=== PATIENT | female | born 1970 | race Caucasian/White ===

== ENCOUNTER 2017-12-24 19:26 | Observation (INO) | payer OTHER ==
--- NOTE | 2017-12-24 20:17 | EDPHYS ---
Physician Documentation [facility] Name: Heather Coon Age: 47 yrs Sex: Female : 1970 Arrival Date: 12/24/2017 Time: 19:32 Bed 30 Private MD: Aki Hoffmann E ED Physician Derrick Santillan HPI: 12/24 20:12 This 47 yrs old Female presents to ER via Ambulatory with complaints of fabrice Abdominal Pain, Vomiting. 20:12 The patient presents to the emergency department with nausea, vomiting, abdominal pain, fabrice of the left upper quadrant and left lower quadrant. Onset: The symptoms/episode began/occurred 5 day(s) ago. Possible causes: unknown. The symptoms are aggravated by movement, pressure, food , The symptoms are alleviated by remaining still. Associated signs and symptoms: The patient has no apparent associated signs or symptoms. Severity of symptoms: At their worst the symptoms were moderate. The patient has not experienced similar symptoms in the past. 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 - Social history:: Smoking status: Patient uses tobacco products, smokes one pack cigarettes per day. - Ebola Screening: : Patient negative for fever greater than or equal to 101.5 degrees Fahrenheit, and additional compatible Ebola Virus Disease symptoms Patient denies exposure to infectious person Patient denies travel to an Ebola-affected area in the 21 days before illness onset No symptoms or risks identified at this time. - Family history:: not pertinent. ROS: 20:12 Constitutional: Negative for fever, chills, and weight loss, Eyes: Negative for injury, fabrice pain, redness, and discharge, ENT: Negative for injury, pain, and discharge, Neck: Negative for injury, pain, and swelling, Cardiovascular: Negative for chest pain, palpitations, and edema, Respiratory: Negative for shortness of breath, cough, wheezing, and pleuritic chest pain, Back: Negative for injury and pain, : Negative for injury, bleeding, discharge, and swelling, MS/Extremity: Negative for injury and deformity, Skin: Negative for injury, rash, and discoloration, Neuro: Negative for headache, weakness, numbness, tingling, and seizure, Psych: Negative for depression, anxiety, suicide ideation, homicidal ideation, and hallucinations, Allergy/Immunology: Negative for hives, rash, and allergies, Endocrine: Negative for neck swelling, polydipsia, polyuria, polyphagia, and marked weight changes, Hematologic/Lymphatic: Negative for swollen nodes, abnormal bleeding, and unusual bruising. 20:12 Abdomen/GI: Positive for abdominal pain, nausea, vomiting, of the left upper quadrant and left lower quadrant. Exam: 20:12 Constitutional: This is a well developed, well nourished patient who is awake, alert, fabrice and in no acute distress. Head/Face: Normocephalic, atraumatic. Eyes: Pupils equal round and reactive to light, extra-ocular motions intact. Lids and lashes normal. Conjunctiva and sclera are non-icteric and not injected. Cornea within normal limits. Periorbital areas with no swelling, redness, or edema. ENT: Nares patent. No nasal discharge, no septal abnormalities noted. Tympanic membranes are normal and external auditory canals are clear. Oropharynx with no redness, swelling, or masses, exudates, or evidence of obstruction, uvula midline. Mucous membranes moist. Neck: Trachea midline, no thyromegaly or masses palpated, and no cervical lymphadenopathy. Supple, full range of motion without nuchal rigidity, or vertebral point tenderness. No Meningismus. Chest/axilla: Normal chest wall appearance and motion. Nontender with no deformity. No lesions are appreciated. Back: No spinal tenderness. No costovertebral tenderness. Full range of motion. Female : Normal external genitalia. Skin: Warm, dry with normal turgor. Normal color with no rashes, no lesions, and no evidence of cellulitis. MS/ Extremity: Pulses equal, no cyanosis. Neurovascular intact. Full, normal range of motion. Neuro: Awake and alert, GCS 15, oriented to person, place, time, and situation. Cranial nerves II-XII grossly intact. Motor strength 5/5 in all extremities. Sensory grossly intact. Cerebellar exam normal. Normal gait. Psych: Awake, alert, with orientation to person, place and time. Behavior, mood, and affect are within normal limits. 20:12 Cardiovascular: Rate: tachycardic, Rhythm: regular, Pulses: Pulses are 4+ in bilateral radial, brachial, femoral, popliteal, posterior tibial and and dorsalis pedis arteries.. Heart sounds: normal, Edema: is not appreciated, JVD: is not appreciated. 20:19 Respiratory: the patient does not display signs of respiratory distress, Respirations: fabrice normal, Breath sounds: rhonchi, wheezing: inspiratory expiratory Vital Signs: 19:39 BP 131 / 100; Pulse 117; Resp 22; Temp 97.8; Pulse Ox 98% on R/A; Weight 81.65 kg; aj Height 5 ft. 3 in. (160.02 cm); 21:00 BP 142 / 84; Pulse 80; Resp 20; Pulse Ox 98% on R/A; Pain 6/10; ed1 23:54 BP 153 / 93; Pulse 82; Resp 20; Temp 98.9(O); Pulse Ox 97% on R/A; Pain 6/10; ed1 19:39 Body Mass Index 31.89 (81.65 kg, 160.02 cm) aj MDM: 19:47 Patient medically screened. [facility] 20:12 Data reviewed: vital signs, nurses notes, lab test result(s), EKG, radiologic studies, [facility] CT scan, plain films. 12/24 20:10 Order name: Basic Metabolic Panel; Complete Time: :36 [facility] 12/24 20:10 Order name: BNP; Complete Time: 21:36 [facility] 12/24 20:10 Order name: CBC with Diff; Complete Time: 21:36 [facility] 12/24 20:10 Order name: Ckmb; Complete Time: 21:36 [facility] 12/24 20:10 Order name: CPK; Complete Time: :36 [facility] 12/24 20:10 Order name: LFT's; Complete Time: 21:36 [facility] 12/24 20:10 Order name: Magnesium; Complete Time: :36 [facility] 12/24 20:10 Order name: PT-INR; Complete Time: :36 [facility] 12/24 20:10 Order name: Ptt, Activated; Complete Time: 21:36 [facility] 12/24 20:10 Order name: Troponin (emerg Dept Use Only); Complete Time: 21:36 [facility] 12/24 20:10 Order name: Lipase; Complete Time: 21:36 [facility] 12/24 20:10 Order name: Urine Culture [facility] 12/24 23:06 Order name: Urine Dipstick--Ancillary (enter results) ms 12/24 23:08 Order name: Urine --Ancillary (enter results) ms 12/24 20:10 Order name: Urine Test (obtain specimen); Complete Time: 23:05 [facility] 12/24 20:10 Order name: XRAY Chest (1 view) [facility] 12/24 20:10 Order name: EKG; Complete Time: 20:11 [facility] 12/24 20:10 Order name: Cardiac monitoring; Complete Time: 21:01 [facility] 12/24 20:10 Order name: CT Abd/Pelvis - W/Contrast [facility] 12/24 22:02 Order name: RAD; Complete Time: 23:19 EDMS 12/24 23:10 Order name: Urine Dipstick-Ancillary; Complete Time: 23:19 EDAR 12/25 00:19 Order name: Urine --Ancillary EDAR 12/24 20:10 Order name: EKG - Nurse/Tech; Complete Time: 22:21 [facility] 12/24 20:10 Order name: IV Saline Lock; Complete Time: 21:01 [facility] 12/24 20:10 Order name: Labs collected and sent; Complete Time: 21:01 [facility] 12/24 20:10 Order name: O2 Per Protocol; Complete Time: 21:01 [facility] 12/24 20:10 Order name: O2 Sat Monitoring; Complete Time: 21:01 [facility] 12/24 20:10 Order name: Urine Dipstick-Ancillary (obtain specimen); Complete Time: 23:05 [facility] Administered Medications: 20:36 Drug: morphine 4 mg Route: IVP; Site: left antecubital; fc 21:41 Follow up: Response: No adverse reaction; Pain is decreased ed1 20:36 Drug: Zofran 4 mg Route: IVP; Site: left antecubital; fc 21:41 Follow up: Response: No adverse reaction; Nausea is decreased ed1 20:36 Drug: Pepcid 20 mg Route: IVP; Site: left antecubital; fc 21:41 Follow up: Response: No adverse reaction ed1 20:57 Drug: NS 0.9% 1000 ml Route: IV; Rate: 1 bolus; Site: left antecubital; ed1 23:55 Follow up: IV Status: Completed infusion; IV Intake: 1000ml ed1 20:57 Drug: Flagyl 500 mg Volume: 100 ml; Route: IVPB; Rate: 200 ml/hr; Infused Over: 30 ed1 mins; Site: left antecubital; 21:42 Follow up: Response: No adverse reaction; IV Status: Completed infusion; IV Intake: ed1 100ml 21:42 Drug: Cipro 400 mg Volume: 200 ml; Route: IVPB; Infused Over: 60 mins; Site: left ed1 antecubital; 23:05 Follow up: Response: No adverse reaction; IV Status: Completed infusion ed1 21:42 Drug: Zofran 4 mg Route: IVP; Site: left antecubital; ed1 23:05 Follow up: Response: No adverse reaction; Nausea is decreased ed1 23:11 Drug: Albuterol - atroVENT (3:1) (2.5 mg - 0.5 mg) 3 ml Route: Nebulizer; ed1 23:54 Follow up: Response: No adverse reaction ed1 Disposition: 12/24/17 20:16 Hospitalization ordered by Darrick Fry for Inpatient Admission. Preliminary diagnosis are Abdominal tenderness, Diverticulitis of small intestine without perforation or abscess without bleeding. - Bed requested for Telemetry/MedSurg (Inpatient). - Status is Inpatient Admission. ed1 - Condition is Stable. - Problem is new. - Symptoms have improved. UTI on Admission? No Signatures: Dispatcher [employer] EDMS Aicha Vera RN RN mw Myers, Amanda, RN RN aj Anderson, Corey, MD MD cha Chretien, Felicia RN Nereyda Cabral, PAPER SORTER PAPER SORTER ed1 Corrections: (The following items were deleted from the chart) 20:21 20:16 Hospitalization Ordered by Darrick Fry MD for Inpatient Admission. Preliminary jeison diagnosis is Abdominal tenderness; Diverticulitis of small intestine without perforation or abscess without bleeding. Bed requested for Telemetry/MedSurg (Inpatient). Status is Inpatient Admission. Condition is Stable. Problem is new. Symptoms have improved. UTI on Admission? No. fabrice 12/25 00:45 12/24 20:21 12/24/2017 20:16 Hospitalization Ordered by Darrick Fry MD for Inpatient ed1 Admission. Preliminary diagnosis is Abdominal tenderness; Diverticulitis of small intestine without perforation or abscess without bleeding. Bed requested for Telemetry/MedSurg (Inpatient). Status is Inpatient Admission. Condition is Stable. Problem is new. Symptoms have improved. UTI on Admission? No. mw
--- NOTE | 2017-12-24 20:17 | ER ---
Nurse's Notes [facility] Name: Heather Coon Age: 47 yrs Sex: Female : 1970 Arrival Date: 12/24/2017 Time: 19:32 Bed 30 Private MD: Aki Hoffmann E Diagnosis: Abdominal tenderness;Diverticulitis of small intestine without perforation or abscess without bleeding Presentation: 12/24 19:37 Presenting complaint: Patient states: LLQ pain with vomiting for 5 days. Transition of aj care: patient was not received from another setting of care. Onset of symptoms was December 19, 2017. Risk Assessment: Do you want to hurt yourself or someone else? Patient reports no desire to harm self or others. Care prior to arrival: None. 19:37 Method Of Arrival: Ambulatory aj 19:37 Acuity: ANDER 3 aj 23:53 Initial Sepsis Screen: Does the patient meet any 2 criteria? No. Patient's initial ed1 sepsis screen is negative. Does the patient have a suspected source of infection? No. Patient's initial sepsis screen is negative. Triage Assessment: 19:39 General: Appears in no apparent distress. uncomfortable, Behavior is calm, cooperative, aj appropriate for age. Pain: Complains of pain in left lower quadrant. Neuro: Level of Consciousness is awake, alert, obeys commands, Oriented to person, place, time, situation, Appropriate for age. Respiratory: Airway is patent Respiratory effort is even, unlabored, Respiratory pattern is regular, symmetrical. GI: Reports lower abdominal pain, nausea, vomiting. Derm: Skin is intact, is healthy with good turgor, Skin is pink, warm \T\ dry. normal. 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 - Social history:: Smoking status: Patient uses tobacco products, smokes one pack cigarettes per day. - Ebola Screening: : Patient negative for fever greater than or equal to 101.5 degrees Fahrenheit, and additional compatible Ebola Virus Disease symptoms Patient denies exposure to infectious person Patient denies travel to an Ebola-affected area in the 21 days before illness onset No symptoms or risks identified at this time. - Family history:: not pertinent. Screenin:55 Abuse screen: Denies threats or abuse. Denies injuries from another. Nutritional ed1 screening: No deficits noted. Tuberculosis screening: No symptoms or risk factors identified. Fall Risk None identified. Assessment: 19:55 General: Appears uncomfortable, Behavior is calm, cooperative. Pain: Complains of pain ed1 in abdomen and left lower quadrant Pain does not radiate. Pain currently is 10 out of 10 on a pain scale. Quality of pain is described as sharp, shooting, stabbing, Pain began 5 days ago. Neuro: Level of Consciousness is awake, alert, obeys commands, Oriented to person, place, time, situation. Cardiovascular: Denies chest pain, Heart tones S1 S2 present. Respiratory: Airway is patent Respiratory effort is even, unlabored, Respiratory pattern is regular, symmetrical, Breath sounds are clear bilaterally. GI: Abdomen is obese, Bowel sounds present X 4 quads. Abd is soft and non tender X 4 quads. Reports nausea, vomiting, Patient currently denies diarrhea. : No signs and/or symptoms were reported regarding the genitourinary system. EENT: No signs and/or symptoms were reported regarding the EENT system. Derm: Skin is pink, warm \T\ dry. Musculoskeletal: Circulation, motion, and sensation intact. 21:00 Reassessment: Patient appears in no apparent distress at this time. Patient and/or ed1 family updated on plan of care and expected duration. Pain level reassessed. Patient is alert, oriented x 3, equal unlabored respirations, skin warm/dry/pink. Patient states feeling better. Patient states symptoms have improved. 21:43 Reassessment: Pt vomiting. New orders received. ed1 23:54 Reassessment: Patient appears in no apparent distress at this time. Patient and/or ed1 family updated on plan of care and expected duration. Pain level reassessed. Patient is alert, oriented x 3, equal unlabored respirations, skin warm/dry/pink. Patient states symptoms have not improved. Vital Signs: 19:39 BP 131 / 100; Pulse 117; Resp 22; Temp 97.8; Pulse Ox 98% on R/A; Weight 81.65 kg; aj Height 5 ft. 3 in. (160.02 cm); 21:00 BP 142 / 84; Pulse 80; Resp 20; Pulse Ox 98% on R/A; Pain 6/10; ed1 23:54 BP 153 / 93; Pulse 82; Resp 20; Temp 98.9(O); Pulse Ox 97% on R/A; Pain 6/10; ed1 19:39 Body Mass Index 31.89 (81.65 kg, 160.02 cm) aj ED Course: 19:32 Patient arrived in ED. es 19:33 Aki Hoffmann MD is Private Physician. es 19:38 Triage completed. aj 19:39 Arm band placed on left wrist. Patient placed in an exam room. aj 19:40 Nereyda Nelson LVN is Primary Nurse. ed1 19:47 Derrick Santillan MD is Attending Physician. fabrice 19:53 Initial lab(s) drawn, by me, held in ED. Inserted saline lock: 22 gauge in right ed1 antecubital area, using aseptic technique. Blood collected. 19:55 Patient has correct armband on for positive identification. Bed in low position. Call ed1 light in reach. 20:14 Oral contrast given. kw1 20:15 Darrick Fry MD is Hospitalizing Provider. fabrice 20:25 X-ray completed. Portable x-ray completed in exam room. Patient tolerated procedure mh1 well. 22:[address] 2 23:04 CT completed. Patient tolerated procedure well. Patient moved back from CT. ma 23:53 No provider procedures requiring assistance completed. Patient admitted, IV remains in ed1 place. intact. Administered Medications: 20:36 Drug: morphine 4 mg Route: IVP; Site: left antecubital; fc 21:41 Follow up: Response: No adverse reaction; Pain is decreased ed1 20:36 Drug: Zofran 4 mg Route: IVP; Site: left antecubital; fc 21:41 Follow up: Response: No adverse reaction; Nausea is decreased ed1 20:36 Drug: Pepcid 20 mg Route: IVP; Site: left antecubital; fc 21:41 Follow up: Response: No adverse reaction ed1 20:57 Drug: NS 0.9% 1000 ml Route: IV; Rate: 1 bolus; Site: left antecubital; ed1 23:55 Follow up: IV Status: Completed infusion; IV Intake: 1000ml ed1 20:57 Drug: Flagyl 500 mg Volume: 100 ml; Route: IVPB; Rate: 200 ml/hr; Infused Over: 30 ed1 mins; Site: left antecubital; 21:42 Follow up: Response: No adverse reaction; IV Status: Completed infusion; IV Intake: ed1 100ml 21:42 Drug: Cipro 400 mg Volume: 200 ml; Route: IVPB; Infused Over: 60 mins; Site: left ed1 antecubital; 23:05 Follow up: Response: No adverse reaction; IV Status: Completed infusion ed1 21:42 Drug: Zofran 4 mg Route: IVP; Site: left antecubital; ed1 23:05 Follow up: Response: No adverse reaction; Nausea is decreased ed1 23:11 Drug: Albuterol - atroVENT (3:1) (2.5 mg - 0.5 mg) 3 ml Route: Nebulizer; ed1 23:54 Follow up: Response: No adverse reaction ed1 Intake: 21:42 IV: 100ml; Total: 100ml. ed1 23:55 IV: 1000ml; Total: 1100ml. ed1 Outcome: 20:16 Decision to Hospitalize by Provider. [facility] 12/25 00:45 Admitted to Tele accompanied by tech, via wheelchair, room 412, with chart, Report ed1 called to BETH Smallwood Condition: stable Discharge instructions given to patient, Instructed on the need for admit, Demonstrated understanding of instructions. 00:45 Patient left the ED. ed1 Signatures: Freida Leonard RN Derrick Damon MD MD cha Salyer, Edna es Harvey, Martha 1 Purnima Alston RN RN fc Riggs, Erika, LVN LVN ed1 Titus Ramirez Victoria 2 Lisette Arrieta kw1
[2017-12-24] MEDS ORDERED: NA CHLORIDE 0.9% 0 ML ONE (20:23)
[2017-12-24] MEDS ORDERED: MORPHINE 4 MG/ML SYR ONE (20:23)
[2017-12-24] MEDS ORDERED: ONDANSETRON 4 MG/2 ML VIAL ONE ×2 (20:23→21:39)
[2017-12-24] MEDS ORDERED: CIPROFLOXACIN 400mg IV 400 MG/200 ML BAG IV ONE (20:23)
[2017-12-24] MEDS ORDERED: METRONIDAZOLE 500mg IVPB 500 MG/100 ML BAG IV ONE (20:23)
[2017-12-24] MEDS ORDERED: FAMOTIDINE 20 MG/2 ML VIAL IV ONE (20:23)
[2017-12-24 20:46] LABS: Absolute Lymphocytes (CBC) 2.8 K/uL (0.7-4.9); Absolute Monocytes 0.9 K/uL (0.1-1.3); Absolute Neutrophil 7.1 K/uL (1.8-8.0); Basophils % 0.9 % (0-1.3); Hematocrit 36.6 % (36.0-45.0); Lymphocytes % 25.4 % (15.3-44.8); MCV 81.2 fL (80-100); Monocytes % 8.2 % (3.3-12.3)
[2017-12-24 20:50] LABS: Protime INR 0.95
[2017-12-24 20:56] LABS: Bicarbonate 25 mEq/L (21-31); Glucose Level 99 mg/dL (65-120); Lipase 37 U/L (22-51); Potassium 3.7 mEq/L (3.6-5.0); Sodium Level 138 mEq/L (135-145)
[2017-12-24 21:02] LABS: ALT/SGPT 17 IU/L (10-60); AST/SGOT 20 IU/L (10-42); Albumin 3.9 g/dL (3.2-5.5); Alkaline Phosphatase 68 IU/L (42-121); BUN Blood Urea Nitrogen 20 mg/dL (6-20); Bilirubin Direct < 0.1 mg/dL (0-0.2); Bilirubin Total 0.2 mg/dL (0.3-1.2); Creatine Phosphokinase 322 IU/L (22-269); Magnesium 1.9 mg/dL (1.8-2.5); Protein, Total 7.1 g/dL (6.0-8.3)
[2017-12-24] MEDS ORDERED: ACETAMINOPHEN 500 MG TAB PO PRN (21:27)
[2017-12-24] MEDS ORDERED: ALBUTEROL 2.5 MG/3 ML NEB SOL ONE (21:37)
[2017-12-24] MEDS ORDERED: IPRATROPIUM BROM 0.5MG/2.5ML ONE (21:37)
[2017-12-24] MEDS ORDERED: Levofloxacin500mg IV 500 MG/100 ML BAG IV SCH (22:00)
--- NOTE | 2017-12-24 22:02 | RAD REPORT ---
EXAM DESCRIPTION: Leno Single View12/24/2017 8:28 pm CLINICAL HISTORY: Abdominal pain COMPARISON: December 2016 FINDINGS: The lungs appear clear of acute infiltrate. The heart is normal size IMPRESSION: No acute abnormalities displayed
[2017-12-24 23:09] LABS: Urine Blood 1+ (NEG); Urine Glucose NEGATIVE (NEG); Urine Protein NEGATIVE (NEG); Urine Specific Gravity 1.025 (1.005-1.030)
[2017-12-25 00:19] LABS: Urine Specific Gravity 1.025 (1.005-1.030)
[2017-12-25 01:18] VITALS: BMI 37.0
[2017-12-25] MEDS: ONDANSETRON 4 MG/2 ML VIAL IV PRN ×2 (01:41→07:37)
[2017-12-25] MEDS: NA CHLORIDE 0.9% 1,000 ML IV SCH ×2 (01:42→08:00)
[2017-12-25] MEDS: MORPHINE 4 MG/ML SYR IV PRN ×2 (02:14→07:34)
[2017-12-25 04:46] LABS: Absolute Lymphocytes (CBC) 3.5 K/uL (0.7-4.9); Absolute Monocytes 0.7 K/uL (0.1-1.3); Absolute Neutrophil 4.9 K/uL (1.8-8.0); Basophils % 0.9 % (0-1.3); Eosinophils % 1.6 % (0-4.4); Hematocrit 33.8 % (36.0-45.0); Lymphocytes % 37.3 % (15.3-44.8); MCH 26.7 pg (27.0-35.0); MCV 81.8 fL (80-100); MPV 6.8 fL (7.6-11.3); RBC Red Blood Cell Count 4.14 M/uL (3.86-4.86)
[2017-12-25 05:14] LABS: Albumin 3.3 g/dL (3.2-5.5); Bilirubin Total 0.3 mg/dL (0.3-1.2); Protein, Total 5.9 g/dL (6.0-8.3)
[2017-12-25] MEDS: METRONIDAZOLE 500mg IVPB 500 MG/100 ML BAG IV SCH ×2 (05:16)
[2017-12-25 05:24] LABS: Potassium 3.8 mEq/L (3.6-5.0)
--- NOTE | 2017-12-25 06:02 | P.HP ---
Certification for Inpatient Patient admitted to: Inpatient With expected LOS: >2 Midnights Patient will require the following post-hospital care: None Practitioner: I am a practitioner with admitting privileges, knowledge of patient current condition, hospital course, and medical plan of care. Services: Services provided to patient in accordance with Admission requirements found in Title 42 Section 412.3 of the Code of Federal Regulations Patient History Date of Service: 12/24/17 Reason for admission: Abdominal pain/diverticulitis History of Present Illness: Patient is a 47-year-old female came into the hospital with abdominal discomfort. Pain was diffuse abdomen. Pain has been on for the last 24 hr. Patient's pain had slowly worsened. Patient had a prior diagnosis of diverticulitis about a couple of years ago. She was supposed to follow-up for a colonoscopy. However, this was not done. Patient has had a recurrent flare- up of her diverticulitis. Patient has had fever shakes and chills along with abdominal pain and nausea and vomiting. Patient has also had diarrhea for the last couple of days. Patient will be admitted to the hospital for IV antibiotic therapy. Patient will be NPO and if nausea and vomiting have improved then will start her on a clear liquid diet in the morning. Patient will also need to follow-up for outpatient colonoscopy. Allergies fluoxetine HCl [From Prozac] Allergy (Mild, Verified 12/25/17 01:35) Hives/Rash Green tea Allergy (Unknown, Uncoded 12/25/17 01:36) Hives/Rash Home Medications: NK [No Home Meds] 01/01/15 - Past Medical/Surgical History Has patient received pneumonia vaccine in the past: Yes Diabetic: No -: COPD -: HTN -: migraines -: depression -: anxiety -: OCD -: Insomnia -: Pancreatitis -: 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 -: cholecystectomy -: 5 hand surgeries -: tonsilectomy - Family History Father History Unknown: Yes Mother Medical History: Heart disease, Hypertension, GI disease, Diabetes, Liver disease, Kidney disease - Social History Smoking Status: Current every day smoker Alcohol use: Yes CD- Drugs: Yes Caffeine use: Yes Place of Residence: Home Review of Systems 10-point ROS is otherwise unremarkable Physical Examination - Vital Signs Temperature: 97.7 F Blood Pressure: 133/86 Pulse: 90 Respirations: 20 Pulse Ox (%): 98 - Physical Exam General: Alert, In no apparent distress, Oriented x3 HEENT: Atraumatic, PERRLA, Mucous membr. moist/pink, EOMI, Sclerae nonicteric Neck: Supple, 2+ carotid pulse no bruit, No LAD, Without JVD or thyroid abnormality Respiratory: Clear to auscultation bilaterally, Normal air movement Cardiovascular: Regular rate/rhythm, Normal S1 S2, No murmurs Gastrointestinal: Normal bowel sounds, Soft and benign, Non-distended, No rebound, No guarding, Tenderness Musculoskeletal: No clubbing, No swelling, No tenderness Integumentary: No rashes Neurological: Normal gait, Normal speech, Normal strength at 5/5 x4 extr, Normal tone, Sensation intact, Cranial nerves 3-12 intact, Normal affect Lymphatics: No axilla or inguinal lymphadenopathy - Studies Laboratory Data (last 24 hrs) 12/24/17 19:53: PT 11.2, INR 0.95, APTT 29.2 12/24/17 19:53: WBC 11.1 H, Hgb 12.1, Hct 36.6, Plt Count 495 H 12/24/17 19:53: B-Natriuretic Peptide 14 12/24/17 19:53: Sodium 138, Potassium 3.7, BUN 20, Creatinine 1.00, Glucose 99, Magnesium 1.9, Total Bilirubin 0.2 L, AST 20, ALT 17, Alkaline Phosphatase 68, Lipase 37 Assessment & Plan - Problems (Diagnosis) (1) Diverticulitis Current Visit: Yes Status: Acute (2) Diarrhea in adult patient Current Visit: Yes Status: Acute (3) Intractable nausea and vomiting Onset Date: 01/01/15 Current Visit: No Status: Acute - Plan Pain: 1. Continue with IV hydration 2. Continue with IV antibiotics 3. Continue with pain control 4. NPO 5. GI consultation; outpatient colonoscopy in 6-12 weeks 6. Serial H&H, and we will monitor CBC, BMP, LFTs and lipase along with electrolytes. 7. GI and DVT prophylaxis Discharge Plan: Home Plan to discharge in: 24 Hours - Advance Directives Does patient have a Living Will: No Does patient have a Durable POA for Healthcare: No - Code Status/Comfort Care Code Status Assessed: Yes Code Status: Full Code Critical Care: No Time Spent Managing PTS Care (In Minutes): 50
[2017-12-25] MEDS ORDERED: KCL 20 MEQ/100 mL IVPB 20 MEQ/100 ML BAG IV SCH (07:00)
--- NOTE | 2017-12-25 07:20 | EKG ---
Test Date: 2017-12-24 Test Time: 22:05:53 Travel Assistant: VICENTA MEASUREMENT RESULTS: Intervals: Rate: 72 [place]: 162 QRSD: 90 QT: 344 QTc: 376 [place]: P: 260 [place]: 162 QRS: 105 T: 23 INTERPRETIVE STATEMENTS: Unusual P axis, possible ectopic atrial rhythm with undetermined rhythm irregularity Rightward axis Pulmonary disease pattern Nonspecific T wave abnormality Abnormal ECG Compared to ECG 07/07/2017 21:30:42 T-wave abnormality now present Sinus rhythm no longer present Electronically Signed On 12-25-17 07:19:35 CDT by Migel Warren
[2017-12-25] MEDS ORDERED: Morphine 2 MG/2 ML SYR IV PRN (07:37)
[2017-12-25 08:07] VITALS: BP 190/87; TEMP 98.1
--- NOTE | 2017-12-25 08:29 | RAD REPORT ---
EXAM DESCRIPTION: CTAbdomen Pelvis W Contrast - 12/25/2017 5:06 am CLINICAL HISTORY: Abdominal pain. COMPARISON: 12/28/2014, 11/13/2014 TECHNIQUE: Biphasic CT imaging of the abdomen and pelvis was performed with 100 ml non-ionic IV cont rast. All CT scans are performed using dose optimization technique as appropriate and may include automated exposure control or mA/KV adjustment according to patient size. FINDINGS: The lung bases are clear. The liver, spleen, pancreas, right adrenal gland and kidneys are within normal limits. 2.7 cm left ad renal mass is noted, likely an adenoma and appearing unchanged. No bowel obstruction, free air, free fluid or abscess. Mild sigmoid diverticulosis. The appendix is n ormal. No evidence of significant lymphadenopathy. No suspicious bony findings. IMPRESSION: No acute intra-abdominal or pelvic finding. 2.7 cm left adrenal adenoma, stable.
[2017-12-25] MEDS ORDERED: ENOXAPARIN 40 MG/0.4 ML SQ SCH (09:00)
[2017-12-25 13:18] VITALS: O2SAT 100
--- NOTE | 2017-12-25 16:59 | P.DS ---
Admission Date: 12/24/17 Discharge Date: 12/25/17 Disposition: ROUTINE DISCHARGE Discharge Condition: FAIR Reason for Admission: Abdominal pain/diverticulitis - Problems (1) Diverticulitis Onset Date: 12/25/17 Status: Acute Brief History of Present Illness: Patient is a 47-year-old female came into the hospital with abdominal discomfort. Pain was diffuse abdomen. Pain has been on for the last 24 hr. Patient's pain had slowly worsened. Patient had a prior diagnosis of diverticulitis about a couple of years ago. She was supposed to follow-up for a colonoscopy. However, this was not done. Patient has had a recurrent flare- up of her diverticulitis. Patient has had fever shakes and chills along with abdominal pain and nausea and vomiting. Patient has also had diarrhea for the last couple of days. Patient will be admitted to the hospital for IV antibiotic therapy. Patient will be NPO and if nausea and vomiting have improved then will start her on a clear liquid diet in the morning. Patient will also need to follow-up for outpatient colonoscopy. Hospital Course: She was admitted for acute diverticulitis and was treated with IV abx with improvemnt. WBC is normal. She wants to go home. She is stable and ready to be discharged on oral abx. She has no complications. F/U with GI Dr Vazquez. Vital Signs/Physical Exam: Temp Pulse Resp BP Pulse Ox 98.1 F 84 20 190/87 H 100 12/25/17 08:00 12/25/17 08:00 12/25/17 08:00 12/25/17 08:00 12/25/17 08:00 General: Alert, In no apparent distress HEENT: Atraumatic, PERRLA, EOMI Neck: Supple, JVD not distended Respiratory: Clear to auscultation bilaterally, Normal air movement Cardiovascular: Regular rate/rhythm, Normal S1 S2 Gastrointestinal: Normal bowel sounds, Tenderness Musculoskeletal: No tenderness Integumentary: No rashes Neurological: Normal speech, Normal tone, Normal affect Lymphatics: No axilla or inguinal lymphadenopathy Laboratory Data at Discharge: WBC 9.3 K/uL (4.3-10.9) D 12/25/17 04:13 Hgb 11.1 g/dL (12.0-15.0) L 12/25/17 04:13 Hct 33.8 % (36.0-45.0) L 12/25/17 04:13 Plt Count 467 K/uL (152-406) H 12/25/17 04:13 PT 11.2 SECONDS (9.5-12.5) 12/24/17 19:53 INR 0.95 12/24/17 19:53 APTT 29.2 SECONDS (24.3-36.9) 12/24/17 19:53 Sodium 137 mEq/L (135-145) 12/25/17 04:13 Potassium 3.8 mEq/L (3.6-5.0) 12/25/17 04:13 BUN 16 mg/dL (6-20) 12/25/17 04:13 Creatinine 0.84 mg/dL (0.44-1.00) 12/25/17 04:13 Glucose 99 mg/dL (65-120) 12/25/17 04:13 Magnesium 1.9 mg/dL (1.8-2.5) 12/24/17 19:53 Total Bilirubin 0.3 mg/dL (0.3-1.2) 12/25/17 04:13 AST 16 IU/L (10-42) 12/25/17 04:13 ALT 14 IU/L (10-60) 12/25/17 04:13 Alkaline Phosphatase 60 IU/L (42-121) 12/25/17 04:13 B-Natriuretic Peptide 14 pg/ml (<=100) 12/24/17 19:53 Lipase 37 U/L (22-51) 12/24/17 19:53 Home Medications: Levofloxacin [Levaquin] 500 mg PO DAILY #14 tablet 12/25/17 metroNIDAZOLE [Flagyl] 500 mg PO Q8H #21 tablet 12/25/17 New Medications: Levofloxacin [Levaquin] 500 mg PO DAILY #14 tablet metroNIDAZOLE [Flagyl] 500 mg PO Q8H #21 tablet Diet: Regular Activity: Ad geovanna Followup: Aki Hoffmann MD [ACTIVE - CAN ADMIT] - 1-2 Weeks (call the office to make an appointmen tin 1-2 weeks.) Diana Vazquez MD [ACTIVE - CAN ADMIT] - 2-3 Days (follow up on Thursday, call today to make an appointment) Time spent managing pt's care (in minutes): 35
== END 2017-12-25 09:44 | disposition home or self-care (01) ==
LOC: ER 19:26 → INTOOBSV 20:17 → ERHOLD 20:17 → 4TH 12-25 00:07
PROVIDERS: ADMIT Hospitalist; ATTEND Hospitalist
DX: K57.92 Diverticulitis of intestine, part unspecified, without perforation or abscess without bleeding (principal); J44.9 Chronic obstructive pulmonary disease, unspecified; I10 Essential (primary) hypertension
CPT/HCPCS: 36415; 71045; 74177; 80048; 80053; 80076; 81003; 81025; 82550; 82553; 83690; 83735; 83880; 84484; 85025; 85610; 85730; 87086; 87088; 93005; 94640; 96361; 96365; 96367; 96375; 99285; G0378; J0744; J1650; J2405; J7030; Q9967

== ENCOUNTER 2018-01-08 00:07 | Emergency (ER) | payer OTHER, SELFPAY ==
[2018-01-08] MEDS ORDERED: KETOROLAC 30 MG/ML INJ ONE (01:00)
--- NOTE | 2018-01-08 02:48 | ER ---
Nurse's Notes [facility] Name: Heather Coon Age: 47 yrs Sex: Female : 1970 Arrival Date: 01/08/2018 Time: 00:10 Bed 8 Private MD: Aki Hoffmann E Diagnosis: Sprain of ligaments of cervical spine;Contusion of lower back and pelvis;Chronic pain syndrome Presentation: 01/08 00:22 Presenting complaint: Patient states: c/o back pain from a fall last states bb she has "seizures associated with anxiety" does not take seizure medication, pain has gotten progressively worse. 00:23 Transition of care: patient was not received from another setting of care. Onset of bb symptoms was December 31, 2017. Risk Assessment: Do you want to hurt yourself or someone else? Patient reports no desire to harm self or others. Initial Sepsis Screen: Does the patient meet any 2 criteria? No. Patient's initial sepsis screen is negative. Does the patient have a suspected source of infection? No. Patient's initial sepsis screen is negative. Care prior to arrival: None. 00:23 Method Of Arrival: Ambulatory bb 00:23 Acuity: ANDER 4 bb ACTIVITY COORDINATOR: 00:25 LMP 01/04/2018 bb Historical: - Allergies: 00:25 Fluoxetine; bb 00:25 Green Tea; bb 00:25 Prozac; bb - Home Meds: 00:25 lisinopril-hydrochlorothiazide 20-12.5 mg oral tab 1 tab once daily [Active]; Zofran bb Oral [Active]; - PMHx: 00:25 Anxiety; Bipolar disorder; Chronic pain; Depression; Diverticulitis; Herniated Back bb Disc; Hypertension; Myocardial infarction; pt reports hx of seizures; Spastic Muscles; - PSHx: 00:25 Cholecystectomy; neck fusion; Carpal Tunnel Repair; right foot; bb - Immunization history:: Adult Immunizations up to date. - Social history:: Smoking status: Patient uses tobacco products, smokes one pack cigarettes per day. - Ebola Screening: : No symptoms or risks identified at this time. Screenin:26 Abuse screen: Denies threats or abuse. Denies injuries from another. Nutritional mg2 screening: No deficits noted. Tuberculosis screening: No symptoms or risk factors identified. Fall Risk Fall in past 12 months (25 points). Gait- Weak (10 pts.). Assessment: 00:24 General: Appears uncomfortable, Behavior is cooperative, anxious. Pain: Complains of mg2 pain in back Pain does not radiate. Pain currently is 10 out of 10 on a pain scale. Quality of pain is described as aching, sharp, shooting, Pain began this morning Is Aggravated by increased activity, repositioning, weight bearing. Neuro: Level of Consciousness is awake, alert, obeys commands, Oriented to person, place, time, situation. Cardiovascular: Capillary refill < 3 seconds Patient's skin is warm and dry. Respiratory: Airway is patent Respiratory effort is even, unlabored, Respiratory pattern is regular, symmetrical. GI: No signs and/or symptoms were reported involving the gastrointestinal system. : No signs and/or symptoms were reported regarding the genitourinary system. EENT: No signs and/or symptoms were reported regarding the EENT system. Derm: Skin is intact, Skin is pink, warm \\T\\ dry. normal. Musculoskeletal: Circulation, motion, and sensation intact. Reports pain in lower back since this morning after a fall. Pain is 10 out of 10 on a pain scale. Injury Description: Bruise sustained to lower back is purple. 02:55 Reassessment: Patient is insisting for demerol injection. She dont need the injection mg2 as per Dr. singh. She left ED as normal discharge. Vital Signs: 00:25 BP 141 / 108; Pulse 146; Resp 22 S; Temp 99.3(O); Pulse Ox 100% on R/A; Weight 94.8 kg bb (R); Height 5 ft. 3 in. (160.02 cm) (R); Pain 10/10; 00:48 BP 149 / 109; Pulse 127; Resp 20; Pulse Ox 99% ; Pain 10/10; mg2 02:07 Pulse 102; Resp 18; Pulse Ox 100% ; mg2 02:30 BP 135 / 78; Pulse 99; Resp 18; Pulse Ox 100% on R/A; Pain 6/10; mg2 00:25 Body Mass Index 37.02 (94.80 kg, 160.02 cm) bb ED Course: 00:10 Patient arrived in ED. es 00:11 Aki Hoffmann MD is Private Physician. es 00:13 Allan Singh MD is Attending Physician. gs 00:23 Triage completed. bb 00:24 Yfn Castillo, RN is Primary Nurse. mg2 00:25 Arm band placed on Patient placed in an exam room, on a stretcher, on pulse oximetry. bb 00:27 Patient has correct armband on for positive identification. Placed in gown. Bed in low mg2 position. Call light in reach. Side rails up X2. Pulse ox on. NIBP on. Door closed. Warm blanket given. Head of bed Elevated. 01:26 CT completed. Patient tolerated procedure well. Patient moved to CT via stretcher. Patient moved to radiology. 01:27 CT C Spine In Process Unspecified. EDMS 01:31 X-ray completed. Patient tolerated procedure well. kw 01:31 Patient moved back from radiology. kw 01:32 Lumbar Spine (3 Views) XRAY In Process Unspecified. EDMS 02:59 No provider procedures requiring assistance completed. Patient did not have IV access mg2 during this emergency room visit. Administered Medications: 01:01 Drug: TORadol 30 mg Route: IM; Site: left gluteus; mg2 03:00 Follow up: Response: No adverse reaction; Pain is decreased mg2 Outcome: 02:47 Discharge ordered by . gs 02:58 Discharged to home ambulatory. mg2 02:58 Condition: improved 03:00 Discharge instructions given to patient, by Dr Singh. mg2 03:01 Patient left the ED. mg2 Signatures: Dispatcher [employer] Di Mancia Ervin eh Ballard, Brenda, BETH RN Katy Metz Gregory, MD MD Yfn Castillo, RN RN mg2
--- NOTE | 2018-01-08 02:48 | EDPHYS ---
Physician Documentation [facility] Name: Heather Coon Age: 47 yrs Sex: Female : 1970 Arrival Date: 01/08/2018 Time: 00:10 Bed 8 Private MD: Aki Hoffmann E ED Physician Allan Griffin HPI: 01/08 02:37 This 47 yrs old Female presents to ER via Ambulatory with complaints of Back gs Pain, Neck and Upper Back Pain, Chest Pain. 02:38 The patient presents with pain that is acute, that is chronic. The symptoms are located gs in the low back, neck. Onset: The symptoms/episode began/occurred 1 week(s) ago. The pain does not radiate. Associated signs and symptoms: Pertinent negatives: incontinence, tingling, urinary retention. Modifying factors: the patient symptoms are aggravated by movement. Severity of symptoms: At their worst the symptoms were moderate, in the emergency department the symptoms are unchanged. The patient has experienced similar episodes in the past, several times. says had sz and fell complaining of pain ever since. RN CASE MANAGER HOSPICE: 00:25 LMP 01/04/2018 bb Historical: - Allergies: 00:25 Fluoxetine; bb 00:25 Green Tea; bb 00:25 Prozac; bb - Home Meds: 00:25 lisinopril-hydrochlorothiazide 20-12.5 mg oral tab 1 tab once daily [Active]; Zofran bb Oral [Active]; - PMHx: 00:25 Anxiety; Bipolar disorder; Chronic pain; Depression; Diverticulitis; Herniated Back bb Disc; Hypertension; Myocardial infarction; pt reports hx of seizures; Spastic Muscles; - PSHx: 00:25 Cholecystectomy; neck fusion; Carpal Tunnel Repair; right foot; bb - Immunization history:: Adult Immunizations up to date. - Social history:: Smoking status: Patient uses tobacco products, smokes one pack cigarettes per day. - Ebola Screening: : No symptoms or risks identified at this time. ROS: 02:38 All other systems are negative. gs Exam: 02:38 Head/Face: Normocephalic, atraumatic. Eyes: Pupils equal round and reactive to light, gs extra-ocular motions intact. Lids and lashes normal. Conjunctiva and sclera are non-icteric and not injected. Cornea within normal limits. Periorbital areas with no swelling, redness, or edema. ENT: Nares patent. No nasal discharge, no septal abnormalities noted. Tympanic membranes are normal and external auditory canals are clear. Oropharynx with no redness, swelling, or masses, exudates, or evidence of obstruction, uvula midline. Mucous membranes moist. Chest/axilla: Normal chest wall appearance and motion. Nontender with no deformity. No lesions are appreciated. Cardiovascular: Regular rate and rhythm with a normal S1 and S2. No gallops, murmurs, or rubs. Normal PMI, no JVD. No pulse deficits. Respiratory: Lungs have equal breath sounds bilaterally, clear to auscultation and percussion. No rales, rhonchi or wheezes noted. No increased work of breathing, no retractions or nasal flaring. Abdomen/GI: Soft, non-tender, with normal bowel sounds. No distension or tympany. No guarding or rebound. No evidence of tenderness throughout. Skin: Warm, dry with normal turgor. Normal color with no rashes, no lesions, and no evidence of cellulitis. MS/ Extremity: Pulses equal, no cyanosis. Neurovascular intact. Full, normal range of motion. Neuro: Awake and alert, GCS 15, oriented to person, place, time, and situation. Cranial nerves II-XII grossly intact. Motor strength 5/5 in all extremities. Sensory grossly intact. Cerebellar exam normal. Normal gait. 02:38 Constitutional: The patient appears alert, awake. 02:38 Neck: C-spine: vertebral tenderness, that is mild, appreciated at C4 and C5. 02:38 Back: vertebral tenderness, is appreciated at L2 and L3. 02:38 Back: some bruising on back. Vital Signs: 00:25 BP 141 / 108; Pulse 146; Resp 22 S; Temp 99.3(O); Pulse Ox 100% on R/A; Weight 94.8 kg bb (R); Height 5 ft. 3 in. (160.02 cm) (R); Pain 10/10; 00:48 BP 149 / 109; Pulse 127; Resp 20; Pulse Ox 99% ; Pain 10/10; mg2 02:07 Pulse 102; Resp 18; Pulse Ox 100% ; mg2 02:30 BP 135 / 78; Pulse 99; Resp 18; Pulse Ox 100% on R/A; Pain 6/10; mg2 00:25 Body Mass Index 37.02 (94.80 kg, 160.02 cm) bb MDM: 00:46 Patient medically screened. 02:38 Differential diagnosis: chronic back pain, Fracture sprain. Data reviewed: vital signs, nurses notes. Response to treatment: the patient's symptoms have mildly improved after treatment, and as a result, I will discharge patient. 01/08 00:56 Order name: CT C Spine; Complete Time: 10:54 01/08 00:56 Order name: Lumbar Spine (3 Views) XRAY Administered Medications: 01:01 Drug: TORadol 30 mg Route: IM; Site: left gluteus; mg2 03:00 Follow up: Response: No adverse reaction; Pain is decreased mg2 Disposition: 01/08/18 02:47 Discharged to Home. Impression: Sprain of ligaments of cervical spine, Contusion of lower back and pelvis, Chronic pain syndrome. - Condition is Stable. - Discharge Instructions: Chronic Pain, Cervical Sprain. - Medication Reconciliation Form, Thank You Letter, Antibiotic Education, Prescription Opioid Use form. - Follow up: Private Physician; When: 2 - 3 days; Reason: Re-evaluation by your physician. Signatures: Dispatcher [employer] Lisa Gaona RN RN Jones Parham MD MD rn Starr, Gregory, MD MD Yfn Castillo RN RN mg2 Corrections: (The following items were deleted from the chart) 03:01 02:47 01/08/2018 02:47 Discharged to Home. Impression: Sprain of ligaments of cervical mg2 spine; Contusion of lower back and pelvis; Chronic pain syndrome. Condition is Stable. Forms are Medication Reconciliation Form, Thank You Letter, Antibiotic Education, Prescription Opioid Use. Follow up: Private Physician; When: 2 - 3 days; Reason: Re-evaluation by your physician.
[2018-01-08 03:36] VITALS: TEMP 99.3
[2018-01-08 03:38] VITALS: O2SAT 100
[2018-01-08 03:39] VITALS: BP 135/78
--- NOTE | 2018-01-08 09:53 | RAD REPORT ---
EXAM DESCRIPTION: CT - C Spine Wo Con - 01/08/2018 4:27 am CLINICAL HISTORY: Neck injury status post fall. Surgery date 6+ months cervical spine fusion COMPARISON: 2015 TECHNIQUE: Computed axial tomography of the cervical spine were obtained with sagittal and coronal r econstruction images generated and reviewed. A preliminary report was generated by virtual radiologic and reviewed prior to this dictation All CT scans are performed using dose optimization technique as appropriate and may include automated exposure control or mA/KV adjustment according to patient size. FINDINGS: Anterior fusion involves C4 through C7 by plate, screws and bone plugs. The alignment of the cervical spine is satisfactory. No fracture or dislocation is seen. Significant central/foraminal spinal stenosis is not noted. IMPRESSION: A cervical fracture is not seen. Anterior fusion of C4 through C7 If the patient continues have symptoms to suggest spinal cord/spinal canal pathology then MRI would b e recommended.
--- NOTE | 2018-01-08 12:12 | RAD REPORT ---
EXAM DESCRIPTION: RAD - Lumbar Spine 3 Views - 01/08/2018 1:35 am CLINICAL HISTORY: Back pain. COMPARISON: December 24, 2017. FINDINGS: The alignment of the lumbar spine is satisfactory. No fracture is seen. Disc space narrowing involves L4-L5 with subchondral sclerosis. It is without obvious change from the prior examination. IMPRESSION: 1. No fracture is seen. 2. Disc space narrowing with subchondral sclerosis involving L4-L5. This may be secondary to degenera tive changes. A discitis can also have this appearance and should be correlated clinically and with a ppropriate lab values. 3. The examination was discussed with Octaviano Betancourt in the emergency room at 10:05 a.m. on January 08 8.
== END 2018-01-08 03:01 | disposition home or self-care (01) ==
LOC: ER 00:07
DX: S13.4XXA Sprain of ligaments of cervical spine, initial encounter (principal); S30.0XXA Contusion of lower back and pelvis, initial encounter; G89.4 Chronic pain syndrome; I10 Essential (primary) hypertension; I25.2 Old myocardial infarction; F32.9 Major depressive disorder, single episode, unspecified; F17.210 Nicotine dependence, cigarettes, uncomplicated; F41.9 Anxiety disorder, unspecified; Z88.5 Allergy status to narcotic agent; Z88.8 Allergy status to other drugs, medicaments and biological substances; Z91.018 Allergy to other foods
CPT/HCPCS: 72100; 72125; 96372; 99284

== ENCOUNTER 2019-03-23 08:58 | Emergency (ER) | payer OTHER ==
--- OUTSIDE RECORDS SUMMARY | 2019-03-23 09:03 | XMS REPORT ---
:1970 [facility] Address [address] [place] [address] Dr. Banda [address] [place] [id number] Care Team Providers Name Role Phone Unavailable Unavailable Unavailable Problems This patient has no known problems. Allergies, Adverse Reactions, Alerts This patient has no known allergies or adverse reactions. Medications This patient has no known medications.
--- OUTSIDE RECORDS SUMMARY | 2019-03-23 09:03 | XMS REPORT | Summary of Care ---
:1970 Author Organization [address] [address] Care Team Providers Name Role Phone Jose Perez MD Primary Care Provider Reason for Visit Reason Comments Refill Request Encounter Details Date Type Department Care Team Description 03/09/2019 Refill [facility] Yehuda Arcos MD Refill Request Neurology-[address] [place] [id number] [address] [address] [place] [address] [phone] Allergies Active Allergy Reactions Severity Noted Date Comments Diclofenac Hypertension 11/21/2015 Green Tea Other - See comments Medium 08/10/2015 Seizures Fluoxetine Hcl Hives 03/19/2015 documented as of this encounter (statuses as of 03/09/2019) Medications Medication Sig Dispensed Refills Start Date End Date Status MULTIVITAMIN ORAL Take 1 Tab by 0 Active mouth daily. omega-3 fatty Take 1 g by mouth 0 Active acids-vitamin E (FISH daily. OIL) 1,000 mg capsule loratadine (CLARITIN Take by mouth 0 Active LIQUI-GEL) 10 mg daily. capsule carvedilol (COREG) Take 1 Tab by 60 Tab 3 09/20/2015 Active 6.25 mg tablet mouth 2 (two) times daily with meals. amLODIPine (NORVASC) Take 1 Tab by 90 Tab 1 09/20/2015 Active 10 mg tablet mouth daily. lisinopril Take 1 Tab by 90 Tab 1 09/20/2015 Active (PRINIVIL,ZESTRIL) 40 mouth daily. mg tablet proMETHazine Take 1 tablet by 20 tablet 0 11/21/2015 Active (PHENERGAN) 25 mg mouth every 6 tablet (six) hours as needed for Nausea and Vomiting (N/V). LISINOPRIL-HYDROCHLORO Take by mouth. 0 Active THIAZIDE ORAL lisinopril-hydrochloro Take 1 tablet by 0 Active thiazide 20-12.5 mg mouth daily. per tablet ondansetron (ZOFRAN) 4 Take 4 mg by 0 Active mg tablet mouth every 8 (eight) hours as needed. pantoprazole Take 40 mg by 0 Active (PROTONIX) 40 mg EC mouth daily. tablet ZONISAMIDE 100 mg TAKE 1 CAPSULE BY 60 capsule 1 11/15/2018 Active capsule MOUTH TWICE A DAY documented as of this encounter (statuses as of 03/09/2019) Active Problems Problem Noted Date Bilateral acute otitis media, recurrence not specified, unspecified otitis 05/2016 media type Lumbar spinal stenosis 09/28/2015 Right-sided low back pain with sciatica, sciatica laterality unspecified 09/27 Generalized anxiety disorder 09/28/2015 Agoraphobia 09/28/2015 Bipolar disorder, in partial remission, most recent episode manic 09/28/2015 Obsessive compulsive disorder 09/28/2015 Breast mass, left 09/18/2015 Anxiety 09/18/2015 Lower back pain 09/18/2015 High blood pressure 09/18/2015 COPD (chronic obstructive pulmonary disease) 09/18/2015 Obesity 09/18/2015 documented as of this encounter (statuses as of 03/09/2019) Resolved Problems Problem Noted Date Resolved Date Breast pain 09/18/2015 09/18/2015 documented as of this encounter (statuses as of 03/09/2019) Social History Tobacco Use Types Packs/Day Years Used Date Current Every Day Smoker Cigarettes, Cigars 1 30 Smokeless Tobacco: Never Used Alcohol Use Drinks/Week oz/Week Comments No 0 Standard drinks or equivalent 0.0 Sex Assigned at Date Recorded Not on file Job Start Date Occupation Industry Not on file Not on file Not on file Travel History Travel Start Travel End No recent travel history available. documented as of this encounter Last Filed Vital Signs Not on filedocumented in this encounter Plan of Treatment Health Maintenance Due Date Last Done Comments PNEUMOCOCCAL 0-64 YEARS COMBINED SERIES (1 of 1 - 01/14/1978 PPSV23) DTaP,Tdap,and Td Vaccines (1 - Tdap) 01/14/1991 PAP SMEAR 01/14/1993 MAMMOGRAM 09/16/2016 09/17/2015 INFLUENZA VACCINE (#1) 2019 documented as of this encounter Implants Implanted Type Area Mechanical Estimator Device Shelf Model / Identifier Expiration Serial / Lot Date [id number] Snap Screw SCREW Right: [facility] [id number] / Implanted: Qty: 1 on 08/14/2015 by Luis Jones Jr., DPM at [facility] [employer] [id number] / [id number] documented as of this encounter Results Not on filedocumented in this encounter Insurance Payer Benefit Plan / Group Subscriber ID Effective Dates Phone Address Type AETNA AETNA HMO [id number] 2017-Present HMO documented as of this encounter
[2019-03-23] MEDS ORDERED: ONDANSETRON 4 MG/2 ML VIAL ONE (10:16)
[2019-03-23] MEDS ORDERED: MORPHINE 4 MG/ML SYR ONE (10:16)
[2019-03-23 10:23] LABS: Absolute Lymphocytes (CBC) 1.6 K/uL (0.7-4.9); Basophils % 1.2 % (0-1.3); Hematocrit 40.5 % (36.0-45.0); Lymphocytes % 19.8 % (15.3-44.8); MPV 6.5 fL (7.6-11.3); RBC Red Blood Cell Count 5.03 M/uL (3.86-4.86)
[2019-03-23 10:35] LABS: Potassium 3.1 mmol/L (3.5-5.1)
--- NOTE | 2019-03-23 10:35 | RAD REPORT ---
EXAM DESCRIPTION: CT - CTHCSPWOC - 03/23/2019 10:25 am CLINICAL HISTORY: Trauma, head and neck injury. PAIN COMPARISON: C Spine Wo Con dated 01/08/2018; CT HEAD CSPINE MPR WO CONTRAST dated 10/02/2012 TECHNIQUE: Axial 5 mm thick images of the head were obtained. Axial 2 mm thick images of the cervical spine were obtained with sagittal and coronal reconstruction images generated and reviewed. All CT scans are performed using dose optimization technique as appropriate and may include automated exposure control or mA/KV adjustment according to patient size. FINDINGS: CT HEAD WITHOUT CONTRAST: No acute hemorrhage, hydrocephalus or extra-axial collection is identified.No areas of brain edema or midline shift. Small by mucus is seen in the left maxillary antrum. The paranasal sinuses and mastoids are otherwise clear.The calvarium is intact. CT CERVICAL SPINE WITHOUT CONTRAST: No fracture or subluxation.Changes of ACDF spanning C4-7. No hardware complication seen.No prevertebr al soft tissues swelling is identified. IMPRESSION: No acute intracranial or cervical spine findings.
--- NOTE | 2019-03-23 10:51 | RAD REPORT ---
EXAM DESCRIPTION: RAD - Lumbar Spine 3 Views - 03/23/2019 10:40 am CLINICAL HISTORY: BACK PAIN Radiculopathy COMPARISON: <Comparisons> FINDINGS: Vertebral body heights appear maintained. No compression fracture noted. Moderately severe degenerative spondylosis is present at L4-5 with vacuum disc degeneration and small endplate osteoph yte. No spondylolysis or spondylolisthesis. Cholecystectomy clips. Aortic atherosclerosis. IMPRESSION: Moderately severe spondylosis L4-5.
--- NOTE | 2019-03-23 11:16 | ER ---
Nurse's Notes [facility] Name: Heather Coon Age: 49 yrs Sex: Female : 1970 Arrival Date: 03/23/2019 Time: 09:01 Bed 6 Private MD: Diagnosis: Epilepsy and recurrent seizures;Contusion of unspecified part of neck;Contusion of lower back and pelvis Presentation: 03/23 09:15 Presenting complaint: Patient states: Patient reports she had a mild seizure last night ss and another one this morning causing her to have severe neck pain. Patient has a history of neck issues/ surgeries. She believes since she has been under a lot of stress, her seizure medication has not been working. Patient has also been out of her hypertensive medication x 10 days. Transition of care: patient was not received from another setting of care. Onset of symptoms was March 23, 2019. Risk Assessment: Do you want to hurt yourself or someone else? Patient reports no desire to harm self or others. Initial Sepsis Screen: Does the patient meet any 2 criteria? No. Patient's initial sepsis screen is negative. Does the patient have a suspected source of infection? No. Patient's initial sepsis screen is negative. Care prior to arrival: None. 09:15 Method Of Arrival: Ambulatory ss 09:15 Acuity: ANDER 3 ss Historical: - Allergies: 09:17 Fluoxetine; ss 09:17 Prozac; ss - Home Meds: 09:17 unknown anticonvulsant [Active]; ss - PMHx: 09:17 Anxiety; Bipolar disorder; Chronic pain; Depression; Diverticulitis; Herniated Back ss Disc; Hypertension; Myocardial infarction; pt reports hx of seizures; Spastic Muscles; - PSHx: 09:17 Cholecystectomy; neck fusion; Carpal Tunnel Repair; right foot; ss - Immunization history:: Adult Immunizations up to date. - Social history:: Smoking status: Patient uses tobacco products, smokes one pack cigarettes per day. - Ebola Screening: : Patient denies exposure to infectious person Patient denies travel to an Ebola-affected area in the 21 days before illness onset. Screenin:10 Abuse screen: Denies threats or abuse. Denies injuries from another. Nutritional sv screening: No deficits noted. Tuberculosis screening: No symptoms or risk factors identified. Fall Risk None identified. Assessment: 09:20 General: Appears in no apparent distress. uncomfortable, well groomed, well developed, sv Behavior is calm, cooperative, appropriate for age. Pain: Complains of pain in back of neck Pain currently is 7 out of 10 on a pain scale. Pain began this morning after rolling out of bed Is continuous. Neuro: Level of Consciousness is awake, alert, obeys commands, Oriented to person, place, time, situation, Moves all extremities. Full function Gait is steady, Speech is normal. Neuro: Seizure activity reported prior to arrival. Respiratory: Airway is patent Respiratory effort is even, unlabored, Respiratory pattern is regular, symmetrical. Derm: Skin is pink, warm \T\ dry. Musculoskeletal: Range of motion: intact in all extremities. 10:16 Reassessment: Patient appears in no apparent distress at this time. No changes from sv previously documented assessment. Patient and/or family updated on plan of care and expected duration. Pain level reassessed. Patient is alert, oriented x 3, equal unlabored respirations, skin warm/dry/pink. 11:32 Reassessment: Patient appears in no apparent distress at this time. Patient and/or sv family updated on plan of care and expected duration. Pain level reassessed. Patient is alert, oriented x 3, equal unlabored respirations, skin warm/dry/pink. Patient states feeling better. Vital Signs: 09:17 BP 153 / 119; Pulse 91; Resp 18; Temp 98.9(O); Pulse Ox 100% on R/A; Height 5 ft. 3 in. ss (160.02 cm); Pain 7/10; 09:56 BP 139 / 95; Pulse 73; Resp 18; Pulse Ox 99% ; sv 11:32 BP 130 / 88; Pulse 77; Resp 16; Pulse Ox 99% ; sv Nicole Coma Score: 09:20 Eye Response: spontaneous(4). Verbal Response: oriented(5). Motor Response: obeys sv commands(6). Total: 15. ED Course: 09:01 Patient arrived in ED. mr 09:12 Kendall Guerrero NP is PHCP. pm1 09:12 Jones Parham MD is Attending Physician. pm1 09:16 Triage completed. ss 09:17 Arm band placed on right wrist. ss 09:20 Heather Ellsworth RN is Primary Nurse. sv 09:20 Seizure precautions initiated. sv 10:10 Patient has correct armband on for positive identification. Bed in low position. Call sv light in reach. Side rails up X 1. Pulse ox on. NIBP on. Door closed. Head of bed elevated. 10:15 Initial lab(s) drawn, by me, sent to lab. Inserted saline lock: 20 gauge in left sv forearm, using aseptic technique. Blood collected. Flushed left forearm with 5 ml normal saline. 10:32 CT Head C Spine In Process Unspecified. EDMS 10:49 Lumbar Spine 3 Views In Process Unspecified. EDMS 11:33 No provider procedures requiring assistance completed. IV discontinued, intact, sv bleeding controlled, No redness/swelling at site. Pressure dressing applied. Administered Medications: 10:16 Drug: Zofran 4 mg Route: IVP; Site: left forearm; sv 11:00 Follow up: Response: No adverse reaction sv 10:18 Drug: morphine 4 mg {Note: RASS 0.} Route: IVP; Site: left forearm; sv 11:00 Follow up: Response: No adverse reaction; Marked relief of symptoms; RASS: Alert and sv Calm (0) 11:31 Drug: Potassium Chloride 40 mEq Route: PO; sv 11:31 Follow up: Response: Medication administered at discharge. sv 11:31 Drug: TORadol 30 mg Route: IVP; Site: right forearm; sv 11:31 Follow up: Response: Medication administered at discharge. sv Outcome: 11:14 Discharge ordered by MD. pm1 11:33 Discharged to home ambulatory, with family. sv 11:33 Condition: stable 11:33 Discharge instructions given to patient, Instructed on discharge instructions, follow up and referral plans. no drinking with medication, no driving heavy equipment, medication usage, Demonstrated understanding of instructions, follow-up care, medications, Prescriptions given X 1. 11:33 Patient left the ED. sv Signatures: Dispatcher [employer] Heather Luque RN RN sv Rivera, Mary mr Smirch, Shelby, RN RN ss Kendall Guerrero, RUBY COLLAR TURNER pm1 Corrections: (The following items were deleted from the chart) 10:19 10:18 morphine 4 mg IVP in left forearm sv sv
--- NOTE | 2019-03-23 11:17 | EDPHYS ---
Physician Documentation [facility] Name: Heather Coon Age: 49 yrs Sex: Female : 1970 Arrival Date: 03/23/2019 Time: 09:01 Bed 6 Private MD: ED Physician Jones Parham HPI: 03/23 11:05 This 49 yrs old Female presents to ER via Ambulatory with complaints of pm1 Probable Seizure, Neck Problem. 11:05 The patient presents with a history of multiple seizures, a total of 2, One last night pm1 and one this AM. 11:05 Character of seizure(s): Loss of consciousness: it is not known if the patient pm1 experienced loss of consciousness, Motor activity: generalized, Incontinence: none, Apnea: the patient did not experience apnea, Circulation: the patient did not experience evidence of pulse disturbance. Context: the seizure(s) was witnessed, by family, last night and she was caught before she fell, this AM seizure she rolled of the bed and woke up with neck pain and low back pain. Seizure Hx: Seizure medications: Zonegran. Associated injury: Neck: pain, Back: pain. Current symptoms: Currently, the patient is not experiencing any symptoms. The patient has experienced similar episodes in the past, multiple times. Historical: - Allergies: 09:17 Fluoxetine; ss 09:17 Prozac; ss - Home Meds: :17 unknown anticonvulsant [Active]; ss - PMHx: 09:17 Anxiety; Bipolar disorder; Chronic pain; Depression; Diverticulitis; Herniated Back ss Disc; Hypertension; Myocardial infarction; pt reports hx of seizures; Spastic Muscles; - PSHx: 09:17 Cholecystectomy; neck fusion; Carpal Tunnel Repair; right foot; ss - Immunization history:: Adult Immunizations up to date. - Social history:: Smoking status: Patient uses tobacco products, smokes one pack cigarettes per day. - Ebola Screening: : Patient denies exposure to infectious person Patient denies travel to an Ebola-affected area in the 21 days before illness onset. ROS: 11:05 Constitutional: Negative for fever, chills, and weight loss, Eyes: Negative for injury, pm1 pain, redness, and discharge, ENT: Negative for injury, pain, and discharge. 11:05 Cardiovascular: Negative for chest pain, palpitations, and edema, Respiratory: Negative for shortness of breath, cough, wheezing, and pleuritic chest pain, Abdomen/GI: Negative for abdominal pain, nausea, vomiting, diarrhea, and constipation. 11:05 : Negative for injury, bleeding, discharge, and swelling, MS/Extremity: Negative for injury and deformity, Skin: Negative for injury, rash, and discoloration. 11:05 Neck: Positive for pain with movement, pain at rest, Negative for swollen nodes. 11:05 Back: Positive for of the low back area, pain. 11:05 Neuro: Positive for headache, seizure activity, Negative for numbness, tingling. Exam: 11:05 Constitutional: This is a well developed, well nourished patient who is awake, alert, pm1 and in no acute distress. Head/Face: Normocephalic, atraumatic. Eyes: Pupils equal round and reactive to light, extra-ocular motions intact. Lids and lashes normal. Conjunctiva and sclera are non-icteric and not injected. Cornea within normal limits. Periorbital areas with no swelling, redness, or edema. ENT: Nares patent. No nasal discharge, no septal abnormalities noted. Tympanic membranes are normal and external auditory canals are clear. Oropharynx with no redness, swelling, or masses, exudates, or evidence of obstruction, uvula midline. Mucous membranes moist. Chest/axilla: Normal chest wall appearance and motion. Nontender with no deformity. No lesions are appreciated. Cardiovascular: Regular rate and rhythm with a normal S1 and S2. No gallops, murmurs, or rubs. Normal PMI, no JVD. No pulse deficits. Respiratory: Lungs have equal breath sounds bilaterally, clear to auscultation and percussion. No rales, rhonchi or wheezes noted. No increased work of breathing, no retractions or nasal flaring. 11:05 Abdomen/GI: Soft, non-tender, with normal bowel sounds. No distension or tympany. No guarding or rebound. No evidence of tenderness throughout. Back: No spinal tenderness. No costovertebral tenderness. Full range of motion. Skin: Warm, dry with normal turgor. Normal color with no rashes, no lesions, and no evidence of cellulitis. MS/ Extremity: Pulses equal, no cyanosis. Neurovascular intact. Full, normal range of motion. 11:05 Neck: External neck: tenderness, that is mild, of the left trapezius and right trapezius, C-spine: vertebral tenderness, is not appreciated. 11:05 Neuro: Orientation: is normal, Cranial nerves: CN II- XII are normal as tested, Motor: is normal, moves all fours, Sensation: is normal, no obvious gross deficits. Vital Signs: 09:17 BP 153 / 119; Pulse 91; Resp 18; Temp 98.9(O); Pulse Ox 100% on R/A; Height 5 ft. 3 in. ss (160.02 cm); Pain 7/10; 09:56 BP 139 / 95; Pulse 73; Resp 18; Pulse Ox 99% ; sv 11:32 BP 130 / 88; Pulse 77; Resp 16; Pulse Ox 99% ; sv Nicole Coma Score: 09:20 Eye Response: spontaneous(4). Verbal Response: oriented(5). Motor Response: obeys sv commands(6). Total: 15. MDM: 09:17 Patient medically screened. pm1 11:04 Data reviewed: vital signs. Data interpreted: Pulse oximetry: on room air is 99 %. pm1 Interpretation: normal. 11:12 Counseling: I had a detailed discussion with the patient and/or guardian regarding: the pm1 historical points, exam findings, and any diagnostic results supporting the discharge/admit diagnosis, lab results, radiology results, the need for outpatient follow up, to return to the emergency department if symptoms worsen or persist or if there are any questions or concerns that arise at home. 03/23 10:04 Order name: CBC with Diff; Complete Time: 10:29 pm1 03/23 10:04 Order name: BMP; Complete Time: 10:41 pm1 03/23 10:04 Order name: CT Head C Spine pm1 03/23 10:39 Order name: Lumbar Spine 3 Views EDMS 03/23 10:04 Order name: IV Saline Lock; Complete Time: 10:14 pm1 Administered Medications: 10:16 Drug: Zofran 4 mg Route: IVP; Site: left forearm; sv 11:00 Follow up: Response: No adverse reaction sv 10:18 Drug: morphine 4 mg {Note: RASS 0.} Route: IVP; Site: left forearm; sv 11:00 Follow up: Response: No adverse reaction; Marked relief of symptoms; RASS: Alert and sv Calm (0) 11:31 Drug: Potassium Chloride 40 mEq Route: PO; sv 11:31 Follow up: Response: Medication administered at discharge. sv 11:31 Drug: TORadol 30 mg Route: IVP; Site: right forearm; sv 11:31 Follow up: Response: Medication administered at discharge. sv Disposition: 11:48 Co-signature as Attending Physician, Jones Parham MD. rn Disposition: 03/23/19 11:14 Discharged to Home. Impression: Epilepsy and recurrent seizures, Contusion of unspecified part of neck, Contusion of lower back and pelvis. - Condition is Stable. - Discharge Instructions: Contusion, Seizure, Adult, [id number]. - Prescriptions for Tylenol- Codeine #3 300-30 mg Oral Tablet - take 2 tablets by ORAL route every 6 hours As needed; 20 tablet. - Medication Reconciliation Form, Thank You Letter, Antibiotic Education, Prescription Opioid Use form. - Follow up: Emergency Department; When: As needed; Reason: Worsening of condition. Follow up: Private Physician; When: 2 - 3 days; Reason: Recheck today's complaints, Continuance of care, Re-evaluation by your physician. - Problem is new. - Symptoms have improved. Signatures: Dispatcher [employer] EDIN Heather Ellsworth RN Jones Salazar MD MD rn Smirch, Shelby, RN RN ss Marinas, Patrick, RUBY STRIPPING SHOVEL OPERATOR pm1 Corrections: (The following items were deleted from the chart) 10:49 10:31 Lumbar Spine 3 Views+RAD.RAD.BRZ ordered. [facility] EDIN 11:33 11:14 03/23/2019 11:14 Discharged to Home. Impression: Epilepsy and recurrent seizures; sv Contusion of unspecified part of neck; Contusion of lower back and pelvis. Condition is Stable. Forms are Medication Reconciliation Form, Thank You Letter, Antibiotic Education, Prescription Opioid Use. Follow up: Emergency Department; When: As needed; Reason: Worsening of condition. Follow up: Private Physician; When: 2 - 3 days; Reason: Recheck today's complaints, Continuance of care, Re-evaluation by your physician. Problem is new. Symptoms have improved. pm1
[2019-03-23] MEDS ORDERED: POTASSIUM CL SA 10 MEQ TAB PO ONE (11:18)
[2019-03-23] MEDS ORDERED: KETOROLAC 30 MG/ML INJ ONE (11:20)
[2019-03-23 11:54] VITALS: TEMP 98.9
[2019-03-23 11:55] VITALS: O2SAT 99
[2019-03-23 11:57] VITALS: BP 130/88
== END 2019-03-23 11:33 | disposition home or self-care (01) ==
LOC: ER 08:58
DX: S10.93XA Contusion of unspecified part of neck, initial encounter (principal); S30.0XXA Contusion of lower back and pelvis, initial encounter; G40.802 Other epilepsy, not intractable, without status epilepticus; W06.XXXA Fall from bed, initial encounter; Y93.9 Activity, unspecified; Y92.9 Unspecified place or not applicable; Z88.5 Allergy status to narcotic agent; I10 Essential (primary) hypertension; I25.2 Old myocardial infarction; F17.210 Nicotine dependence, cigarettes, uncomplicated
CPT/HCPCS: 85025; 80048; 36415; 70450; 72125; 72100; 96375; 96374; 99284; J2405

== ENCOUNTER 2019-06-12 12:07 | Emergency (ER) | payer OTHER, SELFPAY ==
--- OUTSIDE RECORDS SUMMARY | 2019-06-12 12:09 | XMS REPORT ---
:1970 [facility] Address [address] [place] [address] Dr. Banda [address] [place] [id number] Care Team Providers Name Role Phone Unavailable Unavailable Unavailable Problems This patient has no known problems. Allergies, Adverse Reactions, Alerts This patient has no known allergies or adverse reactions. Medications This patient has no known medications.
[2019-06-12] MEDS ORDERED: ONDANSETRON 4 MG/2 ML VIAL ONE ×2 (13:39→15:27)
[2019-06-12] MEDS ORDERED: MORPHINE 4 MG/ML SYR ONE ×2 (13:39→15:27)
[2019-06-12] MEDS ORDERED: NA CHLORIDE 0.9% 1,000 ML ONE (13:40)
[2019-06-12 14:14] LABS: Absolute Lymphocytes (CBC) 2.8 K/uL (0.7-4.9); Hematocrit 38.4 % (36.0-45.0); Lymphocytes % 30.7 % (15.3-44.8); MPV 6.6 fL (7.6-11.3); RBC Red Blood Cell Count 4.72 M/uL (3.86-4.86)
[2019-06-12 14:20] LABS: Urine Blood TRACE (NEG); Urine Glucose NEGATIVE (NEG); Urine Protein NEGATIVE (NEG); Urine Specific Gravity 1.015 (1.005-1.030)
[2019-06-12 14:30] LABS: ALT/SGPT 11 U/L (12-78); AST/SGOT 12 U/L (15-37); Albumin 3.7 g/dL (3.4-5.0); Alkaline Phosphatase 68 U/L (45-117); BUN Blood Urea Nitrogen 8 mg/dL (7-18); Bicarbonate 24 mmol/L (21-32); Bilirubin Direct < 0.1 mg/dL (0-0.2); Bilirubin Total 0.3 mg/dL (0.2-1.0); Glucose Level 85 mg/dL (74-106); Lipase 229 U/L (73-393); Potassium 3.8 mmol/L (3.5-5.1); Protein, Total 7.3 g/dL (6.4-8.2); Sodium Level 141 mmol/L (136-145); Troponin (Emerg Dept Use Only) < 0.02 ng/mL (0.0-0.045)
--- NOTE | 2019-06-12 15:27 | RAD REPORT ---
EXAM DESCRIPTION: CT - Abdomen Pelvis W Contrast - 06/12/2019 3:02 pm CLINICAL HISTORY: abdominal pain COMPARISON: CT study December 2017 TECHNIQUE: Biphasic, helical CT imaging of the abdomen and pelvis was performed following 100 ml non -ionic IV contrast. No oral contrast given. Due to technical difficulties with the scanner, patient h ad to be reimaged after approximately 30 mL of contrast administered. All CT scans are performed using dose optimization technique as appropriate and may include automated exposure control or mA/KV adjustment according to patient size. FINDINGS: No suspicious findings in the lung bases. The liver, spleen, and pancreas show no suspicious findings. Cholecystectomy clips are present. No bi liary tree dilatation. Symmetric renal function is seen with no hydronephrosis or suspicious renal mass. No pyelonephritis o r acute parenchymal process. No urinary bladder abnormality. Uterus and ovaries show no suspicious fi ndings. There is an involuting 2.7 centimeter left ovarian cyst. No cyst rupture or hemorrhage seen. Right adrenal gland is normal. Low-density left adrenal mass a 2.7 cm similar to 2018 study. No dilated bowel loops or bowel wall thickening. Minimal diverticulosis present on the left. Appendix is normal. No free air, free fluid or inflammatory stranding. No hernia, mass or bulky lymphadenopa thy. No suspicious bony findings. IMPRESSION: Contrast enhanced CT abdomen and pelvis showing no significant or suspicious finding. No significant change prior imaging. Nonacute findings detailed in the body of the report.
--- NOTE | 2019-06-12 15:42 | EDPHYS ---
Physician Documentation [facility] Name: Heather Coon Age: 49 yrs Sex: Female : 1970 Arrival Date: 06/12/2019 Time: 12:10 Bed 19 Private MD: ED Physician Matt Urias HPI: 06/12 13:34 This 49 yrs old Female presents to ER via Ambulatory with complaints of Chest jm Pain, Abdominal Pain. 13:34 The patient presents with abdominal pain. Onset: The symptoms/episode began/occurred jmm gradually, 1 week(s) ago. The symptoms do not radiate. 13:38 Associated signs and symptoms: Pertinent positives: constipation, Pertinent negatives: jmm fever. The symptoms are described as achy. The patient has experienced similar episodes in the past. This is a 49 year old female with a history of anxiety bipolar, diverticulitis that presents to the ED with complaints of abdominal pain beginning this past week with constipation. Denies vomiting, denies diarrhea. Similar to previous episodes of diverticulitis. . Historical: - Allergies: 12:13 Fluoxetine; sv 12:13 Green Tea; sv 12:13 Prozac; sv - PMHx: 12:13 Anxiety; Bipolar disorder; Chronic pain; Depression; Diverticulitis; Herniated Back sv Disc; Hypertension; Myocardial infarction; pt reports hx of seizures; Spastic Muscles; - PSHx: 12:13 Cholecystectomy; Carpal Tunnel Repair; neck fusion; right foot; sv - Immunization history:: Adult Immunizations up to date. - Social history:: Smoking status: unknown. - Ebola Screening: : Patient negative for fever greater than or equal to 101.5 degrees Fahrenheit, and additional compatible Ebola Virus Disease symptoms Patient denies exposure to infectious person Patient denies travel to an Ebola-affected area in the 21 days before illness onset No symptoms or risks identified at this time. ROS: 13:38 Constitutional: Negative for fever, chills, and weight loss. jmm 13:38 Respiratory: Negative for shortness of breath, cough, wheezing, and pleuritic chest pain. 13:38 Cardiovascular: Positive for chest pain. 13:38 Abdomen/GI: Positive for abdominal pain. 13:38 All other systems are negative. Exam: 13:38 Head/Face: atraumatic. Eyes: EOMI, no conjunctival erythema appreciated ENT: Moist jmm Mucus Membranes Neck: Trachea midline, Supple Chest/axilla: Normal chest wall appearance and motion. Cardiovascular: Regular rate and rhythm. No edema appreciated Respiratory: Normal respirations, no respiratory distress appreciated 13:38 Back: Normal ROM Skin: General appearance color normal MS/ Extremity: Moves all extremities, no obvious deformities appreciated, no edema noted to the lower extremities Neuro: Awake and alert, normal gait Psych: Behavior is normal, Mood is normal, Patient is cooperative and pleasant 13:38 Constitutional: The patient appears alert, awake, anxious. 13:38 Abdomen/GI: Inspection: abdomen appears normal, Bowel sounds: normal, Palpation: soft, moderate abdominal tenderness, in all quadrants. Vital Signs: 12:13 BP 146 / 98; Pulse 82; Resp 20; Temp 98.4; Pulse Ox 100% ; Weight 68.04 kg; Height 5 sv ft. 2 in. (157.48 cm); Pain 8/10; 14:14 BP 137 / 69; Pulse 79; Resp 18; Temp 98.9(O); Pulse Ox 100% on R/A; mh5 15:21 BP 161 / 96; Pulse 94; Resp 18; Pulse Ox 99% on R/A; Pain 7/10; em 16:24 BP 135 / 81; Pulse 84; Resp 18; Pulse Ox 99% on R/A; Pain 5/10; em 12:13 Body Mass Index 27.44 (68.04 kg, 157.48 cm) sv MDM: 13:29 Patient medically screened. [facility] 15:39 Data reviewed: vital signs, nurses notes. Counseling: I had a detailed discussion with [facility] the patient and/or guardian regarding: the historical points, exam findings, and any diagnostic results supporting the discharge/admit diagnosis, lab results, radiology results, the need for outpatient follow up, to return to the emergency department if symptoms worsen or persist or if there are any questions or concerns that arise at home. ED course: Patient is alert and non toxic in appearance in the ED. Patient advised to follow up with GI for reevaluation. Patient otherwise given strict return precautions. Patient understood and agrees with the plan of care. . 06/12 13:32 Order name: Basic Metabolic Panel; Complete Time: 14:34 [facility] 06/12 13:32 Order name: CBC with Diff; Complete Time: 14:34 [facility] 06/12 13:32 Order name: Creatinine for Radiology; Complete Time: 14:34 [facility] 06/12 13:32 Order name: Hepatic Function; Complete Time: 14:34 [facility] 06/12 13:32 Order name: Lipase; Complete Time: 14:34 [facility] 06/12 13:32 Order name: Troponin (emerg Dept Use Only); Complete Time: 14:34 [facility] 06/12 13:33 Order name: CT Abd/Pelvis - IV Contrast Only; Complete Time: 15:32 [facility] 06/12 13:33 Order name: Lactate; Complete Time: 14:34 [facility] 06/12 13:33 Order name: Procalcitonin; Complete Time: 14:40 [facility] 06/12 14:07 Order name: Urine Dipstick--Ancillary (enter results); Complete Time: 14:34 ms 06/12 14:07 Order name: Urine --Ancillary (enter results); Complete Time: 14:34 ms 06/12 12:21 Order name: EKG; Complete Time: 12:21 sv 06/12 12:21 Order name: EKG - Nurse/Tech; Complete Time: 12:21 sv 06/12 13:32 Order name: IV Saline Lock; Complete Time: 14:00 [facility] 06/12 13:32 Order name: Labs collected and sent; Complete Time: 14:00 [facility] Administered Medications: 13:54 Drug: NS 0.9% 1000 ml Route: IV; Rate: 1 bolus; Site: right antecubital; iw 15:30 Follow up: IV Status: Completed infusion; IV Intake: 1000ml em 13:54 Drug: morphine 4 mg Route: IVP; Site: right antecubital; iw 14:00 Follow up: Response: No adverse reaction; Pain is decreased em 13:54 Drug: Zofran 4 mg Route: IVP; Site: right antecubital; iw 14:26 Follow up: Response: No adverse reaction; Nausea is decreased em 15:36 Drug: Zofran 4 mg Route: IVP; Site: right antecubital; em 16:23 Follow up: Response: No adverse reaction; Nausea is decreased em 15:38 Drug: morphine 4 mg Route: IVP; Site: right antecubital; em 16:23 Follow up: Response: No adverse reaction; Pain is decreased em Disposition: 06/13 07:57 Co-signature as Attending Physician, Matt Urias MD I agree with the assessment and kdr plan of care. Disposition: 06/12/19 15:40 Discharged to Home. Impression: Abdominal and pelvic pain. - Condition is Stable. - Discharge Instructions: Abdominal Pain, Adult. - Prescriptions for Tylenol- Codeine #3 300-30 mg Oral Tablet - take 1 tablet by ORAL route every 6 hours As needed; 12 tablet. - Medication Reconciliation Form, Thank You Letter, Antibiotic Education, Prescription Opioid Use form. - Follow up: Private Physician; When: 2 - 3 days; Reason: Recheck today's complaints, Continuance of care, Re-evaluation by your physician. Follow up: Diana Vazquez MD; When: 2 - 3 days; Reason: Recheck today's complaints, Continuance of care, Re-evaluation by your physician. Signatures: Dispatcher [employer] Heather Luque, RN RN Matt Vila MD MD kdr Mickail, Joel, PA PA [facility] Ej Matias, CRYSTALLOGRAPHY TEACHER CRYSTALLOGRAPHY TEACHER em Lorena Vargas, RN RN iw Corrections: (The following items were deleted from the chart) 06/12 16:33 15:40 06/12/2019 15:40 Discharged to Home. Impression: Abdominal and pelvic pain. em Condition is Stable. Forms are Medication Reconciliation Form, Thank You Letter, Antibiotic Education, Prescription Opioid Use. Follow up: Private Physician; When: 2 - 3 days; Reason: Recheck today's complaints, Continuance of care, Re-evaluation by your physician. Follow up: Diana Vazquez; When: 2 - 3 days; Reason: Recheck today's complaints, Continuance of care, Re-evaluation by your physician. willis
--- NOTE | 2019-06-12 15:42 | ER ---
Nurse's Notes [facility] Name: Heather Coon Age: 49 yrs Sex: Female : 1970 Arrival Date: 06/12/2019 Time: 12:10 Bed 19 Private MD: Diagnosis: Abdominal and pelvic pain Presentation: 06/12 12:12 Presenting complaint: Patient states: "Ever since I had my last seizure about 2 weeks sv ago I just haven't been the same." c/o chest pain/abd pain/chills, nausea. Transition of care: patient was not received from another setting of care. Onset of symptoms was May 29, 2019. Care prior to arrival: None. 12:12 Method Of Arrival: Ambulatory sv 12:12 Acuity: ANDER 3 sv 13:20 Risk Assessment: Do you want to hurt yourself or someone else? Patient reports no em desire to harm self or others. Initial Sepsis Screen: Does the patient meet any 2 criteria? No. Patient's initial sepsis screen is negative. Does the patient have a suspected source of infection? No. Patient's initial sepsis screen is negative. Historical: - Allergies: 12:13 Fluoxetine; sv 12:13 Green Tea; sv 12:13 Prozac; sv - PMHx: 12:13 Anxiety; Bipolar disorder; Chronic pain; Depression; Diverticulitis; Herniated Back sv Disc; Hypertension; Myocardial infarction; pt reports hx of seizures; Spastic Muscles; - PSHx: 12:13 Cholecystectomy; Carpal Tunnel Repair; neck fusion; right foot; sv - Immunization history:: Adult Immunizations up to date. - Social history:: Smoking status: unknown. - Ebola Screening: : Patient negative for fever greater than or equal to 101.5 degrees Fahrenheit, and additional compatible Ebola Virus Disease symptoms Patient denies exposure to infectious person Patient denies travel to an Ebola-affected area in the 21 days before illness onset No symptoms or risks identified at this time. Screenin:20 Abuse screen: Denies threats or abuse. Nutritional screening: No deficits noted. em Tuberculosis screening: No symptoms or risk factors identified. Fall Risk None identified. Assessment: 13:20 General: Appears in no apparent distress. uncomfortable, Behavior is calm, cooperative, em Denies fever. Pain: Complains of pain in chest, right upper quadrant and left lower quadrant Pain does not radiate. Pain currently is 7 out of 10 on a pain scale. Pain began 2-3 days ago. Neuro: Level of Consciousness is awake, alert, obeys commands, Oriented to person, place, time, situation, Appropriate for age. Cardiovascular: Capillary refill < 3 seconds Patient's skin is warm and dry. Rhythm is regular Chest pain with the pain. Respiratory: Airway is patent Respiratory effort is even, unlabored, Respiratory pattern is regular, symmetrical. GI: Abdomen is flat, Reports nausea, vomiting. Derm: Skin is intact, is healthy with good turgor, Skin is pink, warm \\T\\ dry. Musculoskeletal: Capillary refill < 3 seconds, Range of motion: intact in all extremities. 14:00 Reassessment: Patient appears in no apparent distress at this time. Patient and/or em family updated on plan of care and expected duration. Pain level reassessed. Patient is alert, oriented x 3, equal unlabored respirations, skin warm/dry/pink. rates pain 4/10 Patient states feeling better. 15:19 Reassessment: Patient appears in no apparent distress at this time. Patient and/or em family updated on plan of care and expected duration. Pain level reassessed. Patient is alert, oriented x 3, equal unlabored respirations, skin warm/dry/pink. reports pain is coming back, also reports nausea is back. 16:23 Reassessment: Patient appears in no apparent distress at this time. Patient and/or em family updated on plan of care and expected duration. Pain level reassessed. Patient is alert, oriented x 3, equal unlabored respirations, skin warm/dry/pink. Patient states feeling better. Vital Signs: 12:13 BP 146 / 98; Pulse 82; Resp 20; Temp 98.4; Pulse Ox 100% ; Weight 68.04 kg; Height 5 sv ft. 2 in. (157.48 cm); Pain 8/10; 14:14 BP 137 / 69; Pulse 79; Resp 18; Temp 98.9(O); Pulse Ox 100% on R/A; mh5 15:21 BP 161 / 96; Pulse 94; Resp 18; Pulse Ox 99% on R/A; Pain 7/10; em 16:24 BP 135 / 81; Pulse 84; Resp 18; Pulse Ox 99% on R/A; Pain 5/10; em 12:13 Body Mass Index 27.44 (68.04 kg, 157.48 cm) sv ED Course: 12:10 Patient arrived in ED. mr 12:13 Triage completed. sv 12:14 Arm band placed on. sv 13:16 Ej Matias LVN is Primary Nurse. em 13:20 Octaviano Keith PA is PHCP. [facility] 13:20 Matt Urias MD is Attending Physician. jmm 13:20 Patient has correct armband on for positive identification. Placed in gown. Bed in low em position. Call light in reach. Side rails up X2. community organization director on. Pulse ox on. NIBP on. 13:20 Patient maintains SpO2 saturation greater than 95% on room air. em 13:50 Initial lab(s) drawn, by me, sent to lab. Inserted saline lock: 20 gauge in right em antecubital area, using aseptic technique. Blood collected. 14:11 Urine --Ancillary (enter results) Sent. [facility] 14:11 Urine Dipstick--Ancillary (enter results) Sent. [facility] 15:02 CT Abd/Pelvis - IV Contrast Only In Process Unspecified. EDMS 15:40 Diana Vazquez MD is Referral Physician. [facility] 16:22 No provider procedures requiring assistance completed. IV discontinued, intact, em bleeding controlled, No redness/swelling at site. Pressure dressing applied. Administered Medications: 13:54 Drug: NS 0.9% 1000 ml Route: IV; Rate: 1 bolus; Site: right antecubital; iw 15:30 Follow up: IV Status: Completed infusion; IV Intake: 1000ml em 13:54 Drug: morphine 4 mg Route: IVP; Site: right antecubital; iw 14:00 Follow up: Response: No adverse reaction; Pain is decreased em 13:54 Drug: Zofran 4 mg Route: IVP; Site: right antecubital; iw 14:26 Follow up: Response: No adverse reaction; Nausea is decreased em 15:36 Drug: Zofran 4 mg Route: IVP; Site: right antecubital; em 16:23 Follow up: Response: No adverse reaction; Nausea is decreased em 15:38 Drug: morphine 4 mg Route: IVP; Site: right antecubital; em 16:23 Follow up: Response: No adverse reaction; Pain is decreased em Intake: 15:30 IV: 1000ml; Total: 1000ml. em Outcome: 15:40 Discharge ordered by . willis 16:22 Discharged to home ambulatory, with family. em 16:22 Condition: good 16:22 Discharge instructions given to patient, family, Instructed on discharge instructions, follow up and referral plans. medication usage, Demonstrated understanding of instructions, follow-up care, medications, Prescriptions given X 1. 16:33 Patient left the ED. em Signatures: Dispatcher [employer] Heather Luque, RN RN Octaviano Jenkins PA PA jmm Rivera, Mary mr Florencio, Ej, ANIMAL TRAINER ANIMAL TRAINER Lorena Edwards, BETH [place] [id number]
[2019-06-12 17:22] VITALS: TEMP 98.9
[2019-06-12 17:23] VITALS: O2SAT 99
[2019-06-12 17:24] VITALS: BP 135/81
--- NOTE | 2019-06-13 09:36 | EKG ---
Test Date: 2019-06-12 Test Time: 12:20:08 Analog Ic Design Engineer: MICHAEL MEASUREMENT RESULTS: Intervals: Rate: 85 [place]: 140 QRSD: 82 QT: 366 QTc: 435 Tun[place]: P: 58 [place]: 140 QRS: 169 T: 43 INTERPRETIVE STATEMENTS: Normal sinus rhythm Right axis deviation Low voltage QRS Cannot rule out Anterior infarct, age undetermined Abnormal ECG Compared to ECG 12/24/2017 22:05:53 Low QRS voltage now present Myocardial infarct finding now present T-wave abnormality no longer present Electronically Signed On 06-13-19 09:35:39 POLITICAL SCIENCE FACULTY MEMBER by Rj Yates
== END 2019-06-12 16:33 | disposition home or self-care (01) ==
LOC: ER 12:07
DX: R10.2 Pelvic and perineal pain (principal); I10 Essential (primary) hypertension; Z88.8 Allergy status to other drugs, medicaments and biological substances; Z91.018 Allergy to other foods
CPT/HCPCS: 36415; 74177; 80048; 80076; 81003; 81025; 83605; 83690; 84145; 84484; 85025; 93005; 96361; 96374; 96375; 99285; J2405; J7030; Q9967

== ENCOUNTER 2019-10-12 11:16 | Emergency (ER) | payer SELFPAY, OTHER ==
--- OUTSIDE RECORDS SUMMARY | 2019-10-12 11:19 | XMS REPORT ---
:1970 [facility] Address [address] [place] [address] [place] [id number] Care Team Providers Name Role Phone Unavailable Unavailable Unavailable Problems This patient has no known problems. Allergies, Adverse Reactions, Alerts This patient has no known allergies or adverse reactions. Medications This patient has no known medications.
[2019-10-12] MEDS ORDERED: METHYLPREDNISOLONE 125 MG INJ ONE (12:07)
[2019-10-12] MEDS ORDERED: NA CHLORIDE 0.9% 500 ML ONE (12:07)
[2019-10-12] MEDS ORDERED: MAGNESIUM SULFATE 1 gm IVPB 1 GM/100 ML BAG IV ONE (12:08)
--- NOTE | 2019-10-12 12:08 | RAD REPORT ---
EXAM DESCRIPTION: Leno Single View10/12/2019 11:56 am CLINICAL HISTORY: Shortness of breath COMPARISON: 2017 FINDINGS: The lungs appear clear of acute infiltrate. The heart is normal size IMPRESSION: No acute abnormalities displayed
[2019-10-12 12:10] LABS: Absolute Lymphocytes (CBC) 2.6 K/uL (0.7-4.9); Basophils % 1.5 % (0-1.3); Hematocrit 40.1 % (36.0-45.0); Lymphocytes % 38.5 % (15.3-44.8); MPV 6.6 fL (7.6-11.3); RBC Red Blood Cell Count 4.99 M/uL (3.86-4.86)
[2019-10-12] MEDS ORDERED: ALBUTEROL INHALER 60 PUFF/8 GM IH ONE (12:15)
[2019-10-12 12:31] LABS: BUN Blood Urea Nitrogen 8 mg/dL (7-18); Bicarbonate 24 mmol/L (21-32); Glucose Level 97 mg/dL (74-106); NT PRO-BNP 371 pg/mL (<125); Potassium 3.8 mmol/L (3.5-5.1); Sodium Level 139 mmol/L (136-145); Troponin (Emerg Dept Use Only) < 0.02 ng/mL (0.0-0.045)
[2019-10-12] MEDS ORDERED: ONDANSETRON 4 MG/2 ML VIAL ONE (12:38)
--- NOTE | 2019-10-12 13:24 | EDPHYS ---
Physician Documentation [facility] Name: Heather Coon Age: 49 yrs Sex: Female : 1970 Arrival Date: 10/12/2019 Time: 11:18 Bed 7 Private MD: ED Physician Jones Parham HPI: 10/11 11:36 This 49 yrs old Female presents to ER via Unassigned with complaints of rn Breathing Difficulty, Headache, Chest Pain > 30 y/o. 11:36 The patient has shortness of breath at rest, with light activity. rn 11:37 Onset: The symptoms/episode began/occurred 2 day(s) ago. Duration: The symptoms are rn intermittent. The patient's shortness of breath is aggravated by exertion, light activity, talking. Associated signs and symptoms: Pertinent positives: chest pain, non-productive cough, Pertinent negatives: fever, hemoptysis, loss of consciousness, vomiting. Severity of symptoms: At their worst the symptoms were moderate in the emergency department the symptoms are unchanged. The patient has experienced similar episodes in the past. Reports COPD, has had cough and sob worsening over last couple of days, no fever, reports doesn't normally have to come in for respiratory problems. No known sick contacts. . 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 ca1 Historical: - Allergies: 12:48 Fluoxetine; ca1 12:48 Green Tea; ca1 12:48 Prozac; ca1 - Home Meds: 12:48 clindamycin HCl 300 mg Oral cap 1 cap every 6 hours [Active]; ibuprofen 600 mg Oral tab ca1 1 tab 4 times per day [Active]; unknown anticonvulsant [Active]; - PMHx: 12:48 Anxiety; Bipolar disorder; Chronic pain; Depression; Diverticulitis; Herniated Back ca1 Disc; Hypertension; Myocardial infarction; pt reports hx of seizures; Spastic Muscles; - PSHx: 12:48 Cholecystectomy; Carpal Tunnel Repair; neck fusion; right foot; ca1 - Immunization history:: Adult Immunizations up to date, Flu vaccine is not up to date. - Social history:: Smoking status: Patient reports the use of cigarette tobacco products, smokes one pack cigarettes per day. - Family history:: not pertinent. - Hospitalizations: : No recent hospitalization is reported. ROS: 11:37 Constitutional: Negative for fever, chills, and weight loss, Eyes: Negative for injury, rn pain, redness, and discharge, Neck: Negative for injury, pain, and swelling, Cardiovascular: + chest pain, neg for edema Respiratory: + sob and cough Abdomen/GI: Negative for abdominal pain, nausea, vomiting, diarrhea, and constipation, MS/Extremity: Negative for injury and deformity, Skin: Negative for injury, rash, and discoloration, Neuro: Negative for headache, weakness, numbness, tingling, and seizure. Exam: 11:37 Constitutional: This is a well developed, well nourished patient who is awake, alert, rn + moderate respiratory distress Head/Face: Normocephalic, atraumatic. ENT: dry MM, no stridor Cardiovascular: Regular rate and rhythm. No pulse deficits. Respiratory: Poor inspiratory air flow, + faint wheezing bilateral upper lungs, + moderate tachypnea Skin: Warm, dry MS/ Extremity: Pulses equal, no cyanosis. Neurovascular intact. Full, normal range of motion. Equal circumference. Neuro: Awake and alert, GCS 15 Vital Signs: 11:30 BP 155 / 107; Pulse 98; Resp 20 S; Temp 99(O); Pulse Ox 99% on R/A; Weight 70.31 kg ca1 (R); Height 5 ft. 3 in. (160.02 cm) (R); 12:35 BP 160 / 84; Pulse 84; Resp 24; Temp 98.4(O); Pulse Ox 99% on R/A; mh5 13:20 BP 146 / 83; Pulse 85; Resp 20; Temp 97.6(O); Pulse Ox 97% on R/A; mh5 11:30 Body Mass Index 27.46 (70.31 kg, 160.02 cm) ca1 MDM: 11:26 Patient medically screened. rn 13:12 Differential diagnosis: Chronic Obstructive Pulmonary Disease pneumonia, Pneumothorax rn reactive airway disease, Sepsis Flu, COVID-19. Data reviewed: vital signs, nurses notes, lab test result(s), EKG, radiologic studies, plain films, and as a result, I will discharge patient. Test interpretation: by ED physician or midlevel provider: plain radiologic studies, CXR neg for acute infiltrate. Counseling: I had a detailed discussion with the patient and/or guardian regarding: the historical points, exam findings, and any diagnostic results supporting the discharge/admit diagnosis, lab results, radiology results, the need for outpatient follow up, to return to the emergency department if symptoms worsen or persist or if there are any questions or concerns that arise at home. Response to treatment: the patient's symptoms have markedly improved after treatment, and as a result, I will discharge patient. Special discussion: I discussed with the patient/guardian in detail that at this point there is no indication for admission to the hospital. It is understood, however, that if the symptoms persist or worsen the patient needs to return immediately for re-evaluation. ED course: Pt improved markedly, will dc home as COPD exacerbation and Flu B. Submitted request to health department for COVID-19 testing and recommend self-quarantine. . 10/11 11:35 Order name: Blood Culture Adult (2) 10/11 11:35 Order name: BMP; Complete Time: 12:32 rn 10/11 11:35 Order name: CBC with Diff rn 10/11 11:35 Order name: NT PRO-BNP; Complete Time: 12:32 rn 10/11 11:35 Order name: Troponin (emerg Dept Use Only); Complete Time: 12:32 rn 10/11 11:35 Order name: Flu; Complete Time: 13:06 rn 10/11 11:35 Order name: XRAY CXR (1 view); Complete Time: 12:35 rn 10/11 11:36 Order name: Procalcitonin; Complete Time: 13:06 rn 10/11 11:36 Order name: Lactate; Complete Time: 12:32 rn 10/11 13:53 Order name: Misc. Lab Test iw 10/11 11:35 Order name: EKG; Complete Time: 11:37 rn 10/11 11:35 Order name: Cardiac monitoring; Complete Time: 12:24 rn 10/11 11:35 Order name: EKG - Nurse/Tech; Complete Time: 12:25 rn 10/11 11:35 Order name: IV Saline Lock; Complete Time: 12:25 rn 10/11 11:35 Order name: Labs collected and sent; Complete Time: 12:25 rn 10/11 11:35 Order name: O2 Per Protocol; Complete Time: 13:32 rn 10/11 11:35 Order name: O2 Sat Monitoring; Complete Time: 13:33 rn Administered Medications: 11:52 Drug: SOLU-Medrol 125 mg Route: IVP; Site: right antecubital; ca1 13:33 Follow up: Response: No adverse reaction; Marked relief of symptoms ca1 11:55 Drug: NS 0.9% 500 ml Route: IV; Rate: bolus; Site: right antecubital; ca1 12:00 Follow up: IV Status: Completed infusion ca1 12:00 Drug: Magnesium Sulfate 1 grams Route: IVPB; Infused Over: 1 hrs; Site: right ca1 antecubital; 13:00 Follow up: Response: No adverse reaction; Marked relief of symptoms; IV Status: ca1 Completed infusion 12:20 Drug: Albuterol HFA Inhaler 2 puffs Route: Inhalation; ca1 12:35 Drug: Zofran (Ondansetron) 4 mg Route: IVP; Site: right antecubital; ca1 13:32 Follow up: Response: No adverse reaction; Nausea is decreased ca1 Disposition: 10/12/19 13:22 Discharged to Home. Impression: Chronic obstructive pulmonary disease with (acute) exacerbation, Influenza due to other identified influenza virus. - Condition is Stable. - Discharge Instructions: Influenza, Adult, How to Use an Inhaler, Chronic Obstructive Pulmonary Disease Exacerbation. - Prescriptions for Zofran ODT 4 mg Oral tablet,disintegrating - place 1 tablet by TRANSLINGUAL route every 8 hours As needed; 15 tablet. Prednisone 20 mg Oral Tablet - take 3 tablet by ORAL route once daily for 5 days; 15 tablet. Tamiflu 75 mg Oral Capsule - take 1 capsule by ORAL route every 12 hours for 5 days; 10 capsule. - Medication Reconciliation Form, Thank You Letter, Antibiotic Education, Prescription Opioid Use form. - Follow up: Private Physician; When: As needed; Reason: Recheck today's complaints, Re-evaluation by your physician. - Problem is an acute exacerbation. - Symptoms have improved. Signatures: Dispatcher [employer] EDMS Jones Parham MD MD rn Leal, Jahala, RN RN [id number] Cheryl Gonzalez RN RN ca1 Corrections: (The following items were deleted from the chart) 14:25 13:22 10/12/2019 13:22 Discharged to Home. Impression: Chronic obstructive pulmonary jl7 disease with (acute) exacerbation; Influenza due to other identified influenza virus. Condition is Stable. Forms are Medication Reconciliation Form, Thank You Letter, Antibiotic Education, Prescription Opioid Use. Follow up: Private Physician; When: As needed; Reason: Recheck today's complaints, Re-evaluation by your physician. Problem is an acute exacerbation. Symptoms have improved. rn
--- NOTE | 2019-10-12 13:24 | ER ---
Nurse's Notes [facility] Name: Heather Coon Age: 49 yrs Sex: Female : 1970 Arrival Date: 10/12/2019 Time: 11:18 Bed 7 Private MD: Diagnosis: Chronic obstructive pulmonary disease with (acute) exacerbation;Influenza due to other identified influenza virus Presentation: 10/11 11:30 Chief complaint: Chief complaint: Patient states: cough and SOB since yesterday. ca1 Reports chills and sweats. 11:30 Coronavirus screen: Patient reports a subjective fever or greater than 100.4F, or ca1 cough, or shortness of breath, or difficulty breathing. Surgical mask placed on patient. Patient moved to private room, placed in contact and droplet isolation with eye protection until further assessment. Patient denies travel on a cruise ship or to a country the [facility] currently lists as an affected area. Patient denies contact with known and/or suspected case of COVID-19. Infection Prevention Nurse has been notified of patient in isolation for probable COVID-19. Ebola Screen: Patient negative for fever greater than or equal to 101.5 degrees Fahrenheit, and additional compatible Ebola Virus Disease symptoms Patient denies exposure to infectious person. Patient denies travel to an Ebola-affected area in the 21 days before illness onset. No symptoms or risks identified at this time. Initial Sepsis Screen: Does the patient meet any 2 criteria? No. Patient's initial sepsis screen is negative. Does the patient have a suspected source of infection? No. Patient's initial sepsis screen is negative. Risk Assessment: Do you want to hurt yourself or someone else? Patient reports no desire to harm self or others. Onset of symptoms was October 11, 2019. 11:30 Method Of Arrival: Wheelchair ca1 11:30 Acuity: ANDER 3 ca1 Triage Assessment: 11:30 General: Appears in no apparent distress. uncomfortable, Behavior is calm. Pain: ca1 Complains of pain in back. Respiratory: Reports shortness of breath Onset: The symptoms/episode began/occurred KNOCKER OUT: 12:48 LMP 10/11/2019 ca1 Historical: - Allergies: 12:48 Fluoxetine; ca1 12:48 Green Tea; ca1 12:48 Prozac; ca1 - Home Meds: 12:48 clindamycin HCl 300 mg Oral cap 1 cap every 6 hours [Active]; ibuprofen 600 mg Oral tab ca1 1 tab 4 times per day [Active]; unknown anticonvulsant [Active]; - PMHx: 12:48 Anxiety; Bipolar disorder; Chronic pain; Depression; Diverticulitis; Herniated Back ca1 Disc; Hypertension; Myocardial infarction; pt reports hx of seizures; Spastic Muscles; - PSHx: 12:48 Cholecystectomy; Carpal Tunnel Repair; neck fusion; right foot; ca1 - Immunization history:: Adult Immunizations up to date, Flu vaccine is not up to date. - Social history:: Smoking status: Patient reports the use of cigarette tobacco products, smokes one pack cigarettes per day. - Family history:: not pertinent. - Hospitalizations: : No recent hospitalization is reported. Screenin:40 Abuse screen: Denies threats or abuse. Denies injuries from another. Nutritional ca1 screening: No deficits noted. Tuberculosis screening: No symptoms or risk factors identified. Fall Risk Secondary diagnosis (15 points) seizures, IV access (20 points). Total Costello Fall Scale indicates Low Risk Score (25-44 pts). Fall prevention measures have been instituted. Side Rails Up X 2 As available Patient and Family Educated on Fall Prevention Program and strategies. Assessment: 11:40 General: Appears in no apparent distress. uncomfortable, Behavior is calm, cooperative, ca1 appropriate for age. Pain: Complains of pain in back. Neuro: Level of Consciousness is awake, alert, obeys commands, Oriented to person, place, time, situation, Appropriate for age. Cardiovascular: Heart tones S1 S2 present Capillary refill < 3 seconds Patient's skin is warm and dry. Rhythm is sinus rhythm. Respiratory: Reports shortness of breath cough that is Airway is patent Respiratory effort is even, unlabored, Respiratory pattern is regular, symmetrical, Breath sounds with wheezes bilaterally. GI: Abdomen is round non-distended, Bowel sounds present X 4 quads. Abd is soft and non tender X 4 quads. GI: Reports nausea. : No signs and/or symptoms were reported regarding the genitourinary system. EENT: No signs and/or symptoms were reported regarding the EENT system. Derm: Skin is intact, is healthy with good turgor, Skin is pink, warm \T\ dry. Musculoskeletal: Circulation, motion, and sensation intact. Capillary refill < 3 seconds. 12:50 Reassessment: Patient appears in no apparent distress at this time. Patient and/or ca1 family updated on plan of care and expected duration. Pain level reassessed. Patient is alert, oriented x 3, equal unlabored respirations, skin warm/dry/pink. Patient states feeling better. 13:50 Reassessment: Patient appears in no apparent distress at this time. Patient is alert, ca1 oriented x 3, equal unlabored respirations, skin warm/dry/pink. 14:00 Reassessment: Received PUI # [id number], from Sabrina at [facility], called Freida in lab iw with number. Vital Signs: 11:30 BP 155 / 107; Pulse 98; Resp 20 S; Temp 99(O); Pulse Ox 99% on R/A; Weight 70.31 kg ca1 (R); Height 5 ft. 3 in. (160.02 cm) (R); 12:35 BP 160 / 84; Pulse 84; Resp 24; Temp 98.4(O); Pulse Ox 99% on R/A; mh5 13:20 BP 146 / 83; Pulse 85; Resp 20; Temp 97.6(O); Pulse Ox 97% on R/A; mh5 11:30 Body Mass Index 27.46 (70.31 kg, 160.02 cm) ca1 ED Course: 11:18 Patient arrived in ED. fj1 11:26 Jones Parham MD is Attending Physician. rn 11:30 Arm band placed on right wrist. ca1 11:50 Inserted saline lock: 20 gauge in right antecubital area, using aseptic technique. ca1 Blood collected. 11:50 No provider procedures requiring assistance completed. Initial lab(s) drawn, by me, ca1 sent to lab. First set of blood cultures drawn by me. 12:05 Second set of blood cultures drawn by me. ca1 12:06 XRAY CXR (1 view) In Process Unspecified. EDMS 12:25 Troponin (emerg Dept Use Only) Sent. ca1 12:25 NT PRO-BNP Sent. ca1 12:25 Procalcitonin Sent. ca1 12:25 Lactate Sent. ca1 12:25 Flu Sent. ca1 12:35 Patient has correct armband on for positive identification. Placed in gown. Bed in low mh5 position. Call light in reach. Warm blanket given. property assessment monitor on. Pulse ox on. NIBP on. 12:43 Acob, , RN is Primary Nurse. ca1 12:47 Triage completed. ca1 14:23 IV discontinued, intact, bleeding controlled, No redness/swelling at site. Pressure jl7 dressing applied. 14:25 COVID-19 swab sent to lab. jl7 Administered Medications: 11:52 Drug: SOLU-Medrol 125 mg Route: IVP; Site: right antecubital; ca1 13:33 Follow up: Response: No adverse reaction; Marked relief of symptoms ca1 11:55 Drug: NS 0.9% 500 ml Route: IV; Rate: bolus; Site: right antecubital; ca1 12:00 Follow up: IV Status: Completed infusion ca1 12:00 Drug: Magnesium Sulfate 1 grams Route: IVPB; Infused Over: 1 hrs; Site: right ca1 antecubital; 13:00 Follow up: Response: No adverse reaction; Marked relief of symptoms; IV Status: ca1 Completed infusion 12:20 Drug: Albuterol HFA Inhaler 2 puffs Route: Inhalation; ca1 12:35 Drug: Zofran (Ondansetron) 4 mg Route: IVP; Site: right antecubital; ca1 13:32 Follow up: Response: No adverse reaction; Nausea is decreased ca1 Outcome: 13:22 Discharge ordered by . rn 14:23 Discharged to home ambulatory. jlMilo 14:23 Condition: stable 14:23 Discharge instructions given to patient, Instructed on discharge instructions, follow up and referral plans. medication usage, Demonstrated understanding of instructions, follow-up care, medications, Prescriptions given X 3. 14:25 Patient left the ED. jl7 Addendum: 10/13/2019 18:39 Addendum: Addendum: Other notified patient of negative COVID-19 swab results. Advised d m5 pt to continue to monitor symptoms and to return if symptoms worsened. Advised pt she could be removed from isolation once she was symptom free for 24 hours. Signatures: Dispatcher [employer] EDME Karla Anderson RN RN dm5 Williams, Irene, RN RN iw Nieto, Roman, MD MD rn Martinez, Maria mh5 Leal, Jahala, RN RN jl7 Acob, Cheryl, RN RN ca1 Bo Soni fj1 Corrections: (The following items were deleted from the chart) 10/11 12:47 12:45 Chief complaint: ca1 ca1 12:53 12:48 Arm band placed on right wrist. ca1 ca1 13:22 13:20 BP 146 / 83; Pulse 85bpm; Resp 20bpm; Pulse Ox 97% RA; [place] [id number] 10/12 18:37 18:35 Addendum: dm5 dm5 18:41 18:35 Addendum: dm5 dm5
[2019-10-12 14:44] VITALS: BP 146/83; TEMP 97.6; O2SAT 97
--- NOTE | 2019-10-13 10:05 | EKG ---
Test Date: 2019-10-12 Test Time: 12:13:08 Monument Setter: RACHELLE MEASUREMENT RESULTS: Intervals: Rate: 79 MS: 124 QRSD: 84 QT: 396 QTc: 454 [place]tertail: P: 21 MS: 124 QRS: 108 T: 56 INTERPRETIVE STATEMENTS: Normal sinus rhythm Rightward axis Low voltage QRS Borderline ECG Compared to ECG 06/12/2019 12:20:08 Myocardial infarct finding no longer present Electronically Signed On 10-13-19 10:02:59 CDT by Migel Warren
== END 2019-10-12 14:25 | disposition home or self-care (01) ==
LOC: ER 11:16
DX: J44.1 Chronic obstructive pulmonary disease with (acute) exacerbation (principal); J10.1 Influenza due to other identified influenza virus with other respiratory manifestations; Z03.818 Encounter for observation for suspected exposure to other biological agents ruled out; F17.210 Nicotine dependence, cigarettes, uncomplicated; I10 Essential (primary) hypertension; F31.9 Bipolar disorder, unspecified; I25.2 Old myocardial infarction; Z88.5 Allergy status to narcotic agent; Z91.018 Allergy to other foods
CPT/HCPCS: 36415; 71045; 80048; 83605; 83880; 84145; 84484; 85025; 87040; 87804; 93005; 96365; 96375; 99285; J2405; J2930; J3475; J7040; U0001

== ENCOUNTER 2019-12-09 16:04 | Inpatient (IN) | payer OTHER ==
--- OUTSIDE RECORDS SUMMARY | 2019-12-09 16:06 | XMS REPORT ---
:1970 Author Organization [facility] t Address [address] [place] [address] Care Team Providers Name Role Phone Dima Arcos MD Attending Clinician Problems This patient has no known problems. Allergies, Adverse Reactions, Alerts This patient has no known allergies or adverse reactions. Medications This patient has no known medications. Procedures This patient has no known procedures. Encounters Start End Encounter Admission Attending Care Care Encounter Source Date/Time Date/Time Type Type Clinicians Facility Department ID 2019-03-09 2019-03-09 LEIGH Zimmerman [id number] 00:00:00 00:00:00 Yehuda Harrell [id number] Shonna [id number] Niko [id number] nal 092 Building Results This patient has no known results.
[2019-12-09 16:46] LABS: Absolute Lymphocytes (CBC) 2.7 K/uL (0.7-4.9); Lymphocytes % 20.5 % (15.3-44.8); MPV 6.6 fL (7.6-11.3); RBC Red Blood Cell Count 4.62 M/uL (3.86-4.86)
[2019-12-09] MEDS ORDERED: NA CHLORIDE 0.9% 1,000 ML ONE (16:55)
[2019-12-09] MEDS ORDERED: ONDANSETRON 4 MG/2 ML VIAL ONE (16:55)
[2019-12-09] MEDS ORDERED: MORPHINE 4 MG/ML SYR ONE ×2 (16:55→18:23)
[2019-12-09 17:02] LABS: ALT/SGPT 12 U/L (12-78); AST/SGOT 7 U/L (15-37); Albumin 3.4 g/dL (3.4-5.0); Alkaline Phosphatase 71 U/L (45-117); BUN Blood Urea Nitrogen 7 mg/dL (7-18); Bicarbonate 26 mmol/L (21-32); Bilirubin Direct < 0.1 mg/dL (0-0.2); Bilirubin Total 0.2 mg/dL (0.2-1.0); Glucose Level 89 mg/dL (74-106); Lipase 439 U/L (73-393); Potassium 3.8 mmol/L (3.5-5.1); Protein, Total 7.1 g/dL (6.4-8.2); Sodium Level 139 mmol/L (136-145)
--- NOTE | 2019-12-09 17:49 | RAD REPORT ---
EXAM DESCRIPTION: CT - Abdomen Pelvis W Contrast - 12/09/2019 5:27 pm CLINICAL HISTORY: ABD PAIN COMPARISON: Abdomen Pelvis W Contrast dated 06/12/2019; Abdomen Pelvis W Contrast dated 12/24/2017 TECHNIQUE: Biphasic, helical CT imaging of the abdomen and pelvis was performed following 100 ml non -ionic IV contrast. No oral contrast administered. All CT scans are performed using dose optimization technique as appropriate and may include automated exposure control or mA/KV adjustment according to patient size. FINDINGS: No suspicious findings in the lung bases. The liver, spleen, and pancreas show no suspicious findings. Gallbladder is absent. No abnormal bilia ry tree dilatation. Symmetric renal function is seen with no hydronephrosis or suspicious renal mass. No pyelonephritis o r acute parenchymal process. No bladder abnormalities. No right adrenal abnormality. A 3.3 centimeter left adrenal mass is not clearly different going back to at least 2017. Urinary bladder is only part ially filled. Uterus and left ovary show no suspicious findings. Right ovary contains a 2 centimeter cyst. Ovaries and adnexa are not grossly changed from prior imaging. No gastric dilatation or wall thickening. Several prominent but nondilated small bowel loops are pres ent. Moderate stool volume in the colon. Sigmoid colon is tortuous and redundant. Moderate diverticul osis is present. There is wall thickening in the midportion of the sigmoid colon with mild stranding or edema in the adjacent fat. Mass and diverticulosis are both possible. Given the history, mild dive rticulitis is favored. No free air or pneumatosis. No free fluid. No other area of inflammatory stranding. No hernia, mas s or bulky lymphadenopathy. Patient has advanced degenerative change at the L4-5 disc level with prominent disc herniation and ce ntral spinal stenosis. Findings are not substantially different from prior imaging in May 2019. IMPRESSION: Mild sigmoid diverticulitis changes are present. Sigmoid mass is unlikely but not entire ly excluded. Several mildly prominent small bowel loops are present. A concurrent small bowel enteritis is not exc luded. No abscess, free air or surgically emergent finding. Additional nonacute findings detailed in the carolynn dy of the report.
[2019-12-09 17:59] LABS: Urine Blood 1+ (NEG); Urine Glucose NEGATIVE (NEG); Urine Protein NEGATIVE (NEG); Urine Specific Gravity 1.015 (1.005-1.030)
--- NOTE | 2019-12-09 18:06 | ER ---
Nurse's Notes [facility] Name: Heather Coon Age: 49 yrs Sex: Female : 1970 Arrival Date: 12/09/2019 Time: 16:07 Bed 15 Private MD: Diagnosis: Diverticulitis of large intestine without perforation or abscess without bleeding Presentation: 12/08 16:08 Chief complaint: Patient states: " I have a history of diverticulitis, I end up waiting vc until the pain gets bad and then I come in and end up getting admitted." EMS states: "Patient states she has diverticulitis and she has been nauseous and vomiting all day.". Coronavirus screen: Proceed with normal triage. Patient denies a cough. Patient denies shortness of breath or difficulty breathing. Patient denies measured and/or subjective temperature greater than 100.4F prior to today's visit. Patient denies travel on a cruise ship or to a country the [facility] currently lists as an affected area. Patient denies contact with known and/or suspected case of COVID-19. Ebola Screen: No symptoms or risks identified at this time. Initial Sepsis Screen:. Onset of symptoms was December 09, 2019. 16:08 Method Of Arrival: EMS: [facility] vc 16:08 Acuity: ANDER 3 vc 16:31 Initial Sepsis Screen: Does the patient meet any 2 criteria? No. Patient's initial vc sepsis screen is negative. Does the patient have a suspected source of infection? No. Patient's initial sepsis screen is negative. Risk Assessment: Do you want to hurt yourself or someone else? Patient reports no desire to harm self or others. Triage Assessment: 16:29 General: Appears in no apparent distress. uncomfortable, ill, Behavior is calm, vc cooperative, appropriate for age. Pain: Complains of pain in right lower quadrant and left lower quadrant Pain currently is 10 out of 10 on a pain scale. Quality of pain is described as sharp, shooting, stabbing, Pain began gradually, Is continuous. 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: 16:21 LMP 12/03/2019 vc Historical: - Allergies: 16:16 Prozac; vc 16:16 Fluoxetine; vc 16:16 Green Tea; vc - Home Meds: 16:16 lisinopril-hydrochlorothiazide 20-12.5 mg Oral tab 1 tab once daily [Active]; vc metoprolol tartrate Oral [Active]; penicillin V potassium Oral [Active]; - PMHx: 16:20 Anxiety; Bipolar disorder; Depression; Chronic pain; Diverticulitis; Herniated Back vc Disc; Hypertension; Myocardial infarction; pt reports hx of seizures; Spastic Muscles; - PSHx: 16:20 Cholecystectomy; Carpal Tunnel Repair; neck fusion; vc - Immunization history:: Adult Immunizations up to date, Pneumococcal vaccine is up to date, Flu vaccine is not up to date. - Social history:: Smoking status: Patient reports the use of cigarette tobacco products, smokes one pack cigarettes per day. Screenin:28 Abuse screen: Denies threats or abuse. Nutritional screening: No deficits noted. vc Tuberculosis screening: No symptoms or risk factors identified. Fall Risk None identified. Assessment: 16:32 General: Appears in no apparent distress. uncomfortable, ill, Behavior is calm, vc cooperative, appropriate for age. Pain: Complains of pain in right lower quadrant and left lower quadrant. Cardiovascular: Capillary refill < 3 seconds Patient's skin is warm and dry. Respiratory: Airway is patent Respiratory effort is even, unlabored, Respiratory pattern is regular, symmetrical. GI: No signs and/or symptoms were reported involving the gastrointestinal system. GI: Patient dry heaving in room, no expelling of vomit noted. Reports nausea, vomiting, since waking up today. : No signs and/or symptoms were reported regarding the genitourinary system. EENT: No signs and/or symptoms were reported regarding the EENT system. Derm: Skin temperature is warm. Musculoskeletal: Circulation, motion, and sensation intact. Range of motion: intact in all extremities. 17:30 Reassessment: Patient appears in no apparent distress at this time. Patient and/or vc family updated on plan of care and expected duration. Pain level reassessed. Patient is alert, oriented x 3, equal unlabored respirations, skin warm/dry/pink. 18:30 Reassessment: Patient appears in no apparent distress at this time. Patient and/or vc family updated on plan of care and expected duration. Pain level reassessed. Patient is alert, oriented x 3, equal unlabored respirations, skin warm/dry/pink. 19:30 Reassessment: Patient appears in no apparent distress at this time. Patient and/or vc family updated on plan of care and expected duration. Pain level reassessed. Patient is alert, oriented x 3, equal unlabored respirations, skin warm/dry/pink. Patient states symptoms have improved. Vital Signs: 16:21 BP 134 / 91; Pulse 109; Resp 18; Temp 99.2(TE); Pulse Ox 99% on R/A; Weight 63.5 kg; vc Height 5 ft. 3 in. (160.02 cm); Pain 10/10; 17:30 BP 138 / 79; Pulse 92; Resp 18; Pulse Ox 98% on R/A; vc 19:30 BP 141 / 96; Pulse 86; Resp 18; Temp 99.1; Pulse Ox 98% on R/A; vc 16:21 Body Mass Index 24.80 (63.50 kg, 160.02 cm) vc ED Course: 16:07 Patient arrived in ED. vc 16:11 Triage completed. vc 16:15 [facility] jr8 16:15 Fazal Frey MD is Attending Physician. jr8 16:23 by ny, held in ED. Inserted saline lock: 20 gauge in right wrist, using aseptic jp3 technique. Blood collected. Patient maintains SpO2 saturation greater than 95% on room air. 16:26 Patient has correct armband on for positive identification. Bed in low position. Call jp3 light in reach. Side rails up X 1. Side rails up X2. Warm blanket given. Oral care given. Verbal reassurance given. Pulse ox on. NIBP on. 16:28 Deepali Curry, RN is Primary Nurse. vc 16:32 Initial lab(s) drawn, sent to lab. jp3 16:32 Arm band placed on. vc 17:27 CT Abd/Pelvis - IV Contrast Only In Process Unspecified. EDMS 18:05 Deandre Moore MD is Hospitalizing Provider. jr8 20:15 No provider procedures requiring assistance completed. Patient admitted, IV remains in vc place. Administered Medications: 16:56 Drug: morphine 4 mg Route: IVP; Site: right wrist; vc 19:51 Follow up: Response: No adverse reaction vc 16:57 Drug: NS 0.9% 1000 ml Route: IV; Rate: 1000 ml; Site: right wrist; vc 19:47 Follow up: IV Status: Completed infusion; IV Intake: 1000ml vc 16:57 Drug: Zofran (Ondansetron) 4 mg Route: IVP; Site: right wrist; vc 19:52 Follow up: Response: No adverse reaction vc 18:39 Drug: morphine 4 mg Route: IVP; Site: right wrist; vc 19:42 Follow up: Response: No adverse reaction vc 19:05 Drug: Cipro 400 mg Volume: 200 ml; Route: IVPB; Infused Over: 60 mins; Site: right vc wrist; 19:50 Follow up: IV Status: Infusion continued upon admission vc 19:05 Drug: Flagyl 500 mg Volume: 100 ml; Route: IVPB; Rate: 200 ml/hr; Infused Over: 30 vc mins; Site: right wrist; 19:47 Follow up: IV Status: Completed infusion; IV Intake: 100ml vc Intake: 19:47 IV: 100ml; Total: 100ml. vc 19:47 IV: 1000ml; Total: 1100ml. vc Outcome: 18:06 Decision to Hospitalize by Provider. deepti 20:15 Admitted to Med/surg accompanied by tech, via wheelchair, room 206, Report called to vc Jeffrey RN 20:15 Condition: good 20:15 Instructed on the need for admit, medication usage. vc 20:19 Patient left the ED. Signatures: Dispatcher [employer] EDMS Alberto Marie PA PA jr8 Lui Villar jp3 Deepali Curry RN RN vc
--- NOTE | 2019-12-09 18:07 | EDPHYS ---
Physician Documentation [facility] Name: Heather Coon Age: 49 yrs Sex: Female : 1970 Arrival Date: 12/09/2019 Time: 16:07 Bed 15 Private MD: ED Physician Fazal Frey HPI: 12/08 16:28 This 49 yrs old Female presents to ER via EMS with complaints of abdominal jr8 pain and vomiting. 16:28 The patient presents with abdominal pain in the lower abdomen. Onset: The jr8 symptoms/episode began/occurred acutely, today. The symptoms do not radiate. Associated signs and symptoms: Pertinent positives: nausea and vomiting, constipation. The symptoms are described as stabbing. Modifying factors: The symptoms are alleviated by nothing, the symptoms are aggravated by movement. Severity of pain: At its worst the pain was moderate in the emergency department the pain is unchanged. It is unknown whether or not the patient has had similar symptoms in the past. The patient has not recently seen a physician. 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/LANGUAGE THERAPIST: 16:21 LMP 12/03/2019 vc Historical: - Allergies: 16:16 Prozac; vc 16:16 Fluoxetine; vc 16:16 Green Tea; vc - Home Meds: 16:16 lisinopril-hydrochlorothiazide 20-12.5 mg Oral tab 1 tab once daily [Active]; vc metoprolol tartrate Oral [Active]; penicillin V potassium Oral [Active]; - PMHx: 16:20 Anxiety; Bipolar disorder; Depression; Chronic pain; Diverticulitis; Herniated Back vc Disc; Hypertension; Myocardial infarction; pt reports hx of seizures; Spastic Muscles; - PSHx: 16:20 Cholecystectomy; Carpal Tunnel Repair; neck fusion; vc - Immunization history:: Adult Immunizations up to date, Pneumococcal vaccine is up to date, Flu vaccine is not up to date. - Social history:: Smoking status: Patient reports the use of cigarette tobacco products, smokes one pack cigarettes per day. ROS: 16:28 Eyes: Negative for injury, pain, redness, and discharge, ENT: Negative for injury, jr8 pain, and discharge, Neck: Negative for injury, pain, and swelling, Cardiovascular: Negative for chest pain, palpitations, and edema, Respiratory: Negative for shortness of breath, cough, wheezing, and pleuritic chest pain, Back: Negative for injury and pain, MS/Extremity: Negative for injury and deformity, Skin: Negative for injury, rash, and discoloration, Neuro: Negative for headache, weakness, numbness, tingling, and seizure. 16:28 Abdomen/GI: Positive for abdominal pain, nausea and vomiting, Negative for diarrhea, abdominal distension, anorexia, dysphagia, hematemesis, black/tarry stool, rectal pain, rectal bleeding, bowel incontinence, flatulence. Exam: 16:28 Eyes: Pupils equal round and reactive to light, extra-ocular motions intact. Lids and jr8 lashes normal. Conjunctiva and sclera are non-icteric and not injected. Cornea within normal limits. Periorbital areas with no swelling, redness, or edema. ENT: Nares patent. No nasal discharge, no septal abnormalities noted. Tympanic membranes are normal and external auditory canals are clear. Oropharynx with no redness, swelling, or masses, exudates, or evidence of obstruction, uvula midline. Mucous membranes moist. Neck: Trachea midline, no thyromegaly or masses palpated, and no cervical lymphadenopathy. Supple, full range of motion without nuchal rigidity, or vertebral point tenderness. No Meningismus. Cardiovascular: Regular rate and rhythm with a normal S1 and S2. No gallops, murmurs, or rubs. Normal PMI, no JVD. No pulse deficits. Respiratory: Lungs have equal breath sounds bilaterally, clear to auscultation and percussion. No rales, rhonchi or wheezes noted. No increased work of breathing, no retractions or nasal flaring. Back: No spinal tenderness. No costovertebral tenderness. Full range of motion. Skin: Warm, dry with normal turgor. Normal color with no rashes, no lesions, and no evidence of cellulitis. MS/ Extremity: Pulses equal, no cyanosis. Neurovascular intact. Full, normal range of motion. Neuro: Awake and alert, GCS 15, oriented to person, place, time, and situation. Cranial nerves II-XII grossly intact. Motor strength 5/5 in all extremities. Sensory grossly intact. Cerebellar exam normal. Normal gait. 16:28 Abdomen/GI: Inspection: obese Bowel sounds: active, all quadrants, Palpation: soft, in all quadrants, mild abdominal tenderness, in the right lower quadrant, moderate abdominal tenderness, in the left lower quadrant, mass, is not appreciated, rebound tenderness, is not appreciated, voluntary guarding, is not appreciated, involuntary guarding, is not appreciated, no appreciated organomegaly, Indicators: McBurney's point is not tender, Zapata's sign is negative, Rovsing's sign is negative, Liver: tenderness, is not appreciated. Vital Signs: 16:21 BP 134 / 91; Pulse 109; Resp 18; Temp 99.2(TE); Pulse Ox 99% on R/A; Weight 63.5 kg; vc Height 5 ft. 3 in. (160.02 cm); Pain 10/10; 17:30 BP 138 / 79; Pulse 92; Resp 18; Pulse Ox 98% on R/A; vc 19:30 BP 141 / 96; Pulse 86; Resp 18; Temp 99.1; Pulse Ox 98% on R/A; vc 16:21 Body Mass Index 24.80 (63.50 kg, 160.02 cm) vc MDM: 16:24 Patient medically screened. jr8 18:04 Data reviewed: vital signs, nurses notes, lab test result(s), radiologic studies, CT jr8 scan, and as a result, I will admit patient. Data interpreted: Pulse oximetry: on room air is 99 %. Interpretation: normal. Counseling: I had a detailed discussion with the patient and/or guardian regarding: the historical points, exam findings, and any diagnostic results supporting the discharge/admit diagnosis, lab results, radiology results, the need for further work-up and treatment in the hospital. ED course: Patient still in moderate pain. Still tachycardic with low grade fever and WBC elevation. Will admit for diverticulitis with intractable pain . 12/08 16:28 Order name: Basic Metabolic Panel; Complete Time: 17:17 jr8 12/08 16:28 Order name: CBC with Diff; Complete Time: 16:58 12/08 16:28 Order name: Hepatic Function; Complete Time: 17:17 8 12/08 16:28 Order name: Lipase; Complete Time: 17:17 8 12/08 17:26 Order name: Urine --Ancillary (enter results); Complete Time: 18:01 tt3 12/08 17:26 Order name: Urine Dipstick--Ancillary (enter results); Complete Time: 18:01 tt3 12/08 16:59 Order name: CT Abd/Pelvis - IV Contrast Only; Complete Time: 18:01 jr8 12/08 18:16 Order name: Basic Metabolic Panel EDMS 12/08 18:16 Order name: Basic Metabolic Panel EDMS 12/08 18:16 Order name: CBC with Automated Diff EDMS 12/08 18:16 Order name: CBC with Automated Diff EDMS 12/08 16:28 Order name: IV Saline Lock; Complete Time: 16:32 8 12/08 16:28 Order name: Labs collected and sent; Complete Time: 16:32 8 12/08 18:16 Order name: CONS Pharmacy Consult EDMS 12/08 18:16 Order name: CONS Physician Consult EDMS 12/08 18:16 Order name: NPO EDMS Administered Medications: 16:56 Drug: morphine 4 mg Route: IVP; Site: right wrist; vc 19:51 Follow up: Response: No adverse reaction vc 16:57 Drug: NS 0.9% 1000 ml Route: IV; Rate: 1000 ml; Site: right wrist; vc 19:47 Follow up: IV Status: Completed infusion; IV Intake: 1000ml vc 16:57 Drug: Zofran (Ondansetron) 4 mg Route: IVP; Site: right wrist; vc 19:52 Follow up: Response: No adverse reaction vc 18:39 Drug: morphine 4 mg Route: IVP; Site: right wrist; vc 19:42 Follow up: Response: No adverse reaction vc 19:05 Drug: Cipro 400 mg Volume: 200 ml; Route: IVPB; Infused Over: 60 mins; Site: right vc wrist; 19:50 Follow up: IV Status: Infusion continued upon admission vc 19:05 Drug: Flagyl 500 mg Volume: 100 ml; Route: IVPB; Rate: 200 ml/hr; Infused Over: 30 vc mins; Site: right wrist; 19:47 Follow up: IV Status: Completed infusion; IV Intake: 100ml vc Disposition: 12/09 19:41 Co-signature as Attending Physician, Fazal Frey MD. [email or web address] Disposition: 12/09/19 18:06 Hospitalization ordered by Deandre Moore for Inpatient Admission. Preliminary diagnosis is Diverticulitis of large intestine without perforation or abscess without bleeding. - Bed requested for Telemetry/MedSurg (Inpatient). - Status is Inpatient Admission. vc - Condition is Stable. - Problem is new. - Symptoms are unchanged. Signatures: Dispatcher [employer] EDMS Aicha Vera RN RN Alberto Davis PA PA jr8 Deepali Curry RN RN vc Fazal Frey MD MD [email or web address] Corrections: (The following items were deleted from the chart) 12/08 19: 18:06 Hospitalization Ordered by Deandre Moore MD for Inpatient Admission. jeison Preliminary diagnosis is Diverticulitis of large intestine without perforation or abscess without bleeding. Bed requested for Telemetry/MedSurg (Inpatient). Status is Inpatient Admission. Condition is Stable. Problem is new. Symptoms are unchanged. jr8 20:19 19:31 12/09/2019 18:06 Hospitalization Ordered by Deandre Moore MD for Inpatient vc Admission. Preliminary diagnosis is Diverticulitis of large intestine without perforation or abscess without bleeding. Bed requested for Telemetry/MedSurg (Inpatient). Status is Inpatient Admission. Condition is Stable. Problem is new. Symptoms are unchanged. jeison
[2019-12-09] MEDS ORDERED: MORPHINE 2 MG/ML SYR IV PRN (18:10)
--- NOTE | 2019-12-09 18:20 | P.HP ---
Certification for Inpatient Patient admitted to: Inpatient With expected LOS: >2 Midnights Practitioner: I am a practitioner with admitting privileges, knowledge of patient current condition, hospital course, and medical plan of care. Services: Services provided to patient in accordance with Admission requirements found in Title 42 Section 412.3 of the Code of Federal Regulations Patient History Date of Service: 12/09/19 Reason for admission: diverticulitis History of Present Illness: Pt is 49 yrs of age AW abdominal pain N&V patient has some intermittent pain for the past couple of days became worse at 2:30 a.m. in the morning became really intense patient was writhing in pain when he came to see her despite getting a dose of morphine very upset and weeping Allergies fluoxetine HCl [From Prozac] Allergy (Mild, Verified 12/25/17 01:35) Hives/Rash Green tea Allergy (Unknown, Uncoded 12/25/17 01:36) Hives/Rash Home Medications: Levofloxacin [Levaquin] 500 mg PO DAILY #14 tablet 12/25/17 metroNIDAZOLE [Flagyl] 500 mg PO Q8H #21 tablet 12/25/17 - Past Medical/Surgical History Diabetic: No -: COPD -: HTN -: migraines -: depression -: anxiety -: OCD -: Insomnia -: Pancreatitis -: CAD -: Diverticulitis -: Herniated back disc -: Seizures HX of -: 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 -: cholecystectomy -: 5 hand surgeries -: tonsilectomy - Family History Mother -: Heart disease, Hypertension, GI disease, Diabetes, Liver disease, Kidney disease - Social History Alcohol use: Yes CD- Drugs: Yes Caffeine use: Yes Review of Systems 10-point ROS is otherwise unremarkable Physical Examination - Vital Signs Temperature: 99.2 F Blood Pressure: 134/91 Pulse: 109 Respirations: 18 Pulse Ox (%): 99 (RA) - Physical Exam General: Alert, Moderate distress Neck: Supple, Other Cardiovascular: No edema, Regular rate/rhythm, Normal S1 S2 Gastrointestinal: Normal bowel sounds, Tenderness (Tenderness and rebound guarding on the left lower quadrant) Musculoskeletal: No clubbing, No erythema, No tenderness - Studies Laboratory Data (last 24 hrs) 12/09/19 16:24: WBC 13.1 H, Hgb 11.9 L, Hct 37.0, Plt Count 444 H 12/09/19 16:24: Sodium 139, Potassium 3.8, BUN 7, Creatinine 0.72, Glucose 89, Total Bilirubin 0.2, AST 7 L, ALT 12, Alkaline Phosphatase 71, Lipase 439 H Assessment and Plan - Problems (Diagnosis) (1) Diverticula of colon Current Visit: Yes Status: Acute Plan: Age 46 AW sigmoid diverticultis. WBC mild elevated. Albs rev. Tx with Levaquin and Flagyl. NPO, IVF, general surgery consult patient is significant amount of pain admit for pain relief IV fluid Discharge Plan: Home Plan to discharge in: 48 Hours - Advance Directives Does patient have a Living Will: No Does patient have a Durable POA for Healthcare: No
[2019-12-09] MEDS ORDERED: CIPROFLOXACIN 400mg IV 400 MG/200 ML BAG IV ONE (18:23)
[2019-12-09] MEDS ORDERED: Levofloxacin500mg IV 500 MG/100 ML BAG IV SCH (18:30)
[2019-12-09] MEDS: METRONIDAZOLE 500mg IVPB 500 MG/100 ML BAG IV SCH (18:30)
[2019-12-09] MEDS: D5 0.45 NS 1,000 ML IV SCH (20:38)
[2019-12-09] MEDS: ENOXAPARIN 40 MG/0.4 ML SQ SCH (20:40)
[2019-12-09] MEDS: ONDANSETRON 4 MG/2 ML VIAL IV PRN (22:32)
[2019-12-09] MEDS: MORPHINE 4 MG/ML SYR IV PRN (22:32)
[2019-12-10] MEDS ORDERED: Levofloxacin500mg IV 500 MG/100 ML BAG IV SCH
[2019-12-10] MEDS ORDERED: METRONIDAZOLE 500 MG IV SCH
[2019-12-10] MEDS: METRONIDAZOLE 500mg IVPB 500 MG/100 ML BAG IV SCH ×4 (00:11→17:32)
[2019-12-10 00:58] VITALS: BMI 24.7
[2019-12-10] MEDS: MORPHINE 4 MG/ML SYR IV PRN ×4 (02:17→14:03)
[2019-12-10] MEDS: D5 0.45 NS 1,000 ML IV SCH (05:21)
[2019-12-10] MEDS: ONDANSETRON 4 MG/2 ML VIAL IV PRN ×2 (05:59→14:03)
[2019-12-10 06:24] LABS: Absolute Lymphocytes (CBC) 2.8 K/uL (0.7-4.9); Basophils % 0.7 % (0-1.3); Hematocrit 33.6 % (36.0-45.0); Lymphocytes % 31.9 % (15.3-44.8); MPV 6.6 fL (7.6-11.3); RBC Red Blood Cell Count 4.15 M/uL (3.86-4.86)
[2019-12-10 06:33] LABS: Potassium 3.7 mmol/L (3.5-5.1)
[2019-12-10] MEDS ORDERED: ALBUTEROL INHALER 60 PUFF/8 GM IH PRN (07:49)
[2019-12-10] MEDS ORDERED: HYDRALAZINE HCL 20 MG/ML VIAL IV PRN (07:50)
[2019-12-10] MEDS ORDERED: FAMOTIDINE 20 MG/2 ML VIAL IV SCH (09:00)
[2019-12-10] MEDS ORDERED: NICOTINE 21 MG/PAT TD SCH (09:00)
[2019-12-10] MEDS ORDERED: DULERA 100/5 (MOMETASONE/FORMOTEROL) INHALER IH SCH (09:00)
--- NOTE | 2019-12-10 09:13 | CON ---
Date of Consultation: 12/10/2019 Brief History Of Present Illness: Patient is a 49-year-old female who presents to the [facility] with a 5-year history of intermittent episodes of diverticulitis in the sigmoid colon. She stat es that she knows that certain foods she eats certain time of day or certain meal types will cause an exacerbation of her symptoms. She has never had a colonoscopy as she did not have insurance for man y years and states she only recently acquired insurance, but has had diverticulitis episodes multiple times over the past 5 years. She states that on this particular episode, her symptoms began yesterd ay and progressively got significantly worse focally in the left lower quadrant predominantly similar to episodes before in the past with higher intensity. It was associated with some nausea. No speci fic vomiting. She has chronic intermittent diarrhea, constipation. She has had no sick contacts. S he has had night sweats and cold chills by her description. She had no other aggravating or alleviat ing factors. No sick contacts. No recent travel. No COVID exposures by her report. She feels sign ificantly better after being brought to the hospital and given pain medication, but her symptoms have not completely resolved at this point. Past Medical History: Significant for COPD, hypertension, migraine, epilepsy, depression, anxiety, O CD, insomnia, pancreatitis, coronary artery disease, diverticulitis, herniated back disks. Past Surgical History: Includes a cholecystectomy, 3 disk cervical fusion. She has also had 5 hand surgeries by her report and tonsillectomy. Allergies: TO PROZAC AND GREEN TEA. Home Medications: Include Levaquin, Flagyl recently. Family History: Mother had heart disease, hypertension, diabetes, liver disease, kidney disease. Social History: She drinks alcohol. She continues to smoke cigarettes. She denies recreational myrna g use other than marijuana, which she uses frequently. Review of Systems: 10-point review of systems other than HPI, denies. Physical Examination: Vital Signs: At the time of my examination, her BMI was 24.8. Her temperature was 96.6, her blood p ressure 134/81, pulse 76, respiratory rate 18. General: She is awake, alert, and oriented. Psych: She is in no apparent distress. Psychiatric: She is appropriate conversive. HEENT: She is normocephalic. Her sclerae are anicteric. Mucous membranes are moist. Oropharynx cl ear. She has poor dentition and her oropharynx. Neck: Supple. No JVD. Chest: Normal expansion and excursion. Cardiovascular: Regular rate and rhythm. Pulmonary: Clear to auscultation bilaterally. Abdomen: Soft with left lower quadrant tenderness to palpation. No focal peritonitis. No rebound. Mild voluntary guarding. Extremities: No clubbing, cyanosis, or edema. Skin: Warm and dry. Laboratory Data: Reveals a white blood cell count of 8.8, hemoglobin 11.0, hematocrit 33.6, platelet count is 398. Her neutrophils are normal at 58. Her sodium 141, potassium 3.7, chloride is 109, ca rbon dioxide 25, BUN 4, creatinine 0.7, glucose is 89, calcium 7.6. Her AST on admission was 7, ALT 12, alkaline phosphatase 71, lipase is 439, now 89 today. Urine test was negative. UA was essentially negative. She had imaging performed which included a CT of the abdomen and pelvis, offi cially read as mild sigmoid diverticulitis, changes are present. Sigmoid mass is unlikely but not en tirely excluded. Several mildly prominent small bowel loops are present. Her small bowel enteritis is not excluded. No abscess or free air. Additional nonacute findings in the body of the report wer e noted, being the gallbladder was absent, 2.3+ cm left adrenal mass not clearly different from 2018. The right ovary contains a 2 cm cyst. She has advanced degenerative changes at L4-5 with prominent disk herniation, central spinal stenosis, not substantially different from prior imaging, May 21. Assessment And Plan: This is a 49-year-old female, who comes in with signs and symptoms of recurrent left diverticulitis. 1.IV fluid hydration. 2.N.p.o. 3.Antibiotic coverage. 4.Serial abdominal exams. 5.I have explained that the patient will require a colonoscopy likely as an outpatient after this ep isode is completely resolved to rule out a possible malignancy versus diverticulitis as she has had t his chronic condition for some time and has had multiple episodes of attacks. She requires further e valuation and discussion of possible surgical planning based on the colonoscopy findings. She agrees to proceed as indicated. Thank you for this interesting consult. SUNDEEP/JOSELYN Voice ID: [id number] Report ID: [id number]
[2019-12-10 09:15] VITALS: O2SAT 97
[2019-12-10] MEDS: ENOXAPARIN 40 MG/0.4 ML SQ SCH (10:07)
--- NOTE | 2019-12-10 13:44 | P.PN ---
Subjective Date of Service: 12/10/19 Primary Care Provider: None Chief Complaint: diverticulitis Subjective: Other (Patient feels slightly better. Still with some abdominal pain) Physical Examination - Vital Signs Temperature: 97.0 F Blood Pressure: 144/72 Pulse: 59 Respirations: 18 Pulse Ox (%): 100 - Physical Exam General: Alert, In no apparent distress, Oriented x3, Cooperative HEENT: Atraumatic Neck: Supple Respiratory: Clear to auscultation bilaterally, Normal air movement Cardiovascular: Normal pulses, Regular rate/rhythm Gastrointestinal: Hypoactive, Tenderness (Mild pain to the lower quadrant) Integumentary: No tenderness/swelling, No erythema, No warmth, No cyanosis Neurological: Normal speech, Normal strength at 5/5 x4 extr, Normal tone, Normal affect - Studies Laboratory Data (last 24 hrs) 12/09/19 16:24: WBC 13.1 H, Hgb 11.9 L, Hct 37.0, Plt Count 444 H 12/09/19 16:24: Sodium 139, Potassium 3.8, BUN 7, Creatinine 0.72, Glucose 89, Total Bilirubin 0.2, AST 7 L, ALT 12, Alkaline Phosphatase 71, Lipase 439 H Medications List Reviewed: Yes Assessment & Plan Discharge Plan: Home Plan to discharge in: 72 Hours Physician Review Additional Text: Impression: Lower abdominal pain, nausea and vomiting secondary to sigmoid diverticulitis COPD Seizure disorder GERD Tobacco abuse Plan: Lower abdominal pain, nausea and vomiting secondary to sigmoid diverticulitis: Continue IV fluids. Will provide medication for nausea and pain. Patient did not tolerate clear liquid diet this morning. Continue to remain NPO. Consider clear liquids tomorrow if pain significantly improved. Surgery consulted. Will discuss further with them. Provide incentive spirometer. Encourage ambulation. Anticipate improvement over the next 72 hr. Patient will require colonoscopy in 4-6 weeks. COPD: Will provide medication. Provide incentive spirometer. Seizure disorder: Continue home medication GERD: Will provide medication Tobacco abuse: Cessation addressed in detail. Will provide nicotine patch. Time Spent Managing Pts Care (In Minutes): 55
[2019-12-10] MEDS ORDERED: MORPHINE 2 MG/ML SYR IV ONE (17:00)
[2019-12-10] MEDS ORDERED: MORPHINE 2 MG/ML SYR ONE (17:03)
[2019-12-10 19:51] VITALS: BP 183/96; TEMP 97.6
[2019-12-10] MEDS ORDERED: ZONISAMIDE PO SCH (21:00)
--- NOTE | 2019-12-11 08:01 | P.DS ---
Discharge Date: 12/10/19 Primary Care Provider: None Disposition: AMA-LEFT AGAINST MEDICAL ADVIC Reason for Admission: diverticulitis Brief History of Present Illness: Patient was admitted with abdominal pain. Treated for diverticulitis. Patient was improving. Hospital Course: Patient did not want stay in the hospital and decided to leave against medical advice because of some family issues. So patient decided to leave against medical advice. Vital Signs/Physical Exam: Temp Pulse Resp BP Pulse Ox 97.6 F 65 16 183/96 H 100 12/10/19 19:50 12/10/19 19:50 12/10/19 19:50 12/10/19 19:50 12/10/19 19:50 Laboratory Data at Discharge: WBC 8.8 K/uL (4.3-10.9) D 12/10/19 05:47 Hgb 11.0 g/dL (12.0-15.0) L 12/10/19 05:47 Hct 33.6 % (36.0-45.0) L 12/10/19 05:47 Plt Count 398 K/uL (152-406) 12/10/19 05:47 Sodium 141 mmol/L (136-145) 12/10/19 05:47 Potassium 3.7 mmol/L (3.5-5.1) 12/10/19 05:47 BUN 4 mg/dL (7-18) L 12/10/19 05:47 Creatinine 0.70 mg/dL (0.55-1.3) 12/10/19 05:47 Glucose 89 mg/dL (74-106) 12/10/19 05:47 Total Bilirubin 0.2 mg/dL (0.2-1.0) 12/09/19 16:24 AST 7 U/L (15-37) L 12/09/19 16:24 ALT 12 U/L (12-78) 12/09/19 16:24 Alkaline Phosphatase 71 U/L (45-117) 12/09/19 16:24 Lipase 89 U/L (73-393) 12/10/19 05:47 Home Medications: Codeine/APAP [Tylenol #3*] 1 tab PO Q6H PRN 12/10/19 Ondansetron [Ondansetron Odt] 4 mg PO Q8H PRN 12/10/19 Penicillin Vk [Veetids (Pen-Vee K)*] 500 mg PO QID 12/10/19 Zonisamide 100 tab PO BID 12/10/19 Patient Discharge Instructions: Patient left against medical advice Time spent managing pt's care (in minutes): 5
== END 2019-12-10 20:11 | disposition left against medical advice (07) | DRG 392 ==
LOC: ER 16:04 → SUPCPDRO 16:04 → ERHOLD 18:10 → 2ND 20:06
PROVIDERS: ADMIT Internal Medicine Sleep Medicine; ATTEND Family Medicine
DX: K57.32 Diverticulitis of large intestine without perforation or abscess without bleeding (principal); J44.9 Chronic obstructive pulmonary disease, unspecified; I10 Essential (primary) hypertension; I25.10 Atherosclerotic heart disease of native coronary artery without angina pectoris; I25.2 Old myocardial infarction; Z90.49 Acquired absence of other specified parts of digestive tract; Z88.8 Allergy status to other drugs, medicaments and biological substances; Z79.899 Other long term (current) drug therapy; Z91.09 Other allergy status, other than to drugs and biological substances
CPT/HCPCS: 36415; 74177; 80048; 80076; 81003; 81025; 83690; 85025; 94760; 96361; 96365; 96368; 96375; 99285; J0744; J1650; J2270; J2405; J7030; J7606; J7799; Q9967

== ENCOUNTER 2020-01-21 20:40 | Inpatient (IN) | payer OTHER ==
--- OUTSIDE RECORDS SUMMARY | 2020-01-21 20:42 | XMS REPORT | Continuity of Care Document ---
:1970 Author Organization [facility] t Address [address] [place] [address] Care Team Providers Name Role Phone Dima [...] Department ID 2019-03-09 2019-03-09 LEIGH Zimmerman [id number] 00:00:00 00:00:00 Yehuda Harrell [id number] Shonna [id number] Niko [phone] nal [id number] Building Results This patient has no known results.
[2020-01-21] MEDS ORDERED: MORPHINE 4 MG/ML SYR ONE (21:18)
[2020-01-21] MEDS ORDERED: ONDANSETRON 4 MG/2 ML VIAL ONE (21:18)
[2020-01-21] MEDS ORDERED: NA CHLORIDE 0.9% 1,000 ML ONE (21:18)
[2020-01-21 21:29] LABS: Absolute Lymphocytes (CBC) 3.4 K/uL (0.7-4.9); Lymphocytes % 36.8 % (15.3-44.8); MPV 6.3 fL (7.6-11.3); RBC Red Blood Cell Count 4.59 M/uL (3.86-4.86)
[2020-01-21 21:47] LABS: Albumin 3.7 g/dL (3.4-5.0); Bilirubin Direct 0.1 mg/dL (0-0.2); Bilirubin Total 0.4 mg/dL (0.2-1.0); Potassium 3.1 mmol/L (3.5-5.1); Protein, Total 7.3 g/dL (6.4-8.2)
[2020-01-22] MEDS ORDERED: MORPHINE 4 MG/ML SYR ONE (00:04)
[2020-01-22] MEDS ORDERED: ONDANSETRON 4 MG/2 ML VIAL ONE (00:04)
--- NOTE | 2020-01-22 00:13 | EDPHYS ---
Physician Documentation [facility] Name: Heather Coon Age: 50 yrs Sex: Female : 1970 Arrival Date: 01/21/2020 Time: 20:41 Bed 15 Private MD: ED Physician Jones Parham HPI: 01/20 20:55 This 50 yrs old Female presents to ER via EMS with complaints of Abdominal rn Pain. 20:55 The patient presents with abdominal pain in the left lower quadrant. Onset: The rn symptoms/episode began/occurred yesterday. The symptoms do not radiate. Associated signs and symptoms: Pertinent positives: nausea and vomiting, blood in stools, fever. Modifying factors: The symptoms are alleviated by nothing, the symptoms are aggravated by touching the area. Severity of pain: At its worst the pain was moderate in the emergency department the pain is unchanged. The patient has not experienced similar symptoms in the past. The patient has experienced similar episodes in the past. The patient has not recently seen a physician. Reports abd pain, LLQ, began yesterday, assoc with nausea/vomiting/diarrhea/blood in stool. Reports similar to previous diverticulitis. Reports admitted this past month for diverticulitis, was feeling better, abx only while in hospital. No trauma. . 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 - Social history:: Smoking status: Patient reports the use of cigarette tobacco products. - Family history:: not pertinent. - Hospitalizations: : No recent hospitalization is reported. ROS: 20:55 Constitutional: Negative for fever, chills, and weight loss, Eyes: Negative for injury, rn pain, redness, and discharge, Cardiovascular: Negative for chest pain, palpitations, and edema, Respiratory: Negative for shortness of breath, cough, wheezing, and pleuritic chest pain, Abdomen/GI: Negative for constipation, MS/Extremity: Negative for injury and deformity, Skin: Negative for injury, rash, and discoloration, Neuro: Negative for headache, numbness, tingling, and seizure. Exam: 20:55 Constitutional: This is a well developed, well nourished patient who is awake, alert, rn and in no acute distress. Head/Face: Normocephalic, atraumatic. ENT: dry MM Cardiovascular: Tachycardic, regular Respiratory: No increased work of breathing, no retractions or nasal flaring. Abdomen/GI: Soft, + mild LLQ tenderness with guarding, no rebound, + mild RLQ tenderness. Skin: Warm, dry MS/ Extremity: Pulses equal, no cyanosis. Neurovascular intact. Full, normal range of motion. Equal circumference. Neuro: Awake and alert, GCS 15, oriented to person, place, time, and situation. Cranial nerves II-XII grossly intact. Motor strength 5/5 in all extremities. Sensory grossly intact. Vital Signs: 20:46 BP 165 / 81; Pulse 107; Resp 18; Temp 99.2(O); Pulse Ox 98% on R/A; Weight 68.49 kg lp1 (R); Height 5 ft. 2 in. (157.48 cm); Pain 10/10; 21:30 BP 150 / 89; Pulse 99; Resp 18; Pulse Ox 98% ; ah 22:30 BP 129 / 76; Pulse 90; Resp 18; Pulse Ox 98% on R/A; lp1 23:35 BP 126 / 83; Pulse 84; Resp 18; Pulse Ox 96% on R/A; lp1 01/21 01:13 BP 118 / 68; Pulse 64; Resp 16; Pulse Ox 97% on R/A; lp1 03:00 BP 145 / 90; Pulse 78; Resp 16; Temp 98.3(O); Pulse Ox 98% on R/A; Pain 8/10; lp1 01/20 20:46 Body Mass Index 27.62 (68.49 kg, 157.48 cm) lp1 MDM: 01/20 20:49 Patient medically screened. rn 01/21 00:10 Differential diagnosis: diverticulitis, gastritis, non-specific abd pain, pancreatitis, rn colitis, enteritis, viral syndrome. Data reviewed: vital signs, nurses notes, lab test result(s), radiologic studies, CT scan, and as a result, I will admit patient. Counseling: I had a detailed discussion with the patient and/or guardian regarding: the historical points, exam findings, and any diagnostic results supporting the discharge/admit diagnosis, lab results, radiology results, the need for further work-up and treatment in the hospital. Response to treatment: the patient's symptoms have mildly improved after treatment, and as a result, I will admit patient. Admission orders: after a detailed discussion of the patient's condition and case, the admit orders are written by me. ED course: Pt still with vomiting, unable to tolerate PO, CT shows enteritis vs early SBO, clinical picture more consistent with enteritis given vomiting/diarrhea/blood in stool/low grade fever. Will admit for antiemetics/pain control/fluids. Does not need surgical consult at this point. . 01/20 20:50 Order name: Basic Metabolic Panel; Complete Time: 21:51 01/20 20:50 Order name: CBC with Diff; Complete Time: 21:51 01/20 20:50 Order name: Hepatic Function; Complete Time: 21:51 01/20 20:50 Order name: Lipase; Complete Time: 21:51 01/20 20:50 Order name: CT Abd/Pelvis - PO and IV Contrast 01/20 20:50 Order name: IV Saline Lock; Complete Time: 21:27 01/20 20:50 Order name: Labs collected and sent; Complete Time: 21:27 01/21 01:23 Order name: CONS Pharmacy Consult EDMS 01/21 01:23 Order name: Full Liquid EDMS Administered Medications: 01/20 21:20 Drug: Zofran (Ondansetron) 4 mg Route: IVP; Site: right wrist; ah 22:30 Follow up: Response: No adverse reaction lp1 21:20 Drug: NS 0.9% 1000 ml Route: IV; Rate: 1000 ml; Site: right wrist; ah 22:30 Follow up: IV Status: Completed infusion; IV Intake: 1000ml lp1 21:22 Drug: morphine 4 mg Route: IVP; Site: right wrist; 22:30 Follow up: Response: Pain is decreased lp1 01/21 00:00 Drug: Zofran (Ondansetron) 4 mg Route: IVP; Site: right wrist; lp1 01:11 Follow up: Response: Nausea is decreased lp1 00:01 Drug: morphine 4 mg Route: IVP; Site: right wrist; lp1 01:12 Follow up: Response: Pain is decreased lp1 Disposition: 01/22/20 00:13 Hospitalization ordered by Darrick Fry for Observation. Preliminary diagnosis are Enteritis, unspecified, Intractable vomiting, Diarrhea, unspecified, Dehydration. - Bed requested for Telemetry/MedSurg (observation). - Status is Observation. lp1 - Condition is Stable. - Problem is new. - Symptoms have improved. Signatures: Dispatcher [employer] EDMS Aicha Vera RN RN Jones Parham MD MD rn Pena, Laura, RN RN [facility] Shayy Yates RN RN Corrections: (The following items were deleted from the chart) 00:15 00:13 Hospitalization Ordered by Darrick Fry MD for Observation. Preliminary mw diagnosis is Enteritis, unspecified; Intractable vomiting; Diarrhea, unspecified; Dehydration. Bed requested for Telemetry/MedSurg (observation). Status is Observation. Condition is Stable. Problem is new. Symptoms have improved. rn 00:23 00:15 01/22/2020 00:13 Hospitalization Ordered by Darrick Fry MD for Observation. mw Preliminary diagnosis is Enteritis, unspecified; Intractable vomiting; Diarrhea, unspecified; Dehydration. Bed requested for [facility] ER HOLD. Status is Observation. Condition is Stable. Problem is new. Symptoms have improved. mw 03:44 00:23 01/22/2020 00:13 Hospitalization Ordered by Darrick Fry MD for Observation. lp1 Preliminary diagnosis is Enteritis, unspecified; Intractable vomiting; Diarrhea, unspecified; Dehydration. Bed requested for Telemetry/MedSurg (observation). Status is Observation. Condition is Stable. Problem is new. Symptoms have improved. mw
--- NOTE | 2020-01-22 00:13 | ER ---
Nurse's Notes [facility] Name: Heather Coon Age: 50 yrs Sex: Female : 1970 Arrival Date: 01/21/2020 Time: 20:41 Bed 15 Private MD: Diagnosis: Enteritis, unspecified;Intractable vomiting;Diarrhea, unspecified;Dehydration Presentation: 01/20 20:46 Chief complaint: EMS states: Called for abdominal pain x 2 days; Patient states blood lp1 in stool, red in color, dark black stool yesterday, states similar symptoms with hx of diverticulitis. Coronavirus screen: Proceed with normal triage. Ebola Screen: No symptoms or risks identified at this time. Initial Sepsis Screen: Does the patient meet any 2 criteria? No. Patient's initial sepsis screen is negative. Does the patient have a suspected source of infection? No. Patient's initial sepsis screen is negative. Risk Assessment: Do you want to hurt yourself or someone else? Patient reports no desire to harm self or others. Onset of symptoms was January 19, 2020. 20:46 Method Of Arrival: EMS: [facility] lp1 20:46 Acuity: ANDER 3 lp1 20:52 Care prior to arrival: Glucose check: 91. lp1 [employer] HISTORY: 20:51 LMP 01/21/2020 lp1 Historical: - Allergies: 20:51 Prozac; lp1 20:51 Fluoxetine; lp1 20:51 Green Tea; lp1 - Home Meds: 20:51 lisinopril-hydrochlorothiazide 20-12.5 mg Oral tab 1 tab once daily [Active]; lp1 zonisamide oral oral [Active]; - PMHx: 20:51 Anxiety; Bipolar disorder; Chronic pain; Depression; Diverticulitis; Herniated Back lp1 Disc; Hypertension; Myocardial infarction; pt reports hx of seizures; Spastic Muscles; - PSHx: 20:51 Cholecystectomy; Neck fusion; lp1 - Immunization history:: Adult Immunizations up to date. - Social history:: Smoking status: Patient reports the use of cigarette tobacco products. - Family history:: not pertinent. - Hospitalizations: : No recent hospitalization is reported. Screenin:51 Abuse screen: Denies threats or abuse. Denies injuries from another. Nutritional lp1 screening: No deficits noted. Tuberculosis screening: No symptoms or risk factors identified. Fall Risk None identified. Assessment: 21:05 General: Appears uncomfortable, Behavior is calm, cooperative, appropriate for age. Pain: Complains of pain in left lower quadrant. Neuro: Level of Consciousness is awake, alert, obeys commands, Oriented to person, place, time, situation, Appropriate for age. Cardiovascular: Capillary refill < 3 seconds Patient's skin is warm and dry. Respiratory: Airway is patent Respiratory effort is even, unlabored, Respiratory pattern is regular, symmetrical. GI: Bowel sounds present X 4 quads. Abdomen is tender to palpation in left lower quadrant Reports bloody stool. EENT: Derm: Skin is intact, is healthy with good turgor. 21:39 Reassessment: Notified radiology that pt finished oragl contrast. 21:48 Reassessment: Pt states that she has epilepsy and sometimes pain causes them. Seizure ah pads applied to bilateral bed rails. 22:39 Reassessment: Patient appears in no apparent distress at this time. Patient aware of lp1 waiting to be taken for CT; Ambulated to bathroom independently at this time. 23:35 Reassessment: Patient returned from CT at this time; no further needs. lp1 23:55 Reassessment: Patient states return of nausea and pain; Verbal order from Dr. Parham to lp1 repeat Morphine 4 mg IV, Zofran 4 mg IV. 01/21 01:12 Reassessment: Patient resting, eyes closed, respirations even, unlabored. lp1 01:38 Reassessment: Nurse unable to take report, will call back. lp1 02:38 Reassessment: Attempted to call report; nurse unavailable. lp1 Vital Signs: 01/20 20:46 BP 165 / 81; Pulse 107; Resp 18; Temp 99.2(O); Pulse Ox 98% on R/A; Weight 68.49 kg lp1 (R); Height 5 ft. 2 in. (157.48 cm); Pain 10/10; 21:30 BP 150 / 89; Pulse 99; Resp 18; Pulse Ox 98% ; ah 22:30 BP 129 / 76; Pulse 90; Resp 18; Pulse Ox 98% on R/A; lp1 23:35 BP 126 / 83; Pulse 84; Resp 18; Pulse Ox 96% on R/A; lp1 07/05 01:13 BP 118 / 68; Pulse 64; Resp 16; Pulse Ox 97% on R/A; lp1 03:00 BP 145 / 90; Pulse 78; Resp 16; Temp 98.3(O); Pulse Ox 98% on R/A; Pain 8/10; lp1 01/20 20:46 Body Mass Index 27.62 (68.49 kg, 157.48 cm) lp1 ED Course: 01/20 20:41 Patient arrived in ED. cf2 20:48 Triage completed. lp1 20:48 Arm band placed on. lp1 20:49 Darrick Coughlin MD is Attending Physician. ma2 20:49 Jones Parham MD is Attending Physician. rn 20:59 Shayy Yates RN is Primary Nurse. 21:20 Initial lab(s) drawn, by ma, sent to lab. Inserted saline lock: 20 gauge in right ah wrist, using aseptic technique. 21:40 Patient has correct armband on for positive identification. Bed in low position. Call light in reach. Side rails up X 1. Pulse ox on. NIBP on. 22:08 Report received from BETH Lucas. lp1 22:40 No provider procedures requiring assistance completed. lp1 23:33 CT Abd/Pelvis - PO and IV Contrast In Process Unspecified. EDMS 01/21 00:12 Darrick Fry MD is Hospitalizing Provider. rn 01:12 Patient admitted, IV remains in place. lp1 Administered Medications: 01/20 21:20 Drug: Zofran (Ondansetron) 4 mg Route: IVP; Site: right wrist; 22:30 Follow up: Response: No adverse reaction lp1 21:20 Drug: NS 0.9% 1000 ml Route: IV; Rate: 1000 ml; Site: right wrist; 22:30 Follow up: IV Status: Completed infusion; IV Intake: 1000ml lp1 21:22 Drug: morphine 4 mg Route: IVP; Site: right wrist; 22:30 Follow up: Response: Pain is decreased lp1 01/21 00:00 Drug: Zofran (Ondansetron) 4 mg Route: IVP; Site: right wrist; lp1 01:11 Follow up: Response: Nausea is decreased lp1 00:01 Drug: morphine 4 mg Route: IVP; Site: right wrist; lp1 01:12 Follow up: Response: Pain is decreased lp1 Intake: 01/20 22:30 IV: 1000ml; Total: 1000ml. lp1 Outcome: 01/21 00:13 Decision to Hospitalize by Provider. rn 01:12 Condition: stable lp1 01:12 Instructed on the need for admit. 03:32 Admitted to Med/surg accompanied by tech, via wheelchair, room 204, with chart, Report lp1 called to BETH Small 03:44 Patient left the ED. lp1 Signatures: Dispatcher [employer] EDMS Jones Parham MD MD rn Pena, Laura, RN RN lp1 Darrick Coughlin MD MD nc2 Jerry Bernstein 2 Shayy Yates, RN RN
[2020-01-22] MEDS ORDERED: ACETAMINOPHEN 500 MG TAB PO PRN (01:20)
[2020-01-22] MEDS ORDERED: MORPHINE 2 MG/ML SYR ONE (03:15)
[2020-01-22] MEDS: NA CHLORIDE 0.9% 1,000 ML IV SCH ×3 (03:15→22:00)
[2020-01-22] MEDS: MORPHINE 2 MG/ML SYR IV PRN ×5 (03:15→20:33)
[2020-01-22] MEDS ORDERED: NA CHLORIDE 0.9% 1,000 ML ONE (03:18)
[2020-01-22 04:17] VITALS: BMI 27.3
[2020-01-22] MEDS: ONDANSETRON 4 MG/2 ML VIAL IV PRN ×4 (04:23→20:39)
[2020-01-22 04:25] VITALS: O2SAT 98
[2020-01-22 06:02] LABS: Absolute Lymphocytes (CBC) 3.2 K/uL (0.7-4.9); Basophils % 0.9 % (0-1.3); Hematocrit 34.7 % (36.0-45.0); Lymphocytes % 47.6 % (15.3-44.8); MPV 6.6 fL (7.6-11.3)
[2020-01-22 06:22] LABS: Potassium 3.8 mmol/L (3.5-5.1)
[2020-01-22] MEDS ORDERED: ALBUTEROL INHALER 60 PUFF/8 GM IH PRN (07:09)
[2020-01-22 07:58] LABS: Blood Morphology Comment NOT SEEN (NOT SEEN); Platelet Estimate ADEQ; Platelets, Giant FEW
--- NOTE | 2020-01-22 08:43 | P.HP ---
Certification for Inpatient Patient admitted to: Observation With expected LOS: <2 Midnights Patient will require the following post-hospital care: None Practitioner: I am a practitioner with admitting privileges, knowledge of patient current condition, hospital course, and medical plan of care. Services: Services provided to patient in accordance with Admission requirements found in Title 42 Section 412.3 of the Code of Federal Regulations Patient History Date of Service: 01/22/20 Reason for admission: ABDOMINAL PAIN; NAUSEA AND VOMITING History of Present Illness: Patient is a 50-year-old female who came to the hospital with abdominal pain. Patient has some diarrhea a couple of days ago and then she started having nausea and vomiting. She came into the ER because her pain got severe. She has a history of diverticulitis. She was concerned that she had as her eyes of the diverticulitis. She came to the emergency room her workup revealed enteritis of the small intestines. She will be admitted to the hospital for IV fluids and we will do stool studies. Patient will be admitted for observation. If she is able to start tolerating diet then we should be able to discharge her home later today. Allergies fluoxetine HCl [From Prozac] Allergy (Mild, Verified 01/22/20 03:53) severeheadache Green tea Allergy (Unknown, Uncoded 12/10/19 01:03) seizures Home Medications: Zonisamide 100 tab PO DAILY 12/10/19 Albuterol Inhaler [Ventolin Inhaler*] 2 puff IH BID PRN 01/22/20 Lisinopril/Hctz 40 1 tab PO BEDTIME 01/22/20 - Past Medical/Surgical History Has patient received pneumonia vaccine in the past: No Diabetic: No -: COPD -: HTN -: migraines -: depression -: anxiety -: OCD -: Insomnia -: Pancreatitis -: CAD -: Diverticulitis -: Herniated back disc -: hidtory od seizures -: 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 -: cholecystectomy -: 5 hand surgeries -: tonsilectomy - Family History Mother Medical History: Heart disease, Hypertension, GI disease, Diabetes, Liver d isease, Kidney disease - Social History Smoking Status: Current every day smoker Alcohol use: Yes CD- Drugs: No Caffeine use: Yes Place of Residence: Home Review of Systems 10-point ROS is otherwise unremarkable Physical Examination - Vital Signs Temperature: 96.8 F Blood Pressure: 154/85 Pulse: 59 Respirations: 16 Pulse Ox (%): 98 - Physical Exam General: Alert, In no apparent distress, Oriented x3 HEENT: Atraumatic, PERRLA, Mucous membr. moist/pink, EOMI, Sclerae nonicteric Neck: Supple, 2+ carotid pulse no bruit, No LAD, Without JVD or thyroid abnormality Respiratory: Clear to auscultation bilaterally, Normal air movement Cardiovascular: Regular rate/rhythm, Normal S1 S2 Gastrointestinal: Hypoactive, Soft and benign, Non-distended, Tenderness (Umbilical area tenderness minimal) Musculoskeletal: No clubbing, No swelling, No tenderness Integumentary: No rashes Neurological: Normal gait, Normal speech, Normal strength at 5/5 x4 extr, Normal tone, Sensation intact, Cranial nerves 3-12 intact, Normal affect Lymphatics: No axilla or inguinal lymphadenopathy - Studies Laboratory Data (last 24 hrs) 01/21/20 21:18: WBC 9.2, Hgb 12.2, Hct 36.0, Plt Count 454 H 01/21/20 21:18: Sodium 138, Potassium 3.1 L, BUN 8, Creatinine 0.87, Glucose 85, Total Bilirubin 0.4, AST 13 L, ALT 13, Alkaline Phosphatase 71, Lipase 363 Assessment & Plan - Problems (Diagnosis) (1) Viral gastroenteritis Current Visit: Yes Status: Acute (2) Hypertension Current Visit: Yes Status: Acute - Plan 1. Continue with IV hydration 2. Continue with IV antibiotics 3. Continue with pain control 4. Clear liquid diet and advance as tolerated 5. Outpatient GI consultation; outpatient colonoscopy in 6-12 weeks 6. GI and DVT prophylaxis Possibly discharge her later today if she is able to tolerate diet. Discharge Plan: Home Plan to discharge in: 24 Hours - Advance Directives Does patient have a Living Will: No Does patient have a Durable POA for Healthcare: No - Code Status/Comfort Care Code Status Assessed: Yes Code Status: Full Code Critical Care: No Time Spent Managing PTS Care (In Minutes): 45
[2020-01-22] MEDS: HYDROCORTISONE SUC 100 MG INJ IV SCH ×2 (08:59→12:52)
[2020-01-22] MEDS: ZONISAMIDE PO SCH (09:00)
[2020-01-22] MEDS: HCTZ PO SCH (09:00)
[2020-01-22] MEDS: LISINOPRIL PO SCH (09:00)
[2020-01-22 09:38] LABS: Urine Appearance CLOUDY; Urine Bilirubin NEGATIVE (NEG); Urine Blood 3+ (NEG); Urine Color YELLOW; Urine Glucose NEGATIVE (NEG); Urine Microscopic Reflex ORDER UMIC; Urine Protein NEGATIVE (NEG); Urine Specific Gravity >=1.030 (1.005-1.030)
[2020-01-22 09:45] LABS: Urine Bacteria <20 /HPF (<20); Urine Culture Reflex Order NOT NEEDED; Urine RBC 20-50 /HPF (NONE SEEN)
[2020-01-22] MEDS ORDERED: PANTOPRAZOLE 40 MG INJ IVP ONE (18:42)
[2020-01-22] MEDS ORDERED: SODIUM CHLORIDE 0.9% 10ML INJ IV PRN ×2 (18:42→23:44)
[2020-01-22] MEDS ORDERED: LISINOPRIL PO SCH (21:00)
[2020-01-22] MEDS ORDERED: HCTZ PO SCH (21:00)
[2020-01-23] MEDS: MORPHINE 2 MG/ML SYR IV PRN ×3 (00:02→09:44)
[2020-01-23] MEDS: NA CHLORIDE 0.9% 1,000 ML IV SCH ×2 (00:03→05:26)
[2020-01-23] MEDS ORDERED: TEMAZEPAM 15 MG CAP PO SCH (00:45)
[2020-01-23] MEDS: ONDANSETRON 4 MG/2 ML VIAL IV PRN ×2 (05:25→09:43)
[2020-01-23] MEDS ORDERED: PANTOPRAZOLE 40 MG INJ IVP SCH (06:00)
[2020-01-23 07:21] LABS: Barbiturates NEGATIVE (NEGATIVE); Benzodiazepines NEGATIVE (NEGATIVE); Cocaine POSITIVE (NEGATIVE); METHAMPHETAM NEGATIVE (NEGATIVE); Methadone NEGATIVE (NEGATIVE); Opiates POSITIVE (NEGATIVE); Phencyclidine NEGATIVE (NEGATIVE); THC Cannibis NEGATIVE (NEGATIVE)
[2020-01-23] MEDS ORDERED: clonazePAM 0.5 MG TAB PO PRN (07:51)
--- NOTE | 2020-01-23 08:47 | RAD REPORT ---
EXAM DESCRIPTION: RAD - Abdomen W Erect - 01/23/2020 6:25 am CLINICAL HISTORY: abd pain; ? partial obstruction; Pain COMPARISON: ABDOMEN W ERECT dated 12/28/2014 FINDINGS: Mildly prominent colon is seen filled with air and contrast material. A bowel obstruction pattern is not seen. No free air suspected. Cholecystectomy clips. No significant bony findings. IMPRESSION: No bowel obstruction pattern identified.
[2020-01-23] MEDS: HCTZ PO SCH (09:00)
[2020-01-23] MEDS: ZONISAMIDE PO SCH (09:00)
[2020-01-23] MEDS: LISINOPRIL PO SCH (09:00)
[2020-01-23 09:04] VITALS: BP 165/90; TEMP 97.4
--- NOTE | 2020-01-23 09:49 | RAD REPORT ---
EXAM DESCRIPTION: US - Renal Ultrasound-Complete - 01/23/2020 9:15 am CLINICAL HISTORY: Abd pain; nephrolithiasis COMPARISON: ABDOMINAL EXAM LIMITED dated 11/23/2012; Abdomen W Erect dated 01/23/2020; Abdomen Pelvis W Contrast dated 01/21/2020; Abdomen Pelvis W Contrast dated 12/09/2019 FINDINGS: Both kidneys are normal in size, shape and echotexture. The right kidney measures 10.7 x 5.5 x 4.2 cm. No hydronephrosis, focal mass or perinephric fluid. The left kidney measures 9.1 x 4.6 x 4.6 cm. No hydronephrosis, focal mass or perinephric fluid. The urinary bladder is incompletely distended without gross abnormality seen. IMPRESSION: Unremarkable renal sonogram.
[2020-01-23 11:15] LABS: C.diff Antigen/Toxin Ag neg : Tox neg (NEG : NEG)
--- NOTE | 2020-01-23 11:20 | RAD REPORT ---
EXAM DESCRIPTION: CT - Abdomen Pelvis W Contrast - 01/22/2020 7:21 am CLINICAL HISTORY: 50 years Female hx of diverticulitis;Abd pain COMPARISON: December 09, 2019. TECHNIQUE: Images were obtained in axial, sagittal, and coronal planes. Intravenous and oral contras t was administered. This exam was performed according to our departmental dose-optimization program which includes use of Automated Exposure Control, adjustment of the mA and/or kV according to patient size and/or use o f iterative reconstruction technique. FINDINGS: No abnormality involving the liver, spleen, pancreas, or right adrenal gland. 3.2 cm low-a ttenuation lesion left adrenal gland likely myolipoma unchanged when correlated with the prior study. Contrast identified within the stomach and duodenum. Moderate distention duodenal sweep. Mildly diste nded fluid-filled small bowel loops jejunum. Contrast identified within the colon. No definite bowel obstruction or perforation. Appendix within normal limits. No abnormality abdominal aorta or portal vein. No adenopathy or abnormal fluid collections seen. No obstructing renal calcifications bilaterally. No hydronephrosis bilaterally. Incompletely distende d bladder. No acute osseous abnormality. No abnormality lower lungs bilaterally. IMPRESSION: Mild to moderately distended duodenum and jejunum possibly enteritis however clinical co rrelation and follow-up would be suggested to entirely exclude developing partial small bowel obstruc tion. No CT evidence for diverticulitis. 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 Electronically signed by: Jordyn Grimes MD 01/21/2020 11:44 PM CDT Due to temporary technical issues with the PACS/Fluency reporting system, reports are being signed by the in house radiologist without review as a courtesy to ensure prompt reporting. The interpreting r adiologist is fully responsible for the content of the report.
--- NOTE | 2020-01-23 16:26 | P.DS ---
Admission Date: 01/22/20 Discharge Date: 01/23/20 Primary Care Provider: Unknown Disposition: AMA-LEFT AGAINST MEDICAL ADVIC Discharge Condition: GOOD Reason for Admission: ABDOMINAL PAIN; NAUSEA AND VOMITING Hospital Course: Patient admitted for abdominal pain secondary to viral gastroenteritis. Dr. Fry was planning to discharge her if she improved with diet. Patient decided to leave against medical advice before diet could be advanced. Vital Signs/Physical Exam: Temp Pulse Resp BP Pulse Ox 97.4 F 61 18 165/90 H 99 01/23/20 08:00 01/23/20 08:00 01/23/20 09:44 01/23/20 08:00 01/23/20 09:44 General: Other (Patient not seen as the patient left against medical advice.) Laboratory Data at Discharge: WBC 6.7 K/uL (4.3-10.9) D 01/22/20 05:24 Hgb 11.5 g/dL (12.0-15.0) L 01/22/20 05:24 Hct 34.7 % (36.0-45.0) L 01/22/20 05:24 Plt Count 437 K/uL (152-406) H 01/22/20 05:24 Sodium 142 mmol/L (136-145) 01/22/20 05:24 Potassium 3.8 mmol/L (3.5-5.1) 01/22/20 05:24 BUN 6 mg/dL (7-18) L 01/22/20 05:24 Creatinine 0.80 mg/dL (0.55-1.3) 01/22/20 05:24 Glucose 79 mg/dL (74-106) 01/22/20 05:24 Total Bilirubin 0.4 mg/dL (0.2-1.0) 01/21/20 21:18 AST 13 U/L (15-37) L 01/21/20 21:18 ALT 13 U/L (12-78) 01/21/20 21:18 Alkaline Phosphatase 71 U/L (45-117) 01/21/20 21:18 Lipase 363 U/L (73-393) 01/21/20 21:18 Home Medications: Zonisamide 100 tab PO DAILY 12/10/19 Albuterol Inhaler [Ventolin Inhaler*] 2 puff IH BID PRN 01/22/20 Lisinopril/Hctz 1 tab PO BEDTIME 01/22/20 Patient Discharge Instructions: OK TO DC IV AND DC HOME. FOLLOW-UP WITH PRIMARY CARE PROVIDER IN 1-2 WEEKS. FOLLOW-UP WITH GASTROENTEROLOGY IN 2-4 WEEKS. RETURN TO THE ER IF SYMPTOMS WORSEN. CALL or TEXT DR. FRY AT [phone] IF ANY QUESTIONS REGARDING HOSPITAL STAY. PLEASE CALL THE FLOOR AT [phone] IF ANY MEDICATION OR NURSING QUESTIONS. Diet: Regular Activity: Fall precautions
== END 2020-01-23 11:10 | disposition left against medical advice (07) | DRG 392 ==
LOC: ER 20:40 → ERHOLD 01-22 01:28 → 2ND 01-22 03:34 → OBSVTOIN 01-22 15:48
PROVIDERS: ADMIT Family Medicine; ATTEND Hospitalist
DX: A08.4 Viral intestinal infection, unspecified (principal); J44.9 Chronic obstructive pulmonary disease, unspecified; I10 Essential (primary) hypertension; G43.909 Migraine, unspecified, not intractable, without status migrainosus; F41.8 Other specified anxiety disorders; F42.9 Obsessive-compulsive disorder, unspecified; G47.00 Insomnia, unspecified; I25.10 Atherosclerotic heart disease of native coronary artery without angina pectoris; F17.200 Nicotine dependence, unspecified, uncomplicated; Z53.29 Procedure and treatment not carried out because of patient's decision for other reasons; Z20.828 Contact with and (suspected) exposure to other viral communicable diseases
CPT/HCPCS: 36415; 74019; 74177; 76770; 80048; 80076; 80307; 81003; 81015; 83690; 85025; 87324; 87449; 96361; 96374; 96375; 99285; C9113; G0378; J1720; J2270; J2405; J7030; Q9967; U0002

== ENCOUNTER 2020-02-14 10:34 | Observation (INO) | payer OTHER ==
[2020-02-14] MEDS ORDERED: Ringers Lactate 1,000 ML IV ONE (11:21)
[2020-02-14] MEDS ORDERED: LIDOCAINE 1% MPF 5 ML VIAL ONE (11:35)
[2020-02-14] MEDS ORDERED: propofoL 200 MG/20 ML VIAL IV ONE (11:35)
[2020-02-14] MEDS ORDERED: dexAMETHasone 4 MG/ML VIAL ONE (11:54)
[2020-02-14] MEDS ORDERED: ONDANSETRON 4 MG/2 ML VIAL ONE (11:54)
--- NOTE | 2020-02-14 12:21 | ENDO RPT ---
[address], [address] COLONOSCOPY PROCEDURE REPORT EXAM DATE: 02/14/2020 PATIENT NAME: Heather Coon MR #: [id number] BIRTHDATE: 1970 ATTENDING: Ronnell Luz DR STATUS: outpatient ICE CREAM MIXER: Kristin Thacker RN and Jose Otero [facility] INDICATIONS: The patient is a 50 yr old Female here for a colonoscopy due to colon cancer screening PROCEDURE PERFORMED: Colonoscopy with biopsy - cold polypectomy MEDICATIONS: Per Anesthesia. ESTIMATED BLOOD LOSS: None CONSENT: The patient understands the risks and benefits of the procedure and understands that these risks include, but are not limited to: sedation, allergic reaction, infection, perforation and/or bleeding. Alternative means of evaluation and treatment include, among others: physical exam, x-rays, and/or surgical intervention. The patient elects to proceed with this endoscopic procedure. DESCRIPTION OF PROCEDURE: During intra-op preparation period all mechanical medical equipment was checked for proper function. Hand hygiene and appropriate measures for infection prevention was taken. Procedure, possible complications, alternatives including, but not limited to possibility of bleeding, perforation, tear, infection, sepsis, need for surgery, need for blood transfusion, were explained to the patient. After the risks, benefits and alternatives of the procedure were thoroughly explained, Informed consent was verified, confirmed and timeout was successfully executed by the treatment team. The patient was placed in the left lateral position. A digital rectal exam was performed and revealed internal hemorrhoids. After appropriate level of anesthesia, the scope was passed. The EC-[id number] ([id number]) endoscope was introduced through the anus and advanced to the cecum, which was identified by both the appendix and ileocecal valve. The quality of the prep was inadequate. The instrument was then slowly withdrawn as the colon was fully examined. Scope withdrawal time was 10 minutes. COLON FINDINGS: A small smooth sessile polyp with a friable surface was found at the cecum. A polypectomy was performed using snare cautery. The resection was complete, the polyp tissue was completely retrieved and sent to histology. There was moderate diverticulosis noted in the sigmoid colon with associated inflammatory changes and petechiae. No bleeding was noted from the diverticulosis. Small internal hemorrhoids were found. Retroflexed views revealed no abnormalities. The scope was then completely withdrawn from the patient and the procedure terminated. ADVERSE EVENTS: There were no complications. IMPRESSIONS: 1. Small sessile polyp was found at the cecum; polypectomy was performed using snare cautery 2. There was moderate diverticulosis noted in the sigmoid colon 3. Small internal hemorrhoids RECOMMENDATIONS: 1. avoid NSAIDS for 2 weeks 2. follow-up: office 2 week(s) 3. Monitor for any evidence of rectal bleeding. 4. hemorrhoidal hygiene RECALL: Return in 3 week(s) for Colonoscopy. Inadequate prep - heavy stool burden Ronnell Luz DR eSigned: Ronnell Luz DR 02/14/2020 12:20 PM cc: CPT CODES: ICD9 CODES: PATIENT NAME: Heather Coon MR#: [id number]
--- NOTE | 2020-02-14 12:21 | ENDO RPT ---
[address], [address] COLONOSCOPY PROCEDURE REPORT EXAM DATE: 02/14/2020 PATIENT NAME: Heather Coon MR #: [id number] BIRTHDATE: 1970 ATTENDING: Ronnell Luz DR STATUS: outpatient CONCRETER: Kristin Thacker RN and Jose Otero [facility] INDICATIONS: The patient is a 50 yr old Female here for a colonoscopy due to colon cancer screening PROCEDURE PERFORMED: Colonoscopy with biopsy - cold polypectomy MEDICATIONS: Per Anesthesia. ESTIMATED BLOOD LOSS: None CONSENT: The patient understands the risks and benefits of the procedure and understands that these risks include, but are not limited to: sedation, allergic reaction, infection, perforation and/or bleeding. Alternative means of evaluation and treatment include, among others: physical exam, x-rays, and/or surgical intervention. The patient elects to proceed with this endoscopic procedure. DESCRIPTION OF PROCEDURE: During intra-op preparation period all mechanical medical equipment was checked for proper function. Hand hygiene and appropriate measures for infection prevention was taken. Procedure, possible complications, alternatives including, but not limited to possibility of bleeding, perforation, tear, infection, sepsis, need for surgery, need for blood transfusion, were explained to the patient. After the risks, benefits and alternatives of the procedure were thoroughly explained, Informed consent was verified, confirmed and timeout was successfully executed by the treatment team. The patient was placed in the left lateral position. A digital rectal exam was performed and revealed internal hemorrhoids. After appropriate level of anesthesia, the scope was passed. The EC-3890Li ([id number]) endoscope was introduced through the anus and advanced to the cecum, which was identified by both the appendix and ileocecal valve. The quality of the prep was inadequate. The instrument was then slowly withdrawn as the colon was fully examined. Scope withdrawal time was 10 minutes. COLON FINDINGS: A small smooth sessile polyp with a friable surface was found at the cecum. A polypectomy was performed using snare cautery. The resection was complete, the polyp tissue was completely retrieved and sent to histology. There was moderate diverticulosis noted in the sigmoid colon with associated inflammatory changes and petechiae. No bleeding was noted from the diverticulosis. Small internal hemorrhoids were found. Retroflexed views revealed no abnormalities. The scope was then completely withdrawn from the patient and the procedure terminated. ADVERSE EVENTS: There were no complications. IMPRESSIONS: 1. Small sessile polyp was found at the cecum; polypectomy was performed using snare cautery 2. There was moderate diverticulosis noted in the sigmoid colon 3. Small internal hemorrhoids RECOMMENDATIONS: 1. avoid NSAIDS for 2 weeks 2. follow-up: office 2 week(s) 3. Monitor for any evidence of rectal bleeding. 4. hemorrhoidal hygiene RECALL: Return in 3 week(s) for Colonoscopy. Inadequate prep - heavy stool burden Ronnell Luz DR eSigned: Ronnell Luz DR 02/14/2020 12:20 PM cc: CPT CODES: ICD9 CODES: PATIENT NAME: Heather Coon MR#: [id number]
[2020-02-14] MEDS ORDERED: MIDAZOLAM HCL 2 MG/2 ML INJ ONE (12:32)
[2020-02-14] MEDS ORDERED: levETIRAcetam 1,000 MG in NA CHLORIDE 0.9% 100 ML IV ONE (12:44)
[2020-02-14] MEDS: FENTANYL CITR 100 MCG/2 ML ONE ×2 (12:54→13:05)
[2020-02-14] MEDS ORDERED: ACETAMINOPHEN 500 MG TAB PO PRN (13:39)
--- NOTE | 2020-02-14 13:49 | P.HP ---
Certification for Inpatient Patient admitted to: Observation With expected LOS: <2 Midnights Patient will require the following post-hospital care: None Practitioner: I am a practitioner with admitting privileges, knowledge of patient current condition, hospital course, and medical plan of care. Services: Services provided to patient in accordance with Admission requirements found in Title 42 Section 412.3 of the Code of Federal Regulations <Joaquín Brandt - Last Filed: 02/14/20 14:13> Patient History Date of Service: 02/14/20 Reason for admission: Seizure History of Present Illness: 50-year-old female with a past medical history of seizures, COPD and hypertension and noncompliance with seizure/htn medications who was scheduled for a colonoscopy today as an outpatient with Dr. Luz. Patient was undergoing colonoscopy and had a seizure event. Patient was postictal in the postsurgical care unit. Hospitalist consulted for admission. Surgery requesting to start patient on Keppra and monitor Overnite. Home medications list reviewed: No - Past Medical/Surgical History Diabetic: No -: COPD -: HTN -: migraines -: depression -: anxiety -: OCD -: Insomnia -: Pancreatitis -: CAD -: Diverticulitis -: Herniated back disc -: hidtory od seizures -: 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 -: cholecystectomy -: 5 hand surgeries -: tonsilectomy Psychosocial/ Personal History: Lives at home - Family History Family History: Reviewed- Non-Contributory - Family History Mother -: Heart disease, Hypertension, GI disease, Diabetes, Liver disease, Kidney disease - Social History Smoking Status: Current every day smoker Counseled patient to stop smoking for: more than 10 minutes Smoking therapy provided: No (Does not want it) Patient receptive to therapy: No (no) Alcohol use: Yes CD- Drugs: No Caffeine use: Yes Place of Residence: Home <Joaquín Brandt - Last Filed: 02/14/20 14:13> Date of Service: 02/15/20 <Segundo Toledo - Last Filed: 02/15/20 16:40> Allergies fluoxetine HCl [From Prozac] Allergy (Severe, Verified 02/09/20 09:20) Anaphylaxis Green tea Allergy (Unknown, Uncoded 02/09/20 09:20) seizures Home Medications: Zonisamide 100 tab PO DAILY 12/10/19 Albuterol Inhaler [Ventolin Inhaler*] 2 puff IH BID PRN 01/22/20 Lisinopril/Hctz 1 tab PO BEDTIME 01/22/20 Albuterol Neb [Proventil 0.083% Neb Soln] 2.5 mg IH PRN PRN 02/09/20 levETIRAcetam [Keppra Tab] 500 mg PO BID 30 Days #60 tab 02/15/20 Review of Systems General: As per HPI Eyes: Unremarkable ENT: Unremarkable Respiratory: Unremarkable Cardiovascular: Unremarkable Gastrointestinal: Abdominal Pain Genitourinary: Unremarkable Musculoskeletal: Unremarkable Neurological: Seizures <Joaquín Brandt - Last Filed: 02/14/20 14:13> Physical Examination - Vital Signs Temperature: 97.2 F Blood Pressure: 158/84 Pulse: 73 Respirations: 18 Pulse Ox (%): 97 - Physical Exam General: Alert, In no apparent distress, Oriented x3 HEENT: Atraumatic, Normocephalic, PERRLA Neck: Supple, Other (Trachea midline) Respiratory: Clear to auscultation bilaterally, Normal air movement Cardiovascular: No edema, Normal pulses, Regular rate/rhythm, Normal S1 S2 Capillary refill: <2 Seconds Gastrointestinal: Normal bowel sounds, Soft and benign Musculoskeletal: No clubbing, No swelling, No contractures Integumentary: No rashes, No breakdown, No significant lesion, No tenderness/swe lling Neurological: Normal gait, Normal speech, Normal strength at 5/5 x4 extr, Normal tone - Studies Microbiology Data (last 24 hrs): 02/09/20 09:55 Nasopharnyx Coronavirus COVID-19 PCR - Final <Joaquín Brandt - Last Filed: 02/14/20 14:13> - Studies Laboratory Data (last 24 hrs) 02/15/20 05:11: APTT 29.5 02/15/20 05:11: WBC 8.9, Hgb 11.2 L, Hct 33.8 L, Plt Count 442 H 02/15/20 05:11: Sodium 141, Potassium 4.4, BUN 9, Creatinine 0.89, Glucose 84, Magnesium 2.4 <Segundo Toledo - Last Filed: 02/15/20 16:40> Assessment and Plan - Plan Impression: History of seizures with most recent seizure prior to admission during colonoscopy: Essential hypertension: Nicotine dependence: Plan: History of seizures with most recent seizure prior to admission during colonoscopy: Patient was giving a loading dose of 1 g of Keppra IV. Will continue IV Keppra at 500 mg b.i.d. pressure recommendations. Patient has not refilled her seizure medication and has a history of noncompliance. Will counseling center director. Will continue telemetry. Neurology consulted - Dr. Ireland. Will await further recommendations. Essential hypertension: Will resume all medication of lisinopril hydrochlorothiazide 20 mg/40 mg daily. Monitor blood pressure. Nicotine dependence: Patient states she smokes 1 pack of cigarettes per day. She does not want a nicotine patch and does not want therapy or counseling. Patient states she is not planning on quitting smoking. Discharge Plan: Home Plan to discharge in: 48 Hours - Advance Directives Does patient have a Living Will: No Does patient have a Durable POA for Healthcare: No - Code Status/Comfort Care Code Status Assessed: Yes Time Spent Managing Pts Care (In Minutes): 55 <Joaquín Brandt - Last Filed: 02/14/20 14:13> Physician Review Additional Text: Patient was seen and examined and findings were discussed on 02/14/2020 Agree with the assessment and plan as documented by the NOHELIA <Segundo Toledo - Last Filed: 02/15/20 16:40>
[2020-02-14] MEDS: NA CHLORIDE 0.9% 1,000 ML IV SCH ×2 (14:07→22:27)
[2020-02-14 14:24] VITALS: O2SAT 98; BMI 27.3
[2020-02-14] MEDS ORDERED: HYDROCODONE/APAP 5/325 MG TAB PO PRN (15:46)
[2020-02-14] MEDS: ONDANSETRON 4 MG/2 ML VIAL IV PRN ×2 (16:29→22:31)
[2020-02-14] MEDS: MORPHINE 2 MG/ML SYR IV PRN ×2 (17:25→22:30)
[2020-02-14] MEDS: levETIRAcetam 500 MG in NA CHLORIDE 0.9% 100 ML IV SCH (21:00)
[2020-02-15] MEDS: ONDANSETRON 4 MG/2 ML VIAL IV PRN (05:25)
[2020-02-15] MEDS: MORPHINE 2 MG/ML SYR IV PRN (05:25)
[2020-02-15 05:54] LABS: Basophils % 0.5 % (0-1.3); Hematocrit 33.8 % (36.0-45.0); Lymphocytes % 33.5 % (15.3-44.8); MPV 6.6 fL (7.6-11.3); RBC Red Blood Cell Count 4.18 M/uL (3.86-4.86)
[2020-02-15 06:13] LABS: Magnesium 2.4 mg/dL (1.8-2.4); Potassium 4.4 mmol/L (3.5-5.1); Thyroid Stimulating Hormone 0.513 uIU/mL (0.360-3.740)
[2020-02-15 07:28] LABS: Urine Appearance CLOUDY; Urine Bilirubin NEGATIVE (NEG); Urine Blood NEGATIVE (NEG); Urine Color YELLOW; Urine Glucose NEGATIVE (NEG); Urine Protein NEGATIVE (NEG); Urine pH 6.5 (5.0-7.0)
[2020-02-15 07:35] LABS: Barbiturates NEGATIVE (NEGATIVE); Benzodiazepines POSITIVE (NEGATIVE); Cocaine NEGATIVE (NEGATIVE); METHAMPHETAM NEGATIVE (NEGATIVE); Methadone NEGATIVE (NEGATIVE); Opiates POSITIVE (NEGATIVE); Phencyclidine NEGATIVE (NEGATIVE); THC Cannibis NEGATIVE (NEGATIVE)
[2020-02-15 07:36] LABS: Urine Microscopic Reflex ORDER UMIC
[2020-02-15 08:09] LABS: Urine Bacteria 20-50 /HPF (<20); Urine RBC <5 /HPF (NONE SEEN)
[2020-02-15 08:10] LABS: Urine Culture Reflex Order NOT NEEDED
[2020-02-15] MEDS: levETIRAcetam 500 MG in NA CHLORIDE 0.9% 100 ML IV SCH (09:00)
[2020-02-15] MEDS ORDERED: ENOXAPARIN 40 MG/0.4 ML SQ SCH (09:00)
--- NOTE | 2020-02-15 10:48 | P.PN ---
Subjective Date of Service: 02/15/20 Chief Complaint: Seizure Subjective: Improving (Patient feels well, no seizure since admission, eating well, no pain or other complaints) Physical Examination - Vital Signs Temperature: 97.4 F Blood Pressure: 122/69 Pulse: 53 Respirations: 18 Pulse Ox (%): 96 - Physical Exam General: Alert, In no apparent distress, Cooperative HEENT: Mucous membr. moist/pink Respiratory: Clear to auscultation bilaterally, Normal air movement Cardiovascular: Regular rate/rhythm Gastrointestinal: Soft and benign, Non-distended, No tenderness, No masses, No rebound, No guarding Neurological: Normal gait, Normal speech, Normal affect - Studies Laboratory Data (last 24 hrs) 02/15/20 05:11: APTT 29.5 02/15/20 05:11: WBC 8.9, Hgb 11.2 L, Hct 33.8 L, Plt Count 442 H 02/15/20 05:11: Sodium 141, Potassium 4.4, BUN 9, Creatinine 0.89, Glucose 84, Magnesium 2.4 Microbiology Data (last 24 hrs): 02/09/20 09:55 Nasopharnyx Coronavirus COVID-19 PCR - Final Assessment And Plan - Current Problems (Diagnosis) (1) Seizure Current Visit: Yes Status: Acute Plan: 50 year old woman who presented for colonoscopy, inadequate prep, had seizure after completion of case in endoscopy, recovered fully - tanesha Grijalva, Dr. Toledo and consulted, I personally discussed case with consultants - Patient feels well, states she was non-compliant with her seizure medication which likely contributed to her seizure post procedure - ok to MO home from surgical standpoint, Dr. Ireland states patient may follow up as outpatient as she has known seizure disorder for further workup
--- NOTE | 2020-02-15 12:44 | P.DS ---
Admission Date: 02/14/20 Discharge Date: 02/15/20 Reason for Admission: Seizure Consultations: Natty- surgery Brief History of Present Illness: 50-year-old female with a past medical history of seizures, COPD and hypertension and noncompliance with seizure/htn medications who was scheduled for a colonoscopy today as an outpatient with Dr. Luz. Patient was undergoing colonoscopy and had a seizure event. Patient was postictal in the postsurgical care unit. Hospitalist consulted for admission. Surgery requesting to start patient on Keppra and monitor Overnite. Hospital Course: Patient was admitted for a seizure after a colonoscopy. Patient was undergone colonoscopy with Dr. Luz when she had a seizure. Patient has a history of seizures and noncompliance with medications. Patient was observed Overnite. She had no seizures after admission. Patient had an initial dosing of 1000 mg IV while in the PACU. Patient was kept on telemetry with no abnormal rhythms noted Overnite. She was restarted on her Keppra 500 mg b.i.d. and has done well on medication. Patient is stable. She can be discharged home to follow up with surgery and her PCP. Patient also instructed to follow up with Dr. Ireland - neurology for continued dosing modification of Keppra if needed and any further workup. <Joaquín Brandt - Last Filed: 02/15/20 12:39> Admission Date: 02/14/20 Discharge Date: 02/15/20 <Segundo Toledo - Last Filed: 02/15/20 16:38> Disposition: ROUTINE DISCHARGE Vital Signs/Physical Exam: Temp Pulse Resp BP Pulse Ox 97.4 F 53 18 122/69 96 02/15/20 10:48 02/15/20 10:48 02/15/20 10:48 02/15/20 10:48 02/15/20 10:48 General: Alert, In no apparent distress, Oriented x3 HEENT: Atraumatic, Normocephalic, PERRLA Neck: Supple, Other (Trachea midline) Respiratory: Clear to auscultation bilaterally, Normal air movement Cardiovascular: No edema, Normal pulses, Regular rate/rhythm, Normal S1 S2 Capillary refill: <2 Seconds Gastrointestinal: Normal bowel sounds, Soft and benign, Non-distended Musculoskeletal: No clubbing, No swelling, No contractures Integumentary: No rashes, No breakdown, No significant lesion Neurological: Normal gait, Normal speech, Normal strength at 5/5 x4 extr, Normal tone Laboratory Data at Discharge: WBC 8.9 K/uL (4.3-10.9) 02/15/20 05:11 Hgb 11.2 g/dL (12.0-15.0) L 02/15/20 05:11 Hct 33.8 % (36.0-45.0) L 02/15/20 05:11 Plt Count 442 K/uL (152-406) H 02/15/20 05:11 APTT 29.5 SECONDS (21.7-34.4) 02/15/20 05:11 Sodium 141 mmol/L (136-145) 02/15/20 05:11 Potassium 4.4 mmol/L (3.5-5.1) 02/15/20 05:11 BUN 9 mg/dL (7-18) 02/15/20 05:11 Creatinine 0.89 mg/dL (0.55-1.3) 02/15/20 05:11 Glucose 84 mg/dL (74-106) 02/15/20 05:11 Magnesium 2.4 mg/dL (1.8-2.4) 02/15/20 05:11 <Joaquín Brandt - Last Filed: 02/15/20 12:39> Vital Signs/Physical Exam: Temp Pulse Resp BP Pulse Ox 97.3 F 83 18 163/86 H 98 02/15/20 12:00 02/15/20 12:00 02/15/20 12:00 02/15/20 12:00 02/15/20 12:00 Laboratory Data at Discharge: WBC 8.9 K/uL (4.3-10.9) 02/15/20 05:11 Hgb 11.2 g/dL (12.0-15.0) L 02/15/20 05:11 Hct 33.8 % (36.0-45.0) L 02/15/20 05:11 Plt Count 442 K/uL (152-406) H 02/15/20 05:11 APTT 29.5 SECONDS (21.7-34.4) 02/15/20 05:11 Sodium 141 mmol/L (136-145) 02/15/20 05:11 Potassium 4.4 mmol/L (3.5-5.1) 02/15/20 05:11 BUN 9 mg/dL (7-18) 02/15/20 05:11 Creatinine 0.89 mg/dL (0.55-1.3) 02/15/20 05:11 Glucose 84 mg/dL (74-106) 02/15/20 05:11 Magnesium 2.4 mg/dL (1.8-2.4) 02/15/20 05:11 <Segundo Toledo - Last Filed: 02/15/20 16:38> Patient Discharge Instructions: Patient to follow up with Dr. Ireland- neurology. Counseled patient on compliance with medication in particular her Keppra. Diet: Regular Activity: Ad geovanna Time spent managing pt's care (in minutes): 55 <Joaquín Brandt - Last Filed: 02/15/20 12:39> Physician Review: Patient Assessed, Agree with Above Assessment and Plan (Patient was seen and examined and findings were discussed Agree with the assessment and plan as documented by the NOHELIA) <Segundo Toledo - Last Filed: 02/15/20 16:38> Home Medications: Zonisamide 100 tab PO DAILY 12/10/19 Albuterol Inhaler [Ventolin Inhaler*] 2 puff IH BID PRN 01/22/20 Lisinopril/Hctz 1 tab PO BEDTIME 01/22/20 Albuterol Neb [Proventil 0.083% Neb Soln] 2.5 mg IH PRN PRN 02/09/20 levETIRAcetam [Keppra Tab] 500 mg PO BID 30 Days #60 tab 02/15/20 New Medications: levETIRAcetam [Keppra Tab] 500 mg PO BID 30 Days #60 tab Followup: Javier Ireland MD [ASSOCIATE-ACTIVE - CAN ADMIT] -
[2020-02-15] MEDS ORDERED: ALBUTEROL INHALER 60 PUFF/8 GM IH PRN (12:47)
[2020-02-15] MEDS ORDERED: ALBUTEROL 2.5 MG/3 ML NEB SOL IH PRN (12:47)
[2020-02-15 15:22] VITALS: BP 163/86; TEMP 97.3
[2020-02-15] MEDS ORDERED: HCTZ PO SCH (21:00)
[2020-02-15] MEDS ORDERED: levETIRAcetam 500 MG TAB PO SCH (21:00)
[2020-02-15] MEDS ORDERED: LISINOPRIL PO SCH (21:00)
[2020-02-16] MEDS ORDERED: ZONISAMIDE PO SCH (09:00)
--- NOTE | 2020-02-17 20:50 | CON ---
Reason For Consultation: Consultation called because of seizures. History Of Present Illness: Ms. Coon is a 50-year-old patient with history of seizures, COPD, hype rtension, and history of poor medication compliance, who had a colonoscopy done outpatient by Dr. Cate robles, and as she was coming out of anesthesia, she had a seizure. She was postictal following the se izure and Dr. Lzu requested consultation. The patient was actually then loaded with a gram of Ke ppra and then placed on IV and then placed on 500 mg twice daily. No additional seizure occurred. Past Medical History: As indicated. In addition, migraine, depression, anxiety, insomnia, pancreati tis, , coronary artery disease. Surgical History: Herniated disk with 3 fuse in the neck, cholecystectomy, multiple hand surgeries, tonsillectomy. Social History: Lives at home with family. Family History: Mother with heart disease, hypertension, diabetes, liver disease, kidney disease. P jude note that the patient is a daily smoker and does use alcohol and caffeinated beverage regularly . Allergies: FLUOXETINE AND GREEN TEA. Medications: At home, zonisamide 100 mg daily, albuterol inhaler 2 puffs twice daily, lisinopril and hydrochlorothiazide at bedtime, albuterol 0.083T nebulizer solution as needed, and now Ke ppra 500 mg twice daily. Review of Systems: Aside from the patient's seizures, there are no recent fevers, chills, nausea, vomiting, myalgias, ar thralgias, rash, headache, weight change, psychiatric complaints. No gastrointestinal or genitourina ry complaints. Physical Examination: Vital Signs: Blood pressure 122/69, pulse 53, respiratory rate 18, temperature 97.4, oxygen saturati on 96% on room air. Weight 154 pounds, height 5 feet 3 inches. General: Ms. Coon is resting comfortably in bed. She is in no acute distress. HEENT: She is normocephalic, atraumatic. Sclerae are anicteric. Oropharynx pink and moist. Neck: Supple. Chest: Clear. Heart: Regular. Extremities: Show no edema, cyanosis, or clubbing. Neurological: She is alert and oriented to situation, place, and person. Follows all commands appro priately. She has no focal cranial nerve deficits, motor, sensory, coordination, or gait deficits. Laboratory Studies: Complete blood count with differential essentially unremarkable. Hemoglobin sli ghtly low at 11.2. White blood cell count is normal. Coagulation panel is normal. Chemistries esse ntially normal with chloride slightly elevated at 110, calcium low at 8.2. Urinalysis shows 20-50 ep ithelial cells, 20-50 bacteria. She had positive benzodiazepine and opiate screen on the and is she is COVID-19 negative. Assessment: Ms. Coon is a 50-year-old patient with history of seizures and poor compliance with an tiepileptic medications. She has multiple comorbid conditions as listed. She had a seizure by bret jain out of colonoscopy. Plan: 1.Keppra 500 mg twice daily. In addition, she may continue the zonisamide 100 mg daily. 2.Importance of compliance with medication was stressed to the patient. 3.She may follow up with Dr. Ireland in clinic 1 month after discharge. DENNIS/JOSELYN Voice ID: [id number] Report ID: [id number]
== END 2020-02-15 13:14 | disposition home or self-care (01) ==
LOC: OR 10:34 → 2ND 13:04
PROVIDERS: ADMIT Surgery; ATTEND Surgery
PROC: 0DBH8ZX Excision of Cecum, Via Natural or Artificial Opening Endoscopic, Diagnostic (ICD-10-PCS; principal; 2020-02-14 13:00)
DX: Z12.11 Encounter for screening for malignant neoplasm of colon (principal); K63.5 Polyp of colon; K57.30 Diverticulosis of large intestine without perforation or abscess without bleeding; K64.8 Other hemorrhoids; G40.909 Epilepsy, unspecified, not intractable, without status epilepticus; Z91.14 Patient's other noncompliance with medication regimen; Z11.59 Encounter for screening for other viral diseases; J44.9 Chronic obstructive pulmonary disease, unspecified; I10 Essential (primary) hypertension; I25.10 Atherosclerotic heart disease of native coronary artery without angina pectoris; F32.9 Major depressive disorder, single episode, unspecified; F41.9 Anxiety disorder, unspecified; G47.00 Insomnia, unspecified; F17.210 Nicotine dependence, cigarettes, uncomplicated; Z79.899 Other long term (current) drug therapy
CPT/HCPCS: 85025; 80048; 36415; 83735; 80307 ×8; 88305; 85730; 84443; 84439; 45385; U0002; J2704; J3010; J2270 ×3; J1953 ×3; J7120; J7030 ×2; J2405 ×4; G0379; G0378 ×3; 81003; 81015; J2250

== ENCOUNTER 2020-05-15 20:59 | Observation (INO) | payer OTHER ==
[2020-05-15] MEDS ORDERED: ONDANSETRON 4 MG/2 ML VIAL ONE ×2 (21:32→23:18)
[2020-05-15] MEDS ORDERED: MORPHINE 4 MG/ML SYR ONE (21:32)
[2020-05-15 21:40] LABS: Absolute Lymphocytes (CBC) 2.3 K/uL (0.7-4.9); Basophils % 1.2 % (0-1.3); Hematocrit 36.8 % (36.0-45.0); MPV 6.4 fL (7.6-11.3); RBC Red Blood Cell Count 4.57 M/uL (3.86-4.86)
[2020-05-15 21:43] LABS: Protime INR 0.98
[2020-05-15 22:04] LABS: ALT/SGPT 13 U/L (12-78); AST/SGOT 10 U/L (15-37); Albumin 3.5 g/dL (3.4-5.0); Alkaline Phosphatase 66 U/L (45-117); BUN Blood Urea Nitrogen 9 mg/dL (7-18); Bicarbonate 27 mmol/L (21-32); Bilirubin Direct < 0.1 mg/dL (0-0.2); Bilirubin Total 0.3 mg/dL (0.2-1.0); Glucose Level 93 mg/dL (74-106); Lipase 119 U/L (73-393); Magnesium 2.2 mg/dL (1.8-2.4); NT PRO-BNP 347 pg/mL (<125); Potassium 3.3 mmol/L (3.5-5.1); Protein, Total 6.9 g/dL (6.4-8.2); Sodium Level 141 mmol/L (136-145); Troponin (Emerg Dept Use Only) < 0.02 ng/mL (0.0-0.045)
[2020-05-15] MEDS ORDERED: NITROGLYCERIN 0.4 MG/TAB SL ONE (22:22)
--- NOTE | 2020-05-16 00:06 | EDPHYS ---
Physician Documentation [facility] Name: Heather Coon Age: 50 yrs Sex: Female : 1970 Arrival Date: 05/15/2020 Time: 21:00 Bed 28 Private MD: ED Physician Kavon Jordan HPI: 05/15 21:39 This 50 yrs old Female presents to ER via EMS with complaints of Chest Pain. pm1 21:39 The patient or guardian reports chest pain that is located primarily in the mid-sternal pm1 area. 21:39 Onset: today. The pain radiates to the left arm. Associated signs and symptoms: pm1 Pertinent negatives: abdominal pain, headache, nausea, palpitations, shortness of breath, vomiting. The chest pain is described as a heaviness, a pressure. Duration: The patient or guardian reports a single episode, that is still ongoing, but improving. Modifying factors: The symptoms are alleviated by NTG, X1. the symptoms are aggravated by activity. Severity of pain: in the emergency department the pain has improved is a 7 / 10. EMS care prior to arrival includes: nitroglycerin, x 1. Patient reports LLQ pain for the past three days. History of diverticulitis. No vomiting or diarrhea. Today prior to arrival she reports chest pressure with radiation to left arm. 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 - Social history:: Smoking status: Patient reports the use of cigarette tobacco products, smokes one-half pack cigarettes per day, Patient uses alcohol, but reports only rare drinking. street drugs, marijuana. ROS: 21:39 Constitutional: Negative for fever, chills, and weight loss, Neck: Negative for injury, pm1 pain, and swelling. 21:39 Respiratory: Negative for shortness of breath, cough, wheezing, and pleuritic chest pain. 21:39 Back: Negative for injury and pain, : Negative for injury, bleeding, discharge, and swelling, MS/Extremity: Negative for injury and deformity, Skin: Negative for injury, rash, and discoloration, Neuro: Negative for headache, weakness, numbness, tingling, and seizure. 21:39 Cardiovascular: Positive for chest pain, Negative for edema, palpitations. 21:39 Abdomen/GI: Positive for abdominal pain, nausea, Negative for vomiting, diarrhea, constipation. Exam: 21:39 Constitutional: This is a well developed, well nourished patient who is awake, alert, pm1 and in no acute distress. Head/Face: Normocephalic, atraumatic. Chest/axilla: Normal chest wall appearance and motion. Nontender with no deformity. No lesions are appreciated. Cardiovascular: Regular rate and rhythm with a normal S1 and S2. No gallops, murmurs, or rubs. Normal PMI, no JVD. No pulse deficits. Respiratory: Lungs have equal breath sounds bilaterally, clear to auscultation and percussion. No rales, rhonchi or wheezes noted. No increased work of breathing, no retractions or nasal flaring. 21:39 Back: No spinal tenderness. No costovertebral tenderness. Full range of motion. Skin: Warm, dry with normal turgor. Normal color with no rashes, no lesions, and no evidence of cellulitis. MS/ Extremity: Pulses equal, no cyanosis. Neurovascular intact. Full, normal range of motion. 21:39 Abdomen/GI: Inspection: obese Palpation: soft, in all quadrants, mild abdominal tenderness, in the left lower quadrant. 21:39 Neuro: Exam negative for acute changes, Orientation: is normal, Mentation: is normal, Motor: is normal, moves all fours. Vital Signs: 21:11 BP 134 / 91; Pulse 98; Resp 18 S; Temp 99.1(O); Pulse Ox 98% on R/A; Pain 7/10; bb 22:11 BP 121 / 81; Pulse 95; Resp 17 S; Pulse Ox 97% on R/A; Pain 4/10; jd3 23:09 BP 121 / 94; Pulse 72; Resp 17 S; Pulse Ox 98% on R/A; jd3 MDM: 21:14 Patient medically screened. pm1 23:10 Counseling: I had a detailed discussion with the patient and/or guardian regarding: the pm1 historical points, exam findings, and any diagnostic results supporting the discharge/admit diagnosis, lab results, the need for further work-up and treatment in the hospital. 23:45 Physician consultation: Jose FRANCIS regarding admission, patient's condition, in pm1 the emergency department to see patient at 23:45. 23:57 Data reviewed: vital signs. Data interpreted: Pulse oximetry: on room air is 98 %. pm1 Interpretation: normal. 05/15 21:13 Order name: Basic Metabolic Panel; Complete Time: 22:13 [facility] 05/15 21:13 Order name: CBC with Diff; Complete Time: 21:53 [facility] 05/15 21:13 Order name: LFT's; Complete Time: 22:13 [facility] 05/15 21:13 Order name: Magnesium; Complete Time: 22:13 [facility] 05/15 21:13 Order name: NT PRO-BNP; Complete Time: 22:13 [facility] 05/15 21:13 Order name: PT-INR; Complete Time: 21:53 [facility] 05/15 21:13 Order name: Troponin (emerg Dept Use Only); Complete Time: 22:13 [facility] 05/15 21:38 Order name: Lipase; Complete Time: 22:13 [facility] 05/16 01:39 Order name: COVID-19 rr5 05/16 01:52 Order name: CORONAVIRUS [facility] 05/16 03:06 Order name: SARS-COV-2 RT PCR; Complete Time: 19:28 [facility] 05/16 04:51 Order name: CBC with Automated Diff; Complete Time: 19:28 [facility] 05/16 05:15 Order name: Basic Metabolic Panel; Complete Time: 19:28 [facility] 05/15 21:13 Order name: XRAY Chest (1 view); Complete Time: 19:28 [facility] 05/15 21:13 Order name: EKG; Complete Time: 21:13 [facility] 05/15 21:13 Order name: Cardiac monitoring; Complete Time: 21:24 [facility] 05/15 21:25 Order name: CT Chest, Abdomen, Pelvis - W/Contrast; Complete Time: 19:28 pm1 05/16 05:15 Order name: Lipid Profile; Complete Time: 19:28 [facility]IN 05/16 05:15 Order name: T4 Free; Complete Time: : EDMS 05/16 05:15 Order name: Magnesium; Complete Time: : EDMS 05/16 05:15 Order name: Thyroid Stimulating Hormone; Complete Time: : EDMS 05/16 05:16 Order name: Troponin I; Complete Time: : EDMS 05/16 06:51 Order name: Urinalysis; Complete Time: : EDMS 05/16 07:15 Order name: Diet Heart Healthy; Complete Time: 07:15 ph 05/15 21:13 Order name: EKG - Nurse/Tech; Complete Time: 21:25 ar5 05/15 21:13 Order name: IV Saline Lock; Complete Time: 21:24 ar5 05/15 21:13 Order name: Labs collected and sent; Complete Time: 21:24 ar5 05/15 21:13 Order name: O2 Per Protocol; Complete Time: 21:24 ar5 05/15 21:13 Order name: O2 Sat Monitoring; Complete Time: :24 ar5 Administered Medications: 21:24 Drug: Zofran (Ondansetron) 4 mg Route: IVP; Site: left antecubital; jd3 21:24 Drug: morphine 4 mg Route: IVP; Site: left antecubital; jd3 22:10 Drug: Nitroglycerin 0.4 mg Route: Sublingual; jd3 23:08 Drug: Zofran (Ondansetron) 4 mg Route: IVP; Site: left antecubital; jd3 05/16 00:04 Drug: Bentyl 20 mg Route: IM; Site: right deltoid; jd3 Disposition: 01:25 Co-signature as Attending Physician, Kavon Jordan MD. pkl Disposition: 05/16/20 00:05 Hospitalization ordered by Pedro Elizabeth for Observation. Preliminary diagnosis are Chest pain, unspecified, Unspecified abdominal pain. - Bed requested for [facility] ER HOLD. - Status is Observation. ss - Condition is Stable. - Problem is new. - Symptoms have improved. Signatures: Dispatcher [employer] EDIN Kavon Jordan MD MD pkLisa Campos RN RN bb Smirch, Shelby, RN RN ss Susan Ordonez RN RN tl1 Kendall Guerrero, INSULATION BLANKET MAKER INSULATION BLANKET MAKER pm1 Gilles Myrick, RN RN jd3 Alessandra Marin ar5 Corrections: (The following items were deleted from the chart) 05/15 21:38 21:25 LIPASE+C.LAB.BRZ ordered. EDIN EDMS 05/16 00:32 00:05 Hospitalization Ordered by Pedro Elizabeth DO for Observation. Preliminary tl1 diagnosis is Chest pain, unspecified; Unspecified abdominal pain. Bed requested for Telemetry/MedSurg (observation). Status is Observation. Condition is Stable. Problem is new. Symptoms have improved. pm1 06:59 00:32 05/16/2020 00:05 Hospitalization Ordered by Gloster Germaines DO for Observation. tl1 Preliminary diagnosis is Chest pain, unspecified; Unspecified abdominal pain. Bed requested for [facility] ER HOLD. Status is Observation. Condition is Stable. Problem is new. Symptoms have improved. tl1 07:54 06:59 05/16/2020 00:05 Hospitalization Ordered by Pedro Glenn KRAFT for Observation. ss Preliminary diagnosis is Chest pain, unspecified; Unspecified abdominal pain. Bed requested for Telemetry/MedSurg (observation). Status is Observation. Condition is Stable. Problem is new. Symptoms have improved. tl1 07:54 07:54 05/16/2020 00:05 Hospitalization Ordered by Pedro Germaines for Observation. ss Preliminary diagnosis is Chest pain, unspecified; Unspecified abdominal pain. Bed requested for Telemetry/MedSurg (observation). Status is Observation. Condition is Stable. Problem is new. Symptoms have improved. ss 09:00 07:54 05/16/2020 00:05 Hospitalization Ordered by Pedro Glenn KRAFT for Observation. ss Preliminary diagnosis is Chest pain, unspecified; Unspecified abdominal pain. Bed requested for [facility] ER HOLD. Status is Observation. Condition is Stable. Problem is new. Symptoms have improved. ss
--- NOTE | 2020-05-16 00:06 | ER ---
Nurse's Notes [facility] Name: Heather Coon Age: 50 yrs Sex: Female : 1970 Arrival Date: 05/15/2020 Time: 21:00 Bed 28 Private MD: Diagnosis: Chest pain, unspecified;Unspecified abdominal pain Presentation: 05/15 21:11 Chief complaint: EMS states: They were toned out for pt with sudden onset of chest pain bb radiating to her left arm initial pain was 04/28 EMS started an IV and gave Nitro 0.4 mg SL. Coronavirus screen: At this time, the client does not indicate any symptoms associated with coronavirus-19. Ebola Screen: No symptoms or risks identified at this time. Initial Sepsis Screen: Does the patient meet any 2 criteria? No. Patient's initial sepsis screen is negative. Does the patient have a suspected source of infection? No. Patient's initial sepsis screen is negative. Risk Assessment: Do you want to hurt yourself or someone else? Patient reports no desire to harm self or others. Onset of symptoms was May 15, 2020. 21:11 Method Of Arrival: EMS: [facility] bb 21:11 Acuity: ANDER 3 bb 21:21 Care prior to arrival: Medication(s) given: Nitroglycerin, 0.4 mg SL IV initiated. 20 bb GA, in the left antecubital area. 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 - Social history:: Smoking status: Patient reports the use of cigarette tobacco products, smokes one-half pack cigarettes per day, Patient uses alcohol, but reports only rare drinking. street drugs, marijuana. Screenin:21 Abuse screen: Denies threats or abuse. Nutritional screening: No deficits noted. bb Tuberculosis screening: No symptoms or risk factors identified. Fall Risk None identified. Assessment: 21:21 General: Appears in no apparent distress. Behavior is calm, cooperative. Pain: bb Complains of pain in chest Pain radiates to left arm Pain currently is 7 out of 10 on a pain scale. Pain began suddenly. Neuro: Level of Consciousness is awake, alert, obeys commands, Oriented to person, place, time, situation. Cardiovascular: Heart tones present Capillary refill < 3 seconds Patient's skin is warm and dry. Pulses are all present. Edema is absent. Rhythm is sinus rhythm. Respiratory: Airway is patent Respiratory effort is even, unlabored, Respiratory pattern is regular. GI: No deficits noted. No signs and/or symptoms were reported involving the gastrointestinal system. Derm: Skin is pink, warm \T\ dry. Musculoskeletal: Circulation, motion, and sensation intact. 22:11 Reassessment: Patient appears in no apparent distress at this time. Patient and/or jd3 family updated on plan of care and expected duration. Pain level reassessed. Patient is alert, oriented x 3, equal unlabored respirations, skin warm/dry/pink. Patient states feeling better. 23:08 Reassessment: Patient appears in no apparent distress at this time. Patient and/or jd3 family updated on plan of care and expected duration. Pain level reassessed. Patient is alert, oriented x 3, equal unlabored respirations, skin warm/dry/pink. pt reporting nausea, provider notified. Vital Signs: 21:11 BP 134 / 91; Pulse 98; Resp 18 S; Temp 99.1(O); Pulse Ox 98% on R/A; Pain 7/10; bb 22:11 BP 121 / 81; Pulse 95; Resp 17 S; Pulse Ox 97% on R/A; Pain 4/10; jd3 23:09 BP 121 / 94; Pulse 72; Resp 17 S; Pulse Ox 98% on R/A; jd3 ED Course: 21:00 Patient arrived in ED. am2 21:14 Kendall Guerrero NP is PHCP. pm1 21:14 Kavon Jordan MD is Attending Physician. pm1 21:14 Triage completed. bb 21:17 Arm band placed on Patient placed in an exam room, on a stretcher, on youth nutritional monitor, bb on pulse oximetry. EKG completed in triage. Results shown to MD. 21:21 Patient has correct armband on for positive identification. Placed in gown. Bed in low bb position. Call light in reach. Side rails up X2. monitor worker on. Pulse ox on. NIBP on. Warm blanket given. 21:21 Maintain EMS IV. Dressing intact. Site clean \T\ dry. Patient maintains SpO2 saturation bb greater than 95% on room air. 21:23 Gilles Myrick, BETH is Primary Nurse. jd3 22:03 XRAY Chest (1 view) In Process Unspecified. EDMS 22:35 CT Chest, Abdomen, Pelvis - W/Contrast In Process Unspecified. EDMS 05/16 00:01 Pedro Elizabeth DO is Hospitalizing Provider. pm1 00:06 Report given to Lisa CAMPOS. jd3 Administered Medications: 05/15 21:24 Drug: Zofran (Ondansetron) 4 mg Route: IVP; Site: left antecubital; jd3 21:24 Drug: morphine 4 mg Route: IVP; Site: left antecubital; jd3 22:10 Drug: Nitroglycerin 0.4 mg Route: Sublingual; jd3 23:08 Drug: Zofran (Ondansetron) 4 mg Route: IVP; Site: left antecubital; jd3 05/16 00:04 Drug: Bentyl 20 mg Route: IM; Site: right deltoid; jd3 Outcome: 00:05 Decision to Hospitalize by Provider. pm1 09:00 Patient left the ED. ss Signatures: Dispatcher [employer] EDPR Lisa Kauffman RN RN Rocío Canas RN RN Kendall Guerrero, RUBY INTELLIGENCE OPERATIONS SPECIALIST pm1 Freida Dicekrson am2 Gilles Myrick, BETH RN jd3 Corrections: (The following items were deleted from the chart) 05/15 22:11 22:11 BP 121 / 81; Pulse 95bpm; Resp 17bpm; Spontaneous; Pulse Ox 97% RA; jd3 jd3
--- NOTE | 2020-05-16 00:10 | P.HP ---
Certification for Inpatient Patient admitted to: Observation With expected LOS: <2 Midnights Patient will require the following post-hospital care: None Practitioner: I am a practitioner with admitting privileges, knowledge of patient current condition, hospital course, and medical plan of care. Services: Services provided to patient in accordance with Admission requirements found in Title 42 Section 412.3 of the Code of Federal Regulations <Jose Izquierdo - Last Filed: 05/16/20 00:04> Patient admitted to: Observation With expected LOS: <2 Midnights <AdryancollinNhanPedro - Last Filed: 05/16/20 12:52> Patient History Date of Service: 05/16/20 Primary Care Provider: None Neurology-Dr. Ireland, General surgery-Dr. Luz Reason for admission: Chest Pain History of Present Illness: 42-year-old female with history of seizures, myocardial infarction, COPD, diverticulitis presents emergency department for left lower quadrant abdominal pain as well as chest pain. Patient reports that she has had left lower quadrant abdominal pain over the course of the last 3 or 4 days increasing in severity without nausea, vomiting, diarrhea. Patient also reports that approximately 1999 last night she began having chest pain while at rest, pain was described as substernal radiating to left arm and pressure-like as if somebody was Sitting on her chest. Patient reports that the pain was relieved by nitroglycerin administered by EMS. Patient reports that she had myocardial infarction in 2006 that was medically managed and she never had a heart catheterization at that time. Patient also had cardiac workup in 2013 with stress test and echocardiogram which were unremarkable. Patient has not since had cardiac workup. Patient's workup in the emergency department was relatively unremarkable, mildly hypokalemic with potassium 3.3 troponin negative, EKG without acute findings, chest x-ray without acute findings. Patient also had CT scan of the abdomen and pelvis with contrast which was unremarkable. - Past Medical/Surgical History Diabetic: No -: COPD -: Hypertension -: migraines -: Depression with anxiety -: Pancreatitis -: Coronary artery disease-prior myocardial infarction -: Diverticulitis -: Seizure disorder -: 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 -: cholecystectomy -: 5 hand surgeries -: tonsilectomy Psychosocial/ Personal History: Lives at home - Family History Mother -: Heart disease, Hypertension, GI disease, Diabetes, Liver disease, Kidney disease - Social History Smoking Status: Current every day smoker Counseled patient to stop smoking for: less than 10 minutes Smoking therapy provided: Yes Alcohol use: Yes CD- Drugs: No Caffeine use: Yes <TimboJose - Last Filed: 05/16/20 00:04> Date of Service: 05/16/20 Home medications list reviewed: Yes - Social History Place of Residence: Home <Pedro Elizabeth - Last Filed: 05/16/20 12:52> Allergies fluoxetine HCl [From Prozac] Allergy (Severe, Verified 02/09/20 09:20) Anaphylaxis Green tea Allergy (Unknown, Uncoded 02/09/20 09:20) seizures Home Medications: Zonisamide 100 tab PO DAILY 12/10/19 Albuterol Inhaler [Ventolin Inhaler*] 2 puff IH BID PRN 01/22/20 Lisinopril/Hctz 1 tab PO BEDTIME 01/22/20 Albuterol Neb [Proventil 0.083% Neb Soln] 2.5 mg IH PRN PRN 02/09/20 levETIRAcetam [Keppra*] 500 mg PO BID 30 Days #60 tab MDD 1500 02/15/20 Pantoprazole [Protonix Tab] 40 mg PO DAILY #30 tab 05/16/20 Review of Systems 10-point ROS is otherwise unremarkable Cardiovascular: Chest Pain Gastrointestinal: Abdominal Pain <Jose Izquierdo - Last Filed: 05/16/20 00:04> Physical Examination - Physical Exam General: Alert, In no apparent distress, Oriented x3 HEENT: Atraumatic, Normocephalic, PERRLA Neck: Supple Respiratory: Clear to auscultation bilaterally, Normal air movement Cardiovascular: No edema, Regular rate/rhythm, Normal S1 S2 Capillary refill: <2 Seconds Gastrointestinal: Normal bowel sounds, Tenderness (Mild abdominal tenderness to the left lower quadrant) Musculoskeletal: No contractures, No erythema, No tenderness Integumentary: No significant lesion, No tenderness/swelling, No erythema Neurological: Normal speech, Normal strength at 5/5 x4 extr, Normal tone, Sensation intact - Studies Laboratory Data (last 24 hrs) 05/15/20 21:25: Lipase Cancelled 05/15/20 21:20: PT 11.6, INR 0.98 05/15/20 21:20: WBC 7.8, Hgb 12.5, Hct 36.8, Plt Count 417 H 05/15/20 21:20: Sodium 141, Potassium 3.3 L, BUN 9, Creatinine 0.90, Glucose 93, Magnesium 2.2, Total Bilirubin 0.3, AST 10 L, ALT 13, Alkaline Phosphatase 66, Lipase 119 <Jose Izquierdo - Last Filed: 05/16/20 00:04> - Studies Laboratory Data (last 24 hrs) 05/15/20 21:25: Lipase Cancelled 05/15/20 21:20: PT 11.6, INR 0.98 05/15/20 21:20: WBC 7.8, Hgb 12.5, Hct 36.8, Plt Count 417 H 05/15/20 21:20: Sodium 141, Potassium 3.3 L, BUN 9, Creatinine 0.90, Glucose 93, Magnesium 2.2, Total Bilirubin 0.3, AST 10 L, ALT 13, Alkaline Phosphatase 66, Lipase 119 <Pedro Elizabeth - Last Filed: 05/16/20 12:52> Assessment and Plan - Plan Assessment Chest pain rule out ACS Hypertension Seizure disorder COPD Plan Chest pain rule out ACS: NPO after midnight, cardiology consult, trend troponins, monitor on telemetry. Aspirin daily, beta-jennifer therapy, p.r.n. nitroglycerin and morphine. DVT prophylaxis Lovenox 40 mg subcutaneous once daily. Hypertension: Patient not currently taking any medications for blood pressure although she was diagnosed with hypertension, will continue to monitor blood pressure throughout this hospitalization. Will initiate beta-jennifer therapy with hold parameters. Seizure disorder: Continue Keppra 1000 mg daily and 500 mg nightly COPD: P.r.n. albuterol inhaler. Discharge Plan: Home Plan to discharge in: 24 Hours - Advance Directives Does patient have a Living Will: No Does patient have a Durable POA for Healthcare: No - Code Status/Comfort Care Code Status Assessed: Yes (Full code) Critical Care: No Time Spent Managing Pts Care (In Minutes): 55 <Jose Izquierdo - Last Filed: 05/16/20 00:04> - Plan Case discussed in detail with nurse practitioner. Agree with evaluation in plan of care. Patient to be discharged today. Case discussed with Cardiology. Please see discharge summary for details. <Pedro Elizabeth - Last Filed: 05/16/20 12:52>
[2020-05-16] MEDS ORDERED: DICYCLOMINE HCL 20 MG/2 ML AMP IM ONE (00:14)
[2020-05-16] MEDS ORDERED: ACETAMINOPHEN 500 MG TAB PO PRN (01:26)
[2020-05-16] MEDS ORDERED: MORPHINE 2 MG/ML SYR IV PRN (01:26)
[2020-05-16] MEDS ORDERED: NITROGLYCERIN 0.4 MG/TAB SL PRN (01:26)
[2020-05-16] MEDS ORDERED: ALBUTEROL 2.5 MG/3 ML NEB SOL NEB PRN (01:26)
[2020-05-16] MEDS ORDERED: IPRATROPIUM BROM 0.5MG/2.5ML NEB PRN (01:26)
[2020-05-16] MEDS ORDERED: ONDANSETRON 4 MG/2 ML VIAL IV PRN (01:26)
[2020-05-16] MEDS ORDERED: MORPHINE 2 MG/ML SYR ONE (01:41)
[2020-05-16 02:11] VITALS: BMI 28.3
[2020-05-16 04:40] LABS: Absolute Lymphocytes (CBC) 2.3 K/uL (0.7-4.9); Basophils % 1.4 % (0-1.3); Hematocrit 37.8 % (36.0-45.0); Lymphocytes % 36.6 % (15.3-44.8); MPV 6.7 fL (7.6-11.3); RBC Red Blood Cell Count 4.65 M/uL (3.86-4.86)
[2020-05-16 05:14] LABS: Magnesium 2.3 mg/dL (1.8-2.4); Potassium 3.7 mmol/L (3.5-5.1); Thyroid Stimulating Hormone 2.61 uIU/mL (0.360-3.740)
[2020-05-16] MEDS ORDERED: METOPROLOL TAR 25 MG TAB ONE (05:49)
[2020-05-16] MEDS ORDERED: METOPROLOL TAR 25 MG TAB PO SCH (06:00)
[2020-05-16] MEDS ORDERED: POTASSIUM 25 MEQ EFFERV TAB PO ONE (06:29)
[2020-05-16] MEDS ORDERED: ONDANSETRON 4 MG/2 ML VIAL ONE (06:36)
[2020-05-16] MEDS ORDERED: POTASSIUM 25 MEQ EFFERV TAB ONE (06:43)
[2020-05-16] MEDS ORDERED: NA CHLORIDE 0.9% 250 ML ONE (06:46)
[2020-05-16 06:47] LABS: Urine Appearance CLEAR; Urine Bilirubin NEGATIVE (NEG); Urine Blood NEGATIVE (NEG); Urine Color YELLOW; Urine Glucose NEGATIVE (NEG); Urine Protein NEGATIVE (NEG); Urine Specific Gravity >=1.030 (1.005-1.030); Urine Urobilinogen 0.2 mg/dL (0.2-1.0); Urine pH 6.5 (5.0-7.0)
[2020-05-16] MEDS ORDERED: KCL 20 MEQ/100 mL IVPB 20 MEQ/100 ML BAG IV ONE (06:47)
[2020-05-16 06:50] LABS: Urine Microscopic Reflex NO UMIC
[2020-05-16] MEDS ORDERED: KCL 20 MEQ/100 mL IVPB 20 MEQ/100 ML BAG IV SCH (07:00)
--- NOTE | 2020-05-16 07:20 | EKG ---
Test Date: 2020-05-15 Test Time: 21:06:56 Kitchen Bath Designer: CHARO MEASUREMENT RESULTS: Intervals: Rate: 74 CT: 132 QRSD: 92 QT: 398 QTc: 441 [place]: P: 13 CT: 132 QRS: 104 T: 36 INTERPRETIVE STATEMENTS: Normal sinus rhythm Rightward axis Borderline ECG Compared to ECG 10/12/2019 12:13:08 No significant changes Electronically Signed On 05-16-20 07:19:34 CDT by Migel Warren
--- NOTE | 2020-05-16 08:50 | P.DS ---
Admission Date: 05/16/20 Discharge Date: 05/16/20 Primary Care Provider: PCP-None; Neurology-Dr. Ireland, General surgery-Dr. Luz Disposition: ROUTINE DISCHARGE Discharge Condition: GOOD Reason for Admission: Chest Pain Consultations: Cardiology-Dr. Warren Procedures: CT scan: No acute abnormalities. stable 3.2 left adrenal mass likely adenoma. suspect GERD. 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 Patient presented with chest pain and abdominal pain. Patient had CT scan showing no acute changes. Patient also with increase anxiety. Patient admitted for further evaluation and observation. Hospital Course: Patient presented with chest pain and abdominal pain. Patient was admitted for further evaluation and observation. CT scan showed no acute finding. Cardiac enzymes unremarkable. Cardiology was consulted to further evaluate. Patient reports history of CAD. Cardiology recommends no further cardiac intervention at this time. Recommend follow up with cardiology within 1 week to follow up her care. Cardiology will make arrangements for cardiac stress test to be done as an outpatient. Patient with history of seizure disorder, COPD, and anxiety. At discharge patient will continue with her current medications including her anti seizure medication. Recommend follow up with neurology as directed. Patient with mild elevated triglyceride level. Recommend fish oil 1000 mg 1 pill twice daily. Recommend to recheck fasting lipid panel in 4-6 weeks to monitor progress. Further adjustment in medication can be done by her PCP. Patient may have underlying GERD. At discharge will provide Protonix 40 mg daily. If symptoms persist patient would benefit with GI evaluation as an outpatient. Education on GERD will be provided. Patient may require EGD in the future to further evaluate. CT scan also revealed a 3.2 cm left adrenal mass this is likely an adenoma. This appears benign. Patient with hypertension. Blood pressure remained stable. At discharge she may continue with her current medication. Recommend to maintain blood pressure less than 130/80. Further adjustment may be required. This can be done with the help of her PCP. Vital Signs/Physical Exam: Temp Pulse Resp BP Pulse Ox 97.5 F 71 19 121/78 99 05/16/20 04:00 05/16/20 06:00 05/16/20 06:00 05/16/20 06:00 05/16/20 06:00 General: Alert, In no apparent distress, Oriented x3, Cooperative HEENT: Atraumatic Neck: Supple Respiratory: Clear to auscultation bilaterally, Normal air movement Cardiovascular: Normal pulses, Regular rate/rhythm Gastrointestinal: Normal bowel sounds, Soft and benign, Non-distended, No tenderness, No masses, No rebound, No guarding Integumentary: No tenderness/swelling, No erythema, No warmth, No cyanosis Neurological: Normal speech, Normal strength at 5/5 x4 extr, Normal tone, Abnormal affect (Mild anxiety) Laboratory Data at Discharge: WBC 6.3 K/uL (4.3-10.9) D 05/16/20 04:23 Hgb 12.5 g/dL (12.0-15.0) 05/16/20 04:23 Hct 37.8 % (36.0-45.0) 05/16/20 04:23 Plt Count 394 K/uL (152-406) 05/16/20 04:23 PT 11.6 SECONDS (9.5-12.5) 05/15/20 21:20 INR 0.98 05/15/20 21:20 Sodium 141 mmol/L (136-145) 05/16/20 04:23 Potassium 3.7 mmol/L (3.5-5.1) 05/16/20 04:23 BUN 8 mg/dL (7-18) 05/16/20 04:23 Creatinine 0.78 mg/dL (0.55-1.3) 05/16/20 04:23 Glucose 87 mg/dL (74-106) 05/16/20 04:23 Magnesium 2.3 mg/dL (1.8-2.4) 05/16/20 04:23 Total Bilirubin 0.3 mg/dL (0.2-1.0) 05/15/20 21:20 AST 10 U/L (15-37) L 05/15/20 21:20 ALT 13 U/L (12-78) 05/15/20 21:20 Alkaline Phosphatase 66 U/L (45-117) 05/15/20 21:20 Troponin I < 0.02 ng/mL (0.0-0.045) 05/16/20 04:23 Triglycerides 164 mg/dL (<150) H 05/16/20 04:23 Cholesterol 177 mg/dL (<200) 05/16/20 04:23 HDL Cholesterol 39 mg/dL (40-60) L 05/16/20 04:23 Cholesterol/HDL Ratio 4.54 05/16/20 04:23 Lipase Cancelled 05/15/20 21:25 Home Medications: RX: Zonisamide 100 tab PO DAILY 12/10/19 Lisinopril/Hctz 1 tab PO BEDTIME 01/22/20 RX: Albuterol Inhaler [Ventolin Inhaler*] 2 puff IH BID PRN 01/22/20 RX: Albuterol Neb [Proventil 0.083% Neb Soln] 2.5 mg IH PRN PRN 02/09/20 RX: levETIRAcetam [Keppra*] 500 mg PO BID 30 Days #60 tab MDD 1500 02/15/20 Pantoprazole [Protonix Tab] 40 mg PO DAILY #30 tab 05/16/20 New Medications: Pantoprazole [Protonix Tab] 40 mg PO DAILY #30 tab Patient Discharge Instructions: 1. Recommend follow up with PCP in 1 week to follow up this hospitalization. 2. Patient presented with chest pain and abdominal pain. Patient was admitted for further evaluation and observation. CT scan showed no acute finding. Cardiac enzymes unremarkable. Cardiology was consulted to further evaluate. Patient reports history of CAD. Cardiology recommends no further cardiac intervention at this time. Recommend follow up with cardiology within 1 week to follow up her care. Cardiology will make arrangements for cardiac stress test to be done as an outpatient. 3. Patient with history of seizure disorder, COPD, and anxiety. At discharge patient will continue with her current medications including her anti seizure medication. Recommend follow up with neurology as directed. 4. Patient with mild elevated triglyceride level. Recommend fish oil 1000 mg 1 pill twice daily. Recommend to recheck fasting lipid panel in 4-6 weeks to monitor progress. Further adjustment in medication can be done by her PCP. 5. Patient may have underlying GERD. At discharge will provide Protonix 40 mg daily. If symptoms persist patient would benefit with GI evaluation as an outpatient. Education on GERD will be provided. Patient may require EGD in the future to further evaluate. 6. CT scan also revealed a 3.2 cm left adrenal mass this is likely an adenoma. This appears benign. 7. Patient with hypertension. Blood pressure remained stable. At discharge she may continue with her current medication. Recommend to maintain blood pressure less than 130/80. Further adjustment may be required. This can be done with the help of her PCP. Diet: AHA Activity: Ad geovanna Followup: NONE,NONE [Primary Care Provider] - Time spent managing pt's care (in minutes): 55
--- NOTE | 2020-05-16 08:51 | RAD REPORT ---
EXAM DESCRIPTION: RAD - Chest Single View - 05/15/2020 10:04 pm CLINICAL HISTORY: CHEST PAIN Chest pain. COMPARISON: Chest Single View dated 10/12/2019; Chest Single View dated 12/24/2017; Chest Single View d ated 07/07/2017; Chest Single View dated 03/23/2016 FINDINGS: Portable technique limits examination quality. The lungs are grossly clear. The heart is normal in size. No displaced fractures. IMPRESSION: No acute intrathoracic process suspected.
[2020-05-16] MEDS ORDERED: ASPIRIN EC 81 MG TAB PO SCH (09:00)
[2020-05-16] MEDS ORDERED: levETIRAcetam 500 MG TAB PO SCH (09:00)
[2020-05-16] MEDS ORDERED: ENOXAPARIN 40 MG/0.4 ML SQ SCH (09:00)
[2020-05-16 09:35] VITALS: O2SAT 98
[2020-05-16 10:03] VITALS: BP 128/80; TEMP 97.4
--- NOTE | 2020-05-16 10:26 | RAD REPORT ---
EXAM DESCRIPTION: Chest Abdomen Pelvis W Cont CLINICAL HISTORY: 50 years Female LLQ abdominal pain;Chest pain COMPARISON: CT abdomen and pelvis study from 01/21/2020 TECHNIQUE: Contiguous axial images obtained through the chest, abdomen and pelvis following IV contr ast. Reformatted images obtained. This exam was performed according to our department optimization program which includes automated exp osure control, adjustment of the mA and/or kv according to patient size and/or use of iterative recon struction technique. FINDINGS: The mediastinum appears unremarkable. Mild coronary artery calcifications. No evidence for thoracic aortic dissection. There are mild atherosclerotic changes in the thoracic ao rta. No consolidating infiltrates or pleural effusions. No pneumothorax. There is a calcified granulom a in the left upper lung. The liver appears unremarkable. The spleen and pancreas appear unremarkable. There is a 3.2 cm left adrenal mass which is stable compared to the prior study. The mass may represe nt an adenoma. The kidneys appear unremarkable. No hydronephrosis. Changes from previous cholecystectomy. Atherosclerotic calcifications. No aneurysmal dilatation of the aorta. The stomach is slightly distended with food and fluid. No bowel obstruction. The appendix appears u nremarkable. Scattered colonic diverticula. No free pelvic fluid. There are postsurgical changes partially visualized in the lower cervical spine. There are degenerati ve changes in the spine most pronounced at L4-5. IMPRESSION: No acute abnormality is identified. There is a stable left adrenal mass which may represent an adenoma. There are scattered colonic diverticula without diverticulitis. The stomach is slightly distended with food and fluid. Electronically signed by: Michele Mckeon MD 05/15/2020 11:13 PM CDT Due to temporary technical issues with the PACS/Fluency reporting system, reports are being signed by the in house radiologist without review as a courtesy to ensure prompt reporting. The interpreting r adiologist is fully responsible for the content of the report.
[2020-05-16] MEDS ORDERED: ATORVASTATIN 40 MG TAB PO SCH (21:00)
--- NOTE | 2020-05-17 07:02 | CON ---
Date of Consultation: 05/16/2020 Reason For Consultation: Chest pain. History Of Present Illness: Ms. Coon is a 50-year-old woman with history of bipolar disorder, anxi ety, depression, hypertension. Apparently had a history of catheterization about 15 years ago after a slight heart attack, but according to her a catheterization was not done. She came in with sharp c hest pain in the midepigastric region radiating to the left arm, stabbing, not related to food, time of the day, body position, or exertion. Denied any PND, orthopnea, pedal edema, palpitations, or syn cope. She herself feels like she had panic attacks. She denied PND, orthopnea, pedal edema, palpita tions, or syncope. Allergies: SHE IS ALLERGIC TO FLUOXETINE. Review of Systems: Negative. Social History: Negative. Family History: Negative. Medications: At home include lisinopril with hydrochlorothiazide. She also takes Keppra. She takes some inhalers. Physical Examination: Vital Signs: Stable. She was afebrile. HEENT: Negative. Neck: Supple with no bruit. Chest: Clear to auscultation and percussion. Cardiac Exam: Revealed a regular rhythm and rate. No murmurs, gallops, or rubs. Abdomen: Benign. Extremities: Revealed no clubbing, cyanosis, or edema. Diagnostic Data: All normal. Impression And Plan: Patient with atypical chest pain, history of hypertension, coronary artery dise ase about 15 years ago. No followup after that. The patient has ruled out for a myocardial infarcti on with normal electrocardiogram, troponin, and x-ray. She is asymptomatic now. I think she needs t o go home on all home medications and I will make arrangements for her to have an outpatient echocard iogram and an MPI. The case was discussed with Dr. Elizabeth. LANG/JOSELYN Voice ID: [id number] Report ID: [id number]
== END 2020-05-16 09:05 | disposition home or self-care (01) ==
LOC: ER 20:59 → ERHOLD 05-16 00:10
PROVIDERS: ADMIT Family Medicine; ATTEND Family Medicine
DX: R07.9 Chest pain, unspecified (principal); F31.9 Bipolar disorder, unspecified; I10 Essential (primary) hypertension; Z20.828 Contact with and (suspected) exposure to other viral communicable diseases; I25.10 Atherosclerotic heart disease of native coronary artery without angina pectoris; E78.1 Pure hyperglyceridemia; G40.909 Epilepsy, unspecified, not intractable, without status epilepticus; J44.9 Chronic obstructive pulmonary disease, unspecified; K21.9 Gastro-esophageal reflux disease without esophagitis; E27.8 Other specified disorders of adrenal gland; R10.9 Unspecified abdominal pain; F41.8 Other specified anxiety disorders; I25.2 Old myocardial infarction; F17.210 Nicotine dependence, cigarettes, uncomplicated; G89.29 Other chronic pain
CPT/HCPCS: 93005; 85025 ×2; 80048 ×2; 36415; 83735 ×2; 85610; 80061; 80076; 84443; 81003; 84484 ×2; 84439; 83690; 83880; 71260; 74177; 71045; 96375; 96372; 96374; 99285; U0003; Q9967; J0500; J3480; J2270; J7050; J2405 ×3; G0378 ×2

== ENCOUNTER 2020-06-07 13:31 | Observation (INO) | payer OTHER ==
--- OUTSIDE RECORDS SUMMARY | 2020-06-07 14:05 | XMS REPORT | Continuity of Care Document ---
:1970 Author Organization [facility] t Address [address] [place] [address] Care Team Providers Name Role Phone Dima [...] Department ID 2019-03-09 2019-03-09 LEIGH Zimmerman [id number] 00:00:00 00:00:00 Yehuda Harrell [id number] [place] [id number] [facility] [phone] [address] Building Results This patient has no known results.
[2020-06-07] MEDS ORDERED: MORPHINE 4 MG/ML SYR ONE ×2 (14:08→15:37)
[2020-06-07] MEDS ORDERED: NA CHLORIDE 0.9% 1,000 ML ONE (14:08)
[2020-06-07] MEDS ORDERED: ONDANSETRON 4 MG/2 ML VIAL ONE ×3 (14:08→18:32)
[2020-06-07 14:13] LABS: Absolute Lymphocytes (CBC) 2.4 K/uL (0.7-4.9); Hematocrit 37.8 % (36.0-45.0); Lymphocytes % 33.7 % (15.3-44.8); MPV 6.8 fL (7.6-11.3); RBC Red Blood Cell Count 4.63 M/uL (3.86-4.86)
[2020-06-07 14:14] LABS: Potassium 3.3 mmol/L (3.5-5.1)
--- NOTE | 2020-06-07 14:51 | RAD REPORT ---
EXAM DESCRIPTION: CTAbdomen Pelvis W Contrast - 06/07/2020 2:07 pm CLINICAL HISTORY: Abdominal pain. ABD PAIN COMPARISON: Abdomen Pelvis W Contrast dated 01/21/2020; Abdomen Pelvis W Contrast dated 12/09/2019; Abdomen Pelvis W Contrast dated 06/12/2019; Abdomen Pelvis W Contrast dated 12/24/2017 TECHNIQUE: Biphasic CT imaging of the abdomen and pelvis was performed with 100 ml non-ionic IV cont rast. All CT scans are performed using dose optimization technique as appropriate and may include automated exposure control or mA/KV adjustment according to patient size. FINDINGS: The lung bases are clear.Cholecystectomy clips. The liver, spleen, pancreas, right adrenal gland and kidneys are within normal limits. 3 cm left adre nal mass is again, unchanged. No bowel obstruction, free air, free fluid or abscess. Moderate stool is present retained throughout the colon. Sigmoid diverticulosis coli is present without diverticulitis. There is colonic wall thick ening seen throughout the majority of the colon. The appendix is normal. No evidence of significant lymphadenopathy. No suspicious bony findings. IMPRESSION: A mild nonspecific colitis pattern is noted. Moderate retained stool particularly in the rectosigmoid colon sigmoid diverticulosis coli. No findin gs typical of acute diverticulitis seen.
--- NOTE | 2020-06-07 15:29 | EDPHYS ---
Physician Documentation [facility] Name: Heather Coon Age: 50 yrs Sex: Female : 1970 Arrival Date: 06/07/2020 Time: 13:38 Bed 15 Private MD: ED Physician Derrick Santillan HPI: 06/07 15:26 This 50 yrs old Female presents to ER via EMS with complaints of abd pain, kb n/v. 15:26 The patient presents with abdominal pain. Onset: The symptoms/episode began/occurred kb last night. The symptoms do not radiate. Associated signs and symptoms: Pertinent positives: nausea, vomiting, and diarrhea, Pertinent negatives: fever. The symptoms are described as constant. Modifying factors: The symptoms are alleviated by nothing, the symptoms are aggravated by nothing. Severity of pain: At its worst the pain was moderate in the emergency department the pain is unchanged. The patient has experienced similar episodes in the past, several times. The patient has not recently seen a physician. 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 - Social history:: Smoking status: Patient reports the use of cigarette tobacco products, smokes one-half pack cigarettes per day. ROS: 15:24 Constitutional: Negative for fever, chills, and weight loss, Cardiovascular: Negative kb for chest pain, palpitations, and edema, Respiratory: Negative for shortness of breath, cough, wheezing, and pleuritic chest pain, Back: Negative for injury and pain, MS/Extremity: Negative for injury and deformity, Skin: Negative for injury, rash, and discoloration, Neuro: Negative for headache, weakness, numbness, tingling, and seizure. 15:24 Abdomen/GI: Positive for abdominal pain, nausea and vomiting, Negative for Exam: 15:24 Constitutional: This is a well developed, well nourished patient who is awake, alert, kb and in no acute distress. Head/Face: Normocephalic, atraumatic. Chest/axilla: Normal chest wall appearance and motion. Nontender with no deformity. No lesions are appreciated. Cardiovascular: Regular rate and rhythm with a normal S1 and S2. No gallops, murmurs, or rubs. Normal PMI, no JVD. No pulse deficits. Respiratory: Lungs have equal breath sounds bilaterally, clear to auscultation and percussion. No rales, rhonchi or wheezes noted. No increased work of breathing, no retractions or nasal flaring. Skin: Warm, dry with normal turgor. Normal color with no rashes, no lesions, and no evidence of cellulitis. MS/ Extremity: Pulses equal, no cyanosis. Neurovascular intact. Full, normal range of motion. Neuro: Awake and alert, GCS 15, oriented to person, place, time, and situation. Cranial nerves II-XII grossly intact. Motor strength 5/5 in all extremities. Sensory grossly intact. Cerebellar exam normal. Normal gait. 15:24 Abdomen/GI: Inspection: abdomen appears normal, Bowel sounds: normal, in all quadrants, Palpation: soft, in all quadrants, moderate abdominal tenderness, in the left lower quadrant. Vital Signs: 13:39 BP 148 / 90; Pulse 99; Resp 18; Temp 98.5(TE); Pulse Ox 97% on R/A; Weight 68.49 kg ca1 (R); Height 5 ft. 1 in. (154.94 cm); Pain 10/10; 14:42 BP 134 / 70; Pulse 87; Resp 16 S; Pulse Ox 100% on R/A; ca1 15:50 BP 146 / 96; Pulse 92; Resp 16 S; Pulse Ox 100% on R/A; ca1 16:50 BP 145 / 85; Pulse 95; Resp 16 S; Pulse Ox 100% on R/A; ca1 17:45 BP 116 / 78; Pulse 86; Resp 16 S; Pulse Ox 98% on R/A; ca1 18:43 BP 140 / 77; Pulse 68; Resp 18 S; Pulse Ox 98% on R/A; ca1 19:45 BP 116 / 80; Pulse 75; Resp 16 S; Pulse Ox 99% on R/A; ca1 20:45 BP 119 / 75; Pulse 84; Resp 16 S; Pulse Ox 100% on R/A; ca1 13:39 Body Mass Index 28.53 (68.49 kg, 154.94 cm) ca1 MDM: 13:39 Patient medically screened. kb 15:25 Data reviewed: vital signs, nurses notes. Data interpreted: Pulse oximetry: on room air kb is 100 %. Interpretation: normal. Counseling: I had a detailed discussion with the patient and/or guardian regarding: the historical points, exam findings, and any diagnostic results supporting the discharge/admit diagnosis, lab results, radiology results, the need for further work-up and treatment in the hospital. Physician consultation: Darrick Fry MD was contacted at 15:25, in the emergency department to see patient at 15:25. 15:26 ED course: Pt unable to tolerate PO and still complaining of pain. Will admit for kb intractable n/v/abd pain. 06/07 13:42 Order name: Basic Metabolic Panel; Complete Time: 14:21 kb 06/07 13:42 Order name: CBC with Diff; Complete Time: 14:33 kb 06/07 14:29 Order name: CREATININE WHOLE BLOOD; Complete Time: 14:31 [facility] 06/07 15:58 Order name: CBC with Automated Diff [facility] 06/07 15:58 Order name: CBC with Automated Diff [facility] 06/07 15:58 Order name: Comprehensive Metabolic Panel [facility] 06/07 13:42 Order name: CT Abd/Pelvis - IV Contrast Only; Complete Time: 14:59 kb 06/07 15:58 Order name: Comprehensive Metabolic Panel [facility] 06/07 16:35 Order name: Urine Dipstick--Ancillary (enter results) em1 06/07 17:18 Order name: Urine Dipstick-Ancillary; Complete Time: 17:18 [facility] 06/07 13:42 Order name: IV Saline Lock; Complete Time: 13:49 kb 06/07 13:42 Order name: Labs collected and sent; Complete Time: 13:49 kb 06/07 15:08 Order name: Urine Dipstick-Ancillary (obtain specimen); Complete Time: 16:26 kb 06/07 15:58 Order name: CONS Pharmacy Consult [facility] 06/07 15:58 Order name: CONS Physician Consult [facility] 06/07 15:58 Order name: Full Liquid [facility] Administered Medications: 13:55 Drug: NS 0.9% 1000 ml Route: IV; Rate: 1000 ml; Site: right forearm; ca1 15:00 Follow up: Response: No adverse reaction; IV Status: Completed infusion; IV Intake: ca1 1000ml 13:56 Drug: Zofran (Ondansetron) 4 mg Route: IVP; Site: right forearm; ca1 15:00 Follow up: Response: No adverse reaction; Nausea is decreased ca1 13:58 Drug: morphine 4 mg {Note: rass 0.} Route: IVP; Site: right forearm; ca1 15:00 Follow up: Response: No adverse reaction; Pain is decreased; RASS: Alert and Calm (0) ca1 14:51 Drug: Zofran (Ondansetron) 4 mg Route: IVP; Site: right forearm; ca1 17:00 Follow up: Response: No adverse reaction; Nausea is decreased ca1 15:28 Drug: morphine 4 mg {Note: rass 0.} Route: IVP; Site: right forearm; ca1 17:00 Follow up: Response: No adverse reaction; Pain is decreased; RASS: Alert and Calm (0) ca1 Disposition: 06/08 06:03 Co-signature as Attending Physician, Derrick Santillan MD I agree with the assessment and fabrice plan of care. Disposition: 06/07/20 15:28 Hospitalization ordered by Darrick Fry for Observation. Preliminary diagnosis are Lower abdominal pain, unspecified - intractable; colitis, Nausea and vomiting - intractable. - Bed requested for Telemetry/MedSurg (observation). - Status is Observation. ca1 - Condition is Stable. - Problem is new. - Symptoms are unchanged. Signatures: Dispatcher [employer] Chel Puga, DANIELA-Adi SUAREZ-Sarina Neville, RN RN Derrick Jolly MD MD cha Acob, Cheryl RN RN ca1 Corrections: (The following items were deleted from the chart) 06/07 18:41 15:28 Hospitalization Ordered by Darrick Fry MD for Observation. Preliminary dw diagnosis is Lower abdominal pain, unspecified - intractable; colitis; Nausea and vomiting - intractable. Bed requested for Telemetry/MedSurg (observation). Status is Observation. Condition is Stable. Problem is new. Symptoms are unchanged. kb 21:05 18:41 06/07/2020 15:28 Hospitalization Ordered by Darrick Fry MD for Observation. ca1 Preliminary diagnosis is Lower abdominal pain, unspecified - intractable; colitis; Nausea and vomiting - intractable. Bed requested for Telemetry/MedSurg (observation). Status is Observation. Condition is Stable. Problem is new. Symptoms are unchanged. dw
--- NOTE | 2020-06-07 15:29 | ER ---
Nurse's Notes [facility] Name: Heather Coon Age: 50 yrs Sex: Female : 1970 Arrival Date: 06/07/2020 Time: 13:38 Bed 15 Private MD: Diagnosis: Lower abdominal pain, unspecified-intractable; colitis;Nausea and vomiting-intractable Presentation: 06/07 13:39 Chief complaint: EMS states: pt has a history of diverticulitis and has had severe ca1 nausea, vomiting with left and right upper quadrant pain. Coronavirus screen: Client denies travel out of the [place] in the last 14 days. Ebola Screen: No symptoms or risks identified at this time. Initial Sepsis Screen: Does the patient meet any 2 criteria? No. Patient's initial sepsis screen is negative. Does the patient have a suspected source of infection? No. Patient's initial sepsis screen is negative. Risk Assessment: Do you want to hurt yourself or someone else? Patient reports no desire to harm self or others. Onset of symptoms was June 07, 2020. Care prior to arrival: Medication(s) given: zofran 4 mg. 13:39 Method Of Arrival: EMS: [facility] ca1 13:39 Acuity: ANDER 3 ca1 CAN TESTER: 17:16 LMP 06/03/2020 ca1 Historical: - Allergies: 13:51 Fluoxetine; ca1 13:51 Green Tea; ca1 13:51 Prozac; ca1 - Home Meds: 13:51 Keppra Oral [Active]; ca1 - PMHx: 13:51 Anxiety; Bipolar disorder; Chronic pain; Depression; Diverticulitis; Herniated Back ca1 Disc; Hypertension; intestinal mass; Myocardial infarction; pt reports hx of seizures; Spastic Muscles; - PSHx: 13:51 intestinal mass; ca1 - Immunization history:: Adult Immunizations. - Social history:: Smoking status: Patient reports the use of cigarette tobacco products, smokes one-half pack cigarettes per day. Screenin:51 Abuse screen: Denies threats or abuse. Denies injuries from another. Nutritional ca1 screening: No deficits noted. Tuberculosis screening: No symptoms or risk factors identified. Fall Risk IV access (20 points). Assessment: 13:49 General: Appears in no apparent distress. uncomfortable, Behavior is calm, cooperative, ca1 appropriate for age. Pain: Complains of pain in right upper quadrant and left lower quadrant Pain currently is 8 out of 10 on a pain scale. Pain began 1 day ago. Neuro: Level of Consciousness is awake, alert, obeys commands, Oriented to person, place, time, situation. Cardiovascular: Heart tones S1 S2 present Capillary refill < 3 seconds Patient's skin is warm and dry. Respiratory: Airway is patent Respiratory effort is even, unlabored, Respiratory pattern is regular, symmetrical, Breath sounds are clear bilaterally. GI: Abdomen is round non-distended, Bowel sounds present X 4 quads. Abd is soft X 4 quads Abdomen is tender to palpation in right upper quadrant and left lower quadrant Reports nausea, vomiting, last BM was 3 days ago. : No signs and/or symptoms were reported regarding the genitourinary system. EENT: No signs and/or symptoms were reported regarding the EENT system. Derm: Skin is intact, is healthy with good turgor, Skin is pink, warm \T\ dry. Musculoskeletal: Circulation, motion, and sensation intact. Capillary refill < 3 seconds. 14:50 Reassessment: Patient appears in no apparent distress at this time. Patient and/or ca1 family updated on plan of care and expected duration. Pain level reassessed. Patient is alert, oriented x 3, equal unlabored respirations, skin warm/dry/pink. 16:50 Reassessment: Patient appears in no apparent distress at this time. Patient and/or ca1 family updated on plan of care and expected duration. Pain level reassessed. Patient is alert, oriented x 3, equal unlabored respirations, skin warm/dry/pink. 17:50 Reassessment: Patient appears in no apparent distress at this time. Patient and/or ca1 family updated on plan of care and expected duration. Pain level reassessed. Patient is alert, oriented x 3, equal unlabored respirations, skin warm/dry/pink. 18:42 Reassessment: Patient appears in no apparent distress at this time. Patient and/or ca1 family updated on plan of care and expected duration. Pain level reassessed. Patient is alert, oriented x 3, equal unlabored respirations, skin warm/dry/pink. 19:45 Reassessment: Patient appears in no apparent distress at this time. Patient and/or ca1 family updated on plan of care and expected duration. Pain level reassessed. Patient is alert, oriented x 3, equal unlabored respirations, skin warm/dry/pink. 20:45 Reassessment: Patient appears in no apparent distress at this time. Patient and/or ca1 family updated on plan of care and expected duration. Pain level reassessed. Patient is alert, oriented x 3, equal unlabored respirations, skin warm/dry/pink. Vital Signs: 13:39 BP 148 / 90; Pulse 99; Resp 18; Temp 98.5(TE); Pulse Ox 97% on R/A; Weight 68.49 kg ca1 (R); Height 5 ft. 1 in. (154.94 cm); Pain 10/10; 14:42 BP 134 / 70; Pulse 87; Resp 16 S; Pulse Ox 100% on R/A; ca1 15:50 BP 146 / 96; Pulse 92; Resp 16 S; Pulse Ox 100% on R/A; ca1 16:50 BP 145 / 85; Pulse 95; Resp 16 S; Pulse Ox 100% on R/A; ca1 17:45 BP 116 / 78; Pulse 86; Resp 16 S; Pulse Ox 98% on R/A; ca1 18:43 BP 140 / 77; Pulse 68; Resp 18 S; Pulse Ox 98% on R/A; ca1 19:45 BP 116 / 80; Pulse 75; Resp 16 S; Pulse Ox 99% on R/A; ca1 20:45 BP 119 / 75; Pulse 84; Resp 16 S; Pulse Ox 100% on R/A; ca1 13:39 Body Mass Index 28.53 (68.49 kg, 154.94 cm) ca1 ED Course: 13:38 Patient arrived in ED. ca1 13:39 Chel Esteb[facility]C [facility]. kb 13:39 Derrick Santillan MD is Attending Physician. kb 13:40 Cheryl Gonzalez RN is Primary Nurse. ca1 13:41 Triage completed. ca1 13:47 Radiology exam delayed due to test not completed at this time. vm2 13:51 Patient has correct armband on for positive identification. Placed in gown. Bed in low ca1 position. Call light in reach. Side rails up X2. Pulse ox on. NIBP on. Warm blanket given. 13:52 Arm band placed on. ca1 13:52 Maintain EMS IV. Dressing intact. Good blood return noted. Site clean \T\ dry. Gauge \T\ ca 1 site: 20 G RFA. 14:08 CT Abd/Pelvis - IV Contrast Only In Process Unspecified. EDMS 15:27 Darrick Fry MD is Hospitalizing Provider. kb 18:44 No provider procedures requiring assistance completed. Patient admitted, IV remains in ca1 place. Administered Medications: 13:55 Drug: NS 0.9% 1000 ml Route: IV; Rate: 1000 ml; Site: right forearm; ca1 15:00 Follow up: Response: No adverse reaction; IV Status: Completed infusion; IV Intake: ca1 1000ml 13:56 Drug: Zofran (Ondansetron) 4 mg Route: IVP; Site: right forearm; ca1 15:00 Follow up: Response: No adverse reaction; Nausea is decreased ca1 13:58 Drug: morphine 4 mg {Note: rass 0.} Route: IVP; Site: right forearm; ca1 15:00 Follow up: Response: No adverse reaction; Pain is decreased; RASS: Alert and Calm (0) ca1 14:51 Drug: Zofran (Ondansetron) 4 mg Route: IVP; Site: right forearm; ca1 17:00 Follow up: Response: No adverse reaction; Nausea is decreased ca1 15:28 Drug: morphine 4 mg {Note: rass 0.} Route: IVP; Site: right forearm; ca1 17:00 Follow up: Response: No adverse reaction; Pain is decreased; RASS: Alert and Calm (0) ca1 Intake: 15:00 IV: 1000ml; Total: 1000ml. ca1 Outcome: 15:28 Decision to Hospitalize by Provider. kb 20:22 Admitted to Med/surg accompanied by tech, via wheelchair, on monitor, Report called to ca1 BETH Lorenzo 20:22 Condition: stable 20:22 Instructed on the need for admit. 21:05 Patient left the ED. ca1 Signatures: Dispatcher [employer] EDMS Chel Esteban FNP-C FNP-Ckb McGuire, [facility] Cheryl Gonzalez RN RN ca1
[2020-06-07] MEDS ORDERED: ACETAMINOPHEN 500 MG TAB PO PRN (15:54)
[2020-06-07] MEDS ORDERED: Levofloxacin500mg IV 500 MG/100 ML BAG IV SCH (16:00)
[2020-06-07 17:18] LABS: Urine Blood TRACE (NEG); Urine Glucose NEGATIVE (NEG); Urine Protein NEGATIVE (NEG); Urine Specific Gravity 1.015 (1.005-1.030); Urine pH 7.5 (5.0-7.0)
[2020-06-07] MEDS: MORPHINE 2 MG/ML SYR IV PRN ×2 (18:30→22:16)
[2020-06-07] MEDS ORDERED: MORPHINE 2 MG/ML SYR ONE (18:32)
[2020-06-07] MEDS ORDERED: Levofloxacin500mg IV 500 MG/100 ML BAG IV ONE (18:32)
[2020-06-07] MEDS: ONDANSETRON 4 MG/2 ML VIAL IV PRN ×2 (18:33→22:16)
[2020-06-07] MEDS: levETIRAcetam 500 MG TAB PO SCH (21:00)
[2020-06-07 21:46] VITALS: BMI 27.6
[2020-06-07] MEDS: NA CHLORIDE 0.9% 1,000 ML IV SCH (21:52)
[2020-06-07] MEDS: METRONIDAZOLE 500mg IVPB 500 MG/100 ML BAG IV SCH ×2 (21:52→21:54)
[2020-06-07] MEDS: HYDROCORTISONE SUC 100 MG INJ IV SCH (21:54)
[2020-06-07] MEDS: PANTOPRAZOLE 40MG TABLET PO SCH (21:54)
[2020-06-07] MEDS ORDERED: POTASSIUM 25 MEQ EFFERV TAB PO ONE (22:47)
[2020-06-08] MEDS: HYDROCORTISONE SUC 100 MG INJ IV SCH ×2 (01:00→09:20)
[2020-06-08 02:23] VITALS: O2SAT 100
[2020-06-08] MEDS: MORPHINE 2 MG/ML SYR IV PRN ×3 (03:47→11:37)
[2020-06-08] MEDS: ONDANSETRON 4 MG/2 ML VIAL IV PRN ×3 (03:48→11:37)
[2020-06-08 04:53] LABS: Absolute Lymphocytes (CBC) 1.3 K/uL (0.7-4.9); Basophils % 0.9 % (0-1.3); Hematocrit 35.5 % (36.0-45.0); Lymphocytes % 22.5 % (15.3-44.8); MPV 6.7 fL (7.6-11.3); RBC Red Blood Cell Count 4.31 M/uL (3.86-4.86)
[2020-06-08 05:14] LABS: Albumin 3.1 g/dL (3.4-5.0); Bilirubin Total 0.3 mg/dL (0.2-1.0); Potassium 3.8 mmol/L (3.5-5.1); Protein, Total 6.5 g/dL (6.4-8.2)
[2020-06-08] MEDS ORDERED: KCL 20 MEQ/100 mL IVPB 20 MEQ/100 ML BAG IV SCH (06:00)
[2020-06-08] MEDS ORDERED: MAGNESIUM CITRATE 300 ML BOT PO SCH (09:00)
--- NOTE | 2020-06-08 09:00 | P.HP ---
Certification for Inpatient Patient admitted to: Observation With expected LOS: <2 Midnights Patient will require the following post-hospital care: None Practitioner: I am a practitioner with admitting privileges, knowledge of patient current condition, hospital course, and medical plan of care. Services: Services provided to patient in accordance with Admission requirements found in Title 42 Section 412.3 of the Code of Federal Regulations Patient History Date of Service: 06/07/20 Reason for admission: MILD COLITIS WITH ABDOMINAL PAIN History of Present Illness: PATIENT IS A 50-YEAR-OLD FEMALE CAME TO THE HOSPITAL WITH ABDOMINAL DISCOMFORT. PATIENT WAS FOUND HAVE MILD COLITIS ALONG WITH ABDOMINAL PAIN IN THE LEFT LOWER QUADRANT. HER SYMPTOMS HAVE BEEN ON AND OFF SINCE SHE WAS DIAGNOSED WITH DIVERTICULITIS. SHE ALSO STATES THAT THE ONLY THING THAT RELIEVES HER PAIN IS IV PAIN MEDICATION. SHE DOES NOT HAVE A FEVER. SHE DOES NOT HAVE A WHITE BLOOD CELL COUNT. HER CT SCAN JUST SHOWED MILD COLITIS WHICH MAY BE RELATED TO THE FACT THAT SHE REMAINS CONSTIPATED QUITE FREQUENTLY. DID ENCOURAGE HER TO TAKE LESS PAIN MEDICATION THIS CAN INCREASE HER CONSTIPATION. ALSO ENCOURAGED STOOL SOFTENERS AND IV FLUIDS. AT THIS TIME SHE WILL BE ADMITTED FOR OBSERVATION. ANTICIPATE DISCHARGE HOME TOMORROW. Allergies fluoxetine HCl [From Prozac] Allergy (Severe, Verified 06/08/20 05:35) Anaphylaxis Green tea Allergy (Unknown, Uncoded 06/08/20 05:35) seizures Home Medications: Albuterol Inhaler [Ventolin Inhaler*] 2 puff IH BID PRN 01/22/20 Albuterol Neb [Proventil 0.083% Neb Soln] 2.5 mg IH PRN PRN 02/09/20 Levetiracetam [Keppra] 1,000 mg PO BEDTIME 06/08/20 Ondansetron [Zofran (Odt)*] 4 mg PO QID PRN 06/08/20 levETIRAcetam [Levetiracetam] 500 mg PO DAILY 06/08/20 - Past Medical/Surgical History Diabetic: No -: COPD -: Hypertension -: migraines -: Depression with anxiety -: Pancreatitis -: Coronary artery disease-prior myocardial infarction -: Diverticulitis -: Seizure disorder -: CAD -: Diverticulitis -: Herniated back disc -: hidtory od seizures -: 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 -: cholecystectomy -: 5 hand surgeries -: tonsilectomy Psychosocial/ Personal History: Lives at home - Family History Mother Medical History: Heart disease, Hypertension, GI disease, Diabetes, Liver disease, Kidney disease - Social History Smoking Status: Current every day smoker Alcohol use: Yes CD- Drugs: Yes Caffeine use: Yes Place of Residence: Home Review of Systems 10-point ROS is otherwise unremarkable Physical Examination - Vital Signs Temperature: 97.7 F Blood Pressure: 136/79 Pulse: 63 Respirations: 18 Pulse Ox (%): 98 - Physical Exam General: Alert, In no apparent distress, Oriented x3 HEENT: Atraumatic, PERRLA, Mucous membr. moist/pink, EOMI, Sclerae nonicteric Neck: Supple, 2+ carotid pulse no bruit, No LAD, Without JVD or thyroid abnormality Respiratory: Clear to auscultation bilaterally, Normal air movement Cardiovascular: Regular rate/rhythm, Normal S1 S2, No murmurs Gastrointestinal: Normal bowel sounds, Soft and benign, Non-distended, Tendern ess Musculoskeletal: No clubbing, No swelling, No tenderness Integumentary: No rashes Neurological: Normal gait, Normal speech, Normal strength at 5/5 x4 extr, Normal tone, Sensation intact, Cranial nerves 3-12 intact, Normal affect Lymphatics: No axilla or inguinal lymphadenopathy - Studies Laboratory Data (last 24 hrs) 06/07/20 13:48: WBC 7.1, Hgb 12.3, Hct 37.8, Plt Count 478 H 06/07/20 13:48: Sodium 144, Potassium 3.3 L, BUN 10, Creatinine 0.98, Glucose 114 H Assessment & Plan - Problems (Diagnosis) (1) Colitis Current Visit: Yes Status: Acute (2) Constipation Current Visit: Yes Status: Acute (3) Abdominal pain Onset Date: 12/28/14 Current Visit: No Status: Acute (4) Diverticula of colon Current Visit: No Status: Acute (5) Diverticulosis Onset Date: 12/28/14 Current Visit: No Status: Acute (6) Hypertension Current Visit: No Status: Acute (7) Seizure Current Visit: No Status: Acute - Plan PLAN: 1. IV FLUIDS AND IV ANTIBIOTICS 2. STOOL SOFTENER AND LAXATIVE NEEDED 3. GI CONSULTATION AN OUTPATIENT 4. PAIN CONTROL 5. OUTPATIENT COLONOSCOPY 6. REPEAT ABDOMINAL FILM IF PAIN WORSENS TO RULE OUT PERFORATION 7. GI AND DVT PROPHYLAXIS Discharge Plan: Home Plan to discharge in: 24 Hours - Advance Directives Does patient have a Living Will: No Does patient have a Durable POA for Healthcare: No - Code Status/Comfort Care Code Status Assessed: Yes Code Status: Full Code Critical Care: No Time Spent Managing PTS Care (In Minutes): 35
[2020-06-08] MEDS: NA CHLORIDE 0.9% 1,000 ML IV SCH (09:06)
[2020-06-08] MEDS: PANTOPRAZOLE 40MG TABLET PO SCH (09:07)
[2020-06-08] MEDS: METRONIDAZOLE 500mg IVPB 500 MG/100 ML BAG IV SCH (09:15)
[2020-06-08] MEDS: levETIRAcetam 500 MG TAB PO SCH (09:18)
[2020-06-08] MEDS ORDERED: INFLUENZA VACCINE (for 3y+) 0.5 ML DOSE IMVAC ONE (10:00)
[2020-06-08 12:06] VITALS: BP 142/100; TEMP 97.9
--- NOTE | 2020-06-12 04:44 | P.DS ---
Discharge Date: 06/08/20 Disposition: ROUTINE DISCHARGE Discharge Condition: GOOD Reason for Admission: MILD COLITIS WITH ABDOMINAL PAIN Consultations: Gastroenterology - Problems (1) Colitis Status: Acute (2) Constipation Status: Acute (3) Abdominal pain Onset Date: 12/28/14 Status: Acute (4) Diverticula of colon Status: Acute (5) Diverticulosis Onset Date: 12/28/14 Status: Acute (6) Hypertension Status: Acute (7) Seizure Status: Acute Brief History of Present Illness: PATIENT IS A 50-YEAR-OLD FEMALE CAME TO THE HOSPITAL WITH ABDOMINAL DISCOMFORT. PATIENT WAS FOUND HAVE MILD COLITIS ALONG WITH ABDOMINAL PAIN IN THE LEFT LOWER QUADRANT. HER SYMPTOMS HAVE BEEN ON AND OFF SINCE SHE WAS DIAGNOSED WITH DIVERTICULITIS. SHE ALSO STATES THAT THE ONLY THING THAT RELIEVES HER PAIN IS IV PAIN MEDICATION. SHE DOES NOT HAVE A FEVER. SHE DOES NOT HAVE A WHITE BLOOD CELL COUNT. HER CT SCAN JUST SHOWED MILD COLITIS WHICH MAY BE RELATED TO THE FACT THAT SHE REMAINS CONSTIPATED QUITE FREQUENTLY. DID ENCOURAGE HER TO TAKE LESS PAIN MEDICATION THIS CAN INCREASE HER CONSTIPATION. ALSO ENCOURAGED STOOL SOFTENERS AND IV FLUIDS. AT THIS TIME SHE WILL BE ADMITTED FOR OBSERVATION. ANTICIPATE DISCHARGE HOME TOMORROW. Hospital Course: Patient has done well during hospital stay. Patient's symptoms have resolved. She will follow with GI for colonoscopy as an outpatient. At this time patient is stable for discharge home and will continue the antibiotic therapy at discharge. Return to the Emergency room if symptoms worsen. Vital Signs/Physical Exam: Temp Pulse Resp BP Pulse Ox 97.9 F 76 18 142/100 H 97 06/08/20 12:00 06/08/20 12:00 06/08/20 12:07 06/08/20 12:00 06/08/20 12:07 General: Alert, In no apparent distress, Oriented x3 Laboratory Data at Discharge: WBC 6.0 K/uL (4.3-10.9) D 06/08/20 04:04 Hgb 11.9 g/dL (12.0-15.0) L 06/08/20 04:04 Hct 35.5 % (36.0-45.0) L 06/08/20 04:04 Plt Count 406 K/uL (152-406) 06/08/20 04:04 Sodium 141 mmol/L (136-145) 06/08/20 04:04 Potassium 3.8 mmol/L (3.5-5.1) 06/08/20 04:04 BUN 6 mg/dL (7-18) L 06/08/20 04:04 Creatinine 0.76 mg/dL (0.55-1.3) 06/08/20 04:04 Glucose 113 mg/dL (74-106) H 06/08/20 04:04 Total Bilirubin 0.3 mg/dL (0.2-1.0) 06/08/20 04:04 AST 9 U/L (15-37) L 06/08/20 04:04 ALT 14 U/L (12-78) 06/08/20 04:04 Alkaline Phosphatase 64 U/L (45-117) 06/08/20 04:04 Home Medications: Albuterol Inhaler [Ventolin Inhaler*] 2 puff IH BID PRN 01/22/20 Albuterol Neb [Proventil 0.083% Neb Soln] 2.5 mg IH PRN PRN 02/09/20 Codeine/APAP [Tylenol W/Codeine #3 tab] 1 tab PO Q6HP PRN #20 tab 06/08/20 Docusate Sodium [Colace Clear] 50 mg PO BID #60 capsule 06/08/20 Levetiracetam [Keppra] 1,000 mg PO BEDTIME 06/08/20 Levofloxacin [Levaquin] 250 mg PO DAILY #5 tablet 06/08/20 Methylprednisolone [Medrol dosepack] 4 mg PO DIRECTED #1 miriam 06/08/20 Ondansetron [Zofran (Odt)*] 4 mg PO QID PRN 06/08/20 levETIRAcetam [Levetiracetam] 500 mg PO DAILY 06/08/20 metroNIDAZOLE [Flagyl] 500 mg PO Q8H #15 tablet 06/08/20 New Medications: Docusate Sodium [Colace Clear] 50 mg PO BID #60 capsule metroNIDAZOLE [Flagyl] 500 mg PO Q8H #15 tablet Levofloxacin [Levaquin] 250 mg PO DAILY #5 tablet Methylprednisolone [Medrol dosepack] 4 mg PO DIRECTED #1 miriam Codeine/APAP [Tylenol W/Codeine #3 tab] 1 tab PO Q6HP PRN #20 tab PRN Reason: Pain Patient Discharge Instructions: OK TO DC IV AND DC HOME. FOLLOW-UP WITH PRIMARY CARE PROVIDER IN 1-2 WEEKS. FOLLOW-UP WITH GASTROENTEROLOGY IN 1-2 WEEKS. RETURN TO THE ER IF SYMPTOMS WORSEN. CALL DR. ALTAMIRANO AT [phone] IF ANY QUESTIONS REGARDING HOSPITAL STAY. PLEASE CALL THE FLOOR AT [phone] IF ANY MEDICATION OR NURSING QUESTIONS. Diet: INCREASE FREE WATER IN DIET Activity: Fall precautions Followup: NONE,NONE [Primary Care Provider] - Darrick Stout MD [OUTSIDE PHYSICIAN] - Time spent managing pt's care (in minutes): 30
== END 2020-06-08 15:29 | disposition home or self-care (01) ==
LOC: ER 13:31 → ERHOLD 15:55 → 2ND 20:27
PROVIDERS: ADMIT Hospitalist; ATTEND Hospitalist
DX: K52.9 Noninfective gastroenteritis and colitis, unspecified (principal); K59.00 Constipation, unspecified; K57.30 Diverticulosis of large intestine without perforation or abscess without bleeding; I10 Essential (primary) hypertension; Z20.828 Contact with and (suspected) exposure to other viral communicable diseases; J44.9 Chronic obstructive pulmonary disease, unspecified; F41.8 Other specified anxiety disorders; I25.10 Atherosclerotic heart disease of native coronary artery without angina pectoris; I25.2 Old myocardial infarction; G40.909 Epilepsy, unspecified, not intractable, without status epilepticus; F17.210 Nicotine dependence, cigarettes, uncomplicated
CPT/HCPCS: 96361; 85025 ×2; 80048; 36415 ×2; 82565; 81003; 80053; 74177; 96375; 96374; 99285; U0002; Q9967; J3480; J2270 ×5; J7030 ×3; J1720 ×2; J2405 ×7; G0378 ×3

== ENCOUNTER 2020-06-22 19:54 | Emergency (ER) | payer OTHER ==
--- OUTSIDE RECORDS SUMMARY | 2020-06-22 19:57 | XMS REPORT | Continuity of Care Document ---
:1970 Author Organization [facility] t Address [address] [place] [address] Care Team Providers Name Role Phone Dima [...] Department ID 2019-03-09 2019-03-09 LEIGH Zimmerman [id number] 00:00:00 00:00:00 Yehuda Harrell [id number] [place] [id number] [phone] [address] 092 Building Results This patient has no known results.
[2020-06-22] MEDS ORDERED: HYDROCODONE/CHLORPHEN 5 ML/OSYR ONE (22:44)
[2020-06-22] MEDS ORDERED: ONDANSETRON 4 MG/2 ML VIAL ONE (22:44)
[2020-06-22] MEDS ORDERED: METHYLPREDNISOLONE 125 MG INJ ONE (22:44)
[2020-06-22] MEDS ORDERED: ALBUTEROL 2.5 MG/3 ML NEB SOL ONE (22:45)
[2020-06-22] MEDS ORDERED: IPRATROPIUM BROM 0.5MG/2.5ML ONE (22:45)
[2020-06-22 22:54] LABS: Absolute Lymphocytes (CBC) 3.3 K/uL (0.7-4.9); Basophils % 1.9 % (0-1.3); Hematocrit 35.1 % (36.0-45.0); Lymphocytes % 33.1 % (15.3-44.8); MPV 6.7 fL (7.6-11.3); RBC Red Blood Cell Count 4.28 M/uL (3.86-4.86)
[2020-06-22 23:03] LABS: Potassium 3.3 mmol/L (3.5-5.1)
[2020-06-22] MEDS ORDERED: KETOROLAC 30 MG/ML INJ ONE (23:22)
[2020-06-22] MEDS ORDERED: AZITHROMYCIN 250 MG TAB ONE (23:25)
--- NOTE | 2020-06-22 23:42 | EDPHYS ---
Physician Documentation [facility] Name: Heather Coon Age: 50 yrs Sex: Female : 1970 Arrival Date: 06/22/2020 Time: 20:01 Bed 5 Private MD: ED Physician Kavon Jordan HPI: 06/22 23:25 This 50 yrs old Female presents to ER via EMS with complaints of Breathing kb Difficulty. 23:25 The patient has shortness of breath at rest. Onset: The symptoms/episode began/occurred kb 2 day(s) ago. Duration: The symptoms are continuous. The patient's shortness of breath is aggravated by coughing, is alleviated by inhaler. Associated signs and symptoms: Pertinent positives: non-productive cough, Pertinent negatives: chest pain, productive cough, diaphoresis, dizziness, fever, hemoptysis, loss of consciousness, nausea, numbness in extremities, visual changes, vomiting. Severity of symptoms: At their worst the symptoms were moderate in the emergency department the symptoms are unchanged. The patient has not experienced similar symptoms in the past. The patient has not recently seen a physician. Pt reports shortness of breath and cough that started 2 days ago. Pt reports she used the last puff of her inhaler earlier today. Pt smokes cigarettes daily. 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 - Social history:: Smoking status: Patient reports the use of cigarette tobacco products, smokes one pack cigarettes per day. ROS: 23:23 Constitutional: Negative for fever, chills, and weight loss, Cardiovascular: Negative kb for chest pain, palpitations, and edema, Abdomen/GI: Negative for abdominal pain, nausea, vomiting, diarrhea, and constipation, Back: Negative for injury and pain, MS/Extremity: Negative for injury and deformity, Skin: Negative for injury, rash, and discoloration, Neuro: Negative for headache, weakness, numbness, tingling, and seizure. 23:23 Respiratory: Positive for cough, shortness of breath, Negative for dyspnea on exertion, hemoptysis, orthopnea, pleurisy, sputum production, wheezing. Exam: 23:23 Constitutional: This is a well developed, well nourished patient who is awake, alert, kb and in no acute distress. Head/Face: Normocephalic, atraumatic. Chest/axilla: Normal chest wall appearance and motion. Nontender with no deformity. No lesions are appreciated. Cardiovascular: Regular rate and rhythm with a normal S1 and S2. No gallops, murmurs, or rubs. Normal PMI, no JVD. No pulse deficits. Abdomen/GI: Soft, non-tender, with normal bowel sounds. No distension or tympany. No guarding or rebound. No evidence of tenderness throughout. Skin: Warm, dry with normal turgor. Normal color with no rashes, no lesions, and no evidence of cellulitis. MS/ Extremity: Pulses equal, no cyanosis. Neurovascular intact. Full, normal range of motion. Neuro: Awake and alert, GCS 15, oriented to person, place, time, and situation. Cranial nerves II-XII grossly intact. Motor strength 5/5 in all extremities. Sensory grossly intact. Cerebellar exam normal. Normal gait. 23:23 Respiratory: the patient does not display signs of respiratory distress, Respirations: normal, Breath sounds: wheezing: expiratory that is mild, that is moderate, is scattered. Vital Signs: 20:28 BP 106 / 77; Pulse 103; Resp 20; Temp 98.8(O); Pulse Ox 98% on R/A; Weight 68.04 kg lp1 (R); Height 5 ft. 3 in. (160.02 cm); Pain 9/10; 22:00 BP 154 / 90; Pulse 101; Resp 23; Pulse Ox 100% on R/A; rv 23:00 BP 134 / 76; Pulse 103; Resp 21; Pulse Ox 100% on R/A; rv 23:30 BP 136 / 81; Pulse 98; Resp 18; Temp 98.5; Pulse Ox 99% on R/A; rv 20:28 Body Mass Index 26.57 (68.04 kg, 160.02 cm) lp1 20:28 Patient noted to be crying during vitals lp1 MDM: 21:56 Patient medically screened. kb 23:23 Data reviewed: vital signs, nurses notes. Data interpreted: Pulse oximetry: on room air kb is 98 %. Interpretation: normal. Counseling: I had a detailed discussion with the patient and/or guardian regarding: the historical points, exam findings, and any diagnostic results supporting the discharge/admit diagnosis, lab results, radiology results, the need for outpatient follow up, a family practitioner, to return to the emergency department if symptoms worsen or persist or if there are any questions or concerns that arise at home. 06/22 21:02 Order name: Flu; Complete Time: 22:32 kb 06/22 22:21 Order name: Basic Metabolic Panel; Complete Time: 23:08 kb 06/22 21:02 Order name: Chest Single View XRAY kb 06/22 22:21 Order name: CBC with Diff; Complete Time: 23:22 kb 06/22 22:21 Order name: IV Saline Lock; Complete Time: 22:37 kb 06/22 22:21 Order name: Labs collected and sent; Complete Time: 22:37 kb Administered Medications: 22:39 Drug: DuoNeb (3:1) (2.5 mg - 0.5 mg) 3 ml Route: Nebulizer; rv 23:42 Follow up: Response: No adverse reaction; Marked relief of symptoms rv 22:39 Drug: Tussionex Pennkinetic ER 5 ml Route: PO; rv 23:42 Follow up: Response: No adverse reaction rv 22:39 Drug: SOLU-Medrol 125 mg Route: IVP; Site: right forearm; rv 23:42 Follow up: Response: No adverse reaction rv 22:40 Drug: Zofran (Ondansetron) 4 mg Route: IVP; Site: right forearm; rv 23:42 Follow up: Response: No adverse reaction rv 23:15 Drug: TORadol - Ketorolac 15 mg Route: IVP; Site: right forearm; rv 23:42 Follow up: Response: No adverse reaction; Pain is decreased rv 23:15 Drug: Zithromax 500 mg Route: PO; rv 23:42 Follow up: Response: No adverse reaction rv 23:42 Drug: Potassium Chloride 20 mEq Route: PO; rv 23:43 Follow up: Response: Medication administered at discharge. rv Disposition: 06/23 06:31 Co-signature as Attending Physician, Kavon Jordan MD. pkl Disposition: 06/22/20 23:41 Discharged to Home. Impression: Acute bronchitis. - Condition is Stable. - Discharge Instructions: Acute Bronchitis, [id number]. - Prescriptions for Prednisone 20 mg Oral Tablet - take 1 tablet by ORAL route once daily for 5 days; 5 tablet. Albuterol Sulfate 90 mcg/actuation - inhale 1-2 puff by INHALATION route every 4-6 hours; 1 Inhaler. Zithromax 500 mg Oral Tablet - take 1 tablet by ORAL route once daily for 5 days; 5 tablet. - Medication Reconciliation Form, Thank You Letter, Antibiotic Education, Prescription Opioid Use form. - Follow up: Emergency Department; When: As needed; Reason: Worsening of condition. Follow up: Private Physician; When: 2 - 3 days; Reason: Recheck today's complaints, Continuance of care, Re-evaluation by your physician. Signatures: Dispatcher [employer] EDUT Chel Esteban, RADIO SCRIPT WRITER-C RADIO SCRIPT WRITER-Kavon Wong MD MD pkl Nadine Baldwin, RN RN lp1 Deejay Watt, RN RN rv Corrections: (The following items were deleted from the chart) 06/22 23:45 23:41 06/22/2020 23:41 Discharged to Home. Impression: Acute bronchitis. Condition is rv Stable. Forms are Medication Reconciliation Form, Thank You Letter, Antibiotic Education, Prescription Opioid Use. Follow up: Emergency Department; When: As needed; Reason: Worsening of condition. Follow up: Private Physician; When: 2 - 3 days; Reason: Recheck today's complaints, Continuance of care, Re-evaluation by your physician. kb
--- NOTE | 2020-06-22 23:42 | ER ---
Nurse's Notes [facility] Name: Heather Coon Age: 50 yrs Sex: Female : 1970 Arrival Date: 06/22/2020 Time: 20:01 Bed 5 Private MD: Diagnosis: Acute bronchitis Presentation: 06/22 19:50 Chief complaint: EMS states: Called for patient with shortness of breath that began lp1 yesterday with productive cough and reported fever; patient did Albuterol neb prior to EMS arrival; Last tested negative for COVID 2 weeks ago. 19:50 Coronavirus screen: Ebola Screen: No symptoms or risks identified at this time. Risk lp1 Assessment: Do you want to hurt yourself or someone else? Patient reports no desire to harm self or others. Onset of symptoms was June 21, 2020. 19:50 Method Of Arrival: EMS: [facility] lp1 20:24 Coronavirus screen: congestion, cough unrelated to allergies, difficulty breathing, lp1 fatigue, fever, headache, muscle pain, runny nose, shortness of breath, sore throat, loss of taste or smell. 20:24 Acuity: ANDER 3 lp1 20:28 Initial Sepsis Screen: Does the patient meet any 2 criteria? HR > 90 bpm. Does the lp1 patient have a suspected source of infection? No. Patient's initial sepsis screen is negative. Triage Assessment: 22:42 General: Appears uncomfortable, ill, Behavior is cooperative. Respiratory: Reports rv shortness of breath at rest Onset: The symptoms/episode began/occurred gradually, the patient has moderate shortness of breath. 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 - Social history:: Smoking status: Patient reports the use of cigarette tobacco products, smokes one pack cigarettes per day. Screenin:28 Abuse screen: Denies threats or abuse. Denies injuries from another. Nutritional lp1 screening: No deficits noted. Tuberculosis screening: No symptoms or risk factors identified. 22:42 Fall Risk None identified. rv Assessment: 22:41 General: Appears uncomfortable, Behavior is cooperative. Pain: Denies pain. Neuro: rv Level of Consciousness is awake, alert, obeys commands, Oriented to person, place, time, situation. Cardiovascular: Patient's skin is warm and dry. Rhythm is regular. Respiratory: Airway is patent Respiratory effort is labored, Respiratory pattern is tachypnea Breath sounds are coarse bilaterally. Derm: Skin is intact. Vital Signs: 20:28 BP 106 / 77; Pulse 103; Resp 20; Temp 98.8(O); Pulse Ox 98% on R/A; Weight 68.04 kg lp1 (R); Height 5 ft. 3 in. (160.02 cm); Pain 9/10; 22:00 BP 154 / 90; Pulse 101; Resp 23; Pulse Ox 100% on R/A; rv 23:00 BP 134 / 76; Pulse 103; Resp 21; Pulse Ox 100% on R/A; rv 23:30 BP 136 / 81; Pulse 98; Resp 18; Temp 98.5; Pulse Ox 99% on R/A; rv 20:28 Body Mass Index 26.57 (68.04 kg, 160.02 cm) lp1 20:28 Patient noted to be crying during vitals lp1 ED Course: 20:01 Patient arrived in ED. cl3 20:26 Triage completed. lp1 20:26 Arm band placed on. lp1 21:02 Chel Esteban FNP-C is PHCP. kb 21:02 Kavon Jordan MD is Attending Physician. kb 21:56 Flu and/or RSV swab sent to lab. lp1 22:07 Deejay Watt, BETH is Primary Nurse. rv 22:19 Chest Single View XRAY In Process Unspecified. EDMS 22:41 Initial lab(s) drawn, by me, sent to lab. Inserted saline lock: 20 gauge in right rv forearm, using aseptic technique. Blood collected. 22:42 Patient has correct armband on for positive identification. Placed in gown. Bed in low rv position. Call light in reach. Side rails up X 1. food writer on. Pulse ox on. NIBP on. 23:45 No provider procedures requiring assistance completed. IV discontinued, intact, rv bleeding controlled, No redness/swelling at site. Pressure dressing applied. Administered Medications: 22:39 Drug: DuoNeb (3:1) (2.5 mg - 0.5 mg) 3 ml Route: Nebulizer; rv 23:42 Follow up: Response: No adverse reaction; Marked relief of symptoms rv 22:39 Drug: Tussionex Pennkinetic ER 5 ml Route: PO; rv 23:42 Follow up: Response: No adverse reaction rv 22:39 Drug: SOLU-Medrol 125 mg Route: IVP; Site: right forearm; rv 23:42 Follow up: Response: No adverse reaction rv 22:40 Drug: Zofran (Ondansetron) 4 mg Route: IVP; Site: right forearm; rv 23:42 Follow up: Response: No adverse reaction rv 23:15 Drug: TORadol - Ketorolac 15 mg Route: IVP; Site: right forearm; rv 23:42 Follow up: Response: No adverse reaction; Pain is decreased rv 23:15 Drug: Zithromax 500 mg Route: PO; rv 23:42 Follow up: Response: No adverse reaction rv 23:42 Drug: Potassium Chloride 20 mEq Route: PO; rv 23:43 Follow up: Response: Medication administered at discharge. rv Outcome: 23:41 Discharge ordered by . kb 23:45 Discharged to home ambulatory. rv 23:45 Condition: good 23:45 Discharge instructions given to patient, Instructed on discharge instructions, follow up and referral plans. medication usage, Demonstrated understanding of instructions, follow-up care, medications, Prescriptions given X 3. 23:45 Patient left the ED. rv Signatures: Dispatcher [employer] EDMS Chel Esteban, TITO SUAREZ-Nadine Encinas, RN RN lp1 Deejay Watt, RN RN rv Anjali Currie cl3
[2020-06-22] MEDS ORDERED: POTASSIUM CL SA 10 MEQ TAB PO ONE (23:55)
--- NOTE | 2020-06-23 08:57 | RAD REPORT ---
EXAM DESCRIPTION: Leno Single View06/22/2020 10:18 pm CLINICAL HISTORY: Cough COMPARISON: April 2020 FINDINGS: The lungs appear clear of acute infiltrate. The heart is normal size IMPRESSION: No acute abnormalities displayed
== END 2020-06-22 23:45 | disposition home or self-care (01) ==
LOC: ER 19:54
DX: J20.9 Acute bronchitis, unspecified (principal); F17.210 Nicotine dependence, cigarettes, uncomplicated; Z88.8 Allergy status to other drugs, medicaments and biological substances; Z91.018 Allergy to other foods
CPT/HCPCS: 85025; 80048; 36415; 87804 ×2; 71045; J2930; J2405; 96374; 96375; 99285

== ENCOUNTER 2020-07-09 09:51 | Emergency (ER) | payer OTHER ==
[2020-07-09] MEDS ORDERED: NA CHLORIDE 0.9% 1,000 ML ONE (10:55)
[2020-07-09] MEDS ORDERED: MEPERIDINE HCL 25 MG/ML SYR ONE (10:55)
[2020-07-09] MEDS ORDERED: PROMETHAZINE INJ 25 MG/ML AMP ONE (10:55)
--- OUTSIDE RECORDS SUMMARY | 2020-07-09 10:58 | XMS REPORT | Continuity of Care Document ---
:1970 Author Organization [facility] t Address [address] [place] [address] Care Team Providers Name Role Phone Dima [...] Department ID 2019-03-09 2019-03-09 LEIGH Zimmerman [id number] 00:00:00 00:00:00 Yehuda Harrell [id number] [place] [id number] [facility] [phone] nal 092 Building Results This patient has no known results.
[2020-07-09 11:10] LABS: Absolute Lymphocytes (CBC) 2.4 K/uL (0.7-4.9); Basophils % 1.2 % (0-1.3); Hematocrit 38.7 % (36.0-45.0); Lymphocytes % 36.9 % (15.3-44.8); MPV 6.6 fL (7.6-11.3); RBC Red Blood Cell Count 4.69 M/uL (3.86-4.86)
[2020-07-09 11:22] LABS: Bilirubin Direct 0.1 mg/dL (0-0.2); Bilirubin Total 0.3 mg/dL (0.2-1.0); Potassium 3.6 mmol/L (3.5-5.1); Protein, Total 7.7 g/dL (6.4-8.2)
--- NOTE | 2020-07-09 11:35 | RAD REPORT ---
EXAM DESCRIPTION: CT - Abdomen Pelvis W Contrast - 07/09/2020 11:15 am CLINICAL HISTORY: Abdominal pain COMPARISON: May 2020 TECHNIQUE: Computed axial tomography of the abdomen pelvis was obtained. 100 cc Isovue-300 was admin istered intravenously. Oral contrast was not requested which limits evaluation of bowel. All CT scans are performed using dose optimization technique as appropriate and may include automated exposure control or mA/KV adjustment according to patient size. FINDINGS: The liver, spleen, pancreas, right adrenal and kidneys appear unremarkable. Prominence lef t adrenal gland without significant change from 2016 probably an adenoma There is no evidence of diverticulitis. Fluid throughout nondilated small bowel L4 and L5 vertebral bodies are sclerotic with disc space narrowing and subchondral regularity without significant change presumably degenerative in nature. IMPRESSION: Fluid throughout nondilated small bowel may indicate an enteritis
--- NOTE | 2020-07-09 12:19 | EDPHYS ---
Physician Documentation [facility] Name: Heather Coon Age: 50 yrs Sex: Female : 1970 Arrival Date: 07/09/2020 Time: 09:56 Bed 20 Private MD: ED Physician Jones Parham HPI: 07/09 12:12 This 50 yrs old Female presents to ER via Ambulatory with complaints of rn Nausea/Vomiting. 12:12 The patient presents to the emergency department with nausea, vomiting, abdominal pain. rn Onset: The symptoms/episode began/occurred today. Possible causes: bowel prep. The symptoms are aggravated by nothing. The symptoms are alleviated by nothing. Severity of symptoms: At their worst the symptoms were moderate in the emergency department the symptoms are unchanged. The patient has not experienced similar symptoms in the past. The patient has been recently seen by a physician:. Reports nausea/vomiting, abd pain and abd distension, is on day 3 of bowel prep for colonoscopy, no fever, called Dr. Luz, told to come here. . 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 - Social history:: Smoking status: Patient reports the use of cigarette tobacco products, smokes one pack cigarettes per day. - Family history:: not pertinent. - Hospitalizations: : No recent hospitalization is reported. ROS: 12:12 Constitutional: Negative for fever, chills, and weight loss, Eyes: Negative for injury, rn pain, redness, and discharge, Neck: Negative for injury, pain, and swelling, Cardiovascular: Negative for chest pain, palpitations, and edema, Respiratory: Negative for shortness of breath, cough, wheezing, and pleuritic chest pain, Abdomen/GI: + abd pain and vomiting/diarrhea : Negative for injury, bleeding, discharge, and swelling, MS/Extremity: Negative for injury and deformity, Skin: Negative for injury, rash, and discoloration, Neuro: Negative for headache, weakness, numbness, tingling, and seizure. Exam: 12:12 Constitutional: This is a well developed, well nourished patient who is awake, alert, rn seems uncomfortable Head/Face: Normocephalic, atraumatic. Eyes: Pupils equal round and reactive to light, extra-ocular motions intact. Lids and lashes normal. Conjunctiva and sclera are non-icteric and not injected. Cornea within normal limits. Periorbital areas with no swelling, redness, or edema. Cardiovascular: Regular rate and rhythm. No pulse deficits. Respiratory: No increased work of breathing, no retractions or nasal flaring. Abdomen/GI: soft, no focal tenderness, no masses Skin: Warm, dry MS/ Extremity: Pulses equal, no cyanosis. Neuro: Awake and alert, GCS 15 Vital Signs: 10:21 BP 158 / 95; Pulse 102; Resp 18 S; Temp 97.6(TE); Pulse Ox 100% on R/A; Weight 66.68 kg ca1 (R); Height 5 ft. 3 in. (160.02 cm); Pain 10/10; 11:41 BP 134 / 79; Pulse 82; Resp 16; Temp 98; Pulse Ox 97% ; bp 12:51 BP 126 / 77; Pulse 78; Resp 16; Temp 98; Pulse Ox 98% ; bp 10:21 Body Mass Index 26.04 (66.68 kg, 160.02 cm) ca1 MDM: 10:29 Patient medically screened. rn 12:12 Differential diagnosis: viral gastroenteritis, gastroenteritis, pain from bowel prep. rn Data reviewed: vital signs, nurses notes, lab test result(s), radiologic studies, CT scan, and as a result, I will discharge patient. Counseling: I had a detailed discussion with the patient and/or guardian regarding: the historical points, exam findings, and any diagnostic results supporting the discharge/admit diagnosis, lab results, radiology results, the need for outpatient follow up, to return to the emergency department if symptoms worsen or persist or if there are any questions or concerns that arise at home. Response to treatment: the patient's symptoms have mildly improved after treatment, and as a result, I will discharge patient. Special discussion: Based on the patient's Hx, exam, and Dx evaluation, there is no indication for emergent surgery or inpatient Tx. It is understood by the patient/guardian that if the Sx's persist or worsen they need to return immediately for re-evaluation. I discussed with the patient/guardian in detail that at this point there is no indication for admission to the hospital. It is understood, however, that if the symptoms persist or worsen the patient needs to return immediately for re-evaluation. ED course: NO acute findings, fluid-filled intestine, consistent with bowel prep, no obstruction or acute infection, will dc home with instructions to f/u with Dr. Luz as planned. 07/09 10:36 Order name: Basic Metabolic Panel; Complete Time: 11:41 rn 07/09 10:36 Order name: CBC with Diff; Complete Time: 11:41 rn 07/09 10:36 Order name: Hepatic Function; Complete Time: 11:41 rn 07/09 10:36 Order name: Lipase; Complete Time: 11:41 rn 07/09 10:36 Order name: CT Abd/Pelvis - IV Contrast Only; Complete Time: 11:41 rn 07/09 10:36 Order name: IV Saline Lock; Complete Time: 10:55 rn 07/09 10:36 Order name: Labs collected and sent; Complete Time: 10:55 rn Administered Medications: 10:50 Drug: NS 0.9% 1000 ml Route: IV; Rate: 1000 ml; Site: right forearm; bp 12:53 Follow up: IV Status: Completed infusion; IV Intake: 1000ml bp 10:50 Drug: Phenergan 12.5 mg Route: IVP; Site: right forearm; bp 11:43 Follow up: Response: Pain is decreased bp 10:50 Drug: Demerol 25 mg Route: IVP; Site: right forearm; bp 11:44 Follow up: Response: Pain is decreased bp Disposition: 07/09/20 12:18 Discharged to Home. Impression: Vomiting, unspecified, Dehydration. - Condition is Stable. - Discharge Instructions: Dehydration, Adult, Nausea and Vomiting, Adult, Colonoscopy. - Prescriptions for Zofran ODT 4 mg Oral tablet,disintegrating - place 1 tablet by TRANSLINGUAL route every 8 hours As needed; 20 tablet. - Medication Reconciliation Form, Thank You Letter, Antibiotic Education, Prescription Opioid Use form. - Follow up: Private Physician; When: As needed; Reason: Recheck today's complaints, Re-evaluation by your physician. - Problem is new. - Symptoms have improved. Signatures: Dispatcher [employer] Jones Larose MD MD rn Peltier, Brian RN RN bp Gonzalez, Cheryl RN RN [facility] Corrections: (The following items were deleted from the chart) 12:53 12:18 07/09/2020 12:18 Discharged to Home. Impression: Vomiting, unspecified; bp Dehydration. Condition is Stable. Forms are Medication Reconciliation Form, Thank You Letter, Antibiotic Education, Prescription Opioid Use. Follow up: Private Physician; When: As needed; Reason: Recheck today's complaints, Re-evaluation by your physician. Problem is new. Symptoms have improved. rn
--- NOTE | 2020-07-09 12:19 | ER ---
Nurse's Notes [facility] Name: Heather Coon Age: 50 yrs Sex: Female : 1970 Arrival Date: 07/09/2020 Time: 09:56 Bed 20 Private MD: Diagnosis: Vomiting, unspecified;Dehydration Presentation: 07/09 10:21 Chief complaint: Patient states: Prepping for Colonoscopy tomorrow 07/10/2020. I was ca1 doing the clean out since Thursday. Started feeling abdominal pain and vomiting yesterday, BM is more gassy and very very little. Called Dr. Luz this morning and was told to come to the ER. Coronavirus screen: Client denies travel out of the [place] in the last 14 days. nausea, vomiting. Client presents with at least one sign or symptom that may indicate coronavirus-19. Standard/surgical mask placed on the client. Provider contacted for isolation considerations. Ebola Screen: Patient negative for fever greater than or equal to 101.5 degrees Fahrenheit, and additional compatible Ebola Virus Disease symptoms Patient denies exposure to infectious person. Patient denies travel to an Ebola-affected area in the 21 days before illness onset. No symptoms or risks identified at this time. Initial Sepsis Screen: Does the patient meet any 2 criteria? No. Patient's initial sepsis screen is negative. Does the patient have a suspected source of infection? No. Patient's initial sepsis screen is negative. Risk Assessment: Do you want to hurt yourself or someone else? Patient reports no desire to harm self or others. Onset of symptoms was July 08, 2020. 10:21 Method Of Arrival: Ambulatory ca1 10:21 Acuity: ANDER 3 ca1 Triage Assessment: 10:30 General: Appears in no apparent distress. uncomfortable, Behavior is cooperative, bp appropriate for age, anxious. Pain: Denies pain. EENT: No deficits noted. Neuro: No deficits noted. Cardiovascular: No deficits noted. Respiratory: No deficits noted. GI: Reports nausea, vomiting. : No signs and/or symptoms were reported regarding the genitourinary system. Derm: No deficits noted. Musculoskeletal: No deficits noted. 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 - Social history:: Smoking status: Patient reports the use of cigarette tobacco products, smokes one pack cigarettes per day. - Family history:: not pertinent. - Hospitalizations: : No recent hospitalization is reported. Screenin:30 Abuse screen: Denies threats or abuse. Denies injuries from another. Nutritional bp screening: No deficits noted. Tuberculosis screening: No symptoms or risk factors identified. Fall Risk None identified. Assessment: 10:30 General: SEE TRIAGE NOTE. GI: Abdomen is non-distended. bp 11:44 Reassessment: PT RETURNED FROM CT. ALL CURRENT ORDERS COMPLETED. bp 12:51 Reassessment: PT D/C HOME AMBULATORY, ATTEMPTING TO DECLINE DISCHARGE. PT AGITATED bp STATING "I KNOW MY BODY, I NEED TO BE ADMITTED". PT DX WITH DEHYDRATION. Vital Signs: 10:21 BP 158 / 95; Pulse 102; Resp 18 S; Temp 97.6(TE); Pulse Ox 100% on R/A; Weight 66.68 kg ca1 (R); Height 5 ft. 3 in. (160.02 cm); Pain 10/10; 11:41 BP 134 / 79; Pulse 82; Resp 16; Temp 98; Pulse Ox 97% ; bp 12:51 BP 126 / 77; Pulse 78; Resp 16; Temp 98; Pulse Ox 98% ; bp 10:21 Body Mass Index 26.04 (66.68 kg, 160.02 cm) ca1 ED Course: 09:56 Patient arrived in ED. as 10:25 Triage completed. ca1 10:27 Arm band placed on left wrist. ca1 10:29 Jones Parham MD is Attending Physician. rn 10:30 Patient has correct armband on for positive identification. Bed in low position. Call bp light in reach. Side rails up X2. 10:33 Torrey Whittington, RN is Primary Nurse. bp 10:50 Inserted saline lock: 20 gauge in right forearm, using aseptic technique. Blood bp collected. 11:15 CT Abd/Pelvis - IV Contrast Only In Process Unspecified. EDMS 12:50 No provider procedures requiring assistance completed. IV discontinued, intact, bp bleeding controlled, No redness/swelling at site. Pressure dressing applied. Administered Medications: 10:50 Drug: NS 0.9% 1000 ml Route: IV; Rate: 1000 ml; Site: right forearm; bp 12:53 Follow up: IV Status: Completed infusion; IV Intake: 1000ml bp 10:50 Drug: Phenergan 12.5 mg Route: IVP; Site: right forearm; bp 11:43 Follow up: Response: Pain is decreased bp 10:50 Drug: Demerol 25 mg Route: IVP; Site: right forearm; bp 11:44 Follow up: Response: Pain is decreased bp Intake: 12:53 IV: 1000ml; Total: 1000ml. bp Outcome: 12:18 Discharge ordered by . rn 12:50 Discharged to home ambulatory. bp 12:50 Condition: stable 12:50 Discharge instructions given to patient, Instructed on discharge instructions, follow up and referral plans. medication usage, Demonstrated understanding of instructions, follow-up care, medications, Prescriptions given X 1. 12:53 Patient left the ED. bp Signatures: Dispatcher [employer] EDMS Marilin Orellana Roman, MD MD rn Peltier, Brian RN RN bp Cheryl Gonzalez RN RN ca1 Corrections: (The following items were deleted from the chart) 10:28 10:21 Pulse 102bpm; Resp 18bpm; Spontaneous; Pulse Ox 100% RA; Temp 97.6F Temporal; ca1 66.68 kg Reported; Height 5 ft. 3 in.; BMI: 26.0; Pain 04/28; ca1
[2020-07-10 21:31] VITALS: TEMP 98
[2020-07-10 21:33] VITALS: BP 126/77; O2SAT 98
== END 2020-07-09 12:53 | disposition home or self-care (01) ==
LOC: ER 09:51
DX: E86.0 Dehydration (principal); I10 Essential (primary) hypertension; I25.2 Old myocardial infarction; F17.210 Nicotine dependence, cigarettes, uncomplicated; Z88.5 Allergy status to narcotic agent; Z91.018 Allergy to other foods
CPT/HCPCS: 96361; 85025; 80048; 36415; 82565; 80076; 83690; 74177; 96375; 96374; 99284; Q9967; J2550; J2175; J7030

== ENCOUNTER 2020-07-10 11:23 | Day surgery (SDC) | payer OTHER ==
--- OUTSIDE RECORDS SUMMARY | 2020-07-10 11:30 | XMS REPORT | Continuity of Care Document ---
:1970 Author Organization [facility] t Address [address] [place] [address] Care Team Providers Name Role Phone Dima [...] Department ID 2019-03-09 2019-03-09 LEIGH Zimmerman [id number] 00:00:00 00:00:00 Yehuda Harrell [id number] [employer] [id number] [facility] [phone] nal 092 Building Results This patient has no known results.
[2020-07-10] MEDS ORDERED: Ringers Lactate 1,000 ML IV ONE (11:56)
[2020-07-10] MEDS ORDERED: MIDAZOLAM HCL 2 MG/2 ML INJ ONE ×3 (12:56→13:36)
[2020-07-10] MEDS ORDERED: FENTANYL CITR 100 MCG/2 ML ONE (12:56)
[2020-07-10] MEDS ORDERED: KETAMINE HCL 500 MG/5 ML VIAL ONE (12:57)
[2020-07-10] MEDS ORDERED: ONDANSETRON 4 MG/2 ML VIAL ONE (13:13)
--- NOTE | 2020-07-10 13:29 | ENDO RPT ---
[address], [address] COLONOSCOPY PROCEDURE REPORT EXAM DATE: 07/10/2020 PATIENT NAME: Heather Coon MR #: [id number] BIRTHDATE: 1970 ATTENDING: Ronnell Luz DR STATUS: outpatient SHAMPOOER: Jose Bolanos and Dana CAMACHO INDICATIONS: The patient is a 50 yr old Female here for a colonoscopy due to colon cancer screening PROCEDURE PERFORMED: Screening Colonoscopy MEDICATIONS: Per Anesthesia. ESTIMATED BLOOD LOSS: None CONSENT: The patient understands the risks and benefits of the procedure and understands that these risks include, but are not limited to: sedation, allergic reaction, infection, perforation and/or bleeding. Alternative means of evaluation and treatment include, among others: physical exam, x-rays, and/or surgical intervention. The patient elects to proceed with this endoscopic procedure. DESCRIPTION OF PROCEDURE: During intra-op preparation period all mechanical medical equipment was checked for proper function. Hand hygiene and appropriate measures for infection prevention was taken. Procedure, possible complications, alternatives including, but not limited to possibility of bleeding, perforation, tear, infection, sepsis, need for surgery, need for blood transfusion, were explained to the patient. After the risks, benefits and alternatives of the procedure were thoroughly explained, Informed consent was verified, confirmed and timeout was successfully executed by the treatment team. The patient was placed in the left lateral position. A digital rectal exam was performed and revealed internal hemorrhoids. After appropriate level of anesthesia, the scope was passed. The EC-[id number] ([id number]) endoscope was introduced through the anus and advanced to the cecum, which was identified by both the appendix and ileocecal valve. The quality of the prep was inadequate. The instrument was then slowly withdrawn as the colon was fully examined. Scope withdrawal time was 15 minutes. COLON FINDINGS: Small internal hemorrhoids were found. Moderate diverticulosis was noted in the sigmoid colon. No bleeding was noted from the diverticulosis. Retroflexed views revealed no abnormalities. The scope was then completely withdrawn from the patient and the procedure terminated. ADVERSE EVENTS: There were no complications. IMPRESSIONS: 1. Small internal hemorrhoids 2. Moderate diverticulosis was noted in the sigmoid colon RECOMMENDATIONS: 1. Baruim Enema and Fecal FIT Test 2. avoid NSAIDS for 2 weeks 3. follow-up: office 2 week(s) 4. Monitor for any evidence of rectal bleeding. 5. yearly hemoquant 6. increase dietary water 7. hemorrhoidal hygiene 8. low fiber / diverticular diet RECALL: Will need barium enema and fecal FIT test Ronnell Luz DR eSigned: Ronnell Luz DR 07/10/2020 1:29 PM cc: CPT CODES: ICD9 CODES: PATIENT NAME: Heather Coon MR#: [id number]
[2020-07-10 14:04] VITALS: TEMP 97.2
[2020-07-10 14:09] VITALS: BP 118/80; O2SAT 95
== END 2020-07-10 14:17 | disposition home or self-care (01) ==
LOC: OR 11:23
PROVIDERS: ATTEND Surgery
PROC: 0DJD8ZZ Inspection of Lower Intestinal Tract, Via Natural or Artificial Opening Endoscopic (ICD-10-PCS; principal; 2020-07-10 12:30)
DX: K57.30 Diverticulosis of large intestine without perforation or abscess without bleeding (principal); Z12.11 Encounter for screening for malignant neoplasm of colon; K64.9 Unspecified hemorrhoids; Z72.0 Tobacco use; J44.9 Chronic obstructive pulmonary disease, unspecified; I10 Essential (primary) hypertension; Z20.828 Contact with and (suspected) exposure to other viral communicable diseases; K21.9 Gastro-esophageal reflux disease without esophagitis; M19.90 Unspecified osteoarthritis, unspecified site
CPT/HCPCS: 45378; U0002; J2250 ×3; J3010; J7120; J2405

== ENCOUNTER 2020-07-28 13:46 | Emergency (ER) | payer OTHER ==
--- OUTSIDE RECORDS SUMMARY | 2020-07-28 13:48 | XMS REPORT | Continuity of Care Document ---
:1970 Author Organization [facility] t Address [address] [place] [address] Care Team Providers Name Role Phone Dima [...] Department ID 2019-03-09 2019-03-09 LEIGH Zimmerman [id number] 00:00:00 00:00:00 Yehuda Harrell [id number] [place] [id number] [facility] [phone] [facility] 092 Building Results This patient has no known results.
[2020-07-28 14:19] LABS: Absolute Lymphocytes (CBC) 2.3 K/uL (0.7-4.9); Basophils % 0.9 % (0-1.3); Hematocrit 42.6 % (36.0-45.0); MPV 6.5 fL (7.6-11.3); RBC Red Blood Cell Count 5.15 M/uL (3.86-4.86)
[2020-07-28 14:32] LABS: ALT/SGPT 15 U/L (12-78); AST/SGOT 24 U/L (15-37); Albumin 4.4 g/dL (3.4-5.0); Alkaline Phosphatase 76 U/L (45-117); BUN Blood Urea Nitrogen 11 mg/dL (7-18); Bicarbonate 22 mmol/L (21-32); Bilirubin Direct < 0.1 mg/dL (0-0.2); Bilirubin Total 0.6 mg/dL (0.2-1.0); Glucose Level 125 mg/dL (74-106); Potassium 3.5 mmol/L (3.5-5.1); Protein, Total 8.4 g/dL (6.4-8.2); Sodium Level 139 mmol/L (136-145)
[2020-07-28] MEDS ORDERED: LORazepam 2 MG/ML VIAL ONE (15:30)
[2020-07-28] MEDS ORDERED: NA CHLORIDE 0.9% 1,000 ML ONE (15:31)
[2020-07-28] MEDS ORDERED: ZIPRASIDONE MESYLA 20 MG/VIAL IM ONE (15:57)
[2020-07-28] MEDS ORDERED: WATER FOR INJ,STERILE 10 ML ONE (15:58)
[2020-07-28] MEDS ORDERED: HALOPERIDOL LACT 5 MG/ML INJ ONE (16:04)
--- NOTE | 2020-07-28 16:40 | RAD REPORT ---
EXAM DESCRIPTION: CT - Head Brain Wo Cont - 07/28/2020 4:17 pm CLINICAL HISTORY: ams COMPARISON: Head Brain Wo Cont dated 01/26/2017 TECHNIQUE: Axial 5 mm thick images of the head were obtained without IV contrast. All CT scans are performed using dose optimization technique as appropriate and may include automated exposure control or mA/KV adjustment according to patient size. FINDINGS: No intracranial hemorrhage, mass, edema or shift of mid-line structures. No acute infarcti on changes seen. No abnormal extra-axial fluid collections. Ventricles are normal. Mastoid air cells are clear. No significant paranasal sinus finding. No acute bony findings. IMPRESSION: Negative non-contrast CT head examination for acute or significant finding.
[2020-07-28 18:30] LABS: Barbiturates NEGATIVE (NEGATIVE); Benzodiazepines NEGATIVE (NEGATIVE); Cocaine POSITIVE (NEGATIVE); METHAMPHETAM NEGATIVE (NEGATIVE); Methadone NEGATIVE (NEGATIVE); Opiates NEGATIVE (NEGATIVE); Phencyclidine NEGATIVE (NEGATIVE); THC Cannibis NEGATIVE (NEGATIVE)
--- NOTE | 2020-07-28 18:36 | ER ---
Nurse's Notes [facility] Name: Heather oCon Age: 50 yrs Sex: Female : 1970 Arrival Date: 07/28/2020 Time: 13:47 Bed 3 Private MD: Diagnosis: Cocaine abuse with intoxication Presentation: 07/28 13:47 Chief complaint: EMS states: ACTING INTOXICATED AFTER STARTING LEVITERACETAM. bp Coronavirus screen: At this time, the client does not indicate any symptoms associated with coronavirus-19. Ebola Screen: No symptoms or risks identified at this time. Initial Sepsis Screen: Does the patient meet any 2 criteria? Altered Mental Status. HR > 90 bpm. Yes Does the patient have a suspected source of infection? No. Patient's initial sepsis screen is negative. Risk Assessment: Do you want to hurt yourself or someone else? Patient reports no desire to harm self or others. Onset of symptoms is unknown. 13:47 Method Of Arrival: EMS: [facility] bp 13:47 Acuity: ANDER 2 bp Triage Assessment: 13:52 General: Appears distressed, comfortable, Behavior is cooperative, agitated, anxious. bp Pain: Denies pain. EENT: No deficits noted. Neuro: Level of Consciousness is awake, alert, confused, Oriented to person. Cardiovascular: No deficits noted. Respiratory: No deficits noted. GI: No signs and/or symptoms were reported involving the gastrointestinal system. : No signs and/or symptoms were reported regarding the genitourinary system. Derm: No deficits noted. Musculoskeletal: No deficits noted. Historical: - Allergies: 13:52 Green Tea; bp 13:52 Prozac; bp - Home Meds: 13:52 Keppra Oral [Active]; bp - PMHx: 13:52 Anxiety; Bipolar disorder; Chronic pain; Depression; Diverticulitis; Herniated Back bp Disc; Hypertension; intestinal mass; Myocardial infarction; pt reports hx of seizures; Spastic Muscles; - Immunization history:: Adult Immunizations unknown. - Social history:: Smoking status: Patient reports the use of cigarette tobacco products, unknown amount. Screenin:54 Abuse screen: Denies threats or abuse. Denies injuries from another. Nutritional bp screening: No deficits noted. Tuberculosis screening: No symptoms or risk factors identified. Fall Risk Fall in past 12 months (25 points). Secondary diagnosis (15 points) seizures, IV access (20 points). Ambulatory Aid- None/Bed Rest/Nurse Assist (0 pts). Gait- Normal/Bed Rest/Wheelchair (0 pts) Mental Status- Oriented to own ability (0 pts). Total Costello Fall Scale indicates High Risk Score (45 or more points). Fall prevention measures have been instituted. Side Rails Up X 2 Placed Close to Nursing Station Frequent Obs/Assessments Occuring As available patient and family educated on Fall Prevention Program and Strategies. Assessment: 13:54 General: SEE TRIAGE NOTE. bp 15:06 Reassessment: PT REFUSING TO REMAIN IN BED AND REMOVING MONITORING EQUIPMENT. bp AMBULATING WITH STEADY GAIT AND REQUIRING FREQUENT REDIRECTION TO REMAIN IN ROOM. 15:26 Reassessment: PT ATTEMPTING TO [facility], AMBULATORY WITH STEADY GAIT. VERBALLY REDIRECTED bp TO BED BY RN. 15:55 Reassessment: PT D/C OWN PIV, ATTEMPTING TO [facility]. REDIRECTED TO BED BY STAFF, NEW PIV bp PLACED. 17:23 Reassessment: PT D/C OWN PIV AND ATTEMPTING TO [facility]. REQUIRING PHYSICAL REDIRECTION BY STAFF AND PROVIDER TO REMAIN IN ER. 18:44 Reassessment: Notified pt's , Beny, that pt is ready for discharge. Beny reports jl7 he will be here in about 20 minutes and would like to speak to the provider. ERP notified and will talk to him when he gets here. 19:00 Reassessment: PT ATTEMPTING TO ENTER OTHER PT ROOMS, WHEN PREVENTED PT FORCED WAY INTO AMBULANCE FOYER AND ACTIVATED FIRE PULL STATION. WHEN ATTEMPTING TO RETURN PT TO ROOM PT BECAME COMBATIVE, REQUIRING PHYSICAL INTERVENTION TO RETURN PT TO BED. TYLER BREWSTER CALLED AND [facility] PAGED. 19:22 Reassessment: PT RELEASED TO [facility]. bp Vital Signs: 13:47 BP 152 / 88; Pulse 108; Resp 20; Temp 98; Pulse Ox 99% ; bp 15:54 BP 128 / 98; Pulse 125; Resp 17; Pulse Ox 100% ; bp 15:54 BP 128 / 98; Pulse 125; Resp 17; Pulse Ox 100% ; bp NIH Stroke Scale Scores: 13:52 NIHSS Score: 1 bp ED Course: 13:47 Patient arrived in ED. bp 13:48 Octaviano Keith PA is PHCP. jm 13:48 Jones Parham MD is Attending Physician. jmm 13:51 Triage completed. bp 13:54 Arm band placed on. bp 13:54 Patient has correct armband on for positive identification. Bed in low position. Call bp light in reach. Side rails up X2. 13:59 Torrey Whittington, RN is Primary Nurse. bp 13:59 Inserted saline lock: 20 gauge in right forearm, using aseptic technique. Blood bp collected. 14:02 Initial lab(s) drawn, by me, sent to lab. em1 14:25 EKG done, by ED staff, reviewed by Octaviano HURST. em1 16:17 CT Head Brain wo Cont In Process Unspecified. EDMS 19:22 No provider procedures requiring assistance completed. Patient did not have IV access bp during this emergency room visit. Administered Medications: 15:19 Drug: Ativan 1 mg Route: IVP; Site: right forearm; bp 15:54 Follow up: Response: No adverse reaction bp 15:20 Drug: NS 0.9% 1000 ml Route: IV; Rate: 1 bolus; Site: right forearm; bp 19:23 Follow up: IV Status: Completed infusion; IV Intake: 1000ml bp 15:45 Drug: Geodon 10 mg Route: IM; Site: right vastus lateralis; bp 15:54 Follow up: BP 128 / 98; Pulse 125 bpm; Resp 17 bpm; Pulse Ox 100% bp 15:53 Drug: HALdol 5 mg Route: IVP; Site: left forearm; bp 15:54 Follow up: Response: No adverse reaction bp Intake: 19:23 IV: 1000ml; Total: 1000ml. bp Outcome: 18:35 Discharge ordered by . m 19:22 Discharged to Law Enforcement bp 19:22 Condition: stable 19:22 Discharge instructions given to patient, police, Instructed on discharge instructions, follow up and referral plans. Demonstrated understanding of instructions, follow-up care. 19:24 Patient left the ED. bp NIH Stroke Scale - NIH Stroke Score Date: 07/28/2020 Time: 13:52 Total Score = 1 1a. Level of Consciousness (LOC) - 0(Alert) 1b. Level of Consciousness (LOC) (Year \T\ Age) - 1(One) 1c. LOC Commands (Open \T\ Closes Eyes/Utility Spray Operator) - 0(Both) 2. Best Gaze (Lateral Gaze Paresis) - 0(Normal) 3. Visual Field Loss - 0(No visual loss) 4. Facial Palsy - 0(Normal) 5a. Left Arm: Motor (10-second hold) - 0(No drift) 5b. Right Arm: Motor (10-second hold) - 0(No drift) 6a. Left Leg: Motor (5-second hold - always test supine) - 0(No drift) 6b. Right Leg: Motor (5-second hold - always test supine) - 0(No drift) 7. Limb Ataxia (finger/nose \T\ heel/rm - test with eyes open) - 0(Absent) 8. Sensory Loss (pinprick arms/legs/face) - 0(Normal) 9. Best Language: Aphasia (description/naming/reading) - 0(No aphasia) 10. Dysarthria (speech clarity - read or repeat words) - 0(Normal) 11. Extinction and Inattention (visual/tactile/auditory/spatial/personal) - 0(No abnormality) Initials: bp Signatures: Dispatcher [employer] EDOctaviano Newman PA PA jmm Martinez, Eric em1 Clint Patton, RN RN jl7 Torrey Whittington, RN RN bp
--- NOTE | 2020-07-28 18:36 | EDPHYS ---
Physician Documentation [facility] Name: Heather Coon Age: 50 yrs Sex: Female : 1970 Arrival Date: 07/28/2020 Time: 13:47 Bed 3 Private MD: ED Physician Jones Parham HPI: 07/28 13:59 This 50 yrs old Female presents to ER via EMS with complaints of Altered jmm Mental Status. 13:59 The patient presents with confusion. Onset: The symptoms/episode began/occurred today. jmm Possible causes: new medication. Associated signs and symptoms: Pertinent negatives: abdominal pain, chest pain, dizziness. This is a 50 year old female with a history of bipolar, chronic pain, depression, diverticulitis, that presents to the ED with complaints on confsion. Recently began taking keppra. . Historical: - Allergies: 13:52 Green Tea; bp 13:52 Prozac; bp - Home Meds: 13:52 Keppra Oral [Active]; bp - PMHx: 13:52 Anxiety; Bipolar disorder; Chronic pain; Depression; Diverticulitis; Herniated Back bp Disc; Hypertension; intestinal mass; Myocardial infarction; pt reports hx of seizures; Spastic Muscles; - Immunization history:: Adult Immunizations unknown. - Social history:: Smoking status: Patient reports the use of cigarette tobacco products, unknown amount. ROS: 13:59 Constitutional: Negative for fever, chills, and weight loss, Cardiovascular: Negative jmm for chest pain, palpitations, and edema, Respiratory: Negative for shortness of breath, cough, wheezing, and pleuritic chest pain. 13:59 Neuro: Positive for altered mental status. 13:59 All other systems are negative. Exam: 13:59 Constitutional: This is a well developed, well nourished patient who is awake, alert, jmm and in no acute distress. Head/Face: atraumatic. Eyes: EOMI, no conjunctival erythema appreciated ENT: Moist Mucus Membranes Neck: Trachea midline, Supple Chest/axilla: Normal chest wall appearance and motion. Cardiovascular: Regular rate and rhythm. No edema appreciated Respiratory: Normal respirations, no respiratory distress appreciated Abdomen/GI: Non distended, soft Back: Normal ROM Skin: General appearance color normal MS/ Extremity: Moves all extremities, no obvious deformities appreciated, no edema noted to the lower extremities Neuro: Awake and alert, normal gait Psych: Behavior is normal, Mood is normal, Patient is cooperative and pleasant 14:16 ECG was reviewed by the Attending Physician. [facility] Vital Signs: 13:47 BP 152 / 88; Pulse 108; Resp 20; Temp 98; Pulse Ox 99% ; bp 15:54 BP 128 / 98; Pulse 125; Resp 17; Pulse Ox 100% ; bp 15:54 BP 128 / 98; Pulse 125; Resp 17; Pulse Ox 100% ; bp NIH Stroke Scale Scores: 13:52 NIHSS Score: 1 bp MDM: 13:53 Patient medically screened. [facility] 18:34 Data reviewed: vital signs, nurses notes. Counseling: I had a detailed discussion with [facility] the patient and/or guardian regarding: the historical points, exam findings, and any diagnostic results supporting the discharge/admit diagnosis, lab results, radiology results, the need for outpatient follow up, to return to the emergency department if symptoms worsen or persist or if there are any questions or concerns that arise at home. ED course: Patient is a x o x 3 on discharge. UDS positive for cocaine. Advised to d/c drug use. Patient understood and agrees with the plan of care. . 07/28 13:53 Order name: Acetaminophen; Complete Time: 14:42 [facility] 07/28 13:53 Order name: Basic Metabolic Panel; Complete Time: 14:42 [facility] 07/28 13:53 Order name: CBC with Diff; Complete Time: 14:25 [facility] 07/28 13:53 Order name: ETOH Level; Complete Time: 14:42 [facility] 07/28 13:53 Order name: Hepatic Function; Complete Time: 14:42 [facility] 07/28 13:53 Order name: PT-INR; Complete Time: 14:46 [facility] 07/28 13:53 Order name: Ptt, Activated; Complete Time: 14:46 [facility] 07/28 13:53 Order name: Salicylate; Complete Time: 14:46 [facility] 07/28 13:53 Order name: Urine Drug Screen; Complete Time: 18:32 [facility] 07/28 15:31 Order name: CT Head Brain wo Cont; Complete Time: 16:40 [facility] 07/28 15:39 Order name: AMMONIA; Complete Time: 16:21 [facility] 07/28 15:40 Order name: Depakote; Complete Time: 16:21 [facility] 07/28 15:40 Order name: Depakote 1 07/28 17:38 Order name: Urine Dipstick--Ancillary (enter results) 1 07/28 13:53 Order name: EKG; Complete Time: 13:54 [facility] 07/28 13:53 Order name: EKG - Nurse/Tech; Complete Time: 14:25 [facility] 07/28 13:53 Order name: IV Saline Lock; Complete Time: 14:02 [facility] 07/28 13:53 Order name: Labs collected and sent; Complete Time: 14:02 [facility] 07/28 13:53 Order name: Urine Dipstick-Ancillary (obtain specimen); Complete Time: 17:37 jm EC:16 Rate is 110 beats/min. Rhythm is regular. QRS Nemo is Normal. AK interval is normal. jmm QRS interval is normal. QT interval is normal. No Q waves. T waves are Inverted in leads aVL, aVR. No ST changes noted. Reviewed by me. Administered Medications: 15:19 Drug: Ativan 1 mg Route: IVP; Site: right forearm; bp 15:54 Follow up: Response: No adverse reaction bp 15:20 Drug: NS 0.9% 1000 ml Route: IV; Rate: 1 bolus; Site: right forearm; bp 19:23 Follow up: IV Status: Completed infusion; IV Intake: 1000ml bp 15:45 Drug: Geodon 10 mg Route: IM; Site: right vastus lateralis; bp 15:54 Follow up: BP 128 / 98; Pulse 125 bpm; Resp 17 bpm; Pulse Ox 100% bp 15:53 Drug: HALdol 5 mg Route: IVP; Site: left forearm; bp 15:54 Follow up: Response: No adverse reaction bp Disposition: 07/29 07:09 Co-signature as Attending Physician, Jones Parham MD. rn Disposition: 07/28/20 18:35 Discharged to Home. Impression: Cocaine abuse with intoxication. - Condition is Stable. - Discharge Instructions: Stimulant Use Disorder-Cocaine. - Medication Reconciliation Form, Thank You Letter, Antibiotic Education, Prescription Opioid Use form. - Follow up: Private Physician; When: 2 - 3 days; Reason: Recheck today's complaints, Continuance of care, Re-evaluation by your physician. NIH Stroke Scale - NIH Stroke Score Date: 07/28/2020 Time: 13:52 Total Score = 1 1a. Level of Consciousness (LOC) - 0(Alert) 1b. Level of Consciousness (LOC) (Year \T\ Age) - 1(One) 1c. LOC Commands (Open \T\ Closes Eyes/Flexographic Printing Press Operator) - 0(Both) 2. Best Gaze (Lateral Gaze Paresis) - 0(Normal) 3. Visual Field Loss - 0(No visual loss) 4. Facial Palsy - 0(Normal) 5a. Left Arm: Motor (10-second hold) - 0(No drift) 5b. Right Arm: Motor (10-second hold) - 0(No drift) 6a. Left Leg: Motor (5-second hold - always test supine) - 0(No drift) 6b. Right Leg: Motor (5-second hold - always test supine) - 0(No drift) 7. Limb Ataxia (finger/nose \T\ heel/rm - test with eyes open) - 0(Absent) 8. Sensory Loss (pinprick arms/legs/face) - 0(Normal) 9. Best Language: Aphasia (description/naming/reading) - 0(No aphasia) 10. Dysarthria (speech clarity - read or repeat words) - 0(Normal) 11. Extinction and Inattention (visual/tactile/auditory/spatial/personal) - 0(No abnormality) Initials: bp Signatures: Dispatcher [employer] EDOctaviano Newman PA PA jmm Nieto, Roman, MD MD rn Peltier, Brian, RN RN bp Corrections: (The following items were deleted from the chart) 07/28 19:24 18:35 07/28/2020 18:35 Discharged to Home. Impression: Cocaine abuse with bp intoxication. Condition is Stable. Forms are Medication Reconciliation Form, Thank You Letter, Antibiotic Education, Prescription Opioid Use. Follow up: Private Physician; When: 2 - 3 days; Reason: Recheck today's complaints, Continuance of care, Re-evaluation by your physician. willis
[2020-07-28 19:35] VITALS: TEMP 98
[2020-07-28 19:36] VITALS: BP 128/98; O2SAT 100
[2020-07-28 20:07] LABS: Urine Blood 2+ (NEG); Urine Glucose NEGATIVE (NEG); Urine Protein 2+ (NEG); Urine Specific Gravity 1.025 (1.005-1.030)
--- NOTE | 2020-07-29 07:25 | EKG ---
Test Date: 2020-07-28 Test Time: 14:11:27 Braiding Machine Tender: PAMELA MEASUREMENT RESULTS: Intervals: Rate: 110 NV: 130 QRSD: 76 QT: 342 QTc: 462 [place]: P: 82 NV: 130 QRS: 108 T: 73 INTERPRETIVE STATEMENTS: Sinus tachycardia Right atrial enlargement Lateral infarct, age undetermined Abnormal ECG Compared to ECG 05/15/2020 21:06:56 Atrial abnormality now present Myocardial infarct finding now present Sinus rhythm no longer present Right-axis deviation no longer present Electronically Signed On 07-29-20 07:24:04 STREETCAR REPAIRER by Migel Warren
== END 2020-07-28 19:24 | disposition home or self-care (01) ==
LOC: ER 13:46
DX: F14.129 Cocaine abuse with intoxication, unspecified (principal); F17.210 Nicotine dependence, cigarettes, uncomplicated; F31.9 Bipolar disorder, unspecified; F41.9 Anxiety disorder, unspecified; G89.29 Other chronic pain; I10 Essential (primary) hypertension; I25.2 Old myocardial infarction
CPT/HCPCS: 93005; 85025; 80048; 36415; 80320; 82140; 80329 ×2; 85610; 80076; 80164; 80307 ×8; 85730; 81003; 70450; 96372; 99284; J1630; J3486; J7030

== ENCOUNTER 2020-08-06 09:10 | Emergency (ER) | payer OTHER ==
--- OUTSIDE RECORDS SUMMARY | 2020-08-06 09:26 | XMS REPORT | Continuity of Care Document ---
:1970 Author Organization [facility] t Address [address] [place] [address] Care Team Providers Name Role Phone Dima [...] Department ID 2019-03-09 2019-03-09 LEIGH Zimmerman [id number] 00:00:00 00:00:00 Yehuda Harrell [id number] [place] [id number] [facility] [phone] [facility] [address] Building Results This patient has no known results.
[2020-08-06 10:13] LABS: Basophils % 1.5 % (0-1.3); Hematocrit 35.7 % (36.0-45.0); MPV 6.5 fL (7.6-11.3); RBC Red Blood Cell Count 4.32 M/uL (3.86-4.86)
[2020-08-06 10:17] LABS: Protime INR 0.96
[2020-08-06] MEDS ORDERED: DIAZEPAM 10 MG/2 ML INJ SYRINGE ONE (10:20)
[2020-08-06 10:32] LABS: ALT/SGPT 14 U/L (12-78); AST/SGOT 11 U/L (15-37); Albumin 3.5 g/dL (3.4-5.0); Alkaline Phosphatase 64 U/L (45-117); BUN Blood Urea Nitrogen 9 mg/dL (7-18); Bicarbonate 26 mmol/L (21-32); Bilirubin Direct 0.1 mg/dL (0-0.2); Bilirubin Total 0.3 mg/dL (0.2-1.0); Glucose Level 95 mg/dL (74-106); Magnesium 2.2 mg/dL (1.8-2.4); NT PRO-BNP 359 pg/mL (<125); Potassium 4.1 mmol/L (3.5-5.1); Sodium Level 139 mmol/L (136-145); Troponin (Emerg Dept Use Only) < 0.02 ng/mL (0.0-0.045)
[2020-08-06] MEDS ORDERED: PROMETHAZINE INJ 25 MG/ML AMP ONE (10:32)
--- NOTE | 2020-08-06 11:23 | RAD REPORT ---
EXAM DESCRIPTION: RAD - Chest Single View - 08/06/2020 11:03 am CLINICAL HISTORY: CHEST PAIN COMPARISON: June 22, 2001 TECHNIQUE: AP portable chest image was obtained 08/06/2020 11:03 am . FINDINGS: No mass or consolidations seen. Interstitial pattern is not substantially different from c omparison. Heart and vasculature are normal. No measurable pleural effusion and no pneumothorax. No a cute bony abnormality seen. No acute aortic findings suspected. IMPRESSION: No acute cardiopulmonary process. No significant change from comparison study.
--- NOTE | 2020-08-06 11:41 | RAD REPORT ---
EXAM DESCRIPTION: CT - Head Brain Wo Cont - 08/06/2020 11:23 am CLINICAL HISTORY: DIZZINESS COMPARISON: Head angio dated 08/06/2020; Head Brain Wo Cont dated 07/28/2020; Chest Single View dated TECHNIQUE: Axial 5 mm thick images of the head were obtained without IV contrast. All CT scans are performed using dose optimization technique as appropriate and may include automated exposure control or mA/KV adjustment according to patient size. FINDINGS: No intracranial hemorrhage, mass, edema or shift of mid-line structures. No acute infarcti on changes seen. No abnormal extra-axial fluid collections. Ventricles are normal. Mastoid air cells are clear. Mucosal thickening has worsened in the left maxillary sinus since the [facility] study. No air-fluid level seen. No acute bony findings. IMPRESSION: No acute intracranial finding. Worsening of the left maxillary sinus mucosal thickening since July 28. MR imaging could be performed if there are ongoing concerns for CT occult CVA.
--- NOTE | 2020-08-06 11:42 | RAD REPORT ---
EXAM DESCRIPTION: CT - Head angio - 08/06/2020 11:23 am CLINICAL HISTORY: DIZZINESS, stroke-like symptoms TECHNIQUE: During dynamic enhancement using nonionic IV contrast, axial 1 millimeter thick images of the head were obtained. Sagittal and axial reconstruction images were generated using MIP technique and reviewed. All CT scans are performed using dose optimization technique as appropriate and may include automated exposure control or mA/KV adjustment according to patient size. COMPARISON: CT head same date FINDINGS: No aneurysm or vascular malformation identified. Major venous sinuses are patent. No stenosis, named branch occlusion, vasculitis or other significant vascular finding identifiable. IMPRESSION: Negative CT angio head examination.
--- NOTE | 2020-08-06 11:43 | RAD REPORT ---
EXAM DESCRIPTION: CT - Neck Angio - 08/06/2020 11:23 am CLINICAL HISTORY: dizziness, stroke-like symptoms TECHNIQUE: During dynamic enhancement using nonionic IV contrast, axial 2 mm thick images of the nec k were obtained. Sagittal and axial reconstruction images were generated using MIP technique and revi ewed. All CT scans are performed using dose optimization technique as appropriate and may include automated exposure control or mA/KV adjustment according to patient size. COMPARISON: CT head same date, CT angio head same date FINDINGS: No aneurysm or vascular malformation identified. No carotid or vertebral dissection. No aortic arch or great vessel origin abnormality seen. Vertebral artery origins unremarkable as well . No stenosis, vasculitis or other significant carotid artery finding. No focal abnormality of either vertebral artery. Basilar artery is normal. IMPRESSION: Negative CT angio neck examination.
[2020-08-06 12:35] LABS: Barbiturates NEGATIVE (NEGATIVE); Benzodiazepines POSITIVE (NEGATIVE); Cocaine NEGATIVE (NEGATIVE); METHAMPHETAM NEGATIVE (NEGATIVE); Methadone NEGATIVE (NEGATIVE); Opiates NEGATIVE (NEGATIVE); Phencyclidine NEGATIVE (NEGATIVE); THC Cannibis NEGATIVE (NEGATIVE)
[2020-08-06] MEDS ORDERED: CODEINE 30MG/APAP 300MG TAB ONE (12:43)
[2020-08-06 13:18] LABS: Urine Blood TRACE (NEG); Urine Glucose NEGATIVE (NEG); Urine Protein NEGATIVE (NEG); Urine Specific Gravity 1.015 (1.005-1.030)
--- NOTE | 2020-08-06 13:26 | ER ---
Nurse's Notes [facility] Name: Heather Coon Age: 50 yrs Sex: Female : 1970 Arrival Date: 08/06/2020 Time: 09:11 Bed 13 Private MD: Diagnosis: Chest pain, unspecified;Dizziness and giddiness Presentation: 08/06 09:18 Chief complaint: Patient states: chest pain since last night, constant, diff breathing iw on exertion, +cough, no fever, has hx of seizures and feels like she night have a seizure. Coronavirus screen: Client presents with at least one sign or symptom that may indicate coronavirus-19. Standard/surgical mask placed on the client. Provider contacted for isolation considerations. Ebola Screen: Patient negative for fever greater than or equal to 101.5 degrees Fahrenheit, and additional compatible Ebola Virus Disease symptoms Patient denies exposure to infectious person. Patient denies travel to an Ebola-affected area in the 21 days before illness onset. No symptoms or risks identified at this time. Initial Sepsis Screen: Does the patient meet any 2 criteria? No. Patient's initial sepsis screen is negative. Does the patient have a suspected source of infection? No. Patient's initial sepsis screen is negative. Risk Assessment: Do you want to hurt yourself or someone else? Patient reports no desire to harm self or others. Onset of symptoms was August 05, 2020. 09:18 Method Of Arrival: Wheelchair iw 09:18 Acuity: ANDER 3 iw SWITCH INSPECTOR: 13:44 LMP N/A - Irregular menses jd3 Historical: - Allergies: 09:21 Green Tea; iw 09:21 Prozac; iw - Home Meds: 09:21 Keppra 500 mg oral tab daily [Active]; Keppra 500 mg Oral tab 1 tab 2 times per day iw [Active]; - PMHx: 09:21 Anxiety; Bipolar disorder; Chronic pain; Depression; Diverticulitis; Herniated Back iw Disc; Hypertension; intestinal mass; Myocardial infarction; pt reports hx of seizures; Spastic Muscles; - Immunization history:: Adult Immunizations up to date. - Social history:: Smoking status: Patient reports the use of cigarette tobacco products, smokes one pack cigarettes per day. Screenin:25 Abuse screen: Denies threats or abuse. Nutritional screening: No deficits noted. jd3 Tuberculosis screening: No symptoms or risk factors identified. Fall Risk Ambulatory Aid- None/Bed Rest/Nurse Assist (0 pts). Gait- Normal/Bed Rest/Wheelchair (0 pts) Mental Status- Oriented to own ability (0 pts). Total Costello Fall Scale indicates No Risk (0-24 pts). Assessment: 10:23 General: Appears in no apparent distress. uncomfortable, Behavior is calm, cooperative, jd3 appropriate for age. Pain: Complains of pain in chest and abdomen Pain does not radiate. Pain began suddenly. Neuro: Level of Consciousness is awake, alert, obeys commands, Oriented to person, place, time, situation. Cardiovascular: Capillary refill < 3 seconds Patient's skin is warm and dry. Rhythm is irregular. Respiratory: Airway is patent Respiratory effort is even, unlabored, Respiratory pattern is regular, symmetrical, Denies cough, shortness of breath. GI: Abdomen is round non-distended, Abd is soft and non tender X 4 quads. Reports lower abdominal pain, upper abdominal pain, nausea, vomiting, dark colored stools. : No signs and/or symptoms were reported regarding the genitourinary system. EENT: No signs and/or symptoms were reported regarding the EENT system. Derm: Skin is intact, Skin is dry, Skin is normal, Skin temperature is warm. Musculoskeletal: Circulation, motion, and sensation intact. Range of motion: intact in all extremities. 11:31 Reassessment: Patient appears in no apparent distress at this time. Patient and/or jd3 family updated on plan of care and expected duration. Pain level reassessed. Patient is alert, oriented x 3, equal unlabored respirations, skin warm/dry/pink. Patient states feeling better. 12:30 Reassessment: Patient appears in no apparent distress at this time. Patient and/or jd3 family updated on plan of care and expected duration. Pain level reassessed. Patient is alert, oriented x 3, equal unlabored respirations, skin warm/dry/pink. pt reporting returning pain, requested Tylenol #3, provider notified, medicated as ordered. 13:41 Reassessment: Patient appears in no apparent distress at this time. Patient and/or jd3 family updated on plan of care and expected duration. Pain level reassessed. Patient is alert, oriented x 3, equal unlabored respirations, skin warm/dry/pink. Patient states feeling better. Vital Signs: 09:18 BP 114 / 78; Pulse 78; Resp 18; Pulse Ox 100% on R/A; Weight 63.5 kg; Height 5 ft. 3 iw in. (160.02 cm); Pain 10/10; 11:32 BP 128 / 86; Pulse 65; Resp 17 S; Pulse Ox 100% on R/A; jd3 12:31 BP 126 / 82; Pulse 66; Resp 16 S; Pulse Ox 100% on R/A; jd3 13:41 BP 129 / 79; Pulse 63; Resp 17 S; Pulse Ox 100% on R/A; jd3 09:18 Body Mass Index 24.80 (63.50 kg, 160.02 cm) iw ED Course: 09:11 Patient arrived in ED. as 09:20 Triage completed. iw 09:25 Octaviano Keith PA is PHCP. jmm 09:25 Derrick Santillan MD is Attending Physician. jmm 09:44 Gilles Myrick RN is Primary Nurse. jd3 09:44 Arm band placed on. jd3 10:25 Patient has correct armband on for positive identification. Placed in gown. Bed in low jd3 position. Call light in reach. Side rails up X2. supervisor channel process on. Pulse ox on. NIBP on. 10:25 Inserted saline lock: 20 gauge in right forearm, using aseptic technique. Blood jd3 collected. Patient maintains SpO2 saturation greater than 95% on room air. 11:04 XRAY Chest (1 view) In Process Unspecified. EDMS 11:23 CT Head Brain wo Cont In Process Unspecified. EDMS 11:23 CT Head Angio In Process Unspecified. EDMS 11:23 CT Neck Angio In Process Unspecified. EDMS 13:44 No provider procedures requiring assistance completed. IV discontinued, intact, jd3 bleeding controlled, No redness/swelling at site. Pressure dressing applied. Administered Medications: 10:20 Drug: Valium 5 mg Route: IVP; Site: right forearm; jd3 11:20 Follow up: Response: No adverse reaction; RASS: Alert and Calm (0) jd3 10:20 Drug: Promethazine 12.5 mg Route: IVP; Site: right forearm; jd3 11:20 Follow up: Response: No adverse reaction jd3 12:33 Drug: Tylenol #3 (300 mg-30 mg) 1 tablet Route: PO; jd3 13:30 Follow up: Response: No adverse reaction; RASS: Alert and Calm (0) jd3 Outcome: 13:25 Discharge ordered by . willis 13:44 Discharged to home ambulatory, with friend. jd3 13:44 Condition: stable 13:44 Discharge instructions given to patient, Instructed on discharge instructions, follow up and referral plans. Demonstrated understanding of instructions, follow-up care. 13:45 Patient left the ED. jd3 Signatures: Dispatcher [employer] EDMS Octaviano Keith PA PA jmm Martinez, Amelia as Williams, Irene, RN RN iw Davies, Jonathon, RN RN jd3 Corrections: (The following items were deleted from the chart) 11:32 11:31 Reassessment: Patient appears in no apparent distress at this time. Patient jd3 and/or family updated on plan of care and expected duration. Pain level reassessed. Patient is alert, oriented x 3, equal unlabored respirations, skin warm/dry/pink. jd3
--- NOTE | 2020-08-06 13:26 | EDPHYS ---
Physician Documentation [facility] Name: Heather Coon Age: 50 yrs Sex: Female : 1970 Arrival Date: 08/06/2020 Time: 09:11 Bed 13 Private MD: JACKELINE Physician Derrick Santillan HPI: 08/06 09:50 This 50 yrs old Female presents to ER via Wheelchair with complaints of Chest jmm Pain. 09:50 The patient or guardian reports chest pain that is located primarily in the substernal jmm area. Onset: gradually, 2 day(s) ago. The pain does not radiate. Associated signs and symptoms: Pertinent positives: vomiting. This is a 50 year old female with a history of bipolar, anxiety, depression that presents to the ED with complaints of chest pain beginning 2 days ago, which has been constant. Patient also complains of ongoing dizziness for the past 7 months after switching seizure medication. . DRY TRANSFER MAN: 13:44 LMP N/A - Irregular menses jd3 Historical: - Allergies: 09:21 Green Tea; iw 09:21 Prozac; iw - Home Meds: 09:21 Keppra 500 mg oral tab daily [Active]; Keppra 500 mg Oral tab 1 tab 2 times per day iw [Active]; - PMHx: 09:21 Anxiety; Bipolar disorder; Chronic pain; Depression; Diverticulitis; Herniated Back iw Disc; Hypertension; intestinal mass; Myocardial infarction; pt reports hx of seizures; Spastic Muscles; - Immunization history:: Adult Immunizations up to date. - Social history:: Smoking status: Patient reports the use of cigarette tobacco products, smokes one pack cigarettes per day. ROS: 09:50 Constitutional: Negative for fever, chills, and weight loss. jmm 09:50 Respiratory: Negative for shortness of breath, cough, wheezing, and pleuritic chest pain. 09:50 Cardiovascular: Positive for chest pain. 09:50 Neuro: Positive for dizziness. 09:50 All other systems are negative. Exam: 09:50 Head/Face: atraumatic. Eyes: EOMI, no conjunctival erythema appreciated ENT: Moist jmm Mucus Membranes Neck: Trachea midline, Supple Chest/axilla: Normal chest wall appearance and motion. Cardiovascular: Regular rate and rhythm. No edema appreciated Respiratory: Normal respirations, no respiratory distress appreciated Abdomen/GI: Non distended, soft Back: Normal ROM 09:50 Constitutional: The patient appears alert, awake, anxious. 09:50 Cardiovascular: Rate: normal, Rhythm: regular. 09:50 Respiratory: the patient does not display signs of respiratory distress, Respirations: normal, Breath sounds: are clear throughout. 09:50 Skin: Appearance: Color: normal in color. 09:50 Neuro: Orientation: is normal, Mentation: is normal, Memory: is normal. 09:50 Psych: Behavior/mood is anxious. Vital Signs: 09:18 BP 114 / 78; Pulse 78; Resp 18; Pulse Ox 100% on R/A; Weight 63.5 kg; Height 5 ft. 3 iw in. (160.02 cm); Pain 10/10; 11:32 BP 128 / 86; Pulse 65; Resp 17 S; Pulse Ox 100% on R/A; jd3 12:31 BP 126 / 82; Pulse 66; Resp 16 S; Pulse Ox 100% on R/A; jd3 13:41 BP 129 / 79; Pulse 63; Resp 17 S; Pulse Ox 100% on R/A; jd3 09:18 Body Mass Index 24.80 (63.50 kg, 160.02 cm) iw MDM: 09:32 Patient medically screened. fabrice 13:24 Data reviewed: vital signs, nurses notes. Counseling: I had a detailed discussion with willis the patient and/or guardian regarding: the historical points, exam findings, and any diagnostic results supporting the discharge/admit diagnosis, lab results, radiology results, the need for outpatient follow up, to return to the emergency department if symptoms worsen or persist or if there are any questions or concerns that arise at home. ED course: Chest pain relieved in the ED. CT and CTA negative. I do not suspect an acute circulatory process. Patient states she feels much better. Will follow up with Dr. Lambert for reevaluation. Patient is otherwise given strict return precautions. Patient understood and agrees with the plan of care. . 08/06 09:49 Order name: Basic Metabolic Panel; Complete Time: 10:34 [facility] 08/06 09:49 Order name: CBC with Diff; Complete Time: 10:17 [facility] 08/06 09:49 Order name: LFT's; Complete Time: 10:34 [facility] 08/06 09:49 Order name: Magnesium; Complete Time: 10:34 [facility] 08/06 09:49 Order name: NT PRO-BNP; Complete Time: 10:34 [facility] 08/06 09:49 Order name: PT-INR; Complete Time: 10:24 [facility] 08/06 09:49 Order name: Troponin (emerg Dept Use Only); Complete Time: 10:34 [facility] 08/06 09:49 Order name: XRAY Chest (1 view); Complete Time: 11:26 [facility] 08/06 09:49 Order name: Urine Drug Screen; Complete Time: 12:56 [facility] 08/06 09:49 Order name: D-Dimer; Complete Time: 10:24 [facility] 08/06 10:56 Order name: CT Head Brain wo Cont; Complete Time: 11:43 [facility] 08/06 10:56 Order name: CT Head Angio; Complete Time: 11:56 [facility] 08/06 10:56 Order name: CT Neck Angio; Complete Time: 11:56 [facility] 08/06 12:14 Order name: Urine Dipstick--Ancillary (enter results); Complete Time: 13:18 08/06 09:49 Order name: EKG; Complete Time: 09:50 [facility] 08/06 09:49 Order name: Cardiac monitoring; Complete Time: 10:21 [facility] 08/06 09:49 Order name: EKG - Nurse/Tech; Complete Time: 10:20 [facility] 08/06 09:49 Order name: IV Saline Lock; Complete Time: 10:02 [facility] 08/06 09:49 Order name: Labs collected and sent; Complete Time: 10:02 [facility] 08/06 09:49 Order name: O2 Per Protocol; Complete Time: 09:50 [facility] 08/06 09:49 Order name: O2 Sat Monitoring; Complete Time: 09:50 jm Administered Medications: 10:20 Drug: Valium 5 mg Route: IVP; Site: right forearm; jd3 11:20 Follow up: Response: No adverse reaction; RASS: Alert and Calm (0) jd3 10:20 Drug: Promethazine 12.5 mg Route: IVP; Site: right forearm; jd3 11:20 Follow up: Response: No adverse reaction jd3 12:33 Drug: Tylenol #3 (300 mg-30 mg) 1 tablet Route: PO; jd3 13:30 Follow up: Response: No adverse reaction; RASS: Alert and Calm (0) jd3 Disposition: 18:58 Co-signature as Attending Physician, Derrick Santillan MD I agree with the assessment and [facility] plan of care. Disposition: 08/06/20 13:25 Discharged to Home. Impression: Chest pain, unspecified, Dizziness and giddiness. - Condition is Stable. - Discharge Instructions: Nonspecific Chest Pain, Dizziness. - Medication Reconciliation Form, Thank You Letter, Antibiotic Education, Prescription Opioid Use form. - Follow up: Private Physician; When: 2 - 3 days; Reason: Recheck today's complaints, Continuance of care, Re-evaluation by your physician. Signatures: Dispatcher [employer] EDDerrick Norton MD MD cha Mickail, Joel, PA PA jmm Williams, Irene, Gilles Josue RN, RN RN jd3 Corrections: (The following items were deleted from the chart) 13:45 13:25 08/06/2020 13:25 Discharged to Home. Impression: Chest pain, unspecified; jd3 Dizziness and giddiness. Condition is Stable. Forms are Medication Reconciliation Form, Thank You Letter, Antibiotic Education, Prescription Opioid Use. Follow up: Private Physician; When: 2 - 3 days; Reason: Recheck today's complaints, Continuance of care, Re-evaluation by your physician. willis
[2020-08-06 13:57] VITALS: O2SAT 100
[2020-08-06 14:02] VITALS: BP 129/79
== END 2020-08-06 13:45 | disposition home or self-care (01) ==
LOC: ER 09:10
DX: R42 Dizziness and giddiness (principal); I10 Essential (primary) hypertension; G40.909 Epilepsy, unspecified, not intractable, without status epilepticus; F31.9 Bipolar disorder, unspecified; I25.2 Old myocardial infarction; Z88.5 Allergy status to narcotic agent; Z91.018 Allergy to other foods
CPT/HCPCS: 93005; 85025; 80048; 36415; 83735; 85610; 85379; 80076; 80307 ×8; 81003; 84484; 83880; 70450; 70496; 70498; 71045; Q9967; J2550; J3360; 96374; 96375; 99285

== ENCOUNTER 2020-08-30 01:31 | Emergency (ER) | payer OTHER ==
--- OUTSIDE RECORDS SUMMARY | 2020-08-30 01:39 | XMS REPORT | Continuity of Care Document ---
:1970 Author Organization [facility] t Address [address] [place] [address] Care Team Providers Name Role Phone Dima [...] Department ID 2019-03-09 2019-03-09 LEIGH Zimmerman [id number] 00:00:00 00:00:00 Yehuda Harrell [id number] [place] [id number] [facility] [phone] [facility] [address] Results This patient has no known results.
[2020-08-30] MEDS ORDERED: LORAZEPAM 1 MG TABLET ONE (01:54)
--- NOTE | 2020-08-30 02:03 | EDPHYS ---
Physician Documentation [facility] Name: Heather Coon Age: 50 yrs Sex: Female : 1970 Arrival Date: 08/30/2020 Time: 01:36 Bed 30 Private MD: ED Physician Darrick Coughlin HPI: 08/30 01:44 This 50 yrs old Female presents to ER via Ambulatory with complaints of ma2 anxiety. 01:44 she is a of a patient in ed who , she has hx of seizure and has severe ma2 anxiety.. Onset: The symptoms/episode began/occurred suddenly, 1 hour(s) ago. Severity of symptoms: At their worst the symptoms were moderate in the emergency department the symptoms are unchanged. The patient has not experienced similar symptoms in the past. Historical: - Allergies: 01:39 Green Tea; em 01:39 Prozac; em - Home Meds: 01:39 Keppra Oral [Active]; em - PMHx: 01:39 Anxiety; Bipolar disorder; Chronic pain; Depression; Diverticulitis; Herniated Back em Disc; Hypertension; intestinal mass; Myocardial infarction; pt reports hx of seizures; Spastic Muscles; - Immunization history:: Adult Immunizations unknown. - Social history:: Smoking status: unknown Patient uses Patient/guardian denies using alcohol, street drugs, The patient lives with family. - Family history:: not pertinent. ROS: 01:44 Constitutional: Negative for fever, chills, and weight loss. ma2 01:44 All other systems are negative. Exam: 01:44 Constitutional: This is a well developed, well nourished patient who is awake, alert, ma2 and in no acute distress. Head/Face: Normocephalic, atraumatic. Eyes: Pupils equal round and reactive to light, extra-ocular motions intact. Lids and lashes normal. Conjunctiva and sclera are non-icteric and not injected. Cornea within normal limits. Periorbital areas with no swelling, redness, or edema. ENT: Nares patent. No nasal discharge, no septal abnormalities noted. Tympanic membranes are normal and external auditory canals are clear. Oropharynx with no redness, swelling, or masses, exudates, or evidence of obstruction, uvula midline. Mucous membranes moist. Neck: Trachea midline, no thyromegaly or masses palpated, and no cervical lymphadenopathy. Supple, full range of motion without nuchal rigidity, or vertebral point tenderness. No Meningismus. Chest/axilla: Normal chest wall appearance and motion. Nontender with no deformity. No lesions are appreciated. Cardiovascular: Regular rate and rhythm with a normal S1 and S2. No gallops, murmurs, or rubs. Normal PMI, no JVD. No pulse deficits. Respiratory: Lungs have equal breath sounds bilaterally, clear to auscultation and percussion. No rales, rhonchi or wheezes noted. No increased work of breathing, no retractions or nasal flaring. Abdomen/GI: Soft, non-tender, with normal bowel sounds. No distension or tympany. No guarding or rebound. No evidence of tenderness throughout. Back: No spinal tenderness. No costovertebral tenderness. Full range of motion. Skin: Warm, dry with normal turgor. Normal color with no rashes, no lesions, and no evidence of cellulitis. MS/ Extremity: Pulses equal, no cyanosis. Neurovascular intact. Full, normal range of motion. Neuro: Awake and alert, GCS 15, oriented to person, place, time, and situation. Cranial nerves II-XII grossly intact. Motor strength 5/5 in all extremities. Sensory grossly intact. Cerebellar exam normal. Normal gait. 01:44 Psych: Behavior/mood is anxious, Affect is Patient has no thoughts/intents to harm self or others. Judgement / Insight is normal. Vital Signs: 01:36 Pulse 157; Resp 20; Temp 98.6; Pulse Ox 99% on R/A; em 01:40 BP 95 / 49; em MDM: 01:44 Patient medically screened. [facility] 01:44 Differential Diagnosis anxiety. [facility] 02:01 Data reviewed: vital signs, nurses notes. Counseling: I had a detailed discussion with [facility] the patient and/or guardian regarding: the historical points, exam findings, and any diagnostic results supporting the discharge/admit diagnosis, the presence of at least one elevated blood pressure reading (>120/80) during this emergency department visit, the need for outpatient follow up. Response to treatment: the patient's symptoms have markedly improved after treatment. Administered Medications: 01:47 Drug: Ativan 2 mg Route: PO; em 02:03 Follow up: Response: Marked relief of symptoms em Disposition: 08/30/20 02:02 Discharged to Home. Impression: Anxiety disorder, unspecified. - Condition is Stable. - Discharge Instructions: Generalized Anxiety Disorder. - Medication Reconciliation Form, Thank You Letter, Antibiotic Education, Prescription Opioid Use form. - Follow up: Private Physician; When: Tomorrow; Reason: If symptoms return, Continuance of care. Signatures: Ej Matias RN RN em Alzahri, Mohammad, MD MD ma2 Corrections: (The following items were deleted from the chart) 02:15 02:02 08/30/2020 02:02 Discharged to Home. Impression: Anxiety disorder, unspecified. em Condition is Stable. Forms are Medication Reconciliation Form, Thank You Letter, Antibiotic Education, Prescription Opioid Use. Follow up: Private Physician; When: Tomorrow; Reason: If symptoms return, Continuance of care. ma2
--- NOTE | 2020-08-30 02:03 | ER ---
Nurse's Notes [facility] Name: Heather Coon Age: 50 yrs Sex: Female : 1970 Arrival Date: 08/30/2020 Time: 01:36 Bed 30 Private MD: Diagnosis: Anxiety disorder, unspecified Presentation: 08/30 01:36 Chief complaint: Patient states: found out early this morning, em thinks she is going to have an anxiety attack, crying uncontrollably in pt room. Coronavirus screen: Client denies travel out of the [place] in the last 14 days. Ebola Screen: Patient negative for fever greater than or equal to 101.5 degrees Fahrenheit, and additional compatible Ebola Virus Disease symptoms Patient denies exposure to infectious person. Patient denies travel to an Ebola-affected area in the 21 days before illness onset. No symptoms or risks identified at this time. Initial Sepsis Screen: Does the patient meet any 2 criteria? HR > 90 bpm. No. Patient's initial sepsis screen is negative. Does the patient have a suspected source of infection? No. Patient's initial sepsis screen is negative. Risk Assessment: Do you want to hurt yourself or someone else? Patient reports no desire to harm self or others. Onset of symptoms was August 30, 2020. 01:36 Method Of Arrival: Ambulatory em 01:36 Acuity: ANDER 3 em Historical: - Allergies: 01:39 Green Tea; em 01:39 Prozac; em - Home Meds: 01:39 Keppra Oral [Active]; em - PMHx: 01:39 Anxiety; Bipolar disorder; Chronic pain; Depression; Diverticulitis; Herniated Back em Disc; Hypertension; intestinal mass; Myocardial infarction; pt reports hx of seizures; Spastic Muscles; - Immunization history:: Adult Immunizations unknown. - Social history:: Smoking status: unknown Patient uses Patient/guardian denies using alcohol, street drugs, The patient lives with family. - Family history:: not pertinent. Screenin:36 Abuse screen: Denies threats or abuse. Nutritional screening: No deficits noted. em Tuberculosis screening: No symptoms or risk factors identified. Fall Risk None identified. Assessment: 01:36 General: Appears uncomfortable, slender, Behavior is crying. Pain:. Neuro: Level of em Consciousness is awake, alert, obeys commands, Oriented to person, place, time, situation. Cardiovascular: Capillary refill < 3 seconds Patient's skin is warm and dry. Respiratory: Airway is patent Respiratory effort is even, unlabored, Respiratory pattern is regular, symmetrical. Derm: Skin is intact, is thin, Skin is pink, warm \T\ dry. Musculoskeletal: Capillary refill < 3 seconds, Range of motion: intact in all extremities. 01:38 Reassessment: received VO for 2 mg ativan PO x 1. em Vital Signs: 01:36 Pulse 157; Resp 20; Temp 98.6; Pulse Ox 99% on R/A; em 01:40 BP 95 / 49; em ED Course: 01:36 Patient arrived in ED. em 01:36 Patient has correct armband on for positive identification. Bed in low position. Call em light in reach. Adult w/ patient. 01:38 Triage completed. em 01:39 Ej Matias RN is Primary Nurse. em 01:39 Arm band placed on. em 01:44 Darrick Coughlin MD is Attending Physician. ma2 02:02 No provider procedures requiring assistance completed. Patient did not have IV access em during this emergency room visit. Administered Medications: 01:47 Drug: Ativan 2 mg Route: PO; em 02:03 Follow up: Response: Marked relief of symptoms em Outcome: 02:02 Discharge ordered by . ma2 02:04 Discharged to home with friend. em 02:04 Condition: stable 02:04 Discharge instructions given to patient, friend, Instructed on discharge instructions, follow up and referral plans. Demonstrated understanding of instructions, follow-up care. 02:15 Patient left the ED. em Signatures: Ej Matias, BETH RN em Darrick Coughlin MD MD ma2
[2020-08-30 02:19] VITALS: TEMP 98.6; O2SAT 99
[2020-08-30 02:20] VITALS: BP 95/49
== END 2020-08-30 02:15 | disposition home or self-care (01) ==
LOC: ER 01:31
DX: F41.9 Anxiety disorder, unspecified (principal); Z88.8 Allergy status to other drugs, medicaments and biological substances; Z91.018 Allergy to other foods
CPT/HCPCS: 99283

== ENCOUNTER 2020-09-13 12:27 | Emergency (ER) | payer OTHER ==
--- OUTSIDE RECORDS SUMMARY | 2020-09-13 12:29 | XMS REPORT | Continuity of Care Document ---
:1970 Author Organization [facility] t Address [address] [place] [address] Care Team Providers Name Role Phone Dima [...] Department ID 2019-03-09 2019-03-09 LEIGH Zimmerman [id number] 00:00:00 00:00:00 Yehuda Harrell [id number] [place] [id number] [facility] [phone] [facility] 092 Building Results This patient has no known results.
[2020-09-13 13:12] LABS: Absolute Lymphocytes (CBC) 1.6 K/uL (0.7-4.9); Basophils % 0.8 % (0-1.3); Lymphocytes % 27.2 % (15.3-44.8); MPV 6.5 fL (7.6-11.3); RBC Red Blood Cell Count 4.77 M/uL (3.86-4.86)
[2020-09-13 13:23] LABS: Protime INR 1.05
[2020-09-13 13:30] LABS: ALT/SGPT 15 U/L (12-78); AST/SGOT 12 U/L (15-37); Albumin 3.7 g/dL (3.4-5.0); Alkaline Phosphatase 71 U/L (45-117); BUN Blood Urea Nitrogen 9 mg/dL (7-18); Bicarbonate 25 mmol/L (21-32); Bilirubin Direct 0.1 mg/dL (0-0.2); Bilirubin Total 0.7 mg/dL (0.2-1.0); Glucose Level 104 mg/dL (74-106); Potassium 4.2 mmol/L (3.5-5.1); Protein, Total 7.7 g/dL (6.4-8.2); Sodium Level 141 mmol/L (136-145)
[2020-09-13] MEDS ORDERED: LORAZEPAM 1 MG TABLET ONE (13:45)
[2020-09-13] MEDS ORDERED: ONDANSETRON 4 MG/2 ML VIAL ONE (13:45)
[2020-09-13 13:50] LABS: Barbiturates NEGATIVE (NEGATIVE); Benzodiazepines NEGATIVE (NEGATIVE); Cocaine POSITIVE (NEGATIVE); METHAMPHETAM NEGATIVE (NEGATIVE); Methadone NEGATIVE (NEGATIVE); Opiates NEGATIVE (NEGATIVE); Phencyclidine NEGATIVE (NEGATIVE); THC Cannibis POSITIVE (NEGATIVE)
--- NOTE | 2020-09-13 14:36 | EDPHYS ---
Physician Documentation [facility] Name: Heather Coon Age: 50 yrs Sex: Female : 1970 Arrival Date: 09/13/2020 Time: 12:28 Bed 8 Private MD: ED Physician Matt Urias HPI: 09/14 11:09 This 50 yrs old Female presents to ER via EMS with complaints of Anxiety. kdr 11:09 Since the recent of her , the patient has had recurrent bouts of kdr unmanageable anxiety and emotional breakdown. Onset: The symptoms/episode began/occurred acutely, suddenly, just prior to arrival. Severity of symptoms: At their worst the symptoms were mild in the emergency department the symptoms are unchanged. The patient has experienced similar episodes in the past. The patient has not recently seen a physician. Historical: - Allergies: 09/13 12:32 Green Tea; sv 12:32 Prozac; sv - PMHx: 12:32 Anxiety; Bipolar disorder; Chronic pain; Depression; Diverticulitis; Herniated Back sv Disc; Hypertension; intestinal mass; Myocardial infarction; pt reports hx of seizures; Spastic Muscles; - PSHx: 12:35 Cholecystectomy; Neck; Hand; Mass removed from colon; sv - Immunization history:: Adult Immunizations up to date. - Social history:: Smoking status: . ROS: 09/14 11:09 Constitutional: Negative for fever, chills, and weight loss, Eyes: Negative for injury, kdr pain, redness, and discharge, ENT: Negative for injury, pain, and discharge, Neck: Negative for injury, pain, and swelling, Cardiovascular: Negative for chest pain, palpitations, and edema, Respiratory: Negative for shortness of breath, cough, wheezing, and pleuritic chest pain, Abdomen/GI: Negative for abdominal pain, nausea, vomiting, diarrhea, and constipation, Back: Negative for injury and pain, : Negative for injury, bleeding, discharge, and swelling, MS/Extremity: Negative for injury and deformity, Skin: Negative for injury, rash, and discoloration, Neuro: Negative for headache, weakness, numbness, tingling, and seizure activity. Allergy/Immunology: Negative for hives, rash, and allergies, Endocrine: Negative for neck swelling, polydipsia, polyuria, polyphagia, and marked weight changes, Hematologic/Lymphatic: Negative for swollen nodes, abnormal bleeding, and unusual bruising. Psych: Positive for anxiety. Exam: 11:09 Constitutional: This is a well developed, well nourished patient who is awake, alert, kdr and in moderate distress. Head/Face: Normocephalic, atraumatic. Eyes: Pupils equal round and reactive to light, extra-ocular motions intact. Lids and lashes normal. Conjunctiva and sclera are non-icteric and not injected. Cornea within normal limits. Periorbital areas with no swelling, redness, or edema. Neck: Trachea midline, no thyromegaly or masses palpated, and no cervical lymphadenopathy. Supple, full range of motion without nuchal rigidity, or vertebral point tenderness. No Meningismus. Chest/axilla: Normal chest wall appearance and motion. Nontender with no deformity. No lesions are appreciated. Cardiovascular: Regular rate and rhythm with a normal S1 and S2. No gallops, murmurs, or rubs. Normal PMI, no JVD. No pulse deficits. Respiratory: Lungs have equal breath sounds bilaterally, clear to auscultation and percussion. No rales, rhonchi or wheezes noted. No increased work of breathing, no retractions or nasal flaring. Abdomen/GI: Soft, non-tender, with normal bowel sounds. No distension or tympany. No guarding or rebound. No evidence of tenderness throughout. Back: No spinal tenderness. No costovertebral tenderness. Full range of motion. Skin: Warm, dry with normal turgor. Normal color with no rashes, no lesions, and no evidence of cellulitis. MS/ Extremity: Pulses equal, no cyanosis. Neurovascular intact. Full, normal range of motion. Neuro: Awake and alert, GCS 15, oriented to person, place, time, and situation. Cranial nerves II-XII grossly intact. Motor strength 5/5 in all extremities. Sensory grossly intact. Cerebellar exam normal. Normal gait. 11:09 Psych: Behavior/mood is cooperative, anxious, Affect is animated, Oriented to person, place, time, Patient has no thoughts/intents to harm self or others. Judgement / Insight is normal. Memory is normal. Delusions/hallucinations are not present. Vital Signs: 09/13 12:32 BP 155 / 87; Pulse 61; Resp 18; Temp 98.1; Pulse Ox 99% ; Pain 0/10; sv 13:22 BP 161 / 97; Pulse 71; Resp 18; Pulse Ox 100% ; sv 14:27 BP 148 / 99; Pulse 78; Resp 18; Pulse Ox 99% ; sv MDM: 14:35 Patient medically screened. [facility] 09/14 11:14 Data reviewed: vital signs, nurses notes, lab test result(s), radiologic studies. kdr Counseling: I had a detailed discussion with the patient and/or guardian regarding: the historical points, exam findings, and any diagnostic results supporting the discharge/admit diagnosis, lab results, the need for outpatient follow up. 09/13 12:42 Order name: Basic Metabolic Panel [facility] 09/13 12:42 Order name: CBC with Diff [facility] 09/13 12:42 Order name: ETOH Level [facility] 09/13 12:42 Order name: Hepatic Function [facility] 09/13 12:42 Order name: PT-INR [facility] 09/13 12:42 Order name: Ptt, Activated [facility] 09/13 12:42 Order name: Salicylate [facility] 09/13 12:42 Order name: Urine Drug Screen [facility] 09/13 12:42 Order name: EKG; Complete Time: 12:43 [facility] 09/13 12:43 Order name: Acetaminophen Level EDMS 09/13 13:43 Order name: Urine Dipstick--Ancillary (enter results) em1 09/13 12:42 Order name: EKG - Nurse/Tech; Complete Time: 13:28 [facility] 09/13 12:42 Order name: IV Saline Lock; Complete Time: 13:22 [facility] 09/13 12:42 Order name: Labs collected and sent; Complete Time: 13:22 [facility] 09/13 12:42 Order name: Urine Dipstick-Ancillary (obtain specimen); Complete Time: 13:27 [facility] Administered Medications: 09/13 13:32 Drug: Zofran (Ondansetron) 4 mg Route: IVP; Site: right forearm; sv 13:48 Follow up: Response: No adverse reaction; Marked relief of symptoms; Nausea is decreasedsv 13:48 Drug: Ativan 2 mg Route: PO; sv 14:30 Follow up: Response: No adverse reaction sv Disposition: 09/13/20 14:35 Discharged to Home. Impression: Anxiety disorder, unspecified. - Condition is Stable. - Discharge Instructions: Panic Attacks, [id number], Generalized Anxiety Disorder. - Prescriptions for Ativan 1 mg Oral Tablet - take 1 tablet by ORAL route every 8 hours As needed; 6 tablet. - Medication Reconciliation Form, Thank You Letter form. - Follow up: Private Physician; When: 2 - 3 days; Reason: If symptoms return, Further diagnostic work-up, Recheck today's complaints, Continuance of care, Re-evaluation by your physician. - Problem is an ongoing problem. - Symptoms have improved. Signatures: Dispatcher [employer] [facility] Heather Ellsworth RN RN sv Matt Urias MD MD kdr Corrections: (The following items were deleted from the chart) 13:27 12:43 ACETAMINOPHEN+C.LAB.BRZ ordered. [facility] 15:11 14:35 09/13/2020 14:35 Discharged to Home. Impression: Anxiety disorder, unspecified. sv Condition is Stable. Forms are Medication Reconciliation Form, Thank You Letter, Antibiotic Education, Prescription Opioid Use. Follow up: Private Physician; When: 2 - 3 days; Reason: If symptoms return, Further diagnostic work-up, Recheck today's complaints, Continuance of care, Re-evaluation by your physician. Problem is an ongoing problem. Symptoms have improved. kdr
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
[2020-09-13 15:23] LABS: Urine Blood 2+ (NEG); Urine Glucose NEGATIVE (NEG); Urine Protein 2+ (NEG); Urine Specific Gravity >1.030 (1.005-1.030)
[2020-09-13 16:06] VITALS: TEMP 98.1
[2020-09-13 16:09] VITALS: BP 148/99; O2SAT 99
--- NOTE | 2020-09-14 14:12 | EKG ---
Test Date: 2020-09-13 Test Time: 13:08:43 Hammerer Helper: TODD MEASUREMENT RESULTS: Intervals: Rate: 66 NM: 154 QRSD: 76 QT: 406 QTc: 425 [place]: P: NM: 154 QRS: 106 T: 50 INTERPRETIVE STATEMENTS: Normal sinus rhythm with sinus arrhythmia Rightward axis Borderline ECG Compared to ECG 08/06/2020 10:13:55 Right-axis deviation now present Left posterior fascicular block no longer present Myocardial infarct finding no longer present Electronically Signed On 09-14-20 14:09:14 REEL FED PRINTER by Migel Warren
== END 2020-09-13 15:11 | disposition home or self-care (01) ==
LOC: ER 12:27
DX: F41.9 Anxiety disorder, unspecified (principal); I10 Essential (primary) hypertension; Z88.5 Allergy status to narcotic agent; Z91.018 Allergy to other foods
CPT/HCPCS: 93005; 85025; 80048; 36415; 80320; 80329 ×2; 85610; 80076; 80307 ×8; 85730; 81003; 96374; 99284; J2405

== ENCOUNTER 2020-09-14 11:49 | Emergency (ER) | payer OTHER ==
--- OUTSIDE RECORDS SUMMARY | 2020-09-14 11:51 | XMS REPORT | Continuity of Care Document ---
:1970 Author Organization [facility] t Address [address] [place] [address] Care Team Providers Name Role Phone Dima [...] Department ID 2019-03-09 2019-03-09 LEIGH Zimmerman [id number] 00:00:00 00:00:00 Yehuda Harrell [id number] [place] [id number] [facility] [phone] [facility] 092 Building Results This patient has no known results.
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
[2020-09-14] MEDS ORDERED: CIPROFLOXACIN HCL 500 MG TAB ONE (12:50)
[2020-09-14] MEDS ORDERED: metroNIDAZOLE 500 MG TABLET ONE (12:50)
[2020-09-14] MEDS ORDERED: LORAZEPAM 1 MG TABLET ONE (12:51)
[2020-09-14 14:26] VITALS: O2SAT 100
[2020-09-14 14:27] VITALS: BP 114/60
== END 2020-09-14 13:48 | disposition home or self-care (01) ==
LOC: ER 11:49
DX: K57.90 Diverticulosis of intestine, part unspecified, without perforation or abscess without bleeding (principal); I10 Essential (primary) hypertension; F17.210 Nicotine dependence, cigarettes, uncomplicated; V59.9XXA Occupant (driver) (passenger) of pick-up truck or van injured in unspecified traffic accident, initial encounter; Z88.5 Allergy status to narcotic agent; Z91.018 Allergy to other foods
CPT/HCPCS: 99283

== ENCOUNTER 2020-10-10 08:46 | Emergency (ER) | payer OTHER ==
--- OUTSIDE RECORDS SUMMARY | 2020-10-10 08:49 | XMS REPORT | Continuity of Care Document ---
:1970 Author Organization [facility] t Address [address] [place] [address] Care Team Providers Name Role Phone Dima [...] Department ID 2019-03-09 2019-03-09 LEIGH Zimmerman [id number] 00:00:00 00:00:00 Yehuda Harrell [id number] [place] [id number] [facility] [phone] [facility] 092 Building Results This patient has no known results.
[2020-10-10 09:46] LABS: Absolute Lymphocytes (CBC) 1.3 K/uL (0.7-4.9); Basophils % 0.9 % (0-1.3); Hematocrit 42.7 % (36.0-45.0); MPV 6.2 fL (7.6-11.3); RBC Red Blood Cell Count 5.19 M/uL (3.86-4.86)
[2020-10-10] MEDS ORDERED: NA CHLORIDE 0.9% 1,000 ML ONE (09:57)
[2020-10-10 10:02] LABS: Albumin 4.3 g/dL (3.4-5.0); Bilirubin Direct 0.1 mg/dL (0-0.2); Bilirubin Total 0.6 mg/dL (0.2-1.0); Potassium 3.8 mmol/L (3.5-5.1)
--- NOTE | 2020-10-10 10:14 | ER ---
Nurse's Notes [facility] Name: Heather Coon Age: 50 yrs Sex: Female : 1970 Arrival Date: 10/10/2020 Time: 08:48 Bed 15 Private MD: Diagnosis: Vomiting Presentation: 10/10 08:48 Chief complaint: EMS states: EMS CALLED BY S/O FOR "SYNTHETIC" USE AND AMS AT HOME. bp FREQUENT H/O SAME. Coronavirus screen: At this time, the client does not indicate any symptoms associated with coronavirus-19. Ebola Screen: No symptoms or risks identified at this time. Initial Sepsis Screen: Does the patient meet any 2 criteria? HR > 90 bpm. No. Patient's initial sepsis screen is negative. Does the patient have a suspected source of infection? No. Patient's initial sepsis screen is negative. Risk Assessment: Do you want to hurt yourself or someone else? Patient reports no desire to harm self or others. Onset of symptoms is unknown. 08:48 Method Of Arrival: EMS: [facility] bp 08:48 Acuity: ANDER 3 bp Triage Assessment: 08:51 General: Appears in no apparent distress. comfortable, unkempt, Behavior is anxious. bp Pain: Denies pain. EENT: No deficits noted. Neuro: Level of Consciousness is awake, alert, Oriented to person, place. Cardiovascular: No deficits noted. Respiratory: No deficits noted. GI: No signs and/or symptoms were reported involving the gastrointestinal system. : No signs and/or symptoms were reported regarding the genitourinary system. Derm: No deficits noted. Musculoskeletal: No deficits noted. Historical: - Allergies: 08:51 Green Tea; bp 08:51 Prozac; bp - Home Meds: 08:51 None [Active]; bp - PMHx: 08:51 Anxiety; Bipolar disorder; Chronic pain; Depression; Hypertension; Diverticulitis; bp Herniated Back Disc; intestinal mass; Myocardial infarction; pt reports hx of seizures; Spastic Muscles; - Immunization history:: Adult Immunizations up to date. - Social history:: Smoking status: Patient reports the use of cigarette tobacco products, unknown amount Patient uses street drugs, SYNTHETIC. Screenin:53 Abuse screen: Denies threats or abuse. Denies injuries from another. Nutritional bp screening: No deficits noted. Tuberculosis screening: No symptoms or risk factors identified. Fall Risk None identified. Assessment: 08:53 General: SEE TRIAGE NOTE. bp 09:45 Reassessment: Patient appears in no apparent distress at this time. Patient and/or bw family updated on plan of care and expected duration. Pain level reassessed. Patient is alert, oriented x 3, equal unlabored respirations, skin warm/dry/pink. 10:03 Reassessment: PT ESCORTED TO BATHROOM, NO URINE PROVIDED. bp 10:53 Reassessment: DC pending IV fluids and awaiting ride for pt picker and sorter load and unload. bw Vital Signs: 08:48 BP 168 / 88; Pulse 100; Resp 16; Temp 98; Pulse Ox 97% ; bp 09:44 BP 164 / 89; Pulse 104; Resp 20; Pulse Ox 98% on R/A; bw ED Course: 08:48 Patient arrived in ED. bp 08:49 Matt Urias MD is Attending Physician. kdr 08:50 Triage completed. bp 08:51 Arm band placed on. bp 08:53 Patient has correct armband on for positive identification. Bed in low position. Call bp light in reach. Side rails up X2. 08:54 Torrey Whittington, RN is Primary Nurse. bp 09:44 Inserted saline lock: 20 gauge in left antecubital area, using aseptic technique. Blood bw collected. Administered Medications: 09:42 Drug: NS 0.9% 1000 ml Route: IV; Rate: 1 bolus; Site: left antecubital; bw Outcome: 10:13 Discharge ordered by . kdr 11:43 Patient left the ED. ss Signatures: Matt Urias MD MD [facility] Rocío Canas RN RN Torrey Whittington, BETH RN bp Alyssa Vera RN RN bw
--- NOTE | 2020-10-10 10:14 | EDPHYS ---
Physician Documentation [facility] Name: Heather Coon Age: 50 yrs Sex: Female : 1970 Arrival Date: 10/10/2020 Time: 08:48 Bed 15 Private MD: ED Physician Matt Urias HPI: 10/10 10:24 This 50 yrs old Female presents to ER via EMS with complaints of Drug Abuse. kdr 10:24 The patient reports vomiting but not now - has resolved. States that she just "doesn't kdr know what to do." She has no focal c/o. Onset: The symptoms/episode began/occurred today. Severity of symptoms: At their worst the symptoms were mild in the emergency department the symptoms have resolved. The patient has experienced similar episodes in the past, multiple times. The patient has not recently seen a physician. Historical: - Allergies: 08:51 Green Tea; bp 08:51 Prozac; bp - Home Meds: 08:51 None [Active]; bp - PMHx: 08:51 Anxiety; Bipolar disorder; Chronic pain; Depression; Hypertension; Diverticulitis; bp Herniated Back Disc; intestinal mass; Myocardial infarction; pt reports hx of seizures; Spastic Muscles; - Immunization history:: Adult Immunizations up to date. - Social history:: Smoking status: Patient reports the use of cigarette tobacco products, unknown amount Patient uses street drugs, SYNTHETIC. ROS: 10:24 Constitutional: Negative for fever, chills, and weight loss, Eyes: Negative for injury, kdr pain, redness, and discharge, Neck: Negative for injury, pain, and swelling, Cardiovascular: Negative for chest pain, palpitations, and edema, Respiratory: Negative for shortness of breath, cough, wheezing, and pleuritic chest pain, Back: Negative for injury and pain, : Negative for injury, bleeding, discharge, and swelling, MS/Extremity: Negative for injury and deformity, Skin: Negative for injury, rash, and discoloration, Neuro: Negative for headache, weakness, numbness, tingling, and seizure activity. Psych: Negative for depression, anxiety, suicide ideation, homicidal ideation, and hallucinations, Allergy/Immunology: Negative for hives, rash, and allergies, Endocrine: Negative for neck swelling, polydipsia, polyuria, polyphagia, and marked weight changes, Hematologic/Lymphatic: Negative for swollen nodes, abnormal bleeding, and unusual bruising. 10:24 Abdomen/GI: Positive for nausea and vomiting, EMS reported diarrhea but the patient specifically denies that at this time. Exam: 10:24 Constitutional: This is a well developed, well nourished patient who is awake, alert, kdr and in no acute distress. Head/Face: Normocephalic, atraumatic. Eyes: Pupils equal round and reactive to light, extra-ocular motions intact. Lids and lashes normal. Conjunctiva and sclera are non-icteric and not injected. Cornea within normal limits. Periorbital areas with no swelling, redness, or edema. Neck: Trachea midline, no thyromegaly or masses palpated, and no cervical lymphadenopathy. Supple, full range of motion without nuchal rigidity, or vertebral point tenderness. No Meningismus. Chest/axilla: Normal chest wall appearance and motion. Nontender with no deformity. No lesions are appreciated. Cardiovascular: Regular rate and rhythm with a normal S1 and S2. No gallops, murmurs, or rubs. Normal PMI, no JVD. No pulse deficits. Respiratory: Lungs have equal breath sounds bilaterally, clear to auscultation and percussion. No rales, rhonchi or wheezes noted. No increased work of breathing, no retractions or nasal flaring. Abdomen/GI: Soft, non-tender, with normal bowel sounds. No distension or tympany. No guarding or rebound. No evidence of tenderness throughout. Back: No spinal tenderness. No costovertebral tenderness. Full range of motion. Skin: Warm, dry with normal turgor. Normal color with no rashes, no lesions, and no evidence of cellulitis. MS/ Extremity: Pulses equal, no cyanosis. Neurovascular intact. Full, normal range of motion. Neuro: Awake and alert, GCS 15, oriented to person, place, time, and situation. Cranial nerves II-XII grossly intact. Motor strength 5/5 in all extremities. Sensory grossly intact. Cerebellar exam normal. Normal gait. 10:24 Psych: Behavior/mood is pleasant, cooperative, anxious, Affect is animated, Oriented to person, place, time, Patient has no thoughts/intents to harm self or others. Judgement / Insight is Vital Signs: 08:48 BP 168 / 88; Pulse 100; Resp 16; Temp 98; Pulse Ox 97% ; bp 09:44 BP 164 / 89; Pulse 104; Resp 20; Pulse Ox 98% on R/A; bw MDM: 10:13 Patient medically screened. [facility] 10:24 Data reviewed: vital signs, nurses notes, old medical records, lab test result(s), kdr radiologic studies. Counseling: I had a detailed discussion with the patient and/or guardian regarding: the historical points, exam findings, and any diagnostic results supporting the discharge/admit diagnosis, lab results, radiology results, the need for outpatient follow up. 10/10 08:50 Order name: Basic Metabolic Panel; Complete Time: 10: [facility] 10/10 08:50 Order name: CBC with Diff; Complete Time: : [facility] 10/10 08:50 Order name: Hepatic Function; Complete Time: : [facility] 10/10 08:50 Order name: Lipase; Complete Time: 10: [facility] 10/10 08:50 Order name: IV Saline Lock; Complete Time: 09:42 [facility] 10/10 08:50 Order name: Labs collected and sent; Complete Time: 09:42 [facility] 10/10 08:56 Order name: Urine Dipstick-Ancillary (obtain specimen); Complete Time: 09:51 kdr Administered Medications: 09:42 Drug: NS 0.9% 1000 ml Route: IV; Rate: 1 bolus; Site: left antecubital; Disposition: 10/10/20 10:13 Discharged to Home. Impression: Vomiting. - Condition is Stable. - Discharge Instructions: Nausea and Vomiting, Adult, [id number]. - Medication Reconciliation Form, Thank You Letter form. - Follow up: Private Physician; When: 2 - 3 days; Reason: If symptoms return, Further diagnostic work-up, Recheck today's complaints, Continuance of care, Re-evaluation by your physician. - Problem is new. - Symptoms have improved. Signatures: Dispatcher [employer] EDMS Matt Urias MD MD kdr Smirch, Shelby RN Torrey Mazariegos RN RN bp Webb, Bethany, RN RN bw Corrections: (The following items were deleted from the chart) 11:43 10:13 10/10/2020 10:13 Discharged to Home. Impression: Vomiting. Condition is Stable. ss Forms are Medication Reconciliation Form, Thank You Letter, Antibiotic Education, Prescription Opioid Use. Follow up: Private Physician; When: 2 - 3 days; Reason: If symptoms return, Further diagnostic work-up, Recheck today's complaints, Continuance of care, Re-evaluation by your physician. Problem is new. Symptoms have improved. kdr
[2020-10-10 12:06] VITALS: TEMP 98
[2020-10-10 12:07] VITALS: BP 164/89; O2SAT 98
== END 2020-10-10 11:43 | disposition home or self-care (01) ==
LOC: ER 08:46
DX: R11.10 Vomiting, unspecified (principal); F19.10 Other psychoactive substance abuse, uncomplicated; F41.9 Anxiety disorder, unspecified; F31.9 Bipolar disorder, unspecified; G89.29 Other chronic pain; I10 Essential (primary) hypertension; I25.2 Old myocardial infarction; F17.210 Nicotine dependence, cigarettes, uncomplicated
CPT/HCPCS: 85025; 80048; 36415; 80076; 83690; 99284; J7030

== ENCOUNTER 2020-10-11 19:56 | Emergency (ER) | payer OTHER ==
--- OUTSIDE RECORDS SUMMARY | 2020-10-11 19:59 | XMS REPORT | Continuity of Care Document ---
:1970 Author Organization [facility] t Address [address] [place] [address] Care Team Providers Name Role Phone Dima [...] Department ID 2019-03-09 2019-03-09 LEIGH Zimmerman [id number] 00:00:00 00:00:00 Yehuda Harrell [id number] [place] [id number] [facility] [phone] [facility] 092 Building Results This patient has no known results.
[2020-10-11] MEDS ORDERED: HYDROCODONE/APAP 7.5/325 MG TAB ONE (21:45)
[2020-10-11] MEDS ORDERED: levETIRAcetam 500 MG TAB ONE (21:45)
[2020-10-11] MEDS ORDERED: IBUPROFEN 400 MG TAB ONE (21:45)
--- NOTE | 2020-10-11 22:40 | ER ---
Nurse's Notes [facility] Name: Heather Coon Age: 50 yrs Sex: Female : 1970 Arrival Date: 10/11/2020 Time: 19:57 Bed 16 Private MD: Diagnosis: Unspecified sprain of left thumb Presentation: 10/11 20:06 Chief complaint: Patient states: Was here yesterday, brought in by EMS cause I had a ca1 seizure, when I got discharged I fell outside and hurt my L thumb. It is swollen and hurting right now. I think I broke my L thumb. Coronavirus screen: Client denies travel out of the [place] in the last 14 days. At this time, the client does not indicate any symptoms associated with coronavirus-19. Ebola Screen: Patient negative for fever greater than or equal to 101.5 degrees Fahrenheit, and additional compatible Ebola Virus Disease symptoms Patient denies exposure to infectious person. Patient denies travel to an Ebola-affected area in the 21 days before illness onset. No symptoms or risks identified at this time. Initial Sepsis Screen: Does the patient meet any 2 criteria? No. Patient's initial sepsis screen is negative. Does the patient have a suspected source of infection? No. Patient's initial sepsis screen is negative. Risk Assessment: Do you want to hurt yourself or someone else? Patient reports no desire to harm self or others. Onset of symptoms was October 11, 2020. 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 - Social history:: Smoking status: Patient reports the use of cigarette tobacco products, smokes one pack cigarettes per day. Screenin:15 Abuse screen: Denies threats or abuse. Nutritional screening: No deficits noted. jb4 Tuberculosis screening: No symptoms or risk factors identified. Fall Risk None identified. Assessment: 21:15 General: Appears in no apparent distress. uncomfortable, Behavior is calm, cooperative, jb4 appropriate for age. Pain: Complains of pain in lateral aspect of left hand Pain radiates to Left thumb and First finger Pain currently is 9 out of 10 on a pain scale. Neuro: Level of Consciousness is awake, alert, obeys commands, Oriented to person, place, time, situation. Cardiovascular: Patient's skin is warm and dry. Respiratory: Airway is patent Respiratory effort is even, unlabored, Respiratory pattern is regular, symmetrical. GI: No signs and/or symptoms were reported involving the gastrointestinal system. : No signs and/or symptoms were reported regarding the genitourinary system. EENT: No signs and/or symptoms were reported regarding the EENT system. Derm: Skin is intact, Skin is pink, warm \T\ dry. Musculoskeletal: Circulation, motion, and sensation intact. Capillary refill < 3 seconds, Range of motion: limited in MCP of left thumb Swelling present in lateral aspect of left hand. 21:15 Reassessment: PT reports not haven taken her nightime dose of Keppra 500mg. Asked if we jb4 could give her a dose here. Provider notified of situation. Received verbal order to give Keppra 500mg PO x1. 22:30 Reassessment: Patient appears in no apparent distress at this time. Patient and/or jb4 family updated on plan of care and expected duration. Pain level reassessed. Patient is alert, oriented x 3, equal unlabored respirations, skin warm/dry/pink. Vital Signs: 20:06 BP 109 / 81; Pulse 99; Resp 18 S; Temp 98.2(TE); Pulse Ox 99% on R/A; Weight 56.7 kg ca1 (R); Height 5 ft. 2 in. (157.48 cm) (R); Pain 9/10; 21:30 BP 121 / 66; Pulse 96; Resp 16; Pulse Ox 100% on R/A; jb4 20:06 Body Mass Index 22.86 (56.70 kg, 157.48 cm) ca1 ED Course: 19:57 Patient arrived in ED. am4 20:08 Triage completed. ca1 20:09 Arm band placed on right wrist. ca1 21:03 Derrick Castillo PA is PHCP. cp 21:03 Darrick Coughlin MD is Attending Physician. cp 21:15 Patient has correct armband on for positive identification. Placed in gown. Bed in low jb4 position. Call light in reach. Side rails up X 1. Pulse ox on. NIBP on. 21:21 Zachariah Thomas, RN is Primary Nurse. jb4 21:37 XRAY Hand LEFT 3 View In Process Unspecified. EDMS 22:39 Errol Lainez MD is Referral Physician. cp 22:45 No provider procedures requiring assistance completed. Patient did not have IV access jb4 during this emergency room visit. 22:58 Orthoglass splint: Thumb spica splint applied on left forearm. dh4 Administered Medications: 21:34 Drug: Hydrocodone-Acetaminophen (7.5 mg-325 mg) 1 tabs Route: PO; jb4 22:00 Follow up: Response: No adverse reaction jb4 21:34 Drug: Ibuprofen 800 mg Route: PO; jb4 22:00 Follow up: Response: No adverse reaction jb4 21:34 Drug: Keppra 500 mg Route: PO; jb4 22:00 Follow up: Response: No adverse reaction jb4 22:30 Drug: Ativan 1 mg Route: PO; jb4 22:45 Follow up: Response: No adverse reaction jb4 Outcome: 22:39 Discharge ordered by MD. cp 23:00 Discharged to home via wheelchair, with family. jb4 23:00 Condition: stable 23:00 Discharge instructions given to patient, Instructed on discharge instructions, follow up and referral plans. medication usage, Demonstrated understanding of instructions, follow-up care, medications, Prescriptions given X 2. 23:28 Patient left the ED. jb4 Signatures: Dispatcher [employer] EDNV Derrick Castillo PA PA cp Zachariah Thomas RN RN jb4 Cheryl Gonzalez RN RN ca1 Huhn, Donald 4 Suzan Orellana Corrections: (The following items were deleted from the chart) 23:28 22:45 Discharged to home via wheelchair, with family, jb4 jb4 23:28 22:45 Condition: stable jb4 jb4 23:28 22:45 Discharge instructions given to patient, Instructed on discharge instructions, jb4 follow up and referral plans. medication usage, Demonstrated understanding of instructions, follow-up care, medications, Prescriptions given X 2, jb4
--- NOTE | 2020-10-11 22:40 | EDPHYS ---
Physician Documentation [facility] Name: Heather Coon Age: 50 yrs Sex: Female : 1970 Arrival Date: 10/11/2020 Time: 19:57 Bed 16 Private MD: ED Physician Darrick Coughlin HPI: 10/11 21:30 This 50 yrs old Female presents to ER via Wheelchair with complaints of Fall cp Injury. 21:30 Details of fall: The patient fell from an upright position, while walking. Onset: The cp symptoms/episode began/occurred yesterday. Associated injuries: The patient sustained left hand, ecchymosis, painful injury, swelling. 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 - Social history:: Smoking status: Patient reports the use of cigarette tobacco products, smokes one pack cigarettes per day. ROS: 21:35 MS/extremity: Positive for injury or acute deformity, ecchymosis, pain, swelling, cp tenderness, of the left hand and left thumb, Negative for paresthesias. 21:35 Constitutional: Negative for chills, fever. cp 21:35 All other systems are negative. Exam: 21:40 Constitutional: The patient appears in no acute distress, alert, awake, non-toxic, well cp developed, well nourished. 21:40 Head/Face: Normocephalic, atraumatic. cp 21:40 Musculoskeletal/extremity: Extremities: grossly normal except: noted in the left thumb and left first metacarpal: ecchymosis, pain, swelling, tenderness, ROM: limited passive range of motion due to pain, in the MCP of left thumb, Perfusion: the extremity is normally perfused throughout, Sensation intact. noted tenderness to palpation of left snuffbox. Vital Signs: 20:06 BP 109 / 81; Pulse 99; Resp 18 S; Temp 98.2(TE); Pulse Ox 99% on R/A; Weight 56.7 kg ca1 (R); Height 5 ft. 2 in. (157.48 cm) (R); Pain 9/10; 21:30 BP 121 / 66; Pulse 96; Resp 16; Pulse Ox 100% on R/A; jb4 20:06 Body Mass Index 22.86 (56.70 kg, 157.48 cm) ca1 Procedures: 23:30 Splinting: Splint applied to left thumb and left wrist using Orthoglass splint, thumb cp spica type. applied by nurse. Examined by me, post splint application: neurovascular intact, Patient tolerated well. MDM: 21:13 Patient medically screened. cp 22:00 Differential diagnosis: contusion, fracture, multiple trauma, sprain, strain, scaphoid cp fracture. 22:36 Data reviewed: vital signs, nurses notes, radiologic studies, plain films. Test cp interpretation: by ED physician or midlevel provider: xrays of left hand negative for acute fracture. Counseling: I had a detailed discussion with the patient and/or guardian regarding: the historical points, exam findings, and any diagnostic results supporting the discharge/admit diagnosis, radiology results, to return to the emergency department if symptoms worsen or persist or if there are any questions or concerns that arise at home. ED course: review of [place] prescription monitor website: narcotic score of 180, sedative score 130 and overdose risk score 300. Last RX written was for Tylenol #3, #20 on 06/08/2020. 10/11 21:19 Order name: XRAY Hand LEFT 3 View cp 10/11 22:30 Order name: Splint: orthoglass thumb spica; Complete Time: 23:26 cp Administered Medications: 21:34 Drug: Hydrocodone-Acetaminophen (7.5 mg-325 mg) 1 tabs Route: PO; jb4 22:00 Follow up: Response: No adverse reaction jb4 21:34 Drug: Ibuprofen 800 mg Route: PO; jb4 22:00 Follow up: Response: No adverse reaction jb4 21:34 Drug: Keppra 500 mg Route: PO; jb4 22:00 Follow up: Response: No adverse reaction jb4 22:30 Drug: Ativan 1 mg Route: PO; jb4 22:45 Follow up: Response: No adverse reaction jb4 Disposition: 23:35 Chart complete. cp 10/12 00:19 Co-signature as Attending Physician, Darrick Coughlin MD. ma2 Disposition: 10/11/20 22:39 Discharged to Home. Impression: Unspecified sprain of left thumb. - Condition is Stable. - Discharge Instructions: Thumb Sprain. - Prescriptions for Ibuprofen 800 mg Oral Tablet - take 1 tablet by ORAL route every 8 hours As needed take with food; 30 tablet. Tylenol- Codeine #3 300-30 mg Oral Tablet - take 2 tablets by ORAL route every 8-12 hours As needed; 15 tablet. - Medication Reconciliation Form, Thank You Letter, Antibiotic Education, Prescription Opioid Use form. - Follow up: Errol Lainez MD; When: 2 - 3 days; Reason: Recheck today's complaints. - Problem is new. - Symptoms have improved. Signatures: Dispatcher [employer] EDMS Derrick Castillo PA PA cp Bryson, James, RN RN jb4 Darrick Coughlin MD MD ma2 Cheryl Gonzalez RN RN ca1 Corrections: (The following items were deleted from the chart) 10/11 23:28 22:39 10/11/2020 22:39 Discharged to Home. Impression: Unspecified sprain of left jb4 thumb. Condition is Stable. Forms are Medication Reconciliation Form, Thank You Letter, Antibiotic Education, Prescription Opioid Use. Follow up: Errol Lainez; When: 2 - 3 days; Reason: Recheck today's complaints. Problem is new. Symptoms have improved. cp
[2020-10-11] MEDS ORDERED: LORAZEPAM 1 MG TABLET ONE (22:44)
[2020-10-12 02:24] VITALS: BP 121/66; O2SAT 100
[2020-10-12 02:25] VITALS: TEMP 98.2
--- NOTE | 2020-10-12 09:11 | RAD REPORT ---
EXAM DESCRIPTION: RAD - Hand Left 3 View - 10/11/2020 9:38 pm CLINICAL HISTORY: left thumb pain/swelling COMPARISON: No comparisons FINDINGS: Mild osteoarthritis affects the radiocarpal joint. No acute fracture or dislocation. Soft tissue swelling is present about the wrist.
== END 2020-10-11 23:28 | disposition home or self-care (01) ==
LOC: ER 19:56
DX: S63.602A Unspecified sprain of left thumb, initial encounter (principal); W18.30XA Fall on same level, unspecified, initial encounter; Y93.01 Activity, walking, marching and hiking; Y92.9 Unspecified place or not applicable; I10 Essential (primary) hypertension; Z88.5 Allergy status to narcotic agent; Z91.018 Allergy to other foods
CPT/HCPCS: 99284

== ENCOUNTER 2020-11-14 20:50 | Emergency (ER) | payer OTHER ==
--- OUTSIDE RECORDS SUMMARY | 2020-11-14 20:53 | XMS REPORT | Continuity of Care Document ---
:[address] [facility] t Address [address] [place] [address] Care Team Providers Name Role Phone Dima [...] Department ID 2019-03-09 2019-03-09 LEIGH Zimmerman [id number] 00:00:00 00:00:00 Yehuda Harrell [id number] [place] [id number] [phone] Building Results This patient has no known results.
[2020-11-14] MEDS ORDERED: NA CHLORIDE 0.9% 1,000 ML ONE (22:12)
[2020-11-14] MEDS ORDERED: MEPERIDINE HCL 50 MG/ML ONE (22:12)
[2020-11-14] MEDS ORDERED: ONDANSETRON 4 MG/2 ML VIAL ONE (22:12)
[2020-11-14 22:30] LABS: ALT/SGPT 14 U/L (12-78); AST/SGOT 12 U/L (15-37); Albumin 3.4 g/dL (3.4-5.0); Alkaline Phosphatase 68 U/L (45-117); BUN Blood Urea Nitrogen 12 mg/dL (7-18); Bicarbonate 27 mmol/L (21-32); Bilirubin Direct < 0.1 mg/dL (0-0.2); Bilirubin Total 0.3 mg/dL (0.2-1.0); Glucose Level 116 mg/dL (74-106); Lipase 132 U/L (73-393); Potassium 3.4 mmol/L (3.5-5.1); Protein, Total 6.9 g/dL (6.4-8.2); Sodium Level 141 mmol/L (136-145)
[2020-11-14 22:40] LABS: Absolute Lymphocytes (CBC) 2.3 K/uL (0.7-4.9); Basophils % 1.3 % (0-1.3); Hematocrit 36.4 % (36.0-45.0); Lymphocytes % 25.6 % (15.3-44.8); MPV 6.7 fL (7.6-11.3); RBC Red Blood Cell Count 4.42 M/uL (3.86-4.86)
--- NOTE | 2020-11-15 00:03 | ER ---
Nurse's Notes [facility] Name: Heather Coon Age: 50 yrs Sex: Female : 1970 Arrival Date: 11/14/2020 Time: 20:54 Bed 2 Private MD: Diagnosis: Abdominal pain Presentation: 11/14 20:55 Chief complaint: EMS states: Pt is having left lower ABD pain; pt states it may be a vg1 flare up of diverticulitis. Coronavirus screen: Client denies travel out of the [place] in the last 14 days. Ebola Screen: Patient negative for fever greater than or equal to 101.5 degrees Fahrenheit, and additional compatible Ebola Virus Disease symptoms. Initial Sepsis Screen: Does the patient meet any 2 criteria? No. Patient's initial sepsis screen is negative. Does the patient have a suspected source of infection? No. Patient's initial sepsis screen is negative. Risk Assessment: Do you want to hurt yourself or someone else? Patient reports no desire to harm self or others. Onset of symptoms was November 14, 2020. 20:55 Method Of Arrival: EMS: [facility] vg1 20:55 Acuity: ANDER 3 vg1 Triage Assessment: 11/15 00:13 General: Behavior is calm, cooperative. 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 - Social history:: Smoking status: Patient reports the use of cigarette tobacco products. Screenin:00 Abuse screen: Denies threats or abuse. Nutritional screening: No deficits noted. vg1 Tuberculosis screening: No symptoms or risk factors identified. Fall Risk No fall in past 12 months (0 pts). No secondary diagnosis (0 pts). IV access (20 points). Ambulatory Aid- None/Bed Rest/Nurse Assist (0 pts). Gait- Normal/Bed Rest/Wheelchair (0 pts) Mental Status- Oriented to own ability (0 pts). Total Costello Fall Scale indicates No Risk (0-24 pts). Assessment: 20:58 General: Appears in no apparent distress. uncomfortable, actively vomiting. Pain: vg1 Complains of pain in right upper quadrant and left lower quadrant Pain currently is 10 out of 10 on a pain scale. Neuro: Level of Consciousness is awake, alert, obeys commands, Oriented to person, place, time, situation. Cardiovascular: Patient's skin is warm and dry. Respiratory: Airway is patent Respiratory effort is even, unlabored. GI: Bowel sounds present X 4 quads. Abd is soft X 4 quads Abdomen is tender to palpation in left lower quadrant. : No signs and/or symptoms were reported regarding the genitourinary system. EENT: No signs and/or symptoms were reported regarding the EENT system. Derm: Skin is intact, Skin is pink, warm \T\ dry. Musculoskeletal: Circulation, motion, and sensation intact. 21:48 Reassessment: Received VO from Dr Jordan to administer Zofran 4 mg IVP x1 and Demerol 50 vg1 mg IVP x1. 22:31 Reassessment: Patient appears in no apparent distress at this time. Patient and/or jb4 family updated on plan of care and expected duration. Pain level reassessed. Patient is alert, oriented x 3, equal unlabored respirations, skin warm/dry/pink. Patient states feeling better. 23:30 Reassessment: Patient and/or family updated on plan of care and expected duration. Pain jb4 level reassessed. Pt is resting comfortably in bed with respirations even and unlabored. There are no s/s of pain or distress noted. Vital Signs: 20:55 BP 133 / 92; Pulse 95; Resp 20; Temp 99.4(O); Pulse Ox 98% on R/A; Weight 70.31 kg; vg1 Height 5 ft. 3 in. (160.02 cm); Pain 10/10; 22:00 BP 131 / 98; Pulse 84; Resp 16; Pulse Ox 99% on R/A; jb4 23:30 BP 98 / 73; Pulse 77; Resp 18; Pulse Ox 94% on R/A; jb4 11/15 00:14 BP 128 / 81; Pulse 85; Resp 18; Pulse Ox 100% on R/A; wh 11/14 20:55 Body Mass Index 27.46 (70.31 kg, 160.02 cm) vg1 ED Course: 11/14 20:54 Patient arrived in ED. vg1 20:56 Triage completed. vg1 21:00 Patient has correct armband on for positive identification. Bed in low position. Call vg1 light in reach. Side rails up X2. 21:00 Arm band placed on. vg1 21:03 Ewelina Vitale, RN is Primary Nurse. vg1 21:43 Kavon Jordan MD is Attending Physician. pkl 21:48 Initial lab(s) drawn, by tx, sent to lab. Inserted saline lock: 20 gauge in right vg1 forearm, using aseptic technique. Blood collected. 22:18 Primary Nurse role handed off by Ewelina Vitale, RN jb4 22:18 Zachariah Thomas, RN is Primary Nurse. jb4 22:51 CT Abd/Pelvis - IV Contrast Only In Process Unspecified. EDMS 11/15 00:02 Ronnell Luz MD is Referral Physician. pkl 00:13 No provider procedures requiring assistance completed. IV discontinued, intact, wh bleeding controlled, No redness/swelling at site. Administered Medications: 11/14 21:50 CANCELLED (Duplicate Order): Demerol (meperidine) 50 mg IVP once; RASS on ADMIN: vg1 Combtv4, Very Agttd3, Agttd2, Rstlss1, AlertClm0, Drwsy-1, Lt Sdtn-2, Mod Sdtn-3, Dp Sdtn-4, UnArsble-5 21:50 CANCELLED (Duplicate Order): Zofran (Ondansetron) 4 mg IVP once; over 2 minutes vg1 22:03 Drug: NS 0.9% 500 ml Route: IV; Rate: bolus; Site: right antecubital; vg1 22:30 Follow up: Response: No adverse reaction; IV Status: Completed infusion; IV Intake: jb4 500ml 22:04 Drug: Demerol (meperidine) 50 mg Route: IVP; Site: right antecubital; vg1 11/15 00:04 Follow up: Response: No adverse reaction; Pain is decreased; RASS: Alert and Calm (0) wh 11/14 22:04 Drug: Zofran (Ondansetron) 4 mg Route: IVP; Site: right antecubital; vg1 11/15 00:04 Follow up: Response: No adverse reaction 11/14 22:30 Drug: NS 0.9% 1000 ml Route: IV; Rate: 125 ml/hr; Site: right antecubital; jb4 11/15 00:05 Follow up: Response: No adverse reaction; IV Status: Completed infusion 00:04 Drug: K-Dur (potassium chloride) 20 mEq Route: PO; 00:06 Follow up: Response: No adverse reaction 00:13 Drug: [place] (HYDROcodone-acetaminophen) (7.5 mg-325 mg) 1 tabs {Note: RASS 0.} Route: PO; Intake: 11/14 22:30 IV: 500ml; Total: 500ml. jb4 Outcome: 11/15 00:03 Discharge ordered by . pklisa 00:14 Discharged to home via wheelchair. 00:14 Condition: stable 00:14 Discharge instructions given to patient, Instructed on discharge instructions, follow up and referral plans. medication usage, POC Demonstrated understanding of instructions, follow-up care, medications, POC Prescriptions given X 1. 00:27 Patient left the ED. mw2 Signatures: Dispatcher [employer] EDKavon Evangelista MD MD pkl Bryson, James, RN RN jb4 Otis Frazier RN RN Marlyn Marrero mw2 Ewelina Vitale RN RN vg1
--- NOTE | 2020-11-15 00:04 | EDPHYS ---
Physician Documentation [facility] Name: Heather Coon Age: 50 yrs Sex: Female : 1970 Arrival Date: 11/14/2020 Time: 20:54 Bed 2 Private MD: ED Physician Kavon Jordan HPI: 11/14 22:07 This 50 yrs old Female presents to ER via EMS with complaints of Abdominal pkl Pain. 22:07 The patient presents with abdominal pain in the left lower quadrant. Onset: The pkl symptoms/episode began/occurred today. The symptoms do not radiate. Associated signs and symptoms: Pertinent positives: nausea. The patient has experienced similar episodes in the past, a few times. Patient has H/O diverticulitis. 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 - Social history:: Smoking status: Patient reports the use of cigarette tobacco products. ROS: 22:07 Eyes: Negative for injury, pain, redness, and discharge, ENT: Negative for injury, pkl pain, and discharge, Neck: Negative for injury, pain, and swelling, Cardiovascular: Negative for chest pain, palpitations, and edema, Respiratory: Negative for shortness of breath, cough, wheezing, and pleuritic chest pain. 22:07 Abdomen/GI: Positive for abdominal pain, nausea, of the left lower quadrant. 22:07 Back: Negative for acute changes. 22:07 : Negative for urinary symptoms. 22:07 MS/extremity: Negative for acute changes. 22:07 Skin: Negative for rash. 22:07 Neuro: Negative for altered mental status, loss of consciousness. Exam: 22:07 Head/Face: Normocephalic, atraumatic. Eyes: Pupils equal round and reactive to light, pkl extra-ocular motions intact. Lids and lashes normal. Conjunctiva and sclera are non-icteric and not injected. Cornea within normal limits. Periorbital areas with no swelling, redness, or edema. ENT: Nares patent. No nasal discharge, no septal abnormalities noted. Tympanic membranes are normal and external auditory canals are clear. Oropharynx with no redness, swelling, or masses, exudates, or evidence of obstruction, uvula midline. Mucous membranes moist. Neck: Trachea midline, no thyromegaly or masses palpated, and no cervical lymphadenopathy. Supple, full range of motion without nuchal rigidity, or vertebral point tenderness. No Meningismus. Chest/axilla: Normal chest wall appearance and motion. Nontender with no deformity. No lesions are appreciated. Cardiovascular: Regular rate and rhythm with a normal S1 and S2. No gallops, murmurs, or rubs. Normal PMI, no JVD. No pulse deficits. Respiratory: Lungs have equal breath sounds bilaterally, clear to auscultation and percussion. No rales, rhonchi or wheezes noted. No increased work of breathing, no retractions or nasal flaring. 22:07 Abdomen/GI: Bowel sounds: normal, Palpation: soft, mild abdominal tenderness, in the left lower quadrant. 22:07 Back: Exam negative for acute changes. 22:07 : Exam negative for acute changes. 22:07 Musculoskeletal/extremity: Exam is negative for acute changes. 22:07 Skin: Exam negative for rash. 22:07 Neuro: Orientation: is normal, Mentation: is normal, Cranial nerves: grossly normal, Motor: is normal. Vital Signs: 20:55 BP 133 / 92; Pulse 95; Resp 20; Temp 99.4(O); Pulse Ox 98% on R/A; Weight 70.31 kg; vg1 Height 5 ft. 3 in. (160.02 cm); Pain 10/10; 22:00 BP 131 / 98; Pulse 84; Resp 16; Pulse Ox 99% on R/A; jb4 23:30 BP 98 / 73; Pulse 77; Resp 18; Pulse Ox 94% on R/A; jb4 11/15 00:14 BP 128 / 81; Pulse 85; Resp 18; Pulse Ox 100% on R/A; wh 11/14 20:55 Body Mass Index 27.46 (70.31 kg, 160.02 cm) vg1 MDM: 11/14 21:43 Patient medically screened. pkl 23:59 Data reviewed: vital signs, nurses notes, lab test result(s), radiologic studies, CT pkl scan. 11/14 21:37 Order name: Basic Metabolic Panel 11/14 21:37 Order name: CBC with Diff; Complete Time: 23:43 bb 11/14 21:37 Order name: Hepatic Function; Complete Time: 23:43 bb 11/14 21:37 Order name: Lipase; Complete Time: 23:43 bb 11/14 21:37 Order name: Basic Metabolic Panel; Complete Time: 23:43 EDMS 11/14 21:50 Order name: CT Abd/Pelvis - IV Contrast Only pkl 11/14 21:37 Order name: IV Saline Lock; Complete Time: 21:48 bb 11/14 21:37 Order name: Labs collected and sent; Complete Time: 21:48 bb Administered Medications: 21:50 CANCELLED (Duplicate Order): Demerol (meperidine) 50 mg IVP once; RASS on ADMIN: vg1 Combtv4, Very Agttd3, Agttd2, Rstlss1, AlertClm0, Drwsy-1, Lt Sdtn-2, Mod Sdtn-3, Dp Sdtn-4, UnArsble-5 21:50 CANCELLED (Duplicate Order): Zofran (Ondansetron) 4 mg IVP once; over 2 minutes 1 22:03 Drug: NS 0.9% 500 ml Route: IV; Rate: bolus; Site: right antecubital; [facility] 22:30 Follow up: Response: No adverse reaction; IV Status: Completed infusion; IV Intake: jb4 500ml 22:04 Drug: Demerol (meperidine) 50 mg Route: IVP; Site: right antecubital; 1 11/15 00:04 Follow up: Response: No adverse reaction; Pain is decreased; RASS: Alert and Calm (0) 11/14 22:04 Drug: Zofran (Ondansetron) 4 mg Route: IVP; Site: right antecubital; 1 11/15 00:04 Follow up: Response: No adverse reaction 11/14 22:30 Drug: NS 0.9% 1000 ml Route: IV; Rate: 125 ml/hr; Site: right antecubital; jb4 11/15 00:05 Follow up: Response: No adverse reaction; IV Status: Completed infusion 00:04 Drug: K-Dur (potassium chloride) 20 mEq Route: PO; 00:06 Follow up: Response: No adverse reaction 00:13 Drug: [place] (HYDROcodone-acetaminophen) (7.5 mg-325 mg) 1 tabs {Note: RASS 0.} Route: PO; Disposition: 11/15/20 00:03 Discharged to Home. Impression: Abdominal pain. - Condition is Stable. - Prescriptions for Zofran 4 mg Oral Tablet - take 1 tablet by ORAL route every 12 hours As needed; 6 tablet. - Medication Reconciliation Form, Thank You Letter, Antibiotic Education, Prescription Opioid Use form. - Follow up: Ronnell Luz MD; When: 1 - 2 days; Reason: Re-evaluation by your physician. - Problem is new. - Symptoms have improved. Signatures: Dispatcher [employer] EDMS Kavon Jordan MD MD pkl Lisa Kauffman, RN RN Zachariah Thomas, RN RN jb4 Otis Frazier RN BETH Marlyn Marrero 2 Ewelina Vitale, RN RN vg1 Corrections: (The following items were deleted from the chart) 11/14 21:50 21:49 Demerol (meperidine) 50 mg IVP once; RASS on ADMIN: Combtv4, Very Agttd3, Agttd2, vg1 Rstlss1, AlertClm0, Drwsy-1, Lt Sdtn-2, Mod Sdtn-3, Dp Sdtn-4, UnArsble-5 ordered. pkl 21:50 21:49 Zofran (Ondansetron) 4 mg IVP once; over 2 minutes ordered. pkl vg1 11/15 00:27 00:03 11/15/2020 00:03 Discharged to Home. Impression: Abdominal pain. Condition is mw2 Stable. Forms are Medication Reconciliation Form, Thank You Letter, Antibiotic Education, Prescription Opioid Use. Follow up: Ronnell Luz; When: 1 - 2 days; Reason: Re-evaluation by your physician. Problem is new. Symptoms have improved. pkl
[2020-11-15] MEDS ORDERED: POTASSIUM CL SA 10 MEQ TAB PO ONE (00:21)
[2020-11-15] MEDS ORDERED: HYDROCODONE/APAP 7.5/325 MG TAB ONE (00:27)
[2020-11-15 01:01] VITALS: TEMP 99.4
[2020-11-15 01:05] VITALS: BP 128/81; O2SAT 100
--- NOTE | 2020-11-15 12:51 | RAD REPORT ---
EXAM DESCRIPTION: Abdomen Pelvis W Contrast CLINICAL HISTORY: 50 years Female ABD PAIN COMPARISON: 05/15/2020. TECHNIQUE: Contiguous axial images obtained through the abdomen and pelvis following IV contrast. Re formatted images obtained. This exam was performed according to our department optimization program which includes automated exp osure control, adjustment of the mA and/or kv according to patient size and/or use of iterative recon struction technique. FINDINGS: The lung bases are clear. Coronary artery calcifications. The liver is enlarged measuring 18 cm. Mild fatty replacement in the region of the falciform ligament . The spleen and pancreas appear unremarkable. There is a stable left adrenal mass. The kidneys appear unremarkable. No hydronephrosis. Changes from previous cholecystectomy. Atherosclerotic calcifications. No aneurysmal dilatation of the aorta. The stomach is distended with fluid. No bowel obstruction. The appendix appears unremarkable. Occasional colonic diverticula most pronounced in the descending and sigmoid colon. Wall thickening within proximal loops of small bowel which could be from incomplete distention but clinical correlati on is recommended to exclude the possibility of infectious or inflammatory enteritis. No significant free pelvic fluid. Degenerative changes in the spine. IMPRESSION: Wall thickening within proximal loops of small bowel which could be from incomplete dist ention but clinical correlation is recommended to exclude the possibility of infectious or inflammato ry enteritis. Stable left adrenal mass likely an adenoma. Other findings as above. Electronically signed by: Michele Mckeon MD 11/14/2020 11:12 PM CDT Due to temporary technical issues with the PACS/Fluency reporting system, reports are being signed by the in house radiologists without review as a courtesy to insure prompt reporting. The interpreting radiologist is fully responsible for the content of the report.
== END 2020-11-15 00:27 | disposition home or self-care (01) ==
LOC: ER 20:50
DX: R10.32 Left lower quadrant pain (principal); I10 Essential (primary) hypertension; G40.909 Epilepsy, unspecified, not intractable, without status epilepticus; F17.210 Nicotine dependence, cigarettes, uncomplicated; Z88.5 Allergy status to narcotic agent; Z91.018 Allergy to other foods
CPT/HCPCS: 96361; 85025; 80048; 36415; 80076; 83690; 74177; 96375; 96374; 99284; Q9967; J2175; J7030; J2405

== ENCOUNTER 2020-11-21 20:59 | Emergency (ER) | payer OTHER ==
--- OUTSIDE RECORDS SUMMARY | 2020-11-21 21:03 | XMS REPORT | Continuity of Care Document ---
:[address] [facility] t Address [address] [place] [address] Care Team Providers Name Role Phone Dima [...] Department ID 2019-03-09 2019-03-09 LEIGH Zimmerman [id number] 00:00:00 00:00:00 Yehuda Harrell [id number] [facility] [id number] [phone] nal 092 Building Results This patient has no known results.
[2020-11-21] MEDS ORDERED: LEVETIRACETAM 500 MG/5 ML VIAL IV ONE (23:21)
[2020-11-21] MEDS ORDERED: KETOROLAC 30 MG/ML INJ ONE (23:22)
[2020-11-21] MEDS ORDERED: NA CHLORIDE 0.9% 1,000 ML ONE (23:22)
[2020-11-21] MEDS ORDERED: NA CHLORIDE 0.9% 100 ML ONE (23:22)
[2020-11-21 23:30] LABS: Absolute Lymphocytes (CBC) 3.8 K/uL (0.7-4.9); Basophils % 1.2 % (0-1.3); Hematocrit 35.4 % (36.0-45.0); Lymphocytes % 37.8 % (15.3-44.8); MPV 6.8 fL (7.6-11.3); RBC Red Blood Cell Count 4.27 M/uL (3.86-4.86)
[2020-11-21 23:33] LABS: Protime INR 0.96
[2020-11-21 23:42] LABS: BUN Blood Urea Nitrogen 6 mg/dL (7-18); Bicarbonate 26 mmol/L (21-32); Glucose Level 84 mg/dL (74-106); Magnesium 2.1 mg/dL (1.8-2.4); Sodium Level 143 mmol/L (136-145); Troponin (Emerg Dept Use Only) < 0.02 ng/mL (0.0-0.045)
[2020-11-21] MEDS ORDERED: ONDANSETRON 4 MG/2 ML VIAL ONE (23:51)
[2020-11-21] MEDS ORDERED: MORPHINE 4 MG/ML SYR ONE (23:51)
--- NOTE | 2020-11-22 00:31 | ER ---
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 I slo feel very short of breath sinceI yesterday and has gradually gotten worse that I easily get winded when I walk. And I also have swelling on will. feet and they feel real cold. Coronavirus screen: Client denies travel out of the [place] in the last 14 days. shortness of breath, Client presents with at least one sign or symptom that may indicate coronavirus-19. Standard/surgical mask placed on the client. Provider contacted for isolation considerations. Ebola Screen: Patient negative for fever greater than or equal to 101.5 degrees Fahrenheit, and additional compatible Ebola Virus Disease symptoms Patient denies exposure to infectious person. Patient denies travel to an Ebola-affected area in the 21 days before illness onset. No symptoms or risks identified at this time. Initial Sepsis Screen: Does the patient meet any 2 criteria? No. Patient's initial sepsis screen is negative. Does the patient have a suspected source of infection? No. Patient's initial sepsis screen is negative. Risk Assessment: Do you want to hurt yourself or someone else? Patient reports no desire to harm self or others. Onset of symptoms was November 21, 2020. 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 Pneumococcal vaccine is up to date, Flu vaccine is not up to date. - Social history:: Smoking status: Patient reports the use of cigarette tobacco products, smokes one pack cigarettes per day. - Family history:: not pertinent. Screenin/06 00:21 Abuse screen: Denies threats or abuse. Denies injuries from another. Nutritional ad5 screening: No deficits noted. Tuberculosis screening: No symptoms or risk factors identified. Fall Risk None identified. Assessment: 11/21 23:00 Reassessment:. General: Appears distressed, uncomfortable, Behavior is cooperative, ad5 appropriate for age, anxious, restless. Pain: Complains of pain in right lower back Pain radiates to right leg and left leg Pain currently is 9 out of 10 on a pain scale. at worst was 9 out of 10 on a pain scale. Quality of pain is described as heavy, stabbing, Pain began gradually, 2-3 days ago. Is continuous, Alleviated by nothing. Aggravated by increased activity, weight bearing, Noted to be grimacing, guarding, restless. Neuro: Level of Consciousness is awake, alert, obeys commands, Oriented to person, place, time, situation, Appropriate for age Seat Cover Cutter are equal bilaterally Moves all extremities. Gait is steady, Speech is normal, Facial symmetry appears normal, Pupils are PERRLA, Intact Reports weakness in right leg and left leg Seizure activity pt reports "seizure" yesterday, as well as today in ED WR; hx of seizures, on Keppra for this; denies missing any doses or recent changes. Cardiovascular: Reports fatigue, Denies chest pain, shortness of breath, Heart tones S1 S2 Capillary refill < 3 seconds Clubbing of nail beds is absent JVD is absent Pulses are all present. Rhythm is regular. Respiratory: No deficits noted. Airway is patent Trachea midline Respiratory effort is even, unlabored, Respiratory pattern is regular, symmetrical. GI: No deficits noted. Abdomen is flat, non-distended, Bowel sounds present X 4 quads. : No deficits noted. EENT: Reports blurred vision pt reports loss of vision yesterday for approximately 2 minutes; denies current vision c/o at this time; eyes PERRLA will. Derm: No deficits noted. Musculoskeletal: Circulation, motion, and sensation intact. Capillary refill < 3 seconds, Range of motion: limited in left hip, left knee, right hip and right knee Tenderness present in right low back. 23:41 Reassessment: Pt appears agitated toward Radiology at bedside, reports "I have ad5 ibuprofen 800 at home and they want to give me Toradol...I came her because nothing worked". Pt heard by this RN, reoriented to plan of care and MD informed of pt concerns. Orders for additional medication at this time per MD MASON. 11/22 00:20 Reassessment: Patient appears in no apparent distress at this time. Patient and/or ad5 family updated on plan of care and expected duration. Pain level reassessed. Patient is alert, oriented x 3, equal unlabored respirations, skin warm/dry/pink. Patient states feeling better. Vital Signs: 11/21 21:24 BP 125 / 79; Pulse 88; Resp 16 S; Temp 98.5; Pulse Ox 99% on R/A; Weight 58.97 kg (R); ca1 Height 5 ft. 3 in. (160.02 cm) (R); 22:32 BP 150 / 107; Pulse 92; Resp 18; Pulse Ox 98% on R/A; ad5 23:00 BP 111 / 68; Pulse 84; Resp 18; Pulse Ox 98% on R/A; Pain 9/10; ad5 23:00 BP 150 / 101; Pulse 85; Resp 18; Pulse Ox 99% ; ad5 11/22 00:20 BP 114 / 71; Pulse 80; Resp 16; Pulse Ox 99% on R/A; Pain 6/10; ad5 11/21 21:24 Body Mass Index 23.03 (58.97 kg, 160.02 cm) ca1 ED Course: 11/21 21:01 Patient arrived in ED. am4 21:28 Triage completed. ca1 21:28 Arm band placed on right wrist. ca1 22:37 Darrick Coughlin MD is Attending Physician. ma2 23:00 Patient has correct armband on for positive identification. Placed in gown. Bed in low ad5 position. Call light in reach. Side rails up X2. deportation officer on. Pulse ox on. NIBP on. Door closed. Noise minimized. Warm blanket given. 23:06 Radiology exam delayed due to PT WANTS MEDS PRIOR TO EXAM. vm2 23:07 Lisa Kauffman, BETH is Primary Nurse. bb 23:24 Stroke CXR 1 View Sent. ad5 23:24 CT Stroke Brain w/o Contrast Sent. ad5 23:24 Ptt, Activated Sent. ad5 23:24 Protime (+inr) Sent. ad5 23:24 CBC with Diff Sent. ad5 23:24 Basic Metabolic Panel Sent. ad5 23:24 Troponin (emerg Dept Use Only) Sent. ad5 23:34 CT Stroke Brain w/o Contrast In Process Unspecified. EDMS 23:45 No provider procedures requiring assistance completed. Inserted saline lock: 18 gauge ad5 in right forearm, using aseptic technique. 23:46 Lumbar Spine (3 Views) XRAY Sent. ad5 11/22 00:15 Stroke CXR 1 View In Process Unspecified. EDMS 00:16 Lumbar Spine (3 Views) XRAY In Process Unspecified. EDMS 00:45 IV discontinued, intact, bleeding controlled, No redness/swelling at site. Pressure ad5 dressing applied. Administered Medications: 11/21 23:10 Drug: NS 0.9% 1000 ml Route: IV; Rate: 1 bolus; Site: right forearm; ad5 11/22 00:30 Follow up: IV Status: Completed infusion; IV Intake: 1000ml ad5 11/21 23:12 Drug: TORadol (ketorolac) 30 mg Route: IVP; Site: right forearm; ad5 23:35 Follow up: Response: No adverse reaction ad5 23:15 Drug: Keppra (levETIRAcetam) 1000 mg Route: IV; Rate: calculated rate; Site: right ad5 forearm; 23:15 Follow up: IV Status: Completed infusion; IV Intake: 100ml ad5 23:33 Drug: morphine 4 mg {Note: RASS 0.} Route: IVP; Site: right forearm; ad5 11/22 00:30 Follow up: Response: No adverse reaction; RASS: Alert and Calm (0) ad5 11/21 23:33 Drug: Zofran (Ondansetron) 4 mg Route: IVP; Site: right forearm; ad5 11/22 00:30 Follow up: Response: No adverse reaction ad5 Intake: 11/21 23:15 IV: 100ml; Total: 100ml. ad5 11/22 00:30 IV: 1000ml; Total: 1100ml. ad5 Outcome: 00:31 Discharge ordered by MD. suarez 00:45 Discharged to home ambulatory, with family. ad5 00:45 Condition: stable 00:45 Discharge instructions given to patient, Instructed on discharge instructions, follow up and referral plans. medication usage, Demonstrated understanding of instructions, follow-up care, medications. 00:57 Patient left the ED. ad5 Signatures: Dispatcher [employer] EDLisa Shin, RN RN Ewelina Merritt 2 Darrick Coughlin MD MD wi2 Chreyl Gonzalez RN RN ca1 Suzan Orellana [facility] ad5
--- NOTE | 2020-11-22 00:31 | EDPHYS ---
Physician Documentation [facility] Name: Heather Coon Age: 50 yrs Sex: Female : 1970 Arrival Date: 11/21/2020 Time: 21:01 Bed 14 Private MD: ED Physician Darrick Coughlin HPI: 11/21 23:34 This 50 yrs old Female presents to ER via Wheelchair with complaints of S/S ma2 of Possible Stroke, Probable Seizure. 23:34 This 50 yrs old Female presents to ER via Wheelchair with complaints of S/S ma2 of Probable Seizure. 23:34 Onset: The symptoms/episode began/occurred gradually, 1 day(s) ago. Associated signs ma2 and symptoms: Pertinent negatives: ataxia, combativeness, diaphoresis, diarrhea. Severity of symptoms: At their worst the symptoms were moderate in the emergency department the symptoms are unchanged. The patient has experienced similar episodes in the past. on keppra and has not been compliant last fewdays . 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 Pneumococcal vaccine is up to date, Flu vaccine is not up to date. - Social history:: Smoking status: Patient reports the use of cigarette tobacco products, smokes one pack cigarettes per day. - Family history:: not pertinent. ROS: 23:34 Constitutional: Negative for fever, chills, and weight loss. ma2 23:34 All other systems are negative. Exam: 23:34 Constitutional: This is a well developed, well nourished patient who is awake, alert, ma2 and in no acute distress. Head/Face: Normocephalic, atraumatic. Chest/axilla: Normal chest wall appearance and motion. Nontender with no deformity. No lesions are appreciated. Cardiovascular: Regular rate and rhythm with a normal S1 and S2. No gallops, murmurs, or rubs. Normal PMI, no JVD. No pulse deficits. Respiratory: Lungs have equal breath sounds bilaterally, clear to auscultation and percussion. No rales, rhonchi or wheezes noted. No increased work of breathing, no retractions or nasal flaring. Abdomen/GI: Soft, non-tender, with normal bowel sounds. No distension or tympany. No guarding or rebound. No evidence of tenderness throughout. Back: No spinal tenderness. No costovertebral tenderness. Full range of motion. Skin: Warm, dry with normal turgor. Normal color with no rashes, no lesions, and no evidence of cellulitis. MS/ Extremity: Pulses equal, no cyanosis. Neurovascular intact. Full, normal range of motion. Neuro: Awake and alert, GCS 15, oriented to person, place, time, and situation. Cranial nerves II-XII grossly intact. Motor strength 5/5 in all extremities. Sensory grossly intact. Cerebellar exam normal. Normal gait. Psych: Awake, alert, with orientation to person, place and time. Behavior, mood, and affect are within normal limits. Vital Signs: 21:24 BP 125 / 79; Pulse 88; Resp 16 S; Temp 98.5; Pulse Ox 99% on R/A; Weight 58.97 kg (R); ca1 Height 5 ft. 3 in. (160.02 cm) (R); 22:32 BP 150 / 107; Pulse 92; Resp 18; Pulse Ox 98% on R/A; ad5 23:00 BP 111 / 68; Pulse 84; Resp 18; Pulse Ox 98% on R/A; Pain 9/10; ad5 23:00 BP 150 / 101; Pulse 85; Resp 18; Pulse Ox 99% ; ad5 11/22 00:20 BP 114 / 71; Pulse 80; Resp 16; Pulse Ox 99% on R/A; Pain 6/10; ad5 11/21 21:24 Body Mass Index 23.03 (58.97 kg, 160.02 cm) ca1 MDM: 11/21 22:42 Patient medically screened. [facility] 23:34 Differential diagnosis: Dementia, paralysis, metabolic disorder, drug effects, seizure. [facility] 11/22 00:30 Data reviewed: vital signs, nurses notes. Counseling: I had a detailed discussion with ma2 the patient and/or guardian regarding: the historical points, exam findings, and any diagnostic results supporting the discharge/admit diagnosis, the presence of at least one elevated blood pressure reading (>120/80) during this emergency department visit, the need for outpatient follow up. Response to treatment: the patient's symptoms have markedly improved after treatment. 11/21 22:55 Order name: Magnesium; Complete Time: 00:30 ma2 11/21 22:55 Order name: Troponin (emerg Dept Use Only); Complete Time: 00:30 ma2 11/21 22:55 Order name: Basic Metabolic Panel; Complete Time: 00:30 ma2 11/21 22:55 Order name: CBC with Diff; Complete Time: 00:30 ma2 11/21 22:55 Order name: Protime (+inr); Complete Time: 00:30 ma2 11/21 22:55 Order name: Ptt, Activated; Complete Time: 00:30 ma2 11/21 22:55 Order name: CT Stroke Brain w/o Contrast [facility] 11/21 22:55 Order name: Stroke CXR 1 View wa2 11/21 22:55 Order name: Lumbar Spine (3 Views) XRAY wa2 11/21 22:55 Order name: Accucheck; Complete Time: 00:37 ma2 11/21 22:55 Order name: Cardiac monitoring; Complete Time: 23:24 ma2 11/21 22:55 Order name: EKG - Nurse/Tech; Complete Time: 23:24 ma2 11/21 22:55 Order name: IV Saline Lock; Complete Time: 23:24 ma2 11/21 22:55 Order name: Labs collected and sent; Complete Time: 23:24 ma2 11/21 22:55 Order name: NPO; Complete Time: 23:24 ma2 11/21 22:55 Order name: O2 Per Protocol; Complete Time: 00:38 ma2 11/21 22:55 Order name: O2 Sat Monitoring; Complete Time: 23:24 ma2 11/21 22:55 Order name: Stroke Swallow Screen; Complete Time: 00:38 ma2 Administered Medications: 11/21 23:10 Drug: NS 0.9% 1000 ml Route: IV; Rate: 1 bolus; Site: right forearm; ad5 11/22 00:30 Follow up: IV Status: Completed infusion; IV Intake: 1000ml ad5 11/21 23:12 Drug: TORadol (ketorolac) 30 mg Route: IVP; Site: right forearm; ad5 23:35 Follow up: Response: No adverse reaction ad5 23:15 Drug: Keppra (levETIRAcetam) 1000 mg Route: IV; Rate: calculated rate; Site: right ad5 forearm; 23:15 Follow up: IV Status: Completed infusion; IV Intake: 100ml ad5 23:33 Drug: morphine 4 mg {Note: RASS 0.} Route: IVP; Site: right forearm; ad5 11/22 00:30 Follow up: Response: No adverse reaction; RASS: Alert and Calm (0) ad5 11/21 23:33 Drug: Zofran (Ondansetron) 4 mg Route: IVP; Site: right forearm; ad5 11/22 00:30 Follow up: Response: No adverse reaction ad5 Disposition: 11/22/20 00:31 Discharged to Home. Impression: Epilepsy and recurrent seizures. - Condition is Stable. - Discharge Instructions: Seizure, Adult. - Prescriptions for Diclofenac Sodium 75 mg Oral Tablet Sustained Release - take 1 tablet by ORAL route 2 times per day; 30 tablet. - Medication Reconciliation Form, Thank You Letter, Antibiotic Education, Prescription Opioid Use form. - Follow up: Private Physician; When: Tomorrow; Reason: If symptoms return, Continuance of care. Signatures: Dispatcher [employer] EDMS Darrick Coughlin MD MD ma2 Cheryl Gonzalez RN RN ca1 Davidson, Andrea ad5 Corrections: (The following items were deleted from the chart) 00:37 11/21 22:55 Urine Dipstick-Ancillary ordered. erick vega 11/22 00:57 00:31 11/22/2020 00:31 Discharged to Home. Impression: Epilepsy and recurrent seizures. ad5 Condition is Stable. Prescriptions for Diclofenac Sodium 75 mg Oral Tablet Sustained Release - take 1 tablet by ORAL route 2 times per day; 30 tablet. and Forms are Medication Reconciliation Form, Thank You Letter, Antibiotic Education, Prescription Opioid Use. Follow up: Private Physician; When: Tomorrow; Reason: If symptoms return, Continuance of care. erick
[2020-11-22 01:49] VITALS: TEMP 98.5
[2020-11-22 01:52] VITALS: O2SAT 99
[2020-11-22 01:54] VITALS: BP 114/71
--- NOTE | 2020-11-22 09:00 | RAD REPORT ---
EXAM DESCRIPTION: RAD - Chest Single View - 11/22/2020 12:15 am CLINICAL HISTORY: CHEST PAIN Chest pain. COMPARISON: Chest Single View dated 08/06/2020; Chest Single View dated 06/22/2020; Chest Single View dated 05/15/2020; Chest Single View dated 10/12/2019 FINDINGS: Portable technique limits examination quality. The lungs are grossly clear. The heart is normal in size. No displaced fractures.Cervical hardware pl ate. IMPRESSION: No acute intrathoracic process suspected.
--- NOTE | 2020-11-22 09:01 | RAD REPORT ---
EXAM DESCRIPTION: RAD - Lumbar Spine 3 Views - 11/22/2020 12:16 am CLINICAL HISTORY: PAIN Radiculopathy COMPARISON: Lumbar Spine 3 Views dated 03/23/2019; Lumbar Spine 3 Views dated 01/08/2018; LUMBAR SPINE 3 VIEWS dated 04/06/1998 FINDINGS: Vertebral body heights appear maintained. No compression fracture noted. Significant disc thinning with vacuum disc degeneration is present at L4-5. No spondylolysis or spondylolisthesis. Aor tic atherosclerosis. Cholelithiasis. IMPRESSION: No acute lumbar spine abnormality. Significant L4-5 degenerative spondylosis.
--- NOTE | 2020-11-22 11:44 | RAD REPORT ---
EXAM DESCRIPTION: ADDENDUM #1 THIS REPORT CONTAINS FINDINGS THAT MAY BE CRITICAL TO PATIENT CARE: The findings were verbally deliv ered to Dr. Darrick Coughlin on 11/22/2020 12:05 AM CDT. The results were acknowledged and understood. Electronically signed by: Komal Evans MD 11/22/2020 12:07 AM CDT End of Addendum EXAM DESCRIPTION: Ct Stroke Brain Wo Cont. RadLex: CT HEAD WITHOUT IV CONTRAST CLINICAL HISTORY: CONFUSED. TECHNIQUE: Axial, coronal, and sagittal images through the brain were performed in the absence of in travenous contrast. This exam was performed according to our departmental dose-optimization program w hich includes use of Automated Exposure Control, adjustment of the mA and/or kV according to patient size and/or use of iterative reconstruction technique. COMPARISON: None. FINDINGS: The brain parenchyma appears unremarkable. There is no intra-axial or extra-axial bleed seen. There i s no mass or mass effect. The ventricles are normal in size shape and configuration. The orbital cont ents appear unremarkable. The visualized paranasal sinuses and mastoid air cells are patent. No fracture is identified. IMPRESSION: No acute intracranial abnormality identified. Electronically signed by: Komal Evans MD 11/21/2020 11:42 PM CDT ADDENDUM #1 THIS REPORT CONTAINS FINDINGS THAT MAY BE CRITICAL TO PATIENT CARE: The findings were verbally deliv ered to Dr. Darrick Coughlin on 11/22/2020 12:05 AM CDT. The results were acknowledged and understood. Electronically signed by: Komal Evans MD 11/22/2020 12:07 AM CDT End of Addendum ADDENDUM #1 THIS REPORT CONTAINS FINDINGS THAT MAY BE CRITICAL TO PATIENT CARE: The findings were verbally deliv ered to Dr. Darrick Coughlin on 11/22/2020 12:05 AM CDT. The results were acknowledged and understood. Electronically signed by: Komal Evans MD 11/22/2020 12:07 AM CDT End of Addendum EXAM DESCRIPTION: Ct Stroke Brain Wo Cont. RadLex: CT HEAD WITHOUT IV CONTRAST CLINICAL HISTORY: CONFUSED. TECHNIQUE: Axial, coronal, and sagittal images through the brain were performed in the absence of in travenous contrast. This exam was performed according to our departmental dose-optimization program w hich includes use of Automated Exposure Control, adjustment of the mA and/or kV according to patient size and/or use of iterative reconstruction technique. COMPARISON: None. FINDINGS: The brain parenchyma appears unremarkable. There is no intra-axial or extra-axial bleed se en. There is no mass or mass effect. The ventricles are normal in size shape and configuration. The o rbital contents appear unremarkable. The visualized paranasal sinuses and mastoid air cells are patent. No fracture is identified. IMPRESSION: No acute intracranial abnormality identified. Electronically signed by: Komal Evans MD 11/21/2020 11:42 PM CDT Due to temporary technical issues with the PACS/Fluency reporting system, reports are being signed by the in house radiologist without review as a courtesy to ensure prompt reporting. The interpreting r adiologist is fully responsible for the content of the report.
== END 2020-11-22 00:57 | disposition home or self-care (01) ==
LOC: ER 20:59
DX: G40.802 Other epilepsy, not intractable, without status epilepticus (principal); I10 Essential (primary) hypertension; I25.2 Old myocardial infarction; F17.210 Nicotine dependence, cigarettes, uncomplicated; Z88.5 Allergy status to narcotic agent; Z91.018 Allergy to other foods
CPT/HCPCS: 96361; 85025; 80048; 36415; 83735; 85610; 85730; 84484; 70450; 71045; 72100; 96375; 96374; 99284; J1953; J7030; J2405

== ENCOUNTER 2021-01-15 21:16 | Emergency (ER) | payer OTHER ==
--- OUTSIDE RECORDS SUMMARY | 2021-01-15 21:19 | XMS REPORT | Continuity of Care Document ---
:1970 Author Organization [facility] t Address [address] [place] [address] Care Team Providers Name Role Phone Dima [...] Department ID 2019-03-09 2019-03-09 LEIGH Zimmerman [id number] 00:00:00 00:00:00 Yehuda Harrell [id number] [place] [id number] Professio [phone] nal [id number] Building Results This patient has no known results.
[2021-01-15] MEDS ORDERED: NA CHLORIDE 0.9% 1,000 ML ONE (21:44)
[2021-01-15 21:51] LABS: Absolute Lymphocytes (CBC) 2.8 K/uL (0.7-4.9); Basophils % 0.6 % (0-1.3); Hematocrit 40.8 % (36.0-45.0); Lymphocytes % 17.8 % (15.3-44.8); MPV 6.6 fL (7.6-11.3); RBC Red Blood Cell Count 5.12 M/uL (3.86-4.86)
[2021-01-15 21:54] LABS: Protime INR 0.99
[2021-01-15 22:16] LABS: ALT/SGPT 14 U/L (12-78); AST/SGOT 11 U/L (15-37); Alkaline Phosphatase 72 U/L (45-117); BUN Blood Urea Nitrogen 10 mg/dL (7-18); Bicarbonate 25 mmol/L (21-32); Bilirubin Direct < 0.1 mg/dL (0-0.2); Bilirubin Total 0.3 mg/dL (0.2-1.0); Glucose Level 91 mg/dL (74-106); Potassium 3.7 mmol/L (3.5-5.1); Sodium Level 135 mmol/L (136-145)
[2021-01-15] MEDS ORDERED: NA CHLORIDE 0.9% 100 ML ONE (22:35)
[2021-01-15] MEDS ORDERED: LEVETIRACETAM 500 MG/5 ML VIAL IV ONE (22:35)
[2021-01-15] MEDS ORDERED: METOCLOPRAMIDE 10 MG/2mL INJ ONE (22:35)
[2021-01-15] MEDS ORDERED: KETOROLAC 30 MG/ML INJ ONE (22:35)
[2021-01-15 23:17] LABS: Urine Blood Trace-lysed (Negative); Urine Glucose Negative (Negative); Urine Protein Negative (Negative); Urine pH 6.5 (5.0-7.0)
--- NOTE | 2021-01-15 23:17 | ER ---
Nurse's Notes [facility] Name: Heather Coon Age: 51 yrs Sex: Female : 1970 Arrival Date: 01/15/2021 Time: 21:17 Bed 5 Private MD: Diagnosis: Other seizures Presentation: 01/15 21:20 Chief complaint: EMS states: they were toned out for report of pt with headache x 5 bb days, 3 seizures and fall injury. Coronavirus screen: At this time, the client does not indicate any symptoms associated with coronavirus-19. Ebola Screen: No symptoms or risks identified at this time. Initial Sepsis Screen: Does the patient meet any 2 criteria? No. Patient's initial sepsis screen is negative. Does the patient have a suspected source of infection? No. Patient's initial sepsis screen is negative. Risk Assessment: Do you want to hurt yourself or someone else? Patient reports no desire to harm self or others. Onset of symptoms was January 10, 2021. 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 - Social history:: Smoking status: Patient reports the use of cigarette tobacco products, smokes one pack cigarettes per day. Patient uses alcohol, occasionally. street drugs, marijuana. - Family history:: not pertinent. Screenin:30 Abuse screen: Denies threats or abuse. Nutritional screening: No deficits noted. bb Tuberculosis screening: No symptoms or risk factors identified. Fall Risk None identified. Assessment: 21:30 General: Appears uncomfortable, Behavior is cooperative, anxious. Pain: Complains of bb pain in head Pain currently is 10 out of 10 on a pain scale. Neuro: Level of Consciousness is awake, alert, obeys commands, Oriented to person, place, time, situation. Cardiovascular: Capillary refill < 3 seconds Patient's skin is warm and dry. Respiratory: Respiratory effort is even, unlabored, Respiratory pattern is regular. GI: No signs and/or symptoms were reported involving the gastrointestinal system. Derm: Skin is pink, warm \T\ dry. Musculoskeletal: Circulation, motion, and sensation intact. 22:32 Reassessment: No changes from previously documented assessment. IV site intact, fluids bb infusing, family at bedside, awaiting diagnostic results. 23:23 Reassessment: Patient and/or family updated on plan of care and expected duration. Pain bb level reassessed. Patient is alert, oriented x 3, equal unlabored respirations, skin warm/dry/pink. Dr Coughlin notified pt still having painful headache new orders received pt medicated see SEP. 01/16 00:00 Reassessment: Patient and/or family updated on plan of care and expected duration. Pain bb level reassessed. Patient is alert, oriented x 3, equal unlabored respirations, skin warm/dry/pink. pt verbalized understanding of and agrees to plan of care discharge instructions given pt assisted to exit via wheelchair accompanied by family Patient states feeling better. Patient states symptoms have improved. Vital Signs: 01/15 21:20 BP 169 / 101; Pulse 102; Resp 18 S; Temp 98.4(O); Pulse Ox 99% on R/A; Weight 68.04 kg bb (R); Height 5 ft. 3 in. (160.02 cm) (R); Pain 10/10; 22:29 BP 164 / 95; Pulse 92; Resp 18 S; Pulse Ox 98% on R/A; bb 23:23 BP 155 / 86; Pulse 101; Resp 18 S; Pulse Ox 97% on R/A; bb 23:25 BP 155 / 86; Pulse 85; Resp 18; Pulse Ox 95% on R/A; ea 01/16 00:01 BP 151 / 103; Pulse 107; Resp 16 S; Pulse Ox 96% on R/A; Pain 5/10; bb 01/15 21:20 Body Mass Index 26.57 (68.04 kg, 160.02 cm) bb [place] Coma Score: 01/15 22:26 Eye Response: spontaneous(4). Verbal Response: oriented(5). Motor Response: obeys bb commands(6). Total: 15. ED Course: 21:17 Patient arrived in ED. cf2 21:20 Darrick Coughlin MD is Attending Physician. ma2 21:20 Initial lab(s) drawn, by me, sent to lab. Inserted saline lock: 18 gauge in right jb4 forearm, using aseptic technique. Blood collected. 21:20 Arm band placed on Patient placed in an exam room, on a stretcher, on pulse oximetry. bb 21:30 Patient has correct armband on for positive identification. Placed in gown. Bed in low bb position. Call light in reach. Side rails up X2. Pulse ox on. NIBP on. 21:35 CT Head Brain wo Cont In Process Unspecified. EDMS 22:26 Triage completed. bb 23:00 Lisa Kauffman, BETH is Primary Nurse. bb 23:26 No provider procedures requiring assistance completed. ea 01/16 00:00 IV discontinued, intact, bleeding controlled, No redness/swelling at site. Pressure bb dressing applied. Administered Medications: 01/15 21:45 Drug: NS 0.9% 1000 ml Route: IV; Rate: 1 bolus; Site: right forearm; bb 23:04 Follow up: IV Status: Completed infusion; IV Intake: 1000ml bb 22:19 Drug: TORadol (ketorolac) 30 mg Route: IVP; Site: right forearm; bb 23:00 Follow up: Response: No adverse reaction; Pain is unchanged, physician notified bb 22:20 Drug: Reglan (metoCLOPramide) 20 mg Route: IVP; Site: right forearm; bb 23:00 Follow up: Response: No adverse reaction bb 22:23 Drug: Keppra (levETIRAcetam) 1000 mg Route: IV; Rate: calculated rate; Site: right bb forearm; 23:00 Follow up: IV Status: Completed infusion; IV Intake: 100ml bb 23:23 Drug: Dilaudid (HYDROmorphone) 1 mg Route: IVP; Site: right forearm; bb 23:59 Follow up: Response: No adverse reaction; Marked relief of symptoms; Pain is decreased; bb RASS: Alert and Calm (0) Intake: 23:00 IV: 100ml; Total: 100ml. bb 23:04 IV: 1000ml; Total: 1100ml. bb Outcome: 23:16 Discharge ordered by . ma2 01/16 00:01 Discharged to home via wheelchair, with family. bb Condition: stable Discharge instructions given to patient, Instructed on discharge instructions, follow up and referral plans. Demonstrated understanding of instructions, follow-up care. 00:01 Patient left the ED. bb Signatures: Dispatcher [employer] EDLisa Shin RN RN bb Bryson, James, RN RN jb4 Liza Palmer RN RN ea Alzahri, Mohammad, MD MD ma2 Jerry Bernstein 2
--- NOTE | 2021-01-15 23:17 | EDPHYS ---
Physician Documentation [facility] Name: Heather Coon Age: 51 yrs Sex: Female : 1970 Arrival Date: 01/15/2021 Time: 21:17 Bed 5 Private MD: ED Physician Darrick Coughlin HPI: 01/15 22:43 This 51 yrs old Female presents to ER via EMS with complaints of Seizure. ma2 22:43 The patient presents after having a single isolated seizure. Seizure onset: this ma2 morning. Seizure Hx: Usual frequency:. Associated injury: The patient did not suffer any apparent associated injury. Current symptoms: Currently, the patient is not experiencing any symptoms. The patient has experienced similar episodes in the past. 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 - Social history:: Smoking status: Patient reports the use of cigarette tobacco products, smokes one pack cigarettes per day. Patient uses alcohol, occasionally. street drugs, marijuana. - Family history:: not pertinent. ROS: 22:43 Constitutional: Negative for fever, chills, and weight loss. ma2 22:43 All other systems are negative. Exam: 22:43 Constitutional: This is a well developed, well nourished patient who is awake, alert, ma2 and in no acute distress. Head/Face: Normocephalic, atraumatic. Eyes: Pupils equal round and reactive to light, extra-ocular motions intact. Lids and lashes normal. Conjunctiva and sclera are non-icteric and not injected. Cornea within normal limits. Periorbital areas with no swelling, redness, or edema. Neck: Trachea midline, no thyromegaly or masses palpated, and no cervical lymphadenopathy. Supple, full range of motion without nuchal rigidity, or vertebral point tenderness. No Meningismus. Chest/axilla: Normal chest wall appearance and motion. Nontender with no deformity. No lesions are appreciated. Cardiovascular: Regular rate and rhythm with a normal S1 and S2. No gallops, murmurs, or rubs. Normal PMI, no JVD. No pulse deficits. Respiratory: Lungs have equal breath sounds bilaterally, clear to auscultation and percussion. No rales, rhonchi or wheezes noted. No increased work of breathing, no retractions or nasal flaring. Abdomen/GI: Soft, non-tender, with normal bowel sounds. No distension or tympany. No guarding or rebound. No evidence of tenderness throughout. Back: No spinal tenderness. No costovertebral tenderness. Full range of motion. Skin: Warm, dry with normal turgor. Normal color with no rashes, no lesions, and no evidence of cellulitis. MS/ Extremity: Pulses equal, no cyanosis. Neurovascular intact. Full, normal range of motion. Neuro: Awake and alert, GCS 15, oriented to person, place, time, and situation. Cranial nerves II-XII grossly intact. Motor strength 5/5 in all extremities. Sensory grossly intact. Cerebellar exam normal. Normal gait. Vital Signs: 21:20 BP 169 / 101; Pulse 102; Resp 18 S; Temp 98.4(O); Pulse Ox 99% on R/A; Weight 68.04 kg bb (R); Height 5 ft. 3 in. (160.02 cm) (R); Pain 10/10; 22:29 BP 164 / 95; Pulse 92; Resp 18 S; Pulse Ox 98% on R/A; bb 23:23 BP 155 / 86; Pulse 101; Resp 18 S; Pulse Ox 97% on R/A; bb 23:25 BP 155 / 86; Pulse 85; Resp 18; Pulse Ox 95% on R/A; ea 01/16 00:01 BP 151 / 103; Pulse 107; Resp 16 S; Pulse Ox 96% on R/A; Pain 5/10; bb 01/15 21:20 Body Mass Index 26.57 (68.04 kg, 160.02 cm) bb Wallace Coma Score: 01/15 22:26 Eye Response: spontaneous(4). Verbal Response: oriented(5). Motor Response: obeys bb commands(6). Total: 15. MDM: 21:20 Patient medically screened. edin2 22:43 Differential diagnosis: drug overdose, cardiac arrhythmia, seizure. [facility] 23:16 Data reviewed: vital signs, nurses notes. Counseling: I had a detailed discussion with [facility] the patient and/or guardian regarding: the historical points, exam findings, and any diagnostic results supporting the discharge/admit diagnosis, the presence of at least one elevated blood pressure reading (>120/80) during this emergency department visit, the need for outpatient follow up. Response to treatment: the patient's symptoms have markedly improved after treatment. 01/15 21:21 Order name: Acetaminophen [facility] 01/15 21:21 Order name: Basic Metabolic Panel [facility] 01/15 21:21 Order name: CBC with Diff [facility] 01/15 21:21 Order name: ETOH Level; Complete Time: 22:47 [facility] 01/15 21:21 Order name: Hepatic Function; Complete Time: 22:47 [facility] 01/15 21:21 Order name: PT-INR; Complete Time: 22:47 [facility] 01/15 21:21 Order name: Ptt, Activated; Complete Time: 22:47 [facility] 01/15 21:21 Order name: Salicylate; Complete Time: 22:47 [facility] 01/15 21:21 Order name: Acetaminophen Level; Complete Time: 22:47 [facility] 01/15 21:21 Order name: Basic Metabolic Panel; Complete Time: 22:47 [facility] 01/15 21:21 Order name: CBC with Automated Diff; Complete Time: 22:47 [facility] 01/15 23:16 Order name: Urine Dipstick-Ancillary; Complete Time: 23:18 [facility] 01/15 23:19 Order name: Urine --Ancillary (enter results) 01/15 21:21 Order name: EKG; Complete Time: 21:21 [facility] 01/15 21:21 Order name: EKG - Nurse/Tech; Complete Time: 21:49 [facility] 01/15 21:21 Order name: IV Saline Lock; Complete Time: 21:49 [facility] 01/15 21:21 Order name: Labs collected and sent; Complete Time: 21:49 [facility] 01/15 21:21 Order name: Suicide Screening ([place]); Complete Time: 21:49 [facility] 01/15 21:21 Order name: Urine Dipstick-Ancillary (obtain specimen); Complete Time: 23:15 [facility] 01/15 21:21 Order name: Urine Test (obtain specimen); Complete Time: 23:15 ak2 01/15 21:21 Order name: CT Head Brain wo Cont ma2 Administered Medications: 21:45 Drug: NS 0.9% 1000 ml Route: IV; Rate: 1 bolus; Site: right forearm; bb 23:04 Follow up: IV Status: Completed infusion; IV Intake: 1000ml bb 22:19 Drug: TORadol (ketorolac) 30 mg Route: IVP; Site: right forearm; bb 23:00 Follow up: Response: No adverse reaction; Pain is unchanged, physician notified bb 22:20 Drug: Reglan (metoCLOPramide) 20 mg Route: IVP; Site: right forearm; bb 23:00 Follow up: Response: No adverse reaction bb 22:23 Drug: Keppra (levETIRAcetam) 1000 mg Route: IV; Rate: calculated rate; Site: right bb forearm; 23:00 Follow up: IV Status: Completed infusion; IV Intake: 100ml bb 23:23 Drug: Dilaudid (HYDROmorphone) 1 mg Route: IVP; Site: right forearm; bb 23:59 Follow up: Response: No adverse reaction; Marked relief of symptoms; Pain is decreased; bb RASS: Alert and Calm (0) Disposition Summary: 01/15/21 23:16 Discharge Ordered Location: Home ma2 Condition: Stable ma2 Diagnosis - Other seizures ma2 Followup: ma2 - With: Private Physician - When: Tomorrow - Reason: Wound Recheck, If symptoms return Discharge Instructions: - Discharge Summary Sheet ma2 - Seizure, Adult ma2 Forms: - Medication Reconciliation Form ma2 - Thank You Letter ma2 - Antibiotic Education ma2 - Prescription Opioid Use ma2 Signatures: Dispatcher [employer] Lisa Gaona RN RN bb Alzahri, Mohammad, MD MD ma2
[2021-01-15] MEDS ORDERED: HYDROMORPHONE HCL 1 MG/ML INJ ONE (23:36)
[2021-01-16 00:40] VITALS: TEMP 98.4
[2021-01-16 00:47] VITALS: BP 151/103; O2SAT 96
--- NOTE | 2021-01-16 13:03 | RAD REPORT ---
EXAM DESCRIPTION: CT - Head Brain Wo Cont - 01/16/2021 6:32 am CLINICAL HISTORY: Seizure. COMPARISON: None. TECHNIQUE: Axial unenhanced CT imaging of the brain. Reformatted coronal and sagittal images obtaine d. This examination was performed according to our departmental dose optimization program, which include s automated exposure control, adjustment of the mA and/or kV according to patient size and/or use of iterative reconstruction technique. FINDINGS: The ventricles are normal in size and contour. Extra-axial fluid spaces are normal. Morton-w moisés matter differentiation is preserved. There is no intracranial bleed, mass or midline shift. No e vidence of acute large territorial infarction or hyperdense vessel. No edema. Normal cerebellum and v ermis. Fourth ventricle is midline. Prepontine cisterns are not effaced. Normal sella contents. Intraorbital contents are unremarkable. There is mild debris within the left maxillary antrum. Mastoi d air cells are clear. Imaged facial bones are intact. Skull base and calvarium are intact. Normal sc alp soft tissues. IMPRESSION: 1. No intracranial acute finding. 2. Mild left maxillary sinus disease. Electronically signed by: Natividad Morgan DO 01/15/2021 9:54 PM CDT Due to temporary technical issues with the PACS/Fluency reporting system, reports are being signed by the in house radiologists without review as a courtesy to insure prompt reporting. The interpreting radiologist is fully responsible for the content of the report.
--- NOTE | 2021-01-16 16:34 | EKG ---
Test Date: 2021-01-15 Test Time: 21:43:47 Aircraft Designer: TODD MEASUREMENT RESULTS: Intervals: Rate: 93 [place]: 142 QRSD: 88 QT: 380 QTc: 472 Melvin: P: 70 [place]: 142 QRS: 135 T: 44 INTERPRETIVE STATEMENTS: Normal sinus rhythm with sinus arrhythmia Possible Left atrial enlargement Right axis deviation Pulmonary disease pattern Abnormal ECG Compared to ECG 09/13/2020 13:08:43 No significant changes Electronically Signed On 01-16-21 16:33:02 CDT by Migel Warren
== END 2021-01-16 00:01 | disposition home or self-care (01) ==
LOC: ER 21:16
DX: G40.909 Epilepsy, unspecified, not intractable, without status epilepticus (principal); F17.210 Nicotine dependence, cigarettes, uncomplicated; Z88.5 Allergy status to narcotic agent; Z91.018 Allergy to other foods
CPT/HCPCS: 96365; 96361; 93005; 85025; 80048; 36415; 80320; 80329 ×2; 81025; 85610; 80076; 85730; 81003; 70450; 96375; 99284; J2765; J1953; J1170; J7030

== ENCOUNTER 2021-02-12 19:40 | Emergency (ER) | payer OTHER ==
--- OUTSIDE RECORDS SUMMARY | 2021-02-12 19:42 | XMS REPORT | Continuity of Care Document ---
:1970 Author Organization [facility] t Address [address] [place] [address] Care Team Providers Name Role Phone Dima [...] Department ID 2019-03-09 2019-03-09 LEIGH Zimmerman [id number] 00:00:00 00:00:00 Yehuda Harrell [id number] [place] [id number] Professio [phone] nal 092 Building Results This patient has no known results.
[2021-02-12 19:58] LABS: Absolute Lymphocytes (CBC) 3.3 K/uL (0.7-4.9); Basophils % 1.5 % (0-1.3); Hematocrit 34.3 % (36.0-45.0); Lymphocytes % 33.7 % (15.3-44.8); MPV 6.2 fL (7.6-11.3); RBC Red Blood Cell Count 4.35 M/uL (3.86-4.86)
[2021-02-12 20:10] LABS: Protime INR 1.06
[2021-02-12] MEDS ORDERED: NA CHLORIDE 0.9% 1,000 ML ONE (20:14)
[2021-02-12] MEDS ORDERED: ACETAMINOPHEN 500 MG TAB ONE (20:14)
[2021-02-12 20:26] LABS: ALT/SGPT 18 U/L (12-78); AST/SGOT 12 U/L (15-37); Albumin 3.2 g/dL (3.4-5.0); Alkaline Phosphatase 63 U/L (45-117); BUN Blood Urea Nitrogen 12 mg/dL (7-18); Bicarbonate 25 mmol/L (21-32); Bilirubin Direct < 0.1 mg/dL (0-0.2); Bilirubin Total 0.3 mg/dL (0.2-1.0); Glucose Level 78 mg/dL (74-106); Potassium 3.3 mmol/L (3.5-5.1); Protein, Total 6.9 g/dL (6.4-8.2); Sodium Level 143 mmol/L (136-145)
[2021-02-12] MEDS ORDERED: MEPERIDINE HCL 25 MG/ML SYR ONE (20:54)
[2021-02-12] MEDS ORDERED: NA CHLORIDE 0.9% 100 ML ONE (20:54)
[2021-02-12] MEDS ORDERED: LEVETIRACETAM 500 MG/5 ML VIAL IV ONE (20:54)
[2021-02-12] MEDS ORDERED: ONDANSETRON 4 MG/2 ML VIAL ONE (20:54)
--- NOTE | 2021-02-12 21:52 | RAD REPORT ---
EXAM DESCRIPTION: RAD - Lumbar Spine 3 Views - 02/12/2021 9:21 pm CLINICAL HISTORY: PAIN Radiculopathy COMPARISON: Lumbar Spine 3 Views dated 11/21/2020; Lumbar Spine 3 Views dated 03/23/2019; Lumbar Spine 3 Views dated 01/08/2018; LUMBAR SPINE 3 VIEWS dated 04/06/1998 FINDINGS: Vertebral body heights appear maintained. No compression fracture noted. Prominent disc th inning is seen with vacuum disc degeneration at L3-4, L4-5. Mild degenerative retrolisthesis is seen of L5 on S1. Aortic atherosclerosis. Cholecystectomy clips. IMPRESSION: Moderately severe lower lumbar degenerative spondylosis.
--- NOTE | 2021-02-12 21:54 | RAD REPORT ---
EXAM DESCRIPTION: RAD - Hip Left 2 View - 02/12/2021 9:21 pm CLINICAL HISTORY: PAIN COMPARISON: No comparisons FINDINGS: Mild arthritic changes are present. No acute fracture, dislocation or AVN pattern observed .
--- NOTE | 2021-02-12 22:42 | ER ---
Nurse's Notes [facility] Name: Heather Coon Age: 51 yrs Sex: Female : 1970 Arrival Date: 02/12/2021 Time: 19:42 Bed 6 Private MD: Diagnosis: Other seizures Presentation: 02/12 19:55 Chief complaint: EMS states: Reports had a witnessed seizure per family. EMS reports ea one witnessed seizure en route. Pt received versed 5mg and lorazepam 2. Pt complaining of cough. Coronavirus screen: At this time, the client does not indicate any symptoms associated with coronavirus-19. Ebola Screen: No symptoms or risks identified at this time. Initial Sepsis Screen: Does the patient meet any 2 criteria? No. Patient's initial sepsis screen is negative. Does the patient have a suspected source of infection? No. Patient's initial sepsis screen is negative. Risk Assessment: Do you want to hurt yourself or someone else? Patient reports no desire to harm self or others. Onset of symptoms was February 12, 2021. 19:55 Method Of Arrival: EMS: [facility] ea 19:55 Acuity: ANDER 3 ea Historical: - Allergies: 20:08 Green Tea; ea 20:08 Prozac; ea - PMHx: 20:08 stroke; Spastic Muscles; pt reports hx of seizures; Myocardial infarction; intestinal ea mass; Hypertension; Herniated Back Disc; Diverticulitis; Depression; Chronic pain; Bipolar disorder; Anxiety; - PSHx: 20:08 Cholecystectomy; ea - Immunization history:: Adult Immunizations up to date. - Social history:: Smoking status: Patient denies any tobacco usage or history of. - Family history:: not pertinent. Screenin:48 Abuse screen: Denies threats or abuse. Nutritional screening: No deficits noted. ea Tuberculosis screening: No symptoms or risk factors identified. Fall Risk None identified. Assessment: 19:50 General: Appears in no apparent distress. Behavior is calm, cooperative, appropriate ea for age. Pain: Complains of pain in hip pain. Neuro: Level of Consciousness is awake, alert, obeys commands, Oriented to person, place, time. Respiratory: Airway is patent Respiratory effort is even, unlabored, Respiratory pattern is regular, symmetrical. Derm: Skin is pink, warm \T\ dry. 20:46 Reassessment: Patient and/or family updated on plan of care and expected duration. Pain ea level reassessed. Patient is alert, oriented x 3, equal unlabored respirations, skin warm/dry/pink. 21:49 Reassessment: Patient and/or family updated on plan of care and expected duration. Pain ea level reassessed. Patient is alert, oriented x 3, equal unlabored respirations, skin warm/dry/pink. 23:27 Reassessment: Patient and/or family updated on plan of care and expected duration. Pain ea level reassessed. Patient is alert, oriented x 3, equal unlabored respirations, skin warm/dry/pink. Discharge instruction given to patient verbalized the understanding of instruction. Pt left ED tolerating well. Vital Signs: 19:55 BP 140 / 89; Pulse 102; Resp 16; Temp 99.8; Pulse Ox 96% ; Weight 58.97 kg; Height 5 ea ft. 3 in. (160.02 cm); 20:47 BP 118 / 86; Pulse 90; Resp 20; Pulse Ox 94% ; ea 21:49 BP 128 / 85; Pulse 81; Resp 20; Pulse Ox 93% ; ea 23:13 BP 135 / 62; Pulse 78; Resp 18; Temp 98.6; Pulse Ox 99% ; ea 19:55 Body Mass Index 23.03 (58.97 kg, 160.02 cm) ea ED Course: 19:42 Patient arrived in ED. mw2 19:48 Liza Palmer, RN is Primary Nurse. ea 19:48 Patient has correct armband on for positive identification. Bed in low position. Call ea light in reach. Side rails up X2. 19:49 Arm band placed on right wrist. Patient placed in an exam room, on a stretcher, on ea corporation pilot. 20:05 Darrick Coughlin MD is Attending Physician. ma2 20:08 Triage completed. ea 20:48 Maintain EMS IV. Dressing intact. Good blood return noted. Site clean \T\ dry. Gauge \T\ ea site: 18G left FA. 21:21 Lumbar Spine (3 Views) XRAY In Process Unspecified. EDMS 21:21 Hip Left 2 View XRAY In Process Unspecified. EDMS 23:29 No provider procedures requiring assistance completed. IV discontinued, intact, ea bleeding controlled, No redness/swelling at site. Pressure dressing applied. Administered Medications: 19:55 Not Given (Patient Refused): Tylenol 1000 mg PO once ea 19:55 Drug: NS 0.9% 1000 ml Route: IV; Rate: 1 bolus; Site: left forearm; ea 20:43 Drug: Demerol (meperidine) 25 mg Route: IVP; Site: left forearm; ea 21:50 Follow up: Response: No adverse reaction ea 20:44 Drug: Ibuprofen 600 mg Route: PO; ea 21:49 Follow up: Response: No adverse reaction ea 20:44 Drug: Keppra (levETIRAcetam) 1000 mg Route: IV; Rate: calculated rate; Site: left ea forearm; 20:44 Drug: Zofran (Ondansetron) 4 mg Route: IVP; Site: left forearm; ea 21:50 Follow up: Response: No adverse reaction ea Outcome: 22:41 Discharge ordered by MD. suarez 23:29 Discharged to home ambulatory. ea 23:29 Condition: stable 23:29 Discharge instructions given to patient, Instructed on discharge instructions, follow up and referral plans. Demonstrated understanding of instructions, follow-up care. 23:30 Patient left the ED. ea Signatures: Dispatcher [employer] Liza Torres RN RN ea Alzahri, Mohammad, MD MD ma2 Marlyn Marrero 2
--- NOTE | 2021-02-12 22:42 | EDPHYS ---
Physician Documentation [facility] Name: Heather Coon Age: 51 yrs Sex: Female : 1970 Arrival Date: 02/12/2021 Time: 19:42 Bed 6 Private MD: ED Physician Darrick Coughlin HPI: 02/12 20:50 This 51 yrs old Female presents to ER via EMS with complaints of seizure. ma2 20:50 Character of seizure(s): Loss of consciousness: the patient experienced loss of ma2 consciousness. Seizure onset: just prior to arrival. Seizure Hx: Seizure medications: Keppra. Associated injury: Left lower extremity:. Current symptoms: Currently, the patient is not experiencing any symptoms. The patient has experienced similar episodes in the past. Historical: - Allergies: 20:08 Green Tea; ea 20:08 Prozac; ea - PMHx: 20:08 stroke; Spastic Muscles; pt reports hx of seizures; Myocardial infarction; intestinal ea mass; Hypertension; Herniated Back Disc; Diverticulitis; Depression; Chronic pain; Bipolar disorder; Anxiety; - PSHx: 20:08 Cholecystectomy; ea - Immunization history:: Adult Immunizations up to date. - Social history:: Smoking status: Patient denies any tobacco usage or history of. - Family history:: not pertinent. ROS: 20:50 Constitutional: Negative for fever, chills, and weight loss. ma2 20:50 All other systems are negative. Exam: 20:50 Constitutional: This is a well developed, well nourished patient who is awake, alert, ma2 and in no acute distress. Head/Face: Normocephalic, atraumatic. Eyes: Pupils equal round and reactive to light, extra-ocular motions intact. Lids and lashes normal. Conjunctiva and sclera are non-icteric and not injected. Cornea within normal limits. Periorbital areas with no swelling, redness, or edema. ENT: Nares patent. No nasal discharge, no septal abnormalities noted. Tympanic membranes are normal and external auditory canals are clear. Oropharynx with no redness, swelling, or masses, exudates, or evidence of obstruction, uvula midline. Mucous membranes moist. Neck: Trachea midline, no thyromegaly or masses palpated, and no cervical lymphadenopathy. Supple, full range of motion without nuchal rigidity, or vertebral point tenderness. No Meningismus. Chest/axilla: Normal chest wall appearance and motion. Nontender with no deformity. No lesions are appreciated. Cardiovascular: Regular rate and rhythm with a normal S1 and S2. No gallops, murmurs, or rubs. Normal PMI, no JVD. No pulse deficits. Respiratory: Lungs have equal breath sounds bilaterally, clear to auscultation and percussion. No rales, rhonchi or wheezes noted. No increased work of breathing, no retractions or nasal flaring. Abdomen/GI: Soft, non-tender, with normal bowel sounds. No distension or tympany. No guarding or rebound. No evidence of tenderness throughout. Skin: Warm, dry with normal turgor. Normal color with no rashes, no lesions, and no evidence of cellulitis. MS/ Extremity: Pulses equal, no cyanosis. Neurovascular intact. Full, normal range of motion. Neuro: Awake and alert, GCS 15, oriented to person, place, time, and situation. Cranial nerves II-XII grossly intact. Motor strength 5/5 in all extremities. Sensory grossly intact. Cerebellar exam normal. Normal gait. Vital Signs: 19:55 BP 140 / 89; Pulse 102; Resp 16; Temp 99.8; Pulse Ox 96% ; Weight 58.97 kg; Height 5 ea ft. 3 in. (160.02 cm); 20:47 BP 118 / 86; Pulse 90; Resp 20; Pulse Ox 94% ; ea 21:49 BP 128 / 85; Pulse 81; Resp 20; Pulse Ox 93% ; ea 23:13 BP 135 / 62; Pulse 78; Resp 18; Temp 98.6; Pulse Ox 99% ; ea 19:55 Body Mass Index 23.03 (58.97 kg, 160.02 cm) ea MDM: 20:05 Patient medically screened. ma2 20:50 Differential diagnosis: drug overdose, seizure, . ma2 22:40 Data reviewed: vital signs, nurses notes. Counseling: I had a detailed discussion with ma2 the patient and/or guardian regarding: the historical points, exam findings, and any diagnostic results supporting the discharge/admit diagnosis, the presence of at least one elevated blood pressure reading (>120/80) during this emergency department visit. Response to treatment: the patient's symptoms have markedly improved after treatment. 02/12 19:49 Order name: Acetaminophen 02/12 19:49 Order name: Basic Metabolic Panel; Complete Time: 20:57 02/12 19:49 Order name: CBC with Diff; Complete Time: 20:06 02/12 19:49 Order name: ETOH Level; Complete Time: 20:57 02/12 19:49 Order name: Hepatic Function; Complete Time: 20:57 02/12 19:49 Order name: PT-INR; Complete Time: 20:57 02/12 19:49 Order name: Ptt, Activated; Complete Time: 20:57 02/12 19:49 Order name: Salicylate; Complete Time: 20:57 02/12 19:49 Order name: Acetaminophen Level; Complete Time: 20:57 EDMS 02/12 20:26 Order name: Lumbar Spine (3 Views) XRAY; Complete Time: 22:36 ma2 02/12 20:26 Order name: Hip Left 2 View XRAY; Complete Time: 22:36 [facility] 02/12 19:49 Order name: EKG; Complete Time: 19:50 02/12 19:49 Order name: EKG - Nurse/Tech; Complete Time: 20:01 02/12 19:49 Order name: IV Saline Lock; Complete Time: 20:11 02/12 19:49 Order name: Labs collected and sent; Complete Time: 20:11 ea Administered Medications: 19:55 Not Given (Patient Refused): Tylenol 1000 mg PO once ea 19:55 Drug: NS 0.9% 1000 ml Route: IV; Rate: 1 bolus; Site: left forearm; ea 20:43 Drug: Demerol (meperidine) 25 mg Route: IVP; Site: left forearm; ea 21:50 Follow up: Response: No adverse reaction ea 20:44 Drug: Ibuprofen 600 mg Route: PO; ea 21:49 Follow up: Response: No adverse reaction ea 20:44 Drug: Keppra (levETIRAcetam) 1000 mg Route: IV; Rate: calculated rate; Site: left ea forearm; 20:44 Drug: Zofran (Ondansetron) 4 mg Route: IVP; Site: left forearm; ea 21:50 Follow up: Response: No adverse reaction ea Disposition Summary: 02/12/21 22:41 Discharge Ordered Location: Home ma2 Condition: Stable ma2 Diagnosis - Other seizures ma2 Followup: ma2 - With: Private Physician - When: Tomorrow - Reason: Continuance of care Discharge Instructions: - Discharge Summary Sheet ma2 - Seizure, Adult ma2 Forms: - Medication Reconciliation Form ma2 - Thank You Letter ma2 - Antibiotic Education ma2 - Prescription Opioid Use ma2 Signatures: Dispatcher [employer] Liza Torres RN RN ea Alzahri, Mohammad, MD MD ma2
[2021-02-14 04:11] VITALS: BP 135/62; TEMP 98.6; O2SAT 99
--- NOTE | 2021-02-14 07:33 | EKG ---
Test Date: 2021-02-12 Test Time: 19:57:22 Map Drafter: CORONA MEASUREMENT RESULTS: Intervals: Rate: 92 [place]: 142 QRSD: 90 QT: 376 QTc: 464 [place]: P: 65 LA: 142 QRS: 93 T: 42 INTERPRETIVE STATEMENTS: Normal sinus rhythm Possible Left atrial enlargement Rightward axis Septal infarct, age undetermined Abnormal ECG Compared to ECG 01/15/2021 21:43:47 Myocardial infarct finding now present Sinus arrhythmia no longer present Electronically Signed On 02-14-21 07:28:53 CDT by Migel Warren
== END 2021-02-12 23:30 | disposition home or self-care (01) ==
LOC: ER 19:40
DX: R56.9 Unspecified convulsions (principal); Z86.73 Personal history of transient ischemic attack (TIA), and cerebral infarction without residual deficits; I25.2 Old myocardial infarction; I10 Essential (primary) hypertension; G89.29 Other chronic pain; F31.9 Bipolar disorder, unspecified; F41.9 Anxiety disorder, unspecified
CPT/HCPCS: 93005; 85025; 80048; 36415; 80320; 80329 ×2; 85610; 80076; 85730; 72100; 73502; J2175; J1953; J7030; J2405; 96374; 96375; 99284

== ENCOUNTER 2021-03-24 14:13 | Emergency (ER) | payer OTHER ==
--- OUTSIDE RECORDS SUMMARY | 2021-03-24 14:16 | XMS REPORT | Continuity of Care Document ---
:1970 Author Organization [facility] t Address [address] [place] [address] Care Team Providers Name Role Phone Pcp, Does Not Have A Primary Care Physician Brandy CAMPOS Attending Clinician Unavailable Palmer [employer]EF[employer] COORDINATOR Attending Clinician Deo [employer]ARM[employer] BENEFITS COORDINATOR Attending Clinician Unknown Attending Clinician Unavailable Isrrael ELIZONDO, Gene Attending Clinician Problems Condition Condition Condition Status Onset Resolution Last Treating Co mments Source Name Details Category Date Date Treatment Clinician Date Bilateral Bilateral Disease Active Uni vers acute acute 09-27 ity of otitis otitis 00:00: [place] media, media, 00 Medical recurrence recurrence Br anch not not specified, specified, unspecifie unspecifie d otitis d otitis media type media type Lumbar Lumbar Disease Active Univers spinal spinal 09-27 ity of stenosis stenosis 00:00: [place] 00 Medical Branch Right-side Right-side Disease Active U nivers d low back d low back 311 it y of pain with pain with 00:[place] sciatica, sciatic[place], 00 Medi kwame sciatica sciatica Branch laterality laterality unspecifie unspecifie d d Generalize Generalize Disease Active U nivers d anxiety d anxiety 09-27 ity of disorder disorder 00:00: [place] 00 Medical Branch Agoraphobi Agoraphobi Disease Active U nivers a a 3-11 ity of 00:00: Medical Branch Bipolar Bipolar Disease Active Univers disorder, disorder, 3 [place] of in partial [place] remission, remission, 00 Me dical most most Branch recent recent episode episode manic manic 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 3 it y of disorder disorder 00:00: Medical Branch Breast Breast Disease Active Univers mass, left mass, left 3 it y of 00:00: Medical Branch Anxiety Anxiety Disease Active Univers 3 ity of 00:00: Medical Branch Lower back Lower back Disease Active U nivers pain pain 3 ity of 00:00: Medical Branch High blood High blood Disease Active U nivers pressure pressure 3 ity of 00:00: Medical Branch COPD COPD Disease Active Univers (chronic (chronic 09-17 ity of obstructiv obstructiv [place] e [place] 00 Medical pulmonary pulmonary Bran ch disease) disease) Obesity Obesity Disease Active Univers 3 ity of 00:00: [facility] Allergies, Adverse Reactions, Alerts Allergy Allergy Status Severity Reaction(s) Onset Inactive Treating Comm ents Source Name Type Date Date Clinician Diclofen Propensi Active Hypertension Univers ac ty to 5-04 ity of adverse 00:00: [place] reaction Medical s Branch Green Propensi Active Other - See Seizures U nivers Tea ty to comments 1-22 ity of adverse 00:00: [place] reaction Medical s to Branch drug Fluoxeti Propensi Active Hives Univer s ne Hcl ty to 8-31 ity of adverse 00:00: [place] reaction 00 Medical s Branch Social History Social Habit Start Date Stop Date Quantity Comments Source History of tobacco Cigar Smoker Univ ersity of use [facility] Exposure to Not sure University of SARS-CoV-2 (event) [facility] Cigarettes smoked 2021-03-14 2021-03-14 Univers ity of current (pack per 00:00:00 00:00:00 ) - Reported Branch Cigarette 2021-03-14 2021-03-14 University of pack-years 00:00:00 00:00:00 [facility] Tobacco use and 2021-03-14 2021-03-14 Never used Universit y of exposure 00:00:00 00:00:00 [facility] Alcohol intake 2021-03-14 2021-03-14 Current University of 00:00:00 00:00:00 non-drinker of [facility] alcohol Branch (finding) Sex [birth year] Universit y of 00:00:00 00:00:00 [facility] Smoking Status Start Date Stop Date Source Current every day smoker 2021-03-14 00:00:00 Uni versity of [facility] Medications Ordered Filled Start Stop Current Ordering Indication Dosage Frequency Signature Comments Components Source Medication Medication Date Date Medication? Clinician (SIG) Name Name levoFLOXaci 2020- No 500mg 500 mg, U nivers n 03-17 Oral, ity of (LEVAQUIN) 04:00: 04:22 ONCE, 1 Javier as tablet 500 00 :00 dose, Sat Medi kwame mg 03/16/21 at Branch 2315, MICHAEL
Re ason for Anti-Infec tive: Documented Infection< br>Documen sherice Infection Site: Respirator y
Durat ion of Therapy: 7 days morpHINE 2020- No 4mg 4 mg, Slow Un lois injection 4 03-17 IV Push, ity of mg 01:58: 02:13 ONCE, 1 [place] 00 :00 dose, Sat Medical 03/16/21 at Branch 2100, STAT ondansetron 2020- No 4mg 4 mg, Slow Univers (ZOFRAN 03-17 IV Push, ity of (PF)) 01:58: 02:12 ONCE, 1 [place] injection 4 00 :00 dose, Sat Med ical mg 03/16/21 at Branch 2100, MICHAEL ipratropium 2020- No 3mL 3 mL, Univ ers -albuteroL 03-17 Inhalation it y of (DUONEB) 01:57: 02:15 , ONCE, 1 [place] as 0.5 mg-3 00 :00 dose, Sat Medica l mg(2.5 mg 03/16/21 at [facility])/3 mL 2100, MICHAEL nebulizer solution 3 mL NaCl 0.9% 2020- No 1000mL at 999 Uni vers (NS) IV 03-17 mL/hr, ity of infusion 01:57: 03:07 [place]venou [place] 1,000 mL 00 :00 s, ONCE, 1 Medic al dose, Sat Branch 03/16/21 at 2100, MICHAEL methylpredn 2020- No 125mg 125 mg, U nivers isolone sod 03-17 Slow IV ity of succ 01:57: 02:11 Push, [place] (SOLU-MEDRO 00 :00 ONCE, 1 Medic al L) dose, Sat Branch injection 03/16/21 at 125 mg 2100, STAT ipratropium 2020- No 3mL 3 mL, Univ ers -albuteroL 03-17 Inhalation it y of (DUONEB) 01:57: 02:15 , ONCE, 1 [place]avier as 0.5 mg-3 00 :00 dose, Sat Medica l mg(2.5 mg 03/16/21 at Bran base)/3 mL 2100, MICHAEL nebulizer solution 3 mL levoFLOXaci 2020- Yes [id number] 500mg Take 1 Univers n 500 mg 03-17 tablet by ity o f tablet 00:00: 04:59 mouth [place] 00 :00 daily for Medical 6 days. Branch levoFLOXaci 2020- Yes [id number] 500mg Take 1 Univers n 500 mg 03-17 tablet by ity o f tablet 00:00: 04:59 mouth [place] 00 :00 daily for Medical 6 days. Branch predniSONE 2020- Yes [id number] 30mg Take 3 Univers 10 mg 03-17 tablets by ity of tablet 00:00: 04:59 mouth [place] 00 :00 daily for Medical 4 days. Branch predniSONE 2020- Yes [id number] 30mg Take 3 Univers 10 mg 03-17 tablets by ity of tablet 00:00: 04:59 mouth [place] 00 :00 daily for Medical 4 days. Branch albuterol 2020- No [id number] 4{puff} 4 Puff, Univers (VENTOLIN) 03-15 Inhalation it y of inhaler 4 01:45: 00:44 , [place]CE, 1 [place] Puff 00 :00 dose, Arpita Medical 03/14/21 at Branch 2044, Routine dexamethaso 2020- No [id number] 10mg 10 mg, Univers ne 03-15 Intramuscu ity of (DECADRON) 01:45: 00:45 lar, ONCE, [place] injection 00 :00 1 dose, Medical 10 mg Arpita [place] 03/14/21 at 5, Routine albuterol 0 Yes [id number] 2.5mg Inhale 3 Univers 2.5 mg /3 8-27 mL every 4 ity of mL (0.083 00:00: (four) [place] %) 00 hours as Medical nebulizer needed for Bran ch solution Wheezing or Shortness of Breath. albuterol 0 Yes [id number] 2.5mg Inhale 3 Univers 2.5 mg /3 8-27 mL every 4 ity of mL (0.083 00:00: (four) [place] %) 00 hours as Medical nebulizer needed for Bran ch solution Wheezing or Shortness of Breath. albuterol Yes [id number] 2.5mg Inhale 3 Univers 2.5 mg /3 8-27 mL every 4 ity of mL (0.083 00:00: (four) [place] %) 00 hours as Medical nebulizer needed for Bran ch solution Wheezing or Shortness of Breath. levetiracet Yes Take by Un lois am (KEPPRA 8-03 mouth. ity of ORAL) 19:45: [address] levetiracet Yes Take by Un lois am (KEPPRA 8-03 mouth. ity of ORAL) 19:45: [address] levetiracet 0 Yes Take by Un losi am (KEPPRA 8-03 mouth. ity of ORAL) 19:45: [address] proMETHazin Yes [id number] 25mg Take 1 Univers e 25 mg 8-03 tablet by ity of tablet 00:00: mouth [place] 00 every 6 Medical (six) Branch hours as needed for Nausea and Vomiting (N/V). dicyclomine Yes [id number] 20mg Take 1 Univers 20 mg 8-03 tablet by ity of tablet 00:00: mouth (four) Medical times Branch daily as needed for Abdominal pain. proMETHazin 2021-0 Yes [id number] 25mg Take 1 Univers e 25 mg 8-03 tablet by ity of tablet 00:00: mouth 00 every 6 Medical (six) Branch hours as needed for Nausea and Vomiting (N/V). dicyclomine 2020-0 Yes [id number] 20mg Take 1 Univers 20 mg 8-03 tablet by ity of tablet 00:00: mouth (four) Medical times Branch daily as needed for Abdominal pain. proMETHazin 2021-0 Yes [id number] 25mg Take 1 Univers e 25 mg 8-03 tablet by ity of tablet 00:00: mouth 00 every 6 Medical (six) Branch hours as needed for Nausea and Vomiting (N/V). dicyclomine 2020-0 Yes [id number] 20mg Take 1 Univers 20 mg 8-03 tablet by ity of tablet 00:00: mouth (four) Medical times Branch daily as needed for Abdominal pain. ondansetron 2018-0 Yes 4mg Take 4 mg U nivers (ZOFRAN) 4 7-24 by mouth ity o f mg tablet 20:05: every 8 [place] (eight) Medical hours as Branch needed. pantoprazol 2018-0 Yes 40mg Take 40 mg Univers e 7-24 by mouth ity of (PROTONIX) 20:05: daily. [place] 40 mg EC Medical tablet Branch ondansetron 2018-0 Yes 4mg Take 4 mg U nivers (ZOFRAN) 4 7-24 by mouth ity o f mg tablet 20:05: every 8 [place] (eight) Medical hours as Branch needed. pantoprazol 2018-0 Yes 40mg Take 40 mg Univers e 7-24 by mouth ity of (PROTONIX) 20:05: daily. [place] 40 mg EC 01 Medical tablet Branch ondansetron 2018-0 Yes 4mg Take 4 mg U nivers (ZOFRAN) 4 7-24 by mouth ity o f mg tablet 20:05: every 8 [place] (eight) Medical hours as Branch needed. pantoprazol 2018-0 Yes 40mg Take 40 mg Univers e 7-24 by mouth ity of (PROTONIX) 20:05: daily. [place] 40 mg EC 01 Medical tablet Branch lisinopril- Yes 1{tbl} Take 1 Un lois hydrochloro 7-24 tablet by ity of thiazide 20:03: mouth [place] 20-12.5 mg 30 daily. Medical per tablet Branch lisinopril- Yes 1{tbl} Take 1 Un lois hydrochloro 7-24 tablet by ity of thiazide 20:03: mouth [place] 20-12.5 mg 30 daily. Medical per tablet Branch lisinopril- Yes 1{tbl} Take 1 Un lois hydrochloro 7-24 tablet by ity of thiazide 20:03: mouth [place] 20-12.5 mg 30 daily. Medical per tablet Branch omega-3 Yes 1g Take 1 g Univer s fatty 7-24 by mouth ity of acids-vitam 19:59: daily. [place] in E (FISH 52 Medical OIL) 1,000 Branch mg capsule omega-3 Yes 1g Take 1 g Univer s fatty 7-24 by mouth ity of acids-vitam 19:59: daily. [place] in E (FISH 52 Medical OIL) 1,000 Branch mg capsule omega-3 Yes 1g Take 1 g Univer s fatty 7-24 by mouth ity of acids-vitam 19:59: daily. [place] in E (FISH 52 Medical OIL) 1,000 Branch mg capsule MULTIVITAMI Yes 1{tbl} Take 1 Tab Univers N ORAL 7-24 by mouth ity of 19:58: daily. [place] 14 Medical Branch loratadine Yes Take by Uni vers (CLARITIN 7-24 mouth ity of LIQUI-GEL) 19:58: daily. [place] 10 mg 14 Medical capsule Branch MULTIVITAMI Yes 1{tbl} Take 1 Tab Univers N ORAL 7-24 by mouth ity of 19:58: daily. [place] 14 Medical Branch loratadine Yes Take by Uni vers (CLARITIN 7-24 mouth ity of LIQUI-GEL) 19:58: daily. [place] 10 mg 14 Medical capsule Branch MULTIVITAMI Yes 1{tbl} Take 1 Tab Univers N ORAL 7-24 by mouth ity of 19:58: daily. [place] 14 Medical Branch loratadine 2017-0 Yes Take by Uni vers (CLARITIN 7-24 mouth ity of LIQUI-GEL) 19:58: daily. [place] 10 mg 14 Medical [facility] Branch carvedilol 0 Yes 6.25mg Take 1 Tab Univers (COREG) 3-03 by mouth 2 ity of 6.25 mg 00:00: (two) [place] tablet 00 times Medical daily with Branch meals. amLODIPine 2015-0 Yes 10mg Take 1 Tab U nivers (NORVASC) 3-03 by mouth ity of 10 mg 00:00: daily. [place] tablet 00 Medical Branch lisinopril 0 Yes 40mg Take 1 Tab U nivers (PRINIVIL,Z 3-03 by mouth ity of ESTRIL) 40 00:00: daily. [place] mg tablet 00 Medical Branch carvedilol 0 Yes 6.25mg Take 1 Tab Univers (COREG) 3-03 by mouth 2 ity of 6.25 mg 00:00: (two) [place] tablet 00 times Medical daily with Branch meals. amLODIPine 0 Yes 10mg Take 1 Tab U nivers (NORVASC) 3-03 by mouth ity of 10 mg 00:00: daily. [place] tablet 00 Medical Branch lisinopril 0 Yes 40mg Take 1 Tab U nivers (PRINIVIL,Z 3-03 by mouth ity of ESTRIL) 40 00:00: daily. [place] mg tablet 00 Medical Branch carvedilol 0 Yes 6.25mg Take 1 Tab Univers (COREG) 3-03 by mouth 2 ity of 6.25 mg 00:00: (two) [place] tablet 00 times Medical daily with Branch meals. amLODIPine 0 Yes 10mg Take 1 Tab U nivers (NORVASC) 3-03 by mouth ity of 10 mg 00:00: daily. [place] tablet 00 Medical Branch lisinopril 2015-0 Yes 40mg Take 1 Tab U nivers (PRINIVIL,Z 3-03 by mouth ity of ESTRIL) 40 00:00: daily. [place] mg tablet 00 Medical Branch Vital Signs Vital Name Observation Time Observation Value Comments Source Systolic blood 2021-03-17 03:00:00 117 mm[Hg] Univer sity of pressure [facility] Branch Diastolic blood 2021-03-17 03:00:00 76 mm[Hg] Unive rsity of pressure [place] [facility] Heart rate 2021-03-17 03:00:00 104 /min Universi ty of [place] [facility] Respiratory rate 2021-03-17 03:00:00 28 /min Univ ersity of [place] [facility] Oxygen saturation in 2021-03-17 03:00:00 96 /min University of Arterial blood by [facility] Pulse oximetry Branch Body temperature 2021-03-17 00:39:00 37.11 Radha Univ ersity of [place] [facility] Body height 2021-03-17 00:39:00 160 cm Universi ty of [place] [facility] Body weight 2021-03-17 00:39:00 58.968 kg Universi ty of [place] [facility] BMI 2021-03-17 00:39:00 23.03 kg/m2 Universi ty of [place] [facility] Systolic blood 2021-03-15 00:14:00 149 mm[Hg] Univer sity of pressure [place] [facility] Diastolic blood 2021-03-15 00:14:00 78 mm[Hg] Unive rsity of pressure [place] [facility] Heart rate 2021-03-15 00:14:00 100 /min Universi ty of [place] [facility] Body temperature 2021-03-15 00:14:00 37.33 Radha [facility] [place] [facility] ersity of [place] [facility] Respiratory rate 2021-03-15 00:14:00 24 /min Univ ersity of [place] [facility] Body height 2021-03-15 00:14:00 160 cm Universi ty of [place] [facility] Body weight 2021-03-15 00:14:00 58.968 kg Universi ty of [place] [facility] BMI 2021-03-15 00:14:00 23.03 kg/m2 Universi ty of [place] [facility] Oxygen saturation in 2021-03-15 00:14:00 98 /min University of Arterial blood by [facility] Pulse oximetry Branch Procedures Procedure Date / Time Performed Performing Clinician Sour e URINALYSIS 2021-03-17 03:09:00 Fabrice Chakraborty [facility] XR CHEST 1 VW 2021-03-17 01:45:07 Palmer [facility] TROPONIN I 2021-03-17 01:35:00 Fabrice Chakraborty [facility] COMP. METABOLIC PANEL 2021-03-17 01:35:00 Fabrice Chakraborty [facility] ([id number]) Medical Branch CBC WITH DIFF 2021-03-17 01:35:00 Fabrice Chakraborty [facility] N-TERMINAL PRO-BNP 2021-03-17 01:35:00 Fabrice Chakraborty [facility] Medical Branch COVID-19 (ID NOW RAPID 2021-03-17 00:58:00 Brian Ray [facility] TESTING) Medical Branch CONSENT/REFUSAL FOR 2021-03-17 00:32:59 Doctor Unassigned, No Un [facility] DIAGNOSIS AND Name Medical Branch TREATMENT Encounters Start End Encounter Admission Attending Care Care Encounter Source Date/Time Date/Time Type Type Clinicians Facility Department ID 2021-03-17 2021-03-17 Telephone EWELINA Nava [id number] Univers 00:00:00 00:00:00 [id number] Javier as [id number] [facility] 019 Branch 2021-03-16 2021-03-16 Emergency [facility] [id number] [facility] 20:08:00 23:24:00 Fabrice Harrell [id number] i ty of [place] 4.2.7.2.686 [facility] [id number] [facility] 084 Branch 2021-03-14 2021-03-14 Urgent Lydia Desouza [facility] [id number] Univers 18:59:34 20:19:13 Care Unknown, Attending Health [id number] ity [facility] [id number] Javier as Prem?Blea [id number] [place] damon [address] Medical Office Building 2019-03-09 2019-03-09 Dick Arcos [facility] [id number] 00:00:00 00:00:00 Yehuda Harrell [id number] [place] 4.2.7.2.686 Professio [id number] nal 092 Building Results Test Description Test Time Test Comments Results Result Comments Source URINALYSIS 2021-03-17 03:22:48 Test Item Value Reference Range Interpretation Comme nts APPEARANCE (test code = Hazy Clear A 0422692184) COLOR (test code = 5840949860) Yellow Yellow PH (test code = 2315491459) 4.8-8.0 SP GRAVITY (test code = 1.003-1.030 9487981600) GLU U QUAL (test code = Normal Normal 4331399098) BLOOD (test code = 8163875616) Negative Negative KETONES (test code = 1675544688) 5 mg/dL Negative A PROTEIN (test code = 2887-8) Negative Negative UROBILIN (test code = 4.0 mg/dL Normal A 7798510982) BILIRUBIN (test code = Negative Negative 4651143173) NITRITE (test code = 2751899209) Negative Negative LEUK GRUPO (test code = Negative Negative 8037782045) RBC/HPF (test code = 6109621981) See_Comment [Automated message] The system which ge nerated this result transmit sherice reference range: 0 - 3 HP F. The reference range was not used to interpret th is result as normal/abnormal . WBC/HPF (test code = 7644479324) <1 See_Comment [Automated message] The system which ge nerated this result transmit sherice reference range: 0 - 5 HP F. The reference range was not used to interpret th is result as normal/abnormal . BACTERIA (test code = Few Negative A 8564673726) SQ EPITH (test code = HPF 7844241555) Lab Interpretation (test code = Abnormal 51263-1) [id number] Test Item Value Reference Range Interpretation Comments TROPONIN I (test code = 0.002 ng/mL See_Comment [Au tomated 1113959368) message] The sy stem which generated this result transmitted reference range : <=0.034. The reference range was not used to interpret this result as normal/abnormal . LYNDSAY (test code = LYNDSAY) Lab Interpretation Normal (test code = 85508-7) [facility] [id number] 02:41:57 Test Item Value Reference Range Interpretation Comments NT-proBNP (test code = 169 pg/mL See_Comment H [Aut omated message] 2908080323) The system [employer] generated this result transmit sherice reference range : <=125. The refe rence range was not u sed to interpret th is result as normal/abnormal . LYNDSAY (test code = LYNDSAY) Lab Interpretation (test Abnormal code = 58619-0) [facility]. METABOLIC PANEL (95509)2021-03-17 02:09:13 Test Item Value Reference Range Interpretation Comments NA (test code = 5318308333) 137 mmol/L 135-145 K (test code = 3571605142) 4.2 mmol/L 3.5-5.0 CL (test code = 2720119383) 102 mmol/L 98-108 CO2 TOTAL (test code = 3310342843) 25 mmol/L 23-31 AGAP (test code = 6996343740) 2-16 BUN (test code = 9671941704) 18 mg/dL 7-23 GLUCOSE (test code = 1629088752) 144 mg/dL 70-110 H CREATININE (test code = 0.77 mg/dL 0.50-1.04 8372503991) TOTAL BILI (test code = 0.4 mg/dL 0.1-1.3 1958547923) CALCIUM (test code = 2452346983) 8.9 mg/dL 8.6-10.6 T PROTEIN (test code = 0152790285) 6.8 g/dL 6.3-8.2 ALBUMIN (test code = 1608769624) 3.9 g/dL 3.5-5.0 ALK PHOS (test code = 5633970790) 84 U/L 34-122 ALTv (test code = 1742-6) 13 U/L 5-35 AST(SGOT) (test code = 7986545408) 17 U/L 13-40 eGFR (test code = 3947133812) mL/min/1.73m2 LYNDSAY (test code = LYNDSAY) Lab Interpretation (test code = Abnormal 24262-6) [facility] WITH [id number] 01:56:33 Test Item Value Reference Range Interpretation Comments WBC (test code = See_Comment H [Automated 6690-2) message] The sy stem which generated this result transmitted reference range : 4.30 - 11.10 10*3/?L. The reference range was not used to interpret this result as normal/abnormal . RBC (test code = See_Comment [Automated 789-8) message] The sy stem which generated this result transmitted reference range : 3.93 - 5.25 10*6/?L. The reference range was not used to interpret this result as normal/abnormal . HGB (test code = 10.8 g/dL 11.6-15.0 L 718-7) HCT (test code = 34.7 % 35.7-45.2 L 4544-3) MCV (test code = 81.3 fL 80.6-95.5 787-2) MCH (test code = 25.3 pg 25.9-32.8 L 785-6) MCHC (test code = 31.1 g/dL 31.6-35.1 L 786-4) RDW-SD (test code = 55.5 fL 39.0-49.9 H 99505-4) RDW-CV (test code = 18.9 % 12.0-15.5 H 788-0) PLT (test code = See_Comment H [Automated 777-3) message] The sy stem which generated this result transmitted reference range : 166 - 358 10*3/ ?L. The reference r zoe was not used to interpret this result as normal/abnormal . MPV (test code = 8.2 fL 9.5-12.9 L 68703-8) NRBC/100 WBC (test See_Comment [Automat ed code = 6152336136) message] The system which generated this result transmitted reference range : 0.0 - 10.0 /100 WBCs. The refer ence range was not u sed to interpret th is result as normal/abnormal . NRBC x10^3 (test code <0.01 See_Comment [Auto mated = 6756667611) message] The s ystem which generated this result transmitted reference range : 10*3/?L. The reference range was not used to interpret this result as normal/abnormal . GRAN MAT (NEUT) % 61.7 % (test code = 770-8) IMM GRAN % (test code 0.80 % = 0873975592) LYMPH % (test code = 28.5 % 736-9) MONO % (test code = 6.3 % 5905-5) EOS % (test code = 1.8 % 713-8) BASO % (test code = 0.9 % 706-2) GRAN MAT x10^3(ANC) 7.31 10*3/uL 1.88-7.09 H (test code = 1789141014) IMM GRAN x10^3 (test 0.09 10*3/uL 0.00-0.06 H code = 1709773379) LYMPH x10^3 (test code 3.38 10*3/uL 1.32-3.29 H = 731-0) MONO x10^3 (test code 0.75 10*3/uL 0.33-0.92 = 742-7) EOS x10^3 (test code = 0.21 10*3/uL 0.03-0.39 711-2) BASO x10^3 (test code 0.11 10*3/uL 0.01-0.07 H = 704-7) Lab Interpretation Abnormal (test code = 39988-6) [facility]ID [facility])2021-03-17 01:38:12 Test Item Value Reference Range Interpretation Comments SARS-CoV-2 Rapid ID NOW (test Not Detected Not Detected code = 62763-1) LYNDSAY (test code = LYNDSAY) Lab Interpretation (test code = Normal 45231-7) [facility]
[2021-03-24 15:12] LABS: Basophils % 2.5 % (0-1.3); Hematocrit 36.9 % (36.0-45.0); Lymphocytes % 40.8 % (15.3-44.8); MPV 6.4 fL (7.6-11.3); RBC Red Blood Cell Count 4.67 M/uL (3.86-4.86)
[2021-03-24] MEDS ORDERED: KETOROLAC 30 MG/ML INJ ONE (15:16)
[2021-03-24 15:30] LABS: ALT/SGPT 17 U/L (12-78); AST/SGOT 13 U/L (15-37); Albumin 2.9 g/dL (3.4-5.0); Alkaline Phosphatase 60 U/L (45-117); BUN Blood Urea Nitrogen 9 mg/dL (7-18); Bicarbonate 20 mmol/L (21-32); Bilirubin Direct 0.1 mg/dL (0-0.2); Bilirubin Total 0.4 mg/dL (0.2-1.0); Glucose Level 79 mg/dL (74-106); Protein, Total 5.7 g/dL (6.4-8.2); Sodium Level 141 mmol/L (136-145)
[2021-03-24 15:32] LABS: Potassium 2.9 mmol/L (3.5-5.1)
--- NOTE | 2021-03-24 15:50 | ER ---
Nurse's Notes [facility] Name: Heather Coon Age: 51 yrs Sex: Female : 1970 Arrival Date: 03/24/2021 Time: 14:15 Bed 4 Private MD: Diagnosis: Other seizures;Hypokalemia;Hypercalcemia Presentation: 03/24 14:10 Chief complaint: EMS states: 51 yr. old female was at home and had three seizures rb3 before [facility] arrived. Once EMS arrived the pt had a 4 th seizure and they administered Ativan 2 mg IVP via IV 20 g L AC. Had a 5 th seizure and they administered 2 mg IVP. BP 140/110, P 130's-140's, O2 99% RA, BGL 77. Tremors are noted. Pt reports being under a lot more stress due to the deaths of family members. Coronavirus screen: Vaccine status: Patient reports being unvaccinated. Ebola Screen: Patient denies travel to an Ebola-affected area in the 21 days before illness onset. Initial Sepsis Screen: Does the patient meet any 2 criteria? No. Patient's initial sepsis screen is negative. Does the patient have a suspected source of infection? No. Patient's initial sepsis screen is negative. Risk Assessment: Do you want to hurt yourself or someone else? Patient reports no desire to harm self or others. Onset of symptoms was March 24, 2021 at 13:10. 14:10 Method Of Arrival: EMS: [facility] rb3 14:10 Acuity: ANDER 3 rb3 14:10 Care prior to arrival: Medication(s) given: Ativan 2 mg IVP twice. rb3 Triage Assessment: 14:10 General: Appears in no apparent distress. comfortable, Behavior is calm, cooperative. rb3 Pain: Complains of pain in back and arms Pain currently is 6 out of 10 on a pain scale. Neuro: Level of Consciousness is awake, alert, obeys commands, Oriented to person, place, time, situation. Cardiovascular: Patient's skin is warm and dry. Respiratory: Airway is patent Respiratory effort is even, unlabored, Respiratory pattern is regular, symmetrical. GI: No signs and/or symptoms were reported involving the gastrointestinal system. : No signs and/or symptoms were reported regarding the genitourinary system. Musculoskeletal: Tremors noted upon arrival to the ED. 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 - Social history:: Smoking status: Patient reports the use of cigarette tobacco products, smokes one pack cigarettes per day. Screenin:10 Abuse screen: Denies threats or abuse. Nutritional screening: No deficits noted. rb3 Tuberculosis screening: No symptoms or risk factors identified. Fall Risk Fall in past 12 months (25 points). Secondary diagnosis (15 points) seizures, IV access (20 points). Ambulatory Aid- None/Bed Rest/Nurse Assist (0 pts). Gait- Normal/Bed Rest/Wheelchair (0 pts) Mental Status- Oriented to own ability (0 pts). Total Costello Fall Scale indicates High Risk Score (45 or more points). Fall prevention measures have been instituted. Side Rails Up X 2 Placed Close to Nursing Station Frequent Obs/Assessments Occuring As available patient and family educated on Fall Prevention Program and Strategies. Assessment: 14:10 General: See triage assessment. rb3 14:57 Reassessment: When I went into the exam room to give the Toradol, pt. reports that it rb3 makes her skin blister. Dr. Hummel notified. Instructed not to give the Toradol and no new orders were received. 16:07 Reassessment: pt at nurse's station speaking to Dr. Hummel , pt arguing that she needs iw pain medication, states she will leave and go to [place] , states she has a lawsuit pending with this hospital, Dr. Hummel advised pt that he is willing speak with her in more detail in her room, pt refuses,, pt walked out of department with steady gait, i visualized pt walk out to parking lot , I asked security to please keep an eye on her, pt called and was notified that she left. Vital Signs: 14:10 BP 156 / 119; Pulse 133; Resp 20; Temp 98.3; Pulse Ox 99% on R/A; Weight 68.04 kg; rb3 Height 5 ft. 3 in. (160.02 cm); Pain 6/10; 15:00 BP 139 / 100; Pulse 122; Resp 20; Pulse Ox 100% ; rb3 14:10 Body Mass Index 26.57 (68.04 kg, 160.02 cm) rb3 [place] Coma Score: 14:56 Eye Response: spontaneous(4). Verbal Response: oriented(5). Motor Response: obeys sp3 commands(6). Total: 15. ED Course: 14:10 Arm band placed on right wrist. rb3 14:10 Patient has correct armband on for positive identification. Bed in low position. Call rb3 light in reach. Side rails up X2. Seizure precautions initiated. senior grant writer on. Pulse ox on. NIBP on. Warm blanket given. 14:10 Maintain EMS IV. Dressing intact. Good blood return noted. Site clean \T\ dry. Gauge \T\ rb 3 site: 20 G L AC. 14:15 Patient arrived in ED. as 14:17 Rogelio Hummel MD is Attending Physician. sp3 14:18 Makenna Srinivasan, RN is Primary Nurse. rb3 14:28 Triage completed. rb3 14:49 EKG done, by ED staff, reviewed by Rogelio Hummel MD. Initial lab(s) drawn, by ok, sent to [facility] lab. Administered Medications: 15:00 Not Given (Pt reports that it makes her skin blister. Dr. Hummel notifiedd): Ketorolac rb3 30 mg IVP once Outcome: 16:11 AMA Left before signing form. iw 16:11 Patient left the ED. iw Signatures: Marilin Orellana Irene, RN RN iw Martinez, Maria [facility] Makenna Srinivasan, BETH CAMPOS rb3 Rogelio Hummel MD MD sp3
--- NOTE | 2021-03-24 15:50 | EDPHYS ---
Physician Documentation [facility] Name: Heather Coon Age: 51 yrs Sex: Female : 1970 Arrival Date: 03/24/2021 Time: 14:15 Bed 4 Private MD: ED Physician Rogelio Hummel HPI: 03/24 14:52 This 51 yrs old Female presents to ER via EMS with complaints of Seizure. sp3 14:52 51-year-old female with a history of seizure disorder on Keppra, cocaine abuse, drug sp3 abuse, chronic pain, chronic chest pain presents via EMS for 3 seizures prior to arrival. Patient states that she has not had any changes in her medication regimen. EMS administered 2 doses of Ativan IV. Patient denies any recent drug abuse or any recent trauma. She does state that she "hurts all over" but cannot specify any changes in her chronic pain syndrome. She denies any trauma, known sick contacts, headache, low back pain, nausea, vomiting, diarrhea, fever, URI symptoms, syncope, or any other systems at this time. All other ROS are negative.. 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 - Social history:: Smoking status: Patient reports the use of cigarette tobacco products, smokes one pack cigarettes per day. ROS: 14:55 Constitutional: Negative for fever, chills, and weight loss, Eyes: Negative for injury, sp3 pain, redness, and discharge, Neck: Negative for injury, pain, and swelling, Cardiovascular: Negative for chest pain, palpitations, and edema, Respiratory: Negative for shortness of breath, cough, wheezing, and pleuritic chest pain, Abdomen/GI: Negative for abdominal pain, nausea, vomiting, diarrhea, and constipation, Back: Negative for injury and pain, MS/Extremity: Negative for injury and deformity, Skin: Negative for injury, rash, and discoloration, Psych: Negative for depression, anxiety, suicide ideation, homicidal ideation, and hallucinations. 14:55 Neuro: Positive for seizure activity, Alleged seizure activity prior to arrival., Negative for altered mental status, hearing loss, loss of consciousness, speech changes, syncope, visual changes. Exam: 14:56 Constitutional: This is a well developed, well nourished patient who is awake, alert, sp3 and in no acute distress. Head/Face: Normocephalic, atraumatic. Eyes: Pupils equal round and reactive to light, extra-ocular motions intact. Lids and lashes normal. Conjunctiva and sclera are non-icteric and not injected. Cornea within normal limits. Periorbital areas with no swelling, redness, or edema. ENT: Nares patent. No nasal discharge, no septal abnormalities noted. External auditory canals are clear. Oropharynx with no redness, swelling, or masses, exudates, or evidence of obstruction, uvula midline. Mucous membranes moist. Neck: Trachea midline, no thyromegaly or masses palpated, and no cervical lymphadenopathy. Supple, full range of motion without nuchal rigidity, or vertebral point tenderness. No Meningismus. Cardiovascular: Regular rhythm with a normal S1 and S2. No gallops, murmurs, or rubs. Normal PMI, no JVD. No pulse deficits. Respiratory: Lungs have equal breath sounds bilaterally, clear to auscultation and percussion. No rales, rhonchi or wheezes noted. No increased work of breathing, no retractions or nasal flaring. 14:56 Cardiovascular: Rate: tachycardic. Vital Signs: 14:10 BP 156 / 119; Pulse 133; Resp 20; Temp 98.3; Pulse Ox 99% on R/A; Weight 68.04 kg; rb3 Height 5 ft. 3 in. (160.02 cm); Pain 6/10; 15:00 BP 139 / 100; Pulse 122; Resp 20; Pulse Ox 100% ; rb3 14:10 Body Mass Index 26.57 (68.04 kg, 160.02 cm) rb3 [place] Coma Score: 14:56 Eye Response: spontaneous(4). Verbal Response: oriented(5). Motor Response: obeys sp3 commands(6). Total: 15. MDM: 14:17 Patient medically screened. sp3 14:57 Data reviewed: vital signs, nurses notes. ED course: Patient has exhibited multiple sp3 episodes of pseudoseizure activity including voluntary shaking, full speech during shaking, and no postictal period. During my history and physical patient demanded "pain medication" for all of her pain that she has been having for "months". I offered to give her a nonnarcotic pain medication at which point she verbally became abusive and started asking for a new physician as well as demanding narcotic pain medications stating "you all do not know who I am". Clinically patient is tachycardic in the 120s mainly due to likely being upset. I do not believe patient had seizure activity today and has definitely not had seizure activity while in the emergency department under our care. This behavior was also in front of the nursing staff. I have told her we would check laboratory values, administer IV fluid, and address her pain in the proper clinical approach. However she declines these items and again demands narcotic pain medication at this time.. 15:41 ED course: Patient's potassium is low and calcium was elevated. Prior to me going into 3 her room to evaluate options and treatment plan, patient stormed out of the room ambulating without any difficulty after removing her IV herself and stated that she was leaving AMA. She again demanded narcotic pain medications and upon being told that those are currently not indicated, she started screaming and exited the emergency department. Patient urged not to leave and that we would continue taking care of her but she elected to walk out on her own volition. Gait was observed to be normal as she exited the premises.. 03/24 14:29 Order name: Acetaminophen sp3 03/24 14:29 Order name: Basic Metabolic Panel 3 03/24 14:29 Order name: CBC with Diff sp3 03/24 14:29 Order name: ETOH Level sp3 03/24 14:29 Order name: Hepatic Function sp3 03/24 14:29 Order name: Salicylate sp3 03/24 14:29 Order name: Urine Drug Screen 3 03/24 15:46 Order name: CBC with Automated Diff EDMS 03/24 15:46 Order name: Basic Metabolic Panel EDMS 03/24 15:46 Order name: Liver (Hepatic) Function EDMS 03/24 15:46 Order name: Acetaminophen Level EDMS 03/24 15:46 Order name: Alcohol Serum/Plasma EDMS 03/24 15:46 Order name: Salicylates Level EDMS 03/24 14:29 Order name: EKG; Complete Time: 21:21 sp3 03/24 14:29 Order name: EKG - Nurse/Tech; Complete Time: 14:49 sp3 03/24 14:29 Order name: IV Saline Lock; Complete Time: 14:42 sp3 03/24 14:29 Order name: Labs collected and sent; Complete Time: 15:08 sp3 Administered Medications: 15:00 Not Given (Pt reports that it makes her skin blister. Dr. Hummel notifiedd): Ketorolac rb3 30 mg IVP once Disposition Summary: 03/24/21 15:45 Left Against Medical Advice Location: Home sp3 Problem: chronic sp3 Symptoms: are unchanged sp3 Condition: Stable sp3 Diagnosis - Other seizures sp3 - Hypokalemia sp3 - Hypercalcemia sp3 Signatures: Dispatcher [employer] [facility] Makenna Srinivasan RN RN rb3 Rogelio Hummel MD MD sp3 Corrections: (The following items were deleted from the chart) 15:47 15:41 ED course: Patient's potassium is low and calcium was elevated. Prior to me going sp3 into her room to evaluate options and treatment plan, patient stormed out of the room ambulating without any difficulty after removing her IV herself and stated that she was leaving AMA. She again demanded narcotic pain medications and upon being told that those are currently not indicated, she started screaming and exited the emergency department.. sp3
[2021-03-24 16:22] LABS: Barbiturates NEGATIVE (NEGATIVE); Benzodiazepines NEGATIVE (NEGATIVE); Cocaine POSITIVE (NEGATIVE); METHAMPHETAM NEGATIVE (NEGATIVE); Methadone NEGATIVE (NEGATIVE); Opiates NEGATIVE (NEGATIVE); Phencyclidine NEGATIVE (NEGATIVE); THC Cannibis NEGATIVE (NEGATIVE)
--- NOTE | 2021-03-25 16:57 | EKG ---
Test Date: 2021-03-24 Test Time: 14:41:34 Tax Revenue Officer: TODD MEASUREMENT RESULTS: Intervals: Rate: 135 KS: 116 QRSD: 78 QT: 308 QTc: 462 [place]: P: 54 KS: 116 QRS: 115 T: 50 INTERPRETIVE STATEMENTS: Sinus tachycardia Right axis deviation Abnormal ECG Compared to ECG 02/12/2021 19:57:22 Sinus rhythm no longer present Myocardial infarct finding no longer present Electronically Signed On 03-25-21 16:55:41 CDT by Migel Warren
[2021-03-26 14:43] LABS: Urine Blood Negative (Negative); Urine Glucose Negative (Negative); Urine Protein Negative (Negative); Urine pH 6.5 (5.0-7.0)
== END 2021-03-24 16:11 | disposition left against medical advice (07) ==
LOC: ER 14:13
DX: E87.6 Hypokalemia (principal); E83.52 Hypercalcemia; I10 Essential (primary) hypertension; Z88.5 Allergy status to narcotic agent; Z91.018 Allergy to other foods
CPT/HCPCS: 36415; 80048; 80076; 80307; 80320; 80329; 81003; 85025; 93005; 99284

== ENCOUNTER 2021-04-05 12:47 | Emergency (ER) | payer OTHER, SELFPAY ==
--- NOTE | 2021-04-05 15:07 | RAD REPORT ---
EXAM DESCRIPTION: CT - Head C Spine Mpr Wo Con - 04/05/2021 2:54 pm CLINICAL HISTORY: Head and neck injury status post fall. Head and neck pain. Seizure COMPARISON: January 2021 TECHNIQUE: Computed axial tomography of the head and cervical spine was obtained. Sagittal and coronal reconstruction was performed. All CT scans are performed using dose optimization technique as appropriate and may include automated exposure control or mA/KV adjustment according to patient size. FINDINGS: An intracranial bleed is not seen. The ventricles are normal in caliber. An extra-axial fl uid collection is not noted.Fluid within the visualized sinuses and mastoids is not seen A cervical fracture is not visualized. No dislocation is noted. Anterior fusion involves C4 through C 7. IMPRESSION: No acute intracranial abnormality is seen. A cervical fracture is not visualized. If the patient continues to have symptoms to suggest intracra nial /spinal cord pathology then MRI would be recommended
[2021-04-05] MEDS ORDERED: MORPHINE 4 MG/ML SYR ONE ×2 (15:14→17:27)
[2021-04-05] MEDS ORDERED: KETOROLAC 30 MG/ML INJ ONE (15:16)
[2021-04-05] MEDS ORDERED: DIAZEPAM 10 MG/2 ML INJ SYRINGE ONE (15:16)
[2021-04-05] MEDS ORDERED: ONDANSETRON 4 MG/2 ML VIAL ONE (15:16)
--- NOTE | 2021-04-05 15:23 | RAD REPORT ---
EXAM DESCRIPTION: RAD - Shoulder Left 2 View - 04/05/2021 3:17 pm CLINICAL HISTORY: Left shoulder pain status post fall FINDINGS: No fracture or dislocation is seen.
--- NOTE | 2021-04-05 15:24 | RAD REPORT ---
EXAM DESCRIPTION: RAD - Humerus Left - 04/05/2021 3:16 pm CLINICAL HISTORY: Left arm pain status post fall FINDINGS: No fracture is seen
[2021-04-05] MEDS ORDERED: LORazepam 2 MG/ML VIAL ONE (17:30)
[2021-04-05] MEDS ORDERED: NA CHLORIDE 0.9% 100 ML ONE (17:35)
[2021-04-05] MEDS ORDERED: LEVETIRACETAM 500 MG/5 ML VIAL IV ONE (17:35)
--- NOTE | 2021-04-05 17:49 | EDPHYS ---
Physician Documentation [facility] Name: Heather Coon Age: 51 yrs Sex: Female : 1970 Arrival Date: 04/05/2021 Time: 12:47 Bed 18 Private MD: ED Physician Matt Urias HPI: 04/05 17:36 This 51 yrs old Female presents to ER via Ambulatory with complaints of Arm jmm Pain. 17:36 The complaints affect the anterior aspect of left shoulder, left bicep, left jmm antecubital area, dorsal aspect of left forearm and left wrist. Onset: The symptoms/episode began/occurred acutely, 5 day(s) ago. Modifying factors: The symptoms are alleviated by nothing. the symptoms are aggravated by movement. This is a 51-year-old female with history of anxiety, bipolar, chronic pain, depression, diverticulitis that presents emerged part with complaints of left arm pain. Patient states this occurred after a seizure she is not sure if she hit the arm or if it exacerbated her previous neck injury. Denies weakness in the arm.. Historical: - Allergies: 13:13 Green Tea; aa5 13:13 Prozac; aa5 - PMHx: 13:13 Anxiety; Bipolar disorder; Chronic pain; Depression; Diverticulitis; Herniated Back aa5 Disc; Hypertension; intestinal mass; Myocardial infarction; pt reports hx of seizures; Spastic Muscles; stroke; - PSHx: 13:13 Cholecystectomy; aa5 13:15 Cervical fusion; aa5 - Immunization history:: Adult Immunizations unknown. - Social history:: Smoking status: Patient reports the use of cigarette tobacco products, smokes one pack cigarettes per day. ROS: 17:36 Constitutional: Negative for fever, chills, and weight loss, Cardiovascular: Negative jmm for chest pain, palpitations, and edema, Respiratory: Negative for shortness of breath, cough, wheezing, and pleuritic chest pain, Abdomen/GI: Negative for abdominal pain, nausea, vomiting, diarrhea, and constipation. 17:36 Neck: Positive for pain with movement. 17:36 MS/extremity: Positive for pain. 17:36 All other systems are negative. Exam: 17:36 Head/Face: atraumatic. Eyes: EOMI, no conjunctival erythema appreciated ENT: Moist jmm Mucus Membranes 17:36 Cardiovascular: Regular rate and rhythm. No edema appreciated Respiratory: Normal respirations, no respiratory distress appreciated Abdomen/GI: Non distended, soft Back: Normal ROM Skin: General appearance color normal 17:36 Constitutional: The patient appears in no acute distress, alert, awake. 17:36 Neck: ROM/movement: is normal. 17:36 Musculoskeletal/extremity: ROM: intact in all extremities. 17:36 Skin: Appearance: Color: normal in color. 17:36 Neuro: Orientation: is normal, Mentation: is normal, Memory: is normal. 17:36 Psych: Behavior/mood is pleasant, cooperative. Vital Signs: 12:23 BP 147 / 83; Pulse 90; Resp 18; Pulse Ox 95% on R/A; tr6 13:12 BP 156 / 98; Pulse 104; Resp 20 S; Temp 98.2(TE); Pulse Ox 99% on R/A; Weight 69.85 kg aa5 (R); Height 5 ft. 3 in. (160.02 cm) (R); 15:24 BP 145 / 89; Pulse 90; Resp 19; Pulse Ox 98% ; tr6 16:21 Pain 6/10; tr6 18:00 BP 156 / 95; Pulse 96; Resp 18; Pulse Ox 98% on R/A; tr6 13:12 Body Mass Index 27.28 (69.85 kg, 160.02 cm) aa5 MDM: 14:41 Patient medically screened. [facility] 17:46 Data reviewed: vital signs, nurses notes. Counseling: I had a detailed discussion with willis the patient and/or guardian regarding: the historical points, exam findings, and any diagnostic results supporting the discharge/admit diagnosis, lab results, radiology results, the need for outpatient follow up, to return to the emergency department if symptoms worsen or persist or if there are any questions or concerns that arise at home. ED course: Patient exhibited seizure-like symptoms in the ER. This was approximate 30 minutes after administration of IV Valium. Patient had to no postictal phase, there was no injury during the seizure activity, no loss of bowel or bladder activity. Patient states that she had taken her daily dose of Keppra but it had decreased sleep due to pain and states that after she talked with the coal passer that this could have brought on the seizure. Patient was given an IV 1 g dose of Keppra as well as a dose of 1 mg of Ativan during seizure activity. Patient advised to follow-up with her neurologist as well as follow-up with orthopedic surgery for further evaluation of arm pain, and paresthesias involving the ulnar distribution of her left hand.. 04/05 13:16 Order name: Humerus Left XRAY; Complete Time: 15:26 [facility] 04/05 13:16 Order name: Shoulder Left (2 View) XRAY; Complete Time: 15:24 [facility] 04/05 14:43 Order name: CT Head C Spine [facility] 04/05 15:07 Order name: CT; Complete Time: 15:22 [facility] 04/05 14:43 Order name: Saline Lock; Complete Time: 15:23 [facility] Administered Medications: 15:22 Drug: Valium (diazepam) 5 mg Route: IVP; Site: right antecubital; tr6 18:12 Follow up: Response: No adverse reaction tr6 15:22 Drug: Ketorolac 30 mg Route: IVP; Site: right antecubital; tr6 18:11 Follow up: Response: No adverse reaction; Pain is decreased tr6 15:23 Drug: morphine 4 mg Route: IVP; Site: right antecubital; tr6 18:11 Follow up: Response: No adverse reaction; Pain is decreased tr6 15:23 Drug: Zofran (Ondansetron) 4 mg Route: IVP; Site: right antecubital; tr6 18:11 Follow up: Response: No adverse reaction tr6 18:11 Follow up: Response: No adverse reaction tr6 17:10 Drug: morphine 4 mg Route: IVP; Site: right antecubital; tr6 18:11 Follow up: Response: No adverse reaction; Pain is decreased tr6 17:15 Drug: Ativan (LORazepam) 1 mg {Note: given during seizure.} Route: IVP; Site: right tr6 antecubital; 18:12 Follow up: Response: No adverse reaction; Other tr6 17:17 Drug: Keppra (levETIRAcetam) 1000 mg Route: IV; Rate: calculated rate; Site: right tr6 antecubital; 18:12 Follow up: Response: No adverse reaction; IV Status: Completed infusion; IV Intake: tr6 100ml Disposition: 19:24 Co-signature as Attending Physician, Matt Urias MD I agree with the assessment and kdr plan of care. Disposition Summary: 04/05/21 17:48 Discharge Ordered Location: Home jmm Condition: Stable jmm Diagnosis - Cervical Radiculopathy jmm - Arm Pain jmm - Seizure jmm Followup: jmm - With: Jules Stack MD - When: 2 - 3 days - Reason: Recheck today's complaints, Continuance of care, Re-evaluation by your physician Discharge Instructions: - Discharge Summary Sheet jmm - Cervical Radiculopathy jmm - Seizure, Adult jmm Forms: - Medication Reconciliation Form jmm - Thank You Letter jmm - Antibiotic Education jmm - Prescription Opioid Use jmm - Work release form eb Prescriptions: - Medrol (Shilo) 4 mg Oral Tablets, Dose Pack - take 1 tablet by ORAL route as directed - follow package instructions; 1 jmm packet; Refills: 0, Product Selection Permitted - orphenadrine citrate 100 mg Oral Tablet Sustained Release - take 1 tablet by ORAL route 2 times per day As needed; 20 tablet; Refills: 0, jmm Product Selection Permitted Signatures: Dispatcher [employer] Matt Jaquez MD MD kdr Mickail, Joel, PA PA jmm Ana Nogueira, RN RN aa5 Monik Rushing RN RN tr6
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
[2021-04-05 19:48] VITALS: TEMP 98.2
[2021-04-05 19:49] VITALS: O2SAT 98
[2021-04-05 19:51] VITALS: BP 156/95
== END 2021-04-05 18:48 | disposition home or self-care (01) ==
LOC: ER 12:47
DX: M54.12 Radiculopathy, cervical region (principal); R56.9 Unspecified convulsions; I10 Essential (primary) hypertension; F17.210 Nicotine dependence, cigarettes, uncomplicated; Z88.5 Allergy status to narcotic agent; Z91.018 Allergy to other foods
CPT/HCPCS: 70450; 72125; 96365; 96375; 99284; J1953; J2405; J3360

== ENCOUNTER 2021-07-17 09:30 | Emergency (ER) | payer SELFPAY ==
--- OUTSIDE RECORDS SUMMARY | 2021-07-17 09:35 | XMS REPORT | Continuity of Care Document ---
:1970 Author Organization [facility] t Address [address] [place] [address] Care Team Providers Name Role Phone PCP, DOES NOT HAVE A Primary Care Physician Unavailable OTONIEL Attending Clinician Unavailable Carlito Grahami Attending Clinician Unavailable Otoniel ELIZONDO Attending Clinician Doctor Unassigned, Name Attending Clinician Unavailable Brandy CAMPOS Attending Clinician Unavailable Palmer BRONSONP Attending Clinician Deo SEISMOGRAPH OBSERVER Attending Clinician Unknown Attending Clinician Unavailable UNKNOWN Attending Clinician Unavailable Benjamin Rascon Attending Clinician Isrrael ELIZONDO, Gene Attending Clinician Payers Payer Name Policy Type Policy Number Effective Date Expiration Date S ource Problems Condition Condition Condition Status Onset Resolution Last Treating Co mments Source Name Details Category Date Date Treatment Clinician Date Bipolar Bipolar Disease Active Univers disorder, disorder, 3-11 [place] remission, remission, 00 Me dical most most Branch recent recent episode episode manic manic Bilateral Bilateral Disease Active Uni vers acute acute 3-11 ity of otitis otitis 00:00: [place] media, media, 00 Medical recurrence recurrence Br anch not not specified, specified, unspecifie unspecifie d otitis d otitis media type media type Lumbar Lumbar Disease Active Univers spinal spinal 3-11 ity of stenosis stenosis 00:00: [place] [facility] Right-side Right-side Disease Active U nivers d low back d low back 3-11 it y of pain with pain with 00:[place] sciatica, sci[place], 00 Medi kwame sciatica sciatica Branch laterality laterality unspecifie unspecifie d d Generalize Generalize Disease Active U nivers d anxiety d anxiety 3-11 ity of disorder disorder 00:00: [place] [facility] Agoraphobi Agoraphobi Disease Active U nivers a a 3-11 ity of 00:00: [place] [facility] Bipolar Bipolar Disease Active Univers disorder, disorder, 3 it[place] of in partial in partial [place] remission, remission, 00 Me dical most most Branch recent recent episode episode manic manic 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 3 it y of disorder disorder 00:00: [place] [facility] Breast Breast Disease Active Univers mass, left mass, left 3- it y of 00:00: [place] [facility] Anxiety Anxiety Disease Active Univers 3- ity of 00:00: Medical Branch Lower back Lower back Disease Active U nivers pain pain 3- ity of 00:00: Medical Branch High blood High blood Disease Active U nivers pressure pressure 3- ity of 00:00: Medical [facility] COPD COPD Disease Active Univers (chronic (chronic 3- ity of obstructiv obstructiv 00:00: [place] e e 00 Medical pulmonary pulmonary Bran ch disease) disease) Obesity Obesity Disease Active Univers 3- ity of 00:00: [place] 00 Medical Branch Allergies, Adverse Reactions, Alerts Allergy Allergy Status Severity Reaction(s) Onset Inactive Treating Comm ents Source Name Type Date Date Clinician Fluoxeti Propensi Active Unknown - Uni vers ne ty to See comments 03-25 ity of adverse 00:00: [place] reaction 00 Medical s Branch FLUOXETI DRUG Active Unknown-Cmnt Un lois NE INGREDI 03-25 ity of 00:00: [place] 00 Medical Branch DICLOFEN DRUG Active HYPERTENSION 2016-0 Un lois AC INGREDI 11-20 ity of 00:00: [place] 00 Medical Branch Diclofen Propensi Active Hypertension Univers ac ty to 11-20 ity of adverse 00:00: [place] reaction 00 Medical s Branch GREEN DRUG Active Med Other-Cmnt Univer s TEA INGREDI 08-10 ity of 00:00: [place] 00 Medical Branch Green Propensi Active Other - See Seizures U nivers Tea ty to comments 08-10 ity of adverse 00:00: [place] reaction 00 Medical s to Branch drug FLUOXETI DRUG Active Hives Univers NE HCL INGREDI 03-19 ity of 00:00: [place] 00 Medical Branch Fluoxeti Propensi Active Hives Univer s ne Hcl ty to 03-19 ity of adverse 00:00: [place] reaction 00 Medical s Branch Social History Social Habit Start Date Stop Date Quantity Comments Source History of tobacco Cigar Smoker Univ ersity of use [facility] Exposure to Not sure [place] of SARS-CoV-2 (event) [facility] Alcohol intake 2021-03-21 2021-03-21 0 /d University of 00:00:00 00:00:00 [facility] Cigarettes smoked 2021-03-14 2021-03-14 Univers ity of current (pack per 00:00:00 00:00:00 ) - Reported Branch Cigarette 2021-03-14 2021-03-14 University of pack-years 00:00:00 00:00:00 [facility] Tobacco use and 2021-03-14 2021-03-14 Never used Universit y of exposure 00:00:00 00:00:00 [facility] Sex [birth year] Universit y of 00:00:00 00:00:00 [facility] Smoking Status Start Date Stop Date Source Current every day smoker 2021-03-14 00:00:00 Uni versity of [facility] Medications Ordered Filled Start Stop Current Ordering [...] y
Durat ion of Therapy: 7 days levoFLOXaci 2020- No 500mg 500 mg, U [...] 00 :00 dose, Sat Medical 03/16/21 at [place] 2100, STAT ondansetron 2020- No 4mg 4 mg, Slow Univers (ZOFRAN 03-17 IV Push, ity of (PF)) 01:58: 02:12 ONCE, 1 [place] injection 4 00 :00 dose, Sat Med ical mg 03/16/21 at Branch 2100, MICHAEL morpHINE 2020- No 4mg 4 mg, Slow [...] Medica l mg(2.5 mg 03/16/21 at Bran ch base)/3 mL 2100, MICHAEL nebulizer solution 3 mL NaCl 0.9% 0 2020- No 1000mL at 999 Uni vers (NS) IV 03-17 08-29 mL/hr, ity of infusion 01:57: 03:07 Intravenou [place] 1,000 mL 00 :00 s, ONCE, 1 Medic al dose, Sat Branch 03/16/21 at 2100, MICHAEL methylpredn 2020-0 2020- No 125mg 125 mg, U nivers isolone sod 03-17 Slow IV ity of succ 01:57: 02:11 [place], [place] (SOLU-MEDRO 00 :00 ONCE, 1 Medic al L) dose, Sat Branch injection 03/16/21 at 125 mg 2100, STAT ipratropium 2020-0 2020- No 3mL 3 mL, Univ ers -albuteroL 03-17 Inhalation it y of (DUONEB) 01:57: 02:15 , ONCE, 1 [place] 0.5 mg-3 00 :00 dose, Sat Medica l mg(2.5 mg 03/16/21 at Bran ch base)/3 mL 2100, MICHAEL nebulizer solution 3 mL ipratropium 2020-0 2020- No 3mL 3 mL, Univ ers -albuteroL 03-17 Inhalation it y of (DUONEB) 01:57: 02:15 , ONCE, 1 [place] 0.5 mg-3 00 :00 dose, Sat Medica l mg(2.5 mg 03/16/21 at Bran ch base)/3 mL 2100, MICHAEL nebulizer solution 3 mL NaCl 0.9% 0 2020- No 1000mL at 999 Uni vers (NS) IV 03-17 08-29 mL/hr, ity of infusion 01:57: 03:07 Intravenou [place] 1,000 mL 00 :00 s, ONCE, 1 Medic al dose, Sat Branch 03/16/21 at 2100, MICHAEL methylpredn 2020-0 2020- No 125mg 125 mg, U nivers isolone sod 03-17 Slow IV ity of succ 01:57: 02:11 [place], [place] (SOLU-MEDRO 00 :00 ONCE, 1 Medic al L) dose, Sat Branch injection 03/16/21 at 125 mg 2099, STAT ipratropium 2020- No 3mL 3 mL, Univ ers -albuteroL 03-17 Inhalation it y of (DUONEB) 01:57: 02:15 , ONCE, 1 [place] 0.5 mg-3 00 :00 dose, Sat Medica l mg(2.5 mg 03/16/21 at Bran ch base)/3 mL 2099, MICHAEL nebulizer solution 3 mL levoFLOXaci 2020- No [id number] 500mg Take 1 Univers n 500 mg 03-17 tablet by ity o f tablet 00:00: 04:59 mouth [place] 00 :00 daily for Medical 6 days. [place] levoFLOXaci 2020- No [id number] 500mg Take 1 Univers n 500 mg 03-17 tablet by ity o f tablet 00:00: 04:59 mouth [place] 00 :00 daily for Medical 6 days. [place] levoFLOXaci 2020- No [id number] 500mg Take 1 Univers n 500 mg 03-17 tablet by ity o f tablet 00:00: 04:59 mouth [place] 00 :00 daily for Medical 6 days. [place] levoFLOXaci 2020- No [id number] 500mg Take 1 Univers n 500 mg 03-17 tablet by ity o f tablet 00:00: 04:59 mouth [place] 00 :00 daily for Medical 6 days. [place] predniSONE 2020- No [id number] 30mg Take 3 Univers 10 mg 03-17 tablets by ity of tablet 00:00: 04:59 mouth [place] 00 :00 daily for Medical 4 days. Branch predniSONE 2020- No [id number] 30mg Take 3 Univers 10 mg 03-17 tablets by ity of tablet 00:00: 04:59 mouth [place] 00 :00 daily for Medical 4 days. Branch predniSONE 2020- No [id number] 30mg Take 3 Univers 10 mg 03-17 tablets by ity of tablet 00:00: 04:59 mouth [place] 00 :00 daily for Medical 4 days. Branch predniSONE 2020- No [id number] 30mg Take 3 Univers 10 mg 03-17 tablets by ity of tablet 00:00: 04:59 mouth [place] 00 :00 daily for Medical 4 days. [place] albuterol 2020- No [id number] 4{puff} 4 Puff, Univers (VENTOLIN) 03-15 Inhalation it y of inhaler 4 01:45: 00:44 , ONCE, 1 [place] Puff 00 :00 dose, [place] Medical 03/14/21 at Branch 2044, Routine dexamethaso 2020- No [id number] 10mg 10 mg, Univers ne 03-15 Intramuscu ity of (DECADRON) 01:45: 00:45 lar, ONCE, [place] injection 00 :00 1 dose, Medical 10 mg [facility] 03/14/21 at 2044, Routine albuterol Yes [id number] 2.5mg Inhale 3 Univers 2.5 mg /3 8-27 mL every 4 ity of mL (0.083 00:00: (four) [place] %) 00 hours as Medical nebulizer needed for Bran ch solution Wheezing or Shortness of Breath. albuterol Yes [id number] 2.5mg Inhale 3 Univers 2.5 mg /3 8-27 mL every 4 ity of mL (0.083 00:00: (four) [place] %) 00 hours as Medical nebulizer needed for Bran ch solution Wheezing or Shortness of Breath. albuterol Yes [id number] 2.5mg Inhale 3 Univers 2.5 mg /3 8-27 mL every 4 ity of mL (0.083 00:00: (four) [place] %) 00 hours as Medical nebulizer needed for Bran ch solution Wheezing or Shortness of Breath. albuterol Yes [id number] 2.5mg Inhale 3 Univers 2.5 mg /3 8-27 mL every 4 ity of mL (0.083 00:00: (four) [place] %) 00 hours as Medical nebulizer needed for Bran ch solution Wheezing or Shortness of Breath. albuterol Yes [id number] 2.5mg Inhale 3 Univers 2.5 mg /3 8-27 mL every 4 ity of mL (0.083 00:00: (four) [place] %) 00 hours as Medical nebulizer needed for Bran ch solution Wheezing or Shortness of Breath. albuterol 2020-0 Yes [id number] 2.5mg Inhale 3 Univers 2.5 mg /3 8-27 mL every 4 ity of mL (0.083 00:00: (four) [place] %) 00 hours as Medical nebulizer needed for Bran ch solution Wheezing or Shortness of Breath. albuterol 2020-0 Yes [id number] 2.5mg Inhale 3 Univers 2.5 mg /3 8-27 mL every 4 ity of mL (0.083 00:00: (four) [place] %) 00 hours as Medical nebulizer needed for Bran ch solution Wheezing or Shortness of Breath. albuterol 2020-0 Yes [id number] 2.5mg Inhale 3 Univers 2.5 mg /3 8-27 mL every 4 ity of mL (0.083 00:00: (four) [place] %) 00 hours as Medical nebulizer needed for Bran ch solution Wheezing or Shortness of Breath. levETIRAcet 2020- No 1000mg 1,000 mg, Univers am (KEPPRA) 02-19 08-03 IV ity of in NACL 20:15: 19:30 [place], [place] (ISO-OS) 00 :00 ONCE, 1 Medical 1,000 dose, Tue Branch mg/100 mL 02/19/21 at [facility] 1515, Administer over 15 Minutes, 100 mL levetiracet 0 Yes Take by Un lois am (KEPPRA -03 mouth. ity of ORAL) 19:45: [address] Branch levetiracet 2020-0 Yes Take by Un lois am (KEPPRA 8-03 mouth. ity of ORAL) 19:45: [address] Branch levetiracet 2020-0 Yes Take by Un lois am (KEPPRA 8-03 mouth. ity of ORAL) 19:45: [address] Branch levetiracet 2020-0 Yes Take by Un lois am (KEPPRA 8-03 mouth. ity of ORAL) 19:45: [address] Branch levetiracet 2021-0 Yes Take by Un lois am (KEPPRA 02-19 mouth. ity of ORAL) 19:45: [address] levetiracet Yes Take by Un lois am (KEPPRA 02-19 mouth. ity of ORAL) 19:45: [address] LISINOPRIL- 2020- No Take by U nivers HYDROCHLORO 02-19 mouth. ity o f THIAZIDE 19:41: 00:00 [place] ORAL 15 :00 [facility] Branch dicyclomine 2020- No 20mg 20 mg, Uni vers (BENTYL) 02-19 Intramuscu ity of injection 19:15: 19:04 lar, ONCE, [place] 20 mg 00 :00 1 dose, Medical 02/19/21 Branch at 1415, Routine proMETHazin 2020- No 25mg 25 mg, IV Univers e 02-19 Piggyback, ity of (PHENERGAN) 19:15: 19:03 ONCE, 1 [place] 25 mg in 00 :00 dose, Tue Medica l NaCl 0.9% 02/19/21 at [facility] h (NS) 50 mL 1415, 50 piggyback mL morpHINE 2020- No 4mg 4 mg, Slow Un lois injection 4 02-19 IV Push, ity of mg 17:15: 17:05 ONCE, 1 [place] 00 :00 dose, Tue Medical 02/19/21 at Branch 1215, STAT NaCl 0.9% 2020- No 1000mL at 999 Uni vers (NS) bolus 02-19 mL/hr, ity of infusion 17:15: 19:04 1,000 mL, [place] as 1,000 mL 00 :00 IV Medical Infusion, Branch ONCE, 1 dose, 02/19/21 at 1215, STAT ondansetron 2020- No 4mg 4 mg, Slow Univers (ZOFRAN 02-19 IV Push, ity of (PF)) 17:00: 15:59 ONCE, 1 [place] injection 4 00 :00 dose, Tue Med ical mg 02/19/21 at Branch 1200, MICHAEL iopamidol 2020- No [id number] 100mL 100 mL, Univers (ISOVUE 02-19 08-03 Intravenou ity o f 370-500 mL) 16:35: 16:45 s, ONCE, 1 [place] injection 00 :00 dose, Tue Medic al 100 mL 02/19/21 at Branch 1145, Routine levetiracet 0 Yes Take by Un lois am (KEPPRA 8-03 mouth. ity of ORAL) 14:45: [address] levetiracet 2020-0 Yes Take by Un lois am (KEPPRA 8-03 mouth. ity of ORAL) 14:45: [address] levetiracet 2020-0 Yes Take by Un lois am (KEPPRA 8-03 mouth. ity of ORAL) 14:45: [address] proMETHazin 2020-0 Yes [id number] 25mg Take 1 Univers e 25 mg 8-03 tablet by ity of tablet 00:00: mouth [place] 00 every 6 Medical (six) Branch hours as needed for Nausea and Vomiting (N/V). dicyclomine 2020-0 Yes [id number] 20mg Take 1 Univers 20 mg 8-03 tablet by ity of tablet 00:00: mouth [place] (four) Medical times Branch daily as needed for Abdominal pain. proMETHazin 2020-0 Yes [id number] 25mg Take 1 Univers e 25 mg 8-03 tablet by ity of tablet 00:00: mouth [place] 00 every 6 Medical (six) Branch hours as needed for Nausea and Vomiting (N/V). dicyclomine 2020-0 Yes [id number] 20mg Take 1 Univers 20 mg 8-03 tablet by ity of tablet 00:00: mouth [place] (four) Medical times Branch daily as needed for Abdominal pain. proMETHazin 2020-0 Yes [id number] 25mg Take 1 Univers e 25 mg 8-03 tablet by ity of tablet 00:00: mouth [place] 00 every 6 Medical (six) Branch hours as needed for Nausea and Vomiting (N/V). dicyclomine 2020-0 Yes [id number] 20mg Take 1 Univers 20 mg 8-03 tablet by ity of tablet 00:00: mouth [place] (four) Medical times Branch daily as needed for Abdominal pain. proMETHazin 1-0 Yes [id number] 25mg Take 1 Univers e 25 mg 8-03 tablet by ity of tablet 00:00: mouth [place] 00 every 6 Medical (six) Branch hours as needed for Nausea and Vomiting (N/V). dicyclomine 2020-0 Yes [id number] 20mg Take 1 Univers 20 mg 8-03 tablet by ity of tablet 00:00: mouth 4 00 (four) Medical times Branch daily as needed for Abdominal pain. proMETHazin 2020-0 Yes [id number] 25mg Take 1 Univers e 25 mg 8-03 tablet by ity of tablet 00:00: mouth [place] 00 every 6 Medical (six) Branch hours as needed for Nausea and Vomiting (N/V). dicyclomine 2020-0 Yes [id number] 20mg Take 1 Univers 20 mg 8-03 tablet by ity of tablet 00:00: mouth 4 00 (four) Medical times Branch daily as needed for Abdominal pain. proMETHazin 2020-0 Yes [id number] 25mg Take 1 Univers e 25 mg 8-03 tablet by ity of tablet 00:00: mouth [place] 00 every 6 Medical (six) Branch hours as needed for Nausea and Vomiting (N/V). dicyclomine 2020-0 Yes [id number] 20mg Take 1 Univers 20 mg 8-03 tablet by ity of tablet 00:00: mouth 4 00 (four) Medical times Branch daily as needed for Abdominal pain. proMETHazin 2020-0 Yes [id number] 25mg Take 1 Univers e 25 mg 8-03 tablet by ity of tablet 00:00: mouth [place] 00 every 6 Medical (six) Branch hours as needed for Nausea and Vomiting (N/V). dicyclomine 2021-0 Yes [id number] 20mg Take 1 Univers 20 mg 8-03 tablet by ity of tablet 00:00: mouth 4 00 (four) Medical times Branch daily as needed for Abdominal pain. proMETHazin 2021-0 Yes [id number] 25mg Take 1 Univers e 25 mg 8-03 tablet by ity of tablet 00:00: mouth [place] 00 every 6 Medical (six) Branch hours as needed for Nausea and Vomiting (N/V). dicyclomine 2021-0 Yes [id number] 20mg Take 1 Univers 20 mg 8-03 tablet by ity of tablet 00:00: mouth 4 00 (four) Medical times Branch daily as needed for Abdominal pain. proMETHazin Yes [id number] 25mg Take 1 Univers e 25 mg 8-03 tablet by ity of tablet 00:00: mouth [place] 00 every 6 Medical (six) Branch hours as needed for Nausea and Vomiting (N/V). dicyclomine Yes [id number] 20mg Take 1 Univers 20 mg 8-03 tablet by ity of tablet 00:00: mouth 4 00 (four) Medical times Branch daily as needed for Abdominal pain. ZONISAMIDE Yes TAKE 1 Unive rs 100 mg -29 CAPSULE BY ity of capsule 00:00: MOUTH 00 TWICE A Medical DAY Branch ZONISAMIDE 2020- No TAKE 1 Univ ers 100 mg 4-29 08- CAPSULE BY ity of capsule 00:00: 00:00 MOUTH [place] 00 :00 TWICE A Medical DAY Branch ondansetron Yes 4mg Take 4 mg U nivers (ZOFRAN) 4 7-24 by mouth ity o f mg tablet 20:05: every 8 [place] (eight) Medical hours as Branch needed. pantoprazol Yes 40mg Take 40 mg Univers e 7-24 by mouth ity of (PROTONIX) 20:05: daily. [place] 40 mg EC Medical tablet Branch ondansetron Yes 4mg Take 4 mg U nivers (ZOFRAN) 4 7-24 by mouth ity o f mg tablet 20:05: every 8 [place] (eight) Medical hours as Branch needed. pantoprazol Yes 40mg Take 40 mg Univers e 7-24 by mouth ity of (PROTONIX) 20:05: daily. [place] 40 mg EC Medical tablet Branch LISINOPRIL- Yes Take by Un lois HYDROCHLORO 7-24 mouth. ity of THIAZIDE 20:05: [place] ORAL Medical Branch ondansetron Yes 4mg Take 4 mg U nivers (ZOFRAN) 4 7-24 by mouth ity o f mg tablet 20:05: every 8 [place] (eight) Medical hours as Branch needed. pantoprazol 2018-0 Yes 40mg Take 40 mg Univers e 7-24 by mouth ity of (PROTONIX) 20:05: daily. [place] 40 mg EC 01 Medical tablet Branch ondansetron 2018-0 Yes 4mg Take 4 mg U nivers (ZOFRAN) 4 7-24 by mouth ity o f mg tablet 20:05: every 8 [place] (eight) Medical hours as Branch needed. pantoprazol 2018-0 Yes 40mg Take 40 mg Univers e 7-24 by mouth ity of (PROTONIX) 20:05: daily. [place] 40 mg EC 01 Medical tablet Branch ondansetron 2018-0 Yes 4mg Take 4 mg U nivers (ZOFRAN) 4 7-24 by mouth ity o f mg tablet 20:05: every 8 [place] (eight) Medical hours as Branch needed. pantoprazol 2018-0 Yes 40mg Take 40 mg Univers e 7-24 by mouth ity of (PROTONIX) 20:05: daily. [place] 40 mg EC Medical tablet Branch ondansetron 2018-0 Yes 4mg Take 4 mg U nivers (ZOFRAN) 4 7-24 by mouth ity o f mg tablet 20:05: every 8 [place] (eight) Medical hours as Branch needed. pantoprazol 2018-0 Yes 40mg Take 40 mg Univers e 7-24 by mouth ity of (PROTONIX) 20:05: daily. [place] 40 mg EC 01 Medical tablet Branch ondansetron 2018-0 Yes 4mg Take 4 mg U nivers (ZOFRAN) 4 7-24 by mouth ity o f mg tablet 20:05: every 8 [place] (eight) Medical hours as Branch needed. pantoprazol 2018-0 Yes 40mg Take 40 mg Univers e 7-24 by mouth ity of (PROTONIX) 20:05: daily. [place] 40 mg EC 01 Medical tablet Branch lisinopril- 2018-0 Yes 1{tbl} Take 1 Un lois hydrochloro 7-24 tablet by ity of thiazide 20:03: mouth [place] 20-12.5 mg 30 daily. Medical per tablet Branch lisinopril- 2018-0 Yes 1{tbl} Take 1 Un lois hydrochloro 7-24 tablet by ity of thiazide 20:03: mouth [place] 20-12.5 mg 30 daily. Medical per tablet Branch lisinopril- 2018-0 Yes 1{tbl} Take 1 Un lois hydrochloro [...] Medical OIL) 1,000 Branch mg capsule omega-3 2018-0 Yes 1g Take 1 g Univer s fatty 7-24 by mouth ity of acids-vitam 19:59: daily. [place] in E (FISH 52 Medical OIL) 1,000 Branch mg capsule omega-3 2018 Yes 1g Take 1 g Univer s fatty 7-24 by mouth ity of acids-vitam 19:59: daily. [place] in E (FISH 52 Medical OIL) 1,000 Branch mg capsule MULTIVITAMI Yes 1{tbl} Take 1 Tab Univers N ORAL 7-24 by mouth ity of 19:58: daily. [address] Branch loratadine Yes Take by Uni vers (CLARITIN 7-24 mouth ity of LIQUI-GEL) 19:58: daily. [place] 10 mg 14 Medical capsule Branch MULTIVITAMI Yes 1{tbl} Take 1 Tab Univers N ORAL 7-24 by mouth ity of 19:58: daily. [address] loratadine Yes Take by Uni vers (CLARITIN 7-24 mouth ity of LIQUI-GEL) 19:58: daily. [place] 10 mg 14 Medical capsule Branch MULTIVITAMI Yes 1{tbl} Take 1 Tab Univers N ORAL 7-24 by mouth ity of 19:58: daily. [address] loratadine Yes Take by Uni vers (CLARITIN 7-24 mouth ity of LIQUI-GEL) 19:58: daily. [place] 10 mg 14 Medical capsule Branch MULTIVITAMI Yes 1{tbl} Take 1 Tab Univers N ORAL 7-24 by mouth ity of 19:58: daily. [address] loratadine Yes Take by Uni vers (CLARITIN 7-24 mouth ity of LIQUI-GEL) 19:58: daily. [place] 10 mg 14 Medical capsule Branch MULTIVITAMI Yes 1{tbl} Take 1 Tab Univers N ORAL 7-24 by mouth ity of 19:58: daily. [address] loratadine 0 Yes Take by Uni vers (CLARITIN 7-24 mouth ity of LIQUI-GEL) 19:58: daily. [place] 10 mg 14 Medical capsule Branch MULTIVITAMI Yes 1{tbl} Take 1 Tab Univers N ORAL 7-24 by mouth ity of 19:58: daily. [place] 14 Medical Branch loratadine 2017-0 Yes Take by Uni vers (CLARITIN 7-24 mouth ity of LIQUI-GEL) 19:58: daily. [place] 10 mg 14 Medical capsule Branch MULTIVITAMI 0 Yes 1{tbl} Take 1 Tab Univers N ORAL 7-24 by mouth ity of 19:58: daily. [place] [address] Medical Branch loratadine 2017-0 Yes Take by Uni vers (CLARITIN 7-24 mouth ity of LIQUI-GEL) 19:58: daily. [place] 10 mg 14 Medical capsule Branch ondansetron 0 Yes 4mg Take 4 mg U nivers (ZOFRAN) 4 7-24 by mouth ity o f mg tablet 15:05: every 8 [place] [address] (eight) Medical hours as Branch needed. pantoprazol 2017-0 Yes 40mg Take 40 mg Univers e 7-24 by mouth ity of (PROTONIX) 15:05: daily. [place] 40 mg EC Medical tablet Branch ondansetron Yes 4mg Take 4 mg U nivers (ZOFRAN) 4 7-24 by mouth ity o f mg tablet 15:05: every 8 [place] [address] (eight) Medical hours as Branch needed. pantoprazol 2017-0 Yes 40mg Take 40 mg Univers e 7-24 by mouth ity of (PROTONIX) 15:05: daily. [place] 40 mg EC 01 Medical tablet Branch ondansetron 0 Yes 4mg Take 4 mg U nivers (ZOFRAN) 4 7-24 by mouth ity o f mg tablet 15:05: every 8 [place] [address] (eight) Medical hours as Branch needed. pantoprazol 2017-0 Yes 40mg Take 40 mg Univers e 7-24 by mouth ity of (PROTONIX) 15:05: daily. [place] 40 mg EC 01 Medical tablet Branch lisinopril- 2017-0 Yes 1{tbl} Take 1 Un lois hydrochloro 7-24 tablet by ity of thiazide 15:03: mouth [place] 20-12.5 mg 30 daily. Medical per tablet Branch lisinopril- 2017-0 Yes 1{tbl} Take 1 Un lois hydrochloro 7-24 tablet by ity of thiazide 15:03: mouth [place] 20-12.5 mg 30 daily. Medical per tablet Branch lisinopril- 0 Yes 1{tbl} Take 1 Un lois hydrochloro 7-24 tablet by ity of thiazide 15:03: mouth [place] 20-12.5 mg 30 daily. Medical per tablet Branch omega-3 Yes 1g Take 1 g Univer s fatty 7-24 by mouth ity of acids-vitam 14:59: daily. [place] in E (FISH 52 Medical OIL) 1,000 Branch mg capsule omega-3 Yes 1g Take 1 g Univer s fatty 7-24 by mouth ity of acids-vitam 14:59: daily. [place] in E (FISH 52 Medical OIL) 1,000 Branch mg capsule omega-3 Yes 1g Take 1 g Univer s fatty 7-24 by mouth ity of acids-vitam 14:59: daily. [place] in E (FISH 52 Medical OIL) 1,000 Branch mg capsule MULTIVITAMI Yes 1{tbl} Take 1 Tab Univers N ORAL 7-24 by mouth ity of 14:58: daily. [address] loratadine Yes Take by Uni vers (CLARITIN 7-24 mouth ity of LIQUI-GEL) 14:58: daily. [place] 10 mg 14 Medical capsule Branch MULTIVITAMI Yes 1{tbl} Take 1 Tab Univers N ORAL 7-24 by mouth ity of 14:58: daily. [address] loratadine Yes Take by Uni vers (CLARITIN 7-24 mouth ity of LIQUI-GEL) 14:58: daily. [place] 10 mg 14 Medical capsule Branch MULTIVITAMI Yes 1{tbl} Take 1 Tab Univers N ORAL 7-24 by mouth ity of 14:58: daily. [address] Branch loratadine Yes Take by Uni vers (CLARITIN 7-24 mouth ity of LIQUI-GEL) 14:58: daily. [place] 10 mg 14 Medical capsule Branch proMETHazin Yes 25mg Take 1 Univ ers e 5-04 tablet by ity of (PHENERGAN) 00:00: mouth [place] 25 mg 00 every 6 Medical tablet (six) Branch hours as needed for Nausea and Vomiting (N/V). proMETHazin 2020- No 25mg Take 1 Uni vers e 5-04 08-03 tablet by ity of (PHENERGAN) 00:00: 00:00 mouth [place] 25 mg 00 :00 every 6 Medical tablet (six) Branch hours as needed for Nausea and Vomiting (N/V). carvedilol 2016-0 Yes 6.25mg Take 1 Tab Univers (COREG) 3-03 by mouth 2 ity of 6.25 mg 00:00: (two) [place] tablet 00 times Medical daily with Branch meals. amLODIPine 2015-0 Yes 10mg Take 1 Tab U nivers (NORVASC) 3-03 by mouth ity of 10 mg 00:00: daily. [place] tablet 00 Medical Branch lisinopril 2016-0 Yes 40mg Take 1 Tab U nivers (PRINIVIL,Z 3-03 by mouth ity of ESTRIL) 40 00:00: daily. [place] mg tablet 00 Medical Branch carvedilol 2015-0 Yes 6.25mg Take 1 Tab Univers (COREG) [...] [place] mg tablet 00 Medical Branch carvedilol 2015-0 Yes 6.25mg Take 1 Tab Univers (COREG) 3-03 by mouth 2 ity of 6.25 mg 00:00: (two) [place] tablet 00 times Medical daily with Branch meals. amLODIPine 2015-0 Yes 10mg Take 1 Tab U nivers (NORVASC) 3-03 by mouth ity of 10 mg 00:00: daily. [place] tablet 00 Medical Branch lisinopril 2016-0 Yes 40mg Take 1 Tab U nivers (PRINIVIL,Z 3-03 by mouth ity of ESTRIL) 40 00:00: daily. [place] mg tablet 00 Medical Branch carvedilol 2015-0 Yes 6.25mg Take 1 Tab Univers (COREG) 3-03 by mouth 2 ity of 6.25 mg 00:00: (two) [place] tablet 00 times Medical daily with Branch meals. amLODIPine 2015-0 Yes 10mg Take 1 Tab U nivers (NORVASC) 3-03 by mouth ity of 10 mg 00:00: daily. [place] tablet 00 Medical Branch lisinopril 2016-0 Yes 40mg Take 1 Tab U nivers (PRINIVIL,Z 3-03 by mouth ity of ESTRIL) 40 00:00: daily. [place] mg tablet 00 Medical Branch carvedilol 2016-0 Yes 6.25mg Take 1 Tab Univers (COREG) 3-03 by mouth 2 ity of 6.25 mg 00:00: (two) [place] tablet 00 times Medical daily with Branch meals. amLODIPine 2016-0 Yes 10mg Take 1 Tab U nivers (NORVASC) 3-03 by mouth ity of 10 mg 00:00: daily. [place] tablet 00 Medical Branch lisinopril 2016-0 Yes 40mg Take 1 Tab U nivers (PRINIVIL,Z 3-03 by mouth ity of ESTRIL) 40 00:00: daily. [place] mg tablet 00 Medical Branch carvedilol 2015-0 Yes 6.25mg Take 1 Tab Univers (COREG) 3-03 by mouth 2 ity of 6.25 mg 00:00: (two) [place] tablet 00 times Medical daily with Branch meals. amLODIPine 2016-0 Yes 10mg Take 1 Tab U nivers (NORVASC) 3-03 by mouth ity of 10 mg 00:00: daily. [place] tablet 00 Medical Branch lisinopril 2015-0 Yes 40mg Take 1 Tab U nivers (PRINIVIL,Z 3-03 by mouth ity of ESTRIL) 40 00:00: daily. [place] mg tablet 00 Medical Branch carvedilol 2015-0 Yes 6.25mg Take 1 Tab Univers (COREG) 3-03 by mouth 2 ity of 6.25 mg 00:00: (two) [place] tablet 00 times Medical daily with Branch meals. amLODIPine 2016-0 Yes 10mg Take 1 Tab U nivers (NORVASC) 3-03 by mouth ity of 10 mg 00:00: daily. [place] tablet 00 Medical Branch lisinopril 2016-0 Yes 40mg Take 1 Tab U nivers (PRINIVIL,Z 3-03 by mouth ity of ESTRIL) 40 00:00: daily. [place] mg tablet 00 Medical Branch carvedilol 2015-0 Yes 6.25mg Take 1 Tab Univers (COREG) 3-03 by mouth 2 ity of 6.25 mg 00:00: (two) [place] tablet 00 times Medical daily with Branch meals. amLODIPine 2016-0 Yes 10mg Take 1 Tab U nivers (NORVASC) 3-03 by mouth ity of 10 mg 00:00: daily. [place] tablet 00 Medical Branch lisinopril 2016-0 Yes 40mg Take 1 Tab U nivers (PRINIVIL,Z 3-03 by mouth ity of ESTRIL) 40 00:00: daily. [place] mg tablet 00 Medical Branch carvedilol 2015-0 Yes 6.25mg Take 1 Tab Univers (COREG) [...] 40 00:00: daily. [place] mg tablet 00 [facility] Immunizations Ordered Filled Immunization Date Status Comments [facility] e Immunization Name Name SARS-COV-2 COVID-19 2021-05-24 Completed Unive rsity of PFIZER VACCINE 00:00:00 [facility] SARS-COV-2 COVID-19 2021-05-03 Completed Unive rsity of PFIZER VACCINE 00:00:00 [facility] SARS-COV-2 COVID-19 2021-05-03 Completed Unive rsity of PFIZER VACCINE 00:00:00 [facility] Vital Signs Vital Name Observation Time Observation Value Comments Source Systolic blood 2021-03-17 03:00:00 117 mm[Hg] Univer sity of pressure [place] [facility] Diastolic blood 2021-03-17 03:00:00 76 mm[Hg] Unive rsity of pressure [place] [facility] Heart rate 2021-03-17 03:00:00 104 /min [facility] [place] [facility] Respiratory rate 2021-03-17 03:00:00 28 /min Univ ers[facility] [place] [facility] Oxygen saturation in 2021-03-17 03:00:00 96 /min University of Arterial blood by [facility] Pulse oximetry Branch Body temperature 2021-03-17 00:39:00 37.11 Radha [facility] ersity of [place] [facility] Body height 2021-03-17 00:39:00 160 cm [facility] [place] [facility] Body weight 2021-03-17 00:39:00 58.968 kg [facility] [place] [facility] BMI 2021-03-17 00:39:00 23.03 kg/m2 [facility] [place] [facility] Systolic blood 2021-03-15 00:14:00 149 mm[Hg] Univer sity of pressure [place] [facility] Diastolic blood 2021-03-15 00:14:00 78 mm[Hg] Unive rsity of pressure [place] [facility] Heart rate 2021-03-15 00:14:00 100 /min [facility] [place] [facility] Body temperature 2021-03-15 00:14:00 37.33 Radha [facility] [place] [facility] Respiratory rate 2021-03-15 00:14:00 24 /min [facility] [place] [facility] Body height 2021-03-15 00:14:00 160 cm [facility] [place] [facility] Body weight 2021-03-15 00:14:00 58.968 kg [facility] [place] [facility] BMI 2021-03-15 00:14:00 23.03 kg/m2 [facility] [place] [facility] Oxygen saturation in 2021-03-15 00:14:00 98 /min University of Arterial blood by [facility] Pulse oximetry Branch Systolic blood 2021-02-19 18:00:00 131 mm[Hg] Univer sity of pressure [place] [facility] Diastolic blood 2021-02-19 18:00:00 80 mm[Hg] Unive rsity of pressure [facility] Heart rate 2021-02-19 18:00:00 83 /min [facility] Respiratory rate 2021-02-19 18:00:00 18 /min [facility] Oxygen saturation in 2021-02-19 18:00:00 100 /min [facility] Arterial blood by [facility] Pulse oximetry [place] Body temperature 2021-02-19 15:47:00 37 Radha [facility] Body height 2021-02-19 15:47:00 160 cm [facility] Body weight 2021-02-19 15:47:00 58.968 kg [facility] BMI 2021-02-19 15:47:00 23.03 kg/m2 [facility] Procedures Procedure Date / Time Performing Clinician Source Performed SARS-COV-2 COVID-19 2021-05-24 14:23:12 Doctor Unassigned, [facility] VACCINE,0.3ML,IM (PFIZER) [place] SARS-COV-2 COVID-19 2021-05-03 14:59:29 Doctor Unassigned, [facility] [place] VACCINE,0.3ML,IM (PFIZER) [facility] EMERGENCY SERVICES 2021-04-16 05:01:00 Doctor Joe, [facility] AGREEMENTS AND [facility] [place] AUTHORIZATIONS URINALYSIS 2021-03-17 03:09:00 [facility] XR CHEST 1 VW 2021-03-17 01:45:07 [facility] TROPONIN I 2021-03-17 01:35:00 [facility] COMP. METABOLIC PANEL 2021-03-17 01:35:00 [facility] ([id number]) [facility] CBC WITH DIFF 2021-03-17 01:35:00 [facility] N-TERMINAL PRO-BNP 2021-03-17 01:35:00 [facility] COVID-19 (ID NOW RAPID 2021-03-17 00:58:00 Brian Ray [facility] TESTING) Medical Branch CONSENT/REFUSAL FOR 2021-03-17 00:32:59 [facility] DIAGNOS[facility] AND TREATMENT [place] COVID-19 (ID NOW RAPID 2021-02-19 17:04:00 [facility]) Medical Branch CT ABDOMEN PELVIS W 2021-02-19 16:41:18 Anali Patel [facility] CONTRAST Medical Branch LIPASE 2021-02-19 15:58:00 Anali Patel [facility] COMP. METABOLIC PANEL 2021-02-19 15:58:00 Anali Patel [facility] ([id number]) Medical Branch CBC WITH DIFF 2021-02-19 15:58:00 [facility] URINALYSIS 2021-02-19 15:58:00 [facility] NOTICE OF PRIVACY 2021-02-19 15:30:46 Doctor Joe [facility] PRACTICES [facility] [place] CONSENT/REFUSAL FOR 2021-02-19 15:30:30 Doctor Joe [facility] DIAGNOSIS AND TREATMENT [facility] Encounters Start End Encounter Admission Attending Care Care Encounter Source Date/Time Date/Time Type Type Clinicians Facility Department ID 2021-05-20 Emergency [facility] [id number] Univers 18:48:04 [facility] 2021-05-20 Emergency [facility] [id number] Univers 12:43:40 [facility] 2021-11-21 2021-11-21 Outpatient R [facility] [id number] Univers 09:40:00 [facility]40[id number] 2021-05-24 2021-05-24 Outpatient R [facility] [id number] Univers 09:30:00 09:30:00 [id number] [facility] 2021-05-24 2021-05-24 Outpatient R SHILPA FREDERICK [facility] [id number] Univers 09:30:00 09:30:[address] [facility] 2021-05-24 2021-05-24 Imm/Inj Vaccine, [facility] [place] [id number] Univers 08:47:51 08:57:51 Visit Shilpa [place] [id number] it[place] [facility] [place] [facility] [id number] [facility] 225 Branch 2021-05-03 2021-05-03 Outpatient R SHILPA FREDERICK [facility] [id number] Univers 09:40:00 09:59:35 ity of [facility] 2021-05-03 2021-05-03 Imm/Inj Vaccine, [facility] [place] [id number] Univers 09:17:43 09:59:35 Visit Shilpa [place] 350.1.13.10 [place] [facility] [id number] [facility] [address] [place] 2021-05-03 2021-05-03 Outpatient R [facility] [id number] Univers 09:40:00 09:40:00 [id number] ity of [facility] 2021-04-16 2021-04-16 Orders Doctor EWELINA [id number] Univers 00:00:00 00:00:00 Only Unassigned, [place] 350.1.13.10 ity of [facility] 4.2.7.2.686 Javier as [phone] [facility] 009 Branch 2021-03-17 2021-03-17 Telephone EWELINA Nava [id number] Univers 00:00:00 00:00:00 Aneatrice [place] 350.1.13.10 ity of [facility] 4.2.7.2.686 Javier as [id number] [facility] 019 Branch 2021-03-16 2021-03-16 Emergency Palmer [facility] 1.2.840.114 [id number] Univers 20:08:00 23:24:00 Fabrice Har[place] 350.1.13.10 i [place] [id number] [facility] 084 Branch 2021-03-14 2021-03-14 Urgent Lydia Desouza [facility] 1.2.840.114 [id number] Univers 18:59:34 20:19:13 Care Unknown, Attending [facility] [address].1.13.[address] [facility] 4.2.7.2.686 Javier as Prem?Blea [id number] Nv dical [address] Medical Office [facility] 2021-03-14 2021-03-14 Outpatient R [facility] [id number] Univers 19:00:00 19:00:00 [id number] [facility] 2021-03-14 2021-03-14 Outpatient R UNKNOWN, [facility] [id number] Univers 19:00:00 19:00:00 [facility] 2021-02-19 2021-02-19 Emergency Patel, [facility] [id number] Univers 10:49:00 14:48:00 Anali Har[place] 350.1.13.10 i [place] [id number] [address] 2019-03-09 2019-03-09 [facility] 1.2.840.114 [id number] 00:00:00 00:00:00 Yehuda Harrell 350.1.13.10 [place] 4.2.7.2.686 Professio [id number] [address] 2019-03-09 2019-03-09 [facility] 1.2.840.114 [id number] Univers 00:00:00 00:00:00 Yehuda Har[place] 350.1.13.10 ity [facility] [place] [phone] [address] Results Test Description Test Time Test Comments Results Result Comments Source URINALYSIS 2021-03-17 03:22:48 Test Item Value Reference Range Interpretation Comme nts APPEARANCE (test code = Hazy Clear A 6980139847) COLOR (test code = 1846030511) Yellow Yellow PH (test code = 3376735769) 4.8-8.0 SP GRAVITY (test code = 1.003-1.030 8328259394) GLU U QUAL (test code = Normal Normal 9939132217) BLOOD (test code = 3730755066) Negative Negative Interference from ascorbic acid may cause false negative results. KETONES (test code = 1674899207) 5 mg/dL Negative A PROTEIN (test code = 2887-8) Negative Negative UROBILIN (test code = 4.0 mg/dL Normal A 1238127949) BILIRUBIN (test code = Negative Negative 6426739405) NITRITE (test code = 4096922253) Negative Negative [place] (test code = Negative Negative 6588298891) RBC/HPF (test code = 5909746168) See_Comment [Automated message] The system which ge nerated this result transmit sherice reference range: 0 - 3 HP F. The reference range was not used to interpret th is result as normal/abnormal . WBC/HPF (test code = 4230823351) <1 See_Comment [Automated message] The system which ge nerated this result transmit sherice reference range: 0 - 5 HP F. The reference range was not used to interpret th is result as normal/abnormal . BACTERIA (test code = Few Negative A 0520093170) SQ EPITH (test code = HPF 6659619088) Lab Interpretation (test code = Abnormal 91635-6) [facility] 03:22:48 Test Item Value Reference Range Interpretation Comments APPEARANCE (test code = Hazy Clear A 2772615172) COLOR (test code = Yellow Yellow 4145885579) PH (test code = 4.8-8.0 3457853413) SP GRAVITY (test code = 1.003-1.030 0241544309) GLU U QUAL (test code = Normal Normal 0138195510) BLOOD (test code = Negative Negative 7640660220) KETONES (test code = 5 mg/dL Negative A 3962900195) PROTEIN (test code = Negative Negative 2887-8) UROBILIN (test code = 4.0 mg/dL Normal A 0905412948) BILIRUBIN (test code = Negative Negative 2469901455) NITRITE (test code = Negative Negative 0865544374) [place] (test code = Negative Negative 5071831815) RBC/HPF (test code = See_Comment [Autom ated message] 0476029369) The system [employer] generated this result transmit sherice reference range : 0 - 3 HPF. The refe rence range was not u sed to interpret th is result as normal/abnormal . WBC/HPF (test code = <1 See_Comment [Autom ated message] 4119457634) The system [employer] generated this result transmit sherice reference range : 0 - 5 HPF. The refe rence range was not u sed to interpret th is result as normal/abnormal . BACTERIA (test code = Few Negative A 4552666046) SQ EPITH (test code = HPF 5702895958) Lab Interpretation (test Abnormal code = 85900-0) [facility] [id number] 02:45:00 Test Item Value Reference Interpretation Comments Range TROPONIN I (test 0.002 ng/mL See_Comment [Automated code = 3303874660) message] The system which generated this result transmitted reference range : <=0.034. The reference range was not used to interpret this result as normal/abnormal . LYNDSAY (test code = Reference (Normal) LYNDSAY) Range (defined by the 99th percentile reference limit): <= 0.034 ng/mL Note: Cardiac troponin begins to rise 3-4 hours after the onset of ischemia. Repeat in 4-6 hours if the sample was drawn within 3-4 hours of the onset of the symptom and found normal. Diagnosis of myocardial injury is made with acute changes in cTn concentrations with at least one serial sample above the 99th percentile upper reference limit (URL), taken together with the patient's clinical presentation. Biotin has been reported to cause a negative bias, interpret results relative to patient's use of biotin. Lab Interpretation Normal (test code = 71151-9) [facility] [id number] 02:45:00 Test Item Value Reference Range Interpretation Comments TROPONIN I (test code = 0.002 ng/mL See_Comment [Au tomated 2937146960) message] The sy stem which generated this result transmitted reference range : <=0.034. The reference range was not used to interpret this result as normal/abnormal . LYNDSAY (test code = LYNDSAY) Lab Interpretation Normal (test code = 04603-4) [facility] [id number] 02:41:57 Test Item Value Reference Range Interpretation Comments NT-proBNP (test code 169 pg/mL See_Comment H [Autom ated = 6856253269) message] The system which generated this result transmitted reference range : <=125. The reference range was not used to interpret this result as normal/abnormal . LYNDSAY (test code = LYNDSAY) Biotin has been reported to cause a negative bias, interpret results relative to patient's use of biotin. Lab Interpretation Abnormal (test code = 85056-0) [facility] [id number] 02:41:57 Test Item Value Reference Range Interpretation Comments NT-proBNP (test code = 169 pg/mL See_Comment H [Aut omated message] 8698451481) The system [employer] generated this result transmit sherice reference range : <=125. The refe rence range was not u sed to interpret th is result as normal/abnormal . LYNDSAY (test code = LYNDSAY) Lab Interpretation (test Abnormal code = 17782-0) [facility]. METABOLIC PANEL ([id number])2021-03-17 02:09:13 Test Item Value Reference Range Interpretation Comments NA (test code = 137 mmol/L 135-145 9024235968) K (test code = 4.2 mmol/L 3.5-5.0 0761936787) CL (test code = 102 mmol/L 98-108 3073941912) CO2 TOTAL (test code = 25 mmol/L 23-31 9774607682) AGAP (test code = 2-16 4814844115) BUN (test code = 18 mg/dL 7-23 7176390394) GLUCOSE (test code = 144 mg/dL 70-110 H 5945373829) CREATININE (test code = 0.77 mg/dL 0.50-1.04 2400010940) TOTAL BILI (test code = 0.4 mg/dL 0.1-1.3 2852406701) CALCIUM (test code = 8.9 mg/dL 8.6-10.6 3776556844) T PROTEIN (test code = 6.8 g/dL 6.3-8.2 2003442227) ALBUMIN (test code = 3.9 g/dL 3.5-5.0 0609778794) ALK PHOS (test code = 84 U/L 34-122 1853903341) ALTv (test code = 13 U/L 35 1742-6) AST(SGOT) (test code = 17 U/L 13-40 9783268910) eGFR (test code = mL/min/1.73m2 5850294445) LYNDSAY (test code = LYNDSAY) Association of Glomerular Filtration Rate (GFR) and Staging of Kidney Disease* + --+ --+ ------+| GFR (mL/min/1.73 m2) ?| With Kidney Damage ?| ?Without Kidney Damage+ --------+ --------+ +| ?>90 ?| ?Stage one ?| ? Normal ?+ ---+ ---+ -------+| ?60-89 ?| ?Stage two ?| ? Decreased GFR ? + --+ --+ ------+| ?30-59 ?| ?Stage three ?| ? Stage three ? + --+ --+ ------+| ?15-29 ?| ?Stage four ? | ? Stage four ?+ ---+ ---+ -------+| ?<15 (or dialysis) ? ?| ?Stage five ? | ? Stage five ?+ ---+ ---+ -------+ *Each stage assumes the associated GFR level has been in effect for at least three months. ?Stages 1 to 5, with or without kidney disease, indicate chronic kidney disease. Notes: Determination of stages one and two (with eGFR >59mL/min/1.73 m2) requires estimation of kidney damage for at least three months as defined by structural or functional abnormalities of the kidney, manifested by either:Pathological abnormalities or Markers of kidney damage (including abnormalities in the composition of the blood or urine or abnormalities in imaging tests). Lab Interpretation Abnormal (test code = 42042-7) [facility]. METABOLIC PANEL (22284)2021-03-17 02:09:13 Test Item Value Reference Range Interpretation Comments NA (test code = 8700380446) 137 mmol/L 135-145 K (test code = 2002024877) 4.2 mmol/L 3.5-5.0 CL (test code = 6375534101) 102 mmol/L 98-108 CO2 TOTAL (test code = 7304726106) 25 mmol/L 23-31 AGAP (test code = 0039135194) 2-16 BUN (test code = 3439779528) 18 mg/dL 7-23 GLUCOSE (test code = 7363449820) 144 mg/dL 70-110 H CREATININE (test code = 0.77 mg/dL 0.50-1.04 9566609652) TOTAL BILI (test code = 0.4 mg/dL 0.1-1.3 5896240918) CALCIUM (test code = 7775719234) 8.9 mg/dL 8.6-10.6 T PROTEIN (test code = 2294039923) 6.8 g/dL 6.3-8.2 ALBUMIN (test code = 8293313803) 3.9 g/dL 3.5-5.0 ALK PHOS (test code = 1313922520) 84 U/L 34-122 ALTv (test code = 1742-6) 13 U/L 5-35 AST(SGOT) (test code = 1960927113) 17 U/L 13-40 eGFR (test code = 3207380361) mL/min/1.73m2 LYNDSAY (test code = LYNDSAY) Lab Interpretation (test code = Abnormal 52370-4) [facility] WITH [id number] 01:56:33 Test Item Value Reference Range Interpretation Comments WBC (test code = See_Comment H [Automated 2890-2) message] The sy stem which generated this result transmitted reference range : 4.30 - 11.10 10*3/?L. The reference range was not used to interpret this result as normal/abnormal . RBC (test code = See_Comment [Automated 359-8) message] The sy stem which generated this [...] (test code = 55.5 fL 39.0-49.9 H 80801-0) RDW-CV (test code = 18.9 % 12.0-15.5 H 788-0) PLT (test code = See_Comment H [Automated 777-3) message] The sy stem which generated this result transmitted reference range : 166 - 358 10*3/ ?L. The reference r zoe was not used to interpret this result as normal/abnormal . MPV (test code = 8.2 fL 9.5-12.9 L 00153-0) NRBC/100 WBC (test See_Comment [Automat ed code = 5908838430) message] The system which generated this result transmitted reference range : 0.0 - 10.0 /100 WBCs. The refer ence range was not u sed to interpret th is result as normal/abnormal . NRBC x10^3 (test code <0.01 See_Comment [Auto mated = 3645065651) message] The s ystem which generated this result transmitted reference range : 10*3/?L. The reference range was not used to interpret this result as normal/abnormal . GRAN MAT (NEUT) % 61.7 % (test code = 770-8) IMM GRAN % (test code 0.80 % = 3688815897) LYMPH % (test code = 28.5 % 736-9) MONO % (test code = 6.3 % 5905-5) EOS % (test code = 1.8 % 713-8) BASO % (test code = 0.9 % 706-2) GRAN MAT x10^3(ANC) 7.31 10*3/uL 1.88-7.09 H (test code = 5814386701) IMM GRAN x10^3 (test 0.09 10*3/uL 0.00-0.06 H code = 8173230201) LYMPH x10^3 (test code 3.38 10*3/uL 1.32-3.29 H = 731-0) MONO x10^3 (test code 0.75 10*3/uL 0.33-0.92 = 742-7) EOS x10^3 (test code = 0.21 10*3/uL 0.03-0.39 711-2) BASO x10^3 (test code 0.11 10*3/uL 0.01-0.07 H = 704-7) Lab Interpretation Abnormal (test code = 77045-7) [facility] WITH [id number] 01:56:33 Test Item Value Reference Range Interpretation [...] (test code = 55.5 fL 39.0-49.9 H 06701-3) RDW-CV (test code = 18.9 % 12.0-15.5 H 788-0) PLT (test code = See_Comment H [Automated 777-3) message] The sy stem which generated this result transmitted reference range : 166 - 358 10*3/ ?L. The reference r zoe was not used to interpret this result as normal/abnormal . MPV (test code = 8.2 fL 9.5-12.9 L 39577-8) NRBC/100 WBC (test See_Comment [Automat ed code = 6663800819) message] The system which generated this result transmitted reference range : 0.0 - 10.0 /100 WBCs. The refer ence range was not u sed to interpret th is result as normal/abnormal . NRBC x10^3 (test code <0.01 See_Comment [Auto mated = 3470071428) message] The s [employer] which generated this result transmitted reference range : 10*3/?L. The reference range was not used to interpret this result as normal/abnormal . GRAN MAT (NEUT) % 61.7 % (test code = 770-8) IMM GRAN % (test code 0.80 % = 2662300270) LYMPH % (test code = 28.5 % 736-9) MONO % (test code = 6.3 % 5905-5) EOS % (test code = 1.8 % 713-8) BASO % (test code = 0.9 % 706-2) GRAN MAT x10^3(ANC) 7.31 10*3/uL 1.88-7.09 H (test code = 9771023907) IMM GRAN x10^3 (test 0.09 10*3/uL 0.00-0.06 H code = 4602619487) LYMPH x10^3 (test code 3.38 10*3/uL 1.32-3.29 H = 731-0) MONO x10^3 (test code 0.75 10*3/uL 0.33-0.92 = 742-7) EOS x10^3 (test code = 0.21 10*3/uL 0.03-0.39 711-2) BASO x10^3 (test code 0.11 10*3/uL 0.01-0.07 H = 704-7) Lab Interpretation Abnormal (test code = 27878-5) [facility] NOW RAPID TESTING)2021-03-17 01:38:12 Test Item Value Reference Range Interpretation Comments SARS-CoV-2 Rapid ID NOW Not Detected Not Detected (test code = 50875-4) LYNDSAY (test code = LYNDSAY) ID NOW COVID-19 Assay is an isothermal nucleic acid amplification test intended for the qualitative detection of nucleic acid from SARS-CoV-2 viral RNA in nasopharyngeal (ONION [employer]ER) specimens. It is used under Emergency Use Authorization (EUA) by FDA. The limit of detection (LOD) of the assay is 125 Genome Equivalents/mL. A positive result is indicative of the presence of SARS-CoV-2 RNA. ?Clinical correlation with patient history and other diagnostic information is necessary to determine patient infection status. A negative (Not Detected) result does not preclude SARS-CoV-2 infection. In patients with clinical symptoms and other tests that are consistent with SARS-CoV-2 infection, negative results should be treated as presumptive negative and a new specimen should be tested with alternative PCR molecular test. Invalid: Please collect a new specimen for repeat patient testing if clinically indicated. Lab Interpretation Normal (test code = 27678-2) [facility] (ID NOW RAPID TESTING)2021-03-17 01:38:12 Test Item Value Reference Range Interpretation Comments SARS-CoV-2 Rapid ID NOW (test Not Detected Not Detected code = 44525-1) LYNDSAY (test code = LYNDSAY) Lab Interpretation (test code = Normal 17949-6) [facility]2021-02-19 17:42:45 Test Item Value Reference Range Interpretation Comments SARS-CoV-2 Rapid ID NOW Not Detected Not Detected (test code = 37346-5) LYNDSAY (test code = LYNDSAY) ID NOW COVID-19 Assay is an isothermal nucleic acid amplification test intended for the qualitative detection of nucleic acid from SARS-CoV-2 viral RNA in nasopharyngeal ([employer]) specimens. It is used under Emergency Use Authorization (EUA) by FDA. The limit of detection (LOD) of the assay is 125 Genome Equivalents/mL. A positive result is indicative of the presence of SARS-CoV-2 RNA. ?Clinical correlation with patient history and other diagnostic information is necessary to determine patient infection status. A negative (Not Detected) result does not preclude SARS-CoV-2 infection. In patients with clinical symptoms and other tests that are consistent with SARS-CoV-2 infection, negative results should be treated as presumptive negative and a new specimen should be tested with alternative PCR molecular test. Invalid: Please collect a new specimen for repeat patient testing if clinically indicated. Lab Interpretation Normal (test code = 80394-5) [facility] CenterCT ABDOMEN PELVIS W [id number] 17:24:55Thickening of the gastric antrum and duodenal bulb could be fromunderdistention, the differential would include sequela of peptic ulcerdisease. No findings of ulcer perforation. Otherwise, no acute intra- abdominal or pelvic abnormality. Stable thickening and nodularity of the left adrenal gland. RL: [id number] Patient name: EUSEBIA ONTIVEROSB: 1970 51 years EXAMINATION: CT ABDOMEN PELVIS W CONTRAST Ordering Physician: ANALI PATEL CLINICAL HISTORY:Abdominal pain, acute, nonlocalized COMPARISON:11/21/2015 TECHNIQUE:Helical CT images of the abdomen and pelvis were performed from the lungbases to the proximal femurs using 5 mm slice thickness after theadministration of IV contrast. Oral contrast was administered. Coronal andsagittal reconstruction was performed. Dose reduction technology wasutilized.. FINDINGS:The liver is normal in size and morphology without discrete lesions. Focalfatty infiltration along the falciform ligament. Cholecystectomy. Thespleen is normal. No pancreatic lesions or inflammatory changes. Diffusethickening and nodularity of the left adrenal gland is stable measuring upto 1.5 cm. Right adrenal glandis normal. Both kidneys enhance symmetrically without discrete lesions. No stones orhydronephrosis. Urinary bladder is grossly normal. No hiatal hernia or esophageal thickening. Thickening noted of thegastricantrum and duodenal bulb. No surrounding inflammatory changes or focalfluid collections. No free air. The large and small bowel are normal incaliber and wall thickness. Moderate formed stool within the colon. Theappendix is normal. The uterus and ovaries are normal for age. No free fluid or abscess. Noadenopathy. Aorta is normal in caliber. No acute osseous abnormality. No acute process in thesubcutaneous softtissues. The lung bases are clear. [facility], Radiant Results Inft User - 02/19/2021 12:26 PM CDT Patient name: EUSEBIA MCCABE OMASDOB: 1970 51 years EXAMINATION: CT ABDOMEN PELVIS W CONTRASTOrdering Physician: ANALI PATEL CLINICAL HISTORY:Abdominal pain, acute, nonlocalized COMPARISON:11/21/2015TECHNIQUE:Helical CT images of the abdomen and pelvis were performed from the lungbases to the proximal femurs using 5 mm slice thickness after theadministration of IV contrast. Oral contrast was administered. Coronal andsagittal reconstruction was performed. Dose reduction technology wasutilized..FINDINGS:The liver is normalin size and morphology without discrete lesions. Focalfatty infiltration along the falciform ligament. Cholecystectomy. Thespleen is normal. No pancreatic lesions or inflammatory changes. Diffusethickening and nodularity of the left adrenal gland is stable measuring upto 1.5 cm. Right adrenal gland isnormal.Both kidneys enhance symmetrically without discrete lesions. No stones orhydronephrosis. Urinary bladder is grossly normal.No hiatal hernia or esophageal thickening. Thickening noted of the gastr icantrum and duodenal bulb. No surrounding inflammatory changes or focalfluid collections. No free air. The large and small bowel are normal incaliber and wall thickness. Moderate formed stool within the colon. Theappendix is normal.The uterus and ovaries are normal for age. No free fluid or abscess. N oadenopathy. Aorta is normal in caliber.No acute osseous abnormality. No acute process in the subcutaneous softtissues. The lung bases are clear.IMPRESSIONThickening of the gastric antrum and duodenal bulb could be fromunderdistention, the differential would include sequela of peptic ulcerdisease. No findings of ulcer perforation.Otherwise, no acute intra- abdominal or pelvic abnormality.Stable thickening and nodularity of the left adrenal gland.RL: [id number] [facility] CenterUrinalysis2021-08-03 17:03:40 Test Item Value Reference Range Interpretation Comments APPEARANCE (test code = Hazy Clear A 8817162076) COLOR (test code = Mabel Yellow A 3148169870) PH (test code = 4.8-8.0 9505552229) SP GRAVITY (test code = 1.003-1.030 H 0946337289) GLU U QUAL (test code = Normal Normal 8341226063) BLOOD (test code = Negative Negative 2426452714) KETONES (test code = 5 mg/dL Negative A 3553525696) PROTEIN (test code = 30 mg/dL Negative A 2887-8) UROBILIN (test code = 4.0 mg/dL Normal A 8011152785) BILIRUBIN (test code = 4 mg/dL Negative A 9578853945) NITRITE (test code = Negative Negative 1832434245) [place]UPO (test code = Negative Negative 7571665953) RBC/HPF (test code = See_Comment H [Autom ated message] 8033234659) The system [employer] generated this result transmit sherice reference range : 0 - 3 HPF. The refe rence range was not u sed to interpret th is result as normal/abnormal . WBC/HPF (test code = See_Comment H [Autom ated message] 0183207938) The system [employer] generated this result transmit sherice reference range : 0 - 5 HPF. The refe rence range was not u sed to interpret th is result as normal/abnormal . BACTERIA (test code = Few Negative A 1992715312) MUCOUS (test code = Moderate Negative LPF A 0198568676) SQ EPITH (test code = HPF 3073558805) CA OXALATE (test code = See_Comment H [Au tomated message] 4979815011) The system [employer] generated this result transmit sherice reference range : <=1 HPF. The refere nce range was not u sed to interpret th is result as normal/abnormal . Ictotest (test code = Negative 1381137043) Lab Interpretation (test Abnormal code = 73550-8) [facility] CenterComplete Metabolic [id number] 16:34:55 Test Item Value Reference Range Interpretation Comments NA (test code = 139 mmol/L 135-145 1077995450) K (test code = 4.3 mmol/L 3.5-5.0 7159569496) CL (test code = 105 mmol/L 98-108 6781569177) CO2 TOTAL (test code 26 mmol/L 23-31 = 0825617854) AGAP (test code = 2-16 8226074287) BUN (test code = 11 mg/dL 7-23 6473092496) GLUCOSE (test code = 95 mg/dL 70-110 7375729252) CREATININE (test code 0.70 mg/dL 0.50-1.04 = 9345604517) TOTAL BILI (test code 0.6 mg/dL 0.1-1.1 = 0577156993) CALCIUM (test code = 8.9 mg/dL 8.6-10.6 5029266038) T PROTEIN (test code 7.7 g/dL 6.3-8.2 = 6586332809) ALBUMIN (test code = 4.1 g/dL 3.5-5.0 3267336179) ALK PHOS (test code = 79 U/L 34-122 1146566917) ALTv (test code = 10 U/L 5-35 1742-6) AST(SGOT) (test code 22 U/L 13-40 = 9624054415) eGFR (test code = mL/min/1.73m2 4082708244) LYNDSAY (test code = LYNDSAY) Association of Glomerular Filtration Rate (GFR) and Staging of Kidney Disease* + + +- +| GFR (mL/min/1.73 m2) ?| With Kidney Damage ?| ?Without Kidney Damage+ ------+ ----+ ------+| ?>90 ?| ?Stage one ?| ? Normal ?+ -+ + -+| ?60-89 ?| ?Stage two ?| ? Decreased GFR ? + + +- +| ?30-59 ?| ?Stage three ?| ? Stage three ? + + +- +| ?15-29 ?| ?Stage four ? | ? Stage four ?+ -+ + -+| ?<15 (or dialysis) ? ?| ?Stage five ? | ? Stage five ?+ -+ + -+ *Each stage assumes the associated GFR level has been in effect for at least three months. ?Stages 1 to 5, with or without kidney disease, indicate chronic kidney disease. Notes: Determination of stages one and two (with eGFR >59mL/min/1.73 m2) requires estimation of kidney damage for at least three months as defined by structural or functional abnormalities of the kidney, manifested by either:Pathological abnormalities or Markers of kidney damage (including abnormalities in the composition of the blood or urine or abnormalities in imaging tests). [facility] CenterLipase, [id number] 16:34:14 Test Item Value Reference Range Interpretation Comments LIPASE (test code = 8867969526) 45 U/L 0-220 Lab Interpretation (test code = Normal 32254-9) [facility] CenterCB with [id number] 16:21:12 Test Item Value Reference Range Interpretation Comments WBC (test code = See_Comment [Automated 2390-2) message] The sy stem which generated this [...] as normal/abnormal . HGB (test code = 12.2 g/dL 11.6-15.0 718-7) HCT (test code = 39.0 % 35.7-45.2 4544-3) MCV (test code = 82.3 fL 80.6-95.5 787-2) MCH (test code = 25.7 pg 25.9-32.8 L 785-6) MCHC (test code = 31.3 g/dL 31.6-35.1 L 786-4) RDW-SD (test code = 54.4 fL 39.0-49.9 H 91891-0) RDW-CV (test code = 18.3 % 12.0-15.5 H 788-0) PLT (test code = See_Comment H [Automated 777-3) message] The sy stem which generated this result transmitted reference range : 166 - 358 10*3/ ?L. The reference r zoe was not used to interpret this result as normal/abnormal . MPV (test code = 8.5 fL 9.5-12.9 L 98041-5) NRBC/100 WBC (test See_Comment [Automat ed code = 7512554084) message] The system which generated this result transmitted reference range : 0.0 - 10.0 /100 WBCs. The refer ence range was not u sed to interpret th is result as normal/abnormal . NRBC x10^3 (test code <0.01 See_Comment [Auto mated = 1083161260) message] The s ystem which generated this result transmitted reference range : 10*3/?L. The reference range was not used to interpret this result as normal/abnormal . GRAN MAT (NEUT) % 78.3 % (test code = 770-8) IMM GRAN % (test code 0.40 % = 6531597683) LYMPH % (test code = 15.4 % 736-9) MONO % (test code = 4.8 % 5905-5) EOS % (test code = 0.1 % 713-8) BASO % (test code = 1.0 % 706-2) GRAN MAT x10^3(ANC) 7.15 10*3/uL 1.88-7.09 H (test code = 7909691085) IMM GRAN x10^3 (test 0.04 10*3/uL 0.00-0.06 code = 1158867294) LYMPH x10^3 (test code 1.41 10*3/uL 1.32-3.29 = 731-0) MONO x10^3 (test code 0.44 10*3/uL 0.33-0.92 = 742-7) EOS x10^3 (test code = <0.03 0.03-0.39 L 711-2) BASO x10^3 (test code 0.09 10*3/uL 0.01-0.07 H = 704-7) Lab Interpretation Abnormal (test code = 60819-1) [facility]"
[2021-07-17] MEDS ORDERED: ACETAMINOPHEN 500 MG TAB ONE (10:31)
[2021-07-17 11:31] LABS: Urine Blood 3+ (Negative); Urine Glucose Negative (Negative); Urine Protein 2+ (Negative); Urine Specific Gravity >=1.030 (1.005-1.030)
--- NOTE | 2021-07-17 12:52 | ER ---
Nurse's Notes [facility] Name: Heather Coon Age: 51 yrs Sex: Female : 1970 Arrival Date: 07/17/2021 Time: 09:34 Bed Waiting Private MD: Diagnosis: Presentation: 07/17 09:40 Chief complaint: EMS states: vaginal bleeding x2 days ago; and this morning bleeding vg1 was 'heavier'. Took 800 mg of ibuprofen x2 hours ago for pelvic cramps, 'feels like stabbing'. Seen a PCP recently and was dx with Cervical cancer; went through 3 tampons and two pad in one hour, denies clots. Onset of symptoms was July 15, 2021. 09:40 Method Of Arrival: EMS: [facility] vg1 10:23 Coronavirus screen: Vaccine status: Patient reports receiving the 2nd dose of the covid vg1 vaccine. Client denies travel out of the [place] in the last 14 days. Ebola Screen: Patient negative for fever greater than or equal to 101.5 degrees Fahrenheit, and additional compatible Ebola Virus Disease symptoms. Initial Sepsis Screen: Does the patient meet any 2 criteria? No. Patient's initial sepsis screen is negative. Does the patient have a suspected source of infection? No. Patient's initial sepsis screen is negative. Risk Assessment: Do you want to hurt yourself or someone else? Patient reports no desire to harm self or others. 10:23 Acuity: ANDER 3 vg1 Triage Assessment: 10:24 General: Appears in no apparent distress. uncomfortable, Behavior is calm, cooperative, vg1 crying. Pain: Complains of pain in groin and suprapubic area Pain currently is 10 out of 10 on a pain scale. Quality of pain is described as crampy, sharp, Pain began 2-3 days ago. : Reports vaginal bleeding that is bright red, heavy flow. 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 - Social history:: Smoking status: Patient reports the use of cigarette tobacco products, smokes one pack cigarettes per day. Vital Signs: 10:23 BP 147 / 95; Pulse 95; Resp 16; Temp 97.6; Pulse Ox 100% ; Weight 72.57 kg; Height 5 vg1 ft. 2 in. (157.48 cm); Pain 10/; 10:23 Body Mass Index 29.26 (72.57 kg, 157.48 cm) vg1 ED Course: 09:34 Patient arrived in ED. am2 10:24 Triage completed. vg1 10:24 Arm band placed on. vg1 10:31 Derrick Castillo PA is PHCP. cp 10:32 Matt Urias MD is Attending Physician. cp 11:34 Urine collected: clean catch specimen, blood tinged. mh5 Administered Medications: 10:31 Drug: Tylenol 1000 mg Route: PO; vg1 Outcome: 12:51 Patient left the ED. vg1 Signatures: Derrick Castillo PA PA cp Martinez, Maria 5 Freida Dickerson 2 Ewelina Vitale, RN RN vg1
--- NOTE | 2021-07-17 12:52 | EDPHYS ---
Physician Documentation [facility] Name: Heather Coon Age: 51 yrs Sex: Female : 1970 Arrival Date: 07/17/2021 Time: 09:34 Bed Waiting Private MD: ED Physician Matt Urias HPI: 07/17 10:35 This 51 yrs old Female presents to ER via EMS with complaints of Vaginal Bleeding. cp 10:35 The patient presents with vaginal bleeding that is with clots. Onset: The cp symptoms/episode began/occurred 1 week(s) ago. 10:35 Associated signs and symptoms: Pertinent positives: lower abdominal pain, Pertinent cp negatives: fever. 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 - Social history:: Smoking status: Patient reports the use of cigarette tobacco products, smokes one pack cigarettes per day. ROS: 10:40 Constitutional: Negative for body aches, chills, fever, poor PO intake. cp 10:40 Eyes: Negative for injury, pain, redness, and discharge. cp 10:40 Cardiovascular: Negative for chest pain. 10:40 Abdomen/GI: Positive for abdominal pain, nausea, of the right lower quadrant and left lower quadrant. 10:40 : Positive for vaginal bleeding, Negative for flank pain. 10:40 Neuro: Negative for altered mental status, headache, syncope, weakness. 10:40 All other systems are negative. Exam: 10:45 Constitutional: The patient appears in no acute distress, alert, awake, cp non-diaphoretic, non-toxic, well developed, well nourished, uncomfortable. 10:45 Head/Face: Normocephalic, atraumatic. cp 10:45 Cardiovascular: Rate: normal. 10:45 Respiratory: the patient does not display signs of respiratory distress, Respirations: normal, no use of accessory muscles, no retractions, labored breathing, is not present, Breath sounds: are clear throughout, no decreased breath sounds, no stridor, no wheezing. 10:45 Abdomen/GI: Inspection: abdomen appears normal, Palpation: soft, in all quadrants, moderate abdominal tenderness, in the right lower quadrant and left lower quadrant, rebound tenderness, is not appreciated, voluntary guarding, is elicited in the right lower quadrant and left lower quadrant. Vital Signs: 10:23 BP 147 / 95; Pulse 95; Resp 16; Temp 97.6; Pulse Ox 100% ; Weight 72.57 kg; Height 5 vg1 ft. 2 in. (157.48 cm); Pain 10; 10:23 Body Mass Index 29.26 (72.57 kg, 157.48 cm) vg1 MDM: 07/17 10:32 Order name: IV Saline Lock 07/17 10:32 Order name: Labs collected and sent 07/17 11:31 Order name: Urine Dipstick-Ancillary; Complete Time: 11:43 EDMS 07/17 11:43 Interpretation: Normal except: UBLD 3+; UPROT 2+. 07/17 12:17 Order name: Urine --Ancillary (enter results) 4 07/17 12:17 Order name: Urine --Ancillary EDMS Administered Medications: 10:31 Drug: Tylenol 1000 mg Route: PO; vg1 Disposition: 14:23 Co-signature as Attending Physician, Mtat Urias MD I agree with the assessment and kdr plan of care. Disposition Summary: 07/17/21 12:51 Eloped Disposition: before being seen by provider vg1 Reason: wait time vg1 Signatures: Dispatcher [employer] EDMS Matt Urias MD MD kdr Derrick Castillo PA PA Ewelina Soares RN RN vg1
[2021-07-17 13:01] VITALS: BP 147/95; TEMP 97.6; O2SAT 100
== END 2021-07-17 12:51 | disposition left against medical advice (07) ==
LOC: ER 09:30
DX: N93.9 Abnormal uterine and vaginal bleeding, unspecified (principal); F17.210 Nicotine dependence, cigarettes, uncomplicated; Z88.8 Allergy status to other drugs, medicaments and biological substances
CPT/HCPCS: 81003; 81025; 99283

== ENCOUNTER 2021-08-28 17:32 | Emergency (ER) | payer SELFPAY ==
--- OUTSIDE RECORDS SUMMARY | 2021-08-28 17:37 | XMS REPORT | Continuity of Care Document ---
:1970 Author Organization [facility] t Address [address] [place] [address] Care Team Providers Name Role Phone PCP, DOES NOT HAVE A Primary Care Physician Unavailable OTONIEL Attending Clinician Unavailable Carlito Grahami Attending Clinician Unavailable Otoniel ELIZONDO Attending Clinician Doctor Unassigned, Name Attending Clinician Unavailable Brandy CAMPOS Attending Clinician Unavailable Palmer BRONSONP Attending Clinician Deo NET REPAIRER Attending Clinician Unknown Attending Clinician Unavailable UNKNOWN [...] [facility] Exposure to Not sure [place] of SARS-CoV-2 (event) [facility] Alcohol intake 2021-03-21 2021-03-21 0 /d University of 00:00:00 00:00:00 [facility] Cigarettes smoked 2021-03-14 2021-03-14 Univers ity of current (pack per 00:00:00 00:00:00 ) - Reported Branch Cigarette 2021-03-14 2021-03-14 University of pack-years 00:00:00 00:00:00 [facility] Tobacco use and 2021-03-14 2021-03-14 Never used Universit y of exposure 00:00:00 00:00:00 [facility] Sex Ass[birth year] At [birth year] Universit y [...] 00 :00 dose, Sat Medical 03/16/21 at [place] 2100, STAT ondansetron 2020- No 4mg 4 [...] Slow IV ity of succ 01:57: 02:11 [place], [place] (SOLU-MEDRO 00 :00 ONCE, 1 Medic [...] Slow IV ity of succ 01:57: 02:11 [place], [place] (SOLU-MEDRO 00 :00 ONCE, 1 Medic [...] nebulizer solution 3 mL levoFLOXaci 2020- No [id number] 500mg Take 1 Univers n 500 mg 03-17 tablet by ity o f tablet 00:00: 04:59 mouth [place] 00 :00 daily for Medical 6 days. [place] levoFLOXaci 2020- No [id number] 500mg Take 1 Univers n 500 mg 03-17 tablet by ity o f tablet 00:00: 04:59 mouth [place] 00 :00 daily for Medical 6 days. [place] levoFLOXaci 2020- No [id number] 500mg Take 1 Univers n 500 mg 03-17 tablet by ity o f tablet 00:00: 04:59 mouth [place] 00 :00 daily for Medical 6 days. [place] levoFLOXaci 2020- No [id number] 500mg Take 1 Univers n 500 mg 03-17 tablet by ity o f tablet 00:00: 04:59 mouth [place] 00 :00 daily for Medical 6 days. [place] predniSONE 2020- No [id number] 30mg Take 3 Univers 10 mg 03-17 tablets by ity of tablet 00:00: 04:59 mouth [place] 00 :00 daily for Medical 4 days. Branch predniSONE 2020- No [id number] 30mg Take 3 Univers 10 mg 03-17 tablets by ity of tablet 00:00: 04:59 mouth [place] 00 :00 daily for Medical 4 days. Branch predniSONE 2020- No [id number] 30mg Take 3 Univers 10 mg 03-17 tablets by ity of tablet 00:00: 04:59 mouth [place] 00 :00 daily for Medical 4 days. Branch predniSONE 2020- No [id number] 30mg Take 3 Univers 10 mg 03-17 tablets by ity of tablet 00:00: 04:59 mouth [place] 00 :00 daily for Medical 4 days. [place] albuterol 2020- No [id number] 4{puff} 4 Puff, Univers (VENTOLIN) 03-15 Inhalation it y of inhaler 4 01:45: 00:44 [place] :[place] dose, [facility] Medical 03/14/21 at Branch 2044, Routine dexamethaso 2020- No [id number] 10mg 10 mg, Univers ne 03-15 Intramuscu ity of (DECADRON) 01:45: 00:45 lar, ONCE, [place] injection 00 :00 1 dose, Medical 10 mg [facility] 03/14/21 at 2044, Routine albuterol Yes [id number] 2.5mg Inhale 3 Univers 2.5 mg /3 8-27 mL every 4 ity of mL (0.083 00:00: (four) [place] %) 00 hours as Medical nebulizer needed for Bran ch solution Wheezing or Shortness of Breath. albuterol Yes [id number] 2.5mg Inhale 3 Univers 2.5 mg /3 8-27 mL every 4 ity of mL (0.083 00:00: (four) [place] %) 00 hours as Medical nebulizer needed for Bran ch solution Wheezing or Shortness of Breath. albuterol Yes [id number] 2.5mg Inhale 3 Univers 2.5 mg /3 8-27 mL every 4 ity of mL (0.083 00:00: (four) [place] %) 00 hours as Medical nebulizer needed for Bran ch solution Wheezing or Shortness of Breath. albuterol Yes [id number] 2.5mg Inhale 3 Univers 2.5 mg /3 8-27 mL every 4 ity of mL (0.083 00:00: (four) [place] %) 00 hours as Medical nebulizer needed for Bran ch solution Wheezing or Shortness of Breath. albuterol Yes [id number] 2.5mg Inhale 3 Univers 2.5 mg /3 8-27 mL every 4 ity of mL (0.083 00:00: (four) [place] %) 00 hours as Medical nebulizer needed for Bran ch solution Wheezing or Shortness of Breath. albuterol 2020-0 Yes [id number] 2.5mg Inhale 3 Univers 2.5 mg /3 8-27 mL every 4 ity of mL (0.083 00:00: (four) [place] %) 00 hours as Medical nebulizer needed for Bran ch solution Wheezing or Shortness of Breath. albuterol 2020-0 Yes [id number] 2.5mg Inhale 3 Univers 2.5 mg /3 8-27 mL every 4 ity of mL (0.083 00:00: (four) [place] %) 00 hours as Medical nebulizer needed for Bran ch solution Wheezing or Shortness of Breath. albuterol 2020-0 Yes [id number] 2.5mg Inhale 3 Univers 2.5 mg /3 [...] (KEPPRA -03 mouth. ity of ORAL) 19:45: [address] Branch levetiracet 2020-0 Yes Take by Un lois am (KEPPRA 8-03 mouth. ity of ORAL) 19:45: [address] Branch levetiracet 2020-0 Yes Take by Un lois am (KEPPRA 8-03 mouth. ity of ORAL) 19:45: [address] Branch levetiracet 2020-0 Yes Take by Un lois am (KEPPRA 8-03 mouth. ity of ORAL) 19:45: [address] Branch levetiracet 2021-0 Yes Take by Un lois am (KEPPRA 02-19 mouth. ity of ORAL) 19:45: [address] levetiracet Yes Take by Un lois am (KEPPRA 02-19 mouth. ity of ORAL) 19:45: [address] LISINOPRIL- 2020- No Take by U nivers HYDROCHLORO 02-19 mouth. ity o f THIAZIDE 19:41: 00:00 [place] ORAL 15 :00 [facility] Branch dicyclomine 2020- No 20mg 20 [...] Tue Medica l NaCl 0.9% 02/19/21 at [facility] h (NS) 50 mL 1415, 50 [...] at Branch 1200, MICHAEL iopamidol 2020- No [id number] 100mL 100 mL, Univers (ISOVUE 02-19 08-03 Intravenou ity o f 370-500 mL) 16:35: 16:45 s, ONCE, 1 [place] injection 00 :00 dose, Tue Medic al 100 mL 02/19/21 at Branch 1145, Routine levetiracet 0 Yes Take by Un lois am (KEPPRA 8-03 mouth. ity of ORAL) 14:45: [address] levetiracet 2020-0 Yes Take by Un lois am (KEPPRA 8-03 mouth. ity of ORAL) 14:45: [address] levetiracet 2020-0 Yes Take by Un lois am (KEPPRA 8-03 mouth. ity of ORAL) 14:45: [address] proMETHazin 2020-0 Yes [id number] 25mg Take 1 Univers e 25 mg 8-03 tablet by ity of tablet 00:00: mouth [place] 00 every 6 Medical (six) Branch hours as needed for Nausea and Vomiting (N/V). dicyclomine 2020-0 Yes [id number] 20mg Take 1 Univers 20 mg 8-03 tablet by ity of tablet 00:00: mouth [place] (four) Medical times Branch daily as needed for Abdominal pain. proMETHazin 2020-0 Yes [id number] 25mg Take 1 Univers e 25 mg 8-03 tablet by ity of tablet 00:00: mouth [place] 00 every 6 Medical (six) Branch hours as needed for Nausea and Vomiting (N/V). dicyclomine 2020-0 Yes [id number] 20mg Take 1 Univers 20 mg 8-03 tablet by ity of tablet 00:00: mouth [place] (four) Medical times Branch daily as needed for Abdominal pain. proMETHazin 2020-0 Yes [id number] 25mg Take 1 Univers e 25 mg 8-03 tablet by ity of tablet 00:00: mouth [place] 00 every 6 Medical (six) Branch hours as needed for Nausea and Vomiting (N/V). dicyclomine 2020-0 Yes [id number] 20mg Take 1 Univers 20 mg 8-03 tablet by ity of tablet 00:00: mouth [place] (four) Medical times Branch daily as needed for Abdominal pain. proMETHazin 1-0 Yes [id number] 25mg Take 1 Univers e 25 mg 8-03 tablet by ity of tablet 00:00: mouth [place] 00 every 6 Medical (six) Branch hours as needed for Nausea and Vomiting (N/V). dicyclomine 2020-0 Yes [id number] 20mg Take 1 Univers 20 mg 8-03 tablet by ity of tablet 00:00: mouth 4 00 (four) Medical times Branch daily as needed for Abdominal pain. proMETHazin 2020-0 Yes [id number] 25mg Take 1 Univers e 25 mg 8-03 tablet by ity of tablet 00:00: mouth [place] 00 every 6 Medical (six) Branch hours as needed for Nausea and Vomiting (N/V). dicyclomine 2020-0 Yes [id number] 20mg Take 1 Univers 20 mg 8-03 tablet by ity of tablet 00:00: mouth 4 00 (four) Medical times Branch daily as needed for Abdominal pain. proMETHazin 2020-0 Yes [id number] 25mg Take 1 Univers e 25 mg 8-03 tablet by ity of tablet 00:00: mouth [place] 00 every 6 Medical (six) Branch hours as needed for Nausea and Vomiting (N/V). dicyclomine 2020-0 Yes [id number] 20mg Take 1 Univers 20 mg 8-03 tablet by ity of tablet 00:00: mouth 4 00 (four) Medical times Branch daily as needed for Abdominal pain. proMETHazin 2020-0 Yes [id number] 25mg Take 1 Univers e 25 mg 8-03 tablet by ity of tablet 00:00: mouth [place] 00 every 6 Medical (six) Branch hours as needed for Nausea and Vomiting (N/V). dicyclomine 2021-0 Yes [id number] 20mg Take 1 Univers 20 mg 8-03 tablet by ity of tablet 00:00: mouth 4 00 (four) Medical times Branch daily as needed for Abdominal pain. proMETHazin 2021-0 Yes [id number] 25mg Take 1 Univers e 25 mg 8-03 tablet by ity of tablet 00:00: mouth [place] 00 every 6 Medical (six) Branch hours as needed for Nausea and Vomiting (N/V). dicyclomine 2021-0 Yes [id number] 20mg Take 1 Univers 20 mg 8-03 tablet by ity of tablet 00:00: mouth 4 00 (four) Medical times Branch daily as needed for Abdominal pain. proMETHazin Yes [id number] 25mg Take 1 Univers e 25 mg 8-03 tablet by ity of tablet 00:00: mouth [place] 00 every 6 Medical (six) Branch hours as needed for Nausea and Vomiting (N/V). dicyclomine Yes [id number] 20mg Take 1 Univers 20 mg 8-03 [...] o f mg tablet 20:05: every 8 [place] (eight) Medical hours as Branch needed. pantoprazol Yes 40mg Take 40 mg Univers e 7-24 by mouth ity of (PROTONIX) 20:05: daily. [place] 40 mg EC Medical tablet Branch ondansetron Yes 4mg Take 4 mg U nivers (ZOFRAN) 4 7-24 by mouth ity o f mg tablet 20:05: every 8 [place] (eight) Medical hours as Branch needed. pantoprazol Yes 40mg Take 40 mg Univers e 7-24 by mouth ity of (PROTONIX) 20:05: daily. [place] 40 mg EC Medical tablet Branch LISINOPRIL- Yes Take by Un lois HYDROCHLORO 7-24 mouth. ity of THIAZIDE 20:05: [place] ORAL Medical Branch ondansetron Yes 4mg Take 4 mg U nivers (ZOFRAN) 4 7-24 by mouth ity o f mg tablet 20:05: every 8 [place] (eight) Medical hours as Branch needed. pantoprazol [...] 7-24 by mouth ity of 19:58: daily. [address] Branch loratadine Yes Take by Uni vers (CLARITIN 7-24 mouth ity of LIQUI-GEL) 19:58: daily. [place] 10 mg 14 Medical capsule Branch MULTIVITAMI Yes 1{tbl} Take 1 Tab Univers N ORAL 7-24 by mouth ity of 19:58: daily. [address] loratadine Yes Take by Uni vers (CLARITIN 7-24 mouth ity of LIQUI-GEL) 19:58: daily. [place] 10 mg 14 Medical capsule Branch MULTIVITAMI Yes 1{tbl} Take 1 Tab Univers N ORAL 7-24 by mouth ity of 19:58: daily. [address] loratadine Yes Take by Uni vers (CLARITIN 7-24 mouth ity of LIQUI-GEL) 19:58: daily. [place] 10 mg 14 Medical capsule Branch MULTIVITAMI Yes 1{tbl} Take 1 Tab Univers N ORAL 7-24 by mouth ity of 19:58: daily. [address] loratadine Yes Take by Uni vers (CLARITIN 7-24 mouth ity of LIQUI-GEL) 19:58: daily. [place] 10 mg 14 Medical capsule Branch MULTIVITAMI Yes 1{tbl} Take 1 Tab Univers N ORAL 7-24 by mouth ity of 19:58: daily. [address] loratadine 0 Yes Take by Uni vers (CLARITIN 7-24 mouth ity of LIQUI-GEL) 19:58: daily. [place] 10 mg 14 Medical capsule Branch MULTIVITAMI Yes 1{tbl} Take 1 Tab Univers N ORAL 7-24 by mouth ity of 19:58: daily. [place] 14 Medical Branch loratadine 2017-0 Yes Take by Uni vers (CLARITIN 7-24 mouth ity of LIQUI-GEL) 19:58: daily. [place] 10 mg 14 Medical capsule Branch MULTIVITAMI 0 Yes 1{tbl} Take 1 Tab Univers N ORAL 7-24 by mouth ity of 19:58: daily. [place] [address] Medical Branch loratadine 2017-0 Yes Take by Uni vers (CLARITIN 7-24 mouth ity of LIQUI-GEL) 19:58: daily. [place] 10 mg 14 Medical capsule Branch ondansetron 0 Yes 4mg Take 4 mg U nivers (ZOFRAN) 4 7-24 by mouth ity o f mg tablet 15:05: every 8 [place] [address] (eight) Medical hours as Branch needed. pantoprazol 2017-0 Yes 40mg Take 40 mg Univers e 7-24 by mouth ity of (PROTONIX) 15:05: daily. [place] 40 mg EC Medical tablet Branch ondansetron Yes 4mg Take 4 mg U nivers (ZOFRAN) 4 7-24 by mouth ity o f mg tablet 15:05: every 8 [place] [address] (eight) Medical hours as Branch needed. pantoprazol 2017-0 Yes 40mg Take 40 mg Univers e 7-24 by mouth ity of (PROTONIX) 15:05: daily. [place] 40 mg EC 01 Medical tablet Branch ondansetron 0 Yes 4mg Take 4 mg U nivers (ZOFRAN) 4 7-24 by mouth ity o f mg tablet 15:05: every 8 [place] [address] (eight) Medical hours as Branch needed. pantoprazol [...] 7-24 by mouth ity of 14:58: daily. [address] loratadine Yes Take by Uni vers (CLARITIN 7-24 mouth ity of LIQUI-GEL) 14:58: daily. [place] 10 mg 14 Medical capsule Branch MULTIVITAMI Yes 1{tbl} Take 1 Tab Univers N ORAL 7-24 by mouth ity of 14:58: daily. [address] loratadine Yes Take by Uni vers (CLARITIN 7-24 mouth ity of LIQUI-GEL) 14:58: daily. [place] 10 mg 14 Medical capsule Branch MULTIVITAMI Yes 1{tbl} Take 1 Tab Univers N ORAL 7-24 by mouth ity of 14:58: daily. [address] Branch loratadine Yes Take by Uni [...] 00:00: daily. [place] mg tablet 00 [facility] Immunizations Ordered Filled Immunization Date Status Comments [facility] Immunization Name Name SARS-COV-2 COVID-19 2021-05-24 Completed Unive rsity of PFIZER VACCINE 00:00:[address] [facility] SARS-COV-2 COVID-19 2021-05-03 Completed Unive rsity of PFIZER VACCINE 00:00:[address] [facility] SARS-COV-2 COVID-19 2021-05-03 Completed Unive rsity of PFIZER VACCINE 00:00:[address] [facility] Vital Signs Vital Name Observation Time Observation Value Comments Source Systolic blood 2021-03-17 03:00:00 117 mm[Hg] Univer sity of pressure [place] [facility] Diastolic blood 2021-03-17 03:00:00 76 mm[Hg] Unive rsity of pressure [place] [facility] Heart rate 2021-03-17 03:00:00 104 /min Universi ty of [place] [facility] Respiratory rate 2021-03-17 03:00:00 28 /min Univ ersity of [place] [facility] Oxygen saturation in 2021-03-17 03:00:00 96 /min University of Arterial blood by [facility] Pulse oximetry Branch Body temperature 2021-03-17 00:39:00 37.11 Radha [facility] ersity of [place] [facility] Body height 2021-03-17 00:39:00 160 cm Universi ty of [place] [facility] Body weight 2021-03-17 00:39:00 58.968 kg Universi ty of [place] [facility] BMI 2021-03-17 00:39:00 23.03 kg/m2 Universi ty of [place] [facility] Systolic blood 2021-03-15 00:14:00 149 mm[Hg] Univer sity of pressure [place] [facility] Diastolic blood 2021-03-15 00:14:00 78 mm[Hg] Unive rsity of pressure [place] [facility] Heart rate 2021-03-15 00:14:00 100 /min Universi ty of [place] [facility] Body temperature 2021-03-15 00:14:00 37.33 Radha Univ ersity of [place] [facility] Respiratory rate 2021-03-15 00:14:00 24 /min Univ ersity of [place] [facility] Body height 2021-03-15 00:14:00 160 cm Universi ty of [place] [facility] Body weight 2021-03-15 00:14:00 58.968 kg Universi ty of [place] [facility] BMI 2021-03-15 00:14:00 23.03 kg/m2 Universi ty of [place] [facility] Oxygen saturation in 2021-03-15 00:14:00 98 /min University of Arterial blood by [facility] Pulse oximetry Branch Systolic blood 2021-02-19 18:00:00 131 mm[Hg] Univer sity of pressure [place] [facility] Diastolic blood 2021-02-19 18:00:00 80 mm[Hg] Unive rsity of pressure [facility] Heart rate 2021-02-19 18:00:00 83 /min [facility] Respiratory rate 2021-02-19 18:00:00 18 /min [facility] Oxygen saturation in 2021-02-19 18:00:00 100 /min [facility] Arterial blood by [facility] Pulse oximetry [place] Body temperature 2021-02-19 15:47:00 37 Radha [facility] Body height 2021-02-19 15:47:00 160 cm [facility] Body weight 2021-02-19 15:47:00 58.968 kg [facility] BMI 2021-02-19 15:47:00 23.03 kg/m2 [facility] Procedures Procedure Date / Time Performing Clinician Source Performed SARS-COV-2 COVID-19 2021-05-24 14:23:12 Doctor Unassigned, [facility] VACCINE,0.3ML,IM (PFIZER) [place] [facility] SARS-COV-2 COVID-19 2021-05-03 14:59:29 Doctor Unassigned, [facility] [place] VACCINE,0.3ML,IM (PFIZER) [place] [facility] EMERGENCY SERVICES 2021-04-16 05:01:00 Doctor Joe, [facility] AGREEMENTS AND [place] [facility] [place] AUTHORIZATIONS URINALYSIS 2021-03-17 03:09:00 [facility] XR CHEST 1 VW 2021-03-17 01:45:07 [facility] TROPONIN I 2021-03-17 01:35:00 [facility] COMP. METABOLIC PANEL 2021-03-17 01:35:00 [facility] ([id number]) [facility] CBC WITH DIFF 2021-03-17 01:35:00 [facility] N-TERMINAL PRO-BNP 2021-03-17 01:35:00 [facility] COVID-19 (ID NOW RAPID 2021-03-17 00:58:00 Brian Ray [facility] TESTING) Medical Branch CONSENT/REFUSAL FOR 2021-03-17 00:32:59 [facility] DIAGNOSIS AND TREATMENT [place] Medical Branch COVID-19 (ID NOW RAPID 2021-02-19 17:04:00 [facility]ali [facility] TESTING) Medical Branch CT ABDOMEN PELVIS W 2021-02-19 16:41:18 Anali Patel [facility] CONTRAST Medical Branch LIPASE 2021-02-19 15:58:00 Anali Patel [facility] o [facility] COMP. METABOLIC PANEL 2021-02-19 15:58:00 Anali Patel [facility] ([id number]) Medical Branch CBC WITH DIFF 2021-02-19 15:58:00 Eliana [facility] URINALYSIS 2021-02-19 15:58:00 Eliana [facility] NOTICE OF PRIVACY 2021-02-19 15:30:46 Doctor Joe [facility] PRACTICES [place] [facility] [place] CONSENT/REFUSAL FOR 2021-02-19 15:30:30 Doctor Joe [facility] DIAGNOSIS AND TREATMENT [place] [facility] Encounters Start End Encounter Admission Attending Care Care Encounter Source Date/Time Date/Time Type Type Clinicians Facility Department ID 2021-05-20 Emergency [facility] [id number] Univers 18:48:04 [facility] 2021-05-20 Emergency [facility] [id number] Univers 12:43:40 [facility] 2021-11-21 2021-11-21 Outpatient R [facility] [id number] Univers 09:40:00 [facility]40[id number] 2021-05-24 Outpatient R [facility] [id number] Univers 09:30:00 09:30:00 [id number] [facility] 2021-05-24 2021-05-24 Outpatient R SHILPA FREDERICK [facility] [id number] Univers 09:30:00 09:30:[address] [facility] 2021-05-24 2021-05-24 Imm/Inj Vaccine, [facility] [place] [id number] Univers 08:47:51 08:57:51 Visit Shilpa [place] [id number] ity of [place] [facility] [id number] [facility] 225 Branch 2021-05-03 2021-05-03 Outpatient R SHILAP FREDERICK [facility] [id number] Univers 09:40:00 09:59:35 ity of [facility] 2021-05-03 2021-05-03 Imm/Inj Vaccine, [facility] [place] 1.2.840.114 [id number] Univers 09:17:43 09:59:35 Visit Shilpa [place] [id number] ity [place] [id number] [facility] 225 [place] 2021-05-03 2021-05-03 Outpatient R [facility] [id number] Univers 09:40:00 09:40:00 [id number] ity of [facility] 2021-04-16 2021-04-16 Orders Doctor EWELINA [id number] Univers 00:00:00 00:00:00 Only Unassigned, [place] [id number] ity of [place] [facility] 4.2.7.2.686 Javier as [id number] [facility] 009 Branch 2021-03-17 2021-03-17 Telephone EWELINA Nava [id number] Univers 00:00:00 00:00:00 Aneatrice [place] [id number] ity of [facility] 4.2.7.2.686 Javier as [id number] [facility] 019 Branch 2021-03-16 2021-03-16 Emergency Palmer [facility] [id number] Univers 20:08:00 23:24:00 Fabrice Har[place] [id number] i ty of [place] [id number] [facility] 084 Branch 2021-03-14 2021-03-14 Urgent Lydia Desouza [facility] 1.2.840.114 [id number] Univers 18:59:34 20:19:13 Care Unknown, Attending [facility] [id number] ity [facility] 4.2.7.2.686 Javier as Prem?Blea [id number] [place] [address] Medical Office [facility] 2021-03-14 2021-03-14 Outpatient R [facility] [id number] Univers 19:00:00 19:00:00 [id number] 2021-03-14 2021-03-14 Outpatient R UNKNOWN, [facility] [id number] Univers 19:00:00 19:00:00 [facility] 2021-02-19 2021-02-19 Emergency Patel, [facility] [id number] Univers 10:49:00 14:48:00 Anali Har[place] [id number] i ty [place] [id number] [address] 2019-03-09 2019-03-09 [facility]berley [facility] 1.2.840.114 [id number] 00:00:00 00:00:00 Yehuda Harrell [id number] [place] 4.2.7.2.686 Professio [id number] [address] 2019-03-09 2019-03-09 [facility] 1.2.840.114 [id number] Univers 00:00:00 00:00:00 Yehuda Harrell [id number] [facility] [place] [id number] [address] Results Test Description Test Time Test Comments Results Result Comments Source URINALYSIS 2021-03-17 03:22:48 Test Item Value Reference Range Interpretation Comme nts APPEARANCE (test code = Hazy Clear A 7717041591) COLOR (test code = 1892770302) Yellow Yellow PH (test code = 1227105443) 4.8-8.0 SP GRAVITY (test code = 1.003-1.030 5786310857) GLU U QUAL (test code = Normal Normal 8037738759) BLOOD (test code = 9158056646) Negative Negative Interference from ascorbic acid may cause false negative results. KETONES (test code = 0551703198) 5 mg/dL Negative A PROTEIN (test code = 2887-8) Negative Negative UROBILIN (test code = 4.0 mg/dL Normal A 3907943833) BILIRUBIN (test code = Negative Negative 6156929782) NITRITE (test code = 8631626731) Negative Negative [place] (test code = Negative Negative 9278234627) RBC/HPF (test code = 9298406748) See_Comment [Automated message] The system which ge nerated this result transmit sherice reference range: 0 - 3 HP F. The reference range was not used to interpret th is result as normal/abnormal . WBC/HPF (test code = 5575641482) <1 See_Comment [Automated message] The system which ge nerated this result transmit sherice reference range: 0 - 5 HP F. The reference range was not used to interpret th is result as normal/abnormal . BACTERIA (test code = Few Negative A 9512033496) SQ EPITH (test code = HPF 7556858555) Lab Interpretation (test code = Abnormal 14547-9) [facility]48 Test Item Value Reference Range Interpretation Comments APPEARANCE (test code = Hazy Clear A 0332906875) COLOR (test code = Yellow Yellow 6092403861) PH (test code = 4.8-8.0 9041093655) SP GRAVITY (test code = 1.003-1.030 6306822426) GLU U QUAL (test code = Normal Normal 8099825040) BLOOD (test code = Negative Negative 5049409769) KETONES (test code = 5 mg/dL Negative A 8467036806) PROTEIN (test code = Negative Negative 2887-8) UROBILIN (test code = 4.0 mg/dL Normal A 0787250348) BILIRUBIN (test code = Negative Negative 7682608727) NITRITE (test code = Negative Negative 8581434697) [place] (test code = Negative Negative [id number]) RBC/HPF (test code = See_Comment [Autom ated message] 1161336503) The system [employer] generated this result transmit sherice reference range : 0 - 3 HPF. The refe rence range was not u sed to interpret th is result as normal/abnormal . WBC/HPF (test code = <1 See_Comment [Autom ated message] 3209979004) The system [employer] generated this result transmit sherice reference range : 0 - 5 HPF. The refe rence range was not u sed to interpret th is result as normal/abnormal . BACTERIA (test code = Few Negative A 4584506115) SQ EPITH (test code = HPF 4609953257) Lab Interpretation (test Abnormal code = 47481-7) [facility] [id number] 02:45:00 Test Item Value Reference Interpretation Comments Range TROPONIN I (test 0.002 ng/mL See_Comment [Automated code = 3455525054) message] The system which generated this result [...] biotin. Lab Interpretation Normal (test code = 08214-6) [facility] [id number] 02:45:00 Test Item Value Reference Range Interpretation Comments TROPONIN I (test code = 0.002 ng/mL See_Comment [Au tomated 5075349628) message] The sy stem which generated this result transmitted reference range : <=0.034. The reference range was not used to interpret this result as normal/abnormal . LYNDSAY (test code = LYNDSAY) Lab Interpretation Normal (test code = 96740-4) [id number] 02:41:57 Test Item Value Reference Range Interpretation Comments NT-proBNP (test code 169 pg/mL See_Comment H [Autom ated = 2863483331) message] The system which generated this result transmitted reference range : <=125. The reference range was not used to interpret this result as normal/abnormal . LYNDSAY (test code = LYNDSAY) Biotin has been reported to cause a negative bias, interpret results relative to patient's use of biotin. Lab Interpretation Abnormal (test code = 84550-2) [id number] 02:41:57 Test Item Value Reference Range Interpretation Comments NT-proBNP (test code = 169 pg/mL See_Comment H [Aut omated message] 9721785702) The system [employer] generated this result transmit sherice reference range : <=125. The refe rence range was not u sed to interpret th is result as normal/abnormal . LYNDSAY (test code = LYNDSAY) Lab Interpretation (test Abnormal code = 32454-5) [facility]. METABOLIC PANEL (31325)2021-03-17 02:09:13 Test Item Value Reference Range Interpretation Comments NA (test code = 137 mmol/L 135-145 1705370135) K (test code = 4.2 mmol/L 3.5-5.0 0596773279) CL (test code = 102 mmol/L 98-108 2826217179) CO2 TOTAL (test code = 25 mmol/L 23-31 3403441905) AGAP (test code = 2-16 0177691372) BUN (test code = 18 mg/dL 7-23 8671893330) GLUCOSE (test code = 144 mg/dL 70-110 H 0109772524) CREATININE (test code = 0.77 mg/dL 0.50-1.04 4360871053) TOTAL BILI (test code = 0.4 mg/dL 0.1-1.1 8578612292) CALCIUM (test code = 8.9 mg/dL 8.6-10.6 8821780847) T PROTEIN (test code = 6.8 g/dL 6.3-8.2 4656757354) ALBUMIN (test code = 3.9 g/dL 3.5-5.0 5405408198) ALK PHOS (test code = 84 U/L 34-122 5984659418) ALTv (test code = 13 U/L 35 1742-6) AST(SGOT) (test code = 17 U/L 13-40 1751130643) eGFR (test code = mL/min/1.73m2 1101533277) LYNDSAY (test code = LYNDSAY) Association of [...] tests). Lab Interpretation Abnormal (test code = 35545-5) [facility]. METABOLIC PANEL (80983)2021-03-17 02:09:13 Test Item Value Reference Range Interpretation Comments NA (test code = 0606687971) 137 mmol/L 135-145 K (test code = 7735355775) 4.2 mmol/L 3.5-5.0 CL (test code = 1131140397) 102 mmol/L 98-108 CO2 TOTAL (test code = 6775068760) 25 mmol/L 23-31 AGAP (test code = 5957673036) 2-16 BUN (test code = 7450586925) 18 mg/dL 7-23 GLUCOSE (test code = 4800703235) 144 mg/dL 70-110 H CREATININE (test code = 0.77 mg/dL 0.50-1.04 1546719662) TOTAL BILI (test code = 0.4 mg/dL 0.1-1.8 5151442489) CALCIUM (test code = 5598605508) 8.9 mg/dL 8.6-10.6 T PROTEIN (test code = 9743576213) 6.8 g/dL 6.3-8.2 ALBUMIN (test code = 0349250099) 3.9 g/dL 3.5-5.0 ALK PHOS (test code = 0495827951) 84 U/L 34-122 ALTv (test code = 1742-6) 13 U/L 5-35 AST(SGOT) (test code = 0619180973) 17 U/L 13-40 eGFR (test code = 8289141380) mL/min/1.73m2 LYNDSAY (test code = LYNDSAY) Lab Interpretation (test code = Abnormal 59398-2) [facility] WITH [id number] 01:56:33 Test Item Value Reference Range Interpretation Comments WBC (test code = See_Comment H [Automated 6790-2) message] The sy stem which generated this result transmitted reference range : 4.30 - 11.10 10*3/?L. The reference range was not used to interpret this result as normal/abnormal . RBC (test code = See_Comment [Automated 949-8) message] The sy stem which generated this [...] (test code = 55.5 fL 39.0-49.9 H 88749-4) RDW-CV (test code = 18.9 % 12.0-15.5 H 788-0) PLT (test code = See_Comment H [Automated 777-3) message] The sy stem which generated this result transmitted reference range : 166 - 358 10*3/ ?L. The reference r zoe was not used to interpret this result as normal/abnormal . MPV (test code = 8.2 fL 9.5-12.9 L 07528-5) NRBC/100 WBC (test See_Comment [Automat ed code = 4591344938) message] The system which generated this result transmitted reference range : 0.0 - 10.0 /100 WBCs. The refer ence range was not u sed to interpret th is result as normal/abnormal . NRBC x10^3 (test code <0.01 See_Comment [Auto mated = 6087224466) message] The s ystem which generated this result transmitted reference range : 10*3/?L. The reference range was not used to interpret this result as normal/abnormal . GRAN MAT (NEUT) % 61.7 % (test code = 770-8) IMM GRAN % (test code 0.80 % = 2671581202) LYMPH % (test code = 28.5 % 736-9) MONO % (test code = 6.3 % 5905-5) EOS % (test code = 1.8 % 713-8) BASO % (test code = 0.9 % 706-2) GRAN MAT x10^3(ANC) 7.31 10*3/uL 1.88-7.09 H (test code = 6362913984) IMM GRAN x10^3 (test 0.09 10*3/uL 0.00-0.06 H code = 8263050310) LYMPH x10^3 (test code 3.38 10*3/uL 1.32-3.29 H = 731-0) MONO x10^3 (test code 0.75 10*3/uL 0.33-0.92 = 742-7) EOS x10^3 (test code = 0.21 10*3/uL 0.03-0.39 711-2) BASO x10^3 (test code 0.11 10*3/uL 0.01-0.07 H = 704-7) Lab Interpretation Abnormal (test code = 52644-0) [facility] WITH [id number] 01:56:33 Test Item Value Reference Range Interpretation [...] (test code = 55.5 fL 39.0-49.9 H 56178-0) RDW-CV (test code = 18.9 % 12.0-15.5 H 788-0) PLT (test code = See_Comment H [Automated 777-3) message] The sy stem which generated this result transmitted reference range : 166 - 358 10*3/ ?L. The reference r zoe was not used to interpret this result as normal/abnormal . MPV (test code = 8.2 fL 9.5-12.9 L 11477-3) NRBC/100 WBC (test See_Comment [Automat ed code = 8606271809) message] The system which generated this result transmitted reference range : 0.0 - 10.0 /100 WBCs. The refer ence range was not u sed to interpret th is result as normal/abnormal . NRBC x10^3 (test code <0.01 See_Comment [Auto mated = 7575341120) message] The s [employer] which generated this result transmitted reference range : 10*3/?L. The reference range was not used to interpret this result as normal/abnormal . GRAN MAT (NEUT) % 61.7 % (test code = 770-8) IMM GRAN % (test code 0.80 % = 1741466726) LYMPH % (test code = 28.5 % 736-9) MONO % (test code = 6.3 % 5905-5) EOS % (test code = 1.8 % 713-8) BASO % (test code = 0.9 % 706-2) GRAN MAT x10^3(ANC) 7.31 10*3/uL 1.88-7.09 H (test code = 2651347797) IMM GRAN x10^3 (test 0.09 10*3/uL 0.00-0.06 H code = 9511008367) LYMPH x10^3 (test code 3.38 10*3/uL 1.32-3.29 H = 731-0) MONO x10^3 (test code 0.75 10*3/uL 0.33-0.92 = 742-7) EOS x10^3 (test code = 0.21 10*3/uL 0.03-0.39 711-2) BASO x10^3 (test code 0.11 10*3/uL 0.01-0.07 H = 704-7) Lab Interpretation Abnormal (test code = 58953-4) [facility]2021-03-17 01:38:12 Test Item Value Reference Range Interpretation Comments SARS-CoV-2 Rapid ID NOW Not Detected Not Detected (test code = 88464-8) LYNDSAY (test code = LYNDSAY) ID NOW COVID-19 Assay is an isothermal nucleic acid amplification test intended for the qualitative detection of nucleic acid from SARS-CoV-2 viral RNA in nasopharyngeal (WIDTH STRIPPER) specimens. It is used under Emergency Use [...] indicated. Lab Interpretation Normal (test code = 50156-8) [facility]2021-03-17 01:38:12 Test Item Value Reference Range Interpretation Comments SARS-CoV-2 Rapid ID NOW (test Not Detected Not Detected code = 33078-1) LYNDSAY (test code = LYNDSAY) Lab Interpretation (test code = Normal 30877-1) [facility]19 17:42:45 Test Item Value Reference Range Interpretation Comments SARS-CoV-2 Rapid ID NOW Not Detected Not Detected (test code = 79644-4) LYNDSAY (test code = LYNDSAY) ID NOW COVID-19 Assay is an isothermal nucleic acid amplification test intended for the qualitative detection of nucleic acid from SARS-CoV-2 viral RNA in nasopharyngeal (WIDTH STRIPPER) specimens. It is used under Emergency Use [...] indicated. Lab Interpretation Normal (test code = 12188-8) [facility] W [id number] 17:24:55Thickening of the gastric antrum and duodenal bulb could be fromunderdistention, the differential would include sequela of peptic ulcerdisease. No findings of ulcer perforation. Otherwise, no acute intra- abdominal or pelvic abnormality. Stable thickening and nodularity of the left adrenal gland. RL: [phone] Patient name: EUSEBIA ONTIVEROSB: 1970 51 years [...] nodularity of the left adrenal gland.RL: [phone] [facility]ysis[facility] 17:03:40 Test Item Value Reference Range Interpretation Comments APPEARANCE (test code = Hazy Clear A 0486076228) COLOR (test code = Mabel Yellow A 6390060970) PH (test code = 4.8-8.0 0035646954) SP GRAVITY (test code = 1.003-1.030 H 6793856069) GLU U QUAL (test code = Normal Normal 0813023533) BLOOD (test code = Negative Negative 8282240565) KETONES (test code = 5 mg/dL Negative A 6562260391) PROTEIN (test code = 30 mg/dL Negative A 2887-8) UROBILIN (test code = 4.0 mg/dL Normal A 8047843887) BILIRUBIN (test code = 4 mg/dL Negative A 4118525988) NITRITE (test code = Negative Negative 9337234514) LEUK GRUPO (test code = Negative Negative 5565184460) RBC/HPF (test code = See_Comment H [Autom ated message] 8791109237) The system [employer] generated this result transmit sherice reference range : 0 - 3 HPF. The refe rence range was not u sed to interpret th is result as normal/abnormal . WBC/HPF (test code = See_Comment H [Autom ated message] 2000660658) The system [employer] generated this result transmit sherice reference range : 0 - 5 HPF. The refe rence range was not u sed to interpret th is result as normal/abnormal . BACTERIA (test code = Few Negative A 2898547678) MUCOUS (test code = Moderate Negative LPF A 6291069971) SQ EPITH (test code = HPF 5533917193) CA OXALATE (test code = See_Comment H [Au tomated message] 3192784450) The system [employer] generated this result transmit sherice reference range : <=1 HPF. The refere nce range was not u sed to interpret th is result as normal/abnormal . Ictotest (test code = Negative 9900826402) Lab Interpretation (test Abnormal code = 34690-2) [facility] Met[facility] [id number] 16:34:55 Test Item Value Reference Range Interpretation Comments NA (test code = 139 mmol/L 135-145 3812306055) K (test code = 4.3 mmol/L 3.5-5.0 8113902104) CL (test code = 105 mmol/L 98-108 6000091794) CO2 TOTAL (test code 26 mmol/L 23-31 = 3424039868) AGAP (test code = 2-16 0698204040) BUN (test code = 11 mg/dL 7-23 8440360484) GLUCOSE (test code = 95 mg/dL 70-110 2364416423) CREATININE (test code 0.70 mg/dL 0.50-1.04 = 1341915969) TOTAL BILI (test code 0.6 mg/dL 0.1-1.1 = 2022303243) CALCIUM (test code = 8.9 mg/dL 8.6-10.6 3502135333) T PROTEIN (test code 7.7 g/dL 6.3-8.2 = 0589305313) ALBUMIN (test code = 4.1 g/dL 3.5-5.0 2889996038) ALK PHOS (test code = 79 U/L 34-122 9673194965) ALTv (test code = 10 U/L 5-35 1742-6) AST(SGOT) (test code 22 U/L 13-40 = 2460224459) eGFR (test code = mL/min/1.73m2 8919147040) LYNDSAY (test code = LYNDSAY) Association of [...] or urine or abnormalities in imaging tests). [facility], [id number] 16:34:14 Test Item Value Reference Range Interpretation Comments LIPASE (test code = 1839032740) 45 U/L 0-220 Lab Interpretation (test code = Normal 49670-2) [facility] with [id number] 16:21:12 Test Item Value Reference Range Interpretation Comments WBC (test code = See_Comment [Automated 6790-2) message] The sy stem which generated this [...] (test code = 54.4 fL 39.0-49.9 H 25005-3) RDW-CV (test code = 18.3 % 12.0-15.5 H 788-0) PLT (test code = See_Comment H [Automated 777-3) message] The sy stem which generated this result transmitted reference range : 166 - 358 10*3/ ?L. The reference r zoe was not used to interpret this result as normal/abnormal . MPV (test code = 8.5 fL 9.5-12.9 L 17163-3) NRBC/100 WBC (test See_Comment [Automat ed code = 5596324434) message] The system which generated this result transmitted reference range : 0.0 - 10.0 /100 WBCs. The refer ence range was not u sed to interpret th is result as normal/abnormal . NRBC x10^3 (test code <0.01 See_Comment [Auto mated = 3505808866) message] The s ystem which generated this result transmitted reference range : 10*3/?L. The reference range was not used to interpret this result as normal/abnormal . GRAN MAT (NEUT) % 78.3 % (test code = 770-8) IMM GRAN % (test code 0.40 % = 2050738572) LYMPH % (test code = 15.4 % 736-9) MONO % (test code = 4.8 % 5905-5) EOS % (test code = 0.1 % 713-8) BASO % (test code = 1.0 % 706-2) GRAN MAT x10^3(ANC) 7.15 10*3/uL 1.88-7.09 H (test code = 2836157162) IMM GRAN x10^3 (test 0.04 10*3/uL 0.00-0.06 code = 4194200720) LYMPH x10^3 (test code 1.41 10*3/uL 1.32-3.29 = 731-0) MONO x10^3 (test code 0.44 10*3/uL 0.33-0.92 = 742-7) EOS x10^3 (test code = <0.03 0.03-0.39 L 711-2) BASO x10^3 (test code 0.09 10*3/uL 0.01-0.07 H = 704-7) Lab Interpretation Abnormal (test code = 14308-7) [facility]"
[2021-08-28 18:04] LABS: Absolute Lymphocytes (CBC) 2.3 K/uL (0.7-4.9); Hematocrit 36.7 % (36.0-45.0); MPV 5.9 fL (7.6-11.3)
[2021-08-28 18:10] LABS: Protime INR 0.95
[2021-08-28] MEDS ORDERED: LEVETIRACETAM 500 MG/5 ML VIAL IV ONE (18:29)
[2021-08-28] MEDS ORDERED: DIAZEPAM 10 MG/2 ML INJ SYRINGE ONE (18:30)
[2021-08-28] MEDS ORDERED: ONDANSETRON 4 MG/2 ML VIAL ONE ×2 (18:30→21:51)
[2021-08-28] MEDS ORDERED: MORPHINE 4 MG/ML SYR ONE ×2 (18:30→21:51)
[2021-08-28] MEDS ORDERED: NA CHLORIDE 0.9% 250 ML ONE (18:30)
--- NOTE | 2021-08-28 18:34 | RAD REPORT ---
EXAM DESCRIPTION: CT - CTHCSPWOC - 08/28/2021 6:23 pm CLINICAL HISTORY: Trauma, head and neck injury. seizure, head injury COMPARISON: Head C Spine Mpr Wo Con dated 04/05/2021; Neck Angio dated 08/06/2020; Head C Spine Mpr Wo Con dated 03/23/2019; C Spine Wo Con dated 01/08/2018 TECHNIQUE: Axial 5 mm thick images of the head were obtained. Axial 2 mm thick images of the cervical spine were obtained with sagittal and coronal reconstruction images generated and reviewed. All CT scans are performed using dose optimization technique as appropriate and may include automated exposure control or mA/KV adjustment according to patient size. FINDINGS: CT HEAD WITHOUT CONTRAST: No acute hemorrhage, hydrocephalus or extra-axial collection is identified.No areas of brain edema or midline shift. The paranasal sinuses and mastoids are clear.The calvarium is intact. CT CERVICAL SPINE WITHOUT CONTRAST: No fracture or subluxation.No prevertebral soft tissues swelling is identified. Status post C4 throug h C7 ACDF. No evidence of hardware complications. Anterior osteophytes noted at C3-4 and C7-T1. IMPRESSION: No acute intracranial or cervical spine findings.
[2021-08-28 18:41] LABS: ALT/SGPT 19 U/L (12-78); AST/SGOT 12 U/L (15-37); Albumin 3.6 g/dL (3.4-5.0); Alkaline Phosphatase 69 U/L (45-117); BUN Blood Urea Nitrogen 11 mg/dL (7-18); Bicarbonate 23 mmol/L (21-32); Bilirubin Direct < 0.1 mg/dL (0-0.2); Bilirubin Total 0.2 mg/dL (0.2-1.0); Glucose Level 92 mg/dL (74-106); Potassium 3.9 mmol/L (3.5-5.1); Protein, Total 7.1 g/dL (6.4-8.2); Sodium Level 137 mmol/L (136-145)
--- NOTE | 2021-08-28 19:03 | RAD REPORT ---
EXAM DESCRIPTION: RAD - Wrist Left 3 View - 08/28/2021 6:23 pm CLINICAL HISTORY: wrist pain COMPARISON: No comparisons FINDINGS: No acute fracture. No malalignment. No significant focal degenerative changes. IMPRESSION: No acute osseous abnormality involving the left wrist.
--- NOTE | 2021-08-28 19:03 | RAD REPORT ---
EXAM DESCRIPTION: RAD - Hand Left 3 View - 08/28/2021 6:23 pm CLINICAL HISTORY: hand injury COMPARISON: Hand Left 3 View dated 10/11/2020 FINDINGS/IMPRESSION: No acute fracture. No malalignment. No significant focal degenerative changes.
[2021-08-28 19:09] LABS: Urine Blood 1+ (Negative); Urine Glucose Negative (Negative); Urine Protein Negative (Negative); Urine Specific Gravity >=1.030 (1.005-1.030)
[2021-08-28 19:57] LABS: Barbiturates NEGATIVE (NEGATIVE); Benzodiazepines NEGATIVE (NEGATIVE); Cocaine NEGATIVE (NEGATIVE); METHAMPHETAM NEGATIVE (NEGATIVE); Methadone NEGATIVE (NEGATIVE); Opiates POSITIVE (NEGATIVE); Phencyclidine NEGATIVE (NEGATIVE); THC Cannibis NEGATIVE (NEGATIVE)
--- NOTE | 2021-08-28 20:40 | RAD REPORT ---
EXAM DESCRIPTION: CT - CTFB CLINICAL HISTORY: fall COMPARISON: <Comparisons> TECHNIQUE: Axial 2 mm thick images of the face were obtained with sagittal and coronal reconstructio n images. All CT scans are performed using dose optimization technique as appropriate and may include automated exposure control or mA/KV adjustment according to patient size. FINDINGS: No acute facial bone fracture is seen.The mandible is intact. The globes and orbital contents are grossly unremarkable.Mucosal thickening near both maxillary antru ms. The left ostiomeatal unit is occluded. ACDF in the cervical spine. IMPRESSION: No acute soft tissue abnormality involving the face. No fractures or evidence of an infl ammatory process/abscess.
--- NOTE | 2021-08-28 22:08 | EDPHYS ---
Physician Documentation [facility] Name: Heather Coon Age: 51 yrs Sex: Female : 1970 Arrival Date: 08/28/2021 Time: 17:38 Bed 13 Private MD: JACKELINE Physician Derrick Santillan HPI: 08/28 18:14 This 51 yrs old Female presents to ER via EMS with complaints of Seizure. jmm 18:14 The patient presents after having a single isolated seizure. Character of seizure(s): jmm Loss of consciousness: the patient experienced loss of consciousness, Motor activity: generalized, Incontinence: none, Apnea: it is not know whether or not the patient experienced apnea, Circulation: it is unknown whether or not the patient experienced a disturbance in pulse. This is a 51 year old female with anxiety, bipolar disorder, cancer-cervical, chronic pain, depression that presents to the ED after a seizure which occurred just prior to arrival. Patient states she has not been taking her keppra as directed. Complains of facial pain, and left wrist pain. . MANAGER DRUG: 17:41 LMP N/A - Post-menopause jl7 Historical: - Allergies: 17:41 Green Tea; jl7 17:41 Prozac; jl7 - Home Meds: 17:41 levetiracetam Oral [Active]; Lexapro Oral [Active]; jl7 - PMHx: 17:41 Anxiety; Bipolar disorder; Cancer-Cervical; Chronic pain; Depression; Diverticulitis; jl7 Herniated Back Disc; Hypertension; intestinal mass; Myocardial infarction; pt reports hx of seizures; Spastic Muscles; stroke; - PSHx: 17:41 cervical fusion; Cholecystectomy; jl7 - Immunization history:: Client reports receiving the 2nd dose of the Covid vaccine. - Social history:: Smoking status: Patient reports the use of cigarette tobacco products, smokes one-half pack cigarettes per day. ROS: 18:14 Constitutional: Negative for fever, chills, and weight loss, Cardiovascular: Negative jmm for chest pain, palpitations, and edema, Respiratory: Negative for shortness of breath, cough, wheezing, and pleuritic chest pain, Abdomen/GI: Negative for abdominal pain, nausea, vomiting, diarrhea, and constipation. 18:14 MS/extremity: Positive for pain. 18:14 Neuro: Positive for loss of consciousness, seizure activity. 18:14 All other systems are negative. Exam: 18:14 Constitutional: The patient appears alert, awake, anxious, uncomfortable. [facility] 18:14 Head/face: Noted is left sided facial erythema noted. 18:14 Musculoskeletal/extremity: ROM: intact in all extremities, left wrist ttp, compartments are soft, abrasion noted to the left wrist, full radial pulse. 18:14 Skin: Appearance: Color: normal in color. 18:14 Neuro: Orientation: is normal, Mentation: is normal, Memory: is normal. 18:14 Psych: Behavior/mood is pleasant, cooperative. Vital Signs: 17:38 BP 148 / 87; Pulse 94; Resp 19; Temp 98.7; Pulse Ox 96% ; Weight 74.84 kg; Height 5 ft. jl7 3 in. (160.02 cm); Pain 10/10; 20:32 BP 145 / 90; Pulse 87; Resp 14; Pulse Ox 99% on R/A; Pain 5/10; carolynn 22:08 BP 139 / 74; Pulse 81; Resp 16; Pulse Ox 100% on R/A; Pain 3/10; carolynn 22:30 BP 136 / 88; Pulse 80; Resp 16; Pulse Ox 98% on R/A; Pain 0/10; carolynn 17:38 Body Mass Index 29.23 (74.84 kg, 160.02 cm) jl7 [place] Coma Score: 17:41 Eye Response: spontaneous(4). Verbal Response: oriented(5). Motor Response: obeys jl7 commands(6). Total: 15. MDM: 17:40 Patient medically screened. [facility] 18:24 Data reviewed: vital signs, nurses notes. Counseling: I had a detailed discussion with [facility] the patient and/or guardian regarding:. 22:06 Counseling: I had a detailed discussion with the patient and/or guardian regarding: the [facility] historical points, exam findings, and any diagnostic results supporting the discharge/admit diagnosis, lab results, radiology results, the need for outpatient follow up, to return to the emergency department if symptoms worsen or persist or if there are any questions or concerns that arise at home. ED course: due to snuff box tenderness. advised the patient to follow up with ortho for further evaluation. Patient had stated she did not take recommended dose of keppra. Advised to follow up with neuro and ortho. Patient understood and agrees with the plan of care. . 08/28 17:40 Order name: Acetaminophen; Complete Time: 19:16 [facility] 08/28 17:40 Order name: Basic Metabolic Panel; Complete Time: 19:16 [facility] 08/28 17:40 Order name: CBC with Diff; Complete Time: 18:08 [facility] 08/28 17:40 Order name: ETOH Level; Complete Time: 19:16 [facility] 08/28 17:40 Order name: Hepatic Function; Complete Time: 19:16 [facility] 08/28 17:40 Order name: PT-INR; Complete Time: 18:11 [facility] 08/28 17:40 Order name: Ptt, Activated; Complete Time: 18:11 [facility] 08/28 17:40 Order name: Salicylate; Complete Time: 19:16 [facility] 08/28 17:40 Order name: Urine Drug Screen; Complete Time: 19:58 [facility] 08/28 17:42 Order name: CT Head C Spine; Complete Time: 18:38 [facility] 08/28 17:42 Order name: Wrist Left (3 View) XRAY; Complete Time: 19:16 [facility] 08/28 19:09 Order name: Urine Dipstick-Ancillary; Complete Time: 19:16 [facility] 08/28 19:09 Order name: Urine --Ancillary (enter results) [facility] 08/28 19:10 Order name: Urine --Ancillary [facility] 08/28 17:40 Order name: EKG; Complete Time: 17:40 [facility] 08/28 17:40 Order name: EKG - Nurse/Tech; Complete Time: 17:46 [facility] 08/28 17:40 Order name: IV Saline Lock; Complete Time: 17:53 [facility] 08/28 17:40 Order name: Labs collected and sent; Complete Time: 17:53 [facility] 08/28 17:40 Order name: Suicide Screening ([place]); Complete Time: 17:44 [facility] 08/28 17:42 Order name: Hand Left 3 View XRAY; Complete Time: 19:16 [facility] 08/28 18:39 Order name: CT Facial Bones W/O Con; Complete Time: 20:42 [facility] 08/28 21:53 Order name: Thumb Spica Splint; Complete Time: 22:08 [facility] Administered Medications: 18:46 Drug: Keppra (levETIRAcetam) 1000 mg Route: IV; Rate: calculated rate; Site: right hand;ap3 20:48 Follow up: Response: No adverse reaction; IV Intake: 250ml carolynn 18:47 Drug: Valium (diazepam) 5 mg Route: IVP; Site: right hand; ap3 18:47 Drug: morphine 4 mg Route: IVP; Site: right hand; ap3 18:47 Drug: Zofran (Ondansetron) 4 mg Route: IVP; Site: right hand; ap3 21:59 Drug: Zofran (Ondansetron) 4 mg Route: IVP; Site: right hand; carolynn 22:00 Follow up: Response: No adverse reaction carolynn 22:00 Drug: morphine 4 mg Route: IVP; Site: right hand; carolynn 22:00 Follow up: Response: No adverse reaction carolynn Disposition: 08/29 08:23 Co-signature as Attending Physician, Derrick Santillan MD I agree with the assessment and fabrice plan of care. Disposition Summary: 08/28/21 22:08 Discharge Ordered Location: Home jmm Condition: Stable jmm Diagnosis - Other specified sprain of left wrist jmm - Other seizures jmm Followup: jmm - With: Nahid Barron MD - When: 2 - 3 days - Reason: Recheck today's complaints, Continuance of care, Re-evaluation by your physician Discharge Instructions: - Discharge Summary Sheet jmm - Scaphoid Fracture jmm - Seizure, Adult jmm Forms: - Medication Reconciliation Form [facility] - Thank You Letter [facility] - Antibiotic Education [facility] - Prescription Opioid Use [facility] Prescriptions: - Keppra 500 mg Oral Tablet - take 1 tablet by ORAL route 3 times per day; 30 tablet; Refills: 0, Product [facility] Selection Permitted - Diclofenac Sodium 75 mg Oral Tablet Sustained Release - take 1 tablet by ORAL route 2 times per day; 30 tablet; Refills: 0, Product [facility] Selection Permitted - orphenadrine citrate 100 mg Oral Tablet Sustained Release - take 1 tablet by ORAL route 2 times per day As needed; 20 tablet; Refills: 0, [facility] Product Selection Permitted Signatures: Dispatcher [employer] Derrick Payton MD MD cha Mickail, Joel, PA PA jmm Leal, Jahala, RN RN jl7 Freida Rodriguez RN RN ap3 Lisa Caldera, RN RN carolynn
--- NOTE | 2021-08-28 22:08 | ER ---
Nurse's Notes [facility] Name: Heather Coon Age: 51 yrs Sex: Female : 1970 Arrival Date: 08/28/2021 Time: 17:38 Bed 13 Private MD: Diagnosis: Other specified sprain of left wrist;Other seizures Presentation: 08/28 17:38 Chief complaint: EMS states: Toned out for seizure, pt had another seizure in route, jl7 c/o left wrist pain and pain to left side of face. Coronavirus screen: At this time, the client does not indicate any symptoms associated with coronavirus-19. Ebola Screen: No symptoms or risks identified at this time. Initial Sepsis Screen: Does the patient meet any 2 criteria? No. Patient's initial sepsis screen is negative. Does the patient have a suspected source of infection? No. Patient's initial sepsis screen is negative. Risk Assessment: Do you want to hurt yourself or someone else? Patient reports no desire to harm self or others. Onset of symptoms was August 28, 2021. 17:38 Method Of Arrival: EMS: [facility] 17:38 Acuity: ANDER 2 jl7 Triage Assessment: 17:41 General: Appears in no apparent distress. uncomfortable, Behavior is cooperative, jl7 appropriate for age, anxious. Pain: Complains of pain in lateral aspect of left wrist Pain currently is 10 out of 10 on a pain scale. Neuro: Level of Consciousness is awake, alert, obeys commands, Oriented to person, place, time, situation. Cardiovascular: Patient's skin is warm and dry. Respiratory: Airway is patent Respiratory effort is even, unlabored, Respiratory pattern is regular, symmetrical. Derm: Skin is pink, warm \T\ dry. CLINICAL OB: 17:41 LMP N/A - Post-menopause jl7 Historical: - Allergies: 17:41 Green Tea; jl7 17:41 Prozac; jl7 - Home Meds: 17:41 levetiracetam Oral [Active]; Lexapro Oral [Active]; jl7 - PMHx: 17:41 Anxiety; Bipolar disorder; Cancer-Cervical; Chronic pain; Depression; Diverticulitis; jl7 Herniated Back Disc; Hypertension; intestinal mass; Myocardial infarction; pt reports hx of seizures; Spastic Muscles; stroke; - PSHx: 17:41 cervical fusion; Cholecystectomy; jl7 - Immunization history:: Client reports receiving the 2nd dose of the Covid vaccine. - Social history:: Smoking status: Patient reports the use of cigarette tobacco products, smokes one-half pack cigarettes per day. Screenin:43 Abuse screen: Denies threats or abuse. Denies injuries from another. Nutritional jl7 screening: No deficits noted. Tuberculosis screening: No symptoms or risk factors identified. Fall Risk No fall in past 12 months (0 pts). Secondary diagnosis (15 points) seizures, IV access (20 points). Total [place]ello Fall Scale indicates High Risk Score (45 or more points). Fall prevention measures have been instituted. Side Rails Up X 2 Placed Close to Nursing Station Frequent Obs/Assessments Occuring As available patient and family educated on Fall Prevention Program and Strategies. Assessment: 17:53 General: Appears in no apparent distress. uncomfortable, Behavior is cooperative, ab2 appropriate for age, crying. Pain: Complains of pain in left wrist Pain currently is 10 out of 10 on a pain scale. Quality of pain is described as sharp. 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 Neuro: Seizure activity reported prior to arrival. 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 Cardiovascular: No deficits noted. Denies chest pain, shortness of breath, Heart tones S1 S2 present Patient's skin is warm and dry. Rhythm is sinus rhythm. Respiratory: No deficits noted. Airway is patent Breath sounds are clear bilaterally. Denies cough, shortness of breath. GI: Abdomen is round obese, Bowel sounds present X 4 quads. Reports nausea. : No deficits noted. No signs and/or symptoms were reported regarding the genitourinary system. EENT: No deficits noted. No signs and/or symptoms were reported regarding the EENT system. Derm: No deficits noted. No signs and/or symptoms reported regarding the dermatologic system. Skin is intact, is healthy with good turgor, Skin is dry, Skin is pink, warm \T\ dry. Skin temperature is warm. Musculoskeletal: Circulation, motion, and sensation intact. Capillary refill < 3 seconds, Range of motion: limited in left wrist Reports pain in left wrist. 20:32 Reassessment: Patient appears in no apparent distress at this time. The pt has returned carolynn from x-ray for her facial bones. She c/o pain to her left hand, at her thumb joint. Minimal swelling is noted. 20:48 General: The pt's Hcg was negative. . carolynn 22:09 General: The thumb spica splint was placed to the pt's left hand. She tolerated this carolynn well. . Vital Signs: 17:38 BP 148 / 87; Pulse 94; Resp 19; Temp 98.7; Pulse Ox 96% ; Weight 74.84 kg; Height 5 ft. jl7 3 in. (160.02 cm); Pain 10/10; 20:32 BP 145 / 90; Pulse 87; Resp 14; Pulse Ox 99% on R/A; Pain 5/10; carolynn 22:08 BP 139 / 74; Pulse 81; Resp 16; Pulse Ox 100% on R/A; Pain 3/10; carolynn 22:30 BP 136 / 88; Pulse 80; Resp 16; Pulse Ox 98% on R/A; Pain 0/10; carolynn 17:38 Body Mass Index 29.23 (74.84 kg, 160.02 cm) jl7 [place] Coma Score: 17:41 Eye Response: spontaneous(4). Verbal Response: oriented(5). Motor Response: obeys jl7 commands(6). Total: 15. ED Course: 17:38 Patient arrived in ED. jl7 17:39 Octaviano Keith PA is PHCP. jmm 17:39 Derrick Santillan MD is Attending Physician. [facility] 17:40 Triage completed. jl7 17:41 Freida Rodriguez, BETH is Primary Nurse. ap3 17:41 Arm band placed on right wrist. jl7 17:43 Patient has correct armband on for positive identification. Placed in gown. Bed in low jl7 position. Call light in reach. Side rails up X2. Seizure precautions initiated. 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 Pulse ox on. NIBP on. 17:52 Inserted saline lock: 20 gauge in right wrist, using aseptic technique. Blood collected.ab2 17:53 Acetaminophen Sent. ab2 17:53 Basic Metabolic Panel Sent. ab2 17:53 CBC with Diff Sent. ab2 17:53 ETOH Level Sent. ab2 17:53 Hepatic Function Sent. ab2 17:53 PT-INR Sent. ab2 17:56 No provider procedures requiring assistance completed. ab2 18:23 CT Head C Spine In Process Unspecified. EDMS 18:23 Wrist Left (3 View) XRAY In Process Unspecified. EDMS 18:23 Hand Left 3 View XRAY In Process Unspecified. EDMS 19:03 Primary Nurse role handed off by Freida Rodriguez RN mw2 19:22 Lisa Caldera, BETH is Primary Nurse. carolynn 20:13 CT Facial Bones W/O Con In Process Unspecified. EDMS 20:13 Urine --Ancillary Sent. carolynn 20:13 Urine --Ancillary (enter results) Sent. carolynn 22:07 Nahid Barron MD is Referral Physician. tyreem 23:27 intact, bleeding controlled, No redness/swelling at site. Pressure dressing applied. carolynn Administered Medications: 18:46 Drug: Keppra (levETIRAcetam) 1000 mg Route: IV; Rate: calculated rate; Site: right hand;ap3 20:48 Follow up: Response: No adverse reaction; IV Intake: 250ml carolynn 18:47 Drug: Valium (diazepam) 5 mg Route: IVP; Site: right hand; ap3 18:47 Drug: morphine 4 mg Route: IVP; Site: right hand; ap3 18:47 Drug: Zofran (Ondansetron) 4 mg Route: IVP; Site: right hand; ap3 21:59 Drug: Zofran (Ondansetron) 4 mg Route: IVP; Site: right hand; carolynn 22:00 Follow up: Response: No adverse reaction carolynn 22:00 Drug: morphine 4 mg Route: IVP; Site: right hand; carolynn 22:00 Follow up: Response: No adverse reaction carolynn Intake: 20:48 IV: 250ml; Total: 250ml. carolynn Outcome: 20:35 Condition: stable carolynn 22:08 Discharge ordered by . willis 23:26 Discharged to home ambulatory, with family. carolynn 23:26 Discharge instructions given to patient, Instructed on discharge instructions, follow up and referral plans. medication usage, Demonstrated understanding of instructions, follow-up care, medications. 23:27 Patient left the ED. carolynn Signatures: Dispatcher [employer] EDMS Octaviano Keith PA PA jmm Leal, Jahala, RN RN jl7 Freida Rodriguez RN RN ap3 Marlyn Marrero 2 Lisa Caldera RN RN David Rene2 Corrections: (The following items were deleted from the chart) 20:34 20:32 Reassessment: Patient appears in no apparent distress at this time. The pt has carolynn returned from xray for her facial bones. She c/o pain to her right hand. carolynn
[2021-08-28 23:44] VITALS: TEMP 98.7
[2021-08-28 23:48] VITALS: BP 136/88; O2SAT 98
[2021-08-29 13:38] LABS: Urine Specific Gravity/Preg >1.030 (1.005-1.030)
== END 2021-08-28 23:27 | disposition home or self-care (01) ==
LOC: ER 17:32
DX: G40.89 Other seizures (principal); S63.592A Other specified sprain of left wrist, initial encounter; F17.210 Nicotine dependence, cigarettes, uncomplicated; I10 Essential (primary) hypertension; F31.9 Bipolar disorder, unspecified; Z88.5 Allergy status to narcotic agent; Z91.018 Allergy to other foods
CPT/HCPCS: 36415; 70450; 70486; 72125; 76377; 80048; 80076; 80307; 80320; 80329; 81003; 81025; 85025; 85610; 85730; 96374; 96375; 99284; J1953; J2405; J3360; J7050

== ENCOUNTER 2021-09-10 19:34 | Observation (INO) | payer SELFPAY ==
--- OUTSIDE RECORDS SUMMARY | 2021-09-10 19:54 | XMS REPORT | Continuity of Care Document ---
:1970 Author Organization [facility] [place] [facility] t Address [address] [place] [address] Care Team Providers Name Role Phone PCP, DOES NOT HAVE A Primary Care Physician Unavailable OTONIEL Attending Clinician Unavailable Carlito Grahami Attending Clinician Unavailable Otoniel ELIZONDO Attending Clinician Doctor Unassigned, Name Attending Clinician Unavailable Brandy CAMPOS Attending Clinician Unavailable Palmer BRONSONP Attending Clinician Deo UNISAW OPERATOR Attending Clinician Unknown Attending Clinician Unavailable UNKNOWN [...] tobacco Cigar Smoker Univ ersity of use [facility] Exposure to Not sure [place] of SARS-CoV-2 (event) [facility] Alcohol intake 2021-03-21 2021-03-21 0 /d University of 00:00:00 00:00:00 [facility] Cigarettes smoked 2021-03-14 2021-03-14 Univers ity of current (pack per 00:00:00 00:00:00 ) - Reported Branch Cigarette 2021-03-14 2021-03-14 University of pack-years 00:00:00 00:00:00 [facility] Tobacco use and 2021-03-14 2021-03-14 Never used Universit y of exposure 00:00:00 00:00:00 [facility] Sex Ass[birth year] At [birth year] Universit y of 00:00:00 00:00:00 [facility] Smoking Status Start Date Stop Date Source Current every day smoker 2021-03-14 00:00:00 Uni versity of [facility] Medications Ordered Filled Start Stop Current Ordering [...] 00 :00 dose, Sat Medical 03/16/21 at [place] 2100, STAT ondansetron 2020- No 4mg 4 [...] Slow IV ity of succ 01:57: 02:11 [place], [place] (SOLU-MEDRO 00 :00 ONCE, 1 Medic [...] Slow IV ity of succ 01:57: 02:11 [place], [place] (SOLU-MEDRO 00 :00 ONCE, 1 Medic [...] nebulizer solution 3 mL levoFLOXaci 2020- No [id number] 500mg Take 1 Univers n 500 mg 03-17 tablet by ity o f tablet 00:00: 04:59 mouth [place] 00 :00 daily for Medical 6 days. [place] levoFLOXaci 2020- No [id number] 500mg Take 1 Univers n 500 mg 03-17 tablet by ity o f tablet 00:00: 04:59 mouth [place] 00 :00 daily for Medical 6 days. [place] levoFLOXaci 2020- No [id number] 500mg Take 1 Univers n 500 mg 03-17 tablet by ity o f tablet 00:00: 04:59 mouth [place] 00 :00 daily for Medical 6 days. [place] levoFLOXaci 2020- No [id number] 500mg Take 1 Univers n 500 mg 03-17 tablet by ity o f tablet 00:00: 04:59 mouth [place] 00 :00 daily for Medical 6 days. [place] predniSONE 2020- No [id number] 30mg Take 3 Univers 10 mg 03-17 tablets by ity of tablet 00:00: 04:59 mouth [place] 00 :00 daily for Medical 4 days. Branch predniSONE 2020- No [id number] 30mg Take 3 Univers 10 mg 03-17 tablets by ity of tablet 00:00: 04:59 mouth [place] 00 :00 daily for Medical 4 days. Branch predniSONE 2020- No [id number] 30mg Take 3 Univers 10 mg 03-17 tablets by ity of tablet 00:00: 04:59 mouth [place] 00 :00 daily for Medical 4 days. Branch predniSONE 2020- No [id number] 30mg Take 3 Univers 10 mg 03-17 tablets by ity of tablet 00:00: 04:59 mouth [place] 00 :00 daily for Medical 4 days. [place] albuterol 2020- No [id number] 4{puff} 4 Puff, Univers (VENTOLIN) 03-15 Inhalation it y of inhaler 4 01:45: 00:44 [place] :[place] dose, [facility] 03/14/21 at Branch 2044, Routine dexamethaso 2020- No [id number] 10mg 10 mg, Univers ne 03-15 Intramuscu ity of (DECADRON) 01:45: 00:45 lar, ONCE, [place] injection 00 :00 1 dose, Medical 10 mg [facility] 03/14/21 at 2044, Routine albuterol Yes [id number] 2.5mg Inhale 3 Univers 2.5 mg /3 8-27 mL every 4 ity of mL (0.083 00:00: (four) [place] %) 00 hours as Medical nebulizer needed for Bran ch solution Wheezing or Shortness of Breath. albuterol Yes [id number] 2.5mg Inhale 3 Univers 2.5 mg /3 8-27 mL every 4 ity of mL (0.083 00:00: (four) [place] %) 00 hours as Medical nebulizer needed for Bran ch solution Wheezing or Shortness of Breath. albuterol Yes [id number] 2.5mg Inhale 3 Univers 2.5 mg /3 8-27 mL every 4 ity of mL (0.083 00:00: (four) [place] %) 00 hours as Medical nebulizer needed for Bran ch solution Wheezing or Shortness of Breath. albuterol Yes [id number] 2.5mg Inhale 3 Univers 2.5 mg /3 8-27 mL every 4 ity of mL (0.083 00:00: (four) [place] %) 00 hours as Medical nebulizer needed for Bran ch solution Wheezing or Shortness of Breath. albuterol Yes [id number] 2.5mg Inhale 3 Univers 2.5 mg /3 8-27 mL every 4 ity of mL (0.083 00:00: (four) [place] %) 00 hours as Medical nebulizer needed for Bran ch solution Wheezing or Shortness of Breath. albuterol 2020-0 Yes [id number] 2.5mg Inhale 3 Univers 2.5 mg /3 8-27 mL every 4 ity of mL (0.083 00:00: (four) [place] %) 00 hours as Medical nebulizer needed for Bran ch solution Wheezing or Shortness of Breath. albuterol 2020-0 Yes [id number] 2.5mg Inhale 3 Univers 2.5 mg /3 8-27 mL every 4 ity of mL (0.083 00:00: (four) [place] %) 00 hours as Medical nebulizer needed for Bran ch solution Wheezing or Shortness of Breath. albuterol 2020-0 Yes [id number] 2.5mg Inhale 3 Univers 2.5 mg /3 [...] (KEPPRA -03 mouth. ity of ORAL) 19:45: [address] Branch levetiracet 2020-0 Yes Take by Un lois am (KEPPRA 8-03 mouth. ity of ORAL) 19:45: [address] Branch levetiracet 2020-0 Yes Take by Un lois am (KEPPRA 8-03 mouth. ity of ORAL) 19:45: [address] Branch levetiracet 2020-0 Yes Take by Un lois am (KEPPRA 8-03 mouth. ity of ORAL) 19:45: [address] Branch levetiracet 2021-0 Yes Take by Un lois am (KEPPRA 02-19 mouth. ity of ORAL) 19:45: [address] levetiracet Yes Take by Un lois am (KEPPRA 02-19 mouth. ity of ORAL) 19:45: [address] LISINOPRIL- 2020- No Take by U nivers HYDROCHLORO 02-19 mouth. ity o f THIAZIDE 19:41: 00:00 [place] ORAL 15 :00 [facility] Branch dicyclomine 2020- No 20mg 20 mg, [...] Tue Medica l NaCl 0.9% 02/19/21 at [facility] h (NS) 50 mL 1415, 50 piggyback [...] at Branch 1200, MICHAEL iopamidol 2020- No [id number] 100mL 100 mL, Univers (ISOVUE 02-19 08-03 Intravenou ity o f 370-500 mL) 16:35: 16:45 s, ONCE, 1 [place] injection 00 :00 dose, Tue Medic al 100 mL 02/19/21 at Branch 1145, Routine levetiracet 0 Yes Take by Un lois am (KEPPRA 8-03 mouth. ity of ORAL) 14:45: [address] levetiracet 2020-0 Yes Take by Un lois am (KEPPRA 8-03 mouth. ity of ORAL) 14:45: [address] levetiracet 2020-0 Yes Take by Un lois am (KEPPRA 8-03 mouth. ity of ORAL) 14:45: [address] proMETHazin 2020-0 Yes [id number] 25mg Take 1 Univers e 25 mg 8-03 tablet by ity of tablet 00:00: mouth [place] 00 every 6 Medical (six) Branch hours as needed for Nausea and Vomiting (N/V). dicyclomine 2020-0 Yes [id number] 20mg Take 1 Univers 20 mg 8-03 tablet by ity of tablet 00:00: mouth [place] (four) Medical times Branch daily as needed for Abdominal pain. proMETHazin 2020-0 Yes [id number] 25mg Take 1 Univers e 25 mg 8-03 tablet by ity of tablet 00:00: mouth [place] 00 every 6 Medical (six) Branch hours as needed for Nausea and Vomiting (N/V). dicyclomine 2020-0 Yes [id number] 20mg Take 1 Univers 20 mg 8-03 tablet by ity of tablet 00:00: mouth [place] (four) Medical times Branch daily as needed for Abdominal pain. proMETHazin 2020-0 Yes [id number] 25mg Take 1 Univers e 25 mg 8-03 tablet by ity of tablet 00:00: mouth [place] 00 every 6 Medical (six) Branch hours as needed for Nausea and Vomiting (N/V). dicyclomine 2020-0 Yes [id number] 20mg Take 1 Univers 20 mg 8-03 tablet by ity of tablet 00:00: mouth [place] (four) Medical times Branch daily as needed for Abdominal pain. proMETHazin 1-0 Yes [id number] 25mg Take 1 Univers e 25 mg 8-03 tablet by ity of tablet 00:00: mouth [place] 00 every 6 Medical (six) Branch hours as needed for Nausea and Vomiting (N/V). dicyclomine 2020-0 Yes [id number] 20mg Take 1 Univers 20 mg 8-03 tablet by ity of tablet 00:00: mouth 4 00 (four) Medical times Branch daily as needed for Abdominal pain. proMETHazin 2020-0 Yes [id number] 25mg Take 1 Univers e 25 mg 8-03 tablet by ity of tablet 00:00: mouth [place] 00 every 6 Medical (six) Branch hours as needed for Nausea and Vomiting (N/V). dicyclomine 2020-0 Yes [id number] 20mg Take 1 Univers 20 mg 8-03 tablet by ity of tablet 00:00: mouth 4 00 (four) Medical times Branch daily as needed for Abdominal pain. proMETHazin 2020-0 Yes [id number] 25mg Take 1 Univers e 25 mg 8-03 tablet by ity of tablet 00:00: mouth [place] 00 every 6 Medical (six) Branch hours as needed for Nausea and Vomiting (N/V). dicyclomine 2020-0 Yes [id number] 20mg Take 1 Univers 20 mg 8-03 tablet by ity of tablet 00:00: mouth 4 00 (four) Medical times Branch daily as needed for Abdominal pain. proMETHazin 2020-0 Yes [id number] 25mg Take 1 Univers e 25 mg 8-03 tablet by ity of tablet 00:00: mouth [place] 00 every 6 Medical (six) Branch hours as needed for Nausea and Vomiting (N/V). dicyclomine 2021-0 Yes [id number] 20mg Take 1 Univers 20 mg 8-03 tablet by ity of tablet 00:00: mouth 4 00 (four) Medical times Branch daily as needed for Abdominal pain. proMETHazin 2021-0 Yes [id number] 25mg Take 1 Univers e 25 mg 8-03 tablet by ity of tablet 00:00: mouth [place] 00 every 6 Medical (six) Branch hours as needed for Nausea and Vomiting (N/V). dicyclomine 2021-0 Yes [id number] 20mg Take 1 Univers 20 mg 8-03 tablet by ity of tablet 00:00: mouth 4 00 (four) Medical times Branch daily as needed for Abdominal pain. proMETHazin Yes [id number] 25mg Take 1 Univers e 25 mg 8-03 tablet by ity of tablet 00:00: mouth [place] 00 every 6 Medical (six) Branch hours as needed for Nausea and Vomiting (N/V). dicyclomine Yes [id number] 20mg Take 1 Univers 20 mg 8-03 [...] o f mg tablet 20:05: every 8 [place] (eight) Medical hours as Branch needed. pantoprazol Yes 40mg Take 40 mg Univers e 7-24 by mouth ity of (PROTONIX) 20:05: daily. [place] 40 mg EC Medical tablet Branch ondansetron Yes 4mg Take 4 mg U nivers (ZOFRAN) 4 7-24 by mouth ity o f mg tablet 20:05: every 8 [place] (eight) Medical hours as Branch needed. pantoprazol Yes 40mg Take 40 mg Univers e 7-24 by mouth ity of (PROTONIX) 20:05: daily. [place] 40 mg EC Medical tablet Branch LISINOPRIL- Yes Take by Un lois HYDROCHLORO 7-24 mouth. ity of THIAZIDE 20:05: [place] ORAL Medical Branch ondansetron Yes 4mg Take 4 mg U nivers (ZOFRAN) 4 7-24 by mouth ity o f mg tablet 20:05: every 8 [place] (eight) Medical hours as Branch needed. pantoprazol [...] 7-24 by mouth ity of 19:58: daily. [address] Branch loratadine Yes Take by Uni vers (CLARITIN 7-24 mouth ity of LIQUI-GEL) 19:58: daily. [place] 10 mg 14 Medical capsule Branch MULTIVITAMI Yes 1{tbl} Take 1 Tab Univers N ORAL 7-24 by mouth ity of 19:58: daily. [address] loratadine Yes Take by Uni vers (CLARITIN 7-24 mouth ity of LIQUI-GEL) 19:58: daily. [place] 10 mg 14 Medical capsule Branch MULTIVITAMI Yes 1{tbl} Take 1 Tab Univers N ORAL 7-24 by mouth ity of 19:58: daily. [address] loratadine Yes Take by Uni vers (CLARITIN 7-24 mouth ity of LIQUI-GEL) 19:58: daily. [place] 10 mg 14 Medical capsule Branch MULTIVITAMI Yes 1{tbl} Take 1 Tab Univers N ORAL 7-24 by mouth ity of 19:58: daily. [address] loratadine Yes Take by Uni vers (CLARITIN 7-24 mouth ity of LIQUI-GEL) 19:58: daily. [place] 10 mg 14 Medical capsule Branch MULTIVITAMI Yes 1{tbl} Take 1 Tab Univers N ORAL 7-24 by mouth ity of 19:58: daily. [address] loratadine 0 Yes Take by Uni vers (CLARITIN 7-24 mouth ity of LIQUI-GEL) 19:58: daily. [place] 10 mg 14 Medical capsule Branch MULTIVITAMI Yes 1{tbl} Take 1 Tab Univers N ORAL 7-24 by mouth ity of 19:58: daily. [place] 14 Medical Branch loratadine 2017-0 Yes Take by Uni vers (CLARITIN 7-24 mouth ity of LIQUI-GEL) 19:58: daily. [place] 10 mg 14 Medical capsule Branch MULTIVITAMI 0 Yes 1{tbl} Take 1 Tab Univers N ORAL 7-24 by mouth ity of 19:58: daily. [place] [address] Medical Branch loratadine 2017-0 Yes Take by Uni vers (CLARITIN 7-24 mouth ity of LIQUI-GEL) 19:58: daily. [place] 10 mg 14 Medical capsule Branch ondansetron 0 Yes 4mg Take 4 mg U nivers (ZOFRAN) 4 7-24 by mouth ity o f mg tablet 15:05: every 8 [place] [address] (eight) Medical hours as Branch needed. pantoprazol 2017-0 Yes 40mg Take 40 mg Univers e 7-24 by mouth ity of (PROTONIX) 15:05: daily. [place] 40 mg EC Medical tablet Branch ondansetron Yes 4mg Take 4 mg U nivers (ZOFRAN) 4 7-24 by mouth ity o f mg tablet 15:05: every 8 [place] [address] (eight) Medical hours as Branch needed. pantoprazol 2017-0 Yes 40mg Take 40 mg Univers e 7-24 by mouth ity of (PROTONIX) 15:05: daily. [place] 40 mg EC 01 Medical tablet Branch ondansetron 0 Yes 4mg Take 4 mg U nivers (ZOFRAN) 4 7-24 by mouth ity o f mg tablet 15:05: every 8 [place] [address] (eight) Medical hours as Branch needed. pantoprazol [...] 7-24 by mouth ity of 14:58: daily. [address] loratadine Yes Take by Uni vers (CLARITIN 7-24 mouth ity of LIQUI-GEL) 14:58: daily. [place] 10 mg 14 Medical capsule Branch MULTIVITAMI Yes 1{tbl} Take 1 Tab Univers N ORAL 7-24 by mouth ity of 14:58: daily. [address] loratadine Yes Take by Uni vers (CLARITIN 7-24 mouth ity of LIQUI-GEL) 14:58: daily. [place] 10 mg 14 Medical capsule Branch MULTIVITAMI Yes 1{tbl} Take 1 Tab Univers N ORAL 7-24 by mouth ity of 14:58: daily. [address] Branch loratadine Yes Take by Uni [...] 00:00: daily. [place] mg tablet 00 [facility] Immunizations Ordered Filled Immunization Date Status Comments [facility] e Immunization Name Name SARS-COV-2 COVID-19 2021-05-24 Completed Unive rsity of PFIZER VACCINE 00:00:00 [facility] SARS-COV-2 COVID-19 2021-05-03 Completed Unive rsity of PFIZER VACCINE 00:00:00 [facility] SARS-COV-2 COVID-19 2021-05-03 Completed Unive rsity of PFIZER VACCINE 00:00:00 [facility] Vital Signs Vital Name Observation Time Observation Value Comments Source Systolic blood 2021-03-17 03:00:00 117 mm[Hg] Univer sity of pressure [place] [facility] Diastolic blood 2021-03-17 03:00:00 76 mm[Hg] Unive rsity of pressure [place] [facility] Heart rate 2021-03-17 03:00:00 104 /min Universi ty of [place] [facility] Respiratory rate 2021-03-17 03:00:00 28 /min Univ ersity of [place] [facility] Oxygen saturation in 2021-03-17 03:00:00 96 /min University of Arterial blood by [facility] Pulse oximetry Branch Body temperature 2021-03-17 00:39:00 37.11 Radha [facility] ersity of [place] [facility] Body height 2021-03-17 00:39:00 160 cm Universi ty of [place] [facility] Body weight 2021-03-17 00:39:00 58.968 kg Universi ty of [place] [facility] BMI 2021-03-17 00:39:00 23.03 kg/m2 Universi ty of [place] [facility] Systolic blood 2021-03-15 00:14:00 149 mm[Hg] Univer sity of pressure [place] [facility] Diastolic blood 2021-03-15 00:14:00 78 mm[Hg] Unive rsity of pressure [place] [facility] Heart rate 2021-03-15 00:14:00 100 /min Universi ty of [place] [facility] Body temperature 2021-03-15 00:14:00 37.33 Radha Univ ersity of [place] [facility] Respiratory rate 2021-03-15 00:14:00 24 /min Univ ersity of [place] [facility] Body height 2021-03-15 00:14:00 160 cm Universi ty of [place] [facility] Body weight 2021-03-15 00:14:00 58.968 kg Universi ty of [place] [facility] BMI 2021-03-15 00:14:00 23.03 kg/m2 Universi ty of [place] [facility] Oxygen saturation in 2021-03-15 00:14:00 98 /min University of Arterial blood by [facility] Pulse oximetry Branch Systolic blood 2021-02-19 18:00:00 131 mm[Hg] Univer sity of pressure [place] [facility] Diastolic blood 2021-02-19 18:00:00 80 mm[Hg] Unive rsity of pressure [facility] Heart rate 2021-02-19 18:00:00 83 /min [facility] Respiratory rate 2021-02-19 18:00:00 18 /min [facility] Oxygen saturation in 2021-02-19 18:00:00 100 /min [facility] Arterial blood by [facility] Pulse oximetry [place] Body temperature 2021-02-19 15:47:00 37 Radha [facility] Body height 2021-02-19 15:47:00 160 cm [facility] Body weight 2021-02-19 15:47:00 58.968 kg [facility] BMI 2021-02-19 15:47:00 23.03 kg/m2 [facility] Procedures Procedure Date / Time Performing Clinician Source Performed SARS-COV-2 COVID-19 2021-05-24 14:23:12 Doctor Unassigned, [facility] VACCINE,0.3ML,IM (PFIZER) [place] [facility] SARS-COV-2 COVID-19 2021-05-03 14:59:29 Doctor Unassigned, [facility] [place] VACCINE,0.3ML,IM (PFIZER) [place] [facility] EMERGENCY SERVICES 2021-04-16 05:01:00 Doctor Joe, [facility] AGREEMENTS AND [place] [facility] [place] AUTHORIZATIONS URINALYSIS 2021-03-17 03:09:[address] [facility] XR CHEST 1 VW 2021-03-17 01:45:[address] [facility] TROPONIN I 2021-03-17 01:35:[address] [facility] COMP. METABOLIC PANEL 2021-03-17 01:35:00 [facility] ([id number]) [facility] CBC WITH DIFF 2021-03-17 01:35:[address] [facility] N-TERMINAL PRO-BNP 2021-03-17 01:35:00 [facility] COVID-19 (ID NOW RAPID 2021-03-17 00:58:00 Brian Ray [facility] TESTING) Medical Branch CONSENT/REFUSAL FOR 2021-03-17 00:32:59 [facility] DIAGNOSIS AND TREATMENT [place] Medical Branch COVID-19 (ID NOW RAPID 2021-02-19 17:04:00 [facility] TESTING[facility] Medical Branch CT ABDOMEN PELVIS W 2021-02-19 16:41:18 Anali Patel [facility] CONTRAST Medical Branch LIPASE 2021-02-19 15:58:[address] [facility] COMP. METABOLIC PANEL 2021-02-19 15:58:00 Anali Patel [facility] ([id number]) Medical Branch CBC WITH DIFF 2021-02-19 15:58:00 Eliana [facility] URINALYSIS 2021-02-19 15:58:00 Eliana [facility] NOTICE OF PRIVACY 2021-02-19 15:30:46 Doctor Joe [facility] PRACTICES [place] [facility] [place] CONSENT/REFUSAL FOR 2021-02-19 15:30:30 Doctor Joe [facility] DIAGNOSIS AND TREATMENT [place] [facility] Encounters Start End Encounter Admission Attending Care Care Encounter Source Date/Time Date/Time Type Type Clinicians Facility Department ID 2021-05-20 Emergency [facility] [id number] Univers 18:48:04 [facility] 2021-05-20 Emergency [facility] [id number] Univers 12:43:40 [facility] 2021-11-21 2021-11-21 Outpatient R [facility] [id number] Univers 09:40:00 09:40:[facility] [id number] 2021-05[facility] 2021-05-24 Outpatient R [facility] [id number] Univers 09:30:00 09:30:00 [id number] [facility] 2021-05-24 2021-05-24 Outpatient R SHILPA FREDERICK [facility] [id number] Univers 09:30:00 09:30:00 ity [facility] 2021-05-24 2021-05-24 Imm/Inj Vaccine, [facility] [place] [id number] Univers 08:47:51 08:57:51 Visit Shilpa [place] [id number] ity of [place] [facility] [id number] [facility] 225 Branch 2021-05-03 2021-05-03 Outpatient R SHILPA FREDERICK [facility] [id number] Univers 09:40:00 09:59:35 ity of [facility] 2021-05-03 2021-05-03 Imm/Inj Vaccine, [facility] [place] [id number] Univers 09:17:43 09:59:35 Visit Shilpa [place] [id number] [place]y [place] [id number] [facility] 225 [place] 2021-05-03 2021-05-03 Outpatient R [facility] [id number] Univers 09:40:00 09:40:00 [id number] ity of [facility] 2021-04-16 2021-04-16 Orders Doctor EWELINA [id number] Univers 00:00:00 00:00:00 Only Unassigned, [place] [id number] ity of [place] [facility] 4.2.7.2.686 Javier as [phone] [facility] 009 Branch 2021-03-17 2021-03-17 Telephone EWELINA Nava [id number] Univers 00:00:00 00:00:00 Aneatrice [place] [id number] ity of [facility] 4.2.7.2.686 Javier as [id number] [facility] 019 Branch 2021-03-16 2021-03-16 Emergency Palmer [facility] [id number] Univers 20:08:00 23:24:00 Fabrice [place] [id number] i ty [place] [id number] [facility] 084 Branch 2021-03-14 2021-03-14 Urgent Lydia Desouza [facility] 1.2.840.114 [id number] Univers 18:59:34 20:19:13 Care Unknown, Attending [facility] [id number] ity [facility] 4.2.7.2.686 Javier as Prem?Blea [phone] [place] [address] Medical Office [facility] 2021-03-14 2021-03-14 Outpatient R [facility] [id number] Univers 19:00:00 19:00:00 [id number] [facility] 2021-03-14 2021-03-14 Outpatient R UNKNOWN, [facility] [id number] Univers 19:00:00 19:00:00 [facility] 2021-02-19 2021-02-19 Emergency Patel, [facility] [id number] Univers 10:49:00 14:48:00 Anali [place] [id number] i ty [place] [id number] [address] 2019-03-09 2019-03-09 [facility]berley [facility] [id number] 00:00:00 00:00:00 Yehuda [place] [id number] [place] 4.2.7.2.686 Professio [phone] [address] 2019-03-09 2019-03-09 Dick [facility] 1.2.840.114 [id number] Univers 00:00:00 00:00:00 Yehuda [place] [id number] ity [facility] 4[place] [id number] [address] Results Test Description Test Time Test Comments Results Result Comments Source URINALYSIS 2021-03-17 03:22:48 Test Item Value Reference Range Interpretation Comme nts APPEARANCE (test code = Hazy Clear A 7143294600) COLOR (test code = 4762889389) Yellow Yellow PH (test code = 1125641442) 4.8-8.0 SP GRAVITY (test code = 1.003-1.030 9577353541) GLU U QUAL (test code = Normal Normal 4810580803) BLOOD (test code = 1750966691) Negative Negative Interference from ascorbic acid may cause false negative results. KETONES (test code = 8109866940) 5 mg/dL Negative A PROTEIN (test code = 2887-8) Negative Negative UROBILIN (test code = 4.0 mg/dL Normal A 9677952879) BILIRUBIN (test code = Negative Negative 2823380064) NITRITE (test code = 3278654940) Negative Negative [place] (test code = Negative Negative 6169837990) RBC/HPF (test code = 7831917770) See_Comment [Automated message] The system which ge nerated this result transmit sherice reference range: 0 - 3 HP F. The reference range was not used to interpret th is result as normal/abnormal . WBC/HPF (test code = 2697101037) <1 See_Comment [Automated message] The system which ge nerated this result transmit sherice reference range: 0 - 5 HP F. The reference range was not used to interpret th is result as normal/abnormal . BACTERIA (test code = Few Negative A 3581830448) SQ EPITH (test code = HPF 8291688853) Lab Interpretation (test code = Abnormal 71956-9) [place] [facility]48 Test Item Value Reference Range Interpretation Comments APPEARANCE (test code = Hazy Clear A 3380959210) COLOR (test code = Yellow Yellow 7818938354) PH (test code = 4.8-8.0 8264949687) SP GRAVITY (test code = 1.003-1.030 6954320535) GLU U QUAL (test code = Normal Normal 1634803975) BLOOD (test code = Negative Negative 1272795508) KETONES (test code = 5 mg/dL Negative A 6611514834) PROTEIN (test code = Negative Negative 2887-8) UROBILIN (test code = 4.0 mg/dL Normal A 5632443855) BILIRUBIN (test code = Negative Negative 1148571719) NITRITE (test code = Negative Negative 4440410975) LEUK GRUPO (test code = Negative Negative 5957648351) RBC/HPF (test code = See_Comment [Autom ated message] 0939960764) The system [employer] generated this result transmit sherice reference range : 0 - 3 HPF. The refe rence range was not u sed to interpret th is result as normal/abnormal . WBC/HPF (test code = <1 See_Comment [Autom ated message] 1123052980) The system [employer] generated this result transmit sherice reference range : 0 - 5 HPF. The refe rence range was not u sed to interpret th is result as normal/abnormal . BACTERIA (test code = Few Negative A 3198501760) SQ EPITH (test code = HPF 0522632666) Lab Interpretation (test Abnormal code = 22818-0) [facility] [id number] 02:45:00 Test Item Value Reference Interpretation Comments Range TROPONIN I (test 0.002 ng/mL See_Comment [Automated code = 0187150186) message] The system which generated this result [...] biotin. Lab Interpretation Normal (test code = 69377-3) [facility] [id number] 02:45:00 Test Item Value Reference Range Interpretation Comments TROPONIN I (test code = 0.002 ng/mL See_Comment [Au tomated 7782463473) message] The sy stem which generated this result transmitted reference range : <=0.034. The reference range was not used to interpret this result as normal/abnormal . LYNDSAY (test code = LYNDSAY) Lab Interpretation Normal (test code = 60616-5) [id number] 02:41:57 Test Item Value Reference Range Interpretation Comments NT-proBNP (test code 169 pg/mL See_Comment H [Autom ated = 3582168590) message] The system which generated this result transmitted reference range : <=125. The reference range was not used to interpret this result as normal/abnormal . LYNDSAY (test code = LYNDSAY) Biotin has been reported to cause a negative bias, interpret results relative to patient's use of biotin. Lab Interpretation Abnormal (test code = 87420-3) [id number] 02:41:57 Test Item Value Reference Range Interpretation Comments NT-proBNP (test code = 169 pg/mL See_Comment H [Aut omated message] 1605795185) The system [employer] generated this result transmit sherice reference range : <=125. The refe rence range was not u sed to interpret th is result as normal/abnormal . LYNDSAY (test code = LYNDSAY) Lab Interpretation (test Abnormal code = 29815-2) [facility]. METABOLIC PANEL ([id number])2021-03-17 02:09:13 Test Item Value Reference Range Interpretation Comments NA (test code = 137 mmol/L 135-145 2527747927) K (test code = 4.2 mmol/L 3.5-5.0 2989568616) CL (test code = 102 mmol/L 98-108 3754281859) CO2 TOTAL (test code = 25 mmol/L 23-31 8016343779) AGAP (test code = 2-16 6448988215) BUN (test code = 18 mg/dL 7-23 3551927354) GLUCOSE (test code = 144 mg/dL 70-110 H 7895371054) CREATININE (test code = 0.77 mg/dL 0.50-1.04 7596992662) TOTAL BILI (test code = 0.4 mg/dL 0.1-1.2 5090863683) CALCIUM (test code = 8.9 mg/dL 8.6-10.6 3772558751) T PROTEIN (test code = 6.8 g/dL 6.3-8.2 4871705968) ALBUMIN (test code = 3.9 g/dL 3.5-5.0 0701712885) ALK PHOS (test code = 84 U/L 34-122 9364749856) ALTv (test code = 13 U/L 35 1742-6) AST(SGOT) (test code = 17 U/L 13-40 6278578312) eGFR (test code = mL/min/1.73m2 3899930231) LYNDSAY (test code = LYNDSAY) Association of [...] tests). Lab Interpretation Abnormal (test code = 96849-4) [facility]. METABOLIC PANEL ([id number])2021-03-17 02:09:13 Test Item Value Reference Range Interpretation Comments NA (test code = 6067310324) 137 mmol/L 135-145 K (test code = 4674365910) 4.2 mmol/L 3.5-5.0 CL (test code = 7457462750) 102 mmol/L 98-108 CO2 TOTAL (test code = 8977512501) 25 mmol/L 23-31 AGAP (test code = 2638160942) 2-16 BUN (test code = 5038585811) 18 mg/dL 7-23 GLUCOSE (test code = 5759123563) 144 mg/dL 70-110 H CREATININE (test code = 0.77 mg/dL 0.50-1.04 2345078204) TOTAL BILI (test code = 0.4 mg/dL 0.1-1.7 3358820878) CALCIUM (test code = 9808731430) 8.9 mg/dL 8.6-10.6 T PROTEIN (test code = 9312859416) 6.8 g/dL 6.3-8.2 ALBUMIN (test code = 3132988894) 3.9 g/dL 3.5-5.0 ALK PHOS (test code = 0962490347) 84 U/L 34-122 ALTv (test code = 1742-6) 13 U/L 5-35 AST(SGOT) (test code = 4103400269) 17 U/L 13-40 eGFR (test code = 0310879023) mL/min/1.73m2 LYNDSAY (test code = LYNDSAY) Lab Interpretation (test code = Abnormal 59751-1) [facility] WITH [id number] 01:56:33 Test Item Value Reference Range Interpretation Comments WBC (test code = See_Comment H [Automated 5190-2) message] The sy stem which generated this result transmitted reference range : 4.30 - 11.10 10*3/?L. The reference range was not used to interpret this result as normal/abnormal . RBC (test code = See_Comment [Automated 609-8) message] The sy stem which generated this [...] (test code = 55.5 fL 39.0-49.9 H 08178-4) RDW-CV (test code = 18.9 % 12.0-15.5 H 788-0) PLT (test code = See_Comment H [Automated 777-3) message] The sy stem which generated this result transmitted reference range : 166 - 358 10*3/ ?L. The reference r zoe was not used to interpret this result as normal/abnormal . MPV (test code = 8.2 fL 9.5-12.9 L 50380-2) NRBC/100 WBC (test See_Comment [Automat ed code = 7322912417) message] The system which generated this result transmitted reference range : 0.0 - 10.0 /100 WBCs. The refer ence range was not u sed to interpret th is result as normal/abnormal . NRBC x10^3 (test code <0.01 See_Comment [Auto mated = 9409081002) message] The s ystem which generated this result transmitted reference range : 10*3/?L. The reference range was not used to interpret this result as normal/abnormal . GRAN MAT (NEUT) % 61.7 % (test code = 770-8) IMM GRAN % (test code 0.80 % = 1135569835) LYMPH % (test code = 28.5 % 736-9) MONO % (test code = 6.3 % 5905-5) EOS % (test code = 1.8 % 713-8) BASO % (test code = 0.9 % 706-2) GRAN MAT x10^3(ANC) 7.31 10*3/uL 1.88-7.09 H (test code = 2693110699) IMM GRAN x10^3 (test 0.09 10*3/uL 0.00-0.06 H code = 7647167264) LYMPH x10^3 (test code 3.38 10*3/uL 1.32-3.29 H = 731-0) MONO x10^3 (test code 0.75 10*3/uL 0.33-0.92 = 742-7) EOS x10^3 (test code = 0.21 10*3/uL 0.03-0.39 711-2) BASO x10^3 (test code 0.11 10*3/uL 0.01-0.07 H = 704-7) Lab Interpretation Abnormal (test code = 55100-1) [facility] WITH [id number] 01:56:33 Test Item Value Reference Range Interpretation [...] (test code = 55.5 fL 39.0-49.9 H 65049-1) RDW-CV (test code = 18.9 % 12.0-15.5 H 788-0) PLT (test code = See_Comment H [Automated 777-3) message] The sy stem which generated this result transmitted reference range : 166 - 358 10*3/ ?L. The reference r zoe was not used to interpret this result as normal/abnormal . MPV (test code = 8.2 fL 9.5-12.9 L 28617-6) NRBC/100 WBC (test See_Comment [Automat ed code = 9837571669) message] The system which generated this result transmitted reference range : 0.0 - 10.0 /100 WBCs. The refer ence range was not u sed to interpret th is result as normal/abnormal . NRBC x10^3 (test code <0.01 See_Comment [Auto mated = 7633109246) message] The s [employer] which generated this result transmitted reference range : 10*3/?L. The reference range was not used to interpret this result as normal/abnormal . GRAN MAT (NEUT) % 61.7 % (test code = 770-8) IMM GRAN % (test code 0.80 % = 0176073714) LYMPH % (test code = 28.5 % 736-9) MONO % (test code = 6.3 % 5905-5) EOS % (test code = 1.8 % 713-8) BASO % (test code = 0.9 % 706-2) GRAN MAT x10^3(ANC) 7.31 10*3/uL 1.88-7.09 H (test code = 5618462790) IMM GRAN x10^3 (test 0.09 10*3/uL 0.00-0.06 H code = 8637824030) LYMPH x10^3 (test code 3.38 10*3/uL 1.32-3.29 H = 731-0) MONO x10^3 (test code 0.75 10*3/uL 0.33-0.92 = 742-7) EOS x10^3 (test code = 0.21 10*3/uL 0.03-0.39 711-2) BASO x10^3 (test code 0.11 10*3/uL 0.01-0.07 H = 704-7) Lab Interpretation Abnormal (test code = 49404-8) [facility]2021-03-17 01:38:12 Test Item Value Reference Range Interpretation Comments SARS-CoV-2 Rapid ID NOW Not Detected Not Detected (test code = 88206-4) YLNDSAY (test code = LYNDSAY) ID NOW COVID-19 Assay is an isothermal nucleic acid amplification test intended for the qualitative detection of nucleic acid from SARS-CoV-2 viral RNA in nasopharyngeal ([employer]) specimens. It is used under Emergency Use [...] indicated. Lab Interpretation Normal (test code = 26453-3) [facility]2021-03-17 01:38:12 Test Item Value Reference Range Interpretation Comments SARS-CoV-2 Rapid ID NOW (test Not Detected Not Detected code = 53794-8) LYNDSAY (test code = LYNDSAY) Lab Interpretation (test code = Normal 36166-1) [facility]19 17:42:45 Test Item Value Reference Range Interpretation Comments SARS-CoV-2 Rapid ID NOW Not Detected Not Detected (test code = 66473-2) LYNDSAY (test code = LYNDSAY) ID NOW COVID-19 Assay is an isothermal nucleic acid amplification test intended for the qualitative detection of nucleic acid from SARS-CoV-2 viral RNA in nasopharyngeal ([employer]) specimens. It is used under Emergency Use [...] indicated. Lab Interpretation Normal (test code = 79747-2) [facility] [id number] 17:24:55Thickening of the gastric antrum and duodenal bulb could be fromunderdistention, the differential would include sequela of peptic ulcerdisease. No findings of ulcer perforation. Otherwise, no acute intra- abdominal or pelvic abnormality. Stable thickening and nodularity of the left adrenal gland. RL: 4213 Patient name: EUSEBIA ONTIVEROSB: 1970 51 years [...] nodularity of the left adrenal gland.RL: 8722 [facility] 17:03:40 Test Item Value Reference Range Interpretation Comments APPEARANCE (test code = Hazy Clear A 2828380575) COLOR (test code = Mabel Yellow A 2437336631) PH (test code = 4.8-8.0 8017851251) SP GRAVITY (test code = 1.003-1.030 H 7753230550) GLU U QUAL (test code = Normal Normal 0007987944) BLOOD (test code = Negative Negative 0240475393) KETONES (test code = 5 mg/dL Negative A 9387126579) PROTEIN (test code = 30 mg/dL Negative A 2887-8) UROBILIN (test code = 4.0 mg/dL Normal A 6624774683) BILIRUBIN (test code = 4 mg/dL Negative A 8736424023) NITRITE (test code = Negative Negative 6536015028) LEUK GRUPO (test code = Negative Negative 7054855016) RBC/HPF (test code = See_Comment H [Autom ated message] 2112615888) The system [employer] generated this result transmit sherice reference range : 0 - 3 HPF. The refe rence range was not u sed to interpret th is result as normal/abnormal . WBC/HPF (test code = See_Comment H [Autom ated message] 7065001304) The system [employer] generated this result transmit sherice reference range : 0 - 5 HPF. The refe rence range was not u sed to interpret th is result as normal/abnormal . BACTERIA (test code = Few Negative A 9758779824) MUCOUS (test code = Moderate Negative LPF A 9272635049) SQ EPITH (test code = HPF 5275164220) CA OXALATE (test code = See_Comment H [Au tomated message] 7895847037) The system [employer] generated this result transmit sherice reference range : <=1 HPF. The refere nce range was not u sed to interpret th is result as normal/abnormal . Ictotest (test code = Negative 1568759898) Lab Interpretation (test Abnormal code = 10031-6) [facility] [id number] 16:34:55 Test Item Value Reference Range Interpretation Comments NA (test code = 139 mmol/L 135-145 9415738354) K (test code = 4.3 mmol/L 3.5-5.0 1207548681) CL (test code = 105 mmol/L 98-108 5557170837) CO2 TOTAL (test code 26 mmol/L 23-31 = 3004797415) AGAP (test code = 2-16 8358753288) BUN (test code = 11 mg/dL 7-23 6563887151) GLUCOSE (test code = 95 mg/dL 70-110 2433062166) CREATININE (test code 0.70 mg/dL 0.50-1.04 = 5952773255) TOTAL BILI (test code 0.6 mg/dL 0.1-1.1 = 2930350198) CALCIUM (test code = 8.9 mg/dL 8.6-10.6 1778243778) T PROTEIN (test code 7.7 g/dL 6.3-8.2 = 9335325450) ALBUMIN (test code = 4.1 g/dL 3.5-5.0 9241722254) ALK PHOS (test code = 79 U/L 34-122 4987303155) ALTv (test code = 10 U/L 5-35 1742-6) AST(SGOT) (test code 22 U/L 13-40 = 0787900570) eGFR (test code = mL/min/1.73m2 9800869966) LYNDSAY (test code = LYNDSAY) Association of [...] or urine or abnormalities in imaging tests). [facility], [id number] 16:34:14 Test Item Value Reference Range Interpretation Comments LIPASE (test code = 9970235959) 45 U/L 0-220 Lab Interpretation (test code = Normal 30548-3) [facility] with [id number] 16:21:12 Test Item Value Reference Range Interpretation Comments WBC (test code = See_Comment [Automated 9790-2) message] The sy stem which generated this [...] (test code = 54.4 fL 39.0-49.9 H 87483-8) RDW-CV (test code = 18.3 % 12.0-15.5 H 788-0) PLT (test code = See_Comment H [Automated 777-3) message] The sy stem which generated this result transmitted reference range : 166 - 358 10*3/ ?L. The reference r zoe was not used to interpret this result as normal/abnormal . MPV (test code = 8.5 fL 9.5-12.9 L 29026-6) NRBC/100 WBC (test See_Comment [Automat ed code = 6473440282) message] The system which generated this result transmitted reference range : 0.0 - 10.0 /100 WBCs. The refer ence range was not u sed to interpret th is result as normal/abnormal . NRBC x10^3 (test code <0.01 See_Comment [Auto mated = 7651837640) message] The s ystem which generated this result transmitted reference range : 10*3/?L. The reference range was not used to interpret this result as normal/abnormal . GRAN MAT (NEUT) % 78.3 % (test code = 770-8) IMM GRAN % (test code 0.40 % = 8314197315) LYMPH % (test code = 15.4 % 736-9) MONO % (test code = 4.8 % 5905-5) EOS % (test code = 0.1 % 713-8) BASO % (test code = 1.0 % 706-2) GRAN MAT x10^3(ANC) 7.15 10*3/uL 1.88-7.09 H (test code = 1951171428) IMM GRAN x10^3 (test 0.04 10*3/uL 0.00-0.06 code = 8814986531) LYMPH x10^3 (test code 1.41 10*3/uL 1.32-3.29 = 731-0) MONO x10^3 (test code 0.44 10*3/uL 0.33-0.92 = 742-7) EOS x10^3 (test code = <0.03 0.03-0.39 L 711-2) BASO x10^3 (test code 0.09 10*3/uL 0.01-0.07 H = 704-7) Lab Interpretation Abnormal (test code = 12563-8) [facility]"
[2021-09-10 20:50] LABS: Absolute Lymphocytes (CBC) 2.5 K/uL (0.7-4.9); Lymphocytes % 25.5 % (15.3-44.8); MPV 6.2 fL (7.6-11.3); Protime INR 0.97; RBC Red Blood Cell Count 4.72 M/uL (3.86-4.86)
[2021-09-10 21:01] LABS: Albumin 3.8 g/dL (3.4-5.0); BUN Blood Urea Nitrogen 11 mg/dL (7-18); Bicarbonate 24 mmol/L (21-32); Glucose Level 101 mg/dL (74-106); Magnesium 2.2 mg/dL (1.8-2.4); Potassium 3.4 mmol/L (3.5-5.1)
[2021-09-10 21:02] LABS: Bilirubin Direct < 0.1 mg/dL (0-0.2); Sodium Level 138 mmol/L (136-145)
[2021-09-10 21:10] LABS: ALT/SGPT 18 U/L (12-78); AST/SGOT 8 U/L (15-37); Alkaline Phosphatase 70 U/L (45-117); Bilirubin Total 0.2 mg/dL (0.2-1.0); Lipase 180 U/L (73-393); NT PRO-BNP 519 pg/mL (<125); Protein, Total 7.6 g/dL (6.4-8.2)
[2021-09-10] MEDS ORDERED: FAMOTIDINE 20 MG/2 ML VIAL IV ONE (21:14)
[2021-09-10] MEDS ORDERED: MORPHINE 4 MG/ML SYR ONE (21:14)
[2021-09-10] MEDS ORDERED: ONDANSETRON 4 MG/2 ML VIAL ONE (21:14)
--- NOTE | 2021-09-10 22:18 | RAD REPORT ---
EXAM DESCRIPTION: RAD - Chest Single View - 09/10/2021 9:26 pm CLINICAL HISTORY: CHEST PAIN COMPARISON: Portable November 21, 2020 TECHNIQUE: AP portable chest image was obtained 09/10/2021 9:26 pm . FINDINGS: Lungs are clear. Heart and vasculature are normal. No measurable pleural effusion and no p neumothorax. No acute bony abnormality seen. No acute aortic findings suspected. IMPRESSION: No acute cardiopulmonary process. No significant change from comparison study.
--- NOTE | 2021-09-10 22:22 | RAD REPORT ---
EXAM DESCRIPTION: US - Extrem Venous W Compress Yuriy - 09/10/2021 10:06 pm CLINICAL HISTORY: Pain;Swelling COMPARISON: None. TECHNIQUE: Real-time sonographic evaluation of the bilateral lower extremity common femoral, superfi cial femoral, popliteal and posterior tibial veins was performed. FINDINGS: Normal compressibility, flow augmentation, phasic flow and spontaneous flow are identified in the left and right lower extremity common femoral, superficial femoral, popliteal and posterior t ibial veins. No intraluminal filling defects seen. IMPRESSION: No DVT in either lower extremity.
[2021-09-11] MEDS ORDERED: MORPHINE 4 MG/ML SYR ONE (00:19)
[2021-09-11] MEDS ORDERED: NA CHLORIDE 0.9% 250 ML ONE (00:19)
[2021-09-11] MEDS ORDERED: levETIRAcetam 500 MG TAB ONE (00:58)
--- NOTE | 2021-09-11 01:07 | ER ---
Nurse's Notes [facility] Name: Heather Coon Age: 51 yrs Sex: Female : 1970 Arrival Date: 09/10/2021 Time: 19:36 Bed 3 Private MD: Diagnosis: Chest pain, unspecified Presentation: 09/10 19:48 Chief complaint: Patient states: heart attack x 1 15 years ago. today c/o chest pain in al4 the center of chest and under right breast with right leg weakness and pain. "feels like an elephant on my chest.". 20:35 Acuity: ANDER 3 st1 20:36 Coronavirus screen: Vaccine status: Patient reports receiving the 2nd dose of the covid st1 vaccine. [employer] Client denies travel out of the [place] in the last 14 days. Ebola Screen: No symptoms or risks identified at this time. Initial Sepsis Screen: Does the patient meet any 2 criteria? No. Patient's initial sepsis screen is negative. Does the patient have a suspected source of infection? No. Patient's initial sepsis screen is negative. Risk Assessment: Do you want to hurt yourself or someone else? Patient reports no desire to harm self or others. Onset of symptoms was September 10, 2021. 20:36 Method Of Arrival: Wheelchair st1 Triage Assessment: 20:35 General: Appears in no apparent distress. uncomfortable, Behavior is calm, cooperative. st1 Pain: Complains of pain in chest Pain currently is 8 out of 10 on a pain scale. Quality of pain is described as aching, crushing, heavy. Cardiovascular: Reports chest pain. GI: Reports constipation. 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 - Social history:: Smoking status: Patient reports the use of cigarette tobacco products, smokes one pack cigarettes per day. Patient uses alcohol, street drugs, marijuana. Screenin:32 Abuse screen: Denies threats or abuse. Nutritional screening: No deficits noted. st1 Tuberculosis screening: No symptoms or risk factors identified. Fall Risk None identified. Fall in past 12 months (25 points). Secondary diagnosis (15 points) seizures, IV access (20 points). Ambulatory Aid- None/Bed Rest/Nurse Assist (0 pts). Gait- Weak (10 pts.). Mental Status- Oriented to own ability (0 pts). Total Costello Fall Scale indicates High Risk Score (45 or more points). Fall prevention measures have been instituted. Side Rails Up X 2 Placed Close to Nursing Station Frequent Obs/Assessments Occuring Family Present and informed to notify staff if the need to leave the bedside As available patient and family educated on Fall Prevention Program and Strategies. Assessment: 22:00 Reassessment: Patient appears in no apparent distress at this time. No changes from st1 previously documented assessment. Patient and/or family updated on plan of care and expected duration. Pain level reassessed. Patient is alert, oriented x 3, equal unlabored respirations, skin warm/dry/pink. 23:15 Reassessment: No changes from previously documented assessment. sm5 09/11 00:00 Pain: Complains of pain in left leg and right leg and chest Pain does not radiate. Pain sm5 began 1 day ago. 01:15 Reassessment: Patient and/or family updated on plan of care and expected duration. Pain sm5 level reassessed. 02:26 Reassessment: Patient states symptoms have improved. sm5 03:12 Reassessment: No changes from previously documented assessment. sm5 Vital Signs: 09/10 20:41 BP 152 / 102; Pulse 93; Resp 16; Temp 98.0; Pulse Ox 99% on R/A; Weight 77.11 kg; st1 Height 5 ft. 2 in. (157.48 cm); 21:30 BP 140 / 81; Pulse 77; Resp 16; Pulse Ox 98% on R/A; st1 09/11 00:11 BP 173 / 110; Pulse 98; Resp 20; Pulse Ox 100% ; Pain 10/10; st1 01:17 BP 149 / 103; Pulse 83; Resp 17; Pulse Ox 100% on R/A; sm5 02:30 BP 132 / 92; Pulse 99; Resp 24; Pulse Ox 100% on R/A; sm5 03:30 BP 124 / 85; Pulse 71; Resp 19; Pulse Ox 96% on R/A; sm5 09/10 20:41 Body Mass Index 31.09 (77.11 kg, 157.48 cm) st1 ED Course: 09/10 19:36 Patient arrived in ED. kc5 19:57 Derrick Castillo PA is PHCP. cp 19:57 Fazal Frey MD is Attending Physician. cp 20:31 Patient has correct armband on for positive identification. Bed in low position. Call st1 light in reach. Side rails up X2. monitor technician on. Pulse ox on. NIBP on. Door closed. Verbal reassurance given. 20:32 No provider procedures requiring assistance completed. Inserted saline lock: 20 gauge st1 in right antecubital area, using aseptic technique. Patient maintains SpO2 saturation greater than 95% on room air. 20:35 Triage completed. st1 20:37 Arm band placed on right wrist. EKG completed in triage. Results shown to MD. st1 20:38 Basic Metabolic Panel Sent. st1 20:38 CBC with Diff Sent. st1 20:38 Magnesium Sent. st1 20:38 LFT's Sent. st1 20:39 CBC with Automated Diff Sent. st1 20:39 Basic Metabolic Panel Sent. st1 20:39 Magnesium Sent. st1 20:39 Liver (Hepatic) Function Sent. st1 20:39 NT PRO-BNP Sent. st1 20:39 PT-INR Sent. st1 20:39 Troponin HS Sent. st1 21:19 Zeinab Reinoso, RN is Primary Nurse. sm5 21:26 XRAY Chest (1 view) In Process Unspecified. EDMS 22:02 US Extremity Venous W Compression Yuriy Sent. st1 22:06 US Extremity Venous W Compression Yuriy In Process Unspecified. EDMS 23:48 CT Chest For PE Angio In Process Unspecified. EDMS 23:48 CT Abd/Pelvis - IV Contrast Only In Process Unspecified. EDMS 09/11 01:06 Darrick Fry MD is Hospitalizing Provider. cp 01:08 COVID-19 SARS RT PCR (Document "Date of Onset" if Symptomatic) Sent. st1 04:00 Patient admitted, IV remains in place. 5 Administered Medications: 09/10 21:20 Drug: Zofran (Ondansetron) 4 mg Route: IVP; Site: right antecubital; 5 21:20 Drug: Pepcid (famotidine) 20 mg Route: IVP; Site: right antecubital; 5 21:21 Drug: morphine 4 mg Route: IVP; Site: right antecubital; 5 09/11 00:28 Drug: morphine 4 mg Route: IVP; Site: right antecubital; st1 00:29 Drug: NS 0.9% 250 ml Route: IV; Rate: bolus; Site: right antecubital; st1 00:57 Drug: Keppra (levETIRAcetam) 1000 mg Route: PO; st1 01:14 Drug: Aspirin Chewable Tablet 324 mg Route: PO; st1 01:14 Drug: Metoprolol 25 mg Route: PO; st1 Outcome: 01:06 Decision to Hospitalize by Provider. cp 03:59 Admitted to Tele accompanied by tech, via wheelchair, with chart. 5 03:59 Condition: stable 03:59 Instructed on the need for admit. 04:00 Patient left the ED. [facility] Signatures: Dispatcher [employer] EDMS Derrick Castillo PA PA cp Clark, Kasey kc5 David Nunez Sarah, RN RN 5 Mariana Vickers RN RN st1 Corrections: (The following items were deleted from the chart) 09/10 20:36 20:33 Immunization history: Client reports receiving the Royal \\T\\ Ryoal single-dose st1 vaccine. Flu vaccine is not up to date. st1 : 21:19 Pepcid (famotidine) 20 mg IVP in left jugular [facility] 21:20 Zofran (Ondansetron) 4 mg IVP in left jugular [place] [id number] 09/11 01:22 00:29 NS 0.9% 250 ml IV at bolus in right antecubital st1 st1
--- NOTE | 2021-09-11 01:07 | EDPHYS ---
Physician Documentation [facility] Name: Heather Coon Age: 51 yrs Sex: Female : 1970 Arrival Date: 09/10/2021 Time: 19:36 Bed 3 Private MD: ED Physician Fazal Frey HPI: 09/10 20:10 This 51 yrs old Female presents to ER via Wheelchair with complaints of Chest Pain, Leg cp Swelling. 20:10 The patient or guardian reports chest pain that is located primarily in the substernal cp area. 20:10 The patient presents with pain, that is acute. Associated signs and symptoms: Pertinent cp positives: calf tenderness, nausea, vomiting, Pertinent negatives fever, numbness, weakness. Onset: today. The pain radiates to back. The chest pain is described as a heaviness. Duration: The patient or guardian reports a single episode, that is still ongoing, and unchanged. 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 - Social history:: Smoking status: Patient reports the use of cigarette tobacco products, smokes one pack cigarettes per day. Patient uses alcohol, street drugs, marijuana. ROS: 20:15 Constitutional: Negative for body aches, chills, fever, poor PO intake. cp 20:15 Eyes: Negative for injury, pain, redness, and discharge. cp 20:15 ENT: Negative for ear pain, sore throat, difficulty swallowing, difficulty handling secretions. 20:15 Cardiovascular: Positive for chest pain. 20:15 Respiratory: Negative for cough, shortness of breath, wheezing. 20:15 Abdomen/GI: Positive for abdominal pain. 20:15 MS/extremity: Positive for pain, of the right leg and left leg, Negative for injury or acute deformity, decreased range of motion, paresthesias. 20:15 Neuro: Negative for altered mental status, syncope, weakness. 20:15 All other systems are negative. Exam: 19:52 ECG was reviewed by the Attending Physician. cp 20:20 Constitutional: The patient appears in no acute distress, alert, awake, cp non-diaphoretic, non-toxic, well developed, well nourished, uncomfortable. 20:20 Head/Face: Normocephalic, atraumatic. cp 20:20 Eyes: Periorbital structures: appear normal, Conjunctiva: normal, no exudate, no injection, Sclera: no appreciated abnormality, Lids and lashes: appear normal, bilaterally. 20:20 ENT: External ear(s): are unremarkable, Nose: is normal, Mouth: Lips: moist, Oral mucosa: moist, Posterior pharynx: Airway: no evidence of obstruction, patent. 20:20 Neck: ROM/movement: is normal, is supple, without pain, no range of motions limitations. 20:20 Chest/axilla: Inspection: normal. 20:20 Cardiovascular: Rate: normal, Rhythm: regular, Edema: is not appreciated, JVD: is not appreciated. 20:20 Respiratory: the patient does not display signs of respiratory distress, Respirations: labored breathing, is not present, shallow respirations, that is mild, Breath sounds: are clear throughout, no decreased breath sounds, no stridor, no wheezing. 20:20 Abdomen/GI: Inspection: abdomen appears normal, Bowel sounds: active, all quadrants, Palpation: soft, in all quadrants, moderate abdominal tenderness, in all quadrants. 20:20 Back: CVA tenderness, is absent. 20:20 Musculoskeletal/extremity: Extremities: grossly normal except: noted in the right leg and left leg: pain. 20:20 Skin: cellulitis, is not appreciated, no rash present. 20:20 Neuro: Orientation: to person, place \\T\\ time. Mentation: is normal, Motor: moves all fours, strength is normal, Sensation: is normal. Vital Signs: 20:41 BP 152 / 102; Pulse 93; Resp 16; Temp 98.0; Pulse Ox 99% on R/A; Weight 77.11 kg; st1 Height 5 ft. 2 in. (157.48 cm); 21:30 BP 140 / 81; Pulse 77; Resp 16; Pulse Ox 98% on R/A; st1 09/11 00:11 BP 173 / 110; Pulse 98; Resp 20; Pulse Ox 100% ; Pain 10/10; st1 01:17 BP 149 / 103; Pulse 83; Resp 17; Pulse Ox 100% on R/A; sm5 02:30 BP 132 / 92; Pulse 99; Resp 24; Pulse Ox 100% on R/A; sm5 03:30 BP 124 / 85; Pulse 71; Resp 19; Pulse Ox 96% on R/A; sm5 09/10 20:41 Body Mass Index 31.09 (77.11 kg, 157.48 cm) st1 MDM: 09/10 20:05 Patient medically screened. cp 21:00 Differential diagnosis: abnormal EKG, acute myocardial infarction, acute pericarditis, cp anxiety, coronary artery disease pleurisy, pneumonia, pulmonary embolus, stable angina, thoracic aortic disection, unstable angina. 09/11 01:10 Data reviewed: vital signs, nurses notes, lab test result(s), EKG, radiologic studies, cp CT scan, plain films. 01:10 The patient was given aspirin in the Emergency Department. Test interpretation: by ED cp physician or midlevel provider: ECG, plain radiologic studies. Counseling: I had a detailed discussion with the patient and/or guardian regarding: the historical points, exam findings, and any diagnostic results supporting the discharge/admit diagnosis, lab results, radiology results, the need for further work-up and treatment in the hospital. Physician consultation: Mariola HURST was called at 01:00, was contacted at 01:00, regarding admission, to the telemetry unit. patient's condition. 09/10 20:05 Order name: Basic Metabolic Panel cp 09/10 20:05 Order name: CBC with Diff cp 09/10 20:05 Order name: LFT's cp 09/10 20:05 Order name: Magnesium cp 09/10 20:05 Order name: NT PRO-BNP; Complete Time: 21:59 cp 09/10 22:13 Interpretation: Abnormal: NT PRO-BNP 519. cp 09/10 20:05 Order name: PT-INR; Complete Time: 21:59 cp 09/10 20:05 Order name: Troponin HS; Complete Time: 21:59 cp 09/10 20:06 Order name: Basic Metabolic Panel; Complete Time: 21:59 EDMS 09/10 22:14 Interpretation: Normal except: K 3.4; CL 109; GFR 71. cp 09/10 20:06 Order name: CBC with Automated Diff; Complete Time: 21:59 EDMS 09/10 22:14 Interpretation: Normal except: MCH 26.7; PLT 485; RDW 18.4; MPV 6.2. cp 09/10 20:06 Order name: Liver (Hepatic) Function; Complete Time: 21:59 EDMS 22 22:14 Interpretation: Normal except: AST 8; GLOB 3.8; A/G 1.0. cp 09/10 20:06 Order name: Magnesium; Complete Time: 21:59 EDMS 09/10 21:04 Order name: Lipase; Complete Time: 21:59 EDMS 09/11 01:05 Order name: COVID-19 SARS RT PCR (Document "Date of Onset" if Symptomatic) sm5 09/10 20:05 Order name: XRAY Chest (1 view); Complete Time: 23:33 cp 09/10 20:05 Order name: EKG; Complete Time: 20:06 cp 09/10 20:05 Order name: Cardiac monitoring; Complete Time: 20:38 cp 09/10 20:05 Order name: EKG - Nurse/Tech; Complete Time: 20:38 cp 09/10 20:05 Order name: IV Saline Lock; Complete Time: 20:38 cp 09/10 21:12 Order name: US Extremity Venous W Compression Yuriy; Complete Time: 23:33 cp 09/10 23:33 Interpretation: Report reviewed. cp 09/10 22:16 Order name: CT Chest For PE Angio cp 09/10 22:16 Order name: CT Abd/Pelvis - IV Contrast Only cp 09/10 20:05 Order name: Labs collected and sent; Complete Time: 20:42 cp 09/10 20:05 Order name: O2 Per Protocol; Complete Time: 20:42 cp 09/10 20:05 Order name: O2 Sat Monitoring; Complete Time: 20:43 cp EC/22 19:52 Rate is 107 beats/min. Rhythm is regular. OH interval is normal. QRS interval is cp normal. QT interval is normal. T waves are Inverted in leads III, aVR. Interpreted by me. Reviewed by me. Administered Medications: 21:20 Drug: Zofran (Ondansetron) 4 mg Route: IVP; Site: right antecubital; sm5 21:20 Drug: Pepcid (famotidine) 20 mg Route: IVP; Site: right antecubital; sm5 21:21 Drug: morphine 4 mg Route: IVP; Site: right antecubital; 5 09/11 00:28 Drug: morphine 4 mg Route: IVP; Site: right antecubital; st1 00:29 Drug: NS 0.9% 250 ml Route: IV; Rate: bolus; Site: right antecubital; st1 00:57 Drug: Keppra (levETIRAcetam) 1000 mg Route: PO; st1 01:14 Drug: Aspirin Chewable Tablet 324 mg Route: PO; st1 01:14 Drug: Metoprolol 25 mg Route: PO; st1 Disposition: 06:39 Co-signature as Attending Physician, Fazal Frey MD. [email or web address] Disposition Summary: 09/11/21 01:06 Hospitalization Ordered Hospitalization Status: Observation cp Provider: Darrick Fry cp Location: Telemetry/MedSurg (observation) cp Condition: Stable cp Problem: new cp Symptoms: have improved cp Bed/Room Type: Standard Room Assignment: 223(09/11/21 02:41) cg Diagnosis - Chest pain, unspecified cp Forms: - Medication Reconciliation Form cp - SBAR form cp Signatures: Dispatcher [employer] EDMS Derrick Csatillo PA PA cp Yara Vitale, BETH CAMPOS cg Fazal Frey MD MD [email or web address] Zeinab Reinoso RN RN sm5 Mariana Vickers RN RN st1 Mariola Mahmood PA PA sb3 Corrections: (The following items were deleted from the chart) 09/10 20:36 20:33 Immunization history: Client reports receiving the Royal \\T\\ Royal single-dose st1 vaccine. Flu vaccine is not up to date. st1 21:04 20:56 LIPASE+C.LAB.BRZ ordered. EDAK EDMS 09/11 02:41 01:06 cp cg
[2021-09-11] MEDS ORDERED: ASPIRIN 81 MG CHEWABLE TABLET ONE (01:16)
[2021-09-11] MEDS ORDERED: METOPROLOL TAR 25 MG TAB ONE (01:16)
--- NOTE | 2021-09-11 02:23 | P.HP ---
Certification for Inpatient Patient admitted to: Observation With expected LOS: <2 Midnights Patient will require the following post-hospital care: None Practitioner: I am a practitioner with admitting privileges, knowledge of patient current condition, hospital course, and medical plan of care. Services: Services provided to patient in accordance with Admission requirements found in Title 42 Section 412.3 of the Code of Federal Regulations <Mariola Mahmood - Last Filed: 09/11/21 02:15> Patient History Date of Service: 09/11/21 Primary Care Provider: None Reason for admission: Chest Pain History of Present Illness: Patient is a 51-year-old female with past medical history of prior [place], hypertension, seizures, anxiety, and cervical cancer who presented to the ED today after experiencing episodes of chest pain. Patient states that around lunchtime she started having a feeling of electric shocks in her chest that made her left arm feel very heavy. Patient does have anxiety and thought she might be experiencing an anxiety attack so she tried to relax however she then started to feel like something was sitting on her chest, got a headache, and started experiencing pain in both of her legs. In the ED patient's EKG was negative and high-sensitivity troponin was negative at 7.9. Ultrasound of lower extremities, CXR, and CT chest angio negative. Labs remarkable for potassium of 3.4 and BNP 519. Patient was given metoprolol, aspirin, and morphine in the ED. patient will be admitted for observation with cardiology consulting. Home medications list reviewed: Yes - Past Medical/Surgical History Diabetic: No -: COPD -: Hypertension -: migraines -: Depression with anxiety -: Pancreatitis -: Coronary artery disease-prior myocardial infarction -: Diverticulitis -: Seizure disorder -: CAD -: Diverticulitis -: Herniated back disc -: history of seizures -: 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 -: cholecystectomy -: 5 hand surgeries -: tonsilectomy Psychosocial/ Personal History: Lives at home with her boyfriend - Family History Mother -: Heart disease, Hypertension, GI disease, Diabetes, Liver disease, Kidney disease - Social History Smoking Status: Heavy Tobacco smoker (>10 cigarettes/day) Counseled patient to stop smoking for: less than 10 minutes Alcohol use: Yes CD- Drugs: Yes Caffeine use: Yes Place of Residence: Home <Mariola Mahmood - Last Filed: 09/11/21 02:15> Date of Service: 09/11/21 <LisandraKunalganga Manisha - Last Filed: 09/11/21 12:38> Allergies fluoxetine HCl [From Prozac] Allergy (Severe, Verified 07/05/20 08:59) Anaphylaxis Green tea Allergy (Unknown, Uncoded 06/08/20 05:35) seizures Home Medications: Albuterol Inhaler [Ventolin Inhaler*] 2 puff IH BID PRN 01/22/20 Levetiracetam [Keppra] 1,000 mg PO BEDTIME 06/08/20 levETIRAcetam [Levetiracetam] 500 mg PO DAILY 06/08/20 Potassium Gluconate [Potassium] 99 mg PO DAILY 07/05/20 Review of Systems 10-point ROS is otherwise unremarkable General: As per HPI Cardiovascular: Chest Pain, As per HPI Musculoskeletal: Leg Pain <Mariola Mahmood - Last Filed: 09/11/21 02:15> Physical Examination - Physical Exam General: Alert, In no apparent distress HEENT: Atraumatic, PERRLA, Mucous membr. moist/pink, EOMI, Sclerae nonicteric Neck: Supple, 2+ carotid pulse no bruit, No LAD, Without JVD or thyroid abnormality Respiratory: Crackles/rales Cardiovascular: Regular rate/rhythm, Normal S1 S2 Gastrointestinal: Normal bowel sounds, No tenderness Musculoskeletal: No tenderness Integumentary: No rashes Neurological: Normal speech, Normal strength at 5/5 x4 extr, Normal tone, Normal affect - Studies Laboratory Data (last 24 hrs) 09/10/21 20:56: Lipase Cancelled 09/10/21 20:26: PT 11.1, INR 0.97 09/10/21 20:26: WBC 9.90 D, Hgb 12.6, Hct 38.0, Plt Count 485 H 09/10/21 20:26: Sodium 138, Potassium 3.4 L, BUN 11, Creatinine 0.85, Glucose 101, Magnesium 2.2, Total Bilirubin 0.2, AST 8 L, ALT 18, Alkaline Phosphatase 70, Lipase 180 <Mraiola Mahmood - Last Filed: 09/11/21 02:15> - Studies Laboratory Data (last 24 hrs) 09/10/21 20:56: Lipase Cancelled 09/10/21 20:26: PT 11.1, INR 0.97 09/10/21 20:26: WBC 9.90 D, Hgb 12.6, Hct 38.0, Plt Count 485 H 09/10/21 20:26: Sodium 138, Potassium 3.4 L, BUN 11, Creatinine 0.85, Glucose 101, Magnesium 2.2, Total Bilirubin 0.2, AST 8 L, ALT 18, Alkaline Phosphatase 70, Lipase 180 <Darrick Fry - Last Filed: 09/11/21 12:38> Assessment and Plan - Problems (Diagnosis) (1) Chest pain Onset Date: ~09/11/21 Current Visit: Yes Status: Acute (2) Epilepsy Current Visit: No Status: Chronic Qualifiers: Epilepsy type: due to external causes Intractability: not intractable Status epilepticus: without status epilepticus Qualified Code(s): G40.509 - Epileptic seizures related to external causes, not intractable, without status epilepticus (3) Hypertension Current Visit: No Status: Chronic Qualifiers: Hypertension type: primary hypertension Qualified Code(s): I10 - Essential (primary) hypertension - Plan -patient denies chest pain at this time but reports pain in her legs -EKG negative -initial troponin negative. will repeat in 6 hours x 2 -patient received 324 mg aspirin, metoprolol, and atorvastatin -cardiology consulting -morphine prn pain -zofran prn nausea DVT ppx: lovenox Code: Full Discharge Plan: Home Plan to discharge in: 24 Hours - Advance Directives Does patient have a Living Will: No Does patient have a Durable POA for Healthcare: No - Code Status/Comfort Care Code Status Assessed: Yes (Full) Critical Care: No Time Spent Managing Pts Care (In Minutes): 70 <Mariola Mahmood - Last Filed: 09/11/21 02:15> Date of Service: 09/11/21 Subjective: HPI as mentioned above Physical Examination: Vitals: Afebrile vital signs are stable Physical exam: Cardiovascular: Within normal limits. Lungs: Within normal limits Abdomen: Within normal limits Neuro: Awake, alert, oriented to person place and time Assessment: 1. Chest pain rule out acute coronary syndrome 2. Panic attack Plan: 1. Continue with current plan of care as mentioned above <Darrick Fry - Last Filed: 09/11/21 12:38>
[2021-09-11] MEDS ORDERED: ONDANSETRON 4 MG/2 ML VIAL IV PRN (04:05)
[2021-09-11] MEDS ORDERED: ACETAMINOPHEN 500 MG TAB PO PRN (04:05)
[2021-09-11] MEDS ORDERED: hydrOXYzine HCL 25 MG TAB PO PRN (04:05)
[2021-09-11 04:46] LABS: Hematocrit 36.4 % (36.0-45.0); Lymphocytes % 35.2 % (15.3-44.8); MPV 6.1 fL (7.6-11.3)
[2021-09-11] MEDS: MORPHINE 2 MG/ML SYR IV PRN ×3 (04:51→13:01)
[2021-09-11 05:08] LABS: Albumin 3.4 g/dL (3.4-5.0); Bilirubin Total 0.3 mg/dL (0.2-1.0); Potassium 4.2 mmol/L (3.5-5.1); Protein, Total 6.7 g/dL (6.4-8.2); Troponin High Sensitivity 10.5 pg/mL (<58.9)
[2021-09-11 05:11] LABS: Thyroid Stimulating Hormone 6.36 uIU/mL (0.360-3.740)
[2021-09-11 05:16] VITALS: BMI 30.1
[2021-09-11 05:30] VITALS: O2SAT 96
[2021-09-11] MEDS ORDERED: PNEUMOCOCCAL VACCINE 0.5 ML IMVAC ONE (08:00)
[2021-09-11] MEDS ORDERED: INFLUENZA VACCINE (for 6+ mo) 0.5 ML DOSE IMVAC ONE (08:00)
[2021-09-11] MEDS ORDERED: ENOXAPARIN 40 MG/0.4 ML SQ SCH (09:00)
--- NOTE | 2021-09-11 09:08 | CON ---
Date of Consultation: 09/11/2021 History Of Present Illness: Ms. Coon is 51 years old. No real cardiac history. She said she had a heart attack years and years ago, but had an unremarkable catheterization then. No interventions. She comes in complaining of midepigastric pain radiating to the right side without any nausea, vomit ing, diaphoresis, PND, orthopnea, pedal edema, palpitation, or syncope. [place] is already ruled out. Past Medical History: Positive for anxiety, bipolar disorder, depression, seizure disorder, hyperten arleen. She has had a history of cervical cancer. Medications: Her medications at home only include Keppra for her seizure. Allergies: HER ALLERGIES INCLUDE GREEN TEA. Social History: Negative. Review of Systems: Positive for right leg pain. Physical Examination: Vital Signs: Stable, afebrile. HEENT: Negative. Neck: Supple with no bruit. Chest: Clear. Cardiac: Revealed a regular rhythm and rate. No murmurs, gallops, or rubs. Abdomen: Benign. Extremities: Revealed no clubbing, cyanosis, or edema. Diagnostic Data: Included normal chest x-ray and normal labs except for a BNP of 519. Venous Dopple r on the right leg was negative. Impression And Plan: Atypical chest pain, midepigastric, radiates to the right more likely related t o gastroesophageal reflux or gastritis. I suggest proton pump inhibitor. She has an echocardiogram pending because of her elevated BNP. I think her right leg pain is secondary to sciatica. If she st ays in the hospital, maybe doing a stress test. Lexiscan tomorrow would be reasonable only because o f her presumed history of coronary artery disease. Otherwise, she is to continue her Keppra for her seizure. Her blood pressure is well controlled on diet. I will discuss the case further with Dr. Chrissie larson. LANG/JOSELYN Voice ID: [id number] Report ID: [id number]
--- NOTE | 2021-09-11 11:39 | RAD REPORT ---
EXAM DESCRIPTION: CT - Abdomen Pelvis W Contrast - 09/11/2021 8:53 am CLINICAL HISTORY: CHEST PAIN TECHNIQUE: Axial computed tomographic angiography images of the chest with intravenous contrast. S agittal and coronal reformatted images were created and reviewed. This CT exam was performed using one or more of the following dose reduction techniques: automated exposure control, adjustment of t he mA and/or kV according to patient size, and/or use of iterative reconstruction technique. MIP reconstructed images were created and reviewed. COMPARISON: 05/15/2020 FINDINGS: Pulmonary arteries: No pulmonary arterial filling defects. Aorta: Mild atherosclerotic disease. No thoracic aortic aneurysm. Lungs: Left apical calcified granuloma. Mild emphysema. No focal infiltrate. No mass. Pleural space: Unremarkable. No significant effusion. No pneumothorax. Heart: Coronary artery calcification. Minimal pericardial fluid. No evidence of RV dysfunction. Bones/joints: Multilevel spondylosis. No acute fracture. No dislocation. Soft tissues: Unremarkable. Lymph nodes: Unremarkable. No enlarged lymph nodes. * A single impression for all exams can be found at the end of this report EXAM DESCRIPTION: CT Abdomen and Pelvis With Intravenous Contrast CLINICAL HISTORY: ABDOMINAL PAIN TECHNIQUE: Axial computed tomography images of the abdomen and pelvis with intravenous contrast. S agittal and coronal reformatted images were created and reviewed. This CT exam was performed using one or more of the following dose reduction techniques: automated exposure control, adjustment of t he mA and/or kV according to patient size, and/or use of iterative reconstruction technique. COMPARISON: No relevant prior studies available. FINDINGS: ABDOMEN: Liver: Unremarkable. No mass. Gallbladder and bile ducts: Prior cholecystectomy. No ductal dilation. Pancreas: Unremarkable. No mass. No ductal dilation. Spleen: Unremarkable. No splenomegaly. Adrenals: Stable 2.8 x 2.5 x 2.3 cm homogeneous left adrenal nodule, likely benign. No follow-up im aging is necessary. Kidneys and ureters: Subcentimeter right renal cortical hypodensity which is too small to character ize. No follow-up imaging is necessary. No calculi. No hydronephrosis. Stomach and bowel: Moderate stool. Colonic diverticula without adjacent inflammatory change. No obs truction. No appreciable mucosal thickening. PELVIS: Appendix: Normal caliber appendix. No findings to suggest acute appendicitis. Bladder: Unremarkable. No mass. Reproductive: 1.9 cm left ovarian corpus luteal cyst. 2.9 cm anterior uterine fibroid. The right ov alejandrina is unremarkable as visualized. ABDOMEN and PELVIS: Intraperitoneal space: Unremarkable. No free air. No significant fluid collection. Bones/joints: Multilevel spondylosis most pronounced at L4-L5. No acute fracture. No dislocation. Soft tissues: Unremarkable. Vasculature: Mild to moderate atherosclerotic disease. No abdominal aortic aneurysm. Lymph nodes: Unremarkable. No enlarged lymph nodes. * A single impression for all exams can be found at the end of this report IMPRESSION: CT Angiography Chest With Intravenous Contrast: 1. No pulmonary embolic disease. 2. Other findings as above. CT Abdomen and Pelvis With Intravenous Contrast: 1. No acute inflammatory process identified within the abdomen and pelvis. 2. 1.9 cm left ovarian corpus luteal cyst. No follow-up imaging is recommended. Reference: Radiolog y 2009;256(3):943-54 3. Other findings as above. Electronically signed by: Yamilka Mcmillan MD 09/11/2021 12:41 AM BACK END ENGINEER Due to temporary technical issues with the PACS/Fluency reporting system, reports are being signed by the in house radiologist without review as a courtesy to ensure prompt reporting. The interpreting r adiologist is fully responsible for the content of the report.
[2021-09-11 12:40] VITALS: BP 130/82; TEMP 97.2
[2021-09-11] MEDS ORDERED: levETIRAcetam 500 MG TAB PO ONE (12:41)
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
[2021-09-11] MEDS ORDERED: ALPRAZOLAM 0.5 MG TABLET PO ONE (13:00)
[2021-09-11] MEDS ORDERED: ATORVASTATIN 40 MG TAB PO SCH (21:00)
--- NOTE | 2021-09-12 08:16 | ECHO ---
HEIGHT: 5 ft 6 in WEIGHT: 186 lb 8 oz DATE OF STUDY: 09/11/[address]: Migel Warren MD 2-DIMENSIONAL: YES M.MODE: YES DOPPLER: YES COLOR FLOW: YES TDS: NO PORTABLE: NO DEFINITY: NO BUBBLE STUDY: NO DIAGNOSIS: CHEST PAIN CARDIAC HISTORY: CATHERIZATION: NO SURGERY: NO PROSTHETIC VALVE: NO PACEMAKER: NO MEASUREMENTS (cm) DIASTOLIC (NORMALS) SYSTOLIC (NORMALS) IVSd 1.2 (0.6-1.2) LA Diam 3.1 (1.9-4.0) LVEF 64% LVIDd 4.4 (3.5-5.7) LVIDs 2.9 (2.0-3.5) %FS 35% LVPWd 1.4 (0.6-1.2) Ao Diam 2.9 (2.0-3.7) 2 DIMENSIONAL ASSESSMENT: RIGHT ATRIUM: NORMAL LEFT ATRIUM: NORMAL RIGHT VENTRICLE: NORMAL LEFT VENTRICLE: NORMAL TRICUSPID VALVE: NORMAL MITRAL VALVE: NORMAL PULMONIC VALVE: NORMAL AORTIC VALVE: NORMAL PERICARDIAL EFFUSION: NONE AORTIC ROOT: NORMAL LEFT VENTRICULAR WALL MOTION: NORMAL DOPPLER/COLOR FLOW: NORMAL COMMENTS: NORMAL 2D ECHOCARDIOGRAM WITH DOPPLER. NO WALL MOTION ABNORMALITY. NO FFUSION. TECHNOLOGIST: Licha MURPHY
== END 2021-09-11 14:43 | disposition home or self-care (01) ==
LOC: ER 19:34 → ERHOLD 09-11 01:42 → 2ND 09-11 03:38
PROVIDERS: ADMIT Hospitalist; ATTEND Hospitalist
DX: F41.0 Panic disorder [episodic paroxysmal anxiety] (principal); R07.89 Other chest pain; I10 Essential (primary) hypertension; R56.9 Unspecified convulsions; F41.9 Anxiety disorder, unspecified; I25.2 Old myocardial infarction; Z85.41 Personal history of malignant neoplasm of cervix uteri; I25.10 Atherosclerotic heart disease of native coronary artery without angina pectoris; Z20.822 Contact with and (suspected) exposure to COVID-19
CPT/HCPCS: 36415; 71045; 71275; 74177; 80048; 80053; 80061; 80076; 83690; 83735; 83880; 84439; 84443; 84484; 85025; 85610; 93005; 93306; 93970; 96374; 96375; 99285; G0378; J1650; J2270; J2405; J7050; Q9967; U0003

== ENCOUNTER 2021-09-25 20:16 | Emergency (ER) | payer SELFPAY ==
--- OUTSIDE RECORDS SUMMARY | 2021-09-25 20:22 | XMS REPORT | Continuity of Care Document ---
:1970 Author Organization [facility] t Address [address] [place] [address] Care Team Providers Name Role Phone PCP, DOES NOT HAVE A Primary Care Physician Unavailable OTONILE Attending Clinician Unavailable Carlito Grahami Attending Clinician Unavailable Otoniel ELIZONDO Attending Clinician Doctor Unassigned, Name Attending Clinician Unavailable Brandy CAMPOS Attending Clinician Unavailable Palmer BRONSONP Attending Clinician Deo SHERIFF SERGEANT Attending Clinician Unknown Attending Clinician Unavailable UNKNOWN [...] tobacco Cigar Smoker Univ ersity of use [facility] Exposure to Not sure Central of SARS-CoV-2 (event) [facility] Alcohol intake 2021-03-21 2021-03-21 0 /d University of 00:00:00 00:00:00 [facility] Cigarettes smoked 2021-03-14 2021-03-14 Univers ity of current (pack per 00:00:00 00:00:00 ) - Reported Branch Cigarette 2021-03-14 2021-03-14 University of pack-years 00:00:00 00:00:00 [facility] Tobacco use and 2021-03-14 2021-03-14 Never used Universit y of exposure 00:00:00 00:00:00 [facility] Sex [birth year] At [birth year] Universit y of 00:00:00 00:00:00 [facility] Smoking Status Start Date Stop Date Source Current every day smoker 2021-03-14 00:00:00 Uni versity of [facility] Medications Ordered Filled Start Stop [...] 00 :00 dose, Sat Medical 03/16/21 at [place] 2100, STAT ondansetron 2020- No 4mg 4 [...] of (DUONEB) 01:57: 02:15 , ONCE, 1 [place] as 0.5 mg-3 00 :00 dose, Sat [...] Slow IV ity of succ 01:57: 02:11 [place], [place] (SOLU-MEDRO 00 :00 ONCE, 1 Medic [...] Slow IV ity of succ 01:57: 02:11 [place], [place] (SOLU-MEDRO 00 :00 ONCE, 1 Medic [...] nebulizer solution 3 mL levoFLOXaci 2020- No [id number] 500mg Take 1 Univers n 500 mg 03-17 tablet by ity o f tablet 00:00: 04:59 mouth [place] 00 :00 daily for Medical 6 days. [place] levoFLOXaci 2020- No [id number] 500mg Take 1 Univers n 500 mg 03-17 tablet by ity o f tablet 00:00: 04:59 mouth [place] 00 :00 daily for Medical 6 days. [place] levoFLOXaci 2020- No [id number] 500mg Take 1 Univers n 500 mg 03-17 tablet by ity o f tablet 00:00: 04:59 mouth [place] 00 :00 daily for Medical 6 days. [place] levoFLOXaci 2020- No [id number] 500mg Take 1 Univers n 500 mg 03-17 tablet by ity o f tablet 00:00: 04:59 mouth [place] 00 :00 daily for Medical 6 days. [place] predniSONE 2020- No [id number] 30mg Take 3 Univers 10 mg 03-17 tablets by ity of tablet 00:00: 04:59 mouth [place] 00 :00 daily for Medical 4 days. Branch predniSONE 2020- No [id number] 30mg Take 3 Univers 10 mg 03-17 tablets by ity of tablet 00:00: 04:59 mouth [place] 00 :00 daily for Medical 4 days. Branch predniSONE 2020- No [id number] 30mg Take 3 Univers 10 mg 03-17 tablets by ity of tablet 00:00: 04:59 mouth [place] 00 :00 daily for Medical 4 days. Branch predniSONE 2020- No [id number] 30mg Take 3 Univers 10 mg 03-17 tablets by ity of tablet 00:00: 04:59 mouth [place] 00 :00 daily for Medical 4 days. [place] albuterol 2020- No [id number] 4{puff} 4 Puff, Univers (VENTOLIN) 03-15 Inhalation it y of inhaler 4 01:45: 00:44 [place] :[place] dose, [facility] 03/14/21 at Branch 2044, Routine dexamethaso 2020- No [id number] 10mg 10 mg, Univers ne 03-15 Intramuscu ity of (DECADRON) 01:45: 00:45 lar, ONCE, [place] injection 00 :00 1 dose, Medical 10 mg [facility] 03/14/21 at 2044, Routine albuterol Yes [id number] 2.5mg Inhale 3 Univers 2.5 mg /3 8-27 mL every 4 ity of mL (0.083 00:00: (four) [place] %) 00 hours as Medical nebulizer needed for Bran ch solution Wheezing or Shortness of Breath. albuterol Yes [id number] 2.5mg Inhale 3 Univers 2.5 mg /3 8-27 mL every 4 ity of mL (0.083 00:00: (four) [place] %) 00 hours as Medical nebulizer needed for Bran ch solution Wheezing or Shortness of Breath. albuterol Yes [id number] 2.5mg Inhale 3 Univers 2.5 mg /3 8-27 mL every 4 ity of mL (0.083 00:00: (four) [place] %) 00 hours as Medical nebulizer needed for Bran ch solution Wheezing or Shortness of Breath. albuterol Yes [id number] 2.5mg Inhale 3 Univers 2.5 mg /3 8-27 mL every 4 ity of mL (0.083 00:00: (four) [place] %) 00 hours as Medical nebulizer needed for Bran ch solution Wheezing or Shortness of Breath. albuterol Yes [id number] 2.5mg Inhale 3 Univers 2.5 mg /3 8-27 mL every 4 ity of mL (0.083 00:00: (four) [place] %) 00 hours as Medical nebulizer needed for Bran ch solution Wheezing or Shortness of Breath. albuterol 2020-0 Yes [id number] 2.5mg Inhale 3 Univers 2.5 mg /3 8-27 mL every 4 ity of mL (0.083 00:00: (four) [place] %) 00 hours as Medical nebulizer needed for Bran ch solution Wheezing or Shortness of Breath. albuterol 2020-0 Yes [id number] 2.5mg Inhale 3 Univers 2.5 mg /3 8-27 mL every 4 ity of mL (0.083 00:00: (four) [place] %) 00 hours as Medical nebulizer needed for Bran ch solution Wheezing or Shortness of Breath. albuterol 2020-0 Yes [id number] 2.5mg Inhale 3 Univers 2.5 mg /3 [...] (KEPPRA -03 mouth. ity of ORAL) 19:45: [address] Branch levetiracet 2020-0 Yes Take by Un lois am (KEPPRA 8-03 mouth. ity of ORAL) 19:45: [address] Branch levetiracet 2020-0 Yes Take by Un lois am (KEPPRA 8-03 mouth. ity of ORAL) 19:45: [address] Branch levetiracet 2020-0 Yes Take by Un lois am (KEPPRA 8-03 mouth. ity of ORAL) 19:45: [address] Branch levetiracet 2021-0 Yes Take by Un lois am (KEPPRA 02-19 mouth. ity of ORAL) 19:45: [address] levetiracet Yes Take by Un lois am (KEPPRA 02-19 mouth. ity of ORAL) 19:45: [address] LISINOPRIL- 2020- No Take by U nivers HYDROCHLORO 02-19 mouth. ity o f THIAZIDE 19:41: 00:00 [place] ORAL 15 :00 [facility] Branch dicyclomine 2020- No 20mg [...] Tue Medica l NaCl 0.9% 02/19/21 at [facility] h (NS) 50 mL 1415, [...] at Branch 1200, MICHAEL iopamidol 2020- No [id number] 100mL 100 mL, Univers (ISOVUE 02-19 08-03 Intravenou ity o f 370-500 mL) 16:35: 16:45 s, ONCE, 1 [place] injection 00 :00 dose, Tue Medic al 100 mL 02/19/21 at Branch 1145, Routine levetiracet 0 Yes Take by Un lois am (KEPPRA 8-03 mouth. ity of ORAL) 14:45: [address] levetiracet 2020-0 Yes Take by Un lois am (KEPPRA 8-03 mouth. ity of ORAL) 14:45: [address] levetiracet 2020-0 Yes Take by Un lois am (KEPPRA 8-03 mouth. ity of ORAL) 14:45: [address] proMETHazin 2020-0 Yes [id number] 25mg Take 1 Univers e 25 mg 8-03 tablet by ity of tablet 00:00: mouth [place] 00 every 6 Medical (six) Branch hours as needed for Nausea and Vomiting (N/V). dicyclomine 2020-0 Yes [id number] 20mg Take 1 Univers 20 mg 8-03 tablet by ity of tablet 00:00: mouth [place] (four) Medical times Branch daily as needed for Abdominal pain. proMETHazin 2020-0 Yes [id number] 25mg Take 1 Univers e 25 mg 8-03 tablet by ity of tablet 00:00: mouth [place] 00 every 6 Medical (six) Branch hours as needed for Nausea and Vomiting (N/V). dicyclomine 2020-0 Yes [id number] 20mg Take 1 Univers 20 mg 8-03 tablet by ity of tablet 00:00: mouth [place] (four) Medical times Branch daily as needed for Abdominal pain. proMETHazin 2020-0 Yes [id number] 25mg Take 1 Univers e 25 mg 8-03 tablet by ity of tablet 00:00: mouth [place] 00 every 6 Medical (six) Branch hours as needed for Nausea and Vomiting (N/V). dicyclomine 2020-0 Yes [id number] 20mg Take 1 Univers 20 mg 8-03 tablet by ity of tablet 00:00: mouth [place] (four) Medical times Branch daily as needed for Abdominal pain. proMETHazin 1-0 Yes [id number] 25mg Take 1 Univers e 25 mg 8-03 tablet by ity of tablet 00:00: mouth [place] 00 every 6 Medical (six) Branch hours as needed for Nausea and Vomiting (N/V). dicyclomine 2020-0 Yes [id number] 20mg Take 1 Univers 20 mg 8-03 tablet by ity of tablet 00:00: mouth 4 00 (four) Medical times Branch daily as needed for Abdominal pain. proMETHazin 2020-0 Yes [id number] 25mg Take 1 Univers e 25 mg 8-03 tablet by ity of tablet 00:00: mouth [place] 00 every 6 Medical (six) Branch hours as needed for Nausea and Vomiting (N/V). dicyclomine 2020-0 Yes [id number] 20mg Take 1 Univers 20 mg 8-03 tablet by ity of tablet 00:00: mouth 4 00 (four) Medical times Branch daily as needed for Abdominal pain. proMETHazin 2020-0 Yes [id number] 25mg Take 1 Univers e 25 mg 8-03 tablet by ity of tablet 00:00: mouth [place] 00 every 6 Medical (six) Branch hours as needed for Nausea and Vomiting (N/V). dicyclomine 2020-0 Yes [id number] 20mg Take 1 Univers 20 mg 8-03 tablet by ity of tablet 00:00: mouth 4 00 (four) Medical times Branch daily as needed for Abdominal pain. proMETHazin 2020-0 Yes [id number] 25mg Take 1 Univers e 25 mg 8-03 tablet by ity of tablet 00:00: mouth [place] 00 every 6 Medical (six) Branch hours as needed for Nausea and Vomiting (N/V). dicyclomine 2021-0 Yes [id number] 20mg Take 1 Univers 20 mg 8-03 tablet by ity of tablet 00:00: mouth 4 00 (four) Medical times Branch daily as needed for Abdominal pain. proMETHazin 2021-0 Yes [id number] 25mg Take 1 Univers e 25 mg 8-03 tablet by ity of tablet 00:00: mouth [place] 00 every 6 Medical (six) Branch hours as needed for Nausea and Vomiting (N/V). dicyclomine 2021-0 Yes [id number] 20mg Take 1 Univers 20 mg 8-03 tablet by ity of tablet 00:00: mouth 4 00 (four) Medical times Branch daily as needed for Abdominal pain. proMETHazin Yes [id number] 25mg Take 1 Univers e 25 mg 8-03 tablet by ity of tablet 00:00: mouth [place] 00 every 6 Medical (six) Branch hours as needed for Nausea and Vomiting (N/V). dicyclomine Yes [id number] 20mg Take 1 Univers 20 mg 8-03 [...] o f mg tablet 20:05: every 8 [place] (eight) Medical hours as Branch needed. pantoprazol Yes 40mg Take 40 mg Univers e 7-24 by mouth ity of (PROTONIX) 20:05: daily. [place] 40 mg EC Medical tablet Branch ondansetron Yes 4mg Take 4 mg U nivers (ZOFRAN) 4 7-24 by mouth ity o f mg tablet 20:05: every 8 [place] (eight) Medical hours as Branch needed. pantoprazol Yes 40mg Take 40 mg Univers e 7-24 by mouth ity of (PROTONIX) 20:05: daily. [place] 40 mg EC Medical tablet Branch LISINOPRIL- Yes Take by Un lois HYDROCHLORO 7-24 mouth. ity of THIAZIDE 20:05: [place] ORAL Medical Branch ondansetron Yes 4mg Take 4 mg U nivers (ZOFRAN) 4 7-24 by mouth ity o f mg tablet 20:05: every 8 [place] (eight) Medical hours as Branch needed. pantoprazol [...] 7-24 by mouth ity of 19:58: daily. [address] Branch loratadine Yes Take by Uni vers (CLARITIN 7-24 mouth ity of LIQUI-GEL) 19:58: daily. [place] 10 mg 14 Medical capsule Branch MULTIVITAMI Yes 1{tbl} Take 1 Tab Univers N ORAL 7-24 by mouth ity of 19:58: daily. [address] loratadine Yes Take by Uni vers (CLARITIN 7-24 mouth ity of LIQUI-GEL) 19:58: daily. [place] 10 mg 14 Medical capsule Branch MULTIVITAMI Yes 1{tbl} Take 1 Tab Univers N ORAL 7-24 by mouth ity of 19:58: daily. [address] loratadine Yes Take by Uni vers (CLARITIN 7-24 mouth ity of LIQUI-GEL) 19:58: daily. [place] 10 mg 14 Medical capsule Branch MULTIVITAMI Yes 1{tbl} Take 1 Tab Univers N ORAL 7-24 by mouth ity of 19:58: daily. [address] loratadine Yes Take by Uni vers (CLARITIN 7-24 mouth ity of LIQUI-GEL) 19:58: daily. [place] 10 mg 14 Medical capsule Branch MULTIVITAMI Yes 1{tbl} Take 1 Tab Univers N ORAL 7-24 by mouth ity of 19:58: daily. [address] loratadine 0 Yes Take by Uni vers (CLARITIN 7-24 mouth ity of LIQUI-GEL) 19:58: daily. [place] 10 mg 14 Medical capsule Branch MULTIVITAMI Yes 1{tbl} Take 1 Tab Univers N ORAL 7-24 by mouth ity of 19:58: daily. [place] 14 Medical Branch loratadine 2017-0 Yes Take by Uni vers (CLARITIN 7-24 mouth ity of LIQUI-GEL) 19:58: daily. [place] 10 mg 14 Medical capsule Branch MULTIVITAMI 0 Yes 1{tbl} Take 1 Tab Univers N ORAL 7-24 by mouth ity of 19:58: daily. [place] [address] Medical Branch loratadine 2017-0 Yes Take by Uni vers (CLARITIN 7-24 mouth ity of LIQUI-GEL) 19:58: daily. [place] 10 mg 14 Medical capsule Branch ondansetron 0 Yes 4mg Take 4 mg U nivers (ZOFRAN) 4 7-24 by mouth ity o f mg tablet 15:05: every 8 [place] [address] (eight) Medical hours as Branch needed. pantoprazol 2017-0 Yes 40mg Take 40 mg Univers e 7-24 by mouth ity of (PROTONIX) 15:05: daily. [place] 40 mg EC Medical tablet Branch ondansetron Yes 4mg Take 4 mg U nivers (ZOFRAN) 4 7-24 by mouth ity o f mg tablet 15:05: every 8 [place] [address] (eight) Medical hours as Branch needed. pantoprazol 2017-0 Yes 40mg Take 40 mg Univers e 7-24 by mouth ity of (PROTONIX) 15:05: daily. [place] 40 mg EC 01 Medical tablet Branch ondansetron 0 Yes 4mg Take 4 mg U nivers (ZOFRAN) 4 7-24 by mouth ity o f mg tablet 15:05: every 8 [place] [address] (eight) Medical hours as Branch needed. pantoprazol [...] 7-24 by mouth ity of 14:58: daily. [address] loratadine Yes Take by Uni vers (CLARITIN 7-24 mouth ity of LIQUI-GEL) 14:58: daily. [place] 10 mg 14 Medical capsule Branch MULTIVITAMI Yes 1{tbl} Take 1 Tab Univers N ORAL 7-24 by mouth ity of 14:58: daily. [address] loratadine Yes Take by Uni vers (CLARITIN 7-24 mouth ity of LIQUI-GEL) 14:58: daily. [place] 10 mg 14 Medical capsule Branch MULTIVITAMI Yes 1{tbl} Take 1 Tab Univers N ORAL 7-24 by mouth ity of 14:58: daily. [address] Branch loratadine Yes Take by Uni [...] 40 00:00: daily. [place] mg tablet 00 [facility] Immunizations Ordered Filled Immunization Date Status Comments [facility] e Immunization Name Name SARS-COV-2 COVID-19 2021-05-24 Completed Unive rsity of PFIZER VACCINE 00:00:00 [place] [facility] SARS-COV-2 COVID-19 2021-05-03 Completed Unive rsity of PFIZER VACCINE 00:00:00 [place] [facility] SARS-COV-2 COVID-19 2021-05-03 Completed Unive rsity of PFIZER VACCINE 00:00:00 [place] [facility] Vital Signs Vital Name Observation Time Observation Value Comments Source Systolic blood 2021-03-17 03:00:00 117 mm[Hg] Univer sity of pressure [place] [facility] Diastolic blood 2021-03-17 03:00:00 76 mm[Hg] Unive rsity of pressure [place] [facility] Heart rate 2021-03-17 03:00:00 104 /min Universi ty of [place] [facility] Respiratory rate 2021-03-17 03:00:00 28 /min Univ ersity of [place] [facility] Oxygen saturation in 2021-03-17 03:00:00 96 /min University of Arterial blood by [facility] Pulse oximetry Branch Body temperature 2021-03-17 00:39:00 37.11 Radha [facility] ersity of [place] [facility] Body height 2021-03-17 00:39:00 160 cm Universi ty of [place] [facility] Body weight 2021-03-17 00:39:00 58.968 kg Universi ty of [place] [facility] BMI 2021-03-17 00:39:00 23.03 kg/m2 Universi ty of [place] [facility] Systolic blood 2021-03-15 00:14:00 149 mm[Hg] Univer sity of pressure [place] [facility] Diastolic blood 2021-03-15 00:14:00 78 mm[Hg] Unive rsity of pressure [place] [facility] Heart rate 2021-03-15 00:14:00 100 /min Universi ty of [place] [facility] Body temperature 2021-03-15 00:14:00 37.33 Radha Univ ersity of [place] [facility] Respiratory rate 2021-03-15 00:14:00 24 /min Univ ersity of [place] [facility] Body height 2021-03-15 00:14:00 160 cm Universi ty of [place] [facility] Body weight 2021-03-15 00:14:00 58.968 kg Universi ty of [place] [facility] BMI 2021-03-15 00:14:00 23.03 kg/m2 Universi ty of [place] [facility] Oxygen saturation in 2021-03-15 00:14:00 98 /min University of Arterial blood by [facility] Pulse oximetry Branch Systolic blood 2021-02-19 18:00:00 131 mm[Hg] Univer sity of pressure [place] [facility] Diastolic blood 2021-02-19 18:00:00 80 mm[Hg] Unive rsity of pressure [facility] Heart rate 2021-02-19 18:00:00 83 /min [facility] Respiratory rate 2021-02-19 18:00:00 18 /min [facility] Oxygen saturation in 2021-02-19 18:00:00 100 /min [facility] Arterial blood by [facility] Pulse oximetry [place] Body temperature 2021-02-19 15:47:00 37 Radha [facility] Body height 2021-02-19 15:47:00 160 cm [facility] Body weight 2021-02-19 15:47:00 58.968 kg [facility] BMI 2021-02-19 15:47:00 23.03 kg/m2 [facility] Procedures Procedure Date / Time Performing Clinician Source Performed SARS-COV-2 COVID-19 2021-05-24 14:23:12 Doctor Unassigned, [facility] VACCINE,0.3ML,IM (PFIZER) [facility] SARS-COV-2 COVID-19 2021-05-03 14:59:29 Doctor Unassigned, [facility] of [place] VACCINE,0.3ML,IM (PFIZER) [facility] EMERGENCY SERVICES 2021-04-16 05:01:00 Doctor Joe, [facility] AGREEMENTS AND [facility] [place] AUTHORIZATIONS URINALYSIS 2021-03-17 03:09:00 Palmer [facility] XR CHEST 1 VW 2021-03-17 01:45:07 Palmer [facility] TROPONIN I 2021-03-17 01:35:00 Palmer [facility] COMP. METABOLIC PANEL 2021-03-17 01:35:00 [id number] CBC WITH DIFF 2021-03-17 01:35:00 Palmer [facility] N-TERMINAL PRO-BNP 2021-03-17 01:35:00 [facility] (ID NOW RAPID 2021-03-17 00:58:00 Brian Ray [facility] TESTING) Medical Branch CONSENT/REFUSAL FOR 2021-03-17 00:32:59 [facility] DIAGNOSIS AND TREATMENT [place] COVID-19 (ID NOW RAPID 2021-02-19 17:04:00 [facility] TESTING) Medical Branch CT ABDOMEN PELVIS W 2021-02-19 16:41:18 Anali Patel [facility] CONTRAST Medical Branch LIPASE 2021-02-19 15:58:00 Anali Patel [facility] COMP. METABOLIC PANEL 2021-02-19 15:58:00 Anali Patel [facility] ([id number]) Medical Branch CBC WITH DIFF 2021-02-19 15:58:00 Eliana [facility] URINALYSIS 2021-02-19 15:58:00 Eliana [facility] NOTICE OF PRIVACY 2021-02-19 15:30:46 Doctor Joe [facility] PRACTICES [facility] [place] CONSENT/REFUSAL FOR 2021-02-19 15:30:30 Doctor Joe [facility] DIAGNOSIS AND TREATMENT [facility] Encounters Start End Encounter Admission Attending Care Care Encounter Source Date/Time Date/Time Type Type Clinicians Facility Department ID 2021-05-20 Emergency [facility] [id number] Univers 18:48:04 [facility] 2021-05-20 Emergency [facility] [id number] Univers 12:43:40 [facility] 2021-11-21 2021-11-21 Outpatient R [facility] [id number] Univers 09:40:00 09:40:[id number] 2021-05-24 2021-05-24 Outpatient R [facility] [id number] Univers 09:30:00 09:30:00 [id number] [facility] 2021-05-24 2021-05-24 Outpatient R SHILPA FREDERICK [facility] [id number] Univers 09:30:00 09:30:00 ity [facility] 2021-05-24 2021-05-24 Imm/Inj Vaccine, [facility] [place] [id number] Univers 08:47:51 08:57:51 Visit Shilpa [place] [id number] ity of P[place] [id number] [facility] 225 Branch 2021-05-03 2021-05-03 Outpatient R SHILPA FREDERICK [facility] [id number] Univers 09:40:00 09:59:35 ity of [facility] 2021-05-03 2021-05-03 Imm/Inj Vaccine, [facility] [place] 1.2.840.114 [id number] Univers 09:17:43 09:59:35 Visit Shilpa [place] [id number] ity of [place] [phone] [facility] 225 [place] 2021-05-03 2021-05-03 Outpatient R [facility] [id number] Univers 09:40:00 09:40:00 [id number] ity of [facility] 2021-04-16 2021-04-16 Orders Doctor EWELINA 1.2.840.114 [id number] Univers 00:00:00 00:00:00 Only Unassigned, [place] [id number] ity of [place] [facility] 4.2.7.2.686 Javier as [phone] [facility] 009 Branch 2021-03-17 2021-03-17 Telephone EWELINA Nava 1.2.083.686 [id number] Univers 00:00:00 00:00:00 Aneatrice [place] [id number] ity of [facility] 4.2.7.2.686 J[place] as [phone] [facility] 019 Branch 2021-03-16 2021-03-16 Emergency Palmer [facility] 1.2.840.114 [id number] Univers 20:08:00 23:24:00 Fabrice [place] [id number] i ty of [place] [phone] [facility] 084 Branch 2021-03-14 2021-03-14 Urgent Lydia Desouza [facility] 1.2.840.114 [id number] Univers 18:59:34 20:19:13 Care Unknown, Attending [facility] [id number] ity [facility] 4.2.7.2.686 Javier as Prem?Blea [id number] Ok dical [address] Medical Office [facility] 2021-03-14 2021-03-14 Outpatient R [facility] [id number] Univers 19:00:00 19:00:00 [id number] [facility] 2021-03-14 2021-03-14 Outpatient R UNKNOWN, [facility] [id number] Univers 19:00:00 19:00:00 [facility] 2021-02-19 2021-02-19 Emergency Patel, [facility] [id number] Univers 10:49:00 14:48:00 Anali [place] [id number] i ty of [place] [id number] [address] 2019-03-09 2019-03-09 [facility] 1.2.840.114 [id number] 00:00:00 00:00:00 Yehuda Har[place] [id number] [place] 4.2.7.2.686 Professio [id number] [address] 2019-03-09 2019-03-09 Dick [facility] 1.2.840.114 [id number] Univers 00:00:00 00:00:00 Yehuda [place] [id number] ity [facility] 4[place] [phone] [address] Results Test Description Test Time Test Comments Results Result Comments Source URINALYSIS 2021-03-17 03:22:48 Test Item Value Reference Range Interpretation Comme nts APPEARANCE (test code = Hazy Clear A 2831385814) COLOR (test code = 8744058168) Yellow Yellow PH (test code = 3948061973) 4.8-8.0 SP GRAVITY (test code = 1.003-1.030 2393475579) GLU U QUAL (test code = Normal Normal 7185999356) BLOOD (test code = 9173676563) Negative Negative Interference from ascorbic acid may cause false negative results. KETONES (test code = 6563342934) 5 mg/dL Negative A PROTEIN (test code = 2887-8) Negative Negative UROBILIN (test code = 4.0 mg/dL Normal A 4176426996) BILIRUBIN (test code = Negative Negative 3826676353) NITRITE (test code = 5828665979) Negative Negative [place] (test code = Negative Negative 1749172372) RBC/HPF (test code = 1452125837) See_Comment [Automated message] The system which ge nerated this result transmit sherice reference range: 0 - 3 HP F. The reference range was not used to interpret th is result as normal/abnormal . WBC/HPF (test code = 8322561825) <1 See_Comment [Automated message] The system which ge nerated this result transmit sherice reference range: 0 - 5 HP F. The reference range was not used to interpret th is result as normal/abnormal . BACTERIA (test code = Few Negative A 1225514405) SQ EPITH (test code = HPF 7807029164) Lab Interpretation (test code = Abnormal 85019-4) [facility]22[facility]48 Test Item Value Reference Range Interpretation Comments APPEARANCE (test code = Hazy Clear A 3619113438) COLOR (test code = Yellow Yellow 1929066197) PH (test code = 4.8-8.0 5701355582) SP GRAVITY (test code = 1.003-1.030 3393109798) GLU U QUAL (test code = Normal Normal 6221767724) BLOOD (test code = Negative Negative 3071073813) KETONES (test code = 5 mg/dL Negative A 2431024689) PROTEIN (test code = Negative Negative 2887-8) UROBILIN (test code = 4.0 mg/dL Normal A 7747835943) BILIRUBIN (test code = Negative Negative 7777906620) NITRITE (test code = Negative Negative 1616784981) LEUK GRUPO (test code = Negative Negative 3677072961) RBC/HPF (test code = See_Comment [Autom ated message] 4788268470) The system [email or web address] generated this result transmit sherice reference range : 0 - 3 HPF. The refe rence range was not u sed to interpret th is result as normal/abnormal . WBC/HPF (test code = <1 See_Comment [Autom ated message] 1728903506) The system [email or web address] generated this result transmit sherice reference range : 0 - 5 HPF. The refe rence range was not u sed to interpret th is result as normal/abnormal . BACTERIA (test code = Few Negative A 4266532740) SQ EPITH (test code = HPF 5294423385) Lab Interpretation (test Abnormal code = 11766-6) [facility] [id number] 02:45:00 Test Item Value Reference Interpretation Comments Range TROPONIN I (test 0.002 ng/mL See_Comment [Automated code = 3316598614) message] The system which generated this result [...] biotin. Lab Interpretation Normal (test code = 90665-3) [facility] [id number] 02:45:00 Test Item Value Reference Range Interpretation Comments TROPONIN I (test code = 0.002 ng/mL See_Comment [Au tomated 5823347771) message] The sy stem which generated this result transmitted reference range : <=0.034. The reference range was not used to interpret this result as normal/abnormal . LYNDSAY (test code = LYNDSAY) Lab Interpretation Normal (test code = 54377-1) [id number] 02:41:57 Test Item Value Reference Range Interpretation Comments NT-proBNP (test code 169 pg/mL See_Comment H [Autom ated = 7778609162) message] The system which generated this result transmitted reference range : <=125. The reference range was not used to interpret this result as normal/abnormal . LYNDSAY (test code = LYNDSAY) Biotin has been reported to cause a negative bias, interpret results relative to patient's use of biotin. Lab Interpretation Abnormal (test code = 60294-4) [facility] [id number] 02:41:57 Test Item Value Reference Range Interpretation Comments NT-proBNP (test code = 169 pg/mL See_Comment H [Aut omated message] 7172708782) The system [email or web address] generated this result transmit sherice reference range : <=125. The refe rence range was not u sed to interpret th is result as normal/abnormal . LYNDSAY (test code = LYNDSAY) Lab Interpretation (test Abnormal code = 32808-1) [facility]. METABOLIC PANEL (15866)2021-03-17 02:09:13 Test Item Value Reference Range Interpretation Comments NA (test code = 137 mmol/L 135-145 7351101059) K (test code = 4.2 mmol/L 3.5-5.0 9692718885) CL (test code = 102 mmol/L 98-108 1377965317) CO2 TOTAL (test code = 25 mmol/L 23-31 5800797039) AGAP (test code = 2-16 4729485017) BUN (test code = 18 mg/dL 7-23 4228806674) GLUCOSE (test code = 144 mg/dL 70-110 H 0444568098) CREATININE (test code = 0.77 mg/dL 0.50-1.04 2203937413) TOTAL BILI (test code = 0.4 mg/dL 0.1-1.9 9743787865) CALCIUM (test code = 8.9 mg/dL 8.6-10.6 9852692328) T PROTEIN (test code = 6.8 g/dL 6.3-8.2 2343156590) ALBUMIN (test code = 3.9 g/dL 3.5-5.0 7396942766) ALK PHOS (test code = 84 U/L 34-122 5619246083) ALTv (test code = 13 U/L 35 1742-6) AST(SGOT) (test code = 17 U/L 13-40 7785592350) eGFR (test code = mL/min/1.73m2 7002561024) LYNDSAY (test code = LYNDSAY) Association of [...] tests). Lab Interpretation Abnormal (test code = 93213-0) [facility]. METABOLIC PANEL (18696)2021-03-17 02:09:13 Test Item Value Reference Range Interpretation Comments NA (test code = 5242692936) 137 mmol/L 135-145 K (test code = 3684976404) 4.2 mmol/L 3.5-5.0 CL (test code = 9301140571) 102 mmol/L 98-108 CO2 TOTAL (test code = 3488098449) 25 mmol/L 23-31 AGAP (test code = 0137113931) 2-16 BUN (test code = 1443669692) 18 mg/dL 7-23 GLUCOSE (test code = 7207185832) 144 mg/dL 70-110 H CREATININE (test code = 0.77 mg/dL 0.50-1.04 5227230964) TOTAL BILI (test code = 0.4 mg/dL 0.1-1.2 4808577215) CALCIUM (test code = 9974180550) 8.9 mg/dL 8.6-10.6 T PROTEIN (test code = 9886372794) 6.8 g/dL 6.3-8.2 ALBUMIN (test code = 0082188577) 3.9 g/dL 3.5-5.0 ALK PHOS (test code = 4746855714) 84 U/L 34-122 ALTv (test code = 1742-6) 13 U/L 5-35 AST(SGOT) (test code = 9625440714) 17 U/L 13-40 eGFR (test code = 7835085217) mL/min/1.73m2 LYNDSAY (test code = LYNDSAY) Lab Interpretation (test code = Abnormal 29834-3) [facility] WITH [id number] 01:56:33 Test Item Value Reference Range Interpretation Comments WBC (test code = See_Comment H [Automated 9390-2) message] The sy stem which generated this result transmitted reference range : 4.30 - 11.10 10*3/?L. The reference range was not used to interpret this result as normal/abnormal . RBC (test code = See_Comment [Automated 099-8) message] The sy stem which generated this [...] (test code = 55.5 fL 39.0-49.9 H 78620-5) RDW-CV (test code = 18.9 % 12.0-15.5 H 788-0) PLT (test code = See_Comment H [Automated 777-3) message] The sy stem which generated this result transmitted reference range : 166 - 358 10*3/ ?L. The reference r zoe was not used to interpret this result as normal/abnormal . MPV (test code = 8.2 fL 9.5-12.9 L 45753-4) NRBC/100 WBC (test See_Comment [Automat ed code = 1369555325) message] The system which generated this result transmitted reference range : 0.0 - 10.0 /100 WBCs. The refer ence range was not u sed to interpret th is result as normal/abnormal . NRBC x10^3 (test code <0.01 See_Comment [Auto mated = 9461212538) message] The s ystem which generated this result transmitted reference range : 10*3/?L. The reference range was not used to interpret this result as normal/abnormal . GRAN MAT (NEUT) % 61.7 % (test code = 770-8) IMM GRAN % (test code 0.80 % = 6796967192) LYMPH % (test code = 28.5 % 736-9) MONO % (test code = 6.3 % 5905-5) EOS % (test code = 1.8 % 713-8) BASO % (test code = 0.9 % 706-2) GRAN MAT x10^3(ANC) 7.31 10*3/uL 1.88-7.09 H (test code = 7422302379) IMM GRAN x10^3 (test 0.09 10*3/uL 0.00-0.06 H code = 6641070840) LYMPH x10^3 (test code 3.38 10*3/uL 1.32-3.29 H = 731-0) MONO x10^3 (test code 0.75 10*3/uL 0.33-0.92 = 742-7) EOS x10^3 (test code = 0.21 10*3/uL 0.03-0.39 711-2) BASO x10^3 (test code 0.11 10*3/uL 0.01-0.07 H = 704-7) Lab Interpretation Abnormal (test code = 92579-4) [facility] WITH [id number] 01:56:33 Test Item Value Reference Range Interpretation [...] (test code = 55.5 fL 39.0-49.9 H 84710-3) RDW-CV (test code = 18.9 % 12.0-15.5 H 788-0) PLT (test code = See_Comment H [Automated 777-3) message] The sy stem which generated this result transmitted reference range : 166 - 358 10*3/ ?L. The reference r zoe was not used to interpret this result as normal/abnormal . MPV (test code = 8.2 fL 9.5-12.9 L 11746-8) NRBC/100 WBC (test See_Comment [Automat ed code = 7274397691) message] The system which generated this result transmitted reference range : 0.0 - 10.0 /100 WBCs. The refer ence range was not u sed to interpret th is result as normal/abnormal . NRBC x10^3 (test code <0.01 See_Comment [Auto mated = 4347360842) message] The s [employer] which generated this result transmitted reference range : 10*3/?L. The reference range was not used to interpret this result as normal/abnormal . GRAN MAT (NEUT) % 61.7 % (test code = 770-8) IMM GRAN % (test code 0.80 % = 5322206625) LYMPH % (test code = 28.5 % 736-9) MONO % (test code = 6.3 % 5905-5) EOS % (test code = 1.8 % 713-8) BASO % (test code = 0.9 % 706-2) GRAN MAT x10^3(ANC) 7.31 10*3/uL 1.88-7.09 H (test code = 9923369072) IMM GRAN x10^3 (test 0.09 10*3/uL 0.00-0.06 H code = 1610696369) LYMPH x10^3 (test code 3.38 10*3/uL 1.32-3.29 H = 731-0) MONO x10^3 (test code 0.75 10*3/uL 0.33-0.92 = 742-7) EOS x10^3 (test code = 0.21 10*3/uL 0.03-0.39 711-2) BASO x10^3 (test code 0.11 10*3/uL 0.01-0.07 H = 704-7) Lab Interpretation Abnormal (test code = 49800-9) [facility]2021-03-17 01:38:12 Test Item Value Reference Range Interpretation Comments SARS-CoV-2 Rapid ID NOW Not Detected Not Detected (test code = 49045-1) LYNDSAY (test code = LYNDSAY) ID NOW COVID-19 Assay is an isothermal nucleic acid amplification test intended for the qualitative detection of nucleic acid from SARS-CoV-2 viral RNA in nasopharyngeal (NURSING PROGRAM CHAIR) specimens. It is used under Emergency Use [...] indicated. Lab Interpretation Normal (test code = 89346-4) [facility]2021-03-17 01:38:12 Test Item Value Reference Range Interpretation Comments SARS-CoV-2 Rapid ID NOW (test Not Detected Not Detected code = 01111-4) LYNDSAY (test code = LYNDSAY) Lab Interpretation (test code = Normal 80230-1) [facility]2021-[facility]-19 17:42:45 Test Item Value Reference Range Interpretation Comments SARS-CoV-2 Rapid ID NOW Not Detected Not Detected (test code = 82986-4) LYNDSAY (test code = LYNDSAY) ID NOW COVID-19 Assay is an isothermal nucleic acid amplification test intended for the qualitative detection of nucleic acid from SARS-CoV-2 viral RNA in nasopharyngeal (NURSING PROGRAM CHAIR) specimens. It is used under Emergency Use [...] indicated. Lab Interpretation Normal (test code = 02483-1) [facility] [id number] 17:24:55Thickening of the gastric antrum and duodenal bulb could be fromunderdistention, the differential would include sequela of peptic ulcerdisease. No findings of ulcer perforation. Otherwise, no acute intra- abdominal or pelvic abnormality. Stable thickening and nodularity of the left adrenal gland. RL: 0038 Patient name: EUSEBIA ONTIVEROSB: 1970 51 years [...] nodularity of the left adrenal gland.RL: 8722 [facility]inalysis[facility] 17:03:40 Test Item Value Reference Range Interpretation Comments APPEARANCE (test code = Hazy Clear A 6719455260) COLOR (test code = Mabel Yellow A 0536670559) PH (test code = 4.8-8.0 4925109050) SP GRAVITY (test code = 1.003-1.030 H 1303730465) GLU U QUAL (test code = Normal Normal 7213229599) BLOOD (test code = Negative Negative 8044270568) KETONES (test code = 5 mg/dL Negative A 2409355862) PROTEIN (test code = 30 mg/dL Negative A 2887-8) UROBILIN (test code = 4.0 mg/dL Normal A 3913359232) BILIRUBIN (test code = 4 mg/dL Negative A 0404004763) NITRITE (test code = Negative Negative 6080635977) LEUK GRUPO (test code = Negative Negative 4570300788) RBC/HPF (test code = See_Comment H [Autom ated message] 3585484505) The system [email or web address] generated this result transmit sherice reference range : 0 - 3 HPF. The refe rence range was not u sed to interpret th is result as normal/abnormal . WBC/HPF (test code = See_Comment H [Autom ated message] 2992171523) The system [email or web address] generated this result transmit sherice reference range : 0 - 5 HPF. The refe rence range was not u sed to interpret th is result as normal/abnormal . BACTERIA (test code = Few Negative A 9038112360) MUCOUS (test code = Moderate Negative LPF A 0056657989) SQ EPITH (test code = HPF 9456519809) CA OXALATE (test code = See_Comment H [Au tomated message] 6758384200) The system [email or web address] generated this result transmit sherice reference range : <=1 HPF. The refere nce range was not u sed to interpret th is result as normal/abnormal . Ictotest (test code = Negative 9840671660) Lab Interpretation (test Abnormal code = 56527-6) [facility] Metabolic [id number] 16:34:55 Test Item Value Reference Range Interpretation Comments NA (test code = 139 mmol/L 135-145 3711978583) K (test code = 4.3 mmol/L 3.5-5.0 0383270851) CL (test code = 105 mmol/L 98-108 5361404220) CO2 TOTAL (test code 26 mmol/L 23-31 = 8349405724) AGAP (test code = 2-16 0005712859) BUN (test code = 11 mg/dL 7-23 4684209451) GLUCOSE (test code = 95 mg/dL 70-110 4783819834) CREATININE (test code 0.70 mg/dL 0.50-1.04 = 5381805816) TOTAL BILI (test code 0.6 mg/dL 0.1-1.1 = 8136139076) CALCIUM (test code = 8.9 mg/dL 8.6-10.6 4584470279) T PROTEIN (test code 7.7 g/dL 6.3-8.2 = 1637278646) ALBUMIN (test code = 4.1 g/dL 3.5-5.0 5956353627) ALK PHOS (test code = 79 U/L 34-122 7175588122) ALTv (test code = 10 U/L 5-35 1742-6) AST(SGOT) (test code 22 U/L 13-40 = 0451372461) eGFR (test code = mL/min/1.73m2 5153356023) LYNDSAY (test code = LYNDSAY) Association of [...] or urine or abnormalities in imaging tests). [facility] CenterLip[facility], [id number] 16:34:14 Test Item Value Reference Range Interpretation Comments LIPASE (test code = 9068304614) 45 U/L 0-220 Lab Interpretation (test code = Normal 98361-9) [facility] with [id number] 16:21:12 Test Item Value Reference Range Interpretation Comments WBC (test code = See_Comment [Automated 1490-2) message] The sy stem which generated this [...] (test code = 54.4 fL 39.0-49.9 H 26707-7) RDW-CV (test code = 18.3 % 12.0-15.5 H 788-0) PLT (test code = See_Comment H [Automated 777-3) message] The sy stem which generated this result transmitted reference range : 166 - 358 10*3/ ?L. The reference r zoe was not used to interpret this result as normal/abnormal . MPV (test code = 8.5 fL 9.5-12.9 L 15269-1) NRBC/100 WBC (test See_Comment [Automat ed code = 6814946948) message] The system which generated this result transmitted reference range : 0.0 - 10.0 /100 WBCs. The refer ence range was not u sed to interpret th is result as normal/abnormal . NRBC x10^3 (test code <0.01 See_Comment [Auto mated = 5963157834) message] The s ystem which generated this result transmitted reference range : 10*3/?L. The reference range was not used to interpret this result as normal/abnormal . GRAN MAT (NEUT) % 78.3 % (test code = 770-8) IMM GRAN % (test code 0.40 % = 5711749922) LYMPH % (test code = 15.4 % 736-9) MONO % (test code = 4.8 % 5905-5) EOS % (test code = 0.1 % 713-8) BASO % (test code = 1.0 % 706-2) GRAN MAT x10^3(ANC) 7.15 10*3/uL 1.88-7.09 H (test code = 2308228731) IMM GRAN x10^3 (test 0.04 10*3/uL 0.00-0.06 code = 9863990197) LYMPH x10^3 (test code 1.41 10*3/uL 1.32-3.29 = 731-0) MONO x10^3 (test code 0.44 10*3/uL 0.33-0.92 = 742-7) EOS x10^3 (test code = <0.03 0.03-0.39 L 711-2) BASO x10^3 (test code 0.09 10*3/uL 0.01-0.07 H = 704-7) Lab Interpretation Abnormal (test code = 66598-3) [facility]"
[2021-09-25 20:46] LABS: Urine Blood 1+ (Negative); Urine Glucose Negative (Negative); Urine Protein Negative (Negative); Urine Specific Gravity 1.025 (1.005-1.030)
[2021-09-25] MEDS ORDERED: MORPHINE 4 MG/ML SYR ONE (21:01)
[2021-09-25] MEDS ORDERED: NA CHLORIDE 0.9% 1,000 ML ONE (21:02)
[2021-09-25] MEDS ORDERED: FAMOTIDINE 20 MG/2 ML VIAL IV ONE (21:02)
[2021-09-25] MEDS ORDERED: ONDANSETRON 4 MG/2 ML VIAL ONE (21:02)
[2021-09-25 21:08] LABS: Absolute Lymphocytes (CBC) 3.4 K/uL (0.7-4.9); Hematocrit 39.2 % (36.0-45.0); Lymphocytes % 35.7 % (15.3-44.8); MPV 6.2 fL (7.6-11.3); RBC Red Blood Cell Count 4.75 M/uL (3.86-4.86)
[2021-09-25 21:22] LABS: ALT/SGPT 25 U/L (12-78); AST/SGOT 18 U/L (15-37); Albumin 3.8 g/dL (3.4-5.0); Alkaline Phosphatase 78 U/L (45-117); BUN Blood Urea Nitrogen 17 mg/dL (7-18); Bicarbonate 22 mmol/L (21-32); Bilirubin Total 0.2 mg/dL (0.2-1.0); Glucose Level 93 mg/dL (74-106); Lipase 150 U/L (73-393); Protein, Total 7.4 g/dL (6.4-8.2); Sodium Level 136 mmol/L (136-145)
[2021-09-25 21:23] LABS: Bilirubin Direct < 0.1 mg/dL (0-0.2)
[2021-09-25] MEDS ORDERED: LEVETIRACETAM 500 MG/5 ML VIAL IV ONE (21:25)
[2021-09-25] MEDS ORDERED: NA CHLORIDE 0.9% 250 ML ONE ×2 (21:25→23:20)
[2021-09-25 21:47] LABS: Barbiturates NEGATIVE (NEGATIVE); Benzodiazepines NEGATIVE (NEGATIVE); Cocaine NEGATIVE (NEGATIVE); METHAMPHETAM NEGATIVE (NEGATIVE); Methadone NEGATIVE (NEGATIVE); Opiates NEGATIVE (NEGATIVE); Phencyclidine NEGATIVE (NEGATIVE); THC Cannibis NEGATIVE (NEGATIVE)
--- NOTE | 2021-09-25 22:12 | RAD REPORT ---
EXAM DESCRIPTION: RAD - Chest Single View - 09/25/2021 9:05 pm CLINICAL HISTORY: CHEST PAIN COMPARISON: Portable 09/10/2021 TECHNIQUE: AP portable chest image was obtained 09/25/2021 9:05 pm . FINDINGS: No focal mass or consolidation. Portable technique and overlying soft tissues accentuate l kareem base markings. True or significant change from comparison is doubtful. Heart and vasculature are normal. No measurable pleural effusion and no pneumothorax. No acute bony abnormality seen. No acute aortic findings suspected. IMPRESSION: No acute cardiopulmonary process.
[2021-09-25 22:17] LABS: SARS-COV-2 RT PCR NEGATIVE (NEGATIVE)
[2021-09-25] MEDS ORDERED: METOCLOPRAMIDE 10 MG/2mL INJ ONE (23:20)
--- NOTE | 2021-09-26 00:12 | ER ---
Nurse's Notes [facility] Name: Heather Coon Age: 51 yrs Sex: Female : 1970 Arrival Date: 09/25/2021 Time: 20:18 Bed 27 Private MD: Diagnosis: Lower abdominal pain, unspecified;Nausea with vomiting, unspecified;Constipation Presentation: 09/25 20:37 Chief complaint: Patient states: "My stomach hurts so bad, I think its my ab2 diverticulitis. I also have this chest pressure and its hard to catch my breath." Pt also c/o N/V and constipation x3 days. Coronavirus screen: Vaccine status: Patient reports receiving the 2nd dose of the covid vaccine. Client denies travel out of the [place] in the last 14 days. At this time, the client does not indicate any symptoms associated with coronavirus-19. Ebola Screen: Patient negative for fever greater than or equal to 101.5 degrees Fahrenheit, and additional compatible Ebola Virus Disease symptoms Patient denies exposure to infectious person. Patient denies travel to an Ebola-affected area in the 21 days before illness onset. No symptoms or risks identified at this time. Initial Sepsis Screen: Does the patient meet any 2 criteria? No. Patient's initial sepsis screen is negative. Does the patient have a suspected source of infection? No. Patient's initial sepsis screen is negative. Risk Assessment: Do you want to hurt yourself or someone else? Patient reports no desire to harm self or others. Onset of symptoms is unknown. 20:37 Method Of Arrival: Ambulatory ab2 20:37 Acuity: ANDER 3 ab2 Triage Assessment: 20:40 General: Appears in no apparent distress. uncomfortable, Behavior is restless. Pain: ab2 Complains of pain in left lower quadrant. GI: Reports lower abdominal pain, nausea, vomiting. 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 - Social history:: Smoking status: Patient denies any tobacco usage or history of. Screenin:51 Abuse screen: Denies threats or abuse. Nutritional screening: No deficits noted. lr4 Tuberculosis screening: No symptoms or risk factors identified. Fall Risk None identified. Assessment: 20:48 General: Appears in no apparent distress. uncomfortable, Behavior is cooperative, lr4 anxious, Reports feeling ill for 2-3 days. Pain: Complains of pain in abdomen Pain radiates to chest Pain currently is 10 out of 10 on a pain scale. Pain began 2-3 days ago. Neuro: No deficits noted. Cardiovascular: Heart tones S1 S2 Capillary refill < 3 seconds Rhythm is regular Chest pain is described as vague, quality is burning. Respiratory: No deficits noted. GI: Abdomen is round distended, obese, Bowel sounds present X 4 quads. Abd is non tender X 4 quads Abdomen is tender to palpation. 20:49 Reassessment: No changes from previously documented assessment. Pt insisted on carolynn ambulating to the exam room, not riding in a w/c. She was able to provide urine. GI: Reports lower abdominal pain. 22:19 Reassessment: pt to ct. lr4 22:26 Reassessment: Patient states symptoms have not improved. GI: Pt is actively vomiting lr4 clear fluid, undigested food, pt actively vomiting as she returned from CT. Vital Signs: 20:37 BP 178 / 111; Pulse 106; Resp 22; Temp 98.5(O); Pulse Ox 98% on R/A; Weight 73.94 kg; ab2 Height 5 ft. 5 in. (165.10 cm); Pain 10/10; 21:37 BP 162 / 100; Pulse 82; Resp 16; Temp 98.5; Pulse Ox 98% on R/A; Pain 5/10; carolynn 22:16 BP 163 / 107; Pulse 82; Resp 18; Pulse Ox 97% on R/A; lr4 23:22 BP 154 / 109; Pulse 84; Resp 20; Pulse Ox 98% on R/A; lr4 03/10 00:24 Pulse 90; Resp 18; Pulse Ox 96% on R/A; tw5 09/25 20:37 Body Mass Index 27.12 (73.94 kg, 165.10 cm) ab2 ED Course: 09/25 20:18 Patient arrived in ED. es 20:31 Lisa Caldera, RN is Primary Nurse. carolynn 20:35 Fazal Frey MD is Attending Physician. mh7 20:40 Triage completed. ab2 20:42 Arm band placed on right wrist. ab2 20:51 Patient has correct armband on for positive identification. Bed in low position. Call lr4 light in reach. Side rails up X 1. Pulse ox on. NIBP on. Door closed. Noise minimized. 20:51 No provider procedures requiring assistance completed. lr4 20:57 Troponin High Sensitivity Sent. carolynn 20:57 Liver (Hepatic) Function Sent. carolynn 20:57 Basic Metabolic Panel Sent. carolynn 20:57 UDS Sent. carolynn 20:57 Basic Metabolic Panel Sent. carolynn 20:57 Hepatic Function Sent. carolynn 20:57 CBC with Diff Sent. carolynn 20:58 Lipase Sent. carolynn 20:58 Urine --Ancillary (enter results) Sent. carolynn 20:59 Inserted saline lock: 22 gauge in left wrist, using aseptic technique. Blood collected. ds4 Missed attempt(s): 20 gauge in right antecubital area. Bleeding controlled, band aid applied, catheter tip intact. 21:05 Chest Single View XRAY In Process Unspecified. EDMS 21:37 COVID-19/FLU A+B (Document "Date of Onset" if Symptomatic) Sent. carolynn 21:37 COVID-19/FLU A+B Sent. carolynn 22:34 CT Abd/Pelvis - IV Contrast Only In Process Unspecified. EDMS 09/26 00:01 IV discontinued, intact, bleeding controlled, No redness/swelling at site. Pressure lr4 dressing applied. Administered Medications: 09/25 21:00 Drug: Pepcid (famotidine) 20 mg Route: IVP; Site: left wrist; lr4 21:08 Follow up: Response: Pain is decreased; Nausea is decreased lr4 21:07 Drug: NS 0.9% 1000 ml Route: IV; Rate: 1000 ml; Site: left wrist; lr4 21:08 Follow up: IV Status: Infusion continued lr4 23:14 Follow up: Response: No adverse reaction; IV Status: Completed infusion; IV Intake: lr4 1000ml 21:07 Drug: morphine 4 mg Route: IVP; Site: left wrist; lr4 21:08 Follow up: Response: Pain is decreased lr4 21:07 Drug: Zofran (Ondansetron) 4 mg Route: IVP; Site: left wrist; lr4 21:07 Follow up: Response: Nausea is decreased lr4 21:30 Drug: Keppra (levETIRAcetam) 1000 mg Route: IV; Rate: per protocol; Site: left forearm; carolynn 23:13 Follow up: IV Status: Completed infusion lr4 23:23 Drug: Reglan (metoCLOPramide) 20 mg Route: IVP; Site: left wrist; lr4 09/26 00:24 Follow up: Response: No adverse reaction tw5 00:24 Drug: Citrate of Magnesia Liquid 300 ml Route: PO; tw5 00:24 Follow up: Response: No adverse reaction; Medication administered at discharge. tw5 Intake: 09/25 23:14 IV: 1000ml; Total: 1000ml. lr4 Outcome: 20:51 Condition: stable lr4 09/26 00:01 Discharged to home ambulatory. lr4 Discharge instructions given to patient. 00:11 Discharge ordered by . 7 00:24 Discharged to home ambulatory. tw5 00:24 Condition: good 00:24 Discharge instructions given to patient, Instructed on discharge instructions, follow up and referral plans. the need for admit, medication usage, Demonstrated understanding of instructions, follow-up care, medications, Prescriptions given X 00:25 Patient left the ED. tw5 Signatures: Dispatcher [employer] Di Mancia Donovan ds4 Fazal Frey MD MD Monik Segura tw5 Lisa Caldera RN RN bo Bleininger, Alexis ab2 Rogers, Lashaunda, RN RN lr4
--- NOTE | 2021-09-26 00:12 | EDPHYS ---
Physician Documentation [facility] Name: Heather Coon Age: 51 yrs Sex: Female : 1970 Arrival Date: 09/25/2021 Time: 20:18 Bed 27 Private MD: ED Physician Fazal Frey HPI: 09/25 20:55 This 51 yrs old Female presents to ER via Ambulatory with complaints of Vomiting, mh7 Abdominal Pain, Chest Pain. 20:55 The patient presents to the emergency department with nausea, that is moderate, mh7 vomiting, that is intermittent, described as clear fluid, abdominal pain, of the epigastric area and left lower quadrant, described as intermittent, vague,\\E\\ waxing and waning, and does not radiate. Onset: The symptoms/episode began/occurred 3 day(s) ago. Possible causes: flare up of bowel problem, Diverticulitis. The symptoms are aggravated by nothing. The symptoms are alleviated by nothing. Associated signs and symptoms: Pertinent positives: constipation, nausea, vomiting, Pertinent negatives: anorexia, belching, diarrhea, dysuria, fever, flatulence, GI bleeding, hematuria, vaginal discharge. Severity of symptoms: At their worst the symptoms were moderate 2 day(s) ago, in the emergency department the symptoms are unchanged. 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 - Social history:: Smoking status: Patient denies any tobacco usage or history of. ROS: 20:55 Constitutional: Negative for fever, chills, and weight loss, Eyes: Negative for injury, mh7 pain, redness, and discharge, ENT: Negative for injury, pain, and discharge, Neck: Negative for injury, pain, and swelling, Cardiovascular: Negative for chest pain, palpitations, and edema, Respiratory: Negative for shortness of breath, cough, wheezing, and pleuritic chest pain, Back: Negative for injury and pain, : Negative for injury, bleeding, discharge, and swelling, MS/Extremity: Negative for injury and deformity, Skin: Negative for injury, rash, and discoloration, Neuro: Negative for headache, weakness, numbness, tingling, and seizure, Psych: Negative for depression, anxiety, suicide ideation, homicidal ideation, and hallucinations, Allergy/Immunology: Negative for hives, rash, and allergies, Endocrine: Negative for neck swelling, polydipsia, polyuria, polyphagia, and marked weight changes, Hematologic/Lymphatic: Negative for swollen nodes, abnormal bleeding, and unusual bruising. Exam: 20:55 Head/Face: Normocephalic, atraumatic. Eyes: Pupils equal round and reactive to light, mh7 extra-ocular motions intact. Lids and lashes normal. Conjunctiva and sclera are non-icteric and not injected. Cornea within normal limits. Periorbital areas with no swelling, redness, or edema. Neck: Trachea midline, no thyromegaly or masses palpated, and no cervical lymphadenopathy. Supple, full range of motion without nuchal rigidity, or vertebral point tenderness. No Meningismus. Chest/axilla: Normal chest wall appearance and motion. Nontender with no deformity. No lesions are appreciated. Cardiovascular: Regular rate and rhythm with a normal S1 and S2. No gallops, murmurs, or rubs. Normal PMI, no JVD. No pulse deficits. Respiratory: Lungs have equal breath sounds bilaterally, clear to auscultation and percussion. No rales, rhonchi or wheezes noted. No increased work of breathing, no retractions or nasal flaring. Back: No spinal tenderness. No costovertebral tenderness. Full range of motion. Skin: Warm, dry with normal turgor. Normal color with no rashes, no lesions, and no evidence of cellulitis. MS/ Extremity: Pulses equal, no cyanosis. Neurovascular intact. Full, normal range of motion. Neuro: Awake and alert, GCS 15, oriented to person, place, time, and situation. Cranial nerves II-XII grossly intact. Motor strength 5/5 in all extremities. Sensory grossly intact. Cerebellar exam normal. Normal gait. Psych: Awake, alert, with orientation to person, place and time. Behavior, mood, and affect are within normal limits. 20:55 Constitutional: The patient appears in no acute distress, alert, awake, uncomfortable. 20:55 ECG was reviewed by the Attending Physician. mh7 20:55 Abdomen/GI: Inspection: obese Bowel sounds: normal, in all quadrants, Palpation: 7 moderate abdominal tenderness, in the epigastric area and left lower quadrant, mass, is not appreciated, rebound tenderness, is not appreciated, voluntary guarding, is not appreciated, involuntary guarding, is not appreciated, no appreciated organomegaly, Rectal exam: the exam is deferred, because of patient request, Indicators: McBurney's point is not tender, Zapata's sign is negative, Rovsing's sign is negative, Obturator sign is negative, Psoas sign is negative, Liver: no appreciated palpable abnormalities, Hernia: not appreciated. Vital Signs: 20:37 BP 178 / 111; Pulse 106; Resp 22; Temp 98.5(O); Pulse Ox 98% on R/A; Weight 73.94 kg; ab2 Height 5 ft. 5 in. (165.10 cm); Pain 10/10; 21:37 BP 162 / 100; Pulse 82; Resp 16; Temp 98.5; Pulse Ox 98% on R/A; Pain 5/10; carolynn 22:16 BP 163 / 107; Pulse 82; Resp 18; Pulse Ox 97% on R/A; lr4 23:22 BP 154 / 109; Pulse 84; Resp 20; Pulse Ox 98% on R/A; lr4 03 00:24 Pulse 90; Resp 18; Pulse Ox 96% on R/A; tw5 09/25 20:37 Body Mass Index 27.12 (73.94 kg, 165.10 cm) ab2 MDM: 00:09 Differential diagnosis: Nonspecific abd pain, gastritis, pancreatitis, diverticulitis, mh7 viral gastroenteritis, gastroenteritis. Data reviewed: vital signs, nurses notes, old medical records, lab test result(s), cardiac enzymes, CBC, electrolytes, urinalysis, EKG, radiologic studies, CT scan, plain films. Data interpreted: Pulse oximetry: on room air is 98 %. Interpretation: normal. Counseling: I had a detailed discussion with the patient and/or guardian regarding: the historical points, exam findings, and any diagnostic results supporting the discharge/admit diagnosis, the presence of at least one elevated blood pressure reading (>120/80) during this emergency department visit, lab results, radiology results, the need for outpatient follow up, to return to the emergency department if symptoms worsen or persist or if there are any questions or concerns that arise at home. Response to treatment: the patient's symptoms have markedly improved after treatment, patient is well hydrated. 00:11 Patient medically screened. [facility] 09/25 20:46 Order name: Urine Dipstick-Ancillary; Complete Time: 20:54 [facility] 09/25 20:47 Order name: Urine --Ancillary (enter results); Complete Time: 21:14 [facility] 09/25 20:51 Order name: Basic Metabolic Panel [facility] 09/25 20:51 Order name: CBC with Diff; Complete Time: 21:14 [facility] 09/25 20:51 Order name: Hepatic Function [facility] 09/25 20:51 Order name: Lipase; Complete Time: 22:00 [facility] 09/25 20:51 Order name: UDS; Complete Time: 22:00 [facility] 09/25 20:52 Order name: Basic Metabolic Panel; Complete Time: 22:00 [facility] 09/25 20:52 Order name: Liver (Hepatic) Function; Complete Time: 22:00 [facility] 09/25 20:53 Order name: Troponin High Sensitivity; Complete Time: 22:00 [facility] 09/25 20:53 Order name: Chest Single View XRAY; Complete Time: 22:28 [facility] 09/25 21:16 Order name: COVID-19/FLU A+B (Document "Date of Onset" if Symptomatic) [facility] 09/25 21:16 Order name: COVID-19/FLU A+B; Complete Time: 22:28 [facility] 09/25 22:01 Order name: CT Abd/Pelvis - IV Contrast Only [facility] 09/25 20:51 Order name: IV Saline Lock; Complete Time: 20:57 [facility] 09/25 20:51 Order name: Labs collected and sent; Complete Time: 20:57 [facility] 09/25 20:53 Order name: EKG - Nurse/Tech; Complete Time: 20:56 [facility] EC/09 20:55 Rate is 96 beats/min. Rhythm is regular, Normal Sinus Rhythm with No ectopy. Right axis mh7 deviation noted. QRS is negative in leads V1, V2, V3. NC interval is normal. QRS interval is normal. QT interval is normal. No Q waves. T waves are Normal. No ST changes noted. Clinical impression: Abnormal EKG without significant change, No change from prior ECG, and No evidence of ischemia. Administered Medications: 21:00 Drug: Pepcid (famotidine) 20 mg Route: IVP; Site: left wrist; lr4 21:08 Follow up: Response: Pain is decreased; Nausea is decreased lr4 21:07 Drug: NS 0.9% 1000 ml Route: IV; Rate: 1000 ml; Site: left wrist; lr4 21:08 Follow up: IV Status: Infusion continued lr4 23:14 Follow up: Response: No adverse reaction; IV Status: Completed infusion; IV Intake: lr4 1000ml 21:07 Drug: morphine 4 mg Route: IVP; Site: left wrist; lr4 21:08 Follow up: Response: Pain is decreased lr4 21:07 Drug: Zofran (Ondansetron) 4 mg Route: IVP; Site: left wrist; lr4 21:07 Follow up: Response: Nausea is decreased lr4 21:30 Drug: Keppra (levETIRAcetam) 1000 mg Route: IV; Rate: per protocol; Site: left forearm; carolynn 23:13 Follow up: IV Status: Completed infusion lr4 23:23 Drug: Reglan (metoCLOPramide) 20 mg Route: IVP; Site: left wrist; lr4 09/26 00:24 Follow up: Response: No adverse reaction tw5 00:24 Drug: Citrate of Magnesia Liquid 300 ml Route: PO; tw5 00:24 Follow up: Response: No adverse reaction; Medication administered at discharge. tw5 Disposition Summary: 09/26/21 00:11 Discharge Ordered Location: Home [facility] Problem: an ongoing problem [facility] Symptoms: have improved mh7 Condition: Stable 7 Diagnosis - Lower abdominal pain, unspecified mh7 - Nausea with vomiting, unspecified mh7 - Constipation mh7 Followup: [facility] - With: Private Physician - When: 1 - 2 days - Reason: Worsening of condition, Recheck today's complaints, Continuance of care, Re-evaluation by your physician Discharge Instructions: - Discharge Summary Sheet [facility] - High-Fiber Diet [facility] - Nausea and Vomiting, Adult 7 - Constipation, Adult, [id number] [facility] - Abdominal Pain, Adult, [id number] [facility] Forms: - Medication Reconciliation Form [facility] - Thank You Letter [facility] - Antibiotic Education [facility] - Prescription Opioid Use [facility] Prescriptions: - Dulcolax (bisacodyl) 10 mg Rectal suppository - insert 1 suppository by RECTAL route once daily as needed for constipation; 5 mh7 suppository; Refills: 0, Product Selection Permitted - ondansetron 4 mg Oral tablet,disintegrating - place 1 tablet by TRANSLINGUAL route every 8 hours As needed; 10 tablet; [facility] Refills: 0, Product Selection Permitted - Colace 100 mg Oral Tablet - take 1 tablet by ORAL route every 12 hours; 14 tablet; Refills: 0, Product [facility] Selection Permitted - Lactulose 10 gram/15 mL Oral Solution - take 30 milliliters by ORAL route once daily; 150 milliliter; Refills: 0, [facility] Product Selection Permitted - dicyclomine 20 mg Oral Tablet - take 1 tablet by ORAL route 4 times per day As needed; 20 tablet; Refills: 0, [facility] Product Selection Permitted Signatures: Dispatcher [employer] Fazal Mcintosh MD MD 7 Monik Simon 5 Lisa Caldera, RN RN David Rene Lashaunda, RN RN lr4
[2021-09-26] MEDS ORDERED: MAGNESIUM CITRATE 300 ML BOT ONE (00:19)
[2021-09-26 00:38] VITALS: TEMP 98.5
[2021-09-26 00:43] VITALS: BP 154/109
[2021-09-26 00:44] VITALS: O2SAT 96
--- NOTE | 2021-09-26 10:37 | RAD REPORT ---
EXAM DESCRIPTION: Abdomen Pelvis W Contrast CLINICAL HISTORY: 51-year-old female with abdominal pain, nausea, vomiting and constipation. COMPARISON: 09/10/2021. TECHNIQUE: CT of the abdomen and pelvis was performed following intravenous administration of contra st. Oral contrast was not administered. Multiplanar reformatted images were provided. This exam was p erformed according to our departmental dose optimization program which includes use of automated expo sure control, adjustment of the mA and/or kV according to patient size and/or use of iterative recons truction technique. FINDINGS: Chest: Evaluation through the lung bases reveals no focal opacity, pleural effusion or pne umothorax. Heart size is within normal limits. No pericardial effusion. Abdomen and pelvis: The liver, pancreas, spleen, bilateral kidneys and RIGHT adrenal gland are within normal limits. Stable LEFT adrenal gland focus of hypoattenuation measuring approximately [address] suggestive of adrenal adenoma measuring up to 3 cm similar in appearance to the previous examinati on. Surgical clips at the level of the gallbladder fossa status post cholecystectomy. The vessels reveal atherosclerotic calcification, otherwise patent and normal in caliber. No abdominopelvic lymph nodes are noted to be pathologically enlarged by CT measurement criteria. The bowel is within normal limits without abnormal bowel wall thickness or bowel dilation. Large volu me of fecal content present throughout the large bowel raising the question of fecal stasis or consti pation. No free air. No free abdominopelvic fluid collections. The appendix is within normal limits. The uterus reveals a fundal focus of ventral enhancement measuring 4 cm compatible with the uterine l eiomyomata. Nonspecific prominence of the bilateral ovaries. The osseous structures reveal degenerative change of the lumbar spine. Moderate to severe disk bulge present at L2-3, L3-4, L4-5 and L5-S1 vertebral levels. There is associated moderate to severe neurof oraminal narrowing. Near complete loss of disk height and vacuum disk phenomenon present at the L3-4 and L4-5 levels. IMPRESSION: 1. No specific acute intra-abdominal findings are noted to suggest etiology of the pat ient's abdominal pain. 2. Large volume of fecal content present throughout the large bowel raising the question of fecal s tasis or constipation. 3. Stable LEFT adrenal mass suggestive of a 3 cm adenoma. 4. Moderate to severe degenerative change of the lumbar spine. Electronically signed by: Zeinab Alas MD 09/25/2021 10:55 PM STAFFING COORDINATOR Due to temporary technical issues with the PACS/Fluency reporting system, reports are being signed by the in house radiologist without review as a courtesy to ensure prompt reporting. The interpreting r adiologist is fully responsible for the content of the report.
== END 2021-09-26 00:25 | disposition home or self-care (01) ==
LOC: ER 20:16
DX: K59.00 Constipation, unspecified (principal); R11.2 Nausea with vomiting, unspecified; I10 Essential (primary) hypertension; F31.9 Bipolar disorder, unspecified; I25.2 Old myocardial infarction; Z85.41 Personal history of malignant neoplasm of cervix uteri; Z86.73 Personal history of transient ischemic attack (TIA), and cerebral infarction without residual deficits; Z88.5 Allergy status to narcotic agent; Z91.018 Allergy to other foods; Z20.822 Contact with and (suspected) exposure to COVID-19
CPT/HCPCS: 0240U; 36415; 71045; 74177; 80048; 80076; 80307; 81003; 81025; 83690; 84484; 85025; 93005; 96365; 96366; 96375; 99284; J1953; J2405; J2765; J7030; J7050; Q9967

== ENCOUNTER 2021-10-20 15:52 | Emergency (ER) | payer SELFPAY ==
--- OUTSIDE RECORDS SUMMARY | 2021-10-20 15:57 | XMS REPORT | Continuity of Care Document ---
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 Unknown Attending Clinician Unavailable UNKNOWN [...] tobacco Cigar Smoker Univ ersity of use [facility] Exposure to Not sure [place] of SARS-CoV-2 (event) [facility] Alcohol intake 2021-03-21 2021-03-21 0 /d University of 00:00:00 00:00:00 [facility] Cigarettes smoked 2021-03-14 2021-03-14 Univers ity of current (pack per 00:00:00 00:00:00 ) - Reported Branch Cigarette 2021-03-14 2021-03-14 University of pack-years 00:00:00 00:00:00 [facility] Tobacco use and 2021-03-14 2021-03-14 Never used Universit y of exposure 00:00:00 00:00:00 [facility] Sex [birth year] At [birth year] Universit y of 00:00:00 00:00:00 [facility] Smoking Status Start Date Stop Date Source Current every day smoker 2021-03-14 00:00:00 Uni versity of [facility] Medications Ordered Filled Start Stop Current Ordering Indication Dosage Frequency Signature Comments Components Source Medication Medication Date Date Medication? Clinician (SIG) Name Name levoFLOXaci 2020- No 500mg 500 mg, U nivers n 03-17 Oral, ity of (LEVAQUIN) 04:00: 04:22 ONCE, 1 [place] tablet 500 00 :00 dose, Sat Medi kwame mg 03/16/21 at Branch 2315, MICAHEL
Re ason for Anti-Infec tive: Documented Infection< [...] 00 :00 dose, Sat Medical 03/16/21 at [place] 2100, STAT ondansetron 2020- No 4mg 4 [...] Slow IV ity of succ 01:57: 02:11 [place], [place] (SOLU-MEDRO 00 :00 ONCE, 1 Medic [...] Slow IV ity of succ 01:57: 02:11 [place], [place] (SOLU-MEDRO 00 :00 ONCE, 1 Medic [...] nebulizer solution 3 mL levoFLOXaci 2020- No [id number] 500mg Take 1 Univers n 500 mg 03-17 tablet by ity o f tablet 00:00: 04:59 mouth [place] 00 :00 daily for Medical 6 days. [place] levoFLOXaci 2020- No [id number] 500mg Take 1 Univers n 500 mg 03-17 tablet by ity o f tablet 00:00: 04:59 mouth [place] 00 :00 daily for Medical 6 days. [place] levoFLOXaci 2020- No [id number] 500mg Take 1 Univers n 500 mg 03-17 tablet by ity o f tablet 00:00: 04:59 mouth [place] 00 :00 daily for Medical 6 days. [place] levoFLOXaci 2020- No [id number] 500mg Take 1 Univers n 500 mg 03-17 tablet by ity o f tablet 00:00: 04:59 mouth [place] 00 :00 daily for Medical 6 days. [place] predniSONE 2020- No [id number] 30mg Take 3 Univers 10 mg 03-17 tablets by ity of tablet 00:00: 04:59 mouth [place] 00 :00 daily for Medical 4 days. Branch predniSONE 2020- No [id number] 30mg Take 3 Univers 10 mg 03-17 tablets by ity of tablet 00:00: 04:59 mouth [place] 00 :00 daily for Medical 4 days. Branch predniSONE 2020- No [id number] 30mg Take 3 Univers 10 mg 03-17 tablets by ity of tablet 00:00: 04:59 mouth [place] 00 :00 daily for Medical 4 days. Branch predniSONE 2020- No [id number] 30mg Take 3 Univers 10 mg 03-17 tablets by ity of tablet 00:00: 04:59 mouth [place] 00 :00 daily for Medical 4 days. [place] albuterol 2020- No [id number] 4{puff} 4 Puff, Univers (VENTOLIN) 03-15 Inhalation it y of inhaler 4 01:45: 00:44 , [place] :[place] dose, [place] Medical 03/14/21 at Branch 2044, Routine dexamethaso 2020- No [id number] 10mg 10 mg, Univers ne 03-15 Intramuscu ity of (DECADRON) 01:45: 00:45 lar, ONCE, [place] injection 00 :00 1 dose, Medical 10 mg [facility] 03/14/21 at 2044, Routine albuterol Yes [id number] 2.5mg Inhale 3 Univers 2.5 mg /3 8-27 mL every 4 ity of mL (0.083 00:00: (four) [place] %) 00 hours as Medical nebulizer needed for Bran ch solution Wheezing or Shortness of Breath. albuterol Yes [id number] 2.5mg Inhale 3 Univers 2.5 mg /3 8-27 mL every 4 ity of mL (0.083 00:00: (four) [place] %) 00 hours as Medical nebulizer needed for Bran ch solution Wheezing or Shortness of Breath. albuterol Yes [id number] 2.5mg Inhale 3 Univers 2.5 mg /3 8-27 mL every 4 ity of mL (0.083 00:00: (four) [place] %) 00 hours as Medical nebulizer needed for Bran ch solution Wheezing or Shortness of Breath. albuterol Yes [id number] 2.5mg Inhale 3 Univers 2.5 mg /3 8-27 mL every 4 ity of mL (0.083 00:00: (four) [place] %) 00 hours as Medical nebulizer needed for Bran ch solution Wheezing or Shortness of Breath. albuterol Yes [id number] 2.5mg Inhale 3 Univers 2.5 mg /3 8-27 mL every 4 ity of mL (0.083 00:00: (four) [place] %) 00 hours as Medical nebulizer needed for Bran ch solution Wheezing or Shortness of Breath. albuterol 2020-0 Yes [id number] 2.5mg Inhale 3 Univers 2.5 mg /3 8-27 mL every 4 ity of mL (0.083 00:00: (four) [place] %) 00 hours as Medical nebulizer needed for Bran ch solution Wheezing or Shortness of Breath. albuterol 2020-0 Yes [id number] 2.5mg Inhale 3 Univers 2.5 mg /3 8-27 mL every 4 ity of mL (0.083 00:00: (four) [place] %) 00 hours as Medical nebulizer needed for Bran ch solution Wheezing or Shortness of Breath. albuterol 2020-0 Yes [id number] 2.5mg Inhale 3 Univers 2.5 mg /3 [...] (KEPPRA -03 mouth. ity of ORAL) 19:45: [address] Branch levetiracet 2020-0 Yes Take by Un lois am (KEPPRA 8-03 mouth. ity of ORAL) 19:45: [address] Branch levetiracet 2020-0 Yes Take by Un lois am (KEPPRA 8-03 mouth. ity of ORAL) 19:45: [address] Branch levetiracet 2020-0 Yes Take by Un lois am (KEPPRA 8-03 mouth. ity of ORAL) 19:45: [address] Branch levetiracet 2021-0 Yes Take by Un lois am (KEPPRA 02-19 mouth. ity of ORAL) 19:45: [address] levetiracet Yes Take by Un lois am (KEPPRA 02-19 mouth. ity of ORAL) 19:45: [address] LISINOPRIL- 2020- No Take by U nivers HYDROCHLORO 02-19 mouth. ity o f THIAZIDE 19:41: 00:00 [place] ORAL 15 :00 [facility] Branch dicyclomine 2020- No 20mg 20 [...] Tue Medica l NaCl 0.9% 02/19/21 at [facility] h (NS) 50 mL 1415, 50 piggyback [...] at Branch 1200, MICHAEL iopamidol 2020- No [id number] 100mL 100 mL, Univers (ISOVUE 02-19 08-03 Intravenou ity o f 370-500 mL) 16:35: 16:45 s, ONCE, 1 [place] injection 00 :00 dose, Tue Medic al 100 mL 02/19/21 at Branch 1145, Routine levetiracet 0 Yes Take by Un lois am (KEPPRA 8-03 mouth. ity of ORAL) 14:45: [address] levetiracet 2020-0 Yes Take by Un lois am (KEPPRA 8-03 mouth. ity of ORAL) 14:45: [address] levetiracet 2020-0 Yes Take by Un lois am (KEPPRA 8-03 mouth. ity of ORAL) 14:45: [address] proMETHazin 2020-0 Yes [id number] 25mg Take 1 Univers e 25 mg 8-03 tablet by ity of tablet 00:00: mouth [place] 00 every 6 Medical (six) Branch hours as needed for Nausea and Vomiting (N/V). dicyclomine 2020-0 Yes [id number] 20mg Take 1 Univers 20 mg 8-03 tablet by ity of tablet 00:00: mouth [place] (four) Medical times Branch daily as needed for Abdominal pain. proMETHazin 2020-0 Yes [id number] 25mg Take 1 Univers e 25 mg 8-03 tablet by ity of tablet 00:00: mouth [place] 00 every 6 Medical (six) Branch hours as needed for Nausea and Vomiting (N/V). dicyclomine 2020-0 Yes [id number] 20mg Take 1 Univers 20 mg 8-03 tablet by ity of tablet 00:00: mouth [place] (four) Medical times Branch daily as needed for Abdominal pain. proMETHazin 2020-0 Yes [id number] 25mg Take 1 Univers e 25 mg 8-03 tablet by ity of tablet 00:00: mouth [place] 00 every 6 Medical (six) Branch hours as needed for Nausea and Vomiting (N/V). dicyclomine 2020-0 Yes [id number] 20mg Take 1 Univers 20 mg 8-03 tablet by ity of tablet 00:00: mouth [place] (four) Medical times Branch daily as needed for Abdominal pain. proMETHazin 1-0 Yes [id number] 25mg Take 1 Univers e 25 mg 8-03 tablet by ity of tablet 00:00: mouth [place] 00 every 6 Medical (six) Branch hours as needed for Nausea and Vomiting (N/V). dicyclomine 2020-0 Yes [id number] 20mg Take 1 Univers 20 mg 8-03 tablet by ity of tablet 00:00: mouth 4 00 (four) Medical times Branch daily as needed for Abdominal pain. proMETHazin 2020-0 Yes [id number] 25mg Take 1 Univers e 25 mg 8-03 tablet by ity of tablet 00:00: mouth [place] 00 every 6 Medical (six) Branch hours as needed for Nausea and Vomiting (N/V). dicyclomine 2020-0 Yes [id number] 20mg Take 1 Univers 20 mg 8-03 tablet by ity of tablet 00:00: mouth 4 00 (four) Medical times Branch daily as needed for Abdominal pain. proMETHazin 2020-0 Yes [id number] 25mg Take 1 Univers e 25 mg 8-03 tablet by ity of tablet 00:00: mouth [place] 00 every 6 Medical (six) Branch hours as needed for Nausea and Vomiting (N/V). dicyclomine 2020-0 Yes [id number] 20mg Take 1 Univers 20 mg 8-03 tablet by ity of tablet 00:00: mouth 4 00 (four) Medical times Branch daily as needed for Abdominal pain. proMETHazin 2020-0 Yes [id number] 25mg Take 1 Univers e 25 mg 8-03 tablet by ity of tablet 00:00: mouth [place] 00 every 6 Medical (six) Branch hours as needed for Nausea and Vomiting (N/V). dicyclomine 2021-0 Yes [id number] 20mg Take 1 Univers 20 mg 8-03 tablet by ity of tablet 00:00: mouth 4 00 (four) Medical times Branch daily as needed for Abdominal pain. proMETHazin 2021-0 Yes [id number] 25mg Take 1 Univers e 25 mg 8-03 tablet by ity of tablet 00:00: mouth [place] 00 every 6 Medical (six) Branch hours as needed for Nausea and Vomiting (N/V). dicyclomine 2021-0 Yes [id number] 20mg Take 1 Univers 20 mg 8-03 tablet by ity of tablet 00:00: mouth 4 00 (four) Medical times Branch daily as needed for Abdominal pain. proMETHazin Yes [id number] 25mg Take 1 Univers e 25 mg 8-03 tablet by ity of tablet 00:00: mouth [place] 00 every 6 Medical (six) Branch hours as needed for Nausea and Vomiting (N/V). dicyclomine Yes [id number] 20mg Take 1 Univers 20 mg 8-03 [...] o f mg tablet 20:05: every 8 [place] (eight) Medical hours as Branch needed. pantoprazol Yes 40mg Take 40 mg Univers e 7-24 by mouth ity of (PROTONIX) 20:05: daily. [place] 40 mg EC Medical tablet Branch ondansetron Yes 4mg Take 4 mg U nivers (ZOFRAN) 4 7-24 by mouth ity o f mg tablet 20:05: every 8 [place] (eight) Medical hours as Branch needed. pantoprazol Yes 40mg Take 40 mg Univers e 7-24 by mouth ity of (PROTONIX) 20:05: daily. [place] 40 mg EC Medical tablet Branch LISINOPRIL- Yes Take by Un lois HYDROCHLORO 7-24 mouth. ity of THIAZIDE 20:05: [place] ORAL Medical Branch ondansetron Yes 4mg Take 4 mg U nivers (ZOFRAN) 4 7-24 by mouth ity o f mg tablet 20:05: every 8 [place] (eight) Medical hours as Branch needed. pantoprazol [...] 7-24 by mouth ity of 19:58: daily. [address] Branch loratadine Yes Take by Uni vers (CLARITIN 7-24 mouth ity of LIQUI-GEL) 19:58: daily. [place] 10 mg 14 Medical capsule Branch MULTIVITAMI Yes 1{tbl} Take 1 Tab Univers N ORAL 7-24 by mouth ity of 19:58: daily. [address] loratadine Yes Take by Uni vers (CLARITIN 7-24 mouth ity of LIQUI-GEL) 19:58: daily. [place] 10 mg 14 Medical capsule Branch MULTIVITAMI Yes 1{tbl} Take 1 Tab Univers N ORAL 7-24 by mouth ity of 19:58: daily. [address] loratadine Yes Take by Uni vers (CLARITIN 7-24 mouth ity of LIQUI-GEL) 19:58: daily. [place] 10 mg 14 Medical capsule Branch MULTIVITAMI Yes 1{tbl} Take 1 Tab Univers N ORAL 7-24 by mouth ity of 19:58: daily. [address] loratadine Yes Take by Uni vers (CLARITIN 7-24 mouth ity of LIQUI-GEL) 19:58: daily. [place] 10 mg 14 Medical capsule Branch MULTIVITAMI Yes 1{tbl} Take 1 Tab Univers N ORAL 7-24 by mouth ity of 19:58: daily. [address] loratadine 0 Yes Take by Uni vers (CLARITIN 7-24 mouth ity of LIQUI-GEL) 19:58: daily. [place] 10 mg 14 Medical capsule Branch MULTIVITAMI Yes 1{tbl} Take 1 Tab Univers N ORAL 7-24 by mouth ity of 19:58: daily. [place] 14 Medical Branch loratadine 2017-0 Yes Take by Uni vers (CLARITIN 7-24 mouth ity of LIQUI-GEL) 19:58: daily. [place] 10 mg 14 Medical capsule Branch MULTIVITAMI 0 Yes 1{tbl} Take 1 Tab Univers N ORAL 7-24 by mouth ity of 19:58: daily. [place] [address] Medical Branch loratadine 2017-0 Yes Take by Uni vers (CLARITIN 7-24 mouth ity of LIQUI-GEL) 19:58: daily. [place] 10 mg 14 Medical capsule Branch ondansetron 0 Yes 4mg Take 4 mg U nivers (ZOFRAN) 4 7-24 by mouth ity o f mg tablet 15:05: every 8 [place] [address] (eight) Medical hours as Branch needed. pantoprazol 2017-0 Yes 40mg Take 40 mg Univers e 7-24 by mouth ity of (PROTONIX) 15:05: daily. [place] 40 mg EC Medical tablet Branch ondansetron Yes 4mg Take 4 mg U nivers (ZOFRAN) 4 7-24 by mouth ity o f mg tablet 15:05: every 8 [place] [address] (eight) Medical hours as Branch needed. pantoprazol 2017-0 Yes 40mg Take 40 mg Univers e 7-24 by mouth ity of (PROTONIX) 15:05: daily. [place] 40 mg EC 01 Medical tablet Branch ondansetron 0 Yes 4mg Take 4 mg U nivers (ZOFRAN) 4 7-24 by mouth ity o f mg tablet 15:05: every 8 [place] [address] (eight) Medical hours as Branch needed. pantoprazol [...] 7-24 by mouth ity of 14:58: daily. [address] loratadine Yes Take by Uni vers (CLARITIN 7-24 mouth ity of LIQUI-GEL) 14:58: daily. [place] 10 mg 14 Medical capsule Branch MULTIVITAMI Yes 1{tbl} Take 1 Tab Univers N ORAL 7-24 by mouth ity of 14:58: daily. [address] loratadine Yes Take by Uni vers (CLARITIN 7-24 mouth ity of LIQUI-GEL) 14:58: daily. [place] 10 mg 14 Medical capsule Branch MULTIVITAMI Yes 1{tbl} Take 1 Tab Univers N ORAL 7-24 by mouth ity of 14:58: daily. [address] Branch loratadine Yes Take by Uni [...] 00:00: daily. [place] mg tablet 00 [facility] Immunizations Ordered Filled Immunization Date Status Comments [facility] e Immunization Name Name SARS-COV-2 COVID-19 2021-05-24 Completed Unive rsity of PFIZER VACCINE 00:00:00 [facility] SARS-COV-2 COVID-19 2021-05-03 Completed Unive rsity of PFIZER VACCINE 00:00:00 [facility] SARS-COV-2 COVID-19 2021-05-03 Completed Unive rsity of PFIZER VACCINE 00:00:00 [facility] Vital Signs Vital Name Observation Time Observation Value Comments Source Systolic blood 2021-03-17 03:00:00 117 mm[Hg] Univer sity of pressure [place] [facility] Diastolic blood 2021-03-17 03:00:00 76 mm[Hg] Unive rsity of pressure [place] [facility] Heart rate 2021-03-17 03:00:00 104 /min Universi ty of [place] [facility] Respiratory rate 2021-03-17 03:00:00 28 /min Univ ersity of [place] [facility] Oxygen saturation in 2021-03-17 03:00:00 96 /min University of Arterial blood by [facility] Pulse oximetry Branch Body temperature 2021-03-17 00:39:00 37.11 Radha [facility] ersity of [place] [facility] Body height 2021-03-17 00:39:00 160 cm Universi ty of [place] [facility] Body weight 2021-03-17 00:39:00 58.968 kg Universi ty of [place] [facility] BMI 2021-03-17 00:39:00 23.03 kg/m2 Universi ty of [place] [facility] Systolic blood 2021-03-15 00:14:00 149 mm[Hg] Univer sity of pressure [place] [facility] Diastolic blood 2021-03-15 00:14:00 78 mm[Hg] Unive rsity of pressure [place] [facility] Heart rate 2021-03-15 00:14:00 100 /min Universi ty of [place] [facility] Body temperature 2021-03-15 00:14:00 37.33 Radha Univ ersity of [place] [facility] Respiratory rate 2021-03-15 00:14:00 24 /min Univ ersity of [place] [facility] Body height 2021-03-15 00:14:00 160 cm Universi ty of [place] [facility] Body weight 2021-03-15 00:14:00 58.968 kg Universi ty of [place] [facility] BMI 2021-03-15 00:14:00 23.03 kg/m2 Universi ty of [place] [facility] Oxygen saturation in 2021-03-15 00:14:00 98 /min University of Arterial blood by [facility] Pulse oximetry Branch Systolic blood 2021-02-19 18:00:00 131 mm[Hg] Univer sity of pressure [place] [facility] Diastolic blood 2021-02-19 18:00:00 80 mm[Hg] Unive rsity of pressure [facility] Heart rate 2021-02-19 18:00:00 83 /min [facility] Respiratory rate 2021-02-19 18:00:00 18 /min [facility] Oxygen saturation in 2021-02-19 18:00:00 100 /min [facility] Arterial blood by [facility] Pulse oximetry [place] Body temperature 2021-02-19 15:47:00 37 Radha [facility] Body height 2021-02-19 15:47:00 160 cm [facility] Body weight 2021-02-19 15:47:00 58.968 kg [facility] BMI 2021-02-19 15:47:00 23.03 kg/m2 [facility] Procedures Procedure Date / Time Performing Clinician Source Performed SARS-COV-2 COVID-19 2021-05-24 14:23:12 Doctor Unassigned, [facility] VACCINE,0.3ML,IM (PFIZER) [place] [facility] SARS-COV-2 COVID-19 2021-05-03 14:59:29 Doctor Unassigned, [facility] [place] VACCINE,0.3ML,IM (PFIZER) [place] [facility] EMERGENCY SERVICES 2021-04-16 05:01:00 Doctor Joe, [facility] AGREEMENTS AND [place] [facility] [place] AUTHORIZATIONS URINALYSIS 2021-03-17 03:09:00 Palmer [facility] XR CHEST 1 VW 2021-03-17 01:45:07 Palmer [facility] TROPONIN I 2021-03-17 01:35:00 Palmer [facility] COMP. METABOLIC PANEL 2021-03-17 01:35:00 [facility] ([id number] CBC WITH DIFF 2021-03-17 01:35:00 Palmer [facility] N-TERMINAL PRO-BNP 2021-03-17 01:35:00 [facility] COVID-19 (ID NOW RAPID 2021-03-17 00:58:00 Brian [facility] TESTING) Medical Branch CONSENT/REFUSAL FOR 2021-03-17 00:32:59 [facility] DIAGNOSIS AND TREATMENT [place] Medical Branch COVID-19 (ID NOW RAPID 2021-02-19 17:04:00 [facility] Medical Branch CT ABDOMEN PELVIS W 2021-02-19 16:41:18 Anali Patel [facility] CONTRAST Medical Branch LIPASE 2021-02-19 15:58:00 Anali Patel [facility] COMP. METABOLIC PANEL 2021-02-19 15:58:00 Anali Patel [facility] ([id number]) Medical Branch CBC WITH DIFF 2021-02-19 15:58:00 Eliana [facility] URINALYSIS 2021-02-19 15:58:00 Eliana [facility] NOTICE OF PRIVACY 2021-02-19 15:30:46 Doctor Joe [facility] PRACTICES [place] [facility] [place] CONSENT/REFUSAL FOR 2021-02-19 15:30:30 Doctor Joe [facility] DIAGNOSIS AND TREATMENT [place] [facility] Encounters Start End Encounter Admission Attending Care Care Encounter Source Date/Time Date/Time Type Type Clinicians Facility Department ID 2021-05-20 Emergency [facility] [id number] Univers 18:48:04 [facility] 2021-05-20 Emergency [facility] [id number] Univers 12:43:40 [facility] 2021-11-21 2021-11-21 Outpatient R [facility] [id number] Univers 09:40:00 09:40:[id number] [facility] 2021-05-24 2021-05-24 Outpatient R [facility] [id number] Univers 09:30:00 09:30:00 [id number] [facility] 2021-05-24 2021-05-24 Outpatient R SHILPA FREDERICK [facility] [id number] Univers 09:30:00 09:30:00 ity [facility] [place] 2021-05-24 2021-05-24 Imm/Inj Vaccine, [facility] [place] [id number] Univers 08:47:51 08:57:51 Visit Shilpa [place] [id number] ity of [place] [facility] [id number] [facility] 225 Branch 2021-05-03 2021-05-03 Outpatient R SHILPA FREDERICK [facility] [id number] Univers 09:40:00 09:59:35 ity of [facility] 2021-05-03 2021-05-03 Imm/Inj Vaccine, [facility] [place] [id number] Univers 09:17:43 09:59:35 Visit Shilpa [place] [id number] ity of [place] [id number] [facility] 225 [place] 2021-05-03 2021-05-03 Outpatient R [facility] [id number] Univers 09:40:00 09:40:00 [id number] ity of [facility] 2021-04-16 2021-04-16 Orders Doctor EWELINA 1.2.840.114 [id number] Univers 00:00:00 00:00:00 Only Unassigned, [place] [id number] ity of [place] [facility] 4.2.7.2.686 Javier as [phone] [facility] 009 Branch 2021-03-17 2021-03-17 Telephone EWELINA Nava [id number] Univers 00:00:00 00:00:00 Aneatrice [place] [id number] ity of [facility] 4.2.7.2.686 [place]avier as [phone] [facility] 019 Branch 2021-03-16 2021-03-16 Emergency Palmer [facility] 1.2.840.114 [id number] Univers 20:08:00 23:24:00 Fabrice Har[place] 350.1.13.10 i ty [place] [id number] [facility] 084 Branch 2021-03-14 2021-03-14 Urgent Lydia Desouza [facility] 1.2.840.114 [id number] Univers 18:59:34 20:19:13 Care Unknown, Attending [facility] [id number] ity [facility] 4.2.7.2.686 Javier as Prem?Blea [id number] Ma dical [address] Medical Office [facility] 2021-03-14 2021-03-14 Outpatient R [facility] [id number] Univers 19:00:00 19:00:[id number] [facility] 2021-03-14 2021-03-14 Outpatient R UNKNOWN, [facility] [id number] Univers 19:00:00 19:00:[address] [facility] 2021-02-19 2021-02-19 Emergency Patel, [facility] [id number] Univers 10:49:00 14:48:00 Anali [place] 350.1.13.10 i ty [place] [id number] [address] 2019-03-09 2019-03-09 [facility]imberley [facility] 1.2.840.114 [id number] 00:00:00 00:00:00 Yehuda Har[place] 350.1.13.10 [place] 4.2.7.2.686 Professio [id number] [address] 2019-03-09 2019-03-09 Dick [facility] 1.2.840.114 [id number] Univers 00:00:00 00:00:00 Yehuda Harrell 350.1.13.10 ity [facility] [place] [id number] [address] Results Test Description Test Time Test Comments Results Result Comments Source URINALYSIS 2021-03-17 03:22:48 Test Item Value Reference Range Interpretation Comme nts APPEARANCE (test code = Hazy Clear A 3490077691) COLOR (test code = 4451644359) Yellow Yellow PH (test code = 7388269561) 4.8-8.0 SP GRAVITY (test code = 1.003-1.030 0472721063) GLU U QUAL (test code = Normal Normal 8833635335) BLOOD (test code = 8961116469) Negative Negative Interference from ascorbic acid may cause false negative results. KETONES (test code = 2828284232) 5 mg/dL Negative A PROTEIN (test code = 2887-8) Negative Negative UROBILIN (test code = 4.0 mg/dL Normal A 5624221262) BILIRUBIN (test code = Negative Negative 4674051262) NITRITE (test code = 8600085722) Negative Negative [place] (test code = Negative Negative 7327595339) RBC/HPF (test code = 7836528966) See_Comment [Automated message] The system which ge nerated this result transmit sherice reference range: 0 - 3 HP F. The reference range was not used to interpret th is result as normal/abnormal . WBC/HPF (test code = 3639870103) <1 See_Comment [Automated message] The system which ge nerated this result transmit sherice reference range: 0 - 5 HP F. The reference range was not used to interpret th is result as normal/abnormal . BACTERIA (test code = Few Negative A 2483249304) SQ EPITH (test code = HPF 7828029324) Lab Interpretation (test code = Abnormal 90362-3) [facility] 03:22:48 Test Item Value Reference Range Interpretation Comments APPEARANCE (test code = Hazy Clear A 3315582452) COLOR (test code = Yellow Yellow 4891359995) PH (test code = 4.8-8.0 1495303139) SP GRAVITY (test code = 1.003-1.030 [id number]) GLU U QUAL (test code = Normal Normal 2389279793) BLOOD (test code = Negative Negative 3473257409) KETONES (test code = 5 mg/dL Negative A 3217683802) PROTEIN (test code = Negative Negative 2887-8) UROBILIN (test code = 4.0 mg/dL Normal A 0779961879) BILIRUBIN (test code = Negative Negative 7313005180) NITRITE (test code = Negative Negative 2135683016) LEUK GRUPO (test code = Negative Negative 0311228495) RBC/HPF (test code = See_Comment [Autom ated message] 0725605116) The system Choisr generated this result transmit sherice reference range : 0 - 3 HPF. The refe rence range was not u sed to interpret th is result as normal/abnormal . WBC/HPF (test code = <1 See_Comment [Autom ated message] 3688443293) The system Choisr generated this result transmit sherice reference range : 0 - 5 HPF. The refe rence range was not u sed to interpret th is result as normal/abnormal . BACTERIA (test code = Few Negative A 5563670519) SQ EPITH (test code = HPF 0516043547) Lab Interpretation (test Abnormal code = 53634-1) [facility] [id number] 02:45:00 Test Item Value Reference Interpretation Comments Range TROPONIN I (test 0.002 ng/mL See_Comment [Automated code = 9858453630) message] The system which generated this result [...] biotin. Lab Interpretation Normal (test code = 74409-0) [facility] [id number] 02:45:00 Test Item Value Reference Range Interpretation Comments TROPONIN I (test code = 0.002 ng/mL See_Comment [Au tomated 0304165866) message] The sy stem which generated this result transmitted reference range : <=0.034. The reference range was not used to interpret this result as normal/abnormal . LYNDSAY (test code = LYNDSAY) Lab Interpretation Normal (test code = 24731-3) [id number] 02:41:57 Test Item Value Reference Range Interpretation Comments NT-proBNP (test code 169 pg/mL See_Comment H [Autom ated = 3467461886) message] The system which generated this result transmitted reference range : <=125. The reference range was not used to interpret this result as normal/abnormal . LYNDSAY (test code = LYNDSAY) Biotin has been reported to cause a negative bias, interpret results relative to patient's use of biotin. Lab Interpretation Abnormal (test code = 48278-6) [facility] [id number] 02:41:57 Test Item Value Reference Range Interpretation Comments NT-proBNP (test code = 169 pg/mL See_Comment H [Aut omated message] 4830655929) The system Choisr generated this result transmit sherice reference range : <=125. The refe rence range was not u sed to interpret th is result as normal/abnormal . LYNDSAY (test code = LYNDSAY) Lab Interpretation (test Abnormal code = 19368-1) [facility]. METABOLIC PANEL (43010)2021-03-17 02:09:13 Test Item Value Reference Range Interpretation Comments NA (test code = 137 mmol/L 135-145 6579113907) K (test code = 4.2 mmol/L 3.5-5.0 4012021307) CL (test code = 102 mmol/L 98-108 4705174690) CO2 TOTAL (test code = 25 mmol/L 23-31 0457667559) AGAP (test code = 2-16 6393110435) BUN (test code = 18 mg/dL 7-23 6601389530) GLUCOSE (test code = 144 mg/dL 70-110 H 8202201595) CREATININE (test code = 0.77 mg/dL 0.50-1.04 6062366989) TOTAL BILI (test code = 0.4 mg/dL 0.1-1.7 0490382823) CALCIUM (test code = 8.9 mg/dL 8.6-10.6 2898885932) T PROTEIN (test code = 6.8 g/dL 6.3-8.2 8695996024) ALBUMIN (test code = 3.9 g/dL 3.5-5.0 9688794622) ALK PHOS (test code = 84 U/L 34-122 7521394231) ALTv (test code = 13 U/L 35 1742-6) AST(SGOT) (test code = 17 U/L 13-40 4407807721) eGFR (test code = mL/min/1.73m2 6239506965) LYNDSAY (test code = LYNDSAY) Association of [...] tests). Lab Interpretation Abnormal (test code = 68431-5) [facility]. METABOLIC PANEL (62503)2021-03-17 02:09:13 Test Item Value Reference Range Interpretation Comments NA (test code = 6952475394) 137 mmol/L 135-145 K (test code = 2992293459) 4.2 mmol/L 3.5-5.0 CL (test code = 4340441168) 102 mmol/L 98-108 CO2 TOTAL (test code = 9182932070) 25 mmol/L 23-31 AGAP (test code = 7653330721) 2-16 BUN (test code = 8514672179) 18 mg/dL 7-23 GLUCOSE (test code = 0203277981) 144 mg/dL 70-110 H CREATININE (test code = 0.77 mg/dL 0.50-1.04 6903823153) TOTAL BILI (test code = 0.4 mg/dL 0.1-1.7 7312498706) CALCIUM (test code = 1247565517) 8.9 mg/dL 8.6-10.6 T PROTEIN (test code = 5347285633) 6.8 g/dL 6.3-8.2 ALBUMIN (test code = 6957339466) 3.9 g/dL 3.5-5.0 ALK PHOS (test code = 5791150220) 84 U/L 34-122 ALTv (test code = 1742-6) 13 U/L 5-35 AST(SGOT) (test code = 2752923067) 17 U/L 13-40 eGFR (test code = 4543265665) mL/min/1.73m2 LYNDSAY (test code = LYNDSAY) Lab Interpretation (test code = Abnormal 22654-4) [facility] WITH [id number] 01:56:33 Test Item Value Reference Range Interpretation Comments WBC (test code = See_Comment H [Automated 6790-2) message] The sy stem which generated this result transmitted reference range : 4.30 - 11.10 10*3/?L. The reference range was not used to interpret this result as normal/abnormal . RBC (test code = See_Comment [Automated 859-8) message] The sy stem which generated this [...] (test code = 55.5 fL 39.0-49.9 H 99697-5) RDW-CV (test code = 18.9 % 12.0-15.5 H 788-0) PLT (test code = See_Comment H [Automated 777-3) message] The sy stem which generated this result transmitted reference range : 166 - 358 10*3/ ?L. The reference r zoe was not used to interpret this result as normal/abnormal . MPV (test code = 8.2 fL 9.5-12.9 L 63613-7) NRBC/100 WBC (test See_Comment [Automat ed code = 2762664054) message] The system which generated this result transmitted reference range : 0.0 - 10.0 /100 WBCs. The refer ence range was not u sed to interpret th is result as normal/abnormal . NRBC x10^3 (test code <0.01 See_Comment [Auto mated = 7918313739) message] The s ystem which generated this result transmitted reference range : 10*3/?L. The reference range was not used to interpret this result as normal/abnormal . GRAN MAT (NEUT) % 61.7 % (test code = 770-8) IMM GRAN % (test code 0.80 % = 9747810168) LYMPH % (test code = 28.5 % 736-9) MONO % (test code = 6.3 % 5905-5) EOS % (test code = 1.8 % 713-8) BASO % (test code = 0.9 % 706-2) GRAN MAT x10^3(ANC) 7.31 10*3/uL 1.88-7.09 H (test code = 0234156203) IMM GRAN x10^3 (test 0.09 10*3/uL 0.00-0.06 H code = 5775797638) LYMPH x10^3 (test code 3.38 10*3/uL 1.32-3.29 H = 731-0) MONO x10^3 (test code 0.75 10*3/uL 0.33-0.92 = 742-7) EOS x10^3 (test code = 0.21 10*3/uL 0.03-0.39 711-2) BASO x10^3 (test code 0.11 10*3/uL 0.01-0.07 H = 704-7) Lab Interpretation Abnormal (test code = 10867-8) [facility] WITH [id number] 01:56:33 Test Item Value Reference Range Interpretation [...] (test code = 55.5 fL 39.0-49.9 H 35406-0) RDW-CV (test code = 18.9 % 12.0-15.5 H 788-0) PLT (test code = See_Comment H [Automated 777-3) message] The sy stem which generated this result transmitted reference range : 166 - 358 10*3/ ?L. The reference r zoe was not used to interpret this result as normal/abnormal . MPV (test code = 8.2 fL 9.5-12.9 L 54650-4) NRBC/100 WBC (test See_Comment [Automat ed code = 6385792672) message] The system which generated this result transmitted reference range : 0.0 - 10.0 /100 WBCs. The refer ence range was not u sed to interpret th is result as normal/abnormal . NRBC x10^3 (test code <0.01 See_Comment [Auto mated = 4910033724) message] The s Amarutem which generated this result transmitted reference range : 10*3/?L. The reference range was not used to interpret this result as normal/abnormal . GRAN MAT (NEUT) % 61.7 % (test code = 770-8) IMM GRAN % (test code 0.80 % = 6080023073) LYMPH % (test code = 28.5 % 736-9) MONO % (test code = 6.3 % 5905-5) EOS % (test code = 1.8 % 713-8) BASO % (test code = 0.9 % 706-2) GRAN MAT x10^3(ANC) 7.31 10*3/uL 1.88-7.09 H (test code = 5972339894) IMM GRAN x10^3 (test 0.09 10*3/uL 0.00-0.06 H code = 7391929100) LYMPH x10^3 (test code 3.38 10*3/uL 1.32-3.29 H = 731-0) MONO x10^3 (test code 0.75 10*3/uL 0.33-0.92 = 742-7) EOS x10^3 (test code = 0.21 10*3/uL 0.03-0.39 711-2) BASO x10^3 (test code 0.11 10*3/uL 0.01-0.07 H = 704-7) Lab Interpretation Abnormal (test code = 66220-6) [facility] NOW RAPID TESTING)2021-03-17 01:38:12 Test Item Value Reference Range Interpretation Comments SARS-CoV-2 Rapid ID NOW Not Detected Not Detected (test code = 90399-5) LYNDSAY (test code = LYNDSAY) ID NOW COVID-19 Assay is an isothermal nucleic acid amplification test intended for the qualitative detection of nucleic acid from SARS-CoV-2 viral RNA in nasopharyngeal (TERRITORY SALES MANAGER) specimens. It is used under Emergency Use [...] indicated. Lab Interpretation Normal (test code = 70378-5) [facility] NOW RAPID TESTING)2021-03-17 01:38:12 Test Item Value Reference Range Interpretation Comments SARS-CoV-2 Rapid ID NOW (test Not Detected Not Detected code = 35320-5) LYNDSAY (test code = LYNDSAY) Lab Interpretation (test code = Normal 67810-5) [facility]19 17:42:45 Test Item Value Reference Range Interpretation Comments SARS-CoV-2 Rapid ID NOW Not Detected Not Detected (test code = 84878-2) LYNDSAY (test code = LYNDSAY) ID NOW COVID-19 Assay is an isothermal nucleic acid amplification test intended for the qualitative detection of nucleic acid from SARS-CoV-2 viral RNA in nasopharyngeal (TERRITORY SALES MANAGER) specimens. It is used under Emergency Use [...] indicated. Lab Interpretation Normal (test code = 71030-6) [facility] ABDOMEN PELVIS W [id number] 17:24:55Thickening of the gastric antrum and duodenal bulb could be fromunderdistention, the differential would include sequela of peptic ulcerdisease. No findings of ulcer perforation. Otherwise, no acute intra- abdominal or pelvic abnormality. Stable thickening and nodularity of the left adrenal gland. RL: 0221 Patient name: EUSEBIA ONTIVEROSB: 1970 51 years [...] adrenal gland.RL: [id number] [facility]st[facility]inalysis2021-08-03 17:03:40 Test Item Value Reference Range Interpretation Comments APPEARANCE (test code = Hazy Clear A 6256645589) COLOR (test code = Mabel Yellow A 8706029168) PH (test code = 4.8-8.0 8740863451) SP GRAVITY (test code = 1.003-1.030 H 5187485707) GLU U QUAL (test code = Normal Normal 6544601230) BLOOD (test code = Negative Negative 5438482471) KETONES (test code = 5 mg/dL Negative A 0441797243) PROTEIN (test code = 30 mg/dL Negative A 2887-8) UROBILIN (test code = 4.0 mg/dL Normal A 7468126616) BILIRUBIN (test code = 4 mg/dL Negative A 0062585928) NITRITE (test code = Negative Negative 1578983399) LEUK GRUPO (test code = Negative Negative 6686077082) RBC/HPF (test code = See_Comment H [Autom ated message] 7386479165) The system Choisr generated this result transmit sherice reference range : 0 - 3 HPF. The refe rence range was not u sed to interpret th is result as normal/abnormal . WBC/HPF (test code = See_Comment H [Autom ated message] 3477046121) The system Choisr generated this result transmit sherice reference range : 0 - 5 HPF. The refe rence range was not u sed to interpret th is result as normal/abnormal . BACTERIA (test code = Few Negative A 7789829939) MUCOUS (test code = Moderate Negative LPF A 0927200713) SQ EPITH (test code = HPF 4336631251) CA OXALATE (test code = See_Comment H [Au tomated message] 3783297546) The system Choisr generated this result transmit sherice reference range : <=1 HPF. The refere nce range was not u sed to interpret th is result as normal/abnormal . Ictotest (test code = Negative 0103030395) Lab Interpretation (test Abnormal code = 48958-8) [facility]stComplete Metabolic [id number] 16:34:55 Test Item Value Reference Range Interpretation Comments NA (test code = 139 mmol/L 135-145 5537835791) K (test code = 4.3 mmol/L 3.5-5.0 1992152281) CL (test code = 105 mmol/L 98-108 6658128372) CO2 TOTAL (test code 26 mmol/L 23-31 = 0180570838) AGAP (test code = 2-16 1186547447) BUN (test code = 11 mg/dL 7-23 7876925325) GLUCOSE (test code = 95 mg/dL 70-110 2594310910) CREATININE (test code 0.70 mg/dL 0.50-1.04 = 5058559661) TOTAL BILI (test code 0.6 mg/dL 0.1-1.1 = 6796545058) CALCIUM (test code = 8.9 mg/dL 8.6-10.6 8956466930) T PROTEIN (test code 7.7 g/dL 6.3-8.2 = 3627746353) ALBUMIN (test code = 4.1 g/dL 3.5-5.0 3080617960) ALK PHOS (test code = 79 U/L 34-122 2297456346) ALTv (test code = 10 U/L 5-35 1742-6) AST(SGOT) (test code 22 U/L 13-40 = 8929090937) eGFR (test code = mL/min/1.73m2 1360433481) LYNDSAY (test code = LYNDSAY) Association of [...] in imaging tests). [facility]stLip[facility], [id number] 16:34:14 Test Item Value Reference Range Interpretation Comments LIPASE (test code = 3357475738) 45 U/L 0-220 Lab Interpretation (test code = Normal 67593-6) [facility]stCB with [id number] 16:21:12 Test Item Value Reference Range Interpretation Comments WBC (test code = See_Comment [Automated 0990-2) message] The sy stem which generated this [...] (test code = 54.4 fL 39.0-49.9 H 02239-9) RDW-CV (test code = 18.3 % 12.0-15.5 H 788-0) PLT (test code = See_Comment H [Automated 777-3) message] The sy stem which generated this result transmitted reference range : 166 - 358 10*3/ ?L. The reference r zoe was not used to interpret this result as normal/abnormal . MPV (test code = 8.5 fL 9.5-12.9 L 45414-3) NRBC/100 WBC (test See_Comment [Automat ed code = 1383547908) message] The system which generated this result transmitted reference range : 0.0 - 10.0 /100 WBCs. The refer ence range was not u sed to interpret th is result as normal/abnormal . NRBC x10^3 (test code <0.01 See_Comment [Auto mated = 4086766957) message] The s ystem which generated this result transmitted reference range : 10*3/?L. The reference range was not used to interpret this result as normal/abnormal . GRAN MAT (NEUT) % 78.3 % (test code = 770-8) IMM GRAN % (test code 0.40 % = 0505898386) LYMPH % (test code = 15.4 % 736-9) MONO % (test code = 4.8 % 5905-5) EOS % (test code = 0.1 % 713-8) BASO % (test code = 1.0 % 706-2) GRAN MAT x10^3(ANC) 7.15 10*3/uL 1.88-7.09 H (test code = 0490310638) IMM GRAN x10^3 (test 0.04 10*3/uL 0.00-0.06 code = 1860508565) LYMPH x10^3 (test code 1.41 10*3/uL 1.32-3.29 = 731-0) MONO x10^3 (test code 0.44 10*3/uL 0.33-0.92 = 742-7) EOS x10^3 (test code = <0.03 0.03-0.39 L 711-2) BASO x10^3 (test code 0.09 10*3/uL 0.01-0.07 H = 704-7) Lab Interpretation Abnormal (test code = 61303-0) [facility]"
--- NOTE | 2021-10-20 16:24 | RAD REPORT ---
EXAM DESCRIPTION: CT - Head Brain Wo Cont - 10/20/2021 4:16 pm CLINICAL HISTORY: HEADACHE Headache, drowsiness COMPARISON: Facial Bones W/ Mpr dated 08/28/2021; Head Brain Wo Cont dated 01/15/2021 TECHNIQUE: All CT scans are performed using dose optimization technique as appropriate and may inclu de automated exposure control or mA/KV adjustment according to patient size. FINDINGS: No intracranial hemorrhage, hydrocephalus or extra-axial fluid collection.No areas of brai n edema or evidence of midline shift. The paranasal sinuses and mastoids are essentially clear. The calvarium is intact. IMPRESSION: No acute intracranial abnormality.
[2021-10-20] MEDS ORDERED: LORazepam 2 MG/ML VIAL ONE (17:08)
[2021-10-20] MEDS ORDERED: NA CHLORIDE 0.9% 1,000 ML ONE (17:09)
[2021-10-20] MEDS ORDERED: ONDANSETRON 4 MG/2 ML VIAL ONE (17:09)
[2021-10-20] MEDS ORDERED: MORPHINE 4 MG/ML SYR ONE (17:09)
[2021-10-20 17:32] LABS: Potassium 3.6 mmol/L (3.5-5.1)
--- NOTE | 2021-10-20 18:28 | ER ---
Nurse's Notes [facility] Name: Heather Coon Age: 51 yrs Sex: Female : 1970 Arrival Date: 10/20/2021 Time: 15:56 Bed 2 Private MD: Diagnosis: Headache;Epileptic seizures related to external causes, not intractable Presentation: 10/20 15:56 Chief complaint: EMS states: RIOS WITH SZ AT HOME. Coronavirus screen: At this time, the bp client does not indicate any symptoms associated with coronavirus-19. Ebola Screen: No symptoms or risks identified at this time. Initial Sepsis Screen: Does the patient meet any 2 criteria? No. Patient's initial sepsis screen is negative. Does the patient have a suspected source of infection? No. Patient's initial sepsis screen is negative. Risk Assessment: Do you want to hurt yourself or someone else? Patient reports no desire to harm self or others. Onset of symptoms is unknown. 15:56 [facility] Acuity: ANDER 3 bp Triage Assessment: 15:57 Headache History: The patient has had previous headaches and this one is similar to previous episodes. General: Appears distressed, uncomfortable, obese, Behavior is cooperative, appropriate for age, anxious. Pain: Complains of pain in head Pain currently is 8 out of 10 on a pain scale. Pain began suddenly, Also complains of nausea. EENT: No deficits noted. Neuro: Level of Consciousness is awake, alert, obeys commands, Oriented to Appropriate for age. Cardiovascular: No deficits noted. Respiratory: No deficits noted. GI: No signs and/or symptoms were reported involving the gastrointestinal system. : No signs and/or symptoms were reported regarding the genitourinary system. Derm: No deficits noted. Musculoskeletal: No deficits noted. Historical: - Allergies: 15:57 Green Tea; bp 15:57 Prozac; bp - Home Meds: 15:57 Lexapro Oral [Active]; levetiracetam Oral [Active]; bp - PMHx: 15:57 Anxiety; Bipolar disorder; Cancer-Cervical; Chronic pain; Depression; Diverticulitis; bp Herniated Back Disc; Hypertension; intestinal mass; Myocardial infarction; pt reports hx of seizures; Spastic Muscles; stroke; - PSHx: 15:57 cervical fusion; Cholecystectomy; bp - Immunization history:: Adult Immunizations up to date. - Social history:: Smoking status: unknown. - Family history:: not pertinent. - Hospitalizations: : No recent hospitalization is reported. Screenin:59 Abuse screen: Denies threats or abuse. Denies injuries from another. Nutritional bp screening: No deficits noted. Tuberculosis screening: No symptoms or risk factors identified. Fall Risk No fall in past 12 months (0 pts). Secondary diagnosis (15 points) seizures, No IV (0 pts). Ambulatory Aid- None/Bed Rest/Nurse Assist (0 pts). Gait- Normal/Bed Rest/Wheelchair (0 pts) Mental Status- Oriented to own ability (0 pts). Total Costello Fall Scale indicates No Risk (0-24 pts). Assessment: 15:59 General: SEE TRIAGE NOTE. bp 17:58 Reassessment: No changes from previously documented assessment. Patient and/or family bp updated on plan of care and expected duration. Pain level reassessed. 18:48 Reassessment: PT D/C HOME VIA W/C WITH FAMILY, DX WITH SEIZURE. bp Vital Signs: 15:56 BP 170 / 90; Pulse 97; Resp 20; Temp 98; Pulse Ox 100% ; bp 15:57 BP 155 / 86; Pulse 107; Resp 18; Pulse Ox 98% ; bp 17:58 BP 150 / 101; Pulse 97; Resp 20; Pulse Ox 97% ; bp 18:48 BP 152 / 94; Pulse 100; Resp 22; Pulse Ox 98% ; bp ED Course: 15:56 Patient arrived in ED. bp 15:57 Jones Parham MD is Attending Physician. rn 15:57 Triage completed. bp 15:57 Arm band placed on. bp 15:59 Patient has correct armband on for positive identification. Bed in low position. Call bp light in reach. Side rails up X2. 16:11 Torrey Whittington, BETH is Primary Nurse. bp 16:18 CT Head Brain wo Cont In Process Unspecified. EDMS 16:30 Inserted saline lock: 20 gauge in left forearm, using aseptic technique. Blood bp collected. 16:38 Warm blanket given. jw7 16:39 EKG done, by ED staff, reviewed by Jones Parham MD. jw7 18:48 No provider procedures requiring assistance completed. IV discontinued, intact, bp bleeding controlled, No redness/swelling at site. Pressure dressing applied. Administered Medications: 16:07 CANCELLED (Duplicate Order): Reglan (metoCLOPramide) 10 mg IVP once; over 1 to 2 minutesrn 17:15 Drug: NS 0.9% 1000 ml Route: IV; Rate: 1000 ml; Site: left forearm; bp 18:13 Follow up: IV Status: Completed infusion; IV Intake: 1000ml bp 17:15 Drug: morphine 4 mg Route: IVP; Site: left forearm; bp 18:12 Follow up: Response: Pain is decreased bp 17:15 Drug: Zofran (Ondansetron) 4 mg Route: IVP; Site: left forearm; bp 18:12 Follow up: Response: No adverse reaction bp 17:15 Drug: Ativan (LORazepam) 1 mg Route: IVP; Site: left forearm; bp 18:12 Follow up: Response: No adverse reaction bp 18:15 Drug: Demerol (meperidine) 25 mg Route: IVP; Site: left forearm; bp 18:47 Follow up: Response: No adverse reaction bp 18:15 Drug: Keppra (levETIRAcetam) 500 mg Route: PO; bp 18:47 Follow up: Response: No adverse reaction bp Intake: 18:13 IV: 1000ml; Total: 1000ml. bp Outcome: 18:27 Discharge ordered by . rn 18:48 Discharged to home via wheelchair, with family. bp 18:48 Condition: stable 18:48 Discharge instructions given to patient, family, Instructed on discharge instructions, follow up and referral plans. Demonstrated understanding of instructions, follow-up care. 18:49 Patient left the ED. bp Signatures: Dispatcher [employer] EDJones Mane MD MD rn Peltier, Brian, RN RN Waits, Fauzia jw7
--- NOTE | 2021-10-20 18:28 | EDPHYS ---
Physician Documentation [facility] Name: Heather Coon Age: 51 yrs Sex: Female : 1970 Arrival Date: 10/20/2021 Time: 15:56 Bed 2 Private MD: ED Physician Jones Parham HPI: 10/20 17:34 This 51 yrs old Female presents to ER via EMS with complaints of Headache, seizure. rn 17:36 The patient presents after having a single isolated seizure. Character of seizure(s): rn Motor activity: generalized, Incontinence: none, Circulation: the patient did not experience evidence of pulse disturbance, Eye movements: are unknown. Seizure onset: today. Associated injury: The patient did not suffer any apparent associated injury. Current symptoms: headache. The patient has experienced similar episodes in the past. The patient has not recently seen a physician. Pt reports had seizure today, has known seizure disorder, states has seizures weekly, comes in with headache. States usually has headaches after seizures, no focal neuro complaints, reports nausea that she usually has with pain. No focal abd pain. No diarrhea. NO fever. No neck stiffness. . Historical: - Allergies: 15:57 Green Tea; bp 15:57 Prozac; bp - Home Meds: 15:57 Lexapro Oral [Active]; levetiracetam Oral [Active]; bp - PMHx: 15:57 Anxiety; Bipolar disorder; Cancer-Cervical; Chronic pain; Depression; Diverticulitis; bp Herniated Back Disc; Hypertension; intestinal mass; Myocardial infarction; pt reports hx of seizures; Spastic Muscles; stroke; - PSHx: 15:57 cervical fusion; Cholecystectomy; bp - Immunization history:: Adult Immunizations up to date. - Social history:: Smoking status: unknown. - Family history:: not pertinent. - Hospitalizations: : No recent hospitalization is reported. ROS: 17:36 Constitutional: Negative for fever, chills, and weight loss, Eyes: Negative for injury, rn pain, redness, and discharge, Neck: Negative for injury, pain, and swelling, Cardiovascular: Negative for chest pain, palpitations, and edema, Respiratory: Negative for shortness of breath, cough, wheezing, and pleuritic chest pain, Abdomen/GI: Negative for abdominal pain, diarrhea, and constipation, Back: Negative for injury and pain, : Negative for injury, bleeding, discharge, and swelling, MS/Extremity: Negative for injury and deformity, Skin: Negative for injury, rash, and discoloration, Neuro: Negative for weakness, numbness, tingling Exam: 17:23 ECG was reviewed by the Attending Physician. rn 17:36 Constitutional: This is a well developed, well nourished patient who is awake, alert, rn and in no acute distress. Head/Face: Normocephalic, atraumatic. Eyes: Periorbital areas with no swelling, redness, or edema. Neck: Trachea midline, no masses palpated, and no cervical lymphadenopathy. Supple, full range of motion without nuchal rigidity, or vertebral point tenderness. No Meningismus. Cardiovascular: Tachycardic, regular. No pulse deficits. Respiratory: No increased work of breathing, no retractions or nasal flaring. Abdomen/GI: soft, non-tender Skin: Warm, dry MS/ Extremity: Pulses equal, no cyanosis. Neuro: Awake and alert, GCS 15, oriented to person, place, time, and situation. Cranial nerves II-XII grossly intact. Motor strength 5/5 in all extremities. Sensory grossly intact Vital Signs: 15:56 BP 170 / 90; Pulse 97; Resp 20; Temp 98; Pulse Ox 100% ; bp 15:57 BP 155 / 86; Pulse 107; Resp 18; Pulse Ox 98% ; bp 17:58 BP 150 / 101; Pulse 97; Resp 20; Pulse Ox 97% ; bp 18:48 BP 152 / 94; Pulse 100; Resp 22; Pulse Ox 98% ; bp MDM: 15:57 Patient medically screened. rn 18:25 Differential diagnosis: seizure, headache. Data reviewed: vital signs, nurses notes, [employer] compliance internship test result(s), radiologic studies, CT scan, and as a result, I will discharge patient. Counseling: I had a detailed discussion with the patient and/or guardian regarding: the historical points, exam findings, and any diagnostic results supporting the discharge/admit diagnosis, lab results, radiology results, the need for outpatient follow up, to return to the emergency department if symptoms worsen or persist or if there are any questions or concerns that arise at home. Response to treatment: the patient's symptoms have markedly improved after treatment, and as a result, I will discharge patient. Special discussion: I discussed with the patient/guardian in detail that at this point there is no indication for admission to the hospital. It is understood, however, that if the symptoms persist or worsen the patient needs to return immediately for re-evaluation. 10/20 16:06 Order name: Basic Metabolic Panel; Complete Time: 17:53 rn 10/20 16:06 Order name: CT Head Brain wo Cont; Complete Time: 16:49 rn 10/20 16:06 Order name: IV Start; Complete Time: 17:19 rn 10/20 16:06 Order name: EKG; Complete Time: 16:07 rn 10/20 16:06 Order name: EKG - Nurse/Tech; Complete Time: 17:19 rn 10/20 16:07 Order name: Cardiac monitoring; Complete Time: 17:21 rn EC:23 Rate is 107 beats/min. Rhythm is regular. QRS [place] is Normal. QRS is positive in leads rn I, aVF. MS interval is normal. QRS interval is normal. QT interval is normal. No Q waves. T waves are Normal. No ST changes noted. Clinical impression: Sinus tachycardia. Interpreted by me. Reviewed by me. Administered Medications: 16:07 CANCELLED (Duplicate Order): Reglan (metoCLOPramide) 10 mg IVP once; over 1 to 2 minutesrn 17:15 Drug: NS 0.9% 1000 ml Route: IV; Rate: 1000 ml; Site: left forearm; bp 18:13 Follow up: IV Status: Completed infusion; IV Intake: 1000ml bp 17:15 Drug: morphine 4 mg Route: IVP; Site: left forearm; bp 18:12 Follow up: Response: Pain is decreased bp 17:15 Drug: Zofran (Ondansetron) 4 mg Route: IVP; Site: left forearm; bp 18:12 Follow up: Response: No adverse reaction bp 17:15 Drug: Ativan (LORazepam) 1 mg Route: IVP; Site: left forearm; bp 18:12 Follow up: Response: No adverse reaction bp 18:15 Drug: Demerol (meperidine) 25 mg Route: IVP; Site: left forearm; bp 18:47 Follow up: Response: No adverse reaction bp 18:15 Drug: Keppra (levETIRAcetam) 500 mg Route: PO; bp 18:47 Follow up: Response: No adverse reaction bp Disposition Summary: 10/20/21 18:27 Discharge Ordered Location: Home rn Problem: new rn Symptoms: have improved rn Condition: Stable rn Diagnosis - Headache rn - Epileptic seizures related to external causes, not intractable rn Followup: rn - With: Private Physician - When: As needed - Reason: Recheck today's complaints, Re-evaluation by your physician Discharge Instructions: - Discharge Summary Sheet rn - General Headache Without Cause rn - Migraine Headache rn - Seizure, Adult rn Forms: - Medication Reconciliation Form rn - Thank You Letter rn - Antibiotic title attorney - Prescription Opioid Use rn Signatures: Dispatcher [employer] Jones Larose MD MD rn Peltier, Brian, RN RN bp Corrections: (The following items were deleted from the chart) 16:07 16:06 Reglan (metoCLOPramide) 10 mg IVP once; over 1 to 2 minutes ordered. rn rn
[2021-10-20] MEDS ORDERED: MEPERIDINE HCL 25 MG/ML SYR ONE (18:32)
[2021-10-20] MEDS ORDERED: levETIRAcetam 500 MG TAB ONE (18:33)
[2021-10-20 20:13] VITALS: TEMP 98
[2021-10-20 20:17] VITALS: BP 152/94; O2SAT 98
[2021-10-21] MEDS ORDERED: LORazepam 2 MG/ML VIAL ONE (11:02)
--- NOTE | 2021-10-21 11:14 | EKG ---
Test Date: 2021-10-20 Test Time: 16:32:29 Neck Fitter: LYNDA MEASUREMENT RESULTS: Intervals: Rate: 107 AR: 126 QRSD: 86 QT: 348 QTc: 464 [place]: P: 64 AR: 126 QRS: 106 T: 51 INTERPRETIVE STATEMENTS: Sinus tachycardia Rightward axis Borderline ECG Compared to ECG 09/25/2021 20:34:38 Sinus rhythm no longer present Electronically Signed On 10-21-21 11:12:12 CDT by Migel Warren
== END 2021-10-20 18:49 | disposition home or self-care (01) ==
LOC: ER 15:52
DX: G40.509 Epileptic seizures related to external causes, not intractable, without status epilepticus (principal); R51.9 Headache, unspecified
CPT/HCPCS: 36415; 70450; 80048; 93005; 96361; 96374; 96375; 99284; J2175; J2405; J7030

== ENCOUNTER 2021-10-21 10:57 | Inpatient (IN) | payer SELFPAY ==
--- OUTSIDE RECORDS SUMMARY | 2021-10-21 11:03 | XMS REPORT | Continuity of Care Document ---
:1970 Author Organization [facility] t Address [address] [place] [address] Care Team Providers Name Role Phone PCP, DOES NOT HAVE A Primary Care Physician Unavailable OTONIEL Attending Clinician Unavailable Carlito Grahami Attending Clinician Unavailable Otoniel ELIZONDO Attending Clinician Doctor Unassigned, Name Attending Clinician Unavailable Brandy CAMPOS Attending Clinician Unavailable Palmer BRONSONP Attending Clinician Deo DIRECTOR OF PEDIATRIC REHABILITATION Attending Clinician Unknown Attending Clinician Unavailable UNKNOWN [...] tobacco Cigar Smoker Univ ersity of use [facility] Exposure to Not sure [place] of SARS-CoV-2 (event) [facility] Alcohol intake 2021-03-21 2021-03-21 0 /d University of 00:00:00 00:00:00 [facility] Cigarettes smoked 2021-03-14 2021-03-14 Univers ity of current (pack per 00:00:00 00:00:00 ) - Reported Branch Cigarette 2021-03-14 2021-03-14 University of pack-years 00:00:00 00:00:00 [facility] Tobacco use and 2021-03-14 2021-03-14 Never used Universit y of exposure 00:00:00 00:00:00 [facility] Sex [birth year] At [birth year] Universit y of 00:00:00 00:00:00 [facility] Smoking Status Start Date Stop Date Source Current every day smoker 2021-03-14 00:00:00 Uni versity of [facility] Medications Ordered Filled Start Stop Current [...] ason for Anti-Infec tive: Documented Infection< br>Documen hserice Infection Site: Respirator y
Durat ion of [...] 00 :00 dose, Sat Medical 03/16/21 at [place] 2100, STAT ondansetron 2020- No 4mg 4 [...] Slow IV ity of succ 01:57: 02:11 [place], [place] (SOLU-MEDRO 00 :00 ONCE, 1 Medic [...] Slow IV ity of succ 01:57: 02:11 [place], [place] (SOLU-MEDRO 00 :00 ONCE, 1 Medic [...] nebulizer solution 3 mL levoFLOXaci 2020- No [id number] 500mg Take 1 Univers n 500 mg 03-17 tablet by ity o f tablet 00:00: 04:59 mouth [place] 00 :00 daily for Medical 6 days. [place] levoFLOXaci 2020- No [id number] 500mg Take 1 Univers n 500 mg 03-17 tablet by ity o f tablet 00:00: 04:59 mouth [place] 00 :00 daily for Medical 6 days. [place] levoFLOXaci 2020- No [id number] 500mg Take 1 Univers n 500 mg 03-17 tablet by ity o f tablet 00:00: 04:59 mouth [place] 00 :00 daily for Medical 6 days. [place] levoFLOXaci 2020- No [id number] 500mg Take 1 Univers n 500 mg 03-17 tablet by ity o f tablet 00:00: 04:59 mouth [place] 00 :00 daily for Medical 6 days. [place] predniSONE 2020- No [id number] 30mg Take 3 Univers 10 mg 03-17 tablets by ity of tablet 00:00: 04:59 mouth [place] 00 :00 daily for Medical 4 days. Branch predniSONE 2020- No [id number] 30mg Take 3 Univers 10 mg 03-17 tablets by ity of tablet 00:00: 04:59 mouth [place] 00 :00 daily for Medical 4 days. Branch predniSONE 2020- No [id number] 30mg Take 3 Univers 10 mg 03-17 tablets by ity of tablet 00:00: 04:59 mouth [place] 00 :00 daily for Medical 4 days. Branch predniSONE 2020- No [id number] 30mg Take 3 Univers 10 mg 03-17 tablets by ity of tablet 00:00: 04:59 mouth [place] 00 :00 daily for Medical 4 days. [place] albuterol 2020- No [id number] 4{puff} 4 Puff, Univers (VENTOLIN) 03-15 Inhalation it y of inhaler 4 01:45: 00:44 [place] :[place] dose, [facility] 03/14/21 at Branch 2044, Routine dexamethaso 2020- No [id number] 10mg 10 mg, Univers ne 03-15 Intramuscu ity of (DECADRON) 01:45: 00:45 lar, ONCE, [place] injection 00 :00 1 dose, Medical 10 mg [facility] 03/14/21 at 2044, Routine albuterol Yes [id number] 2.5mg Inhale 3 Univers 2.5 mg /3 8-27 mL every 4 ity of mL (0.083 00:00: (four) [place] %) 00 hours as Medical nebulizer needed for Bran ch solution Wheezing or Shortness of Breath. albuterol Yes [id number] 2.5mg Inhale 3 Univers 2.5 mg /3 8-27 mL every 4 ity of mL (0.083 00:00: (four) [place] %) 00 hours as Medical nebulizer needed for Bran ch solution Wheezing or Shortness of Breath. albuterol Yes [id number] 2.5mg Inhale 3 Univers 2.5 mg /3 8-27 mL every 4 ity of mL (0.083 00:00: (four) [place] %) 00 hours as Medical nebulizer needed for Bran ch solution Wheezing or Shortness of Breath. albuterol Yes [id number] 2.5mg Inhale 3 Univers 2.5 mg /3 8-27 mL every 4 ity of mL (0.083 00:00: (four) [place] %) 00 hours as Medical nebulizer needed for Bran ch solution Wheezing or Shortness of Breath. albuterol Yes [id number] 2.5mg Inhale 3 Univers 2.5 mg /3 8-27 mL every 4 ity of mL (0.083 00:00: (four) [place] %) 00 hours as Medical nebulizer needed for Bran ch solution Wheezing or Shortness of Breath. albuterol 2020-0 Yes [id number] 2.5mg Inhale 3 Univers 2.5 mg /3 8-27 mL every 4 ity of mL (0.083 00:00: (four) [place] %) 00 hours as Medical nebulizer needed for Bran ch solution Wheezing or Shortness of Breath. albuterol 2020-0 Yes [id number] 2.5mg Inhale 3 Univers 2.5 mg /3 8-27 mL every 4 ity of mL (0.083 00:00: (four) [place] %) 00 hours as Medical nebulizer needed for Bran ch solution Wheezing or Shortness of Breath. albuterol 2020-0 Yes [id number] 2.5mg Inhale 3 Univers 2.5 mg /3 [...] (KEPPRA -03 mouth. ity of ORAL) 19:45: [address] Branch levetiracet 2020-0 Yes Take by Un lois am (KEPPRA 8-03 mouth. ity of ORAL) 19:45: [address] Branch levetiracet 2020-0 Yes Take by Un lois am (KEPPRA 8-03 mouth. ity of ORAL) 19:45: [address] Branch levetiracet 2020-0 Yes Take by Un lois am (KEPPRA 8-03 mouth. ity of ORAL) 19:45: [address] Branch levetiracet 2021-0 Yes Take by Un lois am (KEPPRA 02-19 mouth. ity of ORAL) 19:45: [address] levetiracet Yes Take by Un lois am (KEPPRA 02-19 mouth. ity of ORAL) 19:45: [address] LISINOPRIL- 2020- No Take by U nivers HYDROCHLORO 02-19 mouth. ity o f THIAZIDE 19:41: 00:00 [place] ORAL 15 :00 [facility] Branch dicyclomine 2020- No 20mg [...] Tue Medica l NaCl 0.9% 02/19/21 at [facility] h (NS) 50 mL 1415, 50 piggyback [...] at Branch 1200, MICHAEL iopamidol 2020- No [id number] 100mL 100 mL, Univers (ISOVUE 02-19 08-03 Intravenou ity o f 370-500 mL) 16:35: 16:45 s, ONCE, 1 [place] injection 00 :00 dose, Tue Medic al 100 mL 02/19/21 at Branch 1145, Routine levetiracet 0 Yes Take by Un lois am (KEPPRA 8-03 mouth. ity of ORAL) 14:45: [address] levetiracet 2020-0 Yes Take by Un lois am (KEPPRA 8-03 mouth. ity of ORAL) 14:45: [address] levetiracet 2020-0 Yes Take by Un lois am (KEPPRA 8-03 mouth. ity of ORAL) 14:45: [address] proMETHazin 2020-0 Yes [id number] 25mg Take 1 Univers e 25 mg 8-03 tablet by ity of tablet 00:00: mouth [place] 00 every 6 Medical (six) Branch hours as needed for Nausea and Vomiting (N/V). dicyclomine 2020-0 Yes [id number] 20mg Take 1 Univers 20 mg 8-03 tablet by ity of tablet 00:00: mouth [place] (four) Medical times Branch daily as needed for Abdominal pain. proMETHazin 2020-0 Yes [id number] 25mg Take 1 Univers e 25 mg 8-03 tablet by ity of tablet 00:00: mouth [place] 00 every 6 Medical (six) Branch hours as needed for Nausea and Vomiting (N/V). dicyclomine 2020-0 Yes [id number] 20mg Take 1 Univers 20 mg 8-03 tablet by ity of tablet 00:00: mouth [place] (four) Medical times Branch daily as needed for Abdominal pain. proMETHazin 2020-0 Yes [id number] 25mg Take 1 Univers e 25 mg 8-03 tablet by ity of tablet 00:00: mouth [place] 00 every 6 Medical (six) Branch hours as needed for Nausea and Vomiting (N/V). dicyclomine 2020-0 Yes [id number] 20mg Take 1 Univers 20 mg 8-03 tablet by ity of tablet 00:00: mouth [place] (four) Medical times Branch daily as needed for Abdominal pain. proMETHazin 1-0 Yes [id number] 25mg Take 1 Univers e 25 mg 8-03 tablet by ity of tablet 00:00: mouth [place] 00 every 6 Medical (six) Branch hours as needed for Nausea and Vomiting (N/V). dicyclomine 2020-0 Yes [id number] 20mg Take 1 Univers 20 mg 8-03 tablet by ity of tablet 00:00: mouth 4 00 (four) Medical times Branch daily as needed for Abdominal pain. proMETHazin 2020-0 Yes [id number] 25mg Take 1 Univers e 25 mg 8-03 tablet by ity of tablet 00:00: mouth [place] 00 every 6 Medical (six) Branch hours as needed for Nausea and Vomiting (N/V). dicyclomine 2020-0 Yes [id number] 20mg Take 1 Univers 20 mg 8-03 tablet by ity of tablet 00:00: mouth 4 00 (four) Medical times Branch daily as needed for Abdominal pain. proMETHazin 2020-0 Yes [id number] 25mg Take 1 Univers e 25 mg 8-03 tablet by ity of tablet 00:00: mouth [place] 00 every 6 Medical (six) Branch hours as needed for Nausea and Vomiting (N/V). dicyclomine 2020-0 Yes [id number] 20mg Take 1 Univers 20 mg 8-03 tablet by ity of tablet 00:00: mouth 4 00 (four) Medical times Branch daily as needed for Abdominal pain. proMETHazin 2020-0 Yes [id number] 25mg Take 1 Univers e 25 mg 8-03 tablet by ity of tablet 00:00: mouth [place] 00 every 6 Medical (six) Branch hours as needed for Nausea and Vomiting (N/V). dicyclomine 2021-0 Yes [id number] 20mg Take 1 Univers 20 mg 8-03 tablet by ity of tablet 00:00: mouth 4 00 (four) Medical times Branch daily as needed for Abdominal pain. proMETHazin 2021-0 Yes [id number] 25mg Take 1 Univers e 25 mg 8-03 tablet by ity of tablet 00:00: mouth [place] 00 every 6 Medical (six) Branch hours as needed for Nausea and Vomiting (N/V). dicyclomine 2021-0 Yes [id number] 20mg Take 1 Univers 20 mg 8-03 tablet by ity of tablet 00:00: mouth 4 00 (four) Medical times Branch daily as needed for Abdominal pain. proMETHazin Yes [id number] 25mg Take 1 Univers e 25 mg 8-03 tablet by ity of tablet 00:00: mouth [place] 00 every 6 Medical (six) Branch hours as needed for Nausea and Vomiting (N/V). dicyclomine Yes [id number] 20mg Take 1 Univers 20 mg 8-03 [...] o f mg tablet 20:05: every 8 [place] (eight) Medical hours as Branch needed. pantoprazol Yes 40mg Take 40 mg Univers e 7-24 by mouth ity of (PROTONIX) 20:05: daily. [place] 40 mg EC Medical tablet Branch ondansetron Yes 4mg Take 4 mg U nivers (ZOFRAN) 4 7-24 by mouth ity o f mg tablet 20:05: every 8 [place] (eight) Medical hours as Branch needed. pantoprazol Yes 40mg Take 40 mg Univers e 7-24 by mouth ity of (PROTONIX) 20:05: daily. [place] 40 mg EC Medical tablet Branch LISINOPRIL- Yes Take by Un lois HYDROCHLORO 7-24 mouth. ity of THIAZIDE 20:05: [place] ORAL Medical Branch ondansetron Yes 4mg Take 4 mg U nivers (ZOFRAN) 4 7-24 by mouth ity o f mg tablet 20:05: every 8 [place] (eight) Medical hours as Branch needed. pantoprazol [...] 7-24 by mouth ity of 19:58: daily. [address] Branch loratadine Yes Take by Uni vers (CLARITIN 7-24 mouth ity of LIQUI-GEL) 19:58: daily. [place] 10 mg 14 Medical capsule Branch MULTIVITAMI Yes 1{tbl} Take 1 Tab Univers N ORAL 7-24 by mouth ity of 19:58: daily. [address] loratadine Yes Take by Uni vers (CLARITIN 7-24 mouth ity of LIQUI-GEL) 19:58: daily. [place] 10 mg 14 Medical capsule Branch MULTIVITAMI Yes 1{tbl} Take 1 Tab Univers N ORAL 7-24 by mouth ity of 19:58: daily. [address] loratadine Yes Take by Uni vers (CLARITIN 7-24 mouth ity of LIQUI-GEL) 19:58: daily. [place] 10 mg 14 Medical capsule Branch MULTIVITAMI Yes 1{tbl} Take 1 Tab Univers N ORAL 7-24 by mouth ity of 19:58: daily. [address] loratadine Yes Take by Uni vers (CLARITIN 7-24 mouth ity of LIQUI-GEL) 19:58: daily. [place] 10 mg 14 Medical capsule Branch MULTIVITAMI Yes 1{tbl} Take 1 Tab Univers N ORAL 7-24 by mouth ity of 19:58: daily. [address] loratadine 0 Yes Take by Uni vers (CLARITIN 7-24 mouth ity of LIQUI-GEL) 19:58: daily. [place] 10 mg 14 Medical capsule Branch MULTIVITAMI Yes 1{tbl} Take 1 Tab Univers N ORAL 7-24 by mouth ity of 19:58: daily. [place] 14 Medical Branch loratadine 2017-0 Yes Take by Uni vers (CLARITIN 7-24 mouth ity of LIQUI-GEL) 19:58: daily. [place] 10 mg 14 Medical capsule Branch MULTIVITAMI 0 Yes 1{tbl} Take 1 Tab Univers N ORAL 7-24 by mouth ity of 19:58: daily. [place] [address] Medical Branch loratadine 2017-0 Yes Take by Uni vers (CLARITIN 7-24 mouth ity of LIQUI-GEL) 19:58: daily. [place] 10 mg 14 Medical capsule Branch ondansetron 0 Yes 4mg Take 4 mg U nivers (ZOFRAN) 4 7-24 by mouth ity o f mg tablet 15:05: every 8 [place] [address] (eight) Medical hours as Branch needed. pantoprazol 2017-0 Yes 40mg Take 40 mg Univers e 7-24 by mouth ity of (PROTONIX) 15:05: daily. [place] 40 mg EC Medical tablet Branch ondansetron Yes 4mg Take 4 mg U nivers (ZOFRAN) 4 7-24 by mouth ity o f mg tablet 15:05: every 8 [place] [address] (eight) Medical hours as Branch needed. pantoprazol 2017-0 Yes 40mg Take 40 mg Univers e 7-24 by mouth ity of (PROTONIX) 15:05: daily. [place] 40 mg EC 01 Medical tablet Branch ondansetron 0 Yes 4mg Take 4 mg U nivers (ZOFRAN) 4 7-24 by mouth ity o f mg tablet 15:05: every 8 [place] [address] (eight) Medical hours as Branch needed. pantoprazol [...] 7-24 by mouth ity of 14:58: daily. [address] loratadine Yes Take by Uni vers (CLARITIN 7-24 mouth ity of LIQUI-GEL) 14:58: daily. [place] 10 mg 14 Medical capsule Branch MULTIVITAMI Yes 1{tbl} Take 1 Tab Univers N ORAL 7-24 by mouth ity of 14:58: daily. [address] loratadine Yes Take by Uni vers (CLARITIN 7-24 mouth ity of LIQUI-GEL) 14:58: daily. [place] 10 mg 14 Medical capsule Branch MULTIVITAMI Yes 1{tbl} Take 1 Tab Univers N ORAL 7-24 by mouth ity of 14:58: daily. [address] Branch loratadine Yes Take by Uni [...] 40 00:00: daily. [place] mg tablet 00 [facility] Immunizations Ordered Filled Immunization Date Status Comments [facility] Immunization Name Name SARS-COV-2 COVID-19 2021-05-24 Completed Unive rsity of PFIZER VACCINE 00:00:00 [place] [facility] SARS-COV-2 COVID-19 2021-05-03 Completed Unive rsity of PFIZER VACCINE 00:00:00 [place] [facility] SARS-COV-2 COVID-19 2021-05-03 Completed Unive rsity of PFIZER VACCINE 00:00:00 [place] [facility] Vital Signs Vital Name Observation Time Observation Value Comments Source Systolic blood 2021-03-17 03:00:00 117 mm[Hg] Univer sity of pressure [place] [facility] Diastolic blood 2021-03-17 03:00:00 76 mm[Hg] Unive rsity of pressure [place] [facility] Heart rate 2021-03-17 03:00:00 104 /min Universi ty of [place] [facility] Respiratory rate 2021-03-17 03:00:00 28 /min Univ ersity of [place] [facility] Oxygen saturation in 2021-03-17 03:00:00 96 /min University of Arterial blood by [facility] Pulse oximetry Branch Body temperature 2021-03-17 00:39:[address] [facility] ersity of [place] [facility] Body height 2021-03-17 00:39:00 160 cm Universi ty of [place] [facility] Body weight 2021-03-17 00:39:00 58.968 kg Universi ty of [place] [facility] BMI 2021-03-17 00:39:00 23.03 kg/m2 Universi ty of [place] [facility] Systolic blood 2021-03-15 00:14:00 149 mm[Hg] Univer sity of pressure [place] [facility] Diastolic blood 2021-03-15 00:14:00 78 mm[Hg] Unive rsity of pressure [place] [facility] Heart rate 2021-03-15 00:14:00 100 /min Universi ty of [place] [facility] Body temperature 2021-03-15 00:14:00 37.33 Radha Univ ersity of [place] [facility] Respiratory rate 2021-03-15 00:14:00 24 /min Univ ersity of [place] [facility] Body height 2021-03-15 00:14:00 160 cm Universi ty of [place] [facility] Body weight 2021-03-15 00:14:00 58.968 kg Universi ty of [place] [facility] BMI 2021-03-15 00:14:00 23.03 kg/m2 Universi ty of [place] [facility] Oxygen saturation in 2021-03-15 00:14:00 98 /min University of Arterial blood by [facility] Pulse oximetry Branch Systolic blood 2021-02-19 18:00:00 131 mm[Hg] Univer sity of pressure [place] [facility] Diastolic blood 2021-02-19 18:00:00 80 mm[Hg] Unive rsity of pressure [facility] Heart rate 2021-02-19 18:00:00 83 /min [facility] Respiratory rate 2021-02-19 18:00:00 18 /min [facility] Oxygen saturation in 2021-02-19 18:00:00 100 /min [facility] Arterial blood by [facility] Pulse oximetry [place] Body temperature 2021-02-19 15:47:00 37 Radha [facility] Body height 2021-02-19 15:47:00 160 cm [facility] Body weight 2021-02-19 15:47:00 58.968 kg [facility] BMI 2021-02-19 15:47:00 23.03 kg/m2 [facility] Procedures Procedure Date / Time Performing Clinician Source Performed SARS-COV-2 COVID-19 2021-05-24 14:23:12 Doctor Unassigned, [facility] VACCINE,0.3ML,IM (PFIZER) [facility] SARS-COV-2 COVID-19 2021-05-03 14:59:29 Doctor Unassigned, [facility] [place] VACCINE,0.3ML,IM (PFIZER) [facility] EMERGENCY SERVICES 2021-04-16 05:01:00 Doctor Joe, [facility] AGREEMENTS AND [facility] [place] AUTHORIZATIONS URINALYSIS 2021-03-17 03:09:00 Palmer [facility] XR CHEST 1 VW 2021-03-17 01:45:07 Palmer [facility] TROPONIN I 2021-03-17 01:35:00 Palmer [facility] COMP. METABOLIC PANEL 2021-03-17 01:35:00 [facility] ([id number]) [facility] CBC WITH DIFF 2021-03-17 01:35:00 Palmer [facility] N-TERMINAL PRO-BNP 2021-03-17 01:35:00 [facility] COVID-19 (ID NOW RAPID 2021-03-17 00:58:00 Brian Ray [facility] TESTING) Medical Branch CONSENT/REFUSAL FOR 2021-03-17 00:32:[address] [facility] DIAGNOSIS AND TREATMENT [facility] COVID-19 (ID NOW RAPID 2021-02-19 17:04:[address] [facility] TESTING[facility] Medical Branch CT ABDOMEN PELVIS W 2021-02-19 16:41:18 Anali Patel [facility] CONTRAST Medical Branch LIPASE 2021-02-19 15:58:00 Anali Patel [facility] COMP. METABOLIC PANEL 2021-02-19 15:58:00 Anali Patel [facility] ([id number]) Medical Branch CBC WITH DIFF 2021-02-19 15:58:00 Eliana [facility] URINALYSIS 2021-02-19 15:58:00 Eliana [facility] [place] [facility] NOTICE OF PRIVACY 2021-02-19 15:30:46 Doctor Joe [facility] PRACTICES [facility] [place] CONSENT/REFUSAL FOR 2021-02-19 15:30:30 Doctor Joe [facility] DIAGNOSIS AND TREATMENT [facility] Encounters Start End Encounter Admission Attending Care Care Encounter Source Date/Time Date/Time Type Type Clinicians Facility Department ID 2021-05-20 Emergency [facility] [id number] Univers 18:48:04 [facility] 2021-05-20 Emergency [facility] [id number] Univers 12:43:40 [facility] 2021-11-21 2021-11-21 Outpatient R [facility] [id number] Univers 09:40:00 09:40:[facility] [id number] 2021-05-24 Outpatient R [facility] [id number] Univers 09:30:00 09:30:00 [id number] [facility] 2021-05-24 2021-05-24 Outpatient R SHILPA FREDERICK [facility] [id number] Univers 09:30:00 09:30:00 ity [facility] 2021-05-24 2021-05-24 Imm/Inj Vaccine, [facility] [place] [id number] Univers 08:47:51 08:57:51 Visit Shilpa [place] [id number] ity of [place] [facility] [id number] [facility] 225 Branch 2021-05-03 2021-05-03 Outpatient R SHILPA FREDERICK [facility] [id number] Univers 09:40:00 09:59:35 ity of [facility] 2021-05-03 2021-05-03 Imm/Inj Vaccine, [facility] [place] [id number] Univers 09:17:43 09:59:35 Visit Shilpa [place] [id number] ity of [place] [id number] [facility] 225 [place] 2021-05-03 2021-05-03 Outpatient R [facility] [id number] Univers 09:40:00 09:40:00 [id number] ity of [facility] 2021-04-16 2021-04-16 Orders Doctor EWELINA 1.2.840.114 [id number] Univers 00:00:00 00:00:00 Only Unassigned, [place] [id number] ity of [facility] 4.2.7.2.686 Javier as [phone] [facility] 009 Branch 2021-03-17 2021-03-17 Telephone EWELINA Nava [id number] Univers 00:00:00 00:00:00 Aneatrice [place] [id number] ity of [facility] 4.2.7.2.686 Javier as [id number] [facility] 019 Branch 2021-03-16 2021-03-16 Emergency Palmer [facility] 1.2.840.114 [id number] Univers 20:08:00 23:24:00 Fabrice [place] 350.1.13.10 i ty of [place] [id number] [facility] 084 Branch 2021-03-14 2021-03-14 Urgent Lydia Desouza [facility] 1.2.840.114 [id number] Univers 18:59:34 20:19:13 Care Unknown, Attending [facility] [id number] ity [facility] 4.2.7.2.686 Javier as Prem?Blea [id number] [place] dical [address] Medical Office [facility] 2021-03-14 2021-03-14 Outpatient R [facility] [id number] Univers 19:00:00 19:00:00 [id number] [facility] 2021-03-14 2021-03-14 Outpatient R UNKNOWN, [facility] [id number] Univers 19:00:00 19:00:00 [facility] 2021-02-19 2021-02-19 Emergency Patel, [facility] [id number] Univers 10:49:00 14:48:00 Anali [place] 350.1.13.10 i ty of [place] [id number] [address] 2019-03-09 2019-03-09 [facility] 1.2.840.114 [id number] 00:00:00 00:00:00 Yehuda [place] [id number] [place] 4.2.7.2.686 Professio [id number] [address] 2019-03-09 2019-03-09 [facility] 1.2.840.114 [id number] Univers 00:00:00 00:00:00 Yehuda [place] 350.1.13.10 ity [facility] 4[place] [phone] [address] Results Test Description Test Time Test Comments Results Result Comments Source URINALYSIS 2021-03-17 03:22:48 Test Item Value Reference Range Interpretation Comme nts APPEARANCE (test code = Hazy Clear A 6014636804) COLOR (test code = 0131898382) Yellow Yellow PH (test code = 9151487327) 4.8-8.0 SP GRAVITY (test code = 1.003-1.030 7349588076) GLU U QUAL (test code = Normal Normal 6015672422) BLOOD (test code = 0344680951) Negative Negative Interference from ascorbic acid may cause false negative results. KETONES (test code = 7832208451) 5 mg/dL Negative A PROTEIN (test code = 2887-8) Negative Negative UROBILIN (test code = 4.0 mg/dL Normal A 9289450582) BILIRUBIN (test code = Negative Negative 4017247867) NITRITE (test code = 0574670781) Negative Negative [place] (test code = Negative Negative 5076319428) RBC/HPF (test code = 1265922210) See_Comment [Automated message] The system which ge nerated this result transmit sherice reference range: 0 - 3 HP F. The reference range was not used to interpret th is result as normal/abnormal . WBC/HPF (test code = 0901892862) <1 See_Comment [Automated message] The system which ge nerated this result transmit sherice reference range: 0 - 5 HP F. The reference range was not used to interpret th is result as normal/abnormal . BACTERIA (test code = Few Negative A 0887424251) SQ EPITH (test code = HPF 6858407029) Lab Interpretation (test code = Abnormal 92757-6) [facility] Test Item Value Reference Range Interpretation Comments APPEARANCE (test code = Hazy Clear A 8269304684) COLOR (test code = Yellow Yellow 9636583848) PH (test code = 4.8-8.0 2579275076) SP GRAVITY (test code = 1.003-1.030 6797164744) GLU U QUAL (test code = Normal Normal 8981964282) BLOOD (test code = Negative Negative 9090396018) KETONES (test code = 5 mg/dL Negative A 7108235232) PROTEIN (test code = Negative Negative 2887-8) UROBILIN (test code = 4.0 mg/dL Normal A 6592280399) BILIRUBIN (test code = Negative Negative 7726048680) NITRITE (test code = Negative Negative 1371743813) LEUK GRUPO (test code = Negative Negative 4042072048) RBC/HPF (test code = See_Comment [Autom ated message] 5428372972) The system [employer] generated this result transmit sherice reference range : 0 - 3 HPF. The refe rence range was not u sed to interpret th is result as normal/abnormal . WBC/HPF (test code = <1 See_Comment [Autom ated message] 4667235906) The system [employer] generated this result transmit sherice reference range : 0 - 5 HPF. The refe rence range was not u sed to interpret th is result as normal/abnormal . BACTERIA (test code = Few Negative A 4901772244) SQ EPITH (test code = HPF 4902527282) Lab Interpretation (test Abnormal code = 85799-6) [facility] [id number] 02:45:00 Test Item Value Reference Interpretation Comments Range TROPONIN I (test 0.002 ng/mL See_Comment [Automated code = 1013288172) message] The system which generated this result [...] biotin. Lab Interpretation Normal (test code = 98407-1) [facility] [id number] 02:45:00 Test Item Value Reference Range Interpretation Comments TROPONIN I (test code = 0.002 ng/mL See_Comment [Au tomated 4341031098) message] The sy stem which generated this result transmitted reference range : <=0.034. The reference range was not used to interpret this result as normal/abnormal . LYNDSAY (test code = LYNDSAY) Lab Interpretation Normal (test code = 23176-7) [id number] 02:41:57 Test Item Value Reference Range Interpretation Comments NT-proBNP (test code 169 pg/mL See_Comment H [Autom ated = 6504321475) message] The system which generated this result transmitted reference range : <=125. The reference range was not used to interpret this result as normal/abnormal . LYNDSAY (test code = LYNDSAY) Biotin has been reported to cause a negative bias, interpret results relative to patient's use of biotin. Lab Interpretation Abnormal (test code = 19935-9) [id number] 02:41:57 Test Item Value Reference Range Interpretation Comments NT-proBNP (test code = 169 pg/mL See_Comment H [Aut omated message] 5070946787) The system [employer] generated this result transmit sherice reference range : <=125. The refe rence range was not u sed to interpret th is result as normal/abnormal . LYNDSAY (test code = LYNDSAY) Lab Interpretation (test Abnormal code = 63707-5) [facility]. METABOLIC PANEL (00511)2021-03-17 02:09:13 Test Item Value Reference Range Interpretation Comments NA (test code = 137 mmol/L 135-145 7801051802) K (test code = 4.2 mmol/L 3.5-5.0 4492869793) CL (test code = 102 mmol/L 98-108 7754502138) CO2 TOTAL (test code = 25 mmol/L 23-31 7847547443) AGAP (test code = 2-16 0434444079) BUN (test code = 18 mg/dL 7-23 3206039523) GLUCOSE (test code = 144 mg/dL 70-110 H 9577507063) CREATININE (test code = 0.77 mg/dL 0.50-1.04 2995421466) TOTAL BILI (test code = 0.4 mg/dL 0.1-1.6 9584834958) CALCIUM (test code = 8.9 mg/dL 8.6-10.6 1946231984) T PROTEIN (test code = 6.8 g/dL 6.3-8.2 6527967420) ALBUMIN (test code = 3.9 g/dL 3.5-5.0 8027808528) ALK PHOS (test code = 84 U/L 34-122 1239942422) ALTv (test code = 13 U/L 35 1742-6) AST(SGOT) (test code = 17 U/L 13-40 7288257668) eGFR (test code = mL/min/1.73m2 5654262190) LYNDSAY (test code = LYNDSAY) Association of [...] tests). Lab Interpretation Abnormal (test code = 51798-6) [facility]. METABOLIC PANEL (55218)2021-03-17 02:09:13 Test Item Value Reference Range Interpretation Comments NA (test code = 1819542020) 137 mmol/L 135-145 K (test code = 9265403039) 4.2 mmol/L 3.5-5.0 CL (test code = 4980772646) 102 mmol/L 98-108 CO2 TOTAL (test code = 1068276955) 25 mmol/L 23-31 AGAP (test code = 2043964308) 2-16 BUN (test code = 8324116320) 18 mg/dL 7-23 GLUCOSE (test code = 3394167377) 144 mg/dL 70-110 H CREATININE (test code = 0.77 mg/dL 0.50-1.04 5497024896) TOTAL BILI (test code = 0.4 mg/dL 0.1-1.0 7308114198) CALCIUM (test code = 7915970779) 8.9 mg/dL 8.6-10.6 T PROTEIN (test code = 4645201419) 6.8 g/dL 6.3-8.2 ALBUMIN (test code = 9877212272) 3.9 g/dL 3.5-5.0 ALK PHOS (test code = 1545645791) 84 U/L 34-122 ALTv (test code = 1742-6) 13 U/L 5-35 AST(SGOT) (test code = 9235899523) 17 U/L 13-40 eGFR (test code = 7881644219) mL/min/1.73m2 LYNDSAY (test code = LYNDSAY) Lab Interpretation (test code = Abnormal 67338-5) [facility] WITH [id number] 01:56:33 Test Item Value Reference Range Interpretation Comments WBC (test code = See_Comment H [Automated 2190-2) message] The sy stem which generated this result transmitted reference range : 4.30 - 11.10 10*3/?L. The reference range was not used to interpret this result as normal/abnormal . RBC (test code = See_Comment [Automated 439-8) message] The sy stem which generated this [...] (test code = 55.5 fL 39.0-49.9 H 18159-3) RDW-CV (test code = 18.9 % 12.0-15.5 H 788-0) PLT (test code = See_Comment H [Automated 777-3) message] The sy stem which generated this result transmitted reference range : 166 - 358 10*3/ ?L. The reference r zoe was not used to interpret this result as normal/abnormal . MPV (test code = 8.2 fL 9.5-12.9 L 94901-0) NRBC/100 WBC (test See_Comment [Automat ed code = 3225612565) message] The system which generated this result transmitted reference range : 0.0 - 10.0 /100 WBCs. The refer ence range was not u sed to interpret th is result as normal/abnormal . NRBC x10^3 (test code <0.01 See_Comment [Auto mated = 9805556473) message] The s ystem which generated this result transmitted reference range : 10*3/?L. The reference range was not used to interpret this result as normal/abnormal . GRAN MAT (NEUT) % 61.7 % (test code = 770-8) IMM GRAN % (test code 0.80 % = 6169149096) LYMPH % (test code = 28.5 % 736-9) MONO % (test code = 6.3 % 5905-5) EOS % (test code = 1.8 % 713-8) BASO % (test code = 0.9 % 706-2) GRAN MAT x10^3(ANC) 7.31 10*3/uL 1.88-7.09 H (test code = 6679034405) IMM GRAN x10^3 (test 0.09 10*3/uL 0.00-0.06 H code = 8565629568) LYMPH x10^3 (test code 3.38 10*3/uL 1.32-3.29 H = 731-0) MONO x10^3 (test code 0.75 10*3/uL 0.33-0.92 = 742-7) EOS x10^3 (test code = 0.21 10*3/uL 0.03-0.39 711-2) BASO x10^3 (test code 0.11 10*3/uL 0.01-0.07 H = 704-7) Lab Interpretation Abnormal (test code = 89676-0) [facility] WITH [id number] 01:56:33 Test Item Value Reference Range Interpretation [...] (test code = 55.5 fL 39.0-49.9 H 14496-9) RDW-CV (test code = 18.9 % 12.0-15.5 H 788-0) PLT (test code = See_Comment H [Automated 777-3) message] The sy stem which generated this result transmitted reference range : 166 - 358 10*3/ ?L. The reference r zoe was not used to interpret this result as normal/abnormal . MPV (test code = 8.2 fL 9.5-12.9 L 87879-0) NRBC/100 WBC (test See_Comment [Automat ed code = 2393402961) message] The system which generated this result transmitted reference range : 0.0 - 10.0 /100 WBCs. The refer ence range was not u sed to interpret th is result as normal/abnormal . NRBC x10^3 (test code <0.01 See_Comment [Auto mated = 1494468739) message] The s [employer] which generated this result transmitted reference range : 10*3/?L. The reference range was not used to interpret this result as normal/abnormal . GRAN MAT (NEUT) % 61.7 % (test code = 770-8) IMM GRAN % (test code 0.80 % = 4997017113) LYMPH % (test code = 28.5 % 736-9) MONO % (test code = 6.3 % 5905-5) EOS % (test code = 1.8 % 713-8) BASO % (test code = 0.9 % 706-2) GRAN MAT x10^3(ANC) 7.31 10*3/uL 1.88-7.09 H (test code = 2390822716) IMM GRAN x10^3 (test 0.09 10*3/uL 0.00-0.06 H code = 1530567887) LYMPH x10^3 (test code 3.38 10*3/uL 1.32-3.29 H = 731-0) MONO x10^3 (test code 0.75 10*3/uL 0.33-0.92 = 742-7) EOS x10^3 (test code = 0.21 10*3/uL 0.03-0.39 711-2) BASO x10^3 (test code 0.11 10*3/uL 0.01-0.07 H = 704-7) Lab Interpretation Abnormal (test code = 41056-6) [facility]2021-03-17 01:38:12 Test Item Value Reference Range Interpretation Comments SARS-CoV-2 Rapid ID NOW Not Detected Not Detected (test code = 90920-2) LYNDSAY (test code = LYNDSAY) ID NOW COVID-19 Assay is an isothermal nucleic acid amplification test intended for the qualitative detection of nucleic acid from SARS-CoV-2 viral RNA in nasopharyngeal (BUSINESS TRAVEL CONSULTANT) specimens. It is used under Emergency Use [...] indicated. Lab Interpretation Normal (test code = 18954-4) [facility]2021-03-17 01:38:12 Test Item Value Reference Range Interpretation Comments SARS-CoV-2 Rapid ID NOW (test Not Detected Not Detected code = 36877-2) LYNDSAY (test code = LNYDSAY) Lab Interpretation (test code = Normal 83877-3) [facility]2021-02-19 17:42:45 Test Item Value Reference Range Interpretation Comments SARS-CoV-2 Rapid ID NOW Not Detected Not Detected (test code = 63376-2) LYNDSAY (test code = LYNDSAY) ID NOW COVID-19 Assay is an isothermal nucleic acid amplification test intended for the qualitative detection of nucleic acid from SARS-CoV-2 viral RNA in nasopharyngeal (BUSINESS TRAVEL CONSULTANT) specimens. It is used under Emergency Use [...] indicated. Lab Interpretation Normal (test code = 30418-7) [facility] W [id number] 17:24:55Thickening of the gastric antrum and duodenal bulb could be fromunderdistention, the differential would include sequela of peptic ulcerdisease. No findings of ulcer perforation. Otherwise, no acute intra- abdominal or pelvic abnormality. Stable thickening and nodularity of the left adrenal gland. RL: [phone] Patient name: EUSEBIA ONTIVEROSB: 1970 51 years [...] nodularity of the left adrenal gland.RL: 8722 [facility] Center[facility]inalysis2021-[facility] 17:03:40 Test Item Value Reference Range Interpretation Comments APPEARANCE (test code = Hazy Clear A 6879247655) COLOR (test code = Mabel Yellow A 7121636034) PH (test code = 4.8-8.0 5484901956) SP GRAVITY (test code = 1.003-1.030 H 4957552148) GLU U QUAL (test code = Normal Normal 0046682079) BLOOD (test code = Negative Negative 3515262130) KETONES (test code = 5 mg/dL Negative A 4697017134) PROTEIN (test code = 30 mg/dL Negative A 2887-8) UROBILIN (test code = 4.0 mg/dL Normal A 5100223754) BILIRUBIN (test code = 4 mg/dL Negative A 1548815255) NITRITE (test code = Negative Negative 8060636898) LEUK GRUPO (test code = Negative Negative 2740505180) RBC/HPF (test code = See_Comment H [Autom ated message] 2571813605) The system [employer] generated this result transmit sherice reference range : 0 - 3 HPF. The refe rence range was not u sed to interpret th is result as normal/abnormal . WBC/HPF (test code = See_Comment H [Autom ated message] 7784903709) The system [employer] generated this result transmit sherice reference range : 0 - 5 HPF. The refe rence range was not u sed to interpret th is result as normal/abnormal . BACTERIA (test code = Few Negative A 7881400845) MUCOUS (test code = Moderate Negative LPF A 5625782213) SQ EPITH (test code = HPF 3632494497) CA OXALATE (test code = See_Comment H [Au tomated message] 6555771804) The system [employer] generated this result transmit sherice reference range : <=1 HPF. The refere nce range was not u sed to interpret th is result as normal/abnormal . Ictotest (test code = Negative 0036305010) Lab Interpretation (test Abnormal code = 06792-3) [facility] Center[facility] Metabolic [id number] 16:34:55 Test Item Value Reference Range Interpretation Comments NA (test code = 139 mmol/L 135-145 7884837452) K (test code = 4.3 mmol/L 3.5-5.0 5086116996) CL (test code = 105 mmol/L 98-108 0731912330) CO2 TOTAL (test code 26 mmol/L 23-31 = 2999253516) AGAP (test code = 2-16 2656036117) BUN (test code = 11 mg/dL 7-23 0361739381) GLUCOSE (test code = 95 mg/dL 70-110 4994663357) CREATININE (test code 0.70 mg/dL 0.50-1.04 = 9745453282) TOTAL BILI (test code 0.6 mg/dL 0.1-1.1 = 8360672292) CALCIUM (test code = 8.9 mg/dL 8.6-10.6 8121004183) T PROTEIN (test code 7.7 g/dL 6.3-8.2 = 8976397509) ALBUMIN (test code = 4.1 g/dL 3.5-5.0 1279341553) ALK PHOS (test code = 79 U/L 34-122 7977152211) ALTv (test code = 10 U/L 5-35 1742-6) AST(SGOT) (test code 22 U/L 13-40 = 4892214208) eGFR (test code = mL/min/1.73m2 0268478351) LYNDSAY (test code = LYNDSAY) Association of [...] or urine or abnormalities in imaging tests). [facility] CenterLipase, [id number] 16:34:14 Test Item Value Reference Range Interpretation Comments LIPASE (test code = 9279762683) 45 U/L 0-220 Lab Interpretation (test code = Normal 16590-7) [facility] with [id number] 16:21:12 Test Item Value Reference Range Interpretation Comments WBC (test code = See_Comment [Automated 2090-2) message] The sy stem which generated this [...] (test code = 54.4 fL 39.0-49.9 H 26183-9) RDW-CV (test code = 18.3 % 12.0-15.5 H 788-0) PLT (test code = See_Comment H [Automated 777-3) message] The sy stem which generated this result transmitted reference range : 166 - 358 10*3/ ?L. The reference r zoe was not used to interpret this result as normal/abnormal . MPV (test code = 8.5 fL 9.5-12.9 L 71574-9) NRBC/100 WBC (test See_Comment [Automat ed code = 3415944163) message] The system which generated this result transmitted reference range : 0.0 - 10.0 /100 WBCs. The refer ence range was not u sed to interpret th is result as normal/abnormal . NRBC x10^3 (test code <0.01 See_Comment [Auto mated = 9901568881) message] The s [employer]stem which generated this result transmitted reference range : 10*3/?L. The reference range was not used to interpret this result as normal/abnormal . GRAN MAT (NEUT) % 78.3 % (test code = 770-8) IMM GRAN % (test code 0.40 % = 6767044196) LYMPH % (test code = 15.4 % 736-9) MONO % (test code = 4.8 % 5905-5) EOS % (test code = 0.1 % 713-8) BASO % (test code = 1.0 % 706-2) GRAN MAT x10^3(ANC) 7.15 10*3/uL 1.88-7.09 H (test code = 0248230743) IMM GRAN x10^3 (test 0.04 10*3/uL 0.00-0.06 code = 8549392711) LYMPH x10^3 (test code 1.41 10*3/uL 1.32-3.29 = 731-0) MONO x10^3 (test code 0.44 10*3/uL 0.33-0.92 = 742-7) EOS x10^3 (test code = <0.03 0.03-0.39 L 711-2) BASO x10^3 (test code 0.09 10*3/uL 0.01-0.07 H = 704-7) Lab Interpretation Abnormal (test code = 81162-8) [facility]"
[2021-10-21 11:20] LABS: Absolute Lymphocytes (CBC) 2.4 K/uL (0.7-4.9); Lymphocytes % 27.5 % (15.3-44.8); MPV 6.1 fL (7.6-11.3); RBC Red Blood Cell Count 4.73 M/uL (3.86-4.86)
--- NOTE | 2021-10-21 11:28 | RAD REPORT ---
EXAM DESCRIPTION: CT - Head Brain Wo Cont - 10/21/2021 11:20 am CLINICAL HISTORY: worsening headache Headache, drowsiness COMPARISON: Head Brain Wo Cont dated 10/20/2021; Facial Bones W/ Mpr dated 08/28/2021 TECHNIQUE: All CT scans are performed using dose optimization technique as appropriate and may inclu de automated exposure control or mA/KV adjustment according to patient size. FINDINGS: No intracranial hemorrhage, hydrocephalus or extra-axial fluid collection.No areas of brai n edema or evidence of midline shift. The paranasal sinuses and mastoids are essentially clear. The calvarium is intact. IMPRESSION: No acute intracranial abnormality.
[2021-10-21 11:34] LABS: BUN Blood Urea Nitrogen 9 mg/dL (7-18); Bicarbonate 24 mmol/L (21-32); Glucose Level 103 mg/dL (74-106); Potassium 4.2 mmol/L (3.5-5.1); Sodium Level 138 mmol/L (136-145)
[2021-10-21] MEDS ORDERED: ONDANSETRON 4 MG/2 ML VIAL ONE ×3 (11:34→20:35)
[2021-10-21] MEDS ORDERED: MEPERIDINE HCL 25 MG/ML SYR ONE (11:34)
[2021-10-21] MEDS ORDERED: NA CHLORIDE 0.9% 1,000 ML ONE (11:34)
[2021-10-21] MEDS ORDERED: NA CHLORIDE 0.9% 100 ML IV ONE (12:24)
[2021-10-21] MEDS ORDERED: LEVETIRACETAM 500 MG/5 ML VIAL IV ONE (12:24)
[2021-10-21 12:40] LABS: SARS-COV-2 RT PCR NEGATIVE (NEGATIVE)
--- NOTE | 2021-10-21 12:49 | EDPHYS ---
Physician Documentation [facility] Name: Heather Coon Age: 51 yrs Sex: Female : 1970 Arrival Date: 10/21/2021 Time: 10:59 Bed 6 Private MD: ED Physician Jones Parham HPI: 10/21 11:46 This 51 yrs old Female presents to ER via Unassigned with complaints of Seizure. rn 11:46 The patient presents with a history of multiple seizures, a total of 5. Character of rn seizure(s): Loss of consciousness: it is not known if the patient experienced loss of consciousness, Motor activity: generalized, Incontinence: none, Apnea: the patient did not experience apnea, Circulation: the patient did not experience evidence of pulse disturbance. Seizure onset: this morning. Associated injury: The patient did not suffer any apparent associated injury. Current symptoms: confusion. The patient has experienced similar episodes in the past. The patient has been recently seen at the [facility] Emergency Department. Pt returns after being seen yesterday for post-seizure headache, has now had 5 total seizures today, states compliant with keppra, no trauma. Had neg ct head yesterday. Reports headache worse today after seizures. NO fever. NO meds given by EMS.. - Family history:: not pertinent. - Hospitalizations: : No recent hospitalization is reported. ROS: 11:46 Constitutional: Negative for fever, chills, and weight loss, Eyes: Negative for injury, rn pain, redness, and discharge, Neck: Negative for injury, pain, and swelling, Cardiovascular: Negative for chest pain, palpitations, and edema, Respiratory: Negative for shortness of breath, cough, wheezing, and pleuritic chest pain, Abdomen/GI: Negative for abdominal pain, nausea, vomiting, diarrhea, and constipation, Back: Negative for injury and pain, : Negative for injury, bleeding, discharge, and swelling, MS/Extremity: Negative for injury and deformity, Skin: Negative for injury, rash, and discoloration, Neuro: Negative for weakness, numbness, tingling Exam: 11:46 Constitutional: This is a well developed, well nourished patient who is awake, rn post-ictal Head/Face: Normocephalic, atraumatic. Eyes: Periorbital areas with no swelling, redness, or edema. ENT: dry MM Neck: Trachea midline, No Meningismus. Cardiovascular: Tachycardic, regular. No pulse deficits. Respiratory: No increased work of breathing, no retractions or nasal flaring. Abdomen/GI: soft, non-tender Skin: Warm, dry MS/ Extremity: Pulses equal, no cyanosis. Neuro: Awake, post-ictal, follows commands, turns in bed and repositions herself on her own, moves all 4 ext. Vital Signs: 12:34 BP 210 / 100; Pulse 98; Resp 18; Temp 97.6(T); Pulse Ox 99% on R/A; Weight 72.57 kg; jh6 Height 5 ft. 0 in. (152.40 cm); Pain 10/10; 12:37 BP 137 / 84; Pulse 76; Resp 17; Pulse Ox 100% ; jh6 13:15 BP 130 / 75; Pulse 72; Resp 16; Pulse Ox 100% ; jh6 14:15 BP 141 / 78; Pulse 80; Resp 17; Pulse Ox 100% ; Pain 6/10; jh6 12:34 Body Mass Index 31.25 (72.57 kg, 152.40 cm) 6 [place] Coma Score: 11:49 Eye Response: spontaneous(4). Verbal Response: oriented(5). Motor Response: obeys 6 commands(6). Total: 15. MDM: 10:59 Patient medically screened. rn 12:47 Differential diagnosis: seizure. Data reviewed: vital signs, nurses notes, lab test rn result(s), EKG, radiologic studies, CT scan, and as a result, I will admit patient. Counseling: I had a detailed discussion with the patient and/or guardian regarding: the historical points, exam findings, and any diagnostic results supporting the discharge/admit diagnosis, lab results, radiology results, the need for further work-up and treatment in the hospital. Response to treatment: the patient's symptoms have mildly improved after treatment, and as a result, I will admit patient. Admission orders: after a detailed discussion of the patient's condition and case, the admit orders are written by me. 10/21 11:00 Order name: CBC with Diff; Complete Time: 11:31 rn 10/21 11:00 Order name: Basic Metabolic Panel rn 10/21 11:00 Order name: COVID-19/FLU A+B (Document "Date of Onset" if Symptomatic) rn 10/21 13:03 Order name: CBC with Automated Diff EDMS 10/21 13:03 Order name: CBC with Automated Diff EDMS 10/21 13:03 Order name: Comprehensive Metabolic Panel EDMS 10/21 11:00 Order name: EKG; Complete Time: 11:01 rn 10/21 11:13 Order name: CT Head Brain wo Cont; Complete Time: 11:31 rn 10/21 13:03 Order name: Comprehensive Metabolic Panel EDMS 10/21 11:00 Order name: IV Start; Complete Time: 11:11 rn 10/21 11:00 Order name: Cardiac monitoring rn 10/21 11:00 Order name: O2 Sat Monitoring; Complete Time: 11:13 rn 10/21 11:00 Order name: Glucose Level rn 10/21 11:00 Order name: EKG - Nurse/Tech rn 10/21 13:03 Order name: CONS Physician Consult EDMS 10/21 13:03 Order name: Heart Healthy EDMS Administered Medications: 11:10 Drug: Ativan (LORazepam) 2 mg Route: IVP; Site: right forearm; [facility] 11:37 Drug: Zofran (Ondansetron) 4 mg Route: IVP; Site: right forearm; [facility] 12:53 Follow up: Response: No adverse reaction [facility] 11:37 Drug: Demerol (meperidine) 25 mg Route: IVP; Site: right forearm; [facility] 12:53 Follow up: Response: Pain is decreased [facility] 11:38 Drug: NS 0.9% 1000 ml Route: IV; Rate: 1000 ml; Site: right forearm; [facility] 12:23 Drug: Keppra (levETIRAcetam) 1000 mg Route: IV; Rate: calculated rate; Site: right [facility] forearm; Disposition Summary: 10/21/21 12:48 Hospitalization Ordered Hospitalization Status: Inpatient Admission rn Provider: Darrick Fry rn Location: Telemetry/MedSurg (Inpatient) rn Condition: Stable rn Problem: new rn Symptoms: have improved rn Bed/Room Type: Standard rn Room Assignment: 220(10/21/21 22:27) cg Diagnosis - Epileptic seizures related to external causes, not intractable, with status rn epilepticus Forms: - Medication Reconciliation Form rn - SBAR form rn Signatures: Dispatcher [employer] Jones Larose MD MD rn Garcia, Cindy, RN RN cg Hastedt, Jennifer, RN RN jh6 Corrections: (The following items were deleted from the chart) 22:27 12:48 zhen green
--- NOTE | 2021-10-21 12:49 | ER ---
Nurse's Notes [facility] Name: Heather Coon Age: 51 yrs Sex: Female : 1970 Arrival Date: 10/21/2021 Time: 10:59 Bed 6 Private MD: Diagnosis: Epileptic seizures related to external causes, not intractable, with status epilepticus Presentation: 10/21 12:34 Chief complaint: EMS states: EMS was called by spouse for multiple seizures this am. pt jh6 has hx of seizures and was seen yesterday in er for boggs and seizure. Coronavirus screen: Client denies travel out of the [place] in the last 14 days. Ebola Screen: Patient negative for fever greater than or equal to 101.5 degrees Fahrenheit, and additional compatible Ebola Virus Disease symptoms Patient denies exposure to infectious person. Patient denies travel to an Ebola-affected area in the 21 days before illness onset. No symptoms or risks identified at this time. Initial Sepsis Screen: Does the patient meet any 2 criteria? HR > 90 bpm. No. Patient's initial sepsis screen is negative. Does the patient have a suspected source of infection? No. Patient's initial sepsis screen is negative. Risk Assessment: Do you want to hurt yourself or someone else? Patient reports no desire to harm self or others. Onset of symptoms was October 21, 2021. 12:34 Method Of Arrival: EMS: [place] [id number] 12:34 Acuity: ANDER 2 [facility] Triage Assessment: 11:40 General: Appears in no apparent distress. Behavior is drowsy. [facility] - Family history:: not pertinent. - Hospitalizations: : No recent hospitalization is reported. Screenin:38 Abuse screen: Denies threats or abuse. Nutritional screening: No deficits noted. [facility] Tuberculosis screening: No symptoms or risk factors identified. Fall Risk Secondary diagnosis (15 points) seizures, IV access (20 points). Assessment: 12:36 Reassessment: No changes from previously documented assessment. Patient is alert, [facility] oriented x 3, equal unlabored respirations, skin warm/dry/pink. no further episodes of seizures after arrival to er. Pain: Complains of pain in forehead and left eye. Neuro: Level of Consciousness is lethargic, Oriented to person, place, time, Moves all extremities. Full function. 13:30 Reassessment: Patient and/or family updated on plan of care and expected duration. Pain jh6 level reassessed. Patient is alert, oriented x 3, equal unlabored respirations, skin warm/dry/pink. pt sleeping when walked into room, boyfriend at bedside and call light in reach. 14:30 Reassessment: Patient and/or family updated on plan of care and expected duration. Pain jh6 level reassessed. Patient is alert, oriented x 3, equal unlabored respirations, skin warm/dry/pink. pt became nauseated when got up for bedside commode. reports that boggs is still present even after being able to sleep. 14:30 Pain: Complains of pain in forehead and left eye Pain currently is 4 out of 10 on a jh6 pain scale. Vital Signs: 12:34 BP 210 / 100; Pulse 98; Resp 18; Temp 97.6(T); Pulse Ox 99% on R/A; Weight 72.57 kg; jh6 Height 5 ft. 0 in. (152.40 cm); Pain 10/10; 12:37 BP 137 / 84; Pulse 76; Resp 17; Pulse Ox 100% ; jh6 13:15 BP 130 / 75; Pulse 72; Resp 16; Pulse Ox 100% ; jh6 14:15 BP 141 / 78; Pulse 80; Resp 17; Pulse Ox 100% ; Pain 6/10; jh6 12:34 Body Mass Index 31.25 (72.57 kg, 152.40 cm) jh6 [place] Coma Score: 11:49 Eye Response: spontaneous(4). Verbal Response: oriented(5). Motor Response: obeys jh6 commands(6). Total: 15. ED Course: 10:59 Patient arrived in ED. rn 10:59 Jones Parham MD is Attending Physician. rn 11:10 Yovana Baron, BETH is Primary Nurse. jh6 11:22 CT Head Brain wo Cont In Process Unspecified. EDMS 11:40 Patient placed in an exam room, on a stretcher, on oxygen, on cardiac tech, on pulse jh6 oximetry, pt having seiure on arrival to er, ems reported that it is the second seizure and that they are lasting 30 sec to a min. 11:50 EKG done, by nanotechnology engineering technologist. reviewed by Jones Parham MD. mb7 11:50 Patient has correct armband on for positive identification. Bed in low position. Call mb7 light in reach. Side rails up X 1. Door closed. Noise minimized. 12:36 Triage completed. [facility] 12:48 Darrick Fry MD is Hospitalizing Provider. rn 23:52 No provider procedures requiring assistance completed. Patient admitted, IV remains in as6 place. Administered Medications: 11:10 Drug: Ativan (LORazepam) 2 mg Route: IVP; Site: right forearm; 6 11:37 Drug: Zofran (Ondansetron) 4 mg Route: IVP; Site: right forearm; 6 12:53 Follow up: Response: No adverse reaction [facility] 11:37 Drug: Demerol (meperidine) 25 mg Route: IVP; Site: right forearm; [facility] 12:53 Follow up: Response: Pain is decreased [facility] 11:38 Drug: NS 0.9% 1000 ml Route: IV; Rate: 1000 ml; Site: right forearm; [facility] 12:23 Drug: Keppra (levETIRAcetam) 1000 mg Route: IV; Rate: calculated rate; Site: right [facility] forearm; Outcome: 12:48 Decision to Hospitalize by Provider. rn 23:52 Admitted to Med/surg accompanied by tech, via wheelchair, room 220, with chart, Report as6 called to Zaria fontaine 23:52 Condition: stable 23:52 Instructed on the need for admit. 23:53 Patient left the ED. as6 Signatures: Dispatcher [employer] EDMS Jones Parham MD MD rn Slawson, Ashby, RN RN as6 Yovana Baron RN RN jh6 Shy Gonzalez mb7
[2021-10-21] MEDS ORDERED: ACETAMINOPHEN 500 MG TAB PO PRN (12:52)
[2021-10-21] MEDS: NA CHLORIDE 0.9% 1,000 ML IV SCH (13:00)
[2021-10-21] MEDS: levETIRAcetam 1,000 MG in NA CHLORIDE 0.9% 100 ML IV SCH (14:00)
[2021-10-21] MEDS ORDERED: MORPHINE 2 MG/ML SYR ONE (15:38)
[2021-10-21] MEDS ORDERED: ACETAMINOPHEN 500 MG TAB ONE ×2 (15:38→15:43)
[2021-10-21] MEDS: MORPHINE 2 MG/ML SYR IV PRN ×2 (15:56→20:39)
[2021-10-21] MEDS: ONDANSETRON 4 MG/2 ML VIAL IV PRN ×2 (15:57→20:40)
[2021-10-21 16:20] VITALS: BMI 29.0
--- NOTE | 2021-10-21 17:35 | P.HP ---
Certification for Inpatient Patient admitted to: Inpatient With expected LOS: >2 Midnights Patient will require the following post-hospital care: None Practitioner: I am a practitioner with admitting privileges, knowledge of patient current condition, hospital course, and medical plan of care. Services: Services provided to patient in accordance with Admission requirements found in Title 42 Section 412.3 of the Code of Federal Regulations Patient History Date of Service: 10/21/21 Reason for admission: Seizures History of Present Illness: Patient is a 51-year-old female came to the hospital with multiple seizures. She has been on antibiotics recently and we are because she is having seizures. In the emergency room she had multiple seizures and she was admitted. She has had a history of pseudoseizures. These normally happen when she has her anxiety out of control. We will go ahead and restart her Klonopin. Will continue antiepileptics for now. Reassess her later today. Allergies fluoxetine HCl [From Prozac] Allergy (Severe, Verified 07/05/20 08:59) Anaphylaxis Green tea Allergy (Unknown, Uncoded 06/08/20 05:35) seizures Home Medications: Albuterol Inhaler [Ventolin Inhaler*] 2 puff IH BID PRN 01/22/20 clonazePAM [Klonopin Rapdis Tab] 0.25 mg PO DAILY PRN #30 tab.rapdis 09/11/21 Fluoxetine HCl 20 mg PO DAILY 10/22/21 Levetiracetam [Keppra] 1,500 mg PO DAILY 10/22/21 - Past Medical/Surgical History Has patient received pneumonia vaccine in the past: No Diabetic: No -: COPD -: Hypertension -: migraines -: Depression with anxiety -: Pancreatitis -: Coronary artery disease-prior myocardial infarction -: Diverticulitis -: Seizure disorder -: CAD -: Diverticulitis -: Herniated back disc -: history of seizures -: 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 moist/pink, EOMI, Sclerae nonicteric Neck: Supple, 2+ carotid pulse no bruit, No LAD, Without JVD or thyroid abnormality Respiratory: Clear to auscultation bilaterally, Normal air movement Cardiovascular: Regular rate/rhythm, Normal S1 S2 Gastrointestinal: Normal bowel sounds, No tenderness Musculoskeletal: No tenderness Integumentary: No rashes Neurological: Normal gait, Normal speech, Normal strength at 5/5 x4 extr, Normal tone, Normal affect Lymphatics: No axilla or inguinal lymphadenopathy - Studies Laboratory Data (last 24 hrs) 10/21/21 11:09: Sodium 138, Potassium 4.2, BUN 9, Creatinine 0.68, Glucose 103 10/21/21 11:09: WBC 8.7, Hgb 12.9, Hct 40.0, Plt Count 448 H Assessment & Plan - Problems (Diagnosis) (1) Pseudoseizures Current Visit: Yes Status: Acute (2) Intractable nausea and vomiting Onset Date: 12/25/17 Current Visit: No Status: Acute (3) Hypertension Current Visit: No Status: Chronic Qualifiers: Hypertension type: primary hypertension Qualified Code(s): I10 - Essential (primary) hypertension - Plan PLAN: 1. Continue with anxiolytics 2. Antiepileptics 3. GI/DVT prophyalxis Discharge Plan: Home Plan to discharge in: Greater than 2 days - Advance Directives Does patient have a Living Will: No Does patient have a Durable POA for Healthcare: No - Code Status/Comfort Care Code Status Assessed: Yes Code Status: Full Code Critical Care: No Time Spent Managing PTS Care (In Minutes): 45
[2021-10-21] MEDS ORDERED: NICOTINE 21 MG/PAT TD ONE (20:34)
[2021-10-21] MEDS ORDERED: MORPHINE 4 MG/ML SYR ONE (20:35)
[2021-10-22] MEDS: ONDANSETRON 4 MG/2 ML VIAL IV PRN ×4 (00:52→22:52)
[2021-10-22] MEDS: MORPHINE 2 MG/ML SYR IV PRN ×5 (00:52→22:52)
[2021-10-22] MEDS: levETIRAcetam 1,000 MG in NA CHLORIDE 0.9% 100 ML IV SCH ×2 (02:08→14:33)
[2021-10-22] MEDS: NA CHLORIDE 0.9% 1,000 ML IV SCH ×2 (02:08→15:40)
[2021-10-22 04:32] LABS: Absolute Lymphocytes (CBC) 2.3 K/uL (0.7-4.9); Hematocrit 36.1 % (36.0-45.0); Lymphocytes % 37.1 % (15.3-44.8)
[2021-10-22 04:52] LABS: ALT/SGPT 30 U/L (12-78); AST/SGOT 23 U/L (15-37); Alkaline Phosphatase 82 U/L (45-117); BUN Blood Urea Nitrogen 6 mg/dL (7-18); Bicarbonate 27 mmol/L (21-32); Bilirubin Total 0.2 mg/dL (0.2-1.0); Glucose Level 78 mg/dL (74-106); Potassium 3.7 mmol/L (3.5-5.1); Protein, Total 6.1 g/dL (6.4-8.2); Sodium Level 138 mmol/L (136-145)
--- NOTE | 2021-10-22 08:32 | EKG ---
Test Date: 2021-10-21 Test Time: 11:44:40 Silk Screen Painter: MB MEASUREMENT RESULTS: Intervals: Rate: 87 UT: 154 QRSD: 86 QT: 380 QTc: 457 [place]: P: 266 UT: 154 QRS: 109 T: 61 INTERPRETIVE STATEMENTS: Unusual P axis, possible ectopic atrial rhythm Rightward axis Abnormal ECG Compared to ECG 10/20/2021 16:32:29 Sinus tachycardia no longer present Electronically Signed On 10-22-21 08:28:14 CDT by Migel Warren
[2021-10-22] MEDS: NICOTINE 21 MG/PAT TD SCH (08:41)
[2021-10-22] MEDS ORDERED: CLONAZEPAM PO PRN (17:54)
[2021-10-22] MEDS ORDERED: RAPDIS PO PRN (17:54)
[2021-10-22] MEDS ORDERED: ALBUTEROL INHALER 60 PUFF/8 GM IH PRN (17:54)
[2021-10-22] MEDS ORDERED: HYDROCORTISONE SUC 100 MG INJ IV ONE (18:00)
--- NOTE | 2021-10-22 18:03 | P.PN ---
Subjective Date of Service: 10/22/21 Subjective: No new changes, No C/O voiced, Improving Review of Systems 10-point ROS is otherwise unremarkable Physical Examination - Vital Signs Temperature: 97.6 F Blood Pressure: 136/80 Pulse: 78 Respirations: 16 Pulse Ox (%): 99 - Physical Exam General: Alert, In no apparent distress, Oriented x3 HEENT: Atraumatic, PERRLA, EOMI Neck: Supple, JVD not distended Respiratory: Clear to auscultation bilaterally, Normal air movement Cardiovascular: Regular rate/rhythm, Normal S1 S2 Gastrointestinal: Normal bowel sounds, No tenderness Musculoskeletal: No tenderness Integumentary: No rashes Neurological: Normal speech, Normal tone, Normal affect Lymphatics: No axilla or inguinal lymphadenopathy - Studies Medications List Reviewed: Yes Assessment & Plan - Problems (Diagnosis) (1) Pseudoseizures Current Visit: Yes Status: Acute (2) Intractable nausea and vomiting Onset Date: 12/25/17 Current Visit: No Status: Acute (3) Hypertension Current Visit: No Status: Chronic Qualifiers: Hypertension type: primary hypertension Qualified Code(s): I10 - Essential (primary) hypertension - Plan PLAN: 1. Continue with anxiolytics 2. Antiepileptics 3. GI/DVT prophyalxis - Advance Directives Does patient have a Living Will: No Does patient have a Durable POA for Healthcare: No - Code Status/Comfort Care Code Status: Full Code
[2021-10-22] MEDS ORDERED: clonazePAM 0.5 MG TAB PO PRN (18:10)
[2021-10-22] MEDS ORDERED: HOME MED 1 EA UNK [ALBUTEROL INHALER 60 PUFF/8 GM] IH PRN (18:29)
[2021-10-22] MEDS: PROMETHAZINE 25 MG TABLET PO PRN (18:36)
[2021-10-22] MEDS ORDERED: levETIRAcetam 500 MG TAB PO SCH (21:00)
[2021-10-23] MEDS: MORPHINE 2 MG/ML SYR IV PRN ×2 (06:37→11:56)
[2021-10-23] MEDS: PROMETHAZINE 25 MG TABLET PO PRN (06:37)
--- NOTE | 2021-10-23 08:13 | EEG ---
CHART: [id number] TEST ID#: [id number] DATE OF STUDY: 10/22/2021 THE EEG WAS RECORDED PORTABLE IN THE PATIENT'S ROOM ON A 17 CHANNEL MACHINE. ELECTRODES WERE APPLIED IN THE USUAL MANNER USING THE INTERNATIONAL 10-20 SYSTEM. THE WAKING BACKGROUND RHYTHM IN THIS RECORD CONSISTS OF WELL DEVELOPED AND WELL ORGANIZED WAVES OF 7 HZ., MAXIMAL IN THE POSTERIOR HEAD REGIONS WHICH ATTENUATE NORMALLY WITH EYE OPENING. LOW-VOLTAGE 18-22 HZ ACTIVITY IS EXPRESSED IN THE FRONTAL REGIONS. THERE ARE NO FOCAL OR LATERALIZING FEATURES. NO EPILEPTIFORM ACTIVITY APPEARS. SLEEP OCCURRED NATURALLY. IN ADDITION NORMAL SLEEP PATTERNS ARE PRESENT. HYPERVENTILATION WAS NOT PERFORMED. PHOTIC STIMULATION PRODUCED GOOD DRIVING BILATERALLY. IMPRESSION: NORMAL EEG FOR THE AGE OF THE PATIENT IN [place], DROWSINESS AND SLEEP.
[2021-10-23] MEDS ORDERED: levETIRAcetam 500 MG TAB PO SCH (09:00)
[2021-10-23] MEDS ORDERED: FLUOXETINE 20 MG CAP PO SCH (09:00)
[2021-10-23] MEDS: NICOTINE 21 MG/PAT TD SCH (09:44)
[2021-10-23 11:31] VITALS: O2SAT 97
[2021-10-23] MEDS: ONDANSETRON 4 MG/2 ML VIAL IV PRN (11:56)
[2021-10-23 12:54] VITALS: BP 148/78; TEMP 97.4
== END 2021-10-23 14:45 | disposition home or self-care (01) | DRG 101 ==
LOC: ER 10:57 → ERHOLD 12:56 → 2ND 23:03
PROVIDERS: ADMIT Hospitalist; ATTEND Hospitalist
DX: R56.9 Unspecified convulsions (principal); R11.2 Nausea with vomiting, unspecified; I10 Essential (primary) hypertension; J44.9 Chronic obstructive pulmonary disease, unspecified; F41.8 Other specified anxiety disorders; I25.10 Atherosclerotic heart disease of native coronary artery without angina pectoris; I25.2 Old myocardial infarction; Z82.49 Family history of ischemic heart disease and other diseases of the circulatory system; Z83.3 Family history of diabetes mellitus; Z84.1 Family history of disorders of kidney and ureter; F17.210 Nicotine dependence, cigarettes, uncomplicated; Z20.822 Contact with and (suspected) exposure to COVID-19
CPT/HCPCS: 0240U; 36415; 70450; 80048; 80053; 82947; 85025; 93005; 95819; 96374; 96375; 99285; J1720; J1953; J2175; J2270; J2405; J7030; Q0169

== ENCOUNTER 2021-11-13 21:46 | Emergency (ER) | payer SELFPAY ==
--- OUTSIDE RECORDS SUMMARY | 2021-11-13 21:50 | XMS REPORT | Continuity of Care Document ---
:1970 Author Organization [facility] t Address [address] [place] [address] Care Team Providers Name Role Phone PCP, DOES NOT HAVE A Primary Care Physician Unavailable OTONIEL Attending Clinician Unavailable Carlito Grahami Attending Clinician Unavailable Otoniel ELIZONDO Attending Clinician Doctor Unassigned, Name Attending Clinician Unavailable Brandy CAMPOS Attending Clinician Unavailable Palmer BRONSONP Attending Clinician Deo [employer]IC Attending Clinician Unknown Attending Clinician Unavailable UNKNOWN [...] tobacco Cigar Smoker Univ ersity of use [facility] Exposure to Not sure [place] of SARS-CoV-2 (event) [facility] Alcohol intake 2021-03-21 2021-03-21 0 /d University of 00:00:00 00:00:00 [facility] Cigarettes smoked 2021-03-14 2021-03-14 Univers ity of current (pack per 00:00:00 00:00:00 ) - Reported Branch Cigarette 2021-03-14 2021-03-14 University of pack-years 00:00:00 00:00:00 [facility] Tobacco use and 2021-03-14 2021-03-14 Never used Universit y of exposure 00:00:00 00:00:00 [facility] Sex [birth year] At [birth year] Universit y of 00:00:00 00:00:00 [facility] Smoking Status Start Date Stop Date Source Current every day smoker 2021-03-14 00:00:00 Uni versity of [facility] Medications Ordered Filled Start Stop Current [...] 00 :00 dose, Sat Medical 03/16/21 at [place] 2100, STAT ondansetron 2020- No 4mg 4 [...] Slow IV ity of succ 01:57: 02:11 [place], [place] (SOLU-MEDRO 00 :00 ONCE, 1 Medic [...] Slow IV ity of succ 01:57: 02:11 [place], [place] (SOLU-MEDRO 00 :00 ONCE, 1 Medic [...] nebulizer solution 3 mL levoFLOXaci 2020- No [id number] 500mg Take 1 Univers n 500 mg 03-17 tablet by ity o f tablet 00:00: 04:59 mouth [place] 00 :00 daily for Medical 6 days. [place] levoFLOXaci 2020- No [id number] 500mg Take 1 Univers n 500 mg 03-17 tablet by ity o f tablet 00:00: 04:59 mouth [place] 00 :00 daily for Medical 6 days. [place] levoFLOXaci 2020- No [id number] 500mg Take 1 Univers n 500 mg 03-17 tablet by ity o f tablet 00:00: 04:59 mouth [place] 00 :00 daily for Medical 6 days. [place] levoFLOXaci 2020- No [id number] 500mg Take 1 Univers n 500 mg 03-17 tablet by ity o f tablet 00:00: 04:59 mouth [place] 00 :00 daily for Medical 6 days. [place] predniSONE 2020- No [id number] 30mg Take 3 Univers 10 mg 03-17 tablets by ity of tablet 00:00: 04:59 mouth [place] 00 :00 daily for Medical 4 days. Branch predniSONE 2020- No [id number] 30mg Take 3 Univers 10 mg 03-17 tablets by ity of tablet 00:00: 04:59 mouth [place] 00 :00 daily for Medical 4 days. Branch predniSONE 2020- No [id number] 30mg Take 3 Univers 10 mg 03-17 tablets by ity of tablet 00:00: 04:59 mouth [place] 00 :00 daily for Medical 4 days. Branch predniSONE 2020- No [id number] 30mg Take 3 Univers 10 mg 03-17 tablets by ity of tablet 00:00: 04:59 mouth [place] 00 :00 daily for Medical 4 days. [place] albuterol 2020- No [id number] 4{puff} 4 Puff, Univers (VENTOLIN) 03-15 Inhalation it y of inhaler 4 01:45: 00:44 [place] :[place] dose, [facility] 03/14/21 at Branch 2044, Routine dexamethaso 2020- No [id number] 10mg 10 mg, Univers ne 03-15 Intramuscu ity of (DECADRON) 01:45: 00:45 lar, ONCE, [place] injection 00 :00 1 dose, Medical 10 mg [facility] 03/14/21 at 2044, Routine albuterol Yes [id number] 2.5mg Inhale 3 Univers 2.5 mg /3 8-27 mL every 4 ity of mL (0.083 00:00: (four) [place] %) 00 hours as Medical nebulizer needed for Bran ch solution Wheezing or Shortness of Breath. albuterol Yes [id number] 2.5mg Inhale 3 Univers 2.5 mg /3 8-27 mL every 4 ity of mL (0.083 00:00: (four) [place] %) 00 hours as Medical nebulizer needed for Bran ch solution Wheezing or Shortness of Breath. albuterol Yes [id number] 2.5mg Inhale 3 Univers 2.5 mg /3 8-27 mL every 4 ity of mL (0.083 00:00: (four) [place] %) 00 hours as Medical nebulizer needed for Bran ch solution Wheezing or Shortness of Breath. albuterol Yes [id number] 2.5mg Inhale 3 Univers 2.5 mg /3 8-27 mL every 4 ity of mL (0.083 00:00: (four) [place] %) 00 hours as Medical nebulizer needed for Bran ch solution Wheezing or Shortness of Breath. albuterol Yes [id number] 2.5mg Inhale 3 Univers 2.5 mg /3 8-27 mL every 4 ity of mL (0.083 00:00: (four) [place] %) 00 hours as Medical nebulizer needed for Bran ch solution Wheezing or Shortness of Breath. albuterol 2020-0 Yes [id number] 2.5mg Inhale 3 Univers 2.5 mg /3 8-27 mL every 4 ity of mL (0.083 00:00: (four) [place] %) 00 hours as Medical nebulizer needed for Bran ch solution Wheezing or Shortness of Breath. albuterol 2020-0 Yes [id number] 2.5mg Inhale 3 Univers 2.5 mg /3 8-27 mL every 4 ity of mL (0.083 00:00: (four) [place] %) 00 hours as Medical nebulizer needed for Bran ch solution Wheezing or Shortness of Breath. albuterol 2020-0 Yes [id number] 2.5mg Inhale 3 Univers 2.5 mg /3 [...] (KEPPRA -03 mouth. ity of ORAL) 19:45: [address] Branch levetiracet 2020-0 Yes Take by Un lois am (KEPPRA 8-03 mouth. ity of ORAL) 19:45: [address] Branch levetiracet 2020-0 Yes Take by Un lois am (KEPPRA 8-03 mouth. ity of ORAL) 19:45: [address] Branch levetiracet 2020-0 Yes Take by Un lois am (KEPPRA 8-03 mouth. ity of ORAL) 19:45: [address] Branch levetiracet 2021-0 Yes Take by Un lois am (KEPPRA 02-19 mouth. ity of ORAL) 19:45: [address] levetiracet Yes Take by Un lois am (KEPPRA 02-19 mouth. ity of ORAL) 19:45: [address] LISINOPRIL- 2020- No Take by U nivers HYDROCHLORO 02-19 mouth. ity o f THIAZIDE 19:41: 00:00 [place] ORAL 15 :00 [facility] Branch dicyclomine 2020- No 20mg 20 [...] l NaCl 0.9% 02/19/21 at [facility] h (NS) 50 mL 1415, 50 [...] at Branch 1200, MICHAEL iopamidol 2020- No [id number] 100mL 100 mL, Univers (ISOVUE 02-19 08-03 Intravenou ity o f 370-500 mL) 16:35: 16:45 s, ONCE, 1 [place] injection 00 :00 dose, Tue Medic al 100 mL 02/19/21 at Branch 1145, Routine levetiracet 0 Yes Take by Un lois am (KEPPRA 8-03 mouth. ity of ORAL) 14:45: [address] levetiracet 2020-0 Yes Take by Un lois am (KEPPRA 8-03 mouth. ity of ORAL) 14:45: [address] levetiracet 2020-0 Yes Take by Un lois am (KEPPRA 8-03 mouth. ity of ORAL) 14:45: [address] proMETHazin 2020-0 Yes [id number] 25mg Take 1 Univers e 25 mg 8-03 tablet by ity of tablet 00:00: mouth [place] 00 every 6 Medical (six) Branch hours as needed for Nausea and Vomiting (N/V). dicyclomine 2020-0 Yes [id number] 20mg Take 1 Univers 20 mg 8-03 tablet by ity of tablet 00:00: mouth [place] (four) Medical times Branch daily as needed for Abdominal pain. proMETHazin 2020-0 Yes [id number] 25mg Take 1 Univers e 25 mg 8-03 tablet by ity of tablet 00:00: mouth [place] 00 every 6 Medical (six) Branch hours as needed for Nausea and Vomiting (N/V). dicyclomine 2020-0 Yes [id number] 20mg Take 1 Univers 20 mg 8-03 tablet by ity of tablet 00:00: mouth [place] (four) Medical times Branch daily as needed for Abdominal pain. proMETHazin 2020-0 Yes [id number] 25mg Take 1 Univers e 25 mg 8-03 tablet by ity of tablet 00:00: mouth [place] 00 every 6 Medical (six) Branch hours as needed for Nausea and Vomiting (N/V). dicyclomine 2020-0 Yes [id number] 20mg Take 1 Univers 20 mg 8-03 tablet by ity of tablet 00:00: mouth [place] (four) Medical times Branch daily as needed for Abdominal pain. proMETHazin 1-0 Yes [id number] 25mg Take 1 Univers e 25 mg 8-03 tablet by ity of tablet 00:00: mouth [place] 00 every 6 Medical (six) Branch hours as needed for Nausea and Vomiting (N/V). dicyclomine 2020-0 Yes [id number] 20mg Take 1 Univers 20 mg 8-03 tablet by ity of tablet 00:00: mouth 4 00 (four) Medical times Branch daily as needed for Abdominal pain. proMETHazin 2020-0 Yes [id number] 25mg Take 1 Univers e 25 mg 8-03 tablet by ity of tablet 00:00: mouth [place] 00 every 6 Medical (six) Branch hours as needed for Nausea and Vomiting (N/V). dicyclomine 2020-0 Yes [id number] 20mg Take 1 Univers 20 mg 8-03 tablet by ity of tablet 00:00: mouth 4 00 (four) Medical times Branch daily as needed for Abdominal pain. proMETHazin 2020-0 Yes [id number] 25mg Take 1 Univers e 25 mg 8-03 tablet by ity of tablet 00:00: mouth [place] 00 every 6 Medical (six) Branch hours as needed for Nausea and Vomiting (N/V). dicyclomine 2020-0 Yes [id number] 20mg Take 1 Univers 20 mg 8-03 tablet by ity of tablet 00:00: mouth 4 00 (four) Medical times Branch daily as needed for Abdominal pain. proMETHazin 2020-0 Yes [id number] 25mg Take 1 Univers e 25 mg 8-03 tablet by ity of tablet 00:00: mouth [place] 00 every 6 Medical (six) Branch hours as needed for Nausea and Vomiting (N/V). dicyclomine 2021-0 Yes [id number] 20mg Take 1 Univers 20 mg 8-03 tablet by ity of tablet 00:00: mouth 4 00 (four) Medical times Branch daily as needed for Abdominal pain. proMETHazin 2021-0 Yes [id number] 25mg Take 1 Univers e 25 mg 8-03 tablet by ity of tablet 00:00: mouth [place] 00 every 6 Medical (six) Branch hours as needed for Nausea and Vomiting (N/V). dicyclomine 2021-0 Yes [id number] 20mg Take 1 Univers 20 mg 8-03 tablet by ity of tablet 00:00: mouth 4 00 (four) Medical times Branch daily as needed for Abdominal pain. proMETHazin Yes [id number] 25mg Take 1 Univers e 25 mg 8-03 tablet by ity of tablet 00:00: mouth [place] 00 every 6 Medical (six) Branch hours as needed for Nausea and Vomiting (N/V). dicyclomine Yes [id number] 20mg Take 1 Univers 20 mg 8-03 [...] o f mg tablet 20:05: every 8 [place] (eight) Medical hours as Branch needed. pantoprazol Yes 40mg Take 40 mg Univers e 7-24 by mouth ity of (PROTONIX) 20:05: daily. [place] 40 mg EC Medical tablet Branch ondansetron Yes 4mg Take 4 mg U nivers (ZOFRAN) 4 7-24 by mouth ity o f mg tablet 20:05: every 8 [place] (eight) Medical hours as Branch needed. pantoprazol Yes 40mg Take 40 mg Univers e 7-24 by mouth ity of (PROTONIX) 20:05: daily. [place] 40 mg EC Medical tablet Branch LISINOPRIL- Yes Take by Un lois HYDROCHLORO 7-24 mouth. ity of THIAZIDE 20:05: [place] ORAL Medical Branch ondansetron Yes 4mg Take 4 mg U nivers (ZOFRAN) 4 7-24 by mouth ity o f mg tablet 20:05: every 8 [place] (eight) Medical hours as Branch needed. pantoprazol [...] by mouth ity of 19:58: daily. [address] Branch loratadine Yes Take by Uni vers (CLARITIN 7-24 mouth ity of LIQUI-GEL) 19:58: daily. [place] 10 mg 14 Medical capsule Branch MULTIVITAMI Yes 1{tbl} Take 1 Tab Univers N ORAL 7-24 by mouth ity of 19:58: daily. [address] loratadine Yes Take by Uni vers (CLARITIN 7-24 mouth ity of LIQUI-GEL) 19:58: daily. [place] 10 mg 14 Medical capsule Branch MULTIVITAMI Yes 1{tbl} Take 1 Tab Univers N ORAL 7-24 by mouth ity of 19:58: daily. [address] loratadine Yes Take by Uni vers (CLARITIN 7-24 mouth ity of LIQUI-GEL) 19:58: daily. [place] 10 mg 14 Medical capsule Branch MULTIVITAMI Yes 1{tbl} Take 1 Tab Univers N ORAL 7-24 by mouth ity of 19:58: daily. [address] loratadine Yes Take by Uni vers (CLARITIN 7-24 mouth ity of LIQUI-GEL) 19:58: daily. [place] 10 mg 14 Medical capsule Branch MULTIVITAMI Yes 1{tbl} Take 1 Tab Univers N ORAL 7-24 by mouth ity of 19:58: daily. [address] loratadine 0 Yes Take by Uni vers (CLARITIN 7-24 mouth ity of LIQUI-GEL) 19:58: daily. [place] 10 mg 14 Medical capsule Branch MULTIVITAMI Yes 1{tbl} Take 1 Tab Univers N ORAL 7-24 by mouth ity of 19:58: daily. [place] 14 Medical Branch loratadine 2017-0 Yes Take by Uni vers (CLARITIN 7-24 mouth ity of LIQUI-GEL) 19:58: daily. [place] 10 mg 14 Medical capsule Branch MULTIVITAMI 0 Yes 1{tbl} Take 1 Tab Univers N ORAL 7-24 by mouth ity of 19:58: daily. [place] [address] Medical Branch loratadine 2017-0 Yes Take by Uni vers (CLARITIN 7-24 mouth ity of LIQUI-GEL) 19:58: daily. [place] 10 mg 14 Medical capsule Branch ondansetron 0 Yes 4mg Take 4 mg U nivers (ZOFRAN) 4 7-24 by mouth ity o f mg tablet 15:05: every 8 [place] [address] (eight) Medical hours as Branch needed. pantoprazol 2017-0 Yes 40mg Take 40 mg Univers e 7-24 by mouth ity of (PROTONIX) 15:05: daily. [place] 40 mg EC Medical tablet Branch ondansetron Yes 4mg Take 4 mg U nivers (ZOFRAN) 4 7-24 by mouth ity o f mg tablet 15:05: every 8 [place] [address] (eight) Medical hours as Branch needed. pantoprazol 2017-0 Yes 40mg Take 40 mg Univers e 7-24 by mouth ity of (PROTONIX) 15:05: daily. [place] 40 mg EC 01 Medical tablet Branch ondansetron 0 Yes 4mg Take 4 mg U nivers (ZOFRAN) 4 7-24 by mouth ity o f mg tablet 15:05: every 8 [place] [address] (eight) Medical hours as Branch needed. pantoprazol [...] 7-24 by mouth ity of 14:58: daily. [address] loratadine Yes Take by Uni vers (CLARITIN 7-24 mouth ity of LIQUI-GEL) 14:58: daily. [place] 10 mg 14 Medical capsule Branch MULTIVITAMI Yes 1{tbl} Take 1 Tab Univers N ORAL 7-24 by mouth ity of 14:58: daily. [address] loratadine Yes Take by Uni vers (CLARITIN 7-24 mouth ity of LIQUI-GEL) 14:58: daily. [place] 10 mg 14 Medical capsule Branch MULTIVITAMI Yes 1{tbl} Take 1 Tab Univers N ORAL 7-24 by mouth ity of 14:58: daily. [address] Branch loratadine Yes Take by Uni [...] 00:00: daily. [place] mg tablet 00 [facility] Immunizations Ordered Filled Immunization Date Status Comments [facility] Immunization Name Name SARS-COV-2 COVID-19 2021-05-24 Completed Unive rsity of PFIZER VACCINE 00:00:00 [facility] SARS-COV-2 COVID-19 2021-05-03 Completed Unive rsity of PFIZER VACCINE 00:00:00 [facility] SARS-COV-2 COVID-19 2021-05-03 Completed Unive rsity of PFIZER VACCINE 00:00:00 [facility] Vital Signs Vital Name Observation Time Observation Value Comments Source Systolic blood 2021-03-17 03:00:00 117 mm[Hg] Univer sity of pressure [place] [facility] Diastolic blood 2021-03-17 03:00:00 76 mm[Hg] Unive rsity of pressure [place] [facility] Heart rate 2021-03-17 03:00:00 104 /min Universi ty of [place] [facility] Respiratory rate 2021-03-17 03:00:00 28 /min Univ ersity of [place] [facility] Oxygen saturation in 2021-03-17 03:00:00 96 /min University of Arterial blood by [facility] Pulse oximetry Branch Body temperature 2021-03-17 00:39:[address] [facility] ersity of [place] [facility] Body height 2021-03-17 00:39:00 160 cm Universi ty of [place] [facility] Body weight 2021-03-17 00:39:00 58.968 kg Universi ty of [place] [facility] BMI 2021-03-17 00:39:00 23.03 kg/m2 Universi ty of [place] [facility] Systolic blood 2021-03-15 00:14:00 149 mm[Hg] Univer sity of pressure [place] [facility] Diastolic blood 2021-03-15 00:14:00 78 mm[Hg] Unive rsity of pressure [place] [facility] Heart rate 2021-03-15 00:14:00 100 /min Universi ty of [place] [facility] Body temperature 2021-03-15 00:14:00 37.33 Radha Univ ersity of [place] [facility] Respiratory rate 2021-03-15 00:14:00 24 /min Univ ersity of [place] [facility] Body height 2021-03-15 00:14:00 160 cm Universi ty of [place] [facility] Body weight 2021-03-15 00:14:00 58.968 kg Universi ty of [place] [facility] BMI 2021-03-15 00:14:00 23.03 kg/m2 Universi ty of [place] [facility] Oxygen saturation in 2021-03-15 00:14:00 98 /min University of Arterial blood by [facility] Pulse oximetry Branch Systolic blood 2021-02-19 18:00:00 131 mm[Hg] Univer sity of pressure [place] [facility] Diastolic blood 2021-02-19 18:00:00 80 mm[Hg] Unive rsity of pressure [facility] Heart rate 2021-02-19 18:00:00 83 /min [facility] Respiratory rate 2021-02-19 18:00:00 18 /min [facility] Oxygen saturation in 2021-02-19 18:00:00 100 /min [facility] Arterial blood by [facility] Pulse oximetry [place] Body temperature 2021-02-19 15:47:00 37 Radha [facility] Body height 2021-02-19 15:47:00 160 cm [facility] Body weight 2021-02-19 15:47:00 58.968 kg [facility] BMI 2021-02-19 15:47:00 23.03 kg/m2 [facility] Procedures Procedure Date / Time Performing Clinician Source Performed SARS-COV-2 COVID-19 2021-05-24 14:23:12 Doctor Unassigned, [facility] VACCINE,0.3ML,IM (PFIZER) [place] [facility] SARS-COV-2 COVID-19 2021-05-03 14:59:29 Doctor Unassigned, [facility] of [place] VACCINE,0.3ML,IM (PFIZER) [place] [facility] EMERGENCY SERVICES 2021-04-16 05:01:00 Doctor Joe, [facility] AGREEMENTS AND [place] [facility] [place] AUTHORIZATIONS URINALYSIS 2021-03-17 03:09:00 [facility] XR CHEST 1 VW 2021-03-17 01:45:07 [facility] TROPONIN I 2021-03-17 01:35:00 [facility] COMP. METABOLIC PANEL 2021-03-17 01:35:00 [facility] ([id number] CBC WITH DIFF 2021-03-17 01:35:00 [facility] N-TERMINAL PRO-BNP 2021-03-17 01:35:00 [facility] COVID-19 (ID NOW RAPID 2021-03-17 00:58:00 Brian Ray [facility] TESTING) Medical Branch CONSENT/REFUSAL FOR 2021-03-17 00:32:[address] [facility] DIAGNOSIS AND TREATMENT [place] [facility] COVID-19 (ID NOW RAPID 2021-02-19 17:04:[address] [facility] Medical Branch CT ABDOMEN PELVIS W 2021-02-19 16:41:18 Anali Ptael [facility] CONTRAST Medical Branch LIPASE 2021-02-19 15:58:00 Anali Patel [facility] COMP. METABOLIC PANEL 2021-02-19 15:58:00 Anali Patel [facility] ([id number]) Medical Branch CBC WITH DIFF 2021-02-19 15:58:00 Eliana [facility] URINALYSIS 2021-02-19 15:58:00 Eliana [facility] NOTICE OF PRIVACY 2021-02-19 15:30:46 Doctor Joe [facility] PRACTICES [place] [facility] [place] CONSENT/REFUSAL FOR 2021-02-19 15:30:30 Doctor Joe [facility] DIAGNOSIS AND TREATMENT [place] [facility] Encounters Start End Encounter Admission Attending Care Care Encounter Source Date/Time Date/Time Type Type Clinicians Facility Department ID 2021-05-20 Emergency [facility] [id number] Univers 18:48:04 [facility] 2021-05-20 Emergency [facility] [id number] Univers 12:43:40 [facility] 2021-11-21 2021-11-21 Outpatient R [facility] [id number] Univers 09:40:00 09:40:[id number] 2021-05-[facility] 2021-05-24 Outpatient R [facility] [id number] Univers 09:30:00 09:30:00 [id number] [facility] 2021-05-24 2021-05-24 Outpatient R SHILPA FREDERICK [facility] [id number] Univers 09:30:00 09:30:00 ity [facility] 2021-05-24 2021-05-24 Imm/Inj Vaccine, [facility] [place] [id number] Univers 08:47:51 08:57:51 Visit Shilpa [place] [id number] ity [place] [facility] [id number] [facility] 225 Branch 2021-05-03 2021-05-03 Outpatient R SHILPA FREDERICK [facility] [id number] Univers 09:40:00 09:59:35 ity of [facility] 2021-05-03 2021-05-03 Imm/Inj Vaccine, [facility] [place] 1.2.840.114 [id number] Univers 09:17:43 09:59:35 Visit Shilpa [place] [id number] ity [place] [id number] [facility] 225 [place] 2021-05-03 2021-05-03 Outpatient R [facility] [id number] Univers 09:40:00 09:40:00 [id number] ity of [facility] 2021-04-16 2021-04-16 Orders Doctor EWELINA 1.2.840.114 [id number] Univers 00:00:00 00:00:00 Only Unassigned, [place] [id number] ity of [place] [facility] 4.2.7.2.686 Javier as [phone] [facility] 009 Branch 2021-03-17 2021-03-17 Telephone EWELINA Nava [id number] Univers 00:00:00 00:00:00 Aneatrice [place] [id number] ity of [facility] 4.2.7.2.686 Javier as [id number] [facility] 019 Branch 2021-03-16 2021-03-16 Emergency Palmer [facility] 1.2.840.114 [id number] Univers 20:08:00 23:24:00 Fabrice Har[place] [id number] i [place] [id number] [facility] 084 Branch 2021-03-14 2021-03-14 Urgent Lydia Desouza [facility] 1.2.840.114 [id number] Univers 18:59:34 20:19:13 Care Unknown, Attending [facility] [id number] ity [facility] 4.2.7.2.686 Javier as Prem?Blea [id number] Md dical [address] Medical Office [facility] 2021-03-14 2021-03-14 Outpatient R [facility] [id number] Univers 19:00:00 19:00:00 [id number] [facility] 2021-03-14 2021-03-14 Outpatient R UNKNOWN, [facility] [id number] Univers 19:00:00 19:00:00 [facility] 2021-02-19 2021-02-19 Emergency Patel, [facility] [id number] Univers 10:49:00 14:48:00 Anali Har[place] [id number] i [place] [id number] [address] 2019-03-09 2019-03-09 [facility] 1.2.840.114 [id number] 00:00:00 00:00:00 Yehuda Harrell [id number] [place] 4.2.7.2.686 Professio [id number] [address] 2019-03-09 2019-03-09 [facility] 1.2.840.114 [id number] Univers 00:00:00 00:00:00 Yehuda Harrell [id number] ity [facility] [place] [id number] [address] Results Test Description Test Time Test Comments Results Result Comments Source URINALYSIS 2021-03-17 03:22:48 Test Item Value Reference Range Interpretation Comme nts APPEARANCE (test code = Hazy Clear A 8858773709) COLOR (test code = 1607963044) Yellow Yellow PH (test code = 0399111004) 4.8-8.0 SP GRAVITY (test code = 1.003-1.030 4510521967) GLU U QUAL (test code = Normal Normal 7397398802) BLOOD (test code = 2848719560) Negative Negative Interference from ascorbic acid may cause false negative results. KETONES (test code = 2019268553) 5 mg/dL Negative A PROTEIN (test code = 2887-8) Negative Negative UROBILIN (test code = 4.0 mg/dL Normal A 8757610424) BILIRUBIN (test code = Negative Negative 6945063150) NITRITE (test code = 9837462973) Negative Negative [place] (test code = Negative Negative 3219435095) RBC/HPF (test code = 5484564331) See_Comment [Automated message] The system which ge nerated this result transmit sherice reference range: 0 - 3 HP F. The reference range was not used to interpret th is result as normal/abnormal . WBC/HPF (test code = 8982408793) <1 See_Comment [Automated message] The system which ge nerated this result transmit sherice reference range: 0 - 5 HP F. The reference range was not used to interpret th is result as normal/abnormal . BACTERIA (test code = Few Negative A 0696573963) SQ EPITH (test code = HPF 1209162705) Lab Interpretation (test code = Abnormal 64118-9) [facility]48 Test Item Value Reference Range Interpretation Comments APPEARANCE (test code = Hazy Clear A 9359595150) COLOR (test code = Yellow Yellow 9333031201) PH (test code = 4.8-8.0 9288660587) SP GRAVITY (test code = 1.003-1.030 0842177499) GLU U QUAL (test code = Normal Normal 9613962391) BLOOD (test code = Negative Negative 2027953284) KETONES (test code = 5 mg/dL Negative A 1378996355) PROTEIN (test code = Negative Negative 2887-8) UROBILIN (test code = 4.0 mg/dL Normal A 9798718640) BILIRUBIN (test code = Negative Negative 4515820931) NITRITE (test code = Negative Negative 0232941392) [place] (test code = Negative Negative 1458202455) RBC/HPF (test code = See_Comment [Autom ated message] 0105826299) The system [employer] generated this result transmit sherice reference range : 0 - 3 HPF. The refe rence range was not u sed to interpret th is result as normal/abnormal . WBC/HPF (test code = <1 See_Comment [Autom ated message] 0492534398) The system [employer] generated this result transmit sherice reference range : 0 - 5 HPF. The refe rence range was not u sed to interpret th is result as normal/abnormal . BACTERIA (test code = Few Negative A 8285838696) SQ EPITH (test code = HPF 4258909752) Lab Interpretation (test Abnormal code = 89439-2) [facility] [id number] 02:45:00 Test Item Value Reference Interpretation Comments Range TROPONIN I (test 0.002 ng/mL See_Comment [Automated code = 0327681482) message] The system which generated this result [...] biotin. Lab Interpretation Normal (test code = 18070-9) [facility] [id number] 02:45:00 Test Item Value Reference Range Interpretation Comments TROPONIN I (test code = 0.002 ng/mL See_Comment [Au tomated 5623589763) message] The sy stem which generated this result transmitted reference range : <=0.034. The reference range was not used to interpret this result as normal/abnormal . LYNDSAY (test code = LYNDSAY) Lab Interpretation Normal (test code = 06874-0) [facility] [id number] 02:41:57 Test Item Value Reference Range Interpretation Comments NT-proBNP (test code 169 pg/mL See_Comment H [Autom ated = 9713012761) message] The system which generated this result transmitted reference range : <=125. The reference range was not used to interpret this result as normal/abnormal . LYNDSAY (test code = LYNDSAY) Biotin has been reported to cause a negative bias, interpret results relative to patient's use of biotin. Lab Interpretation Abnormal (test code = 80093-5) [facility] [id number] 02:41:57 Test Item Value Reference Range Interpretation Comments NT-proBNP (test code = 169 pg/mL See_Comment H [Aut omated message] 0357871086) The system [employer] generated this result transmit sherice reference range : <=125. The refe rence range was not u sed to interpret th is result as normal/abnormal . LYNDSAY (test code = LYNDSAY) Lab Interpretation (test Abnormal code = 69549-0) [facility]. METABOLIC PANEL (92125)2021-03-17 02:09:13 Test Item Value Reference Range Interpretation Comments NA (test code = 137 mmol/L 135-145 2209300466) K (test code = 4.2 mmol/L 3.5-5.0 9131576778) CL (test code = 102 mmol/L 98-108 0511755290) CO2 TOTAL (test code = 25 mmol/L 23-31 9395515898) AGAP (test code = 2-16 9274579152) BUN (test code = 18 mg/dL 7-23 5564671857) GLUCOSE (test code = 144 mg/dL 70-110 H 9017953460) CREATININE (test code = 0.77 mg/dL 0.50-1.04 5418151940) TOTAL BILI (test code = 0.4 mg/dL 0.1-1.1 7528189181) CALCIUM (test code = 8.9 mg/dL 8.6-10.6 7197418361) T PROTEIN (test code = 6.8 g/dL 6.3-8.2 1899752153) ALBUMIN (test code = 3.9 g/dL 3.5-5.0 5512240775) ALK PHOS (test code = 84 U/L 34-122 8572392089) ALTv (test code = 13 U/L 35 1742-6) AST(SGOT) (test code = 17 U/L 13-40 9338392339) eGFR (test code = mL/min/1.73m2 3007904852) LYNDSAY (test code = LYNDSAY) Association of [...] tests). Lab Interpretation Abnormal (test code = 17156-3) [facility]. METABOLIC PANEL (58283)2021-03-17 02:09:13 Test Item Value Reference Range Interpretation Comments NA (test code = 5070520929) 137 mmol/L 135-145 K (test code = 2733791320) 4.2 mmol/L 3.5-5.0 CL (test code = 8585091810) 102 mmol/L 98-108 CO2 TOTAL (test code = 3201324826) 25 mmol/L 23-31 AGAP (test code = 1072729804) 2-16 BUN (test code = 8647275536) 18 mg/dL 7-23 GLUCOSE (test code = 8919959823) 144 mg/dL 70-110 H CREATININE (test code = 0.77 mg/dL 0.50-1.04 3322582526) TOTAL BILI (test code = 0.4 mg/dL 0.1-1.0 6603525231) CALCIUM (test code = 1190169092) 8.9 mg/dL 8.6-10.6 T PROTEIN (test code = 3189106912) 6.8 g/dL 6.3-8.2 ALBUMIN (test code = 5522289819) 3.9 g/dL 3.5-5.0 ALK PHOS (test code = 9761161489) 84 U/L 34-122 ALTv (test code = 1742-6) 13 U/L 5-35 AST(SGOT) (test code = 6627199961) 17 U/L 13-40 eGFR (test code = 2380133856) mL/min/1.73m2 LYNDSAY (test code = LYNDSAY) Lab Interpretation (test code = Abnormal 74793-7) [facility] WITH [id number] 01:56:33 Test Item Value Reference Range Interpretation Comments WBC (test code = See_Comment H [Automated 2090-2) message] The sy stem which generated this result transmitted reference range : 4.30 - 11.10 10*3/?L. The reference range was not used to interpret this result as normal/abnormal . RBC (test code = See_Comment [Automated 689-8) message] The sy stem which generated this [...] (test code = 55.5 fL 39.0-49.9 H 13435-7) RDW-CV (test code = 18.9 % 12.0-15.5 H 788-0) PLT (test code = See_Comment H [Automated 777-3) message] The sy stem which generated this result transmitted reference range : 166 - 358 10*3/ ?L. The reference r zoe was not used to interpret this result as normal/abnormal . MPV (test code = 8.2 fL 9.5-12.9 L 65785-5) NRBC/100 WBC (test See_Comment [Automat ed code = 9556523481) message] The system which generated this result transmitted reference range : 0.0 - 10.0 /100 WBCs. The refer ence range was not u sed to interpret th is result as normal/abnormal . NRBC x10^3 (test code <0.01 See_Comment [Auto mated = 0541582577) message] The s ystem which generated this result transmitted reference range : 10*3/?L. The reference range was not used to interpret this result as normal/abnormal . GRAN MAT (NEUT) % 61.7 % (test code = 770-8) IMM GRAN % (test code 0.80 % = 1485734541) LYMPH % (test code = 28.5 % 736-9) MONO % (test code = 6.3 % 5905-5) EOS % (test code = 1.8 % 713-8) BASO % (test code = 0.9 % 706-2) GRAN MAT x10^3(ANC) 7.31 10*3/uL 1.88-7.09 H (test code = 8363870290) IMM GRAN x10^3 (test 0.09 10*3/uL 0.00-0.06 H code = 7862658103) LYMPH x10^3 (test code 3.38 10*3/uL 1.32-3.29 H = 731-0) MONO x10^3 (test code 0.75 10*3/uL 0.33-0.92 = 742-7) EOS x10^3 (test code = 0.21 10*3/uL 0.03-0.39 711-2) BASO x10^3 (test code 0.11 10*3/uL 0.01-0.07 H = 704-7) Lab Interpretation Abnormal (test code = 32619-6) [facility] WITH [id number] 01:56:33 Test Item Value Reference Range Interpretation [...] (test code = 55.5 fL 39.0-49.9 H 15252-8) RDW-CV (test code = 18.9 % 12.0-15.5 H 788-0) PLT (test code = See_Comment H [Automated 777-3) message] The sy stem which generated this result transmitted reference range : 166 - 358 10*3/ ?L. The reference r zoe was not used to interpret this result as normal/abnormal . MPV (test code = 8.2 fL 9.5-12.9 L 74110-1) NRBC/100 WBC (test See_Comment [Automat ed code = 3110608016) message] The system which generated this result transmitted reference range : 0.0 - 10.0 /100 WBCs. The refer ence range was not u sed to interpret th is result as normal/abnormal . NRBC x10^3 (test code <0.01 See_Comment [Auto mated = 7232007785) message] The s [employer] which generated this result transmitted reference range : 10*3/?L. The reference range was not used to interpret this result as normal/abnormal . GRAN MAT (NEUT) % 61.7 % (test code = 770-8) IMM GRAN % (test code 0.80 % = 8832055787) LYMPH % (test code = 28.5 % 736-9) MONO % (test code = 6.3 % 5905-5) EOS % (test code = 1.8 % 713-8) BASO % (test code = 0.9 % 706-2) GRAN MAT x10^3(ANC) 7.31 10*3/uL 1.88-7.09 H (test code = 6838651392) IMM GRAN x10^3 (test 0.09 10*3/uL 0.00-0.06 H code = 1924411854) LYMPH x10^3 (test code 3.38 10*3/uL 1.32-3.29 H = 731-0) MONO x10^3 (test code 0.75 10*3/uL 0.33-0.92 = 742-7) EOS x10^3 (test code = 0.21 10*3/uL 0.03-0.39 711-2) BASO x10^3 (test code 0.11 10*3/uL 0.01-0.07 H = 704-7) Lab Interpretation Abnormal (test code = 69445-9) [facility]ID [facility]2021-03-17 01:38:12 Test Item Value Reference Range Interpretation Comments SARS-CoV-2 Rapid ID NOW Not Detected Not Detected (test code = 77524-4) LYNDSAY (test code = LYNDSAY) ID NOW COVID-19 Assay is an isothermal nucleic acid amplification test intended for the qualitative detection of nucleic acid from SARS-CoV-2 viral RNA in nasopharyngeal (OPTICIAN APPRENTICE) specimens. It is used under Emergency Use [...] indicated. Lab Interpretation Normal (test code = 06606-3) [facility] NOW [facility]APID TESTING)2021-03-17 01:38:12 Test Item Value Reference Range Interpretation Comments SARS-CoV-2 Rapid ID NOW (test Not Detected Not Detected code = 55090-7) LYNDSAY (test code = LYNDSAY) Lab Interpretation (test code = Normal 30991-7) [facility]21-[facility]-19 17:42:45 Test Item Value Reference Range Interpretation Comments SARS-CoV-2 Rapid ID NOW Not Detected Not Detected (test code = 70055-9) LYNDSAY (test code = LYNDSAY) ID NOW COVID-19 Assay is an isothermal nucleic acid amplification test intended for the qualitative detection of nucleic acid from SARS-CoV-2 viral RNA in nasopharyngeal (OPTICIAN APPRENTICE) specimens. It is used under Emergency Use [...] indicated. Lab Interpretation Normal (test code = 36371-1) [facility] PELVIS W [id number] 17:24:55Thickening of the gastric antrum and duodenal bulb could be fromunderdistention, the differential would include sequela of peptic ulcerdisease. No findings of ulcer perforation. Otherwise, no acute intra- abdominal or pelvic abnormality. Stable thickening and nodularity of the left adrenal gland. RL: 1146 Patient name: EUSEBIA ONTIVEROSB: 1970 51 years [...] nodularity of the left adrenal gland.RL: 8722 [facility]ysis[facility] 17:03:40 Test Item Value Reference Range Interpretation Comments APPEARANCE (test code = Hazy Clear A 3894465216) COLOR (test code = Mabel Yellow A 6045187380) PH (test code = 4.8-8.0 1752516616) SP GRAVITY (test code = 1.003-1.030 H 8555557847) GLU U QUAL (test code = Normal Normal 4114569950) BLOOD (test code = Negative Negative 0238186798) KETONES (test code = 5 mg/dL Negative A 9186639355) PROTEIN (test code = 30 mg/dL Negative A 2887-8) UROBILIN (test code = 4.0 mg/dL Normal A 6771855038) BILIRUBIN (test code = 4 mg/dL Negative A 7326463581) NITRITE (test code = Negative Negative 9330670421) LEUK GRUPO (test code = Negative Negative 4731027964) RBC/HPF (test code = See_Comment H [Autom ated message] 3258997834) The system [employer] generated this result transmit sherice reference range : 0 - 3 HPF. The refe rence range was not u sed to interpret th is result as normal/abnormal . WBC/HPF (test code = See_Comment H [Autom ated message] 9398961468) The system [employer] generated this result transmit sherice reference range : 0 - 5 HPF. The refe rence range was not u sed to interpret th is result as normal/abnormal . BACTERIA (test code = Few Negative A 2676782034) MUCOUS (test code = Moderate Negative LPF A 5478314030) SQ EPITH (test code = HPF 4304637893) CA OXALATE (test code = See_Comment H [Au tomated message] 2808261649) The system [employer] generated this result transmit sherice reference range : <=1 HPF. The refere nce range was not u sed to interpret th is result as normal/abnormal . Ictotest (test code = Negative 1579999863) Lab Interpretation (test Abnormal code = 73163-2) [facility] Metabolic [id number] 16:34:55 Test Item Value Reference Range Interpretation Comments NA (test code = 139 mmol/L 135-145 6373400858) K (test code = 4.3 mmol/L 3.5-5.0 7302786147) CL (test code = 105 mmol/L 98-108 4702191038) CO2 TOTAL (test code 26 mmol/L 23-31 = 9046105655) AGAP (test code = 2-16 3108503421) BUN (test code = 11 mg/dL 7-23 2058888605) GLUCOSE (test code = 95 mg/dL 70-110 8242794161) CREATININE (test code 0.70 mg/dL 0.50-1.04 = 6205541063) TOTAL BILI (test code 0.6 mg/dL 0.1-1.1 = 6237551202) CALCIUM (test code = 8.9 mg/dL 8.6-10.6 1073454224) T PROTEIN (test code 7.7 g/dL 6.3-8.2 = 8969445002) ALBUMIN (test code = 4.1 g/dL 3.5-5.0 8947565346) ALK PHOS (test code = 79 U/L 34-122 6555052828) ALTv (test code = 10 U/L 5-35 1742-6) AST(SGOT) (test code 22 U/L 13-40 = 7135439916) eGFR (test code = mL/min/1.73m2 7829042452) LYNDSAY (test code = LYNDSAY) Association of [...] or urine or abnormalities in imaging tests). [facility]land[facility], [id number] 16:34:14 Test Item Value Reference Range Interpretation Comments LIPASE (test code = 4556017065) 45 U/L 0-220 Lab Interpretation (test code = Normal 09934-2) [facility] with [id number] 16:21:12 Test Item Value Reference Range Interpretation [...] (test code = 54.4 fL 39.0-49.9 H 61276-7) RDW-CV (test code = 18.3 % 12.0-15.5 H 788-0) PLT (test code = See_Comment H [Automated 777-3) message] The sy stem which generated this result transmitted reference range : 166 - 358 10*3/ ?L. The reference r zoe was not used to interpret this result as normal/abnormal . MPV (test code = 8.5 fL 9.5-12.9 L 85925-2) NRBC/100 WBC (test See_Comment [Automat ed code = 5168551054) message] The system which generated this result transmitted reference range : 0.0 - 10.0 /100 WBCs. The refer ence range was not u sed to interpret th is result as normal/abnormal . NRBC x10^3 (test code <0.01 See_Comment [Auto mated = 8135568526) message] The s [employer]stem which generated this result transmitted reference range : 10*3/?L. The reference range was not used to interpret this result as normal/abnormal . GRAN MAT (NEUT) % 78.3 % (test code = 770-8) IMM GRAN % (test code 0.40 % = 8369347608) LYMPH % (test code = 15.4 % 736-9) MONO % (test code = 4.8 % 5905-5) EOS % (test code = 0.1 % 713-8) BASO % (test code = 1.0 % 706-2) GRAN MAT x10^3(ANC) 7.15 10*3/uL 1.88-7.09 H (test code = 1198271718) IMM GRAN x10^3 (test 0.04 10*3/uL 0.00-0.06 code = 2333585110) LYMPH x10^3 (test code 1.41 10*3/uL 1.32-3.29 = 731-0) MONO x10^3 (test code 0.44 10*3/uL 0.33-0.92 = 742-7) EOS x10^3 (test code = <0.03 0.03-0.39 L 711-2) BASO x10^3 (test code 0.09 10*3/uL 0.01-0.07 H = 704-7) Lab Interpretation Abnormal (test code = 96658-9) [facility]"
[2021-11-13] MEDS ORDERED: NA CHLORIDE 0.9% 1,000 ML ONE (22:16)
[2021-11-13] MEDS ORDERED: LEVETIRACETAM 500 MG/5 ML VIAL IV ONE (22:16)
[2021-11-13] MEDS ORDERED: NA CHLORIDE 0.9% 100 ML IV ONE (22:16)
[2021-11-13] MEDS ORDERED: LORazepam 2 MG/ML VIAL ONE (22:16)
[2021-11-13] MEDS ORDERED: ONDANSETRON 4 MG/2 ML VIAL ONE (22:40)
[2021-11-13] MEDS ORDERED: MORPHINE 4 MG/ML SYR ONE (22:40)
[2021-11-13 22:41] LABS: Absolute Lymphocytes (CBC) 2.5 K/uL (0.7-4.9); Hematocrit 38.2 % (36.0-45.0); Lymphocytes % 32.4 % (15.3-44.8); MPV 6.4 fL (7.6-11.3); RBC Red Blood Cell Count 4.53 M/uL (3.86-4.86)
[2021-11-13 23:04] LABS: ALT/SGPT 65 U/L (12-78); AST/SGOT 31 U/L (15-37); Albumin 3.4 g/dL (3.4-5.0); Alkaline Phosphatase 431 U/L (45-117); BUN Blood Urea Nitrogen 9 mg/dL (7-18); Bicarbonate 24 mmol/L (21-32); Bilirubin Total 0.2 mg/dL (0.2-1.0); Glucose Level 81 mg/dL (74-106); Magnesium 2.3 mg/dL (1.8-2.4); NT PRO-BNP 1004 pg/mL (<125); Potassium 3.8 mmol/L (3.5-5.1); Protein, Total 7.1 g/dL (6.4-8.2); Sodium Level 140 mmol/L (136-145); Troponin High Sensitivity 10.6 pg/mL (<58.9)
[2021-11-13 23:11] LABS: Urine Blood Trace-lysed (Negative); Urine Glucose Negative (Negative); Urine Protein Negative (Negative); Urine Specific Gravity <=1.005 (1.005-1.030); Urine pH 6.5 (5.0-7.0)
[2021-11-13 23:11] LABS: Bilirubin Direct < 0.1 mg/dL (0-0.2)
--- NOTE | 2021-11-13 23:44 | ER ---
Nurse's Notes [facility] Name: Heather Coon Age: 51 yrs Sex: Female : 1970 Arrival Date: 11/13/2021 Time: 21:59 Bed 13 Private MD: Diagnosis: Epileptic seizures related to external causes;Epileptic seizures related to external causes, not intractable;Acute maxillary sinusitis;Cocaine abuse Presentation: 11/13 21:59 Chief complaint: EMS states: EMS called by patient's significant other for seizures x3 lp1 lasting about 20-30 seconds, EMS witnessed seizure on arrival; Patient has hx of seizures, A/O x3 on arrival to ED. Coronavirus screen: At this time, the client does not indicate any symptoms associated with coronavirus-19. Ebola Screen: No symptoms or risks identified at this time. Initial Sepsis Screen: Does the patient meet any 2 criteria? No. Patient's initial sepsis screen is negative. Does the patient have a suspected source of infection? No. Patient's initial sepsis screen is negative. Risk Assessment: Do you want to hurt yourself or someone else? Patient reports no desire to harm self or others. Onset of symptoms was November 13, 2021. 21:59 Method Of Arrival: EMS: [facility] lp1 21:59 Acuity: ANDER 2 lp1 ASSISTANT PRINCIPAL: 11/14 00:12 LMP N/A - Post-menopause lp1 Historical: - Allergies: 11/13 22:01 Green Tea; lp1 - Home Meds: 22:01 levetiracetam Oral [Active]; Prozac Oral [Active]; lp1 - PMHx: 22:01 Anxiety; Bipolar disorder; Cancer-Cervical; Chronic pain; Depression; Diverticulitis; lp1 Herniated Back Disc; Hypertension; intestinal mass; Myocardial infarction; pt reports hx of seizures; Spastic Muscles; stroke; - PSHx: 22:01 cervical fusion; Cholecystectomy; Tonsillectomy; lp1 - Immunization history:: Adult Immunizations up to date. - Social history:: Smoking status: Patient reports the use of cigarette tobacco products, smokes one pack cigarettes per day. - Family history:: not pertinent. Screenin:02 Abuse screen: Denies threats or abuse. Denies injuries from another. Nutritional lp1 screening: No deficits noted. Tuberculosis screening: No symptoms or risk factors identified. 22:30 Fall Risk Total Costello Fall Scale indicates High Risk Score (45 or more points). Fall lp1 prevention measures have been instituted. Side Rails Up X 2 Family Present and informed to notify staff if the need to leave the bedside As available patient and family educated on Fall Prevention Program and Strategies. Assessment: 22:00 General: Appears in no apparent distress. Behavior is cooperative, appropriate for age. lp1 Pain: Complains of pain in head Pain currently is 10 out of 10 on a pain scale. Quality of pain is described as pressure. Neuro: Level of Consciousness is awake, alert, obeys commands, Oriented to person, place, time, situation, Speech is normal, Facial symmetry appears normal, Pupils are PERRLA, Intact. Cardiovascular: Patient's skin is warm and dry. Rhythm is regular. Respiratory: Airway is patent Respiratory effort is even, unlabored. GI: Abdomen is non-distended, Reports nausea. : No signs and/or symptoms were reported regarding the genitourinary system. EENT: No signs and/or symptoms were reported regarding the EENT system. Derm: Skin is pink, warm \T\ dry. Musculoskeletal: No deficits noted. 22:00 Reassessment: Assisted patient with using bedpan. lp1 23:00 Reassessment: Patient vomiting at this time, 100 ml in emesis bag. lp1 23:39 Reassessment: Patient reports nausea relief at this time, some head relief with pain lp1 medication administered; aware of waiting for results. 11/14 00:20 Reassessment: Patient refused COVID swab. lp1 00:43 Reassessment: Patient reports continued nausea at this time; Provider notified. lp1 01:35 Reassessment: Patient appears in no apparent distress at this time. Assisted patient lp1 with dressing for discharge; Demonstrates understanding of discharge instructions. Vital Signs: 11/13 21:59 BP 154 / 94; Pulse 95; Resp 20; Temp 98.4(TE); Pulse Ox 98% on R/A; Weight 77.11 kg lp1 (R); Height 5 ft. 3 in. (160.02 cm); Pain 10/10; 22:53 BP 143 / 87; Pulse 105; Resp 20; Pulse Ox 99% on R/A; lp1 23:30 BP 133 / 89; Pulse 91; Resp 20; Pulse Ox 96% on R/A; lp1 11/14 00:15 BP 121 / 74; Pulse 92; Resp 22; Pulse Ox 94% on R/A; lp1 01:00 BP 115 / 73; Pulse 93; Resp 20; Pulse Ox 95% on R/A; lp1 11/13 21:59 Body Mass Index 30.11 (77.11 kg, 160.02 cm) lp1 Nicole Coma Score: 11/13 22:02 Eye Response: spontaneous(4). Verbal Response: oriented(5). Motor Response: obeys lp1 commands(6). Total: 15. 11/14 01:00 Eye Response: spontaneous(4). Verbal Response: oriented(5). Motor Response: obeys lp1 commands(6). Total: 15. NIH Stroke Scale Scores: 11/13 22:23 NIHSS Score: 0 [facility] ED Course: 21:59 Patient arrived in ED. lp1 22:00 Derrick Santillan MD is Attending Physician. [facility] 22:01 Triage completed. lp1 22:02 Arm band placed on. lp1 22:02 Patient has correct armband on for positive identification. Placed in gown. Bed in low lp1 position. Seizure precautions initiated. laboratory monitor on. Pulse ox on. NIBP on. 22:25 Inserted saline lock: 18 gauge in right forearm, using aseptic technique. Blood lp1 collected. 22:31 Nadine Baldwin, BETH is Primary Nurse. lp1 23:02 XRAY Chest (1 view) In Process Unspecified. EDMS 23:21 CT Head Brain wo Cont In Process Unspecified. EDMS 23:43 Javier Ireland MD is Referral Physician. [facility] 11/14 00:12 No provider procedures requiring assistance completed. lp1 01:36 IV discontinued, No redness/swelling at site. Pressure dressing applied. lp1 Administered Medications: 11/13 22:32 Drug: NS 0.9% 1000 ml Route: IV; Rate: 125 ml/hr; Site: right forearm; lp1 11/14 01:39 Follow up: IV Status: IV converted to saline lock; IV Intake: 500ml lp1 11/13 22:32 Drug: Ativan (LORazepam) 1 mg Route: IVP; Site: right forearm; lp1 23:05 Follow up: Response: No adverse reaction; Marked relief of symptoms lp1 22:32 Drug: Keppra (levETIRAcetam) 1000 mg Route: IV; Rate: per protocol; Site: right forearm;lp1 23:00 Follow up: IV Status: Completed infusion; IV Intake: 100ml lp1 23:04 Drug: morphine 4 mg Route: IVP; Site: right forearm; lp1 11/14 00:05 Follow up: Response: Pain is decreased lp1 11/13 23:05 Drug: Zofran (Ondansetron) 4 mg Route: IVP; Site: right forearm; lp1 11/14 00:05 Follow up: Response: Nausea is decreased lp1 00:42 Drug: Rocephin (cefTRIAXone) 1 grams Route: IV; Rate: per protocol; Site: right forearm;lp1 01:00 Follow up: IV Status: Completed infusion; IV Intake: 50ml lp1 00:42 Drug: Augmentin (Amoxicillin-Clavulanate) 875 mg Route: PO; lp1 01:38 Follow up: Response: No adverse reaction lp1 01:20 Drug: Zofran (Ondansetron) 4 mg Route: IVP; Site: right forearm; lp1 01:38 Follow up: Response: Medication administered at discharge. lp1 Intake: 11/13 23:00 IV: 100ml; Total: 100ml. lp1 11/14 01:00 IV: 50ml; Total: 150ml. lp1 01:39 IV: 500ml; Total: 650ml. lp1 Outcome: 11/13 23:43 Discharge ordered by MD. avina 11/14 01:36 Discharged to home via wheelchair, with significant other. lp1 Condition: good Discharge instructions given to patient, Instructed on discharge instructions, follow up and referral plans. medication usage, Demonstrated understanding of instructions, follow-up care, medications, Prescriptions given X 2. 01:39 Patient left the ED. lp1 NIH Stroke Scale - NIH Stroke Score Date: 11/13/2021 Time: :23 Total Score = 0 1a. Level of Consciousness (LOC) - 0(Alert) 1b. Level of Consciousness (LOC) (Month \T\ Age) - 0(Both) 1c. LOC Commands (Open \T\ Closes Eyes/Public Affairs Specialist) - 0(Both) 2. Best Gaze (Lateral Gaze Paresis) - 0(Normal) 3. Visual Field Loss - 0(No visual loss) 4. Facial Palsy - 0(Normal) 5a. Left Arm: Motor (10-second hold) - 0(No drift) 5b. Right Arm: Motor (10-second hold) - 0(No drift) 6a. Left Leg: Motor (5-second hold - always test supine) - 0(No drift) 6b. Right Leg: Motor (5-second hold - always test supine) - 0(No drift) 7. Limb Ataxia (finger/nose \T\ heel/rm - test with eyes open) - 0(Absent) 8. Sensory Loss (pinprick arms/legs/face) - 0(Normal) 9. Best Language: Aphasia (description/naming/reading) - 0(No aphasia) 10. Dysarthria (speech clarity - read or repeat words) - 0(Normal) 11. Extinction and Inattention (visual/tactile/auditory/spatial/personal) - 0(No abnormality) Initials: fabrice Signatures: Dispatcher [employer] EDMS Derrick Santillan MD MD cha Pena, Laura, RN RN lp1 Corrections: (The following items were deleted from the chart) 11/13 22:03 21:59 Chief complaint: EMS states: EMS called by patient's significant other lp1 for seizure, EMS witnessed seizure on arrival; Patient has hx of seizures, A/O x3 on arrival to ED lp1
--- NOTE | 2021-11-13 23:44 | EDPHYS ---
Physician Documentation [facility] Name: Heather Coon Age: 51 yrs Sex: Female : 1970 Arrival Date: 11/13/2021 Time: 21:59 Bed 13 Private MD: Derrick Mota HPI: 11/13 22:23 This 51 yrs old Female presents to ER via EMS with complaints of Seizure. fabrice 22:23 The patient presents with a history of multiple seizures, an unknown number. The fabrice patient presents. Character of seizure(s): Loss of consciousness: it is not known if the patient experienced loss of consciousness, Motor activity: generalized. Seizure onset: today. Context: the seizure(s) was witnessed, by family. Seizure Hx: Cause: unknown, Last seizure: The patient's last seizure "not sure". Associated injury: The patient did not suffer any apparent associated injury. EMS care: none. Current symptoms: Currently, the patient is not experiencing any symptoms. The patient has experienced similar episodes in the past, multiple times. 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 - Social history:: Smoking status: Patient reports the use of cigarette tobacco products, smokes one pack cigarettes per day. - Family history:: not pertinent. ROS: 22:23 Constitutional: Negative for fever, chills, and weight loss, Eyes: Negative for injury, fabrice pain, redness, and discharge, ENT: Negative for injury, pain, and discharge, Neck: Negative for injury, pain, and swelling, Cardiovascular: Negative for chest pain, palpitations, and edema, Respiratory: Negative for shortness of breath, cough, wheezing, and pleuritic chest pain, Abdomen/GI: Negative for abdominal pain, nausea, vomiting, diarrhea, and constipation, Back: Negative for injury and pain, : Negative for injury, bleeding, discharge, and swelling, MS/Extremity: Negative for injury and deformity, Skin: Negative for injury, rash, and discoloration, Psych: Negative for depression, anxiety, suicide ideation, homicidal ideation, and hallucinations, Allergy/Immunology: Negative for hives, rash, and allergies, Endocrine: Negative for neck swelling, polydipsia, polyuria, polyphagia, and marked weight changes, Hematologic/Lymphatic: Negative for swollen nodes, abnormal bleeding, and unusual bruising. 22:23 Neuro: Positive for headache, seizure activity. Exam: 22:23 Constitutional: This is a well developed, well nourished patient who is awake, alert, fabrice and in no acute distress. Head/Face: Normocephalic, atraumatic. Eyes: Pupils equal round and reactive to light, extra-ocular motions intact. Lids and lashes normal. Conjunctiva and sclera are non-icteric and not injected. Cornea within normal limits. Periorbital areas with no swelling, redness, or edema. ENT: Nares patent. No nasal discharge, no septal abnormalities noted. Tympanic membranes are normal and external auditory canals are clear. Oropharynx with no redness, swelling, or masses, exudates, or evidence of obstruction, uvula midline. Mucous membranes moist. Neck: Trachea midline, no thyromegaly or masses palpated, and no cervical lymphadenopathy. Supple, full range of motion without nuchal rigidity, or vertebral point tenderness. No Meningismus. Chest/axilla: Normal chest wall appearance and motion. Nontender with no deformity. No lesions are appreciated. Cardiovascular: Regular rate and rhythm with a normal S1 and S2. No gallops, murmurs, or rubs. Normal PMI, no JVD. No pulse deficits. Respiratory: Lungs have equal breath sounds bilaterally, clear to auscultation and percussion. No rales, rhonchi or wheezes noted. No increased work of breathing, no retractions or nasal flaring. Abdomen/GI: Soft, non-tender, with normal bowel sounds. No distension or tympany. No guarding or rebound. No evidence of tenderness throughout. Back: No spinal tenderness. No costovertebral tenderness. Full range of motion. Pelvic Exam: Normal external genitalia. Speculum exam with closed cervical os, no discharge or bleeding noted. Bimanual exam with normal adnexa, no adnexal or cervical motion tenderness. Normal uterus. Female : Normal external genitalia. Skin: Warm, dry with normal turgor. Normal color with no rashes, no lesions, and no evidence of cellulitis. MS/ Extremity: Pulses equal, no cyanosis. Neurovascular intact. Full, normal range of motion. Psych: Awake, alert, with orientation to person, place and time. Behavior, mood, and affect are within normal limits. 22:23 Neuro: Orientation: is normal, appropriate for stated age, no acute changes, Mentation: is normal, appropriate for stated age, no acute changes, Memory: is normal, appropriate for stated age, no acute changes, Cranial nerves: grossly normal, is grossly normal based on the patient's age, no acute changes, Cerebellar function: is grossly normal, is grossly normal based on the patient's age, no acute changes, Motor: moves all fours, strength is normal, Sensation: no obvious gross deficits, appropriate no acute changes, Gait: not tested. Babinski testing is normal, seizure activity, is not displayed by the patient. 22:27 Neck: ROM/movement: is normal, is supple, without pain, no range of motions fabrice limitations, no meningismus, no nuchal rigidity, negative Brudzinski's sign, negative Kernig's sign, no acute changes, limited range of motion, is not appreciated, Meningeal signs: are not present, Kernig's sign is negative, Brudzinski's sign is negative, nuchal rigidity, is not appreciated, Lymph nodes: no appreciated lymphadenopathy. 22:57 ECG was reviewed by the Attending Physician. fabrice Vital Signs: 21:59 BP 154 / 94; Pulse 95; Resp 20; Temp 98.4(TE); Pulse Ox 98% on R/A; Weight 77.11 kg lp1 (R); Height 5 ft. 3 in. (160.02 cm); Pain 10/10; 22:53 BP 143 / 87; Pulse 105; Resp 20; Pulse Ox 99% on R/A; lp1 23:30 BP 133 / 89; Pulse 91; Resp 20; Pulse Ox 96% on R/A; [facility] 11/14 00:15 BP 121 / 74; Pulse 92; Resp 22; Pulse Ox 94% on R/A; lp1 01:00 BP 115 / 73; Pulse 93; Resp 20; Pulse Ox 95% on R/A; 1 11/13 21:59 Body Mass Index 30.11 (77.11 kg, 160.02 cm) lp1 NIH Stroke Scale Scores: 11/13 22:23 NIHSS Score: 0 [facility] [place] Coma Score: 22:02 Eye Response: spontaneous(4). Verbal Response: oriented(5). Motor Response: obeys lp1 commands(6). Total: 15. 11/14 01:00 Eye Response: spontaneous(4). Verbal Response: oriented(5). Motor Response: obeys lp1 commands(6). Total: 15. MDM: 11/13 22:00 Patient medically screened. [facility] 22:26 Differential diagnosis: cerebral vascular accident, cardiac arrhythmia, seizure. Data fabrice reviewed: vital signs, nurses notes, EMS record, lab test result(s), EKG, radiologic studies, CT scan, plain films. Data interpreted: playground monitor: rate is 95 beats/min, rhythm is regular, Pulse oximetry: on room air is 98 %. Test interpretation: by ED physician or midlevel provider: ECG, plain radiologic studies. Counseling: I had a detailed discussion with the patient and/or guardian regarding: the historical points, exam findings, and any diagnostic results supporting the discharge/admit diagnosis, lab results, radiology results. 11/13 22:04 Order name: Basic Metabolic Panel; Complete Time: 23:38 [facility] 11/13 22:04 Order name: CBC with Diff; Complete Time: 23:38 [facility] 11/13 22:04 Order name: LFT's; Complete Time: 23:38 [facility] 11/13 22:04 Order name: Magnesium; Complete Time: 23:38 [facility] 11/13 22:04 Order name: NT PRO-BNP; Complete Time: 23:38 [facility] 11/13 22:04 Order name: PT-INR; Complete Time: 01:08 [facility] 11/13 22:04 Order name: Troponin HS; Complete Time: 23:38 [facility] 11/13 22:04 Order name: XRAY Chest (1 view) [facility] 11/13 22:23 Order name: CT Head Brain wo Cont [facility] 11/13 22:56 Order name: UDS; Complete Time: 01:08 [facility] 11/13 23:11 Order name: Urine Dipstick-Ancillary; Complete Time: 23:38 [facility] 11/13 22:04 Order name: EKG; Complete Time: 22:06 [facility] 11/13 22:04 Order name: Cardiac monitoring; Complete Time: :32 [facility] 11/13 22:04 Order name: EKG - Nurse/Tech; Complete Time: 23:05 [facility] 11/13 22:04 Order name: IV Saline Lock; Complete Time: : [facility] 11/13 22:04 Order name: Labs collected and sent; Complete Time: :32 [facility] 11/13 22:04 Order name: O2 Per Protocol; Complete Time: 22: [facility] 11/13 22:04 Order name: O2 Sat Monitoring; Complete Time: 22: [facility] 11/13 22:04 Order name: Seizure Precautions; Complete Time: 22: [facility] 11/13 22:56 Order name: Urine Dipstick-Ancillary (obtain specimen); Complete Time: 23:05 [facility] EC:57 Rate is 92 beats/min. Rhythm is regular. QRS [place] is Normal. [place] interval is normal. QRS fabrice interval is normal. QT interval is normal. No Q waves. T waves are Normal. Clinical impression: NSR w/ Non-specific ST/T Changes and No evidence of ischemia. Interpreted by me. Reviewed by me. Administered Medications: :32 Drug: NS 0.9% 1000 ml Route: IV; Rate: 125 ml/hr; Site: right forearm; 1 11/14 01:39 Follow up: IV Status: IV converted to saline lock; IV Intake: 500ml [facility] 11/13 22:32 Drug: Ativan (LORazepam) 1 mg Route: IVP; Site: right forearm; lp1 23:05 Follow up: Response: No adverse reaction; Marked relief of symptoms 1 22:32 Drug: Keppra (levETIRAcetam) 1000 mg Route: IV; Rate: per protocol; Site: right forearm;lp1 23:00 Follow up: IV Status: Completed infusion; IV Intake: 100ml lp 23:04 Drug: morphine 4 mg Route: IVP; Site: right forearm; 1 11/14 00:05 Follow up: Response: Pain is decreased [facility] 11/13 23:05 Drug: Zofran (Ondansetron) 4 mg Route: IVP; Site: right forearm; lp1 11/14 00:05 Follow up: Response: Nausea is decreased lp1 00:42 Drug: Rocephin (cefTRIAXone) 1 grams Route: IV; Rate: per protocol; Site: right forearm;lp1 01:00 Follow up: IV Status: Completed infusion; IV Intake: 50ml lp1 00:42 Drug: Augmentin (Amoxicillin-Clavulanate) 875 mg Route: PO; lp1 01:38 Follow up: Response: No adverse reaction lp1 01:20 Drug: Zofran (Ondansetron) 4 mg Route: IVP; Site: right forearm; lp1 01:38 Follow up: Response: Medication administered at discharge. lp1 Disposition Summary: 11/13/21 23:43 Discharge Ordered Location: Home fabrice Problem: new fabrice Symptoms: have improved fabrice Condition: Stable fabrice Diagnosis - Epileptic seizures related to external causes fabrice - Epileptic seizures related to external causes, not intractable fabrice - Acute maxillary sinusitis fabrice - Cocaine abuse fabrice Followup: fabrice - With: Private Physician - When: 2 - 3 days - Reason: Recheck today's complaints, Continuance of care, Re-evaluation by your physician Followup: fabrice - With: - When: 2 - 3 days - Reason: Recheck today's complaints, Continuance of care, Re-evaluation by your physician Discharge Instructions: - Discharge Summary Sheet fabrice - Cocaine Use Disorder fabrice - Bipolar 1 Disorder fabrice - Seizure, Adult fabrice - Sinusitis, Adult fabrice - Substance Use Disorder fabrice - Seizure, Adult, Feln-eo-Wexm fabrice - Managing Bipolar Disorder fabrice - Bipolar 2 Disorder fabrice - Sinusitis, Adult, [id number]-[id number] fabrice - Substance Use Disorder and Mental Illness fabrice Forms: - Medication Reconciliation Form fabrice - Thank You Letter fabrice - Antibiotic Education fabrice - Prescription Opioid Use fabrice Prescriptions: - Keppra 750 mg Oral Tablet - take 1 tablet by ORAL route every 12 hours; 30 tablet; Refills: 0, Product fabrice Selection Permitted - Augmentin 875-125 mg Oral Tablet - take 1 tablet by ORAL route every 12 hours for 10 days; 20 tablet; Refills: 0, fabrice Product Selection Permitted NIH Stroke Scale - NIH Stroke Score Date: 11/13/2021 Time: 22:23 Total Score = 0 1a. Level of Consciousness (LOC) - 0(Alert) 1b. Level of Consciousness (LOC) (Month \\T\\ Age) - 0(Both) 1c. LOC Commands (Open \\T\\ Closes Eyes/Shank Threader) - 0(Both) 2. Best Gaze (Lateral Gaze Paresis) - 0(Normal) 3. Visual Field Loss - 0(No visual loss) 4. Facial Palsy - 0(Normal) 5a. Left Arm: Motor (10-second hold) - 0(No drift) 5b. Right Arm: Motor (10-second hold) - 0(No drift) 6a. Left Leg: Motor (5-second hold - always test supine) - 0(No drift) 6b. Right Leg: Motor (5-second hold - always test supine) - 0(No drift) 7. Limb Ataxia (finger/nose \\T\\ heel/rm - test with eyes open) - 0(Absent) 8. Sensory Loss (pinprick arms/legs/face) - 0(Normal) 9. Best Language: Aphasia (description/naming/reading) - 0(No aphasia) 10. Dysarthria (speech clarity - read or repeat words) - 0(Normal) 11. Extinction and Inattention (visual/tactile/auditory/spatial/personal) - 0(No abnormality) Initials: fabrice Signatures: Dispatcher [employer] EDDerrick Norton MD MD cha Pena, Laura, RN RN lp1
[2021-11-13 23:51] LABS: Protime INR 0.97
[2021-11-14 00:12] LABS: Barbiturates NEGATIVE (NEGATIVE); Benzodiazepines NEGATIVE (NEGATIVE); Cocaine POSITIVE (NEGATIVE); METHAMPHETAM NEGATIVE (NEGATIVE); Methadone NEGATIVE (NEGATIVE); Opiates NEGATIVE (NEGATIVE); Phencyclidine NEGATIVE (NEGATIVE); THC Cannibis NEGATIVE (NEGATIVE)
[2021-11-14] MEDS ORDERED: AMOX/K CLAV 875 MG TAB ONE (00:27)
[2021-11-14] MEDS ORDERED: NA CHLORIDE 0.9% 50 ML ONE (00:28)
[2021-11-14] MEDS ORDERED: CEFTRIAXONE 1000 MG/VIAL ONE (00:28)
[2021-11-14] MEDS ORDERED: ONDANSETRON 4 MG/2 ML VIAL ONE (01:14)
[2021-11-14 03:12] VITALS: TEMP 98.4
[2021-11-14 03:18] VITALS: BP 115/73; O2SAT 95
--- NOTE | 2021-11-14 11:39 | RAD REPORT ---
EXAM DESCRIPTION: CT - Head Brain Wo Cont - 11/14/2021 6:00 am CLINICAL HISTORY: 51 years Female Headache, new or worsening, positional COMPARISON: CT head without contrast dated 10/21/2021 TECHNIQUE: Contiguous axial images of the brain were obtained without the administration of intraven ous contrast.This exam was performed according to our departmental dose-optimization program which in cludes use of Automated Exposure Control, adjustment of the mA and/or kV according to patient size an d/or use of iterative reconstruction technique. DLP: 828 mGy*cm FINDINGS: Brain: No acute intracranial hemorrhage. No extra-axial collection. No mass effect or murali iation. Vascular calcifications. Ventricles: Within normal limits in size. Globes and orbits: No acute abnormality. Bones: No acute osseous finding Paranasal sinuses: Circumferential left maxillary sinus mucosal thickening. Mastoid air cells: Well pneumatized. Soft tissues: Within normal limits IMPRESSION: No acute intracranial abnormality. Left maxillary sinus disease. No air-fluid levels. Electronically signed by: Gasper Bates DO 11/13/2021 11:26 PM CDT Due to temporary technical issues with the PACS/Fluency reporting system, reports are being signed by the in house radiologist without review as a courtesy to ensure prompt reporting. The interpreting r adiologist is fully responsible for the content of the report.
--- NOTE | 2021-11-14 11:55 | RAD REPORT ---
EXAM DESCRIPTION: RAD - Chest Single View - 11/13/2021 11:00 pm CLINICAL HISTORY: 51 years, Female, COUGH COMPARISON: None. FINDINGS: Single view of the chest was obtained portable. No prior films are available for compariso n. The cardiomediastinal silhouette demonstrate to be unremarkable. The heart is not enlarged. The thoracic aorta is unremarkable. Costophrenic angles are sharp. There is minimal increased density wit hin the right lung base perhaps corresponding to atelectasis and/or early infiltrate. Plate fixation device lower cervical spine. The rest of the soft tissue and bony structures demonstrate to be unrema rkable. IMPRESSION: Minimal right basilar atelectasis and/or early infiltrate. Electronically signed by: Cuong Shepherd MD 11/13/2021 11:13 PM CDT Due to temporary technical issues with the PACS/Fluency reporting system, reports are being signed by the in house radiologist without review as a courtesy to ensure prompt reporting. The interpreting r adiologist is fully responsible for the content of the report.
== END 2021-11-14 01:39 | disposition home or self-care (01) ==
LOC: ER 21:46
DX: G40.509 Epileptic seizures related to external causes, not intractable, without status epilepticus (principal); F14.10 Cocaine abuse, uncomplicated; J01.00 Acute maxillary sinusitis, unspecified; I10 Essential (primary) hypertension; F31.9 Bipolar disorder, unspecified; F17.210 Nicotine dependence, cigarettes, uncomplicated; Z91.018 Allergy to other foods
CPT/HCPCS: 36415; 70450; 71045; 80048; 80076; 80307; 81003; 83735; 83880; 84484; 85025; 85610; 93005; 96361; 96365; 96367; 96375; 99285; J1953; J2405; J7030

== ENCOUNTER 2021-11-24 16:29 | Emergency (ER) | payer SELFPAY ==
--- OUTSIDE RECORDS SUMMARY | 2021-11-24 16:34 | XMS REPORT | Continuity of Care Document ---
:[address] [facility] t Address [address] [place] [address] Care Team Providers Name Role Phone Pcp, Does Not Have A Primary Care Physician Angelia ALLISON Attending Clinician Unavailable Alcon ELIZONDO Attending Clinician Angelia Bishop Attending Clinician OTONIEL Attending Clinician Unavailable aCrlito Graham Attending Clinician Unavailable Otoniel ELIZONDO Attending Clinician Doctor Unassigned, Name Attending Clinician Unavailable Brandy CAMPOS Attending Clinician Unavailable Palmer SUAREZ Attending Clinician Deo BRONSONP Attending Clinician Unknown Attending Clinician Unavailable UNKNOWN Attending Clinician Unavailable Benjamin Rascon Attending Clinician Isrrael ELIZONDO, Dima Attending Clinician Payers Payer Name Policy Type Policy Number Effective Date Expiration Date S martina MEDICAID PENDING PENDING 2021 00:00:00 Problems Condition Condition Condition Status Onset Resolution Last Treating Co mments Source Name Details Category Date Date Treatment Clinician Date Bipolar Bipolar Disease Active NPI:183 disorder, disorder, 3-11 1318 781 in partial in partial 00:00: remission, remission, 00 most most recent recent episode episode manic manic Bilateral Bilateral Disease Active NPI :183 acute acute 09-27 [id number] otitis otitis 00:00: media, media, 00 recurrence recurrence not not specified, specified, unspecifie unspecifie d otitis d otitis media type media type Lumbar Lumbar Disease Active NPI:183 spinal spinal 09-2781 stenosis stenosis 00:00: 00 Right-side Right-side Disease Active N PI:183 d low back d low back 09-27 pain with pain with 00:00: sciatica, sciatica, 00 sciatica sciatica laterality laterality unspecifie unspecifie d d Generalize Generalize Disease Active N PI:183 d anxiety d anxiety 09-27 131 781 disorder disorder 00:00: 00 Agoraphobi Agoraphobi Disease Active N PI:183 a a 09-2781 00:00: 00 Bipolar Bipolar Disease Active NPI:183 disorder, disorder, 09-27 1318 781 in partial in partial 00:00: remission, remission, 00 most most recent recent episode episode manic manic Obsessive Obsessive Disease Active NPI :183 compulsive compulsive 09-27 38552 disorder disorder 00:00: 00 Breast Breast Disease Active NPI:183 mass, left mass, left 09-17 40547 00:00: 00 Anxiety Anxiety Disease Active NPI:183 09-17 1418097 00:00: 00 Lower back Lower back Disease Active N PI:183 pain pain 09-17 1584597 00:00: 00 High blood High blood Disease Active N PI:183 pressure pressure 09-17 435558 1 00:00: 00 COPD COPD Disease Active NPI:183 (chronic (chronic 09-17 374902 1 obstructiv obstructiv 00:00: e e 00 pulmonary pulmonary disease) disease) Obesity Obesity Disease Active NPI:183 09-17 9574529 00:00: 00 Allergies, Adverse Reactions, Alerts Allergy Allergy Status Severity Reaction(s) Onset Inactive Treating Comm ents Source Name Type Date Date Clinician Kristinaxeti Propensi Active NPI :183 ne ty to See comments 03-25 781 adverse 00:00: reaction 00 s FLUOXETI DRUG Active Unknown-Cmnt TYPE COPYIST I:183 NE INGREDI 03-25 3342361 00:00: 00 DICLOFEN DRUG Active HYPERTENSION TYPE COPYIST I:183 AC INGREDI 11-20 3203131 00:00: 00 Diclofen Propensi Active Hypertension NPI:183 ac ty to 11-20 [id number] adverse 00:00: reaction 00 s GREEN DRUG Active Med Other-Cmnt NPI:18 3 TEA INGREDI 08-10 7816280 00:00: 00 Green Propensi Active Other - See Seizures N PI:183 Tea ty to comments 08-10 2863927 adverse 00:00: reaction 00 s to drug FLUOXETI DRUG Active Hives NPI:183 NE HCL INGREDI 03-19 5345805 00:00: 00 Fluoxeti Propensi Active Hives NPI:18 3 ne Hcl ty to 03-19 [id number] adverse 00:00: reaction 00 s Social History Social Habit Start Date Stop Date Quantity Comments Source History of tobacco Cigar Smoker use Exposure to 2021-11-13 2021-11-23 Not sure NPI:[id number] 1 SARS-CoV-2 (event) 00:00:00 15:13:00 Alcohol intake 2021-11-23 2021-11-23 0 /d NPI:[id number] 00:00:00 00:00:00 Cigarettes smoked 2021-03-14 2021-03-14 NPI:778 [id number] current (pack per 00:00:00 00:00:00 day) - Reported Cigarette pack-years 2021-03-14 2021-03-14 00:00:00 00:00:00 Tobacco use and 2021-03-14 2021-03-14 Never used NPI:[id number] exposure 00:00:00 00:00:00 [birth year] NPI:[id number] 00:00:00 00:00:00 Smoking Status Start Date Stop Date Source Current every day smoker 2021-03-14 00:00:00 NPI :[id number] Medications Ordered Filled Start Stop Current Ordering Indication Dosage Frequency Signature Comments Components Source Medication Medication Date Date Medication? Clinician (SIG) Name Name aspirin Yes 324mg 324 mg, NPI:18 3 chewable 11-24 Oral, [id number] tablet 324 14:00: DAILY, mg 00 First dose on 11/24/21 at 0900, Until Discontinu ed, Routine metoclopram 2021- No 10mg 10 mg, NPI :183 iker HCl 11-23 Slow IV [id number] (REGLAN) 22:30: 21:24 Push, injection 00 :00 ONCE, 1 10 mg dose, On 11/23/21 at 1730, MICHAEL acetaminoph No 1000mg 1,000 mg, NPI:183 en 11-23 Oral, [id number] (TYLENOL) 22:15: 21:09 ONCE, 1 tablet 00 :00 dose, On 1,000 mg 11/23/21 at 1715, MICHAEL ondansetron No 4mg 4 mg, Slow NPI:183 (ZOFRAN 11-23 IV Push, [id number] (PF)) 21:45: 20:30 ONCE, 1 injection 4 00 :00 dose, On mg 11/23/21 at 1645, MICHAEL NaCl 0.9% 2021- No 1000mL at 999 NPI :183 (NS) bolus 11-23 mL/hr, [id number] 1 infusion 21:30: 21:56 1,000 mL, 1,000 mL 00 :00 IV Infusion, ONCE, 1 dose, On 11/23/21 at 1630, MICHAEL LORazepam 2021- No 4mg 4 mg, Slow N PI:183 (ATIVAN) 11-23 IV Push, [id number] 1 injection 4 21:30: 20:23 ONCE, 1 mg 00 :00 dose, On 11/23/21 at 1630, STAT levETIRAcet 2021- No 1500mg 1,500 mg, NPI:183 am (KEPPRA) 11-23 IV [id number] in NACL 21:30: 20:47 Piggyback, (ISO-OS) 00 :00 ONCE, 1 1,500 dose, On mg/100 mL 11/23/21 RTU at 1630, Administer over 15 Minutes, 100 mL levoFLOXaci 2020-2020- No 500mg 500 mg, N PI:183 n 03-17 Oral, [id number] (LEVAQUIN) 04:00: 04:22 ONCE, 1 tablet 500 00 :00 dose, Sat mg 03/16/21 at 2315, MICHAEL
Re ason for Anti-Infec tive: Documented Infection< br>Documen sherice Infection Site: Respirator y
Durat ion of Therapy: 7 days levoFLOXaci 2020-2020- No 500mg 500 mg, N PI:183 n 03-17 Oral, [id number] (LEVAQUIN) 04:00: 04:22 ONCE, 1 tablet 500 00 :00 dose, Sat mg 03/16/21 at 2315, MICHAEL
Re ason for Anti-Infec tive: Documented Infection< br>Documen sherice Infection Site: Respirator y
Durat ion of Therapy: 7 days morpHINE 2020-0 2020- No 4mg 4 mg, Slow TYPE COPYIST I:183 injection 4 03-17 IV Push, 131 8781 mg 01:58: 02:13 ONCE, 1 00 :00 dose, 03/16/21 at 2100, STAT ondansetron 2020-2020- No 4mg 4 mg, Slow NPI:183 (ZOFRAN 03-17 IV Push, [id number] (PF)) 01:58: 02:12 ONCE, 1 injection 4 00 :00 dose, Sat mg 03/16/21 at 2100, MICHAEL morpHINE 2020-0 2020- No 4mg 4 mg, Slow TYPE COPYIST I:183 injection 4 03-17 IV Push, 131 8781 mg 01:58: 02:13 ONCE, 1 00 :00 dose, 03/16/21 at 2100, STAT ondansetron 2020-2020- No 4mg 4 mg, Slow NPI:183 (ZOFRAN 03-17 IV Push, [id number] (PF)) 01:58: 02:12 ONCE, 1 injection 4 00 :00 dose, Sat mg 03/16/21 at 2100, MICHAEL ipratropium 202-0 2021- No 3mL 3 mL, NPI: 183 -albuteroL 03-17 Inhalation 13 [id number] (ONEB) 01:57: 02:15 , ONCE, 1 0.5 mg-3 00 :00 dose, Sat mg(2.5 mg 03/16/21 at base)/3 mL 2100, MICHAEL nebulizer solution 3 mL NaCl 0.9% 2020-0 202- No 1000mL at 999 NPI :183 (NS) IV 03-17 08-29 mL/hr, [id number] infusion 01:57: 03:07 Intravenou 1,000 mL 00 :00 s, ONCE, 1 dose, 03/16/21 at 2100, MICHAEL methylpredn 2020-0 2020- No 125mg 125 mg, N PI:183 isolone sod 03-17 Slow IV 1318 781 succ 01:57: 02:11 Push, (SOLU-MEDRO 00 :00 ONCE, 1 L) dose, Sat injection 03/16/21 at 125 mg 2100, STAT ipratropium 2020-0 2020- No 3mL 3 mL, NPI: 183 -albuteroL 03-17- Inhalation 13 [id number] (ONEB) 01:57: 02:15 , ONCE, 1 0.5 mg-3 00 :00 dose, Sat mg(2.5 mg 03/16/21 at base)/3 mL 2100, MICHAEL nebulizer solution 3 mL ipratropium 2020-0 1- No 3mL 3 mL, NPI: 183 -albuteroL 03-17 Inhalation 13 (ONEB) 01:57: 02:15 , ONCE, 1 0.5 mg-3 00 :00 dose, Sat mg(2.5 mg 03/16/21 at base)/3 mL 2100, MICHAEL nebulizer solution 3 mL NaCl 0.9% 2020-0 202- No 1000mL at 999 NPI :183 (NS) IV 03-17 08-29 mL/hr, [id number] infusion 01:57: 03:07 Intravenou 1,000 mL 00 :00 s, ONCE, 1 dose, 03/16/21 at 2100, MICHAEL methylpredn 2021-0 2021- No 125mg 125 mg, N PI:183 isolone sod 03-17 Slow IV [id number] [id number] succ 01:57: 02:11 Push, (SOLU-MEDRO 00 :00 ONCE, 1 L) dose, Sat injection 03/16/21 at 125 mg 2100, STAT ipratropium 2020- No 3mL 3 mL, NPI: 183 -albuteroL 03-17 Inhalation 13 [id number] (DUONEB) 01:57: 02:15 , ONCE, 1 0.5 mg-3 00 :00 dose, Sat mg(2.5 mg 03/16/21 at base)/3 mL 2100, MICHAEL nebulizer solution 3 mL levoFLOXaci No [id number] 500mg Take 1 NPI:183 n 500 mg 03-17 [place] [id number] 81 tablet 00:00: 04:59 mouth 00 :00 daily for 6 days. levoFLOXaci No [id number] 500mg Take 1 NPI:183 n 500 mg 03-17 [place] [id number] 81 tablet 00:00: 04:59 mouth 00 :00 daily for 6 days. levoFLOXaci No [id number] 500mg Take 1 NPI:183 n 500 mg 03-17 tablet [place] [id number] 81 tablet 00:00: 04:59 mouth 00 :00 daily for 6 days. levoFLOXaci No [id number] 500mg Take 1 NPI:183 n 500 mg 03-17 tablet by [id number] 81 tablet 00:00: 04:59 mouth 00 :00 daily for 6 days. predniSONE No [id number] 30mg Take 3 NPI:183 10 mg 03-17 tablets by [id number] tablet 00:00: 04:59 mouth 00 :00 daily for 4 days. predniSONE No [id number] 30mg Take 3 NPI:183 10 mg 03-17 tablets by [id number] tablet 00:00: 04:59 mouth 00 :00 daily for 4 days. predniSONE No [id number] 30mg Take 3 NPI:183 10 mg 03-17- tablets by [id number] tablet 00:00: 04:59 mouth 00 :00 daily for 4 days. predniSONE 2020- No [id number] 30mg Take 3 NPI:183 10 mg 03-17- tablets by [id number] tablet 00:00: 04:59 mouth 00 :00 daily for 4 days. albuterol 2020- No [id number] 4{puff} 4 Puff, NPI:183 (VENTOLIN) 03-15 Inhalation 13 [id number] inhaler 4 01:45: 00:44 , ONCE, 1 Puff 00 :00 dose, Arpita 03/14/21 at 2044, Routine dexamethaso 2020- No [id number] 10mg 10 mg, NPI:183 ne 03-15 Intramuscu [id number] (DECADRON) 01:45: 00:45 lar, ONCE, injection 00 :00 1 dose, 10 mg Arpita 03/14/21 at 2044, Routine albuterol Yes [id number] 2.5mg Inhale 3 NPI:183 2.5 mg /3 8-27 mL every 4 1318 781 mL (0.083 00:00: (four) %) 00 hours as nebulizer needed for solution Wheezing or Shortness of Breath. albuterol Yes [id number] 2.5mg Inhale 3 NPI:183 2.5 mg /3 8-27 mL every 4 1318 781 mL (0.083 00:00: (four) %) 00 hours as nebulizer needed for solution Wheezing or Shortness of Breath. albuterol Yes [id number] 2.5mg Inhale 3 NPI:183 2.5 mg /3 8-27 mL every 4 1318 781 mL (0.083 00:00: (four) %) 00 hours as nebulizer needed for solution Wheezing or Shortness of Breath. albuterol Yes [id number] 2.5mg Inhale 3 NPI:183 2.5 mg /3 8-27 mL every 4 1318 781 mL (0.083 00:00: (four) %) 00 hours as nebulizer needed for solution Wheezing or Shortness of Breath. albuterol 2020-0 Yes [id number] 2.5mg Inhale 3 NPI:183 2.5 mg /3 8-27 mL every 4 1318 781 mL (0.083 00:00: (four) %) 00 hours as nebulizer needed for solution Wheezing or Shortness of Breath. albuterol 2020-0 Yes [id number] 2.5mg Inhale 3 NPI:183 2.5 mg /3 8-27 mL every 4 1318 781 mL (0.083 00:00: (four) %) 00 hours as nebulizer needed for solution Wheezing or Shortness of Breath. albuterol 2020-0 Yes [id number] 2.5mg Inhale 3 NPI:183 2.5 mg /3 8-27 mL every 4 1318 781 mL (0.083 00:00: (four) %) 00 hours as nebulizer needed for solution Wheezing or Shortness of Breath. albuterol 2020-0 Yes [id number] 2.5mg Inhale 3 NPI:183 2.5 mg /3 8-27 mL every 4 1318 781 mL (0.083 00:00: (four) %) 00 hours as nebulizer needed for solution Wheezing or Shortness of Breath. albuterol 2020-0 Yes [id number] 2.5mg Inhale 3 NPI:183 2.5 mg /3 8-27 mL every 4 1318 781 mL (0.083 00:00: (four) %) 00 hours as nebulizer needed for solution Wheezing or Shortness of Breath. levETIRAcet 0 2020- No 1000mg 1,000 mg, NPI:183 am (KEPPRA) 02-19 08-03 IV [id number] in NACL 20:15: 19:30 Infusion, (ISO-OS) 00 :00 ONCE, 1 1,000 dose, Tue mg/100 mL 02/19/21 at RTU 1515, Administer over 15 Minutes, 100 mL levetiracet 2020-0 Yes Take by TYPE COPYIST I:183 am (KEPPRA 8- mouth. [id number] ORAL) 19:45: 33 levetiracet 2020-0 Yes Take by TYPE COPYIST I:183 am (KEPPRA 8-03 mouth. [id number] ORAL) 19:45: 33 levetiracet 0 Yes Take by TYPE COPYIST I:183 am (KEPPRA 8-03 mouth. [id number] ORAL) 19:45: 33 levetiracet 2020-0 Yes Take by TYPE COPYIST I:183 am (KEPPRA 8-03 mouth. [id number] ORAL) 19:45: 33 levetiracet 0 Yes Take by TYPE COPYIST I:183 am (KEPPRA 8-03 mouth. [id number] ORAL) 19:45: 33 levetiracet 0 Yes Take by TYPE COPYIST I:183 am (KEPPRA 8-03 mouth. [id number] ORAL) 19:45: 33 LISINOPRIL- 2020- No Take by N PI:183 HYDROCHLORO 02-19 mouth. [id number] THIAZIDE 19:41: 00:00 ORAL 15 :00 dicyclomine 2020- No 20mg 20 mg, NPI :183 (BENTYL) 02-19 Intramuscu 1318 781 injection 19:15: 19:04 lar, ONCE, 20 mg 00 :00 1 dose, 02/19/21 at 1415, Routine proMETHazin 2020- No 25mg 25 mg, IV NPI:183 e 02-19 Piggyback, [id number] (PHENERGAN) 19:15: 19:03 ONCE, 1 25 mg in 00 :00 dose, Tue NaCl 0.9% 02/19/21 at (NS) 50 mL 1415, 50 piggyback mL morpHINE 2020- No 4mg 4 mg, Slow TYPE COPYIST I:183 injection 4 02-19 IV Push, 131 8781 mg 17:15: 17:05 ONCE, 1 00 :00 dose, 02/19/21 at 1215, STAT NaCl 0.9% 2020- No 1000mL at 999 NPI :183 (NS) bolus 02-19 mL/hr, [id number] 1 infusion 17:15: 19:04 1,000 mL, 1,000 mL 00 :00 IV Infusion, ONCE, 1 dose, 02/19/21 at 1215, STAT ondansetron 2020- No 4mg 4 mg, Slow NPI:183 (ZOFRAN 02-19- IV Push, [id number] (PF)) 17:00: 15:59 ONCE, 1 injection 4 00 :00 dose, Tue mg 02/19/21 at 1200, MICHAEL iopamidol 0 202- No [id number] 100mL 100 mL, NPI:183 (ISOVUE 02-19- Intravenou 69224 81 370-500 mL) 16:35: 16:45 s, ONCE, 1 injection 00 :00 dose, Tue 100 mL 02/19/21 at 1145, Routine levetiracet 0 Yes Take by TYPE COPYIST I:183 am (KEPPRA 8-03 mouth. [id number] ORAL) 14:45: 33 levetiracet 0 Yes Take by TYPE COPYIST I:183 am (KEPPRA 8-03 mouth. [id number] ORAL) 14:45: 33 levetiracet 0 Yes Take by TYPE COPYIST I:183 am (KEPPRA 8-03 mouth. [id number] ORAL) 14:45: 33 levetiracet 0 Yes Take by TYPE COPYIST I:183 am (KEPPRA 8-03 mouth. [id number] ORAL) 14:45: 33 proMETHazin 2020-0 Yes [id number] 25mg Take 1 NPI:183 e 25 mg 8-03 tablet by [id number] tablet 00:00: mouth 00 every 6 (six) hours as needed for Nausea and Vomiting (N/V). dicyclomine 2020-0 Yes [id number] 20mg Take 1 NPI:183 20 mg 8-03 tablet by [id number] tablet 00:00: mouth 4 00 (four) times daily as needed for Abdominal pain. proMETHazin 2020-0 Yes [id number] 25mg Take 1 NPI:183 e 25 mg 8-03 tablet by [id number] tablet 00:00: mouth 00 every 6 (six) hours as needed for Nausea and Vomiting (N/V). dicyclomine 2020-0 Yes [id number] 20mg Take 1 NPI:183 20 mg 8-03 tablet by [id number] tablet 00:00: mouth 4 00 (four) times daily as needed for Abdominal pain. proMETHazin 2020-0 Yes [id number] 25mg Take 1 NPI:183 e 25 mg 8-03 tablet by [id number] tablet 00:00: mouth 00 every 6 (six) hours as needed for Nausea and Vomiting (N/V). dicyclomine 2020-0 Yes [id number] 20mg Take 1 NPI:183 20 mg 8-03 tablet by [id number] tablet 00:00: mouth 4 00 (four) times daily as needed for Abdominal pain. proMETHazin 2020-0 Yes [id number] 25mg Take 1 NPI:183 e 25 mg 8-03 tablet by [id number] tablet 00:00: mouth 00 every 6 (six) hours as needed for Nausea and Vomiting (N/V). dicyclomine 2020-0 Yes [id number] 20mg Take 1 NPI:183 20 mg 8-03 tablet by [id number] tablet 00:00: mouth 4 00 (four) times daily as needed for Abdominal pain. proMETHazin 2020-0 Yes [id number] 25mg Take 1 NPI:183 e 25 mg 8-03 tablet by [id number] tablet 00:00: mouth 00 every 6 (six) hours as needed for Nausea and Vomiting (N/V). dicyclomine 2020-0 Yes [id number] 20mg Take 1 NPI:183 20 mg 8-03 tablet by [id number] tablet 00:00: mouth 4 00 (four) times daily as needed for Abdominal pain. proMETHazin 2020-0 Yes [id number] 25mg Take 1 NPI:183 e 25 mg 8-03 tablet by [id number] tablet 00:00: mouth 00 every 6 (six) hours as needed for Nausea and Vomiting (N/V). dicyclomine 2020-0 Yes [id number] 20mg Take 1 NPI:183 20 mg 8-03 tablet by [id number] tablet 00:00: mouth 4 00 (four) times daily as needed for Abdominal pain. proMETHazin 2020-0 Yes [id number] 25mg Take 1 NPI:183 e 25 mg 8-03 tablet by [id number] tablet 00:00: mouth 00 every 6 (six) hours as needed for Nausea and Vomiting (N/V). dicyclomine 2020-0 Yes [id number] 20mg Take 1 NPI:183 20 mg 8-03 tablet by [id number] tablet 00:00: mouth 4 00 (four) times daily as needed for Abdominal pain. proMETHazin 0 Yes [id number] 25mg Take 1 NPI:183 e 25 mg 8-03 tablet by [id number] tablet 00:00: mouth 00 every 6 (six) hours as needed for Nausea and Vomiting (N/V). dicyclomine Yes [id number] 20mg Take 1 NPI:183 20 mg 8-03 tablet by [id number] tablet 00:00: mouth 4 00 (four) times daily as needed for Abdominal pain. proMETHazin Yes [id number] 25mg Take 1 NPI:183 e 25 mg 8-03 tablet by [id number] tablet 00:00: mouth 00 every 6 (six) hours as needed for Nausea and Vomiting (N/V). dicyclomine Yes [id number] 20mg Take 1 NPI:183 20 mg 8-03 tablet by [id number] tablet 00:00: mouth 4 00 (four) times daily as needed for Abdominal pain. proMETHazin Yes [id number] 25mg Take 1 NPI:183 e 25 mg 8-03 tablet by [id number] tablet 00:00: mouth 00 every 6 (six) hours as needed for Nausea and Vomiting (N/V). dicyclomine Yes [id number] 20mg Take 1 NPI:183 20 mg 8-03 tablet by [id number] tablet 00:00: mouth 4 00 (four) times daily as needed for Abdominal pain. ZONISAMIDE Yes TAKE 1 NPI:1 83 100 mg 4-29 CAPSULE BY [id number] capsule 00:00: MOUTH 00 TWICE A DAY ZONISAMIDE 2020- No TAKE 1 NPI: 183 100 mg 4-29 08-03 CAPSULE BY [id number] 1 capsule 00:00: 00:00 MOUTH 00 :00 TWICE A DAY ondansetron Yes 4mg Take 4 mg N PI:183 (ZOFRAN) 4 7-24 by mouth [id number] 81 mg tablet 20:05: every 8 01 (eight) hours as needed. pantoprazol Yes 40mg Take 40 mg NPI:183 e 7-24 by mouth [id number] (PROTONIX) 20:05: daily. 40 mg EC 01 tablet ondansetron 2018-0 Yes 4mg Take 4 mg N PI:183 (ZOFRAN) 4 7-24 by mouth [id number] 81 mg tablet 20:05: every 8 01 (eight) hours as needed. pantoprazol 2018-0 Yes 40mg Take 40 mg NPI:183 e 7-24 by mouth [id number] (PROTONIX) 20:05: daily. 40 mg EC 01 tablet LISINOPRIL- 2018-0 Yes Take by TYPE COPYIST I:183 HYDROCHLORO 7-24 mouth. [id number] 1 THIAZIDE 20:05: ORAL 01 ondansetron 2018-0 Yes 4mg Take 4 mg N PI:183 (ZOFRAN) 4 7-24 by mouth [id number] 81 mg tablet 20:05: every 8 01 (eight) hours as needed. pantoprazol 2018-0 Yes 40mg Take 40 mg NPI:183 e 7-24 by mouth [id number] (PROTONIX) 20:05: daily. 40 mg EC 01 tablet ondansetron 2018-0 Yes 4mg Take 4 mg N PI:183 (ZOFRAN) 4 7-24 by mouth 29587 81 mg tablet 20:05: every 8 01 (eight) hours as needed. pantoprazol 2018-0 Yes 40mg Take 40 mg NPI:183 e 7-24 by mouth [id number] (PROTONIX) 20:05: daily. 40 mg EC 01 tablet ondansetron 2018-0 Yes 4mg Take 4 mg N PI:183 (ZOFRAN) 4 7-24 by mouth 22030 81 mg tablet 20:05: every 8 01 (eight) hours as needed. pantoprazol 2018-0 Yes 40mg Take 40 mg NPI:183 e 7-24 by mouth [id number] (PROTONIX) 20:05: daily. 40 mg EC 01 tablet ondansetron 2018-0 Yes 4mg Take 4 mg N PI:183 (ZOFRAN) 4 7-24 by mouth 44680 81 mg tablet 20:05: every 8 01 (eight) hours as needed. pantoprazol 2018-0 Yes 40mg Take 40 mg NPI:183 e 7-24 by mouth [id number] (PROTONIX) 20:05: daily. 40 mg EC 01 tablet ondansetron 2018-0 Yes 4mg Take 4 mg N PI:183 (ZOFRAN) 4 7-24 by mouth [id number] 81 mg tablet 20:05: every 8 01 (eight) hours as needed. pantoprazol Yes 40mg Take 40 mg NPI:183 e 7-24 by mouth [id number] (PROTONIX) 20:05: daily. 40 mg EC 01 tablet lisinopril- 2017-0 Yes 1{tbl} Take 1 TYPE COPYIST I:183 hydrochloro 7-24 tablet by 131 [id number] thiazide 20:03: mouth 20-12.5 mg 30 daily. per tablet lisinopril- 2017-0 Yes 1{tbl} Take 1 TYPE COPYIST I:183 hydrochloro 7-24 tablet by 131 8781 thiazide 20:03: mouth 20-12.5 mg 30 daily. per tablet lisinopril- 2017-0 Yes 1{tbl} Take 1 TYPE COPYIST I:183 hydrochloro 7-24 tablet by 131 8781 thiazide 20:03: mouth 20-12.5 mg 30 daily. per tablet lisinopril- 2017-0 Yes 1{tbl} Take 1 TYPE COPYIST I:183 hydrochloro 7-24 tablet by 131 8781 thiazide 20:03: mouth 20-12.5 mg 30 daily. per tablet lisinopril- 2018-0 Yes 1{tbl} Take 1 TYPE COPYIST I:183 hydrochloro 7-24 tablet by 131 8781 thiazide 20:03: mouth 20-12.5 mg 30 daily. per tablet lisinopril- 2018-0 Yes 1{tbl} Take 1 TYPE COPYIST I:183 hydrochloro 7-24 tablet by 131 8781 thiazide 20:03: mouth 20-12.5 mg 30 daily. per tablet lisinopril- 2018-0 Yes 1{tbl} Take 1 TYPE COPYIST I:183 hydrochloro 7-24 tablet by 131 8781 thiazide 20:03: mouth 20-12.5 mg 30 daily. per tablet omega-3 2017-0 Yes 1g Take 1 g NPI:18 3 fatty 7-24 by mouth [id number] acids-vitam 19:59: daily. in E (FISH 52 OIL) 1,000 mg capsule omega-3 2018-0 Yes 1g Take 1 g NPI:18 3 fatty 7-24 by mouth [id number] acids-vitam 19:59: daily. in E (FISH 52 OIL) 1,000 mg capsule omega-3 2018-0 Yes 1g Take 1 g NPI:18 3 fatty 7-24 by mouth [id number] acids-vitam 19:59: daily. in E (FISH 52 OIL) 1,000 mg capsule omega-3 2018-0 Yes 1g Take 1 g NPI:18 3 fatty 7-24 by mouth [id number] acids-vitam 19:59: daily. in E (FISH 52 OIL) 1,000 mg capsule omega-3 2018-0 Yes 1g Take 1 g NPI:18 3 fatty 7-24 by mouth [id number] acids-vitam 19:59: daily. in E (FISH 52 OIL) 1,000 mg capsule omega-3 2018-0 Yes 1g Take 1 g NPI:18 3 fatty 7-24 by mouth [id number] acids-vitam 19:59: daily. in E (FISH 52 OIL) 1,000 mg capsule omega-3 2018-0 Yes 1g Take 1 g NPI:18 3 fatty 7-24 by mouth [id number] acids-vitam 19:59: daily. in E (FISH 52 OIL) 1,000 mg capsule MULTIVITAMI 2018-0 Yes 1{tbl} Take 1 Tab NPI:183 N ORAL 7-24 by mouth [id number] 19:58: daily. 14 loratadine 2018-0 Yes Take by NPI :183 (CLARITIN 7-24 mouth [id number] LIQUI-GEL) 19:58: daily. 10 mg 14 capsule MULTIVITAMI 2018-0 Yes 1{tbl} Take 1 Tab NPI:183 N ORAL 7-24 by mouth [id number] 19:58: daily. 14 loratadine 2018-0 Yes Take by NPI :183 (CLARITIN 7-24 mouth [id number] LIQUI-GEL) 19:58: daily. 10 mg 14 capsule MULTIVITAMI 2018-0 Yes 1{tbl} Take 1 Tab NPI:183 N ORAL 7-24 by mouth [id number] 19:58: daily. 14 loratadine 2018-0 Yes Take by NPI :183 (CLARITIN 7-24 mouth [id number] LIQUI-GEL) 19:58: daily. 10 mg 14 capsule MULTIVITAMI 2018-0 Yes 1{tbl} Take 1 Tab NPI:183 N ORAL 7-24 by mouth [id number] 19:58: daily. 14 loratadine 2018-0 Yes Take by NPI :183 (CLARITIN 7-24 mouth [id number] LIQUI-GEL) 19:58: daily. 10 mg 14 capsule MULTIVITAMI 2018-0 Yes 1{tbl} Take 1 Tab NPI:183 N ORAL 7-24 by mouth [id number] 19:58: daily. 14 loratadine 2018-0 Yes Take by NPI :183 (CLARITIN 7-24 mouth [id number] LIQUI-GEL) 19:58: daily. 10 mg 14 capsule MULTIVITAMI 2018-0 Yes 1{tbl} Take 1 Tab NPI:183 N ORAL 7-24 by mouth [id number] 19:58: daily. 14 loratadine 2018-0 Yes Take by NPI :183 (CLARITIN 7-24 mouth [id number] LIQUI-GEL) 19:58: daily. 10 mg 14 capsule MULTIVITAMI 2018-0 Yes 1{tbl} Take 1 Tab NPI:[email or web address] N ORAL 7-24 by mouth [id number] 19:58: daily. 14 loratadine 2018-0 Yes Take by NPI :183 (CLARITIN 7-24 mouth [id number] LIQUI-GEL) 19:58: daily. 10 mg 14 capsule ondansetron 2018-0 Yes 4mg Take 4 mg N PI:183 (ZOFRAN) 4 7-24 by mouth [id number] mg tablet 15:05: every 8 01 (eight) hours as needed. pantoprazol 2018-0 Yes 40mg Take 40 mg NPI:183 e 7-24 by mouth [id number] (PROTONIX) 15:05: daily. 40 mg EC 01 tablet ondansetron 2018-0 Yes 4mg Take 4 mg N PI:183 (ZOFRAN) 4 7-24 by mouth [id number] 81 mg tablet 15:05: every 8 01 (eight) hours as needed. pantoprazol 2018-0 Yes 40mg Take 40 mg NPI:183 e 7-24 by mouth [id number] (PROTONIX) 15:05: daily. 40 mg EC 01 tablet ondansetron 2018-0 Yes 4mg Take 4 mg N PI:183 (ZOFRAN) 4 7-24 by mouth [id number] 81 mg tablet 15:05: every 8 01 (eight) hours as needed. pantoprazol 2018-0 Yes 40mg Take 40 mg NPI:183 e 7-24 by mouth [id number] (PROTONIX) 15:05: daily. 40 mg EC 01 tablet ondansetron 2018-0 Yes 4mg Take 4 mg N PI:183 (ZOFRAN) 4 7-24 by mouth [id number] 81 mg tablet 15:05: every 8 01 (eight) hours as needed. pantoprazol 2018-0 Yes 40mg Take 40 mg NPI:183 e 7-24 by mouth [id number] (PROTONIX) 15:05: daily. 40 mg EC 01 tablet lisinopril- 2018-0 Yes 1{tbl} Take 1 TYPE COPYIST I:183 hydrochloro 7-24 tablet by 131 [id number] thiazide 15:03: mouth 20-12.5 mg 30 daily. per tablet lisinopril- 2018-0 Yes 1{tbl} Take 1 TYPE COPYIST I:183 hydrochloro 7-24 tablet by 131 [id number] thiazide 15:03: mouth 20-12.5 mg 30 daily. per tablet lisinopril- 2018-0 Yes 1{tbl} Take 1 TYPE COPYIST I:183 hydrochloro 7-24 tablet by 131 [id number] thiazide 15:03: mouth 20-12.5 mg 30 daily. per tablet lisinopril- 2018-0 Yes 1{tbl} Take 1 TYPE COPYIST I:183 hydrochloro 7-24 tablet by 131 8781 thiazide 15:03: mouth 20-12.5 mg 30 daily. per tablet omega-3 2018-0 Yes 1g Take 1 g NPI:18 3 fatty 7-24 by mouth [id number] acids-vitam 14:59: daily. in E (FISH 52 OIL) 1,000 mg capsule omega-3 2018-0 Yes 1g Take 1 g NPI:18 3 fatty 7-24 by mouth [id number] acids-vitam 14:59: daily. in E (FISH 52 OIL) 1,000 mg capsule omega-3 2018-0 Yes 1g Take 1 g NPI:18 3 fatty 7-24 by mouth [id number] acids-vitam 14:59: daily. in E (FISH 52 OIL) 1,000 mg capsule omega-3 2018-0 Yes 1g Take 1 g NPI:18 3 fatty 7-24 by mouth [id number] acids-vitam 14:59: daily. in E (FISH 52 OIL) 1,000 mg capsule MULTIVITAMI 2018-0 Yes 1{tbl} Take 1 Tab NPI:183 N ORAL 7-24 by mouth [id number] 14:58: daily. 14 loratadine 2018-0 Yes Take by NPI :183 (CLARITIN 7-24 mouth [id number] LIQUI-GEL) 14:58: daily. 10 mg 14 capsule MULTIVITAMI 2018-0 Yes 1{tbl} Take 1 Tab NPI:183 N ORAL 7-24 by mouth [id number] 14:58: daily. 14 loratadine 2018-0 Yes Take by NPI :183 (CLARITIN 7-24 mouth [id number] LIQUI-GEL) 14:58: daily. 10 mg 14 capsule MULTIVITAMI 2018-0 Yes 1{tbl} Take 1 Tab NPI:183 N ORAL 7-24 by mouth [id number] 14:58: daily. 14 loratadine 2018-0 Yes Take by NPI :183 (CLARITIN 7-24 mouth [id number] LIQUI-GEL) 14:58: daily. 10 mg 14 capsule MULTIVITAMI 2018-0 Yes 1{tbl} Take 1 Tab NPI:183 N ORAL 7-24 by mouth [id number] 14:58: daily. 14 loratadine 2018-0 Yes Take by NPI :183 (CLARITIN 7-24 mouth [id number] LIQUI-GEL) 14:58: daily. 10 mg 14 capsule proMETHazin 2015-0 Yes 25mg Take 1 NPI: 183 e 5-04 tablet by [id number] (PHENERGAN) 00:00: mouth 25 mg 00 every 6 tablet (six) hours as needed for Nausea and Vomiting (N/V). proMETHazin 2016-0 2020- No 25mg Take 1 NPI :183 e 5-04 08-03 tablet by [id number] (PHENERGAN) 00:00: 00:00 mouth 25 mg 00 :00 every 6 tablet (six) hours as needed for Nausea and Vomiting (N/V). carvedilol 2016-0 Yes 6.25mg Take 1 Tab NPI:183 (COREG) 3-03 by mouth 2 [id number] 1 6.25 mg 00:00: (two) tablet 00 times daily with meals. amLODIPine 2015-0 Yes 10mg Take 1 Tab N PI:183 (NORVASC) 3-03 by mouth [id number] 1 10 mg 00:00: daily. tablet 00 lisinopril 2016-0 Yes 40mg Take 1 Tab N PI:183 (PRINIVIL,Z 3-03 by mouth 1318 781 ESTRIL) 40 00:00: daily. mg tablet 00 carvedilol 2016-0 Yes 6.25mg Take 1 Tab NPI:183 (COREG) 3-03 by mouth 2 [id number] 1 6.25 mg 00:00: (two) tablet 00 times daily with meals. amLODIPine 2016-0 Yes 10mg Take 1 Tab N PI:183 (NORVASC) 3-03 by mouth [id number] 1 10 mg 00:00: daily. tablet 00 lisinopril 2016-0 Yes 40mg Take 1 Tab N PI:183 (PRINIVIL,Z 3-03 by mouth 1318 781 ESTRIL) 40 00:00: daily. mg tablet 00 carvedilol 2016-0 Yes 6.25mg Take 1 Tab NPI:183 (COREG) 3-03 by mouth 2 [id number] 1 6.25 mg 00:00: (two) tablet 00 times daily with meals. amLODIPine 2016-0 Yes 10mg Take 1 Tab N PI:183 (NORVASC) 3-03 by mouth [id number] 1 10 mg 00:00: daily. tablet 00 lisinopril 2016-0 Yes 40mg Take 1 Tab N PI:183 (PRINIVIL,Z 3-03 by mouth 1318 781 ESTRIL) 40 00:00: daily. mg tablet 00 carvedilol 2016-0 Yes 6.25mg Take 1 Tab NPI:183 (COREG) 3-03 by mouth 2 [id number] 1 6.25 mg 00:00: (two) tablet 00 times daily with meals. amLODIPine 2016-0 Yes 10mg Take 1 Tab N PI:183 (NORVASC) 3-03 by mouth [id number] 1 10 mg 00:00: daily. tablet 00 lisinopril 2016-0 Yes 40mg Take 1 Tab N PI:183 (PRINIVIL,Z 3-03 by mouth 1318 781 ESTRIL) 40 00:00: daily. mg tablet 00 carvedilol 2016-0 Yes 6.25mg Take 1 Tab NPI:183 (COREG) 3-03 by mouth 2 [id number] 1 6.25 mg 00:00: (two) tablet 00 times daily with meals. amLODIPine 2016-0 Yes 10mg Take 1 Tab N PI:183 (NORVASC) 3-03 by mouth [id number] 1 10 mg 00:00: daily. tablet 00 lisinopril 2016-0 Yes 40mg Take 1 Tab N PI:183 (PRINIVIL,Z 3-03 by mouth 1318 781 ESTRIL) 40 00:00: daily. mg tablet 00 carvedilol 2016-0 Yes 6.25mg Take 1 Tab NPI:183 (COREG) 3-03 by mouth 2 [id number] 1 6.25 mg 00:00: (two) tablet 00 times daily with meals. amLODIPine 2016-0 Yes 10mg Take 1 Tab N PI:183 (NORVASC) 3-03 by mouth [id number] 1 10 mg 00:00: daily. tablet 00 lisinopril 2016-0 Yes 40mg Take 1 Tab N PI:183 (PRINIVIL,Z 3-03 by mouth 1318 781 ESTRIL) 40 00:00: daily. mg tablet 00 carvedilol 2016-0 Yes 6.25mg Take 1 Tab NPI:183 (COREG) 3-03 by mouth 2 [id number] 1 6.25 mg 00:00: (two) tablet 00 times daily with meals. amLODIPine 2016-0 Yes 10mg Take 1 Tab N PI:183 (NORVASC) 3-03 by mouth [id number] 1 10 mg 00:00: daily. tablet 00 lisinopril 2016-0 Yes 40mg Take 1 Tab N PI:183 (PRINIVIL,Z 3-03 by mouth 1318 781 ESTRIL) 40 00:00: daily. mg tablet 00 carvedilol 2016-0 Yes 6.25mg Take 1 Tab NPI:183 (COREG) 3-03 by mouth 2 [id number] 1 6.25 mg 00:00: (two) tablet 00 times daily with meals. amLODIPine 2016-0 Yes 10mg Take 1 Tab N PI:183 (NORVASC) 3-03 by mouth [id number] 1 10 mg 00:00: daily. tablet 00 lisinopril 2016-0 Yes 40mg Take 1 Tab N PI:183 (PRINIVIL,Z 3-03 by mouth 1318 781 ESTRIL) 40 00:00: daily. mg tablet 00 carvedilol 2016-0 Yes 6.25mg Take 1 Tab NPI:183 (COREG) 3-03 by mouth 2 [id number] 1 6.25 mg 00:00: (two) tablet 00 times daily with meals. amLODIPine 2016-0 Yes 10mg Take 1 Tab N PI:183 (NORVASC) 3-03 by mouth [id number] 1 10 mg 00:00: daily. tablet 00 lisinopril 2016-0 Yes 40mg Take 1 Tab N PI:183 (PRINIVIL,Z 3-03 by mouth 1318 781 ESTRIL) 40 00:00: daily. mg tablet 00 carvedilol 2016-0 Yes 6.25mg Take 1 Tab NPI:183 (COREG) 3-03 by mouth 2 [id number] 1 6.25 mg 00:00: (two) tablet 00 times daily with meals. amLODIPine 2016-0 Yes 10mg Take 1 Tab N PI:183 (NORVASC) 3-03 by mouth [id number] 1 10 mg 00:00: daily. tablet 00 lisinopril 2016-0 Yes 40mg Take 1 Tab N PI:183 (PRINIVIL,Z 3-03 by mouth 1318 781 ESTRIL) 40 00:00: daily. mg tablet 00 carvedilol 2016-0 Yes 6.25mg Take 1 Tab NPI:183 (COREG) 3-03 by mouth 2 [id number] 1 6.25 mg 00:00: (two) tablet 00 times daily with meals. amLODIPine 2016-0 Yes 10mg Take 1 Tab N PI:183 (NORVASC) 3-03 by mouth [id number] 1 10 mg 00:00: daily. tablet 00 lisinopril 2016-0 Yes 40mg Take 1 Tab N PI:183 (PRINIVIL,Z 3-03 by mouth 1318 781 ESTRIL) 40 00:00: daily. mg tablet 00 Immunizations Ordered Immunization Filled Immunization Date Status Commen ts Source Name Name SARS-COV-2 COVID-19 2021-05-24 Completed NPI:1 [id number] PFIZER VACCINE 00:00:00 SARS-COV-2 COVID-19 2021-05-24 Completed NPI:1 [id number] PFIZER VACCINE 00:00:00 SARS-COV-2 COVID-19 2021-05-03 Completed NPI:1 [id number] PFIZER VACCINE 00:00:00 SARS-COV-2 COVID-19 2021-05-03 Completed NPI:1 [id number] PFIZER VACCINE 00:00:00 SARS-COV-2 COVID-19 2021-05-03 Completed NPI:1 [id number] PFIZER VACCINE 00:00:00 Vital Signs Vital Name Observation Time Observation Value Comments Source Systolic blood pressure 2021-11-23 21:30:00 132 mm[Hg] Diastolic blood 2021-11-23 21:30:00 76 mm[Hg] NPI:1 [id number] pressure Heart rate 2021-11-23 21:30:00 95 /min NPI:1831 [id number] Respiratory rate 2021-11-23 21:30:00 13 /min Oxygen saturation in 2021-11-23 21:30:00 97 /min Arterial blood by Pulse oximetry Body temperature 2021-11-23 20:15:00 37.56 Radha Systolic blood pressure 2021-03-17 03:00:00 117 mm[Hg] Diastolic blood 2021-03-17 03:00:00 76 mm[Hg] NPI:1 [id number] pressure Heart rate 2021-03-17 03:00:00 104 /min NPI:1831 [id number] Respiratory rate 2021-03-17 03:00:00 28 /min Oxygen saturation in 2021-03-17 03:00:00 96 /min Arterial blood by Pulse oximetry Body temperature 2021-03-17 00:39:00 37.11 Radha Body height 2021-03-17 00:39:00 160 cm NPI:1831 [id number] Body weight 2021-03-17 00:39:00 58.968 kg NPI:1831 [id number] BMI 2021-03-17 00:39:00 23.03 kg/m2 NPI:1831 163306 Systolic blood pressure 2021-03-15 00:14:00 149 mm[Hg] Diastolic blood 2021-03-15 00:14:00 78 mm[Hg] NPI:1 [id number] pressure Heart rate 2021-03-15 00:14:00 100 /min NPI:1831 [id number] Body temperature 2021-03-15 00:14:00 37.33 Radha Respiratory rate 2021-03-15 00:14:00 24 /min Body height 2021-03-15 00:14:00 160 cm NPI:1831 269759 Body weight 2021-03-15 00:14:00 58.968 kg NPI:1831 [id number] BMI 2021-03-15 00:14:00 23.03 kg/m2 NPI:1831 [id number] Oxygen saturation in 2021-03-15 00:14:00 98 /min Arterial blood by Pulse oximetry Systolic blood pressure 2021-02-19 18:00:00 131 mm[Hg] Diastolic blood 2021-02-19 18:00:00 80 mm[Hg] NPI:1 [id number] pressure Heart rate 2021-02-19 18:00:00 83 /min NPI:1831 845144 Respiratory rate 2021-02-19 18:00:00 18 /min Oxygen saturation in 2021-02-19 18:00:00 100 /min Arterial blood by Pulse oximetry Body temperature 2021-02-19 15:47:00 37 Radha Body height 2021-02-19 15:47:00 160 cm NPI:1831 115542 Body weight 2021-02-19 15:47:00 58.968 kg NPI:1831 526502 BMI 2021-02-19 15:47:00 23.03 kg/m2 NPI:1831 [id number] Procedures Procedure Date / Time Performed Performing Clinician Sourc e URINE DRUG (IMMUNOASSAY) - 2021-11-23 21:21:00 Nichelle Allison COMPREHENSIVE DRUG SCREEN W/O REFLEX CT HEAD WO CONTRAST 2021-11-23 20:58:00 Nichelle Allison POCT TEST 2021-11-23 20:46:00 Nichelle Allison URINALYSIS 2021-11-23 20:43:00 Nichelle Allison NPI:1831 [id number] LIPASE 2021-11-23 20:27:00 Nichelle Allison NPI:1831 [id number] TROPONIN I 2021-11-23 20:27:00 Nichelle Allison NPI:1831 [id number] COMP. METABOLIC PANEL 2021-11-23 20:27:00 Nichelle Allison TYPE COPYIST I:[id number] ([id number]) CBC WITH DIFF 2021-11-23 20:27:00 Nichelle Allison NPI:1831 [id number] POCT GLUCOSE (AUTOMATED) 2021-11-23 20:15:00 Doctor Unassigned, No Name SARS-COV-2 COVID-19 2021-05-24 14:23:12 Doctor Unassigned, No TYPE COPYIST I:[id number] VACCINE,0.3ML,IM (PFIZER) Name SARS-COV-2 COVID-19 2021-05-03 14:59:29 Doctor Unassigned, No TYPE COPYIST I:[id number] VACCINE,0.3ML,IM (PFIZER) Name EMERGENCY SERVICES 2021-04-16 05:01:00 Doctor Unassigned, No NPI :[id number] AGREEMENTS AND Name AUTHORIZATIONS URINALYSIS 2021-03-17 03:09:00 Fabrice Chakraborty NPI:[id number] XR CHEST 1 VW 2021-03-17 01:45:07 Fabrice Chakraborty NPI:[id number] TROPONIN I 2021-03-17 01:35:00 Fabrice Chakraborty NPI:[id number] COMP. METABOLIC PANEL 2021-03-17 01:35:00 Fabrice Chakraborty NPI:18 [id number] ([id number]) CBC WITH DIFF 2021-03-17 01:35:00 Fabrice Chakraborty NPI:[id number] N-TERMINAL PRO-BNP 2021-03-17 01:35:00 Fabrice Chakraborty NPI:[id number] COVID-19 (ID NOW RAPID 2021-03-17 00:58:00 Brian Ray NPI:1 [id number] TESTING) CONSENT/REFUSAL FOR 2021-03-17 00:32:59 Doctor Unassigned, No TYPE COPYIST I:[id number] DIAGNOSIS AND TREATMENT Name COVID-19 (ID NOW RAPID 2021-02-19 17:04:00 Anali Patel NPI:1 [id number] TESTING) CT ABDOMEN PELVIS W 2021-02-19 16:41:18 Anali Patel NPI:1831 [id number] CONTRAST LIPASE 2021-02-19 15:58:00 Anali Patel NPI:[id number] COMP. METABOLIC PANEL 2021-02-19 15:58:00 Anali Patel NPI:18 [id number] ([id number]) CBC WITH DIFF 2021-02-19 15:58:00 Anali Patel NPI:[id number] URINALYSIS 2021-02-19 15:58:00 Anali Patel NPI:[id number] NOTICE OF PRIVACY PRACTICES 2021-02-19 15:30:46 Doctor Daniel lyle, No Name CONSENT/REFUSAL FOR 2021-02-19 15:30:30 Doctor Unassigned, No TYPE COPYIST I:[id number] DIAGNOSIS AND TREATMENT Name Plan of Care Planned Activity Planned Date Details Comments Source Encounters Start End Encounter Admission Attending Care Care Encounter Source Date/Time Date/Time Type Type Clinicians Facility Department ID 2021-05-20 Emergency [facility] [id number] NPI:183 18:48:04 [id number] 3650-11-01 Emergency [facility] [id number] NPI:183 12:43:40 [id number] 9457-05-07 2021-11-23 Emergency X ESTEFANY [facility] ERT [id number] NPI:183 15:07:00 17:03:00 NICHELLE [id number] 1 2021-11-23 2021-11-23 Emergency Sav Rondon [facility] 1.2.840. 114 [id number] NPI:183 15:07:00 17:03:00 Nichelle Allison 350.1.13. 10 [id number] [place] 4.2.7.2.686 [place] [id number] 2021-11-21 2021-11-21 Outpatient R [facility] [id number] -[id number] NPI:183 09:40:00 09:40:00 [id number] 1 2021-11-21 2021-11-21 Outpatient R [facility] [id number] NPI:183 09:40:00 09:40:00 [id number] 1 2021-05-24 2021-05-24 Outpatient R [facility] [id number] -[id number] NPI:183 09:30:00 09:30:00 [id number] 1 2021-05-24 2021-05-24 Outpatient R SHILPA FREDERICK [facility] [id number] NPI:183 09:30:00 09:30:00 [id number] 1 2021-05-24 2021-05-24 Imm/Inj Vaccine, [facility] [place] 1.2.840.114 [id number] NPI:183 08:47:51 08:57:51 Visit Shilpa Frederick [facility]L[place] 350.1.13.10 [id number] PEDIATRIC 4.2.7.2.686 [facility] [id number] 225 2021-05-03 2021-05-03 Outpatient R SHILPA FREDERICK [facility] [id number] NPI:183 09:40:00 09:59:35 [id number] 1 2021-05-03 2021-05-03 Imm/Inj Vaccine, [facility] [place] 1.2.840.114 [id number] NPI:183 09:17:43 09:59:35 Visit Shilpa Frederick 350.1.13.10 [id number] Pediatric 4.2.7.2.686 [facility] [id number] 2021-05-03 2021-05-03 Outpatient R [facility] [id number] -[id number] NPI:183 09:40:00 09:40:00 [id number] 1 2021-04-16 2021-04-16 Leti THEODORE 1.2.840.114 [id number] NPI:183 00:00:00 00:00:00 Only Unassigned, [place] 350.1.13.10 [id number] Chiawuli Tak [facility] 4.2.7.2.686 [id number] 2021-03-17 2021-03-17 Telephone EWELINA Nava 1.2.122.056 [id number] NPI:183 00:00:00 00:00:00 Miky JC 350.1.13.10 [id number] [facility] 42.7.2.686 [id number] 2021-03-16 2021-03-16 Emergency [facility] 1.2.840.114 [id number] NPI:183 20:08:00 23:24:00 Fabrice Harrell 350.1.13.10 1 [id number] [place] 4.2.7.2.686 [place] [id number] 2021-03-14 2021-03-14 Urgent Lydia Desouza [facility] 1.2.840.114 [id number] NPI:183 18:59:34 20:19:13 Care Unknown, Attending Health 350.1.13.10 [id number] Julio Cesar 4.2.7.2.686 Prem?Blea [id number] [place] [address] [facility] 2021-03-14 2021-03-14 Outpatient R [facility] [id number] -20 NPI:183 19:00:00 19:00:00 [id number] 1 2021-03-14 2021-03-14 Outpatient R UNKNOWN, [facility] [id number] NPI:183 19:00:00 19:00:00 ATTENDING 6910 [id number] 8625-08-03 2021-02-19 [email or web address] 1.2.385.876 [id number] NPI:183 10:49:00 14:48:00 Anali Harrell 350.1.13.10 1 [id number] [place] 4.2.7.2.686 [place] [id number] 084 2019-03-09 2019-03-09 [email or web address] 1.2.840.114 [id number] 00:00:00 00:00:00 Yehuda Harrell 350.1.13.10 [place] 4.2.7.2.686 Professio [id number] [facility] 2019-03-09 2019-03-09 Dick Arcos [facility] 1.2.840.114 [id number] NPI:183 00:00:00 00:00:00 Yehuda Harrell 350.1.13.10 [id number] [place] 4.2.7.2.686 Janaalejandro [id number] [address] Results Test Description Test Time Test Comments Results Result Comments Source TROPONIN I 2021-11-23 21:06:40 Test Item Value Reference Range Interpretation Comme nts TROPONIN I (test code = 0.005 ng/mL See_Comment [Au tomated message] The 0648616733) system which ge nerated this result tra nsmitted reference range : <=0.034. The reference r zoe was not used to int erpret this result as normal/abnormal . LYNDSAY (test code = LYNDSAY) Reference (Normal) Range (defined by the 99th percentile reference [...] biotin. Lab Interpretation Normal (test code = 53857-6) NPI:[id number]. METABOLIC PANEL (35308)2021-11-23 20:55:42 Test Item Value Reference Range Interpretation Comments NA (test code = 137 mmol/L 135-145 8787965626) K (test code = 4.3 mmol/L 3.5-5.0 3593544860) CL (test code = 104 mmol/L 98-108 4065370774) CO2 TOTAL (test code = 22 mmol/L 23-31 L 5840052322) AGAP (test code = 2-16 1109134658) BUN (test code = 15 mg/dL 7-23 9523816884) GLUCOSE (test code = 114 mg/dL 70-110 H 1594845638) CREATININE (test code = 0.68 mg/dL 0.50-1.04 8204054955) TOTAL BILI (test code = 0.5 mg/dL 0.1-1.9 7683458894) CALCIUM (test code = 9.1 mg/dL 8.6-10.6 3164622917) T PROTEIN (test code = 7.3 g/dL 6.3-8.2 2991214804) ALBUMIN (test code = 4.4 g/dL 3.5-5.0 9227604608) ALK PHOS (test code = 243 U/L 34-122 H 5627427857) ALTv (test code = 24 U/L 5-35 1742-6) AST(SGOT) (test code = 30 U/L 13-40 7892361025) eGFR (test code = mL/min/1.73m2 6246010709) LYNDSAY (test code = LYNDSAY) Association of [...] tests). Lab Interpretation Abnormal (test code = 42615-5) NPI:[id number] 20:55:22 Test Item Value Reference Range Interpretation Comments LIPASE (test code = 0038095311) 96 U/L 0-220 Lab Interpretation (test code = Normal 08897-0) NPI:[id number] 20:46:00 Test Item Value Reference Range Interpretation Comments POCT PREG (test code = 1605) negative On board controls acceptable with present C Line (test code = 3574) POCT PREG LOT # (test code = 3575) [id number] POCT PREG TEST DATE (test 04/18/2023 code = 3576) Lab Interpretation (test code = Normal 25713-7) NPI:[id number] WITH [id number] 20:40:38 Test Item Value Reference Range Interpretation Comments WBC (test code = See_Comment [Automated 5890-2) message] The sy stem which generated this result transmitted reference range : 4.30 - 11.10 10*3/?L. The reference range was not used to interpret this result as normal/abnormal . RBC (test code = See_Comment [Automated 489-8) message] The sy stem which generated this result transmitted reference range : 3.93 - 5.25 10*6/?L. The reference range was not used to interpret this result as normal/abnormal . HGB (test code = 13.3 g/dL 11.6-15.0 718-7) HCT (test code = 41.8 % 35.7-45.2 4544-3) MCV (test code = 86.0 fL 80.6-95.5 787-2) MCH (test code = 27.4 pg 25.9-32.8 785-6) MCHC (test code = 31.8 g/dL 31.6-35.1 786-4) RDW-SD (test code = 53.7 fL 39.0-49.9 H 31333-6) RDW-CV (test code = 17.2 % 12.0-15.5 H 788-0) PLT (test code = See_Comment H [Automated 147-3) message] The sy stem which generated this result transmitted reference range : 166 - 358 10*3/ ?L. The reference r zoe was not used to interpret this result as normal/abnormal . MPV (test code = 8.5 fL 9.5-12.9 L 92584-3) NRBC/100 WBC (test See_Comment [Automat ed code = 2611634662) message] The system which generated this result transmitted reference range : 0.0 - 10.0 /100 WBCs. The refer ence range was not u sed to interpret th is result as normal/abnormal . NRBC x10^3 (test code <0.01 See_Comment [Auto mated = 4801665899) message] The s ystem which generated this result transmitted reference range : 10*3/?L. The reference range was not used to interpret this result as normal/abnormal . GRAN MAT (NEUT) % 53.7 % (test code = 770-8) IMM GRAN % (test code 0.90 % = 2511578181) LYMPH % (test code = 32.6 % 736-9) MONO % (test code = 10.1 % 5905-5) EOS % (test code = 1.5 % 713-8) BASO % (test code = 1.2 % 706-2) GRAN MAT x10^3(ANC) 4.98 10*3/uL 1.88-7.09 (test code = 9145227718) IMM GRAN x10^3 (test 0.08 10*3/uL 0.00-0.06 H code = 1893939111) LYMPH x10^3 (test code 3.02 10*3/uL 1.32-3.29 = 731-0) MONO x10^3 (test code 0.94 10*3/uL 0.33-0.92 H = 742-7) EOS x10^3 (test code = 0.14 10*3/uL 0.03-0.39 711-2) BASO x10^3 (test code 0.11 10*3/uL 0.01-0.07 H = 704-7) Lab Interpretation Abnormal (test code = 88373-8) NPI:[id number] GLUCOSE (AUTOMATED)2021-11-23 20:17:33 Test Item Value Reference Range Interpretation Comments POCT GLU (test code = 111 mg/dL 70-110 H Notifi ed Provider 7419506830) Lab Interpretation (test Abnormal code = 70646-7) NPI:[id number] 03:22:48 Test Item Value Reference Range Interpretation Comments APPEARANCE (test code = Hazy Clear A 8400063138) COLOR (test code = Yellow Yellow 5477761554) PH (test code = 4.8-8.0 1879842954) SP GRAVITY (test code = 1.003-1.030 5471667743) GLU U QUAL (test code = Normal Normal 3830499570) BLOOD (test code = Negative Negative Interfere nce from 6312207209) ascorbic acid m ay cause false neg ative results. KETONES (test code = 5 mg/dL Negative A 4182225909) PROTEIN (test code = Negative Negative 2887-8) UROBILIN (test code = 4.0 mg/dL Normal A 1509024677) BILIRUBIN (test code = Negative Negative 2386373014) NITRITE (test code = Negative Negative 0446500809) LEUK GRUPO (test code = Negative Negative 9418955358) RBC/HPF (test code = See_Comment [Autom ated message] 6957638832) The system EVRST generated this result transmitted ref erence range: 0 - 3 HP F. The reference range was not used to int erpret this result as normal/abnormal . WBC/HPF (test code = <1 See_Comment [Autom ated message] 2269384361) The system EVRST generated this result transmitted ref erence range: 0 - 5 HP F. The reference range was not used to int erpret this result as normal/abnormal . BACTERIA (test code = Few Negative A 2549958678) SQ EPITH (test code = HPF 4459194055) Lab Interpretation Abnormal (test code = 20025-7) NPI:[id number] 03:22:48 Test Item Value Reference Range Interpretation Comments APPEARANCE (test code = Hazy Clear A 1248741513) COLOR (test code = Yellow Yellow 8004919830) PH (test code = 4.8-8.0 5088075802) SP GRAVITY (test code = 1.003-1.030 1123986597) GLU U QUAL (test code = Normal Normal 0403061110) BLOOD (test code = Negative Negative 9442577904) KETONES (test code = 5 mg/dL Negative A 4336513177) PROTEIN (test code = Negative Negative 2887-8) UROBILIN (test code = 4.0 mg/dL Normal A 6735235525) BILIRUBIN (test code = Negative Negative 7626099348) NITRITE (test code = Negative Negative 5322785936) LEUK GRUPO (test code = Negative Negative 2202067341) RBC/HPF (test code = See_Comment [Autom ated message] 2788447538) The system EVRST generated this result transmit sherice reference range : 0 - 3 HPF. The refe rence range was not u sed to interpret th is result as normal/abnormal . WBC/HPF (test code = <1 See_Comment [Autom ated message] 0314447157) The system EVRST generated this result transmit sherice reference range : 0 - 5 HPF. The refe rence range was not u sed to interpret th is result as normal/abnormal . BACTERIA (test code = Few Negative A 1835602396) SQ EPITH (test code = HPF 7650040174) Lab Interpretation (test Abnormal code = 04239-8) NPI:[id number] 02:45:00 Test Item Value Reference Interpretation Comments Range TROPONIN I (test 0.002 ng/mL See_Comment [Automated code = 4463346036) message] The system which generated this result [...] biotin. Lab Interpretation Normal (test code = 11201-1) NPI:[id number] 02:45:00 Test Item Value Reference Range Interpretation Comments TROPONIN I (test code = 0.002 ng/mL See_Comment [Au tomated [id number]) message] The sy stem which generated this result transmitted reference range : <=0.034. The reference range was not used to interpret this result as normal/abnormal . LYNDSAY (test code = LYNDSAY) Lab Interpretation Normal (test code = 17123-2) NPI:[id number] 02:41:57 Test Item Value Reference Range Interpretation Comments NT-proBNP (test code 169 pg/mL See_Comment H [Autom ated = [id number]) message] The system which generated this result transmitted reference range : <=125. The reference range was not used to interpret this result as normal/abnormal . LYNDSAY (test code = LYNDSAY) Biotin has been reported to cause a negative bias, interpret results relative to patient's use of biotin. Lab Interpretation Abnormal (test code = 55342-8) NPI:[id number] 02:41:57 Test Item Value Reference Range Interpretation Comments NT-proBNP (test code = 169 pg/mL See_Comment H [Aut omated message] [id number]) The system whic h generated this result transmit sherice reference range : <=125. The refe rence range was not u sed to interpret th is result as normal/abnormal . LYNDSAY (test code = LYNDSAY) Lab Interpretation (test Abnormal code = 53010-0) NPI:[id number]. METABOLIC PANEL (41951)2021-03-17 02:09:13 Test Item Value Reference Range Interpretation Comments NA (test code = 137 mmol/L 135-145 4205526017) K (test code = 4.2 mmol/L 3.5-5.0 3444079531) CL (test code = 102 mmol/L 98-108 1089412249) CO2 TOTAL (test code = 25 mmol/L 23-31 2001872112) AGAP (test code = 2-16 8425554308) BUN (test code = 18 mg/dL 7-23 3905670086) GLUCOSE (test code = 144 mg/dL 70-110 H 7592635593) CREATININE (test code = 0.77 mg/dL 0.50-1.04 2590750045) TOTAL BILI (test code = 0.4 mg/dL 0.1-1.3 6309665423) CALCIUM (test code = 8.9 mg/dL 8.6-10.6 9959319767) T PROTEIN (test code = 6.8 g/dL 6.3-8.2 0453952782) ALBUMIN (test code = 3.9 g/dL 3.5-5.0 9516249281) ALK PHOS (test code = 84 U/L 34-122 4612030593) ALTv (test code = 13 U/L 5-35 1742-6) AST(SGOT) (test code = 17 U/L 13-40 6305496663) eGFR (test code = mL/min/1.73m2 9463577812) LYNDSAY (test code = LYNDSAY) Association of [...] tests). Lab Interpretation Abnormal (test code = 75842-0) NPI:[id number]. METABOLIC PANEL (65549)2021-03-17 02:09:13 Test Item Value Reference Range Interpretation Comments NA (test code = 2155161244) 137 mmol/L 135-145 K (test code = 5739287706) 4.2 mmol/L 3.5-5.0 CL (test code = 2965684385) 102 mmol/L 98-108 CO2 TOTAL (test code = 2863676650) 25 mmol/L 23-31 AGAP (test code = 1245951007) 2-16 BUN (test code = 9758639612) 18 mg/dL 7-23 GLUCOSE (test code = 2136811039) 144 mg/dL 70-110 H CREATININE (test code = 0.77 mg/dL 0.50-1.04 3411601422) TOTAL BILI (test code = 0.4 mg/dL 0.1-1.8 8290504159) CALCIUM (test code = 5432014032) 8.9 mg/dL 8.6-10.6 T PROTEIN (test code = 4690233729) 6.8 g/dL 6.3-8.2 ALBUMIN (test code = 9110375477) 3.9 g/dL 3.5-5.0 ALK PHOS (test code = 0928801498) 84 U/L 34-122 ALTv (test code = 1742-6) 13 U/L 5-35 AST(SGOT) (test code = 6075032884) 17 U/L 13-40 eGFR (test code = 2880067169) mL/min/1.73m2 LYNDSAY (test code = LYNDSAY) Lab Interpretation (test code = Abnormal 40154-6) NPI:[id number] WITH [id number] 01:56:33 Test Item Value Reference Range Interpretation Comments WBC (test code = See_Comment H [Automated 7123-2) message] The sy stem which generated this result transmitted reference range : 4.30 - 11.10 10*3/?L. The reference range was not used to interpret this result as normal/abnormal . RBC (test code = See_Comment [Automated 253-8) message] The sy stem which generated this [...] (test code = 55.5 fL 39.0-49.9 H 66393-6) RDW-CV (test code = 18.9 % 12.0-15.5 H 788-0) PLT (test code = See_Comment H [Automated 777-3) message] The sy stem which generated this result transmitted reference range : 166 - 358 10*3/ ?L. The reference r zoe was not used to interpret this result as normal/abnormal . MPV (test code = 8.2 fL 9.5-12.9 L 08359-8) NRBC/100 WBC (test See_Comment [Automat ed code = 2867420930) message] The system which generated this result transmitted reference range : 0.0 - 10.0 /100 WBCs. The refer ence range was not u sed to interpret th is result as normal/abnormal . NRBC x10^3 (test code <0.01 See_Comment [Auto mated = 2458399282) message] The s ystem which generated this result transmitted reference range : 10*3/?L. The reference range was not used to interpret this result as normal/abnormal . GRAN MAT (NEUT) % 61.7 % (test code = 770-8) IMM GRAN % (test code 0.80 % = 1736070034) LYMPH % (test code = 28.5 % 736-9) MONO % (test code = 6.3 % 5905-5) EOS % (test code = 1.8 % 713-8) BASO % (test code = 0.9 % 706-2) GRAN MAT x10^3(ANC) 7.31 10*3/uL 1.88-7.09 H (test code = 2136109761) IMM GRAN x10^3 (test 0.09 10*3/uL 0.00-0.06 H code = 8472687064) LYMPH x10^3 (test code 3.38 10*3/uL 1.32-3.29 H = 731-0) MONO x10^3 (test code 0.75 10*3/uL 0.33-0.92 = 742-7) EOS x10^3 (test code = 0.21 10*3/uL 0.03-0.39 711-2) BASO x10^3 (test code 0.11 10*3/uL 0.01-0.07 H = 704-7) Lab Interpretation Abnormal (test code = 34914-2) NPI:[id number] WITH [id number] 01:56:33 Test Item Value Reference Range Interpretation [...] (test code = 55.5 fL 39.0-49.9 H 19902-3) RDW-CV (test code = 18.9 % 12.0-15.5 H 788-0) PLT (test code = See_Comment H [Automated 777-3) message] The sy stem which generated this result transmitted reference range : 166 - 358 10*3/ ?L. The reference r zoe was not used to interpret this result as normal/abnormal . MPV (test code = 8.2 fL 9.5-12.9 L 52693-2) NRBC/100 WBC (test See_Comment [Automat ed code = 9367820031) message] The system which generated this result transmitted reference range : 0.0 - 10.0 /100 WBCs. The refer ence range was not u sed to interpret th is result as normal/abnormal . NRBC x10^3 (test code <0.01 See_Comment [Auto mated = 6041628985) message] The s ystem which generated this result transmitted reference range : 10*3/?L. The reference range was not used to interpret this result as normal/abnormal . GRAN MAT (NEUT) % 61.7 % (test code = 770-8) IMM GRAN % (test code 0.80 % = 0776871119) LYMPH % (test code = 28.5 % 736-9) MONO % (test code = 6.3 % 5905-5) EOS % (test code = 1.8 % 713-8) BASO % (test code = 0.9 % 706-2) GRAN MAT x10^3(ANC) 7.31 10*3/uL 1.88-7.09 H (test code = 5356587060) IMM GRAN x10^3 (test 0.09 10*3/uL 0.00-0.06 H code = 0841251439) LYMPH x10^3 (test code 3.38 10*3/uL 1.32-3.29 H = 731-0) MONO x10^3 (test code 0.75 10*3/uL 0.33-0.92 = 742-7) EOS x10^3 (test code = 0.21 10*3/uL 0.03-0.39 711-2) BASO x10^3 (test code 0.11 10*3/uL 0.01-0.07 H = 704-7) Lab Interpretation Abnormal (test code = 84188-5) NPI:[id number] (ID NOW RAPID TESTING)2021-03-17 01:38:12 Test Item Value Reference Range Interpretation Comments SARS-CoV-2 Rapid ID NOW Not Detected Not Detected (test code = 28308-8) LYNDSAY (test code = LYNDSAY) ID NOW COVID-19 Assay is an isothermal nucleic acid amplification test intended for the qualitative detection of nucleic acid from SARS-CoV-2 viral RNA in nasopharyngeal (TYPE COPYIST) specimens. It is used under Emergency Use [...] indicated. Lab Interpretation Normal (test code = 12624-7) NPI:[id number] (ID NOW RAPID TESTING)2021-03-17 01:38:12 Test Item Value Reference Range Interpretation Comments SARS-CoV-2 Rapid ID NOW (test Not Detected Not Detected code = 39115-3) LYNDSAY (test code = LYNDSAY) Lab Interpretation (test code = Normal 23682-7) NPI:[id number] (ID NOW RAPID TESTING)2021-02-19 17:42:45 Test Item Value Reference Range Interpretation Comments SARS-CoV-2 Rapid ID NOW Not Detected Not Detected (test code = 97017-7) LYNDSAY (test code = LYNDSAY) ID NOW COVID-19 Assay is an isothermal nucleic acid amplification test intended for the qualitative detection of nucleic acid from SARS-CoV-2 viral RNA in nasopharyngeal (TYPE COPYIST) specimens. It is used under Emergency Use Authorization (EUA) by [facility]. The limit of detection (LOD) of the [...] indicated. Lab Interpretation Normal (test code = 48070-4) NPI:[id number] ABDOMEN PELVIS W [id number] 17:24:55Thickening of the gastric antrum and duodenal bulb could be fromunderdistention, the differential would include sequela of peptic ulcerdisease. No findings of ulcer perforation. Otherwise, no acute intra-abdominal or pelvic abnormality. Stable thickening and nodularity of the left adrenal gland. RL: 8722 Patient name: EUSEBIA ONTIVEROSB: 1970 51 years [...] 02/19/2021 12:26 PM CDT Patient name: EUSEBIA MOY OMASDOB: 1970 51 years EXAMINATION: CT ABDOMEN [...] nodularity of the left adrenal gland.RL: 8722 NPI:[id number] 17:03:40 Test Item Value Reference Range Interpretation Comments APPEARANCE (test code = Hazy Clear A 0217497927) COLOR (test code = Mabel Yellow A 3514783371) PH (test code = 4.8-8.0 1470013852) SP GRAVITY (test code = 1.003-1.030 H 9521430367) GLU U QUAL (test code = Normal Normal 3995819220) BLOOD (test code = Negative Negative 1413336642) KETONES (test code = 5 mg/dL Negative A 5871623855) PROTEIN (test code = 30 mg/dL Negative A 2887-8) UROBILIN (test code = 4.0 mg/dL Normal A 8472012367) BILIRUBIN (test code = 4 mg/dL Negative A 9838114428) NITRITE (test code = Negative Negative 7014596353) LEUK GRUPO (test code = Negative Negative 1496458727) RBC/HPF (test code = See_Comment H [Autom ated message] 2665524747) The system EVRST generated this result transmit sherice reference range : 0 - 3 HPF. The refe rence range was not u sed to interpret th is result as normal/abnormal . WBC/HPF (test code = See_Comment H [Autom ated message] 4260508347) The system EVRST generated this result transmit sherice reference range : 0 - 5 HPF. The refe rence range was not u sed to interpret th is result as normal/abnormal . BACTERIA (test code = Few Negative A 5125895168) MUCOUS (test code = Moderate Negative LPF A 5419252057) SQ EPITH (test code = HPF 1104951804) CA OXALATE (test code = See_Comment H [Au tomated message] 9554816295) The system EVRST generated this result transmit sherice reference range : <=1 HPF. The refere nce range was not u sed to interpret th is result as normal/abnormal . Ictotest (test code = Negative 5621099457) Lab Interpretation (test Abnormal code = 02457-2) NPI:[id number] Metabolic [id number] 16:34:55 Test Item Value Reference Range Interpretation Comments NA (test code = 139 mmol/L 135-145 0308447774) K (test code = 4.3 mmol/L 3.5-5.0 0814806900) CL (test code = 105 mmol/L 98-108 4823669536) CO2 TOTAL (test code 26 mmol/L 23-31 = 4865681271) AGAP (test code = 2-16 0607382822) BUN (test code = 11 mg/dL 7-23 5571083306) GLUCOSE (test code = 95 mg/dL 70-110 2551665444) CREATININE (test code 0.70 mg/dL 0.50-1.04 = 3661789761) TOTAL BILI (test code 0.6 mg/dL 0.1-1.1 = 3683804581) CALCIUM (test code = 8.9 mg/dL 8.6-10.6 0640383438) T PROTEIN (test code 7.7 g/dL 6.3-8.2 = 9650967407) ALBUMIN (test code = 4.1 g/dL 3.5-5.0 2071033039) ALK PHOS (test code = 79 U/L 34-122 7658479780) ALTv (test code = 10 U/L 5-35 1742-6) AST(SGOT) (test code 22 U/L 13-40 = 7838816241) eGFR (test code = mL/min/1.73m2 3889468558) LYNDSAY (test code = LYNDSAY) Association of [...] or urine or abnormalities in imaging tests). NPI:[id number], [id number] 16:34:14 Test Item Value Reference Range Interpretation Comments LIPASE (test code = 4675417657) 45 U/L 0-220 Lab Interpretation (test code = Normal 48625-1) NPI:[id number] with [id number] 16:21:12 Test Item Value Reference Range Interpretation Comments WBC (test code = See_Comment [Automated 6690-2) message] The sy stem which [...] (test code = 54.4 fL 39.0-49.9 H 89078-6) RDW-CV (test code = 18.3 % 12.0-15.5 H 788-0) PLT (test code = See_Comment H [Automated 777-3) message] The sy stem which generated this result transmitted reference range : 166 - 358 10*3/ ?L. The reference r zoe was not used to interpret this result as normal/abnormal . MPV (test code = 8.5 fL 9.5-12.9 L 34749-9) NRBC/100 WBC (test See_Comment [Automat ed code = 1091151953) message] The system which generated this result transmitted reference range : 0.0 - 10.0 /100 WBCs. The refer ence range was not u sed to interpret th is result as normal/abnormal . NRBC x10^3 (test code <0.01 See_Comment [Auto mated = 3082091386) message] The s ystem which generated this result transmitted reference range : 10*3/?L. The reference range was not used to interpret this result as normal/abnormal . GRAN MAT (NEUT) % 78.3 % (test code = 770-8) IMM GRAN % (test code 0.40 % = 2352858143) LYMPH % (test code = 15.4 % 736-9) MONO % (test code = 4.8 % 5905-5) EOS % (test code = 0.1 % 713-8) BASO % (test code = 1.0 % 706-2) GRAN MAT x10^3(ANC) 7.15 10*3/uL 1.88-7.09 H (test code = 1464970945) IMM GRAN x10^3 (test 0.04 10*3/uL 0.00-0.06 code = 9661055728) LYMPH x10^3 (test code 1.41 10*3/uL 1.32-3.29 = 731-0) MONO x10^3 (test code 0.44 10*3/uL 0.33-0.92 = 742-7) EOS x10^3 (test code = <0.03 0.03-0.39 L 711-2) BASO x10^3 (test code 0.09 10*3/uL 0.01-0.07 H = 704-7) Lab Interpretation Abnormal (test code = 56572-3) "
[2021-11-24] MEDS ORDERED: LORazepam 2 MG/ML VIAL ONE (17:11)
[2021-11-24] MEDS ORDERED: ONDANSETRON 4 MG/2 ML VIAL ONE (17:16)
[2021-11-24] MEDS ORDERED: NA CHLORIDE 0.9% 1,000 ML ONE ×2 (17:16→18:42)
[2021-11-24 17:25] LABS: Absolute Lymphocytes (CBC) 2.7 K/uL (0.7-4.9); Hematocrit 38.3 % (36.0-45.0); MPV 6.3 fL (7.6-11.3); RBC Red Blood Cell Count 4.52 M/uL (3.86-4.86)
[2021-11-24 17:35] LABS: Protime INR 0.96
[2021-11-24 17:43] LABS: ALT/SGPT 27 U/L (12-78); AST/SGOT 16 U/L (15-37); Albumin 3.3 g/dL (3.4-5.0); Alkaline Phosphatase 233 U/L (45-117); BUN Blood Urea Nitrogen 10 mg/dL (7-18); Bicarbonate 24 mmol/L (21-32); Bilirubin Direct < 0.1 mg/dL (0-0.2); Bilirubin Total 0.2 mg/dL (0.2-1.0); Glucose Level 120 mg/dL (74-106); Magnesium 2.1 mg/dL (1.8-2.4); NT PRO-BNP 686 pg/mL (<125); Potassium 3.7 mmol/L (3.5-5.1); Protein, Total 6.8 g/dL (6.4-8.2); Sodium Level 139 mmol/L (136-145); Troponin High Sensitivity 9.3 pg/mL (<58.9)
[2021-11-24] MEDS ORDERED: LEVETIRACETAM 500 MG/5 ML VIAL IV ONE (17:49)
[2021-11-24] MEDS ORDERED: FENTANYL CITR 100 MCG/2 ML ONE (17:50)
[2021-11-24] MEDS ORDERED: NA CHLORIDE 0.9% 250 ML ONE (17:50)
--- NOTE | 2021-11-24 17:50 | RAD REPORT ---
EXAM DESCRIPTION: [facility] Single View11/24/2021 5:41 pm CLINICAL HISTORY: Chest pain COMPARISON: October 2021 FINDINGS: The lungs appear clear of acute infiltrate. The heart is normal size IMPRESSION: No acute abnormalities displayed
[2021-11-24] MEDS ORDERED: MORPHINE 4 MG/ML SYR ONE (19:01)
--- NOTE | 2021-11-24 19:06 | RAD REPORT ---
EXAM DESCRIPTION: CT - Head Brain Wo Cont - 11/24/2021 6:53 pm CLINICAL HISTORY: Seizure COMPARISON: October 2021 TECHNIQUE: Computed axial tomography of the head was obtained. IV contrast was not requested. All CT scans are performed using dose optimization technique as appropriate and may include automated exposure control or mA/KV adjustment according to patient size. FINDINGS: An intracranial bleed is not seen . The ventricles are normal in caliber. No significant hypodense areas within the brain visualized No extra-axial fluid collection is noted. Mild sinusitis IMPRESSION: No acute intracranial abnormality is seen. If patient's symptoms persist MRI of the bra in would be recommended.
[2021-11-24 20:00] LABS: Urine Blood Trace-intact (Negative); Urine Glucose Negative (Negative); Urine Protein Negative (Negative); Urine Specific Gravity >=1.030 (1.005-1.030)
[2021-11-24 20:17] LABS: Barbiturates NEGATIVE (NEGATIVE); Benzodiazepines POSITIVE (NEGATIVE); Cocaine POSITIVE (NEGATIVE); METHAMPHETAM NEGATIVE (NEGATIVE); Methadone NEGATIVE (NEGATIVE); Opiates POSITIVE (NEGATIVE); Phencyclidine NEGATIVE (NEGATIVE); THC Cannibis NEGATIVE (NEGATIVE)
--- NOTE | 2021-11-24 21:25 | EDPHYS ---
Physician Documentation [facility] Name: Heather Coon Age: 51 yrs Sex: Female : 1970 Arrival Date: 11/24/2021 Time: 16:29 Bed 19 Private MD: ED Physician Derrick Santillan HPI: 11/24 16:35 This 51 yrs old Female presents to ER via EMS with complaints of Seizure. cp 16:35 The patient presents with a history of multiple seizures, an unknown number, the cp episode(s) was witnessed, by EMS personnel. 16:35 Character of seizure(s): Loss of consciousness: the patient experienced loss of cp consciousness, brief. 16:35 Seizure Hx: Seizure medications: Keppra. Associated injury: The patient did not suffer cp any apparent associated injury. Current symptoms: headache, that is severe, chest pain. Historical: - Allergies: 16:31 Green Tea; bp 16:32 fluoxetine; bp - Home Meds: 16:31 levetiracetam Oral [Active]; Prozac Oral [Active]; bp - PMHx: 16:31 Anxiety; Bipolar disorder; Cancer-Cervical; Chronic pain; Depression; Diverticulitis; bp Herniated Back Disc; Hypertension; intestinal mass; Myocardial infarction; pt reports hx of seizures; Spastic Muscles; stroke; - PSHx: 16:31 cervical fusion; Cholecystectomy; Tonsillectomy; bp - Immunization history:: Adult Immunizations up to date. - Social history:: Smoking status: unknown. ROS: 16:40 Constitutional: Negative for body aches, chills, fever, poor PO intake. cp 16:40 Eyes: Negative for injury, pain, redness, and discharge. cp 16:40 Cardiovascular: Positive for chest pain, Negative for edema, palpitations. 16:40 Respiratory: Negative for cough, shortness of breath, wheezing. 16:40 Abdomen/GI: Negative for abdominal pain, vomiting, diarrhea, constipation. 16:40 : Negative for urinary symptoms. 16:40 Neuro: Positive for headache, seizure activity. 16:40 All other systems are negative. cp Exam: 16:45 Constitutional: The patient appears in no acute distress, alert, awake, cp non-diaphoretic, non-toxic, well developed, well nourished. 16:45 Head/Face: Normocephalic, atraumatic. cp 16:45 Eyes: Periorbital structures: appear normal, Pupils: equal, round, and reactive to light and accomodation, Extraocular movements: intact throughout, Conjunctiva: normal, no exudate, no injection, Sclera: no appreciated abnormality, Lids and lashes: appear normal, bilaterally. 16:45 ENT: External ear(s): are unremarkable, Ear canal(s): are normal, clear, TM's: dullness, bilaterally, Nose: is normal, Mouth: Lips: moist, Oral mucosa: pink and intact, moist, Posterior pharynx: Airway: no evidence of obstruction, patent. 16:45 Neck: ROM/movement: is normal, is supple, without pain, no range of motions limitations, no meningismus. 16:45 Chest/axilla: Inspection: normal. 16:45 Cardiovascular: Rate: tachycardic, Rhythm: regular, Edema: is not appreciated, JVD: is not appreciated. 16:45 Respiratory: the patient does not display signs of respiratory distress, Respirations: normal, no use of accessory muscles, no retractions, labored breathing, is not present, Breath sounds: are clear throughout, no decreased breath sounds, no stridor, no wheezing. 16:45 Abdomen/GI: Inspection: abdomen appears normal, Palpation: abdomen is soft and non-tender, in all quadrants. 16:45 Back: CVA tenderness, is absent. 16:45 Musculoskeletal/extremity: Extremities: all appear grossly normal, with no appreciated pain with palpation. 16:45 Neuro: Orientation: to person, place \T\ time. Mentation: able to follow commands, slow to respond, Motor: moves all fours, strength is normal, Sensation: no obvious gross deficits. 17:27 ECG was reviewed by the Attending Physician. cp Vital Signs: 16:30 BP 156 / 90; Pulse 108; Resp 17; Temp 98; Pulse Ox 98% ; bp 17:31 BP 154 / 95; Pulse 115; Resp 18; Pulse Ox 98% ; bp Nicole Coma Score: 16:32 Eye Response: spontaneous(4). Verbal Response: oriented(5). Motor Response: obeys bp commands(6). Total: 15. MDM: 16:31 Patient medically screened. [facility] [place] 19:35 Physician consultation: Javier Ireland MD was called at 19:35, was contacted at 19:35, regarding consult, patient's condition, wants Keppra change and to have patient take 1000 mg in morning and 1500 mg in evening. Patient may be discharged to home and can f/u in clinic. 20:30 Data reviewed: vital signs, nurses notes, lab test result(s), EKG, radiologic studies, cp CT scan, plain films. 20:30 Test interpretation: by ED physician or midlevel provider: ECG, plain radiologic cp studies. Counseling: I had a detailed discussion with the patient and/or guardian regarding: the historical points, exam findings, and any diagnostic results supporting the discharge/admit diagnosis, the presence of at least one elevated blood pressure reading (>120/80) during this emergency department visit, lab results, radiology results. ED course: Discussed results of labs, EKG and initial troponin that returned wnl. Patient's urine positive for cocaine. Patient reports last use of cocaine 2 weeks ago when questioned. No further seizure activity observed or reported while monitoring patient. Will repeat troponin and if negative discharge to home. Patient informed DR Ireland wants patient to take Keppra 1000 mg in the morning and 1500 mg in evening and f/u in clinic. 11/24 16:37 Order name: Acetaminophen; Complete Time: 18:11 cp 11/24 16:37 Order name: Basic Metabolic Panel; Complete Time: 18:11 cp 11/24 18:18 Interpretation: Normal except: CL 108; GLUC 120; GFR 76; CA 8.1. cp 11/24 16:37 Order name: CBC with Diff; Complete Time: 17:34 cp 11/24 17:34 Interpretation: Normal except: PLT 440; RDW 18.1; MPV 6.3; BASO% 2.2. cp 11/24 16:37 Order name: ETOH Level; Complete Time: 18:11 cp 11/24 16:37 Order name: Hepatic Function; Complete Time: 18:11 cp 11/24 19:10 Interpretation: Normal except: ALK 233; ALB 3.3; A/G 0.9. cp 11/24 16:37 Order name: PT-INR; Complete Time: 18:11 cp 11/24 16:37 Order name: Ptt, Activated; Complete Time: 18:11 cp 11/24 16:37 Order name: Salicylate; Complete Time: 18:11 cp 11/24 16:37 Order name: Urine Drug Screen; Complete Time: 20:18 cp 11/24 20:18 Interpretation: Normal except: BZO POSITIVE; SANTIAGO POSITIVE; OPI POSITIVE. cp 11/24 16:37 Order name: Troponin HS; Complete Time: 18:11 cp 11/24 19:11 Interpretation: Troponin HS 9.3; Reviewed. cp 11/24 16:37 Order name: BNP; Complete Time: 18:11 cp 11/24 19:10 Interpretation: Reviewed. cp 11/24 16:37 Order name: Magnesium; Complete Time: 18:11 cp 11/24 20:01 Order name: Urine Dipstick-Ancillary; Complete Time: 20:18 EDMS 11/24 16:37 Order name: EKG; Complete Time: 16:37 cp 11/24 16:37 Order name: EKG - Nurse/Tech; Complete Time: 17:21 cp 11/24 16:37 Order name: IV Saline Lock; Complete Time: 17:21 cp 11/24 16:37 Order name: Labs collected and sent; Complete Time: 17:21 cp 11/24 16:37 Order name: Urine Dipstick-Ancillary (obtain specimen); Complete Time: 20:01 cp 11/24 16:44 Order name: XRAY Chest (1 view); Complete Time: 18:11 cp 11/24 18:21 Order name: CT Head Brain wo Cont; Complete Time: 19:09 cp 08 20:40 Order name: Troponin HS cp 11/24 18:21 Order name: Urine Test (obtain specimen); Complete Time: 20:01 cp EC:27 Rate is 108 beats/min. Rhythm is regular. KS interval is normal. QRS interval is cp normal. QT interval is normal. Interpreted by me. Reviewed by me. Administered Medications: 17:15 Drug: Zofran (Ondansetron) 4 mg Route: IVP; Site: right forearm; ss 17:32 Follow up: Response: No adverse reaction bp 17:18 Drug: Ativan (LORazepam) 2 mg Route: IVP; Site: right forearm; ss 17:32 Follow up: Response: No adverse reaction bp 17:40 Drug: Keppra (levETIRAcetam) 1000 mg Route: IV; Rate: calculated rate; Site: right bp forearm; 17:50 Drug: fentaNYL (PF) 25 mcg Route: IVP; Site: right forearm; bp 18:26 Follow up: Response: No adverse reaction bp 18:30 Drug: NS 0.9% 1000 ml Route: IV; Rate: 125 ml/hr; Site: right forearm; bp 18:50 Drug: morphine 4 mg Route: IVP; Site: right forearm; bp Disposition Summary: 11/24/21 21:24 Eloped Disposition: after being seen by provider ld1 Reason: unknown ld1 Signatures: Dispatcher [employer] EDMS Derrick Santillan MD MD cha Smirch, Shelby, RN RN ss Derrick Castillo PA PA cp Peltier, Brian, RN RN Randee Coronado RN RN ld1 Mariola Mahmood PA PA sb3 Corrections: (The following items were deleted from the chart) 16:55 16:37 Suicide Screening ([place]) ordered. cp bp 20:01 18:21 [place] ordered. cp kd3 11/25 15:40 11/24 16:35 Current symptoms: headache, that is severe, cp cp
--- NOTE | 2021-11-24 21:25 | ER ---
Nurse's Notes [facility] Name: Heather Coon Age: 51 yrs Sex: Female : 1970 Arrival Date: 11/24/2021 Time: 16:29 Bed 19 Private MD: Diagnosis: Presentation: 11/24 16:30 Chief complaint: EMS states: WITNESSED SEIZURE. Coronavirus screen: At this time, the bp client does not indicate any symptoms associated with coronavirus-19. Ebola Screen: No symptoms or risks identified at this time. Initial Sepsis Screen: Does the patient meet any 2 criteria? HR > 90 bpm. No. Patient's initial sepsis screen is negative. Does the patient have a suspected source of infection? No. Patient's initial sepsis screen is negative. Risk Assessment: Do you want to hurt yourself or someone else? Patient reports no desire to harm self or others. Onset of symptoms is unknown. Care prior to arrival: Medication(s) given: 5 MG VERSED. 16:30 Method Of Arrival: EMS: [facility] bp 16:30 Acuity: ANDER 3 bp Triage Assessment: 16:32 General: Appears in no apparent distress. comfortable, obese, unkempt, Behavior is bp cooperative, appropriate for age, anxious. Pain: Denies pain. EENT: No deficits noted. Neuro: Level of Consciousness is awake, alert, obeys commands, Oriented to Appropriate for age. Cardiovascular: No deficits noted. Respiratory: No deficits noted. GI: No signs and/or symptoms were reported involving the gastrointestinal system. : No signs and/or symptoms were reported regarding the genitourinary system. Derm: No deficits noted. Musculoskeletal: No deficits noted. Historical: - Allergies: 16:31 Green Tea; bp 16:32 fluoxetine; bp - Home Meds: 16:31 levetiracetam Oral [Active]; Prozac Oral [Active]; bp - PMHx: 16:31 Anxiety; Bipolar disorder; Cancer-Cervical; Chronic pain; Depression; Diverticulitis; bp Herniated Back Disc; Hypertension; intestinal mass; Myocardial infarction; pt reports hx of seizures; Spastic Muscles; stroke; - PSHx: 16:31 cervical fusion; Cholecystectomy; Tonsillectomy; bp - Immunization history:: Adult Immunizations up to date. - Social history:: Smoking status: unknown. Screenin:33 Abuse screen: Denies threats or abuse. Denies injuries from another. Nutritional bp screening: No deficits noted. Tuberculosis screening: No symptoms or risk factors identified. Fall Risk No fall in past 12 months (0 pts). Secondary diagnosis (15 points) seizures, CVA. Assessment: 16:33 General: SEE TRIAGE NOTE. bp 17:32 Reassessment: No changes from previously documented assessment. Patient and/or family bp updated on plan of care and expected duration. Pain level reassessed. 21:24 Reassessment: Patient eloped. ld1 Vital Signs: 16:30 BP 156 / 90; Pulse 108; Resp 17; Temp 98; Pulse Ox 98% ; bp 17:31 BP 154 / 95; Pulse 115; Resp 18; Pulse Ox 98% ; bp Nicole Coma Score: 16:32 Eye Response: spontaneous(4). Verbal Response: oriented(5). Motor Response: obeys bp commands(6). Total: 15. ED Course: 16:29 Patient arrived in ED. bp 16:30 Kendall Guerrero NP is PHCP. pm1 16:30 Derrick Santillan MD is Attending Physician. pm1 16:31 Triage completed. bp 16:31 Derrick Castillo PA is PHCP. pm1 16:32 Arm band placed on. bp 16:33 Patient has correct armband on for positive identification. Bed in low position. Call bp light in reach. Side rails up X2. Adult w/ patient. 16:35 Torrey Whittington, RN is Primary Nurse. bp 17:15 Inserted saline lock: 20 gauge in right forearm, using aseptic technique. Blood ss collected. Patient maintains SpO2 saturation greater than 95% on room air. 17:31 XRAY Chest (1 view) Sent. bp 17:32 EKG done, by ED staff, reviewed by Derrick HURST. mb7 17:43 XRAY Chest (1 view) In Process Unspecified. EDMS 18:55 CT Head Brain wo Cont In Process Unspecified. EDMS 19:20 Primary Nurse role handed off by Torrey Whittington, RN mw2 20:01 Blanca Ratliff, BETH is Primary Nurse. kd3 Administered Medications: 17:15 Drug: Zofran (Ondansetron) 4 mg Route: IVP; Site: right forearm; ss 17:32 Follow up: Response: No adverse reaction bp 17:18 Drug: Ativan (LORazepam) 2 mg Route: IVP; Site: right forearm; ss 17:32 Follow up: Response: No adverse reaction bp 17:40 Drug: Keppra (levETIRAcetam) 1000 mg Route: IV; Rate: calculated rate; Site: right bp forearm; 17:50 Drug: fentaNYL (PF) 25 mcg Route: IVP; Site: right forearm; bp 18:26 Follow up: Response: No adverse reaction bp 18:30 Drug: NS 0.9% 1000 ml Route: IV; Rate: 125 ml/hr; Site: right forearm; bp 18:50 Drug: morphine 4 mg Route: IVP; Site: right forearm; bp Outcome: 21:24 Patient left the ED. ld1 Signatures: Dispatcher [employer] EDMS Rocío Canas RN RN ss Kendall Guerrero, RUBY DATA COLLECTOR pm1 Torrey Whittington RN RN Marlyn Marrero 2 Randee Mccullough RN RN ld1 Blanca Ratliff RN RN 3 Shy Gonzalez [facility]
[2021-11-24 22:35] VITALS: TEMP 98; O2SAT 98
[2021-11-24 22:42] VITALS: BP 154/95
--- NOTE | 2021-11-25 08:57 | EKG ---
Test Date: 2021-11-24 Test Time: 17:20:13 Rate And Cost Analyst: MB MEASUREMENT RESULTS: Intervals: Rate: 108 PA: 132 QRSD: 82 QT: 362 QTc: 485 [place]ley: P: 75 PA: 132 QRS: 115 T: 48 INTERPRETIVE STATEMENTS: Sinus tachycardia Right atrial enlargement Lateral infarct, age undetermined Abnormal ECG Compared to ECG 11/13/2021 22:38:12 Atrial abnormality now present Myocardial infarct finding now present Sinus rhythm no longer present Right-axis deviation no longer present Electronically Signed On 11-25-21 08:56:15 CDT by Migel Warren
== END 2021-11-24 21:24 | disposition left against medical advice (07) ==
LOC: ER 16:29
DX: R56.9 Unspecified convulsions (principal); R51.9 Headache, unspecified; I10 Essential (primary) hypertension; G89.29 Other chronic pain; F31.9 Bipolar disorder, unspecified; Z88.8 Allergy status to other drugs, medicaments and biological substances; Z91.018 Allergy to other foods
CPT/HCPCS: 36415; 70450; 71045; 80048; 80076; 80307; 80320; 80329; 81003; 83735; 83880; 84484; 85025; 85610; 85730; 93005; 96374; 96375; 99284; J1953; J2405; J3010; J7030; J7050

== ENCOUNTER 2021-12-08 22:44 | Inpatient (IN) | payer SELFPAY ==
--- OUTSIDE RECORDS SUMMARY | 2021-12-08 22:50 | XMS REPORT | Continuity of Care Document ---
:1970 Author Organization [facility] t Address [address] [place] [address] Care Team Providers Name Role Phone PCP, DOES NOT HAVE A Primary Care Physician Unavailable Angelia ALLISON Attending Clinician Unavailable Alcon ELIZONDO Attending Clinician Angelia Bishop Attending Clinician OTONIEL Attending Clinician Unavailable Carlito Graham Attending Clinician Unavailable Otoniel ELIZONDO Attending Clinician Doctor Unassigned, Name Attending Clinician Unavailable Brandy CAMPOS Attending Clinician Unavailable Palmer SUAREZ Attending Clinician Deo BRONSONP Attending Clinician Unknown Attending Clinician Unavailable UNKNOWN Attending Clinician Unavailable Benjamin Rascon Attending Clinician Isrrael ELIZONDO, Gene Attending Clinician Angelia ALLISON Admitting Clinician Unavailable Payers Payer Name Policy Type Policy Number [...] Bilateral Disease Active Uni vers acute acute 3 ity of otitis otitis 00:00: [place] media, media, 00 Medical recurrence recurrence Br anch not not specified, specified, unspecifie unspecifie d otitis d otitis media type media type Lumbar Lumbar Disease Active Univers spinal spinal 09-27 ity of stenosis stenosis 00:00: [place] [facility] Right-side Right-side Disease Active U nivers d low back d low back 3 it y of pain with pain with 00:[place] sciatica, sciatic[place], 00 Medi kwame sciatica sciatica Branch laterality laterality unspecifie unspecifie d d Generalize Generalize Disease Active U nivers d anxiety d anxiety 09-27 ity of disorder disorder 00:00: Medical Branch Agoraphobi Agoraphobi Disease Active U nivers a a 3 ity of 00:00: [place] [facility] Bipolar Bipolar Disease Active Univers disorder, disorder, 3 it[place] of in partial in partial 00:[place] remission, remission, 00 Me dical most most Branch recent recent episode episode manic manic 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 09-27 it y of disorder disorder 00:00: [place] [facility] Breast Breast Disease Active Univers mass, left mass, left 3 it y of 00:00: [place] [facility] Anxiety Anxiety Disease Active Univers 3 ity of 00:00: Medical Branch Lower back Lower back Disease Active U nivers pain pain 3 ity of 00:00: [place] [facility] High blood High blood Disease Active U nivers pressure pressure 3 ity of 00:00: [place] [facility] COPD COPD Disease Active Univers (chronic (chronic 3 ity of obstructiv obstructiv 00:00: [place] e e 00 Medical pulmonary pulmonary Bran ch disease) disease) Obesity Obesity Disease Active Univers 3- ity of 00:00: [place] 00 Medical Branch Allergies, Adverse Reactions, Alerts Allergy Allergy Status Severity Reaction(s) Onset Inactive Treating Comm ents Source Name Type Date Date Clinician Fluoxeti Propensi Active Unknown - Uni vers ne ty to See comments 03-25 ity of adverse 00:00: [place] reaction 00 Medical s Branch FLUOXETI DRUG Active Unknown-Cmnt Un lois NE INGREDI - ity of 00:00: [place] 00 Medical Branch DICLOFEN DRUG Active HYPERTENSION Un lois AC INGREDI 11-20 ity of [...] 00 Medical Branch Fluoxeti Propensi Active Hives 2014- Univer s ne Hcl ty to 03-19 ity of adverse 00:00: [place] reaction 00 Medical s Branch Social History Social Habit Start Date Stop Date Quantity Comments Source History of tobacco Cigar Smoker Univ ersity of use [facility] Exposure to 2021-11-13 2021-11-23 Not sure University of SARS-CoV-2 (event) 00:00:00 15:13:00 [facility] Alcohol intake 2021-11-23 2021-11-23 0 /d University of 00:00:00 00:00:00 [facility] Cigarettes smoked 2021-03-14 2021-03-14 Univers ity of current (pack per 00:00:00 00:00:00 ) - Reported Branch Cigarette 2021-03-14 2021-03-14 University of pack-years 00:00:00 00:00:00 [facility] Tobacco use and 2021-03-14 2021-03-14 Never used Universit y of exposure 00:00:00 00:00:00 [facility] Sex [birth year] At [birth year] Universit y of 00:00:00 00:00:00 [facility] Smoking Status Start Date Stop Date Source Current every day smoker 2021-03-14 00:00:00 Uni versity of [facility] Medications Ordered Filled Start Stop Current Ordering Indication Dosage Frequency Signature Comments Components Source Medication Medication Date Date Medication? Clinician (SIG) Name Name aspirin Yes 324mg 324 mg, Univer s chewable 11-24 Oral, ity of tablet 324 14:00: DAILY, [place] mg 00 First dose Medical on Sun Branch 11/24/21 at 0900, Until Discontinu ed, Routine metoclopram No 10mg 10 mg, Uni vers iker HCl 11-23 Slow IV ity of (REGLAN) 22:30: 21:24 Push, [place] injection 00 :00 ONCE, 1 Medical 10 mg dose, On Branch 11/23/21 at 1730, MICHAEL acetaminoph No 1000mg 1,000 mg, Univers en 11-23 Oral, ity of (TYLENOL) 22:15: 21:09 ONCE, 1 [place] tablet 00 :00 dose, On Medical 1,000 mg 11/23/21 Branc h at 1715, MICHAEL ondansetron 2021- No 4mg 4 mg, Slow Univers (ZOFRAN 11-23 IV Push, ity of (PF)) 21:45: 20:30 ONCE, 1 [place] injection 4 00 :00 dose, On Medi kwame mg 11/23/21 Branch at 1645, MICHAEL NaCl 0.9% 2021- No 1000mL at 999 Uni vers (NS) bolus 11-23 mL/hr, ity of infusion 21:30: 21:56 1,000 mL, [place] as 1,000 mL 00 :00 IV Medical Infusion, Branch ONCE, 1 dose, On 11/23/21 at 1630, MICHAEL LORazepam 2021- No 4mg 4 mg, Slow U nivers (ATIVAN) 11-23 IV Push, ity of injection 4 21:30: 20:23 ONCE, 1 [place] mg 00 :00 dose, On Medical 11/23/21 Branch at 1630, STAT levETIRAcet 2021- No 1500mg 1,500 mg, Univers am (KEPPRA) 11-23 05-07 IV ity of in NACL 21:30: 20:47 Piggyback, [place] as (ISO-OS) 00 :00 ONCE, 1 Medical 1,500 dose, On Branch mg/100 mL 11/23/21 RTU at 1630, Administer over 15 Minutes, 100 mL levoFLOXaci 2020- 202- No 500mg 500 mg, U nivers n 03-17 Oral, ity of (LEVAQUIN) 04:00: 04:22 ONCE, 1 [place] tablet 500 00 :00 dose, Sat Medi kwame mg 03/16/21 at Branch 2315, MICHAEL
Re ason for Anti-Infec tive: Documented Infection< br>Documen sherice Infection Site: Respirator y
Durat ion of Therapy: 7 days levoFLOXaci 2020-0 2020- No 500mg 500 mg, U nivers n 03-17 Oral, ity of (LEVAQUIN) 04:00: 04:22 ONCE, 1 [place] tablet 500 00 :00 dose, Sat Medi kwame mg 03/16/21 at Branch 2315, MICHAEL
Re ason for Anti-Infec tive: Documented Infection< br>Documen sherice Infection Site: Respirator y
Durat ion of Therapy: 7 days morpHINE 2020-0 2020- No 4mg 4 mg, Slow Un lois injection 4 03-17 IV Push, ity of mg 01:58: 02:13 ONCE, 1 [place] 00 :00 dose, Sat Medical 03/16/21 at Branch 2100, STAT ondansetron 2020-0 2020- No 4mg 4 mg, Slow Univers (ZOFRAN 03-17 IV Push, ity of (PF)) 01:58: 02:12 ONCE, 1 [place] injection 4 00 :00 dose, Sat Med ical mg 03/16/21 at Branch 2100, MICHAEL morpHINE 2020-0 2020- No 4mg 4 mg, Slow Un [...] IV ity of succ 01:57: 02:11 Push, [place] (SOLU-MEDRO 00 :00 ONCE, 1 Medic al L) dose, Sat Branch injection 03/16/21 at 125 mg 2100, STAT ipratropium 2020- No 3mL 3 mL, Univ ers -albuteroL 03-17 Inhalation it y of (DUONEB) 01:57: 02:15 , ONCE, 1 [place] 0.5 mg-3 00 :00 dose, Sat Medica l mg(2.5 mg 03/16/21 at Bran ch base)/3 mL 2100, MICHAEL nebulizer solution 3 mL ipratropium 2020- No 3mL 3 mL, Univ ers -albuteroL 03-17 Inhalation it y of (DUONEB) 01:57: 02:15 , ONCE, 1 [place] 0.5 mg-3 00 :00 dose, Sat Medica l mg(2.5 mg 03/16/21 at Bran ch base)/3 mL 2100, MICHAEL nebulizer solution 3 mL NaCl 0.9% No 1000mL at 999 Uni vers (NS) IV 03-17 mL/hr, ity of infusion 01:57: 03:07 Intravenou [place] 1,000 mL 00 :00 s, ONCE, 1 Medic al dose, Sat Branch 03/16/21 at 2100, MICHAEL methylpredn No 125mg 125 mg, U nivers isolone sod 03-17 Slow IV ity of succ 01:57: 02:11 Push, [place] (SOLU-MEDRO 00 :00 ONCE, 1 Medic al L) dose, Sat Branch injection 03/16/21 at 125 mg 2100, STAT ipratropium No 3mL 3 mL, Univ ers -albuteroL 03-17 Inhalation it y of (DUONEB) 01:57: 02:15 , ONCE, 1 [place] 0.5 mg-3 00 :00 dose, Sat Medica l mg(2.5 mg 03/16/21 at Bran base)/3 mL 2100, MICHAEL nebulizer solution 3 mL levoFLOXaci 2020- No [id number] 500mg Take 1 Univers n 500 mg 03-17 tablet by ity o f tablet 00:00: 04:59 mouth [place] 00 :00 daily for Medical 6 days. Branch levoFLOXaci 2020- No [id number] 500mg Take 1 Univers n 500 mg 03-17 tablet by ity o f tablet 00:00: 04:59 mouth [place] 00 :00 daily for Medical 6 days. Branch levoFLOXaci 2020- No [id number] 500mg Take 1 Univers n 500 mg 03-17 tablet by ity o f tablet 00:00: 04:59 mouth [place] 00 :00 daily for Medical 6 days. Branch levoFLOXaci 2020- No [id number] 500mg Take 1 Univers n 500 mg 03-17 tablet by ity o f tablet 00:00: 04:59 mouth [place] 00 :00 daily for Medical 6 days. Branch predniSONE 2020- No [id number] 30mg Take 3 Univers 10 mg 03-17 tablets by ity of tablet 00:00: 04:59 mouth [place] 00 :00 daily for Medical 4 days. [place] predniSONE 2020- No [id number] 30mg Take 3 Univers 10 mg 8-17 04-03 tablets by ity of tablet 00:00: 04:59 mouth [place] 00 :00 daily for Medical 4 days. Branch predniSONE 2020-2020- No [id number] 30mg Take 3 Univers 10 mg 8-17 04-03 tablets by ity of tablet 00:00: 04:59 mouth [place] 00 :00 daily for Medical 4 days. Branch predniSONE 2020- No [id number] 30mg Take 3 Univers 10 mg 8-17 04- tablets by ity of tablet 00:00: 04:59 mouth [place] 00 :00 daily for Medical 4 days. [place] albuterol 2020- No [id number] 4{puff} 4 Puff, Univers (VENTOLIN) 03-15- Inhalation it y of inhaler 4 01:45: 00:44 , ONCE, 1 [place] Puff 00 :00 dose, Arpita Medical 03/14/21 at [place] 2044, Routine dexamethaso 2020- No [id number] 10mg 10 mg, Univers ne 03-15- Intramuscu ity of (DECADRON) 01:45: 00:45 lar, ONCE, [place] injection 00 :00 1 dose, Medical 10 mg Arpita [place] 03/14/21 at 5, Routine albuterol Yes [id number] 2.5mg Inhale 3 Univers 2.5 mg /3 8-27 mL every 4 ity of mL (0.083 00:00: (four) [place] %) 00 hours as Medical nebulizer needed for Bran ch solution Wheezing or Shortness of Breath. albuterol Yes [id number] 2.5mg Inhale 3 Univers 2.5 mg /3 8-27 mL every 4 ity of mL (0.083 00:00: (four) [place] %) 00 hours as Medical nebulizer needed for Bran ch solution Wheezing or Shortness of Breath. albuterol Yes [id number] 2.5mg Inhale 3 Univers 2.5 mg /3 8-27 mL every 4 ity of mL (0.083 00:00: (four) [place] %) 00 hours as Medical nebulizer needed for Bran ch solution Wheezing or Shortness of Breath. albuterol 2020-0 Yes [id number] 2.5mg Inhale 3 Univers 2.5 mg /3 8-27 mL every 4 ity of mL (0.083 00:00: (four) [place] %) 00 hours as Medical nebulizer needed for Bran ch solution Wheezing or Shortness of Breath. albuterol 2020-0 Yes [id number] 2.5mg Inhale 3 Univers 2.5 mg /3 8-27 mL every 4 ity of mL (0.083 00:00: (four) [place] %) 00 hours as Medical nebulizer needed for Bran ch solution Wheezing or Shortness of Breath. albuterol 2020-0 Yes [id number] 2.5mg Inhale 3 Univers 2.5 mg /3 8-27 mL every 4 ity of mL (0.083 00:00: (four) [place] %) 00 hours as Medical nebulizer needed for Bran ch solution Wheezing or Shortness of Breath. albuterol 2020-0 Yes [id number] 2.5mg Inhale 3 Univers 2.5 mg /3 8-27 mL every 4 ity of mL (0.083 00:00: (four) [place] %) 00 hours as Medical nebulizer needed for Bran ch solution Wheezing or Shortness of Breath. albuterol 2020-0 Yes [id number] 2.5mg Inhale 3 Univers 2.5 mg /3 8-27 mL every 4 ity of mL (0.083 00:00: (four) [place] %) 00 hours as Medical nebulizer needed for Bran ch solution Wheezing or Shortness of Breath. albuterol 2020-0 Yes [id number] 2.5mg Inhale 3 Univers 2.5 mg /3 8-27 mL every 4 ity of mL (0.083 00:00: (four) [place] %) 00 hours as Medical nebulizer needed for Bran ch solution Wheezing or Shortness of Breath. levETIRAcet 2020- No 1000mg 1,000 mg, Univers am (KEPPRA) 8 08-03 IV ity of in NACL 20:15: 19:30 Infusion, [place] (ISO-OS) 00 :00 ONCE, 1 Medical 1,000 dose, Tue Branch mg/100 mL 02/19/21 at RTU 1515, Administer over 15 Minutes, 100 mL levetiracet Yes Take by Un lois am (KEPPRA 8-03 mouth. ity of ORAL) 19:45: [address] levetiracet Yes Take by Un lois am (KEPPRA 8-03 mouth. ity of ORAL) 19:45: [address] levetiracet Yes Take by Un lois am (KEPPRA 8-03 mouth. ity of ORAL) 19:45: [address] levetiracet Yes Take by Un lois am (KEPPRA 8-03 mouth. ity of ORAL) 19:45: [address] levetiracet Yes Take by Un lois am (KEPPRA 8-03 mouth. ity of ORAL) 19:45: [address] levetiracet Yes Take by Un lois am (KEPPRA 8-03 mouth. ity of ORAL) 19:45: [address] LISINOPRIL- 2020- No Take by U nivers HYDROCHLORO 02-19 mouth. ity o f THIAZIDE 19:41: 00:00 [place] ORAL 15 :00 [facility] dicyclomine 2020- No 20mg 20 mg, Uni [...] Tue Medica l NaCl 0.9% 02/19/21 at Branc h (NS) 50 mL 1415, 50 piggyback [...] ity of (PF)) 17:00: 15:59 ONCE, 1 [place] injection 4 00 :00 dose, Tue Med ical mg 02/19/21 at Branch 1200, MICHAEL iopamidol 2020- No [id number] 100mL 100 mL, Univers (ISOVUE 02-19 Intravenou ity o f 370-500 mL) 16:35: 16:45 s, ONCE, 1 [place] injection 00 :00 dose, Tue Medic al 100 mL 02/19/21 at Branch 1145, Routine levetiracet Yes Take by Un lois am (KEPPRA 8-03 mouth. ity of ORAL) 14:45: [address] levetiracet 0 Yes Take by Un lois am (KEPPRA 8-03 mouth. ity of ORAL) 14:45: [address] levetiracet 0 Yes Take by Un lois am (KEPPRA 8-03 mouth. ity of ORAL) 14:45: [address] levetiracet 0 Yes Take by Un lois am (KEPPRA 8-03 mouth. ity of ORAL) 14:45: [address] proMETHazin Yes [id number] 25mg Take 1 Univers e 25 mg 8-03 tablet by ity of tablet 00:00: mouth [place] 00 every 6 Medical (six) Branch hours as needed for Nausea and Vomiting (N/V). dicyclomine 0 Yes [id number] 20mg Take 1 Univers 20 mg 8-03 tablet by ity of tablet 00:00: mouth 4 00 (four) Medical times Branch daily as needed for Abdominal pain. proMETHazin 2020-0 Yes [id number] 25mg Take 1 Univers e 25 mg 8-03 tablet by ity of tablet 00:00: mouth [place] 00 every 6 Medical (six) Branch hours as needed for Nausea and Vomiting (N/V). dicyclomine 2020-0 Yes [id number] 20mg Take 1 Univers 20 mg 8-03 tablet by ity of tablet 00:00: mouth (four) Medical times Branch daily as needed for Abdominal pain. proMETHazin 2020-0 Yes [id number] 25mg Take 1 Univers e 25 mg 8-03 tablet by ity of tablet 00:00: mouth [place] 00 every 6 Medical (six) Branch hours as needed for Nausea and Vomiting (N/V). dicyclomine 2020-0 Yes [id number] 20mg Take 1 Univers 20 mg 8-03 tablet by ity of tablet 00:00: mouth (four) Medical times Branch daily as needed for Abdominal pain. proMETHazin 2020-0 Yes [id number] 25mg Take 1 Univers e 25 mg 8-03 tablet by ity of tablet 00:00: mouth [place] 00 every 6 Medical (six) Branch hours as needed for Nausea and Vomiting (N/V). dicyclomine 2020-0 Yes [id number] 20mg Take 1 Univers 20 mg 8-03 tablet by ity of tablet 00:00: mouth (four) Medical times Branch daily as needed for Abdominal pain. proMETHazin 2020-0 Yes [id number] 25mg Take 1 Univers e 25 mg 8-03 tablet by ity of tablet 00:00: mouth [place] 00 every 6 Medical (six) Branch hours as needed for Nausea and Vomiting (N/V). dicyclomine 2020-0 Yes [id number] 20mg Take 1 Univers 20 mg 8-03 tablet by ity of tablet 00:00: mouth 4 00 (four) Medical times Branch daily as needed for Abdominal pain. proMETHazin 2020-0 Yes [id number] 25mg Take 1 Univers e 25 mg 8-03 tablet by ity of tablet 00:00: mouth [place] 00 every 6 Medical (six) Branch hours as needed for Nausea and Vomiting (N/V). dicyclomine 2021-0 Yes [id number] 20mg Take 1 Univers 20 mg 8-03 tablet by ity of tablet 00:00: mouth 4 00 (four) Medical times Branch daily as needed for Abdominal pain. proMETHazin 2020-0 Yes [id number] 25mg Take 1 Univers e 25 mg 8-03 tablet by ity of tablet 00:00: mouth [place] 00 every 6 Medical (six) Branch hours as needed for Nausea and Vomiting (N/V). dicyclomine 2020-0 Yes [id number] 20mg Take 1 Univers 20 mg 8-03 tablet by ity of tablet 00:00: mouth 00 (four) Medical times Branch daily as needed for Abdominal pain. proMETHazin 2020-0 Yes [id number] 25mg Take 1 Univers e 25 mg 8-03 tablet by ity of tablet 00:00: mouth [place] 00 every 6 Medical (six) Branch hours as needed for Nausea and Vomiting (N/V). dicyclomine 2020-0 Yes [id number] 20mg Take 1 Univers 20 mg 8-03 tablet by ity of tablet 00:00: mouth 00 (four) Medical times Branch daily as needed for Abdominal pain. proMETHazin 2020-0 Yes [id number] 25mg Take 1 Univers e 25 mg 8-03 tablet by ity of tablet 00:00: mouth [place] 00 every 6 Medical (six) Branch hours as needed for Nausea and Vomiting (N/V). dicyclomine 2020-0 Yes [id number] 20mg Take 1 Univers 20 mg 8-03 tablet by ity of tablet 00:00: mouth 00 (four) Medical times Branch daily as needed for Abdominal pain. proMETHazin 2020-0 Yes [id number] 25mg Take 1 Univers e 25 mg 8-03 tablet by ity of tablet 00:00: mouth [place] 00 every 6 Medical (six) Branch hours as needed for Nausea and Vomiting (N/V). dicyclomine 2020-0 Yes [id number] 20mg Take 1 Univers 20 mg 8-03 tablet by ity of tablet 00:00: mouth 4 00 (four) Medical times Branch daily as needed for Abdominal pain. ZONISAMIDE Yes TAKE 1 Unive rs 100 mg 4-29 CAPSULE BY ity of capsule 00:00: MOUTH [place] 00 TWICE A Medical DAY Branch ZONISAMIDE 2019-0 2020- No TAKE 1 Univ ers 100 mg -29 02-19 CAPSULE BY ity of capsule 00:00: 00:00 MOUTH [place] 00 :00 TWICE A Medical DAY Branch ondansetron 2018-0 Yes 4mg Take 4 mg U nivers (ZOFRAN) 4 7-24 by mouth ity o f mg tablet 20:05: every 8 [place] (eight) Medical hours as Branch needed. pantoprazol 2018-0 Yes 40mg Take 40 mg Univers e 7-24 by mouth ity of (PROTONIX) 20:05: daily. [place] 40 mg EC Medical tablet Branch ondansetron 2017-0 Yes 4mg Take 4 mg U nivers (ZOFRAN) 4 7-24 by mouth ity o f mg tablet 20:05: every 8 [place] [address] (eight) Medical hours as Branch needed. pantoprazol 2018-0 Yes 40mg Take 40 mg Univers e 7-24 by mouth ity of (PROTONIX) 20:05: daily. [place] 40 mg EC Medical tablet Branch LISINOPRIL- 2017-0 Yes Take by Un lois HYDROCHLORO 7-24 mouth. ity of THIAZIDE 20:05: [place] ORAL Medical Branch ondansetron 2018-0 Yes 4mg Take 4 mg U nivers (ZOFRAN) 4 7-24 by mouth ity o f mg tablet 20:05: every 8 [place] [address] (eight) Medical hours as Branch needed. pantoprazol 2018-0 Yes 40mg Take 40 mg Univers e 7-24 by mouth ity of (PROTONIX) 20:05: daily. [place] 40 mg EC Medical tablet Branch ondansetron 2018-0 Yes 4mg Take 4 mg U nivers (ZOFRAN) 4 7-24 by mouth ity o f mg tablet 20:05: every 8 [place] [address] (eight) Medical hours as Branch needed. pantoprazol 2018-0 Yes 40mg Take 40 mg Univers e 7-24 by mouth ity of (PROTONIX) 20:05: daily. [place] 40 mg EC Medical tablet Branch ondansetron 2017-0 Yes 4mg Take 4 mg U nivers (ZOFRAN) 4 7-24 by mouth ity o f mg tablet 20:05: every 8 [place] 01 (eight) Medical hours as Branch needed. pantoprazol 2018-0 Yes 40mg Take 40 mg Univers e 7-24 by mouth ity of (PROTONIX) 20:05: daily. [place] 40 mg EC 01 Medical tablet Branch ondansetron 2017-0 Yes 4mg Take 4 mg U nivers [...] 30 daily. Medical per tablet Branch omega-3 2018-0 Yes 1g Take 1 g Univer s fatty 7-24 by mouth ity of acids-vitam 19:59: daily. [place] in E (FISH 52 Medical OIL) 1,000 Branch mg capsule omega-3 2017-0 Yes 1g Take 1 g Univer s fatty 7-24 by mouth ity of acids-vitam 19:59: daily. [place] in E (FISH 52 Medical OIL) 1,000 Branch mg capsule omega-3 2018-0 Yes 1g Take 1 g Univer s fatty 7-24 by mouth ity of acids-vitam 19:59: daily. [place] in E (FISH 52 Medical OIL) 1,000 Branch mg capsule omega-3 2017-0 Yes 1g Take 1 g Univer s [...] Medical OIL) 1,000 Branch mg capsule MULTIVITAMI 2018-0 Yes 1{tbl} Take 1 Tab Univers N ORAL 7-24 by mouth ity of 19:58: daily. [place] 14 Medical Branch loratadine 2018-0 Yes Take by Uni vers (CLARITIN 7-24 mouth ity of LIQUI-GEL) 19:58: daily. [place] 10 mg 14 Medical capsule Branch MULTIVITAMI Yes 1{tbl} Take 1 Tab Univers N ORAL 7-24 by mouth ity of 19:58: daily. [place] [address] Medical Branch loratadine Yes Take by Uni vers (CLARITIN 7-24 mouth ity of LIQUI-GEL) 19:58: daily. [place] 10 mg 14 Medical capsule Branch MULTIVITAMI Yes 1{tbl} Take 1 Tab Univers N ORAL 7-24 by mouth ity of 19:58: daily. [place] [address] Medical Branch loratadine Yes Take by Uni vers (CLARITIN 7-24 mouth ity of LIQUI-GEL) 19:58: daily. [place] 10 mg 14 Medical capsule Branch MULTIVITAMI Yes 1{tbl} Take 1 Tab Univers N ORAL 7-24 by mouth ity of 19:58: daily. [address] loratadine Yes Take by Uni vers (CLARITIN 7-24 mouth ity of LIQUI-GEL) 19:58: daily. [place] 10 mg 14 Medical capsule Branch MULTIVITAMI Yes 1{tbl} Take 1 Tab Univers N ORAL 7-24 by mouth ity of 19:58: daily. [address] loratadine Yes Take by Uni vers (CLARITIN 7-24 mouth ity of LIQUI-GEL) 19:58: daily. [place] 10 mg 14 Medical capsule [place] MULTIVITAMI Yes 1{tbl} Take 1 Tab Univers N ORAL 7-24 by mouth ity of 19:58: daily. [place] [address] Medical [place] loratadine Yes Take by Uni vers (CLARITIN 7-24 mouth ity of LIQUI-GEL) 19:58: daily. [place] 10 mg 14 Medical capsule Branch MULTIVITAMI Yes 1{tbl} Take 1 Tab Univers N ORAL 7-24 by mouth ity of 19:58: daily. [address] Branch loratadine Yes Take by Uni vers (CLARITIN 7-24 mouth ity of LIQUI-GEL) 19:58: daily. [place] 10 mg 14 Medical capsule Branch ondansetron Yes 4mg Take 4 mg U nivers (ZOFRAN) 4 7-24 by mouth ity o f mg tablet 15:05: every 8 [place] 01 (eight) Medical hours as Branch needed. pantoprazol 2018-0 Yes 40mg Take 40 mg Univers e 7-24 by mouth ity of (PROTONIX) 15:05: daily. [place] 40 mg EC 01 Medical tablet Branch ondansetron 2018-0 Yes 4mg Take 4 mg U nivers (ZOFRAN) 4 7-24 by mouth ity o f mg tablet 15:05: every 8 [place] 01 (eight) Medical hours as Branch needed. pantoprazol 2018-0 Yes 40mg Take 40 mg Univers e 7-24 by mouth ity of (PROTONIX) 15:05: daily. [place] 40 mg EC 01 Medical tablet Branch ondansetron 2018-0 Yes 4mg Take 4 mg U nivers (ZOFRAN) 4 7-24 by mouth ity o f mg tablet 15:05: every 8 [place] 01 (eight) Medical hours as Branch needed. pantoprazol 2018-0 Yes 40mg Take 40 mg Univers e 7-24 by mouth ity of (PROTONIX) 15:05: daily. [place] 40 mg EC 01 Medical tablet Branch ondansetron 2018-0 Yes 4mg Take 4 mg U nivers (ZOFRAN) 4 7-24 by mouth ity o f mg tablet 15:05: every 8 [place] 01 (eight) Medical hours as Branch needed. pantoprazol [...] Medical OIL) 1,000 Branch mg capsule omega-3 0 Yes 1g Take 1 g Univer s fatty 7-24 by mouth ity of acids-vitam 14:59: daily. [place] in E (FISH 52 Medical OIL) 1,000 Branch mg capsule omega-3 Yes 1g Take 1 g Univer s fatty 7-24 by mouth ity of acids-vitam 14:59: daily. [place] in E (FISH 52 Medical OIL) 1,000 Branch mg capsule omega-3 0 Yes 1g Take 1 g Univer s fatty 7-24 by mouth ity of acids-vitam 14:59: daily. [place] in E (FISH 52 Medical OIL) 1,000 Branch mg capsule MULTIVITAMI Yes 1{tbl} Take 1 Tab Univers N ORAL 7-24 by mouth ity of 14:58: daily. [address] loratadine Yes Take by Uni vers (CLARITIN 7-24 mouth ity of LIQUI-GEL) 14:58: daily. [place] 10 mg 14 Medical capsule Branch MULTIVITAMI Yes 1{tbl} Take 1 Tab Univers N ORAL 7-24 by mouth ity of 14:58: daily. [address] loratadine Yes Take by Uni vers (CLARITIN 7-24 mouth ity of LIQUI-GEL) 14:58: daily. [place] 10 mg 14 Medical capsule Branch MULTIVITAMI Yes 1{tbl} Take 1 Tab Univers N ORAL 7-24 by mouth ity of 14:58: daily. [address] loratadine Yes Take by Uni vers (CLARITIN 7-24 mouth ity of LIQUI-GEL) 14:58: daily. [place] 10 mg 14 Medical capsule Branch MULTIVITAMI Yes 1{tbl} Take 1 Tab Univers N ORAL 7-24 by mouth ity of 14:58: daily. [address] loratadine Yes Take by Uni vers (CLARITIN 7-24 mouth ity of LIQUI-GEL) 14:58: daily. [place] 10 mg 14 Medical capsule Branch proMETHazin Yes 25mg Take 1 Univ ers e 5-04 tablet by ity of (PHENERGAN) 00:00: mouth [place] 25 mg 00 every 6 Medical tablet (six) Branch hours as needed for Nausea and Vomiting (N/V). proMETHazin 1- No 25mg Take 1 Uni vers e 5-04 08-03 tablet by ity of (PHENERGAN) 00:00: 00:00 mouth [place] 25 mg 00 :00 every 6 Medical tablet (six) Branch hours as needed for Nausea and Vomiting (N/V). carvedilol Yes 6.25mg Take 1 Tab Univers (COREG) 3-03 by mouth 2 ity of 6.25 mg 00:00: (two) [place] tablet 00 times Medical daily with Branch meals. amLODIPine Yes 10mg Take 1 Tab U nivers (NORVASC) 3-03 by mouth ity of 10 mg 00:00: daily. [place] tablet 00 [facility] lisinopril Yes 40mg Take 1 Tab U nivers (PRINIVIL,Z 3-03 by mouth ity of ESTRIL) 40 00:00: daily. [place] mg tablet 00 [facility] carvedilol Yes 6.25mg Take 1 Tab Univers (COREG) [...] 10 mg 00:00: daily. [place] tablet 00 [facility] lisinopril 2015-0 Yes 40mg Take 1 Tab U nivers (PRINIVIL,Z 3-03 by mouth ity of ESTRIL) 40 00:00: daily. [place] mg tablet 00 [facility] Immunizations Ordered Filled Immunization Date Status Comments Sour e Immunization Name Name SARS-COV-2 COVID-19 2021-05-24 Completed Unive rsity of PFIZER VACCINE 00:00:[address] [facility] SARS-COV-2 COVID-19 2021-05-24 Completed Unive rsity of PFIZER VACCINE 00:00:[address] [facility] SARS-COV-2 COVID-19 2021-05-03 Completed Unive rsity of PFIZER VACCINE 00:00:[address] [facility] SARS-COV-2 COVID-19 2021-05-03 Completed Unive rsity of PFIZER VACCINE 00:00:[address] [facility] SARS-COV-2 COVID-19 2021-05-03 Completed Unive rsity of PFIZER VACCINE 00:00:[address] [facility] Vital Signs Vital Name Observation Time Observation Value Comments Source Systolic blood 2021-11-23 21:30:00 132 mm[Hg] Univer sity of pressure [facility] Diastolic blood 2021-11-23 21:30:00 76 mm[Hg] Unive rsity of pressure [facility] Heart rate 2021-11-23 21:30:00 95 /min [facility] Respiratory rate 2021-11-23 21:30:00 13 /min [facility] in 2021-11-23 21:30:00 97 /min [facility] Arterial blood by [facility] Pulse oximetry [place] Body temperature 2021-11-23 20:15:00 37.56 Radha Univ ersity of [facility] Systolic blood 2021-03-17 03:00:00 117 mm[Hg] Univer sity of pressure [facility] Diastolic blood 2021-03-17 03:00:00 76 mm[Hg] Unive rsity of pressure [place] [facility] Heart rate 2021-03-17 03:00:00 104 /min [facility] [place] [facility] Respiratory rate 2021-03-17 03:00:00 28 /min [facility] [place] [facility] Oxygen saturation in 2021-03-17 03:00:00 96 /min [facility] of Arterial blood by [place] [facility] Pulse oximetry Branch Body temperature 2021-03-17 00:39:00 37.11 Radha [facility] [place] [facility] Body height 2021-03-17 00:39:00 160 cm [facility] [place] [facility] Body weight 2021-03-17 00:39:00 58.968 kg [facility] [place] [facility] BMI 2021-03-17 00:39:00 23.03 kg/m2 [facility] [place] [facility] Systolic blood 2021-03-15 00:14:00 149 mm[Hg] Univer sity of pressure [place] [facility] Diastolic blood 2021-03-15 00:14:00 78 mm[Hg] Unive rsity of pressure [place] [facility] Heart rate 2021-03-15 00:14:00 100 /min [facility] [place] [facility] Body temperature 2021-03-15 00:14:00 37.33 Radha [facility] [place] [facility] Respiratory rate 2021-03-15 00:14:00 24 /min [facility] [place] [facility] Body height 2021-03-15 00:14:00 160 cm [facility] [place] [facility] Body weight 2021-03-15 00:14:00 58.968 kg [facility] [place] [facility] BMI 2021-03-15 00:14:00 23.03 kg/m2 [facility] [place] [facility] Oxygen saturation in 2021-03-15 00:14:00 98 /min [facility] of Arterial blood by [place] [facility] Pulse oximetry Branch Systolic blood 2021-02-19 18:00:00 131 mm[Hg] Univer sity of pressure [place] [facility] Diastolic blood 2021-02-19 18:00:00 80 mm[Hg] Unive rsity of pressure [place] [facility] Heart rate 2021-02-19 18:00:00 83 /min [facility] [place] [facility] Respiratory rate 2021-02-19 18:00:00 18 /min [facility] Oxygen saturation in 2021-02-19 18:00:00 100 /min [facility] Arterial blood by [facility] Pulse oximetry [place] Body temperature 2021-02-19 15:47:00 37 Radha [facility] Body height 2021-02-19 15:47:00 160 cm [facility] Body weight 2021-02-19 15:47:00 58.968 kg [facility] BMI 2021-02-19 15:47:00 23.03 kg/m2 [facility] Procedures Procedure Date / Time Performing Clinician Source Performed URINE DRUG (IMMUNOASSAY) 2021-11-23 21:21:[address] [facility] SCREEN W/O REFLEX CT HEAD WO CONTRAST 2021-11-23 20:58:00 Williams Allison [facility] POCT TEST 2021-11-23 20:46:00 Williams Allison [facility] URINALYSIS 2021-11-23 20:43:00 Williams Allison [facility] LIPASE 2021-11-23 20:27:00 Williams Allison [facility] TROPONIN I 2021-11-23 20:27:00 Williams Allison [facility] COMP. METABOLIC PANEL 2021-11-23 20:27:00 [id number] CBC WITH DIFF 2021-11-23 20:27:00 Williams Allison [facility] POCT GLUCOSE (AUTOMATED) 2021-11-23 20:15:00 Doctor Unassigned, [facility] [place] [facility] [place] SARS-COV-2 COVID-19 2021-05-24 14:23:12 Doctor Unassigned, [facility] VACCINE,0.3ML,IM (PFIZER) [place] [facility] SARS-COV-2 COVID-19 2021-05-03 14:59:29 Doctor Unassigned, [facility] VACCINE,0.3ML,IM (PFIZER) [place] [facility] EMERGENCY SERVICES 2021-04-16 05:01:00 Doctor Joe, [facility] AGREEMENTS AND [place] [facility] [place] AUTHORIZATIONS URINALYSIS 2021-03-17 03:09:00 Palmer [facility] XR CHEST 1 VW 2021-03-17 01:45:07 Palmer [facility] TROPONIN I 2021-03-17 01:35:00 Palmer [facility] COMP. METABOLIC PANEL 2021-03-17 01:35:00 Palmer [facility] ([id number]) Medical Branch CBC WITH DIFF 2021-03-17 01:35:00 Palmer [facility] N-TERMINAL PRO-BNP 2021-03-17 01:35:00 Palmer [facility] Branch COVID-19 (ID NOW RAPID 2021-03-17 00:58:00 Brian Ray [facility] TESTING) Medical Branch CONSENT/REFUSAL FOR 2021-03-17 00:32:59 Doctor Joe [facility] DIAGNOSIS AND TREATMENT [place] [facility] COVID-19 (ID NOW RAPID 2021-02-19 17:04:00 Anali Patel [facility] TESTING) Medical Branch CT ABDOMEN PELVIS W 2021-02-19 16:41:18 Anali Patel [facility] CONTRAST Medical Branch LIPASE 2021-02-19 15:58:00 Anali Patel [facility] COMP. METABOLIC PANEL 2021-02-19 15:58:00 Anali Patel [facility] ([id number]) Medical Branch CBC WITH DIFF 2021-02-19 15:58:00 Anali Patel [facility] URINALYSIS 2021-02-19 15:58:00 Anali Patel [facility] NOTICE OF PRIVACY 2021-02-19 15:30:46 Doctor Joe, [facility] PRACTICES [place] [facility] CONSENT/REFUSAL FOR 2021-02-19 15:30:30 Doctor Unassigned, [place] DIAGNOSIS AND TREATMENT [place] [facility] Encounters Start End Encounter Admission Attending Care Care Encounter Source Date/Time Date/Time Type Type Clinicians Facility Department ID 2021-05-20 Emergency [facility] [id number] Univers 18:48:04 ity of [facility] 2021-05-20 Emergency [facility] [id number] Univers 12:43:40 ity of [facility] 2021-11-23 2021-11-23 Emergency X STEFANONAYAJENNIFER [facility] ERT [id number] Univers 15:07:00 17:03:00 FOLUSHO ity of [facility] 2021-11-23 2021-11-23 Emergency Sav Rondon [facility] 1.2.840. 114 [id number] Univers 15:07:00 17:03:00 Williams Allison F AXTELL 350.1.13. 10 ity of [place] 4.2.7.2.686 [facility] [phone] [facility] 084 Branch 2021-11-21 2021-11-21 Outpatient R [facility] [id number] Univers 09:40:00 09:40:00 [id number] ity of [facility] 2021-11-21 2021-11-21 Outpatient R [facility] [id number] Univers 09:40:00 09:40:00 ity of [facility] 2021-05-24 2021-05-24 Outpatient R [facility] [id number] Univers 09:30:00 09:30:00 [id number] ity of [facility] 2021-05-24 2021-05-24 Outpatient R SHILPA FREDERICK [facility] [id number] Univers 09:30:00 09:30:00 ity of [facility] 2021-05-24 2021-05-24 Imm/Inj Vaccine, Chung Murdocki [facility] ANJELICA FLETCHER [id number] Univers 08:47:51 08:57:51 Visit Shilpa Frederick 350.1.13.10 ity of PEDIATRIC 4.2.7.2.686 [facility] [id number] [facility] 225 Branch 2021-05-03 2021-05-03 Outpatient R SHILPA FREDERICK [facility] [id number] Univers 09:40:00 09:59:35 ity of [facility] 2021-05-03 2021-05-03 Imm/Inj Vaccine, Chung Pierson [facility] Anjelica fletcher 1.2.840.114 [id number] Univers 09:17:43 09:59:35 Visit Shilpa Frederick 350.1.13.10 ity of Pediatric 4.2.7.2.686 [facility] [id number] [facility] 225 Branch 2021-05-03 2021-05-03 Outpatient R [facility] [id number] Univers 09:40:00 09:40:00 [id number] ity of [facility] 2021-04-16 2021-04-16 Orders Doctor THEODORE 1.2.840.114 [id number] Univers 00:00:00 00:00:00 Only Unassigned, [place] 350.1.13.10 ity of [place] [facility] 4.2.7.2.686 Javier as [phone] [facility] 009 Branch 2021-03-17 2021-03-17 Telephone EWELINA Nava 1.2.014.080 [id number] Univers 00:00:00 00:00:00 Anesuha JC 350.1.13.10 ity of [facility] 4.2.7.2.686 Javier as [phone] [facility] 019 Branch 2021-03-16 2021-03-16 Emergency Palmer [facility] [id number] Univers 20:08:00 23:24:00 Shinta Julio Cesar 350.1.13.10 i [place] [phone] [facility] 084 Branch 2021-03-14 2021-03-14 Urgent Lydia Desouza [facility] 1.2.840.114 [id number] Univers 18:59:34 20:19:13 Care Unknown, Attending Health 350.1.13.10 ity of [place] 4.2.7.2.686 Javier as Prem?Blea [id number] [place] [address] Branch [facility] 2021-03-14 2021-03-14 Outpatient R [facility] [id number] Univers 19:00:00 19:00:00 [id number] [facility] 2021-03-14 2021-03-14 Outpatient R UNKNOWN, [facility] [id number] Univers 19:00:00 19:00:00 ATTENDING [facility] 2021-02-19 2021-02-19 [facility] [id number] Univers 10:49:00 14:48:00 Anali Harrell 350.1.13.10 i [place] [id number] [address] 2019-03-09 2019-03-09 [facility] 1.2.840.114 [id number] 00:00:00 00:00:00 Yehuda Harrell 350.1.13.10 [place] 4.2.7.2.686 Professio [id number] [address] 2019-03-09 2019-03-09 [facility] 1.2.840.114 [id number] Univers 00:00:00 00:00:00 Yehuda Harrell 350.1.13.10 ity [facility] [place] [phone] [address] Results Test Description Test Time Test Comments Results Result Comments Source TROPONIN I 2021-11-23 21:06:40 Test Item Value Reference Range Interpretation Comme nts TROPONIN I (test code = 0.005 ng/mL See_Comment [Au tomated message] The 4645153509) system which ge nerated this result tra [...] biotin. Lab Interpretation Normal (test code = 71344-4) [facility]. METABOLIC PANEL ([id number])2021-11-23 20:55:42 Test Item Value Reference Range Interpretation Comments NA (test code = 137 mmol/L 135-145 8078451447) K (test code = 4.3 mmol/L 3.5-5.0 8964065825) CL (test code = 104 mmol/L 98-108 0152093040) CO2 TOTAL (test code = 22 mmol/L 23-31 L 4260363778) AGAP (test code = 2-16 4843470842) BUN (test code = 15 mg/dL 7-23 0090182530) GLUCOSE (test code = 114 mg/dL 70-110 H 0183174827) CREATININE (test code = 0.68 mg/dL 0.50-1.04 5917757491) TOTAL BILI (test code = 0.5 mg/dL 0.1-1.9 9570213192) CALCIUM (test code = 9.1 mg/dL 8.6-10.6 4972811643) T PROTEIN (test code = 7.3 g/dL 6.3-8.2 1486628935) ALBUMIN (test code = 4.4 g/dL 3.5-5.0 2731221105) ALK PHOS (test code = 243 U/L 34-122 H 5036217824) ALTv (test code = 24 U/L 5-35 1742-6) AST(SGOT) (test code = 30 U/L 13-40 9271559000) eGFR (test code = mL/min/1.73m2 9368235564) LYNDSAY (test code = LYNDSAY) Association of [...] tests). Lab Interpretation Abnormal (test code = 69955-8) [facility]22 Test Item Value Reference Range Interpretation Comments LIPASE (test code = 9620997438) 96 U/L 0-220 Lab Interpretation (test code = Normal 92540-0) [facility] [id number] 20:46:00 Test Item Value Reference Range Interpretation Comments POCT PREG (test code = 1605) negative On board controls acceptable with present C Line (test code = 3574) POCT PREG LOT # (test code = 3575) [id number] POCT PREG TEST DATE (test 04/18/2023 code = 3576) Lab Interpretation (test code = Normal 86156-8) [facility] WITH [id number] 20:40:38 Test Item Value Reference Range Interpretation Comments WBC (test code = See_Comment [Automated 2926-2) message] The sy stem which generated this [...] (test code = 53.7 fL 39.0-49.9 H 09163-2) RDW-CV (test code = 17.2 % 12.0-15.5 H 788-0) PLT (test code = See_Comment H [Automated 777-3) message] The sy stem which generated this result transmitted reference range : 166 - 358 10*3/ ?L. The reference r zoe was not used to interpret this result as normal/abnormal . MPV (test code = 8.5 fL 9.5-12.9 L 37631-1) NRBC/100 WBC (test See_Comment [Automat ed code = 9828329932) message] The system which generated this result transmitted reference range : 0.0 - 10.0 /100 WBCs. The refer ence range was not u sed to interpret th is result as normal/abnormal . NRBC x10^3 (test code <0.01 See_Comment [Auto mated = 7553148852) message] The s ystem which generated this result transmitted reference range : 10*3/?L. The reference range was not used to interpret this result as normal/abnormal . GRAN MAT (NEUT) % 53.7 % (test code = 770-8) IMM GRAN % (test code 0.90 % = 4402443832) LYMPH % (test code = 32.6 % 736-9) MONO % (test code = 10.1 % 5905-5) EOS % (test code = 1.5 % 713-8) BASO % (test code = 1.2 % 706-2) GRAN MAT x10^3(ANC) 4.98 10*3/uL 1.88-7.09 (test code = 8487317987) IMM GRAN x10^3 (test 0.08 10*3/uL 0.00-0.06 H code = 4961818150) LYMPH x10^3 (test code 3.02 10*3/uL 1.32-3.29 = 731-0) MONO x10^3 (test code 0.94 10*3/uL 0.33-0.92 H = 742-7) EOS x10^3 (test code = 0.14 10*3/uL 0.03-0.39 711-2) BASO x10^3 (test code 0.11 10*3/uL 0.01-0.07 H = 704-7) Lab Interpretation Abnormal (test code = 46623-9) [facility]2021-11-23 20:17:33 Test Item Value Reference Range Interpretation Comments POCT GLU (test code = 111 mg/dL 70-110 H Notifi ed Provider [id number]) Lab Interpretation (test Abnormal code = 02885-0) [facility] 03:22:48 Test Item Value Reference Range Interpretation Comments APPEARANCE (test code = Hazy Clear A 1943859704) COLOR (test code = Yellow Yellow 2492830060) PH (test code = 4.8-8.0 0074012900) SP GRAVITY (test code = 1.003-1.030 0053579561) GLU U QUAL (test code = Normal Normal 0645999603) BLOOD (test code = Negative Negative Interfere nce from 5914965948) ascorbic acid m ay cause false neg ative results. KETONES (test code = 5 mg/dL Negative A 0050517396) PROTEIN (test code = Negative Negative 2887-8) UROBILIN (test code = 4.0 mg/dL Normal A 6087350156) BILIRUBIN (test code = Negative Negative 1161417170) NITRITE (test code = Negative Negative 5719903857) LEUK GRUPO (test code = Negative Negative 7295868015) RBC/HPF (test code = See_Comment [Autom ated message] 7403824882) The system whic h generated this result transmitted ref erence range: 0 - 3 HP F. The reference range was not used to int erpret this result as normal/abnormal . WBC/HPF (test code = <1 See_Comment [Autom ated message] 1632730079) The system [employer] generated this result transmitted ref erence range: 0 - 5 HP F. The reference range was not used to int erpret this result as normal/abnormal . BACTERIA (test code = Few Negative A 5103301673) SQ EPITH (test code = HPF 4125693708) Lab Interpretation Abnormal (test code = 22517-9) [facility] 03:22:48 Test Item Value Reference Range Interpretation Comments APPEARANCE (test code = Hazy Clear A 9506015054) COLOR (test code = Yellow Yellow 0572772120) PH (test code = 4.8-8.0 6850336858) SP GRAVITY (test code = 1.003-1.030 8574125204) GLU U QUAL (test code = Normal Normal 8155427187) BLOOD (test code = Negative Negative 2371056521) KETONES (test code = 5 mg/dL Negative A 9720528410) PROTEIN (test code = Negative Negative 2887-8) UROBILIN (test code = 4.0 mg/dL Normal A 2322500746) BILIRUBIN (test code = Negative Negative 2871026922) NITRITE (test code = Negative Negative 2089291574) LEUK GRUPO (test code = Negative Negative 4562434946) RBC/HPF (test code = See_Comment [Autom ated message] 5158109881) The system [employer] generated this result transmit sherice reference range : 0 - 3 HPF. The refe rence range was not u sed to interpret th is result as normal/abnormal . WBC/HPF (test code = <1 See_Comment [Autom ated message] 9691995421) The system [employer] generated this result transmit sherice reference range : 0 - 5 HPF. The refe rence range was not u sed to interpret th is result as normal/abnormal . BACTERIA (test code = Few Negative A 6364403798) SQ EPITH (test code = HPF 2753070924) Lab Interpretation (test Abnormal code = 94985-2) [facility] [id number] 02:45:00 Test Item Value Reference Interpretation Comments Range TROPONIN I (test 0.002 ng/mL See_Comment [Automated code = 0777768375) message] The system which generated this result [...] biotin. Lab Interpretation Normal (test code = 29542-4) [facility] [id number] 02:45:00 Test Item Value Reference Range Interpretation Comments TROPONIN I (test code = 0.002 ng/mL See_Comment [Au tomated 0314071637) message] The sy stem which generated this result transmitted reference range : <=0.034. The reference range was not used to interpret this result as normal/abnormal . LYNDSAY (test code = LYNDSAY) Lab Interpretation Normal (test code = 11926-4) [facility]-TER[facility] [id number] 02:41:57 Test Item Value Reference Range Interpretation Comments NT-proBNP (test code 169 pg/mL See_Comment H [Autom ated = 4459526302) message] The system which generated this result transmitted reference range : <=125. The reference range was not used to interpret this result as normal/abnormal . LYNDSAY (test code = LYNDSAY) Biotin has been reported to cause a negative bias, interpret results relative to patient's use of biotin. Lab Interpretation Abnormal (test code = 44899-3) [facility] [id number] 02:41:57 Test Item Value Reference Range Interpretation Comments NT-proBNP (test code = 169 pg/mL See_Comment H [Aut omated message] 5838147311) The system [employer] generated this result transmit sherice reference range : <=125. The refe rence range was not u sed to interpret th is result as normal/abnormal . LYNDSAY (test code = LYNDSAY) Lab Interpretation (test Abnormal code = 28833-9) [facility]. METABOLIC PANEL (77304)2021-03-17 02:09:13 Test Item Value Reference Range Interpretation Comments NA (test code = 137 mmol/L 135-145 5817465882) K (test code = 4.2 mmol/L 3.5-5.0 1272865898) CL (test code = 102 mmol/L 98-108 9258794041) CO2 TOTAL (test code = 25 mmol/L 23-31 3903585130) AGAP (test code = 2-16 2704356734) BUN (test code = 18 mg/dL 7-23 1688670911) GLUCOSE (test code = 144 mg/dL 70-110 H 6282194704) CREATININE (test code = 0.77 mg/dL 0.50-1.04 5539929545) TOTAL BILI (test code = 0.4 mg/dL 0.1-1.4 3263995147) CALCIUM (test code = 8.9 mg/dL 8.6-10.6 1477206814) T PROTEIN (test code = 6.8 g/dL 6.3-8.2 4351277624) ALBUMIN (test code = 3.9 g/dL 3.5-5.0 5918452927) ALK PHOS (test code = 84 U/L 34-122 3376927019) ALTv (test code = 13 U/L 5-35 1742-6) AST(SGOT) (test code = 17 U/L 13-40 8768833399) eGFR (test code = mL/min/1.73m2 0469118390) LYNDSAY (test code = LYNDSAY) Association of [...] tests). Lab Interpretation Abnormal (test code = 88729-4) [facility] (31012)2021-03-17 02:09:13 Test Item Value Reference Range Interpretation Comments NA (test code = 0713307851) 137 mmol/L 135-145 K (test code = 2046935930) 4.2 mmol/L 3.5-5.0 CL (test code = 3448288140) 102 mmol/L 98-108 CO2 TOTAL (test code = 9329630738) 25 mmol/L 23-31 AGAP (test code = 2024288114) 2-16 BUN (test code = 0860203749) 18 mg/dL 7-23 GLUCOSE (test code = 5406976932) 144 mg/dL 70-110 H CREATININE (test code = 0.77 mg/dL 0.50-1.04 8127006536) TOTAL BILI (test code = 0.4 mg/dL 0.1-1.3 0410009307) CALCIUM (test code = 4353843910) 8.9 mg/dL 8.6-10.6 T PROTEIN (test code = 1059448440) 6.8 g/dL 6.3-8.2 ALBUMIN (test code = 7028520578) 3.9 g/dL 3.5-5.0 ALK PHOS (test code = 4279515115) 84 U/L 34-122 ALTv (test code = 1742-6) 13 U/L 5-35 AST(SGOT) (test code = 7754088895) 17 U/L 13-40 eGFR (test code = 7399980210) mL/min/1.73m2 LYNDSAY (test code = LYNDSAY) Lab Interpretation (test code = Abnormal 96733-2) [facility] WITH [id number] 01:56:33 Test Item Value Reference Range Interpretation [...] (test code = 55.5 fL 39.0-49.9 H 75397-8) RDW-CV (test code = 18.9 % 12.0-15.5 H 788-0) PLT (test code = See_Comment H [Automated 777-3) message] The sy stem which generated this result transmitted reference range : 166 - 358 10*3/ ?L. The reference r zoe was not used to interpret this result as normal/abnormal . MPV (test code = 8.2 fL 9.5-12.9 L 11307-9) NRBC/100 WBC (test See_Comment [Automat ed code = 4292310614) message] The system which generated this result transmitted reference range : 0.0 - 10.0 /100 WBCs. The refer ence range was not u sed to interpret th is result as normal/abnormal . NRBC x10^3 (test code <0.01 See_Comment [Auto mated = 4533807225) message] The s ystem which generated this result transmitted reference range : 10*3/?L. The reference range was not used to interpret this result as normal/abnormal . GRAN MAT (NEUT) % 61.7 % (test code = 770-8) IMM GRAN % (test code 0.80 % = 2105274546) LYMPH % (test code = 28.5 % 736-9) MONO % (test code = 6.3 % 5905-5) EOS % (test code = 1.8 % 713-8) BASO % (test code = 0.9 % 706-2) GRAN MAT x10^3(ANC) 7.31 10*3/uL 1.88-7.09 H (test code = 0619253782) IMM GRAN x10^3 (test 0.09 10*3/uL 0.00-0.06 H code = 8802434692) LYMPH x10^3 (test code 3.38 10*3/uL 1.32-3.29 H = 731-0) MONO x10^3 (test code 0.75 10*3/uL 0.33-0.92 = 742-7) EOS x10^3 (test code = 0.21 10*3/uL 0.03-0.39 711-2) BASO x10^3 (test code 0.11 10*3/uL 0.01-0.07 H = 704-7) Lab Interpretation Abnormal (test code = 77984-9) [facility] WITH [id number] 01:56:33 Test Item Value Reference Range Interpretation Comments WBC (test code = See_Comment H [Automated 5090-2) message] The sy stem which generated this [...] (test code = 55.5 fL 39.0-49.9 H 79042-2) RDW-CV (test code = 18.9 % 12.0-15.5 H 788-0) PLT (test code = See_Comment H [Automated 777-3) message] The sy stem which generated this result transmitted reference range : 166 - 358 10*3/ ?L. The reference r zoe was not used to interpret this result as normal/abnormal . MPV (test code = 8.2 fL 9.5-12.9 L 93072-9) NRBC/100 WBC (test See_Comment [Automat ed code = 2474116168) message] The system which generated this result transmitted reference range : 0.0 - 10.0 /100 WBCs. The refer ence range was not u sed to interpret th is result as normal/abnormal . NRBC x10^3 (test code <0.01 See_Comment [Auto mated = 2840096552) message] The s ystem which generated this result transmitted reference range : 10*3/?L. The reference range was not used to interpret this result as normal/abnormal . GRAN MAT (NEUT) % 61.7 % (test code = 770-8) IMM GRAN % (test code 0.80 % = 2940200077) LYMPH % (test code = 28.5 % 736-9) MONO % (test code = 6.3 % 5905-5) EOS % (test code = 1.8 % 713-8) BASO % (test code = 0.9 % 706-2) GRAN MAT x10^3(ANC) 7.31 10*3/uL 1.88-7.09 H (test code = 1347518387) IMM GRAN x10^3 (test 0.09 10*3/uL 0.00-0.06 H code = 1393916366) LYMPH x10^3 (test code 3.38 10*3/uL 1.32-3.29 H = 731-0) MONO x10^3 (test code 0.75 10*3/uL 0.33-0.92 = 742-7) EOS x10^3 (test code = 0.21 10*3/uL 0.03-0.39 711-2) BASO x10^3 (test code 0.11 10*3/uL 0.01-0.07 H = 704-7) Lab Interpretation Abnormal (test code = 04892-9) [facility]-19 (ID NOW RAPID TESTING)2021-03-17 01:38:12 Test Item Value Reference Range Interpretation Comments SARS-CoV-2 Rapid ID NOW Not Detected Not Detected (test code = 98694-8) LYNDSAY (test code = LYNDSAY) ID NOW COVID-19 Assay is an isothermal nucleic acid amplification test intended for the qualitative detection of nucleic acid from SARS-CoV-2 viral RNA in nasopharyngeal (USER INTERFACE DEVELOPER) specimens. It is used under Emergency Use [...] indicated. Lab Interpretation Normal (test code = 74513-4) [facility]-19 (ID NOW RAPID TESTING)2021-03-17 01:38:12 Test Item Value Reference Range Interpretation Comments SARS-CoV-2 Rapid ID NOW (test Not Detected Not Detected code = 14884-6) LYNDSAY (test code = LYNDSAY) Lab Interpretation (test code = Normal 45000-5) [facility]2021-02-19 17:42:45 Test Item Value Reference Range Interpretation Comments SARS-CoV-2 Rapid ID NOW Not Detected Not Detected (test code = 23207-0) LYNDSAY (test code = LYNDSAY) ID NOW COVID-19 Assay is an isothermal nucleic acid amplification test intended for the qualitative detection of nucleic acid from SARS-CoV-2 viral RNA in nasopharyngeal (USER INTERFACE DEVELOPER) specimens. It is used under Emergency Use [...] indicated. Lab Interpretation Normal (test code = 05371-3) [facility] [id number] 17:24:55Thickening of the gastric antrum and duodenal bulb could be fromunderdistention, the differential would include sequela of peptic ulcerdisease. No findings of ulcer perforation. Otherwise, no acute intra- abdominal or pelvic abnormality. Stable thickening and nodularity of the left adrenal gland. RL: [id number] Patient name: EUSEBIA TURNERB: 1970 51 years EXAMINATION: CT ABDOMEN PELVIS [...] 12:26 PM CDT Patient name: [facility] 1970 51 years EXAMINATION: CT ABDOMEN PELVIS [...] nodularity of the left adrenal gland.RL: 8722 [facility] [id number] 17:03:40 Test Item Value Reference Range Interpretation Comments APPEARANCE (test code = Hazy Clear A 2008117908) COLOR (test code = Mabel Yellow A 7020294193) PH (test code = 4.8-8.0 9950147568) SP GRAVITY (test code = 1.003-1.030 H 8425895879) GLU U QUAL (test code = Normal Normal 2452490435) BLOOD (test code = Negative Negative 1983109142) KETONES (test code = 5 mg/dL Negative A 8295471764) PROTEIN (test code = 30 mg/dL Negative A 2887-8) UROBILIN (test code = 4.0 mg/dL Normal A 5177476412) BILIRUBIN (test code = 4 mg/dL Negative A 5016022200) NITRITE (test code = Negative Negative 7389685843) LEUK GRUPO (test code = Negative Negative 2555974104) RBC/HPF (test code = See_Comment H [Autom ated message] 3454446422) The system [employer] generated this result transmit sherice reference range : 0 - 3 HPF. The refe rence range was not u sed to interpret th is result as normal/abnormal . WBC/HPF (test code = See_Comment H [Autom ated message] 5879399761) The system [employer] generated this result transmit sherice reference range : 0 - 5 HPF. The refe rence range was not u sed to interpret th is result as normal/abnormal . BACTERIA (test code = Few Negative A 7236045681) MUCOUS (test code = Moderate Negative LPF A 9415785777) SQ EPITH (test code = HPF 1352209757) CA OXALATE (test code = See_Comment H [Au tomated message] 0119997642) The system [employer] generated this result transmit sherice reference range : <=1 HPF. The refere nce range was not u sed to interpret th is result as normal/abnormal . Ictotest (test code = Negative 9342078265) Lab Interpretation (test Abnormal code = 35449-8) [facility] [id number] 16:34:55 Test Item Value Reference Range Interpretation Comments NA (test code = 139 mmol/L 135-145 1685552272) K (test code = 4.3 mmol/L 3.5-5.0 2183455525) CL (test code = 105 mmol/L 98-108 1644112818) CO2 TOTAL (test code 26 mmol/L 23-31 = 9262297228) AGAP (test code = 2-16 1379886482) BUN (test code = 11 mg/dL 7-23 1585760404) GLUCOSE (test code = 95 mg/dL 70-110 9154120208) CREATININE (test code 0.70 mg/dL 0.50-1.04 = 1369083179) TOTAL BILI (test code 0.6 mg/dL 0.1-1.1 = 5416499726) CALCIUM (test code = 8.9 mg/dL 8.6-10.6 6403542719) T PROTEIN (test code 7.7 g/dL 6.3-8.2 = 1213983773) ALBUMIN (test code = 4.1 g/dL 3.5-5.0 0128789408) ALK PHOS (test code = 79 U/L 34-122 0759797866) ALTv (test code = 10 U/L 5-35 1742-6) AST(SGOT) (test code 22 U/L 13-40 = 5127945823) eGFR (test code = mL/min/1.73m2 8061047285) LYNDSAY (test code = LYNDSAY) Association of [...] or urine or abnormalities in imaging tests). [facility] HospitalLip[facility], [id number] 16:34:14 Test Item Value Reference Range Interpretation Comments LIPASE (test code = 3811567088) 45 U/L 0-220 Lab Interpretation (test code = Normal 52659-1) [facility] HospitalCB with [id number] 16:21:12 Test Item Value Reference Range Interpretation Comments WBC (test code = See_Comment [Automated 1102-2) message] The sy stem which generated this result transmitted reference range : 4.30 - 11.10 10*3/?L. The reference range was not used to interpret this result as normal/abnormal . RBC (test code = See_Comment [Automated 415-) message] The sy stem which generated this [...] (test code = 54.4 fL 39.0-49.9 H 56154-2) RDW-CV (test code = 18.3 % 12.0-15.5 H 788-0) PLT (test code = See_Comment H [Automated 777-3) message] The sy stem which generated this result transmitted reference range : 166 - 358 10*3/ ?L. The reference r zoe was not used to interpret this result as normal/abnormal . MPV (test code = 8.5 fL 9.5-12.9 L 68288-3) NRBC/100 WBC (test See_Comment [Automat ed code = 6871655730) message] The system which generated this result transmitted reference range : 0.0 - 10.0 /100 WBCs. The refer ence range was not u sed to interpret th is result as normal/abnormal . NRBC x10^3 (test code <0.01 See_Comment [Auto mated = 2432702185) message] The s ystem which generated this result transmitted reference range : 10*3/?L. The reference range was not used to interpret this result as normal/abnormal . GRAN MAT (NEUT) % 78.3 % (test code = 770-8) IMM GRAN % (test code 0.40 % = 5491824127) LYMPH % (test code = 15.4 % 736-9) MONO % (test code = 4.8 % 5905-5) EOS % (test code = 0.1 % 713-8) BASO % (test code = 1.0 % 706-2) GRAN MAT x10^3(ANC) 7.15 10*3/uL 1.88-7.09 H (test code = 2477929365) IMM GRAN x10^3 (test 0.04 10*3/uL 0.00-0.06 code = 3651565269) LYMPH x10^3 (test code 1.41 10*3/uL 1.32-3.29 = 731-0) MONO x10^3 (test code 0.44 10*3/uL 0.33-0.92 = 742-7) EOS x10^3 (test code = <0.03 0.03-0.39 L 711-2) BASO x10^3 (test code 0.09 10*3/uL 0.01-0.07 H = 704-7) Lab Interpretation Abnormal (test code = 76704-7) [facility]"
[2021-12-08 23:40] LABS: Urine Blood 3+ (Negative); Urine Glucose Negative (Negative); Urine Protein Negative (Negative); Urine pH 6.5 (5.0-7.0)
[2021-12-08 23:53] LABS: Absolute Lymphocytes (CBC) 3.2 K/uL (0.7-4.9); Hematocrit 39.7 % (36.0-45.0); MPV 6.2 fL (7.6-11.3)
[2021-12-08 23:54] LABS: Protime INR 0.95
--- NOTE | 2021-12-09 00:02 | EDPHYS ---
Physician Documentation [facility] Name: Heather Coon Age: 51 yrs Sex: Female : 1970 Arrival Date: 12/08/2021 Time: 23:20 Bed 24 Private MD: ED Physician Derrick Santillan HPI: 12/08 23:51 This 51 yrs old Female presents to ER via EMS with complaints of Chest Pain. fabrice 23:51 The patient or guardian reports chest pain that is located primarily in the substernal fabrice area. Onset: yesterday. The pain radiates to the left arm, Associated signs and symptoms: Pertinent positives: shortness of breath. The chest pain is described as a heaviness, a pressure. Duration: The patient or guardian reports multiple episodes, with no pattern. Modifying factors: The symptoms are alleviated by nothing. the symptoms are aggravated by nothing. Severity of pain: At its worst the pain was moderate in the emergency department the pain is unchanged. The patient has experienced similar episodes in the past, a few times. 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 - Social history:: Smoking status: unknown. - Family history:: not pertinent. ROS: 23:51 Constitutional: Negative for fever, chills, and weight loss, Eyes: Negative for injury, fabrice pain, redness, and discharge, ENT: Negative for injury, pain, and discharge, Neck: Negative for injury, pain, and swelling, Respiratory: Negative for shortness of breath, cough, wheezing, and pleuritic chest pain, Abdomen/GI: Negative for abdominal pain, nausea, vomiting, diarrhea, and constipation, Back: Negative for injury and pain, : Negative for injury, bleeding, discharge, and swelling, MS/Extremity: Negative for injury and deformity, Skin: Negative for injury, rash, and discoloration, Neuro: Negative for headache, weakness, numbness, tingling, and seizure, Psych: Negative for depression, anxiety, suicide ideation, homicidal ideation, and hallucinations, Allergy/Immunology: Negative for hives, rash, and allergies, Endocrine: Negative for neck swelling, polydipsia, polyuria, polyphagia, and marked weight changes, Hematologic/Lymphatic: Negative for swollen nodes, abnormal bleeding, and unusual bruising. 23:51 Cardiovascular: Positive for chest pain, of the chest. Exam: 23:51 Constitutional: This is a well developed, well nourished patient who is awake, alert, fabrice and in no acute distress. Head/Face: Normocephalic, atraumatic. Eyes: Pupils equal round and reactive to light, extra-ocular motions intact. Lids and lashes normal. Conjunctiva and sclera are non-icteric and not injected. Cornea within normal limits. Periorbital areas with no swelling, redness, or edema. ENT: Nares patent. No nasal discharge, no septal abnormalities noted. Tympanic membranes are normal and external auditory canals are clear. Oropharynx with no redness, swelling, or masses, exudates, or evidence of obstruction, uvula midline. Mucous membranes moist. Neck: Trachea midline, no thyromegaly or masses palpated, and no cervical lymphadenopathy. Supple, full range of motion without nuchal rigidity, or vertebral point tenderness. No Meningismus. Chest/axilla: Normal chest wall appearance and motion. Nontender with no deformity. No lesions are appreciated. Respiratory: Lungs have equal breath sounds bilaterally, clear to auscultation and percussion. No rales, rhonchi or wheezes noted. No increased work of breathing, no retractions or nasal flaring. Abdomen/GI: Soft, non-tender, with normal bowel sounds. No distension or tympany. No guarding or rebound. No evidence of tenderness throughout. Back: No spinal tenderness. No costovertebral tenderness. Full range of motion. Skin: Warm, dry with normal turgor. Normal color with no rashes, no lesions, and no evidence of cellulitis. MS/ Extremity: Pulses equal, no cyanosis. Neurovascular intact. Full, normal range of motion. Neuro: Awake and alert, GCS 15, oriented to person, place, time, and situation. Cranial nerves II-XII grossly intact. Motor strength 5/5 in all extremities. Sensory grossly intact. Cerebellar exam normal. Normal gait. Psych: Awake, alert, with orientation to person, place and time. Behavior, mood, and affect are within normal limits. 23:51 Cardiovascular: Rate: normal, Rhythm: regular, Pulses: Pulses are 4+ in bilateral radial, brachial, femoral, popliteal, posterior tibial and and dorsalis pedis arteries.. Heart sounds: normal, Edema: is not appreciated, JVD: is not appreciated. 23:51 ECG was reviewed by the Attending Physician. Vital Signs: 23:22 BP 160 / 105; Pulse 97; Resp 19; Temp 98.5; Pulse Ox 98% on R/A; Weight 74.84 kg; kd3 Height 5 ft. 3 in. (160.02 cm); Pain 8/10; 12/09 04:53 BP 146 / 98; Pulse 72; Resp 16; Pulse Ox 100% on R/A; kd3 12/08 23:22 Body Mass Index 29.23 (74.84 kg, 160.02 cm) kd3 MDM: 12/08 23:28 Patient medically screened. fabrice 23:58 Differential diagnosis: abnormal EKG, acute myocardial infarction, anxiety, coronary fabrice artery disease chest wall pain, costochondritis, hiatal hernia, pancreatitis, peptic ulcer disease, pleurisy, pneumonia, stable angina, unstable angina. HEART Score: History: Moderately Suspicious (1), ECG: Non specific repolarization disturbance / LBTB / PM (1), Age: > 45 and < 65 years (1), Risk Factors: > or = 3 Risk factors for atherosclerotic disease (2), [Active Smoker] [+ Family HX] [Obesity] Troponin: < or = 1 x Normal Limit (0). The patient was given aspirin in the Emergency Department. The patient's deep vein thrombosis risk score was calculated as follows: Total Score: 0. This patient was found to be at low risk for a deep vein thrombosis by using the Well's assessment criteria. The patient's pulmonary embolism risk score was calculated as follows: Total Score: 0-2 points. This patient was found to be at low risk for a pulmonary embolism by using the Well's assessment criteria. SHILPA Risk Score: 1 - Three or more CAD risk factors, TOTAL SCORE = 1. Data reviewed: vital signs, nurses notes, lab test result(s), EKG, radiologic studies. Data interpreted: chocolate dipper: rate is 97 beats/min, rhythm is regular, Pulse oximetry: on room air is 98 %. Test interpretation: by ED physician or midlevel provider: ECG, plain radiologic studies. Counseling: I had a detailed discussion with the patient and/or guardian regarding: the historical points, exam findings, and any diagnostic results supporting the discharge/admit diagnosis, the presence of at least one elevated blood pressure reading (>120/80) during this emergency department visit, lab results, radiology results, the need for further work-up and treatment in the hospital. 12/08 23:23 Order name: Basic Metabolic Panel; Complete Time: 00:32 cp 12/08 23:23 Order name: CBC with Diff; Complete Time: 00:32 cp 12/08 23:23 Order name: LFT's; Complete Time: 00:32 cp 12/08 23:23 Order name: Magnesium; Complete Time: 00:32 cp 12/08 23:23 Order name: NT PRO-BNP; Complete Time: 00:32 cp 12/08 23:23 Order name: PT-INR; Complete Time: 00:00 cp 12/08 23:23 Order name: Troponin HS; Complete Time: 00:32 cp 12/08 23:23 Order name: UDS; Complete Time: 00:32 cp 12/08 23:40 Order name: Urine Dipstick-Ancillary; Complete Time: 23:51 [facility] 12/08 23:40 Order name: Urine --Ancillary (enter results); Complete Time: 00:44 [facility] 12/09 00:07 Order name: COVID-19 SARS RT PCR (Document "Date of Onset" if Symptomatic) [facility] 12/09 05:44 Order name: Troponin High Sensitivity [facility] 12/09 11:29 Order name: Troponin High Sensitivity [facility] 12/10 03:57 Order name: Lipid Profile [facility] 12/08 23:23 Order name: XRAY Chest (1 view) 12/08 23:23 Order name: EKG; Complete Time: 23:23 cp 12/08 23:23 Order name: Cardiac monitoring; Complete Time: 23:37 cp 12/08 23:23 Order name: EKG - Nurse/Tech; Complete Time: 23:37 cp 12/08 23:23 Order name: IV Saline Lock; Complete Time: 23:37 cp 12/09 13:39 Order name: NM EDMS 12/10 03:57 Order name: T4 Free EDMS 12/10 03:57 Order name: Thyroid Stimulating Hormone EDMS 12/08 23:23 Order name: Labs collected and sent; Complete Time: 23:37 cp 12/08 23:23 Order name: O2 Per Protocol; Complete Time: 23:37 cp 12/08 23:23 Order name: O2 Sat Monitoring; Complete Time: 23:37 cp 12/08 23:23 Order name: Urine Dipstick-Ancillary (obtain specimen); Complete Time: 23:37 cp 12/08 23:23 Order name: Urine Test (obtain specimen); Complete Time: 23:38 cp EC:51 Rate is 98 beats/min. Rhythm is regular. QRS [place] is Normal. AK interval is normal. QRS fabrice interval is normal. QT interval is normal. No Q waves. T waves are Normal. No ST changes noted. Clinical impression: NSR w/ Non-specific ST/T Changes and No evidence of ischemia. Interpreted by me. Reviewed by me. Administered Medications: 12/09 00:14 Drug: Lovenox (enoxaparin) 75 mg Route: Sub-Q; Site: abdomen; kd3 04:54 Follow up: Response: No adverse reaction kd3 00:14 Drug: Zofran (Ondansetron) 4 mg Route: IVP; Site: right wrist; kd3 04:54 Follow up: Response: No adverse reaction kd3 00:15 Drug: Aspirin Chewable Tablet 162 mg Route: PO; kd3 04:54 Follow up: Response: No adverse reaction kd3 00:15 Drug: morphine 4 mg Route: IVP; Site: right wrist; kd3 04:54 Follow up: Response: No adverse reaction kd3 02:51 CANCELLED (Physician Discretion): hydrALAZINE 10 mg IVP once sb3 03:06 Drug: morphine 4 mg Route: IVP; Site: right wrist; kd3 04:55 Follow up: Response: No adverse reaction kd3 03:06 Drug: Zofran (Ondansetron) 4 mg Route: IVP; Site: right wrist; kd3 04:55 Follow up: Response: No adverse reaction kd3 04:43 Drug: Albuterol - atroVENT (ipratropium) (3:1) (2.5 mg - 0.5 mg) 3 ml Route: Nebulizer; kd3 04:55 Follow up: Response: No adverse reaction kd3 Disposition Summary: 12/09/21 00:01 Hospitalization Ordered Hospitalization Status: Observation fabrice Provider: John Salinas cha Condition: Stable fabrice Problem: new fabrice Symptoms: have improved fabrice Bed/Room Type: Standard fabrice Location: Telemetry/MedSurg (observation)(12/10/21 10:17) bd Room Assignment: 206(12/10/21 10:17) bd Diagnosis - Chest pain, unspecified fabrice - Essential (primary) hypertension fabrice - Tobacco abuse counseling fabrice - Tobacco use fabrice - Cocaine abuse fabrice Forms: - Medication Reconciliation Form fabrice - SBAR form fabrice Signatures: Dispatcher [employer] EDCatherine Gillette Martha, RN RN Derrick Aguilar MD MD cha Page, Corey, PA PA cp Doucette, Kyli, RN RN kd3 Mariola Mahmood PA PA sb3 Corrections: (The following items were deleted from the chart) 00:13 00:01 Telemetry/MedSurg (observation) fabrice mw 00:13 00:01 fabrice mw 02:51 02:51 hydrALAZINE 10 mg IVP once ordered. sb3 sb3 12/10 10:12/09 00:13 [facility] ER HOLD mw bd 12/10 10:12/09 00:13 ERHOLD- mw bd
--- NOTE | 2021-12-09 00:02 | ER ---
Nurse's Notes [facility] Name: Heather Coon Age: 51 yrs Sex: Female : 1970 Arrival Date: 12/08/2021 Time: 23:20 Bed 24 Private MD: Diagnosis: Chest pain, unspecified;Essential (primary) hypertension;Tobacco abuse counseling;Tobacco use;Cocaine abuse Presentation: 12/08 23:22 Chief complaint: EMS states: pt was having chest pains since about 10 am. pt stated it kd3 wasn't that bad this morning but since has gotten worse. now radiating to the shoulder and jaw. past history of previous MO and seizures. Coronavirus screen: Vaccine status: Patient reports receiving the 2nd dose of the covid vaccine. Ebola Screen: No symptoms or risks identified at this time. Initial Sepsis Screen: Does the patient meet any 2 criteria? No. Patient's initial sepsis screen is negative. Does the patient have a suspected source of infection? No. Patient's initial sepsis screen is negative. Risk Assessment: Do you want to hurt yourself or someone else? Patient reports no desire to harm self or others. Onset of symptoms was December 08, 2021. 23:22 Method Of Arrival: EMS: [facility] kd3 23:22 Acuity: ANDER 3 kd3 Triage Assessment: 23:28 General: Appears uncomfortable, Behavior is calm, cooperative. Pain: Complains of pain kd3 in chest. Neuro: Level of Consciousness is awake, alert, obeys commands, Oriented to person, place, time, situation. Cardiovascular: Patient's skin is warm and dry. 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 - Social history:: Smoking status: unknown. - Family history:: not pertinent. Screenin:29 Abuse screen: Denies threats or abuse. Denies injuries from another. Nutritional kd3 screening: No deficits noted. Tuberculosis screening: No symptoms or risk factors identified. Fall Risk Gait- Weak (10 pts.). Assessment: 23:30 Pain: Pain radiates to shoulder Pain began gradually. kd3 12/09 04:55 General: Appears in no apparent distress. Behavior is calm, cooperative. Neuro: Level kd3 of Consciousness is awake, alert, obeys commands, Oriented to person, place, time, situation. Cardiovascular: Patient's skin is warm and dry. Respiratory: Airway is patent Trachea midline Respiratory effort is even, unlabored, Respiratory pattern is regular. GI: No signs and/or symptoms were reported involving the gastrointestinal system. : No signs and/or symptoms were reported regarding the genitourinary system. Vital Signs: 12/08 23:22 BP 160 / 105; Pulse 97; Resp 19; Temp 98.5; Pulse Ox 98% on R/A; Weight 74.84 kg; kd3 Height 5 ft. 3 in. (160.02 cm); Pain 8/10; 12/09 04:53 BP 146 / 98; Pulse 72; Resp 16; Pulse Ox 100% on R/A; kd3 12/08 23:22 Body Mass Index 29.23 (74.84 kg, 160.02 cm) kd3 ED Course: 12/08 23:20 Patient arrived in ED. lp1 23:22 Blanca Ratliff, BETH is Primary Nurse. kd3 23:27 Derrick Santillan MD is Attending Physician. [facility] 23:28 Triage completed. kd3 23:29 Patient has correct armband on for positive identification. Client placed on continuous kd3 cardiac and pulse oximetry monitoring. NIBP monitoring applied. drywall sander on. Pulse ox on. NIBP on. 23:30 Arm band placed on left wrist. kd3 23:30 No provider procedures requiring assistance completed. Inserted saline lock: 20 gauge kd3 in right wrist, using aseptic technique. Blood collected. Patient maintains SpO2 saturation greater than 95% on room air. 23:38 Inserted saline lock:. kd3 23:43 Urine --Ancillary (enter results) Sent. zm 23:43 UDS Sent. zm 12/09 00:00 Baidoo, John is Hospitalizing Provider. [facility] 00:33 XRAY Chest (1 view) In Process Unspecified. EDMI 12/10 07:46 Inserted saline lock:. boggs 10:24 Inserted saline lock:. boggs 10:36 Patient admitted, IV remains in place. boggs Administered Medications: 12/09 00:14 Drug: Lovenox (enoxaparin) 75 mg Route: Sub-Q; Site: abdomen; kd3 04:54 Follow up: Response: No adverse reaction kd3 00:14 Drug: Zofran (Ondansetron) 4 mg Route: IVP; Site: right wrist; kd3 04:54 Follow up: Response: No adverse reaction kd3 00:15 Drug: Aspirin Chewable Tablet 162 mg Route: PO; kd3 04:54 Follow up: Response: No adverse reaction kd3 00:15 Drug: morphine 4 mg Route: IVP; Site: right wrist; kd3 04:54 Follow up: Response: No adverse reaction kd3 02:51 CANCELLED (Physician Discretion): hydrALAZINE 10 mg IVP once sb3 03:06 Drug: morphine 4 mg Route: IVP; Site: right wrist; kd3 04:55 Follow up: Response: No adverse reaction kd3 03:06 Drug: Zofran (Ondansetron) 4 mg Route: IVP; Site: right wrist; kd3 04:55 Follow up: Response: No adverse reaction kd3 04:43 Drug: Albuterol - atroVENT (ipratropium) (3:1) (2.5 mg - 0.5 mg) 3 ml Route: Nebulizer; kd3 04:55 Follow up: Response: No adverse reaction kd3 Medication: 12/08 23:30 VIS not applicable for this client. kd3 Outcome: 12/09 00:01 Decision to Hospitalize by Provider. 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 boggs Condition: good Instructed on the need for admit. 10:36 Patient left the ED. boggs Signatures: Dispatcher [employer] EDMI Derrick Santillan MD MD cha Pena, Laura RN RN ana [email or web address] Blanca Ratliff RN RN kd3 Sabrina Butterfield RN RN ha Martinez, Zaina zm Brown, Sophia PA sb3 Corrections: (The following items were deleted from the chart) 12/08 23:32 23:30 LMP N/A - Post-menopause kd3 kd3
[2021-12-09 00:08] LABS: ALT/SGPT 25 U/L (12-78); AST/SGOT 21 U/L (15-37); Albumin 3.6 g/dL (3.4-5.0); Alkaline Phosphatase 167 U/L (45-117); BUN Blood Urea Nitrogen 11 mg/dL (7-18); Bicarbonate 24 mmol/L (21-32); Bilirubin Total 0.2 mg/dL (0.2-1.0); Glomerular Filtration Rate 95 ml/min (=/>90); Glucose Level 89 mg/dL (74-106); Magnesium 2.2 mg/dL (1.8-2.4); NT PRO-BNP 605 pg/mL (<125); Potassium 3.6 mmol/L (3.5-5.1); Protein, Total 7.4 g/dL (6.4-8.2); Sodium Level 137 mmol/L (136-145); Troponin High Sensitivity 16.2 pg/mL (<58.9)
[2021-12-09 00:10] LABS: Bilirubin Direct < 0.1 mg/dL (0-0.2)
[2021-12-09] MEDS ORDERED: MORPHINE 4 MG/ML SYR ONE ×2 (00:10→03:10)
[2021-12-09] MEDS ORDERED: ASPIRIN 81 MG CHEWABLE TABLET ONE (00:10)
[2021-12-09] MEDS ORDERED: ONDANSETRON 4 MG/2 ML VIAL ONE ×4 (00:10→15:37)
[2021-12-09 00:11] LABS: Barbiturates NEGATIVE (NEGATIVE); Benzodiazepines NEGATIVE (NEGATIVE); Cocaine POSITIVE (NEGATIVE); METHAMPHETAM NEGATIVE (NEGATIVE); Methadone NEGATIVE (NEGATIVE); Opiates NEGATIVE (NEGATIVE); Phencyclidine NEGATIVE (NEGATIVE); THC Cannibis NEGATIVE (NEGATIVE)
[2021-12-09] MEDS ORDERED: ENOXAPARIN 80 MG/0.8 ML SQ ONE (00:11)
--- NOTE | 2021-12-09 00:46 | P.HP ---
Certification for Inpatient Patient admitted to: Observation With expected LOS: <2 Midnights Patient will require the following post-hospital care: None Practitioner: I am a practitioner with admitting privileges, knowledge of patient current condition, hospital course, and medical plan of care. Services: Services provided to patient in accordance with Admission requirements found in Title 42 Section 412.3 of the Code of Federal Regulations Patient History Date of Service: 12/09/21 Reason for admission: Chest Pain History of Present Illness: Patient is a 51-year-old female PMH of CAD, AR, HTN, and seizure disorder who presented to the ED with complaints of substernal chest pain radiating to her left arm, shoulder, and jaw beginning approximately 12 hours ago. She describes the pain as a heaviness/pressure. Patient was admitted here about 2 months for chest pain with negative cardiac work-up. Labs significant for BNP of 605 and tox screen positive for cocaine. She reports using cocaine 4 days ago. EKG without ST changes and troponin WNL. She was given Lovenox and aspirin in ED. She has been a little hypertensive at 160/105. Upon my assessment, patient states that her pain is improved, but she is still experiencing some nausea and mild chest pain. ED provider wishes to admit patient for observation Allergies fluoxetine HCl [From Prozac] Allergy (Severe, Verified 07/05/20 08:59) Anaphylaxis Green tea Allergy (Unknown, Uncoded 06/08/20 05:35) seizures Home medications list reviewed: Yes Home Medications: Albuterol Inhaler [Ventolin Inhaler*] 2 puff IH BID PRN 01/22/20 Fluoxetine HCl 20 mg PO DAILY 10/22/21 clonazePAM [Klonopin] 0.5 mg PO TID #60 tablet 10/23/21 levETIRAcetam [Keppra*] 1,000 mg PO BID #60 tab 10/23/21 - Past Medical/Surgical History Diabetic: No -: COPD -: Hypertension -: migraines -: Depression with anxiety -: Pancreatitis -: Coronary artery disease-prior myocardial infarction -: Diverticulitis -: Seizure disorder -: Herniated back disc -: Diverticulitis -: 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 -: cholecystectomy -: 5 hand surgeries -: tonsilectomy Psychosocial/ Personal History: Lives at home with her boyfriend - Family History Mother -: Heart disease, Hypertension, GI disease, Diabetes, Liver disease, Kidney disease - Social History Smoking Status: Current every day smoker Alcohol use: Yes CD- Drugs: Yes Caffeine use: Yes Place of Residence: Home Review of Systems Respiratory: Shortness of Breath Cardiovascular: Chest Pain, As per HPI Physical Examination - Physical Exam General: Alert, In no apparent distress HEENT: Atraumatic, PERRLA, EOMI, Sclerae nonicteric Neck: Supple, 2+ carotid pulse no bruit, No LAD, Without JVD or thyroid abnormality Respiratory: Clear to auscultation bilaterally, Normal air movement Cardiovascular: Regular rate/rhythm, Normal S1 S2 Gastrointestinal: Normal bowel sounds, No tenderness Musculoskeletal: No tenderness Integumentary: No rashes Neurological: Normal speech, Normal strength at 5/5 x4 extr, Normal tone, Normal affect - Studies Laboratory Data (last 24 hrs) 12/08/21 23:31: PT 10.4, INR 0.95 12/08/21 23:31: WBC 10.0, Hgb 12.8, Hct 39.7, Plt Count 494 H 12/08/21 23:31: Sodium 137, Potassium 3.6, BUN 11, Creatinine 0.77, Glucose 89, Magnesium 2.2, Total Bilirubin 0.2, AST 21, ALT 25, Alkaline Phosphatase 167 H Assessment and Plan - Problems (Diagnosis) (1) CAD (coronary artery disease) Current Visit: Yes Status: Chronic Qualifiers: Coronary Disease-Associated Artery/Lesion type: unspecified vessel or lesion type [place] vs. transplanted heart: [place] heart Associated angina: with unstable angina Qualified Code(s): I25.110 - Atherosclerotic heart disease of [place] coronary artery with unstable angina pectoris (2) Chest pain Current Visit: Yes Status: Acute (3) Epilepsy Current Visit: No Status: Chronic Qualifiers: Epilepsy type: due to external causes Intractability: not intractable Status epilepticus: without status epilepticus Qualified Code(s): G40.509 - Epileptic seizures related to external causes, not intractable, without status epilepticus (4) Hypertension Current Visit: Yes Status: Chronic Qualifiers: Hypertension type: primary hypertension Qualified Code(s): I10 - Essential (primary) hypertension (5) COPD (chronic obstructive pulmonary disease) Current Visit: Yes Status: Acute Qualifiers: COPD type: unspecified COPD Qualified Code(s): J44.9 - Chronic obstructive pulmonary disease, unspecified - Plan -Initial troponin neg. Will trend q6hx2. -Cardiology consulted. Patient had echo in Aug 2021 that was normal. -Atorvastatin and aspirin daily -monitor on telemetry -pain management and anti-emetics PRN -lipid panel and TSH ordered -hydralazine PRN BP spikes -continue home medications -Lovenox for VTE ppx Discharge Plan: Home Plan to discharge in: 24 Hours - Advance Directives Does patient have a Living Will: No Does patient have a Durable POA for Healthcare: No - Code Status/Comfort Care Code Status Assessed: Yes (Full) Critical Care: No Time Spent Managing Pts Care (In Minutes): 70
[2021-12-09] MEDS ORDERED: ALBUTEROL 2.5 MG/3 ML NEB SOL ONE (04:49)
[2021-12-09] MEDS ORDERED: ALBUTEROL 2.5 MG/3 ML NEB SOL NEB PRN (05:01)
[2021-12-09] MEDS ORDERED: ACETAMINOPHEN 500 MG TAB PO PRN (05:01)
[2021-12-09 05:10] VITALS: BMI 29.2
[2021-12-09] MEDS ORDERED: ASPIRIN EC 81 MG TAB PO ONE (08:51)
[2021-12-09] MEDS ORDERED: MORPHINE 2 MG/ML SYR ONE ×3 (08:51→20:45)
[2021-12-09] MEDS ORDERED: ENOXAPARIN 40 MG/0.4 ML SQ ONE (08:52)
[2021-12-09] MEDS: MORPHINE 2 MG/ML SYR IV PRN ×3 (09:04→20:49)
[2021-12-09] MEDS: ENOXAPARIN 40 MG/0.4 ML SQ SCH (09:04)
[2021-12-09] MEDS: ASPIRIN EC 81 MG TAB PO SCH (09:06)
[2021-12-09] MEDS: ONDANSETRON 4 MG/2 ML VIAL IV PRN ×2 (09:06→15:34)
[2021-12-09] MEDS ORDERED: REGADENOSON 0.4 MG/5 ML SYR IV ONE (10:00)
--- NOTE | 2021-12-09 11:25 | EKG ---
Test Date: 2021-12-08 Test Time: 23:19:09 Room Service Clerk: SHANIQUE MEASUREMENT RESULTS: Intervals: Rate: 98 HI: 144 QRSD: 74 QT: 368 QTc: 469 Preston: P: 76 HI: 144 QRS: 131 T: 56 INTERPRETIVE STATEMENTS: Normal sinus rhythm Right axis deviation Pulmonary disease pattern Abnormal ECG Compared to ECG 11/24/2021 17:20:13 Right-axis deviation now present Sinus tachycardia no longer present Atrial abnormality no longer present Myocardial infarct finding no longer present Electronically Signed On 12-09-21 11:23:18 CDT by Migel Warren
--- NOTE | 2021-12-09 13:38 | RAD REPORT ---
EXAM DESCRIPTION: NM - Rest Stress Cardiac Imaging - 12/09/2021 1:25 pm CLINICAL HISTORY: Chest pain COMPARISON: June 2014 stress study TECHNIQUE: The patient was administered 10.8 mCi of Tc 99m Sestamibi prior to resting SPECT imaging of the heart. The patient was then administered 30.2 mCi of Tc 99m Sestamibi following exercise or ph armacologic stress. Multiplanar SPECT images were reviewed. FINDINGS: The end diastolic volume is 124 ml, the end systolic volume is 76 ml, and the ejection fra ction is 39 %. End-diastolic volume is increased minimally. The ejection fraction has significantly d ecreased since 2013. No definitive stress-induced ischemia is seen. At the anteroseptal apex the stress sequencing shows a slight decrease in activity that is fractionally more pronounced than the diminished activity on the rest sequencing. A minimal focus of stress ischemia is unlikely but not entirely excluded. Is would be a new finding from 2013. Elsewhere no other site of scarring or stress induced ischemia. IMPRESSION: Minimal focus of diminished activity anteroseptal apex is fractionally more pronounced o n the stress sequencing. True stress ischemia is doubtful but not entirely excluded. Elsewhere no scarring or stress ischemia changes seen. End-diastolic volume was calculated at 124 mL, fractionally increased from 2014. Today's ejection fra ction was 39% compared to 52% in 2014.
--- NOTE | 2021-12-09 13:46 | CON ---
Date of Consultation: 12/09/[address] Santillan on 12/08/2021. I saw the patient on 12/09/2021. Reason For Consultation: Chest pain. History Of Present Illness: Ms. Coon is a 51-year-old woman. She has a history of CAD with a hear t attack long time ago with no intervention. Has a history of COPD and seizure disorder. Came in wi th positive cocaine and drug use with substernal to mid-epigastric chest pressure that has been going on for about 2 days with some nausea. No vomiting. No diaphoresis. Denied shortness of breath, PN D, orthopnea, pedal edema, palpitation, or syncope. Her troponin is negative. EKG is unremarkable. Past Medical History: As stated above. Allergies: SHE IS ALLERGIC TO FLUOXETINE. Medications: Include inhalers, Keppra, and Klonopin. Review of Systems: Negative. Social History: Positive for drug use. Family History: Positive for heart disease. Physical Examination: Vital Signs: Stable, afebrile. HEENT: Negative. Neck: Supple with no bruit. Chest: Clear to auscultation and percussion. Cardiac: Revealed a regular rhythm and rate. No murmurs, gallops, or rubs. Abdomen: Benign. Extremities: Revealed no clubbing, cyanosis, or edema. Diagnostic Data: Noted earlier. Impression And Plan: Atypical chest pain, could be related to gastroesophageal reflux disease or eso phageal spasm and certainly could be coronary artery disease. She is hypertensive. I will start her on Norvasc, continue her home medications, obtain a pharmacologic stress test today. We will see wh at that shows before making further decisions. Her chronic obstructive pulmonary disease is stable. Her seizure is stable on Keppra, and she sees Dr. Ireland in that regard. Her primary care physici an is Dr. Hutchins from [facility]. I will continue to follow her along. LANG/JOSELYN Voice ID: [id number] Report ID: [id number]
--- NOTE | 2021-12-09 13:51 | RAD REPORT ---
EXAM DESCRIPTION: Chest Single View RadLex: XR CHEST 1 VIEW CLINICAL HISTORY: CHEST PAIN. COMPARISON: Chest radiograph from November 13, 2021. TECHNIQUE: Single view AP chest radiograph(s). FINDINGS: The lungs are clear. No pulmonary infiltrate or edema identified. No pleural effusion. N o pneumothorax. Nonenlarged cardiomediastinal silhouette. No significant osseous abnormality. IMPRESSION: No acute cardiopulmonary abnormality identified by radiograph. Electronically signed by: Komal Evans MD 12/09/2021 12:39 AM CDT Due to temporary technical issues with the PACS/Fluency reporting system, reports are being signed by the in house radiologist without review as a courtesy to ensure prompt reporting. The interpreting r adiologist is fully responsible for the content of the report.
--- NOTE | 2021-12-09 17:07 | P.PN ---
Date of Service: 12/09/21 Patient seen and examined. Seen by cardiology who recommended stress test Nuclear stress test reported marginally positive stress-induced ischemia. Dr. Warren recommend cardiac catheterization tomorrow. Continue aspirin and Lipitor. We will add metoprolol. Resume antiseizure medications. Supportive measures.
[2021-12-09] MEDS: METOPROLOL TAR 25 MG TAB PO SCH (18:50)
[2021-12-09] MEDS ORDERED: METOPROLOL TAR 25 MG TAB ONE (18:53)
[2021-12-09] MEDS ORDERED: levETIRAcetam 500 MG TAB ONE (20:45)
[2021-12-09] MEDS ORDERED: clonazePAM 1 MG TAB ONE (20:45)
[2021-12-09] MEDS ORDERED: ATORVASTATIN 20 MG TAB ONE (20:46)
[2021-12-09] MEDS: ATORVASTATIN 40 MG TAB PO SCH (20:49)
[2021-12-09] MEDS: clonazePAM 1 MG TAB PO SCH (20:49)
[2021-12-09] MEDS: levETIRAcetam 500 MG TAB PO SCH (20:49)
[2021-12-10] MEDS ORDERED: MORPHINE 2 MG/ML SYR ONE ×2 (00:57→05:08)
[2021-12-10] MEDS ORDERED: ONDANSETRON 4 MG/2 ML VIAL ONE ×2 (00:57→13:19)
[2021-12-10] MEDS: MORPHINE 2 MG/ML SYR IV PRN ×5 (01:01→20:55)
[2021-12-10] MEDS: ONDANSETRON 4 MG/2 ML VIAL IV PRN ×3 (01:02→20:55)
[2021-12-10 03:57] LABS: Thyroid Stimulating Hormone 4.37 uIU/mL (0.360-3.740)
[2021-12-10] MEDS: METOPROLOL TAR 25 MG TAB PO SCH ×2 (06:00→18:00)
[2021-12-10] MEDS ORDERED: HEPA 1000U/500MLS 1,000 UNIT/500 ML BAG IV ONE (06:26)
[2021-12-10] MEDS ORDERED: levETIRAcetam 1,000 MG in NA CHLORIDE 0.9% 100 ML IV ONE (07:27)
[2021-12-10] MEDS ORDERED: KETAMINE HCL 500 MG/5 ML VIAL ONE (07:46)
[2021-12-10] MEDS ORDERED: NA CHLORIDE 0.9% 100 ML ONE (07:46)
[2021-12-10] MEDS ORDERED: LEVETIRACETAM 500 MG/5 ML VIAL IV ONE (07:47)
[2021-12-10] MEDS ORDERED: NA CHLORIDE 0.9% 500 ML ONE (07:57)
[2021-12-10] MEDS: ENOXAPARIN 40 MG/0.4 ML SQ SCH (09:00)
[2021-12-10] MEDS: clonazePAM 1 MG TAB PO SCH ×2 (09:00→20:47)
[2021-12-10] MEDS: ASPIRIN EC 81 MG TAB PO SCH (09:00)
[2021-12-10] MEDS ORDERED: MIDAZOLAM HCL 2 MG/2 ML INJ ONE ×2 (10:00→11:14)
[2021-12-10] MEDS ORDERED: FENTANYL CITR 100 MCG/2 ML ONE (10:00)
[2021-12-10] MEDS ORDERED: ATROPINE SULF 1 MG/10 ML SYR IV ONE (10:01)
[2021-12-10] MEDS ORDERED: NA CHLORIDE 0.9% 0 ML ONE (10:01)
--- NOTE | 2021-12-10 10:26 | TREADPHA ---
DX: CHEST PAIN Date of Study: 12/09/2021 Ht: 5' 3 " Wt: 164 lb 15.903 oz Consulting Physician: SHLOMO MEDICATIONS: ASPIRIN, LIPITOR, LOVENOX, ZOFRAN HISTORY: SEIZURE, MYOCARDIAL INFARCTION PHYSICIAL EXAMINATION: RESTING B.P.: 152/100 RESTING H.R.: 80 RESTING EKG: SINUS RHYTHM, LOW VOLTAGE PROTOCOL: PHARMACOLOGIC EXERCISE TIME: 3:30 B.P. AT PEAK STRESS: 136/83 IMPRESSION: LEXISCAN STRESS TEST PERFORMED. CARDIOLITE INJECTED PER PROTOCOL. SEE NUCLEAR MEDICINE REPORT. NO SUPRAVENTRICULAR TACHYCARDIA. NO VENTRICULAR TACHYCARDIA. NO ARRHYTHMIAS NOTED. RESPIRATORY EVEN NONLABORED. PATIENT TOLERATED WELL.
[2021-12-10] MEDS ORDERED: DIAZEPAM 10 MG/2 ML INJ SYRINGE IV ONE ×3 (11:30→16:55)
[2021-12-10] MEDS ORDERED: MORPHINE 4 MG/ML SYR ONE (13:19)
--- NOTE | 2021-12-10 14:42 | RAD REPORT ---
EXAM DESCRIPTION: CT - Ct Stroke Brain Wo Cont - 12/10/2021 2:27 pm CLINICAL HISTORY: R/O Stroke COMPARISON: Head Brain Wo Cont dated 11/24/2021; Chest Single View dated 12/09/2021 TECHNIQUE: Axial 5 millimeter thick images of the head were obtained without IV contrast. All CT scans are performed using dose optimization technique as appropriate and may include automated exposure control or mA/KV adjustment according to patient size. FINDINGS: No intracranial hemorrhage, mass, or cerebral edema. No acute cortical based infarction. N o cortical edema or sulcal effacement. No infarction changes are evident. Patient has no atrophy or c hronic ischemic change evident. No extra-axial fluid collections. Morton matter-white matter different iation is preserved. Visualized portions of the mastoid air cells, paranasal sinuses, and orbits are unremarkable. Findings telephoned to Dr Parham 2:36 p.m. IMPRESSION: No CT evidence of acute intracranial process.
[2021-12-10 15:03] LABS: Absolute Lymphocytes (CBC) 1.9 K/uL (0.7-4.9); Hematocrit 37.3 % (36.0-45.0); Lymphocytes % 30.1 % (15.3-44.8); RBC Red Blood Cell Count 4.41 M/uL (3.86-4.86)
[2021-12-10 15:07] LABS: Protime INR 0.97
[2021-12-10 15:12] LABS: Potassium 4.3 mmol/L (3.5-5.1)
[2021-12-10] MEDS ORDERED: TENECTEPLASE 50 MG/10 ML VIAL IV STA (15:17)
--- NOTE | 2021-12-10 15:30 | RAD REPORT ---
EXAM DESCRIPTION: CT - Head angio - 12/10/2021 3:07 pm CLINICAL HISTORY: R sided weakness, diminished sensation TECHNIQUE: During dynamic enhancement using nonionic IV contrast, axial 1 millimeter thick images of the head were obtained. Sagittal and axial reconstruction images were generated using MIP technique and reviewed. All CT scans are performed using dose optimization technique as appropriate and may include automated exposure control or mA/KV adjustment according to patient size. COMPARISON: CT head same date FINDINGS: No aneurysm or vascular malformation identified. Major venous sinuses are patent. No significant stenosis, named branch occlusion, vasculitis or other significant vascular finding iker ntifiable. Calcifications are present in the cavernous sinus portions of each internal carotid artery . This does not cause any significant luminal narrowing. IMPRESSION: Negative CT angio head examination.
[2021-12-10] MEDS ORDERED: TRAMADOL HCL 50 MG TAB PO PRN (16:13)
--- NOTE | 2021-12-10 19:16 | RAD REPORT ---
EXAM DESCRIPTION: MRI - Brain W/Wo Cont - 12/10/2021 6:26 pm CLINICAL HISTORY: R sided weakness, diminished weakness COMPARISON: Ct Stroke Brain Wo Cont dated 12/10/2021 TECHNIQUE: Sagittal and axial T1-weighted images were obtained. Axial PD/heavily T2-weighted and T2- FLAIR images were obtained along with axial DWI/ADC mapping sequences. Coronal heavily T2 weighted s equence obtained. Axial and coronal post-contrast T1-weighted images were also obtained. A 17 ml Mul tihance contrast following utilized. FINDINGS: No intracranial hemorrhage, mass or acute infarction. There is no edema or shift of midli ne structures. No extra-axial fluid collections. Morton-matter/white matter junction is preserved. Sig nal voids are seen as a normal finding in the major intracranial vessels. No significant atrophy sewell ges are present. Ventricles are normal. Scattered areas of hyperintense T2/IR signal seen in the cere bral white matter typical for a mild chronic ischemic pattern. There is minimal central pontine chron ic ischemic pattern as well. Given the patient's age, vasculitis and migraine headache etiologies are possible. Demyelinization is not likely but cannot be excluded. Correlation can be made with history and exam findings. Post-contrast images show normal enhancement. No dural thickening. No globe or orbital content abnormality. Mastoid air cells are clear. No air-fluid level in the sinus es. Left maxillary sinus mucosal thickening is present, mild in degree. IMPRESSION: No acute infarction. No mass, hemorrhage or other acute intracranial finding. Cerebral white matter and brainstem signal abnormalities are present typically chronic ischemic golden e. Given the patient's relatively young age, vasculitis, migraine headache and myelinization etiologi es should be considered and correlated with history and exam findings.
[2021-12-10] MEDS: levETIRAcetam 500 MG TAB PO SCH (20:47)
[2021-12-10] MEDS: ATORVASTATIN 40 MG TAB PO SCH (20:47)
[2021-12-10] MEDS: FLUOXETINE 20 MG CAP PO SCH (20:48)
--- NOTE | 2021-12-10 21:43 | OP ---
Date of Procedure: 12/10/2021 Surgeon: Migel Warren MD Chief Cloth Finishing Range Operator: Ms. Melissa Pugh. The patient will be at bedrest for 6 hours, after holding pressure over the right groin. She will go home later on today. Follow up in the office in 2 weeks. She needs to be on aspirin and a statin a nd a low dose beta-jennifer. Indications: Admitted to Dr. Salinas on 12/09/2021, had a positive stress test. Brought to the field laboratory operator today as an inpatient on 12/10/2021. Procedure In Detail: Prepped and draped in routine sterile fashion. Given Versed and fentanyl for s edation. She underwent a left heart catheterization, selective coronary arteriogram and common femor al artery angiogram. A 6-Djiboutian sheath introduced in the right common femoral artery successfully. Justice catheter, left and right were used to do the diagnostic catheterization as well as common fem oral artery angiogram. She had 100% profunda, minor plaquing in the LAD and circumflex. There were no complications. Blood loss was 5 cc. Postoperative Diagnosis: Moderate coronary artery disease, 100% profunda. Treatment is medical. Total conscious sedation 30 minutes. NB/MODL Voice ID: [id number] Report ID: [id number]
--- NOTE | 2021-12-10 22:26 | P.PN ---
Date of Service: 12/10/21 Subjective: no acute events overnight cardiac cath done this morning patient noted to have 2 <30 second seizures on table ~5 minutes apart after seizure / received valium, patient was sleepy, but moving all extremities ok transferred to ICU From PACU for seizure precautions. Upon arrival to ICU, patient was noted to have RUE/RLE weakness and lack of sensation Code stroke called ROS: 10 point ROS as noted above, otherwise negative Physical exam GEN: Alert, oriented, NAD HEENT: Normal conjunctiva, sclera anicteric, EOMI CV: Regular rate and rhythm, no edema Pulm: Nonlabored respirations on room air ABD: Soft, nontender, nondistended Integumentary: No rashes Neuro: Normal speech, normal affect, 4/5 RUE/RLE, lack of sensation to pain in RUE/RLE, no facial nerve palsies Problem List Chest pain Epilepsy R-sided weakness and sensation losse, acute h/o HTN h/o COPD s/p cath, normal coronary arteries had 2 seizures noted on table; patient states keppra was increased ~2-3 months ago and had bet continue home dose of keppra unclear if acute stroke vs polly paralysis neuro consulted CT brain, CTA brain negative discussed with Dr. Ireland and Neuro on transfer center - recommended tnk to be given cath nurse reports unable to use device closer; discussed with primitivo - no other concerns MRI ordered PT consult Code: full Dispo: home, ~2-3 days Time Spent Managing Pts Care (In Minutes): 35
[2021-12-11] MEDS: MORPHINE 2 MG/ML SYR IV PRN ×5 (02:07→17:39)
[2021-12-11] MEDS: ONDANSETRON 4 MG/2 ML VIAL IV PRN ×3 (02:07→17:43)
[2021-12-11 05:38] LABS: Hematocrit 34.3 % (36.0-45.0); MPV 6.3 fL (7.6-11.3); RBC Red Blood Cell Count 4.08 M/uL (3.86-4.86)
[2021-12-11 05:47] LABS: Bilirubin Total 0.2 mg/dL (0.2-1.0); Potassium 4.4 mmol/L (3.5-5.1); Protein, Total 6.3 g/dL (6.4-8.2)
[2021-12-11] MEDS: METOPROLOL TAR 25 MG TAB PO SCH ×2 (06:04→17:08)
--- NOTE | 2021-12-11 06:28 | P.PN ---
Date of Service: 12/11/21 Subjective: slight improvement in weakness/sensation - feels some pressure, but no sharp pain reports pain in R groin with movement of leg ROS: 10 point ROS as noted above, otherwise negative Physical exam GEN: Alert, oriented, NAD HEENT: Normal conjunctiva, sclera anicteric, EOMI CV: Regular rate and rhythm, no edema Pulm: Nonlabored respirations on room air ABD: Soft, nontender, nondistended Integumentary: No rashes Neuro: Normal speech, normal affect, 4/5 RUE/RLE, lack of sensation to pain in RUE/RLE, no facial nerve palsies Problem List Chest pain Epilepsy R-sided weakness and sensation loss, acute CVA h/o HTN h/o COPD s/p cath, normal coronary arteries had 2 seizures noted on table; patient states keppra was increased ~2-3 months ago and had better control than previous months continue home dose of keppra neuro consulted suspected acute stroke, tnk given on 12/10 CT brain, CTA brain negative; MRI negative check U/S of R groin, patient reporting lots of pain/discomfort in area, r/o hematoma, no obvious findings on exam PT consult Code: full Dispo: home, ~1-2 days Time Spent Managing Pts Care (In Minutes): 35
[2021-12-11] MEDS: FLUOXETINE 20 MG CAP PO SCH (07:38)
[2021-12-11] MEDS: levETIRAcetam 500 MG TAB PO SCH ×2 (07:38→20:00)
[2021-12-11] MEDS: clonazePAM 1 MG TAB PO SCH ×2 (07:38→20:00)
[2021-12-11] MEDS: CODEINE 30MG/APAP 300MG TAB PO PRN ×2 (08:26→15:24)
--- NOTE | 2021-12-11 11:41 | RAD REPORT ---
EXAM DESCRIPTION: US - Lower Extremity Artery Uni Ltd - 12/11/2021 10:51 am CLINICAL HISTORY: Evaluate hematoma COMPARISON: None FINDINGS: Color Doppler, grayscale, and spectral analysis was performed. The right common femoral, superficial femoral and popliteal arteries demonstrate triphasic waveforms The posterior tibial and dorsalis pedis arteries demonstrate biphasic waveforms bilaterally. No hematoma identified IMPRESSION: No flow limiting stenosis in the right lower extremity. No lower extremity hematoma iden tified.
--- NOTE | 2021-12-11 16:26 | RAD REPORT ---
EXAM DESCRIPTION: CT - Head Brain Wo Cont - 12/11/2021 4:18 pm CLINICAL HISTORY: S/P TNK, R/O bleed Headache, drowsiness COMPARISON: Head angio dated 12/10/2021; Ct Stroke Brain Wo Cont dated 12/10/2021 TECHNIQUE: All CT scans are performed using dose optimization technique as appropriate and may inclu de automated exposure control or mA/KV adjustment according to patient size. FINDINGS: No intracranial hemorrhage, hydrocephalus or extra-axial fluid collection.No areas of brai n edema or evidence of midline shift. The paranasal sinuses and mastoids are clear except a small amount of mucus in the left maxillary ant rum. The calvarium is intact. IMPRESSION: No acute intracranial abnormality.
[2021-12-11] MEDS: ATORVASTATIN 40 MG TAB PO SCH (20:00)
--- NOTE | 2021-12-11 22:19 | CON ---
Reason For Consultation: Consultation called because of possible stroke, weakness on the right side and pain after the patient had a cardiac catheterization. History Of Present Illness: She developed sudden onset of pain and weakness in the right upper and l ower extremities and had arterial puncture about 6 hours prior. The patient was evaluated for possib le contraindications to receiving tissue plasminogen activator and head CT scan was negative. Since the site was incompressible site in the groin and the administrative supervisor's consultation agreed that it shou ld not pose an issue, she did receive the TNK actually instead of tPA and then was sent to the ICU. In terms of her right arm and leg deficit, she has reported recovered full strength, but had some sen alison deficits in the right face, arm and leg that persist. She did have a subsequent head CT scan do ne 24 hours after that shows no acute intracranial abnormalities and no bleeding or hemorrhagic issue s there. CT angiogram of the head and neck shows no large vessel occlusion. Doppler study of the lo wer extremities showed no flow abnormalities in the right lower extremity. No evidence of a hematoma . Her laboratory studies show essentially unremarkable complete blood count with differential, except a slightly low hemoglobin 11.0. INR 0.97. Chemistries normal. Calcium slightly low at 8.2. TSH anahi vated to 4.37, LDL cholesterol 95, HDL 53, triglycerides 163. Urinalysis 3+ blood, otherwise unremar kable. Her toxicology screen is positive for cocaine, which the patient said she has used at least 3 days previously. COVID-19 test is negative. Past Medical History: Bipolar disorder, history of drug abuse including cocaine, cervical cancer, de pression, diverticulitis, herniated disk in back, myocardial infarction, muscle spasms, seizures, hyp ertension, stroke. Allergies: FLUOXETINE AND GREEN TEA. Home Medications: Levetiracetam 500 mg twice daily. Past Surgical History: Cervical fusion, tonsillectomy, and cholecystectomy. Family History: Noncontributory. Social History: Cocaine, alcohol, and tobacco use. Physical Examination: Vital Signs: Blood pressure 126/76, pulse 66, respiratory rate up to 16-25, temperature 97.9, oxygen saturation 97% on room air. General: Ms. Coon is resting comfortably in ICU. She is in no acute distress. HEENT: She is normocephalic, atraumatic. Sclerae anicteric. Oropharynx is moist and pink. Neck: Supple. Chest: Clear. Heart: Regular. Extremities: No clubbing, cyanosis, or edema. Neurologic: She is alert and oriented to person, place, situation. She has no obvious cranial nerve deficits except there is possible decreased light touch in the right face compared to the left side. Her motor examination shows it to be intact in the upper and lower extremities, but no focal weakne ss noted. Sensory exam with mild decreased light touch and temperature in the right upper and lower extremities compared to the left side. Coordination intact to lower extremities. Reflexes symmetric 2+ in upper and lower extremities. She was ambulated with physical therapy. She ambulated with a f ront wheel walker with contact guard assistance 25 feet. She did have some tendency to fall to the r ight. Assessment: Ms. Coon is a 51-year-old patient who had cardiac cath and possible stroke, received T NK with near-complete resolution of her symptoms. She does have cocaine abuse and multiple stroke ri sk factors in addition to myocardial infarction risk factors. Plan: 1.Evaluate for possible admission to the Rehab Unit. 2.The patient was instructed to stop using illegal drugs including cocaine. 3.She was told to be compliant with her medications as indicated, which will include aspirin, Plavix , folic acid, and statin. 4.She may be discharged from the ICU on the floor and after discharge if she does not come to Rehab Unit, follow up with Dr. Ireland's office in 1 month and she may have outpatient physical therapy depending on how she is doing. DENNIS/JOSELYN Voice ID: [id number] Report ID: [id number]
[2021-12-12] MEDS: CODEINE 30MG/APAP 300MG TAB PO PRN ×2 (00:26→05:32)
[2021-12-12] MEDS: ONDANSETRON 4 MG/2 ML VIAL IV PRN ×2 (02:43→08:49)
[2021-12-12] MEDS: MORPHINE 2 MG/ML SYR IV PRN (02:43)
[2021-12-12 05:10] LABS: Hematocrit 32.7 % (36.0-45.0); MPV 6.2 fL (7.6-11.3); RBC Red Blood Cell Count 3.84 M/uL (3.86-4.86)
[2021-12-12] MEDS: METOPROLOL TAR 25 MG TAB PO SCH (05:26)
--- NOTE | 2021-12-12 06:25 | P.PN ---
Date of Service: 12/12/21 Subjective: ROS: 10 point ROS as noted above, otherwise negative Physical exam GEN: Alert, oriented, NAD HEENT: Normal conjunctiva, sclera anicteric, EOMI CV: Regular rate and rhythm, no edema Pulm: Nonlabored respirations on room air ABD: Soft, nontender, nondistended Integumentary: No rashes Neuro: Normal speech, normal affect, 4/5 RUE/RLE, lack of sensation to pain in RUE/RLE, no facial nerve palsies Problem List Chest pain Epilepsy R-sided weakness and sensation loss, acute CVA h/o HTN h/o COPD s/p cath, normal coronary arteries had 2 seizures noted on table; patient states keppra was increased ~2-3 months ago and had better control than previous months continue home dose of keppra neuro consulted suspected acute stroke, tnk given on 12/10 CT brain, CTA brain negative; MRI negative check U/S of R groin, patient reporting lots of pain/discomfort in area, r/o hematoma, no obvious findings on exam PT consult Code: full Dispo: home, ~1-2 days Time Spent Managing Pts Care (In Minutes): 35
[2021-12-12] MEDS ORDERED: MORPHINE 2 MG/ML SYR IV PRN (06:27)
[2021-12-12] MEDS: FLUOXETINE 20 MG CAP PO SCH (08:06)
[2021-12-12] MEDS: levETIRAcetam 500 MG TAB PO SCH (08:06)
[2021-12-12] MEDS: clonazePAM 1 MG TAB PO SCH (08:06)
--- NOTE | 2021-12-12 08:37 | RAD REPORT ---
EXAM DESCRIPTION: RAD - Chest Single View - 12/12/2021 6:47 am CLINICAL HISTORY: hypoxia, seizures, s/p cardiac cath Chest pain. COMPARISON: Chest Single View dated 12/09/2021; Chest Single View dated 11/24/2021; Chest Single View d ated 11/13/2021; Chest Single View dated 09/25/2021 FINDINGS: Portable technique limits examination quality. The lungs are grossly clear. The heart is normal in size. No displaced fractures.Cervical hardware pl ate. IMPRESSION: No acute intrathoracic process suspected.
[2021-12-12] MEDS ORDERED: CLOPIDOGREL 75 MG TABLET PO SCH (09:00)
[2021-12-12] MEDS ORDERED: FOLIC ACID 1 MG TABLET PO SCH (09:00)
[2021-12-12] MEDS ORDERED: ASPIRIN EC 81 MG TAB PO SCH (09:00)
[2021-12-12 10:10] VITALS: O2SAT 97
[2021-12-12 11:27] VITALS: TEMP 97.1
[2021-12-12 11:28] VITALS: BP 111/47
--- NOTE | 2021-12-12 22:33 | P.DS ---
Admission Date: 12/09/21 Discharge Date: 12/12/21 Disposition: AMA-LEFT AGAINST MEDICAL ADVIC Discharge Condition: GOOD Reason for Admission: Chest Pain Consultations: Neurology - Dr. Ireland Cardiology - Dr. Warren Procedures: Problem List Chest pain Epilepsy R-sided weakness and sensation loss, acute CVA cocaine use h/o HTN h/o COPD Brief History of Present Illness: 51-year-old female PMH of CAD, [place], HTN, and seizure disorder who presented to the ED with complaints of substernal chest pain radiating to her left arm, shoulder, and jaw beginning approximately 12 hours ago. She describes the pain as a heaviness/pressure. Patient was admitted here about 2 months for chest pain with negative cardiac work-up. Labs significant for BNP of 605 and tox screen positive for cocaine. She reports using cocaine 4 days ago. EKG without ST changes and troponin WNL. She was given Lovenox and aspirin in ED. She has been a little hypertensive at 160/105. Upon my assessment, patient states that her pain is improved, but she is still experiencing some nausea and mild chest pain. Hospital Course: Patient underwent cardiac catheterization for further evaulation of her chest pain. No significant stenosis, no procedure indicated. 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 Lasted ~30 seconds, and ~5 min apart. Patient was given valium after each episode. She was maintained on her home regimen of keppra. After patient was transferred to the ICU For further monitoring, she was then noticed to have R sided weakness and lack of sensation to R upper and lower extremities. Code stroke was called. Patient was immediately taken to CT which was negative. CTA was negative. She was given TNK without complications. She had gradual improvement of her deficits. MRI Did not reveal any acute/subacute findings. During her hospitalization, patient was very anxious at times, impulsive. The night before discharge patient was ambulating in hospital hallways and was even found outside the hospital. On day of discharge, patient was improving, discussed high likelihood of discharge in the early afternoon after further observation - as patient had a seizure episode overnight. Patient reportedly became impatient shortly after being told this plan and decided to leave AMA, did not want to wait to review medications and DC instructions. Patient's prescriptions were sent to her pharmacy -aspirin 81mg, plavix, statin, folic acid Vital Signs/Physical Exam: Temp Pulse Resp BP Pulse Ox 97.1 F 107 H 22 H 111/47 L 89 L 12/12/21 08:00 12/12/21 11:00 12/12/21 07:00 12/12/21 11:00 12/12/21 06:00 Physical exam GEN: Alert, oriented, NAD HEENT: Normal conjunctiva, sclera anicteric, EOMI CV: Regular rate and rhythm, no edema Pulm: Nonlabored respirations on room air ABD: Soft, nontender, nondistended Integumentary: No rashes Neuro: Normal speech, normal affect, 4+/5 RUE/4/5'RLE, lack of sensation to pain in RUE/RLE, no facial nerve palsies Laboratory Data at Discharge: WBC 6.6 K/uL (4.3-10.9) D 12/12/21 04:33 Hgb 10.6 g/dL (12.0-15.0) L 12/12/21 04:33 Hct 32.7 % (36.0-45.0) L 12/12/21 04:33 Plt Count 392 K/uL (152-406) 12/12/21 04:33 PT 10.7 SECONDS (9.5-12.5) 12/10/21 14:52 INR 0.97 12/10/21 14:52 APTT 33.3 SECONDS (24.3-36.9) 12/10/21 14:52 Sodium 138 mmol/L (136-145) 12/12/21 04:33 Potassium 4.0 mmol/L (3.5-5.1) 12/12/21 04:33 BUN 11 mg/dL (7-18) 12/12/21 04:33 Creatinine 0.70 mg/dL (0.55-1.3) 12/12/21 04:33 Glucose 98 mg/dL (74-106) 12/12/21 04:33 Magnesium 2.2 mg/dL (1.8-2.4) 12/08/21 23:31 Total Bilirubin 0.2 mg/dL (0.2-1.0) 12/11/21 05:08 AST 14 U/L (15-37) L 12/11/21 05:08 ALT 21 U/L (12-78) 12/11/21 05:08 Alkaline Phosphatase 142 U/L (45-117) H 12/11/21 05:08 Triglycerides 163 mg/dL (<150) H 12/10/21 02:55 Cholesterol 181 mg/dL (<200) 12/10/21 02:55 HDL Cholesterol 53 mg/dL (40-60) 12/10/21 02:55 Cholesterol/HDL Ratio 3.42 12/10/21 02:55 Home Medications: Fluoxetine HCl [Prozac] 1 tab PO DAILY 12/09/21 Levetiracetam [Keppra] 500 tab PO BID 12/09/21 clonazePAM [Klonopin] 1 tab PO BID 12/09/21 Aspirin [Aspirin EC 81 MG] 81 mg PO DAILY 30 Days #30 tablet. 12/12/21 Atorvastatin Calcium [Lipitor] 40 mg PO BEDTIME 30 Days #30 tab 12/12/21 Clopidogrel Bisulfate [Plavix*] 75 mg PO DAILY 30 Days #30 tablet 12/12/21 Folic Acid 1 mg PO DAILY 30 Days #30 tablet 12/12/21 levETIRAcetam [Keppra*] 1,000 mg PO DAILY tab 12/12/21 levETIRAcetam [Keppra*] 1,500 mg PO BEDTIME tab 12/12/21 New Medications: Aspirin [Aspirin EC 81 MG] 81 mg PO DAILY 30 Days #30 tablet. Folic Acid 1 mg PO DAILY 30 Days #30 tablet Atorvastatin Calcium [Lipitor] 40 mg PO BEDTIME 30 Days #30 tab Clopidogrel Bisulfate [Plavix*] 75 mg PO DAILY 30 Days #30 tablet Followup: Unknown,U [Primary Care Provider] - Time spent managing pt's care (in minutes): 40
== END 2021-12-12 11:52 | disposition left against medical advice (07) | DRG 286 ==
LOC: ER 22:44 → ERHOLD 12-09 00:42 → OBSVTOIN 12-09 08:12 → ERHOLD 12-09 09:00 → 3RD-ICU 12-10 13:14
PROVIDERS: ADMIT Internal Medicine; ATTEND Hospitalist
PROC: 4A023N7 Measurement of Cardiac Sampling and Pressure, Left Heart, Percutaneous Approach (ICD-10-PCS; principal; 2021-12-10)
PROC: B2011ZZ Plain Radiography of Multiple Coronary Arteries using Low Osmolar Contrast (ICD-10-PCS; 2021-12-10)
DX: I25.110 Atherosclerotic heart disease of native coronary artery with unstable angina pectoris (principal); I63.9 Cerebral infarction, unspecified; G81.91 Hemiplegia, unspecified affecting right dominant side; I25.2 Old myocardial infarction; I10 Essential (primary) hypertension; G40.909 Epilepsy, unspecified, not intractable, without status epilepticus; J44.9 Chronic obstructive pulmonary disease, unspecified; F41.8 Other specified anxiety disorders; F14.10 Cocaine abuse, uncomplicated; G43.909 Migraine, unspecified, not intractable, without status migrainosus; F17.210 Nicotine dependence, cigarettes, uncomplicated; Z53.29 Procedure and treatment not carried out because of patient's decision for other reasons; Z20.822 Contact with and (suspected) exposure to COVID-19; Z71.6 Tobacco abuse counseling
CPT/HCPCS: 36415; 70450; 70496; 70553; 71045; 78452; 80048; 80053; 80061; 80076; 80307; 81003; 81025; 82947; 83735; 83880; 84439; 84443; 84484; 85025; 85027; 85610; 85730; 93005; 93017; 93454; 93926; 94640; 94760; 96372; 96374; 96375; 97116; 97161; 97530; 99285; A9500; A9577; C1893; G0378; J0583; J1644; J1650; J1953; J2250; J2270; J2405; J2785; J3010; J3101; J3360; J7040; Q9967; U0003

== ENCOUNTER 2021-12-13 13:12 | Inpatient (IN) | payer SELFPAY ==
--- OUTSIDE RECORDS SUMMARY | 2021-12-13 13:17 | XMS REPORT | Continuity of Care Document ---
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 09-27 it y of disorder disorder 00:00: [place] [facility] Breast Breast Disease Active Univers mass, left mass, left 3 it y of 00:00: [place] [facility] Anxiety Anxiety Disease Active Univers 3 ity of 00:00: Medical Branch Lower back Lower back Disease Active U nivers pain pain 3 ity of 00:00: [place] [facility] High blood High blood Disease Active U nivers pressure pressure 3 ity of 00:00: [place] [facility] COPD COPD Disease Active Univers (chronic (chronic 3 ity of obstructiv obstructiv [place] 00 Medical pulmonary pulmonary Bran ch disease) disease) Obesity Obesity Disease Active Univers 3- ity of 00:00: [place] 00 Medical Branch Allergies, Adverse Reactions, Alerts [...] tobacco Cigar Smoker Univ ersity of use [facility] Exposure to 2021-11-13 2021-11-23 Not sure University of SARS-CoV-2 (event) 00:00:00 15:13:00 [facility] Alcohol intake 2021-11-23 2021-11-23 0 /d University of 00:00:00 00:00:00 [facility] Cigarettes smoked 2021-03-14 2021-03-14 Univers ity of current (pack per 00:00:00 00:00:00 ) - Reported Branch Cigarette 2021-03-14 2021-03-14 University of pack-years 00:00:00 00:00:00 [facility] Tobacco use and 2021-03-14 2021-03-14 Never used Universit y of exposure 00:00:00 00:00:00 [facility] Sex [birth year] Universit y of 00:00:00 00:00:00 [facility] Smoking Status Start Date Stop Date Source Current every day smoker 2021-03-14 00:00:00 Uni versity of [facility] Medications Ordered Filled Start Stop [...] IV ity of (REGLAN) 22:30: 21:24 Push, [place] injection 00 :00 ONCE, 1 Medical 10 [...] IV ity of succ 01:57: 02:11 [place], [place] (SOLU-MEDRO 00 :00 ONCE, 1 Medic al [...] IV ity of succ 01:57: 02:11 [place], [place] (SOLU-MEDRO 00 :00 ONCE, 1 Medic al L) dose, Sat Branch injection 03/16/21 at 125 mg 2100, STAT ipratropium No 3mL 3 mL, Univ ers -albuteroL 03-17 Inhalation it y of (DUONEB) 01:57: 02:15 , ONCE, 1 Javier as 0.5 mg-3 00 :00 dose, Sat Medica l mg(2.5 mg 03/16/21 at Bran base)/3 mL 2100, MICHAEL nebulizer solution 3 mL levoFLOXaci 2020- No [id number] 500mg Take 1 Univers n 500 mg 03-17 tablet by ity o f tablet 00:00: 04:59 mouth [place] 00 :00 daily for Medical 6 days. Branch levoFLOXaci 2020- No [id number] 500mg Take 1 Univers n 500 mg 03-17 tablet by ity o f tablet 00:00: 04:59 mouth [place] 00 :00 daily for Medical 6 days. Branch levoFLOXaci 2020- No [id number] 500mg Take 1 Univers n 500 mg 03-17 tablet by ity o f tablet 00:00: 04:59 mouth [place] 00 :00 daily for Medical 6 days. Branch levoFLOXaci 2020- No [id number] 500mg Take 1 Univers n 500 mg 03-17 tablet by ity o f tablet 00:00: 04:59 mouth [place] 00 :00 daily for Medical 6 days. Branch predniSONE 2020- No [id number] 30mg Take 3 Univers 10 mg 03-17 tablets by ity of tablet 00:00: 04:59 mouth [place] 00 :00 daily for Medical 4 days. [place] predniSONE 2020- No [id number] 30mg Take 3 Univers 10 mg 8-17 04-03 tablets by ity of tablet 00:00: 04:59 mouth [place] 00 :00 daily for Medical 4 days. Branch predniSONE 2020-2020- No [id number] 30mg Take 3 Univers 10 mg 8-17 04-03 tablets by ity of tablet 00:00: 04:59 mouth [place] 00 :00 daily for Medical 4 days. Branch predniSONE 2020- No [id number] 30mg Take 3 Univers 10 mg 8-17 04- tablets by ity of tablet 00:00: 04:59 mouth [place] 00 :00 daily for Medical 4 days. [place] albuterol 2020- No [id number] 4{puff} 4 Puff, Univers (VENTOLIN) 03-15- Inhalation it y of inhaler 4 01:45: 00:44 , ONCE, 1 [place] Puff 00 :00 dose, Arpita Medical 03/14/21 at [place] 2044, Routine dexamethaso 2020- No [id number] 10mg 10 mg, Univers ne 03-15- Intramuscu ity of (DECADRON) 01:45: 00:45 lar, ONCE, [place] injection 00 :00 1 dose, Medical 10 mg Arpita [place] 03/14/21 at 5, Routine albuterol Yes [id number] 2.5mg Inhale 3 Univers 2.5 mg /3 8-27 mL every 4 ity of mL (0.083 00:00: (four) [place] %) 00 hours as Medical nebulizer needed for Bran ch solution Wheezing or Shortness of Breath. albuterol Yes [id number] 2.5mg Inhale 3 Univers 2.5 mg /3 8-27 mL every 4 ity of mL (0.083 00:00: (four) [place] %) 00 hours as Medical nebulizer needed for Bran ch solution Wheezing or Shortness of Breath. albuterol Yes [id number] 2.5mg Inhale 3 Univers 2.5 mg /3 8-27 mL every 4 ity of mL (0.083 00:00: (four) [place] %) 00 hours as Medical nebulizer needed for Bran ch solution Wheezing or Shortness of Breath. albuterol 2020-0 Yes [id number] 2.5mg Inhale 3 Univers 2.5 mg /3 8-27 mL every 4 ity of mL (0.083 00:00: (four) [place] %) 00 hours as Medical nebulizer needed for Bran ch solution Wheezing or Shortness of Breath. albuterol 2020-0 Yes [id number] 2.5mg Inhale 3 Univers 2.5 mg /3 8-27 mL every 4 ity of mL (0.083 00:00: (four) [place] %) 00 hours as Medical nebulizer needed for Bran ch solution Wheezing or Shortness of Breath. albuterol 2020-0 Yes [id number] 2.5mg Inhale 3 Univers 2.5 mg /3 8-27 mL every 4 ity of mL (0.083 00:00: (four) [place] %) 00 hours as Medical nebulizer needed for Bran ch solution Wheezing or Shortness of Breath. albuterol 2020-0 Yes [id number] 2.5mg Inhale 3 Univers 2.5 mg /3 8-27 mL every 4 ity of mL (0.083 00:00: (four) [place] %) 00 hours as Medical nebulizer needed for Bran ch solution Wheezing or Shortness of Breath. albuterol 2020-0 Yes [id number] 2.5mg Inhale 3 Univers 2.5 mg /3 8-27 mL every 4 ity of mL (0.083 00:00: (four) [place] %) 00 hours as Medical nebulizer needed for Bran ch solution Wheezing or Shortness of Breath. albuterol 2020-0 Yes [id number] 2.5mg Inhale 3 Univers 2.5 mg /3 [...] (KEPPRA 8-03 mouth. ity of ORAL) 19:45: [address] levetiracet Yes Take by Un lois am (KEPPRA 8-03 mouth. ity of ORAL) 19:45: [address] levetiracet Yes Take by Un lois am (KEPPRA 8-03 mouth. ity of ORAL) 19:45: [address] levetiracet Yes Take by Un lois am (KEPPRA 8-03 mouth. ity of ORAL) 19:45: [address] levetiracet Yes Take by Un lois am (KEPPRA 8-03 mouth. ity of ORAL) 19:45: [address] levetiracet Yes Take by Un lois am (KEPPRA 8-03 mouth. ity of ORAL) 19:45: [address] LISINOPRIL- 2020- No Take by U nivers HYDROCHLORO 02-19 mouth. ity o f THIAZIDE 19:41: 00:00 [place] ORAL 15 :00 [facility] dicyclomine 2020- No 20mg 20 mg, Uni [...] ity of (PF)) 17:00: 15:59 ONCE, 1 [place] injection 4 00 :00 dose, Tue Med ical mg 02/19/21 at Branch 1200, MICHAEL iopamidol 2020- No [id number] 100mL 100 mL, Univers (ISOVUE 02-19 Intravenou ity o f 370-500 mL) 16:35: 16:45 s, ONCE, 1 [place] injection 00 :00 dose, Tue Medic al 100 mL 02/19/21 at Branch 1145, Routine levetiracet Yes Take by Un lois am (KEPPRA 8-03 mouth. ity of ORAL) 14:45: [address] levetiracet 0 Yes Take by Un lois am (KEPPRA 8-03 mouth. ity of ORAL) 14:45: [address] levetiracet 0 Yes Take by Un lois am (KEPPRA 8-03 mouth. ity of ORAL) 14:45: [address] levetiracet 0 Yes Take by Un lois am (KEPPRA 8-03 mouth. ity of ORAL) 14:45: [address] proMETHazin Yes [id number] 25mg Take 1 Univers e 25 mg 8-03 tablet by ity of tablet 00:00: mouth [place] 00 every 6 Medical (six) Branch hours as needed for Nausea and Vomiting (N/V). dicyclomine 0 Yes [id number] 20mg Take 1 Univers 20 mg 8-03 tablet by ity of tablet 00:00: mouth 4 00 (four) Medical times Branch daily as needed for Abdominal pain. proMETHazin 2020-0 Yes [id number] 25mg Take 1 Univers e 25 mg 8-03 tablet by ity of tablet 00:00: mouth [place] 00 every 6 Medical (six) Branch hours as needed for Nausea and Vomiting (N/V). dicyclomine 2020-0 Yes [id number] 20mg Take 1 Univers 20 mg 8-03 tablet by ity of tablet 00:00: mouth (four) Medical times Branch daily as needed for Abdominal pain. proMETHazin 2020-0 Yes [id number] 25mg Take 1 Univers e 25 mg 8-03 tablet by ity of tablet 00:00: mouth [place] 00 every 6 Medical (six) Branch hours as needed for Nausea and Vomiting (N/V). dicyclomine 2020-0 Yes [id number] 20mg Take 1 Univers 20 mg 8-03 tablet by ity of tablet 00:00: mouth (four) Medical times Branch daily as needed for Abdominal pain. proMETHazin 2020-0 Yes [id number] 25mg Take 1 Univers e 25 mg 8-03 tablet by ity of tablet 00:00: mouth [place] 00 every 6 Medical (six) Branch hours as needed for Nausea and Vomiting (N/V). dicyclomine 2020-0 Yes [id number] 20mg Take 1 Univers 20 mg 8-03 tablet by ity of tablet 00:00: mouth (four) Medical times Branch daily as needed for Abdominal pain. proMETHazin 2020-0 Yes [id number] 25mg Take 1 Univers e 25 mg 8-03 tablet by ity of tablet 00:00: mouth [place] 00 every 6 Medical (six) Branch hours as needed for Nausea and Vomiting (N/V). dicyclomine 2020-0 Yes [id number] 20mg Take 1 Univers 20 mg 8-03 tablet by ity of tablet 00:00: mouth 4 00 (four) Medical times Branch daily as needed for Abdominal pain. proMETHazin 2020-0 Yes [id number] 25mg Take 1 Univers e 25 mg 8-03 tablet by ity of tablet 00:00: mouth [place] 00 every 6 Medical (six) Branch hours as needed for Nausea and Vomiting (N/V). dicyclomine 2021-0 Yes [id number] 20mg Take 1 Univers 20 mg 8-03 tablet by ity of tablet 00:00: mouth 4 00 (four) Medical times Branch daily as needed for Abdominal pain. proMETHazin 2020-0 Yes [id number] 25mg Take 1 Univers e 25 mg 8-03 tablet by ity of tablet 00:00: mouth [place] 00 every 6 Medical (six) Branch hours as needed for Nausea and Vomiting (N/V). dicyclomine 2020-0 Yes [id number] 20mg Take 1 Univers 20 mg 8-03 tablet by ity of tablet 00:00: mouth 00 (four) Medical times Branch daily as needed for Abdominal pain. proMETHazin 2020-0 Yes [id number] 25mg Take 1 Univers e 25 mg 8-03 tablet by ity of tablet 00:00: mouth [place] 00 every 6 Medical (six) Branch hours as needed for Nausea and Vomiting (N/V). dicyclomine 2020-0 Yes [id number] 20mg Take 1 Univers 20 mg 8-03 tablet by ity of tablet 00:00: mouth 00 (four) Medical times Branch daily as needed for Abdominal pain. proMETHazin 2020-0 Yes [id number] 25mg Take 1 Univers e 25 mg 8-03 tablet by ity of tablet 00:00: mouth [place] 00 every 6 Medical (six) Branch hours as needed for Nausea and Vomiting (N/V). dicyclomine 2020-0 Yes [id number] 20mg Take 1 Univers 20 mg 8-03 tablet by ity of tablet 00:00: mouth 00 (four) Medical times Branch daily as needed for Abdominal pain. proMETHazin 2020-0 Yes [id number] 25mg Take 1 Univers e 25 mg 8-03 tablet by ity of tablet 00:00: mouth [place] 00 every 6 Medical (six) Branch hours as needed for Nausea and Vomiting (N/V). dicyclomine 2020-0 Yes [id number] 20mg Take 1 Univers 20 mg 8-03 [...] o f mg tablet 20:05: every 8 [place] (eight) Medical hours as Branch needed. pantoprazol 2018-0 Yes 40mg Take 40 mg Univers e 7-24 by mouth ity of (PROTONIX) 20:05: daily. [place] 40 mg EC Medical tablet Branch ondansetron 2017-0 Yes 4mg Take 4 mg U nivers (ZOFRAN) 4 7-24 by mouth ity o f mg tablet 20:05: every 8 [place] [address] (eight) Medical hours as Branch needed. pantoprazol 2018-0 Yes 40mg Take 40 mg Univers e 7-24 by mouth ity of (PROTONIX) 20:05: daily. [place] 40 mg EC Medical tablet Branch LISINOPRIL- 2017-0 Yes Take by Un lois HYDROCHLORO 7-24 mouth. ity of THIAZIDE 20:05: [place] ORAL Medical Branch ondansetron 2018-0 Yes 4mg Take 4 mg U nivers (ZOFRAN) 4 7-24 by mouth ity o f mg tablet 20:05: every 8 [place] [address] (eight) Medical hours as Branch needed. pantoprazol 2018-0 Yes 40mg Take 40 mg Univers e 7-24 by mouth ity of (PROTONIX) 20:05: daily. [place] 40 mg EC Medical tablet Branch ondansetron 2018-0 Yes 4mg Take 4 mg U nivers (ZOFRAN) 4 7-24 by mouth ity o f mg tablet 20:05: every 8 [place] [address] (eight) Medical hours as Branch needed. pantoprazol 2018-0 Yes 40mg Take 40 mg Univers e 7-24 by mouth ity of (PROTONIX) 20:05: daily. [place] 40 mg EC Medical tablet Branch ondansetron [...] 7-24 by mouth ity of 19:58: daily. [place] 14 Medical Branch loratadine 2018-0 Yes Take by Uni vers (CLARITIN 7-24 mouth ity of LIQUI-GEL) 19:58: daily. [place] 10 mg 14 Medical capsule Branch MULTIVITAMI Yes 1{tbl} Take 1 Tab Univers N ORAL 7-24 by mouth ity of 19:58: daily. [place] [address] Medical Branch loratadine Yes Take by Uni vers (CLARITIN 7-24 mouth ity of LIQUI-GEL) 19:58: daily. [place] 10 mg 14 Medical capsule Branch MULTIVITAMI Yes 1{tbl} Take 1 Tab Univers N ORAL 7-24 by mouth ity of 19:58: daily. [place] [address] Medical Branch loratadine Yes Take by Uni vers (CLARITIN 7-24 mouth ity of LIQUI-GEL) 19:58: daily. [place] 10 mg 14 Medical capsule Branch MULTIVITAMI Yes 1{tbl} Take 1 Tab Univers N ORAL 7-24 by mouth ity of 19:58: daily. [address] loratadine Yes Take by Uni vers (CLARITIN 7-24 mouth ity of LIQUI-GEL) 19:58: daily. [place] 10 mg 14 Medical capsule Branch MULTIVITAMI Yes 1{tbl} Take 1 Tab Univers N ORAL 7-24 by mouth ity of 19:58: daily. [address] loratadine Yes Take by Uni vers (CLARITIN 7-24 mouth ity of LIQUI-GEL) 19:58: daily. [place] 10 mg 14 Medical capsule [place] MULTIVITAMI Yes 1{tbl} Take 1 Tab Univers N ORAL 7-24 by mouth ity of 19:58: daily. [place] [address] Medical [place] loratadine Yes Take by Uni vers (CLARITIN 7-24 mouth ity of LIQUI-GEL) 19:58: daily. [place] 10 mg 14 Medical capsule Branch MULTIVITAMI Yes 1{tbl} Take 1 Tab Univers N ORAL 7-24 by mouth ity of 19:58: daily. [address] Branch loratadine Yes Take by Uni vers (CLARITIN 7-24 mouth ity of LIQUI-GEL) 19:58: daily. [place] 10 mg 14 Medical capsule Branch ondansetron [...] 7-24 by mouth ity of 14:58: daily. [address] loratadine Yes Take by Uni vers (CLARITIN 7-24 mouth ity of LIQUI-GEL) 14:58: daily. [place] 10 mg 14 Medical capsule Branch MULTIVITAMI Yes 1{tbl} Take 1 Tab Univers N ORAL 7-24 by mouth ity of 14:58: daily. [address] loratadine Yes Take by Uni vers (CLARITIN 7-24 mouth ity of LIQUI-GEL) 14:58: daily. [place] 10 mg 14 Medical capsule Branch MULTIVITAMI Yes 1{tbl} Take 1 Tab Univers N ORAL 7-24 by mouth ity of 14:58: daily. [address] loratadine Yes Take by Uni vers (CLARITIN 7-24 mouth ity of LIQUI-GEL) 14:58: daily. [place] 10 mg 14 Medical capsule Branch MULTIVITAMI Yes 1{tbl} Take 1 Tab Univers N ORAL 7-24 by mouth ity of 14:58: daily. [address] loratadine Yes Take by Uni vers [...] 10 mg 00:00: daily. [place] tablet 00 [facility] lisinopril 2015-0 Yes 40mg Take 1 Tab U nivers (PRINIVIL,Z 3-03 by mouth ity of ESTRIL) 40 00:00: daily. [place] mg tablet 00 [facility] Immunizations Ordered Filled Immunization Date Status Comments Sour e Immunization Name Name SARS-COV-2 COVID-19 2021-05-24 Completed Unive rsity of PFIZER VACCINE 00:00:00 [facility] SARS-COV-2 COVID-19 2021-05-24 Completed Unive rsity of PFIZER VACCINE 00:00:00 [facility] SARS-COV-2 COVID-19 2021-05-03 Completed Unive rsity of PFIZER VACCINE 00:00:00 [facility] SARS-COV-2 COVID-19 2021-05-03 Completed Unive rsity of PFIZER VACCINE 00:00:00 [facility] SARS-COV-2 COVID-19 2021-05-03 Completed Unive rsity of PFIZER VACCINE 00:00:00 [facility] Vital Signs Vital Name Observation Time Observation Value Comments Source Systolic blood 2021-11-23 21:30:00 132 mm[Hg] Univer sity of pressure [facility] Diastolic blood 2021-11-23 21:30:00 76 mm[Hg] Unive rsity of pressure [facility] Heart rate 2021-11-23 21:30:00 95 /min [facility] Respiratory rate 2021-11-23 21:30:00 13 /min [facility] 2021-11-23 21:30:00 97 [facility] Arterial blood by [facility] Pulse oximetry [place] Body temperature 2021-11-23 20:15:00 37.56 Radha Univ ersity of [facility] Systolic blood 2021-03-17 03:00:00 117 mm[Hg] Univer sity of pressure [facility] Diastolic blood 2021-03-17 03:00:00 76 mm[Hg] Unive [...] 2021-03-17 00:39:00 23.03 kg/m2 Universi ty of [place] [facility] Systolic blood 2021-03-15 00:14:00 149 mm[Hg] Univer sity of pressure [place] [facility] Diastolic blood 2021-03-15 00:14:00 78 mm[Hg] Unive rsity of pressure [place] [facility] Heart rate 2021-03-15 00:14:00 100 /min Universi ty of [place] [facility] Body temperature 2021-03-15 00:14:00 37.33 Radha Univ ersity of [place] [facility] Respiratory rate 2021-03-15 00:14:00 24 /min Univ ersity of [place] [facility] Body height 2021-03-15 00:14:00 160 cm Universi ty of [place] [facility] Body weight 2021-03-15 00:14:00 58.968 kg Universi ty of [place] [facility] BMI 2021-03-15 00:14:00 23.03 kg/m2 Universi ty of [place] [facility] Oxygen saturation in 2021-03-15 00:14:00 98 /min University of Arterial blood by [place] Medi kwame Pulse oximetry Branch Systolic blood 2021-02-19 18:00:00 131 mm[Hg] Univer sity of pressure [place] [facility] Diastolic blood 2021-02-19 18:00:00 80 mm[Hg] Unive rsity of pressure [place] [facility] Heart rate 2021-02-19 18:00:00 83 /min Universi ty of [place] [facility] Respiratory rate 2021-02-19 18:00:00 18 /min [facility] Oxygen saturation in 2021-02-19 18:00:00 100 /min [facility] Arterial blood by [facility] Pulse oximetry [place] Body temperature 2021-02-19 15:47:00 37 Radha [facility] Body height 2021-02-19 15:47:00 160 cm [facility] Body weight 2021-02-19 15:47:00 58.968 kg [facility] BMI 2021-02-19 15:47:00 23.03 kg/m2 [facility] Procedures Procedure Date / Time Performing Clinician Source Performed URINE DRUG (IMMUNOASSAY) 2021-11-23 21:21:00 Williams Allison [facility] SCREEN W/O REFLEX CT HEAD WO CONTRAST 2021-11-23 20:58:00 Williams Allison [facility] POCT TEST 2021-11-23 20:46:00 Williams Allison [facility] URINALYSIS 2021-11-23 20:43:00 Williams Allison [facility] LIPASE 2021-11-23 20:27:00 Williams Allison [facility] TROPONIN I 2021-11-23 20:27:00 Williams Allison [facility] COMP. METABOLIC PANEL 2021-11-23 20:27:00 [id number] CBC WITH DIFF 2021-11-23 20:27:00 Williams Allison [facility] POCT GLUCOSE (AUTOMATED) 2021-11-23 20:15:00 Doctor Unassigned, [facility] [place] [facility] [place] SARS-COV-2 COVID-19 2021-05-24 14:23:12 Doctor Unassigned, [facility] VACCINE,0.3ML,IM (PFIZER) [place] [facility] SARS-COV-2 COVID-19 2021-05-03 14:59:29 Doctor Unassigned, [facility] VACCINE,0.3ML,IM (PFIZER) [place] Medica l Branch EMERGENCY SERVICES 2021-04-16 05:01:00 Doctor Joe, [facility] AGREEMENTS AND [place] [facility] [place] AUTHORIZATIONS URINALYSIS 2021-03-17 03:09:00 [facility] XR CHEST 1 VW 2021-03-17 01:45:07 [facility] TROPONIN I 2021-03-17 01:35:00 [facility] COMP. METABOLIC PANEL 2021-03-17 01:35:00 Palmer [facility] ([id number]) Medical Branch CBC WITH DIFF 2021-03-17 01:35:00 [facility] N-TERMINAL PRO-BNP 2021-03-17 01:35:00 Palmer [facility] Branch COVID-19 (ID NOW RAPID 2021-03-17 00:58:00 Brian Ray [facility] TESTING) Medical Branch CONSENT/REFUSAL FOR 2021-03-17 00:32:59 Doctor Joe [facility] DIAGNOSIS AND TREATMENT [place] [facility] COVID-19 (ID NOW RAPID 2021-02-19 17:04:00 Anali Patel [facility] TESTING) Medical Branch CT ABDOMEN PELVIS W 2021-02-19 16:41:18 Anali Patel [facility] CONTRAST Medical Branch LIPASE 2021-02-19 15:58:00 Anali Patel [facility] COMP. METABOLIC PANEL 2021-02-19 15:58:00 Anali Patel [facility] ([id number]) Medical Branch CBC WITH DIFF 2021-02-19 15:58:00 Anali Patel [facility] URINALYSIS 2021-02-19 15:58:00 Anali Patel [facility] NOTICE OF PRIVACY 2021-02-19 15:30:46 Doctor Joe, [facility] PRACTICES [place] Medical Branch CONSENT/REFUSAL FOR 2021-02-19 15:30:30 Doctor Unassigned, Mack[place] [facility] [place] [facility] DIAGNOSIS AND TREATMENT [place] Medical Branch Encounters Start End Encounter Admission Attending Care Care Encounter Source Date/Time Date/Time Type Type Clinicians Facility Department ID 2021-05-20 Emergency [facility] [id number] Univers 18:48:04 ity of [facility] 2021-05-20 Emergency [facility] [id number] Univers 12:43:40 ity of [facility] 2021-11-23 2021-11-23 Emergency X STEFANONAYAJENNIFER [facility] ERT [id number] Univers 15:07:00 17:03:00 FOLUSHO ity of [facility] 2021-11-23 2021-11-23 Emergency Sav Rondon [facility] [id number] Univers 15:07:00 17:03:00 Williams Allison F NORMAN [id number]. 10 ity of [place] [id number] [facility] [phone] [facility] 084 Branch 2021-11-21 2021-11-21 Outpatient R [facility] [id number] Univers 09:40:00 09:40:00 [id number] ity of [facility] 2021-11-21 2021-11-21 Outpatient R [facility] [id number] Univers 09:40:00 09:40:00 ity of [facility] 2021-05-24 2021-05-24 Outpatient R [facility] [id number] Univers 09:30:00 09:30:00 [id number] ity of [facility] 2021-05-24 2021-05-24 Outpatient R SHILPA FREDERICK [facility] [id number] Univers 09:30:00 09:30:00 ity of [facility] 2021-05-24 2021-05-24 Imm/Inj Vaccine, Chung Murdocki [facility] ANJELICA FLETCHER [id number] Univers 08:47:51 08:57:51 Visit Shilpa [place] [id number] ity of PEDIATRIC [id number] [facility] [id number] [facility] 225 Branch 2021-05-03 2021-05-03 Outpatient R SHILPA FREDERICK [facility] [id number] Univers 09:40:00 09:59:35 ity of [facility] 2021-05-03 2021-05-03 Imm/Inj Vaccine, Chung Pierson [facility] Anjelica fletcher [id number] Univers 09:17:43 09:59:35 Visit Shilpa [place] [id number] ity of [place] [id number] [place] [facility] [phone] [facility] 225 Branch 2021-05-03 2021-05-03 Outpatient R [facility] [id number] Univers 09:40:00 09:40:00 [id number] ity of [facility] 2021-04-16 2021-04-16 Orders Doctor THEODORE [id number] Univers 00:00:00 00:00:00 Only Unassigned, HOSEA [id number] ity of [place] [facility] [id number] Javier as [phone] [facility] 009 Branch 2021-03-17 2021-03-17 Telephone EWELINA Nava [id number] Univers 00:00:00 00:00:00 Anesuha JC [id number] ity of [facility] [id number] Javier as [id number] [facility] 019 Branch 2021-03-16 2021-03-16 Emergency Palmer [facility] [id number] Univers 20:08:00 23:24:00 Shinta Julio Cesar [id number] i ty of [place] [id number] [place] [phone] [facility] 084 Branch 2021-03-14 2021-03-14 Urgent Lydia Desouza [facility] 1.2.840.114 [id number] Univers 18:59:34 20:19:13 Care Unknown, Attending Health 350.1.13.10 ity of [place] 4.2.7.2.686 Javier as Prem?Blea [phone] [place] [address] [facility] 2021-03-14 2021-03-14 Outpatient R [facility] [id number] Univers 19:00:00 19:00:00 [id number] [facility] 2021-03-14 2021-03-14 Outpatient R UNKNOWN, [facility] [id number] Univers 19:00:00 19:00:00 ATTENDING [facility] 2021-02-19 2021-02-19 [facility] [id number] Univers 10:49:00 14:48:00 Anali Harrell 350.1.13.10 i [place] [id number] [address] 2019-03-09 2019-03-09 [facility] 1.2.840.114 [id number] 00:00:00 00:00:00 Yehuda Harrell 350.1.13.10 [place] 4.2.7.2.686 Professio [id number] [address] 2019-03-09 2019-03-09 [facility] 1.2.840.114 [id number] Univers 00:00:00 00:00:00 Yehuda Harrell 350.1.13.10 ity [facility] 4[place]7.2.[place] [phone] T[place] [address] Results Test Description Test Time Test Comments Results Result Comments Source TROPONIN I 2021-11-23 21:06:40 Test Item Value Reference Range Interpretation Comme nts TROPONIN I (test code = 0.005 ng/mL See_Comment [Au tomated message] The 1221753903) system which ge nerated this result tra [...] biotin. Lab Interpretation Normal (test code = 74496-8) [facility]. METABOLIC PANEL ([id number])2021-11-23 20:55:42 Test Item Value Reference Range Interpretation Comments NA (test code = 137 mmol/L 135-145 2289733097) K (test code = 4.3 mmol/L 3.5-5.0 4740285811) CL (test code = 104 mmol/L 98-108 4764369048) CO2 TOTAL (test code = 22 mmol/L 23-31 L 7031986598) AGAP (test code = 2-16 4128537875) BUN (test code = 15 mg/dL 7-23 8336728879) GLUCOSE (test code = 114 mg/dL 70-110 H 2294715780) CREATININE (test code = 0.68 mg/dL 0.50-1.04 7444233932) TOTAL BILI (test code = 0.5 mg/dL 0.1-1.9 1724995187) CALCIUM (test code = 9.1 mg/dL 8.6-10.6 6628469225) T PROTEIN (test code = 7.3 g/dL 6.3-8.2 6401056480) ALBUMIN (test code = 4.4 g/dL 3.5-5.0 0704205310) ALK PHOS (test code = 243 U/L 34-122 H 1806145212) ALTv (test code = 24 U/L 5-35 1742-6) AST(SGOT) (test code = 30 U/L 13-40 4589779892) eGFR (test code = mL/min/1.73m2 7160313115) LYNDSAY (test code = LYNDSAY) Association of [...] tests). Lab Interpretation Abnormal (test code = 61241-9) [facility] 20:55:22 Test Item Value Reference Range Interpretation Comments LIPASE (test code = 9294223637) 96 U/L 0-220 Lab Interpretation (test code = Normal 40601-4) [facility] [id number] 20:46:00 Test Item Value Reference Range Interpretation Comments POCT PREG (test code = 1605) negative On board controls acceptable with present C Line (test code = 3574) POCT PREG LOT # (test code = 3575) [id number] POCT PREG TEST DATE (test 04/18/2023 code = 3576) Lab Interpretation (test code = Normal 20982-7) [facility] WITH [id number] 20:40:38 Test Item Value Reference Range Interpretation Comments WBC (test code = See_Comment [Automated 2326-2) message] The sy stem which generated this [...] (test code = 53.7 fL 39.0-49.9 H 46529-3) RDW-CV (test code = 17.2 % 12.0-15.5 H 788-0) PLT (test code = See_Comment H [Automated 777-3) message] The sy stem which generated this result transmitted reference range : 166 - 358 10*3/ ?L. The reference r zoe was not used to interpret this result as normal/abnormal . MPV (test code = 8.5 fL 9.5-12.9 L 01822-2) NRBC/100 WBC (test See_Comment [Automat ed code = 6302663535) message] The system which generated this result transmitted reference range : 0.0 - 10.0 /100 WBCs. The refer ence range was not u sed to interpret th is result as normal/abnormal . NRBC x10^3 (test code <0.01 See_Comment [Auto mated = 4805543765) message] The s ystem which generated this result transmitted reference range : 10*3/?L. The reference range was not used to interpret this result as normal/abnormal . GRAN MAT (NEUT) % 53.7 % (test code = 770-8) IMM GRAN % (test code 0.90 % = 6954079684) LYMPH % (test code = 32.6 % 736-9) MONO % (test code = 10.1 % 5905-5) EOS % (test code = 1.5 % 713-8) BASO % (test code = 1.2 % 706-2) GRAN MAT x10^3(ANC) 4.98 10*3/uL 1.88-7.09 (test code = 8499830989) IMM GRAN x10^3 (test 0.08 10*3/uL 0.00-0.06 H code = 2674749650) LYMPH x10^3 (test code 3.02 10*3/uL 1.32-3.29 = 731-0) MONO x10^3 (test code 0.94 10*3/uL 0.33-0.92 H = 742-7) EOS x10^3 (test code = 0.14 10*3/uL 0.03-0.39 711-2) BASO x10^3 (test code 0.11 10*3/uL 0.01-0.07 H = 704-7) Lab Interpretation Abnormal (test code = 62669-8) [facility] (AUTOMATED)2021-11-23 20:17:33 Test Item Value Reference Range Interpretation Comments POCT GLU (test code = 111 mg/dL 70-110 H Notifi ed Provider 4539182623) Lab Interpretation (test Abnormal code = 15875-9) [facility]2021-[facility]-29 03:22:48 Test Item Value Reference Range Interpretation Comments APPEARANCE (test code = Hazy Clear A 2404129477) COLOR (test code = Yellow Yellow 3352472544) PH (test code = 4.8-8.0 4261681853) SP GRAVITY (test code = 1.003-1.030 5392239025) GLU U QUAL (test code = Normal Normal 3800217862) BLOOD (test code = Negative Negative Interfere nce from 3873638188) ascorbic acid m ay cause false neg ative results. KETONES (test code = 5 mg/dL Negative A 8167199710) PROTEIN (test code = Negative Negative 2887-8) UROBILIN (test code = 4.0 mg/dL Normal A 8223620520) BILIRUBIN (test code = Negative Negative 8000785245) NITRITE (test code = Negative Negative 8235374104) LEUK GRUPO (test code = Negative Negative 4342546911) RBC/HPF (test code = See_Comment [Autom ated message] 2530081712) The system whic h generated this result transmitted ref erence range: 0 - 3 HP F. The reference range was not used to int erpret this result as normal/abnormal . WBC/HPF (test code = <1 See_Comment [Autom ated message] 4436257541) The system [employer] generated this result transmitted ref erence range: 0 - 5 HP F. The reference range was not used to int erpret this result as normal/abnormal . BACTERIA (test code = Few Negative A 9588441888) SQ EPITH (test code = HPF 5016751625) Lab Interpretation Abnormal (test code = 17910-1) [facility]2021-[facility]-29 03:22:48 Test Item Value Reference Range Interpretation Comments APPEARANCE (test code = Hazy Clear A 2441912289) COLOR (test code = Yellow Yellow 1983122627) PH (test code = 4.8-8.0 6163526110) SP GRAVITY (test code = 1.003-1.030 1207807152) GLU U QUAL (test code = Normal Normal 8869825346) BLOOD (test code = Negative Negative 6357616417) KETONES (test code = 5 mg/dL Negative A 1066545538) PROTEIN (test code = Negative Negative 2887-8) UROBILIN (test code = 4.0 mg/dL Normal A 4904866148) BILIRUBIN (test code = Negative Negative 5175225830) NITRITE (test code = Negative Negative 8653539855) LEUK GRUPO (test code = Negative Negative 8315660745) RBC/HPF (test code = See_Comment [Autom ated message] 8951799673) The system [employer] generated this result transmit sherice reference range : 0 - 3 HPF. The refe rence range was not u sed to interpret th is result as normal/abnormal . WBC/HPF (test code = <1 See_Comment [Autom ated message] 5114470919) The system [employer] generated this result transmit sherice reference range : 0 - 5 HPF. The refe rence range was not u sed to interpret th is result as normal/abnormal . BACTERIA (test code = Few Negative A 4186518327) SQ EPITH (test code = HPF 5850541244) Lab Interpretation (test Abnormal code = 33412-7) [facility] [id number] 02:45:00 Test Item Value Reference Interpretation Comments Range TROPONIN I (test 0.002 ng/mL See_Comment [Automated code = 3073904125) message] The system which generated this result [...] biotin. Lab Interpretation Normal (test code = 74809-3) [facility] [id number] 02:45:00 Test Item Value Reference Range Interpretation Comments TROPONIN I (test code = 0.002 ng/mL See_Comment [Au tomated 4196713211) message] The sy stem which generated this result transmitted reference range : <=0.034. The reference range was not used to interpret this result as normal/abnormal . LYNDSAY (test code = LYNDSAY) Lab Interpretation Normal (test code = 74974-1) [facility]TERMINAL [id number] 02:41:57 Test Item Value Reference Range Interpretation Comments NT-proBNP (test code 169 pg/mL See_Comment H [Autom ated = 8739989282) message] The system which generated this result transmitted reference range : <=125. The reference range was not used to interpret this result as normal/abnormal . LYNDSAY (test code = LYNDSAY) Biotin has been reported to cause a negative bias, interpret results relative to patient's use of biotin. Lab Interpretation Abnormal (test code = 75769-7) [facility]AL [id number] 02:41:57 Test Item Value Reference Range Interpretation Comments NT-proBNP (test code = 169 pg/mL See_Comment H [Aut omated message] 0992001020) The system [employer] generated this result transmit sherice reference range : <=125. The refe rence range was not u sed to interpret th is result as normal/abnormal . LYNDSAY (test code = LYNDSAY) Lab Interpretation (test Abnormal code = 39021-8) [facility]. METABOLIC PANEL ([id number])2021-03-17 02:09:13 Test Item Value Reference Range Interpretation Comments NA (test code = 137 mmol/L 135-145 7242145650) K (test code = 4.2 mmol/L 3.5-5.0 6123909348) CL (test code = 102 mmol/L 98-108 3365359530) CO2 TOTAL (test code = 25 mmol/L 23-31 9326021418) AGAP (test code = 2-16 9147497811) BUN (test code = 18 mg/dL 7-23 8833463132) GLUCOSE (test code = 144 mg/dL 70-110 H 3930400722) CREATININE (test code = 0.77 mg/dL 0.50-1.04 9832120683) TOTAL BILI (test code = 0.4 mg/dL 0.1-1.6 3236928982) CALCIUM (test code = 8.9 mg/dL 8.6-10.6 7453976327) T PROTEIN (test code = 6.8 g/dL 6.3-8.2 9197389085) ALBUMIN (test code = 3.9 g/dL 3.5-5.0 3071866498) ALK PHOS (test code = 84 U/L 34-122 9061969436) ALTv (test code = 13 U/L 5-35 1742-6) AST(SGOT) (test code = 17 U/L 13-40 5804716526) eGFR (test code = mL/min/1.73m2 3264863139) LYNDSAY (test code = LYNDSAY) Association of [...] tests). Lab Interpretation Abnormal (test code = 09305-6) [facility]. METABOLIC PANEL ([id number])2021-03-17 02:09:13 Test Item Value Reference Range Interpretation Comments NA (test code = 9284243724) 137 mmol/L 135-145 K (test code = 2409140096) 4.2 mmol/L 3.5-5.0 CL (test code = 7795483902) 102 mmol/L 98-108 CO2 TOTAL (test code = 8427272930) 25 mmol/L 23-31 AGAP (test code = 0261360687) 2-16 BUN (test code = 8433421612) 18 mg/dL 7-23 GLUCOSE (test code = 8106102056) 144 mg/dL 70-110 H CREATININE (test code = 0.77 mg/dL 0.50-1.04 9158158305) TOTAL BILI (test code = 0.4 mg/dL 0.1-1.9 8996216646) CALCIUM (test code = 3846705088) 8.9 mg/dL 8.6-10.6 T PROTEIN (test code = 4394783182) 6.8 g/dL 6.3-8.2 ALBUMIN (test code = 4573203152) 3.9 g/dL 3.5-5.0 ALK PHOS (test code = 7393601029) 84 U/L 34-122 ALTv (test code = 1742-6) 13 U/L 5-35 AST(SGOT) (test code = 2674220689) 17 U/L 13-40 eGFR (test code = 0180684221) mL/min/1.73m2 LYNDSAY (test code = LYNDSAY) Lab Interpretation (test code = Abnormal 37952-9) [facility] WITH [id number] 01:56:33 Test Item Value Reference Range Interpretation [...] (test code = 55.5 fL 39.0-49.9 H 80811-3) RDW-CV (test code = 18.9 % 12.0-15.5 H 788-0) PLT (test code = See_Comment H [Automated 777-3) message] The sy stem which generated this result transmitted reference range : 166 - 358 10*3/ ?L. The reference r zoe was not used to interpret this result as normal/abnormal . MPV (test code = 8.2 fL 9.5-12.9 L 79804-4) NRBC/100 WBC (test See_Comment [Automat ed code = 6935527418) message] The system which generated this result transmitted reference range : 0.0 - 10.0 /100 WBCs. The refer ence range was not u sed to interpret th is result as normal/abnormal . NRBC x10^3 (test code <0.01 See_Comment [Auto mated = 0292051493) message] The s ystem which generated this result transmitted reference range : 10*3/?L. The reference range was not used to interpret this result as normal/abnormal . GRAN MAT (NEUT) % 61.7 % (test code = 770-8) IMM GRAN % (test code 0.80 % = 5204503994) LYMPH % (test code = 28.5 % 736-9) MONO % (test code = 6.3 % 5905-5) EOS % (test code = 1.8 % 713-8) BASO % (test code = 0.9 % 706-2) GRAN MAT x10^3(ANC) 7.31 10*3/uL 1.88-7.09 H (test code = 7947784464) IMM GRAN x10^3 (test 0.09 10*3/uL 0.00-0.06 H code = 2908369204) LYMPH x10^3 (test code 3.38 10*3/uL 1.32-3.29 H = 731-0) MONO x10^3 (test code 0.75 10*3/uL 0.33-0.92 = 742-7) EOS x10^3 (test code = 0.21 10*3/uL 0.03-0.39 711-2) BASO x10^3 (test code 0.11 10*3/uL 0.01-0.07 H = 704-7) Lab Interpretation Abnormal (test code = 95076-5) [facility] WITH [id number] 01:56:33 Test Item Value Reference Range Interpretation Comments WBC (test code = See_Comment H [Automated 6890-2) message] The sy stem which generated this [...] (test code = 55.5 fL 39.0-49.9 H 98775-0) RDW-CV (test code = 18.9 % 12.0-15.5 H 788-0) PLT (test code = See_Comment H [Automated 777-3) message] The sy stem which generated this result transmitted reference range : 166 - 358 10*3/ ?L. The reference r zoe was not used to interpret this result as normal/abnormal . MPV (test code = 8.2 fL 9.5-12.9 L 81852-4) NRBC/100 WBC (test See_Comment [Automat ed code = 3282625189) message] The system which generated this result transmitted reference range : 0.0 - 10.0 /100 WBCs. The refer ence range was not u sed to interpret th is result as normal/abnormal . NRBC x10^3 (test code <0.01 See_Comment [Auto mated = 2838768033) message] The s ystem which generated this result transmitted reference range : 10*3/?L. The reference range was not used to interpret this result as normal/abnormal . GRAN MAT (NEUT) % 61.7 % (test code = 770-8) IMM GRAN % (test code 0.80 % = 8843746214) LYMPH % (test code = 28.5 % 736-9) MONO % (test code = 6.3 % 5905-5) EOS % (test code = 1.8 % 713-8) BASO % (test code = 0.9 % 706-2) GRAN MAT x10^3(ANC) 7.31 10*3/uL 1.88-7.09 H (test code = 2837907419) IMM GRAN x10^3 (test 0.09 10*3/uL 0.00-0.06 H code = 3268597904) LYMPH x10^3 (test code 3.38 10*3/uL 1.32-3.29 H = 731-0) MONO x10^3 (test code 0.75 10*3/uL 0.33-0.92 = 742-7) EOS x10^3 (test code = 0.21 10*3/uL 0.03-0.39 711-2) BASO x10^3 (test code 0.11 10*3/uL 0.01-0.07 H = 704-7) Lab Interpretation Abnormal (test code = 14476-8) [facility]-19 (ID NOW RAPID TESTING)2021-03-17 01:38:12 Test Item Value Reference Range Interpretation Comments SARS-CoV-2 Rapid ID NOW Not Detected Not Detected (test code = 11194-6) LYNDSAY (test code = LYNDSAY) ID NOW COVID-19 Assay is an isothermal nucleic acid amplification test intended for the qualitative detection of nucleic acid from SARS-CoV-2 viral RNA in nasopharyngeal (PROGRAM ARRANGER) specimens. It is used under Emergency Use [...] indicated. Lab Interpretation Normal (test code = 11306-3) [facility]-19 (ID NOW RAPID TESTING)2021-03-17 01:38:12 Test Item Value Reference Range Interpretation Comments SARS-CoV-2 Rapid ID NOW (test Not Detected Not Detected code = 92256-4) LYNDSAY (test code = LYNDSAY) Lab Interpretation (test code = Normal 00657-0) [facility] (ID NOW RAPID TESTING)2021-02-19 17:42:45 Test Item Value Reference Range Interpretation Comments SARS-CoV-2 Rapid ID NOW Not Detected Not Detected (test code = 65225-9) LYNDSAY (test code = LYNDSAY) ID NOW COVID-19 Assay is an isothermal nucleic acid amplification test intended for the qualitative detection of nucleic acid from SARS-CoV-2 viral RNA in nasopharyngeal (PROGRAM ARRANGER) specimens. It is used under Emergency Use [...] indicated. Lab Interpretation Normal (test code = 70303-8) [facility] CenterCT ABDOMEN PELVIS W [id number] 17:24:55Thickening of the gastric antrum and duodenal bulb could be fromunderdistention, the differential would include sequela of peptic ulcerdisease. No findings of ulcer perforation. Otherwise, no acute intra- abdominal or pelvic abnormality. Stable thickening and nodularity of the left adrenal gland. RL: 8722 Patient name: EUSEBIA TURNREB: 1970 51 years EXAMINATION: CT ABDOMEN PELVIS [...] 12:26 PM CDT [facility]: [facility] 1970 51 [facility] EXAM[facility]: CT ABDOMEN PELVIS [...] nodularity of the left adrenal gland.RL: 8722 [facility] [id number] 17:03:40 Test Item Value Reference Range Interpretation Comments APPEARANCE (test code = Hazy Clear A 2599777730) COLOR (test code = Mabel Yellow A 2325660265) PH (test code = 4.8-8.0 7962306253) SP GRAVITY (test code = 1.003-1.030 H 1315042500) GLU U QUAL (test code = Normal Normal 3151011419) BLOOD (test code = Negative Negative 5782509852) KETONES (test code = 5 mg/dL Negative A 3912684582) PROTEIN (test code = 30 mg/dL Negative A 2887-8) UROBILIN (test code = 4.0 mg/dL Normal A 3332624860) BILIRUBIN (test code = 4 mg/dL Negative A 5227940405) NITRITE (test code = Negative Negative 2028998294) LEUK GRUPO (test code = Negative Negative 8288010031) RBC/HPF (test code = See_Comment H [Autom ated message] 6745015390) The system [employer] generated this result transmit sherice reference range : 0 - 3 HPF. The refe rence range was not u sed to interpret th is result as normal/abnormal . WBC/HPF (test code = See_Comment H [Autom ated message] 0535029097) The system [employer] generated this result transmit sherice reference range : 0 - 5 HPF. The refe rence range was not u sed to interpret th is result as normal/abnormal . BACTERIA (test code = Few Negative A 8960225084) MUCOUS (test code = Moderate Negative LPF A 7580331586) SQ EPITH (test code = HPF 9216257368) CA OXALATE (test code = See_Comment H [Au tomated message] 0581842561) The system [employer] generated this result transmit sherice reference range : <=1 HPF. The refere nce range was not u sed to interpret th is result as normal/abnormal . Ictotest (test code = Negative 6354792918) Lab Interpretation (test Abnormal code = 74477-2) [facility] CenterComplete Metabolic [id number] 16:34:55 Test Item Value Reference Range Interpretation Comments NA (test code = 139 mmol/L 135-145 7426043345) K (test code = 4.3 mmol/L 3.5-5.0 4711628275) CL (test code = 105 mmol/L 98-108 5576626487) CO2 TOTAL (test code 26 mmol/L 23-31 = 4564918497) AGAP (test code = 2-16 8659720204) BUN (test code = 11 mg/dL 7-23 4426075299) GLUCOSE (test code = 95 mg/dL 70-110 5443339326) CREATININE (test code 0.70 mg/dL 0.50-1.04 = 5780006518) TOTAL BILI (test code 0.6 mg/dL 0.1-1.1 = 0698046415) CALCIUM (test code = 8.9 mg/dL 8.6-10.6 0781084900) T PROTEIN (test code 7.7 g/dL 6.3-8.2 = 1815281060) ALBUMIN (test code = 4.1 g/dL 3.5-5.0 5997174355) ALK PHOS (test code = 79 U/L 34-122 3318535474) ALTv (test code = 10 U/L 5-35 1742-6) AST(SGOT) (test code 22 U/L 13-40 = 7194012799) eGFR (test code = mL/min/1.73m2 6672866723) LYNDSAY (test code = LYNDSAY) Association of [...] or urine or abnormalities in imaging tests). [facility] CenterLipase, [id number] 16:34:14 Test Item Value Reference Range Interpretation Comments LIPASE (test code = 6782745795) 45 U/L 0-220 Lab Interpretation (test code = Normal 11756-4) [facility] CenterCB with [id number] 16:21:12 Test Item Value Reference Range Interpretation Comments WBC (test code = See_Comment [Automated 6178-2) message] The sy stem which generated this result transmitted reference range : 4.30 - 11.10 10*3/?L. The reference range was not used to interpret this result as normal/abnormal . RBC (test code = See_Comment [Automated 119-6) message] The sy stem which generated this [...] (test code = 54.4 fL 39.0-49.9 H 87008-9) RDW-CV (test code = 18.3 % 12.0-15.5 H 788-0) PLT (test code = See_Comment H [Automated 777-3) message] The sy stem which generated this result transmitted reference range : 166 - 358 10*3/ ?L. The reference r zoe was not used to interpret this result as normal/abnormal . MPV (test code = 8.5 fL 9.5-12.9 L 21090-0) NRBC/100 WBC (test See_Comment [Automat ed code = 9295164182) message] The system which generated this result transmitted reference range : 0.0 - 10.0 /100 WBCs. The refer ence range was not u sed to interpret th is result as normal/abnormal . NRBC x10^3 (test code <0.01 See_Comment [Auto mated = 9074004763) message] The s ystem which generated this result transmitted reference range : 10*3/?L. The reference range was not used to interpret this result as normal/abnormal . GRAN MAT (NEUT) % 78.3 % (test code = 770-8) IMM GRAN % (test code 0.40 % = 8109356899) LYMPH % (test code = 15.4 % 736-9) MONO % (test code = 4.8 % 5905-5) EOS % (test code = 0.1 % 713-8) BASO % (test code = 1.0 % 706-2) GRAN MAT x10^3(ANC) 7.15 10*3/uL 1.88-7.09 H (test code = 1046455803) IMM GRAN x10^3 (test 0.04 10*3/uL 0.00-0.06 code = 7820615478) LYMPH x10^3 (test code 1.41 10*3/uL 1.32-3.29 = 731-0) MONO x10^3 (test code 0.44 10*3/uL 0.33-0.92 = 742-7) EOS x10^3 (test code = <0.03 0.03-0.39 L 711-2) BASO x10^3 (test code 0.09 10*3/uL 0.01-0.07 H = 704-7) Lab Interpretation Abnormal (test code = 62894-6) [facility]"
[2021-12-13] MEDS ORDERED: LEVETIRACETAM 500 MG/5 ML VIAL IV ONE (13:41)
[2021-12-13] MEDS ORDERED: NA CHLORIDE 0.9% 100 ML ONE (13:42)
[2021-12-13 14:16] LABS: Hematocrit 35.7 % (36.0-45.0); MPV 6.3 fL (7.6-11.3); RBC Red Blood Cell Count 4.22 M/uL (3.86-4.86)
[2021-12-13] MEDS ORDERED: MORPHINE 4 MG/ML SYR ONE (14:18)
[2021-12-13] MEDS ORDERED: ONDANSETRON 4 MG/2 ML VIAL ONE (14:18)
[2021-12-13 14:24] LABS: Potassium 4.2 mmol/L (3.5-5.1)
--- NOTE | 2021-12-13 14:34 | RAD REPORT ---
EXAM DESCRIPTION: RAD - Chest Single View - 12/13/2021 2:19 pm CLINICAL HISTORY: right sided weakness COMPARISON: Chest Single View dated 12/12/2021; Chest Single View dated 12/09/2021; Chest Single View dated 11/24/2021; Chest Single View dated 11/13/2021 FINDINGS: Lines: None. Lungs: No evidence of edema or pneumonia. Pleural: No significant pleural effusions or pneumothorax. Cardiac: The heart size is within normal limits. Bones: No acute fractures. Other: IMPRESSION: No acute cardiopulmonary disease.
[2021-12-13 14:47] LABS: Protime INR 1.03
--- NOTE | 2021-12-13 15:11 | RAD REPORT ---
EXAM DESCRIPTION: CT - Head angio - 12/13/2021 2:57 pm CLINICAL HISTORY: Neuro deficit, acute, stroke suspected COMPARISON: Ct Stroke Brain Wo Cont dated 12/13/2021; Head Brain Wo Cont dated 12/11/2021; Neck Angio dated 12/13/2021 TECHNIQUE: CT angiography of the head was performed with MIPs. All CT scans are performed using dose optimization technique as appropriate and may include automated exposure control or mA/KV adjustment according to patient size. FINDINGS: Anterior circulation: No aneurysm or large vessel occlusion. No hemodynamically significant stenosis. No arteriovenous malf ormation identified. Bilateral ICA calcifications. Posterior circulation: No aneurysm or large vessel occlusion. No hemodynamically significant stenosis. No arteriovenous malf ormation identified. IMPRESSION: No significant flow abnormality is detected.
--- NOTE | 2021-12-13 15:13 | RAD REPORT ---
EXAM DESCRIPTION: CT - Neck Angio - 12/13/2021 2:57 pm CLINICAL HISTORY: Neuro deficit, acute, stroke suspected COMPARISON: Head C Spine Mpr Wo Con dated 08/28/2021; Head C Spine Mpr Wo Con dated 04/05/2021; Neck An molly dated 08/06/2020; Head C Spine Mpr Wo Con dated 03/23/2019 TECHNIQUE: CT angiography of the neck vessels was performed with MIPs. All CT scans are performed using dose optimization technique as appropriate and may include automated exposure control or mA/KV adjustment according to patient size. FINDINGS: A left aortic arch is identified with normal three vessel configuration of the great vesse ls. No significant flow abnormality is seen of the common carotid bilaterally. Mild less than 50% stenosi s is present at the left proximal ICA. No significant stenosis is identified involving the cervical segments of both internal carotid arteri es. Normal flow is seen within both vertebral arteries. ACDF in the cervical spine. IMPRESSION: No significant flow abnormality of the neck vessels is identified.
--- NOTE | 2021-12-13 15:13 | RAD REPORT ---
EXAM DESCRIPTION: CT - Ct Stroke Brain Wo Cont - 12/13/2021 2:57 pm CLINICAL HISTORY: Neuro deficit, acute, stroke suspected COMPARISON: Head Brain Wo Cont dated 12/11/2021; Head angio dated 12/10/2021 TECHNIQUE: All CT scans are performed using dose optimization technique as appropriate and may inclu de automated exposure control or mA/KV adjustment according to patient size. FINDINGS: No intracranial hemorrhage, hydrocephalus or extra-axial fluid collection.No areas of brai n edema or evidence of midline shift. The paranasal sinuses and mastoids are clear. The calvarium is intact. IMPRESSION: No acute intracranial abnormality.
--- NOTE | 2021-12-13 15:35 | EDPHYS ---
Physician Documentation [facility] Name: Heather Coon Age: 51 yrs Sex: Female : 1970 Arrival Date: 12/13/2021 Time: 13:13 Bed 4 Private MD: ED Physician Jones Parham HPI: 12/13 15:08 This 51 yrs old Female presents to ER via Wheelchair with complaints of Numbness Of rn Arm, weakness. 15:09 The patient presents to the emergency department with weakness of the right upper rn extremity, right lower extremity, paresthesias of the right lower extremity, right upper extremity. Onset: The symptoms/episode began/occurred yesterday. Associated signs and symptoms: Pertinent positives: headache, seizure, Pertinent negatives: fever, double vision, visual field changes, loss of vision. Severity of symptoms: At their worst the symptoms were moderate in the emergency department the symptoms are unchanged. The patient has not experienced similar symptoms in the past. The patient has been recently been admitted at [facility]. Pt recently admitted for chest pain, had cardiac cath, came out of case with possible seizure vs CVA. Given TNK yesterday, symptoms improved and left AMA. Pt states symptoms did not resolve, but upon waking up today at 0600, symptoms worsened, now cannot walk, weakness and numbness worse on right side. Reports unable to take seizure medication today because of vomiting, and thinks had a seizure at home. Has hx of seizures. . Historical: - Allergies: 13:15 fluoxetine; iw 13:15 Green Tea; iw - PMHx: 13:15 Anxiety; Bipolar disorder; Cancer-Cervical; Chronic pain; Depression; Diverticulitis; iw Herniated Back Disc; Hypertension; intestinal mass; Myocardial infarction; pt reports hx of seizures; Spastic Muscles; stroke; - PSHx: 13:15 Cholecystectomy; cervical fusion; Tonsillectomy; iw - Family history:: not pertinent. - Hospitalizations: : The patient was recently seen at [facility]. ROS: 15:11 Constitutional: Negative for fever, chills, and weight loss, Eyes: Negative for injury, rn pain, redness, and discharge, ENT: Negative for injury, pain, and discharge, Neck: Negative for injury, pain, and swelling, Cardiovascular: Negative for chest pain, palpitations, and edema, Respiratory: Negative for shortness of breath, cough, wheezing, and pleuritic chest pain, Abdomen/GI: Negative for abdominal pain, nausea, vomiting, diarrhea, and constipation, Back: Negative for injury and pain, MS/Extremity: Negative for injury and deformity, Skin: Negative for injury, rash, and discoloration, Neuro: Negative for seizure Exam: 15:11 Constitutional: This is a well developed, well nourished patient who is awake, rn somnolent Head/Face: Normocephalic, atraumatic. Eyes: Periorbital areas with no swelling, redness, or edema. Cardiovascular: Regular rate and rhythm. No pulse deficits. Respiratory: No increased work of breathing, no retractions or nasal flaring. Abdomen/GI: Soft, non-tender Skin: Warm, dry MS/ Extremity: Pulses equal, no cyanosis. Neuro: Awake and alert, GCS 15, oriented to person, place, time, and situation. Cranial nerves II-XII grossly intact. Motor strength 4-/5 RUE with drift, RLE 4/5 with drift. Decreased sensation RUE/RLE to soft touch and painful stimuli. Vital Signs: 13:13 BP 144 / 94; Pulse 97; Resp 16; Temp 98.2; Pulse Ox 100% on R/A; iw 14:05 BP 114 / 95; Pulse 93; Resp 14; Pulse Ox 99% on R/A; vg1 15:00 BP 133 / 86; Pulse 84; Resp 15; Pulse Ox 98% on R/A; vg1 15:30 BP 147 / 63; Pulse 89; Resp 16; Pulse Ox 99% on R/A; vg1 16:00 BP 129 / 93; Pulse 90; Resp 19; Pulse Ox 98% on R/A; vg1 17:00 BP 141 / 92; Pulse 88; Resp 20; Pulse Ox 96% on R/A; vg1 MDM: 13:19 Patient medically screened. rn 14:00 ED course: Pt given TNKase yesterday and left AMA from hospital.. rn 15:30 Data reviewed: vital signs, nurses notes, lab test result(s), EKG, radiologic studies, rn CT scan, and as a result, I will admit patient. Counseling: I had a detailed discussion with the patient and/or guardian regarding: the historical points, exam findings, and any diagnostic results supporting the discharge/admit diagnosis, lab results, radiology results, the need for further work-up and treatment in the hospital. Response to treatment: the patient's symptoms have mildly improved after treatment, and as a result, I will admit patient. Admission orders: after a detailed discussion of the patient's condition and case, the admit orders are written by me. ED course: Consulted with Dr. Ireland, recommends admit given worsening neurological symptoms. Recommends keppra 500mg BID, MRI, folic acid, aspirin. . 12/13 13:30 Order name: CBC with Diff; Complete Time: 15:04 12/13 13:30 Order name: Basic Metabolic Panel; Complete Time: 15:12/13 13:30 Order name: Protime (+inr); Complete Time: 15:12/13 13:30 Order name: Ptt, Activated; Complete Time: 15:12/13 13:30 Order name: CT Stroke Brain w/o Contrast; Complete Time: 15:12/13 15:46 Order name: SARS-COV-2 RT PCR (Document "Date of Onset" if Symptomatic) 12/13 13:30 Order name: Stroke CXR 1 View; Complete Time: 15:12/13 13:30 Order name: Head Angio CT; Complete Time: 15:12/13 13:30 Order name: Neck Angio CT; Complete Time: 15:12/13 13:30 Order name: IV Start; Complete Time: 14:12/13 13:30 Order name: EKG; Complete Time: 13:12/13 13:30 Order name: Accucheck; Complete Time: 14:12/13 13:30 Order name: Cardiac monitoring; Complete Time: 13:56 12/13 13:30 Order name: EKG - Nurse/Tech; Complete Time: 13:12/13 13:30 Order name: Labs collected and sent; Complete Time: 14:12/13 13:30 Order name: NPO; Complete Time: 13:33 12/13 13:30 Order name: O2 Per Protocol; Complete Time: 13:12/13 13:30 Order name: O2 Sat Monitoring; Complete Time: 13:12/13 13:30 Order name: Stroke Swallow Screen; Complete Time: 16:07 rn 12/13 16:21 Order name: CONS Physician Consult EDMS Administered Medications: 14:04 Drug: Keppra (levETIRAcetam) 1000 mg Route: IV; Rate: calculated rate; Site: left wrist;vg1 14:15 Follow up: IV Status: Completed infusion; IV Intake: 100ml vg1 14:18 Drug: Zofran (Ondansetron) 4 mg Route: IVP; Site: left wrist; vg1 16:07 Follow up: Response: No adverse reaction; Marked relief of symptoms vg1 14:20 Drug: morphine 4 mg Route: IVP; Infused Over: 4 mins; Site: left wrist; vg1 16:07 Follow up: Response: No adverse reaction; No change in condition vg1 16:06 Drug: Aspirin 325 mg Route: PO; vg1 17:01 Follow up: Response: No adverse reaction vg1 16:06 Drug: foLIC Acid 1 mg Route: IVPB; Site: left wrist; vg1 17:02 Follow up: Response: No adverse reaction; IV Status: Completed infusion vg1 17:22 Drug: Ativan (LORazepam) 0.5 mg Route: IVP; Site: left wrist; vg1 19:21 Follow up: Response: No adverse reaction; Marked relief of symptoms vg1 Disposition Summary: 12/13/21 15:33 Hospitalization Ordered Hospitalization Status: Inpatient Admission rn Provider: Randy Parham rn Location: Telemetry/MedSurg (Inpatient) rn Condition: Stable rn Problem: new rn Symptoms: have worsened rn Bed/Room Type: Standard rn Room Assignment: 225(12/13/21 20:07) cg Diagnosis - Cerebral infarction, unspecified rn - Weakness rn - Paresthesia of skin rn - Epileptic seizures related to external causes, not intractable, without status rn epilepticus Forms: - Medication Reconciliation Form rn - SBAR form rn Signatures: Dispatcher [employer] EDLorena Bustamante RN RN iw Nieto, Roman, MD MD rn Garcia, Cindy, RN RN cg Garcia, Victoria, RN RN vg1 Dustin Paige PA PA ej Corrections: (The following items were deleted from the chart) 20: 15:33 rn cg
--- NOTE | 2021-12-13 15:35 | ER ---
Nurse's Notes [facility] Name: Heather Coon Age: 51 yrs Sex: Female : 1970 Arrival Date: 12/13/2021 Time: 13:13 Bed 4 Private MD: Diagnosis: Cerebral infarction, unspecified;Weakness;Paresthesia of skin;Epileptic seizures related to external causes, not intractable, without status epilepticus Presentation: 12/13 13:13 Chief complaint: Patient states: was d/c yesterday , had heart cath done, had right iw sided numbness after surgery, feeling came back and she was d/c home. was told she had a small stroke, today at 0630 started to feel numbness in right arm and nausea/vomiting, pt had seizure like activity upon arrival to ER , jerking of all extremities, able to answer question immediately after jerking stopped. Coronavirus screen: At this time, the client does not indicate any symptoms associated with coronavirus-19. Ebola Screen: Patient negative for fever greater than or equal to 101.5 degrees Fahrenheit, and additional compatible Ebola Virus Disease symptoms Patient denies exposure to infectious person. Patient denies travel to an Ebola-affected area in the 21 days before illness onset. No symptoms or risks identified at this time. Initial Sepsis Screen: Does the patient meet any 2 criteria? No. Patient's initial sepsis screen is negative. Does the patient have a suspected source of infection? No. Patient's initial sepsis screen is negative. Risk Assessment: Do you want to hurt yourself or someone else? Patient reports no desire to harm self or others. Onset of symptoms was December 13, 2021. 13:13 Method Of Arrival: Wheelchair iw 13:13 Acuity: ANDER 2 iw Historical: - Allergies: 13:15 fluoxetine; iw 13:15 Green Tea; iw - PMHx: 13:15 Anxiety; Bipolar disorder; Cancer-Cervical; Chronic pain; Depression; Diverticulitis; iw Herniated Back Disc; Hypertension; intestinal mass; Myocardial infarction; pt reports hx of seizures; Spastic Muscles; stroke; - PSHx: 13:15 Cholecystectomy; cervical fusion; Tonsillectomy; iw - Family history:: not pertinent. - Hospitalizations: : The patient was recently seen at [facility]. Screenin:20 Abuse screen: Denies threats or abuse. Nutritional screening: No deficits noted. vg1 Tuberculosis screening: No symptoms or risk factors identified. Fall Risk No fall in past 12 months (0 pts). No secondary diagnosis (0 pts). IV access (20 points). Ambulatory Aid- None/Bed Rest/Nurse Assist (0 pts). Gait- Normal/Bed Rest/Wheelchair (0 pts) Mental Status- Oriented to own ability (0 pts). Total Costello Fall Scale indicates No Risk (0-24 pts). Assessment: 13:20 General: Appears in no apparent distress. uncomfortable, Behavior is calm, cooperative. vg1 Pain: Complains of pain in generalize body Pain currently is 8 out of 10 on a pain scale. Pain began today Noted to be grimacing. Neuro: Davis Agitation-Sedation Scale (RASS): 0 - Alert and Calm Level of Consciousness is awake, alert, obeys commands, Oriented to person, place, time, situation, Bottom Scrubber are weak on right Weakness in right arm(s) Speech is normal, Facial symmetry appears normal. Cardiovascular: Patient's skin is warm and dry. Respiratory: Airway is patent Respiratory effort is even, unlabored. GI: Reports nausea, vomiting. : No signs and/or symptoms were reported regarding the genitourinary system. EENT: No signs and/or symptoms were reported regarding the EENT system. Derm: Skin is intact, is healthy with good turgor. Musculoskeletal: Capillary refill < 3 seconds, in bilateral fingers. 14:25 Reassessment: Patient appears in no apparent distress at this time. No changes from vg1 previously documented assessment. Patient and/or family updated on plan of care and expected duration. Pain level reassessed. Patient is alert, oriented x 3, equal unlabored respirations, skin warm/dry/pink. 16:07 Reassessment: Patient appears in no apparent distress at this time. Patient and/or vg1 family updated on plan of care and expected duration. Pain level reassessed. Patient is alert, oriented x 3, equal unlabored respirations, skin warm/dry/pink. Pt appears to be upset and crying; stated "i think im having a panic attack" provider notified. 17:25 Reassessment: Patient appears in no apparent distress at this time. Patient and/or vg1 family updated on plan of care and expected duration. Pain level reassessed. Patient is alert, oriented x 3, equal unlabored respirations, skin warm/dry/pink. 18:20 Reassessment: Patient appears in no apparent distress at this time. Pt resting with vg1 eyes closed. Vital Signs: 13:13 BP 144 / 94; Pulse 97; Resp 16; Temp 98.2; Pulse Ox 100% on R/A; iw 14:05 BP 114 / 95; Pulse 93; Resp 14; Pulse Ox 99% on R/A; vg1 15:00 BP 133 / 86; Pulse 84; Resp 15; Pulse Ox 98% on R/A; vg1 15:30 BP 147 / 63; Pulse 89; Resp 16; Pulse Ox 99% on R/A; vg1 16:00 BP 129 / 93; Pulse 90; Resp 19; Pulse Ox 98% on R/A; vg1 17:00 BP 141 / 92; Pulse 88; Resp 20; Pulse Ox 96% on R/A; vg1 ED Course: 13:13 Patient arrived in ED. iw 13:15 Triage completed. iw 13:18 Ewelina Vitale, RN is Primary Nurse. vg1 13:19 Jones Parham MD is Attending Physician. rn 13:20 Client placed on continuous cardiac and pulse oximetry monitoring. NIBP monitoring vg1 applied. fine arts chair on. 13:20 No provider procedures requiring assistance completed. vg1 13:22 Patient has correct armband on for positive identification. Bed in low position. Call mb7 light in reach. Side rails up X 1. Seizure precautions initiated. Door closed. Noise minimized. Warm blanket given. 14:04 Arm band placed on. vg1 14:04 Inserted saline lock: 22 gauge in left wrist, using aseptic technique. Blood collected. tp1 14:21 Stroke CXR 1 View In Process Unspecified. EDMS 14:59 CT Stroke Brain w/o Contrast In Process Unspecified. EDMS 14:[address] In Process Unspecified. EDMS 14:[address] In Process Unspecified. EDMS 15:32 Randy Parham MD is Hospitalizing Provider. rn 19:25 Primary Nurse role handed off by Ewelina Vitale, RN mw2 19:57 William Rubio, BETH is Primary Nurse. ll3 20:53 Patient admitted, IV remains in place. ll3 Administered Medications: 14:04 Drug: Keppra (levETIRAcetam) 1000 mg Route: IV; Rate: calculated rate; Site: left wrist;vg1 14:15 Follow up: IV Status: Completed infusion; IV Intake: 100ml vg1 14:18 Drug: Zofran (Ondansetron) 4 mg Route: IVP; Site: left wrist; vg1 16:07 Follow up: Response: No adverse reaction; Marked relief of symptoms vg1 14:20 Drug: morphine 4 mg Route: IVP; Infused Over: 4 mins; Site: left wrist; vg1 16:07 Follow up: Response: No adverse reaction; No change in condition vg1 16:06 Drug: Aspirin 325 mg Route: PO; vg1 17:01 Follow up: Response: No adverse reaction vg1 16:06 Drug: foLIC Acid 1 mg Route: IVPB; Site: left wrist; vg1 17:02 Follow up: Response: No adverse reaction; IV Status: Completed infusion vg1 17:22 Drug: Ativan (LORazepam) 0.5 mg Route: IVP; Site: left wrist; vg1 19:21 Follow up: Response: No adverse reaction; Marked relief of symptoms vg1 Medication: 13:20 VIS not applicable for this client. vg1 Intake: 14:15 IV: 100ml; Total: 100ml. vg1 Outcome: 15:33 Decision to Hospitalize by Provider. rn 20:53 Admitted to Med/surg accompanied by nurse, via stretcher, room 225, with chart, Report ll3 called to Receiving RN 20:53 Condition: stable 20:53 Discharge instructions given to patient, family, Instructed on the need for admit, Demonstrated understanding of instructions. 21:24 Patient left the ED. ds4 Signatures: Dispatcher [employer] EDMS Lorena Vargas RN RN iw Nieto, Roman, MD MD rn Swanson, Donovan ds4 Marlyn Marrero2 Ewelina Vitale RN RN vg1 William Rubio RN RN ll3 Monik Maxwell tp1 Shy Gonzalez 7
[2021-12-13] MEDS ORDERED: ASPIRIN EC 325 MG TABLET PO ONE (16:04)
[2021-12-13] MEDS ORDERED: FOLIC ACID 5 MG/ML VIAL ONE (16:06)
--- NOTE | 2021-12-13 16:38 | P.HP ---
Certification for Inpatient Patient admitted to: Observation With expected LOS: <2 Midnights Patient will require the following post-hospital care: None Practitioner: I am a practitioner with admitting privileges, knowledge of patient current condition, hospital course, and medical plan of care. Services: Services provided to patient in accordance with Admission requirements found in Title 42 Section 412.3 of the Code of Federal Regulations Patient History Date of Service: 12/13/21 Reason for admission: right sided weakness History of Present Illness: Ms. Coon is a 51 yo F with history of CAD, HTN, epilepsy, and cocaine use who presents to ED with right sided numbness, weakness, and paresthesias. She was initially admitted on 12/09 for chest pain and underwent cardiac cath with no significant stenosis on 12/10. After the procedure, patient had 2 seizure episodes which were abated with Valium. Patient was then noted to have R sided weakness and received TNK. Deficits gradually improved and MRI revealed no acute findings. Patient left AMA yesterday and returns today for worsening symptoms in right upper and lower extremities. She is unable to walk due to the weakness. She reports she has been unable to take her seizure medication due to nausea and vomiting and believes she had a seizure at home. Patient is extremely anxious, and also reports right groin pain. Allergies Green tea Allergy (Unknown, Uncoded 06/08/20 05:35) seizures Home Medications: Fluoxetine HCl [Prozac] 1 tab PO DAILY 12/09/21 Levetiracetam [Keppra] 500 tab PO BID 12/09/21 clonazePAM [Klonopin] 1 tab PO BID 12/09/21 Aspirin [Aspirin EC 81 MG] 81 mg PO DAILY 30 Days #30 tablet. 12/12/21 Atorvastatin Calcium [Lipitor] 40 mg PO BEDTIME 30 Days #30 tab 12/12/21 Clopidogrel Bisulfate [Plavix*] 75 mg PO DAILY 30 Days #30 tablet 12/12/21 Folic Acid 1 mg PO DAILY 30 Days #30 tablet 12/12/21 levETIRAcetam [Keppra*] 1,000 mg PO DAILY tab 12/12/21 levETIRAcetam [Keppra*] 1,500 mg PO BEDTIME tab 12/12/21 - Past Medical/Surgical History Diabetic: No -: COPD -: Hypertension -: migraines -: Depression with anxiety -: Pancreatitis -: Coronary artery disease-prior myocardial infarction -: Diverticulitis -: Seizure disorder -: Herniated back disc -: Diverticulitis -: Herniated back disc -: history of seizures -: 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 -: cholecystectomy -: 5 hand surgeries -: tonsilectomy Psychosocial/ Personal History: Lives at home with her boyfriend - Family History Mother -: Heart disease, Hypertension, GI disease, Diabetes, Liver disease, Kidney disease - Social History Smoking Status: Unknown if ever smoked Alcohol use: Yes CD- Drugs: Yes Caffeine use: Yes Place of Residence: Home Review of Systems General: Weakness Eyes: Unremarkable ENT: Unremarkable Respiratory: Unremarkable Cardiovascular: Unremarkable Gastrointestinal: Nausea, Vomiting Genitourinary: Unremarkable Musculoskeletal: Unremarkable Neurological: Weakness, Numbness, Seizures, As per HPI Lymphatics: Unremarkable Physical Examination - Physical Exam General: Alert, In no apparent distress HEENT: Atraumatic, Normocephalic Respiratory: Clear to auscultation bilaterally, Normal air movement Cardiovascular: Normal pulses, Regular rate/rhythm Gastrointestinal: Normal bowel sounds, Soft and benign Musculoskeletal: No clubbing, No swelling Integumentary: No rashes, No breakdown Neurological: Normal speech, Other (weakness and numbness in right upper extremity, decreased AMERICO, abnormal toddler nanny ), Abnormal strength, Abnormal sensation, Abnormal affect (anxious) Lymphatics: No axilla or inguinal lymphadenopathy - Studies Laboratory Data (last 24 hrs) 12/13/21 14:00: PT 11.3, INR 1.03, APTT 32.9 12/13/21 14:00: Sodium 138, Potassium 4.2, BUN 10, Creatinine 0.73, Glucose 93 12/13/21 14:00: WBC 9.6 D, Hgb 11.5 L, Hct 35.7 L, Plt Count 459 H Assessment and Plan - Plan Assessment R-sided weakness and numbness, suspect acute CVA vs seizure Hypertension COPD Anxiety and depression Plan R-sided weakness and numbness, suspect acute CVA vs seizure - neurology consulted - MRI Brain pending - continue keppra - continue aspirin, folic acid - PT consulted Hypertension - reconcile and continue home medications COPD - reconcile and continue home medications Anxiety and depression - resume home medications DVT ppx: lovenox Code status: full Discharge Plan: Home Plan to discharge in: 24 Hours - Advance Directives Does patient have a Living Will: No Does patient have a Durable POA for Healthcare: No - Code Status/Comfort Care Code Status Assessed: Yes (full code ) Critical Care: No Time Spent Managing Pts Care (In Minutes): 70
[2021-12-13] MEDS ORDERED: IPRATROPIUM BROM 0.5MG/2.5ML NEB PRN (17:02)
[2021-12-13] MEDS ORDERED: ACETAMINOPHEN 500 MG TAB PO PRN (17:02)
[2021-12-13] MEDS ORDERED: ALBUTEROL 2.5 MG/3 ML NEB SOL NEB PRN (17:02)
[2021-12-13] MEDS ORDERED: LORazepam 2 MG/ML VIAL ONE (17:26)
[2021-12-13] MEDS ORDERED: levETIRAcetam 500 MG TAB PO SCH (21:00)
[2021-12-13 21:39] VITALS: BMI 32.1
[2021-12-13] MEDS: levETIRAcetam 500 MG TAB PO SCH (22:42)
[2021-12-13] MEDS: ONDANSETRON 4 MG/2 ML VIAL IV PRN (22:42)
[2021-12-13] MEDS: MORPHINE 2 MG/ML SYR IV PRN (22:43)
[2021-12-13] MEDS: clonazePAM 0.5 MG TAB PO PRN (23:33)
[2021-12-14 05:41] LABS: Hematocrit 33.5 % (36.0-45.0); Lymphocytes % 30.3 % (15.3-44.8); MPV 6.2 fL (7.6-11.3); RBC Red Blood Cell Count 3.91 M/uL (3.86-4.86)
[2021-12-14 05:52] LABS: Magnesium 2.1 mg/dL (1.8-2.4); Phosphorus 4.2 mg/dL (2.5-4.9); Potassium 3.4 mmol/L (3.5-5.1)
[2021-12-14] MEDS: ONDANSETRON 4 MG/2 ML VIAL IV PRN ×3 (06:41→20:09)
[2021-12-14] MEDS: MORPHINE 2 MG/ML SYR IV PRN ×3 (06:41→20:09)
--- NOTE | 2021-12-14 06:56 | P.PN ---
Date of Service: 12/14/21 Subjective: slight improvement in weakness of upper/lower extremities r femoral pain is worse than when she recently left AMA ROS: 10 point ROS as noted above, otherwise negative Physical exam GEN: Alert, oriented, NAD HEENT: Normal conjunctiva, sclera anicteric, EOMI CV: Regular rate and rhythm, no edema Pulm: Non-labored respirations on room air ABD: Soft, nontender, nondistended Integumentary: RLE: medial upper thigh: small superficial ecchymosis, no palpable hematoma, tender around ~femoral triangle Neuro: Normal speech, normal affect, / RUE/RLE, RLE evaluation limited due to pain in upper thigh, lack of sensation to pain in RUE/RLE, no facial nerve palsies Problem List R-sided weakness and sensation loss, recent CVA vs Dewey's paralysis R upper thigh pain Epilepsy h/o HTN h/o COPD feels she has made slight improvement reports seizure in ambulance anxiety has been high lately / stressed. recently broke up with boyfriend during recent hospitalization a few days ago continue nallely neuro consulted patient reportedly with inconsistent exam findings / seen moving arm much easier, then 1 minute later unable to move arm as much during exam CT brain, CTA brain negative; MRI ordered U/S of R groin after recent cath without hematoma, no palpable hematoma, repeat U/S 12/14 pain control PT consult possibility of component of munchausen's vs malingering Code: full Dispo: home, ~1-2 days Time Spent Managing Pts Care (In Minutes): 35
[2021-12-14] MEDS: CLOPIDOGREL 75 MG TABLET PO SCH (08:30)
[2021-12-14] MEDS: ENOXAPARIN 40 MG/0.4 ML SQ SCH (08:30)
[2021-12-14] MEDS: FLUOXETINE 20 MG CAP PO SCH (08:30)
[2021-12-14] MEDS: ASPIRIN EC 81 MG TAB PO SCH (08:30)
[2021-12-14] MEDS: FOLIC ACID 1 MG TABLET PO SCH (08:30)
[2021-12-14] MEDS: levETIRAcetam 500 MG TAB PO SCH ×2 (08:30→21:11)
[2021-12-14] MEDS ORDERED: FOLIC ACID 1 MG TABLET PO SCH (09:00)
[2021-12-14] MEDS: clonazePAM 0.5 MG TAB PO PRN (14:42)
[2021-12-14] MEDS ORDERED: ATORVASTATIN 40 MG TAB PO SCH (21:00)
[2021-12-14] MEDS: LORazepam 2 MG/ML VIAL IV PRN (21:10)
[2021-12-15] MEDS: MORPHINE 2 MG/ML SYR IV PRN ×3 (03:50→14:10)
[2021-12-15] MEDS: ONDANSETRON 4 MG/2 ML VIAL IV PRN ×3 (03:52→14:09)
[2021-12-15 06:28] LABS: Bilirubin Total 0.3 mg/dL (0.2-1.0); Potassium 3.5 mmol/L (3.5-5.1); Protein, Total 6.1 g/dL (6.4-8.2)
[2021-12-15] MEDS: levETIRAcetam 500 MG TAB PO SCH (08:07)
[2021-12-15] MEDS: ASPIRIN EC 81 MG TAB PO SCH (08:07)
[2021-12-15] MEDS: FOLIC ACID 1 MG TABLET PO SCH (08:07)
[2021-12-15] MEDS: ENOXAPARIN 40 MG/0.4 ML SQ SCH (08:07)
[2021-12-15] MEDS: FLUOXETINE 20 MG CAP PO SCH (08:07)
[2021-12-15] MEDS: CLOPIDOGREL 75 MG TABLET PO SCH (08:08)
[2021-12-15 09:03] LABS: Urine Appearance Clear (Clear); Urine Bilirubin Negative (Negative); Urine Blood Trace-intact (Negative); Urine Color Yellow (Yellow); Urine Glucose Negative (Negative); Urine Protein Negative (Negative); Urine Specific Gravity 1.025 (1.005-1.030); Urine Urobilinogen 0.2 mg/dL (0.2-1.0)
[2021-12-15 09:10] LABS: Urine Bacteria <20 /HPF (<20); Urine Microscopic Reflex ORDER UMIC
[2021-12-15 09:11] LABS: Urine Amorphous Sediment 1+ /HPF (NONE SEEN)
[2021-12-15] MEDS: clonazePAM 0.5 MG TAB PO PRN (11:27)
[2021-12-15] MEDS: LORazepam 2 MG/ML VIAL IV PRN ×2 (12:39→16:04)
[2021-12-15] MEDS ORDERED: DIVALPROEX DR 500MG TAB PO SCH ×2 (13:00→21:00)
--- NOTE | 2021-12-15 13:25 | RAD REPORT ---
EXAM DESCRIPTION: CT - Head Brain Wo Cont - 12/15/2021 1:07 pm CLINICAL HISTORY: seizure Headache, drowsiness, seizure. COMPARISON: Head angio dated 12/13/2021; Ct Stroke Brain Wo Cont dated 12/13/2021 TECHNIQUE: All CT scans are performed using dose optimization technique as appropriate and may inclu de automated exposure control or mA/KV adjustment according to patient size. FINDINGS: No intracranial hemorrhage, hydrocephalus or extra-axial fluid collection.No areas of brai n edema or evidence of midline shift. The paranasal sinuses and mastoids are clear. The calvarium is intact. IMPRESSION: No acute intracranial abnormality.
--- NOTE | 2021-12-15 13:28 | P.PN ---
Date of Service: 12/15/21 Subjective: patient was feeling better today, deficits improved but not 100% back to normal felt good enough to go home, reported will have more support, and ambulated with walker safely dc orders were placed, however prior to patient leaving, she had a seizure patient was downstairs with her significant other. Apparently left the floor to smoke; which delayed discharge on return, she had seizure in the hallway lasting ~1 minute. She went on to have 3 seizures within 5 minutes she was noted to have nose bleed at time of seizure as well did not bite tongue, no loss of bowel/bladder, subjective increased weakness of RUE again denied taking anything else beyond smoking a cigarette when she was off the fl oor ROS: 10 point ROS as noted above, otherwise negative Physical exam GEN: Alert, oriented HEENT: Normal conjunctiva, sclera anicteric, EOMI, dried blood in R nostril CV: Regular rate and rhythm, no edema Pulm: Non-labored respirations on room air ABD: Soft, nontender, nondistended Integumentary: RLE: medial upper thigh: small superficial ecchymosis, no palpable hematoma, tender around ~femoral triangle Neuro: Normal speech, depressed affect, 4/5 RUE/RLE, RLE evaluation limited due to pain in upper thigh, decreased sensation to pain in RUE/RLE, no facial nerve palsies Problem List R-sided weakness and sensation loss, 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 patient remembered/heard me asking SO if she used any cocaine. When she stopped seizing, a few seconds later she said she didn't use any cocaine unable to lift R arm off stretcher. Patient's arm elevated over head when supine. Arm slowly, in jerky movements lowered to bed. check UDS today. Claims haven't used cocaine in ~1 month; however UDS positive for it last week. anxiety has been high lately / stressed. recently broke up with boyfriend during recent hospitalization a few days ago, boyfriend now back in the picture / at bedside today biological mother of her 2 adopted children has been threatening to take children continue keppra neuro consulted - load with depakote, add 500mg bid after load patient reportedly with inconsistent exam findings on multiple views / seen moving arm much easier, then 1 minute later unable to move arm as much during exam; similar last hospitalization as well CT brain, CTA brain negative; MRI ordered U/S of R groin after recent cath without hematoma, no palpable hematoma, repeat U/S 12/14 - no thrombus, no hematoma, no aneurysm noted pain control PT consult possibility of component of munchausen's vs malingering Code: full Dispo: home, ~1-2 days Time Spent Managing Pts Care (In Minutes): 35
[2021-12-15 14:58] VITALS: TEMP 99
--- NOTE | 2021-12-15 15:21 | RAD REPORT ---
EXAM DESCRIPTION: US - Extremity Venous Uni Ltd - 12/15/2021 3:14 pm CLINICAL HISTORY: r/o thrombus/ hematoma / pseudoaneurysm Leg swelling and edema. COMPARISON: <Comparisons> FINDINGS: Right lower extremity venous system was interrogated with Doppler technique. Normal flow, compressibility and augmentation was noted. There is no DVT present. IMPRESSION: No evidence of right lower extremity deep venous thrombosis.
[2021-12-15 15:29] VITALS: O2SAT 97
[2021-12-15] MEDS ORDERED: NICOTINE 14 MG/PAT TD PRN (16:00)
[2021-12-15] MEDS ORDERED: NICOTINE 14 MG/PAT TD SCH (16:00)
[2021-12-15 17:15] LABS: Barbiturates NEGATIVE (NEGATIVE); Benzodiazepines POSITIVE (NEGATIVE); Cocaine POSITIVE (NEGATIVE); METHAMPHETAM NEGATIVE (NEGATIVE); Methadone NEGATIVE (NEGATIVE); Opiates POSITIVE (NEGATIVE); Phencyclidine NEGATIVE (NEGATIVE); THC Cannibis NEGATIVE (NEGATIVE)
[2021-12-15 18:31] VITALS: BP 144/88
--- NOTE | 2021-12-15 20:27 | P.DS ---
Admission Date: 12/14/21 Discharge Date: 12/15/21 Disposition: AMA-LEFT AGAINST MEDICAL ADVIC Discharge Condition: GOOD Reason for Admission: right sided weakness Consultations: Neurology - Dr. Ireland Brief History of Present Illness: 51 yo F with history of CAD, HTN, epilepsy, and cocaine use who presents to ED with right sided numbness, weakness, and paresthesias. She was initially admitted on 12/09 for chest pain and underwent cardiac cath with no significant stenosis on 12/10. After the procedure, patient had 2 seizure episodes which were abated with Valium. Patient was then noted to have R sided weakness and received TNK. Deficits gradually improved and MRI revealed no acute findings. Patient left AMA yesterday and returns today for worsening symptoms in right upper and lower extremities. She is unable to walk due to the weakness. She reports she has been unable to take her seizure medication due to nausea and vomiting and believes she had a seizure at home. Patient is extremely anxious, and also reports right groin pain. 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 CT and CTA head were negative. On day of discharge, patient was noted to be leaving the floor with her boyfriend. Upon return to her room, she had a seizure/pseudoseizure in the hallway, with a mild nosebleed. She went on to have 3 pseudoseizure's in total within ~10 minutes. After her 2nd episode she responded she only smoked a cigarette and did not use any cocaine. This was answering my question I had for her boyfriend while she was seizing. She heard/remembered my question while she was seizing. Boyfriend denied any cocaine use while off the floor. After seizure, she reported she couldn't feel her right arm or lift it off the bed. I was able to lift her arm with some slight resistance above her face. When I let go, her arm slowly lowered to her side in jerky movements. This would go along with patient's inconsistent exams throughout this and her prior hospitalization. Patient was given ativan and transferred to ICU for closer monitoring. A CT head was performed and negative for acute process. A UDS was checked which resulted +cocaine. Shortly after, I was paged by nurse that patient reportedly felt better, was ready to go home, and signed out AMA...again. Vital Signs/Physical Exam: Temp Pulse Resp BP Pulse Ox 99 F 94 H 18 144/88 H 95 12/15/21 14:00 12/15/21 18:00 12/15/21 18:00 12/15/21 17:00 12/15/21 14:10 Left AMA prior to my arrival to her room Laboratory Data at Discharge: WBC 6.6 K/uL (4.3-10.9) D 12/14/21 05:20 Hgb 10.7 g/dL (12.0-15.0) L 12/14/21 05:20 Hct 33.5 % (36.0-45.0) L 12/14/21 05:20 Plt Count 393 K/uL (152-406) 12/14/21 05:20 PT 11.3 SECONDS (9.5-12.5) 12/13/21 14:00 INR 1.03 12/13/21 14:00 APTT 32.9 SECONDS (24.3-36.9) 12/13/21 14:00 Sodium 140 mmol/L (136-145) 12/15/21 05:15 Potassium 3.5 mmol/L (3.5-5.1) 12/15/21 05:15 BUN 11 mg/dL (7-18) 12/15/21 05:15 Creatinine 0.72 mg/dL (0.55-1.3) 12/15/21 05:15 Glucose 99 mg/dL (74-106) 12/15/21 05:15 Phosphorus 4.2 mg/dL (2.5-4.9) 12/14/21 05:20 Magnesium 2.1 mg/dL (1.8-2.4) 12/14/21 05:20 Total Bilirubin 0.3 mg/dL (0.2-1.0) 12/15/21 05:15 AST 15 U/L (15-37) 12/15/21 05:15 ALT 19 U/L (12-78) 12/15/21 05:15 Alkaline Phosphatase 127 U/L (45-117) H 12/15/21 05:15 Triglycerides 223 mg/dL (<150) H 12/14/21 05:20 Cholesterol 127 mg/dL (<200) 12/14/21 05:20 HDL Cholesterol 40 mg/dL (40-60) 12/14/21 05:20 Cholesterol/HDL Ratio 3.18 12/14/21 05:20 Home Medications: Fluoxetine HCl [Prozac] 1 tab PO DAILY 12/09/21 clonazePAM [Klonopin] 1 tab PO BID 12/09/21 Aspirin [Aspirin EC 81 MG] 81 mg PO DAILY 30 Days #30 tablet. 12/12/21 Atorvastatin Calcium [Lipitor] 40 mg PO BEDTIME 30 Days #30 tab 12/12/21 Clopidogrel Bisulfate [Plavix*] 75 mg PO DAILY 30 Days #30 tablet 12/12/21 Folic Acid 1 mg PO DAILY 30 Days #30 tablet 12/12/21 levETIRAcetam [Keppra*] 1,000 mg PO DAILY tab 12/12/21 levETIRAcetam [Keppra*] 1,500 mg PO BEDTIME tab 12/12/21 Atorvastatin Calcium [Lipitor] 40 mg PO BEDTIME 30 Days #30 tab 12/15/21 Clopidogrel Bisulfate [Plavix] 75 mg PO DAILY 30 Days #30 tablet 12/15/21 Codeine/APAP [Tylenol W/Codeine #3 tab] 1 tab PO Q8HP PRN #10 tab 12/15/21 Folic Acid 1 mg PO DAILY 30 Days #30 tablet 12/15/21 New Medications: Folic Acid 1 mg PO DAILY 30 Days #30 tablet Atorvastatin Calcium [Lipitor] 40 mg PO BEDTIME 30 Days #30 tab Clopidogrel Bisulfate [Plavix] 75 mg PO DAILY 30 Days #30 tablet Codeine/APAP [Tylenol W/Codeine #3 tab] 1 tab PO Q8HP PRN #10 tab PRN Reason: Pain Physician Discharge Instructions: CT and CTA brain were negative for any acute issues. No stroke. Patient was resumed on her home medicatiosn - keppra, aspirin, plavix, statin, folic acid she had improvement of her symptoms. Most consistent with Dewey's paralysis Recommended to continue medications as prescribed. Follow up with PCP within 1 week Follow up with neurology in ~1 month Followup: Javier Ireland MD [ASSOCIATE-ACTIVE - CAN ADMIT] - (neurologist- follow up in 1 month call to schedule an appointment ) NONE,NONE [Primary Care Provider] - Time spent managing pt's care (in minutes): 45
--- NOTE | 2021-12-17 12:26 | EKG ---
Test Date: 2021-12-13 Test Time: 13:39:42 Manager [employer] Operations: TP MEASUREMENT RESULTS: Intervals: Rate: 91 AR: 132 QRSD: 82 QT: 340 QTc: 418 [place]: P: 71 AR: 132 QRS: 119 T: 76 INTERPRETIVE STATEMENTS: Normal sinus rhythm Right axis deviation Pulmonary disease pattern Nonspecific T wave abnormality Abnormal ECG Compared to ECG 12/08/2021 23:19:09 T-wave abnormality now present Electronically Signed On 12-17-21 12:17:48 CDT by Migel Warren
== END 2021-12-15 18:25 | disposition left against medical advice (07) | DRG 93 ==
LOC: ER 13:12 → ERHOLD 16:19 → 2ND 20:23 → OBSVTOIN 12-14 09:21 → 3RD-ICU 12-15 13:27
PROVIDERS: ADMIT Hospitalist; ATTEND Hospitalist
DX: G83.84 Todd's paralysis (postepileptic) (principal); I25.10 Atherosclerotic heart disease of native coronary artery without angina pectoris; I10 Essential (primary) hypertension; G40.909 Epilepsy, unspecified, not intractable, without status epilepticus; M79.651 Pain in right thigh; F14.10 Cocaine abuse, uncomplicated; R04.0 Epistaxis; Z53.29 Procedure and treatment not carried out because of patient's decision for other reasons; F41.8 Other specified anxiety disorders; Z20.822 Contact with and (suspected) exposure to COVID-19
CPT/HCPCS: 36415; 70450; 70496; 70498; 71045; 80048; 80053; 80061; 80307; 81003; 81015; 83735; 84100; 85025; 85610; 85730; 93005; 93971; 96365; 96375; 97116; 97161; 97530; 99285; G0378; J1650; J1953; J2270; J2405; Q9967; U0003

== ENCOUNTER 2021-12-27 21:07 | Emergency (ER) | payer SELFPAY ==
--- OUTSIDE RECORDS SUMMARY | 2021-12-27 21:14 | XMS REPORT | Continuity of Care Document ---
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 09-27 it y of disorder disorder 00:00: [place] [facility] Breast Breast Disease Active Univers mass, left mass, left 3 it y of 00:00: [place] [facility] Anxiety Anxiety Disease Active Univers 3 ity of 00:00: Medical Branch Lower back Lower back Disease Active U nivers pain pain 3 ity of 00:00: [place] [facility] High blood High blood Disease Active U nivers pressure pressure 3 ity of 00:00: [place] [facility] COPD COPD Disease Active Univers (chronic (chronic 3 ity of obstructiv obstructiv [place] 00 Medical pulmonary pulmonary Bran ch disease) disease) Obesity Obesity Disease Active Univers 3- ity of 00:00: [place] 00 Medical Branch Allergies, Adverse Reactions, Alerts [...] tobacco Cigar Smoker Univ ersity of use [facility] Exposure to 2021-11-13 2021-11-23 Not sure University of SARS-CoV-2 (event) 00:00:00 15:13:00 [facility] Alcohol intake 2021-11-23 2021-11-23 0 /d University of 00:00:00 00:00:00 [facility] Cigarettes smoked 2021-03-14 2021-03-14 Univers ity of current (pack per 00:00:00 00:00:00 ) - Reported Branch Cigarette 2021-03-14 2021-03-14 University of pack-years 00:00:00 00:00:00 [facility] Tobacco use and 2021-03-14 2021-03-14 Never used Universit y of exposure 00:00:00 00:00:00 [facility] Sex [birth year] At [birth year] Universit y of 00:00:00 00:00:00 [facility] Smoking Status Start Date Stop Date Source Current every day smoker 2021-03-14 00:00:[address] [facility] Medications Ordered Filled Start Stop Current [...] IV ity of (REGLAN) 22:30: 21:24 Push, [place] injection 00 :00 ONCE, 1 Medical 10 [...] Med ical mg 03/16/21 at Branch 2100, MICAHEL morpHINE 2020-0 2020- No 4mg 4 mg, [...] IV ity of succ 01:57: 02:11 [place], [place] (SOLU-MEDRO 00 :00 ONCE, 1 Medic al [...] IV ity of succ 01:57: 02:11 [place], [place] (SOLU-MEDRO 00 :00 ONCE, 1 Medic al L) dose, Sat Branch injection 03/16/21 at 125 mg 2100, STAT ipratropium No 3mL 3 mL, Univ ers -albuteroL 03-17 Inhalation it y of (DUONEB) 01:57: 02:15 , ONCE, 1 Javier as 0.5 mg-3 00 :00 dose, Sat Medica l mg(2.5 mg 03/16/21 at Bran base)/3 mL 2100, MICHAEL nebulizer solution 3 mL levoFLOXaci 2020- No [id number] 500mg Take 1 Univers n 500 mg 03-17 tablet by ity o f tablet 00:00: 04:59 mouth [place] 00 :00 daily for Medical 6 days. Branch levoFLOXaci 2020- No [id number] 500mg Take 1 Univers n 500 mg 03-17 tablet by ity o f tablet 00:00: 04:59 mouth [place] 00 :00 daily for Medical 6 days. Branch levoFLOXaci 2020- No [id number] 500mg Take 1 Univers n 500 mg 03-17 tablet by ity o f tablet 00:00: 04:59 mouth [place] 00 :00 daily for Medical 6 days. Branch levoFLOXaci 2020- No [id number] 500mg Take 1 Univers n 500 mg 03-17 tablet by ity o f tablet 00:00: 04:59 mouth [place] 00 :00 daily for Medical 6 days. Branch predniSONE 2020- No [id number] 30mg Take 3 Univers 10 mg 03-17 tablets by ity of tablet 00:00: 04:59 mouth [place] 00 :00 daily for Medical 4 days. [place] predniSONE 2020- No [id number] 30mg Take 3 Univers 10 mg 8-17 04-03 tablets by ity of tablet 00:00: 04:59 mouth [place] 00 :00 daily for Medical 4 days. Branch predniSONE 2020-2020- No [id number] 30mg Take 3 Univers 10 mg 8-17 04-03 tablets by ity of tablet 00:00: 04:59 mouth [place] 00 :00 daily for Medical 4 days. Branch predniSONE 2020- No [id number] 30mg Take 3 Univers 10 mg 8-17 04- tablets by ity of tablet 00:00: 04:59 mouth [place] 00 :00 daily for Medical 4 days. [place] albuterol 2020- No [id number] 4{puff} 4 Puff, Univers (VENTOLIN) 03-15- Inhalation it y of inhaler 4 01:45: 00:44 , ONCE, 1 [place] Puff 00 :00 dose, Arpita Medical 03/14/21 at [place] 2044, Routine dexamethaso 2020- No [id number] 10mg 10 mg, Univers ne 03-15- Intramuscu ity of (DECADRON) 01:45: 00:45 lar, ONCE, [place] injection 00 :00 1 dose, Medical 10 mg Arpita [place] 03/14/21 at 5, Routine albuterol Yes [id number] 2.5mg Inhale 3 Univers 2.5 mg /3 8-27 mL every 4 ity of mL (0.083 00:00: (four) [place] %) 00 hours as Medical nebulizer needed for Bran ch solution Wheezing or Shortness of Breath. albuterol Yes [id number] 2.5mg Inhale 3 Univers 2.5 mg /3 8-27 mL every 4 ity of mL (0.083 00:00: (four) [place] %) 00 hours as Medical nebulizer needed for Bran ch solution Wheezing or Shortness of Breath. albuterol Yes [id number] 2.5mg Inhale 3 Univers 2.5 mg /3 8-27 mL every 4 ity of mL (0.083 00:00: (four) [place] %) 00 hours as Medical nebulizer needed for Bran ch solution Wheezing or Shortness of Breath. albuterol 2020-0 Yes [id number] 2.5mg Inhale 3 Univers 2.5 mg /3 8-27 mL every 4 ity of mL (0.083 00:00: (four) [place] %) 00 hours as Medical nebulizer needed for Bran ch solution Wheezing or Shortness of Breath. albuterol 2020-0 Yes [id number] 2.5mg Inhale 3 Univers 2.5 mg /3 8-27 mL every 4 ity of mL (0.083 00:00: (four) [place] %) 00 hours as Medical nebulizer needed for Bran ch solution Wheezing or Shortness of Breath. albuterol 2020-0 Yes [id number] 2.5mg Inhale 3 Univers 2.5 mg /3 8-27 mL every 4 ity of mL (0.083 00:00: (four) [place] %) 00 hours as Medical nebulizer needed for Bran ch solution Wheezing or Shortness of Breath. albuterol 2020-0 Yes [id number] 2.5mg Inhale 3 Univers 2.5 mg /3 8-27 mL every 4 ity of mL (0.083 00:00: (four) [place] %) 00 hours as Medical nebulizer needed for Bran ch solution Wheezing or Shortness of Breath. albuterol 2020-0 Yes [id number] 2.5mg Inhale 3 Univers 2.5 mg /3 8-27 mL every 4 ity of mL (0.083 00:00: (four) [place] %) 00 hours as Medical nebulizer needed for Bran ch solution Wheezing or Shortness of Breath. albuterol 2020-0 Yes [id number] 2.5mg Inhale 3 Univers 2.5 mg /3 [...] (KEPPRA 8-03 mouth. ity of ORAL) 19:45: [address] levetiracet Yes Take by Un lois am (KEPPRA 8-03 mouth. ity of ORAL) 19:45: [address] levetiracet Yes Take by Un lois am (KEPPRA 8-03 mouth. ity of ORAL) 19:45: [address] levetiracet Yes Take by Un lois am (KEPPRA 8-03 mouth. ity of ORAL) 19:45: [address] levetiracet Yes Take by Un lois am (KEPPRA 8-03 mouth. ity of ORAL) 19:45: [address] levetiracet Yes Take by Un lois am (KEPPRA 8-03 mouth. ity of ORAL) 19:45: [address] LISINOPRIL- 2020- No Take by U nivers HYDROCHLORO 02-19 mouth. ity o f THIAZIDE 19:41: 00:00 [place] ORAL 15 :00 [facility] dicyclomine 2020- No 20mg 20 mg, [...] ity of (PF)) 17:00: 15:59 ONCE, 1 [place] injection 4 00 :00 dose, Tue Med ical mg 02/19/21 at Branch 1200, MICHAEL iopamidol 2020- No [id number] 100mL 100 mL, Univers (ISOVUE 02-19 Intravenou ity o f 370-500 mL) 16:35: 16:45 s, ONCE, 1 [place] injection 00 :00 dose, Tue Medic al 100 mL 02/19/21 at Branch 1145, Routine levetiracet Yes Take by Un lois am (KEPPRA 8-03 mouth. ity of ORAL) 14:45: [address] levetiracet 0 Yes Take by Un lois am (KEPPRA 8-03 mouth. ity of ORAL) 14:45: [address] levetiracet 0 Yes Take by Un lois am (KEPPRA 8-03 mouth. ity of ORAL) 14:45: [address] levetiracet 0 Yes Take by Un lois am (KEPPRA 8-03 mouth. ity of ORAL) 14:45: [address] proMETHazin Yes [id number] 25mg Take 1 Univers e 25 mg 8-03 tablet by ity of tablet 00:00: mouth [place] 00 every 6 Medical (six) Branch hours as needed for Nausea and Vomiting (N/V). dicyclomine 0 Yes [id number] 20mg Take 1 Univers 20 mg 8-03 tablet by ity of tablet 00:00: mouth 4 00 (four) Medical times Branch daily as needed for Abdominal pain. proMETHazin 2020-0 Yes [id number] 25mg Take 1 Univers e 25 mg 8-03 tablet by ity of tablet 00:00: mouth [place] 00 every 6 Medical (six) Branch hours as needed for Nausea and Vomiting (N/V). dicyclomine 2020-0 Yes [id number] 20mg Take 1 Univers 20 mg 8-03 tablet by ity of tablet 00:00: mouth (four) Medical times Branch daily as needed for Abdominal pain. proMETHazin 2020-0 Yes [id number] 25mg Take 1 Univers e 25 mg 8-03 tablet by ity of tablet 00:00: mouth [place] 00 every 6 Medical (six) Branch hours as needed for Nausea and Vomiting (N/V). dicyclomine 2020-0 Yes [id number] 20mg Take 1 Univers 20 mg 8-03 tablet by ity of tablet 00:00: mouth (four) Medical times Branch daily as needed for Abdominal pain. proMETHazin 2020-0 Yes [id number] 25mg Take 1 Univers e 25 mg 8-03 tablet by ity of tablet 00:00: mouth [place] 00 every 6 Medical (six) Branch hours as needed for Nausea and Vomiting (N/V). dicyclomine 2020-0 Yes [id number] 20mg Take 1 Univers 20 mg 8-03 tablet by ity of tablet 00:00: mouth (four) Medical times Branch daily as needed for Abdominal pain. proMETHazin 2020-0 Yes [id number] 25mg Take 1 Univers e 25 mg 8-03 tablet by ity of tablet 00:00: mouth [place] 00 every 6 Medical (six) Branch hours as needed for Nausea and Vomiting (N/V). dicyclomine 2020-0 Yes [id number] 20mg Take 1 Univers 20 mg 8-03 tablet by ity of tablet 00:00: mouth 4 00 (four) Medical times Branch daily as needed for Abdominal pain. proMETHazin 2020-0 Yes [id number] 25mg Take 1 Univers e 25 mg 8-03 tablet by ity of tablet 00:00: mouth [place] 00 every 6 Medical (six) Branch hours as needed for Nausea and Vomiting (N/V). dicyclomine 2021-0 Yes [id number] 20mg Take 1 Univers 20 mg 8-03 tablet by ity of tablet 00:00: mouth 4 00 (four) Medical times Branch daily as needed for Abdominal pain. proMETHazin 2020-0 Yes [id number] 25mg Take 1 Univers e 25 mg 8-03 tablet by ity of tablet 00:00: mouth [place] 00 every 6 Medical (six) Branch hours as needed for Nausea and Vomiting (N/V). dicyclomine 2020-0 Yes [id number] 20mg Take 1 Univers 20 mg 8-03 tablet by ity of tablet 00:00: mouth 00 (four) Medical times Branch daily as needed for Abdominal pain. proMETHazin 2020-0 Yes [id number] 25mg Take 1 Univers e 25 mg 8-03 tablet by ity of tablet 00:00: mouth [place] 00 every 6 Medical (six) Branch hours as needed for Nausea and Vomiting (N/V). dicyclomine 2020-0 Yes [id number] 20mg Take 1 Univers 20 mg 8-03 tablet by ity of tablet 00:00: mouth 00 (four) Medical times Branch daily as needed for Abdominal pain. proMETHazin 2020-0 Yes [id number] 25mg Take 1 Univers e 25 mg 8-03 tablet by ity of tablet 00:00: mouth [place] 00 every 6 Medical (six) Branch hours as needed for Nausea and Vomiting (N/V). dicyclomine 2020-0 Yes [id number] 20mg Take 1 Univers 20 mg 8-03 tablet by ity of tablet 00:00: mouth 00 (four) Medical times Branch daily as needed for Abdominal pain. proMETHazin 2020-0 Yes [id number] 25mg Take 1 Univers e 25 mg 8-03 tablet by ity of tablet 00:00: mouth [place] 00 every 6 Medical (six) Branch hours as needed for Nausea and Vomiting (N/V). dicyclomine 2020-0 Yes [id number] 20mg Take 1 Univers 20 mg 8-03 [...] o f mg tablet 20:05: every 8 [place] (eight) Medical hours as Branch needed. pantoprazol 2018-0 Yes 40mg Take 40 mg Univers e 7-24 by mouth ity of (PROTONIX) 20:05: daily. [place] 40 mg EC Medical tablet Branch ondansetron 2017-0 Yes 4mg Take 4 mg U nivers (ZOFRAN) 4 7-24 by mouth ity o f mg tablet 20:05: every 8 [place] [address] (eight) Medical hours as Branch needed. pantoprazol 2018-0 Yes 40mg Take 40 mg Univers e 7-24 by mouth ity of (PROTONIX) 20:05: daily. [place] 40 mg EC Medical tablet Branch LISINOPRIL- 2017-0 Yes Take by Un lois HYDROCHLORO 7-24 mouth. ity of THIAZIDE 20:05: [place] ORAL Medical Branch ondansetron 2018-0 Yes 4mg Take 4 mg U nivers (ZOFRAN) 4 7-24 by mouth ity o f mg tablet 20:05: every 8 [place] [address] (eight) Medical hours as Branch needed. pantoprazol 2018-0 Yes 40mg Take 40 mg Univers e 7-24 by mouth ity of (PROTONIX) 20:05: daily. [place] 40 mg EC Medical tablet Branch ondansetron 2018-0 Yes 4mg Take 4 mg U nivers (ZOFRAN) 4 7-24 by mouth ity o f mg tablet 20:05: every 8 [place] [address] (eight) Medical hours as Branch needed. pantoprazol 2018-0 Yes 40mg Take 40 mg Univers e 7-24 by mouth ity of (PROTONIX) 20:05: daily. [place] 40 mg EC Medical tablet Branch ondansetron [...] 7-24 by mouth ity of 19:58: daily. [place] 14 Medical Branch loratadine 2018-0 Yes Take by Uni vers (CLARITIN 7-24 mouth ity of LIQUI-GEL) 19:58: daily. [place] 10 mg 14 Medical capsule Branch MULTIVITAMI Yes 1{tbl} Take 1 Tab Univers N ORAL 7-24 by mouth ity of 19:58: daily. [place] [address] Medical Branch loratadine Yes Take by Uni vers (CLARITIN 7-24 mouth ity of LIQUI-GEL) 19:58: daily. [place] 10 mg 14 Medical capsule Branch MULTIVITAMI Yes 1{tbl} Take 1 Tab Univers N ORAL 7-24 by mouth ity of 19:58: daily. [place] [address] Medical Branch loratadine Yes Take by Uni vers (CLARITIN 7-24 mouth ity of LIQUI-GEL) 19:58: daily. [place] 10 mg 14 Medical capsule Branch MULTIVITAMI Yes 1{tbl} Take 1 Tab Univers N ORAL 7-24 by mouth ity of 19:58: daily. [address] loratadine Yes Take by Uni vers (CLARITIN 7-24 mouth ity of LIQUI-GEL) 19:58: daily. [place] 10 mg 14 Medical capsule Branch MULTIVITAMI Yes 1{tbl} Take 1 Tab Univers N ORAL 7-24 by mouth ity of 19:58: daily. [address] loratadine Yes Take by Uni vers (CLARITIN 7-24 mouth ity of LIQUI-GEL) 19:58: daily. [place] 10 mg 14 Medical capsule [place] MULTIVITAMI Yes 1{tbl} Take 1 Tab Univers N ORAL 7-24 by mouth ity of 19:58: daily. [place] [address] Medical [place] loratadine Yes Take by Uni vers (CLARITIN 7-24 mouth ity of LIQUI-GEL) 19:58: daily. [place] 10 mg 14 Medical capsule Branch MULTIVITAMI Yes 1{tbl} Take 1 Tab Univers N ORAL 7-24 by mouth ity of 19:58: daily. [address] Branch loratadine Yes Take by Uni vers (CLARITIN 7-24 mouth ity of LIQUI-GEL) 19:58: daily. [place] 10 mg 14 Medical capsule Branch ondansetron [...] 7-24 by mouth ity of 14:58: daily. [address] loratadine Yes Take by Uni vers (CLARITIN 7-24 mouth ity of LIQUI-GEL) 14:58: daily. [place] 10 mg 14 Medical capsule Branch MULTIVITAMI Yes 1{tbl} Take 1 Tab Univers N ORAL 7-24 by mouth ity of 14:58: daily. [address] loratadine Yes Take by Uni vers (CLARITIN 7-24 mouth ity of LIQUI-GEL) 14:58: daily. [place] 10 mg 14 Medical capsule Branch MULTIVITAMI Yes 1{tbl} Take 1 Tab Univers N ORAL 7-24 by mouth ity of 14:58: daily. [address] loratadine Yes Take by Uni vers (CLARITIN 7-24 mouth ity of LIQUI-GEL) 14:58: daily. [place] 10 mg 14 Medical capsule Branch MULTIVITAMI Yes 1{tbl} Take 1 Tab Univers N ORAL 7-24 by mouth ity of 14:58: daily. [address] loratadine Yes Take by Uni vers [...] 10 mg 00:00: daily. [place] tablet 00 [facility] lisinopril 2015-0 Yes 40mg Take 1 Tab U nivers (PRINIVIL,Z 3-03 by mouth ity of ESTRIL) 40 00:00: daily. [place] mg tablet 00 [facility] Immunizations Ordered Filled Immunization Date Status Comments Sour e Immunization Name Name SARS-COV-2 COVID-19 2021-05-24 Completed Unive rsity of PFIZER VACCINE 00:00:00 [facility] SARS-COV-2 COVID-19 2021-05-24 Completed Unive rsity of PFIZER VACCINE 00:00:00 [facility] SARS-COV-2 COVID-19 2021-05-03 Completed Unive rsity of PFIZER VACCINE 00:00:00 [facility] SARS-COV-2 COVID-19 2021-05-03 Completed Unive rsity of PFIZER VACCINE 00:00:00 [facility] SARS-COV-2 COVID-19 2021-05-03 Completed Unive rsity of PFIZER VACCINE 00:00:00 [facility] Vital Signs Vital Name Observation Time Observation Value Comments Source Systolic blood 2021-11-23 21:30:00 132 mm[Hg] Univer sity of pressure [facility] Diastolic blood 2021-11-23 21:30:00 76 mm[Hg] Unive rsity of pressure [facility] Heart rate 2021-11-23 21:30:00 95 /min [facility] Respiratory rate 2021-11-23 21:30:00 13 /min [facility] O[facility] saturation in 2021-11-23 21:30:00 97 /min [facility] Arterial blood by [facility] Pulse oximetry [place] Body temperature 2021-11-23 20:15:00 37.[address] [facility] Systolic blood 2021-03-17 03:00:00 117 mm[Hg] Univer sity of pressure [facility] Diastolic blood 2021-03-17 03:00:00 76 mm[Hg] Unive [...] 2021-03-17 00:39:00 23.03 kg/m2 Universi ty of [place] [facility] Systolic blood 2021-03-15 00:14:00 149 mm[Hg] Univer sity of pressure [place] [facility] Diastolic blood 2021-03-15 00:14:00 78 mm[Hg] Unive rsity of pressure [place] [facility] Heart rate 2021-03-15 00:14:00 100 /min Universi ty of [place] [facility] Body temperature 2021-03-15 00:14:00 37.33 Radha Univ ersity of [place] [facility] Respiratory rate 2021-03-15 00:14:00 24 /min Univ ersity of [place] [facility] Body height 2021-03-15 00:14:00 160 cm Universi ty of [place] [facility] Body weight 2021-03-15 00:14:00 58.968 kg Universi ty of [place] [facility] BMI 2021-03-15 00:14:00 23.03 kg/m2 Universi ty of [place] [facility] Oxygen saturation in 2021-03-15 00:14:00 98 /min University of Arterial blood by [place] [facility]i kwame Pulse oximetry Branch Systolic blood 2021-02-19 18:00:00 131 mm[Hg] Univer sity of pressure [place] [facility] Diastolic blood 2021-02-19 18:00:00 80 mm[Hg] Unive rsity of pressure [place] [facility] Heart rate 2021-02-19 18:00:00 83 /min Universi ty of [place] [facility] Respiratory rate 2021-02-19 18:00:00 18 /min [facility] Oxygen saturation in 2021-02-19 18:00:00 100 /min [facility] Arterial blood by [facility] Pulse oximetry [place] Body temperature 2021-02-19 15:47:00 37 Radha [facility] Body height 2021-02-19 15:47:00 160 cm [facility] Body weight 2021-02-19 15:47:00 58.968 kg [facility] BMI 2021-02-19 15:47:00 23.03 kg/m2 [facility] Procedures Procedure Date / Time Performing Clinician Source Performed URINE DRUG (IMMUNOASSAY) 2021-11-23 21:21:00 Williams Allison [facility] nc SCREEN W/O REFLEX CT HEAD WO CONTRAST 2021-11-23 20:58:00 Williams Allison [facility] POCT TEST 2021-11-23 20:46:00 Williams Allison [facility] URINALYSIS 2021-11-23 20:43:00 Williams Allison [facility] LIPASE 2021-11-23 20:27:00 Williams Allison [facility] TROPONIN I 2021-11-23 20:27:00 Williams Allison [facility] COMP. METABOLIC PANEL 2021-11-23 20:27:00 [id number] CBC WITH DIFF 2021-11-23 20:27:00 Williams Allison [facility] POCT GLUCOSE (AUTOMATED) 2021-11-23 20:15:00 Doctor Unassigned, [facility] [place] [facility] [place] SARS-COV-2 COVID-19 2021-05-24 14:23:12 Doctor Unassigned, [facility] VACCINE,0.3ML,IM (PFIZER) [place] [facility] SARS-COV-2 COVID-19 2021-05-03 14:59:29 Doctor Unassigned, [facility] VACCINE,0.3ML,IM (PFIZER) [place] Medica l Branch EMERGENCY SERVICES 2021-04-16 05:01:00 Doctor Joe, [facility] AGREEMENTS AND [place] [facility] [place] AUTHORIZATIONS URINALYSIS 2021-03-17 03:09:00 Palmer [facility] XR CHEST 1 VW 2021-03-17 01:45:07 Palmer [facility] TROPONIN I 2021-03-17 01:35:00 Palmer [facility] COMP. METABOLIC PANEL 2021-03-17 01:35:00 Palmer [facility] ([id number]) Medical Branch CBC WITH DIFF 2021-03-17 01:35:00 Palmer [facility] N-TERMINAL PRO-BNP 2021-03-17 01:35:00 Palmer [facility] Branch COVID-19 (ID NOW RAPID 2021-03-17 00:58:00 Brian Ray [facility] TESTING) Medical Branch CONSENT/REFUSAL FOR 2021-03-17 00:32:59 Doctor Joe [facility] DIAGNOSIS AND TREATMENT [place] [facility] COVID-19 (ID NOW RAPID 2021-02-19 17:04:00 Anali Patel [facility] TESTING) Medical Branch CT ABDOMEN PELVIS W 2021-02-19 16:41:18 Anali Patel [facility] CONTRAST Medical Branch LIPASE 2021-02-19 15:58:00 Anali Patel [facility] COMP. METABOLIC PANEL 2021-02-19 15:58:00 Anali Patel [facility] ([id number]) Medical Branch CBC WITH DIFF 2021-02-19 15:58:00 Anali Patel [facility] URINALYSIS 2021-02-19 15:58:00 Anali Patel [facility] NOTICE OF PRIVACY 2021-02-19 15:30:46 Doctor Joe, [facility] PRACTICES [place] [facility] CONSENT/REFUSAL FOR 2021-02-19 15:30:30 Doctor Unassigned, Mackenzie [facility] DIAGNOSIS AND TREATMENT [place] [facility] Encounters Start End Encounter Admission Attending Care Care Encounter Source Date/Time Date/Time Type Type Clinicians Facility Department ID 2021-05-20 Emergency [facility] [id number] Univers 18:48:[address] [facility] 2021-05-20 Emergency [facility] [id number] Univers 12:43:[address] [facility] 2021-11-23 2021-11-23 Emergency X STEFANONAYAJENNIFER [facility] ERT [id number] Univers 15:07:00 17:03:[address] [facility] 2021-11-23 2021-11-23 Emergency Sav Rondon [facility] [id number]. [id number] Univers 15:07:00 17:03:00 Williams Allison [place] [id number]. 10 ity of [place] [id number] [facility] [id number] [facility] 084 Branch 2021-11-21 2021-11-21 Outpatient R [facility] [id number] Univers 09:40:00 09:40:[id number] [facility] 2021-11-21 2021-11-21 Outpatient R [facility] [id number] Univers 09:40:00 09:40:[address] [facility] 2021-05-24 2021-05-24 Outpatient R [facility] [id number] Univers 09:30:00 09:30:[id number] [facility] 2021-05-24 2021-05-24 Outpatient R SHILPA FREDERICK [facility] [id number] Univers 09:30:00 09:30:[address] [facility] 2021-05-24 2021-05-24 Imm/Inj Vaccine, Chung Murdocki [facility] ANJELICA FLETCHER [id number] Univers 08:47:51 08:57:51 Visit Shilpa [place] [id number] ity of PEDIATRIC [id number] [facility] [id number] [facility] 225 Branch 2021-05-03 2021-05-03 Outpatient R SHILPA FREDERICK [facility] [id number] Univers 09:40:00 09:59:[address] [facility] 2021-05-03 2021-05-03 Imm/Inj Vaccine, Chung Pierson [facility] Anjelica fletcher [id number] Univers 09:17:43 09:59:35 Visit Shilpa [place] [id number] ity of Pediatric 4.2.7.2.686 [facility] [id number] [facility] 225 Branch 2021-05-03 2021-05-03 Outpatient R [facility] [id number] Univers 09:40:00 09:40:[id number] [facility] 2021-04-16 2021-04-16 Orders Doctor THEODORE [id number] Univers 00:00:00 00:00:00 Only Unassigned, [place] [id number] ity of [place] [facility] 4.2.7.2.686 Javier as [id number] [facility] 009 Branch 2021-03-17 2021-03-17 Telephone EWELINA Nava [id number] Univers 00:00:00 00:00:00 Anesuha JC [id number] ity of [facility] [id number] Javier as [id number] [facility] 019 Branch 2021-03-16 2021-03-16 Emergency Palmer [facility] [id number] Univers 20:08:00 23:24:00 Shinta Julio Cesar 350.1.13.10 i [place] [phone] [facility] [address] 2021-03-14 2021-03-14 Urgent Lydia Desouza [facility] 1.2.840.114 [id number] Univers 18:59:34 20:19:13 Care Unknown, Attending Health 350.1.13.10 ity of [place] 4.2.7.2.686 Javier as Prem?Blea [phone] [place] [address] [facility] 2021-03-14 2021-03-14 Outpatient R [facility] [id number] -[id number] Univers 19:00:00 19:00:00 [id number] [facility] 2021-03-14 2021-03-14 Outpatient R UNKNOWN, [facility] [id number] Univers 19:00:00 19:00:00 ATTENDING [facility] 2021-02-19 2021-02-19 [facility] [id number] Univers 10:49:00 14:48:00 Anali Harrell 350.1.13.10 [place] [phone] [address] 2019-03-09 2019-03-09 [facility] 1.2.840.114 [id number] 00:00:00 00:00:00 Yehuda Harrell 350.1.13.10 [place] 4.2.7.2.686 Professio [phone] [address] 2019-03-09 2019-03-09 [facility] 1.2.840.114 [id number] Univers 00:00:00 00:00:00 Yehuda Harrell 350.1.13.10 ity [facility] [place] [phone] [place] [address] Results Test Description Test Time Test Comments Results Result Comments Source TROPONIN I 2021-11-23 21:06:40 Test Item Value Reference Range Interpretation Comme nts TROPONIN I (test code = 0.005 ng/mL See_Comment [Au tomated message] The 3026747642) system which ge nerated this result tra [...] biotin. Lab Interpretation Normal (test code = 05240-1) [facility]. METABOLIC PANEL (93637)2021-11-23 20:55:42 Test Item Value Reference Range Interpretation Comments NA (test code = 137 mmol/L 135-145 0989660805) K (test code = 4.3 mmol/L 3.5-5.0 0337050919) CL (test code = 104 mmol/L 98-108 6858412082) CO2 TOTAL (test code = 22 mmol/L 23-31 L 1999200087) AGAP (test code = 2-16 4636049109) BUN (test code = 15 mg/dL 7-23 7249629401) GLUCOSE (test code = 114 mg/dL 70-110 H 0157390496) CREATININE (test code = 0.68 mg/dL 0.50-1.04 5154754780) TOTAL BILI (test code = 0.5 mg/dL 0.1-1.6 3719707480) CALCIUM (test code = 9.1 mg/dL 8.6-10.6 6225561270) T PROTEIN (test code = 7.3 g/dL 6.3-8.2 1337825668) ALBUMIN (test code = 4.4 g/dL 3.5-5.0 0344439522) ALK PHOS (test code = 243 U/L 34-122 H 6421823763) ALTv (test code = 24 U/L 5-35 1742-6) AST(SGOT) (test code = 30 U/L 13-40 6184835100) eGFR (test code = mL/min/1.73m2 0841795181) LYNDSAY (test code = LYNDSAY) Association of [...] tests). Lab Interpretation Abnormal (test code = 10599-4) [facility]22 Test Item Value Reference Range Interpretation Comments LIPASE (test code = 2277213885) 96 U/L 0-220 Lab Interpretation (test code = Normal 36414-8) [facility] [id number] 20:46:00 Test Item Value Reference Range Interpretation Comments POCT PREG (test code = 1605) negative On board controls acceptable with present C Line (test code = 3574) POCT PREG LOT # (test code = 3575) [id number] POCT PREG TEST DATE (test 04/18/2023 code = 3576) Lab Interpretation (test code = Normal 85319-5) [facility] WITH [id number] 20:40:38 Test Item Value Reference Range Interpretation Comments WBC (test code = See_Comment [Automated 7166-2) message] The sy stem which generated this [...] (test code = 53.7 fL 39.0-49.9 H 95982-5) RDW-CV (test code = 17.2 % 12.0-15.5 H 788-0) PLT (test code = See_Comment H [Automated 777-3) message] The sy stem which generated this result transmitted reference range : 166 - 358 10*3/ ?L. The reference r zoe was not used to interpret this result as normal/abnormal . MPV (test code = 8.5 fL 9.5-12.9 L 12114-7) NRBC/100 WBC (test See_Comment [Automat ed code = 6063304129) message] The system which generated this result transmitted reference range : 0.0 - 10.0 /100 WBCs. The refer ence range was not u sed to interpret th is result as normal/abnormal . NRBC x10^3 (test code <0.01 See_Comment [Auto mated = 6336948278) message] The s ystem which generated this result transmitted reference range : 10*3/?L. The reference range was not used to interpret this result as normal/abnormal . GRAN MAT (NEUT) % 53.7 % (test code = 770-8) IMM GRAN % (test code 0.90 % = 7197760145) LYMPH % (test code = 32.6 % 736-9) MONO % (test code = 10.1 % 5905-5) EOS % (test code = 1.5 % 713-8) BASO % (test code = 1.2 % 706-2) GRAN MAT x10^3(ANC) 4.98 10*3/uL 1.88-7.09 (test code = 7506317128) IMM GRAN x10^3 (test 0.08 10*3/uL 0.00-0.06 H code = 0118703167) LYMPH x10^3 (test code 3.02 10*3/uL 1.32-3.29 = 731-0) MONO x10^3 (test code 0.94 10*3/uL 0.33-0.92 H = 742-7) EOS x10^3 (test code = 0.14 10*3/uL 0.03-0.39 711-2) BASO x10^3 (test code 0.11 10*3/uL 0.01-0.07 H = 704-7) Lab Interpretation Abnormal (test code = 76742-7) [facility]21-[facility]-23 20:17:33 Test Item Value Reference Range Interpretation Comments POCT GLU (test code = 111 mg/dL 70-110 H Notifi ed Provider 2865358473) Lab Interpretation (test Abnormal code = 54901-3) [facility] 03:22:48 Test Item Value Reference Range Interpretation Comments APPEARANCE (test code = Hazy Clear A 1583483234) COLOR (test code = Yellow Yellow 0744531022) PH (test code = 4.8-8.0 3694976898) SP GRAVITY (test code = 1.003-1.030 0418996724) GLU U QUAL (test code = Normal Normal 8562541362) BLOOD (test code = Negative Negative Interfere nce from 3861713003) ascorbic acid m ay cause false neg ative results. KETONES (test code = 5 mg/dL Negative A 1954754212) PROTEIN (test code = Negative Negative 2887-8) UROBILIN (test code = 4.0 mg/dL Normal A 2251962984) BILIRUBIN (test code = Negative Negative 3379261344) NITRITE (test code = Negative Negative 6469885427) LEUK GRUPO (test code = Negative Negative 8597522209) RBC/HPF (test code = See_Comment [Autom ated message] 9354075914) The system whic h generated this result transmitted ref erence range: 0 - 3 HP F. The reference range was not used to int erpret this result as normal/abnormal . WBC/HPF (test code = <1 See_Comment [Autom ated message] 6086020185) The system [employer] generated this result transmitted ref erence range: 0 - 5 HP F. The reference range was not used to int erpret this result as normal/abnormal . BACTERIA (test code = Few Negative A 3009969208) SQ EPITH (test code = HPF 5068013295) Lab Interpretation Abnormal (test code = 10480-3) [facility] 03:22:48 Test Item Value Reference Range Interpretation Comments APPEARANCE (test code = Hazy Clear A 8948332649) COLOR (test code = Yellow Yellow 2137644813) PH (test code = 4.8-8.0 1364699494) SP GRAVITY (test code = 1.003-1.030 0474345690) GLU U QUAL (test code = Normal Normal 3063687212) BLOOD (test code = Negative Negative 2922680859) KETONES (test code = 5 mg/dL Negative A 3865930087) PROTEIN (test code = Negative Negative 2887-8) UROBILIN (test code = 4.0 mg/dL Normal A 2578588763) BILIRUBIN (test code = Negative Negative 6737364249) NITRITE (test code = Negative Negative 4770871045) LEUK GRUPO (test code = Negative Negative 5168836102) RBC/HPF (test code = See_Comment [Autom ated message] 0655417005) The system [employer] generated this result transmit sherice reference range : 0 - 3 HPF. The refe rence range was not u sed to interpret th is result as normal/abnormal . WBC/HPF (test code = <1 See_Comment [Autom ated message] 6150239615) The system [employer] generated this result transmit sherice reference range : 0 - 5 HPF. The refe rence range was not u sed to interpret th is result as normal/abnormal . BACTERIA (test code = Few Negative A 0490064618) SQ EPITH (test code = HPF 5287891076) Lab Interpretation (test Abnormal code = 07630-2) [facility] [id number] 02:45:00 Test Item Value Reference Interpretation Comments Range TROPONIN I (test 0.002 ng/mL See_Comment [Automated code = 0533227284) message] The system which generated this result [...] biotin. Lab Interpretation Normal (test code = 31326-9) [facility] [id number] 02:45:00 Test Item Value Reference Range Interpretation Comments TROPONIN I (test code = 0.002 ng/mL See_Comment [Au tomated 6346491758) message] The sy stem which generated this result transmitted reference range : <=0.034. The reference range was not used to interpret this result as normal/abnormal . LYNDSAY (test code = LYNDSAY) Lab Interpretation Normal (test code = 64631-0) [facility]-TERMINAL [id number] 02:41:57 Test Item Value Reference Range Interpretation Comments NT-proBNP (test code 169 pg/mL See_Comment H [Autom ated = 4837799679) message] The system which generated this result transmitted reference range : <=125. The reference range was not used to interpret this result as normal/abnormal . LYNDSAY (test code = LYNDSAY) Biotin has been reported to cause a negative bias, interpret results relative to patient's use of biotin. Lab Interpretation Abnormal (test code = 46118-3) [facility] [id number] 02:41:57 Test Item Value Reference Range Interpretation Comments NT-proBNP (test code = 169 pg/mL See_Comment H [Aut omated message] 2306262240) The system [employer] generated this result transmit sherice reference range : <=125. The refe rence range was not u sed to interpret th is result as normal/abnormal . LYNDSAY (test code = LYNDSAY) Lab Interpretation (test Abnormal code = 45811-4) [facility]. METABOLIC PANEL (93073)2021-03-17 02:09:13 Test Item Value Reference Range Interpretation Comments NA (test code = 137 mmol/L 135-145 1070127725) K (test code = 4.2 mmol/L 3.5-5.0 4213730150) CL (test code = 102 mmol/L 98-108 7599939072) CO2 TOTAL (test code = 25 mmol/L 23-31 4147904103) AGAP (test code = 2-16 3026327533) BUN (test code = 18 mg/dL 7-23 5861145986) GLUCOSE (test code = 144 mg/dL 70-110 H 8976518299) CREATININE (test code = 0.77 mg/dL 0.50-1.04 1046134758) TOTAL BILI (test code = 0.4 mg/dL 0.1-1.5 5992632635) CALCIUM (test code = 8.9 mg/dL 8.6-10.6 2259638731) T PROTEIN (test code = 6.8 g/dL 6.3-8.2 9080753169) ALBUMIN (test code = 3.9 g/dL 3.5-5.0 7323800124) ALK PHOS (test code = 84 U/L 34-122 9458164229) ALTv (test code = 13 U/L 5-35 1742-6) AST(SGOT) (test code = 17 U/L 13-40 1069005815) eGFR (test code = mL/min/1.73m2 3429747312) LYNDSAY (test code = LYNSDAY) Association of Glomerular Filtration Rate (GFR) and [...] tests). Lab Interpretation Abnormal (test code = 57494-5) [facility]. METABOLIC PANEL (87914)2021-03-17 02:09:13 Test Item Value Reference Range Interpretation Comments NA (test code = 6798881022) 137 mmol/L 135-145 K (test code = 6377907670) 4.2 mmol/L 3.5-5.0 CL (test code = 0196317337) 102 mmol/L 98-108 CO2 TOTAL (test code = 0928927059) 25 mmol/L 23-31 AGAP (test code = 9880014642) 2-16 BUN (test code = 3407397229) 18 mg/dL 7-23 GLUCOSE (test code = 9201720842) 144 mg/dL 70-110 H CREATININE (test code = 0.77 mg/dL 0.50-1.04 6003610121) TOTAL BILI (test code = 0.4 mg/dL 0.1-1.4 1050486349) CALCIUM (test code = 3770281950) 8.9 mg/dL 8.6-10.6 T PROTEIN (test code = 3641406487) 6.8 g/dL 6.3-8.2 ALBUMIN (test code = 4167761036) 3.9 g/dL 3.5-5.0 ALK PHOS (test code = 1173462065) 84 U/L 34-122 ALTv (test code = 1742-6) 13 U/L 5-35 AST(SGOT) (test code = 3268736965) 17 U/L 13-40 eGFR (test code = 1752825976) mL/min/1.73m2 LYNDSAY (test code = LYNDSAY) Lab Interpretation (test code = Abnormal 09141-5) [facility] WITH [id number] 01:56:33 Test Item Value Reference Range Interpretation [...] (test code = 55.5 fL 39.0-49.9 H 32391-9) RDW-CV (test code = 18.9 % 12.0-15.5 H 788-0) PLT (test code = See_Comment H [Automated 777-3) message] The sy stem which generated this result transmitted reference range : 166 - 358 10*3/ ?L. The reference r zoe was not used to interpret this result as normal/abnormal . MPV (test code = 8.2 fL 9.5-12.9 L 79455-8) NRBC/100 WBC (test See_Comment [Automat ed code = 2358253518) message] The system which generated this result transmitted reference range : 0.0 - 10.0 /100 WBCs. The refer ence range was not u sed to interpret th is result as normal/abnormal . NRBC x10^3 (test code <0.01 See_Comment [Auto mated = 9935865322) message] The s ystem which generated this result transmitted reference range : 10*3/?L. The reference range was not used to interpret this result as normal/abnormal . GRAN MAT (NEUT) % 61.7 % (test code = 770-8) IMM GRAN % (test code 0.80 % = 6670817751) LYMPH % (test code = 28.5 % 736-9) MONO % (test code = 6.3 % 5905-5) EOS % (test code = 1.8 % 713-8) BASO % (test code = 0.9 % 706-2) GRAN MAT x10^3(ANC) 7.31 10*3/uL 1.88-7.09 H (test code = 1164939663) IMM GRAN x10^3 (test 0.09 10*3/uL 0.00-0.06 H code = 3090008142) LYMPH x10^3 (test code 3.38 10*3/uL 1.32-3.29 H = 731-0) MONO x10^3 (test code 0.75 10*3/uL 0.33-0.92 = 742-7) EOS x10^3 (test code = 0.21 10*3/uL 0.03-0.39 711-2) BASO x10^3 (test code 0.11 10*3/uL 0.01-0.07 H = 704-7) Lab Interpretation Abnormal (test code = 04634-1) [facility] WITH [id number] 01:56:33 Test Item Value Reference Range Interpretation Comments WBC (test code = See_Comment H [Automated 0190-2) message] The sy stem which generated this [...] (test code = 55.5 fL 39.0-49.9 H 76221-9) RDW-CV (test code = 18.9 % 12.0-15.5 H 788-0) PLT (test code = See_Comment H [Automated 777-3) message] The sy stem which generated this result transmitted reference range : 166 - 358 10*3/ ?L. The reference r zoe was not used to interpret this result as normal/abnormal . MPV (test code = 8.2 fL 9.5-12.9 L 25938-0) NRBC/100 WBC (test See_Comment [Automat ed code = 4810375744) message] The system which generated this result transmitted reference range : 0.0 - 10.0 /100 WBCs. The refer ence range was not u sed to interpret th is result as normal/abnormal . NRBC x10^3 (test code <0.01 See_Comment [Auto mated = 0297794205) message] The s ystem which generated this result transmitted reference range : 10*3/?L. The reference range was not used to interpret this result as normal/abnormal . GRAN MAT (NEUT) % 61.7 % (test code = 770-8) IMM GRAN % (test code 0.80 % = 9542521767) LYMPH % (test code = 28.5 % 736-9) MONO % (test code = 6.3 % 5905-5) EOS % (test code = 1.8 % 713-8) BASO % (test code = 0.9 % 706-2) GRAN MAT x10^3(ANC) 7.31 10*3/uL 1.88-7.09 H (test code = 1420856256) IMM GRAN x10^3 (test 0.09 10*3/uL 0.00-0.06 H code = 6049850684) LYMPH x10^3 (test code 3.38 10*3/uL 1.32-3.29 H = 731-0) MONO x10^3 (test code 0.75 10*3/uL 0.33-0.92 = 742-7) EOS x10^3 (test code = 0.21 10*3/uL 0.03-0.39 711-2) BASO x10^3 (test code 0.11 10*3/uL 0.01-0.07 H = 704-7) Lab Interpretation Abnormal (test code = 66609-8) [facility]-19 (ID NOW RAPID TESTING)2021-03-17 01:38:12 Test Item Value Reference Range Interpretation Comments SARS-CoV-2 Rapid ID NOW Not Detected Not Detected (test code = 30368-4) LYNDSAY (test code = LYNDSAY) ID NOW COVID-19 Assay is an isothermal nucleic acid amplification test intended for the qualitative detection of nucleic acid from SARS-CoV-2 viral RNA in nasopharyngeal (TRANSPORTATION MAINTENANCE OPERATOR) specimens. It is used under Emergency Use [...] indicated. Lab Interpretation Normal (test code = 27894-9) [facility]-19 (ID NOW RAPID TESTING)2021-03-17 01:38:12 Test Item Value Reference Range Interpretation Comments SARS-CoV-2 Rapid ID NOW (test Not Detected Not Detected code = 68909-8) LYNDSAY (test code = LYNDSAY) Lab Interpretation (test code = Normal 89788-2) [facility]ID [facility])2021-02-19 17:42:45 Test Item Value Reference Range Interpretation Comments SARS-CoV-2 Rapid ID NOW Not Detected Not Detected (test code = 59094-9) LYNDSAY (test code = LYNDSAY) ID NOW COVID-19 Assay is an isothermal nucleic acid amplification test intended for the qualitative detection of nucleic acid from SARS-CoV-2 viral RNA in nasopharyngeal (TRANSPORTATION MAINTENANCE OPERATOR) specimens. It is used under Emergency Use [...] indicated. Lab Interpretation Normal (test code = 29622-2) [facility] W [id number] 17:24:55Thickening of the gastric antrum and duodenal [...] 12:26 PM CDT [facility] 1970 51 [facility] EXAMINATION: CT ABDOMEN [...] nodularity of the left adrenal gland.RL: 8722 General acute hospital RirjaoUtkohsnwdd2753-79-77 17:03:40 Test Item Value Reference Range Interpretation Comments APPEARANCE (test code = Hazy Clear A 2187347484) COLOR (test code = Mabel Yellow A 8389993279) PH (test code = 4.8-8.0 9929167342) SP GRAVITY (test code = 1.003-1.030 H 3684314333) GLU U QUAL (test code = Normal Normal 1448849475) BLOOD (test code = Negative Negative 8711370676) KETONES (test code = 5 mg/dL Negative A 2334502298) PROTEIN (test code = 30 mg/dL Negative A 2887-8) UROBILIN (test code = 4.0 mg/dL Normal A 5855583278) BILIRUBIN (test code = 4 mg/dL Negative A 1801236318) NITRITE (test code = Negative Negative 2248416399) LEUK GRUPO (test code = Negative Negative 9713604940) RBC/HPF (test code = See_Comment H [Autom ated message] 5503693964) The system [employer] generated this result transmit sherice reference range : 0 - 3 HPF. The refe rence range was not u sed to interpret th is result as normal/abnormal . WBC/HPF (test code = See_Comment H [Autom ated message] 8668837285) The system [employer] generated this result transmit sherice reference range : 0 - 5 HPF. The refe rence range was not u sed to interpret th is result as normal/abnormal . BACTERIA (test code = Few Negative A 2105087688) MUCOUS (test code = Moderate Negative LPF A 5914832481) SQ EPITH (test code = HPF 0992940093) CA OXALATE (test code = See_Comment H [Au tomated message] 9397905379) The system [employer] generated this result transmit sherice reference range : <=1 HPF. The refere nce range was not u sed to interpret th is result as normal/abnormal . Ictotest (test code = Negative 4334719232) Lab Interpretation (test Abnormal code = 74216-1) [facility] CenterComplete Metabolic [id number] 16:34:55 Test Item Value Reference Range Interpretation Comments NA (test code = 139 mmol/L 135-145 9267087952) K (test code = 4.3 mmol/L 3.5-5.0 9101516034) CL (test code = 105 mmol/L 98-108 5949888386) CO2 TOTAL (test code 26 mmol/L 23-31 = 6613351465) AGAP (test code = 2-16 6996955482) BUN (test code = 11 mg/dL 7-23 3292922480) GLUCOSE (test code = 95 mg/dL 70-110 5331782388) CREATININE (test code 0.70 mg/dL 0.50-1.04 = 9014145317) TOTAL BILI (test code 0.6 mg/dL 0.1-1.1 = 4201271586) CALCIUM (test code = 8.9 mg/dL 8.6-10.6 7841222073) T PROTEIN (test code 7.7 g/dL 6.3-8.2 = 2102066763) ALBUMIN (test code = 4.1 g/dL 3.5-5.0 5864606008) ALK PHOS (test code = 79 U/L 34-122 9559482137) ALTv (test code = 10 U/L 5-35 1742-6) AST(SGOT) (test code 22 U/L 13-40 = 2012053769) eGFR (test code = mL/min/1.73m2 1990326444) LYNDSAY (test code = LYDNSAY) Association of Glomerular Filtration Rate (GFR) and [...] in imaging tests). [facility] CenterLipase, [id number] 16:34:14 Test Item Value Reference Range Interpretation Comments LIPASE (test code = 6694091891) 45 U/L 0-220 Lab Interpretation (test code = Normal 29615-3) [facility] CenterCB with [id number] 16:21:12 Test Item Value Reference Range Interpretation Comments WBC (test code = See_Comment [Automated 1973-2) message] The sy stem which generated this result transmitted reference range : 4.30 - 11.10 10*3/?L. The reference range was not used to interpret this result as normal/abnormal . RBC (test code = See_Comment [Automated 558-) message] The sy stem which generated this [...] (test code = 54.4 fL 39.0-49.9 H 69366-8) RDW-CV (test code = 18.3 % 12.0-15.5 H 788-0) PLT (test code = See_Comment H [Automated 777-3) message] The sy stem which generated this result transmitted reference range : 166 - 358 10*3/ ?L. The reference r zoe was not used to interpret this result as normal/abnormal . MPV (test code = 8.5 fL 9.5-12.9 L 77068-4) NRBC/100 WBC (test See_Comment [Automat ed code = 1468007062) message] The system which generated this result transmitted reference range : 0.0 - 10.0 /100 WBCs. The refer ence range was not u sed to interpret th is result as normal/abnormal . NRBC x10^3 (test code <0.01 See_Comment [Auto mated = 9161454411) message] The s ystem which generated this result transmitted reference range : 10*3/?L. The reference range was not used to interpret this result as normal/abnormal . GRAN MAT (NEUT) % 78.3 % (test code = 770-8) IMM GRAN % (test code 0.40 % = 5664707988) LYMPH % (test code = 15.4 % 736-9) MONO % (test code = 4.8 % 5905-5) EOS % (test code = 0.1 % 713-8) BASO % (test code = 1.0 % 706-2) GRAN MAT x10^3(ANC) 7.15 10*3/uL 1.88-7.09 H (test code = 0660034540) IMM GRAN x10^3 (test 0.04 10*3/uL 0.00-0.06 code = 6620767155) LYMPH x10^3 (test code 1.41 10*3/uL 1.32-3.29 = 731-0) MONO x10^3 (test code 0.44 10*3/uL 0.33-0.92 = 742-7) EOS x10^3 (test code = <0.03 0.03-0.39 L 711-2) BASO x10^3 (test code 0.09 10*3/uL 0.01-0.07 H = 704-7) Lab Interpretation Abnormal (test code = 98637-2) [facility]"
[2021-12-27] MEDS ORDERED: LEVETIRACETAM 500 MG/5 ML VIAL IV ONE (21:55)
[2021-12-27] MEDS ORDERED: ACETAMINOPHEN 325 MG TABLET ONE (21:55)
[2021-12-27] MEDS ORDERED: ONDANSETRON 4 MG/2 ML VIAL ONE (21:56)
[2021-12-27] MEDS ORDERED: NA CHLORIDE 0.9% 100 ML ONE (21:56)
[2021-12-27] MEDS ORDERED: NA CHLORIDE 0.9% 1,000 ML ONE (21:56)
[2021-12-27 22:25] LABS: Absolute Lymphocytes (CBC) 3.2 K/uL (0.7-4.9); Hematocrit 39.7 % (36.0-45.0); Lymphocytes % 25.5 % (15.3-44.8); MPV 6.2 fL (7.6-11.3); RBC Red Blood Cell Count 4.61 M/uL (3.86-4.86)
[2021-12-27 22:48] LABS: Protime INR 0.99
[2021-12-27 23:04] LABS: Urine Blood 2+ (Negative); Urine Glucose Negative (Negative); Urine Protein Negative (Negative)
[2021-12-27 23:31] LABS: Barbiturates NEGATIVE (NEGATIVE); Benzodiazepines NEGATIVE (NEGATIVE); Cocaine POSITIVE (NEGATIVE); METHAMPHETAM NEGATIVE (NEGATIVE); Methadone NEGATIVE (NEGATIVE); Opiates NEGATIVE (NEGATIVE); Phencyclidine NEGATIVE (NEGATIVE); THC Cannibis NEGATIVE (NEGATIVE)
[2021-12-27 23:39] LABS: Albumin 3.9 g/dL (3.4-5.0); Alkaline Phosphatase 125 U/L (45-117); BUN Blood Urea Nitrogen 10 mg/dL (7-18); Bicarbonate 19 mmol/L (21-32); Bilirubin Total 0.2 mg/dL (0.2-1.0); Glomerular Filtration Rate 88 ml/min (=/>90); Glucose Level 87 mg/dL (74-106); Potassium 3.6 mmol/L (3.5-5.1); Protein, Total 7.8 g/dL (6.4-8.2); Sodium Level 140 mmol/L (136-145)
[2021-12-27 23:40] LABS: Bilirubin Direct < 0.1 mg/dL (0-0.2)
[2021-12-28] MEDS ORDERED: CEFTRIAXONE 1000 MG/VIAL ONE (00:03)
[2021-12-28 01:55] LABS: ALT/SGPT 22 U/L (12-78); AST/SGOT 23 U/L (15-37)
--- NOTE | 2021-12-28 02:32 | ER ---
Nurse's Notes [facility] Name: Heather Coon Age: 51 yrs Sex: Female : 1970 Arrival Date: 12/27/2021 Time: 21:19 Bed 20 Private MD: Diagnosis: Other seizures;Cocaine abuse;Influenza;UTI/ Urinary tract infection, site not specified;Alcohol use, unspecified Presentation: 12/27 21:10 Chief complaint: EMS states: EMS report patient having seizure activity x4 lasting 23 ag7 seconds, with vomiting after each seizure. Coronavirus screen: Client denies travel out of the [place] in the last 14 days. At this time, the client does not indicate any symptoms associated with coronavirus-19. Ebola Screen: Patient negative for fever greater than or equal to 101.5 degrees Fahrenheit, and additional compatible Ebola Virus Disease symptoms Patient denies exposure to infectious person. Patient denies travel to an Ebola-affected area in the 21 days before illness onset. Initial Sepsis Screen: Does the patient meet any 2 criteria? No. Patient's initial sepsis screen is negative. Does the patient have a suspected source of infection? No. Patient's initial sepsis screen is negative. Risk Assessment: Do you want to hurt yourself or someone else? Patient reports no desire to harm self or others. Onset of symptoms was December 27, 2021. Care prior to arrival: None. Activity prior to arrival: seizure. 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 - Social history:: Smoking status: Patient reports the use of cigarette tobacco products, unknown amount Patient uses alcohol. Screenin:44 Abuse screen: Denies threats or abuse. Nutritional screening: No deficits noted. ag7 Tuberculosis screening: No symptoms or risk factors identified. Fall Risk No fall in past 12 months (0 pts). Secondary diagnosis (15 points) seizures, TIA, IV access (20 points). Ambulatory Aid- None/Bed Rest/Nurse Assist (0 pts). Gait- Normal/Bed Rest/Wheelchair (0 pts) Mental Status- Oriented to own ability (0 pts). Total Costello Fall Scale indicates High Risk Score (45 or more points). Fall prevention measures have been instituted. Side Rails Up X 2 Placed Close to Nursing Station Frequent Obs/Assessments Occuring Family Present and informed to notify staff if the need to leave the bedside As available patient and family educated on Fall Prevention Program and Strategies. Assessment: 21:39 General: Appears in no apparent distress. Behavior is cooperative. Pain: Denies pain. ag7 Neuro: Level of Consciousness is lethargic, Oriented to person, place, time, situation, Appropriate for age Chili Maker are equal bilaterally Moves all extremities. Pupils are. Neuro: Level of Consciousness is Oriented to Chili Maker are Pupils are sluggish, brief post unconscious, vomiting after seizure activity, seizure activity lasting x 20 secs, left eye sensitive to pen light. Cardiovascular: Heart tones S1 S2 present Patient's skin is warm and dry. Respiratory: Airway is patent Trachea midline Respiratory effort is even, unlabored, Respiratory pattern is regular, symmetrical, Breath sounds with rhonchi bilaterally. 22:27 Reassessment: Patient off the floor for CT. ag7 22:40 Reassessment: Patient return from CT at or around 2240. ag7 23:00 Reassessment: Patient and/or family updated on plan of care and expected duration. Pain ag7 level reassessed. Patient is alert, oriented x 3, equal unlabored respirations, skin warm/dry/pink. no seizure activity noted Patient denies pain at this time. Patient states feeling better. Patient states symptoms have improved. 12/28 00:00 Reassessment: no seizure activity assessed. ag7 02:16 Reassessment: Patient and/or family updated on plan of care and expected duration. Pain ag7 level reassessed. Patient is alert, oriented x 3, equal unlabored respirations, skin warm/dry/pink. Patient denies pain at this time. Patient states feeling better. Patient states symptoms have improved. Neuro: Level of Consciousness is awake, alert, obeys commands, Oriented to Appropriate for age Pupils are right eye reactive to light and accommodation, left eye sensitive to light and sluggish. Vital Signs: 12/27 21:10 BP 179 / 101; Pulse 102; Resp 23 S; Temp 100.6; Pulse Ox 98% ; Weight 82.1 kg; Height 5 ag7 ft. 3 in. (160.02 cm); Pain 0/10; 22:00 BP 159 / 125; Pulse 99; Resp 23 S; Pulse Ox 97% on R/A; Pain 0/10; ag7 21:10 Body Mass Index 32.06 (82.10 kg, 160.02 cm) ag7 ED Course: 21:19 Patient arrived in ED. vc1 21:24 Fazal Frey MD is Attending Physician. mh7 21:28 Geno Urena, BETH is Primary Nurse. ag7 21:31 Inserted saline lock: 20 gauge in right forearm, using aseptic technique. ke1 21:37 Triage completed. ag7 21:45 Arm band placed on right wrist. ag7 21:45 Patient has correct armband on for positive identification. Placed in gown. Bed in low ag7 position. Call light in reach. Side rails up X2. Adult w/ patient. Seizure precautions initiated. 22:09 Rapid Strep Sent. ag7 22:09 Influenza Screen (a \\T\\ B) Sent. ag7 22:09 COVID-19 SARS RT PCR (Document "Date of Onset" if Symptomatic) Sent. ag7 22:38 CT Head Brain wo Cont In Process Unspecified. EDMS 22:45 Chest Single View XRAY In Process Unspecified. EDMS 23:09 Lactate Sent. ag7 23:09 Rapid Strep Sent. ag7 23:09 Influenza Screen (a \\T\\ B) Sent. ag7 23:09 COVID-19 SARS RT PCR (Document "Date of Onset" if Symptomatic) Sent. ag7 23:54 Urine Microscopic Only Sent. ag7 23:54 Urine Culture Sent. ag7 23:55 Throat Culture Sent. ag7 12/28 02:33 Javier Ireland MD is Referral Physician. 7 02:51 No provider procedures requiring assistance completed. IV discontinued, intact, vc1 bleeding controlled, No redness/swelling at site. Pressure dressing applied. Administered Medications: 12/27 21:55 Drug: Tylenol 650 mg Route: PO; ag7 21:55 Drug: NS 0.9% 1000 ml Route: IV; Rate: 1000 ml; Site: right forearm; ag7 21:55 Drug: Zofran (Ondansetron) 4 mg Route: IVP; Site: right forearm; ag7 21:55 Drug: Keppra (levETIRAcetam) 1000 mg Route: IV; Rate: per protocol; Site: right forearm;ag7 22:18 Follow up: IV Status: Completed infusion; IV Intake: 100ml ag7 12/28 00:07 Drug: Rocephin (cefTRIAXone) 1 grams Route: IV; Rate: per protocol; Site: right forearm;ag7 02:30 Drug: Tamiflu (oseltamivir) 75 mg Route: PO; ag7 Medication: 12/27 21:45 VIS not applicable for this client. ag7 Intake: 22:18 IV: 100ml; Total: 100ml. 7 Outcome: 12/28 02:31 Discharge ordered by . [facility] 02:51 Discharged to home via wheelchair, with significant other. vc1 02:51 Condition: good 02:51 Discharge instructions given to patient, significant other, Instructed on discharge instructions, follow up and referral plans. medication usage, Demonstrated understanding of instructions, follow-up care, medications, Prescriptions given X 3. 02:51 Patient left the ED. vc1 Signatures: Dispatcher [employer] EDMS Fazal Frey MD MD 7 Deepali Curry RN RN vc1 Baltazar Mcbride RN RN 1 Geno Urena RN RN 7 Corrections: (The following items were deleted from the chart) 00:08 06 21:55 Keppra (levETIRAcetam) 1000 mg IV at per protocol in right antecubital ag7 ag7 12/28 00:08 12/27 21:55 Zofran (Ondansetron) 4 mg IVP in right antecubital ag7 ag7 12/28 00:08 06 21:55 NS 0.9% 1000 ml IV at 1000 ml in right antecubital ag7 ag7
--- NOTE | 2021-12-28 02:32 | EDPHYS ---
Physician Documentation [facility] Name: Heather Coon Age: 51 yrs Sex: Female : 1970 Arrival Date: 12/27/2021 Time: 21:19 Bed 20 Private MD: ED Physician Fazal Frey HPI: 12/27 21:30 This 51 yrs old Female presents to ER via EMS with complaints of Seizure. mh7 21:30 The patient presents with a history of multiple seizures, a total of 4. mh7 21:30 Character of seizure(s): Loss of consciousness: the patient experienced loss of mh7 consciousness, brief, Motor activity: generalized, shaking all over, Incontinence: none, Apnea: the patient did not experience apnea, Circulation: the patient did not experience evidence of pulse disturbance, Eye movements: are unknown. Seizure onset: today. Context: the seizure(s) was witnessed, by a significant other, , occurred at a friend's home, occurred while the patient was sitting, Contributing factors: recent alcohol abuse. Seizure Hx: Original onset: longstanding. Associated injury: The patient did not suffer any apparent associated injury. 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 - Social history:: Smoking status: Patient reports the use of cigarette tobacco products, unknown amount Patient uses alcohol. ROS: 21:30 Constitutional: Negative for fever, chills, and weight loss, Eyes: Negative for injury, mh7 pain, redness, and discharge, ENT: Negative for injury, pain, and discharge, Neck: Negative for injury, pain, and swelling, Cardiovascular: Negative for chest pain, palpitations, and edema, Respiratory: Negative for shortness of breath, cough, wheezing, and pleuritic chest pain, Abdomen/GI: Negative for abdominal pain, nausea, vomiting, diarrhea, and constipation, Back: Negative for injury and pain, : Negative for injury, bleeding, discharge, and swelling, MS/Extremity: Negative for injury and deformity, Skin: Negative for injury, rash, and discoloration, Psych: Negative for depression, anxiety, suicide ideation, homicidal ideation, and hallucinations, Allergy/Immunology: Negative for hives, rash, and allergies, Endocrine: Negative for neck swelling, polydipsia, polyuria, polyphagia, and marked weight changes, Hematologic/Lymphatic: Negative for swollen nodes, abnormal bleeding, and unusual bruising. Exam: 21:30 Head/Face: Normocephalic, atraumatic. Eyes: Pupils equal round and reactive to light, mh7 extra-ocular motions intact. Lids and lashes normal. Conjunctiva and sclera are non-icteric and not injected. Cornea within normal limits. Periorbital areas with no swelling, redness, or edema. Neck: Trachea midline, no thyromegaly or masses palpated, and no cervical lymphadenopathy. Supple, full range of motion without nuchal rigidity, or vertebral point tenderness. No Meningismus. Chest/axilla: Normal chest wall appearance and motion. Nontender with no deformity. No lesions are appreciated. Respiratory: Lungs have equal breath sounds bilaterally, clear to auscultation and percussion. No rales, rhonchi or wheezes noted. No increased work of breathing, no retractions or nasal flaring. Abdomen/GI: Soft, non-tender, with normal bowel sounds. No distension or tympany. No guarding or rebound. No evidence of tenderness throughout. Back: No spinal tenderness. No costovertebral tenderness. Full range of motion. 21:30 Skin: Warm, dry with normal turgor. Normal color with no rashes, no lesions, and no evidence of cellulitis. MS/ Extremity: Pulses equal, no cyanosis. Neurovascular intact. Full, normal range of motion. Neuro: Awake and alert, GCS 15, oriented to person, place, time, and situation. Cranial nerves II-XII grossly intact. Motor strength 5/5 in all extremities. Sensory grossly intact. Cerebellar exam normal. Normal gait. Psych: Awake, alert, with orientation to person, place and time. Behavior, mood, and affect are within normal limits. 21:30 Constitutional: The patient appears in no acute distress, alert, awake, uncomfortable. 21:30 Cardiovascular: Rate: tachycardic, Rhythm: regular, Pulses: no pulse deficits are appreciated, Heart sounds: normal, normal S1and S2, Edema: is not appreciated, JVD: is not appreciated. Vital Signs: 21:10 BP 179 / 101; Pulse 102; Resp 23 S; Temp 100.6; Pulse Ox 98% ; Weight 82.1 kg; Height 5 [facility] ft. 3 in. (160.02 cm); Pain 0/10; 22:00 BP 159 / 125; Pulse 99; Resp 23 S; Pulse Ox 97% on R/A; Pain 0/10; ag7 21:10 Body Mass Index 32.06 (82.10 kg, 160.02 cm) [facility] MDM: 12/28 02:26 Differential diagnosis: drug overdose, cardiac arrhythmia, seizure. Data reviewed: [facility] vital signs, nurses notes, EMS record, old medical records, lab test result(s), cardiac enzymes, CBC, drug level(s), acetaminophen, alcohol, salicylate, electrolytes, Flu: positive urinalysis, EKG, radiologic studies, CT scan, plain films. Data interpreted: Pulse oximetry: on room air is 97 %. Interpretation: normal. Counseling: I had a detailed discussion with the patient and/or guardian regarding: the historical points, exam findings, and any diagnostic results supporting the discharge/admit diagnosis, the presence of at least one elevated blood pressure reading (>120/80) during this emergency department visit, lab results, radiology results, the need for outpatient follow up, to return to the emergency department if symptoms worsen or persist or if there are any questions or concerns that arise at home. Response to treatment: the patient's symptoms have resolved after treatment, the patient's blood pressure is in an acceptable range, mental status has returned to baseline, the patient no longer shows bradycardia, the patient is not short of breath, the patient is not tachycardic, the patient's pain is gone, the patient's temperature has normalized. 02:31 Patient medically screened. [facility] 12/27 21:43 Order name: Acetaminophen; Complete Time: 02:15 [facility] 12/27 20:43 Order name: Basic Metabolic Panel; Complete Time: 02:15 [facility] 12/27 21:43 Order name: CBC with Diff; Complete Time: 23:51 [facility] 12/27 21:43 Order name: ETOH Level; Complete Time: 23:51 [facility] 12/27 21:43 Order name: Hepatic Function; Complete Time: 02:15 [facility] 12/27 21:43 Order name: PT-INR; Complete Time: 23:51 [facility] 12/27 21:43 Order name: Ptt, Activated; Complete Time: 23:51 [facility] 12/27 21:43 Order name: Salicylate; Complete Time: 23:51 [facility] 12/27 21:43 Order name: Urine Drug Screen; Complete Time: 23:51 [facility] 12/27 21:43 Order name: Blood Culture Adult (2) [facility] 12/27 21:43 Order name: COVID-19 SARS RT PCR (Document "Date of Onset" if Symptomatic); Complete [facility] Time: 23:51 12/27 21:43 Order name: Influenza Screen (a \\T\\ B); Complete Time: 23:51 [facility] 12/27 21:43 Order name: Rapid Strep; Complete Time: 23:51 [facility] 12/27 21:43 Order name: Lactate; Complete Time: 23:51 [facility] 12/27 21:43 Order name: EKG; Complete Time: 21:45 [facility] 12/27 21:43 Order name: Chest Single View XRAY [facility] 12/27 21:43 Order name: CT Head Brain wo Cont [facility] 12/27 22:11 Order name: Troponin High Sensitivity; Complete Time: 02:15 [facility] 12/27 23:05 Order name: Urine Dipstick-Ancillary; Complete Time: 23:51 [facility] 12/27 23:09 Order name: Urine --Ancillary (enter results); Complete Time: 23:51 [facility] 12/27 23:30 Order name: Throat Culture [facility] 12/28 00:42 Order name: CPK; Complete Time: 02:15 [facility] 12/27 21:43 Order name: EKG - Nurse/Tech; Complete Time: 22:06 [facility] 12/27 21:43 Order name: IV Saline Lock; Complete Time: 22:06 [facility] 12/27 21:43 Order name: Labs collected and sent; Complete Time: 22:06 [facility] 12/27 21:43 Order name: Suicide Screening (Interior); Complete Time: 22:06 [facility] 12/27 21:43 Order name: Urine Dipstick-Ancillary (obtain specimen); Complete Time: 23:09 [facility] 12/27 21:43 Order name: Urine Test (obtain specimen); Complete Time: 23:09 [facility] Administered Medications: 12/27 21:55 Drug: Tylenol 650 mg Route: PO; ag7 21:55 Drug: NS 0.9% 1000 ml Route: IV; Rate: 1000 ml; Site: right forearm; 7 21:55 Drug: Zofran (Ondansetron) 4 mg Route: IVP; Site: right forearm; 7 21:55 Drug: Keppra (levETIRAcetam) 1000 mg Route: IV; Rate: per protocol; Site: right forearm;7 22:18 Follow up: IV Status: Completed infusion; IV Intake: 100ml [facility] 12/28 00:07 Drug: Rocephin (cefTRIAXone) 1 grams Route: IV; Rate: per protocol; Site: right forearm;7 02:30 Drug: Tamiflu (oseltamivir) 75 mg Route: PO; [facility] Disposition Summary: 12/28/21 02:31 Discharge Ordered Location: Home [facility] Problem: an acute exacerbation [facility] Symptoms: have improved [facility] Condition: Stable [facility] Diagnosis - Other seizures 7 - Cocaine abuse 7 - Influenza 7 - UTI/ Urinary tract infection, site not specified 7 - Alcohol use, unspecified [facility] Followup: [facility] - With: Private Physician - When: 1 - 2 days - Reason: Worsening of condition, Recheck today's complaints, Continuance of care, Re-evaluation by your physician Followup: [facility] - With: Javier Ireland MD - When: 1 - 2 days - Reason: Worsening of condition, Recheck today's complaints Discharge Instructions: - Discharge Summary Sheet 7 - Cocaine Use Disorder 7 - Urinary Tract Infection, Adult, [id number] 7 - Seizure, Adult, Wxko-[id number] mh7 - Influenza, Adult, Akfe-am-Aawt [facility] Forms: - Medication Reconciliation Form 7 - Thank You Letter 7 - Antibiotic Education 7 - Prescription Opioid Use [facility] Prescriptions: - ondansetron 4 mg Oral tablet,disintegrating - place 1 tablet by TRANSLINGUAL route every 8 hours As needed; 10 tablet; 7 Refills: 0, Product Selection Permitted - Cephalexin 500 mg Oral Capsule - take 1 capsule by ORAL route every 12 hours for 10 days; 20 capsule; Refills: mh 0, Product Selection Permitted - Tamiflu 75 mg Oral Capsule - take 1 tablet by ORAL route every 12 hours for 5 days; 9 tablet; Refills: 0, 7 Product Selection Permitted Signatures: Dispatcher [employer] Fazal Mcintosh MD MD 7 Geno Urena RN RN 7
[2021-12-28] MEDS ORDERED: OSELTAMIVIR 75 MG CAP ONE (02:35)
[2021-12-28 03:04] VITALS: TEMP 100.6
[2021-12-28 03:31] VITALS: BP 159/125; O2SAT 97
--- NOTE | 2021-12-28 09:12 | EKG ---
Test Date: 2021-12-27 Test Time: 21:20:14 Vocational Ed Instructor: RIRI MEASUREMENT RESULTS: Intervals: Rate: 107 VA: 146 QRSD: 82 QT: 348 QTc: 464 [place]: P: 260 VA: 146 QRS: 145 T: 36 INTERPRETIVE STATEMENTS: Unusual P axis, possible ectopic atrial tachycardia Right axis deviation Abnormal ECG Compared to ECG 12/13/2021 13:39:42 Sinus rhythm no longer present T-wave abnormality no longer present Electronically Signed On 12-28-21 09:10:37 CDT by Migel Warren
--- NOTE | 2021-12-29 17:17 | RAD REPORT ---
EXAM DESCRIPTION: RAD - Chest Single View - 12/27/2021 10:44 pm CLINICAL HISTORY: 51 years, Female, Cough COMPARISON: 12/09/2021. FINDINGS: Single view of the chest was obtained portable. Prior films were compared. External EKG le ads within the [id number] limits diagnosis. The cardiomediastinal silhouette demonstrate to be u nremarkable. The heart is not enlarged. The thoracic aorta is mildly tortuous. Costophrenic angles ar e sharp. No areas of consolidation or masses are seen. Fixation device lower cervical spine. The rest of the soft tissue and bony structures demonstrate to be unremarkable. IMPRESSION: NO ACUTE CARDIOPULMONARY DISEASE SEEN. Electronically signed by: Cuong Shepherd MD 12/27/2021 11:18 PM CDT Due to temporary technical issues with the PACS/Fluency reporting system, reports are being signed by the in house radiologists without review as a courtesy to insure prompt reporting. The interpreting radiologist is fully responsible for the content of the report.
--- NOTE | 2021-12-30 11:28 | RAD REPORT ---
EXAM DESCRIPTION: CT - Head Brain Wo Cont - 12/28/2021 7:26 am CLINICAL HISTORY: 51 years, Female, Seizure disorder, no clinical change COMPARISON: 12/15/2021. FINDINGS: Multiple transaxial tomograms of the brain were obtained from the base of the skull to the vertex without contrast. 2-D multiplanar reformats and the coronal and sagittal plane were performed and reviewed. This exam was performed according to our departmental dose-optimization protocol, which includes auto mated exposure control, adjustment of the mA and/or kV according to patient size and/or use of iterat ketty reconstruction technique. Brain parenchyma as well as the de la fuente and white matter differentiation demonstrate to be unremarkable. There is no midline shift and/or mass effect. There is no evidence for acute hemorrhage. No focal ar eas of hypodensities. Lateral ventricles and cisterns displace normal appearance. No intra or ext ra axial fluid collections were seen. The calvarium is intact with no evidence for fracture. The visu alized portions of the paranasal sinuses and orbits demonstrate to be clear. IMPRESSION: No acute intracranial hemorrhage identified. No significant interval change. Electronically signed by: Cuong Shepherd MD 12/27/2021 11:17 PM CDT Due to temporary technical issues with the PACS/Fluency reporting system, reports are being signed by the in house radiologist without review as a courtesy to ensure prompt reporting. The interpreting r adiologist is fully responsible for the content of the report.
== END 2021-12-28 02:51 | disposition home or self-care (01) ==
LOC: ER 21:07
DX: G40.89 Other seizures (principal); F14.10 Cocaine abuse, uncomplicated; N39.0 Urinary tract infection, site not specified; J11.1 Influenza due to unidentified influenza virus with other respiratory manifestations; Z72.89 Other problems related to lifestyle; F31.9 Bipolar disorder, unspecified; I10 Essential (primary) hypertension; Z85.41 Personal history of malignant neoplasm of cervix uteri; Z72.0 Tobacco use; Z88.8 Allergy status to other drugs, medicaments and biological substances; Z91.018 Allergy to other foods
CPT/HCPCS: 36415; 70450; 71045; 80048; 80076; 80307; 80320; 80329; 81003; 81025; 82550; 83605; 84484; 85025; 85610; 85730; 87040; 87070; 87077; 87081; 87186; 87205; 87804; 93005; 96365; 96375; 99284; J1953; J2405; J7030; U0003

== ENCOUNTER 2022-03-04 00:01 | Emergency (ER) | payer SELFPAY ==
--- OUTSIDE RECORDS SUMMARY | 2022-03-04 00:09 | XMS REPORT | Continuity of Care Document ---
:1970 Author Organization [facility] t Address [address] [place] [address] Care Team Providers Name Role Phone Pcp, Patient Does Not Have A Primary Care Physician +[id number] Vaccine, Chung Esteban Pedi Attending Clinician Unavailable Shilpa Frederick MD Attending Clinician SHILPA FREDERICK Attending Clinician Unavailable NICHELLE ALLISON Attending Clinician Unavailable Sav Rondon MD Attending Clinician Nichelle Bishop Attending Clinician Doctor Unassigned, [place] Attending Clinician Unavailable Miky Nava RN Attending Clinician Unavailable Fabrice Gordillo Attending Clinician Lydia Eaton Attending Clinician Unknown, Attending Attending Clinician Unavailable UNKNOWN, ATTENDING Attending Clinician Unavailable Anali Rascon Attending Clinician Yehuda Arcos MD Attending Clinician NICHELLE ALLISON Admitting Clinician Unavailable Payers Payer Name Policy Type Policy Number Effective Date Expiration Date S ource MEDICAID PENDING PENDING 2021 00:00:00 Problems Condition [...] nivers d low back d low back 09-27 it [place] of [place] sci[place], 00 Medi kwame sciatica sciatica Branch laterality laterality unspecifie unspecifie d d Generalize Generalize Disease Active U nivers d anxiety d anxiety 09-27 ity of disorder disorder 00:00: [place] [facility] Agoraphobi Agoraphobi Disease Active U nivers a a 09-27 ity of 00:00: [place] 00 Medical Branch Bipolar Bipolar Disease Active Univers disorder, disorder, 09-27 [place] remission, remission, 00 Me dical most most Branch recent recent episode episode manic manic 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 3 it y of disorder disorder 00:00: [place] [facility] Breast Breast Disease Active Univers mass, left mass, left 3 it y of 00:00: [place] [facility] Anxiety Anxiety Disease Active Univers 3 ity of 00:00: [place] [facility] Lower back Lower back Disease [...] Disease Active Univers 3 ity of 00:00: [place] 00 Medical Branch [...] Propensi Active Hypertension Univers ac ty to 504 ity of adverse 00:00: [place] reaction 00 Medical s Branch GREEN DRUG Active Med Other-Cmnt Univer s TEA INGREDI 1- ity of 00:00: [place] 00 Medical Branch Green Propensi Active Other - See Seizures U nivers Tea ty to comments 1-22 ity of adverse 00:00: [place] reaction 00 Medical s to Branch drug FLUOXETI DRUG Active Hives Univers NE HCL INGREDI 8- ity of 00:00: [place] 00 Medical Branch Fluoxeti Propensi Active Hives Univer s ne Hcl ty to 8-31 ity of adverse 00:00: [place] reaction 00 Medical s Branch Social History Social Habit Start Date Stop Date Quantity Comments Source History of tobacco Cigar Smoker Univ ersity of use [facility] Exposure to 2021-11-13 2021-11-23 Not sure [facility] SARS-CoV-2 (event) 00:00:00 15:13:00 [facility] Alcohol intake 2021-11-23 2021-11-23 0 /d University of 00:00:00 00:00:00 [facility] Cigarettes smoked 2015-11-21 2015-11-21 Univers ity of current (pack per 00:00:00 00:00:00 [place] ) - Reported Branch Cigarette 2015-11-21 2015-11-21 University of pack-years 00:00:00 00:00:00 [facility] Tobacco use and 2015-11-21 2015-11-21 Smokeless Universit y of exposure 00:00:00 00:00:00 tobacco non-user [facility] [place] Sex Assigned At [birth year] [facility] y of 00:00:00 00:00:00 [facility] Smoking Status Start Date Stop Date Source Smokes tobacco daily 2015-11-21 00:00:00 Univers ity of [facility] Medications Ordered Filled Start Stop Current Ordering Indication Dosage Frequency Signature Comments Components Source Medication Medication Date Date Medication? Clinician (SIG) Name Name aspirin Yes 324mg 324 mg, Univer s chewable 08 Oral, ity of tablet 324 14:00: DAILY, [place] mg 00 First dose Medical on [place] Branch 11/24/21 at 0900, Until Discontinu ed, Routine metoclopram No 10mg 10 mg, Uni vers iker HCl 11-23 Slow IV ity of (REGLAN) 22:30: 21:24 Push, [place] injection 00 :00 ONCE, 1 Medical 10 [...] 1500mg 1,500 mg, Univers am (KEPPRA) 11-23 IV ity of in NACL 21:30: 20:47 Piggyback, [place] as (ISO-OS) 00 :00 ONCE, 1 Medical 1,500 dose, On Branch mg/100 mL 11/23/21 RTU at 1630, Administer over 15 Minutes, 100 mL levoFLOXaci 2020- No 500mg 500 mg, U [...] IV ity of succ 01:57: 02:11 Push, [place] (SOLU-MEDRO 00 :00 ONCE, 1 Medic al [...] IV ity of succ 01:57: 02:11 Push, [place] (SOLU-MEDRO 00 :00 ONCE, 1 Medic al L) dose, Sat Branch injection 03/16/21 at 125 mg 2100, STAT ipratropium No 3mL 3 mL, Univ ers -albuteroL 03-17 Inhalation it y of (DUONEB) 01:57: 02:15 , ONCE, 1 [place] 0.5 mg-3 00 :00 dose, Sat Medica l mg(2.5 mg 03/16/21 at Bran ch base)/3 mL 2100, MICHAEL nebulizer solution 3 mL levoFLOXaci No [id number] 500mg Take 1 Univers n 500 mg 03-17 tablet by ity o f tablet 00:00: 04:59 mouth [place] 00 :00 daily for Medical 6 days. Branch levoFLOXaci 2020- No [id number] 500mg Take 1 Univers n 500 mg 03-17 tablet by ity o f tablet 00:00: 04:59 mouth [place] 00 :00 daily for Medical 6 days. Branch levoFLOXaci 2020- No [id number] 500mg Take 1 Univers n 500 mg 03-17 tablet by ity o f tablet 00:00: 04:59 mouth [place] 00 :00 daily for Medical 6 days. Branch levoFLOXaci No [id number] 500mg Take 1 Univers n 500 mg 03-17 tablet by ity o f tablet 00:00: 04:59 mouth [place] 00 :00 daily for Medical 6 days. Branch predniSONE 2020- No [id number] 30mg Take 3 Univers 10 mg 03-17 tablets by ity of tablet 00:00: 04:59 mouth [place] 00 :00 daily for Medical 4 days. [place] predniSONE 2020- No [id number] 30mg Take 3 Univers 10 mg 03-17 tablets by ity of tablet 00:00: 04:59 mouth [place] 00 :00 daily for Medical 4 days. Branch predniSONE 2020- No [id number] 30mg Take 3 Univers 10 mg 03-17 tablets by ity of tablet 00:00: 04:59 mouth [place] 00 :00 daily for Medical 4 days. [place] predniSONE 2020- No [id number] 30mg Take 3 Univers 10 mg 03-17 tablets by ity of tablet 00:00: 04:59 mouth [place] 00 :00 daily for Medical 4 days. [place] albuterol 2020- No [id number] 4{puff} 4 Puff, Univers (VENTOLIN) 03-15 Inhalation it y of inhaler 4 01:45: 00:44 , ONCE, 1 [place] Puff 00 :00 dose, [facility] Medical 03/14/21 at [place] 2044, Routine dexamethaso 2020- No [id number] 10mg 10 mg, Univers ne 03-15 Intramuscu ity of (DECADRON) 01:45: 00:45 lar, ONCE, [place] injection 00 :00 1 dose, Medical 10 mg [facility] 03/14/21 at 5, Routine albuterol Yes [id number] 2.5mg Inhale 3 Univers 2.5 mg /3 8-27 mL every 4 ity of mL (0.083 00:00: (four) [place] %) 00 hours as Medical nebulizer needed for Bran ch solution Wheezing or Shortness of Breath. albuterol Yes [id number] 2.5mg Inhale 3 Univers 2.5 mg /3 8-27 mL every 4 ity of mL (0.083 00:00: (four) [place] %) 00 hours as Medical nebulizer needed for Bran ch solution Wheezing or Shortness of Breath. albuterol 2020-0 Yes [id number] 2.5mg Inhale 3 Univers 2.5 mg /3 8-27 mL every 4 ity of mL (0.083 00:00: (four) [place] %) 00 hours as Medical nebulizer needed for Bran ch solution Wheezing or Shortness of Breath. albuterol 2020-0 Yes [id number] 2.5mg Inhale 3 Univers 2.5 mg /3 8-27 mL every 4 ity of mL (0.083 00:00: (four) [place] %) 00 hours as Medical nebulizer needed for Bran ch solution Wheezing or Shortness of Breath. albuterol 2020-0 Yes [id number] 2.5mg Inhale 3 Univers 2.5 mg /3 8-27 mL every 4 ity of mL (0.083 00:00: (four) [place] %) 00 hours as Medical nebulizer needed for Bran ch solution Wheezing or Shortness of Breath. albuterol 2020-0 Yes [id number] 2.5mg Inhale 3 Univers 2.5 mg /3 8-27 mL every 4 ity of mL (0.083 00:00: (four) [place] %) 00 hours as Medical nebulizer needed for Bran ch solution Wheezing or Shortness of Breath. albuterol 2020-0 Yes [id number] 2.5mg Inhale 3 Univers 2.5 mg /3 8-27 mL every 4 ity of mL (0.083 00:00: (four) [place] %) 00 hours as Medical nebulizer needed for Bran ch solution Wheezing or Shortness of Breath. albuterol 2020-0 Yes [id number] 2.5mg Inhale 3 Univers 2.5 mg /3 8-27 mL every 4 ity of mL (0.083 00:00: (four) [place] %) 00 hours as Medical nebulizer needed for Bran ch solution Wheezing or Shortness of Breath. albuterol 2020-0 Yes [id number] 2.5mg Inhale 3 Univers 2.5 mg /3 8-27 mL every 4 ity of mL (0.083 00:00: (four) [place] %) 00 hours as Medical nebulizer needed for Bran ch solution Wheezing or Shortness of Breath. albuterol Yes [id number] 2.5mg Inhale 3 Univers 2.5 mg /3 8-27 mL every 4 ity of mL (0.083 00:00: (four) [facility]) 00 hours as Medical nebulizer needed for Bran ch solution Wheezing or Shortness of Breath. levETIRAcet 2020- No 1000mg 1,000 mg, Univers am (KEPPRA) 02-19 IV ity of in NACL 20:15: 19:30 [place], [place] (ISO-OS) 00 :00 ONCE, 1 Medical 1,000 dose, Tue Branch mg/100 mL 02/19/21 at RTU 1515, Administer over 15 Minutes, 100 mL levetiracet Yes Take by Uni vers am (KEPPRA 8-03 mouth. ity of ORAL) 19:45: [address] levetiracet Yes Take by Uni vers am (KEPPRA 8-03 mouth. ity of ORAL) 19:45: [address] levetiracet Yes Take by Uni vers am (KEPPRA 8-03 mouth. ity of ORAL) 19:45: [address] levetiracet Yes Take by Uni vers am (KEPPRA 8-03 mouth. ity of ORAL) 19:45: [address] levetiracet Yes Take by Uni vers am (KEPPRA 8-03 mouth. ity of ORAL) 19:45: [address] levetiracet Yes Take by Uni vers am (KEPPRA 8-03 mouth. ity of ORAL) 19:45: [address] LISINOPRIL- 2020- No Take by Un lois HYDROCHLORO 02-19 mouth. ity o f THIAZIDE 19:41: 00:00 [place] ORAL 15 :00 [facility] Branch dicyclomine 2020- No 20mg 20 mg, [...] Tue Medica l NaCl 0.9% 02/19/21 at [facility] h (NS) 50 mL 1415, 50 piggyback [...] at Branch 1200, MICHAEL iopamidol 2020- No [id number] 100mL 100 mL, Univers (ISOVUE 02-19 Intravenou ity o f 370-500 mL) 16:35: 16:45 s, ONCE, 1 [place] injection 00 :00 dose, Tue Medic al 100 mL 02/19/21 at Branch 1145, Routine levetiracet Yes Take by Un lois am (KEPPRA 8-03 mouth. ity of ORAL) 14:45: [address] levetiracet Yes Take by Uni vers am (KEPPRA 8-03 mouth. ity of ORAL) 14:45: [address] levetiracet Yes Take by Uni vers am (KEPPRA 8-03 mouth. ity of ORAL) 14:45: [address] Branch levetiracet 2020-0 Yes Take by Uni vers am (KEPPRA 8-03 mouth. ity of ORAL) 14:45: [address] Branch levetiracet 2020-0 Yes Take by Uni vers am (KEPPRA 8-03 mouth. ity of ORAL) 14:45: [address] Branch proMETHazin 2020-0 Yes [id number] 25mg Take 1 Univers e 25 mg 8-03 tablet by ity of tablet 00:00: mouth [place] 00 every 6 Medical (six) Branch hours as needed for Nausea and Vomiting (N/V). dicyclomine 2020-0 Yes [id number] 20mg Take 1 Univers 20 mg 8-03 tablet by ity of tablet 00:00: mouth (four) Medical times Branch daily as needed for Abdominal pain. proMETHazin 2020-0 Yes [id number] 25mg Take 1 Univers e 25 mg 8-03 tablet by ity of tablet 00:00: mouth [place] 00 every 6 Medical (six) Branch hours as needed for Nausea and Vomiting (N/V). dicyclomine 2020-0 Yes [id number] 20mg Take 1 Univers 20 mg 8-03 tablet by ity of tablet 00:00: mouth (four) Medical times Branch daily as needed for Abdominal pain. proMETHazin 2020-0 Yes [id number] 25mg Take 1 Univers e 25 mg 8-03 tablet by ity of tablet 00:00: mouth [place] 00 every 6 Medical (six) Branch hours as needed for Nausea and Vomiting (N/V). dicyclomine 2020-0 Yes [id number] 20mg Take 1 Univers 20 mg 8-03 tablet by ity of tablet 00:00: mouth 4 00 (four) Medical times Branch daily as needed for Abdominal pain. proMETHazin 2020-0 Yes [id number] 25mg Take 1 Univers e 25 mg 8-03 tablet by ity of tablet 00:00: mouth [place] 00 every 6 Medical (six) Branch hours as needed for Nausea and Vomiting (N/V). dicyclomine 202-0 Yes [id number] 20mg Take 1 Univers 20 mg 8-03 tablet by ity of tablet 00:00: mouth 4 [place] 00 (four) Medical times Branch daily as needed for Abdominal pain. proMETHazin 2020-0 Yes [id number] 25mg Take 1 Univers e 25 mg 8-03 tablet by ity of tablet 00:00: mouth [place] 00 every 6 Medical (six) Branch hours as needed for Nausea and Vomiting (N/V). dicyclomine 2020-0 Yes [id number] 20mg Take 1 Univers 20 mg 8-03 tablet by ity of tablet 00:00: mouth 4 00 (four) Medical times Branch daily as needed for Abdominal pain. proMETHazin 2020-0 Yes [id number] 25mg Take 1 Univers e 25 mg 8-03 tablet by ity of tablet 00:00: mouth [place] 00 every 6 Medical (six) Branch hours as needed for Nausea and Vomiting (N/V). dicyclomine 2020-0 Yes [id number] 20mg Take 1 Univers 20 mg 8-03 tablet by ity of tablet 00:00: mouth 4 (four) Medical times Branch daily as needed for Abdominal pain. proMETHazin 2020-0 Yes [id number] 25mg Take 1 Univers e 25 mg 8-03 tablet by ity of tablet 00:00: mouth [place] 00 every 6 Medical (six) Branch hours as needed for Nausea and Vomiting (N/V). dicyclomine 2020-0 Yes [id number] 20mg Take 1 Univers 20 mg 8-03 tablet by ity of tablet 00:00: mouth (four) Medical times Branch daily as needed for Abdominal pain. proMETHazin 2020-0 Yes [id number] 25mg Take 1 Univers e 25 mg 8-03 tablet by ity of tablet 00:00: mouth [place] 00 every 6 Medical (six) Branch hours as needed for Nausea and Vomiting (N/V). dicyclomine 2020-0 Yes [id number] 20mg Take 1 Univers 20 mg 8-03 tablet by ity of tablet 00:00: mouth 4 00 (four) Medical times Branch daily as needed for Abdominal pain. proMETHazin 202-0 Yes [id number] 25mg Take 1 Univers e 25 mg 8-03 tablet by ity of tablet 00:00: mouth [place] 00 every 6 Medical (six) Branch hours as needed for Nausea and Vomiting (N/V). dicyclomine 2021-0 Yes [id number] 20mg Take 1 Univers 20 mg 8-03 tablet by ity of tablet 00:00: mouth [place] (four) Medical times Branch daily as needed for Abdominal pain. proMETHazin 0 Yes [id number] 25mg Take 1 Univers e 25 mg 8-03 tablet by ity of tablet 00:00: mouth 00 every 6 Medical (six) Branch hours as needed for Nausea and Vomiting (N/V). dicyclomine 0 Yes [id number] 20mg Take 1 Univers 20 mg 8-03 tablet by ity of tablet 00:00: mouth (four) Medical times Branch daily as needed for Abdominal pain. proMETHazin 0 Yes [id number] 25mg Take 1 Univers e 25 mg 8-03 tablet by ity of tablet 00:00: mouth [place] 00 every 6 Medical (six) Branch hours as needed for Nausea and Vomiting (N/V). dicyclomine Yes [id number] 20mg Take 1 Univers 20 mg 8-03 tablet by ity of tablet 00:00: mouth [place] (four) Medical times Branch daily as needed for Abdominal pain. ZONISAMIDE Yes TAKE 1 Unive rs 100 mg 4-29 CAPSULE BY ity of capsule 00:00: MOUTH [place] 00 TWICE A Medical DAY Branch ZONISAMIDE 2020- No TAKE 1 Univ ers 100 mg 4-29 08-03 CAPSULE BY ity of capsule 00:00: 00:00 MOUTH [place] 00 :00 TWICE A Medical DAY Branch ondansetron Yes 4mg Take 4 mg U nivers (ZOFRAN) 4 7-24 by mouth ity o f mg tablet 20:05: every 8 [place] (eight) Medical hours as Branch needed. pantoprazol Yes 40mg Take 40 mg Univers e 7-24 by mouth ity of (PROTONIX) 20:05: daily. [place] 40 mg 01 Medical tablet Branch ondansetron Yes 4mg Take 4 mg U nivers (ZOFRAN) 4 7-24 by mouth ity o f mg tablet 20:05: every 8 [place] (eight) Medical hours as Branch needed. pantoprazol Yes 40mg Take 40 mg Univers e 7-24 by mouth ity of (PROTONIX) 20:05: daily. [place] 40 mg EC 01 Medical tablet Branch LISINOPRIL- 2018-0 Yes Take by Uni vers HYDROCHLORO 7-24 mouth. ity of THIAZIDE 20:05: [place] ORAL 01 Medical Branch ondansetron 2018-0 Yes 4mg Take 4 mg U nivers (ZOFRAN) 4 7-24 by mouth ity o f mg tablet 20:05: every 8 (eight) Medical hours as Branch needed. pantoprazol 2018-0 Yes 40mg Take 40 mg Univers e 7-24 by mouth ity of (PROTONIX) 20:05: daily. [place] 40 mg EC Medical tablet Branch ondansetron 2018-0 Yes 4mg Take 4 mg U nivers (ZOFRAN) 4 7-24 by mouth ity o f mg tablet 20:05: every 8 (eight) Medical hours as Branch needed. pantoprazol 2018-0 Yes 40mg Take 40 mg Univers e 7-24 by mouth ity of (PROTONIX) 20:05: daily. [place] 40 mg EC Medical tablet Branch ondansetron 2018-0 Yes 4mg Take 4 mg U nivers (ZOFRAN) 4 7-24 by mouth ity o f mg tablet 20:05: every 8 [place] (eight) Medical hours as Branch needed. pantoprazol 2018-0 Yes 40mg Take 40 mg Univers e 7-24 by mouth ity of (PROTONIX) 20:05: daily. [place] 40 mg EC Medical tablet Branch ondansetron 2018-0 Yes 4mg Take 4 mg U nivers (ZOFRAN) 4 7-24 by mouth ity o f mg tablet 20:05: every 8 (eight) Medical hours as Branch needed. pantoprazol 2018-0 Yes 40mg Take 40 mg Univers e 7-24 by mouth ity of (PROTONIX) 20:05: daily. [place] 40 mg EC Medical tablet Branch ondansetron 2018-0 Yes 4mg Take 4 mg U nivers (ZOFRAN) 4 7-24 by mouth ity o f mg tablet 20:05: every 8 (eight) Medical hours as Branch needed. pantoprazol 2018-0 Yes 40mg Take 40 mg Univers e 7-24 by mouth ity of (PROTONIX) 20:05: daily. [place] 40 mg EC Medical tablet Branch lisinopril- 2018-0 Yes 1{tbl} [...] Medical OIL) 1,000 Branch mg capsule omega-3 [id number] Yes 1g Take 1 g Univer s fatty 7-24 by mouth ity of acids-vitam 19:59: daily. [place] in E (FISH 52 Medical OIL) 1,000 Branch mg capsule MULTIVITAMI Yes 1{tbl} Take 1 Tab Univers N ORAL 7-24 by mouth ity of 19:58: daily. [place] [address] Medical Branch loratadine Yes Take by Univ ers (CLARITIN 7-24 mouth ity of LIQUI-GEL) 19:58: daily. [place] 10 mg 14 Medical capsule Branch MULTIVITAMI Yes 1{tbl} Take 1 Tab Univers N ORAL 7-24 by mouth ity of 19:58: daily. [place] [address] Medical Branch loratadine Yes Take by Univ ers (CLARITIN 7-24 mouth ity of LIQUI-GEL) 19:58: daily. [place] 10 mg 14 Medical capsule Branch MULTIVITAMI Yes 1{tbl} Take 1 Tab Univers N ORAL 7-24 by mouth ity of 19:58: daily. [place] [address] Medical Branch loratadine Yes Take by Univ ers (CLARITIN 7-24 mouth ity of LIQUI-GEL) 19:58: daily. [place] 10 mg 14 Medical capsule Branch MULTIVITAMI Yes 1{tbl} Take 1 Tab Univers N ORAL 7-24 by mouth ity of 19:58: daily. [place] [address] Medical Branch loratadine Yes Take by Uni vers (CLARITIN 7-24 mouth ity of LIQUI-GEL) 19:58: daily. [place] 10 mg 14 Medical capsule Branch MULTIVITAMI 2018-0 Yes 1{tbl} Take 1 Tab Univers N ORAL 7-24 by mouth ity of 19:58: daily. [place] 14 Medical Branch loratadine 2018-0 Yes Take by [facility] ers (CLARITIN 7-24 mouth ity of LIQUI-GEL) 19:58: daily. [place] 10 mg 14 Medical capsule Branch MULTIVITAMI 2018-0 Yes 1{tbl} Take 1 Tab Univers N ORAL 7-24 by mouth ity of 19:58: daily. [place] 14 Medical Branch loratadine 2018-0 Yes Take by [facility] ers (CLARITIN 7-24 mouth ity of LIQUI-GEL) 19:58: daily. [place] 10 mg 14 Medical capsule Branch MULTIVITAMI [id number] Yes 1{tbl} Take 1 Tab Univers N ORAL 7-24 by mouth ity of 19:58: daily. [place] [address] Medical Branch loratadine 2018-0 Yes Take by [facility] ers (CLARITIN 7-24 mouth ity of LIQUI-GEL) 19:58: daily. [place] 10 mg 14 Medical capsule Branch ondansetron 2017-0 Yes 4mg Take 4 mg U nivers (ZOFRAN) 4 7-24 by mouth ity o f mg tablet 15:05: every 8 [place] (eight) Medical hours as Branch needed. pantoprazol 2018-0 Yes 40mg Take 40 mg Univers e 7-24 by mouth ity of (PROTONIX) 15:05: daily. [place] 40 mg EC 01 Medical tablet Branch ondansetron 2018-0 Yes 4mg Take 4 mg U nivers (ZOFRAN) 4 7-24 by mouth ity o f mg tablet 15:05: every 8 [place] (eight) Medical hours as [...] Medical OIL) 1,000 Branch mg capsule MULTIVITAMI 0 Yes 1{tbl} Take 1 Tab Univers N ORAL 7-24 by mouth ity of 14:58: daily. [place] [address] Medical Branch loratadine 0 Yes Take by [facility] ers (CLARITIN 7-24 mouth ity of LIQUI-GEL) 14:58: daily. [place] 10 mg 14 Medical capsule Branch MULTIVITAMI 0 Yes 1{tbl} Take 1 Tab Univers N ORAL 7-24 by mouth ity of 14:58: daily. [place] 14 Medical Branch loratadine 0 Yes Take by [facility] ers (CLARITIN 7-24 mouth ity of LIQUI-GEL) 14:58: daily. [place] 10 mg 14 Medical capsule Branch MULTIVITAMI 0 Yes 1{tbl} Take 1 Tab Univers N ORAL 7-24 by mouth ity of 14:58: daily. [place] 14 Medical Branch loratadine 0 Yes Take by Univ ers (CLARITIN 7-24 mouth ity of LIQUI-GEL) 14:58: daily. [place] 10 mg 14 Medical capsule Branch MULTIVITAMI [id number] Yes 1{tbl} Take 1 Tab Univers N ORAL 7-24 by mouth ity of 14:58: daily. [place] 14 Medical Branch loratadine 0 Yes Take by Univ ers (CLARITIN 7-24 mouth ity of LIQUI-GEL) 14:58: daily. [place] 10 mg 14 Medical capsule Branch MULTIVITAMI [id number] Yes 1{tbl} Take 1 Tab Univers N ORAL 7-24 by mouth ity of 14:58: daily. [place] 14 Medical Branch loratadine 2018-0 Yes Take by [facility] ers (CLARITIN 7-24 mouth ity of LIQUI-GEL) 14:58: [...] daily. [place] mg tablet 00 Medical Branch Immunizations Ordered Filled Immunization Date Status Comments [facility] e Immunization Name Name SARS-COV-2 COVID-19 2022-02-19 Completed Unive rsity of PFIZER BA-SUCROSE 00:00:00 [facility] (ROSE [facility]) Branch SARS-COV-2 COVID-19 2021-05-24 Completed Unive rsity of PFIZER VACCINE 00:00:00 [facility] Branch SARS-COV-2 COVID-19 2021-05-24 Completed Unive rsity of PFIZER VACCINE 00:00:00 [place] [facility] SARS-COV-2 COVID-19 2021-05-24 Completed Unive rsity of PFIZER VACCINE 00:00:00 [place] [facility] SARS-COV-2 COVID-19 2021-05-03 Completed Unive rsity of PFIZER VACCINE 00:00:00 [place] [facility] SARS-COV-2 COVID-19 2021-05-03 Completed Unive rsity of PFIZER VACCINE 00:00:00 [place] [facility] SARS-COV-2 COVID-19 2021-05-03 Completed Unive rsity of PFIZER VACCINE 00:00:00 [place] [facility] SARS-COV-2 COVID-19 2021-05-03 Completed Unive rsity of PFIZER VACCINE 00:00:00 [place] [facility] Vital Signs Vital Name Observation Time Observation Value Comments Source Systolic blood 2021-11-23 21:30:00 132 mm[Hg] Univer sity of pressure [facility] Diastolic blood 2021-11-23 21:30:00 76 mm[Hg] Unive rsity of pressure [facility] Heart rate 2021-11-23 21:30:00 95 /min Universi ty of [facility] Respiratory rate 2021-11-23 21:30:00 13 /min Univ ersity of [facility] Oxygen saturation in 2021-11-23 21:30:00 97 /min University of Arterial blood by [facility] Pulse oximetry Branch Body temperature 2021-11-23 20:15:[address] [facility] ersity of [facility] Systolic blood 2021-03-17 03:00:00 117 mm[Hg] Univer sity of [facility] Diastolic blood 2021-03-17 03:00:00 76 mm[Hg] Unive rsity of [facility] Heart rate 2021-03-17 03:00:00 104 /min Universi ty of [facility] Respiratory rate 2021-03-17 03:00:00 28 /min Univ ersity of [facility] Oxygen saturation in 2021-03-17 03:00:00 96 /min University of Arterial blood by [facility] Pulse oximetry Branch Body temperature 2021-03-17 00:39:00 37.11 Radha Univ ersity of [facility] Body height 2021-03-17 00:39:00 160 cm [facility] [place] ty [facility] Body weight 2021-03-17 00:39:00 58.968 kg [facility] BMI 2021-03-17 00:39:00 23.03 kg/m2 [facility] Systolic blood 2021-03-15 00:14:00 149 mm[Hg] Univer sity of pressure [facility] Branch Diastolic blood 2021-03-15 00:14:00 78 mm[Hg] Unive rsity of pressure [facility] Heart rate 2021-03-15 00:14:00 100 /min Universi ty [facility] Body temperature 2021-03-15 00:14:00 37.33 [address] [facility] Respiratory rate 2021-03-15 00:14:00 24 /min [facility] Body height 2021-03-15 00:14:00 160 cm Universi ty [facility] Body weight 2021-03-15 00:14:00 58.968 kg Universi ty [facility] [place] BMI 2021-03-15 00:14:00 23.03 kg/m2 [facility]i ty [facility] [place] Oxygen saturation in 2021-03-15 00:14:00 98 /min University of Arterial blood by [facility] Pulse oximetry Branch Systolic blood 2021-02-19 18:00:00 131 mm[Hg] Univer sity of [facility] Diastolic blood 2021-02-19 18:00:00 80 mm[Hg] Unive rsity of [facility] Heart rate 2021-02-19 18:00:00 83 /min [facility]i ty [facility] [place] Respiratory rate 2021-02-19 18:00:00 18 /min [facility] Oxygen saturation in 2021-02-19 18:00:00 100 /min University of Arterial blood by [facility] Pulse oximetry Branch Body temperature 2021-02-19 15:47:00 37 Radha Ut [facility] height 2021-02-19 15:47:00 160 cm Universi ty [facility] [place] Body weight 2021-02-19 15:47:00 58.968 kg Universi ty [facility] [place] BMI 2021-02-19 15:47:00 23.03 kg/m2 [facility] Procedures Procedure Date / Time Performing Clinician Source Performed SARS-COV-2 COVID-19 2022-02-19 15:21:12 Doctor Unassigned, Unive [facility] VACCINE 12 YRS+,0.3ML,IM [facility] ([facility] - ROSE TOP) URINE DRUG (IMMUNOASSAY) 2021-11-23 21:21:00 Nichelle Allison [facility] DRUG [facility] SCREEN W/O REFLEX CT HEAD WO CONTRAST 2021-11-23 20:58:00 Nichelle Allison [facility] POCT TEST 2021-11-23 20:46:00 Nichelle Allison [facility] URINALYSIS 2021-11-23 20:43:00 Nichelle Allison [facility] LIPASE 2021-11-23 20:27:00 Juan Allisonrusttavo Galan [facility] TROPONIN I 2021-11-23 20:27:00 Juan Allisonrusttavo Galan [facility] COMP. METABOLIC PANEL 2021-11-23 20:27:00 Nichelle Allison [facility] ([id number]) [facility] CBC WITH DIFF 2021-11-23 20:27:00 Nichelle Allison [facility] POCT GLUCOSE (AUTOMATED) 2021-11-23 20:15:00 Doctor Unassigned, [facility] SARS-COV-2 COVID-19 2021-05-24 14:23:12 Doctor Unassigned, [facility] VACCINE,0.3ML,IM (PFIZER[facility] SARS-COV-2 COVID-19 2021-05-03 14:59:29 Doctor Unassigned, [facility] VACCINE,0.3ML,IM (PFIZER) [facility] EM[facility]ENCY [facility] 2021-04-16 05:01:00 Doctor Unassigned, [facility] AGREEMENTS AND [facility] AUTHORIZATIONS URINALYSIS 2021-03-17 03:09:00 Fabrice Chakraborty [facility] XR CHEST 1 VW 2021-03-17 01:45:07 Fabrice Chakraborty [facility] TROPONIN I 2021-03-17 01:35:00 Fabrice Chakraborty [facility] COMP. METABOLIC PANEL 2021-03-17 01:35:00 Fabrice Chakraborty [facility] ([id number]) [facility] CBC WITH DIFF 2021-03-17 01:35:00 Fabrice Chakraborty [facility] N-TERMINAL PRO-BNP 2021-03-17 01:35:[address] [facility] [place] COVID-19 (ID NOW RAPID 2021-03-17 00:58:00 Brian Ray [facility] TESTING) Medical Branch CONSENT/REFUSAL FOR 2021-03-17 00:32:59 Doctor Unassjulee, [facility] DIAGNOSIS AND TREATMENT [facility] COVID-19 (ID NOW RAPID 2021-02-19 17:04:00 Anali Patel [facility] TESTING) Medical Branch CT ABDOMEN PELVIS W 2021-02-19 16:41:18 Anali Patel [facility] CONTRAST Medical Branch LIPASE 2021-02-19 15:58:00 Eliana [facility] COMP. METABOLIC PANEL 2021-02-19 15:58:00 Anali Patel [facility] ([id number]) Medical Branch CBC WITH DIFF 2021-02-19 15:58:[address] [facility] URINALYSIS 2021-02-19 15:58:00 [facility] NOTICE OF PRIVACY 2021-02-19 15:30:46 Doctor Unassjulee, [facility] PRACTICES [facility] CONSENT/REFUSAL FOR 2021-02-19 15:30:30 Doctor Joe, [facility] DIAGNOSIS AND TREATMENT [facility] [place] Encounters Start End Encounter Admission Attending Care Care Encounter Source Date/Time Date/Time Type Type Clinicians Facility Department ID 2021-05-20 Emergency [facility] [id number] Univers 18:48:04 ity of [facility] 2021-05-20 Emergency [facility] [id number] Univers 12:43:40 ity of [facility] 2022-02-19 2022-02-19 Imm/Inj Vaccine, [place] [facility] ANJELICA FLETCHER 1.2.840.114 [id number] Univers 10:20:00 10:30:00 Visit Shilpa Frederick 350.1.13.10 it[facility] [place] [facility] [place] [facility] [id number] [facility] 225 Branch 2022-02-19 2022-02-19 Outpatient R [facility] [id number] Univers 10:20:00 10:20:00 [id number] ity of [facility] 2022-02-19 2022-02-19 Outpatient R SHILPA FREDERICK [facility] [id number] Univers 10:20:00 10:20:00 ity of [facility] 2021-11-23 2021-11-23 Emergency X STEFANOAYSEMAURICE [facility] ERT [id number] Univers 15:07:00 17:03:00 FOLANA ity of [facility] 2021-11-23 2021-11-23 Emergency Sav Rondon [facility] 1.2.840. 114 [id number] Univers 15:07:00 17:03:00 Nichelle Allison F [place] 350.1.13. 10 ity of [place] 4.2.7.2.686 [facility] [id number] [facility] 084 Branch 2021-11-21 2021-11-21 Outpatient R [facility] [id number] Univers 09:40:00 09:40:00 [id number] ity of [facility] 2021-11-21 2021-11-21 Outpatient R [facility] [id number] Univers 09:40:00 09:40:00 ity of [facility] 2021-05-24 2021-05-24 Outpatient R [facility] [id number] Univers 09:30:00 09:30:00 [id number] ity of [facility] 2021-05-24 2021-05-24 Outpatient R SHILPA FREDERICK [facility] [id number] Univers 09:30:00 09:30:00 ity of [facility] 2021-05-24 2021-05-24 Imm[facility]Inj Vaccine[facility] 1.2.840.114 [id number] Univers 08:47:51 08:57:51 Visit Shilpa Frederick 350.1.13.10 [place] [facility] [id number] [facility] 225 Branch 2021-05-03 2021-05-03 Outpatient R SHILPA FREDERICK [facility] [id number] Univers 09:40:00 09:59:35 ity of [facility] 2021-05-03 2021-05-03 Imm/Inj Vaccine, Chung Pierson [facility] Anjelica fletcher 1.2.840.114 [id number] Univers 09:17:43 09:59:35 Visit Shilpa Frederick 350.1.13.10 [facility] [place] [facility] [place] [facility] [id number] [facility] 225 Branch 2021-05-03 2021-05-03 Outpatient R [facility] [id number] Univers 09:40:00 09:40:00 [id number] ity of [facility] 2021-04-16 2021-04-16 Orders Doctor EWELINA 1.2.840.114 [id number] Univers 00:00:00 00:00:00 Only Unassigned, HOSEA 350.1.13.10 ity of [place] [facility] 4.2.7.2.686 Javier as [id number] [facility] 009 Branch 2021-03-17 2021-03-17 Telephone EWELINA Nava 1.2.232.373 [id number] Univers 00:00:00 00:00:00 Aneatrice HOSEA 350.1.13.10 ity of [facility] 4.2.7.2.686 Javier as [id number] [facility] 019 Branch 2021-03-16 2021-03-16 Emergency Palmer [facility] 1.2.840.114 [id number] Univers 20:08:00 23:24:00 Shinta Julio Cesar 350.1.13.10 i [place] [id number] [facility] 084 Branch 2021-03-14 2021-03-14 Urgent Lydia Desouza [facility] 1.2.840.114 [id number] Univers 18:59:34 20:19:13 Care Unknown, Attending Health 350.1.13.10 ity of [place] 4.2.7.2.686 Javier as Prem?Blea [id number] [place] [address] [facility] 2021-03-14 2021-03-14 Outpatient R [facility] [id number] Univers 19:00:00 19:00:[id number] [facility] 2021-03-14 2021-03-14 Outpatient R UNKNOWN, [facility] [id number] Univers 19:00:00 19:00:[address] [facility] 2021-02-19 2021-02-19 [facility] [id number] Univers 10:49:00 14:48:00 Anali Harrell 350.1.13.10 i [place] [id number] [address] 2019-03-09 2019-03-09 [facility] 1.2.840.114 [id number] 00:00:00 00:00:00 Yehuda Harrell 350.1.13.10 [place] 4.2.7.2.686 Professio [id number] [address] 2019-03-09 2019-03-09 [facility] 1.2.840.114 [id number] Univers 00:00:00 00:00:00 Yehuda Harrell 350.1.13.10 ity [facility] [place] [id number] [address] Results Test Description Test Time Test Comments Results Result Comments Source TROPONIN I 2021-11-23 21:06:40 Test Item Value Reference Range Interpretation Comme nts TROPONIN I (test code = 0.005 ng/mL See_Comment [Au tomated message] The 6412319111) system which ge nerated this result tra [...] biotin. Lab Interpretation Normal (test code = 77323-6) [facility]. METABOLIC PANEL ([id number])2021-11-23 20:55:42 Test Item Value Reference Range Interpretation Comments NA (test code = 137 mmol/L 135-145 6307403869) K (test code = 4.3 mmol/L 3.5-5.0 7894256987) CL (test code = 104 mmol/L 98-108 3327516463) CO2 TOTAL (test code = 22 mmol/L 23-31 L 1984680427) AGAP (test code = 2-16 3680505179) BUN (test code = 15 mg/dL 7-23 7312305477) GLUCOSE (test code = 114 mg/dL 70-110 H 9476420259) CREATININE (test code = 0.68 mg/dL 0.50-1.04 7809862604) TOTAL BILI (test code = 0.5 mg/dL 0.1-1.5 2872864520) CALCIUM (test code = 9.1 mg/dL 8.6-10.6 6981296465) T PROTEIN (test code = 7.3 g/dL 6.3-8.2 4094487015) ALBUMIN (test code = 4.4 g/dL 3.5-5.0 2435396783) ALK PHOS (test code = 243 U/L 34-122 H 7841043091) ALTv (test code = 24 U/L 5-35 1742-6) AST(SGOT) (test code = 30 U/L 13-40 7156477802) eGFR (test code = mL/min/1.73m2 3953176385) LYNDSAY (test code = LYNDSAY) Association of [...] tests). Lab Interpretation Abnormal (test code = 78903-4) [facility] 20[facility]55[facility]22 Test Item Value Reference Range Interpretation Comments LIPASE (test code = 9696804933) 96 U/L 0-220 Lab Interpretation (test code = Normal 63229-9) [facility] [id number] 20:46:00 Test Item Value Reference Range Interpretation Comments POCT PREG (test code = 1605) negative On board controls acceptable with present C Line (test code = 3574) POCT PREG LOT # (test code = 3575) [id number] POCT PREG TEST DATE (test 04/18/2023 code = 3576) Lab Interpretation (test code = Normal 75382-3) [facility] WITH [id number] 20:40:38 Test Item Value Reference Range Interpretation Comments WBC (test code = See_Comment [Automated 2047-2) message] The sy stem which generated this [...] (test code = 53.7 fL 39.0-49.9 H 03794-5) RDW-CV (test code = 17.2 % 12.0-15.5 H 788-0) PLT (test code = See_Comment H [Automated 777-3) message] The sy stem which generated this result transmitted reference range : 166 - 358 10*3/ ?L. The reference r zoe was not used to interpret this result as normal/abnormal . MPV (test code = 8.5 fL 9.5-12.9 L 30716-9) NRBC/100 WBC (test See_Comment [Automat ed code = 0589710227) message] The system which generated this result transmitted reference range : 0.0 - 10.0 /100 WBCs. The refer ence range was not u sed to interpret th is result as normal/abnormal . NRBC x10^3 (test code <0.01 See_Comment [Auto mated = 3930945997) message] The s ystem which generated this result transmitted reference range : 10*3/?L. The reference range was not used to interpret this result as normal/abnormal . GRAN MAT (NEUT) % 53.7 % (test code = 770-8) IMM GRAN % (test code 0.90 % = 8791646729) LYMPH % (test code = 32.6 % 736-9) MONO % (test code = 10.1 % 5905-5) EOS % (test code = 1.5 % 713-8) BASO % (test code = 1.2 % 706-2) GRAN MAT x10^3(ANC) 4.98 10*3/uL 1.88-7.09 (test code = 5685677950) IMM GRAN x10^3 (test 0.08 10*3/uL 0.00-0.06 H code = 5087932943) LYMPH x10^3 (test code 3.02 10*3/uL 1.32-3.29 = 731-0) MONO x10^3 (test code 0.94 10*3/uL 0.33-0.92 H = 742-7) EOS x10^3 (test code = 0.14 10*3/uL 0.03-0.39 711-2) BASO x10^3 (test code 0.11 10*3/uL 0.01-0.07 H = 704-7) Lab Interpretation Abnormal (test code = 97516-4) [facility]2021-11-23 20:17:33 Test Item Value Reference Range Interpretation Comments POCT GLU (test code = 111 mg/dL 70-110 H Notifi ed Provider 5056513697) Lab Interpretation (test Abnormal code = 19481-2) [facility]2021[facility]29 03:22:48 Test Item Value Reference Range Interpretation Comments APPEARANCE (test code = Hazy Clear A 5734024886) COLOR (test code = Yellow Yellow 4534608790) PH (test code = 4.8-8.0 2515085541) SP GRAVITY (test code = 1.003-1.030 5589726106) GLU U QUAL (test code = Normal Normal 9906115528) BLOOD (test code = Negative Negative Interfere nce from 5593881778) ascorbic acid m ay cause false neg ative results. KETONES (test code = 5 mg/dL Negative A 5084427442) PROTEIN (test code = Negative Negative 2887-8) UROBILIN (test code = 4.0 mg/dL Normal A 6962591598) BILIRUBIN (test code = Negative Negative 5663920049) NITRITE (test code = Negative Negative 2926865072) LEUK GRUPO (test code = Negative Negative 2800754930) RBC/HPF (test code = See_Comment [Autom ated message] 6400988660) The system [employer] generated this result transmitted ref erence range: 0 - 3 HP F. The reference range was not used to int erpret this result as normal/abnormal . WBC/HPF (test code = <1 See_Comment [Autom ated message] 8460941374) The system [employer] generated this result transmitted ref erence range: 0 - 5 HP F. The reference range was not used to int erpret this result as normal/abnormal . BACTERIA (test code = Few Negative A 9101621271) SQ EPITH (test code = HPF 4474633098) Lab Interpretation Abnormal (test code = 17280-3) [facility]21[facility]29 03:22:48 Test Item Value Reference Range Interpretation Comments APPEARANCE (test code = Hazy Clear A 6316352879) COLOR (test code = Yellow Yellow 6894403109) PH (test code = 4.8-8.0 6661349299) SP GRAVITY (test code = 1.003-1.030 0748580435) GLU U QUAL (test code = Normal Normal 8475746614) BLOOD (test code = Negative Negative 4252059534) KETONES (test code = 5 mg/dL Negative A 8068778483) PROTEIN (test code = Negative Negative 2887-8) UROBILIN (test code = 4.0 mg/dL Normal A 0886234030) BILIRUBIN (test code = Negative Negative 7097673144) NITRITE (test code = Negative Negative 6873577891) LEUK GRUPO (test code = Negative Negative 1831482158) RBC/HPF (test code = See_Comment [Autom ated message] 7327818988) The system [employer] generated this result transmit sherice reference range : 0 - 3 HPF. The refe rence range was not u sed to interpret th is result as normal/abnormal . WBC/HPF (test code = <1 See_Comment [Autom ated message] 5487728302) The system [employer] generated this result transmit sherice reference range : 0 - 5 HPF. The refe rence range was not u sed to interpret th is result as normal/abnormal . BACTERIA (test code = Few Negative A 9707324927) SQ EPITH (test code = HPF 2216944214) Lab Interpretation (test Abnormal code = 26269-9) [facility] [id number] 02:45:00 Test Item Value Reference Interpretation Comments Range TROPONIN I (test 0.002 ng/mL See_Comment [Automated code = 5378819414) message] The system which generated this result [...] biotin. Lab Interpretation Normal (test code = 16863-1) [facility] [id number] 02:45:00 Test Item Value Reference Range Interpretation Comments TROPONIN I (test code = 0.002 ng/mL See_Comment [Au tomated 6091469711) message] The sy stem which generated this result transmitted reference range : <=0.034. The reference range was not used to interpret this result as normal/abnormal . LYNDSAY (test code = LYNDSAY) Lab Interpretation Normal (test code = 25649-5) [facility]-TERMINAL [id number] 02:41:57 Test Item Value Reference Range Interpretation Comments NT-proBNP (test code 169 pg/mL See_Comment H [Autom ated = 4757806474) message] The system which generated this result transmitted reference range : <=125. The reference range was not used to interpret this result as normal/abnormal . LYNDSAY (test code = LYNDSAY) Biotin has been reported to cause a negative bias, interpret results relative to patient's use of biotin. Lab Interpretation Abnormal (test code = 21439-2) [facility]-TERMINAL [id number] 02:41:57 Test Item Value Reference Range Interpretation Comments NT-proBNP (test code = 169 pg/mL See_Comment H [Aut omated message] 4524179766) The system whic h generated this result transmit sherice reference range : <=125. The refe rence range was not u sed to interpret th is result as normal/abnormal . LYNDSAY (test code = LYNDSAY) Lab Interpretation (test Abnormal code = 98384-8) [facility]. METABOLIC PANEL (13681)2021-03-17 02:09:13 Test Item Value Reference Range Interpretation Comments NA (test code = 137 mmol/L 135-145 8091656917) K (test code = 4.2 mmol/L 3.5-5.0 2402429493) CL (test code = 102 mmol/L 98-108 7139285268) CO2 TOTAL (test code = 25 mmol/L 23-31 1977005887) AGAP (test code = 2-16 9415061996) BUN (test code = 18 mg/dL 7-23 2856280171) GLUCOSE (test code = 144 mg/dL 70-110 H 3510357695) CREATININE (test code = 0.77 mg/dL 0.50-1.04 2558854544) TOTAL BILI (test code = 0.4 mg/dL 0.1-1.3 5382770103) CALCIUM (test code = 8.9 mg/dL 8.6-10.6 9689755670) T PROTEIN (test code = 6.8 g/dL 6.3-8.2 7525468616) ALBUMIN (test code = 3.9 g/dL 3.5-5.0 3250299040) ALK PHOS (test code = 84 U/L 34-122 2750862335) ALTv (test code = 13 U/L 5-35 1742-6) AST(SGOT) (test code = 17 U/L 13-40 9689834703) eGFR (test code = mL/min/1.73m2 7272851429) LYNDSAY (test code = LYNDSAY) Association of [...] tests). Lab Interpretation Abnormal (test code = 67595-7) [facility]. METABOLIC PANEL (89247)2021-03-17 02:09:13 Test Item Value Reference Range Interpretation Comments NA (test code = 0125575270) 137 mmol/L 135-145 K (test code = 1973624300) 4.2 mmol/L 3.5-5.0 CL (test code = 0633092081) 102 mmol/L 98-108 CO2 TOTAL (test code = 0848428975) 25 mmol/L 23-31 AGAP (test code = 5947411573) 2-16 BUN (test code = 9877142129) 18 mg/dL 7-23 GLUCOSE (test code = 9874705254) 144 mg/dL 70-110 H CREATININE (test code = 0.77 mg/dL 0.50-1.04 1481159348) TOTAL BILI (test code = 0.4 mg/dL 0.1-1.1 2043898417) CALCIUM (test code = 2184173113) 8.9 mg/dL 8.6-10.6 T PROTEIN (test code = 5828468672) 6.8 g/dL 6.3-8.2 ALBUMIN (test code = 2603046823) 3.9 g/dL 3.5-5.0 ALK PHOS (test code = 4684922052) 84 U/L 34-122 ALTv (test code = 1742-6) 13 U/L 5-35 AST(SGOT) (test code = 7784201270) 17 U/L 13-40 eGFR (test code = 5865029048) mL/min/1.73m2 LYNDSAY (test code = LYNDSAY) Lab Interpretation (test code = Abnormal 97359-0) [facility] WITH [id number] 01:56:33 Test Item Value Reference Range Interpretation [...] (test code = 55.5 fL 39.0-49.9 H 65387-1) RDW-CV (test code = 18.9 % 12.0-15.5 H 788-0) PLT (test code = See_Comment H [Automated 777-3) message] The sy stem which generated this result transmitted reference range : 166 - 358 10*3/ ?L. The reference r zoe was not used to interpret this result as normal/abnormal . MPV (test code = 8.2 fL 9.5-12.9 L 81764-5) NRBC/100 WBC (test See_Comment [Automat ed code = 1022738520) message] The system which generated this result transmitted reference range : 0.0 - 10.0 /100 WBCs. The refer ence range was not u sed to interpret th is result as normal/abnormal . NRBC x10^3 (test code <0.01 See_Comment [Auto mated = 8067127698) message] The s ystem which generated this result transmitted reference range : 10*3/?L. The reference range was not used to interpret this result as normal/abnormal . GRAN MAT (NEUT) % 61.7 % (test code = 770-8) IMM GRAN % (test code 0.80 % = 3753830013) LYMPH % (test code = 28.5 % 736-9) MONO % (test code = 6.3 % 5905-5) EOS % (test code = 1.8 % 713-8) BASO % (test code = 0.9 % 706-2) GRAN MAT x10^3(ANC) 7.31 10*3/uL 1.88-7.09 H (test code = 6124090362) IMM GRAN x10^3 (test 0.09 10*3/uL 0.00-0.06 H code = 0821431522) LYMPH x10^3 (test code 3.38 10*3/uL 1.32-3.29 H = 731-0) MONO x10^3 (test code 0.75 10*3/uL 0.33-0.92 = 742-7) EOS x10^3 (test code = 0.21 10*3/uL 0.03-0.39 711-2) BASO x10^3 (test code 0.11 10*3/uL 0.01-0.07 H = 704-7) Lab Interpretation Abnormal (test code = 68553-4) [facility] WITH [id number] 01:56:33 Test Item Value Reference Range Interpretation Comments WBC (test code = See_Comment H [Automated 3090-2) message] The sy stem which generated this result transmitted reference range : 4.30 - 11.10 10*3/?L. The reference range was not used to interpret this result as normal/abnormal . RBC (test code = See_Comment [Automated 109-8) message] The sy stem which generated this [...] (test code = 55.5 fL 39.0-49.9 H 21957-2) RDW-CV (test code = 18.9 % 12.0-15.5 H 788-0) PLT (test code = See_Comment H [Automated 777-3) message] The sy stem which generated this result transmitted reference range : 166 - 358 10*3/ ?L. The reference r zoe was not used to interpret this result as normal/abnormal . MPV (test code = 8.2 fL 9.5-12.9 L 17645-9) NRBC/100 WBC (test See_Comment [Automat ed code = 5412056885) message] The system which generated this result transmitted reference range : 0.0 - 10.0 /100 WBCs. The refer ence range was not u sed to interpret th is result as normal/abnormal . NRBC x10^3 (test code <0.01 See_Comment [Auto mated = 8939475615) message] The s ystem which generated this result transmitted reference range : 10*3/?L. The reference range was not used to interpret this result as normal/abnormal . GRAN MAT (NEUT) % 61.7 % (test code = 770-8) IMM GRAN % (test code 0.80 % = 4629624965) LYMPH % (test code = 28.5 % 736-9) MONO % (test code = 6.3 % 5905-5) EOS % (test code = 1.8 % 713-8) BASO % (test code = 0.9 % 706-2) GRAN MAT x10^3(ANC) 7.31 10*3/uL 1.88-7.09 H (test code = 8365637361) IMM GRAN x10^3 (test 0.09 10*3/uL 0.00-0.06 H code = 2211829874) LYMPH x10^3 (test code 3.38 10*3/uL 1.32-3.29 H = 731-0) MONO x10^3 (test code 0.75 10*3/uL 0.33-0.92 = 742-7) EOS x10^3 (test code = 0.21 10*3/uL 0.03-0.39 711-2) BASO x10^3 (test code 0.11 10*3/uL 0.01-0.07 H = 704-7) Lab Interpretation Abnormal (test code = 53870-8) [facility]-19 (ID NOW RAPID TESTING)2021-03-17 01:38:12 Test Item Value Reference Range Interpretation Comments SARS-CoV-2 Rapid ID NOW Not Detected Not Detected (test code = 20398-5) LYNDSAY (test code = LYNDSAY) ID NOW COVID-19 Assay is an isothermal nucleic acid amplification test intended for the qualitative detection of nucleic acid from SARS-CoV-2 viral RNA in nasopharyngeal ([employer]) specimens. It is used under Emergency Use [...] indicated. Lab Interpretation Normal (test code = 67342-3) [facility]-19 (ID NOW RAPID TESTING)2021-03-17 01:38:12 Test Item Value Reference Range Interpretation Comments SARS-CoV-2 Rapid ID NOW (test Not Detected Not Detected code = 61342-3) LYNDSAY (test code = LYNDSAY) Lab Interpretation (test code = Normal 41927-1) [facility] NOW RAPID [facility])2021-02-19 17:42:45 Test Item Value Reference Range Interpretation Comments SARS-CoV-2 Rapid ID NOW Not Detected Not Detected (test code = 39783-0) LYNDSAY (test code = LYNDSAY) ID NOW COVID-19 Assay is an isothermal nucleic acid amplification test intended for the qualitative detection of nucleic acid from SARS-CoV-2 viral RNA in nasopharyngeal ([employer]) specimens. It is used under Emergency Use [...] indicated. Lab Interpretation Normal (test code = 76384-9) [facility] PEL[facility] W [id number] 17:24:55Thickening of the gastric antrum and duodenal [...] reduction technology wasutilized.. FINDINGS:The liver is normal insize and morphology without discrete lesions. Focalfatty infiltration along the falciform ligament. C holecystectomy. Thespleen is normal. No pancreatic lesions or inflammatory changes. Diffusethickening and nodularity of the left adrenal gland is stable measuring upto 1.5 cm. Right adrenal gland is normal. Both kidneys enhance symmetrically without discrete lesions. No stones orhydronephrosis. Urinary bladder is grossly normal. No hiatal hernia or esophageal thickening. Thickening noted of the gastricantrum and duodenal bulb. No surrounding inflammatory changes [...] the subcutaneous softtissues. The lung bases are clear. [facility], Radiant Results Inft User - 02/19/2021 12:26 PM CDT Patient name: EUSEBIA MCCABE THOMASDOB: 1970 51 years EXAMINATION: CT ABDOMEN PELVIS W CONTRASTOrdering Physician: ANALI PATEL CLINICAL HISTORY:Abdominal pain, acute, nonlocalized COMPARISON:11/21/2015TECHNIQUE:Helical CT images ofthe abdomen and pelvis were performed from the lungbases to the proximal femurs using 5 mm slice thickness after theadministration of IV contrast. Oral contrast was administered. Coronal andsagittal reconstruction was performed. Dose reduction technology wasutilized..FINDINGS:The liver is normal in size and morphology without discrete lesions. Focalfatty infiltration along the falciform ligament. Chol ecystectomy. Thespleen is normal. No pancreatic lesions or inflammatory changes. Diffusethickening and nodularity of the left adrenal gland is stable measuring upto 1.5 cm. Right adrenal gland is normal.Both kidneys enhance symmetrically without discrete lesions. No stones orhydronephrosis. Urinary bladder is grossly normal.No hiatal hernia or esophageal thickening. Thickening noted of the gastricantrum and duodenal bulb. No surrounding inflammatory changes or focalfluid collections. No free air. The large and small bowel are normal incaliber and wall thickness. Moderate formed stool within the colon. Theappendix is normal.The uterus and ovaries are normal for age. No free fluid or abscess. Noadenopathy. Aorta is normal in caliber.No acute osseous abnormality. No acute process in the subcutaneoussofttissues. The lung bases are clear.IMPRESSIONThickening of the gastric antrum and duodenal bulb could be fromunderdistention, the differential would include sequela of peptic ulcerdisease. No findings of ulcer perforation.Otherwise, no acute intra- abdominal or pelvic abnormality.Stable thickening and nodularity of the left adrenal gland.RL: [id number] [facility] CampusUrinalysis2021-08-03 17:03:40 Test Item Value Reference Range Interpretation Comments APPEARANCE (test code = Hazy Clear A 1414850367) COLOR (test code = Mabel Yellow A 0301219149) PH (test code = 4.8-8.0 6639250803) SP GRAVITY (test code = 1.003-1.030 H 0954963308) GLU U QUAL (test code = Normal Normal 9290446794) BLOOD (test code = Negative Negative 2558741696) KETONES (test code = 5 mg/dL Negative A 3205951377) PROTEIN (test code = 30 mg/dL Negative A 2887-8) UROBILIN (test code = 4.0 mg/dL Normal A 9666870459) BILIRUBIN (test code = 4 mg/dL Negative A 1745316286) NITRITE (test code = Negative Negative 7328826275) LEUK GRUPO (test code = Negative Negative 5985042641) RBC/HPF (test code = See_Comment H [Autom ated message] 7687539269) The system HRBoss generated this result transmit sherice reference range : 0 - 3 HPF. The refe rence range was not u sed to interpret th is result as normal/abnormal . WBC/HPF (test code = See_Comment H [Autom ated message] 8534035562) The system [employer]oss generated this result transmit sherice reference range : 0 - 5 HPF. The refe rence range was not u sed to interpret th is result as normal/abnormal . BACTERIA (test code = Few Negative A 9694541720) MUCOUS (test code = Moderate Negative LPF A 7610547338) SQ EPITH (test code = HPF 9762544270) CA OXALATE (test code = See_Comment H [Au tomated message] 5755506242) The system [employer]oss generated this result transmit sherice reference range : <=1 HPF. The refere nce range was not u sed to interpret th is result as normal/abnormal . Ictotest (test code = Negative 5670893111) Lab Interpretation (test Abnormal code = 95180-6) [facility] CampusComplete Metabolic [id number] 16:34:55 Test Item Value Reference Range Interpretation Comments NA (test code = 139 mmol/L 135-145 1116641642) K (test code = 4.3 mmol/L 3.5-5.0 5143639934) CL (test code = 105 mmol/L 98-108 9427653251) CO2 TOTAL (test code 26 mmol/L 23-31 = 5771746870) AGAP (test code = 2-16 2827368883) BUN (test code = 11 mg/dL 7-23 7731658695) GLUCOSE (test code = 95 mg/dL 70-110 8887079289) CREATININE (test code 0.70 mg/dL 0.50-1.04 = 2385203702) TOTAL BILI (test code 0.6 mg/dL 0.1-1.1 = 0604272356) CALCIUM (test code = 8.9 mg/dL 8.6-10.6 9553019230) T PROTEIN (test code 7.7 g/dL 6.3-8.2 = 7042227466) ALBUMIN (test code = 4.1 g/dL 3.5-5.0 5517517576) ALK PHOS (test code = 79 U/L 34-122 2689208787) ALTv (test code = 10 U/L 5-35 1742-6) AST(SGOT) (test code 22 U/L 13-40 = 7731217560) eGFR (test code = mL/min/1.73m2 6961979204) LYNDSAY (test code = LYNDSAY) Association of [...] or urine or abnormalities in imaging tests). [facility] CampusLipase, [id number] 16:34:14 Test Item Value Reference Range Interpretation Comments LIPASE (test code = 1769077664) 45 U/L 0-220 Lab Interpretation (test code = Normal 93789-3) [facility] CampusCB with [id number] 16:21:12 Test Item Value Reference Range Interpretation Comments WBC (test code = See_Comment [Automated 0996-2) message] The sy stem which generated this result transmitted reference range : 4.30 - 11.10 10*3/?L. The reference range was not used to interpret this result as normal/abnormal . RBC (test code = See_Comment [Automated 960-7) message] The sy stem which generated this [...] (test code = 54.4 fL 39.0-49.9 H 53917-6) RDW-CV (test code = 18.3 % 12.0-15.5 H 788-0) PLT (test code = See_Comment H [Automated 777-3) message] The sy stem which generated this result transmitted reference range : 166 - 358 10*3/ ?L. The reference r zoe was not used to interpret this result as normal/abnormal . MPV (test code = 8.5 fL 9.5-12.9 L 32710-2) NRBC/100 WBC (test See_Comment [Automat ed code = 5201322651) message] The system which generated this result transmitted reference range : 0.0 - 10.0 /100 WBCs. The refer ence range was not u sed to interpret th is result as normal/abnormal . NRBC x10^3 (test code <0.01 See_Comment [Auto mated = 9951126595) message] The s ystem which generated this result transmitted reference range : 10*3/?L. The reference range was not used to interpret this result as normal/abnormal . GRAN MAT (NEUT) % 78.3 % (test code = 770-8) IMM GRAN % (test code 0.40 % = 3976788013) LYMPH % (test code = 15.4 % 736-9) MONO % (test code = 4.8 % 5905-5) EOS % (test code = 0.1 % 713-8) BASO % (test code = 1.0 % 706-2) GRAN MAT x10^3(ANC) 7.15 10*3/uL 1.88-7.09 H (test code = 7795438587) IMM GRAN x10^3 (test 0.04 10*3/uL 0.00-0.06 code = 5759646823) LYMPH x10^3 (test code 1.41 10*3/uL 1.32-3.29 = 731-0) MONO x10^3 (test code 0.44 10*3/uL 0.33-0.92 = 742-7) EOS x10^3 (test code = <0.03 0.03-0.39 L 711-2) BASO x10^3 (test code 0.09 10*3/uL 0.01-0.07 H = 704-7) Lab Interpretation Abnormal (test code = 12187-8) [facility]"
[2022-03-04 01:09] LABS: Hematocrit 35.1 % (36.0-45.0); Lymphocytes % 35.1 % (15.3-44.8); MCV 84.2 fL (80-100); RBC Red Blood Cell Count 4.17 M/uL (3.86-4.86)
[2022-03-04 01:10] LABS: Protime INR 0.97
[2022-03-04] MEDS ORDERED: LEVETIRACETAM 500 MG/5 ML VIAL IV ONE (01:22)
[2022-03-04] MEDS ORDERED: NA CHLORIDE 0.9% 250 ML ONE (01:22)
[2022-03-04] MEDS ORDERED: NA CHLORIDE 0.9% 1,000 ML ONE (01:22)
[2022-03-04] MEDS ORDERED: ONDANSETRON 4 MG/2 ML VIAL ONE (01:22)
[2022-03-04] MEDS ORDERED: DIAZEPAM 10 MG/2 ML INJ SYRINGE ONE (01:30)
[2022-03-04] MEDS ORDERED: THIAMINE 200 MG/2 ML INJ ONE (01:42)
[2022-03-04] MEDS ORDERED: MULTIVITAMINS 10 ML VIAL (INJ) IV ONE (01:42)
[2022-03-04 01:43] LABS: ALT/SGPT 22 U/L (12-78); AST/SGOT 17 U/L (15-37); Albumin 3.5 g/dL (3.4-5.0); Alkaline Phosphatase 89 U/L (45-117); BUN Blood Urea Nitrogen 10 mg/dL (7-18); Bicarbonate 21 mmol/L (21-32); Bilirubin Total 0.1 mg/dL (0.2-1.0); Glomerular Filtration Rate 99 ml/min (=/>90); Glucose Level 94 mg/dL (74-106); Magnesium 2.2 mg/dL (1.8-2.4); Phosphorus 4.2 mg/dL (2.5-4.9); Potassium 3.5 mmol/L (3.5-5.1); Protein, Total 7.4 g/dL (6.4-8.2); Sodium Level 137 mmol/L (136-145)
[2022-03-04] MEDS ORDERED: FOLIC ACID 5 MG/ML VIAL ONE (01:43)
[2022-03-04 01:44] LABS: Bilirubin Direct < 0.1 mg/dL (0-0.2)
[2022-03-04 02:02] LABS: Urine Blood 2+ (Negative); Urine Glucose Negative (Negative); Urine Protein Negative (Negative); Urine Specific Gravity <=1.005 (1.005-1.030)
[2022-03-04 02:28] LABS: Barbiturates NEGATIVE (NEGATIVE); Benzodiazepines NEGATIVE (NEGATIVE); Cocaine POSITIVE (NEGATIVE); METHAMPHETAM NEGATIVE (NEGATIVE); Methadone NEGATIVE (NEGATIVE); Opiates NEGATIVE (NEGATIVE); Phencyclidine NEGATIVE (NEGATIVE); THC Cannibis NEGATIVE (NEGATIVE)
[2022-03-04 02:59] LABS: Creatine Phosphokinase 304 U/L (26-192)
--- NOTE | 2022-03-04 05:27 | ER ---
Nurse's Notes [facility] Name: Heather Coon Age: 52 yrs Sex: Female : 1970 Arrival Date: 03/04/2022 Time: 00:12 Bed 4 Private MD: Diagnosis: Other seizures;Alcohol use, unspecified with intoxication;Cocaine abuse with intoxication, unspecified Presentation: 03/04 00:15 Chief complaint: Patient states: seizure x 3 pt reports has not been on seizure kl medication x 3 months due to finances. 01:42 Coronavirus screen: Vaccine status: Patient reports receiving the 2nd dose of the covid kl vaccine. Ebola Screen: Patient negative for fever greater than or equal to 101.5 degrees Fahrenheit, and additional compatible Ebola Virus Disease symptoms. Initial Sepsis Screen: Does the patient meet any 2 criteria? No. Patient's initial sepsis screen is negative. Does the patient have a suspected source of infection? No. Patient's initial sepsis screen is negative. Risk Assessment: Do you want to hurt yourself or someone else? Patient reports no desire to harm self or others. Onset of symptoms was March 03, 2022 at 19:00. 01:42 Method Of Arrival: EMS: [facility] 01:42 Acuity: ANDER 3 01:43 Note seizure activity noted approximately 1 minute in length MD at bedside. 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 - Social history:: Smoking status: Patient reports the use of cigarette tobacco products, smokes one pack cigarettes per day. Screenin:59 Abuse screen: Denies threats or abuse. Nutritional screening: No deficits noted. Tuberculosis screening: No symptoms or risk factors identified. Fall Risk No fall in past 12 months (0 pts). Secondary diagnosis (15 points) seizures, IV access (20 points). Ambulatory Aid- None/Bed Rest/Nurse Assist (0 pts). Gait- Normal/Bed Rest/Wheelchair (0 pts) Mental Status- Oriented to own ability (0 pts). Total Costello Fall Scale indicates Low Risk Score (25-44 pts). Fall prevention measures have been instituted. Side Rails Up X 2 Frequent Obs/Assesments occuring Family Present and informed to notify staff if they need to leave bedside As available Patient and Family Educated on Fall Prevention Program and strategies. Assessment: 00:15 General: Appears uncomfortable, well developed, well nourished, Behavior is calm, kl cooperative, Smells of alcohol. Pain: Complains of pain in generalized body. 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 Paresis in right hand(s) arm(s) leg(s) Speech pt reports drinking alcohol . Facial symmetry appears normal, Pupils are PERRLA, Seizure activity reported prior to arrival. Type of seizure: grand mal seizure. Seizure lasted approximately 1 minutes. pt reports 1st seizure at 7 pm noticed some right arm weakness and parasthesia friends came over pt drank approx 5 beers had another seizure at approx 9pm EMS reports pt has seizure while enrout. Cardiovascular: No deficits noted. Heart tones S1 S2 Capillary refill < 3 seconds Rhythm is sinus rhythm. Respiratory: No deficits noted. Airway is patent Trachea midline Respiratory effort is even, unlabored, Breath sounds are clear Parent/caregiver reports the patient having cough that is non-productive, x 2 weeks. GI: No deficits noted. No signs and/or symptoms were reported involving the gastrointestinal system. : No deficits noted. No signs and/or symptoms were reported regarding the genitourinary system. EENT: No deficits noted. No signs and/or symptoms were reported regarding the EENT system. Derm: Rash noted that is red, on right arm and left arm. Musculoskeletal: No deficits noted. No signs and/or symptoms reported regarding the musculoskeletal system. Vital Signs: 00:15 BP 138 / 87; Pulse 82; Resp 18; Temp 98.3(TE); Pulse Ox 97% on R/A; kl 01:09 Weight 91.1 kg (M); Height 5 ft. 3 in. (160.02 cm) (R); kl 02:29 BP 113 / 67; Pulse 108; Resp 18; Pulse Ox 92% on R/A; kl 03:30 BP 136 / 62; Pulse 103; Resp 20; Pulse Ox 97% ; Pain 0/10; kl 04:30 BP 145 / 76; Pulse 101; Pulse Ox 96% ; kl 05:47 BP 138 / 70; Pulse 97; Resp 20; Pulse Ox 97% ; Pain 0/10; kl 01:09 Body Mass Index 35.58 (91.10 kg, 160.02 cm) kl Anderson Coma Score: 00:15 Eye Response: spontaneous(4). Verbal Response: oriented(5). Motor Response: obeys kl commands(6). Total: 15. ED Course: 00:12 Patient arrived in ED. mw2 00:28 Fazal Frey MD is Attending Physician. 7 00:40 Inserted saline lock: 20 gauge in right antecubital area, using aseptic technique. kl Blood collected. 00:51 CT Head Brain wo Cont In Process Unspecified. EDMS 01:17 Chest Single View XRAY In Process Unspecified. EDMS 01:43 Triage completed. kl 02:29 No apparent distress. Appears to be sleeping. Awaiting lab results. kl 03:30 No apparent distress. Appears to be sleeping. kl 05:25 Javier Ireland MD is Referral Physician. 7 05:30 No apparent distress. Resting quietly. Appears to be sleeping. kl 05:45 No provider procedures requiring assistance completed. IV discontinued, intact, kl bleeding controlled, No redness/swelling at site. Pressure dressing applied. 05:48 Patient has correct armband on for positive identification. kl 06:13 Arm band placed on right wrist. kl Administered Medications: 01:39 Drug: Zofran (Ondansetron) 4 mg Route: IVP; Site: right antecubital; kl 05:49 Follow up: Response: Marked relief of symptoms kl 01:39 Drug: Keppra (levETIRAcetam) 1000 mg Route: IV; Rate: per protocol; Site: right kl antecubital; 01:45 Follow up: Response: Marked relief of symptoms; IV Status: Completed infusion; IV kl Intake: 250ml 01:40 Drug: Banana Bag - (NS 0.9% 1000 ml, foLIC Acid 1 mg, Thiamine 100 mg, Multivitamin 1 kl amp) Route: IV; Rate: calculated rate; Site: right antecubital; 02:57 Follow up: Response: No adverse reaction; IV Intake: 1000ml kl 01:42 Not Given (Other Intervention Used): NS 0.9% 1000 ml IV at 1000 ml once kl Medication: 06:13 VIS not applicable for this client. kl Intake: 01:45 IV: 250ml; Total: 250ml. kl 02:57 IV: 1000ml; Total: 1250ml. Outcome: 05:27 Discharge ordered by MD. hall 06:12 Discharged to home via wheelchair, with significant other. 06:12 Condition: improved 06:12 Discharge instructions given to patient, Instructed on discharge instructions, follow up and referral plans. medication usage, Demonstrated understanding of instructions, follow-up care, medications, Prescriptions given X 1. 06:13 Patient left the ED. Signatures: Dispatcher [employer] Lisette Lomas RN RN kl [place], MyKena mw2 Fazal Frey MD MD [id number]
--- NOTE | 2022-03-04 05:28 | EDPHYS ---
Physician Documentation [facility] Name: Heather Coon Age: 52 yrs Sex: Female : 1970 Arrival Date: 03/04/2022 Time: 00:12 Bed 4 Private MD: ED Physician Fazal Frey HPI: 03/04 01:04 This 52 yrs old Female presents to ER via Unassigned with complaints of Seizures. mh7 01:04 The patient presents with a history of multiple seizures, a total of 3, the episode(s) mh7 was witnessed, by a friend. Character of seizure(s): Loss of consciousness: the patient experienced loss of consciousness, brief, Motor activity: generalized, shaking all over, Incontinence: none, Apnea: the patient did not experience apnea, Circulation: the patient did not experience evidence of pulse disturbance, Eye movements: are unknown. 01:04 Seizure onset: 6 hour(s) ago. mh7 01:04 Context: the seizure(s) was witnessed, by a friend, occurred at home, occurred while mh7 the patient was sitting, Contributing factors: missed recent doses of medications, recent alcohol abuse. Seizure Hx: Original onset: longstanding. Associated injury: The patient did not suffer any apparent associated injury. Current symptoms: Currently, the patient is not experiencing any symptoms, the patient feels back to baseline. The patient has experienced similar episodes in the past, multiple times. Patient states she has not taken her Keppra in at least 6 months. She admits to drinking ETOH tonight.. 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 - Social history:: Smoking status: Patient reports the use of cigarette tobacco products, smokes one pack cigarettes per day. ROS: 01:04 Constitutional: Negative for fever, chills, and weight loss, Eyes: Negative for injury, mh7 pain, redness, and discharge, ENT: Negative for injury, pain, and discharge, Neck: Negative for injury, pain, and swelling, Cardiovascular: Negative for chest pain, palpitations, and edema, Respiratory: Negative for shortness of breath, cough, wheezing, and pleuritic chest pain, Abdomen/GI: Negative for abdominal pain, nausea, vomiting, diarrhea, and constipation, Back: Negative for injury and pain, : Negative for injury, bleeding, discharge, and swelling, MS/Extremity: Negative for injury and deformity, Skin: Negative for injury, rash, and discoloration, Psych: Negative for depression, anxiety, suicide ideation, homicidal ideation, and hallucinations, Allergy/Immunology: Negative for hives, rash, and allergies, Endocrine: Negative for neck swelling, polydipsia, polyuria, polyphagia, and marked weight changes, Hematologic/Lymphatic: Negative for swollen nodes, abnormal bleeding, and unusual bruising. Exam: 01:04 Head/Face: Normocephalic, atraumatic. Eyes: Pupils equal round and reactive to light, mh7 extra-ocular motions intact. Lids and lashes normal. Conjunctiva and sclera are non-icteric and not injected. Cornea within normal limits. Periorbital areas with no swelling, redness, or edema. Neck: Trachea midline, no thyromegaly or masses palpated, and no cervical lymphadenopathy. Supple, full range of motion without nuchal rigidity, or vertebral point tenderness. No Meningismus. Chest/axilla: Normal chest wall appearance and motion. Nontender with no deformity. No lesions are appreciated. Cardiovascular: Regular rate and rhythm with a normal S1 and S2. No gallops, murmurs, or rubs. Normal PMI, no JVD. No pulse deficits. Respiratory: Lungs have equal breath sounds bilaterally, clear to auscultation and percussion. No rales, rhonchi or wheezes noted. No increased work of breathing, no retractions or nasal flaring. Abdomen/GI: Soft, non-tender, with normal bowel sounds. No distension or tympany. No guarding or rebound. No evidence of tenderness throughout. Back: No spinal tenderness. No costovertebral tenderness. Full range of motion. Skin: Warm, dry with normal turgor. Normal color with no rashes, no lesions, and no evidence of cellulitis. MS/ Extremity: Pulses equal, no cyanosis. Neurovascular intact. Full, normal range of motion. 01:04 Constitutional: The patient appears in no acute distress, alert, awake, uncomfortable. 01:04 Neuro: Orientation: is normal, Mentation: is normal, Memory: is normal, Cranial nerves: grossly normal, Cerebellar function: is grossly normal, Motor: is normal, Sensation: is normal, Gait: not tested. seizure activity, is not displayed by the patient, Abnormal movements: there are no abnormal movements. Vital Signs: 00:15 BP 138 / 87; Pulse 82; Resp 18; Temp 98.3(TE); Pulse Ox 97% on R/A; kl 01:09 Weight 91.1 kg (M); Height 5 ft. 3 in. (160.02 cm) (R); kl 02:29 BP 113 / 67; Pulse 108; Resp 18; Pulse Ox 92% on R/A; kl 03:30 BP 136 / 62; Pulse 103; Resp 20; Pulse Ox 97% ; Pain 0/10; kl 04:30 BP 145 / 76; Pulse 101; Pulse Ox 96% ; kl 05:47 BP 138 / 70; Pulse 97; Resp 20; Pulse Ox 97% ; Pain 0/10; kl 01:09 Body Mass Index 35.58 (91.10 kg, 160.02 cm) kl Nicole Coma Score: 00:15 Eye Response: spontaneous(4). Verbal Response: oriented(5). Motor Response: obeys kl commands(6). Total: 15. MDM: 05:20 Differential diagnosis: cerebral vascular accident, drug overdose, seizure, alcohol mh7 intoxication, paresthesia. Data reviewed: vital signs, nurses notes, EMS record, lab test result(s), CBC, drug level(s), acetaminophen, alcohol, salicylate, electrolytes, urinalysis, urine drug screen, UPT: negative EKG, radiologic studies, CT scan. Data interpreted: Pulse oximetry: on room air is 97 %. Interpretation: normal. Counseling: I had a detailed discussion with the patient and/or guardian regarding: the historical points, exam findings, and any diagnostic results supporting the discharge/admit diagnosis, the presence of at least one elevated blood pressure reading (>120/80) during this emergency department visit, lab results, radiology results, the need for outpatient follow up, a neurologist, to return to the emergency department if symptoms worsen or persist or if there are any questions or concerns that arise at home. Response to treatment: the patient's symptoms have resolved after treatment, the patient's blood pressure is in an acceptable range, mental status has returned to baseline, the patient no longer shows bradycardia, the patient is not short of breath, the patient is not tachycardic, the patient's pain is gone, the patient's temperature has normalized. ED course: Feels better, NAD, VSS, HR=95, no focal neurological deficits. No seizures, headache, SOB, nausea, vomiting, numbness/tingling, or other complaints. Tolerating PO intake without difficulty. Discussed all test results and findings. Advised patient to take her seizure medication and to stop use of alcohol and cocaine.. 05:27 Patient medically screened. 03/04 00:40 Order name: Acetaminophen; Complete Time: 03:15 [facility] 03/04 00:40 Order name: Basic Metabolic Panel; Complete Time: 03: [facility] 03/04 00:40 Order name: CBC with Diff; Complete Time: 35 03/04 00:40 Order name: ETOH Level; Complete Time: 01:56 03/04 00:40 Order name: Hepatic Function; Complete Time: 03:15 [facility] 03/04 00:40 Order name: PT-INR; Complete Time: 35 03/04 00:40 Order name: Ptt, Activated; Complete Time: :35 03/04 00:40 Order name: Salicylate; Complete Time: :35 [facility] 03/04 00:40 Order name: Urine Drug Screen; Complete Time: 02:41 03/04 00:59 Order name: COVID-19 SARS RT PCR (Document "Date of Onset" if Symptomatic); Complete [facility] Time: 03/04 01:11 Order name: Phosphorus; Complete Time: 03:15 [facility] 03/04 01:11 Order name: Magnesium; Complete Time: 03:15 [facility] 03/04 00:40 Order name: EKG; Complete Time: 00:48 03/04 00:40 Order name: EKG - Nurse/Tech [facility] 03/04 00:40 Order name: IV Saline Lock [facility] 03/04 00:40 Order name: Labs collected and sent [facility] 03/04 00:40 Order name: Suicide Screening ([place]) [facility] 03/04 00:40 Order name: Urine Dipstick-Ancillary (obtain specimen) [facility] 03/04 00:40 Order name: Urine Test (obtain specimen) [facility] 03/04 00:41 Order name: CT Head Brain wo Cont [facility] 03/04 00:58 Order name: Chest Single View XRAY [facility] 03/04 02:03 Order name: Urine Dipstick-Ancillary; Complete Time: 02:18 [facility] 03/04 02:47 Order name: Creatine Phosphokinase; Complete Time: 03:15 [facility] Administered Medications: 01:39 Drug: Zofran (Ondansetron) 4 mg Route: IVP; Site: right antecubital; kl 05:49 Follow up: Response: Marked relief of symptoms kl 01:39 Drug: Keppra (levETIRAcetam) 1000 mg Route: IV; Rate: per protocol; Site: right antecubital; 01:45 Follow up: Response: Marked relief of symptoms; IV Status: Completed infusion; IV kl Intake: 250ml 01:40 Drug: Banana Bag - (NS 0.9% 1000 ml, foLIC Acid 1 mg, Thiamine 100 mg, Multivitamin 1 kl amp) Route: IV; Rate: calculated rate; Site: right antecubital; 02:57 Follow up: Response: No adverse reaction; IV Intake: 1000ml kl 01:42 Not Given (Other Intervention Used): NS 0.9% 1000 ml IV at 1000 ml once kl Disposition Summary: 03/04/22 05:27 Discharge Ordered Location: Home [facility] Problem: an acute exacerbation [facility] Symptoms: have improved [facility] Condition: Stable [facility] Diagnosis - Other seizures 7 - Alcohol use, unspecified with intoxication mh7 - Cocaine abuse with intoxication, unspecified mh7 Followup: [facility] - With: Private Physician - When: 1 - 2 days - Reason: Worsening of condition, Recheck today's complaints, Continuance of care, Re-evaluation by your physician Followup: [facility] - With: Jaiver Ireland MD - When: 1 - 2 days - Reason: Worsening of condition, Recheck today's complaints, Continuance of care, Re-evaluation by your physician Discharge Instructions: - Discharge Summary Sheet 7 - Cocaine Use Disorder 7 - Alcohol Intoxication, [id number] [facility] - Seizure, Adult, [id number] [facility] Forms: - Medication Reconciliation Form [facility] - Thank You Letter [facility] - Antibiotic Education [facility] - Prescription Opioid Use [facility] Prescriptions: - Keppra 500 mg Oral Tablet - take 1 tablet by ORAL route every 12 hours; 60 tablet; Refills: 0, Product [facility] Selection Permitted Signatures: Dispatcher [employer] EDMS Lisette Currie RN RN Jose Hernandez, BIOINFORMATICS ASSOCIATE-C BIOINFORMATICS ASSOCIATE-Cla1 Fazal Frey MD MD [facility] Corrections: (The following items were deleted from the chart) 01:08 01:07 MAGNESIUM+C.LAB.BRZ ordered. EDMS EDMS 01:08 01:07 PHOSPHORUS+C.LAB.BRZ ordered. EDMS EDMS 02:47 02:42 CREATINE PHOSPHOKINASE+C.LAB.BRZ ordered. EDMS EDMS
[2022-03-04 06:30] VITALS: TEMP 98.3
[2022-03-04 06:56] VITALS: BP 138/70; O2SAT 97
--- NOTE | 2022-03-04 08:11 | EKG ---
Test Date: 2022-03-04 Test Time: 03:15:31 Airplane Technician: LAURA MEASUREMENT RESULTS: Intervals: Rate: 98 ME: 156 QRSD: 88 QT: 398 QTc: 508 [place]: P: 62 ME: 156 QRS: 87 T: 61 INTERPRETIVE STATEMENTS: Normal sinus rhythm Low voltage QRS Nonspecific T wave abnormality Abnormal ECG Compared to ECG 12/27/2021 21:20:14 Low QRS voltage now present T-wave abnormality now present Right-axis deviation no longer present Electronically Signed On 03-04-22 08:10:55 CDT by Migel Warren
--- NOTE | 2022-03-04 18:08 | RAD REPORT ---
EXAM DESCRIPTION: CT - Head Brain Wo Cont - 03/04/2022 6:41 am ADDENDUM #1 These critical findings were discussed with the Dr. Frey on 03/04/2022 at 1:19 AM central time. Electronically signed by: Della Kulkarni DO 03/04/2022 2:17 AM CDT End of Addendum EXAM DESCRIPTION: CT head without IV contrast CLINICAL HISTORY: 52 years Female Seizure disorder, no clinical change TECHNIQUE: Multiple axial CT images of the brain were performed followed by sagittal and coronal rec onstructed images. The CT study is performed according to ALARA (as low as reasonably achievable) or ALARA/IMAGE GENTLY, with automatic adjustment of mA and/or kV according to patient size. Performed on: 03/04/2022 at 12:34 AM COMPARISON: Head CT performed on 12/27/2021. Brain MRI report from 12/10/2021. The images were unavail able for review. FINDINGS: Brain: There is no evidence of mass, acute mass effect or midline shift. There are no acut e extra-axial fluid collections. There is no evidence of acute intracranial hemorrhage. The cerebra l sulci and ventricles are normal in size and configuration. There is very mild patchy periventricu lar low attenuation which is nonspecific but can be seen with chronic microangiopathy. There is no ev idence of a hyperdense MCA. Paranasal Sinuses and Mastoids: There is moderate mucosal thickening of the left maxillary sinus. The mastoid air cells are clear. Orbits: The orbital contents are grossly unremarkable. Bones: No acute osseous abnormalities are identified. Soft Tissues: No focal soft tissue abnormalities are identified. IMPRESSION: 1. No evidence of acute intracranial pathology. 2. There is very mild patchy periventricular low attenuation which is nonspecific but can be seen w ith chronic microangiopathy. 3. Moderate mucosal thickening of the left maxillary sinus. Electronically signed by: Della Kulkarni DO 03/04/2022 1:13 AM CDT Due to temporary technical issues with the PACS/Fluency reporting system, reports are being signed by the in house radiologists without review as a courtesy to insure prompt reporting. The interpreting radiologist is fully responsible for the content of the report.
--- NOTE | 2022-03-04 18:16 | RAD REPORT ---
EXAM DESCRIPTION: RAD - Chest Single View - 03/04/2022 1:16 am CLINICAL HISTORY: 2 years Female, COUGH COMPARISON: Chest radiograph dated 12/27/2021 FINDINGS: No focal lung consolidation. No pleural effusion. No pneumothorax. Cardiomediastinal silhouette is within normal limits. No acute osseous abnormality. IMPRESSION: No pulmonary opacities identified. Please note that chest radiographs have low sensitivi ty for subtle groundglass opacities. Electronically signed by: Gasper Bates DO 03/04/2022 1:34 AM CDT Due to temporary technical issues with the PACS/Fluency reporting system, reports are being signed by the in house radiologists without review as a courtesy to insure prompt reporting. The interpreting radiologist is fully responsible for the content of the report.
== END 2022-03-04 06:13 | disposition home or self-care (01) ==
LOC: ER 00:01
DX: G40.89 Other seizures (principal); F14.129 Cocaine abuse with intoxication, unspecified; F10.929 Alcohol use, unspecified with intoxication, unspecified; I10 Essential (primary) hypertension; F17.210 Nicotine dependence, cigarettes, uncomplicated; F31.9 Bipolar disorder, unspecified; Z88.8 Allergy status to other drugs, medicaments and biological substances; Z91.018 Allergy to other foods; Z20.822 Contact with and (suspected) exposure to COVID-19
CPT/HCPCS: 36415; 70450; 71045; 80048; 80076; 80307; 80320; 80329; 81003; 82550; 83735; 84100; 85025; 85610; 85730; 93005; 96374; 96375; 99284; J1953; J2405; J3360; J3411; J7030; J7050; U0003

== ENCOUNTER 2022-03-09 11:05 | Emergency (ER) | payer SELFPAY ==
--- OUTSIDE RECORDS SUMMARY | 2022-03-09 11:23 | XMS REPORT | Continuity of Care Document ---
:1970 Author Organization [facility] t Address [address] [place] [address] Care Team Providers Name Role Phone Pcp, Patient Does Not Have A Primary Care Physician [id number] Vaccine, Chung Esteban Pedi Attending Clinician Unavailable Shilpa Frederick MD Attending Clinician SHILPA FREDERICK Attending Clinician Unavailable NICHELLE ALLISON Attending Clinician Unavailable Sav Rondon MD Attending Clinician Nichelle Bishop Attending Clinician Doctor Unassigned, [place] Attending Clinician Unavailable Miky Nava RN Attending [...] tobacco Cigar Smoker Univ ersity of use [facility] Exposure to 2021-11-13 2021-11-23 Not sure [facility] SARS-CoV-2 (event) 00:00:00 15:13:00 [facility] Alcohol intake 2021-11-23 2021-11-23 0 /d University of 00:00:00 00:00:00 [facility] Cigarettes smoked 2015-11-21 2015-11-21 Univers ity of current (pack per 00:00:00 00:00:00 [place] ) - Reported Branch Cigarette 2015-11-21 2015-11-21 University of pack-years 00:00:00 00:00:00 [facility] Tobacco use and 2015-11-21 2015-11-21 Smokeless Universit y of exposure 00:00:00 00:00:00 tobacco non-user [facility] Sex Assigned At [birth year] [facility] y of 00:00:00 00:00:00 [facility] Smoking Status Start Date Stop Date Source Smokes tobacco daily 2015-11-21 00:00:00 Univers ity of [facility] Medications Ordered Filled Start Stop Current [...] IV ity of succ 01:57: 02:11 Push, [place] (SOLU-MEDRO 00 :00 ONCE, 1 Medic al [...] IV ity of succ 01:57: 02:11 [place], [place] (SOLU-MEDRO 00 :00 ONCE, 1 Medic al L) dose, Sat Branch injection 03/16/21 at 125 mg 2100, STAT ipratropium No 3mL 3 mL, Univ ers -albuteroL 03-17 Inhalation it y of (DUONEB) 01:57: 02:15 , ONCE, 1 Javier as 0.5 mg-3 00 :00 dose, Sat Medica l mg(2.5 mg 03/16/21 at Bran ch base)/3 mL 2100, MICHAEL nebulizer solution 3 mL levoFLOXaci No [id number] 500mg Take 1 Univers n 500 mg 03-17 tablet by ity o f tablet 00:00: 04:59 mouth [place] 00 :00 daily for Medical 6 days. Branch levoFLOXaci 2020- No [id number] 500mg Take 1 Univers n 500 mg 03-17 tablet by ity o f tablet 00:00: 04:59 mouth [place] 00 :00 daily for Medical 6 days. Branch levoFLOXaci 2020- No [id number] 500mg Take 1 Univers n 500 mg 03-17 tablet by ity o f tablet 00:00: 04:59 mouth [place] 00 :00 daily for Medical 6 days. Branch levoFLOXaci No [id number] 500mg Take 1 Univers n 500 mg 03-17 tablet by ity o f tablet 00:00: 04:59 mouth [place] 00 :00 daily for Medical 6 days. Branch predniSONE 2020- No [id number] 30mg Take 3 Univers 10 mg 03-17 tablets by ity of tablet 00:00: 04:59 mouth [place] 00 :00 daily for Medical 4 days. [place] predniSONE 2020- No [id number] 30mg Take 3 Univers 10 mg 03-17 tablets by ity of tablet 00:00: 04:59 mouth [place] 00 :00 daily for Medical 4 days. Branch predniSONE 2020- No [id number] 30mg Take 3 Univers 10 mg 03-17 tablets by ity of tablet 00:00: 04:59 mouth [place] 00 :00 daily for Medical 4 days. [place] predniSONE 2020- No [id number] 30mg Take 3 Univers 10 mg 03-17 tablets by ity of tablet 00:00: 04:59 mouth [place] 00 :00 daily for Medical 4 days. [place] albuterol 2020- No [id number] 4{puff} 4 Puff, Univers (VENTOLIN) 03-15 Inhalation it y of inhaler 4 01:45: 00:44 , [place], [place] :[place] dose, [place] Medical 03/14/21 at [place] 2044, Routine dexamethaso 2020- No [id number] 10mg 10 mg, Univers ne 03-15 Intramuscu ity of (DECADRON) 01:45: 00:45 lar, ONCE, [place] injection 00 :00 1 dose, Medical 10 mg [facility] 03/14/21 at 5, Routine albuterol Yes [id number] 2.5mg Inhale 3 Univers 2.5 mg /3 8-27 mL every 4 ity of mL (0.083 00:00: (four) [place] %) 00 hours as Medical nebulizer needed for Bran ch solution Wheezing or Shortness of Breath. albuterol Yes [id number] 2.5mg Inhale 3 Univers 2.5 mg /3 8-27 mL every 4 ity of mL (0.083 00:00: (four) [place] %) 00 hours as Medical nebulizer needed for Bran ch solution Wheezing or Shortness of Breath. albuterol 2020-0 Yes [id number] 2.5mg Inhale 3 Univers 2.5 mg /3 8-27 mL every 4 ity of mL (0.083 00:00: (four) [place] %) 00 hours as Medical nebulizer needed for Bran ch solution Wheezing or Shortness of Breath. albuterol 2020-0 Yes [id number] 2.5mg Inhale 3 Univers 2.5 mg /3 8-27 mL every 4 ity of mL (0.083 00:00: (four) [place] %) 00 hours as Medical nebulizer needed for Bran ch solution Wheezing or Shortness of Breath. albuterol 2020-0 Yes [id number] 2.5mg Inhale 3 Univers 2.5 mg /3 8-27 mL every 4 ity of mL (0.083 00:00: (four) [place] %) 00 hours as Medical nebulizer needed for Bran ch solution Wheezing or Shortness of Breath. albuterol 2020-0 Yes [id number] 2.5mg Inhale 3 Univers 2.5 mg /3 8-27 mL every 4 ity of mL (0.083 00:00: (four) [place] %) 00 hours as Medical nebulizer needed for Bran ch solution Wheezing or Shortness of Breath. albuterol 2020-0 Yes [id number] 2.5mg Inhale 3 Univers 2.5 mg /3 8-27 mL every 4 ity of mL (0.083 00:00: (four) [place] %) 00 hours as Medical nebulizer needed for Bran ch solution Wheezing or Shortness of Breath. albuterol 2020-0 Yes [id number] 2.5mg Inhale 3 Univers 2.5 mg /3 8-27 mL every 4 ity of mL (0.083 00:00: (four) [place] %) 00 hours as Medical nebulizer needed for Bran ch solution Wheezing or Shortness of Breath. albuterol 2020-0 Yes [id number] 2.5mg Inhale 3 Univers 2.5 mg /3 8-27 mL every 4 ity of mL (0.083 00:00: (four) [place] %) 00 hours as Medical nebulizer needed for Bran ch solution Wheezing or Shortness of Breath. albuterol Yes [id number] 2.5mg Inhale 3 Univers 2.5 mg /3 8-27 mL every 4 ity of mL (0.083 00:00: (four) [facility]) 00 hours as Medical nebulizer needed for [...] (KEPPRA 8-03 mouth. ity of ORAL) 19:45: [address] levetiracet Yes Take by Uni vers am (KEPPRA 8-03 mouth. ity of ORAL) 19:45: [address] levetiracet Yes Take by Uni vers am (KEPPRA 8-03 mouth. ity of ORAL) 19:45: [address] levetiracet Yes Take by Uni vers am (KEPPRA 8-03 mouth. ity of ORAL) 19:45: [address] levetiracet Yes Take by Uni vers am (KEPPRA 8-03 mouth. ity of ORAL) 19:45: [address] levetiracet Yes Take by Uni vers am (KEPPRA 8-03 mouth. ity of ORAL) 19:45: [address] LISINOPRIL- 2020- No Take by Un lois HYDROCHLORO 02-19 mouth. ity o f THIAZIDE 19:41: 00:00 [place] ORAL 15 :00 [facility] Branch dicyclomine 2020- No 20mg [...] Tue Medica l NaCl 0.9% 02/19/21 at [facility] h (NS) 50 mL 1415, 50 [...] at Branch 1200, MICHAEL iopamidol 2020- No [id number] 100mL 100 mL, Univers (ISOVUE 02-19 Intravenou ity o f 370-500 mL) 16:35: 16:45 s, ONCE, 1 [place] injection 00 :00 dose, Tue Medic al 100 mL 02/19/21 at Branch 1145, Routine levetiracet Yes Take by Un lois am (KEPPRA 8-03 mouth. ity of ORAL) 14:45: [address] levetiracet Yes Take by Uni vers am (KEPPRA 8-03 mouth. ity of ORAL) 14:45: [address] levetiracet Yes Take by Uni vers am (KEPPRA 8-03 mouth. ity of ORAL) 14:45: [address] Branch levetiracet 2020-0 Yes Take by Uni vers am (KEPPRA 8-03 mouth. ity of ORAL) 14:45: [address] Branch levetiracet 2020-0 Yes Take by Uni vers am (KEPPRA 8-03 mouth. ity of ORAL) 14:45: [address] Branch proMETHazin 2020-0 Yes [id number] 25mg Take 1 Univers e 25 mg 8-03 tablet by ity of tablet 00:00: mouth [place] 00 every 6 Medical (six) Branch hours as needed for Nausea and Vomiting (N/V). dicyclomine 2020-0 Yes [id number] 20mg Take 1 Univers 20 mg 8-03 tablet by ity of tablet 00:00: mouth (four) Medical times Branch daily as needed for Abdominal pain. proMETHazin 2020-0 Yes [id number] 25mg Take 1 Univers e 25 mg 8-03 tablet by ity of tablet 00:00: mouth [place] 00 every 6 Medical (six) Branch hours as needed for Nausea and Vomiting (N/V). dicyclomine 2020-0 Yes [id number] 20mg Take 1 Univers 20 mg 8-03 tablet by ity of tablet 00:00: mouth (four) Medical times Branch daily as needed for Abdominal pain. proMETHazin 2020-0 Yes [id number] 25mg Take 1 Univers e 25 mg 8-03 tablet by ity of tablet 00:00: mouth [place] 00 every 6 Medical (six) Branch hours as needed for Nausea and Vomiting (N/V). dicyclomine 2020-0 Yes [id number] 20mg Take 1 Univers 20 mg 8-03 tablet by ity of tablet 00:00: mouth 4 00 (four) Medical times Branch daily as needed for Abdominal pain. proMETHazin 2020-0 Yes [id number] 25mg Take 1 Univers e 25 mg 8-03 tablet by ity of tablet 00:00: mouth [place] 00 every 6 Medical (six) Branch hours as needed for Nausea and Vomiting (N/V). dicyclomine 202-0 Yes [id number] 20mg Take 1 Univers 20 mg 8-03 tablet by ity of tablet 00:00: mouth 4 [place] 00 (four) Medical times Branch daily as needed for Abdominal pain. proMETHazin 2020-0 Yes [id number] 25mg Take 1 Univers e 25 mg 8-03 tablet by ity of tablet 00:00: mouth [place] 00 every 6 Medical (six) Branch hours as needed for Nausea and Vomiting (N/V). dicyclomine 2020-0 Yes [id number] 20mg Take 1 Univers 20 mg 8-03 tablet by ity of tablet 00:00: mouth 4 00 (four) Medical times Branch daily as needed for Abdominal pain. proMETHazin 2020-0 Yes [id number] 25mg Take 1 Univers e 25 mg 8-03 tablet by ity of tablet 00:00: mouth [place] 00 every 6 Medical (six) Branch hours as needed for Nausea and Vomiting (N/V). dicyclomine 2020-0 Yes [id number] 20mg Take 1 Univers 20 mg 8-03 tablet by ity of tablet 00:00: mouth 4 (four) Medical times Branch daily as needed for Abdominal pain. proMETHazin 2020-0 Yes [id number] 25mg Take 1 Univers e 25 mg 8-03 tablet by ity of tablet 00:00: mouth [place] 00 every 6 Medical (six) Branch hours as needed for Nausea and Vomiting (N/V). dicyclomine 2020-0 Yes [id number] 20mg Take 1 Univers 20 mg 8-03 tablet by ity of tablet 00:00: mouth (four) Medical times Branch daily as needed for Abdominal pain. proMETHazin 2020-0 Yes [id number] 25mg Take 1 Univers e 25 mg 8-03 tablet by ity of tablet 00:00: mouth [place] 00 every 6 Medical (six) Branch hours as needed for Nausea and Vomiting (N/V). dicyclomine 2020-0 Yes [id number] 20mg Take 1 Univers 20 mg 8-03 tablet by ity of tablet 00:00: mouth 4 00 (four) Medical times Branch daily as needed for Abdominal pain. proMETHazin 202-0 Yes [id number] 25mg Take 1 Univers e 25 mg 8-03 tablet by ity of tablet 00:00: mouth [place] 00 every 6 Medical (six) Branch hours as needed for Nausea and Vomiting (N/V). dicyclomine 2021-0 Yes [id number] 20mg Take 1 Univers 20 mg 8-03 tablet by ity of tablet 00:00: mouth [place] (four) Medical times Branch daily as needed for Abdominal pain. proMETHazin 0 Yes [id number] 25mg Take 1 Univers e 25 mg 8-03 tablet by ity of tablet 00:00: mouth 00 every 6 Medical (six) Branch hours as needed for Nausea and Vomiting (N/V). dicyclomine 0 Yes [id number] 20mg Take 1 Univers 20 mg 8-03 tablet by ity of tablet 00:00: mouth (four) Medical times Branch daily as needed for Abdominal pain. proMETHazin 0 Yes [id number] 25mg Take 1 Univers e 25 mg 8-03 tablet by ity of tablet 00:00: mouth [place] 00 every 6 Medical (six) Branch hours as needed for Nausea and Vomiting (N/V). dicyclomine Yes [id number] 20mg Take 1 Univers 20 mg 8-03 tablet by ity of tablet 00:00: mouth [place] (four) Medical times Branch daily as needed for Abdominal pain. ZONISAMIDE Yes TAKE 1 Unive rs 100 mg 4-29 CAPSULE BY ity of capsule 00:00: MOUTH [place] 00 TWICE A Medical DAY Branch ZONISAMIDE 2020- No TAKE 1 Univ ers 100 mg 4-29 08-03 CAPSULE BY ity of capsule 00:00: 00:00 MOUTH [place] 00 :00 TWICE A Medical DAY Branch ondansetron Yes 4mg Take 4 mg U nivers (ZOFRAN) 4 7-24 by mouth ity o f mg tablet 20:05: every 8 [place] (eight) Medical hours as Branch needed. pantoprazol Yes 40mg Take 40 mg Univers e 7-24 by mouth ity of (PROTONIX) 20:05: daily. [place] 40 mg 01 Medical tablet Branch ondansetron Yes 4mg Take 4 mg U nivers (ZOFRAN) 4 7-24 by mouth ity o f mg tablet 20:05: every 8 [place] (eight) Medical hours as Branch needed. pantoprazol Yes 40mg Take 40 mg Univers e 7-24 by mouth ity of (PROTONIX) 20:05: daily. [place] 40 mg EC 01 Medical tablet Branch [...] by mouth ity of (PROTONIX) 20:05: daily. [place] 40 mg EC Medical tablet Branch ondansetron 2018-0 Yes 4mg Take 4 mg U nivers (ZOFRAN) 4 7-24 by mouth ity o f mg tablet 20:05: every 8 [place] (eight) Medical hours as Branch needed. pantoprazol 2018-0 Yes 40mg Take 40 mg Univers e 7-24 by mouth ity of (PROTONIX) 20:05: daily. [place] 40 mg EC Medical tablet Branch ondansetron 2018-0 Yes 4mg Take 4 mg U nivers (ZOFRAN) 4 7-24 by mouth ity o f mg tablet 20:05: every 8 (eight) Medical hours as Branch needed. pantoprazol 2018-0 Yes 40mg Take 40 mg Univers e 7-24 by mouth ity of (PROTONIX) 20:05: daily. [place] 40 mg EC Medical tablet Branch ondansetron 2018-0 Yes 4mg Take 4 mg U nivers (ZOFRAN) 4 7-24 by mouth ity o f mg tablet 20:05: every 8 (eight) Medical hours as Branch needed. pantoprazol 2018-0 Yes 40mg Take 40 mg Univers e 7-24 by mouth ity of (PROTONIX) 20:05: daily. [place] 40 mg EC Medical tablet Branch lisinopril- [...] 7-24 by mouth ity of 19:58: daily. [place] [address] Medical Branch loratadine Yes Take by Univ ers (CLARITIN 7-24 mouth ity of LIQUI-GEL) 19:58: daily. [place] 10 mg 14 Medical capsule Branch MULTIVITAMI Yes 1{tbl} Take 1 Tab Univers N ORAL 7-24 by mouth ity of 19:58: daily. [place] [address] Medical Branch loratadine Yes Take by Univ ers (CLARITIN 7-24 mouth ity of LIQUI-GEL) 19:58: daily. [place] 10 mg 14 Medical capsule Branch MULTIVITAMI Yes 1{tbl} Take 1 Tab Univers N ORAL 7-24 by mouth ity of 19:58: daily. [place] [address] Medical Branch loratadine Yes Take by Univ ers (CLARITIN 7-24 mouth ity of LIQUI-GEL) 19:58: daily. [place] 10 mg 14 Medical capsule Branch MULTIVITAMI Yes 1{tbl} Take 1 Tab Univers N ORAL 7-24 by mouth ity of 19:58: daily. [place] [address] Medical Branch loratadine Yes Take by Uni vers (CLARITIN 7-24 mouth ity of LIQUI-GEL) 19:58: daily. [place] 10 mg 14 Medical capsule Branch MULTIVITAMI 2018-0 Yes 1{tbl} Take 1 Tab Univers N ORAL 7-24 by mouth ity of 19:58: daily. [place] 14 Medical Branch loratadine 2018-0 Yes Take by [facility] ers (CLARITIN 7-24 mouth ity of LIQUI-GEL) 19:58: daily. [place] 10 mg 14 Medical capsule Branch MULTIVITAMI 2018-0 Yes 1{tbl} Take 1 Tab Univers N ORAL 7-24 by mouth ity of 19:58: daily. [place] 14 Medical Branch loratadine 2018-0 Yes Take by [facility] ers (CLARITIN 7-24 mouth ity of LIQUI-GEL) 19:58: daily. [place] 10 mg 14 Medical capsule Branch MULTIVITAMI [id number] Yes 1{tbl} Take 1 Tab Univers N ORAL 7-24 by mouth ity of 19:58: daily. [place] [address] Medical Branch loratadine 2018-0 Yes Take by [facility] ers (CLARITIN 7-24 mouth ity of LIQUI-GEL) 19:58: daily. [place] 10 mg 14 Medical capsule Branch ondansetron 2017-0 Yes 4mg Take 4 mg U nivers (ZOFRAN) 4 7-24 by mouth ity o f mg tablet 15:05: every 8 [place] (eight) Medical hours as Branch needed. pantoprazol 2018-0 Yes 40mg Take 40 mg Univers e 7-24 by mouth ity of (PROTONIX) 15:05: daily. [place] 40 mg EC 01 Medical tablet Branch [...] 7-24 by mouth ity of 14:58: daily. [place] [address] Medical Branch loratadine 0 Yes Take by [facility] ers (CLARITIN 7-24 mouth ity of LIQUI-GEL) 14:58: daily. [place] 10 mg 14 Medical capsule Branch MULTIVITAMI 0 Yes 1{tbl} Take 1 Tab Univers N ORAL 7-24 by mouth ity of 14:58: daily. [place] 14 Medical Branch loratadine 0 Yes Take by [facility] ers (CLARITIN 7-24 mouth ity of LIQUI-GEL) 14:58: daily. [place] 10 mg 14 Medical capsule Branch MULTIVITAMI 0 Yes 1{tbl} Take 1 Tab Univers N ORAL 7-24 by mouth ity of 14:58: daily. [place] 14 Medical Branch loratadine 0 Yes Take by Univ ers (CLARITIN 7-24 mouth ity of LIQUI-GEL) 14:58: daily. [place] 10 mg 14 Medical capsule Branch MULTIVITAMI [id number] Yes 1{tbl} Take 1 Tab Univers N ORAL 7-24 by mouth ity of 14:58: daily. [place] 14 Medical Branch loratadine 0 Yes Take by Univ ers (CLARITIN 7-24 mouth ity of LIQUI-GEL) 14:58: daily. [place] 10 mg 14 Medical capsule Branch MULTIVITAMI [id number] Yes 1{tbl} Take 1 Tab Univers N ORAL 7-24 by mouth ity of 14:58: daily. [place] 14 Medical Branch loratadine 2018-0 Yes Take by [facility] ers (CLARITIN 7-24 mouth ity of [...] Immunizations Ordered Filled Immunization Date Status Comments [facility] e Immunization Name Name SARS-COV-2 COVID-19 2022-02-19 Completed Unive rsity of PFIZER BA-SUCROSE 00:00:00 [facility] ([place]) Branch SARS-COV-2 COVID-19 2021-05-24 Completed Unive rsity of PFIZER VACCINE 00:00:00 [facility] Branch SARS-COV-2 COVID-19 2021-05-24 Completed Unive rsity [...] 21:30:00 132 mm[Hg] Univer sity of pressure [facility] Diastolic blood 2021-11-23 21:30:00 76 mm[Hg] Unive rsity of pressure [facility] Heart rate 2021-11-23 21:30:00 95 /min Universi ty of [facility] Respiratory rate 2021-11-23 21:30:00 13 /min Univ ersity of [facility] Oxygen saturation in 2021-11-23 21:30:00 97 /min University of Arterial blood by [facility] Pulse oximetry Branch Body temperature 2021-11-23 20:15:00 37.56 Radha [facility] ersity of [facility] Systolic blood 2021-03-17 03:00:00 117 mm[Hg] Univer sity of [facility] Diastolic blood 2021-03-17 03:00:00 76 mm[Hg] Unive rsity of [facility] Heart rate 2021-03-17 03:00:00 104 /min Universi ty of [facility] Respiratory rate 2021-03-17 03:00:00 28 /min Univ ersity of [facility] Oxygen saturation in 2021-03-17 03:00:00 96 /min University of Arterial blood by [facility] Pulse oximetry Branch Body temperature 2021-03-17 00:39:00 37.11 Radha Univ ersity of [facility] Body height 2021-03-17 00:39:00 160 cm [facility] ty [facility] Body weight 2021-03-17 00:39:00 58.968 kg [facility] BMI 2021-03-17 00:39:00 23.03 kg/m2 [facility] Systolic blood 2021-03-15 00:14:00 149 mm[Hg] Univer sity of pressure [facility] Branch Diastolic blood 2021-03-15 00:14:00 78 mm[Hg] Unive rsity of pressure [facility] Heart rate 2021-03-15 00:14:00 100 /min Universi ty [facility] Body temperature 2021-03-15 00:14:00 37.33 Radha [facility] Respiratory rate 2021-03-15 00:14:00 24 /min [facility] Body height 2021-03-15 00:14:00 160 cm Universi ty [facility] Body weight 2021-03-15 00:14:00 58.968 kg Universi ty [facility] BMI 2021-03-15 00:14:00 23.03 kg/m2 Universi ty [facility] Oxygen saturation in 2021-03-15 00:14:00 98 /min University of Arterial blood by [facility] Pulse oximetry Branch Systolic blood 2021-02-19 18:00:00 131 mm[Hg] Univer sity of [facility] Diastolic blood 2021-02-19 18:00:00 80 mm[Hg] Unive rsity of [facility] Heart rate 2021-02-19 18:00:00 83 /min Universi ty [facility] Respiratory rate 2021-02-19 18:00:00 18 /min [facility] Oxygen saturation in 2021-02-19 18:00:00 100 /min University of Arterial blood by [facility] Pulse oximetry Branch Body temperature 2021-02-19 15:47:00 37 Radha [facility] height 2021-02-19 15:47:00 160 cm Universi ty [facility] Body weight 2021-02-19 15:47:00 58.968 kg Universi ty [facility] BMI 2021-02-19 15:47:00 23.03 kg/m2 [facility] Procedures Procedure Date / Time Performing Clinician Source Performed SARS-COV-2 COVID-19 2022-02-19 15:21:12 Doctor Unassigned, Unive [facility] VACCINE 12 YRS+,0.3ML,IM [place] [facility] ([employer] [facility] [place]) URINE DRUG (IMMUNOASSAY) 2021-11-23 21:21:00 Nichelle Allison [facility] DRUG [facility] SCREEN W/O REFLEX CT HEAD WO CONTRAST 2021-11-23 20:58:00 Nichelle Allison [facility] POCT TEST 2021-11-23 20:46:00 Nichelle Allison [facility] URINALYSIS 2021-11-23 20:43:00 Nichelle Allison [facility] LIPASE 2021-11-23 20:27:00 [facility] TROPONIN I 2021-11-23 20:27:00 [facility] COMP. METABOLIC PANEL 2021-11-23 20:27:00 Nichelle Allison [facility] ([id number]) [facility] CBC WITH DIFF 2021-11-23 20:27:00 Nichelle Allison [facility] POCT GLUCOSE (AUTOMATED) 2021-11-23 20:15:00 Doctor Unassigned, [facility] SARS-COV-2 COVID-19 2021-05-24 14:23:12 Doctor Unassigned, [facility] VACCINE,0.3ML,IM [facility]PFIZ[facility] SARS-COV-2 COVID-19 2021-05-03 14:59:29 Doctor Unassigned, [facility] VACCINE,0.3ML,IM [facility] 2021-04-16 05:01:00 Doctor Unassigned, [facility] AGREEMENTS AND [place] [facility] AUTHORIZATIONS URINALYSIS 2021-03-17 03:09:00 Fabrice Chakraborty [facility] XR CHEST 1 VW 2021-03-17 01:45:07 Fabrice Chakraborty [facility] TROPONIN I 2021-03-17 01:35:00 Fabrice Chakraborty [facility] COMP. METABOLIC PANEL 2021-03-17 01:35:00 Fabrice Chakraborty [facility] ([id number]) [facility] CBC WITH DIFF 2021-03-17 01:35:00 Fabrice Chakraborty [facility] N-TERMINAL PRO-BNP 2021-03-17 01:35:00 Fabrice Chakraborty [facility] Medical [place] COVID-19 (ID NOW RAPID 2021-03-17 00:58:00 Brian Ray [facility] TESTING) Medical Branch CONSENT/REFUSAL FOR 2021-03-17 00:32:59 Doctor Unassjulee, [facility] DIAGNOSIS AND TREATMENT [place] [facility] COVID-19 (ID NOW RAPID 2021-02-19 17:04:00 Anali Patel [facility] TESTING) Medical Branch CT ABDOMEN PELVIS W 2021-02-19 16:41:18 Anali Patel [facility] CONTRAST Medical Branch LIPASE 2021-02-19 15:58:00 Eliana [facility] COMP. METABOLIC PANEL 2021-02-19 15:58:00 Anali Patel [facility] ([id number]) Medical Branch CBC WITH DIFF 2021-02-19 15:58:00 Anali Patel [facility] URINALYSIS 2021-02-19 15:58:00 [facility] NOTICE OF PRIVACY 2021-02-19 15:30:46 Doctor Unassjulee, [facility] PRACTICES [place] [facility] [place] CONSENT/REFUSAL FOR 2021-02-19 15:30:30 Doctor Joe, [facility] DIAGNOSIS AND TREATMENT [place] [facility] [place] Encounters Start End Encounter Admission Attending Care Care Encounter Source Date/Time Date/Time Type Type Clinicians Facility Department ID 2021-05-20 Emergency [facility] [id number] Univers 18:48:04 ity of [facility] 2021-05-20 Emergency [facility] [id number] Univers 12:43:40 ity of [facility] 2022-02-19 2022-02-19 Imm/Inj Vaccine, [place] [facility] ANJELICA FLETCHER [id number] Univers 10:20:00 10:30:00 Visit Shilpa Frederick [id number] ity of P[id number] [id number] [facility] 225 Branch 2022-02-19 2022-02-19 Outpatient R [facility] [id number] Univers 10:20:00 10:20:00 [id number] ity of [facility] 2022-02-19 2022-02-19 Outpatient R SHILPA FREDERICK [facility] [id number] Univers 10:20:00 10:20:00 ity of [facility] 2021-11-23 2021-11-23 Emergency X STEFANOAYSEMAURICE [facility] ERT [id number] Univers 15:07:00 17:03:00 FOLANA ity of [facility] 2021-11-23 2021-11-23 Emergency Sav Rondon [facility] [id number] Univers 15:07:00 17:03:00 Nichelle Allison [facility] [id number]. 10 ity of [place] 4.2.7.2.686 [facility] [phone] [facility] [address] 2021-11-21 2021-11-21 Outpatient R [facility] [id number] -[id number] Univers 09:40:00 09:40:00 [id number] ity of [facility] 2021-11-21 2021-11-21 Outpatient R [facility] [id number] Univers 09:40:00 09:40:00 ity of [facility] 2021-05-24 2021-05-24 Outpatient R [facility] [id number] -[id number] Univers 09:30:00 09:30:00 [id number] ity of [facility] 2021-05-24 2021-05-24 Outpatient R SHILPA FREDERICK [facility] [id number] Univers 09:30:00 09:30:00 ity of [facility] 2021-05-24 2021-05-24 Imm[facility]ine[facility] [place] [facility] 1.2.840.114 [id number] Univers 08:47:51 08:57:51 Visit Shilpa Frederick 350.1.13.10 [place] [facility] [id number] [facility] [address] 2021-05-03 2021-05-03 Outpatient R SHILPA FREDERICK [facility] [id number] Univers 09:40:00 09:59:35 ity of [facility] 2021-05-03 2021-05-03 Imm/Inj Vaccine, Chung Pierson [facility] Anjelica fletcher 1.2.840.114 [id number] Univers 09:17:43 09:59:35 Visit Shilpa Frederick 350.1.13.10 [place] [facility] [id number] [facility] [address] 2021-05-03 2021-05-03 Outpatient R [facility] [id number] -[id number] Univers 09:40:00 09:40:00 [id number] ity of [facility] 2021-04-16 2021-04-16 Orders Doctor EWELINA 1.2.840.114 [id number] Univers 00:00:00 00:00:00 Only Unassigned, HOSEA 350.1.13.10 ity of [place] [facility] 4.2.7.2.686 Javier as [id number] [facility] [address] 2021-03-17 2021-03-17 Telephone EWELINA Nava [id number] Univers 00:00:00 00:00:00 Aneatrice HOSEA 350.1.13.10 ity of [facility] 4.2.7.2.686 Javeir as [id number] [facility] [address] 2021-03-16 2021-03-16 Emergency Palmer [facility] 1.2.840.114 [id number] Univers 20:08:00 23:24:00 Shinta Julio Cesar 350.1.13.10 [place] [id number] [facility] [address] 2021-03-14 2021-03-14 Urgent Lydia Desouza [facility] 1.2.840.114 [id number] Univers 18:59:34 20:19:13 Care Unknown, Attending Health 350.1.13.10 ity of [place] 4.2.7.2.686 Javier as Prem?Blea [id number] Ct [address] [facility] 2021-03-14 2021-03-14 Outpatient R [facility] [id number] -[id number] Univers 19:00:00 19:00:00 [id number] [facility] 2021-03-14 2021-03-14 Outpatient R UNKNOWN, [facility] [id number] Univers 19:00:00 19:00:00 ATTENDING [facility] 2021-02-19 2021-02-19 [facility] [id number] Univers 10:49:00 14:48:00 Anali Harrell 350.1.13.10 [place] [id number] [address] 2019-03-09 2019-03-09 [facility] 1.2.840.114 [id number] 00:00:00 00:00:00 Yehuda Harrell 350.1.13.10 [place] 4.2.7.2.686 Professio [id number] [address] 2019-03-09 2019-03-09 [facility] 1.2.840.114 [id number] Univers 00:00:00 00:00:00 Yehuda Harrell 350.1.13.10 ity [facility] [place] [id number] [address] Results Test Description Test Time Test Comments Results Result Comments Source TROPONIN I 2021-11-23 21:06:40 Test Item Value Reference Range Interpretation Comme nts TROPONIN I (test code = 0.005 ng/mL See_Comment [Au tomated message] The 4789137797) system which ge nerated this result tra [...] biotin. Lab Interpretation Normal (test code = 19294-8) [facility]. METABOLIC PANEL (08887)2021-11-23 20:55:42 Test Item Value Reference Range Interpretation Comments NA (test code = 137 mmol/L 135-145 9794182272) K (test code = 4.3 mmol/L 3.5-5.0 7926009421) CL (test code = 104 mmol/L 98-108 1756173554) CO2 TOTAL (test code = 22 mmol/L 23-31 L 7188993407) AGAP (test code = 2-16 7856138315) BUN (test code = 15 mg/dL 7-23 9209931580) GLUCOSE (test code = 114 mg/dL 70-110 H 9030788492) CREATININE (test code = 0.68 mg/dL 0.50-1.04 5044505888) TOTAL BILI (test code = 0.5 mg/dL 0.1-1.4 9433459030) CALCIUM (test code = 9.1 mg/dL 8.6-10.6 6573990977) T PROTEIN (test code = 7.3 g/dL 6.3-8.2 4719889491) ALBUMIN (test code = 4.4 g/dL 3.5-5.0 5835564585) ALK PHOS (test code = 243 U/L 34-122 H 5880303300) ALTv (test code = 24 U/L 5-35 1742-6) AST(SGOT) (test code = 30 U/L 13-40 3128608536) eGFR (test code = mL/min/1.73m2 3404228723) LYNDSAY (test code = LYNDSAY) Association of [...] tests). Lab Interpretation Abnormal (test code = 65929-9) [facility] 20:55:22 Test Item Value Reference Range Interpretation Comments LIPASE (test code = 7034909262) 96 U/L 0-220 Lab Interpretation (test code = Normal 47628-7) [facility] [id number] 20:46:00 Test Item Value Reference Range Interpretation Comments POCT PREG (test code = 1605) negative On board controls acceptable with present C Line (test code = 3574) POCT PREG LOT # (test code = 3575) [id number] POCT PREG TEST DATE (test 04/18/2023 code = 3576) Lab Interpretation (test code = Normal 28651-0) [facility] WITH [id number] 20:40:38 Test Item Value Reference Range Interpretation Comments WBC (test code = See_Comment [Automated 7167-2) message] The sy stem which generated this [...] (test code = 53.7 fL 39.0-49.9 H 54086-6) RDW-CV (test code = 17.2 % 12.0-15.5 H 788-0) PLT (test code = See_Comment H [Automated 777-3) message] The sy stem which generated this result transmitted reference range : 166 - 358 10*3/ ?L. The reference r zoe was not used to interpret this result as normal/abnormal . MPV (test code = 8.5 fL 9.5-12.9 L 60267-9) NRBC/100 WBC (test See_Comment [Automat ed code = 0694549169) message] The system which generated this result transmitted reference range : 0.0 - 10.0 /100 WBCs. The refer ence range was not u sed to interpret th is result as normal/abnormal . NRBC x10^3 (test code <0.01 See_Comment [Auto mated = 6138705344) message] The s ystem which generated this result transmitted reference range : 10*3/?L. The reference range was not used to interpret this result as normal/abnormal . GRAN MAT (NEUT) % 53.7 % (test code = 770-8) IMM GRAN % (test code 0.90 % = 0402746683) LYMPH % (test code = 32.6 % 736-9) MONO % (test code = 10.1 % 5905-5) EOS % (test code = 1.5 % 713-8) BASO % (test code = 1.2 % 706-2) GRAN MAT x10^3(ANC) 4.98 10*3/uL 1.88-7.09 (test code = 5791886266) IMM GRAN x10^3 (test 0.08 10*3/uL 0.00-0.06 H code = 5832080544) LYMPH x10^3 (test code 3.02 10*3/uL 1.32-3.29 = 731-0) MONO x10^3 (test code 0.94 10*3/uL 0.33-0.92 H = 742-7) EOS x10^3 (test code = 0.14 10*3/uL 0.03-0.39 711-2) BASO x10^3 (test code 0.11 10*3/uL 0.01-0.07 H = 704-7) Lab Interpretation Abnormal (test code = 13784-2) [facility]2021-11-23 20:17:33 Test Item Value Reference Range Interpretation Comments POCT GLU (test code = 111 mg/dL 70-110 H Notifi ed Provider 4871758720) Lab Interpretation (test Abnormal code = 95820-2) [facility]21[facility]29 03:22:48 Test Item Value Reference Range Interpretation Comments APPEARANCE (test code = Hazy Clear A 7585467803) COLOR (test code = Yellow Yellow 7623069957) PH (test code = 4.8-8.0 1671296414) SP GRAVITY (test code = 1.003-1.030 3197424314) GLU U QUAL (test code = Normal Normal 5852386131) BLOOD (test code = Negative Negative Interfere nce from 9743925336) ascorbic acid m ay cause false neg ative results. KETONES (test code = 5 mg/dL Negative A 7437055748) PROTEIN (test code = Negative Negative 2887-8) UROBILIN (test code = 4.0 mg/dL Normal A 0473006688) BILIRUBIN (test code = Negative Negative 1241820325) NITRITE (test code = Negative Negative 3419161708) LEUK GRUPO (test code = Negative Negative 5218819010) RBC/HPF (test code = See_Comment [Autom ated message] 0366151215) The system [employer] generated this result transmitted ref erence range: 0 - 3 HP F. The reference range was not used to int erpret this result as normal/abnormal . WBC/HPF (test code = <1 See_Comment [Autom ated message] 7461125780) The system [employer] generated this result transmitted ref erence range: 0 - 5 HP F. The reference range was not used to int erpret this result as normal/abnormal . BACTERIA (test code = Few Negative A 7087120640) SQ EPITH (test code = HPF 4794351313) Lab Interpretation Abnormal (test code = 91455-8) [facility]21[facility] 03:22:48 Test Item Value Reference Range Interpretation Comments APPEARANCE (test code = Hazy Clear A 7386265934) COLOR (test code = Yellow Yellow 5794841278) PH (test code = 4.8-8.0 1723892556) SP GRAVITY (test code = 1.003-1.030 3251701370) GLU U QUAL (test code = Normal Normal 5937670684) BLOOD (test code = Negative Negative 5203416332) KETONES (test code = 5 mg/dL Negative A 4612564877) PROTEIN (test code = Negative Negative 2887-8) UROBILIN (test code = 4.0 mg/dL Normal A 3968303229) BILIRUBIN (test code = Negative Negative 3209429642) NITRITE (test code = Negative Negative 2303382117) LEUK GRUPO (test code = Negative Negative 7012903929) RBC/HPF (test code = See_Comment [Autom ated message] 9138278367) The system [employer] generated this result transmit sherice reference range : 0 - 3 HPF. The refe rence range was not u sed to interpret th is result as normal/abnormal . WBC/HPF (test code = <1 See_Comment [Autom ated message] 2591046126) The system [employer] generated this result transmit sherice reference range : 0 - 5 HPF. The refe rence range was not u sed to interpret th is result as normal/abnormal . BACTERIA (test code = Few Negative A 2224868406) SQ EPITH (test code = HPF 2046783314) Lab Interpretation (test Abnormal code = 28716-8) [facility] [id number] 02:45:00 Test Item Value Reference Interpretation Comments Range TROPONIN I (test 0.002 ng/mL See_Comment [Automated code = 2753492414) message] The system which generated this result [...] biotin. Lab Interpretation Normal (test code = 36799-0) [facility] [id number] 02:45:00 Test Item Value Reference Range Interpretation Comments TROPONIN I (test code = 0.002 ng/mL See_Comment [Au tomated 4571736753) message] The sy stem which generated this result transmitted reference range : <=0.034. The reference range was not used to interpret this result as normal/abnormal . LYNDSAY (test code = LYNDSAY) Lab Interpretation Normal (test code = 16370-5) [facility]-TERMINAL [id number] 02:41:57 Test Item Value Reference Range Interpretation Comments NT-proBNP (test code 169 pg/mL See_Comment H [Autom ated = 2503338742) message] The system which generated this result transmitted reference range : <=125. The reference range was not used to interpret this result as normal/abnormal . LYNDSAY (test code = LYNDSAY) Biotin has been reported to cause a negative bias, interpret results relative to patient's use of biotin. Lab Interpretation Abnormal (test code = 52364-8) [facility]-TERMINAL [id number] 02:41:57 Test Item Value Reference Range Interpretation Comments NT-proBNP (test code = 169 pg/mL See_Comment H [Aut omated message] 7359648895) The system whic h generated this result transmit sherice reference range : <=125. The refe rence range was not u sed to interpret th is result as normal/abnormal . LYNDSAY (test code = LYNDSAY) Lab Interpretation (test Abnormal code = 47119-6) [facility]. METABOLIC PANEL (52597)2021-03-17 02:09:13 Test Item Value Reference Range Interpretation Comments NA (test code = 137 mmol/L 135-145 0194432912) K (test code = 4.2 mmol/L 3.5-5.0 8568477590) CL (test code = 102 mmol/L 98-108 2160633979) CO2 TOTAL (test code = 25 mmol/L 23-31 8864908569) AGAP (test code = 2-16 9537545080) BUN (test code = 18 mg/dL 7-23 4432323705) GLUCOSE (test code = 144 mg/dL 70-110 H 7886971886) CREATININE (test code = 0.77 mg/dL 0.50-1.04 2546436736) TOTAL BILI (test code = 0.4 mg/dL 0.1-1.0 8019746656) CALCIUM (test code = 8.9 mg/dL 8.6-10.6 0104145304) T PROTEIN (test code = 6.8 g/dL 6.3-8.2 4280854263) ALBUMIN (test code = 3.9 g/dL 3.5-5.0 3113887692) ALK PHOS (test code = 84 U/L 34-122 7179911922) ALTv (test code = 13 U/L 5-35 1742-6) AST(SGOT) (test code = 17 U/L 13-40 4393013689) eGFR (test code = mL/min/1.73m2 5656531065) LYNDSAY (test code = LYNDSAY) Association of [...] tests). Lab Interpretation Abnormal (test code = 88438-5) [facility]. METABOLIC PANEL (10618)2021-03-17 02:09:13 Test Item Value Reference Range Interpretation Comments NA (test code = 3737001568) 137 mmol/L 135-145 K (test code = 5326237887) 4.2 mmol/L 3.5-5.0 CL (test code = 4747236597) 102 mmol/L 98-108 CO2 TOTAL (test code = 8366747039) 25 mmol/L 23-31 AGAP (test code = 0836370041) 2-16 BUN (test code = 5913199786) 18 mg/dL 7-23 GLUCOSE (test code = 8904926676) 144 mg/dL 70-110 H CREATININE (test code = 0.77 mg/dL 0.50-1.04 5010854923) TOTAL BILI (test code = 0.4 mg/dL 0.1-1.5 2803699118) CALCIUM (test code = 5641774990) 8.9 mg/dL 8.6-10.6 T PROTEIN (test code = 5620094400) 6.8 g/dL 6.3-8.2 ALBUMIN (test code = 6958834784) 3.9 g/dL 3.5-5.0 ALK PHOS (test code = 0380109202) 84 U/L 34-122 ALTv (test code = 1742-6) 13 U/L 5-35 AST(SGOT) (test code = 2829890909) 17 U/L 13-40 eGFR (test code = 8215339890) mL/min/1.73m2 LYNDSAY (test code = LYNDSAY) Lab Interpretation (test code = Abnormal 46849-8) [facility] WITH [id number] 01:56:33 Test Item Value Reference Range Interpretation [...] (test code = 55.5 fL 39.0-49.9 H 20299-2) RDW-CV (test code = 18.9 % 12.0-15.5 H 788-0) PLT (test code = See_Comment H [Automated 777-3) message] The sy stem which generated this result transmitted reference range : 166 - 358 10*3/ ?L. The reference r zoe was not used to interpret this result as normal/abnormal . MPV (test code = 8.2 fL 9.5-12.9 L 49319-1) NRBC/100 WBC (test See_Comment [Automat ed code = 2141961522) message] The system which generated this result transmitted reference range : 0.0 - 10.0 /100 WBCs. The refer ence range was not u sed to interpret th is result as normal/abnormal . NRBC x10^3 (test code <0.01 See_Comment [Auto mated = 6969660383) message] The s ystem which generated this result transmitted reference range : 10*3/?L. The reference range was not used to interpret this result as normal/abnormal . GRAN MAT (NEUT) % 61.7 % (test code = 770-8) IMM GRAN % (test code 0.80 % = 7600844276) LYMPH % (test code = 28.5 % 736-9) MONO % (test code = 6.3 % 5905-5) EOS % (test code = 1.8 % 713-8) BASO % (test code = 0.9 % 706-2) GRAN MAT x10^3(ANC) 7.31 10*3/uL 1.88-7.09 H (test code = 4070908209) IMM GRAN x10^3 (test 0.09 10*3/uL 0.00-0.06 H code = 9242198009) LYMPH x10^3 (test code 3.38 10*3/uL 1.32-3.29 H = 731-0) MONO x10^3 (test code 0.75 10*3/uL 0.33-0.92 = 742-7) EOS x10^3 (test code = 0.21 10*3/uL 0.03-0.39 711-2) BASO x10^3 (test code 0.11 10*3/uL 0.01-0.07 H = 704-7) Lab Interpretation Abnormal (test code = 78196-9) [facility] WITH [id number] 01:56:33 Test Item Value Reference Range Interpretation Comments WBC (test code = See_Comment H [Automated 3190-2) message] The sy stem which generated this [...] (test code = 55.5 fL 39.0-49.9 H 60449-0) RDW-CV (test code = 18.9 % 12.0-15.5 H 788-0) PLT (test code = See_Comment H [Automated 777-3) message] The sy stem which generated this result transmitted reference range : 166 - 358 10*3/ ?L. The reference r zoe was not used to interpret this result as normal/abnormal . MPV (test code = 8.2 fL 9.5-12.9 L 41007-8) NRBC/100 WBC (test See_Comment [Automat ed code = 2527709336) message] The system which generated this result transmitted reference range : 0.0 - 10.0 /100 WBCs. The refer ence range was not u sed to interpret th is result as normal/abnormal . NRBC x10^3 (test code <0.01 See_Comment [Auto mated = 2338889486) message] The s ystem which generated this result transmitted reference range : 10*3/?L. The reference range was not used to interpret this result as normal/abnormal . GRAN MAT (NEUT) % 61.7 % (test code = 770-8) IMM GRAN % (test code 0.80 % = 5830043316) LYMPH % (test code = 28.5 % 736-9) MONO % (test code = 6.3 % 5905-5) EOS % (test code = 1.8 % 713-8) BASO % (test code = 0.9 % 706-2) GRAN MAT x10^3(ANC) 7.31 10*3/uL 1.88-7.09 H (test code = 5101063626) IMM GRAN x10^3 (test 0.09 10*3/uL 0.00-0.06 H code = 1264226223) LYMPH x10^3 (test code 3.38 10*3/uL 1.32-3.29 H = 731-0) MONO x10^3 (test code 0.75 10*3/uL 0.33-0.92 = 742-7) EOS x10^3 (test code = 0.21 10*3/uL 0.03-0.39 711-2) BASO x10^3 (test code 0.11 10*3/uL 0.01-0.07 H = 704-7) Lab Interpretation Abnormal (test code = 78552-3) [facility]-19 (ID NOW RAPID TESTING)2021-03-17 01:38:12 Test Item Value Reference Range Interpretation Comments SARS-CoV-2 Rapid ID NOW Not Detected Not Detected (test code = 80795-6) LYNDSAY (test code = LYNDSAY) ID NOW COVID-19 Assay is an isothermal nucleic acid amplification test intended for the qualitative detection of nucleic acid from SARS-CoV-2 viral RNA in nasopharyngeal ([employer]LE DATABASE ADMINISTRATOR) specimens. It is used under Emergency Use [...] indicated. Lab Interpretation Normal (test code = 66204-6) [facility]-19 (ID NOW RAPID TESTING)2021-03-17 01:38:12 Test Item Value Reference Range Interpretation Comments SARS-CoV-2 Rapid ID NOW (test Not Detected Not Detected code = 79424-8) LYNDSAY (test code = LYNDSAY) Lab Interpretation (test code = Normal 68118-9) [facility] NOW RAPID TESTING)2021-02-19 17:42:45 Test Item Value Reference Range Interpretation Comments SARS-CoV-2 Rapid ID NOW Not Detected Not Detected (test code = 29305-6) LYNDSAY (test code = LYNDSAY) ID NOW COVID-19 Assay is an isothermal nucleic acid amplification test intended for the qualitative detection of nucleic acid from SARS-CoV-2 viral RNA in nasopharyngeal (ORACLE DATABASE ADMINISTRATOR) specimens. It is used under Emergency Use [...] indicated. Lab Interpretation Normal (test code = 98091-6) [facility] A[facility]OM[facility] PELVIS W [id number] 17:24:55Thickening of the gastric antrum and duodenal [...] nodularity of the left adrenal gland.RL: 8722 [facility] CenterUrinalysis2021-08-03 17:03:40 Test Item Value Reference Range Interpretation Comments APPEARANCE (test code = Hazy Clear A 3016599392) COLOR (test code = Mabel Yellow A 1302323856) PH (test code = 4.8-8.0 5477002126) SP GRAVITY (test code = 1.003-1.030 H 4077298354) GLU U QUAL (test code = Normal Normal 6893281654) BLOOD (test code = Negative Negative 8706233521) KETONES (test code = 5 mg/dL Negative A 7965611532) PROTEIN (test code = 30 mg/dL Negative A 2887-8) UROBILIN (test code = 4.0 mg/dL Normal A 4475457065) BILIRUBIN (test code = 4 mg/dL Negative A 6365272211) NITRITE (test code = Negative Negative 9264652373) LEUK GRUPO (test code = Negative Negative 5134062448) RBC/HPF (test code = See_Comment H [Autom ated message] 5439315077) The system [employer] generated this result transmit sherice reference range : 0 - 3 HPF. The refe rence range was not u sed to interpret th is result as normal/abnormal . WBC/HPF (test code = See_Comment H [Autom ated message] 9336815586) The system [employer] generated this result transmit sherice reference range : 0 - 5 HPF. The refe rence range was not u sed to interpret th is result as normal/abnormal . BACTERIA (test code = Few Negative A 6670698061) MUCOUS (test code = Moderate Negative LPF A 1639959746) SQ EPITH (test code = HPF 0397514930) CA OXALATE (test code = See_Comment H [Au tomated message] 5544933396) The system [employer] generated this result transmit sherice reference range : <=1 HPF. The refere nce range was not u sed to interpret th is result as normal/abnormal . Ictotest (test code = Negative 6489782793) Lab Interpretation (test Abnormal code = 18852-2) [facility] Center[facility] Metabolic [id number] 16:34:55 Test Item Value Reference Range Interpretation Comments NA (test code = 139 mmol/L 135-145 6075976030) K (test code = 4.3 mmol/L 3.5-5.0 3959287864) CL (test code = 105 mmol/L 98-108 7799172136) CO2 TOTAL (test code 26 mmol/L 23-31 = 7437636277) AGAP (test code = 2-16 9442314591) BUN (test code = 11 mg/dL 7-23 9684592567) GLUCOSE (test code = 95 mg/dL 70-110 4631979955) CREATININE (test code 0.70 mg/dL 0.50-1.04 = 1556635884) TOTAL BILI (test code 0.6 mg/dL 0.1-1.1 = 4481616769) CALCIUM (test code = 8.9 mg/dL 8.6-10.6 0524363216) T PROTEIN (test code 7.7 g/dL 6.3-8.2 = 0024410616) ALBUMIN (test code = 4.1 g/dL 3.5-5.0 0419708388) ALK PHOS (test code = 79 U/L 34-122 9722761407) ALTv (test code = 10 U/L 5-35 1742-6) AST(SGOT) (test code 22 U/L 13-40 = 0567504588) eGFR (test code = mL/min/1.73m2 3376889517) LYNDSAY (test code = LYNDSAY) Association of [...] or urine or abnormalities in imaging tests). [facility] Center[facility], [id number] 16:34:14 Test Item Value Reference Range Interpretation Comments LIPASE (test code = 1927882937) 45 U/L 0-220 Lab Interpretation (test code = Normal 15459-3) [facility] with [id number] 16:21:12 Test Item Value Reference Range Interpretation Comments WBC (test code = See_Comment [Automated 7009-2) message] The sy stem which generated this result transmitted reference range : 4.30 - 11.10 10*3/?L. The reference range was not used to interpret this result as normal/abnormal . RBC (test code = See_Comment [Automated 709-3) message] The sy stem which generated this [...] (test code = 54.4 fL 39.0-49.9 H 80383-4) RDW-CV (test code = 18.3 % 12.0-15.5 H 788-0) PLT (test code = See_Comment H [Automated 777-3) message] The sy stem which generated this result transmitted reference range : 166 - 358 10*3/ ?L. The reference r zoe was not used to interpret this result as normal/abnormal . MPV (test code = 8.5 fL 9.5-12.9 L 57535-3) NRBC/100 WBC (test See_Comment [Automat ed code = 3507350089) message] The system which generated this result transmitted reference range : 0.0 - 10.0 /100 WBCs. The refer ence range was not u sed to interpret th is result as normal/abnormal . NRBC x10^3 (test code <0.01 See_Comment [Auto mated = 5783424164) message] The s ystem which generated this result transmitted reference range : 10*3/?L. The reference range was not used to interpret this result as normal/abnormal . GRAN MAT (NEUT) % 78.3 % (test code = 770-8) IMM GRAN % (test code 0.40 % = 6520404967) LYMPH % (test code = 15.4 % 736-9) MONO % (test code = 4.8 % 5905-5) EOS % (test code = 0.1 % 713-8) BASO % (test code = 1.0 % 706-2) GRAN MAT x10^3(ANC) 7.15 10*3/uL 1.88-7.09 H (test code = 9532527809) IMM GRAN x10^3 (test 0.04 10*3/uL 0.00-0.06 code = 2672130124) LYMPH x10^3 (test code 1.41 10*3/uL 1.32-3.29 = 731-0) MONO x10^3 (test code 0.44 10*3/uL 0.33-0.92 = 742-7) EOS x10^3 (test code = <0.03 0.03-0.39 L 711-2) BASO x10^3 (test code 0.09 10*3/uL 0.01-0.07 H = 704-7) Lab Interpretation Abnormal (test code = 86409-2) [facility]"
[2022-03-09 11:59] LABS: Urine Blood 1+ (Negative); Urine Glucose Negative (Negative); Urine Protein 1+ (Negative); Urine Specific Gravity 1.025 (1.005-1.030)
[2022-03-09 12:04] LABS: ALT/SGPT 17 U/L (12-78); AST/SGOT 9 U/L (15-37); Albumin 3.3 g/dL (3.4-5.0); Alkaline Phosphatase 83 U/L (45-117); BUN Blood Urea Nitrogen 11 mg/dL (7-18); Bicarbonate 26 mmol/L (21-32); Bilirubin Total 0.3 mg/dL (0.2-1.0); Glomerular Filtration Rate 80 ml/min (=/>90); Glucose Level 124 mg/dL (74-106); Magnesium 2.2 mg/dL (1.8-2.4); NT PRO-BNP 1117 pg/mL (<125); Potassium 3.7 mmol/L (3.5-5.1); Protein, Total 7.1 g/dL (6.4-8.2); Sodium Level 139 mmol/L (136-145); Troponin High Sensitivity 14.3 pg/mL (<58.9)
[2022-03-09 12:06] LABS: Bilirubin Direct < 0.1 mg/dL (0-0.2)
[2022-03-09 12:07] LABS: Lymphocytes % 28.1 % (15.3-44.8); MCV 84.4 fL (80-100); MPV 6.2 fL (7.6-11.3); RBC Red Blood Cell Count 4.39 M/uL (3.86-4.86)
[2022-03-09] MEDS ORDERED: LEVETIRACETAM 500 MG/5 ML VIAL IV ONE (12:10)
[2022-03-09] MEDS ORDERED: FAMOTIDINE 20 MG/2 ML VIAL IV ONE (12:11)
[2022-03-09] MEDS ORDERED: ONDANSETRON 4 MG/2 ML VIAL ONE ×2 (12:11→14:00)
[2022-03-09] MEDS ORDERED: MORPHINE 4 MG/ML SYR ONE ×2 (12:11→14:00)
[2022-03-09] MEDS ORDERED: NA CHLORIDE 0.9% 100 ML ONE (12:12)
[2022-03-09 12:17] LABS: Urine Bacteria 20-50 /HPF (<20); Urine RBC <5 /HPF (None Seen)
[2022-03-09 12:28] LABS: Barbiturates NEGATIVE (NEGATIVE); Benzodiazepines POSITIVE (NEGATIVE); Cocaine POSITIVE (NEGATIVE); METHAMPHETAM NEGATIVE (NEGATIVE); Methadone NEGATIVE (NEGATIVE); Opiates NEGATIVE (NEGATIVE); Phencyclidine NEGATIVE (NEGATIVE); THC Cannibis NEGATIVE (NEGATIVE)
[2022-03-09 12:38] LABS: Protime INR 0.98
[2022-03-09] MEDS ORDERED: ASPIRIN 81 MG CHEWABLE TABLET ONE (12:56)
--- NOTE | 2022-03-09 13:04 | RAD REPORT ---
EXAM DESCRIPTION: RAD - Chest Single View - 03/09/2022 11:54 am CLINICAL HISTORY: CHEST PAIN COMPARISON: Portable 03/04/2022 TECHNIQUE: AP portable chest image was obtained 03/09/2022 11:54 am . FINDINGS: No focal mass or consolidation. Interstitial pattern is not clearly different from compari son. Mild edema or infiltrate in the lung bases could be masked by the chronic lung pattern. Heart and vasculature are normal. No measurable pleural effusion and no pneumothorax. No acute bony abnormality seen. No acute aortic findings suspected. IMPRESSION: Chronic interstitial pattern not clearly different from comparison. Severity of chronic interstitial disease could mask edema or infiltrate.
--- NOTE | 2022-03-09 15:11 | RAD REPORT ---
EXAM DESCRIPTION: CT - Angio Aorta For Dissection - 03/09/2022 2:55 pm CLINICAL HISTORY: chest pain, abdominal pain COMPARISON: None. TECHNIQUE: Dynamically enhanced 3 mm thick images of the chest, abdomen, and upper pelvis were obtai keisha during administration of approximately 150mL Isovue 370 IV contrast. Sagittal and coronal reconst ruction images were generated using MIP and reviewed. Exam utilizes a protocol to evaluate entire cou rse of the aorta. All CT scans are performed using dose optimization technique as appropriate and may include automated exposure control or mA/KV adjustment according to patient size. FINDINGS: Aorta is normal in diameter with no dissection or other acute aortic findings. Reconstruct ion images show no significant findings. Aortoiliac atherosclerotic calcifications are present with n o significant luminal narrowing. Pulmonary arteries are normal as well. No cardiomegaly, pericardial thickening or pericardial effusio n. No acute infiltrate in the lung parenchyma. Patient has numerous noncalcified pulmonary nodules large st of which is just under 6 mm (image 83). There is a calcified granuloma in the left upper lung fiel d. Many of these are new the remote 2013 study. No pleural thickening, pleural effusion or pneumothor ax. No abnormal mediastinal or hilar mass or lymphadenopathy seen. No chest wall mass or abnormal axillar y lymphadenopathy. Celiac, SMA and renal arteries show no suspicious findings. Solid abdominal viscera and bowel show no significant findings. Gallbladder is absent. No abnormal biliary tree dilatation. No mass or abnorm al lymphadenopathy. No free air, free fluid or inflammatory stranding. No urinary bladder abnormality . No acute bone finding. Prominent degenerative change present at the L4-5 disc level. IMPRESSION: Negative CT scan the aortoiliac vasculature for acute finding. No acute or emergent findings on chest, abdomen and upper pelvis examination. Patient has numerous noncalcified pulmonary nodules under 6 mm in size with a single calcified granul david. Many of these are new from the remote 2014 study. The pulmonary nodules are nonspecific and very likely to be noncalcified granulomas. No malignant his tory as detailed. Fleischner 2017 criteria for multiple pulmonary nodules under 6 mm has no recommended follow-up for a low risk patient. High risk patient can be re-evaluated with CT imaging in 12 months.
[2022-03-09] MEDS ORDERED: PROMETHAZINE INJ 25 MG/ML AMP ONE (16:16)
[2022-03-09] MEDS ORDERED: KETOROLAC 30 MG/ML INJ ONE (16:16)
[2022-03-09] MEDS ORDERED: NA CHLORIDE 0.9% 50 ML ONE (16:17)
--- NOTE | 2022-03-09 17:36 | ER ---
Nurse's Notes [facility] Name: Heather Coon Age: 52 yrs Sex: Female : 1970 Arrival Date: 03/09/2022 Time: 11:07 Bed 15 Private MD: Diagnosis: Chest pain, unspecified;Cocaine abuse;Other seizures Presentation: 03/09 11:08 Chief complaint: Patient states: is having chest pain and had two seizures on the way iw to the ER , also is dry heaving. Coronavirus screen: At this time, the client does not indicate any symptoms associated with coronavirus-19. Ebola Screen: Patient negative for fever greater than or equal to 101.5 degrees Fahrenheit, and additional compatible Ebola Virus Disease symptoms Patient denies exposure to infectious person. Patient denies travel to an Ebola-affected area in the 21 days before illness onset. No symptoms or risks identified at this time. Risk Assessment: Do you want to hurt yourself or someone else? Patient reports no desire to harm self or others. Onset of symptoms. 11:08 Method Of Arrival: Wheelchair iw 11:08 Acuity: NADER 3 iw 17:48 Initial Sepsis Screen: Does the patient meet any 2 criteria? No. Patient's initial bm7 sepsis screen is negative. Does the patient have a suspected source of infection? No. Patient's initial sepsis screen is negative. 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 - Social history:: Smoking status: Patient denies any tobacco usage or history of. Screenin:51 Abuse screen: Denies threats or abuse. Nutritional screening: No deficits noted. bm7 Tuberculosis screening: No symptoms or risk factors identified. Fall Risk None identified. Assessment: 11:38 Reassessment: pt states she has not had her keppra in a week, could not afford it , iw also c/o headache. 12:51 General: Appears in no apparent distress. uncomfortable, well developed, Behavior is bm7 cooperative, anxious. Pain: Complains of pain in chest Pain does not radiate. Pain currently is 5 out of 10 on a pain scale. Quality of pain is described as sharp, Pain began gradually. Neuro: No deficits noted. Cardiovascular: Reports chest pain, Denies shortness of breath. Respiratory: No deficits noted. GI: No deficits noted. No signs and/or symptoms were reported involving the gastrointestinal system. : No deficits noted. No signs and/or symptoms were reported regarding the genitourinary system. EENT: No deficits noted. No signs and/or symptoms were reported regarding the EENT system. Derm: No deficits noted. No signs and/or symptoms reported regarding the dermatologic system. Musculoskeletal: No deficits noted. No signs and/or symptoms reported regarding the musculoskeletal system. 13:37 Reassessment: Patient and/or family updated on plan of care and expected duration. Pain bm7 level reassessed. Patient is alert, oriented x 3, equal unlabored respirations, skin warm/dry/pink. Patient states feeling better. Patient states symptoms have improved. 15:51 Reassessment: Patient and/or family updated on plan of care and expected duration. Pain bm7 level reassessed. Patient is alert, oriented x 3, equal unlabored respirations, skin warm/dry/pink. 16:13 Reassessment: Patient and/or family updated on plan of care and expected duration. Pain bm7 level reassessed. Patient is alert, oriented x 3, equal unlabored respirations, skin warm/dry/pink. 17:10 Reassessment: Patient and/or family updated on plan of care and expected duration. Pain bm7 level reassessed. Patient is alert, oriented x 3, equal unlabored respirations, skin warm/dry/pink. 17:21 Reassessment: Patient and/or family updated on plan of care and expected duration. Pain bm7 level reassessed. Patient is alert, oriented x 3, equal unlabored respirations, skin warm/dry/pink. Patient states symptoms have improved. Vital Signs: 11:32 BP 163 / 96; Pulse 108; Resp 18 S; Pulse Ox 98% on R/A; iw 12:16 BP 163 / 99; Pulse 78; Resp 16; Pulse Ox 100% on R/A; Pain 3/10; bm7 12:44 BP 140 / 93; Pulse 96; Resp 17; Pulse Ox 95% ; jl7 13:57 BP 130 / 71; Pulse 66; Resp 18; Pulse Ox 100% on R/A; Pain 5/10; bm7 14:50 BP 116 / 71; Pulse 95; Resp 18; Temp 98.2; Pulse Ox 95% on R/A; jl7 15:51 BP 123 / 79; Pulse 83; Resp 16; Pulse Ox 100% on R/A; Pain 2/10; bm7 16:13 BP 114 / 80; Pulse 76; Resp 16; Pulse Ox 99% on R/A; Pain 5/10; bm7 17:10 BP 116 / 66; Pulse 86; Resp 16; Pulse Ox 99% on R/A; Pain 2/10; bm7 17:21 BP 133 / 79; Pulse 90; Resp 16; Pulse Ox 100% on R/A; Pain 2/10; bm7 ED Course: 11:07 Patient arrived in ED. iw 11:09 Triage completed. iw 11:12 Derrick Castillo PA is PHCP. cp 11:12 Heather Ricardo MD is Attending Physician. cp 11:30 Lorena Vargas, BETH is Primary Nurse. iw 11:31 Arm band placed on. iw 11:32 Inserted saline lock: 22 gauge in right forearm, using aseptic technique. Blood iw collected. 11:48 Radha Donato, RN is Primary Nurse. bm7 11:52 Assisted to bathroom. bm7 11:56 XRAY Chest (1 view) In Process Unspecified. EDMS 12:51 Patient has correct armband on for positive identification. Client placed on continuous bm7 cardiac and pulse oximetry monitoring. NIBP monitoring applied. compound finisher on. Warm blanket given. 12:51 Initial lab(s) drawn, by me, sent to lab. Patient maintains SpO2 saturation greater bm7 than 95% on room air. 14:57 CT Aorta for Dissection In Process Unspecified. EDMS 14:[address] via stretcher. bm7 17:21 No apparent distress. Resting quietly. Awaiting ED provider evaluation. bm7 17:21 COVID swab sent to lab. bm7 17:36 Assisted to bathroom. bm7 17:46 No provider procedures requiring assistance completed. IV discontinued, intact, bm7 bleeding controlled, No redness/swelling at site. Pressure dressing applied. Administered Medications: 12:15 Drug: Keppra (levETIRAcetam) 1000 mg Route: IV; Rate: calculated rate; Site: right bm7 forearm; 13:18 Follow up: IV Status: Completed infusion; IV Intake: 100ml bm7 12:16 Drug: morphine 4 mg Route: IVP; Infused Over: 4 mins; Site: right wrist; bm7 13:19 Follow up: Response: Pain is decreased bm7 12:16 Drug: Zofran (Ondansetron) 4 mg Route: IVP; Site: right wrist; bm7 13:18 Follow up: Response: Nausea is decreased bm7 12:16 Drug: Pepcid (famotidine) 20 mg Route: IVP; Site: right wrist; bm7 13:18 Follow up: Response: No adverse reaction bm7 12:51 Drug: Aspirin Chewable Tablet 324 mg Route: PO; bm7 13:18 Follow up: Response: No adverse reaction bm7 13:56 Drug: morphine 4 mg Route: IVP; Infused Over: 4 mins; Site: right antecubital; bm7 15:50 Follow up: Response: Pain is decreased bm7 13:56 Drug: Zofran (Ondansetron) 4 mg Route: IVP; Site: right antecubital; bm7 15:50 Follow up: Response: Nausea is decreased bm7 16:13 Drug: Phenergan (promethazine) 25 mg Route: IVP; Site: right antecubital; bm7 16:48 Follow up: Response: Nausea is decreased bm7 16:13 Drug: Ketorolac 15 mg Route: IVP; Site: right antecubital; bm7 16:48 Follow up: Response: Pain is decreased bm7 Medication: 12:51 VIS not applicable for this client. bm7 Intake: 13:18 IV: 100ml; Total: 100ml. bm7 Outcome: 17:35 Discharge ordered by . cp 17:46 Discharged to home via wheelchair. bm7 17:46 Condition: stable 17:46 Discharge instructions given to patient, Instructed on discharge instructions, follow up and referral plans. medication usage, Demonstrated understanding of instructions, follow-up care, medications. 17:48 Patient left the ED. bm7 Signatures: Dispatcher [employer] EDLorena Bustamante, RN RN iw Derrick Castillo PA PA cp Leal, Jahala RN RN jl7 Radha Donato RN RN bm7
--- NOTE | 2022-03-09 17:36 | EDPHYS ---
Physician Documentation [facility] Name: Heather Coon Age: 52 yrs Sex: Female : 1970 Arrival Date: 03/09/2022 Time: 11:07 Bed 15 Private MD: ED Physician HaleighHeather HPI: 03/09 11:15 This 52 yrs old Female presents to ER via Wheelchair with complaints of Chest Pain. cp 11:15 The patient or guardian reports chest pain that is located primarily in the anterior cp chest wall. 11:15 Onset: today. The pain does not radiate. cp 11:15 Associated signs and symptoms: Pertinent positives: abdominal pain, nausea, vomiting, cp Pertinent negatives: cough. 11:15 The chest pain is described as constant. Duration: The patient or guardian reports a cp single episode, that is still ongoing, and unchanged. Patient reports chest pain started today with nausea and vomiting. Reported having 2 seizures prior to arrival to ED but admits to not taking prescribed Keppra due to inability to afford medication. 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 - Social history:: Smoking status: Patient denies any tobacco usage or history of. ROS: 11:20 Constitutional: Negative for body aches, chills, fever, poor PO intake. cp 11:20 Eyes: Negative for injury, pain, redness, and discharge. cp 11:20 ENT: Negative for drainage from ear(s), ear pain, sore throat, difficulty swallowing, difficulty handling secretions. 11:20 Cardiovascular: Positive for chest pain, Negative for edema, palpitations. 11:20 Respiratory: Negative for cough, shortness of breath, wheezing. 11:20 Abdomen/GI: Negative for abdominal pain, nausea, vomiting, and diarrhea. 11:20 Back: Negative for pain at rest, pain with movement. 11:20 : Negative for urinary symptoms. 11:20 Neuro: Positive for history of seizures, Negative for altered mental status, dizziness, weakness. 11:20 All other systems are negative. Exam: 11:25 Constitutional: The patient appears in no acute distress, alert, awake, cp non-diaphoretic, non-toxic, well developed, well nourished. 11:25 Head/Face: Normocephalic, atraumatic. cp 11:25 Eyes: Periorbital structures: appear normal, Pupils: equal, round, and reactive to cp light and accomodation, Extraocular movements: intact throughout, Conjunctiva: normal, no exudate, no injection, Sclera: no appreciated abnormality, Lids and lashes: appear normal, bilaterally. 11:25 ENT: External ear(s): are unremarkable, Nose: is normal, Mouth: Lips: moist, Oral cp mucosa: pink and intact, moist, Posterior pharynx: Airway: no evidence of obstruction, patent. 11:25 Neck: ROM/movement: is normal, is supple, without pain, no range of motions limitations. 11:25 Chest/axilla: Inspection: normal. 11:25 Cardiovascular: Rate: tachycardic, Rhythm: regular, Edema: is not appreciated, JVD: is not appreciated. 11:25 Respiratory: the patient does not display signs of respiratory distress, Respirations: normal, no use of accessory muscles, no retractions, labored breathing, is not present, Breath sounds: are clear throughout, no decreased breath sounds, no stridor, no wheezing. 11:25 Abdomen/GI: Inspection: abdomen appears normal, Bowel sounds: active, all quadrants, Palpation: soft, in all quadrants, moderate abdominal tenderness, in the right upper quadrant and left upper quadrant, rebound tenderness, is not appreciated, involuntary guarding, is not appreciated. 11:25 Neuro: Orientation: to person, place \T\ time. Mentation: is normal, Motor: moves all fours, strength is normal, Sensation: no obvious gross deficits. 11:30 ECG was reviewed by the Attending Physician. 16:00 ECG was reviewed by the Attending Physician. Vital Signs: 11:32 BP 163 / 96; Pulse 108; Resp 18 S; Pulse Ox 98% on R/A; iw 12:16 BP 163 / 99; Pulse 78; Resp 16; Pulse Ox 100% on R/A; Pain 3/10; bm7 12:44 BP 140 / 93; Pulse 96; Resp 17; Pulse Ox 95% ; jl7 13:57 BP 130 / 71; Pulse 66; Resp 18; Pulse Ox 100% on R/A; Pain 5/10; bm7 14:50 BP 116 / 71; Pulse 95; Resp 18; Temp 98.2; Pulse Ox 95% on R/A; jl7 15:51 BP 123 / 79; Pulse 83; Resp 16; Pulse Ox 100% on R/A; Pain 2/10; bm7 16:13 BP 114 / 80; Pulse 76; Resp 16; Pulse Ox 99% on R/A; Pain 5/10; bm7 17:10 BP 116 / 66; Pulse 86; Resp 16; Pulse Ox 99% on R/A; Pain 2/10; bm7 17:21 BP 133 / 79; Pulse 90; Resp 16; Pulse Ox 100% on R/A; Pain 2/10; bm7 MDM: 11:13 Patient medically screened. cp 12:00 Differential diagnosis: abnormal EKG, acute myocardial infarction, chest wall pain, cp pancreatitis, pleurisy, pneumonia, pneumothorax, pulmonary embolus, stable angina, thoracic aortic disection, unstable angina. 17:35 The patient was given aspirin in the Emergency Department. cp 17:35 Data reviewed: vital signs, nurses notes, lab test result(s), EKG, radiologic studies, cp CT scan, plain films. Test interpretation: by ED physician or midlevel provider: ECG, plain radiologic studies. 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 Response to treatment: VSS. Pain improved. Initial and repeat EKGs and troponin levels negative. No seizure activity observed while monitoring patient. Will discharge to home for continued monitoring. 03/09 11:13 Order name: Basic Metabolic Panel; Complete Time: 12:31 cp 03/09 12:31 Interpretation: Normal except: CL 108; GLUC 124; GFR 80; CA 8.2. cp 03/09 11:13 Order name: CBC with Diff; Complete Time: 12:31 cp 03/09 12:31 Interpretation: Normal except: PLT 469; RDW 17.1; MPV 6.2; BASO% 1.5. cp 03/09 11:13 Order name: LFT's; Complete Time: 12:31 cp 03/09 11:13 Order name: Magnesium; Complete Time: 12:31 cp 03/09 11:13 Order name: NT PRO-BNP; Complete Time: 12:31 cp 03/09 12:32 Interpretation: Abnormal: NT PRO-BNP 1117. cp 03/09 11:13 Order name: PT-INR; Complete Time: 13:44 cp 03/09 11:13 Order name: Troponin HS; Complete Time: 12:31 cp 03/09 11:13 Order name: XRAY Chest (1 view); Complete Time: 13:44 03/09 13:44 Interpretation: Report review. 03/09 11:13 Order name: UDS; Complete Time: 12:31 03/09 12:31 Interpretation: Normal except: BZO POSITIVE; SANTIAGO POSITIVE. 03/09 11:30 Order name: Urine Microscopic Only; Complete Time: 12:31 cp 03/09 11:59 Order name: Urine Dipstick-Ancillary; Complete Time: 12:31 EDVT 03/09 12:19 Order name: Urine Culture [facility] 03/09 15:31 Order name: Troponin High Sensitivity: redraw \T\1600; Complete Time: 17:09 cp 03/09 17:15 Order name: SARS RAPID; Complete Time: 19:10 jl7 03/09 11:13 Order name: EKG; Complete Time: 11:14 cp 03/09 11:13 Order name: Cardiac monitoring; Complete Time: 11:52 cp 03/09 11:13 Order name: EKG - Nurse/Tech; Complete Time: 11:31 cp 03/09 11:13 Order name: IV Saline Lock; Complete Time: 11:31 cp 03/09 11:13 Order name: Labs collected and sent; Complete Time: 11:31 cp 03/09 13:50 Order name: CT Aorta for Dissection; Complete Time: 15:29 cp 03/09 15:30 Interpretation: Report reviewed. 03/09 15:31 Order name: EKG; Complete Time: 15:31 cp 03/09 11:13 Order name: O2 Per Protocol; Complete Time: 11:52 cp 03/09 11:13 Order name: O2 Sat Monitoring; Complete Time: 11:52 cp 03/09 11:30 Order name: Urine Dipstick-Ancillary (obtain specimen); Complete Time: 12:16 cp 03/09 15:31 Order name: EKG - Nurse/Tech; Complete Time: 16:05 cp EC:30 Rate is 114 beats/min. Rhythm is regular. NV interval is normal. QRS interval is cp normal. QT interval is normal. Interpreted by me. Reviewed by me. 16:00 Rate is 80 beats/min. Rhythm is regular. NV interval is normal. QRS interval is normal. cp QT interval is normal. Interpreted by me. Reviewed by me. Administered Medications: 12:15 Drug: Keppra (levETIRAcetam) 1000 mg Route: IV; Rate: calculated rate; Site: right bm7 forearm; 13:18 Follow up: IV Status: Completed infusion; IV Intake: 100ml bm7 12:16 Drug: morphine 4 mg Route: IVP; Infused Over: 4 mins; Site: right wrist; bm7 13:19 Follow up: Response: Pain is decreased bm7 12:16 Drug: Zofran (Ondansetron) 4 mg Route: IVP; Site: right wrist; bm7 13:18 Follow up: Response: Nausea is decreased bm7 12:16 Drug: Pepcid (famotidine) 20 mg Route: IVP; Site: right wrist; bm7 13:18 Follow up: Response: No adverse reaction bm7 12:51 Drug: Aspirin Chewable Tablet 324 mg Route: PO; bm7 13:18 Follow up: Response: No adverse reaction bm7 13:56 Drug: morphine 4 mg Route: IVP; Infused Over: 4 mins; Site: right antecubital; bm7 15:50 Follow up: Response: Pain is decreased bm7 13:56 Drug: Zofran (Ondansetron) 4 mg Route: IVP; Site: right antecubital; bm7 15:50 Follow up: Response: Nausea is decreased bm7 16:13 Drug: Phenergan (promethazine) 25 mg Route: IVP; Site: right antecubital; bm7 16:48 Follow up: Response: Nausea is decreased bm7 16:13 Drug: Ketorolac 15 mg Route: IVP; Site: right antecubital; bm7 16:48 Follow up: Response: Pain is decreased bm7 Disposition: 19:10 STAFF ATTESTATION STATEMENT: I was immediately available onsite in the emergency sd2 department for consultation in the care of this patient. I did not see or examine this patient. Heather Ricardo MD. Disposition Summary: 03/09/22 17:35 Discharge Ordered Location: Home cp Problem: an ongoing problem cp Symptoms: have improved cp Condition: Stable cp Diagnosis - Chest pain, unspecified cp - Cocaine abuse cp - Other seizures cp Followup: cp - With: Private Physician - When: 2 - 3 days - Reason: Recheck today's complaints Discharge Instructions: - Discharge Summary Sheet cp - Nonspecific Chest Pain, Adult cp - Cocaine Use Disorder cp - Seizure, Adult cp - Aspirin and Your Heart cp Forms: - Medication Reconciliation Form cp - Thank You Letter cp - Antibiotic Education cp - Prescription Opioid Use cp Signatures: Dispatcher [employer] Lorena Guardado, RN Derrick Penaloza PA PA cp McCarthy, Brittany, BETH RN Heather Sandoval MD MD sd2
[2022-03-09 17:50] LABS: SARS-CoV-2 Antigen Rapid Res Negative (Negative)
[2022-03-09 19:04] VITALS: TEMP 98.2
[2022-03-09 19:19] VITALS: BP 133/79; O2SAT 100
--- NOTE | 2022-03-10 08:08 | EKG ---
Test Date: 2022-03-09 Test Time: 11:23:02 Ship Boss: CODY MEASUREMENT RESULTS: Intervals: Rate: 114 NC: 128 QRSD: 84 QT: 356 QTc: 490 [place]: P: 60 NC: 128 QRS: 87 T: 52 INTERPRETIVE STATEMENTS: Sinus tachycardia Low voltage QRS Borderline ECG Compared to ECG 03/04/2022 03:15:31 Sinus rhythm no longer present T-wave abnormality no longer present Electronically Signed On 03-10-22 08:06:27 CDT by Migel Warren
--- NOTE | 2022-03-10 08:08 | EKG ---
Test Date: 2022-03-09 Test Time: 15:55:44 Mounter Hand: BRUCE MEASUREMENT RESULTS: Intervals: Rate: 80 AK: 138 QRSD: 82 QT: 404 QTc: 465 [place]: P: 76 AK: 138 QRS: 128 T: 58 INTERPRETIVE STATEMENTS: Normal sinus rhythm with sinus arrhythmia Right axis deviation Low voltage QRS Cannot rule out Anterior infarct, age undetermined Abnormal ECG Compared to ECG 03/09/2022 11:23:02 Right-axis deviation now present Myocardial infarct finding now present Sinus tachycardia no longer present Electronically Signed On 03-10-22 08:06:23 CDT by Migel Warren
== END 2022-03-09 17:48 | disposition home or self-care (01) ==
LOC: ER 11:05
DX: R07.89 Other chest pain (principal); F14.10 Cocaine abuse, uncomplicated; G40.89 Other seizures; I10 Essential (primary) hypertension; F31.9 Bipolar disorder, unspecified
CPT/HCPCS: 36415; 71045; 71275; 74175; 80048; 80076; 80307; 81003; 81015; 83735; 83880; 84484; 85025; 85610; 87811; 93005; 99285; J1953; J2405; J2550; Q9967

== ENCOUNTER 2022-05-04 13:27 | Emergency (ER) | payer SELFPAY ==
--- OUTSIDE RECORDS SUMMARY | 2022-05-04 13:34 | XMS REPORT | Continuity of Care Document ---
:1970 Author Organization [facility] t Address [address] [place] [address] Care Team Providers Name Role Phone Pcp, Patient Does Not Have A Primary Care Physician [phone] SELINA MARTINES Attending Clinician Unavailable Sapna Vargas DO Attending Clinician Nithya Esteves MD Attending Clinician [phone] Selina Martines MD Attending Clinician Vaccine, Chung Pierson Attending Clinician Unavailable Shilpa Frederick MD Attending Clinician SHILPA FREDERICK Attending Clinician Unavailable NICHELLE ALLISON Attending Clinician Unavailable Sav Rondon MD Attending Clinician Nichelle Bishop Attending Clinician Doctor Unassigned, [place] Attending Clinician Unavailable Miky Nava RN Attending Clinician Unavailable Fabrice Gordillo Attending Clinician Ebrahim [employer], Rania Attending Clinician Unknown, Attending Attending Clinician Unavailable UNKNOWN, ATTENDING Attending Clinician Unavailable Anali Rascon Attending Clinician Yehuda Arcos MD Attending Clinician NITHYA ESTEVES Admitting Clinician Unavailable NICHELLE ALLISON Admitting Clinician Unavailable Payers Payer Name Policy Type Policy Number Effective Date Expiration Date Benjamin mack MEDICAID PENDING PENDING 2021 00:00:00 Problems Condition Condition Condition Status Onset Resolution Last Treating Co mments Source Name Details Category Date Date Treatment Clinician Date 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 9 ity of stenosis stenosis 00:00: [place] of neural of neural 00 Medi kwame canal of canal of Branch lumbar lumbar region region 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 9 ity of stenosis stenosis 00:00: [place] of of 00 Medical cervical cervical Branch spine spine Stroke-lik Stroke-lik Disease Active U nivers e symptoms e symptoms 9- it y of 00:00: [place] 00 Medical Branch Bipolar Bipolar Disease Active Univers disorder, disorder, 3-11 ity of in partial [place] 00:[place] remission, remission, 00 Me dical most most Branch recent recent episode episode manic manic 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 3-11 ity of stenosis stenosis 00:00: [place] of lumbar of lumbar 00 Medi kwame spine spine Branch Bilateral Bilateral Disease Active Uni vers acute acute 3-11 ity of otitis otitis 00:00: [place] media, media, 00 Medical recurrence recurrence Br anch not not specified, specified, unspecifie unspecifie d otitis d otitis media type media type Lumbar Lumbar Disease Active Univers spinal spinal 3-11 ity of stenosis stenosis 00:00: [place] 00 Medical Branch Right-side Right-side Disease Active U nivers d low back d low back 3-11 it y of pain with pain with 00:00[place] sciatica, sciatica, 00 Medi kwame sciatica sciatica Branch laterality laterality unspecifie unspecifie d d Generalize Generalize Disease Active U nivers d anxiety d anxiety 3-11 ity of disorder disorder 00:00: Medical Branch Agoraphobi Agoraphobi Disease Active U nivers a a 3- ity of 00:00: [place] [facility] Bipolar [...] Disease Active Univers mass, left mass, left 09-17 it y of 00:00: Medical Branch Anxiety Anxiety Disease Active Univers 3 ity of 00:00: [place] [facility] Lower back Lower back Disease Active U nivers pain pain 09-17 ity of 00:00: Medical Branch High blood High blood Disease Active U nivers pressure pressure 3 ity of 00:00: [place] [facility] COPD COPD Disease Active Univers [...] AC INGREDI 11-20 ity of 00:00: [place] [facility] Diclofen Propensi Active Hypertension Univers ac ty to 11-20 ity of adverse 00:00: [place] reaction 00 Medical s Branch GREEN DRUG Active Med Other-Cmnt Univer s TEA INGREDI - ity of 00:00: [place] [facility] Green Propensi Active Other - [...] Cigar Smoker Univ ersity of use [facility] Exposure to 2022-04-03 2022-04-13 Not sure [facility] SARS-CoV-2 (event) 00:00:00 13:44:00 [facility] Alcohol intake 2022-04-13 2022-04-13 0 /d University of 00:00:00 00:00:00 [facility] Cigarettes smoked 2015-11-21 2015-11-21 Univers ity of current (pack per 00:00:00 00:00:00 [facility] ) - Reported [place] Cigarette 2015-11-21 2015-11-21 University of pack-years 00:00:00 00:00:00 [facility] Tobacco use and 2015-11-21 2015-11-21 Smokeless Universit y of exposure 00:00:00 00:00:00 tobacco non-user [facility] Sex Ass[birth year] At [birth year] Universit y of 00:00:00 00:00:00 [facility] Smoking Status Start Date Stop Date Source Smokes tobacco daily 2015-11-21 00:00:00 Univers ity of [facility] Medications Ordered Filled Start Stop Current Ordering Indication Dosage Frequency Signature Comments Components Source Medication Medication Date Date Medication? Clinician (SIG) Name Name aspirin 81 Yes [id number] 81mg Take 1 U nivers mg chewable 9-28 tablet by ity of tablet 00:00: mouth in [place] 00 the Medical morning. [place] MULTIVITAMI Yes 1{tbl} Take 1 Tab Univers N ORAL 9-27 by mouth ity of 17:39: daily. [place] 14 [facility] omega-3 Yes 1g Take 1 g Univer s fatty 9-27 by mouth ity of acids-vitam 17:39: daily. [place] in E (FISH 14 Medical OIL) 1,000 Branch mg capsule loratadine Yes Take by Univ ers (CLARITIN 04-15 mouth ity of LIQUI-GEL) 17:39: daily. [place] 10 mg 14 Medical capsule Branch ondansetron Yes 4mg Take 4 mg U nivers (ZOFRAN) 4 04-15 by mouth ity o f mg tablet 17:39: every 8 [place] 14 (eight) Medical hours as Branch needed. pantoprazol Yes 40mg Take 40 mg Univers e 04-15 by mouth ity of (PROTONIX) 17:39: daily. [place] 40 mg EC 14 Medical tablet Branch lisinopril- 2021- No 1{tbl} Take 1 U nivers hydrochloro 04-15 tablet by it y of thiazide 15:58: 00:00 mouth [place] 20-12.5 mg 35 :00 daily. Medical per tablet Branch levetiracet 2021- No Take by Un lois am (KEPPRA 04-15 mouth. ity of ORAL) 15:58: 00:00 [place] 35 :00 Medical Branch acetaminoph 2021- No 1{tbl} 1 tablet, Univers en-codeine 04-15 Oral, ity of (TYLENOL 05:39: 14:39 Q6HPRN, [place] #4) 300-60 23 :42 Starting Medic al mg tablet 1 on [place] tablet 04/15/22 at 0039, Until Thu04/15/22 at 0939, Routine, Pain (scale 4-6), Pain (scale 1-3) LORazepam 2021- No 2mg 2 mg, Univer s (ATIVAN) 04-15 Oral, ity of tablet 2 mg 03:30: 10:27 ONCE, 1 [place] 00 :00 dose, On Medical Thu Branch 04/14/22 at 2230, Routine levETIRAcet Yes 1000mg 1,000 mg, Univers am (KEPPRA) 04-15 Oral, BID, it y of tablet 02:45: First dose [place] 1,000 mg 00 (after Medical last Branch modificati on) on Thu04/14/22 at 2145, Until Discontinu ed, Routine ketorolac 2021- No 15mg 15 mg, Unive rs (TORADOL) 04-15 Slow IV ity of injection 02:13: 02:22 Push, [place] 15 mg 00 :00 ONCE, 1 Medical dose, On Branch Thu04/14/22 at 2115, Routine levETIRAcet Yes [id number] 1000mg Take 1 Univers am 1,000 mg - tablet by ity of tablet 00:00: mouth in [place] 00 the Medical morning Branch and 1 tablet in the evening. atorvastati Yes [id number] 40mg Take 1 Univers n 40 mg - tablet by ity of tablet 00:00: mouth at [place] 00 bedtime. [facility] Branch lidocaine 5 0 2021- Yes [id number] 1{patch Apply 1 Univers % (700 04-15 10-05 } Patch to ity of mg/patch) 00:00: 04:59 area(s) in [place] patch 00 :00 the [facility] morning Branch for 7 days. HYDROcodone 2021-0 2021- Yes [id number] 1{tbl} Take 1 U nivers -acetaminop 04-15 10-03 tablet by it y of hen 5-325 00:00: 04:59 mouth [place] mg tablet 00 :00 every 6 Medical (six) Branch hours as needed for Pain (scale 7-10) for up to 5 days. Indication s: acute pain lidocaine Yes 1{patch 1 Patch, U nivers (LIDODERM) 04-14 } Topical, ity o f 5 % (700 21:45: Administer [place] as mg/patch) 29 over 12 Medical patch 1 Hours, Branch Patch [id number], Starting on Thu04/14/22 at 1645, Until Discontinu ed, Routine, Localized pain aspirin Yes 81mg 81 mg, Univers chewable 04-14 Oral, ity of tablet 81 21:30: DAILY, [place] mg 00 First dose Medical on Thu04/14/22 at 1630, Until Discontinu ed, Routine acetaminoph 0 Yes 650mg 650 mg, Un lois en 04-14 Oral, ity of (TYLENOL) 21:29: Q6HPRN, [place] tablet 650 25 Starting Medic al mg on Thu26/22 at 1629, Until Discontinu ed, Routine, Pain (scale 1-3), Temp > 38.5 C, Temp > 37.5 C HYDROcodone 2021- No 1{tbl} 1 tablet, Univers -acetaminop 04-14 Oral, ity of hen (NORCO) 21:29: 05:39 Q6HPRN, [place] 10-325 mg 02 :41 Starting Medica l tablet [address] [facility] tablet 04/14/22 at 1629, Until Tu04/15/22 at 0039, Routine, Pain (scale 7-10), Pain (scale 4-6) sulfur 2021-0 2021- No [id number] 5mL 5 mL, Univ ers hexafluorid 04-14 Intravenou i ty of e microsphr 16:45: 16:45 s, ONCE, 1 [place] (LUMASON) 00 :00 dose, On Medica l injection 5 Thu [place] mL 04/14/22 at [address], [address] team member approving Restricted medication : GERSON [employer]STER clopidogreL Yes 75mg 75 mg, Univ ers (PLAVIX) 75 04-14 Oral, ity of mg tablet 14:00: DAILY, [place] 75 mg 00 First dose Medical on [facility] 04/14/22 at 0900, Until Discontinu ed, Routine pantoprazol Yes 40mg 40 mg, Univ ers e 04-14 Oral, ity of (PROTONIX) 14:00: DAILY, [place] EC tablet 00 First dose Medi kwame [address] [facility] 04/14/22 at 0900, Until Discontinu ed, Routine atorvastati Yes 40mg 40 mg, Univ ers n (LIPITOR) 04-14 Oral, QHS, it y of tablet 40 02:00: First dose [place] mg 00 on [facility] 04/13/22 at Branch 2100, Until Discontinu ed, Routine LORazepam 2021- No 1mg 1 mg, Univer s (ATIVAN) 04-14 Oral, ity of tablet 1 mg 01:30: 01:45 ONCE, 1 [place] 00 :00 dose, On [facility] 04/13/22 at 2030, Routine methocarbam Yes 500mg 500 mg, Un lois oL 04-14 Oral, QID, ity of (ROBAXIN) 01:00: First dose [place] tablet 500 00 on [facility] mg 04/13/22 at Branch 1999, Until Discontinu ed, Routine heparin Yes 5000U 5,000 Univers (porcine) 04-14 Units, ity of injection 01:00: Subcutaneo [place] 5,000 Units 00 us, Q12H, Med ical First dose Branch on 04/13/22 at 2000, Until Discontinu ed, Routine acetaminoph 2021- No 650mg 650 mg, U nivers en 04-14 Oral, ity of (TYLENOL) 00:23: 21:29 Q6HPRN, [place] tablet 650 25 :42 Starting Medic al mg on [place] Branch 04/13/22 at 1923, Until 04/14/22 at 1629, Routine, Pain (scale 1-3), Pain (scale 4-6), Temp > 38.5 C, Temp > 37.5 C lidocaine 2021- No 1{patch 1 Patch, Univers (LIDODERM) 04-14 } Topical, ity of 5 % (700 00:22: 13:51 Administer [place] mg/patch) 00 :00 over 12 Medical patch 1 Hours, Branch Patch ONCE, 1 dose, On 04/13/22 at 1930, Routine FENTanyl PF 2021- No 50ug 50 mcg, Un lois (SUBLIMAZE 04-13 Slow IV ity o f (PF)) 20:30: 19:22 Push, [place] injection 00 :00 ONCE, 1 Medical 50 mcg dose, On Branch [place] 04/13/22 at 1530, Routine aspirin 2021- No 650mg 650 mg, Unive rs chewable 04-13 Oral, ity of tablet 650 20:15: 20:15 ONCE, 1 [place] mg 00 :00 dose, On Medical [place] 04/13/22 at 1515, Routine clopidogreL 2021- No 300mg 300 mg, U nivers (PLAVIX) 04-13 Oral, ity of 300 mg 20:00: 19:15 ONCE, 1 [place] tablet 300 00 :00 dose, On Medic al mg [facility] 04/13/22 at 1500, Routine ondansetron 2021- No 4mg 4 mg, Slow Univers (ZOFRAN 04-13 IV Push, ity of (PF)) 19:30: 19:22 ONCE, 1 [place] injection 4 00 :00 dose, On Medi kwame mg [facility] 04/13/22 at 1430, MICHAEL iopamidol 2021- No [id number] 100mL 100 mL, Univers (ISOVUE 04-13 Intravenou ity o f 370-500 mL) 18:31: 18:32 s, ONCE, 1 [place] injection 00 :00 dose, On Medica l 100 mL [facility] 04/13/22 at 1345, Routine NaCl 0.9% Yes 5mL 5 mL, Slow Un lois (NS) 04-13 IV Push, ity of injection 5 18:14: PRN - SEE [place] mL 11 [facility] Medical , Branch Starting on [place] 04/13/22 at 1314, Until Discontinu ed, 10 mL aspirin Yes 324mg 324 mg, Univer s chewable 5-08 Oral, ity of tablet 324 14:00: DAILY, [place] mg 00 First dose Medical on [facility] 11/24/21 at 0900, Until Discontinu ed, Routine metoclopram No 10mg 10 mg, Uni vers iker HCl 11-23 Slow IV ity of (REGLAN) 22:30: 21:24 Push, [place] injection 00 :00 ONCE, 1 Medical 10 mg dose, On Branch 11/23/21 at 1730, MICHAEL acetaminoph 2021- No 1000mg 1,000 mg, Univers en 11-23 [...] 11/23/21 Branch at 1645, MICHAEL NaCl 0.9% No 1000mL at 999 Uni vers (NS) bolus 11-23 mL/hr, ity of infusion 21:30: 21:56 1,000 mL, [place] 1,000 mL 00 :00 IV Medical Infusion, Branch ONCE, 1 dose, On 11/23/21 at 1630, MICHAEL LORazepam No 4mg 4 mg, Slow U nivers (ATIVAN) 11-23 IV Push, ity of injection 4 21:30: 20:23 ONCE, 1 [place] mg 00 :00 dose, On Medical 11/23/21 Branch at 1630, STAT levETIRAcet No 1500mg 1,500 mg, Univers am (KEPPRA) [...] ity of mg 01:58: 02:13 ONCE, 1 [place] 00 :00 dose, Sat Medical 03/16/21 at [place] 2100, STAT ondansetron 2020- No 4mg 4 mg, Slow Univers (ZOFRAN 03-17 IV Push, ity of (PF)) 01:58: 02:12 ONCE, 1 [place] injection 4 00 :00 dose, Sat Med ical mg 03/16/21 at Branch 2100, MICHAEL morpHINE 2020- No 4mg 4 mg, Slow Un lois injection 4 03-17 IV Push, ity of mg 01:58: 02:13 ONCE, 1 [place] 00 :00 dose, [facility] Medical 03/16/21 at [place] 2100, STAT ondansetron 2020- No 4mg 4 mg, Slow Univers (ZOFRAN 03-17 IV Push, ity of (PF)) 01:58: 02:12 ONCE, 1 [place] injection 4 00 :00 dose, Sat Med ical mg 03/16/21 at Branch 2100, MICHAEL ipratropium 2020- No 3mL 3 mL, Univ ers -albuteroL 03-17 Inhalation it y of (DUONEB) 01:57: 02:15 , ONCE, 1 [place] 0.5 mg-3 00 :00 dose, Sat Medica l mg(2.5 mg 03/16/21 at [facility] base)/3 mL 2100, MICHAEL nebulizer solution 3 [...] IV ity of succ 01:57: 02:11 Push, [place] (SOLU-MEDRO 00 :00 ONCE, 1 Medic al [...] IV ity of succ 01:57: 02:11 Push, [place] (SOLU-MEDRO 00 :00 ONCE, 1 Medic al [...] nebulizer solution 3 mL levoFLOXaci 2020- No [id number] 500mg Take 1 Univers n 500 mg 03-17 tablet by ity o f tablet 00:00: 04:59 mouth [place] 00 :00 daily for Medical 6 days. Branch levoFLOXaci 2020- No [id number] 500mg Take 1 Univers n 500 mg 03-17 tablet by ity o f tablet 00:00: 04:59 mouth [place] 00 :00 daily for Medical 6 days. [place] levoFLOXaci 2020- No [id number] 500mg Take 1 Univers n 500 mg 03-17 tablet by ity o f tablet 00:00: 04:59 mouth [place] 00 :00 daily for Medical 6 days. [place] levoFLOXaci 2020- No [id number] 500mg Take 1 Univers n 500 mg 03-17 tablet by ity o f tablet 00:00: 04:59 mouth [place] 00 :00 daily for Medical 6 days. [place] predniSONE No [id number] 30mg Take 3 Univers 10 mg 03-17 tablets by ity of tablet 00:00: 04:59 mouth [place] 00 :00 daily for Medical 4 days. [place] predniSONE No [id number] 30mg Take 3 Univers 10 mg 03-17 tablets by ity of tablet 00:00: 04:59 mouth [place] 00 :00 daily for Medical 4 days. [place] predniSONE 2020- No [id number] 30mg Take 3 Univers 10 mg 03-17 tablets by ity of tablet 00:00: 04:59 mouth [place] 00 :00 daily for Medical 4 days. [place] predniSONE No [id number] 30mg Take 3 Univers 10 mg 03-17 tablets by ity of tablet 00:00: 04:59 mouth [place] 00 :00 daily for Medical 4 days. [place] albuterol 2020- No [id number] 4{puff} 4 Puff, Univers (VENTOLIN) 03-15 Inhalation it y of inhaler 4 01:45: 00:44 , ONCE, 1 [place] Puff 00 :00 dose, [facility] Medical 03/14/21 at [place] 2044, Routine dexamethaso 2020- No [id number] 10mg 10 mg, Univers ne 03-15 Intramuscu ity of (DECADRON) 01:45: 00:45 lar, ONCE, [place] injection 00 :00 1 dose, Medical 10 mg [place] Branch 03/14/21 at 2045, Routine albuterol 2020-0 Yes [id number] 2.5mg Inhale 3 Univers 2.5 mg /3 8-27 mL every 4 ity of mL (0.083 00:00: (four) [place] %) 00 hours as Medical nebulizer needed for Bran ch solution Wheezing or Shortness of Breath. albuterol 2020-0 Yes [id number] 2.5mg Inhale 3 Univers 2.5 mg /3 8-27 mL every 4 ity of mL (0.083 00:00: (four) [place] %) 00 hours as Medical nebulizer needed for Bran ch solution Wheezing or Shortness of Breath. albuterol 2020-0 Yes [id number] 2.5mg Inhale 3 Univers 2.5 mg /3 8-27 mL every 4 ity of mL (0.083 00:00: (four) [place] %) 00 hours as Medical nebulizer needed for Bran ch solution Wheezing or Shortness of Breath. albuterol 2020-0 Yes [id number] 2.5mg Inhale 3 Univers 2.5 mg /3 8-27 mL every 4 ity of mL (0.083 00:00: (four) [place] %) 00 hours as Medical nebulizer needed for Bran ch solution Wheezing or Shortness of Breath. albuterol 2020-0 Yes [id number] 2.5mg Inhale 3 Univers 2.5 mg /3 8-27 mL every 4 ity of mL (0.083 00:00: (four) [place] %) 00 hours as Medical nebulizer needed for Bran ch solution Wheezing or Shortness of Breath. albuterol 2020-0 Yes [id number] 2.5mg Inhale 3 Univers 2.5 mg /3 8-27 mL every 4 ity of mL (0.083 00:00: (four) [place] %) 00 hours as Medical nebulizer needed for Bran ch solution Wheezing or Shortness of Breath. albuterol 2020-0 Yes [id number] 2.5mg Inhale 3 Univers 2.5 mg /3 8-27 mL every 4 ity of mL (0.083 00:00: (four) [place] %) 00 hours as Medical nebulizer needed for Bran ch solution Wheezing or Shortness of Breath. albuterol 2020-0 Yes [id number] 2.5mg Inhale 3 Univers 2.5 mg /3 8-27 mL every 4 ity of mL (0.083 00:00: (four) [place] %) 00 hours as Medical nebulizer needed for Bran ch solution Wheezing or Shortness of Breath. albuterol 2020-0 Yes [id number] 2.5mg Inhale 3 Univers 2.5 mg /3 8-27 mL every 4 ity of mL (0.083 00:00: (four) [place] %) 00 hours as Medical nebulizer needed for Bran ch solution Wheezing or Shortness of Breath. albuterol 2020-0 Yes [id number] 2.5mg Inhale 3 Univers 2.5 mg /3 8-27 mL every 4 ity of mL (0.083 00:00: (four) [place] %) 00 hours as Medical nebulizer needed for Bran ch solution Wheezing or Shortness of Breath. albuterol 2020-0 Yes [id number] 2.5mg Inhale 3 Univers 2.5 mg /3 8-27 mL every 4 ity of mL (0.083 00:00: (four) [place] %) 00 hours as Medical nebulizer needed for Bran ch solution Wheezing or Shortness of Breath. levETIRAcet 2020- No 1000mg 1,000 mg, Univers am (KEPPRA) 02-19-03 IV ity of in NACL 20:15: 19:30 Infusion, [place] (ISO-OS) 00 :00 ONCE, 1 Medical 1,000 dose, Tue Branch mg/100 mL 02/19/21 at RTU 1515, Administer over 15 Minutes, 100 mL levetiracet 0 Yes Take by Uni vers am (KEPPRA - mouth. ity of ORAL) 19:45: [address] levetiracet 2020-0 Yes Take by Uni vers am (KEPPRA 8-03 mouth. ity of ORAL) 19:45: [address] levetiracet 2020-0 Yes Take by Uni vers am (KEPPRA - mouth. ity of ORAL) 19:45: [address] levetiracet 2020-0 Yes Take by Uni vers am (KEPPRA 803 mouth. ity of ORAL) 19:45: [address] levetiracet Yes Take by Uni vers am (KEPPRA 8 mouth. ity of ORAL) 19:45: [address] levetiracet Yes Take by Uni vers am (KEPPRA 02-19 mouth. ity of ORAL) 19:45: [address] LISINOPRIL- 2020- No Take by Un lois HYDROCHLORO 02-19 mouth. ity o f THIAZIDE 19:41: 00:00 [place] ORAL 15 :00 [facility] dicyclomine 2020- No 20mg 20 mg, [...] Medica l NaCl 0.9% 02/19/21 at [facility] h (NS) 50 mL 1415, 50 piggyback mL morpHINE 2020- No 4mg 4 mg, Slow Un lois injection 4 02-19 IV Push, ity of mg 17:15: 17:05 ONCE, 1 [place] 00 :00 dose, [facility] Medical 02/19/21 at Branch 1215, STAT NaCl [...] mg 02/19/21 at Branch 1200, MICHAEL iopamidol 0 202- No [id number] 100mL 100 mL, Univers (ISOVUE 02-19 0803 Intravenou ity o f 370-500 mL) 16:35: 16:45 s, ONCE, 1 [place] injection 00 :00 dose, Tue Medic al 100 mL 02/19/21 at Branch 1145, Routine levetiracet 0 Yes Take by Uni vers am (KEPPRA 8-03 mouth. ity of ORAL) 14:45: [address] levetiracet 0 Yes Take by Uni vers am (KEPPRA 8-03 mouth. ity of ORAL) 14:45: [address] levetiracet 2020-0 Yes Take by Uni vers am (KEPPRA 8-03 mouth. ity of ORAL) 14:45: [address] levetiracet 0 Yes Take by Uni vers am (KEPPRA 8-03 mouth. ity of ORAL) 14:45: [address] levetiracet 0 Yes Take by Uni vers am (KEPPRA 8-03 mouth. ity of ORAL) 14:45: [address] proMETHazin 2020-0 Yes [id number] 25mg Take 1 Univers e 25 mg 8-03 tablet by ity of tablet 00:00: mouth [place] 00 every 6 Medical (six) Branch hours as needed for Nausea and Vomiting (N/V). dicyclomine 2020-0 Yes [id number] 20mg Take 1 Univers 20 mg 8-03 tablet by ity of tablet 00:00: mouth 4 [place] 00 (four) Medical times Branch daily as needed for Abdominal pain. proMETHazin 2020-0 Yes [id number] 25mg Take 1 Univers e 25 mg 8-03 tablet by ity of tablet 00:00: mouth [place] 00 every 6 Medical (six) Branch hours as needed for Nausea and Vomiting (N/V). dicyclomine 2020-0 Yes [id number] 20mg Take 1 Univers 20 mg 8-03 tablet by ity of tablet 00:00: mouth 4 [place] 00 (four) Medical times Branch daily as needed for Abdominal pain. proMETHazin 2021-0 Yes [id number] 25mg Take 1 Univers e 25 mg 8-03 tablet by ity of tablet 00:00: mouth [place] 00 every 6 Medical (six) Branch hours as needed for Nausea and Vomiting (N/V). dicyclomine 2020-0 Yes [id number] 20mg Take 1 Univers 20 mg 8-03 tablet by ity of tablet 00:00: mouth 4 [place] 00 (four) Medical times Branch daily as needed for Abdominal pain. proMETHazin 2020-0 Yes [id number] 25mg Take 1 Univers e 25 mg 8-03 tablet by ity of tablet 00:00: mouth [place] 00 every 6 Medical (six) Branch hours as needed for Nausea and Vomiting (N/V). dicyclomine 2020-0 Yes [id number] 20mg Take 1 Univers 20 mg 8-03 tablet by ity of tablet 00:00: mouth 4 [place] 00 (four) Medical times Branch daily as needed for Abdominal pain. proMETHazin 2020-0 Yes [id number] 25mg Take 1 Univers e 25 mg 8-03 tablet by ity of tablet 00:00: mouth [place] 00 every 6 Medical (six) Branch hours as needed for Nausea and Vomiting (N/V). dicyclomine 2020-0 Yes [id number] 20mg Take 1 Univers 20 mg 8-03 tablet by ity of tablet 00:00: mouth 4 00 (four) Medical times Branch daily as needed for Abdominal pain. proMETHazin 2020-0 Yes [id number] 25mg Take 1 Univers e 25 mg 8-03 tablet by ity of tablet 00:00: mouth [place] 00 every 6 Medical (six) Branch hours as needed for Nausea and Vomiting (N/V). dicyclomine 2020-0 Yes [id number] 20mg Take 1 Univers 20 mg 8-03 tablet by ity of tablet 00:00: mouth 4 [place] 00 (four) Medical times Branch daily as needed for Abdominal pain. proMETHazin 2020-0 Yes [id number] 25mg Take 1 Univers e 25 mg 8-03 tablet by ity of tablet 00:00: mouth [place] 00 every 6 Medical (six) Branch hours as needed for Nausea and Vomiting (N/V). dicyclomine 2020-0 Yes [id number] 20mg Take 1 Univers 20 mg 8-03 tablet by ity of tablet 00:00: mouth 4 00 (four) Medical times Branch daily as needed for Abdominal pain. proMETHazin 2020-0 Yes [id number] 25mg Take 1 Univers e 25 mg 8-03 tablet by ity of tablet 00:00: mouth [place] 00 every 6 Medical (six) Branch hours as needed for Nausea and Vomiting (N/V). dicyclomine 2020-0 Yes [id number] 20mg Take 1 Univers 20 mg 8-03 tablet by ity of tablet 00:00: mouth (four) Medical times Branch daily as needed for Abdominal pain. proMETHazin 2020-0 Yes [id number] 25mg Take 1 Univers e 25 mg 8-03 tablet by ity of tablet 00:00: mouth [place] 00 every 6 Medical (six) Branch hours as needed for Nausea and Vomiting (N/V). dicyclomine 2020-0 Yes [id number] 20mg Take 1 Univers 20 mg 8-03 tablet by ity of tablet 00:00: mouth (four) Medical times Branch daily as needed for Abdominal pain. proMETHazin 2020-0 Yes [id number] 25mg Take 1 Univers e 25 mg 8-03 tablet by ity of tablet 00:00: mouth [place] 00 every 6 Medical (six) Branch hours as needed for Nausea and Vomiting (N/V). dicyclomine 2020-0 Yes [id number] 20mg Take 1 Univers 20 mg 8-03 tablet by ity of tablet 00:00: mouth (four) Medical times Branch daily as needed for Abdominal pain. proMETHazin 2020-0 Yes [id number] 25mg Take 1 Univers e 25 mg 8-03 tablet by ity of tablet 00:00: mouth [place] 00 every 6 Medical (six) Branch hours as needed for Nausea and Vomiting (N/V). dicyclomine 2020-0 Yes [id number] 20mg Take 1 Univers 20 mg 8-03 tablet by ity of tablet 00:00: mouth 4 00 (four) Medical times Branch daily as needed for Abdominal pain. proMETHazin 2020-0 Yes [id number] 25mg Take 1 Univers e 25 mg 8-03 tablet by ity of tablet 00:00: mouth [place] 00 every 6 Medical (six) Branch hours as needed for Nausea and Vomiting (N/V). dicyclomine Yes [id number] 20mg Take 1 Univers 20 mg 8- tablet by ity of tablet 00:00: mouth 4 00 (four) Medical times Branch daily as needed for Abdominal pain. ZONISAMIDE Yes TAKE 1 Unive rs 100 mg 11-15 CAPSULE BY ity of capsule 00:00: MOUTH [...] by mouth ity of (PROTONIX) 20:05: daily. [place] 40 mg EC Medical tablet Branch ondansetron Yes 4mg Take 4 mg U nivers (ZOFRAN) 4 7-24 by mouth ity o f mg tablet 20:05: every 8 (eight) Medical hours as Branch needed. pantoprazol 0 Yes 40mg Take 40 mg Univers e 7-24 by mouth ity of (PROTONIX) 20:05: daily. [place] 40 mg EC Medical tablet Branch LISINOPRIL- Yes Take by Uni vers HYDROCHLORO 7-24 mouth. ity of THIAZIDE 20:05: [place] ORAL Medical Branch ondansetron Yes 4mg Take 4 mg U nivers (ZOFRAN) 4 7-24 by mouth ity o f mg tablet 20:05: every 8 [place] (eight) Medical hours as Branch needed. pantoprazol 0 Yes 40mg Take 40 mg Univers e 7-24 by mouth ity of (PROTONIX) 20:05: daily. [place] 40 mg EC Medical tablet Branch ondansetron [...] mg EC 01 Medical tablet Branch lisinopril- 0 Yes 1{tbl} Take 1 Un lois hydrochloro 7-24 tablet by ity of thiazide 20:03: mouth [place] 20-12.5 mg 30 daily. Medical per tablet Branch lisinopril- 20180 Yes 1{tbl} Take 1 Un lois hydrochloro [...] 7-24 by mouth ity of 19:58: daily. [place] 14 Medical Branch loratadine 0 Yes Take by Univ ers (CLARITIN 7-24 mouth ity of LIQUI-GEL) 19:58: daily. [place] 10 mg 14 Medical capsule Branch MULTIVITAMI Yes 1{tbl} Take 1 Tab Univers N ORAL 7-24 by mouth ity of 19:58: daily. [place] [address] Medical Branch loratadine 0 Yes Take by Univ ers (CLARITIN 7-24 mouth ity of LIQUI-GEL) 19:58: daily. [place] 10 mg 14 Medical capsule Branch MULTIVITAMI Yes 1{tbl} Take 1 Tab Univers N ORAL 7-24 by mouth ity of 19:58: daily. [place] [address] Medical Branch loratadine Yes Take by Univ ers (CLARITIN 7-24 mouth ity of LIQUI-GEL) 19:58: daily. [place] 10 mg 14 Medical capsule Branch MULTIVITAMI Yes 1{tbl} Take 1 Tab Univers N ORAL 7-24 by mouth ity of 19:58: daily. [place] [address] Medical Branch loratadine Yes Take by Uni vers (CLARITIN 7-24 mouth ity of LIQUI-GEL) 19:58: daily. [place] 10 mg 14 Medical capsule Branch MULTIVITAMI Yes 1{tbl} Take 1 Tab Univers N ORAL 7-24 by mouth ity of 19:58: daily. [place] [address] Medical Branch loratadine Yes Take by Univ ers (CLARITIN 7-24 mouth ity of LIQUI-GEL) 19:58: daily. [place] 10 mg 14 Medical capsule Branch MULTIVITAMI Yes 1{tbl} Take 1 Tab Univers N ORAL 7-24 by mouth ity of 19:58: daily. [place] [address] Medical Branch loratadine 0 Yes Take by Univ ers (CLARITIN 7-24 mouth ity of LIQUI-GEL) 19:58: daily. [place] 10 mg 14 Medical capsule Branch MULTIVITAMI Yes 1{tbl} Take 1 Tab Univers N ORAL 7-24 by mouth ity of 19:58: daily. [place] [address] Medical Branch loratadine 0 Yes Take by Univ ers (CLARITIN 7-24 mouth ity of LIQUI-GEL) 19:58: daily. [place] 10 mg 14 Medical capsule Branch ondansetron 2018-0 Yes 4mg Take 4 mg U nivers (ZOFRAN) 4 7-24 by mouth ity o f mg tablet 15:05: every 8 [place] [address] (eight) Medical hours as Branch needed. pantoprazol 2018-0 Yes 40mg Take 40 mg Univers e 7-24 by mouth ity of (PROTONIX) 15:05: daily. [place] 40 mg EC 01 Medical tablet Branch ondansetron 2018-0 Yes 4mg Take 4 mg U nivers (ZOFRAN) 4 7-24 by mouth ity o f mg tablet 15:05: every 8 [place] [address] (eight) Medical hours as Branch needed. pantoprazol 2018-0 Yes 40mg Take 40 mg Univers e 7-24 by mouth ity of (PROTONIX) 15:05: daily. [place] 40 mg EC 01 Medical tablet Branch ondansetron 2018-0 Yes 4mg Take 4 mg U nivers (ZOFRAN) 4 7-24 by mouth ity o f mg tablet 15:05: every 8 [place] [address] (eight) Medical hours as Branch needed. pantoprazol 2018-0 Yes 40mg Take 40 mg Univers e 7-24 by mouth ity of (PROTONIX) 15:05: daily. [place] 40 mg EC 01 Medical tablet Branch ondansetron 2018-0 Yes 4mg Take 4 mg U nivers (ZOFRAN) 4 7-24 by mouth ity o f mg tablet 15:05: every 8 [place] [address] (eight) Medical hours as Branch needed. pantoprazol 2018-0 Yes 40mg Take 40 mg Univers e 7-24 by mouth ity of (PROTONIX) 15:05: daily. [place] 40 mg EC 01 Medical tablet Branch ondansetron 2018-0 Yes 4mg Take 4 mg U nivers (ZOFRAN) 4 7-24 by mouth ity o f mg tablet 15:05: every 8 [place] [address] (eight) Medical hours as Branch needed. pantoprazol 2018-0 Yes 40mg Take 40 mg Univers e 7-24 by mouth ity of (PROTONIX) 15:05: daily. [place] 40 mg EC 01 Medical tablet Branch [...] 30 daily. Medical per tablet Branch omega-3 2017-0 Yes 1g Take 1 g [...] Medical OIL) 1,000 Branch mg capsule MULTIVITAMI 2017-0 Yes 1{tbl} Take 1 Tab Univers N ORAL 7-24 by mouth ity of 14:58: daily. [place] [address] Medical Branch loratadine Yes Take by [facility] ers (CLARITIN 7-24 mouth ity of LIQUI-GEL) 14:58: daily. [place] 10 mg 14 Medical capsule Branch MULTIVITAMI Yes 1{tbl} Take 1 Tab Univers N ORAL 7-24 by mouth ity of 14:58: daily. [place] [address] Medical Branch loratadine Yes Take by [facility] ers (CLARITIN 7-24 mouth ity of LIQUI-GEL) 14:58: daily. [place] 10 mg 14 Medical capsule Branch MULTIVITAMI Yes 1{tbl} Take 1 Tab Univers N ORAL 7-24 by mouth ity of 14:58: daily. [place] [address] Medical Branch loratadine Yes Take by [facility] ers (CLARITIN 7-24 mouth ity of LIQUI-GEL) 14:58: daily. [place] 10 mg 14 Medical capsule Branch MULTIVITAMI Yes 1{tbl} Take 1 Tab Univers N ORAL 7-24 by mouth ity of 14:58: daily. [place] [address] Medical Branch loratadine Yes Take by [facility] ers (CLARITIN 7-24 mouth ity of LIQUI-GEL) 14:58: daily. [place] 10 mg 14 Medical capsule Branch MULTIVITAMI Yes 1{tbl} Take 1 Tab Univers N ORAL 7-24 by mouth ity of 14:58: daily. [place] [address] Medical Branch loratadine Yes Take by [facility] ers (CLARITIN 7-24 mouth ity of LIQUI-GEL) 14:58: daily. [place] 10 mg 14 Medical capsule Branch proMETHazin Yes 25mg Take 1 Univ ers e 5-04 tablet by ity of (PHENERGAN) 00:00: mouth [place] 25 mg 00 every 6 Medical tablet (six) Branch hours as needed for Nausea and Vomiting (N/V). proMETHazin No 25mg Take 1 Uni vers e [...] daily. [place] tablet 00 Medical Branch lisinopril 20160 Yes 40mg Take 1 Tab U nivers [...] 00:00: daily. [place] tablet 00 [facility] lisinopril Yes 40mg Take 1 Tab U nivers (PRINIVIL,Z 3-03 by mouth ity of ESTRIL) 40 00:00: daily. [place] mg tablet 00 [facility] Immunizations Ordered Filled Immunization Date Status Comments [facility] e Immunization Name Name SARS-COV-2 COVID-19 2022-02-19 Completed Unive rsity of PFIZER BA-SUCROSE 00:00:00 [place] Medical VACCINE (ROSE TOP) Branch SARS-COV-2 COVID-19 2022-02-19 Completed Unive rsity of PFIZER BA-SUCROSE 00:00:00 [facility] VACCINE (ROSE TOP) Branch SARS-COV-2 COVID-19 2021-05-24 Completed Unive rsity of PFIZER VACCINE 00:00:00 [facility] SARS-COV-2 COVID-19 2021-05-24 Completed Unive rsity of PFIZER VACCINE 00:00:00 [facility] SARS-COV-2 COVID-19 2021-05-24 Completed Unive rsity of PFIZER VACCINE 00:00:00 [facility] SARS-COV-2 COVID-19 2021-05-24 Completed Unive rsity of PFIZER VACCINE 00:00:00 [facility] SARS-COV-2 COVID-19 2021-05-03 Completed Unive rsity of PFIZER VACCINE 00:00:00 [facility] SARS-COV-2 COVID-19 2021-05-03 Completed Unive rsity of PFIZER VACCINE 00:00:00 [facility] SARS-COV-2 COVID-19 2021-05-03 Completed Unive rsity of PFIZER VACCINE 00:00:00 [facility] SARS-COV-2 COVID-19 2021-05-03 Completed Unive rsity of PFIZER VACCINE 00:00:00 [facility] SARS-COV-2 COVID-19 2021-05-03 Completed Unive rsity of PFIZER VACCINE 00:00:00 [facility] Vital Signs Vital Name Observation Time Observation Value Comments Source Systolic blood 2022-04-15 18:52:00 104 mm[Hg] Univer sity of pressure [facility] Diastolic blood 2022-04-15 18:52:00 82 mm[Hg] Unive rsity of pressure [facility] Heart rate 2022-04-15 18:52:00 114 /min Universi ty of [facility] Oxygen saturation in 2022-04-15 18:52:00 98 /min University of Arterial blood by [facility] Pulse oximetry Branch Body temperature 2022-04-15 16:14:00 36.28 Radha Univ ersity of [facility] Branch Respiratory rate 2022-04-15 16:14:00 17 /min Univ ersity of [facility] Body height 2022-04-13 21:08:00 160 cm [facility] Body weight 2022-04-13 21:08:00 91.173 kg [facility] BMI 2022-04-13 21:08:00 35.61 kg/m2 [facility] Systolic blood 2021-11-23 21:30:00 132 mm[Hg] Univer sity of pressure [facility] Diastolic blood 2021-11-23 21:30:00 76 mm[Hg] Unive rsity of pressure [facility] Heart rate 2021-11-23 21:30:00 95 /min Universi ty of [facility] Respiratory rate 2021-11-23 21:30:00 13 /min Univ ersity of [facility] Oxygen saturation in 2021-11-23 21:30:00 97 /min University of Arterial blood by [facility] Pulse oximetry Branch Body temperature 2021-11-23 20:15:00 37.56 Radha Univ ersity of [place] [facility] Systolic blood 2021-03-17 03:00:00 117 mm[Hg] Univer sity of pressure [place] [facility] Diastolic blood 2021-03-17 03:00:00 76 mm[Hg] Unive rsity of pressure [place] [facility] Heart rate 2021-03-17 03:00:00 104 /min Universi ty of [place] [facility] Respiratory rate 2021-03-17 03:00:00 28 /min Univ ersity of [place] [facility] Oxygen saturation in 2021-03-17 03:00:00 96 /min University of Arterial blood by [facility] Pulse oximetry Branch Body temperature 2021-03-17 00:39:00 37.11 Radha Univ ersity of [place] [facility] Body height 2021-03-17 00:39:00 160 cm Universi ty of [place] [facility] Body weight 2021-03-17 00:39:00 58.968 kg Universi ty of [place] [facility] BMI 2021-03-17 00:39:00 23.03 kg/m2 Universi ty of [place] [facility] Systolic blood 2021-03-15 00:14:00 149 mm[Hg] Univer sity of pressure [place] [facility] Diastolic blood 2021-03-15 00:14:00 78 mm[Hg] Unive rsity of pressure [place] [facility] Heart rate 2021-03-15 00:14:00 100 /min Universi ty of [place] [facility] Body temperature 2021-03-15 00:14:00 37.33 Radha Univ ersity of [place] [facility] Respiratory rate 2021-03-15 00:14:00 24 /min Univ ersity of [place] [facility] Body height 2021-03-15 00:14:00 160 cm Universi ty of [place] [facility] Body weight 2021-03-15 00:14:00 58.968 kg Universi ty of [place] [facility] BMI 2021-03-15 00:14:00 23.03 kg/m2 Universi ty of [place] [facility] Oxygen saturation in 2021-03-15 00:14:00 98 /min University of Arterial blood by [facility] Pulse oximetry Branch Systolic blood 2021-02-19 18:00:00 131 mm[Hg] Univer sity of pressure [place] [facility] Diastolic blood 2021-02-19 18:00:00 80 mm[Hg] Unive rsity of pressure [facility] Heart rate 2021-02-19 18:00:00 83 /min [facility] Respiratory rate 2021-02-19 18:00:00 18 /min [facility] Oxygen saturation in 2021-02-19 18:00:00 100 /min [facility] Arterial blood by [facility] Pulse oximetry [place] Body temperature 2021-02-19 15:47:00 37 Radha [facility] Body height 2021-02-19 15:47:00 160 cm [facility] Body weight 2021-02-19 15:47:00 58.968 kg [facility] BMI 2021-02-19 15:47:00 23.03 kg/m2 [facility] Procedures Procedure Date / Time Performing Clinician Source Performed VITAMIN D, 25-OH 2022-04-15 16:53:00 [place] [facility] MR THORACIC SPINE WO 2022-04-15 [facility] MR CERVICAL SPINE WO 2022-04-15 11:20:00 Harshil [facility] BASIC METABOLIC PANEL 2022-04-15 10:36:00 Charmaine Morataya [facility] (NA, K, CL, CO2, GLUCOSE, Medica l Branch BUN, CREATININE, CA) TEST, URINE 2022-04-15 04:39:00 [facility] URINE DRUG (IMMUNOASSAY) 2022-04-15 04:39:00 Soumya Chua [facility] - COMPREHENSIVE DRUG Medical [facility] SCREEN URINALYSIS 2022-04-15 04:39:00 Harshil [facility] TRANSTHORACIC ECHO (TTE) 2022-04-14 16:37:[address] [facility] W/ CONTRAST [facility] KEPPRA (LEVETIRACETAM) 2022-04-14 15:30:00 Harshil Soumya [facility] MAGNESIUM 2022-04-14 10:03:00 Harshil [facility] BASIC METABOLIC PANEL 2022-04-14 10:03:00 Harshil [facility] (NA, K, CL, CO2, GLUCOSE, Medica l Branch BUN, CREATININE, CA) MR LUMBAR SPINE WO 2022-04-14 02:48:12 Harshil [facility] CONTRAST Medical Branch MR STROKE BRAIN WO 2022-04-14 02:29:00 Harshil [facility] CONTRAST Medical Branch CT STROKE ANGIOGRAM HEAD 2022-04-13 18:40:00 Sapna Vargas [facility] CT STROKE ANGIOGRAM NECK 2022-04-13 18:40:00 Sapna Vargas [facility] CT STROKE HEAD WO 2022-04-13 18:36:00 Sapna Vargas [facility] CONTRAST Medical [place] TROPONIN I 2022-04-13 18:17:00 Sapna Vargas [facility] THYROID STIMULATING 2022-04-13 18:17:00 Harshil [facility] HORMONE Medical Branch BASIC METABOLIC PANEL 2022-04-13 18:17:00 Sapna Vargas [facility] (NA, K, CL, CO2, GLUCOSE, Medica l Branch BUN, CREATININE, CA) LIPID PANEL ([id number])(TOTAL 2022-04-13 18:17:00 Soumya Chua [facility] CHOLESTEROL, Medical Branch TRIGLYCERIDES, HDL) CBC WITHOUT DIFF 2022-04-13 18:17:00 Sapna Vargas [facility] Medical [place] GLYCOSYLATED HEMOGLOBIN 2022-04-13 18:17:00 Harshil [facility] (A1C) Medical Branch PROTHROMBIN TIME / INR 2022-04-13 18:17:00 Sapna Vargas [facility] ACTIVATED PARTIAL 2022-04-13 18:17:00 Sapna Vargas [facility] THRMPLAS DAVID [facility] Branch COVID-19 (ID NOW RAPID 2022-04-13 18:17:00 Sapna Vargas [facility] TESTING) Medical Branch LAB ONLY COVID 2022-04-13 18:17:00 Sapna Vargas [facility] INTERPRETATION Medical Branch HB ECG ROUTINE & RHYTHM 2022-04-13 18:15:49 Sapna Vargas [facility] CONSENT/REFUSAL FOR 2022-04-13 18:05:14 Doctor Joe [facility] DIAGNOSIS AND TREATMENT [place] [facility] HOSPITAL ADMISSION 2022-04-13 05:01:00 Doctor Joe [facility] SARS-COV-2 COVID-19 2022-02-19 15:21:12 Doctor Joe [facility] VACCINE 12 YRS+,0.3ML,[facility] [facility] - ROSE [facility] URINE DRUG (IMMUNOASSAY) 2021-11-23 21:21:00 Nichelle Allison [facility] SCREEN W/O REFLEX CT HEAD WO CONTRAST 2021-11-23 20:58:00 Nichelle Allison [facility] POCT TEST 2021-11-23 20:46:00 Nichelle Allison [facility] URINALYSIS 2021-11-23 20:43:00 Nichelle Allison [facility] LIPASE 2021-11-23 20:27:00 Nichelle Allison [facility] TROPONIN I 2021-11-23 20:27:00 Nichelle Allison [facility] COMP. METABOLIC PANEL 2021-11-23 20:27:00 [id number] CBC WITH DIFF 2021-11-23 20:27:00 Nichelle Allison [facility] POCT GLUCOSE (AUTOMATED) 2021-11-23 20:15:00 Doctor Diaz [facility] [place] Medical [place] SARS-COV-2 COVID-19 2021-05-24 14:23:12 Doctor Diaz [facility] VACCINE,0.3ML,IM (PFIZER) [place] Medica Branch SARS-COV-2 COVID-19 2021-05-03 14:59:29 Doctor Joe [facility] VACCINE,0.3ML,IM (PFIZER) [place] Medica l Branch EMERGENCY SERVICES 2021-04-16 05:01:00 Doctor Joe [facility] AGREEMENTS AND [place] Medical Branch AUTHORIZATIONS URINALYSIS 2021-03-17 03:09:00 [facility] XR CHEST 1 VW 2021-03-17 01:45:07 [facility] TROPONIN I 2021-03-17 01:35:00 [facility] COMP. METABOLIC PANEL 2021-03-17 01:35:00 Palmer [facility] ([id number]) Medical Branch CBC WITH DIFF 2021-03-17 01:35:00 [facility] N-TERMINAL PRO-BNP 2021-03-17 01:35:00 [facility] Medical Branch COVID-19 (ID NOW RAPID 2021-03-17 00:58:00 Brian Ray [facility] TESTING) Medical Branch CONSENT/REFUSAL FOR 2021-03-17 00:32:59 Doctor Diaz [facility] DIAGNOSIS AND TREATMENT [place] Medical [place] COVID-19 (ID NOW RAPID 2021-02-19 17:04:00 Anali Patel [facility] TESTING) Medical Branch CT ABDOMEN PELVIS W 2021-02-19 16:41:18 Anali Patel [facility] CONTRAST Medical Branch LIPASE 2021-02-19 15:58:00 Anali Patel [facility] COMP. METABOLIC PANEL 2021-02-19 15:58:00 Anali Patel [facility] ([id number]) Medical Branch CBC WITH DIFF 2021-02-19 15:58:00 Anali Patel [facility] URINALYSIS 2021-02-19 15:58:00 Anali Patel [facility] NOTICE OF PRIVACY 2021-02-19 15:30:46 Doctor Joe, [facility] PRACTICES [place] Medical Branch CONSENT/REFUSAL FOR 2021-02-19 15:30:30 Doctor Unassigned, Unive [facility] DIAGNOSIS AND TREATMENT [place] Medical Branch Encounters Start End Encounter Admission Attending Care Care Encounter Source Date/Time Date/Time Type Type Clinicians Facility Department ID 2021-05-[address] [facility] [id number] Univers 18:48:04 ity of [facility] 2021-05-[address] [facility] [id number] Univers 12:43:40 ity of [facility] 2022-04-13 2022-04-15 Inpatient X [facility] [id number] Univers 13:06:00 15:00:00 [facility] ity of [facility] 2022-04-13 2022-04-15 Hospital Sapna Vargas 1.2.84 0.114 [id number] Univers 13:06:00 15:00:00 Encounter Nithya Esteves 350. 1.13.10 ity of [facility] 4.2.7.2.686 [place] [id number] [facility] 098 Branch 2022-02-19 2022-02-19 Imm/Inj Vaccine, [facility] [place] [id number] Univers 10:20:00 10:30:00 Visit Shilpa Frederick [id number] ity of PEDIATRIC [id number] [place] [facility] [id number] [facility] 225 Branch 2022-02-19 2022-02-19 Outpatient R SHILPA [facility] [id number] Univers 10:20:00 10:20:00 ity of [facility] 2021-11-23 2021-11-23 Emergency X ESTEFANY [facility] ERT [id number] Univers 15:07:00 17:03:00 NICHELLE ity of [facility] 2021-11-23 2021-11-23 Emergency Sav Rondon [facility] 1.2.840. 114 [id number] Univers 15:07:00 17:03:00 Nichelle Allison 350.1.13. 10 ity of [place] 4.2.7.2.686 [facility] [id number] [facility] 084 Branch 2021-11-21 2021-11-[address] [facility] [id number] Univers 09:40:00 09:40:00 ity of [facility] 2021-05-24 2021-05-24 Outpatient R SHILPA [facility] [id number] Univers 09:30:00 09:30:00 ity of [facility] 2021-05-24 2021-05-24 Imm/Inj Vaccine, [facility] [place] 1.2.840.114 [id number] Univers 08:47:51 08:57:51 Visit Shilpa [place] [id number] [place] [facility] [id number] [facility] 225 [place] 2021-05-03 2021-05-03 Outpatient R SHILPA [facility] [id number] Univers 09:40:00 09:59:35 ity of [facility] 2021-05-03 2021-05-03 Imm/Inj Vaccine, [facility] [place] 1.2.840.114 [id number] Univers 09:17:43 09:59:35 Visit Shilpa [place] [id number] ity of [place]7.2.[place] [id number] [facility] 225 [place] 2021-04-16 2021-04-16 Orders Doctor THEODORE 1.2.840.114 [id number] Univers 00:00:00 00:00:00 Only Unassigned, HOSEA [id number] ity of [place] [facility] 4.2.7.2.686 Javier as [id number] [facility] 009 Branch 2021-03-17 2021-03-17 Telephone EWELINA Nava [id number] Univers 00:00:00 00:00:00 Aneatrice [place] [id number] ity of [facility] 4.2.7.2.686 Javier as [id number] [facility] 019 Branch 2021-03-16 2021-03-16 Emergency Palmer [facility] [id number] Univers 20:08:00 23:24:00 Fabrice Harrell 350.1.13.10 i ty of [employer] 4.2.7.2.686 [facility] [id number] [address] 2021-03-14 2021-03-14 Urgent Lydia Desouza [facility] 1.2.840.114 [id number] Univers 18:59:34 20:19:13 Care Unknown, Attending Health [id number] ity of [place] 4.2.7.2.686 Javier as Prem?Blea [id number] [address] Medical Office [facility] 2021-03-14 2021-03-14 Outpatient R UNKNOWN, [facility] [id number] Univers 19:00:00 19:00:00 ATTENDING ity [facility] 2021-02-19 2021-02-19 [facility] [id number] Univers 10:49:00 14:48:00 Anali Alexander Julio Cesar [id number] i ty of [employer] 4.2.7.2.686 [facility] [id number] [address] 2019-03-09 2019-03-09 [facility] 1.2.840.114 [id number] 00:00:00 00:00:00 Yehuda Ch Julio Cesar 350.1.13.10 [employer] 4.2.7.2.686 Professio [id number] [address] 2019-03-09 2019-03-09 [facility] 1.2.840.114 [id number] Univers 00:00:00 00:00:00 Yehuda Harrell [id number] ity [facility] 4.2.7.2.686 [facility] Professio [id number] [address] Results Test Description Test Time Test Comments Results Result Comments Source VITAMIN D, 25-OH 2022-04-15 20:14:03 Test Item Value Reference Range Interpretation Comme nts VIT D 25OH (test code = 19352-0) 22 ng/mL 25-80 L LYNDSAY (test code = LYNDSAY) Deficiency: <20 ng/mLInsufficiency: 20-24 ng/mLOptimal: 25-80 ng/mL Lab Interpretation (test code = 90960-7) [facility]normal [facility] (NA, K, CL, CO2, GLUCOSE, BUN, CREATININE, CA)2022-04-15 11:27:57 Test Item Value Reference Range Interpretation Comments NA (test code = 138 mmol/L 135-145 7707240769) K (test code = 3.9 mmol/L 3.5-5 4084097374) CL (test code = 106 mmol/L 98-108 9303159959) CO2 TOTAL (test code = 23 mmol/L 23-31 8224125477) AGAP (test code = 2-16 2335698381) BUN (test code = 10 mg/dL 7-23 9403500301) GLUCOSE (test code = 91 mg/dL 70-110 4967693705) CREATININE (test code = 0.65 mg/dL 0.5-1.04 7502757744) CALCIUM (test code = 8.1 mg/dL 8.6-10.6 L 5547991997) eGFR (test code = mL/min/1.73m2 7726414242) LYNDSAY (test code = LYNDSAY) Association of [...] tests). Lab Interpretation Abnormal (test code = 95067-4) [facility] Protocol - Transthoracic echo (TTE) 2022-04-14 22:07:33 Test Item Value Reference Range Interpretation Comments Height (test code = in 5648015678) Weight (test code = lbs 5711348566) Systolic BP (test code = mmHg 5532627255) Diastolic BP (test code mmHg = 8454911653) Heart Rate (test code = bpm 6331309681) BSA (test code = 1.94 m2 7171696082) TASV (test code = 15.5 cm/s 3657804915) LVIDD (test code = 6.00 cm 7999040527) Left Ventricular End 183.0 mL Diastolic Volume by Teichholz Method (test code = 7892865) IVS (test code = 1.09 cm 2737420891) Interventricular Septum 1.09 cm Diastolic Thickness by 2D (test code = 9718248) LVPWD (test code = 0.94 cm 3134730430) PW (test code = 0.94 cm 0.6-1.5 9244234246) EF(Teich) (test code = 40.30 % 4942313106) LVIDS (test code = 4.80 cm 9864461789) Left Ventricular End 109.2 mL Systolic Volume by Teichholz Method (test code = 2956387) FS (test code = 20 % [id number]) EF - 2D (test code = 40.30 % 22834478) LVOT diameter (test code 2.05 cm = 7391130271) LVOT area (test code = 3.30 cm2 1668910207) Ao root diam (test code 3.10 cm = 9765135923) Aortic root (test code = 3.1 cm 1627468093) Ao root annulus (test 3.1 cm code = 5605890276) LA size (test code = 4.2 cm 6427965726) LAV(MOD-sp4) (test code 64.90 mL = 3802288331) MV Peak A Dinesh (test code 115.7 cm/s = 6110837214) E wave decelartion time 0.15 s (test code = 7031312613) MV Peak E Dinesh (test code 106.2 cm/s = 6736412635) E/A ratio (test code = ratio 0670392022) LVOT stroke volume (test 48.30 cm3 code = 6247525285) LVOT peak dinesh (test code 78.4 cm/s = 3231684809) LVOT mn grad (test code mmHg = 7595711981) AV LVOT peak gradient mmHg (test code = 6167441817) LVOT peak VTI (test code 14.7 cm = 6259587218) LV V1 mean (test code = 51.40 cm/s 2158869477) Ao peak dinesh (test code = 154.7 cm/s 8011975767) AV area peak dinesh (test 1.7 cm2 code = 0336317011) Ao max PG (test code = 9.60 mm[Hg] 0040406194) AV peak gradient (test mmHg code = 2196497379) AV regurgitation 257.3 ms pressure 1/2 time (test code = 0483539240) AI dec slope (test code 498.10 cm/s2 = 3464329914) AI max dinesh (test code = 437.60 cm/s 6466375602) AI max PG (test code = 77.80 mm[Hg] 8221518981) Tapse (test code = 2.19 cm 9291220952) LA Volume Index (BP) 32.0 mL/m2 (test code = 1182733454) LA volume (BP) (test 62.1 mL code = 9951008234) LAV(MOD-sp2) (test code 52.70 mL = 3725540840) A4C EF (test code = 44.80 % 6885173385) EF(sp4-el) (test code = 45.20 % 4705221694) SV(MOD-sp4) (test code = 71.20 mL 4986128040) SV(sp4-el) (test code = 73.90 mL 4148892630) LV Diastolic Volume (BP) 146.3 mL (test code = 2385308339) A2C EF (test code = 52.00 % 3353927159) EF(MOD-bp) (test code = 46.70 % 4413784032) EF(sp2-el) (test code = 52.40 % 7413033703) LV Systolic Volume (BP) 77.9 mL (test code = 7241881738) SV(MOD-bp) (test code = 68.40 mL 0317124066) SV(MOD-sp2) (test code = 69.20 mL 0705032019) EF (test code = 3684552083) Left Ventricular Stroke 68.4 mL Volume by 2-D Biplane-MOD (test code = 2334773) Radiology Study observation (narrative) (test code = 89195-7) LYNDSAY (test code = LYNDSAY) ?Left?Ventricle: Left ventricle size is normal. Normal wall thickness. Normal wall motion. Mildly reduced systolic function with a visually estimated EF of 45 - 50%. EF by 2D Downs biplane is 47%. There is grade 1 diastolic dysfunction. Elevated left ventricular filling pressure. ?Right?Ventricle: Right ventricle size is normal. Normal systolic function. ?Left?Atrium: Saline contrast shows no shunt. ?Tricuspid?Valve: Insufficient tricuspid regurgitation jet to estimate RVSP.Trace transvalvular regurgitation. RA pressure is 0-5 mmHg. ?Pericardium: No pericardial effusion. Left VentricleLeft ventricle size is normal. Normal wall thickness. Normal wall motion. Mildly reduced systolic function with a visually estimated EF of 45 - 50%. EF by 2D Downs biplane is 47%. There is grade 1 diastolic dysfunction. Elevated left ventricular filling pressure.Right VentricleRight ventricle size is normal. Normal systolic function.Left AtriumLeft atrium size is normal. Saline contrast shows no shunt.Right AtriumRight atrium size is normal.IVC/SVCIVC diameter is less than or equal to 21 mm and decreases greater than 50% during inspiration; therefore the estimated right atrial pressure is normal (~0-5 mmHg).Mitral ValveMitral valve structure is normal. Trace transvalvular regurgitation.Tricusp id ValveTricuspid valve structure is normal. Insufficient tricuspid regurgitation jet to estimate RVSP.Trace transvalvular regurgitation. RA pressure is 0-5 mmHg.Aortic ValveAortic valve structure is normal. Trace transvalvular regurgitation.Pulmoni c ValveNot well visualized. Valve structure is grossly normal.Ascending AortaNormal sized ascending aorta and aortic root.PericardiumNo pericardial effusion.Study DetailsStudy quality was good. A complete echocardiogram was performed using 2D, color flow Doppler and spectral Doppler. 5 mL of Lumason ultrasound enhancing agent used and saline contrast was performed. [facility]KEPPRA (LEVETIRACETAM)2022-04-14 16:48:36 Test Item Value Reference Range Interpretation Comments KEPPRA (test code = 12-46 L 8046186852) LYNDSAY (test code = LYNDSAY) Therapeutic range: 12-46 ?g/mL ? ?Toxic: Not well established.Test developed and characteristics determined by [facility] Laboratory Services. Lab Interpretation Abnormal (test code = 37320-8) [facility] Metabolic Panel (Na, K, Cl, CO2, Glucose, BUN, Creatinine, Ca)2022-04-14 10:50:11 Test Item Value Reference Range Interpretation Comments NA (test code = 136 mmol/L 135-145 1490459835) K (test code = 3.8 mmol/L 3.5-5 3891760933) CL (test code = 105 mmol/L 98-108 7757167576) CO2 TOTAL (test code = 25 mmol/L 23-31 1188008228) AGAP (test code = 2-16 3614270473) BUN (test code = 9 mg/dL 7-23 6305458648) GLUCOSE (test code = 101 mg/dL 70-110 0196656063) CREATININE (test code = 0.66 mg/dL 0.5-1.04 6302720477) CALCIUM (test code = 8.1 mg/dL 8.6-10.6 L 5940522812) eGFR (test code = mL/min/1.73m2 8428969521) LYNDSAY (test code = LYNDSAY) Association of [...] tests). Lab Interpretation Abnormal (test code = 32779-5) [facility] CenterMagensium, [id number] 10:50:11 Test Item Value Reference Range Interpretation Comments MAGNESIUM (test code = 4060335817) 1.9 mg/dL 1.7-2.4 Lab Interpretation (test code = Normal 57647-2) [facility] CenterThyroid Stimulating [id number] 22:21:44 Test Item Value Reference Range Interpretation Comments TSH (test code = See_Comment Biotin has been 8183131580) reported to cau se a negative bias, interpret resul ts relative to pat radha's use of biotin. [Automated mess age] The system [employer] generated this result transmitted ref erence range: 0.45 - 4 .70 mIU/L. The refe rence range was not u sed to interpret this result as normal/abnor mal. Lab Interpretation (test Normal code = 95671-6) [facility] CenterGLYCOSYLATED HEMOGLOBIN (A1C)2022-04-13 21:53:43 Test Item Value Reference Range Interpretation Comments HGB A1C (test code = 5.8 % 4-5.7 H 4548-4) LYNDSAY (test code = LYNDSAY) Reference RangesNormal: <5.7%Prediabetes: 5.7 - 6.4%Diabetes: > 6.5% Lab Interpretation (test Abnormal code = 01951-9) [facility] (60530)(TOTAL CHOLESTEROL, TRIGLYCERIDES, HDL)2022-04-13 21:34:53 Test Item Value Reference Range Interpretation Comments CHOL (test code = 201 mg/dL 120-200 H 0852513143) HDL (test code = 56 mg/dL See_Comment [Automated message] 6163758575) The system [employer] generated this result transmit sherice reference range : >=50. The refer ence range was not u sed to interpret th is result as normal/abnormal . HDLC RATIO (test code = See_Comment [Au tomated message] 1506626827) The system [employer] generated this result transmit sherice reference range : <=4.5. The refe rence range was not u sed to interpret th is result as normal/abnormal . TRIG (test code = 355 mg/dL 30-170 H 4690761386) LDL CHOL (test code = 74 mg/dL See_Comment [Auto mated message] 51092-9) The system [employer] generated this result transmit sherice reference range : <=160. The refe rence range was not u sed to interpret th is result as normal/abnormal . VLDL (test code = 71 mg/dL 5-60 H 6503379576) Lab Interpretation (test Abnormal code = 40285-4) [facility] CenterTroponin I - Code Gayftm1790-08-28 18:46:27 Test Item Value Reference Interpretation Comments Range TROPONIN I (test 0.013 ng/mL See_Comment [Automated code = 4042042773) message] The system which generated this result [...] biotin. Lab Interpretation Normal (test code = 12033-6) [facility] (NA, K, CL, CO2, Glucose, BUN, Creatinine, CA) - Code Rwttyr1060-22-23 18:35:07 Test Item Value Reference Range Interpretation Comments NA (test code = 136 mmol/L 135-145 7797794659) K (test code = 4.3 mmol/L 3.5-5 8044824565) CL (test code = 105 mmol/L 98-108 9632147901) CO2 TOTAL (test code = 27 mmol/L 23-31 1601481085) AGAP (test code = 2-16 3353509624) BUN (test code = 8 mg/dL 7-23 5342375187) GLUCOSE (test code = 130 mg/dL 70-110 H 2772759164) CREATININE (test code = 0.75 mg/dL 0.5-1.04 8925365311) CALCIUM (test code = 8.5 mg/dL 8.6-10.6 L 9922831123) eGFR (test code = mL/min/1.73m2 4308120354) LYNDSAY (test code = LYNDSAY) Association of [...] tests). Lab Interpretation Abnormal (test code = 98259-8) [facility] CenteraPTT - Code Nkhhin5013-30-95 18:32:46 Test Item Value Reference Range Interpretation Comments APTT Patient (test See_Comment [Automat ed code = 3173-2) message] The system which generated this result transmitted reference range : 23 - 38 Seconds . The reference range was not used to interpr et this result as normal/abnormal . LYNDSAY (test code = LYNDSAY) The [facility] patient population mean normal value for aPTT is 30 seconds. Lab Interpretation Normal (test code = 55660-4) [facility] CenterProthrombin Time / INR - Code [id number] 18:30:45 Test Item Value Reference Range Interpretation Comments PROTIME PATIENT (test See_Comment [Auto mated message] code = 5964-2) The system [employer] generated this result transmitted ref erence range: 12.0 - 1 4.7 Seconds. The re ference range was not u sed to interpret this result as normal/abnor mal. INR (test code = 6301-6) Nor mal INR <1.1; Warfarin Therap eutic range 2.0 to 3. 0 or 2.5 to 3.5, dep ending upon the indica tions. Lab Interpretation (test Normal code = 58048-1) [facility] CenterCBC without Diff - Code [id number] 18:23:07 Test Item Value Reference Range Interpretation Comments WBC (test code = 6690-2) See_Comment [A utomated message] The system [employer] h generated this result transmit sherice reference range : 4.30 - 11.10 10*3/?L. The reference range was not used to interpret this result as normal/abnormal . RBC (test code = 789-8) See_Comment [Au tomated message] The system [employer] h generated this result transmit sheirce reference range : 3.93 - 5.25 10* 6/?L. The reference r zoe was not used to interpret this result as normal/abnormal . HGB (test code = 718-7) 12.9 g/dL 11.6-15 HCT (test code = 4544-3) 39.4 % 35.7-45.2 MCH (test code = 785-6) 27.7 pg 25.9-32.8 MCV (test code = 787-2) 84.5 fL 80.6-95.5 MCHC (test code = 786-4) 32.7 g/dL 31.6-35.1 PLT (test code = 777-3) See_Comment H [Au tomated message] The system [facility] [email or web address] generated this result transmit sherice reference range : 166 - 358 10*3/?L. The reference range was not used to interpret this result as normal/abnormal . MPV (test code = 8.1 fL 9.5-12.9 L 16235-9) RDW-CV (test code = 16.1 % 12-15.5 H 788-0) RDW-SD (test code = 49.2 fL 39-49.9 82410-4) NRBC x10^3 (test code = See_Comment [Au tomated message] 3556104905) The system [facility] [email or web address] generated this result transmit sherice reference range : 10*3/?L. The reference range was not used to interpret this result as normal/abnormal . NRBC/100 WBC (test code See_Comment [Au tomated message] = 9030157114) The system [facility] generated this result transmit sherice reference range : 0.0 - 10.0 /100 WBC s. The reference r zoe was not used to interpret this result as normal/abnormal . IPF % (test code = 6560801250) Lab Interpretation (test Abnormal code = 70015-1) [facility] CenterTRM[facility]ERGENCYNIN [id number] 21:06:40 Test Item Value Reference Interpretation Comments Range TROPONIN I (test 0.005 ng/mL See_Comment [Automated code = 6233883666) message] The system which generated this result [...] biotin. Lab Interpretation Normal (test code = 12167-9) [facility]. METABOLIC PANEL (86189)2021-11-23 20:55:42 Test Item Value Reference Range Interpretation Comments NA (test code = 137 mmol/L 135-145 1568933913) K (test code = 4.3 mmol/L 3.5-5.0 9896283234) CL (test code = 104 mmol/L 98-108 8216997960) CO2 TOTAL (test code = 22 mmol/L 23-31 L 0026924291) AGAP (test code = 2-16 3858405182) BUN (test code = 15 mg/dL 7-23 8111868263) GLUCOSE (test code = 114 mg/dL 70-110 H 3266462254) CREATININE (test code = 0.68 mg/dL 0.50-1.04 4397142652) TOTAL BILI (test code = 0.5 mg/dL 0.1-1.2 2530369323) CALCIUM (test code = 9.1 mg/dL 8.6-10.6 8287727271) T PROTEIN (test code = 7.3 g/dL 6.3-8.2 7190897269) ALBUMIN (test code = 4.4 g/dL 3.5-5.0 7768850681) ALK PHOS (test code = 243 U/L 34-122 H 6166894894) ALTv (test code = 24 U/L 5-35 1742-6) AST(SGOT) (test code = 30 U/L 13-40 6278022099) eGFR (test code = mL/min/1.73m2 0464506253) LYNDSAY (test code = LYNDSAY) Association of [...] tests). Lab Interpretation Abnormal (test code = 77484-7) [facility] CenterLIPASE2022-05-07 20:55:22 Test Item Value Reference Range Interpretation Comments LIPASE (test code = 8635883439) 96 U/L 0-220 Lab Interpretation (test code = Normal 42188-7) [facility] CenterPOCT [id number] 20:46:00 Test Item Value Reference Range Interpretation Comments POCT PREG (test code = 1605) negative On board controls acceptable with present C Line (test code = 3574) POCT PREG LOT # (test code = 3575) [id number] POCT PREG TEST DATE (test 04/18/2023 code = 3576) Lab Interpretation (test code = Normal 15178-2) [facility] CenterCB WITH [id number] 20:40:38 Test Item Value Reference Range Interpretation Comments WBC (test code = See_Comment [Automated 4190-2) message] The sy stem which generated this [...] (test code = 53.7 fL 39.0-49.9 H 52160-5) RDW-CV (test code = 17.2 % 12.0-15.5 H 788-0) PLT (test code = See_Comment H [Automated 777-3) message] The sy stem which generated this result transmitted reference range : 166 - 358 10*3/ ?L. The reference r zoe was not used to interpret this result as normal/abnormal . MPV (test code = 8.5 fL 9.5-12.9 L 44979-8) NRBC/100 WBC (test See_Comment [Automat ed code = 6297364836) message] The system which generated this result transmitted reference range : 0.0 - 10.0 /100 WBCs. The refer ence range was not u sed to interpret th is result as normal/abnormal . NRBC x10^3 (test code <0.01 See_Comment [Auto mated = 4078878700) message] The s ystem which generated this result transmitted reference range : 10*3/?L. The reference range was not used to interpret this result as normal/abnormal . GRAN MAT (NEUT) % 53.7 % (test code = 770-8) IMM GRAN % (test code 0.90 % = 1743451332) LYMPH % (test code = 32.6 % 736-9) MONO % (test code = 10.1 % 5905-5) EOS % (test code = 1.5 % 713-8) BASO % (test code = 1.2 % 706-2) GRAN MAT x10^3(ANC) 4.98 10*3/uL 1.88-7.09 (test code = 1987187423) IMM GRAN x10^3 (test 0.08 10*3/uL 0.00-0.06 H code = 8730522990) LYMPH x10^3 (test code 3.02 10*3/uL 1.32-3.29 = 731-0) MONO x10^3 (test code 0.94 10*3/uL 0.33-0.92 H = 742-7) EOS x10^3 (test code = 0.14 10*3/uL 0.03-0.39 711-2) BASO x10^3 (test code 0.11 10*3/uL 0.01-0.07 H = 704-7) Lab Interpretation Abnormal (test code = 15619-3) [facility] CenterPOND GLUCOSE (AUTOMATED)2021-11-23 20:17:33 Test Item Value Reference Range Interpretation Comments POCT GLU (test code = 111 mg/dL 70-110 H Notifi ed Provider 8873479384) Lab Interpretation (test Abnormal code = 96405-4) [facility] CenterURINALYSIS2021-08-29 03:22:48 Test Item Value Reference Range Interpretation Comments APPEARANCE (test code = Hazy Clear A 5290848949) COLOR (test code = Yellow Yellow 2586638681) PH (test code = 4.8-8.0 3468340129) SP GRAVITY (test code = 1.003-1.030 3254610252) GLU U QUAL (test code = Normal Normal 4563150220) BLOOD (test code = Negative Negative Interfere nce from 4176583392) ascorbic acid m ay cause false neg ative results. KETONES (test code = 5 mg/dL Negative A 8326061720) PROTEIN (test code = Negative Negative 2887-8) UROBILIN (test code = 4.0 mg/dL Normal A 7881834549) BILIRUBIN (test code = Negative Negative 3563636980) NITRITE (test code = Negative Negative 0670605153) LEUK GRUPO (test code = Negative Negative 9823476554) RBC/HPF (test code = See_Comment [Autom ated message] 3237715029) The system [employer] generated this result transmitted ref erence range: 0 - 3 HP F. The reference range was not used to int erpret this result as normal/abnormal . WBC/HPF (test code = <1 See_Comment [Autom ated message] 8423554403) The system [employer] generated this result transmitted ref erence range: 0 - 5 HP F. The reference range was not used to int erpret this result as normal/abnormal . BACTERIA (test code = Few Negative A 8364709990) SQ EPITH (test code = HPF 8891603479) Lab Interpretation Abnormal (test code = 33604-5) [facility] CenterURINALYSIS2021-08-29 03:22:48 Test Item Value Reference Range Interpretation Comments APPEARANCE (test code = Hazy Clear A 3190631083) COLOR (test code = Yellow Yellow 8247944807) PH (test code = 4.8-8.0 4243736591) SP GRAVITY (test code = 1.003-1.030 4257074090) GLU U QUAL (test code = Normal Normal 8675449686) BLOOD (test code = Negative Negative 4282124552) KETONES (test code = 5 mg/dL Negative A 7058331616) PROTEIN (test code = Negative Negative 2887-8) UROBILIN (test code = 4.0 mg/dL Normal A 5652939806) BILIRUBIN (test code = Negative Negative 9896217175) NITRITE (test code = Negative Negative 3387924337) LEUK GRUPO (test code = Negative Negative 8308109476) RBC/HPF (test code = See_Comment [Autom ated message] 2810942542) The system [employer] generated this result transmit sherice reference range : 0 - 3 HPF. The refe rence range was not u sed to interpret th is result as normal/abnormal . WBC/HPF (test code = <1 See_Comment [Autom ated message] 1285624554) The system [employer] generated this result transmit sherice reference range : 0 - 5 HPF. The refe rence range was not u sed to interpret th is result as normal/abnormal . BACTERIA (test code = Few Negative A 3320240779) SQ EPITH (test code = HPF 0977348970) Lab Interpretation (test Abnormal code = 73309-4) [facility] [id number] 02:45:00 Test Item Value Reference Interpretation Comments Range TROPONIN I (test 0.002 ng/mL See_Comment [Automated code = 4653436992) message] The system which generated this result [...] biotin. Lab Interpretation Normal (test code = 35197-3) [facility] [id number] 02:45:00 Test Item Value Reference Range Interpretation Comments TROPONIN I (test code = 0.002 ng/mL See_Comment [Au tomated 2681651665) message] The sy stem which generated this result transmitted reference range : <=0.034. The reference range was not used to interpret this result as normal/abnormal . LYNDSAY (test code = LYNDSAY) Lab Interpretation Normal (test code = 34687-4) [facility] CenterN-TERMINAL [id number] 02:41:57 Test Item Value Reference Range Interpretation Comments NT-proBNP (test code 169 pg/mL See_Comment H [Autom ated = 5019979132) message] The system which generated this result transmitted reference range : <=125. The reference range was not used to interpret this result as normal/abnormal . LYNDSAY (test code = LYNDSAY) Biotin has been reported to cause a negative bias, interpret results relative to patient's use of biotin. Lab Interpretation Abnormal (test code = 91354-8) [facility] CenterN-TERMINAL [id number] 02:41:57 Test Item Value Reference Range Interpretation Comments NT-proBNP (test code = 169 pg/mL See_Comment H [Aut omated message] 8933977999) The system [employer] generated this result transmit sherice reference range : <=125. The refe rence range was not u sed to interpret th is result as normal/abnormal . LYNDSAY (test code = LYNDSAY) Lab Interpretation (test Abnormal code = 91513-1) [facility]. METABOLIC PANEL (80549)2021-03-17 02:09:13 Test Item Value Reference Range Interpretation Comments NA (test code = 137 mmol/L 135-145 3133559971) K (test code = 4.2 mmol/L 3.5-5.0 8334429600) CL (test code = 102 mmol/L 98-108 4879104596) CO2 TOTAL (test code = 25 mmol/L 23-31 5822870711) AGAP (test code = 2-16 5812060067) BUN (test code = 18 mg/dL 7-23 0074225603) GLUCOSE (test code = 144 mg/dL 70-110 H 0462720480) CREATININE (test code = 0.77 mg/dL 0.50-1.04 6505842590) TOTAL BILI (test code = 0.4 mg/dL 0.1-1.8 9613033352) CALCIUM (test code = 8.9 mg/dL 8.6-10.6 8354723545) T PROTEIN (test code = 6.8 g/dL 6.3-8.2 3958577072) ALBUMIN (test code = 3.9 g/dL 3.5-5.0 0926427438) ALK PHOS (test code = 84 U/L 34-122 7989332408) ALTv (test code = 13 U/L 5-35 1742-6) AST(SGOT) (test code = 17 U/L 13-40 5538428684) eGFR (test code = mL/min/1.73m2 0278376827) LYNDSAY (test code = LYNDSAY) Association of [...] tests). Lab Interpretation Abnormal (test code = 10414-7) [facility]. METABOLIC PANEL (62450)2021-03-17 02:09:13 Test Item Value Reference Range Interpretation Comments NA (test code = 3796433704) 137 mmol/L 135-145 K (test code = 9478980914) 4.2 mmol/L 3.5-5.0 CL (test code = 7855528127) 102 mmol/L 98-108 CO2 TOTAL (test code = 7499471449) 25 mmol/L 23-31 AGAP (test code = 3513888895) 2-16 BUN (test code = 4779603701) 18 mg/dL 7-23 GLUCOSE (test code = 3049437391) 144 mg/dL 70-110 H CREATININE (test code = 0.77 mg/dL 0.50-1.04 6346299930) TOTAL BILI (test code = 0.4 mg/dL 0.1-1.9 4511956995) CALCIUM (test code = 6587719947) 8.9 mg/dL 8.6-10.6 T PROTEIN (test code = 5592370560) 6.8 g/dL 6.3-8.2 ALBUMIN (test code = 7705443734) 3.9 g/dL 3.5-5.0 ALK PHOS (test code = 6214184364) 84 U/L 34-122 ALTv (test code = 1742-6) 13 U/L 5-35 AST(SGOT) (test code = 2360363325) 17 U/L 13-40 eGFR (test code = 7982200400) mL/min/1.73m2 LYNDSAY (test code = LYNDSAY) Lab Interpretation (test code = Abnormal 42845-4) [facility] WITH [id number] 01:56:33 Test Item Value Reference Range Interpretation [...] (test code = 55.5 fL 39.0-49.9 H 67755-2) RDW-CV (test code = 18.9 % 12.0-15.5 H 788-0) PLT (test code = See_Comment H [Automated 777-3) message] The sy stem which generated this result transmitted reference range : 166 - 358 10*3/ ?L. The reference r zoe was not used to interpret this result as normal/abnormal . MPV (test code = 8.2 fL 9.5-12.9 L 88380-7) NRBC/100 WBC (test See_Comment [Automat ed code = 3731144666) message] The system which generated this result transmitted reference range : 0.0 - 10.0 /100 WBCs. The refer ence range was not u sed to interpret th is result as normal/abnormal . NRBC x10^3 (test code <0.01 See_Comment [Auto mated = 8486999198) message] The s ystem which generated this result transmitted reference range : 10*3/?L. The reference range was not used to interpret this result as normal/abnormal . GRAN MAT (NEUT) % 61.7 % (test code = 770-8) IMM GRAN % (test code 0.80 % = 0297335585) LYMPH % (test code = 28.5 % 736-9) MONO % (test code = 6.3 % 5905-5) EOS % (test code = 1.8 % 713-8) BASO % (test code = 0.9 % 706-2) GRAN MAT x10^3(ANC) 7.31 10*3/uL 1.88-7.09 H (test code = 4447437936) IMM GRAN x10^3 (test 0.09 10*3/uL 0.00-0.06 H code = 2317954238) LYMPH x10^3 (test code 3.38 10*3/uL 1.32-3.29 H = 731-0) MONO x10^3 (test code 0.75 10*3/uL 0.33-0.92 = 742-7) EOS x10^3 (test code = 0.21 10*3/uL 0.03-0.39 711-2) BASO x10^3 (test code 0.11 10*3/uL 0.01-0.07 H = 704-7) Lab Interpretation Abnormal (test code = 47638-2) [facility] WITH [id number] 01:56:33 Test Item Value Reference Range Interpretation [...] (test code = 55.5 fL 39.0-49.9 H 14660-6) RDW-CV (test code = 18.9 % 12.0-15.5 H 788-0) PLT (test code = See_Comment H [Automated 777-3) message] The sy stem which generated this result transmitted reference range : 166 - 358 10*3/ ?L. The reference r zoe was not used to interpret this result as normal/abnormal . MPV (test code = 8.2 fL 9.5-12.9 L 40043-9) NRBC/100 WBC (test See_Comment [Automat ed code = 4536674410) message] The system which generated this result transmitted reference range : 0.0 - 10.0 /100 WBCs. The refer ence range was not u sed to interpret th is result as normal/abnormal . NRBC x10^3 (test code <0.01 See_Comment [Auto mated = 1227432441) message] The s ystem which generated this result transmitted reference range : 10*3/?L. The reference range was not used to interpret this result as normal/abnormal . GRAN MAT (NEUT) % 61.7 % (test code = 770-8) IMM GRAN % (test code 0.80 % = 4176362512) LYMPH % (test code = 28.5 % 736-9) MONO % (test code = 6.3 % 5905-5) EOS % (test code = 1.8 % 713-8) BASO % (test code = 0.9 % 706-2) GRAN MAT x10^3(ANC) 7.31 10*3/uL 1.88-7.09 H (test code = 3036859914) IMM GRAN x10^3 (test 0.09 10*3/uL 0.00-0.06 H code = 5542008846) LYMPH x10^3 (test code 3.38 10*3/uL 1.32-3.29 H = 731-0) MONO x10^3 (test code 0.75 10*3/uL 0.33-0.92 = 742-7) EOS x10^3 (test code = 0.21 10*3/uL 0.03-0.39 711-2) BASO x10^3 (test code 0.11 10*3/uL 0.01-0.07 H = 704-7) Lab Interpretation Abnormal (test code = 20581-1) [facility]-19 (ID NOW RAPID TESTING)2021-03-17 01:38:12 Test Item Value Reference Range Interpretation Comments SARS-CoV-2 Rapid ID NOW Not Detected Not Detected (test code = 51757-5) LYNDSAY (test code = LYNDSAY) ID NOW COVID-19 Assay is an isothermal nucleic acid amplification test intended for the qualitative detection of nucleic acid from SARS-CoV-2 viral RNA in nasopharyngeal ([employer] CONSULTANT) specimens. It is used under Emergency [...] indicated. Lab Interpretation Normal (test code = 85092-2) [facility]-19 (ID NOW RAPID TESTING)2021-03-17 01:38:12 Test Item Value Reference Range Interpretation Comments SARS-CoV-2 Rapid ID NOW (test Not Detected Not Detected code = 56122-0) LYNDSAY (test code = LYNDSAY) Lab Interpretation (test code = Normal 93003-2) [facility]2021-02-19 17:42:45 Test Item Value Reference Range Interpretation Comments SARS-CoV-2 Rapid ID NOW Not Detected Not Detected (test code = 70844-4) LYNDSAY (test code = LYNDSAY) ID NOW COVID-19 Assay is an isothermal nucleic acid amplification test intended for the qualitative detection of nucleic acid from SARS-CoV-2 viral RNA in nasopharyngeal (STRATE[employer] SOLUTIONS CONSULTANT) specimens. It is used under Emergency [...] indicated. Lab Interpretation Normal (test code = 78152-1) [facility] W [id number] 17:24:55Thickening of the gastric antrum and duodenal bulb could be fromunderdistention, the differential would include sequela of peptic ulcerdisease. No findings of ulcer perforation. Otherwise, no acute intra- abdominal or pelvic abnormality. Stable thickening and nodularity of the left adrenal gland. RL: [id number] Patient name: EUSEBIA GUY: 1970 51 years EXAMINATION: CT ABDOMEN PELVIS [...] nodularity of the left adrenal gland.RL: 8722 [facility] 17:03:40 Test Item Value Reference Range Interpretation Comments APPEARANCE (test code = Hazy Clear A 7270216924) COLOR (test code = Mabel Yellow A 0702342969) PH (test code = 4.8-8.0 1573957143) SP GRAVITY (test code = 1.003-1.030 H 9324320471) GLU U QUAL (test code = Normal Normal 5566834143) BLOOD (test code = Negative Negative 3133373944) KETONES (test code = 5 mg/dL Negative A 0805437347) PROTEIN (test code = 30 mg/dL Negative A 2887-8) UROBILIN (test code = 4.0 mg/dL Normal A 0839220409) BILIRUBIN (test code = 4 mg/dL Negative A 9530604643) NITRITE (test code = Negative Negative 0156909835) LEUK GRUPO (test code = Negative Negative 9010442849) RBC/HPF (test code = See_Comment H [Autom ated message] 9082575794) The system [employer] generated this result transmit sheirce reference range : 0 - 3 HPF. The refe rence range was not u sed to interpret th is result as normal/abnormal . WBC/HPF (test code = See_Comment H [Autom ated message] 5220841540) The system [employer] generated this result transmit sherice reference range : 0 - 5 HPF. The refe rence range was not u sed to interpret th is result as normal/abnormal . BACTERIA (test code = Few Negative A 9239430591) MUCOUS (test code = Moderate Negative LPF A 6133762096) SQ EPITH (test code = HPF 7894027848) CA OXALATE (test code = See_Comment H [Au tomated message] 0313553402) The system [employer] generated this result transmit sherice reference range : <=1 HPF. The refere nce range was not u sed to interpret th is result as normal/abnormal . Ictotest (test code = Negative 1419785145) Lab Interpretation (test Abnormal code = 28122-5) [facility] Metabolic [id number] 16:34:55 Test Item Value Reference Range Interpretation Comments NA (test code = 139 mmol/L 135-145 4875267054) K (test code = 4.3 mmol/L 3.5-5.0 4111432703) CL (test code = 105 mmol/L 98-108 9078244785) CO2 TOTAL (test code 26 mmol/L 23-31 = 0010911810) AGAP (test code = 2-16 9200217999) BUN (test code = 11 mg/dL 7-23 0467108741) GLUCOSE (test code = 95 mg/dL 70-110 4949581883) CREATININE (test code 0.70 mg/dL 0.50-1.04 = 7395630599) TOTAL BILI (test code 0.6 mg/dL 0.1-1.1 = 6429449104) CALCIUM (test code = 8.9 mg/dL 8.6-10.6 7355278225) T PROTEIN (test code 7.7 g/dL 6.3-8.2 = 9629314396) ALBUMIN (test code = 4.1 g/dL 3.5-5.0 5813096895) ALK PHOS (test code = 79 U/L 34-122 2755597346) ALTv (test code = 10 U/L 5-35 1742-6) AST(SGOT) (test code 22 U/L 13-40 = 2283005196) eGFR (test code = mL/min/1.73m2 7359989757) LYNDSAY (test code = LYNDSAY) Association of [...] or urine or abnormalities in imaging tests). [facility] Center[facility], [id number] 16:34:14 Test Item Value Reference Range Interpretation Comments LIPASE (test code = 5163328587) 45 U/L 0-220 Lab Interpretation (test code = Normal 89309-0) [facility] CenterCB with [id number] 16:21:12 Test Item Value Reference Range Interpretation Comments WBC (test code = See_Comment [Automated 2260-2) message] The sy stem which generated this result transmitted reference range : 4.30 - 11.10 10*3/?L. The reference range was not used to interpret this result as normal/abnormal . RBC (test code = See_Comment [Automated 278-2) message] The sy stem which generated this [...] (test code = 54.4 fL 39.0-49.9 H 66744-1) RDW-CV (test code = 18.3 % 12.0-15.5 H 788-0) PLT (test code = See_Comment H [Automated 777-3) message] The sy stem which generated this result transmitted reference range : 166 - 358 10*3/ ?L. The reference r zoe was not used to interpret this result as normal/abnormal . MPV (test code = 8.5 fL 9.5-12.9 L 10083-1) NRBC/100 WBC (test See_Comment [Automat ed code = 3460903655) message] The system which generated this result transmitted reference range : 0.0 - 10.0 /100 WBCs. The refer ence range was not u sed to interpret th is result as normal/abnormal . NRBC x10^3 (test code <0.01 See_Comment [Auto mated = 1479233041) message] The s ystem which generated this result transmitted reference range : 10*3/?L. The reference range was not used to interpret this result as normal/abnormal . GRAN MAT (NEUT) % 78.3 % (test code = 770-8) IMM GRAN % (test code 0.40 % = 7833032939) LYMPH % (test code = 15.4 % 736-9) MONO % (test code = 4.8 % 5905-5) EOS % (test code = 0.1 % 713-8) BASO % (test code = 1.0 % 706-2) GRAN MAT x10^3(ANC) 7.15 10*3/uL 1.88-7.09 H (test code = 6647676823) IMM GRAN x10^3 (test 0.04 10*3/uL 0.00-0.06 code = 5712049477) LYMPH x10^3 (test code 1.41 10*3/uL 1.32-3.29 = 731-0) MONO x10^3 (test code 0.44 10*3/uL 0.33-0.92 = 742-7) EOS x10^3 (test code = <0.03 0.03-0.39 L 711-2) BASO x10^3 (test code 0.09 10*3/uL 0.01-0.07 H = 704-7) Lab Interpretation Abnormal (test code = 89373-2) [facility]"
[2022-05-04] MEDS ORDERED: ONDANSETRON 4 MG/2 ML VIAL ONE (15:21)
[2022-05-04] MEDS ORDERED: MORPHINE 4 MG/ML SYR ONE ×2 (15:21→19:02)
[2022-05-04] MEDS ORDERED: NA CHLORIDE 0.9% 1,000 ML ONE (15:21)
--- NOTE | 2022-05-04 15:28 | RAD REPORT ---
EXAM DESCRIPTION: RAD - Chest Single View - 05/04/2022 3:17 pm CLINICAL HISTORY: COUGH COMPARISON: Chest Single View dated 03/09/2022; Chest Single View dated 03/04/2022; Chest Single View dated 12/27/2021; Chest Single View dated 12/13/2021 FINDINGS: Lines: None. Lungs: No evidence of edema or pneumonia. Pleural: No significant pleural effusions or pneumothorax. Cardiac: The heart size is within normal limits. Mediastinum: Within normal limits. Bones: No acute fractures. ACDF in the cervical spine. Other: None IMPRESSION: No acute cardiopulmonary disease.
[2022-05-04 15:56] LABS: Absolute Lymphocytes (CBC) 2.2 K/uL (0.7-4.9); Hematocrit 39.2 % (36.0-45.0); Lymphocytes % 28.2 % (15.3-44.8); MCV 84.5 fL (80-100); MPV 6.2 fL (7.6-11.3); RBC Red Blood Cell Count 4.64 M/uL (3.86-4.86)
[2022-05-04 15:57] LABS: Protime INR 0.97
[2022-05-04 16:12] LABS: ALT/SGPT 23 U/L (12-78); AST/SGOT 13 U/L (15-37); Albumin 3.4 g/dL (3.4-5.0); Alkaline Phosphatase 73 U/L (45-117); BUN Blood Urea Nitrogen 13 mg/dL (7-18); Bicarbonate 24 mmol/L (21-32); Bilirubin Total 0.2 mg/dL (0.2-1.0); Glomerular Filtration Rate 85 ml/min (=/>90); Glucose Level 94 mg/dL (74-106); Lipase 86 U/L (73-393); Magnesium 2.2 mg/dL (1.8-2.4); NT PRO-BNP 1411 pg/mL (<125); Sodium Level 138 mmol/L (136-145); Troponin High Sensitivity 16.8 pg/mL (<58.9)
[2022-05-04 16:15] LABS: Bilirubin Direct < 0.1 mg/dL (0-0.2)
--- NOTE | 2022-05-04 16:46 | RAD REPORT ---
EXAM DESCRIPTION: CT - Head C Spine Cap Wo Con - 05/04/2022 4:23 pm CLINICAL HISTORY: Trauma, head and neck injury. Chest, abdomen and pelvis pain. fall COMPARISON: Head C Spine Cap W Con dated 01/30/2021; Head Brain Wo Cont dated 12/27/2021 TECHNIQUE: CT head without contrast. CT cervical spine without contrast with coronal and sagittal reformatted images. CT chest, abdomen and pelvis with coronal and sagittal reformatted images of the spine. All CT scans are performed using dose optimization technique as appropriate and may include automated exposure control or mA/KV adjustment according to patient size. FINDINGS: CT HEAD WITHOUT CONTRAST: No intracranial hemorrhage, hydrocephalus or extra-axial fluid collection. No acute large vascular te rritory infarct. Small lesion along the right aspect of the the intra cerebral falx as seen on image 23, series 201. This measures 6 millimeters. The paranasal sinuses and mastoids are clear. The calvarium is intact. CT CERVICAL SPINE WITHOUT CONTRAST: No fracture or subluxation. The prevertebral soft tissues are normal in thickness.C4 through C7 ACDF. Adjacent level degenerative changes are present at C3-4 and C7-T1. CT CHEST, ABDOMEN, PELVIS: Thorax: Chest Wall: No abnormal mass Lungs: No acute abnormality. Pleura: No effusions or pneumothorax. Rebeca/Mediastinum: No lymphadenopathy. Aorta/Pulmonary Arteries: Unremarkable Heart: Normal size. Abdomen/Pelvis: Liver: No acute abnormality or suspicious lesions. Biliary: No biliary ductal dilatation. Cholecystectomy Stomach: No significant focal abnormality. Duodenum: No significant focal abnormality. Pancreas: No significant abnormality. Spleen: No significant abnormality. Adrenal: No suspicious lesions. Kidney/ureter: No hydronephrosis. No renal calculi. Retroperitoneum: No retroperitoneal adenopathy. Vascular: No aneurysm. Bowel: Normal appendix.. Peritoneum: No ascites or free air. Bladder: Grossly unremarkable. Reproductive: No adnexal masses. Bones: No acute fracture. Multilevel degenerate disc disease with advanced disc height loss at L4-5 a nd moderate disc height loss at L3-4. Other: n/a IMPRESSION: 1. No acute intracranial abnormality. 2. No acute fracture or traumatic malalignment of the cervical spine. 3. No evidence of significant trauma to the chest, abdomen, or pelvis. 4. Small dural-based lesion suspected along the right intra cerebral falx not clearly evident on prio r CTs. This could represent a meningioma. It is unlikely to be trauma related. Consider nonemergent M RI of the brain with without contrast for further evaluation.
--- NOTE | 2022-05-04 17:05 | ER ---
Nurse's Notes [facility] Name: Heather Coon Age: 52 yrs Sex: Female : 1970 Arrival Date: 05/04/2022 Time: 13:31 Bed 15 Private MD: Diagnosis: Fall on same level, unspecified;Weakness-BILATERAL LOWER EXTREMITIES;Low back pain-DDD Presentation: 05/04 13:43 Chief complaint: Patient states: 2 weeks ago i was sent to [facility] they thought tw2 i was having a stroke. they thought all the numbness was from the 4 disc in my back and told me i had to do some physical therapy first. yesterday i was walking with my walker and my legs gave out from under me and i fell. it went numb. my back is killing me. [facility] wants me to have surgery. Coronavirus screen: At this time, the client does not indicate any symptoms associated with coronavirus-19. Ebola Screen: Patient denies travel to an Ebola-affected area in the 21 days before illness onset. Initial Sepsis Screen: Does the patient meet any 2 criteria? HR > 90 bpm. No. Patient's initial sepsis screen is negative. Does the patient have a suspected source of infection? No. Patient's initial sepsis screen is negative. Risk Assessment: Do you want to hurt yourself or someone else? Patient reports no desire to harm self or others. Onset of symptoms was May 04, 2022. 13:43 Method Of Arrival: Wheelchair tw2 13:43 Acuity: ANDER 3 tw2 Triage Assessment: 13:48 General: Appears uncomfortable, obese, Behavior is calm, cooperative, appropriate for [facility] age. Pain: Complains of pain in lumbar area, left low back and right low back. Musculoskeletal: Reports numbness in right leg and left leg and they got that tingling feeling like they are going to sleep or just waking up. i am in so much pain. 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 - Social history:: Smoking status: Smoking status: Patient reports the use of cigarette tobacco products, smokes one pack cigarettes per day. - Family history:: not pertinent. Screenin:32 Abuse screen: Denies threats or abuse. Denies injuries from another. Nutritional db screening: No deficits noted. Tuberculosis screening: No symptoms or risk factors identified. Fall Risk Fall in past 12 months (25 points). No secondary diagnosis (0 pts). No IV (0 pts). Ambulatory Aid- Crutches/Cane/Walker (15 pts). Gait- Weak (10 pts.). Mental Status- Oriented to own ability (0 pts). Total Costello Fall Scale indicates High Risk Score (45 or more points). Fall prevention measures have been instituted. Side Rails Up X 2 Placed Close to Nursing Station Family Present and informed to notify staff if the need to leave the bedside As available patient and family educated on Fall Prevention Program and Strategies. Assessment: 14:30 Reassessment: Patient appears in no apparent distress at this time. Patient states woke db up this AM unable to walk. States yesterday was walking with a walker and fell then today woke up and has increased amount of pain and unable to walk. states was told needs back surgery. General: Appears uncomfortable, Behavior is cooperative, appropriate for age. Pain: Complains of pain in back. Neuro: Level of Consciousness is awake, alert, obeys commands, Oriented to person, place, time, situation, Appropriate for age Speech is normal, Facial symmetry appears normal. Cardiovascular: No deficits noted. Respiratory: No deficits noted. GI: No deficits noted. : No deficits noted. EENT: No deficits noted. Derm: No deficits noted. Musculoskeletal: Reports weakness in right leg and left leg. 15:30 Reassessment: Patient appears in no apparent distress at this time. Patient and/or db family updated on plan of care and expected duration. Pain level reassessed. Patient is alert, oriented x 3, equal unlabored respirations, skin warm/dry/pink. 16:22 Reassessment: Patient in CT. db 17:30 Reassessment: Patient appears in no apparent distress at this time. No changes from db previously documented assessment. Patient and/or family updated on plan of care and expected duration. Pain level reassessed. Patient states feeling better. Patient states symptoms have improved. 18:30 Reassessment: Patient appears in no apparent distress at this time. No changes from db previously documented assessment. Patient and/or family updated on plan of care and expected duration. Pain level reassessed. 18:35 Reassessment: Patient states unable to urinate at this time. db 18:58 Reassessment: EMS at bedside. db Vital Signs: 13:43 BP 153 / 109; Pulse 102; Resp 17; Temp 98.8(TE); Pulse Ox 99% on R/A; Weight 81.65 kg tw2 (R); Height 5 ft. 3 in. (160.02 cm); Pain 10/10; 14:23 BP 161 / 98; Pulse 97; Resp 20; Pulse Ox 100% on R/A; Pain 10/10; db 15:30 BP 122 / 71; Pulse 91; Resp 16; Pulse Ox 99% ; db 16:00 BP 143 / 96; Pulse 87; Resp 16; Pulse Ox 95% on R/A; db 17:30 BP 116 / 83; Pulse 91; Resp 18; Pulse Ox 97% on R/A; db 18:30 BP 140 / 88; Pulse 93; Resp 16; Pulse Ox 98% ; db 19:00 BP 140 / 88; Pulse 89; Resp 16; Temp 98.9; Pulse Ox 100% ; Pain 9/10; db 13:43 Body Mass Index 31.89 (81.65 kg, 160.02 cm) tw2 ED Course: 13:31 Patient arrived in ED. ja2 13:43 Arm band placed on. tw2 13:47 Triage completed. tw2 14:22 Derrick Santillan MD is Attending Physician. fabrice 14:23 Torrey Whittington, RN is Primary Nurse. bp 15:16 Arlette Lyles, RN is Primary Nurse. db 15:19 XRAY Chest (1 view) In Process Unspecified. EDMS 15:35 Inserted saline lock: 20 gauge in right antecubital area, using aseptic technique. db Blood collected. 16:23 CT Traumagram (Head C Spine CAP wo con) In Process Unspecified. EDMS 16:[address] Santillan with Joaquín from the [facility] Transfer Center. eb 17:[address] Mcintosh the neurosurgeon [employer] for [facility] with Dr. Santillan for patient eb transfer consultation. 17:35 administrative approval given by Joaquín Garland/ patient has been accepted to [facility] eb [facility]/ Dr. Mcintosh has accepted the patient in transfer/ report to be called to [phone]. 18:23 Patient has correct armband on for positive identification. Bed in low position. Call db light in reach. Side rails up X 1. Report given to BETH oRse. 18:26 Client placed on continuous cardiac and pulse oximetry monitoring. NIBP monitoring db applied. Warm blanket given. 19:08 No provider procedures requiring assistance completed. Patient transferred, IV remains db in place. intact. Administered Medications: 15:40 Drug: NS 0.9% 1000 ml Route: IV; Rate: 125 ml/hr; Site: right antecubital; db 18:35 Follow up: Response: No adverse reaction; IV Status: Completed infusion; IV Intake: db 1000ml 15:40 Drug: morphine 4 mg Route: IVP; Infused Over: 4 mins; Site: right antecubital; db 16:20 Follow up: Response: No adverse reaction db 15:40 Drug: Zofran (Ondansetron) 4 mg Route: IVP; Site: right antecubital; db 16:20 Follow up: Response: No adverse reaction db 18:30 Drug: Decadron - Dexamethasone 10 mg Route: IVP; Site: right antecubital; db 19:09 Follow up: Response: No adverse reaction db 19:00 Drug: morphine 4 mg Route: IVP; Infused Over: 4 mins; Site: right antecubital; db 19:07 Follow up: Response: No adverse reaction db Medication: 19:00 VIS not applicable for this client. db Intake: 18:35 IV: 1000ml; Total: 1000ml. db Outcome: 17:04 ER care complete, transfer ordered by MD. avina 19:08 Transferred by ground EMS to [facility], Transfer form completed. X-rays db sent w/ patient. 19:08 Condition: stable 19:08 Discharge instructions given to EMS. 19:23 Patient left the ED. db Signatures: Dispatcher [employer] EDMS Tyrell, Derrick, MD MD fabrice Holly, [place], RN RN tw2 Torrey Whittington RN RN Radha Ching Jessica ja2 Benton, Danielle, BETH RN db Corrections: (The following items were deleted from the chart) 16:23 15:30 Reassessment: Patient appears in no apparent distress at this time. Patient db and/or family updated on plan of care and expected duration. Pain level reassessed. Patient is alert, oriented x 3, equal unlabored respirations, skin warm/dry/pink. Patient states symptoms have improved. db
--- NOTE | 2022-05-04 17:05 | EDPHYS ---
Physician Documentation [facility] Name: Heather Coon Age: 52 yrs Sex: Female : 1970 Arrival Date: 05/04/2022 Time: 13:31 Bed 15 Private MD: ED Physician Derrick Santillan HPI: 05/04 16:55 This 52 yrs old Female presents to ER via Wheelchair with complaints of Can't fabrice walk. 16:55 The patient's problem is reported as paresthesias, in right lower extremity, in left fabrice lower extremity, weakness, in the right lower extremity, in the left lower extremity. Onset: The symptoms/episode began/occurred 2 day(s) ago. Duration: The episode is continuous. Context: the episode(s) was witnessed, by family, symptoms became apparent LAST NIGHT. The symptoms are alleviated by standing, walking, The symptoms are aggravated by standing, walking. Associated signs and symptoms: Pertinent positives: back pain, gait abnormality. Severity of symptoms: At their worst the symptoms were moderate in the emergency department the symptoms are unchanged. Patient's baseline: Neuro: alert and fully oriented, Motor: BILATERAL LEG WEAKNESS. The patient has not experienced similar symptoms in the past. 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 - Social history:: Smoking status: Smoking status: Patient reports the use of cigarette tobacco products, smokes one pack cigarettes per day. - Family history:: not pertinent. ROS: 16:55 Constitutional: Negative for fever, chills, and weight loss, Eyes: Negative for injury, fabrice pain, redness, and discharge, ENT: Negative for injury, pain, and discharge, Neck: Negative for injury, pain, and swelling, Cardiovascular: Negative for chest pain, palpitations, and edema, Respiratory: Negative for shortness of breath, cough, wheezing, and pleuritic chest pain, Abdomen/GI: Negative for abdominal pain, nausea, vomiting, diarrhea, and constipation, : Negative for injury, bleeding, discharge, and swelling, MS/Extremity: Negative for injury and deformity, Skin: Negative for injury, rash, and discoloration, Neuro: Negative for headache, weakness, numbness, tingling, and seizure. 16:55 Back: Positive for decreased range of motion, pain at rest, pain with movement, radiated pain, of the low back area and left low back. Exam: 16:55 Constitutional: This is a well developed, well nourished patient who is awake, alert, fabrice and in no acute distress. Head/Face: Normocephalic, atraumatic. Eyes: Pupils equal round and reactive to light, extra-ocular motions intact. Lids and lashes normal. Conjunctiva and sclera are non-icteric and not injected. Cornea within normal limits. Periorbital areas with no swelling, redness, or edema. ENT: Nares patent. No nasal discharge, no septal abnormalities noted. Tympanic membranes are normal and external auditory canals are clear. Oropharynx with no redness, swelling, or masses, exudates, or evidence of obstruction, uvula midline. Mucous membranes moist. Neck: Trachea midline, no thyromegaly or masses palpated, and no cervical lymphadenopathy. Supple, full range of motion without nuchal rigidity, or vertebral point tenderness. No Meningismus. Chest/axilla: Normal chest wall appearance and motion. Nontender with no deformity. No lesions are appreciated. Cardiovascular: Regular rate and rhythm with a normal S1 and S2. No gallops, murmurs, or rubs. Normal PMI, no JVD. No pulse deficits. Respiratory: Lungs have equal breath sounds bilaterally, clear to auscultation and percussion. No rales, rhonchi or wheezes noted. No increased work of breathing, no retractions or nasal flaring. Abdomen/GI: Soft, non-tender, with normal bowel sounds. No distension or tympany. No guarding or rebound. No evidence of tenderness throughout. Neuro: Awake and alert, GCS 15, oriented to person, place, time, and situation. Cranial nerves II-XII grossly intact. Motor strength 5/5 in all extremities. Sensory grossly intact. Cerebellar exam normal. Normal gait. Psych: Awake, alert, with orientation to person, place and time. Behavior, mood, and affect are within normal limits. 16:55 Back: pain, that is moderate, ROM is decreased, with flexion, with extension, normal spinal alignment noted, CVA tenderness, that is mild, vertebral tenderness, is not appreciated, muscle spasm, is appreciated in the lumbar area, left low back and right low back. 17:00 Radiologist reports: SEE REPORT fabrice 17:00 ECG was reviewed by the Attending Physician. Vital Signs: 13:43 BP 153 / 109; Pulse 102; Resp 17; Temp 98.8(TE); Pulse Ox 99% on R/A; Weight 81.65 kg tw2 (R); Height 5 ft. 3 in. (160.02 cm); Pain 10/10; 14:23 BP 161 / 98; Pulse 97; Resp 20; Pulse Ox 100% on R/A; Pain 10/10; db 15:30 BP 122 / 71; Pulse 91; Resp 16; Pulse Ox 99% ; db 16:00 BP 143 / 96; Pulse 87; Resp 16; Pulse Ox 95% on R/A; db 17:30 BP 116 / 83; Pulse 91; Resp 18; Pulse Ox 97% on R/A; db 18:30 BP 140 / 88; Pulse 93; Resp 16; Pulse Ox 98% ; db 19:00 BP 140 / 88; Pulse 89; Resp 16; Temp 98.9; Pulse Ox 100% ; Pain 9/10; db 13:43 Body Mass Index 31.89 (81.65 kg, 160.02 cm) tw2 MDM: 14:22 Patient medically screened. fabrice 17:01 Differential diagnosis: paralysis. Data reviewed: vital signs, nurses notes, lab test [facility] result(s), EKG, radiologic studies, CT scan, plain films. Data interpreted: toxics program officer: rate is 87 beats/min, rhythm is regular, Pulse oximetry: on room air is 95 %. Test interpretation: by ED physician or midlevel provider: ECG, plain radiologic studies. Counseling: I had a detailed discussion with the patient and/or guardian regarding: the historical points, exam findings, and any diagnostic results supporting the discharge/admit diagnosis, lab results, radiology results, the need to transfer to another facility, for higher level of care, [facility] does not immediately have the required specialist. 05/04 14:56 Order name: Basic Metabolic Panel; Complete Time: 16:52 fabrice 05/04 14:56 Order name: CBC with Diff; Complete Time: 16:52 [facility] 05/04 14:56 Order name: LFT's; Complete Time: 16:52 [facility] 05/04 14:56 Order name: Magnesium; Complete Time: 16:52 [facility] 05/04 14:56 Order name: NT PRO-BNP; Complete Time: 16:52 [facility] 05/04 14:56 Order name: PT-INR; Complete Time: 16:52 fabrice 05/04 14:56 Order name: Troponin HS; Complete Time: 16:52 [facility] 05/04 14:56 Order name: XRAY Chest (1 view); Complete Time: 16:52 [facility] 05/04 14:56 Order name: Lipase; Complete Time: 16:52 [facility] 05/04 14:56 Order name: CT Traumagram (Head C Spine CAP wo con); Complete Time: 16:52 [facility] 05/04 15:36 Order name: SARS-COV-2 RT PCR; Complete Time: 16:52 EDMS 05/04 14:56 Order name: EKG; Complete Time: 14:57 [facility] 05/04 14:56 Order name: Cardiac monitoring; Complete Time: 16:20 [facility] 05/04 14:56 Order name: EKG - Nurse/Tech; Complete Time: 16:20 [facility] 05/04 14:56 Order name: IV Saline Lock; Complete Time: 16:21 [facility] 05/04 14:56 Order name: Labs collected and sent; Complete Time: 16:21 [facility] 05/04 14:56 Order name: O2 Per Protocol; Complete Time: 16:21 [facility] 05/04 14:56 Order name: O2 Sat Monitoring; Complete Time: 16:21 fabrice EC:00 Rate is 95 beats/min. Rhythm is regular. QRS [place] is Normal. CT interval is normal. QRS fabrice interval is normal. QT interval is normal. No Q waves. T waves are Normal. No ST changes noted. Clinical impression: NSR w/ Non-specific ST/T Changes and No evidence of ischemia. Interpreted by me. Reviewed by me. Administered Medications: 15:40 Drug: NS 0.9% 1000 ml Route: IV; Rate: 125 ml/hr; Site: right antecubital; db 18:35 Follow up: Response: No adverse reaction; IV Status: Completed infusion; IV Intake: db 1000ml 15:40 Drug: morphine 4 mg Route: IVP; Infused Over: 4 mins; Site: right antecubital; db 16:20 Follow up: Response: No adverse reaction db 15:40 Drug: Zofran (Ondansetron) 4 mg Route: IVP; Site: right antecubital; db 16:20 Follow up: Response: No adverse reaction db 18:30 Drug: Decadron - Dexamethasone 10 mg Route: IVP; Site: right antecubital; db 19:09 Follow up: Response: No adverse reaction db 19:00 Drug: morphine 4 mg Route: IVP; Infused Over: 4 mins; Site: right antecubital; db 19:07 Follow up: Response: No adverse reaction db Disposition Summary: 05/04/22 17:04 Transfer Ordered Transfer Location: [facility] fabrice Reason: Higher level of care fabrice Condition: Fair fabrice Problem: new fabrice Symptoms: have worsened fabrice Accepting Physician: TO [facility](05/04/22 19:23) db Diagnosis - Fall on same level, unspecified fabrice - Weakness - BILATERAL LOWER EXTREMITIES fabrice - Low back pain - DDD fabrice Forms: - Medication Reconciliation Form fabrice - SBAR form fabrice Signatures: Dispatcher [employer] Derrick Payton MD MD cha Wise, Tara, RN RN tw2 Arlette Lyles RN RN db Corrections: (The following items were deleted from the chart) 15:36 14:57 SARS-COV-2 Antigen Rapid+I.LAB.BRZ ordered. JACKELINEDC EDMS 19:23 17:04 TO [facility] fabrice db
[2022-05-04] MEDS ORDERED: dexAMETHasone 10 MG/ML VIAL ONE (18:29)
[2022-05-04 19:34] VITALS: BP 140/88
[2022-05-04 19:36] VITALS: TEMP 98.9; O2SAT 100
--- NOTE | 2022-05-05 16:10 | EKG ---
Test Date: 2022-05-04 Test Time: 15:47:59 Repairer And Checker: KV MEASUREMENT RESULTS: Intervals: Rate: 95 CA: 154 QRSD: 86 QT: 368 QTc: 462 [place]: P: 255 CA: 154 QRS: 111 T: 51 INTERPRETIVE STATEMENTS: Unusual P axis, possible ectopic atrial rhythm Right axis deviation Nonspecific T wave abnormality Prolonged QT Abnormal ECG Compared to ECG 03/09/2022 15:55:44 T-wave abnormality now present Prolonged QT interval now present Sinus rhythm no longer present Sinus arrhythmia no longer present Myocardial infarct finding no longer present Electronically Signed On 05-05-22 16:07:54 CDT by Saad Leavitt
== END 2022-05-04 19:23 | disposition short-term general hospital (02) ==
LOC: ER 13:27
DX: R53.1 Weakness (principal); M54.50 Low back pain, unspecified; M51.36 Other intervertebral disc degeneration, lumbar region; R20.2 Paresthesia of skin; W18.30XA Fall on same level, unspecified, initial encounter; G40.909 Epilepsy, unspecified, not intractable, without status epilepticus; F17.210 Nicotine dependence, cigarettes, uncomplicated; Z20.822 Contact with and (suspected) exposure to COVID-19; Z88.8 Allergy status to other drugs, medicaments and biological substances; Z91.018 Allergy to other foods
CPT/HCPCS: 36415; 70450; 71045; 71250; 72125; 80048; 80076; 83690; 83735; 83880; 84484; 85025; 85610; 93005; 96361; 96374; 96375; 99285; J1100; J2405; J7030; U0003

== ENCOUNTER 2022-06-13 14:10 | Emergency (ER) | payer SELFPAY ==
--- OUTSIDE RECORDS SUMMARY | 2022-06-13 14:40 | XMS REPORT | Continuity of Care Document ---
:1970 Author Organization [facility] t Address [address] [place] [address] Care Team Providers Name Role Phone Pcp, Patient Does Not Have A Primary Care Physician [id number] CHANTEL MATTHEWS Attending Clinician Unavailable CHANTEL MATTHEWS Attending Clinician Unavailable Maeve ELIZONDO, Brandyn Otoole Attending Clinician SELINA MARTINES Attending Clinician Unavailable Sapna Vargas DO Attending Clinician Glory Esteves MD Attending Clinician [phone] Selina Martines MD Attending Clinician Vaccine, Tampico Dangelo Attending Clinician Unavailable Jose Frederick MD Attending Clinician JOSE FREDERICK Attending Clinician Unavailable NICHELLE ALLISON Attending Clinician Unavailable Sav Rondon MD Attending Clinician Nichelle Bishop Attending Clinician Doctor Unassigned, [place] Attending Clinician Unavailable Miky Nava RN Attending Clinician Unavailable Fabrice Gordillo Attending Clinician Lydia Eaton Attending Clinician Unknown, Attending Attending Clinician Unavailable UNKNOWN, ATTENDING Attending Clinician Unavailable Anali Rascon Attending Clinician Yehuda Arcos MD Attending Clinician BRANDYN MCFARLANE Admitting Clinician Unavailable Brandyn Mcfarlane MD Admitting Clinician GLORY ESTEVES Admitting Clinician Unavailable NICHELLE ALLISON Admitting Clinician Unavailable Payers Payer Name Policy Type Policy Number Effective Date Ex[place] [facility] [place] 2022 PENDING 00:00:00 Problems Condition Condition Condition Status Onset Resolution Last Treating Co mments Source Name Details Category Date Date Treatment Clinician Date Chronic Chronic Disease Active 2021-07 Univers bilateral bilateral 0-17 ity of low back low back 00:00: [place] pain with pain with 00 Medi kwame bilateral bilateral Bran ch sciatica sciatica 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 9-27 ity of stenosis stenosis 00:00: [place] of neural of neural 00 Medi kwame canal of canal of Branch lumbar lumbar region region 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 9-27 ity of stenosis stenosis 00:00: [place] of of 00 Medical cervical cervical Branch spine spine Stroke-lik Stroke-lik Disease Active U nivers e symptoms e symptoms 9-25 it y of 00:00: [place] 00 Medical [...] Lumbar Lumbar Disease Active Univers spinal spinal 3 ity of stenosis stenosis 00:00: Medical Branch Right-side Right-side Disease Active U nivers d low back d low back 3 it y of pain with pain with 00:[place] sciatica, sciatica, 00 Medi kwame sciatica sciatica Branch laterality laterality unspecifie unspecifie d d Generalize Generalize Disease Active U nivers d anxiety d anxiety 3 ity of disorder disorder 00:00: Medical Branch Agoraphobi Agoraphobi Disease Active U nivers a a 3 ity of 00:00: Medical Branch Bipolar Bipolar Disease Active Univers disorder, disorder, 3 ity of in partial in partial 00:00[place] remission, remission, 00 Me dical most most Branch recent recent episode episode manic manic 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 09-27 it y of disorder disorder 00:00: Medical [...] Univers 3 ity of 00:00: Medical Branch Allergies, Adverse Reactions, Alerts Allergy Allergy Status Severity Reaction(s) Onset Inactive Treating Comm ents Source Name Type Date Date Clinician Fluoxeti Propensi Active Unknown - Uni vers ne ty to See comments 03-25 ity of adverse 00:00: [place] reaction 00 Medical s Branch FLUOXETI DRUG Active Unknown-Cmnt Un lois NE INGREDI 9-06 ity of 00:00: [place] 00 Medical Branch DICLOFEN DRUG Active HYPERTENSION Un lois AC INGREDI - ity of 00:00: [place] 00 Medical Branch Diclofen Propensi Active Hypertension Univers ac ty to 5-04 ity of adverse 00:00: [place] reaction 00 Medical s Branch GREEN DRUG Active Med Other-Cmnt Univer s TEA INGREDI - ity of 00:00: [place] 00 [...] Smoker Univ ersity of use [facility] Cigarettes smoked 2022-05-05 2022-05-05 Univers ity of current (pack per 00:00:00 00:00:00 ) - Reported Branch Cigarette 2022-05-05 2022-05-05 University of pack-years 00:00:00 00:00:00 [facility] Tobacco use and 2022-05-05 2022-05-05 Smokeless Universit y of exposure 00:00:00 00:00:00 tobacco non-user [facility] [place] [facility] Alcohol intake 2022-05-05 2022-05-05 0 /d University of 00:00:00 00:00:00 [facility] Exposure to 2022-04-24 2022-05-04 Not sure [facility] SARS-CoV-2 (event) 00:00:00 20:18:00 [facility] Sex [birth year] At [birth year] Universit y of 00:00:00 00:00:00 [facility] Smoking Status Start Date Stop Date Source Smokes tobacco daily 2022-05-05 00:00:00 Univers ity of [facility] Medications Ordered Filled Start Stop Current Ordering Indication Dosage Frequency Signature Comments Components Source Medication Medication Date Date Medication? Clinician (SIG) Name Name Methylpredn 2021-07- Yes [id number] 4mg Take 1 Univers isolone 4 0-22 10-24 tablet ity of mg tablet 00:00: 04:59 through [place] 00 :00 enteral Medical tube in Branch the morning for 1 dose. Methylpredn 2021-07- Yes [id number] 4mg Take 1 Univers isolone 4 0-21 10-23 tablet ity of mg tablet 00:00: 04:59 through [place] 00 :00 enteral Medical tube every Branch 12 (twelve) hours for 2 doses. MULTIVITAMI 2021-07 Yes 1{tbl} Take 1 Tab Univers N ORAL 0-20 by mouth ity of 14:44: daily. [place] [address] Medical Branch omega-3 2021-07 Yes 1g Take 1 g Univer s fatty 0-20 by mouth ity of acids-vitam 14:44: daily. [facility] s in E (FISH 48 Medical OIL) 1,000 Branch mg capsule loratadine 2021-[address] [facility] ers (CLARITIN 0-20 mouth ity of LIQUI-GEL) 14:44: daily. [place] 10 mg 48 Medical capsule Branch ondansetron 2021-07 Yes 4mg Take 4 mg U nivers (ZOFRAN) 4 0-20 by mouth ity o f mg tablet 14:44: every 8 [place] 48 (eight) Medical hours as Branch needed. pantoprazol 2021-07 Yes 40mg Take 40 mg Univers e 0-20 by mouth ity of (PROTONIX) 14:44: daily. [place] 40 mg EC 48 Medical tablet Branch DULoxetine 2021-07 Yes 30mg 30 mg, Unive rs (CYMBALTA) 0-20 Oral, ity of capsule 30 14:00: DAILY, [place] mg 00 First dose Medical on [facility] Branch 05/08/22 at 0900, Until Discontinu ed, Routine divalproex 2021-07 Yes 1000mg 1,000 mg, Univers (DEPAKOTE) 0-20 Oral, BID, ity of EC tablet 13:00: First dose [place] 1,000 mg 00 (after Medical last Branch modificati on) on [facility] 05/08/22 at 0800, Until Discontinu ed, Routine Methylpredn 2021-07- Yes 4mg 4 mg, Univ ers isolone 0-20 10-21 Oral, Q8H ity of (MEDROL) 08:50: 08:59 TAPER, 3 [place] tablet 4 mg 10 :00 doses, Medica l First dose Branch on [place] 05/08/22 at 0400, Last dose on Thu05/08/22 at 2000, Routine acetaminoph 2021-07 Yes 1{tbl} 1 tablet, Univers en-codeine 0-20 Oral, ity of (TYLENOL 04:07: Q4HPRN, [place] #3) 300-30 01 Starting Medic al mg tablet 1 on Thu Branch tablet 05/07/22 at 2307, Until Discontinu ed, Routine, Pain (scale 7-10) morpHINE (2 2021-07 Yes 2mg 2 mg, Slow Univers mg/mL) 0-20 IV Push, ity of injection 2 03:03: Q4HPRN, [place] mg 15 Starting Medical on Thu Branch 05/07/22 at 2203, Until Discontinu ed, Routine, Pain (scale 7-10) LORazepam 2021-07 Yes 1mg 1 mg, Univers (ATIVAN) 0-20 Oral, ity of tablet 1 mg 00:02: Q6HPRN, [place] 18 Starting Medical on Thu Branch 05/07/22 at 1902, Until Discontinu ed, Routine, Anxiety cyclobenzap 2021-07 Yes [id number] 5mg Take 1 Univers rine 5 mg 0-20 tablet by ity o f tablet 00:00: mouth in [place] 00 the Medical morning Branch and 1 tablet at noon and 1 tablet in the evening. DULoxetine 2021-07- Yes [id number] 60mg Take 2 Univers (CYMBALTA) 0-20 11-20 capsules ity of 30 mg 00:00: 05:59 by mouth [place] capsule 00 :00 in the Medical morning Branch for 30 days. divalproex 2021-07- Yes [id number] 750mg Take 3 Univers (DEPAKOTE) 0-20 11-20 tablets by it y of 250 mg EC 00:00: 05:59 mouth [place] tablet 00 :00 every 8 Medical (eight) Branch hours for 30 days. LORazepam 1 2021-07- Yes [id number] 1mg Take 1 Univers mg tablet 0-20 10-31 tablet by ity of 00:00: 04:59 mouth [place] 00 :00 every 6 Medical (six) Branch hours as needed for Anxiety or Agitation for up to 10 days. acetaminoph 2021-07- Yes [id number] 1{tbl} Take 1 U nivers en-codeine 0-20 10-28 tablet by ity of 300-30 mg 00:00: 04:59 mouth [place] tablet 00 :00 every 4 Medical (four) Branch hours as needed for Pain (scale 7-10) for up to 7 days. Indication s: acute pain Methylpredn 2021-07- Yes [id number] 4mg Take 1 Univers isolone 4 0-20 - tablet by ity of mg tablet 00:00: 04:59 mouth [place] 00 :00 every 8 Medical (eight) Branch hours for 3 doses. divalproex 2021-07- No 750mg 750 mg, Un lois (DEPAKOTE) 0-19 10-20 Oral, BID, it y of EC tablet 01:00: 09:40 First dose [place] 750 mg 00 :23 on [facility] 05/06/22 Branch at 2000, Until Discontinu ed, Routine levETIRAcet 2021-07 No 1500mg 1,500 mg, Univers am (KEPPRA) 005-06 Oral, BID, i ty of tablet 13:00: 18:38 First dose [place] 1,500 mg 00 :22 (after Medical last Branch modificati on) on [facility] 05/06/22 at 0800, Until Discontinu ed, Routine levETIRAcet 2021-07 No 1000mg 1,000 mg, Univers am (KEPPRA) 0-18 10-18 IV ity of in NACL 05:00: 05:46 Piggyback, [place] (ISO-OS) 00 :00 ONCE, 1 Medical 1,000 dose, On Branch mg/100 mL RTU 05/06/22 at 0000, Administer over 15 Minutes, 100 mL methocarbam 2021-07 No 500mg 500 mg, U nivers oL 0-18 10-18 Oral, QID, ity of (ROBAXIN) 02:15: 23:21 First dose [place] tablet 500 00 :42 on Mon Medical mg 05/05/22 Branch at 2115, Until Discontinu ed, Routine LORazepam 2021-07- No 2mg 2 mg, Univer s (ATIVAN) 0-18 10- Oral, ity of tablet 2 mg 01:30: 01:03 ONCE, 1 [place] 00 :00 dose, On [facility] 05/05/22 at 2030, Routine levETIRAcet 2021-07- No 1000mg 1,000 mg, Univers am (KEPPRA) 0-18 05-06 Oral, BID, i ty of tablet 01:00: 04:48 First dose [place] 1,000 mg 00 :[address] [facility] 05/05/22 Branch at 2000, Until Discontinu ed, Routine enoxaparin 2021-07 Yes 40mg 40 mg, Unive rs (LOVENOX) 018 Subcutaneo ity of injection 00:15: us, Q24H, [place] 40 mg 00 First dose Medical on [facility] 05/05/22 at 1915, Until Discontinu ed, Routine levETIRAcet 2021-07- No 1000mg 1,000 mg, Univers am (KEPPRA) 0- 10- IV ity of in NACL 19:45: 20:05 Piggyback, [place] (ISO-OS) 00 :00 ONCE, 1 Medical 1,000 dose, On Branch mg/[address] [facility] RTU 05/05/22 at 1445, Administer over 15 Minutes, 100 mL clonazePAM 2021-07 Yes .5mg 0.5 mg, Univ ers (KLONOPIN) 0-17 Oral, BID, ity of tablet 0.5 19:30: First dose [place] mg [address] [facility] 05/05/22 Branch at 1430, Until Discontinu ed, Routine ibuprofen 2021-07 Yes 600mg 600 mg, Univ ers (IBU) 0-17 Oral, TID ity of tablet 600 19:30: MEALS, [place] mg 00 First dose Medical on [facility] 05/05/22 at 1430, Until Discontinu ed, Routine gabapentin 2021-07 Yes 300mg 300 mg, Uni vers (NEURONTIN) 0-17 Oral, TID, it y of capsule 300 19:30: First dose [place] mg [address] [facility] 05/05/22 Branch at 1430, Until Discontinu ed, Routine cyclobenzap 2021-07 Yes 5mg 5 mg, Unive rs rine 0-17 Oral, TID, ity of (FLEXERIL) 19:30: First dose [place] tablet 5 mg [address] [facility] l 05/05/22 Branch at 1430, Until Discontinu ed, Routine acetaminoph 2021-07 Yes 1000mg 1,000 mg, Univers en 0-17 Oral, Q8H, ity of (TYLENOL) 19:30: First dose [place] tablet [address] [facility] Medical 1,000 mg 05/05/22 Branch at 1430, Until Discontinu ed, Routine pantoprazol 2021-07 Yes 40mg 40 mg, Univ ers e 0-17 Oral, ity of (PROTONIX) 14:00: DAILY, [place] EC tablet 00 First dose Medi kwame 40 mg on [facility] 05/05/22 at 0900, Until Discontinu ed, Routine docusate 2021-07 Yes 100mg 100 mg, Unive rs (COLACE) 0-17 Oral, ity of capsule 100 14:00: DAILY, [place] mg 00 First dose Medical on [facility] 05/05/22 at 0900, Until Discontinu ed, Routine HYDROcodone 2021-07- No 1{tbl} 1 tablet, Univers -acetaminop 0-17 10-17 Oral, ity of hen (NORCO) 10:32: 19:18 Q6HPRN, [place] 10-325 mg 02 :52 Starting Medica l tablet 1 on [facility] tablet 05/05/22 at 0532, Until [facility] 05/05/22 at 1418, Routine, Pain (scale 7-10) ondansetron 2021-07 Yes 4mg 4 mg, Slow Univers (ZOFRAN 0-17 IV Push, ity of (PF)) 06:49: Q6HPRN, [place] injection 4 57 Starting Medi kwame mg on [facility] 05/05/22 at 0149, Until Discontinu ed, Routine, Nausea and Vomiting (N/V) HYDROcodone 2021-07- No 1{tbl} 1 tablet, Univers -acetaminop 0-17 10-17 Oral, ity of hen (NORCO 06:49: 10:32 Q6HPRN, [place] 5) 5-325 mg 41 :14 Starting Medi kwame tablet [address] [facility] Branch tablet 05/05/22 at 0149, Until 05/05/22 at 0532, Routine, Pain (scale 7-10) acetaminoph 2021-07 No 325mg 325 mg, U nivers en 005-05 Oral, ity of (TYLENOL) 06:49: 19:18 Q4HPRN, [place] tablet 325 39 :52 Starting Medic al mg on [facility] Branch 05/05/22 at 0149, Until [facility] 05/05/22 at 1418, Routine, Pain (scale 4-6) ondansetron 2021-07 No 4mg 4 mg, Univ ers (ZOFRAN) 005-05 Oral, ity of tablet 4 mg 04:00: 03:26 ONCE, 1 [place] 00 :00 dose, On [facility] 05/04/22 at 2300, Routine morpHINE (2 2021-07 No 2mg 2 mg, Slow Univers mg/mL) 05-05 IV Push, ity of injection 2 04:00: 03:26 ONCE, 1 [place] mg 00 :00 dose, On [facility] 05/04/22 at 2300, Routine aspirin 81 Yes [id number] 81mg Take 1 U nivers mg chewable 9-28 tablet by ity of tablet 00:00: mouth in [place] 00 the Medical morning. Branch aspirin 81 Yes [id number] 81mg Take 1 U nivers mg chewable 9-28 tablet by ity of tablet 00:00: mouth in [place] 00 the Medical morning. Branch MULTIVITAMI Yes 1{tbl} Take 1 Tab Univers N ORAL 9-27 by mouth ity of 17:39: daily. [place] 14 [facility] Branch omega-3 Yes 1g Take 1 g Univer s fatty 9-27 by mouth ity of acids-vitam 17:39: daily. [place] in E (FISH 14 Medical OIL) 1,000 Branch mg capsule loratadine Yes Take by Univ ers (CLARITIN 9-27 mouth ity of LIQUI-GEL) 17:39: daily. [place] 10 14 Medical capsule Branch ondansetron Yes 4mg [...] Starting Medic al mg tablet 1 on Thu Branch tablet 04/15/22 at 0039, Until Thu04/15/22 at 0939, Routine, Pain (scale 4-6), Pain (scale 1-3) LORazepam 2021- No 2mg 2 mg, Univer s (ATIVAN) 04-15 Oral, ity of tablet 2 mg 03:30: 10:27 ONCE, 1 [place] 00 :00 dose, On Medical Mon Branch 04/14/22 at 2230, Routine levETIRAcet Yes [...] :00 ONCE, 1 Medical dose, On Branch 04/14/22 at 2115, Routine levETIRAcet Yes [id number] 1000mg Take 1 Univers am 1,000 mg 9-27 tablet by ity of tablet 00:00: mouth in [place] 00 the Medical morning Branch and 1 tablet in the evening. atorvastati 0 Yes [id number] 40mg Take 1 Univers n 40 mg 9-27 tablet by ity of tablet 00:00: mouth at [place] 00 bedtime. Medical Branch atorvastati 0 Yes [id number] 40mg Take 1 Univers n 40 mg 9-27 tablet by ity of tablet 00:00: mouth at [place] 00 bedtime. Medical Branch levETIRAcet 2021- No [id number] 1000mg Take 1 Univers am 1,000 mg 9-27 10-20 tablet by it y of tablet 00:00: 00:00 mouth in [place] 00 :00 the Medical morning Branch and 1 tablet in the evening. lidocaine 5 2021- Yes [id number] 1{patch Apply 1 Univers % (700 04-15 10-05 } Patch to ity of mg/patch) 00:00: 04:59 area(s) in [place] patch 00 :00 the [facility] morning Branch for 7 days. HYDROcodone 0 2021- Yes [id number] 1{tbl} Take 1 U [...] 12 Medical patch 1 Hours, Branch Patch [id number], Starting on Thu04/14/22 at 1645, Until Discontinu ed, Routine, Localized pain aspirin 0 Yes 81mg 81 mg, Univers chewable 04-14 Oral, ity of tablet 81 21:30: DAILY, [place] mg 00 First dose Medical on [facility] Branch 04/14/22 at 1630, Until Discontinu ed, Routine acetaminoph 2022-0 Yes 650mg 650 mg, Un lois en 04-14 Oral, ity of (TYLENOL) 21:29: Q6HPRN, [place] tablet 650 25 Starting Medic al mg on Mon Branch 04/14/22 at 1629, Until Discontinu ed, Routine, Pain (scale 1-3), Temp > 38.5 C, Temp > 37.5 C HYDROcodone 0 2022- No 1{tbl} 1 tablet, Univers -acetaminop 04-14 Oral, ity of hen (NORCO) 21:29: 05:39 Q6HPRN, [place] 10-325 mg 02 :41 Starting Medica l tablet 1 on Thu Branch tablet 04/14/22 at 1629, Until 04/15/22 at 0039, Routine, Pain (scale 7-10), Pain (scale 4-6) sulfur 2021- No [id number] 5mL 5 mL, Univ ers hexafluorid 04-14 Intravenou i ty of e microsphr 16:45: 16:45 s, ONCE, 1 [place] (LUMASON) 00 :00 dose, On Medica l injection 5 Mon Branch mL 04/14/22 at 1145, Routine
meteorology faculty member approving Restricted medication : [employer] clopidogreL Yes 75mg 75 mg, Univ ers (PLAVIX) 75 04-14 Oral, ity of mg tablet 14:00: DAILY, [place] 75 mg 00 First dose Medical on Thu Branch 04/14/22 at 0900, Until Discontinu ed, Routine pantoprazol Yes 40mg 40 mg, Univ ers e 04-14 Oral, ity of (PROTONIX) 14:00: DAILY, [place] EC tablet 00 First dose Medi kwame 40 mg on Thu Branch 04/14/22 at 0900, Until Discontinu ed, Routine atorvastati Yes 40mg 40 mg, Univ ers n (LIPITOR) 04-14 Oral, QHS, it y of tablet 40 02:00: First dose [place] mg 00 on [facility] 04/13/22 at Branch 2100, Until Discontinu ed, Routine LORazepam 2021- No 1mg 1 mg, Univer s (ATIVAN) 04-14 Oral, ity of tablet 1 mg 01:30: 01:45 ONCE, 1 [place] 00 :00 dose, On [facility] 04/13/22 at 2030, Routine methocarbam Yes 500mg 500 mg, Un lois oL 04-14 Oral, QID, ity of (ROBAXIN) 01:00: First dose [place] tablet 500 00 on [facility] mg 04/13/22 at Branch 1999, Until Discontinu ed, Routine heparin Yes 5000U 5,000 Univers (porcine) 04-14 Units, ity of injection 01:00: Subcutaneo [place] 5,000 Units 00 us, Q12H, Med ical First dose Branch on [place] 04/13/22 at 2000, Until Discontinu ed, Routine acetaminoph 2021- No 650mg 650 mg, U nivers en 04-14 Oral, ity of (TYLENOL) 00:23: 21:29 Q6HPRN, [place] tablet 650 25 :42 Starting Medic al mg on [facility] 04/13/22 at 1923, Until 04/14/22 at 1629, Routine, Pain (scale 1-3), Pain (scale 4-6), Temp > 38.5 C, Temp > 37.5 C lidocaine 2021- No 1{patch 1 Patch, Univers (LIDODERM) 04-14 } Topical, ity of 5 % (700 00:22: 13:51 Administer [place] mg/patch) 00 :00 over 12 Medical patch 1 Hours, [place] Patch ONCE, 1 dose, On [place] 04/13/22 at 1930, Routine FENTanyl PF 2021- No 50ug 50 mcg, Un lois (SUBLIMAZE 04-13 Slow IV ity o f (PF)) 20:30: 19:22 Push, [place] injection 00 :00 ONCE, 1 Medical 50 mcg dose, On [facility] 04/13/22 at 1530, Routine aspirin 2021- No 650mg 650 mg, Unive rs chewable 04-13 Oral, ity of tablet 650 20:15: 20:15 ONCE, 1 [place] mg 00 :00 dose, On [facility] 04/13/22 at 1515, Routine clopidogreL 2021- No 300mg 300 mg, U nivers (PLAVIX) 04-13 Oral, ity of 300 mg 20:00: 19:15 ONCE, 1 [place] tablet 300 00 :00 dose, On Medic al mg [facility] 04/13/22 at 1500, Routine ondansetron 2021- No 4mg 4 mg, Slow Univers (ZOFRAN 04-13 IV Push, ity of (PF)) 19:30: 19:22 ONCE, 1 [place] injection 4 00 :00 dose, On Medi kwame mg [facility] 04/13/22 at 1430, MICHAEL iopamidol 2021- No [id number] 100mL 100 mL, Univers (ISOVUE 04-13 Intravenou ity o f 370-500 mL) 18:31: 18:32 s, ONCE, 1 [place] injection 00 :00 dose, On Medica l 100 mL [facility] 04/13/22 at 1345, Routine NaCl 0.9% Yes 5mL 5 mL, Slow Un lois (NS) 04-13 IV Push, ity of injection 5 18:14: PRN - SEE [place] mL 11 INSTRUCT Medical NS, Branch Starting on [place] 04/13/22 at 1314, Until Discontinu ed, 10 mL aspirin Yes 324mg 324 mg, Univer s chewable 11-24 Oral, ity of tablet 324 14:00: DAILY, [place] mg 00 First dose Medical on [place] Branch 11/24/21 at 0900, Until Discontinu ed, Routine metoclopram 2021- No 10mg 10 mg, Uni vers iker [...] 1630, Administer over 15 Minutes, 100 mL Dose No Unknown 4-08 00:00: 00 Prozac 20 2021-0 No 1mg mg capsule 3-21 00:00: 00 Dose 2021-0 No Unknown 3-16 00:00: 00 Dose 2021-0 No Unknown 3-16 00:00: 00 Dose 2021-0 No Unknown 3-15 00:00: 00 Dose 2021-0 No Unknown 3-15 00:00: 00 Dose 2021-0 No Unknown 3-15 00:00: 00 Dose 2021-0 No Unknown 3-15 00:00: 00 Dose 2021-0 No Unknown 3-15 00:00: 00 Dose 2021-0 No Unknown 3-15 00:00: 00 Dose 2021-0 No Unknown 3-15 00:00: 00 Dose 2021-0 No Unknown 3-15 00:00: 00 Dose 2021-0 No Unknown 3-15 00:00: 00 Dose 2021-0 No Unknown 3-15 00:00: 00 Dose 2021-0 No Unknown 3-14 00:00: 00 Dose 2021-0 No Unknown 3-14 00:00: 00 Dose 2021-0 No Unknown 3-14 00:00: 00 Dose 2021-0 No Unknown 3-14 00:00: 00 Dose 2021-0 No Unknown 3-14 00:00: 00 Dose 2021-0 No Unknown 3-14 00:00: 00 Dose 2021-0 No Unknown 3-14 00:00: 00 Dose 2021-0 No Unknown 3-14 00:00: 00 Dose 2021-0 No Unknown 3-14 00:00: 00 hydroxyzine 2021-0 No 1mg HCl 50 mg 3-09 tablet 00:00: 00 Prozac 20 0 No 1mg mg capsule 3-09 00:00: 00 Dose 2021-0 No Unknown 3-06 00:00: 00 Dose 2021-0 No Unknown 3-06 00:00: 00 Dose 2021-0 No Unknown 3-06 00:00: 00 Dose 2021-0 No Unknown 3-06 00:00: 00 Dose 2021-0 No Unknown 3-06 00:00: 00 Wellbutrin 2020-07 No 1mg XL 150 mg 2-30 24 hr 00:00: tablet, 00 extended release Dose 2020-07 No Unknown 2-30 00:00: 00 ibuprofen 2020-07 No 1mg 800 mg 2-02 tablet 00:00: 00 levetiracet 2020-07 No 1mg am 500 mg 1-30 tablet 00:00: 00 Dose 2020-1 No Unknown 1-30 00:00: 00 levoFLOXaci 0 2020- No 500mg 500 mg, U nivers n 8- 08-29 Oral, ity of (LEVAQUIN) 04:00: 04:22 ONCE, 1 [place] tablet 500 00 :00 dose, Sat Medi kwame mg 03/16/21 at Branch 2315, MICHAEL
Re ason for Anti-Infec tive: Documented Infection< br>Documen sherice Infection Site: Respirator y
Durat ion of Therapy: 7 days levoFLOXaci 2022020- No 500mg 500 mg, U nivers n [...] mg(2.5 mg 03/16/21 at [facility])/3 mL 2100, MICHAEL nebulizer solution 3 [...] ity of succ 01:57: 02:11 Push, [place] (SOLU-MEDRO 00 :00 ONCE, 1 Medic al L) dose, Sat Branch injection 03/16/21 at 125 mg 2100, STAT ipratropium 0 2020- No 3mL 3 mL, Univ ers -albuteroL 03-17 Inhalation it y of (DUONEB) 01:57: 02:15 , ONCE, 1 [place] 0.5 mg-3 00 :00 dose, Sat Medica l mg(2.5 mg 03/16/21 at Bran ch base)/3 mL 2100, MICHAEL nebulizer solution 3 mL ipratropium 2020- No 3mL 3 mL, Univ ers -albuteroL 03-17 Inhalation it y of (DUONEB) :57: 02:15 , ONCE, 1 [place] 0.5 mg-3 00 :00 dose, Sat Medica l mg(2.5 mg 03/16/21 at Bran ch base)/3 mL 2100, MICHAEL nebulizer solution 3 mL NaCl 0.9% 2020- No 1000mL at 999 Uni vers (NS) IV 03-17 08- mL/hr, ity of infusion 01:57: 03:07 Intravenou [place] 1,000 mL 00 :00 s, ONCE, 1 Medic al dose, Sat Branch 03/16/21 at 2100, MICHAEL methylpredn 2020-2020- No 125mg 125 mg, U nivers isolone sod 03-17 Slow IV ity of succ 01:57: 02:11 Umpire, [place] (SOLU-MEDRO 00 :00 ONCE, 1 Medic al L) dose, Sat Branch injection 03/16/21 at 125 mg 2100, STAT ipratropium 0 2020- No 3mL 3 mL, Univ ers -albuteroL 03-17 Inhalation it y of (DUONEB) 01:57: 02:15 , ONCE, 1 [place] 0.5 mg-3 00 :00 dose, Sat Medica l mg(2.5 mg 03/16/21 at [facility] base)/3 mL 2100, MICHAEL nebulizer solution 3 mL levoFLOXaci [id number] 500mg Take 1 Univers n 500 mg 03-17 tablet by ity o f tablet 00:00: 04:59 mouth [place] 00 :00 daily for Medical 6 days. [place] levoFLOXaci [id number] 500mg Take 1 Univers n 500 mg 03-17 tablet by ity o f tablet 00:00: 04:59 mouth [place] 00 :00 daily for Medical 6 days. [place] levoFLOXaci [id number] 500mg Take 1 Univers n 500 mg 03-17 tablet by ity o f tablet 00:00: 04:59 mouth [place] 00 :00 daily for Medical 6 days. [place] levoFLOXaci [id number] 500mg Take 1 Univers n 500 mg 03-17 tablet by ity o f tablet 00:00: 04:59 mouth [place] 00 :00 daily for Medical 6 days. Branch predniSONE [id number] 30mg Take 3 Univers 10 mg 03-17 tablets by ity of tablet 00:00: 04:59 mouth [place] 00 :00 daily for Medical 4 days. Branch predniSONE No [id number] 30mg Take 3 Univers 10 mg 03-17 tablets by ity of tablet 00:00: 04:59 mouth [place] 00 :00 daily for Medical 4 days. Branch predniSONE No [id number] 30mg Take 3 Univers 10 mg 03-17 tablets by ity of tablet 00:00: 04:59 mouth [place] 00 :00 daily for Medical 4 days. Branch predniSONE [id number] 30mg Take 3 Univers 10 mg 03-17 tablets by ity of tablet 00:00: 04:59 mouth [place] 00 :00 daily for Medical 4 days. [place] albuterol [id number] 4{puff} 4 Puff, Univers (VENTOLIN) 03-15-27 Inhalation it y of inhaler 4 01:45: 00:44 , [place] :[place] dose, Arpita Medical 03/14/21 at Branch 2044, Routine dexamethaso 2020- No [id number] 10mg 10 mg, Univers ne 03-15- Intramuscu ity of (DECADRON) 01:45: 00:45 lar, ONCE, [place] injection 00 :00 1 dose, Medical 10 mg Arpita [place] 03/14/21 at 2044, Routine albuterol 0 Yes [id number] 2.5mg Inhale 3 Univers 2.5 mg /3 8-27 mL every 4 ity of mL (0.083 00:00: (four) [place] %) 00 hours as Medical nebulizer needed for Bran ch solution Wheezing or Shortness of Breath. albuterol Yes [id number] 2.5mg Inhale 3 Univers 2.5 mg /3 8-27 mL every 4 ity of mL (0.083 00:00: (four) [place] %) 00 hours as Medical nebulizer needed for Bran ch solution Wheezing or Shortness of Breath. albuterol 0 Yes [id number] 2.5mg Inhale 3 Univers 2.5 mg /3 8-27 mL every 4 ity of mL (0.083 00:00: (four) [place] %) 00 hours as Medical nebulizer needed for Bran ch solution Wheezing or Shortness of Breath. albuterol Yes [id number] 2.5mg Inhale 3 Univers 2.5 mg /3 8-27 mL every 4 ity of mL (0.083 00:00: (four) [place] %) 00 hours as Medical nebulizer needed for Bran ch solution Wheezing or Shortness of Breath. albuterol 2020- Yes [id number] 2.5mg Inhale 3 Univers 2.5 mg /3 8-27 mL every 4 ity of mL (0.083 00:00: (four) [place] %) 00 hours as Medical nebulizer needed for Bran ch solution Wheezing or Shortness of Breath. albuterol 2020- Yes [id number] 2.5mg Inhale 3 Univers 2.5 mg /3 8-27 mL every 4 ity of mL (0.083 00:00: ([facility]) [place] %) 00 hours as Medical nebulizer needed for Bran ch solution Wheezing or Shortness of Breath. albuterol 2020-0 Yes [id number] 2.5mg Inhale 3 Univers 2.5 mg /3 8-27 mL every 4 ity of mL (0.083 00:00: (four) [place] %) 00 hours as Medical nebulizer needed for Bran ch solution Wheezing or Shortness of Breath. albuterol 2020-0 Yes [id number] 2.5mg Inhale 3 Univers 2.5 mg /3 8-27 mL every 4 ity of mL (0.083 00:00: ([facility]) [place] %) 00 hours as Medical nebulizer needed for Bran ch solution Wheezing or Shortness of Breath. albuterol 0 Yes [id number] 2.5mg Inhale 3 Univers 2.5 mg /3 8-27 mL every 4 ity of mL (0.083 00:00: ([facility]) [place] %) 00 hours as Medical nebulizer needed for Bran ch solution Wheezing or Shortness of Breath. albuterol 2020-0 Yes [id number] 2.5mg Inhale 3 Univers 2.5 mg /3 8-27 mL every 4 ity of mL (0.083 00:00: (four) [place] %) 00 hours as Medical nebulizer needed for Bran ch solution Wheezing or Shortness of Breath. albuterol 0 Yes [id number] 2.5mg Inhale 3 Univers 2.5 mg /3 8-27 mL every 4 ity of mL (0.083 00:00: (four) [place] %) 00 hours as Medical nebulizer needed for Bran ch solution Wheezing or Shortness of Breath. albuterol 0 Yes [id number] 2.5mg Inhale 3 Univers 2.5 mg /3 [...] (KEPPRA 8-03 mouth. ity of ORAL) 19:45: [address] levetiracet Yes Take by Uni vers am (KEPPRA 8-03 mouth. ity of ORAL) 19:45: [address] levetiracet Yes Take by Uni vers am (KEPPRA 8-03 mouth. ity of ORAL) 19:45: [address] levetiracet Yes Take by Uni vers am (KEPPRA 8-03 mouth. ity of ORAL) 19:45: [address] levetiracet Yes Take by Uni vers am (KEPPRA 8-03 mouth. ity of ORAL) 19:45: [address] levetiracet Yes Take by Uni vers am (KEPPRA 8-03 mouth. ity of ORAL) 19:45: [address] LISINOPRIL- 2020- No Take by Un lois HYDROCHLORO 02-19 mouth. ity o f THIAZIDE 19:41: 00:00 [place] ORAL 15 :00 [facility] dicyclomine 2020- No 20mg 20 mg, Uni [...] Tue Medica l NaCl 0.9% 02/19/21 at Bran h (NS) 50 mL 1415, 50 piggyback [...] at Branch 1200, MICHAEL iopamidol 2020- No [id number] 100mL 100 mL, Univers (ISOVUE 02-19 Intravenou ity o f 370-500 mL) 16:35: 16:45 s, ONCE, 1 [place] injection 00 :00 dose, Tue Medic al 100 mL 02/19/21 at Branch 1145, Routine levetiracet Yes Take by Uni vers am (KEPPRA 8-03 mouth. ity of ORAL) 14:45: [address] levetiracet Yes Take by Uni vers am (KEPPRA 8-03 mouth. ity of ORAL) 14:45: [address] levetiracet Yes Take by Uni vers am (KEPPRA 8-03 mouth. ity of ORAL) 14:45: [address] levetiracet Yes Take by Uni vers am (KEPPRA 8-03 mouth. ity of ORAL) 14:45: [address] levetiracet Yes Take by Uni vers am (KEPPRA 8-03 mouth. ity of ORAL) 14:45: [address] proMETHazin Yes [id number] 25mg Take 1 Univers e 25 mg 02-19 tablet by ity of tablet 00:00: mouth [place] 00 every 6 Medical (six) Branch hours as needed for Nausea and Vomiting (N/V). dicyclomine 2021-0 Yes [id number] 20mg Take 1 Univers 20 mg 8-03 tablet by ity of tablet 00:00: mouth 4 (four) Medical times Branch daily as needed for Abdominal pain. proMETHazin 2020-0 Yes [id number] 25mg Take 1 Univers e 25 mg 8-03 tablet by ity of tablet 00:00: mouth [place] 00 every 6 Medical (six) Branch hours as needed for Nausea and Vomiting (N/V). dicyclomine 2020-0 Yes [id number] 20mg Take 1 Univers 20 mg 8-03 tablet by ity of tablet 00:00: mouth (four) Medical times Branch daily as needed for Abdominal pain. proMETHazin 2020-0 Yes [id number] 25mg Take 1 Univers e 25 mg 8-03 tablet by ity of tablet 00:00: mouth 00 every 6 Medical (six) Branch hours as needed for Nausea and Vomiting (N/V). dicyclomine 2020-0 Yes [id number] 20mg Take 1 Univers 20 mg 8-03 tablet by ity of tablet 00:00: mouth (four) Medical times Branch daily as needed for Abdominal pain. proMETHazin 2020-0 Yes [id number] 25mg Take 1 Univers e 25 mg 8-03 tablet by ity of tablet 00:00: mouth [place] 00 every 6 Medical (six) Branch hours as needed for Nausea and Vomiting (N/V). dicyclomine 1-0 Yes [id number] 20mg Take 1 Univers 20 mg 8-03 tablet by ity of tablet 00:00: mouth (four) Medical times Branch daily as needed for Abdominal pain. proMETHazin 2021-0 Yes [id number] 25mg Take 1 Univers e 25 mg 8-03 tablet by ity of tablet 00:00: mouth [place] 00 every 6 Medical (six) Branch hours as needed for Nausea and Vomiting (N/V). dicyclomine 2021-0 Yes [id number] 20mg Take 1 Univers 20 mg 8-03 tablet by ity of tablet 00:00: mouth (four) Medical times Branch daily as needed for Abdominal pain. proMETHazin 2021-0 Yes [id number] 25mg Take 1 Univers e 25 mg 8-03 tablet by ity of tablet 00:00: mouth [place] 00 every 6 Medical (six) Branch hours as needed for Nausea and Vomiting (N/V). dicyclomine 2020-0 Yes [id number] 20mg Take 1 Univers 20 mg 8-03 tablet by ity of tablet 00:00: mouth 4 [place] 00 (four) Medical times Branch daily as needed for Abdominal pain. proMETHazin 2020-0 Yes [id number] 25mg Take 1 Univers e 25 mg 8-03 tablet by ity of tablet 00:00: mouth [place] 00 every 6 Medical (six) Branch hours as needed for Nausea and Vomiting (N/V). dicyclomine 2020-0 Yes [id number] 20mg Take 1 Univers 20 mg 8-03 tablet by ity of tablet 00:00: mouth 4 [place] 00 (four) Medical times Branch daily as needed for Abdominal pain. proMETHazin 2020-0 Yes [id number] 25mg Take 1 Univers e 25 mg 8-03 tablet by ity of tablet 00:00: mouth [place] 00 every 6 Medical (six) Branch hours as needed for Nausea and Vomiting (N/V). dicyclomine 2020-0 Yes [id number] 20mg Take 1 Univers 20 mg 8-03 tablet by ity of tablet 00:00: mouth 4 [place] 00 (four) Medical times Branch daily as needed for Abdominal pain. proMETHazin 2020-0 Yes [id number] 25mg Take 1 Univers e 25 mg 8-03 tablet by ity of tablet 00:00: mouth [place] 00 every 6 Medical (six) Branch hours as needed for Nausea and Vomiting (N/V). dicyclomine 2020-0 Yes [id number] 20mg Take 1 Univers 20 mg 8-03 tablet by ity of tablet 00:00: mouth 4 [place] 00 (four) Medical times Branch daily as needed for Abdominal pain. proMETHazin 2020-0 Yes [id number] 25mg Take 1 Univers e 25 mg 8-03 tablet by ity of tablet 00:00: mouth [place] 00 every 6 Medical (six) Branch hours as needed for Nausea and Vomiting (N/V). dicyclomine 2020-0 Yes [id number] 20mg Take 1 Univers 20 mg 8-03 tablet by ity of tablet 00:00: mouth (four) Medical times Branch daily as needed for Abdominal pain. proMETHazin 0 Yes [id number] 25mg Take 1 Univers e 25 mg 8-03 tablet by ity of tablet 00:00: mouth 00 every 6 Medical (six) Branch hours as needed for Nausea and Vomiting (N/V). dicyclomine Yes [id number] 20mg Take 1 Univers 20 mg 8-03 tablet by ity of tablet 00:00: mouth (four) Medical times Branch daily as needed for Abdominal pain. proMETHazin Yes [id number] 25mg Take 1 Univers e 25 mg 8-03 tablet by ity of tablet 00:00: mouth every 6 Medical (six) Branch hours as needed for Nausea and Vomiting (N/V). dicyclomine Yes [id number] 20mg Take 1 Univers 20 mg 8-03 tablet by ity of tablet 00:00: mouth (four) Medical times Branch daily as needed for Abdominal pain. proMETHazin Yes [id number] 25mg Take 1 Univers e 25 mg 8-03 tablet by ity of tablet 00:00: mouth every 6 Medical (six) Branch hours as needed for Nausea and Vomiting (N/V). dicyclomine 0 Yes [id number] 20mg Take 1 Univers 20 mg 8-03 [...] 20:05: daily. [place] 40 mg EC 01 Medical tablet Branch ondansetron 2018-0 Yes 4mg Take 4 mg U nivers (ZOFRAN) 4 7-24 by mouth ity o f mg tablet 20:05: every 8 [place] (eight) Medical hours as Branch needed. pantoprazol 2018-0 Yes 40mg Take 40 mg Univers e 7-24 by mouth ity of (PROTONIX) 20:05: daily. [place] 40 mg EC Medical tablet Branch LISINOPRIL- 2018-0 Yes Take [...] o f mg tablet 20:05: every 8 [place] [address] (eight) Medical hours as Branch needed. pantoprazol 2018-0 Yes 40mg Take 40 mg Univers e 7-24 by mouth ity of (PROTONIX) 20:05: daily. [place] 40 mg EC Medical tablet Branch ondansetron 2018-0 Yes 4mg Take 4 mg U nivers (ZOFRAN) 4 7-24 by mouth ity o f mg tablet 20:05: every 8 [place] [address] (eight) Medical hours as Branch needed. pantoprazol 2018-0 Yes 40mg Take 40 mg Univers e 7-24 by mouth ity of (PROTONIX) 20:05: daily. [place] 40 mg EC Medical tablet Branch ondansetron 2018-0 Yes 4mg Take 4 mg U nivers (ZOFRAN) 4 7-24 by mouth ity o f mg tablet 20:05: every 8 [place] [address] (eight) Medical hours as Branch needed. pantoprazol [...] 7-24 by mouth ity of 19:58: daily. [place] [address] Medical Branch loratadine [address] [facility] ers (CLARITIN 7-24 mouth ity of LIQUI-GEL) 19:58: daily. [place] 10 mg 14 Medical capsule Branch MULTIVITAMI 0 Yes 1{tbl} Take 1 Tab Univers N ORAL 7-24 by mouth ity of 19:58: daily. [place] 14 Medical Branch loratadine 2017-0 Yes Take by Univ ers (CLARITIN 7-24 mouth ity of LIQUI-GEL) 19:58: daily. [place] 10 mg 14 Medical capsule Branch MULTIVITAMI 0 Yes 1{tbl} Take 1 Tab Univers N ORAL 7-24 by mouth ity of 19:58: daily. [place] [address] Medical Branch loratadine 0 Yes Take by Univ ers (CLARITIN 7-24 mouth ity of LIQUI-GEL) 19:58: daily. [place] 10 mg 14 Medical capsule Branch MULTIVITAMI 0 Yes 1{tbl} Take 1 Tab Univers N ORAL 7-24 by mouth ity of 19:58: daily. [place] [address] Medical Branch loratadine 2017-[address] [facility] ers (CLARITIN 7-24 mouth ity of LIQUI-GEL) 19:58: daily. [place] 10 mg 14 Medical capsule Branch MULTIVITAMI 0 Yes 1{tbl} Take 1 Tab Univers N ORAL 7-24 by mouth ity of 19:58: daily. [place] [address] Medical Branch loratadine 0 Yes Take by Univ ers (CLARITIN 7-24 mouth ity of LIQUI-GEL) 19:58: daily. [place] 10 mg 14 Medical capsule Branch MULTIVITAMI 0 Yes 1{tbl} Take 1 Tab Univers N ORAL 7-24 by mouth ity of 19:58: daily. [place] [address] Medical Branch loratadine [address] [facility] ers (CLARITIN 7-24 mouth ity of LIQUI-GEL) 19:58: daily. [place] 10 mg 14 Medical capsule Branch MULTIVITAMI 0 Yes 1{tbl} Take 1 Tab Univers N ORAL 7-24 by mouth ity of 19:58: daily. [place] [address] Medical Branch loratadine 2017-[address] [facility] ers (CLARITIN 7-24 mouth ity of LIQUI-GEL) 19:58: daily. [place] 10 mg 14 Medical capsule Branch ondansetron 0 Yes 4mg Take 4 mg U nivers (ZOFRAN) 4 7-24 by mouth ity o f mg tablet 15:05: every 8 [place] [address] (eight) Medical hours as Branch needed. pantoprazol 2018-0 Yes 40mg Take 40 mg Univers e 7-24 by mouth ity of (PROTONIX) 15:05: daily. [place] 40 mg EC 01 Medical tablet Branch ondansetron 2018-0 Yes 4mg Take 4 mg U nivers (ZOFRAN) 4 7-24 by mouth ity o f mg tablet 15:05: every 8 [place] 01 (eight) Medical hours as Branch needed. pantoprazol 2018-0 Yes 40mg Take 40 mg Univers e 7-24 by mouth ity of (PROTONIX) 15:05: daily. [place] 40 mg EC 01 Medical tablet Branch [...] o f mg tablet 15:05: every 8 [place] [address] (eight) Medical hours as Branch needed. pantoprazol [...] 30 daily. Medical per tablet Branch omega-3 0 Yes 1g Take 1 g [...] 7-24 by mouth ity of 14:58: daily. [place] 14 Medical Branch loratadine Yes Take by Univ ers (CLARITIN 7-24 mouth ity of LIQUI-GEL) 14:58: daily. [place] 10 mg 14 Medical capsule Branch MULTIVITAMI Yes 1{tbl} Take 1 Tab Univers N ORAL 7-24 by mouth ity of 14:58: daily. [place] 14 Medical Branch loratadine 0 Yes Take by Univ ers (CLARITIN 7-24 mouth ity of LIQUI-GEL) 14:58: daily. [place] 10 mg 14 Medical capsule Branch MULTIVITAMI 0 Yes 1{tbl} Take 1 Tab Univers N ORAL 7-24 by mouth ity of 14:58: daily. [place] [address] Medical Branch loratadine Yes Take by Univ ers (CLARITIN 7-24 mouth ity of LIQUI-GEL) 14:58: daily. [place] 10 mg 14 Medical capsule Branch MULTIVITAMI 0 Yes 1{tbl} Take 1 Tab Univers N ORAL 7-24 by mouth ity of 14:58: daily. [place] 14 Medical Branch loratadine Yes Take by [facility] ers (CLARITIN 7-24 mouth ity of LIQUI-GEL) 14:58: daily. [place] 10 mg 14 Medical capsule Branch MULTIVITAMI Yes 1{tbl} Take 1 Tab Univers N ORAL 7-24 by mouth ity of 14:58: daily. [place] 14 Medical Branch loratadine Yes Take by [facility] ers (CLARITIN 7-24 mouth ity of [...] [place] mg tablet 00 Medical Branch carvedilol 2015- Yes 6.25mg Take 1 Tab Univers (COREG) [...] Ordered Filled Immunization Date Status Comments [facility] e Immunization Name Name SARS-COV-2 COVID-19 2022-02-19 Completed Unive rsity of PFIZER BA-SUCROSE 00:00:00 [place] Medical VACCINE (ROSE TOP) Branch SARS-COV-2 COVID-19 2022-02-19 Completed Unive rsity of PFIZER BA-SUCROSE 00:00:00 [place] Medical VACCINE (ROSE TOP) Branch SARS-COV-2 COVID-19 2022-02-19 Completed Unive rsity of PFIZER BA-SUCROSE 00:00:00 [place] Medical VACCINE (ROSE TOP) Branch SARS-COV-2 COVID-19 2021-05-24 Completed Unive rsity of PFIZER VACCINE 00:00:00 [facility] SARS-COV-2 COVID-19 2021-05-24 Completed Unive rsity of PFIZER VACCINE 00:00:00 [facility] SARS-COV-2 COVID-19 2021-05-24 Completed Unive rsity of PFIZER VACCINE 00:00:00 [facility] SARS-COV-2 COVID-19 2021-05-24 Completed Unive rsity of PFIZER VACCINE 00:00:00 [facility] SARS-COV-2 COVID-19 2021-05-24 Completed Unive rsity of PFIZER VACCINE 00:00:00 [facility] SARS-COV-2 COVID-19 2021-05-03 Completed Unive rsity of PFIZER VACCINE 00:00:00 [facility] SARS-COV-2 COVID-19 2021-05-03 Completed Unive rsity of PFIZER VACCINE 00:00:00 [facility] SARS-COV-2 COVID-19 2021-05-03 Completed Unive rsity of PFIZER VACCINE 00:00:00 [facility] SARS-COV-2 COVID-19 2021-05-03 Completed Unive rsity of PFIZER VACCINE 00:00:00 [facility] SARS-COV-2 COVID-19 2021-05-03 Completed Unive rsity of PFIZER VACCINE 00:00:00 [facility] SARS-COV-2 COVID-19 2021-05-03 Completed Unive rsity of PFIZER VACCINE 00:00:00 [facility] Vital Signs Vital Name Observation Time Observation Value Comments Source Systolic blood 2022-05-08 16:40:00 146 mm[Hg] Univer sity of pressure [facility] Diastolic blood 2022-05-08 16:40:00 96 mm[Hg] Unive rsity of pressure [facility] Heart rate 2022-05-08 16:40:00 112 /min Universi ty [facility] Body temperature 2022-05-08 16:40:00 36.78 Radha Univ ersity of [facility] Respiratory rate 2022-05-08 16:40:00 18 /min [facility] ersity of [facility] Oxygen saturation in 2022-05-08 16:40:00 94 /min University of Arterial blood by [facility] Pulse oximetry Branch Body height 2022-05-05 23:44:00 160 cm Universi ty [facility] Body weight 2022-05-05 23:37:00 81.647 kg [facility] BMI 2022-05-05 23:37:00 31.89 kg/m2 [facility] ty [facility] Systolic blood 2022-04-15 18:52:00 104 mm[Hg] Univer sity of pressure [facility] Diastolic blood 2022-04-15 18:52:00 82 mm[Hg] Unive rsity of pressure [facility] Heart rate 2022-04-15 18:52:00 114 /min Universi ty of [facility] Oxygen saturation in 2022-04-15 18:52:00 98 /min University of Arterial blood by [facility] Pulse oximetry Branch Body temperature 2022-04-15 16:14:00 36.28 Radha Univ ersity of [place] [facility] Respiratory rate 2022-04-15 16:14:00 17 /min Univ ersity of [place] [facility] Body height 2022-04-13 21:08:00 160 cm Universi ty of [place] [facility] Body weight 2022-04-13 21:08:00 91.173 kg Universi ty of [place] [facility] BMI 2022-04-13 21:08:00 35.61 kg/m2 Universi ty of [place] [facility] Systolic blood 2021-11-23 21:30:00 132 mm[Hg] Univer sity of pressure [place] [facility] Diastolic blood 2021-11-23 21:30:00 76 mm[Hg] Unive rsity of pressure [place] [facility] Heart rate 2021-11-23 21:30:00 95 /min Universi ty of [place] [facility] Respiratory rate 2021-11-23 21:30:00 13 /min Univ ersity of [place] [facility] Oxygen saturation in 2021-11-23 21:30:00 97 /min University of Arterial blood by [facility] Pulse oximetry Branch Body temperature 2021-11-23 20:15:00 37.56 Radha Univ ersity of [place] [facility] Systolic blood 2021-03-17 03:00:00 117 [...] 96 /min University of Arterial blood by [facility] Pulse oximetry Branch Body temperature 2021-03-17 00:39:00 37.11 Radha Univ ersity of [place] Medical [...] Unive rsity of pressure [place] [facility] [place] Heart rate 2021-03-15 00:14:00 100 /min Universi [...] /min University of Arterial blood by [place] [employer] Pulse oximetry Branch Systolic blood 2021-02-19 18:00:00 131 mm[Hg] Univer sity of pressure [place] [facility] [place] Diastolic blood 2021-02-19 18:00:00 80 mm[Hg] Unive rsity of pressure [place] [facility] [place] Heart rate 2021-02-19 18:00:00 83 /min Universi ty of [place] [facility] Respiratory rate 2021-02-19 18:00:00 18 /min Univ ersity of [facility] Oxygen saturation in 2021-02-19 18:00:00 100 /min University of Arterial blood by [place] [employer] [facility] Pulse oximetry Branch Body temperature 2021-02-19 15:47:00 37 Radha Univ ersity of [place] [facility] [place] Body height 2021-02-19 15:47:00 160 cm Universi ty of [place] [facility] Body weight 2021-02-19 15:47:00 58.968 kg Universi ty of [place] [facility] BMI 2021-02-19 15:47:00 23.03 kg/m2 Universi ty of [place] [facility] BP Systolic 2021-09-30 18:15:00 148 mm[Hg] BP Diastolic 2021-09-30 18:15:00 91 mm[Hg] Weight Measured 2021-09-30 18:15:00 179.60 pounds Height Measured 2021-09-30 18:15:00 63.00 inches Body Temperature 2021-09-30 18:15:00 98.30 degrees Heart Rate 2021-09-30 18:15:00 107.00 /min Respiratory Rate 2021-09-30 18:15:00 16.00 /min BP Systolic 2021-06-24 17:17:00 159 mm[Hg] BP Diastolic 2021-06-24 17:17:00 89 mm[Hg] Weight Measured 2021-06-24 17:17:00 162.40 pounds Height Measured 2021-06-24 17:17:00 63.00 inches Body Temperature 2021-06-24 17:17:00 98.90 degrees Heart Rate 2021-06-24 17:17:00 102.00 /min Respiratory Rate 2021-06-24 17:17:00 BP Systolic 2021-06-20 11:32:00 146 mm[Hg] BP Diastolic 2021-06-20 11:32:00 92 mm[Hg] Weight Measured 2021-06-20 11:32:00 161.80 pounds Height Measured 2021-06-20 11:32:00 63.00 inches Body Temperature 2021-06-20 11:32:00 98.20 degrees Heart Rate 2021-06-20 11:32:00 106.00 /min Respiratory Rate 2021-06-20 11:32:00 BP Systolic 2021-06-18 14:22:00 156 mm[Hg] BP Diastolic 2021-06-18 14:22:00 93 mm[Hg] Weight Measured 2021-06-18 14:22:00 164.40 pounds Height Measured 2021-06-18 14:22:00 63.00 inches Body Temperature 2021-06-18 14:22:00 98.10 degrees Heart Rate 2021-06-18 14:22:00 106.00 /min Respiratory Rate 2021-06-18 14:22:00 Procedures Procedure Date / Time Performing Clinician Source Performed PHOSPHORUS 2022-05-08 Azeem Meehan [place] of 05:51:00 [facility] MAGNESIUM 2022-05-08 [facility] 05:[facility]00 [facility] BASIC METABOLIC PANEL (NA, K, 2022-05-08 Azeem Meehan U niversity of CL, CO2, GLUCOSE, BUN, 05:51:00 [place] [facility] ical CREATININE, CA) Branch CBC WITH DIFF 2022-05-08 YvesTirado, [facility] of 05:51:00 [facility] BASIC METABOLIC PANEL (NA, K, 2022-05-07 [facility] of CL, CO2, GLUCOSE, BUN, 07:09:00 [facility] ical CREATININE, [place]) Branch CBC WITH DIFF 2022-05-07 [facility] of 07:09:[address] [facility] POCT GLUCOSE (AUTOMATED) 2022-05-07 Brandyn Mcfarlane ity of 01:16:00 [facility] HB ABO GROUPING 2022-05-06 [facility] of 05:07:00 [facility] BASIC METABOLIC PANEL (NA, K, 2022-05-06 [facility] of CL, CO2, GLUCOSE, BUN, 05:04:00 [place] Med ical CREATININE, CA) Branch CBC WITH DIFF 2022-05-06 [facility] 05:04:00 [facility] KEPPRA (LEVETIRACETAM) 2022-05-06 [facility] ty of 05:04:00 [facility] MR LUMBAR SPINE WO CONTRAST 2022-05-06 KneedlerEnder U niversity [facility] 02:54:37 [facility] ELECTROENCEPHALOGRAM 2022-05-06 [facility] ty of 00:00:[address] [facility] BASIC METABOLIC PANEL (NA, K, 2022-05-05 [facility] of CL, CO2, GLUCOSE, BUN, 07:57:00 [facility] CREATININE, [place]) Branch CBC WITH DIFF 2022-05-05 [facility] of 07:57:00 [facility] PROTHROMBIN TIME / INR 2022-05-05 [facility] 07:57:00 [facility] ACTIVATED PARTIAL THRMPLAS 2022-05-05 Shaun [facility] of DAVID 07:57:00 [facility] FIBRINOGEN 2022-05-05 [facility] of 07:57:00 [facility] EMERGENCY SERVICES AGREEMENTS 2022-05-04 Doctor Unassigned, University of AND AUTHORIZATIONS 05:01:00 [place] [facility] VITAMIN D, 25-[place] 2022-04-15 [place] of 16:53:00 [facility] MR THORACIC SPINE WO CONTRAST 2022-04-15 Soumya Chua Un iversity of 11:56:19 [facility] MR CERVICAL SPINE WO CONTRAST 2022-04-15 Soumya Chua Un iversity of 11:20:00 [facility] BASIC METABOLIC PANEL (NA, K, 2022-04-15 Charmaine Morataya Un iversity of CL, CO2, GLUCOSE, BUN, 10:36:00 [place] [facility] ical CREATININE, [place]) Branch TEST, URINE 2022-04-15 [facility] of 04:39:00 [facility] URINE DRUG (IMMUNOASSAY) - 2022-04-15 [facility] COMPREHENSIVE DRUG SCREEN 04:39:00 [facility] URINALYSIS 2022-04-15 [facility] of 04:39:00 [facility] TRANSTHORACIC ECHO (TTE) 2022-04-[address] [facility] ity of COMPLETE W/ CONTRAST 16:37:03 [facility] KEPPRA (LEVETIRACETAM) 2022-04-14 Harshil [facility] y of 15:30:00 [facility] MAGNESIUM 2022-04-14 [facility] of 10:03:00 [facility] BASIC METABOLIC PANEL (NA, K, 2022-04-14 Soumya Chua Un iversity of CL, CO2, GLUCOSE, BUN, 10:03:00 [place] [facility] CREATININE, [place]) Branch MR LUMBAR SPINE WO CONTRAST 2022-04-14 Harshil [facility] ersity of 02:48:12 [facility] MR STROKE BRAIN WO CONTRAST 2022-04-14 Harshil [facility] ersity of 02:29:00 [facility] CT STROKE ANGIOGRAM HEAD 2022-04-13 Sapna Vargas [facility] ersity of 18:40:00 [facility] CT STROKE ANGIOGRAM NECK 2022-04-[address] [facility] ersity of 18:40:00 [facility] CT STROKE HEAD WO CONTRAST 2022-04-13 Sapna Vargas Un iversity of 18:36:00 [facility] TROPONIN I 2022-04-13 Sapna Vargas [facility] 18:17:00 [facility] THYROID STIMULATING HORMONE 2022-04-13 Harshil [facility] ersity of 18:17:00 [facility] BASIC METABOLIC PANEL (NA, K, 2022-04-13 Sapna Vargas [facility] CL, CO2, GLUCOSE, BUN, 18:17:00 [facility] ical CREATININE, CA) Branch LIPID PANEL (51004)(TOTAL 2022-04-13 [facility] sity of CHOLESTEROL, TRIGLYCERIDES, 18:17:00 [facility] HDL) Branch CBC WITHOUT DIFF 2022-04-13 Sapna Vargas [place] f 18:17:00 [facility] GLYCOSYLATED HEMOGLOBIN (A1C) 2022-04-13 John Chuaena Un iversity of 18:17:00 [facility] PROTHROMBIN TIME / INR 2022-04-13 Sapna Vargas [facility] sity of 18:17:00 [facility] ACTIVATED PARTIAL THRMPLAS 2022-04-13 Sapna Vargas iversity of DAVID 18:17:00 [facility] COVID-19 (ID NOW RAPID 2022-04-13 Sapna Vargas [facility] sity of TESTING) 18:17:00 [facility] LAB ONLY COVID INTERPRETATION 2022-04-13 Sapna Vargas [facility] 18:17:00 [facility] HB ECG ROUTINE & RHYTHM STRIP 2022-04-13 Sapna Vargas [facility] 18:15:49 [facility] CONSENT/REFUSAL FOR DIAGNOSIS 2022-04-13 Doctor Unassigned, [place] of AND TREATMENT 18:05:14 [place] [facility] HOSPITAL ADMISSION 2022-04-13 Doctor Unassigned, [facility] 05:01:00 [place] [facility] SARS-COV-2 COVID-19 VACCINE 2022-02-19 Doctor Unassigned, U niversity of 12 YRS+,0.3ML,IM (PFIZER - 15:21:12 [place] [facility]) Branch URINE DRUG (IMMUNOASSAY) - 2021-11-23 Nichelle Allison U niversity of COMPREHENSIVE DRUG SCREEN W/O [place] [facility] HEAD WO CONTRAST 2021-11-23 Ajkaiser [facility] ty of 20:58:00 [facility] POCT TEST 2021-11-23 Ajkaiser [facility] ty of 20:46:00 [facility] URINALYSIS 2021-11-23 [facility] o f 20:43:00 [facility] LIPASE [facility] 20:27:00 [facility] TROPONIN I 2021-11-23 [facility] o f 20:27:00 [facility] COMP. METABOLIC PANEL ([id number]) 2021-11-23 [facility] of 20:27:00 [facility] CBC WITH DIFF 2021-11-23 [facility] o f 20:27:00 [facility] POCT GLUCOSE (AUTOMATED) 2021-11-23 Doctor Unassigned, Univ ersity of 20:15:00 [place] [facility] SARS-COV-2 COVID-19 2021-05-24 Doctor Unassigned, Universit y of VACCINE,0.3ML,IM (PFIZER) 14:23:12 [place] [facility] SARS-COV-2 COVID-19 2021-05-03 Doctor Unassigned, Universit y of VACCINE,0.3ML,IM (PFIZER) 14:59:29 [place] [facility] EMERGENCY SERVICES AGREEMENTS 2021-04-16 Doctor Unassigned, University of AND AUTHORIZATIONS 05:01:00 [place] [facility] URINALYSIS 2021-03-17 Fabrice Chakraborty [place] of 03:09:00 [facility] XR CHEST 1 VW 2021-03-17 Fabrice Chakraborty [place] of 01:45:07 [facility] TROPONIN I 2021-03-17 Fabrice Chakraborty [place] of 01:35:00 [facility] COMP. METABOLIC PANEL (21675) 2021-03-17 Fabrice Chakraborty iversity of 01:35:00 [facility] CBC WITH DIFF 2021-03-17 [facility] [place] [facility] 01:35:00 [facility] N-TERMINAL PRO-BNP 2021-03-17 Fabrice Chakraborty [place] of 01:35:00 [facility] COVID-19 (ID NOW RAPID 2021-03-17 rBian Ray [facility] y of TESTING) 00:58:00 [facility] CONSENT/REFUSAL FOR DIAGNOSIS 2021-03-17 Doctor Unassigned, [facility] AND [facility] 00:32:59 [place] [facility] COVID-19 (ID NOW RAPID 2021-02-19 Anali Patel [facility] y of TESTING) 17:04:[address] [facility] [address] ABDOMEN PELVIS W CONTRAST 2021-02-19 Anali Patel Uni versity of 16:41:18 [facility] LIPASE 2021-02-19 Anali Patel [place] of 15:58:00 [facility] COMP. METABOLIC PANEL (82756) 2021-02-19 Anali Patel Un iversity of 15:58:00 [facility] CBC WITH DIFF 2021-02-19 Anali Patel [facility] 15:58:00 [facility] URINALYSIS 2021-02-19 Anali Patel [facility] 15:58:00 [facility] NOTICE OF PRIVACY PRACTICES 2021-02-19 Doctor Unassigned, U niversity of 15:30:46 [place] [facility] CONSENT/REFUSAL FOR DIAGNOSIS 2021-02-19 Doctor Unassigned, [facility] AND [facility] 15:30:30 [place] [facility] Plan of Care Planned Activity Planned Date Details Comments Source Goal Plan of Care Note [code = 06822-4] Goal Plan of Care Note [code = 85088-2] Goal Plan of Care Note [code = 18135-9] Goal Plan of Care Note [code = 62681-8] Goal Plan of Care Note [code = 99574-3] Goal Plan of Care Note [code = 07109-5] Goal Plan of Care Note [code = 74490-1] Goal Plan of Care Note [code = 15579-0] Goal Plan of Care Note [code = 86332-2] Goal Plan of Care Note [code = 47021-8] Goal Plan of Care Note [code = 36346-7] Goal Plan of Care Note [code = 66395-3] Goal Plan of Care Note [code = 68934-2] Goal Plan of Care Note [code = 91006-4] Goal Plan of Care Note [code = 08103-5] Encounters Start End Encounter Admission Attending Care Care Encounter Source Date/Time Date/Time Type Type Clinicians Facility Department ID 2021-05-20 Emergency [facility] [id number] Univers 18:48:04 ity [facility] 2021-05-20 Emergency [facility] [id number] Univers 12:43:40 ity [facility] 2022-05-23 2022-05-23 Outpatient SFA SFA [id number] Adria 14:51:01 14:51:01 1104 F Mauricio 2022-05-23 2022-05-23 Outpatient [id number] 00:00:00 00:00:00 Visit [id number] [id number] 2022-05-04 2022-05-08 Outpatient X CHANTEL MATTHEWS [facility] S [id number] Univers 20:22:00 14:44:00 [facility] 2022-05-04 2022-05-08 Emergency Brandyn Mcfarlane 1.2.840.1 14 [id number] Univers 20:22:00 14:44:00 Chantel Matthews 350.1.13 .10 ity [facility] 4.2.7.2.686 [facility] [id number] [address] 2022-04-13 2022-04-15 Inpatient X [facility] [id number] Univers 13:06:00 15:00:00 [facility] ity [facility] 2022-04-13 2022-04-15 Hospital Sapna Vargas 1.2.84 0.114 [id number] Univers 13:06:00 15:00:00 Encounter Tyrel Glory JC 350. 1.13.10 ity [facility] 4.2.7.2.686 [place] [id number] [address] 2022-02-192022-02-19 Imm/Inj Vaccine, [facility] [place] 1.2.840.114 [id number] Univers 10:20:00 10:30:00 Visit Jose Frederick SURYA 350.1.13.10 [place] [facility] [id number] [facility] [address] 2022-02-19 2022-02-19 Outpatient R JOSE FREDERICK [facility] [id number] Univers 10:20:00 10:20:00 ity of [facility] 2021-11-23 2021-11-23 Emergency X ESTEFANY [facility] ERT [id number] Univers 15:07:00 17:03:00 FOLUSHO ity of [facility] 2021-11-23 2021-11-23 Emergency Sav Rondon [facility] 1.2.840. 114 [id number] Univers 15:07:00 17:03:00 Nichelle Allison F [facility] 350.1.13. 10 ity of [place] 4.2.7.2.686 [facility] [id number] [facility] 084 Branch 2021-11-21 2021-11-21 Outpatient R [facility] [id number] Univers 09:40:00 09:40:00 ity of [facility] 2021-05-24 2021-05-24 Outpatient R JOSE FREDERICK [facility] [id number] Univers 09:30:00 09:30:00 ity of [facility] 2021-05-24 2021-05-24 Imm/Inj Vaccine, [facility] [place] 1.2.840.114 [id number] Univers 08:47:51 08:57:51 Visit Jose Frederick 350.1.13.10 [place] [facility] [id number] [address] 2021-05-03 2021-05-03 Outpatient R JOSE FREDERICK [facility] [id number] Univers 09:40:00 09:59:35 ity of [facility] 2021-05-03 2021-05-03 Imm/Inj Vaccine, [facility] [place] 1.2.840.114 [id number] Univers 09:17:43 09:59:35 Visit Jose Frederick 350.1.13.10 [place]7.2.[place] [phone] [facility] 225 Branch 2021-04-16 2021-04-16 Orders Doctor EWELINA 1.2.840.114 [id number] Univers 00:00:00 00:00:00 Only Unassigned, HO[place] 350.1.13.10 ity of [place] [facility] 4.2.7.2.686 Javier as [id number] [facility] 009 Branch 2021-03-17 2021-03-17 Telephone EWELINA Nava 1.2.185.715 [id number] Univers 00:00:00 00:00:00 Aneatrice HOSEA 350.1.13.10 ity of [facility] 4.2.7.2.686 Javier as [id number] [facility] 019 Branch 2021-03-16 2021-03-16 Emergency Palmer [facility] 1.2.840.114 [id number] Univers 20:08:00 23:24:00 Fabrice Harrell 350.1.13.10 i ty of [place] 4[place]2.7.2.686 [place] [facility] [id number] [facility] 084 Branch 2021-03-14 2021-03-14 Urgent Lydia Desouza [facility] 1.2.840.114 [id number] Univers 18:59:34 20:19:13 Care Unknown, Attending Health 350.1.13.10 ity of [place] 4.2.7.2.686 Javier as Prem?Blea [id number] [address] Medical Office Building 2021-03-14 2021-03-14 Outpatient R UNKNOWN, [facility] [id number] Univers 19:00:00 19:00:00 ATTENDING ity of [facility] 2021-02-19 2021-02-19 Emergency Eliana [facility] 1.2.435.100 [id number] Univers 10:49:00 14:48:00 Anali Harrell 350.1.13.10 i ty [place] 4[place]2.7.2.[place] [id number] [facility] 084 Branch 2019-03-09 2019-03-09 Dick Arcos [facility] 1.2.840.114 [id number] 00:00:00 00:00:00 Yehuda Harrell 350.1.13.10 [place] 4.2.7.2.686 [facility] [phone] [facility] 092 [facility] 2019-03-09 2019-03-09 Dick Arcos [facility] 1.2.840.114 [id number] [facility] 00:00:00 00:00:00 Yehuda Harrell 350.1.13.10 ity of [place] 4.2.7.2.686 [facility] [id number] [place] [id number] [facility] Results Test Description Test Time Test Comments Results Result Comments Source BASIC METABOLIC PANEL (NA, K, CL, CO2, GLUCOSE, BUN, 2022-04 06:37:01 CREATININE, CA) Test Item Value Reference Range Interpretation Comme nts NA (test code = 0675036593) 137 mmol/L 135-145 K (test code = 6757284312) 3.8 mmol/L 3.5-5 CL (test code = 5619902173) 103 mmol/L 98-108 CO2 TOTAL (test code = 1495040560) 24 mmol/L 23-31 AGAP (test code = 0946374097) 2-16 BUN (test code = 4077089158) 13 mg/dL 7-23 GLUCOSE (test code = 7156899627) 90 mg/dL 70-110 CREATININE (test code = 0.69 mg/dL 0.5-1.04 3024697346) CALCIUM (test code = 9059326792) 8.5 mg/dL 8.6-10.6 L eGFR (test code = 7483575666) mL/min/1.73m2 LYNDSAY (test code = LYNDSAY) Association of Glomerular Filtration Rate (GFR) and Staging of Kidney Disease* + +-------- + ------+| GFR (mL/min/1.73 m2) ?| With Kidney Damage ?| ?Without Kidney Damage+ +-- + +| ?>90 ?| ?Stage one ?| ? Normal ?+ +------- + -------+| ?60-89 ?| ?Stage two ?| ? Decreased GFR ? + +-------- + ------+| ?30-59 ?| ?Stage three ?| ? Stage three ? + +-------- + ------+| ?15-29 ?| ?Stage four ? | ? Stage four ?+ +------- + -------+| ?<15 (or dialysis) ? ?| ?Stage five ? | ? Stage five ?+ +------- + -------+ *Each stage assumes the associated GFR [...] or abnormalities in imaging tests). Lab Interpretation (test code = Abnormal 08892-0) [facility]37:01 Test Item Value Reference Range Interpretation Comments MAGNESIUM (test code = 1489959520) 2.1 mg/dL 1.7-2.4 Lab Interpretation (test code = Normal 01642-0) [facility] 06:37:01 Test Item Value Reference Range Interpretation Comments PHOSPHORUS (test code = 3881116601) 4.7 mg/dL 2.5-5 Lab Interpretation (test code = Normal 94894-9) [facility] WITH [id number] 06:11:54 Test Item Value Reference Range Interpretation Comments WBC (test code = See_Comment [Automated 3920-2) message] The sy stem which generated this result transmitted reference range : 4.30 - 11.10 10*3/?L. The reference range was not used to interpret this result as normal/abnormal . RBC (test code = See_Comment [Automated 165-6) message] The sy stem which generated this result transmitted reference range : 3.93 - 5.25 10*6/?L. The reference range was not used to interpret this result as normal/abnormal . HGB (test code = 12.5 g/dL 11.6-15 718-7) HCT (test code = 38.6 % 35.7-45.2 4544-3) MCV (test code = 85.0 fL 80.6-95.5 787-2) MCH (test code = 27.5 pg 25.9-32.8 785-6) MCHC (test code = 32.4 g/dL 31.6-35.1 786-4) RDW-SD (test code = 51.0 fL 39-49.9 H 62425-9) RDW-CV (test code = 16.5 % 12-15.5 H 788-0) PLT (test code = See_Comment H [Automated 777-3) message] The sy stem which generated this result transmitted reference range : 166 - 358 10*3/ ?L. The reference r zoe was not used to interpret this result as normal/abnormal . MPV (test code = 8.3 fL 9.5-12.9 L 95712-6) NRBC/100 WBC (test See_Comment [Automat ed code = 4104744522) message] The system which generated this result transmitted reference range : 0.0 - 10.0 /100 WBCs. The refer ence range was not u sed to interpret th is result as normal/abnormal . NRBC x10^3 (test code See_Comment [Auto mated = 9383555633) message] The s ystem which generated this result transmitted reference range : 10*3/?L. The reference range was not used to interpret this result as normal/abnormal . GRAN MAT (NEUT) % 64.5 % (test code = 770-8) IMM GRAN % (test code 0.50 % = 9837459221) LYMPH % (test code = 27.1 % 736-9) MONO % (test code = 6.6 % 5905-5) EOS % (test code = 0.6 % 713-8) BASO % (test code = 0.7 % 706-2) GRAN MAT x10^3(ANC) 5.28 10*3/uL 1.88-7.09 (test code = 3258811646) IMM GRAN x10^3 (test 0.04 10*3/uL 0-0.06 code = 4231312516) LYMPH x10^3 (test code 2.22 10*3/uL 1.32-3.29 = 731-0) MONO x10^3 (test code 0.54 10*3/uL 0.33-0.92 = 742-7) EOS x10^3 (test code = 0.05 10*3/uL 0.03-0.39 711-2) BASO x10^3 (test code 0.06 10*3/uL 0.01-0.07 = 704-7) Lab Interpretation Abnormal (test code = 55851-0) [facility]2022-05-07 01:18:10 Test Item Value Reference Range Interpretation Comments POCT GLU (test code = 1303779105) 120 mg/dL 70-110 H Lab Interpretation (test code = Abnormal 49553-5) [facility] Screen - ONCE [id number] 05:46:35 Test Item Value Reference Range Interpretation Comments ABO & RH (test code O POSITIVE Performe d at [facility] = 20) Laboratory Serv [facility] Blood Bank3 [facility] s [address]Pxqh Free: [phone] A No. [id number] IAT (test code = Negative Performed a t [facility] 1185) Laboratory Serv [facility] Blood Bank3 [facility] s [address]Vjeo Free: [phone] A No. [id number] [facility] (NA, K, CL, CO2, GLUCOSE, BUN, CREATININE, CA)2022-05-05 08:22:57 Test Item Value Reference Range Interpretation Comments NA (test code = 136 mmol/L 135-145 8852425326) K (test code = 4.9 mmol/L 3.5-5 6190052434) CL (test code = 108 mmol/L 98-108 9018881007) CO2 TOTAL (test code = 22 mmol/L 23-31 L 9544429588) AGAP (test code = 2-16 5777675522) BUN (test code = 12 mg/dL 7-23 4236186386) GLUCOSE (test code = 155 mg/dL 70-110 H 8358622803) CREATININE (test code = 0.63 mg/dL 0.5-1.04 5654268714) CALCIUM (test code = 8.4 mg/dL 8.6-10.6 L 5821509652) eGFR (test code = mL/min/1.73m2 2002060213) LYNDSAY (test code = LYNDSAY) Association of [...] tests). Lab Interpretation Abnormal (test code = 79663-7) [facility] / [id number] 08:22:37 Test Item Value Reference Range Interpretation Comments PROTIME PATIENT (test See_Comment [Auto mated message] code = 5964-2) The system [employer] generated this result transmitted ref erence range: 10.1 - 1 2.6 Seconds. The re ference range was not u sed to interpret this result as normal/abnor mal. INR (test code = 6301-6) Nor mal INR <1.1; Warfarin Therap eutic range 2.0 to 3. 0 or 2.5 to 3.5, dep ending upon the indica tions. Lab Interpretation (test Normal code = 81366-0) [facility]17 08:22:37 Test Item Value Reference Range Interpretation Comments APTT Patient (test code = See_Comment [ Automated message] 3173-2) The system whic h generated this result transmitted ref erence range: 26 - 36 Seconds. The re ference range was not u sed to interpret this result as normal/abnor mal. Lab Interpretation (test Normal code = 45524-5) [facility]2022-[facility]-17 08:22:37 Test Item Value Reference Range Interpretation Comments Fibrinogen (test code = 6621543484) 294 mg/dL 167-453 Lab Interpretation (test code = Normal 34920-3) [facility] WITH [id number] 08:15:01 Test Item Value Reference Range Interpretation Comments WBC (test code = See_Comment [Automated 8290-2) message] The sy stem which generated this result transmitted reference range : 4.30 - 11.10 10*3/?L. The reference range was not used to interpret this result as normal/abnormal . RBC (test code = See_Comment [Automated 499-8) message] The sy stem which generated this result transmitted reference range : 3.93 - 5.25 10*6/?L. The reference range was not used to interpret this result as normal/abnormal . HGB (test code = 12.4 g/dL 11.6-15 718-7) HCT (test code = 39.4 % 35.7-45.2 4544-3) MCV (test code = 87.4 fL 80.6-95.5 787-2) MCH (test code = 27.5 pg 25.9-32.8 785-6) MCHC (test code = 31.5 g/dL 31.6-35.1 L 786-4) RDW-SD (test code = 52.9 fL 39-49.9 H 10321-9) RDW-CV (test code = 16.8 % 12-15.5 H 788-0) PLT (test code = See_Comment H [Automated 777-3) message] The sy stem which generated this result transmitted reference range : 166 - 358 10*3/ ?L. The reference r zoe was not used to interpret this result as normal/abnormal . MPV (test code = 8.3 fL 9.5-12.9 L 56868-6) NRBC/100 WBC (test See_Comment [Automat ed code = 3940112796) message] The system which generated this result transmitted reference range : 0.0 - 10.0 /100 WBCs. The refer ence range was not u sed to interpret th is result as normal/abnormal . NRBC x10^3 (test code See_Comment [Auto mated = 8414039488) message] The s ystem which generated this result transmitted reference range : 10*3/?L. The reference range was not used to interpret this result as normal/abnormal . GRAN MAT (NEUT) % 86.4 % (test code = 770-8) IMM GRAN % (test code 0.40 % = 9312109241) LYMPH % (test code = 11.7 % 736-9) MONO % (test code = 1.1 % 5905-5) EOS % (test code = 0.0 % 713-8) BASO % (test code = 0.4 % 706-2) GRAN MAT x10^3(ANC) 6.36 10*3/uL 1.88-7.09 (test code = 6950448786) IMM GRAN x10^3 (test 0.03 10*3/uL 0-0.06 code = 2929550813) LYMPH x10^3 (test code 0.86 10*3/uL 1.32-3.29 L = 731-0) MONO x10^3 (test code 0.08 10*3/uL 0.33-0.92 L = 742-7) EOS x10^3 (test code = 0.03-0.39 L 711-2) BASO x10^3 (test code 0.03 10*3/uL 0.01-0.07 = 704-7) Lab Interpretation Abnormal (test code = 75635-8) [facility], [id number] 20:14:03 Test Item Value Reference Range Interpretation Comments VIT D 25OH (test code = 22 ng/mL 25-80 L 87677-3) LYNDSAY (test code = LYNDSAY) Deficiency: <20 ng/mLInsufficiency: 20-24 ng/mLOptimal: 25-80 ng/mL Lab Interpretation (test Abnormal code = 62389-5) [facility] METABOLIC PANEL (NA, K, CL, CO2, GLUCOSE, BUN, CREATININE, CA)2022-04-15 11:27:57 Test Item Value Reference Range Interpretation Comments NA (test code = 138 mmol/L 135-145 4661742154) K (test code = 3.9 mmol/L 3.5-5 6829104678) CL (test code = 106 mmol/L 98-108 9653061898) CO2 TOTAL (test code = 23 mmol/L 23-31 3705621760) AGAP (test code = 2-16 4545082535) BUN (test code = 10 mg/dL 7-23 8963311924) GLUCOSE (test code = 91 mg/dL 70-110 8133503070) CREATININE (test code = 0.65 mg/dL 0.5-1.04 4115891517) CALCIUM (test code = 8.1 mg/dL 8.6-10.6 L 7302678227) eGFR (test code = mL/min/1.73m2 6085836971) LYNDSAY (test code = LYNDSAY) Association of [...] tests). Lab Interpretation Abnormal (test code = 28312-2) [facility] Protocol - Transthoracic echo (TTE) 2022-04-14 22:07:33 Test Item Value Reference Range Interpretation Comments Height (test code = in 5704060680) Weight (test code = lbs 1073664882) Systolic BP (test code = mmHg 9490207492) Diastolic BP (test code mmHg = 7568577725) Heart Rate (test code = bpm 6448189793) BSA (test code = 1.94 m2 7802784739) TASV (test code = 15.5 cm/s 1552889705) LVIDD (test code = 6.00 cm 9783898949) Left Ventricular End 183.0 mL Diastolic Volume by Teichholz Method (test code = 7598534) IVS (test code = 1.09 cm 0193793406) Interventricular Septum 1.09 cm Diastolic Thickness by 2D (test code = 4247741) LVPWD (test code = 0.94 cm 4644336904) PW (test code = 0.94 cm 0.6-1.2 5419695715) EF(Teich) (test code = 40.30 % 5284883496) LVIDS (test code = 4.80 cm 3025433169) Left Ventricular End 109.2 mL Systolic Volume by Teichholz Method (test code = 7600435) FS (test code = 20 % 3655076678) EF - 2D (test code = 40.30 % 38084304) LVOT diameter (test code 2.05 cm = 3184755747) LVOT area (test code = 3.30 cm2 5936761362) Ao root diam (test code 3.10 cm = 5729815600) Aortic root (test code = 3.1 cm 1369032172) Ao root annulus (test 3.1 cm code = 3373157871) LA size (test code = 4.2 cm 6404309973) LAV(MOD-sp4) (test code 64.90 mL = 3886665448) MV Peak A Evette (test code 115.7 cm/s = 8214007671) E wave decelartion time 0.15 s (test code = 5767159581) MV Peak E Evette (test code 106.2 cm/s = 3823471598) E/A ratio (test code = ratio 6389770008) LVOT stroke volume (test 48.30 cm3 code = 7349526873) LVOT peak evette (test code 78.4 cm/s = 5331266981) LVOT mn grad (test code mmHg = 7048978821) AV LVOT peak gradient mmHg (test code = 9709657249) LVOT peak VTI (test code 14.7 cm = 5509538837) LV V1 mean (test code = 51.40 cm/s 4175762383) Ao peak evette (test code = 154.7 cm/s 1808720598) AV area peak evette (test 1.7 cm2 code = 4659377800) Ao max PG (test code = 9.60 mm[Hg] 9834550630) AV peak gradient (test mmHg code = 7080103623) AV regurgitation 257.3 ms pressure 1/2 time (test code = 5606840345) AI dec slope (test code 498.10 cm/s2 = 6201156397) AI max evette (test code = 437.60 cm/s 0474624311) AI max PG (test code = 77.80 mm[Hg] 9051766146) Tapse (test code = 2.19 cm 9579223762) LA Volume Index (BP) 32.0 mL/m2 (test code = 6665624317) LA volume (BP) (test 62.1 mL code = 3805305833) LAV(MOD-sp2) (test code 52.70 mL = 9541070047) A4C EF (test code = 44.80 % 9178705484) EF(sp4-el) (test code = 45.20 % 0670861481) SV(MOD-sp4) (test code = 71.20 mL 0649245523) SV(sp4-el) (test code = 73.90 mL 6015352163) LV Diastolic Volume (BP) 146.3 mL (test code = 9559223741) A2C EF (test code = 52.00 % 7540405029) EF(MOD-bp) (test code = 46.70 % 6784421970) EF(sp2-el) (test code = 52.40 % 1031710143) LV Systolic Volume (BP) 77.9 mL (test code = 6875025587) SV(MOD-bp) (test code = 68.40 mL 3209294335) SV(MOD-sp2) (test code = 69.20 mL 7870788403) EF (test code = 9486551104) Left Ventricular Stroke 68.4 mL Volume by 2-D Biplane-MOD (test code = 7521799) Radiology Study observation (narrative) (test code = 82821-0) LYNDSAY (test code = LYNDSAY) ?Left?Ventricle: Left [...] agent used and saline contrast was performed. [facility]14 16:48:36 Test Item Value Reference Range Interpretation Comments KEPPRA (test code = 12-46 L 4545832143) LYNDSAY (test code = LYNDSAY) Therapeutic range: 12-46 ?g/mL ? ?Toxic: Not well established.Test developed and characteristics determined by [facility] Laboratory Services. Lab Interpretation Abnormal (test code = 98795-4) [facility] Metabolic Panel (Na, K, Cl, CO2, Glucose, BUN, Creatinine, Ca)2022-04-14 10:50:11 Test Item Value Reference Range Interpretation Comments NA (test code = 136 mmol/L 135-145 0788315747) K (test code = 3.8 mmol/L 3.5-5 0367887675) CL (test code = 105 mmol/L 98-108 4015460164) CO2 TOTAL (test code = 25 mmol/L 23-31 7650373128) AGAP (test code = 2-16 6828676870) BUN (test code = 9 mg/dL 7-23 5413040553) GLUCOSE (test code = 101 mg/dL 70-110 5920775743) CREATININE (test code = 0.66 mg/dL 0.5-1.04 9793425414) CALCIUM (test code = 8.1 mg/dL 8.6-10.6 L 4520058405) eGFR (test code = mL/min/1.73m2 2552975837) LYNDSAY (test code = LYNDSAY) Association of [...] tests). Lab Interpretation Abnormal (test code = 00739-0) [facility] HospitalMagensium, [id number] 10:50:11 Test Item Value Reference Range Interpretation Comments MAGNESIUM (test code = 9585123283) 1.9 mg/dL 1.7-2.4 Lab Interpretation (test code = Normal 09992-6) [facility] HospitalThyroid Stimulating [id number] 22:21:44 Test Item Value Reference Range Interpretation Comments TSH (test code = See_Comment Biotin has been 7962533916) reported to cau se a negative bias, interpret resul ts relative to autumn garcia's use of biotin. [Automated mess age] The system [employer] generated this result transmitted ref erence range: 0.45 - 4 .70 mIU/L. The refe rence range was not u sed to interpret this result as normal/abnor mal. Lab Interpretation (test Normal code = 71496-2) [facility] HospitalGLYCOSYLATED HEMOGLOBIN (A1C)2022-04-13 21:53:43 Test Item Value Reference Range Interpretation Comments HGB A1C (test code = 5.8 % 4-5.7 H 4548-4) LYNDSAY (test code = LYNDSAY) Reference RangesNormal: <5.7%Prediabetes: 5.7 - 6.4%Diabetes: > 6.5% Lab Interpretation (test Abnormal code = 63510-5) [facility] HospitalFASTING LIPID PANEL (82095)(TOTAL CHOLESTEROL, TRIGLYCERIDES, HDL)2022-04-13 21:34:53 Test Item Value Reference Range Interpretation Comments CHOL (test code = 201 mg/dL 120-200 H 6962924238) HDL (test code = 56 mg/dL See_Comment [Automated message] 9268352219) The system [employer] generated this result transmit sherice reference range : >=50. The refer ence range was not u sed to interpret th is result as normal/abnormal . HDLC RATIO (test code = See_Comment [Au tomated message] 2613496742) The system [employer] generated this result transmit sherice reference range : <=4.5. The refe rence range was not u sed to interpret th is result as normal/abnormal . TRIG (test code = 355 mg/dL 30-170 H 8019687387) LDL CHOL (test code = 74 mg/dL See_Comment [Auto mated message] 31357-6) The system [employer] generated this result transmit sherice reference range : <=160. The refe rence range was not u sed to interpret th is result as normal/abnormal . VLDL (test code = 71 mg/dL 5-60 H 0518120319) Lab Interpretation (test Abnormal code = 14753-2) [facility] HospitalTroponin I - Code [id number] 18:46:27 Test Item Value Reference Interpretation Comments Range TROPONIN I (test 0.013 ng/mL See_Comment [Automated code = 4049344096) message] The system which generated this result [...] biotin. Lab Interpretation Normal (test code = 53172-4) [facility] Metabolic Panel (NA, K, CL, CO2, Glucose, BUN, Creatinine, CA) - Code [id number] 18:35:07 Test Item Value Reference Range Interpretation Comments NA (test code = 136 mmol/L 135-145 5079486924) K (test code = 4.3 mmol/L 3.5-5 3444969448) CL (test code = 105 mmol/L 98-108 7270152703) CO2 TOTAL (test code = 27 mmol/L 23-31 6598380644) AGAP (test code = 2-16 3348927483) BUN (test code = 8 mg/dL 7-23 9259925609) GLUCOSE (test code = 130 mg/dL 70-110 H 9446263962) CREATININE (test code = 0.75 mg/dL 0.5-1.04 2231281280) CALCIUM (test code = 8.5 mg/dL 8.6-10.6 L 9497361467) eGFR (test code = mL/min/1.73m2 0744436359) LYNDSAY (test code = LYNDSAY) Association of [...] tests). Lab Interpretation Abnormal (test code = 64214-7) [facility] HospitalaPTT - Code [id number] 18:32:46 Test Item Value Reference Range Interpretation Comments APTT Patient (test See_Comment [Automat ed code = 3173-2) message] The system which generated this result transmitted reference range : 23 - 38 Seconds . The reference range was not used to interpr et this result as normal/abnormal . LYNDSAY (test code = LYNDSAY) The [facility] patient population mean normal value for aPTT is 30 seconds. Lab Interpretation Normal (test code = 40070-7) [facility] HospitalProthrombin Time / INR - Code [id number] 18:30:45 Test Item Value Reference Range Interpretation Comments PROTIME PATIENT (test See_Comment [Auto mated message] code = 5964-2) The system [employer] generated this result transmitted ref erence range: 12.0 - 1 4.7 Seconds. The re ference range was not u sed to interpret this result as normal/abnor mal. INR (test code = 6301-6) Nor mal INR <1.1; Warfarin Therap eutic range 2.0 to 3. 0 or 2.5 to 3.5, dep ending upon the indica tions. Lab Interpretation (test Normal code = 92248-5) [facility] HospitalCBC without Diff - Code [id number] 18:23:07 Test Item Value Reference Range Interpretation Comments WBC (test code = 6690-2) See_Comment [A utomated message] The system [employer] h generated this result transmit sherice reference range : 4.30 - 11.10 10*3/?L. The reference range was not used to interpret this result as normal/abnormal . RBC (test code = 789-8) See_Comment [Au tomated message] The system [employer] generated this result transmit sherice reference range : 3.93 - 5.25 10* [...] See_Comment H [Au tomated message] The system [employer] generated this result transmit sherice reference range : 166 - 358 10*3/?L. The reference range was not used to interpret this result as normal/abnormal . MPV (test code = 8.1 fL 9.5-12.9 L 19318-4) RDW-CV (test code = 16.1 % 12-15.5 H 788-0) RDW-SD (test code = 49.2 fL 39-49.9 75671-2) NRBC x10^3 (test code = See_Comment [Au tomated message] 6745963558) The system [employer] generated this result transmit sherice reference range : 10*3/?L. The reference range was not used to interpret this result as normal/abnormal . NRBC/100 WBC (test code See_Comment [Au tomated message] = 9415616715) The system [facility] generated this result transmit sherice reference range : 0.0 - 10.0 /100 WBC s. The reference r zoe was not used to interpret this result as normal/abnormal . IPF % (test code = 6150012297) Lab Interpretation (test Abnormal code = 03549-2) [facility] HospitalTRVIKI [id number] 21:06:40 Test Item Value Reference Interpretation Comments Range TROPONIN I (test 0.005 ng/mL See_Comment [Automated code = 1446497633) message] The system which generated this result [...] biotin. Lab Interpretation Normal (test code = 69638-7) [facility]. METABOLIC PANEL (54070)2021-11-23 20:55:42 Test Item Value Reference Range Interpretation Comments NA (test code = 137 mmol/L 135-145 0765231519) K (test code = 4.3 mmol/L 3.5-5.0 2529545990) CL (test code = 104 mmol/L 98-108 7755254726) CO2 TOTAL (test code = 22 mmol/L 23-31 L 8661290475) AGAP (test code = 2-16 7460578079) BUN (test code = 15 mg/dL 7-23 4178355811) GLUCOSE (test code = 114 mg/dL 70-110 H 3952022450) CREATININE (test code = 0.68 mg/dL 0.50-1.04 1237792917) TOTAL BILI (test code = 0.5 mg/dL 0.1-1.3 5743732238) CALCIUM (test code = 9.1 mg/dL 8.6-10.6 8104176051) T PROTEIN (test code = 7.3 g/dL 6.3-8.2 3257586237) ALBUMIN (test code = 4.4 g/dL 3.5-5.0 7932809034) ALK PHOS (test code = 243 U/L 34-122 H 3530311128) ALTv (test code = 24 U/L 5-35 1742-6) AST(SGOT) (test code = 30 U/L 13-40 2345536067) eGFR (test code = mL/min/1.73m2 0410652810) LYNDSAY (test code = LYNDSAY) Association of [...] tests). Lab Interpretation Abnormal (test code = 73400-4) [facility] HospitalLIPASE2022-05-07 20:55:22 Test Item Value Reference Range Interpretation Comments LIPASE (test code = 2148935058) 96 U/L 0-220 Lab Interpretation (test code = Normal 48910-3) [facility] HospitalPOCT [id number] 20:46:00 Test Item Value Reference Range Interpretation Comments POCT PREG (test code = 1605) negative On board controls acceptable with present C Line (test code = 3574) POCT PREG LOT # (test code = 3575) [id number] POCT PREG TEST DATE (test 04/18/2023 code = 3576) Lab Interpretation (test code = Normal 05257-7) [facility] WITH [id number] 20:40:38 Test Item Value Reference Range Interpretation [...] (test code = 53.7 fL 39.0-49.9 H 10179-4) RDW-CV (test code = 17.2 % 12.0-15.5 H 788-0) PLT (test code = See_Comment H [Automated 777-3) message] The sy stem which generated this result transmitted reference range : 166 - 358 10*3/ ?L. The reference r zoe was not used to interpret this result as normal/abnormal . MPV (test code = 8.5 fL 9.5-12.9 L 41256-1) NRBC/100 WBC (test See_Comment [Automat ed code = 8596490206) message] The system which generated this result transmitted reference range : 0.0 - 10.0 /100 WBCs. The refer ence range was not u sed to interpret th is result as normal/abnormal . NRBC x10^3 (test code <0.01 See_Comment [Auto mated = 5431640281) message] The s ystem which generated this result transmitted reference range : 10*3/?L. The reference range was not used to interpret this result as normal/abnormal . GRAN MAT (NEUT) % 53.7 % (test code = 770-8) IMM GRAN % (test code 0.90 % = 5668825060) LYMPH % (test code = 32.6 % 736-9) MONO % (test code = 10.1 % 5905-5) EOS % (test code = 1.5 % 713-8) BASO % (test code = 1.2 % 706-2) GRAN MAT x10^3(ANC) 4.98 10*3/uL 1.88-7.09 (test code = 4158226554) IMM GRAN x10^3 (test 0.08 10*3/uL 0.00-0.06 H code = 2803492774) LYMPH x10^3 (test code 3.02 10*3/uL 1.32-3.29 = 731-0) MONO x10^3 (test code 0.94 10*3/uL 0.33-0.92 H = 742-7) EOS x10^3 (test code = 0.14 10*3/uL 0.03-0.39 711-2) BASO x10^3 (test code 0.11 10*3/uL 0.01-0.07 H = 704-7) Lab Interpretation Abnormal (test code = 16282-1) [facility] HospitalPOWA GLUCOSE (AUTOMATED)2021-11-23 20:17:33 Test Item Value Reference Range Interpretation Comments POCT GLU (test code = 111 mg/dL 70-110 H Notifi ed Provider 6296389522) Lab Interpretation (test Abnormal code = 13294-7) [facility] HospitalPA TEST, THINPREP, [id number] 00:00:00 Test Item Value Reference Range Interpretation Comments SOURCE: (test code = Endocervical 8001) SLIDES: (test code = 1 8011) LMP: (test code = 8021) 06/03/2021 SPECIMEN ADEQUACY: (test (NOTE) code = 32921) INTERPRETATION: (test ASCUS/EPITH. code = 68554) ABNORMALITY; SEE BELOW ESTABLISHMENT GUIDE: (test Anusha code = 8101) CHANA Sepulveda(ASCP)IAC PATHOLOGIST Nahid Russell, INTERPRETATION BY: (test M.D. code = 8122) LOCATION: (test code = (NOTE) 52710) CPT: (test code = 8140) (NOTE) PAP TEST, THINPREP, [id number] 00:00:00 Test Item Value Reference Range Interpretation Comments SOURCE: (test code = Endocervical 8001) SLIDES: (test code = 1 8011) LMP: (test code = 8021) 06/03/2021 SPECIMEN ADEQUACY: (test (NOTE) code = 31414) INTERPRETATION: (test ASCUS/EPITH. code = 89091) ABNORMALITY; SEE BELOW ESTABLISHMENT GUIDE: (test Anusha code = 8101) CHANA Sepulveda(ASCP)IAC PATHOLOGIST Nahid Russell, INTERPRETATION BY: (test M.D. code = 8122) LOCATION: (test code = (NOTE) 27519) CPT: (test code = 8140) (NOTE) HPV HIGH RISK WITH GENOTYPE, [id number] 00:00:00 Test Item Value Reference Range Interpretation Comments HPV HIGH RISK INTERP (test code = POSITIVE 00940) HPV 16 (test code = 78835) POSITIVE HPV 18 (test code = 34614) NEGATIVE HPV, HR, OTHER GENOTYPES (test code POSITIVE = 07435) HPV HIGH RISK WITH GENOTYPE, [id number] 00:00:00 Test Item Value Reference Range Interpretation Comments HPV HIGH RISK INTERP (test code = POSITIVE 30474) HPV 16 (test code = 87682) POSITIVE HPV 18 (test code = 65329) NEGATIVE HPV, HR, OTHER GENOTYPES (test code POSITIVE = 37657) [id number] 03:22:48 Test Item Value Reference Range Interpretation Comments APPEARANCE (test code = Hazy Clear A 1639627507) COLOR (test code = Yellow Yellow 5090357232) PH (test code = 4.8-8.0 9632037645) SP GRAVITY (test code = 1.003-1.030 3870287725) GLU U QUAL (test code = Normal Normal 0482859542) BLOOD (test code = Negative Negative Interfere nce from 9123132169) ascorbic acid m ay cause false neg ative results. KETONES (test code = 5 mg/dL Negative A 7980749413) PROTEIN (test code = Negative Negative 2887-8) UROBILIN (test code = 4.0 mg/dL Normal A 3103009051) BILIRUBIN (test code = Negative Negative 7269640204) NITRITE (test code = Negative Negative 9457741023) LEUK GRUPO (test code = Negative Negative 1614616636) RBC/HPF (test code = See_Comment [Autom ated message] 1548206605) The system [employer] generated this result transmitted ref erence range: 0 - 3 HP F. The reference range was not used to int erpret this result as normal/abnormal . WBC/HPF (test code = <1 See_Comment [Autom ated message] 5923565485) The system [employer] generated this result transmitted ref erence range: 0 - 5 HP F. The reference range was not used to int erpret this result as normal/abnormal . BACTERIA (test code = Few Negative A 6145745467) SQ EPITH (test code = HPF 0233431507) Lab Interpretation Abnormal (test code = 86562-2) [facility] HospitalURINALYSIS2021-08-29 03:22:48 Test Item Value Reference Range Interpretation Comments APPEARANCE (test code = Hazy Clear A 7276271751) COLOR (test code = Yellow Yellow 6829867306) PH (test code = 4.8-8.0 5943764987) SP GRAVITY (test code = 1.003-1.030 2507680821) GLU U QUAL (test code = Normal Normal 6090285281) BLOOD (test code = Negative Negative 0634041048) KETONES (test code = 5 mg/dL Negative A 5634991053) PROTEIN (test code = Negative Negative 2887-8) UROBILIN (test code = 4.0 mg/dL Normal A 4900094797) BILIRUBIN (test code = Negative Negative 0601542556) NITRITE (test code = Negative Negative 7747708648) LEUK GRUPO (test code = Negative Negative 8258592774) RBC/HPF (test code = See_Comment [Autom ated message] 8511762694) The system [employer] generated this result transmit sherice reference range : 0 - 3 HPF. The refe rence range was not u sed to interpret th is result as normal/abnormal . WBC/HPF (test code = <1 See_Comment [Autom ated message] 5705928688) The system [employer] generated this result transmit sherice reference range : 0 - 5 HPF. The refe rence range was not u sed to interpret th is result as normal/abnormal . BACTERIA (test code = Few Negative A 1535134946) SQ EPITH (test code = HPF 4567048429) Lab Interpretation (test Abnormal code = 74149-9) [facility] [id number] 02:45:00 Test Item Value Reference Interpretation Comments Range TROPONIN I (test 0.002 ng/mL See_Comment [Automated code = 9903911316) message] The system which generated this result [...] biotin. Lab Interpretation Normal (test code = 32076-6) [facility] [id number] 02:45:00 Test Item Value Reference Range Interpretation Comments TROPONIN I (test code = 0.002 ng/mL See_Comment [Au tomated 2284083403) message] The sy stem which generated this result transmitted reference range : <=0.034. The reference range was not used to interpret this result as normal/abnormal . LYNDSAY (test code = LYNDSAY) Lab Interpretation Normal (test code = 71925-5) [facility] HospitalN-TERMINAL [id number] 02:41:57 Test Item Value Reference Range Interpretation Comments NT-proBNP (test code 169 pg/mL See_Comment H [Autom ated = 0844634250) message] The system which generated this result transmitted reference range : <=125. The reference range was not used to interpret this result as normal/abnormal . LYNDSAY (test code = LYNDSAY) Biotin has been reported to cause a negative bias, interpret results relative to patient's use of biotin. Lab Interpretation Abnormal (test code = 54297-2) [facility]N-TERMINAL [id number] 02:41:57 Test Item Value Reference Range Interpretation Comments NT-proBNP (test code = 169 pg/mL See_Comment H [Aut omated message] 7925055455) The system [employer] generated this result transmit sherice reference range : <=125. The refe rence range was not u sed to interpret th is result as normal/abnormal . LYNDSAY (test code = LYNDSAY) Lab Interpretation (test Abnormal code = 97583-9) [facility] HospitalCOMP. METABOLIC PANEL (79098)2021-03-17 02:09:13 Test Item Value Reference Range Interpretation Comments NA (test code = 137 mmol/L 135-145 6992736033) K (test code = 4.2 mmol/L 3.5-5.0 8217232507) CL (test code = 102 mmol/L 98-108 7432541007) CO2 TOTAL (test code = 25 mmol/L 23-31 6659253807) AGAP (test code = 2-16 6455991696) BUN (test code = 18 mg/dL 7-23 2375081981) GLUCOSE (test code = 144 mg/dL 70-110 H 3466590717) CREATININE (test code = 0.77 mg/dL 0.50-1.04 3992470955) TOTAL BILI (test code = 0.4 mg/dL 0.1-1.2 3250503781) CALCIUM (test code = 8.9 mg/dL 8.6-10.6 5011583785) T PROTEIN (test code = 6.8 g/dL 6.3-8.2 9972295746) ALBUMIN (test code = 3.9 g/dL 3.5-5.0 4353777742) ALK PHOS (test code = 84 U/L 34-122 4342730777) ALTv (test code = 13 U/L 5-35 1742-6) AST(SGOT) (test code = 17 U/L 13-40 1485954792) eGFR (test code = mL/min/1.73m2 9151366156) LYNDSAY (test code = LYNDSAY) Association of [...] tests). Lab Interpretation Abnormal (test code = 34974-5) [facility]. METABOLIC PANEL (89715)2021-03-17 02:09:13 Test Item Value Reference Range Interpretation Comments NA (test code = 6831820023) 137 mmol/L 135-145 K (test code = 0233469839) 4.2 mmol/L 3.5-5.0 CL (test code = 9581225407) 102 mmol/L 98-108 CO2 TOTAL (test code = 3227326440) 25 mmol/L 23-31 AGAP (test code = 4169846627) 2-16 BUN (test code = 4739270114) 18 mg/dL 7-23 GLUCOSE (test code = 4257011648) 144 mg/dL 70-110 H CREATININE (test code = 0.77 mg/dL 0.50-1.04 8554138208) TOTAL BILI (test code = 0.4 mg/dL 0.1-1.9 9009124199) CALCIUM (test code = 6428049099) 8.9 mg/dL 8.6-10.6 T PROTEIN (test code = 2693304478) 6.8 g/dL 6.3-8.2 ALBUMIN (test code = 3687590695) 3.9 g/dL 3.5-5.0 ALK PHOS (test code = 0955434113) 84 U/L 34-122 ALTv (test code = 1742-6) 13 U/L 5-35 AST(SGOT) (test code = 9989111256) 17 U/L 13-40 eGFR (test code = 6571871404) mL/min/1.73m2 LYNDSAY (test code = LYNDSAY) Lab Interpretation (test code = Abnormal 80364-8) [facility] WITH [id number] 01:56:33 Test Item Value Reference Range Interpretation [...] (test code = 55.5 fL 39.0-49.9 H 32368-1) RDW-CV (test code = 18.9 % 12.0-15.5 H 788-0) PLT (test code = See_Comment H [Automated 777-3) message] The sy stem which generated this result transmitted reference range : 166 - 358 10*3/ ?L. The reference r zoe was not used to interpret this result as normal/abnormal . MPV (test code = 8.2 fL 9.5-12.9 L 12943-8) NRBC/100 WBC (test See_Comment [Automat ed code = 4455336540) message] The system which generated this result transmitted reference range : 0.0 - 10.0 /100 WBCs. The refer ence range was not u sed to interpret th is result as normal/abnormal . NRBC x10^3 (test code <0.01 See_Comment [Auto mated = 8724825052) message] The s ystem which generated this result transmitted reference range : 10*3/?L. The reference range was not used to interpret this result as normal/abnormal . GRAN MAT (NEUT) % 61.7 % (test code = 770-8) IMM GRAN % (test code 0.80 % = 7337574732) LYMPH % (test code = 28.5 % 736-9) MONO % (test code = 6.3 % 5905-5) EOS % (test code = 1.8 % 713-8) BASO % (test code = 0.9 % 706-2) GRAN MAT x10^3(ANC) 7.31 10*3/uL 1.88-7.09 H (test code = 1998210446) IMM GRAN x10^3 (test 0.09 10*3/uL 0.00-0.06 H code = 1500682509) LYMPH x10^3 (test code 3.38 10*3/uL 1.32-3.29 H = 731-0) MONO x10^3 (test code 0.75 10*3/uL 0.33-0.92 = 742-7) EOS x10^3 (test code = 0.21 10*3/uL 0.03-0.39 711-2) BASO x10^3 (test code 0.11 10*3/uL 0.01-0.07 H = 704-7) Lab Interpretation Abnormal (test code = 05978-6) [facility] WITH [id number] 01:56:33 Test Item Value Reference Range Interpretation [...] (test code = 55.5 fL 39.0-49.9 H 04224-6) RDW-CV (test code = 18.9 % 12.0-15.5 H 788-0) PLT (test code = See_Comment H [Automated 777-3) message] The sy stem which generated this result transmitted reference range : 166 - 358 10*3/ ?L. The reference r zoe was not used to interpret this result as normal/abnormal . MPV (test code = 8.2 fL 9.5-12.9 L 75996-8) NRBC/100 WBC (test See_Comment [Automat ed code = 8622033710) message] The system which generated this result transmitted reference range : 0.0 - 10.0 /100 WBCs. The refer ence range was not u sed to interpret th is result as normal/abnormal . NRBC x10^3 (test code <0.01 See_Comment [Auto mated = 1200445509) message] The s ystem which generated this result transmitted reference range : 10*3/?L. The reference range was not used to interpret this result as normal/abnormal . GRAN MAT (NEUT) % 61.7 % (test code = 770-8) IMM GRAN % (test code 0.80 % = 6902976010) LYMPH % (test code = 28.5 % 736-9) MONO % (test code = 6.3 % 5905-5) EOS % (test code = 1.8 % 713-8) BASO % (test code = 0.9 % 706-2) GRAN MAT x10^3(ANC) 7.31 10*3/uL 1.88-7.09 H (test code = 8673499992) IMM GRAN x10^3 (test 0.09 10*3/uL 0.00-0.06 H code = 2269715301) LYMPH x10^3 (test code 3.38 10*3/uL 1.32-3.29 H = 731-0) MONO x10^3 (test code 0.75 10*3/uL 0.33-0.92 = 742-7) EOS x10^3 (test code = 0.21 10*3/uL 0.03-0.39 711-2) BASO x10^3 (test code 0.11 10*3/uL 0.01-0.07 H = 704-7) Lab Interpretation Abnormal (test code = 42080-2) [facility]2021-03-17 01:38:12 Test Item Value Reference Range Interpretation Comments SARS-CoV-2 Rapid ID NOW Not Detected Not Detected (test code = 67486-1) LYNDSAY (test code = LYNDSAY) ID NOW COVID-19 Assay is an isothermal nucleic acid amplification test intended for the qualitative detection of nucleic acid from SARS-CoV-2 viral RNA in nasopharyngeal ([employer]IGENCE [employer]NALYST) specimens. It is used under Emergency Use [...] indicated. Lab Interpretation Normal (test code = 44880-9) [facility] (ID NOW RAPID TESTING)2021-03-17 01:38:12 Test Item Value Reference Range Interpretation Comments SARS-CoV-2 Rapid ID NOW (test Not Detected Not Detected code = 73118-4) LYNDSAY (test code = LYNDSAY) Lab Interpretation (test code = Normal 81484-2) [facility] ([facility] NOW [facility]APID TESTING)2021-02-19 17:42:45 Test Item Value Reference Range Interpretation Comments SARS-CoV-2 Rapid ID NOW Not Detected Not Detected (test code = 55991-5) LYNDSAY (test code = LYNDSAY) ID NOW COVID-19 Assay is an isothermal nucleic acid amplification test intended for the qualitative detection of nucleic acid from SARS-CoV-2 viral RNA in nasopharyngeal (COMPETITIVE INTELLIGENCE ANALYST) specimens. It is used under Emergency Use [...] indicated. Lab Interpretation Normal (test code = 96519-5) [facility] HospitalCT [facility] PELVIS W [id number] 17:24:55Thickening of the gastric antrum and duodenal bulb could be fromunderdistention, the differential would include sequela of peptic ulcerdisease. No findings of ulcer perforation. Otherwise, no acute intra- abdominal or pelvic abnormality. Stable thickening and nodularity of the left adrenal gland. RL: [id number] Patient name: EUSEBIA NOTIVEROSB: 1970 51 years EXAMINATION: CT ABDOMEN PELVIS [...] 02/19/2021 12:26 PM CDT Patient name: EUSEBIA TURNERDOB: 1970 51 years EXAMINATION: CT ABDOMEN PELVIS [...] nodularity of the left adrenal gland.RL: 8722 [facility] 17:03:40 Test Item Value Reference Range Interpretation Comments APPEARANCE (test code = Hazy Clear A 5847800702) COLOR (test code = Mabel Yellow A 8242873654) PH (test code = 4.8-8.0 6160179669) SP GRAVITY (test code = 1.003-1.030 H 8700173651) GLU U QUAL (test code = Normal Normal 3570503618) BLOOD (test code = Negative Negative 4283521268) KETONES (test code = 5 mg/dL Negative A 7902305635) PROTEIN (test code = 30 mg/dL Negative A 2887-8) UROBILIN (test code = 4.0 mg/dL Normal A 1172429858) BILIRUBIN (test code = 4 mg/dL Negative A 4225805216) NITRITE (test code = Negative Negative 6976285336) [place]UPO (test code = Negative Negative 4960314899) RBC/HPF (test code = See_Comment H [Autom ated message] 1640595664) The system [employer] generated this result transmit sherice reference range : 0 - 3 HPF. The refe rence range was not u sed to interpret th is result as normal/abnormal . WBC/HPF (test code = See_Comment H [Autom ated message] 9834065406) The system [employer] generated this result transmit sherice reference range : 0 - 5 HPF. The refe rence range was not u sed to interpret th is result as normal/abnormal . BACTERIA (test code = Few Negative A 0481795353) MUCOUS (test code = Moderate Negative LPF A 6957376100) SQ EPITH (test code = HPF 7734283933) CA OXALATE (test code = See_Comment H [Au tomated message] 6786689122) The system [employer] generated this result transmit sherice reference range : <=1 HPF. The refere nce range was not u sed to interpret th is result as normal/abnormal . Ictotest (test code = Negative 7975839590) Lab Interpretation (test Abnormal code = 93534-1) [facility]Complete Metabolic [id number] 16:34:55 Test Item Value Reference Range Interpretation Comments NA (test code = 139 mmol/L 135-145 8749622883) K (test code = 4.3 mmol/L 3.5-5.0 0498446073) CL (test code = 105 mmol/L 98-108 1595183197) CO2 TOTAL (test code 26 mmol/L 23-31 = 7601676402) AGAP (test code = 2-16 4781387421) BUN (test code = 11 mg/dL 7-23 4083648833) GLUCOSE (test code = 95 mg/dL 70-110 6912409769) CREATININE (test code 0.70 mg/dL 0.50-1.04 = 8013273663) TOTAL BILI (test code 0.6 mg/dL 0.1-1.1 = 9403998936) CALCIUM (test code = 8.9 mg/dL 8.6-10.6 6930676354) T PROTEIN (test code 7.7 g/dL 6.3-8.2 = 9695990044) ALBUMIN (test code = 4.1 g/dL 3.5-5.0 1328574123) ALK PHOS (test code = 79 U/L 34-122 3748547873) ALTv (test code = 10 U/L 5-35 1742-6) AST(SGOT) (test code 22 U/L 13-40 = 6075542329) eGFR (test code = mL/min/1.73m2 9250590909) LYNDSAY (test code = LYNDSAY) Association of [...] or urine or abnormalities in imaging tests). [facility] HospitalLipase, [id number] 16:34:14 Test Item Value Reference Range Interpretation Comments LIPASE (test code = 5024073701) 45 U/L 0-220 Lab Interpretation (test code = Normal 69194-9) [facility] HospitalCB with [id number] 16:21:12 Test Item Value Reference Range Interpretation Comments WBC (test code = See_Comment [Automated 0902-2) message] The sy stem which generated this result transmitted reference range : 4.30 - 11.10 10*3/?L. The reference range was not used to interpret this result as normal/abnormal . RBC (test code = See_Comment [Automated 639-5) message] The sy stem which generated this [...] (test code = 54.4 fL 39.0-49.9 H 79896-8) RDW-CV (test code = 18.3 % 12.0-15.5 H 788-0) PLT (test code = See_Comment H [Automated 777-3) message] The sy stem which generated this result transmitted reference range : 166 - 358 10*3/ ?L. The reference r zoe was not used to interpret this result as normal/abnormal . MPV (test code = 8.5 fL 9.5-12.9 L 41452-6) NRBC/100 WBC (test See_Comment [Automat ed code = 7777098364) message] The system which generated this result transmitted reference range : 0.0 - 10.0 /100 WBCs. The refer ence range was not u sed to interpret th is result as normal/abnormal . NRBC x10^3 (test code <0.01 See_Comment [Auto mated = 7914163125) message] The s ystem which generated this result transmitted reference range : 10*3/?L. The reference range was not used to interpret this result as normal/abnormal . GRAN MAT (NEUT) % 78.3 % (test code = 770-8) IMM GRAN % (test code 0.40 % = 7761049282) LYMPH % (test code = 15.4 % 736-9) MONO % (test code = 4.8 % 5905-5) EOS % (test code = 0.1 % 713-8) BASO % (test code = 1.0 % 706-2) GRAN MAT x10^3(ANC) 7.15 10*3/uL 1.88-7.09 H (test code = 7095767893) IMM GRAN x10^3 (test 0.04 10*3/uL 0.00-0.06 code = 7982505602) LYMPH x10^3 (test code 1.41 10*3/uL 1.32-3.29 = 731-0) MONO x10^3 (test code 0.44 10*3/uL 0.33-0.92 = 742-7) EOS x10^3 (test code = <0.03 0.03-0.39 L 711-2) BASO x10^3 (test code 0.09 10*3/uL 0.01-0.07 H = 704-7) Lab Interpretation Abnormal (test code = 27255-7) [facility]"
[2022-06-13 14:55] LABS: Absolute Lymphocytes (CBC) 2.1 K/uL (0.7-4.9); Hematocrit 39.4 % (36.0-45.0); Lymphocytes % 24.5 % (15.3-44.8); MCV 83.6 fL (80-100); MPV 6.3 fL (7.6-11.3); RBC Red Blood Cell Count 4.72 M/uL (3.86-4.86)
[2022-06-13] MEDS ORDERED: NA CHLORIDE 0.9% 1,000 ML ONE (15:03)
[2022-06-13 15:13] LABS: ALT/SGPT 24 U/L (12-78); AST/SGOT 13 U/L (15-37); Albumin 3.6 g/dL (3.4-5.0); Alkaline Phosphatase 90 U/L (45-117); BUN Blood Urea Nitrogen 14 mg/dL (7-18); Bicarbonate 23 mmol/L (21-32); Bilirubin Total 0.2 mg/dL (0.2-1.0); Glomerular Filtration Rate 78 ml/min (=/>90); Glucose Level 120 mg/dL (74-106); Lipase 238 U/L (73-393); Magnesium 2.2 mg/dL (1.8-2.4); Potassium 4.2 mmol/L (3.5-5.1); Protein, Total 7.6 g/dL (6.4-8.2); Sodium Level 139 mmol/L (136-145)
[2022-06-13 15:16] LABS: NT PRO-BNP 1435 pg/mL (<125); Troponin High Sensitivity 23.1 pg/mL (<58.9)
[2022-06-13 15:17] LABS: Bilirubin Direct < 0.1 mg/dL (0-0.2)
[2022-06-13 15:32] LABS: SARS-COV-2 RT PCR NEGATIVE (NEGATIVE)
[2022-06-13] MEDS ORDERED: MORPHINE 4 MG/ML SYR ONE (15:36)
[2022-06-13] MEDS ORDERED: ONDANSETRON 4 MG/2 ML VIAL ONE (15:37)
--- NOTE | 2022-06-13 16:09 | RAD REPORT ---
EXAM DESCRIPTION: Leno Single View06/13/2022 3:34 pm CLINICAL HISTORY: Cough COMPARISON: April 2022 FINDINGS: The lungs appear clear of acute infiltrate. The heart is normal size IMPRESSION: No acute abnormalities displayed
[2022-06-13] MEDS ORDERED: dexAMETHasone 10 MG/ML VIAL ONE (16:16)
[2022-06-13] MEDS ORDERED: DIAZEPAM 5 MG TABLET ONE (16:16)
[2022-06-13] MEDS ORDERED: KETOROLAC 30 MG/ML INJ ONE (16:17)
[2022-06-13] MEDS ORDERED: LEVETIRACETAM 500 MG/5 ML VIAL IV ONE (16:23)
--- NOTE | 2022-06-13 16:51 | ER ---
Nurse's Notes [facility] Name: Heather Coon Age: 52 yrs Sex: Female : 1970 Arrival Date: 06/13/2022 Time: 14:13 Bed 18 Private MD: Diagnosis: Sciatica;Low back pain;Obesity, unspecified Presentation: 06/13 14:32 Chief complaint: Patient states: low back pain that has been ongoing for months. Pt ss reports that she is supposed to have surgery, but is unable to due to insurance changes. Pt is concerned because she is having intermittent numbness to bilateral lower feet. Pt had surgery after signing to ER. Pt states, "my seizures are typically controlled, it's just because I'm hurting so bad.". Coronavirus screen: Client denies travel out of the [place] in the last 14 days. Ebola Screen: Patient denies exposure to infectious person. Patient denies travel to an Ebola-affected area in the 21 days before illness onset. Initial Sepsis Screen: Does the patient meet any 2 criteria? No. Patient's initial sepsis screen is negative. Does the patient have a suspected source of infection? No. Patient's initial sepsis screen is negative. Risk Assessment: Do you want to hurt yourself or someone else? Patient reports no desire to harm self or others. Onset of symptoms is unknown. 14:32 Method Of Arrival: Wheelchair ss 14:32 Acuity: ANDER 3 ss Historical: - Allergies: 14:36 fluoxetine; ss 14:36 Green Tea; ss - PMHx: 14:36 Anxiety; Bipolar disorder; Cancer-Cervical; Chronic pain; Depression; Diverticulitis; ss Herniated Back Disc; Hypertension; intestinal mass; Myocardial infarction; pt reports hx of seizures; Spastic Muscles; stroke; - PSHx: 14:36 cervical fusion; Cholecystectomy; foot; Tonsillectomy; ss - Immunization history:: Client reports receiving the 2nd dose of the Covid vaccine. - Social history:: Smoking status: Patient reports the use of cigarette tobacco products. Screenin:22 Abuse screen: Denies threats or abuse. Denies injuries from another. Nutritional ko1 screening: No deficits noted. Tuberculosis screening: No symptoms or risk factors identified. Fall Risk None identified. Assessment: 15:22 General: Appears in no apparent distress. uncomfortable, Behavior is cooperative, ko1 appropriate for age, crying. Pain: Complains of pain in lumbar area, left low back and right low back. Neuro: Level of Consciousness is awake, alert, obeys commands, Oriented to person, place, time, situation, Motor[employer] are equal bilaterally. Cardiovascular: No deficits noted. Respiratory: No deficits noted. GI: No deficits noted. : No deficits noted. EENT: No deficits noted. Derm: No deficits noted. Musculoskeletal: No deficits noted. Vital Signs: 14:32 BP 174 / 91; Pulse 108; Resp 18; Temp 98.4(O); Pulse Ox 100% ; Height 5 ft. 3 in. ss (160.02 cm); Pain 10/10; 15:25 BP 141 / 103; Pulse 109; Resp 18; Pulse Ox 99% on R/A; ko1 ED Course: 14:13 Patient arrived in ED. as 14:32 Derrick Santillan MD is Attending Physician. [facility] 14:34 Ayanna Willis, RN is Primary Nurse. ko1 14:36 Triage completed. ss 14:36 Arm band placed on right wrist. ss 14:49 Inserted saline lock: 20 gauge in left antecubital area, using aseptic technique. Blood zm collected. 14:49 COVID-19/FLU A+B Sent. zm 14:49 Lipase Sent. zm 14:49 Basic Metabolic Panel Sent. zm 14:49 CBC with Diff Sent. zm 14:49 LFT's Sent. zm 14:49 Magnesium Sent. zm 14:50 NT PRO-BNP Sent. zm 14:50 PT-INR Sent. zm 14:50 Troponin HS Sent. zm 15:22 Patient has correct armband on for positive identification. Bed in low position. Call ko1 light in reach. Side rails up X 1. Client placed on continuous cardiac and pulse oximetry monitoring. NIBP monitoring applied. monitoring engineer on. 15:35 XRAY Chest (1 view) In Process Unspecified. EDMS 16:50 Javier Ireland MD is Referral Physician. fabrice 16:50 Zachariah Oneill MD is Referral Physician. [facility] Administered Medications: 15:03 Drug: NS 0.9% 1000 ml Route: IV; Rate: 125 ml/hr; Site: left antecubital; ko1 15:46 Drug: morphine 4 mg Route: IVP; Infused Over: 4 mins; Site: left antecubital; ko1 15:46 Drug: Zofran (Ondansetron) 4 mg Route: IVP; Site: left antecubital; ko1 16:17 Drug: Decadron - Dexamethasone 10 mg Route: IVP; Site: left antecubital; ko1 16:17 Drug: Valium (diazepam) 10 mg Route: PO; ko1 16:17 Drug: Ketorolac 30 mg Route: IVP; Site: left antecubital; ko1 16:26 Drug: Keppra (levETIRAcetam) 1000 mg Route: IV; Rate: per protocol; Site: left ko1 antecubital; Outcome: 16:51 Discharge ordered by MD. avina 17:50 Patient left the ED. ko1 Signatures: Dispatcher [employer] EDDerrick Norton MD MD cha Martinez, Amelia as Smirch, Shelby, RN RN ss Martinez, Zaina zm Oliver, Kathy, RN RN ko1
--- NOTE | 2022-06-13 16:52 | EDPHYS ---
Physician Documentation [facility] Name: Heather Coon Age: 52 yrs Sex: Female : 1970 Arrival Date: 06/13/2022 Time: 14:13 Bed 18 Private MD: JACKELINE Physician Derrick Santillan HPI: 06/13 16:07 This 52 yrs old Female presents to ER via Wheelchair with complaints of Back fabrice Pain, Numbness, Chest Pain, Trouble Walking. 16:07 The patient presents with pain that is acute, with no known mechanism of injury, that fabrice is chronic, and decreased range of motion. The symptoms are located in the low back, lumbar area. Onset: The symptoms/episode began/occurred 1 day(s) ago. The pain radiates to the left low back and right low back. Associated signs and symptoms: The patient has no apparent associated signs or symptoms. The problem was sustained from unknown cause. Modifying factors: The patient symptoms are alleviated by remaining still, the patient symptoms are aggravated by any movement, bending, lifting, movement. Severity of symptoms: At their worst the symptoms were moderate, in the emergency department the symptoms are unchanged. The patient has experienced similar episodes in the past, multiple times. Historical: - Allergies: 14:36 fluoxetine; ss 14:36 Green Tea; ss - PMHx: 14:36 Anxiety; Bipolar disorder; Cancer-Cervical; Chronic pain; Depression; Diverticulitis; ss Herniated Back Disc; Hypertension; intestinal mass; Myocardial infarction; pt reports hx of seizures; Spastic Muscles; stroke; - PSHx: 14:36 cervical fusion; Cholecystectomy; foot; Tonsillectomy; ss - Immunization history:: Client reports receiving the 2nd dose of the Covid vaccine. - Social history:: Smoking status: Patient reports the use of cigarette tobacco products. ROS: 16:08 Constitutional: Negative for fever, chills, and weight loss, Eyes: Negative for injury, fabrice pain, redness, and discharge, ENT: Negative for injury, pain, and discharge, Neck: Negative for injury, pain, and swelling, Cardiovascular: Negative for chest pain, palpitations, and edema, Respiratory: Negative for shortness of breath, cough, wheezing, and pleuritic chest pain, Abdomen/GI: Negative for abdominal pain, nausea, vomiting, diarrhea, and constipation, : Negative for injury, bleeding, discharge, and swelling, MS/Extremity: Negative for injury and deformity, Skin: Negative for injury, rash, and discoloration, Neuro: Negative for headache, weakness, numbness, tingling, and seizure, Psych: Negative for depression, anxiety, suicide ideation, homicidal ideation, and hallucinations, Allergy/Immunology: Negative for hives, rash, and allergies, Endocrine: Negative for neck swelling, polydipsia, polyuria, polyphagia, and marked weight changes, Hematologic/Lymphatic: Negative for swollen nodes, abnormal bleeding, and unusual bruising. 16:08 Back: Positive for injury or acute deformity, decreased range of motion, pain at rest, pain with movement, of the lumbar area. Exam: 16:08 Constitutional: This is a well developed, well nourished patient who is awake, alert, fabrice and in no acute distress. Head/Face: Normocephalic, atraumatic. Eyes: Pupils equal round and reactive to light, extra-ocular motions intact. Lids and lashes normal. Conjunctiva and sclera are non-icteric and not injected. Cornea within normal limits. Periorbital areas with no swelling, redness, or edema. ENT: Nares patent. No nasal discharge, no septal abnormalities noted. Tympanic membranes are normal and external auditory canals are clear. Oropharynx with no redness, swelling, or masses, exudates, or evidence of obstruction, uvula midline. Mucous membranes moist. Neck: Trachea midline, no thyromegaly or masses palpated, and no cervical lymphadenopathy. Supple, full range of motion without nuchal rigidity, or vertebral point tenderness. No Meningismus. Chest/axilla: Normal chest wall appearance and motion. Nontender with no deformity. No lesions are appreciated. Cardiovascular: Regular rate and rhythm with a normal S1 and S2. No gallops, murmurs, or rubs. Normal PMI, no JVD. No pulse deficits. Respiratory: Lungs have equal breath sounds bilaterally, clear to auscultation and percussion. No rales, rhonchi or wheezes noted. No increased work of breathing, no retractions or nasal flaring. Abdomen/GI: Soft, non-tender, with normal bowel sounds. No distension or tympany. No guarding or rebound. No evidence of tenderness throughout. Pelvic Exam: Normal external genitalia. Speculum exam with closed cervical os, no discharge or bleeding noted. Bimanual exam with normal adnexa, no adnexal or cervical motion tenderness. Normal uterus. Skin: Warm, dry with normal turgor. Normal color with no rashes, no lesions, and no evidence of cellulitis. MS/ Extremity: Pulses equal, no cyanosis. Neurovascular intact. Full, normal range of motion. Neuro: Awake and alert, GCS 15, oriented to person, place, time, and situation. Cranial nerves II-XII grossly intact. Motor strength 5/5 in all extremities. Sensory grossly intact. Cerebellar exam normal. Normal gait. Psych: Awake, alert, with orientation to person, place and time. Behavior, mood, and affect are within normal limits. 16:08 Back: pain, that is mild, that is moderate, ROM is painful, normal spinal alignment noted, CVA tenderness, is absent, vertebral tenderness, is not appreciated, muscle spasm, is appreciated in the left low back, left mid back, right mid back and right low back. 16:15 ECG was reviewed by the Attending Physician. [facility] Vital Signs: 14:32 BP 174 / 91; Pulse 108; Resp 18; Temp 98.4(O); Pulse Ox 100% ; Height 5 ft. 3 in. ss (160.02 cm); Pain 10/10; 15:25 BP 141 / 103; Pulse 109; Resp 18; Pulse Ox 99% on R/A; ko1 MDM: 14:32 Patient medically screened. fabrice 16:09 Differential diagnosis: chronic back pain, Fatigue Fracture Ligament Injury Obesity fabrice Osteoarthritis ruptured disc, Scoliosis spinal injury, sprain, vertebral fracture. Data reviewed: vital signs, nurses notes, lab test result(s), EKG, radiologic studies, CT scan, plain films. Data interpreted: school lunch monitor: rate is 109 beats/min, rhythm is regular, Pulse oximetry: on room air is 99 %. Test interpretation: by ED physician or midlevel provider: ECG, plain radiologic studies. Counseling: I had a detailed discussion with the patient and/or guardian regarding: the historical points, exam findings, and any diagnostic results supporting the discharge/admit diagnosis, lab results, radiology results. 06/13 14:35 Order name: Basic Metabolic Panel; Complete Time: 16:00 [facility] 06/13 14:35 Order name: CBC with Diff; Complete Time: 16:00 [facility] 06/13 14:35 Order name: LFT's; Complete Time: 16:00 [facility] 06/13 14:35 Order name: Magnesium; Complete Time: 16:00 [facility] 06/13 14:35 Order name: NT PRO-BNP; Complete Time: 16:00 [facility] 06/13 14:35 Order name: PT-INR; Complete Time: 16:00 [facility] 06/13 14:35 Order name: Troponin HS; Complete Time: 16:00 [facility] 06/13 14:35 Order name: XRAY Chest (1 view); Complete Time: 16:49 [facility] 06/13 14:35 Order name: Lipase; Complete Time: 16:00 [facility] 06/13 14:35 Order name: COVID-19/FLU A+B; Complete Time: 16:00 [facility] 06/13 14:35 Order name: EKG; Complete Time: 14:35 [facility] 06/13 14:35 Order name: Cardiac monitoring; Complete Time: 14:52 [facility] 06/13 14:35 Order name: EKG - Nurse/Tech; Complete Time: 15:46 [facility] 06/13 14:35 Order name: IV Saline Lock; Complete Time: 14:49 [facility] 06/13 14:35 Order name: Labs collected and sent; Complete Time: 14:49 [facility] 06/13 14:35 Order name: O2 Per Protocol; Complete Time: 14:52 [facility] 06/13 14:35 Order name: O2 Sat Monitoring; Complete Time: 14:52 [facility] 06/13 14:35 Order name: Urine Dipstick-Ancillary (obtain specimen) 06/13 14:35 Order name: Seizure Precautions; Complete Time: 14:49 [facility] EC:15 Rate is 102 beats/min. Rhythm is regular. QRS [place] is Normal. ME interval is normal. [facility] QRS interval is normal. QT interval is normal. No Q waves. T waves are Normal. No ST changes noted. Clinical impression: Sinus tachycardia. Interpreted by me. Reviewed by me. Administered Medications: 15:03 Drug: NS 0.9% 1000 ml Route: IV; Rate: 125 ml/hr; Site: left antecubital; ko1 15:46 Drug: morphine 4 mg Route: IVP; Infused Over: 4 mins; Site: left antecubital; ko1 15:46 Drug: Zofran (Ondansetron) 4 mg Route: IVP; Site: left antecubital; ko1 16:17 Drug: Decadron - Dexamethasone 10 mg Route: IVP; Site: left antecubital; ko1 16:17 Drug: Valium (diazepam) 10 mg Route: PO; ko1 16:17 Drug: Ketorolac 30 mg Route: IVP; Site: left antecubital; ko1 16:26 Drug: Keppra (levETIRAcetam) 1000 mg Route: IV; Rate: per protocol; Site: left ko1 antecubital; Disposition Summary: 06/13/22 16:51 Discharge Ordered Location: Home fabrice Problem: new fabrice Symptoms: have improved fabrice Condition: Stable fabrice Diagnosis - Sciatica fabrice - Low back pain fabrice - Obesity, unspecified fabrice Followup: fabrice - With: Private Physician - When: 2 - 3 days - Reason: Recheck today's complaints, Continuance of care, Re-evaluation by your physician Followup: fabrice - With: - When: 2 - 3 days - Reason: Recheck today's complaints, Re-evaluation by your physician Followup: fabrice - With: - When: 2 - 3 days - Reason: Recheck today's complaints, Re-evaluation by your physician Discharge Instructions: - Acute Back Pain, Adult fabrice - Chronic Back Pain fabrice - Musculoskeletal Pain fabrice - Obesity, Adult fabrice - Back Injury Prevention, Gjbo-mt-Vvzu fabrice - Chronic Back Pain, Hyts-bw-Lwwe fabrice - Discharge Summary Sheet cp Forms: - Medication Reconciliation Form fabrice - Thank You Letter fabrice - Antibiotic Education [facility] - Prescription Opioid Use [facility] Prescriptions: - dexamethasone 2 mg Oral tablet - take 1 tablet by ORAL route 2 times per day for 5 days; 10 tablet; Refills: 0, cp Product Selection Permitted - Ibuprofen 600 mg Oral Tablet - take 1 tablet by ORAL route every 6 hours As needed take with food; 30 tablet; farbice Refills: 0, Product Selection Permitted - Valium 5 mg Oral Tablet - take 1 tablet by ORAL route every 8 hours As needed; 20 tablet; Refills: 0, [facility] Product Selection Permitted - Tylenol-Codeine #3 300 mg-30 mg Oral - take 2 tablet by ORAL route every 6 hours; 20 tablet; Refills: 0, Product [facility] Selection Permitted Signatures: Dispatcher [employer] Derrick Payton MD MD cha Smirch, Shelby RN RN ss Lazaro, Ayanna, RN RN ko1
[2022-06-13 17:54] VITALS: TEMP 98.4
[2022-06-13 17:56] VITALS: BP 141/103; O2SAT 99
--- NOTE | 2022-06-16 12:56 | EKG ---
Test Date: 2022-06-13 Test Time: 16:10:06 Asset Liability Analyst: MEASUREMENT RESULTS: Intervals: Rate: 102 [place]: 132 QRSD: 76 QT: 376 QTc: 490 [place]: P: 58 [place]: 132 QRS: 111 T: 52 INTERPRETIVE STATEMENTS: Sinus tachycardia Right atrial enlargement Right axis deviation Abnormal ECG Compared to ECG 05/04/2022 15:47:59 Atrial abnormality now present T-wave abnormality no longer present Prolonged QT interval no longer present Electronically Signed On 06-16-22 12:51:10 RADIOTELEGRAPH OPERATOR by Saad Leavitt
== END 2022-06-13 17:50 | disposition home or self-care (01) ==
LOC: ER 14:10
DX: M54.30 Sciatica, unspecified side (principal); Z72.0 Tobacco use
CPT/HCPCS: 0240U; 36415; 71045; 80048; 80076; 83690; 83735; 83880; 84484; 85025; 85610; 93005; 96374; 96375; 99284; J1100; J1953; J2405; J7030

== ENCOUNTER 2022-06-25 16:19 | Emergency (ER) | payer SELFPAY ==
--- OUTSIDE RECORDS SUMMARY | 2022-06-25 16:26 | XMS REPORT | Continuity of Care Document ---
:1970 Author Organization [facility] t Address [address] [place] [address] Care Team Providers Name Role Phone Aneta Silva Primary Care Physician [phone] CHANTEL MATTHEWS Attending Clinician Unavailable CHANTEL MATTHEWS Attending Clinician Unavailable Maeve ELIZONDO, Brandyn Otoole Attending Clinician SELINA MARTINES Attending Clinician Unavailable Sapna Vargas DO Attending Clinician Glory Esteves MD Attending Clinician [phone] Selina Martines MD Attending Clinician Vaccine, Leetonia Dangelo Attending Clinician Unavailable Jose Frederick MD Attending Clinician JOSE FREDERICK Attending Clinician Unavailable NICHELLE ALLISON Attending Clinician Unavailable Sav Rondon MD Attending Clinician Nichelle Bishop Attending Clinician Doctor Unassigned, [place] Attending Clinician Unavailable Miky Nava RN Attending [...] Policy Number Effective Date Expiration Date [place] [facility] [place] 2022 PENDING 00:00:00 Problems [...] tobacco Cigar Smoker Univ ersity of use [facility] Cigarettes smoked 2022-05-05 2022-05-05 Univers ity of current (pack per 00:00:00 00:00:00 ) - Reported Branch Cigarette 2022-05-05 2022-05-05 University of pack-years 00:00:00 00:00:00 [facility] Tobacco use and 2022-05-05 2022-05-05 Smokeless Universit y of exposure 00:00:00 00:00:00 tobacco non-user [facility] Alcohol intake 2022-05-05 2022-05-05 0 /d University of 00:00:00 00:00:00 [facility] Exposure to 2022-04-24 2022-05-04 Not sure [facility] SARS-CoV-2 (event) 00:00:00 20:18:00 [facility] Sex [birth year] At [birth year] Universit y of 00:00:00 00:00:00 [facility] Smoking Status Start Date Stop Date Source Smokes tobacco daily 2022-05-05 00:00:00 Univers ity of [facility] Medications Ordered Filled Start Stop Current Ordering Indication Dosage Frequency Signature Comments Components Source Medication Medication Date Date Medication? Clinician (SIG) Name Name Methylpredn 2021-07- Yes [id number] 4mg Take 1 Univers isolone 4 0-22 10-24 tablet ity of mg tablet 00:00: 04:59 through [place] 00 :00 enteral Medical tube in Branch the morning for 1 dose. Methylpredn 2021-07- Yes [id number] 4mg Take 1 Univers isolone 4 0-21 10-23 tablet ity of mg tablet 00:00: 04:59 through [place] 00 :00 enteral Medical tube every Branch 12 (twelve) hours for 2 doses. MULTIVITAMI 2021-07 Yes 1{tbl} Take 1 Tab Univers N ORAL 0-20 by mouth ity of 14:44: daily. [place] [address] Medical Branch omega-3 2021-07 Yes 1g Take 1 g Univer s fatty 0-20 by mouth ity of acids-vitam 14:44: daily. [facility] s in E (FISH 48 Medical OIL) 1,000 Branch mg capsule loratadine 2021-07 Yes Take by [facility] ers (CLARITIN 0-20 mouth ity of LIQUI-GEL) 14:44: daily. [place] 10 mg 48 Medical capsule Branch ondansetron 2021-07 Yes 4mg Take 4 mg U nivers (ZOFRAN) 4 0-20 by mouth ity o f mg tablet 14:44: every 8 [place] 48 (eight) Medical hours as Branch needed. pantoprazol 2021-07 Yes 40mg Take 40 mg Univers e 0-20 by mouth ity of (PROTONIX) 14:44: daily. [place] 40 mg EC 48 Medical tablet Branch DULoxetine 2021-07 Yes 30mg 30 mg, Unive rs (CYMBALTA) 0-20 Oral, ity of capsule 30 14:00: DAILY, [place] mg 00 First dose Medical on [facility] Branch 05/08/22 at 0900, Until Discontinu ed, Routine divalproex 2021-07 Yes 1000mg 1,000 mg, Univers (DEPAKOTE) 0-20 Oral, BID, ity of EC tablet 13:00: First dose [place] 1,000 mg 00 (after Medical last Branch modificati on) on [facility] 05/08/22 at 0800, Until Discontinu ed, Routine [...] 0-20 Oral, ity of (TYLENOL 04:07: Q4HPRN, [place] #3) 300-30 01 Starting Medic al mg [...] Discontinu ed, Routine, Anxiety cyclobenzap 2021-07 Yes [id number] 5mg Take 1 Univers rine 5 mg 0-20 tablet by ity o f tablet 00:00: mouth in [place] 00 the Medical morning Branch and 1 tablet at noon and 1 tablet in the evening. DULoxetine 2021-07- Yes [id number] 60mg Take 2 Univers (CYMBALTA) 0-20 11-20 capsules ity of 30 mg 00:00: 05:59 by mouth [place] capsule 00 :00 in the Medical morning Branch for 30 days. divalproex 2021-07- Yes [id number] 750mg Take 3 Univers (DEPAKOTE) 0-20 11-20 tablets by it y of 250 mg EC 00:00: 05:59 mouth [place] tablet 00 :00 every 8 Medical (eight) Branch hours for 30 days. LORazepam 1 2021-07- Yes [id number] 1mg Take 1 Univers mg tablet 0-20 [...] Indication s: acute pain Methylpredn 2021-07- Yes [id number] 4mg Take 1 Univers isolone 4 0-20 - tablet by ity of mg tablet 00:00: 04:59 mouth [place] 00 :00 every 8 Medical (eight) Branch hours for 3 doses. divalproex 2021-07- No 750mg 750 mg, Un lois (DEPAKOTE) 0-19 10-20 Oral, BID, it y of EC tablet 01:00: 09:40 First dose [place] 750 mg 00 :23 on [facility] 05/06/22 Branch at 2000, Until Discontinu ed, Routine levETIRAcet 2021-07 No 1500mg 1,500 mg, Univers am (KEPPRA) 005-06 Oral, BID, i ty of tablet 13:00: 18:38 First dose [place] 1,500 mg 00 :22 (after Medical last Branch modificati on) on [facility] 05/06/22 at 0800, Until Discontinu ed, Routine [...] 1 [place] 00 :00 dose, On [facility] 05/05/22 at 2030, Routine levETIRAcet 2021-07- No 1000mg 1,000 mg, Univers am (KEPPRA) 0-18 05-06 Oral, BID, i ty of tablet 01:00: 04:48 First dose [place] 1,000 mg 00 :06 on [facility] 05/05/22 Branch at 2000, Until Discontinu ed, Routine enoxaparin 2021-07 Yes 40mg 40 mg, Unive rs (LOVENOX) 018 Subcutaneo ity of injection 00:15: us, Q24H, [place] 40 mg 00 First dose Medical on [facility] 05/05/22 at 1915, Until Discontinu ed, Routine levETIRAcet 2021-07- No 1000mg 1,000 mg, Univers am (KEPPRA) 0- 10- IV ity of in NACL 19:45: 20:05 Piggyback, [place] (ISO-OS) 00 :00 ONCE, 1 Medical 1,000 dose, On Branch mg/100 mL [facility] 05/05/22 at 1445, Administer over 15 Minutes, 100 mL clonazePAM 2021-07 Yes .5mg 0.5 mg, Univ ers (KLONOPIN) 0-17 Oral, BID, ity of tablet 0.5 19:30: First dose [place] mg 00 on [facility] 05/05/22 Branch at 1430, Until Discontinu ed, Routine ibuprofen 2021-07 Yes 600mg 600 mg, Univ ers (IBU) 0-17 Oral, TID ity of tablet 600 19:30: MEALS, [place] mg 00 First dose Medical on [facility] 05/05/22 at 1430, Until Discontinu ed, Routine gabapentin 2021-07 Yes 300mg 300 mg, Uni vers (NEURONTIN) 0-17 Oral, TID, it y of capsule 300 19:30: First dose [place] mg 00 on [facility] 05/05/22 Branch at 1430, Until Discontinu ed, Routine cyclobenzap 2021-07 Yes 5mg 5 mg, Unive rs rine 0-17 Oral, TID, ity of (FLEXERIL) 19:30: First dose [place] tablet 5 mg 00 on [facility] 05/05/22 Branch at 1430, Until Discontinu ed, Routine acetaminoph 2021-07 Yes 1000mg 1,000 mg, Univers en 0-17 Oral, Q8H, ity of (TYLENOL) 19:30: First dose [place] tablet 00 on [facility] Medical 1,000 mg 05/05/22 Branch at 1430, Until Discontinu ed, Routine pantoprazol 2021-07 Yes 40mg 40 mg, Univ ers e 0-17 Oral, ity of (PROTONIX) 14:00: DAILY, [place] EC tablet 00 First dose Medi kwame 40 mg on [facility] 05/05/22 at 0900, Until Discontinu ed, Routine docusate 2021-07 Yes 100mg 100 mg, Unive rs (COLACE) 0-17 Oral, ity of capsule 100 14:00: DAILY, [place] mg 00 First dose Medical on [facility] 05/05/22 at 0900, Until Discontinu ed, Routine HYDROcodone 2021-07- No 1{tbl} 1 tablet, Univers -acetaminop 0-17 10-17 Oral, ity of hen (NORCO) 10:32: 19:18 Q6HPRN, [place] 10-325 mg 02 :52 Starting Medica l tablet 1 on [facility] tablet 05/05/22 at 0532, Until [facility] 05/05/22 at 1418, Routine, Pain (scale 7-10) ondansetron 2021-07 Yes 4mg 4 mg, Slow Univers (ZOFRAN 0-17 IV Push, ity of (PF)) 06:49: Q6HPRN, [place] injection 4 57 Starting Medi kwame mg on [facility] 05/05/22 at 0149, Until Discontinu ed, Routine, Nausea and Vomiting (N/V) HYDROcodone 2021-07- No 1{tbl} 1 tablet, Univers -acetaminop 0-17 10-17 Oral, ity of hen (NORCO 06:49: 10:32 Q6HPRN, [place] 5) 5-325 mg 41 :14 Starting Medi kwmae tablet 1 on [facility] Branch tablet 05/05/22 at 0149, Until 05/05/22 at 0532, Routine, Pain (scale 7-10) acetaminoph 2021-07 No 325mg 325 mg, U nivers en 005-05 Oral, ity of (TYLENOL) 06:49: 19:18 Q4HPRN, [place] tablet 325 39 :52 Starting Medic al mg on [facility] Branch 05/05/22 at 0149, Until [facility] 05/05/22 at 1418, Routine, Pain (scale 4-6) ondansetron 2021-07 No 4mg 4 mg, Univ ers (ZOFRAN) 005-05 Oral, ity of tablet 4 mg 04:00: 03:26 ONCE, 1 [place] 00 :00 dose, On [facility] 05/04/22 at 2300, Routine morpHINE (2 2021-07 No 2mg 2 mg, Slow Univers mg/mL) 05-05 IV Push, ity of injection 2 04:00: 03:26 ONCE, 1 [place] mg 00 :00 dose, On [facility] 05/04/22 at 2300, Routine aspirin 81 Yes [id number] 81mg Take 1 U nivers mg chewable 9-28 tablet by ity of tablet 00:00: mouth in [place] 00 the Medical morning. Branch aspirin 81 Yes [id number] 81mg Take 1 U nivers mg chewable 9-28 tablet by ity of tablet 00:00: mouth in [place] 00 the Medical morning. Branch MULTIVITAMI Yes 1{tbl} Take 1 Tab Univers N ORAL 9-27 by mouth ity of 17:39: daily. [place] 14 [facility] Branch omega-3 Yes 1g Take 1 g [...] Branch 04/14/22 at 2115, Routine levETIRAcet Yes [id number] 1000mg Take 1 Univers am 1,000 mg 9-27 tablet by ity of tablet 00:00: mouth in [place] 00 the Medical morning Branch and 1 tablet in the evening. atorvastati 0 Yes [id number] 40mg Take 1 Univers n 40 mg 9-27 tablet by ity of tablet 00:00: mouth at [place] 00 bedtime. Medical Branch atorvastati 0 Yes [id number] 40mg Take 1 Univers n 40 mg 9-27 tablet by ity of tablet 00:00: mouth at [place] 00 bedtime. Medical Branch levETIRAcet 2021- No [id number] 1000mg Take 1 Univers am 1,000 mg 9-27 10-20 tablet by it y of tablet 00:00: 00:00 mouth in [place] 00 :00 the Medical morning Branch and 1 tablet in the evening. lidocaine 5 2021- Yes [id number] 1{patch Apply 1 Univers % (700 04-15 10-05 } Patch to ity of mg/patch) 00:00: 04:59 area(s) in [place] patch 00 :00 the [facility] morning Branch for 7 days. HYDROcodone 0 [...] 12 Medical patch 1 Hours, Branch Patch [id number], Starting on Thu04/14/22 at 1645, Until Discontinu ed, Routine, Localized pain aspirin 0 Yes 81mg 81 mg, Univers chewable 04-14 Oral, ity of tablet 81 21:30: DAILY, [place] mg 00 First dose Medical on [facility] Branch 04/14/22 at 1630, Until Discontinu ed, [...] 7-10), Pain (scale 4-6) sulfur 2021- No [id number] 5mL 5 mL, Univ ers hexafluorid 04-14 Intravenou i ty of e microsphr 16:45: 16:45 s, ONCE, 1 [place] (LUMASON) 00 :00 dose, On Medica l injection 5 Mon Branch mL 04/14/22 at 1145, Routine
seafood team member approving Restricted medication : GERSON [...] First dose [place] mg 00 on [place] [facility] 04/13/22 at Branch 2100, Until Discontinu ed, Routine LORazepam 2021- No 1mg 1 mg, Univer s (ATIVAN) 04-14 Oral, ity of tablet 1 mg 01:30: 01:45 ONCE, 1 [place] 00 :00 dose, On [facility] 04/13/22 at 2030, Routine methocarbam Yes 500mg 500 mg, Un lois oL 04-14 Oral, QID, ity of (ROBAXIN) 01:00: First dose [place] tablet 500 00 on [facility] mg 04/13/22 at Branch 1999, Until Discontinu ed, Routine heparin Yes 5000U 5,000 Univers (porcine) 04-14 Units, ity of injection 01:00: Subcutaneo [place] 5,000 Units 00 us, Q12H, Med ical First dose Branch on [place] 04/13/22 at 2000, Until Discontinu ed, Routine acetaminoph 2021- No 650mg 650 mg, U nivers en 04-14 Oral, ity of (TYLENOL) 00:23: 21:29 Q6HPRN, [place] tablet 650 25 :42 Starting Medic al mg on [facility] 04/13/22 at 1923, Until 04/14/22 at 1629, Routine, Pain (scale 1-3), Pain (scale 4-6), Temp > 38.5 C, Temp > 37.5 C lidocaine 2021- No 1{patch 1 Patch, Univers (LIDODERM) 04-14 } Topical, ity of 5 % (700 00:22: 13:51 Administer [place] mg/patch) 00 :00 over 12 Medical patch 1 Hours, [place] Patch ONCE, 1 dose, On [place] 04/13/22 at 1930, Routine FENTanyl PF 2021- No 50ug 50 mcg, Un lois (SUBLIMAZE 04-13 Slow IV ity o f (PF)) 20:30: 19:22 Push, [place] injection 00 :00 ONCE, 1 Medical 50 mcg dose, On [facility] 04/13/22 at 1530, Routine aspirin 2021- No 650mg 650 mg, Unive rs chewable 04-13 Oral, ity of tablet 650 20:15: 20:15 ONCE, 1 [place] mg 00 :00 dose, On [facility] 04/13/22 at 1515, Routine clopidogreL 2021- No 300mg 300 mg, U nivers (PLAVIX) 04-13 Oral, ity of 300 mg 20:00: 19:15 ONCE, 1 [place] tablet 300 00 :00 dose, On Medic al mg [facility] 04/13/22 at 1500, Routine ondansetron 2021- No 4mg 4 mg, Slow Univers (ZOFRAN 04-13 IV Push, ity of (PF)) 19:30: 19:22 ONCE, 1 [place] injection 4 00 :00 dose, On Medi kwame mg [facility] 04/13/22 at 1430, MICHAEL iopamidol 2021- No [id number] 100mL 100 mL, Univers (ISOVUE 04-13 Intravenou ity o f 370-500 mL) 18:31: 18:32 s, ONCE, 1 [place] injection 00 :00 dose, On Medica l 100 mL [facility] 04/13/22 at 1345, Routine NaCl 0.9% Yes 5mL 5 mL, Slow Un lois (NS) 04-13 IV Push, ity of injection 5 18:14: PRN - SEE [place] mL 11 INSTRUCT Medical NS, Branch Starting on [place] 04/13/22 at 1314, Until Discontinu ed, 10 mL aspirin Yes 324mg 324 mg, Univer s chewable 11-24 Oral, ity of tablet 324 14:00: DAILY, [place] mg 00 First dose Medical on [place] Branch 11/24/21 at 0900, Until Discontinu ed, [...] Sat Medica l mg(2.5 mg 03/16/21 at [facility])/3 mL 2100, MICHAEL nebulizer solution 3 mL NaCl 0.9% 2020- No 1000mL at 999 Uni vers (NS) IV 03-17 mL/hr, ity of infusion 01:57: 03:07 Intravenou [place] 1,000 mL 00 :00 s, ONCE, 1 Medic al dose, Sat Branch 03/16/21 at 2100, MICHAEL methylpredn 2020- No 125mg 125 mg, U nivers isolone sod 03-17 Slow IV ity of succ 01:57: 02:11 Push, [place] (SOLU-MEDRO 00 :00 ONCE, 1 Medic al [...] Slow IV ity of succ 01:57: 02:11 [place], [place] (SOLU-MEDRO 00 :00 ONCE, 1 Medic al L) dose, Sat Branch injection 03/16/21 at 125 mg 2100, STAT ipratropium 0 2020- No 3mL 3 mL, Univ ers -albuteroL 03-17 Inhalation it y of (DUONEB) 01:57: 02:15 , ONCE, 1 [place] 0.5 mg-3 00 :00 dose, Sat Medica l mg(2.5 mg 03/16/21 at [facility] base)/3 mL 2100, MICHAEL nebulizer solution 3 mL levoFLOXaci [id number] 500mg Take 1 Univers n 500 mg 03-17 tablet by ity o f tablet 00:00: 04:59 mouth [place] 00 :00 daily for Medical 6 days. [place] levoFLOXaci [id number] 500mg Take 1 Univers n 500 mg 03-17 tablet by ity o f tablet 00:00: 04:59 mouth [place] 00 :00 daily for Medical 6 days. [place] levoFLOXaci [id number] 500mg Take 1 Univers n 500 mg 03-17 tablet by ity o f tablet 00:00: 04:59 mouth [place] 00 :00 daily for Medical 6 days. [place] levoFLOXaci [id number] 500mg Take 1 Univers n 500 mg 03-17 tablet by ity o f tablet 00:00: 04:59 mouth [place] 00 :00 daily for Medical 6 days. Branch predniSONE [id number] 30mg Take 3 Univers 10 mg 03-17 tablets by ity of tablet 00:00: 04:59 mouth [place] 00 :00 daily for Medical 4 days. Branch predniSONE No [id number] 30mg Take 3 Univers 10 mg 03-17 tablets by ity of tablet 00:00: 04:59 mouth [place] 00 :00 daily for Medical 4 days. Branch predniSONE No [id number] 30mg Take 3 Univers 10 mg 03-17 tablets by ity of tablet 00:00: 04:59 mouth [place] 00 :00 daily for Medical 4 days. Branch predniSONE [id number] 30mg Take 3 Univers 10 mg 03-17 tablets by ity of tablet 00:00: 04:59 mouth [place] 00 :00 daily for Medical 4 days. [place] albuterol [id number] 4{puff} 4 Puff, Univers (VENTOLIN) 03-15-27 Inhalation it y of inhaler 4 01:45: 00:44 , ONCE, 1 [place] Puff 00 :00 dose, [facility] 03/14/21 at Branch 2044, Routine dexamethaso 2020- No [id number] 10mg 10 mg, Univers ne 03-15- Intramuscu ity of (DECADRON) 01:45: 00:45 lar, ONCE, [place] injection 00 :00 1 dose, Medical 10 mg [facility] [place] 03/14/21 at 2044, Routine albuterol 0 Yes [id number] 2.5mg Inhale 3 Univers 2.5 mg /3 8-27 mL every 4 ity of mL (0.083 00:00: (four) [place] %) 00 hours as Medical nebulizer needed for Bran ch solution Wheezing or Shortness of Breath. albuterol Yes [id number] 2.5mg Inhale 3 Univers 2.5 mg /3 8-27 mL every 4 ity of mL (0.083 00:00: (four) [place] %) 00 hours as Medical nebulizer needed for Bran ch solution Wheezing or Shortness of Breath. albuterol 0 Yes [id number] 2.5mg Inhale 3 Univers 2.5 mg /3 8-27 mL every 4 ity of mL (0.083 00:00: (four) [place] %) 00 hours as Medical nebulizer needed for Bran ch solution Wheezing or Shortness of Breath. albuterol Yes [id number] 2.5mg Inhale 3 Univers 2.5 mg /3 8-27 mL every 4 ity of mL (0.083 00:00: (four) [place] %) 00 hours as Medical nebulizer needed for Bran ch solution Wheezing or Shortness of Breath. albuterol 2020- Yes [id number] 2.5mg Inhale 3 Univers 2.5 mg /3 8-27 mL every 4 ity of mL (0.083 00:00: (four) [place] %) 00 hours as Medical nebulizer needed for Bran ch solution Wheezing or Shortness of Breath. albuterol 2020- Yes [id number] 2.5mg Inhale 3 Univers 2.5 mg /3 8-27 mL every 4 ity of mL (0.083 00:00: ([facility]) [place] %) 00 hours as Medical nebulizer needed for Bran ch solution Wheezing or Shortness of Breath. albuterol 2020-0 Yes [id number] 2.5mg Inhale 3 Univers 2.5 mg /3 8-27 mL every 4 ity of mL (0.083 00:00: (four) [place] %) 00 hours as Medical nebulizer needed for Bran ch solution Wheezing or Shortness of Breath. albuterol 2020-0 Yes [id number] 2.5mg Inhale 3 Univers 2.5 mg /3 8-27 mL every 4 ity of mL (0.083 00:00: ([facility]) [place] %) 00 hours as Medical nebulizer needed for Bran ch solution Wheezing or Shortness of Breath. albuterol 0 Yes [id number] 2.5mg Inhale 3 Univers 2.5 mg /3 8-27 mL every 4 ity of mL (0.083 00:00: ([facility]) [place] %) 00 hours as Medical nebulizer needed for Bran ch solution Wheezing or Shortness of Breath. albuterol 2020-0 Yes [id number] 2.5mg Inhale 3 Univers 2.5 mg /3 8-27 mL every 4 ity of mL (0.083 00:00: (four) [place] %) 00 hours as Medical nebulizer needed for Bran ch solution Wheezing or Shortness of Breath. albuterol 0 Yes [id number] 2.5mg Inhale 3 Univers 2.5 mg /3 8-27 mL every 4 ity of mL (0.083 00:00: (four) [place] %) 00 hours as Medical nebulizer needed for Bran ch solution Wheezing or Shortness of Breath. albuterol 0 Yes [id number] 2.5mg Inhale 3 Univers 2.5 mg /3 [...] (KEPPRA 8-03 mouth. ity of ORAL) 19:45: [address] levetiracet Yes Take by Uni vers am (KEPPRA 8-03 mouth. ity of ORAL) 19:45: [address] levetiracet Yes Take by Uni vers am (KEPPRA 8-03 mouth. ity of ORAL) 19:45: [address] levetiracet Yes Take by Uni vers am (KEPPRA 8-03 mouth. ity of ORAL) 19:45: [address] levetiracet Yes Take by Uni vers am (KEPPRA 8-03 mouth. ity of ORAL) 19:45: [address] levetiracet Yes Take by Uni vers am (KEPPRA 8-03 mouth. ity of ORAL) 19:45: [address] LISINOPRIL- 2020- No Take by Un lois HYDROCHLORO 02-19 mouth. ity o f THIAZIDE 19:41: 00:00 [place] ORAL 15 :00 [facility] dicyclomine 2020- No 20mg 20 mg, Uni [...] at Branch 1200, MICHAEL iopamidol 2020- No [id number] 100mL 100 mL, Univers (ISOVUE 02-19 Intravenou ity o f 370-500 mL) 16:35: 16:45 s, ONCE, 1 [place] injection 00 :00 dose, Tue Medic al 100 mL 02/19/21 at Branch 1145, Routine levetiracet Yes Take by Uni vers am (KEPPRA 8-03 mouth. ity of ORAL) 14:45: [address] levetiracet Yes Take by Uni vers am (KEPPRA 8-03 mouth. ity of ORAL) 14:45: [address] levetiracet Yes Take by Uni vers am (KEPPRA 8-03 mouth. ity of ORAL) 14:45: [address] levetiracet Yes Take by Uni vers am (KEPPRA 8-03 mouth. ity of ORAL) 14:45: [address] levetiracet Yes Take by Uni vers am (KEPPRA 8-03 mouth. ity of ORAL) 14:45: [address] proMETHazin Yes [id number] 25mg Take 1 Univers e 25 mg 02-19 tablet by ity of tablet 00:00: mouth [place] 00 every 6 Medical (six) Branch hours as needed for Nausea and Vomiting (N/V). dicyclomine 2021-0 Yes [id number] 20mg Take 1 Univers 20 mg 8-03 tablet by ity of tablet 00:00: mouth 4 (four) Medical times Branch daily as needed for Abdominal pain. proMETHazin 2020-0 Yes [id number] 25mg Take 1 Univers e 25 mg 8-03 tablet by ity of tablet 00:00: mouth [place] 00 every 6 Medical (six) Branch hours as needed for Nausea and Vomiting (N/V). dicyclomine 2020-0 Yes [id number] 20mg Take 1 Univers 20 mg 8-03 tablet by ity of tablet 00:00: mouth (four) Medical times Branch daily as needed for Abdominal pain. proMETHazin 2020-0 Yes [id number] 25mg Take 1 Univers e 25 mg 8-03 tablet by ity of tablet 00:00: mouth 00 every 6 Medical (six) Branch hours as needed for Nausea and Vomiting (N/V). dicyclomine 2020-0 Yes [id number] 20mg Take 1 Univers 20 mg 8-03 tablet by ity of tablet 00:00: mouth (four) Medical times Branch daily as needed for Abdominal pain. proMETHazin 2020-0 Yes [id number] 25mg Take 1 Univers e 25 mg 8-03 tablet by ity of tablet 00:00: mouth [place] 00 every 6 Medical (six) Branch hours as needed for Nausea and Vomiting (N/V). dicyclomine 1-0 Yes [id number] 20mg Take 1 Univers 20 mg 8-03 tablet by ity of tablet 00:00: mouth (four) Medical times Branch daily as needed for Abdominal pain. proMETHazin 2021-0 Yes [id number] 25mg Take 1 Univers e 25 mg 8-03 tablet by ity of tablet 00:00: mouth [place] 00 every 6 Medical (six) Branch hours as needed for Nausea and Vomiting (N/V). dicyclomine 2021-0 Yes [id number] 20mg Take 1 Univers 20 mg 8-03 tablet by ity of tablet 00:00: mouth (four) Medical times Branch daily as needed for Abdominal pain. proMETHazin 2021-0 Yes [id number] 25mg Take 1 Univers e 25 mg 8-03 tablet by ity of tablet 00:00: mouth [place] 00 every 6 Medical (six) Branch hours as needed for Nausea and Vomiting (N/V). dicyclomine 2020-0 Yes [id number] 20mg Take 1 Univers 20 mg 8-03 tablet by ity of tablet 00:00: mouth 4 [place] 00 (four) Medical times Branch daily as needed for Abdominal pain. proMETHazin 2020-0 Yes [id number] 25mg Take 1 Univers e 25 mg 8-03 tablet by ity of tablet 00:00: mouth [place] 00 every 6 Medical (six) Branch hours as needed for Nausea and Vomiting (N/V). dicyclomine 2020-0 Yes [id number] 20mg Take 1 Univers 20 mg 8-03 tablet by ity of tablet 00:00: mouth 4 [place] 00 (four) Medical times Branch daily as needed for Abdominal pain. proMETHazin 2020-0 Yes [id number] 25mg Take 1 Univers e 25 mg 8-03 tablet by ity of tablet 00:00: mouth [place] 00 every 6 Medical (six) Branch hours as needed for Nausea and Vomiting (N/V). dicyclomine 2020-0 Yes [id number] 20mg Take 1 Univers 20 mg 8-03 tablet by ity of tablet 00:00: mouth 4 [place] 00 (four) Medical times Branch daily as needed for Abdominal pain. proMETHazin 2020-0 Yes [id number] 25mg Take 1 Univers e 25 mg 8-03 tablet by ity of tablet 00:00: mouth [place] 00 every 6 Medical (six) Branch hours as needed for Nausea and Vomiting (N/V). dicyclomine 2020-0 Yes [id number] 20mg Take 1 Univers 20 mg 8-03 tablet by ity of tablet 00:00: mouth 4 [place] 00 (four) Medical times Branch daily as needed for Abdominal pain. proMETHazin 2020-0 Yes [id number] 25mg Take 1 Univers e 25 mg 8-03 tablet by ity of tablet 00:00: mouth [place] 00 every 6 Medical (six) Branch hours as needed for Nausea and Vomiting (N/V). dicyclomine 2020-0 Yes [id number] 20mg Take 1 Univers 20 mg 8-03 tablet by ity of tablet 00:00: mouth (four) Medical times Branch daily as needed for Abdominal pain. proMETHazin 0 Yes [id number] 25mg Take 1 Univers e 25 mg 8-03 tablet by ity of tablet 00:00: mouth 00 every 6 Medical (six) Branch hours as needed for Nausea and Vomiting (N/V). dicyclomine Yes [id number] 20mg Take 1 Univers 20 mg 8-03 tablet by ity of tablet 00:00: mouth (four) Medical times Branch daily as needed for Abdominal pain. proMETHazin Yes [id number] 25mg Take 1 Univers e 25 mg 8-03 tablet by ity of tablet 00:00: mouth every 6 Medical (six) Branch hours as needed for Nausea and Vomiting (N/V). dicyclomine Yes [id number] 20mg Take 1 Univers 20 mg 8-03 tablet by ity of tablet 00:00: mouth (four) Medical times Branch daily as needed for Abdominal pain. proMETHazin Yes [id number] 25mg Take 1 Univers e 25 mg 8-03 tablet by ity of tablet 00:00: mouth every 6 Medical (six) Branch hours as needed for Nausea and Vomiting (N/V). dicyclomine 0 Yes [id number] 20mg Take 1 Univers 20 mg 8-03 [...] o f mg tablet 20:05: every 8 [place] (eight) Medical hours as Branch needed. pantoprazol Yes 40mg Take 40 mg Univers e 7-24 by mouth ity of (PROTONIX) 20:05: daily. [place] 40 mg EC 01 Medical tablet Branch ondansetron 2018-0 Yes 4mg Take 4 mg U nivers (ZOFRAN) 4 7-24 by mouth ity o f mg tablet 20:05: every 8 [place] (eight) Medical hours as Branch needed. pantoprazol 2018-0 Yes 40mg Take 40 mg Univers e 7-24 by mouth ity of (PROTONIX) 20:05: daily. [place] 40 mg EC Medical tablet Branch LISINOPRIL- 2018-0 Yes Take by Uni vers HYDROCHLORO 7-24 mouth. ity of THIAZIDE 20:05: [place] ORAL Medical Branch ondansetron 2018-0 Yes 4mg Take 4 mg U nivers (ZOFRAN) 4 7-24 by mouth ity o f mg tablet 20:05: every 8 [place] (eight) Medical hours as Branch needed. pantoprazol 2018-0 Yes 40mg Take 40 mg Univers e 7-24 by mouth ity of (PROTONIX) 20:05: daily. [place] 40 mg EC Medical tablet Branch ondansetron 2018-0 Yes 4mg Take 4 mg U nivers (ZOFRAN) 4 7-24 by mouth ity o f mg tablet 20:05: every 8 [place] [address] (eight) Medical hours as Branch needed. pantoprazol 2018-0 Yes 40mg Take 40 mg Univers e 7-24 by mouth ity of (PROTONIX) 20:05: daily. [place] 40 mg EC Medical tablet Branch ondansetron 2018-0 Yes 4mg Take 4 mg U nivers (ZOFRAN) 4 7-24 by mouth ity o f mg tablet 20:05: every 8 [place] [address] (eight) Medical hours as Branch needed. pantoprazol 2018-0 Yes 40mg Take 40 mg Univers e 7-24 by mouth ity of (PROTONIX) 20:05: daily. [place] 40 mg EC Medical tablet Branch ondansetron 2018-0 Yes 4mg Take 4 mg U nivers (ZOFRAN) 4 7-24 by mouth ity o f mg tablet 20:05: every 8 [place] [address] (eight) Medical hours as Branch needed. pantoprazol 2018-0 Yes 40mg Take 40 mg Univers e 7-24 by mouth ity of (PROTONIX) 20:05: daily. [place] 40 mg EC Medical tablet Branch ondansetron [...] 7-24 by mouth ity of 19:58: daily. [place] [address] Medical Branch loratadine 0 Yes Take by [facility] ers (CLARITIN 7-24 mouth ity of LIQUI-GEL) 19:58: daily. [place] 10 mg 14 Medical capsule Branch MULTIVITAMI 0 Yes 1{tbl} Take 1 Tab Univers N ORAL 7-24 by mouth ity of 19:58: daily. [place] 14 Medical Branch loratadine 2017-0 Yes Take by Univ ers (CLARITIN 7-24 mouth ity of LIQUI-GEL) 19:58: daily. [place] 10 mg 14 Medical capsule Branch MULTIVITAMI 0 Yes 1{tbl} Take 1 Tab Univers N ORAL 7-24 by mouth ity of 19:58: daily. [place] [address] Medical Branch loratadine 0 Yes Take by Univ ers (CLARITIN 7-24 mouth ity of LIQUI-GEL) 19:58: daily. [place] 10 mg 14 Medical capsule Branch MULTIVITAMI 0 Yes 1{tbl} Take 1 Tab Univers N ORAL 7-24 by mouth ity of 19:58: daily. [place] [address] Medical Branch loratadine 2017-0 Yes Take by [facility] ers (CLARITIN 7-24 mouth ity of LIQUI-GEL) 19:58: daily. [place] 10 mg 14 Medical capsule Branch MULTIVITAMI 0 Yes 1{tbl} Take 1 Tab Univers N ORAL 7-24 by mouth ity of 19:58: daily. [place] [address] Medical Branch loratadine 0 Yes Take by Univ ers (CLARITIN 7-24 mouth ity of LIQUI-GEL) 19:58: daily. [place] 10 mg 14 Medical capsule Branch MULTIVITAMI 0 Yes 1{tbl} Take 1 Tab Univers N ORAL 7-24 by mouth ity of 19:58: daily. [place] [address] Medical Branch loratadine 0 Yes Take by [facility] ers (CLARITIN 7-24 mouth ity of LIQUI-GEL) 19:58: daily. [place] 10 mg 14 Medical capsule Branch MULTIVITAMI 0 Yes 1{tbl} Take 1 Tab Univers N ORAL 7-24 by mouth ity of 19:58: daily. [place] [address] Medical Branch loratadine 2017-0 Yes Take by [facility] ers (CLARITIN 7-24 mouth ity of LIQUI-GEL) 19:58: daily. [place] 10 mg 14 Medical capsule Branch ondansetron 0 Yes 4mg Take 4 mg U nivers (ZOFRAN) 4 7-24 by mouth ity o f mg tablet 15:05: every 8 [place] [address] (eight) Medical hours as Branch needed. pantoprazol 2018-0 Yes 40mg Take 40 mg Univers e 7-24 by mouth ity of (PROTONIX) 15:05: daily. [place] 40 mg EC 01 Medical tablet Branch ondansetron 2018-0 Yes 4mg Take 4 mg U nivers (ZOFRAN) 4 7-24 by mouth ity o f mg tablet 15:05: every 8 [place] 01 (eight) Medical hours as Branch needed. pantoprazol 2018-0 Yes 40mg Take 40 mg Univers e 7-24 by mouth ity of (PROTONIX) 15:05: daily. [place] 40 mg EC 01 Medical tablet Branch [...] o f mg tablet 15:05: every 8 [place] [address] (eight) Medical hours as Branch needed. pantoprazol [...] 7-24 by mouth ity of 14:58: daily. [place] 14 Medical Branch loratadine Yes Take by Univ ers (CLARITIN 7-24 mouth ity of LIQUI-GEL) 14:58: daily. [place] 10 mg 14 Medical capsule Branch MULTIVITAMI Yes 1{tbl} Take 1 Tab Univers N ORAL 7-24 by mouth ity of 14:58: daily. [place] 14 Medical Branch loratadine 0 Yes Take by Univ ers (CLARITIN 7-24 mouth ity of LIQUI-GEL) 14:58: daily. [place] 10 mg 14 Medical capsule Branch MULTIVITAMI 0 Yes 1{tbl} Take 1 Tab Univers N ORAL 7-24 by mouth ity of 14:58: daily. [place] [address] Medical Branch loratadine Yes Take by Univ ers (CLARITIN 7-24 mouth ity of LIQUI-GEL) 14:58: daily. [place] 10 mg 14 Medical capsule Branch MULTIVITAMI 0 Yes 1{tbl} Take 1 Tab Univers N ORAL 7-24 by mouth ity of 14:58: daily. [place] 14 Medical Branch loratadine Yes Take by [facility] ers (CLARITIN 7-24 mouth ity of LIQUI-GEL) 14:58: daily. [place] 10 mg 14 Medical capsule Branch MULTIVITAMI Yes 1{tbl} Take 1 Tab Univers N ORAL 7-24 by mouth ity of 14:58: daily. [place] 14 Medical Branch loratadine Yes Take by [facility] ers (CLARITIN 7-24 mouth ity of [...] Immunization Date Status Comments [facility] e Immunization Name Name SARS-COV-2 COVID-19 2022-02-19 Completed Unive rsity of PFIZER BA-SUCROSE 00:00:00 [place] Medical VACCINE (ROSE TOP) Branch SARS-COV-2 COVID-19 2022-02-19 Completed Unive rsity of PFIZER BA-SUCROSE 00:00:00 [place] Medical VACCINE (ROSE TOP) Branch SARS-COV-2 COVID-19 2022-02-19 Completed Unive rsity of PFIZER BA-SUCROSE 00:00:00 [place] Medical VACCINE (ROSE TOP) Branch SARS-COV-2 COVID-19 2021-05-24 Completed Unive rsity of PFIZER VACCINE 00:00:00 [facility] SARS-COV-2 COVID-19 2021-05-24 Completed Unive rsity of PFIZER VACCINE 00:00:00 [facility] SARS-COV-2 COVID-19 2021-05-24 Completed Unive rsity of PFIZER VACCINE 00:00:00 [facility] SARS-COV-2 COVID-19 2021-05-24 Completed Unive rsity of PFIZER VACCINE 00:00:00 [facility] SARS-COV-2 COVID-19 2021-05-24 Completed Unive rsity of PFIZER VACCINE 00:00:00 [facility] SARS-COV-2 COVID-19 2021-05-03 Completed Unive rsity of PFIZER VACCINE 00:00:00 [facility] SARS-COV-2 COVID-19 2021-05-03 Completed Unive rsity of PFIZER VACCINE 00:00:00 [facility] SARS-COV-2 COVID-19 2021-05-03 Completed Unive rsity of PFIZER VACCINE 00:00:00 [facility] SARS-COV-2 COVID-19 2021-05-03 Completed Unive rsity of PFIZER VACCINE 00:00:00 [facility] SARS-COV-2 COVID-19 2021-05-03 Completed Unive rsity of PFIZER VACCINE 00:00:00 [facility] SARS-COV-2 COVID-19 2021-05-03 Completed Unive rsity of PFIZER VACCINE 00:00:00 [facility] Vital Signs Vital Name Observation Time Observation Value Comments Source Systolic blood 2022-05-08 16:40:00 146 mm[Hg] Univer sity of pressure [facility] Diastolic blood 2022-05-08 16:40:00 96 mm[Hg] Unive rsity of pressure [facility] Heart rate 2022-05-08 16:40:00 112 /min Universi ty [facility] Body temperature 2022-05-08 16:40:00 36.78 Radha Univ ersity of [place] [facility] Respiratory rate 2022-05-08 16:40:00 18 /min [facility] ersity of [place] [facility] Oxygen saturation in 2022-05-08 16:40:00 94 /min University of Arterial blood by [facility] Pulse oximetry Branch Body height 2022-05-05 23:44:00 160 cm Universi ty [facility] Body weight 2022-05-05 23:37:00 81.647 kg General acute hospital BMI 2022-05-05 23:37:00 31.89 kg/m2 [facility] ty [facility] Systolic blood 2022-04-15 18:52:00 104 mm[Hg] Univer sity of pressure [facility] Diastolic blood 2022-04-15 18:52:00 82 mm[Hg] Unive rsity of pressure [facility] Heart rate 2022-04-15 18:52:00 114 /min Universi ty of [place] [facility] Oxygen saturation in 2022-04-15 18:52:00 98 /min University of Arterial blood by [facility] Pulse oximetry Branch Body temperature 2022-04-15 16:14:00 36.28 Radha Univ ersity of [place] [facility] Respiratory rate 2022-04-15 16:14:00 17 /min Univ ersity of [place] [facility] Body height 2022-04-13 21:08:00 160 cm Universi ty of [place] [facility] Body weight 2022-04-13 21:08:00 91.173 kg Universi ty of [place] [facility] BMI 2022-04-13 21:08:00 35.61 kg/m2 Universi ty of [place] [facility] Systolic blood 2021-11-23 21:30:00 132 mm[Hg] Univer sity of pressure [place] [facility] Diastolic blood 2021-11-23 21:30:00 76 mm[Hg] Unive rsity of pressure [place] [facility] Heart rate 2021-11-23 21:30:00 95 /min Universi ty of [place] [facility] Respiratory rate 2021-11-23 21:30:00 13 /min Univ ersity of [place] [facility] Oxygen saturation in 2021-11-23 21:30:00 97 /min University of Arterial blood by [facility] Pulse oximetry Branch Body temperature 2021-11-23 20:15:00 37.56 Radha Univ ersity of [place] [facility] Systolic blood 2021-03-17 03:00:00 117 mm[Hg] Univer sity of pressure [place] [facility] Diastolic blood 2021-03-17 03:00:00 76 mm[Hg] Unive rsity of pressure [place] [facility] Heart rate 2021-03-17 03:00:00 104 /min Universi ty of [place] [facility] Respiratory rate 2021-03-17 03:00:00 28 /min Univ ersity of [place] [facility] Oxygen saturation in 2021-03-17 03:00:00 96 /min University of Arterial blood by [facility] Pulse oximetry Branch Body temperature 2021-03-17 00:39:00 37.11 Radha Univ ersity of [place] [facility] Body height 2021-03-17 00:39:00 160 cm Universi ty of [place] [facility] Body weight 2021-03-17 00:39:00 58.968 kg Universi ty of [place] [facility] BMI 2021-03-17 00:39:00 23.03 kg/m2 Universi ty of [place] [facility] Systolic blood 2021-03-15 00:14:00 149 mm[Hg] Univer sity of pressure [place] [facility] Diastolic blood 2021-03-15 00:14:00 78 mm[Hg] Unive rsity of pressure [facility] Heart rate 2021-03-15 00:14:00 100 /min Universi ty of [place] [facility] Body temperature 2021-03-15 00:14:00 37.33 Radha Univ ersity of [place] [facility] Respiratory rate 2021-03-15 00:14:00 24 /min Univ ersity of [place] [facility] Body height 2021-03-15 00:14:00 160 cm Universi ty [facility] [place] [facility] Body weight 2021-03-15 00:14:00 58.968 kg Universi ty of [place] [facility] BMI 2021-03-15 00:14:00 23.03 kg/m2 Universi ty of [place] [facility] Oxygen saturation in 2021-03-15 00:14:00 98 /min University of Arterial blood by [place] [employer] Pulse oximetry Branch Systolic blood 2021-02-19 18:00:00 131 mm[Hg] Univer sity of pressure [facility] Diastolic blood 2021-02-19 18:00:00 80 mm[Hg] Unive rsity of pressure [facility] Heart rate 2021-02-19 18:00:00 83 /min Universi ty of [place] [facility] Respiratory rate 2021-02-19 18:00:00 18 /min Univ ersity of [facility] Oxygen saturation in 2021-02-19 18:00:00 100 /min University of Arterial blood by [place] [employer] Pulse oximetry Branch Body temperature 2021-02-19 15:47:00 37 Radha Univ ersity of [place] [facility] Body height 2021-02-19 15:47:00 160 cm Universi ty of [place] [facility] Body weight 2021-02-19 15:47:00 58.968 kg Universi ty [facility] [place] [facility] BMI 2021-02-19 15:47:00 23.03 kg/m2 Universi ty [facility] [place] [facility] BP Systolic 2021-09-30 18:15:00 148 [...] Clinician Source Performed PHOSPHORUS 2022-05-08 Azeem Meehan [place] of 05:51:00 [facility] MAGNESIUM 2022-05-08 [facility] 05:51:00 [facility] BASIC METABOLIC PANEL (NA, K, 2022-05-08 Azeem Meehan U niversity of CL, CO2, GLUCOSE, BUN, 05:51:00 [place] [facility] ical CREATININE, [place]) Branch CBC WITH DIFF 2022-05-08 YvesTirado, [facility] of 05:51:00 [facility] BASIC METABOLIC PANEL (NA, K, 2022-05-07 [facility] of CL, CO2, GLUCOSE, BUN, 07:09:00 [facility] ical CREATININE, [place]) Branch CBC WITH DIFF 2022-05-07 [facility] of 07:09:00 [facility] POCT GLUCOSE (AUTOMATED) 2022-05-07 Brandyn Mcfarlane ity of 01:16:00 [facility] HB ABO GROUPING 2022-05-06 [facility] of 05:07:00 [facility] BASIC METABOLIC PANEL (NA, K, 2022-05-06 [facility] niversity of CL, CO2, GLUCOSE, BUN, 05:04:00 [place] [facility] ical CREATININE[place]) Branch CBC WITH DIFF 2022-05-06 [facility] 05:04:00 [facility] KEPPRA (LEVETIRACETAM) 2022-05-06 [facility] ty of 05:04:00 [facility] MR LUMBAR SPINE WO CONTRAST 2022-05-06 KneedlerEnder U niversity of 02:54:37 [facility] ELECTROENCEPHALOGRAM 2022-05-06 [facility] ty of 00:00:00 [facility] BASIC METABOLIC PANEL (NA, K, 2022-05-05 [facility] of CL, CO2, GLUCOSE, BUN, 07:57:00 [facility] CREATININE, [place]) Branch CBC WITH DIFF 2022-05-05 [facility] of 07:57:00 [facility] PROTHROMBIN TIME / INR 2022-05-05 [facility] 07:57:00 [facility] ACTIVATED PARTIAL THRMPLAS 2022-05-05 Shaun [facility] of DAVID 07:57:00 [facility] FIBRINOGEN 2022-05-05 [facility] of 07:57:00 [facility] EMERGENCY SERVICES AGREEMENTS 2022-05-04 Doctor Unassigned, University of AND AUTHORIZATIONS 05:01:00 [place] [facility] VITAMIN D, 25-OH 2022-04-15 [place] of 16:53:00 [facility] MR THORACIC SPINE WO CONTRAST 2022-04-15 Soumya Chua Un iversity of 11:56:19 [facility] MR CERVICAL SPINE WO CONTRAST 2022-04-15 Soumya Chua Un iversity of 11:20:00 [facility] BASIC METABOLIC PANEL (NA, K, 2022-04-15 Charmaine Morataya Un iversity of CL, CO2, GLUCOSE, BUN, 10:36:00 [place] [facility] ical CREATININE[place]) Branch TEST, URINE 2022-04-15 [facility] [address] of 04:39:00 [facility] URINE DRUG (IMMUNOASSAY) - 2022-04-15 [facility] rsity of COMPREHENSIVE DRUG SCREEN 04:39:00 [facility] URINALYSIS 2022-04-15 [facility] [address] of 04:39:00 [facility] TRANSTHORACIC ECHO (TTE) 2022-04-14 Harshil [facility] ity of COMPLETE W/ CONTRAST 16:37:03 [facility] KEPPRA (LEVETIRACETAM) 2022-04-14 Harshil [facility] y of 15:30:00 [facility] MAGNESIUM 2022-04-14 [facility] [address] of 10:03:00 [facility] BASIC METABOLIC PANEL (NA, K, 2022-04-14 Soumya Chua Un iversity of CL, CO2, GLUCOSE, BUN, 10:03:00 [place] ical CREATININE[place]) Branch MR LUMBAR SPINE WO CONTRAST 2022-04-[address] [facility] ersity of 02:48:12 [facility] MR STROKE BRAIN WO CONTRAST 2022-04-[address] [facility] ersity of 02:29:[address] [facility] CT STROKE ANGIOGRAM HEAD 2022-04-13 Sapna Vargas [facility] ersity of 18:40:[address] [facility] [address] STROKE ANGIOGRAM NECK 2022-04-13 Sapna Vargas [facility] ersity of 18:40:[address] [facility] [address] STROKE HEAD WO CONTRAST 2022-04-13 Sapna aVrgas Un iversity of 18:36:00 [facility] TROPONIN I 2022-04-13 Sapna Vargas [facility] 18:17:00 [facility] THYROID STIMULATING HORMONE 2022-04-[address] [facility] ersity of 18:17:00 [facility] BASIC METABOLIC PANEL (NA, K, 2022-04-13 Sapna Vargas [facility] CL, CO2, GLUCOSE, BUN, 18:17:00 [facility] ical CREATININE[place]) Branch LIPID PANEL (19797)(TOTAL 2022-04-13 [facility] sity of CHOLESTEROL, TRIGLYCERIDES, 18:17:00 [facility] HDL) Branch CBC WITHOUT DIFF 2022-04-13 Sapna Vargas [place] o f 18:17:00 [facility] GLYCOSYLATED HEMOGLOBIN (A1C) 2022-04-13 John Chuaena Un iversity of 18:17:00 [facility] PROTHROMBIN TIME / INR 2022-04-13 Sapna Vargas [facility] sity of 18:17:00 [facility] ACTIVATED PARTIAL THRMPLAS 2022-04-13 Sapna Vargas iversity of DAVID 18:17:00 [facility] COVID-19 (ID NOW RAPID 2022-04-13 Sapna Vargas [facility] sity of TESTING) 18:17:00 [facility] LAB ONLY COVID INTERPRETATION 2022-04-13 Sapna Vargas [facility] 18:17:00 [facility] HB ECG ROUTINE & RHYTHM STRIP 2022-04-13 Sapna Vargas [facility] 18:15:49 [facility] CONSENT/REFUSAL FOR DIAGNOSIS 2022-04-13 Doctor Unassigned, [place] of AND TREATMENT 18:05:14 [place] [facility] HOSPITAL ADMISSION 2022-04-13 Doctor Unassigned, [facility] 05:01:00 [place] [facility] SARS-COV-2 COVID-19 VACCINE 2022-02-19 Doctor Unassigned, U niversity of 12 YRS+,0.3ML,IM (PFIZER - 15:21:12 [place] [facility]) Branch URINE DRUG (IMMUNOASSAY) - 2021-11-23 Nichelle Allison U niversity of COMPREHENSIVE DRUG SCREEN W/O 21:21[place]00 [place] [facility] [place] HEAD WO CONTRAST 2021-[facility]-23 [facility] ty of 20:58:00 [facility] POCT TEST 2021-11-23 [facility] ty of 20:46:00 [facility] URINALYSIS 2021-11-23 [facility] o f 20:43:00 [facility]ASE [facility]11-[facility] 20:27:00 [facility] TROPONIN I 2021-11-23 [facility] o f 20:27:00 [facility] COMP. METABOLIC PANEL ([id number]) 2021-11-23 [facility] of 20:27:00 [facility] CBC WITH DIFF 2021-11-23 [facility] o f 20:27:00 [facility] POCT GLUCOSE (AUTOMATED) 2021-11-23 Doctor Unassigned, Univ ersity of 20:15:00 [place] [facility] SARS-COV-2 COVID-19 2021-05-24 Doctor Unassigned, Universit y of VACCINE,0.3ML,IM (PFIZER) 14:23:12 [place] [facility] SARS-COV-2 COVID-19 2021-05-03 Doctor Unassigned, Universit y of VACCINE,0.3ML,IM (PFIZER) 14:59:29 [place] [facility] EMERGENCY SERVICES AGREEMENTS 2021-04-16 Doctor Unassigned, University of AND AUTHORIZATIONS 05:01:00 [place] [facility] URINALYSIS 2021-03-17 Fabrice Chakraborty [place] of 03:09:00 [facility] XR CHEST 1 VW 2021-03-17 Fabrice Chakraborty [place] of 01:45:07 [facility] TROPONIN I 2021-03-17 Fabrice Chakraborty [place] of 01:35:00 [facility] COMP. METABOLIC PANEL ([id number]) 2021-03-17 Fabrice Chakraborty iversity of 01:35:00 [facility] CBC WITH DIFF 2021-03-[address] [facility] [place] of 01:35:00 [facility] N-TERMINAL PRO-BNP 2021-03-17 Fabrice Chakraborty [place] of 01:35:00 [facility] COVID-19 (ID NOW RAPID 2021-03-17 Brian Ray [facility] y of TESTING) 00:58:00 [facility] CONSENT/REFUSAL FOR DIAGNOSIS 2021-03-17 Doctor Unassigned, [facility] 00:32:59 [place] [facility] COVID-19 (ID NOW RAPID 2021-02-19 Anali Patel [facility] y of TESTING) 17:04:[address] [facility] [address] ABDOMEN PELVIS W CONTRAST 2021-02-19 Anali Patel Uni versity of 16:41:18 [facility] LIPASE 2021-02-19 Anali Patel [place] of 15:58:00 [facility] COMP. METABOLIC PANEL ([id number]) 2021-02-19 Anali Patel Un iversity of 15:58:00 [facility] CBC WITH DIFF 2021-02-19 Anali Patel [facility] 15:58:00 [facility] URINALYSIS 2021-02-19 Anali Patel [facility] 15:58:00 [facility] NOTICE OF PRIVACY PRACTICES 2021-02-19 Doctor Unassigned, U niversity of 15:30:46 [place] [facility] CONSENT/REFUSAL FOR DIAGNOSIS 2021-02-19 Doctor Unassigned, [facility] 15:30:30 [place] [facility] Plan of Care Planned Activity Planned Date Details Comments Source Goal Plan of Care Note [code = 97863-3] Goal Plan of Care Note [code = 03411-1] Goal Plan of Care Note [code = 92050-0] Goal Plan of Care Note [code = 92257-8] Goal Plan of Care Note [code = 80465-2] Goal Plan of Care Note [code = 80008-7] Goal Plan of Care Note [code = 67002-3] Goal Plan of Care Note [code = 34345-9] Goal Plan of Care Note [code = 02722-4] Goal Plan of Care Note [code = 28357-7] Goal Plan of Care Note [code = 63983-9] Goal Plan of Care Note [code = 52294-0] Goal Plan of Care Note [code = 34962-7] Goal Plan of Care Note [code = 12436-4] Goal Plan of Care Note [code = 68629-4] Encounters Start End Encounter Admission Attending Care Care Encounter Source Date/Time Date/Time Type Type Clinicians Facility Department ID 2021-05-20 Emergency [facility] [id number] Univers 18:48:04 ity [facility] 2021-05-20 Emergency [facility] [id number] Univers 12:43:40 ity [facility] 2022-05-23 2022-05-23 Outpatient SFA SFA [id number] Adria 14:51:01 14:51:01 1104 F Mauricio 2022-05-23 2022-05-23 Outpatient [id number] 00:00:00 00:00:00 Visit [id number] 2022-05-04 2022-05-08 Outpatient X CHANTEL MATTHEWS [facility] S [id number] Univers 20:22:00 14:44:00 [facility] 2022-05-08 Emergency Brandyn Mcfarlane [id number] Univers 20:22:00 14:44:00 Chantel Matthews [id number] ity [facility] [id number] [facility] [id number] [address] 2022-04-13 2022-04-[address] [facility] [id number] Univers 13:06:00 15:00:00 [facility] ity [facility] 2022-04-13 2022-04-15 Hospital Sapna Vargas [id number] Univers 13:06:00 15:00:00 Encounter Tyrel Glory JC 350. [id number] ity [facility] [id number] [place] [id number] [address] 2022-02-192022-02-19 Imm/Inj Vaccine, [facility] [place] [id number] Univers 10:20:00 10:30:00 Visit Jose Frederick SURYA 350.1.13.10 it[place] [facility] [phone] [facility] [address] 2022-02-19 2022-02-19 Outpatient R JOSE FREDERICK [facility] [id number] Univers 10:20:00 10:20:00 ity of [facility] 2021-11-23 2021-11-23 Emergency X ESTEFANY [facility] ERT [id number] Univers 15:07:00 17:03:00 FOLUSHO ity of [facility] 2021-11-23 2021-11-23 Emergency Sav Rondon [facility] 1.2.840. 114 [id number] Univers 15:07:00 17:03:00 [facility]helle [facility] 350.1.13. 10 ity of [place] 4.2.7.2.686 [facility] [phone] [facility] [address] 2021-11-21 2021-11-21 Outpatient R [facility] [id number] Univers 09:40:00 09:40:00 ity of [facility] 2021-05-24 2021-05-24 Outpatient R JOSE FREDERICK [facility] [id number] Univers 09:30:00 09:30:00 ity of [facility] 2021-05-24 2021-05-24 Imm/Inj Vaccine, [facility] [place] 1.2.840.114 [id number] Univers 08:47:51 08:57:51 Visit Jose Frederick 350.1.13.10 [place] [facility] [phone] [address] 2021-05-03 2021-05-03 Outpatient R JOSE FREDERICK [facility] 13461 [id number] Univers 09:40:00 09:59:35 ity of [facility] 2021-05-03 2021-05-03 Imm/Inj Vaccine, [facility] [place] 1.2.840.114 [id number] Univers 09:17:43 09:59:35 Visit Jose Frederick 350.1.13.10 [place] [facility] [phone] [facility] [address] 2021-04-16 2021-04-16 Orders Doctor EWELINA 1.2.840.114 [id number] Univers 00:00:00 00:00:00 Only Unassigned, HOSEA 350.1.13.10 ity of [place] [facility] 4.2.7.2.686 Javier as [phone] [facility] [address] 2021-03-17 2021-03-17 Telephone EWELINA Nava 1.2.185.438 [id number] Univers 00:00:00 00:00:00 Aneatrice HOSEA 350.1.13.10 ity of [facility] 4.2.7.2.686 Javier as [phone] [facility] [address] 2021-03-16 2021-03-16 Emergency Palmer [facility] 1.2.840.114 [id number] Univers 20:08:00 23:24:00 Fabrice Harrell 350.1.13.10 i ty of [place]7.2.686 [place] [facility] [phone] [facility] [address] 2021-03-14 2021-03-14 Urgent Lydia Desouza [facility] 1.2.840.114 [id number] Univers 18:59:34 20:19:13 Care Unknown, Attending Health 350.1.13.10 ity of [place] 4.2.7.2.686 Javire as Prem?Blea [phone] [address] [facility] 2021-03-14 2021-03-14 Outpatient R UNKNOWN, [facility] [id number] Univers 19:00:00 19:00:00 ATTENDING ity of [facility] 2021-02-19 2021-02-19 Emergency Eliana [facility] 1.2.110.720 [id number] Univers 10:49:00 14:48:00 Anali Harrell 350.1.13.10 i [place] [phone] [facility] [address] 2019-03-09 2019-03-09 Dick Arcos [facility] 1.2.840.114 [id number] [facility] 00:00:00 00:00:00 Yehuda Harrell 350.1.13.10 ity of [place] 4.2.7.2.686 [phone] [facility] 092 [facility] 2019-03-09 2019-03-09 Dick Arcos [facility] 1.2.840.114 [id number] 00:00:00 00:00:00 Yehuda Harrell 350.1.13.10 [place] 4.2.7.2.686 [facility] [phone] [address] Results Test Description Test Time Test Comments Results Result Comments Source BASIC METABOLIC PANEL (NA, K, CL, CO2, GLUCOSE, BUN, 2022-04 06:37:01 CREATININE, [place]) Test Item Value Reference Range Interpretation Comme nts NA (test code = 1487508915) 137 mmol/L 135-145 K (test code = 1061468349) 3.8 mmol/L 3.5-5 CL (test code = 6690969958) 103 mmol/L 98-108 CO2 TOTAL (test code = 6699791803) 24 mmol/L 23-31 AGAP (test code = 0512482713) 2-16 BUN (test code = 7138999750) 13 mg/dL 7-23 GLUCOSE (test code = 4570664231) 90 mg/dL 70-110 CREATININE (test code = 0.69 mg/dL 0.5-1.04 7773348950) CALCIUM (test code = 4904415165) 8.5 mg/dL 8.6-10.6 L eGFR (test code = 0706527070) mL/min/1.73m2 LYNDSAY (test code = LYNDSAY) Association [...] tests). Lab Interpretation (test code = Abnormal 91073-5) [facility]-20 06:37:01 Test Item Value Reference Range Interpretation Comments MAGNESIUM (test code = 2541664348) 2.1 mg/dL 1.7-2.4 Lab Interpretation (test code = Normal 94086-6) [facility]2022-10-20 06:37:01 Test Item Value Reference Range Interpretation Comments PHOSPHORUS (test code = 1867559828) 4.7 mg/dL 2.5-5 Lab Interpretation (test code = Normal 29049-1) [facility] WITH [id number] 06:11:54 Test Item Value Reference Range Interpretation Comments WBC (test code = See_Comment [Automated 0961-2) message] The sy stem which generated this result transmitted reference range : 4.30 - 11.10 10*3/?L. The reference range was not used to interpret this result as normal/abnormal . RBC (test code = See_Comment [Automated 724-6) message] The sy stem which generated this [...] (test code = 51.0 fL 39-49.9 H 30845-5) RDW-CV (test code = 16.5 % 12-15.5 H 788-0) PLT (test code = See_Comment H [Automated 777-3) message] The sy stem which generated this result transmitted reference range : 166 - 358 10*3/ ?L. The reference r zoe was not used to interpret this result as normal/abnormal . MPV (test code = 8.3 fL 9.5-12.9 L 70722-1) NRBC/100 WBC (test See_Comment [Automat ed code = 9222756543) message] The system which generated this result transmitted reference range : 0.0 - 10.0 /100 WBCs. The refer ence range was not u sed to interpret th is result as normal/abnormal . NRBC x10^3 (test code See_Comment [Auto mated = 6181685831) message] The s ystem which generated this result transmitted reference range : 10*3/?L. The reference range was not used to interpret this result as normal/abnormal . GRAN MAT (NEUT) % 64.5 % (test code = 770-8) IMM GRAN % (test code 0.50 % = 1121442641) LYMPH % (test code = 27.1 % 736-9) MONO % (test code = 6.6 % 5905-5) EOS % (test code = 0.6 % 713-8) BASO % (test code = 0.7 % 706-2) GRAN MAT x10^3(ANC) 5.28 10*3/uL 1.88-7.09 (test code = 9177314448) IMM GRAN x10^3 (test 0.04 10*3/uL 0-0.06 code = 3587357460) LYMPH x10^3 (test code 2.22 10*3/uL 1.32-3.29 = 731-0) MONO x10^3 (test code 0.54 10*3/uL 0.33-0.92 = 742-7) EOS x10^3 (test code = 0.05 10*3/uL 0.03-0.39 711-2) BASO x10^3 (test code 0.06 10*3/uL 0.01-0.07 = 704-7) Lab Interpretation Abnormal (test code = 34429-0) [facility])2022-05-07 01:18:10 Test Item Value Reference Range Interpretation Comments POCT GLU (test code = 3893761893) 120 mg/dL 70-110 H Lab Interpretation (test code = Abnormal 98524-6) [facility] CenterType and Screen - ONCE [id number] 05:46:35 Test Item Value Reference Range Interpretation Comments ABO & RH (test code O POSITIVE Performe d at [facility] = 20) Laboratory Serv [facility] Blood [facility]3 [facility] s [address]98Kkjr Free: [phone] A No. [id number] IAT (test code = Negative Performed a t [facility] 1185) Laboratory Serv [facility] Blood [facility]3 [facility] s [id number] Free: [phone] A No. [id number] [facility] CenterBASIC [facility]OLIC PANEL (NA, K, CL, CO2, GLUCOSE, BUN, CREATININE, CA)2022-05-05 08:22:57 Test Item Value Reference Range Interpretation Comments NA (test code = 136 mmol/L 135-145 1727061740) K (test code = 4.9 mmol/L 3.5-5 4149080400) CL (test code = 108 mmol/L 98-108 2598343994) CO2 TOTAL (test code = 22 mmol/L 23-31 L 6893121873) AGAP (test code = 2-16 2413176311) BUN (test code = 12 mg/dL 7-23 9313467020) GLUCOSE (test code = 155 mg/dL 70-110 H 5000590925) CREATININE (test code = 0.63 mg/dL 0.5-1.04 8099815552) CALCIUM (test code = 8.4 mg/dL 8.6-10.6 L 5818748619) eGFR (test code = mL/min/1.73m2 2574173297) LYNDSAY (test code = LYNDSAY) Association of [...] tests). Lab Interpretation Abnormal (test code = 07209-7) [facility] CenterPROTHROMBIN TIME / [id number] 08:22:37 Test Item Value Reference Range Interpretation Comments PROTIME PATIENT (test See_Comment [Auto mated message] code = 5964-2) The system [employer] generated this result transmitted ref erence range: 10.1 - 1 2.6 Seconds. The re ference range was not u sed to interpret this result as normal/abnor mal. INR (test code = 6301-6) Nor mal INR <1.1; Warfarin Therap eutic range 2.0 to 3. 0 or 2.5 to 3.5, dep ending upon the indica tions. Lab Interpretation (test Normal code = 97689-2) [facility] CenteraPTT2022-10-17 08:22:37 Test Item Value Reference Range Interpretation Comments APTT Patient (test code = See_Comment [ Automated message] 3173-2) The system whic h generated this result transmitted ref erence range: 26 - 36 Seconds. The re ference range was not u sed to interpret this result as normal/abnor mal. Lab Interpretation (test Normal code = 93928-2) [facility] CenterFIBRINOGEN2022-10-17 08:22:37 Test Item Value Reference Range Interpretation Comments Fibrinogen (test code = 3641813957) 294 mg/dL 167-453 Lab Interpretation (test code = Normal 13772-2) [facility] CenterCB WITH [id number] 08:15:01 Test Item Value Reference Range Interpretation Comments WBC (test code = See_Comment [Automated 9290-2) message] The sy stem which generated this result transmitted reference range : 4.30 - 11.10 10*3/?L. The reference range was not used to interpret this result as normal/abnormal . RBC (test code = See_Comment [Automated 979-8) message] The sy stem which generated this [...] (test code = 52.9 fL 39-49.9 H 33546-5) RDW-CV (test code = 16.8 % 12-15.5 H 788-0) PLT (test code = See_Comment H [Automated 777-3) message] The sy stem which generated this result transmitted reference range : 166 - 358 10*3/ ?L. The reference r zoe was not used to interpret this result as normal/abnormal . MPV (test code = 8.3 fL 9.5-12.9 L 24234-0) NRBC/100 WBC (test See_Comment [Automat ed code = 9473883580) message] The system which generated this result transmitted reference range : 0.0 - 10.0 /100 WBCs. The refer ence range was not u sed to interpret th is result as normal/abnormal . NRBC x10^3 (test code See_Comment [Auto mated = 9289405352) message] The s ystem which generated this result transmitted reference range : 10*3/?L. The reference range was not used to interpret this result as normal/abnormal . GRAN MAT (NEUT) % 86.4 % (test code = 770-8) IMM GRAN % (test code 0.40 % = 8174461241) LYMPH % (test code = 11.7 % 736-9) MONO % (test code = 1.1 % 5905-5) EOS % (test code = 0.0 % 713-8) BASO % (test code = 0.4 % 706-2) GRAN MAT x10^3(ANC) 6.36 10*3/uL 1.88-7.09 (test code = 0040014605) IMM GRAN x10^3 (test 0.03 10*3/uL 0-0.06 code = 1504554717) LYMPH x10^3 (test code 0.86 10*3/uL 1.32-3.29 L = 731-0) MONO x10^3 (test code 0.08 10*3/uL 0.33-0.92 L = 742-7) EOS x10^3 (test code = 0.03-0.39 L 711-2) BASO x10^3 (test code 0.03 10*3/uL 0.01-0.07 = 704-7) Lab Interpretation Abnormal (test code = 61710-2) [facility] CenterVITAMIN D, [id number] 20:14:03 Test Item Value Reference Range Interpretation Comments VIT D 25OH (test code = 22 ng/mL 25-80 L 81496-6) LYNDSAY (test code = LYNDSAY) Deficiency: <20 ng/mLInsufficiency: 20-24 ng/mLOptimal: 25-80 ng/mL Lab Interpretation (test Abnormal code = 16072-2) [facility] METABOLIC PANEL (NA, K, CL, CO2, GLUCOSE, BUN, CREATININE, CA)2022-04-15 11:27:57 Test Item Value Reference Range Interpretation Comments NA (test code = 138 mmol/L 135-145 7523044790) K (test code = 3.9 mmol/L 3.5-5 4242898143) CL (test code = 106 mmol/L 98-108 3047162358) CO2 TOTAL (test code = 23 mmol/L 23-31 0826549801) AGAP (test code = 2-16 9906672229) BUN (test code = 10 mg/dL 7-23 9304797831) GLUCOSE (test code = 91 mg/dL 70-110 6101023472) CREATININE (test code = 0.65 mg/dL 0.5-1.04 6695877140) CALCIUM (test code = 8.1 mg/dL 8.6-10.6 L 6179204966) eGFR (test code = mL/min/1.73m2 1860776775) LYNDSAY (test code = LYNDSAY) Association of [...] tests). Lab Interpretation Abnormal (test code = 91356-8) [facility] Protocol - Transthoracic echo (TTE) 2022-04-14 22:07:33 Test Item Value Reference Range Interpretation Comments Height (test code = in 6157113696) Weight (test code = lbs 6710542435) Systolic BP (test code = mmHg 6694408959) Diastolic BP (test code mmHg = 1198801225) Heart Rate (test code = bpm 4853062287) BSA (test code = 1.94 m2 6175382809) TASV (test code = 15.5 cm/s 6321783887) LVIDD (test code = 6.00 cm 5868769293) Left Ventricular End 183.0 mL Diastolic Volume by Teichholz Method (test code = 4813476) IVS (test code = 1.09 cm 1449971601) Interventricular Septum 1.09 cm Diastolic Thickness by 2D (test code = 3701229) LVPWD (test code = 0.94 cm 8249276682) PW (test code = 0.94 cm 0.6-1.6 7528136885) EF(Teich) (test code = 40.30 % 7351057441) LVIDS (test code = 4.80 cm 9726896809) Left Ventricular End 109.2 mL Systolic Volume by Teichholz Method (test code = 6137932) FS (test code = 20 % 5368433421) EF - 2D (test code = 40.30 % 83743843) LVOT diameter (test code 2.05 cm = 5352088559) LVOT area (test code = 3.30 cm2 7579049821) Ao root diam (test code 3.10 cm = 3208933839) Aortic root (test code = 3.1 cm 7230303348) Ao root annulus (test 3.1 cm code = 9708917534) LA size (test code = 4.2 cm 5943374956) LAV(MOD-sp4) (test code 64.90 mL = 7871860047) MV Peak A Evette (test code 115.7 cm/s = 0847217778) E wave decelartion time 0.15 s (test code = 5588905074) MV Peak E Evette (test code 106.2 cm/s = 6359521529) E/A ratio (test code = ratio 6073735086) LVOT stroke volume (test 48.30 cm3 code = 5720825818) LVOT peak evette (test code 78.4 cm/s = 7587137450) LVOT mn grad (test code mmHg = 9067974975) AV LVOT peak gradient mmHg (test code = 2556952571) LVOT peak VTI (test code 14.7 cm = 6046428333) LV V1 mean (test code = 51.40 cm/s 6246534350) Ao peak evette (test code = 154.7 cm/s 0242075909) AV area peak evette (test 1.7 cm2 code = 4929184994) Ao max PG (test code = 9.60 mm[Hg] 4356643966) AV peak gradient (test mmHg code = 7731996058) AV regurgitation 257.3 ms pressure 1/2 time (test code = 0897885361) AI dec slope (test code 498.10 cm/s2 = 1015060621) AI max evette (test code = 437.60 cm/s 8881254596) AI max PG (test code = 77.80 mm[Hg] 2760210729) Tapse (test code = 2.19 cm 1535798749) LA Volume Index (BP) 32.0 mL/m2 (test code = 2466459335) LA volume (BP) (test 62.1 mL code = 8037640375) LAV(MOD-sp2) (test code 52.70 mL = 5048161147) A4C EF (test code = 44.80 % 2988652830) EF(sp4-el) (test code = 45.20 % 0158514311) SV(MOD-sp4) (test code = 71.20 mL 7092179434) SV(sp4-el) (test code = 73.90 mL 0404841549) LV Diastolic Volume (BP) 146.3 mL (test code = 0434986946) A2C EF (test code = 52.00 % 5431863411) EF(MOD-bp) (test code = 46.70 % 5891770464) EF(sp2-el) (test code = 52.40 % 3909495694) LV Systolic Volume (BP) 77.9 mL (test code = 7461682606) SV(MOD-bp) (test code = 68.40 mL 7218509504) SV(MOD-sp2) (test code = 69.20 mL 3501411070) EF (test code = 1220366015) Left Ventricular Stroke 68.4 mL Volume by 2-D Biplane-MOD (test code = 6796506) Radiology Study observation (narrative) (test code = 98024-1) LYNDSAY (test code = LYNDSAY) ?Left?Ventricle: Left [...] agent used and saline contrast was performed. [facility] CenterKEPPRA (LEVETIRACETAM)2022-04-14 16:48:36 Test Item Value Reference Range Interpretation Comments KEPPRA (test code = 12-46 L 9364257465) LYNDSAY (test code = LYNDSAY) Therapeutic range: 12-46 ?g/mL ? ?Toxic: Not well established.Test developed and characteristics determined by [facility] Laboratory Services. Lab Interpretation Abnormal (test code = 78102-8) [facility] Metabolic Panel (Na, K, Cl, CO2, Glucose, BUN, Creatinine, Ca)2022-04-14 10:50:11 Test Item Value Reference Range Interpretation Comments NA (test code = 136 mmol/L 135-145 4929213804) K (test code = 3.8 mmol/L 3.5-5 5595007630) CL (test code = 105 mmol/L 98-108 6520305964) CO2 TOTAL (test code = 25 mmol/L 23-31 1552166995) AGAP (test code = 2-16 8206135814) BUN (test code = 9 mg/dL 7-23 9524671341) GLUCOSE (test code = 101 mg/dL 70-110 6153875985) CREATININE (test code = 0.66 mg/dL 0.5-1.04 2541484742) CALCIUM (test code = 8.1 mg/dL 8.6-10.6 L 2201587109) eGFR (test code = mL/min/1.73m2 2486958488) LYNDSAY (test code = LYNDSAY) Association of [...] tests). Lab Interpretation Abnormal (test code = 50200-0) [facility] CenterMagensium, [id number] 10:50:11 Test Item Value Reference Range Interpretation Comments MAGNESIUM (test code = 4563972370) 1.9 mg/dL 1.7-2.4 Lab Interpretation (test code = Normal 65128-8) [facility] CenterThyroid Stimulating [id number] 22:21:44 Test Item Value Reference Range Interpretation Comments TSH (test code = See_Comment Biotin has been 7524294893) reported to cau se a negative bias, interpret resul ts relative to autumn garcia's use of biotin. [Automated mess age] The system [employer] generated this result transmitted ref erence range: 0.45 - 4 .70 mIU/L. The refe rence range was not u sed to interpret this result as normal/abnor mal. Lab Interpretation (test Normal code = 25710-4) [facility] CenterGLYCOSYLATED HEMOGLOBIN (A1C)2022-04-13 21:53:43 Test Item Value Reference Range Interpretation Comments HGB A1C (test code = 5.8 % 4-5.7 H 4548-4) LYNDSAY (test code = LYNDSAY) Reference RangesNormal: <5.7%Prediabetes: 5.7 - 6.4%Diabetes: > 6.5% Lab Interpretation (test Abnormal code = 90568-0) [facility] CenterFASTING LIPID PANEL (54371)(TOTAL CHOLESTEROL, TRIGLYCERIDES, HDL)2022-04-13 21:34:53 Test Item Value Reference Range Interpretation Comments CHOL (test code = 201 mg/dL 120-200 H 1989507617) HDL (test code = 56 mg/dL See_Comment [Automated message] 5423673104) The system [employer] generated this result transmit sherice reference range : >=50. The refer ence range was not u sed to interpret th is result as normal/abnormal . HDLC RATIO (test code = See_Comment [Au tomated message] 1922933518) The system [employer] generated this result transmit sherice reference range : <=4.5. The refe rence range was not u sed to interpret th is result as normal/abnormal . TRIG (test code = 355 mg/dL 30-170 H 1170843562) LDL CHOL (test code = 74 mg/dL See_Comment [Auto mated message] 60079-8) The system [employer] generated this result transmit sherice reference range : <=160. The refe rence range was not u sed to interpret th is result as normal/abnormal . VLDL (test code = 71 mg/dL 5-60 H 9952037770) Lab Interpretation (test Abnormal code = 93171-6) [facility] CenterTroponin I - Code [id number] 18:46:27 Test Item Value Reference Interpretation Comments Range TROPONIN I (test 0.013 ng/mL See_Comment [Automated code = 5427009483) message] The system which generated this result [...] biotin. Lab Interpretation Normal (test code = 34717-1) [facility] Metabolic Panel (NA, K, CL, CO2, Glucose, BUN, Creatinine, CA) - Code [id number] 18:35:07 Test Item Value Reference Range Interpretation Comments NA (test code = 136 mmol/L 135-145 7386333099) K (test code = 4.3 mmol/L 3.5-5 6968979864) CL (test code = 105 mmol/L 98-108 2999136525) CO2 TOTAL (test code = 27 mmol/L 23-31 1261695195) AGAP (test code = 2-16 6803937434) BUN (test code = 8 mg/dL 7-23 0885218912) GLUCOSE (test code = 130 mg/dL 70-110 H 4403316974) CREATININE (test code = 0.75 mg/dL 0.5-1.04 7035097905) CALCIUM (test code = 8.5 mg/dL 8.6-10.6 L 1650383819) eGFR (test code = mL/min/1.73m2 9882337003) LYNDSAY (test code = LYNDSAY) Association of [...] tests). Lab Interpretation Abnormal (test code = 03397-4) [facility] CenteraPTT - Code [id number] 18:32:46 Test Item Value Reference Range Interpretation Comments APTT Patient (test See_Comment [Automat ed code = 3173-2) message] The system which generated this result transmitted reference range : 23 - 38 Seconds . The reference range was not used to interpr et this result as normal/abnormal . LYNDSAY (test code = LYNDSAY) The [facility] patient population mean normal value for aPTT is 30 seconds. Lab Interpretation Normal (test code = 04752-5) [facility] CenterProthrombin Time / INR - Code [id number] 18:30:45 Test Item Value Reference Range Interpretation Comments PROTIME PATIENT (test See_Comment [Auto mated message] code = 5964-2) The system [employer] generated this result transmitted ref erence range: 12.0 - 1 4.7 Seconds. The re ference range was not u sed to interpret this result as normal/abnor mal. INR (test code = 6301-6) Nor mal INR <1.1; Warfarin Therap eutic range 2.0 to 3. 0 or 2.5 to 3.5, dep ending upon the indica tions. Lab Interpretation (test Normal code = 90472-5) [facility] CenterCBC without Diff - Code [id number] 18:23:07 Test Item Value Reference Range Interpretation Comments WBC (test code = 6690-2) See_Comment [A utomated message] The system [employer] h generated this result transmit sherice reference range : 4.30 - 11.10 10*3/?L. The reference range was not used to interpret this result as normal/abnormal . RBC (test code = 789-8) See_Comment [Au tomated message] The system [employer] generated this result transmit sherice reference range [...] See_Comment H [Au tomated message] The system [employer] generated this result transmit sherice reference range : 166 - 358 10*3/?L. The reference range was not used to interpret this result as normal/abnormal . MPV (test code = 8.1 fL 9.5-12.9 L 67936-0) RDW-CV (test code = 16.1 % 12-15.5 H 788-0) RDW-SD (test code = 49.2 fL 39-49.9 65283-7) NRBC x10^3 (test code = See_Comment [Au tomated message] 5873140622) The system [employer] generated this result transmit sherice reference range : 10*3/?L. The reference range was not used to interpret this result as normal/abnormal . NRBC/100 WBC (test code See_Comment [Au tomated message] = 8905222220) The system [facility] generated this result transmit sherice reference range : 0.0 - 10.0 /100 WBC s. The reference r zoe was not used to interpret this result as normal/abnormal . IPF % (test code = 5178570580) Lab Interpretation (test Abnormal code = 40220-0) [facility] CenterTRVIKI [id number] 21:06:40 Test Item Value Reference Interpretation Comments Range TROPONIN I (test 0.005 ng/mL See_Comment [Automated code = 4482108068) message] The system which generated this result [...] biotin. Lab Interpretation Normal (test code = 35359-3) [facility]. METABOLIC PANEL (17452)2021-11-23 20:55:42 Test Item Value Reference Range Interpretation Comments NA (test code = 137 mmol/L 135-145 8268298587) K (test code = 4.3 mmol/L 3.5-5.0 5236426627) CL (test code = 104 mmol/L 98-108 5622649522) CO2 TOTAL (test code = 22 mmol/L 23-31 L 4472400067) AGAP (test code = 2-16 0950046713) BUN (test code = 15 mg/dL 7-23 0409052602) GLUCOSE (test code = 114 mg/dL 70-110 H 8581864205) CREATININE (test code = 0.68 mg/dL 0.50-1.04 7438752288) TOTAL BILI (test code = 0.5 mg/dL 0.1-1.4 9761692486) CALCIUM (test code = 9.1 mg/dL 8.6-10.6 7168602550) T PROTEIN (test code = 7.3 g/dL 6.3-8.2 3991865306) ALBUMIN (test code = 4.4 g/dL 3.5-5.0 8361009717) ALK PHOS (test code = 243 U/L 34-122 H [id number]) ALTv (test code = 24 U/L 5-35 1742-6) AST(SGOT) (test code = 30 U/L 13-40 0187243492) eGFR (test code = mL/min/1.73m2 2529496316) LYNDSAY (test code = LYNDSAY) Association of [...] tests). Lab Interpretation Abnormal (test code = 70385-5) [facility]55:22 Test Item Value Reference Range Interpretation Comments LIPASE (test code = 8040183815) 96 U/L 0-220 Lab Interpretation (test code = Normal 52790-7) [id number] 20:46:00 Test Item Value Reference Range Interpretation Comments POCT PREG (test code = 1605) negative On board controls acceptable with present C Line (test code = 3574) POCT PREG LOT # (test code = 3575) [id number] POCT PREG TEST DATE (test 04/18/2023 code = 3576) Lab Interpretation (test code = Normal 91614-0) [facility] WITH [id number] 20:40:38 Test Item Value Reference Range Interpretation [...] (test code = 53.7 fL 39.0-49.9 H 94578-5) RDW-CV (test code = 17.2 % 12.0-15.5 H 788-0) PLT (test code = See_Comment H [Automated 777-3) message] The sy stem which generated this result transmitted reference range : 166 - 358 10*3/ ?L. The reference r zoe was not used to interpret this result as normal/abnormal . MPV (test code = 8.5 fL 9.5-12.9 L 83960-1) NRBC/100 WBC (test See_Comment [Automat ed code = 7272302002) message] The system which generated this result transmitted reference range : 0.0 - 10.0 /100 WBCs. The refer ence range was not u sed to interpret th is result as normal/abnormal . NRBC x10^3 (test code <0.01 See_Comment [Auto mated = 4732339431) message] The s ystem which generated this result transmitted reference range : 10*3/?L. The reference range was not used to interpret this result as normal/abnormal . GRAN MAT (NEUT) % 53.7 % (test code = 770-8) IMM GRAN % (test code 0.90 % = 7810585516) LYMPH % (test code = 32.6 % 736-9) MONO % (test code = 10.1 % 5905-5) EOS % (test code = 1.5 % 713-8) BASO % (test code = 1.2 % 706-2) GRAN MAT x10^3(ANC) 4.98 10*3/uL 1.88-7.09 (test code = 2686894547) IMM GRAN x10^3 (test 0.08 10*3/uL 0.00-0.06 H code = 7714154736) LYMPH x10^3 (test code 3.02 10*3/uL 1.32-3.29 = 731-0) MONO x10^3 (test code 0.94 10*3/uL 0.33-0.92 H = 742-7) EOS x10^3 (test code = 0.14 10*3/uL 0.03-0.39 711-2) BASO x10^3 (test code 0.11 10*3/uL 0.01-0.07 H = 704-7) Lab Interpretation Abnormal (test code = 93819-7) [facility]2021-11-23 20:17:33 Test Item Value Reference Range Interpretation Comments POCT GLU (test code = 111 mg/dL 70-110 H Notifi ed Provider [id number]) Lab Interpretation (test Abnormal code = 15189-6) [facility], THINPREP, [id number] 00:00:00 Test Item Value Reference Range Interpretation Comments SOURCE: (test code = Endocervical 8001) SLIDES: (test code = 1 8011) LMP: (test code = 8021) 06/03/2021 SPECIMEN ADEQUACY: (test (NOTE) code = 52242) INTERPRETATION: (test ASCUS/EPITH. code = 46727) ABNORMALITY; SEE BELOW COTTON INSPECTOR: (test Anusha code = 8101) CHANA Sepulveda(ASCP)IAC PATHOLOGIST Nahid Russell, INTERPRETATION BY: (test M.D. code = 8122) LOCATION: (test code = (NOTE) 37990) CPT: (test code = 8140) (NOTE) PAP TEST, THINPREP, [id number] 00:00:00 Test Item Value Reference Range Interpretation Comments SOURCE: (test code = Endocervical 8001) SLIDES: (test code = 1 8011) LMP: (test code = 8021) 06/03/2021 SPECIMEN ADEQUACY: (test (NOTE) code = 25988) INTERPRETATION: (test ASCUS/EPITH. code = 26933) ABNORMALITY; SEE BELOW COTTON INSPECTOR: (test Anusha code = 8101) CHANA Sepulveda(ASCP)IAC PATHOLOGIST Nahid Russell, INTERPRETATION BY: (test M.D. code = 8122) LOCATION: (test code = (NOTE) 06910) CPT: (test code = 8140) (NOTE) HPV HIGH RISK WITH GENOTYPE, [id number] 00:00:00 Test Item Value Reference Range Interpretation Comments HPV HIGH RISK INTERP (test code = POSITIVE 32695) HPV 16 (test code = 54106) POSITIVE HPV 18 (test code = 91183) NEGATIVE HPV, HR, OTHER GENOTYPES (test code POSITIVE = 19169) HPV HIGH RISK WITH GENOTYPE, [id number] 00:00:00 Test Item Value Reference Range Interpretation Comments HPV HIGH RISK INTERP (test code = POSITIVE 98287) HPV 16 (test code = 60054) POSITIVE HPV 18 (test code = 06916) NEGATIVE HPV, HR, OTHER GENOTYPES (test code POSITIVE = 80545) [id number] 03:22:48 Test Item Value Reference Range Interpretation Comments APPEARANCE (test code = Hazy Clear A 2701191729) COLOR (test code = Yellow Yellow 7805323917) PH (test code = 4.8-8.0 9250797871) SP GRAVITY (test code = 1.003-1.030 0223496916) GLU U QUAL (test code = Normal Normal 1668337144) BLOOD (test code = Negative Negative Interfere nce from 5994485723) ascorbic acid m ay cause false neg ative results. KETONES (test code = 5 mg/dL Negative A 9908274116) PROTEIN (test code = Negative Negative 2887-8) UROBILIN (test code = 4.0 mg/dL Normal A 3415721022) BILIRUBIN (test code = Negative Negative 6720954921) NITRITE (test code = Negative Negative 9333957881) LEUK GRUPO (test code = Negative Negative 3056124362) RBC/HPF (test code = See_Comment [Autom ated message] 9478751813) The system Mixbook generated this result transmitted ref erence range: 0 - 3 HP F. The reference range was not used to int erpret this result as normal/abnormal . WBC/HPF (test code = <1 See_Comment [Autom ated message] 1303375086) The system Mixbook generated this result transmitted ref erence range: 0 - 5 HP F. The reference range was not used to int erpret this result as normal/abnormal . BACTERIA (test code = Few Negative A 7578181345) SQ EPITH (test code = HPF 5961599032) Lab Interpretation Abnormal (test code = 85231-7) [facility] CenterURINALYSIS2021-08-29 03:22:48 Test Item Value Reference Range Interpretation Comments APPEARANCE (test code = Hazy Clear A 5861271683) COLOR (test code = Yellow Yellow 7589606866) PH (test code = 4.8-8.0 8737703324) SP GRAVITY (test code = 1.003-1.030 9568773457) GLU U QUAL (test code = Normal Normal 8984639678) BLOOD (test code = Negative Negative 9766693010) KETONES (test code = 5 mg/dL Negative A 3465856074) PROTEIN (test code = Negative Negative 2887-8) UROBILIN (test code = 4.0 mg/dL Normal A 9100476647) BILIRUBIN (test code = Negative Negative 7135517310) NITRITE (test code = Negative Negative 9944919720) LEUK GRUPO (test code = Negative Negative 9002508031) RBC/HPF (test code = See_Comment [Autom ated message] 2322925806) The system Mixbook generated this result transmit sherice reference range : 0 - 3 HPF. The refe rence range was not u sed to interpret th is result as normal/abnormal . WBC/HPF (test code = <1 See_Comment [Autom ated message] 8701970814) The system Mixbook generated this result transmit sherice reference range : 0 - 5 HPF. The refe rence range was not u sed to interpret th is result as normal/abnormal . BACTERIA (test code = Few Negative A 7429109734) SQ EPITH (test code = HPF 4978497200) Lab Interpretation (test Abnormal code = 78443-4) [facility] [id number] 02:45:00 Test Item Value Reference Interpretation Comments Range TROPONIN I (test 0.002 ng/mL See_Comment [Automated code = 0258020852) message] The system which generated this result [...] biotin. Lab Interpretation Normal (test code = 03544-7) [facility] [id number] 02:45:00 Test Item Value Reference Range Interpretation Comments TROPONIN I (test code = 0.002 ng/mL See_Comment [Au tomated 9217509862) message] The sy stem which generated this result transmitted reference range : <=0.034. The reference range was not used to interpret this result as normal/abnormal . LYNDSAY (test code = LYNDSAY) Lab Interpretation Normal (test code = 39934-4) [facility] CenterN-TERMINAL [id number] 02:41:57 Test Item Value Reference Range Interpretation Comments NT-proBNP (test code 169 pg/mL See_Comment H [Autom ated = 0601292054) message] The system which generated this result transmitted reference range : <=125. The reference range was not used to interpret this result as normal/abnormal . LYNDSAY (test code = LYNDSAY) Biotin has been reported to cause a negative bias, interpret results relative to patient's use of biotin. Lab Interpretation Abnormal (test code = 26185-8) [facility]MINAL [id number] 02:41:57 Test Item Value Reference Range Interpretation Comments NT-proBNP (test code = 169 pg/mL See_Comment H [Aut omated message] 0040559328) The system Mixbook generated this result transmit sherice reference range : <=125. The refe rence range was not u sed to interpret th is result as normal/abnormal . LYNDSAY (test code = LYNDSAY) Lab Interpretation (test Abnormal code = 49342-7) [facility] CenterCOMP. METABOLIC PANEL (79453)2021-03-17 02:09:13 Test Item Value Reference Range Interpretation Comments NA (test code = 137 mmol/L 135-145 8733362200) K (test code = 4.2 mmol/L 3.5-5.0 7514263482) CL (test code = 102 mmol/L 98-108 8075071528) CO2 TOTAL (test code = 25 mmol/L 23-31 9342767261) AGAP (test code = 2-16 9535431091) BUN (test code = 18 mg/dL 7-23 9211631237) GLUCOSE (test code = 144 mg/dL 70-110 H 1469391140) CREATININE (test code = 0.77 mg/dL 0.50-1.04 9025161656) TOTAL BILI (test code = 0.4 mg/dL 0.1-1.9 7922431983) CALCIUM (test code = 8.9 mg/dL 8.6-10.6 5358585884) T PROTEIN (test code = 6.8 g/dL 6.3-8.2 9960423600) ALBUMIN (test code = 3.9 g/dL 3.5-5.0 8724804148) ALK PHOS (test code = 84 U/L 34-122 3424252944) ALTv (test code = 13 U/L 5-35 1742-6) AST(SGOT) (test code = 17 U/L 13-40 0635738529) eGFR (test code = mL/min/1.73m2 6860227564) LYNDSAY (test code = LYNDSAY) Association of [...] tests). Lab Interpretation Abnormal (test code = 08623-3) [facility]. METABOLIC PANEL (58836)2021-03-17 02:09:13 Test Item Value Reference Range Interpretation Comments NA (test code = 3451369231) 137 mmol/L 135-145 K (test code = 3988951888) 4.2 mmol/L 3.5-5.0 CL (test code = 5402660283) 102 mmol/L 98-108 CO2 TOTAL (test code = 6470465677) 25 mmol/L 23-31 AGAP (test code = 6909321738) 2-16 BUN (test code = 5139666971) 18 mg/dL 7-23 GLUCOSE (test code = 8460853648) 144 mg/dL 70-110 H CREATININE (test code = 0.77 mg/dL 0.50-1.04 6885646560) TOTAL BILI (test code = 0.4 mg/dL 0.1-1.8 0838607510) CALCIUM (test code = 6718898435) 8.9 mg/dL 8.6-10.6 T PROTEIN (test code = 9345563185) 6.8 g/dL 6.3-8.2 ALBUMIN (test code = 5885534191) 3.9 g/dL 3.5-5.0 ALK PHOS (test code = 1998431446) 84 U/L 34-122 ALTv (test code = 1742-6) 13 U/L 5-35 AST(SGOT) (test code = 6540436003) 17 U/L 13-40 eGFR (test code = 5372415321) mL/min/1.73m2 LYNDSAY (test code = LYNDSAY) Lab Interpretation (test code = Abnormal 78762-8) [facility] WITH [id number] 01:56:33 Test Item Value Reference Range Interpretation [...] (test code = 55.5 fL 39.0-49.9 H 41118-8) RDW-CV (test code = 18.9 % 12.0-15.5 H 788-0) PLT (test code = See_Comment H [Automated 777-3) message] The sy stem which generated this result transmitted reference range : 166 - 358 10*3/ ?L. The reference r zoe was not used to interpret this result as normal/abnormal . MPV (test code = 8.2 fL 9.5-12.9 L 45210-2) NRBC/100 WBC (test See_Comment [Automat ed code = 0755155894) message] The system which generated this result transmitted reference range : 0.0 - 10.0 /100 WBCs. The refer ence range was not u sed to interpret th is result as normal/abnormal . NRBC x10^3 (test code <0.01 See_Comment [Auto mated = 7683137569) message] The s ystem which generated this result transmitted reference range : 10*3/?L. The reference range was not used to interpret this result as normal/abnormal . GRAN MAT (NEUT) % 61.7 % (test code = 770-8) IMM GRAN % (test code 0.80 % = 5496007760) LYMPH % (test code = 28.5 % 736-9) MONO % (test code = 6.3 % 5905-5) EOS % (test code = 1.8 % 713-8) BASO % (test code = 0.9 % 706-2) GRAN MAT x10^3(ANC) 7.31 10*3/uL 1.88-7.09 H (test code = 8760926360) IMM GRAN x10^3 (test 0.09 10*3/uL 0.00-0.06 H code = 9010390396) LYMPH x10^3 (test code 3.38 10*3/uL 1.32-3.29 H = 731-0) MONO x10^3 (test code 0.75 10*3/uL 0.33-0.92 = 742-7) EOS x10^3 (test code = 0.21 10*3/uL 0.03-0.39 711-2) BASO x10^3 (test code 0.11 10*3/uL 0.01-0.07 H = 704-7) Lab Interpretation Abnormal (test code = 01519-8) [facility] WITH [id number] 01:56:33 Test Item Value Reference Range Interpretation [...] (test code = 55.5 fL 39.0-49.9 H 74555-3) RDW-CV (test code = 18.9 % 12.0-15.5 H 788-0) PLT (test code = See_Comment H [Automated 777-3) message] The sy stem which generated this result transmitted reference range : 166 - 358 10*3/ ?L. The reference r zoe was not used to interpret this result as normal/abnormal . MPV (test code = 8.2 fL 9.5-12.9 L 93958-5) NRBC/100 WBC (test See_Comment [Automat ed code = 8184985749) message] The system which generated this result transmitted reference range : 0.0 - 10.0 /100 WBCs. The refer ence range was not u sed to interpret th is result as normal/abnormal . NRBC x10^3 (test code <0.01 See_Comment [Auto mated = 9127947196) message] The s ystem which generated this result transmitted reference range : 10*3/?L. The reference range was not used to interpret this result as normal/abnormal . GRAN MAT (NEUT) % 61.7 % (test code = 770-8) IMM GRAN % (test code 0.80 % = 2434129548) LYMPH % (test code = 28.5 % 736-9) MONO % (test code = 6.3 % 5905-5) EOS % (test code = 1.8 % 713-8) BASO % (test code = 0.9 % 706-2) GRAN MAT x10^3(ANC) 7.31 10*3/uL 1.88-7.09 H (test code = 3376152855) IMM GRAN x10^3 (test 0.09 10*3/uL 0.00-0.06 H code = 8411178252) LYMPH x10^3 (test code 3.38 10*3/uL 1.32-3.29 H = 731-0) MONO x10^3 (test code 0.75 10*3/uL 0.33-0.92 = 742-7) EOS x10^3 (test code = 0.21 10*3/uL 0.03-0.39 711-2) BASO x10^3 (test code 0.11 10*3/uL 0.01-0.07 H = 704-7) Lab Interpretation Abnormal (test code = 58045-4) [facility] ([facility] NOW RAPID TESTING)2021-03-17 01:38:12 Test Item Value Reference Range Interpretation Comments SARS-CoV-2 Rapid ID NOW Not Detected Not Detected (test code = 12102-0) LYNDSAY (test code = LYNDSAY) ID NOW COVID-19 Assay is an isothermal nucleic acid amplification test intended for the qualitative detection of nucleic acid from SARS-CoV-2 viral RNA in nasopharyngeal (BUMPER MACHINE OPERATOR) specimens. It is used under Emergency [...] indicated. Lab Interpretation Normal (test code = 60836-7) [facility] ([facility] NOW RAPID TESTING)2021-03-17 01:38:12 Test Item Value Reference Range Interpretation Comments SARS-CoV-2 Rapid ID NOW (test Not Detected Not Detected code = 81779-0) LYNDSAY (test code = LYNDSAY) Lab Interpretation (test code = Normal 01242-8) [facility] (ID NOW RAPID TESTING)2021-02-19 17:42:45 Test Item Value Reference Range Interpretation Comments SARS-CoV-2 Rapid ID NOW Not Detected Not Detected (test code = 94832-1) LYNDSAY (test code = LYNDSAY) ID NOW COVID-19 Assay is an isothermal nucleic acid amplification test intended for the qualitative detection of nucleic acid from SARS-CoV-2 viral RNA in nasopharyngeal (BUMPER MACHINE OPERATOR) specimens. It is used under Emergency [...] indicated. Lab Interpretation Normal (test code = 22092-9) [facility] CenterCT ABDOMEN PELVIS W [id number] 17:24:55Thickening of the gastric antrum and duodenal [...] nodularity of the left adrenal gland.RL: 8722 UnThe [facility] CampusUrinalysis2021-08-03 17:03:40 Test Item Value Reference Range Interpretation Comments APPEARANCE (test code = Hazy Clear A 4307781219) COLOR (test code = Mabel Yellow A 6136657744) PH (test code = 4.8-8.0 2673384378) SP GRAVITY (test code = 1.003-1.030 H 5921844610) GLU U QUAL (test code = Normal Normal 4277685234) BLOOD (test code = Negative Negative 5712507851) KETONES (test code = 5 mg/dL Negative A 8589308489) PROTEIN (test code = 30 mg/dL Negative A 2887-8) UROBILIN (test code = 4.0 mg/dL Normal A 8649521658) BILIRUBIN (test code = 4 mg/dL Negative A 3266045985) NITRITE (test code = Negative Negative 6072377283) LEUK GRUPO (test code = Negative Negative 8046565757) RBC/HPF (test code = See_Comment H [Autom ated message] 9940479533) The system Mixbook generated this result transmit sherice reference range : 0 - 3 HPF. The refe rence range was not u sed to interpret th is result as normal/abnormal . WBC/HPF (test code = See_Comment H [Autom ated message] 8946649136) The system Mixbook generated this result transmit sherice reference range : 0 - 5 HPF. The refe rence range was not u sed to interpret th is result as normal/abnormal . BACTERIA (test code = Few Negative A 7609634808) MUCOUS (test code = Moderate Negative LPF A 0227187404) SQ EPITH (test code = HPF 1221907258) CA OXALATE (test code = See_Comment H [Au tomated message] 2035478199) The system Mixbook generated this result transmit sherice reference range : <=1 HPF. The refere nce range was not u sed to interpret th is result as normal/abnormal . Ictotest (test code = Negative 6432541236) Lab Interpretation (test Abnormal code = 81212-1) [facility] CenterComplete Metabolic [id number] 16:34:55 Test Item Value Reference Range Interpretation Comments NA (test code = 139 mmol/L 135-145 8963838326) K (test code = 4.3 mmol/L 3.5-5.0 4030571300) CL (test code = 105 mmol/L 98-108 8777748574) CO2 TOTAL (test code 26 mmol/L 23-31 = 8643632287) AGAP (test code = 2-16 0853604934) BUN (test code = 11 mg/dL 7-23 7651541484) GLUCOSE (test code = 95 mg/dL 70-110 9992789622) CREATININE (test code 0.70 mg/dL 0.50-1.04 = 5248069875) TOTAL BILI (test code 0.6 mg/dL 0.1-1.1 = 4410111575) CALCIUM (test code = 8.9 mg/dL 8.6-10.6 4568959419) T PROTEIN (test code 7.7 g/dL 6.3-8.2 = 1847119142) ALBUMIN (test code = 4.1 g/dL 3.5-5.0 3449175546) ALK PHOS (test code = 79 U/L 34-122 1073196307) ALTv (test code = 10 U/L 5-35 1742-6) AST(SGOT) (test code 22 U/L 13-40 = 1412009613) eGFR (test code = mL/min/1.73m2 6053924523) LYNDSAY (test code = LYNDSAY) Association of [...] or urine or abnormalities in imaging tests). [facility] CenterLipase, [id number] 16:34:14 Test Item Value Reference Range Interpretation Comments LIPASE (test code = 0318544322) 45 U/L 0-220 Lab Interpretation (test code = Normal 16633-8) [facility] CenterCB with [id number] 16:21:12 Test Item Value Reference Range Interpretation Comments WBC (test code = See_Comment [Automated 4054-2) message] The sy stem which generated this result transmitted reference range : 4.30 - 11.10 10*3/?L. The reference range was not used to interpret this result as normal/abnormal . RBC (test code = See_Comment [Automated 929-9) message] The sy stem which generated this [...] (test code = 54.4 fL 39.0-49.9 H 39062-7) RDW-CV (test code = 18.3 % 12.0-15.5 H 788-0) PLT (test code = See_Comment H [Automated 777-3) message] The sy stem which generated this result transmitted reference range : 166 - 358 10*3/ ?L. The reference r zoe was not used to interpret this result as normal/abnormal . MPV (test code = 8.5 fL 9.5-12.9 L 87558-8) NRBC/100 WBC (test See_Comment [Automat ed code = 7556153093) message] The system which generated this result transmitted reference range : 0.0 - 10.0 /100 WBCs. The refer ence range was not u sed to interpret th is result as normal/abnormal . NRBC x10^3 (test code <0.01 See_Comment [Auto mated = 9616022249) message] The s ystem which generated this result transmitted reference range : 10*3/?L. The reference range was not used to interpret this result as normal/abnormal . GRAN MAT (NEUT) % 78.3 % (test code = 770-8) IMM GRAN % (test code 0.40 % = 8559814291) LYMPH % (test code = 15.4 % 736-9) MONO % (test code = 4.8 % 5905-5) EOS % (test code = 0.1 % 713-8) BASO % (test code = 1.0 % 706-2) GRAN MAT x10^3(ANC) 7.15 10*3/uL 1.88-7.09 H (test code = 6443101922) IMM GRAN x10^3 (test 0.04 10*3/uL 0.00-0.06 code = 1859997296) LYMPH x10^3 (test code 1.41 10*3/uL 1.32-3.29 = 731-0) MONO x10^3 (test code 0.44 10*3/uL 0.33-0.92 = 742-7) EOS x10^3 (test code = <0.03 0.03-0.39 L 711-2) BASO x10^3 (test code 0.09 10*3/uL 0.01-0.07 H = 704-7) Lab Interpretation Abnormal (test code = 25056-4) [facility]"
[2022-06-25] MEDS ORDERED: MORPHINE 4 MG/ML SYR ONE (16:34)
[2022-06-25] MEDS ORDERED: ONDANSETRON 4 MG/2 ML VIAL ONE (16:34)
--- NOTE | 2022-06-25 17:15 | RAD REPORT ---
EXAM DESCRIPTION: RAD - Forearm Left - 06/25/2022 4:58 pm CLINICAL HISTORY: PAIN COMPARISON: None. FINDINGS: No fracture is identified. There is no dislocation or periosteal reaction noted. No pathol ogic bone changes seen. No foreign body or other soft tissue abnormality. IMPRESSION: Negative left forearm examination.
--- NOTE | 2022-06-25 17:34 | RAD REPORT ---
EXAM DESCRIPTION: CT - Head C Spine Cap Wo Con - 06/25/2022 5:14 pm CLINICAL HISTORY: fall COMPARISON: Head C Spine Cap Wo Con dated 05/04/2022 TECHNIQUE: Axial [address] head images were obtained. Axial [address] cervical spine images were obtain ed with sagittal and coronal reconstruction images reviewed. Axial 5 mm images of the chest, abdomen and pelvis were obtained. Oral contrast: None All CT scans are performed using dose optimization technique as appropriate and may include automated exposure control or mA/KV adjustment according to patient size. FINDINGS: No intracranial hemorrhage, mass or edema. No midline shift or abnormal fluid collection. Mastoid air cells and paranasal sinuses are clear. No skull fracture. Cervical bodies are normal in height and alignment.C4-C7 fusion changes are present. Anterior plate a nd screw fixation is seen with well-healed graft material across the disc spaces. The C7-T1 disc spac e is narrowed slightly with associated endplate spurring. Facet joint degenerative changes present bu t mild.No fracture or acute bone finding.No disk space narrowing.No prevertebral soft tissue thickeni ng or paraspinal mass.Central canal detail is inherently limited on CT imaging. CT chest shows no pneumothorax, pulmonary contusion or pleural fluid collection. Calcified granuloma seen in the upper left lung field. There is a 5 mm subpleural nodule seen posterolateral left lower l obe near the fissure. In a patient that is considered low risk there is no follow-up recommendation. Patient and may be high risk can be re-evaluated with CT imaging in 12 months. No mediastinal hematom a and the aorta and pulmonary arteries are unremarkable. No chest will mass or abnormal axillary find ing. No displaced rib fracture or other significant bony finding. No cardiomegaly or acute lung pare nchymal process. CT abdomen and pelvis show no injury to solid abdominal viscera. Gallbladder is absent. Biliary tree within normal limits. A 2.9 centimeter left adrenal mass is present. A -16 Hounsfield unit attenuatio n was obtained. Findings are typical for incidental adrenal adenoma. Uterus and ovaries show no suspicious findings. No bowel injury or significant finding. No free air, free fluid or abnormal stranding. No hernia, mass or bulky lymphadenopathy. No urinary bladder abnor mality. No acute compression fracture in the spine. Patient has advanced degenerative change at L3-4 and L4-5 disc levels. IMPRESSION: No significant CT Head finding. Cervical spine C4-C7 fusion changes with no acute finding identifiable. No acute traumatic injury to the chest. Small incidental subpleural nodule can be re-evaluated in [address] imaging if the patient is considered high risk. Otherwise, no follow-up is recommended . No acute CT abdomen or pelvis finding.
[2022-06-25] MEDS ORDERED: DIAZEPAM 10 MG/2 ML INJ SYRINGE ONE (17:52)
[2022-06-25] MEDS ORDERED: KETOROLAC 30 MG/ML INJ ONE (18:00)
--- NOTE | 2022-06-25 18:16 | ER ---
Nurse's Notes [facility] Name: Heather Coon Age: 52 yrs Sex: Female : 1970 Arrival Date: 06/25/2022 Time: 16:23 Bed 24 Private MD: Diagnosis: Low back pain Presentation: 06/25 16:25 Chief complaint: EMS states: "patient was getting up from chair and fell. no lose of em6 conscious. she does state that she hit her head. she's not on any blood thinners. she states pain in her left arm. she does mention she has chronic back pain". Coronavirus screen: Client denies travel out of the [place] in the last 14 days. Ebola Screen: Patient negative for fever greater than or equal to 101.5 degrees Fahrenheit, and additional compatible Ebola Virus Disease symptoms. Initial Sepsis Screen: Does the patient meet any 2 criteria? No. Patient's initial sepsis screen is negative. Does the patient have a suspected source of infection? No. Patient's initial sepsis screen is negative. Risk Assessment: Do you want to hurt yourself or someone else? Patient reports no desire to harm self or others. Onset of symptoms was June 25, 2022. 16:25 Acuity: ANDER 3 em6 16:25 Method Of Arrival: EMS: [facility] em6 Historical: - Allergies: 16:28 fluoxetine; em6 16:28 Green Tea; em6 - Home Meds: 16:28 Keppra 2500 mg Oral [Active]; em6 - PMHx: 16:28 Anxiety; Bipolar disorder; Cancer-Cervical; Chronic pain; Depression; Diverticulitis; em6 Herniated Back Disc; Hypertension; intestinal mass; Myocardial infarction; pt reports hx of seizures; Spastic Muscles; stroke; - PSHx: 16:28 cervical fusion; Cholecystectomy; foot; Tonsillectomy; em6 - Immunization history:: Adult Immunizations up to date. - Social history:: Smoking status: Patient reports the use of cigarette tobacco products. Screenin:25 Abuse screen: Denies threats or abuse. Nutritional screening: No deficits noted. em6 Tuberculosis screening: No symptoms or risk factors identified. Fall Risk Fall in past 12 months (25 points). No secondary diagnosis (0 pts). No IV (0 pts). Ambulatory Aid- Crutches/Cane/Walker (15 pts). Gait- Weak (10 pts.). Mental Status- Oriented to own ability (0 pts). Total Costello Fall Scale indicates High Risk Score (45 or more points). Fall prevention measures have been instituted. Side Rails Up X 2 Placed Close to Nursing Station Frequent Obs/Assessments Occuring As available patient and family educated on Fall Prevention Program and Strategies. Assessment: 16:24 General: Appears uncomfortable, Behavior is cooperative. Pain: Complains of pain in em6 back and left arm Pain does not radiate. Pain currently is 9 out of 10 on a pain scale. Quality of pain is described as sharp, Pain began 1 hour ago. Neuro: Level of Consciousness is awake, alert, obeys commands, Oriented to person, place, time, situation. Cardiovascular: Patient's skin is warm and dry. Pulses are all present. Respiratory: Airway is patent Respiratory effort is even, unlabored, Respiratory pattern is regular, symmetrical. GI: Abdomen is non-distended, Bowel sounds present X 4 quads. Abd is soft and non tender X 4 quads. : No signs and/or symptoms were reported regarding the genitourinary system. EENT: No signs and/or symptoms were reported regarding the EENT system. Derm: No signs and/or symptoms reported regarding the dermatologic system. Musculoskeletal: Circulation, motion, and sensation intact. 17:20 Reassessment: Patient appears in no apparent distress at this time. No changes from em6 previously documented assessment. Patient and/or family updated on plan of care and expected duration. Pain level reassessed. Patient is alert, oriented x 3, equal unlabored respirations, skin warm/dry/pink. 18:20 Reassessment: Patient appears in no apparent distress at this time. No changes from em6 previously documented assessment. Patient and/or family updated on plan of care and expected duration. Pain level reassessed. Patient is alert, oriented x 3, equal unlabored respirations, skin warm/dry/pink. Vital Signs: 16:25 BP 157 / 107; Pulse 111; Resp 22; Temp 98.7; Pulse Ox 100% on R/A; Weight 90.72 kg; em6 Height 5 ft. 3 in. (160.02 cm); Pain 9/10; 16:45 BP 149 / 91; Pulse 108; Resp 20; Pulse Ox 97% on R/A; em6 18:15 BP 152 / 98; Pulse 105; Resp 18; Pulse Ox 98% on R/A; em6 16:25 Body Mass Index 35.43 (90.72 kg, 160.02 cm) em6 ED Course: 16:23 Patient arrived in ED. sb4 16:24 Nereyda Orellana, RN is Primary Nurse. em6 16:24 [facility] Mahmood [facility] sb4 16:24 Jones Parham MD is Attending Physician. sb4 16:28 Triage completed. em6 16:28 Arm band placed on. em6 16:29 Bed in low position. Call light in reach. Side rails up X 1. Pulse ox on. NIBP on. Warm em6 blanket given. 16:30 Inserted saline lock: 20 gauge in left antecubital area, using aseptic technique. em6 17:00 XRAY Forearm LEFT In Process Unspecified. EDMS 17:16 Head C Spine Cap Wo Con CT In Process Unspecified. EDMS 18:49 No provider procedures requiring assistance completed. IV discontinued, intact, em6 bleeding controlled, No redness/swelling at site. Pressure dressing applied. Administered Medications: 16:35 Drug: morphine 4 mg Route: IVP; Infused Over: 4 mins; Site: left antecubital; em6 17:33 Follow up: Response: No adverse reaction; RASS: Alert and Calm (0) em6 16:35 Drug: Zofran (Ondansetron) 4 mg Route: IVP; Site: left antecubital; em6 17:33 Follow up: Response: No adverse reaction em6 17:55 Drug: Valium (diazepam) 5 mg Route: IVP; Site: left antecubital; em6 18:30 Follow up: Response: No adverse reaction; RASS: Alert and Calm (0) em6 18:04 Drug: Ketorolac 30 mg Route: IVP; Site: left antecubital; em6 18:30 Follow up: Response: No adverse reaction em6 Medication: 18:49 VIS not applicable for this client. em6 Outcome: 18:16 Discharge ordered by . sb4 18:49 Discharged to home via wheelchair. em6 18:49 Condition: stable 18:49 Discharge instructions given to patient, Instructed on discharge instructions, follow up and referral plans. medication usage, Demonstrated understanding of instructions, follow-up care, medications, Prescriptions given X 2. 18:49 Patient left the ED. em6 Signatures: Dispatcher [employer] Nereyda Rivers RN RN em6 Mariola Mahmood, PAJimenez PAJimenez sb4
--- NOTE | 2022-06-25 18:17 | EDPHYS ---
Physician Documentation [facility] Name: Heather Coon Age: 52 yrs Sex: Female : 1970 Arrival Date: 06/25/2022 Time: 16:23 Bed 24 Private MD: ED Physician Jones Parham HPI: 06/25 16:27 This 52 yrs old Female presents to ER via Unassigned with complaints of fall, back pain.sb4 16:27 Details of fall: The patient fell from an upright position, while walking. Onset: The sb4 symptoms/episode began/occurred just prior to arrival. Associated injuries: The patient sustained injury to the low back, pain. Severity of symptoms: in the emergency department the symptoms are unchanged. The patient has experienced similar episodes in the past, chronically. The patient has been recently seen by a physician: 1 week(s) ago. Patient was ambulating with a walker when she tripped and fell. She reports that she landed on her left arm and possibly her head. No LOC or blood thinners. She has a history of multiple vertebrae fractures and is supposed to have an operation at [facility]. States this back pain is the same.. Historical: - Allergies: 16:28 fluoxetine; em6 16:28 Green Tea; em6 - Home Meds: 16:28 Keppra 2500 mg Oral [Active]; em6 - PMHx: 16:28 Anxiety; Bipolar disorder; Cancer-Cervical; Chronic pain; Depression; Diverticulitis; em6 Herniated Back Disc; Hypertension; intestinal mass; Myocardial infarction; pt reports hx of seizures; Spastic Muscles; stroke; - PSHx: 16:28 cervical fusion; Cholecystectomy; foot; Tonsillectomy; em6 - Immunization history:: Adult Immunizations up to date. - Social history:: Smoking status: Patient reports the use of cigarette tobacco products. ROS: 18:14 Constitutional: Negative for fever, chills, and weight loss, Eyes: Negative for injury, sb4 pain, redness, and discharge, ENT: Negative for injury, pain, and discharge, Cardiovascular: Negative for chest pain, palpitations, and edema, Respiratory: Negative for shortness of breath, cough, wheezing, and pleuritic chest pain, Abdomen/GI: Negative for abdominal pain, nausea, vomiting, diarrhea, and constipation, Skin: Negative for injury, rash, and discoloration. 18:14 Back: Positive for decreased range of motion, pain at rest, pain with movement, radiated pain. 18:14 All other systems are negative. Exam: 18:14 Constitutional: This is a well developed, well nourished patient who is awake, alert, sb4 and in no acute distress. Head/Face: Normocephalic, atraumatic. Eyes: Pupils equal round and reactive to light, extra-ocular motions intact. Periorbital areas with no swelling, redness, or edema. ENT: Mucous membranes moist. Cardiovascular: Regular rate and rhythm with a normal S1 and S2. Respiratory: Lungs have equal breath sounds bilaterally, clear to auscultation and percussion. No rales, rhonchi or wheezes noted. No increased work of breathing, no retractions or nasal flaring. Abdomen/GI: Soft, non-tender, no distension. Skin: Warm, dry with normal turgor. Normal color with no rashes, no lesions, and no evidence of cellulitis. 18:14 Back: pain, that is moderate, ROM is painful, normal spinal alignment noted, CVA tenderness, is absent, Straight leg raises: pain bilaterally. 18:14 Musculoskeletal/extremity: Extremities: Vital Signs: 16:25 BP 157 / 107; Pulse 111; Resp 22; Temp 98.7; Pulse Ox 100% on R/A; Weight 90.72 kg; em6 Height 5 ft. 3 in. (160.02 cm); Pain 9/10; 16:45 BP 149 / 91; Pulse 108; Resp 20; Pulse Ox 97% on R/A; em6 18:15 BP 152 / 98; Pulse 105; Resp 18; Pulse Ox 98% on R/A; em6 16:25 Body Mass Index 35.43 (90.72 kg, 160.02 cm) em6 MDM: 16:24 Patient medically screened. sb4 18:14 Data reviewed: vital signs, nurses notes, radiologic studies, and as a result, I will sb4 discharge patient. 06/25 16:26 Order name: Head C Spine Cap Wo Con CT; Complete Time: 17:35 sb4 06/25 16:26 Order name: XRAY Forearm LEFT; Complete Time: 17:23 sb4 Administered Medications: 16:35 Drug: morphine 4 mg Route: IVP; Infused Over: 4 mins; Site: left antecubital; em6 17:33 Follow up: Response: No adverse reaction; RASS: Alert and Calm (0) em6 16:35 Drug: Zofran (Ondansetron) 4 mg Route: IVP; Site: left antecubital; em6 17:33 Follow up: Response: No adverse reaction em6 17:55 Drug: Valium (diazepam) 5 mg Route: IVP; Site: left antecubital; em6 18:30 Follow up: Response: No adverse reaction; RASS: Alert and Calm (0) em6 18:04 Drug: Ketorolac 30 mg Route: IVP; Site: left antecubital; em6 18:30 Follow up: Response: No adverse reaction em6 Disposition: 18:51 Co-signature as Attending Physician, Jones Parham MD. rn Disposition Summary: 06/25/22 18:16 Discharge Ordered Location: Home sb4 Problem: an acute exacerbation sb4 Symptoms: have improved sb4 Condition: Stable sb4 Diagnosis - Low back pain sb4 Followup: sb4 - With: Private Physician - When: As needed - Reason: Recheck today's complaints, Continuance of care, Re-evaluation by your physician Discharge Instructions: - Discharge Summary Sheet sb4 - Chronic Back Pain sb4 Forms: - Medication Reconciliation Form sb4 - Thank You Letter sb4 - Antibiotic Education sb4 - Prescription Opioid Use sb4 Prescriptions: - ketorolac 10 mg Oral tablet - take 1 tablet by ORAL route every 4-6 hours As needed not to exceed 40 mg in sb4 24hrs; 15 tablet; Refills: 0, Product Selection Permitted - Cyclobenzaprine 5 mg Oral Tablet - take 1 tablet by ORAL route 3 times per day As needed; 15 tablet; Refills: 0, sb4 Product Selection Permitted Signatures: Dispatcher [employer] Jones Larose MD MD rn Martinez, Erika, RN RN em6 Mariola Mahmood PA-C PA-C sb4
[2022-06-25 23:13] VITALS: TEMP 98.7
[2022-06-25 23:22] VITALS: BP 152/98; O2SAT 98
== END 2022-06-25 18:49 | disposition home or self-care (01) ==
LOC: ER 16:19
DX: M54.50 Low back pain, unspecified (principal); Z72.0 Tobacco use
CPT/HCPCS: 70450; 71250; 72125; J2405; J3360

== ENCOUNTER 2022-08-08 13:10 | Emergency (ER) | payer SELFPAY ==
--- OUTSIDE RECORDS SUMMARY | 2022-08-08 13:19 | XMS REPORT | Continuity of Care Document ---
:1970 Author Organization [facility] t Address [address] [place] [address] Care Team Providers Name Role Phone KarencampbellAneta Bolden Primary Care Physician [phone] Halima Brock MD Attending Clinician Jen Yepez MD Attending Clinician Parrish Diane MD Attending Clinician PARRISH DIANE Attending Clinician Unavailable HALIMA BROCK Attending Clinician Unavailable LORENZA HER Attending Clinician Unavailable Sav Rondon MD Attending Clinician Lorenza Her MD Attending Clinician Maria Teresa Nicole LVN Attending Clinician CHANTEL MATTHEWS Attending Clinician Unavailable CHANTEL MATTHEWS Attending Clinician Unavailable Brandyn Mcfarlane MD Attending Clinician SELINA MARTINES Attending Clinician Unavailable Sapna Vargas DO Attending Clinician Glory Esteves MD Attending Clinician [phone] Selina Martines MD Attending Clinician Vaccine, Chung Pierson Attending Clinician Unavailable Jose Frederick MD Attending Clinician JOSE FREDERICK Attending Clinician Unavailable NICHELLE ALLISON F Attending Clinician Unavailable Ibtroy LEASING MANAGER, Nichelle F Attending Clinician Doctor Unassigned, [place] Attending Clinician Unavailable Brandy CAMPOS, Miky Attending Clinician Unavailable Fabrice Gordillo Attending Clinician Deo BRONSONPLydia Attending Clinician Unknown, Attending Attending Clinician Unavailable UNKNOWN, ATTENDING Attending Clinician Unavailable Anali Rascon Attending Clinician Yehuda Arcos MD Attending Clinician JEN YEPEZ Admitting Clinician Unavailable LORENZA HER Admitting Clinician Unavailable Lorenza Her MD Admitting Clinician BRANDYN MCFARLANE Admitting Clinician Unavailable Brandyn Mcfarlane MD Admitting Clinician GLORY ESTEVES Admitting Clinician Unavailable NICHELLE ALLISON Admitting Clinician Unavailable Payers Payer Name Policy Type Policy Number Effective Date Expiration Date S ource MEDICAID SSI PENDING 2022 PENDING 00:00:00 Problems Condition Condition Condition Status Onset Resolution Last Treating Co mments Source Name Details Category Date Date Treatment Clinician Date Seizure Seiz[facility] Disease [facility] 00 Center Cardiomyop Cardiomyop Disease Active U nivers athy athy 08-01 ity of 00:00: [place] 00 Medical Branch NSVT NSVT Disease Active Univers (nonsustai (nonsustai 08-01 it y of keisha keisha 00:00: [place] ventricula ventricula 00 Me dical r r Branch tachycardi tachycardi a) a) Chest Chest Disease Active Univers pain, pain, 1-12 ity of unspecifie unspecif[place] d type d type 00 Medical Branch Elevated Elevated Disease Active Unive rs brain brain 1-12 ity of natriureti natriureti [place] c peptide c peptide 00 Medi kwame (BNP) (BNP) Branch level level Coronary Coronary Disease Active Unive rs artery artery 1-12 ity of disease disease 00:00: [place] involving involving 00 Medi kwame huslia huslia Branch coronary coronary artery of artery of huslia huslia heart heart without without angina angina pectoris pectoris Snores Snores Disease Active Univers 1-12 ity of 00:00: [place] [facility] Cigarette Cigarette Disease Active Uni vers smoker smoker 1-12 ity of 00:00: [place] [facility] Primary Primary Disease Active Univers hypertensi hypertensi 1-12 it y of on on 00:00: [place] [facility] Other Other Disease Active Univers hyperlipid hyperlipid 1-12 it y of emia emia 00:00: [place] [facility] Chronic Chronic Disease Active 2021-07 Univers bilateral [...] symptoms 9-25 it y of 00:00: [place] [facility] Bipolar Bipolar [...] anxiety 09-27 ity of disorder disorder 00:00: [place] [facility] Agoraphobi Agoraphobi Disease Active U nivers a a 3 ity of 00:00: [place] [facility] Bipolar Bipolar Disease Active Univers disorder, disorder, 09-27 ity of in partial in partial [place] remission, remission, 00 Me dical most most Branch recent recent episode episode manic manic 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 09-27 it y of disorder disorder 00:00: [place] [facility] Breast Breast Disease Active Univers mass, left mass, left 3 it y of 00:00: [place] [facility] Anxiety Anxiety Disease Active Univers 3 ity of 00:00: [place] [facility] Lower back Lower back Disease Active U nivers pain pain 3- ity of 00:00: [place] [facility] High blood High blood Disease Active U nivers pressure pressure 3 ity of 00:00: [place] [facility] COPD COPD Disease Active Univers (chronic (chronic 3 ity of obstructiv obstructiv 00:00: [place] e e 00 Medical pulmonary pulmonary Bran ch disease) disease) Obesity Obesity Disease Active Univers 3- ity of 00:00: [place] 00 Medical Branch Allergies, Adverse Reactions, Alerts Allergy Allergy Status Severity Reaction(s) Onset Inactive Treating Comm ents Source Name Type Date Date Clinician Amaury Mansfieldi Active [facility] adverse 00:00: Medical reaction 00 Center s Fluoxeti Propensi Active Rash [facility] adverse 00:00: Medical reaction 00 Center s FLUOXETI Allergy Active Med Rash [facility]: Medical 00 Center GREEN Allergy Active [facility] TEA 08-02 00:00: 00 Fluoxeti Propensi Active Unknown - Uni vers ne ty to See comments 03-25 ity of adverse 00:00: [place] reaction 00 Medical s Branch FLUOXETI DRUG Active Unknown-Cmnt Un lois NE INGREDI 03-25 ity of 00:00: [place] [facility] DICLOFEN DRUG Active HYPERTENSION Un [...] 00:00: [place] reaction 00 Medical s Branch Family History Family Member Diagnosis Comments Start Date Stop Date Source Natural mother Alcohol abuse [facility] Natural mother Cancer [facility] Natural mother Diabetes [facility] Natural mother Heart disease [facility] Natural mother Hyperlipidemia [facility] Natural mother Kidney disease [facility] Natural mother Stroke [facility] Paternal uncle Diabetes [facility] Social History Social Habit Start Date Stop Date Quantity Comments Source History of tobacco Passive smoker Un iversity of use [place] [facility] History SDOH Social Unive rsity of [facility] Branch History SDOH Social Unive rsity of Connections Anabaptism [place] [facility] History SDOH Social Unive rsity of Connections [place] [facility] Membership Branch History SDOH Social Unive rsity of Connections [place] [facility] Meetings Branch History SDOH [facility] Alcohol Frequency Medical Center History SDOH [facility] Alcohol Std Drinks Medica l Center History SDOH [facility] Alcohol Binge Medical [address] Exposure to 2022-07-23 2022-08-[address] [facility] SARS-CoV-2 (event) 00:00:00 18:57:00 Medica l Center Alcohol intake 2022-08-02 2022-08-02 [facility] Medical Center (finding) History SDOH 2022-08-02 2022-08-[address] [facility] Alcohol Comment 00:00:00 00:00:00 of beer Medical enter Cigarettes smoked 2022-08-02 2022-08-[address] [facility] current (pack per 00:00:00 00:00:00 Medical Center day) - Reported Tobacco use and 2022-08-02 2022-08-[address] [facility] [address] [facility] k[facility] exposure 00:00:00 00:00:00 Medical Center History SDOH Social 2022-08-01 2022-08-01 5 Unive rsity of Connections Phone 00:00:00 00:00:00 [place] M edical Branch History SDOH Social 2022-08-01 2022-08-01 5 Unive rsity of Connections Living 00:00:00 00:00:00 [place] [facility] History SDOH 2022-08-01 2022-08-01 0 University o f Physical Activity 00:00:00 00:00:00 [place] M edical DPW Branch History SDOH 2022-08-01 2022-08-01 0 University o f Physical Activity 00:00:00 00:00:00 [place] M edical MPS Branch History SDOH 2022-08-01 2022-08-01 3 University o f Financial 00:00:00 00:00:00 [place] [facility] History SDOH Food 2022-08-01 2022-08-01 1 Univers ity of Worry 00:00:00 00:00:00 [place] [facility] History SDOH Food 2022-08-01 2022-08-01 1 Univers ity of Scarcity 00:00:00 00:00:00 [place] [facility] History SDOH 2022-08-01 2022-08-01 2 University o f Transport Med 00:00:00 00:00:00 [place] Medic al Branch History SDOH 2022-08-01 2022-08-01 2 [place] o f Transport Non-Med 00:00:00 00:00:00 [place] M edical Branch Cigarette 2022-07-31 2022-07-31 University of pack-years 00:00:00 00:00:00 [facility] Education 2022-07-31 2022-07-31 14 University of 00:00:00 00:00:00 [facility] Sex Ass[birth year] At [birth year] [facility] 00:00:00 00:00:00 [facility] Center Smoking Status Start Date Stop Date Source Current every day smoker 2022-08-02 00:00:00 [facility] Medications Ordered Filled Start Stop Current Ordering Indication Dosage Frequency Signature Comments Components Source Medication Medication Date Date Medication? Clinician (SIG) Name Name lisinopriL Yes 10mg 10 mg, Unive rs (PRINIVIL,Z 1-14 Oral, ity of ESTRIL) 15:00: DAILY, [place] tablet 10 00 First dose Medi kwame mg on Sat Branch 08/02/22 at 0900, Until Discontinu ed, Routine predniSONE 2022- Yes 40mg 40 mg, Univ ers (DELTASONE) 1-14 19 Oral, ity of tablet 40 15:00: 14:59 DAILY, 5 [place] as mg 00 :00 doses, Medical First dose Branch on 08/02/22 at 0900, Last dose on Thu08/06/22 at 0900, Routine morpHINE (2 Yes 2mg 2 mg, Slow Univers mg/mL) 1-14 IV Push, ity of injection 2 03:29: Q4HPRN, [place] mg 15 Starting Medical on Thu Branch 08/01/22 at 2129, Until Discontinu ed, Routine, Pain (scale 7-10) levETIRAcet Yes 1000mg 1,000 mg, Univers am (KEPPRA) 1-14 IV ity of in NACL 00:00: [place] (ISO-OS) 00 Q12H, Medical 1,000 First dose Branch mg/100 mL on Fri RTU 08/01/22 at 1800, Until Discontinu ed, Administer over 15 Minutes, 100 mL MULTIVITAMI 2022-0 Yes 1{tbl} Take 1 Tab Univers N ORAL 1-13 by mouth ity of 23:49: daily. [address] Branch omega-3 2022-0 Yes 1g Take 1 g Univer s fatty 1-13 by mouth ity of acids-vitam 23:49: [place]. [place] in E (FISH 34 Medical OIL) 1,000 Branch mg capsule loratadine 0 Yes Take by Univ ers (CLARITIN 1-13 mouth ity of LIQUI-GEL) 23:49: daily. [place] 10 mg 34 Medical capsule Branch ondansetron 0 Yes 4mg Take 4 mg U nivers 4 mg tablet -13 by mouth ity of 23:49: every 8 [place] [address] (eight) Medical hours as Branch needed. pantoprazol 0 Yes 40mg Take 40 mg Univers e 40 mg EC -13 by mouth ity o f tablet 23:49: daily. [address] Branch benzonatate 2022-0 Yes 100mg 100 mg, Un lois (TESSALON 1-13 Oral, Q8H, ity of PERLES) 20:00: First dose [place] capsule 100 00 on Fri Medica l mg 08/01/22 at Branch 1400, Until Discontinu ed, Routine ipratropium 3-0 Yes 3mL 3 mL, Unive rs -albuteroL 1-13 Inhalation ity of (DUONEB) 18:00: , QIDJose Miguel 0.5 mg-3 00 First dose Medic al mg(2.5 mg on Fri Branch base)/3 mL 08/01/22 at nebulizer 1200, solution 3 Until mL Discontinu ed, Routine ipratropium 3-0 Yes 3mL 3 mL, Unive rs -albuteroL 1-13 Inhalation ity of (DUONEB) 17:07: , QIDPRN, [place] 0.5 mg-3 07 Starting Medical mg(2.5 mg on Fri Branch base)/3 mL 08/01/22 at nebulizer 1107, solution 3 Until mL Discontinu ed, MICHAEL, Wheezing, Shortness of Breath sulfur 2023-0 202- No [id number] 5mL 5 mL, Unive rs hexafluorid 08-01 Intravenou i ty of e microsphr 17:00: 17:00 s, ONCE, 1 [place] (LUMASON) 00 :00 dose, On Medica l injection 5 Fri Branch mL 08/01/22 at 1100, Routine
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 : [place] pantoprazol Yes 40mg 40 mg, Univ ers e 08-01 Oral, ity of (PROTONIX) 15:00: DAILY, [place] EC tablet 00 First dose Medi kwame 40 mg on Thu Branch 08/01/22 at 0900, Until Discontinu ed, Routine aspirin Yes 81mg 81 mg, Univers chewable 08-01 Oral, ity of tablet 81 15:00: DAILY, [place] mg 00 First dose Medical on Thu Branch 08/01/22 at 0900, Until Discontinu ed, Routine amLODIPine Yes 10mg 10 mg, Unive rs (NORVASC) 08-01 Oral, ity of tablet 10 15:00: DAILY, [place] mg 00 First dose Medical on Fri Branch 08/01/22 at 0900, Until Discontinu ed, Routine levETIRAcet 2022- No 500mg 500 mg, U nivers am (KEPPRA) 08-01 Oral, BID, i ty of tablet 500 14:00: 23:56 First dose [place] mg 00 :35 on Fri Medical 08/01/22 at Branch 0800, Until Discontinu ed, Routine carvediloL 2022- No 6.25mg 6.25 mg, Univers (COREG) 08-01 Oral, BID ity of tablet 6.25 14:00: 17:29 MEALS, [place] mg 00 :13 First dose Medical on Fri Branch 08/01/22 at 0800, Until Discontinu ed, Routine levETIRAcet 2022- No 1000mg 1,000 mg, Univers am (KEPPRA) 08-01 IV ity of in NACL 06:45: 06:32 Piggyback, [place] (ISO-OS) 00 :00 ONCE, 1 Medical 1,000 dose, On Branch mg/100 mL Fri RTU 08/01/22 at 0045, Administer over 15 Minutes, 100 mL LORazepam 2022-0 Yes 1mg 1 mg, Slow Un lois (ATIVAN) 08-01 IV Push, ity of injection 1 05:52: Q4HPRN, [place] mg 54 Starting Medical on [facility] Branch 07/31/22 at 2352, Until Discontinu ed, Routine, Seizures, Agitation, Anxiety, ETOH / Cocaine Withdrawl foLIC acid 2022-0 Yes 1mg 1 mg, Univer s (FOLATE) 13 Oral, ity of tablet 1 mg 05:45: DAILY, [place] 00 First dose Medical on [facility] Branch 07/31/22 at 2345, Until Discontinu ed, Routine thiamine 2022-0 Yes 100mg 100 mg, Unive rs (VITAMIN 1-13 Oral, ity of B1) tablet 05:45: DAILY, [place] 100 mg 00 First dose Medical on [facility] Branch 07/31/22 at 2345, Until Discontinu ed, Routine LORazepam 2022-0 2022- No .5mg 0.5 mg, Univ ers (ATIVAN) 08-01-13 Slow IV ity of injection 05:30: 05:29 Push, [place] 0.5 mg 00 :00 ONCE, 1 Medical dose, On Branch [facility] 07/31/22 at 2330, MICHAEL atorvastati 2022-0 Yes 40mg 40 mg, Univ ers n (LIPITOR) 13 Oral, QHS, it y of tablet 40 03:00: First dose [place] mg 00 on [facility] Medical 07/31/22 at Branch 2100, Until Discontinu ed, Routine diphenhydrA 2022-0 Yes 25mg 25 mg, Univ ers MINE -13 Oral, ity of (BENADRYL) 00:32: Q6HPRN, [place] tablet 25 02 Starting Medica l mg on [facility] Branch 07/31/22 at 1832, Until Discontinu ed, Routine, Itching enoxaparin 2022-0 Yes 40mg 40 mg, Unive rs (LOVENOX) 12 Subcutaneo ity of injection 23:00: us, DAILY, [place] 40 mg 00 First dose Medical on [facility] Branch 07/31/22 at 1700, Until Discontinu ed, Routine morpHINE (2 2022-0 202- No 2mg 2 mg, Slow Univers mg/mL) 07-31 IV Push, ity of injection 2 23:00: 22:29 ONCE, 1 [place] mg 00 :00 dose, On Medical [place] Branch 07/31/22 at 1700, Routine HYDROcodone 2022-0 Yes 1{tbl} 1 tablet, Univers -acetaminop 07-31 Oral, ity of hen (NORCO) 22:01: Q6HPRN, [place] as 10-325 mg 36 Starting Medica l tablet 1 on [facility] Branch tablet 07/31/22 at 1601, Until Discontinu ed, Routine, Pain (scale 7-10) HYDROcodone 2022-0 2022- Yes 1{tbl} 1 tablet, Univers -acetaminop 07-31 Oral, ity of hen (NORCO 22:01: 22:00 Q6HPRN, [place] as 5) 5-325 mg 34 :34 Starting Medi kwame tablet 1 on [facility] Branch tablet 07/31/22 at 1601, Until 08/02/22 at 1600, Routine, Pain (scale 4-6) acetaminoph 0 Yes 650mg 650 mg, Un lois en 07-31 Oral, ity of (TYLENOL) 22:01: Q6HPRN, [place] tablet 650 33 Starting Medic al mg on [facility] Branch 07/31/22 at 1601, Until Discontinu ed, Routine, Pain (scale 1-3) ketorolac 2022-2022- No 15mg 15 mg, Unive rs (TORADOL) 07-31 Slow IV ity of injection 21:45: 20:50 Push, [place] 15 mg 00 :00 ONCE, 1 Medical dose, On Branch Arpita 07/31/22 at 1545, Routine ondansetron 2022-0 2022- No 4mg 4 mg, Slow Univers (ZOFRAN 07-31 IV Push, ity of (PF)) 21:00: 20:47 ONCE, 1 [place] injection 4 00 :00 dose, On Medi kwame mg [place] Branch 07/31/22 at 1500, MICHAEL furosemide 2022-0 Yes 40mg 40 mg, Unive rs (LASIX) 07-31 Slow IV ity of injection 20:15: Push, [place] 40 mg 00 Q12H, Medical First dose Branch on Ar[place] 07/31/22 at 1415, Until Discontinu ed, Routine methylpredn 2022- No 125mg 125 mg, U nivers isolone sod 07-31 Slow IV ity of succ 19:30: 18:54 Push, ONCE [place] (SOLU-MEDRO 00 :00 NOW, 1 Medica l L) dose, On Branch injection [place] 125 mg 07/31/22 at 1330, MICHAEL ipratropium 2022- No 3mL 3 mL, Univ ers -albuteroL 07-31 Inhalation it y of (DUONEB) 19:30: 18:48 , ONCE, 1 [place] 0.5 mg-3 00 :00 dose, On Medical mg(2.5 mg [place] Branch base)/3 mL 07/31/22 at nebulizer 1330, MICHAEL solution 3 mL pantoprazol Yes 40mg Take 40 mg Univers e 40 mg EC 12 by mouth ity o f tablet 17:15: daily. [place] 40 Medical Branch MULTIVITAMI 0 Yes 1{tbl} Take 1 Tab Univers N ORAL -12 by mouth ity of 15:50: daily. [place] 57 Medical Branch loratadine Yes Take by [facility] ers (CLARITIN -12 mouth ity of LIQUI-GEL) 15:50: daily. [place] 10 mg 57 Medical capsule Branch ondansetron Yes 4mg Take 4 mg U nivers 4 mg tablet -12 by mouth ity of 15:50: every 8 [place] 57 (eight) Medical hours as Branch needed. omega-3 Yes 1g Take 1 g Univer s fatty -12 by mouth ity of acids-vitam 15:21: daily. [place] in E (FISH 27 Medical OIL) 1,000 Branch mg capsule TAKE ONE No (1) 1-09 TABLET(S) 00:00: BY MOUTH 00 THREE TIMES A DAY NEEDED. Methylpredn 2021-07- Yes [id number] 4mg Take 1 Univers isolone 4 0-22 10-24 tablet ity of mg tablet 00:00: 04:59 through [place] 00 :00 enteral Medical tube in Branch the morning for 1 dose. Methylpredn 2021-07- No [id number] 4mg Take 1 Univers isolone 4 0-21 10-23 tablet ity of mg tablet 00:00: 04:59 through [place] 00 :00 enteral Medical tube every Branch 12 (twelve) hours for 2 doses. MULTIVITAMI 2021-07 Yes 1{tbl} Take 1 Tab Univers N ORAL 0-20 by mouth ity of 14:44: daily. [place] [address] Medical Branch omega-3 2021-07 Yes 1g Take 1 g Univer s fatty 0-20 by mouth ity of acids-vitam 14:44: [facility] 48 Medical OIL) 1,000 Branch mg capsule loratadine 2021-[address] [facility] ers (CLARITIN 0-20 mouth ity of LIQUI-GEL) 14:44: daily. [place] 10 mg 48 Medical capsule Branch ondansetron 2021-07 Yes 4mg Take 4 mg U nivers (ZOFRAN) 4 0-20 by mouth ity o f mg tablet 14:44: every 8 [place] 48 (eight) Medical hours as Branch needed. pantoprazol 2021-07 Yes 40mg Take 40 mg Univers e 0-20 by mouth ity of (PROTONIX) 14:44: daily. [place] 40 mg EC 48 Medical tablet Branch DULoxetine 2021-07 Yes 30mg 30 mg, Unive rs (CYMBALTA) 0-20 Oral, ity of capsule 30 14:00: DAILY, [place] mg 00 First dose Medical on [facility] Branch 05/08/22 at 0900, Until Discontinu ed, Routine divalproex 2021-07 Yes 1000mg 1,000 mg, Univers (DEPAKOTE) 0-20 Oral, BID, ity of EC tablet 13:00: First dose [place] 1,000 mg 00 (after Medical last Branch modificati on) on [facility] 05/08/22 at 0800, Until Discontinu ed, Routine Methylpredn 2021-07 No 4mg 4 mg, Univ ers isolone 0-20 10-21 Oral, Q8H ity of (MEDROL) 08:50: 08:59 TAPER, 3 [place] tablet 4 mg 10 :00 doses, Medica l First dose Branch on [facility] 05/08/22 at 0400, Last dose on Arpita 05/08/22 at 2000, Routine acetaminoph 2021-07 Yes 1{tbl} 1 tablet, Univers en-codeine 0-20 Oral, ity of (TYLENOL 04:07: Q4HPRN, [place] #3) 300-30 01 Starting Medic al mg tablet 1 on [facility] tablet 05/07/22 at 2307, Until Discontinu ed, [...] Q6HPRN, [place] as 18 Starting Medical on [facility] 05/07/22 at 1902, Until Discontinu ed, Routine, Anxiety cyclobenzap 2021-07 Yes [id number] 5mg Take 1 Univers rine 5 mg 0-20 tablet by ity o f tablet 00:00: mouth in [place] [address] the [facility] morning Branch and 1 tablet at noon and 1 tablet in the evening. cyclobenzap 2021-07 Yes [id number] 5mg Take 1 Univers rine 5 mg 0-20 tablet by ity o f tablet 00:00: mouth in [address] morning Branch and 1 tablet at noon and 1 tablet in the evening. cyclobenzap 2021-07 Yes [id number] 5mg Take 1 Univers rine 5 mg 0-20 tablet by ity o f tablet 00:00: mouth in [place] [address] the [facility] morning Branch and 1 tablet at noon and 1 tablet in the evening. DULoxetine 2021-07- No [id number] 60mg Take 2 Univers (CYMBALTA) 0-20 11-20 capsules ity of 30 mg 00:00: 05:59 by mouth [place] capsule 00 :00 in the [facility] for 30 days. divalproex 2021-07- No [id number] 750mg Take 3 Univers (DEPAKOTE) 0-20 11-20 tablets by it y of 250 mg EC 00:00: 05:59 mouth [place] tablet 00 :00 every 8 Medical (eight) Branch hours for 30 days. LORazepam 1 2021-07- No [id number] 1mg Take 1 Univers mg tablet 0-20 -31 tablet by ity of 00:00: 04:59 mouth [place] 00 :00 every 6 Medical (six) Branch hours as needed for Anxiety or Agitation for up to 10 days. acetaminoph 2021-07- No 4647 1{tbl} Take 1 U nivers en-codeine 0-20 10-28 tablet by ity of 300-30 mg 00:00: 04:59 mouth [place] tablet 00 :00 every 4 Medical (four) Branch hours as needed for Pain (scale 7-10) for up to 7 days. Indication s: acute pain Methylpredn 2021-07- No [id number] 4mg Take 1 Univers isolone 4 0-20 -22 tablet by ity of mg tablet 00:00: 04:59 mouth [place] 00 :00 every 8 Medical (eight) Branch hours for 3 doses. divalproex 2021-07 No 750mg 750 mg, Un lois (DEPAKOTE) 0-19 10-20 Oral, BID, it y of EC tablet 01:00: 09:40 First dose [place] 750 mg 00 :23 on [facility] 05/06/22 Branch at 2000, Until Discontinu ed, Routine levETIRAcet 2021-07 No 1500mg 1,500 mg, Univers am (KEPPRA) 0-18 10-18 Oral, BID, i ty of tablet 13:00: 18:38 First dose [place] 1,500 mg 00 :22 (after Medical last Branch modificati on) on [facility] 05/06/22 at 0800, Until Discontinu ed, Routine levETIRAcet 2021-07 No 1000mg 1,000 mg, Univers am (KEPPRA) 0-18 10-18 IV ity of in NACL 05:00: 05:46 Piggyback, [place]avier as (ISO-OS) 00 :00 ONCE, 1 Medical 1,000 dose, On Branch mg/100 mL [facility] RTU 05/06/22 at 0000, Administer over 15 Minutes, 100 mL methocarbam 2021-07 No 500mg 500 mg, U nivers oL 0-18 -18 Oral, QID, ity of (ROBAXIN) 02:15: 23:21 First dose [place] tablet 500 00 :42 on [facility] Medical mg 05/05/22 Branch at 2115, Until Discontinu ed, Routine LORazepam 2021-07 No 2mg 2 mg, Univer s (ATIVAN) 018 05-06 Oral, ity of tablet 2 mg 01:30: 01:03 ONCE, 1 [place] 00 :00 dose, On Medical [facility] 05/05/22 at 2030, Routine levETIRAcet 2021-07- No 1000mg 1,000 mg, Univers am (KEPPRA) 005-06 Oral, BID, i ty of tablet 01:00: 04:48 First dose [place] 1,000 mg 00 :06 on [facility] 05/05/22 Branch at 2000, Until Discontinu ed, Routine enoxaparin 2021-07 Yes 40mg 40 mg, Unive rs (LOVENOX) 018 Subcutaneo ity of injection 00:15: us, Q24H, [place] as 40 mg 00 First dose Medical on [facility] 05/05/22 at 1915, Until Discontinu ed, Routine levETIRAcet 2021-07 No 1000mg 1,000 mg, Univers am (KEPPRA) 0- 10 IV ity of in NACL 19:45: 20:05 Piggyback, [place] as (ISO-OS) 00 :00 ONCE, 1 Medical 1,000 dose, On Branch mg/100 mL [facility] RTU 05/05/22 at 1445, Administer over 15 Minutes, 100 mL clonazePAM 2021-07 Yes .5mg 0.5 mg, Univ ers (KLONOPIN) 0-17 Oral, BID, ity of tablet 0.5 19:30: First dose [place] mg 00 on [facility] 05/05/22 Branch at 1430, Until Discontinu ed, Routine ibuprofen 2021-07 Yes 600mg 600 mg, Univ ers (IBU) 0-17 Oral, TID ity of tablet 600 19:30: MEALS, [place] mg 00 First dose Medical on [facility] 05/05/22 at 1430, Until Discontinu ed, Routine gabapentin 2021-07 Yes 300mg 300 mg, Uni vers (NEURONTIN) 0-17 Oral, TID, it y of capsule 300 19:30: First dose [place] mg 00 on [facility] Medical 05/05/22 Branch at 1430, Until Discontinu ed, Routine cyclobenzap 2021-07 Yes 5mg 5 mg, Unive rs rine 0-17 Oral, TID, ity of (FLEXERIL) 19:30: First dose [place] tablet 5 mg 00 on [facility] Medica l 05/05/22 Branch at 1430, Until Discontinu ed, Routine acetaminoph 2021-07 Yes 1000mg 1,000 mg, Univers en 0-17 Oral, Q8H, ity of (TYLENOL) 19:30: First dose [place] tablet 00 on [facility] 1,000 mg 05/05/22 Branch at 1430, Until Discontinu ed, Routine pantoprazol 2021-07 Yes 40mg 40 mg, Univ ers e 0-17 Oral, ity of (PROTONIX) 14:00: DAILY, [place] EC tablet 00 First dose Medi kwame 40 mg on [facility] 05/05/22 at 0900, Until Discontinu ed, Routine docusate 2021-07 Yes 100mg 100 mg, Unive rs (COLACE) 0-17 Oral, ity of capsule 100 14:00: [place] 00 First [place] Medical on [facility] 05/05/22 at 0900, Until Discontinu ed, Routine HYDROcodone 2021-07- No 1{tbl} 1 tablet, Univers -acetaminop 0-17 10-17 Oral, ity of hen (NORCO) 10:32: 19:18 Q6[place]PRN, [place] 10-325 mg 02 :52 Starting Medica l tablet 1 on [facility] tablet 05/05/22 at 0532, Until [facility] 05/05/22 at 1418, Routine, Pain (scale 7-10) ondansetron 2021-07 Yes 4mg 4 mg, Slow Univers (ZOFRAN 0-17 IV Push, ity of (PF)) 06:49: Q6HPRN, [place] injection 4 57 Starting Medi kwame mg on [facility] 05/05/22 at 0149, Until Discontinu ed, Routine, Nausea and Vomiting (N/V) HYDROcodone 2021-07- No 1{tbl} 1 tablet, Univers -acetaminop 05-05 Oral, ity of hen (NORCO 06:49: 10:32 Q6HPRN, [place] 5) 5-325 mg 41 :14 Starting Medi kwame tablet 1 on [facility] tablet 05/05/22 at 0149, Until [facility] 05/05/22 at 0532, Routine, Pain (scale 7-10) acetaminoph 2021-07- No 325mg 325 mg, U nivers en 05-05 Oral, ity of (TYLENOL) 06:49: 19:18 Q4HPRN, [place] tablet 325 39 :52 Starting Medic al mg on [facility] Branch 05/05/22 at 0149, Until [facility] 05/05/22 at 1418, Routine, Pain (scale 4-6) ondansetron 2021-07 No 4mg 4 mg, Univ ers (ZOFRAN) 05-05 Oral, ity of tablet 4 mg 04:00: 03:26 ONCE, 1 [place] 00 :00 dose, On [facility] 05/04/22 at 2300, Routine morpHINE (2 2021-07 No 2mg 2 mg, Slow Univers mg/mL) 05-05 IV Push, ity of injection 2 04:00: 03:26 ONCE, 1 [place] mg 00 :00 dose, On [facility] 05/04/22 at 2300, Routine aspirin 81 0 Yes [id number] 81mg Take 1 U nivers mg chewable 9-28 tablet by ity of tablet 00:00: mouth in [place] [address] the Medical morning. Branch aspirin 81 2021-0 Yes [id number] 81mg Take 1 U nivers mg chewable 9-28 tablet by ity of tablet 00:00: mouth in [place] 00 the Medical morning. Branch aspirin 81 2021-0 Yes [id number] 81mg Take 1 U nivers mg chewable 9-28 tablet by ity of tablet 00:00: mouth in [place] [address] the Medical morning. Branch aspirin 81 2021-0 Yes [id number] 81mg Take 1 U nivers mg chewable 9-28 tablet by ity of tablet 00:00: mouth in [place] [address] the Medical morning. Branch MULTIVITAMI Yes 1{tbl} Take 1 Tab Univers N ORAL 04-15 by mouth ity of 17:39: daily. [place] 14 Medical Branch omega-3 Yes 1g Take 1 g Univer s fatty 04-15 by mouth ity of acids-vitam 17:39: daily. [...] by mouth ity of (PROTONIX) 17:39: daily. [place] 40 mg EC 14 Medical tablet Branch [...] (after Medical last Branch modificati on) on [facility] 04/14/22 at 2145, Until Discontinu ed, Routine ketorolac 2021- No 15mg 15 mg, Unive rs (TORADOL) 04-15 Slow IV ity of injection 02:13: 02:22 Push, [place] 15 mg 00 :00 ONCE, 1 Medical dose, On Branch [facility] 04/14/22 at 2115, Routine levETIRAcet Yes [id number] 1000mg Take 1 Univers am 1,000 mg 9-27 tablet by ity of tablet 00:00: mouth in [place] 00 the Medical morning Branch and 1 tablet in the evening. atorvastati Yes [id number] 40mg Take 1 Univers n 40 mg 9-27 tablet by ity of tablet 00:00: mouth at [place] 00 bedtime. Medical Branch atorvastati Yes [id number] 40mg Take 1 Univers n 40 mg 9-27 tablet by ity of tablet 00:00: mouth at [place] [address] bedtime. Medical Branch atorvastati Yes [id number] 40mg Take 1 Univers n 40 mg 9-27 tablet by ity of tablet 00:00: mouth at [place] [address] bedtime. Medical Branch atorvastati Yes [id number] 40mg Take 1 Univers n 40 mg 9-27 tablet by ity of tablet 00:00: mouth at [place] [address] bedtime. Medical Branch levETIRAcet 2021- No [id number] 1000mg Take 1 Univers am 1,000 mg 9-27 10-20 tablet by it y of tablet 00:00: 00:00 mouth in [place] 00 :00 the Medical morning Branch and 1 tablet in the evening. lidocaine 5 2021- No [id number] 1{patch Apply 1 Univers % (700 9-27 10-05 } Patch to ity of mg/patch) 00:00: 04:59 area(s) in [place] patch 00 :00 the Medical morning Branch [place] 7 [place]Ocod[place] [id number] 1{tbl} Take 1 U nivers -acetaminop [...] 12 Medical patch 1 Hours, Branch Patch [id number], Starting on Thu04/14/22 at 1645, Until Discontinu ed, Routine, Localized pain aspirin Yes 81mg 81 mg, Univers chewable 04-14 Oral, ity of tablet 81 21:30: DAILY, [place] mg 00 First dose Medical on Thu Branch 04/14/22 at 1630, Until Discontinu ed, Routine acetaminoph Yes 650mg 650 mg, Un lois en 04-14 Oral, ity of (TYLENOL) 21:29: Q6HPRN, [place] tablet 650 25 Starting Medic al mg on Thu Branch 04/14/22 at 1629, Until Discontinu ed, [...] 7-10), Pain (scale 4-6) sulfur 2021- No [id number] 5mL 5 mL, Univ ers hexafluorid 04-14 Intravenou i ty of e microsphr 16:45: 16:45 s, ONCE, 1 [place] (LUMASON) 00 :00 dose, On Medica l injection 5 Mon Branch mL 04/14/22 at 1145, Routine
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 : [employer] clopidogreL 0 Yes 75mg 75 mg, Univ ers (PLAVIX) 75 04-14 Oral, ity of mg tablet 14:00: DAILY, [place] 75 mg 00 First dose Medical on [facility] 04/14/22 at 0900, Until Discontinu ed, Routine pantoprazol 0 Yes 40mg 40 mg, Univ ers e 04-14 Oral, ity of (PROTONIX) 14:00: DAILY, [place] EC tablet 00 First dose Medi kwame 40 mg on [facility] 04/14/22 at 0900, Until Discontinu ed, Routine atorvastati 0 Yes 40mg 40 mg, Univ ers n (LIPITOR) 04-14 Oral, QHS, it y of tablet 40 02:00: First dose [place] mg 00 on [facility] 04/13/22 at Branch 2100, Until Discontinu ed, Routine LORazepam 2021- No 1mg 1 mg, Univer s (ATIVAN) 04-14 Oral, ity of tablet 1 mg 01:30: 01:45 ONCE, 1 [place] 00 :00 dose, On Medical [facility] 04/13/22 at 2030, Routine methocarbam Yes 500mg 500 mg, Un lois oL 04-14 Oral, QID, ity of (ROBAXIN) 01:00: First dose [place] tablet 500 00 on [facility] mg 04/13/22 at Branch 2000, Until Discontinu ed, Routine heparin 0 Yes 5000U 5,000 Univers (porcine) 04-14 Units, ity of injection 01:00: Subcutaneo [place] 5,000 Units 00 us, Q12H, Med ical First dose Branch on [place] 04/13/22 at 2000, Until Discontinu ed, Routine acetaminoph 2021- No 650mg 650 mg, U nivers en 04-14 Oral, ity of (TYLENOL) 00:23: 21:29 Q6HPRN, [place] tablet 650 25 :42 Starting Medic al mg on [facility] 04/13/22 at 1923, Until [facility] 04/14/22 at 1629, Routine, Pain (scale 1-3), Pain (scale 4-6), Temp > 38.5 C, Temp > 37.5 C lidocaine 2021- No 1{patch 1 Patch, Univers (LIDODERM) 04-14 } Topical, ity of 5 % (700 00:22: 13:51 Administer [place] mg/patch) 00 :00 over 12 Medical patch 1 Hours, Branch Patch ONCE, 1 dose, On [place] 04/13/22 at 1930, Routine FENTanyl PF No 50ug 50 mcg, Un lois (SUBLIMAZE 04-13 Slow IV ity o f (PF)) 20:30: 19:22 Push, [place] injection 00 :00 ONCE, 1 Medical 50 mcg dose, On Branch [place] 04/13/22 at 1530, Routine aspirin 2021- No 650mg 650 mg, Unive rs chewable 04-13 Oral, ity of tablet 650 20:15: 20:15 ONCE, 1 [place] mg 00 :00 dose, On Medical [facility] 04/13/22 at 1515, Routine clopidogreL 2021- No [...] 04/13/22 at 1430, MICHAEL iopamidol 2021- No [id number] 100mL 100 mL, Univers (ISOVUE 04-13 Intravenou ity o f 370-500 mL) 18:31: 18:32 s, ONCE, 1 [place] injection 00 :00 dose, On Medica l 100 mL [facility] 04/13/22 at 1345, Routine NaCl 0.9% Yes 5mL 5 mL, Slow Un lois (NS) 04-13 IV Push, ity of injection 5 18:14: PRN - SEE [place] mL 11 INSTRUCTIO Medical NS, Branch Starting on [place] 04/13/22 at 1314, Until Discontinu ed, 10 [...] 11/23/21 Branc h at 1715, MICHAEL ondansetron No 4mg 4 mg, Slow Univers (ZOFRAN [...] Administer over 15 Minutes, 100 mL Dose 2-0 No Unknown 4-08 00:00: 00 Dose 2022-0 No Unknown 4-08 00:00: 00 Prozac 20 2022-0 No 1mg mg capsule 3-21 00:00: 00 Prozac 20 2022-0 No 1mg mg capsule 3-21 00:00: 00 Dose 2022-0 No Unknown 3-16 00:00: 00 Dose 2022-0 No Unknown 3-16 00:00: 00 Dose 2022-0 No Unknown 3-16 00:00: 00 Dose 2022-0 No Unknown 3-16 00:00: 00 Dose 2022-0 No Unknown 3-15 00:00: 00 Dose 2022-0 No Unknown 3-15 00:00: 00 Dose 2022-0 No Unknown 3-15 00:00: 00 Dose 2022-0 No Unknown 3-15 00:00: 00 Dose 2022-0 No Unknown 3-15 00:00: 00 Dose 2022-0 No Unknown 3-15 00:00: 00 Dose 2022-0 No Unknown 3-15 00:00: 00 Dose 2022-0 No Unknown 3-15 00:00: 00 Dose 2022-0 No Unknown 3-15 00:00: 00 Dose 2022-0 No Unknown 3-15 00:00: 00 Dose 2022-0 No Unknown 3-15 00:00: 00 Dose 2022-0 No Unknown 3-15 00:00: 00 Dose 2022-0 No Unknown 3-15 00:00: 00 Dose 2022-0 No Unknown 3-15 00:00: 00 Dose 2022-0 No Unknown 3-15 00:00: 00 Dose 2022-0 No Unknown 3-15 00:00: 00 Dose 2022-0 No Unknown 3-15 00:00: 00 Dose 2022-0 No Unknown 3-15 00:00: 00 Dose 2022-0 No Unknown 3-15 00:00: 00 Dose 2022-0 No Unknown 3-15 00:00: 00 Dose 2022-0 No Unknown 3-14 00:00: 00 Dose 2022-0 No Unknown 3-14 00:00: 00 Dose 2022-0 No Unknown 3-14 00:00: 00 Dose 2022-0 No Unknown 3-14 00:00: 00 Dose 2022-0 No Unknown 3-14 00:00: 00 Dose 2022-0 No Unknown 3-14 00:00: 00 Dose 2022-0 No Unknown 3-14 00:00: 00 Dose 2022-0 No Unknown 3-14 00:00: 00 Dose 2022-0 No Unknown 3-14 00:00: 00 Dose 2022-0 No Unknown 3-14 00:00: 00 Dose 2022-0 No Unknown 3-14 00:00: 00 Dose 2022-0 No Unknown 3-14 00:00: 00 Dose 2022-0 No Unknown 3-14 00:00: 00 Dose 2022-0 No Unknown 3-14 00:00: 00 Dose 2022-0 No Unknown 3-14 00:00: 00 Dose 2022-0 No Unknown 3-14 00:00: 00 Dose 2022-0 No Unknown 3-14 00:00: 00 Dose 2022-0 No Unknown 3-14 00:00: 00 hydroxyzine 2022-0 No 1mg HCl 50 mg 3-09 tablet 00:00: 00 Prozac 20 2022-0 No 1mg mg capsule 3-09 00:00: 00 hydroxyzine 2022-0 No 1mg HCl 50 mg 3-09 tablet 00:00: 00 Prozac 20 2022-0 No 1mg mg capsule 3-09 00:00: 00 Dose 2022-0 No Unknown 3-06 00:00: 00 Dose 2022-0 No Unknown 3-06 00:00: 00 Dose 2022-0 No Unknown 3-06 00:00: 00 Dose 2022-0 No Unknown 3-06 00:00: 00 Dose 2022-0 No Unknown 3-06 00:00: 00 Dose 2022-0 No Unknown 3-06 00:00: 00 Dose 2022-0 No Unknown 3-06 00:00: 00 Dose 2022-0 No Unknown 3-06 00:00: 00 Dose 2022-0 No Unknown 3-06 00:00: 00 Dose 2022-0 No Unknown 3-06 00:00: 00 Wellbutrin 2021-1 No 1mg XL 150 mg 2-30 24 hr 00:00: tablet, 00 extended release Dose 2020-07 No Unknown 2-30 00:00: 00 Wellbutrin 2020-07 No 1mg XL 150 mg 2-30 24 hr 00:00: tablet, 00 extended release Dose 2020-07 No Unknown 2-30 00:00: 00 ibuprofen 2020-07 No 1mg 800 mg 2-02 tablet 00:00: 00 ibuprofen 2020-07 No 1mg 800 mg 2-02 tablet 00:00: 00 levetiracet 2020-07 No 1mg am 500 mg 1-30 tablet 00:00: 00 Dose 2020-07 No Unknown 1-30 00:00: 00 levetiracet 2020-07 No 1mg am 500 mg 1-30 tablet 00:00: 00 Dose 2020-07 No Unknown 1-30 00:00: 00 levoFLOXaci 2020- No 500mg 500 mg, U [...] mL 2099, MICHAEL nebulizer solution 3 mL NaCl 0.9% 2020- No 1000mL at 999 Uni vers (NS) IV 03-17 mL/hr, ity of infusion 01:57: 03:07 Intravenou [place] 1,000 mL 00 :00 s, ONCE, 1 Medic al dose, Sat Branch 03/16/21 at 2100, MICHAEL methylpredn 2020- No 125mg 125 mg, U nivers isolone sod 03-17 Slow IV ity of succ 01:57: 02:11 Push, [place] (SOLU-MEDRO 00 :00 ONCE, 1 Medic al L) dose, Sat Branch injection 03/16/21 at 125 mg 2100, STAT ipratropium 2020- No 3mL 3 mL, Univ ers -albuteroL 03-17 Inhalation it y of (DUONEB) 01:57: 02:15 , ONCE, 1 [place] 0.5 mg-3 00 :00 dose, Sat Medica l mg(2.5 mg 03/16/21 at [place] ch base)/3 mL 2099, MICHAEL nebulizer solution 3 mL ipratropium 2020- No 3mL 3 mL, Univ ers -albuteroL 03-17 Inhalation it y of (ONEB) 01:57: 02:15 , ONCE, 1 [place] [...] IV ity of succ 01:57: 02:11 Push, [place] (SOLU-MEDRO 00 :00 ONCE, 1 Medic al L) dose, Sat Branch injection 03/16/21 at 125 mg 2100, STAT ipratropium 2020- No 3mL 3 mL, Univ ers -albuteroL 03-17 Inhalation it y of (ONEB) 01:57: 02:15 , ONCE, 1 [place] 0.5 mg-3 00 :00 dose, Sat Medica l mg(2.5 mg 03/16/21 at [place] ch base)/3 mL 2099, MICHAEL nebulizer solution 3 mL levoFLOXaci 2020- No [id number] 500mg Take 1 Univers n 500 mg 03-17 tablet by ity o f tablet 00:00: 04:59 mouth [place] 00 :00 daily for Medical 6 days. Branch levoFLOXaci 2020-0 2020- No [id number] 500mg Take 1 Univers n 500 mg 03-17 tablet by ity o f tablet 00:00: 04:59 mouth [place] 00 :00 daily for Medical 6 days. Branch levoFLOXaci 2020-0 2020- No [id number] 500mg Take 1 Univers n 500 mg 03-17 tablet by ity o f tablet 00:00: 04:59 mouth [place] 00 :00 daily for Medical 6 days. Branch levoFLOXaci 2020- No [id number] 500mg Take 1 Univers n 500 mg 03-17 tablet by ity o f tablet 00:00: 04:59 mouth [place] 00 :00 daily for Medical 6 days. Branch predniSONE 2020- No [id number] 30mg Take 3 Univers 10 mg 03-17 tablets by ity of tablet 00:00: 04:59 mouth [place] 00 :00 daily for Medical 4 days. Branch predniSONE No [id number] 30mg Take 3 Univers 10 mg 03-17 tablets by ity of tablet 00:00: 04:59 mouth [place] 00 :00 daily for Medical 4 days. Branch predniSONE 2020- No [id number] 30mg Take 3 Univers 10 mg 03-17 tablets by ity of tablet 00:00: 04:59 mouth [place] 00 :00 daily for Medical 4 days. Branch predniSONE No [id number] 30mg Take 3 Univers 10 mg 03-17 tablets by ity of tablet 00:00: 04:59 mouth [place] 00 :00 daily for Medical 4 days. Branch albuterol 2020- No [id number] 4{puff} 4 Puff, Univers (VENTOLIN) 03-15 Inhalation it y of inhaler 4 01:45: 00:44 , ONCE, 1 [place] Puff 00 :00 dose, [facility] 03/14/21 at [place] 2044, Routine dexamethaso No [id number] 10mg 10 mg, Univers ne 03-15 Intramuscu ity of (DECADRON) 01:45: 00:45 lar, ONCE, [place] injection 00 :00 1 dose, Medical 10 mg [facility] [place] 03/14/21 at 2044, Routine albuterol Yes [id number] 2.5mg Inhale 3 Univers 2.5 mg /3 03-15 mL every 4 ity of mL (0.083 00:00: (four) [place] %) 00 hours as Medical nebulizer needed for Bran ch solution Wheezing or Shortness of Breath. albuterol Yes [id number] 2.5mg Inhale 3 Univers 2.5 mg /3 8-27 mL every 4 ity of mL (0.083 00:00: ([facility]) [place] %) 00 hours as Medical nebulizer needed for Bran ch solution Wheezing or Shortness of Breath. albuterol 2020-0 Yes [id number] 2.5mg Inhale 3 Univers 2.5 mg /3 8-27 mL every 4 ity of mL (0.083 00:00: ([facility]) [place] %) 00 hours as Medical nebulizer needed for Bran ch solution Wheezing or Shortness of Breath. albuterol 2020-0 Yes [id number] 2.5mg Inhale 3 Univers 2.5 mg /3 8-27 mL every 4 ity of mL (0.083 00:00: ([facility]) [place] %) 00 hours as Medical nebulizer needed for Bran ch solution Wheezing or Shortness of Breath. albuterol 2020-0 Yes [id number] 2.5mg Inhale 3 Univers 2.5 mg /3 8-27 mL every 4 ity of mL (0.083 00:00: ([facility]) [place] %) 00 hours as Medical nebulizer needed for Bran ch solution Wheezing or Shortness of Breath. albuterol 2020-0 Yes [id number] 2.5mg Inhale 3 Univers 2.5 mg /3 8-27 mL every 4 ity of mL (0.083 00:00: ([facility]) [place] %) 00 hours as Medical nebulizer needed for Bran ch solution Wheezing or Shortness of Breath. albuterol 2020-0 Yes [id number] 2.5mg Inhale 3 Univers 2.5 mg /3 8-27 mL every 4 ity of mL (0.083 00:00: (four) [place] %) 00 hours as Medical nebulizer needed for Bran ch solution Wheezing or Shortness of Breath. albuterol 2020-0 Yes [id number] 2.5mg Inhale 3 Univers 2.5 mg /3 8-27 mL every 4 ity of mL (0.083 00:00: (four) [place] %) 00 hours as Medical nebulizer needed for Bran ch solution Wheezing or Shortness of Breath. albuterol 2020-0 Yes [id number] 2.5mg Inhale 3 Univers 2.5 mg /3 8-27 mL every 4 ity of mL (0.083 00:00: (four) [place] %) 00 hours as Medical nebulizer needed for Bran ch solution Wheezing or Shortness of Breath. albuterol 2020-0 Yes [id number] 2.5mg Inhale 3 Univers 2.5 mg /3 8-27 mL every 4 ity of mL (0.083 00:00: (four) [place] %) 00 hours as Medical nebulizer needed for Bran ch solution Wheezing or Shortness of Breath. albuterol 2020-0 Yes [id number] 2.5mg Inhale 3 Univers 2.5 mg /3 8-27 mL every 4 ity of mL (0.083 00:00: (four) [place] %) 00 hours as Medical nebulizer needed for Bran ch solution Wheezing or Shortness of Breath. albuterol 2020-0 Yes [id number] 2.5mg Inhale 3 Univers 2.5 mg /3 8-27 mL every 4 ity of mL (0.083 00:00: (four) [place] %) 00 hours as Medical nebulizer needed for Bran ch solution Wheezing or Shortness of Breath. albuterol 2020-0 Yes [id number] 2.5mg Inhale 3 Univers 2.5 mg /3 8-27 mL every 4 ity of mL (0.083 00:00: (four) [place] %) 00 hours as Medical nebulizer needed for Bran ch solution Wheezing or Shortness of Breath. albuterol 2020-0 Yes [id number] 2.5mg Inhale 3 Univers 2.5 mg /3 8-27 mL every 4 ity of mL (0.083 00:00: (four) [place] %) 00 hours as Medical nebulizer needed for Bran ch solution Wheezing or Shortness of Breath. levETIRAcet 202- No 1000mg 1,000 mg, Univers am (KEPPRA) 02-19 IV ity of in NACL 20:15: 19:30 [place], [place] (ISO-OS) 00 :00 ONCE, 1 Medical 1,000 dose, Tue Branch mg/100 mL 02/19/21 at RTU 1515, Administer over 15 Minutes, 100 mL levetiracet 2020-0 Yes Take by Uni vers am (KEPPRA 8-03 mouth. ity of ORAL) 19:45: [address] levetiracet 0 Yes Take by Uni vers am (KEPPRA 8-03 mouth. ity of ORAL) 19:45: [address] levetiracet 0 Yes Take by Uni vers am (KEPPRA 8-03 mouth. ity of ORAL) 19:45: [address] levetiracet 0 Yes Take by Uni vers am (KEPPRA 8-03 mouth. ity of ORAL) 19:45: [address] levetiracet 0 Yes Take by Uni vers am (KEPPRA 8-03 mouth. ity of ORAL) 19:45: [address] levetiracet 0 Yes Take by Uni vers am (KEPPRA 8-03 mouth. ity of ORAL) 19:45: [address] LISINOPRIL- 2020- No Take by Un lois HYDROCHLORO 02-19 mouth. ity o f THIAZIDE 19:41: 00:00 [place] ORAL 15 :00 [facility] dicyclomine 2020- No 20mg 20 mg, Uni vers (BENTYL) 02-19 Intramuscu ity of injection 19:15: 19:04 lar, ONCE, [place] 20 mg 00 :00 1 dose, Medical Tu 02/19/21 Branch at 1415, Routine proMETHazin 2020- No 25mg 25 mg, IV Univers e 02-19 Piggyback, ity of (PHENERGAN) 19:15: 19:03 ONCE, 1 [place] 25 mg in 00 :00 dose, Tue Medica l NaCl 0.9% 02/19/21 at [facility] h (NS) 50 mL 1415, 50 piggyback mL morpHINE 2020- No 4mg 4 mg, Slow Un lois injection 4 02-19 IV Push, ity of mg 17:15: 17:05 ONCE, 1 [place] 00 :00 dose, Tu Medical 02/19/21 at Branch 1215, STAT NaCl [...] mg 02/19/21 at Branch 1200, MICHAEL iopamidol 202- No [id number] 100mL 100 mL, Univers (ISOVUE 02-19 Intravenou ity o f 370-500 mL) 16:35: 16:45 s, ONCE, 1 [place] injection 00 :00 dose, Tue Medic al 100 mL 02/19/21 at Branch 1145, Routine levetiracet Yes Take by Uni vers am (KEPPRA 8-03 mouth. ity of ORAL) 14:45: [address] levetiracet 0 Yes Take by Uni vers am (KEPPRA 8-03 mouth. ity of ORAL) 14:45: [address] levetiracet 0 Yes Take by Uni vers am (KEPPRA 8-03 mouth. ity of ORAL) 14:45: [address] levetiracet Yes Take by Uni vers am (KEPPRA 8-03 mouth. ity of ORAL) 14:45: [address] levetiracet 0 Yes Take by Uni vers am (KEPPRA 8-03 mouth. ity of ORAL) 14:45: [address] proMETHazin 0 Yes [id number] 25mg Take 1 Univers e 25 mg 8-03 tablet by ity of tablet 00:00: mouth [place] 00 every 6 Medical (six) Branch hours as needed for Nausea and Vomiting (N/V). dicyclomine Yes [id number] 20mg Take 1 Univers 20 mg 8-03 tablet by ity of tablet 00:00: mouth 4 [place] 00 (four) Medical times Branch daily as needed for Abdominal pain. proMETHazin 2020-0 Yes [id number] 25mg Take 1 Univers e 25 mg 8-03 tablet by ity of tablet 00:00: mouth [place] 00 every 6 Medical (six) Branch hours as needed for Nausea and Vomiting (N/V). dicyclomine 2020-0 Yes [id number] 20mg Take 1 Univers 20 mg 8-03 tablet by ity of tablet 00:00: mouth 4 [place] 00 (four) Medical times Branch daily as needed for Abdominal pain. proMETHazin 2020-0 Yes [id number] 25mg Take 1 Univers e 25 mg 8-03 tablet by ity of tablet 00:00: mouth [place] 00 every 6 Medical (six) Branch hours as needed for Nausea and Vomiting (N/V). dicyclomine 2020-0 Yes [id number] 20mg Take 1 Univers 20 mg 8-03 tablet by ity of tablet 00:00: mouth 4 00 (four) Medical times Branch daily as needed for Abdominal pain. proMETHazin 2020-0 Yes [id number] 25mg Take 1 Univers e 25 mg 8-03 tablet by ity of tablet 00:00: mouth [place] 00 every 6 Medical (six) Branch hours as needed for Nausea and Vomiting (N/V). dicyclomine 2020-0 Yes [id number] 20mg Take 1 Univers 20 mg 8-03 tablet by ity of tablet 00:00: mouth 4 00 (four) Medical times Branch daily as needed for Abdominal pain. proMETHazin 2020-0 Yes [id number] 25mg Take 1 Univers e 25 mg 8-03 tablet by ity of tablet 00:00: mouth [place] 00 every 6 Medical (six) Branch hours as needed for Nausea and Vomiting (N/V). dicyclomine 2020-0 Yes [id number] 20mg Take 1 Univers 20 mg 8-03 tablet by ity of tablet 00:00: mouth 4 00 (four) Medical times Branch daily as needed for Abdominal pain. proMETHazin 2020-0 Yes [id number] 25mg Take 1 Univers e 25 mg 8-03 tablet by ity of tablet 00:00: mouth [place] 00 every 6 Medical (six) Branch hours as needed for Nausea and Vomiting (N/V). dicyclomine 2020-0 Yes [id number] 20mg Take 1 Univers 20 mg 8-03 tablet by ity of tablet 00:00: mouth 4 00 (four) Medical times Branch daily as needed for Abdominal pain. proMETHazin 2020-0 Yes [id number] 25mg Take 1 Univers e 25 mg 8-03 tablet by ity of tablet 00:00: mouth [place] 00 every 6 Medical (six) Branch hours as needed for Nausea and Vomiting (N/V). dicyclomine 2020-0 Yes [id number] 20mg Take 1 Univers 20 mg 8-03 tablet by ity of tablet 00:00: mouth 4 00 (four) Medical times Branch daily as needed for Abdominal pain. proMETHazin 2020-0 Yes [id number] 25mg Take 1 Univers e 25 mg 8-03 tablet by ity of tablet 00:00: mouth [place] 00 every 6 Medical (six) Branch hours as needed for Nausea and Vomiting (N/V). dicyclomine 2020-0 Yes [id number] 20mg Take 1 Univers 20 mg 8-03 tablet by ity of tablet 00:00: mouth (four) Medical times Branch daily as needed for Abdominal pain. proMETHazin 2020-0 Yes [id number] 25mg Take 1 Univers e 25 mg 8-03 tablet by ity of tablet 00:00: mouth [place] 00 every 6 Medical (six) Branch hours as needed for Nausea and Vomiting (N/V). dicyclomine 2020-0 Yes [id number] 20mg Take 1 Univers 20 mg 8-03 tablet by ity of tablet 00:00: mouth (four) Medical times Branch daily as needed for Abdominal pain. proMETHazin 2020-0 Yes [id number] 25mg Take 1 Univers e 25 mg 8-03 tablet by ity of tablet 00:00: mouth [place] 00 every 6 Medical (six) Branch hours as needed for Nausea and Vomiting (N/V). dicyclomine 202-0 Yes [id number] 20mg Take 1 Univers 20 mg 8-03 tablet by ity of tablet 00:00: mouth 4 00 (four) Medical times Branch daily as needed for Abdominal pain. proMETHazin 2020-0 Yes [id number] 25mg Take 1 Univers e 25 mg 8-03 tablet by ity of tablet 00:00: mouth [place] 00 every 6 Medical (six) Branch hours as needed for Nausea and Vomiting (N/V). dicyclomine 2021-0 Yes [id number] 20mg Take 1 Univers 20 mg 8-03 tablet by ity of tablet 00:00: mouth 4 00 (four) Medical times Branch daily as needed for Abdominal pain. proMETHazin 2020-0 Yes [id number] 25mg Take 1 Univers e 25 mg 8-03 tablet by ity of tablet 00:00: mouth [place] 00 every 6 Medical (six) Branch hours as needed for Nausea and Vomiting (N/V). dicyclomine 2020-0 Yes [id number] 20mg Take 1 Univers 20 mg 8-03 tablet by ity of tablet 00:00: mouth 00 (four) Medical times Branch daily as needed for Abdominal pain. proMETHazin 2020-0 Yes [id number] 25mg Take 1 Univers e 25 mg 8-03 tablet by ity of tablet 00:00: mouth [place] 00 every 6 Medical (six) Branch hours as needed for Nausea and Vomiting (N/V). dicyclomine 2020-0 Yes [id number] 20mg Take 1 Univers 20 mg 8-03 tablet by ity of tablet 00:00: mouth 00 (four) Medical times Branch daily as needed for Abdominal pain. proMETHazin 2020-0 Yes [id number] 25mg Take 1 Univers e 25 mg 8-03 tablet by ity of tablet 00:00: mouth [place] 00 every 6 Medical (six) Branch hours as needed for Nausea and Vomiting (N/V). dicyclomine 2020-0 Yes [id number] 20mg Take 1 Univers 20 mg 8-03 tablet by ity of tablet 00:00: mouth 00 (four) Medical times Branch daily as needed for Abdominal pain. proMETHazin 2020-0 Yes [id number] 25mg Take 1 [facility] 25 mg 8-03 tablet by [facility] tablet 00:00: mouth [place] 00 every 6 Medical (six) Branch hours as needed for Nausea and Vomiting (N/V). dicyclomine 2020-0 Yes [id number] 20mg Take 1 [facility] 20 mg 8-03 tablet by [facility] tablet 00:00: mouth 4 00 (four) Medical times Branch daily as needed for Abdominal pain. ZONISAMIDE Yes TAKE 1 [facility] 100 mg 4-29 CAPSULE BY [facility] capsule 00:00: MOUTH [place] 00 TWICE A Medical DAY Branch ZONISAMIDE 2018-2020- No TAKE 1 Univ ers 100 mg -29 02-19 CAPSULE BY ity of capsule 00:00: 00:00 MOUTH [place] 00 :00 TWICE A Medical DAY Branch ondansetron 2017-0 Yes 4mg Take 4 mg U nivers (ZOFRAN) 4 7-24 by mouth ity o f mg tablet 20:05: every 8 [place] [address] (eight) Medical hours as Branch needed. pantoprazol 2018-0 Yes 40mg Take 40 mg Univers e 7-24 by mouth ity of (PROTONIX) 20:05: daily. [place] 40 mg EC Medical tablet Branch ondansetron 2017-0 Yes 4mg Take 4 mg U nivers (ZOFRAN) 4 7-24 by mouth ity o f mg tablet 20:05: every 8 [place] [address] (eight) Medical hours as Branch needed. pantoprazol 2018-0 Yes 40mg Take 40 mg Univers e 7-24 by mouth ity of (PROTONIX) 20:05: daily. [place] 40 mg EC Medical tablet Branch LISINOPRIL- 2017-0 Yes Take by Uni vers HYDROCHLORO 7-24 mouth. ity of THIAZIDE 20:05: [place] ORAL Medical Branch ondansetron 2017-0 Yes 4mg Take 4 mg U nivers (ZOFRAN) 4 7-24 by mouth ity o f mg tablet 20:05: every 8 [place] [address] (eight) Medical hours as Branch needed. pantoprazol 2018-0 Yes 40mg Take 40 mg Univers e 7-24 by mouth ity of (PROTONIX) 20:05: daily. [place] 40 mg EC Medical tablet Branch ondansetron 2018-0 Yes 4mg Take 4 mg U nivers (ZOFRAN) 4 7-24 by mouth ity o f mg tablet 20:05: every 8 [place] [address] (eight) Medical hours as Branch needed. pantoprazol [...] 7-24 by mouth ity of 19:58: daily. [place] 14 Medical Branch loratadine 2018-0 Yes Take by Univ ers (CLARITIN 7-24 mouth ity of LIQUI-GEL) 19:58: daily. [place] 10 mg 14 Medical capsule Branch MULTIVITAMI Yes 1{tbl} Take 1 Tab Univers N ORAL 7-24 by mouth ity of 19:58: daily. [place] [address] Medical Branch loratadine [address] [facility] ers (CLARITIN 7-24 mouth ity of LIQUI-GEL) 19:58: daily. [place] 10 mg 14 Medical capsule Branch MULTIVITAMI Yes 1{tbl} Take 1 Tab Univers N ORAL 7-24 by mouth ity of 19:58: daily. [place] [address] Medical Branch loratadine Yes Take by Univ ers (CLARITIN 7-24 mouth ity of LIQUI-GEL) 19:58: daily. [place] 10 mg 14 Medical capsule Branch MULTIVITAMI Yes 1{tbl} Take 1 Tab Univers N ORAL 7-24 by mouth ity of 19:58: daily. [place] [address] Medical Branch loratadine Yes Take by Univ ers (CLARITIN 7-24 mouth ity of LIQUI-GEL) 19:58: daily. [place] 10 mg 14 Medical capsule Branch MULTIVITAMI Yes 1{tbl} Take 1 Tab Univers N ORAL 7-24 by mouth ity of 19:58: daily. [place] [address] Medical Branch loratadine Yes Take by [facility] ers (CLARITIN 7-24 mouth ity of LIQUI-GEL) 19:58: daily. [place] 10 mg 14 Medical capsule Branch MULTIVITAMI Yes 1{tbl} Take 1 Tab Univers N ORAL 7-24 by mouth ity of 19:58: daily. [place] [address] Medical Branch loratadine Yes Take by [facility] ers (CLARITIN 7-24 mouth ity of LIQUI-GEL) 19:58: daily. [place] 10 mg 14 Medical capsule Branch MULTIVITAMI Yes 1{tbl} Take 1 Tab Univers N ORAL 7-24 by mouth ity of 19:58: daily. [place] [address] Medical Branch loratadine Yes Take by [facility] ers (CLARITIN 7-24 mouth ity of LIQUI-GEL) 19:58: daily. [place] 10 mg 14 Medical capsule Branch ondansetron Yes 4mg Take 4 mg U nivers (ZOFRAN) 4 7-24 by mouth ity o f mg tablet 15:05: every 8 [place] [address] (eight) Medical hours as Branch needed. pantoprazol [...] 7-24 by mouth ity of 14:58: daily. [place] 14 Medical Branch loratadine 0 Yes Take by Univ ers (CLARITIN 7-24 mouth ity of LIQUI-GEL) 14:58: daily. [place] 10 mg 14 Medical capsule Branch MULTIVITAMI 0 Yes 1{tbl} Take 1 Tab Univers N ORAL 7-24 by mouth ity of 14:58: daily. [place] [address] Medical Branch loratadine Yes Take by [facility] ers (CLARITIN 7-24 mouth ity of LIQUI-GEL) 14:58: daily. [place] 10 mg 14 Medical capsule Branch MULTIVITAMI Yes 1{tbl} Take 1 Tab Univers N ORAL 7-24 by mouth ity of 14:58: daily. [place] [address] Medical Branch loratadine Yes Take by [facility] ers (CLARITIN 7-24 mouth ity of LIQUI-GEL) 14:58: daily. [place] 10 mg 14 Medical capsule Branch MULTIVITAMI Yes 1{tbl} Take 1 Tab Univers N ORAL 7-24 by mouth ity of 14:58: daily. [place] [address] Medical Branch loratadine Yes Take by [facility] ers (CLARITIN 7-24 mouth ity of LIQUI-GEL) 14:58: daily. [place] 10 mg 14 Medical capsule Branch MULTIVITAMI Yes 1{tbl} Take 1 Tab Univers N ORAL 7-24 by mouth ity of 14:58: daily. [place] [address] Medical Branch loratadine Yes Take by [facility] ers (CLARITIN 7-24 mouth ity of LIQUI-GEL) [...] Immunizations Ordered Filled Immunization Date Status Comments [facility] e Immunization Name Name SARS-COV-2 COVID-19 2022-02-19 Completed Unive rsity of PFIZER BA-SUCROSE 00:00:00 [place] [facility] VACCINE (ROSE TOP) Branch SARS-COV-2 COVID-19 2022-02-19 Completed Unive rsity of PFIZER BA-SUCROSE 00:00:00 [place] [facility] VACCINE (ROSE TOP) Branch SARS-COV-2 COVID-19 2022-02-19 Completed Unive rsity of PFIZER BA-SUCROSE 00:00:00 [place] [facility] VACCINE (ROSE TOP) Branch SARS-COV-2 COVID-19 2022-02-19 Completed Unive rsity of PFIZER BA-SUCROSE 00:00:00 [place] [facility] VACCINE (ROSE TOP) Branch SARS-COV-2 COVID-19 2022-02-19 Completed Unive rsity of PFIZER BA-SUCROSE 00:00:00 [place] [facility] VACCINE (ROSE TOP) Branch SARS-COV-2 COVID-19 2021-05-24 Completed Unive rsity of PFIZER VACCINE 00:00:00 [facility] Branch SARS-COV-2 COVID-19 2021-05-24 Completed Unive rsity of PFIZER VACCINE 00:00:00 [facility] Branch SARS-COV-2 COVID-19 2021-05-24 Completed Unive rsity of PFIZER VACCINE 00:00:00 [facility] Branch SARS-COV-2 COVID-19 2021-05-24 Completed Unive rsity of PFIZER VACCINE 00:00:00 [facility] Branch SARS-COV-2 COVID-19 2021-05-24 Completed Unive rsity of PFIZER VACCINE 00:00:00 [facility] Branch SARS-COV-2 COVID-19 2021-05-24 Completed Unive rsity of PFIZER VACCINE 00:00:00 [facility] Branch SARS-COV-2 COVID-19 2021-05-24 Completed Unive rsity of PFIZER VACCINE 00:00:00 [facility] Branch SARS-COV-2 COVID-19 2021-05-03 Completed Unive rsity of PFIZER VACCINE 00:00:00 [facility] [place] [facility] SARS-COV-2 COVID-19 2021-05-03 Completed Unive rsity of PFIZER VACCINE 00:00:00 [facility] [place] [facility] SARS-COV-2 COVID-19 2021-05-03 Completed Unive rsity of PFIZER VACCINE 00:00:00 [facility] [place] [facility] SARS-COV-2 COVID-19 2021-05-03 Completed Unive rsity of PFIZER VACCINE 00:00:00 [facility] [place] [facility] SARS-COV-2 COVID-19 2021-05-03 Completed Unive rsity of PFIZER VACCINE 00:00:00 [facility] [place] [facility] SARS-COV-2 COVID-19 2021-05-03 Completed Unive rsity of PFIZER VACCINE 00:00:00 [facility] [place] [facility] SARS-COV-2 COVID-19 2021-05-03 Completed Unive rsity of PFIZER VACCINE 00:00:00 [facility] [place] [facility] SARS-COV-2 COVID-19 2021-05-03 Completed Unive rsity of PFIZER VACCINE 00:00:00 [facility] [place] [facility] Vital Signs Vital Name Observation Time Observation Value Comments Source Heart rate 2022-08-02 02:02:00 108 /min [facility] Respiratory rate 2022-08-02 02:02:00 28 /min [facility] in 2022-08-02 02:02:00 97 /min [facility] Arterial blood by [facility] Pulse oximetry [place] Body temperature 2022-08-02 01:00:00 36.44 Radha Univ ersity of [facility] Systolic blood 2022-08-01 23:29:00 145 mm[Hg] Univer sity of pressure [facility] Diastolic blood 2022-08-01 23:29:00 103 mm[Hg] Unive rsity of pressure [facility] Body weight 2022-08-01 09:16:00 97.977 kg [facility] BMI 2022-08-01 09:16:00 38.26 kg/m2 [facility] Body height 2022-07-31 21:54:00 160 cm [facility] Systolic blood 2022-05-08 16:40:00 146 mm[Hg] Univer sity of pressure [place] [facility] Diastolic blood 2022-05-08 16:40:00 96 mm[Hg] Unive rsity of pressure [place] [facility] Heart rate 2022-05-08 16:40:00 112 /min [facility] [place] [facility] Body temperature 2022-05-08 16:40:00 36.78 Radha Univ ersity of [place] [facility] Respiratory rate 2022-05-08 16:40:00 18 /min Univ ersity of [place] [facility] Oxygen saturation in 2022-05-08 16:40:00 94 /min University of Arterial blood by [place] [employer] [facility] Pulse oximetry Branch Body height 2022-05-05 23:44:00 160 cm Universi ty [facility] [place] [facility] Body weight 2022-05-05 23:37:00 81.647 kg Universi ty [facility] [place] [facility] BMI 2022-05-05 23:37:00 31.89 kg/m2 [facility]i [facility] [place] [facility] Systolic blood 2022-04-15 18:52:00 104 mm[Hg] Univer sity of pressure [place] [facility] Diastolic blood 2022-04-15 18:52:00 82 mm[Hg] Unive rsity of pressure [place] [facility] Heart rate 2022-04-15 18:52:00 114 /min Universi ty [facility] [place] [facility] Oxygen saturation in 2022-04-15 18:52:00 98 /min University of Arterial blood by [place] [employer] [facility] Pulse oximetry Branch Body temperature 2022-04-15 16:14:00 36.28 Radha Univ ersity of [place] [facility] Respiratory rate 2022-04-15 16:14:00 17 /min Univ ersity [facility] [place] [facility] Body height 2022-04-13 21:08:00 160 cm [facility] [place] [facility] Body weight 2022-04-13 21:08:00 91.173 kg [facility] [place] [facility] BMI 2022-04-13 21:08:00 35.61 kg/m2 [facility] [place] [facility] Systolic blood 2021-11-23 21:30:00 132 mm[Hg] Univer sity of pressure [place] [facility] Diastolic blood 2021-11-23 21:30:00 76 mm[Hg] Unive rsity of pressure [place] [facility] Heart rate 2021-11-23 21:30:00 95 /min Universi ty [facility] [place] [facility] Respiratory rate 2021-11-23 21:30:00 13 /min Univ ersity of [place] [facility] Oxygen saturation in 2021-11-23 21:30:00 97 /min University of Arterial blood by [facility] Pulse oximetry Branch Body temperature 2021-11-23 20:15:00 37.56 Radha Univ ersity [facility] [place] [facility] Systolic blood 2021-03-17 03:00:00 117 [...] 96 /min University of Arterial blood by [facility] Pulse oximetry Branch Body temperature 2021-03-17 00:39:00 37.11 Radha Univ ersity [facility] [place] [facility] Body [...] Branch BMI 2021-03-15 00:14:00 23.03 kg/m2 Universi [facility] Oxygen saturation in 2021-03-15 00:14:00 98 /min University of Arterial blood by [place] [facility] kwame Pulse oximetry Branch Systolic blood 2021-02-19 18:00:00 131 mm[Hg] Univer sity of pressure [facility] Diastolic blood 2021-02-19 18:00:00 80 mm[Hg] Unive rsity of [facility] Heart rate 2021-02-19 18:00:00 83 /min Universi ty [facility] Respiratory rate 2021-02-19 18:00:00 18 /min [facility] in 2021-02-19 18:00:00 100 /min University of Arterial blood by [facility] Pulse oximetry Branch Body temperature 2021-02-19 15:47:[address] [facility] Body height 2021-02-19 15:47:00 160 cm [facility] Body weight 2021-02-19 15:47:00 58.968 kg [facility] BMI 2021-02-19 15:47:00 23.03 kg/m2 [facility] Respiratory rate 2022-08-03 14:40:00 18 /min [facility] Systolic blood 2022-08-03 12:13:00 112 mm[Hg] [facility] Diastolic blood 2022-08-03 12:13:00 77 mm[Hg] [facility] Heart rate 2022-08-03 12:13:00 115 /min [facility] Oxygen saturation in 2022-08-03 12:13:00 93 /min [facility] Arterial blood by Medical Ce nter Pulse oximetry Body temperature 2022-08-03 12:00:00 36.83 Radha [facility] Body height 2022-08-02 21:52:00 160.2 cm [facility] Body weight 2022-08-02 21:52:00 95 kg [facility] BMI 2022-08-02 21:52:00 37.02 kg/m2 [facility] BP Systolic 2022-07-24 13:31:00 136 mm[Hg] BP Diastolic 2022-07-24 13:31:00 83 mm[Hg] Weight Measured 2022-07-24 13:31:00 208.40 pounds Height Measured 2022-07-24 13:31:00 63.00 inches Body Temperature 2022-07-24 13:31:00 208.40 degrees Heart Rate 2022-07-24 13:31:00 121.00 /min Respiratory Rate 2022-07-24 13:31:00 BP Systolic 2021-09-30 18:15:00 148 mm[Hg] BP [...] Date / Time Performing Clinician Source Performed ECG 12-LEAD 2022-08-03 Unknown, H[facility]7 Doctor [facility] 05:03:32 [facility] ECG 12-LEAD 2022-08-03 Unknown, Hl7 Doctor [facility] 05:03:32 [facility] LIPID PANEL 2022-08-[address] [facility] 21:14:00 [facility] TSH/FREE T4 IF INDICATED 2022-08-02 [facility]onaldo [facility]ower [facility] 21:14:00 [facility] VITAMIN B12 2022-08-02 Donaldo [facility]ower [facility] 21:14:00 [facility] HEMOGLOBIN A1C 2022-08-[address] [facility] 21:14:00 [facility] COMPREHENSIVE METABOLIC PANEL 2022-08-02 [facility]00 [facility] CBC W/PLT COUNT & AUTO 2022-08-02 [facility] DIFFER[facility] 21:14:00 [facility] RPR 2022-08-[address] [facility] 21:14:00 [facility] HC LAB HIV-1 AG W/HIV-1&2 AB 2022-08-[address] [facility] 21:14:00 [facility] C-REACTIVE PROTEIN 2022-08-[address] [facility] 21:14:00 [facility] CBC W/PLT COUNT & AUTO 2022-08-02 Donaldo [facility]ightower [facility] DIFFERENTIAL 21:14:00 [facility] EKG-SCANNED 2022-08-02 Eliceo Montanez [facility] 00:00:00 Sc[facility] CT HEAD WO CONTRAST 2022-08-01 Lloyd [facility] o f 23:52:15 [facility] GALV ONLY - INFLUENZA A B RSV 2022-08-01 Letitia Chambers iversity of PCR 18:28:00 [facility] TRANSTHORACIC ECHO (TTE) 2022-08-[facility] COMPLETE W/ CONTRAST 14:42:00 [facility] al Branch MAGNESIUM 2022-08-01 Lorenza Her [place] of 10:42:00 [facility] BASIC METABOLIC PANEL (NA, K, 2022-08-01 Lorenza Her iversity of CL, CO2, GLUCOSE, BUN, 10:42:00 [facility] ical CREATININE, CA) Branch CBC WITH DIFF 2022-08-01 Lorenza Her [place] of 10:42:00 [facility] N-TERMINAL PRO-BNP 2022-08-01 Tc [facility] of 10:42:00 [facility] POCT GLUCOSE (AUTOMATED) 2022-08-[address] [facility] ity of 06:56:00 [facility] CRITICAL CARE 2022-07-31 Sav Rondon [place] of 22:31:36 [facility] URINALYSIS 2022-07-31 Sav Rondon [place] of 20:52:00 [facility] URINE DRUG (IMMUNOASSAY) - 2022-07-[address] [facility] COMPREHENSIVE DRUG SCREEN W/O 20:52[place]00 [place] [facility] REFLEX Branch XR CHEST 1 VW 2022-07-31 Sav Rondon of 18:45:17 [facility] LIPASE 2022-07-31 Sav Rondon of 17:58:00 [facility] TROPONIN I 2022-07-31 Sav Rondon [place] of 17:58:00 [facility] COMP. METABOLIC PANEL (62478) 2022-07-31 Sav Rondon iversity of 17:58:00 [facility] CBC WITH DIFF 2022-07-31 Sav Rondon [place] of 17:58:00 [facility] PROTHROMBIN TIME / INR 2022-07-[address] [facility] 17:58:00 [facility] ACTIVATED PARTIAL THRMPLAS 2022-07-[address] [facility] rs[facility] of DAVID 17:58:00 [facility] N-TERMINAL PRO-BNP 2022-07-31 Sav Rondon [place] 17:58:00 [facility] HB ECG ROUTINE & RHYTHM STRIP 2022-07-31 Sav Rondon iversity of 17:46:28 [facility] NOTICE OF PRIVACY PRACTICES 2022-07-31 Doctor Unassigned, U niversity of 17:35:38 [place] [facility] CONSENT/REFUSAL FOR DIAGNOSIS 2022-07-31 Doctor Unassigned, University of AND TREATMENT 17:35:13 [place] [facility] PHOSPHORUS 2022-05-08 Azeem Meehan [place] of 05:51:00 [facility] MAGNESIUM 2022-05-08 Shefali [facility] of 05:51:00 [facility] BASIC METABOLIC PANEL (NA, K, 2022-05-08 Shefali [place] U niversity of CL, CO2, GLUCOSE, BUN, 05:51:00 [place] [facility] ical CREATININE, CA) Branch CBC WITH DIFF 2022-05-08 Shefali [facility] of 05:51:00 [facility] BASIC METABOLIC PANEL (NA, K, 2022-05-07 Cintron [facility] of CL, CO2, GLUCOSE, BUN, 07:09:00 Shailesh [facility] ica CREATININE, CA) Branch CBC WITH DIFF 2022-05-07 [facility] of 07:09:00 [facility] POCT GLUCOSE (AUTOMATED) 2022-05-[address] [facility] ity of 01:16:00 [facility] HB ABO GROUPING 2022-05-06 Shaun [facility] of 05:07:00 Nancy [facility] BASIC METABOLIC PANEL (NA, K, 2022-05-06 Shefali Azeem U niversity of CL, CO2, GLUCOSE, BUN, 05:04:00 [place] [facility] ical CREATININE, CA) Branch CBC WITH DIFF 2022-05-06 Shefali [facility] of 05:04:00 [facility] KEPPRA (LEVETIRACETAM) 2022-05-06 Shefali Azeem [facility] ty of 05:04:00 [facility] MR LUMBAR SPINE WO CONTRAST 2022-05-06 Kneedler, Ender U niversity of 02:54:37 Christopher [facility] ELECTROENCEPHALOGRAM 2022-05-06 C[facility]ron [facility] [place] [facility] ty of 00:00:00 Shailesh [facility] BASIC METABOLIC PANEL (NA, K, 2022-05-05 Lexie Dunn [facility] of CL, CO2, GLUCOSE, BUN, 07:57:00 [facility] ical CREATININE, CA) Branch CBC WITH DIFF 2022-05-05 [facility] of 07:57:00 [facility] PROTHROMBIN TIME / INR 2022-05-05 [facility] ersity of 07:57:00 [facility] ACTIVATED PARTIAL THRMPLAS 2022-05-05 [facility] of DAVID 07:57:00 [facility] FIBRINOGEN 2022-05-05 [facility] of 07:57:00 [facility] EMERGENCY SERVICES AGREEMENTS 2022-05-04 Doctor Unassigned, University of AND AUTHORIZATIONS 05:01:00 [place] [facility] VITAMIN D, 25-[place] 2022-04-15 [place] of 16:53:00 [facility] MR THORACIC SPINE WO CONTRAST 2022-04-15 Soumya Chua Un iversity of 11:56:19 [facility] MR CERVICAL SPINE WO CONTRAST 2022-04-15 Soumya Chua Un iversity of 11:20:00 [facility] BASIC METABOLIC PANEL (NA, K, 2022-04-15 Charmaine Morataya Un iversity of CL, CO2, GLUCOSE, BUN, 10:36:00 [facility] ical CREATININE, CA) Branch TEST, URINE 2022-04-15 [facility] of 04:39:00 [facility] URINE DRUG (IMMUNOASSAY) - 2022-04-15 [facility] COMPREHENSIVE DRUG SCREEN 04:39:00 [facility] URINALYSIS 2022-04-15 Juju [facility] of 04:39:00 [facility] TRANSTHORACIC ECHO (TTE) 2022-04-[address] [facility] ity of COMPLETE W/ CONTRAST 16:37:03 [facility] KEPPRA (LEVETIRACETAM) 2022-04-14 Harshil [facility] y of 15:30:00 [facility] MAGNESIUM 2022-04-14 Harshil [facility] of 10:03:00 [facility] BASIC METABOLIC PANEL (NA, K, 2022-04-14 John Chuaena Un iversity of CL, CO2, GLUCOSE, BUN, 10:03:00 [place] [facility] ical CREATININE, [place]) Branch MR LUMBAR SPINE WO CONTRAST 2022-04-14 Harshil [facility] ersity of 02:48:12 [facility] MR STROKE BRAIN WO CONTRAST 2022-04-14 Harshil [facility] ersity of 02:29:[address] [facility] [address] STROKE ANGIOGRAM HEAD 2022-04-[address] [facility] ersity of 18:40:[address] [facility] [address] STROKE ANGIOGRAM NECK 2022-04-[address] [facility] ersity of 18:40:[address] [facility] [address] STROKE HEAD WO CONTRAST 2022-04-13 Sapna Vargas Un iversity of 18:36:00 [facility] TROPONIN I 2022-04-13 Sapna Vargas [place] of 18:17:00 [facility] THYROID STIMULATING HORMONE 2022-04-13 Harshil [facility] ersity of 18:17:00 [facility] BASIC METABOLIC PANEL (NA, K, 2022-04-13 Sapna Vargas [place] of CL, CO2, GLUCOSE, BUN, 18:17:00 [place] [facility] ical CREATININE, [place]) Branch LIPID PANEL ([id number])(TOTAL 2022-04-13 [facility] of CHOLESTEROL, TRIGLYCERIDES, 18:17:00 [facility]) Branch CBC WITHOUT DIFF 2022-04-13 Sapna Vargas [place] f 18:17:00 [facility] GLYCOSYLATED HEMOGLOBIN (A1C) 2022-04-13 oSumya Chua Un iversity of 18:17:00 [facility] PROTHROMBIN TIME / INR 2022-04-13 Sapna Vargas [facility] sity of 18:17:00 [facility] ACTIVATED PARTIAL THRMPLAS 2022-04-13 Sapna Vargas iversity of DAVID 18:17:00 [facility] COVID-19 (ID NOW RAPID 2022-04-13 Sapna Vargas [facility] sity of TESTING) 18:17:00 [facility] LAB ONLY COVID INTERPRETATION 2022-04-13 Sapna Vargas [place] of 18:17:00 [facility] HB ECG ROUTINE & RHYTHM STRIP 2022-04-13 Sapna Vargas [facility] 18:15:49 [facility] CONSENT/REFUSAL FOR DIAGNOSIS 2022-04-13 Doctor Unassigned, [facility] AND TREATMENT 18:05:14 [place] [facility] HOSPITAL ADMISSION 2022-04-13 Doctor Unassigned, University of 05:01:00 [place] [facility] SARS-COV-2 COVID-19 VACCINE 2022-02-19 Doctor Unassigned, U niversity of 12 YRS+,0.3ML,IM (PFIZER - 15:21:12 [place] [facility] URINE DRUG (IMMUNOASSAY) - 2021-11-23 [facility] COMPREHENSIVE DRUG SCREEN W/O 21:21[place]00 [place] [facility] CT HEAD WO CONTRAST 2021-11-23 [facility] 20:58:00 [facility] POCT TEST 2021-11-23 [facility] ty of 20:46:00 [facility] URINALYSIS 2021-11-23 [facility] o f 20:43:00 [facility] LIPASE 2021-11-23 [facility] o f 20:27:00 [facility] TROPONIN I 2021-11-23 [facility] o f 20:27:00 [facility] COMP. METABOLIC PANEL ([id number]) 2021-11-23 [facility] of 20:27:00 [facility] CBC WITH DIFF 2021-11-23 [facility] o f 20:27:00 [facility] POCT GLUCOSE (AUTOMATED) 2021-11-23 Doctor Unassigned, Univ ersity of 20:15:00 [place] [facility] SARS-COV-2 COVID-19 2021-05-24 Doctor Unassigned, Universit y of VACCINE,0.3ML,IM (PFIZER) 14:23:12 [place] [facility] SARS-COV-2 COVID-19 2021-05-03 Doctor Unassigned, Universit y of VACCINE,0.3ML,IM (PFIZER) 14:59:29 [place] [facility] EMERGENCY SERVICES AGREEMENTS 2021-04-16 Doctor Unassigned, [place] of AND AUTHORIZATIONS 05:01:00 [place] [facility] URINALYSIS 2021-03-17 [facility] of 03:09:00 [facility] XR CHEST 1 VW 2021-03-17 [facility] of 01:45:07 [facility] TROPONIN I 2021-03-17 [facility] of 01:35:00 [facility] COMP. METABOLIC PANEL ([id number]) 2021-03-17 Fabrice Chakraborty Un iversity of 01:35:00 [facility] CBC WITH DIFF 2021-03-17 [facility] 01:35[facility]00 [facility] [facility] N-TERMINAL PRO-BNP 2021-03-17 [facility] of 01:35:00 [facility] COVID-19 (ID NOW RAPID 2021-03-17 Brian Ray [facility] y of TESTING) 00:58:00 [facility] CONSENT/REFUSAL FOR DIAGNOSIS 2021-03-17 Doctor Unassigned, [facility] 00:32:59 [facility] COVID-19 (ID NOW RAPID 2021-02-19 Anali Patel [facility] y of TESTING) 17:04:[address] [facility] [address] ABDOMEN PELVIS W CONTRAST 2021-02-19 Anali Patel Uni versity of 16:41:18 [facility] LIPASE 2021-02-19 Anali Patel [place] of 15:58:00 [facility] COMP. METABOLIC PANEL (53929) 2021-02-19 Anali Patel Un iversity of 15:58:00 [facility] CBC WITH DIFF 2021-02-19 Anali Patel [place] of 15:58:00 [facility] URINALYSIS 2021-02-19 Anali Patel [place] of 15:58:00 [facility] NOTICE OF PRIVACY PRACTICES 2021-02-19 Doctor Unassjulee, [facility]iversity of 15:30:46 [facility] CONSENT/REFUSAL FOR DIAGNOSIS 2021-02-19 Doctor Unassigned, [facility] AND TREATMENT 15:30:30 [facility] Plan of Care Planned Activity Planned Date Details Comments Source Future Scheduled 2025-08-02 Lipid panel (procedure) [facility] 00:00:00 [code = 89465743] Medical Ce nter Future Scheduled 2022-07-[address] [facility] 00:00:00 (12+) [code = Medical Center DEPRESSION SCREENING (12+)] Future Scheduled 2022-06-21 COVID-19 VACCINE (4 - [facility]00 Booster for Pfizer Medical C enter series) [code = COVID-19 VACCINE (4 - Booster for Pfizer series)] Future Scheduled 2022-03-20 INFLUENZA VACCINE (#1) [facility]00 [code = INFLUENZA Medical Ce nter VACCINE (#1)] Future Scheduled 2022-01-14 SHINGLES VACCINES ([address] [facility] 00:00:00 2) [code = SHINGLES Medical Center VACCINES (1 of 2)] Future Scheduled 2013-12-[address] [facility] 00:00:00 0-64 YRS (2 - PCV) Medical C enter [code = PNEUMOCOCCAL VACCINE 0-64 YRS (2 - PCV)] Future Scheduled 1993-01-14 Screening for malignant [facility] 00:00:00 neoplasm of cervix Medical C enter (procedure) [code = 949933139] Future Scheduled 1991-01-14 DTAP/TDAP/TD VACCINES [facility] 00:00:00 (1 - Tdap) [code = Medical C enter DTAP/TDAP/TD VACCINES (1 - Tdap)] Future Scheduled 1990-01-14 HEPATITIS C SCREENING [facility] 00:00:00 [code = HEPATITIS C Medical Center SCREENING] Future Scheduled [address] [facility] 00:00:00 Counseling and Medical Cente r Screening (12+) [code = Tobacco Cessation Counseling and Screening (12+)] Future Scheduled 1972 Screening for malignant [facility] 00:00:00 neoplasm of breast Medical C enter (procedure) [code = 915596199] Future Scheduled 1972 CT Colonography (combo) [facility] Test 00:00:00 [code = CT Colonography [facility] (combo)] Future Scheduled 1972 Screening for malignant [facility] 00:00:00 neoplasm of colon Medical Ce nter (procedure) [code = 873513001] Future Scheduled 1972 Screening for malignant [facility] 00:00:00 neoplasm of colon Medical Ce nter (procedure) [code = 002787223] Future Scheduled 1972 Screening for malignant [facility] 00:00:00 neoplasm of colon Medical Ce nter (procedure) [code = 121071744] Future Scheduled 1972 Screening for malignant [facility] 00:00:00 neoplasm of colon Medical Ce nter (procedure) [code = 611951870] Future Scheduled 1972 Sigmoidoscopy [code = [facility] Go[facility] Plan of Care Note [code = 16497-8] Goal Plan of Care Note [code = 52984-3] Goal Plan of Care Note [code = 63218-2] Goal Plan of Care Note [code = 58881-6] Goal Plan of Care Note [code = 10537-7] Goal Plan of Care Note [code = 17144-5] Goal Plan of Care Note [code = 06722-5] Goal Plan of Care Note [code = 46990-5] Goal Plan of Care Note [code = 72253-7] Goal Plan of Care Note [code = 05823-4] Goal Plan of Care Note [code = 73323-3] Goal Plan of Care Note [code = 81890-5] Goal Plan of Care Note [code = 86600-7] Goal Plan of Care Note [code = 37454-2] Goal Plan of Care Note [code = 42407-5] Goal Plan of Care Note [code = 97422-8] Goal Plan of Care Note [code = 35244-9] Goal Plan of Care Note [code = 62637-2] Goal Plan of Care Note [code = 69866-7] Goal Plan of Care Note [code = 19971-8] Goal Plan of Care Note [code = 58092-3] Goal Plan of Care Note [code = 09218-3] Goal Plan of Care Note [code = 46130-1] Goal Plan of Care Note [code = 55355-0] Goal Plan of Care Note [code = 09704-2] Goal Plan of Care Note [code = 40696-5] Goal Plan of Care Note [code = 94523-6] Goal Plan of Care Note [code = 59292-2] Goal Plan of Care Note [code = 26350-3] Goal Plan of Care Note [code = 64751-0] Goal Plan of Care Note [code = 85245-6] Goal Plan of Care Note [code = 14903-9] Goal Plan of Care Note [code = 83943-6] Goal Plan of Care Note [code = 83638-1] Goal Plan of Care Note [code = 61326-7] Encounters Start End Encounter Admission Attending Care Care Encounter Source Date/Time Date/Time Type Type Clinicians Facility Department ID 2021-05-20 Emergency [facility] [id number] Univers 18:48:04 ity of [facility] 2021-05-20 Emergency [facility] [id number] [facility]-02 2022-08-03 Hospital Reji Halima Hummel [facility] [id number] 17:30:[facility] 14:29:[address] [facility], [facility] 2022-08-02 2022-08-03 Outpatient ER CORRY, [facility] Neurology [id number] SLE 17:30:00 14:29:00 [facility] 2022-08-03 2022-08-03 Orders [facility] [id number] 00:00:00 00:00:00 Only [facility] 2022-08-02 2022-08-02 Travel [facility] [id number] [facility] 00:[facility] 00:00:00 [facility] 2022-07-31 2022-08-01 Inpatient X LLOYDBENJAMÍN [facility] [id number] Univers 11:42:00 21:48:00 LORENZA ity [facility] 2022-07-31 2022-08-01 Hospital Sav Rondon [facility] 1.2.840.1 14 [id number] Univers 11:42:00 21:48:00 [facility] [id number] [place] [address] [address] 2022-08-01 2022-08-01 Transition BLAYNE Nicole 1.2.840.114 [id number] Univers 00:00:00 00:00:00 of Care Maria Teresa MACIASY 350.1.13.10 ity [facility] [place] [id number] [facility] [address] 2022-07-28 2022-07-28 Outpatient [facility] [id number] Adria 14:41:38 14:41:38 [address] [place] 2022-07-28 2022-07-28 Outpatient [id number] 3d [id number] 00:00:00 00:00:00 Visit [id number] -[id number] [id number] 2022-07-24 2022-07-24 Outpatient [facility] [id number] Adria 13:24:40 13:24:40 [address] [place] 2022-05-23 2022-05-23 Outpatient [facility] [id number] 022 Adria 14:51:01 14:51:01 [address] [place] 2022-05-23 2022-05-23 Outpatient [id number]- [id number] f9 uxeb12-x 00:00:00 00:00:00 Visit [id number]-4bb7-b -n63d-[id number] [id number] 7850ee 2022-05-04 2022-05-08 Outpatient X CHANTEL MATTHEWS [facility] S [id number] Univers 20:22:00 14:44:00 CHANTEL MATTHEWS itshawn [facility] 2022-05-04 2022-05-08 Emergency BrinerBrandyn 1.2.840.1 14 [id number] Univers 20:22:00 14:44:00 Chantel Matthews 350.1.13 .10 ity of [facility] 4.2.7.2.686 Javier as [id number] [facility] [address] 2022-04-13 2022-04-15 Inpatient X CONRAD ALKEVIN BERNARDINO [id number] Univers 13:06:00 15:00:00 SELINA ity [facility] 2022-04-13 2022-04-15 Hospital Sapna Vargas 1.2.84 0.114 [id number] Univers 13:06:00 15:00:00 Encounter Glory Esteves 350. 1.13.10 ity of [facility] 4.2.7.2.686 [place] [id number] [facility] [address] 2022-02-19 2022-02-19 Imm/Inj Vaccine, [facility] [place] 1.2.840.114 [id number] Univers 10:20:00 10:30:00 Visit Jose Frederick 350.1.13.10 ity of [facility] 4.2.7.2.686 [facility] [phone] [facility] [address] 2022-02-19 2022-02-19 Outpatient R JOSE FREDERICK [facility] [id number] Univers 10:20:00 10:20:00 ity of [facility] 2021-11-23 2021-11-23 Emergency X ESTEFANY [facility] ERT [id number] Univers 15:07:00 17:03:00 NICHELLE ity [facility] 2021-11-23 2021-11-23 Emergency Sav Rondon [facility] 1.2.840. 114 [id number] Univers 15:07:00 17:03:00 Nichelle Allison [place] 350.1.13. 10 ity of [place] 4.2.7.2.686 [facility] [id number] [facility] [address] 2021-11-21 2021-11-21 Outpatient R [facility] [id number] Univers 09:40:00 09:40:00 ity of [facility] 2021-05-24 2021-05-24 Outpatient R JOSE FREDERICK [facility] [id number] Univers 09:30:00 09:30:00 ity of [facility] 2021-05-24 2021-05-24 Imm/Inj Vaccine, [facility] [place] 1.2.840.114 [id number] Univers 08:47:51 08:57:51 Visit Jose Frederick 350.1.13.10 it[place] [facility] [place] [facility] [id number] [facility] [address] 2021-05-03 2021-05-03 Outpatient R JOSE FREDERICK [facility] [id number] Univers 09:40:00 09:59:35 ity of [facility] 2021-05-03 2021-05-03 Imm/Inj Vaccine, [facility] [place] 1.2.840.114 [id number] Univers 09:17:43 09:59:35 Visit Jose Frederick 350.1.13.10 [place] [facility] [phone] [facility] [address] 2021-04-16 2021-04-16 Orders Doctor EWELINA 1.2.840.114 [id number] Univers 00:00:00 00:00:00 Only Unassigned, HO[place] 350.1.13.10 ity of [place] [facility] 4.2.7.2.686 Javier as [phone] [facility] [address] 2021-03-17 2021-03-17 Telephone EWELINA Nava 1.2.678.599 [id number] Univers 00:00:00 00:00:00 Aneatrice HOSEA 350.1.13.10 ity of [facility] 4.2.7.2.686 Javier as [id number] [facility] [address] 2021-03-16 2021-03-16 Emergency Palmer [facility] 1.2.840.114 [id number] Univers 20:08:00 23:24:00 Shinta Julio Cesar 350.1.13.10 i ty of [place] [id number] [facility] [address] 2021-03-14 2021-03-14 Urgent Lydia Desouza [facility] 1.2.840.114 [id number] Univers 18:59:34 20:19:13 Care Unknown, Attending Health 350.1.13.10 ity of [place] 4.2.7.2.686 Javier as Prem?Blea [id number] Ok dical kney [address] Medical Office [facility] 2021-03-14 2021-03-14 Outpatient R UNKNOWN, [facility] [id number] Univers 19:00:00 19:00:00 ATTENDING ity [facility] 2021-02-19 2021-02-19 [facility] 1.2.077.387 [id number] Univers 10:49:00 14:48:00 Anali Harrell 350.1.13.10 i ty [place] [id number] [address] 2019-03-09 2019-03-09 [facility] 1.2.840.114 [id number] 00:00:00 00:00:00 Yehuda Harrell 350.1.13.10 [place] 4.2.7.2.686 Professio [id number] [address] 2019-03-09 2019-03-09 [facility]kimberley [facility] 1.2.840.114 [id number] Univers 00:00:00 00:00:00 Yehuda Harrell 350.1.13.10 ity [facility] [place] [phone] [address] Results Test Description Test Time Test Comments Results Result Comments Source R 2022-08-05 13:17:22 Test Item Value Reference Range Interpretation Comme [facility] RPR SCREEN ([employer]) (test code = 420) Nonreactive Nonreactive HEMOGLOBIN [id number] 10:39:49 Test Item Value Reference Range Interpretation Comments HEMOGLOBIN A1C 5.8 % See_Comment H [Automated m essage] ELECTROPHORESIS ([employer]) The system which (test code = 3811) generated this result transmitted ref erence range: <=5.6%. The reference range was not used to int erpret this result as normal/abnormal . "The A1c is measured using a NGSP-certified method. HbA1c value equal to or greater than 6.5% as thediagnosis cutoff for diabetes. An HbA1c value of 5.7- 6.4% indicates increased risk for diabetes (prediabetes)."Watch Engineer ID - ADM VITAMIN [id number] 22:48:27 Test Item Value Reference Range Interpretation Comments VITAMIN B12 (BEAKER) (test code = 227 pg/mL 213-816 774) Watch Engineer ID - MARCOTSH/FREE T4 IF [id number] 22:08:28 Test Item Value Reference Range Interpretation Comments THYROID STIMULATING HORMONE 3.309 uIU/mL 0.350-4.940 (BEAKER) (test code = 772) Watch Engineer ID - JSHIV-1 ANTIGEN WITH HIV-1/2 [id number] 22:08:28 Test Item Value Reference Range Interpretation Comments HIV-1 ANTIGEN WITH HIV 1\\T\\2 Nonreactive Nonreactive ANTIBODY (2) (BEAKER) (test code = 2586) Watch Engineer ID - JSC-REACTIVE [id number] 21:49:44 Test Item Value Reference Range Interpretation Comments C-REACTIVE PROTEIN (BEAKER) (test 0.35 mg/dL 0.00-0.50 code = 676) Watch Engineer ID - JSCOMPREHENSIVE METABOLIC [id number] 21:49:43 Test Item Value Reference Range Interpretation Comments TOTAL PROTEIN 7.1 gm/dL 6.0-8.3 (BEAKER) (test code = 770) ALBUMIN (BEAKER) 4.2 g/dL 3.5-5.0 (test code = 1145) ALKALINE 74 U/L 40-150 PHOSPHATASE (BEAKER) (test code = 346) BILIRUBIN TOTAL 0.3 mg/dL 0.2-1.2 (BEAKER) (test code = 377) SODIUM (BEAKER) 139 meq/L 136-145 (test code = 381) POTASSIUM (BEAKER) 3.4 meq/L 3.5-5.1 L (test code = 379) CHLORIDE (BEAKER) 102 meq/L 98-107 (test code = 382) CO2 (BEAKER) (test 26 meq/L 22-29 code = 355) BLOOD UREA 14 mg/dL 7-21 NITROGEN (BEAKER) (test code = 354) CREATININE 0.91 mg/dL 0.57-1.25 (BEAKER) (test code = 358) GLUCOSE RANDOM 134 mg/dL 70-105 H (BEAKER) (test code = 652) CALCIUM (BEAKER) 8.8 mg/dL 8.4-10.2 (test code = 697) AST (SGOT) 15 U/L 5-34 (BEAKER) (test code = 353) ALT (SGPT) 15 U/L 6-55 (BEAKER) (test code = 347) EGFR (BEAKER) 77 Interpretatio n of eGFR (test code = 1092) mL/min/1.[address] age Description sq m Result G1 Komal l or high >=90 G2 Mildly decreased 60-89 G3a Mildl y to moderately 45-5 9 G3b Moderately to s everely 30-44 G4 Severl y decreased 15-29 G5 Kidney failure <15Reported eGF R is based on the CKD-EPI 2020 equation that d oes not use a race coefficientEsti mated GFR is not as accur ate as Creatinine Graciela quezada in predicting glom erular filtration rate . Estimated GFR is not appl icable for dialysis patien ts Watch Engineer ID - JSLIPID [id number] 21:49:43 Test Item Value Reference Range Interpretation Comments TRIGLYCERIDES (BEAKER) (test code = 161 mg/dL 540) CHOLESTEROL (BEAKER) (test code = 149 mg/dL 631) HDL CHOLESTEROL (BEAKER) (test code 43 mg/dL = 976) LDL CHOLESTEROL CALCULATED (BEAKER) 74 mg/dL (test code = 633) Triglyceride Reference Range: Low Risk <150 Borderline 150-199 High Risk 200- 499 Very High Risk >=500Cholesterol Reference Range: Low Risk <200 Borderline 200-239 High Risk >240HDL Cholesterol Reference Range: Low Risk >=60 High Risk <40LDL Cholesterol Reference Range: Optimal <100 Near Optimal 100-129 Borderline 130-159 High 160-189 Very High >=190 Watch Engineer ID - JSCBC W/PLT COUNT & AUTO [id number] 21:34:03 Test Item Value Reference Range Interpretation Comments WHITE BLOOD CELL COUNT (BEAKER) 8.4 K/ L 3.5-10.5 (test code = 775) RED BLOOD CELL COUNT (BEAKER) 4.62 M/ L 3.93-5.22 (test code = 761) HEMOGLOBIN (BEAKER) (test code = 11.9 GM/DL 11.2-15.7 410) HEMATOCRIT (BEAKER) (test code = 39.3 % 34.1-44.9 411) MEAN CORPUSCULAR VOLUME (BEAKER) 85 fL 79-95 (test code = 753) MEAN CORPUSCULAR HEMOGLOBIN 25.8 pg 25.6-32.2 (BEAKER) (test code = 751) MEAN CORPUSCULAR HEMOGLOBIN CONC 30.3 GM/DL 32.2-35.5 L (BEAKER) (test code = 752) RED CELL DISTRIBUTION WIDTH 17.0 % 11.7-14.4 H (BEAKER) (test code = 412) PLATELET COUNT (BEAKER) (test 388 K/CU MM 150-450 code = 756) MEAN PLATELET VOLUME (BEAKER) 8.3 fL 9.4-12.3 L (test code = 754) NUCLEATED RED BLOOD CELLS 0 /100 WBC 0-0 (BEAKER) (test code = 413) NEUTROPHILS RELATIVE PERCENT 57 % (BEAKER) (test code = 429) LYMPHOCYTES RELATIVE PERCENT 34 % (BEAKER) (test code = 430) MONOCYTES RELATIVE PERCENT 8 % (BEAKER) (test code = 431) EOSINOPHILS RELATIVE PERCENT 1 % (BEAKER) (test code = 432) BASOPHILS RELATIVE PERCENT 1 % (BEAKER) (test code = 437) NEUTROPHILS ABSOLUTE COUNT 4.74 K/ L 1.56-6.13 (BEAKER) (test code = 670) LYMPHOCYTES ABSOLUTE COUNT 2.85 K/ L 1.18-3.74 (BEAKER) (test code = 414) MONOCYTES ABSOLUTE COUNT (BEAKER) 0.63 K/ L 0.24-0.36 H (test code = 415) EOSINOPHILS ABSOLUTE COUNT 0.06 K/ L 0.04-0.36 (BEAKER) (test code = 416) BASOPHILS ABSOLUTE COUNT (BEAKER) 0.06 K/ L 0.01-0.08 (test code = 417) IMMATURE GRANULOCYTES-RELATIVE 0.50 % 0.00-1.00 PERCENT (BEAKER) (test code = 2801) Transthoracic echo (TTE)2022-08-01 22:30:27 Test Item Value Reference Range Interpretation Comments Height (test code = in 6369183868) Weight (test code = lbs 3940931124) Systolic BP (test code = mmHg 7963085708) Diastolic BP (test code mmHg = 4507602854) Heart Rate (test code = bpm 4805545897) BSA (test code = 2.00 m2 7192753282) Ao root diam (test code 3.20 cm = 2433693588) Aortic root (test code = 3.2 cm 1518692430) Ao root annulus (test 3.2 cm code = 1701454358) LVOT diameter (test code 1.99 cm = 8312458913) LVOT area (test code = 3.10 cm2 8694219339) LVIDD (test code = 5.10 cm 3117164458) Left Ventricular End 123.0 mL Diastolic Volume by Teichholz Method (test code = 2701992) IVS (test code = 1.34 cm 0221361019) Interventricular Septum 1.34 cm Diastolic Thickness by 2D (test code = 6002384) LVPWD (test code = 1.34 cm 3994572808) PW (test code = 1.34 cm 0.6-1.7 5465032753) EF(Teich) (test code = 41.80 % 6469687323) LVIDS (test code = 4.00 cm 9478222361) Left Ventricular End 71.5 mL Systolic Volume by Teichholz Method (test code = 4956263) FS (test code = 21 % 8760803789) EF - 2D (test code = 41.80 % 84551894) LA size (test code = 4.6 cm 2024828175) Pulmonic Regurgitant End 119.4 cm/s Max Velocity (test code = 7986555900) LAV(MOD-sp4) (test code 95.00 mL = 0518300708) E wave decelartion time 0.15 s (test code = 2749645937) MV stenosis pressure 1/2 45.6 ms time (test code = 5978849695) MV Peak A Evette (test code 123.8 cm/s = 0511554727) MV Peak E Evette (test code 109.7 cm/s = 5420744895) E/A ratio (test code = ratio 4138930936) MR max PG (test code = 87.20 mm[Hg] 9790931554) MR max evette (test code = 466.90 cm/s 7083823221) Mr max evette (test code = 466.9 m/s 0759446816) MV Prop V (test code = 51.00 cm/s 2634637189) MV E/e' septal (test 8.1 cm/s code = 5078482307) Tapse (test code = 2.21 cm 8984688149) LVOT stroke volume (test 49.80 cm3 code = 2362397044) LVOT peak evette (test code 89.1 cm/s = 3715163557) LVOT mn grad (test code mmHg = 5281759294) AV LVOT peak gradient mmHg (test code = 8036200627) LVOT peak VTI (test code 16.0 cm = 7911254234) LV V1 mean (test code = 64.30 cm/s 8403032789) Aortic valve mean 133.8 cm/s velocity (test code = 2113860866) Ao peak evette (test code = 175.3 cm/s 6004096520) Ao VTI (test code = 32.2 cm 7656217844) AV area by cont VTI 1.6 cm2 (test code = 1281127034) AV area peak evette (test 1.6 cm2 code = 8269137660) Ao max PG (test code = 12.30 mm[Hg] 0354762010) AV peak gradient (test mmHg code = 2238144673) AV valve area (test code 1.55 cm2 = 8812099999) AV mean gradient (test mmHg code = 3459136158) AV regurgitation 358.5 ms pressure 1/2 time (test code = 1362222182) AI dec slope (test code 364.20 cm/s2 = 2605362520) AI max evette (test code = 445.80 cm/s 3692187491) AI max PG (test code = 79.50 mm[Hg] 5911085323) Radiology Study observation (narrative) (test code = 82612-7) LYNDSAY (test code = LYNDSAY) ?Left?Ventricle: Left ventricle is mildly dilated. Normal wall thickness. Mild global hypokinesis present. Mildly reduced systolic function with a visually estimated EF of 40 - 50%. There is pseudonormal diastolic dysfunction. ?Right?Ventricle: Right ventricle size is normal. Normal systolic function. ?Tricuspid?Valve: Insufficient tricuspid regurgitation jet to estimate RVSP. RA pressure is 0-5 mmHg. ?Left?Atrium: Left atrium is mildly dilated. ?Aortic?Valve: Mild transvalvular regurgitation. Left VentricleLeft ventricle is mildly dilated. Normal wall thickness. Mild global hypokinesis present. Mildly reduced systolic function with a visually estimated EF of 40 - 50%. There is pseudonormal diastolic dysfunction.Right VentricleRight ventricle size is normal. Normal systolic function.Left AtriumLeft atrium is mildly dilated.Right AtriumRight atrium size is normal.IVC/SVCIVC diameter is less than or equal to 21 mm and decreases greater than 50% during inspiration; therefore the estimated right atrial pressure is normal (~0-5 mmHg).Mitral ValveMildly thickened leaflets. Mildly calcified leaflets. Trace transvalvular regurgitation.Tricusp id ValveTricuspid valve structure is normal. Insufficient tricuspid regurgitation jet to estimate RVSP.Trace transvalvular regurgitation. RA pressure is 0-5 mmHg.Aortic ValveNot well visualized. Mild transvalvular regurgitation.Pulmoni c ValveNot well visualized. Trace transvalvular regurgitation.Ascendi ng AortaNormal sized ascending aorta and aortic root.PericardiumNo pericardial effusion.Study DetailsStudy quality was adequate. A complete echocardiogram was performed using 2D, color flow Doppler and spectral Doppler. 5 mL of Lumason ultrasound enhancing agent used. [facility] (AUT[facility]ATED)2022-08-01 10:43:32 Test Item Value Reference Range Interpretation Comments POCT GLU (test code = 8126513639) 148 mg/dL 70-110 H Lab Interpretation (test code = Abnormal 27791-2) [facility] HospitalACTIVATED PARTIAL THRMPLAS [id number] 18:39:45 Test Item Value Reference Range Interpretation Comments APTT Patient (test See_Comment [Automat ed code = 3173-2) message] The system which generated this result transmitted reference range : 23 - 38 Seconds . The reference range was not used to interpr et this result as normal/abnormal . LYNDSAY (test code = LYNDSAY) [facility] patient population mean normal value for aPTT is 30 seconds. Lab Interpretation Normal (test code = 24750-5) [facility] HospitalPROTHROMBIN TIME / [id number] 18:37:42 Test Item Value Reference Range Interpretation Comments PROTIME PATIENT (test See_Comment [Auto mated message] code = 5964-2) The system wh ich generated this result transmitted ref erence range: 12.0 - 1 4.7 Seconds. The re ference range was not u sed to interpret this result as normal/abnor mal. INR (test code = 6301-6) Nor mal INR <1.1; Warfarin Therap eutic range 2.0 to 3. 0 or 2.5 to 3.5, dep ending upon the indica tions. Lab Interpretation (test Normal code = 01013-2) [facility] HospitalTROPONIN [id number] 18:32:01 Test Item Value Reference Interpretation Comments Range TROPONIN I (test 0.019 ng/mL See_Comment [Automated code = 8057984835) message] The system which generated this result [...] biotin. Lab Interpretation Normal (test code = 93860-6) [facility] HospitalN-TERMINAL [id number] 18:29:01 Test Item Value Reference Range Interpretation Comments NT-proBNP (test code 2770 pg/mL See_Comment H [Autom ated = 1023011200) message] The system which generated this result transmitted reference range : <=125. The reference range was not used to interpret this result as normal/abnormal . LYNDSAY (test code = LYNDSAY) Biotin has been reported to cause a negative bias, interpret results relative to patient's use of biotin. Lab Interpretation Abnormal (test code = 11784-2) [facility]. METABOLIC PANEL (90086)2022-07-31 18:21:42 Test Item Value Reference Range Interpretation Comments NA (test code = 136 mmol/L 135-145 [id number]) K (test code = 4.6 mmol/L 3.5-5.0 [id number]) CL (test code = 104 mmol/L 98-108 [id number]) CO2 TOTAL (test code = 26 mmol/L 23-31 [id number]) AGAP (test code = 2-16 5960349088) BUN (test code = 9 mg/dL 7-23 5491731100) GLUCOSE (test code = 97 mg/dL 70-110 0319421798) CREATININE (test code = 0.64 mg/dL 0.50-1.04 4962947137) TOTAL BILI (test code = 0.5 mg/dL 0.1-1.2 3382431148) CALCIUM (test code = 8.2 mg/dL 8.6-10.6 L 6242791806) T PROTEIN (test code = 6.5 g/dL 6.3-8.2 7104596791) ALBUMIN (test code = 3.9 g/dL 3.5-5.0 3357267760) ALK PHOS (test code = 93 U/L 34-122 7082367123) ALTv (test code = 18 U/L 5-35 1742-6) AST(SGOT) (test code = 19 U/L 13-40 9744485730) eGFR (test code = mL/min/1.73m2 8113991863) LYNDSAY (test code = LYNDSAY) Association of [...] tests). Lab Interpretation Abnormal (test code = 47015-4) [facility]21:01 Test Item Value Reference Range Interpretation Comments LIPASE (test code = 4232519367) 54 U/L 0-220 Lab Interpretation (test code = Normal 80125-2) [facility] HospitalCB WITH [id number] 18:07:00 Test Item Value Reference Range Interpretation Comments WBC (test code = See_Comment [Automated 5090-2) message] The sy stem which [...] g/dL 11.6-15.0 718-7) HCT (test code = 39.8 % 35.7-45.2 4544-3) MCV (test code = 86.7 fL 80.6-95.5 787-2) MCH (test code = 26.6 pg 25.9-32.8 785-6) MCHC (test code = 30.7 g/dL 31.6-35.1 L 786-4) RDW-SD (test code = 53.1 fL 39.0-49.9 H 56874-3) RDW-CV (test code = 17.0 % 12.0-15.5 H 788-0) PLT (test code = See_Comment H [Automated 777-3) message] The sy stem which generated this result transmitted reference range : 166 - 358 10*3/ ?L. The reference r zoe was not used to interpret this result as normal/abnormal . MPV (test code = 8.2 fL 9.5-12.9 L 42024-2) NRBC/100 WBC (test See_Comment [Automat ed code = 4072364551) message] The system which generated this result transmitted reference range : 0.0 - 10.0 /100 WBCs. The refer ence range was not u sed to interpret th is result as normal/abnormal . NRBC x10^3 (test code See_Comment [Auto mated = 7847954563) message] The s ystem which generated this result transmitted reference range : 10*3/?L. The reference range was not used to interpret this result as normal/abnormal . GRAN MAT (NEUT) % 64.0 % (test code = 770-8) IMM GRAN % (test code 0.40 % = 2309247356) LYMPH % (test code = 27.3 % 736-9) MONO % (test code = 6.5 % 5905-5) EOS % (test code = 1.1 % 713-8) BASO % (test code = 0.7 % 706-2) GRAN MAT x10^3(ANC) 5.46 10*3/uL 1.88-7.09 (test code = 6903373254) IMM GRAN x10^3 (test 0.03 10*3/uL 0.00-0.06 code = 0418634881) LYMPH x10^3 (test code 2.32 10*3/uL 1.32-3.29 = 731-0) MONO x10^3 (test code 0.55 10*3/uL 0.33-0.92 = 742-7) EOS x10^3 (test code = 0.09 10*3/uL 0.03-0.39 711-2) BASO x10^3 (test code 0.06 10*3/uL 0.01-0.07 = 704-7) Lab Interpretation Abnormal (test code = 27191-5) [facility] METABOLIC PANEL (NA, K, CL, CO2, GLUCOSE, BUN, CREATININE, CA)2022-05-08 06:37:01 Test Item Value Reference Range Interpretation Comments NA (test code = 137 mmol/L 135-145 7371635093) K (test code = 3.8 mmol/L 3.5-5 4708278314) CL (test code = 103 mmol/L 98-108 9886472016) CO2 TOTAL (test code = 24 mmol/L 23-31 1495487153) AGAP (test code = 2-16 0097479744) BUN (test code = 13 mg/dL 7-23 0220365847) GLUCOSE (test code = 90 mg/dL 70-110 3473362741) CREATININE (test code = 0.69 mg/dL 0.5-1.04 9308119237) CALCIUM (test code = 8.5 mg/dL 8.6-10.6 L 6694339236) eGFR (test code = mL/min/1.73m2 0331532149) LYNDSAY (test code = LYNDSAY) Association of [...] tests). Lab Interpretation Abnormal (test code = 53214-7) [facility] Test Item Value Reference Range Interpretation Comments MAGNESIUM (test code = 2117585260) 2.1 mg/dL 1.7-2.4 Lab Interpretation (test code = Normal 84933-9) [facility] HospitalPHOSPHORUS2022-10-20 06:37:01 Test Item Value Reference Range Interpretation Comments PHOSPHORUS (test code = 2457426535) 4.7 mg/dL 2.5-5 Lab Interpretation (test code = Normal 70832-5) [facility] WITH [id number] 06:11:54 Test Item Value Reference Range Interpretation [...] (test code = 51.0 fL 39-49.9 H 58175-0) RDW-CV (test code = 16.5 % 12-15.5 H 788-0) PLT (test code = See_Comment H [Automated 777-3) message] The sy stem which generated this result transmitted reference range : 166 - 358 10*3/ ?L. The reference r zoe was not used to interpret this result as normal/abnormal . MPV (test code = 8.3 fL 9.5-12.9 L 16128-1) NRBC/100 WBC (test See_Comment [Automat ed code = 8784748761) message] The system which generated this result transmitted reference range : 0.0 - 10.0 /100 WBCs. The refer ence range was not u sed to interpret th is result as normal/abnormal . NRBC x10^3 (test code See_Comment [Auto mated = 4743037974) message] The s ystem which generated this result transmitted reference range : 10*3/?L. The reference range was not used to interpret this result as normal/abnormal . GRAN MAT (NEUT) % 64.5 % (test code = 770-8) IMM GRAN % (test code 0.50 % = 1546766887) LYMPH % (test code = 27.1 % 736-9) MONO % (test code = 6.6 % 5905-5) EOS % (test code = 0.6 % 713-8) BASO % (test code = 0.7 % 706-2) GRAN MAT x10^3(ANC) 5.28 10*3/uL 1.88-7.09 (test code = 0523053985) IMM GRAN x10^3 (test 0.04 10*3/uL 0-0.06 code = 0298238697) LYMPH x10^3 (test code 2.22 10*3/uL 1.32-3.29 = 731-0) MONO x10^3 (test code 0.54 10*3/uL 0.33-0.92 = 742-7) EOS x10^3 (test code = 0.05 10*3/uL 0.03-0.39 711-2) BASO x10^3 (test code 0.06 10*3/uL 0.01-0.07 = 704-7) Lab Interpretation Abnormal (test code = 16066-2) [facility] HospitalPOCT GLUCOSE (AUTOMATED)2022-05-07 01:18:10 Test Item Value Reference Range Interpretation Comments POCT GLU (test code = 6471274439) 120 mg/dL 70-110 H Lab Interpretation (test code = Abnormal 88784-3) [facility] HospitalType and Screen - ONCE [id number] 05:46:35 Test Item Value Reference Range Interpretation Comments ABO & RH (test code O POSITIVE Performe d at [facility] = 20) Laboratory Serv ices - GAL Blood Bank3 [facility] [address]Zngd Free: [phone] A No. [id number] IAT (test code = Negative Performed a t [facility] 1185) Laboratory [facility] Blood [facility] [address] [facility] [address]Pkgu Free: [phone] A No. [id number] [facility] (NA, K, CL, CO2, GLUCOSE, BUN, CREATININE, CA)2022-05-05 08:22:57 Test Item Value Reference Range Interpretation Comments NA (test code = 136 mmol/L 135-145 0289087319) K (test code = 4.9 mmol/L 3.5-5 7157420287) CL (test code = 108 mmol/L 98-108 5517676411) CO2 TOTAL (test code = 22 mmol/L 23-31 L 6615580584) AGAP (test code = 2-16 4945620863) BUN (test code = 12 mg/dL 7-23 4762397659) GLUCOSE (test code = 155 mg/dL 70-110 H 6347693274) CREATININE (test code = 0.63 mg/dL 0.5-1.04 3910417367) CALCIUM (test code = 8.4 mg/dL 8.6-10.6 L 9345888837) eGFR (test code = mL/min/1.73m2 2681626598) LYNDSAY (test code = LYNDSAY) Association of [...] tests). Lab Interpretation Abnormal (test code = 43293-6) [facility] HospitalPROTHROMBIN TIME / [id number] 08:22:37 Test Item Value Reference Range Interpretation Comments PROTIME PATIENT (test See_Comment [Auto mated message] code = 5964-2) The system [employer] generated this result transmitted ref erence range: 10.1 - 1 2.6 Seconds. The re ference range was not u sed to interpret this result as normal/abnor mal. INR (test code = 6301-6) Nor mal INR <1.1; Warfarin Therap eutic range 2.0 to 3. 0 or 2.5 to 3.5, dep ending upon the indica tions. Lab Interpretation (test Normal code = 11258-1) [facility] HospitalaPTT2022-10-17 08:22:37 Test Item Value Reference Range Interpretation Comments APTT Patient (test code = See_Comment [ Automated message] 3173-2) The system [email or web address] h generated this result transmitted ref erence range: 26 - 36 Seconds. The re ference range was not u sed to interpret this result as normal/abnor mal. Lab Interpretation (test Normal code = 83518-3) [facility] HospitalFIBRINOGEN2022-10-17 08:22:37 Test Item Value Reference Range Interpretation Comments Fibrinogen (test code = 4483739913) 294 mg/dL 167-453 Lab Interpretation (test code = Normal 98921-5) [facility] HospitalCB WITH [id number] 08:15:01 Test Item Value Reference Range Interpretation [...] (test code = 52.9 fL 39-49.9 H 73405-4) RDW-CV (test code = 16.8 % 12-15.5 H 788-0) PLT (test code = See_Comment H [Automated 777-3) message] The sy stem which generated this result transmitted reference range : 166 - 358 10*3/ ?L. The reference r zoe was not used to interpret this result as normal/abnormal . MPV (test code = 8.3 fL 9.5-12.9 L 06871-2) NRBC/100 WBC (test See_Comment [Automat ed code = 0979629453) message] The system which generated this result transmitted reference range : 0.0 - 10.0 /100 WBCs. The refer ence range was not u sed to interpret th is result as normal/abnormal . NRBC x10^3 (test code See_Comment [Auto mated = 4503204605) message] The s ystem which generated this result transmitted reference range : 10*3/?L. The reference range was not used to interpret this result as normal/abnormal . GRAN MAT (NEUT) % 86.4 % (test code = 770-8) IMM GRAN % (test code 0.40 % = 7415038130) LYMPH % (test code = 11.7 % 736-9) MONO % (test code = 1.1 % 5905-5) EOS % (test code = 0.0 % 713-8) BASO % (test code = 0.4 % 706-2) GRAN MAT x10^3(ANC) 6.36 10*3/uL 1.88-7.09 (test code = 8733788353) IMM GRAN x10^3 (test 0.03 10*3/uL 0-0.06 code = 4991476821) LYMPH x10^3 (test code 0.86 10*3/uL 1.32-3.29 L = 731-0) MONO x10^3 (test code 0.08 10*3/uL 0.33-0.92 L = 742-7) EOS x10^3 (test code = 0.03-0.39 L 711-2) BASO x10^3 (test code 0.03 10*3/uL 0.01-0.07 = 704-7) Lab Interpretation Abnormal (test code = 82676-8) [facility] HospitalVITAMIN D, [id number] 20:14:03 Test Item Value Reference Range Interpretation Comments VIT D 25OH (test code = 22 ng/mL 25-80 L 15241-7) LYNDSAY (test code = LYNDSAY) Deficiency: <20 ng/mLInsufficiency: 20-24 ng/mLOptimal: 25-80 ng/mL Lab Interpretation (test Abnormal code = 06317-9) [facility] HospitalBASI METABOLIC PANEL (NA, K, CL, CO2, GLUCOSE, BUN, CREATININE, CA)2022-04-15 11:27:57 Test Item Value Reference Range Interpretation Comments NA (test code = 138 mmol/L 135-145 3122191311) K (test code = 3.9 mmol/L 3.5-5 1467049735) CL (test code = 106 mmol/L 98-108 1042710580) CO2 TOTAL (test code = 23 mmol/L 23-31 9005149117) AGAP (test code = 2-16 8662222057) BUN (test code = 10 mg/dL 7-23 2097756405) GLUCOSE (test code = 91 mg/dL 70-110 9389089771) CREATININE (test code = 0.65 mg/dL 0.5-1.04 2726928970) CALCIUM (test code = 8.1 mg/dL 8.6-10.6 L 5381938802) eGFR (test code = mL/min/1.73m2 1419419609) LYNDSAY (test code = LYNDSAY) Association of [...] tests). Lab Interpretation Abnormal (test code = 25825-1) [facility] HospitalSTROKE Protocol - Transthoracic echo (TTE) 2022-04-14 22:07:33 Test Item Value Reference Range Interpretation Comments Height (test code = in 2413745270) Weight (test code = lbs 6827859967) Systolic BP (test code = mmHg 4586409653) Diastolic BP (test code mmHg = 0806684772) Heart Rate (test code = bpm 3303981514) BSA (test code = 1.94 m2 5188250311) TASV (test code = 15.5 cm/s 1520886125) LVIDD (test code = 6.00 cm 5877223451) Left Ventricular End 183.0 mL Diastolic Volume by Teichholz Method (test code = 0429001) IVS (test code = 1.09 cm 9845772156) Interventricular Septum 1.09 cm Diastolic Thickness by 2D (test code = 5585445) LVPWD (test code = 0.94 cm 4637779976) PW (test code = 0.94 cm 0.6-1.1 5267940964) EF(Teich) (test code = 40.30 % 4117673788) LVIDS (test code = 4.80 cm 4972801485) Left Ventricular End 109.2 mL Systolic Volume by Teichholz Method (test code = 2547752) FS (test code = 20 % 7409507227) EF - 2D (test code = 40.30 % 45931828) LVOT diameter (test code 2.05 cm = 8824567643) LVOT area (test code = 3.30 cm2 3174536179) Ao root diam (test code 3.10 cm = 2490541857) Aortic root (test code = 3.1 cm 1594577034) Ao root annulus (test 3.1 cm code = 2050207975) LA size (test code = 4.2 cm 5485994573) LAV(MOD-sp4) (test code 64.90 mL = 3202030932) MV Peak A Evette (test code 115.7 cm/s = 3127736099) E wave decelartion time 0.15 s (test code = 9507833007) MV Peak E Evette (test code 106.2 cm/s = 7588200013) E/A ratio (test code = ratio 8606425477) LVOT stroke volume (test 48.30 cm3 code = 5567442602) LVOT peak evette (test code 78.4 cm/s = 9257931548) LVOT mn grad (test code mmHg = 0030769685) AV LVOT peak gradient mmHg (test code = 8641820849) LVOT peak VTI (test code 14.7 cm = 6603537153) LV V1 mean (test code = 51.40 cm/s 1920358270) Ao peak evette (test code = 154.7 cm/s 3176108804) AV area peak evette (test 1.7 cm2 code = 0329498332) Ao max PG (test code = 9.60 mm[Hg] 5933837538) AV peak gradient (test mmHg code = 0684762850) AV regurgitation 257.3 ms pressure 1/2 time (test code = 1454018984) AI dec slope (test code 498.10 cm/s2 = 6802521033) AI max evette (test code = 437.60 cm/s 5886447904) AI max PG (test code = 77.80 mm[Hg] 7560146474) Tapse (test code = 2.19 cm 5882909569) LA Volume Index (BP) 32.0 mL/m2 (test code = 0415708994) LA volume (BP) (test 62.1 mL code = 3010282904) LAV(MOD-sp2) (test code 52.70 mL = 8179468028) A4C EF (test code = 44.80 % 3722963119) EF(sp4-el) (test code = 45.20 % 8180060401) SV(MOD-sp4) (test code = 71.20 mL 7851714228) SV(sp4-el) (test code = 73.90 mL 2357024328) LV Diastolic Volume (BP) 146.3 mL (test code = 4469408076) A2C EF (test code = 52.00 % 0613978866) EF(MOD-bp) (test code = 46.70 % 7034866888) EF(sp2-el) (test code = 52.40 % 2573208016) LV Systolic Volume (BP) 77.9 mL (test code = 8531016504) SV(MOD-bp) (test code = 68.40 mL 2808968403) SV(MOD-sp2) (test code = 69.20 mL 0832427930) EF (test code = 3758000199) Left Ventricular Stroke 68.4 mL Volume by 2-D Biplane-MOD (test code = 6266971) Radiology Study observation (narrative) (test code = 35278-8) LYNDSAY (test code = LYNDSAY) ?Left?Ventricle: Left [...] agent used and saline contrast was performed. [facility] HospitalKEPPRA (LEVETIRACETAM)2022-04-14 16:48:36 Test Item Value Reference Range Interpretation Comments KEPPRA (test code = 12-46 L 6342269467) LYNDSAY (test code = LYNDSAY) Therapeutic range: 12-46 ?g/mL ? ?Toxic: Not well established.Test developed and characteristics determined by [facility] Laboratory Services. Lab Interpretation Abnormal (test code = 65315-7) [facility] (Na, K, Cl, CO2, Glucose, BUN, Creatinine, Ca)2022-04-14 10:50:11 Test Item Value Reference Range Interpretation Comments NA (test code = 136 mmol/L 135-145 9734550819) K (test code = 3.8 mmol/L 3.5-5 7460474538) CL (test code = 105 mmol/L 98-108 6515209320) CO2 TOTAL (test code = 25 mmol/L 23-31 6975033719) AGAP (test code = 2-16 6670703087) BUN (test code = 9 mg/dL 7-23 0342834373) GLUCOSE (test code = 101 mg/dL 70-110 1895822321) CREATININE (test code = 0.66 mg/dL 0.5-1.04 1495824159) CALCIUM (test code = 8.1 mg/dL 8.6-10.6 L 6475061185) eGFR (test code = mL/min/1.73m2 2771727696) LYNDSAY (test code = LYNDSAY) Association of [...] tests). Lab Interpretation Abnormal (test code = 81030-8) [facility] HospitalMagensium, [id number] 10:50:11 Test Item Value Reference Range Interpretation Comments MAGNESIUM (test code = 7718143513) 1.9 mg/dL 1.7-2.4 Lab Interpretation (test code = Normal 95754-5) [facility] HospitalThyroid Stimulating [id number] 22:21:44 Test Item Value Reference Range Interpretation Comments TSH (test code = See_Comment Biotin has been 9890415205) reported to cau se a negative bias, interpret resul ts relative to autumn garcia's use of biotin. [Automated mess age] The system [employer] generated this result transmitted ref erence range: 0.45 - 4 .70 mIU/L. The refe rence range was not u sed to interpret this result as normal/abnor mal. Lab Interpretation (test Normal code = 48216-5) [facility] HospitalGLYCOSYLATED HEMOGLOBIN (A1C)2022-04-13 21:53:43 Test Item Value Reference Range Interpretation Comments HGB A1C (test code = 5.8 % 4-5.7 H 4548-4) LYNDSAY (test code = LYNDSAY) Reference RangesNormal: <5.7%Prediabetes: 5.7 - 6.4%Diabetes: > 6.5% Lab Interpretation (test Abnormal code = 29572-9) [facility] L[facility] (31664)(TOTAL CHOLESTEROL, TRIGLYCERIDES, HDL)2022-04-13 21:34:53 Test Item Value Reference Range Interpretation Comments CHOL (test code = 201 mg/dL 120-200 H 8598866779) HDL (test code = 56 mg/dL See_Comment [Automated message] 2067300808) The system [employer] generated this result transmit sherice reference range : >=50. The refer ence range was not u sed to interpret th is result as normal/abnormal . HDLC RATIO (test code = See_Comment [Au tomated message] 9738042625) The system [employer] generated this result transmit sherice reference range : <=4.5. The refe rence range was not u sed to interpret th is result as normal/abnormal . TRIG (test code = 355 mg/dL 30-170 H 6065651461) LDL CHOL (test code = 74 mg/dL See_Comment [Auto mated message] 09331-9) The system [employer] generated this result transmit sherice reference range : <=160. The refe rence range was not u sed to interpret th is result as normal/abnormal . VLDL (test code = 71 mg/dL 5-60 H 7770896851) Lab Interpretation (test Abnormal code = 42801-0) [facility] HospitalTroponin I - Code [id number] 18:46:27 Test Item Value Reference Interpretation Comments Range TROPONIN I (test 0.013 ng/mL See_Comment [Automated code = 4749861338) message] The system which generated this result [...] biotin. Lab Interpretation Normal (test code = 60344-5) [facility] HospitalBasi Metabolic Panel (NA, K, CL, CO2, Glucose, BUN, Creatinine, CA) - Code [id number] 18:35:07 Test Item Value Reference Range Interpretation Comments NA (test code = 136 mmol/L 135-145 4271136999) K (test code = 4.3 mmol/L 3.5-5 0262752708) CL (test code = 105 mmol/L 98-108 9894693462) CO2 TOTAL (test code = 27 mmol/L 23-31 2259940821) AGAP (test code = 2-16 6987431313) BUN (test code = 8 mg/dL 7-23 6936759608) GLUCOSE (test code = 130 mg/dL 70-110 H 9523282349) CREATININE (test code = 0.75 mg/dL 0.5-1.04 4435927984) CALCIUM (test code = 8.5 mg/dL 8.6-10.6 L 4909085877) eGFR (test code = mL/min/1.73m2 6558646189) LYNDSAY (test code = LYNDSAY) Association of [...] tests). Lab Interpretation Abnormal (test code = 04689-1) [facility] HospitalaPTT - Code Poeirl2850-04-15 18:32:46 Test Item Value Reference Range Interpretation Comments APTT Patient (test See_Comment [Automat ed code = 3173-2) message] The system which generated this result transmitted reference range : 23 - 38 Seconds . The reference range was not used to interpr et this result as normal/abnormal . LYNDSAY (test code = LYNDSAY) The [facility] patient population mean normal value for aPTT is 30 seconds. Lab Interpretation Normal (test code = 98624-0) [facility] HospitalProthrombin Time / INR - Code [id number] 18:30:45 Test Item Value Reference Range Interpretation Comments PROTIME PATIENT (test See_Comment [Auto mated message] code = 5964-2) The system [employer] [facility] generated this result transmitted ref erence range: 12.0 - 1 4.7 Seconds. The re ference range was not u sed to interpret this result as normal/abnor mal. INR (test code = 6301-6) Nor mal INR <1.1; Warfarin Therap eutic range 2.0 to 3. 0 or 2.5 to 3.5, dep ending upon the indica tions. Lab Interpretation (test Normal code = 23880-3) [facility] without Diff - Code [id number] 18:23:07 Test Item Value Reference Range Interpretation Comments WBC (test code = 6690-2) See_Comment [A utomated message] The system [employer] generated this result transmit sherice reference range : 4.30 - 11.10 10*3/?L. The reference range was not used to interpret this result as normal/abnormal . RBC (test code = 789-8) See_Comment [Au tomated message] The system [employer] generated this result transmit sherice reference range [...] See_Comment H [Au tomated message] The system [employer] generated this result transmit sherice reference range : 166 - 358 10*3/?L. The reference range was not used to interpret this result as normal/abnormal . MPV (test code = 8.1 fL 9.5-12.9 L 99207-6) RDW-CV (test code = 16.1 % 12-15.5 H 788-0) RDW-SD (test code = 49.2 fL 39-49.9 96382-1) NRBC x10^3 (test code = See_Comment [Au tomated message] 7028558457) The system [employer] h generated this result transmit sherice reference range : 10*3/?L. The reference range was not used to interpret this result as normal/abnormal . NRBC/100 WBC (test code See_Comment [Au tomated message] = 8161831121) The system [facility] generated this result transmit sherice reference range : 0.0 - 10.0 /100 WBC s. The reference r zoe was not used to interpret this result as normal/abnormal . IPF % (test code = 5629971717) Lab Interpretation (test Abnormal code = 46687-0) [facility] HospitalTRFORMERLY [facility]IN [id number] 21:06:40 Test Item Value Reference Interpretation Comments Range TROPONIN I (test 0.005 ng/mL See_Comment [Automated code = 6729352571) message] The system which generated this result [...] biotin. Lab Interpretation Normal (test code = 16445-4) [facility]. METABOLIC PANEL (15257)2021-11-23 20:55:42 Test Item Value Reference Range Interpretation Comments NA (test code = 137 mmol/L 135-145 7809033617) K (test code = 4.3 mmol/L 3.5-5.0 9427300395) CL (test code = 104 mmol/L 98-108 8727732421) CO2 TOTAL (test code = 22 mmol/L 23-31 L 4584089168) AGAP (test code = 2-16 2341486104) BUN (test code = 15 mg/dL 7-23 1517880570) GLUCOSE (test code = 114 mg/dL 70-110 H 0542844022) CREATININE (test code = 0.68 mg/dL 0.50-1.04 7941959316) TOTAL BILI (test code = 0.5 mg/dL 0.1-1.0 6275295102) CALCIUM (test code = 9.1 mg/dL 8.6-10.6 1799417268) T PROTEIN (test code = 7.3 g/dL 6.3-8.2 1845225240) ALBUMIN (test code = 4.4 g/dL 3.5-5.0 0239661499) ALK PHOS (test code = 243 U/L 34-122 H 1990160639) ALTv (test code = 24 U/L 5-35 2-6) AST(SGOT) (test code = 30 U/L 13-40 7893350415) eGFR (test code = mL/min/1.73m2 2342540181) LYNDSAY (test code = LYNDSAY) Association of [...] tests). Lab Interpretation Abnormal (test code = 11984-4) [facility] HospitalLIPASE2022-05-07 20:55:22 Test Item Value Reference Range Interpretation Comments LIPASE (test code = 7126237503) 96 U/L 0-220 Lab Interpretation (test code = Normal 31706-1) [facility] HospitalPOCT [id number] 20:46:00 Test Item Value Reference Range Interpretation Comments POCT PREG (test code = 1605) negative On board controls acceptable with present C Line (test code = 3574) POCT PREG LOT # (test code = 3575) [id number] POCT PREG TEST DATE (test 04/18/2023 code = 3576) Lab Interpretation (test code = Normal 30090-7) [facility] HospitalCBC WITH [id number] 20:40:38 Test Item Value Reference Range Interpretation Comments WBC (test code = See_Comment [Automated 4890-2) message] The sy stem which generated this [...] (test code = 53.7 fL 39.0-49.9 H 76439-7) RDW-CV (test code = 17.2 % 12.0-15.5 H 788-0) PLT (test code = See_Comment H [Automated 777-3) message] The sy stem which generated this result transmitted reference range : 166 - 358 10*3/ ?L. The reference r zoe was not used to interpret this result as normal/abnormal . MPV (test code = 8.5 fL 9.5-12.9 L 13296-2) NRBC/100 WBC (test See_Comment [Automat ed code = [id number]) message] The system which generated this result transmitted reference range : 0.0 - 10.0 /100 WBCs. The refer ence range was not u sed to interpret th is result as normal/abnormal . NRBC x10^3 (test code <0.01 See_Comment [Auto mated = [id number]) message] The s ystem which generated this result transmitted reference range : 10*3/?L. The reference range was not used to interpret this result as normal/abnormal . GRAN MAT (NEUT) % 53.7 % (test code = 770-8) IMM GRAN % (test code 0.90 % = 4326066141) LYMPH % (test code = 32.6 % 736-9) MONO % (test code = 10.1 % 5905-5) EOS % (test code = 1.5 % 713-8) BASO % (test code = 1.2 % 706-2) GRAN MAT x10^3(ANC) 4.98 10*3/uL 1.88-7.09 (test code = 4227992075) IMM GRAN x10^3 (test 0.08 10*3/uL 0.00-0.06 H code = 1319799753) LYMPH x10^3 (test code 3.02 10*3/uL 1.32-3.29 = 731-0) MONO x10^3 (test code 0.94 10*3/uL 0.33-0.92 H = 742-7) EOS x10^3 (test code = 0.14 10*3/uL 0.03-0.39 711-2) BASO x10^3 (test code 0.11 10*3/uL 0.01-0.07 H = 704-7) Lab Interpretation Abnormal (test code = 50128-6) [facility]-23 20:17:33 Test Item Value Reference Range Interpretation Comments POCT GLU (test code = 111 mg/dL 70-110 H Notifi ed Provider [id number]) Lab Interpretation (test Abnormal code = 41353-8) [facility], THINPREP, [id number] 00:00:00 Test Item Value Reference Range Interpretation Comments SOURCE: (test code = Endocervical 8001) SLIDES: (test code = 1 8011) LMP: (test code = 8021) 06/03/2021 SPECIMEN ADEQUACY: (test (NOTE) code = 05779) INTERPRETATION: (test ASCUS/EPITH. code = 25824) ABNORMALITY; SEE BELOW OPTICIAN APPRENTICE: (test Anusha code = 8101) CHANA Sepulveda(ASCP)[facility] PATHOLOGIST Nahid Russell, INTERPRETATION BY: (test M.D. code = 8122) LOCATION: (test code = (NOTE) 99596) CPT: (test code = 8140) (NOTE) PAP TEST, THINPREP, [id number] 00:00:00 Test Item Value Reference Range Interpretation Comments SOURCE: (test code = Endocervical 8001) SLIDES: (test code = 1 8011) LMP: (test code = 8021) 06/03/2021 SPECIMEN ADEQUACY: (test (NOTE) code = 92233) INTERPRETATION: (test ASCUS/EPITH. code = 39233) ABNORMALITY; SEE BELOW OPTICIAN APPRENTICE: (test Anusha code = 8101) CHANA Sepulveda(ASCP)[facility] PATHOLOGIST Nahid Russell, INTERPRETATION BY: (test M.D. code = 8122) LOCATION: (test code = (NOTE) 26926) CPT: (test code = 8140) (NOTE) PAP TEST, THINPREP, [id number] 00:00:00 Test Item Value Reference Range Interpretation Comments SOURCE: (test code = Endocervical 8001) SLIDES: (test code = 1 8011) LMP: (test code = 8021) 06/03/2021 SPECIMEN ADEQUACY: (test (NOTE) code = 18951) INTERPRETATION: (test ASCUS/EPITH. code = 19991) ABNORMALITY; SEE BELOW OPTICIAN APPRENTICE: (test Anusha code = 8101) CHANA Sepulveda(ASCP)[facility] PATHOLOGIST Nahid Russell, INTERPRETATION BY: (test M.D. code = 8122) LOCATION: (test code = (NOTE) 12841) CPT: (test code = 8140) (NOTE) PAP TEST, THINPREP, [id number] 00:00:00 Test Item Value Reference Range Interpretation Comments SOURCE: (test code = Endocervical 8001) SLIDES: (test code = 1 8011) LMP: (test code = 8021) 06/03/2021 SPECIMEN ADEQUACY: (test (NOTE) code = 87620) INTERPRETATION: (test ASCUS/EPITH. code = 26248) ABNORMALITY; SEE BELOW OPTICIAN APPRENTICE: (test Anusha code = 8101) CHANA Sepulveda(ASCP)[facility] PATHOLOGIST Nahid Russell, INTERPRETATION BY: (test M.D. code = 8122) LOCATION: (test code = (NOTE) 90476) CPT: (test code = 8140) (NOTE) HPV HIGH RISK WITH GENOTYPE, [id number] 00:00:00 Test Item Value Reference Range Interpretation Comments HPV HIGH RISK INTERP (test code = POSITIVE 30858) HPV 16 (test code = 43840) POSITIVE HPV 18 (test code = 67338) NEGATIVE HPV, HR, OTHER GENOTYPES (test code POSITIVE = 68395) HPV HIGH RISK WITH GENOTYPE, [id number] 00:00:00 Test Item Value Reference Range Interpretation Comments HPV HIGH RISK INTERP (test code = POSITIVE 22340) HPV 16 (test code = 22393) POSITIVE HPV 18 (test code = 62600) NEGATIVE HPV, HR, OTHER GENOTYPES (test code POSITIVE = 36955) HPV HIGH RISK WITH GENOTYPE, [id number] 00:00:00 Test Item Value Reference Range Interpretation Comments HPV HIGH RISK INTERP (test code = POSITIVE 45870) HPV 16 (test code = 24560) POSITIVE HPV 18 (test code = 19307) NEGATIVE HPV, HR, OTHER GENOTYPES (test code POSITIVE = 92088) HPV HIGH RISK WITH GENOTYPE, [id number] 00:00:00 Test Item Value Reference Range Interpretation Comments HPV HIGH RISK INTERP (test code = POSITIVE 28731) HPV 16 (test code = 26714) POSITIVE HPV 18 (test code = 27425) NEGATIVE HPV, HR, OTHER GENOTYPES (test code POSITIVE = 91460) [id number] 03:22:48 Test Item Value Reference Range Interpretation Comments APPEARANCE (test code = Hazy Clear A 5752088911) COLOR (test code = Yellow Yellow 1383976299) PH (test code = 4.8-8.0 5447551213) SP GRAVITY (test code = 1.003-1.030 5726248462) GLU U QUAL (test code = Normal Normal 6807425416) BLOOD (test code = Negative Negative Interfere nce from 4249113868) ascorbic acid m ay cause false neg ative results. KETONES (test code = 5 mg/dL Negative A 0326483883) PROTEIN (test code = Negative Negative 2887-8) UROBILIN (test code = 4.0 mg/dL Normal A 2991524668) BILIRUBIN (test code = Negative Negative 5737003862) NITRITE (test code = Negative Negative 0910486547) LEUK GRUPO (test code = Negative Negative 2803967532) RBC/HPF (test code = See_Comment [Autom ated message] 1593643394) The system Workboard generated this result transmitted ref erence range: 0 - 3 HP F. The reference range was not used to int erpret this result as normal/abnormal . WBC/HPF (test code = <1 See_Comment [Autom ated message] 9114169845) The system Workboard generated this result transmitted ref erence range: 0 - 5 HP F. The reference range was not used to int erpret this result as normal/abnormal . BACTERIA (test code = Few Negative A 3719665165) SQ EPITH (test code = HPF 7381583502) Lab Interpretation Abnormal (test code = 44189-5) [facility]IS2021-[facility]-29 03:22:48 Test Item Value Reference Range Interpretation Comments APPEARANCE (test code = Hazy Clear A 7115498068) COLOR (test code = Yellow Yellow 9904289206) PH (test code = 4.8-8.0 1420545784) SP GRAVITY (test code = 1.003-1.030 2937639503) GLU U QUAL (test code = Normal Normal 9540763496) BLOOD (test code = Negative Negative 8129057896) KETONES (test code = 5 mg/dL Negative A 2439681932) PROTEIN (test code = Negative Negative 2887-8) UROBILIN (test code = 4.0 mg/dL Normal A 3813461272) BILIRUBIN (test code = Negative Negative 6642751184) NITRITE (test code = Negative Negative 2657117723) LEUK GRUPO (test code = Negative Negative 0335668036) RBC/HPF (test code = See_Comment [Autom ated message] 2091023441) The system Workboard generated this result transmit sherice reference range : 0 - 3 HPF. The refe rence range was not u sed to interpret th is result as normal/abnormal . WBC/HPF (test code = <1 See_Comment [Autom ated message] 8852065802) The system Workboard generated this result transmit sherice reference range : 0 - 5 HPF. The refe rence range was not u sed to interpret th is result as normal/abnormal . BACTERIA (test code = Few Negative A 3691554490) SQ EPITH (test code = HPF 5059165224) Lab Interpretation (test Abnormal code = 04313-4) [facility] [id number] 02:45:00 Test Item Value Reference Interpretation Comments Range TROPONIN I (test 0.002 ng/mL See_Comment [Automated code = 1448087909) message] The system which generated this result [...] biotin. Lab Interpretation Normal (test code = 04973-4) [facility] HospitalTR[facility] [id number] 02:45:00 Test Item Value Reference Range Interpretation Comments TROPONIN I (test code = 0.002 ng/mL See_Comment [Au tomated 6010286957) message] The sy stem which generated this result transmitted reference range : <=0.034. The reference range was not used to interpret this result as normal/abnormal . LYNDSAY (test code = LYNDSAY) Lab Interpretation Normal (test code = 39814-2) [facility] Hospital[facility]-TERMINAL [id number] 02:41:57 Test Item Value Reference Range Interpretation Comments NT-proBNP (test code 169 pg/mL See_Comment H [Autom ated = 5654301065) message] The system which generated this result transmitted reference range : <=125. The reference range was not used to interpret this result as normal/abnormal . LYNDSAY (test code = LYNDSAY) Biotin has been reported to cause a negative bias, interpret results relative to patient's use of biotin. Lab Interpretation Abnormal (test code = 46289-2) [facility]MINAL [id number] 02:41:57 Test Item Value Reference Range Interpretation Comments NT-proBNP (test code = 169 pg/mL See_Comment H [Aut omated message] 2896884213) The system Workboard generated this result transmit sherice reference range : <=125. The refe rence range was not u sed to interpret th is result as normal/abnormal . LYNDSAY (test code = LYNDSAY) Lab Interpretation (test Abnormal code = 02869-3) [facility] HospitalCOM. METABOLIC PANEL (64023)2021-03-17 02:09:13 Test Item Value Reference Range Interpretation Comments NA (test code = 137 mmol/L 135-145 0723900190) K (test code = 4.2 mmol/L 3.5-5.0 3451195383) CL (test code = 102 mmol/L 98-108 3218184261) CO2 TOTAL (test code = 25 mmol/L 23-31 2817917650) AGAP (test code = 2-16 9342260634) BUN (test code = 18 mg/dL 7-23 1691737823) GLUCOSE (test code = 144 mg/dL 70-110 H 4567495941) CREATININE (test code = 0.77 mg/dL 0.50-1.04 2110356892) TOTAL BILI (test code = 0.4 mg/dL 0.1-1.6 7702133326) CALCIUM (test code = 8.9 mg/dL 8.6-10.6 1973285971) T PROTEIN (test code = 6.8 g/dL 6.3-8.2 5599772236) ALBUMIN (test code = 3.9 g/dL 3.5-5.0 3033932931) ALK PHOS (test code = 84 U/L 34-122 6056972455) ALTv (test code = 13 U/L 5-35 1742-6) AST(SGOT) (test code = 17 U/L 13-40 7075589725) eGFR (test code = mL/min/1.73m2 0237618091) LYNDSAY (test code = LYNDSAY) Association of [...] tests). Lab Interpretation Abnormal (test code = 78910-9) [facility]. METABOLIC PANEL (83421)2021-03-17 02:09:13 Test Item Value Reference Range Interpretation Comments NA (test code = 3932396623) 137 mmol/L 135-145 K (test code = 0755793739) 4.2 mmol/L 3.5-5.0 CL (test code = 7599440401) 102 mmol/L 98-108 CO2 TOTAL (test code = 1835770855) 25 mmol/L 23-31 AGAP (test code = 8542065691) 2-16 BUN (test code = 5004699270) 18 mg/dL 7-23 GLUCOSE (test code = 7831074097) 144 mg/dL 70-110 H CREATININE (test code = 0.77 mg/dL 0.50-1.04 2607624141) TOTAL BILI (test code = 0.4 mg/dL 0.1-1.9 9597893022) CALCIUM (test code = 6333644296) 8.9 mg/dL 8.6-10.6 T PROTEIN (test code = 9589941585) 6.8 g/dL 6.3-8.2 ALBUMIN (test code = 8241964357) 3.9 g/dL 3.5-5.0 ALK PHOS (test code = 5296791006) 84 U/L 34-122 ALTv (test code = 1742-6) 13 U/L 5-35 AST(SGOT) (test code = 2197710211) 17 U/L 13-40 eGFR (test code = 2257069846) mL/min/1.73m2 LYNDSAY (test code = LYNDSAY) Lab Interpretation (test code = Abnormal 52282-3) [facility] WITH [id number] 01:56:33 Test Item Value Reference Range Interpretation Comments WBC (test code = See_Comment H [Automated 9174-2) message] The sy stem which generated this result transmitted reference range : 4.30 - 11.10 10*3/?L. The reference range was not used to interpret this result as normal/abnormal . RBC (test code = See_Comment [Automated 079-8) message] The sy stem which generated this [...] (test code = 55.5 fL 39.0-49.9 H 74821-5) RDW-CV (test code = 18.9 % 12.0-15.5 H 788-0) PLT (test code = See_Comment H [Automated 777-3) message] The sy stem which generated this result transmitted reference range : 166 - 358 10*3/ ?L. The reference r zoe was not used to interpret this result as normal/abnormal . MPV (test code = 8.2 fL 9.5-12.9 L 20075-9) NRBC/100 WBC (test See_Comment [Automat ed code = 3017783746) message] The system which generated this result transmitted reference range : 0.0 - 10.0 /100 WBCs. The refer ence range was not u sed to interpret th is result as normal/abnormal . NRBC x10^3 (test code <0.01 See_Comment [Auto mated = 4169340681) message] The s ystem which generated this result transmitted reference range : 10*3/?L. The reference range was not used to interpret this result as normal/abnormal . GRAN MAT (NEUT) % 61.7 % (test code = 770-8) IMM GRAN % (test code 0.80 % = 4165175207) LYMPH % (test code = 28.5 % 736-9) MONO % (test code = 6.3 % 5905-5) EOS % (test code = 1.8 % 713-8) BASO % (test code = 0.9 % 706-2) GRAN MAT x10^3(ANC) 7.31 10*3/uL 1.88-7.09 H (test code = 7407786109) IMM GRAN x10^3 (test 0.09 10*3/uL 0.00-0.06 H code = 6666452607) LYMPH x10^3 (test code 3.38 10*3/uL 1.32-3.29 H = 731-0) MONO x10^3 (test code 0.75 10*3/uL 0.33-0.92 = 742-7) EOS x10^3 (test code = 0.21 10*3/uL 0.03-0.39 711-2) BASO x10^3 (test code 0.11 10*3/uL 0.01-0.07 H = 704-7) Lab Interpretation Abnormal (test code = 99598-1) [facility] WITH [id number] 01:56:33 Test Item Value Reference Range Interpretation [...] (test code = 55.5 fL 39.0-49.9 H 07636-2) RDW-CV (test code = 18.9 % 12.0-15.5 H 788-0) PLT (test code = See_Comment H [Automated 777-3) message] The sy stem which generated this result transmitted reference range : 166 - 358 10*3/ ?L. The reference r zoe was not used to interpret this result as normal/abnormal . MPV (test code = 8.2 fL 9.5-12.9 L 95678-6) NRBC/100 WBC (test See_Comment [Automat ed code = 5062982812) message] The system which generated this result transmitted reference range : 0.0 - 10.0 /100 WBCs. The refer ence range was not u sed to interpret th is result as normal/abnormal . NRBC x10^3 (test code <0.01 See_Comment [Auto mated = 3699931601) message] The s ystem which generated this result transmitted reference range : 10*3/?L. The reference range was not used to interpret this result as normal/abnormal . GRAN MAT (NEUT) % 61.7 % (test code = 770-8) IMM GRAN % (test code 0.80 % = 2565124931) LYMPH % (test code = 28.5 % 736-9) MONO % (test code = 6.3 % 5905-5) EOS % (test code = 1.8 % 713-8) BASO % (test code = 0.9 % 706-2) GRAN MAT x10^3(ANC) 7.31 10*3/uL 1.88-7.09 H (test code = 8337140279) IMM GRAN x10^3 (test 0.09 10*3/uL 0.00-0.06 H code = 1614455599) LYMPH x10^3 (test code 3.38 10*3/uL 1.32-3.29 H = 731-0) MONO x10^3 (test code 0.75 10*3/uL 0.33-0.92 = 742-7) EOS x10^3 (test code = 0.21 10*3/uL 0.03-0.39 711-2) BASO x10^3 (test code 0.11 10*3/uL 0.01-0.07 H = 704-7) Lab Interpretation Abnormal (test code = 33643-5) [facility]OVID[facility] (ID NOW RAPID TESTING)2021-03-17 01:38:12 Test Item Value Reference Range Interpretation Comments SARS-CoV-2 Rapid ID NOW Not Detected Not Detected (test code = 55364-0) LYNDSAY (test code = LYNDSAY) ID NOW COVID-19 Assay is an isothermal nucleic acid amplification test intended for the qualitative detection of nucleic acid from SARS-CoV-2 viral RNA in nasopharyngeal ([facility] [place]) specimens. It is used under Emergency Use [...] indicated. Lab Interpretation Normal (test code = 38903-2) [facility]-19 (ID NOW RAPID TESTING)2021-03-17 01:38:12 Test Item Value Reference Range Interpretation Comments SARS-CoV-2 Rapid ID NOW (test Not Detected Not Detected code = 26149-1) LYNDSAY (test code = LYNDSAY) Lab Interpretation (test code = Normal 39624-6) [facility]-19 (ID NOW RAPID TESTING)2021-02-19 17:42:45 Test Item Value Reference Range Interpretation Comments SARS-CoV-2 Rapid ID NOW Not Detected Not Detected (test code = 70270-6) LYNDSAY (test code = LYNDSAY) ID NOW COVID-19 Assay is an isothermal nucleic acid amplification test intended for the qualitative detection of nucleic acid from SARS-CoV-2 viral RNA in nasopharyngeal ([facility] [place]) specimens. It is used under Emergency Use [...] indicated. Lab Interpretation Normal (test code = 67951-6) [facility] HospitalCT ABDOMEN PELVIS W [id number] 17:24:55Thickening of the gastric antrum and duodenal bulb could be fromunderdistention, the differential would include sequela of peptic ulcerdisease. No findings of ulcer perforation. Otherwise, no acute intra- abdominal or pelvic abnormality. Stable thickening and nodularity of the left adrenal gland. RL: [id number] Patient name: EUSEBIA TURNERDOB: 1970 51 years [...] nodularity of the left adrenal gland.RL: 8722 [facility] HospitalUrinalysis2021-08-03 17:03:40 Test Item Value Reference Range Interpretation Comments APPEARANCE (test code = Hazy Clear A 7581946920) COLOR (test code = Mabel Yellow A 8559679359) PH (test code = 4.8-8.0 5619366133) SP GRAVITY (test code = 1.003-1.030 H 4117138598) GLU U QUAL (test code = Normal Normal 4050534082) BLOOD (test code = Negative Negative 4057927108) KETONES (test code = 5 mg/dL Negative A 9354672091) PROTEIN (test code = 30 mg/dL Negative A 2887-8) UROBILIN (test code = 4.0 mg/dL Normal A 8695745608) BILIRUBIN (test code = 4 mg/dL Negative A 1773148354) NITRITE (test code = Negative Negative 8429463492) LEUK GRUPO (test code = Negative Negative 8906281928) RBC/HPF (test code = See_Comment H [Autom ated message] 8174323724) The system Workboard generated this result transmit sherice reference range : 0 - 3 HPF. The refe rence range was not u sed to interpret th is result as normal/abnormal . WBC/HPF (test code = See_Comment H [Autom ated message] 0577153374) The system Workboard generated this result transmit sherice reference range : 0 - 5 HPF. The refe rence range was not u sed to interpret th is result as normal/abnormal . BACTERIA (test code = Few Negative A 7559709750) MUCOUS (test code = Moderate Negative LPF A 2827463502) SQ EPITH (test code = HPF 4460727624) CA OXALATE (test code = See_Comment H [Au tomated message] 4233255062) The system Workboard generated this result transmit sherice reference range : <=1 HPF. The refere nce range was not u sed to interpret th is result as normal/abnormal . Ictotest (test code = Negative 4655453996) Lab Interpretation (test Abnormal code = 19551-3) [facility] HospitalComplete Metabolic [id number] 16:34:55 Test Item Value Reference Range Interpretation Comments NA (test code = 139 mmol/L 135-145 8177261770) K (test code = 4.3 mmol/L 3.5-5.0 8687170968) CL (test code = 105 mmol/L 98-108 8686387126) CO2 TOTAL (test code 26 mmol/L 23-31 = 4018060523) AGAP (test code = 2-16 1106069605) BUN (test code = 11 mg/dL 7-23 1874066939) GLUCOSE (test code = 95 mg/dL 70-110 4355226472) CREATININE (test code 0.70 mg/dL 0.50-1.04 = 3088236089) TOTAL BILI (test code 0.6 mg/dL 0.1-1.1 = 5980169134) CALCIUM (test code = 8.9 mg/dL 8.6-10.6 4186973324) T PROTEIN (test code 7.7 g/dL 6.3-8.2 = 5522440999) ALBUMIN (test code = 4.1 g/dL 3.5-5.0 5678745571) ALK PHOS (test code = 79 U/L 34-122 3463133621) ALTv (test code = 10 U/L 5-35 2-6) AST(SGOT) (test code 22 U/L 13-40 = 1953377120) eGFR (test code = mL/min/1.73m2 6315127556) LYNDSAY (test code = LYNDSAY) Association of [...] or urine or abnormalities in imaging tests). [facility] HospitalLipase, [id number] 16:34:14 Test Item Value Reference Range Interpretation Comments LIPASE (test code = 7757141546) 45 U/L 0-220 Lab Interpretation (test code = Normal 21490-7) [facility] HospitalCB with [id number] 16:21:12 Test Item Value Reference Range Interpretation [...] (test code = 54.4 fL 39.0-49.9 H 91731-3) RDW-CV (test code = 18.3 % 12.0-15.5 H 788-0) PLT (test code = See_Comment H [Automated 777-3) message] The sy stem which generated this result transmitted reference range : 166 - 358 10*3/ ?L. The reference r zoe was not used to interpret this result as normal/abnormal . MPV (test code = 8.5 fL 9.5-12.9 L 89629-0) NRBC/100 WBC (test See_Comment [Automat ed code = 1512965970) message] The system which generated this result transmitted reference range : 0.0 - 10.0 /100 WBCs. The refer ence range was not u sed to interpret th is result as normal/abnormal . NRBC x10^3 (test code <0.01 See_Comment [Auto mated = 0976554506) message] The s ystem which generated this result transmitted reference range : 10*3/?L. The reference range was not used to interpret this result as normal/abnormal . GRAN MAT (NEUT) % 78.3 % (test code = 770-8) IMM GRAN % (test code 0.40 % = 1459233477) LYMPH % (test code = 15.4 % 736-9) MONO % (test code = 4.8 % 5905-5) EOS % (test code = 0.1 % 713-8) BASO % (test code = 1.0 % 706-2) GRAN MAT x10^3(ANC) 7.15 10*3/uL 1.88-7.09 H (test code = 0643284810) IMM GRAN x10^3 (test 0.04 10*3/uL 0.00-0.06 code = 3040301826) LYMPH x10^3 (test code 1.41 10*3/uL 1.32-3.29 = 731-0) MONO x10^3 (test code 0.44 10*3/uL 0.33-0.92 = 742-7) EOS x10^3 (test code = <0.03 0.03-0.39 L 711-2) BASO x10^3 (test code 0.09 10*3/uL 0.01-0.07 H = 704-7) Lab Interpretation Abnormal (test code = 68154-0) [facility]
[2022-08-08] MEDS ORDERED: ALBUTEROL 2.5 MG/3 ML NEB SOL ONE (13:47)
[2022-08-08] MEDS ORDERED: IPRATROPIUM BROM 0.5MG/2.5ML ONE (13:47)
--- NOTE | 2022-08-08 13:59 | RAD REPORT ---
EXAM DESCRIPTION: RAD - Chest Single View - 08/08/2022 1:49 pm CLINICAL HISTORY: SOB COMPARISON: Portable 03/13/2022 TECHNIQUE: AP portable chest image was obtained 08/08/2022 1:49 pm . FINDINGS: No peripheral mass or consolidation. Body habitus and portable technique accentuate the bina ng markings. Interstitial pattern is slightly less prominent than on the prior study. No significant failure or volume overload findings seen. Heart and vasculature are normal. No measurable pleural eff usion and no pneumothorax. No acute bony abnormality seen. No acute aortic findings suspected. IMPRESSION: No acute cardiopulmonary process. No significant change from prior imaging. No measurable failure or volume overload on today's study.
[2022-08-08 14:06] LABS: Absolute Lymphocytes (CBC) 1.5 K/uL (0.7-4.9); Hematocrit 34.2 % (36.0-45.0); Lymphocytes % 20.4 % (15.3-44.8); MCV 82.2 fL (80-100); MPV 6.3 fL (7.6-11.3); RBC Red Blood Cell Count 4.17 M/uL (3.86-4.86)
[2022-08-08 14:25] LABS: Magnesium 2.2 mg/dL (1.6-2.4); Potassium 3.6 mmol/L (3.5-5.1); Troponin High Sensitivity 33.3 pg/mL (<58.9)
--- NOTE | 2022-08-08 14:53 | EDPHYS ---
Physician Documentation [facility] Name: Heather Coon Age: 52 yrs Sex: Female : 1970 Arrival Date: 08/08/2022 Time: 13:12 Bed 18 Private MD: ED Physician Norbert Fisher HPI: 08/08 13:35 This 52 yrs old Female presents to ER via EMS with complaints of Shortness of breath. ms3 13:35 52-year-old female with past medical history of anxiety, bipolar, cervical cancer, ms3 chronic pain, depression, COPD, congestive heart failure, seizures, stroke, hypertension presents via clued EMS for shortness of breath began 1 hour prior to arrival. Patient states she has been unable to obtain her Medicaid at this time and is unable to fill her hypertension medications. Patient states she was given a sublingual nitroglycerin by a friend prior to EMS arrival. EMS noted patient's systolic blood pressure to be in the 170s on their arrival. At arrival to the hospital patient's blood pressure was found to be 140/90. Patient states her symptoms have improved since onset. Patient denies chest pain, nausea, vomiting, fevers, chills.. 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 - Social history:: Smoking status: Patient reports the use of cigarette tobacco products, smokes one-half pack cigarettes per day. ROS: 13:35 Constitutional: Negative for fever, and chills. Neck: Negative for injury, pain, and ms3 swelling, Cardiovascular: Negative for chest pain, and palpitations. Abdomen/GI: Negative for abdominal pain, nausea, vomiting, diarrhea, and constipation. 13:35 Skin: Negative for injury, rash, and discoloration. 13:35 Respiratory: Positive for cough, shortness of breath. Exam: 13:35 Constitutional: This is a well developed, well nourished patient who is awake, alert, ms3 and in no acute distress. Head/Face: Normocephalic, atraumatic. Eyes: Pupils equal round and reactive to light, extra-ocular motions intact. Lids and lashes normal. Conjunctiva and sclera are non-icteric and not injected. Periorbital areas with no swelling, redness, or edema. Neck: Trachea midline, no cervical lymphadenopathy. Supple, full range of motion without nuchal rigidity, or vertebral point tenderness. No Meningismus. Chest/axilla: Normal chest wall appearance and motion. Nontender with no deformity. Cardiovascular: Regular rate and rhythm with a normal S1 and S2. No gallops, murmurs, or rubs. Normal PMI, no JVD. No pulse deficits. Respiratory: Lungs have equal breath sounds bilaterally, clear to auscultation and percussion. No rales, rhonchi or wheezes noted. No increased work of breathing, no retractions or nasal flaring. Abdomen/GI: Soft, non-tender, with normal bowel sounds. No distension or tympany. No guarding or rebound. No evidence of tenderness throughout. Skin: Warm, dry with normal turgor. Normal color with no rashes, no lesions, and no evidence of cellulitis. MS/ Extremity: Pulses equal, no cyanosis. Neurovascular intact. Full, normal range of motion. Neuro: Awake and alert, GCS 15, oriented to person, place, time, and situation. Cranial nerves II-XII grossly intact. Motor strength 5/5 in all extremities. Sensory grossly intact. Cerebellar exam normal. Normal gait. 13:52 ECG was reviewed by the Attending Physician. ms3 Vital Signs: 13:19 BP 149 / 86; Pulse 113; Resp 22; Temp 99.4; Pulse Ox 100% ; Weight 92.08 kg; Height 5 kr3 ft. 3 in. (160.02 cm); 14:49 BP 159 / 87; Pulse 105; Resp 20; Pulse Ox 99% on R/A; kr3 15:18 BP 159 / 98; Pulse 103; Resp 18; Pulse Ox 100% on R/A; kr3 13:19 Body Mass Index 35.96 (92.08 kg, 160.02 cm) kr3 MDM: 13:13 Patient medically screened. ms3 13:35 Differential diagnosis: CHF exacerbation, Chronic Obstructive Pulmonary Disease ms3 pneumonia. 15:07 Data reviewed: vital signs, nurses notes, lab test result(s), cardiac enzymes, troponin ms3 i, CBC, electrolytes, and as a result, I will discharge patient. Consideration of Admission/Observation Escalation of care including admission/observation considered. I considered the following discharge prescriptions or medication management in the emergency department Medications were administered in the Emergency Department. See MAR. 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 Historians other than the Patient: EMS: [facility]. Counseling: I had a detailed discussion with the patient and/or guardian regarding: the historical points, exam findings, and any diagnostic results supporting the discharge/admit diagnosis, lab results, radiology results, the need for outpatient follow up, to return to the emergency department if symptoms worsen or persist or if there are any questions or concerns that arise at home, smoking cessation. Special discussion: I discussed with the patient/guardian in detail that at this point there is no indication for admission to the hospital. It is understood, however, that if the symptoms persist or worsen the patient needs to return immediately for re-evaluation. ED course: Discussed labs, imaging with patient. Patient states symptoms have improved since nebulizer treatment and she is agreeable with discharge. Patient is alert and oriented x4, no apparent distress, nontoxic, without wheezing at this time. Patient to follow-up with Dr. Leavitt, Dr. Hummel, and Dr. Moore in 2 to 3 days. Patient chance agrees with plan. Encourage patient to fill prescriptions patient currently has.. 08/08 13:13 Order name: Basic Metabolic Panel; Complete Time: 14:32 ms3 08/08 15:10 Interpretation: Within normal limits: NA 140; K 3.6; CO2 23; GLUC 109; BUN 12; CRE 0.68.ms3 08/08 13:13 Order name: CBC with Diff; Complete Time: 14:32 ms3 08/08 15:11 Interpretation: Abnormal: HCT 34.2; HGB 10.9. ms3 08/08 13:13 Order name: Magnesium; Complete Time: 14:32 ms3 08/08 13:13 Order name: NT PRO-BNP; Complete Time: 14:32 ms3 08/08 13:13 Order name: Troponin HS; Complete Time: 14:32 ms3 08/08 13:13 Order name: XRAY Chest (1 view); Complete Time: 14:05 ms3 08/08 13:13 Order name: EKG; Complete Time: 13:13 ms3 08/08 13:13 Order name: Cardiac monitoring; Complete Time: 13:58 ms3 08/08 13:13 Order name: EKG - Nurse/Tech; Complete Time: 13:46 ms3 08/08 13:13 Order name: IV Saline Lock; Complete Time: 13:58 ms3 08/08 13:13 Order name: Labs collected and sent; Complete Time: 13:58 ms3 08/08 13:13 Order name: O2 Per Protocol; Complete Time: 13:58 ms3 08/08 13:13 Order name: O2 Sat Monitoring; Complete Time: 13:58 ms3 EC:52 Rate is 106 beats/min. Rhythm is regular. Right axis deviation noted. HI interval is ms3 normal. Clinical impression: Sinus tachycardia. Interpreted by me. Reviewed by me. Administered Medications: 13:58 Drug: Albuterol - atroVENT (ipratropium) (3:1) (2.5 mg - 0.5 mg) 3 ml Route: Nebulizer; kr3 15:23 Follow up: Response: No adverse reaction kr3 15:05 Drug: LaSIX (furosemide) 40 mg Route: PO; kr3 15:23 Follow up: Response: No adverse reaction kr3 15:06 Drug: predniSONE 60 mg Route: PO; kr3 15:23 Follow up: Response: No adverse reaction kr3 Disposition Summary: 08/08/22 14:52 Discharge Ordered Location: Home ms3 Condition: Stable ms3 Diagnosis - Shortness of breath ms3 - COPD/ Chronic obstructive pulmonary disease with (acute) exacerbation ms3 - Heart failure, unspecified ms3 - Patient's other noncompliance with medication regimen ms3 - Hypertension secondary to endocrine disorders ms3 - Essential (primary) hypertension ms3 Followup: ms3 - With: Arnel Hummel, DO - When: 2 - 3 days - Reason: Recheck today's complaints Followup: ms3 - With: Saad Leavitt MD - When: 2 - 3 days - Reason: Recheck today's complaints Followup: ms3 - With: Deandre Moore MD - When: 2 - 3 days - Reason: Recheck today's complaints Discharge Instructions: - Discharge Summary Sheet ms3 - Chronic Obstructive Pulmonary Disease ms3 - Heart Failure, Diagnosis ms3 - Shortness of Breath, Adult ms3 - Chronic Obstructive Pulmonary Disease Exacerbation ms3 Forms: - Medication Reconciliation Form ms3 - Thank You Letter ms3 - Antibiotic Education ms3 - Prescription Opioid Use ms3 Prescriptions: - Prednisone 20 mg Oral Tablet - take 2 tablets by ORAL route once daily for 5 days; 10 tablet; Refills: 0, ms3 Product Selection Permitted Signatures: Dispatcher [employer] Norbert Cullen DO DO ms3 Jess Murdock RN RN kr3
--- NOTE | 2022-08-08 14:53 | ER ---
Nurse's Notes [facility] Name: Heather Coon Age: 52 yrs Sex: Female : 1970 Arrival Date: 08/08/2022 Time: 13:12 Bed 18 Private MD: Diagnosis: Shortness of breath;COPD/ Chronic obstructive pulmonary disease with (acute) exacerbation;Heart failure, unspecified;Patient's other noncompliance with medication regimen;Hypertension secondary to endocrine disorders;Essential (primary) hypertension Presentation: 08/08 13:19 Chief complaint: EMS states: patient form home c/o SOB. Diagnosed with CHF and COPD on kr3 Aug 02 2022 but has been unable to get new prescriptions since discharge. Patient was given 0.4 of Nitro that is prescribed to her on scene by a bystander. Coronavirus screen: Vaccine status: Patient reports receiving the 2nd dose of the covid vaccine. Ebola Screen: Patient denies travel to an Ebola-affected area in the 21 days before illness onset. Initial Sepsis Screen: Does the patient meet any 2 criteria? No. Patient's initial sepsis screen is negative. Does the patient have a suspected source of infection? No. Patient's initial sepsis screen is negative. Risk Assessment: Do you want to hurt yourself or someone else? Patient reports no desire to harm self or others. Onset of symptoms was August 08, 2022. 13:19 Method Of Arrival: EMS: [facility] kr3 13:19 Acuity: ANDER 3 kr3 Triage Assessment: 13:25 General: Appears in no apparent distress. comfortable, Behavior is cooperative, kr3 appropriate for age, anxious. 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 - Social history:: Smoking status: Patient reports the use of cigarette tobacco products, smokes one-half pack cigarettes per day. Screenin:19 [facility] ED Fall Risk Assessment (Adult) History of falling in the last 3 months, kr3 including since admission No falls in past 3 months (0 pts) Confusion or Disorientation No (0 pts) Intoxicated or Sedated No (0 pts) Impaired Gait No (0 pts) Mobility Assist Device Used No (0 pt) Altered Elimination No (0 pt) Score/Fall Risk Level 0 - 2 = Low Risk. Abuse screen: Denies threats or abuse. Nutritional screening: No deficits noted. Tuberculosis screening: No symptoms or risk factors identified. Assessment: 14:49 Reassessment: Patient appears in no apparent distress at this time. Patient and/or kr3 family updated on plan of care and expected duration. Pain level reassessed. 15:18 Reassessment: Patient appears in no apparent distress at this time. Patient and/or kr3 family updated on plan of care and expected duration. Pain level reassessed. Patient is alert, oriented x 3, equal unlabored respirations, skin warm/dry/pink. Vital Signs: 13:19 BP 149 / 86; Pulse 113; Resp 22; Temp 99.4; Pulse Ox 100% ; Weight 92.08 kg; Height 5 kr3 ft. 3 in. (160.02 cm); 14:49 BP 159 / 87; Pulse 105; Resp 20; Pulse Ox 99% on R/A; kr3 15:18 BP 159 / 98; Pulse 103; Resp 18; Pulse Ox 100% on R/A; kr3 13:19 Body Mass Index 35.96 (92.08 kg, 160.02 cm) kr3 ED Course: 13:12 Patient arrived in ED. ms3 13:12 Norbert Fisher DO is Attending Physician. ms3 13:19 Jess Murdock, BETH is Primary Nurse. kr3 13:22 Triage completed. kr3 13:25 Arm band placed on left wrist. Patient placed in an exam room, on a stretcher. kr3 13:30 Bed in low position. Call light in reach. Side rails up X 1. kr3 13:51 XRAY Chest (1 view) In Process Unspecified. EDMS 14:51 Arnel Hummel DO is Referral Physician. ms3 14:51 Saad Leavitt MD is Referral Physician. ms3 14:51 Deandre Moore MD is Referral Physician. ms3 15:19 No provider procedures requiring assistance completed. kr3 15:19 IV discontinued, intact, bleeding controlled, No redness/swelling at site. Pressure kr3 dressing applied. Administered Medications: 13:58 Drug: Albuterol - atroVENT (ipratropium) (3:1) (2.5 mg - 0.5 mg) 3 ml Route: Nebulizer; kr3 15:23 Follow up: Response: No adverse reaction kr3 15:05 Drug: LaSIX (furosemide) 40 mg Route: PO; kr3 15:23 Follow up: Response: No adverse reaction kr3 15:06 Drug: predniSONE 60 mg Route: PO; kr3 15:23 Follow up: Response: No adverse reaction kr3 Medication: 15:20 VIS not applicable for this client. kr3 Outcome: 14:52 Discharge ordered by . ms3 15:19 Discharged to home ambulatory. kr3 15:19 Condition: stable 15:19 Discharge instructions given to patient, Instructed on discharge instructions, follow up and referral plans. medication usage, Demonstrated understanding of instructions, follow-up care, medications, Prescriptions given X 1. 15:24 Patient left the ED. kr3 Signatures: Dispatcher [employer] EDMS Norbert Fisher DO DO ms3 Jess Murdock RN RN kr3 Corrections: (The following items were deleted from the chart) 13:24 13:19 Chief complaint: EMS states: patient form home c/o SOB. Diagnosed with CHF and kr3 COPD on Aug 02 2022 but has been unable to get new prescriptions since discharge. kr3
[2022-08-08] MEDS ORDERED: FUROSEMIDE 20 MG TABLET ONE (15:04)
[2022-08-08] MEDS ORDERED: predniSONE 20 MG TAB ONE (15:05)
[2022-08-08 15:54] VITALS: TEMP 99.4
[2022-08-08 15:56] VITALS: BP 159/98; O2SAT 100
--- NOTE | 2022-08-11 17:01 | EKG ---
Test Date: 2022-08-08 Test Time: 13:44:59 Inspector And Mender: SHANIQUE MEASUREMENT RESULTS: Intervals: Rate: 106 NE: 150 QRSD: 92 QT: 364 QTc: 483 [place]: P: 65 NE: 150 QRS: 118 T: 47 INTERPRETIVE STATEMENTS: Sinus tachycardia Right atrial enlargement Right axis deviation Abnormal ECG Compared to ECG 08/02/2022 12:59:44 Sinus rhythm no longer present Prolonged QT interval no longer present Electronically Signed On 08-11-22 16:56:22 FURNACE ROASTER by Saad Leavitt
== END 2022-08-08 15:24 | disposition home or self-care (01) ==
LOC: ER 13:10
DX: J44.1 Chronic obstructive pulmonary disease with (acute) exacerbation (principal); I50.9 Heart failure, unspecified; I15.2 Hypertension secondary to endocrine disorders; I10 Essential (primary) hypertension; Z91.14 Patient's other noncompliance with medication regimen; F17.210 Nicotine dependence, cigarettes, uncomplicated; Z88.8 Allergy status to other drugs, medicaments and biological substances; Z91.018 Allergy to other foods
CPT/HCPCS: 36415; 71045; 80048; 83735; 83880; 84484; 85025; 93005; 94640; 99284; J7512; J7613; J7644

== ENCOUNTER 2022-08-14 12:32 | Emergency (ER) | payer SELFPAY ==
--- OUTSIDE RECORDS SUMMARY | 2022-08-14 12:41 | XMS REPORT | Continuity of Care Document ---
:1970 Author Organization [facility] t Address [address] [place] [address] Care Team Providers Name Role Phone Aneta Silva Primary Care Physician [phone] Reji ELIZONDO, Halima Hummel Attending Clinician Lucho ELIZONDO, Jen Parsons Attending Clinician Parrish Diane MD Attending Clinician PARRISH DIANE Attending Clinician Unavailable LORENZA HER Attending Clinician Unavailable Sav Rondon MD Attending Clinician Lorenza Her MD Attending Clinician Maria Teresa Nicole LVN Attending Clinician CHANTEL MATTHEWS Attending Clinician Unavailable CHANTEL MATTHEWS Attending Clinician Unavailable Brandyn Mcfarlane MD Attending Clinician SELINA MARTINES Attending Clinician Unavailable Sapna Vargas DO Attending Clinician Glory Esteves MD Attending Clinician [phone] Selina Martines MD Attending Clinician Vaccine, Chung Pierson Attending Clinician Unavailable Jose Frederick MD Attending Clinician JOSE FREDERICK Attending Clinician Unavailable NICHELLE ALLISON Attending Clinician Unavailable Sully HOME HEALTH CARE PROVIDER, Nichelle F Attending Clinician Doctor Unassigned, [facility] Attending Clinician Unavailable Miky Nava RN Attending Clinician Unavailable Palmer HOME HEALTH CARE PROVIDERFabrice Otoole Attending Clinician Deo HOME HEALTH CARE PROVIDER, Lydia Attending Clinician Unknown, Attending Attending Clinician Unavailable [...] Policy Number Effective Date Expiration Date S [facility] MEDICAID SSI PENDING 2022 PENDING 00:00:00 Problems Condition Condition Condition Status Onset Resolution Last Treating Co mments Source Name Details Category Date Date Treatment Clinician Date Seizure Seiz[facility] Disease [facility] [place] [id number] [facility] Cardiomyop Cardiomyop Disease Active U nivers athy athy -13 ity of 00:00: [place] 00 Medical Branch NSVT NSVT Disease Active Univers (nonsustai (nonsustai 13 it y of keisha keisha 00:00: [place] ventricula ventricula 00 Me dical r r Branch tachycardi tachycardi a) a) Chest Chest Disease Active 2023-0 Univers pain, pain, 1-12 ity of unspecifie [...] 00:00: [place] involving involving 00 Medi kwame [place] coronary coronary artery of artery of [place] heart heart without without angina angina pectoris pectoris Snores Snores Disease Active Univers 1-12 ity of 00:00: [place] [facility] Cigarette Cigarette Disease Active Uni vers smoker smoker 1-12 ity of 00:00: [place] [facility] Primary Primary Disease Active Univers hypertensi hypertensi 1-12 it y of on on 00:00: [place] [facility] Other Other Disease Active Univers hyperlipid hyperlipid 1-12 it y of emia emia 00:00: [place] [facility] Chronic Chronic Disease Active 2021-07 [...] e symptoms 9-25 it y of 00:00: [place] 00 Medical Branch Bipolar Bipolar Disease Active [...] spinal 3 ity of stenosis stenosis 00:00: [place] 00 [...] nivers a a 09-27 ity of 00:00: [place] [facility] Bipolar Bipolar Disease Active Univers disorder, disorder, 09-27 ity of in partial [place] remission, remission, 00 Me dical most most Branch recent recent episode episode manic manic 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 09-27 it y of disorder disorder 00:00: [place] [facility] Breast Breast Disease Active Univers mass, left mass, left 09-17 it y of 00:00: [place] [facility] Anxiety Anxiety Disease Active Univers 3 ity of 00:00: [place] [facility] Lower back Lower back Disease Active U nivers pain pain 3 ity of 00:00: Medical Branch High blood High blood Disease Active U nivers pressure pressure 3 ity of 00:00: [place] [facility] COPD COPD Disease Active Univers (chronic (chronic 3 ity of obstructiv obstructiv 00:00: [place] e e 00 Medical pulmonary pulmonary Bran ch disease) disease) Obesity Obesity Disease Active Univers 3 ity of 00:00: [place] 00 Medical Branch Allergies, Adverse Reactions, Alerts Allergy Allergy Status Severity Reaction(s) Onset Inactive Treating Comm ents Source Name Type Date Date Clinician Green Propensi Active [facility] adverse 00:00: Medical reaction 00 Center s Fluoxeti Propensi Active Rash [facility] adverse 00:00: Medical reaction 00 Center s FLUOXETI Allergy Active Med Rash [facility]: Medical 00 Center GREEN Allergy Active 2022-0 [facility] TEA 08-02 00:00: 00 Fluoxeti Propensi [...] to Branch drug FLUOXETI DRUG Active Hives 2014- Univers NE HCL INGREDI 03-19 ity of 00:00: [place] 00 Medical Branch Fluoxeti Propensi Active Hives Univer s ne Hcl ty to 03-19 ity of adverse 00:00: [place] reaction 00 Medical s Branch Family History Family Member Diagnosis Comments Start Date Stop Date Source Natural mother Alcohol abuse [facility] Natural mother Cancer [facility] Natural mother Diabetes [facility] Natural mother Heart disease [facility] Natural mother Hyperlipidemia [facility] Natural mother Kidney disease [facility] Natural mother Stroke [facility] Paternal uncle Diabetes [facility] Social History Social Habit Start Date Stop Date Quantity Comments Source History of tobacco Passive smoker Un iversity of use [place] [facility] History SDOH Social Unive rsity of [facility] ical Together Branch History SDOH Social Unive rsity of [facility] Branch History SDOH Social Unive rsity of Connections [place] [facility] Membership Branch History SDOH Social Unive rsity of Connections [place] [facility] Meetings Branch History SDOH [facility] [...] Unive rsity of Connections Phone 00:00:00 00:00:00 [place] M edical Branch History SDOH Social 2022-08-01 [...] 1 Univers ity of Scarcity 00:00:00 00:00:00 [place] [facility] History SDOH 2022-08-01 2022-08-01 2 [place] [facility] Med 00:00:00 00:00:00 [place] Medic al Branch History SDOH 2022-08-01 2022-08-01 2 [place] [facility] Transport Non-Med 00:00:00 00:00:00 [place] M edical [facility] Cigarette 2022-07-31 2022-07-31 University of pack-years 00:00:00 00:00:00 [place] [facility] 2022-07-31 2022-07-31 14 University of 00:00:00 00:00:00 [facility] Sex Assigned At [birth year] [facility] 00:00:00 00:00:00 [facility] Smoking Status Start Date Stop Date Source Current every day smoker 2022-08-02 00:00:00 [facility] Medications Ordered Filled Start Stop Current [...] 40mg 40 mg, Univ ers (DELTASONE) 1-14 08-07 Oral, ity of tablet 40 15:00: 14:59 DAILY, 5 J[place] as mg 00 :00 doses, Medical First dose Branch on 08/02/22 at 0900, Last dose on 08/06/22 at 0900, Routine morpHINE (2 Yes 2mg 2 mg, Slow Univers mg/mL) 1-14 IV Push, ity of injection 2 03:29: Q4HPRN, [place] mg 15 Starting Medical on Fri Branch 08/01/22 at 2129, Until Discontinu ed, [...] 1-13 by mouth ity of 23:49: daily. [address] Branch omega-3 2022-0 Yes 1g Take 1 g Univer s fatty -13 by mouth ity of acids-vitam 23:49: [place]. [place] in E (FISH 34 Medical OIL) 1,000 Branch mg capsule loratadine 0 Yes Take by Univ ers (CLARITIN 1-13 mouth ity of LIQUI-GEL) 23:49: daily. [place] 10 [facility] Medical capsule Branch ondansetron 0 Yes 4mg Take 4 mg U nivers 4 mg tablet 08-01 by mouth ity of 23:49: every 8 [place] [address] (eight) Medical hours as Branch needed. pantoprazol 0 Yes 40mg Take 40 mg Univers e 40 mg EC 08-01 by mouth ity o f tablet 23:49: daily. [address] benzonatate 0 Yes 100mg 100 mg, Un lois (TESSALON 1-13 Oral, Q8H, ity of PERLES) 20:00: [place] capsule 100 00 on Fri Medica l mg 08/01/22 at Branch 1400, Until Discontinu ed, Routine ipratropium 2022-0 Yes 3mL 3 mL, Unive rs -albuteroL 1-13 Inhalation ity of (DUONEB) 18:00: , QIDJos eMiguel 0.5 mg-3 00 First dose Medic al mg(2.5 mg on Fri Branch base)/3 mL 08/01/22 at nebulizer 1200, solution 3 Until mL Discontinu ed, Routine ipratropium 2022-0 Yes 3mL 3 mL, Unive rs -albuteroL 1-13 Inhalation ity of (DUONEB) 17:07: , QIDPRN, [place] 0.5 mg-3 07 Starting Medical mg(2.5 mg on Fri Branch base)/3 mL 08/01/22 at nebulizer 1107, solution 3 Until mL Discontinu ed, MICHAEL, Wheezing, Shortness of Breath sulfur 2022-0 2023- No [id number] 5mL 5 mL, Unive rs hexafluorid 08-01 Intravenou i ty of e microsphr 17:00: 17:00 s, ONCE, 1 [place] (LUMASON) 00 :00 dose, On Medica l injection 5 Fri Branch mL 08/01/22 at 1100, Routine
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 medication : WOODY DIEGO [...] mg 00 :13 First dose Medical on Thu Branch 08/01/22 at 0800, Until Discontinu ed, Routine levETIRAcet 2022- No 1000mg 1,000 mg, Univers am (KEPPRA) 08-01 IV ity of in NACL 06:45: 06:32 Piggyback, [place] as (ISO-OS) 00 :00 ONCE, 1 Medical 1,000 dose, On Branch mg/100 mL Fri RTU 08/01/22 at 0045, Administer over 15 Minutes, 100 mL LORazepam 2022-0 Yes 1mg 1 mg, Slow Un lois (ATIVAN) 13 IV Push, ity of injection 1 05:52: Q4HPRN, [place] mg 54 Starting Medical on [facility] Branch 07/31/22 at 2352, Until Discontinu ed, Routine, Seizures, Agitation, Anxiety, ETOH / Cocaine Withdrawl foLIC acid 2022-0 Yes 1mg 1 mg, Univer s (FOLATE) 13 Oral, ity of tablet 1 mg 05:45: DAILY, [place] 00 First dose Medical on [facility] 07/31/22 at 2345, Until Discontinu ed, Routine thiamine 2022-0 Yes 100mg 100 mg, Unive rs (VITAMIN -13 Oral, ity of B1) tablet 05:45: DAILY, [place] 100 mg 00 First dose Medical on [facility] 07/31/22 at 2345, Until Discontinu ed, Routine LORazepam 2022-0 2022- No .5mg 0.5 mg, Univ ers (ATIVAN) 08-01 01-13 Slow IV ity of injection 05:30: 05:29 Push, [place] 0.5 mg 00 :00 ONCE, 1 Medical dose, On Branch [facility] 07/31/22 at 2330, MICHAEL atorvastati 2022-0 Yes 40mg 40 mg, Univ ers n (LIPITOR) 08-01 Oral, QHS, it y of tablet 40 03:00: First dose [place] mg 00 on [facility] 07/31/22 at Branch 2100, Until Discontinu ed, Routine diphenhydrA 2022-0 Yes 25mg 25 mg, Univ ers MINE -13 Oral, ity of (BENADRYL) 00:32: Q6HPRN, [place] tablet 25 02 Starting Medica l mg on [facility] Branch 07/31/22 at 1832, Until Discontinu ed, Routine, Itching enoxaparin 2022-0 Yes 40mg 40 mg, Unive rs (LOVENOX) 12 Subcutaneo ity of injection 23:00: [place], DAILY, [place] 40 mg 00 First dose Medical on [facility] 07/31/22 at 1700, Until Discontinu ed, Routine morpHINE (2 2022-0 2022- No 2mg 2 mg, Slow Univers mg/mL) 07-31 IV Push, ity of injection 2 23:00: 22:29 ONCE, 1 [place] mg 00 :00 dose, On Medical [place] Branch 07/31/22 at 1700, Routine HYDROcodone 2022-0 Yes 1{tbl} 1 tablet, Univers -acetaminop 07-31 Oral, ity of hen (NORCO) 22:01: Q6HPRN, [place] as 10-325 mg 36 Starting Medica l tablet 1 on [facility] Branch tablet 07/31/22 at 1601, Until Discontinu ed, Routine, Pain (scale 7-10) HYDROcodone 2022-0 202- Yes 1{tbl} 1 tablet, Univers -acetaminop 07-31 Oral, ity of hen (NORCO 22:01: 22:00 Q6HPRN, [place] as 5) 5-325 mg 34 :34 Starting Medi kwame tablet 1 on [facility] Branch tablet 07/31/22 at 1601, Until 08/02/22 at 1600, Routine, Pain (scale 4-6) acetaminoph 2022-0 Yes 650mg 650 mg, Un lois en 07-31 Oral, ity of (TYLENOL) 22:01: Q6HPRN, [place] tablet 650 33 Starting Medic al mg on [place] Branch 07/31/22 at 1601, Until Discontinu ed, Routine, Pain (scale 1-3) ketorolac 2022-0 2022- No 15mg 15 mg, Unive rs (TORADOL) 07-31 Slow IV ity of injection 21:45: 20:50 Push, [place] 15 mg 00 :00 ONCE, 1 Medical dose, On Branch Ar[place]ita 07/31/22 at 1545, Routine ondansetron 2022-0 202- No 4mg 4 mg, Slow Univers (ZOFRAN 07-31 IV Push, ity of (PF)) 21:00: 20:47 ONCE, 1 [place] injection 4 00 :00 dose, On Medi kwame mg [place] Branch 07/31/22 at 1500, MICHAEL furosemide 2022-0 Yes 40mg 40 mg, Unive rs (LASIX) 12 Slow IV ity of injection 20:15: Push, [...] mouth ity o f tablet 17:15: daily. [place] 40 [facility] Branch MULTIVITAMI 0 Yes 1{tbl} Take 1 Tab Univers N ORAL -12 by mouth ity of 15:50: daily. [place] 57 Medical Branch loratadine 0 Yes Take by [facility] ers (CLARITIN 12 mouth ity of LIQUI-GEL) 15:50: daily. [place] 10 mg 57 Medical capsule Branch ondansetron Yes 4mg Take 4 mg U nivers 4 mg tablet 12 by mouth ity of 15:50: every 8 [place] 57 (eight) Medical hours as Branch needed. omega-3 Yes 1g Take 1 g Univer s fatty 12 by mouth ity of acids-vitam 15:21: daily. [place] in [place] (FISH 27 Medical OIL) 1,000 Branch mg capsule TAKE ONE No (1) 1-09 TABLET(S) 00:00: BY MOUTH 00 THREE TIMES A DAY NEEDED. Methylpredn 2021-07- No [id number] 4mg Take 1 Univers isolone 4 0-22 10-24 tablet ity of mg tablet 00:00: 04:59 through [place] 00 :00 enteral Medical tube in Branch the morning for 1 dose. Methylpredn 2021-07- No [id number] 4mg Take 1 Univers isolone 4 0-21 10-23 tablet ity of mg tablet 00:00: 04:59 through [place] 00 :00 enteral Medical tube every Branch 12 (twelve) hours for 2 doses. MULTIVITAMI 2021-07 Yes 1{tbl} Take 1 Tab Univers N ORAL 0-20 by mouth ity of 14:44: daily. [place] [address] Medical Branch omega-3 2021-07 Yes 1g Take 1 g Univer s fatty 0-20 by mouth ity of acids-vitam 14:44: daily. [place] in [place] (FISH 48 Medical OIL) 1,000 Branch mg capsule loratadine 2021-07 Yes Take by [facility] ers (CLARITIN 0-20 mouth ity of LIQUI-GEL) 14:44: daily. [place] 10 mg 48 Medical capsule Branch ondansetron 2021-07 Yes 4mg Take 4 mg U nivers (ZOFRAN) 4 0-20 by mouth ity o f mg tablet 14:44: every 8 [place] 48 (eight) Medical hours as Branch needed. pantoprazol 2021-07 Yes 40mg Take 40 mg Univers e 0-20 by mouth ity of (PROTONIX) 14:44: daily. [place] 40 mg EC 48 Medical tablet Branch DULoxetine 2021-07 Yes 30mg 30 mg, Unive rs (CYMBALTA) 0-20 Oral, ity of capsule 30 14:00: DAILY, [place] mg 00 First dose Medical on [facility] Branch 05/08/22 at 0900, Until Discontinu ed, Routine divalproex 2021-07 Yes 1000mg 1,000 mg, Univers (DEPAKOTE) 0-20 Oral, BID, ity of EC tablet 13:00: First dose [place] 1,000 mg 00 (after Medical last Branch modificati on) on [facility] 05/08/22 at 0800, Until Discontinu ed, Routine Methylpredn 2021-07- No 4mg 4 mg, Univ ers isolone 0-20 10-21 Oral, Q8H ity of (MEDROL) 08:50: 08:59 TAPER, 3 [place] tablet 4 mg 10 :00 doses, Medica l First dose Branch on [facility] 05/08/22 at 0400, Last dose on [facility] 05/08/22 at 2000, Routine acetaminoph 2021-07 Yes 1{tbl} 1 tablet, Univers en-codeine 0-20 Oral, ity of (TYLENOL 04:07: Q4HPRN, [place] #3) 300-30 01 Starting Medic al mg tablet 1 on Thu [place] tablet 05/07/22 at 2307, Until Discontinu ed, [...] Javier as 18 Starting Medical on Thu [place] 05/07/22 at 1902, Until Discontinu ed, Routine, Anxiety cyclobenzap 2021-07 Yes [id number] 5mg Take 1 Univers rine 5 mg 0-20 tablet by ity o f tablet 00:00: mouth in [place] [address] the [facility] [place] [facility] and 1 tablet at noon and 1 tablet in the evening. cyclobenzap 2021-07 Yes [id number] 5mg Take 1 Univers rine 5 mg 0-20 tablet by ity o f tablet 00:00: mouth in [address] and 1 tablet at noon and 1 tablet in the evening. cyclobenzap 2021-07 Yes [id number] 5mg Take 1 Univers rine 5 mg 0-20 tablet by ity o f tablet 00:00: mouth in [address] and 1 tablet at noon and 1 tablet in the evening. DULoxetine 2021-07- No [id number] 60mg Take 2 Univers (CYMBALTA) 0-20 11-20 capsules ity of 30 mg 00:00: 05:59 by mouth [place] capsule 00 :00 in the [facility] [place] [facility] for 30 days. divalproex 2021-07- No [id number] 750mg Take 3 Univers (DEPAKOTE) 0-20 11-20 tablets by it y of 250 mg EC 00:00: 05:59 mouth [place] tablet 00 :00 every 8 Medical (eight) Branch hours for 30 days. LORazepam 1 2021-07- No [id number] 1mg Take 1 Univers mg tablet 0-20 [...] Indication s: acute pain Methylpredn 2021-07- No [id number] 4mg Take 1 Univers isolone 4 0-20 -22 tablet by ity of mg tablet 00:00: 04:59 mouth [place] 00 :00 every 8 Medical (eight) Branch hours for 3 doses. divalproex 2021-07 No 750mg 750 mg, Un lois (DEPAKOTE) 0-19 10-20 Oral, BID, it y of EC tablet 01:00: 09:40 First dose [place] 750 mg 00 :23 on [facility] 05/06/22 Branch at 2000, Until Discontinu ed, Routine levETIRAcet 2021-07- No 1500mg 1,500 mg, Univers am (KEPPRA) 0-18 10-18 Oral, BID, i ty of tablet 13:00: 18:38 First dose [place] 1,500 mg 00 :22 (after Medical last Branch modificati on) on [facility] 05/06/22 at 0800, Until Discontinu ed, Routine levETIRAcet 2021-07 No 1000mg 1,000 mg, Univers am (KEPPRA) 0-18 10-18 IV ity of in NACL 05:00: 05:46 Piggyback, [place] as (ISO-OS) 00 :00 ONCE, 1 Medical 1,000 dose, On Branch mg/100 mL [facility] RTU 05/06/22 at 0000, Administer over 15 Minutes, 100 mL methocarbam 2022-1 2022- No 500mg 500 mg, U nivers oL 0-18 10-18 Oral, QID, ity of (ROBAXIN) 02:15: 23:21 First dose [place] tablet 500 00 :42 on [facility] Medical mg 05/05/22 Branch at 2115, Until Discontinu ed, Routine LORazepam 2021-07- No 2mg 2 mg, Univer s (ATIVAN) 0-18 10- Oral, ity of tablet 2 mg 01:30: 01:03 ONCE, 1 [place] 00 :00 dose, On [facility] 05/05/22 at 2030, Routine levETIRAcet 2021-07- No 1000mg 1,000 mg, Univers am (KEPPRA) 018 05-06 Oral, BID, i ty of tablet 01:00: 04:48 First dose [place] 1,000 mg 00 :06 on [facility] 05/05/22 Branch at 2000, Until Discontinu ed, Routine enoxaparin 2021-07 Yes 40mg 40 mg, Unive rs (LOVENOX) 0-18 Subcutaneo ity of injection 00:15: us, Q24H, [place] as 40 mg 00 First dose Medical on [facility] 05/05/22 at 1915, Until Discontinu ed, Routine levETIRAcet 2021-07- No 1000mg 1,000 mg, Univers am (KEPPRA) 0-05-05 IV ity of in NACL 19:45: 20:05 Piggyback, [place] as (ISO-OS) 00 :00 ONCE, 1 Medical 1,000 dose, On Branch mg/100 mL [facility] RTU 05/05/22 at 1445, Administer over 15 Minutes, 100 mL clonazePAM 2021-07 Yes .5mg 0.5 mg, Univ ers (KLONOPIN) 0-17 Oral, BID, ity of tablet 0.5 19:30: First dose [place] mg 00 on [facility] 05/05/22 Branch at 1430, Until Discontinu ed, Routine ibuprofen 2021-07 Yes 600mg 600 mg, Univ ers (IBU) 0-17 Oral, TID ity of tablet 600 19:30: MEALS, [place] mg 00 First dose Medical on [facility] 05/05/22 at 1430, Until Discontinu ed, Routine gabapentin 2021-07 Yes 300mg 300 mg, Uni vers (NEURONTIN) 0-17 Oral, TID, it y of capsule 300 19:30: First dose [place] mg 00 on [facility] Medical 05/05/22 Branch at 1430, Until Discontinu ed, Routine cyclobenzap 2021-07 Yes 5mg 5 mg, Unive rs rine 0-17 Oral, TID, ity of (FLEXERIL) 19:30: First dose [place] tablet 5 mg 00 on [facility] Medica l 05/05/22 Branch at 1430, Until Discontinu ed, Routine acetaminoph 2021-07 Yes 1000mg 1,000 mg, Univers en 0-17 Oral, Q8H, ity of (TYLENOL) 19:30: First dose [place] tablet 00 on [facility] 1,000 mg 05/05/22 Branch at 1430, Until Discontinu ed, Routine pantoprazol 2021-07 Yes 40mg 40 mg, Univ ers e 0-17 Oral, ity of (PROTONIX) 14:00: DAILY, [place] EC tablet 00 First dose Medi kwame 40 mg on [facility] 05/05/22 at 0900, Until Discontinu ed, Routine docusate 2021-07 Yes 100mg 100 mg, Unive rs (COLACE) 0-17 Oral, ity of capsule 100 14:00: DAILY, [place] mg 00 First dose Medical on [facility] 05/05/22 at 0900, Until Discontinu ed, Routine HYDROcodone 2021-07- No 1{tbl} 1 tablet, Univers -acetaminop 0-17 10-17 Oral, ity of hen (NORCO) 10:32: 19:18 Q6HPRN, [place] 10-325 mg 02 :52 Starting Medica l tablet 1 on [facility] tablet 05/05/22 at 0532, Until [facility] 05/05/22 at 1418, Routine, Pain (scale 7-10) ondansetron 2021-07 Yes 4mg 4 mg, Slow Univers (ZOFRAN 0-17 IV Push, ity of (PF)) 06:49: Q6HPRN, [place] injection 4 57 Starting Medi kwame mg on [facility] Branch 05/05/22 at 0149, Until Discontinu ed, Routine, Nausea and Vomiting (N/V) HYDROcodone 2021-07- No 1{tbl} 1 tablet, Univers -acetaminop 0-05-05 Oral, ity of hen (NORCO 06:49: 10:32 Q6HPRN, [place] as 5) 5-325 mg 41 :14 Starting Medi kwame tablet 1 on [facility] tablet 05/05/22 at 0149, Until [facility] 05/05/22 at 0532, Routine, Pain (scale 7-10) acetaminoph 2021-07- No 325mg 325 mg, U nivers en 005-05 Oral, ity of (TYLENOL) 06:49: 19:18 Q4HPRN, [place] tablet 325 39 :52 Starting Medic al mg on [facility] Branch 05/05/22 at 0149, Until [facility] 05/05/22 at 1418, Routine, Pain (scale 4-6) ondansetron 2021-07- No 4mg 4 mg, Univ ers (ZOFRAN) 005-05 Oral, ity of tablet 4 mg 04:00: 03:26 ONCE, 1 [place] 00 :00 dose, On [facility] 05/04/22 at 2300, Routine morpHINE (2 2021-07 No 2mg 2 mg, Slow Univers mg/mL) 05-05 IV Push, ity of injection 2 04:00: 03:26 ONCE, 1 [place] mg 00 :00 dose, On [facility] 05/04/22 at 2300, Routine aspirin 81 2021-0 Yes [id number] 81mg Take 1 U nivers mg chewable 9-28 tablet by ity of tablet 00:00: mouth in [place] [address] the Medical morning. Branch aspirin 81 2021-0 Yes [id number] 81mg Take 1 U nivers mg chewable 9-28 tablet by ity of tablet 00:00: mouth in [place] [address] the Medical morning. Branch aspirin 81 2021-0 Yes [id number] 81mg Take 1 U nivers mg chewable 9-28 tablet by ity of tablet 00:00: mouth in [place] [address] the Medical morning. Branch aspirin 81 2021-0 Yes [id number] 81mg Take 1 U nivers mg chewable 9-28 tablet by ity of tablet 00:00: mouth in [place] [address] the Medical morning. Branch MULTIVITAMI 2021-0 Yes 1{tbl} Take 1 Tab Univers N ORAL 04-15 by mouth ity of 17:39: daily. [place] 14 Medical Branch omega-3 Yes 1g Take 1 g Univer s fatty 04-15 by mouth ity of acids-vitam 17:39: daily. [place] in E (FISH 14 Medical OIL) 1,000 Branch mg capsule loratadine Yes Take by Univ ers (CLARITIN 04-15 mouth ity of LIQUI-GEL) 17:39: daily. [place] 10 mg 14 Medical capsule Branch ondansetron Yes 4mg Take 4 mg U nivers (ZOFRAN) 4 04-15 by mouth ity o f mg tablet 17:39: every 8 [place] 14 (eight) Medical hours as Branch needed. pantoprazol Yes 40mg Take 40 mg Univers e 04-15 by mouth ity of (PROTONIX) 17:39: daily. [place] 40 mg EC 14 Medical tablet Branch [...] Oral, ity of (TYLENOL 05:39: 14:39 Q6HPRN, [place] #4) 300-60 23 :42 Starting Medic al [...] Branch Thu04/14/22 at 2115, Routine levETIRAcet Yes [id number] 1000mg Take 1 Univers am 1,000 mg 9-27 tablet by ity of tablet 00:00: mouth in [place] 00 the Medical morning Branch and 1 tablet in the evening. atorvastati Yes [id number] 40mg Take 1 Univers n 40 mg 9-27 tablet by ity of tablet 00:00: mouth at [place] 00 bedtime. Medical Branch atorvastati Yes [id number] 40mg Take 1 Univers n 40 mg 9-27 tablet by ity of tablet 00:00: mouth at [place] [address] bedtime. Medical Branch atorvastati Yes [id number] 40mg Take 1 Univers n 40 mg 9-27 tablet by ity of tablet 00:00: mouth at [place] 00 bedtime. Medical Branch atorvastati Yes [id number] 40mg Take 1 Univers n 40 mg 9-27 tablet by ity of tablet 00:00: mouth at [place] [address] bedtime. Medical Branch levETIRAcet 2021- No [id number] 1000mg Take 1 Univers am 1,000 mg 9-27 10-20 tablet by it y of tablet 00:00: 00:00 mouth in [place] 00 :00 the Medical morning Branch and 1 tablet in the evening. lidocaine 5 2021- No [id number] 1{patch Apply 1 Univers % (700 04-15 10-05 } Patch to ity of mg/patch) 00:00: 04:59 area(s) in [place] patch 00 :00 the Medical morning Branch for 7 days. HYDROcodone 2021- No [id number] 1{tbl} Take 1 U nivers [...] 12 Medical patch 1 Hours, Branch Patch [id number], Starting on Thu04/14/22 at 1645, Until Discontinu [...] 38.5 C, Temp > 37.5 C HYDROcodone 202- No 1{tbl} 1 tablet, Univers -acetaminop 04-14 Oral, ity of hen (NORCO) 21:29: 05:39 Q6HPRN, [place] 10-325 mg 02 :41 Starting Medica l tablet 1 on Thu Branch tablet 04/14/22 at 1629, Until 04/15/22 at 0039, Routine, Pain (scale 7-10), Pain (scale 4-6) sulfur 2021-0 202- No [id number] 5mL 5 mL, Univ ers hexafluorid 04-14 Intravenou i ty of e microsphr 16:45: 16:45 s, ONCE, 1 [place] (LUMASON) 00 :00 dose, On Medica l injection 5 Mon Branch mL 04/14/22 at 1145, Routine
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 medication : ABDULLA, AMER clopidogreL 2022-0 Yes 75mg 75 mg, Univ ers (PLAVIX) 75 04-14 Oral, ity of mg tablet 14:00: DAILY, [place] 75 mg 00 First dose Medical on [facility] 04/14/22 at 0900, Until Discontinu ed, Routine pantoprazol Yes 40mg 40 mg, Univ ers e 04-14 Oral, ity of (PROTONIX) 14:00: DAILY, [place] EC tablet 00 First dose Medi kwame 40 mg on [facility] 04/14/22 at 0900, Until Discontinu ed, Routine atorvastati Yes 40mg 40 mg, Univ ers n (LIPITOR) 04-14 Oral, QHS, it y of tablet 40 02:00: First [place] mg 00 on [facility] 04/13/22 at Branch 2100, Until Discontinu ed, Routine LORazepam 2021- No 1mg 1 mg, Univer s (ATIVAN) 04-14 Oral, ity of tablet 1 mg 01:30: 01:45 ONCE, 1 [place] 00 :00 dose, On [facility] 04/13/22 at 2030, Routine methocarbam 0 Yes 500mg 500 mg, Un lois oL 04-14 Oral, QID, ity of (ROBAXIN) 01:00: First dose [place] tablet 500 00 on [facility] mg 04/13/22 at Branch 2000, Until Discontinu ed, Routine heparin Yes 5000U 5,000 Univers (porcine) 04-14 Units, ity of injection 01:00: Subcutaneo [place] 5,000 Units 00 us, Q12H, Med ical First dose Branch on [place] 04/13/22 at 2000, Until Discontinu ed, Routine acetaminoph 2021- No 650mg 650 mg, U nivers en 04-14 Oral, ity of (TYLENOL) 00:23: 21:29 Q6HPRN, [place] tablet 650 25 :42 Starting Medic al mg on [facility] 04/13/22 at 1923, Until [facility] 04/14/22 at 1629, Routine, Pain (scale 1-3), Pain (scale 4-6), Temp > 38.5 C, Temp > 37.5 C lidocaine 2021- No 1{patch 1 Patch, Univers (LIDODERM) 04-14 } Topical, ity of 5 % (700 00:22: 13:51 Administer [place] mg/patch) 00 :00 over 12 Medical patch 1 Hours, Branch Patch ONCE, 1 dose, On [place] 04/13/22 at 1930, Routine FENTanyl PF 2021- No 50ug 50 mcg, Un lois (SUBLIMAZE 04-13 Slow IV ity o f (PF)) 20:30: 19:22 Push, [place] injection 00 :00 ONCE, 1 Medical 50 mcg dose, On Branch [place] 04/13/22 at 1530, Routine aspirin 2021- No 650mg 650 mg, Unive rs chewable 04-13 Oral, ity of tablet 650 20:15: 20:15 ONCE, 1 [place] mg 00 :00 dose, On Medical [facility] 04/13/22 at 1515, Routine clopidogreL 2021- No 300mg 300 mg, U nivers (PLAVIX) 04-13 Oral, ity of 300 mg 20:00: 19:15 ONCE, 1 [place] tablet 300 00 :00 dose, On Medic al mg [facility] 04/13/22 at 1500, Routine ondansetron 2021- No 4mg 4 mg, Slow Univers (ZOFRAN 04-13 IV Push, ity of (PF)) 19:30: 19:22 ONCE, 1 [place] injection 4 00 :00 dose, On Medi kwame mg [facility] 04/13/22 at 1430, MICHAEL iopamidol 2021- No [id number] 100mL 100 mL, Univers (ISOVUE 04-13 Intravenou ity o f 370-500 mL) 18:31: 18:32 s, ONCE, 1 [place] injection 00 :00 dose, On Medica l 100 mL [facility] 04/13/22 at 1345, Routine NaCl 0.9% Yes 5mL 5 mL, Slow Un lois (NS) 04-13 IV Push, ity of injection 5 18:14: PRN - SEE [place] mL 11 INSTRUCTIO Medical NS, Branch Starting on [place] 04/13/22 at 1314, Until Discontinu ed, 10 [...] 2022-0 No Unknown 3-06 00:00: 00 Wellbutrin 1-1 No 1mg XL 150 mg 2-30 24 hr 00:00: tablet, 00 extended release Dose 2020-1 No Unknown 2-30 00:00: 00 Wellbutrin 2020-07 [...] IV ity of succ 01:57: 02:11 Push, [place] (SOLU-MEDRO 00 :00 ONCE, 1 Medic al [...] IV ity of succ 01:57: 02:11 Push, [place] (SOLU-MEDRO 00 :00 ONCE, 1 Medic al [...] nebulizer solution 3 mL levoFLOXaci 2020- No [id number] 500mg Take 1 Univers n 500 mg 03-17 tablet by ity o f tablet 00:00: 04:59 mouth [place] 00 :00 daily for Medical 6 days. Branch levoFLOXaci 2020-0 2020- No [id number] 500mg Take 1 Univers n 500 mg 03-17 tablet by ity o f tablet 00:00: 04:59 mouth [place] 00 :00 daily for Medical 6 days. Branch levoFLOXaci 2020-0 2020- No [id number] 500mg Take 1 Univers n 500 mg 03-17 tablet by ity o f tablet 00:00: 04:59 mouth [place] 00 :00 daily for Medical 6 days. Branch levoFLOXaci No [id number] 500mg Take 1 Univers n 500 mg 03-17 tablet by ity o f tablet 00:00: 04:59 mouth [place] 00 :00 daily for Medical 6 days. Branch predniSONE 2020- No [id number] 30mg Take 3 Univers 10 mg 03-17 tablets by ity of tablet 00:00: 04:59 mouth [place] 00 :00 daily for Medical 4 days. Branch predniSONE 2020- No [id number] 30mg Take 3 Univers 10 mg 03-17 tablets by ity of tablet 00:00: 04:59 mouth [place] 00 :00 daily for Medical 4 days. Branch predniSONE No [id number] 30mg Take 3 Univers 10 mg 03-17 tablets by ity of tablet 00:00: 04:59 mouth [place] 00 :00 daily for Medical 4 days. Branch predniSONE No [id number] 30mg Take 3 Univers 10 mg 03-17 tablets by ity of tablet 00:00: 04:59 mouth [place] 00 :00 daily for Medical 4 days. Branch albuterol 2020- No [id number] 4{puff} 4 Puff, Univers (VENTOLIN) 03-15 Inhalation it y of inhaler 4 01:45: 00:44 , ONCE, 1 [place] Puff 00 :00 dose, [facility] 03/14/21 at [place] 2044, Routine dexamethaso No [id number] 10mg 10 mg, Univers ne 03-15 Intramuscu ity of (DECADRON) 01:45: 00:45 lar, ONCE, [place] injection 00 :00 1 dose, Medical 10 mg [facility] [place] 03/14/21 at 2044, Routine albuterol Yes [id number] 2.5mg Inhale 3 Univers 2.5 mg /3 03-15 mL every 4 ity of mL (0.083 00:00: (four) [place] %) 00 hours as Medical nebulizer needed for Bran ch solution Wheezing or Shortness of Breath. albuterol Yes [id number] 2.5mg Inhale 3 Univers 2.5 mg /3 8-27 mL every 4 ity of mL (0.083 00:00: ([facility]) [place] %) 00 hours as Medical nebulizer needed for Bran ch solution Wheezing or Shortness of Breath. albuterol 2020-0 Yes [id number] 2.5mg Inhale 3 Univers 2.5 mg /3 8-27 mL every 4 ity of mL (0.083 00:00: ([facility]) [place] %) 00 hours as Medical nebulizer needed for Bran ch solution Wheezing or Shortness of Breath. albuterol 2020-0 Yes [id number] 2.5mg Inhale 3 Univers 2.5 mg /3 8-27 mL every 4 ity of mL (0.083 00:00: ([facility]) [place] %) 00 hours as Medical nebulizer needed for Bran ch solution Wheezing or Shortness of Breath. albuterol 2020-0 Yes [id number] 2.5mg Inhale 3 Univers 2.5 mg /3 8-27 mL every 4 ity of mL (0.083 00:00: ([facility]) [place] %) 00 hours as Medical nebulizer needed for Bran ch solution Wheezing or Shortness of Breath. albuterol 2020-0 Yes [id number] 2.5mg Inhale 3 Univers 2.5 mg /3 8-27 mL every 4 ity of mL (0.083 00:00: ([facility]) [place] %) 00 hours as Medical nebulizer needed for Bran ch solution Wheezing or Shortness of Breath. albuterol 2020-0 Yes [id number] 2.5mg Inhale 3 Univers 2.5 mg /3 8-27 mL every 4 ity of mL (0.083 00:00: ([facility]) [place] %) 00 hours as Medical nebulizer needed for Bran ch solution Wheezing or Shortness of Breath. albuterol 2020-0 Yes [id number] 2.5mg Inhale 3 Univers 2.5 mg /3 8-27 mL every 4 ity of mL (0.083 00:00: ([facility]) [place] %) 00 hours as Medical nebulizer needed for Bran ch solution Wheezing or Shortness of Breath. albuterol 2020-0 Yes [id number] 2.5mg Inhale 3 Univers 2.5 mg /3 8-27 mL every 4 ity of mL (0.083 00:00: (four) [place] %) 00 hours as Medical nebulizer needed for Bran ch solution Wheezing or Shortness of Breath. albuterol 2020-0 Yes [id number] 2.5mg Inhale 3 Univers 2.5 mg /3 8-27 mL every 4 ity of mL (0.083 00:00: (four) [place] %) 00 hours as Medical nebulizer needed for Bran ch solution Wheezing or Shortness of Breath. albuterol 2020-0 Yes [id number] 2.5mg Inhale 3 Univers 2.5 mg /3 8-27 mL every 4 ity of mL (0.083 00:00: (four) [place] %) 00 hours as Medical nebulizer needed for Bran ch solution Wheezing or Shortness of Breath. albuterol 2020-0 Yes [id number] 2.5mg Inhale 3 Univers 2.5 mg /3 8-27 mL every 4 ity of mL (0.083 00:00: (four) [place] %) 00 hours as Medical nebulizer needed for Bran ch solution Wheezing or Shortness of Breath. albuterol 2020-0 Yes [id number] 2.5mg Inhale 3 Univers 2.5 mg /3 8-27 mL every 4 ity of mL (0.083 00:00: (four) [place] %) 00 hours as Medical nebulizer needed for Bran ch solution Wheezing or Shortness of Breath. albuterol 2020-0 Yes [id number] 2.5mg Inhale 3 Univers 2.5 mg /3 8-27 mL every 4 ity of mL (0.083 00:00: (four) [place] %) 00 hours as Medical nebulizer needed for Bran ch solution Wheezing or Shortness of Breath. levETIRAcet 2020-0 2020- No 1000mg 1,000 mg, Univers am (KEPPRA) 02-19 08-03 IV ity of in NACL 20:15: 19:30 [place], [place] (ISO-OS) 00 :00 ONCE, 1 Medical 1,000 dose, Tue Branch mg/100 mL 02/19/21 at RTU 1515, Administer over 15 Minutes, 100 mL levetiracet 2020-0 Yes Take by Uni vers am (KEPPRA 02-19 mouth. ity of ORAL) 19:45: [address] levetiracet Yes Take by Uni vers am (KEPPRA 8-03 mouth. ity of ORAL) 19:45: [address] levetiracet 0 Yes Take by Uni vers am (KEPPRA 8-03 mouth. ity of ORAL) 19:45: [address] levetiracet 0 Yes Take by Uni vers am (KEPPRA 8-03 mouth. ity of ORAL) 19:45: [address] levetiracet 0 Yes Take by Uni vers am (KEPPRA 8-03 mouth. ity of ORAL) 19:45: [address] levetiracet Yes Take by Uni vers am (KEPPRA 8-03 mouth. ity of ORAL) 19:45: [address] LISINOPRIL- 2020- No Take by Un lois HYDROCHLORO 02-19 mouth. ity o f THIAZIDE 19:41: 00:00 [place] ORAL 15 :00 [facility] dicyclomine 2020- No 20mg 20 mg, Uni vers (BENTYL) 02-19 Intramuscu ity of injection 19:15: 19:04 lar, ONCE, [place] 20 mg 00 :00 1 dose, Medical [facility] 02/19/21 Branch at 1415, Routine proMETHazin 2020- No 25mg 25 mg, IV Univers e 02-19 Piggyback, ity of (PHENERGAN) 19:15: 19:03 ONCE, 1 [place] 25 mg in 00 :00 [facility]% 02[facility]19/21 at [facility] h (NS) 50 mL 1415, 50 piggyback mL morpHINE 2020- No 4mg 4 mg, Slow Un lois injection 4 02-19 IV Push, ity of mg 17:15: 17:05 ONCE, 1 [place] 00 :00 dose, [facility] 02/19/21 at Branch 1215, STAT NaCl 0.9% 2020- No 1000mL at 999 Uni vers (NS) bolus 8-03 08-03 mL/hr, ity of infusion 17:15: 19:04 1,000 mL, [place] 1,000 mL 00 :00 IV Medical Infusion, [place] ONCE, 1 dose, 02/19/21 at 1215, STAT ondansetron 2020- No 4mg 4 mg, Slow Univers (ZOFRAN 02-19 IV Push, ity of (PF)) 17:00: 15:59 ONCE, 1 [place] injection 4 00 :00 dose, Tue Med ical mg 02/19/21 at Branch 1200, MICHAEL iopamidol 2021- No [id number] 100mL 100 mL, Univers (ISOVUE 02-19 08 Intravenou ity o f 370-500 mL) 16:35: 16:45 s, ONCE, 1 [place] injection 00 :00 dose, Tue Medic al 100 mL 02/19/21 at Branch 1145, Routine levetiracet Yes Take by Uni vers am (KEPPRA 8-03 mouth. ity of ORAL) 14:45: [address] levetiracet Yes Take by Uni vers am (KEPPRA 8-03 mouth. ity of ORAL) 14:45: [address] levetiracet 0 Yes Take by Uni vers am (KEPPRA 8-03 mouth. ity of ORAL) 14:45: [address] levetiracet Yes Take by Uni vers am (KEPPRA 8-03 mouth. ity of ORAL) 14:45: [address] levetiracet 0 Yes Take by Uni vers am (KEPPRA 8-03 mouth. ity of ORAL) 14:45: [address] proMETHazin Yes [id number] 25mg Take 1 Univers e 25 mg 8-03 tablet by ity of tablet 00:00: mouth [place] 00 every 6 Medical (six) Branch hours as needed for Nausea and Vomiting (N/V). dicyclomine Yes [id number] 20mg Take 1 Univers 20 mg 8-03 tablet by ity of tablet 00:00: mouth 4 [place] 00 (four) Medical times Branch daily as needed for Abdominal pain. proMETHazin 2021-0 Yes [id number] 25mg Take 1 Univers e 25 mg 8-03 tablet by ity of tablet 00:00: mouth [place] 00 every 6 Medical (six) Branch hours as needed for Nausea and Vomiting (N/V). dicyclomine 2020-0 Yes [id number] 20mg Take 1 Univers 20 mg 8-03 tablet by ity of tablet 00:00: mouth 4 [place] 00 (four) Medical times Branch daily as needed for Abdominal pain. proMETHazin 2020-0 Yes [id number] 25mg Take 1 Univers e 25 mg 8-03 tablet by ity of tablet 00:00: mouth [place] 00 every 6 Medical (six) Branch hours as needed for Nausea and Vomiting (N/V). dicyclomine 2020-0 Yes [id number] 20mg Take 1 Univers 20 mg 8-03 tablet by ity of tablet 00:00: mouth 4 [place] 00 (four) Medical times Branch daily as needed for Abdominal pain. proMETHazin 2020-0 Yes [id number] 25mg Take 1 Univers e 25 mg 8-03 tablet by ity of tablet 00:00: mouth [place] 00 every 6 Medical (six) Branch hours as needed for Nausea and Vomiting (N/V). dicyclomine 2020-0 Yes [id number] 20mg Take 1 Univers 20 mg 8-03 tablet by ity of tablet 00:00: mouth 4 [place] 00 (four) Medical times Branch daily as needed for Abdominal pain. proMETHazin 2020-0 Yes [id number] 25mg Take 1 Univers e 25 mg 8-03 tablet by ity of tablet 00:00: mouth [place] 00 every 6 Medical (six) Branch hours as needed for Nausea and Vomiting (N/V). dicyclomine 2020-0 Yes [id number] 20mg Take 1 Univers 20 mg 8-03 tablet by ity of tablet 00:00: mouth 4 [place] 00 (four) Medical times Branch daily as needed for Abdominal pain. proMETHazin 2020-0 Yes [id number] 25mg Take 1 Univers e 25 mg 8-03 tablet by ity of tablet 00:00: mouth [place] 00 every 6 Medical (six) Branch hours as needed for Nausea and Vomiting (N/V). dicyclomine 2020-0 Yes [id number] 20mg Take 1 Univers 20 mg 8-03 tablet by ity of tablet 00:00: mouth (four) Medical times Branch daily as needed for Abdominal pain. proMETHazin 2020-0 Yes [id number] 25mg Take 1 Univers e 25 mg 8-03 tablet by ity of tablet 00:00: mouth [place] 00 every 6 Medical (six) Branch hours as needed for Nausea and Vomiting (N/V). dicyclomine 2020-0 Yes [id number] 20mg Take 1 Univers 20 mg 8-03 tablet by ity of tablet 00:00: mouth (four) Medical times Branch daily as needed for Abdominal pain. proMETHazin 2020-0 Yes [id number] 25mg Take 1 Univers e 25 mg 8-03 tablet by ity of tablet 00:00: mouth 00 every 6 Medical (six) Branch hours as needed for Nausea and Vomiting (N/V). dicyclomine 2020-0 Yes [id number] 20mg Take 1 Univers 20 mg 8-03 tablet by ity of tablet 00:00: mouth (four) Medical times Branch daily as needed for Abdominal pain. proMETHazin 2020-0 Yes [id number] 25mg Take 1 Univers e 25 mg 8-03 tablet by ity of tablet 00:00: mouth [place] 00 every 6 Medical (six) Branch hours as needed for Nausea and Vomiting (N/V). dicyclomine 2020-0 Yes [id number] 20mg Take 1 Univers 20 mg 8-03 tablet by ity of tablet 00:00: mouth (four) Medical times Branch daily as needed for Abdominal pain. proMETHazin 2020-0 Yes [id number] 25mg Take 1 Univers e 25 mg 8-03 tablet by ity of tablet 00:00: mouth [place] 00 every 6 Medical (six) Branch hours as needed for Nausea and Vomiting (N/V). dicyclomine 2021-0 Yes [id number] 20mg Take 1 Univers 20 mg 8-03 tablet by ity of tablet 00:00: mouth (four) Medical times Branch daily as needed for Abdominal pain. proMETHazin 2020-0 Yes [id number] 25mg Take 1 Univers e 25 mg 8-03 tablet by ity of tablet 00:00: mouth [place] 00 every 6 Medical (six) Branch hours as needed for Nausea and Vomiting (N/V). dicyclomine 2020-0 Yes [id number] 20mg Take 1 Univers 20 mg 8-03 tablet by ity of tablet 00:00: mouth (four) Medical times Branch daily as needed for Abdominal pain. proMETHazin 2020-0 Yes [id number] 25mg Take 1 Univers e 25 mg 8-03 tablet by ity of tablet 00:00: mouth [place] 00 every 6 Medical (six) Branch hours as needed for Nausea and Vomiting (N/V). dicyclomine 2020-0 Yes [id number] 20mg Take 1 Univers 20 mg 8-03 tablet by ity of tablet 00:00: mouth (four) Medical times Branch daily as needed for Abdominal pain. proMETHazin 2020-0 Yes [id number] 25mg Take 1 Univers e 25 mg 8-03 tablet by ity of tablet 00:00: mouth [place] 00 every 6 Medical (six) Branch hours as needed for Nausea and Vomiting (N/V). dicyclomine 2020-0 Yes [id number] 20mg Take 1 Univers 20 mg 8-03 tablet by ity of tablet 00:00: mouth (four) Medical times Branch daily as needed for Abdominal pain. proMETHazin 2020-0 Yes [id number] 25mg Take 1 Univers e 25 mg 8-03 tablet by ity of tablet 00:00: mouth [place] 00 every 6 Medical (six) Branch hours as needed for Nausea and Vomiting (N/V). dicyclomine 2020-0 Yes [id number] 20mg Take 1 Univers 20 mg 8-03 tablet by ity of tablet 00:00: mouth (four) Medical times Branch daily as needed for Abdominal pain. proMETHazin 0 Yes [id number] 25mg Take 1 Univers e 25 mg 8-03 tablet by ity of tablet 00:00: mouth [place] 00 every 6 Medical (six) Branch hours as needed for Nausea and Vomiting (N/V). dicyclomine 2020-0 Yes [id number] 20mg Take 1 Univers 20 mg 8-03 tablet by ity of tablet 00:00: mouth (four) Medical times Branch daily as needed for Abdominal pain. ZONISAMIDE 2018-0 Yes TAKE 1 Unive rs 100 mg 4-29 CAPSULE BY ity of capsule 00:00: MOUTH 00 TWICE A Medical DAY Branch ZONISAMIDE 2018-2020- No TAKE 1 Univ ers 100 mg 11-15 CAPSULE BY ity of capsule 00:00: 00:00 MOUTH [place] 00 :00 TWICE A Medical DAY Branch ondansetron 2018-0 Yes 4mg Take 4 mg U nivers (ZOFRAN) 4 7-24 by mouth ity o f mg tablet 20:05: every 8 [place] [address] (eight) Medical hours as Branch needed. pantoprazol 2018-0 Yes 40mg Take 40 mg Univers e 7-24 by mouth ity of (PROTONIX) 20:05: daily. [place] 40 mg EC Medical tablet Branch ondansetron 2017-0 Yes 4mg Take 4 mg U nivers (ZOFRAN) 4 7-24 by mouth ity o f mg tablet 20:05: every 8 [place] [address] (eight) Medical hours as Branch needed. pantoprazol 2018-0 Yes 40mg Take 40 mg Univers e 7-24 by mouth ity of (PROTONIX) 20:05: daily. [place] 40 mg EC Medical tablet Branch LISINOPRIL- 2017-0 Yes Take by Uni vers HYDROCHLORO 7-24 mouth. ity of THIAZIDE 20:05: [place] ORAL Medical Branch ondansetron 2018-0 Yes 4mg Take 4 mg U nivers (ZOFRAN) 4 7-24 by mouth ity o f mg tablet 20:05: every 8 [place] [address] (eight) Medical hours as Branch needed. pantoprazol 2018-0 Yes 40mg Take 40 mg Univers e 7-24 by mouth ity of (PROTONIX) 20:05: daily. [place] 40 mg EC Medical tablet Branch ondansetron 2018-0 Yes 4mg Take 4 mg U nivers (ZOFRAN) 4 7-24 by mouth ity o f mg tablet 20:05: every 8 [place] [address] (eight) Medical hours as Branch needed. pantoprazol 2018-0 Yes 40mg Take 40 mg Univers e 7-24 by mouth ity of (PROTONIX) 20:05: daily. [place] 40 mg EC Medical tablet Branch ondansetron 2018-0 Yes 4mg Take 4 mg U nivers (ZOFRAN) 4 7-24 by mouth ity o f mg tablet 20:05: every 8 [place] [address] (eight) Medical hours as Branch needed. pantoprazol [...] 7-24 by mouth ity of 19:58: daily. [place] 14 Medical Branch loratadine 0 Yes Take by Univ ers (CLARITIN 7-24 mouth ity of LIQUI-GEL) 19:58: daily. [place] 10 mg 14 Medical capsule Branch MULTIVITAMI 2018-0 Yes 1{tbl} Take 1 Tab Univers N ORAL 7-24 by mouth ity of 19:58: daily. [place] [address] Medical Branch loratadine Yes Take by Univ ers (CLARITIN 7-24 mouth ity of LIQUI-GEL) 19:58: daily. [place] 10 mg 14 Medical capsule Branch MULTIVITAMI Yes 1{tbl} Take 1 Tab Univers N ORAL 7-24 by mouth ity of 19:58: daily. [place] [address] Medical Branch loratadine Yes Take by Univ ers (CLARITIN 7-24 mouth ity of LIQUI-GEL) 19:58: daily. [place] 10 mg 14 Medical capsule Branch MULTIVITAMI Yes 1{tbl} Take 1 Tab Univers N ORAL 7-24 by mouth ity of 19:58: daily. [place] [address] Medical Branch loratadine Yes Take by Univ ers (CLARITIN 7-24 mouth ity of LIQUI-GEL) 19:58: daily. [place] 10 mg 14 Medical capsule Branch MULTIVITAMI Yes 1{tbl} Take 1 Tab Univers N ORAL 7-24 by mouth ity of 19:58: daily. [place] [address] Medical Branch loratadine Yes Take by Univ ers (CLARITIN 7-24 mouth ity of LIQUI-GEL) 19:58: daily. [place] 10 mg 14 Medical capsule Branch MULTIVITAMI Yes 1{tbl} Take 1 Tab Univers N ORAL 7-24 by mouth ity of 19:58: daily. [place] [address] Medical Branch loratadine Yes Take by [facility] ers (CLARITIN 7-24 mouth ity of LIQUI-GEL) 19:58: daily. [place] 10 mg 14 Medical capsule Branch MULTIVITAMI Yes 1{tbl} Take 1 Tab Univers N ORAL 7-24 by mouth ity of 19:58: daily. [place] [address] Medical Branch loratadine Yes Take by Univ ers (CLARITIN 7-24 mouth ity of LIQUI-GEL) 19:58: daily. [place] 10 mg 14 Medical capsule Branch ondansetron Yes 4mg Take 4 mg U nivers (ZOFRAN) 4 7-24 by mouth ity o f mg tablet 15:05: every 8 [place] 01 (eight) Medical hours as Branch needed. [...] (PROTONIX) 15:05: daily. [place] 40 mg EC Medical tablet [...] 14:58: daily. [place] 14 Medical Branch loratadine Yes Take by [facility] ers (CLARITIN 7-24 mouth ity of LIQUI-GEL) 14:58: daily. [place] 10 mg 14 Medical capsule Branch MULTIVITAMI Yes 1{tbl} Take 1 Tab Univers N ORAL 7-24 by mouth ity of 14:58: daily. [place] [address] Medical Branch loratadine Yes Take by [facility] ers (CLARITIN 7-24 mouth ity of LIQUI-GEL) 14:58: daily. [place] 10 mg 14 Medical capsule Branch MULTIVITAMI Yes 1{tbl} Take 1 Tab Univers N ORAL 7-24 by mouth ity of 14:58: daily. [place] [address] Medical Branch loratadine Yes Take by [facility] ers (CLARITIN 7-24 mouth ity of LIQUI-GEL) 14:58: daily. [place] 10 mg 14 Medical capsule Branch MULTIVITAMI Yes 1{tbl} Take 1 Tab Univers N ORAL 7-24 by mouth ity of 14:58: daily. [place] [address] Medical Branch loratadine Yes Take by [facility] ers (CLARITIN 7-24 mouth ity of LIQUI-GEL) [...] Immunization Date Status Comments [facility] Branch e Immunization Name Name SARS-COV-2 COVID-19 2022-02-19 Completed Unive rsity of PFIZER BA-SUCROSE 00:00:00 [place] Medical VACCINE (ROSE TOP) Branch SARS-COV-2 COVID-19 2022-02-19 Completed Unive rsity of PFIZER BA-SUCROSE 00:00:00 [place] Medical VACCINE (ROSE TOP) Branch SARS-COV-2 COVID-19 2022-02-19 Completed Unive rsity of PFIZER BA-SUCROSE 00:00:00 [place] Medical VACCINE (ROSE TOP) Branch SARS-COV-2 COVID-19 2022-02-19 Completed Unive rsity of PFIZER BA-SUCROSE 00:00:00 [place] Medical VACCINE (ROSE TOP) Branch SARS-COV-2 COVID-19 2022-02-19 Completed Unive rsity of PFIZER BA-SUCROSE 00:00:00 [place] Medical VACCINE (ROSE TOP) Branch SARS-COV-2 COVID-19 [...] VACCINE 00:00:[address] [facility] SARS-COV-2 COVID-19 2021-05-24 Completed Unive rsity of PFIZER VACCINE 00:00:00 [facility] Branch SARS-COV-2 COVID-19 2021-05-03 Completed Unive rsity of PFIZER VACCINE 00:00:[address] [facility] SARS-COV-2 COVID-19 2021-05-03 Completed Unive rsity of PFIZER VACCINE 00:00:[address] [facility] SARS-COV-2 COVID-19 2021-05-03 Completed Unive rsity of PFIZER VACCINE 00:00:[address] [facility] SARS-COV-2 COVID-19 2021-05-03 Completed Unive rsity of PFIZER VACCINE 00:00:[address] [facility] SARS-COV-2 COVID-19 2021-05-03 Completed Unive rsity of PFIZER VACCINE 00:00:[address] [facility] SARS-COV-2 COVID-19 2021-05-03 Completed Unive rsity of PFIZER VACCINE 00:00:[address] [facility] SARS-COV-2 COVID-19 2021-05-03 Completed Unive rsity of PFIZER VACCINE 00:00:[address] [facility] SARS-COV-2 COVID-19 2021-05-03 Completed Unive rsity of PFIZER VACCINE 00:00:[address] [facility] Vital Signs Vital Name Observation Time Observation Value Comments Source Heart rate 2022-08-02 02:02:00 108 /min [facility] Respiratory rate 2022-08-02 02:02:00 28 /min [facility] [place] [place] Oxygen saturation in 2022-08-02 02:02:00 97 /min [facility] Arterial blood by [facility] Pulse oximetry [place] Body temperature 2022-08-02 01:00:00 36.44 Radha Univ ersity of [facility] Systolic blood 2022-08-01 23:29:00 145 mm[Hg] Univer sity of pressure [facility] Diastolic blood 2022-08-01 23:29:00 103 mm[Hg] Unive rsity of pressure [facility] Body weight 2022-08-01 09:16:00 97.977 kg [facility] BMI 2022-08-01 09:16:00 38.26 kg/m2 [facility] Body height 2022-07-31 21:54:00 160 cm [facility] Systolic blood 2022-05-08 16:40:00 146 mm[Hg] Univer sity of pressure [facility] Diastolic blood 2022-05-08 16:40:00 96 mm[Hg] Unive rsity of pressure [facility] Heart rate 2022-05-08 16:40:00 112 /min [facility] Body temperature 2022-05-08 16:40:00 36.78 Radha [facility] Respiratory rate 2022-05-08 16:40:00 18 /min [facility] Oxygen saturation in 2022-05-08 16:40:00 94 /min [facility] of Arterial blood by [facility] kwame Pulse oximetry Branch Body height 2022-05-05 23:44:00 160 cm [facility] Body weight 2022-05-05 23:37:00 81.647 kg [facility] BMI 2022-05-05 23:37:00 31.89 kg/m2 [facility] Systolic blood 2022-04-15 18:52:00 104 mm[Hg] [facility] Diastolic blood 2022-04-15 18:52:00 82 mm[Hg] Unive rsity of [facility] Heart rate 2022-04-15 18:52:00 114 /min [facility] Oxygen saturation in 2022-04-15 18:52:00 98 /min University of Arterial blood by [facility] Pulse oximetry Branch Body temperature 2022-04-15 16:14:00 36.28 Radha [facility] Respiratory rate 2022-04-15 16:14:00 17 /min [facility] Body height 2022-04-13 21:08:00 160 cm [facility] Body weight 2022-04-13 21:08:00 91.173 kg [facility] BMI 2022-04-13 21:08:00 35.61 kg/m2 [facility] Systolic blood 2021-11-23 21:30:00 132 mm[Hg] Univer [facility] pressure [facility] Diastolic blood 2021-11-23 21:30:00 76 mm[Hg] Unive rsity of pressure [facility] Heart rate 2021-11-23 21:30:00 95 /min [facility] Respiratory rate 2021-11-23 21:30:00 13 /min [facility] Oxygen saturation in 2021-11-23 21:30:00 97 /min [facility] Arterial blood by [facility] Pulse oximetry Branch Body temperature 2021-11-23 20:15:00 37.56 Radha [facility] Systolic blood 2021-03-17 03:00:00 117 mm[Hg] [facility] Diastolic blood 2021-03-17 03:00:00 76 mm[Hg] [facility]ive [facility] Heart rate 2021-03-17 03:00:00 104 /min [facility] Respiratory rate 2021-03-17 03:00:00 28 /min [facility] Oxygen saturation in 2021-03-17 03:00:00 96 /min [facility] of Arterial blood by [facility] Pulse oximetry Branch Body temperature 2021-03-17 00:39:00 37.11 Radha [facility] Body height 2021-03-17 00:39:00 160 cm [facility] Body weight 2021-03-17 00:39:00 58.968 kg [facility] BMI 2021-03-17 00:39:00 23.03 kg/m2 [facility] Systolic blood 2021-03-15 00:14:00 149 mm[Hg] [facility] Diastolic blood 2021-03-15 00:14:00 78 mm[Hg] Unive rsity of [facility] Heart rate 2021-03-15 00:14:00 100 /min [facility] Body temperature 2021-03-15 00:14:00 37.33 Radha [facility] Respiratory rate 2021-03-15 00:14:00 24 /min [facility] Body height 2021-03-15 00:14:00 160 cm [facility] Body weight 2021-03-15 00:14:00 58.968 kg [facility] BMI 2021-03-15 00:14:00 23.03 kg/m2 [facility] Oxygen saturation in 2021-03-15 00:14:00 98 /min [facility] [place] [facility] Systolic blood 2021-02-19 18:00:00 131 mm[Hg] Univer sity of pressure [facility] Diastolic blood 2021-02-19 18:00:00 80 mm[Hg] Unive rsity of [facility] Heart rate 2021-02-19 18:00:00 83 /min Universi [facility] Respiratory rate 2021-02-19 18:00:00 18 /min [facility] [place] [place] O[facility] saturation in 2021-02-19 18:00:00 100 /min University of Arterial blood by [facility] Pulse oximetry Branch Body temperature 2021-02-19 15:47:00 37 Radha [facility] Body height 2021-02-19 15:47:00 160 cm [facility] Body weight 2021-02-19 15:47:00 58.968 kg [facility] BMI 2021-02-19 15:47:00 23.03 kg/m2 [facility] Respiratory rate 2022-08-03 14:40:00 18 /min [facility] Systolic blood 2022-08-03 12:13:00 112 mm[Hg] [facility] Diastolic blood 2022-08-03 12:13:00 77 mm[Hg] [facility] Heart rate 2022-08-03 12:13:00 115 /min [facility] Oxygen saturation in 2022-08-03 12:13:00 93 /min [facility] Arterial blood by Medical Ce nter Pulse oximetry Body temperature 2022-08-03 12:00:00 36.83 Radha [facility] Body height 2022-08-02 21:52:[address] [facility] Body weight 2022-08-02 21:52:[address] [facility] BMI 2022-08-02 21:52:00 37.02 kg/m2 [facility] BP Systolic 2022-07-24 13:31:00 136 mm[Hg] BP [...] Performed ECG 12-LEAD 2022-08-03 Unknown, Hl7 Doctor [facility] 05:03:32 [facility] ECG 12-LEAD 2022-08-03 Unknown, Hl7 Doctor [facility] 05:03:32 [facility] ECG 12-LEAD 2022-08-03 Unknown, Hl7 [facility] 05:03:32 [facility] LIPID PANEL 2022-08-[address] [facility] 21:14:00 [facility] TSH/FREE T4 IF INDICATED 2022-08-02 Donaldo Hightower [facility] 21:14:00 [facility] VITAMIN B12 2022-08-[address] [facility] 21:14:00 [facility] HEMOGLOBIN A1C 2022-08-[address] [facility] 21:14:00 [facility] COMPREHENSIVE METABOLIC PANEL 2022-08-02 Donaldo Hightower [facility] 21:14:00 [facility] CBC W/PLT COUNT & AUTO 2022-08-02 Donaldo Hightower [facility] DIFFERENTIAL 21:14:00 [facility] RPR 2022-08-[address] [facility] 21:14:00 [facility] HC LAB HIV-1 AG W/HIV-1&2 AB 2022-08-[address] [facility] 21:14:00 [facility] C-REACTIVE PROTEIN 2022-08-[address] [facility] 21:14:00 [facility] CBC W/PLT COUNT & AUTO 2022-08-02 Donaldo Hightower [facility] DIFFERENTIAL 21:14:00 [facility] EKG-SCANNED 2022-08-02 [facility]z [facility] Sc[facility] CT HEAD WO CONTRAST 2022-08-01 Lloyd [facility] o f 23:52:15 [facility] GALV ONLY - INFLUENZA A B RSV 2022-08-01 Nwokedi, Letitia Un iversity of PCR 18:28:00 [facility] TRANSTHORACIC ECHO (TTE) 2022-08-01 [facility] ity of COMPLETE W/ CONTRAST 14:42:00 [facility] al Branch MAGNESIUM 2022-08-01 Lorenza Her [place] of 10:42:00 [facility] BASIC METABOLIC PANEL (NA, K, 2022-08-01 Lorenza Her iversity of CL, CO2, GLUCOSE, BUN, 10:42:00 [facility] ical CREATININE, CA) Branch CBC WITH DIFF 2022-08-01 LloydLorenza [place] of 10:42:00 [facility] N-TERMINAL PRO-BNP 2022-08-01 Tc [facility] of 10:42:00 [facility] POCT GLUCOSE (AUTOMATED) 2022-08-01 Lorenza Her [facility] ity of 06:56:00 [facility] CRITICAL CARE 2022-07-31 Sav Rondon of 22:31:36 [facility] URINALYSIS 2022-07-31 Sav Rondon of 20:52:00 [facility] URINE DRUG (IMMUNOASSAY) - 2022-07-31 Sav [facility]ondon [facility] rs[facility] of COMPREHENSIVE DRUG SCREEN W/O 20:52[place]00 [place] [facility] REFLEX Branch XR CHEST 1 VW 2022-07-31 Sav Rondon of 18:45:17 [facility] LIPASE 2022-07-31 Sav Rondon of 17:58:00 [facility] TROPONIN I 2022-07-31 Sav Rondon of 17:58:00 [facility] COMP. METABOLIC PANEL ([id number]) 2022-07-31 Sav Rondon iversity of 17:58:00 [facility] CBC WITH DIFF 2022-07-31 Sav Rondon of 17:58:00 [facility] PROTHROMBIN TIME / INR 2022-07-31 Sav Rondonit y of 17:58:00 [facility] ACTIVATED PARTIAL THRMPLAS 2022-07-31 Sav Rondon rsity of DAVID 17:58:00 [facility] N-TERMINAL PRO-BNP 2022-07-31 Sav Rondon of 17:58:00 [facility] HB ECG ROUTINE & RHYTHM STRIP 2022-07-31 Rondon, Sav Un iversity of 17:46:28 [facility] NOTICE OF PRIVACY PRACTICES 2022-07-31 Doctor Unassigned, U niversity of 17:35:38 [facility] CONSENT/REFUSAL FOR DIAGNOSIS 2022-07-31 Doctor Unassigned, University of AND TREATMENT 17:35:13 [facility] PHOSPHORUS 2022-05-08 Shefali [facility] of 05:51:00 [facility] MAGNESIUM 2022-05-08 [facility] of 05:51:00 [facility] BASIC METABOLIC PANEL (NA, K, 2022-05-08 RajatCelestino Stinnett U niversity of CL, CO2, GLUCOSE, BUN, 05:51:00 [place] [facility] CREATININE, CA) Branch CBC WITH DIFF 2022-05-08 [facility] of 05:51:00 [facility] BASIC METABOLIC PANEL (NA, K, 2022-05-07 [facility] of CL, CO2, GLUCOSE, BUN, 07:09:00 [facility] ica CREATININE, CA) Branch CBC WITH DIFF 2022-05-07 [facility] of 07:09:00 [facility] POCT GLUCOSE (AUTOMATED) 2022-05-07 Brandyn Mcfarlane ity of 01:16:00 [facility] HB ABO GROUPING 2022-05-06 Shaun [facility] of 05:07:00 Nancy [facility] BASIC METABOLIC PANEL (NA, K, 2022-05-06 Shefali Azeem U niversity of CL, CO2, GLUCOSE, BUN, 05:04:00 [place] [facility] CREATININE, CA) Branch CBC WITH DIFF 2022-05-06 [facility] of 05:04:00 [facility] KEPPRA (LEVETIRACETAM) 2022-05-06 Shefali Azeem [facility] ty of 05:04:00 [facility] MR LUMBAR SPINE WO CONTRAST 2022-05-06 Kneedler, Ender U niversity of 02:54:37 Porteropher [facility] ELECTROENCEPHALOGRAM 2022-05-06 [facility] [facility] ty of 00:00:00 [facility] BASIC METABOLIC PANEL (NA, K, 2022-05-05 [facility] of CL, CO2, GLUCOSE, BUN, 07:57:00 [facility] ical CREATININE, CA) Branch CBC WITH DIFF 2022-05-05 [facility] of 07:57:00 [facility] PROTHROMBIN TIME / INR 2022-05-05 [facility] ersity of 07:57:00 [facility] ACTIVATED PARTIAL THRMPLAS 2022-05-05 [facility] of DAVID 07:57:00 [facility] FIBRINOGEN 2022-05-05 [facility] of 07:57:00 [facility] EMERGENCY SERVICES AGREEMENTS 2022-05-04 Doctor Unassigned, University of AND AUTHORIZATIONS 05:01:[address] [facility] VITAMIN D, 25-OH 2022-04-15 Sen [place] of 16:53:00 [facility] MR THORACIC SPINE WO CONTRAST 2022-04-15 Soumya Chua Un iversity of 11:56:19 [facility] MR CERVICAL SPINE WO CONTRAST 2022-04-15 [facility] Un iversity of 11:20:00 [facility] BASIC METABOLIC PANEL (NA, K, 2022-04-15 Charmaine Morataya Un iversity of CL, CO2, GLUCOSE, BUN, 10:36:00 [facility] ical CREATININE, CA) Branch TEST, URINE 2022-04-15 [facility] of 04:39:00 [facility] URINE DRUG (IMMUNOASSAY) - 2022-04-15 [facility] rsity of COMPREHENSIVE DRUG SCREEN 04:39:00 [facility] URINALYSIS 2022-04-15 [facility] of 04:39:00 [facility] TRANSTHORACIC ECHO (TTE) 2022-04-14 [facility] ity of COMPLETE W/ CONTRAST 16:37:03 [facility] KEPPRA (LEVETIRACETAM) 2022-04-14 [facility] of 15:30:00 [facility] MAGNESIUM 2022-04-14 [facility] of 10:03:00 [facility] BASIC METABOLIC PANEL (NA, K, 2022-04-14 HarshilSoumya Un iversity of CL, CO2, GLUCOSE, BUN, 10:03:00 [place] [facility] CREATININE, CA) Branch MR LUMBAR SPINE WO CONTRAST 2022-04-14 Harshil Banner ersity of 02:48:12 [facility] MR STROKE BRAIN WO CONTRAST 2022-04-14 Harshil Banner ersity of 02:29:00 [facility] CT STROKE ANGIOGRAM HEAD 2022-04-13 Sapna Vargas [facility] ersity of 18:40:00 [facility] CT STROKE ANGIOGRAM NECK 2022-04-13 Sapna Vargas [facility] ersity of 18:40:00 [facility] CT STROKE HEAD WO CONTRAST 2022-04-13 Sapna Vargas iversity of 18:36:00 [facility] TROPONIN I 2022-04-13 Sapna Vargas [place] of 18:17:00 [facility] THYROID STIMULATING HORMONE 2022-04-13 Harshil Banner ersity of 18:17:00 [facility] BASIC METABOLIC PANEL (NA, K, 2022-04-13 Sapna Vargas [place] of CL, CO2, GLUCOSE, BUN, 18:17:00 [place] [facility] CREATININE, CA) Branch LIPID PANEL ([id number])(TOTAL 2022-04-13 Soumya Chua [facility] sity of CHOLESTEROL, TRIGLYCERIDES, 18:17:00 [facility] HDL) Branch CBC WITHOUT DIFF 2022-04-13 Sapna Vargas [place] o f 18:17:00 [facility] GLYCOSYLATED HEMOGLOBIN (A1C) 2022-04-13 Soumya Chua Un iversity of 18:17:00 [facility] PROTHROMBIN TIME / INR 2022-04-13 Sapna Vargas [facility] sity of 18:17:00 [facility] ACTIVATED PARTIAL THRMPLAS 2022-04-13 Sapna Vargas iversity of DAVID 18:17:00 [facility] COVID-19 (ID NOW RAPID 2022-04-13 Sapna Vargas [facility] sity of TESTING) 18:17:00 [facility] LAB ONLY COVID INTERPRETATION 2022-04-13 Sapna Vargas [place] of 18:17:00 [facility] HB ECG ROUTINE & RHYTHM STRIP 2022-04-13 Sapna Vargas [facility] 18:15:49 [facility] CONSENT/REFUSAL FOR DIAGNOSIS 2022-04-13 Doctor Unassigned, [place] of AND TREATMENT 18:05:14 [facility] HOSPITAL ADMISSION 2022-04-13 Doctor Unassigned, University 05:01:00 [facility] SARS-COV-2 COVID-19 VACCINE 2022-02-19 Doctor Unassigned, U niversity of 12 YRS+,0.3ML,IM (PFIZER - 15:21:12 [facility] URINE DRUG (IMMUNOASSAY) - 2021-11-23 [facility] U niversity of COMPREHENSIVE DRUG SCREEN W/O [place]:21[place] [facility] CT HEAD WO CONTRAST 2021-11-23 [facility] ty of 20:58:00 [facility] POCT TEST 2021-11-23 [facility] ty of 20:46:00 [facility] URINALYSIS 2021-11-23 [facility] o f 20:43:00 [facility] LIPASE 2021-11-23 [facility] o f 20:27:00 [facility] TROPONIN I 2021-11-23 [facility] o f 20:27:00 [facility] COMP. METABOLIC PANEL ([id number]) 2021-11-23 [facility] of 20:27:00 [facility] CBC WITH DIFF 2021-11-23 [facility] o f 20:27:00 [facility] POCT GLUCOSE (AUTOMATED) 2021-11-23 Doctor Unassigned, Univ ersity of 20:15:00 [facility] SARS-COV-2 COVID-19 2021-05-24 Doctor Unassigned, Universit y of VACCINE,0.3ML,IM (PFIZER) 14:23:12 [facility] SARS-COV-2 COVID-19 2021-05-03 Doctor Unassigned, Universit y of VACCINE,0.3ML,IM (PFIZER) 14:59:29 [facility] EMERGENCY SERVICES AGREEMENTS 2021-04-16 Doctor Unassigned, [place] of AND AUTHORIZATIONS 05:01:00 [facility] URINALYSIS 2021-03-17 Fabrice Chakraborty [place] of 03:09:00 [facility] XR CHEST 1 VW 2021-03-17 Fabrice Chakraborty [place] of 01:45:07 [facility] TROPONIN I 2021-03-17 [facility] 01:35:00 [facility] COMP. METABOLIC PANEL ([id number]) 2021-03-17 Fabrice Chakraborty Un iversity of 01:35:00 [facility] CBC WITH DIFF 2021-03-17 [facility] of 01:35:00 [facility] N-TERMINAL PRO-BNP 2021-03-17 [facility] of 01:35:00 [facility] COVID-19 (ID NOW RAPID 2021-03-[address] [facility] y of TESTING) 00:58:00 [facility] CONSENT/REFUSAL FOR DIAGNOSIS 2021-03-17 Doctor Lennyigned, [facility] AND TREATMENT 00:32:59 [facility] COVID-19 (ID NOW RAPID 2021-02-[address] [facility] y of TESTING) 17:04:[address] [facility] [address] ABDOMEN PELVIS W CONTRAST 2021-02-19 Anali Patel Uni versity of 16:41:18 [facility] LIPASE 2021-02-19 Anali Patel [place] of 15:58:00 [facility] COMP. METABOLIC PANEL ([id number]) 2021-02-19 Anali Patel Un iversity of 15:58:00 [facility] CBC WITH DIFF 2021-02-19 Anali Patel [place] of 15:58:00 [facility] URINALYSIS 2021-02-19 Anali Patel [place] of 15:58:00 [facility] NOTICE OF PRIVACY PRACTICES 2021-02-19 Doctor Joe, niversity of 15:30:46 [facility] CONSENT/REFUSAL FOR DIAGNOSIS 2021-02-19 Doctor Joe, [facility] AND TREATMENT 15:30:30 [facility] Plan of Care Planned Activity Planned Date Details Comments Source Future Scheduled 2025-08-02 Lipid panel (procedure) [facility] Test 00:00:00 [code = 10947848] Medical Ce nter Future Scheduled 2025-08-02 Lipid panel (procedure) [facility] 00:00:00 [code = 82964294] Medical Ce nter Future Scheduled 2022-07-[address] [facility] 00:00:00 (12+) [code = Medical Center DEPRESSION SCREENING (12+)] Future Scheduled 2022-07-[address] [facility] Test 00:00:00 (12+) [code = Medical Center DEPRESSION SCREENING (12+)] Future Scheduled 2022-06-21 COVID-19 VACCINE (4 - [facility]00 Booster for Pfizer Medical C enter series) [code = COVID-19 VACCINE (4 - Booster for Pfizer series)] Future Scheduled 2022-06-21 COVID-19 VACCINE (4 - [facility] 00:00:00 Booster for Pfizer Medical C enter series) [code = COVID-19 VACCINE (4 - Booster for Pfizer series)] Future Scheduled 2022-03-20 INFLUENZA VACCINE (#1) [facility]00 [code = INFLUENZA Medical Ce nter VACCINE (#1)] Future Scheduled 2022-03-20 INFLUENZA VACCINE (#1) [facility] 00:00:00 [code = INFLUENZA Medical Ce nter VACCINE (#1)] Future Scheduled 2022-01-14 SHINGLES VACCINES ([address] [facility] 00:00:00 2) [code = SHINGLES [facility] VACCINES (1 of 2)] Future Scheduled 2022-01-14 SHINGLES VACCINES ([address] [facility] 00:00:00 2) [code = SHINGLES [facility] VACCINES (1 of 2)] Future Scheduled 2013-12-[address] [facility] Test 00:00:00 0-64 YRS (2 - PCV) Medical C enter [code = PNEUMOCOCCAL VACCINE 0-64 YRS (2 - PCV)] Future Scheduled 2013-12-[address] [facility] Test 00:00:00 0-64 YRS (2 - PCV) Medical C enter [code = PNEUMOCOCCAL VACCINE 0-64 YRS (2 - PCV)] Future Scheduled 1993-01-14 Screening for malignant [facility] 00:00:00 neoplasm of cervix Medical C enter (procedure) [code = 428073982] Future Scheduled 1993-01-14 Screening for malignant [facility] Test 00:00:00 neoplasm of cervix Medical C enter (procedure) [code = 972504032] Future Scheduled 1991-01-14 DTAP/TDAP/TD VACCINES [facility] 00:00:00 (1 - Tdap) [code = Medical C enter DTAP/TDAP/TD VACCINES (1 - Tdap)] Future Scheduled 1991-01-14 DTAP/TDAP/TD VACCINES [facility] 00:00:00 (1 - Tdap) [code = Medical C enter DTAP/TDAP/TD VACCINES (1 - Tdap)] Future Scheduled 1990-01-14 HEPATITIS C SCREENING [facility]00 [code = HEPATITIS C Medical Center SCREENING] Future Scheduled 1990-01-14 HEPATITIS C [facility]CRE[facility]ING [facility]:00:00 [code = HEPATITIS C Medical Center SCREENING] Future Scheduled [address] [facility] Test 00:00:00 Counseling and Medical Cente r Screening (12+) [code = Tobacco Cessation Counseling and Screening (12+)] Future Scheduled [address] [facility] 00:00:00 Counseling and Medical Cente r Screening (12+) [code = Tobacco Cessation Counseling and Screening (12+)] Future Scheduled 1972 Screening for malignant [facility] Test 00:00:00 neoplasm of breast Medical C enter (procedure) [code = 205796229] Future Scheduled 1972 CT Colonography (combo) [facility] 00:00:00 [code = CT Colonography [facility] (combo)] Future Scheduled 1972 Screening for malignant [facility] 00:00:00 neoplasm of colon Medical Ce nter (procedure) [code = 410042112] Future Scheduled 1972 Screening for malignant [facility] Test 00:00:00 neoplasm of colon Medical Ce nter (procedure) [code = 001753776] Future Scheduled 1972 Screening for malignant [facility] 00:00:00 neoplasm of colon Medical Ce nter (procedure) [code = 303910205] Future Scheduled 1972 Screening for malignant [facility] 00:00:00 neoplasm of colon Medical Ce nter (procedure) [code = 393468558] Future Scheduled 1972 Sigmoidoscopy [code = [facility] S[facility]oidoscopy] Medical Cente r Future Scheduled 1972 Screening for malignant [facility] Test 00:00:00 neoplasm of breast Medical C enter (procedure) [code = 016179627] Future Scheduled 1972 CT Colonography (combo) [facility] 00:00:00 [code = CT Colonography [facility] (combo)] Future Scheduled 1972 Screening for malignant [facility] Test 00:00:00 neoplasm of colon Medical Ce nter (procedure) [code = 900576688] Future Scheduled 1972 Screening for malignant [facility] Test 00:00:00 neoplasm of colon Medical Ce nter (procedure) [code = 110610703] Future Scheduled 1972 Screening for malignant [facility] 00:00:00 neoplasm of colon Medical Ce nter (procedure) [code = 050953352] Future Scheduled 1972 Screening for malignant [facility] 00:00:00 neoplasm of colon Medical Ce nter (procedure) [code = 774151422] Future Scheduled 1972 Sigmoidoscopy [code = [facility] S[facility]oscopy] Medical Cente r Goal Plan of Care Note [code = 69510-8] Goal Plan of Care Note [code = 50923-2] Goal Plan of Care Note [code = 97494-6] Goal Plan of Care Note [code = 16105-7] Goal Plan of Care Note [code = 51963-6] Goal Plan of Care Note [code = 41667-6] Goal Plan of Care Note [code = 03124-7] Goal Plan of Care Note [code = 92432-3] Goal Plan of Care Note [code = 35160-0] Goal Plan of Care Note [code = 05204-5] Goal Plan of Care Note [code = 61625-3] Goal Plan of Care Note [code = 70182-5] Goal Plan of Care Note [code = 45147-2] Goal Plan of Care Note [code = 28368-5] Goal Plan of Care Note [code = 72433-7] Goal Plan of Care Note [code = 58634-2] Goal Plan of Care Note [code = 84492-9] Goal Plan of Care Note [code = 39124-3] Goal Plan of Care Note [code = 35127-0] Goal Plan of Care Note [code = 55272-8] Goal Plan of Care Note [code = 70445-8] Goal Plan of Care Note [code = 21582-5] Goal Plan of Care Note [code = 50634-8] Goal Plan of Care Note [code = 45554-4] Goal Plan of Care Note [code = 35075-6] Goal Plan of Care Note [code = 88002-9] Goal Plan of Care Note [code = 32922-3] Goal Plan of Care Note [code = 39332-2] Goal Plan of Care Note [code = 21942-1] Goal Plan of Care Note [code = 37700-9] Goal Plan of Care Note [code = 64518-7] Goal Plan of Care Note [code = 76107-4] Goal Plan of Care Note [code = 96294-4] Goal Plan of Care Note [code = 38357-6] Goal Plan of Care Note [code = 41903-9] Encounters Start End Encounter Admission Attending Care Care Encounter Source Date/Time Date/Time Type Type Clinicians Facility Department ID 2021-05-20 Emergency [facility] [id number] Univers 18:48:[address] [facility] [place] [place] 2021-05-20 Emergency [facility] [id number] Univers 12:43:[address] [facility] [place] [place] 2022-08-02 2022-08-03 [facility] [id number] 17[facility]30[facility]00 14:29:00 Encounter Jen Yepez [facility] 2022-08-02 2022-08-03 [facility] Halima Mendoza [facility] [id number] 17:30[facility]00 14:29:00 Encounter Jen Yepez [facility] 2022-08-02 2022-08-03 Outpatient ER CORRY, [facility] Neurology [id number] SLE 17:30:00 14:29:00 PARRISH 2022-08-03 2022-08-03 Orders [facility] [id number] 00:00[facility]00 00:00:00 Only [facility] 2022-08-03 2022-08-03 Orders [facility] [id number] 00:00:00 00:00:00 Only [facility] 2022-08-02 2022-08-[address] [facility] [id number] [facility] 00[facility]00 [facility] 2022-08-02 2022-08-[address] [facility] [id number] [facility] 00[facility]00 [facility] 2022-07-31 2022-08-01 Inpatient X [facility] [id number] Univers 11:42:00 21:48:00 LORENZA itshawn [facility] 2022-07-31 2022-08-01 [facility] Alcon Sav [facility] 1.2.840.1 14 [id number] Univers 11:42:00 21:48:00 Encounter Lorenza Her 350.1.13.10 ity [facility] 4.2.7.2.[address] [facility] [id number] [facility] [address] 2022-08-01 2022-08-01 Transition BLAYNE Nicole 1.2.840.114 [id number] Univers 00:00:00 00:00:00 of Care Maria Teresa WALLACE 350.1.13.10 ity [place] 4.2.7.2.686 [facility] [id number] [facility] [address] 2022-07-28 2022-07-28 Outpatient BHARAT NICHOLSON [id number] Adria 14:41:38 14:41:38 0109 F Mauricio 2022-07-28 2022-07-28 Outpatient [id number]- [id number] 3d i8yp27-8 00:00:00 00:00:00 Visit [id number] 540-4579-8 -9jo4-5pr fa1-9db46d [id number] 537df0 2022-07-24 2022-07-24 Outpatient [facility] [id number] Adria 13:24:40 13:24:40 0105 F Mauricio 2022-05-23 2022-05-23 Outpatient SFA [facility] [id number] Adria 14:51:01 14:51:01 1104 F Mauricio 2022-05-23 2022-05-23 Outpatient [id number]- [id number] f9 utls63-v 00:00:00 00:00:00 Visit v12u-8ly8 62f-4bb7-b -d48s-6d9 33a-1o3347 [id number] 7850ee 2022-05-04 2022-05-08 Outpatient X CHANTEL MATTHEWS [facility] [place] [id number] Univers 20:22:00 14:44:00 [facility]22-05-04 2022-05-08 Emergency Brandyn Mcfarlane 1.2.840.1 14 [id number] Univers 20:22:00 14:44:00 Chantel Matthews 350.1.13 .10 ity of [facility] 4.2.7.2.68[facility] as [id number] [address] 2022-04-13 2022-04-15 [facility] [id number] Univers 13:06:00 15:00:00 [facility] ity [facility] 2022-04-13 2022-04-15 Hospital Sapna Vargas 1.2.84 0.114 [id number] Univers 13:06:00 15:00:00 Encounter TyrelArthurBarrigarajat JC 350. 1.13.10 ity of [facility] 4.2.7.2.686 [place] [id number] [address] 2022-02-19 2022-02-19 Imm[facility]Inj [facility]ine[facility] [place] JUSTINE 1.2.840.114 [id number] Univers 10:20:00 10:30:00 Visit Jose Frederick 350.1.13.10 it[place] [facility] [place] [place] [facility] [facility] [id number] [address] 2022-02-19 2022-02-19 Outpatient R PASHAJOSE REVELES [facility] [id number] Univers 10:20:00 10:20:00 ity of [facility] 2021-11-23 2021-11-23 Emergency X SULYL [facility] ERT [id number] Univers 15:07:00 17:03:00 NICHELLE ity of [facility] 2021-11-23 2021-11-23 Emergency Sav Rondon [facility] 1.2.840. 114 [id number] Univers 15:07:00 17:03:00 Nichelle Allison F MARY 350.1.13. 10 ity of [place] 4.2.7.2.[address] [facility] [id number] [place] [id number] Branch 2021-11-21 2021-11-21 Outpatient R [facility] [id number] Univers 09:40:00 09:40:00 ity of [facility] 2021-05-24 2021-05-24 Outpatient R PASHAJOSE REVELES [facility] [id number] Univers 09:30:00 09:30:00 ity of [facility] 2021-05-24 2021-05-24 Imm/Inj Vaccine, [facility] [place] KE 1.2.840.114 [id number] Univers 08:47:51 08:57:51 Visit Jose Frederick 350.1.13.10 it[place] [facility] [place] [place] [facility] [id number] [address] 2021-05-03 2021-05-03 Outpatient R PASHA, JOSE [facility] [id number] Univers 09:40:00 09:59:35 ity [facility] 2021-05-03 2021-05-03 Imm/Inj Vaccine, [facility] [place] 1.2.840.114 [id number] Univers 09:17:43 09:59:35 Visit Jose Frederick 350.1.13.10 it[place] of [facility] [place] [place] [facility] [facility] [id number] [facility] [address] 2021-04-16 2021-04-16 Orders Doctor EWELINA 1.2.840.114 [id number] Univers 00:00:00 00:00:00 Only Unassigned, HOSEA 350.1.13.[address] [place] [facility] 4.2.7.2.686 Javier as [id number] [facility] [address] 2021-03-17 2021-03-17 Telephone EWELINA Nava 1.2.176.775 [id number] Univers 00:00:00 00:00:00 Aneatrice HOSEA 350.1.13.10 ity of [facility] 4.2.7.2.686 Javier as [id number] [facility] [address] 2021-03-16 2021-03-16 Emergency Palmer [facility] 1.2.840.114 [id number] Univers 20:08:00 23:24:00 Fabrice Harrell 350.1.13.10 i ty of [place] 4.2.7.2.686 [facility] [id number] [place] [id number] [place] 2021-03-14 2021-03-14 Urgent Dannyelton Jermainejolly [facility] 1.2.840.114 [id number] Univers 18:59:34 20:19:13 Care Unknown, Attending [facility] 350.1.13.10 ity [facility] 4.2.7.2.686 Javier as Prem?Blea [id number] [address] Medical Office Building 2021-03-14 2021-03-14 Outpatient R UNKNOWN, [facility] [id number] Univers 19:00:00 19:00:00 ATTENDING ity [facility] 2021-02-19 2021-02-19 [facility] 1.2.473.535 [id number] Univers 10:49:00 14:48:00 Anali Harrell 350.1.13.10 i ty of [place] 4.2.7.2.686 [facility] [id number] [address] 2019-03-09 2019-03-09 Dick Arcos [facility] 1.2.840.114 [id number] 00:00:00 00:00:00 Yehuda Harrell 350.1.13.10 [place] 4.2.7.2.686 Professio [id number] nal 092 [facility] 2019-03-09 2019-03-09 Dick Arcos LAKE[facility]IN 1.2.840.114 [id number] Univers 00:00:00 00:00:00 Yehuda Harrell 350.1.13.10 ity of [place] 4.2.7.2.686 Charles pacheco essio [id number] Co dical [facility] Results Test Description Test Time Test Comments Results Result Comments Source RPR 2022-08-05 13:17:22 Test Item Value Reference Range Interpretation Comme nts RPR SCREEN (LATOYA) (test code = 420) Nonreactive Nonreactive HEMOGLOBIN [id number] 10:39:49 Test Item Value Reference Range Interpretation Comments HEMOGLOBIN A1C 5.8 % See_Comment H [Automated m essage] [facility]ORESIS ([facility] The system which (test code = 3811) generated this result transmitted ref erence range: <=5.6%. The reference range was not used to int erpret this result as normal/abnormal . "The A1c is measured using a [facility]-certified method. HbA1c value equal to or greater than 6.5% as thediagnosis cutoff for diabetes. An HbA1c value of 5.7- 6.4% indicates increased risk for diabetes (prediabetes)."Motor Vehicle Examiner ID - ADM VITAMIN [id number] 22:48:27 Test Item Value Reference Range Interpretation Comments VITAMIN B12 (LATOYA) (test code = 227 pg/mL 213-816 774) Motor Vehicle Examiner ID - MARCOTSH/FREE T4 IF [id number] 22:08:28 Test Item Value Reference Range Interpretation Comments THYROID STIMULATING HORMONE 3.309 uIU/mL 0.350-4.940 (Book'n'BloomBRIDGER) (test code = 772) Motor Vehicle Examiner ID - JSHIV-1 ANTIGEN WITH HIV-1/2 [id number] 22:08:28 Test Item Value Reference Range Interpretation Comments HIV-1 ANTIGEN WITH HIV 1\\T\\2 Nonreactive Nonreactive ANTIBODY (2) (LATOYA) (test code = 2586) Motor Vehicle Examiner ID - JSC-REACTIVE [id number] 21:49:44 Test Item Value Reference Range Interpretation Comments C-REACTIVE PROTEIN (BEAKER) (test 0.35 mg/dL 0.00-0.50 code = 676) Motor Vehicle Examiner ID - JSCOMPREHENSIVE METABOLIC [id number] 21:49:43 Test Item Value Reference Range Interpretation [...] not appl icable for dialysis patien ts Motor Vehicle Examiner ID - JSLIPID [id number] 21:49:43 Test Item Value Reference Range Interpretation [...] Borderline 130-159 High 160-189 Very High >=190 Motor Vehicle Examiner ID - JSCBC W/PLT COUNT & AUTO [id number] 21:34:03 Test Item Value Reference Range Interpretation [...] Interpretation Comments Height (test code = in 8648205587) Weight (test code = lbs 8271945703) Systolic BP (test code = mmHg 6858420222) Diastolic BP (test code mmHg = 1984598768) Heart Rate (test code = bpm 6403833045) BSA (test code = 2.00 m2 6266483945) Ao root diam (test code 3.20 cm = 8641240536) Aortic root (test code = 3.2 cm 2521714823) Ao root annulus (test 3.2 cm code = 9771243437) LVOT diameter (test code 1.99 cm = 9811023851) LVOT area (test code = 3.10 cm2 3682258058) LVIDD (test code = 5.10 cm 4344956532) Left Ventricular End 123.0 mL Diastolic Volume by Teichholz Method (test code = 1715941) IVS (test code = 1.34 cm 6473888621) Interventricular Septum 1.34 cm Diastolic Thickness by 2D (test code = 9116083) LVPWD (test code = 1.34 cm 9819078045) PW (test code = 1.34 cm 0.6-1.5 2032395895) EF(Teich) (test code = 41.80 % 5937080578) LVIDS (test code = 4.00 cm 8853296902) Left Ventricular End 71.5 mL Systolic Volume by Teichholz Method (test code = 0951924) FS (test code = 21 % 1564945792) EF - 2D (test code = 41.80 % 50753185) LA size (test code = 4.6 cm 9222905595) Pulmonic Regurgitant End 119.4 cm/s Max Velocity (test code = 2397441974) LAV(MOD-sp4) (test code 95.00 mL = 9046405678) E wave decelartion time 0.15 s (test code = 0009484088) MV stenosis pressure 1/2 45.6 ms time (test code = 4992580546) MV Peak A Evette (test code 123.8 cm/s = 5582913610) MV Peak E Evette (test code 109.7 cm/s = 9142098720) E/A ratio (test code = ratio 5147468319) MR max PG (test code = 87.20 mm[Hg] 2657620512) MR max evette (test code = 466.90 cm/s 1836430280) Mr max evette (test code = 466.9 m/s 5671626068) MV Prop V (test code = 51.00 cm/s 6297291546) MV E/e' septal (test 8.1 cm/s code = 7715470267) Tapse (test code = 2.21 cm 3402208099) LVOT stroke volume (test 49.80 cm3 code = 5330205192) LVOT peak evette (test code 89.1 cm/s = 0202371238) LVOT mn grad (test code mmHg = 0016957082) AV LVOT peak gradient mmHg (test code = 3820992964) LVOT peak VTI (test code 16.0 cm = 2254927715) LV V1 mean (test code = 64.30 cm/s 2542057722) Aortic valve mean 133.8 cm/s velocity (test code = 7050584588) Ao peak evette (test code = 175.3 cm/s 2038608492) Ao VTI (test code = 32.2 cm 8833929873) AV area by cont VTI 1.6 cm2 (test code = 2404411340) AV area peak evette (test 1.6 cm2 code = 1804543450) Ao max PG (test code = 12.30 mm[Hg] 1963588403) AV peak gradient (test mmHg code = 1652081910) AV valve area (test code 1.55 cm2 = 6461671175) AV mean gradient (test mmHg code = 1887341409) AV regurgitation 358.5 ms pressure 1/2 time (test code = 6298587679) AI dec slope (test code 364.20 cm/s2 = 6284000337) AI max evette (test code = 445.80 cm/s 2577589554) AI max PG (test code = 79.50 mm[Hg] 5982687500) Radiology Study observation (narrative) (test code = 29152-7) LYNDSAY (test code = LYNDSAY) ?Left?Ventricle: Left [...] mL of Lumason ultrasound enhancing agent used. [facility]2022-[facility]-01 10:43:32 Test Item Value Reference Range Interpretation Comments POCT GLU (test code = 5102659744) 148 mg/dL 70-110 H Lab Interpretation (test code = Abnormal 81144-8) [facility] SystemACTIV[facility] PARTIAL THRMPLAS [id number] 18:39:45 Test Item Value Reference Range Interpretation Comments APTT Patient (test See_Comment [Automat ed code = 3173-2) message] The system which generated this result transmitted reference range : 23 - 38 Seconds . The reference range was not used to interpr et this result as normal/abnormal . LYNDSAY (test code = LYNDSAY) The [facility] patient population mean normal value for aPTT is 30 seconds. Lab Interpretation Normal (test code = 29121-1) [facility] SystemPROT[facility]OMBIN TIME / [id number] 18:37:42 Test Item Value Reference Range Interpretation [...] tions. Lab Interpretation (test Normal code = 76910-9) [facility] SystemTR[facility]IN [id number] 18:32:01 Test Item Value Reference Interpretation Comments Range TROPONIN I (test 0.019 ng/mL See_Comment [Automated code = 6829302707) message] The system which generated this result [...] biotin. Lab Interpretation Normal (test code = 21510-9) [facility] System[facility]-TERMINAL [id number] 18:29:01 Test Item Value Reference Range Interpretation Comments NT-proBNP (test code 2770 pg/mL See_Comment H [Autom ated = 6662235777) message] The system which generated this result transmitted reference range : <=125. The reference range was not used to interpret this result as normal/abnormal . LYNDSAY (test code = LYNDSAY) Biotin has been reported to cause a negative bias, interpret results relative to patient's use of biotin. Lab Interpretation Abnormal (test code = 66634-3) [facility] SystemCOMP. METABOLIC PANEL (92048)2022-07-31 18:21:42 Test Item Value Reference Range Interpretation Comments NA (test code = 136 mmol/L 135-145 6725325580) K (test code = 4.6 mmol/L 3.5-5.0 6780659573) CL (test code = 104 mmol/L 98-108 0443070139) CO2 TOTAL (test code = 26 mmol/L 23-31 5107425951) AGAP (test code = 2-16 5642464371) BUN (test code = 9 mg/dL 7-23 9362095787) GLUCOSE (test code = 97 mg/dL 70-110 4389017487) CREATININE (test code = 0.64 mg/dL 0.50-1.04 9660342139) TOTAL BILI (test code = 0.5 mg/dL 0.1-1.4 8959460463) CALCIUM (test code = 8.2 mg/dL 8.6-10.6 L 1825724174) T PROTEIN (test code = 6.5 g/dL 6.3-8.2 6038715869) ALBUMIN (test code = 3.9 g/dL 3.5-5.0 1346189219) ALK PHOS (test code = 93 U/L 34-122 0073335060) ALTv (test code = 18 U/L 5-35 1742-6) AST(SGOT) (test code = 19 U/L 13-40 6528043015) eGFR (test code = mL/min/1.73m2 6667894282) LYNDSAY (test code = LYNDSAY) Association of [...] tests). Lab Interpretation Abnormal (test code = 53144-6) [facility] SystemLIPASE2023-01-12 18:21:01 Test Item Value Reference Range Interpretation Comments LIPASE (test code = 7445738964) 54 U/L 0-220 Lab Interpretation (test code = Normal 03313-0) [facility] SystemCB WITH [id number] 18:07:00 Test Item Value Reference Range Interpretation [...] (test code = 53.1 fL 39.0-49.9 H 84520-5) RDW-CV (test code = 17.0 % 12.0-15.5 H 788-0) PLT (test code = See_Comment H [Automated 777-3) message] The sy stem which generated this result transmitted reference range : 166 - 358 10*3/ ?L. The reference r zoe was not used to interpret this result as normal/abnormal . MPV (test code = 8.2 fL 9.5-12.9 L 50080-5) NRBC/100 WBC (test See_Comment [Automat ed code = 7325263048) message] The system which generated this result transmitted reference range : 0.0 - 10.0 /100 WBCs. The refer ence range was not u sed to interpret th is result as normal/abnormal . NRBC x10^3 (test code See_Comment [Auto mated = 8888249869) message] The s ystem which generated this result transmitted reference range : 10*3/?L. The reference range was not used to interpret this result as normal/abnormal . GRAN MAT (NEUT) % 64.0 % (test code = 770-8) IMM GRAN % (test code 0.40 % = 5576442088) LYMPH % (test code = 27.3 % 736-9) MONO % (test code = 6.5 % 5905-5) EOS % (test code = 1.1 % 713-8) BASO % (test code = 0.7 % 706-2) GRAN MAT x10^3(ANC) 5.46 10*3/uL 1.88-7.09 (test code = 9288996117) IMM GRAN x10^3 (test 0.03 10*3/uL 0.00-0.06 code = 3326514483) LYMPH x10^3 (test code 2.32 10*3/uL 1.32-3.29 = 731-0) MONO x10^3 (test code 0.55 10*3/uL 0.33-0.92 = 742-7) EOS x10^3 (test code = 0.09 10*3/uL 0.03-0.39 711-2) BASO x10^3 (test code 0.06 10*3/uL 0.01-0.07 = 704-7) Lab Interpretation Abnormal (test code = 19161-1) [facility] METABOLIC PANEL (NA, K, CL, CO2, GLUCOSE, BUN, CREATININE, CA)2022-05-08 06:37:01 Test Item Value Reference Range Interpretation Comments NA (test code = 137 mmol/L 135-145 3199943475) K (test code = 3.8 mmol/L 3.5-5 3482871823) CL (test code = 103 mmol/L 98-108 6229808265) CO2 TOTAL (test code = 24 mmol/L 23-31 6877140790) AGAP (test code = 2-16 2582345079) BUN (test code = 13 mg/dL 7-23 2140367939) GLUCOSE (test code = 90 mg/dL 70-110 5097209562) CREATININE (test code = 0.69 mg/dL 0.5-1.04 2228663134) CALCIUM (test code = 8.5 mg/dL 8.6-10.6 L 7827221924) eGFR (test code = mL/min/1.73m2 1232365536) LYNDSAY (test code = LYNDSAY) Association of [...] tests). Lab Interpretation Abnormal (test code = 42448-4) [facility]MAGN[facility]IUM2022-10-20 06:37:01 Test Item Value Reference Range Interpretation Comments MAGNESIUM (test code = 9697361580) 2.1 mg/dL 1.7-2.4 Lab Interpretation (test code = Normal 95039-7) [facility] SystemPHOSPHORUS2022-10-20 06:37:01 Test Item Value Reference Range Interpretation Comments PHOSPHORUS (test code = 8067611039) 4.7 mg/dL 2.5-5 Lab Interpretation (test code = Normal 89063-7) [facility] System[facility] WITH [id number] 06:11:54 Test Item Value Reference Range Interpretation Comments WBC (test code = See_Comment [Automated 9490-2) message] The sy stem which generated this [...] (test code = 51.0 fL 39-49.9 H 63153-8) RDW-CV (test code = 16.5 % 12-15.5 H 788-0) PLT (test code = See_Comment H [Automated 777-3) message] The sy stem which generated this result transmitted reference range : 166 - 358 10*3/ ?L. The reference r zoe was not used to interpret this result as normal/abnormal . MPV (test code = 8.3 fL 9.5-12.9 L 18511-9) NRBC/100 WBC (test See_Comment [Automat ed code = 4579396972) message] The system which generated this result transmitted reference range : 0.0 - 10.0 /100 WBCs. The refer ence range was not u sed to interpret th is result as normal/abnormal . NRBC x10^3 (test code See_Comment [Auto mated = 7312635544) message] The s ystem which generated this result transmitted reference range : 10*3/?L. The reference range was not used to interpret this result as normal/abnormal . GRAN MAT (NEUT) % 64.5 % (test code = 770-8) IMM GRAN % (test code 0.50 % = 8681552015) LYMPH % (test code = 27.1 % 736-9) MONO % (test code = 6.6 % 5905-5) EOS % (test code = 0.6 % 713-8) BASO % (test code = 0.7 % 706-2) GRAN MAT x10^3(ANC) 5.28 10*3/uL 1.88-7.09 (test code = 8262958457) IMM GRAN x10^3 (test 0.04 10*3/uL 0-0.06 code = 4498569017) LYMPH x10^3 (test code 2.22 10*3/uL 1.32-3.29 = 731-0) MONO x10^3 (test code 0.54 10*3/uL 0.33-0.92 = 742-7) EOS x10^3 (test code = 0.05 10*3/uL 0.03-0.39 711-2) BASO x10^3 (test code 0.06 10*3/uL 0.01-0.07 = 704-7) Lab Interpretation Abnormal (test code = 62301-0) [facility]PO[facility]AUT[facility])2022-05-07 01:18:10 Test Item Value Reference Range Interpretation Comments POCT GLU (test code = 8842208823) 120 mg/dL 70-110 H Lab Interpretation (test code = Abnormal 60621-1) [facility] SystemType and Screen - ONCE [id number] 05:46:35 Test Item Value Reference Range Interpretation Comments ABO & RH (test code O POSITIVE Performe d at [facility] = 20) [facility] Blood Bank3 [address] [facility] s [address]Ggub Free: [phone] A No. [id number] IAT (test code = Negative Performed a t [facility] 1185) [facility] Blood Bank3 [address] [facility] s [address]Cfle Free: [phone] A No. [id number] [facility] SystemBAS[facility] METABOLIC PANEL (NA, K, CL, CO2, GLUCOSE, BUN, CREATININE, CA)2022-05-05 08:22:57 Test Item Value Reference Range Interpretation Comments NA (test code = 136 mmol/L 135-145 9157536632) K (test code = 4.9 mmol/L 3.5-5 1862502526) CL (test code = 108 mmol/L 98-108 7407446633) CO2 TOTAL (test code = 22 mmol/L 23-31 L 7999601262) AGAP (test code = 2-16 0427309228) BUN (test code = 12 mg/dL 7-23 3857334872) GLUCOSE (test code = 155 mg/dL 70-110 H 6648162231) CREATININE (test code = 0.63 mg/dL 0.5-1.04 2675893010) CALCIUM (test code = 8.4 mg/dL 8.6-10.6 L 3073659588) eGFR (test code = mL/min/1.73m2 1905706321) LYNDSAY (test code = LYNDSAY) Association of [...] tests). Lab Interpretation Abnormal (test code = 43315-2) [facility] SystemPROTHROMBIN TIME / [id number] 08:22:37 Test Item Value Reference Range Interpretation Comments PROTIME PATIENT (test See_Comment [Auto mated message] code = 5964-2) The system ich generated this result transmitted ref erence range: 10.1 - 1 2.6 Seconds. The re ference range was not u sed to interpret this result as normal/abnor mal. INR (test code = 6301-6) Nor mal INR <1.1; Warfarin Therap eutic range 2.0 to 3. 0 or 2.5 to 3.5, dep ending upon the indica tions. Lab Interpretation (test Normal code = 84622-7) [facility] SystemaPTT2022-10-17 08:22:37 Test Item Value Reference Range Interpretation Comments APTT Patient (test code = See_Comment [ Automated message] 3173-2) The system [employer] h generated this result transmitted ref erence range: 26 - 36 Seconds. The re ference range was not u sed to interpret this result as normal/abnor mal. Lab Interpretation (test Normal code = 20491-5) [facility]37 Test Item Value Reference Range Interpretation Comments Fibrinogen (test code = 3217023010) 294 mg/dL 167-453 Lab Interpretation (test code = Normal 71181-0) [id number] 08:15:01 Test Item Value Reference Range Interpretation Comments WBC (test code = See_Comment [Automated 0910-2) message] The sy stem which generated this result transmitted reference range : 4.30 - 11.10 10*3/?L. The reference range was not used to interpret this result as normal/abnormal . RBC (test code = See_Comment [Automated 861-8) message] The sy stem which generated this [...] (test code = 52.9 fL 39-49.9 H 00323-9) RDW-CV (test code = 16.8 % 12-15.5 H 788-0) PLT (test code = See_Comment H [Automated 777-3) message] The sy stem which generated this result transmitted reference range : 166 - 358 10*3/ ?L. The reference r zoe was not used to interpret this result as normal/abnormal . MPV (test code = 8.3 fL 9.5-12.9 L 18091-7) NRBC/100 WBC (test See_Comment [Automat ed code = 9947663782) message] The system which generated this result transmitted reference range : 0.0 - 10.0 /100 WBCs. The refer ence range was not u sed to interpret th is result as normal/abnormal . NRBC x10^3 (test code See_Comment [Auto mated = 9399595910) message] The s ystem which generated this result transmitted reference range : 10*3/?L. The reference range was not used to interpret this result as normal/abnormal . GRAN MAT (NEUT) % 86.4 % (test code = 770-8) IMM GRAN % (test code 0.40 % = 6145053917) LYMPH % (test code = 11.7 % 736-9) MONO % (test code = 1.1 % 5905-5) EOS % (test code = 0.0 % 713-8) BASO % (test code = 0.4 % 706-2) GRAN MAT x10^3(ANC) 6.36 10*3/uL 1.88-7.09 (test code = 5793526631) IMM GRAN x10^3 (test 0.03 10*3/uL 0-0.06 code = 1877934807) LYMPH x10^3 (test code 0.86 10*3/uL 1.32-3.29 L = 731-0) MONO x10^3 (test code 0.08 10*3/uL 0.33-0.92 L = 742-7) EOS x10^3 (test code = 0.03-0.39 L 711-2) BASO x10^3 (test code 0.03 10*3/uL 0.01-0.07 = 704-7) Lab Interpretation Abnormal (test code = 64454-9) [facility] [id number] 20:14:03 Test Item Value Reference Range Interpretation Comments VIT D 25OH (test code = 22 ng/mL 25-80 L 81862-5) LYNDSAY (test code = LYNDSAY) Deficiency: <20 ng/mLInsufficiency: 20-24 ng/mLOptimal: 25-80 ng/mL Lab Interpretation (test Abnormal code = 66879-6) [facility] (NA, K, CL, CO2, GLUCOSE, BUN, CREATININE, CA)2022-04-15 11:27:57 Test Item Value Reference Range Interpretation Comments NA (test code = 138 mmol/L 135-145 4933025378) K (test code = 3.9 mmol/L 3.5-5 0433346613) CL (test code = 106 mmol/L 98-108 1744435115) CO2 TOTAL (test code = 23 mmol/L 23-31 3783187977) AGAP (test code = 2-16 3827787383) BUN (test code = 10 mg/dL 7-23 7857722569) GLUCOSE (test code = 91 mg/dL 70-110 8579484876) CREATININE (test code = 0.65 mg/dL 0.5-1.04 6239853142) CALCIUM (test code = 8.1 mg/dL 8.6-10.6 L 1433718161) eGFR (test code = mL/min/1.73m2 1871776482) LYNDSAY (test code = LYNDSAY) Association of [...] tests). Lab Interpretation Abnormal (test code = 28781-5) [facility] Protocol - Transthoracic echo (TTE) 2022-04-14 22:07:33 Test Item Value Reference Range Interpretation Comments Height (test code = in 8934185969) Weight (test code = lbs 2935599135) Systolic BP (test code = mmHg 7190967228) Diastolic BP (test code mmHg = 4953513500) Heart Rate (test code = bpm 8832390406) BSA (test code = 1.94 m2 8698146902) TASV (test code = 15.5 cm/s 4331704116) LVIDD (test code = 6.00 cm 1711806936) Left Ventricular End 183.0 mL Diastolic Volume by Teichholz Method (test code = 0612462) IVS (test code = 1.09 cm 3682003402) Interventricular Septum 1.09 cm Diastolic Thickness by 2D (test code = 4723481) LVPWD (test code = 0.94 cm 3706365870) PW (test code = 0.94 cm 0.6-1.0 8700167594) EF(Teich) (test code = 40.30 % 2653973065) LVIDS (test code = 4.80 cm 8510469244) Left Ventricular End 109.2 mL Systolic Volume by Teichholz Method (test code = 4281817) FS (test code = 20 % 7979499537) EF - 2D (test code = 40.30 % 25780775) LVOT diameter (test code 2.05 cm = 2627440390) LVOT area (test code = 3.30 cm2 7409759714) Ao root diam (test code 3.10 cm = 0902973995) Aortic root (test code = 3.1 cm 5304585155) Ao root annulus (test 3.1 cm code = 2910118292) LA size (test code = 4.2 cm 8484432875) LAV(MOD-sp4) (test code 64.90 mL = 1335729449) MV Peak A Evette (test code 115.7 cm/s = 7331618009) E wave decelartion time 0.15 s (test code = 8552535093) MV Peak E Evette (test code 106.2 cm/s = 1090024792) E/A ratio (test code = ratio 4107134950) LVOT stroke volume (test 48.30 cm3 code = 8984437948) LVOT peak evette (test code 78.4 cm/s = 2273233584) LVOT mn grad (test code mmHg = 1960719232) AV LVOT peak gradient mmHg (test code = 5848678544) LVOT peak VTI (test code 14.7 cm = 2991648081) LV V1 mean (test code = 51.40 cm/s 5459034461) Ao peak evette (test code = 154.7 cm/s 3994912626) AV area peak evette (test 1.7 cm2 code = 6781008276) Ao max PG (test code = 9.60 mm[Hg] 4904298254) AV peak gradient (test mmHg code = 8088311032) AV regurgitation 257.3 ms pressure 1/2 time (test code = 6042045651) AI dec slope (test code 498.10 cm/s2 = 6539889244) AI max evette (test code = 437.60 cm/s 0670023662) AI max PG (test code = 77.80 mm[Hg] 4564194748) Tapse (test code = 2.19 cm 2990426319) LA Volume Index (BP) 32.0 mL/m2 (test code = 4966299247) LA volume (BP) (test 62.1 mL code = 1436753817) LAV(MOD-sp2) (test code 52.70 mL = 3676762131) A4C EF (test code = 44.80 % 9295982263) EF(sp4-el) (test code = 45.20 % 2711214106) SV(MOD-sp4) (test code = 71.20 mL 1461279564) SV(sp4-el) (test code = 73.90 mL 4977079823) LV Diastolic Volume (BP) 146.3 mL (test code = 9294093319) A2C EF (test code = 52.00 % 5422069988) EF(MOD-bp) (test code = 46.70 % 1954708163) EF(sp2-el) (test code = 52.40 % 2110176457) LV Systolic Volume (BP) 77.9 mL (test code = 8537377128) SV(MOD-bp) (test code = 68.40 mL 4482824332) SV(MOD-sp2) (test code = 69.20 mL 8639553918) EF (test code = 6136410583) Left Ventricular Stroke 68.4 mL Volume by 2-D Biplane-MOD (test code = 3513068) Radiology Study observation (narrative) (test code = 08211-4) LYNDSAY (test code = LYNDSAY) ?Left?Ventricle: Left [...] agent used and saline contrast was performed. [facility] (LEVETIRACETAM)2022-04-14 16:48:36 Test Item Value Reference Range Interpretation Comments KEPPRA (test code = 12-46 L 2578298762) LYNDSAY (test code = LYNDSAY) Therapeutic range: 12-46 ?g/mL ? ?Toxic: Not well established.Test developed and characteristics determined by [facility] Laboratory Services. Lab Interpretation Abnormal (test code = 31477-3) [facility] (Na, K, Cl, CO2, Glucose, BUN, Creatinine, Ca)2022-04-14 10:50:11 Test Item Value Reference Range Interpretation Comments NA (test code = 136 mmol/L 135-145 0127705334) K (test code = 3.8 mmol/L 3.5-5 3377907944) CL (test code = 105 mmol/L 98-108 5471859930) CO2 TOTAL (test code = 25 mmol/L 23-31 9607112365) AGAP (test code = 2-16 5473406021) BUN (test code = 9 mg/dL 7-23 3675446878) GLUCOSE (test code = 101 mg/dL 70-110 1921077986) CREATININE (test code = 0.66 mg/dL 0.5-1.04 3672768238) CALCIUM (test code = 8.1 mg/dL 8.6-10.6 L 9982131883) eGFR (test code = mL/min/1.73m2 8779818327) LYNDSAY (test code = LYNDSAY) Association of [...] tests). Lab Interpretation Abnormal (test code = 42618-4) [facility] SystemMagensium, [id number] 10:50:11 Test Item Value Reference Range Interpretation Comments MAGNESIUM (test code = 5178653349) 1.9 mg/dL 1.7-2.4 Lab Interpretation (test code = Normal 40880-3) [facility] SystemThyroid Stimulating [id number] 22:21:44 Test Item Value Reference Range Interpretation Comments TSH (test code = See_Comment Biotin has been 1889272378) reported to cau se a negative bias, interpret resul ts relative to autumn garcia's use of biotin. [Automated mess age] The system [employer] generated this result transmitted ref erence range: 0.45 - 4 .70 mIU/L. The refe rence range was not u sed to interpret this result as normal/abnor mal. Lab Interpretation (test Normal code = 84305-6) [facility] SystemGLYCOSYLATED HEMOGLOBIN (A1C)2022-04-13 21:53:43 Test Item Value Reference Range Interpretation Comments HGB A1C (test code = 5.8 % 4-5.7 H 4548-4) LYNDSAY (test code = LYNDSAY) Reference RangesNormal: <5.7%Prediabetes: 5.7 - 6.4%Diabetes: > 6.5% Lab Interpretation (test Abnormal code = 18823-4) [facility] (72621)(TOTAL CHOLESTEROL, TRIGLYCERIDES, HDL)2022-04-13 21:34:53 Test Item Value Reference Range Interpretation Comments CHOL (test code = 201 mg/dL 120-200 H 8099774801) HDL (test code = 56 mg/dL See_Comment [Automated message] 8415015261) The system [employer] generated this result transmit sherice reference range : >=50. The refer ence range was not u sed to interpret th is result as normal/abnormal . HDLC RATIO (test code = See_Comment [Au tomated message] 2481417696) The system [employer] generated this result transmit sherice reference range : <=4.5. The refe rence range was not u sed to interpret th is result as normal/abnormal . TRIG (test code = 355 mg/dL 30-170 H 8021546458) LDL CHOL (test code = 74 mg/dL See_Comment [Auto mated message] 66039-6) The system [employer] generated this result transmit sherice reference range : <=160. The refe rence range was not u sed to interpret th is result as normal/abnormal . VLDL (test code = 71 mg/dL 5-60 H 9134974137) Lab Interpretation (test Abnormal code = 08436-7) [facility] SystemTroponin I - Code [id number] 18:46:27 Test Item Value Reference Interpretation Comments Range TROPONIN I (test 0.013 ng/mL See_Comment [Automated code = 2614071322) message] The system which generated this result [...] biotin. Lab Interpretation Normal (test code = 21194-4) [facility] Metabolic Panel (NA, K, CL, CO2, Glucose, BUN, Creatinine, CA) - Code [id number] 18:35:07 Test Item Value Reference Range Interpretation Comments NA (test code = 136 mmol/L 135-145 3045064034) K (test code = 4.3 mmol/L 3.5-5 4409837771) CL (test code = 105 mmol/L 98-108 5497718622) CO2 TOTAL (test code = 27 mmol/L 23-31 6425762229) AGAP (test code = 2-16 9639888463) BUN (test code = 8 mg/dL 7-23 2901379323) GLUCOSE (test code = 130 mg/dL 70-110 H 0535909758) CREATININE (test code = 0.75 mg/dL 0.5-1.04 3827141624) CALCIUM (test code = 8.5 mg/dL 8.6-10.6 L 7391891096) eGFR (test code = mL/min/1.73m2 9240716108) LYNDSAY (test code = LYNDSAY) Association of [...] tests). Lab Interpretation Abnormal (test code = 40961-1) [facility] SystemaPTT - Code [id number] 18:32:46 Test Item Value Reference Range Interpretation Comments APTT Patient (test See_Comment [Automat ed code = 3173-2) message] The system which generated this result transmitted reference range : 23 - 38 Seconds . The reference range was not used to interpr et this result as normal/abnormal . LYNDSAY (test code = LYNDSAY) The [facility] patient population mean normal value for aPTT is 30 seconds. Lab Interpretation Normal (test code = 61956-3) [facility] SystemProthrombin Time / INR - Code [id number] 18:30:45 Test Item Value Reference Range Interpretation [...] tions. Lab Interpretation (test Normal code = 46431-3) [facility] SystemCB without Diff - Code [id number] 18:23:07 Test Item Value Reference Range Interpretation Comments WBC (test code = 6690-2) See_Comment [A utomated message] The system [employer] generated this result transmit sherice reference range : 4.30 - 11.10 10*3/?L. The reference range was not used to interpret this result as normal/abnormal . RBC (test code = 789-8) See_Comment [Au tomated message] The system [employer] generated this result transmit sherice reference range [...] See_Comment H [Au tomated message] The system [employer] generated this result transmit sherice reference range : 166 - 358 10*3/?L. The reference range was not used to interpret this result as normal/abnormal . MPV (test code = 8.1 fL 9.5-12.9 L 47693-7) RDW-CV (test code = 16.1 % 12-15.5 H 788-0) RDW-SD (test code = 49.2 fL 39-49.9 54108-1) NRBC x10^3 (test code = See_Comment [Au tomated message] 6044538831) The system [employer] generated this result transmit sherice reference range : 10*3/?L. The reference range was not used to interpret this result as normal/abnormal . NRBC/100 WBC (test code See_Comment [Au tomated message] = 7458215604) The system [facility] generated this result transmit sherice reference range : 0.0 - 10.0 /100 WBC s. The reference r zoe was not used to interpret this result as normal/abnormal . IPF % (test code = 9566175926) Lab Interpretation (test Abnormal code = 76110-5) [facility] SystemTROPONIN [id number] 21:06:40 Test Item Value Reference Interpretation Comments Range TROPONIN I (test 0.005 ng/mL See_Comment [Automated code = 8156635225) message] The system which generated this result [...] biotin. Lab Interpretation Normal (test code = 91290-0) [facility] SystemCOMP. METABOLIC PANEL (88897)2021-11-23 20:55:42 Test Item Value Reference Range Interpretation Comments NA (test code = 137 mmol/L 135-145 4938333244) K (test code = 4.3 mmol/L 3.5-5.0 9144526505) CL (test code = 104 mmol/L 98-108 1422189857) CO2 TOTAL (test code = 22 mmol/L 23-31 L 5160943021) AGAP (test code = 2-16 1475608811) BUN (test code = 15 mg/dL 7-23 1058907177) GLUCOSE (test code = 114 mg/dL 70-110 H 8454166572) CREATININE (test code = 0.68 mg/dL 0.50-1.04 4010251528) TOTAL BILI (test code = 0.5 mg/dL 0.1-1.6 1993448329) CALCIUM (test code = 9.1 mg/dL 8.6-10.6 1681065802) T PROTEIN (test code = 7.3 g/dL 6.3-8.2 2264321014) ALBUMIN (test code = 4.4 g/dL 3.5-5.0 3072360419) ALK PHOS (test code = 243 U/L 34-122 H 6948047453) ALTv (test code = 24 U/L 5-35 2-6) AST(SGOT) (test code = 30 U/L 13-40 7448112943) eGFR (test code = mL/min/1.73m2 6415933012) LYNDSAY (test code = LYNDSAY) Association of [...] tests). Lab Interpretation Abnormal (test code = 06107-4) [facility] SystemLIPASE2022-05-07 20:55:22 Test Item Value Reference Range Interpretation Comments LIPASE (test code = 2359185594) 96 U/L 0-220 Lab Interpretation (test code = Normal 80193-7) [facility] SystemPOCT [id number] 20:46:00 Test Item Value Reference Range Interpretation Comments POCT PREG (test code = 1605) negative On board controls acceptable with present C Line (test code = 3574) POCT PREG LOT # (test code = 3575) [id number] POCT PREG TEST DATE (test 04/18/2023 code = 3576) Lab Interpretation (test code = Normal 87278-5) [facility] WITH [id number] 20:40:38 Test Item Value Reference Range Interpretation Comments WBC (test code = See_Comment [Automated 7090-2) message] The sy stem which generated this [...] (test code = 53.7 fL 39.0-49.9 H 51468-6) RDW-CV (test code = 17.2 % 12.0-15.5 H 788-0) PLT (test code = See_Comment H [Automated 777-3) message] The sy stem which generated this result transmitted reference range : 166 - 358 10*3/ ?L. The reference r zoe was not used to interpret this result as normal/abnormal . MPV (test code = 8.5 fL 9.5-12.9 L 43332-3) NRBC/100 WBC (test See_Comment [Automat ed code = 5231077721) message] The system which generated this result transmitted reference range : 0.0 - 10.0 /100 WBCs. The refer ence range was not u sed to interpret th is result as normal/abnormal . NRBC x10^3 (test code <0.01 See_Comment [Auto mated = 2104749060) message] The s ystem which generated this result transmitted reference range : 10*3/?L. The reference range was not used to interpret this result as normal/abnormal . GRAN MAT (NEUT) % 53.7 % (test code = 770-8) IMM GRAN % (test code 0.90 % = 8821945007) LYMPH % (test code = 32.6 % 736-9) MONO % (test code = 10.1 % 5905-5) EOS % (test code = 1.5 % 713-8) BASO % (test code = 1.2 % 706-2) GRAN MAT x10^3(ANC) 4.98 10*3/uL 1.88-7.09 (test code = 2819075985) IMM GRAN x10^3 (test 0.08 10*3/uL 0.00-0.06 H code = 4950705316) LYMPH x10^3 (test code 3.02 10*3/uL 1.32-3.29 = 731-0) MONO x10^3 (test code 0.94 10*3/uL 0.33-0.92 H = 742-7) EOS x10^3 (test code = 0.14 10*3/uL 0.03-0.39 711-2) BASO x10^3 (test code 0.11 10*3/uL 0.01-0.07 H = 704-7) Lab Interpretation Abnormal (test code = 12994-2) [facility] SystemPOGA GLUCOSE (AUTOMATED)2021-11-23 20:17:33 Test Item Value Reference Range Interpretation Comments POCT GLU (test code = 111 mg/dL 70-110 H Notifi ed Provider 1540586853) Lab Interpretation (test Abnormal code = 40155-4) [facility] TEST, THINPREP, [id number] 00:00:00 Test Item Value Reference Range Interpretation Comments SOURCE: (test code = Endocervical 8001) SLIDES: (test code = 1 8011) LMP: (test code = 8021) 06/03/2021 SPECIMEN ADEQUACY: (test (NOTE) code = 24199) INTERPRETATION: (test ASCUS/EPITH. code = 29296) ABNORMALITY; SEE BELOW DIRECTOR OF LEARNING: (test Anusha code = 8101) CHANA Sepulveda(ASCP)[facility] PATHOLOGIST Nahid Russell, INTERPRETATION BY: (test M.D. code = 8122) LOCATION: (test code = (NOTE) 95023) CPT: (test code = 8140) (NOTE) PAP TEST, THINPREP, [id number] 00:00:00 Test Item Value Reference Range Interpretation Comments SOURCE: (test code = Endocervical 8001) SLIDES: (test code = 1 8011) LMP: (test code = 8021) 06/03/2021 SPECIMEN ADEQUACY: (test (NOTE) code = 23636) INTERPRETATION: (test ASCUS/EPITH. code = 73524) ABNORMALITY; SEE BELOW DIRECTOR OF LEARNING: (test Anusha code = 8101) CHANA Sepulveda(ASCP)[facility] PATHOLOGIST Nahid Russell, INTERPRETATION BY: (test M.D. code = 8122) LOCATION: (test code = (NOTE) 64853) CPT: (test code = 8140) (NOTE) PAP TEST, THINPREP, [id number] 00:00:00 Test Item Value Reference Range Interpretation Comments SOURCE: (test code = Endocervical 8001) SLIDES: (test code = 1 8011) LMP: (test code = 8021) 06/03/2021 SPECIMEN ADEQUACY: (test (NOTE) code = 59581) INTERPRETATION: (test ASCUS/EPITH. code = 86460) ABNORMALITY; SEE BELOW DIRECTOR OF LEARNING: (test Anusha code = 8101) CHANA Sepulveda(ASCP)[facility] PATHOLOGIST Nahid Russell, INTERPRETATION BY: (test M.D. code = 8122) LOCATION: (test code = (NOTE) 26519) CPT: (test code = 8140) (NOTE) PAP TEST, THINPREP, [id number] 00:00:00 Test Item Value Reference Range Interpretation Comments SOURCE: (test code = Endocervical 8001) SLIDES: (test code = 1 8011) LMP: (test code = 8021) 06/03/2021 SPECIMEN ADEQUACY: (test (NOTE) code = 21300) INTERPRETATION: (test ASCUS/EPITH. code = 55166) ABNORMALITY; SEE BELOW DIRECTOR OF LEARNING: (test Anusha code = 8101) CHANA Sepulveda(ASCP)[facility] PATHOLOGIST Nahid Russell, INTERPRETATION BY: (test M.D. code = 8122) LOCATION: (test code = (NOTE) 91294) CPT: (test code = 8140) (NOTE) HPV HIGH RISK WITH GENOTYPE, [id number] 00:00:00 Test Item Value Reference Range Interpretation Comments HPV HIGH RISK INTERP (test code = POSITIVE 37035) HPV 16 (test code = 32669) POSITIVE HPV 18 (test code = 70104) NEGATIVE HPV, HR, OTHER GENOTYPES (test code POSITIVE = 74530) HPV HIGH RISK WITH GENOTYPE, [id number] 00:00:00 Test Item Value Reference Range Interpretation Comments HPV HIGH RISK INTERP (test code = POSITIVE 38293) HPV 16 (test code = 02681) POSITIVE HPV 18 (test code = 84455) NEGATIVE HPV, HR, OTHER GENOTYPES (test code POSITIVE = 88526) HPV HIGH RISK WITH GENOTYPE, [id number] 00:00:00 Test Item Value Reference Range Interpretation Comments HPV HIGH RISK INTERP (test code = POSITIVE 21522) HPV 16 (test code = 44073) POSITIVE HPV 18 (test code = 38315) NEGATIVE HPV, HR, OTHER GENOTYPES (test code POSITIVE = 89374) HPV HIGH RISK WITH GENOTYPE, [id number] 00:00:00 Test Item Value Reference Range Interpretation Comments HPV HIGH RISK INTERP (test code = POSITIVE 11551) HPV 16 (test code = 46905) POSITIVE HPV 18 (test code = 87747) NEGATIVE HPV, HR, OTHER GENOTYPES (test code POSITIVE = 13940) [id number] 03:22:48 Test Item Value Reference Range Interpretation Comments APPEARANCE (test code = Hazy Clear A 3350667192) COLOR (test code = Yellow Yellow 5610496728) PH (test code = 4.8-8.0 1640067819) SP GRAVITY (test code = 1.003-1.030 4290398774) GLU U QUAL (test code = Normal Normal 9706823225) BLOOD (test code = Negative Negative Interfere nce from 7834293793) ascorbic acid m ay cause false neg ative results. KETONES (test code = 5 mg/dL Negative A 4505875076) PROTEIN (test code = Negative Negative 2887-8) UROBILIN (test code = 4.0 mg/dL Normal A 1908251727) BILIRUBIN (test code = Negative Negative 5629755108) NITRITE (test code = Negative Negative 4764736082) LEUK GRUPO (test code = Negative Negative 0748195913) RBC/HPF (test code = See_Comment [Autom ated message] 1510652195) The system [employer] generated this result transmitted ref erence range: 0 - 3 HP F. The reference range was not used to int erpret this result as normal/abnormal . WBC/HPF (test code = <1 See_Comment [Autom ated message] 1197346816) The system [employer] generated this result transmitted ref erence range: 0 - 5 HP F. The reference range was not used to int erpret this result as normal/abnormal . BACTERIA (test code = Few Negative A 3226229319) SQ EPITH (test code = HPF 2665957154) Lab Interpretation Abnormal (test code = 11287-9) [facility]IN[facility]IS2021-[facility]-29 03:22:48 Test Item Value Reference Range Interpretation Comments APPEARANCE (test code = Hazy Clear A 0348982496) COLOR (test code = Yellow Yellow 5900151212) PH (test code = 4.8-8.0 4242186713) SP GRAVITY (test code = 1.003-1.030 1676776580) GLU U QUAL (test code = Normal Normal 7875958761) BLOOD (test code = Negative Negative 0057028740) KETONES (test code = 5 mg/dL Negative A 1425821719) PROTEIN (test code = Negative Negative 2887-8) UROBILIN (test code = 4.0 mg/dL Normal A 5820372799) BILIRUBIN (test code = Negative Negative 4285597383) NITRITE (test code = Negative Negative 7136680878) LEUK GRUPO (test code = Negative Negative 9391662544) RBC/HPF (test code = See_Comment [Autom ated message] 3394465100) The system [employer] generated this result transmit sherice reference range : 0 - 3 HPF. The refe rence range was not u sed to interpret th is result as normal/abnormal . WBC/HPF (test code = <1 See_Comment [Autom ated message] 5987386173) The system [employer] generated this result transmit sherice reference range : 0 - 5 HPF. The refe rence range was not u sed to interpret th is result as normal/abnormal . BACTERIA (test code = Few Negative A 4578786136) SQ EPITH (test code = HPF 3388937357) Lab Interpretation (test Abnormal code = 83639-6) [facility] [id number] 02:45:00 Test Item Value Reference Interpretation Comments Range TROPONIN I (test 0.002 ng/mL See_Comment [Automated code = 0102270690) message] The system which generated this result [...] biotin. Lab Interpretation Normal (test code = 58847-6) [facility] [id number] 02:45:00 Test Item Value Reference Range Interpretation Comments TROPONIN I (test code = 0.002 ng/mL See_Comment [Au tomated 5252383514) message] The sy stem which generated this result transmitted reference range : <=0.034. The reference range was not used to interpret this result as normal/abnormal . LYNDSAY (test code = LYNDSAY) Lab Interpretation Normal (test code = 24871-7) [facility] System[facility]MINAL [id number] 02:41:57 Test Item Value Reference Range Interpretation Comments NT-proBNP (test code 169 pg/mL See_Comment H [Autom ated = 8530948773) message] The system which generated this result transmitted reference range : <=125. The reference range was not used to interpret this result as normal/abnormal . LYNDSAY (test code = LYNDSAY) Biotin has been reported to cause a negative bias, interpret results relative to patient's use of biotin. Lab Interpretation Abnormal (test code = 70949-9) [facility] System[facility]MINAL [id number] 02:41:57 Test Item Value Reference Range Interpretation Comments NT-proBNP (test code = 169 pg/mL See_Comment H [Aut omated message] 1208876992) The system [employer] generated this result transmit sherice reference range : <=125. The refe rence range was not u sed to interpret th is result as normal/abnormal . LYNDSAY (test code = LYNDSAY) Lab Interpretation (test Abnormal code = 48316-8) [facility]OLIC [facility] (03280)2021-03-17 02:09:13 Test Item Value Reference Range Interpretation Comments NA (test code = 137 mmol/L 135-145 0452210187) K (test code = 4.2 mmol/L 3.5-5.0 5729287346) CL (test code = 102 mmol/L 98-108 2327576168) CO2 TOTAL (test code = 25 mmol/L 23-31 4756704980) AGAP (test code = 2-16 7677853596) BUN (test code = 18 mg/dL 7-23 7206031391) GLUCOSE (test code = 144 mg/dL 70-110 H 4007667181) CREATININE (test code = 0.77 mg/dL 0.50-1.04 5294714023) TOTAL BILI (test code = 0.4 mg/dL 0.1-1.6 6377466602) CALCIUM (test code = 8.9 mg/dL 8.6-10.6 2640970523) T PROTEIN (test code = 6.8 g/dL 6.3-8.2 0712564729) ALBUMIN (test code = 3.9 g/dL 3.5-5.0 9636723925) ALK PHOS (test code = 84 U/L 34-122 4858320508) ALTv (test code = 13 U/L 5-35 1742-6) AST(SGOT) (test code = 17 U/L 13-40 7868022316) eGFR (test code = mL/min/1.73m2 1021455012) LYNDSAY (test code = LYNDSAY) Association of [...] tests). Lab Interpretation Abnormal (test code = 21911-2) [facility]. METABOLIC PANEL (34099)2021-03-17 02:09:13 Test Item Value Reference Range Interpretation Comments NA (test code = 0657658627) 137 mmol/L 135-145 K (test code = 4702867108) 4.2 mmol/L 3.5-5.0 CL (test code = 8150724784) 102 mmol/L 98-108 CO2 TOTAL (test code = 1674874096) 25 mmol/L 23-31 AGAP (test code = 6447871995) 2-16 BUN (test code = 9957245791) 18 mg/dL 7-23 GLUCOSE (test code = 6881097715) 144 mg/dL 70-110 H CREATININE (test code = 0.77 mg/dL 0.50-1.04 8508822874) TOTAL BILI (test code = 0.4 mg/dL 0.1-1.4 5848884358) CALCIUM (test code = 3734249256) 8.9 mg/dL 8.6-10.6 T PROTEIN (test code = 6918887509) 6.8 g/dL 6.3-8.2 ALBUMIN (test code = 0097468530) 3.9 g/dL 3.5-5.0 ALK PHOS (test code = 3178288779) 84 U/L 34-122 ALTv (test code = 1742-6) 13 U/L 5-35 AST(SGOT) (test code = 9452074290) 17 U/L 13-40 eGFR (test code = 0478813870) mL/min/1.73m2 LYNDSAY (test code = LYNDSAY) Lab Interpretation (test code = Abnormal 27286-2) [facility] WITH [id number] 01:56:33 Test Item Value Reference Range Interpretation [...] (test code = 55.5 fL 39.0-49.9 H 27165-6) RDW-CV (test code = 18.9 % 12.0-15.5 H 788-0) PLT (test code = See_Comment H [Automated 777-3) message] The sy stem which generated this result transmitted reference range : 166 - 358 10*3/ ?L. The reference r zoe was not used to interpret this result as normal/abnormal . MPV (test code = 8.2 fL 9.5-12.9 L 33958-1) NRBC/100 WBC (test See_Comment [Automat ed code = 4296712904) message] The system which generated this result transmitted reference range : 0.0 - 10.0 /100 WBCs. The refer ence range was not u sed to interpret th is result as normal/abnormal . NRBC x10^3 (test code <0.01 See_Comment [Auto mated = 4517932855) message] The s ystem which generated this result transmitted reference range : 10*3/?L. The reference range was not used to interpret this result as normal/abnormal . GRAN MAT (NEUT) % 61.7 % (test code = 770-8) IMM GRAN % (test code 0.80 % = 5105435233) LYMPH % (test code = 28.5 % 736-9) MONO % (test code = 6.3 % 5905-5) EOS % (test code = 1.8 % 713-8) BASO % (test code = 0.9 % 706-2) GRAN MAT x10^3(ANC) 7.31 10*3/uL 1.88-7.09 H (test code = 0264128054) IMM GRAN x10^3 (test 0.09 10*3/uL 0.00-0.06 H code = 6883775719) LYMPH x10^3 (test code 3.38 10*3/uL 1.32-3.29 H = 731-0) MONO x10^3 (test code 0.75 10*3/uL 0.33-0.92 = 742-7) EOS x10^3 (test code = 0.21 10*3/uL 0.03-0.39 711-2) BASO x10^3 (test code 0.11 10*3/uL 0.01-0.07 H = 704-7) Lab Interpretation Abnormal (test code = 61117-0) [facility] WITH [id number] 01:56:33 Test Item Value Reference Range Interpretation [...] (test code = 55.5 fL 39.0-49.9 H 87063-5) RDW-CV (test code = 18.9 % 12.0-15.5 H 788-0) PLT (test code = See_Comment H [Automated 777-3) message] The sy stem which generated this result transmitted reference range : 166 - 358 10*3/ ?L. The reference r zoe was not used to interpret this result as normal/abnormal . MPV (test code = 8.2 fL 9.5-12.9 L 77807-3) NRBC/100 WBC (test See_Comment [Automat ed code = 1853185575) message] The system which generated this result transmitted reference range : 0.0 - 10.0 /100 WBCs. The refer ence range was not u sed to interpret th is result as normal/abnormal . NRBC x10^3 (test code <0.01 See_Comment [Auto mated = 2732039392) message] The s ystem which generated this result transmitted reference range : 10*3/?L. The reference range was not used to interpret this result as normal/abnormal . GRAN MAT (NEUT) % 61.7 % (test code = 770-8) IMM GRAN % (test code 0.80 % = 2417165196) LYMPH % (test code = 28.5 % 736-9) MONO % (test code = 6.3 % 5905-5) EOS % (test code = 1.8 % 713-8) BASO % (test code = 0.9 % 706-2) GRAN MAT x10^3(ANC) 7.31 10*3/uL 1.88-7.09 H (test code = 3339673039) IMM GRAN x10^3 (test 0.09 10*3/uL 0.00-0.06 H code = 2342183707) LYMPH x10^3 (test code 3.38 10*3/uL 1.32-3.29 H = 731-0) MONO x10^3 (test code 0.75 10*3/uL 0.33-0.92 = 742-7) EOS x10^3 (test code = 0.21 10*3/uL 0.03-0.39 711-2) BASO x10^3 (test code 0.11 10*3/uL 0.01-0.07 H = 704-7) Lab Interpretation Abnormal (test code = 49940-6) [facility]APID [facility])2021-03-17 01:38:12 Test Item Value Reference Range Interpretation Comments SARS-CoV-2 Rapid ID NOW Not Detected Not Detected (test code = 54390-9) LYNDSAY (test code = LYNDSAY) ID NOW COVID-19 Assay is an isothermal nucleic acid amplification test intended for the qualitative detection of nucleic acid from SARS-CoV-2 viral RNA in nasopharyngeal (RETAIL SALES[employer]) specimens. It is used under Emergency Use [...] indicated. Lab Interpretation Normal (test code = 10553-0) [facility] NOW RAPID TESTING)2021-03-17 01:38:12 Test Item Value Reference Range Interpretation Comments SARS-CoV-2 Rapid ID NOW (test Not Detected Not Detected code = 81521-7) LYNDSAY (test code = LYNDSAY) Lab Interpretation (test code = Normal 08619-1) [facility]2021-[facility]-19 17:42:45 Test Item Value Reference Range Interpretation Comments SARS-CoV-2 Rapid ID NOW Not Detected Not Detected (test code = 33930-3) LYNDSAY (test code = LYNDSAY) ID NOW COVID-19 Assay is an isothermal nucleic acid amplification test intended for the qualitative detection of nucleic acid from SARS-CoV-2 viral RNA in nasopharyngeal (RETAIL SALES[employer]ER) specimens. It is used under Emergency Use [...] indicated. Lab Interpretation Normal (test code = 77745-8) [facility]BDOMEN PELVIS W [id number] 17:24:55Thickening of the gastric antrum and duodenal [...] 02/19/2021 12:26 PM CDT Patient name: EUSEBIA GUY: 1970 51 years [...] nodularity of the left adrenal gland.RL: 8722 [facility] System[facility]inalysis2021-08-03 17:03:40 Test Item Value Reference Range Interpretation Comments APPEARANCE (test code = Hazy Clear A 7715444560) COLOR (test code = Mabel Yellow A 5563549112) PH (test code = 4.8-8.0 0988746669) SP GRAVITY (test code = 1.003-1.030 H 5239844467) GLU U QUAL (test code = Normal Normal 7175333942) BLOOD (test code = Negative Negative 1614144287) KETONES (test code = 5 mg/dL Negative A 1321103819) PROTEIN (test code = 30 mg/dL Negative A 2887-8) UROBILIN (test code = 4.0 mg/dL Normal A 7378529041) BILIRUBIN (test code = 4 mg/dL Negative A 0099846481) NITRITE (test code = Negative Negative 4858634792) [place]UPO (test code = Negative Negative 0854493649) RBC/HPF (test code = See_Comment H [Autom ated message] 7144548913) The system Nidmi generated this result transmit sherice reference range : 0 - 3 HPF. The refe rence range was not u sed to interpret th is result as normal/abnormal . WBC/HPF (test code = See_Comment H [Autom ated message] 8470421590) The system Nidmi generated this result transmit sherice reference range : 0 - 5 HPF. The refe rence range was not u sed to interpret th is result as normal/abnormal . BACTERIA (test code = Few Negative A 0130766640) MUCOUS (test code = Moderate Negative LPF A 9163598998) SQ EPITH (test code = HPF 0470949477) CA OXALATE (test code = See_Comment H [Au tomated message] 8634623931) The system Nidmi generated this result transmit sherice reference range : <=1 HPF. The refere nce range was not u sed to interpret th is result as normal/abnormal . Ictotest (test code = Negative 9058028372) Lab Interpretation (test Abnormal code = 08957-9) [facility] System[facility] Metabolic [id number] 16:34:55 Test Item Value Reference Range Interpretation Comments NA (test code = 139 mmol/L 135-145 1212163205) K (test code = 4.3 mmol/L 3.5-5.0 1030342859) CL (test code = 105 mmol/L 98-108 9980608788) CO2 TOTAL (test code 26 mmol/L 23-31 = 9966377454) AGAP (test code = 2-16 6874552306) BUN (test code = 11 mg/dL 7-23 9429193504) GLUCOSE (test code = 95 mg/dL 70-110 2139058030) CREATININE (test code 0.70 mg/dL 0.50-1.04 = 0383041374) TOTAL BILI (test code 0.6 mg/dL 0.1-1.1 = 5583470941) CALCIUM (test code = 8.9 mg/dL 8.6-10.6 7866194514) T PROTEIN (test code 7.7 g/dL 6.3-8.2 = 8647819614) ALBUMIN (test code = 4.1 g/dL 3.5-5.0 0507615097) ALK PHOS (test code = 79 U/L 34-122 4851846035) ALTv (test code = 10 U/L 5-35 1742-6) AST(SGOT) (test code 22 U/L 13-40 = 6200935195) eGFR (test code = mL/min/1.73m2 6016530822) LYNDSAY (test code = LYNDSAY) Association of [...] or urine or abnormalities in imaging tests). [facility] System[facility], [id number] 16:34:14 Test Item Value Reference Range Interpretation Comments LIPASE (test code = 4441482410) 45 U/L 0-220 Lab Interpretation (test code = Normal 02998-7) [facility] System[facility] with [id number] 16:21:12 Test Item Value Reference Range Interpretation [...] (test code = 54.4 fL 39.0-49.9 H 42790-5) RDW-CV (test code = 18.3 % 12.0-15.5 H 788-0) PLT (test code = See_Comment H [Automated 777-3) message] The sy stem which generated this result transmitted reference range : 166 - 358 10*3/ ?L. The reference r zoe was not used to interpret this result as normal/abnormal . MPV (test code = 8.5 fL 9.5-12.9 L 63523-3) NRBC/100 WBC (test See_Comment [Automat ed code = 2604133596) message] The system which generated this result transmitted reference range : 0.0 - 10.0 /100 WBCs. The refer ence range was not u sed to interpret th is result as normal/abnormal . NRBC x10^3 (test code <0.01 See_Comment [Auto mated = 7882306503) message] The s ystem which generated this result transmitted reference range : 10*3/?L. The reference range was not used to interpret this result as normal/abnormal . GRAN MAT (NEUT) % 78.3 % (test code = 770-8) IMM GRAN % (test code 0.40 % = 6274287076) LYMPH % (test code = 15.4 % 736-9) MONO % (test code = 4.8 % 5905-5) EOS % (test code = 0.1 % 713-8) BASO % (test code = 1.0 % 706-2) GRAN MAT x10^3(ANC) 7.15 10*3/uL 1.88-7.09 H (test code = 6457201239) IMM GRAN x10^3 (test 0.04 10*3/uL 0.00-0.06 code = 2766769966) LYMPH x10^3 (test code 1.41 10*3/uL 1.32-3.29 = 731-0) MONO x10^3 (test code 0.44 10*3/uL 0.33-0.92 = 742-7) EOS x10^3 (test code = <0.03 0.03-0.39 L 711-2) BASO x10^3 (test code 0.09 10*3/uL 0.01-0.07 H = 704-7) Lab Interpretation Abnormal (test code = 41518-6) [facility]
[2022-08-14] MEDS ORDERED: HYDROCODONE/APAP 10/325 TAB ONE (12:49)
[2022-08-14] MEDS ORDERED: KETOROLAC 30 MG/ML INJ ONE (12:49)
--- NOTE | 2022-08-14 13:11 | RAD REPORT ---
EXAM DESCRIPTION: CTSpine Lumbar Wo Con08/14/2022 12:55 pm CLINICAL HISTORY: Back pain status post fall COMPARISON: None TECHNIQUE: Computed axial tomography lumbar spine was obtained with coronal and sagittal reconstruct ion. All CT scans are performed using dose optimization technique as appropriate and may include automated exposure control or mA/KV adjustment according to patient size. FINDINGS: No fracture is seen. No dislocation Moderate spondylosis distal lumbar spine consisting disc space narrowing, vacuum phenomena and subcho ndral sclerosis. No high-grade central spinal stenosis noted IMPRESSION: Negative for a lumbar fracture. If patient continues have symptoms to suggest spinal canal pathology MRI would be recommended
--- NOTE | 2022-08-14 13:51 | RAD REPORT ---
EXAM DESCRIPTION: RAD - Hip Right 2 View - 08/14/2022 1:21 pm CLINICAL HISTORY: Right hip pain FINDINGS: No fracture or dislocation is seen. If the patient continues to have symptoms to suggest an occult fracture MRI would be recommended
--- NOTE | 2022-08-14 14:20 | EDPHYS ---
Physician Documentation [facility] Name: Heather Coon Age: 52 yrs Sex: Female : 1970 Arrival Date: 08/14/2022 Time: 12:33 Bed 2 Private MD: JACKELINE Physician Ryder Pierre HPI: 08/14 12:50 Patient is a 52-year-old with history of anxiety disorder also chronic pain of her jr11 lower back here with a fall, mechanical in nature, fell on her right side, complaining of lower back pain and right hip pain. Patient has not been ambulatory since her fall. Patient only takes Aleve for her chronic back pain. Not on blood thinners, denies hitting her head neck or any other parts of her body. Patient otherwise at baseline.. REIMBURSEMENT SPEC: 12:42 LMP N/A - Irregular menses ld1 Historical: - Allergies: 12:39 fluoxetine; ld1 12:39 Green Tea; ld1 - PMHx: 12:39 Anxiety; Bipolar disorder; Cancer-Cervical; Chronic obstructive lung disease; Chronic ld1 pain; Congestive heart failure; Depression; Diverticulitis; Herniated Back Disc; Hypertension; intestinal mass; Myocardial infarction; pt reports hx of seizures; Spastic Muscles; stroke; - PSHx: 12:39 Cholecystectomy; cervical fusion; foot; Tonsillectomy; ld1 - Immunization history:: Adult Immunizations up to date, Client reports having NOT received the Covid vaccine. - Social history:: Smoking status: Patient reports the use of cigarette tobacco products, smokes one-half pack cigarettes per day, Patient/guardian denies using alcohol. ROS: 12:50 All other systems are negative. jr11 Exam: 12:50 Constitutional: This is a well developed, well nourished patient who is awake, alert, jr11 and in no acute distress. Head/Face: Normocephalic, atraumatic. Eyes: Extra-ocular motions intact. Lids and lashes normal. Conjunctiva and sclera are non-icteric and not injected. Cornea within normal limits. Periorbital areas with no swelling, redness, or edema. ENT: Nares patent. No nasal discharge, no septal abnormalities noted. Oropharynx with no redness, swelling, or masses, exudates, or evidence of obstruction, uvula midline. Mucous membranes moist. Neck: Trachea midline, no thyromegaly or masses palpated, and no cervical lymphadenopathy. Supple, full range of motion without nuchal rigidity, or vertebral point tenderness. No Meningismus. Chest/axilla: Normal chest wall appearance and motion. Nontender with no deformity. No lesions are appreciated. Cardiovascular: Regular rate and rhythm with a normal S1 and S2. No gallops, murmurs, or rubs. Normal PMI, no JVD. No pulse deficits. Respiratory: Lungs have equal breath sounds bilaterally, clear to auscultation and percussion. No rales, rhonchi or wheezes noted. No increased work of breathing, no retractions or nasal flaring. Abdomen/GI: Soft, non-tender, with normal bowel sounds. No distension or tympany. No guarding or rebound. No evidence of tenderness throughout. MS/ Extremity: FROM except R hip and lower spine vanegas 2/2 pain, NV intact distally Vital Signs: 12:34 BP 142 / 78; Pulse 87; Resp 10; Temp 98.2(O); Pulse Ox 99% on R/A; Weight 92.99 kg; ld1 Height 5 ft. 6 in. (167.64 cm); Pain 10/10; 13:47 BP 139 / 89; Pulse 80; Resp 22; Pulse Ox 100% on R/A; Pain 10/10; ld1 12:34 Body Mass Index 33.09 (92.99 kg, 167.64 cm) ld1 MDM: 12:42 Patient medically screened. jr11 12:50 Differential diagnosis: hip fracture, intertrochanteric fracture, femoral neck jr11 fracture, femoral shaft fracture, bursitis, arthritis, strain. Data reviewed: vital signs, nurses notes. 14:18 Independent interpretation of the following test(s) in the Emergency Department X-Ray: jr11 My interpretation is no FX. External Records Reviewed: [facility] aware: T#3 #20 in May . Care significantly affected by the following chronic conditions: Obesity, chronic back pain, challenge in controlling pain vs causing resp depression. Response to treatment: the patient's symptoms have mildly improved after treatment. 08/14 12:43 Order name: CT Lumbar Spine Wo Con; Complete Time: 13:33 jr11 08/14 12:49 Order name: Hip Right 2 View; Complete Time: 14:00 EDMS Administered Medications: 12:51 Drug: Ketorolac 30 mg Route: IM; Site: right deltoid; ld1 12:52 Drug: [place] (HYDROcodone-acetaminophen) 10 mg-325 mg 1 tabs Route: PO; ld1 Disposition Summary: 08/14/22 14:19 Discharge Ordered Location: Home jr11 Condition: Stable jr11 Diagnosis - Low back pain jr11 - Contusion of right hip jr11 Discharge Instructions: - Discharge Summary Sheet jr11 - Musculoskeletal Pain jr11 - Heat Therapy jr11 - Back Exercises jr11 Forms: - Medication Reconciliation Form jr11 - Thank You Letter jr11 - Antibiotic Education jr11 - Prescription Opioid Use jr11 Prescriptions: - Cyclobenzaprine 10 mg Oral Tablet - take 1 tablet by ORAL route every 8 hours As needed; 30 tablet; Refills: 0, jr11 Product Selection Permitted Signatures: Dispatcher [employer] EDRandee Burgess RN RN ld1 Ryder Pierre MD MD jr11 Corrections: (The following items were deleted from the chart) 12:49 12:44 Hip Right 1 View+RAD.RAD.BRZ ordered. EDMS EDMS
--- NOTE | 2022-08-14 14:20 | ER ---
Nurse's Notes [facility] Name: Heather Coon Age: 52 yrs Sex: Female : 1970 Arrival Date: 08/14/2022 Time: 12:33 Bed 2 Private MD: Diagnosis: Low back pain;Contusion of right hip Presentation: 08/14 12:34 Chief complaint: EMS states: toned out to pt home for mechanical fall. Pt was walking ld1 out of bathroom, fell into wall - hit right hip then fell onto left hip. Denies LOC, not on blood thinners. Coronavirus screen: At this time, the client does not indicate any symptoms associated with coronavirus-19. Ebola Screen: No symptoms or risks identified at this time. Initial Sepsis Screen: Does the patient meet any 2 criteria? No. Patient's initial sepsis screen is negative. Does the patient have a suspected source of infection? No. Patient's initial sepsis screen is negative. Risk Assessment: Do you want to hurt yourself or someone else? Patient reports no desire to harm self or others. Onset of symptoms was August 14, 2022. 12:34 Method Of Arrival: EMS: [facility] ld1 12:34 Acuity: ANDER 4 ld1 Triage Assessment: 12:42 General: Appears in no apparent distress. uncomfortable, Behavior is calm, cooperative, ld1 appropriate for age. Pain: Complains of pain in right hip Pain does not radiate. Pain currently is 10 out of 10 on a pain scale. EENT: No signs and/or symptoms were reported regarding the EENT system. Neuro: Level of Consciousness is awake, alert, obeys commands, Oriented to person, place, time, situation. Cardiovascular: Capillary refill < 3 seconds Patient's skin is warm and dry. Rhythm is sinus rhythm. Respiratory: Airway is patent Respiratory effort is even, unlabored. GI: Abdomen is flat, non-distended. : No signs and/or symptoms were reported regarding the genitourinary system. Derm: No signs and/or symptoms reported regarding the dermatologic system. Musculoskeletal: No signs and/or symptoms reported regarding the musculoskeletal system. 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 - Social history:: Smoking status: Patient reports the use of cigarette tobacco products, smokes one-half pack cigarettes per day, Patient/guardian denies using alcohol. Screenin:43 [facility] ED Fall Risk Assessment (Adult) History of falling in the last 3 months, ld1 including since admission Yes- single mechanical fall (1 pt). Abuse screen: Denies threats or abuse. Denies injuries from another. Nutritional screening: No deficits noted. Tuberculosis screening: No symptoms or risk factors identified. Assessment: 12:43 Reassessment: See triage assessment. ld1 13:47 Reassessment: Pt requesting more pain medication for right hip. Notified ERP. Waiting ld1 on xray results at this time. 15:00 Reassessment: Patient appears in no apparent distress at this time. Patient and/or ld1 family updated on plan of care and expected duration. Pain level reassessed. Vital Signs: 12:34 BP 142 / 78; Pulse 87; Resp 10; Temp 98.2(O); Pulse Ox 99% on R/A; Weight 92.99 kg; ld1 Height 5 ft. 6 in. (167.64 cm); Pain 10/10; 13:47 BP 139 / 89; Pulse 80; Resp 22; Pulse Ox 100% on R/A; Pain 10/10; ld1 12:34 Body Mass Index 33.09 (92.99 kg, 167.64 cm) ld1 ED Course: 12:33 Patient arrived in ED. ld1 12:37 Ryder Pierre MD is Attending Physician. jr11 12:39 Triage completed. ld1 12:41 Randee Mccullough RN is Primary Nurse. ld1 12:42 Arm band placed on right wrist. ld1 12:43 Patient has correct armband on for positive identification. Placed in gown. Bed in low ld1 position. Call light in reach. Side rails up X2. ekg monitor on. Pulse ox on. NIBP on. Door closed. Noise minimized. Warm blanket given. 12:43 No provider procedures requiring assistance completed. ld1 12:56 CT Lumbar Spine Wo Con In Process Unspecified. EDMS 13:22 Hip Right 2 View In Process Unspecified. EDMS 15:00 IV discontinued, intact, bleeding controlled, No redness/swelling at site. ld1 Administered Medications: 12:51 Drug: Ketorolac 30 mg Route: IM; Site: right deltoid; ld1 12:52 Drug: [place] (HYDROcodone-acetaminophen) 10 mg-325 mg 1 tabs Route: PO; ld1 Medication: 12:43 VIS not applicable for this client. ld1 Outcome: 14:19 Discharge ordered by . cinthya 15:00 Discharged to home ambulatory. ld1 15:00 Condition: stable 15:00 Discharge instructions given to patient, Instructed on discharge instructions, follow up and referral plans. Demonstrated understanding of instructions, follow-up care, medications, Prescriptions given X 2. 15:28 Patient left the ED. ld1 Signatures: Dispatcher [employer] EDNV Randee Mccullough RN RN ld1 Ryder Pierre MD MD jr11
[2022-08-14 15:39] VITALS: TEMP 98.2
[2022-08-14 15:40] VITALS: BP 139/89; O2SAT 100
== END 2022-08-14 15:28 | disposition home or self-care (01) ==
LOC: ER 12:32
DX: S70.01XA Contusion of right hip, initial encounter (principal); M54.50 Low back pain, unspecified
CPT/HCPCS: 72131; 96372; 99284

== ENCOUNTER 2022-08-29 16:14 | Emergency (ER) | payer SELFPAY ==
--- OUTSIDE RECORDS SUMMARY | 2022-08-29 16:46 | XMS REPORT | Continuity of Care Document ---
:1970 Author Organization [facility] t Address [address] [place] [address] Care Team Providers Name Role Phone Aneta Silva Primary Care Physician [phone] Rk CAMPOS, Shy Stoner Attending Clinician Halima Mendoza MD Attending Clinician Jen Yepez MD Attending [...] Attending Clinician Glory Esteves MD Attending Clinician [phone] Selina Martines MD Attending Clinician Vaccine, Chung Pierson Attending Clinician Unavailable Jose Frederick MD Attending Clinician JOSE FREDERICK Attending Clinician Unavailable NICHELLE ALLISON Attending Clinician Unavailable Sully MOBILE TESTERNichelle Attending Clinician Doctor Unassigned, [place] Attending Clinician Unavailable Miky Nava RN Attending [...] Date S ource MEDICAID SSI PENDING 2022 2022 PENDING 00:00:00 00:00:00 Problems Condition Condition Condition Status Onset Resolution Last Treating Co mments Source Name Details Category Date Date Treatment Clinician Date Seizure Seizure Disease [facility] [place] [address] Center Cardiomyop Cardiomyop Disease Active U nivers athy athy 08-01 ity of 00:00: [address] Branch NSVT NSVT Disease Active Univers (nonsustai (nonsustai 08-01 it y of keisha keisha 00:00: [place] ventricula ventricula 00 Me dical r r [...] 00:00: [place] involving involving 00 Medi kwame [place] coronary coronary artery of artery of [place] heart heart without without angina angina pectoris pectoris Snores Snores Disease Active Univers 1-12 ity of 00:00: [place] [facility] Cigarette Cigarette Disease Active Uni vers smoker smoker 1-12 ity of 00:00: [place] [facility] Primary Primary Disease Active Univers hypertensi hypertensi 1-12 it y of on on 00:00: [place] [facility] Other Other Disease Active Univers hyperlipid hyperlipid 1-12 it y of emia emia 00:00: [place] [facility] Chronic Chronic Disease Active 2021-07 [...] e symptoms 9-25 it y of 00:00: [place] [facility] Bipolar Bipolar Disease Active Univers [...] spinal 09-27 ity of stenosis stenosis 00:00: [place] [facility] Right-side Right-side Disease Active U nivers d low back d low back 3 it y of pain with pain with 00:[place] sciatica[place], 00 Medi kwame sciatica sciatica Branch laterality laterality unspecifie unspecifie d d Generalize Generalize Disease Active U nivers d anxiety d anxiety 09-27 ity of disorder disorder 00:00: [place] [facility] Agoraphobi Agoraphobi Disease Active U nivers a a 3 ity of 00:00: [place] [facility] Bipolar Bipolar Disease Active Univers disorder, disorder, 09-27 ity of in partial [place] remission, remission, 00 Me dical most most Branch recent recent episode episode manic manic 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 09-27 it y of disorder disorder 00:00: [place] [facility] COPD COPD Disease Active Univers (chronic (chronic 09-17 ity of obstructiv obstructiv 00:[place]: [place] e e 00 Medical pulmonary pulmonary Bran ch disease) disease) Obesity Obesity Disease Active Univers 3- ity of 00:00: [place] [facility] Breast Breast Disease Active Univers mass, left mass, left 3 it y of 00:00: [place] [facility] Anxiety Anxiety Disease Active Univers 3 ity of 00:00: [place] [facility] Lower back Lower back Disease Active U nivers pain pain 3- ity of 00:00: [place] [facility] High blood High blood Disease Active U nivers pressure pressure 3- ity of 00:00: [place] [facility] Allergies, Adverse Reactions, Alerts Allergy Allergy Status Severity Reaction(s) Onset Inactive Treating Comm ents Source Name Type Date Date Clinician Amaury Clayton [facility] adverse 00:[facility]: Medical reaction 00 Center s Fluoxeti Propensi Active Rash [facility] adverse 00:00: Medical reaction 00 Center s GREEN Allergy Active [facility] TEA 08-02 00:00: 00 FLUOXETI Allergy Active Med Rash [facility]: Medical 00 Center Fluoxeti Propensi Active Unknown - Uni vers ne ty to See comments 03-25 ity of adverse 00:00: [place] reaction 00 Medical s Branch FLUOXETI DRUG Active Unknown-Cmnt Un lois NE INGREDI 03-25 ity of 00:00: [place] 00 Medical Branch DICLOFEN DRUG Active HYPERTENSION Un lois AC INGREDI 11-20 ity of 00:00: [place] 00 Medical Branch Diclofen Propensi Active Hypertension 2015- Univers ac ty to 11-20 ity of adverse 00:00: [place] reaction 00 Medical s Branch GREEN DRUG Active Med Other-Cmnt Univer s TEA INGREDI 08-10 ity of 00:00: [place] 00 Medical Branch Green Propensi Active Other - See 2015- Seizures U nivers Tea ty to comments [...] Stop Date Source Natural mother Alcohol abuse [facility] Natural mother Cancer [facility] Natural mother Diabetes [facility] Natural mother Heart disease [facility] Natural mother Hyperlipidemia [facility] Natural mother Kidney disease [facility] Natural mother Stroke [facility] Paternal uncle Diabetes [facility] Social History Social Habit Start Date Stop Date Quantity Comments Source History of tobacco Passive smoker Un iversity of use [place] [facility] History SDOH Social Unive rsity of Connections Get [place] Med ical Together Branch History SDOH Social Unive rsity of Connections [facility] Medical Branch History SDOH Social Unive rsity of Connections [place] [facility] Membership Branch History SDOH Social Unive rsity of Connections [place] [facility] Meetings Branch History SDOH [facility] [...] Alcohol Comment 00:00:00 00:00:00 of beer Medical C enter Cigarettes smoked 2022-08-02 2022-08-[address] [...] 1 Univers ity of Scarcity 00:00:00 00:00:00 [place] [facility] History SDOH 2022-08-01 2022-08-01 2 University o f Transport Med 00:00:00 00:00:00 [place] [facility] History SDOH 2022-08-01 2022-08-01 2 University o f Transport Non-Med 00:00:00 00:00:00 [place] M edical [facility] Cigarette 2022-07-31 2022-07-31 University of pack-years 00:00:00 00:00:00 [facility] Education 2022-07-31 2022-07-31 14 University of 00:00:00 00:00:00 [facility] Sex Ass[birth year] At [birth year] [facility] 00:00:00 00:00:00 [facility] Center Smoking Status Start Date Stop Date Source Current every day smoker 2022-08-02 00:00:00 [facility] Medications Ordered Filled Start Stop [...] Yes 40mg 40 mg, Univ ers (DELTASONE) -14 08-07 Oral, ity of tablet 40 15:00: [...] 1,000 First dose Branch mg/100 mL on Thu RTU 08/01/22 at 1800, Until Discontinu ed, Administer over 15 Minutes, 100 mL MULTIVITAMI 2022-0 Yes 1{tbl} Take 1 Tab Univers N ORAL 1-13 by mouth ity of 23:49: daily. [place] [address] Medical Branch omega-3 2022-0 Yes 1g Take 1 g Univer s fatty 1-13 by mouth ity of acids-vitam 23:49: [place]. [place] in E (FISH 34 Medical OIL) 1,000 Branch mg capsule loratadine 2022-0 Yes Take by Univ ers (CLARITIN 1-13 mouth ity of LIQUI-GEL) 23:49: daily. [place] 10 mg 34 Medical capsule Branch ondansetron 2022-0 Yes 4mg Take 4 mg U nivers 4 mg tablet 1-13 by mouth ity of 23:49: every 8 [place] [address] (eight) Medical hours as Branch needed. pantoprazol 3-0 Yes 40mg Take 40 mg Univers e 40 mg EC 1-13 by mouth ity o f tablet 23:49: daily. [place] [address] Medical Branch MULTIVITAMI 2022-0 Yes 1{tbl} Take 1 Tab Univers N ORAL 1-13 by mouth ity of 23:49: daily. [place] [address] Medical Branch omega-3 2022-0 Yes 1g Take 1 g Univer s fatty 1-13 by mouth ity of acids-vitam 23:49: [place]. [place] (FISH 34 Medical OIL) 1,000 Branch mg capsule loratadine 2022-0 Yes Take by Univ ers (CLARITIN 1-13 mouth ity of LIQUI-GEL) 23:49: daily. [place] 10 mg 34 Medical capsule Branch ondansetron 3-0 Yes 4mg Take 4 mg U nivers 4 mg tablet 1-13 by mouth ity of 23:49: every 8 [place] [address] (eight) Medical hours as Branch needed. pantoprazol 2023-0 Yes 40mg Take 40 mg Univers e 40 mg EC 1-13 by mouth ity o f tablet 23:49: daily. [place] [address] Medical Branch MULTIVITAMI 2022-0 Yes 1{tbl} Take 1 Tab Univers N ORAL 1-13 by mouth ity of 23:49: daily. [place] [address] Medical Branch omega-3 2022-0 Yes 1g Take 1 g Univer s fatty -13 by mouth ity of acids-vitam 23:49: daily. [place] in [place] (FISH 34 Medical OIL) 1,000 Branch mg capsule loratadine 2022-0 Yes Take by Univ ers (CLARITIN - mouth ity of LIQUI-GEL) 23:49: daily. [place] 10 mg 34 Medical capsule Branch ondansetron 2022-0 Yes 4mg Take 4 mg U nivers 4 mg tablet 13 by mouth ity of 23:49: every 8 [place] 34 (eight) Medical hours as Branch needed. pantoprazol 2022-0 Yes 40mg Take 40 mg Univers e 40 mg EC 08-01 by mouth ity o f tablet 23:49: daily. [place] [address] Medical Branch benzonatate 2022-0 Yes 100mg 100 mg, Un lois (TESSALON 1-13 Oral, Q8H, ity of PERLES) 20:00: First dose [place] capsule 100 00 on Fri Medica l mg 08/01/22 at Branch 1400, Until Discontinu ed, Routine ipratropium 3-0 Yes 3mL 3 mL, Unive rs -albuteroL 08-01 Inhalation ity of (DUONEB) 18:00: , QIDJose Miguel 0.5 mg-3 00 First dose Medic al mg(2.5 mg on Fri Branch base)/3 mL 08/01/22 at nebulizer 1200, solution 3 Until mL Discontinu ed, Routine ipratropium 3-0 Yes 3mL 3 mL, Unive rs -albuteroL - Inhalation ity of (DUONEB) 17:07: , QIDPRN, [place] 0.5 mg-3 07 Starting Medical mg(2.5 mg on Fri Branch base)/3 mL 08/01/22 at nebulizer 1107, solution 3 Until mL Discontinu ed, MICHAEL, Wheezing, Shortness of Breath sulfur 3-0 2023- No [id number] 5mL 5 mL, Unive rs hexafluorid 08-01-13 Intravenou i ty of e microsphr 17:00: 17:00 s, ONCE, 1 [place] (LUMASON) 00 :00 dose, On Medica l injection 5 Fri Branch mL 08/01/22 at 1100, Routine
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 : TCWOODY pantoprazol Yes 40mg 40 mg, Univ ers [...] Administer over 15 Minutes, 100 mL LORazepam 0 Yes 1mg 1 mg, Slow Un lois (ATIVAN) 08-01 IV Push, ity of injection 1 05:52: Q4HPRN, [place] mg 54 Starting Medical on [facility] 07/31/22 at 2352, Until Discontinu ed, Routine, Seizures, Agitation, Anxiety, ETOH / Cocaine Withdrawl foLIC acid 2022-0 Yes 1mg 1 mg, Univer s (FOLATE) 13 Oral, ity of tablet 1 mg 05:45: DAILY, [place] 00 First dose Medical on [facility] 07/31/22 at 2345, Until Discontinu ed, Routine thiamine 2022-0 Yes 100mg 100 mg, Unive rs (VITAMIN 13 Oral, ity of B1) tablet 05:45: DAILY, [place] 100 mg 00 First dose Medical on [facility] 07/31/22 at 2345, Until Discontinu ed, Routine LORazepam 2022- No .5mg 0.5 mg, Univ ers (ATIVAN) 08-01 Slow IV ity of injection 05:30: 05:29 Push, [place] 0.5 mg 00 :00 ONCE, 1 Medical dose, On [facility] 07/31/22 at 2330, MICHAEL atorvastati 0 Yes 40mg 40 mg, Univ ers n (LIPITOR) 08-01 Oral, QHS, it y of tablet 40 03:00: [place] dose [place] mg 00 on [facility] 07/31/22 at Branch 2100, Until Discontinu ed, Routine diphenhydrA 0 Yes 25mg 25 mg, Univ ers MINE 08-01 Oral, ity of (BENADRYL) 00:32: Q6HPRN, [place] tablet 25 02 Starting Medica l mg on [facility] 07/31/22 at 1832, Until Discontinu ed, Routine, Itching enoxaparin 0 Yes 40mg 40 mg, Unive rs (LOVENOX) 07-31 Subcutaneo ity of injection 23:00: us, DAILY, [place] 40 mg 00 First dose Medical on [facility] 07/31/22 at 1700, Until Discontinu ed, Routine morpHINE (2 2022- No 2mg 2 mg, Slow Univers mg/mL) 07-31 IV Push, ity of injection 2 23:00: 22:29 ONCE, 1 [place] mg 00 :00 dose, On Medical [facility] 07/31/22 at 1700, Routine HYDROcodone 2022-0 Yes 1{tbl} 1 tablet, Univers -acetaminop 12 Oral, ity of hen (NORCO) 22:01: Q6HPRN, [place] as 10-325 mg 36 Starting Medica l tablet 1 on [facility] Branch tablet 07/31/22 at 1601, Until Discontinu ed, Routine, Pain (scale 7-10) HYDROcodone 2022-0 2022- Yes 1{tbl} 1 tablet, Univers -acetaminop 07-3114 Oral, ity of hen (NORCO 22:01: 22:00 Q6HPRN, [place] 5) 5-325 mg 34 :34 Starting Medi kwame tablet 1 on [facility] Branch tablet 07/31/22 at 1601, Until [...] at 1415, Until Discontinu ed, Routine methylpredn 2022-0 2022- No 125mg 125 mg, U nivers isolone sod 1-12 01-12 Slow IV ity of succ 19:30: 18:54 Push, ONCE [place] (SOLU-MEDRO 00 :00 NOW, 1 Medica l L) dose, On Branch injection Arpita 125 mg 07/31/22 at 1330, MICHAEL ipratropium 2022- No 3mL 3 mL, [facility] ers -albuteroL -12 12 Inhalation it y of (DUONEB) 19:30: 18:48 , ONCE, 1 [place] 0.5 mg-3 00 :00 dose, On Medical mg(2.5 mg [place] Branch base)/3 mL 07/31/22 at nebulizer 1330, MICHAEL solution 3 mL pantoprazol Yes 40mg Take 40 mg Univers e 40 mg EC 12 by mouth ity o f tablet 17:15: daily. [place] 40 Medical Branch MULTIVITAMI Yes 1{tbl} Take 1 Tab Univers N ORAL 12 by mouth ity of 15:50: daily. [place] 57 Medical Branch loratadine Yes Take by [facility] ers (CLARITIN 12 mouth ity of LIQUI-GEL) 15:50: daily. [place] 10 mg 57 Medical capsule Branch ondansetron Yes 4mg Take 4 mg U nivers 4 mg tablet 12 by mouth ity of 15:50: every 8 [place] 57 (eight) Medical hours as Branch needed. omega-3 Yes 1g Take 1 g [facility] by mouth ity of acids-vitam 15:21: daily. [place] in [place] (FISH 27 Medical OIL) 1,000 Branch mg capsule TAKE ONE No (1) 1-09 TABLET(S) 00:00: BY MOUTH 00 THREE TIMES A DAY NEEDED. Methylpredn 2021-07- No [id number] 4mg Take 1 Univers isolone 4 0-22 10-24 tablet ity of mg tablet 00:00: 04:59 through [place] 00 :00 enteral Medical tube in Branch the morning for 1 dose. Methylpredn 2021-07- No [id number] 4mg Take 1 Univers isolone 4 0-21 10-23 tablet ity of mg tablet 00:00: 04:59 through [place] 00 :00 enteral Medical tube every Branch 12 (twelve) hours for 2 doses. MULTIVITAMI 2021-07 Yes 1{tbl} Take 1 Tab Univers N ORAL 0-20 by mouth ity of 14:44: daily. [place] 48 Medical Branch omega-3 2021-07 Yes 1g Take 1 g Univer s fatty 0-20 by mouth ity of acids-vitam 14:44: daily. [place] in [place] (FISH 48 Medical OIL) 1,000 Branch mg capsule loratadine 2021-07 Yes Take by [facility] ers (CLARITIN 0-20 mouth ity of LIQUI-GEL) 14:44: daily. [place] 10 mg 48 Medical capsule Branch ondansetron 2021-07 Yes 4mg Take 4 mg U nivers (ZOFRAN) 4 0-20 by mouth ity o f mg tablet 14:44: every 8 [place] 48 (eight) Medical hours as Branch needed. pantoprazol 2021-07 Yes 40mg Take 40 mg Univers e 0-20 by mouth ity of (PROTONIX) 14:44: daily. [place] 40 mg EC 48 Medical tablet Branch DULoxetine 2021-07 Yes 30mg 30 mg, Unive rs (CYMBALTA) 0-20 Oral, ity of capsule 30 14:00: DAILY, [place] mg 00 First dose Medical on [facility] Branch 05/08/22 at 0900, Until Discontinu ed, Routine divalproex 2021-07 Yes 1000mg 1,000 mg, Univers (DEPAKOTE) 0-20 Oral, BID, ity of EC tablet 13:00: First dose [place] 1,000 mg 00 (after Medical last Branch modificati on) on [facility] 05/08/22 at 0800, Until Discontinu ed, Routine Methylpredn 2021-07- No 4mg 4 mg, [facility] ers isolone 0-20 10-21 Oral, Q8H ity of (MEDROL) 08:50: 08:59 TAPER, 3 [place] tablet 4 mg 10 :00 doses, Medica l First dose Branch on [facility] 05/08/22 at 0400, Last dose on [facility] 05/08/22 at 2000, Routine acetaminoph 2021-07 Yes 1{tbl} 1 tablet, Univers en-codeine 0-20 Oral, ity of (TYLENOL 04:07: Q4HPRN, [place] #3) 300-30 01 Starting Medic al mg [...] Discontinu ed, Routine, Anxiety cyclobenzap 2021-07 Yes [id number] 5mg Take 1 Univers rine 5 mg 0-20 tablet by ity o f tablet 00:00: mouth in [place] [address] the Medical morning [place] and 1 tablet at noon and 1 tablet in the evening. cyclobenzap 2021-07 Yes [id number] 5mg Take 1 Univers rine 5 mg 0-20 tablet by ity o f tablet 00:00: mouth in [place] [address] the Medical morning Branch and 1 tablet at noon and 1 tablet in the evening. cyclobenzap 2021-07 Yes [id number] 5mg Take 1 Univers rine 5 mg 0-20 tablet by ity o f tablet 00:00: mouth in [place] [address] the Medical morning Branch and 1 tablet at noon and 1 tablet in the evening. cyclobenzap 2021-07 Yes [id number] 5mg Take 1 Univers rine 5 mg 0-20 tablet by ity o f tablet 00:00: mouth in [place] [address] the Medical morning Branch and 1 tablet at noon and 1 tablet in the evening. cyclobenzap 2021-07 Yes [id number] 5mg Take 1 Univers rine 5 mg 0-20 tablet by ity o f tablet 00:00: mouth in [address] morning Branch and 1 tablet at noon and 1 tablet in the evening. DULoxetine 2021-07 No [id number] 60mg Take 2 Univers (CYMBALTA) 0-20 11-20 capsules ity of 30 mg 00:00: 05:59 by mouth [place] capsule 00 :00 in the Medical morning Branch for 30 days. divalproex 2021-07- No [id number] 750mg Take 3 Univers (DEPAKOTE) 0-20 11-20 tablets by it y of 250 mg EC 00:00: 05:59 mouth [place] tablet 00 :00 every 8 Medical (eight) Branch hours for 30 days. LORazepam 1 2021-07- No [id number] 1mg Take 1 Univers mg tablet 0-20 [...] Indication s: acute pain Methylpredn 2021-07- No [id number] 4mg Take 1 Univers isolone 4 0-20 -22 tablet by ity of mg tablet 00:00: 04:59 mouth [place] 00 :00 every 8 Medical (eight) Branch hours for 3 doses. divalproex 2021-07- No 750mg 750 mg, Un lois (DEPAKOTE) 0-19 10-20 Oral, BID, it y of EC tablet 01:00: 09:40 First dose [place] 750 mg 00 :23 on [facility] 05/06/22 Branch at 2000, Until Discontinu ed, Routine levETIRAcet 2021-07- No 1500mg 1,500 mg, Univers am (KEPPRA) 0-18 10-18 Oral, BID, i ty of tablet 13:00: 18:38 First dose [place] 1,500 mg 00 :22 (after Medical last Branch modificati on) on [facility] 05/06/22 at 0800, Until Discontinu ed, Routine levETIRAcet 2021-07- No 1000mg 1,000 mg, Univers am (KEPPRA) 0-18 10-18 IV ity of in NACL 05:00: 05:46 Piggyback, [place] as (ISO-OS) 00 :00 ONCE, 1 Medical 1,000 dose, On [place] mg/100 mL Tue RTU 05/06/22 at 0000, Administer over 15 Minutes, 100 mL methocarbam 2021-07 No 500mg 500 mg, U nivers oL 0-18 -18 Oral, QID, ity of (ROBAXIN) 02:15: 23:21 First dose [place] tablet 500 00 :[address] [facility] Medical mg 05/05/22 Branch at 2115, Until Discontinu ed, Routine LORazepam 2021-07 No 2mg 2 mg, Univer s (ATIVAN) 0-18 05-06 Oral, ity of tablet 2 mg 01:30: 01:03 ONCE, 1 [place] 00 :00 dose, On [facility] 05/05/22 at 2030, Routine levETIRAcet 2021-07- No 1000mg 1,000 mg, Univers am (KEPPRA) 0-18 05-06 Oral, BID, i ty of tablet 01:00: 04:48 First dose [place] 1,000 mg 00 :06 on [facility] 05/05/22 Branch at 2000, Until Discontinu ed, Routine enoxaparin 2021-07 Yes 40mg 40 mg, Unive rs (LOVENOX) 0-18 Subcutaneo ity of injection 00:15: us, Q24H, [place] as 40 mg 00 First dose Medical on [facility] 05/05/22 at 1915, Until Discontinu ed, Routine levETIRAcet 2021-07 No 1000mg 1,000 mg, Univers am (KEPPRA) 0-17 10-17 IV ity of in NACL 19:45: 20:05 Piggyback, [place] as (ISO-OS) 00 :00 ONCE, 1 Medical 1,000 dose, On [place] mg/[address] [facility] RTU 05/05/22 at 1445, Administer over 15 Minutes, 100 mL clonazePAM 2021-07 Yes .5mg 0.5 mg, Univ ers (KLONOPIN) 0-17 Oral, BID, ity of tablet 0.5 19:30: First dose [place] mg 00 on [facility] 05/05/22 Branch at 1430, Until Discontinu ed, Routine ibuprofen 2021-07 Yes 600mg 600 mg, Univ ers (IBU) 0-17 Oral, TID ity of tablet 600 19:30: MEALS, [place] mg 00 First dose Medical on [facility] 05/05/22 at 1430, Until Discontinu ed, Routine gabapentin 2021-07 Yes 300mg 300 mg, Uni vers (NEURONTIN) 0-17 Oral, TID, it y of capsule 300 19:30: First dose [place] mg 00 on [facility] 05/05/22 Branch at 1430, Until Discontinu ed, Routine cyclobenzap 2021-07 Yes 5mg 5 mg, Unive rs rine 0-17 Oral, TID, ity of (FLEXERIL) 19:30: First dose [place] tablet [address] [facility] Medica l 05/05/22 Branch at 1430, Until Discontinu ed, Routine acetaminoph 2021-07 Yes 1000mg 1,000 mg, Univers en 0-17 Oral, Q8H, ity of (TYLENOL) 19:30: First dose [place] tablet 00 on [facility] 1,000 mg 05/05/22 Branch at 1430, Until Discontinu ed, Routine pantoprazol 2021-07 Yes 40mg 40 mg, Univ ers e 0-17 Oral, ity of (PROTONIX) 14:00: DAILY, [place] EC tablet 00 First dose Medi kwame 40 mg on [facility] 05/05/22 at 0900, Until Discontinu ed, Routine docusate 2021-07 Yes 100mg 100 mg, Unive rs (COLACE) 0-17 Oral, ity of capsule 100 14:00: DAILY, [place] mg 00 First dose Medical on [facility] 05/05/22 at 0900, Until Discontinu ed, Routine HYDROcodone 2021-07- No 1{tbl} 1 tablet, Univers -acetaminop 0-17 10-17 Oral, ity of hen (NORCO) 10:32: 19:18 Q6HPRN, [place] 10-325 mg 02 :52 Starting Medica l tablet 1 on [facility] tablet 05/05/22 at 0532, Until [facility] 05/05/22 at 1418, Routine, Pain (scale 7-10) ondansetron 2021-07 Yes 4mg 4 mg, Slow Univers (ZOFRAN 0-17 IV Push, ity of (PF)) 06:49: Q6HPRN, [place] injection 4 57 Starting Medi kwame mg on [facility] Branch 05/05/22 at 0149, Until Discontinu ed, Routine, Nausea and Vomiting (N/V) HYDROcodone 2021-07- No 1{tbl} 1 tablet, Univers -acetaminop 005-05 Oral, ity of hen (NORCO 06:49: 10:32 Q6HPRN, [place] as 5) 5-325 mg 41 :14 Starting Medi kwame tablet 1 on [facility] tablet 05/05/22 at 0149, Until [facility] 05/05/22 at 0532, Routine, Pain (scale 7-10) acetaminoph 2021-07 No 325mg 325 mg, U nivers en 005-05 Oral, ity of (TYLENOL) 06:49: 19:18 Q4HPRN, [place] tablet 325 39 :52 Starting Medic al mg on [facility] 05/05/22 at 0149, Until [facility] 05/05/22 at 1418, Routine, Pain (scale 4-6) ondansetron 2021-07- No 4mg 4 mg, Univ ers (ZOFRAN) 005-05 Oral, ity of tablet 4 mg 04:00: 03:26 ONCE, 1 [place] 00 :00 dose, On [facility] 05/04/22 at 2300, Routine morpHINE (2 2021-07- No 2mg 2 mg, Slow Univers mg/mL) 05-05 IV Push, ity of injection 2 04:00: 03:26 ONCE, 1 [place] mg 00 :00 dose, On [facility] 05/04/22 at 2300, Routine aspirin 81 2021-0 Yes [id number] 81mg Take 1 U nivers mg chewable 9-28 tablet by ity of tablet 00:00: mouth in [place] 00 the Medical morning. Branch aspirin 81 2021-0 Yes [id number] 81mg Take 1 U nivers mg chewable 9-28 tablet by ity of tablet 00:00: mouth in [place] 00 the Medical morning. Branch aspirin 81 2021-0 Yes [id number] 81mg Take 1 U nivers mg chewable 9-28 tablet by ity of tablet 00:00: mouth in [place] 00 the Medical morning. Branch aspirin 81 Yes [id number] 81mg Take 1 U nivers mg chewable 9-28 tablet by ity of tablet 00:00: mouth in [place] the Medical morning. Branch aspirin 81 0 Yes [id number] 81mg Take 1 U nivers mg chewable 9-28 tablet by ity of tablet 00:00: mouth in [place] the Medical morning. Branch aspirin 81 Yes [id number] 81mg Take 1 U nivers mg chewable 9-28 tablet by ity of tablet 00:00: mouth in [place] 00 the Medical morning. Branch MULTIVITAMI Yes 1{tbl} Take 1 Tab Univers N ORAL 04-15 by mouth ity of 17:39: daily. [place] 14 Medical Branch omega-3 Yes 1g Take 1 g Univer s fatty 04-15 by mouth ity of acids-vitam 17:39: daily. [place] in [place] (FISH 14 Medical OIL) 1,000 Branch mg capsule loratadine Yes Take by Univ ers (CLARITIN 04-15 mouth ity of LIQUI-GEL) 17:39: daily. [place] 10 mg 14 Medical capsule Branch ondansetron Yes 4mg Take 4 mg U nivers (ZOFRAN) 4 04-15 by mouth ity o f mg tablet 17:39: every 8 [place] 14 (eight) Medical hours as Branch needed. pantoprazol Yes 40mg Take 40 mg Univers e 04-15 by mouth ity of (PROTONIX) 17:39: daily. [place] 40 mg EC 14 Medical tablet Branch [...] Thu Branch tablet 04/15/22 at 0039, Until Tu04/15/22 at 0939, Routine, Pain (scale 4-6), Pain [...] (after Medical last Branch modificati on) on [facility] 04/14/22 at 2145, Until Discontinu ed, Routine ketorolac 2021- No 15mg 15 mg, Unive rs (TORADOL) 04-15 Slow IV ity of injection 02:13: 02:22 Push, [place] 15 mg 00 :00 ONCE, 1 Medical dose, On Branch [facility] 04/14/22 at 2115, Routine levETIRAcet Yes [id number] 1000mg Take 1 Univers am 1,000 mg 9-27 tablet by ity of tablet 00:00: mouth in [place] [address] the Medical morning Branch and 1 tablet in the evening. atorvastati Yes [id number] 40mg Take 1 Univers n 40 mg 9-27 tablet by ity of tablet 00:00: mouth at [place] [address] bedtime. Medical Branch atorvastati Yes [id number] 40mg Take 1 Univers n 40 mg 9-27 tablet by ity of tablet 00:00: mouth at [place] [address] bedtime. Medical Branch atorvastati Yes [id number] 40mg Take 1 Univers n 40 mg 9-27 tablet by ity of tablet 00:00: mouth at [place] [address] bedtime. Medical Branch atorvastati Yes [id number] 40mg Take 1 Univers n 40 mg 9-27 tablet by ity of tablet 00:00: mouth at [place] 00 bedtime. Medical Branch atorvastati Yes [id number] 40mg Take 1 Univers n 40 mg 9-27 tablet by ity of tablet 00:00: mouth at [place] 00 bedtime. Medical Branch atorvastati Yes [id number] 40mg Take 1 Univers n 40 mg 9-27 tablet by ity of tablet 00:00: mouth at [place] 00 bedtime. Medical Branch levETIRAcet 2021- No [id number] 1000mg Take 1 Univers am 1,000 mg 9-27 10-20 tablet by it y of tablet 00:00: 00:00 mouth in [place] 00 :00 the Medical morning Branch and 1 tablet in the evening. lidocaine 5 2021- No [id number] 1{patch Apply 1 Univers % (700 04-15 [...] 12 Medical patch 1 Hours, Branch Patch [id number], Starting on Thu04/14/22 at 1645, Until Discontinu ed, Routine, Localized pain aspirin Yes 81mg 81 mg, Univers chewable 04-14 Oral, ity of tablet 81 21:30: DAILY, [place] mg 00 First dose Medical on Thu [place] 04/14/22 at 1630, Until Discontinu ed, Routine acetaminoph Yes 650mg 650 mg, Un lois en 04-14 Oral, ity of (TYLENOL) 21:29: Q6HPRN, [place] tablet 650 25 Starting Medic al mg on Thu [place] 04/14/22 at 1629, Until Discontinu ed, Routine, Pain (scale 1-3), Temp > 38.5 C, Temp > 37.5 C HYDROcodone 2021-0 202- No 1{tbl} 1 tablet, Univers -acetaminop 04-14 Oral, ity of hen (NORCO) 21:29: 05:39 Q6HPRN, [place] 10-325 mg 02 :41 Starting Medica l tablet 1 on [facility] tablet 04/14/22 at 1629, Until Tu04/15/22 at 0039, Routine, Pain (scale 7-10), Pain (scale 4-6) sulfur 0 202- No [id number] 5mL 5 mL, Univ ers hexafluorid 04-14 Intravenou i ty of e microsphr 16:45: 16:45 s, ONCE, 1 [place] (LUMASON) 00 :00 dose, On Medica l injection 5 Thu [place] mL 04/14/22 at 1145, Routine
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 : [employer] clopidogreL Yes 75mg 75 mg, Univ ers (PLAVIX) 75 04-14 Oral, ity of mg tablet 14:00: DAILY, [place] 75 mg 00 First dose Medical on [facility] 04/14/22 at 0900, Until Discontinu ed, Routine pantoprazol Yes 40mg 40 mg, Univ ers e 04-14 Oral, ity of (PROTONIX) 14:00: DAILY, [place] EC tablet 00 First dose Medi kwame 40 mg on [facility] 04/14/22 at 0900, Until Discontinu ed, Routine atorvastati Yes 40mg 40 mg, Univ ers n (LIPITOR) 04-14 Oral, QHS, it y of tablet 40 02:00: First dose [place] mg 00 on [facility] 04/13/22 at Branch 2100, Until Discontinu ed, Routine LORazepam 2021- No 1mg 1 mg, Univer s (ATIVAN) 04-14 Oral, ity of tablet 1 mg 01:30: 01:45 ONCE, 1 [place] 00 :00 dose, On Medical [facility] 04/13/22 at 2030, Routine methocarbam Yes 500mg [...] Q12H, Med ical First dose Branch on [place] 04/13/22 at 2000, Until Discontinu ed, Routine acetaminoph 2021- No 650mg 650 mg, U nivers en 04-14 Oral, ity of (TYLENOL) 00:23: 21:29 Q6HPRN, [place] tablet 650 25 :42 Starting Medic al mg on [facility] 04/13/22 at 1923, Until 04/14/22 at 1629, Routine, Pain (scale 1-3), Pain (scale 4-6), Temp > 38.5 C, Temp > 37.5 C lidocaine 2021- No 1{patch 1 Patch, Univers (LIDODERM) 04-14 } Topical, ity of 5 % (700 00:22: 13:51 Administer [place] mg/patch) 00 :00 over 12 Medical patch 1 Hours, [place] Patch ONCE, 1 dose, On [place] 04/13/22 at 1930, Routine FENTanyl PF 2021- No 50ug 50 mcg, Un lois (SUBLIMAZE 04-13 Slow IV ity o f (PF)) 20:30: 19:22 Push, [place] injection 00 :00 ONCE, 1 Medical 50 mcg dose, On [facility] 04/13/22 at 1530, Routine aspirin 2021- No 650mg 650 mg, Unive rs chewable 04-13 Oral, ity of tablet 650 20:15: 20:15 ONCE, 1 [place] mg 00 :00 dose, On Medical [facility] 04/13/22 at 1515, Routine clopidogreL 2021- No 300mg 300 mg, U nivers (PLAVIX) 04-13 Oral, ity of 300 mg 20:00: 19:15 ONCE, 1 [place] tablet 300 00 :00 dose, On Medic al mg [facility] 04/13/22 at 1500, Routine ondansetron 2021- No 4mg 4 mg, Slow Univers (ZOFRAN 04-13 IV Push, ity of (PF)) 19:30: 19:22 ONCE, 1 [place] injection 4 00 :00 dose, On Medi kwame mg [facility] 04/13/22 at 1430, MICHAEL iopamidol 2021- No [id number] 100mL 100 mL, Univers (ISOVUE 04-13 Intravenou ity o f 370-500 mL) 18:31: 18:32 s, ONCE, 1 [place] injection 00 :00 dose, On Medica l 100 mL [facility] 04/13/22 at 1345, Routine NaCl 0.9% Yes 5mL 5 mL, Slow Un lois (NS) 04-13 IV Push, ity of injection 5 18:14: PRN - SEE [place] mL 11 [facility] Medical NS, Branch Starting on [place] 04/13/22 at 1314, Until Discontinu ed, 10 mL aspirin Yes 324mg 324 mg, Univer s chewable 508 Oral, ity of tablet 324 14:00: DAILY, [place] mg 00 First dose Medical on [facility] 11/24/21 at 0900, Until Discontinu ed, Routine [...] 00 :00 dose, On Medi kwame mg [facility] 11/23/21 Branch at 1645, MICHAEL NaCl 0.9% [...] Administer over 15 Minutes, 100 mL Dose 2021-0 No Unknown 4-08 00:00: 00 Dose 2021-0 No Unknown 4-08 00:00: 00 Prozac 20 2021-0 No 1mg mg capsule 3-21 00:00: 00 Prozac 20 2021-0 No 1mg [...] mg 3-09 tablet 00:00: 00 Prozac 20 2021-0 No 1mg mg capsule 3-09 00:00: 00 [...] 2021-0 No Unknown 3-06 00:00: 00 Dose 2-0 No Unknown 3-06 00:00: 00 Dose 2021-0 No Unknown 3-06 00:00: 00 Wellbutrin 2020-1 No 1mg XL 150 mg 2-30 24 hr 00:00: tablet, 00 extended release Dose 2020-1 No Unknown 2-30 00:00: 00 Wellbutrin 2020-1 No 1mg XL 150 mg 2-30 24 hr 00:00: tablet, 00 extended release Dose 2020-1 No Unknown 2-30 00:00: 00 ibuprofen 2020-1 No 1mg 800 mg 2-02 tablet 00:00: 00 ibuprofen 2020-1 No 1mg 800 mg 2-02 tablet 00:00: 00 levetiracet 2020-1 No 1mg am 500 mg 1-30 tablet 00:00: 00 Dose 2020-1 No Unknown 1-30 00:00: 00 levetiracet 2020-1 No 1mg am 500 mg 1-30 tablet 00:00: 00 Dose 2020-1 No Unknown 1-30 00:00: 00 levoFLOXaci 2020-0 2020- No 500mg 500 mg, U nivers n 8 08- Oral, ity of (LEVAQUIN) 04:00: 04:22 ONCE, [...] Sat Medica l mg(2.5 mg 03/16/21 at [facility])/3 mL 2100, MICHAEL nebulizer solution 3 mL NaCl 0.9% 2020- No 1000mL at 999 Uni vers (NS) IV 8-29 08-29 mL/hr, ity of infusion 01:57: 03:07 Intravenou [place] 1,000 mL 00 :00 s, ONCE, 1 Medic al dose, Sat Branch 03/16/21 at 2100, MICHAEL methylpredn 2020- No 125mg 125 mg, U nivers isolone sod 03-17 Slow IV ity of succ 01:57: 02:11 [place], [place] (SOLU-MEDRO 00 :00 ONCE, 1 Medic [...] 1000mL at 999 Uni vers (NS) IV 03-17- mL/hr, ity of infusion 01:57: 03:07 Intravenou [place] 1,000 mL 00 :00 s, ONCE, 1 Medic al dose, Sat Branch 03/16/21 at 2100, MICHAEL methylpredn 2020- No 125mg 125 mg, U nivers isolone sod 03-17 Slow IV ity of succ 01:57: 02:11 [place], [place] (SOLU-MEDRO 00 :00 ONCE, 1 Medic al L) dose, Sat Branch injection 03/16/21 at 125 mg 2100, STAT ipratropium 2020-0 2020- No 3mL 3 mL, Univ ers -albuteroL 03-17 Inhalation it y of (DUONEB) 01:57: 02:15 , ONCE, 1 [place] 0.5 mg-3 00 :00 dose, Sat Medica l mg(2.5 mg 03/16/21 at [facility])/3 mL 2100, MICHAEL nebulizer solution 3 mL levoFLOXaci No [id number] 500mg Take 1 Univers n 500 mg 03-17 tablet by ity o f tablet 00:00: 04:59 mouth [place] 00 :00 daily for Medical 6 days. Nafisa levoFLOXaci No [id number] 500mg Take 1 Univers n 500 mg 03-17 tablet by ity o f tablet 00:00: 04:59 mouth [place] 00 :00 daily for Medical 6 days. Nafisa levoFLOXaci No [id number] 500mg Take 1 Univers n 500 mg 03-17 tablet by ity o f tablet 00:00: 04:59 mouth [place] 00 :00 daily for Medical 6 days. Nafisa levoFLOXaci No [id number] 500mg Take 1 Univers n 500 mg 03-17 tablet by ity o f tablet 00:00: 04:59 mouth [place] 00 :00 daily for Medical 6 days. Branch predniSONE No [id number] 30mg Take 3 Univers 10 mg 03-17 tablets by ity of tablet 00:00: 04:59 mouth [place] 00 :00 daily for Medical 4 days. Branch predniSONE No [id number] 30mg Take 3 Univers 10 mg 03-17 tablets by ity of tablet 00:00: 04:59 mouth [place] 00 :00 daily for Medical 4 days. Branch predniSONE No [id number] 30mg Take 3 Univers 10 mg 03-17 tablets by ity of tablet 00:00: 04:59 mouth [place] 00 :00 daily for Medical 4 days. Branch predniSONE No [id number] 30mg Take 3 Univers 10 mg 03-17 tablets by ity of tablet 00:00: 04:59 mouth [place] 00 :00 daily for Medical 4 days. Branch albuterol No [id number] 4{puff} 4 Puff, Univers (VENTOLIN) 03-15 Inhalation it y of inhaler 4 01:45: 00:44 , ONCE, 1 [place] Puff 00 :00 dose, [facility] Medical 03/14/21 at Branch 5, Routine dexamethaso 2020- No [id number] 10mg 10 mg, Univers ne 03-15 Intramuscu ity of (DECADRON) 01:45: 00:45 lar, ONCE, [place] injection 00 :00 1 dose, Medical 10 mg [place] 03/14/21 at 2045, Routine albuterol Yes [id number] 2.5mg Inhale 3 Univers 2.5 mg /3 8-27 mL every 4 ity of mL (0.083 00:00: (four) [place] %) 00 hours as Medical nebulizer needed for Bran ch solution Wheezing or Shortness of Breath. albuterol Yes [id number] 2.5mg Inhale 3 Univers 2.5 mg /3 8-27 mL every 4 ity of mL (0.083 00:00: (four) [place] %) 00 hours as Medical nebulizer needed for Bran ch solution Wheezing or Shortness of Breath. albuterol Yes [id number] 2.5mg Inhale 3 Univers 2.5 mg /3 8-27 mL every 4 ity of mL (0.083 00:00: (four) [place] %) 00 hours as Medical nebulizer needed for Bran ch solution Wheezing or Shortness of Breath. albuterol Yes [id number] 2.5mg Inhale 3 Univers 2.5 mg /3 8-27 mL every 4 ity of mL (0.083 00:00: (four) [place] %) 00 hours as Medical nebulizer needed for Bran ch solution Wheezing or Shortness of Breath. albuterol Yes [id number] 2.5mg Inhale 3 Univers 2.5 mg /3 8-27 mL every 4 ity of mL (0.083 00:00: (four) [place] %) 00 hours as Medical nebulizer needed for Bran ch solution Wheezing or Shortness of Breath. albuterol Yes [id number] 2.5mg Inhale 3 Univers 2.5 mg /3 8-27 mL every 4 ity of mL (0.083 00:00: ([facility]) [place] %) 00 hours as Medical nebulizer needed for Bran ch solution Wheezing or Shortness of Breath. albuterol 2020-0 Yes [id number] 2.5mg Inhale 3 Univers 2.5 mg /3 8-27 mL every 4 ity of mL (0.083 00:00: ([facility]) [place] %) 00 hours as Medical nebulizer needed for Bran ch solution Wheezing or Shortness of Breath. albuterol 2020-0 Yes [id number] 2.5mg Inhale 3 Univers 2.5 mg /3 8-27 mL every 4 ity of mL (0.083 00:00: ([facility]) [place] %) 00 hours as Medical nebulizer needed for Bran ch solution Wheezing or Shortness of Breath. albuterol 2020-0 Yes [id number] 2.5mg Inhale 3 Univers 2.5 mg /3 8-27 mL every 4 ity of mL (0.083 00:00: ([facility]) [place] %) 00 hours as Medical nebulizer needed for Bran ch solution Wheezing or Shortness of Breath. albuterol 2020-0 Yes [id number] 2.5mg Inhale 3 Univers 2.5 mg /3 8-27 mL every 4 ity of mL (0.083 00:00: (four) [place] %) 00 hours as Medical nebulizer needed for Bran ch solution Wheezing or Shortness of Breath. albuterol 2020-0 Yes [id number] 2.5mg Inhale 3 Univers 2.5 mg /3 8-27 mL every 4 ity of mL (0.083 00:00: (four) [place] %) 00 hours as Medical nebulizer needed for Bran ch solution Wheezing or Shortness of Breath. albuterol 2020-0 Yes [id number] 2.5mg Inhale 3 Univers 2.5 mg /3 8-27 mL every 4 ity of mL (0.083 00:00: (four) [place] %) 00 hours as Medical nebulizer needed for Bran ch solution Wheezing or Shortness of Breath. albuterol 2020-0 Yes [id number] 2.5mg Inhale 3 Univers 2.5 mg /3 8-27 mL every 4 ity of mL (0.083 00:00: (four) [place] %) 00 hours as Medical nebulizer needed for Bran ch solution Wheezing or Shortness of Breath. albuterol 2020-0 Yes [id number] 2.5mg Inhale 3 Univers 2.5 mg /3 8-27 mL every 4 ity of mL (0.083 00:00: (four) [place] %) 00 hours as Medical nebulizer needed for Bran ch solution Wheezing or Shortness of Breath. albuterol 2020-0 Yes [id number] 2.5mg Inhale 3 Univers 2.5 mg /3 8-27 mL every 4 ity of mL (0.083 00:00: (four) [place] %) 00 hours as Medical nebulizer needed for Bran ch solution Wheezing or Shortness of Breath. albuterol 2020-0 Yes [id number] 2.5mg Inhale 3 Univers 2.5 mg /3 [...] 8-03 mouth. ity of ORAL) 19:45: [address] Branch levetiracet 0 Yes Take by Uni vers am (KEPPRA 8-03 mouth. ity of ORAL) 19:45: [address] Branch levetiracet 2020-0 Yes Take by Uni vers am (KEPPRA 8-03 mouth. ity of ORAL) 19:45: [address] Branch levetiracet 2020-0 Yes Take by Uni vers am (KEPPRA 8-03 mouth. ity of ORAL) 19:45: [address] levetiracet 2020-0 Yes Take by Uni vers am (KEPPRA 02-19 mouth. ity of ORAL) 19:45: [address] levetiracet Yes Take by Uni vers am (KEPPRA 02-19 mouth. ity of ORAL) 19:45: [address] LISINOPRIL- 2020- No Take by Un lois HYDROCHLORO 02-19 mouth. ity o f THIAZIDE 19:41: 00:00 [place] ORAL 15 :00 [facility] Branch dicyclomine 2020- No 20mg [...] NaCl 0.9% 02/19/21 at [facility] h (NS) 50 mL 1415, 50 [...] at Branch 1200, MICHAEL iopamidol 2020- No [id number] 100mL 100 mL, Univers (ISOVUE 8 08-03 Intravenou ity o f 370-500 mL) 16:35: 16:45 s, ONCE, 1 [place] injection 00 :00 dose, Tue Medic al 100 mL 02/19/21 at Branch 1145, Routine levetiracet 0 Yes Take by Uni vers am (KEPPRA 8-03 mouth. ity of ORAL) 14:45: [address] levetiracet 2020-0 Yes Take by Uni vers am (KEPPRA 8-03 mouth. ity of ORAL) 14:45: [address] levetiracet 2020-0 Yes Take by Uni vers am (KEPPRA 8-03 mouth. ity of ORAL) 14:45: [address] levetiracet 2020-0 Yes Take by Uni vers am (KEPPRA 8-03 mouth. ity of ORAL) 14:45: [address] levetiracet 0 Yes Take by Uni vers am (KEPPRA 8-03 mouth. ity of ORAL) 14:45: [address] proMETHazin 2020-0 Yes [id number] 25mg Take 1 Univers e 25 mg 8-03 tablet by ity of tablet 00:00: mouth [place] 00 every 6 Medical (six) Branch hours as needed for Nausea and Vomiting (N/V). dicyclomine 2020-0 Yes [id number] 20mg Take 1 Univers 20 mg 8-03 tablet by ity of tablet 00:00: mouth 00 (four) Medical times Branch daily as needed for Abdominal pain. proMETHazin 2020-0 Yes [id number] 25mg Take 1 Univers e 25 mg 8-03 tablet by ity of tablet 00:00: mouth [place] 00 every 6 Medical (six) Branch hours as needed for Nausea and Vomiting (N/V). dicyclomine 2020-0 Yes [id number] 20mg Take 1 Univers 20 mg 8-03 tablet by ity of tablet 00:00: mouth 4 00 (four) Medical times Branch daily as needed for Abdominal pain. proMETHazin 2020-0 Yes [id number] 25mg Take 1 Univers e 25 mg 8-03 tablet by ity of tablet 00:00: mouth [place] 00 every 6 Medical (six) Branch hours as needed for Nausea and Vomiting (N/V). dicyclomine 1-0 Yes [id number] 20mg Take 1 Univers 20 mg 8-03 tablet by ity of tablet 00:00: mouth 4 (four) Medical times Branch daily as needed for Abdominal pain. proMETHazin 2020-0 Yes [id number] 25mg Take 1 Univers e 25 mg 8-03 tablet by ity of tablet 00:00: mouth [place] 00 every 6 Medical (six) Branch hours as needed for Nausea and Vomiting (N/V). dicyclomine 2020-0 Yes [id number] 20mg Take 1 Univers 20 mg 8-03 tablet by ity of tablet 00:00: mouth (four) Medical times Branch daily as needed for Abdominal pain. proMETHazin 2020-0 Yes [id number] 25mg Take 1 Univers e 25 mg 8-03 tablet by ity of tablet 00:00: mouth 00 every 6 Medical (six) Branch hours as needed for Nausea and Vomiting (N/V). dicyclomine 2020-0 Yes [id number] 20mg Take 1 Univers 20 mg 8-03 tablet by ity of tablet 00:00: mouth (four) Medical times Branch daily as needed for Abdominal pain. proMETHazin 2020-0 Yes [id number] 25mg Take 1 Univers e 25 mg 8-03 tablet by ity of tablet 00:00: mouth [place] 00 every 6 Medical (six) Branch hours as needed for Nausea and Vomiting (N/V). dicyclomine 2020-0 Yes [id number] 20mg Take 1 Univers 20 mg 8-03 tablet by ity of tablet 00:00: mouth (four) Medical times Branch daily as needed for Abdominal pain. proMETHazin 202-0 Yes [id number] 25mg Take 1 Univers e 25 mg 8-03 tablet by ity of tablet 00:00: mouth [place] 00 every 6 Medical (six) Branch hours as needed for Nausea and Vomiting (N/V). dicyclomine 2021-0 Yes [id number] 20mg Take 1 Univers 20 mg 8-03 tablet by ity of tablet 00:00: mouth (four) Medical times Branch daily as needed for Abdominal pain. proMETHazin 2020-0 Yes [id number] 25mg Take 1 Univers e 25 mg 8-03 tablet by ity of tablet 00:00: mouth [place] 00 every 6 Medical (six) Branch hours as needed for Nausea and Vomiting (N/V). dicyclomine 2020-0 Yes [id number] 20mg Take 1 Univers 20 mg 8-03 tablet by ity of tablet 00:00: mouth 4 [place] 00 (four) Medical times Branch daily as needed for Abdominal pain. proMETHazin 2020-0 Yes [id number] 25mg Take 1 Univers e 25 mg 8-03 tablet by ity of tablet 00:00: mouth [place] 00 every 6 Medical (six) Branch hours as needed for Nausea and Vomiting (N/V). dicyclomine 2020-0 Yes [id number] 20mg Take 1 Univers 20 mg 8-03 tablet by ity of tablet 00:00: mouth 4 [place] 00 (four) Medical times Branch daily as needed for Abdominal pain. proMETHazin 2020-0 Yes [id number] 25mg Take 1 Univers e 25 mg 8-03 tablet by ity of tablet 00:00: mouth [place] 00 every 6 Medical (six) Branch hours as needed for Nausea and Vomiting (N/V). dicyclomine 2020-0 Yes [id number] 20mg Take 1 Univers 20 mg 8-03 tablet by ity of tablet 00:00: mouth 4 [place] 00 (four) Medical times Branch daily as needed for Abdominal pain. proMETHazin 2020-0 Yes [id number] 25mg Take 1 Univers e 25 mg 8-03 tablet by ity of tablet 00:00: mouth [place] 00 every 6 Medical (six) Branch hours as needed for Nausea and Vomiting (N/V). dicyclomine 2020-0 Yes [id number] 20mg Take 1 Univers 20 mg 8-03 tablet by ity of tablet 00:00: mouth 4 [place] 00 (four) Medical times Branch daily as needed for Abdominal pain. proMETHazin 2020-0 Yes [id number] 25mg Take 1 Univers e 25 mg 8-03 tablet by ity of tablet 00:00: mouth [place] 00 every 6 Medical (six) Branch hours as needed for Nausea and Vomiting (N/V). dicyclomine 2020-0 Yes [id number] 20mg Take 1 Univers 20 mg 8-03 tablet by ity of tablet 00:00: mouth 4 (four) Medical times Branch daily as needed for Abdominal pain. proMETHazin 2020-0 Yes [id number] 25mg Take 1 Univers e 25 mg 8-03 tablet by ity of tablet 00:00: mouth [place] 00 every 6 Medical (six) Branch hours as needed for Nausea and Vomiting (N/V). dicyclomine 2020-0 Yes [id number] 20mg Take 1 Univers 20 mg 8-03 tablet by ity of tablet 00:00: mouth 00 (four) Medical times Branch daily as needed for Abdominal pain. proMETHazin 2020-0 Yes [id number] 25mg Take 1 Univers e 25 mg 8-03 tablet by ity of tablet 00:00: mouth [place] 00 every 6 Medical (six) Branch hours as needed for Nausea and Vomiting (N/V). dicyclomine 2020-0 Yes [id number] 20mg Take 1 Univers 20 mg 8-03 tablet by ity of tablet 00:00: mouth (four) Medical times Branch daily as needed for Abdominal pain. proMETHazin 2020-0 Yes [id number] 25mg Take 1 Univers e 25 mg 8-03 tablet by ity of tablet 00:00: mouth [place] 00 every 6 Medical (six) Branch hours as needed for Nausea and Vomiting (N/V). dicyclomine 2020-0 Yes [id number] 20mg Take 1 Univers 20 mg 8-03 tablet by ity of tablet 00:00: mouth (four) Medical times Branch daily as needed for Abdominal pain. proMETHazin 2020-0 Yes [id number] 25mg Take 1 Univers e 25 mg 8-03 tablet by ity of tablet 00:00: mouth [place] 00 every 6 Medical (six) Branch hours as needed for Nausea and Vomiting (N/V). dicyclomine 2020-0 Yes [id number] 20mg Take 1 Univers 20 mg 8-03 tablet by ity of tablet 00:00: mouth 4 00 (four) Medical times Branch daily as needed for Abdominal pain. proMETHazin 2020-0 Yes [id number] 25mg Take 1 Univers e 25 mg 8-03 tablet by ity of tablet 00:00: mouth [place] 00 every 6 Medical (six) Branch hours as needed for Nausea and Vomiting (N/V). dicyclomine Yes [id number] 20mg Take 1 Univers 20 mg 8- tablet by ity of tablet 00:00: mouth 4 (four) Medical times Branch daily as needed for Abdominal pain. ZONISAMIDE Yes TAKE 1 Unive rs 100 mg 11-15 CAPSULE BY ity of capsule 00:00: MOUTH 00 TWICE A Medical DAY Branch ZONISAMIDE 2020- No TAKE 1 Univ ers 100 mg -29 - CAPSULE BY ity of capsule 00:00: 00:00 MOUTH [place] 00 :00 TWICE A Medical DAY Branch ondansetron Yes 4mg Take 4 mg U nivers (ZOFRAN) 4 7-24 by mouth ity o f mg tablet 20:05: every 8 (eight) Medical hours as Branch needed. pantoprazol Yes 40mg Take 40 mg Univers e 7-24 by mouth ity of (PROTONIX) 20:05: daily. [place] 40 mg EC Medical tablet Branch ondansetron Yes 4mg Take 4 mg U nivers (ZOFRAN) 4 7-24 by mouth ity o f mg tablet 20:05: every 8 [place] (eight) Medical hours as Branch needed. pantoprazol 0 Yes 40mg Take 40 mg Univers e 7-24 by mouth ity of (PROTONIX) 20:05: daily. [place] 40 mg EC Medical tablet Branch LISINOPRIL- [...] by mouth ity of (PROTONIX) 20:05: daily. [place] 40 mg EC Medical tablet Branch ondansetron [...] lisinopril- 2018-0 Yes 1{tbl} Take 1 Un olis hydrochloro 7-24 tablet by ity of thiazide [...] 7-24 by mouth ity of 19:58: daily. [place] 14 Medical Branch loratadine 0 Yes Take by Univ ers (CLARITIN 7-24 mouth ity of LIQUI-GEL) 19:58: daily. [place] 10 mg 14 Medical capsule Branch MULTIVITAMI Yes 1{tbl} Take 1 Tab Univers N ORAL 7-24 by mouth ity of 19:58: daily. [place] [address] Medical Branch loratadine 0 Yes Take by Univ ers (CLARITIN 7-24 mouth ity of LIQUI-GEL) 19:58: daily. [place] 10 mg 14 Medical capsule Branch MULTIVITAMI Yes 1{tbl} Take 1 Tab Univers N ORAL 7-24 by mouth ity of 19:58: daily. [place] [address] Medical Branch loratadine Yes Take by Univ ers (CLARITIN 7-24 mouth ity of LIQUI-GEL) 19:58: daily. [place] 10 mg 14 Medical capsule Branch MULTIVITAMI Yes 1{tbl} Take 1 Tab Univers N ORAL 7-24 by mouth ity of 19:58: daily. [place] [address] Medical Branch loratadine 0 Yes Take by Univ ers (CLARITIN 7-24 mouth ity of LIQUI-GEL) 19:58: daily. [place] 10 mg 14 Medical capsule Branch MULTIVITAMI Yes 1{tbl} Take 1 Tab Univers N ORAL 7-24 by mouth ity of 19:58: daily. [place] [address] Medical Branch loratadine Yes Take by Univ ers (CLARITIN 7-24 mouth ity of LIQUI-GEL) 19:58: daily. [place] 10 mg 14 Medical capsule Branch MULTIVITAMI Yes 1{tbl} Take 1 Tab Univers N ORAL 7-24 by mouth ity of 19:58: daily. [place] [address] Medical Branch loratadine 0 Yes Take by Univ ers (CLARITIN 7-24 mouth ity of LIQUI-GEL) 19:58: daily. [place] 10 mg 14 Medical capsule Branch MULTIVITAMI Yes 1{tbl} Take 1 Tab Univers N ORAL 7-24 by mouth ity of 19:58: daily. [place] [address] Medical Branch loratadine 0 Yes Take by Univ ers (CLARITIN 7-24 mouth ity of LIQUI-GEL) 19:58: daily. [place] 10 mg 14 Medical capsule Branch ondansetron 2018-0 Yes 4mg Take 4 mg U nivers (ZOFRAN) 4 7-24 by mouth ity o f mg tablet 15:05: every 8 [place] (eight) Medical hours as Branch needed. pantoprazol 2018-0 Yes 40mg Take 40 mg Univers e 7-24 by mouth ity of (PROTONIX) 15:05: daily. [place] 40 mg EC 01 Medical tablet Branch ondansetron 2018-0 Yes 4mg Take 4 mg U nivers (ZOFRAN) 4 7-24 by mouth ity o f mg tablet 15:05: every 8 [place] [address] (eight) Medical hours as Branch needed. pantoprazol 2018-0 Yes 40mg Take 40 mg Univers e 7-24 by mouth ity of (PROTONIX) 15:05: daily. [place] 40 mg EC 01 Medical tablet Branch ondansetron 2018-0 Yes 4mg Take 4 mg U nivers (ZOFRAN) 4 7-24 by mouth ity o f mg tablet 15:05: every 8 [place] [address] (eight) Medical hours as Branch needed. pantoprazol 2018-0 Yes 40mg Take 40 mg Univers e 7-24 by mouth ity of (PROTONIX) 15:05: daily. [place] 40 mg EC 01 Medical tablet Branch ondansetron 2018-0 Yes 4mg Take 4 mg U nivers (ZOFRAN) 4 7-24 by mouth ity o f mg tablet 15:05: every 8 [place] [address] (eight) Medical hours as Branch needed. pantoprazol 2018-0 Yes 40mg Take 40 mg Univers e 7-24 by mouth ity of (PROTONIX) 15:05: daily. [place] 40 mg EC 01 Medical tablet Branch ondansetron 2018-0 Yes 4mg Take 4 mg U nivers (ZOFRAN) 4 7-24 by mouth ity o f mg tablet 15:05: every 8 [place] [address] (eight) Medical hours as Branch needed. pantoprazol 2018-0 Yes 40mg Take 40 mg Univers e 7-24 by mouth ity of (PROTONIX) 15:05: daily. [place] 40 mg EC 01 Medical tablet Branch [...] 7-24 by mouth ity of 14:58: daily. [place] [address] Medical Branch loratadine Yes Take by [facility] ers (CLARITIN 7-24 mouth ity of LIQUI-GEL) 14:58: daily. [place] 10 mg 14 Medical capsule Branch MULTIVITAMI Yes 1{tbl} Take 1 Tab Univers N ORAL 7-24 by mouth ity of 14:58: daily. [place] [address] Medical Branch loratadine Yes Take by [facility] ers (CLARITIN 7-24 mouth ity of LIQUI-GEL) 14:58: daily. [place] 10 mg 14 Medical capsule Branch MULTIVITAMI Yes 1{tbl} Take 1 Tab Univers N ORAL 7-24 by mouth ity of 14:58: daily. [place] [address] Medical Branch loratadine Yes Take by [facility] ers (CLARITIN 7-24 mouth ity of LIQUI-GEL) 14:58: daily. [place] 10 mg 14 Medical capsule Branch MULTIVITAMI Yes 1{tbl} Take 1 Tab Univers N ORAL 7-24 by mouth ity of 14:58: daily. [place] [address] Medical Branch loratadine Yes Take by [facility] ers (CLARITIN 7-24 mouth ity of LIQUI-GEL) 14:58: daily. [place] 10 mg 14 Medical capsule Branch MULTIVITAMI Yes 1{tbl} Take 1 Tab Univers N ORAL 7-24 by mouth ity of 14:58: daily. [place] [address] Medical Branch loratadine Yes Take by [facility] ers (CLARITIN 7-24 mouth ity of [...] Immunization Date Status Comments [facility] e Immunization Name Name SARS-COV-2 COVID-19 2022-02-19 [...] Unive rsity of PFIZER VACCINE 00:00:00 [place] [facility] Branch SARS-COV-2 COVID-19 2021-05-24 Completed Unive rsity of PFIZER VACCINE 00:00:00 [place] [facility] SARS-COV-2 COVID-19 2021-05-24 Completed Unive rsity of PFIZER VACCINE 00:00:00 [place] [facility] SARS-COV-2 COVID-19 2021-05-24 Completed Unive rsity of PFIZER VACCINE 00:00:00 [place] [facility] SARS-COV-2 COVID-19 2021-05-24 Completed Unive rsity of PFIZER VACCINE 00:00:00 [place] [facility] SARS-COV-2 COVID-19 2021-05-24 Completed Unive rsity of PFIZER VACCINE 00:00:00 [place] [facility] SARS-COV-2 COVID-19 2021-05-24 Completed Unive rsity of PFIZER VACCINE 00:00:00 [place] [facility] SARS-COV-2 COVID-19 2021-05-24 Completed Unive rsity of PFIZER VACCINE 00:00:00 [facility] SARS-COV-2 COVID-19 2021-05-24 Completed Unive rsity of PFIZER VACCINE 00:00:00 [facility] SARS-COV-2 COVID-19 2021-05-03 Completed Unive rsity of PFIZER VACCINE 00:00:00 [facility] SARS-COV-2 COVID-19 2021-05-03 Completed Unive rsity of PFIZER VACCINE 00:00:00 [facility] SARS-COV-2 COVID-19 2021-05-03 Completed Unive rsity of PFIZER VACCINE 00:00:00 [facility] SARS-COV-2 COVID-19 2021-05-03 Completed Unive rsity of PFIZER VACCINE 00:00:00 [facility] SARS-COV-2 COVID-19 2021-05-03 Completed Unive rsity of PFIZER VACCINE 00:00:00 [facility] SARS-COV-2 COVID-19 2021-05-03 Completed Unive rsity of PFIZER VACCINE 00:00:00 [facility] SARS-COV-2 COVID-19 2021-05-03 Completed Unive rsity of PFIZER VACCINE 00:00:00 [facility] SARS-COV-2 COVID-19 2021-05-03 Completed Unive rsity of PFIZER VACCINE 00:00:00 [facility] SARS-COV-2 COVID-19 2021-05-03 Completed Unive rsity of PFIZER VACCINE 00:00:00 [facility] SARS-COV-2 COVID-19 2021-05-03 Completed Unive rsity of PFIZER VACCINE 00:00:00 [facility] Vital Signs Vital Name Observation Time Observation Value Comments Source Heart rate 2022-08-02 02:02:00 108 /min [facility] Respiratory rate 2022-08-02 02:02:00 28 /min Univ ersity of [facility] Oxygen saturation in 2022-08-02 02:02:00 97 /min [facility] Arterial blood by [facility] Pulse oximetry [place] Body temperature 2022-08-02 01:00:00 36.44 Radha Univ ersity of [facility] Systolic blood 2022-08-01 23:29:00 145 mm[Hg] Univer sity of pressure [facility] Diastolic blood 2022-08-01 23:29:00 103 mm[Hg] Unive rsity of pressure [facility] Body weight 2022-08-01 09:16:00 97.977 kg [facility] BMI 2022-08-01 09:16:00 38.26 kg/m2 [facility] [place] [facility] Body height 2022-07-31 21:54:00 160 cm [facility] [place] [facility] Systolic blood 2022-05-08 16:40:00 146 mm[Hg] Univer sity of pressure [place] [facility] Diastolic blood 2022-05-08 16:40:00 96 mm[Hg] Unive rsity of pressure [place] [facility] Heart rate 2022-05-08 16:40:00 112 /min [facility] [place] [facility] Body temperature 2022-05-08 16:40:00 36.78 Radha Univ ersity [facility] [place] [facility] Respiratory rate 2022-05-08 16:40:00 18 /min Univ ersity of [place] [facility] Oxygen saturation in 2022-05-08 16:40:00 94 /min University of Arterial blood by [facility] Pulse oximetry Branch Body height 2022-05-05 23:44:00 160 cm [facility] [place] [facility] Body weight 2022-05-05 23:37:00 81.647 kg [facility] [place] [facility] BMI 2022-05-05 23:37:00 31.89 kg/m2 [facility] [place] [facility] Systolic blood 2022-04-15 18:52:00 104 mm[Hg] Univer sity of pressure [place] [facility] Diastolic blood 2022-04-15 18:52:00 82 mm[Hg] Unive rsity of pressure [place] [facility] Heart rate 2022-04-15 18:52:00 114 /min [facility] [place] [facility] Oxygen saturation in 2022-04-15 18:52:00 98 /min University of Arterial blood by [facility] Pulse oximetry Branch Body temperature 2022-04-15 16:14:00 36.28 Radha Univ ersity of [place] [facility] Respiratory rate 2022-04-15 16:14:00 17 /min Univ ersity [facility] [place] [facility] Body height 2022-04-13 21:08:00 160 cm [facility] [place] [facility] Body weight 2022-04-13 21:08:00 91.173 kg [facility] [place] [facility] BMI 2022-04-13 21:08:00 35.61 kg/m2 [facility] [place] [facility] Systolic blood 2021-11-23 21:30:00 132 mm[Hg] Univer sity of pressure [place] [facility] Diastolic blood 2021-11-23 21:30:00 76 mm[Hg] Unive rsity of pressure [place] [facility] Heart rate 2021-11-23 21:30:00 95 /min [facility] [place] [facility] Respiratory rate 2021-11-23 21:30:00 13 /min Univ ersity [facility] [place] [facility] Oxygen saturation in 2021-11-23 21:30:00 97 /min University of Arterial blood by [place] [employer] Pulse oximetry Branch Body temperature 2021-11-23 20:15:00 37.56 Radha Univ ersity [facility] [place] [facility] Systolic blood 2021-03-17 03:00:00 117 mm[Hg] Univer sity of [facility] [place] [facility] Diastolic blood 2021-03-17 03:00:00 76 mm[Hg] Unive rsity of [facility] [place] [facility] Heart rate 2021-03-17 03:00:00 104 /min [facility] [place] [facility] Respiratory rate 2021-03-17 03:00:00 28 /min Univ ersity [facility] [place] [facility] Oxygen saturation in 2021-03-17 03:00:00 96 /min University of Arterial blood by [place] [employer] [facility] Pulse oximetry Branch Body temperature 2021-03-17 00:39:00 37.11 Radha Univ ersity [facility] [place] [facility] Body height 2021-03-17 00:39:00 160 cm [facility] [place] [facility] Body weight 2021-03-17 00:39:00 58.968 kg [facility] [place] [facility] BMI 2021-03-17 00:39:00 23.03 kg/m2 [facility] [place] [facility] Systolic blood 2021-03-15 00:14:00 149 mm[Hg] Univer sity of [facility] [place] [facility] Diastolic blood 2021-03-15 00:14:00 78 mm[Hg] Unive rsity of [facility] [place] [facility] Heart rate 2021-03-15 00:14:00 100 /min [facility] [place] [facility] Body temperature 2021-03-15 00:14:00 37.33 Radha Univ ersity [facility] [place] [facility] Respiratory rate 2021-03-15 00:14:00 24 /min Univ ersity [facility] [place] [facility] Body height 2021-03-15 00:14:00 160 cm [facility] [place] [facility] Body weight 2021-03-15 00:14:00 58.968 kg [facility] [place] [facility] BMI 2021-03-15 00:14:00 23.03 kg/m2 [facility] [place] [facility] Oxygen saturation in 2021-03-15 00:14:00 98 /min University of Arterial blood by [facility] Pulse oximetry Branch Systolic blood 2021-02-19 18:00:00 131 mm[Hg] Univer sity of pressure [place] [facility] [place] Diastolic blood 2021-02-19 18:00:00 80 mm[Hg] Unive rsity of [facility] Heart rate 2021-02-19 18:00:00 83 /min Universi ty of [facility] Respiratory rate 2021-02-19 18:00:00 18 /min [facility] in 2021-02-19 18:00:00 100 /min University of Arterial blood by [facility] Pulse oximetry Branch Body temperature 2021-02-19 15:47:00 37 Radha [facility] Body height 2021-02-19 15:47:00 160 cm Universi ty of [place] [facility] [place] Body weight 2021-02-19 15:47:00 58.968 kg Universi ty [facility] [place] [facility] [place] BMI 2021-02-19 15:47:00 23.03 kg/m2 Universi ty of [facility] Respiratory rate 2022-08-03 14:40:00 18 /min [facility] Systolic blood 2022-08-03 12:13:00 112 mm[Hg] [facility] Diastolic blood 2022-08-03 12:13:00 77 mm[Hg] [facility] S [facility] Heart rate 2022-08-03 12:13:00 115 /min [facility] Oxygen saturation in 2022-08-03 12:13:00 93 /min [facility] Arterial blood by Medical nter Pulse oximetry Body temperature 2022-08-03 12:00:00 36.83 Radha [facility] Body height 2022-08-02 21:52:00 160.2 cm [facility] Body weight 2022-08-02 21:52:00 95 kg [facility] BMI 2022-08-02 21:52:00 37.02 kg/m2 [facility] BP Systolic 2022-07-24 13:31:00 136 mm[Hg] BP [...] Performed ECG 12-LEAD 2022-08-03 Unknown, Hl[facility] 05:03:32 [facility] ECG 12-LEAD 2022-08-03 Unknown, Hl[facility] 05:03:32 [facility] ECG 12-LEAD 2022-08-03 Unknown, Hl7 [facility] 05:03:32 [facility] LIPID PANEL 2022-08-[address] [facility] 21:14:00 [facility] TSH/FREE T4 IF INDICATED 2022-08-02 Donaldo Hightower [facility] 21:14:00 [facility] VITAMIN B12 2022-08-[address] [facility] 21:14:00 [facility] HEMOGLOBIN A1C 2022-08-[address] [facility] [facility] 21:14:00 [facility] COMPREHENSIVE METABOLIC PANEL 2022-08-02 Donaldo Hightower [facility] 21:14:00 [facility] Center CBC W/PLT COUNT & AUTO 2022-08-02 Donaldo Hightower [facility] DIFFERENTIAL 21:14:00 [facility] RPR 2022-08-[address] [facility] 21:14:00 [facility] HC LAB HIV-1 AG W/HIV-1&2 AB 2022-08-02 Donaldo Hightower [facility] 21:14:00 [facility] C-REACTIVE PROTEIN 2022-08-[address] [facility] 21:14:00 [facility] Center CBC W/PLT COUNT & AUTO 2022-08-02 Donaldo Hightower [facility] DIFFERENTIAL 21:14:00 [facility] EKG-SCANNED 2022-08-[address] [facility] 00:00:00 [facility] CT HEAD WO CONTRAST 2022-08-01 Lorenza Her o f 23:52:15 [facility] GALV ONLY - INFLUENZA A B RSV 2022-08-01 LindseyLetitia hudson Un iversity of PCR 18:28:00 [facility] TRANSTHORACIC ECHO (TTE) 2022-08-01 [facility] of COMPLETE W/ CONTRAST 14:42:00 [facility] Branch MAGNESIUM 2022-08-01 Lorenza Her [place] of 10:42:00 [facility] BASIC METABOLIC PANEL (NA, K, 2022-08-01 Lorenza Her Un iversity of CL, CO2, GLUCOSE, BUN, 10:42:00 [facility] ical CREATININE, [place]) Branch CBC WITH DIFF 2022-08-01 Lorenza Her [place] of 10:42:00 [facility] N-TERMINAL PRO-BNP 2022-08-01 Tc [facility] of 10:42:00 [facility] POCT GLUCOSE (AUTOMATED) 2022-08-01 Lorenza Her [facility] [place] ity of 06:56:00 [facility] CRITICAL CARE 2022-07-31 Sav Ronodn [place] of 22:31:36 [facility] URINALYSIS 2022-07-31 Sav Rondon [place] of 20:52:00 [facility] URINE DRUG (IMMUNOASSAY) - 2022-07-31 [facility] COMPREHENSIVE DRUG SCREEN W/O 20:52[place]00 [place] [facility] REFLEX Branch XR CHEST 1 VW 2022-07-31 Sav Rondon of 18:45:17 [facility] LIPASE 2022-07-31 Sav Rondon [place] of 17:58:00 [facility] TROPONIN I 2022-07-31 Sav Rondon [place] of 17:58:00 [facility] COMP. METABOLIC PANEL (48952) 2022-07-31 Sav Rondon iversity of 17:58:00 [facility] CBC WITH DIFF 2022-07-31 Sav Rondon of 17:58:00 [facility] PROTHROMBIN TIME / INR 2022-07-31 Sav Rondonit y of 17:58:00 [facility] ACTIVATED PARTIAL THRMPLAS 2022-07-31 Rondon, Sav Unive rsity of DAVID 17:58:00 [facility] N-TERMINAL PRO-BNP 2022-07-31 Sav Rondon [place] of 17:58:00 [facility] HB ECG ROUTINE & RHYTHM STRIP 2022-07-31 Sav Rondon Un iversity of 17:46:28 [facility] NOTICE OF PRIVACY PRACTICES 2022-07-31 Doctor Unassigned, U niversity of 17:35:38 [place] [facility] CONSENT/REFUSAL FOR DIAGNOSIS 2022-07-31 Doctor Unassigned, University of AND TREATMENT 17:35:13 [place] [facility] PHOSPHORUS 2022-05-08 [facility] of 05:51:00 [facility] MAGNESIUM 2022-05-08 YvesTirado, [facility] of 05:51:00 [facility] BASIC METABOLIC PANEL (NA, K, 2022-05-08 Shefali, [place] U niversity of CL, CO2, GLUCOSE, BUN, 05:51:00 [place] [facility] CREATININE, [place]) Branch CBC WITH DIFF 2022-05-08 She[facility]ali [facility] of 05:51:00 [facility] BASIC METABOLIC PANEL (NA, K, 2022-05-07 [facility] of CL, CO2, GLUCOSE, BUN, 07:09:00 Shailesh [place] [facility] ical CREATININE, [place]) Branch CBC WITH DIFF 2022-05-07 [facility] of 07:09:00 [facility] POCT GLUCOSE (AUTOMATED) 2022-05-07 Brandyn Mcfarlane of 01:16:00 [facility] HB ABO GROUPING 2022-05-06 Sha[facility] of 05:07:00 [facility] BASIC METABOLIC PANEL (NA, K, 2022-05-06 Shefali, Azeem U niversity of CL, CO2, GLUCOSE, BUN, 05:04:00 [place] [facility] [facility] CREATININE, [place]) Branch CBC WITH DIFF 2022-05-06 Shefali [facility] of 05:04:00 [facility] KEPPRA (LEVETIRACETAM) 2022-05-06 [facility] of 05:04:00 [facility] MR LUMBAR SPINE WO CONTRAST 2022-05-06 Ender Monet U niversity of 02:54:37 Suhas [facility] ELECTROENCEPHALOGRAM 2022-05-06 Abdulaziz John Naa ty of 00:00:00 Shailesh [facility] BASIC METABOLIC PANEL (NA, K, 2022-05-05 [facility] of CL, CO2, GLUCOSE, BUN, 07:57:00 [facility] ical CREATININE, CA) Branch CBC WITH DIFF 2022-05-05 [facility] of 07:57:00 [facility] PROTHROMBIN TIME / INR 2022-05-05 [facility] ersity of 07:57:00 [facility] ACTIVATED PARTIAL THRMPLAS 2022-05-05 [facility] of DAVID 07:57:00 [facility] FIBRINOGEN 2022-05-05 [facility] of 07:57:00 [facility] EMERGENCY SERVICES AGREEMENTS 2022-05-04 Doctor Unassigned, University of AND AUTHORIZATIONS 05:01:00 [place] [facility] VITAMIN D, 25-OH 2022-04-15 Sen [place] of 16:53:00 [facility] MR THORACIC SPINE WO CONTRAST 2022-04-15 Soumya Chua Un iversity of 11:56:19 [facility] MR CERVICAL SPINE WO CONTRAST 2022-04-15 Soumya Chua Un iversity of 11:20:00 [facility] BASIC METABOLIC PANEL (NA, K, 2022-04-15 Charmaine Morataya Un iversity of CL, CO2, GLUCOSE, BUN, 10:36:00 [facility] ical CREATININE, [place]) Branch TEST, URINE 2022-04-15 [facility] of 04:39:00 [facility] URINE DRUG (IMMUNOASSAY) - 2022-04-15 [facility] rsity of COMPREHENSIVE DRUG SCREEN 04:39:00 [facility] URINALYSIS 2022-04-15 [facility] of 04:39:00 [facility] TRANSTHORACIC ECHO (TTE) 2022-04-14 [facility] ity of COMPLETE W/ CONTRAST 16:37:03 [facility] KEPPRA (LEVETIRACETAM) 2022-04-14 [facility] y of 15:30:00 [facility] MAGNESIUM 2022-04-14 [facility] of 10:03:00 [facility] BASIC METABOLIC PANEL (NA, K, 2022-04-14 [facility] iversity of CL, CO2, GLUCOSE, BUN, 10:03:00 [place] [facility] [facility] CREATININE, [place]) Branch MR LUMBAR SPINE WO CONTRAST 2022-04-14 [facility] ersity of 02:48:12 [facility] MR STROKE BRAIN WO CONTRAST 2022-04-14 [facility] ersity of 02:29:00 [facility] CT STROKE ANGIOGRAM HEAD 2022-04-13 Sapna Vargas [facility] ersity of 18:40:00 [facility] CT STROKE ANGIOGRAM NECK 2022-04-13 Sapna Vargas [facility] ersity of 18:40:[address] [facility] CT STROKE HEAD WO CONTRAST 2022-04-13 Sapna Vargas iversity of 18:36:00 [facility] TROPONIN I 2022-04-13 Sapna Vargas [place] of 18:17:00 [facility] THYROID STIMULATING HORMONE 2022-04-13 [facility] ersity of 18:17:00 [facility] BASIC METABOLIC PANEL (NA, K, 2022-04-13 Sapna Vargas [place] of CL, CO2, GLUCOSE, BUN, 18:17:00 [place] [facility] CREATININE, [place]) Branch LIPID PANEL ([id number])(TOTAL 2022-04-13 [facility] of CHOLESTEROL, TRIGLYCERIDES, 18:17:00 [facility] HDL) Branch CBC WITHOUT DIFF 2022-04-13 Sapna Vargas [place] f 18:17:00 [facility] GLYCOSYLATED HEMOGLOBIN (A1C) 2022-04-13 Soumya Chua Un iversity of 18:17:00 [facility] PROTHROMBIN TIME / INR 2022-04-13 Sapna Vargas [facility] sity of 18:17:00 [facility] ACTIVATED PARTIAL THRMPLAS 2022-04-13 Sapna Vargas iversity of DAVID 18:17:00 [facility] COVID-19 (ID NOW RAPID 2022-04-13 Sapna Vargas [facility] sity of TESTING) 18:17:00 [facility] LAB ONLY COVID INTERPRETATION 2022-04-13 Sapna Vargas [facility] 18:17:00 [facility] HB ECG ROUTINE & RHYTHM STRIP 2022-04-13 Sapna Vargas [facility] 18:15:49 [facility] CONSENT/REFUSAL FOR DIAGNOSIS 2022-04-13 Doctor Unassigned, [facility] AND TREATMENT 18:05:14 [place] [facility] HOSPITAL ADMISSION 2022-04-13 Doctor Unassigned, [facility] 05:01:00 [place] [facility] SARS-COV-2 COVID-19 VACCINE 2022-02-19 Doctor Unassigned, U niversity of 12 YRS+,0.3ML,IM (PFIZER - 15:21:12 [place] [facility] URINE DRUG (IMMUNOASSAY) - 2021-11-23 Nichelle Allison U niversity of COMPREHENSIVE DRUG SCREEN W/O 21:21[place]00 [place] [facility] HEAD WO CONTRAST 2021-11-23 Nichelle Allison [facility] ty of 20:58:00 [facility] POCT TEST 2021-11-23 [facility] ty of 20:46:00 [facility] URINALYSIS 2021-11-23 [facility] o f 20:43:00 [facility] LIPASE 2021-11-23 [facility] 20:27:00 [facility] TROPONIN I 2021-11-23 [facility] o f 20:27:00 [facility] COMP. METABOLIC PANEL ([id number]) 2021-11-23 [facility] of 20:27:00 [facility] CBC WITH DIFF 2021-11-23 [facility] o f 20:27:00 [facility] POCT GLUCOSE (AUTOMATED) 2021-11-23 Doctor Joe, [facility] ersity of 20:15:00 [place] [facility] SARS-COV-2 COVID-19 2021-05-24 Doctor Unassigned, Universit y of VACCINE,0.3ML,IM (PFIZER) 14:23:12 [place] [facility] SARS-COV-2 COVID-19 2021-05-03 Doctor Unassigned, [facility] VACCINE,0.3ML,IM (PFIZER) 14:59:29 [place] [facility] EMERGENCY SERVICES AGREEMENTS 2021-04-16 Doctor Unassigned, [place] of AND AUTHORIZATIONS 05:01:00 [place] [facility] URINALYSIS 2021-03-17 [facility] of 03:09:00 [facility] XR CHEST 1 VW 2021-03-17 [place] [facility] of 01:45:07 [facility] TROPONIN I 2021-03-17 [place] [facility] of 01:35:00 [facility] COMP. METABOLIC PANEL ([id number]) 2021-03-17 Fabrice Chakraborty Un iversity of 01:35:00 [facility] CBC WITH DIFF 2021-03-17 [place] [facility] of 01:35:00 [facility] N-TERMINAL PRO-BNP 2021-03-17 [place] [facility] of 01:35:00 [facility] COVID-19 (ID NOW RAPID 2021-03-17 [facility] y of TESTING) 00:58:00 [facility] CONSENT/REFUSAL FOR DIAGNOSIS 2021-03-17 Doctor Unassigned, [facility] AND TREATMENT 00:32:59 [place] [facility] COVID-19 (ID NOW RAPID 2021-02-19 Anali Patel [facility] y of TESTING) 17:04:[address] [facility] [address] ABDOMEN PELVIS W CONTRAST 2021-02-19 Anali Patel Uni versity of 16:41:18 [facility] LIPASE 2021-02-19 Anali Patel [place] of 15:58:00 [facility] COMP. METABOLIC PANEL ([id number]) 2021-02-19 Anali Patel Un iversity of 15:58:00 [facility] CBC WITH DIFF 2021-02-19 Anali Patel [place] of 15:58:00 [facility] URINALYSIS 2021-02-19 Anali Patel [place] of 15:58:00 [facility] NOTICE OF PRIVACY PRACTICES 2021-02-19 Doctor Unassjulee, U niversity of 15:30:46 [place] [facility] CONSENT/REFUSAL FOR DIAGNOSIS 2021-02-19 Doctor Unassigned, University of AND TREATMENT 15:30:30 [place] [facility] Plan of Care Planned Activity Planned Date Details Comments Source Future Scheduled 2025-08-02 Lipid panel (procedure) [facility] Test 00:00:00 [code = [id number]] Medical Ce nter Future Scheduled 2025-08-02 Lipid panel (procedure) [facility] Test 00:00:00 [code = [id number]] Medical Ce nter Future Scheduled 2025-08-02 Lipid panel (procedure) [facility] Test 00:00:00 [code = 87900530] Medical Ce nter Future Scheduled 2022-07-20 DEPRESSION [...] [facility] Test 00:00:00 2) [code = SHING[facility] Center VACCINES (1 of 2)] Future Scheduled [...] cervix Medical C enter (procedure) [code = 281163869] Future Scheduled 1993-01-14 Screening for malignant [facility] Test 00:00:00 neoplasm of cervix Medical C enter (procedure) [code = 993750046] Future Scheduled 1993-01-14 Screening for malignant [facility] Test 00:00:00 neoplasm of cervix Medical C enter (procedure) [code = 642253567] Future Scheduled 1991-01-14 DTAP/TDAP/TD VACCINES CH I [...] breast Medical C enter (procedure) [code = 760225110] Future Scheduled 1972 CT Colonography (combo) [facility] Test 00:00:00 [code = CT Colonography [facility] (combo)] Future Scheduled 1972 Screening for malignant [facility] Test 00:00:00 neoplasm of colon Medical Ce nter (procedure) [code = 123859493] Future Scheduled 1972 Screening for malignant [facility] Test 00:00:00 neoplasm of colon Medical Ce nter (procedure) [code = 773169906] Future Scheduled 1972 Screening for malignant [facility] Test 00:00:00 neoplasm of colon Medical Ce nter (procedure) [code = 953505745] Future Scheduled 1972 Screening for malignant [facility] Test 00:00:00 neoplasm of colon Medical Ce nter (procedure) [code = 271575073] Future Scheduled 1972 Sigmoidoscopy [code = [facility]oscopy] Medical Cente r Future Scheduled 1972 Screening for malignant [facility] Test 00:00:00 neoplasm of breast Medical C enter (procedure) [code = 517010584] Future Scheduled 1972 CT Colonography (combo) [facility] Test 00:00:00 [code = CT [facility] (combo)] Future Scheduled 1972 Screening for malignant [facility] Test 00:00:00 neoplasm of colon Medical Ce nter (procedure) [code = 542372693] Future Scheduled 1972 Screening for malignant [facility] Test 00:00:00 neoplasm of colon Medical Ce nter (procedure) [code = 903649028] Future Scheduled 1972 Screening for malignant [facility] Test 00:00:00 neoplasm of colon Medical Ce nter (procedure) [code = 009587096] Future Scheduled 1972 Screening for malignant [facility] Test 00:00:00 neoplasm of colon Medical Ce nter (procedure) [code = 180951546] Future Scheduled 1972 Sigmoidoscopy [code = [facility]oscopy] Medical Cente r Future Scheduled 1972 Screening for malignant [facility] Test 00:00:00 neoplasm of breast Medical C enter (procedure) [code = 926522002] Future Scheduled 1972 CT Colonography (combo) [facility] Test 00:00:00 [code = CT [facility] (combo)] Future Scheduled 1972 Screening for malignant [facility] Test 00:00:00 neoplasm of colon Medical Ce nter (procedure) [code = 449698308] Future Scheduled 1972 Screening for malignant [facility] Test 00:00:00 neoplasm of colon Medical Ce nter (procedure) [code = 029727067] Future Scheduled 1972 Screening for malignant [facility] Test 00:00:00 neoplasm of colon Medical Ce nter (procedure) [code = 996376466] Future Scheduled 1972 Screening for malignant [facility] Test 00:00:00 neoplasm of colon Medical Ce nter (procedure) [code = 626433265] Future Scheduled 1972 Sigmoidoscopy [facility]code = [facility]] Medical Centitz r Goal Plan of Care Note [code = 66774-5] Goal Plan of Care Note [code = 82943-6] Goal Plan of Care Note [code = 87733-3] Goal Plan of Care Note [code = 22306-8] Goal Plan of Care Note [code = 97930-4] Goal Plan of Care Note [code = 68415-6] Goal Plan of Care Note [code = 06819-3] Goal Plan of Care Note [code = 50203-3] Goal Plan of Care Note [code = 28703-5] Goal Plan of Care Note [code = 71300-0] Goal Plan of Care Note [code = 08854-8] Goal Plan of Care Note [code = 66849-8] Goal Plan of Care Note [code = 75946-3] Goal Plan of Care Note [code = 80251-9] Goal Plan of Care Note [code = 50566-1] Goal Plan of Care Note [code = 64398-3] Goal Plan of Care Note [code = 21044-3] Goal Plan of Care Note [code = 26129-3] Goal Plan of Care Note [code = 11781-2] Goal Plan of Care Note [code = 49648-4] Goal Plan of Care Note [code = 67109-4] Goal Plan of Care Note [code = 32844-5] Goal Plan of Care Note [code = 07637-9] Goal Plan of Care Note [code = 08471-0] Goal Plan of Care Note [code = 92409-2] Goal Plan of Care Note [code = 77338-2] Goal Plan of Care Note [code = 75745-6] Goal Plan of Care Note [code = 26062-8] Goal Plan of Care Note [code = 81998-8] Goal Plan of Care Note [code = 69798-8] Goal Plan of Care Note [code = 56263-7] Goal Plan of Care Note [code = 19313-8] Goal Plan of Care Note [code = 82096-9] Goal Plan of Care Note [code = 60273-7] Goal Plan of Care Note [code = 42784-2] Encounters Start End Encounter Admission Attending Care Care Encounter Source Date/Time Date/Time Type Type Clinicians Facility Department ID 2021-05-20 Emergency [facility] [id number] Univers 18:48:04 ity [facility] 2021-05-20 Emergency [facility] [id number] Univers 12:43:40 ity [facility] 2022-08-28 2022-08-28 Patient Shy Beckman 1.2.840.114 10 [id number] Univers 00:00:00 00:00:00 Outreach E W[place] 350.1.13.10 [place] [id number] [facility] [address] 2022-08-20 2022-08-20 Patient Shy Beckman 1.2.840.114 10 [id number] Univers 00:00:00 00:00:00 Outreach E [place] 350.1.13.10 [id number] [address] 2022-08-02 2022-08-03 [facility] [id number] 17:30:00 14:29:00 Encounter Jen Yepez, [facility] 2022-08-02 2022-08-03 Outpatient ER [facility] Neurology [id number] [facility] 17:30:00 14:29:00 [facility] 2022-08-02 2022-08-03 [facility] [id number] 17:30:00 14:29:00 Encounter Jen Yepez, [facility] 2022-08-03 2022-08-03 Orders [facility] [id number] 00:00:00 00:00:00 [facility] 2022-08-03 2022-08-03 Orders [facility] [id number] 00:00:00 00:00:00 [facility] 2022-08-02 2022-08-02 Travel [facility] [id number] [facility] 00:[facility]00 00:[facility]:00 [facility] 2022-08-02 2022-08-02 Travel [facility] [id number] [facility] 00:[facility]00 00:00:00 [facility] 2022-07-31 2022-08-01 Inpatient X ARDEN [facility] [id number] Univers 11:42:00 21:48:00 LORENZA ity [facility] 2022-07-31 2022-08-01 [facility] Sav Rondon [facility] 1.2.840.1 14 [id number] Univers 11:42:00 21:48:00 Encounter Lorenza Her 350.1.13.10 [facility] [place] [id number] [facility] [address] 2022-08-01 2022-08-01 Transition BLAYNE Nicole 1.2.840.114 [id number] Univers 00:00:00 00:00:00 of Care Maria Teresa [place] 350.1.13.10 [place] [id number] [facility] [address] 2022-07-28 2022-07-28 Outpatient SFA SFA [id number] Adria 14:41:38 14:41:38 0109 [place] 2022-07-28 2022-07-28 Outpatient [id number]- [id number] 3d n7ex43-9 00:00:00 00:00:00 Visit [id number] -2ax3-9sx fa1-9db46d [id number] 537df0 2022-07-24 2022-07-24 Outpatient SFA SFA [id number] Adria 13:24:40 13:24:40 0105 F Mauricio 2022-05-23 2022-05-23 Outpatient SFA SFA [id number] 022 Adria 14:51:01 14:51:01 1104 F Mauricio 2022-05-23 2022-05-23 Outpatient q9gxvd14- [id number] f9 gtyb39-w 00:00:00 00:00:00 Visit r78z-5cy2 62f-4bb7-b -c22x-9v0 33a-0e8613 [id number] 7850ee 2022-05-04 2022-05-08 Outpatient X CHANTEL MATTHEWS [facility] S NS [id number] Univers 20:22:00 14:44:00 ISABELL MATTHEWSLO ity [facility] 2022-05-04 2022-05-08 Emergency Brandyn Mcfarlane 1.2.840.1 14 [id number] Univers 20:22:00 14:44:00 Chantel Matthews [place] 350.1.13 .10 ity [facility] 4.2.7.2.686 [facility] [id number] [place] [id number] [place] 2022-04-13 2022-04-15 Inpatient X [facility] BERNARDINO [id number] Univers 13:06:00 15:00:00 [facility] 2022-04-13 2022-04-15 Hospital Sapna Varags 1.2.84 0.114 [id number] Univers 13:06:00 15:00:00 Encounter TyrelArthurBarrigavaldo JC 350. 1.13.10 [facility] 4.2.7.2.686 [place] [id number] [facility] [address] 2022-02-19 2022-02-19 Imm/Inj Vaccine, [facility] [place] 1.2.840.114 [id number] Univers 10:20:00 10:30:00 Visit Jose Frederick 350.1.13.10 [place] [id number] [facility] [address] 2022-02-19 2022-02-19 Outpatient R JOSE FREDERICK [facility] [id number] Univers 10:20:00 10:20:[facility] 2021-11-23 2021-11-23 Emergency X SULLY [facility] ERT [id number] Univers 15:07:00 17:03:00 JORJEUSHO ity [facility] 2021-11-23 2021-11-23 Emergency Sav Rondon [facility] 1.2.840. 114 [id number] Univers 15:07:00 17:03:00 Nichelle Allison 350.1.13. 10 ity of [place] 4.2.7.2.686 [facility] [id number] [facility] [address] 2021-11-21 2021-11-21 Outpatient R [facility] [id number] Univers 09:40:00 09:40:00 ity of [facility] 2021-05-24 2021-05-24 Outpatient R JOSE FREDERICK [facility] [id number] Univers 09:30:00 09:30:00 ity of [facility] 2021-05-24 2021-05-24 Imm/Inj Vaccine, [facility] [place] 1.2.840.114 [id number] Univers 08:47:51 08:57:51 Visit Otoniel Jose ESTEBAN 350.1.13.10 [place] [id number] [facility] [address] 2021-05-03 2021-05-03 Outpatient R JOSE FREDERICK [facility] [id number] Univers 09:40:00 09:59:35 ity of [facility] 2021-05-03 2021-05-03 Imm/Inj Vaccine, [facility] [place] 1.2.840.114 [id number] Univers 09:17:43 09:59:35 Visit Otoniel Jose Esteban 350.1.13.10 [place] [id number] [facility] [address] 2021-04-16 2021-04-16 Orders Doctor EWELINA 1.2.840.114 [id number] Univers 00:00:00 00:00:00 Only Unassigned, [place] 350.1.13.10 ity of [place] [facility] 4.2.7.2.686 [facility] [id number] [facility] [address] 2021-03-17 2021-03-17 Telephone EWELINA Nava 1.2.400.081 [id number] Univers 00:00:00 00:00:00 Miky JC 350.1.13.10 ity of [facility] 4.2.7.2.686 Javier as [id number] [address] 2021-03-16 2021-03-16 Emergency Jose Cmary [facility] 1.2.840.114 [id number] Univers 20:08:00 23:24:00 Fabrice Julio Cesar 350.1.13.10 i ty of [place] 4.2.7.2.686 [facility] [id number] [address] 2021-03-14 2021-03-14 Urgent Lydia Desouza [facility] 1.2.840.114 [id number] Univers 18:59:34 20:19:13 Care Unknown, Attending Health 350.1.13.10 ity [facility] 4.2.7.2.686 Javier as Prem?Blea [id number] [address] Medical Office [facility] 2021-03-14 2021-03-14 Outpatient R UNKNOWN, [facility] [id number] Univers 19:00:00 19:00:00 ATTENDING ity [facility] 2021-02-19 2021-02-19 Emergency [facility] 1.2.793.117 [id number] Univers 10:49:00 14:48:00 Anali Harrell 350.1.13.10 i ty of [place] 4.2.7.2.686 [facility] [id number] [address] 2019-03-09 2019-03-09 Dick [facility] 1.2.840.114 [id number] 00:00:00 00:00:00 Yehuda Harrell 350.1.13.10 [place] 4.2.7.2.686 Professio [id number] [facility] 2019-03-09 2019-03-09 Dick [facility] 1.2.840.114 [id number] Univers 00:00:00 00:00:00 Yehuda Harrell 350.1.13.10 [place] [phone] Me dical nal [address] [facility] Results Test Description Test Time Test Comments Results Result Comments Source RPR 2022-08-05 13:17:22 Test Item Value Reference Range Interpretation Comme nts RPR SCREEN (LATOYA) (test code = 420) Nonreactive Nonreactive HEMOGLOBIN [id number] 10:39:49 Test Item Value Reference Range Interpretation Comments HEMOGLOBIN A1C 5.8 % See_Comment H [Automated m essage] ELECTROPHORESIS (LATOYA) The system which (test code = 3811) generated this result transmitted ref erence range: <=5.6%. The reference range was not used to int erpret this result as normal/abnormal . "The A1c is measured using a [facility]-certified method. HbA1c value equal to or greater than 6.5% as thediagnosis cutoff for diabetes. An HbA1c value of 5.7- 6.4% indicates increased risk for diabetes (prediabetes)."Senior Patrol Agent ID - ADM VITAMIN [id number] 22:48:27 Test Item Value Reference Range Interpretation Comments VITAMIN B12 (LATOYA) (test code = 227 pg/mL 213-816 774) Senior Patrol Agent ID - MARCOTSH/FREE T4 IF [id number] 22:08:28 Test Item Value Reference Range Interpretation Comments THYROID STIMULATING HORMONE 3.309 uIU/mL 0.350-4.940 (LATOYA) (test code = 772) Senior Patrol Agent ID - JSHIV-1 ANTIGEN WITH HIV-1/2 [id number] 22:08:28 Test Item Value Reference Range Interpretation Comments HIV-1 ANTIGEN WITH HIV 1\\T\\2 Nonreactive Nonreactive ANTIBODY (2) (LATOYA) (test code = 2586) Senior Patrol Agent ID - JSC-REACTIVE [id number] 21:49:44 Test Item Value Reference Range Interpretation Comments C-REACTIVE PROTEIN (LATOYA) (test 0.35 mg/dL 0.00-0.50 code = 676) Senior Patrol Agent ID - JSCOMPREHENSIVE METABOLIC [id number] 21:49:43 Test Item Value Reference Range Interpretation Comments TOTAL PROTEIN 7.1 gm/dL 6.0-8.3 (LATOYA) (test code = 770) ALBUMIN (LATOYA) 4.2 g/dL 3.5-5.0 (test code = 1145) [...] not as accur ate as Creatinine Graciela pilar in predicting glom erular filtration rate . Estimated GFR is not appl icable for dialysis patien ts Senior Patrol Agent ID - JSLIPID [id number] 21:49:43 Test Item Value Reference Range Interpretation [...] Borderline 130-159 High 160-189 Very High >=190 Senior Patrol Agent ID - JSCBC W/PLT COUNT & AUTO [id number] 21:34:03 Test Item Value Reference Range Interpretation [...] Interpretation Comments Height (test code = in 4127880500) Weight (test code = lbs 5940273566) Systolic BP (test code = mmHg 0797805512) Diastolic BP (test code mmHg = 3564523822) Heart Rate (test code = bpm 1363034744) BSA (test code = 2.00 m2 3114494416) Ao root diam (test code 3.20 cm = 1259778728) Aortic root (test code = 3.2 cm 8607634501) Ao root annulus (test 3.2 cm code = 3368258907) LVOT diameter (test code 1.99 cm = 2561338030) LVOT area (test code = 3.10 cm2 5372761574) LVIDD (test code = 5.10 cm 4173607715) Left Ventricular End 123.0 mL Diastolic Volume by Teichholz Method (test code = 7188692) IVS (test code = 1.34 cm 7424153489) Interventricular Septum 1.34 cm Diastolic Thickness by 2D (test code = 6207414) LVPWD (test code = 1.34 cm 5983452736) PW (test code = 1.34 cm 0.6-1.0 3528768957) EF(Teich) (test code = 41.80 % 6918957493) LVIDS (test code = 4.00 cm 0186383987) Left Ventricular End 71.5 mL Systolic Volume by Teichholz Method (test code = 6079093) FS (test code = 21 % 4054051515) EF - 2D (test code = 41.80 % 44757165) LA size (test code = 4.6 cm 9309037244) Pulmonic Regurgitant End 119.4 cm/s Max Velocity (test code = 4694781955) LAV(MOD-sp4) (test code 95.00 mL = 9298003512) E wave decelartion time 0.15 s (test code = 0728021801) MV stenosis pressure 1/2 45.6 ms time (test code = 4587446942) MV Peak A Evette (test code 123.8 cm/s = 0556123938) MV Peak E Evette (test code 109.7 cm/s = 5830136750) E/A ratio (test code = ratio 6649178850) MR max PG (test code = 87.20 mm[Hg] 3920453866) MR max evette (test code = 466.90 cm/s 4907007919) Mr max evette (test code = 466.9 m/s 3721283777) MV Prop V (test code = 51.00 cm/s 8295439416) MV E/e' septal (test 8.1 cm/s code = 2773638943) Tapse (test code = 2.21 cm 2443186407) LVOT stroke volume (test 49.80 cm3 code = 3963340754) LVOT peak evette (test code 89.1 cm/s = 3891565293) LVOT mn grad (test code mmHg = 7810431189) AV LVOT peak gradient mmHg (test code = 5944704494) LVOT peak VTI (test code 16.0 cm = 7276036533) LV V1 mean (test code = 64.30 cm/s 7420477411) Aortic valve mean 133.8 cm/s velocity (test code = 1188980880) Ao peak evette (test code = 175.3 cm/s 6264299215) Ao VTI (test code = 32.2 cm 1075772673) AV area by cont VTI 1.6 cm2 (test code = 5092409468) AV area peak evette (test 1.6 cm2 code = 9638740747) Ao max PG (test code = 12.30 mm[Hg] 8867182193) AV peak gradient (test mmHg code = 1505853229) AV valve area (test code 1.55 cm2 = 4956191497) AV mean gradient (test mmHg code = 2451228776) AV regurgitation 358.5 ms pressure 1/2 time (test code = 2683785380) AI dec slope (test code 364.20 cm/s2 = 6648010071) AI max evette (test code = 445.80 cm/s 3410072036) AI max PG (test code = 79.50 mm[Hg] 8295717733) Radiology Study observation (narrative) (test code = 37123-8) LYNDSAY (test code = LYNDSAY) ?Left?Ventricle: Left [...] mL of Lumason ultrasound enhancing agent used. [facility] 10:43:32 Test Item Value Reference Range Interpretation Comments POCT GLU (test code = 0289033405) 148 mg/dL 70-110 H Lab Interpretation (test code = Abnormal 04924-7) [facility] THRMPLAS [id number] 18:39:45 Test Item Value Reference Range Interpretation Comments APTT Patient (test See_Comment [Automat ed code = 3173-2) message] The system which generated this result transmitted reference range : 23 - 38 Seconds . The reference range was not used to interpr et this result as normal/abnormal . LYNDSAY (test code = LYNDSAY) The [facility] patient population mean normal value for aPTT is 30 seconds. Lab Interpretation Normal (test code = 41412-9) [facility]PROT[facility] TIME / [id number] 18:37:42 Test Item Value Reference Range Interpretation [...] tions. Lab Interpretation (test Normal code = 16592-4) [facility] [id number] 18:32:01 Test Item Value Reference Interpretation Comments Range TROPONIN I (test 0.019 ng/mL See_Comment [Automated code = 4071475968) message] The system which generated this result [...] biotin. Lab Interpretation Normal (test code = 13014-4) [facility]AL [id number] 18:29:01 Test Item Value Reference Range Interpretation Comments NT-proBNP (test code 2770 pg/mL See_Comment H [Autom ated = 1802399957) message] The system which generated this result transmitted reference range : <=125. The reference range was not used to interpret this result as normal/abnormal . LYNDSAY (test code = LYNDSAY) Biotin has been reported to cause a negative bias, interpret results relative to patient's use of biotin. Lab Interpretation Abnormal (test code = 25049-7) [facility]COMP. METABOLIC PANEL (82515)2022-07-31 18:21:42 Test Item Value Reference Range Interpretation Comments NA (test code = 136 mmol/L 135-145 4780666624) K (test code = 4.6 mmol/L 3.5-5.0 8768035535) CL (test code = 104 mmol/L 98-108 8507649875) CO2 TOTAL (test code = 26 mmol/L 23-31 1493584168) AGAP (test code = 2-16 6678043929) BUN (test code = 9 mg/dL 7-23 5314042328) GLUCOSE (test code = 97 mg/dL 70-110 7725184275) CREATININE (test code = 0.64 mg/dL 0.50-1.04 3086914877) TOTAL BILI (test code = 0.5 mg/dL 0.1-1.1 7263490836) CALCIUM (test code = 8.2 mg/dL 8.6-10.6 L 4980801551) T PROTEIN (test code = 6.5 g/dL 6.3-8.2 6176730227) ALBUMIN (test code = 3.9 g/dL 3.5-5.0 3261819945) ALK PHOS (test code = 93 U/L 34-122 2300514508) ALTv (test code = 18 U/L 5-35 1742-6) AST(SGOT) (test code = 19 U/L 13-40 7414439077) eGFR (test code = mL/min/1.73m2 0598005010) LYNDSAY (test code = LYNDSAY) Association of [...] tests). Lab Interpretation Abnormal (test code = 15262-6) [facility]2023-[facility] 18:21:01 Test Item Value Reference Range Interpretation Comments LIPASE (test code = 2204278392) 54 U/L 0-220 Lab Interpretation (test code = Normal 16616-0) [facility] HospitalCB WITH [id number] 18:07:00 Test Item Value Reference Range Interpretation Comments WBC (test code = See_Comment [Automated 3252-2) message] The sy stem which generated this result transmitted reference range : 4.30 - 11.10 10*3/?L. The reference range was not used to interpret this result as normal/abnormal . RBC (test code = See_Comment [Automated 363-8) message] The sy stem which generated this [...] (test code = 53.1 fL 39.0-49.9 H 79239-0) RDW-CV (test code = 17.0 % 12.0-15.5 H 788-0) PLT (test code = See_Comment H [Automated 777-3) message] The sy stem which generated this result transmitted reference range : 166 - 358 10*3/ ?L. The reference r zoe was not used to interpret this result as normal/abnormal . MPV (test code = 8.2 fL 9.5-12.9 L 16085-4) NRBC/100 WBC (test See_Comment [Automat ed code = 0436265053) message] The system which generated this result transmitted reference range : 0.0 - 10.0 /100 WBCs. The refer ence range was not u sed to interpret th is result as normal/abnormal . NRBC x10^3 (test code See_Comment [Auto mated = 6337531666) message] The s ystem which generated this result transmitted reference range : 10*3/?L. The reference range was not used to interpret this result as normal/abnormal . GRAN MAT (NEUT) % 64.0 % (test code = 770-8) IMM GRAN % (test code 0.40 % = 2443364177) LYMPH % (test code = 27.3 % 736-9) MONO % (test code = 6.5 % 5905-5) EOS % (test code = 1.1 % 713-8) BASO % (test code = 0.7 % 706-2) GRAN MAT x10^3(ANC) 5.46 10*3/uL 1.88-7.09 (test code = 8751994177) IMM GRAN x10^3 (test 0.03 10*3/uL 0.00-0.06 code = 7002690124) LYMPH x10^3 (test code 2.32 10*3/uL 1.32-3.29 = 731-0) MONO x10^3 (test code 0.55 10*3/uL 0.33-0.92 = 742-7) EOS x10^3 (test code = 0.09 10*3/uL 0.03-0.39 711-2) BASO x10^3 (test code 0.06 10*3/uL 0.01-0.07 = 704-7) Lab Interpretation Abnormal (test code = 81824-4) [facility] METABOLIC PANEL (NA, K, CL, CO2, GLUCOSE, BUN, CREATININE, CA)2022-05-08 06:37:01 Test Item Value Reference Range Interpretation Comments NA (test code = 137 mmol/L 135-145 9752989018) K (test code = 3.8 mmol/L 3.5-5 3936733012) CL (test code = 103 mmol/L 98-108 8239264989) CO2 TOTAL (test code = 24 mmol/L 23-31 5368875984) AGAP (test code = 2-16 9543125164) BUN (test code = 13 mg/dL 7-23 5884362883) GLUCOSE (test code = 90 mg/dL 70-110 6408810197) CREATININE (test code = 0.69 mg/dL 0.5-1.04 3058844303) CALCIUM (test code = 8.5 mg/dL 8.6-10.6 L 7570922191) eGFR (test code = mL/min/1.73m2 6625264073) LYNDSAY (test code = LYNDSAY) Association of [...] tests). Lab Interpretation Abnormal (test code = 39380-7) [facility] Test Item Value Reference Range Interpretation Comments MAGNESIUM (test code = 0320478592) 2.1 mg/dL 1.7-2.4 Lab Interpretation (test code = Normal 23800-2) [facility] 06:37:01 Test Item Value Reference Range Interpretation Comments PHOSPHORUS (test code = 4393096469) 4.7 mg/dL 2.5-5 Lab Interpretation (test code = Normal 94178-7) [facility] [id number] 06:11:54 Test Item Value Reference Range Interpretation Comments WBC (test code = See_Comment [Automated 6823-2) message] The sy stem which generated this result transmitted reference range : 4.30 - 11.10 10*3/?L. The reference range was not used to interpret this result as normal/abnormal . RBC (test code = See_Comment [Automated 033-0) message] The sy stem which generated this [...] (test code = 51.0 fL 39-49.9 H 98209-9) RDW-CV (test code = 16.5 % 12-15.5 H 788-0) PLT (test code = See_Comment H [Automated 777-3) message] The sy stem which generated this result transmitted reference range : 166 - 358 10*3/ ?L. The reference r zoe was not used to interpret this result as normal/abnormal . MPV (test code = 8.3 fL 9.5-12.9 L 32662-7) NRBC/100 WBC (test See_Comment [Automat ed code = 4722635578) message] The system which generated this result transmitted reference range : 0.0 - 10.0 /100 WBCs. The refer ence range was not u sed to interpret th is result as normal/abnormal . NRBC x10^3 (test code See_Comment [Auto mated = 6737212833) message] The s ystem which generated this result transmitted reference range : 10*3/?L. The reference range was not used to interpret this result as normal/abnormal . GRAN MAT (NEUT) % 64.5 % (test code = 770-8) IMM GRAN % (test code 0.50 % = 8189701980) LYMPH % (test code = 27.1 % 736-9) MONO % (test code = 6.6 % 5905-5) EOS % (test code = 0.6 % 713-8) BASO % (test code = 0.7 % 706-2) GRAN MAT x10^3(ANC) 5.28 10*3/uL 1.88-7.09 (test code = 8210937777) IMM GRAN x10^3 (test 0.04 10*3/uL 0-0.06 code = 7779534335) LYMPH x10^3 (test code 2.22 10*3/uL 1.32-3.29 = 731-0) MONO x10^3 (test code 0.54 10*3/uL 0.33-0.92 = 742-7) EOS x10^3 (test code = 0.05 10*3/uL 0.03-0.39 711-2) BASO x10^3 (test code 0.06 10*3/uL 0.01-0.07 = 704-7) Lab Interpretation Abnormal (test code = 18435-6) [facility] 01:18:10 Test Item Value Reference Range Interpretation Comments POCT GLU (test code = 4355435264) 120 mg/dL 70-110 H Lab Interpretation (test code = Abnormal 14148-9) [facility] HospitalType and Screen - ONCE [id number] 05:46:35 Test Item Value Reference Range Interpretation Comments ABO & RH (test code O POSITIVE Performe d at [facility] = 20) Laboratory Serv [facility] Blood [facility]3 [facility] s [address]Xhtp Free: [phone] A No. [id number] IAT (test code = Negative Performed a t [facility] 1185) Laboratory Serv [facility]3 [facility] s [address]Jupc Free: [phone] A No. [id number] [facility]OLIC PANEL (NA, K, CL, CO2, GLUCOSE, BUN, CREATININE, CA)2022-05-05 08:22:57 Test Item Value Reference Range Interpretation Comments NA (test code = 136 mmol/L 135-145 2909736960) K (test code = 4.9 mmol/L 3.5-5 3095796693) CL (test code = 108 mmol/L 98-108 1705023411) CO2 TOTAL (test code = 22 mmol/L 23-31 L 4823832246) AGAP (test code = 2-16 2420133455) BUN (test code = 12 mg/dL 7-23 0879052562) GLUCOSE (test code = 155 mg/dL 70-110 H 4685672017) CREATININE (test code = 0.63 mg/dL 0.5-1.04 3955559573) CALCIUM (test code = 8.4 mg/dL 8.6-10.6 L 3417989513) eGFR (test code = mL/min/1.73m2 2225925417) LYNDSAY (test code = LYNDSAY) Association of [...] tests). Lab Interpretation Abnormal (test code = 98236-4) [facility] HospitalPROTHROMBIN TIME / [id number] 08:22:37 Test Item Value Reference Range Interpretation Comments PROTIME PATIENT (test See_Comment [Auto mated message] code = 5964-2) The system [employer] generated this result transmitted ref erence range: 10.1 - 1 2.6 Seconds. The re ference range was not u sed to interpret this result as normal/abnor mal. INR (test code = 6301-6) Nor mal INR <1.1; Warfarin Therap eutic range 2.0 to 3. 0 or 2.5 to 3.5, dep ending upon the indica tions. Lab Interpretation (test Normal code = 29699-0) [facility] HospitalaPTT2022-[facility]-17 08:22:37 Test Item Value Reference Range Interpretation Comments APTT Patient (test code = See_Comment [ Automated message] 3173-2) The system [employer] h generated this result transmitted ref erence range: 26 - 36 Seconds. The re ference range was not u sed to interpret this result as normal/abnor mal. Lab Interpretation (test Normal code = 99843-6) [facility] HospitalFIBRINOGEN2022-10-17 08:22:37 Test Item Value Reference Range Interpretation Comments Fibrinogen (test code = 4602592160) 294 mg/dL 167-453 Lab Interpretation (test code = Normal 53780-4) [facility] HospitalCB WITH [id number] 08:15:01 Test Item Value Reference Range Interpretation Comments WBC (test code = See_Comment [Automated 5390-2) message] The sy stem which generated this result transmitted reference range : 4.30 - 11.10 10*3/?L. The reference range was not used to interpret this result as normal/abnormal . RBC (test code = See_Comment [Automated 329-8) message] The sy stem which generated this [...] (test code = 52.9 fL 39-49.9 H 87057-4) RDW-CV (test code = 16.8 % 12-15.5 H 788-0) PLT (test code = See_Comment H [Automated 127-3) message] The sy stem which generated this result transmitted reference range : 166 - 358 10*3/ ?L. The reference r zoe was not used to interpret this result as normal/abnormal . MPV (test code = 8.3 fL 9.5-12.9 L 90115-3) NRBC/100 WBC (test See_Comment [Automat ed code = 3009093711) message] The system which generated this result transmitted reference range : 0.0 - 10.0 /100 WBCs. The refer ence range was not u sed to interpret th is result as normal/abnormal . NRBC x10^3 (test code See_Comment [Auto mated = 3753045576) message] The s ystem which generated this result transmitted reference range : 10*3/?L. The reference range was not used to interpret this result as normal/abnormal . GRAN MAT (NEUT) % 86.4 % (test code = 770-8) IMM GRAN % (test code 0.40 % = 1167449881) LYMPH % (test code = 11.7 % 736-9) MONO % (test code = 1.1 % 5905-5) EOS % (test code = 0.0 % 713-8) BASO % (test code = 0.4 % 706-2) GRAN MAT x10^3(ANC) 6.36 10*3/uL 1.88-7.09 (test code = 7371354770) IMM GRAN x10^3 (test 0.03 10*3/uL 0-0.06 code = 3592435394) LYMPH x10^3 (test code 0.86 10*3/uL 1.32-3.29 L = 731-0) MONO x10^3 (test code 0.08 10*3/uL 0.33-0.92 L = 742-7) EOS x10^3 (test code = 0.03-0.39 L 711-2) BASO x10^3 (test code 0.03 10*3/uL 0.01-0.07 = 704-7) Lab Interpretation Abnormal (test code = 43006-3) [facility] HospitalVITAMIN D, [id number] 20:14:03 Test Item Value Reference Range Interpretation Comments VIT D 25OH (test code = 22 ng/mL 25-80 L 89012-0) LYNDSAY (test code = LYNDSAY) Deficiency: <20 ng/mLInsufficiency: 20-24 ng/mLOptimal: 25-80 ng/mL Lab Interpretation (test Abnormal code = 43897-5) [facility] METABOLIC PANEL (NA, K, CL, CO2, GLUCOSE, BUN, CREATININE, CA)2022-04-15 11:27:57 Test Item Value Reference Range Interpretation Comments NA (test code = 138 mmol/L 135-145 0237241480) K (test code = 3.9 mmol/L 3.5-5 6096584736) CL (test code = 106 mmol/L 98-108 0783930736) CO2 TOTAL (test code = 23 mmol/L 23-31 9498507601) AGAP (test code = 2-16 7288741197) BUN (test code = 10 mg/dL 7-23 6999525202) GLUCOSE (test code = 91 mg/dL 70-110 9767151106) CREATININE (test code = 0.65 mg/dL 0.5-1.04 7746135310) CALCIUM (test code = 8.1 mg/dL 8.6-10.6 L 2664023836) eGFR (test code = mL/min/1.73m2 9875271521) LYNDSAY (test code = LYNDSAY) Association of [...] tests). Lab Interpretation Abnormal (test code = 58602-8) [facility] Protocol - Transthoracic echo (TTE) 2022-04-14 22:07:33 Test Item Value Reference Range Interpretation Comments Height (test code = in 4160224374) Weight (test code = lbs 0879227756) Systolic BP (test code = mmHg 8268797367) Diastolic BP (test code mmHg = 8999315356) Heart Rate (test code = bpm 8437149425) BSA (test code = 1.94 m2 2160071414) TASV (test code = 15.5 cm/s 1799710145) LVIDD (test code = 6.00 cm 6972067975) Left Ventricular End 183.0 mL Diastolic Volume by Teichholz Method (test code = 5930425) IVS (test code = 1.09 cm 8349129500) Interventricular Septum 1.09 cm Diastolic Thickness by 2D (test code = 2115993) LVPWD (test code = 0.94 cm 1939816007) PW (test code = 0.94 cm 0.6-1.1 8077042612) EF(Teich) (test code = 40.30 % 4688384351) LVIDS (test code = 4.80 cm 4528218658) Left Ventricular End 109.2 mL Systolic Volume by Teichholz Method (test code = 5871186) FS (test code = 20 % 0945335832) EF - 2D (test code = 40.30 % 24542519) LVOT diameter (test code 2.05 cm = 4558531193) LVOT area (test code = 3.30 cm2 6136049673) Ao root diam (test code 3.10 cm = 6654510622) Aortic root (test code = 3.1 cm 3029547118) Ao root annulus (test 3.1 cm code = 5974877672) LA size (test code = 4.2 cm 9313458192) LAV(MOD-sp4) (test code 64.90 mL = 6978017808) MV Peak A Evette (test code 115.7 cm/s = 9151621982) E wave decelartion time 0.15 s (test code = 5540786956) MV Peak E Evette (test code 106.2 cm/s = 2584944742) E/A ratio (test code = ratio 8224627943) LVOT stroke volume (test 48.30 cm3 code = 4905663568) LVOT peak evette (test code 78.4 cm/s = 2174446744) LVOT mn grad (test code mmHg = 1486479061) AV LVOT peak gradient mmHg (test code = 7462285963) LVOT peak VTI (test code 14.7 cm = 8010862189) LV V1 mean (test code = 51.40 cm/s 6725872870) Ao peak evette (test code = 154.7 cm/s 4651421878) AV area peak evette (test 1.7 cm2 code = 0102348366) Ao max PG (test code = 9.60 mm[Hg] 1823163000) AV peak gradient (test mmHg code = 0467882990) AV regurgitation 257.3 ms pressure 1/2 time (test code = 1857297760) AI dec slope (test code 498.10 cm/s2 = 2436518919) AI max evette (test code = 437.60 cm/s 6169695258) AI max PG (test code = 77.80 mm[Hg] 2243931077) Tapse (test code = 2.19 cm 0910770007) LA Volume Index (BP) 32.0 mL/m2 (test code = 8786084612) LA volume (BP) (test 62.1 mL code = 1364493458) LAV(MOD-sp2) (test code 52.70 mL = 3246998080) A4C EF (test code = 44.80 % 8043556443) EF(sp4-el) (test code = 45.20 % 7952167235) SV(MOD-sp4) (test code = 71.20 mL 8950370497) SV(sp4-el) (test code = 73.90 mL 3788649447) LV Diastolic Volume (BP) 146.3 mL (test code = 1321542994) A2C EF (test code = 52.00 % 0947513325) EF(MOD-bp) (test code = 46.70 % 7677933566) EF(sp2-el) (test code = 52.40 % 7402813056) LV Systolic Volume (BP) 77.9 mL (test code = 4695541770) SV(MOD-bp) (test code = 68.40 mL 6398515647) SV(MOD-sp2) (test code = 69.20 mL 4905193353) EF (test code = 0259359132) Left Ventricular Stroke 68.4 mL Volume by 2-D Biplane-MOD (test code = 3175104) Radiology Study observation (narrative) (test code = 60258-9) LYNDSAY (test code = LYNDSAY) ?Left?Ventricle: Left [...] agent used and saline contrast was performed. [facility]KEPPRA (LEVETIRACETAM)2022-04-14 16:48:36 Test Item Value Reference Range Interpretation Comments KEPPRA (test code = 12-46 L 1668335819) LYNDSAY (test code = LYNDSAY) Therapeutic range: 12-46 ?g/mL ? ?Toxic: Not well established.Test developed and characteristics determined by [facility] Laboratory Services. Lab Interpretation Abnormal (test code = 25659-1) [facility] Metabolic Panel (Na, K, Cl, CO2, Glucose, BUN, Creatinine, Ca)2022-04-14 10:50:11 Test Item Value Reference Range Interpretation Comments NA (test code = 136 mmol/L 135-145 7392497132) K (test code = 3.8 mmol/L 3.5-5 3462369851) CL (test code = 105 mmol/L 98-108 7882435299) CO2 TOTAL (test code = 25 mmol/L 23-31 0113130235) AGAP (test code = 2-16 0637529922) BUN (test code = 9 mg/dL 7-23 9143542937) GLUCOSE (test code = 101 mg/dL 70-110 6282663832) CREATININE (test code = 0.66 mg/dL 0.5-1.04 5963696916) CALCIUM (test code = 8.1 mg/dL 8.6-10.6 L 5049131228) eGFR (test code = mL/min/1.73m2 9236379039) LYNDSAY (test code = LYNDSAY) Association of [...] tests). Lab Interpretation Abnormal (test code = 60194-1) [facility] HospitalMagensium, [id number] 10:50:11 Test Item Value Reference Range Interpretation Comments MAGNESIUM (test code = 4367452887) 1.9 mg/dL 1.7-2.4 Lab Interpretation (test code = Normal 63272-5) [facility] HospitalThyroid Stimulating [id number] 22:21:44 Test Item Value Reference Range Interpretation Comments TSH (test code = See_Comment Biotin has been 9209207792) reported to cau se a negative bias, interpret resul ts relative to autumn garcia's use of biotin. [Automated mess age] The system [employer] generated this result transmitted ref erence range: 0.45 - 4 .70 mIU/L. The refe rence range was not u sed to interpret this result as normal/abnor mal. Lab Interpretation (test Normal code = 38447-8) [facility] HospitalGLYCOSYLATED HEMOGLOBIN (A1C)2022-04-13 21:53:43 Test Item Value Reference Range Interpretation Comments HGB A1C (test code = 5.8 % 4-5.7 H 4548-4) LYNDSAY (test code = LYNDSAY) Reference RangesNormal: <5.7%Prediabetes: 5.7 - 6.4%Diabetes: > 6.5% Lab Interpretation (test Abnormal code = 13792-8) [facility] HospitalFASTNEW [facility] LIPID PANEL (55873)(TOTAL CHOLESTEROL, TRIGLYCERIDES, HDL)2022-04-13 21:34:53 Test Item Value Reference Range Interpretation Comments CHOL (test code = 201 mg/dL 120-200 H 3213778467) HDL (test code = 56 mg/dL See_Comment [Automated message] 0478805321) The system [employer] generated this result transmit sherice reference range : >=50. The refer ence range was not u sed to interpret th is result as normal/abnormal . HDLC RATIO (test code = See_Comment [Au tomated message] 5828267586) The system [employer] generated this result transmit sherice reference range : <=4.5. The refe rence range was not u sed to interpret th is result as normal/abnormal . TRIG (test code = 355 mg/dL 30-170 H 1559293247) LDL CHOL (test code = 74 mg/dL See_Comment [Auto mated message] 06496-0) The system [employer] generated this result transmit sherice reference range : <=160. The refe rence range was not u sed to interpret th is result as normal/abnormal . VLDL (test code = 71 mg/dL 5-60 H 1375835058) Lab Interpretation (test Abnormal code = 57814-6) [facility] HospitalTroponin I - Code [id number] 18:46:27 Test Item Value Reference Interpretation Comments Range TROPONIN I (test 0.013 ng/mL See_Comment [Automated code = 3897519936) message] The system which generated this result [...] biotin. Lab Interpretation Normal (test code = 18025-7) [facility] Metabolic Panel (NA, K, CL, CO2, Glucose, BUN, Creatinine, CA) - Code [id number] 18:35:07 Test Item Value Reference Range Interpretation Comments NA (test code = 136 mmol/L 135-145 9277759578) K (test code = 4.3 mmol/L 3.5-5 3030883194) CL (test code = 105 mmol/L 98-108 0601354677) CO2 TOTAL (test code = 27 mmol/L 23-31 3380993865) AGAP (test code = 2-16 5428981955) BUN (test code = 8 mg/dL 7-23 7006973002) GLUCOSE (test code = 130 mg/dL 70-110 H 6557213495) CREATININE (test code = 0.75 mg/dL 0.5-1.04 6726343997) CALCIUM (test code = 8.5 mg/dL 8.6-10.6 L 9250986434) eGFR (test code = mL/min/1.73m2 9592161056) LYNDSAY (test code = LYNDSAY) Association of [...] tests). Lab Interpretation Abnormal (test code = 69112-2) [facility]aPTT - Code [id number] 18:32:46 Test Item Value Reference Range Interpretation Comments APTT Patient (test See_Comment [Automat ed code = 3173-2) message] The system which generated this result transmitted reference range : 23 - 38 Seconds . The reference range was not used to interpr et this result as normal/abnormal . LYNDSAY (test code = LYNDSAY) The [facility] patient population mean normal value for aPTT is 30 seconds. Lab Interpretation Normal (test code = 92078-5) [facility] HospitalProthrombin Time / INR - Code [id number] 18:30:45 Test Item Value Reference Range Interpretation Comments PROTIME PATIENT (test See_Comment [Auto mated message] code = 5964-2) The system [employer] generated this result transmitted ref erence range: 12.0 - 1 4.7 Seconds. The re ference range was not u sed to interpret this result as normal/abnor mal. INR (test code = 6301-6) Nor mal INR <1.1; Warfarin Therap eutic range 2.0 to 3. 0 or 2.5 to 3.5, dep ending upon the indica tions. Lab Interpretation (test Normal code = 81775-0) [facility] HospitalCBC without Diff - Code [id number] 18:23:07 Test Item Value Reference Range Interpretation Comments WBC (test code = 6690-2) See_Comment [A utomated message] The system [employer] generated this result transmit sherice reference range : 4.30 - 11.10 10*3/?L. The reference range was not used to interpret this result as normal/abnormal . RBC (test code = 789-8) See_Comment [Au tomated message] The system [employer] generated this result transmit sherice reference range [...] See_Comment H [Au tomated message] The system [employer] generated this result transmit sherice reference range : 166 - 358 10*3/?L. The reference range was not used to interpret this result as normal/abnormal . MPV (test code = 8.1 fL 9.5-12.9 L 60187-8) RDW-CV (test code = 16.1 % 12-15.5 H 788-0) RDW-SD (test code = 49.2 fL 39-49.9 16226-9) NRBC x10^3 (test code = See_Comment [Au tomated message] 1995031843) The system [employer] generated this result transmit sherice reference range : 10*3/?L. The reference range was not used to interpret this result as normal/abnormal . NRBC/100 WBC (test code See_Comment [Au tomated message] = 0804644633) The system [facility] generated this result transmit sherice reference range : 0.0 - 10.0 /100 WBC s. The reference r zoe was not used to interpret this result as normal/abnormal . IPF % (test code = 4529270609) Lab Interpretation (test Abnormal code = 04460-3) [facility] HospitalTRPRISMA [facility]ILLE HOSPITALNIN [id number] 21:06:40 Test Item Value Reference Interpretation Comments Range TROPONIN I (test 0.005 ng/mL See_Comment [Automated code = 7531061043) message] The system which generated this result [...] biotin. Lab Interpretation Normal (test code = 22593-7) [facility]. METABOLIC PANEL (26228)2021-11-23 20:55:42 Test Item Value Reference Range Interpretation Comments NA (test code = 137 mmol/L 135-145 6385911015) K (test code = 4.3 mmol/L 3.5-5.0 7456482388) CL (test code = 104 mmol/L 98-108 5137241575) CO2 TOTAL (test code = 22 mmol/L 23-31 L 8440648376) AGAP (test code = 2-16 0596519581) BUN (test code = 15 mg/dL 7-23 6798795242) GLUCOSE (test code = 114 mg/dL 70-110 H 1095338855) CREATININE (test code = 0.68 mg/dL 0.50-1.04 3860577665) TOTAL BILI (test code = 0.5 mg/dL 0.1-1.0 9346388611) CALCIUM (test code = 9.1 mg/dL 8.6-10.6 7239455506) T PROTEIN (test code = 7.3 g/dL 6.3-8.2 5253861954) ALBUMIN (test code = 4.4 g/dL 3.5-5.0 6870683889) ALK PHOS (test code = 243 U/L 34-122 H 1836092832) ALTv (test code = 24 U/L 5-35 1742-6) AST(SGOT) (test code = 30 U/L 13-40 4063218379) eGFR (test code = mL/min/1.73m2 6018992523) LYNDSAY (test code = LYNDSAY) Association of [...] tests). Lab Interpretation Abnormal (test code = 01179-5) [facility] HospitalLIPASE2022-05-07 20:55:22 Test Item Value Reference Range Interpretation Comments LIPASE (test code = 3111656764) 96 U/L 0-220 Lab Interpretation (test code = Normal 65092-2) [facility] HospitalPOCT [id number] 20:46:00 Test Item Value Reference Range Interpretation Comments POCT PREG (test code = 1605) negative On board controls acceptable with present C Line (test code = 3574) POCT PREG LOT # (test code = 3575) [id number] POCT PREG TEST DATE (test 04/18/2023 code = 3576) Lab Interpretation (test code = Normal 04308-0) [facility] HospitalCB WITH [id number] 20:40:38 Test Item Value Reference Range Interpretation [...] (test code = 53.7 fL 39.0-49.9 H 43525-1) RDW-CV (test code = 17.2 % 12.0-15.5 H 788-0) PLT (test code = See_Comment H [Automated 777-3) message] The sy stem which generated this result transmitted reference range : 166 - 358 10*3/ ?L. The reference r zoe was not used to interpret this result as normal/abnormal . MPV (test code = 8.5 fL 9.5-12.9 L 40668-6) NRBC/100 WBC (test See_Comment [Automat ed code = 2921817587) message] The system which generated this result transmitted reference range : 0.0 - 10.0 /100 WBCs. The refer ence range was not u sed to interpret th is result as normal/abnormal . NRBC x10^3 (test code <0.01 See_Comment [Auto mated = 6371027067) message] The s ystem which generated this result transmitted reference range : 10*3/?L. The reference range was not used to interpret this result as normal/abnormal . GRAN MAT (NEUT) % 53.7 % (test code = 770-8) IMM GRAN % (test code 0.90 % = 2389733630) LYMPH % (test code = 32.6 % 736-9) MONO % (test code = 10.1 % 5905-5) EOS % (test code = 1.5 % 713-8) BASO % (test code = 1.2 % 706-2) GRAN MAT x10^3(ANC) 4.98 10*3/uL 1.88-7.09 (test code = 5333585826) IMM GRAN x10^3 (test 0.08 10*3/uL 0.00-0.06 H code = 7816074450) LYMPH x10^3 (test code 3.02 10*3/uL 1.32-3.29 = 731-0) MONO x10^3 (test code 0.94 10*3/uL 0.33-0.92 H = 742-7) EOS x10^3 (test code = 0.14 10*3/uL 0.03-0.39 711-2) BASO x10^3 (test code 0.11 10*3/uL 0.01-0.07 H = 704-7) Lab Interpretation Abnormal (test code = 36117-4) [facility] HospitalPOSD GLUCOSE (AUTOMATED)2021-11-23 20:17:33 Test Item Value Reference Range Interpretation Comments POCT GLU (test code = 111 mg/dL 70-110 H Notifi ed Provider 7586073760) Lab Interpretation (test Abnormal code = 37020-2) [facility] HospitalPA TEST, THINPREP, [id number] 00:00:00 Test Item Value Reference Range Interpretation Comments SOURCE: (test code = Endocervical 8001) SLIDES: (test code = 1 8011) LMP: (test code = 8021) 06/03/2021 SPECIMEN ADEQUACY: (test (NOTE) code = 87893) INTERPRETATION: (test ASCUS/EPITH. code = 34951) ABNORMALITY; SEE BELOW LEAD PROCESS ENGINEER: (test Anusha code = 8101) CHANA Sepulveda(ASCP)[facility] PATHOLOGIST Nahid Russell, INTERPRETATION BY: (test M.D. code = 8122) LOCATION: (test code = (NOTE) 13954) CPT: (test code = 8140) (NOTE) PAP TEST, THINPREP, [id number] 00:00:00 Test Item Value Reference Range Interpretation Comments SOURCE: (test code = Endocervical 8001) SLIDES: (test code = 1 8011) LMP: (test code = 8021) 06/03/2021 SPECIMEN ADEQUACY: (test (NOTE) code = 72478) INTERPRETATION: (test ASCUS/EPITH. code = 68951) ABNORMALITY; SEE BELOW LEAD PROCESS ENGINEER: (test Anusha code = 8101) CHANA Sepulveda(ASCP)[facility] PATHOLOGIST Nahid Russell, INTERPRETATION BY: (test M.D. code = 8122) LOCATION: (test code = (NOTE) 50689) CPT: (test code = 8140) (NOTE) PAP TEST, THINPREP, [id number] 00:00:00 Test Item Value Reference Range Interpretation Comments SOURCE: (test code = Endocervical 8001) SLIDES: (test code = 1 8011) LMP: (test code = 8021) 06/03/2021 SPECIMEN ADEQUACY: (test (NOTE) code = 37878) INTERPRETATION: (test ASCUS/EPITH. code = 87852) ABNORMALITY; SEE BELOW LEAD PROCESS ENGINEER: (test Anusha code = 8101) CHANA Sepulveda(ASCP)[facility] PATHOLOGIST Nahid Russell, INTERPRETATION BY: (test M.D. code = 8122) LOCATION: (test code = (NOTE) 97637) CPT: (test code = 8140) (NOTE) PAP TEST, THINPREP, [id number] 00:00:00 Test Item Value Reference Range Interpretation Comments SOURCE: (test code = Endocervical 8001) SLIDES: (test code = 1 8011) LMP: (test code = 8021) 06/03/2021 SPECIMEN ADEQUACY: (test (NOTE) code = 32763) INTERPRETATION: (test ASCUS/EPITH. code = 56082) ABNORMALITY; SEE BELOW LEAD PROCESS ENGINEER: (test Anusha code = 8101) CHANA Sepulveda(ASCP)[facility] PATHOLOGIST Nahid Russell, INTERPRETATION BY: (test M.D. code = 8122) LOCATION: (test code = (NOTE) 38108) CPT: (test code = 8140) (NOTE) HPV HIGH RISK WITH GENOTYPE, [id number] 00:00:00 Test Item Value Reference Range Interpretation Comments HPV HIGH RISK INTERP (test code = POSITIVE 07786) HPV 16 (test code = 35274) POSITIVE HPV 18 (test code = 16291) NEGATIVE HPV, HR, OTHER GENOTYPES (test code POSITIVE = 18290) HPV HIGH RISK WITH GENOTYPE, [id number] 00:00:00 Test Item Value Reference Range Interpretation Comments HPV HIGH RISK INTERP (test code = POSITIVE 59532) HPV 16 (test code = 21588) POSITIVE HPV 18 (test code = 79829) NEGATIVE HPV, HR, OTHER GENOTYPES (test code POSITIVE = 63003) HPV HIGH RISK WITH GENOTYPE, [id number] 00:00:00 Test Item Value Reference Range Interpretation Comments HPV HIGH RISK INTERP (test code = POSITIVE 13510) HPV 16 (test code = 59220) POSITIVE HPV 18 (test code = 38100) NEGATIVE HPV, HR, OTHER GENOTYPES (test code POSITIVE = 64545) HPV HIGH RISK WITH GENOTYPE, [id number] 00:00:00 Test Item Value Reference Range Interpretation Comments HPV HIGH RISK INTERP (test code = POSITIVE 76854) HPV 16 (test code = 29263) POSITIVE HPV 18 (test code = 81584) NEGATIVE HPV, HR, OTHER GENOTYPES (test code POSITIVE = 02453) [id number] 03:22:48 Test Item Value Reference Range Interpretation Comments APPEARANCE (test code = Hazy Clear A 4070701709) COLOR (test code = Yellow Yellow 3111906213) PH (test code = 4.8-8.0 2869045999) SP GRAVITY (test code = 1.003-1.030 4532728897) GLU U QUAL (test code = Normal Normal 0838684647) BLOOD (test code = Negative Negative Interfere nce from 1838815433) ascorbic acid m ay cause false neg ative results. KETONES (test code = 5 mg/dL Negative A 1246411608) PROTEIN (test code = Negative Negative 2887-8) UROBILIN (test code = 4.0 mg/dL Normal A 4620884528) BILIRUBIN (test code = Negative Negative 5747512008) NITRITE (test code = Negative Negative 4144984912) LEUK GRUPO (test code = Negative Negative 0982968983) RBC/HPF (test code = See_Comment [Autom ated message] 2534811884) The system [employer] generated this result transmitted ref erence range: 0 - 3 HP F. The reference range was not used to int erpret this result as normal/abnormal . WBC/HPF (test code = <1 See_Comment [Autom ated message] 8436408422) The system [employer] generated this result transmitted ref erence range: 0 - 5 HP F. The reference range was not used to int erpret this result as normal/abnormal . BACTERIA (test code = Few Negative A 4124927694) SQ EPITH (test code = HPF 2272457398) Lab Interpretation Abnormal (test code = 93550-3) [facility] Test Item Value Reference Range Interpretation Comments APPEARANCE (test code = Hazy Clear A 3592615798) COLOR (test code = Yellow Yellow 2740803568) PH (test code = 4.8-8.0 1417093752) SP GRAVITY (test code = 1.003-1.030 1155332343) GLU U QUAL (test code = Normal Normal 1160594284) BLOOD (test code = Negative Negative 3907328247) KETONES (test code = 5 mg/dL Negative A 1639044586) PROTEIN (test code = Negative Negative 2887-8) UROBILIN (test code = 4.0 mg/dL Normal A 2782696270) BILIRUBIN (test code = Negative Negative 5063527189) NITRITE (test code = Negative Negative 8304226848) LEUK GRUPO (test code = Negative Negative 6597068692) RBC/HPF (test code = See_Comment [Autom ated message] 4364968862) The system [employer] generated this result transmit sherice reference range : 0 - 3 HPF. The refe rence range was not u sed to interpret th is result as normal/abnormal . WBC/HPF (test code = <1 See_Comment [Autom ated message] 6545904511) The system [employer] generated this result transmit sherice reference range : 0 - 5 HPF. The refe rence range was not u sed to interpret th is result as normal/abnormal . BACTERIA (test code = Few Negative A 2085580681) SQ EPITH (test code = HPF 8796050207) Lab Interpretation (test Abnormal code = 26116-3) [id number] 02:45:00 Test Item Value Reference Interpretation Comments Range TROPONIN I (test 0.002 ng/mL See_Comment [Automated code = 1206516719) message] The system which generated this result [...] biotin. Lab Interpretation Normal (test code = 09247-0) [facility] [id number] 02:45:00 Test Item Value Reference Range Interpretation Comments TROPONIN I (test code = 0.002 ng/mL See_Comment [Au tomated 0979710652) message] The sy stem which generated this result transmitted reference range : <=0.034. The reference range was not used to interpret this result as normal/abnormal . LYNDSAY (test code = LYNDSAY) Lab Interpretation Normal (test code = 33457-5) [facility] [id number] 02:41:57 Test Item Value Reference Range Interpretation Comments NT-proBNP (test code 169 pg/mL See_Comment H [Autom ated = 4828208026) message] The system which generated this result transmitted reference range : <=125. The reference range was not used to interpret this result as normal/abnormal . LYNDSAY (test code = LYNDSAY) Biotin has been reported to cause a negative bias, interpret results relative to patient's use of biotin. Lab Interpretation Abnormal (test code = 94635-0) [facility] [id number] 02:41:57 Test Item Value Reference Range Interpretation Comments NT-proBNP (test code = 169 pg/mL See_Comment H [Aut omated message] 4342340109) The system [employer] generated this result transmit sherice reference range : <=125. The refe rence range was not u sed to interpret th is result as normal/abnormal . LYNDSAY (test code = LYNDSAY) Lab Interpretation (test Abnormal code = 54405-7) [facility]. METABOLIC PANEL (43833)2021-03-17 02:09:13 Test Item Value Reference Range Interpretation Comments NA (test code = 137 mmol/L 135-145 2892278538) K (test code = 4.2 mmol/L 3.5-5.0 2677160839) CL (test code = 102 mmol/L 98-108 5351333333) CO2 TOTAL (test code = 25 mmol/L 23-31 0249310512) AGAP (test code = 2-16 6277431634) BUN (test code = 18 mg/dL 7-23 8219569287) GLUCOSE (test code = 144 mg/dL 70-110 H 3910678677) CREATININE (test code = 0.77 mg/dL 0.50-1.04 1328631694) TOTAL BILI (test code = 0.4 mg/dL 0.1-1.5 2386748384) CALCIUM (test code = 8.9 mg/dL 8.6-10.6 5625189067) T PROTEIN (test code = 6.8 g/dL 6.3-8.2 8193158243) ALBUMIN (test code = 3.9 g/dL 3.5-5.0 4523215006) ALK PHOS (test code = 84 U/L 34-122 0278626794) ALTv (test code = 13 U/L 5-35 1742-6) AST(SGOT) (test code = 17 U/L 13-40 1440393405) eGFR (test code = mL/min/1.73m2 7808410977) LYNDSAY (test code = LYNDSAY) Association of [...] tests). Lab Interpretation Abnormal (test code = 62644-3) [facility]. METABOLIC PANEL (45064)2021-03-17 02:09:13 Test Item Value Reference Range Interpretation Comments NA (test code = 9740358827) 137 mmol/L 135-145 K (test code = 3966657845) 4.2 mmol/L 3.5-5.0 CL (test code = 1966435606) 102 mmol/L 98-108 CO2 TOTAL (test code = 0171971349) 25 mmol/L 23-31 AGAP (test code = 0161283892) 2-16 BUN (test code = 2635312832) 18 mg/dL 7-23 GLUCOSE (test code = 0665357936) 144 mg/dL 70-110 H CREATININE (test code = 0.77 mg/dL 0.50-1.04 7432654906) TOTAL BILI (test code = 0.4 mg/dL 0.1-1.2 1684636217) CALCIUM (test code = 7062328815) 8.9 mg/dL 8.6-10.6 T PROTEIN (test code = 4894389288) 6.8 g/dL 6.3-8.2 ALBUMIN (test code = 3902243377) 3.9 g/dL 3.5-5.0 ALK PHOS (test code = 0554970271) 84 U/L 34-122 ALTv (test code = 1742-6) 13 U/L 5-35 AST(SGOT) (test code = 7230951648) 17 U/L 13-40 eGFR (test code = 8123535577) mL/min/1.73m2 LYNDSAY (test code = LYNDSAY) Lab Interpretation (test code = Abnormal 19865-3) [facility] WITH [id number] 01:56:33 Test Item Value Reference Range Interpretation [...] (test code = 55.5 fL 39.0-49.9 H 61145-9) RDW-CV (test code = 18.9 % 12.0-15.5 H 788-0) PLT (test code = See_Comment H [Automated 777-3) message] The sy stem which generated this result transmitted reference range : 166 - 358 10*3/ ?L. The reference r zoe was not used to interpret this result as normal/abnormal . MPV (test code = 8.2 fL 9.5-12.9 L 32569-8) NRBC/100 WBC (test See_Comment [Automat ed code = 2204298497) message] The system which generated this result transmitted reference range : 0.0 - 10.0 /100 WBCs. The refer ence range was not u sed to interpret th is result as normal/abnormal . NRBC x10^3 (test code <0.01 See_Comment [Auto mated = 8086630232) message] The s ystem which generated this result transmitted reference range : 10*3/?L. The reference range was not used to interpret this result as normal/abnormal . GRAN MAT (NEUT) % 61.7 % (test code = 770-8) IMM GRAN % (test code 0.80 % = 1066080393) LYMPH % (test code = 28.5 % 736-9) MONO % (test code = 6.3 % 5905-5) EOS % (test code = 1.8 % 713-8) BASO % (test code = 0.9 % 706-2) GRAN MAT x10^3(ANC) 7.31 10*3/uL 1.88-7.09 H (test code = 5155716118) IMM GRAN x10^3 (test 0.09 10*3/uL 0.00-0.06 H code = 4451862009) LYMPH x10^3 (test code 3.38 10*3/uL 1.32-3.29 H = 731-0) MONO x10^3 (test code 0.75 10*3/uL 0.33-0.92 = 742-7) EOS x10^3 (test code = 0.21 10*3/uL 0.03-0.39 711-2) BASO x10^3 (test code 0.11 10*3/uL 0.01-0.07 H = 704-7) Lab Interpretation Abnormal (test code = 17595-0) [facility] WITH [id number] 01:56:33 Test Item Value Reference Range Interpretation Comments WBC (test code = See_Comment H [Automated 2490-2) message] The sy stem which generated this [...] (test code = 55.5 fL 39.0-49.9 H 82479-8) RDW-CV (test code = 18.9 % 12.0-15.5 H 788-0) PLT (test code = See_Comment H [Automated 777-3) message] The sy stem which generated this result transmitted reference range : 166 - 358 10*3/ ?L. The reference r zoe was not used to interpret this result as normal/abnormal . MPV (test code = 8.2 fL 9.5-12.9 L 29846-0) NRBC/100 WBC (test See_Comment [Automat ed code = 2222638324) message] The system which generated this result transmitted reference range : 0.0 - 10.0 /100 WBCs. The refer ence range was not u sed to interpret th is result as normal/abnormal . NRBC x10^3 (test code <0.01 See_Comment [Auto mated = 4330985989) message] The s ystem which generated this result transmitted reference range : 10*3/?L. The reference range was not used to interpret this result as normal/abnormal . GRAN MAT (NEUT) % 61.7 % (test code = 770-8) IMM GRAN % (test code 0.80 % = 1484025017) LYMPH % (test code = 28.5 % 736-9) MONO % (test code = 6.3 % 5905-5) EOS % (test code = 1.8 % 713-8) BASO % (test code = 0.9 % 706-2) GRAN MAT x10^3(ANC) 7.31 10*3/uL 1.88-7.09 H (test code = 6002410088) IMM GRAN x10^3 (test 0.09 10*3/uL 0.00-0.06 H code = 4270518886) LYMPH x10^3 (test code 3.38 10*3/uL 1.32-3.29 H = 731-0) MONO x10^3 (test code 0.75 10*3/uL 0.33-0.92 = 742-7) EOS x10^3 (test code = 0.21 10*3/uL 0.03-0.39 711-2) BASO x10^3 (test code 0.11 10*3/uL 0.01-0.07 H = 704-7) Lab Interpretation Abnormal (test code = 94748-5) [facility]-19 (ID NOW RAPID TESTING)2021-03-17 01:38:12 Test Item Value Reference Range Interpretation Comments SARS-CoV-2 Rapid ID NOW Not Detected Not Detected (test code = 78274-0) LYNDSAY (test code = LYNDSAY) ID NOW COVID-19 Assay is an isothermal nucleic acid amplification test intended for the qualitative detection of nucleic acid from SARS-CoV-2 viral RNA in nasopharyngeal ([employer]) specimens. It is used under Emergency Use [...] indicated. Lab Interpretation Normal (test code = 36071-9) [facility]-19 (ID NOW RAPID TESTING)2021-03-17 01:38:12 Test Item Value Reference Range Interpretation Comments SARS-CoV-2 Rapid ID NOW (test Not Detected Not Detected code = 19148-1) LYNDSAY (test code = LYNDSAY) Lab Interpretation (test code = Normal 12326-0) [facility]2021-02-19 17:42:45 Test Item Value Reference Range Interpretation Comments SARS-CoV-2 Rapid ID NOW Not Detected Not Detected (test code = 88185-4) LYNDSAY (test code = LYNDSAY) ID NOW COVID-19 Assay is an isothermal nucleic acid amplification test intended for the qualitative detection of nucleic acid from SARS-CoV-2 viral RNA in nasopharyngeal ([employer]) specimens. It is used under Emergency Use [...] indicated. Lab Interpretation Normal (test code = 36033-4) [facility] PEL[facility] W [id number] 17:24:55Thickening of the gastric antrum and duodenal [...] nodularity of the left adrenal gland.RL: 8722 [facility]inalysis[facility] 17:03:40 Test Item Value Reference Range Interpretation Comments APPEARANCE (test code = Hazy Clear A 6358176039) COLOR (test code = Mabel Yellow A 3445967679) PH (test code = 4.8-8.0 0444721921) SP GRAVITY (test code = 1.003-1.030 H 2546167904) GLU U QUAL (test code = Normal Normal 4764320561) BLOOD (test code = Negative Negative 5813944555) KETONES (test code = 5 mg/dL Negative A 8160896992) PROTEIN (test code = 30 mg/dL Negative A 2887-8) UROBILIN (test code = 4.0 mg/dL Normal A 8126734544) BILIRUBIN (test code = 4 mg/dL Negative A 3956369970) NITRITE (test code = Negative Negative 9225269752) LEUK GRUPO (test code = Negative Negative 7641893892) RBC/HPF (test code = See_Comment H [Autom ated message] 4020662936) The system [employer] generated this result transmit sherice reference range : 0 - 3 HPF. The refe rence range was not u sed to interpret th is result as normal/abnormal . WBC/HPF (test code = See_Comment H [Autom ated message] 4822160562) The system [employer] generated this result transmit sherice reference range : 0 - 5 HPF. The refe rence range was not u sed to interpret th is result as normal/abnormal . BACTERIA (test code = Few Negative A 5402942845) MUCOUS (test code = Moderate Negative LPF A 2447426514) SQ EPITH (test code = HPF 3731879076) CA OXALATE (test code = See_Comment H [Au tomated message] 4921755008) The system [employer] generated this result transmit sherice reference range : <=1 HPF. The refere nce range was not u sed to interpret th is result as normal/abnormal . Ictotest (test code = Negative 5197139376) Lab Interpretation (test Abnormal code = 61379-4) [facility] Met[facility] [id number] 16:34:55 Test Item Value Reference Range Interpretation Comments NA (test code = 139 mmol/L 135-145 7824549051) K (test code = 4.3 mmol/L 3.5-5.0 4991619476) CL (test code = 105 mmol/L 98-108 1533900081) CO2 TOTAL (test code 26 mmol/L 23-31 = 1867638896) AGAP (test code = 2-16 3662897821) BUN (test code = 11 mg/dL 7-23 4951515002) GLUCOSE (test code = 95 mg/dL 70-110 9513364042) CREATININE (test code 0.70 mg/dL 0.50-1.04 = 0320645067) TOTAL BILI (test code 0.6 mg/dL 0.1-1.1 = 5061759706) CALCIUM (test code = 8.9 mg/dL 8.6-10.6 1306147250) T PROTEIN (test code 7.7 g/dL 6.3-8.2 = 7653780983) ALBUMIN (test code = 4.1 g/dL 3.5-5.0 7620393327) ALK PHOS (test code = 79 U/L 34-122 8280196646) ALTv (test code = 10 U/L 5-35 1742-6) AST(SGOT) (test code 22 U/L 13-40 = 6413120528) eGFR (test code = mL/min/1.73m2 8554579924) LYNDSAY (test code = LYNDSAY) Association of [...] or urine or abnormalities in imaging tests). [facility], [id number] 16:34:14 Test Item Value Reference Range Interpretation Comments LIPASE (test code = 8852824820) 45 U/L 0-220 Lab Interpretation (test code = Normal 50258-9) [facility] with [id number] 16:21:12 Test Item Value Reference Range Interpretation Comments WBC (test code = See_Comment [Automated 5696-2) message] The sy stem which generated this result transmitted reference range : 4.30 - 11.10 10*3/?L. The reference range was not used to interpret this result as normal/abnormal . RBC (test code = See_Comment [Automated 494-7) message] The sy stem which generated this [...] (test code = 54.4 fL 39.0-49.9 H 52212-3) RDW-CV (test code = 18.3 % 12.0-15.5 H 788-0) PLT (test code = See_Comment H [Automated 777-3) message] The sy stem which generated this result transmitted reference range : 166 - 358 10*3/ ?L. The reference r zoe was not used to interpret this result as normal/abnormal . MPV (test code = 8.5 fL 9.5-12.9 L 25153-5) NRBC/100 WBC (test See_Comment [Automat ed code = 1914716049) message] The system which generated this result transmitted reference range : 0.0 - 10.0 /100 WBCs. The refer ence range was not u sed to interpret th is result as normal/abnormal . NRBC x10^3 (test code <0.01 See_Comment [Auto mated = 9073674651) message] The s ystem which generated this result transmitted reference range : 10*3/?L. The reference range was not used to interpret this result as normal/abnormal . GRAN MAT (NEUT) % 78.3 % (test code = 770-8) IMM GRAN % (test code 0.40 % = 4950503496) LYMPH % (test code = 15.4 % 736-9) MONO % (test code = 4.8 % 5905-5) EOS % (test code = 0.1 % 713-8) BASO % (test code = 1.0 % 706-2) GRAN MAT x10^3(ANC) 7.15 10*3/uL 1.88-7.09 H (test code = 0452542468) IMM GRAN x10^3 (test 0.04 10*3/uL 0.00-0.06 code = 8811495068) LYMPH x10^3 (test code 1.41 10*3/uL 1.32-3.29 = 731-0) MONO x10^3 (test code 0.44 10*3/uL 0.33-0.92 = 742-7) EOS x10^3 (test code = <0.03 0.03-0.39 L 711-2) BASO x10^3 (test code 0.09 10*3/uL 0.01-0.07 H = 704-7) Lab Interpretation Abnormal (test code = 39114-7) [facility]
[2022-08-29 16:48] LABS: Absolute Lymphocytes (CBC) 1.8 K/uL (0.7-4.9); Hematocrit 37.8 % (36.0-45.0); Lymphocytes % 23.1 % (15.3-44.8); MCV 80.9 fL (80-100); MPV 6.2 fL (7.6-11.3); RBC Red Blood Cell Count 4.67 M/uL (3.86-4.86)
[2022-08-29] MEDS ORDERED: ONDANSETRON 4 MG/2 ML VIAL ONE (16:51)
[2022-08-29] MEDS ORDERED: MORPHINE 4 MG/ML SYR ONE (16:51)
[2022-08-29 16:54] LABS: Protime INR 1.01
[2022-08-29 17:13] LABS: Albumin 3.7 g/dL (3.4-5.0); Bilirubin Direct 0.1 mg/dL (0-0.2); Bilirubin Total 0.3 mg/dL (0.2-1.0); Magnesium 2.3 mg/dL (1.6-2.4); Potassium 3.7 mmol/L (3.5-5.1); Protein, Total 7.2 g/dL (6.4-8.2); Troponin High Sensitivity 15.7 pg/mL (<58.9)
--- NOTE | 2022-08-29 17:28 | RAD REPORT ---
EXAM DESCRIPTION: RAD - Chest Single View - 08/29/2022 5:19 pm CLINICAL HISTORY: chest pain, sob COMPARISON: Chest Single View dated 08/08/2022; Chest Single View dated 06/13/2022; Chest Single View dated 05/04/2022; Chest Single View dated 03/09/2022 FINDINGS: Lines: None. Lungs: No evidence of edema or pneumonia. Pleural: No significant pleural effusions or pneumothorax. Cardiac: The heart size is within normal limits. Mediastinum: Within normal limits. Bones: No acute fractures. ACDF in the cervical spine. Other: None IMPRESSION: No acute cardiopulmonary disease.
[2022-08-29 17:29] LABS: SARS-COV-2 RT PCR NEGATIVE (NEGATIVE)
[2022-08-29] MEDS ORDERED: LEVALBUTEROL 1.25 MG/3 ML NEB ONE (17:33)
[2022-08-29] MEDS ORDERED: FENTANYL CITR 100 MCG/2 ML ONE (19:11)
[2022-08-29 20:23] LABS: Urine Blood 1+ (Negative); Urine Glucose Negative (Negative); Urine Protein Trace (Negative); Urine Specific Gravity 1.025 (1.005-1.030); Urine pH 6.5 (5.0-7.0)
--- NOTE | 2022-08-29 20:38 | RAD REPORT ---
EXAM DESCRIPTION: CT - Chest For Pe Angio - 08/29/2022 8:26 pm CLINICAL HISTORY: chest pain, sob COMPARISON: Chest For Pe Angio dated 09/10/2021; Chest For Pe Angio dated 07/08/2017; THORAX WO CONTR AST dated 07/10/2014; CTANGIO CHEST FOR PE dated 10/03/2012; Chest Single View dated 08/29/2022 TECHNIQUE: Dynamically enhanced axial 3 mm thick images of the chest were obtained during administra tion of <100> mL Isovue 370 IV contrast. Coronal and oblique reconstruction images were generated and reviewed. Exam utilizes a protocol for optimal evaluation of pulmonary arterial tree. Maximum intensity projections 3D imaging was utilized All CT scans are performed using dose optimization technique as appropriate and may include automated exposure control or mA/KV adjustment according to patient size. FINDINGS: Chest Wall: No suspicious thyroid nodules or pathologic lymphadenopathy. Lungs: No acute abnormality. Pleura: No significant effusions or pneumothorax. Mediastinum/sree: No pathologic lymphadenopathy. Pulmonary arteries/Aorta: No filling defect identified. No aortic aneurysm. Heart: Small pericardial effusion. Normal heart size. Multi-vessel coronary disease. Upper abdomen: No acute abnormality.Benign left adrenal nodule. Bones: No acute abnormality. ACDF in the cervical spine. Multilevel degenerative changes are present in the spine. IMPRESSION: Negative for pulmonary embolism. No acute finding within the chest.
[2022-08-29 20:40] LABS: Barbiturates NEGATIVE (NEGATIVE); Benzodiazepines NEGATIVE (NEGATIVE); Cocaine POSITIVE (NEGATIVE); METHAMPHETAM NEGATIVE (NEGATIVE); Methadone NEGATIVE (NEGATIVE); Opiates POSITIVE (NEGATIVE); Phencyclidine NEGATIVE (NEGATIVE); THC Cannibis POSITIVE (NEGATIVE)
--- NOTE | 2022-08-29 20:48 | EDPHYS ---
Physician Documentation [facility] Name: Heather Coon Age: 52 yrs Sex: Female : 1970 Arrival Date: 08/29/2022 Time: 16:19 Bed 13 Private MD: ED Physician Gus Canela HPI: 08/29 16:21 This 52 yrs old Female presents to ER via EMS with complaints of Chest Pain > 30 y/o. jmm 16:21 The patient or guardian reports chest pain that is located primarily in the substernal [facility] area. Onset: gradually, 1 day(s) ago. The pain does not radiate. Is a 52-year-old female with history of bipolar, anxiety, COPD that presents to the ED with complaints of shortness of breath and chest pain beginning yesterday which has been intermittent. Patient states that this is a 2-year anniversary of her 's . Also complains of nausea. Denies abdominal pain.. Historical: - Allergies: 16:26 fluoxetine; db 16:26 Green Tea; db - PMHx: 16:26 Anxiety; Bipolar disorder; Cancer-Cervical; Chronic obstructive lung disease; Chronic db pain; Congestive heart failure; Depression; Diverticulitis; Herniated Back Disc; Hypertension; intestinal mass; Myocardial infarction; pt reports hx of seizures; Spastic Muscles; stroke; - PSHx: 16:26 cervical fusion; Cholecystectomy; foot; Tonsillectomy; db - Immunization history:: Adult Immunizations unknown, Client reports receiving the 2nd dose of the Covid vaccine. - Social history:: Smoking status: Patient reports the use of cigarette tobacco products, smokes one-half pack cigarettes per day. ROS: 16:21 Constitutional: Negative for fever, chills, and weight loss. jmm 16:21 Cardiovascular: Positive for chest pain. 16:21 Respiratory: Positive for shortness of breath. 16:21 All other systems are negative. Exam: 16:21 Constitutional: This is a well developed, well nourished patient who is awake, alert, jmm and in no acute distress. Head/Face: atraumatic. Eyes: EOMI, no conjunctival erythema appreciated ENT: Moist Mucus Membranes Neck: Trachea midline, Supple Chest/axilla: Normal chest wall appearance and motion. Cardiovascular: Regular rate and rhythm. No edema appreciated Respiratory: Normal respirations, no respiratory distress appreciated Abdomen/GI: Non distended Back: Normal ROM Skin: General appearance color normal MS/ Extremity: Moves all extremities, no obvious deformities appreciated, no edema noted to the lower extremities Neuro: Awake and alert Psych: Behavior is normal, Mood is normal, Patient is cooperative and pleasant Vital Signs: 16:15 BP 177 / 149; Pulse 96; Resp 24; Temp 98.7(O); Pulse Ox 97% on R/A; Weight 90.72 kg; db Height 5 ft. 3 in. (160.02 cm); Pain 8/10; 17:30 BP 144 / 69; Pulse 86; Resp 18; Pulse Ox 100% on R/A; kr3 18:39 BP 132 / 70; Pulse 104; Resp 18; Pulse Ox 96% on R/A; kr3 19:11 BP 134 / 82; Pulse 107; Resp 19; Temp 98.6; Pulse Ox 93% ; Pain 9/10; ke1 19:30 Pain 0/10; ke1 16:15 Body Mass Index 35.43 (90.72 kg, 160.02 cm) db MDM: 16:21 Patient medically screened. [facility] 16:30 Differential diagnosis: acute myocardial infarction, acute pericarditis, pleurisy, cp pneumonia, pneumothorax, pulmonary embolus, stable angina, thoracic aortic disection, unstable angina. 19:54 Data reviewed: vital signs, nurses notes. ED course: Patient currently states feeling jmm much better. Currently awaiting repeat Trope and CTA of the chest. I did discuss the patient with Derrick mcgregor who will assume care.. 20:46 Consideration of Admission/Observation Escalation of care including admission/observation considered. 20:46 I considered the following discharge prescriptions or medication management in the emergency department Medications were administered in the Emergency Department. See MAR. Test considered but Not performed: Other Details cardiac echo. Care significantly affected by the following chronic conditions: Congestive Heart Failure, Chronic Obstructive Pulmonary Disease. Counseling: I had a detailed discussion with the patient and/or guardian regarding: the historical points, exam findings, and any diagnostic results supporting the discharge/admit diagnosis, lab results, radiology results. Special discussion: Based on the patient's history, exam, and Dx evaluation, there is no indication for emergent intervention or inpatient Tx. It is understood by the patient/guardian that if the Sx's persist or worsen they need to return immediately for re-evaluation. ED course: Review of test results so repeat troponin returns negative, urine returned positive for cocaine and marijuana. These results with patient who continues to deny use of cocaine and believes she was exposed to it while using her marijuana pipe. Pain improved with meds will discharge to home for continued monitoring. 08/29 16:22 Order name: Basic Metabolic Panel; Complete Time: 17:28 [facility] 08/29 16:22 Order name: CBC with Diff; Complete Time: 16:53 [facility] 08/29 20:45 Interpretation: Normal except: MCH 26.3; PLT 410; RDW 17.8; MPV 6.2. 08/29 16:22 Order name: LFT's; Complete Time: 17:28 [facility] 08/29 16:22 Order name: Magnesium; Complete Time: 17:28 [facility] 08/29 16:22 Order name: NT PRO-BNP; Complete Time: 17:28 [facility] 08/29 16:22 Order name: PT-INR; Complete Time: 17:02 [facility] 08/29 16:22 Order name: Troponin HS; Complete Time: 17:28 [facility] 08/29 16:22 Order name: XRAY Chest (1 view); Complete Time: 17:30 [facility] 08/29 16:22 Order name: COVID-19/FLU A+B; Complete Time: 17:32 [facility] 08/29 18:14 Order name: Troponin High Sensitivity; Complete Time: 20:44 [facility] 08/29 20:45 Interpretation: Reviewed. 08/29 19:55 Order name: Urine Drug Screen; Complete Time: 20:44 [facility] 08/29 20:44 Interpretation: Normal except: SANTIAGO POSITIVE; THC POSITIVE; OPI POSITIVE. 08/29 20:23 Order name: Urine Dipstick-Ancillary; Complete Time: 20:44 [facility] 08/29 20:25 Order name: Urine Dipstick-Ancillary [facility] 08/29 20:25 Order name: Urine --Ancillary (enter results); Complete Time: 09:04 08/29 16:22 Order name: EKG; Complete Time: 16:23 [facility] 08/29 16:22 Order name: Cardiac monitoring; Complete Time: 16:58 [facility] 08/29 16:22 Order name: EKG - Nurse/Tech; Complete Time: 18:09 [facility] 08/29 16:22 Order name: IV Saline Lock; Complete Time: 16:58 [facility] 08/29 16:22 Order name: Labs collected and sent; Complete Time: 16:58 [facility] 08/29 16:22 Order name: O2 Per Protocol; Complete Time: 16:58 [facility] 08/29 16:22 Order name: O2 Sat Monitoring; Complete Time: 16:58 [facility] 08/29 19:45 Order name: CT Chest For PE Angio; Complete Time: 20:44 08/29 20:45 Interpretation: Report reviewed. cp Administered Medications: 04:00 Drug: Xopenex (levalbuterol) (3) 1.25 mg Route: Inhalation; kr3 16:52 Drug: Zofran (Ondansetron) 4 mg Route: IVP; Site: right forearm; kr3 16:55 Drug: morphine 4 mg Route: IVP; Infused Over: 4 mins; Site: right forearm; kr3 19:12 Drug: fentaNYL (PF) 50 mcg Route: IVP; Site: right wrist; ke1 19:30 Follow up: Pain 0/10 Adult; Response: Pain is decreased ke1 Disposition Summary: 08/29/22 20:47 Discharge Ordered Location: Home cp Problem: an ongoing problem cp Symptoms: have improved cp Condition: Stable cp Diagnosis - Chest pain, unspecified cp - Cocaine use, unspecified, uncomplicated cp Followup: cp - With: Private Physician - When: 2 - 3 days - Reason: Recheck today's complaints Discharge Instructions: - Discharge Summary Sheet cp - Nonspecific Chest Pain, Adult cp - Cocaine Use Disorder cp - Steps to Quit Smoking cp - Aspirin and Your Heart cp Forms: - Medication Reconciliation Form cp - Thank You Letter cp - Antibiotic Education cp - Prescription Opioid Use cp Signatures: Dispatcher [employer] EDOctaviano Newman PA PA jmm Page, Corey, PA PA cp Baltazar Mcbride RN RN ke1 Jess Murdock RN RN kr3 Arlette Lyles, RN RN db
--- NOTE | 2022-08-29 20:48 | ER ---
Nurse's Notes [facility] Name: Heather Coon Age: 52 yrs Sex: Female : 1970 Arrival Date: 08/29/2022 Time: 16:19 Bed 13 Private MD: Diagnosis: Chest pain, unspecified;Cocaine use, unspecified, uncomplicated Presentation: 08/29 16:15 Chief complaint: EMS states: SOB and chest pain worse today. Coronavirus screen: db Vaccine status: Patient reports receiving the 2nd dose of the covid vaccine. At this time, unable to obtain information related to travel outside the [place] At this time, the client does not indicate any symptoms associated with coronavirus-19. Ebola Screen: Patient negative for fever greater than or equal to 101.5 degrees Fahrenheit, and additional compatible Ebola Virus Disease symptoms Patient denies exposure to infectious person. Patient denies travel to an Ebola-affected area in the 21 days before illness onset. No symptoms or risks identified at this time. Initial Sepsis Screen: Does the patient meet any 2 criteria? No. Patient's initial sepsis screen is negative. Does the patient have a suspected source of infection? No. Patient's initial sepsis screen is negative. Risk Assessment: Do you want to hurt yourself or someone else? Patient reports no desire to harm self or others. Onset of symptoms was August 29, 2022. 16:15 Method Of Arrival: EMS: [facility] db 16:15 Acuity: ANDER 2 db Triage Assessment: 16:26 General: Appears in no apparent distress. comfortable, Behavior is calm, cooperative. db Pain: Complains of pain in chest. Neuro: Level of Consciousness is awake, alert, obeys commands, Oriented to person, place, time, situation, Speech is normal. Cardiovascular: Reports chest pain, shortness of breath. Respiratory: Reports shortness of breath Airway is patent Respiratory effort is even, unlabored, Respiratory pattern is regular, symmetrical, Breath sounds are coarse bilaterally. GI: No deficits noted. No signs and/or symptoms were reported involving the gastrointestinal system. : No deficits noted. No signs and/or symptoms were reported regarding the genitourinary system. Derm: No deficits noted. No signs and/or symptoms reported regarding the dermatologic system. Musculoskeletal: No deficits noted. No signs and/or symptoms reported regarding the musculoskeletal system. Historical: - Allergies: 16:26 fluoxetine; db 16:26 Green Tea; db - PMHx: 16:26 Anxiety; Bipolar disorder; Cancer-Cervical; Chronic obstructive lung disease; Chronic db pain; Congestive heart failure; Depression; Diverticulitis; Herniated Back Disc; Hypertension; intestinal mass; Myocardial infarction; pt reports hx of seizures; Spastic Muscles; stroke; - PSHx: 16:26 cervical fusion; Cholecystectomy; foot; Tonsillectomy; db - Immunization history:: Adult Immunizations unknown, Client reports receiving the 2nd dose of the Covid vaccine. - Social history:: Smoking status: Patient reports the use of cigarette tobacco products, smokes one-half pack cigarettes per day. Screenin:28 [facility] ED Fall Risk Assessment (Adult) History of falling in the last 3 months, db including since admission No falls in past 3 months (0 pts) Confusion or Disorientation No (0 pts) Intoxicated or Sedated No (0 pts) Impaired Gait No (0 pts) Mobility Assist Device Used No (0 pt) Altered Elimination No (0 pt) Score/Fall Risk Level 0 - 2 = Low Risk Oriented to surroundings, Maintained a safe environment, Educated pt \T\ family on fall prevention, incl call for assistance when getting out of bed. Abuse screen: Denies threats or abuse. Denies injuries from another. Nutritional screening: No deficits noted. Tuberculosis screening: No symptoms or risk factors identified. Assessment: 16:28 Reassessment: Patient appears in no apparent distress at this time. shortness and chest db pain. Pain: Complains of pain in chest Pain does not radiate. Pain began gradually. 17:30 Reassessment: Patient and/or family updated on plan of care and expected duration. Pain kr3 level reassessed. Patient is alert, oriented x 3, equal unlabored respirations, skin warm/dry/pink. 18:37 Reassessment: patients Titus Ardon called asking or information. asked kr3 patient if it was okay to share information with him and she approved. 19:10 Pain: Complains of pain in chest Pain does not radiate. Pain currently is 9 out of 10 ke1 on a pain scale. Pain began gradually. Vital Signs: 16:15 BP 177 / 149; Pulse 96; Resp 24; Temp 98.7(O); Pulse Ox 97% on R/A; Weight 90.72 kg; db Height 5 ft. 3 in. (160.02 cm); Pain 8/10; 17:30 BP 144 / 69; Pulse 86; Resp 18; Pulse Ox 100% on R/A; kr3 18:39 BP 132 / 70; Pulse 104; Resp 18; Pulse Ox 96% on R/A; kr3 19:11 BP 134 / 82; Pulse 107; Resp 19; Temp 98.6; Pulse Ox 93% ; Pain 9/10; ke1 19:30 Pain 0/10; ke1 16:15 Body Mass Index 35.43 (90.72 kg, 160.02 cm) db ED Course: 16:19 Patient arrived in ED. iw 16:19 Octaviano Keith PA is PHCP. jmm 16:19 Gus Canela MD is Attending Physician. jmm 16:23 Jess Murdock RN is Primary Nurse. kr3 16:26 Triage completed. db 16:28 Arm band placed on Patient placed in an exam room. db 16:29 Patient maintains SpO2 saturation greater than 95% on room air. db 16:58 Inserted saline lock: 22 gauge in right forearm, using aseptic technique. Blood kr3 collected. 17:21 XRAY Chest (1 view) In Process Unspecified. EDMS 18:09 EKG done, by ED staff, reviewed by Gus Canela MD. mm9 19:00 Patient has correct armband on for positive identification. Client placed on continuous ke1 cardiac and pulse oximetry monitoring. NIBP monitoring applied. launch manager on. Pulse ox on. NIBP on. Sitter at bedside. 19:22 Troponin High Sensitivity Sent. ke1 20:28 CT Chest For PE Angio In Process Unspecified. EDMS 20:44 PHCP role handed off by Octaviano Keith PA cp 20:44 Derrick Castillo PA is PHCP. cp 20:51 No provider procedures requiring assistance completed. ke1 21:11 IV discontinued. ke1 Administered Medications: 04:00 Drug: Xopenex (levalbuterol) (3) 1.25 mg Route: Inhalation; kr3 16:52 Drug: Zofran (Ondansetron) 4 mg Route: IVP; Site: right forearm; kr3 16:55 Drug: morphine 4 mg Route: IVP; Infused Over: 4 mins; Site: right forearm; kr3 19:12 Drug: fentaNYL (PF) 50 mcg Route: IVP; Site: right wrist; ke1 19:30 Follow up: Pain 0/10 Adult; Response: Pain is decreased ke1 Medication: 16:28 VIS not applicable for this client. db Outcome: 20:47 Discharge ordered by . cp 21:10 Discharged to home ambulatory. ke1 21:10 Condition: good 21:10 Discharge instructions given to patient. 21:13 Patient left the ED. ke1 Signatures: Dispatcher [employer] EDMS Octaviano Keith PA PA Lorena Vazquez, RN RN Derrick Martin PA PA cp Ebrottie, Kouassi, RN RN ke1 Jess Murdock RN RN kr3 Arlette Lyles RN RN Selin Warren mm9
[2022-08-29 21:01] LABS: Urine Specific Gravity/Preg 1.025 (1.005-1.030)
[2022-08-29 21:37] VITALS: BP 134/82; TEMP 98.6; O2SAT 93
== END 2022-08-29 21:13 | disposition home or self-care (01) ==
LOC: ER 16:14
DX: R07.9 Chest pain, unspecified (principal); F14.90 Cocaine use, unspecified, uncomplicated; F17.210 Nicotine dependence, cigarettes, uncomplicated
CPT/HCPCS: 0240U; 36415; 71045; 71275; 80048; 80076; 80307; 81003; 81025; 83735; 83880; 84484; 85025; 85610; 93005; 99285; J2405; J3010; J7614; Q9967

== ENCOUNTER 2022-09-22 09:44 | Emergency (ER) | payer SELFPAY ==
--- OUTSIDE RECORDS SUMMARY | 2022-09-22 09:58 | XMS REPORT | Continuity of Care Document ---
:1970 Author Organization [facility] [place] [facility] t Address [address] [facility] [place] [address] Care Team Providers Name Role Phone Aneta Silva Primary Care Physician [phone] Rk CAMPOS, Shy Stoner Attending Clinician Halima [...] Attending Clinician Glory Esteves MD Attending Clinician [phone] Selina Martines MD Attending Clinician Vaccine, Chung Pierson Attending Clinician Unavailable Jose Frederick MD Attending Clinician JOSE FREDERICK Attending Clinician Unavailable NICHELLE ALLISON Attending Clinician Unavailable Sully APPEALS WRITERNichelle Attending Clinician Doctor Unassigned, [place] Attending Clinician Unavailable Miky Nava RN Attending [...] Disease Active [facility]: [place] [id number] [facility] Cardiomyop Cardiomyop Disease Active U nivers athy athy 08-01 ity of 00:00: [address] Branch NSVT NSVT Disease Active Univers (nonsustai (nonsustai 08-01 it y of keisha keisha 00:00: [place] ventricula ventricula 00 Me dical r r Branch tachycardi tachycardi a) a) Primary Primary Disease Active Univers hypertensi hypertensi 1-12 it y of on on 00:00: [place] [facility] Other Other Disease Active Univers hyperlipid hyperlipid 1-12 it y of emia emia 00:00: [place] [facility] Chest Chest Disease Active Univers pain, pain, [...] 00:00: [place] involving involving 00 Medi kwame [place] 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 Snores Snores Disease Active Univers 1-12 ity of 00:00: [place] [facility] Cigarette Cigarette Disease Active Uni vers smoker smoker 1-12 ity of 00:00: [place] 00 Medical Branch Chronic Chronic Disease Active 2021-07 [...] anxiety 09-27 ity of disorder disorder 00:00: [place] [facility] Agoraphobi Agoraphobi Disease Active U nivers a a 3 ity of 00:00: [place] [facility] Bipolar Bipolar Disease Active Univers disorder, disorder, 09-27 ity of in partial [place] remission, remission, 00 Me dical most most Branch recent recent episode episode manic manic 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 09-27 it y of disorder disorder 00:00: [place] [facility] Breast Breast Disease Active Univers mass, left mass, left 09-17 it y of 00:00: [place] [facility] Anxiety Anxiety Disease Active Univers 3 ity of 00:00: [place] [facility] Lower back Lower back Disease Active U nivers pain pain 3 ity of 00:00: [place] [facility] High blood High blood Disease Active U nivers pressure pressure 3 ity of 00:00: [place] [facility] COPD COPD Disease Active Univers (chronic (chronic 3 ity of obstructiv obstructiv 00:00: [place] e e 00 Medical pulmonary pulmonary Bran ch disease) disease) Obesity Obesity Disease Active Univers 3- ity of 00:00: [place] 00 Medical Branch Allergies, Adverse Reactions, Alerts [...] Stop Date Source Natural mother Alcohol abuse [facility] Natural mother Cancer [facility] Natural mother Diabetes [facility] Natural mother Heart disease [facility] Natural mother Hyperlipidemia [facility] Natural mother Kidney disease [facility] Natural mother Stroke [facility] Paternal uncle Diabetes [facility] Social History Social Habit Start Date Stop Date Quantity Comments Source History of tobacco Passive smoker Un iversity of use [place] [facility] History SDOH Social Unive rsity of Connections Get [place] [facility] ical Together Branch History SDOH Social Unive rsity of Connections [facility] Medical Branch History SDOH Social Unive rsity of Connections [place] [facility] Membership Branch History SDOH Social Unive rsity of Connections [place] [facility] Meetings Branch History SDOH [facility] [...] 1 Univers ity of Scarcity 00:00:00 00:00:00 [place] [facility] History SDOH 2022-08-01 2022-08-01 2 University o f Transport Med 00:00:00 00:00:00 [place] [facility] History SDOH 2022-08-01 2022-08-01 2 University o f Transport Non-Med 00:00:00 00:00:00 [place] M edical [facility] Cigarette 2022-07-31 2022-07-31 University of pack-years 00:00:00 00:00:00 [facility] Education 2022-07-31 2022-07-31 14 University of 00:00:00 00:00:00 [facility] Sex Assigned At [address] [facility] 00:00:00 00:00:00 [facility] Smoking Status Start Date Stop Date Source Current every day smoker 2022-08-02 00:00:00 [facility] Medications Ordered Filled Start Stop Current [...] 1-13 by mouth ity of 23:49: daily. [place] [address] Medical Branch omega-3 2022-0 Yes 1g Take [...] by mouth ity of 23:49: every 8 [place] [address] (eight) Medical hours as Branch needed. pantoprazol 3-0 Yes 40mg Take 40 mg Univers e 40 mg EC 1-13 by mouth ity o f tablet 23:49: daily. [place] [address] Medical Branch MULTIVITAMI 2022-0 Yes 1{tbl} Take 1 Tab Univers N ORAL 1-13 by mouth ity of 23:49: daily. [place] [address] Medical Branch omega-3 2022-0 Yes 1g Take 1 g Univer s fatty 1-13 by mouth ity of acids-vitam 23:49: [place] in [place] (FISH 34 Medical OIL) 1,000 Branch mg capsule loratadine 2022-0 Yes Take by Univ ers (CLARITIN 1-13 mouth ity of LIQUI-GEL) 23:49: daily. [place] 10 mg 34 Medical capsule Branch ondansetron 3-0 Yes 4mg Take 4 mg U nivers 4 mg tablet 1-13 by mouth ity of 23:49: every 8 [place] [address] (eight) Medical hours as Branch needed. pantoprazol 2023-0 Yes 40mg Take 40 mg Univers e 40 mg EC 1-13 by mouth ity o f tablet 23:49: daily. [place] [address] Medical Branch MULTIVITAMI 2022-0 Yes 1{tbl} Take 1 Tab Univers N ORAL 1-13 by mouth ity of 23:49: daily. [place] [address] Medical Branch omega-3 2022-0 Yes 1g Take [...] by mouth ity of 23:49: every 8 [place] 34 (eight) Medical hours as Branch needed. pantoprazol 2022-0 Yes 40mg Take 40 mg Univers e 40 mg EC 08-01 by mouth ity o f tablet 23:49: daily. [place] [address] Medical Branch benzonatate 2022-0 Yes 100mg 100 [...] Shortness of Breath sulfur 3-0 2023- No [id number] 5mL 5 mL, Unive rs hexafluorid 08-01-13 Intravenou i ty of e microsphr 17:00: 17:00 s, ONCE, 1 [place] (LUMASON) 00 :00 dose, On Medica l injection 5 Fri Branch mL 08/01/22 at 1100, Routine
environmental studies faculty member approving Restricted medication : TCWOODY pantoprazol [...] Javier as mg [address] [facility] 07/31/22 at 2352, Until Discontinu ed, Routine, Seizures, Agitation, Anxiety, ETOH / Cocaine Withdrawl foLIC acid 2022-0 Yes 1mg 1 mg, Univer s (FOLATE) 13 Oral, ity of tablet 1 mg 05:45: DAILY, [place] 00 First dose Medical on [facility] 07/31/22 at 2345, Until Discontinu ed, Routine thiamine 2022-0 Yes 100mg 100 mg, Unive rs (VITAMIN 13 Oral, ity of B1) tablet 05:45: DAILY, [place] 100 mg 00 First dose Medical on [facility] 07/31/22 at 2345, Until Discontinu ed, Routine LORazepam 2022- No .5mg 0.5 mg, Univ ers (ATIVAN) 08-01 Slow IV ity of injection 05:30: 05:29 Push, [place] 0.5 mg 00 :00 ONCE, 1 Medical dose, On [facility] 07/31/22 at 2330, MICHAEL atorvastati 0 Yes 40mg 40 mg, Univ ers n (LIPITOR) 08-01 Oral, QHS, it y of tablet 40 03:00: [place] mg 00 on [facility] 07/31/22 at Branch 2100, Until Discontinu ed, Routine diphenhydrA 0 Yes 25mg 25 mg, Univ ers MINE 08-01 Oral, ity of (BENADRYL) 00:32: Q6HPRN, [place] tablet 25 02 Starting Medica l mg on [facility] 07/31/22 at 1832, Until Discontinu ed, Routine, Itching enoxaparin 0 Yes 40mg 40 mg, Unive rs (LOVENOX) 07-31 Subcutaneo ity of injection 23:00: [place], DAILY, [place] 40 mg 00 First dose Medical on [facility] 07/31/22 at 1700, Until Discontinu ed, Routine morpHINE (2 2022- No 2mg 2 mg, Slow Univers mg/mL) 07-31 IV Push, ity of injection 2 23:00: 22:29 ONCE, 1 [place] mg 00 :00 dose, On Medical [facility] 07/31/22 at 1700, Routine HYDROcodone 2022-0 Yes 1{tbl} 1 tablet, Univers -acetaminop 12 Oral, ity of hen (NORCO) 22:01: Q6HPRN, [place] as 10-325 mg 36 Starting Medica l tablet 1 on [facility] Branch tablet 07/31/22 at 1601, Until Discontinu ed, Routine, Pain (scale 7-10) HYDROcodone 2022-0 2022- Yes 1{tbl} 1 tablet, Univers -acetaminop 07-3114 Oral, ity of hen (NORCO 22:01: 22:00 Q6HPRN, [place] as 5) 5-325 mg 34 :34 Starting Medi kwame tablet 1 on [facility] Branch tablet 07/31/22 at 1601, Until [...] ity of succ 19:30: 18:54 Push, ONCE [place] (SOLU-MEDRO 00 :00 NOW, 1 Medica l L) dose, On Branch injection Arpita 125 mg 07/31/22 at 1330, MICHAEL ipratropium 2022- No 3mL 3 mL, [facility] ers -albuteroL -12 12 Inhalation it y of (DUONEB) 19:30: 18:48 , ONCE, 1 [place] as 0.5 mg-3 00 :00 dose, On Medical mg(2.5 mg [place] Branch base)/3 mL 07/31/22 at nebulizer 1330, MICHAEL solution 3 mL pantoprazol Yes 40mg Take 40 mg Univers e 40 mg EC 12 by mouth ity o f tablet 17:15: daily. [place] 40 Medical Branch MULTIVITAMI Yes 1{tbl} Take 1 Tab Univers N ORAL 12 by mouth ity of 15:50: daily. [place] 57 Medical Branch loratadine Yes Take by [facility] ers (CLARITIN 12 mouth ity of LIQUI-GEL) 15:50: daily. [place] 10 mg 57 Medical capsule Branch ondansetron Yes 4mg Take 4 mg U nivers 4 mg tablet 12 by mouth ity of 15:50: every 8 [place] 57 (eight) Medical hours as Branch needed. omega-3 Yes 1g Take 1 g [facility] by mouth ity of acids-vitam 15:21: [place] (FISH 27 Medical OIL) 1,000 Branch mg capsule TAKE ONE No (1) 1-09 TABLET(S) 00:00: BY MOUTH 00 THREE TIMES A DAY NEEDED. Methylpredn 2021-07- No [id number] 4mg Take 1 Univers isolone 4 0-22 10-24 tablet ity of mg tablet 00:00: 04:59 through [place] 00 :00 enteral Medical tube in Branch the morning for 1 dose. Methylpredn 2021-07- No [id number] 4mg Take 1 Univers isolone 4 0-21 10-23 tablet ity of mg tablet 00:00: 04:59 through [place] 00 :00 enteral Medical tube every Branch 12 (twelve) hours for 2 doses. MULTIVITAMI 2021-07 Yes 1{tbl} Take 1 Tab Univers N ORAL 0-20 by mouth ity of 14:44: daily. [place] 48 Medical Branch omega-3 2021-07 Yes 1g Take 1 g Univer s fatty 0-20 by mouth ity of acids-vitam 14:44: daily. [place] (FISH 48 Medical OIL) 1,000 Branch mg capsule loratadine 2021-07 Yes Take by [facility] ers (CLARITIN 0-20 mouth ity of LIQUI-GEL) 14:44: daily. [place] 10 mg 48 Medical capsule Branch ondansetron 2021-07 Yes 4mg Take 4 mg U nivers (ZOFRAN) 4 0-20 by mouth ity o f mg tablet 14:44: every 8 [place] 48 (eight) Medical hours as Branch needed. pantoprazol 2021-07 Yes 40mg Take 40 mg Univers e 0-20 by mouth ity of (PROTONIX) 14:44: daily. [place] 40 mg EC 48 Medical tablet Branch DULoxetine 2021-07 Yes 30mg 30 mg, Unive rs (CYMBALTA) 0-20 Oral, ity of capsule 30 14:00: DAILY, [place] mg 00 First dose Medical on [facility] Branch 05/08/22 at 0900, Until Discontinu ed, Routine divalproex 2021-07 Yes 1000mg 1,000 mg, Univers (DEPAKOTE) 0-20 Oral, BID, ity of EC tablet 13:00: First dose [place] 1,000 mg 00 (after Medical last Branch modificati on) on [facility] 05/08/22 at 0800, Until Discontinu ed, Routine Methylpredn 2021-07- No 4mg 4 mg, [facility] ers isolone 0-20 10-21 Oral, Q8H ity of (MEDROL) 08:50: 08:59 TAPER, 3 [place] tablet 4 mg 10 :00 doses, Medica l First dose Branch on [facility] 05/08/22 at 0400, Last dose on [facility] 05/08/22 at 2000, Routine acetaminoph 2021-07 Yes 1{tbl} 1 tablet, Univers en-codeine 0-20 Oral, ity of (TYLENOL 04:07: Q4HPRN, [place] #3) 300-30 01 Starting Medic al mg [...] Discontinu ed, Routine, Anxiety cyclobenzap 2021-07 Yes [id number] 5mg Take 1 Univers rine 5 mg 0-20 tablet by ity o f tablet 00:00: mouth in [place] [address] the Medical morning [place] and 1 tablet at noon and 1 tablet in the evening. cyclobenzap 2021-07 Yes [id number] 5mg Take 1 Univers rine 5 mg 0-20 tablet by ity o f tablet 00:00: mouth in [place] [address] the Medical morning Branch and 1 tablet at noon and 1 tablet in the evening. cyclobenzap 2021-07 Yes [id number] 5mg Take 1 Univers rine 5 mg 0-20 tablet by ity o f tablet 00:00: mouth in [place] [address] the Medical morning Branch and 1 tablet at noon and 1 tablet in the evening. cyclobenzap 2021-07 Yes [id number] 5mg Take 1 Univers rine 5 mg 0-20 tablet by ity o f tablet 00:00: mouth in [place] [address] the Medical morning Branch and 1 tablet at noon and 1 tablet in the evening. cyclobenzap 2021-07 Yes [id number] 5mg Take 1 Univers rine 5 mg 0-20 tablet by ity o f tablet 00:00: mouth in [address] morning Branch and 1 tablet at noon and 1 tablet in the evening. DULoxetine 2021-07 No [id number] 60mg Take 2 Univers (CYMBALTA) 0-20 11-20 capsules ity of 30 mg 00:00: 05:59 by mouth [place] capsule 00 :00 in the Medical morning Branch for 30 days. divalproex 2021-07- No [id number] 750mg Take 3 Univers (DEPAKOTE) 0-20 11-20 tablets by it y of 250 mg EC 00:00: 05:59 mouth [place] tablet 00 :00 every 8 Medical (eight) Branch hours for 30 days. LORazepam 1 2021-07- No [id number] 1mg Take 1 Univers mg tablet 0-20 [...] Indication s: acute pain Methylpredn 2021-07- No [id number] 4mg Take 1 Univers isolone 4 0-20 -22 tablet by ity of mg tablet 00:00: 04:59 mouth [place] 00 :00 every 8 Medical (eight) Branch hours for 3 doses. divalproex 2021-07- No 750mg 750 mg, Un lois (DEPAKOTE) 0-19 10-20 Oral, BID, it y of EC tablet 01:00: 09:40 [place] dose [place] 750 mg 00 :23 on [facility] 05/06/22 Branch at 2000, Until Discontinu ed, Routine levETIRAcet 2021-07- No 1500mg 1,500 mg, Univers am (KEPPRA) 0-18 10-18 Oral, BID, i ty of tablet 13:00: 18:38 First dose [place] 1,500 mg 00 :22 (after Medical last Branch modificati on) on [facility] 05/06/22 at 0800, Until Discontinu ed, Routine levETIRAcet 2021-07- No 1000mg 1,000 mg, Univers am (KEPPRA) 0-18 10-18 IV ity of in NACL 05:00: 05:46 Piggyback, [place] as (ISO-OS) 00 :00 ONCE, 1 Medical 1,000 dose, On [place] mg/100 mL Tue RTU 05/06/22 at 0000, Administer over 15 Minutes, 100 mL methocarbam 2021-07 No 500mg 500 mg, U nivers oL 0-18 -18 Oral, QID, ity of (ROBAXIN) 02:15: 23:21 First dose [place] tablet 500 00 :42 on [facility] Medical mg 05/05/22 Branch at 2115, Until Discontinu ed, Routine LORazepam 2021-07 No 2mg 2 mg, Univer s (ATIVAN) 0-18 05-06 Oral, ity of tablet 2 mg 01:30: 01:03 ONCE, 1 [place] 00 :00 dose, On [facility] 05/05/22 at 2030, Routine levETIRAcet 2021-07- No 1000mg 1,000 mg, Univers am (KEPPRA) 0-18 05-06 Oral, BID, i ty of tablet 01:00: 04:48 First dose [place] 1,000 mg 00 :06 on [facility] 05/05/22 Branch at 2000, Until Discontinu ed, Routine enoxaparin 2021-07 Yes 40mg 40 mg, Unive rs (LOVENOX) 0-18 Subcutaneo ity of injection 00:15: us, Q24H, [place] as 40 mg 00 First dose Medical on [facility] 05/05/22 at 1915, Until Discontinu ed, Routine levETIRAcet 2021-07 No 1000mg 1,000 mg, Univers am (KEPPRA) 0-17 10-17 IV ity of in NACL 19:45: 20:05 Piggyback, [place] as (ISO-OS) 00 :00 ONCE, 1 Medical 1,000 dose, On [place] mg/100 mL [facility] RTU 05/05/22 at 1445, Administer over 15 Minutes, 100 mL clonazePAM 2021-07 Yes .5mg 0.5 mg, Univ ers (KLONOPIN) 0-17 Oral, BID, ity of tablet 0.5 19:30: First dose [place] mg 00 on [facility] 05/05/22 Branch at 1430, Until Discontinu ed, Routine ibuprofen 2021-07 Yes 600mg 600 mg, Univ ers (IBU) 0-17 Oral, TID ity of tablet 600 19:30: MEALS, [place] mg 00 First dose Medical on [facility] 05/05/22 at 1430, Until Discontinu ed, Routine gabapentin 2021-07 Yes 300mg 300 mg, Uni vers (NEURONTIN) 0-17 Oral, TID, it y of capsule 300 19:30: First dose [place] mg 00 on [facility] 05/05/22 Branch at 1430, Until Discontinu ed, Routine cyclobenzap 2021-07 Yes 5mg 5 mg, Unive rs rine 0-17 Oral, TID, ity of (FLEXERIL) 19:30: First dose [place] tablet 5 mg 00 on [facility] Medica l 05/05/22 Branch at 1430, Until Discontinu ed, Routine acetaminoph 2021-07 Yes 1000mg 1,000 mg, Univers en 0-17 Oral, Q8H, ity of (TYLENOL) 19:30: First dose [place] tablet 00 on [facility] 1,000 mg 05/05/22 Branch at 1430, Until Discontinu ed, Routine pantoprazol 2021-07 Yes 40mg 40 mg, Univ ers e 0-17 Oral, ity of (PROTONIX) 14:00: DAILY, [place] EC tablet 00 First dose Medi kwame 40 mg on [facility] 05/05/22 at 0900, Until Discontinu ed, Routine docusate 2021-07 Yes 100mg 100 mg, Unive rs (COLACE) 0-17 Oral, ity of capsule 100 14:00: DAILY, [place] mg 00 First dose Medical on [facility] 05/05/22 at 0900, Until Discontinu ed, Routine HYDROcodone 2021-07- No 1{tbl} 1 tablet, Univers -acetaminop 0-17 10-17 Oral, ity of hen (NORCO) 10:32: 19:18 Q6HPRN, [place] 10-325 mg 02 :52 Starting Medica l tablet 1 on [facility] tablet 05/05/22 at 0532, Until [facility] 05/05/22 at 1418, Routine, Pain (scale 7-10) ondansetron 2021-07 Yes 4mg 4 mg, Slow Univers (ZOFRAN 0-17 IV Push, ity of (PF)) 06:49: Q6HPRN, [place] injection 4 57 Starting Medi kwame mg on [facility] Branch 05/05/22 at 0149, Until Discontinu ed, Routine, Nausea and Vomiting (N/V) HYDROcodone 2021-07- No 1{tbl} 1 tablet, Univers -acetaminop 005-05 Oral, ity of hen (NORCO 06:49: 10:32 Q6HPRN, [place] as 5) 5-325 mg 41 :14 Starting Medi kwame tablet 1 on [facility] tablet 05/05/22 at 0149, Until [facility] 05/05/22 at 0532, Routine, Pain (scale 7-10) acetaminoph 2021-07 No 325mg 325 mg, U nivers en 005-05 Oral, ity of (TYLENOL) 06:49: 19:18 Q4HPRN, [place] tablet 325 39 :52 Starting Medic al mg on [facility] 05/05/22 at 0149, Until [facility] 05/05/22 at 1418, Routine, Pain (scale 4-6) ondansetron 2021-07- No 4mg 4 mg, Univ ers (ZOFRAN) 005-05 Oral, ity of tablet 4 mg 04:00: 03:26 ONCE, 1 [place] 00 :00 dose, On [facility] 05/04/22 at 2300, Routine morpHINE (2 2021-07- No 2mg 2 mg, Slow Univers mg/mL) 05-05 IV Push, ity of injection 2 04:00: 03:26 ONCE, 1 [place] mg 00 :00 dose, On [facility] 05/04/22 at 2300, Routine aspirin 81 2021-0 Yes [id number] 81mg Take 1 U nivers mg chewable 9-28 tablet by ity of tablet 00:00: mouth in [place] 00 the Medical morning. Branch aspirin 81 2021-0 Yes [id number] 81mg Take 1 U nivers mg chewable 9-28 tablet by ity of tablet 00:00: mouth in [place] 00 the Medical morning. Branch aspirin 81 2021-0 Yes [id number] 81mg Take 1 U nivers mg chewable 9-28 tablet by ity of tablet 00:00: mouth in [place] 00 the Medical morning. Branch aspirin 81 Yes [id number] 81mg Take 1 U nivers mg chewable 9-28 tablet by ity of tablet 00:00: mouth in [place] the Medical morning. Branch aspirin 81 0 Yes [id number] 81mg Take 1 U nivers mg chewable 9-28 tablet by ity of tablet 00:00: mouth in [place] the Medical morning. Branch aspirin 81 Yes [id number] 81mg Take 1 U nivers mg chewable 9-28 tablet by ity of tablet 00:00: mouth in [place] 00 the Medical morning. Branch MULTIVITAMI Yes 1{tbl} Take 1 Tab Univers N ORAL 04-15 by mouth ity of 17:39: daily. [place] 14 Medical Branch omega-3 Yes 1g Take 1 g Univer s fatty 04-15 by mouth ity of acids-vitam 17:39: daily. [place] in [place] (FISH 14 Medical OIL) 1,000 Branch mg capsule loratadine Yes Take by Univ ers (CLARITIN 04-15 mouth ity of LIQUI-GEL) 17:39: daily. [place] 10 mg 14 Medical capsule Branch ondansetron Yes 4mg Take 4 mg U nivers (ZOFRAN) 4 04-15 by mouth ity o f mg tablet 17:39: every 8 [place] 14 (eight) Medical hours as Branch needed. pantoprazol Yes 40mg Take 40 mg Univers e 04-15 by mouth ity of (PROTONIX) 17:39: daily. [place] 40 mg EC 14 Medical tablet Branch [...] (after Medical last Branch modificati on) on [facility] 04/14/22 at 2145, Until Discontinu ed, Routine ketorolac 2021- No 15mg 15 mg, Unive rs (TORADOL) 04-15 Slow IV ity of injection 02:13: 02:22 Push, [place] 15 mg 00 :00 ONCE, 1 Medical dose, On Branch [facility] 04/14/22 at 2115, Routine levETIRAcet Yes [id number] 1000mg Take 1 Univers am 1,000 mg 9-27 tablet by ity of tablet 00:00: mouth in [place] [address] the Medical morning Branch and 1 tablet in the evening. atorvastati Yes [id number] 40mg Take 1 Univers n 40 mg 9-27 tablet by ity of tablet 00:00: mouth at [place] [address] bedtime. Medical Branch atorvastati Yes [id number] 40mg Take 1 Univers n 40 mg 9-27 tablet by ity of tablet 00:00: mouth at [place] [address] bedtime. Medical Branch atorvastati Yes [id number] 40mg Take 1 Univers n 40 mg 9-27 tablet by ity of tablet 00:00: mouth at [place] [address] bedtime. Medical Branch atorvastati Yes [id number] 40mg Take 1 Univers n 40 mg 9-27 tablet by ity of tablet 00:00: mouth at [place] 00 bedtime. Medical Branch atorvastati Yes [id number] 40mg Take 1 Univers n 40 mg 9-27 tablet by ity of tablet 00:00: mouth at [place] 00 bedtime. Medical Branch atorvastati Yes [id number] 40mg Take 1 Univers n 40 mg 9-27 tablet by ity of tablet 00:00: mouth at [place] 00 bedtime. Medical Branch levETIRAcet 2021- No [id number] 1000mg Take 1 Univers am 1,000 mg 9-27 10-20 tablet by it y of tablet 00:00: 00:00 mouth in [place] 00 :00 the Medical morning Branch and 1 tablet in the evening. lidocaine 5 2021- No [id number] 1{patch Apply 1 Univers % (700 04-15 [...] 12 Medical patch 1 Hours, Branch Patch [id number], Starting on Thu04/14/22 at 1645, Until Discontinu ed, Routine, Localized pain aspirin Yes 81mg 81 mg, Univers chewable 04-14 Oral, ity of tablet 81 21:30: DAILY, [place] mg 00 First dose Medical on Thu [place] 04/14/22 at 1630, Until Discontinu ed, Routine acetaminoph Yes 650mg 650 mg, Un losi en 04-14 Oral, ity of (TYLENOL) 21:29: Q6HPRN, [place] tablet 650 25 Starting Medic al mg on Thu [place] 04/14/22 at 1629, Until Discontinu ed, Routine, Pain (scale 1-3), Temp > 38.5 C, Temp > 37.5 C HYDROcodone 2021-0 202- No 1{tbl} 1 tablet, Univers -acetaminop 04-14 Oral, ity of hen (NORCO) 21:29: 05:39 Q6HPRN, [place] 10-325 mg 02 :41 Starting Medica l tablet 1 on [facility] tablet 04/14/22 at 1629, Until Tu04/15/22 at 0039, Routine, Pain (scale 7-10), Pain (scale 4-6) sulfur 0 202- No [id number] 5mL 5 mL, Univ ers hexafluorid 04-14 Intravenou i ty of e microsphr 16:45: 16:45 s, ONCE, 1 [place] (LUMASON) 00 :00 dose, On Medica l injection 5 Thu [place] mL 04/14/22 at 1145, Routine
environmental studies faculty member approving Restricted medication : G[place] WE[employer]STER clopidogreL Yes 75mg 75 mg, Univ ers (PLAVIX) 75 04-14 Oral, ity of mg tablet 14:00: DAILY, [place] 75 mg 00 First dose Medical on [facility] 04/14/22 at 0900, Until Discontinu ed, Routine pantoprazol Yes 40mg 40 mg, Univ ers e 04-14 Oral, ity of (PROTONIX) 14:00: DAILY, [place] EC tablet 00 First dose Medi kwame 40 mg on [facility] 04/14/22 at 0900, Until Discontinu ed, Routine atorvastati Yes 40mg 40 mg, Univ ers n (LIPITOR) 04-14 Oral, QHS, it y of tablet 40 02:00: First dose [place] mg 00 on [facility] 04/13/22 at Branch 2100, Until Discontinu ed, Routine LORazepam 2021- No 1mg 1 mg, Univer s (ATIVAN) 04-14 Oral, ity of tablet 1 mg 01:30: 01:45 ONCE, 1 [place] 00 :00 dose, On Medical [facility] 04/13/22 at 2030, Routine methocarbam Yes [...] Q12H, Med ical First dose Branch on [place] 04/13/22 at 2000, Until Discontinu ed, Routine acetaminoph 2021- No 650mg 650 mg, U nivers en 04-14 Oral, ity of (TYLENOL) 00:23: 21:29 Q6HPRN, [place] tablet 650 25 :42 Starting Medic al mg on [facility] 04/13/22 at 1923, Until 04/14/22 at 1629, Routine, Pain (scale 1-3), Pain (scale 4-6), Temp > 38.5 C, Temp > 37.5 C lidocaine 2021- No 1{patch 1 Patch, Univers (LIDODERM) 04-14 } Topical, ity of 5 % (700 00:22: 13:51 [place] mg/patch) 00 :00 over 12 Medical patch 1 Hours, [place] ONCE, 1 dose, On [place] 04/13/22 at 1930, Routine FENTanyl PF 2021- No 50ug 50 mcg, Un lois (SUBLIMAZE 04-13 Slow IV ity o f (PF)) 20:30: 19:22 Push, [place] injection 00 :00 ONCE, 1 Medical 50 mcg dose, On [facility] 04/13/22 at 1530, Routine aspirin 2021- No 650mg 650 mg, Unive rs chewable 04-13 Oral, ity of tablet 650 20:15: 20:15 ONCE, 1 [place] as mg 00 :00 dose, On Medical [facility] 04/13/22 at 1515, Routine clopidogreL 2021- No 300mg 300 mg, U nivers (PLAVIX) 04-13 Oral, ity of 300 mg 20:00: 19:15 ONCE, 1 [place] tablet 300 00 :00 dose, On Medic al mg [facility] 04/13/22 at 1500, Routine ondansetron 2021- No 4mg 4 mg, Slow Univers (ZOFRAN 04-13 IV Push, ity of (PF)) 19:30: 19:22 ONCE, 1 [place] injection 4 00 :00 dose, On Medi kwame mg [facility] 04/13/22 at 1430, MICHAEL iopamidol 2021- No [id number] 100mL 100 mL, Univers (ISOVUE 04-13 Intravenou ity o f 370-500 mL) 18:31: 18:32 s, ONCE, 1 [place] injection 00 :00 dose, On Medica l 100 mL [facility] 04/13/22 at 1345, Routine NaCl 0.9% Yes 5mL 5 mL, Slow Un lois (NS) 04-13 IV Push, ity of injection 5 18:14: PRN - [place] mL 11 [facility] Medical NS, Branch Starting on [place] 04/13/22 at 1314, Until Discontinu ed, 10 mL aspirin Yes 324mg 324 mg, Univer s chewable 508 Oral, ity of tablet 324 14:00: DAILY, [place] mg 00 First dose Medical on [facility] 11/24/21 at 0900, Until Discontinu ed, Routine [...] 00 :00 dose, On Medi kwame mg [facility] 11/23/21 Branch at 1645, MICHAEL NaCl 0.9% [...] Sat Medica l mg(2.5 mg 03/16/21 at [facility])/3 mL 2100, MICHAEL nebulizer solution 3 [...] Slow IV ity of succ 01:57: 02:11 [place], [place] (SOLU-MEDRO 00 :00 ONCE, 1 Medic [...] Slow IV ity of succ 01:57: 02:11 [place], [place] (SOLU-MEDRO 00 :00 ONCE, 1 Medic al L) dose, Sat Branch injection 03/16/21 at 125 mg 2100, STAT ipratropium 2020-0 2020- No 3mL 3 mL, Univ ers -albuteroL 03-17 Inhalation it y of (DUONEB) 01:57: 02:15 , ONCE, 1 [place] 0.5 mg-3 00 :00 dose, Sat Medica l mg(2.5 mg 03/16/21 at [facility])/3 mL 2100, MICHAEL nebulizer solution 3 mL levoFLOXaci No [id number] 500mg Take 1 Univers n 500 mg 03-17 tablet by ity o f tablet 00:00: 04:59 mouth [place] 00 :00 daily for Medical 6 days. Nafisa levoFLOXaci No [id number] 500mg Take 1 Univers n 500 mg 03-17 tablet by ity o f tablet 00:00: 04:59 mouth [place] 00 :00 daily for Medical 6 days. Nafisa levoFLOXaci No [id number] 500mg Take 1 Univers n 500 mg 03-17 tablet by ity o f tablet 00:00: 04:59 mouth [place] 00 :00 daily for Medical 6 days. Nafisa levoFLOXaci No [id number] 500mg Take 1 Univers n 500 mg 03-17 tablet by ity o f tablet 00:00: 04:59 mouth [place] 00 :00 daily for Medical 6 days. Branch predniSONE No [id number] 30mg Take 3 Univers 10 mg 03-17 tablets by ity of tablet 00:00: 04:59 mouth [place] 00 :00 daily for Medical 4 days. Branch predniSONE No [id number] 30mg Take 3 Univers 10 mg 03-17 tablets by ity of tablet 00:00: 04:59 mouth [place] 00 :00 daily for Medical 4 days. Branch predniSONE No [id number] 30mg Take 3 Univers 10 mg 03-17 tablets by ity of tablet 00:00: 04:59 mouth [place] 00 :00 daily for Medical 4 days. Branch predniSONE No [id number] 30mg Take 3 Univers 10 mg 03-17 tablets by ity of tablet 00:00: 04:59 mouth [place] 00 :00 daily for Medical 4 days. Branch albuterol No [id number] 4{puff} 4 Puff, Univers (VENTOLIN) 03-15 Inhalation it y of inhaler 4 01:45: 00:44 , ONCE, 1 [place] Puff 00 :00 dose, [facility] Medical 03/14/21 at Branch 5, Routine dexamethaso 2020- No [id number] 10mg 10 mg, Univers ne 03-15 Intramuscu ity of (DECADRON) 01:45: 00:45 lar, ONCE, [place] injection 00 :00 1 dose, Medical 10 mg Arp[facility] [place] 03/14/21 at 2045, Routine albuterol Yes [id number] 2.5mg Inhale 3 Univers 2.5 mg /3 8-27 mL every 4 ity of mL (0.083 00:00: (four) [place] %) 00 hours as Medical nebulizer needed for Bran ch solution Wheezing or Shortness of Breath. albuterol Yes [id number] 2.5mg Inhale 3 Univers 2.5 mg /3 8-27 mL every 4 ity of mL (0.083 00:00: (four) [place] %) 00 hours as Medical nebulizer needed for Bran ch solution Wheezing or Shortness of Breath. albuterol Yes [id number] 2.5mg Inhale 3 Univers 2.5 mg /3 8-27 mL every 4 ity of mL (0.083 00:00: (four) [place] %) 00 hours as Medical nebulizer needed for Bran ch solution Wheezing or Shortness of Breath. albuterol Yes [id number] 2.5mg Inhale 3 Univers 2.5 mg /3 8-27 mL every 4 ity of mL (0.083 00:00: (four) [place] %) 00 hours as Medical nebulizer needed for Bran ch solution Wheezing or Shortness of Breath. albuterol Yes [id number] 2.5mg Inhale 3 Univers 2.5 mg /3 8-27 mL every 4 ity of mL (0.083 00:00: (four) [place] %) 00 hours as Medical nebulizer needed for Bran ch solution Wheezing or Shortness of Breath. albuterol Yes [id number] 2.5mg Inhale 3 Univers 2.5 mg /3 8-27 mL every 4 ity of mL (0.083 00:00: ([facility] [place] %) 00 hours as Medical nebulizer needed for Bran ch solution Wheezing or Shortness of Breath. albuterol 2020-0 Yes [id number] 2.5mg Inhale 3 Univers 2.5 mg /3 8-27 mL every 4 ity of mL (0.083 00:00: ([facility] [place] %) 00 hours as Medical nebulizer needed for Bran ch solution Wheezing or Shortness of Breath. albuterol 2020-0 Yes [id number] 2.5mg Inhale 3 Univers 2.5 mg /3 8-27 mL every 4 ity of mL (0.083 00:00: ([facility] [place] %) 00 hours as Medical nebulizer needed for Bran ch solution Wheezing or Shortness of Breath. albuterol 2020-0 Yes [id number] 2.5mg Inhale 3 Univers 2.5 mg /3 8-27 mL every 4 ity of mL (0.083 00:00: ([facility] [place] %) 00 hours as Medical nebulizer needed for Bran ch solution Wheezing or Shortness of Breath. albuterol 2020-0 Yes [id number] 2.5mg Inhale 3 Univers 2.5 mg /3 8-27 mL every 4 ity of mL (0.083 00:00: (four) [place] %) 00 hours as Medical nebulizer needed for Bran ch solution Wheezing or Shortness of Breath. albuterol 2020-0 Yes [id number] 2.5mg Inhale 3 Univers 2.5 mg /3 8-27 mL every 4 ity of mL (0.083 00:00: (four) [place] %) 00 hours as Medical nebulizer needed for Bran ch solution Wheezing or Shortness of Breath. albuterol 2020-0 Yes [id number] 2.5mg Inhale 3 Univers 2.5 mg /3 8-27 mL every 4 ity of mL (0.083 00:00: (four) [place] %) 00 hours as Medical nebulizer needed for Bran ch solution Wheezing or Shortness of Breath. albuterol 2020-0 Yes [id number] 2.5mg Inhale 3 Univers 2.5 mg /3 8-27 mL every 4 ity of mL (0.083 00:00: (four) [place] %) 00 hours as Medical nebulizer needed for Bran ch solution Wheezing or Shortness of Breath. albuterol 2020-0 Yes [id number] 2.5mg Inhale 3 Univers 2.5 mg /3 8-27 mL every 4 ity of mL (0.083 00:00: (four) [place] %) 00 hours as Medical nebulizer needed for Bran ch solution Wheezing or Shortness of Breath. albuterol 2020-0 Yes [id number] 2.5mg Inhale 3 Univers 2.5 mg /3 8-27 mL every 4 ity of mL (0.083 00:00: (four) [place] %) 00 hours as Medical nebulizer needed for Bran ch solution Wheezing or Shortness of Breath. albuterol 2020-0 Yes [id number] 2.5mg Inhale 3 Univers 2.5 mg /3 [...] (KEPPRA 8-03 mouth. ity of ORAL) 19:45: [address] Branch levetiracet 0 Yes Take by Uni vers am (KEPPRA 8-03 mouth. ity of ORAL) 19:45: [address] Branch levetiracet 2020-0 Yes Take by Uni vers am (KEPPRA 8-03 mouth. ity of ORAL) 19:45: [address] Branch levetiracet 2020-0 Yes Take by Uni vers am (KEPPRA 8-03 mouth. ity of ORAL) 19:45: [address] levetiracet 2020-0 Yes Take by Uni vers am (KEPPRA 02-19 mouth. ity of ORAL) 19:45: [address] levetiracet Yes Take by Uni vers am (KEPPRA 02-19 mouth. ity of ORAL) 19:45: [address] LISINOPRIL- 2020- No Take by Un lois HYDROCHLORO 02-19 mouth. ity o f THIAZIDE 19:41: 00:00 [place] ORAL 15 :00 [facility] Branch dicyclomine 2020- No 20mg [...] Tue Medica l NaCl 0.9% 02/19/21 at [facility] h (NS) 50 mL [...] at Branch 1200, MICHAEL iopamidol 2020- No [id number] 100mL 100 mL, Univers (ISOVUE 8 08-03 Intravenou ity o f 370-500 mL) 16:35: 16:45 s, ONCE, 1 [place] injection 00 :00 dose, Tue Medic al 100 mL 02/19/21 at Branch 1145, Routine levetiracet 0 Yes Take by Uni vers am (KEPPRA 8-03 mouth. ity of ORAL) 14:45: [address] levetiracet 2020-0 Yes Take by Uni vers am (KEPPRA 8-03 mouth. ity of ORAL) 14:45: [address] levetiracet 2020-0 Yes Take by Uni vers am (KEPPRA 8-03 mouth. ity of ORAL) 14:45: [address] levetiracet 2020-0 Yes Take by Uni vers am (KEPPRA 8-03 mouth. ity of ORAL) 14:45: [address] levetiracet 0 Yes Take by Uni vers am (KEPPRA 8-03 mouth. ity of ORAL) 14:45: [address] proMETHazin 2020-0 Yes [id number] 25mg Take 1 Univers e 25 mg 8-03 tablet by ity of tablet 00:00: mouth [place] 00 every 6 Medical (six) Branch hours as needed for Nausea and Vomiting (N/V). dicyclomine 2020-0 Yes [id number] 20mg Take 1 Univers 20 mg 8-03 tablet by ity of tablet 00:00: mouth 00 (four) Medical times Branch daily as needed for Abdominal pain. proMETHazin 2020-0 Yes [id number] 25mg Take 1 Univers e 25 mg 8-03 tablet by ity of tablet 00:00: mouth [place] 00 every 6 Medical (six) Branch hours as needed for Nausea and Vomiting (N/V). dicyclomine 2020-0 Yes [id number] 20mg Take 1 Univers 20 mg 8-03 tablet by ity of tablet 00:00: mouth 4 00 (four) Medical times Branch daily as needed for Abdominal pain. proMETHazin 2020-0 Yes [id number] 25mg Take 1 Univers e 25 mg 8-03 tablet by ity of tablet 00:00: mouth [place] 00 every 6 Medical (six) Branch hours as needed for Nausea and Vomiting (N/V). dicyclomine 1-0 Yes [id number] 20mg Take 1 Univers 20 mg 8-03 tablet by ity of tablet 00:00: mouth 4 (four) Medical times Branch daily as needed for Abdominal pain. proMETHazin 2020-0 Yes [id number] 25mg Take 1 Univers e 25 mg 8-03 tablet by ity of tablet 00:00: mouth [place] 00 every 6 Medical (six) Branch hours as needed for Nausea and Vomiting (N/V). dicyclomine 2020-0 Yes [id number] 20mg Take 1 Univers 20 mg 8-03 tablet by ity of tablet 00:00: mouth (four) Medical times Branch daily as needed for Abdominal pain. proMETHazin 2020-0 Yes [id number] 25mg Take 1 Univers e 25 mg 8-03 tablet by ity of tablet 00:00: mouth 00 every 6 Medical (six) Branch hours as needed for Nausea and Vomiting (N/V). dicyclomine 2020-0 Yes [id number] 20mg Take 1 Univers 20 mg 8-03 tablet by ity of tablet 00:00: mouth (four) Medical times Branch daily as needed for Abdominal pain. proMETHazin 2020-0 Yes [id number] 25mg Take 1 Univers e 25 mg 8-03 tablet by ity of tablet 00:00: mouth [place] 00 every 6 Medical (six) Branch hours as needed for Nausea and Vomiting (N/V). dicyclomine 2020-0 Yes [id number] 20mg Take 1 Univers 20 mg 8-03 tablet by ity of tablet 00:00: mouth (four) Medical times Branch daily as needed for Abdominal pain. proMETHazin 202-0 Yes [id number] 25mg Take 1 Univers e 25 mg 8-03 tablet by ity of tablet 00:00: mouth [place] 00 every 6 Medical (six) Branch hours as needed for Nausea and Vomiting (N/V). dicyclomine 2021-0 Yes [id number] 20mg Take 1 Univers 20 mg 8-03 tablet by ity of tablet 00:00: mouth (four) Medical times Branch daily as needed for Abdominal pain. proMETHazin 2020-0 Yes [id number] 25mg Take 1 Univers e 25 mg 8-03 tablet by ity of tablet 00:00: mouth [place] 00 every 6 Medical (six) Branch hours as needed for Nausea and Vomiting (N/V). dicyclomine 2020-0 Yes [id number] 20mg Take 1 Univers 20 mg 8-03 tablet by ity of tablet 00:00: mouth 4 [place] 00 (four) Medical times Branch daily as needed for Abdominal pain. proMETHazin 2020-0 Yes [id number] 25mg Take 1 Univers e 25 mg 8-03 tablet by ity of tablet 00:00: mouth [place] 00 every 6 Medical (six) Branch hours as needed for Nausea and Vomiting (N/V). dicyclomine 2020-0 Yes [id number] 20mg Take 1 Univers 20 mg 8-03 tablet by ity of tablet 00:00: mouth 4 [place] 00 (four) Medical times Branch daily as needed for Abdominal pain. proMETHazin 2020-0 Yes [id number] 25mg Take 1 Univers e 25 mg 8-03 tablet by ity of tablet 00:00: mouth [place] 00 every 6 Medical (six) Branch hours as needed for Nausea and Vomiting (N/V). dicyclomine 2020-0 Yes [id number] 20mg Take 1 Univers 20 mg 8-03 tablet by ity of tablet 00:00: mouth 4 [place] 00 (four) Medical times Branch daily as needed for Abdominal pain. proMETHazin 2020-0 Yes [id number] 25mg Take 1 Univers e 25 mg 8-03 tablet by ity of tablet 00:00: mouth [place] 00 every 6 Medical (six) Branch hours as needed for Nausea and Vomiting (N/V). dicyclomine 2020-0 Yes [id number] 20mg Take 1 Univers 20 mg 8-03 tablet by ity of tablet 00:00: mouth 4 [place] 00 (four) Medical times Branch daily as needed for Abdominal pain. proMETHazin 2020-0 Yes [id number] 25mg Take 1 Univers e 25 mg 8-03 tablet by ity of tablet 00:00: mouth [place] 00 every 6 Medical (six) Branch hours as needed for Nausea and Vomiting (N/V). dicyclomine 2020-0 Yes [id number] 20mg Take 1 Univers 20 mg 8-03 tablet by ity of tablet 00:00: mouth 4 (four) Medical times Branch daily as needed for Abdominal pain. proMETHazin 2020-0 Yes [id number] 25mg Take 1 Univers e 25 mg 8-03 tablet by ity of tablet 00:00: mouth [place] 00 every 6 Medical (six) Branch hours as needed for Nausea and Vomiting (N/V). dicyclomine 2020-0 Yes [id number] 20mg Take 1 Univers 20 mg 8-03 tablet by ity of tablet 00:00: mouth 00 (four) Medical times Branch daily as needed for Abdominal pain. proMETHazin 2020-0 Yes [id number] 25mg Take 1 Univers e 25 mg 8-03 tablet by ity of tablet 00:00: mouth [place] 00 every 6 Medical (six) Branch hours as needed for Nausea and Vomiting (N/V). dicyclomine 2020-0 Yes [id number] 20mg Take 1 Univers 20 mg 8-03 tablet by ity of tablet 00:00: mouth (four) Medical times Branch daily as needed for Abdominal pain. proMETHazin 2020-0 Yes [id number] 25mg Take 1 Univers e 25 mg 8-03 tablet by ity of tablet 00:00: mouth [place] 00 every 6 Medical (six) Branch hours as needed for Nausea and Vomiting (N/V). dicyclomine 2020-0 Yes [id number] 20mg Take 1 Univers 20 mg 8-03 tablet by ity of tablet 00:00: mouth (four) Medical times Branch daily as needed for Abdominal pain. proMETHazin 2020-0 Yes [id number] 25mg Take 1 Univers e 25 mg 8-03 tablet by ity of tablet 00:00: mouth [place] 00 every 6 Medical (six) Branch hours as needed for Nausea and Vomiting (N/V). dicyclomine 2020-0 Yes [id number] 20mg Take 1 Univers 20 mg 8-03 tablet by ity of tablet 00:00: mouth 4 00 (four) Medical times Branch daily as needed for Abdominal pain. proMETHazin 2020-0 Yes [id number] 25mg Take 1 Univers e 25 mg 8-03 tablet by ity of tablet 00:00: mouth [place] 00 every 6 Medical (six) Branch hours as needed for Nausea and Vomiting (N/V). dicyclomine Yes [id number] 20mg Take 1 Univers 20 mg 8- [...] [place] 40 mg EC Medical tablet Branch LISINOPRIL- [...] 19:58: daily. [place] 14 Medical Branch loratadine 0 Yes Take by Univ ers (CLARITIN 7-24 mouth ity of LIQUI-GEL) 19:58: daily. [place] 10 mg 14 Medical capsule Branch MULTIVITAMI Yes 1{tbl} Take 1 Tab Univers N ORAL 7-24 by mouth ity of 19:58: daily. [place] [address] Medical Branch loratadine 0 Yes Take by Univ ers (CLARITIN 7-24 mouth ity of LIQUI-GEL) 19:58: daily. [place] 10 mg 14 Medical capsule Branch MULTIVITAMI Yes 1{tbl} Take 1 Tab Univers N ORAL 7-24 by mouth ity of 19:58: daily. [place] [address] Medical Branch loratadine Yes Take by Univ ers (CLARITIN 7-24 mouth ity of LIQUI-GEL) 19:58: daily. [place] 10 mg 14 Medical capsule Branch MULTIVITAMI Yes 1{tbl} Take 1 Tab Univers N ORAL 7-24 by mouth ity of 19:58: daily. [place] [address] Medical Branch loratadine 0 Yes Take by Univ ers (CLARITIN 7-24 mouth ity of LIQUI-GEL) 19:58: daily. [place] 10 mg 14 Medical capsule Branch MULTIVITAMI Yes 1{tbl} Take 1 Tab Univers N ORAL 7-24 by mouth ity of 19:58: daily. [place] [address] Medical Branch loratadine Yes Take by Univ ers (CLARITIN 7-24 mouth ity of LIQUI-GEL) 19:58: daily. [place] 10 mg 14 Medical capsule Branch MULTIVITAMI Yes 1{tbl} Take 1 Tab Univers N ORAL 7-24 by mouth ity of 19:58: daily. [place] [address] Medical Branch loratadine 0 Yes Take by Univ ers (CLARITIN 7-24 mouth ity of LIQUI-GEL) 19:58: daily. [place] 10 mg 14 Medical capsule Branch MULTIVITAMI Yes 1{tbl} Take 1 Tab Univers N ORAL 7-24 by mouth ity of 19:58: daily. [place] [address] Medical Branch loratadine 0 Yes Take by Univ ers (CLARITIN 7-24 mouth ity of LIQUI-GEL) 19:58: daily. [place] 10 mg 14 Medical capsule Branch ondansetron 2018-0 Yes 4mg Take 4 mg U nivers (ZOFRAN) 4 7-24 by mouth ity o f mg tablet 15:05: every 8 [place] (eight) Medical hours as Branch needed. pantoprazol 2018-0 Yes 40mg Take 40 mg Univers e 7-24 by mouth ity of (PROTONIX) 15:05: daily. [place] 40 mg EC 01 Medical tablet Branch ondansetron 2018-0 Yes 4mg Take 4 mg U nivers (ZOFRAN) 4 7-24 by mouth ity o f mg tablet 15:05: every 8 [place] [address] (eight) Medical hours as Branch needed. pantoprazol 2018-0 Yes 40mg Take 40 mg Univers e 7-24 by mouth ity of (PROTONIX) 15:05: daily. [place] 40 mg EC 01 Medical tablet Branch ondansetron 2018-0 Yes 4mg Take 4 mg U nivers (ZOFRAN) 4 7-24 by mouth ity o f mg tablet 15:05: every 8 [place] [address] (eight) Medical hours as Branch needed. pantoprazol 2018-0 Yes 40mg Take 40 mg Univers e 7-24 by mouth ity of (PROTONIX) 15:05: daily. [place] 40 mg EC 01 Medical tablet Branch ondansetron 2018-0 Yes 4mg Take 4 mg U nivers (ZOFRAN) 4 7-24 by mouth ity o f mg tablet 15:05: every 8 [place] [address] (eight) Medical hours as Branch needed. pantoprazol 2018-0 Yes 40mg Take 40 mg Univers e 7-24 by mouth ity of (PROTONIX) 15:05: daily. [place] 40 mg EC 01 Medical tablet Branch ondansetron 2018-0 Yes 4mg Take 4 mg U nivers (ZOFRAN) 4 7-24 by mouth ity o f mg tablet 15:05: every 8 [place] [address] (eight) Medical hours as Branch needed. pantoprazol 2018-0 Yes 40mg Take 40 mg Univers e 7-24 by mouth ity of (PROTONIX) 15:05: daily. [place] 40 mg EC 01 Medical tablet Branch [...] 7-24 by mouth ity of 14:58: daily. [place] [address] Medical Branch loratadine Yes Take by [facility] ers (CLARITIN 7-24 mouth ity of LIQUI-GEL) 14:58: daily. [place] 10 mg 14 Medical capsule Branch MULTIVITAMI Yes 1{tbl} Take 1 Tab Univers N ORAL 7-24 by mouth ity of 14:58: daily. [place] [address] Medical Branch loratadine Yes Take by [facility] ers (CLARITIN 7-24 mouth ity of LIQUI-GEL) 14:58: daily. [place] 10 mg 14 Medical capsule Branch MULTIVITAMI Yes 1{tbl} Take 1 Tab Univers N ORAL 7-24 by mouth ity of 14:58: daily. [place] [address] Medical Branch loratadine Yes Take by [facility] ers (CLARITIN 7-24 mouth ity of LIQUI-GEL) 14:58: daily. [place] 10 mg 14 Medical capsule Branch MULTIVITAMI Yes 1{tbl} Take 1 Tab Univers N ORAL 7-24 by mouth ity of 14:58: daily. [place] [address] Medical Branch loratadine Yes Take by [facility] ers (CLARITIN 7-24 mouth ity of LIQUI-GEL) 14:58: daily. [place] 10 mg 14 Medical capsule Branch MULTIVITAMI Yes 1{tbl} Take 1 Tab Univers N ORAL 7-24 by mouth ity of 14:58: daily. [place] [address] Medical Branch loratadine Yes Take by [facility] ers (CLARITIN 7-24 mouth ity of [...] Immunizations Ordered Filled Immunization Date Status Comments [facility] e Immunization Name Name SARS-COV-2 COVID-19 [...] Unive rsity of PFIZER VACCINE 00:00:00 [place] [facility] Branch SARS-COV-2 COVID-19 2021-05-24 Completed Unive rsity of PFIZER VACCINE 00:00:00 [place] [facility] Branch SARS-COV-2 COVID-19 2021-05-24 Completed Unive rsity of PFIZER VACCINE 00:00:00 [place] [facility] Branch SARS-COV-2 COVID-19 2021-05-24 Completed Unive rsity of PFIZER VACCINE 00:00:00 [facility] Branch SARS-COV-2 COVID-19 2021-05-24 Completed Unive rsity of PFIZER VACCINE 00:00:00 [place] [facility] Branch SARS-COV-2 COVID-19 2021-05-24 Completed Unive rsity of PFIZER VACCINE 00:00:00 [place] [facility] Branch SARS-COV-2 COVID-19 2021-05-24 Completed Unive rsity of PFIZER VACCINE 00:00:00 [place] [facility] Branch SARS-COV-2 COVID-19 2021-05-24 Completed Unive rsity of PFIZER VACCINE 00:00:00 [facility] Branch SARS-COV-2 COVID-19 2021-05-24 Completed Unive rsity of PFIZER VACCINE 00:00:00 [facility] Branch SARS-COV-2 COVID-19 2021-05-03 Completed Unive rsity of PFIZER VACCINE 00:00:00 [facility] SARS-COV-2 COVID-19 2021-05-03 Completed Unive rsity of PFIZER VACCINE 00:00:00 [facility] SARS-COV-2 COVID-19 2021-05-03 Completed Unive rsity of PFIZER VACCINE 00:00:00 [facility] SARS-COV-2 COVID-19 2021-05-03 Completed Unive rsity of PFIZER VACCINE 00:00:00 [facility] SARS-COV-2 COVID-19 2021-05-03 Completed Unive rsity of PFIZER VACCINE 00:00:00 [facility] SARS-COV-2 COVID-19 2021-05-03 Completed Unive rsity of PFIZER VACCINE 00:00:00 [facility] SARS-COV-2 COVID-19 2021-05-03 Completed Unive rsity of PFIZER VACCINE 00:00:00 [facility] SARS-COV-2 COVID-19 2021-05-03 Completed Unive rsity of PFIZER VACCINE 00:00:00 [facility] SARS-COV-2 COVID-19 2021-05-03 Completed Unive rsity of PFIZER VACCINE 00:00:00 [facility] SARS-COV-2 COVID-19 2021-05-03 Completed Unive rsity of PFIZER VACCINE 00:00:00 [facility] Vital Signs Vital Name Observation Time Observation Value Comments Source Heart rate 2022-08-02 02:02:00 108 /min [facility] Respiratory rate 2022-08-02 02:02:00 28 /min Univ ersity of [facility] Oxygen saturation in 2022-08-02 02:02:00 97 /min [facility] Arterial blood by [facility] Pulse oximetry [place] Body temperature 2022-08-02 01:00:00 36.44 Radha Univ ersity [facility] Systolic blood 2022-08-01 23:29:00 145 mm[Hg] Univer sity of pressure [facility] Diastolic blood 2022-08-01 23:29:00 103 mm[Hg] Unive rsity of pressure [facility] Body weight 2022-08-01 09:16:00 97.977 kg [facility] BMI 2022-08-01 09:16:00 38.26 kg/m2 [facility] [place] [facility] Body height 2022-07-31 21:54:00 160 cm [facility] [place] [facility] Systolic blood 2022-05-08 16:40:00 146 mm[Hg] Univer sity of pressure [place] [facility] Diastolic blood 2022-05-08 16:40:00 96 mm[Hg] Unive rsity of pressure [place] [facility] Heart rate 2022-05-08 16:40:00 112 /min [facility] [place] [facility] Body temperature 2022-05-08 16:40:00 36.78 Radha [facility] [place] [facility] Respiratory rate 2022-05-08 16:40:00 18 /min [facility] [place] [facility] Oxygen saturation in 2022-05-08 16:40:00 94 /min University of Arterial blood by [facility] Pulse oximetry Branch Body height 2022-05-05 23:44:00 160 cm [facility] [place] [facility] Body weight 2022-05-05 23:37:00 81.647 kg [facility] [place] [facility] BMI 2022-05-05 23:37:00 31.89 kg/m2 [facility] [place] [facility] Systolic blood 2022-04-15 18:52:00 104 mm[Hg] Univer sity of pressure [place] [facility] Diastolic blood 2022-04-15 18:52:00 82 mm[Hg] Unive rsity of pressure [place] [facility] Heart rate 2022-04-15 18:52:00 114 /min [facility] [place] [facility] Oxygen saturation in 2022-04-15 18:52:00 98 /min [facility] of Arterial blood by [facility] Pulse oximetry Branch Body temperature 2022-04-15 16:14:00 36.28 Radha [facility] Respiratory rate 2022-04-15 16:14:00 17 /min [facility] Body height 2022-04-13 21:08:00 160 cm [facility] Body weight 2022-04-13 21:08:00 91.173 kg [facility] BMI 2022-04-13 21:08:00 35.61 kg/m2 [facility] Systolic blood 2021-11-23 21:30:00 132 mm[Hg] Univer [facility] Diastolic blood 2021-11-23 21:30:00 76 mm[Hg] Unive rsity [facility] Heart rate 2021-11-23 21:30:00 95 /min [facility] Respiratory rate 2021-11-23 21:30:00 13 /min [facility] Oxygen saturation in 2021-11-23 21:30:00 97 /min [facility] Arterial blood by [place] [email or web address] Pulse oximetry Branch Body temperature 2021-11-23 20:15:00 37.56 Radha [facility] Systolic blood 2021-03-17 03:00:00 117 mm[Hg] [facility] Diastolic blood 2021-03-17 03:00:00 76 mm[Hg] Unive rsity [facility] Heart rate 2021-03-17 03:00:00 104 /min [facility] Respiratory rate 2021-03-17 03:00:00 28 /min [facility] Oxygen saturation in 2021-03-17 03:00:00 96 /min [facility]ial blood by [email or web address] Pulse oximetry Branch Body temperature 2021-03-17 [...] 2021-03-15 00:14:00 37.33 Radha [facility] Respiratory rate [...] Arterial blood by [facility] Pulse oximetry Branch Systolic blood 2021-02-19 18:00:00 131 mm[Hg] [facility] Diastolic blood 2021-02-19 18:00:00 80 mm[Hg] Unive rsity of [facility] Heart rate 2021-02-19 18:00:00 83 /min Universi ty of [facility] Respiratory rate 2021-02-19 18:00:00 18 /min [facility] Oxygen saturation in 2021-02-19 18:00:00 100 /min [facility] of Arterial blood by [facility] Pulse oximetry Branch Body temperature 2021-02-19 15:47:00 37 Radha [facility] Body height 2021-02-19 15:47:00 160 cm [facility] Body weight 2021-02-19 15:47:00 58.968 kg Universi ty [facility] BMI 2021-02-19 15:47:00 23.03 kg/m2 [facility]i [facility] Respiratory rate 2022-08-03 14:40:00 18 /min [facility] Systolic blood 2022-08-03 12:13:00 112 mm[Hg] [facility] Diastolic blood 2022-08-03 12:13:00 77 mm[Hg] [facility] Heart rate 2022-08-03 12:13:00 115 /min [facility] Oxygen saturation in 2022-08-03 12:13:00 93 /min [facility] Arterial blood by Medical nter Pulse oximetry Body temperature 2022-08-03 12:00:00 36.83 Radha [facility] Body height 2022-08-02 21:52:00 160.2 cm [facility] Body weight 2022-08-02 21:52:00 95 kg [facility] BMI 2022-08-02 21:52:00 37.02 kg/m2 [facility] BP Systolic 2022-07-24 13:31:00 136 [...] Unknown, Hl[facility] 05:03[facility] ECG 12-LEAD 2022-08-03 Unknown, Hl[facility] 05:03:32 [facility] ECG 12-LEAD 2022-08-03 Unknown, Hl7 [facility] 05:03:32 [facility] LIPID PANEL 2022-08-[address] [facility] 21:14:00 [facility] TSH/FREE T4 IF INDICATED 2022-08-02 Donaldo Hightower [facility] 21:14:00 [facility] VITAMIN B12 2022-08-[address] [facility] 21:14:00 [facility] HEMOGLOBIN A1C 2022-08-[address] [facility] 21:14:00 [facility] COMPREHENSIVE METABOLIC PANEL 2022-08-02 Donaldo Hightower [facility] 21:14:00 [facility] CBC W/PLT COUNT & AUTO 2022-08-02 Donaldo Hightower [facility] DIFFERENTIAL 21:14:00 [facility] RPR 2022-08-[address] [facility] 21:14:00 [facility] HC LAB HIV-1 AG W/HIV-1&2 AB 2022-08-02 Donaldo Hightower [facility] 21:14:00 [facility] C-REACTIVE PROTEIN 2022-08-[address] [facility] 21:14:00 [facility] CBC W/PLT COUNT & AUTO 2022-08-02 Donaldo Hightower [facility] DIFFERENTIAL 21:14:00 [facility] EKG-SCANNED 2022-08-[address] [facility] 00:00:[address] [facility] [address] HEAD WO CONTRAST 2022-08-01 Lorenza Her o f 23:52:15 [facility] GALV ONLY - INFLUENZA A B RSV 2022-08-01 LindseyLetitia hudson Un iversity of PCR 18:28:00 [facility] TRANSTHORACIC ECHO (TTE) 2022-08-01 [facility] COMPLETE W/ CONTRAST 14:42:00 [facility] Branch MAGNESIUM 2022-08-01 Lorenza Her [place] of 10:42:00 [facility] BASIC METABOLIC PANEL (NA, K, 2022-08-01 Lorenza Her Un iversity of CL, CO2, GLUCOSE, BUN, 10:42:00 [facility] ical CREATININE, CA) Branch CBC WITH DIFF 2022-08-01 Lorenza Her [place] of 10:42:00 [facility] N-TERMINAL PRO-BNP 2022-08-01 T[facility] of 10:42:00 [facility] POCT GLUCOSE (AUTOMATED) 2022-08-[address] [facility] [place] ity of 06:56:00 [facility] CRITICAL CARE 2022-07-31 Sav Rondon [place] of 22:31:36 [facility] URINALYSIS 2022-07-31 Sav Rondon [place] of 20:52:00 [facility] URINE DRUG (IMMUNOASSAY) - 2022-07-31 [facility] COMPREHENSIVE DRUG SCREEN W/O [place] [facility] REFLEX Branch XR CHEST 1 VW 2022-07-31 Sav Rondon of 18:45:17 [facility] LIPASE 2022-07-31 Sav Rondon [place] of 17:58:00 [facility] TROPONIN I 2022-07-31 Sav Rondon [place] of 17:58:00 [facility] COMP. METABOLIC PANEL ([id number]) 2022-07-31 Sav Rondon iversity of 17:58:00 [facility] CBC WITH DIFF 2022-07-31 Sav Rondon of 17:58:00 [facility] PROTHROMBIN TIME / INR 2022-07-31 Sav Rondonit y of 17:58:00 [facility] ACTIVATED PARTIAL THRMPLAS 2022-07-31 Rondon, Sav Unive rsity of DAVID 17:58:00 [facility] N-TERMINAL PRO-BNP 2022-07-31 Sav Rondon Mora of 17:58:00 [facility] HB ECG ROUTINE & RHYTHM STRIP 2022-07-31 Sav Rondon Un iversity of 17:46:28 [facility] NOTICE OF PRIVACY PRACTICES 2022-07-31 Doctor Unassigned, U niversity of 17:35:38 [place] [facility] CONSENT/REFUSAL FOR DIAGNOSIS 2022-07-31 Doctor Unassigned, University of AND TREATMENT 17:35:13 [place] [facility] PHOSPHORUS 2022-05-08 Shefali [facility] of 05:51:00 [facility] MAGNESIUM 2022-05-08 YvesTirado, [facility] of 05:51:00 [facility] BASIC METABOLIC PANEL (NA, K, 2022-05-08 Shefali, [place] U niversity of CL, CO2, GLUCOSE, BUN, 05:51:00 [place] [facility] CREATININE, [place]) Branch CBC WITH DIFF 2022-05-08 Shefali [facility] of 05:51:00 [facility] BASIC METABOLIC PANEL (NA, K, 2022-05-07 [facility] of CL, CO2, GLUCOSE, BUN, 07:09:00 Shailesh [place] [facility] CREATININE, [place]) Branch CBC WITH DIFF 2022-05-07 [facility] of 07:09:00 [facility] POCT GLUCOSE (AUTOMATED) 2022-05-07 Brandyn Mcfarlane of 01:16:00 [facility] HB ABO GROUPING 2022-05-06 Shaun [facility] of 05:07:00 [facility] BASIC METABOLIC PANEL (NA, K, 2022-05-06 Shefali, Azeem U niversity of CL, CO2, GLUCOSE, BUN, 05:04:00 [place] [facility] CREATININE, CA) Branch CBC WITH DIFF 2022-05-06 Shefali [facility] of 05:04:00 [facility] KEPPRA (LEVETIRACETAM) 2022-05-06 [facility] 05:04:00 [facility] MR LUMBAR SPINE WO CONTRAST 2022-05-06 Ender Monet U niversity of 02:54:37 Suhas [facility] ELECTROENCEPHALOGRAM 2022-05-06 Abdulaziz John Naa ty of 00:00:00 Shailesh [facility] BASIC METABOLIC PANEL (NA, K, 2022-05-05 [facility] of CL, CO2, GLUCOSE, BUN, 07:57:00 [facility] ical CREATININE, CA) Branch CBC WITH DIFF 2022-05-05 [facility] of 07:57:00 [facility] PROTHROMBIN TIME / INR 2022-05-05 [facility] ersity of 07:57:00 [facility] ACTIVATED PARTIAL THRMPLAS 2022-05-05 [facility] of DAVID 07:57:00 [facility] FIBRINOGEN 2022-05-05 [facility] of 07:57:00 [facility] EMERGENCY SERVICES AGREEMENTS 2022-05-04 Doctor Unassigned, University of AND AUTHORIZATIONS 05:01:00 [place] [facility] VITAMIN D, 25-OH 2022-04-15 Sen [place] Mora of 16:53:00 [facility] MR THORACIC SPINE WO CONTRAST 2022-04-15 Soumya Chua Un iversity of 11:56:19 [facility] MR CERVICAL SPINE WO CONTRAST 2022-04-15 Soumya Chua Un iversity of 11:20:00 [facility] BASIC METABOLIC PANEL (NA, K, 2022-04-15 Charmaine Morataya Un iversity of CL, CO2, GLUCOSE, BUN, 10:36:00 [facility] ical CREATININE, CA) Branch TEST, URINE 2022-04-15 [facility] of 04:39:00 [facility] URINE DRUG (IMMUNOASSAY) - 2022-04-15 [facility] rsity of COMPREHENSIVE DRUG SCREEN 04:39:00 [facility] URINALYSIS 2022-04-15 [facility] 04:39:00 [facility] TRANSTHORACIC ECHO (TTE) 2022-04-14 [facility] ity of COMPLETE W/ CONTRAST 16:37:03 [facility] KEPPRA (LEVETIRACETAM) 2022-04-14 [facility] y of 15:30:00 [facility] MAGNESIUM 2022-04-14 [facility] of 10:03:00 [facility] BASIC METABOLIC PANEL (NA, K, 2022-04-14 [facility] iversity of CL, CO2, GLUCOSE, BUN, 10:03:00 [place] [facility] CREATININE, [place]) Branch MR LUMBAR SPINE WO CONTRAST 2022-04-14 [facility] ersity of 02:48:12 [facility] MR STROKE BRAIN WO CONTRAST 2022-04-14 [facility] ersity of 02:29:[address] [facility] [address] STROKE ANGIOGRAM HEAD 2022-04-13 Sapna Vargas [facility] ersity of 18:40:[address] [facility] [address] STROKE ANGIOGRAM NECK 2022-04-13 Sapna Vargas [facility] ersity of 18:40:[address] [facility] [address] STROKE HEAD WO CONTRAST 2022-04-13 Sapna Vargas iversity of 18:36:00 [facility] TROPONIN I 2022-04-13 Sapna Vargas [place] of 18:17:00 [facility] THYROID STIMULATING HORMONE 2022-04-13 [facility] ersity of 18:17:00 [facility] BASIC METABOLIC PANEL (NA, K, 2022-04-13 Sapna Vargas [place] of CL, CO2, GLUCOSE, BUN, 18:17:00 [place] [facility] CREATININE, [place]) Branch LIPID PANEL ([id number])(TOTAL 2022-04-13 [facility] of CHOLESTEROL, TRIGLYCERIDES, 18:17:00 [facility] HDL) Branch CBC WITHOUT DIFF 2022-04-13 Sapna Vargas Mor[place] o f 18:17:00 [facility] GLYCOSYLATED HEMOGLOBIN (A1C) 2022-04-13 Soumya Chua Un iversity of 18:17:00 [facility] PROTHROMBIN TIME / INR 2022-04-13 Sapna Vargas [facility] sity of 18:17:00 [facility] ACTIVATED PARTIAL THRMPLAS 2022-04-13 Sapna Vargas iversity of DAVID 18:17:00 [facility] COVID-19 (ID NOW RAPID 2022-04-13 Sapna Vargas [facility] sity of TESTING) 18:17:00 [facility] LAB ONLY COVID INTERPRETATION 2022-04-13 Sapna Vargas [facility] 18:17:00 [facility] HB ECG ROUTINE & RHYTHM STRIP 2022-04-13 Sapna Vargas [facility] 18:15:49 [facility] CONSENT/REFUSAL FOR DIAGNOSIS 2022-04-13 Doctor Unassigned, [facility] AND TREATMENT 18:05:14 [place] [facility] HOSPITAL ADMISSION 2022-04-13 Doctor Unassigned, [facility] 05:01:00 [place] [facility] SARS-COV-2 COVID-19 VACCINE 2022-02-19 Doctor Unassigned, U niversity of 12 YRS+,0.3ML,IM (PFIZER - 15:21:12 [place] [facility] URINE DRUG (IMMUNOASSAY) - 2021-11-23 Nichelle Allison U niversity of COMPREHENSIVE DRUG SCREEN W/O [place]:21[place] [facility] CT HEAD WO CONTRAST 2021-11-23 Nichelle Allison [facility] ty of 20:58:00 [facility] POCT TEST 2021-11-23 [facility] ty of 20:46:00 [facility] URINALYSIS 2021-11-23 [facility] o f 20:43:00 [facility] LIPASE 2021-11-23 [facility] f 20:27:00 [facility] TROPONIN I 2021-11-23 [facility] o f 20:27:00 [facility] COMP. METABOLIC PANEL ([id number]) 2021-11-23 Juan [facility] of 20:27:00 [facility] CBC WITH DIFF 2021-11-23 [facility] o f 20:27:00 [facility] POCT GLUCOSE (AUTOMATED) 2021-11-23 Doctor Joe, [facility] ersity of 20:15:00 [place] [facility] SARS-COV-2 COVID-19 2021-05-24 Doctor Unassigned, Universit y of VACCINE,0.3ML,IM (PFIZER) 14:23:12 [place] [facility] SARS-COV-2 COVID-19 2021-05-03 Doctor Unassigned, [facility], [place] y of VACCINE,0.3ML,IM (PFIZER) 14:59:29 [place] [facility] EMERGENCY SERVICES AGREEMENTS 2021-04-16 Doctor Unassigned, Mora of AND AUTHORIZATIONS 05:01:00 [place] [facility] URINALYSIS 2021-03-17 [facility] of 03:09:00 [facility] XR CHEST 1 VW 2021-03-17 [facility] of 01:45:07 [facility] TROPONIN I 2021-03-17 [facility] of 01:35:00 [facility] COMP. METABOLIC PANEL ([id number]) 2021-03-17 Fabrice Chakraborty Un iversity of 01:35:00 [facility] CBC WITH DIFF 2021-03-17 [facility] of 01:35:00 [facility] N-TERMINAL PRO-BNP 2021-03-17 [facility] of 01:35:00 [facility] COVID-19 (ID NOW RAPID 2021-03-17 Singer [facility] y of TESTING) 00:58:00 [facility] CONSENT/REFUSAL FOR DIAGNOSIS 2021-03-17 Doctor Unassigned, [facility] AND TREATMENT 00:32:59 [place] [facility] COVID-19 (ID NOW RAPID 2021-02-19 Anali Patel [facility] y of TESTING) 17:04:[address] [facility] [address] ABDOMEN PELVIS W CONTRAST 2021-02-19 Anali Patel Uni versity of 16:41:18 [facility] LIPASE 2021-02-19 Anali Patel [place] of 15:58:00 [facility] COMP. METABOLIC PANEL (45945) 2021-02-19 Anali Patel Un iversity of 15:58:00 [facility] CBC WITH DIFF 2021-02-19 Anali Patel [place] of 15:58:00 [facility] URINALYSIS 2021-02-19 Anali Patel [place] of 15:58:00 [facility] NOTICE OF PRIVACY PRACTICES 2021-02-19 Doctor Unassjulee, U niversity of 15:30:46 [place] [facility] CONSENT/REFUSAL FOR DIAGNOSIS 2021-02-19 Doctor Unassigned, University of AND TREATMENT 15:30:30 [place] [facility] Plan of Care Planned Activity Planned Date Details Comments Source Future Scheduled 2025-08-02 Lipid panel (procedure) [facility] Test 00:00:00 [code = 52807626] Medical Ce nter Future Scheduled 2025-08-02 Lipid panel (procedure) [facility] Test 00:00:00 [code = 97834248] Medical Ce nter Future Scheduled 2025-08-02 Lipid panel (procedure) [facility] Test 00:00:00 [code = 00167160] Medical Ce nter Future Scheduled 2025-08-02 Lipid panel (procedure) [facility] Test 00:00:00 [code = 38006009] Medical Ce nter Future Scheduled 2022-07-20 DEPRESSION [...] cervix Medical C enter (procedure) [code = 812904050] Future Scheduled 1993-01-14 Screening for malignant [facility] Test 00:00:00 neoplasm of cervix Medical C enter (procedure) [code = 039085274] Future Scheduled 1993-01-14 Screening for malignant [facility] Test 00:00:00 neoplasm of cervix Medical C enter (procedure) [code = 550588996] Future Scheduled 1993-01-14 Screening for malignant [facility] Test 00:00:00 neoplasm of cervix Medical C enter (procedure) [code = 579450792] Future Scheduled 1991-01-14 DTAP/TDAP/TD VACCINES CH I [...] breast Medical C enter (procedure) [code = 070086050] Future Scheduled 1972 CT Colonography (combo) [facility] Test 00:00:00 [code = CT Colonography [facility] (combo)] Future Scheduled 1972 Screening for malignant [facility] Test 00:00:00 neoplasm of colon Medical Ce nter (procedure) [code = 863510674] Future Scheduled 1972 Screening for malignant [facility] Test 00:00:00 neoplasm of colon Medical Ce nter (procedure) [code = 553860247] Future Scheduled 1972 Screening for malignant [facility] Test 00:00:00 neoplasm of colon Medical Ce nter (procedure) [code = 092639405] Future Scheduled 1972 Screening for malignant [facility] Test 00:00:00 neoplasm of colon Medical Ce nter (procedure) [code = 764129730] Future Scheduled 1972 Sigmoidoscopy [code = [facility] Medical Cente r Future Scheduled 1972 Screening for malignant [facility] Test 00:00:00 neoplasm of breast Medical C enter (procedure) [code = 075528594] Future Scheduled 1972 CT Colonography (combo) [facility] Test 00:00:00 [code = CT Colonography [facility] (combo)] Future Scheduled 1972 Screening for malignant [facility] Test 00:00:00 neoplasm of colon Medical Ce nter (procedure) [code = 031527612] Future Scheduled 1972 Screening for malignant [facility] Test 00:00:00 neoplasm of colon Medical Ce nter (procedure) [code = 485829035] Future Scheduled 1972 Screening for malignant [facility] Test 00:00:00 neoplasm of colon Medical Ce nter (procedure) [code = 226364537] Future Scheduled 1972 Screening for malignant [facility] Test 00:00:00 neoplasm of colon Medical Ce nter (procedure) [code = 146793145] Future Scheduled 1972 Sigmoidoscopy [facility]code [facility]oscopy] Medical Cente r Future Scheduled 1972 Screening for malignant [facility] Test 00:00:00 neoplasm of breast Medical C enter (procedure) [code = 851831575] Future Scheduled 1972 CT Colonography (combo) [facility] Test 00:00:00 [code = CT Colonography [facility] (combo)] Future Scheduled 1972 Screening for malignant [facility] Test 00:00:00 neoplasm of colon Medical Ce nter (procedure) [code = 637215675] Future Scheduled 1972 Screening for malignant [facility] Test 00:00:00 neoplasm of colon Medical Ce nter (procedure) [code = 767544460] Future Scheduled 1972 Screening for malignant [facility] Test 00:00:00 neoplasm of colon Medical Ce nter (procedure) [code = 035228797] Future Scheduled 1972 Screening for malignant [facility] Test 00:00:00 neoplasm of colon Medical Ce nter (procedure) [code = 790394507] Future Scheduled 1972 Sigmoidoscopy [facility]code [facility]oscopy] Medical Cente r Future Scheduled 1972 Screening for malignant [facility] Test 00:00:00 neoplasm of breast Medical C enter (procedure) [code = 893903933] Future Scheduled 1972 CT Colonography (combo) [facility] Test 00:00:00 [code = CT Colonography [facility] (combo)] Future Scheduled 1972 Screening for malignant [facility] Test 00:00:00 neoplasm of colon Medical Ce nter (procedure) [code = 951377941] Future Scheduled 1972 Screening for malignant [facility] Test 00:00:00 neoplasm of colon Medical Ce nter (procedure) [code = 750794587] Future Scheduled 1972 Screening for malignant [facility] Test 00:00:00 neoplasm of colon Medical Ce nter (procedure) [code = 477229974] Future Scheduled 1972 Screening for malignant [facility] Test 00:00:00 neoplasm of colon Medical Ce nter (procedure) [code = 125098750] Future Scheduled 1972 Sigmoidoscopy [facility]code [facility]] [facility] Goal Plan of Care Note [code = 15669-8] Goal Plan of Care Note [code = 50434-5] Goal Plan of Care Note [code = 96573-5] Goal Plan of Care Note [code = 70686-9] Goal Plan of Care Note [code = 11032-0] Goal Plan of Care Note [code = 26483-2] Goal Plan of Care Note [code = 92440-6] Goal Plan of Care Note [code = 91105-7] Goal Plan of Care Note [code = 99831-1] Goal Plan of Care Note [code = 46016-7] Goal Plan of Care Note [code = 84490-4] Goal Plan of Care Note [code = 51000-3] Goal Plan of Care Note [code = 47485-7] Goal Plan of Care Note [code = 90496-2] Goal Plan of Care Note [code = 77092-4] Goal Plan of Care Note [code = 52583-3] Goal Plan of Care Note [code = 71547-1] Goal Plan of Care Note [code = 48076-9] Goal Plan of Care Note [code = 87146-2] Goal Plan of Care Note [code = 62538-2] Goal Plan of Care Note [code = 31482-3] Goal Plan of Care Note [code = 62775-3] Goal Plan of Care Note [code = 69928-1] Goal Plan of Care Note [code = 17053-1] Goal Plan of Care Note [code = 43928-8] Goal Plan of Care Note [code = 59926-4] Goal Plan of Care Note [code = 17737-6] Goal Plan of Care Note [code = 65320-3] Goal Plan of Care Note [code = 59621-8] Goal Plan of Care Note [code = 63448-6] Goal Plan of Care Note [code = 79901-5] Goal Plan of Care Note [code = 69901-2] Goal Plan of Care Note [code = 41168-1] Goal Plan of Care Note [code = 25818-0] Goal Plan of Care Note [code = 81194-5] Encounters Start End Encounter Admission Attending Care Care Encounter Source Date/Time Date/Time Type Type Clinicians Facility Department ID 2021-05-20 Emergency [facility] [id number] Univers 18:48:04 [facility] 2021-05-20 Emergency [facility] [id number] Univers 12:43:40 [facility] 2022-08-28 2022-08-28 Patient Shy Beckman [id number] Univers 00:00:00 00:00:00 Outreach E [place] [id number] i [id number] [address] 2022-08-20 2022-08-20 Patient Shy Beckman [id number] Univers 00:00:00 00:00:00 Outreach E [place] [id number] [id number] [id number] [address] Branch 2022-08-02 2022-08-03 [facility] Halima Mendoza [facility] [id number] 17:30:00 14:29:00 Encounter Jen Yepez, [facility] 2022-08-02 2022-08-03 [facility] Halima Mendoza [facility] [id number] 17:30:00 14:29:[address] [facility], [facility] 2022-08-02 2022-08-03 Outpatient ER YUNG DIANE Neurology [id number] SLE 17:30:00 14:29:00 [facility] 2022-08-03 2022-08-03 Orders [facility] [id number] 00:00:00 00:00:[address] [facility] 2022-08-03 2022-08-03 Orders [facility] [id number] 00:00:00 00:00:[address] [facility] 2022-08-02 2022-08-02 Travel [facility] [id number] [facility] 00[facility]00 [facility] 2022-08-02 2022-08-02 Travel [facility] [id number] [facility] 00:[facility]:00 [facility] 2022-07-31 2022-08-01 Inpatient X ARDEN [facility] [id number] Univers 11:42:00 21:48:00 LORENZA najera [facility] 2022-07-31 2022-08-01 [facility] Sav Rondon [facility] 1.2.840.1 14 [id number] Univers 11:42:00 21:48:00 Encounter Lorenza Her 350.1.13.10 ity of [place] 4.2.7.2.686 [facility] [id number] [facility] [address] 2022-08-01 2022-08-01 Transition BLAYNE Nicole 1.2.840.114 [id number] Univers 00:00:00 00:00:00 of Care Maria Teresa WALLACE 350.1.13.10 ity of [place] 4.2.7.2.686 [facility] [id number] [facility] [address] 2022-07-28 2022-07-28 Outpatient SFA BHARAT [id number] 023 Adria 14:41:38 14:41:38 0109 F Mauricio 2022-07-28 2022-07-28 Outpatient [id number] 3d [id number] 00:00:00 00:00:00 Visit [id number] -8zw9-9iz [id number] [id number] 2022-07-24 2022-07-24 Outpatient [facility] [id number] 023 Adria 13:24:40 13:24:40 0105 F [place] 2022-05-23 2022-05-23 Outpatient [facility] [id number] 022 Adria 14:51:01 14:51:01 1104 F [place] 2022-05-23 2022-05-23 Outpatient [id number]- [id number] f9 unex39-g 00:00:00 00:00:00 Visit n58m-5uk3 [id number]-4bb7-b -p15f-2t8 [id number]-[id number] [id number] 7850ee 2022-05-04 2022-05-08 Outpatient X CHANTEL MATTHEWS [facility] S [id number] Univers 20:22:00 14:44:00 CHANTEL MATTHEWS ity [facility] 2022-05-04 2022-05-08 Emergency BrinerBrandyn 1.2.840.1 14 [id number] Univers 20:22:00 14:44:00 Chantel Matthews 350.1.13 .10 ity [facility] 4.2.7.2.686 [facility] [phone] [address] 2022-04-13 2022-04-15 Inpatient X [facility] [id number] Univers 13:06:00 15:00:00 SELINA ity [facility] 2022-04-13 2022-04-15 Hospital Sapna Vargas 1.2.84 0.114 [id number] Univers 13:06:00 15:00:00 Encounter Glory Esteves 350. 1.13.10 ity [facility] 4.2.7.2.686 [place] [id number] [address] 2022-02-19 2022-02-19 Imm/Inj Vaccine, [facility] [place] 1.2.840.114 [id number] Univers 10:20:00 10:30:00 Visit Jose Frederick 350.1.13.10 it[place] [facility] [id number] [facility] [address] 2022-02-19 2022-02-19 Outpatient R JOSE FREDERICK [facility] [id number] Univers 10:20:00 10:20:00 ity of [facility] 2021-11-23 2021-11-23 Emergency X SULLY [facility] ERT [id number] Univers 15:07:00 17:03:00 FOLANA ity of [facility] 2021-11-23 2021-11-23 Emergency Sav Rondon [facility] 1.2.840. 114 [id number] Univers 15:07:00 17:03:00 Nichelle Allison MO[place]O 350.1.13. 10 ity of [place] 4.2.7.2.686 [facility] [id number] [place] 927284 Branch 2021-11-21 2021-11-21 Outpatient R [facility] [id number] Univers 09:40:00 09:40:00 ity of [facility] 2021-05-24 2021-05-24 Outpatient R JOSE FREDERICK [facility] [id number] Univers 09:30:00 09:30:00 ity [facility] 2021-05-24 2021-05-24 Imm/Inj Vaccine, [facility] [place] 1.2.840.114 [id number] Univers 08:47:51 08:57:51 Visit Jose Frederick 350.1.13.10 [place] [facility] [id number] [address] 2021-05-03 2021-05-03 Outpatient R JOSE FREDERICK [facility] [id number] Univers 09:40:00 09:59:35 ity of [facility] 2021-05-03 2021-05-03 Imm/Inj Vaccine, [facility] [place] 1.2.840.114 [id number] Univers 09:17:43 09:59:35 Visit Jose Frederick 350.1.13.10 it[place] [facility] [place]2.[place] [facility] [id number] [facility] [address] 2021-04-16 2021-04-16 Orders Doctor EWELINA 1.2.840.114 [id number] Univers 00:00:00 00:00:00 Only Unassigned, HOSEA 350.1.13.10 ity of [place] [facility] 4.2.7.2.686 Javier as [phone] [facility] [address] 2021-03-17 2021-03-17 Telephone EWELINA Nava 1.2.397.956 [id number] Univers 00:00:00 00:00:00 Aneatrice HOSEA 350.1.13.10 ity of [facility] 4.2.7.2.686 Javier as [id number] [facility] [address] 2021-03-16 2021-03-16 [facility] 1.2.840.114 [id number] Univers 20:08:00 23:24:00 Fabrice Harrell 350.1.13.10 i ty of [place] 4.2.7.2.686 [facility] [id number] [facility] [address] 2021-03-14 2021-03-14 Urgent Lydia Desouza [facility] 1.2.840.114 [id number] Univers 18:59:34 20:19:13 Care Unknown, Attending Health 350.1.13.10 ity [facility] 4.2.7.2.686 Javier as Prem?Blea [id number] [address] Medical Office Building 2021-03-14 2021-03-14 Outpatient R UNKNOWN, [facility] [id number] Univers 19:00:00 19:00:00 ATTENDING ity of [facility] 2021-02-19 2021-02-19 [facility] 1.2.919.338 [id number] Univers 10:49:00 14:48:00 Anali Harrell 350.1.13.10 i ty of [place] 4.2.7.2.686 [facility] [phone] [facility] [address] 2019-03-09 2019-03-09 Dick Arcos HIKEVIN 1.2.840.114 [id number] Univers 00:00:00 00:00:00 Yehuda Harrell 350.1.13.10 ity of [place] 4.2.7.2.686 [facility] [id number] Al dical nal 092 [facility] 2019-03-09 2019-03-09 Dick Arcos HIKEVIN 1.2.840.114 [id number] 00:00:00 00:00:00 Yehuda Harrell 350.1.13.10 [place] 4.2.7.2.686 [facility] [id number] [address] Results Test Description Test Time Test Comments Results Result Comments Source RPR 2022-08-05 13:17:22 Test Item Value Reference Range Interpretation Comme nts RPR SCREEN ([facility]) (test code = 420) Nonreactive Nonreactive HEMOGLOBIN [id number] 10:39:49 Test Item Value Reference Range Interpretation Comments HEMOGLOBIN A1C 5.8 % See_Comment H [Automated m essage] ELECTROPHORESIS ([facility]) The system which (test code = 3811) generated this result transmitted ref erence range: <=5.6%. The reference range was not used to int erpret this result as normal/abnormal . "The A1c is measured using a NGSP-certified method. HbA1c value equal to or greater than 6.5% as thediagnosis cutoff for diabetes. An HbA1c value of 5.7- 6.4% indicates increased risk for diabetes (prediabetes)."Finishing Frame Runner ID - ADM VITAMIN [id number] 22:48:27 Test Item Value Reference Range Interpretation Comments VITAMIN B12 ([facility]) (test code = 227 pg/mL 213816 764) Finishing Frame Runner ID - MARCOTSH/FREE T4 IF [id number] 22:08:28 Test Item Value Reference Range Interpretation Comments THYROID STIMULATING HORMONE 3.309 uIU/mL 0.350-4.940 ([employer]) (test code = 772) Finishing Frame Runner ID - JSHIV-1 ANTIGEN WITH HIV-1/2 [id number] 22:08:28 Test Item Value Reference Range Interpretation Comments HIV-1 ANTIGEN WITH HIV 1\\T\\2 Nonreactive Nonreactive ANTIBODY (2) (BEAKER) (test code = 2586) Finishing Frame Runner ID - JSC-REACTIVE [id number] 21:49:44 Test Item Value Reference Range Interpretation Comments C-REACTIVE PROTEIN (BEAKER) (test 0.35 mg/dL 0.00-0.50 code = 676) Finishing Frame Runner ID - JSCOMPREHENSIVE METABOLIC [id number] 21:49:43 Test Item Value Reference Range Interpretation [...] not appl icable for dialysis patien ts Finishing Frame Runner ID - JSLIPID [id number] 21:49:43 Test Item Value Reference Range Interpretation [...] Borderline 130-159 High 160-189 Very High >=190 Finishing Frame Runner ID - JSCBC W/PLT COUNT & AUTO [id number] 21:34:03 Test Item Value Reference Range Interpretation [...] Interpretation Comments Height (test code = in 8145501756) Weight (test code = lbs 5039144559) Systolic BP (test code = mmHg 8190210058) Diastolic BP (test code mmHg = 3168327460) Heart Rate (test code = bpm 3178447164) BSA (test code = 2.00 m2 1155562020) Ao root diam (test code 3.20 cm = 7605535010) Aortic root (test code = 3.2 cm 9095871935) Ao root annulus (test 3.2 cm code = 5043105038) LVOT diameter (test code 1.99 cm = 1161952815) LVOT area (test code = 3.10 cm2 3075606919) LVIDD (test code = 5.10 cm 5500604666) Left Ventricular End 123.0 mL Diastolic Volume by Teichholz Method (test code = 9644104) IVS (test code = 1.34 cm 5720389463) Interventricular Septum 1.34 cm Diastolic Thickness by 2D (test code = 4852456) LVPWD (test code = 1.34 cm 9911299812) PW (test code = 1.34 cm 0.6-1.7 8540130748) EF(Teich) (test code = 41.80 % 2443582169) LVIDS (test code = 4.00 cm 9766803862) Left Ventricular End 71.5 mL Systolic Volume by Teichholz Method (test code = 6388499) FS (test code = 21 % 6128845541) EF - 2D (test code = 41.80 % 66051854) LA size (test code = 4.6 cm 8371093310) Pulmonic Regurgitant End 119.4 cm/s Max Velocity (test code = 4678033965) LAV(MOD-sp4) (test code 95.00 mL = 1500499220) E wave decelartion time 0.15 s (test code = 1562215483) MV stenosis pressure 1/2 45.6 ms time (test code = 8147439946) MV Peak A Evette (test code 123.8 cm/s = 5954487622) MV Peak E Evette (test code 109.7 cm/s = 8784958356) E/A ratio (test code = ratio 7789465878) MR max PG (test code = 87.20 mm[Hg] 7018810527) MR max evette (test code = 466.90 cm/s 1925028710) Mr max evette (test code = 466.9 m/s 3684570480) MV Prop V (test code = 51.00 cm/s 7747587092) MV E/e' septal (test 8.1 cm/s code = 9234482195) Tapse (test code = 2.21 cm 7346224533) LVOT stroke volume (test 49.80 cm3 code = 0746371719) LVOT peak evette (test code 89.1 cm/s = 0649356982) LVOT mn grad (test code mmHg = 0371698698) AV LVOT peak gradient mmHg (test code = 7581794673) LVOT peak VTI (test code 16.0 cm = 0667479163) LV V1 mean (test code = 64.30 cm/s 4811308618) Aortic valve mean 133.8 cm/s velocity (test code = 4313971226) Ao peak evette (test code = 175.3 cm/s 9533174087) Ao VTI (test code = 32.2 cm 4731711111) AV area by cont VTI 1.6 cm2 (test code = 8144046280) AV area peak evette (test 1.6 cm2 code = 3702562229) Ao max PG (test code = 12.30 mm[Hg] 0223409455) AV peak gradient (test mmHg code = 6231409699) AV valve area (test code 1.55 cm2 = 3014656624) AV mean gradient (test mmHg code = 7153059994) AV regurgitation 358.5 ms pressure 1/2 time (test code = 1887969247) AI dec slope (test code 364.20 cm/s2 = 6091026948) AI max evette (test code = 445.80 cm/s 9307890582) AI max PG (test code = 79.50 mm[Hg] 5774226353) Radiology Study observation (narrative) (test code = 72561-7) LYNDSAY (test code = LYNDSAY) ?Left?Ventricle: Left [...] mL of Lumason ultrasound enhancing agent used. [facility]2022-[facility]-01 10:43:32 Test Item Value Reference Range Interpretation Comments POCT GLU (test code = 8200082191) 148 mg/dL 70-110 H Lab Interpretation (test code = Abnormal 45520-6) [facility] THRMPLAS [id number] 18:39:45 Test Item Value Reference Range Interpretation Comments APTT Patient (test See_Comment [Automat ed code = 3173-2) message] The system which generated this result transmitted reference range : 23 - 38 Seconds . The reference range was not used to interpr et this result as normal/abnormal . LYNDSAY (test code = LYNDSAY) The [facility] patient population mean normal value for aPTT is 30 seconds. Lab Interpretation Normal (test code = 88317-5) [facility] HospitalPROT[facility]OMBIN TIME / [id number] 18:37:42 Test Item Value Reference Range Interpretation [...] tions. Lab Interpretation (test Normal code = 22822-6) [facility]TR[facility] [id number] 18:32:01 Test Item Value Reference Interpretation Comments Range TROPONIN I (test 0.019 ng/mL See_Comment [Automated code = 1134178310) message] The system which generated this result [...] biotin. Lab Interpretation Normal (test code = 37826-5) [facility]MINAL [id number] 18:29:01 Test Item Value Reference Range Interpretation Comments NT-proBNP (test code 2770 pg/mL See_Comment H [Autom ated = 9259732367) message] The system which generated this result transmitted reference range : <=125. The reference range was not used to interpret this result as normal/abnormal . LYNDSAY (test code = LYNDSAY) Biotin has been reported to cause a negative bias, interpret results relative to patient's use of biotin. Lab Interpretation Abnormal (test code = 19193-0) [facility]. METABOLIC PANEL (95628)2022-07-31 18:21:42 Test Item Value Reference Range Interpretation Comments NA (test code = 136 mmol/L 135-145 8921572622) K (test code = 4.6 mmol/L 3.5-5.0 9966162439) CL (test code = 104 mmol/L 98-108 0217286455) CO2 TOTAL (test code = 26 mmol/L 23-31 7186650071) AGAP (test code = 2-16 4909259626) BUN (test code = 9 mg/dL 7-23 9669724529) GLUCOSE (test code = 97 mg/dL 70-110 4997243194) CREATININE (test code = 0.64 mg/dL 0.50-1.04 2973217200) TOTAL BILI (test code = 0.5 mg/dL 0.1-1.9 1606250546) CALCIUM (test code = 8.2 mg/dL 8.6-10.6 L 6385011836) T PROTEIN (test code = 6.5 g/dL 6.3-8.2 8927593588) ALBUMIN (test code = 3.9 g/dL 3.5-5.0 3528125133) ALK PHOS (test code = 93 U/L 34-122 9658517749) ALTv (test code = 18 U/L 5-35 1742-6) AST(SGOT) (test code = 19 U/L 13-40 9505086735) eGFR (test code = mL/min/1.73m2 7402566735) LYNDSAY (test code = LYNDSAY) Association of [...] tests). Lab Interpretation Abnormal (test code = 17935-3) [facility]IPASE2023-01-12 18:21:01 Test Item Value Reference Range Interpretation Comments LIPASE (test code = 3284524373) 54 U/L 0-220 Lab Interpretation (test code = Normal 97488-2) [facility] WITH [id number] 18:07:00 Test Item Value Reference Range Interpretation [...] (test code = 53.1 fL 39.0-49.9 H 41791-5) RDW-CV (test code = 17.0 % 12.0-15.5 H 788-0) PLT (test code = See_Comment H [Automated 777-3) message] The sy stem which generated this result transmitted reference range : 166 - 358 10*3/ ?L. The reference r zoe was not used to interpret this result as normal/abnormal . MPV (test code = 8.2 fL 9.5-12.9 L 63590-0) NRBC/100 WBC (test See_Comment [Automat ed code = 5752030684) message] The system which generated this result transmitted reference range : 0.0 - 10.0 /100 WBCs. The refer ence range was not u sed to interpret th is result as normal/abnormal . NRBC x10^3 (test code See_Comment [Auto mated = 5163351568) message] The s [employer] which generated this result transmitted reference range : 10*3/?L. The reference range was not used to interpret this result as normal/abnormal . GRAN MAT (NEUT) % 64.0 % (test code = 770-8) IMM GRAN % (test code 0.40 % = 5337541093) LYMPH % (test code = 27.3 % 736-9) MONO % (test code = 6.5 % 5905-5) EOS % (test code = 1.1 % 713-8) BASO % (test code = 0.7 % 706-2) GRAN MAT x10^3(ANC) 5.46 10*3/uL 1.88-7.09 (test code = 4415105630) IMM GRAN x10^3 (test 0.03 10*3/uL 0.00-0.06 code = 3348251443) LYMPH x10^3 (test code 2.32 10*3/uL 1.32-3.29 = 731-0) MONO x10^3 (test code 0.55 10*3/uL 0.33-0.92 = 742-7) EOS x10^3 (test code = 0.09 10*3/uL 0.03-0.39 711-2) BASO x10^3 (test code 0.06 10*3/uL 0.01-0.07 = 704-7) Lab Interpretation Abnormal (test code = 05777-0) [facility] METABOLIC PANEL (NA, K, CL, CO2, GLUCOSE, BUN, CREATININE, CA)2022-05-08 06:37:01 Test Item Value Reference Range Interpretation Comments NA (test code = 137 mmol/L 135-145 7288476971) K (test code = 3.8 mmol/L 3.5-5 1019761887) CL (test code = 103 mmol/L 98-108 6370675036) CO2 TOTAL (test code = 24 mmol/L 23-31 3928278829) AGAP (test code = 2-16 1156170557) BUN (test code = 13 mg/dL 7-23 1641194056) GLUCOSE (test code = 90 mg/dL 70-110 7401625978) CREATININE (test code = 0.69 mg/dL 0.5-1.04 7692139996) CALCIUM (test code = 8.5 mg/dL 8.6-10.6 L 2334199125) eGFR (test code = mL/min/1.73m2 7523572655) LYNDSAY (test code = LYNDSAY) Association of [...] tests). Lab Interpretation Abnormal (test code = 63623-6) [facility]2022-10-20 06:37:01 Test Item Value Reference Range Interpretation Comments MAGNESIUM (test code = 9848688377) 2.1 mg/dL 1.7-2.4 Lab Interpretation (test code = Normal 99994-4) [facility]PHOSPHORUS2022-10-20 06:37:01 Test Item Value Reference Range Interpretation Comments PHOSPHORUS (test code = 3412658991) 4.7 mg/dL 2.5-5 Lab Interpretation (test code = Normal 49703-6) [facility] WITH [id number] 06:11:54 Test Item Value Reference Range Interpretation [...] (test code = 51.0 fL 39-49.9 H 03192-4) RDW-CV (test code = 16.5 % 12-15.5 H 788-0) PLT (test code = See_Comment H [Automated 777-3) message] The sy stem which generated this result transmitted reference range : 166 - 358 10*3/ ?L. The reference r zoe was not used to interpret this result as normal/abnormal . MPV (test code = 8.3 fL 9.5-12.9 L 89523-8) NRBC/100 WBC (test See_Comment [Automat ed code = 6687614392) message] The system which generated this result transmitted reference range : 0.0 - 10.0 /100 WBCs. The refer ence range was not u sed to interpret th is result as normal/abnormal . NRBC x10^3 (test code See_Comment [Auto mated = 0472548151) message] The s ystem which generated this result transmitted reference range : 10*3/?L. The reference range was not used to interpret this result as normal/abnormal . GRAN MAT (NEUT) % 64.5 % (test code = 770-8) IMM GRAN % (test code 0.50 % = 4878456134) LYMPH % (test code = 27.1 % 736-9) MONO % (test code = 6.6 % 5905-5) EOS % (test code = 0.6 % 713-8) BASO % (test code = 0.7 % 706-2) GRAN MAT x10^3(ANC) 5.28 10*3/uL 1.88-7.09 (test code = 4519212885) IMM GRAN x10^3 (test 0.04 10*3/uL 0-0.06 code = 8896887306) LYMPH x10^3 (test code 2.22 10*3/uL 1.32-3.29 = 731-0) MONO x10^3 (test code 0.54 10*3/uL 0.33-0.92 = 742-7) EOS x10^3 (test code = 0.05 10*3/uL 0.03-0.39 711-2) BASO x10^3 (test code 0.06 10*3/uL 0.01-0.07 = 704-7) Lab Interpretation Abnormal (test code = 74566-0) [facility]2022-05-07 01:18:10 Test Item Value Reference Range Interpretation Comments POCT GLU (test code = 9029136112) 120 mg/dL 70-110 H Lab Interpretation (test code = Abnormal 55937-1) [facility] HospitalType and Screen - ONCE [id number] 05:46:35 Test Item Value Reference Range Interpretation Comments ABO & RH (test code O POSITIVE Performe d at [facility] = 20) Laboratory Serv [facility] s [address]Tdmz Free: [phone] A No. [id number] IAT (test code = Negative Performed a t [facility] 1185) [facility] [address] [facility] s [address]Leim Free: [phone] A No. [id number] [facility] HospitalBASIC METABOLIC PANEL (NA, K, CL, CO2, GLUCOSE, BUN, CREATININE, CA)2022-05-05 08:22:57 Test Item Value Reference Range Interpretation Comments NA (test code = 136 mmol/L 135-145 3861133243) K (test code = 4.9 mmol/L 3.5-5 6918185158) CL (test code = 108 mmol/L 98-108 6936426760) CO2 TOTAL (test code = 22 mmol/L 23-31 L 7332403788) AGAP (test code = 2-16 5013170777) BUN (test code = 12 mg/dL 7-23 5466144207) GLUCOSE (test code = 155 mg/dL 70-110 H 0248171710) CREATININE (test code = 0.63 mg/dL 0.5-1.04 2824525040) CALCIUM (test code = 8.4 mg/dL 8.6-10.6 L 1517968407) eGFR (test code = mL/min/1.73m2 1660379607) LYNDSAY (test code = LYNDSAY) Association of [...] tests). Lab Interpretation Abnormal (test code = 48499-2) [facility] HospitalPROTHROMBIN TIME / [id number] 08:22:37 Test Item Value Reference Range Interpretation [...] tions. Lab Interpretation (test Normal code = 19693-9) [facility]aPTT2022-10-17 08:22:37 Test Item Value Reference Range Interpretation Comments APTT Patient (test code = See_Comment [ Automated message] 3173-2) The system whic h generated this result transmitted ref erence range: 26 - 36 Seconds. The re ference range was not u sed to interpret this result as normal/abnor mal. Lab Interpretation (test Normal code = 99884-8) [facility] HospitalFIBRINOGEN2022-10-17 08:22:37 Test Item Value Reference Range Interpretation Comments Fibrinogen (test code = 0623416893) 294 mg/dL 167-453 Lab Interpretation (test code = Normal 29748-1) [facility]CBC WITH [id number] 08:15:01 Test Item Value Reference Range Interpretation Comments WBC (test code = See_Comment [Automated 0790-2) message] The sy stem which generated this [...] (test code = 52.9 fL 39-49.9 H 46774-1) RDW-CV (test code = 16.8 % 12-15.5 H 788-0) PLT (test code = See_Comment H [Automated 777-3) message] The sy stem which generated this result transmitted reference range : 166 - 358 10*3/ ?L. The reference r zoe was not used to interpret this result as normal/abnormal . MPV (test code = 8.3 fL 9.5-12.9 L 22040-9) NRBC/100 WBC (test See_Comment [Automat ed code = 8869451296) message] The system which generated this result transmitted reference range : 0.0 - 10.0 /100 WBCs. The refer ence range was not u sed to interpret th is result as normal/abnormal . NRBC x10^3 (test code See_Comment [Auto mated = 5545192511) message] The s ystem which generated this result transmitted reference range : 10*3/?L. The reference range was not used to interpret this result as normal/abnormal . GRAN MAT (NEUT) % 86.4 % (test code = 770-8) IMM GRAN % (test code 0.40 % = 2824246354) LYMPH % (test code = 11.7 % 736-9) MONO % (test code = 1.1 % 5905-5) EOS % (test code = 0.0 % 713-8) BASO % (test code = 0.4 % 706-2) GRAN MAT x10^3(ANC) 6.36 10*3/uL 1.88-7.09 (test code = 5957154426) IMM GRAN x10^3 (test 0.03 10*3/uL 0-0.06 code = 9732504616) LYMPH x10^3 (test code 0.86 10*3/uL 1.32-3.29 L = 731-0) MONO x10^3 (test code 0.08 10*3/uL 0.33-0.92 L = 742-7) EOS x10^3 (test code = 0.03-0.39 L 711-2) BASO x10^3 (test code 0.03 10*3/uL 0.01-0.07 = 704-7) Lab Interpretation Abnormal (test code = 19747-0) [facility]VIT[facility]IN D, [id number] 20:14:03 Test Item Value Reference Range Interpretation Comments VIT D 25OH (test code = 22 ng/mL 25-80 L 71581-5) LYNDSAY (test code = LYNDSAY) Deficiency: <20 ng/mLInsufficiency: 20-24 ng/mLOptimal: 25-80 ng/mL Lab Interpretation (test Abnormal code = 45138-1) [facility]I METABOLIC PANEL (NA, K, CL, CO2, GLUCOSE, BUN, CREATININE, CA)2022-04-15 11:27:57 Test Item Value Reference Range Interpretation Comments NA (test code = 138 mmol/L 135-145 8152585261) K (test code = 3.9 mmol/L 3.5-5 9360503514) CL (test code = 106 mmol/L 98-108 2838371540) CO2 TOTAL (test code = 23 mmol/L 23-31 8270580946) AGAP (test code = 2-16 1919796751) BUN (test code = 10 mg/dL 7-23 5502728185) GLUCOSE (test code = 91 mg/dL 70-110 8479933277) CREATININE (test code = 0.65 mg/dL 0.5-1.04 3678037673) CALCIUM (test code = 8.1 mg/dL 8.6-10.6 L 4575532705) eGFR (test code = mL/min/1.73m2 1109715188) LYNDSAY (test code = LYNDSAY) Association of [...] tests). Lab Interpretation Abnormal (test code = 84036-8) [facility] (TTE) 2022-04-14 22:07:33 Test Item Value Reference Range Interpretation Comments Height (test code = in 4992369704) Weight (test code = lbs 8209659437) Systolic BP (test code = mmHg 9417903457) Diastolic BP (test code mmHg = 0274949752) Heart Rate (test code = bpm 0366315631) BSA (test code = 1.94 m2 7348145384) TASV (test code = 15.5 cm/s 8024432118) LVIDD (test code = 6.00 cm 4347439455) Left Ventricular End 183.0 mL Diastolic Volume by Teichholz Method (test code = 7698153) IVS (test code = 1.09 cm 7212340512) Interventricular Septum 1.09 cm Diastolic Thickness by 2D (test code = 4974839) LVPWD (test code = 0.94 cm 5520322580) PW (test code = 0.94 cm 0.6-1.5 9245399889) EF(Teich) (test code = 40.30 % 8555416872) LVIDS (test code = 4.80 cm 2136407415) Left Ventricular End 109.2 mL Systolic Volume by Teichholz Method (test code = 2947793) FS (test code = 20 % 3974876719) EF - 2D (test code = 40.30 % 11257408) LVOT diameter (test code 2.05 cm = 7126163874) LVOT area (test code = 3.30 cm2 5122392978) Ao root diam (test code 3.10 cm = 8508957968) Aortic root (test code = 3.1 cm 9201977383) Ao root annulus (test 3.1 cm code = 8509539083) LA size (test code = 4.2 cm 6195843928) LAV(MOD-sp4) (test code 64.90 mL = 8560774535) MV Peak A Evette (test code 115.7 cm/s = 2661398760) E wave decelartion time 0.15 s (test code = 8589431180) MV Peak E Evette (test code 106.2 cm/s = 3841374258) E/A ratio (test code = ratio 3099924928) LVOT stroke volume (test 48.30 cm3 code = 0587357187) LVOT peak evette (test code 78.4 cm/s = 0513446677) LVOT mn grad (test code mmHg = 8674530125) AV LVOT peak gradient mmHg (test code = 3184219875) LVOT peak VTI (test code 14.7 cm = 6674378170) LV V1 mean (test code = 51.40 cm/s 3473747393) Ao peak evette (test code = 154.7 cm/s 8630059979) AV area peak evette (test 1.7 cm2 code = 7185344965) Ao max PG (test code = 9.60 mm[Hg] 7755908038) AV peak gradient (test mmHg code = 2875997764) AV regurgitation 257.3 ms pressure 1/2 time (test code = 5165475153) AI dec slope (test code 498.10 cm/s2 = 3446171099) AI max evette (test code = 437.60 cm/s 1673422229) AI max PG (test code = 77.80 mm[Hg] 2124296125) Tapse (test code = 2.19 cm 5480607161) LA Volume Index (BP) 32.0 mL/m2 (test code = 5901290892) LA volume (BP) (test 62.1 mL code = 9281068677) LAV(MOD-sp2) (test code 52.70 mL = 8097650840) A4C EF (test code = 44.80 % 2464349094) EF(sp4-el) (test code = 45.20 % 2985856850) SV(MOD-sp4) (test code = 71.20 mL 2607854049) SV(sp4-el) (test code = 73.90 mL 1946962895) LV Diastolic Volume (BP) 146.3 mL (test code = 7221906243) A2C EF (test code = 52.00 % 1500842609) EF(MOD-bp) (test code = 46.70 % 6564557774) EF(sp2-el) (test code = 52.40 % 5092813518) LV Systolic Volume (BP) 77.9 mL (test code = 5322620454) SV(MOD-bp) (test code = 68.40 mL 5186800501) SV(MOD-sp2) (test code = 69.20 mL 3002816188) EF (test code = 4363470850) Left Ventricular Stroke 68.4 mL Volume by 2-D Biplane-MOD (test code = 5182156) Radiology Study observation (narrative) (test code = 73511-3) LYNDSAY (test code = LYNDSAY) ?Left?Ventricle: Left [...] agent used and saline contrast was performed. [facility]14 16:48:36 Test Item Value Reference Range Interpretation Comments KEPPRA (test code = 12-46 L 0366263605) LYNDSAY (test code = LYNDSAY) Therapeutic range: 12-46 ?g/mL ? ?Toxic: Not well established.Test developed and characteristics determined by [facility] Laboratory Services. Lab Interpretation Abnormal (test code = 07607-0) [facility] Met[facility] (Na, K, Cl, CO2, Glucose, BUN, Creatinine, Ca)2022-04-14 10:50:11 Test Item Value Reference Range Interpretation Comments NA (test code = 136 mmol/L 135-145 4697741184) K (test code = 3.8 mmol/L 3.5-5 0574240504) CL (test code = 105 mmol/L 98-108 0530680341) CO2 TOTAL (test code = 25 mmol/L 23-31 4172762518) AGAP (test code = 2-16 8659325213) BUN (test code = 9 mg/dL 7-23 0709969760) GLUCOSE (test code = 101 mg/dL 70-110 7543655070) CREATININE (test code = 0.66 mg/dL 0.5-1.04 0840125247) CALCIUM (test code = 8.1 mg/dL 8.6-10.6 L 2982213334) eGFR (test code = mL/min/1.73m2 8142901914) LYNDSAY (test code = LYNDSAY) Association of [...] tests). Lab Interpretation Abnormal (test code = 02757-8) [facility] HospitalMagensium, [id number] 10:50:11 Test Item Value Reference Range Interpretation Comments MAGNESIUM (test code = 2729192515) 1.9 mg/dL 1.7-2.4 Lab Interpretation (test code = Normal 52643-6) [facility] HospitalThyroid Stimulating [id number] 22:21:44 Test Item Value Reference Range Interpretation Comments TSH (test code = See_Comment Biotin has been 6525683549) reported to cau se a negative bias, interpret resul ts relative to autumn garcia's use of biotin. [Automated mess age] The system [employer] generated this result transmitted ref erence range: 0.45 - 4 .70 mIU/L. The refe rence range was not u sed to interpret this result as normal/abnor mal. Lab Interpretation (test Normal code = 53425-0) [facility] HospitalGLYCOSYLATED HEMOGLOBIN (A1C)2022-04-13 21:53:43 Test Item Value Reference Range Interpretation Comments HGB A1C (test code = 5.8 % 4-5.7 H 4548-4) LYNDSAY (test code = LYNDSAY) Reference RangesNormal: <5.7%Prediabetes: 5.7 - 6.4%Diabetes: > 6.5% Lab Interpretation (test Abnormal code = 75927-8) [facility]FA[facility] (06111)(TOTAL CHOLESTEROL, TRIGLYCERIDES, HDL)2022-04-13 21:34:53 Test Item Value Reference Range Interpretation Comments CHOL (test code = 201 mg/dL 120-200 H 9429677368) HDL (test code = 56 mg/dL See_Comment [Automated message] 1043746642) The system [employer] generated this result transmit sherice reference range : >=50. The refer ence range was not u sed to interpret th is result as normal/abnormal . HDLC RATIO (test code = See_Comment [Au tomated message] 9051375878) The system [employer] generated this result transmit sherice reference range : <=4.5. The refe rence range was not u sed to interpret th is result as normal/abnormal . TRIG (test code = 355 mg/dL 30-170 H 3055292664) LDL CHOL (test code = 74 mg/dL See_Comment [Auto mated message] 45000-3) The system [employer] generated this result transmit sherice reference range : <=160. The refe rence range was not u sed to interpret th is result as normal/abnormal . VLDL (test code = 71 mg/dL 5-60 H 9958258888) Lab Interpretation (test Abnormal code = 41440-6) [facility] HospitalTroponin I - Code [id number] 18:46:27 Test Item Value Reference Interpretation Comments Range TROPONIN I (test 0.013 ng/mL See_Comment [Automated code = 3219803860) message] The system which generated this result [...] biotin. Lab Interpretation Normal (test code = 42008-1) [facility] Metabolic Panel (NA, K, CL, CO2, Glucose, BUN, Creatinine, CA) - Code [id number] 18:35:07 Test Item Value Reference Range Interpretation Comments NA (test code = 136 mmol/L 135-145 1847017081) K (test code = 4.3 mmol/L 3.5-5 7049359786) CL (test code = 105 mmol/L 98-108 3553758369) CO2 TOTAL (test code = 27 mmol/L 23-31 9026231681) AGAP (test code = 2-16 6173636308) BUN (test code = 8 mg/dL 7-23 2928004052) GLUCOSE (test code = 130 mg/dL 70-110 H 2304676648) CREATININE (test code = 0.75 mg/dL 0.5-1.04 6372735159) CALCIUM (test code = 8.5 mg/dL 8.6-10.6 L 6768399722) eGFR (test code = mL/min/1.73m2 2915597578) LYNDSAY (test code = LYNDSAY) Association of [...] tests). Lab Interpretation Abnormal (test code = 01640-5) [facility] HospitalaPTT - Code [id number] 18:32:46 Test Item Value Reference Range Interpretation Comments APTT Patient (test See_Comment [Automat ed code = 3173-2) message] The system which generated this result transmitted reference range : 23 - 38 Seconds . The reference range was not used to interpr et this result as normal/abnormal . LYNDSAY (test code = LYNDSAY) The [facility] patient population mean normal value for aPTT is 30 seconds. Lab Interpretation Normal (test code = 21624-1) [facility] HospitalProthrombin Time / INR - Code [id number] 18:30:45 Test Item Value Reference Range Interpretation [...] tions. Lab Interpretation (test Normal code = 87343-3) [facility] without Diff - Code [id number] 18:23:07 Test Item Value Reference Range Interpretation Comments WBC (test code = 6690-2) See_Comment [A utomated message] The system [employer] generated this result transmit sherice reference range : 4.30 - 11.10 10*3/?L. The reference range was not used to interpret this result as normal/abnormal . RBC (test code = 789-8) See_Comment [Au tomated message] The system [employer] generated this result transmit sherice reference range [...] See_Comment H [Au tomated message] The system [employer] generated this result transmit sherice reference range : 166 - 358 10*3/?L. The reference range was not used to interpret this result as normal/abnormal . MPV (test code = 8.1 fL 9.5-12.9 L 78909-6) RDW-CV (test code = 16.1 % 12-15.5 H 788-0) RDW-SD (test code = 49.2 fL 39-49.9 77257-3) NRBC x10^3 (test code = See_Comment [Au tomated message] 3590672498) The system [employer] generated this result transmit sherice reference range : 10*3/?L. The reference range was not used to interpret this result as normal/abnormal . NRBC/100 WBC (test code See_Comment [Au tomated message] = 2812458715) The system [employer] generated this result transmit sherice reference range : 0.0 - 10.0 /100 WBC s. The reference r zoe was not used to interpret this result as normal/abnormal . IPF % (test code = 3767026807) Lab Interpretation (test Abnormal code = 82540-6) [facility] HospitalTROPONIN [id number] 21:06:40 Test Item Value Reference Interpretation Comments Range TROPONIN I (test 0.005 ng/mL See_Comment [Automated code = 7017019957) message] The system which generated this result [...] biotin. Lab Interpretation Normal (test code = 39868-1) [facility] HospitalCOMP. METABOLIC PANEL (35446)2021-11-23 20:55:42 Test Item Value Reference Range Interpretation Comments NA (test code = 137 mmol/L 135-145 1570169858) K (test code = 4.3 mmol/L 3.5-5.0 0401419621) CL (test code = 104 mmol/L 98-108 8780696798) CO2 TOTAL (test code = 22 mmol/L 23-31 L 1743434459) AGAP (test code = 2-16 1056449725) BUN (test code = 15 mg/dL 7-23 0104025133) GLUCOSE (test code = 114 mg/dL 70-110 H 1056913552) CREATININE (test code = 0.68 mg/dL 0.50-1.04 0561584280) TOTAL BILI (test code = 0.5 mg/dL 0.1-1.7 5541897539) CALCIUM (test code = 9.1 mg/dL 8.6-10.6 5898582976) T PROTEIN (test code = 7.3 g/dL 6.3-8.2 2409593816) ALBUMIN (test code = 4.4 g/dL 3.5-5.0 5971194334) ALK PHOS (test code = 243 U/L 34-122 H 8541594602) ALTv (test code = 24 U/L 5-35 1742-6) AST(SGOT) (test code = 30 U/L 13-40 2767519177) eGFR (test code = mL/min/1.73m2 7099925139) LYNDSAY (test code = LYNDSAY) Association of [...] tests). Lab Interpretation Abnormal (test code = 80811-9) [facility] HospitalLIPASE2022-[facility]-07 20:55:22 Test Item Value Reference Range Interpretation Comments LIPASE (test code = 9361773332) 96 U/L 0-220 Lab Interpretation (test code = Normal 17260-5) [facility] HospitalPOCT [id number] 20:46:00 Test Item Value Reference Range Interpretation Comments POCT PREG (test code = 1605) negative On board controls acceptable with present C Line (test code = 3574) POCT PREG LOT # (test code = 3575) [id number] POCT PREG TEST DATE (test 04/18/2023 code = 3576) Lab Interpretation (test code = Normal 08925-5) [facility] HospitalCB WITH [id number] 20:40:38 Test Item Value Reference Range Interpretation Comments WBC (test code = See_Comment [Automated 4090-2) message] The sy stem which generated this result transmitted reference range : 4.30 - 11.10 10*3/?L. The reference range was not used to interpret this result as normal/abnormal . RBC (test code = See_Comment [Automated 709-8) message] The sy stem which generated this [...] (test code = 53.7 fL 39.0-49.9 H 87267-2) RDW-CV (test code = 17.2 % 12.0-15.5 H 788-0) PLT (test code = See_Comment H [Automated 777-3) message] The sy stem which generated this result transmitted reference range : 166 - 358 10*3/ ?L. The reference r zoe was not used to interpret this result as normal/abnormal . MPV (test code = 8.5 fL 9.5-12.9 L 77633-5) NRBC/100 WBC (test See_Comment [Automat ed code = 8861213083) message] The system which generated this result transmitted reference range : 0.0 - 10.0 /100 WBCs. The refer ence range was not u sed to interpret th is result as normal/abnormal . NRBC x10^3 (test code <0.01 See_Comment [Auto mated = 3876639782) message] The s ystem which generated this result transmitted reference range : 10*3/?L. The reference range was not used to interpret this result as normal/abnormal . GRAN MAT (NEUT) % 53.7 % (test code = 770-8) IMM GRAN % (test code 0.90 % = 3159003289) LYMPH % (test code = 32.6 % 736-9) MONO % (test code = 10.1 % 5905-5) EOS % (test code = 1.5 % 713-8) BASO % (test code = 1.2 % 706-2) GRAN MAT x10^3(ANC) 4.98 10*3/uL 1.88-7.09 (test code = 4459977240) IMM GRAN x10^3 (test 0.08 10*3/uL 0.00-0.06 H code = 6153517580) LYMPH x10^3 (test code 3.02 10*3/uL 1.32-3.29 = 731-0) MONO x10^3 (test code 0.94 10*3/uL 0.33-0.92 H = 742-7) EOS x10^3 (test code = 0.14 10*3/uL 0.03-0.39 711-2) BASO x10^3 (test code 0.11 10*3/uL 0.01-0.07 H = 704-7) Lab Interpretation Abnormal (test code = 39402-7) [facility]PO[facility] GLUCOSE (AUTOMATED)2021-11-23 20:17:33 Test Item Value Reference Range Interpretation Comments POCT GLU (test code = 111 mg/dL 70-110 H Notifi ed Provider [id number]) Lab Interpretation (test Abnormal code = 80147-9) [facility] HospitalPAP TEST, THINPREP, [id number] 00:00:00 Test Item Value Reference Range Interpretation Comments SOURCE: (test code = Endocervical 8001) SLIDES: (test code = 1 8011) LMP: (test code = 8021) 06/03/2021 SPECIMEN ADEQUACY: (test (NOTE) code = 11502) INTERPRETATION: (test ASCUS/EPITH. code = 36750) ABNORMALITY; SEE BELOW TECHNOLOGY ADVISOR: (test Anusha code = 8101) CHANA Sepulveda(ASCP)[facility] PATHOLOGIST Nahid Russell, INTERPRETATION BY: (test M.D. code = 8122) LOCATION: (test code = (NOTE) 81422) CPT: (test code = 8140) (NOTE) PAP TEST, THINPREP, [id number] 00:00:00 Test Item Value Reference Range Interpretation Comments SOURCE: (test code = Endocervical 8001) SLIDES: (test code = 1 8011) LMP: (test code = 8021) 06/03/2021 SPECIMEN ADEQUACY: (test (NOTE) code = 50007) INTERPRETATION: (test ASCUS/EPITH. code = 85586) ABNORMALITY; SEE BELOW TECHNOLOGY ADVISOR: (test Anusha code = 8101) CHANA Sepulveda(ASCP)[facility] PATHOLOGIST Nahid Russell, INTERPRETATION BY: (test M.D. code = 8122) LOCATION: (test code = (NOTE) 76696) CPT: (test code = 8140) (NOTE) PAP TEST, THINPREP, [id number] 00:00:00 Test Item Value Reference Range Interpretation Comments SOURCE: (test code = Endocervical 8001) SLIDES: (test code = 1 8011) LMP: (test code = 8021) 06/03/2021 SPECIMEN ADEQUACY: (test (NOTE) code = 99823) INTERPRETATION: (test ASCUS/EPITH. code = 55735) ABNORMALITY; SEE BELOW TECHNOLOGY ADVISOR: (test Anusha code = 8101) CHANA Sepulveda(ASCP)[facility] PATHOLOGIST Nahid Russell, INTERPRETATION BY: (test M.D. code = 8122) LOCATION: (test code = (NOTE) 14025) CPT: (test code = 8140) (NOTE) PAP TEST, THINPREP, [id number] 00:00:00 Test Item Value Reference Range Interpretation Comments SOURCE: (test code = Endocervical 8001) SLIDES: (test code = 1 8011) LMP: (test code = 8021) 06/03/2021 SPECIMEN ADEQUACY: (test (NOTE) code = 81807) INTERPRETATION: (test ASCUS/EPITH. code = 68592) ABNORMALITY; SEE BELOW TECHNOLOGY ADVISOR: (test Anusha code = 8101) CHANA Sepulveda(ASCP)[facility] PATHOLOGIST Nahid Russell, INTERPRETATION BY: (test M.D. code = 8122) LOCATION: (test code = (NOTE) 69099) CPT: (test code = 8140) (NOTE) HPV HIGH RISK WITH GENOTYPE, [id number] 00:00:00 Test Item Value Reference Range Interpretation Comments HPV HIGH RISK INTERP (test code = POSITIVE 67438) HPV 16 (test code = 22805) POSITIVE HPV 18 (test code = 69026) NEGATIVE HPV, HR, OTHER GENOTYPES (test code POSITIVE = 09090) HPV HIGH RISK WITH GENOTYPE, [id number] 00:00:00 Test Item Value Reference Range Interpretation Comments HPV HIGH RISK INTERP (test code = POSITIVE 57636) HPV 16 (test code = 76334) POSITIVE HPV 18 (test code = 40560) NEGATIVE HPV, HR, OTHER GENOTYPES (test code POSITIVE = 20862) HPV HIGH RISK WITH GENOTYPE, [id number] 00:00:00 Test Item Value Reference Range Interpretation Comments HPV HIGH RISK INTERP (test code = POSITIVE 20694) HPV 16 (test code = 86549) POSITIVE HPV 18 (test code = 82489) NEGATIVE HPV, HR, OTHER GENOTYPES (test code POSITIVE = 97020) HPV HIGH RISK WITH GENOTYPE, [id number] 00:00:00 Test Item Value Reference Range Interpretation Comments HPV HIGH RISK INTERP (test code = POSITIVE 99674) HPV 16 (test code = 59902) POSITIVE HPV 18 (test code = 22562) NEGATIVE HPV, HR, OTHER GENOTYPES (test code POSITIVE = 27227) [id number] 03:22:48 Test Item Value Reference Range Interpretation Comments APPEARANCE (test code = Hazy Clear A 4701343807) COLOR (test code = Yellow Yellow 9970396577) PH (test code = 4.8-8.0 7898721539) SP GRAVITY (test code = 1.003-1.030 3101138308) GLU U QUAL (test code = Normal Normal 2283418964) BLOOD (test code = Negative Negative Interfere nce from 3455649393) ascorbic acid m ay cause false neg ative results. KETONES (test code = 5 mg/dL Negative A 4729053794) PROTEIN (test code = Negative Negative 2887-8) UROBILIN (test code = 4.0 mg/dL Normal A 7714136519) BILIRUBIN (test code = Negative Negative 1983814392) NITRITE (test code = Negative Negative 8890687205) LEUK GRUPO (test code = Negative Negative 1427702897) RBC/HPF (test code = See_Comment [Autom ated message] 4321931392) The system [employer] generated this result transmitted ref erence range: 0 - 3 HP F. The reference range was not used to int erpret this result as normal/abnormal . WBC/HPF (test code = <1 See_Comment [Autom ated message] 6997948172) The system [employer] generated this result transmitted ref erence range: 0 - 5 HP F. The reference range was not used to int erpret this result as normal/abnormal . BACTERIA (test code = Few Negative A 9944045170) SQ EPITH (test code = HPF 5121321187) Lab Interpretation Abnormal (test code = 44750-3) [facility]IN[facility]IS2021-[facility] 03:22:48 Test Item Value Reference Range Interpretation Comments APPEARANCE (test code = Hazy Clear A 8756876176) COLOR (test code = Yellow Yellow 1956005169) PH (test code = 4.8-8.0 7134847970) SP GRAVITY (test code = 1.003-1.030 3529137631) GLU U QUAL (test code = Normal Normal 1646492720) BLOOD (test code = Negative Negative 6777611576) KETONES (test code = 5 mg/dL Negative A 8874609413) PROTEIN (test code = Negative Negative 2887-8) UROBILIN (test code = 4.0 mg/dL Normal A 7645386859) BILIRUBIN (test code = Negative Negative 3158961801) NITRITE (test code = Negative Negative 4186487932) LEUK GRUPO (test code = Negative Negative 7782797136) RBC/HPF (test code = See_Comment [Autom ated message] 0338866472) The system [employer] generated this result transmit sherice reference range : 0 - 3 HPF. The refe rence range was not u sed to interpret th is result as normal/abnormal . WBC/HPF (test code = <1 See_Comment [Autom ated message] 5865392357) The system [employer] generated this result transmit sherice reference range : 0 - 5 HPF. The refe rence range was not u sed to interpret th is result as normal/abnormal . BACTERIA (test code = Few Negative A 0495787242) SQ EPITH (test code = HPF 2522025399) Lab Interpretation (test Abnormal code = 73201-0) [facility] [id number] 02:45:00 Test Item Value Reference Interpretation Comments Range TROPONIN I (test 0.002 ng/mL See_Comment [Automated code = 7628478252) message] The system which generated this result [...] biotin. Lab Interpretation Normal (test code = 66584-4) [facility] [id number] 02:45:00 Test Item Value Reference Range Interpretation Comments TROPONIN I (test code = 0.002 ng/mL See_Comment [Au tomated 7186841013) message] The sy stem which generated this result transmitted reference range : <=0.034. The reference range was not used to interpret this result as normal/abnormal . LYNDSAY (test code = LYNDSAY) Lab Interpretation Normal (test code = 97849-8) [facility]MINAL [id number] 02:41:57 Test Item Value Reference Range Interpretation Comments NT-proBNP (test code 169 pg/mL See_Comment H [Autom ated = 4242015051) message] The system which generated this result transmitted reference range : <=125. The reference range was not used to interpret this result as normal/abnormal . LYNDSAY (test code = LYNDSAY) Biotin has been reported to cause a negative bias, interpret results relative to patient's use of biotin. Lab Interpretation Abnormal (test code = 89911-7) [facility]AL [id number] 02:41:57 Test Item Value Reference Range Interpretation Comments NT-proBNP (test code = 169 pg/mL See_Comment H [Aut omated message] 0241316610) The system [employer] generated this result transmit sherice reference range : <=125. The refe rence range was not u sed to interpret th is result as normal/abnormal . LYNDSAY (test code = LYNDSAY) Lab Interpretation (test Abnormal code = 53170-3) [facility]. METABOLIC PANEL (77105)2021-03-17 02:09:13 Test Item Value Reference Range Interpretation Comments NA (test code = 137 mmol/L 135-145 5216859334) K (test code = 4.2 mmol/L 3.5-5.0 9285217363) CL (test code = 102 mmol/L 98-108 6063339412) CO2 TOTAL (test code = 25 mmol/L 23-31 4858422368) AGAP (test code = 2-16 8299271977) BUN (test code = 18 mg/dL 7-23 3123262868) GLUCOSE (test code = 144 mg/dL 70-110 H 6661626084) CREATININE (test code = 0.77 mg/dL 0.50-1.04 5951822204) TOTAL BILI (test code = 0.4 mg/dL 0.1-1.7 9629544457) CALCIUM (test code = 8.9 mg/dL 8.6-10.6 5205692786) T PROTEIN (test code = 6.8 g/dL 6.3-8.2 9922143648) ALBUMIN (test code = 3.9 g/dL 3.5-5.0 5597655576) ALK PHOS (test code = 84 U/L 34-122 7251852814) ALTv (test code = 13 U/L 5-35 1742-6) AST(SGOT) (test code = 17 U/L 13-40 8396607546) eGFR (test code = mL/min/1.73m2 4441303999) LYNDSAY (test code = LYNDSAY) Association of [...] tests). Lab Interpretation Abnormal (test code = 17565-9) [facility]. METABOLIC PANEL (98156)2021-03-17 02:09:13 Test Item Value Reference Range Interpretation Comments NA (test code = 1782174523) 137 mmol/L 135-145 K (test code = 4152692178) 4.2 mmol/L 3.5-5.0 CL (test code = 4182948237) 102 mmol/L 98-108 CO2 TOTAL (test code = 7212497318) 25 mmol/L 23-31 AGAP (test code = 4334092843) 2-16 BUN (test code = 4374251179) 18 mg/dL 7-23 GLUCOSE (test code = 0203778840) 144 mg/dL 70-110 H CREATININE (test code = 0.77 mg/dL 0.50-1.04 0092332921) TOTAL BILI (test code = 0.4 mg/dL 0.1-1.5 1087575095) CALCIUM (test code = 2843738341) 8.9 mg/dL 8.6-10.6 T PROTEIN (test code = 2941126537) 6.8 g/dL 6.3-8.2 ALBUMIN (test code = 0039209063) 3.9 g/dL 3.5-5.0 ALK PHOS (test code = 6507660223) 84 U/L 34-122 ALTv (test code = 1742-6) 13 U/L 5-35 AST(SGOT) (test code = 0807191071) 17 U/L 13-40 eGFR (test code = 4409893234) mL/min/1.73m2 LYNDSAY (test code = LYNDSAY) Lab Interpretation (test code = Abnormal 21448-4) [facility] WITH [id number] 01:56:33 Test Item Value Reference Range Interpretation Comments WBC (test code = See_Comment H [Automated 4923-2) message] The sy stem which generated this result transmitted reference range : 4.30 - 11.10 10*3/?L. The reference range was not used to interpret this result as normal/abnormal . RBC (test code = See_Comment [Automated 460-8) message] The sy stem which generated this [...] (test code = 55.5 fL 39.0-49.9 H 70010-7) RDW-CV (test code = 18.9 % 12.0-15.5 H 788-0) PLT (test code = See_Comment H [Automated 777-3) message] The sy stem which generated this result transmitted reference range : 166 - 358 10*3/ ?L. The reference r zoe was not used to interpret this result as normal/abnormal . MPV (test code = 8.2 fL 9.5-12.9 L 98253-2) NRBC/100 WBC (test See_Comment [Automat ed code = 4494876830) message] The system which generated this result transmitted reference range : 0.0 - 10.0 /100 WBCs. The refer ence range was not u sed to interpret th is result as normal/abnormal . NRBC x10^3 (test code <0.01 See_Comment [Auto mated = 3915418970) message] The s ystem which generated this result transmitted reference range : 10*3/?L. The reference range was not used to interpret this result as normal/abnormal . GRAN MAT (NEUT) % 61.7 % (test code = 770-8) IMM GRAN % (test code 0.80 % = 2347891010) LYMPH % (test code = 28.5 % 736-9) MONO % (test code = 6.3 % 5905-5) EOS % (test code = 1.8 % 713-8) BASO % (test code = 0.9 % 706-2) GRAN MAT x10^3(ANC) 7.31 10*3/uL 1.88-7.09 H (test code = 5557060124) IMM GRAN x10^3 (test 0.09 10*3/uL 0.00-0.06 H code = 0297849815) LYMPH x10^3 (test code 3.38 10*3/uL 1.32-3.29 H = 731-0) MONO x10^3 (test code 0.75 10*3/uL 0.33-0.92 = 742-7) EOS x10^3 (test code = 0.21 10*3/uL 0.03-0.39 711-2) BASO x10^3 (test code 0.11 10*3/uL 0.01-0.07 H = 704-7) Lab Interpretation Abnormal (test code = 46121-4) [facility] WITH [id number] 01:56:33 Test Item Value Reference Range Interpretation [...] (test code = 55.5 fL 39.0-49.9 H 26077-0) RDW-CV (test code = 18.9 % 12.0-15.5 H 788-0) PLT (test code = See_Comment H [Automated 777-3) message] The sy stem which generated this result transmitted reference range : 166 - 358 10*3/ ?L. The reference r zoe was not used to interpret this result as normal/abnormal . MPV (test code = 8.2 fL 9.5-12.9 L 10654-9) NRBC/100 WBC (test See_Comment [Automat ed code = 0795239555) message] The system which generated this result transmitted reference range : 0.0 - 10.0 /100 WBCs. The refer ence range was not u sed to interpret th is result as normal/abnormal . NRBC x10^3 (test code <0.01 See_Comment [Auto mated = 7294066081) message] The s ystem which generated this result transmitted reference range : 10*3/?L. The reference range was not used to interpret this result as normal/abnormal . GRAN MAT (NEUT) % 61.7 % (test code = 770-8) IMM GRAN % (test code 0.80 % = 5758966514) LYMPH % (test code = 28.5 % 736-9) MONO % (test code = 6.3 % 5905-5) EOS % (test code = 1.8 % 713-8) BASO % (test code = 0.9 % 706-2) GRAN MAT x10^3(ANC) 7.31 10*3/uL 1.88-7.09 H (test code = 0672412573) IMM GRAN x10^3 (test 0.09 10*3/uL 0.00-0.06 H code = 4753320361) LYMPH x10^3 (test code 3.38 10*3/uL 1.32-3.29 H = 731-0) MONO x10^3 (test code 0.75 10*3/uL 0.33-0.92 = 742-7) EOS x10^3 (test code = 0.21 10*3/uL 0.03-0.39 711-2) BASO x10^3 (test code 0.11 10*3/uL 0.01-0.07 H = 704-7) Lab Interpretation Abnormal (test code = 86786-5) [facility]2021-03-17 01:38:12 Test Item Value Reference Range Interpretation Comments SARS-CoV-2 Rapid ID NOW Not Detected Not Detected (test code = 31552-1) LYNDSAY (test code = LYNDSAY) ID NOW COVID-19 Assay is an isothermal nucleic acid amplification test intended for the qualitative detection of nucleic acid from SARS-CoV-2 viral RNA in nasopharyngeal (JEWEL INSPECTOR) specimens. It is used under Emergency Use [...] indicated. Lab Interpretation Normal (test code = 73150-1) [facility]2021-03-17 01:38:12 Test Item Value Reference Range Interpretation Comments SARS-CoV-2 Rapid ID NOW (test Not Detected Not Detected code = 11872-3) LYNDSAY (test code = LYNDSAY) Lab Interpretation (test code = Normal 40192-2) [facility]2021-02-19 17:42:45 Test Item Value Reference Range Interpretation Comments SARS-CoV-2 Rapid ID NOW Not Detected Not Detected (test code = 38432-6) LYNDSAY (test code = LYNDSAY) ID NOW COVID-19 Assay is an isothermal nucleic acid amplification test intended for the qualitative detection of nucleic acid from SARS-CoV-2 viral RNA in nasopharyngeal (JEWEL INSPECTOR) specimens. It is used under Emergency Use [...] indicated. Lab Interpretation Normal (test code = 47348-1) [facility] W [id number] 17:24:55Thickening of the gastric antrum and duodenal [...] nodularity of the left adrenal gland.RL: [id number] [facility]inalysis[facility]21-[facility] 17:03:40 Test Item Value Reference Range Interpretation Comments APPEARANCE (test code = Hazy Clear A 0793719022) COLOR (test code = Maebl Yellow A 1986700411) PH (test code = 4.8-8.0 5411474422) SP GRAVITY (test code = 1.003-1.030 H 4776458546) GLU U QUAL (test code = Normal Normal 2223282015) BLOOD (test code = Negative Negative 1316493045) KETONES (test code = 5 mg/dL Negative A 5591630641) PROTEIN (test code = 30 mg/dL Negative A 2887-8) UROBILIN (test code = 4.0 mg/dL Normal A 2290401339) BILIRUBIN (test code = 4 mg/dL Negative A 8249374004) NITRITE (test code = Negative Negative 4248273305) LEUK GRUPO (test code = Negative Negative 4155452179) RBC/HPF (test code = See_Comment H [Autom ated message] 7568004328) The system [employer] generated this result transmit sherice reference range : 0 - 3 HPF. The refe rence range was not u sed to interpret th is result as normal/abnormal . WBC/HPF (test code = See_Comment H [Autom ated message] 8938376572) The system [employer] generated this result transmit sherice reference range : 0 - 5 HPF. The refe rence range was not u sed to interpret th is result as normal/abnormal . BACTERIA (test code = Few Negative A 5720856202) MUCOUS (test code = Moderate Negative LPF A 8036196032) SQ EPITH (test code = HPF 7699110172) CA OXALATE (test code = See_Comment H [Au tomated message] 7299083578) The system [employer] generated this result transmit sherice reference range : <=1 HPF. The refere nce range was not u sed to interpret th is result as normal/abnormal . Ictotest (test code = Negative 7179290039) Lab Interpretation (test Abnormal code = 42167-4) [facility] Metabolic [id number] 16:34:55 Test Item Value Reference Range Interpretation Comments NA (test code = 139 mmol/L 135-145 2247625501) K (test code = 4.3 mmol/L 3.5-5.0 8632713139) CL (test code = 105 mmol/L 98-108 2622912985) CO2 TOTAL (test code 26 mmol/L 23-31 = 6155146653) AGAP (test code = 2-16 9234875312) BUN (test code = 11 mg/dL 7-23 7224693595) GLUCOSE (test code = 95 mg/dL 70-110 6695038245) CREATININE (test code 0.70 mg/dL 0.50-1.04 = 8428101663) TOTAL BILI (test code 0.6 mg/dL 0.1-1.1 = 8277209525) CALCIUM (test code = 8.9 mg/dL 8.6-10.6 7001173372) T PROTEIN (test code 7.7 g/dL 6.3-8.2 = 1596328627) ALBUMIN (test code = 4.1 g/dL 3.5-5.0 6410812841) ALK PHOS (test code = 79 U/L 34-122 0202643996) ALTv (test code = 10 U/L 5-35 2-6) AST(SGOT) (test code 22 U/L 13-40 = 3126402362) eGFR (test code = mL/min/1.73m2 1901096191) LYNDSAY (test code = LYNDSAY) Association of [...] or urine or abnormalities in imaging tests). [facility], [id number] 16:34:14 Test Item Value Reference Range Interpretation Comments LIPASE (test code = 2096888105) 45 U/L 0-220 Lab Interpretation (test code = Normal 43565-3) [facility] with [id number] 16:21:12 Test Item Value Reference Range Interpretation [...] (test code = 54.4 fL 39.0-49.9 H 74559-3) RDW-CV (test code = 18.3 % 12.0-15.5 H 788-0) PLT (test code = See_Comment H [Automated 777-3) message] The sy stem which generated this result transmitted reference range : 166 - 358 10*3/ ?L. The reference r zoe was not used to interpret this result as normal/abnormal . MPV (test code = 8.5 fL 9.5-12.9 L 00014-7) NRBC/100 WBC (test See_Comment [Automat ed code = 1143133178) message] The system which generated this result transmitted reference range : 0.0 - 10.0 /100 WBCs. The refer ence range was not u sed to interpret th is result as normal/abnormal . NRBC x10^3 (test code <0.01 See_Comment [Auto mated = 1443835945) message] The s ystem which generated this result transmitted reference range : 10*3/?L. The reference range was not used to interpret this result as normal/abnormal . GRAN MAT (NEUT) % 78.3 % (test code = 770-8) IMM GRAN % (test code 0.40 % = 0918129055) LYMPH % (test code = 15.4 % 736-9) MONO % (test code = 4.8 % 5905-5) EOS % (test code = 0.1 % 713-8) BASO % (test code = 1.0 % 706-2) GRAN MAT x10^3(ANC) 7.15 10*3/uL 1.88-7.09 H (test code = 6685036266) IMM GRAN x10^3 (test 0.04 10*3/uL 0.00-0.06 code = 0091170089) LYMPH x10^3 (test code 1.41 10*3/uL 1.32-3.29 = 731-0) MONO x10^3 (test code 0.44 10*3/uL 0.33-0.92 = 742-7) EOS x10^3 (test code = <0.03 0.03-0.39 L 711-2) BASO x10^3 (test code 0.09 10*3/uL 0.01-0.07 H = 704-7) Lab Interpretation Abnormal (test code = 59644-1) [facility]
[2022-09-22] MEDS ORDERED: DIAZEPAM 5 MG TABLET ONE (10:20)
[2022-09-22] MEDS ORDERED: HYDROCODONE/APAP 5/325 MG TAB ONE (10:20)
--- NOTE | 2022-09-22 11:48 | RAD REPORT ---
EXAM DESCRIPTION: RAD - Lumbar Spine 3 Views - 09/22/2022 10:39 am CLINICAL HISTORY: Pain COMPARISON: None. FINDINGS: A three-view lumbar spine examination was performed. Lumbar bodies are normal in height and alignment. No fracture or acute bony process seen. Multilevel degenerative changes of the endplates and facet articulations, with advanced disc height loss at L4-5 and moderate disc height loss with disc vacuum phenomenon at L3-4. No other significant findings. R ight upper quadrant surgical clips, likely relates to prior cholecystectomy. IMPRESSION: No acute osseous abnormality. Multilevel degenerative changes as above.
--- NOTE | 2022-09-22 12:12 | ER ---
Nurse's Notes [facility] Name: Heather Coon Age: 52 yrs Sex: Female : 1970 Arrival Date: 09/22/2022 Time: 09:49 Bed IW1 Private MD: Diagnosis: Low back pain;Fall on same level, unspecified Presentation: 09/22 10:10 Chief complaint: Patient states: back pain. Coronavirus screen: At this time, the aa5 client does not indicate any symptoms associated with coronavirus-19. Ebola Screen: Patient denies travel to an Ebola-affected area in the 21 days before illness onset. Initial Sepsis Screen: Does the patient meet any 2 criteria? HR > 90 bpm. Does the patient have a suspected source of infection? No. Patient's initial sepsis screen is negative. Risk Assessment: Do you want to hurt yourself or someone else? Patient reports no desire to harm self or others. Onset of symptoms was 2022. 10:10 Method Of Arrival: Wheelchair aa5 10:10 Acuity: ANDER 4 aa5 Historical: - Allergies: 10:10 fluoxetine; aa5 10:10 Green Tea; aa5 - PMHx: 10:10 Anxiety; Bipolar disorder; Cancer-Cervical; Chronic obstructive lung disease; Chronic aa5 pain; Congestive heart failure; Depression; Diverticulitis; Herniated Back Disc; Hypertension; intestinal mass; Myocardial infarction; pt reports hx of seizures; Spastic Muscles; stroke; - PSHx: 10:10 cervical fusion; Cholecystectomy; foot; Tonsillectomy; aa5 Assessment: 11:49 Reassessment: Patient is alert, oriented x 3, equal unlabored respirations, skin aa5 warm/dry/pink. Vital Signs: 10:10 BP 156 / 90; Pulse 97; Resp 18 S; Temp 97.8(TE); Pulse Ox 100% on R/A; Weight 90.72 kg aa5 (R); Height 5 ft. 3 in. (160.02 cm) (R); 10:10 Body Mass Index 35.43 (90.72 kg, 160.02 cm) aa5 ED Course: 09:49 Patient arrived in ED. rg4 10:03 Norbert Fisher DO is Attending Physician. ms3 10:10 Arm band placed on. aa5 10:11 Triage completed. aa5 12:49 Lorena Vargas, RN is Primary Nurse. iw Administered Medications: 10:17 Drug: HYDROcodone-acetaminophen 5 mg-325 mg 2 tabs Route: PO; aa5 11:49 Follow up: Response: No adverse reaction aa5 10:17 Drug: Valium (diazepam) 5 mg Route: PO; aa5 11:49 Follow up: Response: No adverse reaction aa5 Outcome: 12:11 Discharge ordered by MD. ms3 12:49 Patient left the ED. iw Signatures: Lorena Vargas, RN RN iw Ana Nogueira RN RN aa5 Iveth Vitale rg4 Norbert Fisher DO DO ms3
--- NOTE | 2022-09-22 12:12 | EDPHYS ---
Physician Documentation [facility] Name: Heather Coon Age: 52 yrs Sex: Female : 1970 Arrival Date: 09/22/2022 Time: 09:49 Bed IW1 Private MD: ED Physician Norbert Fisher HPI: 09/22 10:26 This 52 yrs old Female presents to ER via Wheelchair with complaints of Back Pain. ms3 10:26 -year-old female with past medical history of anxiety, bipolar, cervical cancer, COPD, ms3 CHF, epilepsy presents for a fall from standing on Thursday night. Patient states she was walking and her knees gave out. Patient states she was not using her walker at the time. Patient states her pain is a 10/10 and sharp, radiating down bilateral lower extremities. Patient states hot baths make her pain better. Patient denies fevers, chills, nausea, vomiting, urinary, bowel incontinence.. Historical: - Allergies: 10:10 fluoxetine; aa5 10:10 Green Tea; aa5 - PMHx: 10:10 Anxiety; Bipolar disorder; Cancer-Cervical; Chronic obstructive lung disease; Chronic aa5 pain; Congestive heart failure; Depression; Diverticulitis; Herniated Back Disc; Hypertension; intestinal mass; Myocardial infarction; pt reports hx of seizures; Spastic Muscles; stroke; - PSHx: 10:10 cervical fusion; Cholecystectomy; foot; Tonsillectomy; aa5 ROS: 10:26 Constitutional: Negative for fever, and chills. Eyes: Negative for injury, pain, ms3 redness, and discharge, Neck: Negative for injury, pain, and swelling, Cardiovascular: Negative for chest pain, and palpitations. Respiratory: Negative for shortness of breath, cough, wheezing, and pleuritic chest pain, Abdomen/GI: Negative for abdominal pain, nausea, vomiting, diarrhea, and constipation, Skin: Negative for injury, rash, and discoloration. 10:26 Back: Positive for pain at rest. 10:26 MS/extremity: 10:26 All other systems are negative. Exam: 10:26 Constitutional: This is a well developed, well nourished patient who is awake, alert, ms3 and in no acute distress. Head/Face: Normocephalic, atraumatic. Neck: Trachea midline, no cervical lymphadenopathy. Supple, full range of motion without nuchal rigidity, or vertebral point tenderness. No Meningismus. Chest/axilla: Normal chest wall appearance and motion. Nontender with no deformity. Cardiovascular: Regular rate and rhythm with a normal S1 and S2. No gallops, murmurs, or rubs. Normal PMI, no JVD. No pulse deficits. Respiratory: Lungs have equal breath sounds bilaterally, clear to auscultation and percussion. No rales, rhonchi or wheezes noted. No increased work of breathing, no retractions or nasal flaring. Abdomen/GI: Soft, non-tender, with normal bowel sounds. No distension or tympany. No guarding or rebound. No evidence of tenderness throughout. MS/ Extremity: Pulses equal, no cyanosis. Neurovascular intact. Full, normal range of motion. Neuro: Awake and alert, GCS 15, oriented to person, place, time, and situation. Cranial nerves II-XII grossly intact. Motor strength 5/5 in all extremities. Sensory grossly intact. Cerebellar exam normal. Normal gait. Vital Signs: 10:10 BP 156 / 90; Pulse 97; Resp 18 S; Temp 97.8(TE); Pulse Ox 100% on R/A; Weight 90.72 kg aa5 (R); Height 5 ft. 3 in. (160.02 cm) (R); 10:10 Body Mass Index 35.43 (90.72 kg, 160.02 cm) aa5 MDM: 10:09 Patient medically screened. ms3 10:26 Differential diagnosis: vertebral fracture, muscle spasm vs DDD. ms3 12:16 Data reviewed: vital signs, nurses notes, radiologic studies, plain films. I considered ms3 the following discharge prescriptions or medication management in the emergency department Medications were administered in the Emergency Department. See MAR. Independent interpretation of the following test(s) in the Emergency Department X-Ray: My interpretation is Lumbar x-rays reviewed by me do not show compression fx.. Counseling: I had a detailed discussion with the patient and/or guardian regarding: the historical points, exam findings, and any diagnostic results supporting the discharge/admit diagnosis, radiology results, the need for outpatient follow up, to return to the emergency department if symptoms worsen or persist or if there are any questions or concerns that arise at home. ED course: Discussed x-ray results with patient. Patient to follow-up with Dr. Shaggy Camacho in 2 to 3 days. Patient understands and agrees with plan. All questions were answered. Return precautions discussed include worsening symptoms, or any other concerns.. 09/22 10:10 Order name: Lumbar Spine (3 Views) XRAY ms3 09/22 11:48 Order name: RAD; Complete Time: 12:01 EDMS Administered Medications: 10:17 Drug: HYDROcodone-acetaminophen 5 mg-325 mg 2 tabs Route: PO; aa5 11:49 Follow up: Response: No adverse reaction aa5 10:17 Drug: Valium (diazepam) 5 mg Route: PO; aa5 11:49 Follow up: Response: No adverse reaction aa5 Disposition Summary: 09/22/22 12:11 Discharge Ordered Location: Home ms3 Condition: Stable ms3 Diagnosis - Low back pain ms3 - Fall on same level, unspecified ms3 Followup: ms3 - With: Private Physician - When: 2 - 3 days - Reason: Recheck today's complaints Discharge Instructions: - Discharge Summary Sheet ms3 - Acute Back Pain, Adult ms3 Forms: - Medication Reconciliation Form ms3 - Thank You Letter ms3 - Antibiotic Education ms3 - Prescription Opioid Use ms3 Prescriptions: - Cyclobenzaprine 10 mg Oral Tablet - take 1 tablet by ORAL route every 8 hours As needed; 30 tablet; Refills: 0, ms3 Product Selection Permitted Signatures: Dispatcher [employer] Ana Jaramillo, RN RN aa5 Norbert Fisher DO DO ms3
[2022-09-22 12:56] VITALS: BP 156/90; TEMP 97.8; O2SAT 100
== END 2022-09-22 12:49 | disposition home or self-care (01) ==
LOC: ER 09:44
DX: M54.50 Low back pain, unspecified (principal); W18.30XA Fall on same level, unspecified, initial encounter
CPT/HCPCS: 72100; 99282

== ENCOUNTER 2022-11-13 00:36 | Emergency (ER) | payer SELFPAY ==
[2022-11-13] MEDS ORDERED: ASPIRIN 81 MG CHEWABLE TABLET ONE (00:47)
--- OUTSIDE RECORDS SUMMARY | 2022-11-13 00:48 | XMS REPORT | Continuity of Care Document ---
:1970 Author Organization [facility] t Address [address] [place] [address] Care Team Providers Name Role Phone Aneta Silva Primary Care Physician [phone] Rk CAMPOS, Shy Stoner Attending Clinician Halima [...] Attending Clinician Glory Esteves MD Attending Clinician [phone] Selina Martines MD Attending Clinician Vaccine, Chung Pierson Attending Clinician Unavailable Jose Frederick MD Attending Clinician JOSE FREDERICK Attending Clinician Unavailable NICHELLE ALLISON Attending Clinician Unavailable Sully [employer] SUPER[employer]helle Attending Clinician Doctor Unassigned, [place] Attending Clinician Unavailable Miky Nava RN Attending [...] Type Policy Number Effective Date Expiration Date [facility] MEDICAID SSI PENDING 2022 2022 PENDING 00:00:00 00:00:00 Problems Condition Condition Condition Status Onset Resolution Last Treating Co mments Source Name Details Category Date Date Treatment Clinician Date Seizure Seizure Disease [facility] [address] Cardiomyop Cardiomyop Disease Active U nivers athy athy 08-01 ity of 00:00: [address] Branch NSVT NSVT Disease Active Univers [...] 00:00: [place] involving involving 00 Medi kwame [place] 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 angina pectoris pectoris Snores Snores Disease Active Univers 1-12 ity of 00:00: [place] [facility] Cigarette Cigarette Disease Active Uni vers smoker smoker 1-12 ity of 00:00: [place] [facility] Primary Primary Disease Active Univers hypertensi hypertensi 1-12 it y of on on 00:00: [place] [facility] Other Other Disease Active Univers hyperlipid hyperlipid 1-12 it y of emia emia 00:00: [place] [facility] Chronic Chronic Disease Active 2021-07 [...] Neuroforam Disease Active U nivers inal inal 3 ity of stenosis stenosis 00:00: [place] of [...] anxiety 09-27 ity of disorder disorder 00:00: [place] [facility] Agoraphobi Agoraphobi Disease Active U nivers a a 09-27 ity of 00:00: [place] [facility] Bipolar Bipolar Disease Active Univers disorder, disorder, 09-27 ity of in partial [place] 00:[place] remission, remission, 00 Me dical most most Branch recent recent episode episode manic manic 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 09-27 it y of disorder disorder 00:00: [place] [facility] Breast Breast Disease Active Univers mass, left mass, left 09-17 it y of 00:00: [place] [facility] Anxiety Anxiety Disease Active Univers 3 ity of 00:00: [place] [facility] Lower back Lower back Disease Active U nivers pain pain 3 ity of 00:00: [place] [facility] High blood High blood Disease Active U nivers pressure pressure 3 ity of 00:00: [place] [facility] COPD COPD Disease Active Univers (chronic (chronic 09-17 ity of obstructiv obstructiv 00:00: [place] e e 00 Medical pulmonary pulmonary Bran ch disease) disease) Obesity Obesity Disease Active Univers 3 ity of 00:00: [place] 00 Medical Branch Allergies, Adverse Reactions, Alerts Allergy Allergy Status Severity Reaction(s) Onset Inactive Treating Comm ents Source Name Type Date Date Clinician Amaury Propensi [facility] [...] Seizures U nivers Tea ty to comments 1 ity of adverse 00:00: [place] reaction 00 [...] Stop Date Source Natural mother Alcohol abuse [facility] Natural mother Cancer [facility] Natural mother Diabetes [facility] Natural mother Heart disease [facility] Natural mother Hyperlipidemia [facility] Natural mother Kidney disease [facility] Natural mother Stroke [facility] Paternal uncle Diabetes [facility] Social History Social Habit Start Date Stop Date Quantity Comments Source History SDOH Social [facility]ive [facility] Branch History SDOH Social Unive rsity of [facility] [place] [facility] History SDOH Social Unive rsity of [facility] Medical Membership Branch History SDOH Social Unive rsity of [facility] Medical Meetings Branch History of tobacco Cigarette Smoker [facility] use [facility] History SDOH [facility] Alcohol Frequency Medical Center History SDOH [facility] Alcohol Std Drinks Medica l Center History SDOH [facility] Alcohol Binge Medical [address] Exposure to 2022-07-23 2022-08-[address] [facility] SARS-CoV-2 (event) 00:00:00 18:57:00 Medica l [place] Cigarettes smoked 2022-08-02 2022-08-[address] [facility] current (pack per 00:00:00 00:00:00 Medical Center day) - Reported Alcohol intake 2022-08-02 2022-08-02 [facility]00 of alcohol [facility] (finding) Alcohol Comment 2022-08-02 2022-08-[address] [facility] 00:00:00 00:00:00 of [facility] Tobacco use and 2022-08-02 2022-08-02 [address]okeless [address] [facility] exposure 00:00:00 00:00:00 non-user Medical Center History SDOH Social 2022-08-01 2022-08-01 5 Unive rsity of Connections Phone 00:00:00 00:00:00 [place] [facility] History SDOH Social 2022-08-01 2022-08-01 5 Unive rsity of [facility] Living 00:00:00 00:00:00 [place] [facility] History SDOH 2022-08-01 2022-08-01 0 University o f Physical Activity 00:00:00 00:00:00 [place] [facility] DPW Branch History SDOH 2022-08-01 2022-08-01 0 University o f Physical Activity 00:00:00 00:00:00 [place] M edical MPS Branch History SDOH 2022-08-01 2022-08-01 3 University o f Financial 00:00:00 00:00:00 [place] [facility] History SDOH Food 2022-08-01 2022-08-01 1 Univers ity of Worry 00:00:00 00:00:00 [place] [facility] History SDOH Food 2022-08-01 2022-08-01 1 Univers ity of Scarcity 00:00:00 00:00:00 [place] [facility] History SDOH 2022-08-01 2022-08-01 2 University o f Transport Med 00:00:00 00:00:00 [place] Medic al Branch History SDOH 2022-08-01 2022-08-01 2 University o f Transport Non-Med 00:00:00 00:00:00 [place] M [facility]ical [facility] Cigarette 2022-07-31 2022-07-31 University of pack-years 00:00:00 00:00:[address] [facility] Education 2022-07-31 2022-07-31 14 University of 00:00:00 00:00:[address] [facility] Sex Assigned At [address] [facility] 00:00:00 00:00:00 [facility] Smoking Status Start Date Stop Date Source Smokes tobacco daily 2022-08-02 00:00:00 [facility] Medications Ordered Filled Start Stop Current Ordering Indication Dosage Frequency Signature Comments Components Source Medication Medication Date Date Medication? Clinician (SIG) Name Name lisinopriL Yes 10mg 10 mg, Unive rs (PRINIVIL,Z 1-14 Oral, ity of ESTRIL) 15:00: DAILY, [place] tablet 10 00 First dose Medi kwame mg on Sat Branch 08/02/22 at 0900, Until Discontinu ed, Routine predniSONE No 40mg 40 mg, Univ ers (DELTASONE) -14 [...] 1-13 by mouth ity of 23:49: daily. [place] [address] Medical Branch omega-3 2022-0 Yes 1g Take [...] by mouth ity of 23:49: every 8 [place] [address] (eight) Medical hours as Branch needed. pantoprazol 2022-0 Yes 40mg Take 40 mg Univers e 40 mg EC 1-13 by mouth ity o f tablet 23:49: daily. [place] [address] Medical Branch MULTIVITAMI 2022-0 Yes 1{tbl} Take 1 Tab Univers N ORAL 1-13 by mouth ity of 23:49: daily. [place] [address] Medical Branch omega-3 2022-0 Yes 1g Take 1 g Univer s fatty 1-13 by mouth ity of acids-vitam 23:49: [place]. [place] in E (FISH 34 Medical OIL) 1,000 Branch mg capsule loratadine 2022-0 Yes Take by Univ ers (CLARITIN 1-13 mouth ity of LIQUI-GEL) 23:49: daily. [place] 10 mg 34 Medical capsule Branch ondansetron 2022-0 Yes 4mg Take 4 mg U nivers 4 mg tablet 1-13 by mouth ity of 23:49: every 8 [place] [address] (eight) Medical hours as Branch needed. pantoprazol 3-0 Yes 40mg Take 40 mg Univers e 40 mg EC 1-13 by mouth ity o f tablet 23:49: daily. [place] [address] Medical Branch MULTIVITAMI 2022-0 Yes 1{tbl} Take 1 Tab Univers N ORAL 1-13 by mouth ity of 23:49: daily. [place] [address] Medical Branch omega-3 2022-0 Yes 1g Take 1 g Univer s fatty -13 by mouth ity of acids-vitam 23:49: daily. [place] in E (FISH 34 Medical OIL) 1,000 Branch mg capsule loratadine 2022-0 Yes Take by Univ ers (CLARITIN -13 mouth ity of LIQUI-GEL) 23:49: daily. [place] 10 mg 34 Medical capsule Branch ondansetron 2022-0 Yes 4mg Take 4 mg U nivers 4 mg tablet -13 by mouth ity of 23:49: every 8 [place] [address] (eight) Medical hours as Branch needed. pantoprazol 0 Yes 40mg Take 40 mg Univers e 40 mg EC - by mouth ity o f tablet 23:49: daily. [place] [address] Medical Branch benzonatate 2022-0 Yes 100mg 100 mg, Un lois (TESSALON 1-13 Oral, Q8H, ity of PERLES) 20:00: First dose [place] capsule 100 00 on Fri Medica l mg 08/01/22 at Branch 1400, Until Discontinu ed, Routine ipratropium 2022-0 Yes 3mL 3 mL, Unive rs -albuteroL - Inhalation ity of (DUONEB) 18:00: , QID, Jose Miguel 0.5 mg-3 00 First dose Medic al mg(2.5 mg on Fri Branch base)/3 mL 08/01/22 at nebulizer 1200, solution 3 Until mL Discontinu ed, Routine ipratropium 3-0 Yes 3mL 3 mL, Unive rs -albuteroL -13 Inhalation ity of (DUONEB) 17:07: , QIDPRN, [place] 0.5 mg-3 07 Starting Medical mg(2.5 mg on Fri Branch base)/3 mL 08/01/22 at nebulizer 1107, solution 3 Until mL Discontinu ed, MICHAEL, Wheezing, Shortness of Breath sulfur 3-0 2023- No [id number] 5mL 5 mL, Unive rs hexafluorid -01 08-13 Intravenou i ty of e microsphr 17:00: 17:00 s, ONCE, 1 [place] (LUMASON) 00 :00 dose, On Medica l injection 5 Fri Branch mL 08/01/22 at 1100, Routine
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 : TCWOODY pantoprazol Yes [...] Javier as mg 54 Starting Medical on [facility] 07/31/22 at 2352, Until Discontinu ed, Routine, Seizures, Agitation, Anxiety, ETOH / Cocaine Withdrawl foLIC acid 2022-0 Yes 1mg 1 mg, Univer s (FOLATE) 13 Oral, ity of tablet 1 mg 05:45: DAILY, [place] 00 First dose Medical on [facility] 07/31/22 at 2345, Until Discontinu ed, Routine thiamine 2022-0 Yes 100mg 100 mg, Unive rs (VITAMIN 08-01 Oral, ity of B1) tablet 05:45: DAILY, [place] 100 mg 00 First dose Medical on [facility] 07/31/22 at 2345, Until Discontinu ed, Routine LORazepam 2022- No .5mg 0.5 mg, Univ ers (ATIVAN) 08-01 Slow IV ity of injection 05:30: 05:29 Push, [place] 0.5 mg 00 :00 ONCE, 1 Medical dose, On Branch [facility] 07/31/22 at 2330, MICHAEL atorvastati 0 Yes 40mg 40 mg, Univ ers n (LIPITOR) 08-01 Oral, QHS, it y of tablet 40 03:00: First dose [place] mg 00 on [facility] 07/31/22 at Branch 2100, Until Discontinu ed, Routine diphenhydrA 0 Yes 25mg 25 mg, Univ ers MINE 08-01 Oral, ity of (BENADRYL) 00:32: Q6HPRN, [place] tablet 25 02 Starting Medica l mg on [facility] 07/31/22 at 1832, Until Discontinu ed, Routine, Itching enoxaparin 2022-0 Yes 40mg 40 mg, Unive rs (LOVENOX) 07-31 Subcutaneo ity of injection 23:00: us, DAILY, [place] 40 mg 00 First dose Medical on [facility] 07/31/22 at 1700, Until Discontinu ed, Routine morpHINE (2 2022- No 2mg 2 mg, Slow Univers mg/mL) 07-31 IV Push, ity of injection 2 23:00: 22:29 ONCE, 1 [place] mg 00 :00 dose, On Medical [facility] 07/31/22 at 1700, Routine HYDROcodone 2022-0 Yes 1{tbl} 1 tablet, Univers -acetaminop 12 Oral, ity of hen (NORCO) 22:01: Q6HPRN, [place] as 10-325 mg 36 Starting Medica l tablet 1 on [facility] Branch tablet 07/31/22 at 1601, Until Discontinu ed, Routine, Pain (scale 7-10) HYDROcodone 2022-0 2023- No 1{tbl} 1 tablet, Univers -acetaminop 07-3114 Oral, ity of hen (NORCO 22:01: 22:00 Q6HPRN, [place] as 5) 5-325 mg 34 :34 Starting Medi kwame tablet 1 on [facility] Branch tablet 07/31/22 at 1601, Until 08/02/22 [...] ity of succ 19:30: 18:54 Push, ONCE [place] (SOLU-MEDRO 00 :00 NOW, 1 Medica l L) dose, On Branch injection Arpita 125 mg 07/31/22 at 1330, MICHAEL ipratropium 2022- No 3mL 3 mL, [facility] ers -albuteroL -12 12 Inhalation it y of (DUONEB) 19:30: 18:48 , ONCE, 1 [place] as 0.5 mg-3 00 :00 dose, On Medical mg(2.5 mg Arpita Branch base)/3 mL 07/31/22 at nebulizer 1330, MICHAEL solution 3 mL pantoprazol Yes 40mg Take 40 mg Univers e 40 mg EC 12 by mouth ity o f tablet 17:15: daily. [place] 40 Medical Branch MULTIVITAMI Yes 1{tbl} Take 1 Tab Univers N ORAL 12 by mouth ity of 15:50: daily. [place] 57 Medical Branch loratadine Yes Take by [facility] ers (CLARITIN 12 mouth ity of LIQUI-GEL) 15:50: daily. [place] 10 mg 57 Medical capsule Branch ondansetron Yes 4mg Take 4 mg U nivers 4 mg tablet 12 by mouth ity of 15:50: every 8 [place] 57 (eight) Medical hours as Branch needed. omega-3 Yes 1g Take 1 g [facility] fatty 12 by mouth ity of acids-vitam 15:21: [facility]. [place] [facility] (FISH 27 Medical OIL) 1,000 Branch mg capsule TAKE ONE No (1) 1-09 TABLET(S) 00:00: BY MOUTH 00 THREE TIMES A DAY NEEDED. Methylpredn 2021-07- No [id number] 4mg Take 1 Univers isolone 4 0-22 10-24 tablet ity of mg tablet 00:00: 04:59 through [place] 00 :00 enteral Medical tube in Branch the morning for 1 dose. Methylpredn 2021-07- No [id number] 4mg Take 1 Univers isolone 4 0-21 10-23 tablet ity of mg tablet 00:00: 04:59 through [place] 00 :00 enteral Medical tube every Branch 12 (twelve) hours for 2 doses. MULTIVITAMI 2021-07 Yes 1{tbl} Take 1 Tab Univers N ORAL 0-20 by mouth ity of 14:44: daily. [place] 48 Medical Branch omega-3 2021-07 Yes 1g Take 1 g Univer s fatty 0-20 by mouth ity of acids-vitam 14:44: daily. [place] in E (FISH 48 Medical OIL) 1,000 Branch mg capsule loratadine 2021-07 Yes Take by [facility] ers (CLARITIN 0-20 mouth ity of LIQUI-GEL) 14:44: daily. [place] 10 mg 48 Medical capsule Branch ondansetron 2021-07 Yes 4mg Take 4 mg U nivers (ZOFRAN) 4 0-20 by mouth ity o f mg tablet 14:44: every 8 [place] 48 (eight) Medical hours as Branch needed. pantoprazol 2021-07 Yes 40mg Take 40 mg Univers e 0-20 by mouth ity of (PROTONIX) 14:44: daily. [place] 40 mg EC 48 Medical tablet Branch DULoxetine 2021-07 Yes 30mg 30 mg, Unive rs (CYMBALTA) 0-20 Oral, ity of capsule 30 14:00: DAILY, [place] mg 00 First dose Medical on [facility] Branch 05/08/22 at 0900, Until Discontinu ed, Routine divalproex 2021-07 Yes 1000mg 1,000 mg, Univers (DEPAKOTE) 0-20 Oral, BID, ity of EC tablet 13:00: First dose [place] 1,000 mg 00 (after Medical last Branch modificati on) on [facility] 05/08/22 at 0800, Until Discontinu ed, Routine Methylpredn 2021-07- No 4mg 4 mg, [facility] ers isolone 0-20 10-21 Oral, Q8H ity of (MEDROL) 08:50: 08:59 TAPER, 3 [place] tablet 4 mg 10 :00 doses, Medica l First dose Branch on [facility] 05/08/22 at 0400, Last dose on [facility] 05/08/22 at 2000, Routine acetaminoph 2021-07 Yes 1{tbl} 1 tablet, Univers en-codeine 0-20 Oral, ity of (TYLENOL 04:07: Q4HPRN, [place] #3) 300-30 01 Starting Medic al mg [...] Q6HPRN, [place] as 18 Starting Medical on Thu05/07/22 at 1902, Until Discontinu ed, Routine, Anxiety cyclobenzap 2021-07 Yes [id number] 5mg Take 1 Univers rine 5 mg 0-20 tablet by ity o f tablet 00:00: mouth in [place] [address] the Medical morning Branch and 1 tablet at noon and 1 tablet in the evening. cyclobenzap 2021-07 Yes [id number] 5mg Take 1 Univers rine 5 mg 0-20 tablet by ity o f tablet 00:00: mouth in [place] [address] [facility] Branch and 1 tablet at noon and 1 tablet in the evening. cyclobenzap 2021-07 Yes [id number] 5mg Take 1 Univers rine 5 mg 0-20 tablet by ity o f tablet 00:00: mouth in [place] [address] the Medical morning Branch and 1 tablet at noon and 1 tablet in the evening. cyclobenzap 2021-07 Yes [id number] 5mg Take 1 Univers rine 5 mg 0-20 tablet by ity o f tablet 00:00: mouth in [place] [address] [facility] morning Branch and 1 tablet at noon and 1 tablet in the evening. cyclobenzap 2021-07 Yes [id number] 5mg Take 1 Univers rine 5 mg 0-20 tablet by ity o f tablet 00:00: mouth in [address] morning Branch and 1 tablet at noon and 1 tablet in the evening. DULoxetine 2021-07 No [id number] 60mg Take 2 Univers (CYMBALTA) 0-20 11-20 capsules ity of 30 mg 00:00: 05:59 by mouth [place] capsule 00 :00 in the Medical morning Branch for 30 days. divalproex 2021-07- No [id number] 750mg Take 3 Univers (DEPAKOTE) 0-20 11-20 tablets by it y of 250 mg EC 00:00: 05:59 mouth [place] tablet 00 :00 every 8 Medical (eight) Branch hours for 30 days. LORazepam 1 2021-07- No [id number] 1mg Take 1 Univers mg tablet 0-20 [...] Indication s: acute pain Methylpredn 2021-07- No [id number] 4mg Take 1 Univers isolone 4 0-20 -22 tablet by ity of mg tablet 00:00: 04:59 mouth [place] 00 :00 every 8 Medical (eight) Branch hours for 3 doses. divalproex 2021-07 No 750mg 750 mg, Un lois (DEPAKOTE) 0-19 10-20 Oral, BID, it y of EC tablet 01:00: 09:40 First dose [place] 750 mg 00 :23 on [facility] 05/06/22 Branch at 2000, Until Discontinu ed, Routine levETIRAcet 2021-07- No 1500mg 1,500 mg, Univers am (KEPPRA) 0-18 10-18 Oral, BID, i ty of tablet 13:00: 18:38 First dose [place] 1,500 mg 00 :22 (after Medical last Branch modificati on) on [facility] 05/06/22 at 0800, Until Discontinu ed, Routine levETIRAcet 2021-07- No 1000mg 1,000 mg, Univers am (KEPPRA) 0-18 10-18 IV ity of in NACL 05:00: 05:46 Piggyback, Javier as (ISO-OS) 00 :00 ONCE, 1 Medical 1,000 dose, On [place] mg/100 mL Tue RTU 05/06/22 at 0000, Administer over 15 Minutes, 100 mL methocarbam 2021-07 No 500mg 500 mg, U nivers oL 0-18 -18 Oral, QID, ity of (ROBAXIN) 02:15: 23:21 First dose [place] tablet 500 00 :42 on [facility] Medical mg 05/05/22 Branch at 2115, Until Discontinu ed, Routine LORazepam 2021-07 No 2mg 2 mg, Univer s (ATIVAN) 0-18 05-06 Oral, ity of tablet 2 mg 01:30: 01:03 ONCE, 1 [place] 00 :00 dose, On [facility] 05/05/22 at 2030, Routine levETIRAcet 2021-07- No 1000mg 1,000 mg, Univers am (KEPPRA) 005-06 Oral, BID, i ty of tablet 01:00: 04:48 First dose [place] 1,000 mg 00 :06 on [facility] 05/05/22 Branch at 2000, Until Discontinu ed, Routine enoxaparin 2021-07 Yes 40mg 40 mg, Unive rs (LOVENOX) 0-18 Subcutaneo ity of injection 00:15: us, Q24H, [place] as 40 mg 00 First dose Medical on [facility] 05/05/22 at 1915, Until Discontinu ed, Routine levETIRAcet 2021-07 No 1000mg 1,000 mg, Univers am (KEPPRA) 0-17 10-17 IV ity of in NACL 19:45: 20:05 Piggyback, [place] as (ISO-OS) 00 :00 ONCE, 1 Medical 1,000 dose, On [place] mg/100 mL [facility] RTU 05/05/22 at 1445, Administer over 15 Minutes, 100 mL clonazePAM 2021-07 Yes .5mg 0.5 mg, Univ ers (KLONOPIN) 0-17 Oral, BID, ity of tablet 0.5 19:30: First dose [place] mg 00 on [facility] 05/05/22 Branch at 1430, Until Discontinu ed, Routine ibuprofen 2021-07 Yes 600mg 600 mg, Univ ers (IBU) 0-17 Oral, TID ity of tablet 600 19:30: MEALS, [place] mg 00 First dose Medical on [facility] 05/05/22 at 1430, Until Discontinu ed, Routine gabapentin 2021-07 Yes 300mg 300 mg, Uni vers (NEURONTIN) 0-17 Oral, TID, it y of capsule 300 19:30: First dose [place] mg 00 on [facility] 05/05/22 Branch at 1430, Until Discontinu ed, Routine cyclobenzap 2021-07 Yes 5mg 5 mg, Unive rs rine 0-17 Oral, TID, ity of (FLEXERIL) 19:30: First dose [place] tablet 5 mg 00 on [facility] Medica l 05/05/22 Branch at 1430, Until Discontinu ed, Routine acetaminoph 2021-07 Yes 1000mg 1,000 mg, Univers en 0-17 Oral, Q8H, ity of (TYLENOL) 19:30: First dose [place] tablet 00 on [facility] 1,000 mg 05/05/22 Branch at 1430, Until Discontinu ed, Routine pantoprazol 2021-07 Yes 40mg 40 mg, Univ ers e 0-17 Oral, ity of (PROTONIX) 14:00: DAILY, [place] EC tablet 00 First dose Medi kwame 40 mg on [facility] 05/05/22 at 0900, Until Discontinu ed, Routine docusate 2021-07 Yes 100mg 100 mg, Unive rs (COLACE) 0-17 Oral, ity of capsule 100 14:00: DAILY, [place] mg 00 First dose Medical on [facility] 05/05/22 at 0900, Until Discontinu ed, Routine HYDROcodone 2021-07- No 1{tbl} 1 tablet, Univers -acetaminop 0-17 10-17 Oral, ity of hen (NORCO) 10:32: 19:18 Q6HPRN, [place] 10-325 mg 02 :52 Starting Medica l tablet 1 on [facility] tablet 05/05/22 at 0532, Until [facility] 05/05/22 at 1418, Routine, Pain (scale 7-10) ondansetron 2021-07 Yes 4mg 4 mg, Slow Univers (ZOFRAN 0-17 IV Push, ity of (PF)) 06:49: Q6HPRN, [place] injection 4 57 Starting Medi kwame mg on Mon Branch 05/05/22 at 0149, Until Discontinu ed, Routine, Nausea and Vomiting (N/V) HYDROcodone 2021-07- No 1{tbl} 1 tablet, Univers -acetaminop 005-05 Oral, ity of hen (NORCO 06:49: 10:32 Q6HPRN, [place]avier as 5) 5-325 mg 41 :14 Starting Medi kwame tablet 1 on [facility] tablet 05/05/22 at 0149, Until [facility] 05/05/22 at 0532, Routine, Pain (scale 7-10) acetaminoph 2021-07- No 325mg 325 mg, U nivers en 05-05 Oral, ity of (TYLENOL) 06:49: 19:18 Q4HPRN, [place] tablet 325 39 :52 Starting Medic al mg on [facility] 05/05/22 at 0149, Until [facility] 05/05/22 at 1418, Routine, Pain (scale 4-6) ondansetron 2021-07- No 4mg 4 mg, Univ ers (ZOFRAN) 05-05 Oral, ity of tablet 4 mg 04:00: 03:26 ONCE, 1 [place] 00 :00 dose, On [facility] 05/04/22 at 2300, Routine morpHINE (2 2021-07- No 2mg 2 mg, Slow Univers mg/mL) 05-05 IV Push, ity of injection 2 04:00: 03:26 ONCE, 1 [place] mg 00 :00 dose, On [facility] 05/04/22 at 2300, Routine aspirin 81 2021-0 Yes [id number] 81mg Take 1 U nivers mg chewable 9-28 tablet by ity of tablet 00:00: mouth in [place] 00 the Medical morning. Branch aspirin 81 2021-0 Yes [id number] 81mg Take 1 U nivers mg chewable 9-28 tablet by ity of tablet 00:00: mouth in [place] 00 the Medical morning. Branch aspirin 81 2021-0 Yes [id number] 81mg Take 1 U nivers mg chewable 9-28 tablet by ity of tablet 00:00: mouth in [place] 00 the Medical morning. Branch aspirin 81 Yes [id number] 81mg Take 1 U nivers mg chewable 9-28 tablet by ity of tablet 00:00: mouth in [place] 00 the Medical morning. Branch aspirin 81 0 Yes [id number] 81mg Take 1 U nivers mg chewable 9-28 tablet by ity of tablet 00:00: mouth in [place] 00 the Medical morning. Branch aspirin 81 Yes [id number] 81mg Take 1 U nivers mg chewable 9-28 tablet by ity of tablet 00:00: mouth in [place] 00 the Medical morning. Branch MULTIVITAMI Yes 1{tbl} Take 1 Tab Univers N ORAL 04-15 by mouth ity of 17:39: daily. [place] 14 Medical Branch omega-3 Yes 1g Take 1 g Univer s fatty 04-15 by mouth ity of acids-vitam 17:39: daily. [place] in E (FISH 14 Medical OIL) 1,000 Branch mg capsule loratadine Yes Take by Univ ers (CLARITIN 04-15 mouth ity of LIQUI-GEL) 17:39: daily. [place] 10 mg 14 Medical capsule Branch ondansetron Yes 4mg Take 4 mg U nivers (ZOFRAN) 4 04-15 by mouth ity o f mg tablet 17:39: every 8 [place] 14 (eight) Medical hours as Branch needed. pantoprazol Yes 40mg Take 40 mg Univers e 04-15 by mouth ity of (PROTONIX) 17:39: daily. [place] 40 mg EC 14 Medical tablet Branch [...] 2021- No 1{tbl} 1 tablet, Univers en-codeine 9-27 09-27 Oral, ity of (TYLENOL 05:39: 14:39 Q6HPRN, [...] (after Medical last Branch modificati on) on [facility] 04/14/22 at 2145, Until Discontinu ed, Routine ketorolac 2021- No 15mg 15 mg, Unive rs (TORADOL) 04-15 Slow IV ity of injection 02:13: 02:22 Push, [place] 15 mg 00 :00 ONCE, 1 Medical dose, On Branch [facility] [facility] 04/14/22 at 2115, Routine levETIRAcet Yes [id number] 1000mg Take 1 Univers am 1,000 mg 9-27 tablet by ity of tablet 00:00: mouth in [place] [address] the Medical morning Branch and 1 tablet in the evening. atorvastati Yes [id number] 40mg Take 1 Univers n 40 mg 9-27 tablet by ity of tablet 00:00: mouth at [place] [address] bedtime. Medical Branch atorvastati Yes [id number] 40mg Take 1 Univers n 40 mg 9-27 tablet by ity of tablet 00:00: mouth at [place] [address] bedtime. Medical Branch atorvastati Yes [id number] 40mg Take 1 Univers n 40 mg 9-27 tablet by ity of tablet 00:00: mouth at [place] [address] bedtime. Medical Branch atorvastati Yes [id number] 40mg Take 1 Univers n 40 mg 9-27 tablet by ity of tablet 00:00: mouth at [place] 00 bedtime. Medical Branch atorvastati Yes [id number] 40mg Take 1 Univers n 40 mg 9-27 tablet by ity of tablet 00:00: mouth at [place] 00 bedtime. Medical Branch atorvastati Yes [id number] 40mg Take 1 Univers n 40 mg 9-27 tablet by ity of tablet 00:00: mouth at [place] 00 bedtime. Medical Branch levETIRAcet 2021- No [id number] 1000mg Take 1 [facility] am 1,000 mg 9-27 10-20 tablet by it y of tablet 00:00: 00:00 mouth in [place] 00 :00 the Medical morning Branch and 1 tablet in the evening. lidocaine 5 2021- No [id number] 1{patch Apply 1 Univers % (700 04-15 [...] 12 Medical patch 1 Hours, Branch Patch [id number], Starting on Thu04/14/22 at 1645, Until Discontinu ed, Routine, Localized pain aspirin Yes 81mg 81 mg, Univers chewable 04-14 Oral, ity of tablet 81 21:30: DAILY, [place] mg 00 First dose Medical on Thu [place] 04/14/22 at 1630, Until Discontinu ed, Routine acetaminoph Yes 650mg 650 mg, Un lois en 04-14 Oral, ity of (TYLENOL) 21:29: Q6HPRN, [place] tablet 650 25 Starting Medic al mg on Thu [place] 04/14/22 at 1629, Until Discontinu ed, Routine, Pain (scale 1-3), Temp > 38.5 C, Temp > 37.5 C HYDROcodone 2021-0 202- No 1{tbl} 1 tablet, Univers -acetaminop 04-14 Oral, ity of hen (NORCO) 21:29: 05:39 Q6HPRN, [place] 10-325 mg 02 :41 Starting Medica l tablet 1 on [facility] tablet 04/14/22 at 1629, Until Tu04/15/22 at 0039, Routine, Pain (scale 7-10), Pain (scale 4-6) sulfur 2021-0 202- No [id number] 5mL 5 mL, Univ ers hexafluorid 04-14 Intravenou i ty of e microsphr 16:45: 16:45 s, ONCE, 1 [place] (LUMASON) 00 :00 dose, On Medica l injection 5 Thu [place] mL 04/14/22 at 1145, Routine
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 : [employer] clopidogreL Yes 75mg 75 mg, Univ ers (PLAVIX) 75 04-14 Oral, ity of mg tablet 14:00: DAILY, [place] 75 mg 00 First dose Medical on [facility] 04/14/22 at 0900, Until Discontinu ed, Routine pantoprazol Yes 40mg 40 mg, Univ ers e 04-14 Oral, ity of (PROTONIX) 14:00: DAILY, [place] EC tablet 00 First dose Medi kwame 40 mg on [facility] 04/14/22 at 0900, Until Discontinu ed, Routine atorvastati Yes 40mg 40 mg, Univ ers n (LIPITOR) 04-14 Oral, QHS, it y of tablet 40 02:00: First dose [place] mg 00 on [facility] 04/13/22 at Branch 2100, Until Discontinu ed, Routine LORazepam 2021- No 1mg 1 mg, Univer s (ATIVAN) 04-14 Oral, ity of tablet 1 mg 01:30: 01:45 ONCE, 1 [place] 00 :00 dose, On Medical [facility] 04/13/22 at 2030, Routine methocarbam Yes 500mg 500 mg, Un lois oL 04-14 Oral, QID, ity of (ROBAXIN) 01:00: First dose [place] tablet 500 00 on [facility] mg 04/13/22 at Branch 2000, Until Discontinu ed, Routine heparin Yes 5000U 5,000 Univers (porcine) 04-14 Units, ity of injection 01:00: Subcutaneo [place] 5,000 Units 00 us, Q12H, Med ical First dose Branch on [facility] 04/13/22 at 2000, Until Discontinu ed, Routine acetaminoph 2021- No 650mg 650 mg, U nivers en 04-14 Oral, ity of (TYLENOL) 00:23: 21:29 Q6HPRN, [place] tablet 650 25 :42 Starting Medic al mg on [facility] 04/13/22 at 1923, Until 04/14/22 at 1629, Routine, Pain (scale 1-3), Pain (scale 4-6), Temp > 38.5 C, Temp > 37.5 C lidocaine 2021- No 1{patch 1 Patch, Univers (LIDODERM) 04-14 } Topical, ity of 5 % (700 00:22: 13:51 Administer [place] mg/patch) 00 :00 over 12 Medical patch 1 Hours, [place] Patch ONCE, 1 dose, On [facility] 04/13/22 at 1930, Routine FENTanyl PF 2021- No 50ug 50 mcg, Un lois (SUBLIMAZE 04-13 Slow IV ity o f (PF)) 20:30: 19:22 Push, [place] injection 00 :00 ONCE, 1 Medical 50 mcg dose, On [facility] 04/13/22 at 1530, Routine aspirin 2021- No 650mg 650 mg, Unive rs chewable 04-13 Oral, ity of tablet 650 20:15: 20:15 ONCE, 1 [place] mg 00 :00 dose, On Medical [facility] 04/13/22 at 1515, Routine clopidogreL 2021- No 300mg 300 mg, U nivers (PLAVIX) 04-13 Oral, ity of 300 mg 20:00: 19:15 ONCE, 1 [place] tablet 300 00 :00 dose, On Medic al mg [facility] 04/13/22 at 1500, Routine ondansetron 2021- No 4mg 4 mg, Slow Univers (ZOFRAN 04-13 IV Push, ity of (PF)) 19:30: 19:22 ONCE, 1 [place] injection 4 00 :00 dose, On Medi kwame mg [facility] 04/13/22 at 1430, MICHAEL iopamidol No [id number] 100mL 100 mL, Univers (ISOVUE 04-13 Intravenou ity o f 370-500 mL) 18:31: 18:32 s, ONCE, 1 [place] injection 00 :00 dose, On Medica l 100 mL [facility] 04/13/22 at 1345, Routine NaCl 0.9% Yes 5mL 5 mL, Slow Un lois (NS) 04-13 IV Push, ity of injection 5 18:14: PRN - SEE [place] mL 11 [facility] Medical , Branch Starting on [facility] 04/13/22 at 1314, Until Discontinu ed, 10 mL aspirin Yes 324mg 324 mg, Univer s chewable 508 Oral, ity of tablet 324 14:00: DAILY, [place] mg 00 First dose Medical on [facility] 11/24/21 at 0900, Until Discontinu ed, Routine [...] mg 3-09 tablet 00:00: 00 Prozac 20 2-0 No 1mg mg capsule 3-09 00:00: 00 hydroxyzine 2021-0 No 1mg HCl [...] 2-0 No Unknown 3-06 00:00: 00 Dose 2-0 No Unknown 3-06 00:00: 00 Dose 2-0 No Unknown 3-06 00:00: 00 Dose 2-0 No Unknown 3-06 00:00: 00 Dose 2-0 No Unknown 3-06 00:00: 00 Wellbutrin 2020-1 [...] 500mg 500 mg, U nivers n 03-17 08- Oral, ity of (LEVAQUIN) 04:00: 04:22 [...] Medical 03/16/21 at Branch 2100, STAT ondansetron 2020-2020- No 4mg 4 mg, Slow Univers (ZOFRAN [...] Sat Medica l mg(2.5 mg 03/16/21 at [facility])/3 mL 2100, MICHAEL nebulizer solution 3 [...] Slow IV ity of succ 01:57: 02:11 [place], [place] (SOLU-MEDRO 00 :00 ONCE, 1 Medic [...] Slow IV ity of succ 01:57: 02:11 [place], [place] (SOLU-MEDRO 00 :00 ONCE, 1 Medic al L) dose, Sat Branch injection 03/16/21 at 125 mg 2100, STAT ipratropium 2020-0 2020- No 3mL 3 mL, Univ ers -albuteroL 03-17 Inhalation it y of (DUONEB) 01:57: 02:15 , ONCE, 1 [place] 0.5 mg-3 00 :00 dose, Sat Medica l mg(2.5 mg 03/16/21 at [facility])/3 mL 2100, MICHAEL nebulizer solution 3 mL levoFLOXaci No [id number] 500mg Take 1 Univers n 500 mg 03-17 tablet by ity o f tablet 00:00: 04:59 mouth [place] 00 :00 daily for Medical 6 days. [place] levoFLOXaci No [id number] 500mg Take 1 Univers n 500 mg 03-17 tablet by ity o f tablet 00:00: 04:59 mouth [place] 00 :00 daily for Medical 6 days. [place] levoFLOXaci No [id number] 500mg Take 1 Univers n 500 mg 03-17 tablet by ity o f tablet 00:00: 04:59 mouth [place] 00 :00 daily for Medical 6 days. [place] levoFLOXaci No [id number] 500mg Take 1 Univers n 500 mg 03-17 tablet by ity o f tablet 00:00: 04:59 mouth [place] 00 :00 daily for Medical 6 days. Branch predniSONE No [id number] 30mg Take 3 Univers 10 mg 03-17 tablets by ity of tablet 00:00: 04:59 mouth [place] 00 :00 daily for Medical 4 days. Branch predniSONE No [id number] 30mg Take 3 Univers 10 mg 03-17 tablets by ity of tablet 00:00: 04:59 mouth [place] 00 :00 daily for Medical 4 days. Branch predniSONE No [id number] 30mg Take 3 Univers 10 mg 03-17 tablets by ity of tablet 00:00: 04:59 mouth [place] 00 :00 daily for Medical 4 days. Branch predniSONE No [id number] 30mg Take 3 Univers 10 mg 03-17 tablets by ity of tablet 00:00: 04:59 mouth [place] 00 :00 daily for Medical 4 days. Branch albuterol No [id number] 4{puff} 4 Puff, Univers (VENTOLIN) 03-15- Inhalation it y of inhaler 4 01:45: 00:44 , ONCE, 1 [place] Puff 00 :00 dose, [facility] 03/14/21 at Branch 2044, Routine dexamethaso 2020- No [id number] 10mg 10 mg, Univers ne 03-15 Intramuscu ity of (DECADRON) 01:45: 00:45 lar, ONCE, [place] injection 00 :00 1 dose, Medical 10 mg [place] Branch 03/14/21 at 2044, Routine albuterol Yes [id number] 2.5mg Inhale 3 Univers 2.5 mg /3 8-27 mL every 4 ity of mL (0.083 00:00: (four) [place] %) 00 hours as Medical nebulizer needed for Bran ch solution Wheezing or Shortness of Breath. albuterol Yes [id number] 2.5mg Inhale 3 Univers 2.5 mg /3 8-27 mL every 4 ity of mL (0.083 00:00: (four) [place] %) 00 hours as Medical nebulizer needed for Bran ch solution Wheezing or Shortness of Breath. albuterol Yes [id number] 2.5mg Inhale 3 Univers 2.5 mg /3 8-27 mL every 4 ity of mL (0.083 00:00: (four) [place] %) 00 hours as Medical nebulizer needed for Bran ch solution Wheezing or Shortness of Breath. albuterol Yes [id number] 2.5mg Inhale 3 Univers 2.5 mg /3 8-27 mL every 4 ity of mL (0.083 00:00: (four) [place] %) 00 hours as Medical nebulizer needed for Bran ch solution Wheezing or Shortness of Breath. albuterol Yes [id number] 2.5mg Inhale 3 Univers 2.5 mg /3 8-27 mL every 4 ity of mL (0.083 00:00: (four) [place] %) 00 hours as Medical nebulizer needed for Bran ch solution Wheezing or Shortness of Breath. albuterol 2021-0 Yes [id number] 2.5mg Inhale 3 Univers 2.5 mg /3 8-27 mL every 4 ity of mL (0.083 00:00: ([facility]) [place] %) 00 hours as Medical nebulizer needed for Bran ch solution Wheezing or Shortness of Breath. albuterol 2020-0 Yes [id number] 2.5mg Inhale 3 Univers 2.5 mg /3 8-27 mL every 4 ity of mL (0.083 00:00: ([facility]) [place] %) 00 hours as Medical nebulizer needed for Bran ch solution Wheezing or Shortness of Breath. albuterol 2020-0 Yes [id number] 2.5mg Inhale 3 Univers 2.5 mg /3 8-27 mL every 4 ity of mL (0.083 00:00: ([facility]) [place] %) 00 hours as Medical nebulizer needed for Bran ch solution Wheezing or Shortness of Breath. albuterol 2020-0 Yes [id number] 2.5mg Inhale 3 Univers 2.5 mg /3 8-27 mL every 4 ity of mL (0.083 00:00: ([facility]) [place] %) 00 hours as Medical nebulizer needed for Bran ch solution Wheezing or Shortness of Breath. albuterol 2020-0 Yes [id number] 2.5mg Inhale 3 Univers 2.5 mg /3 8-27 mL every 4 ity of mL (0.083 00:00: (four) [place] %) 00 hours as Medical nebulizer needed for Bran ch solution Wheezing or Shortness of Breath. albuterol 2020-0 Yes [id number] 2.5mg Inhale 3 Univers 2.5 mg /3 8-27 mL every 4 ity of mL (0.083 00:00: (four) [place] %) 00 hours as Medical nebulizer needed for Bran ch solution Wheezing or Shortness of Breath. albuterol 2020-0 Yes [id number] 2.5mg Inhale 3 Univers 2.5 mg /3 8-27 mL every 4 ity of mL (0.083 00:00: (four) [place] %) 00 hours as Medical nebulizer needed for Bran ch solution Wheezing or Shortness of Breath. albuterol 2020-0 Yes [id number] 2.5mg Inhale 3 Univers 2.5 mg /3 8-27 mL every 4 ity of mL (0.083 00:00: (four) [place] %) 00 hours as Medical nebulizer needed for Bran ch solution Wheezing or Shortness of Breath. albuterol 2020-0 Yes [id number] 2.5mg Inhale 3 Univers 2.5 mg /3 8-27 mL every 4 ity of mL (0.083 00:00: (four) [place] %) 00 hours as Medical nebulizer needed for Bran ch solution Wheezing or Shortness of Breath. albuterol 2020-0 Yes [id number] 2.5mg Inhale 3 Univers 2.5 mg /3 8-27 mL every 4 ity of mL (0.083 00:00: (four) [place] %) 00 hours as Medical nebulizer needed for Bran ch solution Wheezing or Shortness of Breath. albuterol 2020-0 Yes [id number] 2.5mg Inhale 3 Univers 2.5 mg /3 [...] (KEPPRA 8-03 mouth. ity of ORAL) 19:45: [address] levetiracet 2020-0 Yes Take by Uni vers am (KEPPRA 8-03 mouth. ity of ORAL) 19:45: [address] levetiracet 2020-0 Yes Take by Uni vers am (KEPPRA 8-03 mouth. ity of ORAL) 19:45: [address] levetiracet 2020-0 Yes Take by Uni vers am (KEPPRA 8-03 mouth. ity of ORAL) 19:45: [address] levetiracet 2021-0 Yes Take by Uni vers am (KEPPRA 02-19 mouth. ity of ORAL) 19:45: [address] levetiracet Yes Take by Uni vers am (KEPPRA 02-19 mouth. ity of ORAL) 19:45: [address] LISINOPRIL- 2020- No Take by Un lois HYDROCHLORO 02-19 mouth. ity o f THIAZIDE 19:41: 00:00 [place] ORAL 15 :00 [facility] dicyclomine 2020- No 20mg [...] Medica l NaCl 0.9% 02/19/21 at [facility] h (NS) 50 mL 1415, [...] at Branch 1200, MICHAEL iopamidol 2020- No [id number] 100mL 100 mL, Univers (ISOVUE 8 08-03 Intravenou ity o f 370-500 mL) 16:35: 16:45 s, ONCE, 1 [place] injection 00 :00 dose, Tue Medic al 100 mL 02/19/21 at Branch 1145, Routine levetiracet 0 Yes Take by Uni vers am (KEPPRA 8-03 mouth. ity of ORAL) 14:45: [address] levetiracet 0 Yes Take by Uni vers am (KEPPRA 8-03 mouth. ity of ORAL) 14:45: [address] levetiracet 2020-0 Yes Take by Uni vers am (KEPPRA 8-03 mouth. ity of ORAL) 14:45: [address] levetiracet 0 Yes Take by Uni vers am (KEPPRA 8-03 mouth. ity of ORAL) 14:45: [address] levetiracet 0 Yes Take by Uni vers am (KEPPRA 8-03 mouth. ity of ORAL) 14:45: [address] proMETHazin 2020-0 Yes [id number] 25mg Take 1 Univers e 25 mg 8-03 tablet by ity of tablet 00:00: mouth [place] 00 every 6 Medical (six) Branch hours as needed for Nausea and Vomiting (N/V). dicyclomine 2020-0 Yes [id number] 20mg Take 1 Univers 20 mg 8-03 tablet by ity of tablet 00:00: mouth 4 00 (four) Medical times Branch daily as needed for Abdominal pain. proMETHazin 2020-0 Yes [id number] 25mg Take 1 Univers e 25 mg 8-03 tablet by ity of tablet 00:00: mouth [place] 00 every 6 Medical (six) Branch hours as needed for Nausea and Vomiting (N/V). dicyclomine 2020-0 Yes [id number] 20mg Take 1 Univers 20 mg 8-03 tablet by ity of tablet 00:00: mouth 4 00 (four) Medical times Branch daily as needed for Abdominal pain. proMETHazin 2020-0 Yes [id number] 25mg Take 1 Univers e 25 mg 8-03 tablet by ity of tablet 00:00: mouth [place] 00 every 6 Medical (six) Branch hours as needed for Nausea and Vomiting (N/V). dicyclomine 2021-0 Yes [id number] 20mg Take 1 Univers 20 mg 8-03 tablet by ity of tablet 00:00: mouth 4 (four) Medical times Branch daily as needed for Abdominal pain. proMETHazin 2020-0 Yes [id number] 25mg Take 1 Univers e 25 mg 8-03 tablet by ity of tablet 00:00: mouth [place] 00 every 6 Medical (six) Branch hours as needed for Nausea and Vomiting (N/V). dicyclomine 2020-0 Yes [id number] 20mg Take 1 Univers 20 mg 8-03 tablet by ity of tablet 00:00: mouth (four) Medical times Branch daily as needed for Abdominal pain. proMETHazin 2020-0 Yes [id number] 25mg Take 1 Univers e 25 mg 8-03 tablet by ity of tablet 00:00: mouth 00 every 6 Medical (six) Branch hours as needed for Nausea and Vomiting (N/V). dicyclomine 2020-0 Yes [id number] 20mg Take 1 Univers 20 mg 8-03 tablet by ity of tablet 00:00: mouth (four) Medical times Branch daily as needed for Abdominal pain. proMETHazin 2020-0 Yes [id number] 25mg Take 1 Univers e 25 mg 8-03 tablet by ity of tablet 00:00: mouth 00 every 6 Medical (six) Branch hours as needed for Nausea and Vomiting (N/V). dicyclomine 2020-0 Yes [id number] 20mg Take 1 Univers 20 mg 8-03 tablet by ity of tablet 00:00: mouth (four) Medical times Branch daily as needed for Abdominal pain. proMETHazin 202-0 Yes [id number] 25mg Take 1 Univers e 25 mg 8-03 tablet by ity of tablet 00:00: mouth [place] 00 every 6 Medical (six) Branch hours as needed for Nausea and Vomiting (N/V). dicyclomine 2021-0 Yes [id number] 20mg Take 1 [facility] 20 mg 8-03 tablet by ity of tablet 00:00: mouth (four) Medical times Branch daily as needed for Abdominal pain. proMETHazin 202-0 Yes [id number] 25mg Take 1 Univers e 25 mg 8-03 tablet by ity of tablet 00:00: mouth [place] 00 every 6 Medical (six) Branch hours as needed for Nausea and Vomiting (N/V). dicyclomine 2020-0 Yes [id number] 20mg Take 1 Univers 20 mg 8-03 tablet by ity of tablet 00:00: mouth 4 [place] 00 (four) Medical times Branch daily as needed for Abdominal pain. proMETHazin 2020-0 Yes [id number] 25mg Take 1 Univers e 25 mg 8-03 tablet by ity of tablet 00:00: mouth [place] 00 every 6 Medical (six) Branch hours as needed for Nausea and Vomiting (N/V). dicyclomine 2020-0 Yes [id number] 20mg Take 1 Univers 20 mg 8-03 tablet by ity of tablet 00:00: mouth 4 [place] 00 (four) Medical times Branch daily as needed for Abdominal pain. proMETHazin 2020-0 Yes [id number] 25mg Take 1 Univers e 25 mg 8-03 tablet by ity of tablet 00:00: mouth [place] 00 every 6 Medical (six) Branch hours as needed for Nausea and Vomiting (N/V). dicyclomine 2020-0 Yes [id number] 20mg Take 1 Univers 20 mg 8-03 tablet by ity of tablet 00:00: mouth 4 [place] 00 (four) Medical times Branch daily as needed for Abdominal pain. proMETHazin 2020-0 Yes [id number] 25mg Take 1 Univers e 25 mg 8-03 tablet by ity of tablet 00:00: mouth [place] 00 every 6 Medical (six) Branch hours as needed for Nausea and Vomiting (N/V). dicyclomine 2020-0 Yes [id number] 20mg Take 1 Univers 20 mg 8-03 tablet by ity of tablet 00:00: mouth 4 [place] 00 (four) Medical times Branch daily as needed for Abdominal pain. proMETHazin 2020-0 Yes [id number] 25mg Take 1 Univers e 25 mg 8-03 tablet by ity of tablet 00:00: mouth [place] 00 every 6 Medical (six) Branch hours as needed for Nausea and Vomiting (N/V). dicyclomine 2020-0 Yes [id number] 20mg Take 1 Univers 20 mg 8-03 tablet by ity of tablet 00:00: mouth 4 (four) Medical times Branch daily as needed for Abdominal pain. proMETHazin 2020-0 Yes [id number] 25mg Take 1 Univers e 25 mg 8-03 tablet by ity of tablet 00:00: mouth [place] 00 every 6 Medical (six) Branch hours as needed for Nausea and Vomiting (N/V). dicyclomine 2020-0 Yes [id number] 20mg Take 1 Univers 20 mg 8-03 tablet by ity of tablet 00:00: mouth 00 (four) Medical times Branch daily as needed for Abdominal pain. proMETHazin 2020-0 Yes [id number] 25mg Take 1 Univers e 25 mg 8-03 tablet by ity of tablet 00:00: mouth [place] 00 every 6 Medical (six) Branch hours as needed for Nausea and Vomiting (N/V). dicyclomine 2020-0 Yes [id number] 20mg Take 1 [facility] 20 mg 8-03 tablet by ity of tablet 00:00: mouth (four) Medical times Branch daily as needed for Abdominal pain. proMETHazin 2020-0 Yes [id number] 25mg Take 1 Univers e 25 mg 8-03 tablet by ity of tablet 00:00: mouth [place] 00 every 6 Medical (six) Branch hours as needed for Nausea and Vomiting (N/V). dicyclomine 2020-0 Yes [id number] 20mg Take 1 Univers 20 mg 8-03 tablet by ity of tablet 00:00: mouth (four) Medical times Branch daily as needed for Abdominal pain. proMETHazin 2020-0 Yes [id number] 25mg Take 1 Univers e 25 mg 8-03 tablet by ity of tablet 00:00: mouth [place] 00 every 6 Medical (six) Branch hours as needed for Nausea and Vomiting (N/V). dicyclomine 2020-0 Yes [id number] 20mg Take 1 Univers 20 mg 8-03 tablet by ity of tablet 00:00: mouth 4 00 (four) Medical times Branch daily as needed for Abdominal pain. proMETHazin 2020-0 Yes [id number] 25mg Take 1 Univers e 25 mg 8-03 tablet by ity of tablet 00:00: mouth [place] 00 every 6 Medical (six) Branch hours as needed for Nausea and Vomiting (N/V). dicyclomine Yes [id number] 20mg Take 1 Univers 20 mg 02-19 tablet by ity of tablet 00:00: mouth 4 00 (four) Medical times Branch daily as needed for Abdominal pain. ZONISAMIDE Yes TAKE 1 Unive rs 100 mg 11-15 CAPSULE BY ity of capsule 00:00: MOUTH 00 TWICE A Medical DAY Branch ZONISAMIDE 2020- No TAKE 1 Univ ers 100 mg -17 03- CAPSULE BY ity of capsule 00:00: 00:00 MOUTH [place] 00 :00 TWICE A Medical DAY Branch ondansetron Yes 4mg Take 4 mg U nivers (ZOFRAN) 4 7-24 by mouth ity o f mg tablet 20:05: every 8 (eight) Medical hours as Branch needed. pantoprazol Yes 40mg Take 40 mg Univers e 7-24 by mouth ity of (PROTONIX) 20:05: daily. [place] 40 mg EC Medical tablet Branch ondansetron Yes 4mg Take 4 mg U nivers (ZOFRAN) 4 7-24 by mouth ity o f mg tablet 20:05: every 8 (eight) Medical hours as Branch needed. pantoprazol 0 Yes 40mg Take 40 mg Univers e 7-24 by mouth ity of (PROTONIX) 20:05: daily. [place] 40 mg EC Medical tablet Branch LISINOPRIL- [...] by mouth ity of (PROTONIX) 20:05: daily. [place] 40 mg EC Medical tablet Branch ondansetron [...] 7-24 by mouth ity of 19:58: daily. [place] [address] Medical Branch loratadine 0 Yes Take by Univ ers (CLARITIN 7-24 mouth ity of LIQUI-GEL) 19:58: daily. [place] 10 mg 14 Medical capsule Branch MULTIVITAMI Yes 1{tbl} Take 1 Tab Univers N ORAL 7-24 by mouth ity of 19:58: daily. [place] [address] Medical Branch loratadine 0 Yes Take by Univ ers (CLARITIN 7-24 mouth ity of LIQUI-GEL) 19:58: daily. [place] 10 mg 14 Medical capsule Branch MULTIVITAMI Yes 1{tbl} Take 1 Tab Univers N ORAL 7-24 by mouth ity of 19:58: daily. [place] [address] Medical Branch loratadine Yes Take by Univ ers (CLARITIN 7-24 mouth ity of LIQUI-GEL) 19:58: daily. [place] 10 mg 14 Medical capsule Branch MULTIVITAMI Yes 1{tbl} Take 1 Tab Univers N ORAL 7-24 by mouth ity of 19:58: daily. [place] [address] Medical Branch loratadine Yes Take by Univ ers (CLARITIN 7-24 mouth ity of LIQUI-GEL) 19:58: daily. [place] 10 mg 14 Medical capsule Branch MULTIVITAMI Yes 1{tbl} Take 1 Tab Univers N ORAL 7-24 by mouth ity of 19:58: daily. [place] [address] Medical Branch loratadine Yes Take by Univ ers (CLARITIN 7-24 mouth ity of LIQUI-GEL) 19:58: daily. [place] 10 mg 14 Medical capsule Branch MULTIVITAMI Yes 1{tbl} Take 1 Tab Univers N ORAL 7-24 by mouth ity of 19:58: daily. [place] [address] Medical Branch loratadine 0 Yes Take by Univ ers (CLARITIN 7-24 mouth ity of LIQUI-GEL) 19:58: daily. [place] 10 mg 14 Medical capsule Branch MULTIVITAMI Yes 1{tbl} Take 1 Tab Univers N ORAL 7-24 by mouth ity of 19:58: daily. [place] [address] Medical Branch loratadine 0 Yes Take by Univ ers (CLARITIN 7-24 mouth ity of LIQUI-GEL) 19:58: daily. [place] 10 mg 14 Medical capsule Branch ondansetron 2018-0 Yes 4mg Take 4 mg U nivers (ZOFRAN) 4 7-24 by mouth ity o f mg tablet 15:05: every 8 [place] (eight) Medical hours as Branch needed. pantoprazol 2018-0 Yes 40mg Take 40 mg Univers e 7-24 by mouth ity of (PROTONIX) 15:05: daily. [place] 40 mg EC 01 Medical tablet Branch ondansetron 2018-0 Yes 4mg Take 4 mg U nivers (ZOFRAN) 4 7-24 by mouth ity o f mg tablet 15:05: every 8 [place] [address] (eight) Medical hours as Branch needed. pantoprazol 2018-0 Yes 40mg Take 40 mg Univers e 7-24 by mouth ity of (PROTONIX) 15:05: daily. [place] 40 mg EC 01 Medical tablet Branch ondansetron 2018-0 Yes 4mg Take 4 mg U nivers (ZOFRAN) 4 7-24 by mouth ity o f mg tablet 15:05: every 8 [place] [address] (eight) Medical hours as Branch needed. pantoprazol 2018-0 Yes 40mg Take 40 mg Univers e 7-24 by mouth ity of (PROTONIX) 15:05: daily. [place] 40 mg EC 01 Medical tablet Branch ondansetron 2018-0 Yes 4mg Take 4 mg U nivers (ZOFRAN) 4 7-24 by mouth ity o f mg tablet 15:05: every 8 [place] [address] (eight) Medical hours as Branch needed. pantoprazol 2018-0 Yes 40mg Take 40 mg Univers e 7-24 by mouth ity of (PROTONIX) 15:05: daily. [place] 40 mg EC 01 Medical tablet Branch ondansetron 2018-0 Yes 4mg Take 4 mg U nivers (ZOFRAN) 4 7-24 by mouth ity o f mg tablet 15:05: every 8 [place] [address] (eight) Medical hours as Branch needed. pantoprazol 2018-0 Yes 40mg Take 40 mg Univers e 7-24 by mouth ity of (PROTONIX) 15:05: daily. [place] 40 mg EC 01 Medical tablet Branch [...] 7-24 by mouth ity of 14:58: daily. [place] [address] Medical Branch loratadine Yes Take by [facility] ers (CLARITIN 7-24 mouth ity of LIQUI-GEL) 14:58: daily. [place] 10 mg 14 Medical capsule Branch MULTIVITAMI Yes 1{tbl} Take 1 Tab Univers N ORAL 7-24 by mouth ity of 14:58: daily. [place] [address] Medical Branch loratadine Yes Take by [facility] ers (CLARITIN 7-24 mouth ity of LIQUI-GEL) 14:58: daily. [place] 10 mg 14 Medical capsule Branch MULTIVITAMI Yes 1{tbl} Take 1 Tab Univers N ORAL 7-24 by mouth ity of 14:58: daily. [place] [address] Medical Branch loratadine Yes Take by [facility] ers (CLARITIN 7-24 mouth ity of LIQUI-GEL) 14:58: daily. [place] 10 mg 14 Medical capsule Branch MULTIVITAMI Yes 1{tbl} Take 1 Tab Univers N ORAL 7-24 by mouth ity of 14:58: daily. [place] [id number] Medical Branch loratadine Yes Take by [facility] ers (CLARITIN 7-24 mouth ity of LIQUI-GEL) 14:58: daily. [place] 10 mg 14 Medical capsule Branch MULTIVITAMI Yes 1{tbl} Take 1 Tab Univers N ORAL 7-24 by mouth ity of 14:58: daily. [place] [id number] Medical Branch loratadine Yes Take by [facility] ers (CLARITIN 7-24 mouth ity of [...] Immunizations Ordered Filled Immunization Date Status Comments [facility] e Immunization Name Name SARS-COV-2 COVID-19 2022-02-19 [...] Unive rsity of PFIZER VACCINE 00:00:00 [place] [facility] kwame Branch SARS-COV-2 COVID-19 2021-05-24 Completed Unive rsity of PFIZER VACCINE 00:00:00 [place] [facility] Branch SARS-COV-2 COVID-19 2021-05-24 Completed Unive rsity of PFIZER VACCINE 00:00:00 [place] [facility] SARS-COV-2 COVID-19 2021-05-24 Completed Unive rsity of PFIZER VACCINE 00:00:00 [place] [facility] SARS-COV-2 COVID-19 2021-05-24 Completed Unive rsity of PFIZER VACCINE 00:00:00 [place] [facility] kwame Branch SARS-COV-2 COVID-19 2021-05-24 Completed Unive rsity of PFIZER VACCINE 00:00:00 [place] [facility] SARS-COV-2 COVID-19 2021-05-24 Completed Unive rsity of PFIZER VACCINE 00:00:00 [place] [facility] kwame Branch SARS-COV-2 COVID-19 2021-05-24 Completed Unive rsity of PFIZER VACCINE 00:00:00 [facility] Branch SARS-COV-2 COVID-19 2021-05-24 Completed Unive rsity of PFIZER VACCINE 00:00:00 [facility] Branch SARS-COV-2 COVID-19 2021-05-03 Completed Unive rsity of PFIZER VACCINE 00:00:00 [facility] [place] SARS-COV-2 COVID-19 2021-05-03 Completed Unive rsity of PFIZER VACCINE 00:00:00 [facility] [place] SARS-COV-2 COVID-19 2021-05-03 Completed Unive rsity of PFIZER VACCINE 00:00:00 [facility] [place] SARS-COV-2 COVID-19 2021-05-03 Completed Unive rsity of PFIZER VACCINE 00:00:00 [facility] [place] SARS-COV-2 COVID-19 2021-05-03 Completed Unive rsity of PFIZER VACCINE 00:00:00 [facility] [place] SARS-COV-2 COVID-19 2021-05-03 Completed Unive rsity of PFIZER VACCINE 00:00:00 [facility] [place] SARS-COV-2 COVID-19 2021-05-03 Completed Unive rsity of PFIZER VACCINE 00:00:00 [facility] [place] SARS-COV-2 COVID-19 2021-05-03 Completed Unive rsity of PFIZER VACCINE 00:00:00 [facility] [place] SARS-COV-2 COVID-19 2021-05-03 Completed Unive rsity of PFIZER VACCINE 00:00:00 [facility] [place] SARS-COV-2 COVID-19 2021-05-03 Completed Unive rsity of PFIZER VACCINE 00:00:00 [facility] [place] Vital Signs Vital Name Observation Time Observation Value Comments Source Heart rate 2022-08-02 02:02:00 108 /min [facility] Respiratory rate 2022-08-02 02:02:00 28 /min [facility] Oxygen saturation in 2022-08-02 02:02:00 97 /min [facility] Arterial blood by [facility] Pulse oximetry [place] Body temperature 2022-08-02 01:00:00 36.44 Radha Univ ersity of [facility] Systolic blood 2022-08-01 23:29:00 145 mm[Hg] Univer sity of pressure [facility] Diastolic blood 2022-08-01 23:29:00 103 mm[Hg] Unive rsity of pressure [facility] Body weight 2022-08-01 09:16:00 97.977 kg [facility] BMI 2022-08-01 09:16:00 38.26 kg/m2 [facility] [place] [facility] Body height 2022-07-31 21:54:00 160 cm [facility] [place] [facility] Diastolic blood 2022-05-08 16:40:00 96 mm[Hg] Unive rsity of pressure [place] [facility] Heart rate 2022-05-08 16:40:00 112 /min [facility] [place] [facility] Body temperature 2022-05-08 16:40:00 36.78 Radha Univ ersity [facility] [place] [facility] Respiratory rate 2022-05-08 16:40:00 18 /min Univ ersity [facility] [place] [facility] Oxygen saturation in 2022-05-08 16:40:00 94 /min University of Arterial blood by [facility] Pulse oximetry Branch Systolic blood 2022-05-08 16:40:00 146 mm[Hg] Univer sity of pressure [place] [facility] Body height 2022-05-05 23:44:00 160 cm [facility] [place] [facility] Body weight 2022-05-05 23:37:00 81.647 kg [facility] [place] [facility] BMI 2022-05-05 23:37:00 31.89 kg/m2 [facility] [place] [facility] Systolic blood 2022-04-15 18:52:00 104 mm[Hg] Univer sity of pressure [place] [facility] Diastolic blood 2022-04-15 18:52:00 82 mm[Hg] Unive rsity of pressure [place] [facility] Heart rate 2022-04-15 18:52:00 114 /min [facility] [place] [facility] Oxygen saturation in 2022-04-15 18:52:00 98 /min University of Arterial blood by [facility] Pulse oximetry Branch Body temperature 2022-04-15 16:14:00 36.28 Radha Univ ersity of [place] [facility] Respiratory rate 2022-04-15 16:14:00 17 /min Univ ersity of [place] [facility] Body height 2022-04-13 21:08:00 160 cm [facility] [place] [facility] Body weight 2022-04-13 21:08:00 91.173 kg [facility] [place] [facility] BMI 2022-04-13 21:08:00 35.61 kg/m2 [facility] [place] [facility] Systolic blood 2021-11-23 21:30:00 132 mm[Hg] Univer sity of pressure [place] [facility] Diastolic blood 2021-11-23 21:30:00 76 mm[Hg] Unive rsity of pressure [place] [facility] Heart rate 2021-11-23 21:30:00 95 /min [facility] [place] [facility] Respiratory rate 2021-11-23 21:30:00 13 /min Univ ersity of [place] [facility] Oxygen saturation in 2021-11-23 21:30:00 97 /min University of Arterial blood by [place] [employer] kwame Pulse oximetry Branch Body temperature 2021-11-23 20:15:00 37.56 Radha Univ ersity of [place] [facility] Systolic blood 2021-03-17 03:00:00 117 mm[Hg] Univer sity of pressure [place] [facility] Diastolic blood 2021-03-17 03:00:00 76 mm[Hg] Unive rsity of pressure [place] [facility] Heart rate 2021-03-17 03:00:00 104 /min [facility]i [facility] [place] [facility] Respiratory rate 2021-03-17 03:00:00 28 /min Univ ersity of [place] [facility] Oxygen saturation in 2021-03-17 03:00:00 96 /min University of Arterial blood by [place] [employer] kwame Pulse oximetry Branch Body temperature 2021-03-17 00:39:00 37.11 Radha Univ ersity [facility] [place] [facility] Body height 2021-03-17 00:39:00 160 cm [facility] [place] [facility] Body weight 2021-03-17 00:39:00 58.968 kg [facility] [place] [facility] BMI 2021-03-17 00:39:00 23.03 kg/m2 [facility] [place] [facility] Systolic blood 2021-03-15 00:14:00 149 mm[Hg] Univer sity of pressure [place] [facility] Diastolic blood 2021-03-15 00:14:00 78 mm[Hg] Unive rsity of pressure [place] [facility] Heart rate 2021-03-15 00:14:00 100 /min [facility] [place] [facility] Body temperature 2021-03-15 00:14:00 37.33 Radha Univ ersity of [place] [facility] Respiratory rate 2021-03-15 00:14:00 24 /min Univ ersity of [place] [facility] Body height 2021-03-15 00:14:00 160 cm [facility] [place] [facility] Body weight 2021-03-15 00:14:00 58.968 kg [facility] [place] [facility] BMI 2021-03-15 00:14:00 23.03 kg/m2 [facility] [place] [facility] Oxygen saturation in 2021-03-15 00:14:00 98 /min University of Arterial blood by [facility] Pulse oximetry Branch Systolic blood 2021-02-19 18:00:00 131 mm[Hg] Univer sity of pressure [place] [facility] [place] Diastolic blood 2021-02-19 18:00:00 80 mm[Hg] Unive rsity of [facility] Heart rate 2021-02-19 18:00:00 83 /min Universi ty of [facility] Respiratory rate 2021-02-19 18:00:00 18 /min [facility] O[facility] saturation in 2021-02-19 18:00:00 100 /min University of Arterial blood by [facility] Pulse oximetry Branch Body temperature 2021-02-19 15:47:00 37 Radha [facility] Body height 2021-02-19 15:47:00 160 cm Universi ty [facility] [place] [facility] [place] Body weight 2021-02-19 15:47:00 58.968 kg Universi ty [facility] [place] [facility] [place] BMI 2021-02-19 15:47:00 23.03 kg/m2 [facility] Respiratory rate 2022-08-03 14:40:00 18 /min [facility] Systolic blood 2022-08-03 12:13:00 112 mm[Hg] [facility] Diastolic blood 2022-08-03 12:13:00 77 mm[Hg] [facility] Heart rate 2022-08-03 12:13:00 115 /min [facility] Oxygen saturation in 2022-08-03 12:13:00 93 /min [facility] Arterial blood by Medical nter Pulse oximetry Body temperature 2022-08-03 12:00:00 36.83 Radha [facility] Body height 2022-08-02 21:52:00 160.2 cm [facility] Body weight 2022-08-02 21:52:00 95 kg [facility] BMI 2022-08-02 21:52:00 37.02 kg/m2 [facility] BP Systolic 2022-07-24 13:31:00 136 mm[Hg] BP [...] Unknown, Hl7 Doctor [facility] 05:03:32 [facility] ECG 12-LEAD 2022-08-03 Unknown, Hl7 Doctor [facility] 05:03:32 [facility] ECG 12-LEAD 2022-08-03 Unknown, Hl7 Doctor [facility] 05:03:32 [facility] LIPID PANEL 2022-08-02 Donaldo Hightower [facility] 21:14:00 [facility] TSH/FREE T4 IF INDICATED 2022-08-02 Donaldo Hightower [facility] 21:14:00 [facility] VITAMIN B12 2022-08-02 Donaldo Hightower [facility] 21:14:00 [facility] HEMOGLOBIN A1C 2022-08-[address] [facility] 21:14:00 [facility] COMPREHENSIVE METABOLIC PANEL 2022-08-02 Donaldo Hightower CH 21:14:00 [facility] CBC W/PLT COUNT & AUTO 2022-08-02 Donaldo Hightower [facility] DIFFERENTIAL 21:14:00 [facility] RPR 2022-08-[address] [facility] 21:14:00 [facility] HC LAB HIV-1 AG W/HIV-1&2 AB 2022-08-02 Donaldo Hightower [facility]I 21:14:00 [facility] C-REACTIVE PROTEIN 2022-08-[address] [facility] 21:14:00 [facility] CBC W/PLT COUNT & AUTO 2022-08-02 Donaldo Hightower [facility] DIFFERENTIAL 21:14:00 [facility] EKG-SCANNED 2022-08-02 Eliceo Montanez [facility] 00:00:00 [facility] CT HEAD WO CONTRAST 2022-08-01 Lorenza Her o f 23:52:[address] [facility] GALV ONLY - INFLUENZA A B RSV 2022-08-01 LindseyLetitia hudson Un iversity of PCR 18:28:[address] [facility] TRANSTHORACIC ECHO (TTE) 2022-08-01 Tc [facility] ity of COMPLETE W/ CONTRAST 14:42:00 [facility] Branch MAGNESIUM 2022-08-01 Lorenza Her [place] of 10:42:[address] [facility] BASIC METABOLIC PANEL (NA, K, 2022-08-01 Lorenza Her Un iversity of CL, CO2, GLUCOSE, BUN, 10:42:00 [facility] ical CREATININE, [place]) Branch CBC WITH DIFF 2022-08-01 Lorenza Her [place] of 10:42:[address] [facility] N-TERMINAL PRO-BNP 2022-08-01 Tc [facility] of 10:42:[address] [facility] POCT GLUCOSE (AUTOMATED) 2022-08-[address] [facility] ity of 06:56:[address] [facility] CRITICAL CARE 2022-07-31 Sav Rondon [place] of 22:31:[address] [facility] URINALYSIS 2022-07-31 Sav Rondon [place] of 20:52:[address] [facility] URINE DRUG (IMMUNOASSAY) - 2022-07-31 [facility] COMPREHENSIVE DRUG SCREEN W/O 20:52:00 [facility] REFLEX Branch XR CHEST 1 VW 2022-07-31 Sav Rondon of 18:45:[address] [facility] LIPASE 2022-07-31 Sav Rondon [place] of 17:58:[address] [facility] TROPONIN I 2022-07-31 Sav Rondon [place] of 17:58:[address] [facility] COMP. METABOLIC PANEL (71506) 2022-07-31 Sav Rondon iversity of 17:58:[address] [facility] CBC WITH DIFF 2022-07-31 Sav Rondon of 17:58:[address] [facility] PROTHROMBIN TIME / INR 2022-07-31 Sav Rondonit y of 17:58:[address] [facility] ACTIVATED PARTIAL THRMPLAS 2022-07-31 Sav Rondon rsity of DAVID 17:58:[address] [facility] N-TERMINAL PRO-BNP 2022-07-31 Sav Rondon [place] of 17:58:[address] [facility] HB ECG ROUTINE & RHYTHM STRIP 2022-07-31 Sav Rondon iversity of 17:46:[address] [facility] NOTICE OF PRIVACY PRACTICES 2022-07-31 Doctor Unassigned, U niversity of 17:35:[address] [facility] CONSENT/REFUSAL FOR DIAGNOSIS 2022-07-31 Doctor Unassigned, University of AND TREATMENT 17:35:[address] [facility] PHOSPHORUS 2022-05-08 Shefali [facility] of 05:51:[address] [facility] MAGNESIUM 2022-05-08 YvesTirado, [facility] of 05:51:[address] [facility] BASIC METABOLIC PANEL (NA, K, 2022-05-08 Shefali, Gaastra U niversity of CL, CO2, GLUCOSE, BUN, 05:51:00 [place] [facility] ical CREATININE, [place]) Branch CBC WITH DIFF 2022-05-08 Shefali [facility] of 05:51:[address] [facility] BASIC METABOLIC PANEL (NA, K, 2022-05-07 [facility] of CL, CO2, GLUCOSE, BUN, 07:09:00 Shailesh [facility] ica CREATININE, CA) Branch CBC WITH DIFF 2022-05-07 [facility] of 07:09:00 [facility] POCT GLUCOSE (AUTOMATED) 2022-05-07 Brandyn Mcfarlane of 01:16:[address] [facility] HB ABO GROUPING 2022-05-06 Shaun [facility] of 05:07:00 [facility] BASIC METABOLIC PANEL (NA, K, 2022-05-06 Shefali, Azeem U niversity of CL, CO2, GLUCOSE, BUN, 05:04:00 [place] [facility] ical CREATININE, [place]) Branch CBC WITH DIFF 2022-05-06 Shefali [facility] of 05:04:[address] [facility] KEPPRA (LEVETIRACETAM) 2022-05-06 [facility] of 05:04[facility] [facility] MR LUMBAR SPINE WO CONTRAST 2022-05-06 Ender Monet U niversity of 02:54:[address] [facility] ELECTROENCEPHALOGRAM 2022-05-06 Abdulaziz John Naa ty of 00:00:[address] [facility] BASIC METABOLIC PANEL (NA, K, 2022-05-05 [facility] of CL, CO2, GLUCOSE, BUN, 07:57:00 [facility] ica CREATININE, [place]) Branch CBC WITH DIFF 2022-05-05 [facility] of 07:57:00 [facility] PROTHROMBIN TIME / INR 2022-05-05 [facility] ersity of 07:57:00 [facility] ACTIVATED PARTIAL THRMPLAS 2022-05-05 [facility] DAVID 07:57:00 [facility] FIBRINOGEN 2022-05-05 [facility] of 07:57:00 [facility] EMERGENCY SERVICES AGREEMENTS 2022-05-04 Doctor Unassigned, University of AND AUTHORIZATIONS 05:01:[address] [facility] VITAMIN D, 25-OH 2022-04-15 Tre Sen [place] of 16:53:[address] [facility] MR THORACIC SPINE WO CONTRAST 2022-04-15 Soumya Chua Un iversity of 11:56:[address] [facility] MR CERVICAL SPINE WO CONTRAST 2022-04-15 Soumya Chua Un iversity of 11:20:[address] [facility] BASIC METABOLIC PANEL (NA, K, 2022-04-15 Charmaine Morataya Un iversity of CL, CO2, GLUCOSE, BUN, 10:36:00 [facility] ical CREATININE, [place]) Branch TEST, URINE 2022-04-15 [facility] of 04:39:[address] [facility] URINE DRUG (IMMUNOASSAY) - 2022-04-15 [facility] rsity of COMPREHENSIVE DRUG SCREEN 04:39:[address] [facility] URINALYSIS 2022-04-15 [facility] of 04:39:[address] [facility] TRANSTHORACIC ECHO (TTE) 2022-04-14 [facility] ity of COMPLETE W/ CONTRAST 16:37:03 [facility] KEPPRA (LEVETIRACETAM) 2022-04-14 [facility] y of 15:30:00 [facility] Branch MAGNESIUM 2022-04-14 [facility] of 10:03:[address] [facility] BASIC METABOLIC PANEL (NA, K, 2022-04-14 [facility] ivers[facility] of CL, CO2, GLUCOSE, BUN, 10:03:00 [place] [facility] ical CREATININE, [place]) Branch MR LUMBAR SPINE WO CONTRAST 2022-04-14 [facility] ersity of 02:48:[address] [facility] MR STROKE BRAIN WO CONTRAST 2022-04-14 [facility] ersity of 02:29:[address] [facility] CT STROKE ANGIOGRAM HEAD 2022-04-13 Sapna Vargas [facility] ersity of 18:40:[address] [facility] CT STROKE ANGIOGRAM NECK 2022-04-13 Sapna Vargas [facility] ersity of 18:40:[address] [facility] CT STROKE HEAD WO CONTRAST 2022-04-13 Sapna Vargas iversity of 18:36:[address] [facility] TROPONIN I 2022-04-13 Sapna Vargas [place] of 18:17:[address] [facility] THYROID STIMULATING HORMONE 2022-04-13 [facility] ersity of 18:17:[address] [facility] BASIC METABOLIC PANEL (NA, K, 2022-04-13 Sapna Vargas [place] of CL, CO2, GLUCOSE, BUN, 18:17:00 [place] [facility] ical CREATININE, [place]) Branch LIPID PANEL ([id number])(TOTAL 2022-04-13 [facility] sit of CHOLESTEROL, TRIGLYCERIDES, 18:17:00 [facility] HDL) Branch CBC WITHOUT DIFF 2022-04-13 Sapna Vargas [place] o f 18:17:[address] [facility] GLYCOSYLATED HEMOGLOBIN (A1C) 2022-04-13 John Chuaena Un iversity of 18:17:[address] [facility] PROTHROMBIN TIME / INR 2022-04-13 Sapna Vargas [facility] sity of 18:17:[address] [facility] ACTIVATED PARTIAL THRMPLAS 2022-04-13 Sapna Vargas iversity of DAVID 18:17:[address] [facility] COVID-19 (ID NOW RAPID 2022-04-13 Sapna Vargas [facility] sity of TESTING) 18:17:[address] [facility] LAB ONLY COVID INTERPRETATION 2022-04-13 Sapna Vargas [facility] 18:17:[address] [facility] HB ECG ROUTINE & RHYTHM STRIP 2022-04-13 Sapna Vargas [facility] 18:15:[address] [facility] CONSENT/REFUSAL FOR DIAGNOSIS 2022-04-13 Doctor Unassigned, [facility] AND TREATMENT 18:05:[address] [facility] HOSPITAL ADMISSION 2022-04-13 Doctor Unassigned, [facility] 05:01:[address] [facility] SARS-COV-2 COVID-19 VACCINE 2022-02-19 Doctor Unassigned, U niversity of 12 YRS+,0.3ML,IM (PFIZER - 15:21:12 [place] [facility] URINE DRUG (IMMUNOASSAY) - 2021-11-23 Nichelle Allison U niversity of COMPREHENSIVE DRUG SCREEN W/O 21:21:00 [place] [facility] HEAD WO CONTRAST 2021-11-23 Nichelle Allison [facility] ty of 20:58:[address] [facility] POCT TEST 2021-11-23 [facility] ty of 20:46:[address] [facility] URINALYSIS 2021-11-23 [facility] o f 20:43:[address] [facility] LIPASE 2021-11-23 [facility] 20:27[facility] [facility] TROPONIN I 2021-11-23 [facility] o f 20:27:[address] [facility] COMP. METABOLIC PANEL ([id number]) 2021-11-23 [facility] of 20:27:[address] [facility] CBC WITH DIFF 2021-11-23 [facility] o f 20:27:[address] [facility] POCT GLUCOSE (AUTOMATED) 2021-11-23 Doctor Ninassjulee, [facility] ersity of 20:15:[address] [facility] SARS-COV-2 COVID-19 2021-05-24 Doctor Unassigned, Universit y of VACCINE,0.3ML,IM (PFIZER) 14:23:[address] [facility] SARS-COV-2 COVID-19 2021-05-03 Doctor Unassigned, Universit y of VACCINE,0.3ML,IM (PFIZER) 14:59:[address] [facility] EMERGENCY SERVICES AGREEMENTS 2021-04-16 Doctor Unassigned, University of AND AUTHORIZATIONS 05:01:[address] [facility] URINALYSIS 2021-03-17 [facility] of 03:09:[address] [facility] XR CHEST 1 VW 2021-03-17 [facility] of 01:45:[address] [facility] TROPONIN I 2021-03-17 [facility] of 01:35:[address] [facility] COMP. METABOLIC PANEL ([id number]) 2021-03-17 Fabrice Chakraborty Un iversity of 01:35:[address] [facility] CBC WITH DIFF 2021-03-17 [facility] of 01:35:[address] [facility] N-TERMINAL PRO-BNP 2021-03-17 [facility] of 01:35:[address] [facility] COVID-19 (ID NOW RAPID 2021-03-17 [facility] y of TESTING) 00:58:[address] [facility] CONSENT/REFUSAL FOR DIAGNOSIS 2021-03-17 Doctor Unassigned, [facility] AND TREATMENT 00:32:[address] [facility] COVID-19 (ID NOW RAPID 2021-02-19 Anali Patel [facility] y of TESTING) 17:04:[address] [facility] CT ABDOMEN PELVIS W CONTRAST 2021-02-19 Anali Patel Uni versity of 16:41:[address] [facility] LIPASE 2021-02-19 Anali Patel [place] of 15:58:[address] [facility] COMP. METABOLIC PANEL ([id number]) 2021-02-19 Anali Patel Un iversity of 15:58:[address] [facility] CBC WITH DIFF 2021-02-19 Anali Patel [place] of 15:58:[address] [facility] URINALYSIS 2021-02-19 Anali Patel [place] of 15:58:[address] [facility] NOTICE OF PRIVACY PRACTICES 2021-02-19 Doctor Unassjulee, U niversity of 15:30:[address] [facility] CONSENT/REFUSAL FOR DIAGNOSIS 2021-02-19 Doctor Unassigned, University of AND TREATMENT 15:30:[address] [facility] Plan of Care Planned Activity Planned Date Details Comments Source Future Scheduled 2025-08-02 Lipid panel (procedure) [facility] Test 00:00:00 [code = 32398113] Medical Ce nter Future Scheduled 2025-08-02 Lipid panel (procedure) [facility] 00:00:00 [code = 18150912] Medical Ce nter Future Scheduled 2025-08-02 Lipid panel (procedure) [facility] 00:00:00 [code = 82178168] Medical Ce nter Future Scheduled 2025-08-02 Lipid panel (procedure) [facility] 00:00:00 [code = 42129191] Medical Ce nter Future Scheduled 2025-08-02 Lipid panel (procedure) [facility] 00:00:00 [code = 56059873] Medical Ce nter Future Scheduled 2025-08-02 Lipid panel (procedure) [facility] 00:00:00 [code = 92908266] Medical Ce nter Future Scheduled 2025-08-02 Lipid panel (procedure) [facility] 00:00:00 [code = 20738164] Medical Ce nter Future Scheduled 2023-03-[address] [facility] 00:00:00 (Season Ended) [code = Medic al Center INFLUENZA VACCINE (Season Ended)] Future Scheduled 2023-03-[address] [facility] 00:00:00 (Season Ended) [code = Medic al Center INFLUENZA VACCINE (Season Ended)] Future Scheduled 2023-03-[address] [facility] 00:00:00 (Season Ended) [code = Medic al Center INFLUENZA VACCINE (Season Ended)] Future Scheduled 2022-07-[address] [...] - Booster for Pfizer series)] Future Scheduled 2022-04-16 COVID-19 VACCINE (4 - [facility] Booster for Pfizer Medical C enter series) [code = COVID-19 VACCINE (4 - Booster for Pfizer series)] Future Scheduled 2022-04-16 COVID-19 VACCINE (4 - [facility]:00 Booster for Pfizer Medical C enter series) [code = COVID-19 VACCINE (4 - Booster for Pfizer series)] Future Scheduled 2022-04-16 COVID-19 VACCINE (4 - [facility] [...] cervix Medical C enter (procedure) [code = 740290388] Future Scheduled 1993-01-14 Screening for malignant [facility] 00:00:00 neoplasm of cervix Medical C enter (procedure) [code = 652719812] Future Scheduled 1993-01-14 Screening for malignant [facility] 00:00:00 neoplasm of cervix Medical C enter (procedure) [code = 934243890] Future Scheduled 1993-01-14 Screening for malignant [facility] 00:00:00 neoplasm of cervix Medical C enter (procedure) [code = 115221211] Future Scheduled 1993-01-14 Screening for malignant [facility] 00:00:00 neoplasm of cervix Medical C enter (procedure) [code = 400106942] Future Scheduled 1993-01-14 Screening for malignant [facility] 00:00:00 neoplasm of cervix Medical C enter (procedure) [code = 402791962] Future Scheduled 1993-01-14 Screening for malignant [facility] 00:00:00 neoplasm of cervix Medical C enter (procedure) [code = 729269495] Future Scheduled 1991-01-14 DTAP/TDAP/TD VACCINES [facility] [...] breast Medical C enter (procedure) [code = 337038428] Future Scheduled 1972 CT Colonography (combo) [facility] 00:00:00 [code = CT Colonography [facility] (combo)] Future Scheduled 1972 Screening for malignant [facility] 00:00:00 neoplasm of colon Medical Ce nter (procedure) [code = 611124495] Future Scheduled 1972 Screening for malignant [facility] 00:00:00 neoplasm of colon Medical Ce nter (procedure) [code = 717303167] Future Scheduled 1972 Screening for malignant [facility] 00:00:00 neoplasm of colon Medical Ce nter (procedure) [code = 118167759] Future Scheduled 1972 Screening for malignant [facility] 00:00:00 neoplasm of colon Medical Ce nter (procedure) [code = 640325535] Future Scheduled 1972 Sigmoidoscopy [code = [facility] S[facility]oscopy] Medical Cente r Future Scheduled 1972 Screening for malignant [facility] 00:00:00 neoplasm of breast Medical C enter (procedure) [code = 329365559] Future Scheduled 1972 CT Colonography (combo) [facility] 00:00:00 [code = CT Colonography [facility] (combo)] Future Scheduled 1972 Screening for malignant [facility] 00:00:00 neoplasm of colon Medical Ce nter (procedure) [code = 771299233] Future Scheduled 1972 Screening for malignant [facility] 00:00:00 neoplasm of colon Medical Ce nter (procedure) [code = 506884512] Future Scheduled 1972 Screening for malignant [facility] 00:00:00 neoplasm of colon Medical Ce nter (procedure) [code = 130868216] Future Scheduled 1972 Screening for malignant [facility] 00:00:00 neoplasm of colon Medical Ce nter (procedure) [code = 987788553] Future Scheduled 1972 Sigmoidoscopy [code = [facility] S[facility]oscopy] Medical Cente r Future Scheduled 1972 Screening for malignant [facility] 00:00:00 neoplasm of breast Medical C enter (procedure) [code = 893453296] Future Scheduled 1972 CT Colonography (combo) [facility] 00:00:00 [code = CT [facility] Future Scheduled 1972 Screening for malignant [facility] 00:00:00 neoplasm of colon Medical Ce nter (procedure) [code = 806937835] Future Scheduled 1972 Screening for malignant [facility] 00:00:00 neoplasm of colon Medical Ce nter (procedure) [code = 307125460] Future Scheduled 1972 Screening for malignant [facility] 00:00:00 neoplasm of colon Medical Ce nter (procedure) [code = 972364364] Future Scheduled 1972 Screening for malignant [facility] 00:00:00 neoplasm of colon Medical Ce nter (procedure) [code = 343303484] Future Scheduled 1972 Sigmoidoscopy [code = [facility]oscopy] Medical Christine r Future Scheduled 1972 Screening for malignant [facility] 00:00:00 neoplasm of breast Medical C enter (procedure) [code = 480113756] Future Scheduled 1972 CT Colonography (combo) [facility] 00:00:00 [code = CT [facility] ([facility])] Future Scheduled 1972 Screening for malignant [facility] 00:00:00 neoplasm of colon Medical Ce nter (procedure) [code = 009162054] Future Scheduled 1972 Screening for malignant [facility] 00:00:00 neoplasm of colon Medical Ce nter (procedure) [code = 281991527] Future Scheduled 1972 Screening for malignant [facility] 00:00:00 neoplasm of colon Medical Ce nter (procedure) [code = 064065153] Future Scheduled 1972 Screening for malignant [facility] 00:00:00 neoplasm of colon Medical Ce nter (procedure) [code = 713431713] Future Scheduled 1972 Sigmoidoscopy [code = [facility]oidoscopy] Medical Christine r Future Scheduled 1972 Screening for malignant [facility] 00:00:00 neoplasm of breast Medical C enter (procedure) [code = 589669798] Future Scheduled 1972 CT Colonography (combo) [facility] 00:00:00 [code = CT [facility] ([facility])] Future Scheduled 1972 Screening for malignant [facility] 00:00:00 neoplasm of colon Medical Ce nter (procedure) [code = 539752748] Future Scheduled 1972 Screening for malignant [facility] 00:00:00 neoplasm of colon Medical Ce nter (procedure) [code = 738218022] Future Scheduled 1972 Screening for malignant [facility] 00:00:00 neoplasm of colon Medical Ce nter (procedure) [code = 594987122] Future Scheduled 1972 Screening for malignant [facility] 00:00:00 neoplasm of colon Medical Ce nter (procedure) [code = 727035149] Future Scheduled 1972 Sigmoidoscopy [code = [facility]oscopy] Medical Cente r Future Scheduled 1972 Screening for malignant [facility] 00:00:00 neoplasm of breast Medical C enter (procedure) [code = 513194134] Future Scheduled 1972 CT Colonography (combo) [facility] 00:00:00 [code = CT [facility] ([facility]bo)] Future Scheduled 1972 Screening for malignant [facility] 00:00:00 neoplasm of colon Medical Ce nter (procedure) [code = 629786572] Future Scheduled 1972 Screening for malignant [facility] 00:00:00 neoplasm of colon Medical Ce nter (procedure) [code = 825706758] Future Scheduled 1972 Screening for malignant [facility] 00:00:00 neoplasm of colon Medical Ce nter (procedure) [code = 516464356] Future Scheduled 1972 Screening for malignant [facility] 00:00:00 neoplasm of colon Medical Ce nter (procedure) [code = 808151217] Future Scheduled 1972 Sigmoidoscopy [code = [facility]oscopy] Medical Cente r Future Scheduled 1972 Screening for malignant [facility] 00:00:00 neoplasm of breast Medical C enter (procedure) [code = 977633202] Future Scheduled 1972 CT Colonography (combo) [facility] 00:00:00 [code = CT [facility] ([facility])] Future Scheduled 1972 Screening for malignant [facility] 00:00:00 neoplasm of colon Medical Ce nter (procedure) [code = 341413240] Future Scheduled 1972 Screening for malignant [facility] 00:00:00 neoplasm of colon Medical Ce nter (procedure) [code = 149998527] Future Scheduled 1972 Screening for malignant [facility] 00:00:00 neoplasm of colon Medical Ce nter (procedure) [code = 843669041] Future Scheduled 1972 Screening for malignant [facility] 00:00:00 neoplasm of colon Medical Ce nter (procedure) [code = 234410203] Future Scheduled 1972 Sigmoidoscopy [code = [facility]] Medical Mesha r Goal Plan of Care Note [code = 41393-0] Goal Plan of Care Note [code = 50979-0] Goal Plan of Care Note [code = 73649-5] Goal Plan of Care Note [code = 23675-8] Goal Plan of Care Note [code = 06185-0] Goal Plan of Care Note [code = 73519-2] Goal Plan of Care Note [code = 52939-0] Goal Plan of Care Note [code = 78307-0] Goal Plan of Care Note [code = 18510-8] Goal Plan of Care Note [code = 38990-4] Goal Plan of Care Note [code = 34006-0] Goal Plan of Care Note [code = 86180-6] Goal Plan of Care Note [code = 82050-3] Goal Plan of Care Note [code = 92272-1] Goal Plan of Care Note [code = 14487-7] Goal Plan of Care Note [code = 66138-3] Goal Plan of Care Note [code = 46152-8] Goal Plan of Care Note [code = 59991-6] Goal Plan of Care Note [code = 81547-5] Goal Plan of Care Note [code = 46581-2] Goal Plan of Care Note [code = 57905-6] Goal Plan of Care Note [code = 28445-8] Goal Plan of Care Note [code = 06053-9] Goal Plan of Care Note [code = 12879-5] Goal Plan of Care Note [code = 25051-1] Goal Plan of Care Note [code = 06245-3] Goal Plan of Care Note [code = 81178-2] Goal Plan of Care Note [code = 62754-4] Goal Plan of Care Note [code = 46935-4] Goal Plan of Care Note [code = 75990-3] Goal Plan of Care Note [code = 37698-4] Goal Plan of Care Note [code = 76609-8] Goal Plan of Care Note [code = 56746-2] Goal Plan of Care Note [code = 56574-3] Goal Plan of Care Note [code = 23546-7] Encounters Start End Encounter Admission Attending Care Care Encounter Source Date/Time Date/Time Type Type Clinicians Facility Department ID 2021-05-20 Emergency [facility] [id number] Univers 18:48:04 ity [facility] 2021-05-20 Emergency [facility] [id number] Univers 12:43:40 ity [facility] 2022-08-28 2022-08-28 Patient Shy Beckman 1.2.840.114 [id number] Univers 00:00:00 00:00:00 Outreach E [place] 350.1.13.10 [place] [id number] [address] 2022-08-20 2022-08-20 Patient Shy Beckman 1.2.840.114 [id number] Univers 00:00:00 00:00:00 Outreach E [place] 350.1.13.10 [place] [id number] [address] 2022-08-02 2022-08-03 [facility] [id number] 17:30[facility]00 14:29[facility]00 [facility]22-[facility] 2022-08-03 Outpatient ER [facility] Neurology [id number] [facility] 17:30:00 14:29:00 [facility] 2022-08-02 2022-08-03 [facility] [id number] 17:30[facility]00 14:29:00 [facility] 2022-08-03 2022-08-03 Orders [facility] [id number] 00:00:00 00:00:00 [facility] 2022-08-03 2022-08-03 Orders [facility] [id number] 00:00:00 00:00:00 Only [facility] 2022-08-02 2022-08-02 Travel [facility] [id number] [facility] 00:[facility] 00:00:00 [facility] 2022-08-02 2022-08-02 Travel [facility] [id number] [facility] 00:[facility] 00:00:00 [facility] 2022-07-31 2022-08-01 Inpatient X MAYRAAMY [facility] [id number] Univers 11:42:00 21:48:00 LORENZA ity of [facility] 2022-07-31 2022-08-01 [facility] Sav Rondon [facility] 1.2.840.1 14 [id number] Univers 11:42:00 21:48:00 Encounter Lorenza Her YESO 350.1.13.10 ity [facility] [place] [id number] [facility] [address] 2022-08-01 2022-08-01 Transition BLAYNE Nicole 1.2.840.114 [id number] Univers 00:00:00 00:00:00 of Care Maria Teresa [place] 350.1.13.10 [place] [id number] [facility] [address] 2022-07-28 2022-07-28 Outpatient SFA SFA [id number] Adria 14:41:38 14:41:38 [address] [place] 2022-07-28 2022-07-28 Outpatient [id number]- [id number] 3d [id number] 00:00:00 00:00:00 Visit [id number] -2nt2-9ch [id number] 2022-07-24 2022-07-24 Outpatient SFA SFA [id number] Adria 13:24:40 13:24:40 0105 F Mauricio 2022-05-23 2022-05-23 Outpatient SFA SFA [id number] 022 Adria 14:51:01 14:51:01 1104 F Mauricio 2022-05-23 2022-05-23 Outpatient [id number]- [id number] f9 rlqo68-j 00:00:00 00:00:00 Visit b56h-8yu0 62f-4bb7-b -s16h-2a4 [id number] 7850ee 2022-05-04 2022-05-08 Outpatient X CHANTEL MATTHEWS [facility] S NS [id number] Univers 20:22:00 14:44:00 CHANTEL MATTHEWS ity [facility] 2022-05-04 2022-05-08 Emergency BrinerBrandyn 1.2.840.1 14 [id number] Univers 20:22:00 14:44:00 Chantel Matthews 350.1.13 .10 ity of [facility] 4.2.7.2.686 [facility] as [id number] [facility] [address] [place] 2022-04-13 2022-04-15 Inpatient X [facility] BERNARDINO [id number] Univers 13:06:00 15:00:00 [facility] ity [facility] 2022-04-13 2022-04-15 Hospital Sapna Vargas 1.2.84 0.114 [id number] Univers 13:06:00 15:00:00 Encounter Glory Esteves Sterling [place] 350. 1.13.10 ity [facility] 4.2.7.2.686 [place] [id number] [facility] [address] 2022-02-19 2022-02-19 Imm/Inj Vaccine, [facility] [place] 1.2.840.114 [id number] Univers 10:20:00 10:30:00 Visit Jose Frederick 350.1.13.10 [place] [facility] [id number] [facility] [address] 2022-02-19 2022-02-19 Outpatient R JOSE FREDERICK [facility] [id number] Univers 10:20:00 10:20:00 ity [facility] 2021-11-23 2021-11-23 Emergency X SULLY [facility] ERT [id number] Univers 15:07:00 17:03:00 NICHELLE ity of [facility] 2021-11-23 2021-11-23 Emergency Sav Rondon [facility] 1.2.840. 114 [id number] Univers 15:07:00 17:03:00 Nichelle Allison Angelia HERNANDEZ 350.1.13. 10 ity of [facility] 4.2.7.2.686 [facility] [id number] [facility] [address] 2021-11-21 2021-11-21 Outpatient R [facility] [id number] Univers 09:40:00 09:40:[address] [facility] 2021-05-24 2021-05-24 Outpatient R PASHAJOSE REVELES [facility] [id number] Univers 09:30:00 09:30:[address] [facility] 2021-05-24 2021-05-24 Imm/Inj Vaccine, [facility] [place] 1.2.840.114 [id number] Univers 08:47:51 08:57:51 Visit Jose Frederick 350.1.13.10 [place] [id number] [facility] [address] 2021-05-03 2021-05-03 Outpatient R JOSE FREDERICK [facility] [id number] Univers 09:40:00 09:59:[address] [facility] 2021-05-03 2021-05-03 Imm/Inj Vaccine, [facility] [place] 1.2.840.114 [id number] Univers 09:17:43 09:59:35 Visit Jose Frederick 350.1.13.10 [place] [id number] [facility] [address] 2021-04-16 2021-04-16 Orders Doctor THEODORE 1.2.840.114 [id number] Univers 00:00:00 00:00:00 Only Unassigned, [place] 350.1.13.10 ity of [facility] 4.2.7.2.686 Javier as [id number] [facility] [address] 2021-03-17 2021-03-17 Telephone EWELINA Nava 1.2.271.833 [id number] Univers 00:00:00 00:00:00 Miky JC 350.1.13.10 ity of [facility] 4.2.7.2.686 Javier as [id number] [address] 2021-03-16 2021-03-16 Emergency Palmer [facility] 1.2.840.114 [id number] Univers 20:08:00 23:24:00 Fabrice Hernandez 350.1.13.10 i ty of [place] 4.2.7.2.686 [facility] [id number] [address] 2021-03-14 2021-03-14 Urgent Lydia Desouza [facility] 1.2.840.114 [id number] Univers 18:59:34 20:19:13 Care Unknown, Attending Health 350.1.13.10 ity [facility] 4.2.7.2.686 Javier as Prem?Blea [phone] [address] Medical Office [facility] 2021-03-14 2021-03-14 Outpatient R UNKNOWN, [facility] [id number] Univers 19:00:00 19:00:00 ATTENDING ity of [facility] 2021-02-19 2021-02-19 Emergency [facility] 1.2.753.863 [id number] Univers 10:49:00 14:48:00 Anali Hernandez 350.1.13.10 i ty of [place] 4.2.7.2.686 [facility] [id number] [address] 2019-03-09 2019-03-09 Refkimberley [facility] 1.2.840.114 [id number] 00:00:00 00:00:00 Yehuda Hernandez 350.1.13.10 [place] 42.7.2.686 Professio [id number] [address] 2019-03-09 2019-03-09 Dick [facility] 1.2.840.114 [id number] Univers 00:00:00 00:00:00 Yehuda Hernandez 350.1.13.10 ity [place] 4.2.7.2.[id number] dical nal [address] Building Results Test Description Test Time Test Comments Results Result Comments Source RPR 2022-08-05 13:17:22 Test Item Value Reference Range Interpretation Comme nts RPR SCREEN (LATOYA) (test code = 420) Nonreactive Nonreactive HEMOGLOBIN [id number] 10:39:49 Test Item Value Reference Range Interpretation Comments HEMOGLOBIN A1C 5.8 % See_Comment H [Automated m essage] ELECTROPHORESIS ([facility]) The system which (test code = 3811) generated this result transmitted ref erence range: <=5.6%. The reference range was not used to int erpret this result as normal/abnormal . "The A1c is measured using a [facility]-certified method. HbA1c value equal to or greater than 6.5% as thediagnosis cutoff for diabetes. An HbA1c value of 5.7- 6.4% indicates increased risk for diabetes (prediabetes)."Architectural Intern ID - ADM VITAMIN [id number] 22:48:27 Test Item Value Reference Range Interpretation Comments VITAMIN B12 ([facility]) (test code = 227 pg/mL 213-816 774) Architectural Intern ID - MARCOTSH/FREE T4 IF [id number] 22:08:28 Test Item Value Reference Range Interpretation Comments THYROID STIMULATING HORMONE 3.309 uIU/mL 0.350-4.940 ([facility]) (test code = 772) Architectural Intern ID - JSHIV-1 ANTIGEN WITH HIV-1/2 [id number] 22:08:28 Test Item Value Reference Range Interpretation Comments HIV-1 ANTIGEN WITH HIV 1\\T\\2 Nonreactive Nonreactive ANTIBODY (2) ([facility]) (test code = 2586) Architectural Intern ID - JSC-REACTIVE [id number] 21:49:44 Test Item Value Reference Range Interpretation Comments C-REACTIVE PROTEIN ([facility]) (test 0.35 mg/dL 0.00-0.50 code = 676) Architectural Intern ID - JSCOMPREHENSIVE METABOLIC [id number] 21:49:43 Test Item Value Reference Range Interpretation Comments TOTAL PROTEIN 7.1 gm/dL 6.0-8.3 ([facility]) (test code = 770) ALBUMIN (BEAKER) 4.2 [...] eGF R is based on the CKD-EPI 2021 equation that d oes not use a race coefficientEsti mated GFR is not as accur ate as Creatinine Graciela quezada in predicting glom erular filtration rate . Estimated GFR is not appl icable for dialysis patien ts Architectural Intern ID - JSLIPID [id number] 21:49:43 Test Item Value Reference Range Interpretation [...] Borderline 130-159 High 160-189 Very High >=190 Architectural Intern ID - JSCBC W/PLT COUNT & AUTO [id number] 21:34:03 Test Item Value Reference Range Interpretation [...] Interpretation Comments Height (test code = in 9580419608) Weight (test code = lbs 2494371060) Systolic BP (test code = mmHg 1811881405) Diastolic BP (test code mmHg = 3600470612) Heart Rate (test code = bpm 0984412712) BSA (test code = 2.00 m2 5614230860) Ao root diam (test code 3.20 cm = 3267453562) Aortic root (test code = 3.2 cm 2459702709) Ao root annulus (test 3.2 cm code = 7270624060) LVOT diameter (test code 1.99 cm = 4511273630) LVOT area (test code = 3.10 cm2 3580355795) LVIDD (test code = 5.10 cm 3540775950) Left Ventricular End 123.0 mL Diastolic Volume by Teichholz Method (test code = 0844739) IVS (test code = 1.34 cm 3322960160) Interventricular Septum 1.34 cm Diastolic Thickness by 2D (test code = 8672664) LVPWD (test code = 1.34 cm 6785162240) PW (test code = 1.34 cm 0.6-1.4 8004765005) EF(Teich) (test code = 41.80 % 0036435324) LVIDS (test code = 4.00 cm 8149374911) Left Ventricular End 71.5 mL Systolic Volume by Teichholz Method (test code = 6131464) FS (test code = 21 % 7081969790) EF - 2D (test code = 41.80 % 44508136) LA size (test code = 4.6 cm 0493239617) Pulmonic Regurgitant End 119.4 cm/s Max Velocity (test code = 0112849453) LAV(MOD-sp4) (test code 95.00 mL = 3829494086) E wave decelartion time 0.15 s (test code = 5997042100) MV stenosis pressure 1/2 45.6 ms time (test code = 0238777712) MV Peak A Evette (test code 123.8 cm/s = 5521214029) MV Peak E Evette (test code 109.7 cm/s = 6231609345) E/A ratio (test code = ratio 7122845344) MR max PG (test code = 87.20 mm[Hg] 2335146839) MR max evette (test code = 466.90 cm/s 3653692209) Mr max evette (test code = 466.9 m/s 4819384243) MV Prop V (test code = 51.00 cm/s 7583951350) MV E/e' septal (test 8.1 cm/s code = 1669242772) Tapse (test code = 2.21 cm 7116380916) LVOT stroke volume (test 49.80 cm3 code = 2478492516) LVOT peak evette (test code 89.1 cm/s = 4045859756) LVOT mn grad (test code mmHg = 7816956027) AV LVOT peak gradient mmHg (test code = 7969909861) LVOT peak VTI (test code 16.0 cm = 6675072993) LV V1 mean (test code = 64.30 cm/s 2452295546) Aortic valve mean 133.8 cm/s velocity (test code = 4617037806) Ao peak evette (test code = 175.3 cm/s 6627471113) Ao VTI (test code = 32.2 cm 4234907403) AV area by cont VTI 1.6 cm2 (test code = 2958375654) AV area peak evette (test 1.6 cm2 code = 4965034056) Ao max PG (test code = 12.30 mm[Hg] 1603884154) AV peak gradient (test mmHg code = 5979245078) AV valve area (test code 1.55 cm2 = 2736896447) AV mean gradient (test mmHg code = 7599944004) AV regurgitation 358.5 ms pressure 1/2 time (test code = 9844485572) AI dec slope (test code 364.20 cm/s2 = 5630705225) AI max evette (test code = 445.80 cm/s 7282409606) AI max PG (test code = 79.50 mm[Hg] 5166379726) Radiology Study observation (narrative) (test code = 86272-5) LYNDSAY (test code = LYNDSAY) ?Left?Ventricle: Left [...] mL of Lumason ultrasound enhancing agent used. [facility] GLUCOSE (AUTOMATED)2022-08-01 10:43:32 Test Item Value Reference Range Interpretation Comments POCT GLU (test code = 1158353901) 148 mg/dL 70-110 H Lab Interpretation (test code = Abnormal 72957-7) [facility] [id number] 18:39:45 Test Item Value Reference Range Interpretation Comments APTT Patient (test See_Comment [Automat ed code = 3173-2) message] The system which generated this result transmitted reference range : 23 - 38 Seconds . The reference range was not used to interpr et this result as normal/abnormal . LYNDSAY (test code = LYNDSAY) The [facility] patient population mean normal value for aPTT is 30 seconds. Lab Interpretation Normal (test code = 66388-4) [facility] TIME / [id number] 18:37:42 Test Item Value Reference Range Interpretation [...] tions. Lab Interpretation (test Normal code = 85714-4) [facility]TROPONIN [id number] 18:32:01 Test Item Value Reference Interpretation Comments Range TROPONIN I (test 0.019 ng/mL See_Comment [Automated code = 3599675464) message] The system which generated this result [...] biotin. Lab Interpretation Normal (test code = 04297-1) [facility] HospitalN-TERMINAL [id number] 18:29:01 Test Item Value Reference Range Interpretation Comments NT-proBNP (test code 2770 pg/mL See_Comment H [Autom ated = 8430815114) message] The system which generated this result transmitted reference range : <=125. The reference range was not used to interpret this result as normal/abnormal . LYNDSAY (test code = LYNDSAY) Biotin has been reported to cause a negative bias, interpret results relative to patient's use of biotin. Lab Interpretation Abnormal (test code = 33446-5) [facility]COMP[facility] METABOLIC PANEL (10925)2022-07-31 18:21:42 Test Item Value Reference Range Interpretation Comments NA (test code = 136 mmol/L 135-145 8175338037) K (test code = 4.6 mmol/L 3.5-5.0 7949064904) CL (test code = 104 mmol/L 98-108 2839187192) CO2 TOTAL (test code = 26 mmol/L 23-31 8287843248) AGAP (test code = 2-16 6933379398) BUN (test code = 9 mg/dL 7-23 3995440170) GLUCOSE (test code = 97 mg/dL 70-110 2214201057) CREATININE (test code = 0.64 mg/dL 0.50-1.04 5453452589) TOTAL BILI (test code = 0.5 mg/dL 0.1-1.8 9395795706) CALCIUM (test code = 8.2 mg/dL 8.6-10.6 L 6224977700) T PROTEIN (test code = 6.5 g/dL 6.3-8.2 7599487494) ALBUMIN (test code = 3.9 g/dL 3.5-5.0 8207327317) ALK PHOS (test code = 93 U/L 34-122 1257182179) ALTv (test code = 18 U/L 5-35 1742-6) AST(SGOT) (test code = 19 U/L 13-40 6060095995) eGFR (test code = mL/min/1.73m2 4387686398) LYNDSAY (test code = LYNDSAY) Association of [...] tests). Lab Interpretation Abnormal (test code = 56280-1) [facility] HospitalLIPASE2023-01-12 18:21:01 Test Item Value Reference Range Interpretation Comments LIPASE (test code = 2803278306) 54 U/L 0-220 Lab Interpretation (test code = Normal 18024-5) [facility]CB WITH [id number] 18:07:00 Test Item Value Reference Range Interpretation Comments WBC (test code = See_Comment [Automated 3549-2) message] The sy stem which generated this [...] (test code = 53.1 fL 39.0-49.9 H 70467-7) RDW-CV (test code = 17.0 % 12.0-15.5 H 788-0) PLT (test code = See_Comment H [Automated 777-3) message] The sy stem which generated this result transmitted reference range : 166 - 358 10*3/ ?L. The reference r zoe was not used to interpret this result as normal/abnormal . MPV (test code = 8.2 fL 9.5-12.9 L 22974-1) NRBC/100 WBC (test See_Comment [Automat ed code = 5833153281) message] The system which generated this result transmitted reference range : 0.0 - 10.0 /100 WBCs. The refer ence range was not u sed to interpret th is result as normal/abnormal . NRBC x10^3 (test code See_Comment [Auto mated = 2145784296) message] The s ystem which generated this result transmitted reference range : 10*3/?L. The reference range was not used to interpret this result as normal/abnormal . GRAN MAT (NEUT) % 64.0 % (test code = 770-8) IMM GRAN % (test code 0.40 % = 1336965295) LYMPH % (test code = 27.3 % 736-9) MONO % (test code = 6.5 % 5905-5) EOS % (test code = 1.1 % 713-8) BASO % (test code = 0.7 % 706-2) GRAN MAT x10^3(ANC) 5.46 10*3/uL 1.88-7.09 (test code = 9558233901) IMM GRAN x10^3 (test 0.03 10*3/uL 0.00-0.06 code = 6242886192) LYMPH x10^3 (test code 2.32 10*3/uL 1.32-3.29 = 731-0) MONO x10^3 (test code 0.55 10*3/uL 0.33-0.92 = 742-7) EOS x10^3 (test code = 0.09 10*3/uL 0.03-0.39 711-2) BASO x10^3 (test code 0.06 10*3/uL 0.01-0.07 = 704-7) Lab Interpretation Abnormal (test code = 43114-0) [facility] METABOLIC PANEL (NA, K, CL, CO2, GLUCOSE, BUN, CREATININE, CA)2022-05-08 06:37:01 Test Item Value Reference Range Interpretation Comments NA (test code = 137 mmol/L 135-145 3082619638) K (test code = 3.8 mmol/L 3.5-5 2693054527) CL (test code = 103 mmol/L 98-108 1104323025) CO2 TOTAL (test code = 24 mmol/L 23-31 4270166835) AGAP (test code = 2-16 4003984340) BUN (test code = 13 mg/dL 7-23 0438896250) GLUCOSE (test code = 90 mg/dL 70-110 3016468487) CREATININE (test code = 0.69 mg/dL 0.5-1.04 5781026467) CALCIUM (test code = 8.5 mg/dL 8.6-10.6 L 7849411108) eGFR (test code = mL/min/1.73m2 4845610543) LYNDSAY (test code = LYNDSAY) Association of [...] tests). Lab Interpretation Abnormal (test code = 43919-5) [facility] HospitalMAGNESIUM2022-10-20 06:37:01 Test Item Value Reference Range Interpretation Comments MAGNESIUM (test code = 0006756011) 2.1 mg/dL 1.7-2.4 Lab Interpretation (test code = Normal 88702-7) [facility] HospitalPHOSPHORUS2022-10-20 06:37:01 Test Item Value Reference Range Interpretation Comments PHOSPHORUS (test code = 5678382317) 4.7 mg/dL 2.5-5 Lab Interpretation (test code = Normal 17616-1) [facility]CB WITH [id number] 06:11:54 Test Item Value Reference Range Interpretation Comments WBC (test code = See_Comment [Automated 3730-2) message] The sy stem which generated this result transmitted reference range : 4.30 - 11.10 10*3/?L. The reference range was not used to interpret this result as normal/abnormal . RBC (test code = See_Comment [Automated 598-1) message] The sy stem which generated this [...] (test code = 51.0 fL 39-49.9 H 30708-9) RDW-CV (test code = 16.5 % 12-15.5 H 788-0) PLT (test code = See_Comment H [Automated 777-3) message] The sy stem which generated this result transmitted reference range : 166 - 358 10*3/ ?L. The reference r zoe was not used to interpret this result as normal/abnormal . MPV (test code = 8.3 fL 9.5-12.9 L 16977-7) NRBC/100 WBC (test See_Comment [Automat ed code = 6578459106) message] The system which generated this result transmitted reference range : 0.0 - 10.0 /100 WBCs. The refer ence range was not u sed to interpret th is result as normal/abnormal . NRBC x10^3 (test code See_Comment [Auto mated = 1284187198) message] The s ystem which generated this result transmitted reference range : 10*3/?L. The reference range was not used to interpret this result as normal/abnormal . GRAN MAT (NEUT) % 64.5 % (test code = 770-8) IMM GRAN % (test code 0.50 % = 2604878085) LYMPH % (test code = 27.1 % 736-9) MONO % (test code = 6.6 % 5905-5) EOS % (test code = 0.6 % 713-8) BASO % (test code = 0.7 % 706-2) GRAN MAT x10^3(ANC) 5.28 10*3/uL 1.88-7.09 (test code = 9059458602) IMM GRAN x10^3 (test 0.04 10*3/uL 0-0.06 code = 4814904420) LYMPH x10^3 (test code 2.22 10*3/uL 1.32-3.29 = 731-0) MONO x10^3 (test code 0.54 10*3/uL 0.33-0.92 = 742-7) EOS x10^3 (test code = 0.05 10*3/uL 0.03-0.39 711-2) BASO x10^3 (test code 0.06 10*3/uL 0.01-0.07 = 704-7) Lab Interpretation Abnormal (test code = 32165-2) [facility] HospitalPOCT GLUCOSE (AUTOMATED)2022-05-07 01:18:10 Test Item Value Reference Range Interpretation Comments POCT GLU (test code = 8791487684) 120 mg/dL 70-110 H Lab Interpretation (test code = Abnormal 33894-5) [facility] HospitalType and Screen - ONCE [id number] 05:46:35 Test Item Value Reference Range Interpretation Comments ABO & RH (test code O POSITIVE Performe d at [facility] = 20) Laboratory Serv [facility]3 [facility] s [id number] Free: [phone] A No. [id number] IAT (test code = Negative Performed a t [facility] 1185) Laboratory Serv [facility] s [address]Yilk Free: [phone] A No. [id number] [facility] HospitalBASIC METABOLIC PANEL (NA, K, CL, CO2, GLUCOSE, BUN, CREATININE, CA)2022-05-05 08:22:57 Test Item Value Reference Range Interpretation Comments NA (test code = 136 mmol/L 135-145 8714673849) K (test code = 4.9 mmol/L 3.5-5 0985600798) CL (test code = 108 mmol/L 98-108 1079444865) CO2 TOTAL (test code = 22 mmol/L 23-31 L 1894645159) AGAP (test code = 2-16 1555415734) BUN (test code = 12 mg/dL 7-23 0155980762) GLUCOSE (test code = 155 mg/dL 70-110 H 6967758380) CREATININE (test code = 0.63 mg/dL 0.5-1.04 0901852421) CALCIUM (test code = 8.4 mg/dL 8.6-10.6 L 0608778016) eGFR (test code = mL/min/1.73m2 2351858512) LYNDSAY (test code = LYNDSAY) Association of [...] tests). Lab Interpretation Abnormal (test code = 57626-5) [facility] HospitalPROTHROMBIN TIME / [id number] 08:22:37 Test Item Value Reference Range Interpretation Comments PROTIME PATIENT (test See_Comment [Auto mated message] code = 5964-2) The system [employer] generated this result transmitted ref erence range: 10.1 - 1 2.6 Seconds. The re ference range was not u sed to interpret this result as normal/abnor mal. INR (test code = 6301-6) Nor mal INR <1.1; Warfarin Therap eutic range 2.0 to 3. 0 or 2.5 to 3.5, dep ending upon the indica tions. Lab Interpretation (test Normal code = 38352-1) [facility] HospitalaPTT2022-10-17 08:22:37 Test Item Value Reference Range Interpretation Comments APTT Patient (test code = See_Comment [ Automated message] 3173-2) The system whic h generated this result transmitted ref erence range: 26 - 36 Seconds. The re ference range was not u sed to interpret this result as normal/abnor mal. Lab Interpretation (test Normal code = 00466-1) [facility] HospitalFIBRINOGEN2022-10-17 08:22:37 Test Item Value Reference Range Interpretation Comments Fibrinogen (test code = 9395404089) 294 mg/dL 167-453 Lab Interpretation (test code = Normal 56151-8) [facility] WITH [id number] 08:15:01 Test Item Value Reference Range Interpretation Comments WBC (test code = See_Comment [Automated 9190-2) message] The sy stem which generated this [...] (test code = 52.9 fL 39-49.9 H 26863-2) RDW-CV (test code = 16.8 % 12-15.5 H 788-0) PLT (test code = See_Comment H [Automated 777-3) message] The sy stem which generated this result transmitted reference range : 166 - 358 10*3/ ?L. The reference r zoe was not used to interpret this result as normal/abnormal . MPV (test code = 8.3 fL 9.5-12.9 L 39872-3) NRBC/100 WBC (test See_Comment [Automat ed code = 8865506806) message] The system which generated this result transmitted reference range : 0.0 - 10.0 /100 WBCs. The refer ence range was not u sed to interpret th is result as normal/abnormal . NRBC x10^3 (test code See_Comment [Auto mated = 7598909337) message] The s ystem which generated this result transmitted reference range : 10*3/?L. The reference range was not used to interpret this result as normal/abnormal . GRAN MAT (NEUT) % 86.4 % (test code = 770-8) IMM GRAN % (test code 0.40 % = 7885724005) LYMPH % (test code = 11.7 % 736-9) MONO % (test code = 1.1 % 5905-5) EOS % (test code = 0.0 % 713-8) BASO % (test code = 0.4 % 706-2) GRAN MAT x10^3(ANC) 6.36 10*3/uL 1.88-7.09 (test code = 6249673273) IMM GRAN x10^3 (test 0.03 10*3/uL 0-0.06 code = 6149511213) LYMPH x10^3 (test code 0.86 10*3/uL 1.32-3.29 L = 731-0) MONO x10^3 (test code 0.08 10*3/uL 0.33-0.92 L = 742-7) EOS x10^3 (test code = 0.03-0.39 L 711-2) BASO x10^3 (test code 0.03 10*3/uL 0.01-0.07 = 704-7) Lab Interpretation Abnormal (test code = 68048-5) [facility] HospitalVITAMIN D, [id number] 20:14:03 Test Item Value Reference Range Interpretation Comments VIT D 25OH (test code = 22 ng/mL 25-80 L 27793-4) LYNDSAY (test code = LYNDSAY) Deficiency: <20 ng/mLInsufficiency: 20-24 ng/mLOptimal: 25-80 ng/mL Lab Interpretation (test Abnormal code = 06809-8) [facility] METABOLIC PANEL (NA, K, CL, CO2, GLUCOSE, BUN, CREATININE, CA)2022-04-15 11:27:57 Test Item Value Reference Range Interpretation Comments NA (test code = 138 mmol/L 135-145 5663844046) K (test code = 3.9 mmol/L 3.5-5 6626535379) CL (test code = 106 mmol/L 98-108 0847307272) CO2 TOTAL (test code = 23 mmol/L 23-31 8410973811) AGAP (test code = 2-16 3729035426) BUN (test code = 10 mg/dL 7-23 6983173145) GLUCOSE (test code = 91 mg/dL 70-110 0505707223) CREATININE (test code = 0.65 mg/dL 0.5-1.04 9866430413) CALCIUM (test code = 8.1 mg/dL 8.6-10.6 L 4713975932) eGFR (test code = mL/min/1.73m2 4180207628) LYNDSAY (test code = LYNDSAY) Association of [...] tests). Lab Interpretation Abnormal (test code = 14246-2) [facility] Protocol - Transthoracic echo (TTE) 2022-04-14 22:07:33 Test Item Value Reference Range Interpretation Comments Height (test code = in 1287226041) Weight (test code = lbs 6636960463) Systolic BP (test code = mmHg 9981144022) Diastolic BP (test code mmHg = 4390544002) Heart Rate (test code = bpm 7463108686) BSA (test code = 1.94 m2 9353809046) TASV (test code = 15.5 cm/s 2250135093) LVIDD (test code = 6.00 cm 0689450161) Left Ventricular End 183.0 mL Diastolic Volume by Teichholz Method (test code = 2408122) IVS (test code = 1.09 cm 9985427003) Interventricular Septum 1.09 cm Diastolic Thickness by 2D (test code = 4441785) LVPWD (test code = 0.94 cm 9744965184) PW (test code = 0.94 cm 0.6-1.5 4932874673) EF(Teich) (test code = 40.30 % 1874891229) LVIDS (test code = 4.80 cm 4288560970) Left Ventricular End 109.2 mL Systolic Volume by Teichholz Method (test code = 4460975) FS (test code = 20 % 0576577895) EF - 2D (test code = 40.30 % 87619351) LVOT diameter (test code 2.05 cm = 7466960934) LVOT area (test code = 3.30 cm2 3382214260) Ao root diam (test code 3.10 cm = 1027993360) Aortic root (test code = 3.1 cm 9215701706) Ao root annulus (test 3.1 cm code = 7064475550) LA size (test code = 4.2 cm 6395792251) LAV(MOD-sp4) (test code 64.90 mL = 2010538846) MV Peak A Evette (test code 115.7 cm/s = 1402403928) E wave decelartion time 0.15 s (test code = 4400910180) MV Peak E Evette (test code 106.2 cm/s = 9109510945) E/A ratio (test code = ratio 2865975697) LVOT stroke volume (test 48.30 cm3 code = 7520876969) LVOT peak evette (test code 78.4 cm/s = 1966076550) LVOT mn grad (test code mmHg = 9342254688) AV LVOT peak gradient mmHg (test code = 1666005405) LVOT peak VTI (test code 14.7 cm = 6937538830) LV V1 mean (test code = 51.40 cm/s 9849999624) Ao peak evette (test code = 154.7 cm/s 3068479469) AV area peak evette (test 1.7 cm2 code = 7838086846) Ao max PG (test code = 9.60 mm[Hg] 4727236995) AV peak gradient (test mmHg code = 9537675220) AV regurgitation 257.3 ms pressure 1/2 time (test code = 0769159869) AI dec slope (test code 498.10 cm/s2 = 4444182498) AI max evette (test code = 437.60 cm/s 8432705700) AI max PG (test code = 77.80 mm[Hg] 1305258382) Tapse (test code = 2.19 cm 2745279697) LA Volume Index (BP) 32.0 mL/m2 (test code = 8549263896) LA volume (BP) (test 62.1 mL code = 1373730996) LAV(MOD-sp2) (test code 52.70 mL = 8667357081) A4C EF (test code = 44.80 % 7477993598) EF(sp4-el) (test code = 45.20 % 6342058411) SV(MOD-sp4) (test code = 71.20 mL 2689121658) SV(sp4-el) (test code = 73.90 mL 5137464060) LV Diastolic Volume (BP) 146.3 mL (test code = 2662716635) A2C EF (test code = 52.00 % 2431432907) EF(MOD-bp) (test code = 46.70 % 7448599803) EF(sp2-el) (test code = 52.40 % 0584523560) LV Systolic Volume (BP) 77.9 mL (test code = 9346378814) SV(MOD-bp) (test code = 68.40 mL 6966180707) SV(MOD-sp2) (test code = 69.20 mL 0077909046) EF (test code = 4764148775) Left Ventricular Stroke 68.4 mL Volume by 2-D Biplane-MOD (test code = 9231343) Radiology Study observation (narrative) (test code = 93422-3) LYNDSAY (test code = LYNDSAY) ?Left?Ventricle: Left [...] agent used and saline contrast was performed. [facility] HospitalKEPPRA (LEVETIRACETAM)2022-04-14 16:48:36 Test Item Value Reference Range Interpretation Comments KEPPRA (test code = 12-46 L 3804018626) LYNDSAY (test code = LYNDSAY) Therapeutic range: 12-46 ?g/mL ? ?Toxic: Not well established.Test developed and characteristics determined by [facility] Laboratory Services. Lab Interpretation Abnormal (test code = 07002-6) [facility] Metabolic Panel (Na, K, Cl, CO2, Glucose, BUN, Creatinine, Ca)2022-04-14 10:50:11 Test Item Value Reference Range Interpretation Comments NA (test code = 136 mmol/L 135-145 7167993470) K (test code = 3.8 mmol/L 3.5-5 9508919502) CL (test code = 105 mmol/L 98-108 9163434890) CO2 TOTAL (test code = 25 mmol/L 23-31 8411774870) AGAP (test code = 2-16 5641610967) BUN (test code = 9 mg/dL 7-23 1928304455) GLUCOSE (test code = 101 mg/dL 70-110 7181228602) CREATININE (test code = 0.66 mg/dL 0.5-1.04 1390614322) CALCIUM (test code = 8.1 mg/dL 8.6-10.6 L 6532818361) eGFR (test code = mL/min/1.73m2 8861080038) LYNDSAY (test code = LYNDSAY) Association of [...] tests). Lab Interpretation Abnormal (test code = 27118-4) [facility] HospitalMagensium, [id number] 10:50:11 Test Item Value Reference Range Interpretation Comments MAGNESIUM (test code = 6654188591) 1.9 mg/dL 1.7-2.4 Lab Interpretation (test code = Normal 73997-0) [facility] HospitalThyroid Stimulating [id number] 22:21:44 Test Item Value Reference Range Interpretation Comments TSH (test code = See_Comment Biotin has been 7070071976) reported to cau se a negative bias, interpret resul ts relative to autumn garcia's use of biotin. [Automated mess age] The system [employer] generated this result transmitted ref erence range: 0.45 - 4 .70 mIU/L. The refe rence range was not u sed to interpret this result as normal/abnor mal. Lab Interpretation (test Normal code = 28132-6) [facility] HospitalGLYCOSYLATED HEMOGLOBIN (A1C)2022-04-13 21:53:43 Test Item Value Reference Range Interpretation Comments HGB A1C (test code = 5.8 % 4-5.7 H 4548-4) LYNDSAY (test code = LYNDSAY) Reference RangesNormal: <5.7%Prediabetes: 5.7 - 6.4%Diabetes: > 6.5% Lab Interpretation (test Abnormal code = 45931-8) [facility] HospitalFASTING LIPID PANEL (11834)(TOTAL CHOLESTEROL, TRIGLYCERIDES, HDL)2022-04-13 21:34:53 Test Item Value Reference Range Interpretation Comments CHOL (test code = 201 mg/dL 120-200 H 2385348434) HDL (test code = 56 mg/dL See_Comment [Automated message] 5704514046) The system [employer] generated this result transmit sherice reference range : >=50. The refer ence range was not u sed to interpret th is result as normal/abnormal . HDLC RATIO (test code = See_Comment [Au tomated message] 3675365227) The system [employer] generated this result transmit sherice reference range : <=4.5. The refe rence range was not u sed to interpret th is result as normal/abnormal . TRIG (test code = 355 mg/dL 30-170 H 1964743151) LDL CHOL (test code = 74 mg/dL See_Comment [Auto mated message] 65543-6) The system [employer] generated this result transmit sherice reference range : <=160. The refe rence range was not u sed to interpret th is result as normal/abnormal . VLDL (test code = 71 mg/dL 5-60 H 2259453631) Lab Interpretation (test Abnormal code = 68042-5) [facility] HospitalTroponin I - Code Rswpbk4743-22-54 18:46:27 Test Item Value Reference Interpretation Comments Range TROPONIN I (test 0.013 ng/mL See_Comment [Automated code = 2008445663) message] The system which generated this result [...] biotin. Lab Interpretation Normal (test code = 17494-2) [facility] Metabolic Panel (NA, K, CL, CO2, Glucose, BUN, Creatinine, CA) - Code [id number] 18:35:07 Test Item Value Reference Range Interpretation Comments NA (test code = 136 mmol/L 135-145 9131254264) K (test code = 4.3 mmol/L 3.5-5 3395101306) CL (test code = 105 mmol/L 98-108 9508054749) CO2 TOTAL (test code = 27 mmol/L 23-31 0769460332) AGAP (test code = 2-16 1679368263) BUN (test code = 8 mg/dL 7-23 6128774825) GLUCOSE (test code = 130 mg/dL 70-110 H 3405006643) CREATININE (test code = 0.75 mg/dL 0.5-1.04 1728306441) CALCIUM (test code = 8.5 mg/dL 8.6-10.6 L 9932113399) eGFR (test code = mL/min/1.73m2 2720381071) LYNDSAY (test code = LYNDSAY) Association of [...] tests). Lab Interpretation Abnormal (test code = 17501-2) [facility]aP[facility] - Code [id number] 18:32:46 Test Item Value Reference Range Interpretation Comments APTT Patient (test See_Comment [Automat ed code = 3173-2) message] The system which generated this result transmitted reference range : 23 - 38 Seconds . The reference range was not used to interpr et this result as normal/abnormal . LYNDSAY (test code = LYNDSAY) The [facility] patient population mean normal value for aPTT is 30 seconds. Lab Interpretation Normal (test code = 93273-8) [facility] HospitalProthrombin Time / INR - Code [id number] 18:30:45 Test Item Value Reference Range Interpretation Comments PROTIME PATIENT (test See_Comment [Auto mated message] code = 5964-2) The system [employer] generated this result transmitted ref erence range: 12.0 - 1 4.7 Seconds. The re ference range was not u sed to interpret this result as normal/abnor mal. INR (test code = 6301-6) Nor mal INR <1.1; Warfarin Therap eutic range 2.0 to 3. 0 or 2.5 to 3.5, dep ending upon the indica tions. Lab Interpretation (test Normal code = 85773-9) [facility] HospitalCBC without Diff - Code [id number] 18:23:07 Test Item Value Reference Range Interpretation Comments WBC (test code = 6690-2) See_Comment [A utomated message] The system [employer] h generated this result transmit sherice reference range : 4.30 - 11.10 10*3/?L. The reference range was not used to interpret this result as normal/abnormal . RBC (test code = 789-8) See_Comment [Au tomated message] The system [employer] generated this result transmit sherice reference range [...] See_Comment H [Au tomated message] The system [employer] generated this result transmit sherice reference range : 166 - 358 10*3/?L. The reference range was not used to interpret this result as normal/abnormal . MPV (test code = 8.1 fL 9.5-12.9 L 02830-3) RDW-CV (test code = 16.1 % 12-15.5 H 788-0) RDW-SD (test code = 49.2 fL 39-49.9 53117-7) NRBC x10^3 (test code = See_Comment [Au tomated message] 7075893898) The system [employer] generated this result transmit sherice reference range : 10*3/?L. The reference range was not used to interpret this result as normal/abnormal . NRBC/100 WBC (test code See_Comment [Au tomated message] = 4816847064) The system [facility] generated this result transmit sherice reference range : 0.0 - 10.0 /100 WBC s. The reference r zoe was not used to interpret this result as normal/abnormal . IPF % (test code = 7347687508) Lab Interpretation (test Abnormal code = 57446-4) [facility] HospitalJESS [id number] 21:06:40 Test Item Value Reference Interpretation Comments Range TROPONIN I (test 0.005 ng/mL See_Comment [Automated code = 4926085047) message] The system which generated this result [...] biotin. Lab Interpretation Normal (test code = 75514-5) [facility]. METABOLIC PANEL (56331)2021-11-23 20:55:42 Test Item Value Reference Range Interpretation Comments NA (test code = 137 mmol/L 135-145 4634437253) K (test code = 4.3 mmol/L 3.5-5.0 9825037175) CL (test code = 104 mmol/L 98-108 7584137605) CO2 TOTAL (test code = 22 mmol/L 23-31 L 3096084213) AGAP (test code = 2-16 9559834404) BUN (test code = 15 mg/dL 7-23 3717496087) GLUCOSE (test code = 114 mg/dL 70-110 H 3204159540) CREATININE (test code = 0.68 mg/dL 0.50-1.04 8345674926) TOTAL BILI (test code = 0.5 mg/dL 0.1-1.0 8152502056) CALCIUM (test code = 9.1 mg/dL 8.6-10.6 6483303043) T PROTEIN (test code = 7.3 g/dL 6.3-8.2 0194059779) ALBUMIN (test code = 4.4 g/dL 3.5-5.0 0216290411) ALK PHOS (test code = 243 U/L 34-122 H 4718190555) ALTv (test code = 24 U/L 5-35 1742-6) AST(SGOT) (test code = 30 U/L 13-40 3554486894) eGFR (test code = mL/min/1.73m2 5763235309) LYNDSAY (test code = LYNDSAY) Association of [...] tests). Lab Interpretation Abnormal (test code = 32835-7) [facility]22 Test Item Value Reference Range Interpretation Comments LIPASE (test code = 2345248827) 96 U/L 0-220 Lab Interpretation (test code = Normal 69661-2) [facility] [id number] 20:46:00 Test Item Value Reference Range Interpretation Comments POCT PREG (test code = 1605) negative On board controls acceptable with present C Line (test code = 3574) POCT PREG LOT # (test code = 3575) [id number] POCT PREG TEST DATE (test 04/18/2023 code = 3576) Lab Interpretation (test code = Normal 04657-9) [facility] WITH [id number] 20:40:38 Test Item Value Reference Range Interpretation [...] (test code = 53.7 fL 39.0-49.9 H 69305-8) RDW-CV (test code = 17.2 % 12.0-15.5 H 788-0) PLT (test code = See_Comment H [Automated 777-3) message] The sy stem which generated this result transmitted reference range : 166 - 358 10*3/ ?L. The reference r zoe was not used to interpret this result as normal/abnormal . MPV (test code = 8.5 fL 9.5-12.9 L 16399-4) NRBC/100 WBC (test See_Comment [Automat ed code = 6027728971) message] The system which generated this result transmitted reference range : 0.0 - 10.0 /100 WBCs. The refer ence range was not u sed to interpret th is result as normal/abnormal . NRBC x10^3 (test code <0.01 See_Comment [Auto mated = 5636429686) message] The s ystem which generated this result transmitted reference range : 10*3/?L. The reference range was not used to interpret this result as normal/abnormal . GRAN MAT (NEUT) % 53.7 % (test code = 770-8) IMM GRAN % (test code 0.90 % = 2443929501) LYMPH % (test code = 32.6 % 736-9) MONO % (test code = 10.1 % 5905-5) EOS % (test code = 1.5 % 713-8) BASO % (test code = 1.2 % 706-2) GRAN MAT x10^3(ANC) 4.98 10*3/uL 1.88-7.09 (test code = 5124683663) IMM GRAN x10^3 (test 0.08 10*3/uL 0.00-0.06 H code = 8605668776) LYMPH x10^3 (test code 3.02 10*3/uL 1.32-3.29 = 731-0) MONO x10^3 (test code 0.94 10*3/uL 0.33-0.92 H = 742-7) EOS x10^3 (test code = 0.14 10*3/uL 0.03-0.39 711-2) BASO x10^3 (test code 0.11 10*3/uL 0.01-0.07 H = 704-7) Lab Interpretation Abnormal (test code = 32973-4) [facility]2021-11-23 20:17:33 Test Item Value Reference Range Interpretation Comments POCT GLU (test code = 111 mg/dL 70-110 H Notifi ed Provider 5806223592) Lab Interpretation (test Abnormal code = 15135-8) [facility], THINPREP, [id number] 00:00:00 Test Item Value Reference Range Interpretation Comments SOURCE: (test code = Endocervical 8001) SLIDES: (test code = 1 8011) LMP: (test code = 8021) 06/03/2021 SPECIMEN ADEQUACY: (test (NOTE) code = 57938) INTERPRETATION: (test ASCUS/EPITH. code = 27184) ABNORMALITY; SEE BELOW GARMENT STEAMER: (test Anusha code = 8101) CHANA Sepulveda(ASCP)IAC PATHOLOGIST Nahid Russell, INTERPRETATION BY: (test M.D. code = 8122) LOCATION: (test code = (NOTE) 90832) CPT: (test code = 8140) (NOTE) PAP TEST, THINPREP, [id number] 00:00:00 Test Item Value Reference Range Interpretation Comments SOURCE: (test code = Endocervical 8001) SLIDES: (test code = 1 8011) LMP: (test code = 8021) 06/03/2021 SPECIMEN ADEQUACY: (test (NOTE) code = 66746) INTERPRETATION: (test ASCUS/EPITH. code = 09993) ABNORMALITY; SEE BELOW GARMENT STEAMER: (test Anusha code = 8101) CHANA Sepulveda(ASCP)IAC PATHOLOGIST Nahid Russell, INTERPRETATION BY: (test M.D. code = 8122) LOCATION: (test code = (NOTE) 95731) CPT: (test code = 8140) (NOTE) PAP TEST, THINPREP, [id number] 00:00:00 Test Item Value Reference Range Interpretation Comments SOURCE: (test code = Endocervical 8001) SLIDES: (test code = 1 8011) LMP: (test code = 8021) 06/03/2021 SPECIMEN ADEQUACY: (test (NOTE) code = 30357) INTERPRETATION: (test ASCUS/EPITH. code = 14218) ABNORMALITY; SEE BELOW GARMENT STEAMER: (test Anusha code = 8101) CHANA Sepulveda(ASCP)[facility] PATHOLOGIST Nahid Russell, INTERPRETATION BY: (test M.D. code = 8122) LOCATION: (test code = (NOTE) 83006) CPT: (test code = 8140) (NOTE) PAP TEST, THINPREP, [id number] 00:00:00 Test Item Value Reference Range Interpretation Comments SOURCE: (test code = Endocervical 8001) SLIDES: (test code = 1 8011) LMP: (test code = 8021) 06/03/2021 SPECIMEN ADEQUACY: (test (NOTE) code = 75891) INTERPRETATION: (test ASCUS/EPITH. code = 81541) ABNORMALITY; SEE BELOW GARMENT STEAMER: (test Anusha code = 8101) CHANA Sepulveda(ASCP)[facility] PATHOLOGIST Nahid Russell, INTERPRETATION BY: (test M.D. code = 8122) LOCATION: (test code = (NOTE) 96509) CPT: (test code = 8140) (NOTE) HPV HIGH RISK WITH GENOTYPE, [id number] 00:00:00 Test Item Value Reference Range Interpretation Comments HPV HIGH RISK INTERP (test code = POSITIVE 09078) HPV 16 (test code = 98152) POSITIVE HPV 18 (test code = 37032) NEGATIVE HPV, HR, OTHER GENOTYPES (test code POSITIVE = 64163) HPV HIGH RISK WITH GENOTYPE, [id number] 00:00:00 Test Item Value Reference Range Interpretation Comments HPV HIGH RISK INTERP (test code = POSITIVE 96240) HPV 16 (test code = 41764) POSITIVE HPV 18 (test code = 61240) NEGATIVE HPV, HR, OTHER GENOTYPES (test code POSITIVE = 54539) HPV HIGH RISK WITH GENOTYPE, [id number] 00:00:00 Test Item Value Reference Range Interpretation Comments HPV HIGH RISK INTERP (test code = POSITIVE 21744) HPV 16 (test code = 72103) POSITIVE HPV 18 (test code = 11229) NEGATIVE HPV, HR, OTHER GENOTYPES (test code POSITIVE = 46003) HPV HIGH RISK WITH GENOTYPE, [id number] 00:00:00 Test Item Value Reference Range Interpretation Comments HPV HIGH RISK INTERP (test code = POSITIVE 45551) HPV 16 (test code = 67101) POSITIVE HPV 18 (test code = 32660) NEGATIVE HPV, HR, OTHER GENOTYPES (test code POSITIVE = 74208) [id number] 03:22:48 Test Item Value Reference Range Interpretation Comments APPEARANCE (test code = Hazy Clear A 1339676110) COLOR (test code = Yellow Yellow 3119329711) PH (test code = 4.8-8.0 2559042792) SP GRAVITY (test code = 1.003-1.030 6962335252) GLU U QUAL (test code = Normal Normal 7238049667) BLOOD (test code = Negative Negative Interfere nce from 7715746993) ascorbic acid m ay cause false neg ative results. KETONES (test code = 5 mg/dL Negative A 1641439445) PROTEIN (test code = Negative Negative 2887-8) UROBILIN (test code = 4.0 mg/dL Normal A 5102800578) BILIRUBIN (test code = Negative Negative 3188244390) NITRITE (test code = Negative Negative 9315184169) LEUK GRUPO (test code = Negative Negative 6549520280) RBC/HPF (test code = See_Comment [Autom ated message] 6252379809) The system Style [employer] generated this result transmitted ref erence range: 0 - 3 HP F. The reference range was not used to int erpret this result as normal/abnormal . WBC/HPF (test code = <1 See_Comment [Autom ated message] 6954049467) The system Style [employer] generated this result transmitted ref erence range: 0 - 5 HP F. The reference range was not used to int erpret this result as normal/abnormal . BACTERIA (test code = Few Negative A 9995366524) SQ EPITH (test code = HPF 0285082795) Lab Interpretation Abnormal (test code = 28844-0) [facility] 03:22:48 Test Item Value Reference Range Interpretation Comments APPEARANCE (test code = Hazy Clear A 5023623287) COLOR (test code = Yellow Yellow 0153402894) PH (test code = 4.8-8.0 6212142304) SP GRAVITY (test code = 1.003-1.030 7654290535) GLU U QUAL (test code = Normal Normal 2422889491) BLOOD (test code = Negative Negative 6267820128) KETONES (test code = 5 mg/dL Negative A 6999923033) PROTEIN (test code = Negative Negative 2887-8) UROBILIN (test code = 4.0 mg/dL Normal A 0564905307) BILIRUBIN (test code = Negative Negative 0407051109) NITRITE (test code = Negative Negative 8163212238) LEUK GRUPO (test code = Negative Negative 7222202356) RBC/HPF (test code = See_Comment [Autom ated message] 6278542853) The system Style [employer] generated this result transmit sherice reference range : 0 - 3 HPF. The refe rence range was not u sed to interpret th is result as normal/abnormal . WBC/HPF (test code = <1 See_Comment [Autom ated message] 7913540735) The system Style [employer] generated this result transmit sherice reference range : 0 - 5 HPF. The refe rence range was not u sed to interpret th is result as normal/abnormal . BACTERIA (test code = Few Negative A 5667893945) SQ EPITH (test code = HPF 1702625374) Lab Interpretation (test Abnormal code = 42288-7) [facility] [id number] 02:45:00 Test Item Value Reference Interpretation Comments Range TROPONIN I (test 0.002 ng/mL See_Comment [Automated code = 0680550984) message] The system which generated this result [...] biotin. Lab Interpretation Normal (test code = 76475-3) [facility] [id number] 02:45:00 Test Item Value Reference Range Interpretation Comments TROPONIN I (test code = 0.002 ng/mL See_Comment [Au tomated 2321996972) message] The sy stem which generated this result transmitted reference range : <=0.034. The reference range was not used to interpret this result as normal/abnormal . LYNDSAY (test code = LYNDSAY) Lab Interpretation Normal (test code = 45331-1) [facility] [id number] 02:41:57 Test Item Value Reference Range Interpretation Comments NT-proBNP (test code 169 pg/mL See_Comment H [Autom ated = 6434559759) message] The system which generated this result transmitted reference range : <=125. The reference range was not used to interpret this result as normal/abnormal . LYNDSAY (test code = LYNDSAY) Biotin has been reported to cause a negative bias, interpret results relative to patient's use of biotin. Lab Interpretation Abnormal (test code = 81179-1) [facility] [id number] 02:41:57 Test Item Value Reference Range Interpretation Comments NT-proBNP (test code = 169 pg/mL See_Comment H [Aut omated message] 0696962628) The system Style [employer] generated this result transmit sherice reference range : <=125. The refe rence range was not u sed to interpret th is result as normal/abnormal . LYNDSAY (test code = LYNDSAY) Lab Interpretation (test Abnormal code = 44562-7) [facility]. METABOLIC PANEL (80304)2021-03-17 02:09:13 Test Item Value Reference Range Interpretation Comments NA (test code = 137 mmol/L 135-145 6868177792) K (test code = 4.2 mmol/L 3.5-5.0 9420982416) CL (test code = 102 mmol/L 98-108 0386036037) CO2 TOTAL (test code = 25 mmol/L 23-31 4403095747) AGAP (test code = 2-16 7400158891) BUN (test code = 18 mg/dL 7-23 5587558513) GLUCOSE (test code = 144 mg/dL 70-110 H 3836030760) CREATININE (test code = 0.77 mg/dL 0.50-1.04 4071262883) TOTAL BILI (test code = 0.4 mg/dL 0.1-1.5 1657274603) CALCIUM (test code = 8.9 mg/dL 8.6-10.6 4382932528) T PROTEIN (test code = 6.8 g/dL 6.3-8.2 3147006325) ALBUMIN (test code = 3.9 g/dL 3.5-5.0 1828312009) ALK PHOS (test code = 84 U/L 34-122 1927167958) ALTv (test code = 13 U/L 5-35 1742-6) AST(SGOT) (test code = 17 U/L 13-40 2651783263) eGFR (test code = mL/min/1.73m2 1276379342) LYNDSAY (test code = LYNDSAY) Association of [...] tests). Lab Interpretation Abnormal (test code = 45348-6) [facility]. METABOLIC PANEL (23951)2021-03-17 02:09:13 Test Item Value Reference Range Interpretation Comments NA (test code = 1204165026) 137 mmol/L 135-145 K (test code = 7955271558) 4.2 mmol/L 3.5-5.0 CL (test code = 0339251244) 102 mmol/L 98-108 CO2 TOTAL (test code = 3086895783) 25 mmol/L 23-31 AGAP (test code = 9507550404) 2-16 BUN (test code = 2520454019) 18 mg/dL 7-23 GLUCOSE (test code = 7027647931) 144 mg/dL 70-110 H CREATININE (test code = 0.77 mg/dL 0.50-1.04 0643267799) TOTAL BILI (test code = 0.4 mg/dL 0.1-1.3 5114591442) CALCIUM (test code = 9348161540) 8.9 mg/dL 8.6-10.6 T PROTEIN (test code = 8434150941) 6.8 g/dL 6.3-8.2 ALBUMIN (test code = 5293581508) 3.9 g/dL 3.5-5.0 ALK PHOS (test code = 4876916437) 84 U/L 34-122 ALTv (test code = 1742-6) 13 U/L 5-35 AST(SGOT) (test code = 1133721436) 17 U/L 13-40 eGFR (test code = 2323823928) mL/min/1.73m2 LYNDSAY (test code = LYNDSAY) Lab Interpretation (test code = Abnormal 17905-6) [facility] WITH [id number] 01:56:33 Test Item Value Reference Range Interpretation [...] (test code = 55.5 fL 39.0-49.9 H 77255-6) RDW-CV (test code = 18.9 % 12.0-15.5 H 788-0) PLT (test code = See_Comment H [Automated 777-3) message] The sy stem which generated this result transmitted reference range : 166 - 358 10*3/ ?L. The reference r zoe was not used to interpret this result as normal/abnormal . MPV (test code = 8.2 fL 9.5-12.9 L 33719-7) NRBC/100 WBC (test See_Comment [Automat ed code = 0398589396) message] The system which generated this result transmitted reference range : 0.0 - 10.0 /100 WBCs. The refer ence range was not u sed to interpret th is result as normal/abnormal . NRBC x10^3 (test code <0.01 See_Comment [Auto mated = 0442175793) message] The s ystem which generated this result transmitted reference range : 10*3/?L. The reference range was not used to interpret this result as normal/abnormal . GRAN MAT (NEUT) % 61.7 % (test code = 770-8) IMM GRAN % (test code 0.80 % = 4307443662) LYMPH % (test code = 28.5 % 736-9) MONO % (test code = 6.3 % 5905-5) EOS % (test code = 1.8 % 713-8) BASO % (test code = 0.9 % 706-2) GRAN MAT x10^3(ANC) 7.31 10*3/uL 1.88-7.09 H (test code = 9825536649) IMM GRAN x10^3 (test 0.09 10*3/uL 0.00-0.06 H code = 2060427283) LYMPH x10^3 (test code 3.38 10*3/uL 1.32-3.29 H = 731-0) MONO x10^3 (test code 0.75 10*3/uL 0.33-0.92 = 742-7) EOS x10^3 (test code = 0.21 10*3/uL 0.03-0.39 711-2) BASO x10^3 (test code 0.11 10*3/uL 0.01-0.07 H = 704-7) Lab Interpretation Abnormal (test code = 39024-7) [facility] WITH [id number] 01:56:33 Test Item Value Reference Range Interpretation [...] (test code = 55.5 fL 39.0-49.9 H 59646-9) RDW-CV (test code = 18.9 % 12.0-15.5 H 788-0) PLT (test code = See_Comment H [Automated 777-3) message] The sy stem which generated this result transmitted reference range : 166 - 358 10*3/ ?L. The reference r zoe was not used to interpret this result as normal/abnormal . MPV (test code = 8.2 fL 9.5-12.9 L 00584-1) NRBC/100 WBC (test See_Comment [Automat ed code = 2681791654) message] The system which generated this result transmitted reference range : 0.0 - 10.0 /100 WBCs. The refer ence range was not u sed to interpret th is result as normal/abnormal . NRBC x10^3 (test code <0.01 See_Comment [Auto mated = 0642340053) message] The s ystem which generated this result transmitted reference range : 10*3/?L. The reference range was not used to interpret this result as normal/abnormal . GRAN MAT (NEUT) % 61.7 % (test code = 770-8) IMM GRAN % (test code 0.80 % = 5215425531) LYMPH % (test code = 28.5 % 736-9) MONO % (test code = 6.3 % 5905-5) EOS % (test code = 1.8 % 713-8) BASO % (test code = 0.9 % 706-2) GRAN MAT x10^3(ANC) 7.31 10*3/uL 1.88-7.09 H (test code = 7643748872) IMM GRAN x10^3 (test 0.09 10*3/uL 0.00-0.06 H code = 7225719202) LYMPH x10^3 (test code 3.38 10*3/uL 1.32-3.29 H = 731-0) MONO x10^3 (test code 0.75 10*3/uL 0.33-0.92 = 742-7) EOS x10^3 (test code = 0.21 10*3/uL 0.03-0.39 711-2) BASO x10^3 (test code 0.11 10*3/uL 0.01-0.07 H = 704-7) Lab Interpretation Abnormal (test code = 18304-1) [facility]-19 (ID NOW RAPID TESTING)2021-03-17 01:38:12 Test Item Value Reference Range Interpretation Comments SARS-CoV-2 Rapid ID NOW Not Detected Not Detected (test code = 96371-7) LYNDSAY (test code = LYNDSAY) ID NOW COVID-19 Assay is an isothermal nucleic acid amplification test intended for the qualitative detection of nucleic acid from SARS-CoV-2 viral RNA in nasopharyngeal ([employer]) specimens. It is used under Emergency Use [...] indicated. Lab Interpretation Normal (test code = 35764-1) [facility]-19 (ID NOW RAPID TESTING)2021-03-17 01:38:12 Test Item Value Reference Range Interpretation Comments SARS-CoV-2 Rapid ID NOW (test Not Detected Not Detected code = 24025-5) LYNDSAY (test code = LYNDSAY) Lab Interpretation (test code = Normal 91162-6) [facility] NOW RAPID TESTING)2021-02-19 17:42:45 Test Item Value Reference Range Interpretation Comments SARS-CoV-2 Rapid ID NOW Not Detected Not Detected (test code = 49630-1) LYNDSAY (test code = LYNDSAY) ID NOW COVID-19 Assay is an isothermal nucleic acid amplification test intended for the qualitative detection of nucleic acid from SARS-CoV-2 viral RNA in nasopharyngeal ([employer]) specimens. It is used under Emergency Use [...] indicated. Lab Interpretation Normal (test code = 87863-0) [facility] W [id number] 17:24:55Thickening of the gastric antrum and duodenal bulb could be fromunderdistention, the differential would include sequela of peptic ulcerdisease. No findings of ulcer perforation. Otherwise, no acute intra- abdominal or pelvic abnormality. Stable thickening and nodularity of the left adrenal gland. RL: 8722 Patient name: EUSEBIA TURNERSHY: 1970 51 years EXAMINATION: CT ABDOMEN PELVIS [...] nodularity of the left adrenal gland.RL: 8722 [facility]inalysis2021-08-[facility] 17:03:40 Test Item Value Reference Range Interpretation Comments APPEARANCE (test code = Hazy Clear A 3933294364) COLOR (test code = Mabel Yellow A 7829969216) PH (test code = 4.8-8.0 8245872621) SP GRAVITY (test code = 1.003-1.030 H 7209551847) GLU U QUAL (test code = Normal Normal 8981933343) BLOOD (test code = Negative Negative 3344856755) KETONES (test code = 5 mg/dL Negative A 4122255982) PROTEIN (test code = 30 mg/dL Negative A 2887-8) UROBILIN (test code = 4.0 mg/dL Normal A 6477244190) BILIRUBIN (test code = 4 mg/dL Negative A 1617190193) NITRITE (test code = Negative Negative 2197899327) LEUK GRUPO (test code = Negative Negative 2937123134) RBC/HPF (test code = See_Comment H [Autom ated message] 6085910313) The system Style [employer] generated this result transmit sherice reference range : 0 - 3 HPF. The refe rence range was not u sed to interpret th is result as normal/abnormal . WBC/HPF (test code = See_Comment H [Autom ated message] 2021969814) The system Style [employer] generated this result transmit sherice reference range : 0 - 5 HPF. The refe rence range was not u sed to interpret th is result as normal/abnormal . BACTERIA (test code = Few Negative A 5542920006) MUCOUS (test code = Moderate Negative LPF A 9933743867) SQ EPITH (test code = HPF 1767619806) CA OXALATE (test code = See_Comment H [Au tomated message] 9010095526) The system Style [employer] generated this result transmit sherice reference range : <=1 HPF. The refere nce range was not u sed to interpret th is result as normal/abnormal . Ictotest (test code = Negative 2517648096) Lab Interpretation (test Abnormal code = 84969-2) [facility] Metabolic [id number] 16:34:55 Test Item Value Reference Range Interpretation Comments NA (test code = 139 mmol/L 135-145 1405788904) K (test code = 4.3 mmol/L 3.5-5.0 9604167022) CL (test code = 105 mmol/L 98-108 9130196353) CO2 TOTAL (test code 26 mmol/L 23-31 = 0699732081) AGAP (test code = 2-16 8937146308) BUN (test code = 11 mg/dL 7-23 2637271598) GLUCOSE (test code = 95 mg/dL 70-110 0905288714) CREATININE (test code 0.70 mg/dL 0.50-1.04 = 0605230316) TOTAL BILI (test code 0.6 mg/dL 0.1-1.1 = 7369441136) CALCIUM (test code = 8.9 mg/dL 8.6-10.6 3704169846) T PROTEIN (test code 7.7 g/dL 6.3-8.2 = 5006508955) ALBUMIN (test code = 4.1 g/dL 3.5-5.0 6735103167) ALK PHOS (test code = 79 U/L 34-122 5124283898) ALTv (test code = 10 U/L 5-35 1742-6) AST(SGOT) (test code 22 U/L 13-40 = 1179029551) eGFR (test code = mL/min/1.73m2 9685368700) LYNDSAY (test code = LYNDSAY) Association of [...] or urine or abnormalities in imaging tests). [facility] HospitalLip[facility], [id number] 16:34:14 Test Item Value Reference Range Interpretation Comments LIPASE (test code = 3990963246) 45 U/L 0-220 Lab Interpretation (test code = Normal 11661-1) [facility] with [id number] 16:21:12 Test Item Value Reference Range Interpretation Comments WBC (test code = See_Comment [Automated 1616-2) message] The sy stem which generated this result transmitted reference range : 4.30 - 11.10 10*3/?L. The reference range was not used to interpret this result as normal/abnormal . RBC (test code = See_Comment [Automated 431-5) message] The sy stem which generated this [...] (test code = 54.4 fL 39.0-49.9 H 50703-5) RDW-CV (test code = 18.3 % 12.0-15.5 H 788-0) PLT (test code = See_Comment H [Automated 777-3) message] The sy stem which generated this result transmitted reference range : 166 - 358 10*3/ ?L. The reference r zoe was not used to interpret this result as normal/abnormal . MPV (test code = 8.5 fL 9.5-12.9 L 89372-4) NRBC/100 WBC (test See_Comment [Automat ed code = 3209717063) message] The system which generated this result transmitted reference range : 0.0 - 10.0 /100 WBCs. The refer ence range was not u sed to interpret th is result as normal/abnormal . NRBC x10^3 (test code <0.01 See_Comment [Auto mated = 3719921935) message] The s ystem which generated this result transmitted reference range : 10*3/?L. The reference range was not used to interpret this result as normal/abnormal . GRAN MAT (NEUT) % 78.3 % (test code = 770-8) IMM GRAN % (test code 0.40 % = 3538556900) LYMPH % (test code = 15.4 % 736-9) MONO % (test code = 4.8 % 5905-5) EOS % (test code = 0.1 % 713-8) BASO % (test code = 1.0 % 706-2) GRAN MAT x10^3(ANC) 7.15 10*3/uL 1.88-7.09 H (test code = 9559684051) IMM GRAN x10^3 (test 0.04 10*3/uL 0.00-0.06 code = 6257651848) LYMPH x10^3 (test code 1.41 10*3/uL 1.32-3.29 = 731-0) MONO x10^3 (test code 0.44 10*3/uL 0.33-0.92 = 742-7) EOS x10^3 (test code = <0.03 0.03-0.39 L 711-2) BASO x10^3 (test code 0.09 10*3/uL 0.01-0.07 H = 704-7) Lab Interpretation Abnormal (test code = 50754-2) [facility]
[2022-11-13] MEDS ORDERED: LORazepam 2 MG/ML VIAL ONE (00:52)
[2022-11-13] MEDS ORDERED: MORPHINE 4 MG/ML SYR ONE ×2 (01:23→03:59)
[2022-11-13] MEDS ORDERED: ONDANSETRON 4 MG/2 ML VIAL ONE (01:23)
[2022-11-13 01:24] LABS: Absolute Lymphocytes (CBC) 2.3 K/uL (0.7-4.9); Hematocrit 35.3 % (36.0-45.0); Lymphocytes % 22.3 % (15.3-44.8); MCV 79.6 fL (80-100); MPV 6.5 fL (7.6-11.3); RBC Red Blood Cell Count 4.43 M/uL (3.86-4.86)
[2022-11-13 01:59] LABS: ALT/SGPT 19 U/L (13-56); AST/SGOT 12 U/L (15-37); Albumin 3.5 g/dL (3.4-5.0); Alkaline Phosphatase 77 U/L (45-117); BUN Blood Urea Nitrogen 16 mg/dL (7-18); Bicarbonate 27 mEq/L (21-32); Bilirubin Total 0.2 mg/dL (0.2-1.0); Glomerular Filtration Rate 62 ml/min (=/>90); Glucose Level 122 mg/dL (74-106); Magnesium 1.9 mg/dL (1.6-2.4); NT PRO-BNP 1038 pg/mL (<125); Potassium 3.2 mEq/L (3.5-5.1); Sodium Level 137 mEq/L (136-145); Troponin High Sensitivity 16.7 pg/mL (<58.9)
[2022-11-13 02:07] LABS: Bilirubin Direct < 0.1 mg/dL (0-0.2)
[2022-11-13] MEDS ORDERED: PROMETHAZINE INJ 25 MG/ML AMP ONE (03:15)
[2022-11-13] MEDS ORDERED: NA CHLORIDE 0.9% 250 ML ONE ×2 (03:15→04:24)
[2022-11-13] MEDS ORDERED: KCL 20 MEQ/100 mL IVPB 100 ML IV ONE (03:17)
[2022-11-13] MEDS ORDERED: POTASSIUM 25 MEQ EFFERV TAB ONE (03:59)
[2022-11-13 05:03] LABS: Barbiturates NEGATIVE (NEGATIVE); Benzodiazepines NEGATIVE (NEGATIVE); Cocaine NEGATIVE (NEGATIVE); METHAMPHETAM NEGATIVE (NEGATIVE); Methadone NEGATIVE (NEGATIVE); Opiates POSITIVE (NEGATIVE); Phencyclidine NEGATIVE (NEGATIVE); THC Cannibis POSITIVE (NEGATIVE)
[2022-11-13 05:08] LABS: Specific Gravity 1.021 (1.005-1.030); Urine Bacteria None Seen /HPF (<20); Urine Bilirubin NEGATIVE (Negative); Urine Blood Negative (Negative); Urine Clarity Extremely Turbid (Clear); Urine Color Yellow (Yellow); Urine Glucose NEGATIVE (Negative); Urine Protein TRACE (Negative); Urine RBC <5 /HPF (None Seen); Urine Urobilinogen Normal (Normal); Urine pH 7.5 (5.0-7.0)
--- NOTE | 2022-11-13 05:23 | ER ---
Nurse's Notes [facility] Name: Heather Coon Age: 52 yrs Sex: Female : 1970 Arrival Date: 11/13/2022 Time: 00:36 Bed 8 Private MD: Diagnosis: Chest pain, unspecified;Other seizures;Hypokalemia Presentation: 11/13 00:42 Chief complaint: EMS states: left sided chest pain radiating into neck and left arm. lg3 onset 2200. seizure activity in route followed by nausea and vomiting. Coronavirus screen: Client denies travel out of the [place] in the last 14 days. At this time, the client does not indicate any symptoms associated with coronavirus-19. Ebola Screen: No symptoms or risks identified at this time. Initial Sepsis Screen: Does the patient meet any 2 criteria? No. Patient's initial sepsis screen is negative. Does the patient have a suspected source of infection? No. Patient's initial sepsis screen is negative. Risk Assessment: Do you want to hurt yourself or someone else? Patient reports no desire to harm self or others. Onset of symptoms was November 12, 2022. 00:42 Method Of Arrival: EMS: [facility] lg3 00:42 Acuity: ANDER 3 lg3 Triage Assessment: 01:06 General: Appears in no apparent distress. uncomfortable, Behavior is calm, cooperative. lg3 Pain: Complains of pain in chest Pain radiates to left arm. EENT: No deficits noted. No signs and/or symptoms were reported regarding the EENT system. Neuro: No deficits noted. Davis Agitation-Sedation Scale (RASS): 0 - Alert and Calm Level of Consciousness is awake, alert, obeys commands, Oriented to person, place, time, situation. Cardiovascular: No deficits noted. Reports chest pain, nausea, Capillary refill < 3 seconds Clubbing of nail beds is absent JVD is absent Patient's skin is warm and dry. Rhythm is sinus tachycardia. Respiratory: No deficits noted. Airway is patent Trachea midline Respiratory effort is even, unlabored, Respiratory pattern is tachypnea. GI: Abdomen is round non-distended, obese, Pt is actively vomiting Bowel sounds present X 4 quads. Abd is soft and non tender X 4 quads. : No deficits noted. No signs and/or symptoms were reported regarding the genitourinary system. Derm: No deficits noted. No signs and/or symptoms reported regarding the dermatologic system. Skin is intact, is healthy with good turgor, Skin is dry, Skin is normal, Skin temperature is warm. Musculoskeletal: No deficits noted. Circulation, motion, and sensation intact. Range of motion: intact in all extremities. ARMATURE AND ROTOR WINDER: 01:06 LMP 10/2022 lg3 Historical: - Allergies: 01:06 fluoxetine; lg3 01:06 Green Tea; lg3 01:06 Keppra; lg3 - Home Meds: 01:06 atorvastatin oral [Active]; losartan oral [Active]; Metoprolol Tartrate Oral [Active]; lg3 Nitroglycerin SL [Active]; Spironolactone Oral [Active]; - PMHx: 01:06 Anxiety; Bipolar disorder; Cancer-Cervical; Chronic obstructive lung disease; Chronic lg3 pain; Congestive heart failure; Depression; Diverticulitis; Herniated Back Disc; Hypertension; intestinal mass; Myocardial infarction; pt reports hx of seizures; Spastic Muscles; stroke; - PSHx: 01:06 cervical fusion; Cholecystectomy; foot; Tonsillectomy; lg3 - Immunization history:: Adult Immunizations up to date, Client reports receiving the 2nd dose of the Covid vaccine, Pneumococcal vaccine is up to date, Flu vaccine is up to date. - Social history:: Smoking status: Patient reports the use of cigarette tobacco products, smokes one pack cigarettes per day. Patient uses alcohol, weekly. admits to "couple of beers" a day. street drugs, marijuana. Screenin:11 [facility] ED Fall Risk Assessment (Adult) History of falling in the last 3 months, lg3 including since admission No falls in past 3 months (0 pts). Abuse screen: Denies threats or abuse. Denies injuries from another. Nutritional screening: No deficits noted. Tuberculosis screening: No symptoms or risk factors identified. Assessment: 00:49 Neuro: Seizure activity noted at this time. Seizure lasted approximately 1 minutes. aa9 01:09 General: see triage assessment. lg3 01:10 Neuro: Davis Agitation-Sedation Scale (RASS): 0 - Alert and Calm. lg3 02:16 Reassessment: Patient appears in no apparent distress at this time. General: Appears lg3 comfortable, Behavior is calm, cooperative. Neuro: Davis Agitation-Sedation Scale (RASS): 0 - Alert and Calm Level of Consciousness is awake, alert, obeys commands, Oriented to person, place, time, situation. Cardiovascular: No deficits noted. Respiratory: No deficits noted. Airway is patent Respiratory effort is even, unlabored, Respiratory pattern is regular, symmetrical. 02:59 GI: Pt is actively vomiting bile. aa9 03:21 Reassessment: Patient states symptoms have improved. aa9 04:28 Reassessment: Patient appears in no apparent distress at this time. Patient and/or aa9 family updated on plan of care and expected duration. Pain level reassessed. Patient is alert, oriented x 3, equal unlabored respirations, skin warm/dry/pink. 04:40 Reassessment: Patient appears in no apparent distress at this time. IV site aa9 infiltration, IV site warm to touch, pt states,"Its burning and it hurts when you touch it.". 06:00 Reassessment: Patient appears in no apparent distress at this time. Patient and/or aa9 family updated on plan of care and expected duration. Pain level reassessed. Patient is alert, oriented x 3, equal unlabored respirations, skin warm/dry/pink. Vital Signs: 00:42 BP 156 / 87; Pulse 125; Resp 22; Temp 98.9(O); Pulse Ox 98% on 2 lpm NC; Weight 99.79 lg3 kg (R); Height 5 ft. 3 in. (R); 02:17 BP 117 / 53; Pulse 105; Resp 23; Pulse Ox 94% on R/A; lg3 02:30 BP 117 / 53; Pulse 98; Resp 19 S; Pulse Ox 96% on 2 lpm NC; aa9 02:45 BP 118 / 82; Pulse 106; Resp 17; Pulse Ox 97% on 2 lpm NC; aa9 03:00 BP 163 / 92; Pulse 99; Resp 14 S; Pulse Ox 98% on 2 lpm NC; aa9 06:00 BP 132 / 82; Pulse 89; Resp 18; Temp 98.9; Pulse Ox 99% on R/A; aa9 00:42 Body Mass Index 38.97 (99.79 kg, 160.02 cm) lg3 ED Course: 00:37 Patient arrived in ED. la1 00:40 Derrick Castillo PA is PHCP. cp 00:40 Derrick Santillan MD is Attending Physician. cp 00:42 Dina Reyes, BETH is Primary Nurse. lg3 00:59 Triage completed. lg3 01:06 Arm band placed on right wrist. lg3 01:11 Patient has correct armband on for positive identification. Placed in gown. Bed in low lg3 position. Call light in reach. Side rails up X 1. Seizure precautions initiated. Client placed on continuous cardiac and pulse oximetry monitoring. NIBP monitoring applied. property assessment monitor on. Door closed. Noise minimized. Warm blanket given. 01:11 Inserted saline lock: 20 gauge in right forearm, using aseptic technique. Blood lg3 collected. 01:21 XRAY Chest (1 view) In Process Unspecified. EDMS 04:47 Troponin High Sensitivity: 3 hr repeat Sent. aa9 04:47 Urinalysis W/Microscopic Sent. aa9 04:47 UDS Sent. aa9 04:47 Inserted saline lock: 20 gauge in left forearm, using aseptic technique. aa9 05:22 Saad Leavitt MD is Referral Physician. fabrice 06:00 No provider procedures requiring assistance completed. IV discontinued, intact, aa9 bleeding controlled, No redness/swelling at site. Pressure dressing applied. Administered Medications: 01:12 Drug: Aspirin PO Chewable Tablet 324 mg Route: PO; lg3 01:12 Drug: Ativan IVP 1 mg Route: IVP; Site: right forearm; lg3 05:40 Follow up: Response: No adverse reaction aa9 01:21 Drug: Ondansetron IVP 4 mg Route: IVP; Site: right forearm; lg3 03:09 Follow up: Response: No adverse reaction aa9 01:21 Drug: morphine IVP or IV 4 mg Route: IVP; Infused Over: 4 mins; Site: right forearm; lg3 05:40 Follow up: Response: No adverse reaction aa9 03:09 Drug: NS 0.9% IV 250 ml Route: IV; Rate: bolus; Site: right forearm; aa9 03:19 Drug: Promethazine IVP 25 mg Route: IVP; Site: right forearm; aa9 05:40 Follow up: Response: No adverse reaction aa9 03:20 Drug: Potassium Chloride IV 20 mEq Route: IV; Rate: calculated rate; Site: right aa9 forearm; 05:39 Follow up: Response: No adverse reaction; IV Status: Completed infusion; IV Intake: aa9 100ml 03:59 Drug: Potassium PO Effervescent Tablet 50 mEq Route: PO; aa9 05:39 Follow up: Response: No adverse reaction aa9 03:59 Drug: morphine IVP or IV 4 mg Route: IVP; Infused Over: 4 mins; Site: right forearm; aa9 05:39 Follow up: Response: No adverse reaction aa9 Medication: 06:00 VIS not applicable for this client. aa9 Intake: 05:39 IV: 100ml; Total: 100ml. aa9 Outcome: 05:22 Discharge ordered by . fabrice 06:00 Discharged to home via wheelchair. aa9 06:00 Condition: stable 06:00 Discharge instructions given to patient, Instructed on discharge instructions, follow up and referral plans. medication usage, Demonstrated understanding of instructions, follow-up care, medications, Prescriptions given X 1. 06:01 Patient left the ED. aa9 Signatures: Dispatcher [employer] EDMS Derrick Santillan MD MD cha Attema, Lee, CONGREGATIONAL CARE PASTOR-C CONGREGATIONAL CARE PASTOR-Cla1 Derirck Castillo PA PA cp Gibson, Lacie, BETH RN lg3 Irene Murrieta, BETH RN aa9 Corrections: (The following items were deleted from the chart) 01:05 00:46 Neuro: Seizure activity noted at this time. Seizure lasted approximately 1 aa9 minutes. aa9
--- NOTE | 2022-11-13 05:23 | EDPHYS ---
Physician Documentation [facility] Name: Heather Coon Age: 52 yrs Sex: Female : 1970 Arrival Date: 11/13/2022 Time: 00:36 Bed 8 Private MD: ED Physician Derrick Santillan HPI: 11/13 01:00 This 52 yrs old Female presents to ER via EMS with complaints of Chest Pain. cp 01:00 The patient or guardian reports chest pain that is located primarily in the substernal cp area. 01:00 Onset: last night, about 2200. The pain radiates to the left arm, left neck. Associated cp signs and symptoms: Pertinent positives: nausea, shortness of breath, vomiting, Pertinent negatives: abdominal pain, cough, headache, lower extremity pain, lower extremity swelling, syncope. 01:00 The chest pain is described as aching. cp 01:00 Duration: The patient or guardian reports a single episode, that is still ongoing, and cp unchanged. Severity of pain: in the emergency department the pain is unchanged despite EMS interventions. EMS reports patient having seizure while enroute. Patient with known seizure disorder and multiple visits to this ED for chest pain. PHYSICIAN PRESIDENT: 01:06 LMP 10/2022 lg3 Historical: - Allergies: 01:06 fluoxetine; lg3 01:06 Green Tea; lg3 01:06 Keppra; lg3 - Home Meds: 01:06 atorvastatin oral [Active]; losartan oral [Active]; Metoprolol Tartrate Oral [Active]; lg3 Nitroglycerin SL [Active]; Spironolactone Oral [Active]; - PMHx: 01:06 Anxiety; Bipolar disorder; Cancer-Cervical; Chronic obstructive lung disease; Chronic lg3 pain; Congestive heart failure; Depression; Diverticulitis; Herniated Back Disc; Hypertension; intestinal mass; Myocardial infarction; pt reports hx of seizures; Spastic Muscles; stroke; - PSHx: 01:06 cervical fusion; Cholecystectomy; foot; Tonsillectomy; lg3 - Immunization history:: Adult Immunizations up to date, Client reports receiving the 2nd dose of the Covid vaccine, Pneumococcal vaccine is up to date, Flu vaccine is up to date. - Social history:: Smoking status: Patient reports the use of cigarette tobacco products, smokes one pack cigarettes per day. Patient uses alcohol, weekly. admits to "couple of beers" a day. street drugs, marijuana. ROS: 01:05 Constitutional: Negative for body aches, chills, fever, poor PO intake. cp 01:05 Cardiovascular: Positive for chest pain, Negative for edema, palpitations. cp 01:05 Neuro: Positive for history of seizure. 01:05 Eyes: Negative for injury, pain, redness, and discharge. cp 01:05 ENT: Negative for drainage from ear(s), ear pain, sore throat, difficulty swallowing, cp difficulty handling secretions. 01:05 Respiratory: Positive for shortness of breath, at rest. Negative for cough, wheezing. 01:05 Abdomen/GI: Positive for nausea, vomiting, Negative for abdominal pain, diarrhea, constipation. 01:05 Back: Negative for pain at rest, pain with movement. 01:05 All other systems are negative. Exam: 00:57 ECG was reviewed by the Attending Physician. cp 01:10 Constitutional: The patient appears in no acute distress, alert, awake, cp non-diaphoretic, non-toxic, well developed, well nourished, uncomfortable. 01:10 Head/Face: Normocephalic, atraumatic. cp 01:10 Eyes: Periorbital structures: appear normal, Conjunctiva: normal, no exudate, no injection, Sclera: no appreciated abnormality, Lids and lashes: appear normal, bilaterally. 01:10 ENT: External ear(s): are unremarkable, Nose: is normal, Mouth: Lips: moist, Oral mucosa: pink and intact, moist, Posterior pharynx: is normal, airway is patent, no erythema, no exudate. 01:10 Neck: ROM/movement: Meningeal signs: are not present, nuchal rigidity, is not appreciated. 01:10 Chest/axilla: Inspection: normal. 01:10 Cardiovascular: Rate: tachycardic, Rhythm: regular, Edema: is not appreciated, JVD: is not appreciated. 01:10 Respiratory: the patient does not display signs of respiratory distress, Respirations: normal, no use of accessory muscles, no retractions, labored breathing, is not present, Breath sounds: are clear throughout, no decreased breath sounds, no stridor, no wheezing. 01:10 Abdomen/GI: Inspection: abdomen appears normal, Palpation: abdomen is soft and non-tender, in all quadrants. 01:10 Back: pain, is absent, ROM is normal. 01:10 Neuro: Orientation: to person, place \\T\\ time. Mentation: is normal, Motor: moves all fours, strength is normal, Sensation: is normal. Vital Signs: 00:42 BP 156 / 87; Pulse 125; Resp 22; Temp 98.9(O); Pulse Ox 98% on 2 lpm NC; Weight 99.79 lg3 kg (R); Height 5 ft. 3 in. (R); 02:17 BP 117 / 53; Pulse 105; Resp 23; Pulse Ox 94% on R/A; lg3 02:30 BP 117 / 53; Pulse 98; Resp 19 S; Pulse Ox 96% on 2 lpm NC; aa9 02:45 BP 118 / 82; Pulse 106; Resp 17; Pulse Ox 97% on 2 lpm NC; aa9 03:00 BP 163 / 92; Pulse 99; Resp 14 S; Pulse Ox 98% on 2 lpm NC; aa9 06:00 BP 132 / 82; Pulse 89; Resp 18; Temp 98.9; Pulse Ox 99% on R/A; aa9 00:42 Body Mass Index 38.97 (99.79 kg, 160.02 cm) lg3 MDM: 00:49 Patient medically screened. fabrice 01:00 Differential diagnosis: acute myocardial infarction, acute pericarditis, chest wall cp pain, pleurisy, pneumonia, pneumothorax, stable angina, thoracic aortic disection, unstable angina, chronic pain, drug seeking behavior. 04:00 Data reviewed: vital signs, nurses notes, lab test result(s), EKG, radiologic studies, cp plain films. 04:00 The patient was given aspirin in the Emergency Department. Consideration of cp Admission/Observation Escalation of care including admission/observation considered. Independent interpretation of the following test(s) in the Emergency Department EKG: See my EKG interpretation above X-Ray: My interpretation is chest image negative for infiltrates. Care significantly affected by the following chronic conditions: Congestive Heart Failure, Chronic Obstructive Pulmonary Disease. Transition of care: After a detail discussion of the patient's case, care is transferred to Derrick Santillan MD. 11/13 00:40 Order name: Basic Metabolic Panel; Complete Time: 02:32 cp 11/13 02:32 Interpretation: Normal except: K 3.2; GLUC 122; CRE 1.09; GFR 62. cp 11/13 00:40 Order name: CBC with Diff; Complete Time: 02:32 cp 11/13 02:33 Interpretation: Normal except: HGB 11.4; HCT 35.3; MCV 79.6; MCH 25.6; PLT 466; RDW cp 18.0; MPV 6.5. 11/13 00:40 Order name: LFT's; Complete Time: 02:32 cp 11/13 00:40 Order name: Magnesium; Complete Time: 02:32 cp 11/13 00:40 Order name: NT PRO-BNP; Complete Time: 02:32 cp 11/13 02:33 Interpretation: Abnormal: NT PRO-BNP 1038. cp 11/13 00:40 Order name: PT-INR; Complete Time: 02:32 cp 11/13 00:40 Order name: Troponin HS; Complete Time: 02:32 cp 11/13 02:33 Interpretation: Troponin HS 16.7; Reviewed. cp 11/13 00:40 Order name: UDS; Complete Time: 05:22 cp 11/13 00:40 Order name: Urinalysis W/Microscopic; Complete Time: 05:22 cp 11/13 03:33 Order name: Troponin High Sensitivity: 3 hr repeat; Complete Time: 05:22 cp 11/13 00:40 Order name: XRAY Chest (1 view) cp 11/13 00:40 Order name: EKG; Complete Time: 00:41 cp 11/13 00:40 Order name: Cardiac monitoring; Complete Time: 00:58 cp 11/13 00:40 Order name: EKG - Nurse/Tech; Complete Time: 00:58 cp 11/13 00:40 Order name: IV Saline Lock; Complete Time: 01:12 cp 11/13 00:40 Order name: Labs collected and sent; Complete Time: 01:12 cp 11/13 00:40 Order name: O2 Per Protocol; Complete Time: 00:58 cp 11/13 00:40 Order name: O2 Sat Monitoring; Complete Time: 00:58 cp EC:57 Rate is 110 beats/min. Rhythm is regular. PA interval is normal. QRS interval is cp normal. QT interval is normal. Interpreted by me. Reviewed by me. Administered Medications: 01:12 Drug: Aspirin PO Chewable Tablet 324 mg Route: PO; lg3 01:12 Drug: Ativan IVP 1 mg Route: IVP; Site: right forearm; lg3 05:40 Follow up: Response: No adverse reaction aa9 01:21 Drug: Ondansetron IVP 4 mg Route: IVP; Site: right forearm; lg3 03:09 Follow up: Response: No adverse reaction aa9 01:21 Drug: morphine IVP or IV 4 mg Route: IVP; Infused Over: 4 mins; Site: right forearm; lg3 05:40 Follow up: Response: No adverse reaction aa9 03:09 Drug: NS 0.9% IV 250 ml Route: IV; Rate: bolus; Site: right forearm; aa9 03:19 Drug: Promethazine IVP 25 mg Route: IVP; Site: right forearm; aa9 05:40 Follow up: Response: No adverse reaction aa9 03:20 Drug: Potassium Chloride IV 20 mEq Route: IV; Rate: calculated rate; Site: right aa9 forearm; 05:39 Follow up: Response: No adverse reaction; IV Status: Completed infusion; IV Intake: aa9 100ml 03:59 Drug: Potassium PO Effervescent Tablet 50 mEq Route: PO; aa9 05:39 Follow up: Response: No adverse reaction aa9 03:59 Drug: morphine IVP or IV 4 mg Route: IVP; Infused Over: 4 mins; Site: right forearm; aa9 05:39 Follow up: Response: No adverse reaction aa9 Disposition Summary: 11/13/22 05:22 Discharge Ordered Location: Home fabrice Problem: an ongoing problem fabrice Symptoms: have improved fabrice Condition: Stable fabrice Diagnosis - Chest pain, unspecified fabrice - Other seizures fabrice - Hypokalemia fabrice Followup: cp - With: Private Physician - When: 1 - 2 days - Reason: Recheck today's complaints Followup: fabrice - With: - When: 2 - 3 days - Reason: Recheck today's complaints, Re-evaluation by your physician Discharge Instructions: - Discharge Summary Sheet fabrice - Nonspecific Chest Pain, Adult fabrice - Potassium Content of Foods fabrice - Seizure, Adult fabrice - Nonspecific Chest Pain, Adult, [id number] fabrice - Seizure, Adult, [id number] fabrice - Aspirin and Your Heart fabrice - Hypokalemia fabrice - Substance Use Disorder and Mental Illness fabrice - Supporting Someone With Substance Use Disorder fabrice Forms: - Medication Reconciliation Form fabrice - Thank You Letter fabrice - Antibiotic Education fabrice - Prescription Opioid Use fabrice Prescriptions: - Pepcid 20 mg Oral Tablet - take 1 tablet by ORAL route every 12 hours for 10 days; 20 tablet; Refills: 0, fabrice Product Selection Permitted Signatures: Dispatcher [employer] Derrick Payton, Derrick Hanna MD, cha, Dina Schwab cp RN RN lg3 Irene Murrieta RN RN aa9
[2022-11-13 06:16] VITALS: TEMP 98.9
[2022-11-13 06:34] VITALS: BP 132/82; O2SAT 99
--- NOTE | 2022-11-13 16:52 | RAD REPORT ---
EXAM DESCRIPTION: AP portable chest x-ray CLINICAL HISTORY: Chest pain.. TECHNIQUE: AP portable chest x-ray upright on 11/13/2022, at 01: 15. COMPARISON: 03/04/2022. FINDINGS: Heart: Normal size and configuration. Mediastinal Structures: Normal and midline.. Lung Stern: No active disease. There is a calcified granuloma in the left apex. Pulmonary Vascularity: Normal. Pleural Space: No active disease. Bony Structures: Normal. IMPRESSION: 1. No acute cardiopulmonary disease. Electronically signed by: Franco Perez MD 11/13/2022 1:32 AM CDT Due to temporary technical issues with the PACS/Fluency reporting system, reports are being signed by the in house radiologists without review as a courtesy to insure prompt reporting. The interpreting radiologist is fully responsible for the content of the report.
--- NOTE | 2022-11-14 07:03 | EKG ---
Test Date: 2022-11-13 Test Time: 00:49:50 Head Of Advertising: NAM MEASUREMENT RESULTS: Intervals: Rate: 114 OK: 144 QRSD: 90 QT: 348 QTc: 479 [place]: P: 64 OK: 144 QRS: 126 T: 51 INTERPRETIVE STATEMENTS: Sinus tachycardia Septal infarct, age undetermined Abnormal ECG Compared to ECG 11/07/2022 13:15:48 Sinus rhythm no longer present Atrial abnormality no longer present Right-axis deviation no longer present Right ventricular hypertrophy no longer present Myocardial infarct finding still present Electronically Signed On 11-14-22 07:00:12 CDT by Migel Warren
--- NOTE | 2022-11-17 12:45 | EKG ---
Test Date: 2022-11-13 Test Time: 00:51:00 Content Developer: NAM MEASUREMENT RESULTS: Intervals: Rate: 110 TN: 150 QRSD: 90 QT: 336 QTc: 454 [place]: P: 66 TN: 150 QRS: 112 T: 58 INTERPRETIVE STATEMENTS: Sinus tachycardia Septal infarct, age undetermined Abnormal ECG Compared to ECG 11/13/2022 00:49:50 No significant changes Electronically Signed On 11-17-22 12:37:58 CDT by Migel Warren
== END 2022-11-13 06:01 | disposition home or self-care (01) ==
LOC: ER 00:36
DX: R07.9 Chest pain, unspecified (principal); G40.89 Other seizures; E87.6 Hypokalemia
CPT/HCPCS: 36415; 71045; 80048; 80076; 80307; 81001; 83735; 83880; 84484; 85025; 85610; 93005; J2405; J2550; J3480; J7050

== ENCOUNTER 2022-12-01 11:31 | Emergency (ER) | payer SELFPAY ==
--- OUTSIDE RECORDS SUMMARY | 2022-12-01 11:49 | XMS REPORT | Continuity of Care Document ---
:1970 Author Organization [facility] t Address [address] [facility] [place] [address] Care Team Providers Name Role Phone Aneta Silva Primary Care Physician [phone] RITCHIE WARREN Attending Clinician Unavailable Ritchie Warren MD Attending Clinician Shy Beckman RN Attending Clinician Halima Mendoza MD Attending Clinician [...] Attending Clinician Glory Esteves MD Attending Clinician [phone] Selina Martines MD Attending Clinician Vaccine, Gary Pedi Attending Clinician Unavailable Jose Frederick MD Attending Clinician JOSE FREDERICK Attending Clinician Unavailable NICHELLE ALLISON F Attending Clinician Unavailable Ibtroy STEEL ERECTOR APPRENTICE, Folusho F Attending Clinician Doctor Unassigned, [place] Attending Clinician Unavailable Miky Nava RN Attending Clinician Unavailable Fabrice Gordillo Attending Clinician Lydia Eaton Attending Clinician Unknown, Attending Attending Clinician Unavailable UNKNOWN, ATTENDING Attending Clinician Unavailable Anali Rascon Attending Clinician Yehuda Arcos MD Attending Clinician RITCHIE WARREN Admitting Clinician Unavailable JEN YEPEZ Admitting Clinician Unavailable LORENZA HER Admitting Clinician Unavailable Lorenza Her MD Admitting Clinician BRANDYN MCFARLANE Admitting Clinician Unavailable Brandyn Mcfarlane MD Admitting Clinician GLORY ESTEVES Admitting Clinician Unavailable NICHELLE ALLISON Admitting Clinician Unavailable Payers Payer Name Policy Type Policy Number Effective Date Expiration Date S [facility] [place] PENDING PENDING 2022 00:00:00 Problems Condition Condition Condition Status Onset Resolution Last Treating Co mments Source Name Details Category Date Date Treatment Clinician Date Seizure Seizure Disease [facility]: [address] Cardiomyop Cardiomyop Disease Active U nivers athy athy 08-01 ity of 00:00: [address] NSVT NSVT Disease Active Univers (nonsustai (nonsustai 1-13 it y of keisha keisha 00:00: [place] [...] 00:00: [place] involving involving 00 Medi kwame [place] coronary coronary artery of artery of [place] heart heart without without angina angina pectoris pectoris Snores Snores Disease Active Univers 1-12 ity of 00:00: [place] 00 Medical Branch Cigarette Cigarette Disease Active Uni vers smoker smoker 1-12 ity of 00:00: [place] 00 Medical Branch Primary Primary Disease Active Univers hypertensi hypertensi 1-12 it y of on on 00:00: [place] 00 Medical Branch Other Other Disease Active Univers hyperlipid hyperlipid 1-12 it y of emia emia 00:00: [place] 00 Medical Branch Coronary Coronary Disease Active Unive rs artery artery 1-12 ity of disease disease 00:00: [place] involving involving 00 Medi kwame [place] Branch coronary coronary artery of artery of [place] heart heart without without angina angina pectoris pectoris Chronic Chronic Disease Active 2021-07 Univers bilateral bilateral 0-17 ity of low back low back 00:00: [place] pain with pain with 00 Medi kwmae bilateral bilateral Bran ch sciatica sciatica Interverte [...] Branch spine spine Stroke-lik Stroke-lik Disease Active 2022-0 U nivers e symptoms e symptoms 9-25 [...] spinal 3-11 ity of stenosis stenosis 00:00: [place] 00 Medical Branch Right-side Right-side Disease Active U nivers d low back d low back 3-11 it y of pain with pain with 00:[place] sciatica, sciatica, 00 Medi kwame sciatica sciatica Branch laterality laterality unspecifie unspecifie d d Generalize Generalize Disease Active U nivers d anxiety d anxiety 3-11 ity of disorder disorder 00:00: [place] [facility] Agoraphobi Agoraphobi Disease Active U nivers a a 3-11 ity of 00:00: [place] [facility] Bipolar Bipolar Disease Active Univers disorder, disorder, 311 ity of in partial in [place] remission, remission, 00 Me dical most most Branch recent recent episode episode manic manic 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 3-11 it y of disorder disorder 00:00: [place] [facility] Breast Breast Disease Active Univers mass, left mass, left 3- it y of 00:00: [place] [facility] Anxiety Anxiety Disease Active Univers 3- ity of 00:00: [place] [facility] Lower back Lower back Disease Active U nivers pain pain 3- ity of 00:00: [place] [facility] High blood High blood Disease Active U nivers pressure pressure 3- ity of 00:00: [place] [facility] COPD COPD Disease Active Univers (chronic (chronic 3-01 ity of obstructiv obstructiv 00:00: [place] e e 00 Medical pulmonary pulmonary Bran ch disease) disease) Obesity Obesity Disease Active Univers 09-17 ity of 00:00: [place] 00 Medical Branch Allergies, Adverse Reactions, Alerts Allergy Allergy Status Severity Reaction(s) Onset Inactive Treating Comm ents Source Name Type Date Date Clinician LEVETIRA DRUG Active Other-Cmnt Univ ers CETAM INGREDI 11-17 ity of 00:00: [place] 00 Medical Branch Levetira Propensi Active Other - See Makes U nivers cetam ty to comments 11-17 seizures ity of adverse 00:00: worse [place] reaction 00 Medical s Branch Green Propensi Active [facility]14 [facility] adverse 00:00: Medical reaction 00 Center s Fluoxeti Propensi Active Rash [facility] ty to 1-14 [facility] adverse 00:00: Medical reaction 00 Center s GREEN Allergy Active [facility] 08-02 00:00: 00 FLUOXETI Allergy Active Med Rash [facility] 1[facility] 00:[facility]: Medical 00 Center Fluoxeti Propensi [...] DRUG Active Hives Univers NE HCL INGREDI 8 ity of 00:00: [place] 00 Medical Branch Fluoxeti Propensi Active Hives Univer s ne Hcl ty to 31 ity of adverse 00:00: [place] reaction 00 Medical s Branch Family History Family Member Diagnosis Comments Start Date Stop Date Source Natural mother Alcohol abuse [facility] Natural mother Cancer [facility] Natural mother Diabetes [facility] Natural mother Heart disease [facility] Natural mother Hyperlipidemia [facility] Natural mother Kidney disease [facility] Natural mother Stroke [facility] Paternal uncle Diabetes [facility] Social History Social Habit Start Date Stop Date Quantity Comments Source History SDOH Social Unive rsity of Connections [facility] ical Together Branch History SDOH Social Unive rsity of Connections [facility] Branch History SDOH Social Unive rsity of Connections [place] [facility] Membership Branch History SDOH Social Unive rsity of Connections [place] [facility] Meetings Branch History of tobacco Cigarette Smoker [facility] use [facility] History SDOH [facility] Alcohol Frequency Medical Center History SDOH [facility] Alcohol Std Drinks Medica Center History SDOH [facility] Alcohol Binge Medical [address] Exposure to 2022-11-07 2022-11-17 Not sure University of SARS-CoV-2 (event) 00:00:00 17:26:00 [facility] Cigarettes smoked 2022-08-02 2022-08-[address] [facility] current (pack per 00:00:00 00:00:00 Medical Center day) - Reported Tobacco use and 2022-08-02 2022-08-02 Smokeless tobacco [facility] exposure 00:[facility]00 00:00:00 non-user Medical Center Alcohol intake 2022-08-02 2022-08-02 [facility] alcohol Medical Center (finding) Alcohol Comment 2022-08-02 2022-08-[address] [facility] 00:00:00 00:00:00 of beer Medical Center History SDOH Social 2022-08-01 2022-08-01 5 Unive rsity of Connections Phone 00:00:00 00:00:00 [facility] edical Branch History SDOH Social 2022-08-01 2022-08-01 5 Unive rsity of Connections Living 00:00:00 00:00:00 [place] [facility] History SDGA 2022-08-01 2022-08-01 0 University o f Physical Activity 00:00:00 00:00:00 [facility] edical DPW Branch History SDOH 2022-08-01 2022-08-01 0 University o f Physical Activity 00:00:00 00:00:00 [facility] edical MPS Branch History SDOH 2022-08-01 2022-08-01 3 University o f Financial 00:00:00 00:00:00 [place] [facility] History SDOH Food 2022-08-01 2022-08-01 1 Univers ity of Worry 00:00:00 00:00:00 [place] [facility] History SDOH Food 2022-08-01 2022-08-01 1 Univers ity of Scarcity 00:00:00 00:00:00 [place] [facility] History SDOH 2022-08-01 2022-08-01 2 University o f Transport Med 00:00:00 00:00:00 [place] Medic al Branch History SDOH 2022-08-01 2022-08-01 2 [place] o f Transport Non-Med 00:00:00 00:00:00 [facility] edical Branch Cigarette 2022-07-31 2022-07-31 University of pack-years 00:00:00 00:00:00 [facility] Education 2022-07-31 2022-07-31 14 [facility] 00:00:00 00:00:00 [facility] Sex Ass[birth year] At [birth year] [facility] 00:00:00 00:00:00 [facility] Smoking Status Start Date Stop Date Source Smokes tobacco daily 2022-08-02 00:00:00 [facility] Medications Ordered Filled Start Stop Current Ordering Indication Dosage Frequency Signature Comments Components Source Medication Medication Date Date Medication? Clinician (SIG) Name Name acetaminoph 2022- No 1{tbl} 1 tablet, Univers en-codeine 11-18 Oral, ity of (TYLENOL 05:30: 05:30 ONCE, 1 [place] #3) 300-30 00 :00 dose, On Medic al mg tablet 1 11/18/22 Br anch tablet at 0030, MICHAEL methocarbam No 1000mg 1,000 mg, Univers oL 11-18 Oral, ity of (ROBAXIN) 05:30: 05:30 ONCE, 1 [place] tablet 00 :00 dose, On Medical 1,000 mg 11/18/22 Bran h at 0030, MICHAEL ondansetron 2022- No 4mg 4 mg, Slow Univers (ZOFRAN 11-18 IV Push, ity of (PF)) 04:45: 03:38 ONCE, 1 [place] injection 4 00 :00 dose, On Medi kwame mg [facility] 11/17/22 Branch at 2345, MICHAEL morpHINE (2022- No 4mg 4 mg, Slow Univers mg/mL) 11-18 IV Push, ity of injection 4 03:45: 03:38 ONCE, 1 [place] mg 00 :00 dose, On Medical [facility] 11/17/22 Branch at 2245, Routine methocarbam No 1000mg 1,000 mg, Univers oL 11-18 Intravenou ity of (ROBAXIN) 00:30: 23:47 s, ONCE, 1 [place] injection 00 :00 dose, On Medica l 1,000 mg Thu11/17/22 Bran h at 1930, MICHAEL methocarbam Yes [id number] 1000mg Take 2 Univers oL 500 mg 11-18 tablets by ity of tablet 00:00: mouth 4 [place] 00 (four) Medical times Branch daily as needed for Pain (scale 7-10). acetaminoph 2022- Yes 4647 1{tbl} Take 1 U nivers en-codeine 11-18 tablet by ity of 300-60 mg 00:00: 04:59 mouth [place] tablet 00 :00 every 6 Medical (six) Branch hours as needed for Pain for up to 7 days. Indication s: acute pain ketorolac 2022- No 15mg 15 mg, Unive rs (TORADOL) 11-18 Slow IV ity of injection 00:00: 23:08 Push, [place] 15 mg 00 :00 ONCE, 1 Medical dose, On Branch Thu11/17/22 at 1900, Routine morpHINE (4 2022- No 4mg 4 mg, Slow Univers mg/mL) 11-17 IV Push, ity of injection 4 23:45: 23:49 ONCE, 1 [place] mg 00 :00 dose, On Medical 11/17/22 Branch at 1845, Routine ondansetron 2022- No 4mg 4 mg, Slow Univers (ZOFRAN 11-17 IV Push, ity of (PF)) 23:15: 23:06 ONCE, 1 [place] injection 4 00 :00 dose, On Medi kwame mg 11/17/22 Branch at 1815, MICHAEL lisinopriL Yes 10mg 10 mg, Unive rs (PRINIVIL,Z -14 Oral, ity of ESTRIL) 15:00: DAILY, [place] tablet 10 00 First dose Medi kwame mg on Sat Branch 08/02/22 at 0900, Until Discontinu ed, Routine predniSONE 2022- No 40mg 40 mg, Univ ers (DELTASONE) 08-02 Oral, ity of tablet 40 15:00: 14:59 DAILY, 5 [place] as mg 00 :00 doses, Medical First dose Branch on 08/02/22 at 0900, Last dose on 08/06/22 at 0900, Routine morpHINE (2 Yes 2mg 2 mg, Slow Univers mg/mL) -14 IV Push, ity of injection 2 03:29: [...] Administer over 15 Minutes, 100 mL MULTIVITAMI Yes 1{tbl} Take 1 Tab Univers N ORAL 1-13 by mouth ity of 23:49: daily. [place] 34 Medical Branch omega-3 Yes 1g Take 1 g Univer s fatty 1-13 by mouth ity of acids-vitam 23:49: daily. [place] in E (FISH 34 Medical OIL) 1,000 Branch mg capsule loratadine 0 Yes Take by Univ ers (CLARITIN 1-13 mouth ity of LIQUI-GEL) 23:49: daily. [place] 10 mg 34 Medical capsule Branch ondansetron 2022-0 Yes 4mg Take 4 mg U nivers 4 mg tablet 1-13 by mouth ity of 23:49: every 8 [place] [address] (eight) Medical hours as Branch needed. pantoprazol 3-0 Yes 40mg Take 40 mg Univers e 40 mg EC 1-13 by mouth ity o f tablet 23:49: daily. [address] Branch MULTIVITAMI 0 Yes 1{tbl} Take 1 Tab Univers N ORAL 1-13 by mouth ity of 23:49: daily. [address] Branch omega-3 2022-0 Yes 1g Take 1 g Univer s fatty 1-13 by mouth ity of acids-vitam 23:49: daily. [place] in E (FISH 34 Medical OIL) 1,000 Branch mg capsule loratadine 2022-0 Yes Take by Univ ers (CLARITIN 1-13 mouth ity of LIQUI-GEL) 23:49: daily. [place] 10 mg 34 Medical capsule Branch ondansetron 2022-0 Yes 4mg Take 4 mg U nivers 4 mg tablet 1-13 by mouth ity of 23:49: every 8 [place] [address] (eight) Medical hours as Branch needed. pantoprazol 2022-0 Yes 40mg Take 40 mg Univers e 40 mg EC 1-13 by mouth ity o f tablet 23:49: daily. [address] Branch MULTIVITAMI 2022-0 Yes 1{tbl} Take 1 Tab Univers N ORAL 1-13 by mouth ity of 23:49: daily. [address] Branch omega-3 2022-0 Yes 1g Take 1 g Univer s fatty 1-13 by mouth ity of acids-vitam 23:49: daily. [place] in E (FISH 34 Medical OIL) 1,000 Branch mg capsule loratadine 2022-0 Yes Take by Univ ers (CLARITIN 1-13 mouth ity of LIQUI-GEL) 23:49: daily. [place] 10 mg 34 Medical capsule Branch ondansetron 2022-0 Yes 4mg Take 4 mg U nivers 4 mg tablet 1-13 by mouth ity of 23:49: every 8 [place] [address] (eight) Medical hours as Branch needed. pantoprazol 0 Yes 40mg Take 40 mg Univers e 40 mg EC 1-13 by mouth ity o f tablet 23:49: daily. [address] MULTIVITAMI 0 Yes 1{tbl} Take 1 Tab Univers N ORAL 1-13 by mouth ity of 23:49: daily. [address] omega-3 0 Yes 1g Take 1 g Univer s fatty 1-13 by mouth ity of acids-vitam 23:49: daily. [place] in E (FISH 34 Medical OIL) 1,000 Branch mg capsule loratadine Yes Take by Univ ers (CLARITIN 1- mouth ity of LIQUI-GEL) 23:49: daily. [place] 10 mg Medical capsule Branch ondansetron 0 Yes 4mg Take 4 mg U nivers 4 mg tablet 1-13 by mouth ity of 23:49: every 8 [place] [address] (eight) Medical hours as Branch needed. pantoprazol 0 Yes 40mg Take 40 mg Univers e 40 mg EC 1-13 by mouth ity o f tablet 23:49: daily. [address] benzonatate 0 Yes 100mg 100 mg, Un lois (TESSALON 1-13 Oral, Q8H, ity of PERLES) 20:00: First dose [place] capsule 100 00 on Fri Medica l mg 08/01/22 at Branch 1400, Until Discontinu ed, Routine ipratropium 2022-0 Yes 3mL 3 mL, Unive rs -albuteroL 1-13 Inhalation ity of (DUONEB) 18:00: , QID, [place] 0.5 mg-3 00 First dose Medic al mg(2.5 mg on Fri Branch base)/3 mL 08/01/22 at nebulizer 1200, solution 3 Until mL Discontinu ed, Routine ipratropium 2023-0 Yes 3mL 3 mL, Unive rs -albuteroL 1-13 Inhalation ity of (DUONEB) 17:07: , QIDPRN, [place] 0.5 mg-3 07 Starting Medical mg(2.5 mg on Fri Branch base)/3 mL 08/01/22 at nebulizer 1107, solution 3 Until mL Discontinu ed, MICHAEL, Wheezing, Shortness of Breath sulfur 2022-0 2022- No [id number] 5mL 5 mL, Unive rs hexafluorid 08-01 Intravenou i ty of e microsphr 17:00: 17:00 s, ONCE, 1 [place] (LUMASON) 00 :00 dose, On Medica l injection 5 Thu Branch mL 08/01/22 at 1100, Routine
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 Restricted medication : KYLEE DIEGO pantoprazol Yes 40mg 40 mg, Univ [...] First dose [place] mg 00 :35 on [facility] Medical 08/01/22 at Branch 0800, Until Discontinu ed, Routine carvediloL 2022- No 6.25mg 6.25 mg, Univers (COREG) 08-01 Oral, BID ity of tablet 6.25 14:00: 17:29 MEALS, [place] mg :13 First dose Medical on Thu Branch 08/01/22 at 0800, Until Discontinu ed, Routine levETIRAcet 2022- No 1000mg 1,000 mg, Univers am (KEPPRA) 08-01 IV ity of in NACL 06:45: 06:32 Piggyback, [place] as (ISO-OS) 00 :00 ONCE, 1 Medical 1,000 dose, On [place] mg/100 mL Fri RTU 08/01/22 at 0045, Administer over 15 Minutes, 100 mL LORazepam 2022-0 Yes 1mg 1 mg, Slow Un lois (ATIVAN) 1-13 IV Push, ity of injection 1 05:52: Q4HPRN, [place] mg 54 Starting Medical on [facility] Branch 07/31/22 at 2352, Until Discontinu ed, Routine, Seizures, Agitation, Anxiety, ETOH / Cocaine Withdrawl foLIC acid 2022-0 Yes 1mg 1 mg, Univer s (FOLATE) 1-13 Oral, ity of tablet 1 mg 05:45: DAILY, [place] 00 First dose Medical on [facility] 07/31/22 at 2345, Until Discontinu ed, Routine thiamine 2022-0 Yes 100mg 100 mg, Unive rs (VITAMIN 1-13 Oral, ity of B1) tablet 05:45: DAILY, [place] 100 mg 00 First dose Medical on [facility] 07/31/22 at 2345, Until Discontinu ed, Routine LORazepam 2022-0 2023- No .5mg 0.5 mg, Univ ers (ATIVAN) -13 01-13 Slow IV ity of injection 05:30: 05:29 Push, [place] 0.5 mg 00 :00 ONCE, 1 Medical dose, On Branch [facility] 07/31/22 at 2330, MICHAEL atorvastati 2022-0 Yes 40mg 40 mg, Univ ers n (LIPITOR) 1-13 Oral, QHS, it y of tablet 40 03:00: First dose [place] mg 00 on [facility] Medical 07/31/22 at Branch 2100, Until Discontinu ed, Routine diphenhydrA 2022-0 Yes 25mg 25 mg, Univ ers MINE 1-13 Oral, ity of (BENADRYL) 00:32: Q6HPRN, [place] tablet 25 02 Starting Medica l mg on [facility] Branch 07/31/22 at 1832, Until Discontinu ed, Routine, Itching enoxaparin 202-0 Yes 40mg 40 mg, Unive rs (LOVENOX) 1-12 Subcutaneo ity of injection 23:00: us, DAILY, [place] 40 mg 00 First dose Medical on [place] Branch 07/31/22 at 1700, Until Discontinu ed, [...] l tablet 1 on [facility] Branch tablet 07/31/22 at 1601, Until Discontinu ed, Routine, Pain (scale 7-10) HYDROcodone 2022-0 2022- No 1{tbl} 1 tablet, Univers -acetaminop 07-31 Oral, ity of hen (NORCO 22:01: 22:00 Q6HPRN, [place] as 5) 5-325 mg 34 :34 Starting Medi kwame tablet 1 on [facility] Branch tablet 07/31/22 at 1601, Until 08/02/22 at 1600, Routine, Pain (scale 4-6) acetaminoph Yes 650mg 650 mg, Un lois en 07-31 Oral, ity of (TYLENOL) 22:01: Q6HPRN, [place] tablet 650 33 Starting Medic al mg on [facility] Branch 07/31/22 at 1601, Until Discontinu ed, Routine, Pain (scale 1-3) ketorolac 2022-2022- No 15mg 15 mg, Unive rs (TORADOL) 07-31 Slow IV ity of injection 21:45: 20:50 Push, [place] 15 mg 00 :00 ONCE, 1 Medical dose, On Branch [place] 07/31/22 at 1545, Routine ondansetron 2022- No 4mg 4 mg, Slow Univers (ZOFRAN 07-31 IV Push, ity of (PF)) 21:00: 20:47 ONCE, 1 [place] injection 4 00 :00 dose, On Medi kwame mg [facility] Branch 07/31/22 at 1500, MICHAEL furosemide 2022-0 [...] MICHAEL ipratropium 2022- No 3mL 3 mL, [facility] ers -albuteroL 07-31 Inhalation it y of (DUONEB) 19:30: 18:48 , ONCE, 1 [place] as 0.5 mg-3 00 :00 dose, On Medical mg(2.5 mg [place] Branch base)/3 mL 07/31/22 at nebulizer 1330, MICHAEL solution 3 mL pantoprazol Yes 40mg Take 40 mg Univers e 40 mg EC 12 by mouth ity o f tablet 17:15: daily. [place] 40 Medical Branch MULTIVITAMI Yes 1{tbl} Take 1 Tab Univers N ORAL -12 by mouth ity of 15:50: daily. [place] 57 Medical Branch loratadine Yes Take by [facility] ers (CLARITIN -12 mouth ity of LIQUI-GEL) 15:50: daily. [place] 10 mg 57 Medical capsule Branch ondansetron Yes 4mg Take 4 mg U nivers 4 mg tablet -12 by mouth ity of 15:50: every 8 [place] 57 (eight) Medical hours as Branch needed. omega-3 Yes 1g Take 1 g Univer s fatty -12 by mouth ity of acids-vitam 15:21: daily. [place] in E (FISH 27 Medical OIL) 1,000 Branch mg capsule TAKE ONE No (1) 1-09 TABLET(S) 00:00: BY MOUTH 00 THREE TIMES A DAY NEEDED. Methylpredn 2021-07- No [id number] 4mg Take 1 Univers isolone 4 0-22 10-24 tablet ity of mg tablet 00:00: 04:59 through [place] 00 :00 enteral Medical tube in Branch the morning for 1 dose. Methylpredn 2021-07- No [id number] 4mg Take 1 Univers isolone 4 0-21 10-23 tablet ity of mg tablet 00:00: 04:59 through [place] 00 :00 enteral Medical tube every Branch 12 (twelve) hours for 2 doses. MULTIVITAMI 2021-07 Yes 1{tbl} Take 1 Tab Univers N ORAL 0-20 by mouth ity of 14:44: daily. [place] [address] Medical Branch omega-3 2021-07 Yes 1g Take 1 g Univer s fatty 0-20 by mouth ity of acids-vitam 14:44: daily. [place] [facility] in E (FISH 48 Medical OIL) 1,000 Branch mg capsule loratadine 2021-07 Yes Take by Univ ers (CLARITIN 0-20 mouth ity of LIQUI-GEL) 14:44: daily. [place] 10 mg 48 Medical capsule Branch ondansetron 2021-07 Yes 4mg Take 4 mg U nivers (ZOFRAN) 4 0-20 by mouth ity o f mg tablet 14:44: every 8 [place] 48 (eight) Medical hours as Branch needed. pantoprazol 2021-07 Yes 40mg Take 40 mg Univers e 0-20 by mouth ity of (PROTONIX) 14:44: daily. [place] 40 mg EC 48 Medical tablet Branch DULoxetine 2021-07 Yes 30mg 30 mg, Unive rs (CYMBALTA) 0-20 Oral, ity of capsule 30 14:00: DAILY, [place] mg 00 First dose Medical on [facility] 05/08/22 at 0900, Until Discontinu ed, Routine divalproex 2021-07 Yes 1000mg 1,000 mg, Univers (DEPAKOTE) 0-20 Oral, BID, ity of EC tablet 13:00: First dose [place] 1,000 mg 00 (after Medical last Branch modificati on) on [facility] 05/08/22 at 0800, Until Discontinu ed, Routine Methylpredn 2021-07- No 4mg 4 mg, Univ ers isolone 0-20 10-21 Oral, Q8H ity of (MEDROL) 08:50: 08:59 TAPER, 3 [place] tablet 4 mg 10 :00 doses, Medica l First dose Branch on [facility] 05/08/22 at 0400, Last dose on [facility] 05/08/22 at 2000, Routine acetaminoph 2021-07 Yes 1{tbl} 1 tablet, Univers en-codeine 0-20 Oral, ity of (TYLENOL 04:07: Q4HPRN, [place] #3) 300-30 01 Starting Medic al mg [...] Q6HPRN, Javier as 18 Starting Medical on [facility] Branch 05/07/22 at 1902, Until Discontinu ed, Routine, Anxiety cyclobenzap 2021-07 Yes [id number] 5mg Take 1 Univers rine 5 mg 0-20 tablet by ity o f tablet 00:00: mouth in [place] [address] the [facility] morning Branch and 1 tablet at noon and 1 tablet in the evening. cyclobenzap 2021-07 Yes [id number] 5mg Take 1 Univers rine 5 mg 0-20 tablet by ity o f tablet 00:00: mouth in [address] morning [place] and 1 tablet at noon and 1 tablet in the evening. cyclobenzap 2021-07 Yes [id number] 5mg Take 1 Univers rine 5 mg 0-20 tablet by ity o f tablet 00:00: mouth in [address] morning [place] and 1 tablet at noon and 1 tablet in the evening. cyclobenzap 2021-07 Yes [id number] 5mg Take 1 Univers rine 5 mg 0-20 tablet by ity o f tablet 00:00: mouth in [address] morning [place] and 1 tablet at noon and 1 tablet in the evening. cyclobenzap 2021-07 Yes [id number] 5mg Take 1 Univers rine 5 mg 0-20 tablet by ity o f tablet 00:00: mouth in [place] 00 the Medical morning Branch and 1 tablet at noon and 1 tablet in the evening. cyclobenzap 2021-07 Yes [id number] 5mg Take 1 Univers rine 5 mg 0-20 tablet by ity o f tablet 00:00: mouth in [place] 00 the Medical morning Branch and 1 tablet at noon and 1 tablet in the evening. DULoxetine 2021-07- No [id number] 60mg Take 2 Univers (CYMBALTA) 0-20 11-20 capsules ity of 30 mg 00:00: 05:59 by mouth [place] capsule 00 :00 in the Medical morning Branch for 30 days. divalproex 2021-07- No [id number] 750mg Take 3 Univers (DEPAKOTE) 0-20 11-20 tablets by it y of 250 mg EC 00:00: 05:59 mouth [place] tablet 00 :00 every 8 Medical (eight) Branch hours for 30 days. LORazepam 1 2021-07- No [id number] 1mg Take 1 Univers mg tablet 0-20 [...] Indication s: acute pain Methylpredn 2021-07- No [id number] 4mg Take 1 Univers isolone 4 0-20 10-22 tablet by ity of mg tablet 00:00: 04:59 mouth [place] 00 :00 every 8 Medical (eight) Branch hours for 3 doses. divalproex 2021-07- No 750mg 750 mg, Un lois (DEPAKOTE) 0-19 10-20 Oral, BID, it y of EC tablet 01:00: 09:40 First dose [place] 750 mg 00 :23 on [facility] 05/06/22 Branch at 2000, Until Discontinu ed, Routine levETIRAcet 2021-07 No 1500mg 1,500 mg, Univers am (KEPPRA) 05-06 Oral, BID, i ty of tablet 13:00: 18:38 [place] 1,500 mg 00 :22 (after Medical last Branch modificati on) on [facility] 05/06/22 at 0800, Until Discontinu ed, Routine levETIRAcet 2021-07 No 1000mg 1,000 mg, Univers am (KEPPRA) 05-06 IV ity of in NACL 05:00: 05:46 Piggyback, [place] (ISO-OS) 00 :00 ONCE, 1 Medical 1,000 dose, On Branch mg/100 mL RTU 05/06/22 at 0000, Administer over 15 Minutes, 100 mL methocarbam 2021-07 No 500mg 500 mg, U nivers oL 05-06 Oral, QID, ity of (ROBAXIN) 02:15: 23:21 [place] tablet 500 00 :42 on [facility] Medical mg 05/05/22 Branch at 2115, Until Discontinu ed, Routine LORazepam 2021-07 No 2mg 2 mg, Univer s (ATIVAN) 05-06 Oral, ity of tablet 2 mg 01:30: 01:03 ONCE, 1 [place] 00 :[place] dose, On Medical [facility] Branch 05/05/22 at 2030, Routine levETIRAcet 2021-07 No 1000mg 1,000 mg, Univers am (KEPPRA) 05-06 Oral, BID, i ty of tablet 01:00: 04:48 [place] 1,000 mg 00 :06 on [facility] 05/05/22 Branch at 2000, Until Discontinu ed, Routine enoxaparin 2021-07 Yes 40mg 40 mg, Unive rs (LOVENOX) 018 Subcutaneo ity of injection 00:15: us, Q24H, [place] 40 mg 00 First dose Medical on [facility] Branch 05/05/22 at 1915, Until Discontinu ed, Routine levETIRAcet 2021-07 No 1000mg 1,000 mg, Univers am (KEPPRA) 0-17 10- IV ity of in NACL 19:45: 20:05 Piggyback, [place] (ISO-OS) 00 :00 ONCE, 1 Medical 1,000 dose, On Branch mg/100 mL [facility] RTU 05/05/22 at 1445, Administer over 15 Minutes, 100 mL clonazePAM 2021-07 Yes .5mg 0.5 mg, Univ ers (KLONOPIN) 0-17 Oral, BID, ity of tablet 0.5 19:30: First dose [place] mg 00 on [facility] 05/05/22 Branch at 1430, Until Discontinu ed, Routine ibuprofen 2021-07 Yes 600mg 600 mg, Univ ers (IBU) 0-17 Oral, TID ity of tablet 600 19:30: MEALS, [place] mg 00 First dose Medical on [facility] 05/05/22 at 1430, Until Discontinu ed, Routine gabapentin 2021-07 Yes 300mg 300 mg, Uni vers (NEURONTIN) 0-17 Oral, TID, it y of capsule 300 19:30: First dose [place] mg 00 on [facility] 05/05/22 Branch at 1430, Until Discontinu ed, Routine cyclobenzap 2021-07 Yes 5mg 5 mg, Unive rs rine 0-17 Oral, TID, ity of (FLEXERIL) 19:30: First dose [place] tablet 5 mg 00 on [facility] Medica l 05/05/22 Branch at 1430, Until Discontinu ed, Routine acetaminoph 2021-07 Yes 1000mg 1,000 mg, Univers en 0-17 Oral, Q8H, ity of (TYLENOL) 19:30: First dose [place] tablet 00 on [facility] 1,000 mg 05/05/22 Branch at 1430, Until Discontinu ed, Routine pantoprazol 2021-07 Yes 40mg 40 mg, Univ ers e 0-17 Oral, ity of (PROTONIX) 14:00: DAILY, [place] EC tablet 00 First dose Medi kwame 40 mg on [facility] 05/05/22 at 0900, Until Discontinu ed, Routine docusate 2021-07 Yes 100mg 100 mg, Unive rs (COLACE) 0-17 Oral, ity of capsule 100 14:00: DAILY, [place] mg 00 First dose Medical on [facility] 05/05/22 at 0900, Until Discontinu ed, Routine HYDROcodone 2021-07- No 1{tbl} 1 tablet, Univers -acetaminop 0-17 10-17 Oral, ity of hen (NORCO) 10:32: 19:18 Q6HPRN, [place] 10-325 mg 02 :52 Starting Medica l tablet 1 on [facility] tablet 05/05/22 at 0532, Until Thu05/05/22 at 1418, Routine, Pain (scale 7-10) ondansetron 2021-07 Yes 4mg 4 mg, Slow Univers (ZOFRAN 0-17 IV Push, ity of (PF)) 06:49: Q6HPRN, [place] injection 4 57 Starting Medi kwame mg on [facility] Branch 05/05/22 at 0149, Until Discontinu ed, Routine, Nausea and Vomiting (N/V) HYDROcodone 2021-07- No 1{tbl} 1 tablet, Univers -acetaminop 0-05 05- Oral, ity of hen (NORCO 06:49: 10:32 Q6HPRN, [place] 5) 5-325 mg 41 :14 Starting Medi kwame tablet 1 on [facility] tablet 05/05/22 at 0149, Until Thu05/05/22 at 0532, Routine, Pain (scale 7-10) acetaminoph 2021-07 No 325mg 325 mg, U nivers en 0-05-05 Oral, ity of (TYLENOL) 06:49: 19:18 Q4HPRN, [place] tablet 325 39 :52 Starting Medic al mg on [facility] 05/05/22 at 0149, Until Thu05/05/22 at 1418, Routine, Pain (scale 4-6) ondansetron 2021-07 No 4mg 4 mg, Univ ers (ZOFRAN) 0-05-05 Oral, ity of tablet 4 mg 04:00: 03:26 ONCE, 1 [place] 00 :00 dose, On Medical [place] Branch 05/04/22 at 2300, Routine morpHINE (2 2021-07 No 2mg 2 mg, Slow Univers mg/mL) 0-17 IV Push, ity of injection 2 04:00: 03:26 ONCE, 1 [place] mg 00 :00 dose, On Medical [place] [facility] 05/04/22 at 2300, Routine aspirin 81 Yes [id number] 81mg Take 1 U nivers mg chewable 9-28 tablet by ity of tablet 00:00: mouth in [place] 00 the Medical morning. Branch aspirin 81 2021-0 Yes [id number] 81mg Take 1 U nivers mg chewable 9-28 tablet by ity of tablet 00:00: mouth in [place] 00 the Medical morning. Branch aspirin 81 0 Yes [id number] 81mg Take 1 U nivers mg chewable 9-28 tablet by ity of tablet 00:00: mouth in [place] 00 the Medical morning. Branch aspirin 81 0 Yes [id number] 81mg Take 1 U nivers mg chewable 9-28 tablet by ity of tablet 00:00: mouth in [place] 00 the Medical morning. Branch aspirin 81 0 Yes [id number] 81mg Take 1 U nivers mg chewable 9-28 tablet by ity of tablet 00:00: mouth in [place] 00 the Medical morning. Branch aspirin 81 0 Yes [id number] 81mg Take 1 U nivers mg chewable 9-28 tablet by ity of tablet 00:00: mouth in [place] 00 the Medical morning. Branch aspirin 81 0 Yes [id number] 81mg Take 1 U nivers mg chewable 9-28 tablet by ity of tablet 00:00: mouth in [place] 00 the Medical morning. Branch MULTIVITAMI Yes 1{tbl} Take 1 Tab Univers N ORAL 9-27 by mouth ity of 17:39: daily. [place] 14 Medical Branch omega-3 Yes 1g Take 1 g Univer s fatty 9-27 by mouth ity of acids-vitam 17:39: daily. [place] in E (FISH 14 Medical OIL) 1,000 Branch mg capsule loratadine Yes Take by Univ ers (CLARITIN 9- mouth ity of LIQUI-GEL) 17:39: daily. [place] 10 mg 14 Medical capsule Branch ondansetron Yes 4mg Take 4 mg U nivers (ZOFRAN) 4 9- by mouth ity o f mg tablet [...] Starting Medic al mg tablet 1 on [facility] tablet 04/15/22 at 0039, Until Thu04/15/22 at [...] (after Medical last Branch modificati on) on [facility] 04/14/22 at 2145, Until Discontinu ed, Routine ketorolac 2021- No 15mg 15 mg, Unive rs (TORADOL) 04-15 Slow IV ity of injection 02:13: 02:22 Push, [place] 15 mg 00 :00 ONCE, 1 Medical dose, On Branch [facility] 04/14/22 at 2115, Routine levETIRAcet Yes [id number] 1000mg Take 1 Univers am 1,000 mg 9-27 tablet by ity of tablet 00:00: mouth in [place] 00 the Medical morning Branch and 1 tablet in the evening. atorvastati Yes [id number] 40mg Take 1 Univers n 40 mg 9-27 tablet by ity of tablet 00:00: mouth at [place] [address] bedtime. Medical Branch atorvastati Yes [id number] 40mg Take 1 Univers n 40 mg 9-27 tablet by ity of tablet 00:00: mouth at [place] [address] bedtime. Medical Branch atorvastati Yes [id number] 40mg Take 1 Univers n 40 mg 9-27 tablet by ity of tablet 00:00: mouth at [place] [address] bedtime. Medical Branch atorvastati Yes [id number] 40mg Take 1 Univers n 40 mg 9-27 tablet by ity of tablet 00:00: mouth at [place] [address] bedtime. Medical Branch atorvastati Yes [id number] 40mg Take 1 Univers n 40 mg 9-27 tablet by ity of tablet 00:00: mouth at [place] [address] bedtime. Medical Branch atorvastati Yes [id number] 40mg Take 1 Univers n 40 mg 9-27 tablet by ity of tablet 00:00: mouth at [place] [address] bedtime. Medical Branch atorvastati Yes [id number] 40mg Take 1 Univers n 40 mg 9-27 tablet by ity of tablet 00:00: mouth at [place] [address] bedtime. Medical Branch levETIRAcet 2021- No [id number] 1000mg Take 1 Univers am 1,000 mg 9-27 10-20 tablet by it y of tablet 00:00: 00:00 mouth in [place] 00 :00 the Medical morning Branch and 1 tablet in the evening. lidocaine 5 2021- No [id number] 1{patch Apply 1 Univers % (700 9-27 10-05 } Patch to ity of mg/patch) 00:00: 04:59 area(s) in [place] patch 00 :00 the Medical morning Branch for 7 days. HYDROcodone 2021- No [id number] 1{tbl} Take 1 U nivers -acetaminop 9-27 10-03 tablet by it y of hen 5-325 00:00: 04:59 mouth [place] mg tablet 00 :00 every 6 Medical (six) Branch hours as needed for Pain (scale 7-10) for up to 5 days. Indication s: acute pain lidocaine 0 Yes 1{patch 1 Patch, U nivers (LIDODERM) 04-14 } Topical, ity o f 5 % (700 21:45: Administer [place] as mg/patch) 29 over 12 Medical patch 1 Hours, Branch Patch [id number], Starting on Thu04/14/22 at 1645, Until Discontinu [...] (scale 7-10), Pain (scale 4-6) sulfur 2021-0 2022- No [id number] 5mL 5 mL, Univ ers hexafluorid 04-14 Intravenou i ty of e microsphr 16:45: 16:45 s, ONCE, 1 [place] (LUMASON) 00 :00 dose, On Medica l injection 5 Thu Branch mL 04/14/22 at 1145, Routine
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 Restricted medication : [employer] clopidogreL Yes 75mg 75 mg, Univ ers (PLAVIX) 75 04-14 Oral, ity of mg tablet 14:00: DAILY, [place] 75 mg 00 First dose Medical on [facility] 04/14/22 at 0900, Until Discontinu ed, Routine pantoprazol Yes 40mg 40 mg, Univ ers e 04-14 Oral, ity of (PROTONIX) 14:00: DAILY, [place] EC tablet 00 First dose Medi kwame 40 mg on [facility] 04/14/22 at 0900, Until Discontinu ed, Routine atorvastati Yes 40mg 40 mg, Univ ers n (LIPITOR) 04-14 Oral, QHS, it y of tablet 40 02:00: First dose [place] mg 00 on [facility] 04/13/22 at Branch 2100, Until Discontinu ed, Routine LORazepam 2021- No 1mg 1 mg, Univer s (ATIVAN) 04-14 Oral, ity of tablet 1 mg 01:30: 01:45 ONCE, 1 [place] 00 :00 dose, On [facility] 04/13/22 at 2030, Routine methocarbam Yes 500mg 500 mg, Un lois oL 04-14 Oral, QID, ity of (ROBAXIN) 01:00: First dose [place] tablet 500 00 on [place] Medical mg 04/13/22 at Branch 2000, Until Discontinu ed, Routine heparin Yes 5000U 5,000 Univers (porcine) 04-14 Units, ity of injection 01:00: Subcutaneo [place] 5,000 Units 00 us, Q12H, Med ical First dose Branch on [place] 04/13/22 at 2000, Until Discontinu ed, Routine acetaminoph 2021- No 650mg 650 mg, U nivers en 04-14 Oral, ity of (TYLENOL) 00:23: 21:29 Q6HPRN, [place] tablet 650 25 :42 Starting Medic al mg on [facility] 04/13/22 at 1923, Until [facility] 04/14/22 at 1629, Routine, Pain (scale 1-3), Pain (scale 4-6), Temp > 38.5 C, Temp > 37.5 C lidocaine 2021-0 202- No 1{patch 1 Patch, Univers (LIDODERM) 04-14 } Topical, ity of 5 % (700 00:22: 13:51 Administer [place] mg/patch) 00 :00 over 12 Medical patch 1 Hours, Branch Patch ONCE, 1 dose, On [place] 04/13/22 at 1930, Routine FENTanyl PF 2021- No 50ug 50 mcg, Un lois (SUBLIMAZE 04-13 Slow IV ity o f (PF)) 20:30: 19:22 Push, [place] injection 00 :00 ONCE, 1 Medical 50 mcg dose, On Branch [place] 04/13/22 at 1530, Routine aspirin 2021- No 650mg 650 mg, Unive rs chewable 04-13 Oral, ity of tablet 650 20:15: 20:15 ONCE, 1 [place] mg 00 :00 dose, On Medical [facility] 04/13/22 at 1515, Routine clopidogreL 2021- No 300mg 300 mg, U nivers (PLAVIX) 04-13 Oral, ity of 300 mg 20:00: 19:15 ONCE, 1 [place] tablet 300 00 :00 dose, On Medic al mg [facility] 04/13/22 at 1500, Routine ondansetron 2021- No 4mg 4 mg, Slow Univers (ZOFRAN 04-13 IV Push, ity of (PF)) 19:30: 19:22 ONCE, 1 [place] injection 4 00 :00 dose, On Medi kwame mg [facility] 04/13/22 at 1430, MICHAEL iopamidol 2021- No [id number] 100mL 100 mL, Univers (ISOVUE 04-13 Intravenou ity o f 370-500 mL) 18:31: 18:32 s, ONCE, 1 [place] injection 00 :00 dose, On Medica l 100 mL [facility] 04/13/22 at 1345, Routine NaCl 0.9% Yes 5mL 5 mL, Slow Un lois (NS) 04-13 IV Push, ity of injection 5 18:14: PRN - SEE [place] mL 11 INSTRUCTIO Medical NS, Branch Starting on [place] 04/13/22 at 1314, Until Discontinu ed, 10 mL aspirin Yes 324mg 324 mg, Univer s chewable 5-08 Oral, ity of tablet 324 14:00: DAILY, [place] mg 00 First dose Medical on [place] Branch 5/8/22 at 0900, Until Discontinu ed, Routine metoclopram [...] mL Dose No Unknown 4-08 00:00: 00 Dose 2022-0 [...] hr 00:00: tablet, 00 extended release Dose 2021-1 No Unknown 2-30 00:00: 00 Wellbutrin 2021-1 No 1mg XL 150 mg 2-30 24 hr 00:00: tablet, 00 extended release Dose 2021-1 No Unknown 2-30 00:00: 00 ibuprofen 2020-07 No 1mg 800 mg 2-02 tablet 00:00: 00 ibuprofen 2020-07 No 1mg 800 mg 2-02 tablet 00:00: 00 levetiracet 2020-07 No 1mg am 500 mg 1-30 tablet 00:00: 00 Dose 2020-07 No Unknown -30 00:00: 00 levetiracet 2020-07 No 1mg am 500 mg -30 tablet 00:00: 00 Dose 2020-07 No Unknown 08-18 00:00: 00 levoFLOXaci 2020- No 500mg 500 [...] IV ity of succ 01:57: 02:11 Push, [place] (SOLU-MEDRO 00 :00 ONCE, 1 Medic al [...] IV ity of succ 01:57: 02:11 Push, [place] (SOLU-MEDRO 00 :00 ONCE, 1 Medic al L) dose, Sat Branch injection 03/16/21 at 125 mg 2100, STAT ipratropium No 3mL 3 mL, Univ ers -albuteroL 03-17 Inhalation it y of (DUONEB) 01:57: 02:15 , ONCE, 1 [place] 0.5 mg-3 00 :00 dose, Sat Medica l mg(2.5 mg 03/16/21 at Bran ch base)/3 mL 2100, MICHAEL nebulizer solution 3 mL levoFLOXaci No [id number] 500mg Take 1 Univers n 500 mg 03-17 tablet by ity o f tablet 00:00: 04:59 mouth [place] 00 :00 daily for Medical 6 days. Branch levoFLOXaci 2020- No [id number] 500mg Take 1 Univers n 500 mg 03-17 tablet by ity o f tablet 00:00: 04:59 mouth [place] 00 :00 daily for Medical 6 days. Branch levoFLOXaci 2020-2020- No [id number] 500mg Take 1 Univers n 500 mg 03-17 tablet by ity o f tablet 00:00: 04:59 mouth [place] 00 :00 daily for Medical 6 days. Branch levoFLOXaci No [id number] 500mg Take 1 Univers n 500 mg 03-17 tablet by ity o f tablet 00:00: 04:59 mouth [place] 00 :00 daily for Medical 6 days. Branch predniSONE 2020- No [id number] 30mg Take 3 Univers 10 mg 8-17 04-03 tablets by ity of tablet 00:00: 04:59 mouth [place] 00 :00 daily for Medical 4 days. Branch predniSONE 2020- No [id number] 30mg Take 3 Univers 10 mg 8-17 04-03 tablets by ity of tablet 00:00: 04:59 mouth [place] 00 :00 daily for Medical 4 days. Branch predniSONE 2020- No [id number] 30mg Take 3 Univers 10 mg 8-17 04- tablets by ity of tablet 00:00: 04:59 mouth [place] 00 :00 daily for Medical 4 days. Branch predniSONE 2020- No [id number] 30mg Take 3 Univers 10 mg 8-17 04- tablets by ity of tablet 00:00: 04:59 mouth [place] 00 :00 daily for Medical 4 days. Branch albuterol 2020- No [id number] 4{puff} 4 Puff, Univers (VENTOLIN) 03-15- Inhalation it y of inhaler 4 01:45: 00:44 , ONCE, 1 [place] Puff 00 :00 dose, [facility] Medical 03/14/21 at [facility] 2044, Routine dexamethaso 2020- No [id number] 10mg 10 mg, Univers ne 03-15- Intramuscu ity of (DECADRON) 01:45: 00:45 lar, ONCE, [place] injection 00 :00 1 dose, Medical 10 mg [facility] 03/14/21 at 2044, Routine albuterol Yes [id number] 2.5mg Inhale 3 Univers 2.5 mg /3 8-27 mL every 4 ity of mL (0.083 00:00: (four) [place] %) 00 hours as Medical nebulizer needed for Bran ch solution Wheezing or Shortness of Breath. albuterol Yes [id number] 2.5mg Inhale 3 Univers 2.5 mg /3 8-27 mL every 4 ity of mL (0.083 00:00: (four) [place] %) 00 hours as Medical nebulizer needed for Bran ch solution Wheezing or Shortness of Breath. albuterol 2020-0 Yes [id number] 2.5mg Inhale 3 Univers 2.5 mg /3 8-27 mL every 4 ity of mL (0.083 00:00: (four) [place] %) 00 hours as Medical nebulizer needed for Bran ch solution Wheezing or Shortness of Breath. albuterol 2020-0 Yes [id number] 2.5mg Inhale 3 Univers 2.5 mg /3 8-27 mL every 4 ity of mL (0.083 00:00: (four) [place] %) 00 hours as Medical nebulizer needed for Bran ch solution Wheezing or Shortness of Breath. albuterol 2020-0 Yes [id number] 2.5mg Inhale 3 Univers 2.5 mg /3 8-27 mL every 4 ity of mL (0.083 00:00: (four) [place] %) 00 hours as Medical nebulizer needed for Bran ch solution Wheezing or Shortness of Breath. albuterol 2020-0 Yes [id number] 2.5mg Inhale 3 Univers 2.5 mg /3 8-27 mL every 4 ity of mL (0.083 00:00: (four) [place] %) 00 hours as Medical nebulizer needed for Bran ch solution Wheezing or Shortness of Breath. albuterol 2020-0 Yes [id number] 2.5mg Inhale 3 Univers 2.5 mg /3 8-27 mL every 4 ity of mL (0.083 00:00: (four) [place] %) 00 hours as Medical nebulizer needed for Bran ch solution Wheezing or Shortness of Breath. albuterol 2020-0 Yes [id number] 2.5mg Inhale 3 Univers 2.5 mg /3 8-27 mL every 4 ity of mL (0.083 00:00: (four) [place] %) 00 hours as Medical nebulizer needed for Bran ch solution Wheezing or Shortness of Breath. albuterol 2020-0 Yes [id number] 2.5mg Inhale 3 Univers 2.5 mg /3 8-27 mL every 4 ity of mL (0.083 00:00: (four) [place] %) 00 hours as Medical nebulizer needed for Bran ch solution Wheezing or Shortness of Breath. albuterol 2020-0 Yes [id number] 2.5mg Inhale 3 Univers 2.5 mg /3 8-27 mL every 4 ity of mL (0.083 00:00: ([facility]) [place] %) 00 hours as Medical nebulizer needed for Bran ch solution Wheezing or Shortness of Breath. albuterol 2020-0 Yes [id number] 2.5mg Inhale 3 Univers 2.5 mg /3 8-27 mL every 4 ity of mL (0.083 00:00: ([facility]) [place] %) 00 hours as Medical nebulizer needed for Bran ch solution Wheezing or Shortness of Breath. albuterol 2020-0 Yes [id number] 2.5mg Inhale 3 Univers 2.5 mg /3 8-27 mL every 4 ity of mL (0.083 00:00: ([facility]) [place] %) 00 hours as Medical nebulizer needed for Bran ch solution Wheezing or Shortness of Breath. albuterol 2020-0 Yes [id number] 2.5mg Inhale 3 Univers 2.5 mg /3 8-27 mL every 4 ity of mL (0.083 00:00: ([facility]) [place] %) 00 hours as Medical nebulizer needed for Bran ch solution Wheezing or Shortness of Breath. albuterol 2020-0 Yes [id number] 2.5mg Inhale 3 Univers 2.5 mg /3 8-27 mL every 4 ity of mL (0.083 00:00: ([facility]) [place] %) 00 hours as Medical nebulizer needed for Bran ch solution Wheezing or Shortness of Breath. albuterol 2020-0 Yes [id number] 2.5mg Inhale 3 Univers 2.5 mg /3 8-27 mL every 4 ity of mL (0.083 00:00: (four) [place] %) 00 hours as Medical nebulizer needed for Bran ch solution Wheezing or Shortness of Breath. albuterol 2020-0 Yes [id number] 2.5mg Inhale 3 Univers 2.5 mg /3 8-27 mL every 4 ity of mL (0.083 00:00: (four) [place] %) 00 hours as Medical nebulizer needed for Bran ch solution Wheezing or Shortness of Breath. albuterol 2020-0 Yes [id number] 2.5mg Inhale 3 Univers 2.5 mg /3 [...] (KEPPRA 8-03 mouth. ity of ORAL) 19:45: [address] levetiracet Yes Take by Uni vers am (KEPPRA 8-03 mouth. ity of ORAL) 19:45: [address] levetiracet Yes Take by Uni vers am (KEPPRA 8-03 mouth. ity of ORAL) 19:45: [address] levetiracet Yes Take by Uni vers am (KEPPRA 8-03 mouth. ity of ORAL) 19:45: [address] levetiracet Yes Take by Uni vers am (KEPPRA 8-03 mouth. ity of ORAL) 19:45: [address] levetiracet Yes Take by Uni vers am (KEPPRA 8-03 mouth. ity of ORAL) 19:45: [address] LISINOPRIL- 2020- No Take by Un lois HYDROCHLORO 02-19 mouth. ity o f THIAZIDE 19:41: 00:00 [place] ORAL 15 :00 [facility] dicyclomine 2020- No 20mg 20 mg, Uni [...] Medica l NaCl 0.9% 02/19/21 at [facility] h (NS) 50 mL 1415, 50 [...] 1,000 mL 00 :00 IV Medical Infusion, [place] ONCE, 1 dose, 02/19/21 at 1215, STAT ondansetron 2020- No 4mg 4 mg, Slow Univers (ZOFRAN 02-19 IV Push, ity of (PF)) 17:00: 15:59 ONCE, 1 [place] injection 4 00 :00 dose, Tue Med ical mg 02/19/21 at Branch 1200, MICHAEL iopamidol 2020- No [id number] 100mL 100 mL, Univers (ISOVUE 02-19 Intravenou ity o f 370-500 mL) 16:35: 16:45 s, ONCE, 1 [place] injection 00 :00 dose, Tue Medic al 100 mL 02/19/21 at Branch 1145, Routine levetiracet Yes Take by Uni vers am (KEPPRA 8-03 mouth. ity of ORAL) 14:45: [address] levetiracet Yes Take by Uni vers am (KEPPRA 8-03 mouth. ity of ORAL) 14:45: [address] levetiracet Yes Take by Uni vers am (KEPPRA 8-03 mouth. ity of ORAL) 14:45: [address] levetiracet Yes Take by Uni vers am (KEPPRA 8-03 mouth. ity of ORAL) 14:45: [place] [address] Medical Branch levetiracet 2020-0 Yes Take by Uni vers am (KEPPRA 8-03 mouth. ity of ORAL) 14:45: [place] [address] Medical Branch proMETHazin 2020-0 Yes [id number] 25mg Take 1 Univers e 25 mg 8-03 tablet by ity of tablet 00:00: mouth [place] 00 every 6 Medical (six) Branch hours as needed for Nausea and Vomiting (N/V). dicyclomine 2020-0 Yes [id number] 20mg Take 1 Univers 20 mg 8-03 tablet by ity of tablet 00:00: mouth [place] (four) Medical times Branch daily as needed for Abdominal pain. proMETHazin 2020-0 Yes [id number] 25mg Take 1 Univers e 25 mg 8-03 tablet by ity of tablet 00:00: mouth [place] 00 every 6 Medical (six) Branch hours as needed for Nausea and Vomiting (N/V). dicyclomine 2020-0 Yes [id number] 20mg Take 1 Univers 20 mg 8-03 tablet by ity of tablet 00:00: mouth [place] (four) Medical times Branch daily as needed for Abdominal pain. proMETHazin 2020-0 Yes [id number] 25mg Take 1 Univers e 25 mg 8-03 tablet by ity of tablet 00:00: mouth [place] 00 every 6 Medical (six) Branch hours as needed for Nausea and Vomiting (N/V). dicyclomine 2020-0 Yes [id number] 20mg Take 1 Univers 20 mg 8-03 tablet by ity of tablet 00:00: mouth [place] (four) Medical times Branch daily as needed for Abdominal pain. proMETHazin 2020-0 Yes [id number] 25mg Take 1 Univers e 25 mg 8-03 tablet by ity of tablet 00:00: mouth [place] 00 every 6 Medical (six) Branch hours as needed for Nausea and Vomiting (N/V). dicyclomine 202-0 Yes [id number] 20mg Take 1 Univers 20 mg 8-03 tablet by ity of tablet 00:00: mouth 4 [place] (four) Medical times Branch daily as needed for Abdominal pain. proMETHazin 2020-0 Yes [id number] 25mg Take 1 Univers e 25 mg 8-03 tablet by ity of tablet 00:00: mouth [place] 00 every 6 Medical (six) Branch hours as needed for Nausea and Vomiting (N/V). dicyclomine 2021-0 Yes [id number] 20mg Take 1 Univers 20 mg 8-03 tablet by ity of tablet 00:00: mouth 4 00 (four) Medical times Branch daily as needed for Abdominal pain. proMETHazin 2021-0 Yes [id number] 25mg Take 1 Univers e 25 mg 8-03 tablet by ity of tablet 00:00: mouth [place] 00 every 6 Medical (six) Branch hours as needed for Nausea and Vomiting (N/V). dicyclomine 2021-0 Yes [id number] 20mg Take 1 Univers 20 mg 8-03 tablet by ity of tablet 00:00: mouth (four) Medical times Branch daily as needed for Abdominal pain. proMETHazin 2021-0 Yes [id number] 25mg Take 1 Univers e 25 mg 8-03 tablet by ity of tablet 00:00: mouth [place] 00 every 6 Medical (six) Branch hours as needed for Nausea and Vomiting (N/V). dicyclomine 1-0 Yes [id number] 20mg Take 1 Univers 20 mg 8-03 tablet by ity of tablet 00:00: mouth (four) Medical times Branch daily as needed for Abdominal pain. proMETHazin 1-0 Yes [id number] 25mg Take 1 Univers e 25 mg 8-03 tablet by ity of tablet 00:00: mouth [place] 00 every 6 Medical (six) Branch hours as needed for Nausea and Vomiting (N/V). dicyclomine 2021-0 Yes [id number] 20mg Take 1 Univers 20 mg 8-03 tablet by ity of tablet 00:00: mouth (four) Medical times Branch daily as needed for Abdominal pain. proMETHazin 2021-0 Yes [id number] 25mg Take 1 Univers e 25 mg 8-03 tablet by ity of tablet 00:00: mouth [place] 00 every 6 Medical (six) Branch hours as needed for Nausea and Vomiting (N/V). dicyclomine 2021-0 Yes [id number] 20mg Take 1 Univers 20 mg 8-03 tablet by ity of tablet 00:00: mouth 4 (four) Medical times Branch daily as needed for Abdominal pain. proMETHazin 1-0 Yes [id number] 25mg Take 1 Univers e 25 mg 8-03 tablet by ity of tablet 00:00: mouth [place] 00 every 6 Medical (six) Branch hours as needed for Nausea and Vomiting (N/V). dicyclomine 2020-0 Yes [id number] 20mg Take 1 Univers 20 mg 8-03 tablet by ity of tablet 00:00: mouth 4 00 (four) Medical times Branch daily as needed for Abdominal pain. proMETHazin 2020-0 Yes [id number] 25mg Take 1 Univers e 25 mg 8-03 tablet by ity of tablet 00:00: mouth [place] 00 every 6 Medical (six) Branch hours as needed for Nausea and Vomiting (N/V). dicyclomine 2020-0 Yes [id number] 20mg Take 1 Univers 20 mg 8-03 tablet by ity of tablet 00:00: mouth 4 (four) Medical times Branch daily as needed for Abdominal pain. proMETHazin 2020-0 Yes [id number] 25mg Take 1 Univers e 25 mg 8-03 tablet by ity of tablet 00:00: mouth [place] 00 every 6 Medical (six) Branch hours as needed for Nausea and Vomiting (N/V). dicyclomine 2020-0 Yes [id number] 20mg Take 1 Univers 20 mg 8-03 tablet by ity of tablet 00:00: mouth (four) Medical times Branch daily as needed for Abdominal pain. proMETHazin 2020-0 Yes [id number] 25mg Take 1 Univers e 25 mg 8-03 tablet by ity of tablet 00:00: mouth [place] 00 every 6 Medical (six) Branch hours as needed for Nausea and Vomiting (N/V). dicyclomine 2020-0 Yes [id number] 20mg Take 1 Univers 20 mg 8-03 tablet by ity of tablet 00:00: mouth 4 00 (four) Medical times Branch daily as needed for Abdominal pain. proMETHazin 2020-0 Yes [id number] 25mg Take 1 Univers e 25 mg 8-03 tablet by ity of tablet 00:00: mouth [place] 00 every 6 Medical (six) Branch hours as needed for Nausea and Vomiting (N/V). dicyclomine 202-0 Yes [id number] 20mg Take 1 Univers 20 mg 8-03 tablet by ity of tablet 00:00: mouth 4 (four) Medical times Branch daily as needed for Abdominal pain. proMETHazin 0 Yes [id number] 25mg Take 1 Univers e 25 mg 8-03 tablet by ity of tablet 00:00: mouth [place] 00 every 6 Medical (six) Branch hours as needed for Nausea and Vomiting (N/V). dicyclomine Yes [id number] 20mg Take 1 Univers 20 mg 8-03 tablet by ity of tablet 00:00: mouth 4 00 (four) Medical times Branch daily as needed for Abdominal pain. proMETHazin Yes [id number] 25mg Take 1 Univers e 25 mg 8-03 tablet by ity of tablet 00:00: mouth [place] 00 every 6 Medical (six) Branch hours as needed for Nausea and Vomiting (N/V). dicyclomine Yes [id number] 20mg Take 1 [facility] 20 mg 8-03 tablet by ity of tablet 00:00: mouth (four) Medical times Branch daily as needed for Abdominal pain. proMETHazin Yes [id number] 25mg Take 1 Univers e 25 mg 8-03 tablet by ity of tablet 00:00: mouth [place] 00 every 6 Medical (six) Branch hours as needed for Nausea and Vomiting (N/V). dicyclomine Yes [id number] 20mg Take 1 [facility] 20 mg 8-03 tablet by ity of tablet 00:00: mouth (four) Medical times Branch daily as needed for Abdominal pain. proMETHazin Yes [id number] 25mg Take 1 Univers e 25 mg 8-03 tablet by ity of tablet 00:00: mouth [place] 00 every 6 Medical (six) Branch hours as needed for Nausea and Vomiting (N/V). dicyclomine Yes [id number] 20mg Take 1 Univers 20 mg 8-03 tablet by ity of tablet 00:00: mouth (four) Medical times Branch daily as needed for Abdominal pain. ZONISAMIDE Yes TAKE 1 Unive rs 100 mg 4-29 CAPSULE BY ity of capsule 00:00: MOUTH [place] 00 TWICE A Medical DAY Branch ZONISAMIDE 2019-0 2021- No TAKE 1 Univ ers 100 mg 11-15 CAPSULE BY ity of capsule 00:00: 00:00 MOUTH [place] 00 :00 TWICE A Medical DAY Branch ondansetron 2018-0 Yes 4mg Take 4 mg U nivers (ZOFRAN) 4 7-24 by mouth ity o f mg tablet 20:05: every 8 [place] [address] (eight) Medical hours as Branch needed. pantoprazol 2018-0 Yes 40mg Take 40 mg Univers e 7-24 by mouth ity of (PROTONIX) 20:05: daily. [place] 40 mg EC Medical tablet Branch ondansetron 2017-0 Yes 4mg Take 4 mg U nivers (ZOFRAN) 4 7-24 by mouth ity o f mg tablet 20:05: every 8 [place] [address] (eight) Medical hours as Branch needed. pantoprazol 2017-0 Yes 40mg Take 40 mg Univers e 7-24 by mouth ity of (PROTONIX) 20:05: daily. [place] 40 mg EC Medical tablet Branch LISINOPRIL- 2017-0 Yes Take by Uni vers HYDROCHLORO 7-24 mouth. ity of THIAZIDE 20:05: [place] ORAL Medical Branch ondansetron 2017-0 Yes 4mg Take 4 mg U nivers (ZOFRAN) 4 7-24 by mouth ity o f mg tablet 20:05: every 8 [place] [address] (eight) Medical hours as Branch needed. pantoprazol 2017-0 Yes 40mg Take 40 mg Univers e 7-24 by mouth ity of (PROTONIX) 20:05: daily. [place] 40 mg EC Medical tablet Branch ondansetron 2018-0 Yes 4mg Take 4 mg U nivers (ZOFRAN) 4 7-24 by mouth ity o f mg tablet 20:05: every 8 [place] [address] (eight) Medical hours as Branch needed. pantoprazol 2018-0 Yes 40mg Take 40 mg Univers e 7-24 by mouth ity of (PROTONIX) 20:05: daily. [place] 40 mg EC Medical tablet Branch ondansetron 2018-0 Yes 4mg Take 4 mg U nivers (ZOFRAN) 4 7-24 by mouth ity o f mg tablet 20:05: every 8 [place] [address] (eight) Medical hours as Branch needed. pantoprazol 2018-0 Yes 40mg Take 40 mg Univers e 7-24 by mouth ity of (PROTONIX) 20:05: daily. [place] 40 mg EC 01 Medical tablet Branch ondansetron Yes 4mg [...] 10 mg 14 Medical capsule Branch MULTIVITAMI 2017-0 Yes 1{tbl} Take 1 Tab Univers N ORAL 7-24 by mouth ity of 19:58: daily. [place] [address] Medical Branch loratadine Yes Take by Univ ers (CLARITIN 7-24 mouth ity of LIQUI-GEL) 19:58: daily. [place] 10 mg 14 Medical capsule Branch MULTIVITAMI Yes 1{tbl} Take 1 Tab Univers N ORAL 7-24 by mouth ity of 19:58: daily. [place] [address] Medical Branch loratadine Yes Take by Univ ers (CLARITIN 7-24 mouth ity of LIQUI-GEL) 19:58: daily. [place] 10 mg 14 Medical capsule Branch MULTIVITAMI Yes 1{tbl} Take 1 Tab Univers N ORAL 7-24 by mouth ity of 19:58: daily. [place] [address] Medical Branch loratadine Yes Take by Univ ers (CLARITIN 7-24 mouth ity of LIQUI-GEL) 19:58: daily. [place] 10 mg 14 Medical capsule Branch MULTIVITAMI Yes 1{tbl} Take 1 Tab Univers N ORAL 7-24 by mouth ity of 19:58: daily. [place] [address] Medical Branch loratadine Yes Take by Univ ers (CLARITIN 7-24 mouth ity of LIQUI-GEL) 19:58: daily. [place] 10 mg 14 Medical capsule Branch MULTIVITAMI Yes 1{tbl} Take 1 Tab Univers N ORAL 7-24 by mouth ity of 19:58: daily. [place] [address] Medical Branch loratadine Yes Take by Univ ers (CLARITIN 7-24 mouth ity of LIQUI-GEL) 19:58: daily. [place] 10 mg 14 Medical capsule Branch MULTIVITAMI Yes 1{tbl} Take 1 Tab Univers N ORAL 7-24 by mouth ity of 19:58: daily. [place] [address] Medical Branch loratadine Yes Take by Univ ers (CLARITIN 7-24 mouth ity of LIQUI-GEL) 19:58: daily. [place] 10 mg 14 Medical capsule Branch ondansetron Yes 4mg Take 4 mg U nivers (ZOFRAN) 4 7-24 by mouth ity o f mg tablet 15:05: every 8 [place] 01 (eight) Medical hours as Branch needed. [...] 14:58: daily. [place] 14 Medical Branch loratadine 2017-0 Yes Take by Univ ers (CLARITIN 7-24 mouth ity of LIQUI-GEL) 14:58: daily. [place] 10 mg 14 Medical capsule Branch MULTIVITAMI 2017-0 Yes 1{tbl} Take 1 Tab Univers N ORAL 7-24 by mouth ity of 14:58: daily. [place] 14 Medical Branch loratadine 2017-0 Yes Take by Univ ers (CLARITIN 7-24 mouth ity of LIQUI-GEL) 14:58: daily. [place] 10 mg 14 Medical capsule Branch MULTIVITAMI Yes 1{tbl} Take 1 Tab Univers N ORAL 7-24 by mouth ity of 14:58: daily. [place] [address] Medical Branch loratadine Yes Take by [facility] ers (CLARITIN 7-24 mouth ity of LIQUI-GEL) 14:58: daily. [place] 10 mg 14 Medical capsule Branch MULTIVITAMI Yes 1{tbl} Take 1 Tab Univers N ORAL 7-24 by mouth ity of 14:58: daily. [place] [address] Medical Branch loratadine Yes Take by [facility] ers (CLARITIN 7-24 mouth ity of LIQUI-GEL) 14:58: daily. [place] 10 mg 14 Medical capsule Branch MULTIVITAMI Yes 1{tbl} Take 1 Tab Univers N ORAL 7-24 by mouth ity of 14:58: daily. [place] [address] Medical Branch loratadine Yes Take by [facility]. [...] Immunizations Ordered Filled Immunization Date Status Comments [facility] e Immunization Name Name SARS-COV-2 COVID-19 2022-02-19 Completed [facility] BA-SUCROSE 00:00:00 [place] Medical VACCINE (ROSE TOP) [...] Unive rsity of PFIZER VACCINE 00:00:00 [place] [facility]ame Branch SARS-COV-2 COVID-19 2021-05-24 Completed Unive rsity of PFIZER VACCINE 00:00:00 [place] [facility]ame Branch SARS-COV-2 COVID-19 2021-05-24 Completed Unive rsity of PFIZER VACCINE 00:00:00 [place] [facility] Branch SARS-COV-2 COVID-19 2021-05-24 Completed Unive rsity of PFIZER VACCINE 00:00:00 [place] [facility] kwame Branch SARS-COV-2 COVID-19 2021-05-24 Completed Unive rsity of PFIZER VACCINE 00:00:00 [place] [facility]ame Branch SARS-COV-2 COVID-19 2021-05-24 Completed Unive rsity of PFIZER VACCINE 00:00:00 [place] [facility]ame Branch SARS-COV-2 COVID-19 2021-05-24 Completed Unive rsity of PFIZER VACCINE 00:00:00 [place] [facility] kwame Branch SARS-COV-2 COVID-19 2021-05-24 Completed Unive rsity of PFIZER VACCINE 00:00:00 [facility] SARS-COV-2 COVID-19 2021-05-24 Completed Unive rsity of PFIZER VACCINE 00:00:00 [facility] SARS-COV-2 COVID-19 2021-05-24 Completed Unive rsity of PFIZER VACCINE 00:00:00 [facility] SARS-COV-2 COVID-19 2021-05-03 Completed Unive rsity of PFIZER VACCINE 00:00:00 [facility] SARS-COV-2 COVID-19 2021-05-03 Completed Unive rsity of PFIZER VACCINE 00:00:00 [facility] SARS-COV-2 COVID-19 2021-05-03 Completed Unive rsity of PFIZER VACCINE 00:00:00 [facility] SARS-COV-2 COVID-19 2021-05-03 Completed Unive rsity of PFIZER VACCINE 00:00:00 [facility] SARS-COV-2 COVID-19 2021-05-03 Completed Unive rsity of PFIZER VACCINE 00:00:00 [facility] SARS-COV-2 COVID-19 2021-05-03 Completed Unive rsity of PFIZER VACCINE 00:00:00 [facility] SARS-COV-2 COVID-19 2021-05-03 Completed Unive rsity of PFIZER VACCINE 00:00:00 [facility] SARS-COV-2 COVID-19 2021-05-03 Completed Unive rsity of PFIZER VACCINE 00:00:00 [facility] SARS-COV-2 COVID-19 2021-05-03 Completed Unive rsity of PFIZER VACCINE 00:00:00 [facility] SARS-COV-2 COVID-19 2021-05-03 Completed Unive rsity of PFIZER VACCINE 00:00:00 [facility] SARS-COV-2 COVID-19 2021-05-03 Completed Unive rsity of PFIZER VACCINE 00:00:00 [facility] Vital Signs Vital Name Observation Time Observation Value Comments Source Systolic blood 2022-11-18 05:34:00 152 mm[Hg] Univer sity of pressure [facility] Diastolic blood 2022-11-18 05:34:00 98 mm[Hg] Unive rsity of pressure [place] [facility] Heart rate 2022-11-18 05:34:00 88 /min [facility] [place] [facility] Respiratory rate 2022-11-18 05:34:00 18 /min Univ ersity of [place] [facility] Oxygen saturation in 2022-11-18 05:34:00 97 /min University of Arterial blood by [facility] [place] Pulse oximetry Branch Body temperature 2022-11-17 22:28:00 37.06 Radha Univ ersity of [place] [facility] Body height 2022-11-17 22:28:00 160 cm [facility] [place] [facility] Body weight 2022-11-17 22:28:00 99.791 kg [facility] [place] [facility] BMI 2022-11-17 22:28:00 38.97 kg/m2 [facility] [place] [facility] Heart rate 2022-08-02 02:02:00 108 /min [facility] [place] [facility] Respiratory rate 2022-08-02 02:02:00 28 /min Univ ersity of [place] [facility] Oxygen saturation in 2022-08-02 02:02:00 97 /min University of Arterial blood by [facility] [place] Pulse oximetry Branch Body temperature 2022-08-02 01:00:00 36.44 Radha Univ ersity of [place] [facility] Systolic blood 2022-08-01 23:29:00 145 mm[Hg] Univer sity of pressure [place] [facility] Diastolic blood 2022-08-01 23:29:00 103 mm[Hg] Unive rsity of pressure [place] [facility] Body weight 2022-08-01 09:16:00 97.977 kg [facility] [place] [facility] BMI 2022-08-01 09:16:00 38.26 kg/m2 [facility] [place] [facility] Body height 2022-07-31 21:54:00 160 cm [facility] [place] [facility] Systolic blood 2022-05-08 16:40:00 146 mm[Hg] Univer sity of pressure [place] [facility] Diastolic blood 2022-05-08 16:40:00 96 mm[Hg] Unive rsity of pressure [place] [facility] Heart rate 2022-05-08 16:40:00 112 /min [facility] [place] [facility] Body temperature 2022-05-08 16:40:00 36.78 Radha Univ ersity of [place] [facility] Respiratory rate 2022-05-08 16:40:00 18 /min Univ ersity of [place] [facility] Oxygen saturation in 2022-05-08 16:40:00 94 /min University of Arterial blood by [place] [employer] kwame Pulse oximetry Branch Body height 2022-05-05 23:44:00 160 cm [facility] [place] [facility] Body weight 2022-05-05 23:37:00 81.647 kg [facility] [place] [facility] BMI 2022-05-05 23:37:00 31.89 kg/m2 [facility] [place] [facility] Systolic blood 2022-04-15 18:52:00 104 mm[Hg] Univer sity of pressure [place] [facility] Diastolic blood 2022-04-15 18:52:00 82 mm[Hg] Unive rsity of pressure [place] [facility] Heart rate 2022-04-15 18:52:00 114 /min [facility] [place] [facility] Oxygen saturation in 2022-04-15 18:52:00 98 /min University of Arterial blood by [facility] [place] Pulse oximetry Branch Body temperature 2022-04-15 16:14:00 36.28 Radha Univ ersity of [place] [facility] Respiratory rate 2022-04-15 16:14:00 17 /min Univ ersity of [place] [facility] Body height 2022-04-13 21:08:00 160 cm [facility] [place] [facility] Body weight 2022-04-13 21:08:00 91.173 kg [facility] [place] [facility] BMI 2022-04-13 21:08:00 35.61 kg/m2 [facility] [place] [facility] Systolic blood 2021-11-23 21:30:00 132 mm[Hg] Univer sity of pressure [place] [facility] Diastolic blood 2021-11-23 21:30:00 76 mm[Hg] Unive rsity of pressure [place] [facility] Heart rate 2021-11-23 21:30:00 95 /min [facility] [place] [facility] Respiratory rate 2021-11-23 21:30:00 13 /min Univ ersity of [place] [facility] Oxygen saturation in 2021-11-23 21:30:00 97 /min University of Arterial blood by [facility] kwame Pulse oximetry Branch Body temperature 2021-11-23 20:15:00 37.56 Radha Univ ersity of [place] [facility] Systolic blood 2021-03-17 03:00:00 117 mm[Hg] Univer sity of pressure [place] [facility] Diastolic blood 2021-03-17 03:00:00 76 mm[Hg] Unive rsity of pressure [place] [facility] Heart rate 2021-03-17 03:00:00 104 /min [facility] [place] [facility] Respiratory rate 2021-03-17 03:00:00 28 /min Univ ersity of [place] [facility] Oxygen saturation in 2021-03-17 03:00:00 96 /min University of Arterial blood by [place] [employer] kwame Pulse oximetry Branch Body temperature 2021-03-17 00:39:00 37.11 Radha Univ ersity of [place] [facility] Body height 2021-03-17 00:39:00 160 cm [facility] [place] [facility] Body weight 2021-03-17 00:39:00 58.968 kg [facility] [place] [facility] BMI 2021-03-17 00:39:00 23.03 kg/m2 [facility] [place] [facility] Systolic blood 2021-03-15 00:14:00 149 mm[Hg] Univer sity of pressure [place] [facility] Diastolic blood 2021-03-15 00:14:00 78 mm[Hg] Unive rsity of pressure [place] [facility] Heart rate 2021-03-15 00:14:00 100 /min [facility] [place] [facility] Body temperature 2021-03-15 00:14:00 37.33 Radha Univ ersity of [place] [facility] Respiratory rate 2021-03-15 00:14:00 24 /min Univ ersity [facility] [place] [facility] Body height 2021-03-15 00:14:00 160 cm [facility] [place] [facility] Body weight 2021-03-15 00:14:00 58.968 kg [facility] [place] [facility] BMI 2021-03-15 00:14:00 23.03 kg/m2 [facility] [place] [facility] Oxygen saturation in 2021-03-15 00:14:00 98 /min University of Arterial blood by [place] [employer] kwame Pulse oximetry Branch Systolic blood 2021-02-19 18:00:00 131 mm[Hg] Univer sity of pressure [place] [facility] Diastolic blood 2021-02-19 18:00:00 80 mm[Hg] Unive rsity of pressure [place] [facility] Heart rate 2021-02-19 18:00:00 83 /min [facility] Respiratory rate 2021-02-19 18:00:00 18 /min [facility] Oxygen saturation in 2021-02-19 18:00:00 100 /min University Arterial blood by [facility] [place] Pulse oximetry Branch Body temperature 2021-02-19 15:47:[address] [facility] height 2021-02-19 15:47:00 160 cm [facility] Body weight 2021-02-19 15:47:00 58.968 kg [facility] BMI 2021-02-19 15:47:00 23.03 kg/m2 [facility] Respiratory rate 2022-08-03 14:40:00 18 /min [facility] Systolic blood 2022-08-03 12:13:00 112 mm[Hg] [facility] Diastolic blood 2022-08-03 12:13:00 77 mm[Hg] [facility] Heart rate 2022-08-03 12:13:00 115 /min [facility] Oxygen saturation in 2022-08-03 12:13:00 93 /min [facility] Arterial blood by Medical nter Pulse oximetry Body temperature 2022-08-03 12:00:00 36.83 Radha [facility] Body height 2022-08-02 21:52:00 160.2 cm [facility] Body weight 2022-08-02 21:52:00 95 kg [facility] BMI 2022-08-02 21:52:00 37.02 kg/m2 [facility] BP Systolic 2022-07-24 13:31:00 136 mm[Hg] [...] ECG 12-LEAD 2022-08-03 Unknown, Hl7 Doctor [facility] 05:03:32 [facility] ECG 12-LEAD 2022-08-03 Unknown, Hl7 Doctor [facility] 05:03:32 [facility] ECG 12-LEAD 2022-08-03 Unknown, Hl7 Doctor [facility] 05:03:32 [facility] LIPID PANEL 2022-08-[address] [facility] 21:14:00 [facility] TSH/FREE T4 IF INDICATED 2022-08-[address] [facility] 21:14:00 [facility] VITAMIN B12 2022-08-[address] [facility] 21:14:00 [facility] HEMOGLOBIN A1C 2022-08-[address] [facility] 21:14:00 [facility] COMPREHENSIVE METABOLIC PANEL 2022-08-02 Donaldo Hightower [facility] 21:14:00 [facility] CBC W/PLT COUNT & AUTO 2022-08-02 Donaldo Hightower [facility] DIFFERENTIAL 21:14:00 [facility] RPR 2022-08-[address] [facility] 21:14:00 [facility] HC LAB HIV-1 AG W/HIV-1&2 AB 2022-08-[address] [facility] 21:14:00 [facility] C-REACTIVE PROTEIN 2022-08-[address] [facility] 21:14:00 [facility] CBC W/PLT COUNT & AUTO 2022-08-02 Donaldo Hightower [facility] DIFFERENTIAL 21:14:00 [facility] EKG-SCANNED 2022-08-02 ProviderEliceo [facility] 00:00:00 Scanning [facility] CT HEAD WO CONTRAST 2022-08-01 Lorenza Her [place] o f 23:52:15 [facility] GALV ONLY - INFLUENZA A B RSV 2022-08-01 Letitia Chambers iversity of PCR 18:28:00 [facility] TRANSTHORACIC ECHO (TTE) 2022-08-01 Kylee Diego ity of COMPLETE W/ CONTRAST 14:42:00 [facility] Branch MAGNESIUM 2022-08-01 Lorenza Her [place] of 10:42:00 [facility] BASIC METABOLIC PANEL (NA, K, 2022-08-01 Lorenza Her Un iversity of CL, CO2, GLUCOSE, BUN, 10:42:00 [facility] ical CREATININE, [place]) Branch CBC WITH DIFF 2022-08-01 Lorenza Her [place] of 10:42:00 [facility] N-TERMINAL PRO-BNP 2022-08-01 [facility] 10:42:00 [facility] POCT GLUCOSE (AUTOMATED) 2022-08-01 Lorenza Her [facility] ity of 06:56:00 [facility] CRITICAL CARE 2022-07-31 Sav Rondon [place] of 22:31:36 [facility] URINALYSIS 2022-07-31 Sav Rondon [place] of 20:52:00 [facility] URINE DRUG (IMMUNOASSAY) - 2022-07-[address] [facility] COMPREHENSIVE DRUG SCREEN W/O 20:52[place] [facility] REFLEX Branch XR CHEST 1 VW 2022-07-31 Sav Rondon of 18:45:17 [facility] LIPASE 2022-07-31 Sav Rondon of 17:58:00 [facility] TROPONIN I 2022-07-31 Sav Rondon [place] of 17:58:00 [facility] COMP. METABOLIC PANEL ([id number]) 2022-07-31 Sav Rondon iversity of 17:58:00 [facility] CBC WITH DIFF 2022-07-31 Sav Rondon of 17:58:00 [facility] PROTHROMBIN TIME / INR 2022-07-31 Sav Rondonit y of 17:58:00 [facility] ACTIVATED PARTIAL THRMPLAS 2022-07-[address] [facility] DAVID 17:58:00 [facility] N-TERMINAL PRO-BNP 2022-07-31 Sav Rondon [place] of 17:58:00 [facility] HB ECG ROUTINE & RHYTHM STRIP 2022-07-31 Sav Rondon iversity of 17:46:28 [facility] NOTICE OF PRIVACY PRACTICES 2022-07-31 Doctor Unassigned, U niversity of 17:35:38 [place] [facility] CONSENT/REFUSAL FOR DIAGNOSIS 2022-07-31 Doctor Unassigned, University of AND TREATMENT 17:35:13 [place] [facility] PHOSPHORUS 2022-05-08 Shefali [facility] 05:51:00 [facility] MAGNESIUM 2022-05-08 [facility] 05:51:00 [facility] BASIC METABOLIC PANEL (NA, K, 2022-05-08 Shefali, Azeem U niversity of CL, CO2, GLUCOSE, BUN, 05:51:00 [place] [facility] CREATININE, [place]) Branch CBC WITH DIFF 2022-05-08 Shefali [facility] of 05:51:00 [facility] BASIC METABOLIC PANEL (NA, K, 2022-05-07 [facility] of CL, CO2, GLUCOSE, BUN, 07:09:00 [facility] ica CREATININE, [place]) Branch CBC WITH DIFF 2022-05-07 [facility] of 07:09:00 [facility] POCT GLUCOSE (AUTOMATED) 2022-05-07 Brandyn Mcfarlane ity of 01:16:00 [facility] HB ABO GROUPING 2022-05-06 [facility] of 05:07:00 [facility] BASIC METABOLIC PANEL (NA, K, 2022-05-06 Shefali, Laurel U niversity of CL, CO2, GLUCOSE, BUN, 05:04:00 [place] [facility] ical CREATININE, [place]) Branch CBC WITH DIFF 2022-05-06 Shefali [facility] of 05:04:00 [facility] KEPPRA (LEVETIRACETAM) 2022-05-06 [facility] ty of 05:04:00 [facility] MR LUMBAR SPINE WO CONTRAST 2022-05-06 Kneedler, Ender U niversity of 02:54:37 [facility] ELECTROENCEPHALOGRAM 2022-05-06 [facility] ty of 00:00:00 [facility] BASIC METABOLIC PANEL (NA, K, 2022-05-05 [facility] of CL, CO2, GLUCOSE, BUN, 07:57:00 [facility] ica CREATININE, [place]) Branch CBC WITH DIFF 2022-05-05 [facility] 07:57:00 [facility] PROTHROMBIN TIME / INR 2022-05-05 [facility] ers[facility] of 07:57:00 [facility] ACTIVATED PARTIAL THRMPLAS 2022-05-05 [facility] of DAVID 07:57:00 [facility] FIBRINOGEN 2022-05-05 [facility] of 07:57:00 [facility] EMERGENCY SERVICES AGREEMENTS 2022-05-04 Doctor Unassigned, University of AND AUTHORIZATIONS 05:01:00 [place] [facility] VITAMIN D, 25-[place] 2022-04-15 [place] of 16:53:00 [facility] MR THORACIC SPINE WO CONTRAST 2022-04-15 Soumya Chua Un iversity of 11:56:19 [facility] MR CERVICAL SPINE WO CONTRAST 2022-04-15 Soumya Chua Un iversity of 11:20:00 [facility] BASIC METABOLIC PANEL (NA, K, 2022-04-15 Charmaine Morataya Un iversity of CL, CO2, GLUCOSE, BUN, 10:36:00 [place] [facility] ical CREATININE, [place]) Branch TEST, URINE 2022-04-15 [facility] 04:39:00 [facility] URINE DRUG (IMMUNOASSAY) - 2022-04-15 [facility] COMPREHENSIVE DRUG SCREEN 04:39:00 [facility] URINALYSIS 2022-04-15 [facility] of 04:39:00 [facility] TRANSTHORACIC ECHO (TTE) 2022-04-14 [facility] ity of COMPLETE W/ CONTRAST 16:37:03 [facility] Branch KEPPRA (LEVETIRACETAM) 2022-04-14 [facility] of 15:30:00 [facility] MAGNESIUM 2022-04-14 [facility] of 10:03:00 [facility] BASIC METABOLIC PANEL (NA, K, 2022-04-14 Harshil [facility] Un iversity of CL, CO2, GLUCOSE, BUN, 10:03:00 [place] [facility] CREATININE, [place]) Branch MR LUMBAR SPINE WO CONTRAST 2022-04-14 [facility] ersity of 02:48:12 [facility] MR STROKE BRAIN WO CONTRAST 2022-04-14 [facility] ersity of 02:29:[address] [facility] [address] STROKE ANGIOGRAM HEAD 2022-04-[address] [facility] ersity of 18:40:[address] [facility] [address] STROKE ANGIOGRAM NECK 2022-04-[address] [facility] ersity of 18:40:[address] [facility] [address] STROKE HEAD WO CONTRAST 2022-04-13 Sapna Vargas Un iversity of 18:36:00 [facility] TROPONIN I 2022-04-13 Sapna Vargas [facility] 18:17:00 [facility] THYROID STIMULATING HORMONE 2022-04-13 [facility] ersity of 18:17:00 [facility] BASIC METABOLIC PANEL (NA, K, 2022-04-13 Sapna Vargas [facility] CL, CO2, GLUCOSE, BUN, 18:17:00 [facility] ical CREATININE, CA) Branch LIPID PANEL (66068)(TOTAL 2022-04-13 [facility] sit of CHOLESTEROL, TRIGLYCERIDES, 18:17:00 [facility] HDL) Branch CBC WITHOUT DIFF 2022-04-13 Sapna Vargas [place] o f 18:17:00 [facility] GLYCOSYLATED HEMOGLOBIN (A1C) 2022-04-13 Harshil [facility] Un iversity of 18:17:00 [facility] PROTHROMBIN TIME / INR 2022-04-13 Sapna Vargas [facility] sity of 18:17:00 [facility] ACTIVATED PARTIAL THRMPLAS 2022-04-13 Sapna Vargas iversity of DAVID 18:17:00 [facility] COVID-19 (ID NOW RAPID 2022-04-13 Sapna Vargas [facility] sity of TESTING) 18:17:00 [facility] LAB ONLY COVID INTERPRETATION 2022-04-13 Sapna Vargas [facility] 18:17:00 [facility] HB ECG ROUTINE & RHYTHM STRIP 2022-04-13 Sapna Vargas [facility] 18:15:49 [facility] CONSENT/REFUSAL FOR DIAGNOSIS 2022-04-13 Doctor Unassigned, [facility] AND TREATMENT 18:05:14 [place] [facility] HOSPITAL ADMISSION 2022-04-13 Doctor Unassigned, [facility] 05:01:00 [place] [facility] SARS-COV-2 COVID-19 VACCINE 2022-02-19 Doctor Unassigned, U niversity of 12 YRS+,0.3ML,IM (PFIZER - 15:21:12 [place] URINE DRUG (IMMUNOASSAY) - 2021-11-23 Nichelle Allison U niversity of COMPREHENSIVE DRUG SCREEN W[place]O [place] [facility] [place] HEAD WO CONTRAST 2021-11-23 [facility] ty of 20:58:00 [facility] POCT TEST 2021-11-23 [facility] ty of 20:46:00 [facility] URINALYSIS 2021-11-23 [facility] o f 20:43:00 [facility] LIPASE 2021-11-23 [facility] o f 20:27:00 [facility] TROPONIN I 2021-11-23 [facility] o f 20:27:00 [facility] COMP. METABOLIC PANEL (74171) 2021-11-23 [facility] of 20:27:00 [facility] CBC WITH DIFF 2021-11-23 [facility] o f 20:27:00 [facility] POCT GLUCOSE (AUTOMATED) 2021-11-23 Doctor Unassigned, Univ ersity of 20:15:00 [place] [facility] SARS-COV-2 COVID-19 2021-05-24 Doctor Unassigned, Universit y of VACCINE,0.3ML,IM (PFIZER) 14:23:12 [place] [facility] SARS-COV-2 COVID-19 2021-05-03 Doctor Unassigned, Universit y of VACCINE,0.3ML,IM (PFIZER) 14:59:29 [place] [facility] EMERGENCY SERVICES AGREEMENTS 2021-04-16 Doctor Unassigned, [place] of AND AUTHORIZATIONS 05:01:00 [place] [facility] URINALYSIS 2021-03-17 Fabrice Chakraborty [place] of 03:09:00 [facility] XR CHEST 1 VW 2021-03-17 [facility] of 01:45:07 [facility] TROPONIN I 2021-03-17 Vincent, [facility] of 01:35:00 [facility] COMP. METABOLIC PANEL (47936) 2021-03-17 Fabrice Chakraborty Un iversity of 01:35:00 [facility] CBC WITH DIFF 2021-03-17 Fabrice Chakraborty [place] of 01:35:00 [facility] N-TERMINAL PRO-BNP 2021-03-17 [facility] of 01:35:00 [facility] COVID-19 (ID NOW RAPID 2021-03-17 Brian Ray [facility] y of TESTING) 00:58:00 [facility] CONSENT/REFUSAL FOR DIAGNOSIS 2021-03-17 Doctor Unassigned, [facility] AND [facility] 00:32:59 [place] [facility] COVID-19 (ID NOW RAPID 2021-02-19 Anali Patel [facility] y of TESTING) 17:04:[address] [facility] [address] ABDOMEN PELVIS W CONTRAST 2021-02-19 Anali Patel Uni versity of 16:41:18 [facility] LIPASE 2021-02-19 Anali Patel [place] of 15:58:00 [facility] COMP. METABOLIC PANEL (31576) 2021-02-19 Anali Patel Un iversity of 15:58:00 [facility] CBC WITH DIFF 2021-02-19 Anali Patel [place] of 15:58:00 [facility] URINALYSIS 2021-02-19 Anali Patel [place] of 15:58:00 [facility] NOTICE OF PRIVACY PRACTICES 2021-02-19 Doctor Unassjulee, U niversity of 15:30:46 [place] [facility] CONSENT/REFUSAL FOR DIAGNOSIS 2021-02-19 Doctor Unassigned, [facility] AND [facility] 15:30:30 [place] [facility] Plan of Care Planned Activity Planned Date Details Comments Source Future Scheduled 2025-08-02 Lipid panel (procedure) [facility] 00:00:00 [code = 73455726] Medical Ce nter Future Scheduled 2025-08-02 Lipid panel (procedure) [facility] 00:00:00 [code = 27909400] Medical Ce nter Future Scheduled 2025-08-02 Lipid panel (procedure) [facility] 00:00:00 [code = 36320356] Medical Ce nter Future Scheduled 2025-08-02 Lipid panel (procedure) [facility] Test 00:00:00 [code = 06204900] Medical Ce nter Future Scheduled 2025-08-02 Lipid panel (procedure) [facility] 00:00:00 [code = 58162271] Medical Ce nter Future Scheduled 2025-08-02 Lipid panel (procedure) [facility] 00:00:00 [code = 20062557] Medical Ce nter Future Scheduled 2025-08-02 Lipid panel (procedure) [facility] 00:00:00 [code = 78673143] Medical Ce nter Future Scheduled 2025-08-02 Lipid panel (procedure) [facility] Test 00:00:00 [code = 32199103] Medical Ce nter Future Scheduled 2023-03-20 INFLUENZA [...] cervix Medical C enter (procedure) [code = 176078057] Future Scheduled 1993-01-14 Screening for malignant [facility] Test 00:00:00 neoplasm of cervix Medical C enter (procedure) [code = 128017989] Future Scheduled 1993-01-14 Screening for malignant [facility] Test 00:00:00 neoplasm of cervix Medical C enter (procedure) [code = 254793969] Future Scheduled 1993-01-14 Screening for malignant [facility] Test 00:00:00 neoplasm of cervix Medical C enter (procedure) [code = 381956561] Future Scheduled 1993-01-14 Screening for malignant [facility] Test 00:00:00 neoplasm of cervix Medical C enter (procedure) [code = 376101237] Future Scheduled 1993-01-14 Screening for malignant [facility] Test 00:00:00 neoplasm of cervix Medical C enter (procedure) [code = 485169718] Future Scheduled 1993-01-14 Screening for malignant [facility] 00:00:00 neoplasm of cervix Medical C enter (procedure) [code = 557787761] Future Scheduled 1993-01-14 Screening for malignant [facility] Test 00:00:00 neoplasm of cervix Medical C enter (procedure) [code = 317200489] Future Scheduled 1991-01-14 DTAP/TDAP/TD VACCINES CH I [...] breast Medical C enter (procedure) [code = 857013336] Future Scheduled 1972 CT Colonography (combo) [facility] 00:00:00 [code = CT Colonography [facility] (combo)] Future Scheduled 1972 Screening for malignant [facility] Test 00:00:00 neoplasm of colon Medical Ce nter (procedure) [code = 535811073] Future Scheduled 1972 Screening for malignant [facility] Test 00:00:00 neoplasm of colon Medical Ce nter (procedure) [code = 071040411] Future Scheduled 1972 Screening for malignant [facility] 00:00:00 neoplasm of colon Medical Ce nter (procedure) [code = 139038646] Future Scheduled 1972 Screening for malignant [facility] 00:00:00 neoplasm of colon Medical Ce nter (procedure) [code = 525347537] Future Scheduled 1972 Sigmoidoscopy [code = [facility]oscopy] Medical [facility] r Future Scheduled 1972 Screening for malignant [facility] 00:00:00 neoplasm of breast Medical C enter (procedure) [code = 122689172] Future Scheduled 1972 CT Colonography (combo) [facility] 00:00:00 [code = CT Colonography [facility] (combo)] Future Scheduled 1972 Screening for malignant [facility] 00:00:00 neoplasm of colon Medical Ce nter (procedure) [code = 789452220] Future Scheduled 1972 Screening for malignant [facility] 00:00:00 neoplasm of colon Medical Ce nter (procedure) [code = 825777732] Future Scheduled 1972 Screening for malignant [facility] 00:00:00 neoplasm of colon Medical Ce nter (procedure) [code = 163122292] Future Scheduled 1972 Screening for malignant [facility] 00:00:00 neoplasm of colon Medical Ce nter (procedure) [code = 259187158] Future Scheduled 1972 Sigmoidoscopy [facility] S[facility]oscopy] Medical Cente r Future Scheduled 1972 Screening for malignant [facility] 00:00:00 neoplasm of breast Medical C enter (procedure) [code = 836772455] Future Scheduled 1972 CT Colonography (combo) [facility] 00:00:00 [code = CT Colonography [facility] (combo)] Future Scheduled 1972 Screening for malignant [facility] 00:00:00 neoplasm of colon Medical Ce nter (procedure) [code = 744842180] Future Scheduled 1972 Screening for malignant [facility] 00:00:00 neoplasm of colon Medical Ce nter (procedure) [code = 976334664] Future Scheduled 1972 Screening for malignant [facility] 00:00:00 neoplasm of colon Medical Ce nter (procedure) [code = 659568995] Future Scheduled 1972 Screening for malignant [facility] 00:00:00 neoplasm of colon Medical Ce nter (procedure) [code = 043125181] Future Scheduled 1972 Sigmoidoscopy [facility]oscopy] Medical Christine r Future Scheduled 1972 Screening for malignant [facility] 00:00:00 neoplasm of breast Medical C enter (procedure) [code = 348508498] Future Scheduled 1972 CT Colonography (combo) [facility] 00:00:00 [code = CT Colonography [facility] (combo)] Future Scheduled 1972 Screening for malignant [facility] 00:00:00 neoplasm of colon Medical Ce nter (procedure) [code = 079746189] Future Scheduled 1972 Screening for malignant [facility] 00:00:00 neoplasm of colon Medical Ce nter (procedure) [code = 762143016] Future Scheduled 1972 Screening for malignant [facility] 00:00:00 neoplasm of colon Medical Ce nter (procedure) [code = 918273837] Future Scheduled 1972 Screening for malignant [facility] 00:00:00 neoplasm of colon Medical Ce nter (procedure) [code = 730472537] Future Scheduled 1972 Sigmoidoscopy [facility]code [facility]oscopy] Medical Cente r Future Scheduled 1972 Screening for malignant [facility] 00:00:00 neoplasm of breast Medical C enter (procedure) [code = 573545099] Future Scheduled 1972 CT Colonography (combo) [facility] 00:00:00 [code = CT Colonography [facility] (combo)] Future Scheduled 1972 Screening for malignant [facility] 00:00:00 neoplasm of colon Medical Ce nter (procedure) [code = 527297616] Future Scheduled 1972 Screening for malignant [facility] 00:00:00 neoplasm of colon Medical Ce nter (procedure) [code = 958882307] Future Scheduled 1972 Screening for malignant [facility] 00:00:00 neoplasm of colon Medical Ce nter (procedure) [code = 191467284] Future Scheduled 1972 Screening for malignant [facility] 00:00:00 neoplasm of colon Medical Ce nter (procedure) [code = 500166252] Future Scheduled 1972 Sigmoidoscopy [facility] S[facility]oscopy] Medical Cente r Future Scheduled 1972 Screening for malignant [facility] 00:00:00 neoplasm of breast Medical C enter (procedure) [code = 035203976] Future Scheduled 1972 CT Colonography (combo) [facility] 00:00:00 [code = CT Colonography [facility] (combo)] Future Scheduled 1972 Screening for malignant [facility] 00:00:00 neoplasm of colon Medical Ce nter (procedure) [code = 954410392] Future Scheduled 1972 Screening for malignant [facility] 00:00:00 neoplasm of colon Medical Ce nter (procedure) [code = 029735612] Future Scheduled 1972 Screening for malignant [facility] 00:00:00 neoplasm of colon Medical Ce nter (procedure) [code = 338249146] Future Scheduled 1972 Screening for malignant [facility] 00:00:00 neoplasm of colon Medical Ce nter (procedure) [code = 414143653] Future Scheduled 1972 Sigmoidoscopy [facility]code [facility]oscopy] Medical Christine r Future Scheduled 1972 Screening for malignant [facility] 00:00:00 neoplasm of breast Medical C enter (procedure) [code = 724318333] Future Scheduled 1972 CT Colonography (combo) [facility] 00:00:00 [code = CT Colonography [facility] (combo)] Future Scheduled 1972 Screening for malignant [facility] 00:00:00 neoplasm of colon Medical Ce nter (procedure) [code = 083761853] Future Scheduled 1972 Screening for malignant [facility] 00:00:00 neoplasm of colon Medical Ce nter (procedure) [code = 299067578] Future Scheduled 1972 Screening for malignant [facility] 00:00:00 neoplasm of colon Medical Ce nter (procedure) [code = 797057141] Future Scheduled 1972 Screening for malignant [facility] 00:00:00 neoplasm of colon Medical Ce nter (procedure) [code = 901229540] Future Scheduled 1972 Sigmoidoscopy [facility]oscopy] Medical Christine r Future Scheduled 1972 Screening for malignant [facility] 00:00:00 neoplasm of breast Medical C enter (procedure) [code = 740575667] Future Scheduled 1972 CT Colonography (combo) [facility] 00:00:00 [code = CT Colonography [facility] (combo)] Future Scheduled 1972 Screening for malignant [facility] 00:00:00 neoplasm of colon Medical Ce nter (procedure) [code = 817155085] Future Scheduled 1972 Screening for malignant [facility] 00:00:00 neoplasm of colon Medical Ce nter (procedure) [code = 500857168] Future Scheduled 1972 Screening for malignant [facility] 00:00:00 neoplasm of colon Medical Ce nter (procedure) [code = 668644150] Future Scheduled 1972 Screening for malignant [facility] 00:00:00 neoplasm of colon Medical Ce nter (procedure) [code = 146500178] Future Scheduled 1972 Sigmoidoscopy [facility]] Medical Cente r Goal Plan of Care Note [code = 94048-6] Goal Plan of Care Note [code = 39349-2] Goal Plan of Care Note [code = 56412-1] Goal Plan of Care Note [code = 63471-7] Goal Plan of Care Note [code = 31527-2] Goal Plan of Care Note [code = 39389-8] Goal Plan of Care Note [code = 06239-6] Goal Plan of Care Note [code = 86391-8] Goal Plan of Care Note [code = 39757-9] Goal Plan of Care Note [code = 00025-3] Goal Plan of Care Note [code = 36454-6] Goal Plan of Care Note [code = 00770-6] Goal Plan of Care Note [code = 47329-9] Goal Plan of Care Note [code = 66125-0] Goal Plan of Care Note [code = 45724-1] Goal Plan of Care Note [code = 32630-1] Goal Plan of Care Note [code = 18277-9] Goal Plan of Care Note [code = 14252-7] Goal Plan of Care Note [code = 66005-8] Goal Plan of Care Note [code = 55418-4] Goal Plan of Care Note [code = 85735-1] Goal Plan of Care Note [code = 00326-9] Goal Plan of Care Note [code = 67507-9] Goal Plan of Care Note [code = 61584-2] Goal Plan of Care Note [code = 96216-6] Goal Plan of Care Note [code = 25611-8] Goal Plan of Care Note [code = 92811-1] Goal Plan of Care Note [code = 01161-7] Goal Plan of Care Note [code = 24825-6] Goal Plan of Care Note [code = 89744-2] Goal Plan of Care Note [code = 93600-0] Goal Plan of Care Note [code = 33754-5] Goal Plan of Care Note [code = 61919-3] Goal Plan of Care Note [code = 34363-3] Goal Plan of Care Note [code = 25016-5] Encounters Start End Encounter Admission Attending Care Care Encounter Source Date/Time Date/Time Type Type Clinicians Facility Department ID 2021-05-20 Emergency [facility] [id number] Univers 18:48:04 ity [facility] 2021-05-20 Emergency [facility] [id number] Univers 12:43:40 ity [facility] 2022-11-17 2022-11-18 Emergency X BRIANA, [facility] ERT [id number] Univers 17:25:00 01:19:00 RITCHIE ity [facility] 2022-11-17 2022-11-18 Emergency Briana, [facility] 1.2.069.731 [id number] Univers 17:25:00 01:19:00 Ritchie Stoner [place] 350.1.13.10 [place] [id number] [facility] 084 Branch 2022-08-28 2022-08-28 Patient Shy Beckman 1.2.840.114 [id number] Univers 00:00:00 00:00:00 Outreach E [place] 350.1.13.10 [place] [id number] [facility] 403 Branch 2022-08-20 2022-08-20 Patient Shy Beckman 1.2.840.114 [id number] Univers 00:00:00 00:00:00 Outreach E [place] 350.1.13.10 [place] [id number] [facility] 403 Branch 2022-08-02 2022-08-03 [facility] [id number] [facility] 17:30:00 14:29:00 Encounter Jen Yepez, [facility] 2022-08-02 2022-08-03 Outpatient ER ROXI, [facility] Neurology [id number] [facility] 17:30:00 14:29:00 [facility] 2022-08-02 2022-08-03 Hospital ER Halima Mendoza [facility] [id number] 17:30:00 14:29:00 Encounter Jen [facility]pez [facility] 2022-08-03 2022-08-[address] [facility] [id number] 00:00:00 00:00:00 Only [facility] 2022-08-03 2022-08-[address] [facility] [id number] 00:00:00 00:00:00 Only [facility] 2022-08-02 2022-08-02 Travel [facility] [id number] [facility] 00:[facility]00 00:00:00 [facility] 2022-08-02 2022-08-02 Travel [facility] [id number] [facility] 00:[facility]00 00:00:00 [facility] 2022-07-31 2022-08-01 Inpatient X [facility] [id number] Univers 11:42:00 21:48:00 LORENZA ity of [facility] 2022-07-31 2022-08-01 [facility] Sav Rondon [facility] 1.2.840.1 [id number] Univers 11:42:00 21:48:00 Encounter Lorenza Her 350.1.13.10 ity of [facility] [place] [id number] [facility] 080 Branch 2022-08-01 2022-08-01 Transition BLAYNE Nicole 1.2.840.114 [id number] Univers 00:00:00 00:00:00 of Care Maria Teresa [place] 350.1.13.10 [place] [id number] [facility] 403 Branch 2022-07-28 2022-07-28 Outpatient SFA BHARAT [id number] Adria 14:41:38 14:41:38 0109 F Mauricio 2022-07-28 2022-07-28 Outpatient [id number] 00:00:00 00:00:00 Visit [id number] 2022-07-24 2022-07-24 Outpatient SFA [id number] Adria 13:24:40 13:24:40 0105 F Mauricio 2022-05-23 2022-05-23 Outpatient SFA [id number] Adria 14:51:01 14:51:01 1104 F Mauricio 2022-05-23 2022-05-23 Outpatient [id number] 00:00:00 00:00:00 Visit [id number] -[id number] 2022-05-04 2022-05-08 Outpatient X CHANTEL MATTHEWS [facility] S [id number] Univers 20:22:00 14:44:00 CHANTEL MATTHEWS [facility] 2022-05-04 2022-05-08 Emergency BrinerBrandyn 1.2.840.1 [id number] Univers 20:22:00 14:44:00 [facility]ant[facility] Matthews 350.1.13 .10 [facility].2.7[facility] [place] [id number] 2022-04-13 2022-04-15 Inpatient X [facility] BERNARD[facility] [id number] Univers 13:06:00 15:00:00 [facility] 2022-04-13 2022-04-15 [facility] Sapna Vargas 1.2.84 0.114 [id number] Univers 13:06:00 15:00:00 Encounter [facility] Est[facility]. 1.13.10 [facility] [place] [id number] 2022-02-19 2022-02-19 Imm/Inj Vaccine, [facility] [place] JUSTINE 1.2.840.114 [id number] Univers 10:20:00 10:30:00 Visit Pasha Jose [place] 350.1.13.10 [place] [facility] [id number] [address] 2022-02-19 2022-02-19 Outpatient R JOSE FREDERICK [facility] [id number] Univers 10:20:00 10:20:00 ity of [facility] 2021-11-23 2021-11-23 Emergency X AJAYSEMAURICE [facility] ERT [id number] Univers 15:07:00 17:03:00 FOLDAVIDO ity of [facility] 2021-11-23 2021-11-23 Emergency Alcon Sav [facility] 1.2.840. 114 [id number] Univers 15:07:00 17:03:00 Nichelle Allison F MARY 350.1.13. [address] 4[address]2.7[address]686 [facility] [id number] [facility] 084 Branch 2021-11-21 2021-11-21 Outpatient R [facility] [id number] Univers 09:40:00 09:40:00 ity of [facility] 2021-05-24 2021-05-24 Outpatient R JOSE FREDERICK [facility] [id number] Univers 09:30:00 09:30:00 ity of [facility] 2021-05-24 2021-05-24 Imm/Inj Vaccine, [facility] [place] 1.2.840.114 [id number] Univers 08:47:51 08:57:51 Visit Jose Frederick 350.1.13.10 [place] [id number] [address] 2021-05-03 2021-05-03 Outpatient R PASHAJOSE REVELES [facility] [id number] Univers 09:40:00 09:59:35 ity of [facility] 2021-05-03 2021-05-03 Imm/Inj Vaccine, [facility] [place] 1.2.840.114 [id number] Univers 09:17:43 09:59:35 Visit Jose Frederick 350.1.13.10 [place] [id number] [facility] 225 Branch 2021-04-16 2021-04-16 Orders Doctor EWELINA 1.2.840.114 [id number] Univers 00:00:00 00:00:00 Only Unassigned, [place] 350.1.13.10 ity of [place] [facility] 4.2.7.2.686 Javier as [id number] [facility] 009 Branch 2021-03-17 2021-03-17 Telephone EWELINA Nava 1.2.402.356 [id number] Univers 00:00:00 00:00:00 Aneatrice [place] 350.1.13.10 ity of [facility] 4.2.7.2.686 Javier as [id number] [facility] 019 Branch 2021-03-16 2021-03-16 Emergency Palmer [facility] 1.2.840.114 [id number] Univers 20:08:00 23:24:00 Shinberyl Harrell 350.1.13.10 i ty of [place] 4.2.7.2.686 [facility] [id number] [place] [id number] [place] 2021-03-14 2021-03-14 Urgent Lydia Desouza [facility] 1.2.840.114 [id number] Univers 18:59:34 20:19:13 Care Unknown, Attending [facility] 350.1.13.10 ity of [place] 4.2.7.2.686 Javier as Prem?Blea [id number] Az giuliana[address] Medical Office Building 2021-03-14 2021-03-14 Outpatient R UNKNOWN, [facility] [id number] Univers 19:00:00 19:00:00 ATTENDING [facility] Center 2021-02-19 2021-02-[address] [facility] [id number] [employer] 10:49:00 14:48:00 Anali Harrell 350.1.13.10 i [place] [phone] [address] 2019-03-09 2019-03-09 Dick Arcos [facility] 1.2.840.114 [id number] 00:00:00 00:00:00 Yehuda Harrell 350.1.13.10 [place] 4.2.7.2.686 Professio [phone] nal 092 [facility] 2019-03-09 2019-03-09 Dick Arcos NDKEVIN 1.2.840.114 [id number] [facility] 00:00:00 00:00:00 Yehuda Harrell 350.1.13.10 ity of [place] 4.2.7.2.686 [place] s Professio [id number] Az dical nal 092 [facility] Results Test Description Test Time Test Comments Results Result Comments Source RPR 2022-08-05 13:17:22 Test Item Value Reference Range Interpretation Comme nts RPR SCREEN (LATOYA) (test code = 420) Nonreactive Nonreactive HEMOGLOBIN [id number] 10:39:49 Test Item Value Reference Range Interpretation Comments HEMOGLOBIN A1C 5.8 % See_Comment H [Automated m essage] ELECTROPHORESIS (LATOYA) The system which (test code = 3811) generated this result transmitted ref erence range: <=5.6%. The reference range was not used to int erpret this result as normal/abnormal . "The A1c is measured using a [facility]certified method. HbA1c value equal to or greater than 6.5% as thediagnosis cutoff for diabetes. An HbA1c value of 5.7- 6.4% indicates increased risk for diabetes (prediabetes)."Dietetic Intern ID - ADM VITAMIN [id number] 22:48:27 Test Item Value Reference Range Interpretation Comments VITAMIN B12 (LATOYA) (test code = 227 pg/mL 213-816 774) Dietetic Intern ID - MARCOTSH/FREE T4 IF [id number] 22:08:28 Test Item Value Reference Range Interpretation Comments THYROID STIMULATING HORMONE 3.309 uIU/mL 0.350-4.940 (BlogHerBRIDGER) (test code = 772) Dietetic Intern ID - JSHIV-1 ANTIGEN WITH HIV-1/2 [id number] 22:08:28 Test Item Value Reference Range Interpretation Comments HIV-1 ANTIGEN WITH HIV 1\\T\\2 Nonreactive Nonreactive ANTIBODY (2) (BlogHerAKER) (test code = 2586) Dietetic Intern ID - JSC-REACTIVE [id number] 21:49:44 Test Item Value Reference Range Interpretation Comments C-REACTIVE PROTEIN (BEAKER) (test 0.35 mg/dL 0.00-0.50 code = 676) Dietetic Intern ID - JSCOMPREHENSIVE METABOLIC [id number] 21:49:43 Test Item Value Reference Range Interpretation [...] not appl icable for dialysis patien ts Dietetic Intern ID - JSLIPID [id number] 21:49:43 Test Item Value Reference Range Interpretation [...] Borderline 130-159 High 160-189 Very High >=190 Dietetic Intern ID - JSCBC W/PLT COUNT & AUTO [id number] 21:34:03 Test Item Value Reference Range Interpretation [...] Interpretation Comments Height (test code = in 4823299853) Weight (test code = lbs 4025079646) Systolic BP (test code = mmHg 7959976313) Diastolic BP (test code mmHg = 3638275349) Heart Rate (test code = bpm 4488518579) BSA (test code = 2.00 m2 5883039921) Ao root diam (test code 3.20 cm = 9613932669) Aortic root (test code = 3.2 cm 1685019647) Ao root annulus (test 3.2 cm code = 0251559227) LVOT diameter (test code 1.99 cm = 1126011476) LVOT area (test code = 3.10 cm2 2003907898) LVIDD (test code = 5.10 cm 3852154160) Left Ventricular End 123.0 mL Diastolic Volume by Teichholz Method (test code = 9312200) IVS (test code = 1.34 cm 6660752251) Interventricular Septum 1.34 cm Diastolic Thickness by 2D (test code = 1456252) LVPWD (test code = 1.34 cm 7362501066) PW (test code = 1.34 cm 0.6-1.3 1681278384) EF(Teich) (test code = 41.80 % 9351132600) LVIDS (test code = 4.00 cm 6587317231) Left Ventricular End 71.5 mL Systolic Volume by Teichholz Method (test code = 9951224) FS (test code = 21 % 2684966938) EF - 2D (test code = 41.80 % 77544551) LA size (test code = 4.6 cm 7041105383) Pulmonic Regurgitant End 119.4 cm/s Max Velocity (test code = 5433756151) LAV(MOD-sp4) (test code 95.00 mL = 6537234880) E wave decelartion time 0.15 s (test code = 9272569273) MV stenosis pressure 1/2 45.6 ms time (test code = 2216618099) MV Peak A Evette (test code 123.8 cm/s = 8501553712) MV Peak E Evette (test code 109.7 cm/s = 2982147362) E/A ratio (test code = ratio 2369116605) MR max PG (test code = 87.20 mm[Hg] 8079033693) MR max evette (test code = 466.90 cm/s 9125012002) Mr max evette (test code = 466.9 m/s 8736780170) MV Prop V (test code = 51.00 cm/s 5347568743) MV E/e' septal (test 8.1 cm/s code = 7464573203) Tapse (test code = 2.21 cm 5624079878) LVOT stroke volume (test 49.80 cm3 code = 0786769365) LVOT peak evette (test code 89.1 cm/s = 1649195499) LVOT mn grad (test code mmHg = 3450580737) AV LVOT peak gradient mmHg (test code = 6036607206) LVOT peak VTI (test code 16.0 cm = 2772361891) LV V1 mean (test code = 64.30 cm/s 5500565190) Aortic valve mean 133.8 cm/s velocity (test code = 9314303078) Ao peak evette (test code = 175.3 cm/s 9071127278) Ao VTI (test code = 32.2 cm 5167331701) AV area by cont VTI 1.6 cm2 (test code = 1610330178) AV area peak evette (test 1.6 cm2 code = 9194912816) Ao max PG (test code = 12.30 mm[Hg] 1033153216) AV peak gradient (test mmHg code = 6608150983) AV valve area (test code 1.55 cm2 = 7438351243) AV mean gradient (test mmHg code = 0242805641) AV regurgitation 358.5 ms pressure 1/2 time (test code = 8773199835) AI dec slope (test code 364.20 cm/s2 = 1720753801) AI max evette (test code = 445.80 cm/s 0704979380) AI max PG (test code = 79.50 mm[Hg] 4125128560) Radiology Study observation (narrative) (test code = 15376-0) LYNDSAY (test code = LYNDSAY) ?Left?Ventricle: Left [...] mL of Lumason ultrasound enhancing agent used. [facility]2022-08-01 10:43:32 Test Item Value Reference Range Interpretation Comments POCT GLU (test code = 9988794570) 148 mg/dL 70-110 H Lab Interpretation (test code = Abnormal 48789-0) [facility]field[facility]IV[facility] PARTIAL THRMPLAS [id number] 18:39:45 Test Item Value Reference Range Interpretation Comments APTT Patient (test See_Comment [Automat ed code = 3173-2) message] The system which generated this result transmitted reference range : 23 - 38 Seconds . The reference range was not used to interpr et this result as normal/abnormal . LYNDSAY (test code = LYNDSAY) The [facility] patient population mean normal value for aPTT is 30 seconds. Lab Interpretation Normal (test code = 46281-1) [facility]fieldPROTHROMBIN TIME / [id number] 18:37:42 Test Item Value Reference Range Interpretation [...] tions. Lab Interpretation (test Normal code = 50381-4) [facility]fieldTR[facility]IN [id number] 18:32:01 Test Item Value Reference Interpretation Comments Range TROPONIN I (test 0.019 ng/mL See_Comment [Automated code = 6055523175) message] The system which generated this result [...] biotin. Lab Interpretation Normal (test code = 54422-1) [facility]field[facility]-TERMINAL [id number] 18:29:01 Test Item Value Reference Range Interpretation Comments NT-proBNP (test code 2770 pg/mL See_Comment H [Autom ated = 0166206059) message] The system which generated this result transmitted reference range : <=125. The reference range was not used to interpret this result as normal/abnormal . LYNDSAY (test code = LYNDSAY) Biotin has been reported to cause a negative bias, interpret results relative to patient's use of biotin. Lab Interpretation Abnormal (test code = 18493-6) [facility]fieldCOMP. METABOLIC PANEL (32412)2022-07-31 18:21:42 Test Item Value Reference Range Interpretation Comments NA (test code = 136 mmol/L 135-145 1679064727) K (test code = 4.6 mmol/L 3.5-5.0 3863130164) CL (test code = 104 mmol/L 98-108 4726493541) CO2 TOTAL (test code = 26 mmol/L 23-31 4654457264) AGAP (test code = 2-16 5755855651) BUN (test code = 9 mg/dL 7-23 8467760073) GLUCOSE (test code = 97 mg/dL 70-110 1249610329) CREATININE (test code = 0.64 mg/dL 0.50-1.04 2886323712) TOTAL BILI (test code = 0.5 mg/dL 0.1-1.9 8758297256) CALCIUM (test code = 8.2 mg/dL 8.6-10.6 L 6197341671) T PROTEIN (test code = 6.5 g/dL 6.3-8.2 7082154146) ALBUMIN (test code = 3.9 g/dL 3.5-5.0 0587701328) ALK PHOS (test code = 93 U/L 34-122 0896992676) ALTv (test code = 18 U/L 5-35 1742-6) AST(SGOT) (test code = 19 U/L 13-40 9102111975) eGFR (test code = mL/min/1.73m2 6103817032) LYNDSAY (test code = LYNDSAY) Association of [...] tests). Lab Interpretation Abnormal (test code = 18033-7) [facility]field[facility]IPASE2023-01-12 18:21:01 Test Item Value Reference Range Interpretation Comments LIPASE (test code = 8211227410) 54 U/L 0-220 Lab Interpretation (test code = Normal 44667-9) [facility] WITH [id number] 18:07:00 Test Item Value Reference Range Interpretation [...] (test code = 53.1 fL 39.0-49.9 H 08007-0) RDW-CV (test code = 17.0 % 12.0-15.5 H 788-0) PLT (test code = See_Comment H [Automated 777-3) message] The sy stem which generated this result transmitted reference range : 166 - 358 10*3/ ?L. The reference r zoe was not used to interpret this result as normal/abnormal . MPV (test code = 8.2 fL 9.5-12.9 L 02487-3) NRBC/100 WBC (test See_Comment [Automat ed code = 3254769978) message] The system which generated this result transmitted reference range : 0.0 - 10.0 /100 WBCs. The refer ence range was not u sed to interpret th is result as normal/abnormal . NRBC x10^3 (test code See_Comment [Auto mated = 9251985267) message] The s ystem which generated this result transmitted reference range : 10*3/?L. The reference range was not used to interpret this result as normal/abnormal . GRAN MAT (NEUT) % 64.0 % (test code = 770-8) IMM GRAN % (test code 0.40 % = 0979799357) LYMPH % (test code = 27.3 % 736-9) MONO % (test code = 6.5 % 5905-5) EOS % (test code = 1.1 % 713-8) BASO % (test code = 0.7 % 706-2) GRAN MAT x10^3(ANC) 5.46 10*3/uL 1.88-7.09 (test code = 2171490648) IMM GRAN x10^3 (test 0.03 10*3/uL 0.00-0.06 code = 3899347634) LYMPH x10^3 (test code 2.32 10*3/uL 1.32-3.29 = 731-0) MONO x10^3 (test code 0.55 10*3/uL 0.33-0.92 = 742-7) EOS x10^3 (test code = 0.09 10*3/uL 0.03-0.39 711-2) BASO x10^3 (test code 0.06 10*3/uL 0.01-0.07 = 704-7) Lab Interpretation Abnormal (test code = 12296-9) [facility] METABOLIC PANEL (NA, K, CL, CO2, GLUCOSE, BUN, CREATININE, CA)2022-05-08 06:37:01 Test Item Value Reference Range Interpretation Comments NA (test code = 137 mmol/L 135-145 2748658950) K (test code = 3.8 mmol/L 3.5-5 5834339513) CL (test code = 103 mmol/L 98-108 4792013189) CO2 TOTAL (test code = 24 mmol/L 23-31 5231910900) AGAP (test code = 2-16 5243568736) BUN (test code = 13 mg/dL 7-23 8394606293) GLUCOSE (test code = 90 mg/dL 70-110 8896790580) CREATININE (test code = 0.69 mg/dL 0.5-1.04 4740302844) CALCIUM (test code = 8.5 mg/dL 8.6-10.6 L 4841657476) eGFR (test code = mL/min/1.73m2 2162849508) LYNDSAY (test code = LYNDSAY) Association of [...] tests). Lab Interpretation Abnormal (test code = 34242-7) [facility]2022-10-20 06:37:01 Test Item Value Reference Range Interpretation Comments MAGNESIUM (test code = 0148793155) 2.1 mg/dL 1.7-2.4 Lab Interpretation (test code = Normal 55275-1) [facility]OSPHORUS2022-10-20 06:37:01 Test Item Value Reference Range Interpretation Comments PHOSPHORUS (test code = 8338667679) 4.7 mg/dL 2.5-5 Lab Interpretation (test code = Normal 16716-3) [facility]fieldCB WITH [id number] 06:11:54 Test Item Value Reference Range Interpretation [...] (test code = 51.0 fL 39-49.9 H 15851-2) RDW-CV (test code = 16.5 % 12-15.5 H 788-0) PLT (test code = See_Comment H [Automated 777-3) message] The sy stem which generated this result transmitted reference range : 166 - 358 10*3/ ?L. The reference r zoe was not used to interpret this result as normal/abnormal . MPV (test code = 8.3 fL 9.5-12.9 L 27895-8) NRBC/100 WBC (test See_Comment [Automat ed code = 4302023547) message] The system which generated this result transmitted reference range : 0.0 - 10.0 /100 WBCs. The refer ence range was not u sed to interpret th is result as normal/abnormal . NRBC x10^3 (test code See_Comment [Auto mated = 2113651496) message] The s ystem which generated this result transmitted reference range : 10*3/?L. The reference range was not used to interpret this result as normal/abnormal . GRAN MAT (NEUT) % 64.5 % (test code = 770-8) IMM GRAN % (test code 0.50 % = 8805807373) LYMPH % (test code = 27.1 % 736-9) MONO % (test code = 6.6 % 5905-5) EOS % (test code = 0.6 % 713-8) BASO % (test code = 0.7 % 706-2) GRAN MAT x10^3(ANC) 5.28 10*3/uL 1.88-7.09 (test code = 2220411164) IMM GRAN x10^3 (test 0.04 10*3/uL 0-0.06 code = 8140460531) LYMPH x10^3 (test code 2.22 10*3/uL 1.32-3.29 = 731-0) MONO x10^3 (test code 0.54 10*3/uL 0.33-0.92 = 742-7) EOS x10^3 (test code = 0.05 10*3/uL 0.03-0.39 711-2) BASO x10^3 (test code 0.06 10*3/uL 0.01-0.07 = 704-7) Lab Interpretation Abnormal (test code = 56208-0) [facility] GLU[facility] (AUTOMATED)2022-05-07 01:18:10 Test Item Value Reference Range Interpretation Comments POCT GLU (test code = 8649605216) 120 mg/dL 70-110 H Lab Interpretation (test code = Abnormal 88683-1) [facility] MansfieldType and Screen - ONCE [id number] 05:46:35 Test Item Value Reference Range Interpretation Comments ABO & RH (test code O POSITIVE Performe d at [facility] = 20) Laboratory [facility] [place] [address]Igyw Free: [phone] A No. [id number] IAT (test code = Negative Performed a t [facility] 1185) Laboratory [facility] Blood [facility] [address] [place] [address] s [address]Gszv Free: [phone] A No. [id number] [facility]fieldBAS[facility] METABOLIC PANEL (NA, K, CL, CO2, GLUCOSE, BUN, CREATININE, CA)2022-05-05 08:22:57 Test Item Value Reference Range Interpretation Comments NA (test code = 136 mmol/L 135-145 8313308226) K (test code = 4.9 mmol/L 3.5-5 2928337107) CL (test code = 108 mmol/L 98-108 9846561641) CO2 TOTAL (test code = 22 mmol/L 23-31 L 5169653136) AGAP (test code = 2-16 0551745324) BUN (test code = 12 mg/dL 7-23 7035331823) GLUCOSE (test code = 155 mg/dL 70-110 H 7526153944) CREATININE (test code = 0.63 mg/dL 0.5-1.04 3484188763) CALCIUM (test code = 8.4 mg/dL 8.6-10.6 L 1309660022) eGFR (test code = mL/min/1.73m2 8708503809) LYNDSAY (test code = LYNDSAY) Association of [...] tests). Lab Interpretation Abnormal (test code = 02932-5) [facility]fieldPROTHROMBIN TIME / [id number] 08:22:37 Test Item Value Reference Range Interpretation Comments PROTIME PATIENT (test See_Comment [Auto mated message] code = 5964-2) The system [employer] ich generated this result transmitted ref erence range: 10.1 - 1 2.6 Seconds. The re ference range was not u sed to interpret this result as normal/abnor mal. INR (test code = 6301-6) Nor mal INR <1.1; Warfarin Therap eutic range 2.0 to 3. 0 or 2.5 to 3.5, dep ending upon the indica tions. Lab Interpretation (test Normal code = 04112-2) [facility]fieldaPTT2022-10-17 08:22:37 Test Item Value Reference Range Interpretation Comments APTT Patient (test code = See_Comment [ Automated message] 3173-2) The system Zy[employer] h generated this result transmitted ref erence range: 26 - 36 Seconds. The re ference range was not u sed to interpret this result as normal/abnor mal. Lab Interpretation (test Normal code = 70347-0) [facility]field[facility]IBRINOGEN2022-10-17 08:22:37 Test Item Value Reference Range Interpretation Comments Fibrinogen (test code = 1383184233) 294 mg/dL 167-453 Lab Interpretation (test code = Normal 72982-6) [facility]fieldCBC WITH [id number] 08:15:01 Test Item Value Reference Range Interpretation Comments WBC (test code = See_Comment [Automated 7290-2) message] The sy stem which generated this result transmitted reference range : 4.30 - 11.10 10*3/?L. The reference range was not used to interpret this result as normal/abnormal . RBC (test code = See_Comment [Automated 319-8) message] The sy stem which generated this [...] (test code = 52.9 fL 39-49.9 H 01094-9) RDW-CV (test code = 16.8 % 12-15.5 H 788-0) PLT (test code = See_Comment H [Automated 777-3) message] The sy stem which generated this result transmitted reference range : 166 - 358 10*3/ ?L. The reference r zoe was not used to interpret this result as normal/abnormal . MPV (test code = 8.3 fL 9.5-12.9 L 23327-6) NRBC/100 WBC (test See_Comment [Automat ed code = 7396772010) message] The system which generated this result transmitted reference range : 0.0 - 10.0 /100 WBCs. The refer ence range was not u sed to interpret th is result as normal/abnormal . NRBC x10^3 (test code See_Comment [Auto mated = 0491141219) message] The s ystem which generated this result transmitted reference range : 10*3/?L. The reference range was not used to interpret this result as normal/abnormal . GRAN MAT (NEUT) % 86.4 % (test code = 770-8) IMM GRAN % (test code 0.40 % = 7768618608) LYMPH % (test code = 11.7 % 736-9) MONO % (test code = 1.1 % 5905-5) EOS % (test code = 0.0 % 713-8) BASO % (test code = 0.4 % 706-2) GRAN MAT x10^3(ANC) 6.36 10*3/uL 1.88-7.09 (test code = 7957677957) IMM GRAN x10^3 (test 0.03 10*3/uL 0-0.06 code = 3395537372) LYMPH x10^3 (test code 0.86 10*3/uL 1.32-3.29 L = 731-0) MONO x10^3 (test code 0.08 10*3/uL 0.33-0.92 L = 742-7) EOS x10^3 (test code = 0.03-0.39 L 711-2) BASO x10^3 (test code 0.03 10*3/uL 0.01-0.07 = 704-7) Lab Interpretation Abnormal (test code = 12543-3) [facility]field[facility]IT[facility]IN D, [id number] 20:14:03 Test Item Value Reference Range Interpretation Comments VIT D 25OH (test code = 22 ng/mL 25-80 L 34156-7) LYNDSAY (test code = LYNDSAY) Deficiency: <20 ng/mLInsufficiency: 20-24 ng/mLOptimal: 25-80 ng/mL Lab Interpretation (test Abnormal code = 99224-5) [facility] (NA, K, CL, CO2, GLUCOSE, BUN, CREATININE, CA)2022-04-15 11:27:57 Test Item Value Reference Range Interpretation Comments NA (test code = 138 mmol/L 135-145 9878200121) K (test code = 3.9 mmol/L 3.5-5 5029219264) CL (test code = 106 mmol/L 98-108 5103211529) CO2 TOTAL (test code = 23 mmol/L 23-31 0262854206) AGAP (test code = 2-16 2810251451) BUN (test code = 10 mg/dL 7-23 9649628503) GLUCOSE (test code = 91 mg/dL 70-110 4690274773) CREATININE (test code = 0.65 mg/dL 0.5-1.04 3822228028) CALCIUM (test code = 8.1 mg/dL 8.6-10.6 L 2520487864) eGFR (test code = mL/min/1.73m2 6272412319) LYNDSAY (test code = LYNDSAY) Association of [...] tests). Lab Interpretation Abnormal (test code = 80417-9) [facility]fieldSTR[facility]KE Protocol - Transthoracic echo (TTE) 2022-04-14 22:07:33 Test Item Value Reference Range Interpretation Comments Height (test code = in 6956841069) Weight (test code = lbs 9431409168) Systolic BP (test code = mmHg 0110310553) Diastolic BP (test code mmHg = 2631696706) Heart Rate (test code = bpm 1001896868) BSA (test code = 1.94 m2 6878123325) TASV (test code = 15.5 cm/s 3123493320) LVIDD (test code = 6.00 cm 7341106600) Left Ventricular End 183.0 mL Diastolic Volume by Teichholz Method (test code = 5013404) IVS (test code = 1.09 cm 2397501664) Interventricular Septum 1.09 cm Diastolic Thickness by 2D (test code = 2327506) LVPWD (test code = 0.94 cm 3573076985) PW (test code = 0.94 cm 0.6-1.6 9537241183) EF(Teich) (test code = 40.30 % 2957982917) LVIDS (test code = 4.80 cm 8835531454) Left Ventricular End 109.2 mL Systolic Volume by Teichholz Method (test code = 0068997) FS (test code = 20 % 4294351770) EF - 2D (test code = 40.30 % 53531456) LVOT diameter (test code 2.05 cm = 6064811000) LVOT area (test code = 3.30 cm2 8347091741) Ao root diam (test code 3.10 cm = 3515349883) Aortic root (test code = 3.1 cm 8519003544) Ao root annulus (test 3.1 cm code = 0791111610) LA size (test code = 4.2 cm 5337761566) LAV(MOD-sp4) (test code 64.90 mL = 6842517915) MV Peak A Evette (test code 115.7 cm/s = 1404479457) E wave decelartion time 0.15 s (test code = 9122135174) MV Peak E Evette (test code 106.2 cm/s = 6529708172) E/A ratio (test code = ratio 2024226900) LVOT stroke volume (test 48.30 cm3 code = 8064354212) LVOT peak evette (test code 78.4 cm/s = 1374451953) LVOT mn grad (test code mmHg = 1556667387) AV LVOT peak gradient mmHg (test code = 3368892599) LVOT peak VTI (test code 14.7 cm = 0428991378) LV V1 mean (test code = 51.40 cm/s 8206887877) Ao peak evette (test code = 154.7 cm/s 9078082777) AV area peak evette (test 1.7 cm2 code = 2115364280) Ao max PG (test code = 9.60 mm[Hg] 0050895108) AV peak gradient (test mmHg code = 9555941186) AV regurgitation 257.3 ms pressure 1/2 time (test code = 3123096586) AI dec slope (test code 498.10 cm/s2 = 0363218132) AI max evette (test code = 437.60 cm/s 0963419518) AI max PG (test code = 77.80 mm[Hg] 1646684238) Tapse (test code = 2.19 cm 4364711127) LA Volume Index (BP) 32.0 mL/m2 (test code = 8535751202) LA volume (BP) (test 62.1 mL code = 5567628103) LAV(MOD-sp2) (test code 52.70 mL = 5138651979) A4C EF (test code = 44.80 % 0135884616) EF(sp4-el) (test code = 45.20 % 9292805991) SV(MOD-sp4) (test code = 71.20 mL 5535951096) SV(sp4-el) (test code = 73.90 mL 2181074785) LV Diastolic Volume (BP) 146.3 mL (test code = 5279465504) A2C EF (test code = 52.00 % 7925819064) EF(MOD-bp) (test code = 46.70 % 0027412618) EF(sp2-el) (test code = 52.40 % 7869591140) LV Systolic Volume (BP) 77.9 mL (test code = 3528699456) SV(MOD-bp) (test code = 68.40 mL 1580255145) SV(MOD-sp2) (test code = 69.20 mL 1217474270) EF (test code = 0952537694) Left Ventricular Stroke 68.4 mL Volume by 2-D Biplane-MOD (test code = 9493551) Radiology Study observation (narrative) (test code = 79385-3) LYNDSAY (test code = LYNDSAY) ?Left?Ventricle: Left [...] agent used and saline contrast was performed. [facility]fieldKEPPRA (LEVETIRACETAM)2022-04-14 16:48:36 Test Item Value Reference Range Interpretation Comments KEPPRA (test code = 12-46 L 4578983662) LYNDSAY (test code = LYNDSAY) Therapeutic range: 12-46 ?g/mL ? ?Toxic: Not well established.Test developed and characteristics determined by [facility] Laboratory Services. Lab Interpretation Abnormal (test code = 21575-7) [facility]fieldBasi Metabolic Panel (Na, K, Cl, CO2, Glucose, BUN, Creatinine, Ca)2022-04-14 10:50:11 Test Item Value Reference Range Interpretation Comments NA (test code = 136 mmol/L 135-145 5791624711) K (test code = 3.8 mmol/L 3.5-5 9345151584) CL (test code = 105 mmol/L 98-108 4029029939) CO2 TOTAL (test code = 25 mmol/L 23-31 6485976399) AGAP (test code = 2-16 9660561829) BUN (test code = 9 mg/dL 7-23 4326670721) GLUCOSE (test code = 101 mg/dL 70-110 4104985627) CREATININE (test code = 0.66 mg/dL 0.5-1.04 8799246514) CALCIUM (test code = 8.1 mg/dL 8.6-10.6 L 0338985148) eGFR (test code = mL/min/1.73m2 0764998252) LYNDSAY (test code = LYNDSAY) Association of [...] tests). Lab Interpretation Abnormal (test code = 84536-4) [id number] 10:50:11 Test Item Value Reference Range Interpretation Comments MAGNESIUM (test code = [id number]) 1.9 mg/dL 1.7-2.4 Lab Interpretation (test code = Normal 14426-4) [facility] [id number] 22:21:44 Test Item Value Reference Range Interpretation Comments TSH (test code = See_Comment Biotin has been [id number]) reported to cau se a negative bias, interpret resul ts relative to autumn garcia's use of biotin. [Automated mess age] The system [employer] generated this result transmitted ref erence range: 0.45 - 4 .70 mIU/L. The refe rence range was not u sed to interpret this result as normal/abnor mal. Lab Interpretation (test Normal code = 24829-3) [facility] (A1C)2022-04-13 21:53:43 Test Item Value Reference Range Interpretation Comments HGB A1C (test code = 5.8 % 4-5.7 H 4548-4) LYNDSAY (test code = LYNDSAY) Reference RangesNormal: <5.7%Prediabetes: 5.7 - 6.4%Diabetes: > 6.5% Lab Interpretation (test Abnormal code = 03824-7) [facility] (83817)(TOTAL CHOLESTEROL, TRIGLYCERIDES, HDL)2022-04-13 21:34:53 Test Item Value Reference Range Interpretation Comments CHOL (test code = 201 mg/dL 120-200 H 8052185788) HDL (test code = 56 mg/dL See_Comment [Automated message] 4608438389) The system [employer] generated this result transmit sherice reference range : >=50. The refer ence range was not u sed to interpret th is result as normal/abnormal . HDLC RATIO (test code = See_Comment [Au tomated message] 2639348219) The system [employer] generated this result transmit sherice reference range : <=4.5. The refe rence range was not u sed to interpret th is result as normal/abnormal . TRIG (test code = 355 mg/dL 30-170 H 3992227766) LDL CHOL (test code = 74 mg/dL See_Comment [Auto mated message] 27128-5) The system [employer] generated this result transmit sherice reference range : <=160. The refe rence range was not u sed to interpret th is result as normal/abnormal . VLDL (test code = 71 mg/dL 5-60 H 6183895523) Lab Interpretation (test Abnormal code = 72466-8) [facility] - Code [id number] 18:46:27 Test Item Value Reference Interpretation Comments Range TROPONIN I (test 0.013 ng/mL See_Comment [Automated code = 2971723932) message] The system which generated this result [...] biotin. Lab Interpretation Normal (test code = 19616-2) [facility] (NA, K, CL, CO2, Glucose, BUN, Creatinine, CA) - Code [id number] 18:35:07 Test Item Value Reference Range Interpretation Comments NA (test code = 136 mmol/L 135-145 3913661033) K (test code = 4.3 mmol/L 3.5-5 6640668722) CL (test code = 105 mmol/L 98-108 3202197086) CO2 TOTAL (test code = 27 mmol/L 23-31 7429236883) AGAP (test code = 2-16 8642958908) BUN (test code = 8 mg/dL 7-23 5088278886) GLUCOSE (test code = 130 mg/dL 70-110 H 5596698247) CREATININE (test code = 0.75 mg/dL 0.5-1.04 9753172795) CALCIUM (test code = 8.5 mg/dL 8.6-10.6 L 0794019192) eGFR (test code = mL/min/1.73m2 7103691443) LYNDSAY (test code = LYNDSAY) Association of [...] tests). Lab Interpretation Abnormal (test code = 93009-1) [facility] - Code [id number] 18:32:46 Test Item Value Reference Range Interpretation Comments APTT Patient (test See_Comment [Automat ed code = 3173-2) message] The system which generated this result transmitted reference range : 23 - 38 Seconds . The reference range was not used to interpr et this result as normal/abnormal . LYNDSAY (test code = LYNDSAY) The [facility] patient population mean normal value for aPTT is 30 seconds. Lab Interpretation Normal (test code = 97182-1) [facility] Time / INR - Code [id number] 18:30:45 Test Item Value Reference Range Interpretation [...] tions. Lab Interpretation (test Normal code = 00613-9) [facility] without Diff - Code [id number] 18:23:07 Test Item Value Reference Range Interpretation Comments WBC (test code = 6690-2) See_Comment [A utomated message] The system [employer] generated this result transmit sherice reference range : 4.30 - 11.10 10*3/?L. The reference range was not used to interpret this result as normal/abnormal . RBC (test code = 789-8) See_Comment [Au tomated message] The system [employer] generated this result transmit sherice reference range [...] See_Comment H [Au tomated message] The system [employer] generated this result transmit sherice reference range : 166 - 358 10*3/?L. The reference range was not used to interpret this result as normal/abnormal . MPV (test code = 8.1 fL 9.5-12.9 L 98377-7) RDW-CV (test code = 16.1 % 12-15.5 H 788-0) RDW-SD (test code = 49.2 fL 39-49.9 51954-9) NRBC x10^3 (test code = See_Comment [Au tomated message] 0928238683) The system [employer] generated this result transmit sherice reference range : 10*3/?L. The reference range was not used to interpret this result as normal/abnormal . NRBC/100 WBC (test code See_Comment [Au tomated message] = 3868402427) The system [facility] generated this result transmit sherice reference range : 0.0 - 10.0 /100 WBC s. The reference r zoe was not used to interpret this result as normal/abnormal . IPF % (test code = 3191567021) Lab Interpretation (test Abnormal code = 02341-1) [facility] [id number] 21:06:40 Test Item Value Reference Interpretation Comments Range TROPONIN I (test 0.005 ng/mL See_Comment [Automated code = 7899312380) message] The system which generated this result [...] biotin. Lab Interpretation Normal (test code = 49641-1) [facility] MET[facility]OLIC PANEL (93857)2021-11-23 20:55:42 Test Item Value Reference Range Interpretation Comments NA (test code = 137 mmol/L 135-145 5516513485) K (test code = 4.3 mmol/L 3.5-5.0 4908125948) CL (test code = 104 mmol/L 98-108 5724377023) CO2 TOTAL (test code = 22 mmol/L 23-31 L 4243121894) AGAP (test code = 2-16 9484180069) BUN (test code = 15 mg/dL 7-23 0116727733) GLUCOSE (test code = 114 mg/dL 70-110 H 8376726982) CREATININE (test code = 0.68 mg/dL 0.50-1.04 7238783119) TOTAL BILI (test code = 0.5 mg/dL 0.1-1.5 4627563868) CALCIUM (test code = 9.1 mg/dL 8.6-10.6 6543481620) T PROTEIN (test code = 7.3 g/dL 6.3-8.2 9618351936) ALBUMIN (test code = 4.4 g/dL 3.5-5.0 9994061898) ALK PHOS (test code = 243 U/L 34-122 H 1137349399) ALTv (test code = 24 U/L 5-35 1742-6) AST(SGOT) (test code = 30 U/L 13-40 7786926912) eGFR (test code = mL/min/1.73m2 7195078579) LYNDSAY (test code = LYNDSAY) Association of [...] tests). Lab Interpretation Abnormal (test code = 36135-3) [facility] 20:55:22 Test Item Value Reference Range Interpretation Comments LIPASE (test code = 8108369665) 96 U/L 0-220 Lab Interpretation (test code = Normal 33768-9) [facility] [id number] 20:46:00 Test Item Value Reference Range Interpretation Comments POCT PREG (test code = 1605) negative On board controls acceptable with present C Line (test code = 3574) POCT PREG LOT # (test code = 3575) [id number] POCT PREG TEST DATE (test 04/18/2023 code = 3576) Lab Interpretation (test code = Normal 87879-2) [facility] WITH [id number] 20:40:38 Test Item Value Reference Range Interpretation [...] (test code = 53.7 fL 39.0-49.9 H 89296-9) RDW-CV (test code = 17.2 % 12.0-15.5 H 788-0) PLT (test code = See_Comment H [Automated 777-3) message] The sy stem which generated this result transmitted reference range : 166 - 358 10*3/ ?L. The reference r zoe was not used to interpret this result as normal/abnormal . MPV (test code = 8.5 fL 9.5-12.9 L 10337-7) NRBC/100 WBC (test See_Comment [Automat ed code = 0089058241) message] The system which generated this result transmitted reference range : 0.0 - 10.0 /100 WBCs. The refer ence range was not u sed to interpret th is result as normal/abnormal . NRBC x10^3 (test code <0.01 See_Comment [Auto mated = 4580652606) message] The s ystem which generated this result transmitted reference range : 10*3/?L. The reference range was not used to interpret this result as normal/abnormal . GRAN MAT (NEUT) % 53.7 % (test code = 770-8) IMM GRAN % (test code 0.90 % = 2165646597) LYMPH % (test code = 32.6 % 736-9) MONO % (test code = 10.1 % 5905-5) EOS % (test code = 1.5 % 713-8) BASO % (test code = 1.2 % 706-2) GRAN MAT x10^3(ANC) 4.98 10*3/uL 1.88-7.09 (test code = 4821862606) IMM GRAN x10^3 (test 0.08 10*3/uL 0.00-0.06 H code = 8617773071) LYMPH x10^3 (test code 3.02 10*3/uL 1.32-3.29 = 731-0) MONO x10^3 (test code 0.94 10*3/uL 0.33-0.92 H = 742-7) EOS x10^3 (test code = 0.14 10*3/uL 0.03-0.39 711-2) BASO x10^3 (test code 0.11 10*3/uL 0.01-0.07 H = 704-7) Lab Interpretation Abnormal (test code = 89422-7) [facility] (AUTOMATED)2021-11-23 20:17:33 Test Item Value Reference Range Interpretation Comments POCT GLU (test code = 111 mg/dL 70-110 H Notifi ed Provider [id number]) Lab Interpretation (test Abnormal code = 25276-8) [facility]PA TEST, THINPREP, [id number] 00:00:00 Test Item Value Reference Range Interpretation Comments SOURCE: (test code = Endocervical 8001) SLIDES: (test code = 1 8011) LMP: (test code = 8021) 06/03/2021 SPECIMEN ADEQUACY: (test (NOTE) code = 04515) INTERPRETATION: (test ASCUS/EPITH. code = 14284) ABNORMALITY; SEE BELOW CHARGE MASTER COORDINATOR: (test Anusha code = 8101) CHANA Sepulveda(ASCP)[facility] PATHOLOGIST Nahid Russell, INTERPRETATION BY: (test M.D. code = 8122) LOCATION: (test code = (NOTE) 37717) CPT: (test code = 8140) (NOTE) PAP TEST, THINPREP, [id number] 00:00:00 Test Item Value Reference Range Interpretation Comments SOURCE: (test code = Endocervical 8001) SLIDES: (test code = 1 8011) LMP: (test code = 8021) 06/03/2021 SPECIMEN ADEQUACY: (test (NOTE) code = 68960) INTERPRETATION: (test ASCUS/EPITH. code = 30307) ABNORMALITY; SEE BELOW CHARGE MASTER COORDINATOR: (test Anusha code = 8101) CHANA Sepulveda(ASCP)[facility] PATHOLOGIST Nahid Russell, INTERPRETATION BY: (test M.D. code = 8122) LOCATION: (test code = (NOTE) 62332) CPT: (test code = 8140) (NOTE) PAP TEST, THINPREP, [id number] 00:00:00 Test Item Value Reference Range Interpretation Comments SOURCE: (test code = Endocervical 800) SLIDES: (test code = 1 801) LMP: (test code = 8021) 06/03/2021 SPECIMEN ADEQUACY: (test (NOTE) code = 57189) INTERPRETATION: (test ASCUS/EPITH. code = 03038) ABNORMALITY; SEE BELOW CHARGE MASTER COORDINATOR: (test Anusha code = 8101) CHANA Sepulveda(ASCP)[facility] PATHOLOGIST Nahid Russell, INTERPRETATION BY: (test M.D. code = 8122) LOCATION: (test code = (NOTE) 53046) CPT: (test code = 8140) (NOTE) PAP TEST, THINPREP, [id number] 00:00:00 Test Item Value Reference Range Interpretation Comments SOURCE: (test code = Endocervical 8001) SLIDES: (test code = 1 8011) LMP: (test code = 8021) 06/03/2021 SPECIMEN ADEQUACY: (test (NOTE) code = 80227) INTERPRETATION: (test ASCUS/EPITH. code = 98495) ABNORMALITY; SEE BELOW CHARGE MASTER COORDINATOR: (test Anusha code = 8101) CHANA Sepulveda(ASCP)[facility] PATHOLOGIST Nahid Russell, INTERPRETATION BY: (test M.D. code = 8122) LOCATION: (test code = (NOTE) 22655) CPT: (test code = 8140) (NOTE) HPV HIGH RISK WITH GENOTYPE, [id number] 00:00:00 Test Item Value Reference Range Interpretation Comments HPV HIGH RISK INTERP (test code = POSITIVE 03682) HPV 16 (test code = 30341) POSITIVE HPV 18 (test code = 94764) NEGATIVE HPV, HR, OTHER GENOTYPES (test code POSITIVE = 79039) HPV HIGH RISK WITH GENOTYPE, [id number] 00:00:00 Test Item Value Reference Range Interpretation Comments HPV HIGH RISK INTERP (test code = POSITIVE 39712) HPV 16 (test code = 37129) POSITIVE HPV 18 (test code = 00834) NEGATIVE HPV, HR, OTHER GENOTYPES (test code POSITIVE = 61216) HPV HIGH RISK WITH GENOTYPE, [id number] 00:00:00 Test Item Value Reference Range Interpretation Comments HPV HIGH RISK INTERP (test code = POSITIVE 37374) HPV 16 (test code = 52512) POSITIVE HPV 18 (test code = 38051) NEGATIVE HPV, HR, OTHER GENOTYPES (test code POSITIVE = 91210) HPV HIGH RISK WITH GENOTYPE, [id number] 00:00:00 Test Item Value Reference Range Interpretation Comments HPV HIGH RISK INTERP (test code = POSITIVE 78953) HPV 16 (test code = 07468) POSITIVE HPV 18 (test code = 06302) NEGATIVE HPV, HR, OTHER GENOTYPES (test code POSITIVE = 78010) [id number] 03:22:48 Test Item Value Reference Range Interpretation Comments APPEARANCE (test code = Hazy Clear A 1579383037) COLOR (test code = Yellow Yellow 5931539256) PH (test code = 4.8-8.0 9733982953) SP GRAVITY (test code = 1.003-1.030 1458466078) GLU U QUAL (test code = Normal Normal 4454396889) BLOOD (test code = Negative Negative Interfere nce from 3020852699) ascorbic acid m ay cause false neg ative results. KETONES (test code = 5 mg/dL Negative A 6694785271) PROTEIN (test code = Negative Negative 2887-8) UROBILIN (test code = 4.0 mg/dL Normal A 4265303598) BILIRUBIN (test code = Negative Negative 0199512177) NITRITE (test code = Negative Negative 2576493837) LEUK GRUPO (test code = Negative Negative 7103269846) RBC/HPF (test code = See_Comment [Autom ated message] 2095337462) The system [employer] generated this result transmitted ref erence range: 0 - 3 HP F. The reference range was not used to int erpret this result as normal/abnormal . WBC/HPF (test code = <1 See_Comment [Autom ated message] 2099371118) The system [employer] generated this result transmitted ref erence range: 0 - 5 HP F. The reference range was not used to int erpret this result as normal/abnormal . BACTERIA (test code = Few Negative A 3567114486) SQ EPITH (test code = HPF 2040816996) Lab Interpretation Abnormal (test code = 81420-3) [facility] 03:22:48 Test Item Value Reference Range Interpretation Comments APPEARANCE (test code = Hazy Clear A 0692163773) COLOR (test code = Yellow Yellow 5315898119) PH (test code = 4.8-8.0 4395568629) SP GRAVITY (test code = 1.003-1.030 5814462086) GLU U QUAL (test code = Normal Normal 4220247502) BLOOD (test code = Negative Negative 1915708633) KETONES (test code = 5 mg/dL Negative A 8230923883) PROTEIN (test code = Negative Negative 2887-8) UROBILIN (test code = 4.0 mg/dL Normal A 8584329718) BILIRUBIN (test code = Negative Negative 3174149061) NITRITE (test code = Negative Negative 7624963775) LEUK GRUPO (test code = Negative Negative 1340222873) RBC/HPF (test code = See_Comment [Autom ated message] 9791368525) The system [employer] generated this result transmit sherice reference range : 0 - 3 HPF. The refe rence range was not u sed to interpret th is result as normal/abnormal . WBC/HPF (test code = <1 See_Comment [Autom ated message] 5766157856) The system [employer] generated this result transmit sherice reference range : 0 - 5 HPF. The refe rence range was not u sed to interpret th is result as normal/abnormal . BACTERIA (test code = Few Negative A 3185208092) SQ EPITH (test code = HPF 8531848643) Lab Interpretation (test Abnormal code = 40759-1) [facility] [id number] 02:45:00 Test Item Value Reference Interpretation Comments Range TROPONIN I (test 0.002 ng/mL See_Comment [Automated code = 4905782581) message] The system which generated this result [...] biotin. Lab Interpretation Normal (test code = 88516-4) [facility] [id number] 02:45:00 Test Item Value Reference Range Interpretation Comments TROPONIN I (test code = 0.002 ng/mL See_Comment [Au tomated 1610785068) message] The sy stem which generated this result transmitted reference range : <=0.034. The reference range was not used to interpret this result as normal/abnormal . LYNDSAY (test code = LYNDSAY) Lab Interpretation Normal (test code = 86541-0) [facility] [id number] 02:41:57 Test Item Value Reference Range Interpretation Comments NT-proBNP (test code 169 pg/mL See_Comment H [Autom ated = 8516782514) message] The system which generated this result transmitted reference range : <=125. The reference range was not used to interpret this result as normal/abnormal . LYNDSAY (test code = LYNDSAY) Biotin has been reported to cause a negative bias, interpret results relative to patient's use of biotin. Lab Interpretation Abnormal (test code = 10927-7) [facility] [id number] 02:41:57 Test Item Value Reference Range Interpretation Comments NT-proBNP (test code = 169 pg/mL See_Comment H [Aut omated message] 0943649282) The system [employer] generated this result transmit sherice reference range : <=125. The refe rence range was not u sed to interpret th is result as normal/abnormal . LYNDSAY (test code = LYNDSAY) Lab Interpretation (test Abnormal code = 83883-4) [facility]OLIC PANEL (23306)2021-03-17 02:09:13 Test Item Value Reference Range Interpretation Comments NA (test code = 137 mmol/L 135-145 2184623273) K (test code = 4.2 mmol/L 3.5-5.0 4866210273) CL (test code = 102 mmol/L 98-108 0080512006) CO2 TOTAL (test code = 25 mmol/L 23-31 1202875958) AGAP (test code = 2-16 3906174205) BUN (test code = 18 mg/dL 7-23 7641143091) GLUCOSE (test code = 144 mg/dL 70-110 H 5152432884) CREATININE (test code = 0.77 mg/dL 0.50-1.04 7688674431) TOTAL BILI (test code = 0.4 mg/dL 0.1-1.2 4015307377) CALCIUM (test code = 8.9 mg/dL 8.6-10.6 9801626120) T PROTEIN (test code = 6.8 g/dL 6.3-8.2 1705978384) ALBUMIN (test code = 3.9 g/dL 3.5-5.0 5886226888) ALK PHOS (test code = 84 U/L 34-122 8974290091) ALTv (test code = 13 U/L 5-35 1742-6) AST(SGOT) (test code = 17 U/L 13-40 8235895940) eGFR (test code = mL/min/1.73m2 3674461332) LYNDSAY (test code = LYNDSAY) Association of [...] tests). Lab Interpretation Abnormal (test code = 94025-8) [facility]. METABOLIC PANEL (49880)2021-03-17 02:09:13 Test Item Value Reference Range Interpretation Comments NA (test code = 6291234791) 137 mmol/L 135-145 K (test code = 1498818679) 4.2 mmol/L 3.5-5.0 CL (test code = 0088126968) 102 mmol/L 98-108 CO2 TOTAL (test code = 7630071697) 25 mmol/L 23-31 AGAP (test code = 1646525300) 2-16 BUN (test code = 8940558906) 18 mg/dL 7-23 GLUCOSE (test code = 0123716233) 144 mg/dL 70-110 H CREATININE (test code = 0.77 mg/dL 0.50-1.04 8854940584) TOTAL BILI (test code = 0.4 mg/dL 0.1-1.8 7726310702) CALCIUM (test code = 0888235331) 8.9 mg/dL 8.6-10.6 T PROTEIN (test code = 3131622346) 6.8 g/dL 6.3-8.2 ALBUMIN (test code = 6602193197) 3.9 g/dL 3.5-5.0 ALK PHOS (test code = 6871481463) 84 U/L 34-122 ALTv (test code = 1742-6) 13 U/L 5-35 AST(SGOT) (test code = 5845134674) 17 U/L 13-40 eGFR (test code = 8417307022) mL/min/1.73m2 LYNDSAY (test code = LYNDSAY) Lab Interpretation (test code = Abnormal 68640-8) [facility] WITH [id number] 01:56:33 Test Item Value Reference Range Interpretation Comments WBC (test code = See_Comment H [Automated 3890-2) message] The sy stem which generated this result transmitted reference range : 4.30 - 11.10 10*3/?L. The reference range was not used to interpret this result as normal/abnormal . RBC (test code = See_Comment [Automated 989-8) message] The sy stem which generated this [...] (test code = 55.5 fL 39.0-49.9 H 96914-3) RDW-CV (test code = 18.9 % 12.0-15.5 H 788-0) PLT (test code = See_Comment H [Automated 777-3) message] The sy stem which generated this result transmitted reference range : 166 - 358 10*3/ ?L. The reference r zoe was not used to interpret this result as normal/abnormal . MPV (test code = 8.2 fL 9.5-12.9 L 00637-2) NRBC/100 WBC (test See_Comment [Automat ed code = 7084995573) message] The system which generated this result transmitted reference range : 0.0 - 10.0 /100 WBCs. The refer ence range was not u sed to interpret th is result as normal/abnormal . NRBC x10^3 (test code <0.01 See_Comment [Auto mated = 6552867320) message] The s ystem which generated this result transmitted reference range : 10*3/?L. The reference range was not used to interpret this result as normal/abnormal . GRAN MAT (NEUT) % 61.7 % (test code = 770-8) IMM GRAN % (test code 0.80 % = 4852291012) LYMPH % (test code = 28.5 % 736-9) MONO % (test code = 6.3 % 5905-5) EOS % (test code = 1.8 % 713-8) BASO % (test code = 0.9 % 706-2) GRAN MAT x10^3(ANC) 7.31 10*3/uL 1.88-7.09 H (test code = 0453381268) IMM GRAN x10^3 (test 0.09 10*3/uL 0.00-0.06 H code = 5043618438) LYMPH x10^3 (test code 3.38 10*3/uL 1.32-3.29 H = 731-0) MONO x10^3 (test code 0.75 10*3/uL 0.33-0.92 = 742-7) EOS x10^3 (test code = 0.21 10*3/uL 0.03-0.39 711-2) BASO x10^3 (test code 0.11 10*3/uL 0.01-0.07 H = 704-7) Lab Interpretation Abnormal (test code = 17602-5) [facility] WITH [id number] 01:56:33 Test Item Value Reference Range Interpretation [...] (test code = 55.5 fL 39.0-49.9 H 33991-4) RDW-CV (test code = 18.9 % 12.0-15.5 H 788-0) PLT (test code = See_Comment H [Automated 777-3) message] The sy stem which generated this result transmitted reference range : 166 - 358 10*3/ ?L. The reference r zoe was not used to interpret this result as normal/abnormal . MPV (test code = 8.2 fL 9.5-12.9 L 74053-5) NRBC/100 WBC (test See_Comment [Automat ed code = 6261432186) message] The system which generated this result transmitted reference range : 0.0 - 10.0 /100 WBCs. The refer ence range was not u sed to interpret th is result as normal/abnormal . NRBC x10^3 (test code <0.01 See_Comment [Auto mated = 1759906570) message] The s ystem which generated this result transmitted reference range : 10*3/?L. The reference range was not used to interpret this result as normal/abnormal . GRAN MAT (NEUT) % 61.7 % (test code = 770-8) IMM GRAN % (test code 0.80 % = 4753764809) LYMPH % (test code = 28.5 % 736-9) MONO % (test code = 6.3 % 5905-5) EOS % (test code = 1.8 % 713-8) BASO % (test code = 0.9 % 706-2) GRAN MAT x10^3(ANC) 7.31 10*3/uL 1.88-7.09 H (test code = 5402991214) IMM GRAN x10^3 (test 0.09 10*3/uL 0.00-0.06 H code = 4211437638) LYMPH x10^3 (test code 3.38 10*3/uL 1.32-3.29 H = 731-0) MONO x10^3 (test code 0.75 10*3/uL 0.33-0.92 = 742-7) EOS x10^3 (test code = 0.21 10*3/uL 0.03-0.39 711-2) BASO x10^3 (test code 0.11 10*3/uL 0.01-0.07 H = 704-7) Lab Interpretation Abnormal (test code = 25617-6) [facility] RAPID [facility]2021-03-17 01:38:12 Test Item Value Reference Range Interpretation Comments SARS-CoV-2 Rapid ID NOW Not Detected Not Detected (test code = 88487-6) LYNDSAY (test code = LYNDSAY) ID NOW COVID-19 Assay is an isothermal nucleic acid amplification test intended for the qualitative detection of nucleic acid from SARS-CoV-2 viral RNA in nasopharyngeal (DIGITAL PRODUCTION ARTIST) specimens. It is used under Emergency Use [...] indicated. Lab Interpretation Normal (test code = 24021-9) [facility] NOW RAPID TESTING)2021-03-17 01:38:12 Test Item Value Reference Range Interpretation Comments SARS-CoV-2 Rapid ID NOW (test Not Detected Not Detected code = 49481-9) LYNDSAY (test code = LYNDSAY) Lab Interpretation (test code = Normal 27472-0) [facility]21-[facility]-19 17:42:45 Test Item Value Reference Range Interpretation Comments SARS-CoV-2 Rapid ID NOW Not Detected Not Detected (test code = 50948-6) LYNDSAY (test code = LYNDSAY) ID NOW COVID-19 Assay is an isothermal nucleic acid amplification test intended for the qualitative detection of nucleic acid from SARS-CoV-2 viral RNA in nasopharyngeal (DIGITAL PRODUCTION ARTIST) specimens. It is used under Emergency Use [...] indicated. Lab Interpretation Normal (test code = 01258-1) [facility] ABDOMEN PELVIS W [id number] 17:24:55Thickening of the gastric antrum and duodenal [...] of the left adrenal gland.RL: [id number] [facility]field[facility]inalysis2021-08-03 17:03:40 Test Item Value Reference Range Interpretation Comments APPEARANCE (test code = Hazy Clear A 5670213857) COLOR (test code = Mabel Yellow A 3083331215) PH (test code = 4.8-8.0 8851725831) SP GRAVITY (test code = 1.003-1.030 H 5043283866) GLU U QUAL (test code = Normal Normal 1597720695) BLOOD (test code = Negative Negative 6951889889) KETONES (test code = 5 mg/dL Negative A 8403512965) PROTEIN (test code = 30 mg/dL Negative A 2887-8) UROBILIN (test code = 4.0 mg/dL Normal A 8596220371) BILIRUBIN (test code = 4 mg/dL Negative A 3508151578) NITRITE (test code = Negative Negative 6219408969) LEUK GRUPO (test code = Negative Negative 5599662834) RBC/HPF (test code = See_Comment H [Autom ated message] 5718725283) The system [employer] generated this result transmit sherice reference range : 0 - 3 HPF. The refe rence range was not u sed to interpret th is result as normal/abnormal . WBC/HPF (test code = See_Comment H [Autom ated message] [id number]) The system [employer] generated this result transmit hserice reference range : 0 - 5 HPF. The refe rence range was not u sed to interpret th is result as normal/abnormal . BACTERIA (test code = Few Negative A 8112853153) MUCOUS (test code = Moderate Negative LPF A 6700180488) SQ EPITH (test code = HPF 4112116272) CA OXALATE (test code = See_Comment H [Au tomated message] [id number]) The system [employer] generated this result transmit sherice reference range : <=1 HPF. The refere nce range was not u sed to interpret th is result as normal/abnormal . Ictotest (test code = Negative 5949031335) Lab Interpretation (test Abnormal code = 12320-0) [facility] [id number] 16:34:55 Test Item Value Reference Range Interpretation Comments NA (test code = 139 mmol/L 135-145 8969145265) K (test code = 4.3 mmol/L 3.5-5.0 5740043067) CL (test code = 105 mmol/L 98-108 6967460705) CO2 TOTAL (test code 26 mmol/L 23-31 = 6103013756) AGAP (test code = 2-16 9948403380) BUN (test code = 11 mg/dL 7-23 3230595632) GLUCOSE (test code = 95 mg/dL 70-110 5497543418) CREATININE (test code 0.70 mg/dL 0.50-1.04 = 4359701471) TOTAL BILI (test code 0.6 mg/dL 0.1-1.1 = 7552887354) CALCIUM (test code = 8.9 mg/dL 8.6-10.6 4651490830) T PROTEIN (test code 7.7 g/dL 6.3-8.2 = 9925379028) ALBUMIN (test code = 4.1 g/dL 3.5-5.0 3510835599) ALK PHOS (test code = 79 U/L 34-122 1680113310) ALTv (test code = 10 U/L 5-35 1742-6) AST(SGOT) (test code 22 U/L 13-40 = 5880891090) eGFR (test code = mL/min/1.73m2 7994228548) LYNDSAY (test code = LYNDSAY) Association of [...] urine or abnormalities in imaging tests). [facility], [id number] 16:34:14 Test Item Value Reference Range Interpretation Comments LIPASE (test code = 1232386674) 45 U/L 0-220 Lab Interpretation (test code = Normal 78442-0) [facility] with [id number] 16:21:12 Test Item Value Reference Range Interpretation Comments WBC (test code = See_Comment [Automated 7590-2) message] The sy stem which generated this [...] (test code = 54.4 fL 39.0-49.9 H 03660-4) RDW-CV (test code = 18.3 % 12.0-15.5 H 788-0) PLT (test code = See_Comment H [Automated 777-3) message] The sy stem which generated this result transmitted reference range : 166 - 358 10*3/ ?L. The reference r zoe was not used to interpret this result as normal/abnormal . MPV (test code = 8.5 fL 9.5-12.9 L 20897-3) NRBC/100 WBC (test See_Comment [Automat ed code = 2013723186) message] The system which generated this result transmitted reference range : 0.0 - 10.0 /100 WBCs. The refer ence range was not u sed to interpret th is result as normal/abnormal . NRBC x10^3 (test code <0.01 See_Comment [Auto mated = 4048797742) message] The s ystem which generated this result transmitted reference range : 10*3/?L. The reference range was not used to interpret this result as normal/abnormal . GRAN MAT (NEUT) % 78.3 % (test code = 770-8) IMM GRAN % (test code 0.40 % = 4178188077) LYMPH % (test code = 15.4 % 736-9) MONO % (test code = 4.8 % 5905-5) EOS % (test code = 0.1 % 713-8) BASO % (test code = 1.0 % 706-2) GRAN MAT x10^3(ANC) 7.15 10*3/uL 1.88-7.09 H (test code = 3502295762) IMM GRAN x10^3 (test 0.04 10*3/uL 0.00-0.06 code = 8431287026) LYMPH x10^3 (test code 1.41 10*3/uL 1.32-3.29 = 731-0) MONO x10^3 (test code 0.44 10*3/uL 0.33-0.92 = 742-7) EOS x10^3 (test code = <0.03 0.03-0.39 L 711-2) BASO x10^3 (test code 0.09 10*3/uL 0.01-0.07 H = 704-7) Lab Interpretation Abnormal (test code = 62380-3) [facility]
[2022-12-01] MEDS ORDERED: levETIRAcetam 500 MG TAB ONE (12:00)
[2022-12-01] MEDS ORDERED: HYDROCODONE/APAP 5/325 MG TAB ONE (12:25)
[2022-12-01 12:42] LABS: Absolute Lymphocytes (CBC) 2.1 K/uL (0.7-4.9); Hematocrit 38.1 % (36.0-45.0); Lymphocytes % 31.4 % (15.3-44.8); MCV 79.7 fL (80-100); MPV 6.5 fL (7.6-11.3); RBC Red Blood Cell Count 4.78 M/uL (3.86-4.86)
--- NOTE | 2022-12-01 12:46 | RAD REPORT ---
EXAM DESCRIPTION: CT - Head Brain Wo Cont - 12/01/2022 12:38 pm CLINICAL HISTORY: SEIZURE Headache, drowsiness COMPARISON: Head angio dated 08/02/2022; Ct Stroke Brain Wo Cont dated 08/02/2022 TECHNIQUE: All CT scans are performed using dose optimization technique as appropriate and may inclu de automated exposure control or mA/KV adjustment according to patient size. FINDINGS: No intracranial hemorrhage, hydrocephalus or extra-axial fluid collection.No areas of brai n edema or evidence of midline shift. The paranasal sinuses and mastoids are clear. The calvarium is intact. IMPRESSION: No acute intracranial abnormality.
[2022-12-01 13:07] LABS: Potassium 3.8 mEq/L (3.5-5.1)
--- NOTE | 2022-12-01 14:01 | EDPHYS ---
Physician Documentation [facility] Name: Heather Coon Age: 52 yrs Sex: Female : 1970 Arrival Date: 12/01/2022 Time: 11:31 Bed 6 Private MD: ED Physician Norbert Fisher HPI: 12/01 14:04 This 52 yrs old Female presents to ER via EMS with complaints of Seizure. ms3 14:04 52-year-old female with past medical history of anxiety, bipolar, cervical cancer, ms3 COPD, congestive heart failure, chronic back and neck pain presents after having a seizure. EMS notes patient had 2 seizures with them lasting approximately 2 minutes. Patient was administered 2 mg of Ativan. Patient states she is off of Keppra and uses marijuana for her seizure control. EMS states patient was caught and lowered to the ground and did not fall.. 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 - Post-menopause jl7 Historical: - Allergies: 11:47 fluoxetine; jl7 11:47 Green Tea; jl7 11:47 Keppra; not an allergy, pt reports continued seizures while taking medication; jl7 - Home Meds: 11:56 None [Active]; jl7 - PMHx: 11:47 Anxiety; Bipolar disorder; Cancer-Cervical; Chronic obstructive lung disease; Chronic jl7 pain; Congestive heart failure; Depression; Diverticulitis; Herniated Back Disc; Hypertension; intestinal mass; Myocardial infarction; pt reports hx of seizures; Spastic Muscles; stroke; - PSHx: 11:47 cervical fusion; Cholecystectomy; foot; Tonsillectomy; jl7 - Immunization history:: Adult Immunizations unknown. - Social history:: Smoking status: Patient reports the use of cigarette tobacco products, smokes one pack cigarettes per day. Patient uses street drugs, marijuana. ROS: 14:04 Constitutional: Negative for fever, and chills. Neck: Negative for injury, pain, and ms3 swelling, Cardiovascular: Negative for chest pain, and palpitations. Respiratory: Negative for shortness of breath, cough, wheezing, and pleuritic chest pain, Abdomen/GI: Negative for abdominal pain, nausea, vomiting, diarrhea, and constipation, MS/Extremity: Negative for injury and deformity, Skin: Negative for injury, rash, and discoloration. 14:04 MS/extremity: Positive for pain, Back pain. 14:04 Neuro: Positive for seizure activity. 14:04 All other systems are negative. Exam: 14:04 Constitutional: This is a well developed, well nourished patient who is awake, alert, ms3 and in no acute distress. Head/Face: Normocephalic, atraumatic. Neck: Trachea midline, no cervical lymphadenopathy. Supple, full range of motion without nuchal rigidity, or vertebral point tenderness. No Meningismus. Chest/axilla: Normal chest wall appearance and motion. Nontender with no deformity. Cardiovascular: Regular rate and rhythm with a normal S1 and S2. No gallops, murmurs, or rubs. Normal PMI, no JVD. No pulse deficits. Respiratory: Lungs have equal breath sounds bilaterally, clear to auscultation and percussion. No rales, rhonchi or wheezes noted. No increased work of breathing, no retractions or nasal flaring. Abdomen/GI: Soft, non-tender, with normal bowel sounds. No distension or tympany. No guarding or rebound. No evidence of tenderness throughout. Back: No spinal tenderness. No costovertebral tenderness. Full range of motion. Skin: Warm, dry with normal turgor. Normal color with no rashes, no lesions, and no evidence of cellulitis. MS/ Extremity: Pulses equal, no cyanosis. Neurovascular intact. Full, normal range of motion. Neuro: Awake and alert, GCS 15, oriented to person, place, time, and situation. Cranial nerves II-XII grossly intact. Motor strength 5/5 in all extremities. Sensory grossly intact. Cerebellar exam normal. Normal gait. Vital Signs: 11:45 BP 125 / 85; Pulse 85; Resp 15; Temp 97.9; Pulse Ox 98% ; Weight 90.72 kg; Height 5 ft. jl7 2 in. ; Pain 8/10; 12:00 BP 105 / 58; Pulse 80; Resp 15; Pulse Ox 98% ; jl7 12:18 BP 121 / 72; Pulse 90; Resp 22; Pulse Ox 99% ; jl7 12:30 BP 102 / 62; Pulse 80; Resp 18; Pulse Ox 95% on R/A; jl7 11:45 Body Mass Index 36.58 (90.72 kg, 157.48 cm) [facility] 11:45 Pain Scale: Adult jl7 Nicole Coma Score: 11:47 Eye Response: spontaneous(4). Motor Response: obeys commands(6). Verbal Response: jl7 oriented(5). Total: 15. MDM: 11:40 Patient medically screened. ms3 11:48 ED course: Patient states she stopped taking Keppra as she was still having seizures ms3 and Marijuana cut her seizures in half. Discussed PO Keppra with patient and she agrees to take Keppra.. 14:01 ED course: Patient declines [place] at this time. Discussed pain treatment options with ms3 patient. Patient states, "I do not know what kind of addict you were in the past or what drugs you used. Patient states, "I feel you are horrible doctor." Patient states the only pain medication that works for her type of pain is morphine. Patient states she would like to be discharged at this time.. 14:04 Differential diagnosis: drug overdose, seizure. Data reviewed: vital signs, nurses ms3 notes, and as a result, I will discharge patient. Data reviewed: lab test result(s), radiologic studies. I considered the following discharge prescriptions or medication management in the emergency department Medications were administered in the Emergency Department. See MAR. Historians other than the Patient: EMS: [facility]. Counseling: I had a detailed discussion with the patient and/or guardian regarding: the historical points, exam findings, and any diagnostic results supporting the discharge/admit diagnosis, lab results, radiology results, the need for outpatient follow up, to return to the emergency department if symptoms worsen or persist or if there are any questions or concerns that arise at home. Special discussion: I discussed with the patient/guardian in detail that at this point there is no indication for admission to the hospital. It is understood, however, that if the symptoms persist or worsen the patient needs to return immediately for re-evaluation. 12/01 12:22 Order name: CBC with Diff; Complete Time: 13:17 ms3 12/01 12:22 Order name: BMP; Complete Time: 13:17 ms3 12/01 12:37 Order name: Head Brain Wo Cont; Complete Time: 13:17 EDMS Administered Medications: 11:56 Drug: Keppra PO 1000 mg Route: PO; jl7 14:04 Follow up: Response: No adverse reaction jl7 14:03 Not Given (Patient Refused): Ondansetron IVP 4 mg IVP once; over 2 minutes jl7 14:03 Not Given (Patient Refused): Ketorolac IVP 15 mg IVP once jl7 14:04 Not Given (Patient Refused): HYDROcodone-acetaminophen PO 5 mg-325 mg 1 tabs PO once jl7 Disposition Summary: 12/01/22 14:01 Discharge Ordered Location: Home ms3 Condition: Stable ms3 Diagnosis - Other seizures ms3 - Back pain ms3 - Anemia, unspecified ms3 Followup: ms3 - With: Javier Ireland MD - When: 2 - 3 days - Reason: Recheck today's complaints Discharge Instructions: - Discharge Summary Sheet ms3 - Seizure, Adult ms3 Forms: - Medication Reconciliation Form ms3 - Thank You Letter ms3 - Antibiotic Education ms3 - Prescription Opioid Use ms3 Signatures: Dispatcher [employer] EDClint Benjamin RN RN jl7 Norbert Fisher DO DO ms3 Corrections: (The following items were deleted from the chart) 12:37 12:23 Head Brain W Cont+CT.RAD.BRZ ordered. EDMS EDMS 12:38 12:35 Head Brain Wo Cont+CT.RAD.BRZ ordered. EDMS EDMS 20:37 11:48 ED course: Patient states she stopped taking Keppra as she was still having ms3 seizures and Marijuana cut her seizures in half. Discussed PO Keppra with patient and she agrees to take Keppra.. ms3
--- NOTE | 2022-12-01 14:01 | ER ---
Nurse's Notes [facility] Name: Heather Coon Age: 52 yrs Sex: Female : 1970 Arrival Date: 12/01/2022 Time: 11:31 Bed 6 Private MD: Diagnosis: Other seizures;Back pain;Anemia, unspecified Presentation: 12/01 11:45 Chief complaint: EMS states: Toned out to the [facility] for seizure activity, pt jl7 with hx of seizure, stopped taking Keppra 1 year ago, treating seizures with marijuana only and reports seizures have decreased more than 50%. EMS gave 2 mg Ativan IM and seizure activity stopped immediately. Coronavirus screen: At this time, the client does not indicate any symptoms associated with coronavirus-19. Ebola Screen: No symptoms or risks identified at this time. Initial Sepsis Screen: Does the patient meet any 2 criteria? No. Patient's initial sepsis screen is negative. Does the patient have a suspected source of infection? No. Patient's initial sepsis screen is negative. Risk Assessment: Do you want to hurt yourself or someone else? Patient reports no desire to harm self or others. Onset of symptoms was December 01, 2022. Care prior to arrival: Medication(s) given: 2 mg Ativan IM IV initiated. 20 GA, in the right hand, Glucose check: 109. 11:45 Method Of Arrival: EMS: [facility] jl7 11:45 Acuity: ANDER 2 jl7 Triage Assessment: 11:47 General: Appears in no apparent distress. uncomfortable, Behavior is calm, cooperative, jl7 appropriate for age. Pain: Complains of pain in chcronic back and neck pain. Neuro: Level of Consciousness is awake, alert, obeys commands, Oriented to person, place, time, situation. Cardiovascular: Patient's skin is warm and dry. Respiratory: Airway is patent Respiratory effort is even, unlabored, Respiratory pattern is regular, symmetrical. Derm: Skin is pink, warm \\T\\ dry. 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 - Post-menopause jl7 Historical: - Allergies: 11:47 fluoxetine; jl7 11:47 Green Tea; jl7 11:47 Keppra; not an allergy, pt reports continued seizures while taking medication; jl7 - Home Meds: 11:56 None [Active]; jl7 - PMHx: 11:47 Anxiety; Bipolar disorder; Cancer-Cervical; Chronic obstructive lung disease; Chronic jl7 pain; Congestive heart failure; Depression; Diverticulitis; Herniated Back Disc; Hypertension; intestinal mass; Myocardial infarction; pt reports hx of seizures; Spastic Muscles; stroke; - PSHx: 11:47 cervical fusion; Cholecystectomy; foot; Tonsillectomy; jl7 - Immunization history:: Adult Immunizations unknown. - Social history:: Smoking status: Patient reports the use of cigarette tobacco products, smokes one pack cigarettes per day. Patient uses street drugs, marijuana. Screenin:40 [facility] ED Fall Risk Assessment (Adult) History of falling in the last 3 months, jl7 including since admission No falls in past 3 months (0 pts) Confusion or Disorientation No (0 pts) Intoxicated or Sedated No (0 pts) Impaired Gait No (0 pts) Mobility Assist Device Used No (0 pt) Altered Elimination Yes (1 pt) Score/Fall Risk Level 0 - 2 = Low Risk Oriented to surroundings, Maintained a safe environment. 11:40 Abuse screen: Denies threats or abuse. Denies injuries from another. Nutritional jl7 screening: No deficits noted. Tuberculosis screening: No symptoms or risk factors identified. Assessment: 12:15 Reassessment: Pt reports back pain requesting pain medication, ERD notified and order jl7 for [place] 5/325 PO put in. 12:15 Reassessment: Pt requesting pain medication, informed pt that we have to wait for the jl7 CT before I can give her anything PO, pt asked what the ERD ordered, told her it was [place] and pt yelled and refused the [place], stated "If I don't get something for Nausea and either morphine or the other one then I am leaving." States "That doctor is a drug addict." ERD notified and gave order for Zofran and Toradol IVP. On arrival back to ED room pt had removed her IV and reports I'm leaving. Pt and pt's daughter ambulated out of ED with steady gate. 12:25 Reassessment: Pt actively seizing, lasted approximately 30 seconds, HR 97, SPO2 100%, jl7 ERD at bedside. 12:41 Reassessment: Pt returned from CT via stretcher. jl7 Vital Signs: 11:45 BP 125 / 85; Pulse 85; Resp 15; Temp 97.9; Pulse Ox 98% ; Weight 90.72 kg; Height 5 ft. jl7 2 in. ; Pain 8/10; 12:00 BP 105 / 58; Pulse 80; Resp 15; Pulse Ox 98% ; jl7 12:18 BP 121 / 72; Pulse 90; Resp 22; Pulse Ox 99% ; jl7 12:30 BP 102 / 62; Pulse 80; Resp 18; Pulse Ox 95% on R/A; jl7 11:45 Body Mass Index 36.58 (90.72 kg, 157.48 cm) jl7 11:45 Pain Scale: Adult jl7 Nicole Coma Score: 11:47 Eye Response: spontaneous(4). Motor Response: obeys commands(6). Verbal Response: jl7 oriented(5). Total: 15. ED Course: 11:40 Patient arrived in ED. ms3 11:40 Norbert Fisher DO is Attending Physician. ms3 11:43 Clint Patton RN is Primary Nurse. jl7 11:47 Triage completed. jl7 11:47 Arm band placed on right wrist. jl7 12:37 Patient has correct armband on for positive identification. Seizure precautions jl7 initiated. Client placed on continuous cardiac and pulse oximetry monitoring. NIBP monitoring applied. Warm blanket given. 12:37 Initial lab(s) drawn, by me, sent to lab. Maintain EMS IV. Dressing intact. Good blood jl7 return noted. Site clean \\T\\ dry. Gauge \\T\\ site: 20 left hand. 12:40 Head Brain Wo Cont In Process Unspecified. EDMS 14:00 Javier Ireland MD is Referral Physician. ms3 14:00 No provider procedures requiring assistance completed. IV discontinued, intact, jl7 bleeding controlled, patient pulled IV out. Administered Medications: 11:56 Drug: Keppra PO 1000 mg Route: PO; jl7 14:04 Follow up: Response: No adverse reaction jl7 14:03 Not Given (Patient Refused): Ondansetron IVP 4 mg IVP once; over 2 minutes jl7 14:03 Not Given (Patient Refused): Ketorolac IVP 15 mg IVP once jl7 14:04 Not Given (Patient Refused): HYDROcodone-acetaminophen PO 5 mg-325 mg 1 tabs PO once jl7 Medication: 12:25 VIS not applicable for this client. jl7 Outcome: 14:00 Discharged to home ambulatory. jl7 14:00 Condition: stable 14:00 Discharge instructions given to patient, family, Instructed on discharge instructions, follow up and referral plans. medication usage, Demonstrated understanding of instructions, follow-up care, medications. 14:01 Discharge ordered by ms3 14:16 Patient left the ED. jl7 Signatures: Dispatcher [employer] EDClint Benjamin RN RN jl7 Norbert Fisher DO DO ms3 Corrections: (The following items were deleted from the chart) 12:38 11:45 Care prior to arrival: Medication(s) given: 2 mg Ativan IM IV initiated. 20 GA, jl7 in the right forearm, Glucose check: 109 jl7 14:14 12:15 No provider procedures requiring assistance completed. jl7 jl7 14:14 12:15 IV discontinued, intact, bleeding controlled, patient pulled IV out. jl7 jl7
[2022-12-01] MEDS ORDERED: ONDANSETRON 4 MG/2 ML VIAL ONE (14:06)
[2022-12-01 14:29] VITALS: TEMP 97.9
[2022-12-01 14:32] VITALS: BP 102/62; O2SAT 95
== END 2022-12-01 14:16 | disposition home or self-care (01) ==
LOC: ER 11:31
DX: G40.89 Other seizures (principal); M54.9 Dorsalgia, unspecified; D64.9 Anemia, unspecified; I10 Essential (primary) hypertension; I25.2 Old myocardial infarction; Z85.41 Personal history of malignant neoplasm of cervix uteri; Z88.8 Allergy status to other drugs, medicaments and biological substances
CPT/HCPCS: 36415; 70450; 80048; 85025; 99284; J2405

== ENCOUNTER 2022-12-01 17:34 | Emergency (ER) | payer SELFPAY ==
--- OUTSIDE RECORDS SUMMARY | 2022-12-01 17:43 | XMS REPORT | Continuity of Care Document ---
:1970 Author Organization [facility] t Address [address] [facility] [place] [address] Care Team Providers Name Role Phone Aneta Silva Primary Care Physician [phone] RITCHIE WARREN Attending Clinician Unavailable Ritchie Warren [...] Attending Clinician Glory Esteves MD Attending Clinician [phone] Selina Martines MD Attending Clinician Vaccine, [place]ie Pedi Attending Clinician Unavailable Jose Frederick MD Attending Clinician JOSE FREDERICK Attending Clinician Unavailable NICHELLE ALLISON F Attending Clinician Unavailable Ibtroy HEAD CORRECTION OFFICER, Folusho F Attending Clinician Doctor Unassigned, [place] Attending Clinician Unavailable Miky Nava RN Attending [...] Policy Number Effective Date Expiration Date S [facility] [place]END[place] PENDING 2022 00:00:00 Problems Condition Condition Condition Status Onset Resolution Last Treating Co mments Source Name Details Category Date Date Treatment Clinician Date Seizure Seizure Disease [facility] [address] Cardiomyop Cardiomyop Disease Active U nivers athy athy 08-01 ity of 00:00: [address] NSVT NSVT Disease Active Univers (nonsustai [...] 00:00: [place] involving involving 00 Medi kwame iliamna iliamna Branch coronary coronary artery of artery of iliamna iliamna heart heart without without angina angina pectoris [...] 00:00: [place] involving involving 00 Medi kwame iliamna iliamna Branch coronary coronary artery of artery of iliamna iliamna heart heart without without angina angina pectoris [...] spinal 3-11 ity of stenosis stenosis 00:00: [place] 00 Medical Branch Right-side Right-side Disease Active U nivers d low back d low back 3-11 it y of pain with pain with 00:[place] sciatica[place] sci[place], 00 Medi kwame sciatica sciatica Branch laterality laterality unspecifie unspecifie d d Generalize Generalize Disease Active U nivers d anxiety d anxiety 3-11 ity of disorder disorder 00:00: [place] [facility] Agoraphobi Agoraphobi Disease Active U nivers a a 3-11 ity of 00:00: [place] [facility] Bipolar Bipolar Disease Active Univers [...] mass, left 3- it y of 00:00: [place] [facility] Anxiety Anxiety Disease Active Univers 3- ity of 00:00: [place] [facility] Lower back Lower back Disease Active U nivers pain pain 3- ity of 00:00: [place] [facility] High blood High blood Disease Active U nivers pressure pressure 3- ity of 00:00: [place] [facility] COPD COPD Disease Active Univers [...] Stop Date Source Natural mother Alcohol abuse [facility] Natural mother Cancer [facility] Natural mother Diabetes [facility] Natural mother Heart disease [facility] Natural mother Hyperlipidemia [facility] Natural mother Kidney disease [facility] Natural mother Stroke [facility] Paternal uncle Diabetes [facility] Social History Social Habit Start Date Stop Date Quantity Comments Source History SDOH Social Unive rsity of Connections [facility] ical Together Branch History SDOH Social Unive rsity of Connections [facility] Branch History SDOH Social Unive rsity of Connections [place] [facility] Membership Branch History SDOH Social Unive rsity of Connections [place] [facility] Meetings Branch History of tobacco Cigarette Smoker [facility] History SDOH [facility] Alcohol Frequency [facility] History SDOH [facility] Alcohol Std Drinks [facility] History SDOH [facility] Alcohol Binge Medical [address] Exposure to 2022-11-07 2022-11-17 Not sure University of SARS-CoV-2 (event) 00:00:00 17:26:00 [facility] Cigarettes smoked 2022-08-02 2022-08-[address] [facility] [...] Unive rsity of Connections Phone 00:00:00 00:00:00 [facility] edical Branch History SDOH Social 2022-08-01 2022-08-01 5 Unive rsity of Connections Living 00:00:00 00:00:00 [place] [facility] History SDPR 2022-08-01 2022-08-01 0 University o f Physical Activity 00:00:00 00:00:00 [facility] edical DPW Branch History SDOH 2022-08-01 2022-08-01 0 University o f Physical Activity 00:00:00 00:00:00 [facility] edical MPS Branch History SDOH 2022-08-01 2022-08-01 3 University o f Financial 00:00:00 00:00:00 [place] [facility] History SDOH Food 2022-08-01 2022-08-01 1 Univers ity of Worry 00:00:00 00:00:00 [place] [facility] History SDOH Food 2022-08-01 2022-08-01 1 Univers ity of Scarcity 00:00:00 00:00:00 [place] [facility] History SDOH 2022-08-01 2022-08-01 2 University o f Transport Med 00:00:00 00:00:00 [place] Medic al Branch History SDOH 2022-08-01 2022-08-01 2 [place] o f Transport Non-Med 00:00:00 00:00:00 [facility] edical Branch Cigarette 2022-07-31 2022-07-31 University of pack-years 00:00:00 00:00:00 [facility] Education 2022-07-31 2022-07-31 14 [facility] 00:00:00 00:00:00 [facility] Sex Ass[birth year] At [birth year] [facility] 00:00:00 00:00:00 [facility] Smoking Status Start Date Stop Date Source Smokes tobacco daily 2022-08-02 00:00:00 [facility] Medications Ordered Filled Start Stop Current Ordering Indication Dosage Frequency Signature Comments Components Source Medication Medication Date Date Medication? Clinician (SIG) Name Name acetaminoph 2022- No 1{tbl} 1 tablet, Univers en-codeine 11-18 Oral, ity of (TYLENOL 05:30: 05:30 ONCE, 1 [place] #3) 300-30 00 :00 dose, On Medic [...] :00 dose, On Medi kwame mg [facility] 11/17/22 Branch at 2345, MICHAEL morpHINE (2022- No 4mg 4 mg, Slow Univers mg/mL) 11-18 IV Push, ity of injection 4 03:45: 03:38 ONCE, 1 [place] mg 00 :00 dose, On Medical [facility] 11/17/22 Branch at 2245, Routine methocarbam No 1000mg 1,000 mg, Univers oL 11-18 Intravenou ity of (ROBAXIN) 00:30: 23:47 s, ONCE, 1 [place] injection 00 :00 dose, On Medica l 1,000 mg Thu11/17/22 Bran h at 1930, MICHAEL methocarbam Yes [id number] 1000mg Take 2 Univers oL 500 mg [...] 1-13 by mouth ity of 23:49: daily. [place] 34 Medical Branch omega-3 Yes 1g Take 1 g Univer s fatty 1-13 by mouth ity of acids-vitam 23:49: [place]. [place] in E (FISH 34 Medical OIL) 1,000 Branch mg capsule loratadine 0 Yes Take by Univ ers (CLARITIN 1-13 mouth ity of LIQUI-GEL) 23:49: daily. [place] 10 mg 34 Medical capsule Branch ondansetron 2022-0 Yes 4mg Take 4 mg U nivers 4 mg tablet 1-13 by mouth ity of 23:49: every 8 [place] [address] (eight) Medical hours as Branch needed. pantoprazol 3-0 Yes 40mg Take 40 mg Univers e 40 mg EC 1-13 by mouth ity o f tablet 23:49: daily. [address] Branch MULTIVITAMI 0 Yes 1{tbl} Take 1 Tab Univers N ORAL 1-13 by mouth ity of 23:49: daily. [address] Branch omega-3 2022-0 Yes 1g Take 1 g Univer s fatty 1-13 by mouth ity of acids-vitam 23:49: [place]. [place] in [place] (FISH 34 Medical OIL) 1,000 Branch mg capsule loratadine 2022-0 Yes Take by Univ ers (CLARITIN 1-13 mouth ity of LIQUI-GEL) 23:49: daily. [place] 10 mg 34 Medical capsule Branch ondansetron 2022-0 Yes 4mg Take 4 mg U nivers 4 mg tablet 1-13 by mouth ity of 23:49: every 8 [place] [address] (eight) Medical hours as Branch needed. pantoprazol 2022-0 Yes 40mg Take 40 mg Univers e 40 mg EC 1-13 by mouth ity o f tablet 23:49: daily. [address] Branch MULTIVITAMI 2022-0 Yes 1{tbl} Take 1 Tab Univers N ORAL 1-13 by mouth ity of 23:49: daily. [address] Branch omega-3 2022-0 Yes 1g Take 1 g Univer s fatty 1-13 by mouth ity of acids-vitam 23:49: daily. [place] in [place] (FISH 34 Medical OIL) 1,000 Branch mg capsule loratadine 2022-0 Yes Take by Univ ers (CLARITIN 1-13 mouth ity of LIQUI-GEL) 23:49: daily. [place] 10 mg 34 Medical capsule Branch ondansetron 2022-0 Yes 4mg Take 4 mg U nivers 4 mg tablet 1-13 by mouth ity of 23:49: every 8 [place] [address] (eight) Medical hours as Branch needed. pantoprazol 0 Yes 40mg Take 40 mg Univers e 40 mg EC 1-13 by mouth ity o f tablet 23:49: daily. [address] MULTIVITAMI 0 Yes 1{tbl} Take 1 Tab Univers N ORAL 1-13 by mouth ity of 23:49: daily. [address] omega-3 0 Yes 1g Take 1 [...] by mouth ity of 23:49: every 8 [place] [address] (eight) Medical hours as Branch needed. pantoprazol 0 Yes 40mg Take 40 mg Univers e 40 mg EC 1-13 by mouth ity o f tablet 23:49: daily. [address] benzonatate 0 Yes 100mg 100 mg, [...] Shortness of Breath sulfur 2022-0 2022- No [id number] 5mL 5 mL, Unive rs hexafluorid 08-01 Intravenou i ty of e microsphr 17:00: 17:00 s, ONCE, 1 [place] (LUMASON) 00 :00 dose, On Medica l injection 5 Thu Branch mL 08/01/22 at 1100, Routine
geosciences faculty member approving Restricted medication : KYLEE DIEGO pantoprazol [...] First dose [place] mg 00 :35 on [facility] Medical 08/01/22 at Branch 0800, Until Discontinu [...] :00 ONCE, 1 Medical 1,000 dose, On [place] mg/100 mL Fri RTU 08/01/22 at 0045, Administer over 15 Minutes, 100 mL LORazepam 2022-0 Yes 1mg 1 mg, Slow Un lois (ATIVAN) 1-13 IV Push, ity of injection 1 05:52: Q4HPRN, Javier as mg 54 Starting Medical on [facility] Branch 07/31/22 at 2352, Until Discontinu ed, Routine, Seizures, Agitation, Anxiety, ETOH / Cocaine Withdrawl foLIC acid 2022-0 Yes 1mg 1 mg, Univer s (FOLATE) 1-13 Oral, ity of tablet 1 mg 05:45: DAILY, [place] 00 First dose Medical on [facility] 07/31/22 at 2345, Until Discontinu ed, Routine thiamine 2022-0 Yes 100mg 100 mg, Unive rs (VITAMIN 1-13 Oral, ity of B1) tablet 05:45: DAILY, [place] 100 mg 00 First dose Medical on [facility] 07/31/22 at 2345, Until Discontinu ed, Routine LORazepam 2022-0 2023- No .5mg 0.5 mg, Univ ers (ATIVAN) -13 01-13 Slow IV ity of injection 05:30: 05:29 Push, [place] 0.5 mg 00 :00 ONCE, 1 Medical dose, On Branch [facility] 07/31/22 at 2330, MICHAEL atorvastati 2022-0 Yes 40mg 40 mg, Univ ers n (LIPITOR) 1-13 Oral, QHS, it y of tablet 40 03:00: First dose [place] mg 00 on [facility] Medical 07/31/22 at Branch 2100, Until Discontinu ed, Routine diphenhydrA 2022-0 Yes 25mg 25 mg, Univ ers MINE 1-13 Oral, ity of (BENADRYL) 00:32: Q6HPRN, [place] tablet 25 02 Starting Medica l mg on [facility] Branch 07/31/22 at 1832, Until Discontinu [...] Oral, ity of hen (NORCO) 22:01: Q6HPRN, Javeir as 10-325 mg 36 Starting Medica l tablet 1 on [facility] Branch tablet 07/31/22 at 1601, Until Discontinu ed, Routine, Pain (scale 7-10) HYDROcodone 2022-0 2022- No 1{tbl} 1 tablet, Univers -acetaminop 07-31 Oral, ity of hen (NORCO 22:01: 22:00 Q6HPRN, [place] as 5) 5-325 mg 34 :34 Starting Medi kwame tablet 1 on [facility] Branch tablet 07/31/22 at 1601, Until 08/02/22 at 1600, Routine, Pain (scale 4-6) acetaminoph Yes 650mg 650 mg, Un lois en 07-31 Oral, ity of (TYLENOL) 22:01: Q6HPRN, [place] tablet 650 33 Starting Medic al mg on [facility] Branch 07/31/22 at 1601, Until Discontinu [...] 00 :00 dose, On Medi kwame mg [facility] Branch 07/31/22 at 1500, MICHAEL furosemide [...] MICHAEL ipratropium 2022- No 3mL 3 mL, [facility] ers -albuteroL 07-31 Inhalation it y of (DUONEB) 19:30: 18:48 , ONCE, 1 [place] as 0.5 mg-3 00 :00 dose, On Medical mg(2.5 mg Arpita Branch base)/3 mL 07/31/22 at nebulizer 1330, MICHAEL solution 3 mL pantoprazol Yes 40mg Take 40 mg Univers e 40 mg EC 12 by mouth ity o f tablet 17:15: daily. [place] 40 Medical Branch MULTIVITAMI Yes 1{tbl} Take 1 Tab Univers N ORAL -12 by mouth ity of 15:50: daily. [place] 57 Medical Branch loratadine Yes Take by [facility] ers (CLARITIN -12 mouth ity of LIQUI-GEL) 15:50: daily. [place] 10 mg 57 Medical capsule Branch ondansetron Yes 4mg Take 4 mg U nivers 4 mg tablet -12 by mouth ity of 15:50: every 8 [place] 57 (eight) Medical hours as Branch needed. omega-3 Yes 1g Take 1 g Univer s fatty -12 by mouth ity of acids-vitam 15:21: daily. [place] in [place] (FISH 27 Medical OIL) 1,000 Branch mg capsule TAKE ONE No (1) 1-09 TABLET(S) 00:00: BY MOUTH 00 THREE TIMES A DAY NEEDED. Methylpredn 2021-07- No [id number] 4mg Take 1 Univers isolone 4 0-22 10-24 tablet ity of mg tablet 00:00: 04:59 through [place] 00 :00 enteral Medical tube in Branch the morning for 1 dose. Methylpredn 2021-07- No [id number] 4mg Take 1 Univers isolone 4 0-21 10-23 tablet ity of mg tablet 00:00: 04:59 through [place] 00 :00 enteral Medical tube every Branch 12 (twelve) hours for 2 doses. MULTIVITAMI 2021-07 Yes 1{tbl} Take 1 Tab Univers N ORAL 0-20 by mouth ity of 14:44: daily. [place] [address] Medical Branch omega-3 2021-07 Yes 1g Take 1 g Univer s fatty 0-20 by mouth ity of acids-vitam 14:44: daily. [facility] in E (FISH 48 Medical OIL) 1,000 Branch mg capsule loratadine 2021-07 Yes Take by Univ ers (CLARITIN 0-20 mouth ity of LIQUI-GEL) 14:44: daily. [place] 10 mg 48 Medical capsule Branch ondansetron 2021-07 Yes 4mg Take 4 mg U nivers (ZOFRAN) 4 0-20 by mouth ity o f mg tablet 14:44: every 8 [place] 48 (eight) Medical hours as Branch needed. pantoprazol 2021-07 Yes 40mg Take 40 mg Univers e 0-20 by mouth ity of (PROTONIX) 14:44: daily. [place] 40 mg EC 48 Medical tablet Branch DULoxetine 2021-07 Yes 30mg 30 mg, Unive rs (CYMBALTA) 0-20 Oral, ity of capsule 30 14:00: DAILY, [place] mg 00 First dose Medical on [facility] 05/08/22 at 0900, Until Discontinu ed, Routine divalproex 2021-07 Yes 1000mg 1,000 mg, Univers (DEPAKOTE) 0-20 Oral, BID, ity of EC tablet 13:00: First dose [place] 1,000 mg 00 (after Medical last Branch modificati on) on [facility] 05/08/22 at 0800, Until Discontinu ed, Routine Methylpredn 2021-07- No 4mg 4 mg, Univ ers isolone 0-20 10-21 Oral, Q8H ity of (MEDROL) 08:50: 08:59 TAPER, 3 [place] tablet 4 mg 10 :00 doses, Medica l First dose Branch on [facility] 05/08/22 at 0400, Last dose on [facility] 05/08/22 at 2000, Routine acetaminoph 2021-07 Yes 1{tbl} 1 tablet, Univers en-codeine 0-20 Oral, ity of (TYLENOL 04:07: Q4HPRN, [place] #3) 300-30 01 Starting Medic al mg [...] Q6HPRN, [place] as 18 Starting Medical on [facility] Branch 05/07/22 at 1902, Until Discontinu ed, Routine, Anxiety cyclobenzap 2021-07 Yes [id number] 5mg Take 1 Univers rine 5 mg 0-20 tablet by ity o f tablet 00:00: mouth in [place] [address] the [facility] morning Branch and 1 tablet at noon and 1 tablet in the evening. cyclobenzap 2021-07 Yes [id number] 5mg Take 1 Univers rine 5 mg 0-20 tablet by ity o f tablet 00:00: mouth in [address] morning [place] and 1 tablet at noon and 1 tablet in the evening. cyclobenzap 2021-07 Yes [id number] 5mg Take 1 Univers rine 5 mg 0-20 tablet by ity o f tablet 00:00: mouth in [address] morning [place] and 1 tablet at noon and 1 tablet in the evening. cyclobenzap 2021-07 Yes [id number] 5mg Take 1 Univers rine 5 mg 0-20 tablet by ity o f tablet 00:00: mouth in [address] morning [place] and 1 tablet at noon and 1 tablet in the evening. cyclobenzap 2021-07 Yes [id number] 5mg Take 1 Univers rine 5 mg 0-20 tablet by ity o f tablet 00:00: mouth in [place] 00 the Medical morning Branch and 1 tablet at noon and 1 tablet in the evening. cyclobenzap 2021-07 Yes [id number] 5mg Take 1 Univers rine 5 mg 0-20 tablet by ity o f tablet 00:00: mouth in [place] 00 the Medical morning Branch and 1 tablet at noon and 1 tablet in the evening. DULoxetine 2021-07- No [id number] 60mg Take 2 Univers (CYMBALTA) 0-20 11-20 capsules ity of 30 mg 00:00: 05:59 by mouth [place] capsule 00 :00 in the Medical morning Branch for 30 days. divalproex 2021-07- No [id number] 750mg Take 3 Univers (DEPAKOTE) 0-20 11-20 tablets by it y of 250 mg EC 00:00: 05:59 mouth [place] tablet 00 :00 every 8 Medical (eight) Branch hours for 30 days. LORazepam 1 2021-07- No [id number] 1mg Take 1 Univers mg tablet 0-20 [...] Indication s: acute pain Methylpredn 2021-07- No [id number] 4mg Take 1 Univers isolone 4 0-20 10-22 tablet by ity of mg tablet 00:00: 04:59 mouth [place] 00 :00 every 8 Medical (eight) Branch hours for 3 doses. divalproex 2021-07- No 750mg 750 mg, Un lois (DEPAKOTE) 0-19 10-20 Oral, BID, it y of EC tablet 01:00: 09:40 First dose [place] 750 mg 00 :23 on [facility] 05/06/22 Branch at 2000, Until Discontinu ed, Routine levETIRAcet 2021-07 No 1500mg 1,500 mg, Univers am (KEPPRA) 05-06 Oral, BID, i ty of tablet 13:00: 18:38 First dose [place] 1,500 mg 00 :22 (after Medical last Branch modificati on) on [facility] 05/06/22 at 0800, Until Discontinu ed, Routine [...] [place] tablet 500 00 :42 on [facility] Medical mg 05/05/22 Branch at 2115, Until Discontinu ed, Routine LORazepam 2021-07 No 2mg 2 mg, Univer s (ATIVAN) 05-06 Oral, ity of tablet 2 mg 01:30: 01:03 ONCE, 1 [place] 00 :00 dose, On Medical [facility] Branch 05/05/22 at 2030, Routine levETIRAcet 2021-07 No 1000mg 1,000 mg, Univers am (KEPPRA) 05-06 Oral, BID, i ty of tablet 01:00: 04:48 First dose [place] 1,000 mg 00 :06 on [facility] 05/05/22 Branch at 2000, Until Discontinu ed, Routine enoxaparin 2021-07 Yes 40mg 40 mg, Unive rs (LOVENOX) 018 Subcutaneo ity of injection 00:15: us, Q24H, [place] as 40 mg 00 First dose Medical on [facility] Branch 05/05/22 at 1915, Until Discontinu ed, Routine levETIRAcet 2021-07 No 1000mg 1,000 mg, Univers am (KEPPRA) 0-17 10- IV ity of in NACL 19:45: 20:05 Piggyback, [place] as (ISO-OS) 00 :00 ONCE, 1 Medical 1,000 dose, On Branch mg/100 mL [facility] RTU 05/05/22 at 1445, Administer over 15 Minutes, 100 mL clonazePAM 2021-07 Yes .5mg 0.5 mg, Univ ers (KLONOPIN) 0-17 Oral, BID, ity of tablet 0.5 19:30: First dose [place] mg 00 on [facility] 05/05/22 Branch at 1430, Until Discontinu ed, Routine ibuprofen 2021-07 Yes 600mg 600 mg, Univ ers (IBU) 0-17 Oral, TID ity of tablet 600 19:30: MEALS, [place] mg 00 First dose Medical on [facility] 05/05/22 at 1430, Until Discontinu ed, Routine gabapentin 2021-07 Yes 300mg 300 mg, Uni vers (NEURONTIN) 0-17 Oral, TID, it y of capsule 300 19:30: First dose [place] mg 00 on [facility] 05/05/22 Branch at 1430, Until Discontinu ed, Routine cyclobenzap 2021-07 Yes 5mg 5 mg, Unive rs rine 0-17 Oral, TID, ity of (FLEXERIL) 19:30: First dose [place] tablet 5 mg 00 on [facility] Medica l 05/05/22 Branch at 1430, Until Discontinu ed, Routine acetaminoph 2021-07 Yes 1000mg 1,000 mg, Univers en 0-17 Oral, Q8H, ity of (TYLENOL) 19:30: First dose [place] tablet 00 on [facility] 1,000 mg 05/05/22 Branch at 1430, Until Discontinu ed, Routine pantoprazol 2021-07 Yes 40mg 40 mg, Univ ers e 0-17 Oral, ity of (PROTONIX) 14:00: DAILY, [place] EC tablet 00 First dose Medi kwame 40 mg on [facility] 05/05/22 at 0900, Until Discontinu ed, Routine docusate 2021-07 Yes 100mg 100 mg, Unive rs (COLACE) 0-17 Oral, ity of capsule 100 14:00: DAILY, [place] mg 00 First dose Medical on [facility] 05/05/22 at 0900, Until Discontinu ed, Routine HYDROcodone 2021-07- No 1{tbl} 1 tablet, Univers -acetaminop 0-17 10-17 Oral, ity of hen (NORCO) 10:32: 19:18 Q6HPRN, [place] 10-325 mg 02 :52 Starting Medica l tablet 1 on [facility] tablet 05/05/22 at 0532, Until Thu05/05/22 at 1418, Routine, Pain (scale 7-10) ondansetron 2021-07 Yes 4mg 4 mg, Slow Univers (ZOFRAN 0-17 IV Push, ity of (PF)) 06:49: Q6HPRN, [place] injection 4 57 Starting Medi kwame mg on [facility] Branch 05/05/22 at 0149, Until Discontinu ed, Routine, Nausea and Vomiting (N/V) HYDROcodone 2021-07- No 1{tbl} 1 tablet, Univers -acetaminop 0-05 05- Oral, ity of hen (NORCO 06:49: 10:32 Q6HPRN, [place] as 5) 5-325 mg 41 :14 Starting Medi kwame tablet 1 on [facility] tablet 05/05/22 at 0149, Until Thu05/05/22 at 0532, Routine, Pain (scale 7-10) acetaminoph 2021-07 No 325mg 325 mg, U nivers en 0-05-05 Oral, ity of (TYLENOL) 06:49: 19:18 Q4HPRN, [place] tablet 325 39 :52 Starting Medic al mg on [facility] 05/05/22 at 0149, Until Thu05/05/22 at 1418, Routine, Pain (scale 4-6) ondansetron 2021-07 No 4mg 4 mg, Univ ers (ZOFRAN) 0-05-05 Oral, ity of tablet 4 mg 04:00: 03:26 ONCE, 1 [place] 00 :00 dose, On Medical [place] Branch 05/04/22 at 2300, Routine morpHINE (2 2021-07 No 2mg 2 mg, Slow Univers mg/mL) 0-17 IV Push, ity of injection 2 04:00: 03:26 ONCE, 1 [place] mg 00 :00 dose, On Medical [place] 05/04/22 at 2300, Routine aspirin 81 Yes [id number] 81mg Take 1 U nivers mg chewable 9-28 tablet by ity of tablet 00:00: mouth in [place] 00 the Medical morning. Branch aspirin 81 2021-0 Yes [id number] 81mg Take 1 U nivers mg chewable 9-28 tablet by ity of tablet 00:00: mouth in [place] 00 the Medical morning. Branch aspirin 81 0 Yes [id number] 81mg Take 1 U nivers mg chewable 9-28 tablet by ity of tablet 00:00: mouth in [place] 00 the Medical morning. Branch aspirin 81 0 Yes [id number] 81mg Take 1 U nivers mg chewable 9-28 tablet by ity of tablet 00:00: mouth in [place] 00 the Medical morning. Branch aspirin 81 0 Yes [id number] 81mg Take 1 U nivers mg chewable 9-28 tablet by ity of tablet 00:00: mouth in [place] 00 the Medical morning. Branch aspirin 81 0 Yes [id number] 81mg Take 1 U nivers mg chewable 9-28 tablet by ity of tablet 00:00: mouth in [place] 00 the Medical morning. Branch aspirin 81 0 Yes [id number] 81mg Take 1 U nivers mg chewable 9-28 tablet by ity of tablet 00:00: mouth in [place] 00 the Medical morning. Branch MULTIVITAMI Yes 1{tbl} Take 1 Tab Univers N ORAL 9-27 by mouth ity of 17:39: daily. [place] 14 Medical Branch omega-3 Yes 1g Take [...] Starting Medic al mg tablet 1 on [place] tablet 04/15/22 at 0039, Until Thu04/15/22 at [...] Medical last Branch modificati on) on [facility] 04/14/22 at 2145, Until Discontinu ed, Routine ketorolac 2021- No 15mg 15 mg, Unive rs (TORADOL) 04-15 Slow IV ity of injection 02:13: 02:22 Push, [place] 15 mg 00 :00 ONCE, 1 Medical dose, On Branch [facility] 04/14/22 at 2115, Routine levETIRAcet Yes [id number] 1000mg Take 1 Univers am 1,000 mg 9-27 tablet by ity of tablet 00:00: mouth in [place] 00 the Medical morning Branch and 1 tablet in the evening. atorvastati Yes [id number] 40mg Take 1 Univers n 40 mg 9-27 tablet by ity of tablet 00:00: mouth at [place] [address] bedtime. Medical Branch atorvastati Yes [id number] 40mg Take 1 Univers n 40 mg 9-27 tablet by ity of tablet 00:00: mouth at [place] [address] bedtime. Medical Branch atorvastati Yes [id number] 40mg Take 1 Univers n 40 mg 9-27 tablet by ity of tablet 00:00: mouth at [place] [address] bedtime. Medical Branch atorvastati Yes [id number] 40mg Take 1 Univers n 40 mg 9-27 tablet by ity of tablet 00:00: mouth at [place] [address] bedtime. Medical Branch atorvastati Yes [id number] 40mg Take 1 Univers n 40 mg 9-27 tablet by ity of tablet 00:00: mouth at [place] [address] bedtime. Medical Branch atorvastati Yes [id number] 40mg Take 1 Univers n 40 mg 9-27 tablet by ity of tablet 00:00: mouth at [place] [address] bedtime. Medical Branch atorvastati Yes [id number] 40mg Take 1 Univers n 40 mg 9-27 tablet by ity of tablet 00:00: mouth at [place] [address] bedtime. Medical Branch levETIRAcet 2021- No [id number] 1000mg Take 1 Univers am 1,000 mg 9-27 10-20 tablet by it y of tablet 00:00: 00:00 mouth in [place] 00 :00 the Medical morning Branch and 1 tablet in the evening. lidocaine 5 2021- No [id number] 1{patch Apply 1 Univers % (700 9-27 [...] 12 Medical patch 1 Hours, Branch Patch [id number], Starting on Thu04/14/22 at 1645, Until Discontinu [...] Pain (scale 4-6) sulfur 2021-0 2022- No [id number] 5mL 5 mL, Univ ers hexafluorid 04-14 Intravenou i ty of e microsphr 16:45: 16:45 s, ONCE, 1 [place] (LUMASON) 00 :00 dose, On Medica l injection 5 Thu Branch mL 04/14/22 at 1145, Routine
geosciences faculty member approving Restricted medication : [employer] clopidogreL Yes 75mg 75 mg, Univ ers (PLAVIX) 75 04-14 Oral, ity of mg tablet 14:00: DAILY, [place] 75 mg 00 First dose Medical on [facility] 04/14/22 at 0900, Until Discontinu ed, Routine pantoprazol Yes 40mg 40 mg, Univ ers e 04-14 Oral, ity of (PROTONIX) 14:00: DAILY, [place] EC tablet 00 First dose Medi kwame 40 mg on [facility] 04/14/22 at 0900, Until Discontinu ed, Routine atorvastati Yes 40mg 40 mg, Univ ers n (LIPITOR) 04-14 Oral, QHS, it y of tablet 40 02:00: First dose [place] mg 00 on [facility] 04/13/22 at Branch 2100, Until Discontinu ed, Routine LORazepam 2021- No 1mg 1 mg, Univer s (ATIVAN) 04-14 Oral, ity of tablet 1 mg 01:30: 01:45 ONCE, 1 [place] 00 :[place] dose, On [facility] 04/13/22 at 2030, Routine methocarbam Yes 500mg 500 mg, Un lois oL 04-14 Oral, QID, ity of (ROBAXIN) 01:00: First dose [place] tablet 500 00 on [facility] mg 04/13/22 at Branch 2000, Until Discontinu ed, Routine heparin Yes 5000U 5,000 Univers (porcine) 04-14 Units, ity of injection 01:00: Subcutaneo [place] 5,000 Units 00 us, Q12H, Med ical First dose Branch on [place] 04/13/22 at 2000, Until Discontinu ed, Routine acetaminoph 2021- No 650mg 650 mg, U nivers en 04-14 Oral, ity of (TYLENOL) 00:23: 21:29 Q6HPRN, [place] tablet 650 25 :42 Starting Medic al mg on [facility] 04/13/22 at 1923, Until [facility] 04/14/22 at 1629, Routine, Pain (scale 1-3), Pain (scale 4-6), Temp > 38.5 C, Temp > 37.5 C lidocaine 2021-0 202- No 1{patch 1 Patch, Univers (LIDODERM) 04-14 } Topical, ity of 5 % (700 00:22: 13:51 Administer [place] mg/patch) 00 :00 over 12 Medical patch 1 Hours, Branch Patch ONCE, 1 dose, On [place] 04/13/22 at 1930, Routine FENTanyl PF 2021- No 50ug 50 mcg, Un lois (SUBLIMAZE 04-13 Slow IV ity o f (PF)) 20:30: 19:22 Push, [place] injection 00 :00 ONCE, 1 Medical 50 mcg dose, On Branch [place] 04/13/22 at 1530, Routine aspirin 2021- No 650mg 650 mg, Unive rs chewable 04-13 Oral, ity of tablet 650 20:15: 20:15 ONCE, 1 [place] mg 00 :00 dose, On Medical [facility] 04/13/22 at 1515, Routine clopidogreL 2021- No 300mg 300 mg, U nivers (PLAVIX) 04-13 Oral, ity of 300 mg 20:00: 19:15 ONCE, 1 [place] tablet 300 00 :00 dose, On Medic al mg [facility] 04/13/22 at 1500, Routine ondansetron 2021- No 4mg 4 mg, Slow Univers (ZOFRAN 04-13 IV Push, ity of (PF)) 19:30: 19:22 ONCE, 1 [place] injection 4 00 :00 dose, On Medi kwame mg [facility] 04/13/22 at 1430, MICHAEL iopamidol 2021- No [id number] 100mL 100 mL, Univers (ISOVUE 04-13 Intravenou ity o f 370-500 mL) 18:31: 18:32 s, ONCE, 1 [place] injection 00 :00 dose, On Medica l [address] [facility] 04/13/22 at 1345, Routine NaCl 0.9% Yes 5mL 5 mL, Slow Un lois (NS) 04-13 IV Push, ity of injection 5 18:14: PRN - SEE [place] mL 11 INSTRUCTIO Medical NS, Branch Starting on [place] 04/13/22 at 1314, Until Discontinu ed, 10 mL aspirin Yes 324mg 324 mg, Univer s chewable 5-08 Oral, ity of tablet 324 14:00: DAILY, [place] mg 00 First dose Medical on [place] [facility] 5/8/22 at 0900, Until Discontinu ed, [...] IV ity of succ 01:57: 02:11 Push, [place] (SOLU-MEDRO 00 :00 ONCE, 1 Medic al [...] IV ity of succ 01:57: 02:11 Push, [place] (SOLU-MEDRO 00 :00 ONCE, 1 Medic al L) dose, Sat Branch injection 03/16/21 at 125 mg 2100, STAT ipratropium No 3mL 3 mL, Univ ers -albuteroL 03-17 Inhalation it y of (DUONEB) 01:57: 02:15 , ONCE, 1 [place] 0.5 mg-3 00 :00 dose, Sat Medica l mg(2.5 mg 03/16/21 at Bran ch base)/3 mL 2100, MICHAEL nebulizer solution 3 mL levoFLOXaci No [id number] 500mg Take 1 Univers n 500 mg 03-17 tablet by ity o f tablet 00:00: 04:59 mouth [place] 00 :00 daily for Medical 6 days. Branch levoFLOXaci 2020- No [id number] 500mg Take 1 Univers n 500 mg 03-17 tablet by ity o f tablet 00:00: 04:59 mouth [place] 00 :00 daily for Medical 6 days. Branch levoFLOXaci 2020-2020- No [id number] 500mg Take 1 Univers n 500 mg 03-17 tablet by ity o f tablet 00:00: 04:59 mouth [place] 00 :00 daily for Medical 6 days. Branch levoFLOXaci No [id number] 500mg Take 1 Univers n 500 mg 03-17 tablet by ity o f tablet 00:00: 04:59 mouth [place] 00 :00 daily for Medical 6 days. Branch predniSONE 2020- No [id number] 30mg Take 3 Univers 10 mg 8-17 04-03 tablets by ity of tablet 00:00: 04:59 mouth [place] 00 :00 daily for Medical 4 days. Branch predniSONE 2020- No [id number] 30mg Take 3 Univers 10 mg 8-17 04-03 tablets by ity of tablet 00:00: 04:59 mouth [place] 00 :00 daily for Medical 4 days. Branch predniSONE 2020- No [id number] 30mg Take 3 Univers 10 mg 8-17 04- tablets by ity of tablet 00:00: 04:59 mouth [place] 00 :00 daily for Medical 4 days. Branch predniSONE 2020- No [id number] 30mg Take 3 Univers 10 mg 8-17 04- tablets by ity of tablet 00:00: 04:59 mouth [place] 00 :00 daily for Medical 4 days. Branch albuterol 2020- No [id number] 4{puff} 4 Puff, Univers (VENTOLIN) 03-15- Inhalation it y of inhaler 4 01:45: 00:44 , ONCE, 1 [place] Puff 00 :00 dose, [facility] Medical 03/14/21 at [place] 2044, Routine dexamethaso 2020- No [id number] 10mg 10 mg, Univers ne 03-15- Intramuscu ity of (DECADRON) 01:45: 00:45 lar, ONCE, [place] injection 00 :00 1 dose, Medical 10 mg [facility] 03/14/21 at 2044, Routine albuterol Yes [id number] 2.5mg Inhale 3 Univers 2.5 mg /3 8-27 mL every 4 ity of mL (0.083 00:00: (four) [place] %) 00 hours as Medical nebulizer needed for Bran ch solution Wheezing or Shortness of Breath. albuterol Yes [id number] 2.5mg Inhale 3 Univers 2.5 mg /3 8-27 mL every 4 ity of mL (0.083 00:00: (four) [place] %) 00 hours as Medical nebulizer needed for Bran ch solution Wheezing or Shortness of Breath. albuterol 2020-0 Yes [id number] 2.5mg Inhale 3 Univers 2.5 mg /3 8-27 mL every 4 ity of mL (0.083 00:00: (four) [place] %) 00 hours as Medical nebulizer needed for Bran ch solution Wheezing or Shortness of Breath. albuterol 2020-0 Yes [id number] 2.5mg Inhale 3 Univers 2.5 mg /3 8-27 mL every 4 ity of mL (0.083 00:00: (four) [place] %) 00 hours as Medical nebulizer needed for Bran ch solution Wheezing or Shortness of Breath. albuterol 2020-0 Yes [id number] 2.5mg Inhale 3 Univers 2.5 mg /3 8-27 mL every 4 ity of mL (0.083 00:00: (four) [place] %) 00 hours as Medical nebulizer needed for Bran ch solution Wheezing or Shortness of Breath. albuterol 2020-0 Yes [id number] 2.5mg Inhale 3 Univers 2.5 mg /3 8-27 mL every 4 ity of mL (0.083 00:00: (four) [place] %) 00 hours as Medical nebulizer needed for Bran ch solution Wheezing or Shortness of Breath. albuterol 2020-0 Yes [id number] 2.5mg Inhale 3 Univers 2.5 mg /3 8-27 mL every 4 ity of mL (0.083 00:00: (four) [place] %) 00 hours as Medical nebulizer needed for Bran ch solution Wheezing or Shortness of Breath. albuterol 2020-0 Yes [id number] 2.5mg Inhale 3 Univers 2.5 mg /3 8-27 mL every 4 ity of mL (0.083 00:00: (four) [place] %) 00 hours as Medical nebulizer needed for Bran ch solution Wheezing or Shortness of Breath. albuterol 2020-0 Yes [id number] 2.5mg Inhale 3 Univers 2.5 mg /3 8-27 mL every 4 ity of mL (0.083 00:00: (four) [place] %) 00 hours as Medical nebulizer needed for Bran ch solution Wheezing or Shortness of Breath. albuterol 2020-0 Yes [id number] 2.5mg Inhale 3 Univers 2.5 mg /3 8-27 mL every 4 ity of mL (0.083 00:00: ([facility]) [place] %) 00 hours as Medical nebulizer needed for Bran ch solution Wheezing or Shortness of Breath. albuterol 2020-0 Yes [id number] 2.5mg Inhale 3 Univers 2.5 mg /3 8-27 mL every 4 ity of mL (0.083 00:00: ([facility]) [place] %) 00 hours as Medical nebulizer needed for Bran ch solution Wheezing or Shortness of Breath. albuterol 2020-0 Yes [id number] 2.5mg Inhale 3 Univers 2.5 mg /3 8-27 mL every 4 ity of mL (0.083 00:00: ([facility]) [place] %) 00 hours as Medical nebulizer needed for Bran ch solution Wheezing or Shortness of Breath. albuterol 2020-0 Yes [id number] 2.5mg Inhale 3 Univers 2.5 mg /3 8-27 mL every 4 ity of mL (0.083 00:00: ([facility]) [place] %) 00 hours as Medical nebulizer needed for Bran ch solution Wheezing or Shortness of Breath. albuterol 2020-0 Yes [id number] 2.5mg Inhale 3 Univers 2.5 mg /3 8-27 mL every 4 ity of mL (0.083 00:00: ([facility]) [place] %) 00 hours as Medical nebulizer needed for Bran ch solution Wheezing or Shortness of Breath. albuterol 2020-0 Yes [id number] 2.5mg Inhale 3 Univers 2.5 mg /3 8-27 mL every 4 ity of mL (0.083 00:00: (four) [place] %) 00 hours as Medical nebulizer needed for Bran ch solution Wheezing or Shortness of Breath. albuterol 2020-0 Yes [id number] 2.5mg Inhale 3 Univers 2.5 mg /3 8-27 mL every 4 ity of mL (0.083 00:00: (four) [place] %) 00 hours as Medical nebulizer needed for Bran ch solution Wheezing or Shortness of Breath. albuterol 2020-0 Yes [id number] 2.5mg Inhale 3 Univers 2.5 mg /3 [...] (KEPPRA 8-03 mouth. ity of ORAL) 19:45: [address] levetiracet Yes Take by Uni vers am (KEPPRA 8-03 mouth. ity of ORAL) 19:45: [address] levetiracet Yes Take by Uni vers am (KEPPRA 8-03 mouth. ity of ORAL) 19:45: [address] levetiracet Yes Take by Uni vers am (KEPPRA 8-03 mouth. ity of ORAL) 19:45: [address] levetiracet Yes Take by Uni vers am (KEPPRA 8-03 mouth. ity of ORAL) 19:45: [address] levetiracet Yes Take by Uni vers am (KEPPRA 8-03 mouth. ity of ORAL) 19:45: [address] LISINOPRIL- 2020- No Take by Un lois HYDROCHLORO 02-19 mouth. ity o f THIAZIDE 19:41: 00:00 [place] ORAL 15 :00 [facility] dicyclomine 2020- No 20mg 20 mg, [...] Tue Medica l NaCl 0.9% 02/19/21 at [facility] h (NS) 50 mL 1415, 50 [...] 1,000 mL 00 :00 IV Medical Infusion, [place] ONCE, 1 dose, 02/19/21 at 1215, STAT ondansetron 2020- No 4mg 4 mg, Slow Univers (ZOFRAN 02-19 IV Push, ity of (PF)) 17:00: 15:59 ONCE, 1 [place] injection 4 00 :00 dose, Tue Med ical mg 02/19/21 at Branch 1200, MICHAEL iopamidol 2020- No [id number] 100mL 100 mL, Univers (ISOVUE 02-19 Intravenou ity o f 370-500 mL) 16:35: 16:45 s, ONCE, 1 [place] injection 00 :00 dose, Tue Medic al 100 mL 02/19/21 at Branch 1145, Routine levetiracet Yes Take by Uni vers am (KEPPRA 8-03 mouth. ity of ORAL) 14:45: [address] levetiracet Yes Take by Uni vers am (KEPPRA 8-03 mouth. ity of ORAL) 14:45: [address] levetiracet Yes Take by Uni vers am (KEPPRA 8-03 mouth. ity of ORAL) 14:45: [address] levetiracet Yes Take by Uni vers am (KEPPRA 8-03 mouth. ity of ORAL) 14:45: [place] [address] Medical Branch levetiracet 2020-0 Yes Take by Uni vers am (KEPPRA 8-03 mouth. ity of ORAL) 14:45: [place] [address] Medical Branch proMETHazin 2020-0 Yes [id number] 25mg Take 1 Univers e 25 mg 8-03 tablet by ity of tablet 00:00: mouth [place] 00 every 6 Medical (six) Branch hours as needed for Nausea and Vomiting (N/V). dicyclomine 2020-0 Yes [id number] 20mg Take 1 Univers 20 mg 8-03 tablet by ity of tablet 00:00: mouth [place] (four) Medical times Branch daily as needed for Abdominal pain. proMETHazin 2020-0 Yes [id number] 25mg Take 1 Univers e 25 mg 8-03 tablet by ity of tablet 00:00: mouth [place] 00 every 6 Medical (six) Branch hours as needed for Nausea and Vomiting (N/V). dicyclomine 2020-0 Yes [id number] 20mg Take 1 Univers 20 mg 8-03 tablet by ity of tablet 00:00: mouth [place] (four) Medical times Branch daily as needed for Abdominal pain. proMETHazin 2020-0 Yes [id number] 25mg Take 1 Univers e 25 mg 8-03 tablet by ity of tablet 00:00: mouth [place] 00 every 6 Medical (six) Branch hours as needed for Nausea and Vomiting (N/V). dicyclomine 2020-0 Yes [id number] 20mg Take 1 Univers 20 mg 8-03 tablet by ity of tablet 00:00: mouth [place] (four) Medical times Branch daily as needed for Abdominal pain. proMETHazin 2020-0 Yes [id number] 25mg Take 1 Univers e 25 mg 8-03 tablet by ity of tablet 00:00: mouth [place] 00 every 6 Medical (six) Branch hours as needed for Nausea and Vomiting (N/V). dicyclomine 202-0 Yes [id number] 20mg Take 1 Univers 20 mg 8-03 tablet by ity of tablet 00:00: mouth 4 [place] (four) Medical times Branch daily as needed for Abdominal pain. proMETHazin 2020-0 Yes [id number] 25mg Take 1 Univers e 25 mg 8-03 tablet by ity of tablet 00:00: mouth [place] 00 every 6 Medical (six) Branch hours as needed for Nausea and Vomiting (N/V). dicyclomine 2021-0 Yes [id number] 20mg Take 1 Univers 20 mg 8-03 tablet by ity of tablet 00:00: mouth 4 00 (four) Medical times Branch daily as needed for Abdominal pain. proMETHazin 2021-0 Yes [id number] 25mg Take 1 Univers e 25 mg 8-03 tablet by ity of tablet 00:00: mouth [place] 00 every 6 Medical (six) Branch hours as needed for Nausea and Vomiting (N/V). dicyclomine 2021-0 Yes [id number] 20mg Take 1 Univers 20 mg 8-03 tablet by ity of tablet 00:00: mouth (four) Medical times Branch daily as needed for Abdominal pain. proMETHazin 2021-0 Yes [id number] 25mg Take 1 Univers e 25 mg 8-03 tablet by ity of tablet 00:00: mouth [place] 00 every 6 Medical (six) Branch hours as needed for Nausea and Vomiting (N/V). dicyclomine 1-0 Yes [id number] 20mg Take 1 Univers 20 mg 8-03 tablet by ity of tablet 00:00: mouth (four) Medical times Branch daily as needed for Abdominal pain. proMETHazin 1-0 Yes [id number] 25mg Take 1 Univers e 25 mg 8-03 tablet by ity of tablet 00:00: mouth [place] 00 every 6 Medical (six) Branch hours as needed for Nausea and Vomiting (N/V). dicyclomine 2021-0 Yes [id number] 20mg Take 1 Univers 20 mg 8-03 tablet by ity of tablet 00:00: mouth (four) Medical times Branch daily as needed for Abdominal pain. proMETHazin 2021-0 Yes [id number] 25mg Take 1 Univers e 25 mg 8-03 tablet by ity of tablet 00:00: mouth [place] 00 every 6 Medical (six) Branch hours as needed for Nausea and Vomiting (N/V). dicyclomine 2021-0 Yes [id number] 20mg Take 1 Univers 20 mg 8-03 tablet by ity of tablet 00:00: mouth 4 (four) Medical times Branch daily as needed for Abdominal pain. proMETHazin 1-0 Yes [id number] 25mg Take 1 Univers e 25 mg 8-03 tablet by ity of tablet 00:00: mouth [place] 00 every 6 Medical (six) Branch hours as needed for Nausea and Vomiting (N/V). dicyclomine 2020-0 Yes [id number] 20mg Take 1 Univers 20 mg 8-03 tablet by ity of tablet 00:00: mouth 4 00 (four) Medical times Branch daily as needed for Abdominal pain. proMETHazin 2020-0 Yes [id number] 25mg Take 1 Univers e 25 mg 8-03 tablet by ity of tablet 00:00: mouth [place] 00 every 6 Medical (six) Branch hours as needed for Nausea and Vomiting (N/V). dicyclomine 2020-0 Yes [id number] 20mg Take 1 Univers 20 mg 8-03 tablet by ity of tablet 00:00: mouth 4 (four) Medical times Branch daily as needed for Abdominal pain. proMETHazin 2020-0 Yes [id number] 25mg Take 1 Univers e 25 mg 8-03 tablet by ity of tablet 00:00: mouth [place] 00 every 6 Medical (six) Branch hours as needed for Nausea and Vomiting (N/V). dicyclomine 2020-0 Yes [id number] 20mg Take 1 Univers 20 mg 8-03 tablet by ity of tablet 00:00: mouth (four) Medical times Branch daily as needed for Abdominal pain. proMETHazin 2020-0 Yes [id number] 25mg Take 1 Univers e 25 mg 8-03 tablet by ity of tablet 00:00: mouth [place] 00 every 6 Medical (six) Branch hours as needed for Nausea and Vomiting (N/V). dicyclomine 2020-0 Yes [id number] 20mg Take 1 Univers 20 mg 8-03 tablet by ity of tablet 00:00: mouth 4 00 (four) Medical times Branch daily as needed for Abdominal pain. proMETHazin 2020-0 Yes [id number] 25mg Take 1 Univers e 25 mg 8-03 tablet by ity of tablet 00:00: mouth [place] 00 every 6 Medical (six) Branch hours as needed for Nausea and Vomiting (N/V). dicyclomine 202-0 Yes [id number] 20mg Take 1 Univers 20 mg 8-03 tablet by ity of tablet 00:00: mouth 4 (four) Medical times Branch daily as needed for Abdominal pain. proMETHazin 0 Yes [id number] 25mg Take 1 Univers e 25 mg 8-03 tablet by ity of tablet 00:00: mouth [place] 00 every 6 Medical (six) Branch hours as needed for Nausea and Vomiting (N/V). dicyclomine Yes [id number] 20mg Take 1 Univers 20 mg 8-03 tablet by ity of tablet 00:00: mouth 4 00 (four) Medical times Branch daily as needed for Abdominal pain. proMETHazin Yes [id number] 25mg Take 1 Univers e 25 mg 8-03 tablet by ity of tablet 00:00: mouth [place] 00 every 6 Medical (six) Branch hours as needed for Nausea and Vomiting (N/V). dicyclomine Yes [id number] 20mg Take 1 Univers 20 mg 8-03 tablet by ity of tablet 00:00: mouth (four) Medical times Branch daily as needed for Abdominal pain. proMETHazin Yes [id number] 25mg Take 1 Univers e 25 mg 8-03 tablet by ity of tablet 00:00: mouth [place] 00 every 6 Medical (six) Branch hours as needed for Nausea and Vomiting (N/V). dicyclomine Yes [id number] 20mg Take 1 Univers 20 mg 8-03 tablet by ity of tablet 00:00: mouth (four) Medical times Branch daily as needed for Abdominal pain. proMETHazin Yes [id number] 25mg Take 1 Univers e 25 mg 8-03 tablet by ity of tablet 00:00: mouth [place] 00 every 6 Medical (six) Branch hours as needed for Nausea and Vomiting (N/V). dicyclomine Yes [id number] 20mg Take 1 Univers 20 mg 8-03 [...] o f mg tablet 20:05: every 8 [place] [address] (eight) Medical hours as Branch needed. pantoprazol 2018-0 Yes 40mg Take 40 mg Univers e 7-24 by mouth ity of (PROTONIX) 20:05: daily. [place] 40 mg EC Medical tablet Branch ondansetron 2017-0 Yes 4mg Take 4 mg U nivers (ZOFRAN) 4 7-24 by mouth ity o f mg tablet 20:05: every 8 [place] [address] (eight) Medical hours as Branch needed. pantoprazol [...] o f mg tablet 20:05: every 8 [place] [address] (eight) Medical hours as Branch needed. pantoprazol 2017-0 Yes 40mg Take 40 mg Univers e 7-24 by mouth ity of (PROTONIX) 20:05: daily. [place] 40 mg EC Medical tablet Branch ondansetron 2018-0 Yes 4mg Take 4 mg U nivers (ZOFRAN) 4 7-24 by mouth ity o f mg tablet 20:05: every 8 [place] [address] (eight) Medical hours as Branch needed. pantoprazol 2018-0 Yes 40mg Take 40 mg Univers e 7-24 by mouth ity of (PROTONIX) 20:05: daily. [place] 40 mg EC Medical tablet Branch ondansetron 2018-0 Yes 4mg Take 4 mg U nivers (ZOFRAN) 4 7-24 by mouth ity o f mg tablet 20:05: every 8 [place] [address] (eight) Medical hours as Branch needed. pantoprazol [...] 7-24 by mouth ity of 19:58: daily. [place] [address] Medical Branch loratadine Yes Take by Univ ers (CLARITIN 7-24 mouth ity of LIQUI-GEL) 19:58: daily. [place] 10 mg 14 Medical capsule Branch MULTIVITAMI Yes 1{tbl} Take 1 Tab Univers N ORAL 7-24 by mouth ity of 19:58: daily. [place] [address] Medical Branch loratadine Yes Take by Univ ers (CLARITIN 7-24 mouth ity of LIQUI-GEL) 19:58: daily. [place] 10 mg 14 Medical capsule Branch MULTIVITAMI Yes 1{tbl} Take 1 Tab Univers N ORAL 7-24 by mouth ity of 19:58: daily. [place] [address] Medical Branch loratadine Yes Take by Univ ers (CLARITIN 7-24 mouth ity of LIQUI-GEL) 19:58: daily. [place] 10 mg 14 Medical capsule Branch MULTIVITAMI Yes 1{tbl} Take 1 Tab Univers N ORAL 7-24 by mouth ity of 19:58: daily. [place] [address] Medical Branch loratadine Yes Take by Univ ers (CLARITIN 7-24 mouth ity of LIQUI-GEL) 19:58: daily. [place] 10 mg 14 Medical capsule Branch MULTIVITAMI Yes 1{tbl} Take 1 Tab Univers N ORAL 7-24 by mouth ity of 19:58: daily. [place] [address] Medical Branch loratadine Yes Take by Univ ers (CLARITIN 7-24 mouth ity of LIQUI-GEL) 19:58: daily. [place] 10 mg 14 Medical capsule Branch MULTIVITAMI Yes 1{tbl} Take 1 Tab Univers N ORAL 7-24 by mouth ity of 19:58: daily. [place] [address] Medical Branch loratadine Yes Take by Univ ers (CLARITIN 7-24 mouth ity of LIQUI-GEL) 19:58: daily. [place] 10 mg 14 Medical capsule Branch ondansetron Yes 4mg Take 4 mg U nivers (ZOFRAN) 4 7-24 by mouth ity o f mg tablet 15:05: every 8 [place] 01 (eight) Medical hours as Branch needed. [...] 7-24 by mouth ity of 14:58: daily. [place] [address] Medical Branch loratadine Yes Take by [facility] ers (CLARITIN 7-24 mouth ity of LIQUI-GEL) 14:58: daily. [place] 10 mg 14 Medical capsule Branch MULTIVITAMI Yes 1{tbl} Take 1 Tab Univers N ORAL 7-24 by mouth ity of 14:58: daily. [place] [address] Medical Branch loratadine Yes Take by [facility] ers (CLARITIN 7-24 mouth ity of LIQUI-GEL) 14:58: daily. [place] 10 mg 14 Medical capsule Branch MULTIVITAMI Yes 1{tbl} Take 1 Tab Univers N ORAL 7-24 by mouth ity of 14:58: daily. [place] [address] Medical Branch loratadine Yes Take by [facility] ers (CLARITIN 7-24 mouth ity of LIQUI-GEL) [...] Immunizations Ordered Filled Immunization Date Status Comments [facility] e Immunization Name Name SARS-COV-2 COVID-19 2022-02-19 Completed [facility] of [email or web address] BA-SUCROSE 00:00:00 [place] Medical VACCINE (ROSE TOP) [...] Unive rsity of PFIZER VACCINE 00:00:00 [place] [facility] kwame Branch SARS-COV-2 COVID-19 2021-05-24 Completed Unive rsity of PFIZER VACCINE 00:00:00 [place] [facility] kwame Branch SARS-COV-2 COVID-19 2021-05-24 Completed Unive rsity of PFIZER VACCINE 00:00:00 [place] Medi kwame Branch SARS-COV-2 COVID-19 2021-05-24 Completed Unive rsity of PFIZER VACCINE 00:00:00 [place] [facility] kwame Branch SARS-COV-2 COVID-19 2021-05-24 Completed Unive rsity of PFIZER VACCINE 00:00:00 [place] [facility] kwame Branch SARS-COV-2 COVID-19 2021-05-24 Completed Unive rsity of PFIZER VACCINE 00:00:00 [place] [facility] kwame Branch SARS-COV-2 COVID-19 2021-05-24 Completed Unive rsity of PFIZER VACCINE 00:00:00 [place] [facility] kwame Branch SARS-COV-2 COVID-19 2021-05-24 Completed Unive rsity of PFIZER VACCINE 00:00:00 [facility] SARS-COV-2 COVID-19 2021-05-24 Completed Unive rsity of PFIZER VACCINE 00:00:00 [facility] SARS-COV-2 COVID-19 2021-05-24 Completed Unive rsity of PFIZER VACCINE 00:00:00 [facility] SARS-COV-2 COVID-19 2021-05-03 Completed Unive rsity of PFIZER VACCINE 00:00:00 [facility] SARS-COV-2 COVID-19 2021-05-03 Completed Unive rsity of PFIZER VACCINE 00:00:00 [facility] SARS-COV-2 COVID-19 2021-05-03 Completed Unive rsity of PFIZER VACCINE 00:00:00 [facility] SARS-COV-2 COVID-19 2021-05-03 Completed Unive rsity of PFIZER VACCINE 00:00:00 [facility] SARS-COV-2 COVID-19 2021-05-03 Completed Unive rsity of PFIZER VACCINE 00:00:00 [facility] SARS-COV-2 COVID-19 2021-05-03 Completed Unive rsity of PFIZER VACCINE 00:00:00 [facility] SARS-COV-2 COVID-19 2021-05-03 Completed Unive rsity of PFIZER VACCINE 00:00:00 [facility] SARS-COV-2 COVID-19 2021-05-03 Completed Unive rsity of PFIZER VACCINE 00:00:00 [facility] SARS-COV-2 COVID-19 2021-05-03 Completed Unive rsity of PFIZER VACCINE 00:00:00 [facility] SARS-COV-2 COVID-19 2021-05-03 Completed Unive rsity of PFIZER VACCINE 00:00:00 [facility] SARS-COV-2 COVID-19 2021-05-03 Completed Unive rsity of PFIZER VACCINE 00:00:00 [facility] Vital Signs Vital Name Observation Time Observation Value Comments Source Systolic blood 2022-11-18 05:34:00 152 mm[Hg] Univer sity of pressure [facility] Diastolic blood 2022-11-18 05:34:00 98 mm[Hg] Unive rsity of pressure [place] [facility] Heart rate 2022-11-18 05:34:00 88 /min [facility] [place] [facility] Respiratory rate 2022-11-18 05:34:00 18 /min Univ ersity of [place] [facility] Oxygen saturation in 2022-11-18 05:34:00 97 /min University of Arterial blood by [facility] Pulse oximetry Branch Body temperature 2022-11-17 22:28:00 [...] 97 /min University of Arterial blood by [facility] Pulse oximetry Branch Body temperature 2022-08-02 01:00:00 36.44 Radha Univ ersity of [place] [facility] Systolic blood 2022-08-01 23:29:00 145 [...] 94 /min University of Arterial blood by [place] [employer] kwame Pulse oximetry Branch Body height 2022-05-05 23:44:00 160 cm Universi ty of [place] [facility] Body weight 2022-05-05 23:37:00 81.647 kg [facility] BMI 2022-05-05 23:37:00 31.89 kg/m2 [facility] Systolic blood 2022-04-15 18:52:00 104 mm[Hg] Univer [facility] of pressure [place] [facility] Diastolic blood 2022-04-15 18:52:00 82 mm[Hg] Unive rsity of pressure [facility] [place] [facility] Heart rate 2022-04-15 18:52:00 114 /min [facility] Oxygen saturation in 2022-04-15 18:52:00 98 /min University of Arterial blood by [facility] Pulse oximetry Branch Body temperature 2022-04-15 16:14:00 36.28 Radha [facility] [place] [facility] Respiratory rate 2022-04-15 16:14:00 17 /min [facility] [place] [facility] Body height 2022-04-13 21:08:00 160 cm [facility] Body weight 2022-04-13 21:08:00 91.173 kg [facility] BMI 2022-04-13 21:08:00 35.61 kg/m2 [facility] Systolic blood 2021-11-23 21:30:00 132 mm[Hg] Univer sity of pressure [facility] Diastolic blood 2021-11-23 21:30:00 76 mm[Hg] Unive rsity of pressure [facility] Heart rate 2021-11-23 21:30:00 95 /min [facility] Respiratory rate 2021-11-23 21:30:00 13 /min [facility] Oxygen saturation in 2021-11-23 21:30:00 97 /min [facility] of Arterial blood by [facility] kwame Pulse oximetry Branch Body temperature 2021-11-23 20:15:00 37.56 Radha [facility] [place] [facility] Systolic blood 2021-03-17 03:00:00 117 [...] 96 /min [facility] of Arterial blood by [place] [employer] kwame Pulse oximetry Branch Body temperature 2021-03-17 00:39:00 37.11 Radha [facility] [place] [facility] [...] 98 /min [facility] Arterial blood by [place] [employer] kwame Pulse oximetry Branch Systolic blood 2021-02-19 18:00:00 131 mm[Hg] Univer sity of pressure [facility] Diastolic blood 2021-02-19 18:00:00 80 mm[Hg] Unive rsity [facility] Heart rate 2021-02-19 18:00:00 83 /min [facility] Respiratory rate 2021-02-19 18:00:00 18 /min [facility] Oxygen saturation in 2021-02-19 18:00:00 100 /min University Arterial blood by [facility] Pulse oximetry Branch Body temperature 2021-02-19 15:47:00 37 Radha [facility] height 2021-02-19 15:47:00 160 cm [facility] Body weight 2021-02-19 15:47:00 58.968 kg [facility] BMI 2021-02-19 15:47:00 23.03 kg/m2 [facility] Respiratory rate 2022-08-03 14:40:00 18 /min [place] [facility] Systolic blood 2022-08-03 12:13:00 112 mm[Hg] [facility] Diastolic blood 2022-08-03 12:13:00 77 mm[Hg] [facility] Heart rate 2022-08-03 12:13:00 115 /min [facility] Oxygen saturation in 2022-08-03 12:13:00 93 /min [facility] Arterial blood by Medical nter Pulse oximetry Body temperature 2022-08-03 12:00:00 36.83 Radha [place] [facility] Body height 2022-08-02 21:52:00 160.2 cm [facility] Body weight 2022-08-02 21:52:00 95 kg [facility] BMI 2022-08-02 21:52:00 37.02 kg/m2 [facility] BP Systolic 2022-07-24 13:31:00 136 mm[Hg] [...] Unknown, Hl7 Doctor [facility] 05:03:32 [facility] ECG 12-LEAD 2022-08-03 Unknown, Hl7 Doctor [facility] 05:03:32 [facility] ECG 12-LEAD 2022-08-03 Unknown, Hl7 Doctor [facility] 05:03:32 [facility] LIPID PANEL 2022-08-[address] [facility] 21:14:00 [facility] TSH/FREE T4 IF INDICATED 2022-08-[address] [facility] 21:14:00 [facility] VITAMIN B12 2022-08-[address] [facility] 21:14:00 [facility] HEMOGLOBIN A1C 2022-08-[address] [facility] 21:14:00 [facility] COMPREHENSIVE METABOLIC PANEL 2022-08-02 Donaldo Hightower [facility] 21:14:00 [facility] CBC W/PLT COUNT & AUTO 2022-08-02 Donaldo Hightower [facility] DIFFERENTIAL 21:14:00 [facility] RPR 2022-08-[address] [facility] 21:14:00 [facility] HC LAB HIV-1 AG W/HIV-1&2 AB 2022-08-[address] [facility] 21:14:00 [facility] C-REACTIVE PROTEIN 2022-08-[address] [facility] 21:14:00 [facility] CBC W/PLT COUNT & AUTO 2022-08-02 Donaldo Hightower [facility] DIFFERENTIAL 21:14:00 [facility] EKG-SCANNED 2022-08-[address] [facility] 00:00:00 Scanning [facility] CT HEAD WO CONTRAST 2022-08-01 Lorenza Her [place] o f 23:52:15 [facility] GALV ONLY - INFLUENZA A B RSV 2022-08-01 Letitia Chambers iversity of PCR 18:28:00 [facility] TRANSTHORACIC ECHO (TTE) 2022-08-01 Kylee Diego ity of COMPLETE W/ CONTRAST 14:42:00 [facility] MAGNESIUM 2022-08-01 Lorenza Her [place] of 10:42:00 [facility] BASIC METABOLIC PANEL (NA, K, 2022-08-01 Lorenza Her Un iversity of CL, CO2, GLUCOSE, BUN, 10:42:00 [facility] ical CREATININE, CA) Branch CBC WITH DIFF 2022-08-01 Lorenza Her [place] of 10:42:00 [facility] N-TERMINAL PRO-BNP 2022-08-01 Shabbir Diegoformerly [facility] of 10:42:00 [facility] POCT GLUCOSE (AUTOMATED) 2022-08-01 Lorenza Her [facility] ity of 06:56:00 [facility] CRITICAL CARE 2022-07-31 Sav Rondon [place] of 22:31:36 [facility] URINALYSIS 2022-07-31 Sav Rondon [place] of 20:52:00 [facility] URINE DRUG (IMMUNOASSAY) - 2022-07-31 Sav [facility] COMPREHENSIVE DRUG SCREEN W/O 20:[place] [facility] REFLEX Branch XR CHEST 1 VW 2022-07-31 Sav Rondon of 18:45:17 [facility] LIPASE 2022-07-31 Sav Rondon of 17:58:00 [facility] TROPONIN I 2022-07-31 Sav Rondon [place] of 17:58:00 [facility] COMP. METABOLIC PANEL (43726) 2022-07-31 Sav Rondon iversity of 17:58:00 [facility] CBC WITH DIFF 2022-07-31 Sav Rondon of 17:58:00 [facility] PROTHROMBIN TIME / INR 2022-07-31 Sav Rondonit y of 17:58:00 [facility] ACTIVATED PARTIAL THRMPLAS 2022-07-31 Sav Rondon [facility] of DAVID 17:58:00 [facility] N-TERMINAL PRO-BNP 2022-07-31 Sav Rondon [place] of 17:58:00 [facility] HB ECG ROUTINE & RHYTHM STRIP 2022-07-31 Sav Rondon iversity of 17:46:28 [facility] NOTICE OF PRIVACY PRACTICES 2022-07-31 Doctor Unassigned, U niversity of 17:35:38 [place] [facility] CONSENT/REFUSAL FOR DIAGNOSIS 2022-07-31 Doctor Unassigned, University of AND TREATMENT 17:35:13 [place] [facility] PHOSPHORUS 2022-05-08 Shefali [facility] 05:51:00 [facility] MAGNESIUM 2022-05-08 [facility] of 05:51:00 [facility] BASIC METABOLIC PANEL (NA, K, 2022-05-08 Shefali, Azeem U niversity of CL, CO2, GLUCOSE, BUN, 05:51:00 [place] [facility] CREATININE, [place]) Branch CBC WITH DIFF 2022-05-08 Shefali [facility] of 05:51:00 [facility] BASIC METABOLIC PANEL (NA, K, 2022-05-07 [facility] of CL, CO2, GLUCOSE, BUN, 07:09:00 [facility] ica CREATININE, CA) Branch CBC WITH DIFF 2022-05-07 [facility] of 07:09:00 [facility] POCT GLUCOSE (AUTOMATED) 2022-05-07 Brandyn Mcfarlane ity of 01:16:00 [facility] HB ABO GROUPING 2022-05-06 [facility] of 05:07:00 [facility] BASIC METABOLIC PANEL (NA, K, 2022-05-06 Shefali, [place] U niversity of CL, CO2, GLUCOSE, BUN, 05:04:00 [place] [facility] CREATININE, CA) Branch CBC WITH DIFF 2022-05-06 Shefali [facility] of 05:04:00 [facility] KEPPRA (LEVETIRACETAM) 2022-05-06 [facility] ty of 05:04:00 [facility] MR LUMBAR SPINE WO CONTRAST 2022-05-06 Kneedler, Ender U niversity of 02:54:37 [facility] ELECTROENCEPHALOGRAM 2022-05-06 [facility] ty of 00:00:00 [facility] BASIC METABOLIC PANEL (NA, K, 2022-05-05 jennifer [facility] [place] of CL, CO2, GLUCOSE, BUN, 07:57:00 [facility] ica CREATININE, CA) Branch CBC WITH DIFF 2022-05-05 [facility] 07:57:00 [facility] PROTHROMBIN TIME / INR 2022-05-05 [facility] ersity of 07:57:00 [facility] ACTIVATED PARTIAL THRMPLAS 2022-05-05 [facility] of DAVID 07:57:00 [facility] FIBRINOGEN 2022-05-05 [facility] of 07:57:00 [facility] EMERGENCY SERVICES AGREEMENTS 2022-05-04 Doctor Unassigned, University of AND AUTHORIZATIONS 05:01:00 [place] [facility] VITAMIN D, 25-OH 2022-04-15 Sen [place] of 16:53:00 [facility] MR THORACIC SPINE WO CONTRAST 2022-04-15 Soumya Chua Un iversity of 11:56:19 [facility] MR CERVICAL SPINE WO CONTRAST 2022-04-15 Soumya Chua Un iversity of 11:20:00 [facility] BASIC METABOLIC PANEL (NA, K, 2022-04-15 Charmaine Morataya Un iversity of CL, CO2, GLUCOSE, BUN, 10:36:00 [place] [facility] CREATININE, CA) Branch TEST, URINE 2022-04-15 [facility] 04:39:00 [facility] URINE DRUG (IMMUNOASSAY) - 2022-04-15 [facility] COMPREHENSIVE DRUG SCREEN 04:39:00 [facility] URINALYSIS 2022-04-15 [facility] of 04:39:00 [facility] TRANSTHORACIC ECHO (TTE) 2022-04-14 [facility] ity of COMPLETE W/ CONTRAST 16:37:03 [facility] KEPPRA (LEVETIRACETAM) 2022-04-14 [facility] of 15:30:00 [facility] MAGNESIUM 2022-04-14 [facility] of 10:03:00 [facility] BASIC METABOLIC PANEL (NA, K, 2022-04-[address] [facility] Un iversity of CL, CO2, GLUCOSE, BUN, 10:03:00 [place] [facility] CREATININE, CA) Branch MR LUMBAR SPINE WO CONTRAST 2022-04-14 [facility] ersity of 02:48:12 [facility] MR STROKE BRAIN WO CONTRAST 2022-04-14 [facility] ersity of 02:29:[address] [facility] [address] STROKE ANGIOGRAM HEAD 2022-04-13 Sapna Vargas [facility] ersity of 18:40:[address] [facility] [address] STROKE ANGIOGRAM NECK 2022-04-13 Sapna Vargas [facility] ersity of 18:40:[address] [facility] CT STROKE HEAD WO CONTRAST 2022-04-13 Sapna Vargas Un iversity of 18:36:00 [facility] TROPONIN I 2022-04-13 Sapna Vargas [facility] 18:17:00 [facility] THYROID STIMULATING HORMONE 2022-04-13 [facility] ersity of 18:17:00 [facility] BASIC METABOLIC PANEL (NA, K, 2022-04-13 Sapna Vargas [facility] CL, CO2, GLUCOSE, BUN, 18:17:00 [facility] ical CREATININE, CA) Branch LIPID PANEL ([id number])(TOTAL 2022-04-13 [facility] sit of CHOLESTEROL, TRIGLYCERIDES, 18:17:00 [facility] HDL) Branch CBC WITHOUT DIFF 2022-04-13 Sapna Vargas [place] f 18:17:00 [facility] GLYCOSYLATED HEMOGLOBIN (A1C) 2022-04-[address] [facility] Un iversity of 18:17:00 [facility] PROTHROMBIN TIME / INR 2022-04-13 Sapna Vargas [facility] sity of 18:17:00 [facility] ACTIVATED PARTIAL THRMPLAS 2022-04-13 Sapna Vargas iversity of DAVID 18:17:00 [facility] COVID-19 (ID NOW RAPID 2022-04-13 Sapna Vargas [facility] sity of TESTING) 18:17:00 [facility] LAB ONLY COVID INTERPRETATION 2022-04-13 Sapna Vargas [facility] 18:17:00 [facility] HB ECG ROUTINE & RHYTHM STRIP 2022-04-13 Sapna Vargas [facility] 18:15:49 [facility] CONSENT/REFUSAL FOR DIAGNOSIS 2022-04-13 Doctor Unassigned, [facility] AND TREATMENT 18:05:14 [place] [facility] HOSPITAL ADMISSION 2022-04-13 Doctor Unassigned, [facility] 05:01:00 [place] [facility] SARS-COV-2 COVID-19 VACCINE 2022-02-19 Doctor Unassigned, U niversity of 12 YRS+,0.3ML,IM (PFIZER - 15:21:12 [place] [facility] URINE DRUG (IMMUNOASSAY) - 2021-11-23 Nichelle Allison U niversity of COMPREHENSIVE DRUG SCREEN W/O 21:21[place]00 [place] [facility] CT HEAD WO CONTRAST 2021-11-23 [facility] ty of 20:58:00 [facility] POCT TEST 2021-11-23 [facility] ty of 20:46:00 [facility] URINALYSIS 2021-11-23 [facility] o f 20:43:00 [facility] LIPASE 2021-11-23 [facility] f 20:27:00 [facility] TROPONIN I 2021-11-23 [facility] f 20:27:00 [facility] COMP. METABOLIC PANEL ([id number]) 2021-11-23 [facility] of 20:27:00 [facility] CBC WITH DIFF 2021-11-23 [facility] f 20:27:00 [facility] POCT GLUCOSE (AUTOMATED) 2021-11-23 Doctor Unassigned, Univ ersity of 20:15:00 [place] [facility] SARS-COV-2 COVID-19 2021-05-24 Doctor Unassigned, Universit y of VACCINE,0.3ML,IM (PFIZER) 14:23:12 [place] [facility] SARS-COV-2 COVID-19 2021-05-03 Doctor Unassigned, Universit y of VACCINE,0.3ML,IM (PFIZER) 14:59:29 [place] [facility] EMERGENCY SERVICES AGREEMENTS 2021-04-16 Doctor Unassigned, [place] of AND AUTHORIZATIONS 05:01:00 [place] [facility] URINALYSIS 2021-03-17 Fabrice Chakraborty [place] of 03:09:00 [facility] XR CHEST 1 VW 2021-03-17 [facility] of 01:45:07 [facility] TROPONIN I 2021-03-17 Vincent, [facility] of 01:35:00 [facility] COMP. METABOLIC PANEL ([id number]) 2021-03-17 Fabrice Chakraborty Un iversity of 01:35:00 [facility] CBC WITH DIFF 2021-03-17 Fabrice Chakraborty [place] of 01:35:00 [facility] N-TERMINAL PRO-BNP 2021-03-17 [facility] of 01:35:00 [facility] COVID-19 (ID NOW RAPID 2021-03-17 Brian Ray [facility] y of TESTING) 00:58:00 [facility] CONSENT/REFUSAL FOR DIAGNOSIS 2021-03-17 Doctor Unassigned, [facility] AND [facility] 00:32:59 [place] [facility] COVID-19 (ID NOW RAPID 2021-02-19 Anali Patel [facility] y of TESTING) 17:04:[address] [facility] [address] ABDOMEN PELVIS W CONTRAST 2021-02-19 Anali Patel Uni versity of 16:41:18 [facility] LIPASE 2021-02-19 Anali Patel [place] of 15:58:00 [facility] COMP. METABOLIC PANEL ([id number]) 2021-02-19 Anali Patel Un iversity of 15:58:00 [facility] CBC WITH DIFF 2021-02-19 Anali Patel [place] of 15:58:00 [facility] URINALYSIS 2021-02-19 Anali Patel [place] of 15:58:00 [facility] NOTICE OF PRIVACY PRACTICES 2021-02-19 Doctor Unassjulee, U niversity of 15:30:46 [place] [facility] CONSENT/REFUSAL FOR DIAGNOSIS 2021-02-19 Doctor Unassigned, [facility] AND [facility] 15:30:30 [place] [facility] Plan of Care Planned Activity Planned Date Details Comments Source Future Scheduled 2025-08-02 Lipid panel (procedure) [facility] 00:00:00 [code = 57840997] Medical Ce nter Future Scheduled 2025-08-02 Lipid panel (procedure) [facility] 00:00:00 [code = 54568136] Medical Ce nter Future Scheduled 2025-08-02 Lipid panel (procedure) [facility] 00:00:00 [code = 10459162] Medical Ce nter Future Scheduled 2025-08-02 Lipid panel (procedure) [facility] 00:00:00 [code = 67793605] Medical Ce nter Future Scheduled 2025-08-02 Lipid panel (procedure) [facility] 00:00:00 [code = 90388471] Medical Ce nter Future Scheduled 2025-08-02 Lipid panel (procedure) [facility] 00:00:00 [code = 36246843] Medical Ce nter Future Scheduled 2025-08-02 Lipid panel (procedure) [facility] 00:00:00 [code = 76798636] Medical Ce nter Future Scheduled 2025-08-02 Lipid panel (procedure) [facility] 00:00:00 [code = 93704243] Medical Ce nter Future Scheduled 2025-08-02 Lipid panel (procedure) [facility] 00:00:00 [code = 54316280] Medical Ce nter Future Scheduled 2023-03-20 INFLUENZA [...] cervix Medical C enter (procedure) [code = 048523027] Future Scheduled 1993-01-14 Screening for malignant [facility] 00:00:00 neoplasm of cervix Medical C enter (procedure) [code = 498295529] Future Scheduled 1993-01-14 Screening for malignant [facility] 00:00:00 neoplasm of cervix Medical C enter (procedure) [code = 728245455] Future Scheduled 1993-01-14 Screening for malignant [facility] 00:00:00 neoplasm of cervix Medical C enter (procedure) [code = 743844114] Future Scheduled 1993-01-14 Screening for malignant [facility] 00:00:00 neoplasm of cervix Medical C enter (procedure) [code = 404631603] Future Scheduled 1993-01-14 Screening for malignant [facility] Test 00:00:00 neoplasm of cervix Medical C enter (procedure) [code = 471923479] Future Scheduled 1993-01-14 Screening for malignant [facility] 00:00:00 neoplasm of cervix Medical C enter (procedure) [code = 155871238] Future Scheduled 1993-01-14 Screening for malignant [facility] 00:00:00 neoplasm of cervix Medical C enter (procedure) [code = 846873281] Future Scheduled 1993-01-14 Screening for malignant [facility] 00:00:00 neoplasm of cervix Medical C enter (procedure) [code = 194843630] Future Scheduled 1991-01-14 DTAP/TDAP/TD VACCINES CH I [...] breast Medical C enter (procedure) [code = 990051752] Future Scheduled 1972 CT Colonography (combo) [facility] 00:00:00 [code = CT Colonography [facility] (combo)] Future Scheduled 1972 Screening for malignant [facility] 00:00:00 neoplasm of colon Medical Ce nter (procedure) [code = 051413637] Future Scheduled 1972 Screening for malignant [facility] 00:00:00 neoplasm of colon Medical Ce nter (procedure) [code = 648625867] Future Scheduled 1972 Screening for malignant [facility] 00:00:00 neoplasm of colon Medical Ce nter (procedure) [code = 017050198] Future Scheduled 1972 Screening for malignant [facility] 00:00:00 neoplasm of colon Medical Ce nter (procedure) [code = 594746707] Future Scheduled 1972 Sigmoidoscopy [facility]] Medical Cente r Future Scheduled 1972 Screening for malignant [facility] 00:00:00 neoplasm of breast Medical C enter (procedure) [code = 240707648] Future Scheduled 1972 CT Colonography (combo) [facility] 00:00:00 [code = CT Colonography [facility] (combo)] Future Scheduled 1972 Screening for malignant [facility] 00:00:00 neoplasm of colon Medical Ce nter (procedure) [code = 226165990] Future Scheduled 1972 Screening for malignant [facility] 00:00:00 neoplasm of colon Medical Ce nter (procedure) [code = 125966878] Future Scheduled 1972 Screening for malignant [facility] 00:00:00 neoplasm of colon Medical Ce nter (procedure) [code = 241699430] Future Scheduled 1972 Screening for malignant [facility] 00:00:00 neoplasm of colon Medical Ce nter (procedure) [code = 572339985] Future Scheduled 1972 Sigmoidoscopy [facility]] Medical Cente r Future Scheduled 1972 Screening for malignant [facility] 00:00:00 neoplasm of breast Medical C enter (procedure) [code = 057563435] Future Scheduled 1972 CT Colonography (combo) [facility] 00:00:00 [code = CT Colonography [facility] (combo)] Future Scheduled 1972 Screening for malignant [facility] 00:00:00 neoplasm of colon Medical Ce nter (procedure) [code = 761066461] Future Scheduled 1972 Screening for malignant [facility] 00:00:00 neoplasm of colon Medical Ce nter (procedure) [code = 530091385] Future Scheduled 1972 Screening for malignant [facility] 00:00:00 neoplasm of colon Medical Ce nter (procedure) [code = 710542113] Future Scheduled 1972 Screening for malignant [facility] 00:00:00 neoplasm of colon Medical Ce nter (procedure) [code = 764376940] Future Scheduled 1972 Sigmoidoscopy [facility]] Medical Cente r Future Scheduled 1972 Screening for malignant [facility] 00:00:00 neoplasm of breast Medical C enter (procedure) [code = 443945494] Future Scheduled 1972 CT Colonography (combo) [facility] 00:00:00 [code = CT Colonography [facility] (combo)] Future Scheduled 1972 Screening for malignant [facility] 00:00:00 neoplasm of colon Medical Ce nter (procedure) [code = 606199335] Future Scheduled 1972 Screening for malignant [facility] 00:00:00 neoplasm of colon Medical Ce nter (procedure) [code = 079895804] Future Scheduled 1972 Screening for malignant [facility] 00:00:00 neoplasm of colon Medical Ce nter (procedure) [code = 380299302] Future Scheduled 1972 Screening for malignant [facility] 00:00:00 neoplasm of colon Medical Ce nter (procedure) [code = 874180137] Future Scheduled 1972 Sigmoidoscopy [facility]code [facility]] Medical Cente r Future Scheduled 1972 Screening for malignant [facility] 00:00:00 neoplasm of breast Medical C enter (procedure) [code = 619354109] Future Scheduled 1972 CT Colonography (combo) [facility] 00:00:00 [code = CT Colonography [facility] (combo)] Future Scheduled 1972 Screening for malignant [facility] 00:00:00 neoplasm of colon Medical Ce nter (procedure) [code = 850967117] Future Scheduled 1972 Screening for malignant [facility] 00:00:00 neoplasm of colon Medical Ce nter (procedure) [code = 048435287] Future Scheduled 1972 Screening for malignant [facility] 00:00:00 neoplasm of colon Medical Ce nter (procedure) [code = 899406303] Future Scheduled 1972 Screening for malignant [facility] 00:00:00 neoplasm of colon Medical Ce nter (procedure) [code = 557594865] Future Scheduled 1972 Sigmoidoscopy [facility]code [facility] S[facility]oscopy] Medical Cente r Future Scheduled 1972 Screening for malignant [facility] 00:00:00 neoplasm of breast Medical C enter (procedure) [code = 310385556] Future Scheduled 1972 CT Colonography (combo) [facility] 00:00:00 [code = CT Colonography [facility] (combo)] Future Scheduled 1972 Screening for malignant [facility] 00:00:00 neoplasm of colon Medical Ce nter (procedure) [code = 426720588] Future Scheduled 1972 Screening for malignant [facility] 00:00:00 neoplasm of colon Medical Ce nter (procedure) [code = 955456261] Future Scheduled 1972 Screening for malignant [facility] 00:00:00 neoplasm of colon Medical Ce nter (procedure) [code = 932381443] Future Scheduled 1972 Screening for malignant [facility] 00:00:00 neoplasm of colon Medical Ce nter (procedure) [code = 802651366] Future Scheduled 1972 Sigmoidoscopy [code = [facility]] Medical Cent[facility] Future Scheduled 1972 Screening for malignant [facility] 00:00:00 neoplasm of breast Medical C enter (procedure) [code = 363806708] Future Scheduled 1972 CT Colonography (combo) [facility] 00:00:00 [code = CT Colonography [facility] (combo)] Future Scheduled 1972 Screening for malignant [facility] 00:00:00 neoplasm of colon Medical Ce nter (procedure) [code = 264001543] Future Scheduled 1972 Screening for malignant [facility] 00:00:00 neoplasm of colon Medical Ce nter (procedure) [code = 738163078] Future Scheduled 1972 Screening for malignant [facility] 00:00:00 neoplasm of colon Medical Ce nter (procedure) [code = 165350773] Future Scheduled 1972 Screening for malignant [facility] 00:00:00 neoplasm of colon Medical Ce nter (procedure) [code = 655417631] Future Scheduled 1972 Sigmoidoscopy [code = [facility]] Medical Cente r Future Scheduled 1972 Screening for malignant [facility] 00:00:00 neoplasm of breast Medical C enter (procedure) [code = 018566769] Future Scheduled 1972 CT Colonography (combo) [facility] 00:00:00 [code = CT Colonography [facility] (combo)] Future Scheduled 1972 Screening for malignant [facility] 00:00:00 neoplasm of colon Medical Ce nter (procedure) [code = 400303973] Future Scheduled 1972 Screening for malignant [facility] 00:00:00 neoplasm of colon Medical Ce nter (procedure) [code = 925369393] Future Scheduled 1972 Screening for malignant [facility] 00:00:00 neoplasm of colon Medical Ce nter (procedure) [code = 367515658] Future Scheduled 1972 Screening for malignant [facility] 00:00:00 neoplasm of colon Medical Ce nter (procedure) [code = 778929458] Future Scheduled 1972 Sigmoidoscopy [code = [facility]] Medical Cente r Future Scheduled 1972 Screening for malignant [facility] 00:00:00 neoplasm of breast Medical C enter (procedure) [code = 534382274] Future Scheduled 1972 CT Colonography (combo) [facility] 00:00:00 [code = CT Colonography [facility] (combo)] Future Scheduled 1972 Screening for malignant [facility] 00:00:00 neoplasm of colon Medical Ce nter (procedure) [code = 297478254] Future Scheduled 1972 Screening for malignant [facility] 00:00:00 neoplasm of colon Medical Ce nter (procedure) [code = 772219359] Future Scheduled 1972 Screening for malignant [facility] 00:00:00 neoplasm of colon Medical Ce nter (procedure) [code = 165999419] Future Scheduled 1972 Screening for malignant [facility] 00:00:00 neoplasm of colon Medical Ce nter (procedure) [code = 048501892] Future Scheduled 1972 Sigmoidoscopy [facility]code = [facility] [code = 48640-7] Goal Plan of Care Note [code = 16941-3] Goal Plan of Care Note [code = 41235-1] Goal Plan of Care Note [code = 52329-5] Goal Plan of Care Note [code = 61589-3] Goal Plan of Care Note [code = 28003-4] Goal Plan of Care Note [code = 48274-3] Goal Plan of Care Note [code = 12597-3] Goal Plan of Care Note [code = 33496-1] Goal Plan of Care Note [code = 20934-3] Goal Plan of Care Note [code = 70442-1] Goal Plan of Care Note [code = 89165-0] Goal Plan of Care Note [code = 63745-6] Goal Plan of Care Note [code = 07539-1] Goal Plan of Care Note [code = 10345-8] Goal Plan of Care Note [code = 08981-5] Goal Plan of Care Note [code = 95817-2] Goal Plan of Care Note [code = 85707-3] Goal Plan of Care Note [code = 09812-7] Goal Plan of Care Note [code = 40313-8] Goal Plan of Care Note [code = 13186-8] Goal Plan of Care Note [code = 39306-4] Goal Plan of Care Note [code = 51868-6] Goal Plan of Care Note [code = 08370-2] Goal Plan of Care Note [code = 05944-6] Goal Plan of Care Note [code = 39529-4] Goal Plan of Care Note [code = 37862-4] Goal Plan of Care Note [code = 90020-0] Goal Plan of Care Note [code = 15108-4] Goal Plan of Care Note [code = 44322-9] Goal Plan of Care Note [code = 72672-7] Goal Plan of Care Note [code = 01622-2] Goal Plan of Care Note [code = 30514-3] Goal Plan of Care Note [code = 82862-4] Goal Plan of Care Note [code = 36403-6] Encounters Start End Encounter Admission Attending Care Care Encounter Source Date/Time Date/Time Type Type Clinicians Facility Department ID 2021-05-20 Emergency [facility] [id number] Univers 18:48:04 ity [facility] 2021-05-20 Emergency [facility] [id number] Univers 12:43:40 ity [facility] 2022-11-17 2022-11-18 Emergency X BRIANA, [facility] ERT [id number] Univers 17:25:00 01:19:00 RITCHIE itshawn [facility] 2022-11-17 2022-11-18 Emergency Briana, [facility] 1.2.980.988 [id number] Univers 17:25:00 01:19:00 Ritchie Stoner MARY 350.1.13.10 it[place] [phone] [facility] 0[address] 2022-08-28 2022-08-28 Patient Shy Beckman 1.2.840.114 10 [id number] Univers 00:00:00 00:00:00 Outreach E WALLACE 350.1.13.10 i [place] [id number] [facility] 403 [address] 2022-08-20 2022-08-20 Patient Shy Beckman 1.2.840.114 10 [id number] Univers 00:00:00 00:00:00 Outreach E [place] 350.1.13.10 [place] [id number] [facility] [address] 2022-08-02 2022-08-03 Hospital Halima Mendoza [facility] [id number] 17:30[facility]00 14:29:00 Encounter Jen Yepez [facility] 2022-08-02 2022-08-03 Outpatient ER ROXI, [facility] Neurology [id number] SLE 17:30:00 14:29:00 [facility] 2022-08-02 2022-08-03 [id number] 17:30[facility]00 14:29:00 [facility] 2022-08-03 Orders [facility] [id number] 00:00:00 00:00:[address] [facility] 2022-08-03 2022-08-03 Orders [facility] [id number] 00:00:00 00:00:[address] [facility] 2022-08-02 2022-08-02 Travel [facility] [id number] [facility] 00:[facility]:00 [facility] 2022-08-02 2022-08-02 Travel [facility] [id number] [facility] 00:[facility]:00 [facility] 2022-07-31 2022-08-01 Inpatient X ARDEN SCKEVIN [facility] [id number] Univers 11:42:00 21:48:00 LORENZA najera [facility] 2022-07-31 2022-08-01 Hospital Alcon Sav [facility] 1.2.840.1 14 [id number] Univers 11:42:00 21:48:00 Encounter Lorenza Her 350.1.13.10 reinaldo [facility] 4.2.7.2.686 [facility] [id number] [place] [address] Branch 2022-08-01 2022-08-01 Transition BLAYNE Nicole 1.2.840.114 [id number] Univers 00:00:00 00:00:00 of Care Maria Teresa WALLACE 350.1.13.10 it[place] [id number] [facility] [address] 2022-07-28 2022-07-28 Outpatient SFA [facility] [id number] Adria 14:41:38 14:41:38 [address] [place] 2022-07-28 2022-07-28 Outpatient [id number]- [id number] 3d [id number] 00:00:00 00:00:00 Visit [id number] -[id number] [id number] [id number] 2022-07-24 2022-07-24 Outpatient [facility] [id number] 023 Adria 13:24:40 13:24:40 0105 [address] [place] 2022-05-23 2022-05-23 Outpatient [facility] [id number] 022 Adria 14:51:01 14:51:01 1104 [address] [place] 2022-05-23 2022-05-23 Outpatient [id number]- [id number] f9 [id number]-l 00:00:00 00:00:00 Visit l16l-9vg3 62f-4bb7-b -h40o-9u3 [id number] 7850ee 2022-05-04 2022-05-08 Outpatient X CHANTEL MATTHEWS [facility] S [place] [id number] Univers 20:22:00 14:44:00 CHANTEL MATTHEWS [facility] 2022-05-04 2022-05-08 Emergency BrinerBrandyn 1.2.840.1 14 [id number] Univers 20:22:00 14:44:00 Chantel Matthews 350.1.13 .10 ity of [facility] 4.2.7.2.686 Javier as [id number] [facility] [address] [place] 2022-04-13 2022-04-15 Inpatient X CONRAD [facility] BERNARDINO [id number] Univers 13:06:00 15:00:00 SELINA itshawn [facility] 2022-04-13 2022-04-15 [facility] Sapna Vargas 1.2.84 0.114 [id number] Univers 13:06:00 15:00:00 Encounter Glory EstevesY 350. 1.13.10 ity of [facility] 4.2.7.2.686 [place] [id number] [facility] [address] 2022-02-19 2022-02-19 Imm/Inj Vaccine, [facility] [place] 1.2.840.114 [id number] Univers 10:20:00 10:30:00 Visit Jose Frederick 350.1.13.10 it[place] [facility] [id number] [facility] [address] 2022-02-19 2022-02-19 Outpatient R JOSE FREDERICK [facility] [id number] Univers 10:20:00 10:20:00 ity of [facility] 2021-11-23 2021-11-23 Emergency X ESTEFANY [facility] ERT [id number] Univers 15:07:00 17:03:00 NICHELLE ity of [facility] 2021-11-23 2021-11-23 Emergency Sav Rondon [facility] 1.2.840. 114 [id number] Univers 15:07:00 17:03:00 Nichelle Allison 350.1.13. 10 ity of [place] 4.2.7.2.686 [facility] [phone] [facility] [address] 2021-11-21 2021-11-21 Outpatient R [facility] [id number] Univers 09:40:00 09:40:00 ity of [facility] 2021-05-24 2021-05-24 Outpatient R JOSE FREDERICK [facility] [id number] Univers 09:30:00 09:30:00 ity of [facility] 2021-05-24 2021-05-24 Imm/Inj Vaccine, [facility] [place] 1.2.840.114 [id number] Univers 08:47:51 08:57:51 Visit Jose Frederick 350.1.13.10 [place] [facility] [id number] [facility] [address] 2021-05-03 2021-05-03 Outpatient R JOSE FREDERICK [facility] [id number] Univers 09:40:00 09:59:35 ity of [facility] 2021-05-03 2021-05-03 Imm/Inj Vaccine, Chung Pierson [facility] Anjelica etienne 1.2.840.114 [id number] Univers 09:17:43 09:59:35 Visit Jose Frederick 350.1.13.10 [place] [facility] [id number] [facility] [address] 2021-04-16 2021-04-16 Orders Doctor EWELINA 1.2.840.114 [id number] Univers 00:00:00 00:00:00 Only Unassigned, HOSEA 350.1.13.10 ity of [place] [facility] 4.2.7.2.686 Javier as [id number] [facility] 00[address] 2021-03-17 2021-03-17 Telephone EWELINA Nava 1.2.891.371 [id number] Univers 00:00:00 00:00:00 Aneatrice HOSEA 350.1.13.10 ity of [facility] 4.2.7.2.686 Javier as [id number] [facility] [address] 2021-03-16 2021-03-16 Emergency Palmer [facility] 1.2.840.114 [id number] Univers 20:08:00 23:24:00 Shinta Mary 350.1.13.10 i [place] [id number] [facility] [address] 2021-03-14 2021-03-14 Urgent Ebrahim, Lydia [facility] 1.2.840.114 [id number] Univers 18:59:34 20:19:13 Care Unknown, Attending Health 350.1.13.10 ity of [place] 4.2.7.2.686 Javier as Prem?Blea [id number] Id damon d[address] [facility] 2021-03-14 2021-03-14 Outpatient R UNKNOWN, [facility] [id number] Univers 19:00:00 19:00:00 ATTENDING ity of [facility] 2021-02-19 2021-02-19 Emergency Eliana [facility] 1.2.348.233 [id number] Univers 10:49:00 14:48:00 Anali Harrell 350.1.13.10 i [place] [id number] [facility] [address] [place] 2019-03-09 2019-03-09 Dick [facility] 1.2.840.114 [id number] 00:00:00 00:00:00 Yehuda Harrell 350.1.13.10 [place] 4.2.7.2.686 Professio [id number] [facility] 2019-03-09 2019-03-09 Dick [facility] 1.2.840.114 [id number] Univers 00:00:00 00:00:00 Yehuda Harrell 350.1.13.10 ity [facility] 4.2.7.2.686 [facility] [id number] Id dical [facility] Results Test Description Test Time Test Comments Results Result Comments Source R 2022-08-05 13:17:22 Test Item Value Reference Range Interpretation Comme nts RPR SCREEN (LATOYA) (test code = 420) Nonreactive Nonreactive HEMOGLOBIN [id number] 10:39:49 Test Item Value Reference Range Interpretation Comments HEMOGLOBIN A1C 5.8 % See_Comment H [Automated m essage] [facility]ESIS ([facility] The system which (test code = 3811) generated this result transmitted ref erence range: <=5.6%. The reference range was not used to int erpret this result as normal/abnormal . "The A1c is measured using a NGSP-certified method. HbA1c value equal to or greater than 6.5% as thediagnosis cutoff for diabetes. An HbA1c value of 5.7- 6.4% indicates increased risk for diabetes (prediabetes)."Plastic Roller ID - ADM VITAMIN [id number] 22:48:27 Test Item Value Reference Range Interpretation Comments VITAMIN B12 (LATOYA) (test code = 227 pg/mL 213-662 691) Plastic Roller ID - MARCOTSH/FREE T4 IF [id number] 22:08:28 Test Item Value Reference Range Interpretation Comments THYROID STIMULATING HORMONE 3.309 uIU/mL 0.350-4.940 (BEAKER) (test code = 772) Plastic Roller ID - LEONHIV-1 ANTIGEN WITH HIV-1/2 [id number] 22:08:28 Test Item Value Reference Range Interpretation Comments HIV-1 ANTIGEN WITH HIV 1\\T\\2 Nonreactive Nonreactive ANTIBODY (2) (BEAKER) (test code = 2586) Plastic Roller ID - JSC-REACTIVE [id number] 21:49:44 Test Item Value Reference Range Interpretation Comments C-REACTIVE PROTEIN (BEAKER) (test 0.35 mg/dL 0.00-0.50 code = 676) Plastic Roller ID - LEONCOMPREHENSIVE METABOLIC [id number] 21:49:43 Test Item Value Reference Range Interpretation [...] (test code = 347) EGFR (BEAKER) 77 Interpretati on of eGFR (test code = 1092) mL/min/1.73 [...] not appl icable for dialysis patien ts Plastic Roller ID - JSLIPID [id number] 21:49:43 Test Item Value Reference Range Interpretation [...] Borderline 130-159 High 160-189 Very High >=190 Plastic Roller ID - JSCBC W/PLT COUNT & AUTO [id number] 21:34:03 Test Item Value Reference Range Interpretation [...] Interpretation Comments Height (test code = in 8208179947) Weight (test code = lbs 9139861613) Systolic BP (test code = mmHg 1260450894) Diastolic BP (test code mmHg = 4934070734) Heart Rate (test code = bpm 6906881115) BSA (test code = 2.00 m2 8767399924) Ao root diam (test code 3.20 cm = 2714795077) Aortic root (test code = 3.2 cm 4158076638) Ao root annulus (test 3.2 cm code = 7553169679) LVOT diameter (test code 1.99 cm = 2759957596) LVOT area (test code = 3.10 cm2 6924028072) LVIDD (test code = 5.10 cm 8377927565) Left Ventricular End 123.0 mL Diastolic Volume by Teichholz Method (test code = 6587204) IVS (test code = 1.34 cm 7089598170) Interventricular Septum 1.34 cm Diastolic Thickness by 2D (test code = 7075204) LVPWD (test code = 1.34 cm 0786660469) PW (test code = 1.34 cm 0.6-1.7 2328733920) EF(Teich) (test code = 41.80 % 1926961846) LVIDS (test code = 4.00 cm 6226278639) Left Ventricular End 71.5 mL Systolic Volume by Teichholz Method (test code = 8780641) FS (test code = 21 % 8344785922) EF - 2D (test code = 41.80 % 51077019) LA size (test code = 4.6 cm 5879974888) Pulmonic Regurgitant End 119.4 cm/s Max Velocity (test code = 3509000679) LAV(MOD-sp4) (test code 95.00 mL = 5253173269) E wave decelartion time 0.15 s (test code = 4006401871) MV stenosis pressure 1/2 45.6 ms time (test code = 2419119919) MV Peak A Evette (test code 123.8 cm/s = 7284298442) MV Peak E Evette (test code 109.7 cm/s = 3125503173) E/A ratio (test code = ratio 5716640871) MR max PG (test code = 87.20 mm[Hg] 3289847516) MR max evette (test code = 466.90 cm/s 6617336341) Mr max evette (test code = 466.9 m/s 5851590334) MV Prop V (test code = 51.00 cm/s 4013710253) MV E/e' septal (test 8.1 cm/s code = 9083163928) Tapse (test code = 2.21 cm 5388534222) LVOT stroke volume (test 49.80 cm3 code = 3094592631) LVOT peak evette (test code 89.1 cm/s = 0558711959) LVOT mn grad (test code mmHg = 6670551518) AV LVOT peak gradient mmHg (test code = 1854550719) LVOT peak VTI (test code 16.0 cm = 9863960215) LV V1 mean (test code = 64.30 cm/s 9945915600) Aortic valve mean 133.8 cm/s velocity (test code = 5935451720) Ao peak evette (test code = 175.3 cm/s 8078420939) Ao VTI (test code = 32.2 cm 4247617320) AV area by cont VTI 1.6 cm2 (test code = 0759468707) AV area peak evette (test 1.6 cm2 code = 8566490373) Ao max PG (test code = 12.30 mm[Hg] 3320961172) AV peak gradient (test mmHg code = 0267486985) AV valve area (test code 1.55 cm2 = 9175228639) AV mean gradient (test mmHg code = 9333359789) AV regurgitation 358.5 ms pressure 1/2 time (test code = 1179055600) AI dec slope (test code 364.20 cm/s2 = 5409775376) AI max evette (test code = 445.80 cm/s 2666219228) AI max PG (test code = 79.50 mm[Hg] 6800298958) Radiology Study observation (narrative) (test code = 09456-7) LYNDSAY (test code = LYNDSAY) ?Left?Ventricle: Left [...] mL of Lumason ultrasound enhancing agent [facility]. [facility])2022-08-01 10:43:32 Test Item Value Reference Range Interpretation Comments POCT GLU (test code = 8295501460) 148 mg/dL 70-110 H Lab Interpretation (test code = Abnormal 77499-8) [facility] CenterACTIVATED PARTIAL THRMPLAS [id number] 18:39:45 Test Item Value Reference Range Interpretation Comments APTT Patient (test See_Comment [Automat ed code = 3173-2) message] The system which generated this result transmitted reference range : 23 - 38 Seconds . The reference range was not used to interpr et this result as normal/abnormal . LYNDSAY (test code = LYNDSAY) The [facility] patient population mean normal value for aPTT is 30 seconds. Lab Interpretation Normal (test code = 54531-4) [facility] CenterPROTHROMBIN TIME / [id number] 18:37:42 Test Item Value Reference Range Interpretation [...] tions. Lab Interpretation (test Normal code = 68758-6) [facility] CenterTROPONIN [id number] 18:32:01 Test Item Value Reference Interpretation Comments Range TROPONIN I (test 0.019 ng/mL See_Comment [Automated code = 7992603694) message] The system which generated this result [...] biotin. Lab Interpretation Normal (test code = 78006-6) [facility] CenterN-TERMINAL [id number] 18:29:01 Test Item Value Reference Range Interpretation Comments NT-proBNP (test code 2770 pg/mL See_Comment H [Autom ated = 4922022633) message] The system which generated this result transmitted reference range : <=125. The reference range was not used to interpret this result as normal/abnormal . LYNDSAY (test code = LYNDSAY) Biotin has been reported to cause a negative bias, interpret results relative to patient's use of biotin. Lab Interpretation Abnormal (test code = 28156-6) [facility] CenterCOMP. METABOLIC PANEL (66226)2022-07-31 18:21:42 Test Item Value Reference Range Interpretation Comments NA (test code = 136 mmol/L 135-145 9985032699) K (test code = 4.6 mmol/L 3.5-5.0 4114209379) CL (test code = 104 mmol/L 98-108 4319207305) CO2 TOTAL (test code = 26 mmol/L 23-31 3586199221) AGAP (test code = 2-16 4746982588) BUN (test code = 9 mg/dL 7-23 4647292792) GLUCOSE (test code = 97 mg/dL 70-110 7883610258) CREATININE (test code = 0.64 mg/dL 0.50-1.04 9572025024) TOTAL BILI (test code = 0.5 mg/dL 0.1-1.4 6019910718) CALCIUM (test code = 8.2 mg/dL 8.6-10.6 L 1104931542) T PROTEIN (test code = 6.5 g/dL 6.3-8.2 7838194641) ALBUMIN (test code = 3.9 g/dL 3.5-5.0 4276395966) ALK PHOS (test code = 93 U/L 34-122 7654628197) ALTv (test code = 18 U/L 5-35 1742-6) AST(SGOT) (test code = 19 U/L 13-40 6651148629) eGFR (test code = mL/min/1.73m2 2784188855) LYNDSAY (test code = LYNDSAY) Association of [...] tests). Lab Interpretation Abnormal (test code = 05072-8) [facility] CenterLIPASE2023-01-12 18:21:01 Test Item Value Reference Range Interpretation Comments LIPASE (test code = 3169000491) 54 U/L 0-220 Lab Interpretation (test code = Normal 83464-4) [facility] CenterCB WITH [id number] 18:07:00 Test Item Value Reference Range Interpretation [...] (test code = 53.1 fL 39.0-49.9 H 64028-9) RDW-CV (test code = 17.0 % 12.0-15.5 H 788-0) PLT (test code = See_Comment H [Automated 777-3) message] The sy stem which generated this result transmitted reference range : 166 - 358 10*3/ ?L. The reference r zoe was not used to interpret this result as normal/abnormal . MPV (test code = 8.2 fL 9.5-12.9 L 97701-5) NRBC/100 WBC (test See_Comment [Automat ed code = 7283732927) message] The system which generated this result transmitted reference range : 0.0 - 10.0 /100 WBCs. The refer ence range was not u sed to interpret th is result as normal/abnormal . NRBC x10^3 (test code See_Comment [Auto mated = 0659008998) message] The s ystem which generated this result transmitted reference range : 10*3/?L. The reference range was not used to interpret this result as normal/abnormal . GRAN MAT (NEUT) % 64.0 % (test code = 770-8) IMM GRAN % (test code 0.40 % = 2832297725) LYMPH % (test code = 27.3 % 736-9) MONO % (test code = 6.5 % 5905-5) EOS % (test code = 1.1 % 713-8) BASO % (test code = 0.7 % 706-2) GRAN MAT x10^3(ANC) 5.46 10*3/uL 1.88-7.09 (test code = 4550693467) IMM GRAN x10^3 (test 0.03 10*3/uL 0.00-0.06 code = 2722842374) LYMPH x10^3 (test code 2.32 10*3/uL 1.32-3.29 = 731-0) MONO x10^3 (test code 0.55 10*3/uL 0.33-0.92 = 742-7) EOS x10^3 (test code = 0.09 10*3/uL 0.03-0.39 711-2) BASO x10^3 (test code 0.06 10*3/uL 0.01-0.07 = 704-7) Lab Interpretation Abnormal (test code = 79419-9) [facility] METABOLIC PANEL (NA, K, CL, CO2, GLUCOSE, BUN, CREATININE, CA)2022-05-08 06:37:01 Test Item Value Reference Range Interpretation Comments NA (test code = 137 mmol/L 135-145 7390319419) K (test code = 3.8 mmol/L 3.5-5 2824381340) CL (test code = 103 mmol/L 98-108 0348725296) CO2 TOTAL (test code = 24 mmol/L 23-31 5132152420) AGAP (test code = 2-16 8922287691) BUN (test code = 13 mg/dL 7-23 1272009865) GLUCOSE (test code = 90 mg/dL 70-110 3618575033) CREATININE (test code = 0.69 mg/dL 0.5-1.04 3134471956) CALCIUM (test code = 8.5 mg/dL 8.6-10.6 L 1237522472) eGFR (test code = mL/min/1.73m2 7803648634) LYNDSAY (test code = LYNDSAY) Association of [...] tests). Lab Interpretation Abnormal (test code = 42750-3) [facility] Test Item Value Reference Range Interpretation Comments MAGNESIUM (test code = 9635873880) 2.1 mg/dL 1.7-2.4 Lab Interpretation (test code = Normal 56978-5) [facility] CenterPHOSPHORUS2022-10-20 06:37:01 Test Item Value Reference Range Interpretation Comments PHOSPHORUS (test code = 7092622829) 4.7 mg/dL 2.5-5 Lab Interpretation (test code = Normal 28245-5) [facility] WITH [id number] 06:11:54 Test Item Value Reference Range Interpretation [...] (test code = 51.0 fL 39-49.9 H 93800-9) RDW-CV (test code = 16.5 % 12-15.5 H 788-0) PLT (test code = See_Comment H [Automated 777-3) message] The sy stem which generated this result transmitted reference range : 166 - 358 10*3/ ?L. The reference r zoe was not used to interpret this result as normal/abnormal . MPV (test code = 8.3 fL 9.5-12.9 L 89043-3) NRBC/100 WBC (test See_Comment [Automat ed code = 6970640074) message] The system which generated this result transmitted reference range : 0.0 - 10.0 /100 WBCs. The refer ence range was not u sed to interpret th is result as normal/abnormal . NRBC x10^3 (test code See_Comment [Auto mated = 2505873565) message] The s ystem which generated this result transmitted reference range : 10*3/?L. The reference range was not used to interpret this result as normal/abnormal . GRAN MAT (NEUT) % 64.5 % (test code = 770-8) IMM GRAN % (test code 0.50 % = 8969575841) LYMPH % (test code = 27.1 % 736-9) MONO % (test code = 6.6 % 5905-5) EOS % (test code = 0.6 % 713-8) BASO % (test code = 0.7 % 706-2) GRAN MAT x10^3(ANC) 5.28 10*3/uL 1.88-7.09 (test code = 6266855300) IMM GRAN x10^3 (test 0.04 10*3/uL 0-0.06 code = 4617778218) LYMPH x10^3 (test code 2.22 10*3/uL 1.32-3.29 = 731-0) MONO x10^3 (test code 0.54 10*3/uL 0.33-0.92 = 742-7) EOS x10^3 (test code = 0.05 10*3/uL 0.03-0.39 711-2) BASO x10^3 (test code 0.06 10*3/uL 0.01-0.07 = 704-7) Lab Interpretation Abnormal (test code = 41562-8) [facility] CenterPOCT GLUCOSE (AUTOMATED)2022-05-07 01:18:10 Test Item Value Reference Range Interpretation Comments POCT GLU (test code = 1773199897) 120 mg/dL 70-110 H Lab Interpretation (test code = Abnormal 11328-5) [facility] CenterType and Screen - ONCE [id number] 05:46:35 Test Item Value Reference Range Interpretation Comments ABO & RH (test code O POSITIVE Performe d at [facility] = 20) Laboratory Serv [facility] Blood Bank3 [address] [facility] [address]Fyag Free: [phone] A No. [id number] IAT (test code = Negative Performed a t [facility] 1185) Laboratory Serv [facility] Blood [address] [place] [address]Tbbq Free: [phone] A No. [id number] [facility] (NA, K, CL, CO2, GLUCOSE, BUN, CREATININE, CA)2022-05-05 08:22:57 Test Item Value Reference Range Interpretation Comments NA (test code = 136 mmol/L 135-145 6606784408) K (test code = 4.9 mmol/L 3.5-5 3216030596) CL (test code = 108 mmol/L 98-108 4728483347) CO2 TOTAL (test code = 22 mmol/L 23-31 L 6841221115) AGAP (test code = 2-16 2124000354) BUN (test code = 12 mg/dL 7-23 4880171955) GLUCOSE (test code = 155 mg/dL 70-110 H 1950292296) CREATININE (test code = 0.63 mg/dL 0.5-1.04 7245623325) CALCIUM (test code = 8.4 mg/dL 8.6-10.6 L 9540636314) eGFR (test code = mL/min/1.73m2 7268173598) LYNDSAY (test code = LYNDSAY) Association of [...] tests). Lab Interpretation Abnormal (test code = 52059-6) [facility] CenterPROTHROMBIN TIME / [id number] 08:22:37 Test Item Value Reference Range Interpretation Comments PROTIME PATIENT (test See_Comment [Auto mated message] code = 5964-2) The system Retur[employer] ich generated this result transmitted ref erence range: 10.1 - 1 2.6 Seconds. The re ference range was not u sed to interpret this result as normal/abnor mal. INR (test code = 6301-6) Nor mal INR <1.1; Warfarin Therap eutic range 2.0 to 3. 0 or 2.5 to 3.5, dep ending upon the indica tions. Lab Interpretation (test Normal code = 34177-4) [facility] CenteraPTT2022-10-17 08:22:37 Test Item Value Reference Range Interpretation Comments APTT Patient (test code = See_Comment [ Automated message] 3173-2) The system [employer] generated this result transmitted ref erence range: 26 - 36 Seconds. The re ference range was not u sed to interpret this result as normal/abnor mal. Lab Interpretation (test Normal code = 35405-1) [facility] CenterFIBRINOGEN2022-10-17 08:22:37 Test Item Value Reference Range Interpretation Comments Fibrinogen (test code = 8203759744) 294 mg/dL 167-453 Lab Interpretation (test code = Normal 57790-6) [facility] CenterCB WITH [id number] 08:15:01 Test Item Value Reference Range Interpretation [...] (test code = 52.9 fL 39-49.9 H 53705-4) RDW-CV (test code = 16.8 % 12-15.5 H 788-0) PLT (test code = See_Comment H [Automated 777-3) message] The sy stem which generated this result transmitted reference range : 166 - 358 10*3/ ?L. The reference r zoe was not used to interpret this result as normal/abnormal . MPV (test code = 8.3 fL 9.5-12.9 L 62040-8) NRBC/100 WBC (test See_Comment [Automat ed code = 1104351466) message] The system which generated this result transmitted reference range : 0.0 - 10.0 /100 WBCs. The refer ence range was not u sed to interpret th is result as normal/abnormal . NRBC x10^3 (test code See_Comment [Auto mated = 1670183212) message] The s ystem which generated this result transmitted reference range : 10*3/?L. The reference range was not used to interpret this result as normal/abnormal . GRAN MAT (NEUT) % 86.4 % (test code = 770-8) IMM GRAN % (test code 0.40 % = 2218232926) LYMPH % (test code = 11.7 % 736-9) MONO % (test code = 1.1 % 5905-5) EOS % (test code = 0.0 % 713-8) BASO % (test code = 0.4 % 706-2) GRAN MAT x10^3(ANC) 6.36 10*3/uL 1.88-7.09 (test code = 9325572577) IMM GRAN x10^3 (test 0.03 10*3/uL 0-0.06 code = 6289634027) LYMPH x10^3 (test code 0.86 10*3/uL 1.32-3.29 L = 731-0) MONO x10^3 (test code 0.08 10*3/uL 0.33-0.92 L = 742-7) EOS x10^3 (test code = 0.03-0.39 L 711-2) BASO x10^3 (test code 0.03 10*3/uL 0.01-0.07 = 704-7) Lab Interpretation Abnormal (test code = 97355-7) [facility] CenterVITAMIN D, [id number] 20:14:03 Test Item Value Reference Range Interpretation Comments VIT D 25OH (test code = 22 ng/mL 25-80 L 40574-1) LYNDSAY (test code = LYNDSAY) Deficiency: <20 ng/mLInsufficiency: 20-24 ng/mLOptimal: 25-80 ng/mL Lab Interpretation (test Abnormal code = 51072-0) [facility] CenterBASI METABOLIC PANEL (NA, K, CL, CO2, GLUCOSE, BUN, CREATININE, CA)2022-04-15 11:27:57 Test Item Value Reference Range Interpretation Comments NA (test code = 138 mmol/L 135-145 4977299191) K (test code = 3.9 mmol/L 3.5-5 8566336387) CL (test code = 106 mmol/L 98-108 3495769346) CO2 TOTAL (test code = 23 mmol/L 23-31 0509678576) AGAP (test code = 2-16 2737425696) BUN (test code = 10 mg/dL 7-23 8454867469) GLUCOSE (test code = 91 mg/dL 70-110 3237142070) CREATININE (test code = 0.65 mg/dL 0.5-1.04 7328025972) CALCIUM (test code = 8.1 mg/dL 8.6-10.6 L 0139112016) eGFR (test code = mL/min/1.73m2 9457498278) LYNDSAY (test code = LYNDSAY) Association of [...] tests). Lab Interpretation Abnormal (test code = 55398-2) [facility] CenterSTROKE Protocol - Transthoracic echo (TTE) 2022-04-14 22:07:33 Test Item Value Reference Range Interpretation Comments Height (test code = in 9693081388) Weight (test code = lbs 6126540175) Systolic BP (test code = mmHg 6650491889) Diastolic BP (test code mmHg = 2673431030) Heart Rate (test code = bpm 2724349259) BSA (test code = 1.94 m2 9190274086) TASV (test code = 15.5 cm/s 0974473257) LVIDD (test code = 6.00 cm 1762880608) Left Ventricular End 183.0 mL Diastolic Volume by Teichholz Method (test code = 2672323) IVS (test code = 1.09 cm 1009044156) Interventricular Septum 1.09 cm Diastolic Thickness by 2D (test code = 2691017) LVPWD (test code = 0.94 cm 1165186438) PW (test code = 0.94 cm 0.6-1.0 4170706708) EF(Teich) (test code = 40.30 % 8067155781) LVIDS (test code = 4.80 cm 6220380602) Left Ventricular End 109.2 mL Systolic Volume by Teichholz Method (test code = 0735342) FS (test code = 20 % 4954883369) EF - 2D (test code = 40.30 % 94627828) LVOT diameter (test code 2.05 cm = 5729274239) LVOT area (test code = 3.30 cm2 0760667671) Ao root diam (test code 3.10 cm = 7208743101) Aortic root (test code = 3.1 cm 2525576709) Ao root annulus (test 3.1 cm code = 7159998031) LA size (test code = 4.2 cm 4560228180) LAV(MOD-sp4) (test code 64.90 mL = 9798117737) MV Peak A Evette (test code 115.7 cm/s = 3632806942) E wave decelartion time 0.15 s (test code = 1137035905) MV Peak E Evette (test code 106.2 cm/s = 4480463197) E/A ratio (test code = ratio 1474723938) LVOT stroke volume (test 48.30 cm3 code = 1740177993) LVOT peak evette (test code 78.4 cm/s = 4216813964) LVOT mn grad (test code mmHg = 7291196797) AV LVOT peak gradient mmHg (test code = 8878053717) LVOT peak VTI (test code 14.7 cm = 5476565621) LV V1 mean (test code = 51.40 cm/s 4905530216) Ao peak evette (test code = 154.7 cm/s 0622803263) AV area peak evette (test 1.7 cm2 code = 6845101085) Ao max PG (test code = 9.60 mm[Hg] 3060522504) AV peak gradient (test mmHg code = 9390952649) AV regurgitation 257.3 ms pressure 1/2 time (test code = 6193431815) AI dec slope (test code 498.10 cm/s2 = 9795644763) AI max evette (test code = 437.60 cm/s 8229986983) AI max PG (test code = 77.80 mm[Hg] 3405603707) Tapse (test code = 2.19 cm 7547810257) LA Volume Index (BP) 32.0 mL/m2 (test code = 1524460496) LA volume (BP) (test 62.1 mL code = 7303886929) LAV(MOD-sp2) (test code 52.70 mL = 1524098038) A4C EF (test code = 44.80 % 0855478253) EF(sp4-el) (test code = 45.20 % 7698426235) SV(MOD-sp4) (test code = 71.20 mL 2282909085) SV(sp4-el) (test code = 73.90 mL 8568310981) LV Diastolic Volume (BP) 146.3 mL (test code = 5283936478) A2C EF (test code = 52.00 % 8269321359) EF(MOD-bp) (test code = 46.70 % 8414736834) EF(sp2-el) (test code = 52.40 % 8948965328) LV Systolic Volume (BP) 77.9 mL (test code = 4846037566) SV(MOD-bp) (test code = 68.40 mL 0414440991) SV(MOD-sp2) (test code = 69.20 mL 5901148248) EF (test code = 6641000949) Left Ventricular Stroke 68.4 mL Volume by 2-D Biplane-MOD (test code = 5741942) Radiology Study observation (narrative) (test code = 48837-8) LYNDSAY (test code = LYNDSAY) ?Left?Ventricle: Left [...] used and saline contrast was performed. [facility] CenterKEPPRA (LEVETIRACETAM)2022-04-14 16:48:36 Test Item Value Reference Range Interpretation Comments KEPPRA (test code = 12-46 L 7841426086) LYNDSAY (test code = LYNDSAY) Therapeutic range: 12-46 ?g/mL ? ?Toxic: Not well established.Test developed and characteristics determined by [facility] Laboratory Services. Lab Interpretation Abnormal (test code = 52994-4) [facility] Metabolic Panel (Na, K, Cl, CO2, Glucose, BUN, Creatinine, Ca)2022-04-14 10:50:11 Test Item Value Reference Range Interpretation Comments NA (test code = 136 mmol/L 135-145 6150241867) K (test code = 3.8 mmol/L 3.5-5 1530519223) CL (test code = 105 mmol/L 98-108 3554294993) CO2 TOTAL (test code = 25 mmol/L 23-31 7810314351) AGAP (test code = 2-16 0985118467) BUN (test code = 9 mg/dL 7-23 2661212038) GLUCOSE (test code = 101 mg/dL 70-110 2793385446) CREATININE (test code = 0.66 mg/dL 0.5-1.04 6973815157) CALCIUM (test code = 8.1 mg/dL 8.6-10.6 L 5431239053) eGFR (test code = mL/min/1.73m2 8264993579) LYNDSAY (test code = LYNDSAY) Association of [...] tests). Lab Interpretation Abnormal (test code = 85962-4) [facility]2022-09-26 10:50:11 Test Item Value Reference Range Interpretation Comments MAGNESIUM (test code = 9174665635) 1.9 mg/dL 1.7-2.4 Lab Interpretation (test code = Normal 20397-3) [facility] CenterThyroid Stimulating Iorqpid0833-13-14 22:21:44 Test Item Value Reference Range Interpretation Comments TSH (test code = See_Comment Biotin has been 8960866108) reported to cau se a negative bias, interpret resul ts relative to pat radha's use of biotin. [Automated mess age] The system [employer] generated this result transmitted ref erence range: 0.45 - 4 .70 mIU/L. The refe rence range was not u sed to interpret this result as normal/abnor mal. Lab Interpretation (test Normal code = 23646-7) [facility] CenterGLYCOSYLATED HEMOGLOBIN (A1C)2022-04-13 21:53:43 Test Item Value Reference Range Interpretation Comments HGB A1C (test code = 5.8 % 4-5.7 H 4548-4) LYNDSAY (test code = LYNDSAY) Reference RangesNormal: <5.7%Prediabetes: 5.7 - 6.4%Diabetes: > 6.5% Lab Interpretation (test Abnormal code = 55704-6) [facility] CenterFASTING LIPID PANEL (17481)(TOTAL CHOLESTEROL, TRIGLYCERIDES, HDL)2022-04-13 21:34:53 Test Item Value Reference Range Interpretation Comments CHOL (test code = 201 mg/dL 120-200 H 1640349255) HDL (test code = 56 mg/dL See_Comment [Automated message] 6058413170) The system [employer] generated this result transmit sherice reference range : >=50. The refer ence range was not u sed to interpret th is result as normal/abnormal . HDLC RATIO (test code = See_Comment [Au tomated message] 0786943365) The system [employer] generated this result transmit sherice reference range : <=4.5. The refe rence range was not u sed to interpret th is result as normal/abnormal . TRIG (test code = 355 mg/dL 30-170 H 9554659014) LDL CHOL (test code = 74 mg/dL See_Comment [Auto mated message] 91106-1) The system [employer] generated this result transmit sherice reference range : <=160. The refe rence range was not u sed to interpret th is result as normal/abnormal . VLDL (test code = 71 mg/dL 5-60 H 4572486067) Lab Interpretation (test Abnormal code = 87186-7) [facility] CenterTroponin I - Code [id number] 18:46:27 Test Item Value Reference Interpretation Comments Range TROPONIN I (test 0.013 ng/mL See_Comment [Automated code = 1724510783) message] The system which generated this result [...] biotin. Lab Interpretation Normal (test code = 47741-2) [facility] CenterB[facility] Metabolic Panel (NA, K, CL, CO2, Glucose, BUN, Creatinine, CA) - Code [id number] 18:35:07 Test Item Value Reference Range Interpretation Comments NA (test code = 136 mmol/L 135-145 0137806059) K (test code = 4.3 mmol/L 3.5-5 0511613215) CL (test code = 105 mmol/L 98-108 4053396068) CO2 TOTAL (test code = 27 mmol/L 23-31 9776727439) AGAP (test code = 2-16 9135650575) BUN (test code = 8 mg/dL 7-23 1635187318) GLUCOSE (test code = 130 mg/dL 70-110 H 8754401799) CREATININE (test code = 0.75 mg/dL 0.5-1.04 8422072071) CALCIUM (test code = 8.5 mg/dL 8.6-10.6 L 9942354395) eGFR (test code = mL/min/1.73m2 9183771939) LYNDSAY (test code = LYNDSAY) Association of [...] tests). Lab Interpretation Abnormal (test code = 56964-9) [facility] CenteraPTT - Code [id number] 18:32:46 Test Item Value Reference Range Interpretation Comments APTT Patient (test See_Comment [Automat ed code = 3173-2) message] The system which generated this result transmitted reference range : 23 - 38 Seconds . The reference range was not used to interpr et this result as normal/abnormal . LYNDSAY (test code = LYNDSAY) The [facility] patient population mean normal value for aPTT is 30 seconds. Lab Interpretation Normal (test code = 07556-9) [facility] CenterProthrombin Time / INR - Code [id number] 18:30:45 Test Item Value Reference Range Interpretation Comments PROTIME PATIENT (test See_Comment [Auto mated message] code = 5964-2) The system [employer] generated this result transmitted ref erence range: 12.0 - 1 4.7 Seconds. The re ference range was not u sed to interpret this result as normal/abnor mal. INR (test code = 6301-6) Nor mal INR <1.1; Warfarin Therap eutic range 2.0 to 3. 0 or 2.5 to 3.5, dep ending upon the indica tions. Lab Interpretation (test Normal code = 02910-8) [facility] without Diff - Code [id number] 18:23:07 Test Item Value Reference Range Interpretation Comments WBC (test code = 6690-2) See_Comment [A utomated message] The system [employer] generated this result transmit sherice reference range : 4.30 - 11.10 10*3/?L. The reference range was not used to interpret this result as normal/abnormal . RBC (test code = 789-8) See_Comment [Au tomated message] The system [employer] generated this result transmit sherice reference range [...] See_Comment H [Au tomated message] The system [employer] generated this result transmit sherice reference range : 166 - 358 10*3/?L. The reference range was not used to interpret this result as normal/abnormal . MPV (test code = 8.1 fL 9.5-12.9 L 62419-0) RDW-CV (test code = 16.1 % 12-15.5 H 788-0) RDW-SD (test code = 49.2 fL 39-49.9 25664-6) NRBC x10^3 (test code = See_Comment [Au tomated message] 3137847099) The system [employer] generated this result transmit sherice reference range : 10*3/?L. The reference range was not used to interpret this result as normal/abnormal . NRBC/100 WBC (test code See_Comment [Au tomated message] = 2699314365) The system [employer] generated this result transmit sherice reference range : 0.0 - 10.0 /100 WBC s. The reference r zoe was not used to interpret this result as normal/abnormal . IPF % (test code = 8020058745) Lab Interpretation (test Abnormal code = 03734-4) [facility] CenterTROPONIN [id number] 21:06:40 Test Item Value Reference Interpretation Comments Range TROPONIN I (test 0.005 ng/mL See_Comment [Automated code = 2717031430) message] The system which generated this result [...] biotin. Lab Interpretation Normal (test code = 56429-3) [facility] CenterCOMP. METABOLIC PANEL (84246)2021-11-23 20:55:42 Test Item Value Reference Range Interpretation Comments NA (test code = 137 mmol/L 135-145 5717969989) K (test code = 4.3 mmol/L 3.5-5.0 1592140184) CL (test code = 104 mmol/L 98-108 7449446952) CO2 TOTAL (test code = 22 mmol/L 23-31 L 9951749690) AGAP (test code = 2-16 5631851326) BUN (test code = 15 mg/dL 7-23 8081829167) GLUCOSE (test code = 114 mg/dL 70-110 H 3358457637) CREATININE (test code = 0.68 mg/dL 0.50-1.04 1751115986) TOTAL BILI (test code = 0.5 mg/dL 0.1-1.5 4198286332) CALCIUM (test code = 9.1 mg/dL 8.6-10.6 7959077868) T PROTEIN (test code = 7.3 g/dL 6.3-8.2 4825881039) ALBUMIN (test code = 4.4 g/dL 3.5-5.0 1609720266) ALK PHOS (test code = 243 U/L 34-122 H 1488018355) ALTv (test code = 24 U/L 5-35 1742-6) AST(SGOT) (test code = 30 U/L 13-40 6269206128) eGFR (test code = mL/min/1.73m2 6088153882) LYNDSAY (test code = LYNDSAY) Association of [...] tests). Lab Interpretation Abnormal (test code = 95697-3) [facility] CenterLIPASE2022-05-07 20:55:22 Test Item Value Reference Range Interpretation Comments LIPASE (test code = 5959132785) 96 U/L 0-220 Lab Interpretation (test code = Normal 17298-7) [facility] CenterPOCT [id number] 20:46:00 Test Item Value Reference Range Interpretation Comments POCT PREG (test code = 1605) negative On board controls acceptable with present C Line (test code = 3574) POCT PREG LOT # (test code = 3575) [id number] POCT PREG TEST DATE (test 04/18/2023 code = 3576) Lab Interpretation (test code = Normal 53873-4) [facility] CenterCBC WITH [id number] 20:40:38 Test Item Value Reference Range Interpretation Comments WBC (test code = See_Comment [Automated 1790-2) message] The sy stem which generated this result transmitted reference range : 4.30 - 11.10 10*3/?L. The reference range was not used to interpret this result as normal/abnormal . RBC (test code = See_Comment [Automated 539-8) message] The sy stem which generated this [...] (test code = 53.7 fL 39.0-49.9 H 97523-3) RDW-CV (test code = 17.2 % 12.0-15.5 H 788-0) PLT (test code = See_Comment H [Automated 777-3) message] The sy stem which generated this result transmitted reference range : 166 - 358 10*3/ ?L. The reference r zoe was not used to interpret this result as normal/abnormal . MPV (test code = 8.5 fL 9.5-12.9 L 80551-0) NRBC/100 WBC (test See_Comment [Automat ed code = 4737618762) message] The system which generated this result transmitted reference range : 0.0 - 10.0 /100 WBCs. The refer ence range was not u sed to interpret th is result as normal/abnormal . NRBC x10^3 (test code <0.01 See_Comment [Auto mated = 0337203665) message] The s ystem which generated this result transmitted reference range : 10*3/?L. The reference range was not used to interpret this result as normal/abnormal . GRAN MAT (NEUT) % 53.7 % (test code = 770-8) IMM GRAN % (test code 0.90 % = 7096449787) LYMPH % (test code = 32.6 % 736-9) MONO % (test code = 10.1 % 5905-5) EOS % (test code = 1.5 % 713-8) BASO % (test code = 1.2 % 706-2) GRAN MAT x10^3(ANC) 4.98 10*3/uL 1.88-7.09 (test code = 5104421141) IMM GRAN x10^3 (test 0.08 10*3/uL 0.00-0.06 H code = 3257175735) LYMPH x10^3 (test code 3.02 10*3/uL 1.32-3.29 = 731-0) MONO x10^3 (test code 0.94 10*3/uL 0.33-0.92 H = 742-7) EOS x10^3 (test code = 0.14 10*3/uL 0.03-0.39 711-2) BASO x10^3 (test code 0.11 10*3/uL 0.01-0.07 H = 704-7) Lab Interpretation Abnormal (test code = 50108-4) [facility] CenterPOCT GLUCOSE (AUTOMATED)2021-11-23 20:17:33 Test Item Value Reference Range Interpretation Comments POCT GLU (test code = 111 mg/dL 70-110 H Notifi ed Provider [id number]) Lab Interpretation (test Abnormal code = 66459-3) [facility] CenterPAP TEST, THINPREP, [id number] 00:00:00 Test Item Value Reference Range Interpretation Comments SOURCE: (test code = Endocervical 8001) SLIDES: (test code = 1 8011) LMP: (test code = 8021) 06/03/2021 SPECIMEN ADEQUACY: (test (NOTE) code = 62408) INTERPRETATION: (test ASCUS/EPITH. code = 73552) ABNORMALITY; SEE BELOW ASSISTANT OCEANOGRAPHER: (test Anusha code = 8101) CHANA Sepulveda(ASCP)[facility] PATHOLOGIST Nahid Russell, INTERPRETATION BY: (test M.D. code = 8122) LOCATION: (test code = (NOTE) 22015) CPT: (test code = 8140) (NOTE) PAP TEST, THINPREP, [id number] 00:00:00 Test Item Value Reference Range Interpretation Comments SOURCE: (test code = Endocervical 8001) SLIDES: (test code = 1 8011) LMP: (test code = 8021) 06/03/2021 SPECIMEN ADEQUACY: (test (NOTE) code = 09329) INTERPRETATION: (test ASCUS/EPITH. code = 58081) ABNORMALITY; SEE BELOW ASSISTANT OCEANOGRAPHER: (test Anusha code = 8101) CHANA Sepulveda(ASCP)[facility] PATHOLOGIST Nahid Russell, INTERPRETATION BY: (test M.D. code = 8122) LOCATION: (test code = (NOTE) 87208) CPT: (test code = 8140) (NOTE) PAP TEST, THINPREP, [id number] 00:00:00 Test Item Value Reference Range Interpretation Comments SOURCE: (test code = Endocervical 8001) SLIDES: (test code = 1 8011) LMP: (test code = 8021) 06/03/2021 SPECIMEN ADEQUACY: (test (NOTE) code = 88749) INTERPRETATION: (test ASCUS/EPITH. code = 28054) ABNORMALITY; SEE BELOW ASSISTANT OCEANOGRAPHER: (test Anusha code = 8101) CHANA Sepulveda(ASCP)[facility] Nahid Russell, INTERPRETATION BY: (test M.D. code = 8122) LOCATION: (test code = (NOTE) 25572) CPT: (test code = 8140) (NOTE) PAP TEST, THINPREP, [id number] 00:00:00 Test Item Value Reference Range Interpretation Comments SOURCE: (test code = Endocervical 8001) SLIDES: (test code = 1 8011) LMP: (test code = 8021) 06/03/2021 SPECIMEN ADEQUACY: (test (NOTE) code = 63120) INTERPRETATION: (test ASCUS/EPITH. code = 73165) ABNORMALITY; SEE BELOW ASSISTANT OCEANOGRAPHER: (test Anusha code = 8101) CHANA Sepulveda(ASCP)[facility] PATHOLOGIST Nahid Russell, INTERPRETATION BY: (test M.D. code = 8122) LOCATION: (test code = (NOTE) 61644) CPT: (test code = 8140) (NOTE) HPV HIGH RISK WITH GENOTYPE, [id number] 00:00:00 Test Item Value Reference Range Interpretation Comments HPV HIGH RISK INTERP (test code = POSITIVE 32112) HPV 16 (test code = 53032) POSITIVE HPV 18 (test code = 99810) NEGATIVE HPV, HR, OTHER GENOTYPES (test code POSITIVE = 95078) HPV HIGH RISK WITH GENOTYPE, [id number] 00:00:00 Test Item Value Reference Range Interpretation Comments HPV HIGH RISK INTERP (test code = POSITIVE 31286) HPV 16 (test code = 66913) POSITIVE HPV 18 (test code = 02308) NEGATIVE HPV, HR, OTHER GENOTYPES (test code POSITIVE = 61979) HPV HIGH RISK WITH GENOTYPE, [id number] 00:00:00 Test Item Value Reference Range Interpretation Comments HPV HIGH RISK INTERP (test code = POSITIVE 56274) HPV 16 (test code = 22417) POSITIVE HPV 18 (test code = 81567) NEGATIVE HPV, HR, OTHER GENOTYPES (test code POSITIVE = 32149) HPV HIGH RISK WITH GENOTYPE, [id number] 00:00:00 Test Item Value Reference Range Interpretation Comments HPV HIGH RISK INTERP (test code = POSITIVE 75591) HPV 16 (test code = 56830) POSITIVE HPV 18 (test code = 56281) NEGATIVE HPV, HR, OTHER GENOTYPES (test code POSITIVE = 44960) [id number] 03:22:48 Test Item Value Reference Range Interpretation Comments APPEARANCE (test code = Hazy Clear A 4505479023) COLOR (test code = Yellow Yellow 6037287215) PH (test code = 4.8-8.0 7176285364) SP GRAVITY (test code = 1.003-1.030 8514175126) GLU U QUAL (test code = Normal Normal 2170476715) BLOOD (test code = Negative Negative Interfere nce from 2711655404) ascorbic acid m ay cause false neg ative results. KETONES (test code = 5 mg/dL Negative A 9929993973) PROTEIN (test code = Negative Negative 2887-8) UROBILIN (test code = 4.0 mg/dL Normal A 2495129449) BILIRUBIN (test code = Negative Negative 5849926099) NITRITE (test code = Negative Negative 1518483080) LEUK GRUPO (test code = Negative Negative 5771809158) RBC/HPF (test code = See_Comment [Autom ated message] 9867949551) The system [employer] generated this result transmitted ref erence range: 0 - 3 HP F. The reference range was not used to int erpret this result as normal/abnormal . WBC/HPF (test code = <1 See_Comment [Autom ated message] 3658236425) The system [employer] generated this result transmitted ref erence range: 0 - 5 HP F. The reference range was not used to int erpret this result as normal/abnormal . BACTERIA (test code = Few Negative A 2936376637) SQ EPITH (test code = HPF 5268279788) Lab Interpretation Abnormal (test code = 83211-2) [facility] [id number] 03:22:48 Test Item Value Reference Range Interpretation Comments APPEARANCE (test code = Hazy Clear A 8221213840) COLOR (test code = Yellow Yellow 3324534989) PH (test code = 4.8-8.0 6900482491) SP GRAVITY (test code = 1.003-1.030 7025545305) GLU U QUAL (test code = Normal Normal 5966772710) BLOOD (test code = Negative Negative 9199260827) KETONES (test code = 5 mg/dL Negative A 7742393286) PROTEIN (test code = Negative Negative 2887-8) UROBILIN (test code = 4.0 mg/dL Normal A 1078464243) BILIRUBIN (test code = Negative Negative 4210236146) NITRITE (test code = Negative Negative 3128371010) LEUK GRUPO (test code = Negative Negative 2596634476) RBC/HPF (test code = See_Comment [Autom ated message] 9597844085) The system [employer] generated this result transmit sherice reference range : 0 - 3 HPF. The refe rence range was not u sed to interpret th is result as normal/abnormal . WBC/HPF (test code = <1 See_Comment [Autom ated message] 4498666439) The system [employer] generated this result transmit sherice reference range : 0 - 5 HPF. The refe rence range was not u sed to interpret th is result as normal/abnormal . BACTERIA (test code = Few Negative A 2900439009) SQ EPITH (test code = HPF 8103121090) Lab Interpretation (test Abnormal code = 39418-9) [facility] [id number] 02:45:00 Test Item Value Reference Interpretation Comments Range TROPONIN I (test 0.002 ng/mL See_Comment [Automated code = 9094251540) message] The system which generated this result [...] biotin. Lab Interpretation Normal (test code = 44032-6) [facility] [id number] 02:45:00 Test Item Value Reference Range Interpretation Comments TROPONIN I (test code = 0.002 ng/mL See_Comment [Au tomated 1302856376) message] The sy stem which generated this result transmitted reference range : <=0.034. The reference range was not used to interpret this result as normal/abnormal . LYNDSAY (test code = LYNDSAY) Lab Interpretation Normal (test code = 58769-4) [facility] [id number] 02:41:57 Test Item Value Reference Range Interpretation Comments NT-proBNP (test code 169 pg/mL See_Comment H [Autom ated = 5699360805) message] The system which generated this result transmitted reference range : <=125. The reference range was not used to interpret this result as normal/abnormal . LYNDSAY (test code = LYNDSAY) Biotin has been reported to cause a negative bias, interpret results relative to patient's use of biotin. Lab Interpretation Abnormal (test code = 29628-4) [facility] [id number] 02:41:57 Test Item Value Reference Range Interpretation Comments NT-proBNP (test code = 169 pg/mL See_Comment H [Aut omated message] 6538034616) The system whic h generated this result transmit sherice reference range : <=125. The refe rence range was not u sed to interpret th is result as normal/abnormal . LYNDSAY (test code = LYNDSAY) Lab Interpretation (test Abnormal code = 56984-1) [facility]. METABOLIC PANEL (54165)2021-03-17 02:09:13 Test Item Value Reference Range Interpretation Comments NA (test code = 137 mmol/L 135-145 3863134860) K (test code = 4.2 mmol/L 3.5-5.0 9703031379) CL (test code = 102 mmol/L 98-108 7151763130) CO2 TOTAL (test code = 25 mmol/L 23-31 0333943416) AGAP (test code = 2-16 1425631212) BUN (test code = 18 mg/dL 7-23 5124963959) GLUCOSE (test code = 144 mg/dL 70-110 H 6690296405) CREATININE (test code = 0.77 mg/dL 0.50-1.04 3176376212) TOTAL BILI (test code = 0.4 mg/dL 0.1-1.7 6201514805) CALCIUM (test code = 8.9 mg/dL 8.6-10.6 6462192325) T PROTEIN (test code = 6.8 g/dL 6.3-8.2 5868671760) ALBUMIN (test code = 3.9 g/dL 3.5-5.0 2990636602) ALK PHOS (test code = 84 U/L 34-122 2126563726) ALTv (test code = 13 U/L 5-35 1742-6) AST(SGOT) (test code = 17 U/L 13-40 1367770172) eGFR (test code = mL/min/1.73m2 5327421237) LYNDSAY (test code = LYNDSAY) Association of [...] tests). Lab Interpretation Abnormal (test code = 89937-3) [facility] METABOLIC PANEL (85679)2021-03-17 02:09:13 Test Item Value Reference Range Interpretation Comments NA (test code = 5151807779) 137 mmol/L 135-145 K (test code = 7748032978) 4.2 mmol/L 3.5-5.0 CL (test code = 8027863541) 102 mmol/L 98-108 CO2 TOTAL (test code = 0193531866) 25 mmol/L 23-31 AGAP (test code = 2485842596) 2-16 BUN (test code = 6777623884) 18 mg/dL 7-23 GLUCOSE (test code = 0260567373) 144 mg/dL 70-110 H CREATININE (test code = 0.77 mg/dL 0.50-1.04 4886968661) TOTAL BILI (test code = 0.4 mg/dL 0.1-1.6 7303740618) CALCIUM (test code = 9640281786) 8.9 mg/dL 8.6-10.6 T PROTEIN (test code = 4335381317) 6.8 g/dL 6.3-8.2 ALBUMIN (test code = 0469089394) 3.9 g/dL 3.5-5.0 ALK PHOS (test code = 7844805066) 84 U/L 34-122 ALTv (test code = 1742-6) 13 U/L 5-35 AST(SGOT) (test code = 2899424191) 17 U/L 13-40 eGFR (test code = 0092648608) mL/min/1.73m2 LYNDSAY (test code = LYNDSAY) Lab Interpretation (test code = Abnormal 79779-9) [facility] WITH [id number] 01:56:33 Test Item Value Reference Range Interpretation Comments WBC (test code = See_Comment H [Automated 6023-2) message] The sy stem which generated this result transmitted reference range : 4.30 - 11.10 10*3/?L. The reference range was not used to interpret this result as normal/abnormal . RBC (test code = See_Comment [Automated 519-8) message] The sy stem which generated this [...] (test code = 55.5 fL 39.0-49.9 H 73225-7) RDW-CV (test code = 18.9 % 12.0-15.5 H 788-0) PLT (test code = See_Comment H [Automated 777-3) message] The sy stem which generated this result transmitted reference range : 166 - 358 10*3/ ?L. The reference r zoe was not used to interpret this result as normal/abnormal . MPV (test code = 8.2 fL 9.5-12.9 L 18842-0) NRBC/100 WBC (test See_Comment [Automat ed code = 1820179285) message] The system which generated this result transmitted reference range : 0.0 - 10.0 /100 WBCs. The refer ence range was not u sed to interpret th is result as normal/abnormal . NRBC x10^3 (test code <0.01 See_Comment [Auto mated = 3958978611) message] The s ystem which generated this result transmitted reference range : 10*3/?L. The reference range was not used to interpret this result as normal/abnormal . GRAN MAT (NEUT) % 61.7 % (test code = 770-8) IMM GRAN % (test code 0.80 % = 8792730418) LYMPH % (test code = 28.5 % 736-9) MONO % (test code = 6.3 % 5905-5) EOS % (test code = 1.8 % 713-8) BASO % (test code = 0.9 % 706-2) GRAN MAT x10^3(ANC) 7.31 10*3/uL 1.88-7.09 H (test code = 7148161588) IMM GRAN x10^3 (test 0.09 10*3/uL 0.00-0.06 H code = 2191413179) LYMPH x10^3 (test code 3.38 10*3/uL 1.32-3.29 H = 731-0) MONO x10^3 (test code 0.75 10*3/uL 0.33-0.92 = 742-7) EOS x10^3 (test code = 0.21 10*3/uL 0.03-0.39 711-2) BASO x10^3 (test code 0.11 10*3/uL 0.01-0.07 H = 704-7) Lab Interpretation Abnormal (test code = 95436-4) [facility] WITH [id number] 01:56:33 Test Item Value Reference Range Interpretation [...] (test code = 55.5 fL 39.0-49.9 H 04419-0) RDW-CV (test code = 18.9 % 12.0-15.5 H 788-0) PLT (test code = See_Comment H [Automated 777-3) message] The sy stem which generated this result transmitted reference range : 166 - 358 10*3/ ?L. The reference r zoe was not used to interpret this result as normal/abnormal . MPV (test code = 8.2 fL 9.5-12.9 L 29287-6) NRBC/100 WBC (test See_Comment [Automat ed code = 1250600029) message] The system which generated this result transmitted reference range : 0.0 - 10.0 /100 WBCs. The refer ence range was not u sed to interpret th is result as normal/abnormal . NRBC x10^3 (test code <0.01 See_Comment [Auto mated = 2787575645) message] The s ystem which generated this result transmitted reference range : 10*3/?L. The reference range was not used to interpret this result as normal/abnormal . GRAN MAT (NEUT) % 61.7 % (test code = 770-8) IMM GRAN % (test code 0.80 % = 3346477038) LYMPH % (test code = 28.5 % 736-9) MONO % (test code = 6.3 % 5905-5) EOS % (test code = 1.8 % 713-8) BASO % (test code = 0.9 % 706-2) GRAN MAT x10^3(ANC) 7.31 10*3/uL 1.88-7.09 H (test code = 2894998514) IMM GRAN x10^3 (test 0.09 10*3/uL 0.00-0.06 H code = 0193402014) LYMPH x10^3 (test code 3.38 10*3/uL 1.32-3.29 H = 731-0) MONO x10^3 (test code 0.75 10*3/uL 0.33-0.92 = 742-7) EOS x10^3 (test code = 0.21 10*3/uL 0.03-0.39 711-2) BASO x10^3 (test code 0.11 10*3/uL 0.01-0.07 H = 704-7) Lab Interpretation Abnormal (test code = 64046-4) [facility] (ID NOW RAPID TESTING)2021-03-17 01:38:12 Test Item Value Reference Range Interpretation Comments SARS-CoV-2 Rapid ID NOW Not Detected Not Detected (test code = 36198-6) LYNDSAY (test code = LYNDSAY) ID NOW COVID-19 Assay is an isothermal nucleic acid amplification test intended for the qualitative detection of nucleic acid from SARS-CoV-2 viral RNA in nasopharyngeal (INFORMATION ASSURANCE ANALYST) specimens. It is used under Emergency Use Authorization (EUA) by [facility]. The limit of detection (LOD) of the [...] indicated. Lab Interpretation Normal (test code = 47591-0) [facility]-19 (ID NOW RAPID TESTING)2021-03-17 01:38:12 Test Item Value Reference Range Interpretation Comments SARS-CoV-2 Rapid ID NOW (test Not Detected Not Detected code = 07334-0) LYNDSAY (test code = LYNDSAY) Lab Interpretation (test code = Normal 68583-4) [facility]-19 (ID NOW RAPID TESTING)2021-02-19 17:42:45 Test Item Value Reference Range Interpretation Comments SARS-CoV-2 Rapid ID NOW Not Detected Not Detected (test code = 36559-5) LYNDSAY (test code = LYNDSAY) ID NOW COVID-19 Assay is an isothermal nucleic acid amplification test intended for the qualitative detection of nucleic acid from SARS-CoV-2 viral RNA in nasopharyngeal (INFORMATION ASSURANCE ANALYST) specimens. It is used under Emergency Use Authorization (EUA) by [facility]. The limit of detection (LOD) of the [...] indicated. Lab Interpretation Normal (test code = 40063-8) [facility] ABDOMEN PELVIS W [id number] 17:24:55Thickening of the gastric antrum and duodenal [...] 02/19/2021 12:26 PM CDT Patient name: EUSEBIA TURNERB: 1970 51 years [...] nodularity of the left adrenal gland.RL: 8722 [facility] [id number] 17:03:40 Test Item Value Reference Range Interpretation Comments APPEARANCE (test code = Hazy Clear A 8532798658) COLOR (test code = Mabel Yellow A 8741308041) PH (test code = 4.8-8.0 7020642178) SP GRAVITY (test code = 1.003-1.030 H 9139319457) GLU U QUAL (test code = Normal Normal 1353944836) BLOOD (test code = Negative Negative 9005612680) KETONES (test code = 5 mg/dL Negative A 9119343892) PROTEIN (test code = 30 mg/dL Negative A 2887-8) UROBILIN (test code = 4.0 mg/dL Normal A 7177303004) BILIRUBIN (test code = 4 mg/dL Negative A 3797075780) NITRITE (test code = Negative Negative 4549840817) LEUK GRUPO (test code = Negative Negative 9692186173) RBC/HPF (test code = See_Comment H [Autom ated message] 2593190362) The system [employer] generated this result transmit sherice reference range : 0 - 3 HPF. The refe rence range was not u sed to interpret th is result as normal/abnormal . WBC/HPF (test code = See_Comment H [Autom ated message] 3498339280) The system [employer] generated this result transmit sherice reference range : 0 - 5 HPF. The refe rence range was not u sed to interpret th is result as normal/abnormal . BACTERIA (test code = Few Negative A 5837271194) MUCOUS (test code = Moderate Negative LPF A 0549517122) SQ EPITH (test code = HPF 5521460324) CA OXALATE (test code = See_Comment H [Au tomated message] 9234858683) The system [employer] generated this result transmit sherice reference range : <=1 HPF. The refere nce range was not u sed to interpret th is result as normal/abnormal . Ictotest (test code = Negative 2943143677) Lab Interpretation (test Abnormal code = 37256-7) [facility] Metabolic [id number] 16:34:55 Test Item Value Reference Range Interpretation Comments NA (test code = 139 mmol/L 135-145 4809191448) K (test code = 4.3 mmol/L 3.5-5.0 9183511367) CL (test code = 105 mmol/L 98-108 7507407153) CO2 TOTAL (test code 26 mmol/L 23-31 = 3075514478) AGAP (test code = 2-16 5466371184) BUN (test code = 11 mg/dL 7-23 1564796045) GLUCOSE (test code = 95 mg/dL 70-110 1288189726) CREATININE (test code 0.70 mg/dL 0.50-1.04 = 7767207161) TOTAL BILI (test code 0.6 mg/dL 0.1-1.1 = 5941476772) CALCIUM (test code = 8.9 mg/dL 8.6-10.6 6517150163) T PROTEIN (test code 7.7 g/dL 6.3-8.2 = 4183134174) ALBUMIN (test code = 4.1 g/dL 3.5-5.0 8639948904) ALK PHOS (test code = 79 U/L 34-122 0309977906) ALTv (test code = 10 U/L 5-35 1742-6) AST(SGOT) (test code 22 U/L 13-40 = 0420274948) eGFR (test code = mL/min/1.73m2 1105909730) LYNDSAY (test code = LYNDSAY) Association of [...] urine or abnormalities in imaging tests). [facility] CenterLip[facility], [id number] 16:34:14 Test Item Value Reference Range Interpretation Comments LIPASE (test code = 5461934698) 45 U/L 0-220 Lab Interpretation (test code = Normal 35410-4) [facility] with [id number] 16:21:12 Test Item Value Reference Range Interpretation [...] (test code = 54.4 fL 39.0-49.9 H 51148-4) RDW-CV (test code = 18.3 % 12.0-15.5 H 788-0) PLT (test code = See_Comment H [Automated 777-3) message] The sy stem which generated this result transmitted reference range : 166 - 358 10*3/ ?L. The reference r zoe was not used to interpret this result as normal/abnormal . MPV (test code = 8.5 fL 9.5-12.9 L 88414-7) NRBC/100 WBC (test See_Comment [Automat ed code = 3017906205) message] The system which generated this result transmitted reference range : 0.0 - 10.0 /100 WBCs. The refer ence range was not u sed to interpret th is result as normal/abnormal . NRBC x10^3 (test code <0.01 See_Comment [Auto mated = 3920936927) message] The s ystem which generated this result transmitted reference range : 10*3/?L. The reference range was not used to interpret this result as normal/abnormal . GRAN MAT (NEUT) % 78.3 % (test code = 770-8) IMM GRAN % (test code 0.40 % = 0254135886) LYMPH % (test code = 15.4 % 736-9) MONO % (test code = 4.8 % 5905-5) EOS % (test code = 0.1 % 713-8) BASO % (test code = 1.0 % 706-2) GRAN MAT x10^3(ANC) 7.15 10*3/uL 1.88-7.09 H (test code = 9436223032) IMM GRAN x10^3 (test 0.04 10*3/uL 0.00-0.06 code = 3270145424) LYMPH x10^3 (test code 1.41 10*3/uL 1.32-3.29 = 731-0) MONO x10^3 (test code 0.44 10*3/uL 0.33-0.92 = 742-7) EOS x10^3 (test code = <0.03 0.03-0.39 L 711-2) BASO x10^3 (test code 0.09 10*3/uL 0.01-0.07 H = 704-7) Lab Interpretation Abnormal (test code = 26348-7) [facility]
[2022-12-01 18:53] LABS: ALT/SGPT 20 U/L (13-56); AST/SGOT 17 U/L (15-37); Albumin 3.6 g/dL (3.4-5.0); Alkaline Phosphatase 81 U/L (45-117); BUN Blood Urea Nitrogen 12 mg/dL (7-18); Bicarbonate 22 mEq/L (21-32); Bilirubin Direct 0.2 mg/dL (0-0.2); Bilirubin Indirect, Calculated 0.2 mg/dL (0.2-0.8); Bilirubin Total 0.4 mg/dL (0.2-1.0); Glomerular Filtration Rate 73 ml/min (=/>90); Glucose Level 88 mg/dL (74-106); Potassium 3.7 mEq/L (3.5-5.1); Protein, Total 6.9 g/dL (6.4-8.2); Sodium Level 139 mEq/L (136-145)
[2022-12-01 19:03] LABS: Protime INR 1.05
[2022-12-01 19:08] LABS: Absolute Lymphocytes (CBC) 2.3 K/uL (0.7-4.9); Hematocrit 37.4 % (36.0-45.0); Lymphocytes % 34.5 % (15.3-44.8); MCV 78.7 fL (80-100); MPV 6.9 fL (7.6-11.3); RBC Red Blood Cell Count 4.75 M/uL (3.86-4.86)
--- NOTE | 2022-12-01 19:26 | RAD REPORT ---
EXAM DESCRIPTION: CT - Head C Spine Cap W Con - 12/01/2022 7:15 pm CLINICAL HISTORY: Trauma, head and neck injury. Chest, abdomen and pelvis pain. seizure, fall down stairs COMPARISON: Head C Spine Cap Wo Con dated 06/25/2022; Head C Spine Cap Wo Con dated 05/04/2022; Head C Spine Cap W Con dated 01/30/2021 TECHNIQUE: CT head without contrast. CT cervical spine without contrast with coronal and sagittal reformatted images. CT chest, abdomen and pelvis with IV contrast (approximately 100 mL nonionic IV contrast) with hays l and sagittal reformatted images of the spine. All CT scans are performed using dose optimization technique as appropriate and may include automated exposure control or mA/KV adjustment according to patient size. FINDINGS: CT HEAD WITHOUT CONTRAST: No intracranial hemorrhage, hydrocephalus or extra-axial fluid collection. No areas of brain edema o r midline shift. The paranasal sinuses and mastoids are clear. The calvarium is intact. CT CERVICAL SPINE WITHOUT CONTRAST: No fracture or subluxation. Postsurgical fusion is present lower cervical spine with hardware place. The prevertebral soft tissues are normal in thickness. CT CHEST, ABDOMEN, PELVIS WITH CONTRAST: The lungs are clear.No pneumothorax or pericardial/pleural fluid. No evidence of intra-abdominal visceral injury, free fluid or free air. 3 cm left adrenal mass. Bianca cystectomy. No concerning pelvic findings. No fractures. Moderate lower lumbar degenerative changes. IMPRESSION: Negative for acute traumatic findings. 3 cm left adrenal mass. This may represent an adenoma. Nonemergent MRI adrenal protocol followup henrique lyle be advised.
[2022-12-01] MEDS ORDERED: METHOCARBAMOL 1,000 MG/10 ML VIAL ONE (20:26)
[2022-12-01] MEDS ORDERED: METOCLOPRAMIDE 10 MG/2mL INJ ONE (20:26)
[2022-12-01] MEDS ORDERED: NA CHLORIDE 0.9% 100 ML ONE (20:27)
[2022-12-01] MEDS ORDERED: KETOROLAC 30 MG/ML INJ ONE (20:27)
[2022-12-01] MEDS ORDERED: ONDANSETRON 4 MG/2 ML VIAL ONE (20:27)
[2022-12-01] MEDS ORDERED: PHENYTOIN ER 100 MG CAP PO ONE (20:32)
--- NOTE | 2022-12-01 21:03 | EDPHYS ---
Physician Documentation [facility] Name: Heather Coon Age: 52 yrs Sex: Female : 1970 Arrival Date: 12/01/2022 Time: 17:34 Bed 2 Private MD: ED Physician Norbert Fisher HPI: 12/01 17:55 This 52 yrs old Female presents to ER via EMS with complaints of Probable Seizure. 17:55 Patient is a 52-year-old female with known seizure disorder, COPD, CHF who returns to the emergency department after being seen earlier today via EMS with reported to multiple seizures. Patient reports over the last several days she has had an increase in seizure and today she has reported at least 5 seizures. She reports after having a seizure couple days ago while going upstairs in her home she awoke at the bottom of the staircase. She did not get evaluated after this incident and presents a second time today with complaints of headache back pain. Upon questioning patient reports that the earlier visit she was given Keppra and reports that Keppra does not control her seizures and so she refuses to take previously prescribed Keppra. Patient reports she has seen Dr. Green in the past for her seizures but has not had any recent follow-up. She reports she is not currently taking any prescribed seizure meds and uses illegal marijuana for seizure control. Historical: - Allergies: 17:48 fluoxetine; ap3 17:48 Green Tea; ap3 17:48 Keppra; not an allergy, pt reports continued seizures while taking medication; ap3 - PMHx: 17:48 Anxiety; Bipolar disorder; Cancer-Cervical; Chronic obstructive lung disease; Chronic ap3 pain; Congestive heart failure; Depression; Diverticulitis; Herniated Back Disc; Hypertension; intestinal mass; Myocardial infarction; pt reports hx of seizures; Spastic Muscles; stroke; - PSHx: 17:48 cervical fusion; Cholecystectomy; foot; Tonsillectomy; ap3 - Social history:: Patient uses street drugs, marijuana, Smoking status: unknown. ROS: 18:00 Constitutional: Negative for body aches, chills, fever, poor PO intake. cp 18:00 Eyes: Negative for injury, pain, redness, and discharge. cp 18:00 ENT: Negative for drainage from ear(s), ear pain, sore throat, difficulty swallowing, difficulty handling secretions. 18:00 Cardiovascular: Negative for chest pain, palpitations. 18:00 Respiratory: Negative for cough, shortness of breath, wheezing. 18:00 Abdomen/GI: Negative for abdominal pain, vomiting, diarrhea, constipation. 18:00 Back: Positive for pain at rest, pain with movement. 18:00 MS/extremity: Negative for injury or acute deformity, decreased range of motion, paresthesias. 18:00 Neuro: Positive for headache, history of seizures, Negative for altered mental status. 18:00 All other systems are negative. Exam: 18:05 Head/Face: Normocephalic, atraumatic. cp 18:05 Constitutional: The patient appears in no acute distress, alert, awake, non-diaphoretic, non-toxic, well developed, well nourished. 18:05 Eyes: Periorbital structures: appear normal, Pupils: equal, round, and reactive to light and accomodation, Extraocular movements: intact throughout, Conjunctiva: normal, no exudate, no injection, Sclera: no appreciated abnormality. 18:05 ENT: External ear(s): are unremarkable, Ear canal(s): are normal, clear, TM's: dullness, bilaterally, Nose: is normal, Mouth: is normal, Posterior pharynx: is normal, airway is patent, no erythema, no exudate. 18:05 Neck: C-spine: vertebral tenderness, is not appreciated, crepitus, is not appreciated, ROM/movement: is normal, is supple, no range of motions limitations, no meningismus, no nuchal rigidity. 18:05 Chest/axilla: Inspection: normal. 18:05 Cardiovascular: Rate: tachycardic, Rhythm: regular, Edema: is not appreciated, JVD: is not appreciated. 18:05 Respiratory: the patient does not display signs of respiratory distress, Respirations: normal, no use of accessory muscles, no retractions, labored breathing, is not present, Breath sounds: are clear throughout, no decreased breath sounds, no stridor, no wheezing. 18:05 Abdomen/GI: Inspection: abdomen appears normal, Bowel sounds: active, all quadrants, Palpation: abdomen is soft and non-tender, in all quadrants. 18:05 Back: pain, that is moderate, ROM is painful, with all movement. 18:05 Musculoskeletal/extremity: Exam is negative for decreased range of motion, edema, injury. 18:05 Neuro: Orientation: to person, place \T\ time. Mentation: is normal, Cerebellar function: is grossly normal, Motor: moves all fours, strength is normal, Sensation: is normal. 19:28 ECG was reviewed by the Attending Physician. Vital Signs: 17:43 BP 106 / 81; Pulse 100; Pulse Ox 99% on R/A; ap3 17:55 Temp 98.8(O); Weight 120.2 kg; ap3 19:00 BP 128 / 75; Pulse 89; Resp 22; Pulse Ox 99% on R/A; ll3 20:00 ll3 21:00 ll3 20:00 Pt refused VS ll3 21:00 Pt refused VS ll3 Goldonna Coma Score: 17:49 Eye Response: spontaneous(4). Motor Response: obeys commands(6). Verbal Response: ap3 oriented(5). Total: 15. MDM: 17:57 Patient medically screened. cp 18:00 Differential diagnosis: cerebral vascular accident, drug overdose, cardiac arrhythmia, cp seizure. 20:10 ED course: consult with DR Ireland to discuss patient's concern with taking Keppra. Recommends starting Dilantin and give 1000 mg IV now and patient can take 300 mg before bedtime. 20:50 ED course: No observed and/or reported seizure activity while monitoring patient in ED. 20:55 Data reviewed: vital signs, nurses notes, lab test result(s), EKG, radiologic studies, cp CT scan. Consideration of Admission/Observation Escalation of care including admission/observation considered. ED course: VSS. Patient leaving ED prior to reevaluation after administration of medications. Patient refusing prescriptions for seizure medications. Will discharge to home for continued monitoring. Patient may return to ED at any time for reevaluation. 12/01 17:54 Order name: Acetaminophen; Complete Time: 18:57 cp 12/01 17:54 Order name: Basic Metabolic Panel; Complete Time: 18:57 cp 12/01 18:57 Interpretation: Normal except: CL 113; GFR 73. cp 12/01 17:54 Order name: CBC with Diff; Complete Time: 19:42 cp 12/01 19:53 Interpretation: Normal except: HGB 11.7; MCV 78.7; MCH 24.7; MCHC 31.4; PLT 463; RDW cp 17.5; MPV 6.9. 05 17:54 Order name: ETOH Level; Complete Time: 18:57 cp 15 17:54 Order name: Hepatic Function; Complete Time: 18:57 cp 12/01 17:54 Order name: PT-INR; Complete Time: 19:42 cp 15 17:54 Order name: Ptt, Activated; Complete Time: 19:42 cp 12/01 17:54 Order name: Salicylate; Complete Time: 18:57 cp 15 18:27 Order name: CT Traumagram (Head C Spine CAP W Con); Complete Time: 19:42 cp 12/01 17:54 Order name: EKG; Complete Time: 17:56 cp 12/01 17:54 Order name: EKG - Nurse/Tech; Complete Time: 19:34 cp 12/01 17:54 Order name: IV Saline Lock; Complete Time: 18:28 cp 12/01 17:54 Order name: Labs collected and sent; Complete Time: 18:29 cp 12/01 17:54 Order name: Suicide Screening ([place]); Complete Time: 18:29 cp 12/01 17:54 Order name: Seizure Precautions; Complete Time: 17:56 cp EC:28 Rate is 87 beats/min. Rhythm is regular. ME interval is normal. QRS interval is normal. cp QT interval is normal. T waves are Inverted in lead aVR. Interpreted by me. Reviewed by me. Administered Medications: 20:50 Discontinued: Methocarbamol IVPB 1 grams IVPB once over 1 hrs; (mix in NS 100 mL) ll3 18:56 CANCELLED (Physician Discretion): Ativan IVP 1 mg IVP once cp 20:03 CANCELLED (Physician Discretion): Diazepam IVP 2 mg IVP once cp 20:16 Not Given (Physician Discretion): metoCLOPramide IVP 10 mg IVP once; over 1 to 2 minutescp 20:38 Drug: Ondansetron IVP 4 mg Route: IVP; Site: left forearm; ll3 21:42 Follow up: Response: No adverse reaction ll3 20:40 Drug: Ketorolac IVP 15 mg Route: IVP; Site: right forearm; ll3 21:43 Follow up: Response: No adverse reaction ll3 20:40 Drug: Methocarbamol IVPB 1 grams Route: IVPB; Infused Over: 1 hrs; Site: right forearm; ll3 21:43 Follow up: Response: No adverse reaction ll3 20:40 Drug: Phenytoin Sodium Extended PO 1000 mg Route: PO; ll3 21:42 Follow up: Response: No adverse reaction ll3 20:50 Not Given (Duplicate Order): Phenytoin IVPB 1 grams IVPB once ll3 Disposition: 20:08 Co-signature as Attending Physician, Norbert MARIE was immediately available on-site ms3 in the Emergency Department for consultation in the care of the patient. Disposition Summary: 12/01/22 21:03 Discharge Ordered Location: Home cp Problem: chronic cp Symptoms: have improved cp Condition: Stable cp Diagnosis - Other seizures cp - Fall (on) (from) unspecified stairs and steps cp - Cervicalgia cp - Headache cp - Dorsalgia, unspecified cp Followup: cp - With: Javier Ireland MD - When: 1 - 2 days - Reason: seizure disorder Discharge Instructions: - Discharge Summary Sheet cp - Musculoskeletal Pain cp - Seizure, Adult cp - Neck Exercises cp Forms: - Medication Reconciliation Form cp - Thank You Letter cp - Antibiotic Education cp - Prescription Opioid Use cp Prescriptions: - Dilantin Kapseal 100 mg Oral Capsule - take 3 capsule by ORAL route At bedtime; 90 capsule; Refills: 0, Product cp Selection Permitted - methocarbamol 750 mg Oral Tablet - take 1 tablet by ORAL route 3 times per day; 30 tablet; Refills: 0, Product cp Selection Permitted Signatures: Dispatcher [employer] EDMS Derrick Castillo PA PA cp Freida Rodriguez RN RN ap3 Norbert Fisher DO DO ms3 William Rubio RN RN ll3 Corrections: (The following items were deleted from the chart) 18:56 18:03 Ativan IVP 1 mg IVP once ordered. cp cp 20:03 18:57 Diazepam IVP 2 mg IVP once ordered. cp cp 12/02 21:18 20:09 Constitutional: The patient appears in no acute distress, alert, awake, cp non-diaphoretic, non-toxic, well developed, well nourished, cp 21:18 20:09 Head/Face: Normocephalic, atraumatic. cp cp 21:18 20:09 Eyes: Periorbital structures: appear normal, Pupils: equal, round, and reactive cp to light and accomodation, Extraocular movements: intact throughout, Conjunctiva: normal, no exudate, no injection, Sclera: no appreciated abnormality, cp 21:18 21:12 ENT: External ear(s): are unremarkable, Ear canal(s): are normal, clear, TM's: cp dullness, bilaterally, Nose: is normal, Mouth: is normal, Posterior pharynx: is normal, airway is patent, no erythema, no exudate, cp 21:18 21:12 Neck: C-spine: vertebral tenderness, is not appreciated, crepitus, is not cp appreciated, ROM/movement: is normal, is supple, no range of motions limitations, no meningismus, no nuchal rigidity, cp 21:18 21:12 Chest/axilla: Inspection: normal, cp cp 21:18 21:12 Cardiovascular: Rate: tachycardic, Rhythm: regular, Edema: is not appreciated, cp JVD: is not appreciated, cp 21:18 21:12 Respiratory: the patient does not display signs of respiratory distress, cp Respirations: normal, no use of accessory muscles, no retractions, labored breathing, is not present, Breath sounds: are clear throughout, no decreased breath sounds, no stridor, no wheezing, cp 21:18 21:12 Abdomen/GI: Inspection: abdomen appears normal, Bowel sounds: active, all cp quadrants, Palpation: abdomen is soft and non-tender, in all quadrants, cp 21:18 21:12 Back: pain, that is moderate, ROM is painful, with all movement, cp cp 21:18 21:12 Neuro: Orientation: to person, place \T\ time. Mentation: is normal, Cerebellar cp function: is grossly normal, Motor: moves all fours, strength is normal, Sensation: is normal, cp 21:18 21:12 Musculoskeletal/extremity: Exam is negative for decreased range of motion, edema, cp injury, cp
--- NOTE | 2022-12-01 21:03 | ER ---
Nurse's Notes [facility] Name: Heather Coon Age: 52 yrs Sex: Female : 1970 Arrival Date: 12/01/2022 Time: 17:34 Bed 2 Private MD: Diagnosis: Other seizures;Fall (on) (from) unspecified stairs and steps;Cervicalgia;Headache;Dorsalgia, unspecified Presentation: 12/01 17:43 Chief complaint: EMS states: witnesses reported the patient had 3 seizures prior to ap3 their arrival, and then 3 more once they arrived on scene. EMS states there was no postictal phase. Coronavirus screen: At this time, the client does not indicate any symptoms associated with coronavirus-19. Ebola Screen: No symptoms or risks identified at this time. Initial Sepsis Screen: Does the patient meet any 2 criteria? No. Patient's initial sepsis screen is negative. Does the patient have a suspected source of infection? No. Patient's initial sepsis screen is negative. Risk Assessment: Do you want to hurt yourself or someone else? Patient reports no desire to harm self or others. Onset of symptoms was December 01, 2022. 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 20 GA, in the right hand. 17:43 Method Of Arrival: EMS: [facility] ap3 17:43 Acuity: ANDER 3 ap3 Triage Assessment: 17:49 General: Appears in no apparent distress. Behavior is calm, cooperative, appropriate ap3 for age. Pain: Complains of pain in back. Neuro: Level of Consciousness is awake, alert, obeys commands, Oriented to person, place, time, Seizure activity reported prior to arrival. Cardiovascular: Patient's skin is warm and dry. Respiratory: Airway is patent Respiratory effort is even, unlabored, Respiratory pattern is regular, symmetrical. Historical: - Allergies: 17:48 fluoxetine; ap3 17:48 Green Tea; ap3 17:48 Keppra; not an allergy, pt reports continued seizures while taking medication; ap3 - PMHx: 17:48 Anxiety; Bipolar disorder; Cancer-Cervical; Chronic obstructive lung disease; Chronic ap3 pain; Congestive heart failure; Depression; Diverticulitis; Herniated Back Disc; Hypertension; intestinal mass; Myocardial infarction; pt reports hx of seizures; Spastic Muscles; stroke; - PSHx: 17:48 cervical fusion; Cholecystectomy; foot; Tonsillectomy; ap3 - Social history:: Patient uses street drugs, marijuana, Smoking status: unknown. Screenin:48 Abuse screen: Denies threats or abuse. Nutritional screening: No deficits noted. ap3 Tuberculosis screening: No symptoms or risk factors identified. 19:09 [facility] ED Fall Risk Assessment (Adult) History of falling in the last 3 months, ap3 including since admission Yes- fall prone (multiple falls) (3 pts) Confusion or Disorientation No (0 pts) Intoxicated or Sedated No (0 pts) Impaired Gait Yes (1 pt) Mobility Assist Device Used Yes (1 pt) Altered Elimination No (0 pt) Score/Fall Risk Level 3 or more points = High Risk. Assessment: 17:56 Reassessment: patient denies Suicidal and homicidal ideations at this time. ap3 20:35 Reassessment: This RN steps into patients room to administer prescribed medications. nj1 Patient states "im not taking any medicine for seizure, i have told you i cannot take that medicine" This RN provides education, and reviews allergies with patient. Pt agrees to take medicines prescribed at this time. See MAR. 20:50 Reassessment: Reassessment: Patients significant other steps out of room and requests nj1 for this RN to come in and stop the methocarbamol infusion. Pt states "stop this, I dont know why they can just give me the one shot, last time i was here it wasn't like this" "I am leaving if you dont stop this". This RN stops the methocarbamol infusion and notifies primary nurse as well as C Page [employer]. Vital Signs: 17:43 BP 106 / 81; Pulse 100; Pulse Ox 99% on R/A; ap3 17:55 Temp 98.8(O); Weight 120.2 kg; ap3 19:00 BP 128 / 75; Pulse 89; Resp 22; Pulse Ox 99% on R/A; ll3 20:00 ll3 21:00 ll3 20:00 Pt refused VS ll3 21:00 Pt refused VS ll3 Nicole Coma Score: 17:49 Eye Response: spontaneous(4). Motor Response: obeys commands(6). Verbal Response: ap3 oriented(5). Total: 15. ED Course: 17:42 Patient arrived in ED. bd 17:43 Freida Rodriguez, RN is Primary Nurse. ap3 17:48 Triage completed. ap3 17:48 Patient has correct armband on for positive identification. Bed in low position. Call ap3 light in reach. Side rails up X2. Seizure precautions initiated. air sampling and monitoring on. Pulse ox on. NIBP on. 17:49 Arm band placed on right wrist. ap3 17:54 Derrick Castillo PA is PHCP. cp 17:54 Norbert Fisher DO is Attending Physician. cp 18:28 Inserted saline lock: 22 gauge in right forearm, using aseptic technique. ap3 19:[address] via stretcher. ap3 19:17 CT Traumagram (Head C Spine CAP W Con) In Process Unspecified. EDMS 19:33 EKG done, by ED staff, reviewed by Derrick HURST. wm 21:01 Javier Ireland MD is Referral Physician. cp 21:41 No provider procedures requiring assistance completed. IV discontinued, intact, ll3 bleeding controlled, No redness/swelling at site. Pressure dressing applied. Administered Medications: 20:50 Discontinued: Methocarbamol IVPB 1 grams IVPB once over 1 hrs; (mix in NS 100 mL) ll3 18:56 CANCELLED (Physician Discretion): Ativan IVP 1 mg IVP once cp 20:03 CANCELLED (Physician Discretion): Diazepam IVP 2 mg IVP once cp 20:16 Not Given (Physician Discretion): metoCLOPramide IVP 10 mg IVP once; over 1 to 2 minutescp 20:38 Drug: Ondansetron IVP 4 mg Route: IVP; Site: left forearm; ll3 21:42 Follow up: Response: No adverse reaction ll3 20:40 Drug: Ketorolac IVP 15 mg Route: IVP; Site: right forearm; ll3 21:43 Follow up: Response: No adverse reaction ll3 20:40 Drug: Methocarbamol IVPB 1 grams Route: IVPB; Infused Over: 1 hrs; Site: right forearm; ll3 21:43 Follow up: Response: No adverse reaction ll3 20:40 Drug: Phenytoin Sodium Extended PO 1000 mg Route: PO; ll3 21:42 Follow up: Response: No adverse reaction ll3 20:50 Not Given (Duplicate Order): Phenytoin IVPB 1 grams IVPB once ll3 Medication: 17:50 VIS not applicable for this client. ap3 Outcome: 21:03 Discharge ordered by . cp 21:41 Discharged to home ambulatory, with significant other. ll3 21:41 Condition: stable 21:41 Discharge instructions given to patient, significant other, Instructed on discharge instructions, follow up and referral plans. medication usage, Demonstrated understanding of instructions, follow-up care, medications, Prescriptions given X 2. 21:44 Patient left the ED. ll3 Signatures: Dispatcher [employer] EDMS Catherine Dewey Corey, PA PA cp Prokisch, Amanda RN RN ap3 Ira Ramachandran Lynsea, RN RN 3 Komal Villafuerte RN RN nj1 Corrections: (The following items were deleted from the chart) 19:10 19:10 Reassessment: ap3 ap3 21:35 21:28 Reassessment: njTomy nj1
[2022-12-01 22:06] VITALS: O2SAT 99
[2022-12-01 22:07] VITALS: TEMP 98.8
[2022-12-01 22:08] VITALS: BP 128/75
--- NOTE | 2022-12-02 07:47 | EKG ---
Test Date: 2022-12-01 Test Time: 19:22:35 Reservation Manager: MEASUREMENT RESULTS: Intervals: Rate: 87 WA: 144 QRSD: 92 QT: 374 QTc: 450 [place]: P: 75 WA: 144 QRS: 125 T: 62 INTERPRETIVE STATEMENTS: Normal sinus rhythm Right atrial enlargement Low voltage QRS Lateral infarct, age undetermined Abnormal ECG Compared to ECG 11/13/2022 00:51:00 Atrial abnormality now present Low QRS voltage now present Sinus tachycardia no longer present Myocardial infarct finding still present Electronically Signed On 12-02-22 07:45:34 CDT by Migel Warren
== END 2022-12-01 21:44 | disposition home or self-care (01) ==
LOC: ER 17:34
DX: F12.90 Cannabis use, unspecified, uncomplicated (principal); G40.89 Other seizures; M54.2 Cervicalgia; R51.9 Headache, unspecified; M54.9 Dorsalgia, unspecified; W10.9XXA Fall (on) (from) unspecified stairs and steps, initial encounter; Y93.9 Activity, unspecified; Y92.9 Unspecified place or not applicable
CPT/HCPCS: 36415; 70450; 71260; 72125; 74177; 80048; 80076; 85025; 85610; 85730; 93005; 99285; G0480; J2405; J2765; J2800; Q9967

== ENCOUNTER 2022-12-21 03:28 | Emergency (ER) | payer SELFPAY ==
--- OUTSIDE RECORDS SUMMARY | 2022-12-21 03:46 | XMS REPORT | Continuity of Care Document ---
:1970 Author Organization [facility] t Address [address] [place] [address] Care Team Providers Name Role Phone Aneta Silva Primary Care Physician [phone] Alfonso MULLIGAN Attending Clinician Unavailable Alfonso Lopez Attending Clinician RITCHIE WARREN Attending Clinician Unavailable Ritchie Warren MD Attending Clinician Shy Beckman RN Attending Clinician Halima Mendoza MD Attending Clinician Jen Yepez MD Attending Clinician Parrish Diane MD Attending Clinician PARRISH DIANE Attending Clinician Unavailable LORENZA HER Attending Clinician Unavailable Sav Rondon MD Attending Clinician Lorenza Her MD Attending Clinician Nicole EEO OFFICER, Maria Teresa Attending Clinician CHANTEL MATTHEWS Attending Clinician Unavailable CHANTEL MATTHEWS Attending Clinician Unavailable Brandyn Mcfarlane MD Attending Clinician SELINA MARTINES Attending Clinician Unavailable Sam Sapna Freya Attending Clinician Glory Esteves MD Attending Clinician [phone] Selina Martines MD Attending Clinician Vaccine, [place] Pedi Attending Clinician Unavailable Jose Frederick MD Attending Clinician JOSE FREDERICK Attending Clinician Unavailable NICHELLE ALLISON Attending Clinician Unavailable Nichelle Bishop Attending Clinician Doctor Unassigned, [place] Attending Clinician Unavailable Miky Nava RN Attending Clinician Unavailable Fabrice Gordillo Attending Clinician Lydia Eaton Attending Clinician Unknown, Attending Attending Clinician Unavailable UNKNOWN, ATTENDING Attending Clinician Unavailable Anali Rascon Attending Clinician Yehuda Arcos MD Attending Clinician Alfonso MULLIGAN Admitting Clinician Unavailable RITCHEI WARREN Admitting Clinician Unavailable JEN YEPEZ Admitting Clinician Unavailable LORENZA HER Admitting Clinician Unavailable Lorenza Her MD Admitting Clinician BRANDYN MCFARLANE Admitting Clinician Unavailable Brandyn Mcfarlane MD Admitting Clinician GLORY ESTEVES Admitting Clinician Unavailable NICHELLE ALLISON Admitting Clinician Unavailable Payers Payer Name Policy Type Policy Number Effective Date Expiration Date S mana MEDICAID PENDING PENDING 2022 00:00:00 Problems Condition Condition Condition Status Onset Resolution Last Treating Co mments Source Name Details Category Date Date Treatment Clinician Date Seizure Seizure Disease [facility]ur[facility] 00:00: Medical 00 Center Cardiomyop Cardiomyop Disease Active U nivers athy athy 1-13 ity of 00:00: [place] 00 Medical Branch NSVT NSVT Disease Active [...] artery 1-12 ity of disease disease 00:00: [place] involving involving 00 Medi kwame [place] [facility] Branch coronary coronary artery of artery of wr[place] wrangell heart heart without without angina angina pectoris pectoris Snores Snores Disease Active Univers 1-12 ity of 00:00: [place] 00 Medical Branch Cigarette Cigarette Disease Active Uni vers smoker smoker 1-12 ity of 00:00: [place] 00 Medical Branch Primary Primary Disease Active Univers hypertensi hypertensi 1-12 it y of on on 00:00: [place] 00 Medical Branch Other Other Disease Active Univers hyperlipid hyperlipid 1-12 it y of emia emia 00:00: [place] 00 Medical Branch Coronary Coronary Disease Active Unive rs artery artery 1-12 ity of disease disease 00:00: [place] involving involving 00 Medi kwame [place] wr[place] Branch coronary coronary artery of artery of wrangell wrangell heart heart without without angina angina pectoris [...] lumbar region region Neuroforam Neuroforam Disease Active 2022-0 U nivers inal inal 9-27 ity of [...] 3-11 ity of disorder disorder 00:00: [place] 00 [...] left 3- it y of 00:00: [place] 00 Medical Branch Anxiety Anxiety Disease Active Univers 3- ity of 00:00: [place] [facility] Lower back Lower back Disease Active U nivers pain pain 3- ity of 00:00: [place] 00 Medical Branch High blood High blood Disease Active U nivers pressure pressure 09-17 ity of 00:00: Medical Branch COPD COPD Disease Active Univers (chronic (chronic 09-17 ity of obstructiv obstructiv [place] Medical pulmonary pulmonary Bran ch disease) disease) Obesity Obesity Disease Active Univers 3 ity of 00:00: [place] 00 Medical Branch Allergies, Adverse Reactions, Alerts Allergy Allergy Status Severity Reaction(s) Onset Inactive Treating Comm ents Source Name Type Date Date Clinician LEVETIRA DRUG Active Other-Cmnt Univ ers CETAM INGREDI 11-17 ity of 00:00: [place] [facility] Levetira Propensi Active Other - [...] abuse [facility] Natural mother Cancer [facility] Natural mother Diabetes [facility] Natural mother Heart disease [facility] Natural mother Hyperlipidemia [facility] Natural mother Kidney disease [facility] Natural mother Stroke [facility] Paternal uncle Diabetes [facility] Social History Social Habit Start Date Stop Date Quantity Comments Source History SDOH Social Unive rsity of [facility] Med ical Together Branch History SDOH Social Unive rsity of [facility] History SDOH Social Unive rsity of [facility] Medical Membership Branch History SDOH Social Unive rsity of [facility] Medical Meetings Branch History of tobacco Cigarette Smoker [facility] History SDOH [facility] Alcohol Frequency Medical Center History SDOH [facility] Alcohol Std Drinks Medica Center History SDOH [facility] Alcohol Binge Medical [address] Exposure to 2022-12-01 2022-12-11 Not sure University of SARS-CoV-2 (event) 00:00:00 08:54:00 [facility] Cigarettes smoked 2022-08-02 2022-08-[address] [facility] [...] Social 2022-08-01 2022-08-01 5 Unive rsity of Link To Media Phone 00:00:00 00:00:00 [place] M edical Branch History SDOH Social 2022-08-01 2022-08-01 5 Unive rsity of Connections Living 00:00:00 00:00:00 [place] [facility] History SDOH 2022-08-01 2022-08-01 0 University o f Physical Activity 00:00:00 00:00:00 [facility] edical DPW Branch History SDOH 2022-08-01 2022-08-01 0 University o f Physical Activity 00:00:00 00:00:00 [facility] edical MPS Branch History SDOH 2022-08-01 2022-08-01 3 University o f Financial 00:00:00 00:00:00 [place] [facility] History SDOH Food 2022-08-01 2022-08-01 1 Univers ity of Worry 00:00:00 00:00:00 [place] [facility] History SDOH Food 2022-08-01 2022-08-01 1 Univers ity of Scarcity 00:00:00 00:00:00 [place] [facility] History SDOH 2022-08-01 2022-08-01 2 University o f Transport Med 00:00:00 00:00:00 [place] Medic al Branch History SDNV 2022-08-01 2022-08-01 2 University o f Transport Non-Med 00:00:00 00:00:00 [facility] edical Branch Cigarette 2022-07-31 2022-07-31 University of pack-years 00:00:00 00:00:00 [facility] Education 2022-07-31 2022-07-31 14 University of 00:00:00 00:00:00 [facility] Sex Ass[birth year] At 1970 [address] [facility] 00:00:00 00:00:00 [facility] Smoking Status Start Date Stop Date Source Smokes tobacco daily 2022-08-02 00:00:00 [facility] Medications Ordered Filled Start Stop Current Ordering Indication Dosage Frequency Signature Comments Components Source Medication Medication Date Date Medication? Clinician (SIG) Name Name lacosamide 2022- No 200mg 200 mg, IV Univers (VIMPAT) 5-25 05-25 Piggyback, ity of 200 mg in 19:45: 19:57 ONCE, 1 [place] NaCl 0.9% 00 :00 dose, On Medica l (NS) 50 mL [facility] Branch piggyback 12/11/22 at 1445, Administer over 30 Minutes, 50 mL
F aculty member approving Restricted medication : Alfonso MULLIGAN ketorolac 2022- No 15mg 15 mg, Unive rs (TORADOL) 12-11 05-25 Slow IV ity of injection 18:15: 17:25 Push, [place] 15 mg 00 :00 ONCE, 1 Medical dose, On Branch [facility] 12/11/22 at 1315, MICHAEL iopamidol 2022- No [id number] 80mL 80 mL, U nivers (ISOVUE 12-11-25 Intravenou ity o f 370-500 mL) 16:30: 16:27 s, ONCE, 1 [place] injection 00 :00 dose, On Medica l 80 mL [facility] Branch 12/11/22 at 1130, Routine nitroglycer 2022- No .5[in_u 0.5 Inch, Univers in (NITROL) 12-11-25 s] Transderma i ty of 2 % 15:30: 14:31 l (Apply [place] ointment 00 :00 To Skin), Medica l 0.5 Inch ONCE, 1 Branch dose, On [facility] 12/11/22 at 1030, MICHAEL aspirin 2022- No 324mg 324 mg, Unive rs chewable 12-11-25 Oral, ity of tablet 324 15:30: 14:30 ONCE, 1 [place] as mg 00 :00 dose, On [facility] Branch 12/11/22 at 1030, Routine ondansetron 2022- No 4mg 4 mg, Slow Univers (ZOFRAN 12-11 05-25 IV Push, ity of (PF)) 15:30: 14:29 ONCE, 1 [place] injection 4 00 :00 dose, On Medi kwame mg [facility] Branch 12/11/22 at 1030, MICHAEL LORazepam 2022- No 1mg 1 mg, Slow U nivers (ATIVAN) 12-11 05-25 IV Push, ity of injection 1 15:00: 14:57 ONCE, 1 [place] mg 00 :00 dose, On Medical [facility] Branch 12/11/22 at 1000, STAT Lacosamide Yes [id number] 100mg Take 1 Univers (VIMPAT) 5-25 tablet by ity of 100 mg 00:00: mouth in [place] tablet 00 the Medical morning Branch and 1 tablet in the evening. acetaminoph 2022- No 1{tbl} 1 tablet, Univers en-codeine 11-18 Oral, ity of (TYLENOL 05:30: 05:30 ONCE, 1 [place] #3) 300-30 00 :00 dose, On Medic al mg tablet 1 Thu11/18/22 Br anch tablet at 0030, MICHAEL methocarbam 2022- No 1000mg 1,000 mg, Univers oL 11-18 Oral, ity of (ROBAXIN) 05:30: 05:30 ONCE, 1 [place] tablet 00 :00 dose, On Medical 1,000 mg Counts Include 234 [facility] 11/18/22 Bran h at 0030, MICHAEL ondansetron 2022- No 4mg 4 mg, Slow Univers (ZOFRAN 11-18 IV Push, ity of (PF)) 04:45: 03:38 ONCE, 1 [place] injection 4 00 :00 dose, On Medi kwame mg [facility] 11/17/22 Branch at 2345, MICHAEL morpHINE (4 2022- No 4mg 4 mg, Slow Univers mg/mL) 11-18 IV Push, ity of injection 4 03:45: 03:38 ONCE, 1 [place] mg 00 :00 dose, On Medical [facility] 11/17/22 Branch at 2245, Routine methocarbam 2022- No 1000mg 1,000 mg, Univers oL 11-18 Intravenou ity of (ROBAXIN) 00:30: 23:47 s, ONCE, 1 [place] injection 00 :00 dose, On Medica l 1,000 mg [facility] 11/17/22 Branc h at 1930, MICHAEL methocarbam 2022-0 Yes [id number] 1000mg Take 2 Univers oL 500 mg -02 tablets by ity of tablet 00:00: mouth 4 [place] 00 (four) Medical times Branch daily as needed for Pain (scale 7-10). methocarbam 2023-0 Yes [id number] 1000mg Take 2 Univers oL 500 mg 11-18 tablets by ity of tablet 00:00: mouth 4 [place] 00 (four) Medical times Branch daily as needed for Pain (scale 7-10). acetaminoph 2022- Yes 4647 1{tbl} Take 1 U nivers en-codeine 11-1810 tablet by ity of 300-60 mg 00:00: 04:59 mouth [place] tablet 00 :00 every 6 Medical (six) Branch hours as needed for Pain for up to 7 days. Indication s: acute pain ketorolac 2022- No 15mg 15 mg, Unive rs (TORADOL) 11-18 Slow IV ity of injection 00:00: 23:08 Push, [place] 15 mg 00 :00 ONCE, 1 Medical dose, On Branch 11/17/22 at 1900, Routine morpHINE (4 2022- No [...] 00 :00 dose, On Medi kwame mg Thu11/17/22 Branch at 1815, MICHAEL lisinopriL Yes 10mg 10 mg, Unive rs (PRINIVIL,Z 08-02 Oral, ity of ESTRIL) 15:00: DAILY, [place] [...] Discontinu ed, Routine, Pain (scale 7-10) levETIRAcet 0 Yes 1000mg 1,000 mg, Univers am (KEPPRA) 1-14 IV ity of in NACL 00:00: [place], [place] (ISO-OS) 00 Q12H, Medical 1,000 First dose Branch mg/100 mL on Thu RTU 08/01/22 at 1800, Until Discontinu ed, Administer over 15 Minutes, 100 mL MULTIVITAMI 0 Yes 1{tbl} Take 1 Tab Univers N ORAL 1-13 by mouth ity of 23:49: daily. [address] omega-3 0 Yes 1g Take 1 g Univer s fatty 1-13 by mouth ity of acids-vitam 23:49: daily. [place] in E (FISH 34 Medical OIL) 1,000 Branch mg capsule loratadine 0 Yes Take by Univ ers (CLARITIN 1-13 mouth ity of LIQUI-GEL) 23:49: daily. [place] 10 mg Medical capsule Branch ondansetron 0 Yes 4mg Take 4 mg U nivers 4 mg tablet 1-13 by mouth ity of 23:49: every 8 [place] [address] (eight) Medical hours as Branch needed. pantoprazol 0 Yes 40mg Take 40 mg Univers e 40 mg EC 1-13 by mouth ity o f tablet 23:49: daily. [address] MULTIVITAMI 2022-0 Yes 1{tbl} Take 1 Tab Univers N ORAL 1-13 by mouth ity of 23:49: daily. [address] omega-3 2022-0 Yes 1g Take 1 g Univer s fatty 1-13 by mouth ity of acids-vitam 23:49: daily. [place] in E (FISH 34 Medical OIL) 1,000 Branch mg capsule loratadine 0 Yes Take by Univ ers (CLARITIN 1-13 mouth ity of LIQUI-GEL) 23:49: daily. [place] 10 mg 34 Medical capsule Branch ondansetron 2022-0 Yes 4mg Take 4 mg U nivers 4 mg tablet 1-13 by mouth ity of 23:49: every 8 [place] [address] (eight) Medical hours as Branch needed. pantoprazol 0 Yes 40mg Take 40 mg Univers e 40 mg EC 1-13 by mouth ity o f tablet 23:49: daily. [address] MULTIVITAMI Yes 1{tbl} Take 1 Tab Univers N ORAL 1-13 by mouth ity of 23:49: daily. [address] omega-3 0 Yes 1g Take 1 g Univer s fatty 1-13 by mouth ity of acids-vitam 23:49: daily. [place] in E (FISH 34 Medical OIL) 1,000 Branch mg capsule loratadine 0 Yes Take by [facility] ers (CLARITIN 1-13 mouth ity of LIQUI-GEL) 23:49: daily. [place] 10 mg 34 Medical capsule Branch ondansetron 0 Yes 4mg Take 4 mg U nivers 4 mg tablet 1-13 by mouth ity of 23:49: every 8 [place] [address] (eight) Medical hours as Branch needed. pantoprazol 2022-0 Yes 40mg Take 40 mg Univers e 40 mg EC 1-13 by mouth ity o f tablet 23:49: daily. [address] MULTIVITAMI Yes 1{tbl} Take 1 Tab Univers N ORAL 1-13 by mouth ity of 23:49: daily. [address] omega-3 Yes 1g Take 1 g Univer s fatty 1-13 by mouth ity of acids-vitam 23:49: daily. [place] in E (FISH 34 Medical OIL) 1,000 Branch mg capsule loratadine 0 Yes Take by [facility] ers (CLARITIN 1-13 mouth ity of LIQUI-GEL) 23:49: daily. [place] 10 mg 34 Medical capsule Branch ondansetron 2022-0 Yes 4mg Take 4 mg U nivers 4 mg tablet 1-13 by mouth ity of 23:49: every 8 [place] [address] (eight) Medical hours as Branch needed. pantoprazol 2022-0 Yes 40mg Take 40 mg Univers e 40 mg EC 1-13 by mouth ity o f tablet 23:49: daily. [address] MULTIVITAMI 2023-0 Yes 1{tbl} Take 1 Tab Univers N ORAL 1-13 by mouth ity of 23:49: daily. [address] Branch omega-3 2022-0 Yes 1g Take 1 g Univer s fatty -13 by mouth ity of acids-vitam 23:49: daily. [place] in E (FISH 34 Medical OIL) 1,000 Branch mg capsule loratadine 0 Yes Take by Univ ers (CLARITIN - mouth ity of LIQUI-GEL) 23:49: daily. [place] 10 mg 34 Medical capsule Branch ondansetron 0 Yes 4mg Take 4 mg U nivers 4 mg tablet 13 by mouth ity of 23:49: every 8 [place] 34 (eight) Medical hours as Branch needed. pantoprazol 0 Yes 40mg Take 40 mg Univers e 40 mg EC 08-01 by mouth ity o f tablet 23:49: daily. [address] Branch benzonatate 0 Yes 100mg 100 mg, Un lois (TESSALON 1-13 Oral, Q8H, ity of PERLES) 20:00: First dose [place] capsule 100 00 on Fri Medica l mg 08/01/22 at Branch 1400, Until Discontinu ed, Routine ipratropium 2022-0 Yes 3mL 3 mL, Unive rs -albuteroL 08-01 Inhalation ity of (DUONEB) 18:00: , QID, Jose Miguel 0.5 mg-3 00 First dose Medic al mg(2.5 mg on Fri Branch base)/3 mL 08/01/22 at nebulizer 1200, solution 3 Until mL Discontinu ed, Routine ipratropium 2022-0 Yes 3mL 3 mL, Unive rs -albuteroL 08-01 Inhalation ity of (DUONEB) 17:07: , QIDPRN, [place] 0.5 mg-3 07 Starting Medical mg(2.5 mg on Fri Branch base)/3 mL 08/01/22 at nebulizer 1107, solution 3 Until mL Discontinu ed, MICHAEL, Wheezing, Shortness of Breath sulfur 3-0 2023- No [id number] 5mL 5 mL, Unive rs hexafluorid 08-01- Intravenou i ty of e microsphr 17:00: 17:00 s, ONCE, 1 [place] (LUMASON) 00 :00 dose, On Medica l injection 5 Fri Branch mL 08/01/22 at 1100, Routine
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 approving Restricted medication : TCKYLEE pantoprazol Yes 40mg 40 mg, Univ ers [...] as mg :13 First dose Medical on Fri Branch 08/01/22 at 0800, Until Discontinu ed, Routine levETIRAcet 2022- No 1000mg 1,000 mg, Univers am (KEPPRA) 08-01 IV ity of in NACL 06:45: 06:32 Piggyback, [place] as (ISO-OS) 00 :00 ONCE, 1 Medical 1,000 dose, On Branch mg/100 mL Fri RTU 08/01/22 at 0045, Administer over 15 Minutes, 100 mL LORazepam Yes 1mg 1 mg, Slow Un lois (ATIVAN) 08-01 IV Push, ity of injection 1 05:52: Q4HPRN, [place] as mg 54 Starting Medical on [facility] Branch 07/31/22 at 2352, Until Discontinu ed, Routine, Seizures, Agitation, Anxiety, ETOH / Cocaine Withdrawl foLIC acid 2022-0 Yes 1mg 1 mg, Univer s (FOLATE) 13 Oral, ity of tablet 1 mg 05:45: DAILY, [place] 00 First dose Medical on [facility] 07/31/22 at 2345, Until Discontinu ed, Routine thiamine 2022-0 Yes 100mg 100 mg, Unive rs (VITAMIN 13 Oral, ity of B1) tablet 05:45: DAILY, [place] 100 mg 00 First dose Medical on [facility] 07/31/22 at 2345, Until Discontinu ed, Routine LORazepam 2022-0 2022- No .5mg 0.5 mg, Univ ers (ATIVAN) 08-01 Slow IV ity of injection 05:30: 05:29 Push, [place] 0.5 mg 00 :00 ONCE, 1 Medical dose, On Branch [facility] 07/31/22 at 2330, MICHAEL atorvastati 0 Yes 40mg 40 mg, Univ ers n (LIPITOR) 13 Oral, QHS, it y of tablet 40 03:00: First dose [place] mg 00 on [facility] 07/31/22 at Branch 2100, Until Discontinu ed, Routine diphenhydrA 2022-0 Yes 25mg 25 mg, Univ ers MINE 13 Oral, ity of (BENADRYL) 00:32: Q6HPRN, [place] tablet 25 02 Starting Medica l mg on [facility] 07/31/22 at 1832, Until Discontinu ed, Routine, Itching enoxaparin 2022-0 Yes 40mg 40 mg, Unive rs (LOVENOX) 07-31 Subcutaneo ity of injection 23:00: [place], DAILY, [place] 40 mg 00 First dose Medical on [facility] 07/31/22 at 1700, Until Discontinu ed, Routine [...] 36 Starting Medica l tablet 1 on [place] Branch tablet 07/31/22 at 1601, Until Discontinu ed, Routine, Pain (scale 7-10) HYDROcodone 2022-0 202- No 1{tbl} 1 tablet, Univers -acetaminop 07-31 Oral, ity of hen (NORCO 22:01: 22:00 Q6HPRN, [place] as 5) 5-325 mg 34 :34 Starting Medi kwame tablet 1 on [facility] Branch tablet 07/31/22 at 1601, Until [...] ity of succ 19:30: 18:54 Push, ONCE [place] (SOLU-MEDRO 00 :00 NOW, 1 Medica l L) dose, On Branch injection [place] 125 mg 07/31/22 at 1330, MICHAEL ipratropium 2022- No 3mL 3 mL, [facility] ers -albuteroL 07-31 Inhalation it y of (DUONEB) 19:30: 18:48 , ONCE, 1 [place] 0.5 mg-3 00 :00 dose, On Medical mg(2.5 mg [place] Branch base)/3 mL 07/31/22 at nebulizer 1330, MICHAEL solution 3 mL pantoprazol Yes 40mg Take 40 mg Univers e 40 mg EC 12 by mouth ity o f tablet 17:15: daily. [place] 40 Medical Branch MULTIVITAMI 0 Yes 1{tbl} Take 1 Tab Univers N ORAL 12 by mouth ity of 15:50: daily. [place] 57 Medical Branch loratadine Yes Take by [facility] ers (CLARITIN 12 mouth ity of LIQUI-GEL) 15:50: daily. [place] 10 mg 57 Medical capsule Branch ondansetron Yes 4mg Take 4 mg U nivers 4 mg tablet 12 by mouth ity of 15:50: every 8 [place] 57 (eight) Medical hours as Branch needed. omega-3 Yes 1g Take 1 g [facility] s fatty 12 by mouth ity of acids-vitam 15:21: [facility]. [facility] (FISH 27 Medical OIL) 1,000 Branch mg capsule TAKE ONE No (1) 1-09 TABLET(S) 00:00: BY MOUTH 00 THREE TIMES A DAY NEEDED. Methylpredn 2021-07- No [id number] 4mg Take 1 Univers isolone 4 0-22 10-24 tablet ity of mg tablet 00:00: 04:59 through [place] 00 :00 enteral Medical tube in Branch the morning for 1 dose. Methylpredn 2021-07- No [id number] 4mg Take 1 Univers isolone 4 0-21 10-23 tablet ity of mg tablet 00:00: 04:59 through [place] 00 :00 enteral Medical tube every Branch 12 (twelve) hours for 2 doses. MULTIVITAMI 2021-07 Yes 1{tbl} Take 1 Tab Univers N ORAL 0-20 by mouth ity of 14:44: daily. [place] 48 Medical Branch omega-3 2021-07 Yes 1g Take 1 g Univer s fatty 0-20 by mouth ity of acids-vitam 14:44: daily. [place] in E (FISH 48 Medical OIL) 1,000 Branch mg capsule loratadine 2021-07 Yes Take by [facility] ers (CLARITIN 0-20 mouth ity of LIQUI-GEL) 14:44: daily. [place] 10 mg 48 Medical capsule Branch ondansetron 2021-07 Yes 4mg Take 4 mg U nivers (ZOFRAN) 4 0-20 by mouth ity o f mg tablet 14:44: every 8 [place] 48 (eight) Medical hours as Branch needed. pantoprazol 2021-07 Yes 40mg Take 40 mg Univers e 0-20 by mouth ity of (PROTONIX) 14:44: daily. [place] 40 mg EC 48 Medical tablet Branch DULoxetine 2021-07 Yes 30mg 30 mg, Unive rs (CYMBALTA) 0-20 Oral, ity of capsule 30 14:00: DAILY, [place] mg 00 First dose Medical on [facility] Branch 05/08/22 at 0900, Until Discontinu ed, Routine divalproex 2021-07 Yes 1000mg 1,000 mg, Univers (DEPAKOTE) 0-20 Oral, BID, ity of EC tablet 13:00: First dose [place] 1,000 mg 00 (after Medical last Branch modificati on) on [facility] 05/08/22 at 0800, Until Discontinu ed, Routine Methylpredn 2021-07 No 4mg 4 mg, Univ ers isolone 0-20 10-21 Oral, Q8H ity of (MEDROL) 08:50: 08:59 TAPER, 3 [place] tablet 4 mg 10 :00 doses, Medica l First dose Branch on [facility] 05/08/22 at 0400, Last dose on [facility] 05/08/22 at 2000, Routine acetaminoph 2021-07 Yes 1{tbl} 1 tablet, Univers en-codeine 0-20 Oral, ity of (TYLENOL 04:07: Q4HPRN, [place] #3) 300-30 01 Starting Medic al mg tablet 1 on Thu tablet 05/07/22 at 2307, Until Discontinu ed, Routine, Pain (scale 7-10) morpHINE (2 2021-07 Yes 2mg 2 mg, Slow Univers mg/mL) 0-20 IV Push, ity of injection 2 03:03: Q4HPRN, [place] as mg 15 Starting Medical on Thu05/07/22 at 2203, Until Discontinu ed, Routine, Pain (scale 7-10) LORazepam 2021-07 Yes 1mg 1 mg, Univers (ATIVAN) 0-20 Oral, ity of tablet 1 mg 00:02: Q6HPRN, [place] as 18 Starting Medical on Thu05/07/22 at 1902, Until Discontinu ed, Routine, Anxiety cyclobenzap 2021-07 Yes [id number] 5mg Take 1 Univers rine 5 mg 0-20 tablet by ity o f tablet 00:00: mouth in [place] [address] [facility] morning Branch and 1 tablet at noon and 1 tablet in the evening. cyclobenzap 2021-07 Yes [id number] 5mg Take 1 Univers rine 5 mg 0-20 tablet by ity o f tablet 00:00: mouth in [place] [address] [facility] morning Branch and 1 tablet at noon and 1 tablet in the evening. cyclobenzap 2021-07 Yes [id number] 5mg Take 1 Univers rine 5 mg 0-20 tablet by ity o f tablet 00:00: mouth in [address] morning Branch and 1 tablet at noon and 1 tablet in the evening. cyclobenzap 2021-07 Yes [id number] 5mg Take 1 Univers rine 5 mg 0-20 tablet by ity o f tablet 00:00: mouth in [address] morning Branch and 1 tablet at noon and 1 tablet in the evening. cyclobenzap 2021-07 Yes [id number] 5mg Take 1 Univers rine 5 mg 0-20 tablet by ity o f tablet 00:00: mouth in [address] morning Branch and 1 tablet at noon and 1 tablet in the evening. cyclobenzap 2021-07 Yes [id number] 5mg Take 1 Univers rine 5 mg 0-20 tablet by ity o f tablet 00:00: mouth in [place] 00 the Medical morning Branch and 1 tablet at noon and 1 tablet in the evening. cyclobenzap 2021-07 Yes [id number] 5mg Take 1 Univers rine 5 mg 0-20 tablet by ity o f tablet 00:00: mouth in [place] 00 the Medical morning Branch and 1 tablet at noon and 1 tablet in the evening. DULoxetine 2021-07- No [id number] 60mg Take 2 Univers (CYMBALTA) 0-20 11-20 capsules ity of 30 mg 00:00: 05:59 by mouth [place] capsule 00 :00 in the Medical morning Branch for 30 days. divalproex 2021-07- No [id number] 750mg Take 3 Univers (DEPAKOTE) 0-20 11-20 tablets by it y of 250 mg EC 00:00: 05:59 mouth [place] tablet 00 :00 every 8 Medical (eight) Branch hours for 30 days. LORazepam 1 2021-07- No [id number] 1mg Take 1 Univers mg tablet 0-20 [...] Indication s: acute pain Methylpredn 2021-07- No [id number] 4mg Take 1 Univers isolone 4 0-20 10-22 tablet by ity of mg tablet 00:00: 04:59 mouth [place] 00 :00 every 8 Medical (eight) Branch hours for 3 doses. divalproex 2021-07- No 750mg 750 mg, Un lois (DEPAKOTE) 0-19 10-20 Oral, BID, it y of EC tablet 01:00: 09:40 First dose [place] 750 mg 00 :23 on [facility] 05/06/22 Branch at 1999, Until Discontinu ed, Routine levETIRAcet 2021-07 No 1500mg 1,500 mg, Univers am (KEPPRA) 018 Oral, BID, i ty of tablet 13:00: 18:38 [place] 1,500 mg 00 :22 (after Medical last Branch modificati on) on Thu05/06/22 at 0800, Until Discontinu ed, Routine levETIRAcet 2021-07 No 1000mg 1,000 mg, Univers am (KEPPRA) 005-06 IV ity of in NACL 05:00: 05:46 Piggyback, [place] (ISO-OS) 00 :00 ONCE, 1 Medical 1,000 dose, On mg/100 mL Thu RTU 05/06/22 at 0000, Administer over 15 Minutes, 100 mL methocarbam 2021-07 No 500mg 500 mg, U nivers oL 05-06 Oral, QID, ity of (ROBAXIN) 02:15: 23:21 First dose [place] tablet 500 00 :42 on [facility] 05/05/22 Branch at 2115, Until Discontinu ed, Routine LORazepam 2021-07 No 2mg 2 mg, Univer s (ATIVAN) 05-06 Oral, ity of tablet 2 mg 01:30: 01:03 ONCE, 1 [place] 00 :[place] dose, On [facility] 05/05/22 at 2030, Routine levETIRAcet 2021-07 No 1000mg 1,000 mg, Univers am (KEPPRA) 05-06 Oral, BID, i ty of tablet 01:00: 04:48 First dose [place] 1,000 mg 00 :06 on [facility] 05/05/22 Branch at 2000, Until Discontinu ed, Routine enoxaparin 2021-07 Yes 40mg 40 mg, Unive rs (LOVENOX) 018 Subcutaneo ity of injection 00:15: us, Q24H, [place] 40 mg 00 First dose Medical on [facility] 05/05/22 at 1915, Until Discontinu ed, Routine levETIRAcet 2021-07 No 1000mg 1,000 mg, Univers am (KEPPRA) 005-05 IV ity of in NACL 19:45: 20:05 Piggyback, [place] (ISO-OS) 00 :00 ONCE, 1 Medical 1,000 dose, On Branch mg/100 mL [facility] RTU 05/05/22 at 1445, Administer over 15 Minutes, 100 mL clonazePAM 2021-07 Yes .5mg 0.5 mg, Univ ers (KLONOPIN) 0-17 Oral, BID, ity of tablet 0.5 19:30: First dose [place] mg 00 on [facility] 05/05/22 Branch at 1430, Until Discontinu ed, Routine ibuprofen 2021-07 Yes 600mg 600 mg, Univ ers (IBU) 0-17 Oral, TID ity of tablet 600 19:30: MEALS, [place] mg 00 First dose Medical on [facility] 05/05/22 at 1430, Until Discontinu ed, Routine gabapentin 2021-07 Yes 300mg 300 mg, Uni vers (NEURONTIN) 0-17 Oral, TID, it y of capsule 300 19:30: First dose [place] mg 00 on [facility] 05/05/22 Branch at 1430, Until Discontinu ed, Routine cyclobenzap 2021-07 Yes 5mg 5 mg, Unive rs rine 0-17 Oral, TID, ity of (FLEXERIL) 19:30: First dose [place] tablet 5 mg 00 on [facility] 05/05/22 Branch at 1430, Until Discontinu ed, Routine acetaminoph 2021-07 Yes 1000mg 1,000 mg, Univers en 0-17 Oral, Q8H, ity of (TYLENOL) 19:30: First dose [place] tablet 00 on [facility] 1,000 mg 05/05/22 Branch at 1430, Until Discontinu ed, Routine pantoprazol 2021-07 Yes 40mg 40 mg, Univ ers e 0-17 Oral, ity of (PROTONIX) 14:00: DAILY, [place] EC tablet 00 First dose Medi kwame 40 mg on [facility] 05/05/22 at 0900, Until Discontinu ed, Routine docusate 2021-07 Yes 100mg 100 mg, Unive rs (COLACE) 0-17 Oral, ity of capsule 100 14:00: DAILY, [place] mg 00 First dose Medical on [facility] 05/05/22 at 0900, Until Discontinu ed, Routine HYDROcodone 2021-07- No 1{tbl} 1 tablet, Univers -acetaminop 0-17 10-17 Oral, ity of hen (NORCO) 10:32: 19:18 Q6HPRN, [place] 10-325 mg 02 :52 Starting Medica l tablet 1 on [facility] tablet 05/05/22 at 0532, Until Thu05/05/22 at 1418, Routine, Pain (scale 7-10) ondansetron 2021-07 Yes 4mg 4 mg, Slow Univers (ZOFRAN 0-17 IV Push, ity of (PF)) 06:49: Q6HPRN, [place] injection 4 57 Starting Medi kwame mg on [facility] Branch 05/05/22 at 0149, Until Discontinu ed, Routine, Nausea and Vomiting (N/V) HYDROcodone 2021-07- No 1{tbl} 1 tablet, Univers -acetaminop 0-17 10-17 Oral, ity of hen (NORCO 06:49: 10:32 Q6HPRN, [place] 5) 5-325 mg 41 :14 Starting Medi kwame tablet 1 on [facility] tablet 05/05/22 at 0149, Until Thu05/05/22 at 0532, Routine, Pain (scale 7-10) acetaminoph 2021-07- No 325mg 325 mg, U nivers en 0-17 10- Oral, ity of (TYLENOL) 06:49: 19:18 Q4HPRN, [place] tablet 325 39 :52 Starting Medic al mg on [facility] Branch 05/05/22 at 0149, Until Thu05/05/22 at 1418, Routine, Pain (scale 4-6) ondansetron 2021-07- No 4mg 4 mg, Univ ers (ZOFRAN) 0-17 10-17 Oral, ity of tablet 4 mg 04:00: 03:26 ONCE, 1 [place] 00 :00 dose, On [facility] 05/04/22 at 2300, Routine morpHINE (2 2021-07- No 2mg 2 mg, Slow Univers mg/mL) 0-17 10-17 IV Push, ity of injection 2 04:00: 03:26 ONCE, 1 [place] mg 00 :00 dose, On [facility] 05/04/22 at 2300, Routine aspirin 81 0 Yes [id number] 81mg Take 1 U nivers mg chewable 9-28 tablet by ity of tablet 00:00: mouth in [place] 00 the Medical morning. Branch aspirin 81 2021-0 Yes [id number] 81mg Take 1 U nivers mg chewable 9-28 tablet by ity of tablet 00:00: mouth in [place] 00 the Medical morning. Branch aspirin 81 0 Yes [id number] 81mg Take 1 U nivers mg chewable 9-28 tablet by ity of tablet 00:00: mouth in [place] 00 the Medical morning. Branch aspirin 81 0 Yes [id number] 81mg Take 1 U nivers mg chewable 9-28 tablet by ity of tablet 00:00: mouth in [place] 00 the Medical morning. Branch aspirin 81 0 Yes [id number] 81mg Take 1 U nivers mg chewable 9-28 tablet by ity of tablet 00:00: mouth in [place] 00 the Medical morning. [place] aspirin 81 0 Yes [id number] 81mg Take 1 U nivers mg chewable 9-28 tablet by ity of tablet 00:00: mouth in [place] 00 the Medical morning. Branch aspirin 81 0 Yes [id number] 81mg Take 1 U nivers mg chewable 9-28 tablet by ity of tablet 00:00: mouth in [place] 00 the Medical morning. [place] aspirin 81 0 Yes [id number] 81mg Take 1 U nivers mg chewable 9-28 tablet by ity of tablet 00:00: mouth in [place] 00 the Medical morning. [place] MULTIVITAMI Yes 1{tbl} Take 1 Tab Univers N ORAL 9-27 by mouth ity of 17:39: daily. [place] 14 [facility] Branch omega-3 Yes 1g Take 1 g Univer s fatty 9- by mouth ity of acids-vitam 17:39: [facility]. [facility] 14 Medical OIL) 1,000 Branch mg capsule loratadine Yes Take by Univ ers (CLARITIN 9- mouth ity of LIQUI-GEL) 17:39: daily. [place] 10 14 Medical capsule Branch ondansetron Yes [...] Medic al mg tablet 1 on Thu tablet 04/15/22 at 0039, Until Thu04/15/22 at [...] (after Medical last Branch modificati on) on [facility] 04/14/22 at 2145, Until Discontinu ed, Routine ketorolac 2021- No 15mg 15 mg, Unive rs (TORADOL) 04-15 Slow IV ity of injection 02:13: 02:22 Push, [place] 15 mg 00 :00 ONCE, 1 Medical dose, On Branch 04/14/22 at 2115, Routine levETIRAcet Yes [id number] 1000mg Take 1 Univers am 1,000 mg 9-27 tablet by ity of tablet 00:00: mouth in [place] 00 the Medical morning Branch and 1 tablet in the evening. atorvastati Yes [id number] 40mg Take 1 Univers n 40 mg 9-27 tablet by ity of tablet 00:00: mouth at [place] 00 bedtime. Medical Branch atorvastati Yes [id number] 40mg Take 1 Univers n 40 mg 9-27 tablet by ity of tablet 00:00: mouth at [place] 00 bedtime. Medical Branch atorvastati Yes [id number] 40mg Take 1 Univers n 40 mg 9-27 tablet by ity of tablet 00:00: mouth at [place] 00 bedtime. Medical Branch atorvastati Yes [id number] 40mg Take 1 Univers n 40 mg 9-27 tablet by ity of tablet 00:00: mouth at [place] 00 bedtime. Medical Branch atorvastati Yes [id number] 40mg Take 1 Univers n 40 mg 9-27 tablet by ity of tablet 00:00: mouth at [place] 00 bedtime. Medical Branch atorvastati Yes [id number] 40mg Take 1 Univers n 40 mg 9-27 tablet by ity of tablet 00:00: mouth at [place] [address] bedtime. Medical Branch atorvastati Yes [id number] 40mg Take 1 Univers n 40 mg 9-27 tablet by ity of tablet 00:00: mouth at [place] [address] bedtime. Medical Branch atorvastati Yes [id number] 40mg Take 1 Univers n 40 mg 9-27 tablet by ity of tablet 00:00: mouth at [place] [address] bedtime. Medical Branch levETIRAcet 2021- No [id number] 1000mg Take 1 Univers am 1,000 mg 9-27 10-20 tablet by it y of tablet 00:00: 00:00 mouth in [place] 00 :00 the Medical morning Branch and 1 tablet in the evening. lidocaine 5 2021- No [id number] 1{patch Apply 1 Univers % (700 9-27 [...] 12 Medical patch 1 Hours, Branch Patch [id number], Starting on Thu04/14/22 at 1645, Until Discontinu [...] Pain (scale 7-10), Pain (scale 4-6) sulfur 2021-2021- No [id number] 5mL 5 mL, Univ ers hexafluorid 04-14 Intravenou i ty of e microsphr 16:45: 16:45 s, ONCE, 1 [place] (LUMASON) 00 :00 dose, On Medica l injection 5 Mon Branch mL 04/14/22 at 1145, Routine
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 approving Restricted medication : [employer] clopidogreL 0 Yes 75mg 75 mg, Univ ers (PLAVIX) 75 04-14 Oral, ity of mg tablet 14:00: DAILY, [place] 75 mg 00 First dose Medical on [facility] 04/14/22 at 0900, Until Discontinu ed, Routine pantoprazol Yes 40mg 40 mg, Univ ers e 04-14 Oral, ity of (PROTONIX) 14:00: DAILY, [place] EC tablet 00 First dose Medi kwame 40 mg on [facility] 04/14/22 at 0900, Until Discontinu ed, Routine atorvastati Yes 40mg 40 mg, Univ ers n (LIPITOR) 04-14 Oral, QHS, it y of tablet 40 02:00: First dose [place] mg 00 on [facility] 04/13/22 at Branch 2100, Until Discontinu ed, Routine LORazepam 2021- No 1mg 1 mg, Univer s (ATIVAN) 04-14 Oral, ity of tablet 1 mg 01:30: 01:45 ONCE, 1 [place] 00 :00 dose, On Medical [facility] 04/13/22 at 2030, Routine methocarbam Yes 500mg 500 mg, Un lois oL 04-14 Oral, QID, ity of (ROBAXIN) 01:00: First dose [place] tablet 500 00 on [facility] mg 04/13/22 at Branch 2000, Until Discontinu ed, Routine heparin Yes 5000U 5,000 Univers (porcine) 04-14 Units, ity of injection 01:00: Subcutaneo [place] 5,000 Units 00 us, Q12H, Med ical First dose Branch on [place] 04/13/22 at 2000, Until Discontinu ed, Routine acetaminoph 2021- No 650mg 650 mg, U nivers en 04-14 Oral, ity of (TYLENOL) 00:23: 21:29 Q6HPRN, [place] tablet 650 25 :42 Starting Medic al mg on [facility] 04/13/22 at 1923, Until [facility] 04/14/22 at 1629, Routine, Pain (scale 1-3), Pain (scale 4-6), Temp > 38.5 C, Temp > 37.5 C lidocaine 2021- No 1{patch 1 Patch, Univers (LIDODERM) 04-14 } Topical, ity of 5 % (700 00:22: 13:51 Administer [place] mg/patch) 00 :00 over 12 Medical patch 1 Hours, Branch Patch ONCE, 1 dose, On [place] 04/13/22 at 1930, Routine FENTanyl PF 2021- No 50ug 50 mcg, Un lois (SUBLIMAZE 04-13 Slow IV ity o f (PF)) 20:30: 19:22 Push, [place] injection 00 :00 ONCE, 1 Medical 50 mcg dose, On [facility] 04/13/22 at 1530, Routine aspirin 2021- No 650mg 650 mg, Unive rs chewable 04-13 Oral, ity of tablet 650 20:15: 20:15 ONCE, 1 [place] mg 00 :00 dose, On Medical [facility] 04/13/22 at 1515, Routine clopidogreL 2021- No 300mg 300 mg, U nivers (PLAVIX) 04-13 Oral, ity of 300 mg 20:00: 19:15 ONCE, 1 [place] tablet 300 00 :00 dose, On Medic al mg [facility] 04/13/22 at 1500, Routine ondansetron 2021- No 4mg 4 mg, Slow Univers (ZOFRAN 04-13 IV Push, ity of (PF)) 19:30: 19:22 ONCE, 1 [place] injection 4 00 :00 dose, On Medi kwame mg [facility] 04/13/22 at 1430, MICHAEL iopamidol 2021- No [id number] 100mL 100 mL, Univers (ISOVUE 04-13 Intravenou ity o f 370-500 mL) 18:31: 18:32 s, ONCE, 1 [place] injection 00 :00 dose, On Medica l 100 mL [facility] 04/13/22 at 1345, Routine NaCl 0.9% Yes 5mL 5 mL, Slow Un lois (NS) 04-13 IV Push, ity of injection 5 18:14: PRN - SEE [place] mL 11 INSTRUCTIO Medical NS, Branch Starting on 04/13/22 at 1314, Until Discontinu ed, 10 [...] Sat Medica l mg(2.5 mg 03/16/21 at [facility] base)/3 mL 2100, MICHAEL nebulizer [...] IV ity of succ 01:57: 02:11 Push, [place] (SOLU-MEDRO 00 :00 ONCE, 1 Medic al L) dose, Sat Branch injection 03/16/21 at 125 mg 2100, STAT ipratropium 2020- No 3mL 3 mL, Univ ers -albuteroL 03-17 Inhalation it y of (DUONEB) 01:57: 02:15 , ONCE, 1 [place] 0.5 mg-3 00 :00 dose, Sat Medica l mg(2.5 mg 03/16/21 at [place] ch base)/3 mL 2099, MICHAEL nebulizer solution 3 mL ipratropium No 3mL 3 mL, Univ ers -albuteroL 03-17 Inhalation it y of (DUONE) 01:57: 02:15 , ONCE, 1 [place] as [...] IV ity of succ 01:57: 02:11 Push, [place] (SOLU-MEDRO 00 :00 ONCE, 1 Medic al L) dose, Sat Branch injection 03/16/21 at 125 mg 2100, STAT ipratropium No 3mL 3 mL, Univ ers -albuteroL 03-17 Inhalation it y of (ONE) 01:57: 02:15 , ONCE, 1 [place] 0.5 mg-3 00 :00 dose, Sat Medica l mg(2.5 mg 03/16/21 at [place] ch base)/3 mL 2099, MICHAEL nebulizer solution 3 mL levoFLOXaci 2020- No [id number] 500mg Take 1 Univers n 500 mg 03-17 tablet by ity o f tablet 00:00: 04:59 mouth [place] 00 :00 daily for Medical 6 days. Branch levoFLOXaci 2020- No [id number] 500mg Take 1 Univers n 500 mg 03-17 tablet by ity o f tablet 00:00: 04:59 mouth [place] 00 :00 daily for Medical 6 days. Branch levoFLOXaci 2020-0 2020- No [id number] 500mg Take 1 Univers n 500 mg 03-17 tablet by ity o f tablet 00:00: 04:59 mouth [place] 00 :00 daily for Medical 6 days. Branch levoFLOXaci 2020- No [id number] 500mg Take 1 Univers n 500 mg 03-17 tablet by ity o f tablet 00:00: 04:59 mouth [place] 00 :00 daily for Medical 6 days. Branch predniSONE 2020- No [id number] 30mg Take 3 Univers 10 mg 03-17 tablets by ity of tablet 00:00: 04:59 mouth [place] 00 :00 daily for Medical 4 days. Branch predniSONE No [id number] 30mg Take 3 Univers 10 mg 03-17 tablets by ity of tablet 00:00: 04:59 mouth [place] 00 :00 daily for Medical 4 days. Branch predniSONE 2020- No [id number] 30mg Take 3 Univers 10 mg 03-17 tablets by ity of tablet 00:00: 04:59 mouth [place] 00 :00 daily for Medical 4 days. Branch predniSONE No [id number] 30mg Take 3 Univers 10 mg 03-17 tablets by ity of tablet 00:00: 04:59 mouth [place] 00 :00 daily for Medical 4 days. Branch albuterol 2020- No [id number] 4{puff} 4 Puff, Univers (VENTOLIN) 03-15 Inhalation it y of inhaler 4 01:45: 00:44 , ONCE, 1 [place] Puff 00 :00 dose, [facility] Medical 03/14/21 at [place] 2044, Routine dexamethaso No [id number] 10mg 10 mg, Univers ne 03-15- Intramuscu ity of (DECADRON) 01:45: 00:45 lar, ONCE, [place] injection 00 :00 1 dose, Medical 10 mg [facility] 03/14/21 at 2044, Routine albuterol Yes [id number] 2.5mg Inhale 3 Univers 2.5 mg /3 - mL every 4 ity of mL (0.083 00:00: (four) [place] %) 00 hours as Medical nebulizer needed for Bran ch solution Wheezing or Shortness of Breath. albuterol 2020-0 Yes [id number] 2.5mg Inhale 3 Univers 2.5 mg /3 8-27 mL every 4 ity of mL (0.083 00:00: (four) [place] %) 00 hours as Medical nebulizer needed for Bran ch solution Wheezing or Shortness of Breath. albuterol 2020-0 Yes [id number] 2.5mg Inhale 3 Univers 2.5 mg /3 8-27 mL every 4 ity of mL (0.083 00:00: (four) [place] %) 00 hours as Medical nebulizer needed for Bran ch solution Wheezing or Shortness of Breath. albuterol 2020-0 Yes [id number] 2.5mg Inhale 3 Univers 2.5 mg /3 8-27 mL every 4 ity of mL (0.083 00:00: (four) [place] %) 00 hours as Medical nebulizer needed for Bran ch solution Wheezing or Shortness of Breath. albuterol 2020-0 Yes [id number] 2.5mg Inhale 3 Univers 2.5 mg /3 8-27 mL every 4 ity of mL (0.083 00:00: (four) [place] %) 00 hours as Medical nebulizer needed for Bran ch solution Wheezing or Shortness of Breath. albuterol 2020-0 Yes [id number] 2.5mg Inhale 3 Univers 2.5 mg /3 8-27 mL every 4 ity of mL (0.083 00:00: (four) [place] %) 00 hours as Medical nebulizer needed for Bran ch solution Wheezing or Shortness of Breath. albuterol 2020-0 Yes [id number] 2.5mg Inhale 3 Univers 2.5 mg /3 8-27 mL every 4 ity of mL (0.083 00:00: (four) [place] %) 00 hours as Medical nebulizer needed for Bran ch solution Wheezing or Shortness of Breath. albuterol 2020-0 Yes [id number] 2.5mg Inhale 3 Univers 2.5 mg /3 8-27 mL every 4 ity of mL (0.083 00:00: (four) [place] %) 00 hours as Medical nebulizer needed for Bran ch solution Wheezing or Shortness of Breath. albuterol 2020-0 Yes [id number] 2.5mg Inhale 3 Univers 2.5 mg /3 8-27 mL every 4 ity of mL (0.083 00:00: ([facility] [place] %) 00 hours as Medical nebulizer needed for Bran ch solution Wheezing or Shortness of Breath. albuterol 2020-0 Yes [id number] 2.5mg Inhale 3 Univers 2.5 mg /3 8-27 mL every 4 ity of mL (0.083 00:00: ([facility] [place] %) 00 hours as Medical nebulizer needed for Bran ch solution Wheezing or Shortness of Breath. albuterol 2020-0 Yes [id number] 2.5mg Inhale 3 Univers 2.5 mg /3 8-27 mL every 4 ity of mL (0.083 00:00: ([facility] [place] %) 00 hours as Medical nebulizer needed for Bran ch solution Wheezing or Shortness of Breath. albuterol 2020-0 Yes [id number] 2.5mg Inhale 3 Univers 2.5 mg /3 8-27 mL every 4 ity of mL (0.083 00:00: ([facility] [place] %) 00 hours as Medical nebulizer needed for Bran ch solution Wheezing or Shortness of Breath. albuterol 2020-0 Yes [id number] 2.5mg Inhale 3 Univers 2.5 mg /3 8-27 mL every 4 ity of mL (0.083 00:00: ([facility] [place] %) 00 hours as Medical nebulizer needed for Bran ch solution Wheezing or Shortness of Breath. albuterol 2020-0 Yes [id number] 2.5mg Inhale 3 Univers 2.5 mg /3 8-27 mL every 4 ity of mL (0.083 00:00: (four) [place] %) 00 hours as Medical nebulizer needed for Bran ch solution Wheezing or Shortness of Breath. albuterol 2020-0 Yes [id number] 2.5mg Inhale 3 Univers 2.5 mg /3 8-27 mL every 4 ity of mL (0.083 00:00: (four) [place] %) 00 hours as Medical nebulizer needed for Bran ch solution Wheezing or Shortness of Breath. albuterol 2020-0 Yes [id number] 2.5mg Inhale 3 Univers 2.5 mg /3 8-27 mL every 4 ity of mL (0.083 00:00: (four) [place] %) 00 hours as Medical nebulizer needed for Bran ch solution Wheezing or Shortness of Breath. albuterol 0 Yes [id number] 2.5mg Inhale 3 Univers 2.5 mg /3 8-27 mL every 4 ity of mL (0.083 00:00: (four) [place] %) 00 hours as Medical nebulizer needed for Bran ch solution Wheezing or Shortness of Breath. albuterol 0 Yes [id number] 2.5mg Inhale 3 Univers 2.5 mg /3 [...] 8-03 mouth. ity of ORAL) 19:45: [address] levetiracet Yes Take by Uni vers am (KEPPRA 8-03 mouth. ity of ORAL) 19:45: [address] levetiracet 0 Yes Take by Uni vers am (KEPPRA 8-03 mouth. ity of ORAL) 19:45: [address] levetiracet 0 Yes Take by Uni vers am (KEPPRA 8-03 mouth. ity of ORAL) 19:45: [address] levetiracet 0 Yes Take by Uni vers am (KEPPRA 8-03 mouth. ity of ORAL) 19:45: [address] levetiracet 0 Yes Take by Uni vers am (KEPPRA 8-03 mouth. ity of ORAL) 19:45: [place] 33 Medical Branch LISINOPRIL- 2020- Take by Un lois HYDROCHLORO 02-19 mouth. ity o f THIAZIDE 19:41: 00:00 [place] ORAL 15 :00 Medical Branch dicyclomine No 20mg 20 mg, Uni vers (BENTYL) [...] Medica l NaCl 0.9% 02/19/21 at [facility] h (NS) 50 mL 1415, 50 piggyback mL morpHINE No 4mg 4 mg, Slow Un lois injection 4 02-19 IV Push, ity of mg 17:15: 17:05 ONCE, 1 [place] 00 :00 dose, Tue Medical 02/19/21 at Branch 1215, STAT NaCl 0.9% No 1000mL at 999 Uni vers (NS) bolus 02-19 mL/hr, ity of infusion 17:15: 19:04 1,000 mL, [place] as 1,000 mL 00 :00 IV Medical Infusion, Branch ONCE, 1 dose, 02/19/21 at 1215, STAT ondansetron No 4mg 4 mg, Slow Univers (ZOFRAN 02-19 IV Push, ity of (PF)) 17:00: 15:59 ONCE, 1 [place] injection 4 00 :00 dose, Tue Med ical mg 02/19/21 at Branch 1200, MICHAEL iopamidol 2020- No [id number] 100mL 100 mL, Univers (ISOVUE 02-19 Intravenou ity o f 370-500 mL) 16:35: 16:45 s, ONCE, 1 [place] injection 00 :00 dose, Tue Medic al 100 mL 02/19/21 at Branch 1145, Routine levetiracet 2020-0 Yes Take by Uni vers am (KEPPRA 8-03 mouth. ity of ORAL) 14:45: [address] levetiracet 2020-0 Yes Take by Uni vers am (KEPPRA 8-03 mouth. ity of ORAL) 14:45: [address] levetiracet 2020-0 Yes Take by Uni vers am (KEPPRA 8-03 mouth. ity of ORAL) 14:45: [address] levetiracet 2020-0 Yes Take by Uni vers am (KEPPRA 8-03 mouth. ity of ORAL) 14:45: [address] levetiracet 2020-0 Yes Take by Uni vers am (KEPPRA 8-03 mouth. ity of ORAL) 14:45: [address] proMETHazin 2020-0 Yes [id number] 25mg Take 1 Univers e 25 mg 8-03 tablet by ity of tablet 00:00: mouth [place] 00 every 6 Medical (six) Branch hours as needed for Nausea and Vomiting (N/V). dicyclomine 2020-0 Yes [id number] 20mg Take 1 Univers 20 mg 8-03 tablet by ity of tablet 00:00: mouth 4 [place] 00 (four) Medical times Branch daily as needed for Abdominal pain. proMETHazin 2020-0 Yes [id number] 25mg Take 1 Univers e 25 mg 8-03 tablet by ity of tablet 00:00: mouth [place] 00 every 6 Medical (six) Branch hours as needed for Nausea and Vomiting (N/V). dicyclomine 2020-0 Yes [id number] 20mg Take 1 Univers 20 mg 8-03 tablet by ity of tablet 00:00: mouth 4 [place] 00 (four) Medical times Branch daily as needed for Abdominal pain. proMETHazin 202-0 Yes [id number] 25mg Take 1 Univers e 25 mg 8-03 tablet by ity of tablet 00:00: mouth [place] 00 every 6 Medical (six) Branch hours as needed for Nausea and Vomiting (N/V). dicyclomine 2021-0 Yes [id number] 20mg Take 1 Univers 20 mg 8-03 tablet by ity of tablet 00:00: mouth 4 [place] 00 (four) Medical times Branch daily as needed for Abdominal pain. proMETHazin 1-0 Yes [id number] 25mg Take 1 Univers e 25 mg 8-03 tablet by ity of tablet 00:00: mouth [place] 00 every 6 Medical (six) Branch hours as needed for Nausea and Vomiting (N/V). dicyclomine 2020-0 Yes [id number] 20mg Take 1 Univers 20 mg 8-03 tablet by ity of tablet 00:00: mouth 4 00 (four) Medical times Branch daily as needed for Abdominal pain. proMETHazin 2020-0 Yes [id number] 25mg Take 1 Univers e 25 mg 8-03 tablet by ity of tablet 00:00: mouth [place] 00 every 6 Medical (six) Branch hours as needed for Nausea and Vomiting (N/V). dicyclomine 2020-0 Yes [id number] 20mg Take 1 Univers 20 mg 8-03 tablet by ity of tablet 00:00: mouth (four) Medical times Branch daily as needed for Abdominal pain. proMETHazin 2020-0 Yes [id number] 25mg Take 1 Univers e 25 mg 8-03 tablet by ity of tablet 00:00: mouth [place] 00 every 6 Medical (six) Branch hours as needed for Nausea and Vomiting (N/V). dicyclomine 2020-0 Yes [id number] 20mg Take 1 Univers 20 mg 8-03 tablet by ity of tablet 00:00: mouth (four) Medical times Branch daily as needed for Abdominal pain. proMETHazin 2020-0 Yes [id number] 25mg Take 1 Univers e 25 mg 8-03 tablet by ity of tablet 00:00: mouth [place] 00 every 6 Medical (six) Branch hours as needed for Nausea and Vomiting (N/V). dicyclomine 202-0 Yes [id number] 20mg Take 1 Univers 20 mg 8-03 tablet by ity of tablet 00:00: mouth 00 (four) Medical times Branch daily as needed for Abdominal pain. proMETHazin 2020-0 Yes [id number] 25mg Take 1 Univers e 25 mg 8-03 tablet by ity of tablet 00:00: mouth [place] 00 every 6 Medical (six) Branch hours as needed for Nausea and Vomiting (N/V). dicyclomine 2021-0 Yes [id number] 20mg Take 1 Univers 20 mg 8-03 tablet by ity of tablet 00:00: mouth 4 (four) Medical times Branch daily as needed for Abdominal pain. proMETHazin 2020-0 Yes [id number] 25mg Take 1 Univers e 25 mg 8-03 tablet by ity of tablet 00:00: mouth [place] 00 every 6 Medical (six) Branch hours as needed for Nausea and Vomiting (N/V). dicyclomine 2020-0 Yes [id number] 20mg Take 1 Univers 20 mg 8-03 tablet by ity of tablet 00:00: mouth (four) Medical times Branch daily as needed for Abdominal pain. proMETHazin 2020-0 Yes [id number] 25mg Take 1 Univers e 25 mg 8-03 tablet by ity of tablet 00:00: mouth [place] 00 every 6 Medical (six) Branch hours as needed for Nausea and Vomiting (N/V). dicyclomine 2020-0 Yes [id number] 20mg Take 1 Univers 20 mg 8-03 tablet by ity of tablet 00:00: mouth (four) Medical times Branch daily as needed for Abdominal pain. proMETHazin 2020-0 Yes [id number] 25mg Take 1 Univers e 25 mg 8-03 tablet by ity of tablet 00:00: mouth [place] 00 every 6 Medical (six) Branch hours as needed for Nausea and Vomiting (N/V). dicyclomine 2020-0 Yes [id number] 20mg Take 1 Univers 20 mg 8-03 tablet by ity of tablet 00:00: mouth (four) Medical times Branch daily as needed for Abdominal pain. proMETHazin 2020-0 Yes [id number] 25mg Take 1 Univers e 25 mg 8-03 tablet by ity of tablet 00:00: mouth [place] 00 every 6 Medical (six) Branch hours as needed for Nausea and Vomiting (N/V). dicyclomine 2020-0 Yes [id number] 20mg Take 1 Univers 20 mg 8-03 tablet by ity of tablet 00:00: mouth 4 (four) Medical times Branch daily as needed for Abdominal pain. proMETHazin 2020-0 Yes [id number] 25mg Take 1 Univers e 25 mg 8-03 tablet by ity of tablet 00:00: mouth [place] 00 every 6 Medical (six) Branch hours as needed for Nausea and Vomiting (N/V). dicyclomine 2021-0 Yes [id number] 20mg Take 1 Univers 20 mg 8-03 tablet by ity of tablet 00:00: mouth (four) Medical times Branch daily as needed for Abdominal pain. proMETHazin 2020-0 Yes [id number] 25mg Take 1 Univers e 25 mg 8-03 tablet by ity of tablet 00:00: mouth 00 every 6 Medical (six) Branch hours as needed for Nausea and Vomiting (N/V). dicyclomine 2020-0 Yes [id number] 20mg Take 1 Univers 20 mg 8-03 tablet by ity of tablet 00:00: mouth (four) Medical times Branch daily as needed for Abdominal pain. proMETHazin 2020-0 Yes [id number] 25mg Take 1 Univers e 25 mg 8-03 tablet by ity of tablet 00:00: mouth 00 every 6 Medical (six) Branch hours as needed for Nausea and Vomiting (N/V). dicyclomine 2020-0 Yes [id number] 20mg Take 1 Univers 20 mg 8-03 tablet by ity of tablet 00:00: mouth (four) Medical times Branch daily as needed for Abdominal pain. proMETHazin 2020-0 Yes [id number] 25mg Take 1 Univers e 25 mg 8-03 tablet by ity of tablet 00:00: mouth 00 every 6 Medical (six) Branch hours as needed for Nausea and Vomiting (N/V). dicyclomine 2020-0 Yes [id number] 20mg Take 1 [facility] 20 mg 8-03 tablet by ity of tablet 00:00: mouth (four) Medical times Branch daily as needed for Abdominal pain. proMETHazin 2020-0 Yes [id number] 25mg Take 1 Univers e 25 mg 8-03 tablet by ity of tablet 00:00: mouth [place] 00 every 6 Medical (six) Branch hours as needed for Nausea and Vomiting (N/V). dicyclomine 2021-0 Yes [id number] 20mg Take 1 Univers 20 mg 8-03 tablet by ity of tablet 00:00: mouth (four) Medical times Branch daily as needed for Abdominal pain. proMETHazin 2021-0 Yes [id number] 25mg Take 1 Univers e 25 mg 8-03 tablet by ity of tablet 00:00: mouth [place] 00 every 6 Medical (six) Branch hours as needed for Nausea and Vomiting (N/V). dicyclomine Yes [id number] 20mg Take 1 Univers 20 mg 8-03 tablet by ity of tablet 00:00: mouth 4 00 (four) Medical times Branch daily as needed for Abdominal pain. proMETHazin Yes [id number] 25mg Take 1 Univers e 25 mg 8-03 tablet by ity of tablet 00:00: mouth [place] 00 every 6 Medical (six) Branch hours as needed for Nausea and Vomiting (N/V). dicyclomine Yes [id number] 20mg Take 1 Univers 20 mg 8-03 [...] 00 :00 TWICE A Medical DAY Branch pantoprazol Yes 40mg Take 40 mg Univers e 7-24 by mouth ity of (PROTONIX) 20:05: daily. [place] 40 mg EC Medical tablet Branch ondansetron Yes 4mg Take 4 mg U nivers (ZOFRAN) 4 7-24 by mouth ity o f mg tablet 20:05: every 8 [place] [id number] (eight) Medical hours as Branch needed. pantoprazol Yes 40mg Take 40 mg Univers e 7-24 by mouth ity of (PROTONIX) 20:05: daily. [place] 40 mg EC Medical tablet Branch ondansetron Yes 4mg Take 4 mg U nivers (ZOFRAN) 4 7-24 by mouth ity o f mg tablet 20:05: every 8 [place] [id number] (eight) Medical hours as Branch needed. pantoprazol Yes 40mg Take 40 mg Univers e 7-24 by mouth ity of (PROTONIX) 20:05: daily. [place] 40 mg EC Medical tablet Branch ondansetron 2018-0 Yes 4mg Take 4 mg U nivers (ZOFRAN) 4 7-24 by mouth ity o f mg tablet 20:05: every 8 [place] [id number] (eight) Medical hours as Branch needed. pantoprazol 2018-0 Yes 40mg Take 40 mg Univers e 7-24 by mouth ity of (PROTONIX) 20:05: daily. [place] 40 mg EC Medical tablet Branch LISINOPRIL- 0 Yes Take by Uni vers HYDROCHLORO 7-24 mouth. ity of THIAZIDE 20:05: [place] ORAL Medical Branch ondansetron 0 Yes 4mg Take 4 mg U nivers (ZOFRAN) 4 7-24 by mouth ity o f mg tablet 20:05: every 8 [place] [id number] (eight) Medical hours as Branch needed. pantoprazol 2017-0 Yes 40mg Take 40 mg Univers e 7-24 by mouth ity of (PROTONIX) 20:05: daily. [place] 40 mg EC Medical tablet Branch ondansetron 2017-0 Yes 4mg Take 4 mg U nivers (ZOFRAN) 4 7-24 by mouth ity o f mg tablet 20:05: every 8 [place] [id number] (eight) Medical hours as Branch needed. pantoprazol 2017-0 Yes 40mg Take 40 mg Univers e 7-24 by mouth ity of (PROTONIX) 20:05: daily. [place] 40 mg EC Medical tablet Branch ondansetron 0 Yes 4mg Take 4 mg U nivers (ZOFRAN) 4 7-24 by mouth ity o f mg tablet 20:05: every 8 [place] [id number] (eight) Medical hours as Branch needed. pantoprazol 2017-0 Yes 40mg Take 40 mg Univers e 7-24 by mouth ity of (PROTONIX) 20:05: daily. [place] 40 mg EC Medical tablet Branch ondansetron 2017-0 Yes 4mg Take 4 mg U nivers (ZOFRAN) 4 7-24 by mouth ity o f mg tablet 20:05: every 8 [place] [id number] (eight) Medical hours as Branch needed. lisinopril- 0 Yes 1{tbl} Take 1 Un [...] 7-24 by mouth ity of 19:58: daily. [place] [address] Medical Branch loratadine Yes Take by Univ ers (CLARITIN 7-24 mouth ity of LIQUI-GEL) 19:58: daily. [place] 10 mg 14 Medical capsule Branch MULTIVITAMI Yes 1{tbl} Take 1 Tab Univers N ORAL 7-24 by mouth ity of 19:58: daily. [place] [address] Medical Branch loratadine Yes Take by Univ ers (CLARITIN 7-24 mouth ity of LIQUI-GEL) 19:58: daily. [place] 10 mg 14 Medical capsule Branch MULTIVITAMI Yes 1{tbl} Take 1 Tab Univers N ORAL 7-24 by mouth ity of 19:58: daily. [place] [address] Medical Branch loratadine Yes Take by Univ ers (CLARITIN 7-24 mouth ity of LIQUI-GEL) 19:58: daily. [place] 10 mg 14 Medical capsule Branch MULTIVITAMI Yes 1{tbl} Take 1 Tab Univers N ORAL 7-24 by mouth ity of 19:58: daily. [place] [address] Medical Branch loratadine 0 Yes Take by Univ ers (CLARITIN 7-24 mouth ity of LIQUI-GEL) 19:58: daily. [place] 10 mg 14 Medical capsule Branch MULTIVITAMI Yes 1{tbl} Take 1 Tab Univers N ORAL 7-24 by mouth ity of 19:58: daily. [place] [address] Medical Branch loratadine Yes Take by Univ ers (CLARITIN 7-24 mouth ity of LIQUI-GEL) 19:58: daily. [place] 10 mg 14 Medical capsule Branch MULTIVITAMI 2018-0 Yes 1{tbl} Take 1 Tab Univers N ORAL 7-24 by mouth ity of 19:58: daily. [place] 14 Medical Branch loratadine 2018-0 Yes Take by [facility] ers (CLARITIN 7-24 mouth ity of LIQUI-GEL) 19:58: daily. [place] 10 mg 14 Medical capsule Branch MULTIVITAMI 2018-0 Yes 1{tbl} Take 1 Tab Univers N ORAL 7-24 by mouth ity of 19:58: daily. [place] [address] Medical Branch loratadine 2018-0 Yes Take by [facility] ers (CLARITIN 7-24 mouth ity of LIQUI-GEL) [...] 7-24 by mouth ity of 14:58: daily. [place] [address] Medical Branch loratadine Yes Take by Univ ers (CLARITIN 7-24 mouth ity of LIQUI-GEL) 14:58: daily. [place] 10 mg 14 Medical capsule Branch MULTIVITAMI Yes 1{tbl} Take 1 Tab Univers N ORAL 7-24 by mouth ity of 14:58: daily. [place] [address] Medical Branch loratadine Yes Take by Univ ers (CLARITIN 7-24 mouth ity of LIQUI-GEL) 14:58: daily. [place] 10 mg 14 Medical capsule Branch MULTIVITAMI Yes 1{tbl} Take 1 Tab Univers N ORAL 7-24 by mouth ity of 14:58: daily. [place] [address] Medical Branch loratadine Yes Take by Univ ers (CLARITIN 7-24 mouth ity of LIQUI-GEL) 14:58: daily. [place] 10 mg 14 Medical capsule Branch MULTIVITAMI Yes 1{tbl} Take 1 Tab Univers N ORAL 7-24 by mouth ity of 14:58: daily. [place] [address] Medical Branch loratadine Yes Take by Univ ers (CLARITIN 7-24 mouth ity of LIQUI-GEL) 14:58: daily. [place] 10 mg 14 Medical capsule Branch MULTIVITAMI Yes 1{tbl} Take 1 Tab Univers N ORAL 7-24 by mouth ity of 14:58: daily. [place] [address] Medical Branch loratadine Yes Take by Univ ers (CLARITIN 7-24 mouth ity of LIQUI-GEL) 14:58: daily. [place] 10 mg 14 Medical capsule Branch proMETHazin [...] Immunizations Ordered Filled Immunization Date Status Comments [facility] e Immunization Name Name SARS-COV-2 COVID-19 [...] Unive rsity of PFIZER VACCINE 00:00:00 [place] [facility] kwame Branch SARS-COV-2 COVID-19 2021-05-24 Completed Unive rsity of PFIZER VACCINE 00:00:00 [place] [facility] kwame Branch SARS-COV-2 COVID-19 2021-05-24 Completed Unive rsity of PFIZER VACCINE 00:00:00 [place] [facility] kwame Branch SARS-COV-2 COVID-19 2021-05-24 Completed Unive rsity of PFIZER VACCINE 00:00:00 [place] [facility] Branch SARS-COV-2 COVID-19 2021-05-24 Completed Unive rsity of PFIZER VACCINE 00:00:00 [place] [facility] kwame Branch SARS-COV-2 COVID-19 2021-05-24 Completed Unive rsity of PFIZER VACCINE 00:00:00 [place] [facility] kwame Branch SARS-COV-2 COVID-19 2021-05-24 Completed Unive rsity of PFIZER VACCINE 00:00:00 [place] [facility] kwame Branch SARS-COV-2 COVID-19 2021-05-24 Completed Unive rsity of PFIZER VACCINE 00:00:00 [place] [facility] Branch SARS-COV-2 COVID-19 2021-05-24 Completed Unive rsity of PFIZER VACCINE 00:00:00 [facility] SARS-COV-2 COVID-19 2021-05-24 Completed Unive rsity of PFIZER VACCINE 00:00:00 [place] [facility] Branch SARS-COV-2 COVID-19 2021-05-24 Completed Unive rsity of PFIZER VACCINE 00:00:00 [facility] [place] [facility] SARS-COV-2 COVID-19 2021-05-03 Completed Unive rsity of PFIZER VACCINE 00:00:00 [facility] [place] [facility] SARS-COV-2 COVID-19 2021-05-03 Completed Unive rsity of PFIZER VACCINE 00:00:00 [facility] [place] [facility] SARS-COV-2 COVID-19 2021-05-03 Completed Unive rsity of PFIZER VACCINE 00:00:00 [facility] [place] [facility] SARS-COV-2 COVID-19 2021-05-03 Completed Unive rsity of PFIZER VACCINE 00:00:00 [facility] [place] [facility] SARS-COV-2 COVID-19 2021-05-03 Completed Unive rsity of PFIZER VACCINE 00:00:00 [facility] [place] [facility] SARS-COV-2 COVID-19 2021-05-03 Completed Unive rsity of PFIZER VACCINE 00:00:00 [facility] [place] [facility] SARS-COV-2 COVID-19 2021-05-03 Completed Unive rsity of PFIZER VACCINE 00:00:00 [facility] [place] [facility] SARS-COV-2 COVID-19 2021-05-03 Completed Unive rsity of PFIZER VACCINE 00:00:00 [facility] [place] [facility] SARS-COV-2 COVID-19 2021-05-03 Completed Unive rsity of PFIZER VACCINE 00:00:00 [facility] [place] [facility] SARS-COV-2 COVID-19 2021-05-03 Completed Unive rsity of PFIZER VACCINE 00:00:00 [facility] [place] [facility] SARS-COV-2 COVID-19 2021-05-03 Completed Unive rsity of PFIZER VACCINE 00:00:00 [facility] [place] [facility] SARS-COV-2 COVID-19 2021-05-03 Completed Unive rsity of PFIZER VACCINE 00:00:00 [facility] [place] [facility] Vital Signs Vital Name Observation Time Observation Value Comments Source Systolic blood 2022-12-11 20:00:00 142 mm[Hg] Univer sity of pressure [facility] Diastolic blood 2022-12-11 20:00:00 90 mm[Hg] Unive rsity of pressure [facility] Respiratory rate 2022-12-11 20:00:00 24 /min Univ ersity of [place] [facility] Heart rate 2022-12-11 18:00:00 101 /min Universi ty of [place] [facility] Oxygen saturation in 2022-12-11 18:00:00 93 /min University of Arterial blood by [facility] kwame Pulse oximetry Branch BMI 2022-12-11 13:55:00 35.43 kg/m2 Universi ty [facility] [place] [facility] Body temperature 2022-12-11 13:55:00 37.22 Radha Univ ersity of [place] [facility] Body weight 2022-12-11 13:55:00 90.719 kg Universi ty [facility] [place] [facility] Systolic blood 2022-11-18 05:34:00 152 mm[Hg] Univer sity of pressure [place] [facility] Diastolic blood 2022-11-18 05:34:00 98 mm[Hg] Unive rsity of pressure [place] [facility] Heart rate 2022-11-18 05:34:00 88 /min Universi ty [facility] [place] [facility] Respiratory rate 2022-11-18 05:34:00 18 /min Univ ersity of [place] [facility] Oxygen saturation in 2022-11-18 05:34:00 97 /min University of [facility] by [facility] Pulse oximetry Branch Body temperature 2022-11-17 22:28:00 37.06 Radha Univ ersity of [place] [facility] Body height 2022-11-17 22:28:00 160 cm Universi ty [facility] [place] [facility] Body weight 2022-11-17 22:28:00 99.791 kg [facility]i [facility] [place] [facility] BMI 2022-11-17 22:28:00 38.97 kg/m2 [facility] [place] [facility] Heart rate 2022-08-02 02:02:00 108 /min [facility] [place] [facility] Respiratory rate 2022-08-02 02:02:00 28 /min Univ ersity of [place] [facility] Oxygen saturation in 2022-08-02 02:02:00 97 /min University of Arterial blood by [place] [facility] kwame Pulse oximetry Branch Body temperature 2022-08-02 01:00:00 36.44 Radha Univ ersity of [place] [facility] Systolic blood 2022-08-01 23:29:00 145 mm[Hg] Univer sity of pressure [place] [facility] Diastolic blood 2022-08-01 23:29:00 103 mm[Hg] Unive rsity of pressure [place] [facility] Body weight 2022-08-01 09:16:00 97.977 kg Universi ty [facility] [place] [facility] BMI 2022-08-01 09:16:00 38.26 kg/m2 [facility] [place] [facility] Body height 2022-07-31 21:54:00 160 cm [facility] [place] [facility] Systolic blood 2022-05-08 16:40:00 146 mm[Hg] Univer sity of pressure [place] [facility] Diastolic blood 2022-05-08 16:40:00 96 mm[Hg] Unive rsity of pressure [place] [facility] Heart rate 2022-05-08 16:40:00 112 /min [facility]i [facility] [place] [facility] Body temperature 2022-05-08 16:40:00 36.78 Radha Univ ersity [facility] [place] [facility] Respiratory rate 2022-05-08 16:40:00 18 /min Univ ersity of [place] [facility] Oxygen saturation in 2022-05-08 16:40:00 94 /min University of Arterial blood by [place] [facility] kwame Pulse oximetry Branch Body height 2022-05-05 23:44:00 160 cm Universi [facility] [place] [facility] Body weight 2022-05-05 23:37:00 81.647 kg [facility] [place] [facility] BMI 2022-05-05 23:37:00 31.89 kg/m2 [facility] [place] [facility] Systolic blood 2022-04-15 18:52:00 104 mm[Hg] Univer sity of pressure [place] [facility] Diastolic blood 2022-04-15 18:52:00 82 mm[Hg] Unive rsity of pressure [place] [facility] Heart rate 2022-04-15 18:52:00 114 /min [facility]i [facility] [place] [facility] Oxygen saturation in 2022-04-15 18:52:00 98 /min University of Arterial blood by [place] [facility] kwame Pulse oximetry Branch Body temperature 2022-04-15 16:14:00 36.28 Radha Univ ers[facility] [place] [facility] Respiratory rate 2022-04-15 16:14:00 17 /min Univ ersity [facility] [place] [facility] Body height 2022-04-13 21:08:00 160 cm [facility] [place] [facility] Body weight 2022-04-13 21:08:00 91.173 kg [facility] [place] [facility] BMI 2022-04-13 21:08:00 35.61 kg/m2 [facility] [place] [facility] Systolic blood 2021-11-23 21:30:00 132 mm[Hg] Univer sity of pressure [place] [facility] Diastolic blood 2021-11-23 21:30:00 76 mm[Hg] Unive rsity of pressure [place] [facility] Heart rate 2021-11-23 21:30:00 95 /min [facility]i [facility] [place] [facility] Respiratory rate 2021-11-23 21:30:00 13 /min Univ ersity of [place] [facility] Oxygen saturation in 2021-11-23 21:30:00 97 /min University of Arterial blood by [place] [facility] kwame Pulse oximetry Branch Body temperature 2021-11-23 20:15:00 37.56 Radha Univ [facility] [place] [facility] Systolic blood 2021-03-17 03:00:00 117 [...] 96 /min University of Arterial blood by [place] [facility] kwame Pulse oximetry Branch Body temperature 2021-03-17 00:39:00 37.11 Radha [facility] [place] [facility] Body [...] 2021-03-15 00:14:00 37.33 Radha Univ ersity of [facility] Respiratory rate 2021-03-15 00:14:00 24 /min Univ ersity of [facility] Body height 2021-03-15 00:14:00 160 cm [facility]i [facility] [place] [facility] [place] Body weight 2021-03-15 00:14:00 58.968 kg [facility] ty [facility] [place] [facility] [place] BMI 2021-03-15 00:14:00 23.03 kg/m2 Universi ty of [facility] Oxygen saturation in 2021-03-15 00:14:00 98 /min University of [facility] by [facility] Pulse oximetry Branch Systolic blood 2021-02-19 18:00:00 131 mm[Hg] Univer sity of pressure [facility] Diastolic blood 2021-02-19 18:00:00 80 mm[Hg] Unive rsity of [facility] Heart rate 2021-02-19 18:00:00 83 /min Universi ty of [facility] Respiratory rate 2021-02-19 18:00:00 18 /min [facility] Oxygen saturation in 2021-02-19 18:00:00 100 /min University of Arterial blood by [facility] Pulse oximetry Branch Body temperature 2021-02-19 15:47:00 37 Radha [facility] Body height 2021-02-19 15:47:00 160 cm [facility]i ty [facility] [place] [facility] [place] Body weight 2021-02-19 15:47:00 58.968 kg [facility]i ty [facility] [place] [facility] [place] BMI 2021-02-19 15:47:00 23.03 kg/m2 Universi [facility] Respiratory rate 2022-08-03 14:40:00 18 /min [facility] Systolic blood 2022-08-03 12:13:00 112 mm[Hg] [facility] Diastolic blood 2022-08-03 12:13:00 77 mm[Hg] [facility] S [facility] Heart rate 2022-08-03 12:13:00 115 /min [facility] Oxygen saturation in 2022-08-03 12:13:00 93 /min [facility] Arterial blood by Medical nter Pulse oximetry Body temperature 2022-08-03 12:00:00 36.83 Radha [facility] Body height 2022-08-02 21:52:00 160.2 cm [facility] Body weight 2022-08-02 21:52:00 95 kg [facility] BMI 2022-08-02 21:52:00 37.02 kg/m2 [facility] BP Systolic 2022-07-24 13:31:00 136 mm[Hg] [...] Date / Time Performing Clinician Source Performed CT HEAD WO CONTRAST 2022-12-11 Alfonso Mulligan [place] o f 18:36:49 [facility] URINE DRUG (IMMUNOASSAY) - 2022-12-11 Alfonso Mulligan Unive rsity of COMPREHENSIVE DRUG SCREEN 17:13:00 [facility] URINALYSIS 2022-12-11 Alfonso Mulligan [place] of 17:13:00 [facility] CT CHEST PULMONARY ANGIOGRAM 2022-12-11 Alfonso Mulligan Uni versity of 16:26:39 [facility] MAGNESIUM 2022-12-11 Alfonso Mulligan [place] of 14:57:00 [facility] COMP. METABOLIC PANEL (36639) 2022-12-11 Alfonso Mulligan Un iversity of 14:57:00 [facility] D-DIMER 2022-12-11 Alfonso Mulligan [place] of 14:15:00 [facility] XR CHEST 1 VW 2022-12-11 Alfnoso Mulligan [place] of 14:10:26 [facility] TROPONIN I 2022-12-11 Alfonso Mulligan [place] of 14:02:00 [facility] CBC WITH DIFF 2022-12-11 Alfonso Mulligan [place] of 14:02:00 [facility] N-TERMINAL PRO-BNP 2022-12-11 Alfonso Mulligan University of 14:02:00 [facility] HB ECG ROUTINE & RHYTHM STRIP 2022-12-11 Alfonso Mulligan Un iversity of 14:01:08 [facility] CONSENT/REFUSAL FOR DIAGNOSIS 2022-12-11 Doctor Unassigned, University of AND TREATMENT 13:52:01 [place] [facility] ECG 12-LEAD 2022-08-03 Unknown, Hl7 Doctor [facility] 05:03:32 [facility] ECG 12-LEAD 2022-08-03 Unknown, Hl7 Doctor [facility] 05:03:32 [facility] ECG 12-LEAD 2022-08-03 Unknown, Hl7 Doctor [facility] 05:03:32 [facility] LIPID PANEL 2022-08-02 Donaldo Hightower [facility] 21:14:00 [facility] TSH/FREE T4 IF INDICATED 2022-08-02 Donaldo Hightower [facility] 21:14:00 [facility] VITAMIN B12 2022-08-[address] [facility] 21:14:00 [facility] HEMOGLOBIN A1C 2022-08-02 Donaldo Hightower [facility] 21:14:00 [facility] COMPREHENSIVE METABOLIC PANEL 2022-08-02 Donaldo Hightower [facility] 21:14:00 [facility] CBC W/PLT COUNT & AUTO 2022-08-02 [facility]onaldo Hightower [facility] DIFFERENTIAL 21:14:00 [facility] RPR 2022-08-[address] [facility] 21:14:00 [facility] HC LAB HIV-1 AG W/HIV-1&2 AB 2022-08-[address] [facility] 21:14:00 [facility] C-REACTIVE PROTEIN 2022-08-[address] [facility] 21:14:00 [facility] CBC W/PLT COUNT & AUTO 2022-08-02 Donaldo Hightower [facility] DIFFERENTIAL 21:14:00 [facility] EKG-SCANNED 2022-08-02 Eliceo Montanez [facility] 00:00:00 Scanning [facility] CT HEAD WO CONTRAST 2022-08-01 [facility] o f 23:52:15 [facility] GALV ONLY - INFLUENZA A B RSV 2022-08-01 Letitia Chambers Un iversity of PCR 18:28:00 [facility] TRANSTHORACIC ECHO (TTE) 2022-08-01 Kylee Montez ity of COMPLETE W/ CONTRAST 14:42:00 [facility] al Branch MAGNESIUM 2022-08-01 Lorenza Her [place] of 10:42:00 [facility] BASIC METABOLIC PANEL (NA, K, 2022-08-01 Lorenza Her Un iversity of CL, CO2, GLUCOSE, BUN, 10:42:00 [place] [facility] ical CREATININE, [place]) Branch CBC WITH DIFF 2022-08-01 Lorenza Her [place] of 10:42:00 [facility] N-TERMINAL PRO-BNP 2022-08-01 Tc [facility] of 10:42:00 [facility] POCT GLUCOSE (AUTOMATED) 2022-08-01 Lorenza Her [facility] ity of 06:56:00 [facility] CRITICAL CARE 2022-07-31 Sav Rondon [place] of 22:31:36 [facility] URINALYSIS 2022-07-31 Sav Rondon [place] of 20:52:00 [facility] URINE DRUG (IMMUNOASSAY) - 2022-07-31 [facility] COMPREHENSIVE DRUG SCREEN W/O 20:52:00 [place] [facility] REFLEX Branch XR CHEST 1 VW 2022-07-31 Sav Rondon [place] of 18:45:17 [facility] LIPASE 2022-07-31 Sav Rondon of 17:58:00 [facility] TROPONIN I 2022-07-31 Sav Rondon [place] of 17:58:00 [facility] COMP. METABOLIC PANEL (03672) 2022-07-31 Sav Rondon iversity of 17:58:00 [facility] CBC WITH DIFF 2022-07-31 Sav Rondon of 17:58:00 [facility] PROTHROMBIN TIME / INR 2022-07-31 Sav Rondonit y of 17:58:00 [facility] ACTIVATED PARTIAL THRMPLAS 2022-07-31 Sav Rondon rsity of DAVID 17:58:00 [facility] N-TERMINAL PRO-BNP 2022-07-31 Sav Rondon [place] of 17:58:00 [facility] HB ECG ROUTINE & RHYTHM STRIP 2022-07-31 Sav Rondon iversity of 17:46:28 [facility] NOTICE OF PRIVACY PRACTICES 2022-07-31 Doctor Unassigned, U niversity of 17:35:38 [place] [facility] CONSENT/REFUSAL FOR DIAGNOSIS 2022-07-31 Doctor Unassigned, University of AND TREATMENT 17:35:13 [place] [facility] PHOSPHORUS 2022-05-08 Shefali [facility] of 05:51:00 [facility] MAGNESIUM 2022-05-08 Shefali [facility] of 05:51:00 [facility] BASIC METABOLIC PANEL (NA, K, 2022-05-08 Shefali [place] U niversity of CL, CO2, GLUCOSE, BUN, 05:51:00 [place] [facility] CREATININE, [place]) Branch CBC WITH DIFF 2022-05-08 Shefali [facility] of 05:51:00 [facility] BASIC METABOLIC PANEL (NA, K, 2022-05-07 [place] [facility] of CL, CO2, GLUCOSE, BUN, 07:09:00 [facility] ical CREATININE, CA) Branch CBC WITH DIFF 2022-05-07 [place] [facility] of 07:09:00 [facility] POCT GLUCOSE (AUTOMATED) 2022-05-07 Brandyn Mcfarlane [facility] ity of 01:16:00 [facility] HB ABO GROUPING 2022-05-06 Ismael Dunn [place] of 05:07:00 [facility] BASIC METABOLIC PANEL (NA, K, 2022-05-06 Shefali [place] [facility] of CL, CO2, GLUCOSE, BUN, 05:04:00 [place] [facility] CREATININE[place]) Branch CBC WITH DIFF 2022-05-06 Shefali [facility] of 05:04:00 [facility] KEPPRA (LEVETIRACETAM) 2022-05-06 Shefali [facility] ty of 05:04:00 [facility] MR LUMBAR SPINE WO CONTRAST 2022-05-06 Kneedler, Ender [facility] n[facility] of 02:54:37 Christopher [facility] ELECTROENCEPHALOGRAM 2022-05-06 Cintron [facility] ty of 00:00:00 [facility] BASIC METABOLIC PANEL (NA, K, 2022-05-05 Lexie Dunn [facility] of CL, CO2, GLUCOSE, BUN, 07:57:00 [facility] ical CREATININE, CA) Branch CBC WITH DIFF 2022-05-05 [facility] of 07:57:00 [facility] PROTHROMBIN TIME / INR 2022-05-05 [facility] ersity of 07:57:00 [facility] ACTIVATED PARTIAL THRMPLAS 2022-05-05 [facility] of DAVID 07:57:00 [facility] FIBRINOGEN 2022-05-05 [facility] of 07:57:00 [facility] EMERGENCY SERVICES AGREEMENTS 2022-05-04 Doctor Unassigned, University of AND AUTHORIZATIONS 05:01:00 [place] [facility] VITAMIN D, 25-OH 2022-04-15 Sen [place] of 16:53:00 [facility] MR THORACIC SPINE WO CONTRAST 2022-04-15 Soumya Chua [facility] of 11:56:19 [facility] MR CERVICAL SPINE WO CONTRAST 2022-04-15 Soumya Chua [facility] of 11:20:00 [facility] BASIC METABOLIC PANEL (NA, K, 2022-04-15 Charmaine Morataya Un i[facility] of CL, CO2, GLUCOSE, BUN, 10:36:[address] [facility] ical CREATININE, CA) Branch TEST, URINE 2022-04-15 Harshil [facility] of 04:39:00 [facility] URINE DRUG (IMMUNOASSAY) - 2022-04-15 [facility] rsity of COMPREHENSIVE DRUG SCREEN 04:39:00 [facility] URINALYSIS 2022-04-15 Harshil [facility] of 04:39:00 [facility] TRANSTHORACIC ECHO (TTE) 2022-04-[address] [facility] ity of COMPLETE W/ CONTRAST 16:37:03 [facility] KEPPRA (LEVETIRACETAM) 2022-04-14 [facility] y of 15:30:00 [facility] MAGNESIUM 2022-04-14 [facility]il [facility] of 10:03:00 [facility] BASIC METABOLIC PANEL (NA, K, 2022-04-14 John Chuaena Un iversity of CL, CO2, GLUCOSE, BUN, 10:03:00 [place] [facility] CREATININE, [place]) Branch MR LUMBAR SPINE WO CONTRAST 2022-04-14 Harshil [facility] ersity of 02:48:12 [facility] MR STROKE BRAIN WO CONTRAST 2022-04-14 Harshil [facility] ersity of 02:29:00 [facility] CT STROKE ANGIOGRAM HEAD 2022-04-13 Sapna Vargas [facility] ersity of 18:40:00 [facility] CT STROKE ANGIOGRAM NECK 2022-04-13 Sapna Vargas [facility] ersity of 18:40:00 [facility] CT STROKE HEAD WO CONTRAST 2022-04-13 Sapna Vargas Un iversity of 18:36:00 [facility] TROPONIN I 2022-04-13 Sapna Vargas [place] of 18:17:00 [facility] THYROID STIMULATING HORMONE 2022-04-13 [facility] ersity of 18:17:00 [facility] BASIC METABOLIC PANEL (NA, K, 2022-04-13 Sapna Vargas [place] of CL, CO2, GLUCOSE, BUN, 18:17:[address] [facility] ical CREATININE, CA) Branch LIPID PANEL (76335)(TOTAL 2022-04-13 [facility] sity of CHOLESTEROL, TRIGLYCERIDES, 18:17:00 [facility]) Branch CBC WITHOUT DIFF 2022-04-13 Sapna Vargas [place] o f 18:17:00 [facility] GLYCOSYLATED HEMOGLOBIN (A1C) 2022-04-13 Soumya Chua Un [facility] of 18:17:00 [facility] PROTHROMBIN TIME / INR 2022-04-13 Sapna Vargas [facility] sity of 18:17:00 [facility] ACTIVATED PARTIAL THRMPLAS 2022-04-13 Sapna Vargas iversity of DAVID 18:17:00 [facility] COVID-19 (ID NOW RAPID 2022-04-13 Sapna Vargas [facility] of TESTING) 18:17:00 [facility] LAB ONLY COVID INTERPRETATION 2022-04-13 Sapna Vargas [place] of 18:17:00 [facility] HB ECG ROUTINE & RHYTHM STRIP 2022-04-13 Sapna Vargas [facility] 18:15:49 [facility] CONSENT/REFUSAL FOR DIAGNOSIS 2022-04-13 Doctor Unassigned, [place] of AND TREATMENT 18:05:14 [place] [facility] HOSPITAL ADMISSION 2022-04-13 Doctor Unassigned, [place] of 05:01:00 [place] [facility] SARS-COV-2 COVID-19 VACCINE 2022-02-19 Doctor Unassigned, U niversity of 12 YRS+,0.3ML,IM (PFIZER - 15:21:12 [place] [facility] URINE DRUG (IMMUNOASSAY) - 2021-11-23 Nichelle Allison U niversity of COMPREHENSIVE DRUG SCREEN W/O 21:21:00 [place] [facility] CT HEAD WO CONTRAST 2021-11-23 Nichelle Allison [facility] ty of 20:58:00 [facility] POCT TEST 2021-11-23 [facility] of 20:46:00 [facility] URINALYSIS 2021-11-23 [facility] o f 20:43:00 [facility] LIPASE 2021-11-23 [facility] o f 20:27:00 [facility] TROPONIN I 2021-11-23 [facility] o f 20:27:00 [facility] COMP. METABOLIC PANEL (71894) 2021-11-23 [facility] of 20:27:00 [facility] CBC WITH DIFF 2021-11-23 [facility] o f 20:27:00 [facility] POCT GLUCOSE (AUTOMATED) 2021-11-23 Doctor Unassigned, Univ ersity of 20:15:00 [place] [facility] SARS-COV-2 COVID-19 2021-05-24 Doctor Unassigned, Universit y of VACCINE,0.3ML,IM (PFIZER) 14:23:12 [place] [facility] SARS-COV-2 COVID-19 2021-05-03 Doctor Unassigned, Universit y of VACCINE,0.3ML,IM (PFIZER) 14:59:29 [place] [facility] EMERGENCY SERVICES AGREEMENTS 2021-04-16 Doctor Unassigned, [place] of AND AUTHORIZATIONS 05:01:00 [place] [facility] URINALYSIS 2021-03-17 Fabrice Chakraborty [place] of 03:09:00 [facility] XR CHEST 1 VW 2021-03-17 Fabrice Chakraborty [place] of 01:45:07 [facility] TROPONIN I 2021-03-17 [facility] 01:35[facility]00 [facility] COMP. METABOLIC PANEL (64950) 2021-03-17 Fabrice Chakraborty Un iversity of 01:35:00 [facility] CBC WITH DIFF 2021-03-17 [facility] of 01:35:00 [facility] N-TERMINAL PRO-BNP 2021-03-17 [facility] of 01:35:00 [facility] COVID-19 (ID NOW RAPID 2021-03-17 Brian Ray [facility] y of TESTING) 00:58:00 [facility] CONSENT/REFUSAL FOR DIAGNOSIS 2021-03-17 Doctor Unassigned, [facility] AND TREATMENT 00:32:59 [place] [facility] COVID-19 (ID NOW RAPID 2021-02-19 Anali Patel [facility] y of TESTING) 17:04:00 [facility] CT ABDOMEN PELVIS W CONTRAST 2021-02-19 Anali Patel Uni versity of 16:41:18 [facility] LIPASE 2021-02-19 Anali Patel [place] of 15:58:00 [facility] COMP. METABOLIC PANEL (08469) 2021-02-19 Anali Patel Un iversity of 15:58:00 [facility] CBC WITH DIFF 2021-02-19 Anali Patel [place] of 15:58:00 [facility] URINALYSIS 2021-02-19 Anali Patel [place] of 15:58:00 [facility] NOTICE OF PRIVACY PRACTICES 2021-02-19 Doctor Unassjulee, U niversity of 15:30:46 [place] [facility] CONSENT/REFUSAL FOR DIAGNOSIS 2021-02-19 Doctor Unassigned, [facility] AND TREATMENT 15:30:30 [place] [facility] Plan of Care Planned Activity Planned Date Details Comments Source Future Scheduled 2025-08-02 Lipid panel (procedure) [facility] 00:00:00 [code = 71565824] Medical Ce nter Future Scheduled 2025-08-02 Lipid panel (procedure) [facility] 00:00:00 [code = 64465476] Medical Ce nter Future Scheduled 2025-08-02 Lipid panel (procedure) [facility] 00:00:00 [code = 71389072] Medical Ce nter Future Scheduled 2025-08-02 Lipid panel (procedure) [facility] 00:00:00 [code = 01114472] Medical Ce nter Future Scheduled 2025-08-02 Lipid panel (procedure) [facility] 00:00:00 [code = 13814161] Medical Ce nter Future Scheduled 2025-08-02 Lipid panel (procedure) [facility] 00:00:00 [code = 80008708] Medical Ce nter Future Scheduled 2025-08-02 Lipid panel (procedure) [facility] 00:00:00 [code = 25029694] Medical Ce nter Future Scheduled 2025-08-02 Lipid panel (procedure) [facility] 00:00:00 [code = 62281185] Medical Ce nter Future Scheduled 2025-08-02 Lipid panel (procedure) [facility] 00:00:00 [code = 42328111] Medical Ce nter Future Scheduled 2025-08-02 Lipid panel (procedure) [facility] 00:00:00 [code = 64697276] Medical Ce nter Future Scheduled 2023-03-20 INFLUENZA [...] [facility] 00:00:00 (Season Ended) [code = [facility] INFLUENZA VACCINE (Season Ended)] Future Scheduled 2022-07-[address] [facility] 00:00:00 (12+) [code = Medical Center DEPRESSION SCREENING (12+)] Future Scheduled 2022-07-[address] [facility] 00:00:00 (12+) [code = Medical Center DEPRESSION SCREENING (12+)] Future Scheduled 2022-07-[address] [facility] 00:00:00 (12+) [code = [facility] DEPRESSION SCREENING (12+)] Future Scheduled 2022-07-[address] [facility] 00:00:00 (12+) [code = [facility] DEPRESSION SCREENING (12+)] Future Scheduled 2022-07-[address] [facility] 00:00:00 (12+) [code = [facility] DEPRESSION SCREENING (12+)] Future Scheduled 2022-07-[address] [facility] 00:00:00 (12+) [code = [facility] DEPRESSION SCREENING (12+)] Future Scheduled 2022-07-[address] [facility] 00:00:00 (12+) [code = [facility] DEPRESSION SCREENING (12+)] Future Scheduled 2022-07-[address] [facility] 00:00:00 (12+) [code = [facility] DEPRESSION SCREENING (12+)] Future Scheduled 2022-07-[address] [facility] 00:00:00 (12+) [code = [facility] DEPRESSION SCREENING (12+)] Future Scheduled 2022-07-[address] [facility] 00:00:00 (12+) [code = [facility] DEPRESSION SCREENING (12+)] Future Scheduled 2022-06-21 [...] cervix Medical C enter (procedure) [code = 927018672] Future Scheduled 1993-01-14 Screening for malignant [facility] 00:00:00 neoplasm of cervix Medical C enter (procedure) [code = 660834722] Future Scheduled 1993-01-14 Screening for malignant [facility] 00:00:00 neoplasm of cervix Medical C enter (procedure) [code = 069990711] Future Scheduled 1993-01-14 Screening for malignant [facility] 00:00:00 neoplasm of cervix Medical C enter (procedure) [code = 135616154] Future Scheduled 1993-01-14 Screening for malignant [facility] 00:00:00 neoplasm of cervix Medical C enter (procedure) [code = 240576495] Future Scheduled 1993-01-14 Screening for malignant [facility] 00:00:00 neoplasm of cervix Medical C enter (procedure) [code = 199553262] Future Scheduled 1993-01-14 Screening for malignant [facility] 00:00:00 neoplasm of cervix Medical C enter (procedure) [code = 992113740] Future Scheduled 1993-01-14 Screening for malignant [facility] 00:00:00 neoplasm of cervix Medical C enter (procedure) [code = 169521702] Future Scheduled 1993-01-14 Screening for malignant [facility] 00:00:00 neoplasm of cervix Medical C enter (procedure) [code = 965497939] Future Scheduled 1993-01-14 Screening for malignant [facility] 00:00:00 neoplasm of cervix Medical C enter (procedure) [code = 149808406] Future Scheduled 1991-01-14 DTAP/TDAP/TD VACCINES CH I [...] breast Medical C enter (procedure) [code = 225528277] Future Scheduled 1972 CT Colonography (combo) [facility] 00:00:00 [code = CT Colonography [facility] (combo)] Future Scheduled 1972 Screening for malignant [facility] 00:00:00 neoplasm of colon Medical Ce nter (procedure) [code = 843818454] Future Scheduled 1972 Screening for malignant [facility] 00:00:00 neoplasm of colon Medical Ce nter (procedure) [code = 639751889] Future Scheduled 1972 Screening for malignant [facility] 00:00:00 neoplasm of colon Medical Ce nter (procedure) [code = 818769696] Future Scheduled 1972 Screening for malignant [facility] 00:00:00 neoplasm of colon Medical Ce nter (procedure) [code = 403737380] Future Scheduled 1972 Sigmoidoscopy [facility]] Medical Christine r Future Scheduled 1972 Screening for malignant [facility] 00:00:00 neoplasm of breast Medical C enter (procedure) [code = 701486287] Future Scheduled 1972 CT Colonography (combo) [facility] 00:00:00 [code = [facility] ([facility] Future Scheduled 1972 Screening for malignant [facility] 00:00:00 neoplasm of colon Medical Ce nter (procedure) [code = 201534709] Future Scheduled 1972 Screening for malignant [facility] 00:00:00 neoplasm of colon Medical Ce nter (procedure) [code = 575152166] Future Scheduled 1972 Screening for malignant [facility] 00:00:00 neoplasm of colon Medical Ce nter (procedure) [code = 226190046] Future Scheduled 1972 Screening for malignant [facility] 00:00:00 neoplasm of colon Medical Ce nter (procedure) [code = 484585902] Future Scheduled 1972 Sigmoidoscopy [facility]] Medical Christine r Future Scheduled 1972 Screening for malignant [facility] 00:00:00 neoplasm of breast Medical C enter (procedure) [code = 771850990] Future Scheduled 1972 CT Colonography (combo) [facility] 00:00:00 [code = CT [facility] ([facility] Future Scheduled 1972 Screening for malignant [facility] 00:00:00 neoplasm of colon Medical Ce nter (procedure) [code = 032694581] Future Scheduled 1972 Screening for malignant [facility] 00:00:00 neoplasm of colon Medical Ce nter (procedure) [code = 455931931] Future Scheduled 1972 Screening for malignant [facility] 00:00:00 neoplasm of colon Medical Ce nter (procedure) [code = 477647682] Future Scheduled 1972 Screening for malignant [facility] 00:00:00 neoplasm of colon Medical Ce nter (procedure) [code = 810978153] Future Scheduled 1972 Sigmoidoscopy [facility]] Medical Cente r Future Scheduled 1972 Screening for malignant [facility] 00:00:00 neoplasm of breast Medical C enter (procedure) [code = 958128222] Future Scheduled 1972 CT Colonography (combo) [facility] 00:00:00 [code = CT [facility] ([facility])] Future Scheduled 1972 Screening for malignant [facility] 00:00:00 neoplasm of colon Medical Ce nter (procedure) [code = 139451780] Future Scheduled 1972 Screening for malignant [facility] 00:00:00 neoplasm of colon Medical Ce nter (procedure) [code = 266444816] Future Scheduled 1972 Screening for malignant [facility] 00:00:00 neoplasm of colon Medical Ce nter (procedure) [code = 109159543] Future Scheduled 1972 Screening for malignant [facility] 00:00:00 neoplasm of colon Medical Ce nter (procedure) [code = 786137026] Future Scheduled 1972 S[facility]oidoscopy [facility]] Medical Christine r Future Scheduled 1972 Screening for malignant [facility] 00:00:00 neoplasm of breast Medical C enter (procedure) [code = 129900021] Future Scheduled 1972 CT Colonography (combo) [facility] 00:00:00 [code = CT [facility] ([facility])] Future Scheduled 1972 Screening for malignant [facility] 00:00:00 neoplasm of colon Medical Ce nter (procedure) [code = 409983308] Future Scheduled 1972 Screening for malignant [facility] 00:00:00 neoplasm of colon Medical Ce nter (procedure) [code = 521727339] Future Scheduled 1972 Screening for malignant [facility] 00:00:00 neoplasm of colon Medical Ce nter (procedure) [code = 473916822] Future Scheduled 1972 Screening for malignant [facility] 00:00:00 neoplasm of colon Medical Ce nter (procedure) [code = 634429574] Future Scheduled 1972 Sigmoidoscopy [facility]] Medical Cente r Future Scheduled 1972 Screening for malignant [facility] 00:00:00 neoplasm of breast Medical C enter (procedure) [code = 658019571] Future Scheduled 1972 CT Colonography (combo) [facility] 00:00:00 [code = CT [facility] ([facility])] Future Scheduled 1972 Screening for malignant [facility] 00:00:00 neoplasm of colon Medical Ce nter (procedure) [code = 477165756] Future Scheduled 1972 Screening for malignant [facility] 00:00:00 neoplasm of colon Medical Ce nter (procedure) [code = 114500365] Future Scheduled 1972 Screening for malignant [facility] 00:00:00 neoplasm of colon Medical Ce nter (procedure) [code = 174455458] Future Scheduled 1972 Screening for malignant [facility] 00:00:00 neoplasm of colon Medical Ce nter (procedure) [code = 478544196] Future Scheduled 1972 Sigmoidoscopy [facility]] Medical Cente r Future Scheduled 1972 Screening for malignant [facility] 00:00:00 neoplasm of breast Medical C enter (procedure) [code = 207006574] Future Scheduled 1972 CT Colonography (combo) [facility] 00:00:00 [code = CT [facility] ([facility])] Future Scheduled 1972 Screening for malignant [facility] 00:00:00 neoplasm of colon Medical Ce nter (procedure) [code = 666711966] Future Scheduled 1972 Screening for malignant [facility] 00:00:00 neoplasm of colon Medical Ce nter (procedure) [code = 269220673] Future Scheduled 1972 Screening for malignant [facility] 00:00:00 neoplasm of colon Medical Ce nter (procedure) [code = 981737662] Future Scheduled 1972 Screening for malignant [facility] 00:00:00 neoplasm of colon Medical Ce nter (procedure) [code = 061199551] Future Scheduled 1972 Sigmoidoscopy [facility]] Medical Cente r Future Scheduled 1972 Screening for malignant [facility] 00:00:00 neoplasm of breast Medical C enter (procedure) [code = 826341685] Future Scheduled 1972 CT Colonography (combo) [facility] 00:00:00 [code = CT [facility] ([facility])] Future Scheduled 1972 Screening for malignant [facility] 00:00:00 neoplasm of colon Medical Ce nter (procedure) [code = 525881781] Future Scheduled 1972 Screening for malignant [facility] 00:00:00 neoplasm of colon Medical Ce nter (procedure) [code = 928386230] Future Scheduled 1972 Screening for malignant [facility] 00:00:00 neoplasm of colon Medical Ce nter (procedure) [code = 061426640] Future Scheduled 1972 Screening for malignant [facility] 00:00:00 neoplasm of colon Medical Ce nter (procedure) [code = 204372598] Future Scheduled 1972 Sigmoidoscopy [facility]code [facility]] Medical Cente r Future Scheduled 1972 Screening for malignant [facility] 00:00:00 neoplasm of breast Medical C enter (procedure) [code = 823839021] Future Scheduled 1972 CT Colonography (combo) [facility] 00:00:00 [code = CT [facility] ([facility])] Future Scheduled 1972 Screening for malignant [facility] 00:00:00 neoplasm of colon Medical Ce nter (procedure) [code = 389718875] Future Scheduled 1972 Screening for malignant [facility] 00:00:00 neoplasm of colon Medical Ce nter (procedure) [code = 375763397] Future Scheduled 1972 Screening for malignant [facility] 00:00:00 neoplasm of colon Medical Ce nter (procedure) [code = 118146812] Future Scheduled 1972 Screening for malignant [facility] 00:00:00 neoplasm of colon Medical Ce nter (procedure) [code = 599670699] Future Scheduled 1972 Sigmoidoscopy [facility]code [facility]] Medical Cente r Future Scheduled 1972 Screening for malignant [facility] 00:00:00 neoplasm of breast Medical C enter (procedure) [code = 194427653] Future Scheduled 1972 CT Colonography (combo) [facility] 00:00:00 [code = CT Colonography [facility] (combo)] Future Scheduled 1972 Screening for malignant [facility] 00:00:00 neoplasm of colon Medical Ce nter (procedure) [code = 496445920] Future Scheduled 1972 Screening for malignant [facility] 00:00:00 neoplasm of colon Medical Ce nter (procedure) [code = 237270531] Future Scheduled 1972 Screening for malignant [facility] 00:00:00 neoplasm of colon Medical Ce nter (procedure) [code = 483990141] Future Scheduled 1972 Screening for malignant [facility] 00:00:00 neoplasm of colon Medical Ce nter (procedure) [code = 660037519] Future Scheduled 1972 Sigmoidoscopy [facility]] Medical Cente r Goal Plan of Care Note [code = 54710-2] Goal Plan of Care Note [code = 67715-9] Goal Plan of Care Note [code = 77648-2] Goal Plan of Care Note [code = 00295-9] Goal Plan of Care Note [code = 37646-8] Goal Plan of Care Note [code = 77120-4] Goal Plan of Care Note [code = 45635-8] Goal Plan of Care Note [code = 47584-2] Goal Plan of Care Note [code = 15565-3] Goal Plan of Care Note [code = 06966-3] Goal Plan of Care Note [code = 70475-0] Goal Plan of Care Note [code = 50876-3] Goal Plan of Care Note [code = 14683-0] Goal Plan of Care Note [code = 48972-2] Goal Plan of Care Note [code = 68592-2] Goal Plan of Care Note [code = 62602-5] Goal Plan of Care Note [code = 61160-9] Goal Plan of Care Note [code = 36169-3] Goal Plan of Care Note [code = 42496-2] Goal Plan of Care Note [code = 78912-1] Goal Plan of Care Note [code = 45807-1] Goal Plan of Care Note [code = 62797-3] Goal Plan of Care Note [code = 10660-6] Goal Plan of Care Note [code = 92185-8] Goal Plan of Care Note [code = 13761-9] Goal Plan of Care Note [code = 17574-5] Goal Plan of Care Note [code = 52359-8] Goal Plan of Care Note [code = 14830-1] Goal Plan of Care Note [code = 33384-6] Goal Plan of Care Note [code = 37278-3] Goal Plan of Care Note [code = 58468-0] Goal Plan of Care Note [code = 65026-9] Goal Plan of Care Note [code = 20815-6] Goal Plan of Care Note [code = 87470-2] Goal Plan of Care Note [code = 40883-8] Encounters Start End Encounter Admission Attending Care Care Encounter Source Date/Time Date/Time Type Type Clinicians Facility Department ID 2021-05-20 Emergency [facility] [id number] Univers 18:48:04 [facility] 2021-05-20 Emergency [facility] [id number] Univers 12:43:40 [facility] 2022-12-11 2022-12-11 Emergency X Alfonso MULLIGAN [facility] ERT [id number] [facility] 08:56[facility] 2022-12-11 Emergency Alfonso Mulligan [facility] 1.2.840.114 10 [id number] Univers 08:56:00 15:29:00 Lorelei HERNANDEZ 350.1.13.10 i ty [facility] 4.2.7.2.686 [facility] [id number] [facility] [address] 2022-11-17 2022-11-18 Emergency X BRIANA, [facility] ERT [id number] Univers 17:25:00 01:19:00 RITCHIE quitashawn of [facility] 2022-11-17 2022-11-18 Emergency Briana, [facility] 1.2.893.410 [id number] Univers 17:25:00 01:19:00 Ritchie Stoner [place] 350.1.13.10 it[place] [id number] [facility] [address] 2022-08-28 2022-08-28 Patient Shy Beckman 1.2.840.114 10 [id number] Univers 00:00:00 00:00:00 Outreach E WALLACE 350.1.13.10 i [place] [id number] [facility] [address] 2022-08-20 2022-08-20 Patient Shy Beckman 1.2.840.114 10 [id number] Univers 00:00:00 00:00:00 Outreach E [place] 350.1.13.10 [place] [id number] [facility] [address] 2022-08-02 2022-08-03 [facility] [id number] 17:30:00 14:29:00 Encounter Jen Yepez, [facility] 2022-08-02 2022-08-03 Outpatient ER CORRY, [facility] Neurology [id number] [facility] 17:30:00 14:29:00 [facility] 2022-08-02 2022-08-03 [facility] [id number] 17:30:00 14:29:00 Encounter Jen Yepez, [facility] 2022-08-03 2022-08-03 Orders [facility] [id number] 00:00:00 00:00:00 Only [facility] 2022-08-03 2022-08-03 Orders [facility] [id number] 00:00:00 00:00:00 Only [facility] 2022-08-02 2022-08-02 Travel [facility] [id number] [facility] 00:[facility]:00 [facility] 2022-08-02 2022-08-02 Travel [facility] [id number] [facility] 00:[facility] 00:[facility]:00 [facility] 2022-07-31 2022-08-01 Inpatient X SERGIOBENJAMÍN [facility] [id number] Univers 11:42:00 21:48:00 LORENZA najera [facility] 2022-07-31 2022-08-01 [facility] Sav Rondon [facility] 1.2.840.1 14 [id number] Univers 11:42:00 21:48:00 Encounter Lorenza Her BAYONNE 350.1.13.10 ity of [place] 4.2.7.2.686 [facility] [phone] [facility] kwame [address] 2022-08-01 2022-08-01 Transition BLAYNE Nicole 1.2.840.114 [id number] Univers 00:00:00 00:00:00 of Care Maria Teresa [place] 350.1.13.10 ity of [place] 4.2.7.2.[address] [facility] [id number] [facility] kwame [address] 2022-07-28 2022-07-28 Outpatient SFA SFA [id number] Adria 14:41:38 14:41:38 0109 F Mauricio 2022-07-28 2022-07-28 Outpatient [id number]- [id number] 3d c2tz92-0 00:00:00 00:00:00 Visit [id number] 540-4579-8 -8yr9-2vz fa1-9db46d 68b266oq5 537df0 2022-07-24 2022-07-24 Outpatient SFA SFA [id number] 023 Adria 13:24:40 13:24:40 0105 F Mauricio 2022-05-23 2022-05-23 Outpatient SFA SFA [id number] 022 Adria 14:51:01 14:51:01 1104 F Mauricio 2022-05-23 2022-05-23 Outpatient f7bydw87- [id number] f9 xlrx79-c 00:00:00 00:00:00 Visit l59z-6gj0 62f-4bb7-b -p70s-5e7 33a-4m5140 [id number] 7850ee 2022-05-04 2022-05-08 Outpatient X CHANTEL MATTHEWS [facility] S NS [id number] Univers 20:22:00 14:44:00 CHANTEL MATTHEWS ity [facility] 2022-05-04 2022-05-08 Emergency Brandyn Mcfarlane 1.2.840.1 14 [id number] Univers 20:22:00 14:44:00 Chantel Matthews 350.1.13 .10 ity of [facility] 4.2.7.2.686 [facility] [id number] [place] [address] [place] 2022-04-13 2022-04-15 Inpatient X [facility] BERNARDINO [id number] Univers 13:06:00 15:00:00 [facility]y [facility] 2022-04-13 2022-04-15 [facility] Sapna Vargas 1.2.84 0.114 [id number] Univers 13:06:00 15:00:00 Encounter Glory Esteves 350. 1.13.10 ity of [facility] 4.2.7.2.686 [place] [id number] [facility] [address] 2022-02-19 2022-02-19 Imm/Inj Vaccine, [facility] [place] 1.2.840.114 [id number] Univers 10:20:00 10:30:00 Visit Jose Frederick 350.1.13.10 [place] [facility] [id number] [facility] [address] 2022-02-19 2022-02-19 Outpatient R JOSE FREDERICK [facility] [id number] Univers 10:20:00 10:20:00 ity of [facility] 2021-11-23 2021-11-23 Emergency X ESTEFANY [facility] ERT [id number] Univers 15:07:00 17:03:00 NICHELLE ity of [facility] 2021-11-23 2021-11-23 Emergency Sav Rondon [facility] 1.2.840. 114 [id number] Univers 15:07:00 17:03:00 AjNichelle simmons F SOHABRANDI 350.1.13. 10 ity of [place] 4.2.7.2.686 [facility] [id number] [facility] [address] 2021-11-21 2021-11-21 Outpatient R [facility] [id number] Univers 09:40:00 09:40:00 ity of [facility] 2021-05-24 2021-05-24 Outpatient R PASHA JOSE [facility] [id number] Univers 09:30:00 09:30:00 ity of [facility] 2021-05-24 2021-05-24 Imm/Inj Vaccine, [facility] [place] 1.2.840.114 [id number] Univers 08:47:51 08:57:51 Visit Jose Frederick 350.1.13.10 [place] [facility] [id number] [address] 2021-05-03 2021-05-03 Outpatient R JOSE FREDERICK [facility] [id number] Univers 09:40:00 09:59:35 ity of [facility] 2021-05-03 2021-05-03 Imm/Inj Vaccine, [facility] [place] 1.2.840.114 [id number] Univers 09:17:43 09:59:35 Visit Jose Frederick 350.1.13.10 [place] [facility] [id number] [address] 2021-04-16 2021-04-16 Orders Doctor THEODORE 1.2.840.114 [id number] Univers 00:00:00 00:00:00 Only Unassigned, HOSEA 350.1.13.10 ity of [place] [facility] 4.2.7.2.686 Javier as [id number] [facility] [address] 2021-03-17 2021-03-17 Telephone EWELINA Nava 1.2.496.759 [id number] Univers 00:00:00 00:00:00 Miky JC 350.1.13.10 ity of [facility] 4.2.7.2.686 Javier as [id number] [facility] [address] 2021-03-16 2021-03-16 Emergency Palmer [facility] 1.2.840.114 [id number] Univers 20:08:00 23:24:00 Fabrice Hernandez 350.1.13.10 i ty of [place] 4.2.7.2.686 [facility] [id number] [place] [address] [place] 2021-03-14 2021-03-14 Urgent Lydia Desouza [facility] 1.2.840.114 [id number] Univers 18:59:34 20:19:13 Care Unknown, Attending [facility]1.13.10 [facility] 4.2.7.2.686 Javier as Prem?Blea [id number] [address] [facility] 2021-03-14 2021-03-14 Outpatient R UNKNOWN, [facility] [id number] Univers 19:00:00 19:00:00 [facility] 2021-02-19 2021-02-19 Emergency Eliana [facility] 1.2.469.128 [id number] Univers 10:49:00 14:48:00 Anali Hernandez 350.1.13.10 i ty of [place] [id number] [address] 2019-03-09 2019-03-09 Dick Arcos [facility] 1.2.840.114 [id number] 00:00:00 00:00:00 Yehuda Hernandez 350.1.13.10 [place] 4.2.7.2.[id number] [facility] [address] 2019-03-09 2019-03-09 Dick Arcos [facility] 1.2.840.114 [id number] Univers 00:00:00 00:00:00 Yehuda Hernandez 350.1.13.10 [facility] [place] 4.2.7.2.686 Charles Batesalejandro [id number] [place]ical n[place] [address] [facility] Results Test Description Test Time Test Comments Results Result Comments Source MAGNESIUM 2022-12-11 17:14:06 Test Item Value Reference Range Interpretation Comme nts MAGNESIUM (test code = 7074144541) 1.9 mg/dL 1.7-2.4 Lab Interpretation (test code = 05612-2) Normal [facility] (47841)2022-12-11 15:16:25 Test Item Value Reference Range Interpretation Comments NA (test code = 139 mmol/L 135-145 9784815483) K (test code = 3.5 mmol/L 3.5-5.0 2233784938) CL (test code = 107 mmol/L 98-108 8171323299) CO2 TOTAL (test code = 24 mmol/L 23-31 3114108430) AGAP (test code = 8 2-16 5689928265) BUN (test code = 9 mg/dL 7-23 9091760839) GLUCOSE (test code = 129 mg/dL 70-110 H 9057651890) CREATININE (test code = 0.68 mg/dL 0.50-1.04 1409920860) TOTAL BILI (test code = 0.5 mg/dL 0.1-1.5 2883507441) CALCIUM (test code = 8.9 mg/dL 8.6-10.6 5594620719) T PROTEIN (test code = 6.3 g/dL 6.3-8.2 1470312600) ALBUMIN (test code = 3.8 g/dL 3.5-5.0 2428593187) ALK PHOS (test code = 87 U/L 34-122 6104628309) ALTv (test code = 24 U/L 5-35 1742-6) AST(SGOT) (test code = 21 U/L 13-40 1330650707) eGFR (test code = 91.6 mL/min/1.73m2 9399158618) LYNDSAY (test code = LYNDSAY) Association of [...] tests). Lab Interpretation Abnormal (test code = 03427-4) [facility] [id number] 15:10:45 Test Item Value Reference Range Interpretation Comments TROPONIN I (test code = 0.015 ng/mL <=0.034 1047950496) LYNDSAY (test code = LYNDSAY) Reference (Normal) [...] biotin. Lab Interpretation Normal (test code = 89324-8) [facility] [id number] 15:07:48 Test Item Value Reference Range Interpretation Comments NT-proBNP (test code = 1460 pg/mL <=125 H 9186813021) LYNDSAY (test code = LYNDSAY) Biotin has been reported to cause a negative bias, interpret results relative to patient's use of biotin. Lab Interpretation (test Abnormal code = 72046-5) [facility] Center[facility]-[id number] 14:45:24 Test Item Value Reference Interpretation Comments Range D-DIMER (test code = 0.99 See_Comment H [Autom ated 3978563132) message] The system which generated this result transmitted reference range : <0.41 ?g/mL (FEU). The reference range was not used to interpret this result as normal/abnormal . LYNDSAY (test code = This test may be LYNDSAY) used in conjunction with a clinical pretest probability (PTP) assessment model to exclude venous thromboembolism (VTE) in patients suspected of deep venous thrombosis (DVT) and pulmonary embolism (PE) A D-Dimer value less than 0.50 ?g/ml (FEU) has a negative predicative value of 96 to 100% (95% CI)and 97 to 100% (95% CI) as an aid in the diagnosis of deep vein thrombosis (DVT) and pulmonary embolism when there is low or moderate pretest probability of PE or DVT. D-Dimer values are expressed in initial fibrinogen equivalent units (FEU)" The assay results should be used with other information, including the clinical context, in forming a diagnosis. Lab Interpretation Abnormal (test code = 22980-2) [facility] WITH [id number] 14:14:48 Test Item Value Reference Range Interpretation Comments WBC (test code = 7.86 See_Comment [Automated 8761-2) message] The sy stem which generated this result transmitted reference range : 4.30 - 11.10 10*3/?L. The reference range was not used to interpret this result as normal/abnormal . RBC (test code = 5.13 See_Comment [Automated 981-8) message] The sy stem which generated this result transmitted reference range : 3.93 - 5.25 10*6/?L. The reference range was not used to interpret this result as normal/abnormal . HGB (test code = 12.8 g/dL 11.6-15.0 718-7) HCT (test code = 41.0 % 35.7-45.2 4544-3) MCV (test code = 79.9 fL 80.6-95.5 L 787-2) MCH (test code = 25.0 pg 25.9-32.8 L 785-6) MCHC (test code = 31.2 g/dL 31.6-35.1 L 786-4) RDW-SD (test code = 47.8 fL 39.0-49.9 32636-6) RDW-CV (test code = 16.9 % 12.0-15.5 H 788-0) PLT (test code = 507 See_Comment H [Automated 777-3) message] The sy stem which generated this result transmitted reference range : 166 - 358 10*3/ ?L. The reference r zoe was not used to interpret this result as normal/abnormal . MPV (test code = 8.2 fL 9.5-12.9 L 23564-9) NRBC/100 WBC (test 0.0 See_Comment [Automat ed code = 4849330862) message] The system which generated this result transmitted reference range : 0.0 - 10.0 /100 WBCs. The refer ence range was not u sed to interpret th is result as normal/abnormal . NRBC x10^3 (test code See_Comment [Auto mated = 2903379223) message] The s ystem which generated this result transmitted reference range : 10*3/?L. The reference range was not used to interpret this result as normal/abnormal . GRAN MAT (NEUT) % 64.5 % (test code = 770-8) IMM GRAN % (test code 0.30 % = 3455480313) LYMPH % (test code = 25.6 % 736-9) MONO % (test code = 7.5 % 5905-5) EOS % (test code = 1.0 % 713-8) BASO % (test code = 1.1 % 706-2) GRAN MAT x10^3(ANC) 5.07 10*3/uL 1.88-7.09 (test code = 0525001984) IMM GRAN x10^3 (test 0.00-0.06 code = 1197016865) LYMPH x10^3 (test code 2.01 10*3/uL 1.32-3.29 = 731-0) MONO x10^3 (test code 0.59 10*3/uL 0.33-0.92 = 742-7) EOS x10^3 (test code = 0.08 10*3/uL 0.03-0.39 711-2) BASO x10^3 (test code 0.09 10*3/uL 0.01-0.07 H = 704-7) Lab Interpretation Abnormal (test code = 61851-7) [facility] Center[facility]PR2023-01-17 13:17:22 Test Item Value Reference Range Interpretation Comments RPR SCREEN (OrderMotion) (test code = Nonreactive Nonreactive 420) HEMOGLOBIN [id number] 10:39:49 Test Item Value Reference Range Interpretation Comments HEMOGLOBIN A1C 5.8 % See_Comment H [Automated m essage] ELECTROPHORESIS (OrderMotion) The system which (test code = 3811) generated this result transmitted ref erence range: <=5.6%. The reference range was not used to int erpret this result as normal/abnormal . "The A1c is measured using a [facility]-certified method. HbA1c value equal to or greater than 6.5% as thediagnosis cutoff for diabetes. An HbA1c value of 5.7- 6.4% indicates increased risk for diabetes (prediabetes)."Casino Worker ID - ADM VITAMIN [id number] 22:48:27 Test Item Value Reference Range Interpretation Comments VITAMIN B12 (OrderMotion) (test code = 227 pg/mL 213-816 774) Casino Worker ID - MARCOTSH/FREE T4 IF [id number] 22:08:28 Test Item Value Reference Range Interpretation Comments THYROID STIMULATING HORMONE 3.309 uIU/mL 0.350-4.940 (OrderMotion) (test code = 772) Casino Worker ID - JSHIV-1 ANTIGEN WITH HIV-1/2 [id number] 22:08:28 Test Item Value Reference Range Interpretation Comments HIV-1 ANTIGEN WITH HIV 1\\T\\2 Nonreactive Nonreactive ANTIBODY (2) (OrderMotion) (test code = 2586) Casino Worker ID - JSC-REACTIVE [id number] 21:49:44 Test Item Value Reference Range Interpretation Comments C-REACTIVE PROTEIN (BEAKER) (test 0.35 mg/dL 0.00-0.50 code = 676) Casino Worker ID - JSCOMPREHENSIVE METABOLIC [id number] 21:49:43 Test Item Value Reference Range Interpretation [...] not appl icable for dialysis patien ts Casino Worker ID - JSLIPID [id number] 21:49:43 Test Item Value Reference Range Interpretation [...] Borderline 130-159 High 160-189 Very High >=190 Casino Worker ID - JSCBC W/PLT COUNT & AUTO [id number] 21:34:03 Test Item Value Reference Range Interpretation [...] Interpretation Comments Height (test code = in 5335606548) Weight (test code = lbs 9946677639) Systolic BP (test code = mmHg 7182927611) Diastolic BP (test code mmHg = 1646271235) Heart Rate (test code = bpm 2358249146) BSA (test code = 2.00 m2 6041696504) Ao root diam (test code 3.20 cm = 5547707564) Aortic root (test code = 3.2 cm 8835781851) Ao root annulus (test 3.2 cm code = 9866956017) LVOT diameter (test code 1.99 cm = 1628076062) LVOT area (test code = 3.10 cm2 9998019186) LVIDD (test code = 5.10 cm 8239009253) Left Ventricular End 123.0 mL Diastolic Volume by Teichholz Method (test code = 3469303) IVS (test code = 1.34 cm 5360929686) Interventricular Septum 1.34 cm Diastolic Thickness by 2D (test code = 0119740) LVPWD (test code = 1.34 cm 3819334020) PW (test code = 1.34 cm 0.6-1.4 8232743999) EF(Teich) (test code = 41.80 % 3951148972) LVIDS (test code = 4.00 cm 9010007787) Left Ventricular End 71.5 mL Systolic Volume by Teichholz Method (test code = 4669504) FS (test code = 21 % 4735124129) EF - 2D (test code = 41.80 % 86987366) LA size (test code = 4.6 cm 9289504686) Pulmonic Regurgitant End 119.4 cm/s Max Velocity (test code = 4895042546) LAV(MOD-sp4) (test code 95.00 mL = 4168942238) E wave decelartion time 0.15 s (test code = 4360609301) MV stenosis pressure 1/2 45.6 ms time (test code = 6554835659) MV Peak A Evette (test code 123.8 cm/s = 9306470687) MV Peak E Evette (test code 109.7 cm/s = 9167872067) E/A ratio (test code = ratio 7222364568) MR max PG (test code = 87.20 mm[Hg] 2668544189) MR max evette (test code = 466.90 cm/s 9965482626) Mr max evette (test code = 466.9 m/s 5241404918) MV Prop V (test code = 51.00 cm/s 6999769314) MV E/e' septal (test 8.1 cm/s code = 1061650069) Tapse (test code = 2.21 cm 5009339359) LVOT stroke volume (test 49.80 cm3 code = 6615118811) LVOT peak evette (test code 89.1 cm/s = 0878123579) LVOT mn grad (test code mmHg = 0889692181) AV LVOT peak gradient mmHg (test code = 6929958372) LVOT peak VTI (test code 16.0 cm = 7814487709) LV V1 mean (test code = 64.30 cm/s 6467673396) Aortic valve mean 133.8 cm/s velocity (test code = 8098863518) Ao peak evette (test code = 175.3 cm/s 1150706135) Ao VTI (test code = 32.2 cm 7957033673) AV area by cont VTI 1.6 cm2 (test code = 8870956448) AV area peak evette (test 1.6 cm2 code = 2967842123) Ao max PG (test code = 12.30 mm[Hg] 8226823785) AV peak gradient (test mmHg code = 2728286957) AV valve area (test code 1.55 cm2 = 8023152843) AV mean gradient (test mmHg code = 5945064616) AV regurgitation 358.5 ms pressure 1/2 time (test code = 4819527915) AI dec slope (test code 364.20 cm/s2 = 5678072953) AI max evette (test code = 445.80 cm/s 7783813651) AI max PG (test code = 79.50 mm[Hg] 5497357737) Radiology Study observation (narrative) (test code = 61697-5) LYNDSAY (test code = LYNDSAY) ?Left?Ventricle: Left [...] mL of Lumason ultrasound enhancing agent used. [facility])2022-08-01 10:43:32 Test Item Value Reference Range Interpretation Comments POCT GLU (test code = 2614875018) 148 mg/dL 70-110 H Lab Interpretation (test code = Abnormal 37249-7) [facility] CenterACTIVATED PARTIAL THRMPLAS [id number] 18:39:45 Test Item Value Reference Range Interpretation Comments APTT Patient (test See_Comment [Automat ed code = 3173-2) message] The system which generated this result transmitted reference range : 23 - 38 Seconds . The reference range was not used to interpr et this result as normal/abnormal . LYNDSAY (test code = LYNDSAY) The [facility] patient population mean normal value for aPTT is 30 seconds. Lab Interpretation Normal (test code = 85781-4) [facility] CenterPROTHROMBIN TIME / [id number] 18:37:42 Test Item Value Reference Range Interpretation [...] tions. Lab Interpretation (test Normal code = 82166-8) [facility] CenterTROP[facility]IN [id number] 18:32:01 Test Item Value Reference Interpretation Comments Range TROPONIN I (test 0.019 ng/mL See_Comment [Automated code = 6984509084) message] The system which generated this result [...] biotin. Lab Interpretation Normal (test code = 73424-1) [facility]MINAL [id number] 18:29:01 Test Item Value Reference Range Interpretation Comments NT-proBNP (test code 2770 pg/mL See_Comment H [Autom ated = 8094076719) message] The system which generated this result transmitted reference range : <=125. The reference range was not used to interpret this result as normal/abnormal . LYNDSAY (test code = LYNDSAY) Biotin has been reported to cause a negative bias, interpret results relative to patient's use of biotin. Lab Interpretation Abnormal (test code = 97881-5) [facility] Center[facility] MET[facility]OLIC PANEL (69904)2022-07-31 18:21:42 Test Item Value Reference Range Interpretation Comments NA (test code = 136 mmol/L 135-145 6049175602) K (test code = 4.6 mmol/L 3.5-5.0 6223872697) CL (test code = 104 mmol/L 98-108 4804827275) CO2 TOTAL (test code = 26 mmol/L 23-31 9563369461) AGAP (test code = 2-16 4865066515) BUN (test code = 9 mg/dL 7-23 6973100993) GLUCOSE (test code = 97 mg/dL 70-110 5900095912) CREATININE (test code = 0.64 mg/dL 0.50-1.04 3021624678) TOTAL BILI (test code = 0.5 mg/dL 0.1-1.7 4744113202) CALCIUM (test code = 8.2 mg/dL 8.6-10.6 L 7367194864) T PROTEIN (test code = 6.5 g/dL 6.3-8.2 6484714137) ALBUMIN (test code = 3.9 g/dL 3.5-5.0 4595679835) ALK PHOS (test code = 93 U/L 34-122 4129971773) ALTv (test code = 18 U/L 5-35 1742-6) AST(SGOT) (test code = 19 U/L 13-40 8801704532) eGFR (test code = mL/min/1.73m2 1282836551) LYNDSAY (test code = LYNDSAY) Association of [...] tests). Lab Interpretation Abnormal (test code = 11289-3) [facility] CenterLIPASE2023-01-12 18:21:01 Test Item Value Reference Range Interpretation Comments LIPASE (test code = 5082726585) 54 U/L 0-220 Lab Interpretation (test code = Normal 88552-9) [facility] WITH [id number] 18:07:00 Test Item Value Reference Range Interpretation [...] (test code = 53.1 fL 39.0-49.9 H 62240-0) RDW-CV (test code = 17.0 % 12.0-15.5 H 788-0) PLT (test code = See_Comment H [Automated 777-3) message] The sy stem which generated this result transmitted reference range : 166 - 358 10*3/ ?L. The reference r zoe was not used to interpret this result as normal/abnormal . MPV (test code = 8.2 fL 9.5-12.9 L 18934-9) NRBC/100 WBC (test See_Comment [Automat ed code = 7650338706) message] The system which generated this result transmitted reference range : 0.0 - 10.0 /100 WBCs. The refer ence range was not u sed to interpret th is result as normal/abnormal . NRBC x10^3 (test code See_Comment [Auto mated = 0328031682) message] The s ystem which generated this result transmitted reference range : 10*3/?L. The reference range was not used to interpret this result as normal/abnormal . GRAN MAT (NEUT) % 64.0 % (test code = 770-8) IMM GRAN % (test code 0.40 % = [id number]) LYMPH % (test code = 27.3 % 736-9) MONO % (test code = 6.5 % 5905-5) EOS % (test code = 1.1 % 713-8) BASO % (test code = 0.7 % 706-2) GRAN MAT x10^3(ANC) 5.46 10*3/uL 1.88-7.09 (test code = [id number]) IMM GRAN x10^3 (test 0.03 10*3/uL 0.00-0.06 code = [id number]) LYMPH x10^3 (test code 2.32 10*3/uL 1.32-3.29 = 731-0) MONO x10^3 (test code 0.55 10*3/uL 0.33-0.92 = 742-7) EOS x10^3 (test code = 0.09 10*3/uL 0.03-0.39 711-2) BASO x10^3 (test code 0.06 10*3/uL 0.01-0.07 = 704-7) Lab Interpretation Abnormal (test code = 71623-2) [facility] METABOLIC PANEL (NA, K, CL, CO2, GLUCOSE, BUN, CREATININE, CA)2022-05-08 06:37:01 Test Item Value Reference Range Interpretation Comments NA (test code = 137 mmol/L 135-145 0539451314) K (test code = 3.8 mmol/L 3.5-5 8570830687) CL (test code = 103 mmol/L 98-108 3797894830) CO2 TOTAL (test code = 24 mmol/L 23-31 0781915249) AGAP (test code = 2-16 4326704815) BUN (test code = 13 mg/dL 7-23 8283907536) GLUCOSE (test code = 90 mg/dL 70-110 7862639292) CREATININE (test code = 0.69 mg/dL 0.5-1.04 8386246369) CALCIUM (test code = 8.5 mg/dL 8.6-10.6 L 2836974996) eGFR (test code = mL/min/1.73m2 0395711463) LYNDSAY (test code = LYNDSAY) Association of [...] tests). Lab Interpretation Abnormal (test code = 54736-8) [facility] CenterMAGN[facility]IUM20[facility]-20 06:37:01 Test Item Value Reference Range Interpretation Comments MAGNESIUM (test code = 9621042198) 2.1 mg/dL 1.7-2.4 Lab Interpretation (test code = Normal 91774-8) [facility] CenterPHOSPHORUS2022-10-20 06:37:01 Test Item Value Reference Range Interpretation Comments PHOSPHORUS (test code = 5005729097) 4.7 mg/dL 2.5-5 Lab Interpretation (test code = Normal 95876-0) [facility] CenterCB WITH [id number] 06:11:54 Test Item Value Reference Range Interpretation [...] (test code = 51.0 fL 39-49.9 H 58465-5) RDW-CV (test code = 16.5 % 12-15.5 H 788-0) PLT (test code = See_Comment H [Automated 777-3) message] The sy stem which generated this result transmitted reference range : 166 - 358 10*3/ ?L. The reference r zoe was not used to interpret this result as normal/abnormal . MPV (test code = 8.3 fL 9.5-12.9 L 99328-3) NRBC/100 WBC (test See_Comment [Automat ed code = 4244793616) message] The system which generated this result transmitted reference range : 0.0 - 10.0 /100 WBCs. The refer ence range was not u sed to interpret th is result as normal/abnormal . NRBC x10^3 (test code See_Comment [Auto mated = 0552260490) message] The s ystem which generated this result transmitted reference range : 10*3/?L. The reference range was not used to interpret this result as normal/abnormal . GRAN MAT (NEUT) % 64.5 % (test code = 770-8) IMM GRAN % (test code 0.50 % = 7755056780) LYMPH % (test code = 27.1 % 736-9) MONO % (test code = 6.6 % 5905-5) EOS % (test code = 0.6 % 713-8) BASO % (test code = 0.7 % 706-2) GRAN MAT x10^3(ANC) 5.28 10*3/uL 1.88-7.09 (test code = 3509757006) IMM GRAN x10^3 (test 0.04 10*3/uL 0-0.06 code = 4103924509) LYMPH x10^3 (test code 2.22 10*3/uL 1.32-3.29 = 731-0) MONO x10^3 (test code 0.54 10*3/uL 0.33-0.92 = 742-7) EOS x10^3 (test code = 0.05 10*3/uL 0.03-0.39 711-2) BASO x10^3 (test code 0.06 10*3/uL 0.01-0.07 = 704-7) Lab Interpretation Abnormal (test code = 14503-3) [facility] CenterPOTX GLUCOSE (AUTOMATED)2022-05-07 01:18:10 Test Item Value Reference Range Interpretation Comments POCT GLU (test code = 5745703725) 120 mg/dL 70-110 H Lab Interpretation (test code = Abnormal 57917-3) [facility] CenterType and Screen - ONCE [id number] 05:46:35 Test Item Value Reference Range Interpretation Comments ABO & RH (test code O POSITIVE Performe d at [facility] = 20) Laboratory Serv [facility] Blood [facility]3 [address] [facility] s [id number] Free: [phone] A No. [id number] IAT (test code = Negative Performed a t [facility] 1185) Laboratory Serv [facility] Blood [facility]3 [address] [facility] s [id number] Free: [phone] A No. [id number] [facility] CenterBASIC METABOLIC PANEL (NA, K, CL, CO2, GLUCOSE, BUN, CREATININE, CA)2022-05-05 08:22:57 Test Item Value Reference Range Interpretation Comments NA (test code = 136 mmol/L 135-145 2851376895) K (test code = 4.9 mmol/L 3.5-5 4102875525) CL (test code = 108 mmol/L 98-108 7471629741) CO2 TOTAL (test code = 22 mmol/L 23-31 L 4369812073) AGAP (test code = 2-16 1434734632) BUN (test code = 12 mg/dL 7-23 8190788201) GLUCOSE (test code = 155 mg/dL 70-110 H 7802191999) CREATININE (test code = 0.63 mg/dL 0.5-1.04 0640956725) CALCIUM (test code = 8.4 mg/dL 8.6-10.6 L 1134072622) eGFR (test code = mL/min/1.73m2 3017594077) LYNDSAY (test code = LYNDSAY) Association of [...] tests). Lab Interpretation Abnormal (test code = 65717-6) [facility] CenterPROTHROMBIN TIME / [id number] 08:22:37 Test Item Value Reference Range Interpretation [...] tions. Lab Interpretation (test Normal code = 56068-0) [facility] CenteraPTT2022-10-17 08:22:37 Test Item Value Reference Range Interpretation Comments APTT Patient (test code = See_Comment [ Automated message] 3173-2) The system ic h generated this result transmitted ref erence range: 26 - 36 Seconds. The re ference range was not u sed to interpret this result as normal/abnor mal. Lab Interpretation (test Normal code = 07282-5) [facility] CenterFIBRINOGEN2022-10-17 08:22:37 Test Item Value Reference Range Interpretation Comments Fibrinogen (test code = 9877905798) 294 mg/dL 167-453 Lab Interpretation (test code = Normal 11672-8) [facility] CenterCBC WITH [id number] 08:15:01 Test Item Value Reference Range Interpretation Comments WBC (test code = See_Comment [Automated 5890-2) message] The sy stem which generated this result transmitted reference range : 4.30 - 11.10 10*3/?L. The reference range was not used to interpret this result as normal/abnormal . RBC (test code = See_Comment [Automated 059-8) message] The sy stem which generated this [...] (test code = 52.9 fL 39-49.9 H 22660-8) RDW-CV (test code = 16.8 % 12-15.5 H 788-0) PLT (test code = See_Comment H [Automated 777-3) message] The sy stem which generated this result transmitted reference range : 166 - 358 10*3/ ?L. The reference r zoe was not used to interpret this result as normal/abnormal . MPV (test code = 8.3 fL 9.5-12.9 L 68814-8) NRBC/100 WBC (test See_Comment [Automat ed code = 4449881945) message] The system which generated this result transmitted reference range : 0.0 - 10.0 /100 WBCs. The refer ence range was not u sed to interpret th is result as normal/abnormal . NRBC x10^3 (test code See_Comment [Auto mated = 4265509319) message] The s ystem which generated this result transmitted reference range : 10*3/?L. The reference range was not used to interpret this result as normal/abnormal . GRAN MAT (NEUT) % 86.4 % (test code = 770-8) IMM GRAN % (test code 0.40 % = 2306538412) LYMPH % (test code = 11.7 % 736-9) MONO % (test code = 1.1 % 5905-5) EOS % (test code = 0.0 % 713-8) BASO % (test code = 0.4 % 706-2) GRAN MAT x10^3(ANC) 6.36 10*3/uL 1.88-7.09 (test code = 0934156331) IMM GRAN x10^3 (test 0.03 10*3/uL 0-0.06 code = 3794715568) LYMPH x10^3 (test code 0.86 10*3/uL 1.32-3.29 L = 731-0) MONO x10^3 (test code 0.08 10*3/uL 0.33-0.92 L = 742-7) EOS x10^3 (test code = 0.03-0.39 L 711-2) BASO x10^3 (test code 0.03 10*3/uL 0.01-0.07 = 704-7) Lab Interpretation Abnormal (test code = 73086-4) [facility] CenterVITAMIN D, [id number] 20:14:03 Test Item Value Reference Range Interpretation Comments VIT D 25OH (test code = 22 ng/mL 25-80 L 97869-1) LYNDSAY (test code = LYNDSAY) Deficiency: <20 ng/mLInsufficiency: 20-24 ng/mLOptimal: 25-80 ng/mL Lab Interpretation (test Abnormal code = 86528-5) [facility] (NA, K, CL, CO2, GLUCOSE, BUN, CREATININE, CA)2022-04-15 11:27:57 Test Item Value Reference Range Interpretation Comments NA (test code = 138 mmol/L 135-145 2701750441) K (test code = 3.9 mmol/L 3.5-5 8143868219) CL (test code = 106 mmol/L 98-108 2293315008) CO2 TOTAL (test code = 23 mmol/L 23-31 1763963262) AGAP (test code = 2-16 6556973130) BUN (test code = 10 mg/dL 7-23 0334909613) GLUCOSE (test code = 91 mg/dL 70-110 2858376973) CREATININE (test code = 0.65 mg/dL 0.5-1.04 8387578420) CALCIUM (test code = 8.1 mg/dL 8.6-10.6 L 9224895905) eGFR (test code = mL/min/1.73m2 7087503798) LYNDSAY (test code = LYNDSAY) Association of [...] tests). Lab Interpretation Abnormal (test code = 88230-0) [facility] CenterSTROKE Protocol - Transthoracic echo (TTE) 2022-04-14 22:07:33 Test Item Value Reference Range Interpretation Comments Height (test code = in 7176844364) Weight (test code = lbs 9355757507) Systolic BP (test code = mmHg 0769124823) Diastolic BP (test code mmHg = 6156029694) Heart Rate (test code = bpm 2842554433) BSA (test code = 1.94 m2 0226582343) TASV (test code = 15.5 cm/s 7037347191) LVIDD (test code = 6.00 cm 6625541178) Left Ventricular End 183.0 mL Diastolic Volume by Teichholz Method (test code = 0588875) IVS (test code = 1.09 cm 2090832836) Interventricular Septum 1.09 cm Diastolic Thickness by 2D (test code = 7400888) LVPWD (test code = 0.94 cm 1259461782) PW (test code = 0.94 cm 0.6-1.7 2044358910) EF(Teich) (test code = 40.30 % 1804369987) LVIDS (test code = 4.80 cm 7635931466) Left Ventricular End 109.2 mL Systolic Volume by Teichholz Method (test code = 9150420) FS (test code = 20 % 1617055876) EF - 2D (test code = 40.30 % 95881917) LVOT diameter (test code 2.05 cm = 9970990063) LVOT area (test code = 3.30 cm2 9313910174) Ao root diam (test code 3.10 cm = 5439865178) Aortic root (test code = 3.1 cm 7109729626) Ao root annulus (test 3.1 cm code = 8086438611) LA size (test code = 4.2 cm 7704850668) LAV(MOD-sp4) (test code 64.90 mL = 5216034769) MV Peak A Evette (test code 115.7 cm/s = 4679558317) E wave decelartion time 0.15 s (test code = 6774100338) MV Peak E Evette (test code 106.2 cm/s = 8964951243) E/A ratio (test code = ratio 4607752942) LVOT stroke volume (test 48.30 cm3 code = 2242089741) LVOT peak evette (test code 78.4 cm/s = 2194423617) LVOT mn grad (test code mmHg = 2683299379) AV LVOT peak gradient mmHg (test code = 2977416322) LVOT peak VTI (test code 14.7 cm = 3678898386) LV V1 mean (test code = 51.40 cm/s 5154184441) Ao peak evette (test code = 154.7 cm/s 1768315720) AV area peak evette (test 1.7 cm2 code = 2341352833) Ao max PG (test code = 9.60 mm[Hg] 9949654745) AV peak gradient (test mmHg code = 7241409154) AV regurgitation 257.3 ms pressure 1/2 time (test code = 9939952110) AI dec slope (test code 498.10 cm/s2 = 7198781824) AI max evette (test code = 437.60 cm/s 4682597163) AI max PG (test code = 77.80 mm[Hg] 2103770385) Tapse (test code = 2.19 cm 3240697237) LA Volume Index (BP) 32.0 mL/m2 (test code = 7027439544) LA volume (BP) (test 62.1 mL code = 8066526757) LAV(MOD-sp2) (test code 52.70 mL = 7747463642) A4C EF (test code = 44.80 % 5572806778) EF(sp4-el) (test code = 45.20 % 4878088820) SV(MOD-sp4) (test code = 71.20 mL 1247087811) SV(sp4-el) (test code = 73.90 mL 1290064301) LV Diastolic Volume (BP) 146.3 mL (test code = 5082953680) A2C EF (test code = 52.00 % 4606374519) EF(MOD-bp) (test code = 46.70 % 7668352281) EF(sp2-el) (test code = 52.40 % 5208466738) LV Systolic Volume (BP) 77.9 mL (test code = 9994501374) SV(MOD-bp) (test code = 68.40 mL 6640527363) SV(MOD-sp2) (test code = 69.20 mL 2194746179) EF (test code = 8912923270) Left Ventricular Stroke 68.4 mL Volume by 2-D Biplane-MOD (test code = 2982209) Radiology Study observation (narrative) (test code = 20158-8) LYNDSAY (test code = LYNDSAY) ?Left?Ventricle: Left [...] agent used and saline contrast was performed. [facility] CenterKEPPRA (LEVETIRACETAM)2022-04-14 16:48:36 Test Item Value Reference Range Interpretation Comments KEPPRA (test code = 12-46 L 9528658429) LYNDSAY (test code = LYNDSAY) Therapeutic range: 12-46 ?g/mL ? ?Toxic: Not well established.Test developed and characteristics determined by [facility] Laboratory Services. Lab Interpretation Abnormal (test code = 41708-3) [facility] Metabolic Panel (Na, K, Cl, CO2, Glucose, BUN, Creatinine, Ca)2022-04-14 10:50:11 Test Item Value Reference Range Interpretation Comments NA (test code = 136 mmol/L 135-145 0685459119) K (test code = 3.8 mmol/L 3.5-5 0672635520) CL (test code = 105 mmol/L 98-108 5136077865) CO2 TOTAL (test code = 25 mmol/L 23-31 0872032295) AGAP (test code = 2-16 3620663947) BUN (test code = 9 mg/dL 7-23 0020836772) GLUCOSE (test code = 101 mg/dL 70-110 9551428201) CREATININE (test code = 0.66 mg/dL 0.5-1.04 4584053836) CALCIUM (test code = 8.1 mg/dL 8.6-10.6 L 8724712105) eGFR (test code = mL/min/1.73m2 9594458731) LYNDSAY (test code = LYNDSAY) Association of [...] tests). Lab Interpretation Abnormal (test code = 99564-5) [facility] CenterMagensium, [id number] 10:50:11 Test Item Value Reference Range Interpretation Comments MAGNESIUM (test code = 7856822522) 1.9 mg/dL 1.7-2.4 Lab Interpretation (test code = Normal 05719-4) [facility] CenterThyroid Stimulating [id number] 22:21:44 Test Item Value Reference Range Interpretation Comments TSH (test code = See_Comment Biotin has been 5970259659) reported to cau se a negative bias, interpret resul ts relative to autumn garcia's use of biotin. [Automated mess age] The system [employer] generated this result transmitted ref erence range: 0.45 - 4 .70 mIU/L. The refe rence range was not u sed to interpret this result as normal/abnor mal. Lab Interpretation (test Normal code = 31937-0) [facility] CenterGLYCOSYLATED HEMOGLOBIN (A1C)2022-04-13 21:53:43 Test Item Value Reference Range Interpretation Comments HGB A1C (test code = 5.8 % 4-5.7 H 4548-4) LYNDSAY (test code = LYNDSAY) Reference RangesNormal: <5.7%Prediabetes: 5.7 - 6.4%Diabetes: > 6.5% Lab Interpretation (test Abnormal code = 19089-8) [facility] CenterFASTING LIPID PANEL (50613)(TOTAL CHOLESTEROL, TRIGLYCERIDES, HDL)2022-04-13 21:34:53 Test Item Value Reference Range Interpretation Comments CHOL (test code = 201 mg/dL 120-200 H 4383907212) HDL (test code = 56 mg/dL See_Comment [Automated message] 1630118668) The system [employer] generated this result transmit sherice reference range : >=50. The refer ence range was not u sed to interpret th is result as normal/abnormal . HDLC RATIO (test code = See_Comment [Au tomated message] 2520418796) The system [employer] generated this result transmit sherice reference range : <=4.5. The refe rence range was not u sed to interpret th is result as normal/abnormal . TRIG (test code = 355 mg/dL 30-170 H 5265802175) LDL CHOL (test code = 74 mg/dL See_Comment [Auto mated message] 21705-8) The system [employer] generated this result transmit sherice reference range : <=160. The refe rence range was not u sed to interpret th is result as normal/abnormal . VLDL (test code = 71 mg/dL 5-60 H 2760723430) Lab Interpretation (test Abnormal code = 93869-5) [facility] CenterTroponin I - Code [id number] 18:46:27 Test Item Value Reference Interpretation Comments Range TROPONIN I (test 0.013 ng/mL See_Comment [Automated code = 9271299775) message] The system which generated this result [...] biotin. Lab Interpretation Normal (test code = 46309-0) [facility] Metabolic Panel (NA, K, CL, CO2, Glucose, BUN, Creatinine, CA) - Code [id number] 18:35:07 Test Item Value Reference Range Interpretation Comments NA (test code = 136 mmol/L 135-145 0883870559) K (test code = 4.3 mmol/L 3.5-5 6808762340) CL (test code = 105 mmol/L 98-108 3475452600) CO2 TOTAL (test code = 27 mmol/L 23-31 4286527968) AGAP (test code = 2-16 1751716364) BUN (test code = 8 mg/dL 7-23 1067785668) GLUCOSE (test code = 130 mg/dL 70-110 H 7682163254) CREATININE (test code = 0.75 mg/dL 0.5-1.04 1058317301) CALCIUM (test code = 8.5 mg/dL 8.6-10.6 L 3665613038) eGFR (test code = mL/min/1.73m2 7076075859) LYNDSAY (test code = LYNDSAY) Association of [...] tests). Lab Interpretation Abnormal (test code = 32049-0) [facility] CenteraPTT - Code [id number] 18:32:46 Test Item Value Reference Range Interpretation Comments APTT Patient (test See_Comment [Automat ed code = 3173-2) message] The system which generated this result transmitted reference range : 23 - 38 Seconds . The reference range was not used to interpr et this result as normal/abnormal . LYNDSAY (test code = LYNDSAY) The [facility] patient population mean normal value for aPTT is 30 seconds. Lab Interpretation Normal (test code = 83035-6) [facility] CenterProthrombin Time / INR - Code [id number] 18:30:45 Test Item Value Reference Range Interpretation [...] tions. Lab Interpretation (test Normal code = 38206-2) [facility] without Diff - Code [id number] 18:23:07 Test Item Value Reference Range Interpretation Comments WBC (test code = 6690-2) See_Comment [A utomated message] The system [employer] generated this result transmit sherice reference range : 4.30 - 11.10 10*3/?L. The reference range was not used to interpret this result as normal/abnormal . RBC (test code = 789-8) See_Comment [Au tomated message] The system [employer] generated this result transmit sherice reference range [...] See_Comment H [Au tomated message] The system [employer] generated this result transmit sherice reference range : 166 - 358 10*3/?L. The reference range was not used to interpret this result as normal/abnormal . MPV (test code = 8.1 fL 9.5-12.9 L 37971-1) RDW-CV (test code = 16.1 % 12-15.5 H 788-0) RDW-SD (test code = 49.2 fL 39-49.9 09293-9) NRBC x10^3 (test code = See_Comment [Au tomated message] 1165840920) The system [employer] generated this result transmit sherice reference range : 10*3/?L. The reference range was not used to interpret this result as normal/abnormal . NRBC/100 WBC (test code See_Comment [Au tomated message] = 4040387478) The system [facility] generated this result transmit sherice reference range : 0.0 - 10.0 /100 WBC s. The reference r zoe was not used to interpret this result as normal/abnormal . IPF % (test code = 8676403898) Lab Interpretation (test Abnormal code = 30132-8) [facility] CenterTROPONIN [id number] 21:06:40 Test Item Value Reference Interpretation Comments Range TROPONIN I (test 0.005 ng/mL See_Comment [Automated code = 5468714378) message] The system which generated this result [...] biotin. Lab Interpretation Normal (test code = 24685-2) [facility] CenterCOM. METABOLIC PANEL (62389)2021-11-23 20:55:42 Test Item Value Reference Range Interpretation Comments NA (test code = 137 mmol/L 135-145 5563326527) K (test code = 4.3 mmol/L 3.5-5.0 9782686434) CL (test code = 104 mmol/L 98-108 3378678681) CO2 TOTAL (test code = 22 mmol/L 23-31 L 2153989571) AGAP (test code = 2-16 3052616234) BUN (test code = 15 mg/dL 7-23 1585487724) GLUCOSE (test code = 114 mg/dL 70-110 H 7362820214) CREATININE (test code = 0.68 mg/dL 0.50-1.04 4133928026) TOTAL BILI (test code = 0.5 mg/dL 0.1-1.5 2475459461) CALCIUM (test code = 9.1 mg/dL 8.6-10.6 5310635402) T PROTEIN (test code = 7.3 g/dL 6.3-8.2 7124142909) ALBUMIN (test code = 4.4 g/dL 3.5-5.0 8700402775) ALK PHOS (test code = 243 U/L 34-122 H 8901294078) ALTv (test code = 24 U/L 5-35 1742-6) AST(SGOT) (test code = 30 U/L 13-40 3399400753) eGFR (test code = mL/min/1.73m2 5229904000) LYNDSAY (test code = LYNDSAY) Association of [...] tests). Lab Interpretation Abnormal (test code = 05578-5) [facility] CenterLIPASE2022-05-07 20:55:22 Test Item Value Reference Range Interpretation Comments LIPASE (test code = 1185646419) 96 U/L 0-220 Lab Interpretation (test code = Normal 82018-8) [facility] CenterPOCT [id number] 20:46:00 Test Item Value Reference Range Interpretation Comments POCT PREG (test code = 1605) negative On board controls acceptable with present C Line (test code = 3574) POCT PREG LOT # (test code = 3575) [id number] POCT PREG TEST DATE (test 04/18/2023 code = 3576) Lab Interpretation (test code = Normal 09964-7) [facility] WITH [id number] 20:40:38 Test Item Value Reference Range Interpretation Comments WBC (test code = See_Comment [Automated 1890-2) message] The sy stem which generated this [...] (test code = 53.7 fL 39.0-49.9 H 64913-7) RDW-CV (test code = 17.2 % 12.0-15.5 H 788-0) PLT (test code = See_Comment H [Automated 777-3) message] The sy stem which generated this result transmitted reference range : 166 - 358 10*3/ ?L. The reference r zoe was not used to interpret this result as normal/abnormal . MPV (test code = 8.5 fL 9.5-12.9 L 63189-6) NRBC/100 WBC (test See_Comment [Automat ed code = 4399108367) message] The system which generated this result transmitted reference range : 0.0 - 10.0 /100 WBCs. The refer ence range was not u sed to interpret th is result as normal/abnormal . NRBC x10^3 (test code <0.01 See_Comment [Auto mated = 2591079563) message] The s ystem which generated this result transmitted reference range : 10*3/?L. The reference range was not used to interpret this result as normal/abnormal . GRAN MAT (NEUT) % 53.7 % (test code = 770-8) IMM GRAN % (test code 0.90 % = 5464755124) LYMPH % (test code = 32.6 % 736-9) MONO % (test code = 10.1 % 5905-5) EOS % (test code = 1.5 % 713-8) BASO % (test code = 1.2 % 706-2) GRAN MAT x10^3(ANC) 4.98 10*3/uL 1.88-7.09 (test code = 2972154121) IMM GRAN x10^3 (test 0.08 10*3/uL 0.00-0.06 H code = 8800636966) LYMPH x10^3 (test code 3.02 10*3/uL 1.32-3.29 = 731-0) MONO x10^3 (test code 0.94 10*3/uL 0.33-0.92 H = 742-7) EOS x10^3 (test code = 0.14 10*3/uL 0.03-0.39 711-2) BASO x10^3 (test code 0.11 10*3/uL 0.01-0.07 H = 704-7) Lab Interpretation Abnormal (test code = 59573-5) [facility] CenterPOCT GLUCOSE (AUTOMATED)2021-11-23 20:17:33 Test Item Value Reference Range Interpretation Comments POCT GLU (test code = 111 mg/dL 70-110 H Notifi ed Provider 1616971988) Lab Interpretation (test Abnormal code = 94739-6) [facility] CenterPA TEST, THINPREP, [id number] 00:00:00 Test Item Value Reference Range Interpretation Comments SOURCE: (test code = Endocervical 8001) SLIDES: (test code = 1 8011) LMP: (test code = 8021) 06/03/2021 SPECIMEN ADEQUACY: (test (NOTE) code = 37112) INTERPRETATION: (test ASCUS/EPITH. code = 30765) ABNORMALITY; SEE BELOW ELECTRICAL SYSTEMS DESIGN ENGINEER: (test Anusha code = 8101) CHANA Sepulveda(ASCP)[facility] PATHOLOGIST Nahid Russell, INTERPRETATION BY: (test M.D. code = 8122) LOCATION: (test code = (NOTE) 63736) CPT: (test code = 8140) (NOTE) PAP TEST, THINPREP, [id number] 00:00:00 Test Item Value Reference Range Interpretation Comments SOURCE: (test code = Endocervical 8001) SLIDES: (test code = 1 8011) LMP: (test code = 8021) 06/03/2021 SPECIMEN ADEQUACY: (test (NOTE) code = 53643) INTERPRETATION: (test ASCUS/EPITH. code = 78979) ABNORMALITY; SEE BELOW ELECTRICAL SYSTEMS DESIGN ENGINEER: (test Anusha code = 8101) CHANA Sepulveda(ASCP)[facility] PATHOLOGIST Nahid Russell, INTERPRETATION BY: (test M.D. code = 8122) LOCATION: (test code = (NOTE) 67392) CPT: (test code = 8140) (NOTE) PAP TEST, THINPREP, [id number] 00:00:00 Test Item Value Reference Range Interpretation Comments SOURCE: (test code = Endocervical 8001) SLIDES: (test code = 1 8011) LMP: (test code = 8021) 06/03/2021 SPECIMEN ADEQUACY: (test (NOTE) code = 13685) INTERPRETATION: (test ASCUS/EPITH. code = 84265) ABNORMALITY; SEE BELOW ELECTRICAL SYSTEMS DESIGN ENGINEER: (test Anusha code = 8101) CHANA Sepulveda(ASCP)[facility] PATHOLOGIST Nahid Russell, INTERPRETATION BY: (test M.D. code = 8122) LOCATION: (test code = (NOTE) 48457) CPT: (test code = 8140) (NOTE) PAP TEST, THINPREP, [id number] 00:00:00 Test Item Value Reference Range Interpretation Comments SOURCE: (test code = Endocervical 8001) SLIDES: (test code = 1 8011) LMP: (test code = 8021) 06/03/2021 SPECIMEN ADEQUACY: (test (NOTE) code = 24055) INTERPRETATION: (test ASCUS/EPITH. code = 23878) ABNORMALITY; SEE BELOW ELECTRICAL SYSTEMS DESIGN ENGINEER: (test Anusha code = 8101) CHANA Sepulveda(ASCP)[facility] PATHOLOGIST Nahid Russell, INTERPRETATION BY: (test M.D. code = 8122) LOCATION: (test code = (NOTE) 73558) CPT: (test code = 8140) (NOTE) HPV HIGH RISK WITH GENOTYPE, [id number] 00:00:00 Test Item Value Reference Range Interpretation Comments HPV HIGH RISK INTERP (test code = POSITIVE 08682) HPV 16 (test code = 08697) POSITIVE HPV 18 (test code = 27813) NEGATIVE HPV, HR, OTHER GENOTYPES (test code POSITIVE = 70014) HPV HIGH RISK WITH GENOTYPE, [id number] 00:00:00 Test Item Value Reference Range Interpretation Comments HPV HIGH RISK INTERP (test code = POSITIVE 60867) HPV 16 (test code = 27455) POSITIVE HPV 18 (test code = 17007) NEGATIVE HPV, HR, OTHER GENOTYPES (test code POSITIVE = 68117) HPV HIGH RISK WITH GENOTYPE, [id number] 00:00:00 Test Item Value Reference Range Interpretation Comments HPV HIGH RISK INTERP (test code = POSITIVE 10715) HPV 16 (test code = 89869) POSITIVE HPV 18 (test code = 18010) NEGATIVE HPV, HR, OTHER GENOTYPES (test code POSITIVE = 87293) HPV HIGH RISK WITH GENOTYPE, [id number] 00:00:00 Test Item Value Reference Range Interpretation Comments HPV HIGH RISK INTERP (test code = POSITIVE 96160) HPV 16 (test code = 19338) POSITIVE HPV 18 (test code = 97490) NEGATIVE HPV, HR, OTHER GENOTYPES (test code POSITIVE = 16304) [id number] 03:22:48 Test Item Value Reference Range Interpretation Comments APPEARANCE (test code = Hazy Clear A 1980851939) COLOR (test code = Yellow Yellow 3548267097) PH (test code = 4.8-8.0 8892623538) SP GRAVITY (test code = 1.003-1.030 2767561867) GLU U QUAL (test code = Normal Normal 7888423130) BLOOD (test code = Negative Negative Interfere nce from 5347688772) ascorbic acid m ay cause false neg ative results. KETONES (test code = 5 mg/dL Negative A 6619230021) PROTEIN (test code = Negative Negative 2887-8) UROBILIN (test code = 4.0 mg/dL Normal A 4052333743) BILIRUBIN (test code = Negative Negative 5231405532) NITRITE (test code = Negative Negative 5808445871) LEUK GRUPO (test code = Negative Negative 1336910237) RBC/HPF (test code = See_Comment [Autom ated message] 6673148417) The system [employer] generated this result transmitted ref erence range: 0 - 3 HP F. The reference range was not used to int erpret this result as normal/abnormal . WBC/HPF (test code = <1 See_Comment [Autom ated message] 3095772460) The system [employer] generated this result transmitted ref erence range: 0 - 5 HP F. The reference range was not used to int erpret this result as normal/abnormal . BACTERIA (test code = Few Negative A 2385219808) SQ EPITH (test code = HPF 7812036703) Lab Interpretation Abnormal (test code = 57922-4) [facility] Test Item Value Reference Range Interpretation Comments APPEARANCE (test code = Hazy Clear A 5332986155) COLOR (test code = Yellow Yellow 0828951567) PH (test code = 4.8-8.0 5927298956) SP GRAVITY (test code = 1.003-1.030 9652443044) GLU U QUAL (test code = Normal Normal 9223144340) BLOOD (test code = Negative Negative 6358064403) KETONES (test code = 5 mg/dL Negative A 2549721956) PROTEIN (test code = Negative Negative 2887-8) UROBILIN (test code = 4.0 mg/dL Normal A 1029985788) BILIRUBIN (test code = Negative Negative 1973199408) NITRITE (test code = Negative Negative 2745783147) LEUK GRUPO (test code = Negative Negative 4640018523) RBC/HPF (test code = See_Comment [Autom ated message] 2548598575) The system [employer] generated this result transmit sherice reference range : 0 - 3 HPF. The refe rence range was not u sed to interpret th is result as normal/abnormal . WBC/HPF (test code = <1 See_Comment [Autom ated message] 5950071436) The system [employer] generated this result transmit sherice reference range : 0 - 5 HPF. The refe rence range was not u sed to interpret th is result as normal/abnormal . BACTERIA (test code = Few Negative A 0512278251) SQ EPITH (test code = HPF 6465148440) Lab Interpretation (test Abnormal code = 38771-8) [facility] [id number] 02:45:00 Test Item Value Reference Interpretation Comments Range TROPONIN I (test 0.002 ng/mL See_Comment [Automated code = 2818070856) message] The system which generated this result [...] biotin. Lab Interpretation Normal (test code = 87285-9) [facility] [id number] 02:45:00 Test Item Value Reference Range Interpretation Comments TROPONIN I (test code = 0.002 ng/mL See_Comment [Au tomated 2965877745) message] The sy stem which generated this result transmitted reference range : <=0.034. The reference range was not used to interpret this result as normal/abnormal . LYNDSAY (test code = LYNDSAY) Lab Interpretation Normal (test code = 79290-1) [facility] [id number] 02:41:57 Test Item Value Reference Range Interpretation Comments NT-proBNP (test code 169 pg/mL See_Comment H [Autom ated = 0667866553) message] The system which generated this result transmitted reference range : <=125. The reference range was not used to interpret this result as normal/abnormal . LYNDSAY (test code = LYNDSAY) Biotin has been reported to cause a negative bias, interpret results relative to patient's use of biotin. Lab Interpretation Abnormal (test code = 15320-0) [facility] [id number] 02:41:57 Test Item Value Reference Range Interpretation Comments NT-proBNP (test code = 169 pg/mL See_Comment H [Aut omated message] 4199718272) The system [employer] generated this result transmit sherice reference range : <=125. The refe rence range was not u sed to interpret th is result as normal/abnormal . LYNDSAY (test code = LYNDSAY) Lab Interpretation (test Abnormal code = 77859-4) [facility]. METABOLIC PANEL (64949)2021-03-17 02:09:13 Test Item Value Reference Range Interpretation Comments NA (test code = 137 mmol/L 135-145 7771756750) K (test code = 4.2 mmol/L 3.5-5.0 8626689607) CL (test code = 102 mmol/L 98-108 8766220355) CO2 TOTAL (test code = 25 mmol/L 23-31 1505754686) AGAP (test code = 2-16 7249942932) BUN (test code = 18 mg/dL 7-23 2881128701) GLUCOSE (test code = 144 mg/dL 70-110 H 5193587461) CREATININE (test code = 0.77 mg/dL 0.50-1.04 1588969739) TOTAL BILI (test code = 0.4 mg/dL 0.1-1.5 0910398188) CALCIUM (test code = 8.9 mg/dL 8.6-10.6 3682338478) T PROTEIN (test code = 6.8 g/dL 6.3-8.2 7879168461) ALBUMIN (test code = 3.9 g/dL 3.5-5.0 3469164198) ALK PHOS (test code = 84 U/L 34-122 3658972877) ALTv (test code = 13 U/L 5-35 1742-6) AST(SGOT) (test code = 17 U/L 13-40 3413900082) eGFR (test code = mL/min/1.73m2 2855389449) LYNDSAY (test code = LYNDSAY) Association of [...] tests). Lab Interpretation Abnormal (test code = 44729-7) [facility]. METABOLIC PANEL (32010)2021-03-17 02:09:13 Test Item Value Reference Range Interpretation Comments NA (test code = 3629603629) 137 mmol/L 135-145 K (test code = 9006240002) 4.2 mmol/L 3.5-5.0 CL (test code = 5521180866) 102 mmol/L 98-108 CO2 TOTAL (test code = 1997167613) 25 mmol/L 23-31 AGAP (test code = 9235007731) 2-16 BUN (test code = 1970314841) 18 mg/dL 7-23 GLUCOSE (test code = 8634026163) 144 mg/dL 70-110 H CREATININE (test code = 0.77 mg/dL 0.50-1.04 3677871245) TOTAL BILI (test code = 0.4 mg/dL 0.1-1.1 3920967488) CALCIUM (test code = 3527059729) 8.9 mg/dL 8.6-10.6 T PROTEIN (test code = 6674586599) 6.8 g/dL 6.3-8.2 ALBUMIN (test code = 1826995370) 3.9 g/dL 3.5-5.0 ALK PHOS (test code = 1791134614) 84 U/L 34-122 ALTv (test code = 1742-6) 13 U/L 5-35 AST(SGOT) (test code = 4647254274) 17 U/L 13-40 eGFR (test code = 3502082572) mL/min/1.73m2 LYNDSAY (test code = LYNDSAY) Lab Interpretation (test code = Abnormal 14197-7) [facility] WITH [id number] 01:56:33 Test Item Value Reference Range Interpretation Comments WBC (test code = See_Comment H [Automated 3590-2) message] The sy stem which generated this [...] (test code = 55.5 fL 39.0-49.9 H 04216-0) RDW-CV (test code = 18.9 % 12.0-15.5 H 788-0) PLT (test code = See_Comment H [Automated 777-3) message] The sy stem which generated this result transmitted reference range : 166 - 358 10*3/ ?L. The reference r zoe was not used to interpret this result as normal/abnormal . MPV (test code = 8.2 fL 9.5-12.9 L 98988-8) NRBC/100 WBC (test See_Comment [Automat ed code = 9113400333) message] The system which generated this result transmitted reference range : 0.0 - 10.0 /100 WBCs. The refer ence range was not u sed to interpret th is result as normal/abnormal . NRBC x10^3 (test code <0.01 See_Comment [Auto mated = 0617685224) message] The s ystem which generated this result transmitted reference range : 10*3/?L. The reference range was not used to interpret this result as normal/abnormal . GRAN MAT (NEUT) % 61.7 % (test code = 770-8) IMM GRAN % (test code 0.80 % = 0477424914) LYMPH % (test code = 28.5 % 736-9) MONO % (test code = 6.3 % 5905-5) EOS % (test code = 1.8 % 713-8) BASO % (test code = 0.9 % 706-2) GRAN MAT x10^3(ANC) 7.31 10*3/uL 1.88-7.09 H (test code = 2602030198) IMM GRAN x10^3 (test 0.09 10*3/uL 0.00-0.06 H code = 1845587346) LYMPH x10^3 (test code 3.38 10*3/uL 1.32-3.29 H = 731-0) MONO x10^3 (test code 0.75 10*3/uL 0.33-0.92 = 742-7) EOS x10^3 (test code = 0.21 10*3/uL 0.03-0.39 711-2) BASO x10^3 (test code 0.11 10*3/uL 0.01-0.07 H = 704-7) Lab Interpretation Abnormal (test code = 71269-7) [facility] WITH [id number] 01:56:33 Test Item Value Reference Range Interpretation [...] (test code = 55.5 fL 39.0-49.9 H 74213-0) RDW-CV (test code = 18.9 % 12.0-15.5 H 788-0) PLT (test code = See_Comment H [Automated 777-3) message] The sy stem which generated this result transmitted reference range : 166 - 358 10*3/ ?L. The reference r zoe was not used to interpret this result as normal/abnormal . MPV (test code = 8.2 fL 9.5-12.9 L 61416-2) NRBC/100 WBC (test See_Comment [Automat ed code = 4622300977) message] The system which generated this result transmitted reference range : 0.0 - 10.0 /100 WBCs. The refer ence range was not u sed to interpret th is result as normal/abnormal . NRBC x10^3 (test code <0.01 See_Comment [Auto mated = 5873808863) message] The s ystem which generated this result transmitted reference range : 10*3/?L. The reference range was not used to interpret this result as normal/abnormal . GRAN MAT (NEUT) % 61.7 % (test code = 770-8) IMM GRAN % (test code 0.80 % = 4769141590) LYMPH % (test code = 28.5 % 736-9) MONO % (test code = 6.3 % 5905-5) EOS % (test code = 1.8 % 713-8) BASO % (test code = 0.9 % 706-2) GRAN MAT x10^3(ANC) 7.31 10*3/uL 1.88-7.09 H (test code = 7456935690) IMM GRAN x10^3 (test 0.09 10*3/uL 0.00-0.06 H code = 2607507551) LYMPH x10^3 (test code 3.38 10*3/uL 1.32-3.29 H = 731-0) MONO x10^3 (test code 0.75 10*3/uL 0.33-0.92 = 742-7) EOS x10^3 (test code = 0.21 10*3/uL 0.03-0.39 711-2) BASO x10^3 (test code 0.11 10*3/uL 0.01-0.07 H = 704-7) Lab Interpretation Abnormal (test code = 64474-8) [facility] NOW RAPID TESTING)2021-03-17 01:38:12 Test Item Value Reference Range Interpretation Comments SARS-CoV-2 Rapid ID NOW Not Detected Not Detected (test code = 58714-6) LYNDSAY (test code = LYNDSAY) ID NOW COVID-19 Assay is an isothermal nucleic acid amplification test intended for the qualitative detection of nucleic acid from SARS-CoV-2 viral RNA in nasopharyngeal (SOFTWARE TECHNICIAN) specimens. It is used under Emergency Use [...] indicated. Lab Interpretation Normal (test code = 37526-1) [facility] NOW [facility]APID TESTING)2021-03-17 01:38:12 Test Item Value Reference Range Interpretation Comments SARS-CoV-2 Rapid ID NOW (test Not Detected Not Detected code = 64882-6) LYNDSAY (test code = LYNDSAY) Lab Interpretation (test code = Normal 76466-4) [facility]-19 (ID NOW RAPID TESTING)2021-02-19 17:42:45 Test Item Value Reference Range Interpretation Comments SARS-CoV-2 Rapid ID NOW Not Detected Not Detected (test code = 40478-3) LYNDSAY (test code = LYNDSAY) ID NOW COVID-19 Assay is an isothermal nucleic acid amplification test intended for the qualitative detection of nucleic acid from SARS-CoV-2 viral RNA in nasopharyngeal (SOFTWARE TECHNICIAN) specimens. It is used under Emergency Use [...] indicated. Lab Interpretation Normal (test code = 64829-6) [facility] CenterCT ABDOMEN PELVIS W [id number] 17:24:55Thickening of the gastric antrum and duodenal [...] nodularity of the left adrenal gland.RL: 8722 [facility] CenterUrinalysis2021-08-03 17:03:40 Test Item Value Reference Range Interpretation Comments APPEARANCE (test code = Hazy Clear A 8173518369) COLOR (test code = Mabel Yellow A 1644266204) PH (test code = 4.8-8.0 5921455985) SP GRAVITY (test code = 1.003-1.030 H 1930819412) GLU U QUAL (test code = Normal Normal 1168909107) BLOOD (test code = Negative Negative 0200810319) KETONES (test code = 5 mg/dL Negative A 5229266686) PROTEIN (test code = 30 mg/dL Negative A 2887-8) UROBILIN (test code = 4.0 mg/dL Normal A 2055150006) BILIRUBIN (test code = 4 mg/dL Negative A 5741816670) NITRITE (test code = Negative Negative 4943489265) LEUK GRUPO (test code = Negative Negative 2538802028) RBC/HPF (test code = See_Comment H [Autom ated message] 3860157912) The system whic h generated this result transmit sherice reference range : 0 - 3 HPF. The refe rence range was not u sed to interpret th is result as normal/abnormal . WBC/HPF (test code = See_Comment H [Autom ated message] 7608571964) The system [employer] generated this result transmit sherice reference range : 0 - 5 HPF. The refe rence range was not u sed to interpret th is result as normal/abnormal . BACTERIA (test code = Few Negative A 7265253801) MUCOUS (test code = Moderate Negative LPF A 9000645591) SQ EPITH (test code = HPF 0246630226) CA OXALATE (test code = See_Comment H [Au tomated message] 3940066724) The system [employer] generated this result transmit sherice reference range : <=1 HPF. The refere nce range was not u sed to interpret th is result as normal/abnormal . Ictotest (test code = Negative 5917822711) Lab Interpretation (test Abnormal code = 41163-5) [facility] CenterComplete Metabolic [id number] 16:34:55 Test Item Value Reference Range Interpretation Comments NA (test code = 139 mmol/L 135-145 8130167537) K (test code = 4.3 mmol/L 3.5-5.0 9272756589) CL (test code = 105 mmol/L 98-108 8907691671) CO2 TOTAL (test code 26 mmol/L 23-31 = 2634380333) AGAP (test code = 2-16 3659987423) BUN (test code = 11 mg/dL 7-23 5703458348) GLUCOSE (test code = 95 mg/dL 70-110 9751101533) CREATININE (test code 0.70 mg/dL 0.50-1.04 = 2925551213) TOTAL BILI (test code 0.6 mg/dL 0.1-1.1 = 3594779695) CALCIUM (test code = 8.9 mg/dL 8.6-10.6 1425760774) T PROTEIN (test code 7.7 g/dL 6.3-8.2 = 3281409298) ALBUMIN (test code = 4.1 g/dL 3.5-5.0 3353905124) ALK PHOS (test code = 79 U/L 34-122 0452379533) ALTv (test code = 10 U/L 5-35 1742-6) AST(SGOT) (test code 22 U/L 13-40 = 6016275140) eGFR (test code = mL/min/1.73m2 9786341094) LYNDSAY (test code = LYNDSAY) Association of [...] or urine or abnormalities in imaging tests). [facility] CenterLipase, [id number] 16:34:14 Test Item Value Reference Range Interpretation Comments LIPASE (test code = 6054173496) 45 U/L 0-220 Lab Interpretation (test code = Normal 34350-1) [facility] CenterCB with [id number] 16:21:12 Test Item Value Reference Range Interpretation Comments WBC (test code = See_Comment [Automated 3290-2) message] The sy stem which generated this [...] (test code = 54.4 fL 39.0-49.9 H 86486-2) RDW-CV (test code = 18.3 % 12.0-15.5 H 788-0) PLT (test code = See_Comment H [Automated 777-3) message] The sy stem which generated this result transmitted reference range : 166 - 358 10*3/ ?L. The reference r zoe was not used to interpret this result as normal/abnormal . MPV (test code = 8.5 fL 9.5-12.9 L 83309-5) NRBC/100 WBC (test See_Comment [Automat ed code = 2639713252) message] The system which generated this result transmitted reference range : 0.0 - 10.0 /100 WBCs. The refer ence range was not u sed to interpret th is result as normal/abnormal . NRBC x10^3 (test code <0.01 See_Comment [Auto mated = 0546907934) message] The s ystem which generated this result transmitted reference range : 10*3/?L. The reference range was not used to interpret this result as normal/abnormal . GRAN MAT (NEUT) % 78.3 % (test code = 770-8) IMM GRAN % (test code 0.40 % = 6238507993) LYMPH % (test code = 15.4 % 736-9) MONO % (test code = 4.8 % 5905-5) EOS % (test code = 0.1 % 713-8) BASO % (test code = 1.0 % 706-2) GRAN MAT x10^3(ANC) 7.15 10*3/uL 1.88-7.09 H (test code = 3522988792) IMM GRAN x10^3 (test 0.04 10*3/uL 0.00-0.06 code = 9275461242) LYMPH x10^3 (test code 1.41 10*3/uL 1.32-3.29 = 731-0) MONO x10^3 (test code 0.44 10*3/uL 0.33-0.92 = 742-7) EOS x10^3 (test code = <0.03 0.03-0.39 L 711-2) BASO x10^3 (test code 0.09 10*3/uL 0.01-0.07 H = 704-7) Lab Interpretation Abnormal (test code = 90086-0) [facility]
[2022-12-21] MEDS ORDERED: LORazepam 2 MG/ML VIAL ONE (04:24)
[2022-12-21] MEDS ORDERED: MORPHINE 4 MG/ML SYR ONE (04:25)
[2022-12-21] MEDS ORDERED: NA CHLORIDE 0.9% 100 ML ONE (04:26)
[2022-12-21] MEDS ORDERED: METHOCARBAMOL 1,000 MG/10 ML VIAL ONE (04:26)
[2022-12-21] MEDS ORDERED: NA CHLORIDE 0.9% 500 ML ONE (04:26)
--- NOTE | 2022-12-21 06:34 | EDPHYS ---
Physician Documentation [facility] Name: Heather Coon Age: 52 yrs Sex: Female : 1970 Arrival Date: 12/21/2022 Time: 03:28 Bed 16 Private MD: ED Physician Matt Urias HPI: 12/22 03:49 This 52 yrs old Female presents to ER via EMS with complaints of pain. kdr 03:49 Patient states that she and her family have been staying in a [employer]. This evening she kdr was sleeping on the bed with her granddaughter at the [employer] when the bed apparently/allegedly collapsed on the floor. That jolted her and injured her back. She states that this made her heart rate and blood pressure go up. She otherwise denies any specific injury.. Onset: The symptoms/episode began/occurred suddenly, just prior to arrival. Severity of symptoms: At their worst the symptoms were mild moderate just prior to arrival, in the emergency department the symptoms are unchanged. The patient has experienced similar episodes in the past, several times. The patient has not recently seen a physician. Historical: - Allergies: 12/21 03:29 fluoxetine; ha1 03:29 Green Tea; ha1 03:29 Keppra; not an allergy, pt reports continued seizures while taking medication; ha1 - PMHx: 03:29 Anxiety; Bipolar disorder; Cancer-Cervical; Chronic obstructive lung disease; Chronic ha1 pain; Congestive heart failure; Depression; Diverticulitis; Herniated Back Disc; Hypertension; intestinal mass; Myocardial infarction; pt reports hx of seizures; Spastic Muscles; stroke; - PSHx: 03:29 cervical fusion; Cholecystectomy; foot; Tonsillectomy; ha1 - Immunization history:: Adult Immunizations unknown. - Social history:: Smoking status: Patient reports the use of cigarette tobacco products, smokes one pack cigarettes per day. ROS: 12/22 03:49 Constitutional: Negative for fever, chills, and weight loss, Eyes: Negative for injury, kdr pain, redness, and discharge, ENT: Negative for injury, pain, and discharge, Neck: Negative for injury, pain, and swelling, Cardiovascular: Negative for chest pain, palpitations, and edema, Respiratory: Negative for shortness of breath, cough, wheezing, and pleuritic chest pain, Abdomen/GI: Negative for abdominal pain, nausea, vomiting, diarrhea, and constipation, : Negative for injury, bleeding, discharge, and swelling, MS/Extremity: Negative for injury and deformity, Skin: Negative for injury, rash, and discoloration, Neuro: Negative for headache, weakness, numbness, tingling, and seizure activity. Psych: Negative for depression, anxiety, suicide ideation, homicidal ideation, and hallucinations, Allergy/Immunology: Negative for hives, rash, and allergies, Endocrine: Negative for neck swelling, polydipsia, polyuria, polyphagia, and marked weight changes, Hematologic/Lymphatic: Negative for swollen nodes, abnormal bleeding, and unusual bruising. Back: Positive for injury or acute deformity, decreased range of motion, pain at rest, Negative for decreased range of motion, pain at rest, pain with movement, radiated pain. Exam: 03:49 Constitutional: This is a well developed, well nourished patient who is awake, alert, kdr and in no acute distress. Head/Face: Normocephalic, atraumatic. Eyes: Pupils equal round and reactive to light, extra-ocular motions intact. Lids and lashes normal. Conjunctiva and sclera are non-icteric and not injected. Cornea within normal limits. Periorbital areas with no swelling, redness, or edema. Neck: Trachea midline, no thyromegaly or masses palpated, and no cervical lymphadenopathy. Supple, full range of motion without nuchal rigidity, or vertebral point tenderness. No Meningismus. Chest/axilla: Normal chest wall appearance and motion. Nontender with no deformity. No lesions are appreciated. Cardiovascular: Regular rate and rhythm with a normal S1 and S2. No gallops, murmurs, or rubs. Normal PMI, no JVD. No pulse deficits. Respiratory: Lungs have equal breath sounds bilaterally, clear to auscultation and percussion. No rales, rhonchi or wheezes noted. No increased work of breathing, no retractions or nasal flaring. Abdomen/GI: Soft, non-tender, with normal bowel sounds. No distension or tympany. No guarding or rebound. No evidence of tenderness throughout. Back: No spinal tenderness. No costovertebral tenderness. Full range of motion. Skin: Warm, dry with normal turgor. Normal color with no rashes, no lesions, and no evidence of cellulitis. MS/ Extremity: Pulses equal, no cyanosis. Neurovascular intact. Full, normal range of motion. Neuro: Awake and alert, GCS 15, oriented to person, place, time, and situation. Cranial nerves II-XII grossly intact. Motor strength 5/5 in all extremities. Sensory grossly intact. Cerebellar exam normal. Normal gait. Psych: Awake, alert, with orientation to person, place and time. Behavior, mood, and affect are within normal limits. 03:49 Abdomen/GI: Inspection: obese Vital Signs: 12/21 03:38 BP 140 / 106; Pulse 129; Resp 20; Temp 99.1(O); Pulse Ox 98% on R/A; Weight 87.09 kg; oe Height 5 ft. 2 in. ; Pain 10/10; 04:30 BP 133 / 81; Pulse 124; Resp 18 S; Pulse Ox 97% on R/A; ha1 05:22 BP 137 / 71; Pulse 102; Resp 20 S; Pulse Ox 98% on R/A; ha1 06:15 BP 129 / 79; Pulse 93; Resp 16 S; Pulse Ox 97% on R/A; ha1 03:38 Body Mass Index 35.12 (87.09 kg, 157.48 cm) oe 03:38 Pain Scale: Adult oe MDM: 06:33 Patient medically screened. kdr 12/22 03:51 Data reviewed: vital signs, nurses notes. kdr 12/21 04:04 Order name: CT Traumagram (Head C Spine CAP wo con) kdr Administered Medications: 12/21 04:18 Drug: NS 0.9% IV 500 ml Route: IV; Rate: bolus; Site: left forearm; ha1 06:30 Follow up: Response: No adverse reaction; IV Status: Completed infusion; IV Intake: ha1 500ml 04:20 Drug: morphine IVP or IV 4 mg Route: IVP; Infused Over: 4 mins; Site: left forearm; ha1 04:50 Follow up: Response: No adverse reaction; Pain is decreased; RASS: Alert and Calm (0) ha1 04:24 Drug: Ativan IVP 1 mg Route: IVP; Site: left forearm; ha1 04:50 Follow up: Response: No adverse reaction ha1 04:33 Drug: Methocarbamol IVPB 1 grams Route: IVPB; Infused Over: 1 hrs; Site: left forearm; ha1 05:40 Follow up: Response: No adverse reaction; IV Status: Completed infusion; IV Intake: ha1 100ml Disposition Summary: 12/21/22 06:33 Discharge Ordered Location: Home kdr Problem: new kdr Symptoms: have improved kdr Condition: Stable kdr Diagnosis - Unspecified symptoms and signs involving the musculoskeletal system kdr Followup: kdr - With: Private Physician - When: 2 - 3 days - Reason: If symptoms return, Further diagnostic work-up, Recheck today's complaints, Continuance of care, Re-evaluation by your physician Discharge Instructions: - Discharge Summary Sheet kdr - Musculoskeletal Pain kdr Forms: - Medication Reconciliation Form kdr - Thank You Letter kdr - Prescription Opioid Use kdr Prescriptions: - acetaminophen-codeine 300-30 mg Oral tablet - take 1 tablet by ORAL route every 4 hours As needed; 6 tablet; Refills: 0, kdr Product Selection Permitted Signatures: Dispatcher [employer] Matt Jaquez MD MD kdr Maria Elena Cottrell RN RN ha1
--- NOTE | 2022-12-21 06:34 | ER ---
Nurse's Notes [facility] Name: Heather Coon Age: 52 yrs Sex: Female : 1970 Arrival Date: 12/21/2022 Time: 03: Bed 16 Private MD: Diagnosis: Unspecified symptoms and signs involving the musculoskeletal system Presentation: 12/21 03:29 Chief complaint: EMS states: 52 year old female reports that her bed collapsed and hurt ha1 her back. She has elevated heart rate and blood pressure. 03:29 Coronavirus screen: Vaccine status: Patient reports receiving the 2nd dose of the covid ha1 vaccine. Datacast[employer]. Ebola Screen: No symptoms or risks identified at this time. Initial Sepsis Screen: Does the patient meet any 2 criteria? HR > 90 bpm. Does the patient have a suspected source of infection? No. Patient's initial sepsis screen is negative. Risk Assessment: Do you want to hurt yourself or someone else? Patient reports no desire to harm self or others. Onset of symptoms was December 21, 2022. 03:29 Method Of Arrival: EMS: [facility] ha1 03:29 Acuity: ANDER 3 ha1 Triage Assessment: 03:29 General: Appears uncomfortable, Behavior is cooperative, anxious. Pain: Complains of ha1 pain in back Pain radiates to left leg Pain currently is 10 out of 10 on a pain scale. Quality of pain is described as throbbing, Pain began suddenly, Is continuous, Aggravated by increased activity. EENT: No signs and/or symptoms were reported regarding the EENT system. Neuro: Level of Consciousness is awake, alert, obeys commands, Oriented to person, place, time, situation. Cardiovascular: Reports pt. states " I have a history of heart problems, I think that is why my heart rate is elevated. Heart tones S1 S2 present Patient's skin is warm and dry. Rhythm is sinus tachycardia. Respiratory: Airway is patent Trachea midline Respiratory effort is even, unlabored, Respiratory pattern is regular, symmetrical. GI: No signs and/or symptoms were reported involving the gastrointestinal system. Abdomen is round non-distended, Bowel sounds present X 4 quads. : No signs and/or symptoms were reported regarding the genitourinary system. Derm: Skin is fragile, Skin is moist, Skin is normal. Musculoskeletal: Circulation, motion, and sensation intact. Range of motion: intact in all extremities, Reports pain in back I was in the [facility] bed when the bed collapsed and hurt my back. Injury Description: abrasion on the left forearm. Historical: - Allergies: 03:29 fluoxetine; ha1 03:29 Green Tea; ha1 03:29 Keppra; not an allergy, pt reports continued seizures while taking medication; ha1 - PMHx: 03:29 Anxiety; Bipolar disorder; Cancer-Cervical; Chronic obstructive lung disease; Chronic ha1 pain; Congestive heart failure; Depression; Diverticulitis; Herniated Back Disc; Hypertension; intestinal mass; Myocardial infarction; pt reports hx of seizures; Spastic Muscles; stroke; - PSHx: 03:29 cervical fusion; Cholecystectomy; foot; Tonsillectomy; ha1 - Immunization history:: Adult Immunizations unknown. - Social history:: Smoking status: Patient reports the use of cigarette tobacco products, smokes one pack cigarettes per day. Screenin:29 Abuse screen: Denies threats or abuse. Denies injuries from another. Nutritional ha1 screening: No deficits noted. Tuberculosis screening: No symptoms or risk factors identified. 03:29 [facility] ED Fall Risk Assessment (Adult) History of falling in the last 3 months, ha1 including since admission Yes- single mechanical fall (1 pt) Confusion or Disorientation No (0 pts) Intoxicated or Sedated No (0 pts) Impaired Gait No (0 pts) Mobility Assist Device Used No (0 pt) Altered Elimination No (0 pt) Score/Fall Risk Level 0 - 2 = Low Risk Oriented to surroundings, Maintained a safe environment, Educated pt \\T\\ family on fall prevention, incl call for assistance when getting out of bed, Hourly rounding (assess needs \\T\\ fall precautionary measures) done. Assessment: 03:29 Reassessment: see triage assessment. ha1 03:50 Reassessment: Dr. Urias in the room. ha1 04:34 Reassessment: Patient and/or family updated on plan of care and expected duration. Pain ha1 level reassessed. Patient is alert, oriented x 3, equal unlabored respirations, skin warm/dry/pink. going to CT. 05:22 Reassessment: Patient and/or family updated on plan of care and expected duration. Pain ha1 level reassessed. Patient is alert, oriented x 3, equal unlabored respirations, skin warm/dry/pink. pain 4/10. 06:15 Reassessment: Patient and/or family updated on plan of care and expected duration. Pain ha1 level reassessed. Patient is alert, oriented x 3, equal unlabored respirations, skin warm/dry/pink. Patient states feeling better. Patient states symptoms have improved. Vital Signs: 03:38 BP 140 / 106; Pulse 129; Resp 20; Temp 99.1(O); Pulse Ox 98% on R/A; Weight 87.09 kg; oe Height 5 ft. 2 in. ; Pain 10/10; 04:30 BP 133 / 81; Pulse 124; Resp 18 S; Pulse Ox 97% on R/A; ha1 05:22 BP 137 / 71; Pulse 102; Resp 20 S; Pulse Ox 98% on R/A; ha1 06:15 BP 129 / 79; Pulse 93; Resp 16 S; Pulse Ox 97% on R/A; ha1 03:38 Body Mass Index 35.12 (87.09 kg, 157.48 cm) oe 03:38 Pain Scale: Adult oe ED Course: 03:29 Patient arrived in ED. sb4 03:29 Patient has correct armband on for positive identification. Placed in gown. Bed in low ha1 position. Call light in reach. Side rails up X 1. Adult w/ patient. 03:37 Matt Urias MD is Attending Physician. kdr 03:45 Maria Elena Cottrell RN is Primary Nurse. ha1 03:49 Triage completed. ha1 04:13 Inserted saline lock: 20 gauge in left forearm, using aseptic technique. oe 05:10 CT Traumagram (Head C Spine CAP wo con) In Process Unspecified. EDMS 07:07 No provider procedures requiring assistance completed. IV discontinued, intact, ha1 bleeding controlled, No redness/swelling at site. Pressure dressing applied. Administered Medications: 04:18 Drug: NS 0.9% IV 500 ml Route: IV; Rate: bolus; Site: left forearm; ha1 06:30 Follow up: Response: No adverse reaction; IV Status: Completed infusion; IV Intake: ha1 500ml 04:20 Drug: morphine IVP or IV 4 mg Route: IVP; Infused Over: 4 mins; Site: left forearm; ha1 04:50 Follow up: Response: No adverse reaction; Pain is decreased; RASS: Alert and Calm (0) ha1 04:24 Drug: Ativan IVP 1 mg Route: IVP; Site: left forearm; ha1 04:50 Follow up: Response: No adverse reaction ha1 04:33 Drug: Methocarbamol IVPB 1 grams Route: IVPB; Infused Over: 1 hrs; Site: left forearm; ha1 05:40 Follow up: Response: No adverse reaction; IV Status: Completed infusion; IV Intake: ha1 100ml Intake: 05:40 IV: 100ml; Total: 100ml. ha1 06:30 IV: 500ml; Total: 600ml. ha1 Outcome: 06:33 Discharge ordered by . kdr 07:07 Discharged to home via wheelchair, with family. ha1 07:07 Condition: stable 07:08 Patient left the ED. ha1 Signatures: Dispatcher [employer] EDMS Matt Urias MD MD kdr Espinosa, Orlando oe Ayala, Heidy, RN RN ha1 Mariola Mahmood PA-C PA-C sb4 Corrections: (The following items were deleted from the chart) 03:59 03:29 Musculoskeletal: Circulation, motion, and sensation intact. Range of motion: ha1 intact in all extremities, Reports pain in back ha1
[2022-12-21 07:17] VITALS: TEMP 99.1
[2022-12-21 07:32] VITALS: BP 129/79; O2SAT 97
--- NOTE | 2022-12-22 14:57 | RAD REPORT ---
EXAM DESCRIPTION: CT - Head C Spine Cap Wo Con - 12/21/2022 6:36 am CLINICAL HISTORY: The patient is 52 years old and is Female; PAIN TECHNIQUE: Axial computed tomography images of the head/brain and cervical spine without intravenous contrast. Sagittal and coronal reformatted images were created and reviewed. This CT exam was pe rformed using one or more of the following dose reduction techniques: automated exposure control, a djustment of the mA and/or kV according to patient size, and/or use of iterative reconstruction techn ique. COMPARISON: No relevant prior studies available. FINDINGS: Limitations: Evaluation of the inferior cerebellum is somewhat limited due to field of v iew. Brain: See above. Ventricles: Unremarkable. No ventriculomegaly. Skull: No acute fracture. Sinuses: Unremarkable as visualized. No acute sinusitis. Mastoid air cells: Unremarkable as visualized. No mastoid effusion. Vertebrae: Anterior plate and screw fixation from C4 through C7. No acute fracture. Normal alignment. Discs/spinal canal/neural foramina: No acute findings. No spinal canal stenosis. Soft tissues: Unremarkable. * A single impression for all exams can be found at the end of this report EXAM DESCRIPTION: CT Chest, Abdomen and Pelvis Without Intravenous Contrast CLINICAL HISTORY: The patient is 52 years old and is Female; PAIN TECHNIQUE: Axial computed tomography images of the chest, abdomen and pelvis without intravenous con trast. Sagittal and coronal reformatted images were created and reviewed. This CT exam was perfor med using one or more of the following dose reduction techniques: automated exposure control, adjus tment of the mA and/or kV according to patient size, and/or use of iterative reconstruction technique . COMPARISON: No relevant prior studies available. FINDINGS: CHEST: Lungs: Calcified granuloma in the left upper lobe. Pleural space: Unremarkable. No significant effusion. No pneumothorax. Heart: Coronary artery calcification. No significant pericardial effusion. ABDOMEN: Liver: Hepatomegaly. Gallbladder and bile ducts: Gallbladder is surgically absent. No ductal dilation. Pancreas: Unremarkable. No ductal dilation. Spleen: Unremarkable. No splenomegaly. Adrenals: 2.5 cm left adrenal nodule with attenuation suggestive of an adrenal adenoma. No follow -up imaging is recommended. Kidneys and ureters: Unremarkable. No obstructing stones. No hydronephrosis. Stomach and bowel: Mild peridiverticular stranding involving the left colon in the left lower jessika drant. There may be some mild mucosal thickening involving the small bowel in the left upper quadran t. Scattered colonic diverticula. No obstruction. PELVIS: Appendix: No findings to suggest acute appendicitis. Bladder: Unremarkable. No stones. Reproductive: Unremarkable as visualized. CHEST, ABDOMEN and PELVIS: Intraperitoneal space: Unremarkable. No significant fluid collection. No free air. Bones/joints: Disc space narrowing with degenerative endplate changes in the spine. No acute fracture. No dislocation. Soft tissues: Unremarkable. Vasculature: Scattered atherosclerotic vascular calcifications. Lymph nodes: Unremarkable. No enlarged lymph nodes. * A single impression for all exams can be found at the end of this report IMPRESSION: CT Head and Cervical Spine Without Intravenous Contrast: No acute intracranial abnormality. No acute findings in the cervical spine. CT Chest, Abdomen and Pelvis Without Intravenous Contrast: 1. Mild peridiverticular stranding involving the left colon in the left lower quadrant. Correlate with any concern for mild diverticulitis. 2. There may be some mild mucosal thickening involving the small bowel in the left upper quadrant. Correlate with any concern for enteritis. 3. Additional non-emergent findings as above. Electronically signed by: Zack Bingham MD 12/21/2022 6:12 AM CDT Due to temporary technical issues with the PACS/Fluency reporting system, reports are being signed by the in house radiologist without review as a courtesy to ensure prompt reporting. The interpreting r adiologist is fully responsible for the content of the report.
== END 2022-12-21 07:08 | disposition home or self-care (01) ==
LOC: ER 03:28
DX: R29.91 Unspecified symptoms and signs involving the musculoskeletal system (principal)
CPT/HCPCS: 70450; 71250; 72125; 96361; 96365; 96375; 99284; J2800; J7040

== ENCOUNTER 2023-01-09 08:50 | Emergency (ER) | payer SELFPAY ==
--- OUTSIDE RECORDS SUMMARY | 2023-01-09 09:01 | XMS REPORT | Continuity of Care Document ---
:1970 Author Organization [facility] t Address [address] [place] [address] Care Team Providers Name Role Phone Aneta Silva Primary Care Physician [phone] Alfonso MULLIGAN Attending Clinician Unavailable Alfonso Lopez Attending Clinician RITCHIE WARREN Attending Clinician Unavailable Ritchie Warren MD Attending Clinician Shy Beckman RN Attending Clinician Halima Mendoza MD Attending Clinician Jen Yepez MD Attending Clinician Parrish Diane MD Attending Clinician PARRISH DIANE Attending Clinician Unavailable LORENZA HER Attending Clinician Unavailable Sav Rondon MD Attending Clinician Lorenza Her MD Attending Clinician Nicole ORACLE MANUFACTURING CONSULTANT, Maria Teresa Attending Clinician CHANTEL MATTHEWS Attending Clinician Unavailable CHANTEL MATTHEWS Attending Clinician Unavailable Brandyn Mcfarlane MD Attending Clinician SELINA MARTNIES Attending Clinician Unavailable Sam Sapna Freya Attending Clinician Glory Esteves MD Attending Clinician [phone] Selina Martines MD Attending Clinician Vaccine, [place] [facility] Attending Clinician Unavailable Jose Frederick MD Attending Clinician JOSE FREDERICK Attending Clinician Unavailable NICHELLE ALLISON Attending Clinician Unavailable Nichelle Bishop Attending Clinician Doctor Unassigned, [place] Attending Clinician Unavailable Miky Nava RN Attending Clinician Unavailable Fabrice Gordillo Attending Clinician Lydia Eaton Attending Clinician Unknown, Attending Attending Clinician Unavailable UNKNOWN, ATTENDING Attending Clinician Unavailable Anali Rascon Attending Clinician Yehuda Arcos MD Attending Clinician Alfonso MULLIGAN Admitting Clinician Unavailable RITCHIE WARREN Admitting Clinician Unavailable JEN YEPEZ [...] Date Seizure Seizure Disease Recurre [facility]02 [facility] 00:00: Medical 00 Center Cardiomyop Cardiomyop Disease Active U nivers athy athy 1-13 ity of 00:00: [place] 00 Medical Branch NSVT NSVT Disease Active [...] artery 1-12 ity of disease disease 00:00: [place] involving involving 00 Medi kwame [place] Branch coronary coronary artery of artery of [place] heart heart without without angina angina pectoris pectoris Snores Snores Disease Active Univers 1-12 ity of 00:00: [place] 00 Medical Branch Cigarette Cigarette Disease Active Uni vers smoker smoker 1-12 ity of 00:00: [place] 00 Medical Branch Primary Primary Disease Active Univers hypertensi hypertensi 1-12 it y of on on 00:00: [place] 00 Medical Branch Other Other Disease Active Univers hyperlipid hyperlipid 1-12 it y of emia emia 00:00: [place] 00 Medical Branch Coronary Coronary Disease Active Unive rs artery artery 1-12 ity of disease disease 00:00: [place] involving involving 00 Medi kwame [place] Branch coronary coronary artery of artery of [place] heart heart without without angina angina pectoris [...] 3 ity of 00:00: [place] [facility] Allergies, Adverse Reactions, Alerts Allergy Allergy Status Severity Reaction(s) Onset Inactive Treating Comm ents Source Name Type Date Date Clinician LEVETIRA DRUG Active Other-Cmnt Univ ers CETAM INGREDI 11-17 ity of 00:00: [place] [facility] Levetira Propensi Active Other - See Makes U nivers cetam ty to comments 11-17 seizures ity of adverse 00:00: worse [place] reaction 00 Medical s Branch FLUOXETI Allergy Active Med [facility] Green Propensi Active [facility] adverse 00:[facility]: Medical reaction 00 Center s Fluoxeti Propensi Active Rash [facility] adverse 00:00: Medical reaction 00 Center s GREEN Allergy Active [facility] 08-02 00:00: 00 Fluoxeti Propensi Active Unknown - Uni vers ne ty to See comments 03-25 ity of adverse 00:00: [place] reaction Medical s Branch FLUOXETI DRUG Active Unknown-Cmnt [...] TEA INGREDI 08-10 ity of 00:00: [place] [facility] Green [...] Stop Date Source Natural mother Alcohol abuse [facility] Natural mother Cancer [facility] Natural mother Diabetes [facility] Natural mother Heart disease [facility] Natural mother Hyperlipidemia [facility] Natural mother Kidney disease [facility] Natural mother Stroke [facility] Paternal uncle Diabetes [facility] Social History Social Habit Start Date Stop Date Quantity Comments Source History SDOH Social [facility] Med ical Together Branch History SDOH Social Unive rsity of [facility] History SDOH Social Unive rsity of [facility] Medical Membership Branch History SDOH Social Unive rsity of [facility] Medical Meetings Branch History of tobacco Cigarette Smoker [facility] use [facility] History SDOH [facility] Alcohol Frequency Medical Center History SDOH [facility] Alcohol Std Drinks Medica Center History SDOH [facility] Alcohol Binge Medical [address] Exposure to 2022-12-01 2022-12-11 Not sure University of SARS-CoV-2 (event) 00:00:00 08:54:00 [facility] Cigarettes smoked 2022-08-02 2022-08-02 [facility] [...] Social 2022-08-01 2022-08-01 5 Unive rsity of [facility] Phone 00:00:00 00:00:00 [place] M edical Branch History SDOH Social 2022-08-01 2022-08-01 5 Unive [facility]ity of [facility] 00:00:00 00:00:00 [place] [facility] History SDOH 2022-08-01 2022-08-01 0 University o f Physical Activity 00:00:00 00:00:00 [facility] edical DPW Branch History SDOH 2022-08-01 2022-08-01 0 University o f Physical Activity 00:00:00 00:00:00 [facility] edical MPS Branch History SDOH 2022-08-01 2022-08-01 3 University o f Financial 00:00:00 00:00:00 [place] [facility] History SDOH Food 2022-08-01 2022-08-01 1 Univers ity of Worry 00:00:00 00:00:00 [place] [facility] History SDOH Food 2022-08-01 2022-08-01 1 Univers ity of Scarcity 00:00:00 00:00:00 [place] [facility] History SDOH 2022-08-01 2022-08-01 2 University o f Transport Med 00:00:00 00:00:00 [place] Medic al Branch History SDCT 2022-08-01 2022-08-01 2 University o f Transport Non-Med 00:00:00 00:00:00 [facility] edical Branch Cigarette 2022-07-31 2022-07-31 University of pack-years 00:00:00 00:00:00 [facility] Education 2022-07-31 2022-07-31 14 University of 00:00:00 00:00:00 [facility] Sex Ass[birth year] At [birth year] [facility] 00:00:00 00:00:00 [facility] Center Smoking Status Start Date Stop Date Source Smokes tobacco daily 2022-08-02 00:00:00 [facility] Medications Ordered Filled Start Stop Current Ordering Indication Dosage Frequency Signature Comments Components Source Medication Medication Date Date Medication? Clinician (SIG) Name Name lacosamide 2022- No 200mg 200 mg, IV Univers (VIMPAT) 5-25 05-25 Piggyback, ity of 200 mg in 19:45: 19:57 ONCE, 1 [place] NaCl 0.9% 00 :00 dose, On Medica l (NS) 50 mL [facility] Branch piggyback 12/11/22 at 1445, Administer over 30 Minutes, 50 mL
F aculty member approving Restricted medication : Alfonso MULLIGAN ketorolac 2022- No 15mg 15 mg, Unive rs (TORADOL) 12-11 05-25 Slow IV ity of injection 18:15: 17:25 Push, [place] 15 mg 00 :00 ONCE, 1 Medical dose, On Branch [facility] 12/11/22 at 1315, MICHAEL iopamidol 2022- No [id number] 80mL 80 mL, U nivers (ISOVUE 12-11-25 Intravenou ity o f 370-500 mL) 16:30: 16:27 s, ONCE, 1 [place] injection 00 :00 dose, On Medica l 80 mL [facility] Branch 12/11/22 at 1130, Routine nitroglycer 2022- No .5[in_u 0.5 Inch, Univers in (NITROL) 12-11-25 s] Transderma i ty of 2 % 15:30: 14:31 l (Apply [place] ointment 00 :00 To Skin), Medica l 0.5 Inch ONCE, 1 Branch dose, On [facility] 12/11/22 at 1030, MICHAEL aspirin 2022- No 324mg 324 mg, Unive rs chewable 12-11-25 Oral, ity of tablet 324 15:30: 14:30 ONCE, 1 [place] as mg 00 :00 dose, On [facility] Branch 12/11/22 at 1030, Routine ondansetron 2022- No 4mg 4 mg, Slow Univers (ZOFRAN 12-11 05-25 IV Push, ity of (PF)) 15:30: 14:29 ONCE, 1 [place] injection 4 00 :00 dose, On Medi kwame mg [facility] Branch 12/11/22 at 1030, MICHAEL LORazepam 2022- No 1mg 1 mg, Slow U nivers (ATIVAN) 12-11 05-25 IV Push, ity of injection 1 15:00: 14:57 ONCE, 1 [place] mg 00 :00 dose, On Medical [facility] Branch 12/11/22 at 1000, STAT Lacosamide Yes [id number] 100mg Take 1 Univers (VIMPAT) 5-25 tablet by ity of 100 mg 00:00: mouth in [place] tablet 00 the Medical morning Branch and 1 tablet in the evening. acetaminoph 2022- No 1{tbl} 1 tablet, Univers en-codeine 11-18 Oral, ity of (TYLENOL 05:30: 05:30 ONCE, 1 [place] #3) 300-30 00 :00 dose, On Medic al mg tablet 1 Thu11/18/22 Br anch tablet at 0030, MICHAEL methocarbam 2022- No 1000mg 1,000 mg, Univers oL 11-18 Oral, ity of (ROBAXIN) 05:30: 05:30 ONCE, 1 [place] tablet 00 :00 dose, On Medical 1,000 mg [facility] 11/18/22 Bran h at 0030, MICHAEL ondansetron 2022- No 4mg 4 mg, Slow Univers (ZOFRAN 11-18 IV Push, ity of (PF)) 04:45: 03:38 ONCE, 1 [place] injection 4 00 :00 dose, On Medi kwame mg [facility] 11/17/22 Branch at 2345, MICHAEL morpHINE (4 2022- No 4mg 4 mg, Slow Univers mg/mL) 11-18 IV Push, ity of injection 4 03:45: 03:38 ONCE, 1 [place] mg 00 :00 dose, On Medical [facility] 11/17/22 Branch at 2245, Routine methocarbam 2022- No 1000mg 1,000 mg, Univers oL 11-18 Intravenou ity of (ROBAXIN) 00:30: 23:47 s, ONCE, 1 [place] injection 00 :00 dose, On Medica l 1,000 mg [facility] 11/17/22 Branc h at 1930, MICHAEL methocarbam 2022-0 Yes [id number] 1000mg Take 2 Univers oL 500 mg -02 tablets by ity of tablet 00:00: mouth 4 [place] 00 (four) Medical times Branch daily as needed for Pain (scale 7-10). methocarbam 2023-0 Yes [id number] 1000mg Take 2 Univers oL 500 mg [...] 1-13 by mouth ity of 23:49: daily. [address] omega-3 0 Yes 1g Take 1 g Univer s fatty 1-13 by mouth ity of acids-vitam 23:49: daily. [place] in E (FISH 34 Medical OIL) 1,000 Branch mg capsule loratadine 0 Yes Take by Univ ers (CLARITIN 1-13 mouth ity of LIQUI-GEL) 23:49: daily. [place] 10 mg Medical capsule Branch ondansetron 0 Yes 4mg Take 4 mg U nivers 4 mg tablet 1-13 by mouth ity of 23:49: every 8 [place] [address] (eight) Medical hours as Branch needed. pantoprazol 0 Yes 40mg Take 40 mg Univers e 40 mg EC 1-13 by mouth ity o f tablet 23:49: daily. [address] MULTIVITAMI 2022-0 Yes 1{tbl} Take 1 Tab Univers N ORAL 1-13 by mouth ity of 23:49: daily. [address] omega-3 2022-0 Yes 1g Take 1 g Univer s fatty 1-13 by mouth ity of acids-vitam 23:49: daily. [place] in E (FISH 34 Medical OIL) 1,000 Branch mg capsule loratadine 0 Yes Take by Univ ers (CLARITIN 1-13 mouth ity of LIQUI-GEL) 23:49: daily. [place] 10 mg 34 Medical capsule Branch ondansetron 2022-0 Yes 4mg Take 4 mg U nivers 4 mg tablet 1-13 by mouth ity of 23:49: every 8 [place] [address] (eight) Medical hours as Branch needed. pantoprazol 0 Yes 40mg Take 40 mg Univers e 40 mg EC 1-13 by mouth ity o f tablet 23:49: daily. [address] MULTIVITAMI Yes 1{tbl} Take 1 Tab Univers N ORAL 1-13 by mouth ity of 23:49: daily. [address] omega-3 0 Yes 1g Take 1 g Univer s fatty 1-13 by mouth ity of acids-vitam 23:49: daily. [place] in E (FISH 34 Medical OIL) 1,000 Branch mg capsule loratadine 0 Yes Take by [facility] ers (CLARITIN 1-13 mouth ity of LIQUI-GEL) 23:49: daily. [place] 10 mg 34 Medical capsule Branch ondansetron 0 Yes 4mg Take 4 mg U nivers 4 mg tablet 1-13 by mouth ity of 23:49: every 8 [place] [address] (eight) Medical hours as Branch needed. pantoprazol 2022-0 Yes 40mg Take 40 mg Univers e 40 mg EC 1-13 by mouth ity o f tablet 23:49: daily. [address] MULTIVITAMI Yes 1{tbl} Take 1 Tab Univers N ORAL 1-13 by mouth ity of 23:49: daily. [address] omega-3 Yes 1g Take 1 g Univer s fatty 1-13 by mouth ity of acids-vitam 23:49: daily. [place] in E (FISH 34 Medical OIL) 1,000 Branch mg capsule loratadine 0 Yes Take by [facility] ers (CLARITIN 1-13 mouth ity of LIQUI-GEL) 23:49: daily. [place] 10 mg 34 Medical capsule Branch ondansetron 2022-0 Yes 4mg Take 4 mg U nivers 4 mg tablet 1-13 by mouth ity of 23:49: every 8 [place] [address] (eight) Medical hours as Branch needed. pantoprazol 2022-0 Yes 40mg Take 40 mg Univers e 40 mg EC 1-13 by mouth ity o f tablet 23:49: daily. [address] MULTIVITAMI 2023-0 Yes 1{tbl} Take 1 Tab Univers N ORAL 1-13 by mouth ity of 23:49: daily. [address] Branch omega-3 2022-0 Yes 1g Take 1 g Univer s fatty -13 by mouth ity of acids-vitam 23:49: daily. [place] in E (FISH 34 Medical OIL) 1,000 Branch mg capsule loratadine 0 Yes Take by Univ ers (CLARITIN - mouth ity of LIQUI-GEL) 23:49: daily. [place] 10 mg 34 Medical capsule Branch ondansetron 0 Yes 4mg Take 4 mg U nivers 4 mg tablet 13 by mouth ity of 23:49: every 8 [place] 34 (eight) Medical hours as Branch needed. pantoprazol 0 Yes 40mg Take 40 mg Univers e 40 mg EC 08-01 by mouth ity o f tablet 23:49: daily. [address] Branch benzonatate 0 Yes 100mg 100 [...] Shortness of Breath sulfur 3-0 2023- No [id number] 5mL 5 mL, Unive rs hexafluorid 08-01- Intravenou i ty of e microsphr 17:00: 17:00 s, ONCE, 1 [place] (LUMASON) 00 :00 dose, On Medica l injection 5 Fri Branch mL 08/01/22 at 1100, Routine
managing member approving Restricted medication : TCKYLEE pantoprazol [...] Javier as mg 54 Starting Medical on [facility] Branch 07/31/22 at 2352, Until Discontinu ed, Routine, Seizures, Agitation, Anxiety, ETOH / Cocaine Withdrawl foLIC acid 2022-0 Yes 1mg 1 mg, Univer s (FOLATE) 13 Oral, ity of tablet 1 mg 05:45: DAILY, [place] 00 First dose Medical on [facility] 07/31/22 at 2345, Until Discontinu ed, Routine thiamine 2022-0 Yes 100mg 100 mg, Unive rs (VITAMIN 13 Oral, ity of B1) tablet 05:45: DAILY, [place] 100 mg 00 First dose Medical on [facility] 07/31/22 at 2345, Until Discontinu ed, Routine LORazepam 2022-0 2022- No .5mg 0.5 mg, Univ ers (ATIVAN) 08-01 Slow IV ity of injection 05:30: 05:29 Push, [place] 0.5 mg 00 :00 ONCE, 1 Medical dose, On Branch [facility] 07/31/22 at 2330, MICHAEL atorvastati 0 Yes 40mg 40 mg, Univ ers n (LIPITOR) 13 Oral, QHS, it y of tablet 40 03:00: First dose [place] mg 00 on [facility] 07/31/22 at Branch 2100, Until Discontinu ed, Routine diphenhydrA 2022-0 Yes 25mg 25 mg, Univ ers MINE 13 Oral, ity of (BENADRYL) 00:32: Q6HPRN, [place] tablet 25 02 Starting Medica l mg on [facility] 07/31/22 at 1832, Until Discontinu ed, Routine, Itching enoxaparin 2022-0 Yes 40mg 40 mg, Unive rs (LOVENOX) 07-31 Subcutaneo ity of injection 23:00: us, DAILY, [place] 40 mg 00 First dose Medical on [facility] 07/31/22 at 1700, Until Discontinu [...] :34 Starting Medi kwame tablet 1 on [facility] Branch tablet 07/31/22 at 1601, Until 08/02/22 [...] ity of succ 19:30: 18:54 Push, ONCE [place] (SOLU-MEDRO 00 :00 NOW, 1 Medica l L) dose, On Branch injection [facility] 125 mg 07/31/22 at 1330, MICHAEL ipratropium 2022- No 3mL 3 mL, [facility] ers -albuteroL 07-31 Inhalation it y of (DUONEB) 19:30: 18:48 , ONCE, 1 [place] as 0.5 mg-3 00 :00 dose, On Medical mg(2.5 mg [place] Branch base)/3 mL 07/31/22 at nebulizer 1330, MICHAEL solution 3 mL pantoprazol Yes 40mg Take 40 mg Univers e 40 mg EC 12 by mouth ity o f tablet 17:15: daily. [place] 40 Medical Branch MULTIVITAMI 0 Yes 1{tbl} Take 1 Tab Univers N ORAL 12 by mouth ity of 15:50: daily. [place] 57 Medical Branch loratadine Yes Take by [facility] ers (CLARITIN 12 mouth ity of LIQUI-GEL) 15:50: daily. [place] 10 mg 57 Medical capsule Branch ondansetron Yes 4mg Take 4 mg U nivers 4 mg tablet 12 by mouth ity of 15:50: every 8 [place] 57 (eight) Medical hours as Branch needed. omega-3 Yes 1g Take 1 g [facility] s fatty 12 by mouth ity of acids-vitam 15:21: daily. [facility] s in E (FISH 27 Medical OIL) 1,000 Branch mg capsule TAKE ONE No (1) 1-09 TABLET(S) 00:00: BY MOUTH 00 THREE TIMES A DAY NEEDED. Methylpredn 2021-07- No [id number] 4mg Take 1 Univers isolone 4 0-22 10-24 tablet ity of mg tablet 00:00: 04:59 through [place] 00 :00 enteral Medical tube in Branch the morning for 1 dose. Methylpredn 2021-07- No [id number] 4mg Take 1 Univers isolone 4 0-21 10-23 tablet ity of mg tablet 00:00: 04:59 through [place] 00 :00 enteral Medical tube every Branch 12 (twelve) hours for 2 doses. MULTIVITAMI 2021-07 Yes 1{tbl} Take 1 Tab Univers N ORAL 0-20 by mouth ity of 14:44: daily. [place] 48 Medical Branch omega-3 2021-07 Yes 1g Take 1 g Univer s fatty 0-20 by mouth ity of acids-vitam 14:44: daily. [place] in E (FISH 48 Medical OIL) 1,000 Branch mg capsule loratadine 2021-07 Yes Take by [facility] ers (CLARITIN 0-20 mouth ity of LIQUI-GEL) 14:44: daily. [place] 10 mg 48 Medical capsule Branch ondansetron 2021-07 Yes 4mg Take 4 mg U nivers (ZOFRAN) 4 0-20 by mouth ity o f mg tablet 14:44: every 8 [place] 48 (eight) Medical hours as Branch needed. pantoprazol 2021-07 Yes 40mg Take 40 mg Univers e 0-20 by mouth ity of (PROTONIX) 14:44: daily. [place] 40 mg EC 48 Medical tablet Branch DULoxetine 2021-07 Yes 30mg 30 mg, Unive rs (CYMBALTA) 0-20 Oral, ity of capsule 30 14:00: DAILY, [place] mg 00 First dose Medical on [facility] Branch 05/08/22 at 0900, Until Discontinu ed, Routine divalproex 2021-07 Yes 1000mg 1,000 mg, Univers (DEPAKOTE) 0-20 Oral, BID, ity of EC tablet 13:00: First dose [place] 1,000 mg 00 (after Medical last Branch modificati on) on [facility] 05/08/22 at 0800, Until Discontinu ed, Routine Methylpredn 2021-07 No 4mg 4 mg, Univ ers isolone 0-20 10-21 Oral, Q8H ity of (MEDROL) 08:50: 08:59 TAPER, 3 [place] tablet 4 mg 10 :00 doses, Medica l First dose Branch on [facility] 05/08/22 at 0400, Last dose on [facility] 05/08/22 at 2000, Routine acetaminoph 2021-07 Yes [...] Discontinu ed, Routine, Anxiety cyclobenzap 2021-07 Yes [id number] 5mg Take 1 Univers rine 5 mg 0-20 tablet by ity o f tablet 00:00: mouth in [place] [address] the [facility] morning Branch and 1 tablet at noon and 1 tablet in the evening. cyclobenzap 2021-07 Yes [id number] 5mg Take 1 Univers rine 5 mg 0-20 tablet by ity o f tablet 00:00: mouth in [place] [address] the [facility] morning Branch and 1 tablet at noon and 1 tablet in the evening. cyclobenzap 2021-07 Yes [id number] 5mg Take 1 Univers rine 5 mg 0-20 tablet by ity o f tablet 00:00: mouth in [address] morning Branch and 1 tablet at noon and 1 tablet in the evening. cyclobenzap 2021-07 Yes [id number] 5mg Take 1 Univers rine 5 mg 0-20 tablet by ity o f tablet 00:00: mouth in [address] morning Branch and 1 tablet at noon and 1 tablet in the evening. cyclobenzap 2021-07 Yes [id number] 5mg Take 1 Univers rine 5 mg 0-20 tablet by ity o f tablet 00:00: mouth in [address] morning Branch and 1 tablet at noon and 1 tablet in the evening. cyclobenzap 2021-07 Yes [id number] 5mg Take 1 Univers rine 5 mg 0-20 tablet by ity o f tablet 00:00: mouth in [place] 00 the Medical morning Branch and 1 tablet at noon and 1 tablet in the evening. cyclobenzap 2021-07 Yes [id number] 5mg Take 1 Univers rine 5 mg 0-20 tablet by ity o f tablet 00:00: mouth in [place] 00 the Medical morning Branch and 1 tablet at noon and 1 tablet in the evening. DULoxetine 2021-07- No [id number] 60mg Take 2 Univers (CYMBALTA) 0-20 11-20 capsules ity of 30 mg 00:00: 05:59 by mouth [place] capsule 00 :00 in the Medical morning Branch for 30 days. divalproex 2021-07- No [id number] 750mg Take 3 Univers (DEPAKOTE) 0-20 11-20 tablets by it y of 250 mg EC 00:00: 05:59 mouth [place] tablet 00 :00 every 8 Medical (eight) Branch hours for 30 days. LORazepam 1 2021-07- No [id number] 1mg Take 1 Univers mg tablet 0-20 [...] Indication s: acute pain Methylpredn 2021-07- No [id number] 4mg Take 1 Univers isolone 4 0-20 10-22 tablet by ity of mg tablet 00:00: 04:59 mouth [place] 00 :00 every 8 Medical (eight) Branch hours for 3 doses. divalproex 2021-07- No 750mg 750 mg, Un lois (DEPAKOTE) 0-19 10-20 Oral, BID, it y of EC tablet 01:00: 09:40 First dose [place] 750 mg 00 :23 on [facility] 05/06/22 Branch at 1999, Until Discontinu ed, [...] [place] tablet 500 00 :42 on [facility] 05/05/22 Branch at 2115, Until Discontinu ed, Routine LORazepam 2021-07 No 2mg 2 mg, Univer s (ATIVAN) 05-06 Oral, ity of tablet 2 mg 01:30: 01:03 ONCE, 1 [place] 00 :00 dose, On [facility] 05/05/22 at 2030, Routine levETIRAcet 2021-07 No 1000mg 1,000 mg, Univers am (KEPPRA) 05-06 Oral, BID, i ty of tablet 01:00: 04:48 First dose [place] 1,000 mg 00 :06 on [facility] 05/05/22 Branch at 2000, Until Discontinu ed, Routine enoxaparin 2021-07 Yes 40mg 40 mg, Unive rs (LOVENOX) 018 Subcutaneo ity of injection 00:15: us, Q24H, [place] as 40 mg 00 First dose Medical on [facility] 05/05/22 at 1915, Until Discontinu ed, Routine levETIRAcet 2021-07 No 1000mg 1,000 mg, Univers am (KEPPRA) 005-05 IV ity of in NACL 19:45: 20:05 Piggyback, [place] as (ISO-OS) 00 :00 ONCE, 1 Medical 1,000 dose, On Branch mg/100 mL [facility] RTU 05/05/22 at 1445, Administer over 15 Minutes, 100 mL clonazePAM 2021-07 Yes .5mg 0.5 mg, Univ ers (KLONOPIN) 0-17 Oral, BID, ity of tablet 0.5 19:30: First dose [place] mg 00 on [facility] 05/05/22 Branch at 1430, Until Discontinu ed, Routine ibuprofen 2021-07 Yes 600mg 600 mg, Univ ers (IBU) 0-17 Oral, TID ity of tablet 600 19:30: MEALS, [place] mg 00 First dose Medical on [facility] 05/05/22 at 1430, Until Discontinu ed, Routine gabapentin 2021-07 Yes 300mg 300 mg, Uni vers (NEURONTIN) 0-17 Oral, TID, it y of capsule 300 19:30: First dose [place] mg 00 on [facility] 05/05/22 Branch at 1430, Until Discontinu ed, Routine cyclobenzap 2021-07 Yes 5mg 5 mg, Unive rs rine 0-17 Oral, TID, ity of (FLEXERIL) 19:30: First dose [place] tablet 5 mg 00 on [facility] 05/05/22 Branch at 1430, Until Discontinu ed, Routine acetaminoph 2021-07 Yes 1000mg 1,000 mg, Univers en 0-17 Oral, Q8H, ity of (TYLENOL) 19:30: First dose [place] tablet 00 on [facility] 1,000 mg 05/05/22 Branch at 1430, Until Discontinu ed, Routine pantoprazol 2021-07 Yes 40mg 40 mg, Univ ers e 0-17 Oral, ity of (PROTONIX) 14:00: DAILY, [place] EC tablet 00 First dose Medi kwame 40 mg on [facility] 05/05/22 at 0900, Until Discontinu ed, Routine docusate 2021-07 Yes 100mg 100 mg, Unive rs (COLACE) 0-17 Oral, ity of capsule 100 14:00: DAILY, [place] mg 00 First dose Medical on [facility] 05/05/22 at 0900, Until Discontinu ed, Routine HYDROcodone 2021-07- No 1{tbl} 1 tablet, Univers -acetaminop 0-17 10-17 Oral, ity of hen (NORCO) 10:32: 19:18 Q6HPRN, [place] 10-325 mg 02 :52 Starting Medica l tablet 1 on [facility] tablet 05/05/22 at 0532, Until Thu05/05/22 at 1418, Routine, Pain (scale 7-10) ondansetron 2021-07 Yes 4mg 4 mg, Slow Univers (ZOFRAN 0-17 IV Push, ity of (PF)) 06:49: Q6HPRN, [place] injection 4 57 Starting Medi kwame mg on [facility] Branch 05/05/22 at 0149, Until Discontinu ed, Routine, Nausea and Vomiting (N/V) HYDROcodone 2021-07- No 1{tbl} 1 tablet, Univers -acetaminop 0-17 10-17 Oral, ity of hen (NORCO 06:49: 10:32 Q6HPRN, [place] as 5) 5-325 mg 41 :14 Starting Medi kwame tablet 1 on [facility] tablet 05/05/22 at 0149, Until Thu05/05/22 at 0532, Routine, Pain (scale 7-10) acetaminoph 2021-07- No 325mg 325 mg, U nivers en 0-17 10- Oral, ity of (TYLENOL) 06:49: 19:18 Q4HPRN[place] 325 39 :52 Starting Medic al mg on [facility] 05/05/22 at 0149, Until Thu05/05/22 at 1418, Routine, Pain (scale 4-6) ondansetron 2021-07- No 4mg 4 mg, Univ ers (ZOFRAN) 0-17 10-17 Oral, ity of tablet 4 mg 04:00: 03:26 ONCE, 1 [place] :[place] dose, On [facility] 05/04/22 at 2300, Routine morpHINE (2 2021-07- No 2mg 2 mg, Slow Univers mg/mL) 0-17 10-17 IV Push, ity of injection 2 04:00: 03:26 ONCE, 1 [place] mg 00 :00 dose, On [facility] 05/04/22 at 2300, Routine aspirin 81 0 Yes [id number] 81mg Take 1 U nivers mg chewable 9-28 tablet by ity of tablet 00:00: mouth in [place] 00 the Medical morning. Branch aspirin 81 2021-0 Yes [id number] 81mg Take 1 U nivers mg chewable 9-28 tablet by ity of tablet 00:00: mouth in [place] 00 the Medical morning. Branch aspirin 81 0 Yes [id number] 81mg Take 1 U nivers mg chewable 9-28 tablet by ity of tablet 00:00: mouth in [place] 00 the Medical morning. Branch aspirin 81 0 Yes [id number] 81mg Take 1 U nivers mg chewable 9-28 tablet by ity of tablet 00:00: mouth in [place] 00 the Medical morning. Branch aspirin 81 0 Yes [id number] 81mg Take 1 U nivers mg chewable 9-28 tablet by ity of tablet 00:00: mouth in [place] 00 the Medical morning. [place] aspirin 81 0 Yes [id number] 81mg Take 1 U nivers mg chewable 9-28 tablet by ity of tablet 00:00: mouth in [place] 00 the Medical morning. Branch aspirin 81 0 Yes [id number] 81mg Take 1 U nivers mg chewable 9-28 tablet by ity of tablet 00:00: mouth in [place] 00 the Medical morning. [place] aspirin 81 0 Yes [id number] 81mg Take 1 U nivers mg chewable 9-28 tablet by ity of tablet 00:00: mouth in [place] 00 the Medical morning. [place] MULTIVITAMI Yes 1{tbl} Take 1 Tab Univers N ORAL 9-27 by mouth ity of 17:39: daily. [place] 14 [facility] Branch omega-3 Yes 1g Take 1 g Univer s fatty 9- by mouth ity of acids-vitam 17:39: daily. [facility] in [place] (FISH 14 Medical OIL) 1,000 Branch mg capsule loratadine Yes Take by Univ ers (CLARITIN 9- mouth ity of LIQUI-GEL) 17:39: daily. [place] 10 14 Medical capsule Branch ondansetron Yes [...] (after Medical last Branch modificati on) on [facility] 04/14/22 at 2145, Until Discontinu ed, Routine ketorolac 2021- No 15mg 15 mg, Unive rs (TORADOL) 04-15 Slow IV ity of injection 02:13: 02:22 Push, [place] 15 mg 00 :00 ONCE, 1 Medical dose, On Branch 04/14/22 at 2115, Routine levETIRAcet Yes [id number] 1000mg Take 1 Univers am 1,000 mg 9-27 tablet by ity of tablet 00:00: mouth in [place] 00 the Medical morning Branch and 1 tablet in the evening. atorvastati Yes [id number] 40mg Take 1 Univers n 40 mg 9-27 tablet by ity of tablet 00:00: mouth at [place] 00 bedtime. Medical Branch atorvastati Yes [id number] 40mg Take 1 Univers n 40 mg 9-27 tablet by ity of tablet 00:00: mouth at [place] 00 bedtime. Medical Branch atorvastati Yes [id number] 40mg Take 1 Univers n 40 mg 9-27 tablet by ity of tablet 00:00: mouth at [place] 00 bedtime. Medical Branch atorvastati Yes [id number] 40mg Take 1 Univers n 40 mg 9-27 tablet by ity of tablet 00:00: mouth at [place] 00 bedtime. Medical Branch atorvastati Yes [id number] 40mg Take 1 Univers n 40 mg 9-27 tablet by ity of tablet 00:00: mouth at [place] 00 bedtime. Medical Branch atorvastati Yes [id number] 40mg Take 1 Univers n 40 mg 9-27 tablet by ity of tablet 00:00: mouth at [place] [address] bedtime. Medical Branch atorvastati Yes [id number] 40mg Take 1 Univers n 40 mg 9-27 tablet by ity of tablet 00:00: mouth at [place] [address] bedtime. Medical Branch atorvastati Yes [id number] 40mg Take 1 Univers n 40 mg 9-27 tablet by ity of tablet 00:00: mouth at [place] [address] bedtime. Medical Branch levETIRAcet 2021- No [id number] 1000mg Take 1 Univers am 1,000 mg 9-27 10-20 tablet by it y of tablet 00:00: 00:00 mouth in [place] 00 :00 the Medical morning Branch and 1 tablet in the evening. lidocaine 5 2021- No [id number] 1{patch Apply 1 Univers % (700 9-27 [...] 12 Medical patch 1 Hours, Branch Patch [id number], Starting on Thu04/14/22 at 1645, Until Discontinu [...] 7-10), Pain (scale 4-6) sulfur 2021-2021- No [id number] 5mL 5 mL, Univ ers hexafluorid 04-14 Intravenou i ty of e microsphr 16:45: 16:45 s, ONCE, 1 [place] (LUMASON) 00 :00 dose, On Medica l injection 5 Mon Branch mL 04/14/22 at 1145, Routine
managing member approving Restricted medication : [employer] clopidogreL 0 Yes 75mg 75 mg, Univ ers (PLAVIX) 75 04-14 Oral, ity of mg tablet 14:00: DAILY, [place] 75 mg 00 First dose Medical on [facility] 04/14/22 at 0900, Until Discontinu ed, Routine pantoprazol Yes 40mg 40 mg, Univ ers e 04-14 Oral, ity of (PROTONIX) 14:00: DAILY, [place] EC tablet 00 First dose Medi kwame 40 mg on [facility] 04/14/22 at 0900, Until Discontinu ed, Routine atorvastati Yes 40mg 40 mg, Univ ers n (LIPITOR) 04-14 Oral, QHS, it y of tablet 40 02:00: First dose [place] mg 00 on [facility] 04/13/22 at Branch 2100, Until Discontinu ed, Routine LORazepam 2021- No 1mg 1 mg, Univer s (ATIVAN) 04-14 Oral, ity of tablet 1 mg 01:30: 01:45 ONCE, 1 [place] 00 :00 dose, On Medical [facility] 04/13/22 at 2030, Routine methocarbam Yes 500mg 500 mg, Un lois oL 04-14 Oral, QID, ity of (ROBAXIN) 01:00: First dose [place] tablet 500 00 on [facility] mg 04/13/22 at Branch 2000, Until Discontinu ed, Routine heparin Yes 5000U 5,000 Univers (porcine) 04-14 Units, ity of injection 01:00: Subcutaneo [place] 5,000 Units 00 us, Q12H, Med ical First dose Branch on [place] 04/13/22 at 2000, Until Discontinu ed, Routine acetaminoph 2021- No 650mg 650 mg, U nivers en 04-14 Oral, ity of (TYLENOL) 00:23: 21:29 Q6HPRN, [place] 650 25 :42 Starting Medic al mg on [facility] 04/13/22 at 1923, Until [facility] 04/14/22 at 1629, Routine, Pain (scale 1-3), Pain (scale 4-6), Temp > 38.5 C, Temp > 37.5 C lidocaine 2021- No 1{patch 1 Patch, Univers (LIDODERM) 04-14 } Topical, ity of 5 % (700 00:22: 13:51 Administer [place] mg/patch) 00 :00 over 12 Medical patch 1 Hours, Branch Patch ONCE, 1 dose, On [place] 04/13/22 at 1930, Routine FENTanyl PF 2021- No 50ug 50 mcg, Un lois (SUBLIMAZE 04-13 Slow IV ity o f (PF)) 20:30: 19:22 Push, [place] injection 00 :00 ONCE, 1 Medical 50 mcg dose, On [facility] 04/13/22 at 1530, Routine aspirin 2021- No 650mg 650 mg, Unive rs chewable 04-13 Oral, ity of tablet 650 20:15: 20:15 ONCE, 1 [place] mg 00 :00 dose, On Medical [facility] 04/13/22 at 1515, Routine clopidogreL 2021- No 300mg 300 mg, U nivers (PLAVIX) 04-13 Oral, ity of 300 mg 20:00: 19:15 ONCE, 1 [place] tablet 300 00 :00 dose, On Medic al mg [facility] 04/13/22 at 1500, Routine ondansetron 2021- No 4mg 4 mg, Slow Univers (ZOFRAN 04-13 IV Push, ity of (PF)) 19:30: 19:22 ONCE, 1 [place] injection 4 00 :00 dose, On Medi kwame mg [facility] 04/13/22 at 1430, MICHAEL iopamidol 2021- No [id number] 100mL 100 mL, Univers (ISOVUE 04-13 Intravenou ity o f 370-500 mL) 18:31: 18:32 s, ONCE, 1 [place] injection 00 :00 dose, On Medica l 100 mL [facility] 04/13/22 at 1345, Routine NaCl 0.9% Yes [...] ity of infusion 21:30: 21:56 1,000 mL, [place] 1,000 mL 00 :00 IV Medical [...] Sat Medica l mg(2.5 mg 03/16/21 at [facility] base)/3 mL 2100, MICHAEL nebulizer solution [...] nebulizer solution 3 mL levoFLOXaci 2020- No [id number] 500mg Take 1 Univers n 500 mg 03-17 tablet by ity o f tablet 00:00: 04:59 mouth [place] 00 :00 daily for Medical 6 days. Branch levoFLOXaci 2020- No [id number] 500mg Take 1 Univers n 500 mg 03-17 tablet by ity o f tablet 00:00: 04:59 mouth [place] 00 :00 daily for Medical 6 days. Branch levoFLOXaci 2020-0 2020- No [id number] 500mg Take 1 Univers n 500 mg 03-17 tablet by ity o f tablet 00:00: 04:59 mouth [place] 00 :00 daily for Medical 6 days. Branch levoFLOXaci 2020- No [id number] 500mg Take 1 Univers n 500 mg 03-17 tablet by ity o f tablet 00:00: 04:59 mouth [place] 00 :00 daily for Medical 6 days. Branch predniSONE 2020- No [id number] 30mg Take 3 Univers 10 mg 03-17 tablets by ity of tablet 00:00: 04:59 mouth [place] 00 :00 daily for Medical 4 days. Branch predniSONE No [id number] 30mg Take 3 Univers 10 mg 03-17 tablets by ity of tablet 00:00: 04:59 mouth [place] 00 :00 daily for Medical 4 days. Branch predniSONE 2020- No [id number] 30mg Take 3 Univers 10 mg 03-17 tablets by ity of tablet 00:00: 04:59 mouth [place] 00 :00 daily for Medical 4 days. Branch predniSONE No [id number] 30mg Take 3 Univers 10 mg 03-17 tablets by ity of tablet 00:00: 04:59 mouth [place] 00 :00 daily for Medical 4 days. Branch albuterol 2020- No [id number] 4{puff} 4 Puff, Univers (VENTOLIN) 03-15 Inhalation it y of inhaler 4 01:45: 00:44 , ONCE, 1 [place] Puff 00 :00 dose, [facility] Medical 03/14/21 at [place] 2044, Routine dexamethaso No [id number] 10mg 10 mg, Univers ne 03-15- Intramuscu ity of (DECADRON) 01:45: 00:45 lar, ONCE, [place] injection 00 :00 1 dose, Medical 10 mg [facility] 03/14/21 at 2044, Routine albuterol Yes [id number] 2.5mg Inhale 3 Univers 2.5 mg /3 - mL every 4 ity of mL (0.083 00:00: (four) [place] %) 00 hours as Medical nebulizer needed for Bran ch solution Wheezing or Shortness of Breath. albuterol 2020-0 Yes [id number] 2.5mg Inhale 3 Univers 2.5 mg /3 8-27 mL every 4 ity of mL (0.083 00:00: (four) [place] %) 00 hours as Medical nebulizer needed for Bran ch solution Wheezing or Shortness of Breath. albuterol 2020-0 Yes [id number] 2.5mg Inhale 3 Univers 2.5 mg /3 8-27 mL every 4 ity of mL (0.083 00:00: (four) [place] %) 00 hours as Medical nebulizer needed for Bran ch solution Wheezing or Shortness of Breath. albuterol 2020-0 Yes [id number] 2.5mg Inhale 3 Univers 2.5 mg /3 8-27 mL every 4 ity of mL (0.083 00:00: (four) [place] %) 00 hours as Medical nebulizer needed for Bran ch solution Wheezing or Shortness of Breath. albuterol 2020-0 Yes [id number] 2.5mg Inhale 3 Univers 2.5 mg /3 8-27 mL every 4 ity of mL (0.083 00:00: (four) [place] %) 00 hours as Medical nebulizer needed for Bran ch solution Wheezing or Shortness of Breath. albuterol 2020-0 Yes [id number] 2.5mg Inhale 3 Univers 2.5 mg /3 8-27 mL every 4 ity of mL (0.083 00:00: (four) [place] %) 00 hours as Medical nebulizer needed for Bran ch solution Wheezing or Shortness of Breath. albuterol 2020-0 Yes [id number] 2.5mg Inhale 3 Univers 2.5 mg /3 8-27 mL every 4 ity of mL (0.083 00:00: (four) [place] %) 00 hours as Medical nebulizer needed for Bran ch solution Wheezing or Shortness of Breath. albuterol 2020-0 Yes [id number] 2.5mg Inhale 3 Univers 2.5 mg /3 8-27 mL every 4 ity of mL (0.083 00:00: (four) [place] %) 00 hours as Medical nebulizer needed for Bran ch solution Wheezing or Shortness of Breath. albuterol 2020-0 Yes [id number] 2.5mg Inhale 3 Univers 2.5 mg /3 8-27 mL every 4 ity of mL (0.083 00:00: ([facility]) [place] %) 00 hours as Medical nebulizer needed for Bran ch solution Wheezing or Shortness of Breath. albuterol 2020-0 Yes [id number] 2.5mg Inhale 3 Univers 2.5 mg /3 8-27 mL every 4 ity of mL (0.083 00:00: ([facility] [place] %) 00 hours as Medical nebulizer needed for Bran ch solution Wheezing or Shortness of Breath. albuterol 2020-0 Yes [id number] 2.5mg Inhale 3 Univers 2.5 mg /3 8-27 mL every 4 ity of mL (0.083 00:00: ([facility] [place] %) 00 hours as Medical nebulizer needed for Bran ch solution Wheezing or Shortness of Breath. albuterol 2020-0 Yes [id number] 2.5mg Inhale 3 Univers 2.5 mg /3 8-27 mL every 4 ity of mL (0.083 00:00: ([facility] [place] %) 00 hours as Medical nebulizer needed for Bran ch solution Wheezing or Shortness of Breath. albuterol 2020-0 Yes [id number] 2.5mg Inhale 3 Univers 2.5 mg /3 8-27 mL every 4 ity of mL (0.083 00:00: ([facility] [place] %) 00 hours as Medical nebulizer needed for Bran ch solution Wheezing or Shortness of Breath. albuterol 2020-0 Yes [id number] 2.5mg Inhale 3 Univers 2.5 mg /3 8-27 mL every 4 ity of mL (0.083 00:00: (four) [place] %) 00 hours as Medical nebulizer needed for Bran ch solution Wheezing or Shortness of Breath. albuterol 2020-0 Yes [id number] 2.5mg Inhale 3 Univers 2.5 mg /3 8-27 mL every 4 ity of mL (0.083 00:00: (four) [place] %) 00 hours as Medical nebulizer needed for Bran ch solution Wheezing or Shortness of Breath. albuterol 2020-0 Yes [id number] 2.5mg Inhale 3 Univers 2.5 mg /3 8-27 mL every 4 ity of mL (0.083 00:00: (four) [place] %) 00 hours as Medical nebulizer needed for Bran ch solution Wheezing or Shortness of Breath. albuterol 0 Yes [id number] 2.5mg Inhale 3 Univers 2.5 mg /3 8-27 mL every 4 ity of mL (0.083 00:00: (four) [place] %) 00 hours as Medical nebulizer needed for Bran ch solution Wheezing or Shortness of Breath. albuterol 0 Yes [id number] 2.5mg Inhale 3 Univers 2.5 mg /3 [...] (KEPPRA 8-03 mouth. ity of ORAL) 19:45: [address] levetiracet Yes Take by Uni vers am (KEPPRA 8-03 mouth. ity of ORAL) 19:45: [address] levetiracet 0 Yes Take by Uni vers am (KEPPRA 8-03 mouth. ity of ORAL) 19:45: [address] levetiracet 0 Yes Take by Uni vers am (KEPPRA 8-03 mouth. ity of ORAL) 19:45: [address] levetiracet 0 Yes Take by Uni vers am (KEPPRA 8-03 mouth. ity of ORAL) 19:45: [address] levetiracet 0 Yes Take by Uni [...] l NaCl 0.9% 02/19/21 at [facility] h (NS) 50 mL 1415, [...] at Branch 1200, MICHAEL iopamidol 2020- No [id number] 100mL 100 mL, Univers (ISOVUE 02-19 Intravenou ity o f 370-500 mL) 16:35: 16:45 s, ONCE, 1 [place] injection 00 :00 dose, Tue Medic al 100 mL 02/19/21 at Branch 1145, Routine levetiracet 2020-0 Yes Take by Uni vers am (KEPPRA 8-03 mouth. ity of ORAL) 14:45: [address] levetiracet 2020-0 Yes Take by Uni vers am (KEPPRA 8-03 mouth. ity of ORAL) 14:45: [address] levetiracet 2020-0 Yes Take by Uni vers am (KEPPRA 8-03 mouth. ity of ORAL) 14:45: [address] levetiracet 2020-0 Yes Take by Uni vers am (KEPPRA 8-03 mouth. ity of ORAL) 14:45: [address] levetiracet 2020-0 Yes Take by Uni vers am (KEPPRA 8-03 mouth. ity of ORAL) 14:45: [address] proMETHazin 2020-0 Yes [id number] 25mg Take 1 Univers e 25 mg 8-03 tablet by ity of tablet 00:00: mouth [place] 00 every 6 Medical (six) Branch hours as needed for Nausea and Vomiting (N/V). dicyclomine 2020-0 Yes [id number] 20mg Take 1 Univers 20 mg 8-03 tablet by ity of tablet 00:00: mouth 4 [place] 00 (four) Medical times Branch daily as needed for Abdominal pain. proMETHazin 2020-0 Yes [id number] 25mg Take 1 Univers e 25 mg 8-03 tablet by ity of tablet 00:00: mouth [place] 00 every 6 Medical (six) Branch hours as needed for Nausea and Vomiting (N/V). dicyclomine 2020-0 Yes [id number] 20mg Take 1 Univers 20 mg 8-03 tablet by ity of tablet 00:00: mouth 4 [place] 00 (four) Medical times Branch daily as needed for Abdominal pain. proMETHazin 202-0 Yes [id number] 25mg Take 1 Univers e 25 mg 8-03 tablet by ity of tablet 00:00: mouth [place] 00 every 6 Medical (six) Branch hours as needed for Nausea and Vomiting (N/V). dicyclomine 2021-0 Yes [id number] 20mg Take 1 Univers 20 mg 8-03 tablet by ity of tablet 00:00: mouth 4 [place] 00 (four) Medical times Branch daily as needed for Abdominal pain. proMETHazin 1-0 Yes [id number] 25mg Take 1 Univers e 25 mg 8-03 tablet by ity of tablet 00:00: mouth [place] 00 every 6 Medical (six) Branch hours as needed for Nausea and Vomiting (N/V). dicyclomine 2020-0 Yes [id number] 20mg Take 1 Univers 20 mg 8-03 tablet by ity of tablet 00:00: mouth 4 00 (four) Medical times Branch daily as needed for Abdominal pain. proMETHazin 2020-0 Yes [id number] 25mg Take 1 Univers e 25 mg 8-03 tablet by ity of tablet 00:00: mouth [place] 00 every 6 Medical (six) Branch hours as needed for Nausea and Vomiting (N/V). dicyclomine 2020-0 Yes [id number] 20mg Take 1 Univers 20 mg 8-03 tablet by ity of tablet 00:00: mouth (four) Medical times Branch daily as needed for Abdominal pain. proMETHazin 2020-0 Yes [id number] 25mg Take 1 Univers e 25 mg 8-03 tablet by ity of tablet 00:00: mouth [place] 00 every 6 Medical (six) Branch hours as needed for Nausea and Vomiting (N/V). dicyclomine 2020-0 Yes [id number] 20mg Take 1 Univers 20 mg 8-03 tablet by ity of tablet 00:00: mouth (four) Medical times Branch daily as needed for Abdominal pain. proMETHazin 2020-0 Yes [id number] 25mg Take 1 Univers e 25 mg 8-03 tablet by ity of tablet 00:00: mouth [place] 00 every 6 Medical (six) Branch hours as needed for Nausea and Vomiting (N/V). dicyclomine 202-0 Yes [id number] 20mg Take 1 Univers 20 mg 8-03 tablet by ity of tablet 00:00: mouth 00 (four) Medical times Branch daily as needed for Abdominal pain. proMETHazin 2020-0 Yes [id number] 25mg Take 1 Univers e 25 mg 8-03 tablet by ity of tablet 00:00: mouth [place] 00 every 6 Medical (six) Branch hours as needed for Nausea and Vomiting (N/V). dicyclomine 2021-0 Yes [id number] 20mg Take 1 Univers 20 mg 8-03 tablet by ity of tablet 00:00: mouth 4 (four) Medical times Branch daily as needed for Abdominal pain. proMETHazin 2020-0 Yes [id number] 25mg Take 1 Univers e 25 mg 8-03 tablet by ity of tablet 00:00: mouth [place] 00 every 6 Medical (six) Branch hours as needed for Nausea and Vomiting (N/V). dicyclomine 2020-0 Yes [id number] 20mg Take 1 Univers 20 mg 8-03 tablet by ity of tablet 00:00: mouth (four) Medical times Branch daily as needed for Abdominal pain. proMETHazin 2020-0 Yes [id number] 25mg Take 1 Univers e 25 mg 8-03 tablet by ity of tablet 00:00: mouth [place] 00 every 6 Medical (six) Branch hours as needed for Nausea and Vomiting (N/V). dicyclomine 2020-0 Yes [id number] 20mg Take 1 Univers 20 mg 8-03 tablet by ity of tablet 00:00: mouth (four) Medical times Branch daily as needed for Abdominal pain. proMETHazin 2020-0 Yes [id number] 25mg Take 1 Univers e 25 mg 8-03 tablet by ity of tablet 00:00: mouth [place] 00 every 6 Medical (six) Branch hours as needed for Nausea and Vomiting (N/V). dicyclomine 2020-0 Yes [id number] 20mg Take 1 Univers 20 mg 8-03 tablet by ity of tablet 00:00: mouth (four) Medical times Branch daily as needed for Abdominal pain. proMETHazin 2020-0 Yes [id number] 25mg Take 1 Univers e 25 mg 8-03 tablet by ity of tablet 00:00: mouth [place] 00 every 6 Medical (six) Branch hours as needed for Nausea and Vomiting (N/V). dicyclomine 2020-0 Yes [id number] 20mg Take 1 Univers 20 mg 8-03 tablet by ity of tablet 00:00: mouth 4 (four) Medical times Branch daily as needed for Abdominal pain. proMETHazin 2020-0 Yes [id number] 25mg Take 1 Univers e 25 mg 8-03 tablet by ity of tablet 00:00: mouth [place] 00 every 6 Medical (six) Branch hours as needed for Nausea and Vomiting (N/V). dicyclomine 2021-0 Yes [id number] 20mg Take 1 Univers 20 mg 8-03 tablet by ity of tablet 00:00: mouth (four) Medical times Branch daily as needed for Abdominal pain. proMETHazin 2020-0 Yes [id number] 25mg Take 1 Univers e 25 mg 8-03 tablet by ity of tablet 00:00: mouth 00 every 6 Medical (six) Branch hours as needed for Nausea and Vomiting (N/V). dicyclomine 2020-0 Yes [id number] 20mg Take 1 Univers 20 mg 8-03 tablet by ity of tablet 00:00: mouth (four) Medical times Branch daily as needed for Abdominal pain. proMETHazin 2020-0 Yes [id number] 25mg Take 1 Univers e 25 mg 8-03 tablet by ity of tablet 00:00: mouth 00 every 6 Medical (six) Branch hours as needed for Nausea and Vomiting (N/V). dicyclomine 2020-0 Yes [id number] 20mg Take 1 Univers 20 mg 8-03 tablet by ity of tablet 00:00: mouth (four) Medical times Branch daily as needed for Abdominal pain. proMETHazin 2020-0 Yes [id number] 25mg Take 1 Univers e 25 mg 8-03 tablet by ity of tablet 00:00: mouth 00 every 6 Medical (six) Branch hours as needed for Nausea and Vomiting (N/V). dicyclomine 2020-0 Yes [id number] 20mg Take 1 Univers 20 mg 8-03 tablet by ity of tablet 00:00: mouth (four) Medical times Branch daily as needed for Abdominal pain. proMETHazin 2020-0 Yes [id number] 25mg Take 1 Univers e 25 mg 8-03 tablet by ity of tablet 00:00: mouth [place] 00 every 6 Medical (six) Branch hours as needed for Nausea and Vomiting (N/V). dicyclomine 2021-0 Yes [id number] 20mg Take 1 Univers 20 mg 8-03 tablet by ity of tablet 00:00: mouth (four) Medical times Branch daily as needed for Abdominal pain. proMETHazin 2021-0 Yes [id number] 25mg Take 1 Univers e 25 mg 8-03 tablet by ity of tablet 00:00: mouth [place] 00 every 6 Medical (six) Branch hours as needed for Nausea and Vomiting (N/V). dicyclomine Yes [id number] 20mg Take 1 Univers 20 mg 8-03 tablet by ity of tablet 00:00: mouth 4 00 (four) Medical times Branch daily as needed for Abdominal pain. proMETHazin Yes [id number] 25mg Take 1 Univers e 25 mg 8-03 tablet by ity of tablet 00:00: mouth [place] 00 every 6 Medical (six) Branch hours as needed for Nausea and Vomiting (N/V). dicyclomine Yes [id number] 20mg Take 1 Univers 20 mg 8-03 [...] o f mg tablet 20:05: every 8 [place] [address] (eight) Medical hours as Branch needed. pantoprazol [...] o f mg tablet 20:05: every 8 [place] [address] (eight) Medical hours as Branch needed. pantoprazol 2018-0 Yes 40mg Take 40 mg Univers e 7-24 by mouth ity of (PROTONIX) 20:05: daily. [place] 40 mg EC Medical tablet Branch ondansetron 2018-0 Yes 4mg Take 4 mg U nivers (ZOFRAN) 4 7-24 by mouth ity o f mg tablet 20:05: every 8 [place] [address] (eight) Medical hours as Branch needed. pantoprazol 2018-0 Yes 40mg Take 40 mg Univers e 7-24 by mouth ity of (PROTONIX) 20:05: daily. [place] 40 mg EC Medical tablet Branch ondansetron 2018-0 Yes 4mg Take 4 mg U nivers (ZOFRAN) 4 7-24 by mouth ity o f mg tablet 20:05: every 8 [place] [address] (eight) Medical hours as Branch needed. pantoprazol 2018-0 Yes 40mg Take 40 mg Univers e 7-24 by mouth ity of (PROTONIX) 20:05: daily. [place] 40 mg EC 01 Medical tablet Branch lisinopril- [id number] Yes 1{tbl} Take [...] 7-24 by mouth ity of 19:58: daily. [place] [address] Medical Branch loratadine Yes Take by Univ ers (CLARITIN 7-24 mouth ity of LIQUI-GEL) 19:58: daily. [place] 10 mg 14 Medical capsule Branch MULTIVITAMI Yes 1{tbl} Take 1 Tab Univers N ORAL 7-24 by mouth ity of 19:58: daily. [place] [address] Medical Branch loratadine Yes Take by Univ ers (CLARITIN 7-24 mouth ity of LIQUI-GEL) 19:58: daily. [place] 10 mg 14 Medical capsule Branch MULTIVITAMI Yes 1{tbl} Take 1 Tab Univers N ORAL 7-24 by mouth ity of 19:58: daily. [place] [address] Medical Branch loratadine Yes Take by Univ ers (CLARITIN 7-24 mouth ity of LIQUI-GEL) 19:58: daily. [place] 10 mg 14 Medical capsule Branch MULTIVITAMI Yes 1{tbl} Take 1 Tab Univers N ORAL 7-24 by mouth ity of 19:58: daily. [place] [address] Medical Branch loratadine 0 Yes Take by Univ ers (CLARITIN 7-24 mouth ity of LIQUI-GEL) 19:58: daily. [place] 10 mg 14 Medical capsule Branch MULTIVITAMI Yes 1{tbl} Take 1 Tab Univers N ORAL 7-24 by mouth ity of 19:58: daily. [place] [address] Medical Branch loratadine Yes Take by Univ ers (CLARITIN 7-24 mouth ity of LIQUI-GEL) 19:58: daily. [place] 10 mg 14 Medical capsule Branch MULTIVITAMI 2018-0 Yes 1{tbl} Take 1 Tab Univers N ORAL 7-24 by mouth ity of 19:58: daily. [place] 14 Medical Branch loratadine 2018-0 Yes Take by [facility] ers (CLARITIN 7-24 mouth ity of LIQUI-GEL) 19:58: daily. [place] 10 mg 14 Medical capsule Branch MULTIVITAMI 2018-0 Yes 1{tbl} Take 1 Tab Univers N ORAL 7-24 by mouth ity of 19:58: daily. [place] [address] Medical Branch loratadine 2018-0 Yes Take by [facility] ers (CLARITIN 7-24 mouth ity [...] 7-24 by mouth ity of 14:58: daily. [place] [address] Medical Branch loratadine Yes Take by Univ ers (CLARITIN 7-24 mouth ity of LIQUI-GEL) 14:58: daily. [place] 10 mg 14 Medical capsule Branch MULTIVITAMI Yes 1{tbl} Take 1 Tab Univers N ORAL 7-24 by mouth ity of 14:58: daily. [place] [address] Medical Branch loratadine Yes Take by Univ ers (CLARITIN 7-24 mouth ity of LIQUI-GEL) 14:58: daily. [place] 10 mg 14 Medical capsule Branch MULTIVITAMI Yes 1{tbl} Take 1 Tab Univers N ORAL 7-24 by mouth ity of 14:58: daily. [place] [address] Medical Branch loratadine Yes Take by Univ ers (CLARITIN 7-24 mouth ity of LIQUI-GEL) 14:58: daily. [place] 10 mg 14 Medical capsule Branch MULTIVITAMI Yes 1{tbl} Take 1 Tab Univers N ORAL 7-24 by mouth ity of 14:58: daily. [place] [id number] Medical Branch loratadine Yes Take by Univ ers (CLARITIN 7-24 mouth ity of LIQUI-GEL) 14:58: daily. [place] 10 mg 14 Medical capsule Branch MULTIVITAMI Yes 1{tbl} Take 1 Tab Univers N ORAL 7-24 by mouth ity of 14:58: daily. [place] [id number] Medical Branch loratadine Yes Take by Univ ers (CLARITIN 7-24 mouth ity of LIQUI-GEL) 14:58: daily. [place] 10 mg 14 Medical capsule Branch proMETHazin [...] Filled Immunization Date Status Comments [facility] e Immunization Name Name SARS-COV-2 COVID-19 [...] Unive rsity of PFIZER VACCINE 00:00:00 [place] [facility] kwame Branch SARS-COV-2 COVID-19 2021-05-24 Completed Unive rsity of PFIZER VACCINE 00:00:00 [facility] kwame Branch SARS-COV-2 COVID-19 2021-05-24 Completed Unive rsity of PFIZER VACCINE 00:00:00 [facility] kwame Branch SARS-COV-2 COVID-19 2021-05-24 Completed Unive rsity of PFIZER VACCINE 00:00:00 [place] [facility] Branch SARS-COV-2 COVID-19 2021-05-24 Completed Unive rsity of PFIZER VACCINE 00:00:00 [facility] kwame Branch SARS-COV-2 COVID-19 2021-05-24 Completed Unive rsity of PFIZER VACCINE 00:00:00 [facility] kwame Branch SARS-COV-2 COVID-19 2021-05-24 Completed Unive rsity of PFIZER VACCINE 00:00:00 [facility] kwame Branch SARS-COV-2 COVID-19 2021-05-24 Completed Unive rsity of PFIZER VACCINE 00:00:00 [place] [facility] Branch SARS-COV-2 COVID-19 2021-05-24 Completed Unive rsity of PFIZER VACCINE 00:00:00 [facility] Branch SARS-COV-2 COVID-19 2021-05-24 Completed Unive rsity of PFIZER VACCINE 00:00:00 [place] [facility] Branch SARS-COV-2 COVID-19 2021-05-24 Completed Unive rsity of PFIZER VACCINE 00:00:[address] [facility] SARS-COV-2 COVID-19 2021-05-03 Completed Unive rsity of PFIZER VACCINE 00:00:[address] [facility] SARS-COV-2 COVID-19 2021-05-03 Completed Unive rsity of PFIZER VACCINE 00:00:[address] [facility] SARS-COV-2 COVID-19 2021-05-03 Completed Unive rsity of PFIZER VACCINE 00:00:[address] [facility] SARS-COV-2 COVID-19 2021-05-03 Completed Unive rsity of PFIZER VACCINE 00:00:[address] [facility] SARS-COV-2 COVID-19 2021-05-03 Completed Unive rsity of PFIZER VACCINE 00:00:[address] [facility] SARS-COV-2 COVID-19 2021-05-03 Completed Unive rsity of PFIZER VACCINE 00:00:[address] [facility] SARS-COV-2 COVID-19 2021-05-03 Completed Unive rsity of PFIZER VACCINE 00:00:[address] [facility] SARS-COV-2 COVID-19 2021-05-03 Completed Unive rsity of PFIZER VACCINE 00:00:[address] [facility] SARS-COV-2 COVID-19 2021-05-03 Completed Unive rsity of PFIZER VACCINE 00:00:[address] [facility] SARS-COV-2 COVID-19 2021-05-03 Completed Unive rsity of PFIZER VACCINE 00:00:[address] [facility] SARS-COV-2 COVID-19 2021-05-03 Completed Unive rsity of PFIZER VACCINE 00:00:[address] [facility] SARS-COV-2 COVID-19 2021-05-03 Completed Unive rsity of PFIZER VACCINE 00:00:[address] [facility] Vital Signs Vital Name Observation Time Observation Value Comments Source Systolic blood 2022-12-11 20:00:00 142 mm[Hg] Univer sity of pressure [facility] Diastolic blood 2022-12-11 20:00:00 90 mm[Hg] Unive rsity of pressure [facility] Respiratory rate 2022-12-11 20:00:00 24 /min Univ ersity of [place] [facility] Heart rate 2022-12-11 18:00:00 101 /min Universi ty of [place] [facility] Oxygen saturation in 2022-12-11 18:00:00 93 /min University of Arterial blood by [facility] kwame Pulse oximetry Branch BMI 2022-12-11 13:55:00 35.43 kg/m2 Universi ty of [place] [facility] Body temperature 2022-12-11 13:55:00 37.22 Radha Univ ersity of [place] [facility] Body weight 2022-12-11 13:55:00 90.719 kg Universi ty of [place] [facility] Systolic blood 2022-11-18 05:34:00 152 mm[Hg] Univer sity of pressure [place] [facility] Diastolic blood 2022-11-18 05:34:00 98 mm[Hg] Unive rsity of pressure [place] [facility] Heart rate 2022-11-18 05:34:00 88 /min Universi ty of [place] [facility] Respiratory rate 2022-11-18 05:34:00 18 /min Univ ersity of [place] [facility] Oxygen saturation in 2022-11-18 05:34:00 97 /min University of Arterial blood by [facility] Pulse oximetry Branch Body temperature 2022-11-17 22:28:00 37.06 Radha Univ ersity of [place] [facility] Body height 2022-11-17 22:28:00 160 cm Universi ty of [place] [facility] Body weight 2022-11-17 22:28:00 99.791 kg Universi ty of [place] [facility] BMI 2022-11-17 22:28:00 38.97 kg/m2 Universi ty of [place] [facility] Heart rate 2022-08-02 02:02:00 108 /min Universi ty of [place] [facility] Respiratory rate 2022-08-02 02:02:00 28 /min Univ ersity of [place] [facility] Oxygen saturation in 2022-08-02 02:02:00 97 /min University of Arterial blood by [place] [employer] kwame Pulse oximetry Branch Body temperature 2022-08-02 01:00:00 36.44 Radha Univ ersity of [place] [facility] Systolic blood 2022-08-01 23:29:00 145 mm[Hg] Univer sity of pressure [place] [facility] Diastolic blood 2022-08-01 23:29:00 103 mm[Hg] Unive rsity of pressure [place] [facility] Body weight 2022-08-01 09:16:00 97.977 kg Universi ty of [place] [facility] BMI 2022-08-01 09:16:00 38.26 kg/m2 Universi ty of [place] [facility] Body height 2022-07-31 21:54:00 160 cm Universi ty of [place] [facility] Systolic blood 2022-05-08 16:40:00 146 mm[Hg] Univer sity of pressure [place] [facility] Diastolic blood 2022-05-08 16:40:00 96 mm[Hg] Unive rsity of pressure [place] [facility] Heart rate 2022-05-08 16:40:00 112 /min Universi ty of [place] [facility] Body temperature 2022-05-08 16:40:00 36.78 Radha Univ ersity of [place] [facility] Respiratory rate 2022-05-08 16:40:00 18 /min Univ ersity of [place] [facility] Oxygen saturation in 2022-05-08 16:40:00 94 /min University of Arterial blood by [place] [employer] kwame Pulse oximetry Branch Body height 2022-05-05 23:44:00 160 cm Universi ty of [place] [facility] Body weight 2022-05-05 23:37:00 81.647 kg Universi ty of [place] [facility] BMI 2022-05-05 23:37:00 31.89 kg/m2 Universi ty of [place] [facility] Systolic blood 2022-04-15 18:52:00 104 mm[Hg] Univer sity of pressure [place] [facility] Diastolic blood 2022-04-15 18:52:00 82 mm[Hg] Unive rsity of pressure [place] [facility] Heart rate 2022-04-15 18:52:00 114 /min Universi ty of [place] [facility] Oxygen saturation in 2022-04-15 18:52:00 98 /min University of Arterial blood by [place] [employer] kwame Pulse oximetry Branch Body temperature 2022-04-15 16:14:00 36.28 Radha Univ ersity of [place] [facility] Respiratory rate 2022-04-15 16:14:00 17 /min Univ ersity of [place] [facility] Body height 2022-04-13 21:08:00 160 cm Universi ty of [place] [facility] Body weight 2022-04-13 21:08:00 91.173 kg Universi ty of [place] [facility] BMI 2022-04-13 21:08:00 35.61 kg/m2 Universi ty of [place] [facility] Systolic blood 2021-11-23 21:30:00 132 mm[Hg] Univer sity of pressure [place] [facility] Diastolic blood 2021-11-23 21:30:00 76 mm[Hg] Unive rsity of pressure [place] [facility] Heart rate 2021-11-23 21:30:00 95 /min Universi ty of [place] [facility] Respiratory rate 2021-11-23 21:30:00 13 /min Univ ersity of [place] [facility] Oxygen saturation in 2021-11-23 21:30:00 97 /min University of Arterial blood by [place] [employer] kwame Pulse oximetry Branch Body temperature 2021-11-23 20:15:00 37.56 Radha Univ ersity of [place] [facility] Systolic blood 2021-03-17 03:00:00 117 mm[Hg] Univer sity of pressure [place] [facility] Diastolic blood 2021-03-17 03:00:00 76 mm[Hg] Unive rsity of pressure [place] [facility] Heart rate 2021-03-17 03:00:00 104 /min Universi ty of [place] [facility] Respiratory rate 2021-03-17 03:00:00 28 /min Univ ersity of [place] [facility] Oxygen saturation in 2021-03-17 03:00:00 96 /min University of Arterial blood by [place] [employer] kwame Pulse oximetry Branch Body temperature 2021-03-17 00:39:00 37.11 Radha Univ ersity of [place] [facility] Body height 2021-03-17 00:39:00 160 cm Universi ty of [place] [facility] Body weight 2021-03-17 00:39:00 58.968 kg Universi ty of [place] [facility] BMI 2021-03-17 00:39:00 23.03 kg/m2 Universi ty [facility] [place] [facility] Systolic blood 2021-03-15 00:14:00 149 mm[Hg] Univer sity of pressure [place] [facility] Diastolic blood 2021-03-15 00:14:00 78 mm[Hg] Unive rsity of pressure [place] [facility] Heart rate 2021-03-15 00:14:00 100 /min Universi ty of [place] [facility] Body temperature 2021-03-15 00:14:00 37.33 Radha Univ ersity of [facility] Respiratory rate 2021-03-15 00:14:00 24 /min Univ ersity of [facility] Body height 2021-03-15 00:14:00 160 cm Universi ty of [place] [facility] [place] Body weight 2021-03-15 00:14:00 58.968 kg Universi ty of [place] [facility] [place] BMI 2021-03-15 00:14:00 23.03 kg/m2 Universi ty of [facility] Oxygen saturation in 2021-03-15 00:14:00 98 /min University of Arterial blood by [facility] Pulse oximetry Branch Systolic blood 2021-02-19 18:00:00 131 mm[Hg] Univer sity of pressure [facility] Diastolic blood 2021-02-19 18:00:00 80 mm[Hg] Unive rsity of [facility] Heart rate 2021-02-19 18:00:00 83 /min Universi ty of [facility] Respiratory rate 2021-02-19 18:00:00 18 /min [facility] Oxygen saturation in 2021-02-19 18:00:00 100 /min University of Arterial blood by [facility] Pulse oximetry Branch Body temperature 2021-02-19 15:47:00 37 Radha [facility] Body height 2021-02-19 15:47:00 160 cm [facility]i ty [facility] [place] [facility] [place] Body weight 2021-02-19 15:47:00 58.968 kg [facility]i ty of [place] [facility] [place] BMI 2021-02-19 15:47:00 23.03 kg/m2 Universi [facility] Respiratory rate 2022-08-03 14:40:00 18 /min [facility] Systolic blood 2022-08-03 12:13:00 112 mm[Hg] [facility] Diastolic blood 2022-08-03 12:13:00 77 mm[Hg] [facility] Heart rate 2022-08-03 12:13:00 115 /min [facility] Oxygen saturation in 2022-08-03 12:13:00 93 /min [facility] Arterial blood by Medical nter Pulse oximetry Body temperature 2022-08-03 12:00:00 36.83 Radha [facility] Body height 2022-08-02 21:52:00 160.2 cm [facility] Body weight 2022-08-02 21:52:00 95 kg [facility] BMI 2022-08-02 21:52:00 37.02 kg/m2 [facility] BP Systolic 2022-07-24 13:31:00 136 [...] CT HEAD WO CONTRAST 2022-12-11 Alfonso Mulligan [place] o f 18:36:49 [facility] URINE DRUG (IMMUNOASSAY) - 2022-12-11 Alfonso Mulligan Unive rsity of COMPREHENSIVE DRUG SCREEN 17:13:00 [facility] URINALYSIS 2022-12-11 Alfonso Mulligan [place] of 17:13:[address] [facility] [address] CHEST PULMONARY ANGIOGRAM 2022-12-11 Alfonso Mulligan Uni versity of 16:26:39 [facility] MAGNESIUM 2022-12-11 Alfonso Mulligan [place] of 14:57:00 [facility] COMP. METABOLIC PANEL (44184) 2022-12-11 Alfonso Mulligan Un iversity of 14:57:00 [facility] D-DIMER 2022-12-11 Alfonso Mulligan [place] of 14:15:00 [facility] XR CHEST 1 VW 2022-12-11 Alfonso Mulligan [place] of 14:10:26 [facility] TROPONIN I 2022-12-11 Alfonso Mulligan [place] of 14:02:00 [facility] CBC WITH DIFF 2022-12-11 Alfonso Mulligan [place] of 14:02:00 [facility] N-TERMINAL PRO-BNP 2022-12-11 Alfonso Mulligan University of 14:02:00 [facility] HB ECG ROUTINE & RHYTHM STRIP 2022-12-11 Alfonso Mulligan Un iversity of 14:01:08 [facility] CONSENT/REFUSAL FOR DIAGNOSIS 2022-12-11 Doctor Unassigned, University of AND TREATMENT 13:52:01 [place] [facility] ECG 12-LEAD 2022-08-03 Unknown, Hl7 Doctor [facility] 05:03:32 [facility] ECG 12-LEAD 2022-08-03 Unknown, Hl7 Doctor [facility] 05:03:32 [facility] ECG 12-LEAD 2022-08-03 Unknown, Hl7 Doctor [facility] 05:03:32 [facility] LIPID PANEL 2022-08-02 Donaldo Hightower [facility] 21:14:00 [facility] TSH/FREE T4 IF INDICATED 2022-08-02 Donaldo Hightower [facility] 21:14:00 [facility] VITAMIN B12 2022-08-[address] [facility] 21:14:00 [facility] HEMOGLOBIN A1C 2022-08-02 Donaldo Hightower [facility] 21:14:00 [facility] COMPREHENSIVE METABOLIC PANEL 2022-08-02 Donaldo Hightower [facility] 21:14:00 [facility] CBC W/PLT COUNT & AUTO 2022-08-02 [facility]onaldo [facility]ower [facility] DIFFERENTIAL 21:14:00 [facility] RPR 2022-08-[address] [facility] 21:14:00 [facility] HC LAB HIV-1 AG W/HIV-1&2 AB 2022-08-[address] [facility] 21:14:00 [facility] C-REACTIVE PROTEIN 2022-08-[address] [facility] 21:14:00 [facility] Center CBC W/PLT COUNT & AUTO 2022-08-02 Donaldo Hightower [facility] DIFFERENTIAL 21:14:00 [facility] EKG-SCANNED 2022-08-02 Eliceo Montanez CHI 00:00:00 Scanning [facility] Center CT HEAD WO CONTRAST 2022-08-01 Essence [facility] o f 23:52:15 [facility] GALV ONLY - INFLUENZA A B RSV 2022-08-01 Letitia Chambers Un iversity of PCR 18:28:00 [facility] TRANSTHORACIC ECHO (TTE) 2022-08-01 Kylee Montez ity of COMPLETE W/ CONTRAST 14:42:00 [facility] al Branch MAGNESIUM 2022-08-01 Lorenza Her [place] of 10:42:00 [facility] BASIC METABOLIC PANEL (NA, K, 2022-08-01 Lorenza Her Un iversity of CL, CO2, GLUCOSE, BUN, 10:42:00 [place] Med ical CREATININE, CA) Branch CBC WITH DIFF 2022-08-01 Lorenza Her [place] of 10:42:00 [facility] N-TERMINAL PRO-BNP 2022-08-01 Tc [facility] of 10:42:00 [facility] POCT GLUCOSE (AUTOMATED) 2022-08-01 Lorenza Her [facility] ity of 06:56:00 [facility] CRITICAL CARE 2022-07-31 Sav Rondon [place] of 22:31:36 [facility] URINALYSIS 2022-07-31 Sav Rondon [place] of 20:52:00 [facility] URINE DRUG (IMMUNOASSAY) - 2022-07-31 [facility] COMPREHENSIVE DRUG SCREEN W/O 20:52:00 [place] [facility] REFLEX Branch XR CHEST 1 VW 2022-07-31 Sav Rondon [place] of 18:45:17 [facility] LIPASE 2022-07-31 Sav Rondon of 17:58:00 [facility] TROPONIN I 2022-07-31 Sav Rondon [place] of 17:58:00 [facility] COMP. METABOLIC PANEL (75526) 2022-07-31 Sav Rondon iversity of 17:58:00 [facility] CBC WITH DIFF 2022-07-31 Sav Rondon of 17:58:00 [facility] PROTHROMBIN TIME / INR 2022-07-31 Sav Rondonit y of 17:58:00 [facility] ACTIVATED PARTIAL THRMPLAS 2022-07-31 Sav Rondon rsity of DAVID 17:58:00 [facility] N-TERMINAL PRO-BNP 2022-07-31 Sav Rondon [place] of 17:58:00 [facility] HB ECG ROUTINE & RHYTHM STRIP 2022-07-31 Sav Rondon iversity of 17:46:28 [facility] NOTICE OF PRIVACY PRACTICES 2022-07-31 Doctor Unassigned, U niversity of 17:35:38 [place] [facility] CONSENT/REFUSAL FOR DIAGNOSIS 2022-07-31 Doctor Unassigned, University of AND TREATMENT 17:35:13 [place] [facility] PHOSPHORUS 2022-05-08 [facility] of 05:51:00 [facility] MAGNESIUM 2022-05-08 She[facility] of 05:51:00 [facility] BASIC METABOLIC PANEL (NA, K, 2022-05-08 Shefali [place] U niversity of CL, CO2, GLUCOSE, BUN, 05:51:00 [place] Med ical CREATININE, [place]) Branch CBC WITH DIFF 2022-05-08 She[facility] of 05:51:00 [facility] BASIC METABOLIC PANEL (NA, K, 2022-05-07 [facility] of CL, CO2, GLUCOSE, BUN, 07:09:00 [facility] ical CREATININE, [place]) Branch CBC WITH DIFF 2022-05-07 [facility] of 07:09:00 [facility] [place] POCT GLUCOSE (AUTOMATED) 2022-05-07 Brandyn Mcfarlane [facility] ity of 01:16:00 [facility] HB ABO GROUPING 2022-05-06 Ismael Dunn [place] of 05:07:00 [facility] BASIC METABOLIC PANEL (NA, K, 2022-05-06 Shefali [place] U niversity of CL, CO2, GLUCOSE, BUN, 05:04:00 [place] [facility] ical CREATININE, [place]) Branch CBC WITH DIFF 2022-05-06 Shefali [facility] of 05:04:00 [facility] KEPPRA (LEVETIRACETAM) 2022-05-[address] [facility] ty of 05:04:00 [facility] MR LUMBAR SPINE WO CONTRAST 2022-05-06 Kneedler, Ender U niversity of 02:54:37 Christopher [facility] ELECTROENCEPHALOGRAM 2022-05-06 [facility] ty of 00:00:00 [facility] [place] BASIC METABOLIC PANEL (NA, K, 2022-05-05 Lexie Dunn [facility] of CL, CO2, GLUCOSE, BUN, 07:57:00 [facility] ical CREATININE, CA) Branch CBC WITH DIFF 2022-05-05 [facility] of 07:57:00 [facility] PROTHROMBIN TIME / INR 2022-05-05 [facility] ersity of 07:57:00 [facility] ACTIVATED PARTIAL THRMPLAS 2022-05-05 [facility] of DAVID 07:57:00 [facility] FIBRINOGEN 2022-05-05 [facility] of 07:57:00 [facility] EMERGENCY SERVICES AGREEMENTS 2022-05-04 Doctor Unassigned, University of AND AUTHORIZATIONS 05:01:00 [place] [facility] VITAMIN D, 25-OH 2022-04-15 Sen [place] of 16:53:00 [facility] MR THORACIC SPINE WO CONTRAST 2022-04-15 Soumya Chua Un iversity of 11:56:19 [facility] MR CERVICAL SPINE WO CONTRAST 2022-04-15 Soumya Chua Un iversity of 11:20:00 [facility] BASIC METABOLIC PANEL (NA, K, 2022-04-15 Charmaine Morataya Un iversity of CL, CO2, GLUCOSE, BUN, 10:36:00 [facility] ical CREATININE, [place]) Branch TEST, URINE 2022-04-15 Harshil [facility] of 04:39:00 [facility] URINE DRUG (IMMUNOASSAY) - 2022-04-15 [facility] COMPREHENSIVE DRUG SCREEN 04:39:00 [facility] URINALYSIS 2022-04-15 Harshil [facility] of 04:39:00 [facility] TRANSTHORACIC ECHO (TTE) 2022-04-[address] [facility] ity of COMPLETE W/ CONTRAST 16:37:03 [facility] KEPPRA (LEVETIRACETAM) 2022-04-14 Harshil [facility] y of 15:30:00 [facility] MAGNESIUM 2022-04-14 Harshil [facility] of 10:03:00 [facility] BASIC METABOLIC PANEL (NA, K, 2022-04-14 John Chuaena Un iversity of CL, CO2, GLUCOSE, BUN, 10:03:00 [place] [facility] CREATININE, [place]) Branch MR LUMBAR SPINE WO CONTRAST 2022-04-14 Harshil [facility] ersity of 02:48:12 [facility] MR STROKE BRAIN WO CONTRAST 2022-04-14 Harshil [facility] ersity of 02:29:[address] [facility] [address] STROKE ANGIOGRAM HEAD 2022-04-13 Sapna Vargas [facility] ersity of 18:40:[address] [facility] [address] STROKE ANGIOGRAM NECK 2022-04-13 Sapna Vargas [facility] ersity of 18:40:[address] [facility] [address] STROKE HEAD WO CONTRAST 2022-04-13 Sapna Vargas Un iversity of 18:36:00 [facility] TROPONIN I 2022-04-13 Sapna Vargas [place] of 18:17:00 [facility] THYROID STIMULATING HORMONE 2022-04-13 [facility] ersity of 18:17:00 [facility] BASIC METABOLIC PANEL (NA, K, 2022-04-13 Sapna Vargas [place] of CL, CO2, GLUCOSE, BUN, 18:17:00 [facility] ical CREATININE, [place]) Branch LIPID PANEL ([id number])(TOTAL 2022-04-[address] [facility] sity of CHOLESTEROL, TRIGLYCERIDES, 18:17:00 [facility] [place] [facility]) Branch CBC WITHOUT DIFF 2022-04-13 Sapna Vargas [place] o f 18:17:00 [facility] GLYCOSYLATED HEMOGLOBIN (A1C) 2022-04-13 Soumya Chua Un iversity of 18:17:00 [facility] PROTHROMBIN TIME / INR 2022-04-13 Sapna Vargas [facility] sity of 18:17:00 [facility] ACTIVATED PARTIAL THRMPLAS 2022-04-13 Sapna Vargas iversity of DAVID 18:17:00 [facility] COVID-19 (ID NOW RAPID 2022-04-13 [facility]) 18:17:00 [facility] LAB ONLY COVID INTERPRETATION 2022-04-13 Sapna Vargas [place] of 18:17:00 [facility] HB ECG ROUTINE & RHYTHM STRIP 2022-04-13 Sapna Vargas [facility] 18:15:49 [facility] CONSENT/REFUSAL FOR DIAGNOSIS 2022-04-13 Doctor Unassigned, [place] of AND TREATMENT 18:05:14 [place] [facility] HOSPITAL ADMISSION 2022-04-13 Doctor Unassigned, [place] of 05:01:00 [place] [facility] SARS-COV-2 COVID-19 VACCINE 2022-02-19 Doctor Unassigned, U niversity of 12 YRS+,0.3ML,IM (PFIZER - 15:21:12 [place] [facility] URINE DRUG (IMMUNOASSAY) - 2021-11-23 Nichelle Allison U niversity of COMPREHENSIVE DRUG SCREEN W/O 21:21:[facility] HEAD WO CONTRAST 2021-11-23 Nichelle Allison [facility] ty of 20:58:00 [facility] POCT TEST 2021-11-[facility] 20:46:00 [facility] URINALYSIS 2021-11-23 [facility] o f 20:43:00 [facility] LIPASE 2021-11-23 [facility] o f 20:27:00 [facility] TROPONIN I 2021-11-23 [facility] o f 20:27:00 [facility] COMP. METABOLIC PANEL ([id number]) 2021-11-23 [facility] of 20:27:00 [facility] CBC WITH DIFF 2021-11-23 [facility] o f 20:27:00 [facility] POCT GLUCOSE (AUTOMATED) 2021-11-23 Doctor Unassigned, Univ ersity of 20:15:00 [facility] SARS-COV-2 COVID-19 2021-05-24 Doctor Unassigned, Universit y of VACCINE,0.3ML,IM (PFIZER) 14:23:12 [facility] SARS-COV-2 COVID-19 2021-05-03 Doctor Unassigned, Universit y of VACCINE,0.3ML,IM (PFIZER) 14:59:29 [facility] EMERGENCY SERVICES AGREEMENTS 2021-04-16 Doctor Unassigned, [place] of AND AUTHORIZATIONS 05:01:00 [facility] URINALYSIS 2021-03-17 Fabrice Chakraborty [place] of 03:09:00 [facility] XR CHEST 1 VW 2021-03-17 Fabrice Chakraborty [place] of 01:45:07 [facility] TROPONIN I 2021-03-17 [facility] 01:35[facility]00 [facility] COMP. METABOLIC PANEL (31033) 2021-03-17 Fabrice Chakraborty Un iversity of 01:35:00 [facility] CBC WITH DIFF 2021-03-17 [facility] of 01:35:00 [facility] N-TERMINAL PRO-BNP 2021-03-17 [facility] of 01:35:00 [facility] COVID-19 (ID NOW RAPID 2021-03-17 Brian Ray [facility] y of TESTING) 00:58:00 [facility] CONSENT/REFUSAL FOR DIAGNOSIS 2021-03-17 Doctor Unassigned, [facility] AND TREATMENT 00:32:59 [facility] COVID-19 (ID NOW RAPID 2021-02-19 Anali Patel [facility] y of TESTING) 17:04:[address] [facility] [address] ABDOMEN PELVIS W CONTRAST 2021-02-19 Anali Patel Uni versity of 16:41:18 [facility] LIPASE 2021-02-19 Anali Patel [place] of 15:58:00 [facility] COMP. METABOLIC PANEL (83375) 2021-02-19 Anali Patel Un iversity of 15:58:00 [facility] CBC WITH DIFF 2021-02-19 Anali Patel [place] of 15:58:00 [facility] URINALYSIS 2021-02-19 Anali Patel [place] of 15:58:00 [facility] NOTICE OF PRIVACY PRACTICES 2021-02-19 Doctor Unassjulee, U niversity of 15:30:46 [facility] CONSENT/REFUSAL FOR DIAGNOSIS 2021-02-19 Doctor Unassigned, [facility] AND TREATMENT 15:30:30 [facility] Plan of Care Planned Activity Planned Date Details Comments Source Future Scheduled 2025-08-02 Lipid panel (procedure) [facility] 00:00:00 [code = 11942717] Medical Ce nter Future Scheduled 2025-08-02 Lipid panel (procedure) [facility] 00:00:00 [code = 01715415] Medical Ce nter Future Scheduled 2025-08-02 Lipid panel (procedure) [facility] 00:00:00 [code = 51743147] Medical Ce nter Future Scheduled 2025-08-02 Lipid panel (procedure) [facility] 00:00:00 [code = 33452553] Medical Ce nter Future Scheduled 2025-08-02 Lipid panel (procedure) [facility] 00:00:00 [code = 51075433] Medical Ce nter Future Scheduled 2025-08-02 Lipid panel (procedure) [facility] 00:00:00 [code = 36305515] Medical Ce nter Future Scheduled 2025-08-02 Lipid panel (procedure) [facility] 00:00:00 [code = 22517216] Medical Ce nter Future Scheduled 2025-08-02 Lipid panel (procedure) [facility] 00:00:00 [code = 86981801] Medical Ce nter Future Scheduled 2025-08-02 Lipid panel (procedure) [facility] 00:00:00 [code = 25310893] Medical Ce nter Future Scheduled 2025-08-02 Lipid panel (procedure) [facility] 00:00:00 [code = 79422045] Medical Ce nter Future Scheduled 2025-08-02 Lipid panel (procedure) [facility] 00:00:00 [code = 94650241] Medical Ce nter Future Scheduled 2023-03-[address] [facility] 00:00:00 (Season Ended) [code = Medic al Center Influenza Vaccine (Season Ended)] Future Scheduled 2023-03-20 INFLUENZA VACCINE [...] [facility] 00:[facility]:00 2) [code = SHINGLES [facility] Center VACCINES (1 of 2)] [facility] [...] cervix Medical C enter (procedure) [code = 469649397] Future Scheduled 1993-01-14 Screening for malignant [facility] 00:00:00 neoplasm of cervix Medical C enter (procedure) [code = 671120953] Future Scheduled 1993-01-14 Screening for malignant [facility] 00:00:00 neoplasm of cervix Medical C enter (procedure) [code = 560031733] Future Scheduled 1993-01-14 Screening for malignant [facility] 00:00:00 neoplasm of cervix Medical C enter (procedure) [code = 824402412] Future Scheduled 1993-01-14 Screening for malignant [facility] 00:00:00 neoplasm of cervix Medical C enter (procedure) [code = 120651397] Future Scheduled 1993-01-14 Screening for malignant [facility] 00:00:00 neoplasm of cervix Medical C enter (procedure) [code = 027007272] Future Scheduled 1993-01-14 Screening for malignant [facility] 00:00:00 neoplasm of cervix Medical C enter (procedure) [code = 636390812] Future Scheduled 1993-01-14 Screening for malignant [facility] 00:00:00 neoplasm of cervix Medical C enter (procedure) [code = 827991401] Future Scheduled 1993-01-14 Screening for malignant [facility] 00:00:00 neoplasm of cervix Medical C enter (procedure) [code = 512152398] Future Scheduled 1993-01-14 Screening for malignant [facility] 00:00:00 neoplasm of cervix Medical C enter (procedure) [code = 094449392] Future Scheduled 1993-01-14 Screening for malignant [facility] 00:00:00 neoplasm of cervix Medical C enter (procedure) [code = 419329796] Future Scheduled 1991-01-14 DTAP/TDAP/TD VACCINES CH I [...] breast Medical C enter (procedure) [code = 793796315] Future Scheduled 1972 CT Colonography (combo) [facility] 00:00:00 [code = CT [facility] ([facility])] Future Scheduled 1972 Screening for malignant [facility] 00:00:00 neoplasm of colon Medical Ce nter (procedure) [code = 911765664] Future Scheduled 1972 Screening for malignant [facility] 00:00:00 neoplasm of colon Medical Ce nter (procedure) [code = 026078306] Future Scheduled 1972 Screening for malignant [facility] 00:00:00 neoplasm of colon Medical Ce nter (procedure) [code = 468954171] Future Scheduled 1972 Screening for malignant [facility] 00:00:00 neoplasm of colon Medical Ce nter (procedure) [code = 903557826] Future Scheduled 1972 Sigmoidoscopy [facility]oscopy] Medical Cente r Future Scheduled 1972 Screening for malignant [facility] 00:00:00 neoplasm of breast Medical C enter (procedure) [code = 957666224] Future Scheduled 1972 CT Colonography (combo) [facility] 00:00:00 [code = CT [facility] (combo)] Future Scheduled 1972 Screening for malignant [facility] 00:00:00 neoplasm of colon Medical Ce nter (procedure) [code = 577749093] Future Scheduled 1972 Screening for malignant [facility] 00:00:00 neoplasm of colon Medical Ce nter (procedure) [code = 701924407] Future Scheduled 1972 Screening for malignant [facility] 00:00:00 neoplasm of colon Medical Ce nter (procedure) [code = 428807747] Future Scheduled 1972 Screening for malignant [facility] 00:00:00 neoplasm of colon Medical Ce nter (procedure) [code = 937579600] Future Scheduled 1972 Sigmoidoscopy [facility]oscopy] Medical Cente r Future Scheduled 1972 Screening for malignant [facility] 00:00:00 neoplasm of breast Medical C enter (procedure) [code = 328093580] Future Scheduled 1972 CT Colonography (combo) [facility] 00:00:00 [code = CT [facility] (combo)] Future Scheduled 1972 Screening for malignant [facility] 00:00:00 neoplasm of colon Medical Ce nter (procedure) [code = 695096401] Future Scheduled 1972 Screening for malignant [facility] 00:00:00 neoplasm of colon Medical Ce nter (procedure) [code = 679832236] Future Scheduled 1972 Screening for malignant [facility] 00:00:00 neoplasm of colon Medical Ce nter (procedure) [code = 350653411] Future Scheduled 1972 Screening for malignant [facility] 00:00:00 neoplasm of colon Medical Ce nter (procedure) [code = 016974230] Future Scheduled 1972 Sigmoidoscopy [facility]] Medical Cente r Future Scheduled 1972 Screening for malignant [facility] 00:00:00 neoplasm of breast Medical C enter (procedure) [code = 305289344] Future Scheduled 1972 CT Colonography (combo) [facility] 00:00:00 [code = CT [facility] (combo)] Future Scheduled 1972 Screening for malignant [facility] 00:00:00 neoplasm of colon Medical Ce nter (procedure) [code = 993999362] Future Scheduled 1972 Screening for malignant [facility] 00:00:00 neoplasm of colon Medical Ce nter (procedure) [code = 670965532] Future Scheduled 1972 Screening for malignant [facility] 00:00:00 neoplasm of colon Medical Ce nter (procedure) [code = 290234232] Future Scheduled 1972 Screening for malignant [facility] 00:00:00 neoplasm of colon Medical Ce nter (procedure) [code = 055614310] Future Scheduled 1972 Sigmoidoscopy [facility]] Medical Cente r Future Scheduled 1972 Screening for malignant [facility] 00:00:00 neoplasm of breast Medical C enter (procedure) [code = 941919708] Future Scheduled 1972 CT Colonography (combo) [facility] 00:00:00 [code = CT Colonography [facility] (combo)] Future Scheduled 1972 Screening for malignant [facility] 00:00:00 neoplasm of colon Medical Ce nter (procedure) [code = 907591384] Future Scheduled 1972 Screening for malignant [facility] 00:00:00 neoplasm of colon Medical Ce nter (procedure) [code = 500370335] Future Scheduled 1972 Screening for malignant [facility] 00:00:00 neoplasm of colon Medical Ce nter (procedure) [code = 411315728] Future Scheduled 1972 Screening for malignant [facility] 00:00:00 neoplasm of colon Medical Ce nter (procedure) [code = 442927967] Future Scheduled 1972 Sigmoidoscopy [facility]oscopy] Medical Cente r Future Scheduled 1972 Screening for malignant [facility] 00:00:00 neoplasm of breast Medical C enter (procedure) [code = 070034609] Future Scheduled 1972 CT Colonography (combo) [facility] 00:00:00 [code = CT [facility] (combo)] Future Scheduled 1972 Screening for malignant [facility] 00:00:00 neoplasm of colon Medical Ce nter (procedure) [code = 166496636] Future Scheduled 1972 Screening for malignant [facility] 00:00:00 neoplasm of colon Medical Ce nter (procedure) [code = 237910878] Future Scheduled 1972 Screening for malignant [facility] 00:00:00 neoplasm of colon Medical Ce nter (procedure) [code = 906533892] Future Scheduled 1972 Screening for malignant [facility] 00:00:00 neoplasm of colon Medical Ce nter (procedure) [code = 725572081] Future Scheduled 1972 Sigmoidoscopy [facility]] Medical Cente r Future Scheduled 1972 Screening for malignant [facility] 00:00:00 neoplasm of breast Medical C enter (procedure) [code = 507500832] Future Scheduled 1972 CT Colonography (combo) [facility] 00:00:00 [code = CT Colonography [facility] (combo)] Future Scheduled 1972 Screening for malignant [facility] 00:00:00 neoplasm of colon Medical Ce nter (procedure) [code = 927081125] Future Scheduled 1972 Screening for malignant [facility] 00:00:00 neoplasm of colon Medical Ce nter (procedure) [code = 595456567] Future Scheduled 1972 Screening for malignant [facility] 00:00:00 neoplasm of colon Medical Ce nter (procedure) [code = 795004316] Future Scheduled 1972 Screening for malignant [facility] 00:00:00 neoplasm of colon Medical Ce nter (procedure) [code = 601790784] Future Scheduled 1972 Sigmoidoscopy [facility]] Medical Cente r Future Scheduled 1972 Screening for malignant [facility] 00:00:00 neoplasm of breast Medical C enter (procedure) [code = 411893530] Future Scheduled 1972 CT Colonography (combo) [facility] 00:00:00 [code = CT Colonography [facility] (combo)] Future Scheduled 1972 Screening for malignant [facility] 00:00:00 neoplasm of colon Medical Ce nter (procedure) [code = 263135976] Future Scheduled 1972 Screening for malignant [facility] 00:00:00 neoplasm of colon Medical Ce nter (procedure) [code = 557199917] Future Scheduled 1972 Screening for malignant [facility] 00:00:00 neoplasm of colon Medical Ce nter (procedure) [code = 560358409] Future Scheduled 1972 Screening for malignant [facility] 00:00:00 neoplasm of colon Medical Ce nter (procedure) [code = 588666500] Future Scheduled 1972 Sigmoidoscopy [facility]code [facility]oscopy] Medical Cente r Future Scheduled 1972 Screening for malignant [facility] 00:00:00 neoplasm of breast Medical C enter (procedure) [code = 914242456] Future Scheduled 1972 CT Colonography (combo) [facility] 00:00:00 [code = CT Colonography [facility] (combo)] Future Scheduled 1972 Screening for malignant [facility] 00:00:00 neoplasm of colon Medical Ce nter (procedure) [code = 554611900] Future Scheduled 1972 Screening for malignant [facility] 00:00:00 neoplasm of colon Medical Ce nter (procedure) [code = 485182596] Future Scheduled 1972 Screening for malignant [facility] 00:00:00 neoplasm of colon Medical Ce nter (procedure) [code = 354283693] Future Scheduled 1972 Screening for malignant [facility] 00:00:00 neoplasm of colon Medical Ce nter (procedure) [code = 253733930] Future Scheduled 1972 Sigmoidoscopy [facility]code [facility]oscopy] Medical Cente r Future Scheduled 1972 Screening for malignant [facility] 00:00:00 neoplasm of breast Medical C enter (procedure) [code = 330291681] Future Scheduled 1972 CT Colonography (combo) [facility] 00:00:00 [code = CT Colonography [facility] (com[facility])] Future Scheduled 1972 Screening for malignant [facility] 00:00:00 neoplasm of colon Medical Ce nter (procedure) [code = 351633257] Future Scheduled 1972 Screening for malignant [facility] 00:00:00 neoplasm of colon Medical Ce nter (procedure) [code = 776749540] Future Scheduled 1972 Screening for malignant [facility] 00:00:00 neoplasm of colon Medical Ce nter (procedure) [code = 033521388] Future Scheduled 1972 Screening for malignant [facility] 00:00:00 neoplasm of colon Medical Ce nter (procedure) [code = 148954614] Future Scheduled 1972 Sigmoidoscopy [facility]code [facility]oscopy] Medical Cente r Future Scheduled 1972 Screening for malignant [facility] 00:00:00 neoplasm of breast Medical C enter (procedure) [code = 591885613] Future Scheduled 1972 CT Colonography (combo) [facility] 00:00:00 [code = CT Colonography [facility] (combo)] Future Scheduled 1972 Screening for malignant [facility] 00:00:00 neoplasm of colon Medical Ce nter (procedure) [code = 173086486] Future Scheduled 1972 Screening for malignant [facility] 00:00:00 neoplasm of colon Medical Ce nter (procedure) [code = 571397184] Future Scheduled 1972 Screening for malignant [facility] 00:00:00 neoplasm of colon Medical Ce nter (procedure) [code = 628135858] Future Scheduled 1972 Screening for malignant [facility] 00:00:00 neoplasm of colon Medical Ce nter (procedure) [code = 300097328] Future Scheduled 1972 Sigmoidoscopy [facility]code [facility]] Medical Cente r Goal Plan of Care Note [code = 09487-3] Goal Plan of Care Note [code = 60467-5] Goal Plan of Care Note [code = 48684-0] Goal Plan of Care Note [code = 46812-7] Goal Plan of Care Note [code = 49340-9] Goal Plan of Care Note [code = 11856-1] Goal Plan of Care Note [code = 54611-0] Goal Plan of Care Note [code = 73694-6] Goal Plan of Care Note [code = 32477-3] Goal Plan of Care Note [code = 69388-2] Goal Plan of Care Note [code = 07729-9] Goal Plan of Care Note [code = 81804-5] Goal Plan of Care Note [code = 08590-1] Goal Plan of Care Note [code = 28392-5] Goal Plan of Care Note [code = 74376-4] Goal Plan of Care Note [code = 17495-3] Goal Plan of Care Note [code = 12903-7] Goal Plan of Care Note [code = 52424-6] Goal Plan of Care Note [code = 77765-2] Goal Plan of Care Note [code = 01785-3] Goal Plan of Care Note [code = 52043-7] Goal Plan of Care Note [code = 92686-5] Goal Plan of Care Note [code = 54508-3] Goal Plan of Care Note [code = 28081-4] Goal Plan of Care Note [code = 78103-2] Goal Plan of Care Note [code = 11237-2] Goal Plan of Care Note [code = 79342-6] Goal Plan of Care Note [code = 48371-8] Goal Plan of Care Note [code = 56710-2] Goal Plan of Care Note [code = 83472-3] Goal Plan of Care Note [code = 22410-1] Goal Plan of Care Note [code = 68346-0] Goal Plan of Care Note [code = 33562-8] Goal Plan of Care Note [code = 95912-4] Goal Plan of Care Note [code = 57069-5] Encounters Start End Encounter Admission Attending Care Care Encounter Source Date/Time Date/Time Type Type Clinicians Facility Department ID 2021-05-[address] [facility] [id number] Univers 18:48:04 [facility] 2021-05-[address] [facility] [id number] Univers 12:43:40 [facility] 2022-12-11 2022-12-11 Emergency X JENNY, K [facility] ERT [id number] Univers 08:56:00 15:29:00 ity of [facility] 2022-12-11 2022-12-11 Emergency Jenny, K [facility] 1.2.840.114 [id number] Univers 08:56:00 15:29:00 Lorelei HERNANDEZ 350.1.13.10 i [place] of [place] [id number] [place] [id number] [place] 2022-11-17 2022-11-18 Emergency X BRIANA, [facility] ERT [id number] Univers 17:25:00 01:19:00 RITCHIE najera [facility] 2022-11-17 2022-11-18 Emergency Briana, [facility] 1.2.905.857 [id number] Univers 17:25:00 01:19:00 Ritchie Stoner MARY 350.1.13.10 ity of [facility] 4.2.7.[place] [id number] [place] [id number] [place] 2022-08-28 2022-08-28 Patient Shy Beckman 1.2.840.114 [id number] Univers 00:00:00 00:00:00 Outreach E [place] 350.1.13.10 [place] [id number] [facility] [address] 2022-08-20 2022-08-20 Patient Shy Beckman 1.2.840.114 [id number] Univers 00:00:00 00:00:00 Outreach E [place] 350.1.13.10 [place] [id number] [facility] [address] 2022-08-02 2022-08-03 [facility] [id number] [facility] 17:30:00 14:29:00 [facility]22-08-02 2022-08-03 [facility], Halima [facility] [id number] 17:30:00 14:29:00 Encounter Jen Yepez dominic [facility] 2022-08-02 2022-08-03 Outpatient ER CORRYDEISI Stoner Neurology [id number] [facility] 17:30:00 14:29:00 [facility] 2022-08-03 2022-08-03 Orders [facility] [id number] 00:00:00 00:00:00 Only [facility] 2022-08-03 2022-08-03 Orders [facility] [id number] 00:00:00 00:00:00 Only [facility] 2022-08-02 2022-08-[address] [facility] [id number] [facility] 00:[facility]00 [facility] 2022-08-02 2022-08-[address] [facility] [id number] [facility] 00:[facility] 00:00:00 [facility] 2022-07-31 2022-08-01 Inpatient X [facility] [id number] Univers 11:42:00 21:48:00 LORENZA najera [facility] 2022-07-31 2022-08-01 [facility] Sav Rondon [facility] 1.2.840.1 [id number] Univers 11:42:00 21:48:00 Encounter Lorenza Her 350.1.13.10 ity of [place] [facility] [id number] [facility] [address] 2022-08-01 2022-08-01 Transition BLAYNE Nicole 1.2.840.114 [id number] Univers 00:00:00 00:00:00 of Care Maria Teresa [place] 350.1.13.10 ity of [place] [id number] [facility] [address] 2022-07-28 2022-07-28 Outpatient SFA BHARAT [id number] Adria 14:41:38 14:41:38 0109 F Mauricio 2022-07-28 2022-07-28 Outpatient [id number] 00:00:00 00:00:00 Visit [id number] 2022-07-24 2022-07-24 Outpatient [facility] [id number] Adria 13:24:40 13:24:40 0105 F [place] 2022-05-23 2022-05-23 Outpatient [facility] [id number] Adria 14:51:01 14:51:01 1104 F Mauricio 2022-05-23 2022-05-23 Outpatient [id number] 00:00:00 00:00:00 Visit [id number] 2022-05-04 2022-05-08 Outpatient X CHANTEL MATTHEWS [facility] S [id number] [facility] 20:22:00 14:44:00 [facility]22-[facility]-04 2022-05-08 Emergency Brandyn Mcfarlane 1.2.840.1 [id number] [facility] 20:22:00 14:44:00 Chantel Matthews 350.1.13 .10 ity [facility] 4.2.7.2.686 [facility] [id number] [address] 2022-04-13 2022-04-15 Inpatient X [facility] [id number] Univers 13:06:00 15:00:00 [facility] ity [facility] 2022-04-13 2022-04-15 [facility] Sapna Vargas 1.2.84 0.114 [id number] [facility] 13:06:00 15:00:00 Encounter Glory Esteves 350. 1.13.10 [facility] 4.2.7.2.686 [place] [id number] [address] 2022-02-19 2022-02-19 Imm/Inj Vaccine, [facility] [place] 1.2.840.114 [id number] Univers 10:20:00 10:30:00 Visit Pasha, Jose [place] 350.1.13.10 [place] [facility] [id number] [address] 2022-02-19 2022-02-19 Outpatient R PASHA JOSE [facility] [id number] Univers 10:20:00 10:20:00 ity of [facility] 2021-11-23 2021-11-23 Emergency X ESTEFANY [facility] ERT [id number] Univers 15:07:00 17:03:00 NICHELLE ity [facility] 2021-11-23 2021-11-23 Emergency Sav Rondon [facility] 1.2.840. 114 [id number] Univers 15:07:00 17:03:00 Nichelle Allison [place] 350.1.13. 10 ity of [place] 4.2.7.2.686 [facility] [id number] [facility] [address] [place] 2021-11-21 2021-11-21 Outpatient R [facility] [id number] Univers 09:40:00 09:40:00 ity of [facility] 2021-05-24 2021-05-24 Outpatient R PASHAJOSE REVELES [facility] [id number] Univers 09:30:00 09:30:00 ity [facility] 2021-05-24 2021-05-24 Imm/Inj Vaccine, [facility] [place] 1.2.840.114 [id number] Univers 08:47:51 08:57:51 Visit Jose Frederick 350.1.13.10 [place] [facility] [id number] [address] 2021-05-03 2021-05-03 Outpatient R PASHA JOSE [facility] [id number] Univers 09:40:00 09:59:35 ity [facility] 2021-05-03 2021-05-03 Imm/Inj Vaccine, [facility] [place] 1.2.840.114 [id number] Univers 09:17:43 09:59:35 Visit Jose Frederick 350.1.13.10 [place] [facility] [id number] [facility] [facility] [address] 2021-04-16 2021-04-16 Orders Doctor EWELINA 1.2.840.114 [id number] Univers 00:00:00 00:00:00 Only Unassigned, HOSEA 350.1.13.10 ity of [place] [facility] 4.2.7.2.686 Javier as [phone] [facility] [address] 2021-03-17 2021-03-17 Telephone EWELINA Nava [id number] Univers 00:00:00 00:00:00 Aneatrice HOSEA 350.1.13.10 ity of [facility] 4.2.7.2.686 Javier as [phone] [facility] [address] 2021-03-16 2021-03-16 Emergency [facility] 1.2.840.114 [id number] Univers 20:08:00 23:24:00 Fabrice Hernandez 350.1.13.10 i ty of [place] 4.2.7.2.686 [facility] [phone] [facility] [address] 2021-03-14 2021-03-14 Urgent Lydia Desouza [facility] 1.2.840.114 [id number] Univers 18:59:34 20:19:13 Care Unknown, Attending Health 350.1.13.10 ity of [place] 4.2.7.2.686 Javier as Prem?Blea [phone] Fl dical [address] Medical Office Building 2021-03-14 2021-03-14 Outpatient R UNKNOWN, [facility] [id number] Univers 19:00:00 19:00:00 ATTENDING ity of [facility] 2021-02-19 2021-02-19 Emergency [facility] [id number] Univers 10:49:00 14:48:00 Anali Hernandez 350.1.13.10 i ty of [place] 4.2.7.2.686 [facility] [phone] [facility] [address] 2019-03-09 2019-03-09 Dick Arcos [facility] 1.2.840.114 [id number] 00:00:00 00:00:00 Yehuda Hernandez 350.1.13.10 [place] 4.2.7.2.686 Professio [phone] [facility] 2019-03-09 2019-03-09 Dick Arcos [facility] 1.2.840.114 [id number] [facility] 00:00:00 00:00:00 Yehuda Hernandez 350.1.13.10 ity of [place] 4.2.7.2.686 [facility] [phone] Fl dical [address] Results Test Description Test Time Test Comments Results Result Comments Source MAGNESIUM 2022-12-11 17:14:06 Test Item Value Reference Range Interpretation Comme nts MAGNESIUM (test code = 0508315837) 1.9 mg/dL 1.7-2.4 Lab Interpretation (test code = 58611-8) Normal [facility] (36598)2022-12-11 15:16:25 Test Item Value Reference Range Interpretation Comments NA (test code = 139 mmol/L 135-145 6856069736) K (test code = 3.5 mmol/L 3.5-5.0 9534607569) CL (test code = 107 mmol/L 98-108 3333285324) CO2 TOTAL (test code = 24 mmol/L 23-31 6965692871) AGAP (test code = 8 2-16 4203057166) BUN (test code = 9 mg/dL 7-23 6640915109) GLUCOSE (test code = 129 mg/dL 70-110 H 6941504786) CREATININE (test code = 0.68 mg/dL 0.50-1.04 6136799256) TOTAL BILI (test code = 0.5 mg/dL 0.1-1.5 9117752265) CALCIUM (test code = 8.9 mg/dL 8.6-10.6 4229778627) T PROTEIN (test code = 6.3 g/dL 6.3-8.2 0293519449) ALBUMIN (test code = 3.8 g/dL 3.5-5.0 0643197196) ALK PHOS (test code = 87 U/L 34-122 8020789794) ALTv (test code = 24 U/L 5-35 1742-6) AST(SGOT) (test code = 21 U/L 13-40 2320241301) eGFR (test code = 91.6 mL/min/1.73m2 0973018766) LYNDSAY (test code = LYNDSAY) Association of [...] tests). Lab Interpretation Abnormal (test code = 90115-9) [facility] [id number] 15:10:45 Test Item Value Reference Range Interpretation Comments TROPONIN I (test code = 0.015 ng/mL <=0.034 4818803521) LYNDSAY (test code = LYNDSAY) Reference (Normal) [...] biotin. Lab Interpretation Normal (test code = 11209-7) [facility] [id number] 15:07:48 Test Item Value Reference Range Interpretation Comments NT-proBNP (test code = 1460 pg/mL <=125 H 3258777866) LYNDSAY (test code = LYNDSAY) Biotin has been reported to cause a negative bias, interpret results relative to patient's use of biotin. Lab Interpretation (test Abnormal code = 74133-9) [facility] CenterD-[id number] 14:45:24 Test Item Value Reference Interpretation Comments Range D-DIMER (test code = 0.99 See_Comment H [Autom ated 7360954090) message] The system which generated this result [...] diagnosis. Lab Interpretation Abnormal (test code = 53876-5) [facility] WITH [id number] 14:14:48 Test Item Value Reference Range Interpretation Comments WBC (test code = 7.86 See_Comment [Automated 6690-2) message] The sy stem which generated this result transmitted reference range : 4.30 - 11.10 10*3/?L. The reference range was not used to interpret this result as normal/abnormal . RBC (test code = 5.13 See_Comment [Automated 789-8) message] The sy stem [...] RDW-SD (test code = 47.8 fL 39.0-49.9 26234-2) RDW-CV (test code = 16.9 % 12.0-15.5 H 788-0) PLT (test code = 507 See_Comment H [Automated 777-3) message] The sy stem which generated this result transmitted reference range : 166 - 358 10*3/ ?L. The reference r zoe was not used to interpret this result as normal/abnormal . MPV (test code = 8.2 fL 9.5-12.9 L 34577-6) NRBC/100 WBC (test 0.0 See_Comment [Automat ed code = 7712116065) message] The system which generated this result transmitted reference range : 0.0 - 10.0 /100 WBCs. The refer ence range was not u sed to interpret th is result as normal/abnormal . NRBC x10^3 (test code See_Comment [Auto mated = 4528735305) message] The s ystem which generated this result transmitted reference range : 10*3/?L. The reference range was not used to interpret this result as normal/abnormal . GRAN MAT (NEUT) % 64.5 % (test code = 770-8) IMM GRAN % (test code 0.30 % = 6461343663) LYMPH % (test code = 25.6 % 736-9) MONO % (test code = 7.5 % 5905-5) EOS % (test code = 1.0 % 713-8) BASO % (test code = 1.1 % 706-2) GRAN MAT x10^3(ANC) 5.07 10*3/uL 1.88-7.09 (test code = 3862773208) IMM GRAN x10^3 (test 0.00-0.06 code = 3375700807) LYMPH x10^3 (test code 2.01 10*3/uL 1.32-3.29 = 731-0) MONO x10^3 (test code 0.59 10*3/uL 0.33-0.92 = 742-7) EOS x10^3 (test code = 0.08 10*3/uL 0.03-0.39 711-2) BASO x10^3 (test code 0.09 10*3/uL 0.01-0.07 H = 704-7) Lab Interpretation Abnormal (test code = 85149-2) [facility]PR20[facility] 13:17:22 Test Item Value Reference Range Interpretation Comments RPR SCREEN ([employer]) (test code = Nonreactive Nonreactive 420) HEMOGLOBIN [id number] 10:39:49 Test Item Value Reference Range Interpretation Comments HEMOGLOBIN A1C 5.8 % See_Comment H [Automated m essage] ELECTROPHORESIS ([employer]) The system which (test code = 3811) generated this result transmitted ref erence range: <=5.6%. The reference range was not used to int erpret this result as normal/abnormal . "The A1c is measured using a NGSP-certified method. HbA1c value equal to or greater than 6.5% as thediagnosis cutoff for diabetes. An HbA1c value of 5.7- 6.4% indicates increased risk for diabetes (prediabetes)."[employer] Electrician ID - ADM VITAMIN [id number] 22:48:27 Test Item Value Reference Range Interpretation Comments VITAMIN B12 ([employer]) (test code = 227 pg/mL 213-908 514) Industrial Maintenance Electrician ID - MARCOTSH/FREE T4 IF [id number] 22:08:28 Test Item Value Reference Range Interpretation Comments THYROID STIMULATING HORMONE 3.309 uIU/mL 0.350-4.940 (BEAKER) (test code = 772) Industrial Maintenance Electrician ID - JSHIV-1 ANTIGEN WITH HIV-1/2 [id number] 22:08:28 Test Item Value Reference Range Interpretation Comments HIV-1 ANTIGEN WITH HIV 1\\T\\2 Nonreactive Nonreactive ANTIBODY (2) (BEAKER) (test code = 2586) Industrial Maintenance Electrician ID - JSC-REACTIVE [id number] 21:49:44 Test Item Value Reference Range Interpretation Comments C-REACTIVE PROTEIN (BEAKER) (test 0.35 mg/dL 0.00-0.50 code = 676) Industrial Maintenance Electrician ID - JSCOMPREHENSIVE METABOLIC [id number] 21:49:43 Test Item Value Reference Range Interpretation [...] not appl icable for dialysis patien ts Industrial Maintenance Electrician ID - JSLIPID [id number] 21:49:43 Test Item Value Reference Range Interpretation [...] Borderline 130-159 High 160-189 Very High >=190 Industrial Maintenance Electrician ID - JSCBC W/PLT COUNT & AUTO [id number] 21:34:03 Test Item Value Reference Range Interpretation [...] Interpretation Comments Height (test code = in 6031783351) Weight (test code = lbs 8644364197) Systolic BP (test code = mmHg 4860291962) Diastolic BP (test code mmHg = 9531303242) Heart Rate (test code = bpm 2840646631) BSA (test code = 2.00 m2 4216763373) Ao root diam (test code 3.20 cm = 2726037995) Aortic root (test code = 3.2 cm 9322909413) Ao root annulus (test 3.2 cm code = 5253353431) LVOT diameter (test code 1.99 cm = 6543357789) LVOT area (test code = 3.10 cm2 0590560550) LVIDD (test code = 5.10 cm 0338275116) Left Ventricular End 123.0 mL Diastolic Volume by Teichholz Method (test code = 0973371) IVS (test code = 1.34 cm 1359867157) Interventricular Septum 1.34 cm Diastolic Thickness by 2D (test code = 1834149) LVPWD (test code = 1.34 cm 2236038013) PW (test code = 1.34 cm 0.6-1.6 2004983881) EF(Teich) (test code = 41.80 % 9505415181) LVIDS (test code = 4.00 cm 9301629176) Left Ventricular End 71.5 mL Systolic Volume by Teichholz Method (test code = 2961909) FS (test code = 21 % 0779769419) EF - 2D (test code = 41.80 % 61020873) LA size (test code = 4.6 cm 2075510347) Pulmonic Regurgitant End 119.4 cm/s Max Velocity (test code = 6984826208) LAV(MOD-sp4) (test code 95.00 mL = 1213508623) E wave decelartion time 0.15 s (test code = 9686536397) MV stenosis pressure 1/2 45.6 ms time (test code = 7366624028) MV Peak A Evette (test code 123.8 cm/s = 8147431003) MV Peak E Evette (test code 109.7 cm/s = 9577855149) E/A ratio (test code = ratio 7232191098) MR max PG (test code = 87.20 mm[Hg] 3940394641) MR max evette (test code = 466.90 cm/s 2685844280) Mr max evette (test code = 466.9 m/s 3882858336) MV Prop V (test code = 51.00 cm/s 8266854787) MV E/e' septal (test 8.1 cm/s code = 2707875809) Tapse (test code = 2.21 cm 6052024286) LVOT stroke volume (test 49.80 cm3 code = 5882706465) LVOT peak evette (test code 89.1 cm/s = 3160506567) LVOT mn grad (test code mmHg = 8862596453) AV LVOT peak gradient mmHg (test code = 1293945015) LVOT peak VTI (test code 16.0 cm = 3886867733) LV V1 mean (test code = 64.30 cm/s 2734519362) Aortic valve mean 133.8 cm/s velocity (test code = 9328739668) Ao peak evette (test code = 175.3 cm/s 8633579766) Ao VTI (test code = 32.2 cm 6694085893) AV area by cont VTI 1.6 cm2 (test code = 1852902734) AV area peak evette (test 1.6 cm2 code = 1614200163) Ao max PG (test code = 12.30 mm[Hg] 1910277874) AV peak gradient (test mmHg code = 8022466116) AV valve area (test code 1.55 cm2 = 4671644616) AV mean gradient (test mmHg code = 1793433456) AV regurgitation 358.5 ms pressure 1/2 time (test code = 5739555840) AI dec slope (test code 364.20 cm/s2 = 1860885569) AI max evette (test code = 445.80 cm/s 5061840955) AI max PG (test code = 79.50 mm[Hg] 2627517489) Radiology Study observation (narrative) (test code = 98896-8) LYNDSAY (test code = LYNDSAY) ?Left?Ventricle: Left [...] mL of Lumason ultrasound enhancing agent used. [facility]2022-08-01 10:43:32 Test Item Value Reference Range Interpretation Comments POCT GLU (test code = 4901943423) 148 mg/dL 70-110 H Lab Interpretation (test code = Abnormal 20749-1) [facility] CenterACTIVATED PARTIAL THRMPLAS [id number] 18:39:45 Test Item Value Reference Range Interpretation Comments APTT Patient (test See_Comment [Automat ed code = 3173-2) message] The system which generated this result transmitted reference range : 23 - 38 Seconds . The reference range was not used to interpr et this result as normal/abnormal . LYNDSAY (test code = LYNDSAY) The [facility] patient population mean normal value for aPTT is 30 seconds. Lab Interpretation Normal (test code = 87656-6) [facility] CenterPROTHROMBIN TIME / [id number] 18:37:42 Test Item Value Reference Range Interpretation [...] tions. Lab Interpretation (test Normal code = 69232-0) [facility] CenterTROPONIN [id number] 18:32:01 Test Item Value Reference Interpretation Comments Range TROPONIN I (test 0.019 ng/mL See_Comment [Automated code = 7383987935) message] The system which generated this result [...] biotin. Lab Interpretation Normal (test code = 16217-8) [facility] Center[facility]MINAL [id number] 18:29:01 Test Item Value Reference Range Interpretation Comments NT-proBNP (test code 2770 pg/mL See_Comment H [Autom ated = 6711244334) message] The system which generated this result transmitted reference range : <=125. The reference range was not used to interpret this result as normal/abnormal . LYNDSAY (test code = LYNDSAY) Biotin has been reported to cause a negative bias, interpret results relative to patient's use of biotin. Lab Interpretation Abnormal (test code = 90363-6) [facility] Center[facility] MET[facility]OLIC PANEL (26926)2022-07-31 18:21:42 Test Item Value Reference Range Interpretation Comments NA (test code = 136 mmol/L 135-145 5734338115) K (test code = 4.6 mmol/L 3.5-5.0 6603871168) CL (test code = 104 mmol/L 98-108 7104219612) CO2 TOTAL (test code = 26 mmol/L 23-31 4748166550) AGAP (test code = 2-16 6100857107) BUN (test code = 9 mg/dL 7-23 0963581841) GLUCOSE (test code = 97 mg/dL 70-110 2183782894) CREATININE (test code = 0.64 mg/dL 0.50-1.04 6427405000) TOTAL BILI (test code = 0.5 mg/dL 0.1-1.1 4436461492) CALCIUM (test code = 8.2 mg/dL 8.6-10.6 L 4380298910) T PROTEIN (test code = 6.5 g/dL 6.3-8.2 1681199540) ALBUMIN (test code = 3.9 g/dL 3.5-5.0 3810983831) ALK PHOS (test code = 93 U/L 34-122 0290151875) ALTv (test code = 18 U/L 5-35 1742-6) AST(SGOT) (test code = 19 U/L 13-40 4326211715) eGFR (test code = mL/min/1.73m2 9560159971) LYNDSAY (test code = LYNDSAY) Association of [...] tests). Lab Interpretation Abnormal (test code = 35063-8) [facility] CenterLIPASE2023-01-12 18:21:01 Test Item Value Reference Range Interpretation Comments LIPASE (test code = 6711375164) 54 U/L 0-220 Lab Interpretation (test code = Normal 91748-3) [facility] CenterCB WITH [id number] 18:07:00 Test Item Value Reference Range Interpretation [...] (test code = 53.1 fL 39.0-49.9 H 08197-1) RDW-CV (test code = 17.0 % 12.0-15.5 H 788-0) PLT (test code = See_Comment H [Automated 777-3) message] The sy stem which generated this result transmitted reference range : 166 - 358 10*3/ ?L. The reference r zoe was not used to interpret this result as normal/abnormal . MPV (test code = 8.2 fL 9.5-12.9 L 73454-6) NRBC/100 WBC (test See_Comment [Automat ed code = 4344311049) message] The system which generated this result transmitted reference range : 0.0 - 10.0 /100 WBCs. The refer ence range was not u sed to interpret th is result as normal/abnormal . NRBC x10^3 (test code See_Comment [Auto mated = 7823895184) message] The s ystem which generated this result transmitted reference range : 10*3/?L. The reference range was not used to interpret this result as normal/abnormal . GRAN MAT (NEUT) % 64.0 % (test code = 770-8) IMM GRAN % (test code 0.40 % = 7959302366) LYMPH % (test code = 27.3 % 736-9) MONO % (test code = 6.5 % 5905-5) EOS % (test code = 1.1 % 713-8) BASO % (test code = 0.7 % 706-2) GRAN MAT x10^3(ANC) 5.46 10*3/uL 1.88-7.09 (test code = 6814991917) IMM GRAN x10^3 (test 0.03 10*3/uL 0.00-0.06 code = 7602210917) LYMPH x10^3 (test code 2.32 10*3/uL 1.32-3.29 = 731-0) MONO x10^3 (test code 0.55 10*3/uL 0.33-0.92 = 742-7) EOS x10^3 (test code = 0.09 10*3/uL 0.03-0.39 711-2) BASO x10^3 (test code 0.06 10*3/uL 0.01-0.07 = 704-7) Lab Interpretation Abnormal (test code = 98903-8) [facility] METABOLIC PANEL (NA, K, CL, CO2, GLUCOSE, BUN, CREATININE, CA)2022-05-08 06:37:01 Test Item Value Reference Range Interpretation Comments NA (test code = 137 mmol/L 135-145 8145177939) K (test code = 3.8 mmol/L 3.5-5 1705379201) CL (test code = 103 mmol/L 98-108 1890514727) CO2 TOTAL (test code = 24 mmol/L 23-31 5550931330) AGAP (test code = 2-16 4200666931) BUN (test code = 13 mg/dL 7-23 4921984056) GLUCOSE (test code = 90 mg/dL 70-110 7983672985) CREATININE (test code = 0.69 mg/dL 0.5-1.04 0081088206) CALCIUM (test code = 8.5 mg/dL 8.6-10.6 L 2324472968) eGFR (test code = mL/min/1.73m2 9059143078) LYNDSAY (test code = LYNDSAY) Association of [...] tests). Lab Interpretation Abnormal (test code = 43000-1) [facility]20[facility] 06:37:01 Test Item Value Reference Range Interpretation Comments MAGNESIUM (test code = 3310556144) 2.1 mg/dL 1.7-2.4 Lab Interpretation (test code = Normal 59658-5) [facility] CenterPHOSPHORUS2022-10-20 06:37:01 Test Item Value Reference Range Interpretation Comments PHOSPHORUS (test code = 9891478595) 4.7 mg/dL 2.5-5 Lab Interpretation (test code = Normal 52809-1) [facility] WITH [id number] 06:11:54 Test Item Value Reference Range Interpretation [...] (test code = 51.0 fL 39-49.9 H 54196-8) RDW-CV (test code = 16.5 % 12-15.5 H 788-0) PLT (test code = See_Comment H [Automated 777-3) message] The sy stem which generated this result transmitted reference range : 166 - 358 10*3/ ?L. The reference r zoe was not used to interpret this result as normal/abnormal . MPV (test code = 8.3 fL 9.5-12.9 L 04324-1) NRBC/100 WBC (test See_Comment [Automat ed code = 0241876103) message] The system which generated this result transmitted reference range : 0.0 - 10.0 /100 WBCs. The refer ence range was not u sed to interpret th is result as normal/abnormal . NRBC x10^3 (test code See_Comment [Auto mated = 5871299216) message] The s ystem which generated this result transmitted reference range : 10*3/?L. The reference range was not used to interpret this result as normal/abnormal . GRAN MAT (NEUT) % 64.5 % (test code = 770-8) IMM GRAN % (test code 0.50 % = 9551445543) LYMPH % (test code = 27.1 % 736-9) MONO % (test code = 6.6 % 5905-5) EOS % (test code = 0.6 % 713-8) BASO % (test code = 0.7 % 706-2) GRAN MAT x10^3(ANC) 5.28 10*3/uL 1.88-7.09 (test code = 7204037932) IMM GRAN x10^3 (test 0.04 10*3/uL 0-0.06 code = 6794801388) LYMPH x10^3 (test code 2.22 10*3/uL 1.32-3.29 = 731-0) MONO x10^3 (test code 0.54 10*3/uL 0.33-0.92 = 742-7) EOS x10^3 (test code = 0.05 10*3/uL 0.03-0.39 711-2) BASO x10^3 (test code 0.06 10*3/uL 0.01-0.07 = 704-7) Lab Interpretation Abnormal (test code = 80723-1) [facility]2022-05-07 01:18:10 Test Item Value Reference Range Interpretation Comments POCT GLU (test code = 1672574258) 120 mg/dL 70-110 H Lab Interpretation (test code = Abnormal 43475-2) [facility] CenterType and Screen - ONCE [id number] 05:46:35 Test Item Value Reference Range Interpretation Comments ABO & RH (test code O POSITIVE Performe d at [facility] = 20) Laboratory Serv [facility] Blood Bank3 [address] [facility] [address]Evdu Free: [phone] A No. [id number] IAT (test code = Negative Performed a t [facility] 1185) Laboratory Serv [facility] Blood [address]Charles [place] [address]W[place] Free: [phone] A No. [id number] [facility] (NA, K, CL, CO2, GLUCOSE, BUN, CREATININE, CA)2022-05-05 08:22:57 Test Item Value Reference Range Interpretation Comments NA (test code = 136 mmol/L 135-145 3799622735) K (test code = 4.9 mmol/L 3.5-5 9828398803) CL (test code = 108 mmol/L 98-108 2617175998) CO2 TOTAL (test code = 22 mmol/L 23-31 L 4687973135) AGAP (test code = 2-16 9002423823) BUN (test code = 12 mg/dL 7-23 7193657043) GLUCOSE (test code = 155 mg/dL 70-110 H 7809604450) CREATININE (test code = 0.63 mg/dL 0.5-1.04 8145071285) CALCIUM (test code = 8.4 mg/dL 8.6-10.6 L 9574035339) eGFR (test code = mL/min/1.73m2 1558948745) LYNDSAY (test code = LYNDSAY) Association of [...] tests). Lab Interpretation Abnormal (test code = 29879-1) [facility] CenterPROTHROMBIN TIME / [id number] 08:22:37 Test Item Value Reference Range Interpretation Comments PROTIME PATIENT (test See_Comment [Auto mated message] code = 5964-2) The system [email or web address] ich generated this result transmitted ref erence range: 10.1 - 1 2.6 Seconds. The re ference range was not u sed to interpret this result as normal/abnor mal. INR (test code = 6301-6) Nor mal INR <1.1; Warfarin Therap eutic range 2.0 to 3. 0 or 2.5 to 3.5, dep ending upon the indica tions. Lab Interpretation (test Normal code = 31682-9) [facility] CenteraPTT2022-10-17 08:22:37 Test Item Value Reference Range Interpretation Comments APTT Patient (test code = See_Comment [ Automated message] 3173-2) The system [email or web address] h generated this result transmitted ref erence range: 26 - 36 Seconds. The re ference range was not u sed to interpret this result as normal/abnor mal. Lab Interpretation (test Normal code = 08231-6) [facility] CenterFIBRINOGEN2022-10-17 08:22:37 Test Item Value Reference Range Interpretation Comments Fibrinogen (test code = 1483225696) 294 mg/dL 167-453 Lab Interpretation (test code = Normal 43463-9) [facility] CenterCBC WITH [id number] 08:15:01 Test Item Value Reference Range Interpretation Comments WBC (test code = See_Comment [Automated 2690-2) message] The sy stem which generated this [...] (test code = 52.9 fL 39-49.9 H 34496-2) RDW-CV (test code = 16.8 % 12-15.5 H 788-0) PLT (test code = See_Comment H [Automated 777-3) message] The sy stem which generated this result transmitted reference range : 166 - 358 10*3/ ?L. The reference r zoe was not used to interpret this result as normal/abnormal . MPV (test code = 8.3 fL 9.5-12.9 L 62005-8) NRBC/100 WBC (test See_Comment [Automat ed code = 0917921066) message] The system which generated this result transmitted reference range : 0.0 - 10.0 /100 WBCs. The refer ence range was not u sed to interpret th is result as normal/abnormal . NRBC x10^3 (test code See_Comment [Auto mated = 6086886316) message] The s ystem which generated this result transmitted reference range : 10*3/?L. The reference range was not used to interpret this result as normal/abnormal . GRAN MAT (NEUT) % 86.4 % (test code = 770-8) IMM GRAN % (test code 0.40 % = 6912350912) LYMPH % (test code = 11.7 % 736-9) MONO % (test code = 1.1 % 5905-5) EOS % (test code = 0.0 % 713-8) BASO % (test code = 0.4 % 706-2) GRAN MAT x10^3(ANC) 6.36 10*3/uL 1.88-7.09 (test code = 2463899057) IMM GRAN x10^3 (test 0.03 10*3/uL 0-0.06 code = 1340698051) LYMPH x10^3 (test code 0.86 10*3/uL 1.32-3.29 L = 731-0) MONO x10^3 (test code 0.08 10*3/uL 0.33-0.92 L = 742-7) EOS x10^3 (test code = 0.03-0.39 L 711-2) BASO x10^3 (test code 0.03 10*3/uL 0.01-0.07 = 704-7) Lab Interpretation Abnormal (test code = 81647-8) [facility] CenterVITAMIN D, [id number] 20:14:03 Test Item Value Reference Range Interpretation Comments VIT D 25OH (test code = 22 ng/mL 25-80 L 35350-3) LYNDSAY (test code = LYNDSAY) Deficiency: <20 ng/mLInsufficiency: 20-24 ng/mLOptimal: 25-80 ng/mL Lab Interpretation (test Abnormal code = 55157-9) [facility] CenterBASI METABOLIC PANEL (NA, K, CL, CO2, GLUCOSE, BUN, CREATININE, CA)2022-04-15 11:27:57 Test Item Value Reference Range Interpretation Comments NA (test code = 138 mmol/L 135-145 [id number]) K (test code = 3.9 mmol/L 3.5-5 2154131611) CL (test code = 106 mmol/L 98-108 0105330393) CO2 TOTAL (test code = 23 mmol/L 23-31 5537011061) AGAP (test code = 2-16 8123605414) BUN (test code = 10 mg/dL 7-23 6407308110) GLUCOSE (test code = 91 mg/dL 70-110 [id number]) CREATININE (test code = 0.65 mg/dL 0.5-1.04 8133045908) CALCIUM (test code = 8.1 mg/dL 8.6-10.6 L [id number]) eGFR (test code = mL/min/1.73m2 4410401941) LYNDSAY (test code = LYNDSAY) Association of [...] tests). Lab Interpretation Abnormal (test code = 17617-8) [facility] - Transthoracic echo (TTE) 2022-04-14 22:07:33 Test Item Value Reference Range Interpretation Comments Height (test code = in 7540143627) Weight (test code = lbs 6077384101) Systolic BP (test code = mmHg 5195283159) Diastolic BP (test code mmHg = 2444776549) Heart Rate (test code = bpm 1600734574) BSA (test code = 1.94 m2 6750237568) TASV (test code = 15.5 cm/s 6555403039) LVIDD (test code = 6.00 cm 2568736189) Left Ventricular End 183.0 mL Diastolic Volume by Teichholz Method (test code = 4204111) IVS (test code = 1.09 cm 9252786949) Interventricular Septum 1.09 cm Diastolic Thickness by 2D (test code = 9162423) LVPWD (test code = 0.94 cm 7812221732) PW (test code = 0.94 cm 0.6-1.9 3397856820) EF(Teich) (test code = 40.30 % 8545478585) LVIDS (test code = 4.80 cm 2418477949) Left Ventricular End 109.2 mL Systolic Volume by Teichholz Method (test code = 2579000) FS (test code = 20 % 5078253158) EF - 2D (test code = 40.30 % 55693104) LVOT diameter (test code 2.05 cm = 2516889180) LVOT area (test code = 3.30 cm2 1606395458) Ao root diam (test code 3.10 cm = 0546660605) Aortic root (test code = 3.1 cm 9138818657) Ao root annulus (test 3.1 cm code = 3276645987) LA size (test code = 4.2 cm 0640899343) LAV(MOD-sp4) (test code 64.90 mL = 4700056722) MV Peak A Evette (test code 115.7 cm/s = 2399390386) E wave decelartion time 0.15 s (test code = 7052471296) MV Peak E Evette (test code 106.2 cm/s = 9425053051) E/A ratio (test code = ratio 0972845010) LVOT stroke volume (test 48.30 cm3 code = 6477010516) LVOT peak evette (test code 78.4 cm/s = 1926642152) LVOT mn grad (test code mmHg = 6662325412) AV LVOT peak gradient mmHg (test code = 1397136690) LVOT peak VTI (test code 14.7 cm = 8211567867) LV V1 mean (test code = 51.40 cm/s 9893088730) Ao peak evette (test code = 154.7 cm/s 1449517890) AV area peak evette (test 1.7 cm2 code = 7097349018) Ao max PG (test code = 9.60 mm[Hg] 0199453592) AV peak gradient (test mmHg code = 9179167157) AV regurgitation 257.3 ms pressure 1/2 time (test code = 0492292638) AI dec slope (test code 498.10 cm/s2 = 6050554007) AI max evette (test code = 437.60 cm/s 1067950962) AI max PG (test code = 77.80 mm[Hg] 7993931066) Tapse (test code = 2.19 cm 4031553016) LA Volume Index (BP) 32.0 mL/m2 (test code = 7160679637) LA volume (BP) (test 62.1 mL code = 3564799106) LAV(MOD-sp2) (test code 52.70 mL = 9695162384) A4C EF (test code = 44.80 % 9320800226) EF(sp4-el) (test code = 45.20 % 9607596841) SV(MOD-sp4) (test code = 71.20 mL 5679561598) SV(sp4-el) (test code = 73.90 mL 3012512677) LV Diastolic Volume (BP) 146.3 mL (test code = 2973440640) A2C EF (test code = 52.00 % 2065064516) EF(MOD-bp) (test code = 46.70 % 7228066830) EF(sp2-el) (test code = 52.40 % 1856475289) LV Systolic Volume (BP) 77.9 mL (test code = 0034633690) SV(MOD-bp) (test code = 68.40 mL 7529604048) SV(MOD-sp2) (test code = 69.20 mL 5109765418) EF (test code = 7443876936) Left Ventricular Stroke 68.4 mL Volume by 2-D Biplane-MOD (test code = 7443896) Radiology Study observation (narrative) (test code = 59905-0) LYNDSAY (test code = LYNDSAY) ?Left?Ventricle: Left [...] agent used and saline contrast was performed. [facility]KEPPRA (LEVETIRACETAM)2022-04-14 16:48:36 Test Item Value Reference Range Interpretation Comments KEPPRA (test code = 12-46 L 5885806820) LYNDSAY (test code = LYNDSAY) Therapeutic range: 12-46 ?g/mL ? ?Toxic: Not well established.Test developed and characteristics determined by [facility] Laboratory Services. Lab Interpretation Abnormal (test code = 27921-9) [facility] Metabolic Panel (Na, K, Cl, CO2, Glucose, BUN, Creatinine, Ca)2022-04-14 10:50:11 Test Item Value Reference Range Interpretation Comments NA (test code = 136 mmol/L 135-145 6537439270) K (test code = 3.8 mmol/L 3.5-5 9171629746) CL (test code = 105 mmol/L 98-108 2306897986) CO2 TOTAL (test code = 25 mmol/L 23-31 7867412102) AGAP (test code = 2-16 2648209281) BUN (test code = 9 mg/dL 7-23 1352134758) GLUCOSE (test code = 101 mg/dL 70-110 4505825644) CREATININE (test code = 0.66 mg/dL 0.5-1.04 1278696915) CALCIUM (test code = 8.1 mg/dL 8.6-10.6 L 2775841081) eGFR (test code = mL/min/1.73m2 0444812612) LYNDSAY (test code = LYNDSAY) Association of [...] tests). Lab Interpretation Abnormal (test code = 04916-0) [facility], [id number] 10:50:11 Test Item Value Reference Range Interpretation Comments MAGNESIUM (test code = 8713481445) 1.9 mg/dL 1.7-2.4 Lab Interpretation (test code = Normal 99058-3) [facility] CenterThyroid Stimulating [id number] 22:21:44 Test Item Value Reference Range Interpretation Comments TSH (test code = See_Comment Biotin has been 0619214454) reported to cau se a negative bias, interpret resul ts relative to pat ient's use of biotin. [Automated mess age] The system [employer] generated this result transmitted ref erence range: 0.45 - 4 .70 mIU/L. The refe rence range was not u sed to interpret this result as normal/abnor mal. Lab Interpretation (test Normal code = 43126-7) [facility] CenterGLYCOSYLATED HEMOGLOBIN (A1C)2022-04-13 21:53:43 Test Item Value Reference Range Interpretation Comments HGB A1C (test code = 5.8 % 4-5.7 H 4548-4) LYNDSAY (test code = LYNDSAY) Reference RangesNormal: <5.7%Prediabetes: 5.7 - 6.4%Diabetes: > 6.5% Lab Interpretation (test Abnormal code = 53194-5) [facility] CenterFASTING LIPID PANEL (11517)(TOTAL CHOLESTEROL, TRIGLYCERIDES, HDL)2022-04-13 21:34:53 Test Item Value Reference Range Interpretation Comments CHOL (test code = 201 mg/dL 120-200 H 8302869053) HDL (test code = 56 mg/dL See_Comment [Automated message] 9478877267) The system [employer] generated this result transmit sherice reference range : >=50. The refer ence range was not u sed to interpret th is result as normal/abnormal . HDLC RATIO (test code = See_Comment [Au tomated message] 7943421505) The system [employer] generated this result transmit sherice reference range : <=4.5. The refe rence range was not u sed to interpret th is result as normal/abnormal . TRIG (test code = 355 mg/dL 30-170 H 2588681756) LDL CHOL (test code = 74 mg/dL See_Comment [Auto mated message] 29804-8) The system [employer] generated this result transmit sherice reference range : <=160. The refe rence range was not u sed to interpret th is result as normal/abnormal . VLDL (test code = 71 mg/dL 5-60 H 1067648160) Lab Interpretation (test Abnormal code = 59187-2) [facility] CenterTroponin I - Code [id number] 18:46:27 Test Item Value Reference Interpretation Comments Range TROPONIN I (test 0.013 ng/mL See_Comment [Automated code = 5127419020) message] The system which generated this result [...] biotin. Lab Interpretation Normal (test code = 79784-9) [facility] CenterBasi Metabolic Panel (NA, K, CL, CO2, Glucose, BUN, Creatinine, CA) - Code [id number] 18:35:07 Test Item Value Reference Range Interpretation Comments NA (test code = 136 mmol/L 135-145 4135218969) K (test code = 4.3 mmol/L 3.5-5 7821149418) CL (test code = 105 mmol/L 98-108 4990894785) CO2 TOTAL (test code = 27 mmol/L 23-31 7619792367) AGAP (test code = 2-16 4616186024) BUN (test code = 8 mg/dL 7-23 0793695989) GLUCOSE (test code = 130 mg/dL 70-110 H 2374502552) CREATININE (test code = 0.75 mg/dL 0.5-1.04 8830202759) CALCIUM (test code = 8.5 mg/dL 8.6-10.6 L 6740700489) eGFR (test code = mL/min/1.73m2 7235600440) LYNDSAY (test code = LYNDSAY) Association of [...] tests). Lab Interpretation Abnormal (test code = 68259-2) [facility] CenteraPTT - Code [id number] 18:32:46 Test Item Value Reference Range Interpretation Comments APTT Patient (test See_Comment [Automat ed code = 3173-2) message] The system which generated this result transmitted reference range : 23 - 38 Seconds . The reference range was not used to interpr et this result as normal/abnormal . LYNDSAY (test code = LYNDSAY) The [facility] patient population mean normal value for aPTT is 30 seconds. Lab Interpretation Normal (test code = 56701-0) [facility] CenterProthrombin Time / INR - Code [id number] 18:30:45 Test Item Value Reference Range Interpretation Comments PROTIME PATIENT (test See_Comment [Auto mated message] code = 5964-2) The system [employer] generated this result transmitted ref erence range: 12.0 - 1 4.7 Seconds. The re ference range was not u sed to interpret this result as normal/abnor mal. INR (test code = 6301-6) Nor mal INR <1.1; Warfarin Therap eutic range 2.0 to 3. 0 or 2.5 to 3.5, dep ending upon the indica tions. Lab Interpretation (test Normal code = 88215-8) [facility] without Diff - Code [id number] 18:23:07 Test Item Value Reference Range Interpretation Comments WBC (test code = 6690-2) See_Comment [A utomated message] The system [employer] generated this result transmit sherice reference range : 4.30 - 11.10 10*3/?L. The reference range was not used to interpret this result as normal/abnormal . RBC (test code = 789-8) See_Comment [Au tomated message] The system [employer] generated this result transmit sherice reference range [...] See_Comment H [Au tomated message] The system [employer] generated this result transmit sherice reference range : 166 - 358 10*3/?L. The reference range was not used to interpret this result as normal/abnormal . MPV (test code = 8.1 fL 9.5-12.9 L 84912-3) RDW-CV (test code = 16.1 % 12-15.5 H 788-0) RDW-SD (test code = 49.2 fL 39-49.9 99246-9) NRBC x10^3 (test code = See_Comment [Au tomated message] 7479821328) The system [email or web address] generated this result transmit sherice reference range : 10*3/?L. The reference range was not used to interpret this result as normal/abnormal . NRBC/100 WBC (test code See_Comment [Au tomated message] = 8801723163) The system [employer] generated this result transmit sherice reference range : 0.0 - 10.0 /100 WBC s. The reference r zoe was not used to interpret this result as normal/abnormal . IPF % (test code = 9177179323) Lab Interpretation (test Abnormal code = 04206-5) [facility] CenterTROPONIN [id number] 21:06:40 Test Item Value Reference Interpretation Comments Range TROPONIN I (test 0.005 ng/mL See_Comment [Automated code = 6193617391) message] The system which generated this result [...] biotin. Lab Interpretation Normal (test code = 53693-8) [facility] CenterCOMP. METABOLIC PANEL (62018)2021-11-23 20:55:42 Test Item Value Reference Range Interpretation Comments NA (test code = 137 mmol/L 135-145 7623704244) K (test code = 4.3 mmol/L 3.5-5.0 7345316428) CL (test code = 104 mmol/L 98-108 6942441255) CO2 TOTAL (test code = 22 mmol/L 23-31 L 8057921755) AGAP (test code = 2-16 9926923367) BUN (test code = 15 mg/dL 7-23 6513216336) GLUCOSE (test code = 114 mg/dL 70-110 H 6222482444) CREATININE (test code = 0.68 mg/dL 0.50-1.04 1012533383) TOTAL BILI (test code = 0.5 mg/dL 0.1-1.3 8344979859) CALCIUM (test code = 9.1 mg/dL 8.6-10.6 2189091929) T PROTEIN (test code = 7.3 g/dL 6.3-8.2 4979609286) ALBUMIN (test code = 4.4 g/dL 3.5-5.0 0022554876) ALK PHOS (test code = 243 U/L 34-122 H 9995321766) ALTv (test code = 24 U/L 5-35 2-6) AST(SGOT) (test code = 30 U/L 13-40 4331813269) eGFR (test code = mL/min/1.73m2 8660165941) LYNDSAY (test code = LYNDSAY) Association of [...] tests). Lab Interpretation Abnormal (test code = 90475-4) [facility] CenterLIPASE2022-05-07 20:55:22 Test Item Value Reference Range Interpretation Comments LIPASE (test code = 7213429813) 96 U/L 0-220 Lab Interpretation (test code = Normal 37018-2) [facility] CenterPOCT [id number] 20:46:00 Test Item Value Reference Range Interpretation Comments POCT PREG (test code = 1605) negative On board controls acceptable with present C Line (test code = 3574) POCT PREG LOT # (test code = 3575) [id number] POCT PREG TEST DATE (test 04/18/2023 code = 3576) Lab Interpretation (test code = Normal 31690-5) [facility] CenterCBC WITH [id number] 20:40:38 Test Item Value Reference Range Interpretation Comments WBC (test code = See_Comment [Automated 9211-2) message] The sy stem which generated this result transmitted reference range : 4.30 - 11.10 10*3/?L. The reference range was not used to interpret this result as normal/abnormal . RBC (test code = See_Comment [Automated 952-8) message] The sy stem which generated this [...] (test code = 53.7 fL 39.0-49.9 H 99398-3) RDW-CV (test code = 17.2 % 12.0-15.5 H 788-0) PLT (test code = See_Comment H [Automated 777-3) message] The sy stem which generated this result transmitted reference range : 166 - 358 10*3/ ?L. The reference r zoe was not used to interpret this result as normal/abnormal . MPV (test code = 8.5 fL 9.5-12.9 L 07844-9) NRBC/100 WBC (test See_Comment [Automat ed code = 9746970714) message] The system which generated this result transmitted reference range : 0.0 - 10.0 /100 WBCs. The refer ence range was not u sed to interpret th is result as normal/abnormal . NRBC x10^3 (test code <0.01 See_Comment [Auto mated = 1123314403) message] The s ystem which generated this result transmitted reference range : 10*3/?L. The reference range was not used to interpret this result as normal/abnormal . GRAN MAT (NEUT) % 53.7 % (test code = 770-8) IMM GRAN % (test code 0.90 % = 7702441734) LYMPH % (test code = 32.6 % 736-9) MONO % (test code = 10.1 % 5905-5) EOS % (test code = 1.5 % 713-8) BASO % (test code = 1.2 % 706-2) GRAN MAT x10^3(ANC) 4.98 10*3/uL 1.88-7.09 (test code = 1107608913) IMM GRAN x10^3 (test 0.08 10*3/uL 0.00-0.06 H code = 6119020113) LYMPH x10^3 (test code 3.02 10*3/uL 1.32-3.29 = 731-0) MONO x10^3 (test code 0.94 10*3/uL 0.33-0.92 H = 742-7) EOS x10^3 (test code = 0.14 10*3/uL 0.03-0.39 711-2) BASO x10^3 (test code 0.11 10*3/uL 0.01-0.07 H = 704-7) Lab Interpretation Abnormal (test code = 20872-5) [facility] CenterPOCT GLUCOSE (AUTOMATED)2021-11-23 20:17:33 Test Item Value Reference Range Interpretation Comments POCT GLU (test code = 111 mg/dL 70-110 H Notifi ed Provider 7826319866) Lab Interpretation (test Abnormal code = 57715-3) [facility] CenterPAP TEST, THINPREP, [id number] 00:00:00 Test Item Value Reference Range Interpretation Comments SOURCE: (test code = Endocervical 8001) SLIDES: (test code = 1 8011) LMP: (test code = 8021) 06/03/2021 SPECIMEN ADEQUACY: (test (NOTE) code = 52424) INTERPRETATION: (test ASCUS/EPITH. code = 55777) ABNORMALITY; SEE BELOW MANAGER DELI: (test Anusha code = 8101) CHANA Sepulveda(ASCP)[facility] PATHOLOGIST Nahid Russell, INTERPRETATION BY: (test M.D. code = 8122) LOCATION: (test code = (NOTE) 44679) CPT: (test code = 8140) (NOTE) PAP TEST, THINPREP, [id number] 00:00:00 Test Item Value Reference Range Interpretation Comments SOURCE: (test code = Endocervical 8001) SLIDES: (test code = 1 8011) LMP: (test code = 8021) 06/03/2021 SPECIMEN ADEQUACY: (test (NOTE) code = 14755) INTERPRETATION: (test ASCUS/EPITH. code = 71545) ABNORMALITY; SEE BELOW MANAGER DELI: (test Anusha code = 8101) CHANA Sepulveda(ASCP)[facility] PATHOLOGIST Nahid Russell, INTERPRETATION BY: (test M.D. code = 8122) LOCATION: (test code = (NOTE) 59681) CPT: (test code = 8140) (NOTE) PAP TEST, THINPREP, [id number] 00:00:00 Test Item Value Reference Range Interpretation Comments SOURCE: (test code = Endocervical 8001) SLIDES: (test code = 1 8011) LMP: (test code = 8021) 06/03/2021 SPECIMEN ADEQUACY: (test (NOTE) code = 32030) INTERPRETATION: (test ASCUS/EPITH. code = 15653) ABNORMALITY; SEE BELOW MANAGER DELI: (test Anusha code = 8101) CHANA Sepulveda(ASCP)[facility] PATHOLOGIST Nahid Russell, INTERPRETATION BY: (test M.D. code = 8122) LOCATION: (test code = (NOTE) 12765) CPT: (test code = 8140) (NOTE) PAP TEST, THINPREP, [id number] 00:00:00 Test Item Value Reference Range Interpretation Comments SOURCE: (test code = Endocervical 8001) SLIDES: (test code = 1 8011) LMP: (test code = 8021) 06/03/2021 SPECIMEN ADEQUACY: (test (NOTE) code = 59874) INTERPRETATION: (test ASCUS/EPITH. code = 87072) ABNORMALITY; SEE BELOW MANAGER DELI: (test Anusha code = 8101) CHANA Sepulveda(ASCP)[facility] PATHOLOGIST Nahid Russell, INTERPRETATION BY: (test M.D. code = 8122) LOCATION: (test code = (NOTE) 45234) CPT: (test code = 8140) (NOTE) HPV HIGH RISK WITH GENOTYPE, [id number] 00:00:00 Test Item Value Reference Range Interpretation Comments HPV HIGH RISK INTERP (test code = POSITIVE 00981) HPV 16 (test code = 97380) POSITIVE HPV 18 (test code = 46610) NEGATIVE HPV, HR, OTHER GENOTYPES (test code POSITIVE = 95841) HPV HIGH RISK WITH GENOTYPE, [id number] 00:00:00 Test Item Value Reference Range Interpretation Comments HPV HIGH RISK INTERP (test code = POSITIVE 48536) HPV 16 (test code = 35135) POSITIVE HPV 18 (test code = 11290) NEGATIVE HPV, HR, OTHER GENOTYPES (test code POSITIVE = 11311) HPV HIGH RISK WITH GENOTYPE, [id number] 00:00:00 Test Item Value Reference Range Interpretation Comments HPV HIGH RISK INTERP (test code = POSITIVE 72076) HPV 16 (test code = 79989) POSITIVE HPV 18 (test code = 51569) NEGATIVE HPV, HR, OTHER GENOTYPES (test code POSITIVE = 37959) HPV HIGH RISK WITH GENOTYPE, [id number] 00:00:00 Test Item Value Reference Range Interpretation Comments HPV HIGH RISK INTERP (test code = POSITIVE 48798) HPV 16 (test code = 93863) POSITIVE HPV 18 (test code = 95357) NEGATIVE HPV, HR, OTHER GENOTYPES (test code POSITIVE = 72400) [id number] 03:22:48 Test Item Value Reference Range Interpretation Comments APPEARANCE (test code = Hazy Clear A 0872207485) COLOR (test code = Yellow Yellow 7375890341) PH (test code = 4.8-8.0 8193278975) SP GRAVITY (test code = 1.003-1.030 5063437089) GLU U QUAL (test code = Normal Normal 6609850007) BLOOD (test code = Negative Negative Interfere nce from 2259948473) ascorbic acid m ay cause false neg ative results. KETONES (test code = 5 mg/dL Negative A 6180993283) PROTEIN (test code = Negative Negative 2887-8) UROBILIN (test code = 4.0 mg/dL Normal A 5566360381) BILIRUBIN (test code = Negative Negative 3199700026) NITRITE (test code = Negative Negative 6429825223) LEUK GRUPO (test code = Negative Negative 9993359869) RBC/HPF (test code = See_Comment [Autom ated message] 9558181867) The system [employer] generated this result transmitted ref erence range: 0 - 3 HP F. The reference range was not used to int erpret this result as normal/abnormal . WBC/HPF (test code = <1 See_Comment [Autom ated message] 0704281713) The system [employer] generated this result transmitted ref erence range: 0 - 5 HP F. The reference range was not used to int erpret this result as normal/abnormal . BACTERIA (test code = Few Negative A 2819848728) SQ EPITH (test code = HPF 9151225871) Lab Interpretation Abnormal (test code = 97416-3) [facility] CenterURINALYSIS2021-08-29 03:22:48 Test Item Value Reference Range Interpretation Comments APPEARANCE (test code = Hazy Clear A 7716794163) COLOR (test code = Yellow Yellow 4815887715) PH (test code = 4.8-8.0 2200780390) SP GRAVITY (test code = 1.003-1.030 3925903257) GLU U QUAL (test code = Normal Normal 7807907260) BLOOD (test code = Negative Negative 4927871424) KETONES (test code = 5 mg/dL Negative A 6535635611) PROTEIN (test code = Negative Negative 2887-8) UROBILIN (test code = 4.0 mg/dL Normal A 9931296290) BILIRUBIN (test code = Negative Negative 3191109706) NITRITE (test code = Negative Negative 2023270202) LEUK GRUPO (test code = Negative Negative 6077564542) RBC/HPF (test code = See_Comment [Autom ated message] 6172048284) The system [employer] generated this result transmit sherice reference range : 0 - 3 HPF. The refe rence range was not u sed to interpret th is result as normal/abnormal . WBC/HPF (test code = <1 See_Comment [Autom ated message] 6129827176) The system [employer] generated this result transmit sherice reference range : 0 - 5 HPF. The refe rence range was not u sed to interpret th is result as normal/abnormal . BACTERIA (test code = Few Negative A 5521350817) SQ EPITH (test code = HPF 0130875794) Lab Interpretation (test Abnormal code = 84524-8) [facility] [id number] 02:45:00 Test Item Value Reference Interpretation Comments Range TROPONIN I (test 0.002 ng/mL See_Comment [Automated code = 4984381795) message] The system which generated this result [...] biotin. Lab Interpretation Normal (test code = 38005-4) [facility] [id number] 02:45:00 Test Item Value Reference Range Interpretation Comments TROPONIN I (test code = 0.002 ng/mL See_Comment [Au tomated 8957173990) message] The sy stem which generated this result transmitted reference range : <=0.034. The reference range was not used to interpret this result as normal/abnormal . LYNDSAY (test code = LYNDSAY) Lab Interpretation Normal (test code = 25441-2) [facility] CenterN-TERMINAL [id number] 02:41:57 Test Item Value Reference Range Interpretation Comments NT-proBNP (test code 169 pg/mL See_Comment H [Autom ated = 2901980199) message] The system which generated this result transmitted reference range : <=125. The reference range was not used to interpret this result as normal/abnormal . LYNDSAY (test code = LYNDSAY) Biotin has been reported to cause a negative bias, interpret results relative to patient's use of biotin. Lab Interpretation Abnormal (test code = 09773-2) [facility] CenterN-[facility]MINAL [id number] 02:41:57 Test Item Value Reference Range Interpretation Comments NT-proBNP (test code = 169 pg/mL See_Comment H [Aut omated message] 4562612231) The system whic h generated this result transmit sherice reference range : <=125. The refe rence range was not u sed to interpret th is result as normal/abnormal . LYNDSAY (test code = LYNDSAY) Lab Interpretation (test Abnormal code = 50586-3) [facility]. METABOLIC PANEL (46103)2021-03-17 02:09:13 Test Item Value Reference Range Interpretation Comments NA (test code = 137 mmol/L 135-145 5629617416) K (test code = 4.2 mmol/L 3.5-5.0 4914983999) CL (test code = 102 mmol/L 98-108 1372459857) CO2 TOTAL (test code = 25 mmol/L 23-31 2732700087) AGAP (test code = 2-16 8094611881) BUN (test code = 18 mg/dL 7-23 0550968552) GLUCOSE (test code = 144 mg/dL 70-110 H 2254039277) CREATININE (test code = 0.77 mg/dL 0.50-1.04 5373912139) TOTAL BILI (test code = 0.4 mg/dL 0.1-1.5 2859895465) CALCIUM (test code = 8.9 mg/dL 8.6-10.6 9006683210) T PROTEIN (test code = 6.8 g/dL 6.3-8.2 4385621778) ALBUMIN (test code = 3.9 g/dL 3.5-5.0 5126832339) ALK PHOS (test code = 84 U/L 34-122 3585108332) ALTv (test code = 13 U/L 5-35 1742-6) AST(SGOT) (test code = 17 U/L 13-40 1486259433) eGFR (test code = mL/min/1.73m2 9207008786) LYNDSAY (test code = LYNDSAY) Association of [...] tests). Lab Interpretation Abnormal (test code = 01948-3) [facility] METABOLIC PANEL (79152)2021-03-17 02:09:13 Test Item Value Reference Range Interpretation Comments NA (test code = 3554880825) 137 mmol/L 135-145 K (test code = 7888395964) 4.2 mmol/L 3.5-5.0 CL (test code = 0050515502) 102 mmol/L 98-108 CO2 TOTAL (test code = 0962511278) 25 mmol/L 23-31 AGAP (test code = 0358668854) 2-16 BUN (test code = 8932396599) 18 mg/dL 7-23 GLUCOSE (test code = 8451623749) 144 mg/dL 70-110 H CREATININE (test code = 0.77 mg/dL 0.50-1.04 6484696963) TOTAL BILI (test code = 0.4 mg/dL 0.1-1.9 7346881930) CALCIUM (test code = 2444497728) 8.9 mg/dL 8.6-10.6 T PROTEIN (test code = 8836700032) 6.8 g/dL 6.3-8.2 ALBUMIN (test code = 8845549830) 3.9 g/dL 3.5-5.0 ALK PHOS (test code = 1952959783) 84 U/L 34-122 ALTv (test code = 1742-6) 13 U/L 5-35 AST(SGOT) (test code = 1734315450) 17 U/L 13-40 eGFR (test code = 6875626048) mL/min/1.73m2 LYNDSAY (test code = LYNDSAY) Lab Interpretation (test code = Abnormal 98102-6) [facility] WITH [id number] 01:56:33 Test Item Value Reference Range Interpretation Comments WBC (test code = See_Comment H [Automated 3833-2) message] The sy stem which generated this result transmitted reference range : 4.30 - 11.10 10*3/?L. The reference range was not used to interpret this result as normal/abnormal . RBC (test code = See_Comment [Automated 694-8) message] The sy stem which generated this [...] (test code = 55.5 fL 39.0-49.9 H 89349-4) RDW-CV (test code = 18.9 % 12.0-15.5 H 788-0) PLT (test code = See_Comment H [Automated 777-3) message] The sy stem which generated this result transmitted reference range : 166 - 358 10*3/ ?L. The reference r zoe was not used to interpret this result as normal/abnormal . MPV (test code = 8.2 fL 9.5-12.9 L 44524-2) NRBC/100 WBC (test See_Comment [Automat ed code = 6250189121) message] The system which generated this result transmitted reference range : 0.0 - 10.0 /100 WBCs. The refer ence range was not u sed to interpret th is result as normal/abnormal . NRBC x10^3 (test code <0.01 See_Comment [Auto mated = 1876747623) message] The s ystem which generated this result transmitted reference range : 10*3/?L. The reference range was not used to interpret this result as normal/abnormal . GRAN MAT (NEUT) % 61.7 % (test code = 770-8) IMM GRAN % (test code 0.80 % = 9455203330) LYMPH % (test code = 28.5 % 736-9) MONO % (test code = 6.3 % 5905-5) EOS % (test code = 1.8 % 713-8) BASO % (test code = 0.9 % 706-2) GRAN MAT x10^3(ANC) 7.31 10*3/uL 1.88-7.09 H (test code = 9797162011) IMM GRAN x10^3 (test 0.09 10*3/uL 0.00-0.06 H code = 8157271524) LYMPH x10^3 (test code 3.38 10*3/uL 1.32-3.29 H = 731-0) MONO x10^3 (test code 0.75 10*3/uL 0.33-0.92 = 742-7) EOS x10^3 (test code = 0.21 10*3/uL 0.03-0.39 711-2) BASO x10^3 (test code 0.11 10*3/uL 0.01-0.07 H = 704-7) Lab Interpretation Abnormal (test code = 10628-7) [facility] WITH [id number] 01:56:33 Test Item Value Reference Range Interpretation [...] (test code = 55.5 fL 39.0-49.9 H 32438-0) RDW-CV (test code = 18.9 % 12.0-15.5 H 788-0) PLT (test code = See_Comment H [Automated 777-3) message] The sy stem which generated this result transmitted reference range : 166 - 358 10*3/ ?L. The reference r zoe was not used to interpret this result as normal/abnormal . MPV (test code = 8.2 fL 9.5-12.9 L 47325-7) NRBC/100 WBC (test See_Comment [Automat ed code = 2252033473) message] The system which generated this result transmitted reference range : 0.0 - 10.0 /100 WBCs. The refer ence range was not u sed to interpret th is result as normal/abnormal . NRBC x10^3 (test code <0.01 See_Comment [Auto mated = 8128542722) message] The s ystem which generated this result transmitted reference range : 10*3/?L. The reference range was not used to interpret this result as normal/abnormal . GRAN MAT (NEUT) % 61.7 % (test code = 770-8) IMM GRAN % (test code 0.80 % = 2907982801) LYMPH % (test code = 28.5 % 736-9) MONO % (test code = 6.3 % 5905-5) EOS % (test code = 1.8 % 713-8) BASO % (test code = 0.9 % 706-2) GRAN MAT x10^3(ANC) 7.31 10*3/uL 1.88-7.09 H (test code = 6652453635) IMM GRAN x10^3 (test 0.09 10*3/uL 0.00-0.06 H code = 9225015438) LYMPH x10^3 (test code 3.38 10*3/uL 1.32-3.29 H = 731-0) MONO x10^3 (test code 0.75 10*3/uL 0.33-0.92 = 742-7) EOS x10^3 (test code = 0.21 10*3/uL 0.03-0.39 711-2) BASO x10^3 (test code 0.11 10*3/uL 0.01-0.07 H = 704-7) Lab Interpretation Abnormal (test code = 76842-4) [facility]17 01:38:12 Test Item Value Reference Range Interpretation Comments SARS-CoV-2 Rapid ID NOW Not Detected Not Detected (test code = 77171-9) LYNDSAY (test code = LYNDSAY) ID NOW COVID-19 Assay is an isothermal nucleic acid amplification test intended for the qualitative detection of nucleic acid from SARS-CoV-2 viral RNA in nasopharyngeal (SUPERINTENDENT DRILLING) specimens. It is used under Emergency Use [...] indicated. Lab Interpretation Normal (test code = 20972-9) [facility]-19 (ID NOW RAPID TESTING)2021-03-17 01:38:12 Test Item Value Reference Range Interpretation Comments SARS-CoV-2 Rapid ID NOW (test Not Detected Not Detected code = 81906-9) LYNDSAY (test code = LYNDSAY) Lab Interpretation (test code = Normal 31254-0) [facility]-19 (ID NOW RAPID TESTING)2021-02-19 17:42:45 Test Item Value Reference Range Interpretation Comments SARS-CoV-2 Rapid ID NOW Not Detected Not Detected (test code = 06723-6) LYNDSAY (test code = LYNDSAY) ID NOW COVID-19 Assay is an isothermal nucleic acid amplification test intended for the qualitative detection of nucleic acid from SARS-CoV-2 viral RNA in nasopharyngeal (SUPERINTENDENT DRILLING) specimens. It is used under Emergency Use [...] indicated. Lab Interpretation Normal (test code = 10693-3) [facility] [id number] 17:24:55Thickening of the gastric antrum and duodenal [...] 02/19/2021 12:26 PM CDT Patient name: EUSEBIA ONTIVEROSB: 1970 51 years [...] nodularity of the left adrenal gland.RL: [facility] [id number] 17:03:40 Test Item Value Reference Range Interpretation Comments APPEARANCE (test code = Hazy Clear A 3536537223) COLOR (test code = Mabel Yellow A 5701246220) PH (test code = 4.8-8.0 7937798426) SP GRAVITY (test code = 1.003-1.030 H 6684814473) GLU U QUAL (test code = Normal Normal 3924864569) BLOOD (test code = Negative Negative 3442435894) KETONES (test code = 5 mg/dL Negative A 4536598342) PROTEIN (test code = 30 mg/dL Negative A 2887-8) UROBILIN (test code = 4.0 mg/dL Normal A 8879559646) BILIRUBIN (test code = 4 mg/dL Negative A 4304744018) NITRITE (test code = Negative Negative 2488876322) LEUK GRUPO (test code = Negative Negative 0691471002) RBC/HPF (test code = See_Comment H [Autom ated message] 7176138953) The system [employer] generated this result transmit sherice reference range : 0 - 3 HPF. The refe rence range was not u sed to interpret th is result as normal/abnormal . WBC/HPF (test code = See_Comment H [Autom ated message] 0013913655) The system [employer] generated this result transmit sherice reference range : 0 - 5 HPF. The refe rence range was not u sed to interpret th is result as normal/abnormal . BACTERIA (test code = Few Negative A 9515470677) MUCOUS (test code = Moderate Negative LPF A 8912756574) SQ EPITH (test code = HPF 2077153801) CA OXALATE (test code = See_Comment H [Au tomated message] 2986262167) The system [employer] generated this result transmit sherice reference range : <=1 HPF. The refere nce range was not u sed to interpret th is result as normal/abnormal . Ictotest (test code = Negative 4867545447) Lab Interpretation (test Abnormal code = 18620-6) [facility] [id number] 16:34:55 Test Item Value Reference Range Interpretation Comments NA (test code = 139 mmol/L 135-145 5735763832) K (test code = 4.3 mmol/L 3.5-5.0 4771991744) CL (test code = 105 mmol/L 98-108 1160515666) CO2 TOTAL (test code 26 mmol/L 23-31 = 8749362268) AGAP (test code = 2-16 6958390349) BUN (test code = 11 mg/dL 7-23 6700326769) GLUCOSE (test code = 95 mg/dL 70-110 8108523745) CREATININE (test code 0.70 mg/dL 0.50-1.04 = 3973478511) TOTAL BILI (test code 0.6 mg/dL 0.1-1.1 = 3923299193) CALCIUM (test code = 8.9 mg/dL 8.6-10.6 4691411918) T PROTEIN (test code 7.7 g/dL 6.3-8.2 = 7280886644) ALBUMIN (test code = 4.1 g/dL 3.5-5.0 6922454478) ALK PHOS (test code = 79 U/L 34-122 2691049063) ALTv (test code = 10 U/L 5-35 2-6) AST(SGOT) (test code 22 U/L 13-40 = 9872814393) eGFR (test code = mL/min/1.73m2 2510666610) LYNDSAY (test code = LYNDSAY) Association of [...] urine or abnormalities in imaging tests). [facility], [id number] 16:34:14 Test Item Value Reference Range Interpretation Comments LIPASE (test code = 6122889515) 45 U/L 0-220 Lab Interpretation (test code = Normal 45433-7) [facility] [id number] 16:21:12 Test Item Value Reference Range Interpretation [...] (test code = 54.4 fL 39.0-49.9 H 92930-1) RDW-CV (test code = 18.3 % 12.0-15.5 H 788-0) PLT (test code = See_Comment H [Automated 777-3) message] The sy stem which generated this result transmitted reference range : 166 - 358 10*3/ ?L. The reference r zoe was not used to interpret this result as normal/abnormal . MPV (test code = 8.5 fL 9.5-12.9 L 60024-4) NRBC/100 WBC (test See_Comment [Automat ed code = 8277217400) message] The system which generated this result transmitted reference range : 0.0 - 10.0 /100 WBCs. The refer ence range was not u sed to interpret th is result as normal/abnormal . NRBC x10^3 (test code <0.01 See_Comment [Auto mated = 6614598570) message] The s ystem which generated this result transmitted reference range : 10*3/?L. The reference range was not used to interpret this result as normal/abnormal . GRAN MAT (NEUT) % 78.3 % (test code = 770-8) IMM GRAN % (test code 0.40 % = 7704759152) LYMPH % (test code = 15.4 % 736-9) MONO % (test code = 4.8 % 5905-5) EOS % (test code = 0.1 % 713-8) BASO % (test code = 1.0 % 706-2) GRAN MAT x10^3(ANC) 7.15 10*3/uL 1.88-7.09 H (test code = 9635907717) IMM GRAN x10^3 (test 0.04 10*3/uL 0.00-0.06 code = 0458651312) LYMPH x10^3 (test code 1.41 10*3/uL 1.32-3.29 = 731-0) MONO x10^3 (test code 0.44 10*3/uL 0.33-0.92 = 742-7) EOS x10^3 (test code = <0.03 0.03-0.39 L 711-2) BASO x10^3 (test code 0.09 10*3/uL 0.01-0.07 H = 704-7) Lab Interpretation Abnormal (test code = 09527-4) [facility]
[2023-01-09] MEDS ORDERED: MORPHINE 4 MG/ML SYR ONE ×2 (09:28→11:53)
[2023-01-09] MEDS ORDERED: ONDANSETRON 4 MG/2 ML VIAL ONE ×2 (09:28→11:53)
[2023-01-09] MEDS ORDERED: NA CHLORIDE 0.9% 1,000 ML ONE (09:28)
[2023-01-09 09:42] LABS: Absolute Lymphocytes (CBC) 1.4 K/uL (0.7-4.9); Hematocrit 35.5 % (36.0-45.0); Lymphocytes % 16.2 % (15.3-44.8); MCV 81.4 fL (80-100); MPV 6.3 fL (7.6-11.3); RBC Red Blood Cell Count 4.36 M/uL (3.86-4.86)
[2023-01-09 10:06] LABS: Albumin 2.9 g/dL (3.4-5.0); Bilirubin Total 0.2 mg/dL (0.2-1.0); Potassium 4.4 mEq/L (3.5-5.1); Protein, Total 6.2 g/dL (6.4-8.2)
--- NOTE | 2023-01-09 10:43 | RAD REPORT ---
EXAM DESCRIPTION: CT - Abdomen Pelvis W Contrast - 01/09/2023 10:17 am CLINICAL HISTORY: ABD PAIN COMPARISON: Abdomen Pelvis W Contrast dated 09/25/2021; Abdomen Pelvis W Contrast dated 09/10/2021; Abdomen Pelvis W Contrast dated 11/14/2020; Abdomen Pelvis W Contrast dated 07/09/2020 TECHNIQUE: Thin cut axial CT imaging of the abdomen and pelvis was performed following intravenous a dministration of 100 mL Isovue 300. Multiplanar reformats were generated and reviewed. All CT scans are performed using dose optimization technique as appropriate and may include automated exposure control or mA/KV adjustment according to patient size. FINDINGS: No suspicious findings in the lung bases. The liver, spleen, and pancreas show no suspicious findings. Status post cholecystectomy. Symmetric renal function is seen with no hydronephrosis or suspicious renal mass. No dilated bowel loops or bowel wall thickening. No free air, or free fluid. Mild sigmoid diverticulo sis, with an inflamed posteriorly directed proximal sigmoid diverticulum, with inflammatory fat stran ding which extends adjacent to the proximal left external iliac vessels. No evidence of complications . No hernia, mass or bulky lymphadenopathy. The urinary bladder is without significant finding. No suspicious bony findings. IMPRESSION: Findings of early acute proximal sigmoid diverticulitis. The findings were communicated to Jones Parham on 01/09/2023 at 10:37 hours.
[2023-01-09 10:51] LABS: Anisocytosis 1+; Blood Morphology Comment NOTED (NOT SEEN); Macrocytosis 1+; Platelet Estimate ADEQ; White Blood Cell Scan OK (OK)
[2023-01-09] MEDS ORDERED: CIPROFLOXACIN 400mg IV 400 MG/200 ML BAG IV ONE (10:54)
[2023-01-09] MEDS ORDERED: METRONIDAZOLE 500mg IVPB 500 MG/100 ML BAG IV ONE (10:54)
--- NOTE | 2023-01-09 13:49 | ER ---
Nurse's Notes [facility] Name: Heather Coon Age: 52 yrs Sex: Female : 1970 Arrival Date: 01/09/2023 Time: 08:50 Bed 8 Private MD: Diagnosis: Diverticulosis of large intestine without perforation or abscess without bleeding Presentation: 01/09 08:40 Chief complaint: EMS states: patient called for nausea and vomiting since midnight, ko1 also has weakness. She also states she felt like she couldn't breathe last night. Coronavirus screen: At this time, the client does not indicate any symptoms associated with coronavirus-19. Ebola Screen: No symptoms or risks identified at this time. Initial Sepsis Screen: Does the patient meet any 2 criteria? No. Patient's initial sepsis screen is negative. Does the patient have a suspected source of infection? No. Patient's initial sepsis screen is negative. Risk Assessment: Do you want to hurt yourself or someone else? Patient reports no desire to harm self or others. Onset of symptoms was January 09, 2023. 08:40 Method Of Arrival: EMS: [facility] ko1 08:40 Acuity: ANDER 3 ko1 08:40 Care prior to arrival: IV initiated. 20 GA, in the right forearm, Glucose check: 182. ko1 Triage Assessment: 08:40 Pain: Complains of pain in lumbar area and abdomen. ko1 09:04 General: Appears in no apparent distress. comfortable, Behavior is calm, cooperative, ko1 appropriate for age. Historical: - Allergies: 09:04 fluoxetine; ko1 09:04 Green Tea; ko1 09:04 Keppra; not an allergy, pt reports continued seizures while taking medication; ko1 - PMHx: 09:04 Anxiety; Bipolar disorder; Cancer-Cervical; Chronic obstructive lung disease; Chronic ko1 pain; Congestive heart failure; Depression; Diverticulitis; Herniated Back Disc; Hypertension; intestinal mass; Myocardial infarction; pt reports hx of seizures; Spastic Muscles; stroke; - PSHx: 09:04 cervical fusion; Cholecystectomy; foot; Tonsillectomy; ko1 - Immunization history:: Adult Immunizations unknown. - Social history:: Smoking status: Patient reports the use of cigarette tobacco products, smokes one pack cigarettes per day. - Family history:: not pertinent. - Hospitalizations: : No recent hospitalization is reported. Screenin:00 [facility] ED Fall Risk Assessment (Adult) History of falling in the last 3 months, ko1 including since admission No falls in past 3 months (0 pts) Confusion or Disorientation No (0 pts) Intoxicated or Sedated No (0 pts) Impaired Gait No (0 pts) Mobility Assist Device Used No (0 pt) Altered Elimination No (0 pt) Score/Fall Risk Level 0 - 2 = Low Risk Oriented to surroundings, Maintained a safe environment, Educated pt \T\ family on fall prevention, incl call for assistance when getting out of bed, Assessed \T\ reinforced patient's understanding of fall precautions, Provided non-skid footwear, Hourly rounding (assess needs \T\ fall precautionary measures) done, Used ambulatory aids as needed (educated on \T\ assisted with), Used gait belt as appropriate. Abuse screen: Denies threats or abuse. Denies injuries from another. Nutritional screening: No deficits noted. Tuberculosis screening: No symptoms or risk factors identified. Assessment: 09:00 Neuro: No deficits noted. Cardiovascular: No deficits noted. Respiratory: No deficits ko1 noted. GI: Reports nausea, vomiting. : No deficits noted. EENT: No deficits noted. Derm: No deficits noted. Musculoskeletal: Reports weakness in left leg. 11:57 Reassessment: c/o abdominal pain. See MAR for orders. ld1 Vital Signs: 08:40 BP 135 / 88; Pulse 94; Resp 18; Temp 98.8; Pulse Ox 98% on R/A; ko1 09:19 BP 147 / 102; Pulse 109; Resp 18; Pulse Ox 100% on R/A; ld1 09:44 BP 115 / 77; Pulse 103; Resp 16; Pulse Ox 97% ; ko1 11:18 BP 119 / 76; Pulse 94; Resp 18; Pulse Ox 97% on R/A; ld1 11:57 BP 123 / 74; Pulse 92; Resp 18; Pulse Ox 99% on R/A; Pain 9/10; ld1 14:11 BP 132 / 95; Pulse 98; Resp 18; Temp 98; Pulse Ox 99% ; Pain 2/10; ko1 11:57 Pain Scale: Adult ld1 14:11 Pain Scale: Adult ko1 ED Course: 08:40 Arm band placed on right wrist. Patient placed in an exam room, on a stretcher, on ko1 monitor and storage bin tender, on pulse oximetry, Patient notified of wait time. 09:00 Patient arrived in ED. ko1 09:00 Ayanna Willis, BETH is Primary Nurse. ko1 09:00 Patient has correct armband on for positive identification. Bed in low position. Call ko1 light in reach. Side rails up X2. Client placed on continuous cardiac and pulse oximetry monitoring. NIBP monitoring applied. monitor and storage bin tender on. Door closed. Noise minimized. Lights dimmed. Warm blanket given. 09:00 Maintain EMS IV. Dressing intact. Good blood return noted. Site clean \T\ dry. Gauge \T\ ko 1 site: 20g right FA. Patient maintains SpO2 saturation greater than 95% on room air. 09:03 Triage completed. ko1 09:04 Jones Parham MD is Attending Physician. rn 09:32 CBC with Diff Sent. ko1 09:32 CMP Sent. ko1 09:32 Lipase Sent. ko1 09:37 Flu Sent. ko1 10:19 CT Abd/Pelvis - IV Contrast Only In Process Unspecified. EDMS Administered Medications: 09:33 Drug: NS 0.9% IV 1000 ml Route: IV; Rate: 1 bolus; Site: right forearm; ko1 09:33 Drug: Ondansetron IVP 4 mg Route: IVP; Site: right forearm; ko1 09:33 Drug: morphine IVP or IV 4 mg Route: IVP; Infused Over: 4 mins; Site: right forearm; ko1 11:14 Drug: metroNIDAZOLE IVPB 500 mg Volume: 100 ml; Route: IVPB; Rate: 200 ml/hr; Infused ld1 Over: 30 mins; Site: right forearm; 11:56 Drug: Ciprofloxacin IVPB 400 mg Volume: 200 ml; Route: IVPB; Infused Over: 60 mins; ld1 Site: right forearm; 11:56 Drug: morphine IVP or IV 4 mg Route: IVP; Infused Over: 4 mins; Site: right forearm; ld1 11:56 Drug: Ondansetron IVP 4 mg Route: IVP; Site: right forearm; ld1 Medication: 09:00 VIS not applicable for this client. ko1 Outcome: 13:48 Discharge ordered by . rn 14:12 Patient left the ED. ko1 Signatures: Dispatcher [employer] EDMS Jones Parham MD MD rn Randee Fisher RN RN ld1 Ayanna Willis RN RN ko1
--- NOTE | 2023-01-09 13:49 | EDPHYS ---
Physician Documentation [facility] Name: Heather Coon Age: 52 yrs Sex: Female : 1970 Arrival Date: 01/09/2023 Time: 08:50 Bed 8 Private MD: ED Physician Jones Parham HPI: 01/09 09:18 This 52 yrs old Female presents to ER via EMS with complaints of abd pain. rn 09:18 The patient presents with abdominal pain in the left lower quadrant. Onset: The rn symptoms/episode began/occurred 3 day(s) ago. The symptoms do not radiate. Associated signs and symptoms: Pertinent positives: nausea and vomiting, Pertinent negatives: blood in stools, chest pain, fever, shortness of breath. The symptoms are described as achy, crampy. Historical: - Allergies: 09:04 fluoxetine; ko1 09:04 Green Tea; ko1 09:04 Keppra; not an allergy, pt reports continued seizures while taking medication; ko1 - PMHx: 09:04 Anxiety; Bipolar disorder; Cancer-Cervical; Chronic obstructive lung disease; Chronic ko1 pain; Congestive heart failure; Depression; Diverticulitis; Herniated Back Disc; Hypertension; intestinal mass; Myocardial infarction; pt reports hx of seizures; Spastic Muscles; stroke; - PSHx: 09:04 cervical fusion; Cholecystectomy; foot; Tonsillectomy; ko1 - Immunization history:: Adult Immunizations unknown. - Social history:: Smoking status: Patient reports the use of cigarette tobacco products, smokes one pack cigarettes per day. - Family history:: not pertinent. - Hospitalizations: : No recent hospitalization is reported. ROS: 09:20 Constitutional: Negative for fever, chills, and weight loss, Eyes: Negative for injury, rn pain, redness, and discharge, Neck: Negative for injury, pain, and swelling, Cardiovascular: Negative for chest pain, palpitations, and edema, Respiratory: Negative for shortness of breath, wheezing, and pleuritic chest pain, Abdomen/GI: +abd pain, +nausea MS/Extremity: Negative for injury and deformity, Skin: Negative for injury, rash, and discoloration, Neuro: Negative for headache,numbness, tingling, and seizure. Exam: 09:20 Constitutional: This is a well developed, well nourished patient who is awake, alert, rn laying on her left side, appears in pain Head/Face: Normocephalic, atraumatic. ENT: dry mm Cardiovascular: Tachycardic, regular. No pulse deficits. Respiratory: No increased work of breathing, no retractions or nasal flaring. Abdomen/GI: soft, + mid and LLQ tenderness, no rebound Skin: Warm, dry MS/ Extremity: Pulses equal, no cyanosis. Neuro: Awake and alert, GCS 15 Vital Signs: 08:40 BP 135 / 88; Pulse 94; Resp 18; Temp 98.8; Pulse Ox 98% on R/A; ko1 09:19 BP 147 / 102; Pulse 109; Resp 18; Pulse Ox 100% on R/A; ld1 09:44 BP 115 / 77; Pulse 103; Resp 16; Pulse Ox 97% ; ko1 11:18 BP 119 / 76; Pulse 94; Resp 18; Pulse Ox 97% on R/A; ld1 11:57 BP 123 / 74; Pulse 92; Resp 18; Pulse Ox 99% on R/A; Pain 9/10; ld1 14:11 BP 132 / 95; Pulse 98; Resp 18; Temp 98; Pulse Ox 99% ; Pain 2/10; ko1 11:57 Pain Scale: Adult ld1 14:11 Pain Scale: Adult ko1 MDM: 09:04 Patient medically screened. rn 13:47 Differential diagnosis: bowel obstruction, diverticulitis, non-specific abd pain, rn Peptic Ulcer Disease, Ureterolithiasis. Data reviewed: vital signs, nurses notes, lab test result(s), radiologic studies, CT scan, and as a result, I will discharge patient. Consideration of Admission/Observation Escalation of care including admission/observation considered. Counseling: I had a detailed discussion with the patient and/or guardian regarding: the historical points, exam findings, and any diagnostic results supporting the discharge/admit diagnosis, lab results, radiology results, the need for outpatient follow up, to return to the emergency department if symptoms worsen or persist or if there are any questions or concerns that arise at home. Special discussion: Based on the patient's Hx, exam, and Dx evaluation, there is no indication for emergent surgery or inpatient Tx. It is understood by the patient/guardian that if the Sx's persist or worsen they need to return immediately for re-evaluation. I discussed with the patient/guardian in detail that at this point there is no indication for admission to the hospital. It is understood, however, that if the symptoms persist or worsen the patient needs to return immediately for re-evaluation. Based on the history and exam findings, there is no indication for further emergent testing or inpatient evaluation. I discussed with the patient/guardian the need to see the roller mechanic for further evaluation of the symptoms. 01/09 09:12 Order name: CBC with Diff; Complete Time: 10:52 rn 01/09 09:12 Order name: CMP; Complete Time: 10:39 rn 01/09 09:12 Order name: Lipase; Complete Time: 10:39 rn 01/09 09:20 Order name: Flu; Complete Time: : rn 01/09 10:52 Order name: CBC Smear Scan; Complete Time: 10:52 EDMS 01/09 09:12 Order name: CT Abd/Pelvis - IV Contrast Only; Complete Time: 10: rn 01/09 09:12 Order name: IV Saline Lock; Complete Time: 09:32 rn 01/09 09:12 Order name: Labs collected and sent; Complete Time: 09:32 rn Administered Medications: 09:33 Drug: NS 0.9% IV 1000 ml Route: IV; Rate: 1 bolus; Site: right forearm; ko1 09:33 Drug: Ondansetron IVP 4 mg Route: IVP; Site: right forearm; ko1 09:33 Drug: morphine IVP or IV 4 mg Route: IVP; Infused Over: 4 mins; Site: right forearm; ko1 11:14 Drug: metroNIDAZOLE IVPB 500 mg Volume: 100 ml; Route: IVPB; Rate: 200 ml/hr; Infused ld1 Over: 30 mins; Site: right forearm; 11:56 Drug: Ciprofloxacin IVPB 400 mg Volume: 200 ml; Route: IVPB; Infused Over: 60 mins; ld1 Site: right forearm; 11:56 Drug: morphine IVP or IV 4 mg Route: IVP; Infused Over: 4 mins; Site: right forearm; ld1 11:56 Drug: Ondansetron IVP 4 mg Route: IVP; Site: right forearm; ld1 Disposition Summary: 01/09/23 13:48 Discharge Ordered Location: Home rn Problem: new rn Symptoms: have improved rn Condition: Stable rn Diagnosis - Diverticulosis of large intestine without perforation or abscess without bleeding rn Followup: rn - With: Private Physician - When: As needed - Reason: Recheck today's complaints, Re-evaluation by your physician Discharge Instructions: - Discharge Summary Sheet rn - Diverticulitis rn Forms: - Medication Reconciliation Form rn - Thank You Letter rn - 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 - Prescription Opioid Use rn Prescriptions: - ondansetron 4 mg Oral Tablet,disintegrating - take 1 tablet by ORAL route every 8 hours As needed; 15 tablet; Refills: 0, rn Product Selection Permitted - Flagyl 500 mg Oral Tablet - take 1 tablet by ORAL route every 8 hours for 10 days; 30 tablet; Refills: 0, rn Product Selection Permitted - Cipro 500 mg Oral Tablet - take 1 tablet by ORAL route every 12 hours for 10 days; 20 tablet; Refills: 0, rn Product Selection Permitted - Tramadol 50 mg Oral Tablet - take 1 tablet by ORAL route every 8 hours as needed; 12 tablet; Refills: 0, rn Product Selection Permitted Signatures: Dispatcher [employer] Jones Larose MD MD rn Randee Fisher RN RN ld1 Ayanna Willis RN RN ko1
[2023-01-09 14:34] VITALS: O2SAT 99
[2023-01-09 14:36] VITALS: BP 132/95; TEMP 98
== END 2023-01-09 14:12 | disposition home or self-care (01) ==
LOC: ER 08:50
DX: K57.32 Diverticulitis of large intestine without perforation or abscess without bleeding (principal)
CPT/HCPCS: 36415; 74177; 80053; 83690; 85025; 87804; 96374; 96375; 99285; J0744; J2405; J7030; Q9967

== ENCOUNTER 2023-02-04 11:29 | Emergency (ER) | payer OTHER, SELFPAY ==
--- OUTSIDE RECORDS SUMMARY | 2023-02-04 11:42 | XMS REPORT | Continuity of Care Document ---
:1970 Author Organization [facility] t Address [address] [facility] [place] [address] Care Team Providers Name Role Phone Aneta Silva Primary Care Physician [phone] Alfonso MULLIGAN Attending Clinician Unavailable Alfonso Lopez Attending Clinician RITCHIE WARREN Attending Clinician Unavailable Ritchie Warren MD Attending Clinician Shy Beckman RN Attending Clinician Halima Mendoza MD Attending Clinician Jen Yepez MD Attending Clinician Parrish Diane MD Attending Clinician PARRISH DIANE Attending Clinician Unavailable LORENZA HER Attending Clinician Unavailable Sav Rondon MD Attending Clinician Lorenza Her MD Attending Clinician Nicole NURSE CARE MANAGER, Maria Teresa Attending Clinician CHANTEL MATTHEWS Attending Clinician Unavailable CHANTEL MATTHEWS Attending Clinician Unavailable Brandyn Mcfarlane MD Attending Clinician SELINA MARTINES Attending Clinician Unavailable Sam Sapna Freya Attending Clinician Glory Esteves MD Attending Clinician [phone] Selina Martines MD Attending Clinician Vaccine, [place] [facility] Attending Clinician Unavailable Jose Frederick MD Attending Clinician JOSE FREDERICK Attending Clinician Unavailable NICHELLE ALLISON Attending Clinician Unavailable Nichelle Bishop Attending Clinician Doctor Unassigned, Eugenio Saenz Attending Clinician Unavailable Miky Nava RN Attending [...] Date Seizure Seizure Disease [facility]02 [facility] [place] 00:00: Medical 00 Center Cardiomyop Cardiomyop Disease Active U nivers athy athy 1-13 ity of 00:00: [place] 00 Medical Branch NSVT NSVT Disease Active [...] artery 1-12 ity of disease disease 00:00: [place] involving involving 00 Medi kwame [place] coronary coronary artery of artery of [place] heart heart without without angina angina pectoris pectoris Snores Snores Disease Active Univers 1-12 ity of 00:00: [place] 00 Medical Branch Cigarette Cigarette Disease Active Uni vers smoker smoker 1-12 ity of 00:00: [place] 00 Medical Branch Primary Primary Disease Active Univers hypertensi hypertensi 1-12 it y of on on 00:00: [place] 00 Medical Branch Other Other Disease Active Univers hyperlipid hyperlipid 1-12 it y of emia emia 00:00: [place] 00 Medical Branch Coronary Coronary Disease Active Unive rs artery artery 1-12 ity of disease disease 00:00: [place] involving involving 00 Medi kwame [place] coronary coronary artery of artery of [place] heart heart without without angina angina pectoris [...] Stop Date Source Natural mother Alcohol abuse [facility] Natural mother Cancer [facility] Natural mother Diabetes [facility] Natural mother Heart disease [facility] Natural mother Hyperlipidemia [facility] Natural mother Kidney disease [facility] Natural mother Stroke [facility] Paternal uncle Diabetes [facility] Social History Social Habit Start Date Stop Date Quantity Comments Source History SDOH Social Unive rsity of [facility] Med ical Together Branch History SDOH Social Unive rsity of [facility] History SDOH Social Unive rsity of [facility] Medical Membership Branch History SDOH Social Unive rsity of [facility] Medical Meetings Branch History of tobacco Cigarette Smoker [facility] History SDOH [facility] Alcohol Frequency Medical Center History SDOH [facility] Alcohol Std Drinks Medica Center History SDOH [facility] Alcohol Binge Medical [address] Exposure to 2022-12-01 2022-12-11 Not sure University of SARS-CoV-2 (event) 00:00:00 08:54:00 [facility] Cigarettes smoked 2022-08-02 2022-08-02 [facility] [...] Social 2022-08-01 2022-08-01 5 Unive rsity of AddressHealth Phone 00:00:00 00:00:00 [place] M edical Branch History SDOH Social 2022-08-01 2022-08-01 5 Unive rsity of Connections Living 00:00:00 00:00:00 [place] [facility] History SDOH 2022-08-01 2022-08-01 0 University o f Physical Activity 00:00:00 00:00:00 [facility] edical DPW Branch History SDOH 2022-08-01 2022-08-01 0 University o f Physical Activity 00:00:00 00:00:00 [facility] edical MPS Branch History SDOH 2022-08-01 2022-08-01 3 University o f Financial 00:00:00 00:00:00 [place] [facility] History SDOH Food 2022-08-01 2022-08-01 1 Univers ity of Worry 00:00:00 00:00:00 [place] [facility] History SDOH Food 2022-08-01 2022-08-01 1 Univers ity of Scarcity 00:00:00 00:00:00 [place] [facility] History SDOH 2022-08-01 2022-08-01 2 University o f Transport Med 00:00:00 00:00:00 [place] Medic al Branch History SDNY 2022-08-01 2022-08-01 2 University o f Transport Non-Med 00:00:00 00:00:00 [facility] edical Branch Cigarette 2022-07-31 2022-07-31 University of pack-years 00:00:00 00:00:00 [facility] Education 2022-07-31 2022-07-31 14 University of 00:00:00 00:00:00 [facility] Sex Ass[birth year] At [birth year] [facility] 00:00:00 00:00:00 [facility] Smoking Status Start Date Stop Date Source Smokes tobacco daily 2022-08-02 00:00:00 [facility] Medications Ordered Filled Start Stop Current Ordering Indication Dosage Frequency Signature Comments Components Source Medication Medication Date Date Medication? Clinician (SIG) Name Name lacosamide 2022- No 200mg 200 mg, IV Univers (VIMPAT) 5-25 05-25 Piggyback, ity of 200 mg in 19:45: 19:57 [place]CE[place] 1 [place] NaCl 0.9% 00 :00 dose, On Medica l (NS) 50 mL [facility] Branch piggyback 12/11/22 at 1445, Administer over 30 Minutes, 50 mL
F aculty member approving Restricted medication : Alfonso MULLIGAN ketorolac 2022- No 15mg 15 mg, Unive rs (TORADOL) 12-11 05-25 Slow IV ity of injection 18:15: 17:25 Push, [place] 15 mg 00 :00 ONCE, 1 Medical dose, On Branch [facility] 12/11/22 at 1315, MICHAEL iopamidol 2022- No [id number] 80mL 80 mL, U nivers (ISOVUE 12-11-25 Intravenou ity o f 370-500 mL) 16:30: 16:27 s, ONCE, 1 [place] injection 00 :00 dose, On Medica l 80 mL [facility] Branch 12/11/22 at 1130, Routine nitroglycer 2022- No .5[in_u 0.5 Inch, Univers in (NITROL) 12-11-25 s] Transderma i ty of 2 % 15:30: 14:31 l (Apply [place] ointment 00 :00 To Skin), Medica l 0.5 Inch ONCE, 1 Branch dose, On [facility] 12/11/22 at 1030, MICHAEL aspirin 2022- No 324mg 324 mg, Unive rs chewable 12-11-25 Oral, ity of tablet 324 15:30: 14:30 ONCE, 1 [place] mg 00 :00 dose, On [facility] Branch 12/11/22 at 1030, Routine ondansetron 2022- No 4mg 4 mg, Slow Univers (ZOFRAN 12-11 05-25 IV Push, ity of (PF)) 15:30: 14:29 ONCE, 1 [place] injection 4 00 :00 dose, On Medi kwame mg [facility] Branch 12/11/22 at 1030, MICHAEL LORazepam 2022- No 1mg 1 mg, Slow U nivers (ATIVAN) 12-11 05-25 IV Push, ity of injection 1 15:00: 14:57 ONCE, 1 [place] mg 00 :00 dose, On Medical [facility] Branch 12/11/22 at 1000, STAT Lacosamide Yes [id number] 100mg Take 1 Univers (VIMPAT) 5-25 tablet by ity of 100 mg 00:00: mouth in [place] tablet 00 the Medical morning Branch and 1 tablet in the evening. acetaminoph 2022- No 1{tbl} 1 tablet, Univers en-codeine 11-18 Oral, ity of (TYLENOL 05:30: 05:30 ONCE, 1 [place] #3) 300-30 00 :00 dose, On Medic al mg tablet 1 Thu11/18/22 Br anch tablet at 0030, MICHAEL methocarbam 2022- No 1000mg 1,000 mg, Univers oL 11-18 Oral, ity of (ROBAXIN) 05:30: 05:30 ONCE, 1 [place] tablet 00 :00 dose, On Medical 1,000 mg [facility] 11/18/22 Bran h at 0030, MICHAEL ondansetron 2022- No 4mg 4 mg, Slow Univers (ZOFRAN 11-18 IV Push, ity of (PF)) 04:45: 03:38 ONCE, 1 [place] injection 4 00 :00 dose, On Medi kwame mg [facility] 11/17/22 Branch at 2345, MICHAEL morpHINE (4 2022- No 4mg 4 mg, Slow Univers mg/mL) 11-18 IV Push, ity of injection 4 03:45: 03:38 ONCE, 1 [place] mg 00 :00 dose, On Medical [facility] 11/17/22 Branch at 2245, Routine methocarbam 2022- No 1000mg 1,000 mg, Univers oL 11-18 Intravenou ity of (ROBAXIN) 00:30: 23:47 s, ONCE, 1 [place] injection 00 :00 dose, On Medica l 1,000 mg [facility] 11/17/22 Branc h at 1930, MICHAEL methocarbam 2022-0 Yes [id number] 1000mg Take 2 Univers oL 500 mg -02 tablets by ity of tablet 00:00: mouth 4 [place] 00 (four) Medical times Branch daily as needed for Pain (scale 7-10). methocarbam 2023-0 Yes [id number] 1000mg Take 2 Univers oL 500 mg [...] 1-13 by mouth ity of 23:49: daily. [address] omega-3 0 Yes 1g Take 1 g Univer s fatty 1-13 by mouth ity of acids-vitam 23:49: daily. [place] in E (FISH 34 Medical OIL) 1,000 Branch mg capsule loratadine 0 Yes Take by Univ ers (CLARITIN 1-13 mouth ity of LIQUI-GEL) 23:49: daily. [place] 10 mg Medical capsule Branch ondansetron 0 Yes 4mg Take 4 mg U nivers 4 mg tablet 1-13 by mouth ity of 23:49: every 8 [place] [address] (eight) Medical hours as Branch needed. pantoprazol 0 Yes 40mg Take 40 mg Univers e 40 mg EC 1-13 by mouth ity o f tablet 23:49: daily. [address] MULTIVITAMI 2022-0 Yes 1{tbl} Take 1 Tab Univers N ORAL 1-13 by mouth ity of 23:49: daily. [address] omega-3 2022-0 Yes 1g Take 1 g Univer s fatty 1-13 by mouth ity of acids-vitam 23:49: daily. [place] in E (FISH 34 Medical OIL) 1,000 Branch mg capsule loratadine 0 Yes Take by Univ ers (CLARITIN 1-13 mouth ity of LIQUI-GEL) 23:49: daily. [place] 10 mg 34 Medical capsule Branch ondansetron 2022-0 Yes 4mg Take 4 mg U nivers 4 mg tablet 1-13 by mouth ity of 23:49: every 8 [place] [address] (eight) Medical hours as Branch needed. pantoprazol 0 Yes 40mg Take 40 mg Univers e 40 mg EC 1-13 by mouth ity o f tablet 23:49: daily. [address] MULTIVITAMI Yes 1{tbl} Take 1 Tab Univers N ORAL 1-13 by mouth ity of 23:49: daily. [address] omega-3 0 Yes 1g Take 1 g Univer s fatty 1-13 by mouth ity of acids-vitam 23:49: daily. [place] in [place] (FISH 34 Medical OIL) 1,000 Branch mg capsule loratadine 0 Yes Take by [facility] [place] [facility] ers (CLARITIN 1-13 mouth ity of LIQUI-GEL) 23:49: daily. [place] 10 mg 34 Medical capsule Branch ondansetron 0 Yes 4mg Take 4 mg U nivers 4 mg tablet 1-13 by mouth ity of 23:49: every 8 [place] [address] (eight) Medical hours as Branch needed. pantoprazol 2022-0 Yes 40mg Take 40 mg Univers e 40 mg EC 1-13 by mouth ity o f tablet 23:49: daily. [address] MULTIVITAMI Yes 1{tbl} Take 1 Tab Univers N ORAL 1-13 by mouth ity of 23:49: daily. [address] omega-3 Yes 1g Take 1 g Univer s fatty 1-13 by mouth ity of acids-vitam 23:49: daily. [place] in [place] (FISH 34 Medical OIL) 1,000 Branch mg capsule loratadine 0 Yes Take by [facility] [place] [facility] ers (CLARITIN 1-13 mouth ity of LIQUI-GEL) 23:49: daily. [place] 10 mg 34 Medical capsule Branch ondansetron 2022-0 Yes 4mg Take 4 mg U nivers 4 mg tablet 1-13 by mouth ity of 23:49: every 8 [place] [address] (eight) Medical hours as Branch needed. pantoprazol 2022-0 Yes 40mg Take 40 mg Univers e 40 mg EC 1-13 by mouth ity o f tablet 23:49: daily. [address] MULTIVITAMI 2023-0 Yes 1{tbl} Take 1 Tab Univers N ORAL 1-13 by mouth ity of 23:49: daily. [address] Branch omega-3 2022-0 Yes 1g Take 1 g Univer s fatty -13 by mouth ity of acids-vitam 23:49: daily. [place] in [place] (FISH 34 Medical OIL) 1,000 Branch mg capsule loratadine 0 Yes Take by Univ ers (CLARITIN - mouth ity of LIQUI-GEL) 23:49: daily. [place] 10 mg 34 Medical capsule Branch ondansetron 0 Yes 4mg Take 4 mg U nivers 4 mg tablet 13 by mouth ity of 23:49: every 8 [place] 34 (eight) Medical hours as Branch needed. pantoprazol 0 Yes 40mg Take 40 mg Univers e 40 mg EC 08-01 by mouth ity o f tablet 23:49: daily. [address] Branch benzonatate 0 Yes 100mg 100 [...] Shortness of Breath sulfur 3-0 2023- No [id number] 5mL 5 mL, Unive rs hexafluorid 08-01- Intravenou i ty of e microsphr 17:00: 17:00 s, ONCE, 1 [place] (LUMASON) 00 :00 dose, On Medica l injection 5 Fri Branch mL 08/01/22 at 1100, Routine
city council member approving Restricted medication : TCKYLEE pantoprazol [...] Javier as mg 54 Starting Medical on [facility] Branch 07/31/22 at 2352, Until Discontinu ed, Routine, Seizures, Agitation, Anxiety, ETOH / Cocaine Withdrawl foLIC acid 2022-0 Yes 1mg 1 mg, Univer s (FOLATE) 13 Oral, ity of tablet 1 mg 05:45: DAILY, [place] 00 First dose Medical on [facility] 07/31/22 at 2345, Until Discontinu ed, Routine thiamine 2022-0 Yes 100mg 100 mg, Unive rs (VITAMIN 13 Oral, ity of B1) tablet 05:45: DAILY, [place] 100 mg 00 First dose Medical on [facility] 07/31/22 at 2345, Until Discontinu ed, Routine LORazepam 2022-0 2022- No .5mg 0.5 mg, Univ ers (ATIVAN) 08-01 Slow IV ity of injection 05:30: 05:29 Push, [place] 0.5 mg 00 :00 ONCE, 1 Medical dose, On Branch [facility] 07/31/22 at 2330, MICHAEL atorvastati 0 Yes 40mg 40 mg, Univ ers n (LIPITOR) 13 Oral, QHS, it y of tablet 40 03:00: First dose [place] mg 00 on [facility] 07/31/22 at Branch 2100, Until Discontinu ed, Routine diphenhydrA 2022-0 Yes 25mg 25 mg, Univ ers MINE 13 Oral, ity of (BENADRYL) 00:32: Q6HPRN, [place] tablet 25 02 Starting Medica l mg on [facility] 07/31/22 at 1832, Until Discontinu ed, Routine, Itching enoxaparin 2022-0 Yes 40mg 40 mg, Unive rs (LOVENOX) 07-31 Subcutaneo ity of injection 23:00: [place], DAILY, [place] 40 mg 00 First dose Medical on [facility] 07/31/22 at 1700, Until Discontinu ed, [...] :34 Starting Medi kwame tablet 1 on [facility] Branch tablet 07/31/22 at 1601, Until 08/02/22 [...] ity of succ 19:30: 18:54 Push, ONCE [place] (SOLU-MEDRO 00 :00 NOW, 1 Medica l L) dose, On Branch injection [facility] 125 mg 07/31/22 at 1330, MICHAEL ipratropium 2022- No 3mL 3 mL, [facility] [place] [facility] ers -albuteroL 07-31 Inhalation it y of (DUONEB) 19:30: 18:48 , ONCE, 1 [place] as 0.5 mg-3 00 :00 dose, On Medical mg(2.5 mg [place] Branch base)/3 mL 07/31/22 at nebulizer 1330, MICHAEL solution 3 mL pantoprazol Yes 40mg Take 40 mg Univers e 40 mg EC 12 by mouth ity o f tablet 17:15: daily. [place] 40 Medical Branch MULTIVITAMI 0 Yes 1{tbl} Take 1 Tab Univers N ORAL 12 by mouth ity of 15:50: daily. [place] 57 Medical Branch loratadine Yes Take by [facility] [place] [facility] ers (CLARITIN 12 mouth ity of LIQUI-GEL) 15:50: daily. [place] 10 mg 57 Medical capsule Branch ondansetron Yes 4mg Take 4 mg U nivers 4 mg tablet 12 by mouth ity of 15:50: every 8 [place] 57 (eight) Medical hours as Branch needed. omega-3 Yes 1g Take 1 g [facility] s fatty 12 by mouth ity of acids-vitam 15:21: [facility] Medical OIL) 1,000 Branch mg capsule TAKE ONE No (1) 1-09 TABLET(S) 00:00: BY MOUTH 00 THREE TIMES A DAY NEEDED. Methylpredn 2021-07- No [id number] 4mg Take 1 Univers isolone 4 0-22 10-24 tablet ity of mg tablet 00:00: 04:59 through [place] 00 :00 enteral Medical tube in Branch the morning for 1 dose. Methylpredn 2021-07- No [id number] 4mg Take 1 Univers isolone 4 0-21 10-23 tablet ity of mg tablet 00:00: 04:59 through [place] 00 :00 enteral Medical tube every Branch 12 (twelve) hours for 2 doses. MULTIVITAMI 2021-07 Yes 1{tbl} Take 1 Tab Univers N ORAL 0-20 by mouth ity of 14:44: daily. [place] 48 Medical Branch omega-3 2021-07 Yes 1g Take 1 g Univer s fatty 0-20 by mouth ity of acids-vitam 14:44: daily. [place] in E (FISH 48 Medical OIL) 1,000 Branch mg capsule loratadine 2021-07 Yes Take by [facility] [place] [facility] ers (CLARITIN 0-20 mouth ity of LIQUI-GEL) 14:44: daily. [place] 10 mg 48 Medical capsule Branch ondansetron 2021-07 Yes 4mg Take 4 mg U nivers (ZOFRAN) 4 0-20 by mouth ity o f mg tablet 14:44: every 8 [place] 48 (eight) Medical hours as Branch needed. pantoprazol 2021-07 Yes 40mg Take 40 mg Univers e 0-20 by mouth ity of (PROTONIX) 14:44: daily. [place] 40 mg EC 48 Medical tablet Branch DULoxetine 2021-07 Yes 30mg 30 mg, Unive rs (CYMBALTA) 0-20 Oral, ity of capsule 30 14:00: DAILY, [place] mg 00 First dose Medical on [facility] Branch 05/08/22 at 0900, Until Discontinu ed, Routine divalproex 2021-07 Yes 1000mg 1,000 mg, Univers (DEPAKOTE) 0-20 Oral, BID, ity of EC tablet 13:00: First dose [place] 1,000 mg 00 (after Medical last Branch modificati on) on [facility] 05/08/22 at 0800, Until Discontinu ed, Routine Methylpredn 2021-07 No 4mg 4 mg, Univ ers isolone 0-20 10-21 Oral, Q8H ity of (MEDROL) 08:50: 08:59 TAPER, 3 [place] tablet 4 mg 10 :00 doses, Medica l First dose Branch on [facility] 05/08/22 at 0400, Last dose on [facility] 05/08/22 at 2000, Routine acetaminoph 2021-07 Yes [...] Discontinu ed, Routine, Anxiety cyclobenzap 2021-07 Yes [id number] 5mg Take 1 Univers rine 5 mg 0-20 tablet by ity o f tablet 00:00: mouth in [place] [address] the [facility] morning Branch and 1 tablet at noon and 1 tablet in the evening. cyclobenzap 2021-07 Yes [id number] 5mg Take 1 Univers rine 5 mg 0-20 tablet by ity o f tablet 00:00: mouth in [place] [address] the [facility] morning Branch and 1 tablet at noon and 1 tablet in the evening. cyclobenzap 2021-07 Yes [id number] 5mg Take 1 Univers rine 5 mg 0-20 tablet by ity o f tablet 00:00: mouth in [address] morning Branch and 1 tablet at noon and 1 tablet in the evening. cyclobenzap 2021-07 Yes [id number] 5mg Take 1 Univers rine 5 mg 0-20 tablet by ity o f tablet 00:00: mouth in [address] morning Branch and 1 tablet at noon and 1 tablet in the evening. cyclobenzap 2021-07 Yes [id number] 5mg Take 1 Univers rine 5 mg 0-20 tablet by ity o f tablet 00:00: mouth in [address] morning Branch and 1 tablet at noon and 1 tablet in the evening. cyclobenzap 2021-07 Yes [id number] 5mg Take 1 Univers rine 5 mg 0-20 tablet by ity o f tablet 00:00: mouth in [place] 00 the Medical morning Branch and 1 tablet at noon and 1 tablet in the evening. cyclobenzap 2021-07 Yes [id number] 5mg Take 1 Univers rine 5 mg 0-20 tablet by ity o f tablet 00:00: mouth in [place] 00 the Medical morning Branch and 1 tablet at noon and 1 tablet in the evening. DULoxetine 2021-07- No [id number] 60mg Take 2 Univers (CYMBALTA) 0-20 11-20 capsules ity of 30 mg 00:00: 05:59 by mouth [place] capsule 00 :00 in the Medical morning Branch for 30 days. divalproex 2021-07- No [id number] 750mg Take 3 Univers (DEPAKOTE) 0-20 11-20 tablets by it y of 250 mg EC 00:00: 05:59 mouth [place] tablet 00 :00 every 8 Medical (eight) Branch hours for 30 days. LORazepam 1 2021-07- No [id number] 1mg Take 1 Univers mg tablet 0-20 [...] Indication s: acute pain Methylpredn 2021-07- No [id number] 4mg Take 1 Univers isolone 4 0-20 10-22 tablet by ity of mg tablet 00:00: 04:59 mouth [place] 00 :00 every 8 Medical (eight) Branch hours for 3 doses. divalproex 2021-07- No 750mg 750 mg, Un lois (DEPAKOTE) 0-19 10-20 Oral, BID, it y of EC tablet 01:00: 09:40 First dose [place] 750 mg 00 :23 on [facility] 05/06/22 Branch at 1999, Until Discontinu ed, [...] [place] tablet 500 00 :42 on [facility] 05/05/22 Branch at 2115, Until Discontinu ed, Routine LORazepam 2021-07 No 2mg 2 mg, Univer s (ATIVAN) 05-06 Oral, ity of tablet 2 mg 01:30: 01:03 ONCE, 1 [place] 00 :00 dose, On [facility] 05/05/22 at 2030, Routine levETIRAcet 2021-07 No [...] 40 mg 00 First dose Medical on [facility] 05/05/22 at 1915, Until Discontinu ed, Routine levETIRAcet 2021-07 No 1000mg 1,000 mg, Univers am (KEPPRA) 005-05 IV ity of in NACL 19:45: 20:05 Piggyback, [place] as (ISO-OS) 00 :00 ONCE, 1 Medical 1,000 dose, On Branch mg/100 mL [facility] RTU 05/05/22 at 1445, Administer over 15 [...] [place] mg 00 First dose Medical on [facility] 05/05/22 at 1430, Until Discontinu ed, [...] [place] tablet 5 mg 00 on [facility] 05/05/22 Branch at 1430, Until Discontinu [...] First dose Medi kwame 40 mg on [facility] 05/05/22 at 0900, Until Discontinu ed, Routine docusate 2021-07 Yes 100mg 100 mg, Unive rs (COLACE) 0-17 Oral, ity of capsule 100 14:00: DAILY, [place] mg 00 First dose Medical on [facility] 05/05/22 at 0900, Until Discontinu ed, Routine HYDROcodone 2021-07- No 1{tbl} 1 tablet, Univers -acetaminop 0-17 10-17 Oral, ity of hen (NORCO) 10:32: 19:18 Q6HPRN, [place] 10-325 mg 02 :52 Starting Medica l tablet 1 on [facility] tablet 05/05/22 at 0532, Until Thu05/05/22 at 1418, Routine, Pain (scale 7-10) ondansetron 2021-07 Yes 4mg 4 mg, Slow Univers (ZOFRAN 0-17 IV Push, ity of (PF)) 06:49: Q6HPRN, [place] injection 4 57 Starting Medi kwame mg on [facility] Branch 05/05/22 at 0149, Until Discontinu ed, Routine, Nausea and Vomiting (N/V) HYDROcodone 2021-07- No 1{tbl} 1 tablet, Univers -acetaminop 0-17 10-17 Oral, ity of hen (NORCO 06:49: 10:32 Q6HPRN, [place] as 5) 5-325 mg 41 :14 Starting Medi kwame tablet 1 on [facility] tablet 05/05/22 at 0149, Until Thu05/05/22 at 0532, Routine, Pain (scale 7-10) acetaminoph 2021-07- No 325mg 325 mg, U nivers en 0-17 10- Oral, ity of (TYLENOL) 06:49: 19:18 Q4HPRN, [place] tablet 325 39 :52 Starting Medic al mg on [facility] Branch 05/05/22 at 0149, Until Thu05/05/22 at 1418, Routine, Pain (scale 4-6) ondansetron 2021-07- No 4mg 4 mg, Univ ers (ZOFRAN) 0-17 10-17 Oral, ity of tablet 4 mg 04:00: 03:26 ONCE, 1 [place] 00 :00 dose, On [facility] 05/04/22 at 2300, Routine morpHINE (2 2021-07- No 2mg 2 mg, Slow Univers mg/mL) 0-17 10-17 IV Push, ity of injection 2 04:00: 03:26 ONCE, 1 [place] mg 00 :00 dose, On [facility] 05/04/22 at 2300, Routine aspirin 81 0 Yes [id number] 81mg Take 1 U nivers mg chewable 9-28 tablet by ity of tablet 00:00: mouth in [place] 00 the Medical morning. Branch aspirin 81 2021-0 Yes [id number] 81mg Take 1 U nivers mg chewable 9-28 tablet by ity of tablet 00:00: mouth in [place] 00 the Medical morning. Branch aspirin 81 0 Yes [id number] 81mg Take 1 U nivers mg chewable 9-28 tablet by ity of tablet 00:00: mouth in [place] 00 the Medical morning. Branch aspirin 81 0 Yes [id number] 81mg Take 1 U nivers mg chewable 9-28 tablet by ity of tablet 00:00: mouth in [place] 00 the Medical morning. Branch aspirin 81 0 Yes [id number] 81mg Take 1 U nivers mg chewable 9-28 tablet by ity of tablet 00:00: mouth in [place] 00 the Medical morning. [place] aspirin 81 0 Yes [id number] 81mg Take 1 U nivers mg chewable 9-28 tablet by ity of tablet 00:00: mouth in [place] 00 the Medical morning. Branch aspirin 81 0 Yes [id number] 81mg Take 1 U nivers mg chewable 9-28 tablet by ity of tablet 00:00: mouth in [place] 00 the Medical morning. [place] aspirin 81 0 Yes [id number] 81mg Take 1 U nivers mg chewable 9-28 tablet by ity of tablet 00:00: mouth in [place] 00 the Medical morning. [place] MULTIVITAMI Yes 1{tbl} Take 1 Tab Univers N ORAL 9-27 by mouth ity of 17:39: daily. [place] 14 [facility] Branch omega-3 Yes 1g Take 1 g Univer s fatty 9- by mouth ity of acids-vitam 17:39: [facility]. [facility]FISH 14 Medical OIL) 1,000 Branch mg capsule loratadine Yes Take by Univ ers (CLARITIN 9- mouth ity of LIQUI-GEL) 17:39: daily. [place] 10 14 Medical capsule Branch ondansetron Yes [...] (after Medical last Branch modificati on) on [facility] 04/14/22 at 2145, Until Discontinu ed, Routine ketorolac 2021- No 15mg 15 mg, Unive rs (TORADOL) 04-15 Slow IV ity of injection 02:13: 02:22 Push, [place] 15 mg 00 :00 ONCE, 1 Medical dose, On Branch 04/14/22 at 2115, Routine levETIRAcet Yes [id number] 1000mg Take 1 Univers am 1,000 mg 9-27 tablet by ity of tablet 00:00: mouth in [place] 00 the Medical morning Branch and 1 tablet in the evening. atorvastati Yes [id number] 40mg Take 1 Univers n 40 mg 9-27 tablet by ity of tablet 00:00: mouth at [place] 00 bedtime. Medical Branch atorvastati Yes [id number] 40mg Take 1 Univers n 40 mg 9-27 tablet by ity of tablet 00:00: mouth at [place] 00 bedtime. Medical Branch atorvastati Yes [id number] 40mg Take 1 Univers n 40 mg 9-27 tablet by ity of tablet 00:00: mouth at [place] 00 bedtime. Medical Branch atorvastati Yes [id number] 40mg Take 1 Univers n 40 mg 9-27 tablet by ity of tablet 00:00: mouth at [place] 00 bedtime. Medical Branch atorvastati Yes [id number] 40mg Take 1 Univers n 40 mg 9-27 tablet by ity of tablet 00:00: mouth at [place] 00 bedtime. Medical Branch atorvastati Yes [id number] 40mg Take 1 Univers n 40 mg 9-27 tablet by ity of tablet 00:00: mouth at [place] [address] bedtime. Medical Branch atorvastati Yes [id number] 40mg Take 1 Univers n 40 mg 9-27 tablet by ity of tablet 00:00: mouth at [place] [address] bedtime. Medical Branch atorvastati Yes [id number] 40mg Take 1 Univers n 40 mg 9-27 tablet by ity of tablet 00:00: mouth at [place] [address] bedtime. Medical Branch levETIRAcet 2021- No [id number] 1000mg Take 1 Univers am 1,000 mg 9-27 10-20 tablet by it y of tablet 00:00: 00:00 mouth in [place] 00 :00 the Medical morning Branch and 1 tablet in the evening. lidocaine 5 2021- No [id number] 1{patch Apply 1 Univers % (700 9-27 [...] 12 Medical patch 1 Hours, Branch Patch [id number], Starting on Thu04/14/22 at 1645, Until Discontinu [...] 7-10), Pain (scale 4-6) sulfur 2021-2021- No [id number] 5mL 5 mL, Univ ers hexafluorid 04-14 Intravenou i ty of e microsphr 16:45: 16:45 s, ONCE, 1 [place] (LUMASON) 00 :00 dose, On Medica l injection 5 Mon Branch mL 04/14/22 at 1145, Routine
city council member approving Restricted medication : [employer] clopidogreL 0 Yes 75mg 75 mg, Univ ers (PLAVIX) 75 04-14 Oral, ity of mg tablet 14:00: DAILY, [place] 75 mg 00 First dose Medical on [facility] 04/14/22 at 0900, Until Discontinu ed, Routine pantoprazol Yes 40mg 40 mg, Univ ers e 04-14 Oral, ity of (PROTONIX) 14:00: DAILY, [place] EC tablet 00 First dose Medi kwame 40 mg on [facility] 04/14/22 at 0900, Until Discontinu ed, Routine atorvastati Yes 40mg 40 mg, Univ ers n (LIPITOR) 04-14 Oral, QHS, it y of tablet 40 02:00: First dose [place] mg 00 on [facility] 04/13/22 at Branch 2100, Until Discontinu ed, Routine LORazepam 2021- No 1mg 1 mg, Univer s (ATIVAN) 04-14 Oral, ity of tablet 1 mg 01:30: 01:45 ONCE, 1 [place] 00 :00 dose, On Medical [facility] 04/13/22 at 2030, Routine methocarbam Yes 500mg 500 mg, Un lois oL 04-14 Oral, QID, ity of (ROBAXIN) 01:00: First dose [place] tablet 500 00 on [facility] mg 04/13/22 at Branch 2000, Until Discontinu ed, Routine heparin Yes 5000U 5,000 Univers (porcine) 04-14 Units, ity of injection 01:00: Subcutaneo [place] 5,000 Units 00 us, Q12H, Med ical First dose Branch on [place] 04/13/22 at 2000, Until Discontinu ed, Routine acetaminoph 2021- No 650mg 650 mg, U nivers en 04-14 Oral, ity of (TYLENOL) 00:23: 21:29 Q6HPRN, [place] tablet 650 25 :42 Starting Medic al mg on [facility] 04/13/22 at 1923, Until [facility] 04/14/22 at 1629, Routine, Pain (scale 1-3), Pain (scale 4-6), Temp > 38.5 C, Temp > 37.5 C lidocaine 2021- No 1{patch 1 Patch, Univers (LIDODERM) 04-14 } Topical, ity of 5 % (700 00:22: 13:51 Administer [place] mg/patch) 00 :00 over 12 Medical patch 1 Hours, Branch Patch ONCE, 1 dose, On [place] 04/13/22 at 1930, Routine FENTanyl PF 2021- No 50ug 50 mcg, Un lois (SUBLIMAZE 04-13 Slow IV ity o f (PF)) 20:30: 19:22 Push, [place] injection 00 :00 ONCE, 1 Medical 50 mcg dose, On [facility] 04/13/22 at 1530, Routine aspirin 2021- No 650mg 650 mg, Unive rs chewable 04-13 Oral, ity of tablet 650 20:15: 20:15 ONCE, 1 [place] mg 00 :00 dose, On Medical [facility] 04/13/22 at 1515, Routine clopidogreL 2021- No 300mg 300 mg, U nivers (PLAVIX) 04-13 Oral, ity of 300 mg 20:00: 19:15 ONCE, 1 [place] tablet 300 00 :00 dose, On Medic al mg [facility] 04/13/22 at 1500, Routine ondansetron 2021- No 4mg 4 mg, Slow Univers (ZOFRAN 04-13 IV Push, ity of (PF)) 19:30: 19:22 ONCE, 1 [place] injection 4 00 :00 dose, On Medi kwame mg [facility] 04/13/22 at 1430, MICHAEL iopamidol 2021- No [id number] 100mL 100 mL, Univers (ISOVUE 04-13 Intravenou ity o f 370-500 mL) 18:31: 18:32 s, ONCE, 1 [place] injection 00 :00 dose, On Medica l 100 mL [facility] 04/13/22 at 1345, Routine NaCl 0.9% [...] Sat Medica l mg(2.5 mg 03/16/21 at [facility] base)/3 mL 2100, MICHAEL nebulizer [...] IV ity of succ 01:57: 02:11 Push, [place] (SOLU-MEDRO 00 :00 ONCE, 1 Medic al [...] IV ity of succ 01:57: 02:11 Push, [place] (SOLU-MEDRO 00 :00 ONCE, 1 Medic al [...] nebulizer solution 3 mL levoFLOXaci 2020- No [id number] 500mg Take 1 Univers n 500 mg 03-17 tablet by ity o f tablet 00:00: 04:59 mouth [place] 00 :00 daily for Medical 6 days. Branch levoFLOXaci 2020- No [id number] 500mg Take 1 Univers n 500 mg 03-17 tablet by ity o f tablet 00:00: 04:59 mouth [place] 00 :00 daily for Medical 6 days. Branch levoFLOXaci 2020-0 2020- No [id number] 500mg Take 1 Univers n 500 mg 03-17 tablet by ity o f tablet 00:00: 04:59 mouth [place] 00 :00 daily for Medical 6 days. Branch levoFLOXaci 2020- No [id number] 500mg Take 1 Univers n 500 mg 03-17 tablet by ity o f tablet 00:00: 04:59 mouth [place] 00 :00 daily for Medical 6 days. Branch predniSONE 2020- No [id number] 30mg Take 3 Univers 10 mg 03-17 tablets by ity of tablet 00:00: 04:59 mouth [place] 00 :00 daily for Medical 4 days. Branch predniSONE No [id number] 30mg Take 3 Univers 10 mg 03-17 tablets by ity of tablet 00:00: 04:59 mouth [place] 00 :00 daily for Medical 4 days. Branch predniSONE 2020- No [id number] 30mg Take 3 Univers 10 mg 03-17 tablets by ity of tablet 00:00: 04:59 mouth [place] 00 :00 daily for Medical 4 days. Branch predniSONE No [id number] 30mg Take 3 Univers 10 mg 03-17 tablets by ity of tablet 00:00: 04:59 mouth [place] 00 :00 daily for Medical 4 days. Branch albuterol 2020- No [id number] 4{puff} 4 Puff, Univers (VENTOLIN) 03-15 Inhalation it y of inhaler 4 01:45: 00:44 , ONCE, 1 [place] Puff 00 :00 dose, [facility] Medical 03/14/21 at [place] 2044, Routine dexamethaso No [id number] 10mg 10 mg, Univers ne 03-15- Intramuscu ity of (DECADRON) 01:45: 00:45 lar, ONCE, [place] injection 00 :00 1 dose, Medical 10 mg [facility] 03/14/21 at 2044, Routine albuterol Yes [id number] 2.5mg Inhale 3 Univers 2.5 mg /3 - mL every 4 ity of mL (0.083 00:00: (four) [place] %) 00 hours as Medical nebulizer needed for Bran ch solution Wheezing or Shortness of Breath. albuterol 2020-0 Yes [id number] 2.5mg Inhale 3 Univers 2.5 mg /3 8-27 mL every 4 ity of mL (0.083 00:00: (four) [place] %) 00 hours as Medical nebulizer needed for Bran ch solution Wheezing or Shortness of Breath. albuterol 2020-0 Yes [id number] 2.5mg Inhale 3 Univers 2.5 mg /3 8-27 mL every 4 ity of mL (0.083 00:00: (four) [place] %) 00 hours as Medical nebulizer needed for Bran ch solution Wheezing or Shortness of Breath. albuterol 2020-0 Yes [id number] 2.5mg Inhale 3 Univers 2.5 mg /3 8-27 mL every 4 ity of mL (0.083 00:00: (four) [place] %) 00 hours as Medical nebulizer needed for Bran ch solution Wheezing or Shortness of Breath. albuterol 2020-0 Yes [id number] 2.5mg Inhale 3 Univers 2.5 mg /3 8-27 mL every 4 ity of mL (0.083 00:00: (four) [place] %) 00 hours as Medical nebulizer needed for Bran ch solution Wheezing or Shortness of Breath. albuterol 2020-0 Yes [id number] 2.5mg Inhale 3 Univers 2.5 mg /3 8-27 mL every 4 ity of mL (0.083 00:00: (four) [place] %) 00 hours as Medical nebulizer needed for Bran ch solution Wheezing or Shortness of Breath. albuterol 2020-0 Yes [id number] 2.5mg Inhale 3 Univers 2.5 mg /3 8-27 mL every 4 ity of mL (0.083 00:00: (four) [place] %) 00 hours as Medical nebulizer needed for Bran ch solution Wheezing or Shortness of Breath. albuterol 2020-0 Yes [id number] 2.5mg Inhale 3 Univers 2.5 mg /3 8-27 mL every 4 ity of mL (0.083 00:00: (four) [place] %) 00 hours as Medical nebulizer needed for Bran ch solution Wheezing or Shortness of Breath. albuterol 2020-0 Yes [id number] 2.5mg Inhale 3 Univers 2.5 mg /3 8-27 mL every 4 ity of mL (0.083 00:00: ([facility]) [place] %) 00 hours as Medical nebulizer needed for Bran ch solution Wheezing or Shortness of Breath. albuterol 2020-0 Yes [id number] 2.5mg Inhale 3 Univers 2.5 mg /3 8-27 mL every 4 ity of mL (0.083 00:00: ([facility] [place] %) 00 hours as Medical nebulizer needed for Bran ch solution Wheezing or Shortness of Breath. albuterol 2020-0 Yes [id number] 2.5mg Inhale 3 Univers 2.5 mg /3 8-27 mL every 4 ity of mL (0.083 00:00: ([facility] [place] %) 00 hours as Medical nebulizer needed for Bran ch solution Wheezing or Shortness of Breath. albuterol 2020-0 Yes [id number] 2.5mg Inhale 3 Univers 2.5 mg /3 8-27 mL every 4 ity of mL (0.083 00:00: ([facility] [place] %) 00 hours as Medical nebulizer needed for Bran ch solution Wheezing or Shortness of Breath. albuterol 2020-0 Yes [id number] 2.5mg Inhale 3 Univers 2.5 mg /3 8-27 mL every 4 ity of mL (0.083 00:00: ([facility] [place] %) 00 hours as Medical nebulizer needed for Bran ch solution Wheezing or Shortness of Breath. albuterol 2020-0 Yes [id number] 2.5mg Inhale 3 Univers 2.5 mg /3 8-27 mL every 4 ity of mL (0.083 00:00: (four) [place] %) 00 hours as Medical nebulizer needed for Bran ch solution Wheezing or Shortness of Breath. albuterol 2020-0 Yes [id number] 2.5mg Inhale 3 Univers 2.5 mg /3 8-27 mL every 4 ity of mL (0.083 00:00: (four) [place] %) 00 hours as Medical nebulizer needed for Bran ch solution Wheezing or Shortness of Breath. albuterol 2020-0 Yes [id number] 2.5mg Inhale 3 Univers 2.5 mg /3 8-27 mL every 4 ity of mL (0.083 00:00: (four) [place] %) 00 hours as Medical nebulizer needed for Bran ch solution Wheezing or Shortness of Breath. albuterol 0 Yes [id number] 2.5mg Inhale 3 Univers 2.5 mg /3 8-27 mL every 4 ity of mL (0.083 00:00: (four) [place] %) 00 hours as Medical nebulizer needed for Bran ch solution Wheezing or Shortness of Breath. albuterol 0 Yes [id number] 2.5mg Inhale 3 Univers 2.5 mg /3 [...] (KEPPRA 8-03 mouth. ity of ORAL) 19:45: [address] levetiracet Yes Take by Uni vers am (KEPPRA 8-03 mouth. ity of ORAL) 19:45: [address] levetiracet 0 Yes Take by Uni vers am (KEPPRA 8-03 mouth. ity of ORAL) 19:45: [address] levetiracet 0 Yes Take by Uni vers am (KEPPRA 8-03 mouth. ity of ORAL) 19:45: [address] levetiracet 0 Yes Take by Uni vers am (KEPPRA 8-03 mouth. ity of ORAL) 19:45: [address] levetiracet 0 Yes Take by Uni [...] Tue Medica l NaCl 0.9% 02/19/21 at [facility] h (NS) 50 mL [...] at Branch 1200, MICHAEL iopamidol 2020- No [id number] 100mL 100 mL, Univers (ISOVUE 02-19 Intravenou ity o f 370-500 mL) 16:35: 16:45 s, ONCE, 1 [place] injection 00 :00 dose, Tue Medic al 100 mL 02/19/21 at Branch 1145, Routine levetiracet 2020-0 Yes Take by Uni vers am (KEPPRA 8-03 mouth. ity of ORAL) 14:45: [address] levetiracet 2020-0 Yes Take by Uni vers am (KEPPRA 8-03 mouth. ity of ORAL) 14:45: [address] levetiracet 2020-0 Yes Take by Uni vers am (KEPPRA 8-03 mouth. ity of ORAL) 14:45: [address] levetiracet 2020-0 Yes Take by Uni vers am (KEPPRA 8-03 mouth. ity of ORAL) 14:45: [address] levetiracet 2020-0 Yes Take by Uni vers am (KEPPRA 8-03 mouth. ity of ORAL) 14:45: [address] proMETHazin 2020-0 Yes [id number] 25mg Take 1 Univers e 25 mg 8-03 tablet by ity of tablet 00:00: mouth [place] 00 every 6 Medical (six) Branch hours as needed for Nausea and Vomiting (N/V). dicyclomine 2020-0 Yes [id number] 20mg Take 1 Univers 20 mg 8-03 tablet by ity of tablet 00:00: mouth 4 [place] 00 (four) Medical times Branch daily as needed for Abdominal pain. proMETHazin 2020-0 Yes [id number] 25mg Take 1 Univers e 25 mg 8-03 tablet by ity of tablet 00:00: mouth [place] 00 every 6 Medical (six) Branch hours as needed for Nausea and Vomiting (N/V). dicyclomine 2020-0 Yes [id number] 20mg Take 1 Univers 20 mg 8-03 tablet by ity of tablet 00:00: mouth 4 [place] 00 (four) Medical times Branch daily as needed for Abdominal pain. proMETHazin 202-0 Yes [id number] 25mg Take 1 Univers e 25 mg 8-03 tablet by ity of tablet 00:00: mouth [place] 00 every 6 Medical (six) Branch hours as needed for Nausea and Vomiting (N/V). dicyclomine 2021-0 Yes [id number] 20mg Take 1 Univers 20 mg 8-03 tablet by ity of tablet 00:00: mouth 4 [place] 00 (four) Medical times Branch daily as needed for Abdominal pain. proMETHazin 1-0 Yes [id number] 25mg Take 1 Univers e 25 mg 8-03 tablet by ity of tablet 00:00: mouth [place] 00 every 6 Medical (six) Branch hours as needed for Nausea and Vomiting (N/V). dicyclomine 2020-0 Yes [id number] 20mg Take 1 Univers 20 mg 8-03 tablet by ity of tablet 00:00: mouth 4 00 (four) Medical times Branch daily as needed for Abdominal pain. proMETHazin 2020-0 Yes [id number] 25mg Take 1 Univers e 25 mg 8-03 tablet by ity of tablet 00:00: mouth [place] 00 every 6 Medical (six) Branch hours as needed for Nausea and Vomiting (N/V). dicyclomine 2020-0 Yes [id number] 20mg Take 1 Univers 20 mg 8-03 tablet by ity of tablet 00:00: mouth (four) Medical times Branch daily as needed for Abdominal pain. proMETHazin 2020-0 Yes [id number] 25mg Take 1 Univers e 25 mg 8-03 tablet by ity of tablet 00:00: mouth [place] 00 every 6 Medical (six) Branch hours as needed for Nausea and Vomiting (N/V). dicyclomine 2020-0 Yes [id number] 20mg Take 1 Univers 20 mg 8-03 tablet by ity of tablet 00:00: mouth (four) Medical times Branch daily as needed for Abdominal pain. proMETHazin 2020-0 Yes [id number] 25mg Take 1 Univers e 25 mg 8-03 tablet by ity of tablet 00:00: mouth [place] 00 every 6 Medical (six) Branch hours as needed for Nausea and Vomiting (N/V). dicyclomine 202-0 Yes [id number] 20mg Take 1 Univers 20 mg 8-03 tablet by ity of tablet 00:00: mouth 00 (four) Medical times Branch daily as needed for Abdominal pain. proMETHazin 2020-0 Yes [id number] 25mg Take 1 Univers e 25 mg 8-03 tablet by ity of tablet 00:00: mouth [place] 00 every 6 Medical (six) Branch hours as needed for Nausea and Vomiting (N/V). dicyclomine 2021-0 Yes [id number] 20mg Take 1 Univers 20 mg 8-03 tablet by ity of tablet 00:00: mouth 4 (four) Medical times Branch daily as needed for Abdominal pain. proMETHazin 2020-0 Yes [id number] 25mg Take 1 Univers e 25 mg 8-03 tablet by ity of tablet 00:00: mouth [place] 00 every 6 Medical (six) Branch hours as needed for Nausea and Vomiting (N/V). dicyclomine 2020-0 Yes [id number] 20mg Take 1 Univers 20 mg 8-03 tablet by ity of tablet 00:00: mouth (four) Medical times Branch daily as needed for Abdominal pain. proMETHazin 2020-0 Yes [id number] 25mg Take 1 Univers e 25 mg 8-03 tablet by ity of tablet 00:00: mouth [place] 00 every 6 Medical (six) Branch hours as needed for Nausea and Vomiting (N/V). dicyclomine 2020-0 Yes [id number] 20mg Take 1 Univers 20 mg 8-03 tablet by ity of tablet 00:00: mouth (four) Medical times Branch daily as needed for Abdominal pain. proMETHazin 2020-0 Yes [id number] 25mg Take 1 Univers e 25 mg 8-03 tablet by ity of tablet 00:00: mouth [place] 00 every 6 Medical (six) Branch hours as needed for Nausea and Vomiting (N/V). dicyclomine 2020-0 Yes [id number] 20mg Take 1 Univers 20 mg 8-03 tablet by ity of tablet 00:00: mouth (four) Medical times Branch daily as needed for Abdominal pain. proMETHazin 2020-0 Yes [id number] 25mg Take 1 Univers e 25 mg 8-03 tablet by ity of tablet 00:00: mouth [place] 00 every 6 Medical (six) Branch hours as needed for Nausea and Vomiting (N/V). dicyclomine 2020-0 Yes [id number] 20mg Take 1 Univers 20 mg 8-03 tablet by ity of tablet 00:00: mouth 4 (four) Medical times Branch daily as needed for Abdominal pain. proMETHazin 2020-0 Yes [id number] 25mg Take 1 Univers e 25 mg 8-03 tablet by ity of tablet 00:00: mouth [place] 00 every 6 Medical (six) Branch hours as needed for Nausea and Vomiting (N/V). dicyclomine 2021-0 Yes [id number] 20mg Take 1 Univers 20 mg 8-03 tablet by ity of tablet 00:00: mouth (four) Medical times Branch daily as needed for Abdominal pain. proMETHazin 2020-0 Yes [id number] 25mg Take 1 Univers e 25 mg 8-03 tablet by ity of tablet 00:00: mouth 00 every 6 Medical (six) Branch hours as needed for Nausea and Vomiting (N/V). dicyclomine 2020-0 Yes [id number] 20mg Take 1 Univers 20 mg 8-03 tablet by ity of tablet 00:00: mouth (four) Medical times Branch daily as needed for Abdominal pain. proMETHazin 2020-0 Yes [id number] 25mg Take 1 Univers e 25 mg 8-03 tablet by ity of tablet 00:00: mouth 00 every 6 Medical (six) Branch hours as needed for Nausea and Vomiting (N/V). dicyclomine 2020-0 Yes [id number] 20mg Take 1 Univers 20 mg 8-03 tablet by ity of tablet 00:00: mouth (four) Medical times Branch daily as needed for Abdominal pain. proMETHazin 2020-0 Yes [id number] 25mg Take 1 Univers e 25 mg 8-03 tablet by ity of tablet 00:00: mouth 00 every 6 Medical (six) Branch hours as needed for Nausea and Vomiting (N/V). dicyclomine 2020-0 Yes [id number] 20mg Take 1 Univers 20 mg 8-03 tablet by ity of tablet 00:00: mouth (four) Medical times Branch daily as needed for Abdominal pain. proMETHazin 2020-0 Yes [id number] 25mg Take 1 Univers e 25 mg 8-03 tablet by ity of tablet 00:00: mouth [place] 00 every 6 Medical (six) Branch hours as needed for Nausea and Vomiting (N/V). dicyclomine 2021-0 Yes [id number] 20mg Take 1 Univers 20 mg 8-03 tablet by ity of tablet 00:00: mouth (four) Medical times Branch daily as needed for Abdominal pain. proMETHazin 2021-0 Yes [id number] 25mg Take 1 Univers e 25 mg 8-03 tablet by ity of tablet 00:00: mouth [place] 00 every 6 Medical (six) Branch hours as needed for Nausea and Vomiting (N/V). dicyclomine Yes [id number] 20mg Take 1 Univers 20 mg 8-03 tablet by ity of tablet 00:00: mouth 4 00 (four) Medical times Branch daily as needed for Abdominal pain. proMETHazin Yes [id number] 25mg Take 1 Univers e 25 mg 8-03 tablet by ity of tablet 00:00: mouth [place] 00 every 6 Medical (six) Branch hours as needed for Nausea and Vomiting (N/V). dicyclomine Yes [id number] 20mg Take 1 Univers 20 mg 8-03 [...] o f mg tablet 20:05: every 8 [place] (eight) Medical hours as Branch needed. pantoprazol Yes 40mg Take 40 mg Univers e 7-24 by mouth ity of (PROTONIX) 20:05: daily. [place] 40 mg EC Medical tablet Branch ondansetron Yes 4mg Take 4 mg U nivers (ZOFRAN) 4 7-24 by mouth ity o f mg tablet 20:05: every 8 [place] (eight) Medical hours as Branch needed. pantoprazol [...] o f mg tablet 20:05: every 8 [place] [address] (eight) Medical hours as Branch needed. pantoprazol [...] o f mg tablet 20:05: every 8 [place] [address] (eight) Medical hours as Branch needed. pantoprazol 2018-0 Yes 40mg Take 40 mg Univers e 7-24 by mouth ity of (PROTONIX) 20:05: daily. [place] 40 mg EC Medical tablet Branch ondansetron 2018-0 Yes 4mg Take 4 mg U nivers (ZOFRAN) 4 7-24 by mouth ity o f mg tablet 20:05: every 8 [place] [address] (eight) Medical hours as Branch needed. pantoprazol 2018-0 Yes 40mg Take 40 mg Univers e 7-24 by mouth ity of (PROTONIX) 20:05: daily. [place] 40 mg EC Medical tablet Branch ondansetron 2018-0 Yes 4mg Take 4 mg U nivers (ZOFRAN) 4 7-24 by mouth ity o f mg tablet 20:05: every 8 [place] [address] (eight) Medical hours as Branch needed. pantoprazol [...] 7-24 by mouth ity of 19:58: daily. [place] [address] Medical Branch loratadine Yes Take by Univ ers (CLARITIN 7-24 mouth ity of LIQUI-GEL) 19:58: daily. [place] 10 mg 14 Medical capsule Branch MULTIVITAMI Yes 1{tbl} Take 1 Tab Univers N ORAL 7-24 by mouth ity of 19:58: daily. [place] [address] Medical Branch loratadine Yes Take by Univ ers (CLARITIN 7-24 mouth ity of LIQUI-GEL) 19:58: daily. [place] 10 mg 14 Medical capsule Branch MULTIVITAMI Yes 1{tbl} Take 1 Tab Univers N ORAL 7-24 by mouth ity of 19:58: daily. [place] [address] Medical Branch loratadine Yes Take by Univ ers (CLARITIN 7-24 mouth ity of LIQUI-GEL) 19:58: daily. [place] 10 mg 14 Medical capsule Branch MULTIVITAMI Yes 1{tbl} Take 1 Tab Univers N ORAL 7-24 by mouth ity of 19:58: daily. [place] [address] Medical Branch loratadine 0 Yes Take by Univ ers (CLARITIN 7-24 mouth ity of LIQUI-GEL) 19:58: daily. [place] 10 mg 14 Medical capsule Branch MULTIVITAMI Yes 1{tbl} Take 1 Tab Univers N ORAL 7-24 by mouth ity of 19:58: daily. [place] [address] Medical Branch loratadine Yes Take by Univ ers (CLARITIN 7-24 mouth ity of LIQUI-GEL) 19:58: daily. [place] 10 mg 14 Medical capsule Branch MULTIVITAMI 2018-0 Yes 1{tbl} Take 1 Tab Univers N ORAL 7-24 by mouth ity of 19:58: daily. [place] 14 Medical Branch loratadine 2018-0 Yes Take by [facility] [place] [facility] ers (CLARITIN 7-24 mouth ity of LIQUI-GEL) 19:58: daily. [place] 10 mg 14 Medical capsule Branch MULTIVITAMI 2018-0 Yes 1{tbl} Take 1 Tab Univers N ORAL 7-24 by mouth ity of 19:58: daily. [place] [address] Medical Branch loratadine 2018-0 Yes Take by [facility] [place] [facility] ers (CLARITIN 7-24 mouth ity of [...] 7-24 by mouth ity of 14:58: daily. [place] [address] Medical Branch loratadine Yes Take by Univ ers (CLARITIN 7-24 mouth ity of LIQUI-GEL) 14:58: daily. [place] 10 mg 14 Medical capsule Branch MULTIVITAMI Yes 1{tbl} Take 1 Tab Univers N ORAL 7-24 by mouth ity of 14:58: daily. [place] [address] Medical Branch loratadine Yes Take by Univ ers (CLARITIN 7-24 mouth ity of LIQUI-GEL) 14:58: daily. [place] 10 mg 14 Medical capsule Branch MULTIVITAMI Yes 1{tbl} Take 1 Tab Univers N ORAL 7-24 by mouth ity of 14:58: daily. [place] [address] Medical Branch loratadine Yes Take by Univ ers (CLARITIN 7-24 mouth ity of LIQUI-GEL) 14:58: daily. [place] 10 mg 14 Medical capsule Branch MULTIVITAMI Yes 1{tbl} Take 1 Tab Univers N ORAL 7-24 by mouth ity of 14:58: daily. [place] [address] Medical Branch loratadine Yes Take by Univ ers (CLARITIN 7-24 mouth ity of LIQUI-GEL) 14:58: daily. [place] 10 mg 14 Medical capsule Branch MULTIVITAMI Yes 1{tbl} Take 1 Tab Univers N ORAL 7-24 by mouth ity of 14:58: daily. [place] [address] Medical Branch loratadine Yes Take by Univ ers (CLARITIN 7-24 mouth ity of LIQUI-GEL) 14:58: daily. [place] 10 mg 14 Medical capsule Branch proMETHazin [...] Unive rsity of PFIZER VACCINE 00:00:00 [place] [facility] kwame Branch SARS-COV-2 COVID-19 2021-05-24 Completed Unive rsity of PFIZER VACCINE 00:00:00 [place] [facility] Branch SARS-COV-2 COVID-19 2021-05-24 Completed Unive rsity of PFIZER VACCINE 00:00:00 [place] [facility]ame Branch SARS-COV-2 COVID-19 2021-05-24 Completed Unive rsity of PFIZER VACCINE 00:00:00 [place] [facility] Branch SARS-COV-2 COVID-19 2021-05-24 Completed Unive rsity of PFIZER VACCINE 00:00:00 [place] [facility] Branch SARS-COV-2 COVID-19 2021-05-24 Completed Unive rsity of PFIZER VACCINE 00:00:00 [place] [facility]ame Branch SARS-COV-2 COVID-19 2021-05-24 Completed Unive rsity of PFIZER VACCINE 00:00:00 [place] [facility]ame Branch SARS-COV-2 COVID-19 2021-05-24 Completed Unive rsity of PFIZER VACCINE 00:00:00 [place] [facility] Branch SARS-COV-2 COVID-19 2021-05-24 Completed Unive rsity of PFIZER VACCINE 00:00:00 [facility] Branch SARS-COV-2 COVID-19 2021-05-24 Completed Unive rsity of PFIZER VACCINE 00:00:00 [place] [facility] Branch SARS-COV-2 COVID-19 2021-05-24 Completed Unive rsity of PFIZER VACCINE 00:00:00 [facility] SARS-COV-2 COVID-19 2021-05-03 Completed Unive rsity of PFIZER VACCINE 00:00:00 [facility] SARS-COV-2 COVID-19 2021-05-03 Completed Unive rsity of PFIZER VACCINE 00:00:00 [facility] SARS-COV-2 COVID-19 2021-05-03 Completed Unive rsity of PFIZER VACCINE 00:00:00 [facility] SARS-COV-2 COVID-19 2021-05-03 Completed Unive rsity of PFIZER VACCINE 00:00:00 [facility] SARS-COV-2 COVID-19 2021-05-03 Completed Unive rsity of PFIZER VACCINE 00:00:00 [facility] SARS-COV-2 COVID-19 2021-05-03 Completed Unive rsity of PFIZER VACCINE 00:00:00 [facility] SARS-COV-2 COVID-19 2021-05-03 Completed Unive rsity of PFIZER VACCINE 00:00:00 [facility] SARS-COV-2 COVID-19 2021-05-03 Completed Unive rsity of PFIZER VACCINE 00:00:00 [facility] SARS-COV-2 COVID-19 2021-05-03 Completed Unive rsity of PFIZER VACCINE 00:00:00 [facility] SARS-COV-2 COVID-19 2021-05-03 Completed Unive rsity of PFIZER VACCINE 00:00:00 [facility] SARS-COV-2 COVID-19 2021-05-03 Completed Unive rsity of PFIZER VACCINE 00:00:00 [facility] SARS-COV-2 COVID-19 2021-05-03 Completed Unive rsity of PFIZER VACCINE 00:00:00 [facility] Vital Signs Vital Name Observation Time Observation Value Comments Source Systolic blood 2022-12-11 20:00:00 142 mm[Hg] Univer sity of pressure [facility] Diastolic blood 2022-12-11 20:00:00 90 mm[Hg] Unive rsity of pressure [facility] Respiratory rate 2022-12-11 20:00:00 24 /min [facility] Heart rate 2022-12-11 18:00:00 101 /min [facility] Oxygen saturation in 2022-12-11 18:00:00 93 /min University of Arterial blood by [facility] kwame Pulse oximetry Branch BMI 2022-12-11 13:55:00 35.43 kg/m2 [facility] Body temperature 2022-12-11 13:55:00 37.22 Radha [facility] Body weight 2022-12-11 13:55:00 90.719 kg [facility] Systolic blood 2022-11-18 05:34:00 152 mm[Hg] [facility] Diastolic blood 2022-11-18 05:34:00 98 mm[Hg] [facility]ive [facility] Heart rate 2022-11-18 05:34:00 88 /min [facility] Respiratory rate 2022-11-18 05:34:00 18 /min [facility] Oxygen saturation in 2022-11-18 05:34:00 97 /min University of Arterial blood by [facility] Pulse oximetry Branch Body temperature 2022-11-17 22:28:00 37.06 Rahda [facility] Body height 2022-11-17 22:28:00 160 cm [facility] Body weight 2022-11-17 22:28:00 99.791 kg [facility] BMI 2022-11-17 22:28:00 38.97 kg/m2 [facility] Heart rate 2022-08-02 02:02:00 108 /min [facility] Respiratory rate 2022-08-02 02:02:00 28 /min [facility] Oxygen saturation in 2022-08-02 02:02:00 97 /min [facility] Arterial blood by [place] [employer] kwame Pulse oximetry Branch Body temperature 2022-08-02 01:00:00 36.44 Radha [facility] Systolic blood 2022-08-01 23:29:00 145 mm[Hg] [facility]iver [facility] Diastolic blood 2022-08-01 23:29:00 103 mm[Hg] [facility] Body weight 2022-08-01 09:16:00 97.977 kg [facility] BMI 2022-08-01 09:16:00 38.26 kg/m2 [facility] Body height 2022-07-31 21:54:00 160 cm [facility] Systolic blood 2022-05-08 16:40:00 146 mm[Hg] [facility] Diastolic blood 2022-05-08 16:40:00 96 mm[Hg] [facility] Heart rate 2022-05-08 16:40:00 112 /min [facility] Body temperature 2022-05-08 16:40:00 36.78 Radha [facility] Respiratory rate 2022-05-08 16:40:00 18 /min [facility] Oxygen saturation in 2022-05-08 16:40:00 94 /min [facility] Arterial blood by [place] [employer] kwame Pulse oximetry Branch Body height 2022-05-05 23:44:00 160 cm [facility] Body weight 2022-05-05 23:37:00 81.647 kg [facility] BMI 2022-05-05 23:37:00 31.89 kg/m2 [facility] Systolic blood 2022-04-15 18:52:00 104 mm[Hg] [facility] Diastolic blood 2022-04-15 18:52:00 82 mm[Hg] [facility] Heart rate 2022-04-15 18:52:00 114 /min [facility] Oxygen saturation in 2022-04-15 18:52:00 98 /min [facility] Arterial blood by [place] [employer] kwame Pulse oximetry Branch Body temperature 2022-04-15 16:14:00 36.28 Radha [facility] Respiratory rate 2022-04-15 16:14:00 17 /min [facility] Body height 2022-04-13 21:08:00 160 cm [facility] Body weight 2022-04-13 21:08:00 91.173 kg [facility] BMI 2022-04-13 21:08:00 35.61 kg/m2 [facility] Systolic blood 2021-11-23 21:30:00 132 mm[Hg] [facility] Diastolic blood 2021-11-23 21:30:00 76 mm[Hg] [facility] Heart rate 2021-11-23 21:30:00 95 /min [facility] Respiratory rate 2021-11-23 21:30:00 13 /min [facility] Oxygen saturation in 2021-11-23 21:30:00 97 /min [facility] Arterial blood by [place] [employer] kwame Pulse oximetry Branch Body temperature 2021-11-23 20:15:00 37.56 Radha [facility] Systolic blood 2021-03-17 03:00:00 117 mm[Hg] [facility] Diastolic blood 2021-03-17 03:00:00 76 mm[Hg] [facility] Heart rate 2021-03-17 03:00:00 104 /min [facility] Respiratory rate 2021-03-17 03:00:00 28 /min [facility] Oxygen saturation in 2021-03-17 03:00:00 96 /min [facility] Arterial blood by [place] [employer] kwame Pulse oximetry Branch Body temperature 2021-03-17 00:39:00 37.11 Radha [facility] Body height 2021-03-17 00:39:00 160 cm [facility] Body weight 2021-03-17 00:39:00 58.968 kg [facility] BMI 2021-03-17 00:39:00 23.03 kg/m2 [facility] Systolic blood 2021-03-15 00:14:00 149 mm[Hg] [facility] Diastolic blood 2021-03-15 00:14:00 78 mm[Hg] [facility] Heart rate 2021-03-15 00:14:00 100 /min [facility] Body temperature 2021-03-15 00:14:00 37.33 Radha [facility] Respiratory rate 2021-03-15 00:14:00 24 /min Univ [facility] Body height 2021-03-15 00:14:00 160 cm [facility] Body weight 2021-03-15 00:14:00 58.968 kg [facility] BMI 2021-03-15 00:14:00 23.03 kg/m2 [facility] Oxygen saturation in 2021-03-15 00:14:00 98 /min University of Arterial blood by [facility] Pulse oximetry Branch Systolic blood 2021-02-19 18:00:00 131 mm[Hg] Univer sity of pressure [facility] Diastolic blood 2021-02-19 18:00:00 80 mm[Hg] [facility]ive [facility]ity of [facility] Heart rate 2021-02-19 18:00:00 83 /min [facility] Respiratory rate 2021-02-19 18:00:00 18 /min [facility] Oxygen saturation in 2021-02-19 18:00:00 100 /min [facility] of Arterial blood by [facility] Pulse oximetry Branch Body temperature 2021-02-19 15:47:00 37 Radha [facility] Body height 2021-02-19 15:47:00 160 cm [facility] [place] Body weight 2021-02-19 15:47:00 58.968 kg [facility] [place] BMI 2021-02-19 15:47:00 23.03 kg/m2 Universi [facility] Respiratory rate 2022-08-03 14:40:00 18 /min [facility] Systolic blood 2022-08-03 12:13:00 112 mm[Hg] [facility] Diastolic blood 2022-08-03 12:13:00 77 mm[Hg] [facility] Heart rate 2022-08-03 12:13:00 115 /min [facility] Oxygen saturation in 2022-08-03 12:13:00 93 /min [facility] Arterial blood by Medical nter Pulse oximetry Body temperature 2022-08-03 12:00:00 36.83 Radha [facility] Body height 2022-08-02 21:52:00 160.2 cm [facility] Body weight 2022-08-02 21:52:00 95 kg [facility] BMI 2022-08-02 21:52:00 37.02 kg/m2 [facility] BP Systolic 2022-07-24 13:31:00 136 mm[Hg] [...] CT HEAD WO CONTRAST 2022-12-11 Alfonso Mulligan [place] o f 18:36:49 [facility] URINE DRUG (IMMUNOASSAY) - 2022-12-11 Alfonso Mulligan Unive rsity of COMPREHENSIVE DRUG SCREEN 17:13:00 [facility] URINALYSIS 2022-12-11 Alfonso Mulligan [place] of 17:13:[address] [facility] [address] CHEST PULMONARY ANGIOGRAM 2022-12-11 Alfonso Mulligan Uni versity of 16:26:39 [facility] MAGNESIUM 2022-12-11 Alfonso Mulligan [place] of 14:57:00 [facility] COMP. METABOLIC PANEL (30172) 2022-12-11 Alfonso Mulligan Un iversity of 14:57:00 [facility] D-DIMER 2022-12-11 Alfonso Mulligan [place] of 14:15:00 [facility] XR CHEST 1 VW 2022-12-11 Alfonso Mulligan [place] of 14:10:26 [facility] TROPONIN I 2022-12-11 Alfonso Mulligan [place] of 14:02:00 [facility] CBC WITH DIFF 2022-12-11 Alfonso Mulligan [place] of 14:02:00 [facility] N-TERMINAL PRO-BNP 2022-12-11 Alfonso Mulligan University of 14:02:00 [facility] HB ECG ROUTINE & RHYTHM STRIP 2022-12-11 Alfonso Mulligan Un iversity of 14:01:08 [facility] CONSENT/REFUSAL FOR DIAGNOSIS 2022-12-11 Doctor Unassigned, University of AND TREATMENT 13:52:01 Eugenio Saenz [facility] ECG 12-LEAD 2022-08-03 Unknown, Hl7 [facility] 05:03:32 [facility] ECG 12-LEAD 2022-08-03 Unknown, Hl7 [facility] 05:03:32 [facility] ECG 12-LEAD 2022-08-03 Unknown, Hl7 [facility] 05:03:32 [facility] LIPID PANEL 2022-08-02 Donaldo Hightower [facility] 21:14:00 [facility] TSH/FREE T4 IF INDICATED 2022-08-02 Donaldo Hightower [facility] 21:14:00 [facility] VITAMIN B12 2022-08-[address] [facility] 21:14:00 [facility] HEMOGLOBIN A1C 2022-08-02 Donaldo Hightower [facility] 21:14:00 [facility] COMPREHENSIVE METABOLIC PANEL 2022-08-02 Donaldo Hightower [facility] 21:14:00 [facility] CBC W/PLT COUNT & AUTO 2022-08-02 Donaldo Hightower [facility] DIFFERENTIAL 21:14:00 [facility] RPR 2022-08-[address] [facility] 21:14:00 [facility] HC LAB HIV-1 AG W/HIV-1&2 AB 2022-08-[address] [facility] 21:14:00 [facility] C-REACTIVE PROTEIN 2022-08-[address] [facility] 21:14:00 [facility] CBC W/PLT COUNT & AUTO 2022-08-02 Donaldo Hightower [facility] DIFFERENTIAL 21:14:00 [facility] EKG-SCANNED 2022-08-02 Eliceo Montanez [facility] 00:00:00 Scanning [facility] CT HEAD WO CONTRAST 2022-08-01 [facility] o f 23:52:15 [facility] GALV ONLY - INFLUENZA A B RSV 2022-08-01 Letitia Chambers Un iversity of PCR 18:28:00 [facility] TRANSTHORACIC ECHO (TTE) 2022-08-01 Kylee Montez ity of COMPLETE W/ CONTRAST 14:42:00 [facility] al Branch MAGNESIUM 2022-08-01 Lorenza Her [place] of 10:42:00 [facility] BASIC METABOLIC PANEL (NA, K, 2022-08-01 Lorenza Her Un iversity of CL, CO2, GLUCOSE, BUN, 10:42:00 [place] [facility] CREATININE, [place]) Branch CBC WITH DIFF 2022-08-01 Lorenza Her [place] of 10:42:00 [facility] N-TERMINAL PRO-BNP 2022-08-01 Tc [facility] of 10:42:00 [facility] POCT GLUCOSE (AUTOMATED) 2022-08-01 Lorenza Her [facility] ity of 06:56:00 [facility] CRITICAL CARE 2022-07-31 Sav Rondon [place] of 22:31:36 [facility] URINALYSIS 2022-07-31 Sav Rondon [place] of 20:52:00 [facility] URINE DRUG (IMMUNOASSAY) - 2022-07-31 [facility] COMPREHENSIVE DRUG SCREEN W/O 20:52[place]00 [place] [facility] REFLEX Branch XR CHEST 1 VW 2022-07-31 Sav Rondon [place] of 18:45:17 [facility] LIPASE 2022-07-31 Sav Rondon of 17:58:00 [facility] TROPONIN I 2022-07-31 Sav Rondon [place] of 17:58:00 [facility] COMP. METABOLIC PANEL (26103) 2022-07-31 Sav Rondon iversity of 17:58:00 [facility] CBC WITH DIFF 2022-07-31 Sav Rondon of 17:58:00 [facility] PROTHROMBIN TIME / INR 2022-07-31 Sav Rondonit y of 17:58:00 [facility] ACTIVATED PARTIAL THRMPLAS 2022-07-31 Sav Rondon rsity of DAVID 17:58:00 [facility] N-TERMINAL PRO-BNP 2022-07-31 Sav Rondon [place] of 17:58:00 [facility] HB ECG ROUTINE & RHYTHM STRIP 2022-07-31 Sav Rondon iversity of 17:46:28 [facility] NOTICE OF PRIVACY PRACTICES 2022-07-31 Doctor Unassigned, U niversity of 17:35:38 Eugenio Saenz [facility] CONSENT/REFUSAL FOR DIAGNOSIS 2022-07-31 Doctor Unassigned, University of AND TREATMENT 17:35:13 Eugenio Saenz [facility] PHOSPHORUS 2022-05-[address] [facility] of 05:51:00 [facility] MAGNESIUM 2022-05-[address] [facility] of 05:51:00 [facility] BASIC METABOLIC PANEL (NA, K, 2022-05-08 Shefali [place] U niversity of CL, CO2, GLUCOSE, BUN, 05:51:00 [place] [facility] CREATININE[place]) Branch CBC WITH DIFF 2022-05-[address] [facility] of 05:51:00 [facility] BASIC METABOLIC PANEL (NA, K, 2022-05-[address] [facility] of CL, CO2, GLUCOSE, BUN, 07:09:00 [facility] ical CREATININE, [place]) Branch CBC WITH DIFF 2022-05-07 [place] [facility] of 07:09:00 [facility] POCT GLUCOSE (AUTOMATED) 2022-05-07 Brandyn Mcfarlane [facility] ity of 01:16:00 [facility] HB ABO GROUPING 2022-05-06 Ismael Dunn [place] of 05:07:00 [facility] BASIC METABOLIC PANEL (NA, K, 2022-05-06 Shefali [place] U niversity of CL, CO2, GLUCOSE, BUN, 05:04:00 [place] [facility] CREATININE, [place]) Branch CBC WITH DIFF 2022-05-[address] [facility] of 05:04:00 [facility] KEPPRA (LEVETIRACETAM) 2022-05-06 Shefali [facility] ty of 05:04:00 [facility] MR LUMBAR SPINE WO CONTRAST 2022-05-06 Kneedler, Ender U niversity of 02:54:37 Christopher [facility] ELECTROENCEPHALOGRAM 2022-05-06 Cintron [facility] ty of 00:00:00 [facility] BASIC METABOLIC PANEL (NA, K, 2022-05-[address] [facility] of CL, CO2, GLUCOSE, BUN, 07:57:00 [facility] ical CREATININE, CA) Branch CBC WITH DIFF 2022-05-05 [facility] of 07:57:00 [facility] PROTHROMBIN TIME / INR 2022-05-05 [facility] ersity of 07:57:00 [facility] ACTIVATED PARTIAL THRMPLAS 2022-05-05 [facility] of DAVID 07:57:00 [facility] FIBRINOGEN 2022-05-05 [facility] of 07:57:00 [facility] EMERGENCY SERVICES AGREEMENTS 2022-05-04 Doctor Unassigned, University of AND AUTHORIZATIONS 05:01:00 Eugenio Saenz [facility] VITAMIN D, 25-OH 2022-04-15 [place] of 16:53:00 [facility] MR THORACIC SPINE WO CONTRAST 2022-04-15 Soumya Chua Un iversity of 11:56:19 [facility] MR CERVICAL SPINE WO CONTRAST 2022-04-15 Soumya hCua Un iversity of 11:20:00 [facility] BASIC METABOLIC PANEL (NA, K, 2022-04-15 Charmaine Morataya Un iversity of CL, CO2, GLUCOSE, BUN, 10:36:00 [facility] ical CREATININE, [place]) Branch TEST, URINE 2022-04-15 Harshil Barix [facility] of 04:39:00 [facility] URINE DRUG (IMMUNOASSAY) - 2022-04-15 [facility] COMPREHENSIVE DRUG SCREEN 04:39:00 [facility] URINALYSIS 2022-04-15 Harshil Barix [facility] of 04:39:00 [facility] TRANSTHORACIC ECHO (TTE) 2022-04-[address] [facility] ity of COMPLETE W/ CONTRAST 16:37:03 [facility] KEPPRA (LEVETIRACETAM) 2022-04-14 Harshil [facility] y of 15:30:00 [facility] MAGNESIUM 2022-04-14 Harshil Barix [facility] of 10:03:00 [facility] BASIC METABOLIC PANEL (NA, K, 2022-04-14 John Chuaena Un iversity of CL, CO2, GLUCOSE, BUN, 10:03:00 [place] [facility] CREATININE[place]) Branch MR LUMBAR SPINE WO CONTRAST 2022-04-14 [facility] ersity of 02:48:12 [facility] MR STROKE BRAIN WO CONTRAST 2022-04-14 [facility]il [facility] ersity of 02:29:[address] [facility] [address] STROKE ANGIOGRAM HEAD 2022-04-13 Sapna Vargas [facility] ersity of 18:40:[address] [facility] [address] STROKE ANGIOGRAM NECK 2022-04-13 Sapna Vargas [facility] ersity of 18:40:[address] [facility] [address] STROKE HEAD WO CONTRAST 2022-04-13 Sapna Vargas Un iversity of 18:36:00 [facility] TROPONIN I 2022-04-13 Sapna Vargas [place] of 18:17:00 [facility] THYROID STIMULATING HORMONE 2022-04-13 [facility] ersity of 18:17:00 [facility] BASIC METABOLIC PANEL (NA, K, 2022-04-13 Sapna Vargas [place] of CL, CO2, GLUCOSE, BUN, 18:17:00 [facility] ical CREATININE, [place]) Branch LIPID PANEL ([id number])(TOTAL 2022-04-13 [facility] sity of CHOLESTEROL, TRIGLYCERIDES, 18:17:00 [facility]) Branch CBC WITHOUT DIFF 2022-04-13 Sapna Vargas [place] o f 18:17:00 [facility] GLYCOSYLATED HEMOGLOBIN (A1C) 2022-04-13 Soumya Chua Un iversity of 18:17:00 [facility] PROTHROMBIN TIME / INR 2022-04-13 Sapna Vargas [facility] sity of 18:17:00 [facility] ACTIVATED PARTIAL THRMPLAS 2022-04-13 Sapna Vargas iversity of DAVID 18:17:00 [facility] COVID-19 (ID NOW RAPID 2022-04-13 Sapna Varags [facility] 18:17:00 [facility] LAB ONLY COVID INTERPRETATION 2022-04-13 Sapna Vargas [place] of 18:17:00 [facility] HB ECG ROUTINE & RHYTHM STRIP 2022-04-13 Sapna Vargas [facility] 18:15:49 [facility] CONSENT/REFUSAL FOR DIAGNOSIS 2022-04-13 Doctor Unassigned, [place] of AND TREATMENT 18:05:14 Eugenio Saenz [facility] HOSPITAL ADMISSION 2022-04-13 Doctor Unassigned, [place] of 05:01:00 Eugenio Saenz [facility] SARS-COV-2 COVID-19 VACCINE 2022-02-19 Doctor Unassigned, U niversity of 12 YRS+,0.3ML,IM (PFIZER - 15:21:12 Eugenio Saenz [facility] URINE DRUG (IMMUNOASSAY) - 2021-11-23 Nichelle Allison U niversity of COMPREHENSIVE DRUG SCREEN W/O 21:21:00 [place] [facility] CT HEAD WO CONTRAST 2021-11-[address] [facility] ty of 20:58:00 [facility] POCT TEST 2021-11-[facility] 20:46:00 [facility] URINALYSIS 2021-11-23 [facility] o f 20:43:00 [facility] LIPASE 2021-11-23 [facility] o f 20:27:00 [facility] TROPONIN I 2021-11-23 [facility] o f 20:27:00 [facility] COMP. METABOLIC PANEL ([id number]) 2021-11-23 [facility] of 20:27:00 [facility] CBC WITH DIFF 2021-11-23 [facility] o f 20:27:00 [facility] POCT GLUCOSE (AUTOMATED) 2021-11-23 Doctor Unassigned, Univ ersity of 20:15:00 Eugenio Saenz [facility] SARS-COV-2 COVID-19 2021-05-24 Doctor Unassigned, Universit y of VACCINE,0.3ML,IM (PFIZER) 14:23:12 Eugenio Saenz [facility] SARS-COV-2 COVID-19 2021-05-03 Doctor Unassigned, Universit y of VACCINE,0.3ML,IM (PFIZER) 14:59:29 Eugenio Saenz [facility] EMERGENCY SERVICES AGREEMENTS 2021-04-16 Doctor Unassigned, [place] of AND AUTHORIZATIONS 05:01:00 Eugenio Saenz [facility] URINALYSIS 2021-03-17 Fabrice Chakraborty [place] of 03:09:00 [facility] XR CHEST 1 VW 2021-03-17 Fabrice Chakraborty [place] of 01:45:07 [facility] TROPONIN I 2021-03-17 [facility] 01:35:00 [facility] COMP. METABOLIC PANEL ([id number]) 2021-03-17 Fabrice Chakraborty Un iversity of 01:35:00 [facility] CBC WITH DIFF 2021-03-17 [facility] of 01:35:00 [facility] N-TERMINAL PRO-BNP 2021-03-17 [facility] of 01:35:00 [facility] COVID-19 (ID NOW RAPID 2021-03-17 [facility] y of TESTING) 00:58:00 [facility] CONSENT/REFUSAL FOR DIAGNOSIS 2021-03-17 Doctor Unassigned, [facility] AND TREATMENT 00:32:59 Eugenio Saenz [facility] COVID-19 (ID NOW RAPID 2021-02-19 Anali Patel [facility] y of TESTING) 17:04:[address] [facility] [address] ABDOMEN PELVIS W CONTRAST 2021-02-19 Anali Patel Uni versity of 16:41:18 [facility] LIPASE 2021-02-19 Anali Patel [place] of 15:58:00 [facility] COMP. METABOLIC PANEL ([id number]) 2021-02-19 Anali Patel Un iversity of 15:58:00 [facility] CBC WITH DIFF 2021-02-19 Anali Patel [place] of 15:58:00 [facility] URINALYSIS 2021-02-19 Anali Patel [place] of 15:58:00 [facility] NOTICE OF PRIVACY PRACTICES 2021-02-19 Doctor Unassjulee, U niversity of 15:30:46 Eugenio Saenz [facility] CONSENT/REFUSAL FOR DIAGNOSIS 2021-02-19 Doctor Unassigned, [facility] AND TREATMENT 15:30:30 Eugenio Saenz [facility] Plan of Care Planned Activity Planned Date Details Comments Source Future Scheduled 2025-08-02 Lipid panel (procedure) [facility] Test 00:00:00 [code = [id number]] Medical Ce nter Future Scheduled 2025-08-02 Lipid panel (procedure) [facility] Test 00:00:00 [code = [id number]] Medical Ce nter Future Scheduled 2025-08-02 Lipid panel (procedure) [facility] Test 00:00:00 [code = [id number]] Medical Ce nter Future Scheduled 2025-08-02 Lipid panel (procedure) [facility] Test 00:00:00 [code = [id number]] Medical Ce nter Future Scheduled 2025-08-02 Lipid panel (procedure) [facility] Test 00:00:00 [code = [id number]] Medical Ce nter Future Scheduled 2025-08-02 Lipid panel (procedure) [facility] Test 00:00:00 [code = [id number]] Medical Ce nter Future Scheduled 2025-08-02 Lipid panel (procedure) [facility] Test 00:00:00 [code = [id number]] Medical Ce nter Future Scheduled 2025-08-02 Lipid panel (procedure) [facility] Test 00:00:00 [code = [id number]] Medical Ce nter Future Scheduled 2025-08-02 Lipid panel (procedure) [facility] Test 00:00:00 [code = [id number]] Medical Ce nter Future Scheduled 2025-08-02 Lipid panel (procedure) [facility] Test 00:00:00 [code = 11229261] Medical Ce nter Future Scheduled 2025-08-02 Lipid panel (procedure) [facility] Test 00:00:00 [code = [id number]] Medical Ce nter Future Scheduled 2025-08-02 Lipid panel (procedure) [facility] Test 00:00:00 [code = [id number]] Medical Ce nter Future Scheduled 2025-08-02 Lipid panel (procedure) [facility] Test 00:00:00 [code = [id number]] Medical Ce nter Future Scheduled 2023-03-20 Influenza Vaccine (#1) [facility]00 [code = Influenza Vaccine Me dical Center (#1)] Future Scheduled 2023-03-20 INFLUENZA VACCINE (Season [facility] Test 00:00:00 Ended) [code = INFLUENZA Med ical Center VACCINE (Season Ended)] Future Scheduled 2023-03-20 INFLUENZA VACCINE (Season [facility] Test 00:00:00 Ended) [code = INFLUENZA Med ical Center VACCINE (Season Ended)] Future Scheduled 2023-03-20 INFLUENZA VACCINE (Season [facility] Test 00:00:00 Ended) [code = INFLUENZA Med ical Center VACCINE (Season Ended)] Future Scheduled 2023-03-20 INFLUENZA VACCINE (Season [facility] Test 00:00:00 Ended) [code = INFLUENZA Med ical Center VACCINE (Season Ended)] Future Scheduled 2023-03-20 INFLUENZA VACCINE (Season [facility] Test 00:00:00 Ended) [code = INFLUENZA Med ical Center VACCINE (Season Ended)] Future Scheduled 2023-03-20 INFLUENZA VACCINE (Season [facility] Test 00:00:00 Ended) [code = INFLUENZA Med ical Center VACCINE (Season Ended)] Future Scheduled 2023-03-20 Influenza Vaccine (Season [facility] Test 00:00:00 Ended) [code = Influenza Med ical Center Vaccine (Season Ended)] Future Scheduled 2023-03-20 Influenza Vaccine (Season [facility] Test 00:00:00 Ended) [code = Influenza Med ical Center Vaccine (Season Ended)] Future Scheduled 2022-07-[address] [facility] Test 00:00:00 (12+) [code = DEPRESSION Med ical Center SCREENING (12+)] Future Scheduled 2022-07-[address] [facility] Test 00:00:00 (12+) [code = DEPRESSION Med ical Center SCREENING (12+)] Future Scheduled 2022-07-[address] [facility] Test 00:00:00 (12+) [code = DEPRESSION Med ical Center SCREENING (12+)] Future Scheduled 2022-07-[address] [facility] Test 00:00:00 (12+) [code = DEPRESSION Med ical Center SCREENING (12+)] Future Scheduled 2022-07-[address] [facility] Test 00:00:00 (12+) [code = DEPRESSION Med ical Center SCREENING (12+)] Future Scheduled 2022-07-[address] [facility] Test 00:00:00 (12+) [code = DEPRESSION Med ical Center SCREENING (12+)] Future Scheduled 2022-07-[address] [facility] Test 00:00:00 (12+) [code = DEPRESSION Med ical Center SCREENING (12+)] Future Scheduled 2022-07-[address] [facility] Test 00:00:00 (12+) [code = DEPRESSION Med ical Center SCREENING (12+)] Future Scheduled 2022-07-[address] [facility] Test 00:00:00 (12+) [code = DEPRESSION Med ical Center SCREENING (12+)] Future Scheduled 2022-07-[address] [facility] Test 00:00:00 (12+) [code = DEPRESSION Med ical Center SCREENING (12+)] Future Scheduled 2022-07-[address] [facility] Test 00:00:00 (12+) [code = DEPRESSION Med ical Center SCREENING (12+)] Future Scheduled 2022-07-[address] [facility] Test 00:00:00 (12+) [code = DEPRESSION Med ical Center SCREENING (12+)] Future Scheduled 2022-07-[address] [facility] Test 00:00:00 (12+) [code = DEPRESSION Med ical Center SCREENING (12+)] Future Scheduled 2022-06-21 COVID-19 VACCINE [facility] [code = INFLUENZA VACCINE Me dical Center (#1)] Future Scheduled 2022-03-20 INFLUENZA VACCINE (#1) [facility] 00:00:00 [code = INFLUENZA VACCINE Me dical Center (#1)] Future Scheduled 2022-03-20 INFLUENZA VACCINE (#1) [facility] 00:00:00 [code = INFLUENZA VACCINE Me dical Center (#1)] Future Scheduled 2022-03-20 INFLUENZA VACCINE (#1) [facility] 00:00:00 [code = INFLUENZA VACCINE Me dical Center (#1)] Future Scheduled 2022-01-14 SHINGLES VACCINES (1 [facility] Future Scheduled 2022-01-14 SHINGLES VACCINES ([address] [facility] Test 00:00:00 2) [facility] Future Scheduled 2022-01-14 SHINGLES VACCINES ([address] [facility] Test 00:00:00 2) [code = VACCINES (1 of 2)] Future Scheduled 2013-12-15 PNEUMOCOCCAL VACCINE 0-[address] [facility] Test 00:00:00 YRS (2 - PCV) [code = [facility] Center PNEUMOCOCCAL VACCINE 0-64 YRS (2 - PCV)] Future Scheduled 2013-12-15 PNEUMOCOCCAL VACCINE 0-[address] [facility] Test 00:00:00 YRS (2 - PCV) [code = [facility] Center PNEUMOCOCCAL VACCINE 0-64 YRS (2 - PCV)] Future Scheduled 2013-12-15 PNEUMOCOCCAL VACCINE 0-[address] [facility] Test 00:00:00 YRS (2 - PCV) [code = [facility] l Center PNEUMOCOCCAL VACCINE 0-64 YRS (2 - PCV)] Future Scheduled 2013-12-15 PNEUMOCOCCAL VACCINE 0-[address] [facility] Test 00:00:00 YRS (2 - PCV) [code = [facility]ica l Center PNEUMOCOCCAL VACCINE 0-64 YRS (2 - PCV)] Future Scheduled 1993-01-14 Screening for malignant [facility] Test 00:00:00 neoplasm of cervix Medical C enter (procedure) [code = 715403046] Future Scheduled 1993-01-14 Screening for malignant [facility] Test 00:00:00 neoplasm of cervix Medical C enter (procedure) [code = 291563344] Future Scheduled 1993-01-14 Screening for malignant [facility] Test 00:00:00 neoplasm of cervix Medical C enter (procedure) [code = 144452459] Future Scheduled 1993-01-14 Screening for malignant [facility] Test 00:00:00 neoplasm of cervix Medical C enter (procedure) [code = 677975644] Future Scheduled 1993-01-14 Screening for malignant [facility] Test 00:00:00 neoplasm of cervix Medical C enter (procedure) [code = 311154002] Future Scheduled 1993-01-14 Screening for malignant [facility] Test 00:00:00 neoplasm of cervix Medical C enter (procedure) [code = 784623608] Future Scheduled 1993-01-14 Screening for malignant [facility] Test 00:00:00 neoplasm of cervix Medical C enter (procedure) [code = 263811193] Future Scheduled 1993-01-14 Screening for malignant [facility] Test 00:00:00 neoplasm of cervix Medical C enter (procedure) [code = 975147493] Future Scheduled 1993-01-14 Screening for malignant [facility] Test 00:00:00 neoplasm of cervix Medical C enter (procedure) [code = 841064753] Future Scheduled 1993-01-14 Screening for malignant [facility] Test 00:00:00 neoplasm of cervix Medical C enter (procedure) [code = 301425394] Future Scheduled 1993-01-14 Screening for malignant [facility] Test 00:00:00 neoplasm of cervix Medical C enter (procedure) [code = 349639651] Future Scheduled 1993-01-14 Screening for malignant [facility] Test 00:00:00 neoplasm of cervix Medical C enter (procedure) [code = 818591305] Future Scheduled 1993-01-14 Screening for malignant [facility] Test 00:00:00 neoplasm of cervix Medical C enter (procedure) [code = 315260385] Future Scheduled 1991-01-14 DTAP/TDAP/TD VACCINES ([address] [facility] 00:00:00 - Tdap) [code = Medical Cent er DTAP/TDAP/TD VACCINES (1 - Tdap)] Future Scheduled 1991-01-14 DTAP/TDAP/TD VACCINES ([address] [facility] 00:00:00 - Tdap) [code = Medical Cent er DTAP/TDAP/TD VACCINES (1 - Tdap)] Future Scheduled 1991-01-14 DTAP/TDAP/TD VACCINES ([address] [facility] 00:00:00 - Tdap) [code = Medical Cent er DTAP/TDAP/TD VACCINES (1 - Tdap)] Future Scheduled 1991-01-14 DTAP/TDAP/TD VACCINES ([address] [facility] Test 00:00:00 - Tdap) [code = Medical Cent er DTAP/TDAP/TD VACCINES (1 - Tdap)] Future Scheduled 1991-01-14 DTAP/TDAP/TD VACCINES ([address] [facility] Test 00:00:00 - Tdap) [code = Medical Cent er DTAP/TDAP/TD VACCINES (1 - Tdap)] Future Scheduled 1991-01-14 DTAP/TDAP/TD VACCINES ([address] [facility] Test 00:00:00 - Tdap) [code = Medical Cent er DTAP/TDAP/TD VACCINES (1 - Tdap)] Future Scheduled 1991-01-14 DTAP/TDAP/TD VACCINES ([address] [facility] 00:00:00 - Tdap) [code = Medical Cent er DTAP/TDAP/TD VACCINES (1 - Tdap)] Future Scheduled 1991-01-14 DTAP/TDAP/TD VACCINES ([address] [facility] 00:00:00 - Tdap) [code = Medical Cent er DTAP/TDAP/TD VACCINES (1 - Tdap)] Future Scheduled 1991-01-14 DTAP/TDAP/TD VACCINES ([address] [facility] 00:00:00 - Tdap) [code = Medical Cent er DTAP/TDAP/TD VACCINES (1 - Tdap)] Future Scheduled 1991-01-14 DTAP/TDAP/TD VACCINES ([address] [facility] 00:00:00 - Tdap) [code = Medical Cent er DTAP/TDAP/TD VACCINES (1 - Tdap)] Future Scheduled 1991-01-14 DTAP/TDAP/TD VACCINES ([address] [facility] 00:00:00 - Tdap) [code = Medical Cent er DTAP/TDAP/TD VACCINES (1 - Tdap)] Future Scheduled 1991-01-14 DTAP/TDAP/TD VACCINES ([address] [facility] 00:00:00 - Tdap) [code = Medical Cent er DTAP/TDAP/TD VACCINES (1 - Tdap)] Future Scheduled 1991-01-14 DTAP/TDAP/TD VACCINES ([address] [facility] 00:00:00 - Tdap) [code = Medical Cent er DTAP/TDAP/TD VACCINES (1 - Tdap)] Future Scheduled [...] HEPATITIS C Medical Center SCREENING] Future Scheduled 1987-01-[address] [facility] 00:00:00 virus screening Medical Cent er (procedure) [code = [id number]] Future Scheduled [address] [facility] Test 00:00:00 Counseling and Screening Med ical Center (12+) [code = Tobacco Cessation Counseling and Screening (12+)] Future Scheduled [address] [facility] Test 00:00:00 Counseling and Screening Med ical Center (12+) [code = Tobacco Cessation Counseling and Screening (12+)] Future Scheduled [address] [facility] 00:00:00 Counseling and Screening Med ical Center (12+) [code = Tobacco Cessation Counseling and Screening (12+)] Future Scheduled [address] [facility] Test 00:00:00 Counseling and Screening Med ical Center (12+) [code = Tobacco Cessation Counseling and Screening (12+)] Future Scheduled [address] [facility] Test 00:00:00 Counseling and Screening Med ical Center (12+) [code = Tobacco Cessation Counseling and Screening (12+)] Future Scheduled [address] [facility] Test 00:00:00 Counseling and Screening Med ical Center (12+) [code = Tobacco Cessation Counseling and Screening (12+)] Future Scheduled [address] [facility] Test 00:00:00 Counseling and Screening Med ical Center (12+) [code = Tobacco Cessation Counseling and Screening (12+)] Future Scheduled [address] [facility] Test 00:00:00 Counseling and Screening Med ical Center (12+) [code = Tobacco Cessation Counseling and Screening (12+)] Future Scheduled [address] [facility] 00:00:00 Counseling and Screening Med ical Center (12+) [code = Tobacco Cessation Counseling and Screening (12+)] Future Scheduled [address] [facility] Test 00:00:00 Counseling and Screening Med ical Center (12+) [code = Tobacco Cessation Counseling and Screening (12+)] Future Scheduled [address] [facility] 00:00:00 Counseling and Screening Med ical Center (12+) [code = Tobacco Cessation Counseling and Screening (12+)] Future Scheduled [address] [facility] Test 00:00:00 Counseling and Screening Med ical Center (12+) [code = Tobacco Cessation Counseling and Screening (12+)] Future Scheduled [address] [facility] Test 00:00:00 Counseling and Screening Med ical Center (12+) [code = Tobacco Cessation Counseling and Screening (12+)] Future Scheduled 1972 Screening for malignant [facility] Test 00:00:00 neoplasm of breast Medical C enter (procedure) [code = 544228574] Future Scheduled 1972 CT Colonography (combo) [facility] Test 00:00:00 [code = CT Colonography [facility] (combo)] Future Scheduled 1972 Screening for malignant [facility] Test 00:00:00 neoplasm of colon Medical Ce nter (procedure) [code = 967272025] Future Scheduled 1972 Screening for malignant [facility] Test 00:00:00 neoplasm of colon Medical Ce nter (procedure) [code = 242959000] Future Scheduled 1972 Screening for malignant [facility] Test 00:00:00 neoplasm of colon Medical Ce nter (procedure) [code = 880569808] Future Scheduled 1972 Screening for malignant [facility] Test 00:00:00 neoplasm of colon Medical Ce nter (procedure) [code = 476962056] Future Scheduled 1972 Sigmoidoscopy [code = [facility] S[facility]] Medical Cente r Future Scheduled 1972 Screening for malignant [facility] Test 00:00:00 neoplasm of breast Medical C enter (procedure) [code = 272597909] Future Scheduled 1972 CT Colonography (combo) [facility] Test 00:00:00 [code = CT Colonography [facility] (combo)] Future Scheduled 1972 Screening for malignant [facility] Test 00:00:00 neoplasm of colon Medical Ce nter (procedure) [code = 684761121] Future Scheduled 1972 Screening for malignant [facility] Test 00:00:00 neoplasm of colon Medical Ce nter (procedure) [code = 391357139] Future Scheduled 1972 Screening for malignant [facility] Test 00:00:00 neoplasm of colon Medical Ce nter (procedure) [code = 259298583] Future Scheduled 1972 Screening for malignant [facility] Test 00:00:00 neoplasm of colon Medical Ce nter (procedure) [code = 994632976] Future Scheduled 1972 Sigmoidoscopy [code = [facility] S[facility]oscopy] Medical Cente r Future Scheduled 1972 Screening for malignant [facility] 00:00:00 neoplasm of breast Medical C enter (procedure) [code = 701578645] Future Scheduled 1972 CT Colonography (combo) [facility] 00:00:00 [code = CT Colonography [facility] (combo)] Future Scheduled 1972 Screening for malignant [facility] 00:00:00 neoplasm of colon Medical Ce nter (procedure) [code = 959160089] Future Scheduled 1972 Screening for malignant [facility] Test 00:00:00 neoplasm of colon Medical Ce nter (procedure) [code = 743745478] Future Scheduled 1972 Screening for malignant [facility] Test 00:00:00 neoplasm of colon Medical Ce nter (procedure) [code = 909724390] Future Scheduled 1972 Screening for malignant [facility] 00:00:00 neoplasm of colon Medical Ce nter (procedure) [code = 663412852] Future Scheduled 1972 Sigmoidoscopy [code = [facility] S[facility]oscopy] Medical Cente r Future Scheduled 1972 Screening for malignant [facility] 00:00:00 neoplasm of breast Medical C enter (procedure) [code = 652216301] Future Scheduled 1972 CT Colonography (combo) [facility] 00:00:00 [code = CT Colonography [facility] (combo)] Future Scheduled 1972 Screening for malignant [facility] 00:00:00 neoplasm of colon Medical Ce nter (procedure) [code = 626591607] Future Scheduled 1972 Screening for malignant [facility] 00:00:00 neoplasm of colon Medical Ce nter (procedure) [code = 235223887] Future Scheduled 1972 Screening for malignant [facility] 00:00:00 neoplasm of colon Medical Ce nter (procedure) [code = 423850003] Future Scheduled 1972 Screening for malignant [facility] 00:00:00 neoplasm of colon Medical Ce nter (procedure) [code = 333344449] Future Scheduled 1972 Sigmoidoscopy [facility]code [facility] S[facility]oscopy] Medical Cente r Future Scheduled 1972 Screening for malignant [facility] 00:00:00 neoplasm of breast Medical C enter (procedure) [code = 408651484] Future Scheduled 1972 CT Colonography (combo) [facility] 00:00:00 [code = CT Colonography [facility] (combo)] Future Scheduled 1972 Screening for malignant [facility] 00:00:00 neoplasm of colon Medical Ce nter (procedure) [code = 422856138] Future Scheduled 1972 Screening for malignant [facility] 00:00:00 neoplasm of colon Medical Ce nter (procedure) [code = 643964404] Future Scheduled 1972 Screening for malignant [facility] 00:00:00 neoplasm of colon Medical Ce nter (procedure) [code = 573005665] Future Scheduled 1972 Screening for malignant [facility] 00:00:00 neoplasm of colon Medical Ce nter (procedure) [code = 213847595] Future Scheduled 1972 Sigmoidoscopy [facility]code [facility] S[facility]oscopy] Medical Cente r Future Scheduled 1972 Screening for malignant [facility] 00:00:00 neoplasm of breast Medical C enter (procedure) [code = 906157713] Future Scheduled 1972 CT Colonography (combo) [facility] 00:00:00 [code = CT Colonography [facility] (combo)] Future Scheduled 1972 Screening for malignant [facility] 00:00:00 neoplasm of colon Medical Ce nter (procedure) [code = 398261499] Future Scheduled 1972 Screening for malignant [facility] 00:00:00 neoplasm of colon Medical Ce nter (procedure) [code = 072087624] Future Scheduled 1972 Screening for malignant [facility] 00:00:00 neoplasm of colon Medical Ce nter (procedure) [code = 719277979] Future Scheduled 1972 Screening for malignant [facility] 00:00:00 neoplasm of colon Medical Ce nter (procedure) [code = 836255944] Future Scheduled 1972 Sigmoidoscopy [code = [facility] S[facility]oscopy] Medical Cente r Future Scheduled 1972 Screening for malignant [facility] 00:00:00 neoplasm of breast Medical C enter (procedure) [code = 338391455] Future Scheduled 1972 CT Colonography (combo) [facility] 00:00:00 [code = [facility] ([facility])] Future Scheduled 1972 Screening for malignant [facility] 00:00:00 neoplasm of colon Medical Ce nter (procedure) [code = 556872991] Future Scheduled 1972 Screening for malignant [facility] 00:00:00 neoplasm of colon Medical Ce nter (procedure) [code = 120547949] Future Scheduled 1972 Screening for malignant [facility] 00:00:00 neoplasm of colon Medical Ce nter (procedure) [code = 361337251] Future Scheduled 1972 Screening for malignant [facility] 00:00:00 neoplasm of colon Medical Ce nter (procedure) [code = 874311656] Future Scheduled 1972 Sigmoidoscopy [facility]code [facility] 1972 Screening for malignant [facility] 00:00:00 neoplasm of breast Medical C enter (procedure) [code = 413726393] Future Scheduled 1972 CT Colonography (combo) [facility] 00:00:00 [code = CT Colonography [facility] (combo)] Future Scheduled 1972 Screening for malignant [facility] 00:00:00 neoplasm of colon Medical Ce nter (procedure) [code = 571083317] Future Scheduled 1972 Screening for malignant [facility] 00:00:00 neoplasm of colon Medical Ce nter (procedure) [code = 785975145] Future Scheduled 1972 Screening for malignant [facility] 00:00:00 neoplasm of colon Medical Ce nter (procedure) [code = 180688151] Future Scheduled 1972 Screening for malignant [facility] 00:00:00 neoplasm of colon Medical Ce nter (procedure) [code = 945312691] Future Scheduled 1972 Sigmoidoscopy [code = [facility] S[facility]oidoscopy] Medical Cente r Future Scheduled 1972 Screening for malignant [facility] 00:00:00 neoplasm of breast Medical C enter (procedure) [code = 510911922] Future Scheduled 1972 CT Colonography (combo) [facility] 00:00:00 [code = [facility] ([facility])] Future Scheduled 1972 Screening for malignant [facility] 00:00:00 neoplasm of colon Medical Ce nter (procedure) [code = 169212809] Future Scheduled 1972 Screening for malignant [facility] 00:00:00 neoplasm of colon Medical Ce nter (procedure) [code = 937841419] Future Scheduled 1972 Screening for malignant [facility] 00:00:00 neoplasm of colon Medical Ce nter (procedure) [code = 782521735] Future Scheduled 1972 Screening for malignant [facility] 00:00:00 neoplasm of colon Medical Ce nter (procedure) [code = 110301038] Future Scheduled 1972 Sigmoidoscopy [facility]code [facility] S[facility]oidoscopy] Medical Cente r Future Scheduled 1972 Screening for malignant [facility] 00:00:00 neoplasm of breast Medical C enter (procedure) [code = 291371464] Future Scheduled 1972 CT Colonography (combo) [facility] 00:00:00 [code = CT Colonography [facility] (combo)] Future Scheduled 1972 Screening for malignant [facility] 00:00:00 neoplasm of colon Medical Ce nter (procedure) [code = 361264252] Future Scheduled 1972 Screening for malignant [facility] 00:00:00 neoplasm of colon Medical Ce nter (procedure) [code = 435512145] Future Scheduled 1972 Screening for malignant [facility] 00:00:00 neoplasm of colon Medical Ce nter (procedure) [code = 591341433] Future Scheduled 1972 Screening for malignant [facility] 00:00:00 neoplasm of colon Medical Ce nter (procedure) [code = 319379534] Future Scheduled 1972 Sigmoidoscopy [facility]code [facility] S[facility]oscopy] Medical Cente r Future Scheduled 1972 Screening for malignant [facility] 00:00:00 neoplasm of breast Medical C enter (procedure) [code = 396644193] Future Scheduled 1972 CT Colonography (combo) [facility] 00:00:00 [code = [facility] ([facility])] Future Scheduled 1972 Screening for malignant [facility] 00:00:00 neoplasm of colon Medical Ce nter (procedure) [code = 671357776] Future Scheduled 1972 Screening for malignant [facility] 00:00:00 neoplasm of colon Medical Ce nter (procedure) [code = 157989066] Future Scheduled 1972 Screening for malignant [facility] 00:00:00 neoplasm of colon Medical Ce nter (procedure) [code = 101767062] Future Scheduled 1972 Screening for malignant [facility] 00:00:00 neoplasm of colon Medical Ce nter (procedure) [code = 518178473] Future Scheduled 1972 Sigmoidoscopy [facility] 1972 Screening for malignant [facility] 00:00:00 neoplasm of breast Medical C enter (procedure) [code = 823306397] Future Scheduled 1972 CT Colonography (combo) [facility] 00:00:00 [code = CT Colonography [facility] (combo)] Future Scheduled 1972 Screening for malignant [facility] 00:00:00 neoplasm of colon Medical Ce nter (procedure) [code = 833568459] Future Scheduled 1972 Screening for malignant [facility] 00:00:00 neoplasm of colon Medical Ce nter (procedure) [code = 202331908] Future Scheduled 1972 Screening for malignant [facility] 00:00:00 neoplasm of colon Medical Ce nter (procedure) [code = 554740460] Future Scheduled 1972 Screening for malignant [facility] 00:00:00 neoplasm of colon Medical Ce nter (procedure) [code = 037111174] Future Scheduled 1972 Sigmoidoscopy [code = [facility] S[facility]oidoscopy] Medical Cente r Future Scheduled 1972 Screening for malignant [facility] 00:00:00 neoplasm of breast Medical C enter (procedure) [code = 221035417] Future Scheduled 1972 CT Colonography (combo) [facility] 00:00:00 [code = CT Colonography [facility] (combo)] Future Scheduled 1972 Screening for malignant [facility] 00:00:00 neoplasm of colon Medical Ce nter (procedure) [code = 441053205] Future Scheduled 1972 Screening for malignant [facility] 00:00:00 neoplasm of colon Medical Ce nter (procedure) [code = 564334546] Future Scheduled 1972 Screening for malignant [facility] 00:00:00 neoplasm of colon Medical Ce nter (procedure) [code = 132613221] Future Scheduled 1972 Screening for malignant [facility] 00:00:00 neoplasm of colon Medical Ce nter (procedure) [code = 162128702] Future Scheduled 1972 Sigmoidoscopy [facility]code [facility] S[facility]oscopy] Medical Cente r Goal Plan of Care Note [code = 49397-6] Goal Plan of Care Note [code = 45088-9] Goal Plan of Care Note [code = 96983-8] Goal Plan of Care Note [code = 99046-4] Goal Plan of Care Note [code = 96140-2] Goal Plan of Care Note [code = 91517-2] Goal Plan of Care Note [code = 87320-3] Goal Plan of Care Note [code = 05224-8] Goal Plan of Care Note [code = 28953-3] Goal Plan of Care Note [code = 81609-7] Goal Plan of Care Note [code = 53254-0] Goal Plan of Care Note [code = 77735-6] Goal Plan of Care Note [code = 92997-3] Goal Plan of Care Note [code = 23251-4] Goal Plan of Care Note [code = 65129-3] Goal Plan of Care Note [code = 88235-3] Goal Plan of Care Note [code = 00467-2] Goal Plan of Care Note [code = 49655-8] Goal Plan of Care Note [code = 47150-6] Goal Plan of Care Note [code = 37186-6] Goal Plan of Care Note [code = 86893-5] Goal Plan of Care Note [code = 83549-6] Goal Plan of Care Note [code = 32209-7] Goal Plan of Care Note [code = 52877-6] Goal Plan of Care Note [code = 95071-0] Goal Plan of Care Note [code = 05027-6] Goal Plan of Care Note [code = 87285-1] Goal Plan of Care Note [code = 19838-3] Goal Plan of Care Note [code = 04506-1] Goal Plan of Care Note [code = 56356-5] Goal Plan of Care Note [code = 34315-3] Goal Plan of Care Note [code = 47570-4] Goal Plan of Care Note [code = 50346-6] Goal Plan of Care Note [code = 05772-1] Goal Plan of Care Note [code = 15366-2] Encounters Start End Encounter Admission Attending Care Care Encounter Source Date/Time Date/Time Type Type Clinicians Facility Department ID 2021-05-20 Emergency [facility] [id number] [facility] [id number] [facility] 12:43:40 [facility] 2022-12-11 2022-12-11 Emergency X Alfonso MULLIGAN [facility] ERT [id number] Univers 08:56:00 15:29:00 [facility] 2022-12-11 2022-12-11 Emergency Alfonso Mulligan [facility] 1.2.840.114 10 [id number] Univers 08:56:00 15:29:00 Lorelei HERNANDEZ 350.1.13.10 i [facility] 4.2.7.2.686 [facility] [id number] [facility] [address] 2022-11-17 2022-11-18 [facility] [id number] Univers 17:25:00 01:19:00 [facility] 2022-11-17 2022-11-18 Emergency [facility] 1.2.791.914 [id number] Univers 17:25:00 01:19:00 Ritchie HERNANDEZ 350.1.13.10 [place] [id number] [facility] [address] 2022-08-28 2022-08-28 Patient Shy Beckman 1.2.840.114 10 [id number] Univers 00:00:00 00:00:00 Outreach E WALLACE 350.1.13.10 i [place] [id number] [facility] [address] 2022-08-20 2022-08-20 Patient Shy Beckman 1.2.840.114 10 [id number] [facility] 00:00:00 00:00:00 Outreach E [place] 350.1.13.10 [place] [id number] [facility] [address] [place] 2022-08-02 2022-08-03 [facility] [id number] 17:30:00 14:29:00 Encounter Jen Yepez [facility] 2022-08-02 2022-08-03 [facility] [id number] 17[facility]30[facility]00 14:29:00 [facility] 2022-08-03 Outpatient [facility] Neurology [id number] [facility] 17:30[facility]00 14:29:00 [facility] 2022-08-03 2022-08-03 Orders [facility] [id number] 00:00:00 00:00:00 Only [facility] 2022-08-03 2022-08-03 Orders [facility] [id number] 00:00:00 00:00:00 Only [facility] 2022-08-02 2022-08-02 Travel [facility] [id number] [facility] 00:[facility] 00:[facility]:00 [facility] 2022-08-02 2022-08-02 Travel [facility] [id number] [facility] 00:00:00 00:00:00 [facility] 2022-07-31 2022-08-01 Inpatient X ESSENCE MOKEVIN SHEA [id number] Univers 11:42:00 21:48:00 LORENZA ity of [facility] 2022-07-31 2022-08-01 [facility] Sav Rondon [facility] 1.2.840.1 14 [id number] Univers 11:42:00 21:48:00 Encounter Essence Lorenzamarsha [facility] 350.1.13.10 ity of [place].2.[place] [facility] [id number] [facility] [address] 2022-08-01 2022-08-01 Transition Corey YANETCorbin 1.2.840.114 [id number] Univers 00:00:00 00:00:00 of Care Maria Teresa WALLACE 350.1.13.10 ity of [place] 4.2.7.2.686 [facility] [id number] [facility] [address] 2022-07-28 2022-07-28 Outpatient SFA SFA [id number] Adria 14:41:38 14:41:38 0109 F Brawley 2022-07-28 2022-07-28 Outpatient 2vl8kh65- [id number] 3d x1in68-8 00:00:00 00:00:00 Visit [id number] 540-4579-8 -9gd1-5is fa1-9db46d 36m043qi0 537df0 2022-07-24 2022-07-24 Outpatient SFA SFA [id number] Adria 13:24:40 13:24:40 0105 F Mauricio 2022-05-23 2022-05-23 Outpatient SFA SFA [id number] Adria 14:51:01 14:51:01 1104 F Mauricio 2022-05-23 2022-05-23 Outpatient y8zjwo92- [id number] f9 pbwn05-u 00:00:00 00:00:00 Visit h83i-0aw2 62f-4bb7-b -e18n-9h2 33a-6o7908 [id number] 7850ee 2022-05-04 2022-05-08 Outpatient X CHANTEL MATTHEWS [facility] S [place] [id number] Univers 20:22:00 14:44:[address] ity [facility] [place] [place] 2022-05-04 2022-05-08 Emergency Brandyn Mcfarlane 1.2.840.1 14 [id number] Univers 20:22:00 14:44:00 Chantel Matthews 350.1.13 .10 ity of [facility] 4.2.7.2.686 [facility] as [id number] [place] [id number] Branch 2022-04-13 2022-04-15 Inpatient X [facility] [id number] Univers 13:06:00 15:00:00 [facility] 2022-04-13 2022-04-15 Hospital Sapna Vargas 1.2.84 0.114 [id number] Univers 13:06:00 15:00:00 Encounter Glory Esteves [place] 350. 1.13.10 ity of [facility] 4.2.7.2.686 [place] [id number] [facility] [address] 2022-02-19 2022-02-19 Imm/Inj Vaccine, [facility] [place] 1.2.840.114 [id number] Univers 10:20:00 10:30:00 Visit Jose Frederick 350.1.13.10 [place] [facility] [id number] [facility] [address] 2022-02-19 2022-02-19 Outpatient R JOSE FREDERICK [facility] [id number] Univers 10:20:00 10:20:[address] [facility] [place] 2021-11-23 2021-11-23 Emergency X ESTEFANY [facility] ERT [id number] Univers 15:07:00 17:03:[address] [facility] [place] 2021-11-23 2021-11-23 Emergency Sav Rondon [facility] 1.2.840. 114 [id number] Univers 15:07:00 17:03:00 Nichelle Allison 350.1.13. 10 ity of [place] 4.2.7.2.686 [facility] [id number] [facility] [address] 2021-11-21 2021-11-21 Outpatient R [facility] [id number] Univers 09:40:00 09:40:00 ity of [facility] 2021-05-24 2021-05-24 Outpatient R JOSE FREDERICK [facility] [id number] Univers 09:30:00 09:30:00 ity of [facility] 2021-05-24 2021-05-24 Imm/Inj Vaccine, [facility] [place] 1.2.840.114 [id number] Univers 08:47:51 08:57:51 Visit Otoniel, Jose ESTEBAN 350.1.13.10 [place] [facility] [id number] [facility] [address] 2021-05-03 2021-05-03 Outpatient R JOSE FREDERICK [facility] [id number] Univers 09:40:00 09:59:35 ity of [facility] 2021-05-03 2021-05-03 Imm/Inj Vaccine, [facility] [place] 1.2.840.114 [id number] Univers 09:17:43 09:59:35 Visit Otoniel Jose Esteban 350.1.13.10 [place] [id number] [facility] [address] 2021-04-16 2021-04-16 Orders Doctor THEODORE 1.2.840.114 [id number] Univers 00:00:00 00:00:00 Only Unassigned, [place] 350.1.13.10 ity of Eugenio Saenz [facility] 4.2.7.2.686 [facility] [id number] [facility] [address] 2021-03-17 2021-03-17 Telephone EWELINA Nava 1.2.361.212 [id number] Univers 00:00:00 00:00:00 Aneatrice [place] 350.1.13.10 ity of [facility] 4.2.7.2.686 Javier as [phone] [address] 2021-03-16 2021-03-16 Emergency Jose Cmary [facility] 1.2.840.114 [id number] Univers 20:08:00 23:24:00 Fabrice Julio Cesar 350.1.13.10 i ty of [address] [place] [id number] [address] 2021-03-14 2021-03-14 Urgent Lydia Desouza [facility] 1.2.840.114 [id number] Univers 18:59:34 20:19:13 Care Unknown, Attending Health 350.1.13.10 ity [facility] 4.2.7.2.686 Javier as Prem?Blea [phone] [address] Medical Office [facility] 2021-03-14 2021-03-14 Outpatient R UNKNOWN, [facility] [id number] Univers 19:00:00 19:00:[address] [facility] [place] 2021-02-19 2021-02-19 [facility] 1.2.718.189 [id number] Univers 10:49:00 14:48:00 nAali Hernandez 350.1.13.10 i ty of [address] [place] 4[place].2.[place] [id number] [address] 2019-03-09 2019-03-09 [facility] 1.2.840.114 [id number] 00:00:00 00:00:00 Yehuda Hernandez [address] 4.2.7.2.686 Professio [id number] [address] 2019-03-09 2019-03-09 [facility] 1.2.840.114 [id number] Univers 00:00:00 00:00:00 Yehuda Hernandez 350.1.13.10 ity [facility] [place] [id number] [address] Results Test Description Test Time Test Comments Results Result Comments Source [facility] 2022-12-11 17:14:06 Test Item Value Reference Range Interpretation Comme nts MAGNESIUM (test code = 0693070185) 1.9 mg/dL 1.7-2.4 Lab Interpretation (test code = 21431-5) Normal [facility]OL[facility] (39629)2022-12-11 15:16:25 Test Item Value Reference Range Interpretation Comments NA (test code = 139 mmol/L 135-145 5866073897) K (test code = 3.5 mmol/L 3.5-5.0 7270369257) CL (test code = 107 mmol/L 98-108 0016781555) CO2 TOTAL (test code = 24 mmol/L 23-31 8988845056) AGAP (test code = 8 2-16 1555393678) BUN (test code = 9 mg/dL 7-23 5123731394) GLUCOSE (test code = 129 mg/dL 70-110 H 1500680733) CREATININE (test code = 0.68 mg/dL 0.50-1.04 8312861702) TOTAL BILI (test code = 0.5 mg/dL 0.1-1.2 8425710539) CALCIUM (test code = 8.9 mg/dL 8.6-10.6 8789942500) T PROTEIN (test code = 6.3 g/dL 6.3-8.2 0430058958) ALBUMIN (test code = 3.8 g/dL 3.5-5.0 8328956774) ALK PHOS (test code = 87 U/L 34-122 9529349232) ALTv (test code = 24 U/L 5-35 1742-6) AST(SGOT) (test code = 21 U/L 13-40 7034756196) eGFR (test code = 91.6 mL/min/1.73m2 4671057896) LYNDSAY (test code = LYNDSAY) Association of [...] tests). Lab Interpretation Abnormal (test code = 68404-9) [facility] [id number] 15:10:45 Test Item Value Reference Range Interpretation Comments TROPONIN I (test code = 0.015 ng/mL <=0.034 7322451967) LYNDSAY (test code = LYNDSAY) Reference (Normal) [...] biotin. Lab Interpretation Normal (test code = 28590-7) [facility]-TERMINAL [id number] 15:07:48 Test Item Value Reference Range Interpretation Comments NT-proBNP (test code = 1460 pg/mL <=125 H 0119075115) LYNDSAY (test code = LYNDSAY) Biotin has been reported to cause a negative bias, interpret results relative to patient's use of biotin. Lab Interpretation (test Abnormal code = 26878-6) [facility]lineD-[id number] 14:45:24 Test Item Value Reference Interpretation Comments Range D-DIMER (test code = 0.99 See_Comment H [Autom ated 5679257817) message] The system which generated this result [...] diagnosis. Lab Interpretation Abnormal (test code = 50626-9) [facility] WITH [id number] 14:14:48 Test Item Value Reference Range Interpretation Comments WBC (test code = 7.86 See_Comment [Automated 6207-2) message] The sy stem which generated this result transmitted reference range : 4.30 - 11.10 10*3/?L. The reference range was not used to interpret this result as normal/abnormal . RBC (test code = 5.13 See_Comment [Automated 299-8) message] The sy stem which generated this [...] RDW-SD (test code = 47.8 fL 39.0-49.9 28039-5) RDW-CV (test code = 16.9 % 12.0-15.5 H 788-0) PLT (test code = 507 See_Comment H [Automated 777-3) message] The sy stem which generated this result transmitted reference range : 166 - 358 10*3/ ?L. The reference r zoe was not used to interpret this result as normal/abnormal . MPV (test code = 8.2 fL 9.5-12.9 L 58092-9) NRBC/100 WBC (test 0.0 See_Comment [Automat ed code = 7497827857) message] The system which generated this result transmitted reference range : 0.0 - 10.0 /100 WBCs. The refer ence range was not u sed to interpret th is result as normal/abnormal . NRBC x10^3 (test code See_Comment [Auto mated = 0255748988) message] The s ystem which generated this result transmitted reference range : 10*3/?L. The reference range was not used to interpret this result as normal/abnormal . GRAN MAT (NEUT) % 64.5 % (test code = 770-8) IMM GRAN % (test code 0.30 % = 8072204242) LYMPH % (test code = 25.6 % 736-9) MONO % (test code = 7.5 % 5905-5) EOS % (test code = 1.0 % 713-8) BASO % (test code = 1.1 % 706-2) GRAN MAT x10^3(ANC) 5.07 10*3/uL 1.88-7.09 (test code = 7514272638) IMM GRAN x10^3 (test 0.00-0.06 code = 1069603097) LYMPH x10^3 (test code 2.01 10*3/uL 1.32-3.29 = 731-0) MONO x10^3 (test code 0.59 10*3/uL 0.33-0.92 = 742-7) EOS x10^3 (test code = 0.08 10*3/uL 0.03-0.39 711-2) BASO x10^3 (test code 0.09 10*3/uL 0.01-0.07 H = 704-7) Lab Interpretation Abnormal (test code = 28943-6) [facility]PR2023-01-17 13:17:22 Test Item Value Reference Range Interpretation Comments RPR SCREEN (EarlyTracks) (test code = Nonreactive Nonreactive 420) HEMOGLOBIN [id number] 10:39:49 Test Item Value Reference Range Interpretation Comments HEMOGLOBIN A1C 5.8 % See_Comment H [Automated m essage] ELECTROPHORESIS (EarlyTracks) The system which (test code = 3811) generated this result transmitted ref erence range: <=5.6%. The reference range was not used to int erpret this result as normal/abnormal . "The A1c is measured using a [facility]-certified method. HbA1c value equal to or greater than 6.5% as thediagnosis cutoff for diabetes. An HbA1c value of 5.7- 6.4% indicates increased risk for diabetes (prediabetes)."Acute Care Physician ID - ADM VITAMIN [id number] 22:48:27 Test Item Value Reference Range Interpretation Comments VITAMIN B12 (EarlyTracks) (test code = 227 pg/mL 213-816 774) Acute Care Physician ID - MARCOTSH/FREE T4 IF [id number] 22:08:28 Test Item Value Reference Range Interpretation Comments THYROID STIMULATING HORMONE 3.309 uIU/mL 0.350-4.940 (EarlyTracks) (test code = 772) Acute Care Physician ID - JSHIV-1 ANTIGEN WITH HIV-1/2 [id number] 22:08:28 Test Item Value Reference Range Interpretation Comments HIV-1 ANTIGEN WITH HIV 1\\T\\2 Nonreactive Nonreactive ANTIBODY (2) (EarlyTracks) (test code = 2586) Acute Care Physician ID - JSC-REACTIVE [id number] 21:49:44 Test Item Value Reference Range Interpretation Comments C-REACTIVE PROTEIN (EarlyTracks) (test 0.35 mg/dL 0.00-0.50 code = 676) Acute Care Physician ID - JSCOMPREHENSIVE METABOLIC [id number] 21:49:43 Test Item Value Reference Range Interpretation [...] not as accur ate as Creatinine Graciela queazda in predicting glom erular filtration rate . Estimated GFR is not appl icable for dialysis patien ts Acute Care Physician ID - JSLIPID [id number] 21:49:43 Test Item Value Reference Range Interpretation [...] Borderline 130-159 High 160-189 Very High >=190 Acute Care Physician ID - JSCBC W/PLT COUNT & AUTO [id number] 21:34:03 Test Item Value Reference Range Interpretation [...] Interpretation Comments Height (test code = in 7061306038) Weight (test code = lbs 1906494862) Systolic BP (test code = mmHg 3418283308) Diastolic BP (test code mmHg = 1662969903) Heart Rate (test code = bpm 1777078153) BSA (test code = 2.00 m2 1866021938) Ao root diam (test code 3.20 cm = 0249865182) Aortic root (test code = 3.2 cm 5279180945) Ao root annulus (test 3.2 cm code = 9504652310) LVOT diameter (test code 1.99 cm = 6045555459) LVOT area (test code = 3.10 cm2 1759851934) LVIDD (test code = 5.10 cm 2284034043) Left Ventricular End 123.0 mL Diastolic Volume by Teichholz Method (test code = 8535345) IVS (test code = 1.34 cm 5611725057) Interventricular Septum 1.34 cm Diastolic Thickness by 2D (test code = 5579692) LVPWD (test code = 1.34 cm 1216524968) PW (test code = 1.34 cm 0.6-1.0 8099981279) EF(Teich) (test code = 41.80 % 0638187701) LVIDS (test code = 4.00 cm 6286919542) Left Ventricular End 71.5 mL Systolic Volume by Teichholz Method (test code = 1591043) FS (test code = 21 % 5737678052) EF - 2D (test code = 41.80 % 77144624) LA size (test code = 4.6 cm 2186712465) Pulmonic Regurgitant End 119.4 cm/s Max Velocity (test code = 6202332453) LAV(MOD-sp4) (test code 95.00 mL = 2045548354) E wave decelartion time 0.15 s (test code = 7943659637) MV stenosis pressure 1/2 45.6 ms time (test code = 8262978786) MV Peak A Evette (test code 123.8 cm/s = 0403513982) MV Peak E Evette (test code 109.7 cm/s = 4875179825) E/A ratio (test code = ratio 0083570582) MR max PG (test code = 87.20 mm[Hg] 2577083668) MR max evette (test code = 466.90 cm/s 1440488934) Mr max evette (test code = 466.9 m/s 1648445634) MV Prop V (test code = 51.00 cm/s 3384158226) MV E/e' septal (test 8.1 cm/s code = 7585473102) Tapse (test code = 2.21 cm 4658714305) LVOT stroke volume (test 49.80 cm3 code = 5182011510) LVOT peak evette (test code 89.1 cm/s = 5863949301) LVOT mn grad (test code mmHg = 8087002141) AV LVOT peak gradient mmHg (test code = 4619901575) LVOT peak VTI (test code 16.0 cm = 7843401029) LV V1 mean (test code = 64.30 cm/s 8778309343) Aortic valve mean 133.8 cm/s velocity (test code = 6211649823) Ao peak evette (test code = 175.3 cm/s 5355012100) Ao VTI (test code = 32.2 cm 3688248232) AV area by cont VTI 1.6 cm2 (test code = 0217702470) AV area peak evette (test 1.6 cm2 code = 4132720302) Ao max PG (test code = 12.30 mm[Hg] 0690912827) AV peak gradient (test mmHg code = 4894016757) AV valve area (test code 1.55 cm2 = 2295794628) AV mean gradient (test mmHg code = 9193460778) AV regurgitation 358.5 ms pressure 1/2 time (test code = 2321754993) AI dec slope (test code 364.20 cm/s2 = 3096355737) AI max evette (test code = 445.80 cm/s 2961793094) AI max PG (test code = 79.50 mm[Hg] 9991593259) Radiology Study observation (narrative) (test code = 39619-4) LYNDSAY (test code = LYNDSAY) ?Left?Ventricle: Left [...] mL of Lumason ultrasound enhancing agent used. [facility] GLU[facility] (AUTOMATED)2022-08-01 10:43:32 Test Item Value Reference Range Interpretation Comments POCT GLU (test code = 9116987248) 148 mg/dL 70-110 H Lab Interpretation (test code = Abnormal 86501-7) [facility]lineACTIVATED PARTIAL THRMPLAS [id number] 18:39:45 Test Item Value Reference Range Interpretation Comments APTT Patient (test See_Comment [Automat ed code = 3173-2) message] The system which generated this result transmitted reference range : 23 - 38 Seconds . The reference range was not used to interpr et this result as normal/abnormal . LYNDSAY (test code = LYNDSAY) The [facility] patient population mean normal value for aPTT is 30 seconds. Lab Interpretation Normal (test code = 28820-4) [facility] ShorelinePROTHROMBIN TIME / [id number] 18:37:42 Test Item Value Reference Range Interpretation [...] tions. Lab Interpretation (test Normal code = 27084-6) [facility]line[facility]OPONIN [id number] 18:32:01 Test Item Value Reference Interpretation Comments Range TROPONIN I (test 0.019 ng/mL See_Comment [Automated code = 8239674371) message] The system which generated this result [...] biotin. Lab Interpretation Normal (test code = 37984-2) [facility]line[facility]-TERMINAL [id number] 18:29:01 Test Item Value Reference Range Interpretation Comments NT-proBNP (test code 2770 pg/mL See_Comment H [Autom ated = 8634530208) message] The system which generated this result transmitted reference range : <=125. The reference range was not used to interpret this result as normal/abnormal . LYNDSAY (test code = LYNDSAY) Biotin has been reported to cause a negative bias, interpret results relative to patient's use of biotin. Lab Interpretation Abnormal (test code = 38715-0) [facility]. METABOLIC PANEL (39887)2022-07-31 18:21:42 Test Item Value Reference Range Interpretation Comments NA (test code = 136 mmol/L 135-145 9448036733) K (test code = 4.6 mmol/L 3.5-5.0 9247990458) CL (test code = 104 mmol/L 98-108 6200137492) CO2 TOTAL (test code = 26 mmol/L 23-31 3258285531) AGAP (test code = 2-16 4492950796) BUN (test code = 9 mg/dL 7-23 1298046061) GLUCOSE (test code = 97 mg/dL 70-110 9870631334) CREATININE (test code = 0.64 mg/dL 0.50-1.04 2943257832) TOTAL BILI (test code = 0.5 mg/dL 0.1-1.0 5218365728) CALCIUM (test code = 8.2 mg/dL 8.6-10.6 L 4963870252) T PROTEIN (test code = 6.5 g/dL 6.3-8.2 0490473667) ALBUMIN (test code = 3.9 g/dL 3.5-5.0 3988366477) ALK PHOS (test code = 93 U/L 34-122 8386958093) ALTv (test code = 18 U/L 5-35 1742-6) AST(SGOT) (test code = 19 U/L 13-40 9075630570) eGFR (test code = mL/min/1.73m2 0248393880) LYNDSAY (test code = LYNDSAY) Association of [...] tests). Lab Interpretation Abnormal (test code = 40818-8) [facility]lineLIPASE2023-01-12 18:21:01 Test Item Value Reference Range Interpretation Comments LIPASE (test code = 8731716772) 54 U/L 0-220 Lab Interpretation (test code = Normal 01082-2) [facility] WITH [id number] 18:07:00 Test Item Value Reference Range Interpretation [...] (test code = 53.1 fL 39.0-49.9 H 10187-9) RDW-CV (test code = 17.0 % 12.0-15.5 H 788-0) PLT (test code = See_Comment H [Automated 777-3) message] The sy stem which generated this result transmitted reference range : 166 - 358 10*3/ ?L. The reference r zoe was not used to interpret this result as normal/abnormal . MPV (test code = 8.2 fL 9.5-12.9 L 10138-6) NRBC/100 WBC (test See_Comment [Automat ed code = 0706575092) message] The system which generated this result transmitted reference range : 0.0 - 10.0 /100 WBCs. The refer ence range was not u sed to interpret th is result as normal/abnormal . NRBC x10^3 (test code See_Comment [Auto mated = 9382385642) message] The s ystem which generated this result transmitted reference range : 10*3/?L. The reference range was not used to interpret this result as normal/abnormal . GRAN MAT (NEUT) % 64.0 % (test code = 770-8) IMM GRAN % (test code 0.40 % = [id number]) LYMPH % (test code = 27.3 % 736-9) MONO % (test code = 6.5 % 5905-5) EOS % (test code = 1.1 % 713-8) BASO % (test code = 0.7 % 706-2) GRAN MAT x10^3(ANC) 5.46 10*3/uL 1.88-7.09 (test code = [id number]) IMM GRAN x10^3 (test 0.03 10*3/uL 0.00-0.06 code = [id number]) LYMPH x10^3 (test code 2.32 10*3/uL 1.32-3.29 = 731-0) MONO x10^3 (test code 0.55 10*3/uL 0.33-0.92 = 742-7) EOS x10^3 (test code = 0.09 10*3/uL 0.03-0.39 711-2) BASO x10^3 (test code 0.06 10*3/uL 0.01-0.07 = 704-7) Lab Interpretation Abnormal (test code = 29812-0) [facility] METABOLIC PANEL (NA, K, CL, CO2, GLUCOSE, BUN, CREATININE, CA)2022-05-08 06:37:01 Test Item Value Reference Range Interpretation Comments NA (test code = 137 mmol/L 135-145 [id number]) K (test code = 3.8 mmol/L 3.5-5 2581478458) CL (test code = 103 mmol/L 98-108 1864793433) CO2 TOTAL (test code = 24 mmol/L 23-31 2375479058) AGAP (test code = 2-16 0918485160) BUN (test code = 13 mg/dL 7-23 3537932088) GLUCOSE (test code = 90 mg/dL 70-110 4288502153) CREATININE (test code = 0.69 mg/dL 0.5-1.04 6007872090) CALCIUM (test code = 8.5 mg/dL 8.6-10.6 L 4426475481) eGFR (test code = mL/min/1.73m2 7678103415) LYNDSAY (test code = LYNDSAY) Association of [...] tests). Lab Interpretation Abnormal (test code = 82651-4) [facility]IUM2022-10-20 06:37:01 Test Item Value Reference Range Interpretation Comments MAGNESIUM (test code = 6821124594) 2.1 mg/dL 1.7-2.4 Lab Interpretation (test code = Normal 32995-6) [facility]linePHOSPHORUS2022-10-20 06:37:01 Test Item Value Reference Range Interpretation Comments PHOSPHORUS (test code = 5765445842) 4.7 mg/dL 2.5-5 Lab Interpretation (test code = Normal 22614-2) [facility]lineCB WITH [id number] 06:11:54 Test Item Value Reference Range Interpretation Comments WBC (test code = See_Comment [Automated 6466-2) message] The sy stem which generated this result transmitted reference range : 4.30 - 11.10 10*3/?L. The reference range was not used to interpret this result as normal/abnormal . RBC (test code = See_Comment [Automated 929-7) message] The sy stem which generated this [...] (test code = 51.0 fL 39-49.9 H 78721-2) RDW-CV (test code = 16.5 % 12-15.5 H 788-0) PLT (test code = See_Comment H [Automated 777-3) message] The sy stem which generated this result transmitted reference range : 166 - 358 10*3/ ?L. The reference r zoe was not used to interpret this result as normal/abnormal . MPV (test code = 8.3 fL 9.5-12.9 L 76867-5) NRBC/100 WBC (test See_Comment [Automat ed code = 6438422123) message] The system which generated this result transmitted reference range : 0.0 - 10.0 /100 WBCs. The refer ence range was not u sed to interpret th is result as normal/abnormal . NRBC x10^3 (test code See_Comment [Auto mated = 7163612650) message] The s ystem which generated this result transmitted reference range : 10*3/?L. The reference range was not used to interpret this result as normal/abnormal . GRAN MAT (NEUT) % 64.5 % (test code = 770-8) IMM GRAN % (test code 0.50 % = 7111692718) LYMPH % (test code = 27.1 % 736-9) MONO % (test code = 6.6 % 5905-5) EOS % (test code = 0.6 % 713-8) BASO % (test code = 0.7 % 706-2) GRAN MAT x10^3(ANC) 5.28 10*3/uL 1.88-7.09 (test code = 7350759650) IMM GRAN x10^3 (test 0.04 10*3/uL 0-0.06 code = 3436695766) LYMPH x10^3 (test code 2.22 10*3/uL 1.32-3.29 = 731-0) MONO x10^3 (test code 0.54 10*3/uL 0.33-0.92 = 742-7) EOS x10^3 (test code = 0.05 10*3/uL 0.03-0.39 711-2) BASO x10^3 (test code 0.06 10*3/uL 0.01-0.07 = 704-7) Lab Interpretation Abnormal (test code = 59457-5) [facility]linePOCT GLUCOSE (AUTOMATED)2022-05-07 01:18:10 Test Item Value Reference Range Interpretation Comments POCT GLU (test code = 0493447771) 120 mg/dL 70-110 H Lab Interpretation (test code = Abnormal 50772-4) [facility] ShorelineType and Screen - ONCE [id number] 05:46:35 Test Item Value Reference Range Interpretation Comments ABO & RH (test code O POSITIVE Performe d at [facility] = 20) Laboratory [facility]3 [facility] s [address]Dtwj Free: [phone] A No. [id number] IAT (test code = Negative Performed a t [facility] 1185) Laboratory [facility] Blood [facility]3 [facility] [address]Zdel Free: [phone] A No. [id number] [facility]lineBASIC METABOLIC PANEL (NA, K, CL, CO2, GLUCOSE, BUN, CREATININE, CA)2022-05-05 08:22:57 Test Item Value Reference Range Interpretation Comments NA (test code = 136 mmol/L 135-145 7195820465) K (test code = 4.9 mmol/L 3.5-5 7375459550) CL (test code = 108 mmol/L 98-108 3577597573) CO2 TOTAL (test code = 22 mmol/L 23-31 L 2439055464) AGAP (test code = 2-16 7194864565) BUN (test code = 12 mg/dL 7-23 7863868579) GLUCOSE (test code = 155 mg/dL 70-110 H 8477336236) CREATININE (test code = 0.63 mg/dL 0.5-1.04 9277032120) CALCIUM (test code = 8.4 mg/dL 8.6-10.6 L 1202045157) eGFR (test code = mL/min/1.73m2 4266064309) LYNDSAY (test code = LYNDSAY) Association of [...] tests). Lab Interpretation Abnormal (test code = 69035-1) [facility] ShorelinePROTHROMBIN TIME / [id number] 08:22:37 Test Item Value Reference Range Interpretation Comments PROTIME PATIENT (test See_Comment [Auto mated message] code = 5964-2) The system [employer] generated this result transmitted ref erence range: 10.1 - 1 2.6 Seconds. The re ference range was not u sed to interpret this result as normal/abnor mal. INR (test code = 6301-6) Nor mal INR <1.1; Warfarin Therap eutic range 2.0 to 3. 0 or 2.5 to 3.5, dep ending upon the indica tions. Lab Interpretation (test Normal code = 55186-6) [facility] ShorelineaPTT2022-10-17 08:22:37 Test Item Value Reference Range Interpretation Comments APTT Patient (test code = See_Comment [ Automated message] 3173-2) The system whic h generated this result transmitted ref erence range: 26 - 36 Seconds. The re ference range was not u sed to interpret this result as normal/abnor mal. Lab Interpretation (test Normal code = 20682-2) [facility] ShorelineFIBRINOGEN2022-10-17 08:22:37 Test Item Value Reference Range Interpretation Comments Fibrinogen (test code = 4431367789) 294 mg/dL 167-453 Lab Interpretation (test code = Normal 76742-9) [facility]CB WITH [id number] 08:15:01 Test Item Value Reference Range Interpretation Comments WBC (test code = See_Comment [Automated 4590-2) message] The sy stem which generated this result transmitted reference range : 4.30 - 11.10 10*3/?L. The reference range was not used to interpret this result as normal/abnormal . RBC (test code = See_Comment [Automated 679-8) message] The sy stem which generated this [...] (test code = 52.9 fL 39-49.9 H 00452-8) RDW-CV (test code = 16.8 % 12-15.5 H 788-0) PLT (test code = See_Comment H [Automated 777-3) message] The sy stem which generated this result transmitted reference range : 166 - 358 10*3/ ?L. The reference r zoe was not used to interpret this result as normal/abnormal . MPV (test code = 8.3 fL 9.5-12.9 L 39723-3) NRBC/100 WBC (test See_Comment [Automat ed code = 3562323619) message] The system which generated this result transmitted reference range : 0.0 - 10.0 /100 WBCs. The refer ence range was not u sed to interpret th is result as normal/abnormal . NRBC x10^3 (test code See_Comment [Auto mated = 8380263675) message] The s ystem which generated this result transmitted reference range : 10*3/?L. The reference range was not used to interpret this result as normal/abnormal . GRAN MAT (NEUT) % 86.4 % (test code = 770-8) IMM GRAN % (test code 0.40 % = 9484785427) LYMPH % (test code = 11.7 % 736-9) MONO % (test code = 1.1 % 5905-5) EOS % (test code = 0.0 % 713-8) BASO % (test code = 0.4 % 706-2) GRAN MAT x10^3(ANC) 6.36 10*3/uL 1.88-7.09 (test code = 7933556006) IMM GRAN x10^3 (test 0.03 10*3/uL 0-0.06 code = 4498662874) LYMPH x10^3 (test code 0.86 10*3/uL 1.32-3.29 L = 731-0) MONO x10^3 (test code 0.08 10*3/uL 0.33-0.92 L = 742-7) EOS x10^3 (test code = 0.03-0.39 L 711-2) BASO x10^3 (test code 0.03 10*3/uL 0.01-0.07 = 704-7) Lab Interpretation Abnormal (test code = 58679-7) [facility] ShorelineVITAMIN D, [id number] 20:14:03 Test Item Value Reference Range Interpretation Comments VIT D 25OH (test code = 22 ng/mL 25-80 L 64979-2) LYNDSAY (test code = LYNDSAY) Deficiency: <20 ng/mLInsufficiency: 20-24 ng/mLOptimal: 25-80 ng/mL Lab Interpretation (test Abnormal code = 39505-3) [facility]BAU[facility] (NA, K, CL, CO2, GLUCOSE, BUN, CREATININE, CA)2022-04-15 11:27:57 Test Item Value Reference Range Interpretation Comments NA (test code = 138 mmol/L 135-145 1262393157) K (test code = 3.9 mmol/L 3.5-5 3733004316) CL (test code = 106 mmol/L 98-108 2417489856) CO2 TOTAL (test code = 23 mmol/L 23-31 0519126059) AGAP (test code = 2-16 3009201372) BUN (test code = 10 mg/dL 7-23 2879333115) GLUCOSE (test code = 91 mg/dL 70-110 9803585151) CREATININE (test code = 0.65 mg/dL 0.5-1.04 5273527007) CALCIUM (test code = 8.1 mg/dL 8.6-10.6 L 1999274418) eGFR (test code = mL/min/1.73m2 0575554734) LYNDSAY (test code = LYNDSAY) Association of [...] tests). Lab Interpretation Abnormal (test code = 86473-9) [facility] Protocol - Transthoracic echo (TTE) 2022-04-14 22:07:33 Test Item Value Reference Range Interpretation Comments Height (test code = in 9025143245) Weight (test code = lbs 9419219285) Systolic BP (test code = mmHg 7859624115) Diastolic BP (test code mmHg = 6598644802) Heart Rate (test code = bpm 8784455673) BSA (test code = 1.94 m2 3967629403) TASV (test code = 15.5 cm/s 5672275772) LVIDD (test code = 6.00 cm 7657031879) Left Ventricular End 183.0 mL Diastolic Volume by Teichholz Method (test code = 7181816) IVS (test code = 1.09 cm 5675021441) Interventricular Septum 1.09 cm Diastolic Thickness by 2D (test code = 0265168) LVPWD (test code = 0.94 cm 8255012119) PW (test code = 0.94 cm 0.6-1.5 4289371161) EF(Teich) (test code = 40.30 % 0759921360) LVIDS (test code = 4.80 cm 6797417036) Left Ventricular End 109.2 mL Systolic Volume by Teichholz Method (test code = 1496477) FS (test code = 20 % 7182440926) EF - 2D (test code = 40.30 % 66027090) LVOT diameter (test code 2.05 cm = 6579238224) LVOT area (test code = 3.30 cm2 6283146639) Ao root diam (test code 3.10 cm = 9722056908) Aortic root (test code = 3.1 cm 4502678643) Ao root annulus (test 3.1 cm code = 4213309620) LA size (test code = 4.2 cm 6234261374) LAV(MOD-sp4) (test code 64.90 mL = 8306617000) MV Peak A Evette (test code 115.7 cm/s = 9058924006) E wave decelartion time 0.15 s (test code = 8464020156) MV Peak E Evette (test code 106.2 cm/s = 3839554895) E/A ratio (test code = ratio 8658104444) LVOT stroke volume (test 48.30 cm3 code = 4928697773) LVOT peak evette (test code 78.4 cm/s = 0467950968) LVOT mn grad (test code mmHg = 4645919147) AV LVOT peak gradient mmHg (test code = 3255114527) LVOT peak VTI (test code 14.7 cm = 4088507531) LV V1 mean (test code = 51.40 cm/s 7256808068) Ao peak evette (test code = 154.7 cm/s 7559098206) AV area peak evette (test 1.7 cm2 code = 5296555524) Ao max PG (test code = 9.60 mm[Hg] 8216336339) AV peak gradient (test mmHg code = 3751788540) AV regurgitation 257.3 ms pressure 1/2 time (test code = 9770824896) AI dec slope (test code 498.10 cm/s2 = 5727526474) AI max evette (test code = 437.60 cm/s 9122643004) AI max PG (test code = 77.80 mm[Hg] 9541584167) Tapse (test code = 2.19 cm 1815569479) LA Volume Index (BP) 32.0 mL/m2 (test code = 4078108467) LA volume (BP) (test 62.1 mL code = 7889246573) LAV(MOD-sp2) (test code 52.70 mL = 2755847313) A4C EF (test code = 44.80 % 1986101092) EF(sp4-el) (test code = 45.20 % 4295169298) SV(MOD-sp4) (test code = 71.20 mL 0316395759) SV(sp4-el) (test code = 73.90 mL 4453069354) LV Diastolic Volume (BP) 146.3 mL (test code = 4052071778) A2C EF (test code = 52.00 % 4572133527) EF(MOD-bp) (test code = 46.70 % 5937563741) EF(sp2-el) (test code = 52.40 % 2187178670) LV Systolic Volume (BP) 77.9 mL (test code = 0265456737) SV(MOD-bp) (test code = 68.40 mL 7221762478) SV(MOD-sp2) (test code = 69.20 mL 3479901814) EF (test code = 5481381705) Left Ventricular Stroke 68.4 mL Volume by 2-D Biplane-MOD (test code = 0336715) Radiology Study observation (narrative) (test code = 34731-7) LYNDSAY (test code = LNYDSAY) ?Left?Ventricle: Left ventricle size is normal. Normal [...] agent used and saline contrast was performed. [facility]lineKEPPRA (LEVETIRACETAM)2022-04-14 16:48:36 Test Item Value Reference Range Interpretation Comments KEPPRA (test code = 12-46 L 5309006722) LYNDSAY (test code = LYNDSAY) Therapeutic range: 12-46 ?g/mL ? ?Toxic: Not well established.Test developed and characteristics determined by [facility] Laboratory Services. Lab Interpretation Abnormal (test code = 83880-8) [facility] Metabolic Panel (Na, K, Cl, CO2, Glucose, BUN, Creatinine, Ca)2022-04-14 10:50:11 Test Item Value Reference Range Interpretation Comments NA (test code = 136 mmol/L 135-145 9931091023) K (test code = 3.8 mmol/L 3.5-5 4179864834) CL (test code = 105 mmol/L 98-108 4985698020) CO2 TOTAL (test code = 25 mmol/L 23-31 6747020754) AGAP (test code = 2-16 8518946003) BUN (test code = 9 mg/dL 7-23 8215072397) GLUCOSE (test code = 101 mg/dL 70-110 4426287179) CREATININE (test code = 0.66 mg/dL 0.5-1.04 7611424393) CALCIUM (test code = 8.1 mg/dL 8.6-10.6 L 0994687782) eGFR (test code = mL/min/1.73m2 8992479299) LYNDSAY (test code = LYNDSAY) Association of [...] tests). Lab Interpretation Abnormal (test code = 14655-3) [facility] ShorelineMagensium, [id number] 10:50:11 Test Item Value Reference Range Interpretation Comments MAGNESIUM (test code = 7680670581) 1.9 mg/dL 1.7-2.4 Lab Interpretation (test code = Normal 72701-7) [facility] ShorelineThyroid Stimulating [id number] 22:21:44 Test Item Value Reference Range Interpretation Comments TSH (test code = See_Comment Biotin has been 3191825159) reported to cau se a negative bias, interpret resul ts relative to pat radha's use of biotin. [Automated mess age] The system [employer] generated this result transmitted ref erence range: 0.45 - 4 .70 mIU/L. The refe rence range was not u sed to interpret this result as normal/abnor mal. Lab Interpretation (test Normal code = 45342-3) [facility] ShorelineGLYCOSYLATED HEMOGLOBIN (A1C)2022-04-13 21:53:43 Test Item Value Reference Range Interpretation Comments HGB A1C (test code = 5.8 % 4-5.7 H 4548-4) LYNDSAY (test code = LYNDSAY) Reference RangesNormal: <5.7%Prediabetes: 5.7 - 6.4%Diabetes: > 6.5% Lab Interpretation (test Abnormal code = 98121-4) [facility]lineFA[facility] L[facility] (08491)(TOTAL CHOLESTEROL, TRIGLYCERIDES, HDL)2022-04-13 21:34:53 Test Item Value Reference Range Interpretation Comments CHOL (test code = 201 mg/dL 120-200 H 6341627126) HDL (test code = 56 mg/dL See_Comment [Automated message] 9647325363) The system [employer] generated this result transmit sherice reference range : >=50. The refer ence range was not u sed to interpret th is result as normal/abnormal . HDLC RATIO (test code = See_Comment [Au tomated message] 1493654329) The system [employer] generated this result transmit sherice reference range : <=4.5. The refe rence range was not u sed to interpret th is result as normal/abnormal . TRIG (test code = 355 mg/dL 30-170 H 3857612835) LDL CHOL (test code = 74 mg/dL See_Comment [Auto mated message] 81672-6) The system [employer] generated this result transmit sherice reference range : <=160. The refe rence range was not u sed to interpret th is result as normal/abnormal . VLDL (test code = 71 mg/dL 5-60 H 0427872306) Lab Interpretation (test Abnormal code = 03539-8) [facility] ShorelineTroponin I - Code [id number] 18:46:27 Test Item Value Reference Interpretation Comments Range TROPONIN I (test 0.013 ng/mL See_Comment [Automated code = 6042926901) message] The system which generated this result [...] biotin. Lab Interpretation Normal (test code = 46295-3) [facility] Metabolic Panel (NA, K, CL, CO2, Glucose, BUN, Creatinine, CA) - Code [id number] 18:35:07 Test Item Value Reference Range Interpretation Comments NA (test code = 136 mmol/L 135-145 4610085419) K (test code = 4.3 mmol/L 3.5-5 2578370443) CL (test code = 105 mmol/L 98-108 6757436335) CO2 TOTAL (test code = 27 mmol/L 23-31 9559055134) AGAP (test code = 2-16 1250271333) BUN (test code = 8 mg/dL 7-23 1979081363) GLUCOSE (test code = 130 mg/dL 70-110 H 7672524595) CREATININE (test code = 0.75 mg/dL 0.5-1.04 9901553671) CALCIUM (test code = 8.5 mg/dL 8.6-10.6 L 6889923643) eGFR (test code = mL/min/1.73m2 6149439943) LYNDSAY (test code = LYNDSAY) Association of [...] tests). Lab Interpretation Abnormal (test code = 72516-0) [facility]lineaPTT - Code [id number] 18:32:46 Test Item Value Reference Range Interpretation Comments APTT Patient (test See_Comment [Automat ed code = 3173-2) message] The system which generated this result transmitted reference range : 23 - 38 Seconds . The reference range was not used to interpr et this result as normal/abnormal . LYNDSAY (test code = LYNDSAY) The [facility] patient population mean normal value for aPTT is 30 seconds. Lab Interpretation Normal (test code = 92414-5) [facility] ShorelineProthrombin Time / INR - Code [id number] 18:30:45 Test Item Value Reference Range Interpretation Comments PROTIME PATIENT (test See_Comment [Auto mated message] code = 5964-2) The system [employer] generated this result transmitted ref erence range: 12.0 - 1 4.7 Seconds. The re ference range was not u sed to interpret this result as normal/abnor mal. INR (test code = 6301-6) Nor mal INR <1.1; Warfarin Therap eutic range 2.0 to 3. 0 or 2.5 to 3.5, dep ending upon the indica tions. Lab Interpretation (test Normal code = 57206-7) [facility] ShorelineCBC without Diff - Code [id number] 18:23:07 Test Item Value Reference Range Interpretation Comments WBC (test code = 6690-2) See_Comment [A utomated message] The system [employer] generated this result transmit sherice reference range : 4.30 - 11.10 10*3/?L. The reference range was not used to interpret this result as normal/abnormal . RBC (test code = 789-8) See_Comment [Au tomated message] The system [employer] generated this result transmit sherice reference range [...] See_Comment H [Au tomated message] The system [facility] generated this result transmit sherice reference range : 166 - 358 10*3/?L. The reference range was not used to interpret this result as normal/abnormal . MPV (test code = 8.1 fL 9.5-12.9 L 12165-9) RDW-CV (test code = 16.1 % 12-15.5 H 788-0) RDW-SD (test code = 49.2 fL 39-49.9 87350-5) NRBC x10^3 (test code = See_Comment [Au tomated message] 7187972274) The system [employer] generated this result transmit sherice reference range : 10*3/?L. The reference range was not used to interpret this result as normal/abnormal . NRBC/100 WBC (test code See_Comment [Au tomated message] = 1276411419) The system [facility] generated this result transmit sherice reference range : 0.0 - 10.0 /100 WBC s. The reference r zoe was not used to interpret this result as normal/abnormal . IPF % (test code = 6260365249) Lab Interpretation (test Abnormal code = 67282-0) [facility] ShorelineJESS [id number] 21:06:40 Test Item Value Reference Interpretation Comments Range TROPONIN I (test 0.005 ng/mL See_Comment [Automated code = 0500427756) message] The system which generated this result [...] biotin. Lab Interpretation Normal (test code = 97072-4) [facility]. METABOLIC PANEL (95608)2021-11-23 20:55:42 Test Item Value Reference Range Interpretation Comments NA (test code = 137 mmol/L 135-145 8620552999) K (test code = 4.3 mmol/L 3.5-5.0 3141344347) CL (test code = 104 mmol/L 98-108 6035053722) CO2 TOTAL (test code = 22 mmol/L 23-31 L 5261071577) AGAP (test code = 2-16 6477940197) BUN (test code = 15 mg/dL 7-23 6707964497) GLUCOSE (test code = 114 mg/dL 70-110 H 6681673484) CREATININE (test code = 0.68 mg/dL 0.50-1.04 8691536984) TOTAL BILI (test code = 0.5 mg/dL 0.1-1.6 5488187118) CALCIUM (test code = 9.1 mg/dL 8.6-10.6 1900007438) T PROTEIN (test code = 7.3 g/dL 6.3-8.2 4598735160) ALBUMIN (test code = 4.4 g/dL 3.5-5.0 9128858524) ALK PHOS (test code = 243 U/L 34-122 H 0755297356) ALTv (test code = 24 U/L 5-35 1742-6) AST(SGOT) (test code = 30 U/L 13-40 0562248249) eGFR (test code = mL/min/1.73m2 4687329565) LYNDSAY (test code = LYNDSAY) Association of [...] tests). Lab Interpretation Abnormal (test code = 82995-9) [facility]lineLIPASE2022-05-07 20:55:22 Test Item Value Reference Range Interpretation Comments LIPASE (test code = 0307188734) 96 U/L 0-220 Lab Interpretation (test code = Normal 01797-2) [facility]linePOCT [id number] 20:46:00 Test Item Value Reference Range Interpretation Comments POCT PREG (test code = 1605) negative On board controls acceptable with present C Line (test code = 3574) POCT PREG LOT # (test code = 3575) [id number] POCT PREG TEST DATE (test 04/18/2023 code = 3576) Lab Interpretation (test code = Normal 60968-6) [facility] WITH [id number] 20:40:38 Test Item Value Reference Range Interpretation [...] (test code = 53.7 fL 39.0-49.9 H 51565-6) RDW-CV (test code = 17.2 % 12.0-15.5 H 788-0) PLT (test code = See_Comment H [Automated 777-3) message] The sy stem which generated this result transmitted reference range : 166 - 358 10*3/ ?L. The reference r zoe was not used to interpret this result as normal/abnormal . MPV (test code = 8.5 fL 9.5-12.9 L 03832-1) NRBC/100 WBC (test See_Comment [Automat ed code = 1329786829) message] The system which generated this result transmitted reference range : 0.0 - 10.0 /100 WBCs. The refer ence range was not u sed to interpret th is result as normal/abnormal . NRBC x10^3 (test code <0.01 See_Comment [Auto mated = 1853693399) message] The s ystem which generated this result transmitted reference range : 10*3/?L. The reference range was not used to interpret this result as normal/abnormal . GRAN MAT (NEUT) % 53.7 % (test code = 770-8) IMM GRAN % (test code 0.90 % = 0330940648) LYMPH % (test code = 32.6 % 736-9) MONO % (test code = 10.1 % 5905-5) EOS % (test code = 1.5 % 713-8) BASO % (test code = 1.2 % 706-2) GRAN MAT x10^3(ANC) 4.98 10*3/uL 1.88-7.09 (test code = 1681075390) IMM GRAN x10^3 (test 0.08 10*3/uL 0.00-0.06 H code = 1343161827) LYMPH x10^3 (test code 3.02 10*3/uL 1.32-3.29 = 731-0) MONO x10^3 (test code 0.94 10*3/uL 0.33-0.92 H = 742-7) EOS x10^3 (test code = 0.14 10*3/uL 0.03-0.39 711-2) BASO x10^3 (test code 0.11 10*3/uL 0.01-0.07 H = 704-7) Lab Interpretation Abnormal (test code = 96736-5) [facility] GLUCOSE (AUTOMATED)2021-11-23 20:17:33 Test Item Value Reference Range Interpretation Comments POCT GLU (test code = 111 mg/dL 70-110 H Notifi ed Provider [id number]) Lab Interpretation (test Abnormal code = 26666-6) [facility] TEST, THINPREP, [id number] 00:00:00 Test Item Value Reference Range Interpretation Comments SOURCE: (test code = Endocervical 8001) SLIDES: (test code = 1 8011) LMP: (test code = 8021) 06/03/2021 SPECIMEN ADEQUACY: (test (NOTE) code = 51154) INTERPRETATION: (test ASCUS/EPITH. code = 99469) ABNORMALITY; SEE BELOW DIRECTOR OF HEALTH EDUCATION: (test Anusha code = 8101) CHANA Sepulveda(ASCP)IAC PATHOLOGIST Nahid Russell, INTERPRETATION BY: (test M.D. code = 8122) LOCATION: (test code = (NOTE) 01424) CPT: (test code = 8140) (NOTE) PAP TEST, THINPREP, [id number] 00:00:00 Test Item Value Reference Range Interpretation Comments SOURCE: (test code = Endocervical 8001) SLIDES: (test code = 1 8011) LMP: (test code = 8021) 06/03/2021 SPECIMEN ADEQUACY: (test (NOTE) code = 08584) INTERPRETATION: (test ASCUS/EPITH. code = 55445) ABNORMALITY; SEE BELOW DIRECTOR OF HEALTH EDUCATION: (test Anusha code = 8101) CHANA Sepulveda(ASCP)[facility] PATHOLOGIST Nahid Russell, INTERPRETATION BY: (test M.D. code = 8122) LOCATION: (test code = (NOTE) 25565) CPT: (test code = 8140) (NOTE) PAP TEST, THINPREP, [id number] 00:00:00 Test Item Value Reference Range Interpretation Comments SOURCE: (test code = Endocervical 8001) SLIDES: (test code = 1 8011) LMP: (test code = 8021) 06/03/2021 SPECIMEN ADEQUACY: (test (NOTE) code = 24917) INTERPRETATION: (test ASCUS/EPITH. code = 87730) ABNORMALITY; SEE BELOW DIRECTOR OF HEALTH EDUCATION: (test Anusha code = 8101) CHANA Sepulveda(ASCP)[facility] PATHOLOGIST Nahid Russell, INTERPRETATION BY: (test M.D. code = 8122) LOCATION: (test code = (NOTE) 52859) CPT: (test code = 8140) (NOTE) PAP TEST, THINPREP, [id number] 00:00:00 Test Item Value Reference Range Interpretation Comments SOURCE: (test code = Endocervical 8001) SLIDES: (test code = 1 8011) LMP: (test code = 8021) 06/03/2021 SPECIMEN ADEQUACY: (test (NOTE) code = 57145) INTERPRETATION: (test ASCUS/EPITH. code = 31638) ABNORMALITY; SEE BELOW DIRECTOR OF HEALTH EDUCATION: (test Anusha code = 8101) CHANA Sepulveda(ASCP)[facility] PATHOLOGIST Nahid Russell, INTERPRETATION BY: (test M.D. code = 8122) LOCATION: (test code = (NOTE) 62936) CPT: (test code = 8140) (NOTE) HPV HIGH RISK WITH GENOTYPE, [id number] 00:00:00 Test Item Value Reference Range Interpretation Comments HPV HIGH RISK INTERP (test code = POSITIVE 34810) HPV 16 (test code = 01483) POSITIVE HPV 18 (test code = 08983) NEGATIVE HPV, HR, OTHER GENOTYPES (test code POSITIVE = 25195) HPV HIGH RISK WITH GENOTYPE, [id number] 00:00:00 Test Item Value Reference Range Interpretation Comments HPV HIGH RISK INTERP (test code = POSITIVE 23725) HPV 16 (test code = 41445) POSITIVE HPV 18 (test code = 66329) NEGATIVE HPV, HR, OTHER GENOTYPES (test code POSITIVE = 32354) HPV HIGH RISK WITH GENOTYPE, [id number] 00:00:00 Test Item Value Reference Range Interpretation Comments HPV HIGH RISK INTERP (test code = POSITIVE 58826) HPV 16 (test code = 15972) POSITIVE HPV 18 (test code = 73440) NEGATIVE HPV, HR, OTHER GENOTYPES (test code POSITIVE = 37178) HPV HIGH RISK WITH GENOTYPE, [id number] 00:00:00 Test Item Value Reference Range Interpretation Comments HPV HIGH RISK INTERP (test code = POSITIVE 66989) HPV 16 (test code = 73290) POSITIVE HPV 18 (test code = 02715) NEGATIVE HPV, HR, OTHER GENOTYPES (test code POSITIVE = 12234) [id number] 03:22:48 Test Item Value Reference Range Interpretation Comments APPEARANCE (test code = Hazy Clear A 1895547370) COLOR (test code = Yellow Yellow 8852218445) PH (test code = 4.8-8.0 4073701901) SP GRAVITY (test code = 1.003-1.030 8638828014) GLU U QUAL (test code = Normal Normal 3426356905) BLOOD (test code = Negative Negative Interfere nce from 9760391400) ascorbic acid m ay cause false neg ative results. KETONES (test code = 5 mg/dL Negative A 4760858856) PROTEIN (test code = Negative Negative 2887-8) UROBILIN (test code = 4.0 mg/dL Normal A 1548575999) BILIRUBIN (test code = Negative Negative 6601688176) NITRITE (test code = Negative Negative 2440790663) LEUK GRUPO (test code = Negative Negative 9137785988) RBC/HPF (test code = See_Comment [Autom ated message] 1721485354) The system [employer] generated this result transmitted ref erence range: 0 - 3 HP F. The reference range was not used to int erpret this result as normal/abnormal . WBC/HPF (test code = <1 See_Comment [Autom ated message] 1720034650) The system [employer] generated this result transmitted ref erence range: 0 - 5 HP F. The reference range was not used to int erpret this result as normal/abnormal . BACTERIA (test code = Few Negative A 1919225631) SQ EPITH (test code = HPF 9361406156) Lab Interpretation Abnormal (test code = 16161-6) [facility] 03:22:48 Test Item Value Reference Range Interpretation Comments APPEARANCE (test code = Hazy Clear A 6958264420) COLOR (test code = Yellow Yellow 6282393903) PH (test code = 4.8-8.0 5389229530) SP GRAVITY (test code = 1.003-1.030 5382927359) GLU U QUAL (test code = Normal Normal 3086509160) BLOOD (test code = Negative Negative 0537722856) KETONES (test code = 5 mg/dL Negative A 8987658195) PROTEIN (test code = Negative Negative 2887-8) UROBILIN (test code = 4.0 mg/dL Normal A 8898627019) BILIRUBIN (test code = Negative Negative 0893104892) NITRITE (test code = Negative Negative 5351480494) LEUK GRUPO (test code = Negative Negative 1578532786) RBC/HPF (test code = See_Comment [Autom ated message] 5487511470) The system [employer] generated this result transmit sherice reference range : 0 - 3 HPF. The refe rence range was not u sed to interpret th is result as normal/abnormal . WBC/HPF (test code = <1 See_Comment [Autom ated message] 7392106755) The system [employer] generated this result transmit sherice reference range : 0 - 5 HPF. The refe rence range was not u sed to interpret th is result as normal/abnormal . BACTERIA (test code = Few Negative A 8684360262) SQ EPITH (test code = HPF 2499725209) Lab Interpretation (test Abnormal code = 93934-0) [facility] [id number] 02:45:00 Test Item Value Reference Interpretation Comments Range TROPONIN I (test 0.002 ng/mL See_Comment [Automated code = 6793277392) message] The system which generated this result [...] biotin. Lab Interpretation Normal (test code = 50923-1) [facility] [id number] 02:45:00 Test Item Value Reference Range Interpretation Comments TROPONIN I (test code = 0.002 ng/mL See_Comment [Au tomated 0491204893) message] The sy stem which generated this result transmitted reference range : <=0.034. The reference range was not used to interpret this result as normal/abnormal . LYNDSAY (test code = LYNDSAY) Lab Interpretation Normal (test code = 35730-1) [facility] [id number] 02:41:57 Test Item Value Reference Range Interpretation Comments NT-proBNP (test code 169 pg/mL See_Comment H [Autom ated = 7234055786) message] The system which generated this result transmitted reference range : <=125. The reference range was not used to interpret this result as normal/abnormal . LYNDSAY (test code = LYNDSAY) Biotin has been reported to cause a negative bias, interpret results relative to patient's use of biotin. Lab Interpretation Abnormal (test code = 21302-2) [facility] [id number] 02:41:57 Test Item Value Reference Range Interpretation Comments NT-proBNP (test code = 169 pg/mL See_Comment H [Aut omated message] 0375836997) The system [employer] generated this result transmit sherice reference range : <=125. The refe rence range was not u sed to interpret th is result as normal/abnormal . LYNDSAY (test code = LYNDSAY) Lab Interpretation (test Abnormal code = 90587-2) [facility] METABOLIC PANEL (69541)2021-03-17 02:09:13 Test Item Value Reference Range Interpretation Comments NA (test code = 137 mmol/L 135-145 7246389913) K (test code = 4.2 mmol/L 3.5-5.0 3026683553) CL (test code = 102 mmol/L 98-108 8180856654) CO2 TOTAL (test code = 25 mmol/L 23-31 8254728892) AGAP (test code = 2-16 9427509979) BUN (test code = 18 mg/dL 7-23 1298467608) GLUCOSE (test code = 144 mg/dL 70-110 H 9262068316) CREATININE (test code = 0.77 mg/dL 0.50-1.04 3765034066) TOTAL BILI (test code = 0.4 mg/dL 0.1-1.3 2765780940) CALCIUM (test code = 8.9 mg/dL 8.6-10.6 3064341322) T PROTEIN (test code = 6.8 g/dL 6.3-8.2 0443796162) ALBUMIN (test code = 3.9 g/dL 3.5-5.0 9706563692) ALK PHOS (test code = 84 U/L 34-122 8718871879) ALTv (test code = 13 U/L 5-35 1742-6) AST(SGOT) (test code = 17 U/L 13-40 4773263074) eGFR (test code = mL/min/1.73m2 0808271832) LYNDSAY (test code = LYNDSAY) Association of [...] tests). Lab Interpretation Abnormal (test code = 34474-6) [facility]. METABOLIC PANEL (09517)2021-03-17 02:09:13 Test Item Value Reference Range Interpretation Comments NA (test code = 8640420409) 137 mmol/L 135-145 K (test code = 9147808580) 4.2 mmol/L 3.5-5.0 CL (test code = 6034075762) 102 mmol/L 98-108 CO2 TOTAL (test code = 4231178439) 25 mmol/L 23-31 AGAP (test code = 1644727508) 2-16 BUN (test code = 5703318337) 18 mg/dL 7-23 GLUCOSE (test code = 5330450732) 144 mg/dL 70-110 H CREATININE (test code = 0.77 mg/dL 0.50-1.04 6498378173) TOTAL BILI (test code = 0.4 mg/dL 0.1-1.6 1037816722) CALCIUM (test code = 8097682119) 8.9 mg/dL 8.6-10.6 T PROTEIN (test code = 5144335974) 6.8 g/dL 6.3-8.2 ALBUMIN (test code = 6491467876) 3.9 g/dL 3.5-5.0 ALK PHOS (test code = 2015981245) 84 U/L 34-122 ALTv (test code = 1742-6) 13 U/L 5-35 AST(SGOT) (test code = 5927429978) 17 U/L 13-40 eGFR (test code = 2705132875) mL/min/1.73m2 LYNDSAY (test code = LYNDSAY) Lab Interpretation (test code = Abnormal 65636-8) [facility] WITH [id number] 01:56:33 Test Item Value Reference Range Interpretation [...] (test code = 55.5 fL 39.0-49.9 H 98085-0) RDW-CV (test code = 18.9 % 12.0-15.5 H 788-0) PLT (test code = See_Comment H [Automated 777-3) message] The sy stem which generated this result transmitted reference range : 166 - 358 10*3/ ?L. The reference r zoe was not used to interpret this result as normal/abnormal . MPV (test code = 8.2 fL 9.5-12.9 L 54761-8) NRBC/100 WBC (test See_Comment [Automat ed code = 4263169210) message] The system which generated this result transmitted reference range : 0.0 - 10.0 /100 WBCs. The refer ence range was not u sed to interpret th is result as normal/abnormal . NRBC x10^3 (test code <0.01 See_Comment [Auto mated = 1577707595) message] The s ystem which generated this result transmitted reference range : 10*3/?L. The reference range was not used to interpret this result as normal/abnormal . GRAN MAT (NEUT) % 61.7 % (test code = 770-8) IMM GRAN % (test code 0.80 % = 4571567918) LYMPH % (test code = 28.5 % 736-9) MONO % (test code = 6.3 % 5905-5) EOS % (test code = 1.8 % 713-8) BASO % (test code = 0.9 % 706-2) GRAN MAT x10^3(ANC) 7.31 10*3/uL 1.88-7.09 H (test code = 9870970088) IMM GRAN x10^3 (test 0.09 10*3/uL 0.00-0.06 H code = 5925750161) LYMPH x10^3 (test code 3.38 10*3/uL 1.32-3.29 H = 731-0) MONO x10^3 (test code 0.75 10*3/uL 0.33-0.92 = 742-7) EOS x10^3 (test code = 0.21 10*3/uL 0.03-0.39 711-2) BASO x10^3 (test code 0.11 10*3/uL 0.01-0.07 H = 704-7) Lab Interpretation Abnormal (test code = 72972-5) [facility] WITH [id number] 01:56:33 Test Item Value Reference Range Interpretation [...] (test code = 55.5 fL 39.0-49.9 H 81185-2) RDW-CV (test code = 18.9 % 12.0-15.5 H 788-0) PLT (test code = See_Comment H [Automated 777-3) message] The sy stem which generated this result transmitted reference range : 166 - 358 10*3/ ?L. The reference r zoe was not used to interpret this result as normal/abnormal . MPV (test code = 8.2 fL 9.5-12.9 L 10420-7) NRBC/100 WBC (test See_Comment [Automat ed code = 7879742903) message] The system which generated this result transmitted reference range : 0.0 - 10.0 /100 WBCs. The refer ence range was not u sed to interpret th is result as normal/abnormal . NRBC x10^3 (test code <0.01 See_Comment [Auto mated = 7851042853) message] The s ystem which generated this result transmitted reference range : 10*3/?L. The reference range was not used to interpret this result as normal/abnormal . GRAN MAT (NEUT) % 61.7 % (test code = 770-8) IMM GRAN % (test code 0.80 % = 5909360854) LYMPH % (test code = 28.5 % 736-9) MONO % (test code = 6.3 % 5905-5) EOS % (test code = 1.8 % 713-8) BASO % (test code = 0.9 % 706-2) GRAN MAT x10^3(ANC) 7.31 10*3/uL 1.88-7.09 H (test code = 9794912673) IMM GRAN x10^3 (test 0.09 10*3/uL 0.00-0.06 H code = 6653020842) LYMPH x10^3 (test code 3.38 10*3/uL 1.32-3.29 H = 731-0) MONO x10^3 (test code 0.75 10*3/uL 0.33-0.92 = 742-7) EOS x10^3 (test code = 0.21 10*3/uL 0.03-0.39 711-2) BASO x10^3 (test code 0.11 10*3/uL 0.01-0.07 H = 704-7) Lab Interpretation Abnormal (test code = 42602-6) [facility] (ID NOW RAPID TESTING)2021-03-17 01:38:12 Test Item Value Reference Range Interpretation Comments SARS-CoV-2 Rapid ID NOW Not Detected Not Detected (test code = 95333-7) LYNDSAY (test code = LYNDSAY) ID NOW COVID-19 Assay is an isothermal nucleic acid amplification test intended for the qualitative detection of nucleic acid from SARS-CoV-2 viral RNA in nasopharyngeal (GRAPH[employer]K [employer]SEM[employer]ER) specimens. It is used under Emergency Use [...] indicated. Lab Interpretation Normal (test code = 04195-1) [facility] (ID NOW RAPID TESTING)2021-03-17 01:38:12 Test Item Value Reference Range Interpretation Comments SARS-CoV-2 Rapid ID NOW (test Not Detected Not Detected code = 70169-5) LYNDSAY (test code = LYNDSAY) Lab Interpretation (test code = Normal 68902-6) [facility] (ID NOW RAPID TESTING)2021-02-19 17:42:45 Test Item Value Reference Range Interpretation Comments SARS-CoV-2 Rapid ID NOW Not Detected Not Detected (test code = 79267-3) LYNDSAY (test code = LYNDSAY) ID NOW COVID-19 Assay is an isothermal nucleic acid amplification test intended for the qualitative detection of nucleic acid from SARS-CoV-2 viral RNA in nasopharyngeal (GRAPHITE DISK ASSEMBLER) specimens. It is used under Emergency Use [...] indicated. Lab Interpretation Normal (test code = 74423-8) [facility] ABDOMEN PELVIS W [id number] 17:24:55Thickening of the gastric antrum and duodenal [...] nodularity of the left adrenal gland.RL: [id number] [facility]lineUrinalysis2021-08-03 17:03:40 Test Item Value Reference Range Interpretation Comments APPEARANCE (test code = Hazy Clear A 1090167141) COLOR (test code = Mabel Yellow A 5408200358) PH (test code = 4.8-8.0 3895379822) SP GRAVITY (test code = 1.003-1.030 H 5061457918) GLU U QUAL (test code = Normal Normal 9241492267) BLOOD (test code = Negative Negative 5599709967) KETONES (test code = 5 mg/dL Negative A 1832372205) PROTEIN (test code = 30 mg/dL Negative A 2887-8) UROBILIN (test code = 4.0 mg/dL Normal A 8425644234) BILIRUBIN (test code = 4 mg/dL Negative A 9609539242) NITRITE (test code = Negative Negative 0071700065) LEUK GRUPO (test code = Negative Negative 8858585048) RBC/HPF (test code = See_Comment H [Autom ated message] 4337292093) The system [employer] generated this result transmit sherice reference range : 0 - 3 HPF. The refe rence range was not u sed to interpret th is result as normal/abnormal . WBC/HPF (test code = See_Comment H [Autom ated message] 2147687198) The system [employer] generated this result transmit sherice reference range : 0 - 5 HPF. The refe rence range was not u sed to interpret th is result as normal/abnormal . BACTERIA (test code = Few Negative A 3984340539) MUCOUS (test code = Moderate Negative LPF A 1129588291) SQ EPITH (test code = HPF 5408286602) CA OXALATE (test code = See_Comment H [Au tomated message] 9288681948) The system [employer] generated this result transmit sherice reference range : <=1 HPF. The refere nce range was not u sed to interpret th is result as normal/abnormal . Ictotest (test code = Negative 2458513442) Lab Interpretation (test Abnormal code = 26316-5) [facility]line[facility] Metabolic [id number] 16:34:55 Test Item Value Reference Range Interpretation Comments NA (test code = 139 mmol/L 135-145 0246793528) K (test code = 4.3 mmol/L 3.5-5.0 4971429055) CL (test code = 105 mmol/L 98-108 2294882338) CO2 TOTAL (test code 26 mmol/L 23-31 = 6743188872) AGAP (test code = 2-16 9619658753) BUN (test code = 11 mg/dL 7-23 0844920456) GLUCOSE (test code = 95 mg/dL 70-110 3218571974) CREATININE (test code 0.70 mg/dL 0.50-1.04 = 6573125540) TOTAL BILI (test code 0.6 mg/dL 0.1-1.1 = 9839925715) CALCIUM (test code = 8.9 mg/dL 8.6-10.6 9343003639) T PROTEIN (test code 7.7 g/dL 6.3-8.2 = 4320839514) ALBUMIN (test code = 4.1 g/dL 3.5-5.0 9512947993) ALK PHOS (test code = 79 U/L 34-122 2169163698) ALTv (test code = 10 U/L 5-35 1742-6) AST(SGOT) (test code 22 U/L 13-40 = 2908969030) eGFR (test code = mL/min/1.73m2 2976512812) LYNDSAY (test code = LYNDSAY) Association of [...] or urine or abnormalities in imaging tests). [facility] ShorelineLipase, [id number] 16:34:14 Test Item Value Reference Range Interpretation Comments LIPASE (test code = 8484654400) 45 U/L 0-220 Lab Interpretation (test code = Normal 56954-2) [facility] with [id number] 16:21:12 Test Item Value Reference Range Interpretation Comments WBC (test code = See_Comment [Automated 6147-2) message] The sy stem which generated this result transmitted reference range : 4.30 - 11.10 10*3/?L. The reference range was not used to interpret this result as normal/abnormal . RBC (test code = See_Comment [Automated 384-8) message] The sy stem which generated this [...] (test code = 54.4 fL 39.0-49.9 H 30550-8) RDW-CV (test code = 18.3 % 12.0-15.5 H 788-0) PLT (test code = See_Comment H [Automated 777-3) message] The sy stem which generated this result transmitted reference range : 166 - 358 10*3/ ?L. The reference r zoe was not used to interpret this result as normal/abnormal . MPV (test code = 8.5 fL 9.5-12.9 L 30760-3) NRBC/100 WBC (test See_Comment [Automat ed code = 8014399119) message] The system which generated this result transmitted reference range : 0.0 - 10.0 /100 WBCs. The refer ence range was not u sed to interpret th is result as normal/abnormal . NRBC x10^3 (test code <0.01 See_Comment [Auto mated = 3955322465) message] The s ystem which generated this result transmitted reference range : 10*3/?L. The reference range was not used to interpret this result as normal/abnormal . GRAN MAT (NEUT) % 78.3 % (test code = 770-8) IMM GRAN % (test code 0.40 % = 7739744243) LYMPH % (test code = 15.4 % 736-9) MONO % (test code = 4.8 % 5905-5) EOS % (test code = 0.1 % 713-8) BASO % (test code = 1.0 % 706-2) GRAN MAT x10^3(ANC) 7.15 10*3/uL 1.88-7.09 H (test code = 3427059615) IMM GRAN x10^3 (test 0.04 10*3/uL 0.00-0.06 code = 7837117832) LYMPH x10^3 (test code 1.41 10*3/uL 1.32-3.29 = 731-0) MONO x10^3 (test code 0.44 10*3/uL 0.33-0.92 = 742-7) EOS x10^3 (test code = <0.03 0.03-0.39 L 711-2) BASO x10^3 (test code 0.09 10*3/uL 0.01-0.07 H = 704-7) Lab Interpretation Abnormal (test code = 60776-3) [facility]
[2023-02-04] MEDS ORDERED: MORPHINE 4 MG/ML SYR ONE ×2 (12:33→13:54)
[2023-02-04] MEDS ORDERED: NA CHLORIDE 0.9% 1,000 ML ONE (12:34)
[2023-02-04] MEDS ORDERED: ONDANSETRON 4 MG/2 ML VIAL ONE (12:34)
[2023-02-04 12:37] LABS: Absolute Lymphocytes (CBC) 2.5 K/uL (0.7-4.9); Hematocrit 39.2 % (36.0-45.0); Lymphocytes % 27.5 % (15.3-44.8); MCV 82.8 fL (80-100); MPV 6.2 fL (7.6-11.3); RBC Red Blood Cell Count 4.74 M/uL (3.86-4.86)
[2023-02-04 12:43] LABS: Protime INR 0.96
[2023-02-04 12:53] LABS: Albumin 3.3 g/dL (3.4-5.0); Bilirubin Total 0.2 mg/dL (0.2-1.0); Potassium 3.9 mEq/L (3.5-5.1); Protein, Total 7.1 g/dL (6.4-8.2)
--- NOTE | 2023-02-04 13:24 | RAD REPORT ---
EXAM DESCRIPTION: CT - Abdomen Pelvis W Contrast - 02/04/2023 1:04 pm CLINICAL HISTORY: Abdominal pain COMPARISON: December 2022 and 2020 TECHNIQUE: Computed axial tomography of the abdomen pelvis was obtained. 100 cc Isovue-300 was admin istered intravenously. Oral contrast was not requested which limits evaluation of bowel and appendix All CT scans are performed using dose optimization technique as appropriate and may include automated exposure control or mA/KV adjustment according to patient size. FINDINGS: Liver, spleen, pancreas, right adrenal gland and kidneys are unremarkable. Right adrenal mass 2.8 centimeters Hounsfield unit 19 is unchanged likely an adenoma. No follow-up re commended Cholecystectomy Diverticula stem from the colon. The sigmoid diverticulitis has almost completely resolved. IMPRESSION: Sigmoid diverticulitis has almost completely resolved
[2023-02-04] MEDS ORDERED: METRONIDAZOLE 500mg IVPB 500 MG/100 ML BAG IV ONE (13:54)
--- NOTE | 2023-02-04 13:55 | EDPHYS ---
Physician Documentation [facility] Name: Heather Coon Age: 53 yrs Sex: Female : 1970 Arrival Date: 02/04/2023 Time: 11:29 Bed 18 Private MD: ED Physician Jones Parham HPI: 02/04 11:44 This 53 yrs old Female presents to ER via EMS with complaints of Abdominal Pain. rn 11:44 The patient presents with abdominal pain in the left lower quadrant. Onset: The rn symptoms/episode began/occurred at an unknown time. The symptoms do not radiate. Associated signs and symptoms: Pertinent positives: nausea, Pertinent negatives: blood in stools, chest pain, fever. The symptoms are described as sharp, stabbing. Modifying factors: The symptoms are alleviated by nothing, the symptoms are aggravated by movement, touching the area. Severity of pain: At its worst the pain was moderate in the emergency department the pain is unchanged. The patient has experienced similar episodes in the past. Pt reports admitted 3 weeks ago for 5 days here, had perforated diverticulitis, no surgery performed, sent home but did not fill abx. Pain worsened over last few days, hurts to move. + nausea and vomiting.. 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 - Family history:: not pertinent. - Social history:: Smoking status: Patient reports the use of cigarette tobacco products, smokes one-half pack cigarettes per day. - Hospitalizations: : The patient was recently seen at [facility]. ROS: 11:44 Constitutional: Negative for fever, chills, and weight loss, Eyes: Negative for injury, rn pain, redness, and discharge, Neck: Negative for injury, pain, and swelling, Cardiovascular: Negative for chest pain, palpitations, and edema, Respiratory: Negative for shortness of breath, cough, wheezing, and pleuritic chest pain, Abdomen/GI: + abd pain and nausea/vomiting MS/Extremity: Negative for injury and deformity, Skin: Negative for injury, rash, and discoloration, Neuro: Negative for headache, weakness, numbness, tingling, and seizure. Exam: 11:44 Constitutional: This is a well developed, well nourished patient who is awake, alert, rn appears uncomfortable Head/Face: Normocephalic, atraumatic. ENT: dry MM Cardiovascular: Tachycardic, regular Respiratory: No increased work of breathing, no retractions or nasal flaring. Abdomen/GI: soft, + tender suprapubic and LLQ, with guarding. Skin: Warm, dry MS/ Extremity: Pulses equal, no cyanosis. Neuro: Awake and alert, GCS 15 Vital Signs: 11:39 BP 152 / 94; Pulse 113; Resp 16; Temp 99.2(O); Pulse Ox 99% on R/A; db 11:42 Weight 90.72 kg; Height 5 ft. 2 in. ; db 12:10 BP 137 / 85; Pulse 105; Resp 16; Pulse Ox 99% on R/A; db 13:06 BP 149 / 73; Pulse 98; Resp 16; Pulse Ox 98% on R/A; db 14:00 BP 122 / 87; Pulse 99; Resp 16; Pulse Ox 96% on R/A; db 15:30 BP 120 / 85; Pulse 88; Resp 16; Pulse Ox 100% on R/A; db 11:42 Body Mass Index 36.58 (90.72 kg, 157.48 cm) db MDM: 11:35 Patient medically screened. rn 13:52 Differential diagnosis: bowel obstruction, non-specific abd pain, diverticulitis, rn perforation. 13:53 Data reviewed: vital signs, nurses notes, lab test result(s), radiologic studies, CT rn scan, and as a result, I will discharge patient. Counseling: I had a detailed discussion with the patient and/or guardian regarding: the historical points, exam findings, and any diagnostic results supporting the discharge/admit diagnosis, lab results, radiology results, the need for outpatient follow up, to return to the emergency department if symptoms worsen or persist or if there are any questions or concerns that arise at home. Response to treatment: the patient's symptoms have mildly improved after treatment, and as a result, I will discharge patient. Special discussion: Based on the patient's Hx, exam, and Dx evaluation, there is no indication for emergent surgery or inpatient Tx. It is understood by the patient/guardian that if the Sx's persist or worsen they need to return immediately for re-evaluation. I discussed with the patient/guardian in detail that at this point there is no indication for admission to the hospital. It is understood, however, that if the symptoms persist or worsen the patient needs to return immediately for re-evaluation. ED course: CT shows almost complete resolution of diverticulitis but still some residual infection, will give abx and pain meds and dc home, lactate normal, cbc normal, given strict return precautions, patient states can afford meds now and will take them.. 02/04 11:42 Order name: CBC with Diff; Complete Time: 13:20 rn 02/04 11:42 Order name: CMP; Complete Time: : rn 02/04 11:42 Order name: Lipase; Complete Time: : rn 02/04 11:42 Order name: Blood Culture Adult (2) rn 02/04 11:42 Order name: Lactate w/ 2H reflex if indic.; Complete Time: 13: rn 02/04 11:42 Order name: Protime (+inr); Complete Time: 13: rn 02/04 11:42 Order name: Ptt, Activated; Complete Time: 13: rn 02/04 12:39 Order name: Glucose, Ancillary Testing; Complete Time: 13:20 EDND 02/04 11:42 Order name: CT Abd/Pelvis - IV Contrast Only; Complete Time: 13:35 rn 02/04 11:42 Order name: EKG; Complete Time: 11:43 rn 02/04 11:42 Order name: IV Saline Lock; Complete Time: 12:23 rn 02/04 11:42 Order name: Labs collected and sent; Complete Time: 12: rn 02/04 11:42 Order name: Accucheck; Complete Time: 12:32 rn 02/04 11:42 Order name: Cardiac monitoring; Complete Time: 11:43 rn 02/04 11:42 Order name: EKG - Nurse/Tech; Complete Time: 11:43 rn 02/04 11:42 Order name: O2 Per Protocol; Complete Time: 11:43 rn 02/04 11:42 Order name: O2 Sat Monitoring; Complete Time: 11:43 rn 02/04 11:42 Order name: Vital Signs; Complete Time: 11:43 rn Administered Medications: 12:25 Drug: NS 0.9% IV 1000 ml Route: IV; Rate: 1 bolus; Site: left wrist; db 13:30 Follow up: Response: No adverse reaction; IV Status: Completed infusion; IV Intake: db 1000ml 12:28 Drug: Ondansetron IVP 4 mg Route: IVP; Site: left wrist; db 15:46 Follow up: Response: No adverse reaction db 12:28 Drug: morphine IVP or IV 4 mg Route: IVP; Infused Over: 4 mins; Site: left wrist; db 15:47 Follow up: Response: No adverse reaction db 13:52 Drug: morphine IVP or IV 4 mg Route: IVP; Infused Over: 4 mins; Site: right forearm; cm10 14:32 Follow up: Response: No adverse reaction db 13:52 Drug: metroNIDAZOLE IVPB 500 mg Volume: 100 ml; Route: IVPB; Rate: 200 ml/hr; Infused cm10 Over: 30 mins; Site: left forearm; 14:25 Follow up: Response: No adverse reaction; IV Status: Completed infusion; IV Intake: db 100ml 14:28 Drug: Ciprofloxacin IVPB 400 mg Volume: 200 ml; Route: IVPB; Infused Over: 60 mins; db Site: right forearm; 14:30 Follow up: Response: No adverse reaction; IV Status: Completed infusion; IV Intake: db 100ml Disposition Summary: 02/04/23 13:54 Discharge Ordered Location: Home rn Problem: an ongoing problem rn Symptoms: have improved rn Condition: Stable rn Diagnosis - Diverticulitis of large intestine without perforation or abscess without bleeding rn Followup: rn - With: Private Physician - When: As needed - Reason: Recheck today's complaints, Re-evaluation by your physician Discharge Instructions: - Discharge Summary Sheet rn - Diverticulitis rn Forms: - Medication Reconciliation Form rn - Thank You Letter rn - Antibiotic pattern repair person - Prescription Opioid Use rn - Patient Portal Instructions rn Prescriptions: - ondansetron 4 mg Oral Tablet,disintegrating - take 1 tablet by ORAL route every 8 hours As needed; 10 tablet; Refills: 0, rn Product Selection Permitted - Flagyl 500 mg Oral Tablet - take 1 tablet by ORAL route every 8 hours for 10 days; 30 tablet; Refills: 0, rn Product Selection Permitted - Cipro 500 mg Oral Tablet - take 1 tablet by ORAL route every 12 hours for 10 days; 20 tablet; Refills: 0, rn Product Selection Permitted - Tramadol 50 mg Oral Tablet - take 1 tablet by ORAL route every 8 hours as needed; 12 tablet; Refills: 0, rn Product Selection Permitted Signatures: Dispatcher [employer] Jones Larose MD MD rn Benton, Danielle RN Maile Nails RN RN cm10
--- NOTE | 2023-02-04 13:55 | ER ---
Nurse's Notes [facility] Name: Heather Coon Age: 53 yrs Sex: Female : 1970 Arrival Date: 02/04/2023 Time: 11:29 Bed 18 Private MD: Diagnosis: Diverticulitis of large intestine without perforation or abscess without bleeding Presentation: 02/04 11:31 Chief complaint: EMS states: Woke up this AM 0500 with Nausea and abdominal pain. non db compliant with medications did not take antibiotics. Coronavirus screen: Client denies travel out of the [place] in the last 14 days. At this time, the client does not indicate any symptoms associated with coronavirus-19. Ebola Screen: Patient negative for fever greater than or equal to 101.5 degrees Fahrenheit, and additional compatible Ebola Virus Disease symptoms Patient denies exposure to infectious person. Patient denies travel to an Ebola-affected area in the 21 days before illness onset. No symptoms or risks identified at this time. Initial Sepsis Screen: Does the patient meet any 2 criteria? No. Patient's initial sepsis screen is negative. Does the patient have a suspected source of infection? No. Patient's initial sepsis screen is negative. Risk Assessment: Do you want to hurt yourself or someone else? Patient reports no desire to harm self or others. Onset of symptoms was February 04, 2023. Care prior to arrival: Medication(s) given: zofran 4 mg. 11:31 Method Of Arrival: EMS: [facility] db 11:31 Acuity: ANDER 3 db Triage Assessment: 12:20 Neuro: Level of Consciousness is awake, alert, obeys commands, Oriented to person, db place, time, situation. 12:34 General: Appears in no apparent distress. comfortable, Behavior is calm, cooperative. db Pain: Complains of pain in abdomen. 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 - Family history:: not pertinent. - Social history:: Smoking status: Patient reports the use of cigarette tobacco products, smokes one-half pack cigarettes per day. - Hospitalizations: : The patient was recently seen at [facility]. Screenin:36 [facility] ED Fall Risk Assessment (Adult) History of falling in the last 3 months, db including since admission No falls in past 3 months (0 pts) Confusion or Disorientation No (0 pts) Intoxicated or Sedated No (0 pts) Impaired Gait No (0 pts) Mobility Assist Device Used No (0 pt) Altered Elimination No (0 pt) Score/Fall Risk Level 0 - 2 = Low Risk Oriented to surroundings, Maintained a safe environment. Abuse screen: Denies threats or abuse. Denies injuries from another. Nutritional screening: No deficits noted. Tuberculosis screening: No symptoms or risk factors identified. Assessment: 12:35 Reassessment: Patient appears in no apparent distress at this time. Patient and/or db family updated on plan of care and expected duration. Pain level reassessed. Patient is alert, oriented x 3, equal unlabored respirations, skin warm/dry/pink. General: Appears in no apparent distress. comfortable, Behavior is calm, cooperative. 13:00 Reassessment: Patient appears in no apparent distress at this time. Patient and/or db family updated on plan of care and expected duration. Pain level reassessed. Patient is alert, oriented x 3, equal unlabored respirations, skin warm/dry/pink. 14:00 Reassessment: Patient appears in no apparent distress at this time. Patient and/or db family updated on plan of care and expected duration. Pain level reassessed. Patient is alert, oriented x 3, equal unlabored respirations, skin warm/dry/pink. Patient states feeling better. 14:36 Reassessment: patient dc pending antibiotic to finish. db Vital Signs: 11:39 BP 152 / 94; Pulse 113; Resp 16; Temp 99.2(O); Pulse Ox 99% on R/A; db 11:42 Weight 90.72 kg; Height 5 ft. 2 in. ; db 12:10 BP 137 / 85; Pulse 105; Resp 16; Pulse Ox 99% on R/A; db 13:06 BP 149 / 73; Pulse 98; Resp 16; Pulse Ox 98% on R/A; db 14:00 BP 122 / 87; Pulse 99; Resp 16; Pulse Ox 96% on R/A; db 15:30 BP 120 / 85; Pulse 88; Resp 16; Pulse Ox 100% on R/A; db 11:42 Body Mass Index 36.58 (90.72 kg, 157.48 cm) db ED Course: 11:30 Patient arrived in ED. db 11:33 Triage completed. db 11:33 Arm band placed on Patient placed in an exam room. db 11:34 Jones Parham MD is Attending Physician. rn 11:35 Arletet Lyles RN is Primary Nurse. db 12:20 Inserted saline lock: 22 gauge in left wrist, using aseptic technique. ,using aseptic db technique. by José Miguel Blood collected. 12:37 Patient has correct armband on for positive identification. Bed in low position. Call db light in reach. Side rails up X 1. 13:06 CT Abd/Pelvis - IV Contrast Only In Process Unspecified. EDMS 15:43 Provided Education on: DISCHARGED. db 15:43 No provider procedures requiring assistance completed. IV discontinued, intact, db bleeding controlled, No redness/swelling at site. Administered Medications: 12:25 Drug: NS 0.9% IV 1000 ml Route: IV; Rate: 1 bolus; Site: left wrist; db 13:30 Follow up: Response: No adverse reaction; IV Status: Completed infusion; IV Intake: db 1000ml 12:28 Drug: Ondansetron IVP 4 mg Route: IVP; Site: left wrist; db 15:46 Follow up: Response: No adverse reaction db 12:28 Drug: morphine IVP or IV 4 mg Route: IVP; Infused Over: 4 mins; Site: left wrist; db 15:47 Follow up: Response: No adverse reaction db 13:52 Drug: morphine IVP or IV 4 mg Route: IVP; Infused Over: 4 mins; Site: right forearm; cm10 14:32 Follow up: Response: No adverse reaction db 13:52 Drug: metroNIDAZOLE IVPB 500 mg Volume: 100 ml; Route: IVPB; Rate: 200 ml/hr; Infused cm10 Over: 30 mins; Site: left forearm; 14:25 Follow up: Response: No adverse reaction; IV Status: Completed infusion; IV Intake: db 100ml 14:28 Drug: Ciprofloxacin IVPB 400 mg Volume: 200 ml; Route: IVPB; Infused Over: 60 mins; db Site: right forearm; 14:30 Follow up: Response: No adverse reaction; IV Status: Completed infusion; IV Intake: db 100ml Medication: 15:43 VIS not applicable for this client. db Intake: 13:30 IV: 1000ml; Total: 1000ml. db 14:25 IV: 100ml; Total: 1100ml. db 14:30 IV: 100ml; Total: 1200ml. db Outcome: 13:54 Discharge ordered by . rn 15:43 Discharged to home via wheelchair, with family. db 15:43 Condition: stable 15:43 Discharge instructions given to patient, Instructed on discharge instructions, follow up and referral plans. Prescriptions given X 4. 15:47 Patient left the ED. db Signatures: Dispatcher [employer] EDMS Jones Parham MD MD rn Benton, Danielle RN Maile Nails RN RN cm10 Corrections: (The following items were deleted from the chart) 12:33 11:55 NS 0.9% IV 1000 ml IV at 1 bolus in left wrist db db 14:36 14:36 Reassessment: patient dc pending antibiotic db db 15:45 15:43 BP 120 / 85; Pulse 88bpm; Resp 16bpm; Pulse Ox 100% RA; db db
[2023-02-04] MEDS ORDERED: CIPROFLOXACIN 400mg IV 400 MG/200 ML BAG IV ONE (14:34)
[2023-02-04 16:05] VITALS: TEMP 99.2
[2023-02-04 16:13] VITALS: BP 120/85; O2SAT 100
--- NOTE | 2023-02-05 12:04 | EKG ---
Test Date: 2023-02-04 Test Time: 11:45:00 Behavioral Health Therapist: 0000 MEASUREMENT RESULTS: Intervals: Rate: 104 DC: 146 QRSD: 80 QT: 302 QTc: 397 Curlew: P: -8 DC: 146 QRS: -54 T: 18 INTERPRETIVE STATEMENTS: Sinus tachycardia Left axis deviation Low voltage QRS Inferior infarct, age undetermined Abnormal ECG Compared to ECG 01/14/2023 13:18:21 Left-axis deviation now present Low QRS voltage now present Myocardial infarct finding now present Atrial abnormality no longer present Electronically Signed On 02-05-23 12:02:23 CDT by Saad Leavitt
== END 2023-02-04 15:47 | disposition home or self-care (01) ==
LOC: ER 11:29
DX: K57.32 Diverticulitis of large intestine without perforation or abscess without bleeding (principal); F17.210 Nicotine dependence, cigarettes, uncomplicated; Z88.8 Allergy status to other drugs, medicaments and biological substances; Z91.018 Allergy to other foods
CPT/HCPCS: 87040 ×2; 85025; 36415; 85610; 82947; 83605; 85730; 83690; 80053; 74177; Q9967; J2405; J0744; J7030; 93005; 99284

== ENCOUNTER 2023-02-21 14:15 | Emergency (ER) | payer OTHER ==
--- OUTSIDE RECORDS SUMMARY | 2023-02-21 14:25 | XMS REPORT | Continuity of Care Document ---
:1970 Author Organization [facility] t Address [address] [facility] [place] [address] Care Team Providers Name Role Phone Aneta Silva Primary Care Physician [phone] Alfonso MULLIGAN Attending Clinician Unavailable Alfonso Lopez [...] Clinician SELINA MARTINES Attending Clinician Unavailable Sam KRAFT Sapna Freya Attending Clinician Glory Esteves MD Attending Clinician [phone] Selina Martines MD Attending Clinician Vaccine, [place] Pedi Attending Clinician Unavailable Jose Frederick MD Attending Clinician JOSE FREDERICK Attending Clinician Unavailable NICHELLE ALLISON Attending Clinician Unavailable Nichelle Bishop Attending Clinician Doctor Unassigned, [place] Attending Clinician Unavailable Miky Nava RN Attending Clinician Unavailable Fabrice Gordillo Attending Clinician Lydia Eaton Attending Clinician Unknown, Attending Attending Clinician Unavailable UNKNOWN, ATTENDING Attending Clinician Unavailable Anali Rascon Attending Clinician Yehuda Arcos MD Attending Clinician Alfonso MULLIGAN Admitting Clinician Unavailable RITCHIE WARERN Admitting Clinician Unavailable JEN YEPEZ Admitting Clinician Unavailable LORENZA HER Admitting Clinician Unavailable Lorenza Her MD Admitting Clinician BRANDYN MCFARLANE Admitting Clinician Unavailable Brandyn Mcfarlane MD Admitting Clinician GLORY ESTEVES Admitting Clinician Unavailable NICHELLE ALLISON Admitting Clinician Unavailable Payers Payer Name Policy Type Policy Number Effective Date Expiration Date S [facility] MEDICAID PENDING PENDING 2022 00:00:00 Problems Condition Condition Condition Status Onset Resolution Last Treating Co mments Source Name Details Category Date Date Treatment Clinician Date Seizure Seizure Disease Recurre [facility] 00 [facility] Cardiomyop Cardiomyop Disease Active U nivers athy athy 1-13 ity of 00:00: [place] 00 Medical Branch NSVT NSVT Disease Active [...] artery 1-12 ity of disease disease 00:00: [place] involving involving 00 Medi [place] coronary coronary artery of artery of [place] heart heart without without angina angina pectoris pectoris Snores Snores Disease Active Univers 1-12 ity of 00:00: [place] 00 Medical Branch Cigarette Cigarette Disease Active Uni vers smoker smoker 1-12 ity of 00:00: [place] 00 Medical Branch Primary Primary Disease Active Univers hypertensi hypertensi 1-12 it y of on on 00:00: [place] 00 Medical Branch Other Other Disease Active Univers hyperlipid hyperlipid 1-12 it y of emia emia 00:00: [place] 00 Medical Branch Coronary Coronary Disease Active Unive rs artery artery 1-12 ity of disease disease 00:00: [place] involving involving 00 Medi [place] coronary coronary artery of artery of [place] heart heart without without angina angina pectoris [...] pain pain 3- ity of 00:00: [place] [facility] High blood High blood Disease [...] ers CETAM INGREDI 11-17 ity of 00:00: Medical Branch Levetira Propensi Active Other - [...] Center s FLUOXETI Allergy Active Med Rash [address] [facility] [address] [facility] GREEN Allergy Active 2022-0 [facility] TEA 08-02 00:00: 00 Fluoxeti Propensi Active Unknown - 2020-0 Uni vers ne ty to See comments [...] Stop Date Source Natural mother Alcohol abuse [facility] Natural mother Cancer [facility] Natural mother Diabetes [facility] Natural mother Heart disease [facility] Natural mother Hyperlipidemia [facility] Natural mother Kidney disease [facility] Natural mother Stroke [facility] Paternal uncle Diabetes [facility] Social History Social Habit Start Date Stop Date Quantity Comments Source History SDOH Social Unive rsity of [facility] Med ical Together Branch History SDOH Social Unive rsity of [facility] History SDOH Social Unive rsity of [facility] Membership Branch History SDOH Social Unive rsity of [facility] Medical Meetings Branch History of tobacco Cigarette Smoker [facility] use [facility] History SDOH [facility] Alcohol Frequency Medical Center History SDOH [facility] Alcohol Std Drinks Medica Center History SDOH [facility] Alcohol Binge Medical [address] Exposure to 2022-12-01 2022-12-11 Not sure University of SARS-CoV-2 (event) 00:00:00 08:54:00 [facility] Cigarettes smoked 2022-08-02 2022-08-02 [facility] [...] Unive rsity of Connections Phone 00:00:00 00:00:00 [facility] edical Branch History SDOH Social 2022-08-01 2022-08-01 5 Unive rsity of Connections Living 00:00:00 00:00:00 [place] [facility] History SDOH 2022-08-01 2022-08-01 0 University o f Physical Activity 00:00:00 00:00:00 [facility] edical DPW Branch History SDOH 2022-08-01 2022-08-01 0 University o f Physical Activity 00:00:00 00:00:00 [facility] edical MPS Branch History SDOH 2022-08-01 2022-08-01 3 University o f Financial 00:00:00 00:00:00 [place] [facility] History SDOH Food 2022-08-01 2022-08-01 1 Univers ity of Worry 00:00:00 00:00:00 [place] [facility] History SDOH Food 2022-08-01 2022-08-01 1 Univers ity of Scarcity 00:00:00 00:00:00 [place] [facility] History SDOH 2022-08-01 2022-08-01 2 University o f Transport Med 00:00:00 00:00:00 [place] Medic al Branch History SDDE 2022-08-01 2022-08-01 2 University o f Transport Non-Med 00:00:00 00:00:00 [facility] edical Branch Cigarette 2022-07-31 2022-07-31 University of pack-years 00:00:00 00:00:00 [facility] Education 2022-07-31 2022-07-31 14 University of 00:00:00 00:00:00 [facility] Sex Ass[birth year] At [birth year] [facility] 00:00:00 00:00:00 [facility] Smoking Status Start Date Stop Date Source Smokes tobacco daily 2022-08-02 00:00:00 [facility] Medications Ordered Filled Start Stop Current Ordering Indication Dosage Frequency Signature Comments Components Source Medication Medication Date Date Medication? Clinician (SIG) Name Name lacosamide 2022- No 200mg 200 mg, IV Univers (VIMPAT) 5-25 05-25 Piggyback, ity of 200 mg in 19:45: 19:57 ONCE, 1 [place] NaCl 0.9% 00 :00 dose, On Medica l (NS) 50 mL [facility] Branch piggyback 12/11/22 at 1445, Administer over 30 Minutes, 50 mL
F aculty member approving Restricted medication : Alfonso MULLIGAN LORELEI ketorolac 2022- No 15mg 15 mg, Unive rs (TORADOL) 12-11-25 Slow IV ity of injection 18:15: 17:25 Push, [place] 15 mg 00 :00 ONCE, 1 Medical dose, On Branch Arpita 12/11/22 at 1315, MICHAEL iopamidol 2022- No [id number] 80mL 80 mL, U nivers (ISOVUE 12-11 Intravenou ity o f 370-500 mL) 16:30: 16:27 s, ONCE, 1 [place] injection 00 :00 dose, On Medica l 80 mL [facility] Branch 12/11/22 at 1130, Routine nitroglycer 2022- No .5[in_u 0.5 Inch, Univers in (NITROL) 12-11 s] Transderma i ty of 2 % 15:30: 14:31 l (Apply [place] ointment 00 :00 To Skin), Medica l 0.5 Inch ONCE, 1 Branch dose, On [facility] 12/11/22 at 1030, MICHAEL aspirin 2022- No 324mg 324 mg, Unive rs chewable 12-11 Oral, ity of tablet 324 15:30: 14:30 ONCE, 1 [place] as mg 00 :00 dose, On Medical [facility] Branch 12/11/22 at 1030, Routine ondansetron 2022- No 4mg 4 mg, Slow Univers (ZOFRAN 12-1125 IV Push, ity of (PF)) 15:30: 14:29 ONCE, 1 [place] injection 4 00 :00 dose, On Medi kwame mg [facility] Branch 12/11/22 at 1030, MICHAEL LORazepam 2022- No 1mg 1 mg, Slow U nivers (ATIVAN) 12-11-25 IV Push, ity of injection 1 15:00: 14:57 ONCE, 1 [place] mg 00 :00 dose, On Medical [place] Branch 12/11/22 at 1000, STAT Lacosamide 2022-0 Yes [id number] 100mg Take 1 Univers (VIMPAT) 5-25 tablet by ity of 100 mg 00:00: mouth in [place] tablet 00 the Medical morning Branch and 1 tablet in the evening. acetaminoph 2022-2022- No 1{tbl} 1 tablet, Univers en-codeine 11-18 Oral, ity of (TYLENOL 05:30: 05:30 ONCE, 1 [place] #3) 300-30 00 :00 dose, On Medic al mg tablet 1 Thu11/18/22 Br anch tablet at 0030, MICHAEL methocarbam 2022- No 1000mg 1,000 mg, Univers oL 11-18 Oral, ity of (ROBAXIN) 05:30: 05:30 ONCE, 1 [place] tablet 00 :00 dose, On Medical 1,000 mg [facility] 11/18/22 Branc h at 0030, MICHAEL ondansetron 2022- No 4mg 4 mg, Slow Univers (ZOFRAN 11-18 IV Push, ity of (PF)) 04:45: 03:38 ONCE, 1 [place] injection 4 00 :00 dose, On Medi kwame mg [facility] 11/17/22 Branch at 2345, MICHAEL morpHINE (4 2022- No 4mg 4 mg, Slow Univers mg/mL) 11-18 IV Push, ity of injection 4 03:45: 03:38 ONCE, 1 [place] mg 00 :00 dose, On Medical [facility] 11/17/22 Branch at 2245, Routine methocarbam 2022- No 1000mg 1,000 mg, Univers oL 11-18- Intravenou ity of (ROBAXIN) 00:30: 23:47 s, ONCE, 1 [place] injection 00 :00 dose, On Medica l 1,000 mg [facility] 11/17/22 Branc h at 1930, MICHAEL methocarbam 2022-0 Yes [id number] 1000mg Take 2 Univers oL 500 mg -02 tablets by ity of tablet 00:00: mouth 4 [place] 00 (four) Medical times Branch daily as needed for Pain (scale 7-10). methocarbam Yes [id number] 1000mg Take 2 Univers oL 500 mg -02 tablets by ity of tablet 00:00: mouth 4 [place] 00 (four) Medical times Branch daily as needed for Pain (scale 7-10). acetaminoph 2022- No [id number] 1{tbl} Take 1 U nivers [...] Yes 10mg 10 mg, Unive rs (PRINIVIL,Z 14 Oral, ity of ESTRIL) 15:00: DAILY, [place] [...] by mouth ity of 23:49: daily. [address] omega-3 0 Yes 1g Take 1 g Univer s fatty 1-13 by mouth ity of acids-vitam 23:49: daily. [place] in E (FISH 34 Medical OIL) 1,000 Branch mg capsule loratadine 0 Yes Take by Univ ers (CLARITIN 1-13 mouth ity of LIQUI-GEL) 23:49: daily. [place] 10 mg 34 Medical capsule Branch ondansetron 0 Yes 4mg Take 4 mg U nivers 4 mg tablet 1-13 by mouth ity of 23:49: every 8 [place] [id number] (eight) Medical hours as Branch needed. pantoprazol 0 Yes 40mg Take 40 mg Univers e 40 mg EC 1-13 by mouth ity o f tablet 23:49: daily. [address] MULTIVITAMI 0 Yes 1{tbl} Take 1 Tab Univers N ORAL 1-13 by mouth ity of 23:49: daily. [address] omega-3 2022-0 Yes 1g Take 1 g Univer s fatty 1-13 by mouth ity of acids-vitam 23:49: daily. [place] in E (FISH 34 Medical OIL) 1,000 Branch mg capsule loratadine 0 Yes Take by Univ ers (CLARITIN 1-13 mouth ity of LIQUI-GEL) 23:49: daily. [place] 10 mg 34 Medical capsule Branch ondansetron 2022-0 Yes 4mg Take 4 mg U nivers 4 mg tablet 1-13 by mouth ity of 23:49: every 8 [place] [id number] (eight) Medical hours as Branch needed. pantoprazol 2022-0 Yes 40mg Take 40 mg Univers e 40 mg EC 1-13 by mouth ity o f tablet 23:49: daily. [address] MULTIVITAMI Yes 1{tbl} Take 1 Tab Univers N ORAL 1-13 by mouth ity of 23:49: daily. [address] omega-3 2022-0 Yes 1g Take 1 g Univer s fatty 1-13 by mouth ity of acids-vitam 23:49: daily. [place] in E (FISH 34 Medical OIL) 1,000 Branch mg capsule loratadine 2022-0 Yes Take by Univ ers (CLARITIN 1-13 mouth ity of LIQUI-GEL) 23:49: daily. [place] 10 mg Medical capsule Branch ondansetron 2022-0 Yes 4mg Take 4 mg U nivers 4 mg tablet 1-13 by mouth ity of 23:49: every 8 [place] [address] (eight) Medical hours as Branch needed. pantoprazol 2022-0 Yes 40mg Take 40 mg Univers e 40 mg EC 1-13 by mouth ity o f tablet 23:49: daily. [address] MULTIVITAMI Yes 1{tbl} Take 1 Tab Univers N ORAL 1-13 by mouth ity of 23:49: daily. [address] omega-3 2022-0 Yes 1g Take 1 g Univer s fatty 1-13 by mouth ity of acids-vitam 23:49: daily. [place] in [place] (FISH 34 Medical OIL) 1,000 Branch mg capsule loratadine 2022-0 Yes Take by Univ ers (CLARITIN 1-13 mouth ity of LIQUI-GEL) 23:49: daily. [place] 10 mg 34 Medical capsule Branch ondansetron 2022-0 Yes 4mg Take 4 mg U nivers 4 mg tablet 1-13 by mouth ity of 23:49: every 8 [place] [address] (eight) Medical hours as Branch needed. pantoprazol 3-0 Yes 40mg Take 40 mg Univers e 40 mg EC 1-13 by mouth ity o f tablet 23:49: daily. [address] MULTIVITAMI Yes 1{tbl} Take 1 Tab Univers N ORAL 1-13 by mouth ity of 23:49: daily. [address] Branch omega-3 0 Yes 1g Take 1 g Univer s fatty -13 by mouth ity of acids-vitam 23:49: daily. [place] in [place] (FISH 34 Medical OIL) 1,000 Branch mg capsule loratadine Yes Take by Univ ers (CLARITIN - mouth ity of LIQUI-GEL) 23:49: daily. [place] 10 mg 34 Medical capsule Branch ondansetron Yes 4mg Take 4 mg U nivers 4 mg tablet 13 by mouth ity of 23:49: every 8 [place] [address] (eight) Medical hours as Branch needed. pantoprazol Yes 40mg Take 40 mg Univers e 40 mg EC 08-01 by mouth ity o f tablet 23:49: daily. [address] benzonatate Yes 100mg 100 mg, Un lois (TESSALON 1-13 Oral, Q8H, ity of PERLES) 20:00: First dose [place] capsule 100 00 on Fri Medica l mg 08/01/22 at Branch 1400, Until Discontinu ed, Routine ipratropium 0 Yes 3mL 3 mL, Unive rs -albuteroL 08-01 Inhalation ity of (DUONEB) 18:00: , QID, [place] 0.5 mg-3 00 First dose Medic al mg(2.5 mg on Fri Branch base)/3 mL 08/01/22 at nebulizer 1200, solution 3 Until mL Discontinu ed, Routine ipratropium 2022-0 Yes 3mL 3 mL, Unive rs -albuteroL 13 Inhalation ity of (DUONEB) 17:07: , QIDPRN, [place] 0.5 mg-3 07 Starting Medical mg(2.5 mg on Fri Branch base)/3 mL 08/01/22 at nebulizer 1107, solution 3 Until mL Discontinu ed, MICHAEL, Wheezing, Shortness of Breath sulfur 2022-0 202- No [id number] 5mL 5 mL, Unive rs hexafluorid 08-01 Intravenou i ty of e microsphr 17:00: 17:00 s, ONCE, 1 [place] (LUMASON) 00 :00 dose, On Medica l injection 5 Thu [place] mL 08/01/22 at 1100, Routine
council member approving Restricted medication : WOODY DIEGO [...] [place] mg 00 First dose Medical on [facility] 08/01/22 at 0900, Until Discontinu ed, Routine levETIRAcet 2022- No 500mg 500 mg, U nivers am (KEPPRA) 08-01 Oral, BID, i ty of tablet 500 14:00: 23:56 First dose [place] mg 00 :35 on [facility] Medical 08/01/22 at Branch 0800, Until Discontinu ed, Routine carvediloL 2022- No 6.25mg 6.25 mg, Univers (COREG) 08-01 Oral, BID ity of tablet 6.25 14:00: 17:29 MEALS, [place] as mg :13 First dose Medical on [facility] 08/01/22 at 0800, Until Discontinu ed, Routine [...] [place] as mg 54 Starting Medical on [facility] 07/31/22 at 2352, Until Discontinu ed, Routine, Seizures, Agitation, Anxiety, ETOH / Cocaine Withdrawl foLIC acid 2022-0 Yes 1mg 1 mg, Univer s (FOLATE) 13 Oral, ity of tablet 1 mg 05:45: DAILY, [place] 00 First dose Medical on [facility] 07/31/22 at 2345, Until Discontinu ed, Routine thiamine 2022-0 Yes 100mg 100 mg, Unive rs (VITAMIN -13 Oral, ity of B1) tablet 05:45: DAILY, [place] 100 mg 00 First dose Medical on [facility] 07/31/22 at 2345, Until Discontinu ed, Routine LORazepam 2022-0 2022- No .5mg 0.5 mg, Univ ers (ATIVAN) 08-01 Slow IV ity of injection 05:30: 05:29 Push, [place] 0.5 mg 00 :00 ONCE, 1 Medical dose, On Branch [facility] 07/31/22 at 2330, MICHAEL atorvastati 2022-0 Yes 40mg 40 mg, Univ ers n (LIPITOR) 08-01 Oral, QHS, it y of tablet 40 03:00: First dose [place] mg 00 on [facility] 07/31/22 at Branch 2100, Until Discontinu ed, Routine diphenhydrA 2022-0 Yes 25mg 25 mg, Univ ers MINE 13 Oral, ity of (BENADRYL) 00:32: Q6HPRN, [place] tablet 25 02 Starting Medica l mg on [facility] 07/31/22 at 1832, Until Discontinu ed, Routine, Itching enoxaparin 2022-0 Yes 40mg 40 mg, Unive rs (LOVENOX) 07-31 Subcutaneo ity of injection 23:00: us, DAILY, [place] 40 mg 00 First dose Medical on [facility] 07/31/22 at 1700, Until Discontinu ed, [...] 36 Starting Medica l tablet 1 on [facility] Branch tablet 07/31/22 at 1601, Until Discontinu ed, Routine, Pain (scale 7-10) HYDROcodone 2022-0 202- No 1{tbl} 1 tablet, Univers -acetaminop 07-31 Oral, ity of hen (NORCO 22:01: 22:00 Q6HPRN, [place] as 5) 5-325 mg 34 :34 Starting Medi kwame tablet 1 on [facility] Branch tablet 07/31/22 at 1601, Until 08/02/22 at 1600, Routine, Pain (scale 4-6) acetaminoph 2022-0 Yes 650mg 650 mg, Un lois en 07-31 Oral, ity of (TYLENOL) 22:01: Q6HPRN, [place] tablet 650 33 Starting Medic al mg [...] ity of succ 19:30: 18:54 Push, ONCE [place] (SOLU-MEDRO 00 :00 NOW, 1 Medica l [...] mouth ity o f tablet 17:15: daily. [place] 40 Medical Branch MULTIVITAMI Yes 1{tbl} Take 1 Tab Univers N ORAL 12 by mouth ity of 15:50: daily. [place] 57 Medical Branch loratadine Yes Take by [facility] ers (CLARITIN 12 mouth ity of LIQUI-GEL) 15:50: daily. [place] 10 mg 57 Medical capsule Branch ondansetron Yes 4mg Take 4 mg U nivers 4 mg tablet 12 by mouth ity of 15:50: every 8 [place] 57 (eight) Medical hours as Branch needed. omega-3 Yes 1g Take 1 g [facility] fatty 12 by mouth ity of acids-vitam 15:21: daily. [facility] (FISH 27 Medical OIL) 1,000 Branch mg capsule TAKE ONE No (1) 1-09 TABLET(S) 00:00: BY MOUTH 00 THREE TIMES A DAY NEEDED. Methylpredn 2021-07- No [id number] 4mg Take 1 Univers isolone 4 0-22 10-24 tablet ity of mg tablet 00:00: 04:59 through [place] 00 :00 enteral Medical tube in Branch the morning for 1 dose. Methylpredn 2021-07- No [id number] 4mg Take 1 Univers isolone 4 0-21 10-23 tablet ity of mg tablet 00:00: 04:59 through [place] 00 :00 enteral Medical tube every Branch 12 (twelve) hours for 2 doses. MULTIVITAMI 2021-07 Yes 1{tbl} Take 1 Tab Univers N ORAL 0-20 by mouth ity of 14:44: daily. [place] [address] Medical Branch omega-3 2021-07 Yes 1g Take 1 g Univer s fatty 0-20 by mouth ity of acids-vitam 14:44: daily. [place] in E (FISH 48 Medical OIL) 1,000 Branch mg capsule loratadine 2021-07 Yes Take by [facility] ers (CLARITIN 0-20 mouth ity of LIQUI-GEL) [...] [place] mg 00 First dose Medical on [facility] Branch 05/08/22 at 0900, Until Discontinu ed, Routine divalproex 2021-07 Yes 1000mg 1,000 mg, Univers (DEPAKOTE) 0-20 Oral, BID, ity of EC tablet 13:00: First dose [place] 1,000 mg 00 (after Medical last Branch modificati on) on [facility] 05/08/22 at 0800, Until Discontinu ed, Routine Methylpredn 2021-07 No 4mg 4 mg, Univ ers isolone 0-20 10-21 Oral, Q8H ity of (MEDROL) 08:50: 08:59 TAPER, 3 [place] tablet 4 mg 10 :00 doses, Medica l First dose Branch on [facility] 05/08/22 at 0400, Last dose on [facility] 05/08/22 at 2000, Routine acetaminoph 2021-07 Yes 1{tbl} 1 tablet, Univers en-codeine 0-20 Oral, ity of (TYLENOL 04:07: Q4HPRN, [place] #3) 300-30 01 Starting Medic al mg tablet 1 on Thu [place] tablet 05/07/22 at 2307, Until Discontinu ed, [...] [place] as 18 Starting Medical on Thu [place] 05/07/22 at 1902, Until Discontinu ed, Routine, Anxiety cyclobenzap 2021-07 Yes [id number] 5mg Take 1 Univers rine 5 mg 0-20 tablet by ity o f tablet 00:00: mouth in [place] [address] [facility] morning [facility] and 1 tablet at noon and 1 tablet in the evening. cyclobenzap 2021-07 Yes [id number] 5mg Take 1 Univers rine 5 mg 0-20 tablet by ity o f tablet 00:00: mouth in [address] and 1 tablet at noon and 1 tablet in the evening. cyclobenzap 2021-07 Yes [id number] 5mg Take 1 Univers rine 5 mg 0-20 tablet by ity o f tablet 00:00: mouth in [address] and 1 tablet at noon and 1 tablet in the evening. cyclobenzap 2021-07 Yes [id number] 5mg Take 1 Univers rine 5 mg 0-20 tablet by ity o f tablet 00:00: mouth in [address] morning [place] and 1 tablet at noon and 1 tablet in the evening. cyclobenzap 2021-07 Yes [id number] 5mg Take 1 Univers rine 5 mg 0-20 tablet by ity o f tablet 00:00: mouth in [address] and 1 tablet at noon and 1 tablet in the evening. cyclobenzap 2021-07 Yes [id number] 5mg Take 1 Univers rine 5 mg 0-20 tablet by ity o f tablet 00:00: mouth in [place] 00 the Medical morning Branch and 1 tablet at noon and 1 tablet in the evening. cyclobenzap 2021-07 Yes [id number] 5mg Take 1 Univers rine 5 mg 0-20 tablet by ity o f tablet 00:00: mouth in [place] 00 the Medical morning Branch and 1 tablet at noon and 1 tablet in the evening. DULoxetine 2021-07- No [id number] 60mg Take 2 Univers (CYMBALTA) 0-20 11-20 capsules ity of 30 mg 00:00: 05:59 by mouth [place] capsule 00 :00 in the Medical morning Branch for 30 days. divalproex 2021-07- No [id number] 750mg Take 3 Univers (DEPAKOTE) 0-20 11-20 tablets by it y of 250 mg EC 00:00: 05:59 mouth [place] tablet 00 :00 every 8 Medical (eight) Branch hours for 30 days. LORazepam 1 2021-07- No [id number] 1mg Take 1 Univers mg tablet 0-20 [...] Indication s: acute pain Methylpredn 2021-07- No [id number] 4mg Take 1 Univers isolone 4 0-20 10-22 tablet by ity of mg tablet 00:00: 04:59 mouth [place] 00 :00 every 8 Medical (eight) Branch hours for 3 doses. divalproex 2021-07- No 750mg 750 mg, Un lois (DEPAKOTE) 0-19 10-20 Oral, BID, it y of EC tablet 01:00: 09:40 First dose [place] 750 mg 00 :23 on [facility] 05/06/22 Branch at 1999, Until Discontinu ed, Routine levETIRAcet 2021-07 No 1500mg 1,500 mg, Univers am (KEPPRA) 018 Oral, BID, i ty of tablet 13:00: 18:38 First dose [place] 1,500 mg 00 :22 (after Medical last Branch modificati on) on 05/06/22 at 0800, Until Discontinu ed, Routine levETIRAcet 2021-07 No 1000mg 1,000 mg, Univers am (KEPPRA) 018 05-06 IV ity of in NACL 05:00: 05:46 Piggyback, [place]avier as (ISO-OS) 00 :00 ONCE, 1 Medical 1,000 dose, On mg/100 mL Thu RTU 05/06/22 at 0000, Administer over 15 Minutes, 100 mL methocarbam 2021-07 No 500mg 500 mg, U nivers oL 05-06 Oral, QID, ity of (ROBAXIN) 02:15: 23:21 First dose [place] tablet 500 00 :42 on [facility] Medical 05/05/22 Branch at 2115, Until Discontinu ed, Routine LORazepam 2021-07 No 2mg 2 mg, Univer s (ATIVAN) 05-06 Oral, ity of tablet 2 mg 01:30: 01:03 ONCE, 1 [place] 00 :00 dose, On [facility] 05/05/22 at 2030, Routine levETIRAcet 2021-07 No 1000mg 1,000 mg, Univers am (KEPPRA) 05-06 Oral, BID, i ty of tablet 01:00: 04:48 First dose [place] 1,000 mg 00 :06 on [facility] 05/05/22 Branch at 2000, Until Discontinu ed, Routine enoxaparin 2021-07 Yes 40mg 40 mg, Unive rs (LOVENOX) 018 Subcutaneo ity of injection 00:15: us, Q24H, [place] as 40 mg 00 First dose Medical on [facility] Branch 05/05/22 at 1915, Until Discontinu ed, Routine levETIRAcet 2021-07 No 1000mg 1,000 mg, Univers am (KEPPRA) 017 - IV ity of in NACL 19:45: 20:05 Piggyback, [place] as (ISO-OS) 00 :00 ONCE, 1 Medical 1,000 dose, On Branch mg/100 mL [facility] RTU 05/05/22 at 1445, Administer over 15 Minutes, 100 mL clonazePAM 2021-07 Yes .5mg 0.5 mg, Univ ers (KLONOPIN) 0-17 Oral, BID, ity of tablet 0.5 19:30: First dose [place] mg 00 on [facility] 05/05/22 Branch at 1430, Until Discontinu ed, Routine ibuprofen 2021-07 Yes 600mg 600 mg, Univ ers (IBU) 0-17 Oral, TID ity of tablet 600 19:30: MEALS, [place] mg 00 First dose Medical on [facility] 05/05/22 at 1430, Until Discontinu ed, Routine gabapentin 2021-07 Yes 300mg 300 mg, Uni vers (NEURONTIN) 0-17 Oral, TID, it y of capsule 300 19:30: First dose [place] mg 00 on [facility] 05/05/22 Branch at 1430, Until Discontinu ed, Routine cyclobenzap 2021-07 Yes 5mg 5 mg, Unive rs rine 0-17 Oral, TID, ity of (FLEXERIL) 19:30: First dose [place] tablet 5 mg 00 on [facility] Medica l 05/05/22 Branch at 1430, Until Discontinu ed, Routine acetaminoph 2021-07 Yes 1000mg 1,000 mg, Univers en 0-17 Oral, Q8H, ity of (TYLENOL) 19:30: First dose [place] tablet 00 on [facility] [facility]000 mg 05/05/22 Branch at 1430, Until Discontinu ed, Routine pantoprazol 2021-07 Yes 40mg 40 mg, Univ ers e 0-17 Oral, ity of (PROTONIX) 14:00: DAILY, [place] EC tablet 00 First dose Medi kwame 40 mg on [facility] 05/05/22 at 0900, Until Discontinu ed, Routine docusate 2021-07 Yes 100mg 100 mg, Unive rs (COLACE) 0-17 Oral, ity of capsule 100 14:00: [place], [place] mg 00 First dose Medical on [facility] 05/05/22 at 0900, Until Discontinu ed, Routine HYDROcodone 2021-07- No 1{tbl} 1 tablet, Univers -acetaminop 0-17 10-17 Oral, ity of hen (NORCO) 10:32: 19:18 Q6HPRN, [place] 10-325 mg 02 :52 Starting Medica l tablet 1 on [facility] tablet 05/05/22 at 0532, Until Thu05/05/22 at 1418, Routine, Pain (scale 7-10) ondansetron 2021-07 Yes 4mg 4 mg, Slow Univers (ZOFRAN 0-17 IV Push, ity of (PF)) 06:49: Q6HPRN, [place] injection 4 57 Starting Medi kwame mg on [facility] Branch 05/05/22 at 0149, Until Discontinu ed, Routine, Nausea and Vomiting (N/V) HYDROcodone 2021-07- No 1{tbl} 1 tablet, Univers -acetaminop 0-17 10-17 Oral, ity of hen (NORCO 06:49: 10:32 Q6HPRN, [place] as 5) 5-325 mg 41 :14 Starting Medi kwame tablet 1 on [facility] tablet 05/05/22 at 0149, Until Thu05/05/22 at 0532, Routine, Pain (scale 7-10) acetaminoph 2021-07 No 325mg 325 mg, U nivers en 0-17 - Oral, ity of (TYLENOL) 06:49: 19:18 Q4HPRN, [place] 325 39 :52 Starting Medic al mg on [facility] Branch 05/05/22 at 0149, Until Thu05/05/22 at 1418, Routine, Pain (scale 4-6) ondansetron 2021-07- No 4mg 4 mg, Univ ers (ZOFRAN) 0-17 -17 Oral, ity of tablet 4 mg 04:00: 03:26 ONCE, 1 [place] 00 :00 dose, On [facility] Branch 05/04/22 at 2300, Routine morpHINE (2 2021-07- No 2mg 2 mg, Slow Univers mg/mL) 0-17 10-17 IV Push, ity of injection 2 04:00: 03:26 ONCE, 1 [place] mg 00 :00 dose, On [facility] 05/04/22 at 2300, Routine aspirin 81 0 Yes [id number] 81mg Take 1 U nivers mg chewable 9-28 tablet by ity of tablet 00:00: mouth in [place] 00 the Medical morning. Branch aspirin 81 2021-0 Yes [id number] 81mg Take 1 U nivers mg chewable 9-28 tablet by ity of tablet 00:00: mouth in [place] 00 the Medical morning. Branch aspirin 81 0 Yes [id number] 81mg Take 1 U nivers mg chewable 9-28 tablet by ity of tablet 00:00: mouth in [place] 00 the Medical morning. Branch aspirin 81 0 Yes [id number] 81mg Take 1 U nivers mg chewable 9-28 tablet by ity of tablet 00:00: mouth in [place] 00 the Medical morning. Branch aspirin 81 2021-0 Yes [id number] 81mg Take 1 U nivers mg chewable 9-28 tablet by ity of tablet 00:00: mouth in [place] 00 the Medical morning. Branch aspirin 81 0 Yes [id number] 81mg Take 1 U nivers mg chewable 9-28 tablet by ity of tablet 00:00: mouth in [place] the Medical morning. Branch aspirin 81 0 Yes [id number] 81mg Take 1 U nivers mg chewable 9-28 tablet by ity of tablet 00:00: mouth in [place] 00 the Medical morning. Branch aspirin 81 0 Yes [id number] 81mg Take 1 U nivers mg chewable 9-28 tablet by ity of tablet 00:00: mouth in [place] 00 the Medical morning. [place] MULTIVITAMI Yes 1{tbl} Take 1 Tab Univers N ORAL 9-27 by mouth ity of 17:39: daily. [place] 14 Medical Branch omega-3 Yes 1g Take [...] Branch 04/14/22 at 2115, Routine levETIRAcet Yes [id number] 1000mg Take 1 Univers am 1,000 mg 9-27 tablet by ity of tablet 00:00: mouth in [place] 00 the Medical morning Branch and 1 tablet in the evening. atorvastati Yes [id number] 40mg Take 1 Univers n 40 mg 9-27 tablet by ity of tablet 00:00: mouth at [place] [address] bedtime. Medical Branch atorvastati Yes [id number] 40mg Take 1 Univers n 40 mg 9-27 tablet by ity of tablet 00:00: mouth at [place] [address] bedtime. Medical Branch atorvastati Yes [id number] 40mg Take 1 Univers n 40 mg 9-27 tablet by ity of tablet 00:00: mouth at [place] [address] bedtime. Medical Branch atorvastati Yes [id number] 40mg Take 1 Univers n 40 mg 9-27 tablet by ity of tablet 00:00: mouth at [place] [address] bedtime. Medical Branch atorvastati Yes [id number] 40mg Take 1 Univers n 40 mg 9-27 tablet by ity of tablet 00:00: mouth at [place] [address] bedtime. Medical Branch atorvastati Yes [id number] 40mg Take 1 Univers n 40 mg 9-27 tablet by ity of tablet 00:00: mouth at [place] [address] bedtime. Medical Branch atorvastati Yes [id number] 40mg Take 1 Univers n 40 mg 9-27 tablet by ity of tablet 00:00: mouth at [place] [address] bedtime. Medical Branch atorvastati Yes [id number] 40mg Take 1 Univers n 40 mg 9-27 tablet by ity of tablet 00:00: mouth at [place] [address] bedtime. Medical Branch levETIRAcet 2021- No [id number] 1000mg Take 1 Univers am 1,000 mg 9-27 10-20 tablet by it y of tablet 00:00: 00:00 mouth in [place] 00 :00 the Medical morning Branch and 1 tablet in the evening. lidocaine 5 2021- No [id number] 1{patch Apply 1 Univers % (700 9-27 [...] 12 Medical patch 1 Hours, Branch Patch [id number], Starting on Thu04/14/22 at 1645, Until Discontinu [...] 7-10), Pain (scale 4-6) sulfur 2021- No [id number] 5mL 5 mL, Univ ers hexafluorid 04-14 Intravenou i ty of e microsphr 16:45: 16:45 s, ONCE, 1 [place] (LUMASON) 00 :00 dose, On Medica l injection 5 [facility] mL 04/14/22 at 1145, Routine
council member approving Restricted medication : [employer] clopidogreL 2021-0 Yes 75mg 75 mg, Univ ers (PLAVIX) 75 04-14 Oral, ity of mg tablet 14:00: DAILY, [place] 75 mg 00 First dose Medical on [facility] Branch 04/14/22 at 0900, Until Discontinu ed, Routine pantoprazol Yes 40mg 40 mg, Univ ers e 04-14 Oral, ity of (PROTONIX) 14:00: DAILY, [place] EC tablet 00 First dose Medi kwame 40 mg on [facility] 04/14/22 at 0900, Until Discontinu ed, Routine atorvastati Yes 40mg 40 mg, Univ ers n (LIPITOR) 04-14 Oral, QHS, it y of tablet 40 02:00: First dose [place] mg 00 on [facility] 04/13/22 at Branch 2100, Until Discontinu ed, Routine LORazepam 2021- No 1mg 1 mg, Univer s (ATIVAN) 04-14 Oral, ity of tablet 1 mg 01:30: 01:45 ONCE, 1 [place] 00 :00 dose, On Medical [facility] 04/13/22 at 2030, Routine methocarbam Yes 500mg 500 mg, Un lois oL 04-14 Oral, QID, ity of (ROBAXIN) 01:00: First dose [place] tablet 500 00 on [facility] mg 04/13/22 at Branch 2000, Until Discontinu ed, Routine heparin 0 Yes 5000U 5,000 Univers (porcine) 04-14 Units, ity of injection 01:00: Subcutaneo [place] 5,000 Units 00 us, Q12H, Med ical First dose Branch on [place] 04/13/22 at 2000, Until Discontinu ed, Routine acetaminoph 2021- No 650mg 650 mg, U nivers en 04-14 Oral, ity of (TYLENOL) 00:23: 21:29 Q6HPRN, [place] tablet 650 25 :42 Starting Medic al mg on [facility] 04/13/22 at 1923, Until [facility] 04/14/22 at 1629, Routine, Pain (scale 1-3), Pain (scale 4-6), Temp > 38.5 C, Temp > 37.5 C lidocaine 2021- No 1{patch 1 Patch, Univers (LIDODERM) 04-14 } Topical, ity of 5 % (700 00:22: 13:51 Administer [place] mg/patch) 00 :00 over 12 Medical patch 1 Hours, [place] Patch ONCE, 1 dose, On [place] 04/13/22 at 1930, Routine FENTanyl PF 2021- No 50ug 50 mcg, Un lois (SUBLIMAZE 04-13 Slow IV ity o f (PF)) 20:30: 19:22 Push, [place] injection 00 :00 ONCE, 1 Medical 50 mcg dose, On [facility] 04/13/22 at 1530, Routine aspirin 2021- No 650mg 650 mg, Unive rs chewable 04-13 Oral, ity of tablet 650 20:15: 20:15 ONCE, 1 [place] mg 00 :00 dose, On Medical [facility] 04/13/22 at 1515, Routine clopidogreL 2021- No 300mg 300 mg, U nivers (PLAVIX) 04-13 Oral, ity of 300 mg 20:00: 19:15 ONCE, 1 [place] tablet 300 00 :00 dose, On Medic al mg [facility] 04/13/22 at 1500, Routine ondansetron 2021- No 4mg 4 mg, Slow Univers (ZOFRAN 04-13 IV Push, ity of (PF)) 19:30: 19:22 ONCE, 1 [place] injection 4 00 :00 dose, On Medi kwame mg [facility] 04/13/22 at 1430, MICHAEL iopamidol 2021- No [id number] 100mL 100 mL, Univers (ISOVUE 04-13 Intravenou ity o f 370-500 mL) 18:31: 18:32 s, ONCE, 1 [place] injection 00 :00 dose, On Medica l 100 mL [facility] 04/13/22 at 1345, Routine NaCl 0.9% [...] :00 dose, On Medical 1,000 mg 11/23/21 Bran h at 1715, MICHAEL ondansetron 2021- No [...] No 1500mg 1,500 mg, Univers am (KEPPRA) 5-07 05-07 IV ity of in NACL 21:30: 20:47 Piggyback, [place] as (ISO-OS) 00 :00 ONCE, 1 Medical 1,500 dose, On Branch mg/100 mL 11/23/21 RTU at 1630, Administer over 15 Minutes, 100 mL Dose 2-0 No Unknown 4-08 00:00: 00 Dose 2022-0 No Unknown 4-08 00:00: 00 Prozac 20 2-0 No 1mg mg capsule 3-21 00:00: 00 Prozac 20 2-0 No 1mg mg capsule 3-21 00:00: 00 [...] ity of (LEVAQUIN) 04:00: 04:22 ONCE, 1 [place] tablet 500 00 :00 dose, Sat [...] ity of (PF)) 01:58: 02:12 ONCE, 1 [place] injection 4 00 :00 dose, Sat Med ical mg 03/16/21 at Branch 2100, MICHAEL ipratropium 2020- No 3mL 3 mL, Univ ers -albuteroL 03-17 Inhalation it y of (DUONEB) 01:57: 02:15 , ONCE, 1 [place] 0.5 mg-3 00 :00 dose, Sat Medica l mg(2.5 mg 03/16/21 at [facility])/3 mL 2100, MICHAEL nebulizer solution [...] nebulizer solution 3 mL levoFLOXaci 2020- No [id number] 500mg Take 1 Univers n 500 mg 03-17 tablet by ity o f tablet 00:00: 04:59 mouth [place] 00 :00 daily for Medical 6 days. Branch levoFLOXaci 2020- No [id number] 500mg Take 1 Univers n 500 mg 03-17 tablet by ity o f tablet 00:00: 04:59 mouth [place] 00 :00 daily for Medical 6 days. Branch levoFLOXaci 2020- No [id number] 500mg Take 1 Univers n 500 mg 03-17 tablet by ity o f tablet 00:00: 04:59 mouth [place] 00 :00 daily for Medical 6 days. Branch levoFLOXaci 2020- No [id number] 500mg Take 1 Univers n 500 mg 03-17 tablet by ity o f tablet 00:00: 04:59 mouth [place] 00 :00 daily for Medical 6 days. Branch predniSONE 2020- No [id number] 30mg Take 3 Univers 10 mg 03-17 tablets by ity of tablet 00:00: 04:59 mouth [place] 00 :00 daily for Medical 4 days. Branch predniSONE 2020- No [id number] 30mg Take 3 Univers 10 mg 03-17 tablets by ity of tablet 00:00: 04:59 mouth [place] 00 :00 daily for Medical 4 days. [place] predniSONE 2020- No [id number] 30mg Take 3 Univers 10 mg 03-17 tablets by ity of tablet 00:00: 04:59 mouth [place] 00 :00 daily for Medical 4 days. Branch predniSONE No [id number] 30mg Take 3 Univers 10 mg 03-17 tablets by ity of tablet 00:00: 04:59 mouth [place] 00 :00 daily for Medical 4 days. [place] albuterol 2020- No [id number] 4{puff} 4 Puff, Univers (VENTOLIN) 03-15 Inhalation it y of inhaler 4 01:45: 00:44 , ONCE, 1 [place] Puff 00 :00 dose, [facility] Medical 03/14/21 at [place] 2044, Routine dexamethaso 2020- No [id number] 10mg 10 mg, Univers ne 03-15 Intramuscu ity of (DECADRON) 01:45: 00:45 lar, ONCE, [place] injection 00 :00 1 dose, Medical 10 mg Arpita [place] 03/14/21 at 2044, Routine albuterol Yes [id number] 2.5mg Inhale 3 Univers 2.5 mg /3 03-15 mL every 4 ity of mL (0.083 00:00: (four) [place] %) 00 hours as Medical nebulizer needed for Bran ch solution Wheezing or Shortness of Breath. albuterol 1-0 Yes [id number] 2.5mg Inhale 3 Univers 2.5 mg /3 8-27 mL every 4 ity of mL (0.083 00:00: (four) [place] %) 00 hours as Medical nebulizer needed for Bran ch solution Wheezing or Shortness of Breath. albuterol 2020-0 Yes [id number] 2.5mg Inhale 3 Univers 2.5 mg /3 8-27 mL every 4 ity of mL (0.083 00:00: (four) [place] %) 00 hours as Medical nebulizer needed for Bran ch solution Wheezing or Shortness of Breath. albuterol 2020-0 Yes [id number] 2.5mg Inhale 3 Univers 2.5 mg /3 8-27 mL every 4 ity of mL (0.083 00:00: ([facility]) [place] %) 00 hours as Medical nebulizer needed for Bran ch solution Wheezing or Shortness of Breath. albuterol 2020-0 Yes [id number] 2.5mg Inhale 3 Univers 2.5 mg /3 8-27 mL every 4 ity of mL (0.083 00:00: (four) [place] %) 00 hours as Medical nebulizer needed for Bran ch solution Wheezing or Shortness of Breath. albuterol 2020-0 Yes [id number] 2.5mg Inhale 3 Univers 2.5 mg /3 8-27 mL every 4 ity of mL (0.083 00:00: ([facility] [place] %) 00 hours as Medical nebulizer needed for Bran ch solution Wheezing or Shortness of Breath. albuterol 2020-0 Yes [id number] 2.5mg Inhale 3 Univers 2.5 mg /3 8-27 mL every 4 ity of mL (0.083 00:00: (four) [place] %) 00 hours as Medical nebulizer needed for Bran ch solution Wheezing or Shortness of Breath. albuterol 1-0 Yes [id number] 2.5mg Inhale 3 Univers 2.5 mg /3 8-27 mL every 4 ity of mL (0.083 00:00: (four) [place] %) 00 hours as Medical nebulizer needed for Bran ch solution Wheezing or Shortness of Breath. albuterol 2021-0 Yes [id number] 2.5mg Inhale 3 Univers 2.5 mg /3 8-27 mL every 4 ity of mL (0.083 00:00: (four) [place] %) 00 hours as Medical nebulizer needed for Bran ch solution Wheezing or Shortness of Breath. albuterol 2020-0 Yes [id number] 2.5mg Inhale 3 Univers 2.5 mg /3 8-27 mL every 4 ity of mL (0.083 00:00: (four) [place] %) 00 hours as Medical nebulizer needed for Bran ch solution Wheezing or Shortness of Breath. albuterol 2020-0 Yes [id number] 2.5mg Inhale 3 Univers 2.5 mg /3 8-27 mL every 4 ity of mL (0.083 00:00: (four) [place] %) 00 hours as Medical nebulizer needed for Bran ch solution Wheezing or Shortness of Breath. albuterol 2020-0 Yes [id number] 2.5mg Inhale 3 Univers 2.5 mg /3 8-27 mL every 4 ity of mL (0.083 00:00: (four) [place] %) 00 hours as Medical nebulizer needed for Bran ch solution Wheezing or Shortness of Breath. albuterol 2020-0 Yes [id number] 2.5mg Inhale 3 Univers 2.5 mg /3 8-27 mL every 4 ity of mL (0.083 00:00: (four) [place] %) 00 hours as Medical nebulizer needed for Bran ch solution Wheezing or Shortness of Breath. albuterol 2020-0 Yes [id number] 2.5mg Inhale 3 Univers 2.5 mg /3 8-27 mL every 4 ity of mL (0.083 00:00: (four) [place] %) 00 hours as Medical nebulizer needed for Bran ch solution Wheezing or Shortness of Breath. albuterol 2020-0 Yes [id number] 2.5mg Inhale 3 Univers 2.5 mg /3 8-27 mL every 4 ity of mL (0.083 00:00: (four) [place] %) 00 hours as Medical nebulizer needed for Bran ch solution Wheezing or Shortness of Breath. albuterol 2020-0 Yes [id number] 2.5mg Inhale 3 Univers 2.5 mg /3 8-27 mL every 4 ity of mL (0.083 00:00: (four) [place] %) 00 hours as Medical nebulizer needed for Bran ch solution Wheezing or Shortness of Breath. albuterol 0 Yes [id number] 2.5mg Inhale 3 Univers 2.5 mg /3 8-27 mL every 4 ity of mL (0.083 00:00: (four) [place] %) 00 hours as Medical nebulizer needed for Bran ch solution Wheezing or Shortness of Breath. albuterol 0 Yes [id number] 2.5mg Inhale 3 Univers 2.5 mg /3 [...] (KEPPRA 8-03 mouth. ity of ORAL) 19:45: [address] levetiracet Yes Take by Uni vers am (KEPPRA 8-03 mouth. ity of ORAL) 19:45: [address] levetiracet 0 Yes Take by Uni vers am (KEPPRA 8-03 mouth. ity of ORAL) 19:45: [address] Branch levetiracet 0 Yes Take by Uni vers am (KEPPRA 8-03 mouth. ity of ORAL) 19:45: [address] levetiracet 0 Yes Take by Uni vers am (KEPPRA 8-03 mouth. ity of ORAL) 19:45: [address] levetiracet 0 Yes Take by Uni vers am (KEPPRA 8-03 mouth. ity of ORAL) 19:45: [address] Branch LISINOPRIL- 2020- No Take by Un lois HYDROCHLORO 02-19 mouth. ity o f THIAZIDE 19:41: 00:00 [place] ORAL 15 :00 [facility] Branch dicyclomine 2020- No 20mg 20 mg, [...] Tue Medica l NaCl 0.9% 02/19/21 at [facility] h (NS) 50 mL 1415, 50 [...] at Branch 1200, MICHAEL iopamidol 2020- No [id number] 100mL 100 mL, Univers (ISOVUE 02-19 Intravenou ity o f 370-500 mL) 16:35: 16:45 s, ONCE, 1 [place] injection 00 :00 dose, Tue Medic al 100 mL 02/19/21 at Branch 1145, Routine levetiracet 0 Yes Take by Uni vers am (KEPPRA 8-03 mouth. ity of ORAL) 14:45: [address] levetiracet 0 Yes Take by Uni vers am (KEPPRA 8-03 mouth. ity of ORAL) 14:45: [address] levetiracet 0 Yes Take by Uni vers am (KEPPRA 8-03 mouth. ity of ORAL) 14:45: [address] levetiracet 0 Yes Take by Uni vers am (KEPPRA 8-03 mouth. ity of ORAL) 14:45: [address] levetiracet 0 Yes Take by Uni vers am (KEPPRA 8-03 mouth. ity of ORAL) 14:45: [address] proMETHazin 2020-0 Yes [id number] 25mg Take 1 Univers e 25 mg 8-03 tablet by ity of tablet 00:00: mouth [place] 00 every 6 Medical (six) Branch hours as needed for Nausea and Vomiting (N/V). dicyclomine 2020-0 Yes [id number] 20mg Take 1 Univers 20 mg 8-03 tablet by ity of tablet 00:00: mouth 4 00 (four) Medical times Branch daily as needed for Abdominal pain. proMETHazin 2020-0 Yes [id number] 25mg Take 1 Univers e 25 mg 8-03 tablet by ity of tablet 00:00: mouth [place] 00 every 6 Medical (six) Branch hours as needed for Nausea and Vomiting (N/V). dicyclomine 2020-0 Yes [id number] 20mg Take 1 Univers 20 mg 8-03 tablet by ity of tablet 00:00: mouth 4 [place] 00 (four) Medical times Branch daily as needed for Abdominal pain. proMETHazin 202-0 Yes [id number] 25mg Take 1 Univers e 25 mg 8-03 tablet by ity of tablet 00:00: mouth [place] 00 every 6 Medical (six) Branch hours as needed for Nausea and Vomiting (N/V). dicyclomine 202-0 Yes [id number] 20mg Take 1 Univers 20 mg 8-03 tablet by ity of tablet 00:00: mouth 4 [place] 00 (four) Medical times Branch daily as needed for Abdominal pain. proMETHazin 2020-0 Yes [id number] 25mg Take 1 Univers e 25 mg 8-03 tablet by ity of tablet 00:00: mouth [place] 00 every 6 Medical (six) Branch hours as needed for Nausea and Vomiting (N/V). dicyclomine 2020-0 Yes [id number] 20mg Take 1 Univers 20 mg 8-03 tablet by ity of tablet 00:00: mouth (four) Medical times Branch daily as needed for Abdominal pain. proMETHazin 2020-0 Yes [id number] 25mg Take 1 Univers e 25 mg 8-03 tablet by ity of tablet 00:00: mouth [place] 00 every 6 Medical (six) Branch hours as needed for Nausea and Vomiting (N/V). dicyclomine 2020-0 Yes [id number] 20mg Take 1 Univers 20 mg 8-03 tablet by ity of tablet 00:00: mouth (four) Medical times Branch daily as needed for Abdominal pain. proMETHazin 2020-0 Yes [id number] 25mg Take 1 Univers e 25 mg 8-03 tablet by ity of tablet 00:00: mouth [place] 00 every 6 Medical (six) Branch hours as needed for Nausea and Vomiting (N/V). dicyclomine 2020-0 Yes [id number] 20mg Take 1 Univers 20 mg 8-03 tablet by ity of tablet 00:00: mouth (four) Medical times Branch daily as needed for Abdominal pain. proMETHazin 2020-0 Yes [id number] 25mg Take 1 Univers e 25 mg 8-03 tablet by ity of tablet 00:00: mouth [place] 00 every 6 Medical (six) Branch hours as needed for Nausea and Vomiting (N/V). dicyclomine 202-0 Yes [id number] 20mg Take 1 Univers 20 mg 8-03 tablet by ity of tablet 00:00: mouth (four) Medical times Branch daily as needed for Abdominal pain. proMETHazin 2020-0 Yes [id number] 25mg Take 1 Univers e 25 mg 8-03 tablet by ity of tablet 00:00: mouth [place] 00 every 6 Medical (six) Branch hours as needed for Nausea and Vomiting (N/V). dicyclomine 2020-0 Yes [id number] 20mg Take 1 Univers 20 mg 8-03 tablet by ity of tablet 00:00: mouth (four) Medical times Branch daily as needed for Abdominal pain. proMETHazin 2020-0 Yes [id number] 25mg Take 1 Univers e 25 mg 8-03 tablet by ity of tablet 00:00: mouth [place] 00 every 6 Medical (six) Branch hours as needed for Nausea and Vomiting (N/V). dicyclomine 2020-0 Yes [id number] 20mg Take 1 Univers 20 mg 8-03 tablet by ity of tablet 00:00: mouth (four) Medical times Branch daily as needed for Abdominal pain. proMETHazin 2020-0 Yes [id number] 25mg Take 1 Univers e 25 mg 8-03 tablet by ity of tablet 00:00: mouth 00 every 6 Medical (six) Branch hours as needed for Nausea and Vomiting (N/V). dicyclomine 2020-0 Yes [id number] 20mg Take 1 Univers 20 mg 8-03 tablet by ity of tablet 00:00: mouth (four) Medical times Branch daily as needed for Abdominal pain. proMETHazin 2020-0 Yes [id number] 25mg Take 1 Univers e 25 mg 8-03 tablet by ity of tablet 00:00: mouth 00 every 6 Medical (six) Branch hours as needed for Nausea and Vomiting (N/V). dicyclomine 2020-0 Yes [id number] 20mg Take 1 Univers 20 mg 8-03 tablet by ity of tablet 00:00: mouth (four) Medical times Branch daily as needed for Abdominal pain. proMETHazin 2020-0 Yes [id number] 25mg Take 1 Univers e 25 mg 8-03 tablet by ity of tablet 00:00: mouth 00 every 6 Medical (six) Branch hours as needed for Nausea and Vomiting (N/V). dicyclomine 202-0 Yes [id number] 20mg Take 1 Univers 20 mg 8-03 tablet by ity of tablet 00:00: mouth (four) Medical times Branch daily as needed for Abdominal pain. proMETHazin 2020-0 Yes [id number] 25mg Take 1 Univers e 25 mg 8-03 tablet by ity of tablet 00:00: mouth [place] 00 every 6 Medical (six) Branch hours as needed for Nausea and Vomiting (N/V). dicyclomine 2020-0 Yes [id number] 20mg Take 1 Univers 20 mg 8-03 tablet by ity of tablet 00:00: mouth 4 (four) Medical times Branch daily as needed for Abdominal pain. proMETHazin 2020-0 Yes [id number] 25mg Take 1 Univers e 25 mg 8-03 tablet by ity of tablet 00:00: mouth [place] 00 every 6 Medical (six) Branch hours as needed for Nausea and Vomiting (N/V). dicyclomine 2020-0 Yes [id number] 20mg Take 1 Univers 20 mg 8-03 tablet by ity of tablet 00:00: mouth (four) Medical times Branch daily as needed for Abdominal pain. proMETHazin 2020-0 Yes [id number] 25mg Take 1 Univers e 25 mg 8-03 tablet by ity of tablet 00:00: mouth 00 every 6 Medical (six) Branch hours as needed for Nausea and Vomiting (N/V). dicyclomine 2020-0 Yes [id number] 20mg Take 1 Univers 20 mg 8-03 tablet by ity of tablet 00:00: mouth (four) Medical times Branch daily as needed for Abdominal pain. proMETHazin 2020-0 Yes [id number] 25mg Take 1 Univers e 25 mg 8-03 tablet by ity of tablet 00:00: mouth 00 every 6 Medical (six) Branch hours as needed for Nausea and Vomiting (N/V). dicyclomine 2020-0 Yes [id number] 20mg Take 1 Univers 20 mg 8-03 tablet by ity of tablet 00:00: mouth (four) Medical times Branch daily as needed for Abdominal pain. proMETHazin 2020-0 Yes [id number] 25mg Take 1 Univers e 25 mg 8-03 tablet by ity of tablet 00:00: mouth [place] 00 every 6 Medical (six) Branch hours as needed for Nausea and Vomiting (N/V). dicyclomine 2021-0 Yes [id number] 20mg Take 1 Univers 20 mg 8-03 tablet by ity of tablet 00:00: mouth (four) Medical times Branch daily as needed for Abdominal pain. proMETHazin Yes [id number] 25mg Take 1 Univers e 25 mg 8-03 tablet by ity of tablet 00:00: mouth [place] 00 every 6 Medical (six) Branch hours as needed for Nausea and Vomiting (N/V). dicyclomine Yes [id number] 20mg Take 1 Univers 20 mg 8-03 tablet by ity of tablet 00:00: mouth 4 [place] 00 (four) Medical times Branch daily as needed for Abdominal pain. proMETHazin Yes [id number] 25mg Take 1 Univers e 25 mg 8-03 tablet by ity of tablet 00:00: mouth [place] 00 every 6 Medical (six) Branch hours as needed for Nausea and Vomiting (N/V). dicyclomine Yes [id number] 20mg Take 1 Univers 20 mg 8-03 [...] by mouth ity of (PROTONIX) 20:05: daily. 40 mg EC Medical tablet Branch LISINOPRIL- Yes Take by Uni vers HYDROCHLORO 7-24 mouth. ity of THIAZIDE 20:05: [place] ORAL 01 Medical Branch ondansetron 2018-0 Yes 4mg Take 4 mg U nivers (ZOFRAN) 4 7-24 by mouth ity o f mg tablet 20:05: every 8 [place] [address] (eight) Medical hours as Branch needed. pantoprazol [...] o f mg tablet 20:05: every 8 [place] [address] (eight) Medical hours as Branch needed. pantoprazol 2018-0 Yes 40mg Take 40 mg Univers e 7-24 by mouth ity of (PROTONIX) 20:05: daily. [place] 40 mg EC Medical tablet Branch ondansetron 2018-0 Yes 4mg Take 4 mg U nivers (ZOFRAN) 4 7-24 by mouth ity o f mg tablet 20:05: every 8 [place] [address] (eight) Medical hours as Branch needed. pantoprazol 2018-0 Yes 40mg Take 40 mg Univers e 7-24 by mouth ity of (PROTONIX) 20:05: daily. [place] 40 mg EC 01 Medical tablet Branch ondansetron 2018-0 Yes 4mg Take 4 mg U nivers (ZOFRAN) 4 7-24 by mouth ity o f mg tablet 20:05: every 8 [place] [address] (eight) Medical hours as Branch needed. pantoprazol [...] 7-24 by mouth ity of 19:58: daily. [place] [address] Medical Branch loratadine Yes Take by [facility] ers (CLARITIN 7-24 mouth ity of LIQUI-GEL) 19:58: daily. [place] 10 mg 14 Medical capsule Branch MULTIVITAMI Yes 1{tbl} Take 1 Tab Univers N ORAL 7-24 by mouth ity of 19:58: daily. [place] [address] Medical Branch loratadine 0 Yes Take by Univ ers (CLARITIN 7-24 mouth ity of LIQUI-GEL) 19:58: daily. [place] 10 mg 14 Medical capsule Branch MULTIVITAMI Yes 1{tbl} Take 1 Tab Univers N ORAL 7-24 by mouth ity of 19:58: daily. [place] [address] Medical Branch loratadine Yes Take by [facility] ers (CLARITIN 7-24 mouth ity of LIQUI-GEL) 19:58: daily. [place] 10 mg 14 Medical capsule Branch MULTIVITAMI Yes 1{tbl} Take 1 Tab Univers N ORAL 7-24 by mouth ity of 19:58: daily. [place] [address] Medical Branch loratadine 0 Yes Take by Univ ers (CLARITIN 7-24 mouth ity of LIQUI-GEL) 19:58: daily. [place] 10 mg 14 Medical capsule Branch MULTIVITAMI Yes 1{tbl} Take 1 Tab Univers N ORAL 7-24 by mouth ity of 19:58: daily. [place] [address] Medical Branch loratadine 0 Yes Take by [facility] ers (CLARITIN 7-24 mouth ity of LIQUI-GEL) 19:58: daily. [place] 10 mg 14 Medical capsule Branch MULTIVITAMI 2018-0 Yes 1{tbl} Take 1 Tab Univers N ORAL 7-24 by mouth ity of 19:58: daily. [place] 14 Medical Branch loratadine 2018-0 Yes Take by [facility] ers (CLARITIN 7-24 mouth ity of LIQUI-GEL) 19:58: daily. [place] 10 mg 14 Medical capsule Branch MULTIVITAMI 2018-0 Yes 1{tbl} Take 1 Tab Univers N ORAL 7-24 by mouth ity of 19:58: daily. [place] [address] Medical Branch loratadine 2018-0 Yes Take by [facility] ers (CLARITIN 7-24 mouth ity of LIQUI-GEL) [...] 7-24 by mouth ity of 14:58: daily. [place] [address] Medical Branch loratadine Yes Take by Uni vers (CLARITIN 7-24 mouth ity of LIQUI-GEL) 14:58: daily. [place] 10 mg 14 Medical capsule Branch MULTIVITAMI Yes 1{tbl} Take 1 Tab Univers N ORAL 7-24 by mouth ity of 14:58: daily. [place] [address] Medical Branch loratadine Yes Take by Univ ers (CLARITIN 7-24 mouth ity of LIQUI-GEL) 14:58: daily. [place] 10 mg 14 Medical capsule Branch MULTIVITAMI Yes 1{tbl} Take 1 Tab Univers N ORAL 7-24 by mouth ity of 14:58: daily. [place] [address] Medical Branch loratadine Yes Take by Univ ers (CLARITIN 7-24 mouth ity of LIQUI-GEL) 14:58: daily. [place] 10 mg 14 Medical capsule Branch MULTIVITAMI Yes 1{tbl} Take 1 Tab Univers N ORAL 7-24 by mouth ity of 14:58: daily. [place] [address] Medical Branch loratadine 0 Yes Take by Univ ers (CLARITIN 7-24 mouth ity of LIQUI-GEL) 14:58: daily. [place] 10 mg 14 Medical capsule Branch MULTIVITAMI Yes 1{tbl} Take 1 Tab Univers N ORAL 7-24 by mouth ity of 14:58: daily. [place] [address] Medical Branch loratadine Yes Take by Univ [...] needed for Nausea and Vomiting (N/V). carvedilol 2015- Yes 6.25mg Take 1 Tab [...] Filled Immunization Date Status Comments [facility] e Immunization Name Name SARS-COV-2 COVID-19 2022-02-19 [...] Unive rsity of PFIZER VACCINE 00:00:00 [place] [facility] kwame Branch SARS-COV-2 COVID-19 2021-05-24 Completed Unive rsity of PFIZER VACCINE 00:00:00 [place] [facility] kwame Branch SARS-COV-2 COVID-19 2021-05-24 Completed Unive rsity of PFIZER VACCINE 00:00:00 [place] [facility] kwame Branch SARS-COV-2 COVID-19 2021-05-24 Completed Unive rsity of PFIZER VACCINE 00:00:00 [place] [facility] Branch SARS-COV-2 COVID-19 2021-05-24 Completed Unive rsity of PFIZER VACCINE 00:00:00 [place] [facility] kwame Branch SARS-COV-2 COVID-19 2021-05-24 Completed Unive rsity of PFIZER VACCINE 00:00:00 [place] [facility] kwame Branch SARS-COV-2 COVID-19 2021-05-24 Completed Unive rsity of PFIZER VACCINE 00:00:00 [place] [facility] kwame Branch SARS-COV-2 COVID-19 2021-05-24 Completed Unive rsity of PFIZER VACCINE 00:00:00 [facility] Branch SARS-COV-2 COVID-19 2021-05-24 Completed Unive rsity of PFIZER VACCINE 00:00:00 [place] [facility] Branch SARS-COV-2 COVID-19 2021-05-24 Completed Unive rsity of PFIZER VACCINE 00:00:00 [facility] SARS-COV-2 COVID-19 2021-05-24 Completed Unive rsity of PFIZER VACCINE 00:00:00 [facility] Branch SARS-COV-2 COVID-19 2021-05-03 Completed Unive rsity of PFIZER VACCINE 00:00:00 [facility] SARS-COV-2 COVID-19 2021-05-03 Completed Unive rsity of PFIZER VACCINE 00:00:00 [facility] Branch SARS-COV-2 COVID-19 2021-05-03 Completed Unive rsity of PFIZER VACCINE 00:00:00 [facility] SARS-COV-2 COVID-19 2021-05-03 Completed Unive rsity of PFIZER VACCINE 00:00:00 [facility] Branch SARS-COV-2 COVID-19 2021-05-03 Completed Unive rsity of PFIZER VACCINE 00:00:00 [facility] SARS-COV-2 COVID-19 2021-05-03 Completed Unive rsity of PFIZER VACCINE 00:00:00 [facility] SARS-COV-2 COVID-19 2021-05-03 Completed Unive rsity of PFIZER VACCINE 00:00:00 [facility] SARS-COV-2 COVID-19 2021-05-03 Completed Unive rsity of PFIZER VACCINE 00:00:00 [facility] SARS-COV-2 COVID-19 2021-05-03 Completed Unive rsity of PFIZER VACCINE 00:00:00 [facility] SARS-COV-2 COVID-19 2021-05-03 Completed Unive rsity of PFIZER VACCINE 00:00:00 [facility] SARS-COV-2 COVID-19 2021-05-03 Completed Unive rsity of PFIZER VACCINE 00:00:00 [facility] SARS-COV-2 COVID-19 2021-05-03 Completed Unive rsity of PFIZER VACCINE 00:00:00 [facility] Vital Signs Vital Name Observation Time Observation Value Comments Source Systolic blood 2022-12-11 20:00:00 142 mm[Hg] Univer sity of pressure [facility] Diastolic blood 2022-12-11 20:00:00 90 mm[Hg] Unive rsity of pressure [facility] Respiratory rate 2022-12-11 20:00:00 24 /min Univ ersity of [place] [facility] Heart rate 2022-12-11 18:00:00 101 /min Universi ty of [place] [facility] Oxygen saturation in 2022-12-11 18:00:00 93 /min University of Arterial blood by [facility] Pulse oximetry Branch BMI 2022-12-11 13:55:00 35.43 kg/m2 Universi ty [facility] [place] [facility] Body temperature 2022-12-11 13:55:00 37.22 Radha Univ ersity of [place] [facility] Body weight 2022-12-11 13:55:00 90.719 kg Universi ty [facility] [place] [facility] Systolic blood 2022-11-18 05:34:00 152 mm[Hg] Univer sity of pressure [place] [facility] Diastolic blood 2022-11-18 05:34:00 98 mm[Hg] Unive rsity of pressure [place] [facility] Heart rate 2022-11-18 05:34:00 88 /min [facility]i ty [facility] [place] [facility] Respiratory rate 2022-11-18 05:34:00 18 /min Univ ersity of [place] [facility] Oxygen saturation in 2022-11-18 05:34:00 97 /min University of Arterial blood by [facility] Pulse oximetry Branch Body temperature 2022-11-17 22:28:00 37.06 Radha Univ ersity of [place] [facility] Body height 2022-11-17 22:28:00 160 cm Universi ty [facility] [place] [facility] Body weight 2022-11-17 22:28:00 99.791 kg [facility]i [facility] [place] [facility] BMI 2022-11-17 22:28:00 38.97 kg/m2 [facility] [place] [facility] Heart rate 2022-08-02 02:02:00 108 /min [facility] [place] [facility] Respiratory rate 2022-08-02 02:02:00 28 /min Univ ersity of [place] [facility] Oxygen saturation in 2022-08-02 02:02:00 97 /min University of Arterial blood by [facility] Pulse oximetry Branch Body temperature 2022-08-02 01:00:00 36.44 Radha Univ ersity of [place] [facility] Systolic blood 2022-08-01 23:29:00 145 mm[Hg] Univer sity of pressure [place] [facility] Diastolic blood 2022-08-01 23:29:00 103 mm[Hg] Unive rsity of pressure [place] [facility] Body weight 2022-08-01 09:16:00 97.977 kg Universi ty [facility] [place] [facility] BMI 2022-08-01 09:16:00 38.26 kg/m2 Universi ty of [place] [facility] Body height 2022-07-31 21:54:00 160 cm Universi ty [facility] [place] [facility] Systolic blood 2022-05-08 16:40:00 146 mm[Hg] Univer sity of pressure [place] [facility] Diastolic blood 2022-05-08 16:40:00 96 mm[Hg] Unive rsity of pressure [place] [facility] Heart rate 2022-05-08 16:40:00 112 /min Universi ty [facility] [place] [facility] Body temperature 2022-05-08 16:40:00 36.78 Radha Univ ersity of [place] [facility] Respiratory rate 2022-05-08 16:40:00 18 /min Univ ersity of [place] [facility] Oxygen saturation in 2022-05-08 16:40:00 94 /min University of Arterial blood by [place] [employer] Pulse oximetry Branch Body height 2022-05-05 23:44:00 160 cm Universi ty [facility] [place] [facility] Body weight 2022-05-05 23:37:00 81.647 kg Universi ty [facility] [place] [facility] BMI 2022-05-05 23:37:00 31.89 kg/m2 [facility]i ty [facility] [place] [facility] Systolic blood 2022-04-15 18:52:00 104 mm[Hg] Univer sity of pressure [place] [facility] Diastolic blood 2022-04-15 18:52:00 82 mm[Hg] Unive rsity of pressure [place] [facility] Heart rate 2022-04-15 18:52:00 114 /min Universi ty [facility] [place] [facility] Oxygen saturation in 2022-04-15 18:52:00 98 /min University of Arterial blood by [employer] kwame Pulse oximetry Branch Body temperature 2022-04-15 16:14:00 36.28 Radha Univ ersity of [place] [facility] Respiratory rate 2022-04-15 16:14:00 17 [...] 97 /min University of Arterial blood by [place] [employer] kwame Pulse oximetry Branch Body temperature 2021-11-23 [...] 96 /min University of Arterial blood by [place] [employer] kwame Pulse oximetry Branch Body temperature 2021-03-17 [...] of pressure [place] [facility] Heart rate 2021-03-15 00:14:00 100 /min Universi ty [facility] [place] [facility] Body temperature 2021-03-15 00:14:00 37.33 Radha [facility] ersity of [place] [facility] Respiratory rate 2021-03-15 00:14:00 24 /min [facility] ersity of [facility] Body height 2021-03-15 00:14:00 160 cm Universi ty of [place] [facility] Body weight 2021-03-15 00:14:00 58.968 kg Universi ty of [facility] BMI 2021-03-15 00:14:00 23.03 kg/m2 Universi ty [facility] Oxygen saturation in 2021-03-15 00:14:00 98 /min University of Arterial blood by [facility] Pulse oximetry Branch Systolic blood 2021-02-19 18:00:00 131 mm[Hg] Univer sity of [facility] Diastolic blood 2021-02-19 18:00:00 80 mm[Hg] Unive [facility] Heart rate 2021-02-19 18:00:00 83 /min Universi ty of [facility] Respiratory rate 2021-02-19 18:00:00 18 /min [facility] Oxygen saturation in 2021-02-19 18:00:00 100 /min University of Arterial blood by [facility] kwame Pulse oximetry Branch Body temperature 2021-02-19 15:47:00 37 Radha [facility] Body height 2021-02-19 15:47:00 160 cm [facility]i ty [facility] [place] [facility] Body weight 2021-02-19 15:47:00 58.968 kg [facility]i ty [facility] [place] [facility] BMI 2021-02-19 15:47:00 23.03 kg/m2 Universi [facility] Respiratory rate 2022-08-03 14:40:00 18 /min [facility] Systolic blood 2022-08-03 12:13:00 112 mm[Hg] [facility] Diastolic blood 2022-08-03 12:13:00 77 mm[Hg] [facility] Heart rate 2022-08-03 12:13:00 115 /min [facility] Oxygen saturation in 2022-08-03 12:13:00 93 /min [facility] Arterial blood by Medical Ce nter Pulse oximetry Body temperature 2022-08-03 12:00:00 36.83 Radha [facility] Body height 2022-08-02 21:52:00 160.2 cm [facility] Body weight 2022-08-02 21:52:00 95 kg [facility] BMI 2022-08-02 21:52:00 37.02 kg/m2 [facility] BP Systolic 2022-07-24 13:31:00 136 mm[Hg] [...] CT HEAD WO CONTRAST 2022-12-11 Alfonso Mulligan [place] f 18:36:49 [facility] URINE DRUG (IMMUNOASSAY) - 2022-12-11 [facility] COMPREHENSIVE DRUG SCREEN 17:13:00 [facility] URINALYSIS 2022-12-11 Alfonso Mulligan [place] of 17:13:[address] [facility] [address] CHEST PULMONARY ANGIOGRAM 2022-12-11 Alfonso Mulligan Uni versity of 16:26:39 [facility] MAGNESIUM 2022-12-11 Alfonso Mulligan [place] of 14:57:00 [facility] COMP. METABOLIC PANEL ([id number]) 2022-12-11 Alfonso Mulligan Un iversity of 14:57:00 [facility] D-DIMER 2022-12-11 Alfonso Mulligan [place] of 14:15:00 [facility] XR CHEST 1 VW 2022-12-11 Alfonso Mulligan [place] of 14:10:26 [facility] TROPONIN I 2022-12-11 Alfonso Mulligan [place] of 14:02:00 [facility] CBC WITH DIFF 2022-12-11 Alfonso Mulligan [place] of 14:02:00 [facility] N-TERMINAL PRO-BNP 2022-12-11 Alfonso Mulligan [facility] 14:02:00 [facility] HB ECG ROUTINE & RHYTHM STRIP 2022-12-11 Alfonso Mulligan Un iversity of 14:01:08 [facility] CONSENT/REFUSAL FOR DIAGNOSIS 2022-12-11 Doctor Unassigned, University of AND TREATMENT 13:52:01 [place] [facility] ECG 12-LEAD 2022-08-03 Unknown, Hl7 Doctor [facility] 05:03:32 [facility] ECG 12-LEAD 2022-08-03 Unknown, Hl7 Doctor [facility] 05:03:32 [facility] ECG 12-LEAD 2022-08-03 Unknown, Hl7 Doctor [facility] 05:03:32 [facility] LIPID PANEL 2022-08-[address] [facility] 21:14:00 [facility] TSH/FREE T4 IF INDICATED 2022-08-02 Donaldo Hightower [facility] 21:14:00 [facility] VITAMIN B12 2022-08-02 Donaldo Hightower [facility] 21:14:00 [facility] HEMOGLOBIN A1C 2022-08-02 Donaldo Hightower [facility] 21:14:00 [facility] COMPREHENSIVE METABOLIC PANEL 2022-08-02 [facility] 21:14:00 [facility] CBC W/PLT COUNT & AUTO 2022-08-02 Donaldo Hightower [facility] DIFFERENTIAL 21:14:00 [facility] RPR 2022-08-[address] [facility] 21:14:00 [facility] HC LAB HIV-1 AG W/HIV-1&2 AB 2022-08-[address] [facility] 21:14:00 [facility] C-REACTIVE PROTEIN 2022-08-[address] [facility] 21:14:00 [facility] CBC W/PLT COUNT & AUTO 2022-08-02 Donaldo Hightower [facility] DIFFERENTIAL 21:14:00 [facility] EKG-SCANNED 2022-08-02 Eliceo Montanez CHI 00:00:00 Scanning [facility] CT HEAD WO CONTRAST 2022-08-01 Lloyd [facility] o f 23:52:15 [facility] GALV ONLY - INFLUENZA A B RSV 2022-08-01 Letitia Chambers Un iversity of PCR 18:28:00 [facility] TRANSTHORACIC ECHO (TTE) 2022-08-01 [facility] COMPLETE W/ CONTRAST 14:42:00 [facility] al Branch MAGNESIUM 2022-08-01 Lorenza Her [place] of 10:42:00 [facility] BASIC METABOLIC PANEL (NA, K, 2022-08-01 Lorenza Her Un iversity of CL, CO2, GLUCOSE, BUN, 10:42:00 [place] [facility] ical CREATININE[place]) Branch CBC WITH DIFF 2022-08-01 Lorenza Her [place] [facility] 10:42:00 [facility] N-TERMINAL PRO-BNP 2022-08-01 Tc [facility] of 10:42:00 [facility] POCT GLUCOSE (AUTOMATED) 2022-08-01 LloydLorenza [facility] ity of 06:56:00 [facility] CRITICAL CARE 2022-07-31 Sav Rondon [place] of 22:31:36 [facility] URINALYSIS 2022-07-31 Sav Rondon [place] of 20:52:00 [facility] URINE DRUG (IMMUNOASSAY) - 2022-07-31 [facility] COMPREHENSIVE DRUG SCREEN W/O 20:52:[address] [facility] REFLEX Branch XR CHEST 1 VW 2022-07-31 Sav Rondon of 18:45:17 [facility] LIPASE 2022-07-31 Sav Rondon of 17:58:00 [facility] TROPONIN I 2022-07-31 Sav Rondon [place] of 17:58:00 [facility] COMP. METABOLIC PANEL ([id number]) 2022-07-31 Sav Rondon iversity of 17:58:00 [facility] CBC WITH DIFF 2022-07-31 Sav Rondon [place] of 17:58:00 [facility] PROTHROMBIN TIME / INR 2022-07-31 [facility] 17:58:00 [facility] ACTIVATED PARTIAL THRMPLAS 2022-07-31 [facility] of DAVID 17:58:00 [facility] N-TERMINAL PRO-BNP 2022-07-31 Sav Rondon [place] of 17:58:00 [facility] HB ECG ROUTINE & RHYTHM STRIP 2022-07-31 Sav Rondon iversity of 17:46:28 [facility] NOTICE OF PRIVACY PRACTICES 2022-07-31 Doctor Unassigned, U niversity of 17:35:38 [place] [facility] CONSENT/REFUSAL FOR DIAGNOSIS 2022-07-31 Doctor Unassigned, University of AND TREATMENT 17:35:13 [place] [facility] PHOSPHORUS 2022-05-08 Azeem Meehan [place] of 05:51:00 [facility] MAGNESIUM 2022-05-08 Shefali [facility] of 05:51:00 [facility] BASIC METABOLIC PANEL (NA, K, 2022-05-08 Shefali [facility] niversity of CL, CO2, GLUCOSE, BUN, 05:51:00 [place] [facility] [facility] CREATININE[place]) Branch CBC WITH DIFF 2022-05-08 Shefali [facility] of 05:51:00 [facility] BASIC METABOLIC PANEL (NA, K, 2022-05-07 Cintron [facility] of CL, CO2, GLUCOSE, BUN, 07:09:00 Shailesh [facility] ica CREATININE, [place]) Branch CBC WITH DIFF 2022-05-07 [place] [facility] of 07:09:00 [facility] POCT GLUCOSE (AUTOMATED) 2022-05-07 Brandyn Mcfarlane [facility] ity of 01:16:00 [facility] HB ABO GROUPING 2022-05-06 Shaun Gnosticist [place] of 05:07:00 Nancy [facility] BASIC METABOLIC PANEL (NA, K, 2022-05-06 Shefali Azeem U niversity of CL, CO2, GLUCOSE, BUN, 05:04:00 [place] [facility] [facility] CREATININE[place]) Branch CBC WITH DIFF 2022-05-06 Shefali [facility] of 05:04:00 [facility] KEPPRA (LEVETIRACETAM) 2022-05-06 Shefali Azeem [facility] ty of 05:04:00 [facility] MR LUMBAR SPINE WO CONTRAST 2022-05-06 Kneedler, Ender U niversity of 02:54:37 Christopher [facility] ELECTROENCEPHALOGRAM 2022-05-06 CintronJohn [facility] ty of 00:00:00 Shailesh [facility] BASIC METABOLIC PANEL (NA, K, 2022-05-05 Lexie Dunn [facility] of CL, CO2, GLUCOSE, BUN, 07:57:00 [facility] ical CREATININE, [place]) Branch CBC WITH DIFF 2022-05-05 [facility] of 07:57:00 [facility] PROTHROMBIN TIME / INR 2022-05-05 [facility] ersity of 07:57:00 [facility] ACTIVATED PARTIAL THRMPLAS 2022-05-05 [facility] of DAVID 07:57:00 [facility] FIBRINOGEN 2022-05-05 [facility] of 07:57:00 [facility] EMERGENCY SERVICES AGREEMENTS 2022-05-04 Doctor Unassigned, University of AND AUTHORIZATIONS 05:01:00 [place] [facility] VITAMIN D, 25-OH 2022-04-15 [place] of 16:53:00 [facility] MR THORACIC SPINE WO CONTRAST 2022-04-15 Soumya Chua Un iversity of 11:56:19 [facility] MR CERVICAL SPINE WO CONTRAST 2022-04-15 John Chuaena Un iversity of 11:20:00 [facility] BASIC METABOLIC PANEL (NA, K, 2022-04-15 Charmaine Morataya Un iversity of CL, CO2, GLUCOSE, BUN, 10:36:00 [facility] ical CREATININE, [place]) Branch TEST, URINE 2022-04-15 [facility] of 04:39:00 [facility] URINE DRUG (IMMUNOASSAY) - 2022-04-15 [facility] COMPREHENSIVE DRUG SCREEN 04:39:00 [facility] URINALYSIS 2022-04-15 [facility] of 04:39:00 [facility] TRANSTHORACIC ECHO (TTE) 2022-04-14 [facility] ity of COMPLETE W/ CONTRAST 16:37:03 [facility] KEPPRA (LEVETIRACETAM) 2022-04-14 Harshil [facility] y of 15:30:00 [facility] MAGNESIUM 2022-04-14 Harshil [facility] of 10:03:00 [facility] BASIC METABOLIC PANEL (NA, K, 2022-04-14 John Chuaena Un iversity of CL, CO2, GLUCOSE, BUN, 10:03:00 [place] [facility] CREATININE[place]) Branch MR LUMBAR SPINE WO CONTRAST 2022-04-14 Harshil [facility] ersity of 02:48:12 [facility] MR STROKE BRAIN WO CONTRAST 2022-04-14 Harshil [facility] ersity of 02:29:[address] [facility] [address] STROKE ANGIOGRAM HEAD 2022-04-13 Sapna Vargas [facility] ersity of 18:40:[address] [facility] [address] STROKE ANGIOGRAM NECK 2022-04-13 Sapna Vargas [facility] ersity of 18:40:[address] [facility] [address] STROKE HEAD WO CONTRAST 2022-04-13 Sapna Vargas iversity of 18:36:00 [facility] TROPONIN I 2022-04-13 Sapna Vargas [place] of 18:17:00 [facility] THYROID STIMULATING HORMONE 2022-04-13 Harshil [facility] ersity of 18:17:00 [facility] BASIC METABOLIC PANEL (NA, K, 2022-04-13 Sapna Vargas [place] of CL, CO2, GLUCOSE, BUN, 18:17:00 [place] [facility] CREATININE[place]) Branch LIPID PANEL ([id number])(TOTAL 2022-04-13 [facility] sity of CHOLESTEROL, TRIGLYCERIDES, 18:17:00 [facility]) Branch CBC WITHOUT DIFF 2022-04-13 Sapna Vargas [place] [facility] f 18:17:00 [facility] GLYCOSYLATED HEMOGLOBIN (A1C) 2022-04-13 Soumya Chua iversity of 18:17:00 [facility] PROTHROMBIN TIME / INR 2022-04-13 Sapna Vargas [facility] sity of 18:17:00 [facility] ACTIVATED PARTIAL THRMPLAS 2022-04-13 Sapna Vargas iversity of DAVID 18:17:00 [facility] COVID-19 (ID NOW RAPID 2022-04-13 Sapna Vargas [facility] sity of TESTING) 18:17:00 [facility] LAB ONLY COVID INTERPRETATION 2022-04-13 Sapna Vargas [place] of 18:17:00 [facility] HB ECG ROUTINE & RHYTHM STRIP 2022-04-13 Sapna Vargas [place] of 18:15:49 [facility] CONSENT/REFUSAL FOR DIAGNOSIS 2022-04-13 Doctor Unassigned, [place] of AND TREATMENT 18:05:14 [place] [facility] HOSPITAL ADMISSION 2022-04-13 Doctor Unassigned, University of 05:01:00 [place] [facility] SARS-COV-2 COVID-19 VACCINE 2022-02-19 Doctor Unassigned, U niversity of 12 YRS+,0.3ML,IM (PFIZER - 15:21:12 [place] [facility] URINE DRUG (IMMUNOASSAY) - 2021-11-23 [facility] COMPREHENSIVE DRUG SCREEN W/O 21:21[place]00 [place] [facility] HEAD WO CONTRAST 2021-11-23 [facility] of 20:58:00 [facility] POCT TEST 2021-11-23 [facility] 20:46:00 [facility] URINALYSIS 2021-11-23 [facility] o f 20:43:00 [facility] LIPASE 2021-11-23 [facility] o f 20:27:00 [facility] TROPONIN I 2021-11-23 [facility] o f 20:27:00 [facility] COMP. METABOLIC PANEL ([id number]) 2021-11-23 [facility] of 20:27:00 [facility] CBC WITH DIFF 2021-11-23 [facility] o f 20:27:00 [facility] POCT GLUCOSE (AUTOMATED) 2021-11-23 Doctor Unassigned, Univ ersity of 20:15:00 [place] [facility] SARS-COV-2 COVID-19 2021-05-24 Doctor Unassigned, Universit y of VACCINE,0.3ML,IM (PFIZER) 14:23:12 [place] [facility] SARS-COV-2 COVID-19 2021-05-03 Doctor Unassigned, Universit y of VACCINE,0.3ML,IM (PFIZER) 14:59:29 [place] [facility] EMERGENCY SERVICES AGREEMENTS 2021-04-16 Doctor Unassigned, [place] AND AUTHORIZATIONS 05:01:00 [place] [facility] [facility]IS 2021-03-17 [facility] XR CHEST 1 VW 2021-03-17 [facility] of 01:45:07 [facility] TROPONIN I 2021-03-17 [facility] of 01:35:00 [facility] COMP. METABOLIC PANEL ([id number]) 2021-03-17 Fabrice Chakraborty [facility] of 01:35:00 [facility] CBC WITH DIFF 2021-03-17 [facility] of 01:35:00 [facility] N-TERMINAL PRO-BNP 2021-03-17 [place] of 01:35:00 [facility] COVID-19 (ID NOW RAPID 2021-03-17 Brian Ray [facility] y of TESTING) 00:58:00 [facility] CONSENT/REFUSAL FOR DIAGNOSIS 2021-03-17 [facility] 00:32:59 [place] COVID-19 (ID NOW RAPID 2021-02-19 Anali Patel [facility] y of TESTING) 17:04:[address] [facility] [address] ABDOMEN PELVIS W CONTRAST 2021-02-19 Anali Patel [facility] of 16:41:18 [facility] LIPASE 2021-02-19 Anali Patel [place] of 15:58:00 [facility] COMP. METABOLIC PANEL ([id number]) 2021-02-19 Anali Patel [facility] of 15:58:00 [facility] CBC WITH DIFF 2021-02-19 Anali Patel [place] of 15:58:00 [facility] URINALYSIS 2021-02-19 Anali Patel [place] of 15:58:00 [facility] NOTICE OF PRIVACY PRACTICES 2021-02-19 Doctor Unassjulee, [facility] of 15:30:46 [place] CONSENT/REFUSAL FOR DIAGNOSIS 2021-02-19 [facility] 15:30:30 [facility] Plan of Care Planned Activity Planned Date Details Comments Source Future Scheduled 2025-08-02 Lipid panel (procedure) [facility] 00:00:00 [code = 31155642] Medical Ce nter Future Scheduled 2025-08-02 Lipid panel (procedure) [facility] 00:00:00 [code = 55514083] Medical Ce nter Future Scheduled 2025-08-02 Lipid panel (procedure) [facility] 00:00:00 [code = 53965014] Medical Ce nter Future Scheduled 2025-08-02 Lipid panel (procedure) [facility] 00:00:00 [code = 87547387] Medical Ce nter Future Scheduled 2025-08-02 Lipid panel (procedure) [facility] 00:00:00 [code = 95150674] Medical Ce nter Future Scheduled 2025-08-02 Lipid panel (procedure) [facility] 00:00:00 [code = 02992551] Medical Ce nter Future Scheduled 2025-08-02 Lipid panel (procedure) [facility] 00:00:00 [code = 82497865] Medical Ce nter Future Scheduled 2025-08-02 Lipid panel (procedure) [facility] 00:00:00 [code = 12430159] Medical Ce nter Future Scheduled 2025-08-02 Lipid panel (procedure) [facility] 00:00:00 [code = 38717967] Medical Ce nter Future Scheduled 2025-08-02 Lipid panel (procedure) [facility] 00:00:00 [code = 73707132] Medical Ce nter Future Scheduled 2025-08-02 Lipid panel (procedure) [facility] 00:00:00 [code = 60580145] Medical Ce nter Future Scheduled 2025-08-02 Lipid panel (procedure) [facility] 00:00:00 [code = 92944780] Medical Ce nter Future Scheduled 2025-08-02 Lipid panel (procedure) [facility] 00:00:00 [code = 59304305] Medical Ce nter Future Scheduled 2025-08-02 Lipid panel (procedure) [facility] 00:00:00 [code = 10872300] Medical Ce nter Future Scheduled 2023-03-20 Influenza Vaccine (#1) [facility] 00:00:00 [code = Influenza Vaccine [facility] (#1)] Future Scheduled 2023-03-20 INFLUENZA VACCINE [...] (Season Ended)] Future Scheduled 2023-03-20 Influenza Vaccine (#1) [facility] 00:00:00 [code = Influenza Vaccine [facility] (#1)] Future Scheduled 2022-07-[address] [...] cervix Medical C enter (procedure) [code = 381124420] Future Scheduled 1993-01-14 Screening for malignant [facility] 00:00:00 neoplasm of cervix Medical C enter (procedure) [code = 847256603] Future Scheduled 1993-01-14 Screening for malignant [facility] 00:00:00 neoplasm of cervix Medical C enter (procedure) [code = 586716613] Future Scheduled 1993-01-14 Screening for malignant [facility] 00:00:00 neoplasm of cervix Medical C enter (procedure) [code = 419339417] Future Scheduled 1993-01-14 Screening for malignant [facility] 00:00:00 neoplasm of cervix Medical C enter (procedure) [code = 660707036] Future Scheduled 1993-01-14 Screening for malignant [facility] 00:00:00 neoplasm of cervix Medical C enter (procedure) [code = 772142685] Future Scheduled 1993-01-14 Screening for malignant [facility] 00:00:00 neoplasm of cervix Medical C enter (procedure) [code = 304784998] Future Scheduled 1993-01-14 Screening for malignant [facility] 00:00:00 neoplasm of cervix Medical C enter (procedure) [code = 900629408] Future Scheduled 1993-01-14 Screening for malignant [facility] 00:00:00 neoplasm of cervix Medical C enter (procedure) [code = 236923510] Future Scheduled 1993-01-14 Screening for malignant [facility] 00:00:00 neoplasm of cervix Medical C enter (procedure) [code = 388381072] Future Scheduled 1993-01-14 Screening for malignant [facility] 00:00:00 neoplasm of cervix Medical C enter (procedure) [code = 553153464] Future Scheduled 1993-01-14 Screening for malignant [facility] 00:00:00 neoplasm of cervix Medical C enter (procedure) [code = 483035731] Future Scheduled 1993-01-14 Screening for malignant [facility] 00:00:00 neoplasm of cervix Medical C enter (procedure) [code = 371421717] Future Scheduled 1993-01-14 Screening for malignant [facility] 00:00:00 neoplasm of cervix Medical C enter (procedure) [code = 388272381] Future Scheduled 1991-01-14 DTAP/TDAP/TD VACCINES (1 [facility] [...] screening Medical Cent er (procedure) [code = 849233586] Future Scheduled 1987-01-[address] Human [address] [facility] 00:00:00 virus screening Medical Cent er (procedure) [code = 785963980] Future Scheduled [address] [...] breast Medical C enter (procedure) [code = 409739873] Future Scheduled 1972 CT Colonography (combo) [facility] 00:00:00 [code = CT Colonography [facility] (combo)] Future Scheduled 1972 Screening for malignant [facility] 00:00:00 neoplasm of colon Medical Ce nter (procedure) [code = 076015053] Future Scheduled 1972 Screening for malignant [facility] 00:00:00 neoplasm of colon Medical Ce nter (procedure) [code = 116256982] Future Scheduled 1972 Screening for malignant [facility] 00:00:00 neoplasm of colon Medical Ce nter (procedure) [code = 492060090] Future Scheduled 1972 Screening for malignant [facility] 00:00:00 neoplasm of colon Medical Ce nter (procedure) [code = 767121748] Future Scheduled 1972 Sigmoidoscopy [facility]code [facility] Screening for malignant [facility] 00:00:00 neoplasm of breast Medical C enter (procedure) [code = 457572503] Future Scheduled 1972 CT Colonography (combo) [facility] 00:00:00 [code = CT Colonography [facility] (combo)] Future Scheduled 1972 Screening for malignant [facility] 00:00:00 neoplasm of colon Medical Ce nter (procedure) [code = 355901697] Future Scheduled 1972 Screening for malignant [facility] 00:00:00 neoplasm of colon Medical Ce nter (procedure) [code = 548335072] Future Scheduled 1972 Screening for malignant [facility] 00:00:00 neoplasm of colon Medical Ce nter (procedure) [code = 520596905] Future Scheduled 1972 Screening for malignant [facility] 00:00:00 neoplasm of colon Medical Ce nter (procedure) [code = 864024918] Future Scheduled 1972 S[facility]oidoscopy [facility] 1972 Screening for malignant [facility] 00:00:00 neoplasm of breast Medical C enter (procedure) [code = 126413702] Future Scheduled 1972 CT Colonography (combo) [facility] 00:00:00 [code = CT Colonography [facility] (combo)] Future Scheduled 1972 Screening for malignant [facility] 00:00:00 neoplasm of colon Medical Ce nter (procedure) [code = 723226554] Future Scheduled 1972 Screening for malignant [facility] 00:00:00 neoplasm of colon Medical Ce nter (procedure) [code = 403578189] Future Scheduled 1972 Screening for malignant [facility] 00:00:00 neoplasm of colon Medical Ce nter (procedure) [code = 935834273] Future Scheduled 1972 Screening for malignant [facility] 00:00:00 neoplasm of colon Medical Ce nter (procedure) [code = 818940012] Future Scheduled 1972 Sigmoidoscopy [facility]oscopy] Medical Cente r Future Scheduled 1972 Screening for malignant [facility] 00:00:00 neoplasm of breast Medical C enter (procedure) [code = 034152003] Future Scheduled 1972 CT Colonography (combo) [facility] 00:00:00 [code = CT Colonography [facility] (combo)] Future Scheduled 1972 Screening for malignant [facility] 00:00:00 neoplasm of colon Medical Ce nter (procedure) [code = 612424879] Future Scheduled 1972 Screening for malignant [facility] 00:00:00 neoplasm of colon Medical Ce nter (procedure) [code = 541988736] Future Scheduled 1972 Screening for malignant [facility] 00:00:00 neoplasm of colon Medical Ce nter (procedure) [code = 125443568] Future Scheduled 1972 Screening for malignant [facility] 00:00:00 neoplasm of colon Medical Ce nter (procedure) [code = 226512190] Future Scheduled 1972 Sigmoidoscopy [facility]oscopy] Medical Cente r Future Scheduled 1972 Screening for malignant [facility] 00:00:00 neoplasm of breast Medical C enter (procedure) [code = 239310049] Future Scheduled 1972 CT Colonography (combo) [facility] 00:00:00 [code = CT Colonography [facility] (combo)] Future Scheduled 1972 Screening for malignant [facility] 00:00:00 neoplasm of colon Medical Ce nter (procedure) [code = 761295855] Future Scheduled 1972 Screening for malignant [facility] 00:00:00 neoplasm of colon Medical Ce nter (procedure) [code = 010064288] Future Scheduled 1972 Screening for malignant [facility] 00:00:00 neoplasm of colon Medical Ce nter (procedure) [code = 264820947] Future Scheduled 1972 Screening for malignant [facility] 00:00:00 neoplasm of colon Medical Ce nter (procedure) [code = 357157810] Future Scheduled 1972 Sigmoidoscopy [facility]oscopy] Medical Cente r Future Scheduled 1972 Screening for malignant [facility] 00:00:00 neoplasm of breast Medical C enter (procedure) [code = 782367849] Future Scheduled 1972 CT Colonography (combo) [facility] 00:00:00 [code = CT Colonography [facility] (combo)] Future Scheduled 1972 Screening for malignant [facility] 00:00:00 neoplasm of colon Medical Ce nter (procedure) [code = 416473628] Future Scheduled 1972 Screening for malignant [facility] 00:00:00 neoplasm of colon Medical Ce nter (procedure) [code = 925178022] Future Scheduled 1972 Screening for malignant [facility] 00:00:00 neoplasm of colon Medical Ce nter (procedure) [code = 647872945] Future Scheduled 1972 Screening for malignant [facility] 00:00:00 neoplasm of colon Medical Ce nter (procedure) [code = 266097919] Future Scheduled 1972 S[facility]oidoscopy [facility]oscopy] Medical Cente r Future Scheduled 1972 Screening for malignant [facility] 00:00:00 neoplasm of breast Medical C enter (procedure) [code = 131986076] Future Scheduled 1972 CT Colonography (combo) [facility] 00:00:00 [code = CT Colonography [facility] (combo)] Future Scheduled 1972 Screening for malignant [facility] 00:00:00 neoplasm of colon Medical Ce nter (procedure) [code = 477747538] Future Scheduled 1972 Screening for malignant [facility] 00:00:00 neoplasm of colon Medical Ce nter (procedure) [code = 498666361] Future Scheduled 1972 Screening for malignant [facility] 00:00:00 neoplasm of colon Medical Ce nter (procedure) [code = 767796918] Future Scheduled 1972 Screening for malignant [facility] 00:00:00 neoplasm of colon Medical Ce nter (procedure) [code = 859762236] Future Scheduled 1972 Sigmoidoscopy [facility]code [facility]oscopy] Medical Cente r Future Scheduled 1972 Screening for malignant [facility] 00:00:00 neoplasm of breast Medical C enter (procedure) [code = 387485741] Future Scheduled 1972 CT Colonography (combo) [facility] 00:00:00 [code = CT Colonography [facility] (combo)] Future Scheduled 1972 Screening for malignant [facility] 00:00:00 neoplasm of colon Medical Ce nter (procedure) [code = 270652321] Future Scheduled 1972 Screening for malignant [facility] 00:00:00 neoplasm of colon Medical Ce nter (procedure) [code = 306054431] Future Scheduled 1972 Screening for malignant [facility] 00:00:00 neoplasm of colon Medical Ce nter (procedure) [code = 456999487] Future Scheduled 1972 Screening for malignant [facility] 00:00:00 neoplasm of colon Medical Ce nter (procedure) [code = 219606846] Future Scheduled 1972 Sigmoidoscopy [facility]code = [facility] 00:[facility]oscopy] Medical Cente r Future Scheduled 1972 Screening for malignant [facility] 00:00:00 neoplasm of breast Medical C enter (procedure) [code = 738568307] Future Scheduled 1972 CT Colonography (combo) [facility] 00:00:00 [code = CT Colonography [facility] (combo)] Future Scheduled 1972 Screening for malignant [facility] 00:00:00 neoplasm of colon Medical Ce nter (procedure) [code = 093101155] Future Scheduled 1972 Screening for malignant [facility] 00:00:00 neoplasm of colon Medical Ce nter (procedure) [code = 102594736] Future Scheduled 1972 Screening for malignant [facility] 00:00:00 neoplasm of colon Medical Ce nter (procedure) [code = 178104421] Future Scheduled 1972 Screening for malignant [facility] 00:00:00 neoplasm of colon Medical Ce nter (procedure) [code = 454695791] Future Scheduled 1972 Sigmoidoscopy [facility]code [facility]oscopy] Medical Cente r Future Scheduled 1972 Screening for malignant [facility] 00:00:00 neoplasm of breast Medical C enter (procedure) [code = 779648478] Future Scheduled 1972 CT Colonography (combo) [facility] 00:00:00 [code = CT Colonography [facility] (combo)] Future Scheduled 1972 Screening for malignant [facility] 00:00:00 neoplasm of colon Medical Ce nter (procedure) [code = 387586412] Future Scheduled 1972 Screening for malignant [facility] 00:00:00 neoplasm of colon Medical Ce nter (procedure) [code = 818250075] Future Scheduled 1972 Screening for malignant [facility] 00:00:00 neoplasm of colon Medical Ce nter (procedure) [code = 294043604] Future Scheduled 1972 Screening for malignant [facility] 00:00:00 neoplasm of colon Medical Ce nter (procedure) [code = 934174712] Future Scheduled 1972 Sigmoidoscopy [facility]code [facility]oscopy] Medical Cente r Future Scheduled 1972 Screening for malignant [facility] 00:00:00 neoplasm of breast Medical C enter (procedure) [code = 958786060] Future Scheduled 1972 CT Colonography (combo) [facility] 00:00:00 [code = CT Colonography [facility] (combo)] Future Scheduled 1972 Screening for malignant [facility] 00:00:00 neoplasm of colon Medical Ce nter (procedure) [code = 856102995] Future Scheduled 1972 Screening for malignant [facility] 00:00:00 neoplasm of colon Medical Ce nter (procedure) [code = 347748086] Future Scheduled 1972 Screening for malignant [facility] 00:00:00 neoplasm of colon Medical Ce nter (procedure) [code = 409378028] Future Scheduled 1972 Screening for malignant [facility] 00:00:00 neoplasm of colon Medical Ce nter (procedure) [code = 030049541] Future Scheduled 1972 Sigmoidoscopy [facility]code = [facility] 00:[facility] S[facility]oscopy] Medical Cente r Future Scheduled 1972 Screening for malignant [facility] 00:00:00 neoplasm of breast Medical C enter (procedure) [code = 935924724] Future Scheduled 1972 CT Colonography (combo) [facility] 00:00:00 [code = CT Colonography [facility] (combo)] Future Scheduled 1972 Screening for malignant [facility] 00:00:00 neoplasm of colon Medical Ce nter (procedure) [code = 533633911] Future Scheduled 1972 Screening for malignant [facility] 00:00:00 neoplasm of colon Medical Ce nter (procedure) [code = 708428813] Future Scheduled 1972 Screening for malignant [facility] 00:00:00 neoplasm of colon Medical Ce nter (procedure) [code = 674193341] Future Scheduled 1972 Screening for malignant [facility] 00:00:00 neoplasm of colon Medical Ce nter (procedure) [code = 370305755] Future Scheduled 1972 Sigmoidoscopy [code = [facility] 00:[facility]oscopy] Medical Cente r Future Scheduled 1972 Screening for malignant [facility] 00:00:00 neoplasm of breast Medical C enter (procedure) [code = 215701489] Future Scheduled 1972 CT Colonography (combo) [facility] 00:00:00 [code = CT Colonography [facility] (combo)] Future Scheduled 1972 Screening for malignant [facility] 00:00:00 neoplasm of colon Medical Ce nter (procedure) [code = 939143953] Future Scheduled 1972 Screening for malignant [facility] 00:00:00 neoplasm of colon Medical Ce nter (procedure) [code = 865608450] Future Scheduled 1972 Screening for malignant [facility] 00:00:00 neoplasm of colon Medical Ce nter (procedure) [code = 830648788] Future Scheduled 1972 Screening for malignant [facility] 00:00:00 neoplasm of colon Medical Ce nter (procedure) [code = 362460316] Future Scheduled 1972 Sigmoidoscopy [code = [facility] 00:[facility]oscopy] Medical Christine r Future Scheduled 1972 Screening for malignant [facility] 00:00:00 neoplasm of breast Medical C enter (procedure) [code = 732953427] Future Scheduled 1972 CT Colonography (combo) [facility] 00:00:00 [code = CT Colonography [facility] (combo)] Future Scheduled 1972 Screening for malignant [facility] 00:00:00 neoplasm of colon Medical Ce nter (procedure) [code = 197375446] Future Scheduled 1972 Screening for malignant [facility] 00:00:00 neoplasm of colon Medical Ce nter (procedure) [code = 775257495] Future Scheduled 1972 Screening for malignant [facility] 00:00:00 neoplasm of colon Medical Ce nter (procedure) [code = 828787181] Future Scheduled 1972 Screening for malignant [facility] 00:00:00 neoplasm of colon Medical Ce nter (procedure) [code = 524454522] Future Scheduled 1972 Sigmoidoscopy [facility]code [facility]] Medical Cente r Goal Plan of Care Note [code = 67665-9] Goal Plan of Care Note [code = 04786-8] Goal Plan of Care Note [code = 18565-3] Goal Plan of Care Note [code = 28626-1] Goal Plan of Care Note [code = 41705-9] Goal Plan of Care Note [code = 45320-6] Goal Plan of Care Note [code = 48885-3] Goal Plan of Care Note [code = 46237-1] Goal Plan of Care Note [code = 86978-0] Goal Plan of Care Note [code = 19104-3] Goal Plan of Care Note [code = 21115-6] Goal Plan of Care Note [code = 81652-5] Goal Plan of Care Note [code = 10872-7] Goal Plan of Care Note [code = 93351-4] Goal Plan of Care Note [code = 82405-3] Goal Plan of Care Note [code = 46479-3] Goal Plan of Care Note [code = 48722-7] Goal Plan of Care Note [code = 38346-4] Goal Plan of Care Note [code = 46489-3] Goal Plan of Care Note [code = 70566-0] Goal Plan of Care Note [code = 46500-3] Goal Plan of Care Note [code = 97051-2] Goal Plan of Care Note [code = 82821-2] Goal Plan of Care Note [code = 56551-4] Goal Plan of Care Note [code = 71218-6] Goal Plan of Care Note [code = 54394-4] Goal Plan of Care Note [code = 77573-4] Goal Plan of Care Note [code = 11937-9] Goal Plan of Care Note [code = 94192-0] Goal Plan of Care Note [code = 35166-5] Goal Plan of Care Note [code = 01418-1] Goal Plan of Care Note [code = 46272-3] Goal Plan of Care Note [code = 07631-0] Goal Plan of Care Note [code = 88068-2] Goal Plan of Care Note [code = 01789-3] Encounters Start End Encounter Admission Attending Care Care Encounter Source Date/Time Date/Time Type Type Clinicians Facility Department ID 2021-05-20 Emergency [facility] [id number] Univers 18:48:04 [facility] 2021-05-20 Emergency [facility] [id number] Univers 12:43:40 [facility] 2022-12-11 2022-12-11 Emergency X Alfonso MULLIGAN [facility] ERT [id number] Univers 08:56:00 15:29:00 ity of [facility] 2022-12-11 2022-12-11 Emergency Alfonso Mulligan [facility] [id number] Univers 08:56:00 15:29:00 Lorelei MARY [id number] i [place] [id number] [place] [id number] [place] 2022-11-17 2022-11-18 Emergency X BRIANA, [facility] ERT [id number] Univers 17:25:00 01:19:00 RITCHIE itshawn of [facility] 2022-11-17 2022-11-18 Emergency Briana, [facility] [id number] Univers 17:25:00 01:19:00 Ritchie HERNANDEZ 350.1.13.10 ity [facility] [place]7.2.[place] [id number] [facility] [address] 2022-08-28 2022-08-28 Patient Shy Beckman [id number] Univers 00:00:00 00:00:00 Outreach E [place] 350.1.13.10 [place] [id number] [facility] [address] 2022-08-20 2022-08-20 Patient Shy Beckman [id number] Univers 00:00:00 00:00:00 Outreach E [place] 350.1.13.10 [place] [id number] [facility] [address] 2022-08-02 2022-08-03 [facility] Halima Mendoza [facility] [id number] [facility] 17:30:00 14:29:00 [facility]-02 2022-08-03 [facility] Halima Mendoza [facility] [id number] [facility] 17:30:00 14:29:00 Encounter Jen Yepez, [facility] 2022-08-02 2022-08-03 Outpatient ER CORRY, [facility] Neurology [id number] SLE 17:30:00 14:29:00 [facility] 2022-08-03 2022-08-03 Orders [facility] [id number] 00:00:00 00:00:00 Only [facility] 2022-08-03 2022-08-03 Orders [facility] [id number] 00:00:00 00:00:00 Only [facility] 2022-08-02 2022-08-02 Travel [facility] [id number] [facility] 00:00:00 [facility] 2022-08-02 2022-08-02 Travel [facility] [id number] [facility] 00:[facility] 00:00:00 [facility] 2022-07-31 2022-08-01 Inpatient X ARDEN [facility] [id number] Univers 11:42:00 21:48:00 LORENZA najera [facility] 2022-07-31 2022-08-01 [facility] Sav Rondon [facility] 1.2.840.1 [id number] Univers 11:42:00 21:48:00 [facility] 350.1.13.10 ity of [place] 4.2.7.2.686 [facility] [id number] [facility] [address] 2022-08-01 2022-08-01 Transition BLAYNE Nicole 1.2.840.114 [id number] Univers 00:00:00 00:00:00 of Care Maria Teresa W[place]ACE 350.1.13.10 [place] [address] [facility] [id number] [facility] kwame [address] 2022-07-28 2022-07-28 Outpatient SFA BHARAT [id number] Adria 14:41:38 14:41:38 0109 F Mauricio 2022-07-28 2022-07-28 Outpatient [id number] 3d [id number] 00:00:00 00:00:00 Visit [id number] 2022-07-24 2022-07-24 Outpatient [facility] [id number] 023 Adria 13:24:40 13:24:40 0105 F Mauricio 2022-05-23 2022-05-23 Outpatient [facility] [id number] 022 Adria 14:51:01 14:51:01 1104 F Mauricio 2022-05-23 2022-05-23 Outpatient [id number] f9 [id number]-g 00:00:00 00:00:00 Visit m50y-4ei0 [id number]-b -m94b-5t2 [id number] 7850ee 2022-05-04 2022-05-08 Outpatient X CHANTEL MATTHEWS [facility] [id number] Univers 20:22:00 14:44:00 [facility] 2022-05-08 Emergency BrinerBrandyn 1.2.840.1 14 [id number] Univers 20:22:00 14:44:00 [facility]1.13 .[facility]686 [facility] as [id number] [address] 2022-04-13 2022-04-15 Inpatient X [facility] BERNARDINO [id number] Univers 13:06:00 15:00:00 [facility] ity [facility] 2022-04-13 2022-04-15 [facility] Sapna Vargas 1.2.84 0.114 [id number] Univers 13:06:00 15:00:00 Encounter Glory Esteves 350. 1.13.10 [facility] 4.2.7.2.686 [place] [phone] [address] 2022-02-19 2022-02-19 Imm[facility]Inj [facility], [facility] [place] 1.2.840.114 [id number] Univers 10:20:00 10:30:00 Visit Otoniel, Jose LONDON 350.1.13.10 [place] [facility] [place] [facility] [id number] [facility] [address] 2022-02-19 2022-02-19 Outpatient R JOSE FREDERICK [facility] [id number] Univers 10:20:00 10:20:00 ity of [facility] 2021-11-23 2021-11-23 Emergency X AJAYSEMAURICE [facility] ERT [id number] Univers 15:07:00 17:03:00 FOLUSHO ity of [facility] 2021-11-23 2021-11-23 Emergency AlconSav [facility] 1.2.840. 114 [id number] Univers 15:07:00 17:03:00 Nichelle Allison F MARY 350.1.13. 10 ity of [place] 4.2.7.2.686 [facility] [id number] [facility] [address] 2021-11-21 2021-11-21 Outpatient R [facility] [id number] Univers 09:40:00 09:40:00 ity of [facility] 2021-05-24 2021-05-24 Outpatient R JOSE FREDERICK [facility] [id number] Univers 09:30:00 09:30:00 ity of [facility] 2021-05-24 2021-05-24 Imm/Inj Vaccine, [facility] [place] 1.2.840.114 [id number] Univers 08:47:51 08:57:51 Visit Otoniel Jose LONDON 350.1.13.10 [place] [facility] [id number] [address] 2021-05-03 2021-05-03 Outpatient R JOSE FREDERICK [facility] [id number] Univers 09:40:00 09:59:35 ity of [facility] 2021-05-03 2021-05-03 Imm/Inj Vaccine, [facility] [place] 1.2.840.114 [id number] Univers 09:17:43 09:59:35 Visit Jose Frederick 350.1.13.10 [place] [facility] [place]7.2.[place] [facility] [phone] [facility] [address] 2021-04-16 2021-04-16 Orders Doctor EWELINA 1.2.840.114 [id number] Univers 00:00:00 00:00:00 Only Unassigned, HOSEA 350.1.13.10 ity of [place] [facility] 4.2.7.2.686 Javier as [id number] [facility] [address] 2021-03-17 2021-03-17 Telephone EWELINA Nava 1.2.234.378 [id number] Univers 00:00:00 00:00:00 Aneatrice HOSEA 350.1.13.10 ity of [facility] 4.2.7.2.686 Javier as [id number] [facility] [address] 2021-03-16 2021-03-16 Emergency Palmer [facility] 1.2.840.114 [id number] Univers 20:08:00 23:24:00 Fabrice Hernandez 350.1.13.10 i ty of [place]2.[place] [id number] [place] [address] 2021-03-14 2021-03-14 Urgent Lydia Desouza [facility] 1.2.840.114 [id number] Univers 18:59:34 20:19:13 Care Unknown, Attending [facility] 350.1.13.10 ity of [place] 4.2.7.2.686 Javier as Prem?Blea [id number] [place] dam[place] [address] Medical Office Building 2021-03-14 2021-03-14 Outpatient R UNKNOWN, [facility] [id number] Univers 19:00:00 19:00:00 ATTENDING ity of [facility] 2021-02-19 2021-02-19 Emergency Eliana [facility] 1.2.260.559 [id number] Univers 10:49:00 14:48:00 Anali Hernandez 350.1.13.10 i ty of [place] 4[place]2.7.2.[place] [phone] [place] [address] 2019-03-09 2019-03-09 Dick Arcos [facility] 1.2.840.114 [id number] 00:00:00 00:00:00 Yehuda Hernandez 350.1.13.10 [place] 4.2.7.2.686 Professio [id number] nal 2 [facility] 2019-03-09 2019-03-09 Dick Arcos [facility] 1.2.840.114 [id number] [facility] 00:00:00 00:00:00 Yehuda Hernandez 350.1.13.10 ity of [place] 4.2.7.2.686 [place] Professio [phone] T[place] dical [facility] Results Test Description Test Time Test Comments Results Result Comments Source MAGNESIUM 2022-12-11 17:14:06 Test Item Value Reference Range Interpretation Comme nts MAGNESIUM (test code = 1918361571) 1.9 mg/dL 1.7-2.4 Lab Interpretation (test code = 10503-5) [facility] (70467)2022-12-11 15:16:25 Test Item Value Reference Range Interpretation Comments NA (test code = 139 mmol/L 135-145 3107256756) K (test code = 3.5 mmol/L 3.5-5.0 7649582003) CL (test code = 107 mmol/L 98-108 8623155760) CO2 TOTAL (test code = 24 mmol/L 23-31 4490339547) AGAP (test code = 8 2-16 7766846232) BUN (test code = 9 mg/dL 7-23 1145211442) GLUCOSE (test code = 129 mg/dL 70-110 H 7592669052) CREATININE (test code = 0.68 mg/dL 0.50-1.04 9683404355) TOTAL BILI (test code = 0.5 mg/dL 0.1-1.2 1356179774) CALCIUM (test code = 8.9 mg/dL 8.6-10.6 9258355140) T PROTEIN (test code = 6.3 g/dL 6.3-8.2 1953433994) ALBUMIN (test code = 3.8 g/dL 3.5-5.0 4290848177) ALK PHOS (test code = 87 U/L 34-122 0831439970) ALTv (test code = 24 U/L 5-35 1742-6) AST(SGOT) (test code = 21 U/L 13-40 8242139341) eGFR (test code = 91.6 mL/min/1.73m2 9971028454) LYNDSAY (test code = LYNDSAY) Association of [...] tests). Lab Interpretation Abnormal (test code = 95545-9) [facility] [id number] 15:10:45 Test Item Value Reference Range Interpretation Comments TROPONIN I (test code = 0.015 ng/mL <=0.034 7236719974) LYNDSAY (test code = LYNDSAY) Reference (Normal) [...] biotin. Lab Interpretation Normal (test code = 05900-0) [facility] [id number] 15:07:48 Test Item Value Reference Range Interpretation Comments NT-proBNP (test code = 1460 pg/mL <=125 H 1112648576) LYNDSAY (test code = LYNDSAY) Biotin has been reported to cause a negative bias, interpret results relative to patient's use of biotin. Lab Interpretation (test Abnormal code = 56518-7) [facility][id number] 14:45:24 Test Item Value Reference Interpretation Comments Range D-DIMER (test code = 0.99 See_Comment H [Autom ated 7881507740) message] The system which generated this result [...] diagnosis. Lab Interpretation Abnormal (test code = 72471-9) [facility] WITH [id number] 14:14:48 Test Item Value Reference Range Interpretation [...] RDW-SD (test code = 47.8 fL 39.0-49.9 41215-8) RDW-CV (test code = 16.9 % 12.0-15.5 H 788-0) PLT (test code = 507 See_Comment H [Automated 777-3) message] The sy stem which generated this result transmitted reference range : 166 - 358 10*3/ ?L. The reference r zoe was not used to interpret this result as normal/abnormal . MPV (test code = 8.2 fL 9.5-12.9 L 51201-6) NRBC/100 WBC (test 0.0 See_Comment [Automat ed code = 5967323736) message] The system which generated this result transmitted reference range : 0.0 - 10.0 /100 WBCs. The refer ence range was not u sed to interpret th is result as normal/abnormal . NRBC x10^3 (test code See_Comment [Auto mated = 1444897411) message] The s ystem which generated this result transmitted reference range : 10*3/?L. The reference range was not used to interpret this result as normal/abnormal . GRAN MAT (NEUT) % 64.5 % (test code = 770-8) IMM GRAN % (test code 0.30 % = 2847172670) LYMPH % (test code = 25.6 % 736-9) MONO % (test code = 7.5 % 5905-5) EOS % (test code = 1.0 % 713-8) BASO % (test code = 1.1 % 706-2) GRAN MAT x10^3(ANC) 5.07 10*3/uL 1.88-7.09 (test code = 9800979940) IMM GRAN x10^3 (test 0.00-0.06 code = 1743895141) LYMPH x10^3 (test code 2.01 10*3/uL 1.32-3.29 = 731-0) MONO x10^3 (test code 0.59 10*3/uL 0.33-0.92 = 742-7) EOS x10^3 (test code = 0.08 10*3/uL 0.03-0.39 711-2) BASO x10^3 (test code 0.09 10*3/uL 0.01-0.07 H = 704-7) Lab Interpretation Abnormal (test code = 85964-3) [facility] 13:17:22 Test Item Value Reference Range Interpretation Comments RPR SCREEN (Vacation View) (test code = Nonreactive Nonreactive 420) HEMOGLOBIN [id number] 10:39:49 Test Item Value Reference Range Interpretation Comments HEMOGLOBIN A1C 5.8 % See_Comment H [Automated m essage] ELECTROPHORESIS (Vacation View) The system which (test code = 3811) generated this result transmitted ref erence range: <=5.6%. The reference range was not used to int erpret this result as normal/abnormal . "The A1c is measured using a NGSP-certified method. HbA1c value equal to or greater than 6.5% as thediagnosis cutoff for diabetes. An HbA1c value of 5.7- 6.4% indicates increased risk for diabetes (prediabetes)."Sales Administration Manager ID - ADM VITAMIN [id number] 22:48:27 Test Item Value Reference Range Interpretation Comments VITAMIN B12 (WinkcamAKER) (test code = 227 pg/mL 213-867 404) Sales Administration Manager ID - MARCOTSH/FREE T4 IF [id number] 22:08:28 Test Item Value Reference Range Interpretation Comments THYROID STIMULATING HORMONE 3.309 uIU/mL 0.350-4.940 (BEAKER) (test code = 772) Sales Administration Manager ID - JSHIV-1 ANTIGEN WITH HIV-1/2 [id number] 22:08:28 Test Item Value Reference Range Interpretation Comments HIV-1 ANTIGEN WITH HIV 1\\T\\2 Nonreactive Nonreactive ANTIBODY (2) (BEAKER) (test code = 2586) Sales Administration Manager ID - JSC-REACTIVE [id number] 21:49:44 Test Item Value Reference Range Interpretation Comments C-REACTIVE PROTEIN (BEAKER) (test 0.35 mg/dL 0.00-0.50 code = 676) Sales Administration Manager ID - JSCOMPREHENSIVE METABOLIC [id number] 21:49:43 Test Item Value Reference Range Interpretation [...] not appl icable for dialysis patien ts Sales Administration Manager ID - JSLIPID [id number] 21:49:43 Test Item Value Reference Range Interpretation [...] Borderline 130-159 High 160-189 Very High >=190 Sales Administration Manager ID - JSCBC W/PLT COUNT & AUTO [id number] 21:34:03 Test Item Value Reference Range Interpretation [...] Interpretation Comments Height (test code = in 5435017427) Weight (test code = lbs 4511004339) Systolic BP (test code = mmHg 0018242562) Diastolic BP (test code mmHg = 1640853188) Heart Rate (test code = bpm 3428887169) BSA (test code = 2.00 m2 6569839996) Ao root diam (test code 3.20 cm = 7720542421) Aortic root (test code = 3.2 cm 2839533719) Ao root annulus (test 3.2 cm code = 4645255765) LVOT diameter (test code 1.99 cm = 1924808053) LVOT area (test code = 3.10 cm2 6543479160) LVIDD (test code = 5.10 cm 8141959788) Left Ventricular End 123.0 mL Diastolic Volume by Teichholz Method (test code = 7224389) IVS (test code = 1.34 cm 4497044383) Interventricular Septum 1.34 cm Diastolic Thickness by 2D (test code = 1714146) LVPWD (test code = 1.34 cm 5824498537) PW (test code = 1.34 cm 0.6-1.3 6581186670) EF(Teich) (test code = 41.80 % 6996715405) LVIDS (test code = 4.00 cm 5630749932) Left Ventricular End 71.5 mL Systolic Volume by Teichholz Method (test code = 3610726) FS (test code = 21 % 0122475216) EF - 2D (test code = 41.80 % 61682520) LA size (test code = 4.6 cm 4350229958) Pulmonic Regurgitant End 119.4 cm/s Max Velocity (test code = 8004938590) LAV(MOD-sp4) (test code 95.00 mL = 5029118003) E wave decelartion time 0.15 s (test code = 9634881880) MV stenosis pressure 1/2 45.6 ms time (test code = 9944256538) MV Peak A Evette (test code 123.8 cm/s = 7164553788) MV Peak E Evette (test code 109.7 cm/s = 8105938333) E/A ratio (test code = ratio 0306139641) MR max PG (test code = 87.20 mm[Hg] 3757752854) MR max evette (test code = 466.90 cm/s 8222426612) Mr max evette (test code = 466.9 m/s 2517442247) MV Prop V (test code = 51.00 cm/s 1053507490) MV E/e' septal (test 8.1 cm/s code = 8947840204) Tapse (test code = 2.21 cm 4829818789) LVOT stroke volume (test 49.80 cm3 code = 6507239495) LVOT peak evette (test code 89.1 cm/s = 2218045774) LVOT mn grad (test code mmHg = 8732973999) AV LVOT peak gradient mmHg (test code = 8590935720) LVOT peak VTI (test code 16.0 cm = 7675008490) LV V1 mean (test code = 64.30 cm/s 0663528541) Aortic valve mean 133.8 cm/s velocity (test code = 6617787264) Ao peak evette (test code = 175.3 cm/s 9120739386) Ao VTI (test code = 32.2 cm 1941366027) AV area by cont VTI 1.6 cm2 (test code = 3485153738) AV area peak evette (test 1.6 cm2 code = 3196806184) Ao max PG (test code = 12.30 mm[Hg] 6597029745) AV peak gradient (test mmHg code = 0372314614) AV valve area (test code 1.55 cm2 = 7136177689) AV mean gradient (test mmHg code = 0132064482) AV regurgitation 358.5 ms pressure 1/2 time (test code = 2453922910) AI dec slope (test code 364.20 cm/s2 = 8239309146) AI max evette (test code = 445.80 cm/s 6310760487) AI max PG (test code = 79.50 mm[Hg] 4049121801) Radiology Study observation (narrative) (test code = 32064-4) LYNDSAY (test code = LYNDSAY) ?Left?Ventricle: Left [...] Lumason ultrasound enhancing agent used. [facility]2022-08-01 10:43:32 Test Item Value Reference Range Interpretation Comments POCT GLU (test code = 5552369755) 148 mg/dL 70-110 H Lab Interpretation (test code = Abnormal 29919-8) [facility]ACTIV[facility] PARTIAL THRMPLAS [id number] 18:39:45 Test Item Value Reference Range Interpretation Comments APTT Patient (test See_Comment [Automat ed code = 3173-2) message] The system which generated this result transmitted reference range : 23 - 38 Seconds . The reference range was not used to interpr et this result as normal/abnormal . LYNDSAY (test code = LYNDSAY) The [facility] patient population mean normal value for aPTT is 30 seconds. Lab Interpretation Normal (test code = 50245-5) [facility]PROT[facility]OMBIN TIME / [id number] 18:37:42 Test Item Value Reference Range Interpretation [...] tions. Lab Interpretation (test Normal code = 38804-4) [facility]TR[facility]IN [id number] 18:32:01 Test Item Value Reference Interpretation Comments Range TROPONIN I (test 0.019 ng/mL See_Comment [Automated code = 0937223257) message] The system which generated this result [...] biotin. Lab Interpretation Normal (test code = 58672-4) [facility] [id number] 18:29:01 Test Item Value Reference Range Interpretation Comments NT-proBNP (test code 2770 pg/mL See_Comment H [Autom ated = 3438205883) message] The system which generated this result transmitted reference range : <=125. The reference range was not used to interpret this result as normal/abnormal . LYNDSAY (test code = LYNDSAY) Biotin has been reported to cause a negative bias, interpret results relative to patient's use of biotin. Lab Interpretation Abnormal (test code = 41043-3) [facility] (96859)2022-07-31 18:21:42 Test Item Value Reference Range Interpretation Comments NA (test code = 136 mmol/L 135-145 7912084265) K (test code = 4.6 mmol/L 3.5-5.0 5154086229) CL (test code = 104 mmol/L 98-108 5128030991) CO2 TOTAL (test code = 26 mmol/L 23-31 1066998973) AGAP (test code = 2-16 4750883471) BUN (test code = 9 mg/dL 7-23 5371269617) GLUCOSE (test code = 97 mg/dL 70-110 4322718300) CREATININE (test code = 0.64 mg/dL 0.50-1.04 1664834896) TOTAL BILI (test code = 0.5 mg/dL 0.1-1.2 2487197451) CALCIUM (test code = 8.2 mg/dL 8.6-10.6 L 7490028526) T PROTEIN (test code = 6.5 g/dL 6.3-8.2 0583767159) ALBUMIN (test code = 3.9 g/dL 3.5-5.0 4123651475) ALK PHOS (test code = 93 U/L 34-122 6555926162) ALTv (test code = 18 U/L 5-35 2-6) AST(SGOT) (test code = 19 U/L 13-40 3931126228) eGFR (test code = mL/min/1.73m2 5488152331) LYNDSAY (test code = LYNDSAY) Association of [...] tests). Lab Interpretation Abnormal (test code = 37184-0) [facility]2023-[facility]-12 18:21:01 Test Item Value Reference Range Interpretation Comments LIPASE (test code = 8574528153) 54 U/L 0-220 Lab Interpretation (test code = Normal 77997-1) [facility] WITH [id number] 18:07:00 Test Item Value Reference Range Interpretation [...] (test code = 53.1 fL 39.0-49.9 H 04694-7) RDW-CV (test code = 17.0 % 12.0-15.5 H 788-0) PLT (test code = See_Comment H [Automated 777-3) message] The sy stem which generated this result transmitted reference range : 166 - 358 10*3/ ?L. The reference r zoe was not used to interpret this result as normal/abnormal . MPV (test code = 8.2 fL 9.5-12.9 L 07104-6) NRBC/100 WBC (test See_Comment [Automat ed code = 8545166698) message] The system which generated this result transmitted reference range : 0.0 - 10.0 /100 WBCs. The refer ence range was not u sed to interpret th is result as normal/abnormal . NRBC x10^3 (test code See_Comment [Auto mated = 5085358771) message] The s ystem which generated this result transmitted reference range : 10*3/?L. The reference range was not used to interpret this result as normal/abnormal . GRAN MAT (NEUT) % 64.0 % (test code = 770-8) IMM GRAN % (test code 0.40 % = 9713083801) LYMPH % (test code = 27.3 % 736-9) MONO % (test code = 6.5 % 5905-5) EOS % (test code = 1.1 % 713-8) BASO % (test code = 0.7 % 706-2) GRAN MAT x10^3(ANC) 5.46 10*3/uL 1.88-7.09 (test code = 8984076400) IMM GRAN x10^3 (test 0.03 10*3/uL 0.00-0.06 code = 0691563892) LYMPH x10^3 (test code 2.32 10*3/uL 1.32-3.29 = 731-0) MONO x10^3 (test code 0.55 10*3/uL 0.33-0.92 = 742-7) EOS x10^3 (test code = 0.09 10*3/uL 0.03-0.39 711-2) BASO x10^3 (test code 0.06 10*3/uL 0.01-0.07 = 704-7) Lab Interpretation Abnormal (test code = 40004-6) [facility] METABOLIC PANEL (NA, K, CL, CO2, GLUCOSE, BUN, CREATININE, CA)2022-05-08 06:37:01 Test Item Value Reference Range Interpretation Comments NA (test code = 137 mmol/L 135-145 7405730266) K (test code = 3.8 mmol/L 3.5-5 6066658137) CL (test code = 103 mmol/L 98-108 4131772350) CO2 TOTAL (test code = 24 mmol/L 23-31 4198226953) AGAP (test code = 2-16 1783031997) BUN (test code = 13 mg/dL 7-23 5660013234) GLUCOSE (test code = 90 mg/dL 70-110 0125648905) CREATININE (test code = 0.69 mg/dL 0.5-1.04 0045249854) CALCIUM (test code = 8.5 mg/dL 8.6-10.6 L 8365006759) eGFR (test code = mL/min/1.73m2 2534767254) LYNDSAY (test code = LYNDSAY) Association of [...] tests). Lab Interpretation Abnormal (test code = 89625-2) [facility]2022-10-20 06:37:01 Test Item Value Reference Range Interpretation Comments MAGNESIUM (test code = 1483751511) 2.1 mg/dL 1.7-2.4 Lab Interpretation (test code = Normal 11031-1) [facility]PHOSPHORUS2022-10-20 06:37:01 Test Item Value Reference Range Interpretation Comments PHOSPHORUS (test code = 2191472547) 4.7 mg/dL 2.5-5 Lab Interpretation (test code = Normal 49337-4) [facility] WITH [id number] 06:11:54 Test Item Value Reference Range Interpretation [...] (test code = 51.0 fL 39-49.9 H 79780-4) RDW-CV (test code = 16.5 % 12-15.5 H 788-0) PLT (test code = See_Comment H [Automated 777-3) message] The sy stem which generated this result transmitted reference range : 166 - 358 10*3/ ?L. The reference r zoe was not used to interpret this result as normal/abnormal . MPV (test code = 8.3 fL 9.5-12.9 L 19667-4) NRBC/100 WBC (test See_Comment [Automat ed code = 3632621947) message] The system which generated this result transmitted reference range : 0.0 - 10.0 /100 WBCs. The refer ence range was not u sed to interpret th is result as normal/abnormal . NRBC x10^3 (test code See_Comment [Auto mated = 3978771002) message] The s ystem which generated this result transmitted reference range : 10*3/?L. The reference range was not used to interpret this result as normal/abnormal . GRAN MAT (NEUT) % 64.5 % (test code = 770-8) IMM GRAN % (test code 0.50 % = 3789772243) LYMPH % (test code = 27.1 % 736-9) MONO % (test code = 6.6 % 5905-5) EOS % (test code = 0.6 % 713-8) BASO % (test code = 0.7 % 706-2) GRAN MAT x10^3(ANC) 5.28 10*3/uL 1.88-7.09 (test code = 9284052739) IMM GRAN x10^3 (test 0.04 10*3/uL 0-0.06 code = 0717084940) LYMPH x10^3 (test code 2.22 10*3/uL 1.32-3.29 = 731-0) MONO x10^3 (test code 0.54 10*3/uL 0.33-0.92 = 742-7) EOS x10^3 (test code = 0.05 10*3/uL 0.03-0.39 711-2) BASO x10^3 (test code 0.06 10*3/uL 0.01-0.07 = 704-7) Lab Interpretation Abnormal (test code = 61090-8) [facility]2022-05-07 01:18:10 Test Item Value Reference Range Interpretation Comments POCT GLU (test code = 7099391630) 120 mg/dL 70-110 H Lab Interpretation (test code = Abnormal 28331-3) [facility] HospitalType and Screen - ONCE [id number] 05:46:35 Test Item Value Reference Range Interpretation Comments ABO & RH (test code O POSITIVE Performe d at [facility] = 20) Laboratory Serv [facility] Blood [facility] [place] [address] s [address]Aavm Free: [phone] A No. [id number] IAT (test code = Negative Performed a t [facility] 1185) Laboratory Serv [facility] Blood [address] [place] [address]Krfl Free: [phone] A No. [id number] [facility] METABOLIC PANEL (NA, K, CL, CO2, GLUCOSE, BUN, CREATININE, CA)2022-05-05 08:22:57 Test Item Value Reference Range Interpretation Comments NA (test code = 136 mmol/L 135-145 3278937110) K (test code = 4.9 mmol/L 3.5-5 7146039455) CL (test code = 108 mmol/L 98-108 0903939047) CO2 TOTAL (test code = 22 mmol/L 23-31 L 9838246251) AGAP (test code = 2-16 3304327628) BUN (test code = 12 mg/dL 7-23 0928798595) GLUCOSE (test code = 155 mg/dL 70-110 H 4690689096) CREATININE (test code = 0.63 mg/dL 0.5-1.04 7793450314) CALCIUM (test code = 8.4 mg/dL 8.6-10.6 L 1421371574) eGFR (test code = mL/min/1.73m2 2929065557) LYNDSAY (test code = LYNDSAY) Association of [...] tests). Lab Interpretation Abnormal (test code = 73761-4) [id number] 08:22:37 Test Item Value Reference Range Interpretation Comments PROTIME PATIENT (test See_Comment [Auto mated message] code = 5964-2) The system [employer] generated this result transmitted ref erence range: 10.1 - 1 2.6 Seconds. The re ference range was not u sed to interpret this result as normal/abnor mal. INR (test code = 6301-6) Nor mal INR <1.1; Warfarin Therap eutic range 2.0 to 3. 0 or 2.5 to 3.5, dep ending upon the indica tions. Lab Interpretation (test Normal code = 94094-9) [facility] Test Item Value Reference Range Interpretation Comments APTT Patient (test code = See_Comment [ Automated message] 3173-2) The system [employer] h generated this result transmitted ref erence range: 26 - 36 Seconds. The re ference range was not u sed to interpret this result as normal/abnor mal. Lab Interpretation (test Normal code = 74220-8) [facility]:37 Test Item Value Reference Range Interpretation Comments Fibrinogen (test code = 7454186328) 294 mg/dL 167-453 Lab Interpretation (test code = Normal 97209-6) [facility] [id number] 08:15:01 Test Item Value Reference Range Interpretation Comments WBC (test code = See_Comment [Automated 4786-2) message] The sy stem which generated this result transmitted reference range : 4.30 - 11.10 10*3/?L. The reference range was not used to interpret this result as normal/abnormal . RBC (test code = See_Comment [Automated 669-8) message] The sy stem which generated this [...] (test code = 52.9 fL 39-49.9 H 17640-0) RDW-CV (test code = 16.8 % 12-15.5 H 788-0) PLT (test code = See_Comment H [Automated 777-3) message] The sy stem which generated this result transmitted reference range : 166 - 358 10*3/ ?L. The reference r zoe was not used to interpret this result as normal/abnormal . MPV (test code = 8.3 fL 9.5-12.9 L 15879-9) NRBC/100 WBC (test See_Comment [Automat ed code = 3692377282) message] The system which generated this result transmitted reference range : 0.0 - 10.0 /100 WBCs. The refer ence range was not u sed to interpret th is result as normal/abnormal . NRBC x10^3 (test code See_Comment [Auto mated = 9889183075) message] The s ystem which generated this result transmitted reference range : 10*3/?L. The reference range was not used to interpret this result as normal/abnormal . GRAN MAT (NEUT) % 86.4 % (test code = 770-8) IMM GRAN % (test code 0.40 % = 7898706889) LYMPH % (test code = 11.7 % 736-9) MONO % (test code = 1.1 % 5905-5) EOS % (test code = 0.0 % 713-8) BASO % (test code = 0.4 % 706-2) GRAN MAT x10^3(ANC) 6.36 10*3/uL 1.88-7.09 (test code = 1249991227) IMM GRAN x10^3 (test 0.03 10*3/uL 0-0.06 code = 2470349445) LYMPH x10^3 (test code 0.86 10*3/uL 1.32-3.29 L = 731-0) MONO x10^3 (test code 0.08 10*3/uL 0.33-0.92 L = 742-7) EOS x10^3 (test code = 0.03-0.39 L 711-2) BASO x10^3 (test code 0.03 10*3/uL 0.01-0.07 = 704-7) Lab Interpretation Abnormal (test code = 85571-4) [id number] 20:14:03 Test Item Value Reference Range Interpretation Comments VIT D 25OH (test code = 22 ng/mL 25-80 L 43910-6) LYNDSAY (test code = LYNDSAY) Deficiency: <20 ng/mLInsufficiency: 20-24 ng/mLOptimal: 25-80 ng/mL Lab Interpretation (test Abnormal code = 53170-8) [facility] (NA, K, CL, CO2, GLUCOSE, BUN, CREATININE, CA)2022-04-15 11:27:57 Test Item Value Reference Range Interpretation Comments NA (test code = 138 mmol/L 135-145 3569911429) K (test code = 3.9 mmol/L 3.5-5 5226687484) CL (test code = 106 mmol/L 98-108 2118945346) CO2 TOTAL (test code = 23 mmol/L 23-31 2447318272) AGAP (test code = 2-16 4525350439) BUN (test code = 10 mg/dL 7-23 9419819879) GLUCOSE (test code = 91 mg/dL 70-110 7585427353) CREATININE (test code = 0.65 mg/dL 0.5-1.04 6293785073) CALCIUM (test code = 8.1 mg/dL 8.6-10.6 L 3796778749) eGFR (test code = mL/min/1.73m2 9684590705) LYNDSAY (test code = LYNDSAY) Association of [...] tests). Lab Interpretation Abnormal (test code = 10379-7) [facility] - Transthoracic echo (TTE) 2022-04-14 22:07:33 Test Item Value Reference Range Interpretation Comments Height (test code = in 0545843964) Weight (test code = lbs 3746604634) Systolic BP (test code = mmHg 4499363028) Diastolic BP (test code mmHg = 8214764406) Heart Rate (test code = bpm 3118892576) BSA (test code = 1.94 m2 5512706554) TASV (test code = 15.5 cm/s 0766576200) LVIDD (test code = 6.00 cm 1919652710) Left Ventricular End 183.0 mL Diastolic Volume by Teichholz Method (test code = 0580705) IVS (test code = 1.09 cm 9045087832) Interventricular Septum 1.09 cm Diastolic Thickness by 2D (test code = 9801080) LVPWD (test code = 0.94 cm 1006964771) PW (test code = 0.94 cm 0.6-1.0 6144750427) EF(Teich) (test code = 40.30 % 9727700358) LVIDS (test code = 4.80 cm 6876886515) Left Ventricular End 109.2 mL Systolic Volume by Teichholz Method (test code = 0388704) FS (test code = 20 % 8225307180) EF - 2D (test code = 40.30 % 66864440) LVOT diameter (test code 2.05 cm = 7472305252) LVOT area (test code = 3.30 cm2 5459191673) Ao root diam (test code 3.10 cm = 6188356085) Aortic root (test code = 3.1 cm 3779591216) Ao root annulus (test 3.1 cm code = 4003825985) LA size (test code = 4.2 cm 4662229907) LAV(MOD-sp4) (test code 64.90 mL = 8756881284) MV Peak A Evette (test code 115.7 cm/s = 4246954763) E wave decelartion time 0.15 s (test code = 8285359168) MV Peak E Evette (test code 106.2 cm/s = 6508739250) E/A ratio (test code = ratio 9180631495) LVOT stroke volume (test 48.30 cm3 code = 6715527357) LVOT peak evette (test code 78.4 cm/s = 5712597600) LVOT mn grad (test code mmHg = 1905131672) AV LVOT peak gradient mmHg (test code = 2523978498) LVOT peak VTI (test code 14.7 cm = 4341517112) LV V1 mean (test code = 51.40 cm/s 9972973408) Ao peak evette (test code = 154.7 cm/s 9934204433) AV area peak evette (test 1.7 cm2 code = 3706437614) Ao max PG (test code = 9.60 mm[Hg] 5444789375) AV peak gradient (test mmHg code = 4519621257) AV regurgitation 257.3 ms pressure 1/2 time (test code = 3147167858) AI dec slope (test code 498.10 cm/s2 = 1992808590) AI max evette (test code = 437.60 cm/s 5843071235) AI max PG (test code = 77.80 mm[Hg] 8717363259) Tapse (test code = 2.19 cm 3883741537) LA Volume Index (BP) 32.0 mL/m2 (test code = 6557108720) LA volume (BP) (test 62.1 mL code = 5491243315) LAV(MOD-sp2) (test code 52.70 mL = 1825261052) A4C EF (test code = 44.80 % 6831658408) EF(sp4-el) (test code = 45.20 % 2090025739) SV(MOD-sp4) (test code = 71.20 mL 0066687453) SV(sp4-el) (test code = 73.90 mL 1588463294) LV Diastolic Volume (BP) 146.3 mL (test code = 1150619043) A2C EF (test code = 52.00 % 9883429856) EF(MOD-bp) (test code = 46.70 % 7309593504) EF(sp2-el) (test code = 52.40 % 8498243018) LV Systolic Volume (BP) 77.9 mL (test code = 0862412471) SV(MOD-bp) (test code = 68.40 mL 9973816897) SV(MOD-sp2) (test code = 69.20 mL 7264045677) EF (test code = 7266349279) Left Ventricular Stroke 68.4 mL Volume by 2-D Biplane-MOD (test code = 9117704) Radiology Study observation (narrative) (test code = 06811-0) LYNDSAY (test code = LYNDSAY) ?Left?Ventricle: Left [...] and saline contrast was performed. [facility] (LEV[facility]AM)2022-04-14 16:48:36 Test Item Value Reference Range Interpretation Comments KEPPRA (test code = 12-46 L 0404099777) LYNDSAY (test code = LYNDSAY) Therapeutic range: 12-46 ?g/mL ? ?Toxic: Not well established.Test developed and characteristics determined by [facility] Laboratory Services. Lab Interpretation Abnormal (test code = 25341-4) [facility] Met[facility] (Na, K, Cl, CO2, Glucose, BUN, Creatinine, Ca)2022-04-14 10:50:11 Test Item Value Reference Range Interpretation Comments NA (test code = 136 mmol/L 135-145 5432052148) K (test code = 3.8 mmol/L 3.5-5 1044978710) CL (test code = 105 mmol/L 98-108 5610879962) CO2 TOTAL (test code = 25 mmol/L 23-31 6790352001) AGAP (test code = 2-16 5853241678) BUN (test code = 9 mg/dL 7-23 2508275368) GLUCOSE (test code = 101 mg/dL 70-110 8678655563) CREATININE (test code = 0.66 mg/dL 0.5-1.04 2108690669) CALCIUM (test code = 8.1 mg/dL 8.6-10.6 L 1319247839) eGFR (test code = mL/min/1.73m2 2404924166) LYNDSAY (test code = LYNDSAY) Association of [...] tests). Lab Interpretation Abnormal (test code = 46462-5) [facility], Lsacp3055-01-09 10:50:11 Test Item Value Reference Range Interpretation Comments MAGNESIUM (test code = 3079338970) 1.9 mg/dL 1.7-2.4 Lab Interpretation (test code = Normal 41099-7) [facility] HospitalThyroid Stimulating Ahiesue1445-35-35 22:21:44 Test Item Value Reference Range Interpretation Comments TSH (test code = See_Comment Biotin has been 5209885883) reported to cau se a negative bias, interpret resul ts relative to pat radha's use of biotin. [Automated mess age] The system Taste Filter generated this result transmitted ref erence range: 0.45 - 4 .70 mIU/L. The refe rence range was not u sed to interpret this result as normal/abnor mal. Lab Interpretation (test Normal code = 46980-5) [facility] HospitalGLYCOSYLATED HEMOGLOBIN (A1C)2022-04-13 21:53:43 Test Item Value Reference Range Interpretation Comments HGB A1C (test code = 5.8 % 4-5.7 H 4548-4) LYNDSAY (test code = LYNDSAY) Reference RangesNormal: <5.7%Prediabetes: 5.7 - 6.4%Diabetes: > 6.5% Lab Interpretation (test Abnormal code = 31359-7) [facility] HospitalFASTING LIPID PANEL (93182)(TOTAL CHOLESTEROL, TRIGLYCERIDES, HDL)2022-04-13 21:34:53 Test Item Value Reference Range Interpretation Comments CHOL (test code = 201 mg/dL 120-200 H 0472878286) HDL (test code = 56 mg/dL See_Comment [Automated message] 8162649048) The system Taste Filter generated this result transmit sherice reference range : >=50. The refer ence range was not u sed to interpret th is result as normal/abnormal . HDLC RATIO (test code = See_Comment [Au tomated message] 0786418402) The system Taste Filter generated this result transmit sherice reference range : <=4.5. The refe rence range was not u sed to interpret th is result as normal/abnormal . TRIG (test code = 355 mg/dL 30-170 H 6704545744) LDL CHOL (test code = 74 mg/dL See_Comment [Auto mated message] 62753-0) The system Taste Filter generated this result transmit sherice reference range : <=160. The refe rence range was not u sed to interpret th is result as normal/abnormal . VLDL (test code = 71 mg/dL 5-60 H 6245705392) Lab Interpretation (test Abnormal code = 06521-9) [facility] HospitalTroponin I - Code Dhissn5240-29-50 18:46:27 Test Item Value Reference Interpretation Comments Range TROPONIN I (test 0.013 ng/mL See_Comment [Automated code = 4877529318) message] The system which generated this result [...] biotin. Lab Interpretation Normal (test code = 38770-4) [facility]Basic Met[facility] (NA, K, CL, CO2, Glucose, BUN, Creatinine, CA) - Code Bimpkc8481-79-53 18:35:07 Test Item Value Reference Range Interpretation Comments NA (test code = 136 mmol/L 135-145 9631604913) K (test code = 4.3 mmol/L 3.5-5 1978887631) CL (test code = 105 mmol/L 98-108 7199088279) CO2 TOTAL (test code = 27 mmol/L 23-31 0611839921) AGAP (test code = 2-16 1666123805) BUN (test code = 8 mg/dL 7-23 7489859601) GLUCOSE (test code = 130 mg/dL 70-110 H 4858366942) CREATININE (test code = 0.75 mg/dL 0.5-1.04 3475438194) CALCIUM (test code = 8.5 mg/dL 8.6-10.6 L 4657552339) eGFR (test code = mL/min/1.73m2 2913608722) LYNDSAY (test code = LYNDSAY) Association of [...] tests). Lab Interpretation Abnormal (test code = 95109-3) [facility] HospitalaPTT - Code Enhvls3126-73-11 18:32:46 Test Item Value Reference Range Interpretation Comments APTT Patient (test See_Comment [Automat ed code = 3173-2) message] The system which generated this result transmitted reference range : 23 - 38 Seconds . The reference range was not used to interpr et this result as normal/abnormal . LYNDSAY (test code = LYNDSAY) The [facility] patient population mean normal value for aPTT is 30 seconds. Lab Interpretation Normal (test code = 57222-9) [facility] HospitalProthrombin Time / INR - Code Actlca0224-01-71 18:30:45 Test Item Value Reference Range Interpretation [...] tions. Lab Interpretation (test Normal code = 83198-6) [facility] without Diff - Code Ichfuc8628-16-31 18:23:07 Test Item Value Reference Range Interpretation Comments WBC (test code = 6690-2) See_Comment [A utomated message] The system Taste Filter generated this result transmit sherice reference range : 4.30 - 11.10 10*3/?L. The reference range was not used to interpret this result as normal/abnormal . RBC (test code = 789-8) See_Comment [Au tomated message] The system Taste Filter generated this result transmit sherice reference range [...] See_Comment H [Au tomated message] The system Taste Filter generated this result transmit sherice reference range : 166 - 358 10*3/?L. The reference range was not used to interpret this result as normal/abnormal . MPV (test code = 8.1 fL 9.5-12.9 L 88608-7) RDW-CV (test code = 16.1 % 12-15.5 H 788-0) RDW-SD (test code = 49.2 fL 39-49.9 29585-6) NRBC x10^3 (test code = See_Comment [Au tomated message] 1741595757) The system whic h generated this result transmit sherice reference range : 10*3/?L. The reference range was not used to interpret this result as normal/abnormal . NRBC/100 WBC (test code See_Comment [Au tomated message] = 4138000716) The system cortical.io ch generated this result transmit sherice reference range : 0.0 - 10.0 /100 WBC s. The reference r zoe was not used to interpret this result as normal/abnormal . IPF % (test code = 8599337509) Lab Interpretation (test Abnormal code = 81668-3) [facility] [id number] 21:06:40 Test Item Value Reference Interpretation Comments Range TROPONIN I (test 0.005 ng/mL See_Comment [Automated code = 2725031383) message] The system which generated this result [...] biotin. Lab Interpretation Normal (test code = 12782-1) [facility]. METABOLIC PANEL (16976)2021-11-23 20:55:42 Test Item Value Reference Range Interpretation Comments NA (test code = 137 mmol/L 135-145 7107579788) K (test code = 4.3 mmol/L 3.5-5.0 5232923423) CL (test code = 104 mmol/L 98-108 5452081474) CO2 TOTAL (test code = 22 mmol/L 23-31 L 1746787177) AGAP (test code = 2-16 8123092353) BUN (test code = 15 mg/dL 7-23 4520014874) GLUCOSE (test code = 114 mg/dL 70-110 H 6779298265) CREATININE (test code = 0.68 mg/dL 0.50-1.04 8917736225) TOTAL BILI (test code = 0.5 mg/dL 0.1-1.3 3188880701) CALCIUM (test code = 9.1 mg/dL 8.6-10.6 4019908244) T PROTEIN (test code = 7.3 g/dL 6.3-8.2 3192946643) ALBUMIN (test code = 4.4 g/dL 3.5-5.0 8315390780) ALK PHOS (test code = 243 U/L 34-122 H 0813822027) ALTv (test code = 24 U/L 5-35 2-6) AST(SGOT) (test code = 30 U/L 13-40 0442540181) eGFR (test code = mL/min/1.73m2 3179338076) LYNDSAY (test code = LYNDSAY) Association of [...] tests). Lab Interpretation Abnormal (test code = 97516-3) [facility] HospitalLIPASE2022-[facility] 20:55:22 Test Item Value Reference Range Interpretation Comments LIPASE (test code = 4862777853) 96 U/L 0-220 Lab Interpretation (test code = Normal 66937-7) [facility] HospitalPOCT [id number] 20:46:00 Test Item Value Reference Range Interpretation Comments POCT PREG (test code = 1605) negative On board controls acceptable with present C Line (test code = 3574) POCT PREG LOT # (test code = 3575) [id number] POCT PREG TEST DATE (test 04/18/2023 code = 3576) Lab Interpretation (test code = Normal 90537-7) [facility] HospitalCBC WITH [id number] 20:40:38 Test Item Value Reference Range Interpretation Comments WBC (test code = See_Comment [Automated 0990-2) message] The sy stem which generated this result transmitted reference range : 4.30 - 11.10 10*3/?L. The reference range was not used to interpret this result as normal/abnormal . RBC (test code = See_Comment [Automated 429-8) message] The sy stem which generated this [...] (test code = 53.7 fL 39.0-49.9 H 65511-4) RDW-CV (test code = 17.2 % 12.0-15.5 H 788-0) PLT (test code = See_Comment H [Automated 177-3) message] The sy stem which generated this result transmitted reference range : 166 - 358 10*3/ ?L. The reference r zoe was not used to interpret this result as normal/abnormal . MPV (test code = 8.5 fL 9.5-12.9 L 08587-6) NRBC/100 WBC (test See_Comment [Automat ed code = 2597453437) message] The system which generated this result transmitted reference range : 0.0 - 10.0 /100 WBCs. The refer ence range was not u sed to interpret th is result as normal/abnormal . NRBC x10^3 (test code <0.01 See_Comment [Auto mated = 5959029631) message] The s ystem which generated this result transmitted reference range : 10*3/?L. The reference range was not used to interpret this result as normal/abnormal . GRAN MAT (NEUT) % 53.7 % (test code = 770-8) IMM GRAN % (test code 0.90 % = 6599649213) LYMPH % (test code = 32.6 % 736-9) MONO % (test code = 10.1 % 5905-5) EOS % (test code = 1.5 % 713-8) BASO % (test code = 1.2 % 706-2) GRAN MAT x10^3(ANC) 4.98 10*3/uL 1.88-7.09 (test code = 1895925573) IMM GRAN x10^3 (test 0.08 10*3/uL 0.00-0.06 H code = 7437660481) LYMPH x10^3 (test code 3.02 10*3/uL 1.32-3.29 = 731-0) MONO x10^3 (test code 0.94 10*3/uL 0.33-0.92 H = 742-7) EOS x10^3 (test code = 0.14 10*3/uL 0.03-0.39 711-2) BASO x10^3 (test code 0.11 10*3/uL 0.01-0.07 H = 704-7) Lab Interpretation Abnormal (test code = 62667-8) [facility] GLUCOSE (AUTOMATED)2021-11-23 20:17:33 Test Item Value Reference Range Interpretation Comments POCT GLU (test code = 111 mg/dL 70-110 H Notifi ed Provider 9558332316) Lab Interpretation (test Abnormal code = 54713-5) [facility] HospitalPAP [facility], THINPREP, [id number] 00:00:00 Test Item Value Reference Range Interpretation Comments SOURCE: (test code = Endocervical 8001) SLIDES: (test code = 1 8011) LMP: (test code = 8021) 06/03/2021 SPECIMEN ADEQUACY: (test (NOTE) code = 90732) INTERPRETATION: (test ASCUS/EPITH. code = 48505) ABNORMALITY; SEE BELOW CUSTOMER ACCOUNT ADMINISTRATOR: (test Anusha code = 8101) CHANA Sepuvleda(ASCP)[facility] PATHOLOGIST Nahid Russell, INTERPRETATION BY: (test M.D. code = 8122) LOCATION: (test code = (NOTE) 56867) CPT: (test code = 8140) (NOTE) PAP TEST, THINPREP, [id number] 00:00:00 Test Item Value Reference Range Interpretation Comments SOURCE: (test code = Endocervical 800) SLIDES: (test code = 1 801) LMP: (test code = 8021) 06/03/2021 SPECIMEN ADEQUACY: (test (NOTE) code = 78195) INTERPRETATION: (test ASCUS/EPITH. code = 64754) ABNORMALITY; SEE BELOW CUSTOMER ACCOUNT ADMINISTRATOR: (test Anusha code = 8101) CHANA Sepulveda(ASCP)[facility] PATHOLOGIST Nahid Russell, INTERPRETATION BY: (test M.D. code = 8122) LOCATION: (test code = (NOTE) 16687) CPT: (test code = 8140) (NOTE) PAP TEST, THINPREP, [id number] 00:00:00 Test Item Value Reference Range Interpretation Comments SOURCE: (test code = Endocervical 8001) SLIDES: (test code = 1 8011) LMP: (test code = 8021) 06/03/2021 SPECIMEN ADEQUACY: (test (NOTE) code = 17886) INTERPRETATION: (test ASCUS/EPITH. code = 03870) ABNORMALITY; SEE BELOW CUSTOMER ACCOUNT ADMINISTRATOR: (test Anusha code = 8101) CHANA Sepulveda(ASCP)[facility] PATHOLOGIST Nahid Russell, INTERPRETATION BY: (test M.D. code = 8122) LOCATION: (test code = (NOTE) 80303) CPT: (test code = 8140) (NOTE) PAP TEST, THINPREP, [id number] 00:00:00 Test Item Value Reference Range Interpretation Comments SOURCE: (test code = Endocervical 8001) SLIDES: (test code = 1 8011) LMP: (test code = 8021) 06/03/2021 SPECIMEN ADEQUACY: (test (NOTE) code = 34036) INTERPRETATION: (test ASCUS/EPITH. code = 45002) ABNORMALITY; SEE BELOW CUSTOMER ACCOUNT ADMINISTRATOR: (test Anusha code = 8101) CHANA Sepulveda(ASCP)[facility] PATHOLOGIST Nahid Russell, INTERPRETATION BY: (test M.D. code = 8122) LOCATION: (test code = (NOTE) 08131) CPT: (test code = 8140) (NOTE) HPV HIGH RISK WITH GENOTYPE, [id number] 00:00:00 Test Item Value Reference Range Interpretation Comments HPV HIGH RISK INTERP (test code = POSITIVE 02331) HPV 16 (test code = 75552) POSITIVE HPV 18 (test code = 93768) NEGATIVE HPV, HR, OTHER GENOTYPES (test code POSITIVE = 14524) HPV HIGH RISK WITH GENOTYPE, [id number] 00:00:00 Test Item Value Reference Range Interpretation Comments HPV HIGH RISK INTERP (test code = POSITIVE 62995) HPV 16 (test code = 65774) POSITIVE HPV 18 (test code = 56498) NEGATIVE HPV, HR, OTHER GENOTYPES (test code POSITIVE = 18796) HPV HIGH RISK WITH GENOTYPE, [id number] 00:00:00 Test Item Value Reference Range Interpretation Comments HPV HIGH RISK INTERP (test code = POSITIVE 86776) HPV 16 (test code = 23365) POSITIVE HPV 18 (test code = 13455) NEGATIVE HPV, HR, OTHER GENOTYPES (test code POSITIVE = 85088) HPV HIGH RISK WITH GENOTYPE, [id number] 00:00:00 Test Item Value Reference Range Interpretation Comments HPV HIGH RISK INTERP (test code = POSITIVE 97327) HPV 16 (test code = 62185) POSITIVE HPV 18 (test code = 44317) NEGATIVE HPV, HR, OTHER GENOTYPES (test code POSITIVE = 03802) [id number] 03:22:48 Test Item Value Reference Range Interpretation Comments APPEARANCE (test code = Hazy Clear A 1685630402) COLOR (test code = Yellow Yellow 6046499921) PH (test code = 4.8-8.0 9716658787) SP GRAVITY (test code = 1.003-1.030 8099804313) GLU U QUAL (test code = Normal Normal 0922177537) BLOOD (test code = Negative Negative Interfere nce from 7979313388) ascorbic acid m ay cause false neg ative results. KETONES (test code = 5 mg/dL Negative A 8369070010) PROTEIN (test code = Negative Negative 2887-8) UROBILIN (test code = 4.0 mg/dL Normal A 4941127648) BILIRUBIN (test code = Negative Negative 3293728362) NITRITE (test code = Negative Negative 5019176040) LEUK GRUPO (test code = Negative Negative 2079573805) RBC/HPF (test code = See_Comment [Autom ated message] 2006646099) The system Taste Filter generated this result transmitted ref erence range: 0 - 3 HP F. The reference range was not used to int erpret this result as normal/abnormal . WBC/HPF (test code = <1 See_Comment [Autom ated message] 5546008860) The system Taste Filter generated this result transmitted ref erence range: 0 - 5 HP F. The reference range was not used to int erpret this result as normal/abnormal . BACTERIA (test code = Few Negative A 1489434601) SQ EPITH (test code = HPF 1205216763) Lab Interpretation Abnormal (test code = 95772-8) [facility] 03:22:48 Test Item Value Reference Range Interpretation Comments APPEARANCE (test code = Hazy Clear A 3428665390) COLOR (test code = Yellow Yellow 6592919746) PH (test code = 4.8-8.0 7663006039) SP GRAVITY (test code = 1.003-1.030 8774088855) GLU U QUAL (test code = Normal Normal 2085149765) BLOOD (test code = Negative Negative 7822104984) KETONES (test code = 5 mg/dL Negative A 6599537817) PROTEIN (test code = Negative Negative 2887-8) UROBILIN (test code = 4.0 mg/dL Normal A 3300582180) BILIRUBIN (test code = Negative Negative 1566827818) NITRITE (test code = Negative Negative 0169488226) LEUK GRUPO (test code = Negative Negative 6482414947) RBC/HPF (test code = See_Comment [Autom ated message] 8972527508) The system Taste Filter generated this result transmit sherice reference range : 0 - 3 HPF. The refe rence range was not u sed to interpret th is result as normal/abnormal . WBC/HPF (test code = <1 See_Comment [Autom ated message] 6893229619) The system Taste Filter generated this result transmit sherice reference range : 0 - 5 HPF. The refe rence range was not u sed to interpret th is result as normal/abnormal . BACTERIA (test code = Few Negative A 0876271218) SQ EPITH (test code = HPF 5401253571) Lab Interpretation (test Abnormal code = 57757-6) [facility] [id number] 02:45:00 Test Item Value Reference Interpretation Comments Range TROPONIN I (test 0.002 ng/mL See_Comment [Automated code = 8992633727) message] The system which generated this result [...] biotin. Lab Interpretation Normal (test code = 26641-2) [facility] [id number] 02:45:00 Test Item Value Reference Range Interpretation Comments TROPONIN I (test code = 0.002 ng/mL See_Comment [Au tomated 7539829498) message] The sy stem which generated this result transmitted reference range : <=0.034. The reference range was not used to interpret this result as normal/abnormal . LYNDSAY (test code = LYNDSAY) Lab Interpretation Normal (test code = 29872-8) [facility]AL [id number] 02:41:57 Test Item Value Reference Range Interpretation Comments NT-proBNP (test code 169 pg/mL See_Comment H [Autom ated = 9753758272) message] The system which generated this result transmitted reference range : <=125. The reference range was not used to interpret this result as normal/abnormal . LYNDSAY (test code = LYNDSAY) Biotin has been reported to cause a negative bias, interpret results relative to patient's use of biotin. Lab Interpretation Abnormal (test code = 09444-7) [id number] 02:41:57 Test Item Value Reference Range Interpretation Comments NT-proBNP (test code = 169 pg/mL See_Comment H [Aut omated message] 6338899959) The system Taste Filter generated this result transmit sherice reference range : <=125. The refe rence range was not u sed to interpret th is result as normal/abnormal . LYNDSAY (test code = LYNDSAY) Lab Interpretation (test Abnormal code = 47898-0) [facility]. METABOLIC PANEL ([id number])2021-03-17 02:09:13 Test Item Value Reference Range Interpretation Comments NA (test code = 137 mmol/L 135-145 0549928231) K (test code = 4.2 mmol/L 3.5-5.0 3510247845) CL (test code = 102 mmol/L 98-108 2832796122) CO2 TOTAL (test code = 25 mmol/L 23-31 3979510925) AGAP (test code = 2-16 0990881018) BUN (test code = 18 mg/dL 7-23 3471091911) GLUCOSE (test code = 144 mg/dL 70-110 H 5980314848) CREATININE (test code = 0.77 mg/dL 0.50-1.04 9281470497) TOTAL BILI (test code = 0.4 mg/dL 0.1-1.3 7710208799) CALCIUM (test code = 8.9 mg/dL 8.6-10.6 9694453983) T PROTEIN (test code = 6.8 g/dL 6.3-8.2 0650155892) ALBUMIN (test code = 3.9 g/dL 3.5-5.0 3657908075) ALK PHOS (test code = 84 U/L 34-122 5548244331) ALTv (test code = 13 U/L 5-35 1742-6) AST(SGOT) (test code = 17 U/L 13-40 3033637834) eGFR (test code = mL/min/1.73m2 7795805258) LYNDSAY (test code = LYNDSAY) Association of [...] tests). Lab Interpretation Abnormal (test code = 69588-4) [facility]. METABOLIC PANEL (22241)2021-03-17 02:09:13 Test Item Value Reference Range Interpretation Comments NA (test code = 5755232566) 137 mmol/L 135-145 K (test code = 7389400895) 4.2 mmol/L 3.5-5.0 CL (test code = 1090569759) 102 mmol/L 98-108 CO2 TOTAL (test code = 8276357490) 25 mmol/L 23-31 AGAP (test code = 3366909131) 2-16 BUN (test code = 8642446436) 18 mg/dL 7-23 GLUCOSE (test code = 4910887747) 144 mg/dL 70-110 H CREATININE (test code = 0.77 mg/dL 0.50-1.04 6342324231) TOTAL BILI (test code = 0.4 mg/dL 0.1-1.7 4026721911) CALCIUM (test code = 1069748844) 8.9 mg/dL 8.6-10.6 T PROTEIN (test code = 4408514857) 6.8 g/dL 6.3-8.2 ALBUMIN (test code = 8758541110) 3.9 g/dL 3.5-5.0 ALK PHOS (test code = 7566179434) 84 U/L 34-122 ALTv (test code = 1742-6) 13 U/L 5-35 AST(SGOT) (test code = 9102919842) 17 U/L 13-40 eGFR (test code = 2355360248) mL/min/1.73m2 LYNDSAY (test code = LYNDSAY) Lab Interpretation (test code = Abnormal 83994-6) [facility] WITH [id number] 01:56:33 Test Item Value Reference Range Interpretation Comments WBC (test code = See_Comment H [Automated 1282-2) message] The sy stem which generated this result transmitted reference range : 4.30 - 11.10 10*3/?L. The reference range was not used to interpret this result as normal/abnormal . RBC (test code = See_Comment [Automated 001-2) message] The sy stem which generated this [...] (test code = 55.5 fL 39.0-49.9 H 80264-3) RDW-CV (test code = 18.9 % 12.0-15.5 H 788-0) PLT (test code = See_Comment H [Automated 777-3) message] The sy stem which generated this result transmitted reference range : 166 - 358 10*3/ ?L. The reference r zoe was not used to interpret this result as normal/abnormal . MPV (test code = 8.2 fL 9.5-12.9 L 70099-8) NRBC/100 WBC (test See_Comment [Automat ed code = 8680027119) message] The system which generated this result transmitted reference range : 0.0 - 10.0 /100 WBCs. The refer ence range was not u sed to interpret th is result as normal/abnormal . NRBC x10^3 (test code <0.01 See_Comment [Auto mated = 1853054342) message] The s ystem which generated this result transmitted reference range : 10*3/?L. The reference range was not used to interpret this result as normal/abnormal . GRAN MAT (NEUT) % 61.7 % (test code = 770-8) IMM GRAN % (test code 0.80 % = 0628226670) LYMPH % (test code = 28.5 % 736-9) MONO % (test code = 6.3 % 5905-5) EOS % (test code = 1.8 % 713-8) BASO % (test code = 0.9 % 706-2) GRAN MAT x10^3(ANC) 7.31 10*3/uL 1.88-7.09 H (test code = 5209951925) IMM GRAN x10^3 (test 0.09 10*3/uL 0.00-0.06 H code = 8800366807) LYMPH x10^3 (test code 3.38 10*3/uL 1.32-3.29 H = 731-0) MONO x10^3 (test code 0.75 10*3/uL 0.33-0.92 = 742-7) EOS x10^3 (test code = 0.21 10*3/uL 0.03-0.39 711-2) BASO x10^3 (test code 0.11 10*3/uL 0.01-0.07 H = 704-7) Lab Interpretation Abnormal (test code = 64062-6) [facility] WITH [id number] 01:56:33 Test Item Value Reference Range Interpretation [...] (test code = 55.5 fL 39.0-49.9 H 88783-6) RDW-CV (test code = 18.9 % 12.0-15.5 H 788-0) PLT (test code = See_Comment H [Automated 777-3) message] The sy stem which generated this result transmitted reference range : 166 - 358 10*3/ ?L. The reference r zoe was not used to interpret this result as normal/abnormal . MPV (test code = 8.2 fL 9.5-12.9 L 69913-2) NRBC/100 WBC (test See_Comment [Automat ed code = 3144811752) message] The system which generated this result transmitted reference range : 0.0 - 10.0 /100 WBCs. The refer ence range was not u sed to interpret th is result as normal/abnormal . NRBC x10^3 (test code <0.01 See_Comment [Auto mated = 0312624608) message] The s ystem which generated this result transmitted reference range : 10*3/?L. The reference range was not used to interpret this result as normal/abnormal . GRAN MAT (NEUT) % 61.7 % (test code = 770-8) IMM GRAN % (test code 0.80 % = 2646014866) LYMPH % (test code = 28.5 % 736-9) MONO % (test code = 6.3 % 5905-5) EOS % (test code = 1.8 % 713-8) BASO % (test code = 0.9 % 706-2) GRAN MAT x10^3(ANC) 7.31 10*3/uL 1.88-7.09 H (test code = 9533578654) IMM GRAN x10^3 (test 0.09 10*3/uL 0.00-0.06 H code = 0849298573) LYMPH x10^3 (test code 3.38 10*3/uL 1.32-3.29 H = 731-0) MONO x10^3 (test code 0.75 10*3/uL 0.33-0.92 = 742-7) EOS x10^3 (test code = 0.21 10*3/uL 0.03-0.39 711-2) BASO x10^3 (test code 0.11 10*3/uL 0.01-0.07 H = 704-7) Lab Interpretation Abnormal (test code = 95077-3) [facility]2021-03-17 01:38:12 Test Item Value Reference Range Interpretation Comments SARS-CoV-2 Rapid ID NOW Not Detected Not Detected (test code = 94941-7) LYNDSAY (test code = LYNDSAY) ID NOW COVID-19 Assay is an isothermal nucleic acid amplification test intended for the qualitative detection of nucleic acid from SARS-CoV-2 viral RNA in nasopharyngeal (UTILITY BAGGER) specimens. It is used under Emergency Use [...] indicated. Lab Interpretation Normal (test code = 36775-8) [facility]2021-03-17 01:38:12 Test Item Value Reference Range Interpretation Comments SARS-CoV-2 Rapid ID NOW (test Not Detected Not Detected code = 26328-8) LYNDSAY (test code = LYNDSAY) Lab Interpretation (test code = Normal 82825-6) [facility]21-[facility]-19 17:42:45 Test Item Value Reference Range Interpretation Comments SARS-CoV-2 Rapid ID NOW Not Detected Not Detected (test code = 85364-4) LYNDSAY (test code = LYNSDAY) ID NOW COVID-19 Assay is an isothermal nucleic acid amplification test intended for the qualitative detection of nucleic acid from SARS-CoV-2 viral RNA in nasopharyngeal (UTILITY BAGGER) specimens. It is used under Emergency Use [...] indicated. Lab Interpretation Normal (test code = 68860-1) [facility] [id number] 17:24:55Thickening of the gastric antrum and duodenal bulb could be fromunderdistention, the differential would include sequela of peptic ulcerdisease. No findings of ulcer perforation. Otherwise, no acute intra- abdominal or pelvic abnormality. Stable thickening and nodularity of the left adrenal gland. RL: 8722 Patient name: HEATHER GUY: 1970 51 years EXAMINATION: CT ABDOMEN [...] - 02/19/2021 12:26 PM CDT Patient name: HEATHER GUY: 1970 51 years EXAMINATION: CT ABDOMEN [...] of the left adrenal gland.RL: 8722 [facility] HfdguvPfqunuixba7432-76-63 17:03:40 Test Item Value Reference Range Interpretation Comments APPEARANCE (test code = Hazy Clear A 8694536247) COLOR (test code = Mabel Yellow A 9280797894) PH (test code = 4.8-8.0 7563436577) SP GRAVITY (test code = 1.003-1.030 H 6714567608) GLU U QUAL (test code = Normal Normal 3200131804) BLOOD (test code = Negative Negative 2120821504) KETONES (test code = 5 mg/dL Negative A 7085646728) PROTEIN (test code = 30 mg/dL Negative A 2887-8) UROBILIN (test code = 4.0 mg/dL Normal A 8442939545) BILIRUBIN (test code = 4 mg/dL Negative A 2838378841) NITRITE (test code = Negative Negative 2720752518) LEUK GRUPO (test code = Negative Negative 4344168798) RBC/HPF (test code = See_Comment H [Autom ated message] 0042303128) The system Taste Filter generated this result transmit sherice reference range : 0 - 3 HPF. The refe rence range was not u sed to interpret th is result as normal/abnormal . WBC/HPF (test code = See_Comment H [Autom ated message] 5529927625) The system Taste Filter generated this result transmit sherice reference range : 0 - 5 HPF. The refe rence range was not u sed to interpret th is result as normal/abnormal . BACTERIA (test code = Few Negative A 0634394510) MUCOUS (test code = Moderate Negative LPF A 6631046877) SQ EPITH (test code = HPF 9341464414) CA OXALATE (test code = See_Comment H [Au tomated message] 2454779400) The system Taste Filter generated this result transmit sherice reference range : <=1 HPF. The refere nce range was not u sed to interpret th is result as normal/abnormal . Ictotest (test code = Negative 0087974447) Lab Interpretation (test Abnormal code = 07881-8) [facility] [id number] 16:34:55 Test Item Value Reference Range Interpretation Comments NA (test code = 139 mmol/L 135-145 5516875931) K (test code = 4.3 mmol/L 3.5-5.0 5739647807) CL (test code = 105 mmol/L 98-108 5332847916) CO2 TOTAL (test code 26 mmol/L 23-31 = 8282705494) AGAP (test code = 2-16 3790226087) BUN (test code = 11 mg/dL 7-23 6609029455) GLUCOSE (test code = 95 mg/dL 70-110 5469810838) CREATININE (test code 0.70 mg/dL 0.50-1.04 = 6316174467) TOTAL BILI (test code 0.6 mg/dL 0.1-1.1 = 6543790098) CALCIUM (test code = 8.9 mg/dL 8.6-10.6 7722544433) T PROTEIN (test code 7.7 g/dL 6.3-8.2 = 6685927013) ALBUMIN (test code = 4.1 g/dL 3.5-5.0 8952553737) ALK PHOS (test code = 79 U/L 34-122 7145185420) ALTv (test code = 10 U/L 5-35 2-6) AST(SGOT) (test code 22 U/L 13-40 = 4137259210) eGFR (test code = mL/min/1.73m2 5125240130) LYNDSAY (test code = LYNDSAY) Association of [...] or abnormalities in imaging tests). [facility] [id number] 16:34:14 Test Item Value Reference Range Interpretation Comments LIPASE (test code = 5017805533) 45 U/L 0-220 Lab Interpretation (test code = Normal 36812-0) [facility] with [id number] 16:21:12 Test Item Value Reference Range Interpretation [...] (test code = 54.4 fL 39.0-49.9 H 03306-0) RDW-CV (test code = 18.3 % 12.0-15.5 H 788-0) PLT (test code = See_Comment H [Automated 777-3) message] The sy stem which generated this result transmitted reference range : 166 - 358 10*3/ ?L. The reference r zoe was not used to interpret this result as normal/abnormal . MPV (test code = 8.5 fL 9.5-12.9 L 32593-2) NRBC/100 WBC (test See_Comment [Automat ed code = 2466226737) message] The system which generated this result transmitted reference range : 0.0 - 10.0 /100 WBCs. The refer ence range was not u sed to interpret th is result as normal/abnormal . NRBC x10^3 (test code <0.01 See_Comment [Auto mated = 5119190862) message] The s ystem which generated this result transmitted reference range : 10*3/?L. The reference range was not used to interpret this result as normal/abnormal . GRAN MAT (NEUT) % 78.3 % (test code = 770-8) IMM GRAN % (test code 0.40 % = 0622656357) LYMPH % (test code = 15.4 % 736-9) MONO % (test code = 4.8 % 5905-5) EOS % (test code = 0.1 % 713-8) BASO % (test code = 1.0 % 706-2) GRAN MAT x10^3(ANC) 7.15 10*3/uL 1.88-7.09 H (test code = 7689388068) IMM GRAN x10^3 (test 0.04 10*3/uL 0.00-0.06 code = 0150280511) LYMPH x10^3 (test code 1.41 10*3/uL 1.32-3.29 = 731-0) MONO x10^3 (test code 0.44 10*3/uL 0.33-0.92 = 742-7) EOS x10^3 (test code = <0.03 0.03-0.39 L 711-2) BASO x10^3 (test code 0.09 10*3/uL 0.01-0.07 H = 704-7) Lab Interpretation Abnormal (test code = 18045-1) [facility]
[2023-02-21] MEDS ORDERED: MORPHINE 4 MG/ML SYR ONE (15:08)
[2023-02-21] MEDS ORDERED: ONDANSETRON 4 MG/2 ML VIAL ONE (15:08)
[2023-02-21] MEDS ORDERED: ONDANSETRON 4 MG (ODT) TAB ONE (15:12)
--- NOTE | 2023-02-21 15:25 | RAD REPORT ---
EXAM DESCRIPTION: RAD - Lumbar Spine 3 Views - 02/21/2023 3:17 pm CLINICAL HISTORY: LOWER BACK PAIN Radiculopathy COMPARISON: <Comparisons> FINDINGS: Diffuse osteopenia is noted. Diffuse disc thinning is seen lower lumbar spine with vacuum disc degeneration. No acute fracture. Aortic atherosclerosis. IMPRESSION: No acute process demonstrated.
[2023-02-21] MEDS ORDERED: LORazepam 2 MG/ML VIAL ONE (15:26)
--- NOTE | 2023-02-21 16:53 | EDPHYS ---
Physician Documentation [facility] Name: Heather Coon Age: 53 yrs Sex: Female : 1970 Arrival Date: 02/21/2023 Time: 14:15 Bed 8 Private MD: ED Physician Abby Spears HPI: 02/21 17:14 This 53 yrs old Female presents to ER via EMS with complaints of Fall Injury, Seizure. cp3 16:06 Patient is a 53-year-old female with a history of anxiety, bipolar, COPD, chronic back cp3 pain, history of seizures that is self treated with marijuana who presents to the ED after a fall from standing last night. The patient endorses acute exacerbation of her chronic back pain along with 2 seizures secondary to pain. The patient endorses that she walks with a walker and has difficulty ambulating secondary to pain.. Historical: - Allergies: 14:19 fluoxetine; aa5 14:19 Green Tea; aa5 14:19 Keppra; not an allergy, pt reports continued seizures while taking medication; aa5 - PMHx: 14:19 Anxiety; Bipolar disorder; Cancer-Cervical; Chronic obstructive lung disease; Chronic aa5 pain; Congestive heart failure; Depression; Diverticulitis; Herniated Back Disc; Hypertension; intestinal mass; Myocardial infarction; pt reports hx of seizures; Spastic Muscles; stroke; 14:24 Arthritis; aa5 - PSHx: 14:19 cervical fusion; Cholecystectomy; foot; Tonsillectomy; aa5 - Immunization history:: Adult Immunizations unknown. - Social history:: Smoking status: Patient reports the use of cigarette tobacco products, smokes one pack cigarettes per day. - Family history:: not pertinent. - History obtained from: EMS, EMS endorses patient with severe acute on chronic back pain. ROS: 16:06 Constitutional: Negative for fever, chills, and weight loss, Eyes: Negative for injury, cp3 pain, redness, and discharge, ENT: Negative for injury, pain, and discharge, Neck: Negative for injury, pain, and swelling, Cardiovascular: Negative for chest pain, palpitations, and edema, Respiratory: Negative for shortness of breath, cough, wheezing, and pleuritic chest pain, Abdomen/GI: Negative for abdominal pain, nausea, vomiting, diarrhea, and constipation, Back: Negative for injury and pain, : Negative for injury, bleeding, discharge, and swelling. 16:06 MS/Extremity: Negative for injury and deformity, Skin: Negative for injury, rash, and discoloration, Neuro: Negative for headache, weakness, numbness, tingling, and seizure, Psych: Negative for depression, anxiety, suicide ideation, homicidal ideation, and hallucinations, Allergy/Immunology: Negative for hives, rash, and allergies, Endocrine: Negative for neck swelling, polydipsia, polyuria, polyphagia, and marked weight changes, Hematologic/Lymphatic: Negative for swollen nodes, abnormal bleeding, and unusual bruising. 16:06 Back: Positive for pain at rest, radiated pain. 16:06 Neuro: Positive for seizure activity. Exam: 16:09 Constitutional: This is a well developed, well nourished patient who is awake, alert, cp3 and in no acute distress. Head/Face: Normocephalic, atraumatic. Eyes: Pupils equal round and reactive to light, extra-ocular motions intact. Lids and lashes normal. Conjunctiva and sclera are non-icteric and not injected. Cornea within normal limits. Periorbital areas with no swelling, redness, or edema. ENT: Nares patent. No nasal discharge, no septal abnormalities noted. Tympanic membranes are normal and external auditory canals are clear. Oropharynx with no redness, swelling, or masses, exudates, or evidence of obstruction, uvula midline. Mucous membranes moist. Neck: Trachea midline, no thyromegaly or masses palpated, and no cervical lymphadenopathy. Supple, full range of motion without nuchal rigidity, or vertebral point tenderness. No Meningismus. Chest/axilla: Normal chest wall appearance and motion. Nontender with no deformity. No lesions are appreciated. Cardiovascular: Regular rate and rhythm with a normal S1 and S2. No gallops, murmurs, or rubs. Normal PMI, no JVD. No pulse deficits. Respiratory: Lungs have equal breath sounds bilaterally, clear to auscultation and percussion. No rales, rhonchi or wheezes noted. No increased work of breathing, no retractions or nasal flaring. Abdomen/GI: Soft, non-tender, with normal bowel sounds. No distension or tympany. No guarding or rebound. No evidence of tenderness throughout. 16:09 Back: Patient with paraspinal lumbar tenderness bilaterally, neurovascular intact, normal strength and sensation. Vital Signs: 14:19 BP 153 / 83; Pulse 99; Resp 19 S; Temp 98.7(O); Pulse Ox 100% on R/A; Weight 95.25 kg aa5 (R); Height 5 ft. 3 in. (R); Pain 10/10; 15:25 BP 134 / 79; Pulse 89; Resp 19 S; Pulse Ox 100% on R/A; aa5 17:30 BP 128 / 75; Pulse 84; Resp 17 S; Temp 98(TE); Pulse Ox 99% on R/A; aa5 14:19 Body Mass Index 37.20 (95.25 kg, 160.02 cm) aa5 14:19 Pain Scale: Adult aa5 MDM: 14:26 Patient medically screened. cp3 16:10 Data reviewed: vital signs, nurses notes. External Records Reviewed: Inpatient record: cp3 Patient with longstanding history of seizures and chronic back pain on record review. Care significantly affected by the following chronic conditions: Chronic Obstructive Pulmonary Disease, Obesity, Chronic back pain. ED course: Patient had a seizure and CT. Ativan given with resolution in seizure activity. Patient endorses that she stopped taking her Keppra and Depakote secondary to side effects and does not want additional medical management.. 02/21 14:38 Order name: Lumbar Spine (3 Views) XRAY; Complete Time: 16:34 cp3 02/21 15:15 Order name: Saline Lock; Complete Time: 15:21 cp3 Administered Medications: 15:22 Drug: LORazepam IM 1 mg Route: IM; Site: right deltoid; iw 15:45 Follow up: Response: No adverse reaction aa5 15:25 Drug: morphine IM 4 mg Route: IM; Site: left gluteus; aa5 15:45 Follow up: Response: No adverse reaction aa5 15:25 Drug: Ondansetron Oral Disintegrating Tablet Oral Disintegrating Tablet 4 mg Route: PO; aa5 15:45 Follow up: Response: No adverse reaction aa5 Disposition Summary: 02/21/23 16:53 Discharge Ordered Location: Home cp3 Problem: an acute exacerbation cp3 Symptoms: have improved cp3 Condition: Stable cp3 Diagnosis - Low back pain cp3 - Epileptic seizures related to external causes, not intractable cp3 Followup: cp3 - With: Private Physician - When: As needed - Reason: Discharge Instructions: - Discharge Summary Sheet cp3 - Chronic Back Pain, Rfwd-er-Pqyo cp3 - Seizure, Adult, Zpbh-[id number]-Wzol cp3 Forms: - Medication Reconciliation Form cp3 - Thank You Letter cp3 - Antibiotic Education cp3 - Prescription Opioid Use cp3 - Patient Portal Instructions cp3 Prescriptions: - ketorolac 10 mg Oral tablet - take 1 tablet by ORAL route every 8 hours for 5 days; 15 tablet; Refills: 0, cp3 Product Selection Permitted - Medrol (Shilo) 4 mg Oral Tablets, Dose Pack - take 1 tablet by ORAL route as directed - follow package instructions; 1 cp3 packet; Refills: 0, Product Selection Permitted - Cyclobenzaprine 5 mg Oral Tablet - take 1 tablet by ORAL route 3 times per day As needed; 15 tablet; Refills: 0, cp3 Product Selection Permitted Signatures: Dispatcher [employer] Abby Perez MD MD cp3 Lorena Vargas RN RN Ana Sung RN RN aa5
--- NOTE | 2023-02-21 16:53 | ER ---
Nurse's Notes [facility] Name: Heather Coon Age: 53 yrs Sex: Female : 1970 Arrival Date: 02/21/2023 Time: 14:15 Bed 8 Private MD: Diagnosis: Low back pain;Epileptic seizures related to external causes, not intractable Presentation: 02/21 14:19 Chief complaint: EMS states: family called 911 for pt having multiple seizures today. aa5 Pt states "I am having severe pain from my waist down because I need back surgery but it got worse after falling today". Pt states "I fell getting up from the toilet because my legs were numb around 2am". EMS reports pt was A\\T\\O x 3 upon arrival. Pt states "I have seizures when I am under a lot of stress or pain". 14:19 Coronavirus screen: At this time, the client does not indicate any symptoms associated aa5 with coronavirus-19. Ebola Screen: Patient denies travel to an Ebola-affected area in the 21 days before illness onset. Initial Sepsis Screen: Does the patient meet any 2 criteria? HR > 90 bpm. Does the patient have a suspected source of infection? No. Patient's initial sepsis screen is negative. Risk Assessment: Do you want to hurt yourself or someone else? Patient reports no desire to harm self or others. Onset of symptoms was February 21, 2023. 14:19 Acuity: ANDER 3 aa5 14:19 Method Of Arrival: EMS: [facility] aa5 Historical: - Allergies: 14:19 fluoxetine; aa5 14:19 Green Tea; aa5 14:19 Keppra; not an allergy, pt reports continued seizures while taking medication; aa5 - PMHx: 14:19 Anxiety; Bipolar disorder; Cancer-Cervical; Chronic obstructive lung disease; Chronic aa5 pain; Congestive heart failure; Depression; Diverticulitis; Herniated Back Disc; Hypertension; intestinal mass; Myocardial infarction; pt reports hx of seizures; Spastic Muscles; stroke; 14:24 Arthritis; aa5 - PSHx: 14:19 cervical fusion; Cholecystectomy; foot; Tonsillectomy; aa5 - Immunization history:: Adult Immunizations unknown. - Social history:: Smoking status: Patient reports the use of cigarette tobacco products, smokes one pack cigarettes per day. - Family history:: not pertinent. - History obtained from: EMS, EMS endorses patient with severe acute on chronic back pain. Screenin:20 [facility] ED Fall Risk Assessment (Adult) History of falling in the last 3 months, aa5 including since admission Yes- physiologic fall (2 pts) Confusion or Disorientation No (0 pts) Intoxicated or Sedated No (0 pts) Impaired Gait Yes (1 pt) Mobility Assist Device Used Yes (1 pt) Altered Elimination No (0 pt) Score/Fall Risk Level 3 or more points = High Risk Oriented to surroundings, Maintained a safe environment, Educated pt \\T\\ family on fall prevention, incl call for assistance when getting out of bed. Abuse screen: Denies threats or abuse. Nutritional screening: No deficits noted. Tuberculosis screening: No symptoms or risk factors identified. Assessment: 14:19 General: Appears uncomfortable, Behavior is calm, cooperative. Pain: Complains of pain aa5 in low back Pain radiates to right leg and left leg Pain currently is 10 out of 10 on a pain scale. Quality of pain is described as sharp, shooting, Pain began is chronic but became worse after fall today Is continuous. Neuro: Level of Consciousness is awake, alert, obeys commands, Oriented to person, place, time, situation. Cardiovascular: Heart tones S1 S2 present Patient's skin is warm and dry. Rhythm is regular. Respiratory: Airway is patent Respiratory effort is even, unlabored, Respiratory pattern is regular, symmetrical. GI: Abdomen is round Bowel sounds present X 4 quads. Abd is soft and non tender X 4 quads. Reports nausea, Patient currently denies vomiting. : No signs and/or symptoms were reported regarding the genitourinary system. EENT: No signs and/or symptoms were reported regarding the EENT system. Derm: Skin is pink, warm \\T\\ dry. Musculoskeletal: Reports numbness in right leg and left leg Pt able to move will legs. 15:25 Reassessment: radiology reported seizure activity to Dr. Spears, pt back from aa5 radiology and A\\T\\O x 4. . 15:39 Reassessment: Patient is alert, oriented x 3, equal unlabored respirations, skin aa5 warm/dry/pink. 16:00 Reassessment: Patient is alert, oriented x 3, equal unlabored respirations, skin aa5 warm/dry/pink. 18:15 Reassessment: Pt requesting prescription for Tylenol #3, was notified. . aa5 18:15 Reassessment: Patient is alert, oriented x 3, equal unlabored respirations, skin aa5 warm/dry/pink. Vital Signs: 14:19 BP 153 / 83; Pulse 99; Resp 19 S; Temp 98.7(O); Pulse Ox 100% on R/A; Weight 95.25 kg aa5 (R); Height 5 ft. 3 in. (R); Pain 10/10; 15:25 BP 134 / 79; Pulse 89; Resp 19 S; Pulse Ox 100% on R/A; aa5 17:30 BP 128 / 75; Pulse 84; Resp 17 S; Temp 98(TE); Pulse Ox 99% on R/A; aa5 14:19 Body Mass Index 37.20 (95.25 kg, 160.02 cm) aa5 14:19 Pain Scale: Adult aa5 ED Course: 14:19 Patient arrived in ED. aa5 14:19 Arm band placed on Patient placed in an exam room, on a stretcher. aa5 14:19 Patient has correct armband on for positive identification. Bed in low position. Call aa5 light in reach. Side rails up X2. 14:23 Triage completed. aa5 14:24 Abby Spears MD is Attending Physician. cp3 14:32 Ana Nogueira, BETH is Primary Nurse. aa5 15:19 Lumbar Spine (3 Views) XRAY In Process Unspecified. EDMS 18:15 No provider procedures requiring assistance completed. Patient did not have IV access aa5 during this emergency room visit. Administered Medications: 15:22 Drug: LORazepam IM 1 mg Route: IM; Site: right deltoid; iw 15:45 Follow up: Response: No adverse reaction aa5 15:25 Drug: morphine IM 4 mg Route: IM; Site: left gluteus; aa5 15:45 Follow up: Response: No adverse reaction aa5 15:25 Drug: Ondansetron Oral Disintegrating Tablet Oral Disintegrating Tablet 4 mg Route: PO; aa5 15:45 Follow up: Response: No adverse reaction aa5 Medication: 18:15 VIS not applicable for this client. aa5 Outcome: 16:53 Discharge ordered by . cp3 18:15 Discharged to home via wheelchair, with family. aa5 18:15 Condition: stable 18:15 Discharge instructions given to patient, Instructed on discharge instructions, follow up and referral plans. medication usage, Demonstrated understanding of instructions, follow-up care, medications, Prescriptions given X 3. 18:27 Patient left the ED. aa5 Signatures: Dispatcher [employer] Abby Perez MD MD cp3 Lorena Vargas RN RN iw Ana Nogueira RN RN aa5 Corrections: (The following items were deleted from the chart) 14:25 14:19 Chief complaint: EMS states: family called 911 for pt having multiple seizures aa5 today. Pt states "I am having severe pain from my waist down because I need back surgery but it got worse after falling today". Pt states "I fell getting up from the toilet because my legs were numb around 2am". EMS reports pt was A\\T\\O x 3 upon arrival. aa5
[2023-02-21 18:49] VITALS: TEMP 98.7; O2SAT 100
[2023-02-21 18:51] VITALS: BP 134/79
== END 2023-02-21 18:27 | disposition home or self-care (01) ==
LOC: ER 14:15
DX: G40.509 Epileptic seizures related to external causes, not intractable, without status epilepticus (principal); M54.50 Low back pain, unspecified; Z88.8 Allergy status to other drugs, medicaments and biological substances; Z91.018 Allergy to other foods
CPT/HCPCS: 72100; 96372; 99284; Q0162; J2405

== ENCOUNTER 2023-03-02 16:45 | Emergency (ER) | payer OTHER ==
--- OUTSIDE RECORDS SUMMARY | 2023-03-02 16:56 | XMS REPORT | Continuity of Care Document ---
:1970 Author Organization [facility] t Address [address] [facility] [address] [place] [address] Care Team Providers Name Role Phone Aneta Silva Primary Care Physician [phone] Alfonso MULLIGAN Attending Clinician Unavailable Alfonso Lopez Attending Clinician RITCHIE WARREN Attending Clinician Unavailable Ritchie Warren MD Attending Clinician Shy Beckman RN Attending Clinician Halima Mendoza MD Attending Clinician Jen Yepez MD Attending Clinician Parrish Diane MD Attending Clinician PARRISH DIANE Attending Clinician Unavailable LORENZA HER Attending Clinician Unavailable Sav Rondon MD Attending Clinician Lorenza Her MD Attending Clinician Nicole OPERATOR PREFINISH, Maria Teresa Attending Clinician CHANTEL MATTHEWS Attending Clinician Unavailable CHANTEL MATTHEWS Attending Clinician Unavailable Brandyn Mcfarlane MD Attending Clinician SELINA MARTINES Attending Clinician Unavailable Sam Sapna Freya Attending Clinician Glory Esteves MD Attending Clinician [phone] Selina Martines MD Attending Clinician Vaccine, [place] Pedi Attending Clinician Unavailable Jose Frederick MD Attending Clinician JOSE FREDERICK Attending Clinician Unavailable NICHELLE ALLISON Attending Clinician Unavailable Nichelle Bishop Attending Clinician Doctor Unassigned, [place] Attending Clinician Unavailable Miky Nava RN Attending [...] Date Seizure Seizure Disease Recurre [facility]02 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 without without angina angina pectoris pectoris Snores Snores Disease Active Univers 1-12 ity of 00:00: [place] 00 Medical Branch Cigarette Cigarette Disease Active Uni vers smoker smoker 1-12 ity of 00:00: [place] 00 Medical Branch Primary Primary Disease Active Univers hypertensi hypertensi 1-12 it y of on on 00:00: [place] 00 Medical Branch Other Other Disease Active Univers hyperlipid hyperlipid 1-12 it y of emia emia 00:00: [place] 00 Medical Branch Coronary Coronary Disease Active Unive rs artery artery 1-12 ity of disease disease 00:00: [place] involving involving 00 Medi kwame ione ione 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 heart without without angina angina pectoris [...] Stop Date Source Natural mother Alcohol abuse [facility] Natural mother Cancer [facility] Natural mother Diabetes [facility] Natural mother Heart disease [facility] Natural mother Hyperlipidemia [facility] Natural mother Kidney disease [facility] Natural mother Stroke [facility] Paternal uncle Diabetes [facility] Social History Social Habit Start Date Stop Date Quantity Comments Source History SDOH Social Unive rsity of Connections [facility] ical Together Branch History SDOH Social Unive rsity of Connections [facility] History SDOH Social Unive rsity of Connections [place] [facility] Branch History SDOH Social Unive rsity of Connections [place] [facility] Branch History of tobacco Cigarette Smoker [facility] History SDOH [facility] Alcohol Frequency Medical [facility] History SDOH [facility] Alcohol Std Drinks Medica Center History SDOH [facility] Alcohol Binge Medical [address] Exposure to 2022-12-01 2022-12-11 Not sure University of SARS-CoV-2 (event) 00:00:00 08:54:00 [facility] Cigarettes smoked 2022-08-02 2022-08-02 [facility] [...] Unive rsity of Connections Phone 00:00:00 00:00:00 [facility] edical Branch History SDOH Social 2022-08-01 2022-08-01 5 Unive rsity of Connections Living 00:00:00 00:00:00 [place] [facility] History SDOH 2022-08-01 2022-08-01 0 University o f Physical Activity 00:00:00 00:00:00 [place] M edical DPW Branch History SDOH 2022-08-01 2022-08-01 0 University o f Physical Activity 00:00:00 00:00:00 [facility] edical MPS Branch History SDOH 2022-08-01 2022-08-01 3 University o f Financial 00:00:00 00:00:00 [place] [facility] History SDOH Food 2022-08-01 2022-08-01 1 Univers ity of Worry 00:00:00 00:00:00 [place] [facility] History SDOH Food 2022-08-01 2022-08-01 1 Univers ity of Scarcity 00:00:00 00:00:00 [place] [facility] History SDOH 2022-08-01 2022-08-01 2 University o f Transport Med 00:00:00 00:00:00 [place] Medic al Branch History SDWA 2022-08-01 2022-08-01 2 University o f Transport Non-Med 00:00:00 00:00:00 [facility] Cigarette 2022-07-31 2022-07-31 University of pack-years 00:00:00 00:00:00 [facility] Tobacco use and 2022-07-31 2022-07-31 Smokeless tobacco Un iversity of exposure 00:00:00 00:00:00 non-user [facility] Education 2022-07-31 2022-07-31 14 [facility] 00:00:00 00:00:00 [facility] Sex Assigned At [address] [facility] 00:00[facility]00 00[facility]00 [facility] Center Smoking Status Start Date Stop Date Source Smokes tobacco daily 2022-07-31 00:00:00 Univers ity of [facility] Medications Ordered Filled Start Stop Current Ordering Indication Dosage Frequency Signature Comments Components Source Medication Medication Date Date Medication? Clinician (SIG) Name Name lacosamide 2022- No 200mg 200 mg, IV Univers (VIMPAT) 5-25 05-25 Piggyback, ity of 200 mg in 19:45: 19:57 ONCE, 1 [place] NaCl 0.9% 00 :00 dose, On Medica l (NS) 50 mL [facility] Branch piggyback 12/11/22 at 1445, Administer over 30 Minutes, 50 mL
F aculty member approving Restricted medication : Alfonso MULLIGAN ketorolac 2022- No 15mg 15 mg, Unive rs (TORADOL) 12-11 05-25 Slow IV ity of injection 18:15: 17:25 Push, [place] 15 mg 00 :00 ONCE, 1 Medical dose, On Branch [facility] 12/11/22 at 1315, MICHAEL iopamidol 2022- No [id number] 80mL 80 mL, U nivers (ISOVUE 12-11 Intravenou ity o f 370-500 mL) 16:30: 16:27 s, ONCE, 1 [place] injection 00 :00 dose, On Medica l 80 mL [facility] Branch 12/11/22 at 1130, Routine nitroglycer 2022- No .5[in_u 0.5 Inch, Univers in (NITROL) 12-11- s] Transderma i ty of 2 % 15:30: 14:31 l (Apply [place] ointment 00 :00 To Skin), Medica l 0.5 Inch ONCE, 1 Branch dose, On [facility] 12/11/22 at 1030, MICHAEL aspirin 2022- No 324mg 324 mg, Unive rs chewable 12-11-25 Oral, ity of tablet 324 15:30: 14:30 ONCE, 1 [place] as mg 00 :00 dose, On [facility] Branch 12/11/22 at 1030, Routine ondansetron 2022- No 4mg 4 mg, Slow Univers (ZOFRAN 12-11-25 IV Push, ity of (PF)) 15:30: 14:29 ONCE, 1 [place] injection 4 00 :00 dose, On Medi kwame mg [facility] Branch 12/11/22 at 1030, MICHAEL LORazepam 2022- No 1mg 1 mg, Slow U nivers (ATIVAN) 12-11 05-25 IV Push, ity of injection 1 15:00: 14:57 ONCE, 1 [place] mg 00 :00 dose, On Medical [facility] 12/11/22 at 1000, STAT Lacosamide 2022-0 Yes [id number] 100mg Take 1 Univers (VIMPAT) 5-25 tablet by ity of 100 mg 00:00: mouth in [place] tablet 00 the Medical morning Branch and 1 tablet in the evening. acetaminoph 2022-2022- No 1{tbl} 1 tablet, Univers en-codeine 11-18 Oral, ity of (TYLENOL 05:30: 05:30 ONCE, 1 [place] #3) 300-30 00 :00 dose, On Medic al mg tablet 1 Thu11/18/22 Br anch tablet at 0030, MICHAEL methocarbam 2022- No 1000mg 1,000 mg, Univers oL 11-18 Oral, ity of (ROBAXIN) 05:30: 05:30 ONCE, 1 [place] tablet 00 :00 dose, On Medical 1,000 mg [facility] 11/18/22 Branc h at 0030, MICHAEL ondansetron 2022- No 4mg 4 mg, Slow Univers (ZOFRAN 11-18 IV Push, ity of (PF)) 04:45: 03:38 ONCE, 1 [place] injection 4 00 :00 dose, On Medi kwame mg [facility] 11/17/22 Branch at 2345, MICHAEL morpHINE (4 2022- No 4mg 4 mg, Slow Univers mg/mL) 11-18 IV Push, ity of injection 4 03:45: 03:38 ONCE, 1 [place] mg 00 :00 dose, On [place] [facility] 11/17/22 Branch at 2245, Routine methocarbam 2022- No 1000mg 1,000 mg, Univers oL 11-18 05- Intravenou ity of (ROBAXIN) 00:30: 23:47 s, ONCE, 1 [place] injection 00 :00 dose, On Medica l 1,000 mg [facility] 11/17/22 Branc h at 1930, MICHAEL methocarbam 2022-0 Yes [id number] 1000mg Take 2 Univers oL 500 mg -02 tablets by ity of tablet 00:00: mouth 4 [place] 00 (four) Medical times Branch daily as needed for Pain (scale 7-10). methocarbam Yes [id number] 1000mg Take 2 Univers oL 500 mg [...] on 08/06/22 at 0900, Routine morpHINE (2 2023-0 Yes 2mg 2 mg, Slow Univers mg/mL) [...] 1-13 by mouth ity of 23:49: daily. [address] omega-3 0 Yes 1g Take 1 g Univer s fatty 1-13 by mouth ity of acids-vitam 23:49: daily. [place] in E (FISH 34 Medical OIL) 1,000 Branch mg capsule loratadine 0 Yes Take by Univ ers (CLARITIN 1-13 mouth ity of LIQUI-GEL) 23:49: daily. [place] 10 mg Medical capsule Branch ondansetron 0 Yes 4mg Take 4 mg U nivers 4 mg tablet 1-13 by mouth ity of 23:49: every [address] [place] [address] (eight) Medical hours as Branch needed. pantoprazol 0 Yes 40mg Take 40 mg Univers e 40 mg EC 1-13 by mouth ity o f tablet 23:49: daily. [address] MULTIVITAMI 0 Yes 1{tbl} Take 1 Tab Univers N ORAL 1-13 by mouth ity of 23:49: daily. [address] omega-3 2022-0 Yes 1g Take 1 g Univer s fatty 1-13 by mouth ity of acids-vitam 23:49: daily. [place] in [place] (FISH 34 Medical OIL) 1,000 Branch mg capsule loratadine 0 Yes Take by Univ ers (CLARITIN 1-13 mouth ity of LIQUI-GEL) 23:49: daily. [place] 10 mg 34 Medical capsule Branch ondansetron 0 Yes 4mg Take 4 mg U nivers 4 mg tablet 1-13 by mouth ity of 23:49: every 8 [place] [address] (eight) Medical hours as Branch needed. pantoprazol 0 Yes 40mg Take 40 mg Univers e 40 mg EC 1-13 by mouth ity o f tablet 23:49: daily. [address] MULTIVITAMI Yes 1{tbl} Take 1 Tab Univers N ORAL 1-13 by mouth ity of 23:49: daily. [address] omega-3 Yes 1g Take 1 g Univer s fatty 1-13 by mouth ity of acids-vitam 23:49: daily. [place] in [place] (FISH 34 Medical OIL) 1,000 Branch mg capsule loratadine Yes Take by Univ ers (CLARITIN 1-13 mouth ity of LIQUI-GEL) 23:49: daily. [place] 10 mg 34 Medical capsule Branch ondansetron Yes 4mg Take 4 mg U nivers 4 mg tablet 1-13 by mouth ity of 23:49: every 8 [place] [address] (eight) Medical hours as Branch needed. pantoprazol 0 Yes 40mg Take 40 mg Univers e 40 mg EC 1-13 by mouth ity o f tablet 23:49: daily. [address] MULTIVITAMI Yes 1{tbl} Take 1 Tab Univers N ORAL 1-13 by mouth ity of 23:49: daily. [address] omega-3 Yes 1g Take 1 g Univer s fatty 1-13 by mouth ity of acids-vitam 23:49: daily. [place] in [place] (FISH 34 Medical OIL) 1,000 Branch mg capsule loratadine Yes Take by Univ ers (CLARITIN 1-13 mouth ity of LIQUI-GEL) 23:49: daily. [place] 10 mg 34 Medical capsule Branch ondansetron 0 Yes 4mg Take 4 mg U nivers 4 mg tablet 1-13 by mouth ity of 23:49: every 8 [place] [address] (eight) Medical hours as Branch needed. pantoprazol 2022-0 Yes 40mg Take 40 mg Univers e 40 mg EC 1-13 by mouth ity o f tablet 23:49: daily. [address] MULTIVITAMI 2023-0 Yes 1{tbl} Take 1 Tab Univers N ORAL -13 by mouth ity of 23:49: daily. [address] Branch omega-3 2022-0 Yes 1g Take 1 g Univer s fatty -13 by mouth ity of acids-vitam 23:49: daily. [place] in [place] (FISH 34 Medical OIL) 1,000 Branch mg capsule loratadine 0 Yes Take by Univ ers (CLARITIN - mouth ity of LIQUI-GEL) 23:49: daily. [place] 10 mg 34 Medical capsule Branch ondansetron 0 Yes 4mg Take 4 mg U nivers 4 mg tablet 08-01 by mouth ity of 23:49: every 8 [place] 34 (eight) Medical hours as Branch needed. pantoprazol 0 Yes 40mg Take 40 mg Univers e 40 mg EC 08-01 by mouth ity o f tablet 23:49: daily. [address] Branch benzonatate 0 Yes 100mg 100 mg, Un lois (TESSALON -13 Oral, Q8H, ity of PERLES) 20:00: First [...] Shortness of Breath sulfur 2022-0 2023- No [id number] 5mL 5 mL, Unive rs hexafluorid 08-01 Intravenou i ty of e microsphr 17:00: 17:00 s, ONCE, 1 [place] (LUMASON) 00 :00 dose, On Medica l injection 5 Fri Branch mL 08/01/22 at 1100, Routine
administrative appeals tribunal member approving Restricted medication : KYLEE DIEGO pantoprazol Yes 40mg 40 mg, Univ ers e 08-01 Oral, ity of (PROTONIX) 15:00: DAILY, [place] EC tablet 00 First dose Medi kwame 40 mg on Fri Branch 08/01/22 at 0900, Until [...] Anxiety, ETOH / Cocaine Withdrawl foLIC acid 0 Yes 1mg 1 mg, Univer s (FOLATE) 113 Oral, ity of tablet 1 mg 05:45: [...] :00 ONCE, 1 Medical dose, On Branch [facility] 07/31/22 at 2330, MICHAEL atorvastati 0 Yes 40mg 40 mg, Univ ers n (LIPITOR) 13 Oral, QHS, it y of tablet 40 03:00: First dose [place] mg 00 on [facility] 07/31/22 at Branch 2100, Until Discontinu ed, Routine diphenhydrA 0 Yes 25mg 25 mg, Univ ers MINE 113 Oral, ity of (BENADRYL) 00:32: Q6HPRN, [place] [...] 2023- No 1{tbl} 1 tablet, Univers -acetaminop 07-31 Oral, ity of hen (NORCO 22:01: 22:00 Q6HPRN, [place] as 5) 5-325 mg 34 :34 Starting Medi kwame tablet 1 on [facility] Branch tablet 07/31/22 at 1601, Until 08/02/22 [...] 1415, Until Discontinu ed, Routine methylpredn 2022-0 2023- No 125mg 125 mg, U nivers isolone sod 07-31 Slow IV ity of succ 19:30: 18:54 Push, ONCE [place] (SOLU-MEDRO 00 :00 NOW, 1 Medica l L) dose, On Branch injection Arpita 125 mg 07/31/22 at 1330, MICHAEL ipratropium 2022- No 3mL 3 mL, [facility] ers -albuteroL 07-31 Inhalation it y of (DUONEB) 19:30: 18:48 , ONCE, 1 [place] as 0.5 mg-3 00 :00 dose, On Medical mg(2.5 mg Arpita Branch base)/3 mL 07/31/22 at nebulizer 1330, MICHAEL solution 3 mL pantoprazol Yes 40mg Take 40 mg Univers e 40 mg EC 12 by mouth ity o f tablet 17:15: daily. [place] 40 Medical Branch MULTIVITAMI 0 Yes 1{tbl} Take 1 Tab Univers N ORAL 12 by mouth ity of 15:50: daily. [place] 57 Medical Branch loratadine Yes Take by [facility] ers (CLARITIN -12 mouth ity of LIQUI-GEL) 15:50: daily. [place] 10 mg 57 Medical capsule Branch ondansetron Yes 4mg Take 4 mg U nivers 4 mg tablet 12 by mouth ity of 15:50: every 8 [place] 57 (eight) Medical hours as Branch needed. omega-3 Yes 1g Take 1 g [place] [facility] fatty 12 by mouth ity of acids-vitam 15:21: [facility]. [facility] E (FISH 27 Medical OIL) 1,000 Branch mg capsule TAKE ONE No (1) 1-09 TABLET(S) 00:00: BY MOUTH 00 THREE TIMES A DAY NEEDED. Methylpredn 2021-07- No [id number] 4mg Take 1 Univers isolone 4 0-22 10-24 tablet ity of mg tablet 00:00: 04:59 through [place] 00 :00 enteral Medical tube in Branch the morning for 1 dose. Methylpredn 2021-07- No [id number] 4mg Take 1 Univers isolone 4 0-21 10-23 tablet ity of mg tablet 00:00: 04:59 through [place] 00 :00 enteral Medical tube every Branch 12 (twelve) hours for 2 doses. MULTIVITAMI 2021-07 Yes 1{tbl} Take 1 Tab Univers N ORAL 0-20 by mouth ity of 14:44: daily. [place] 48 Medical Branch omega-3 2021-07 Yes 1g Take 1 g Univer s fatty 0-20 by mouth ity of acids-vitam 14:44: daily. [place] in [place] (FISH 48 Medical OIL) 1,000 Branch mg capsule loratadine 2021-07 Yes Take by [facility] ers (CLARITIN 0-20 mouth ity of LIQUI-GEL) 14:44: daily. [place] 10 mg 48 Medical capsule Branch ondansetron 2021-07 Yes 4mg Take 4 mg U nivers (ZOFRAN) 4 0-20 by mouth ity o f mg tablet 14:44: every 8 [place] 48 (eight) Medical hours as Branch needed. pantoprazol 2021-07 Yes 40mg Take 40 mg Univers e 0-20 by mouth ity of (PROTONIX) 14:44: daily. [place] 40 mg EC 48 Medical tablet Branch DULoxetine 2021-07 Yes 30mg 30 mg, Unive rs (CYMBALTA) 0-20 Oral, ity of capsule 30 14:00: DAILY, [place] mg 00 First dose Medical on [facility] Branch 05/08/22 at 0900, Until Discontinu ed, Routine divalproex 2021-07 Yes 1000mg 1,000 mg, Univers (DEPAKOTE) 0-20 Oral, BID, ity of EC tablet 13:00: First dose [place] 1,000 mg 00 (after Medical last Branch modificati on) on [facility] 05/08/22 at 0800, Until Discontinu ed, Routine Methylpredn 2021-07 No 4mg 4 mg, [facility] ers isolone 0-20 10-21 Oral, Q8H ity of (MEDROL) 08:50: 08:59 TAPER, 3 [place] tablet 4 mg 10 :00 doses, Medica l First dose Branch on [facility] 05/08/22 at 0400, Last dose on [facility] 05/08/22 at 2000, Routine acetaminoph 2021-07 Yes [...] Discontinu ed, Routine, Anxiety cyclobenzap 2021-07 Yes [id number] 5mg Take 1 Univers rine 5 mg 0-20 tablet by ity o f tablet 00:00: mouth in [place] [address] the [facility] morning Branch and 1 tablet at noon and 1 tablet in the evening. cyclobenzap 2021-07 Yes [id number] 5mg Take 1 Univers rine 5 mg 0-20 tablet by ity o f tablet 00:00: mouth in [address] morning Branch and 1 tablet at noon and 1 tablet in the evening. cyclobenzap 2021-07 Yes [id number] 5mg Take 1 Univers rine 5 mg 0-20 tablet by ity o f tablet 00:00: mouth in [address] morning Branch and 1 tablet at noon and 1 tablet in the evening. cyclobenzap 2021-07 Yes [id number] 5mg Take 1 Univers rine 5 mg 0-20 tablet by ity o f tablet 00:00: mouth in [address] morning Branch and 1 tablet at noon and 1 tablet in the evening. cyclobenzap 2021-07 Yes [id number] 5mg Take 1 Univers rine 5 mg 0-20 tablet by ity o f tablet 00:00: mouth in [address] morning Branch and 1 tablet at noon and 1 tablet in the evening. cyclobenzap 2021-07 Yes [id number] 5mg Take 1 Univers rine 5 mg 0-20 tablet by ity o f tablet 00:00: mouth in [place] 00 the Medical morning Branch and 1 tablet at noon and 1 tablet in the evening. cyclobenzap 2021-07 Yes [id number] 5mg Take 1 Univers rine 5 mg 0-20 tablet by ity o f tablet 00:00: mouth in [place] 00 the Medical morning Branch and 1 tablet at noon and 1 tablet in the evening. DULoxetine 2021-07- No [id number] 60mg Take 2 Univers (CYMBALTA) 0-20 11-20 capsules ity of 30 mg 00:00: 05:59 by mouth [place] capsule 00 :00 in the Medical morning Branch for 30 days. divalproex 2021-07- No [id number] 750mg Take 3 Univers (DEPAKOTE) 0-20 11-20 tablets by it y of 250 mg EC 00:00: 05:59 mouth [place] tablet 00 :00 every 8 Medical (eight) Branch hours for 30 days. LORazepam 1 2021-07- No [id number] 1mg Take 1 Univers mg tablet 0-20 [...] Indication s: acute pain Methylpredn 2021-07- No [id number] 4mg Take 1 Univers isolone 4 0-20 10-22 tablet by ity of mg tablet 00:00: 04:59 mouth [place] 00 :00 every 8 Medical (eight) Branch hours for 3 doses. divalproex 2021-07- No 750mg 750 mg, Un lois (DEPAKOTE) 0-19 10-20 Oral, BID, it y of EC tablet 01:00: 09:40 First dose [place] 750 mg 00 :23 on [facility] 05/06/22 Branch at 1999, Until Discontinu [...] [place] tablet 500 00 :42 on [facility] 05/05/22 Branch at 2115, Until Discontinu ed, Routine LORazepam 2021-07 No 2mg 2 mg, Univer s (ATIVAN) 05-06 Oral, ity of tablet 2 mg 01:30: 01:03 ONCE, 1 [place] 00 :00 dose, On [facility] 05/05/22 at 2030, Routine levETIRAcet 2021-07 No [...] Medical 1,000 dose, On Branch mg/100 mL [facility] RTU 05/05/22 at 1445, Administer over [...] First dose [place] mg 00 on [facility] 05/05/22 Branch at 1430, Until Discontinu ed, Routine cyclobenzap 2021-07 Yes 5mg 5 mg, Unive rs rine 0-17 Oral, TID, ity of (FLEXERIL) 19:30: First dose [place] tablet 5 mg 00 on [facility] l 05/05/22 Branch at 1430, Until Discontinu [...] 4 57 Starting Medi kwame mg on [facility] Branch 05/05/22 at 0149, Until Discontinu [...] 39 :52 Starting Medic al mg on [facility] Branch 05/05/22 at 0149, Until Thu05/05/22 at 1418, Routine, Pain (scale 4-6) ondansetron 2021-07- No 4mg 4 mg, Univ ers (ZOFRAN) 0-17 10-17 Oral, ity of tablet 4 mg 04:00: 03:26 ONCE, 1 [place] 00 :00 dose, On [facility] 05/04/22 at 2300, Routine morpHINE (2 2021-07- No 2mg 2 mg, Slow Univers mg/mL) 0-17 10-17 IV Push, ity of injection 2 04:00: 03:26 ONCE, 1 [place] mg 00 :00 dose, On [facility] 05/04/22 at 2300, Routine aspirin 81 0 Yes [id number] 81mg Take 1 U nivers mg chewable 9-28 tablet by ity of tablet 00:00: mouth in [place] 00 the Medical morning. Branch aspirin 81 2021-0 Yes [id number] 81mg Take 1 U nivers mg chewable 9-28 tablet by ity of tablet 00:00: mouth in [place] 00 the Medical morning. Branch aspirin 81 0 Yes [id number] 81mg Take 1 U nivers mg chewable 9-28 tablet by ity of tablet 00:00: mouth in [place] 00 the Medical morning. Branch aspirin 81 0 Yes [id number] 81mg Take 1 U nivers mg chewable 9-28 tablet by ity of tablet 00:00: mouth in [place] 00 the Medical morning. Branch aspirin 81 0 Yes [id number] 81mg Take 1 U nivers mg chewable 9-28 tablet by ity of tablet 00:00: mouth in [place] 00 the Medical morning. Branch aspirin 81 0 Yes [id number] 81mg Take 1 U nivers mg chewable 9-28 tablet by ity of tablet 00:00: mouth in [place] 00 the Medical morning. Branch aspirin 81 0 Yes [id number] 81mg Take 1 U nivers mg chewable 9-28 tablet by ity of tablet 00:00: mouth in [place] 00 the Medical morning. Branch aspirin 81 0 Yes [id number] 81mg Take 1 U nivers mg chewable 9-28 tablet by ity of tablet 00:00: mouth in [place] 00 the Medical morning. [place] MULTIVITAMI Yes 1{tbl} Take 1 Tab Univers N ORAL 9-27 by mouth ity of 17:39: daily. [place] 14 Medical Branch omega-3 Yes 1g Take 1 g Univer s fatty 9- by mouth ity of acids-vitam 17:39: daily. [place] in E (FISH 14 Medical OIL) 1,000 Branch mg capsule loratadine Yes Take by Univ ers (CLARITIN 9- mouth ity of LIQUI-GEL) 17:39: daily. [place] 10 mg 14 Medical capsule Branch ondansetron [...] :00 ONCE, 1 Medical dose, On Branch 9/26/22 at 2115, Routine levETIRAcet Yes [id number] 1000mg Take 1 Univers am 1,000 mg 9-27 tablet by ity of tablet 00:00: mouth in [place] 00 the Medical morning Branch and 1 tablet in the evening. atorvastati Yes [id number] 40mg Take 1 Univers n 40 mg 9-27 tablet by ity of tablet 00:00: mouth at [place] 00 bedtime. Medical Branch atorvastati Yes [id number] 40mg Take 1 Univers n 40 mg 9-27 tablet by ity of tablet 00:00: mouth at [place] 00 bedtime. Medical Branch atorvastati Yes [id number] 40mg Take 1 Univers n 40 mg 9-27 tablet by ity of tablet 00:00: mouth at [place] 00 bedtime. Medical Branch atorvastati Yes [id number] 40mg Take 1 Univers n 40 mg 9-27 tablet by ity of tablet 00:00: mouth at [place] 00 bedtime. Medical Branch atorvastati Yes [id number] 40mg Take 1 Univers n 40 mg 9-27 tablet by ity of tablet 00:00: mouth at [place] 00 bedtime. Medical Branch atorvastati Yes [id number] 40mg Take 1 Univers n 40 mg 9-27 tablet by ity of tablet 00:00: mouth at [place] 00 bedtime. Medical Branch atorvastati Yes [id number] 40mg Take 1 Univers n 40 mg 9-27 tablet by ity of tablet 00:00: mouth at [place] [address] bedtime. Medical Branch atorvastati Yes [id number] 40mg Take 1 Univers n 40 mg 9-27 tablet by ity of tablet 00:00: mouth at [place] 00 bedtime. Medical Branch levETIRAcet 2021- No [id number] 1000mg Take 1 Univers am 1,000 mg 9-27 10-20 tablet by it y of tablet 00:00: 00:00 mouth in [place] 00 :00 the Medical morning Branch and 1 tablet in the evening. lidocaine 5 2021- No [id number] 1{patch Apply 1 Univers % (700 9-27 [...] 12 Medical patch 1 Hours, Branch Patch [id number], Starting on Thu04/14/22 at 1645, Until Discontinu ed, Routine, Localized pain aspirin Yes 81mg 81 mg, Univers chewable 04-14 Oral, ity of tablet 81 21:30: DAILY, [place] mg 00 First dose Medical on Thu Branch 04/14/22 at 1630, Until Discontinu ed, Routine acetaminoph Yes 650mg 650 mg, Un lois en 04-14 Oral, ity of (TYLENOL) 21:29: Q6HPRN, Jose Miguel tablet 650 25 Starting Medic al mg [...] 7-10), Pain (scale 4-6) sulfur 2021- No [id number] 5mL 5 mL, Univ ers hexafluorid 04-14 Intravenou i ty of e microsphr 16:45: 16:45 s, ONCE, 1 [place] (LUMASON) 00 :00 dose, On Medica l injection 5 [facility] mL 04/14/22 at 1145, Routine
administrative appeals tribunal member approving Restricted medication : GERSON WEBSTER [...] [place] 00 on [facility] 04/13/22 at Branch 2100, Until Discontinu ed, Routine LORazepam 2021- No 1mg 1 mg, Univer s (ATIVAN) 04-14 Oral, ity of tablet 1 mg 01:30: 01:45 ONCE, 1 [place] 00 :00 dose, On Medical [facility] 04/13/22 at 2030, Routine methocarbam Yes 500mg 500 mg, Un lois oL 04-14 Oral, QID, ity of (ROBAXIN) 01:00: First dose [place] tablet 500 00 on [facility] mg 04/13/22 at Branch 2000, Until Discontinu ed, Routine heparin 0 Yes 5000U 5,000 Univers (porcine) 04-14 Units, ity of injection 01:00: Subcutaneo [place] 5,000 Units 00 us, Q12H, Med ical First dose Branch on [place] 04/13/22 at 2000, Until Discontinu ed, Routine acetaminoph 2021- No 650mg 650 mg, U nivers en 04-14 Oral, ity of (TYLENOL) 00:23: 21:29 Q6HPRN, [place] 650 25 :42 Starting Medic al mg on [facility] 04/13/22 at 1923, Until [facility] 04/14/22 at 1629, Routine, Pain (scale [...] ONCE, 1 Medical 50 mcg dose, On [facility] 04/13/22 at 1530, Routine aspirin 2021- No 650mg 650 mg, Unive rs chewable 04-13 Oral, ity of tablet 650 20:15: 20:15 ONCE, 1 [place] mg 00 :00 dose, On Medical [facility] 04/13/22 at 1515, Routine clopidogreL 2021- No 300mg 300 mg, U nivers (PLAVIX) 04-13 Oral, ity of 300 mg 20:00: 19:15 ONCE, 1 [place] tablet 300 00 :00 dose, On Medic al mg [facility] 04/13/22 at 1500, Routine ondansetron 2021- No 4mg 4 mg, Slow Univers (ZOFRAN 04-13 IV Push, ity of (PF)) 19:30: 19:22 ONCE, 1 [place] injection 4 00 :00 dose, On Medi kwame mg [facility] 04/13/22 at 1430, MICHAEL iopamidol 2021- No [id number] 100mL 100 mL, Univers (ISOVUE 04-13 Intravenou ity o f 370-500 mL) 18:31: 18:32 s, ONCE, 1 [place] injection 00 :00 dose, On Medica l 100 mL [facility] 04/13/22 at 1345, Routine NaCl 0.9% Yes [...] 2022-0 No Unknown 3-16 00:00: 00 Dose 2-0 No Unknown 3-16 00:00: 00 Dose 2-0 No Unknown 3-16 00:00: 00 Dose 2022-0 [...] Sat Medica l mg(2.5 mg 03/16/21 at [facility] base)/3 mL 2100, MICHAEL nebulizer solution [...] IV ity of succ 01:57: 02:11 Push, [place] (SOLU-MEDRO 00 :00 ONCE, 1 Medic al L) dose, Sat Branch injection 03/16/21 at 125 mg 2100, STAT ipratropium 2020- No 3mL 3 mL, Univ ers -albuteroL 03-17 Inhalation it y of (DUONEB) 01:57: 02:15 , ONCE, 1 [place] 0.5 mg-3 00 :00 dose, Sat Medica l mg(2.5 mg 03/16/21 at [place] ch base)/3 mL 2100, MICHAEL nebulizer solution 3 mL ipratropium No 3mL 3 mL, Univ ers -albuteroL 03-17 Inhalation it y of () 01:57: 02:15 , ONCE, 1 [place] as [...] IV ity of succ 01:57: 02:11 Push, [place] (SOLU-MEDRO 00 :00 ONCE, 1 Medic al L) dose, Sat Branch injection 03/16/21 at 125 mg 2100, STAT ipratropium No 3mL 3 mL, Univ ers -albuteroL 03-17 Inhalation it y of () 01:57: 02:15 , ONCE, 1 [place] 0.5 mg-3 00 :00 dose, Sat Medica l mg(2.5 mg 03/16/21 at [place] ch base)/3 mL 2099, MICHAEL nebulizer solution 3 mL levoFLOXaci 2020- No [id number] 500mg Take 1 Univers n 500 mg 03-17 tablet by ity o f tablet 00:00: 04:59 mouth [place] 00 :00 daily for Medical 6 days. Branch levoFLOXaci 2020- No [id number] 500mg Take 1 Univers n 500 mg 03-17 tablet by ity o f tablet 00:00: 04:59 mouth [place] 00 :00 daily for Medical 6 days. Branch levoFLOXaci 2020- No [id number] 500mg Take 1 Univers n 500 mg 03-17 tablet by ity o f tablet 00:00: 04:59 mouth [place] 00 :00 daily for Medical 6 days. Branch levoFLOXaci No [id number] 500mg Take 1 Univers n 500 mg 03-17 tablet by ity o f tablet 00:00: 04:59 mouth [place] 00 :00 daily for Medical 6 days. Branch predniSONE 2020- No [id number] 30mg Take 3 Univers 10 mg 03-17 tablets by ity of tablet 00:00: 04:59 mouth [place] 00 :00 daily for Medical 4 days. Branch predniSONE No [id number] 30mg Take 3 Univers 10 mg 03-17 tablets by ity of tablet 00:00: 04:59 mouth [place] 00 :00 daily for Medical 4 days. Branch predniSONE No [id number] 30mg Take 3 Univers 10 mg 03-17 tablets by ity of tablet 00:00: 04:59 mouth [place] 00 :00 daily for Medical 4 days. Branch predniSONE No [id number] 30mg Take 3 Univers 10 mg 03-17 tablets by ity of tablet 00:00: 04:59 mouth [place] 00 :00 daily for Medical 4 days. Branch albuterol 2020- No [id number] 4{puff} 4 Puff, Univers (VENTOLIN) 03-15 Inhalation it y of inhaler 4 01:45: 00:44 , ONCE, 1 [place] Puff 00 :00 dose, [facility] 03/14/21 at [place] 2044, Routine dexamethaso No [id number] 10mg 10 mg, Univers ne 03-15 Intramuscu ity of (DECADRON) 01:45: 00:45 lar, ONCE, [place] injection 00 :00 1 dose, Medical 10 mg [facility] [place] 03/14/21 at 2044, Routine albuterol Yes [id number] 2.5mg Inhale 3 Univers 2.5 mg /3 03-15 mL every 4 ity of mL (0.083 00:00: (four) [place] %) 00 hours as Medical nebulizer needed for Bran ch solution Wheezing or Shortness of Breath. albuterol 2020-0 Yes [id number] 2.5mg Inhale 3 Univers 2.5 mg /3 8-27 mL every 4 ity of mL (0.083 00:00: (four) [place] %) 00 hours as Medical nebulizer needed for Bran ch solution Wheezing or Shortness of Breath. albuterol 2020-0 Yes [id number] 2.5mg Inhale 3 Univers 2.5 mg /3 8-27 mL every 4 ity of mL (0.083 00:00: (four) [place] %) 00 hours as Medical nebulizer needed for Bran ch solution Wheezing or Shortness of Breath. albuterol 2020-0 Yes [id number] 2.5mg Inhale 3 Univers 2.5 mg /3 8-27 mL every 4 ity of mL (0.083 00:00: (four) [place] %) 00 hours as Medical nebulizer needed for Bran ch solution Wheezing or Shortness of Breath. albuterol 2020-0 Yes [id number] 2.5mg Inhale 3 Univers 2.5 mg /3 8-27 mL every 4 ity of mL (0.083 00:00: (four) [place] %) 00 hours as Medical nebulizer needed for Bran ch solution Wheezing or Shortness of Breath. albuterol 2020-0 Yes [id number] 2.5mg Inhale 3 Univers 2.5 mg /3 8-27 mL every 4 ity of mL (0.083 00:00: (four) [place] %) 00 hours as Medical nebulizer needed for Bran ch solution Wheezing or Shortness of Breath. albuterol 2020-0 Yes [id number] 2.5mg Inhale 3 Univers 2.5 mg /3 8-27 mL every 4 ity of mL (0.083 00:00: (four) [place] %) 00 hours as Medical nebulizer needed for Bran ch solution Wheezing or Shortness of Breath. albuterol 2020-0 Yes [id number] 2.5mg Inhale 3 Univers 2.5 mg /3 8-27 mL every 4 ity of mL (0.083 00:00: (four) [place] %) 00 hours as Medical nebulizer needed for Bran ch solution Wheezing or Shortness of Breath. albuterol 2020-0 Yes [id number] 2.5mg Inhale 3 Univers 2.5 mg /3 8-27 mL every 4 ity of mL (0.083 00:00: ([facility]) [place] %) 00 hours as Medical nebulizer needed for Bran ch solution Wheezing or Shortness of Breath. albuterol 2020-0 Yes [id number] 2.5mg Inhale 3 Univers 2.5 mg /3 8-27 mL every 4 ity of mL (0.083 00:00: (four) [place] %) 00 hours as Medical nebulizer needed for Bran ch solution Wheezing or Shortness of Breath. albuterol 2020-0 Yes [id number] 2.5mg Inhale 3 Univers 2.5 mg /3 8-27 mL every 4 ity of mL (0.083 00:00: (four) [place] %) 00 hours as Medical nebulizer needed for Bran ch solution Wheezing or Shortness of Breath. albuterol 2020-0 Yes [id number] 2.5mg Inhale 3 Univers 2.5 mg /3 8-27 mL every 4 ity of mL (0.083 00:00: ([facility]) [place] %) 00 hours as Medical nebulizer needed for Bran ch solution Wheezing or Shortness of Breath. albuterol 2020-0 Yes [id number] 2.5mg Inhale 3 Univers 2.5 mg /3 8-27 mL every 4 ity of mL (0.083 00:00: (four) [place] %) 00 hours as Medical nebulizer needed for Bran ch solution Wheezing or Shortness of Breath. albuterol 2020-0 Yes [id number] 2.5mg Inhale 3 Univers 2.5 mg /3 8-27 mL every 4 ity of mL (0.083 00:00: (four) [place] %) 00 hours as Medical nebulizer needed for Bran ch solution Wheezing or Shortness of Breath. albuterol 2020-0 Yes [id number] 2.5mg Inhale 3 Univers 2.5 mg /3 8-27 mL every 4 ity of mL (0.083 00:00: (four) [place] %) 00 hours as Medical nebulizer needed for Bran ch solution Wheezing or Shortness of Breath. albuterol 2020-0 Yes [id number] 2.5mg Inhale 3 Univers 2.5 mg /3 8-27 mL every 4 ity of mL (0.083 00:00: (four) [place] %) 00 hours as Medical nebulizer needed for Bran ch solution Wheezing or Shortness of Breath. albuterol 0 Yes [id number] 2.5mg Inhale 3 Univers 2.5 mg /3 8-27 mL every 4 ity of mL (0.083 00:00: (four) [place] %) 00 hours as Medical nebulizer needed for Bran ch solution Wheezing or Shortness of Breath. albuterol Yes [id number] 2.5mg Inhale 3 Univers 2.5 mg /3 [...] (KEPPRA 8-03 mouth. ity of ORAL) 19:45: [address] levetiracet Yes Take by Uni vers am (KEPPRA 8-03 mouth. ity of ORAL) 19:45: [address] levetiracet 0 Yes Take by Uni vers am (KEPPRA 8-03 mouth. ity of ORAL) 19:45: [address] levetiracet 0 Yes Take by Uni vers am (KEPPRA 8-03 mouth. ity of ORAL) 19:45: [address] levetiracet 0 Yes Take by Uni vers am (KEPPRA 8-03 mouth. ity of ORAL) 19:45: [address] levetiracet 0 Yes Take by Uni vers am (KEPPRA 8-03 mouth. ity of ORAL) 19:45: [address] LISINOPRIL- 2020- No Take by Un lois HYDROCHLORO 02-19 mouth. ity o f THIAZIDE 19:41: 00:00 [place] ORAL 15 :00 Medical Branch dicyclomine 2020- No 20mg 20 mg, [...] Tue Medica l NaCl 0.9% 02/19/21 at [facility] h (NS) 50 mL 1415, 50 piggyback [...] at Branch 1200, MICHAEL iopamidol 2020- No [id number] 100mL 100 mL, Univers (ISOVUE 02-19 Intravenou ity o f 370-500 mL) 16:35: 16:45 s, ONCE, 1 [place] injection 00 :00 dose, Tue Medic al 100 mL 02/19/21 at Branch 1145, Routine levetiracet 2020-0 Yes Take by Uni vers am (KEPPRA 8-03 mouth. ity of ORAL) 14:45: [address] levetiracet 2020-0 Yes Take by Uni vers am (KEPPRA 8-03 mouth. ity of ORAL) 14:45: [address] levetiracet 2020-0 Yes Take by Uni vers am (KEPPRA 8-03 mouth. ity of ORAL) 14:45: [address] levetiracet 2020-0 Yes Take by Uni vers am (KEPPRA 8-03 mouth. ity of ORAL) 14:45: [address] levetiracet 2020-0 Yes Take by Uni vers am (KEPPRA 8-03 mouth. ity of ORAL) 14:45: [address] proMETHazin 2020-0 Yes [id number] 25mg Take 1 Univers e 25 mg 8-03 tablet by ity of tablet 00:00: mouth [place] 00 every 6 Medical (six) Branch hours as needed for Nausea and Vomiting (N/V). dicyclomine 2020-0 Yes [id number] 20mg Take 1 Univers 20 mg 8-03 tablet by ity of tablet 00:00: mouth 4 [place] 00 (four) Medical times Branch daily as needed for Abdominal pain. proMETHazin 2020-0 Yes [id number] 25mg Take 1 Univers e 25 mg 8-03 tablet by ity of tablet 00:00: mouth [place] 00 every 6 Medical (six) Branch hours as needed for Nausea and Vomiting (N/V). dicyclomine 2020-0 Yes [id number] 20mg Take 1 Univers 20 mg 8-03 tablet by ity of tablet 00:00: mouth 4 [place] 00 (four) Medical times Branch daily as needed for Abdominal pain. proMETHazin 202-0 Yes [id number] 25mg Take 1 Univers e 25 mg 8-03 tablet by ity of tablet 00:00: mouth [place] 00 every 6 Medical (six) Branch hours as needed for Nausea and Vomiting (N/V). dicyclomine 2021-0 Yes [id number] 20mg Take 1 Univers 20 mg 8-03 tablet by ity of tablet 00:00: mouth 4 [place] 00 (four) Medical times Branch daily as needed for Abdominal pain. proMETHazin 2020-0 Yes [id number] 25mg Take 1 Univers e 25 mg 8-03 tablet by ity of tablet 00:00: mouth [place] 00 every 6 Medical (six) Branch hours as needed for Nausea and Vomiting (N/V). dicyclomine 2020-0 Yes [id number] 20mg Take 1 Univers 20 mg 8-03 tablet by ity of tablet 00:00: mouth 4 00 (four) Medical times Branch daily as needed for Abdominal pain. proMETHazin 2020-0 Yes [id number] 25mg Take 1 Univers e 25 mg 8-03 tablet by ity of tablet 00:00: mouth [place] 00 every 6 Medical (six) Branch hours as needed for Nausea and Vomiting (N/V). dicyclomine 2020-0 Yes [id number] 20mg Take 1 Univers 20 mg 8-03 tablet by ity of tablet 00:00: mouth 4 (four) Medical times Branch daily as needed for Abdominal pain. proMETHazin 2020-0 Yes [id number] 25mg Take 1 Univers e 25 mg 8-03 tablet by ity of tablet 00:00: mouth [place] 00 every 6 Medical (six) Branch hours as needed for Nausea and Vomiting (N/V). dicyclomine 2020-0 Yes [id number] 20mg Take 1 Univers 20 mg 8-03 tablet by ity of tablet 00:00: mouth (four) Medical times Branch daily as needed for Abdominal pain. proMETHazin 2020-0 Yes [id number] 25mg Take 1 Univers e 25 mg 8-03 tablet by ity of tablet 00:00: mouth [place] 00 every 6 Medical (six) Branch hours as needed for Nausea and Vomiting (N/V). dicyclomine 2020-0 Yes [id number] 20mg Take 1 Univers 20 mg 8-03 tablet by ity of tablet 00:00: mouth 4 00 (four) Medical times Branch daily as needed for Abdominal pain. proMETHazin 202-0 Yes [id number] 25mg Take 1 Univers e 25 mg 8-03 tablet by ity of tablet 00:00: mouth [place] 00 every 6 Medical (six) Branch hours as needed for Nausea and Vomiting (N/V). dicyclomine 2021-0 Yes [id number] 20mg Take 1 Univers 20 mg 8-03 tablet by ity of tablet 00:00: mouth 4 00 (four) Medical times Branch daily as needed for Abdominal pain. proMETHazin 2020-0 Yes [id number] 25mg Take 1 Univers e 25 mg 8-03 tablet by ity of tablet 00:00: mouth [place] 00 every 6 Medical (six) Branch hours as needed for Nausea and Vomiting (N/V). dicyclomine 2020-0 Yes [id number] 20mg Take 1 Univers 20 mg 8-03 tablet by ity of tablet 00:00: mouth 4 00 (four) Medical times Branch daily as needed for Abdominal pain. proMETHazin 2020-0 Yes [id number] 25mg Take 1 Univers e 25 mg 8-03 tablet by ity of tablet 00:00: mouth [place] 00 every 6 Medical (six) Branch hours as needed for Nausea and Vomiting (N/V). dicyclomine 2020-0 Yes [id number] 20mg Take 1 Univers 20 mg 8-03 tablet by ity of tablet 00:00: mouth 00 (four) Medical times Branch daily as needed for Abdominal pain. proMETHazin 2020-0 Yes [id number] 25mg Take 1 Univers e 25 mg 8-03 tablet by ity of tablet 00:00: mouth [place] 00 every 6 Medical (six) Branch hours as needed for Nausea and Vomiting (N/V). dicyclomine 2020-0 Yes [id number] 20mg Take 1 Univers 20 mg 8-03 tablet by ity of tablet 00:00: mouth (four) Medical times Branch daily as needed for Abdominal pain. proMETHazin 2020-0 Yes [id number] 25mg Take 1 Univers e 25 mg 8-03 tablet by ity of tablet 00:00: mouth [place] 00 every 6 Medical (six) Branch hours as needed for Nausea and Vomiting (N/V). dicyclomine 2021-0 Yes [id number] 20mg Take 1 Univers 20 mg 8-03 tablet by ity of tablet 00:00: mouth 4 00 (four) Medical times Branch daily as needed for Abdominal pain. proMETHazin 2020-0 Yes [id number] 25mg Take 1 Univers e 25 mg 8-03 tablet by ity of tablet 00:00: mouth [place] 00 every 6 Medical (six) Branch hours as needed for Nausea and Vomiting (N/V). dicyclomine 2021-0 Yes [id number] 20mg Take 1 Univers 20 mg 8-03 tablet by ity of tablet 00:00: mouth 4 00 (four) Medical times Branch daily as needed for Abdominal pain. proMETHazin 2020-0 Yes [id number] 25mg Take 1 Univers e 25 mg 8-03 tablet by ity of tablet 00:00: mouth [place] 00 every 6 Medical (six) Branch hours as needed for Nausea and Vomiting (N/V). dicyclomine 2020-0 Yes [id number] 20mg Take 1 Univers 20 mg 8-03 tablet by ity of tablet 00:00: mouth 00 (four) Medical times Branch daily as needed for Abdominal pain. proMETHazin 2020-0 Yes [id number] 25mg Take 1 Univers e 25 mg 8-03 tablet by ity of tablet 00:00: mouth [place] 00 every 6 Medical (six) Branch hours as needed for Nausea and Vomiting (N/V). dicyclomine 2020-0 Yes [id number] 20mg Take 1 Univers 20 mg 8-03 tablet by ity of tablet 00:00: mouth (four) Medical times Branch daily as needed for Abdominal pain. proMETHazin 2020-0 Yes [id number] 25mg Take 1 Univers e 25 mg 8-03 tablet by ity of tablet 00:00: mouth [place] 00 every 6 Medical (six) Branch hours as needed for Nausea and Vomiting (N/V). dicyclomine 2020-0 Yes [id number] 20mg Take 1 Univers 20 mg 8-03 tablet by ity of tablet 00:00: mouth (four) Medical times Branch daily as needed for Abdominal pain. proMETHazin 2020-0 Yes [id number] 25mg Take 1 Univers e 25 mg 8-03 tablet by ity of tablet 00:00: mouth [place] 00 every 6 Medical (six) Branch hours as needed for Nausea and Vomiting (N/V). dicyclomine 2021-0 Yes [id number] 20mg Take 1 Univers 20 mg 8-03 tablet by ity of tablet 00:00: mouth 4 (four) Medical times Branch daily as needed for Abdominal pain. proMETHazin 2021-0 Yes [id number] 25mg Take 1 Univers e 25 mg 8-03 tablet by ity of tablet 00:00: mouth [place] 00 every 6 Medical (six) Branch hours as needed for Nausea and Vomiting (N/V). dicyclomine Yes [id number] 20mg Take 1 Univers 20 mg 8-03 tablet by ity of tablet 00:00: mouth 4 [place] 00 (four) Medical times Branch daily as needed for Abdominal pain. proMETHazin Yes [id number] 25mg Take 1 Univers e 25 mg 8-03 tablet by ity of tablet 00:00: mouth [place] 00 every 6 Medical (six) Branch hours as needed for Nausea and Vomiting (N/V). dicyclomine Yes [id number] 20mg Take 1 Univers 20 mg 8-03 [...] o f mg tablet 20:05: every 8 [place] (eight) Medical hours as Branch needed. pantoprazol Yes 40mg Take 40 mg Univers e 7-24 by mouth ity of (PROTONIX) 20:05: daily. [place] 40 mg EC Medical tablet Branch ondansetron Yes 4mg Take 4 mg U nivers (ZOFRAN) 4 7-24 by mouth ity o f mg tablet 20:05: every 8 [place] (eight) Medical hours as Branch needed. pantoprazol [...] o f mg tablet 20:05: every 8 [place] [address] (eight) Medical hours as Branch needed. pantoprazol 2018-0 Yes 40mg Take 40 mg Univers e 7-24 by mouth ity of (PROTONIX) 20:05: daily. [place] 40 mg EC 01 Medical tablet Branch ondansetron 2018-0 Yes 4mg Take 4 mg U nivers (ZOFRAN) 4 7-24 by mouth ity o f mg tablet 20:05: every 8 [place] [address] (eight) Medical hours as Branch needed. pantoprazol 2018-0 Yes 40mg Take 40 mg Univers e 7-24 by mouth ity of (PROTONIX) 20:05: daily. [place] 40 mg EC 01 Medical tablet Branch ondansetron 2018-0 Yes 4mg Take 4 mg U nivers (ZOFRAN) 4 7-24 by mouth ity o f mg tablet 20:05: every 8 [place] [address] (eight) Medical hours as Branch needed. pantoprazol 2018-0 Yes 40mg Take 40 mg Univers e 7-24 by mouth ity of (PROTONIX) 20:05: daily. [place] 40 mg EC 01 Medical tablet Branch ondansetron 2018-0 Yes 4mg Take 4 mg U nivers (ZOFRAN) 4 7-24 by mouth ity o f mg tablet 20:05: every 8 [place] [address] (eight) Medical hours as Branch needed. pantoprazol 2018-0 Yes 40mg Take 40 mg Univers e 7-24 by mouth ity of (PROTONIX) 20:05: daily. [place] 40 mg EC 01 Medical tablet Branch ondansetron 2018-0 Yes 4mg Take 4 mg U nivers (ZOFRAN) 4 7-24 by mouth ity o f mg tablet 20:05: every 8 [place] [address] (eight) Medical hours as Branch needed. pantoprazol [...] 7-24 by mouth ity of 19:58: daily. [place] [address] Medical Branch loratadine Yes Take by Univ ers (CLARITIN 7-24 mouth ity of LIQUI-GEL) 19:58: daily. [place] 10 mg 14 Medical capsule Branch MULTIVITAMI Yes 1{tbl} Take 1 Tab Univers N ORAL 7-24 by mouth ity of 19:58: daily. [place] [address] Medical Branch loratadine Yes Take by Univ ers (CLARITIN 7-24 mouth ity of LIQUI-GEL) 19:58: daily. [place] 10 mg 14 Medical capsule Branch MULTIVITAMI Yes 1{tbl} Take 1 Tab Univers N ORAL 7-24 by mouth ity of 19:58: daily. [place] [address] Medical Branch loratadine Yes Take by Univ ers (CLARITIN 7-24 mouth ity of LIQUI-GEL) 19:58: daily. [place] 10 mg 14 Medical capsule Branch MULTIVITAMI Yes 1{tbl} Take 1 Tab Univers N ORAL 7-24 by mouth ity of 19:58: daily. [place] [address] Medical Branch loratadine 0 Yes Take by Univ ers (CLARITIN 7-24 mouth ity of LIQUI-GEL) 19:58: daily. [place] 10 mg 14 Medical capsule Branch MULTIVITAMI Yes 1{tbl} Take 1 Tab Univers N ORAL 7-24 by mouth ity of 19:58: daily. [address] Branch loratadine Yes Take by Univ ers (CLARITIN 7-24 mouth ity of LIQUI-GEL) 19:58: daily. [place] 10 mg 14 Medical capsule Branch MULTIVITAMI 2018-0 Yes 1{tbl} Take 1 Tab Univers N ORAL 7-24 by mouth ity of 19:58: daily. [place] 14 Medical Branch loratadine 2018-0 Yes Take by [place] [facility] ers (CLARITIN 7-24 mouth ity of LIQUI-GEL) 19:58: daily. [place] 10 mg 14 Medical capsule Branch MULTIVITAMI 2018-0 Yes 1{tbl} Take 1 Tab Univers N ORAL 7-24 by mouth ity of 19:58: daily. [place] [address] Medical Branch loratadine 2018-0 Yes Take by [place] [facility] ers (CLARITIN 7-24 mouth ity of [...] 7-24 by mouth ity of 14:58: daily. [place] [address] Medical Branch loratadine Yes Take by Univ ers (CLARITIN 7-24 mouth ity of LIQUI-GEL) 14:58: daily. [place] 10 mg 14 Medical capsule Branch MULTIVITAMI Yes 1{tbl} Take 1 Tab Univers N ORAL 7-24 by mouth ity of 14:58: daily. [place] [address] Medical Branch loratadine Yes Take by Univ ers (CLARITIN 7-24 mouth ity of LIQUI-GEL) 14:58: daily. [place] 10 mg 14 Medical capsule Branch MULTIVITAMI Yes 1{tbl} Take 1 Tab Univers N ORAL 7-24 by mouth ity of 14:58: daily. [place] [address] Medical Branch loratadine Yes Take by Univ ers (CLARITIN 7-24 mouth ity of LIQUI-GEL) 14:58: daily. [place] 10 mg 14 Medical capsule Branch MULTIVITAMI Yes 1{tbl} Take 1 Tab Univers N ORAL 7-24 by mouth ity of 14:58: daily. [place] [address] Medical Branch loratadine Yes Take by Univ ers (CLARITIN 7-24 mouth ity of LIQUI-GEL) 14:58: daily. [place] 10 mg 14 Medical capsule Branch MULTIVITAMI Yes 1{tbl} Take 1 Tab Univers N ORAL 7-24 by mouth ity of 14:58: daily. [place] [address] Medical Branch loratadine Yes Take by Univ ers (CLARITIN 7-24 mouth ity of LIQUI-GEL) 14:58: daily. [place] 10 mg 14 Medical capsule Branch proMETHazin [...] Filled Immunization Date Status Comments [facility] e Immunization Name Name SARS-COV-2 COVID-19 [...] Unive rsity of PFIZER VACCINE 00:00:00 [place] [facility] Branch SARS-COV-2 COVID-19 2021-05-24 Completed Unive rsity of PFIZER VACCINE 00:00:00 [place] [facility] Branch SARS-COV-2 COVID-19 2021-05-24 Completed Unive rsity of PFIZER VACCINE 00:00:00 [place] [facility] Branch SARS-COV-2 COVID-19 2021-05-24 Completed Unive rsity of PFIZER VACCINE 00:00:00 [facility] Branch SARS-COV-2 COVID-19 2021-05-24 Completed Unive rsity of PFIZER VACCINE 00:00:00 [place] [facility] Branch SARS-COV-2 COVID-19 2021-05-24 Completed Unive rsity of PFIZER VACCINE 00:00:00 [facility] Branch SARS-COV-2 COVID-19 2021-05-24 Completed Unive rsity of PFIZER VACCINE 00:00:00 [place] [facility] Branch SARS-COV-2 COVID-19 2021-05-24 Completed Unive rsity of PFIZER VACCINE 00:00:00 [facility] Branch SARS-COV-2 COVID-19 2021-05-24 Completed Unive rsity of PFIZER VACCINE 00:00:00 [facility] Branch SARS-COV-2 COVID-19 2021-05-24 Completed [...] of PFIZER VACCINE 00:00:00 [facility] Branch SARS-COV-2 COVID-19 2021-05-03 Completed Unive rsity [...] 20:00:00 142 mm[Hg] Univer sity of pressure [facility] Diastolic blood 2022-12-11 20:00:00 90 mm[Hg] Unive rsity of pressure [facility] Respiratory rate 2022-12-11 20:00:00 24 /min Univ ers[facility] [place] [facility] Heart rate 2022-12-11 18:00:00 101 /min [facility] [place] [facility] Oxygen saturation in 2022-12-11 18:00:00 93 /min University of Arterial blood by [facility] kwame Pulse oximetry Branch BMI 2022-12-11 13:55:00 35.43 kg/m2 [facility] [place] [facility] Body temperature 2022-12-11 13:55:00 37.22 Radha [facility] [place] [facility] Body weight 2022-12-11 13:55:00 90.719 kg [facility] [place] [facility] Systolic blood 2022-11-18 05:34:00 152 mm[Hg] Univer sity of pressure [place] [facility] Diastolic blood 2022-11-18 05:34:00 98 mm[Hg] Unive rsity of pressure [place] [facility] Heart rate 2022-11-18 05:34:00 88 /min [facility] [place] [facility] Respiratory rate 2022-11-18 05:34:00 18 /min Univ [facility] [place] [facility] Oxygen saturation in 2022-11-18 05:34:00 97 /min University of Arterial blood by [facility] Pulse oximetry Branch Body temperature 2022-11-17 22:28:00 37.06 Radha [facility] [place] [facility] Body height 2022-11-17 22:28:00 160 cm [facility] [place] [facility] Body weight 2022-11-17 22:28:00 99.791 kg [facility] [place] [facility] BMI 2022-11-17 22:28:00 38.97 kg/m2 [facility] [place] [facility] Heart rate 2022-08-02 02:02:00 108 /min [facility] [place] [facility] Respiratory rate 2022-08-02 02:02:00 28 /min [facility] [place] [facility] Oxygen saturation in 2022-08-02 02:02:00 97 /min University of Arterial blood by [facility] Pulse oximetry Branch Body temperature 2022-08-02 01:00:00 36.44 Radha [facility] Systolic blood 2022-08-01 23:29:00 145 mm[Hg] [facility] Diastolic blood 2022-08-01 23:29:00 103 mm[Hg] [facility] Body weight 2022-08-01 09:16:00 97.977 kg [facility] BMI 2022-08-01 09:16:00 38.26 kg/m2 [facility] Body height 2022-07-31 21:54:00 160 cm [facility] Systolic blood 2022-05-08 16:40:00 146 mm[Hg] [facility] Diastolic blood 2022-05-08 16:40:00 96 mm[Hg] [facility] Heart rate 2022-05-08 16:40:00 112 /min [facility] Body temperature 2022-05-08 16:40:00 36.78 Radha [facility] Respiratory rate 2022-05-08 16:40:00 18 /min [facility] Oxygen saturation in 2022-05-08 16:40:00 94 /min [facility] blood by [place] [employer] [facility] Body height 2022-05-05 23:44:00 160 cm [facility] Body weight 2022-05-05 23:37:00 81.647 kg [facility] BMI 2022-05-05 23:37:00 31.89 kg/m2 [facility] Systolic blood 2022-04-15 18:52:00 104 mm[Hg] [facility] Diastolic blood 2022-04-15 18:52:00 82 mm[Hg] [facility] Heart rate 2022-04-15 18:52:00 114 /min [facility] Oxygen saturation in 2022-04-15 18:52:00 98 /min [facility]ial blood by [place] [employer] [facility] Body temperature 2022-04-15 16:14:00 36.28 Radha [facility] Respiratory rate 2022-04-15 16:14:00 17 /min [facility] Body height 2022-04-13 21:08:00 160 cm [facility] Body weight 2022-04-13 21:08:00 91.173 kg [facility] BMI 2022-04-13 21:08:00 35.61 kg/m2 [facility] Systolic blood 2021-11-23 21:30:00 132 mm[Hg] [facility] Diastolic blood 2021-11-23 21:30:00 76 mm[Hg] [facility] Heart rate 2021-11-23 21:30:00 95 /min [facility] Respiratory rate 2021-11-23 21:30:00 13 /min [facility] Oxygen saturation in 2021-11-23 21:30:00 97 /min [facility] [place] [employer] [facility] Body temperature 2021-11-23 20:15:00 37.56 Radha [facility] Systolic blood 2021-03-17 03:00:00 117 mm[Hg] [facility] Diastolic blood 2021-03-17 03:00:00 76 mm[Hg] [facility] Heart rate 2021-03-17 03:00:00 104 /min [facility] Respiratory rate 2021-03-17 03:00:00 28 /min [facility] Oxygen saturation in 2021-03-17 03:00:00 96 /min [facility] [place] [employer] [facility] Body temperature 2021-03-17 00:39:00 37.11 Radha [facility] Body height 2021-03-17 00:39:00 160 cm [facility] Body weight 2021-03-17 00:39:00 58.968 kg [facility] BMI 2021-03-17 00:39:00 23.03 kg/m2 [facility] Systolic blood 2021-03-15 00:14:00 149 mm[Hg] [facility] Diastolic blood 2021-03-15 00:14:00 78 mm[Hg] [facility] Heart rate 2021-03-15 00:14:00 100 /min [facility] Body temperature 2021-03-15 00:14:00 37.33 Radha [facility] Respiratory rate 2021-03-15 00:14:00 24 /min [facility] Body height 2021-03-15 00:14:00 160 cm [facility] Body weight 2021-03-15 00:14:00 58.968 kg [facility] BMI 2021-03-15 00:14:00 23.03 kg/m2 [facility] Oxygen saturation in 2021-03-15 00:14:00 98 /min [facility] of Arterial blood by [facility] Pulse oximetry Branch Systolic blood 2021-02-19 18:00:00 131 mm[Hg] [facility] Diastolic blood 2021-02-19 18:00:00 80 mm[Hg] [facility]ive [facility]ity of [facility] Heart rate 2021-02-19 18:00:00 83 /min [facility] Respiratory rate 2021-02-19 18:00:00 18 /min [facility] O[facility] saturation in 2021-02-19 18:00:00 100 /min [facility] Arterial blood by [facility] Pulse oximetry Branch Body temperature 2021-02-19 15:47:00 37 Radha [facility] Body height 2021-02-19 15:47:00 160 cm [facility] Body weight 2021-02-19 15:47:00 58.968 kg [facility] BMI 2021-02-19 15:47:00 23.03 kg/m2 [facility] Respiratory rate 2022-08-03 14:40:00 18 /min [facility] Systolic blood 2022-08-03 12:13:00 112 mm[Hg] [facility] Diastolic blood 2022-08-03 12:13:00 77 mm[Hg] [facility] 2022-08-03 12:13:00 115 /min [facility] Oxygen saturation in 2022-08-03 12:13:00 93 /min [facility] Arterial blood by Medical nter Pulse oximetry Body temperature 2022-08-03 12:00:00 36.83 Radha [facility] Body height 2022-08-02 21:52:00 160.2 cm [facility] Body weight 2022-08-02 21:52:00 95 kg [facility] BMI 2022-08-02 21:52:00 37.02 kg/m2 [facility] BP Systolic 2022-07-24 13:31:00 136 [...] CT HEAD WO CONTRAST 2022-12-11 Alfonso Mulligan [facility] o f 18:36:49 [facility] URINE DRUG (IMMUNOASSAY) - 2022-12-11 Alfonso Mulligan Unive rsity of COMPREHENSIVE DRUG SCREEN 17:13:00 [facility] URINALYSIS 2022-12-11 Alfonso Mulligan [facility] of 17:13:[address] [facility] [address] CHEST PULMONARY ANGIOGRAM 2022-12-[address] [facility] versity of 16:26:39 [facility] MAGNESIUM 2022-12-11 Alfonso Mulligan [facility] of 14:57:00 [facility] COMP. METABOLIC PANEL ([id number]) 2022-12-11 Alfonso Mulligan Un iversity of 14:57:00 [facility] D-DIMER 2022-12-11 Alfonso Mulligan [facility] of 14:15:00 [facility] XR CHEST 1 VW 2022-12-11 Alfonso Mulligan [facility] of 14:10:26 [facility] TROPONIN I 2022-12-11 Alfonso Mulligan [facility] of 14:02:00 [facility] CBC WITH DIFF 2022-12-11 Alfonso Mulligan [facility] of 14:02:00 [facility] N-TERMINAL PRO-BNP 2022-12-11 Alfonso Mulligan [facility] of 14:02:00 [facility] HB ECG ROUTINE & RHYTHM STRIP 2022-12-11 JennyAlfonso Un iversity of 14:01:08 [facility] CONSENT/REFUSAL FOR DIAGNOSIS 2022-12-11 Doctor Unassigned, University of AND TREATMENT 13:52:01 [place] [facility] ECG 12-LEAD 2022-08-03 Unknown, Hl7 Doctor [facility] 05:03:32 [facility] ECG 12-LEAD 2022-08-03 Unknown, Hl7 [facility] 05:03:32 [facility] LIPID PANEL 2022-08-[address] [facility] 21:14:00 [facility] TSH/FREE T4 IF INDICATED 2022-08-[address] [facility] 21:14:00 [facility] VITAMIN B12 2022-08-[address] [facility] 21:14:00 [facility] HEMOGLOBIN A1C 2022-08-[address] [facility] 21:14:00 [facility] COMPREHENSIVE METABOLIC PANEL 2022-08-02 Donal[facility] 21:14:00 [facility] CBC W/PLT COUNT & AUTO 2022-08-[address] [facility] DIFFERENTIAL 21:14:00 [facility] RPR 2022-08-[address] [facility] 21:14:00 [facility] HC LAB HIV-1 AG W/HIV-1&2 AB 2022-08-[address] [facility] 21:14:00 [facility] C-REACTIVE PROTEIN 2022-08-[address] [facility] 21:14:00 [facility] CBC W/PLT COUNT & AUTO 2022-08-[address] [facility] DIFFERENTIAL 21:14:00 [facility] EKG-SCANNED 2022-08-[address] [facility] 00:00:00 Scanning [facility] CT HEAD WO CONTRAST 2022-08-01 Lorenza Her [facility] o f 23:52:15 [facility] GALV ONLY - INFLUENZA A B RSV 2022-08-01 Letitia Chambers Un iversity of PCR 18:28:00 [facility] TRANSTHORACIC ECHO (TTE) 2022-08-01 Kylee Diego ity of COMPLETE W/ CONTRAST 14:42:00 [facility] MAGNESIUM 2022-08-01 Lorenza Her [facility] of 10:42:00 [facility] BASIC METABOLIC PANEL (NA, K, 2022-08-01 Lorenza Her Un iversity of CL, CO2, GLUCOSE, BUN, 10:42:00 [facility] ical CREATININE, [place]) Branch CBC WITH DIFF 2022-08-01 Lorenza Her [place] of 10:42:00 [facility] N-TERMINAL PRO-BNP 2022-08-01 [facility] 10:42[facility]00 [facility] POCT GLUCOSE (AUTOMATED) 2022-08-01 Lorenza Her [facility] ity of 06:56:00 [facility] CRITICAL CARE 2022-07-31 Sav Rondon [facility] of 22:31:36 [facility] URINALYSIS 2022-07-31 Sav Rondon [facility] of 20:52:00 [facility] URINE DRUG (IMMUNOASSAY) - 2022-07-31 Sav Rondon [facility] rsity of COMPREHENSIVE DRUG SCREEN W/O 20:52[place]00 [place] [facility] REFLEX Branch XR CHEST 1 VW 2022-07-31 Sav Rondon of 18:45:17 [facility] LIPASE 2022-07-31 Sav Rondon [facility] of 17:58:00 [facility] TROPONIN I 2022-07-31 Sav Rondon [facility] of 17:58:00 [facility] COMP. METABOLIC PANEL ([id number]) 2022-07-31 Sav Rondon iversity of 17:58:00 [facility] CBC WITH DIFF 2022-07-31 Sav Rondon of 17:58:00 [facility] PROTHROMBIN TIME / INR 2022-07-31 Sav Rondonit y of 17:58:00 [facility] ACTIVATED PARTIAL THRMPLAS 2022-07-31 Sav Rondon [facility] rsity of DAVID 17:58:00 [facility] N-TERMINAL PRO-BNP 2022-07-31 Sav Rondon [facility] of 17:58:00 [facility] HB ECG ROUTINE & RHYTHM STRIP 2022-07-31 Sav Rondon iversity of 17:46:28 [facility] NOTICE OF PRIVACY PRACTICES 2022-07-31 Doctor Unassigned, U niversity of 17:35:38 [place] [facility] CONSENT/REFUSAL FOR DIAGNOSIS 2022-07-31 Doctor Unassigned, University of AND TREATMENT 17:35:13 [place] [facility] PHOSPHORUS 2022-05-08 Shefali [facility] of 05:51:00 [facility] MAGNESIUM 2022-05-08 Shefali [facility] of 05:51:00 [facility] BASIC METABOLIC PANEL (NA, K, 2022-05-08 Shefali, Azeem U niversity of CL, CO2, GLUCOSE, BUN, 05:51:00 [place] [facility] CREATININE, [place]) Branch CBC WITH DIFF 2022-05-08 Shefali [facility] of 05:51:00 [facility] BASIC METABOLIC PANEL (NA, K, 2022-05-07 [facility] of CL, CO2, GLUCOSE, BUN, 07:09:00 [facility] ica CREATININE, [place]) Branch CBC WITH DIFF 2022-05-07 [facility] of 07:09:00 [facility] POCT GLUCOSE (AUTOMATED) 2022-05-07 Brandyn Mcfarlane ity of 01:16:00 [facility] HB ABO GROUPING 2022-05-06 [facility] of 05:07:00 [facility] BASIC METABOLIC PANEL (NA, K, 2022-05-06 Shefali Azeem U niversity of CL, CO2, GLUCOSE, BUN, 05:04:00 [facility] ica CREATININE, [place]) Branch CBC WITH DIFF 2022-05-06 Shefali [facility] of 05:04:00 [facility] KEPPRA (LEVETIRACETAM) 2022-05-06 Shefali [facility] ty of 05:04:00 [facility] MR LUMBAR SPINE WO CONTRAST 2022-05-06 Kneedler, Ender U niversity of 02:54:37 [place] [facility] ELECTROENCEPHALOGRAM 2022-05-06 [facility] ty of 00:00:00 [facility] BASIC METABOLIC PANEL (NA, K, 2022-05-05 paulette Freeman [facility] of CL, CO2, GLUCOSE, BUN, 07:57:00 [facility] ica CREATININE, CA) Branch CBC WITH DIFF 2022-05-05 [facility] of 07:57:00 [facility] PROTHROMBIN TIME / INR 2022-05-05 [facility] ersity of 07:57:00 [facility] ACTIVATED PARTIAL THRMPLAS 2022-05-05 [facility] of DAVID 07:57:00 [facility] FIBRINOGEN 2022-05-05 [facility] of 07:57:00 [facility] EMERGENCY SERVICES AGREEMENTS 2022-05-04 Doctor Unassigned, University of AND AUTHORIZATIONS 05:01:00 [place] [facility] VITAMIN D, 25-OH 2022-04-15 Tre Sen Nubieber of 16:53:00 [facility] MR THORACIC SPINE WO CONTRAST 2022-04-15 Soumya Chua Un iversity of 11:56:19 [facility] MR CERVICAL SPINE WO CONTRAST 2022-04-15 Soumya Chua Un iversity of 11:20:00 [facility] BASIC METABOLIC PANEL (NA, K, 2022-04-15 Charmaine Morataya Un iversity of CL, CO2, GLUCOSE, BUN, 10:36:00 [place] [facility] CREATININE, [place]) Branch TEST, URINE 2022-04-15 [facility] of 04:39:00 [facility] URINE DRUG (IMMUNOASSAY) - 2022-04-15 [facility] rsity of COMPREHENSIVE DRUG SCREEN 04:39:00 [facility] URINALYSIS 2022-04-15 [facility] of 04:39:00 [facility] TRANSTHORACIC ECHO (TTE) 2022-04-14 [facility] of COMPLETE W/ CONTRAST 16:37:03 [facility] KEPPRA (LEVETIRACETAM) 2022-04-14 [facility] y of 15:30:00 [facility] MAGNESIUM 2022-04-14 [facility] of 10:03:00 [facility] BASIC METABOLIC PANEL (NA, K, 2022-04-14 John Chuaena Un iversity of CL, CO2, GLUCOSE, BUN, 10:03:00 [place] [facility] CREATININE, [place]) Branch MR LUMBAR SPINE WO CONTRAST 2022-04-14 Harshil [facility] ersity of 02:48:12 [facility] MR STROKE BRAIN WO CONTRAST 2022-04-14 Harshil Soumya [facility] ersity of 02:29:[address] [facility] [address] STROKE ANGIOGRAM HEAD 2022-04-13 Sapna Vargas [facility] ersity of 18:40:[address] [facility] [address] STROKE ANGIOGRAM NECK 2022-04-13 Sapna Vargas [facility] ersity of 18:40:00 [facility] CT STROKE HEAD WO CONTRAST 2022-04-13 Sapna Vargas Un iversity of 18:36:00 [facility] TROPONIN I 2022-04-13 Sapna Vargas [facility] of 18:17:00 [facility] THYROID STIMULATING HORMONE 2022-04-13 Harshil [facility] ersity of 18:17:00 [facility] BASIC METABOLIC PANEL (NA, K, 2022-04-13 Sapna Vargas [place] of CL, CO2, GLUCOSE, BUN, 18:17:00 [facility] ical CREATININE, [place]) Branch LIPID PANEL ([id number])(TOTAL 2022-04-13 Harshil [facility] sity of CHOLESTEROL, TRIGLYCERIDES, 18:17:00 [facility] HDL) Branch CBC WITHOUT DIFF 2022-04-13 Sapna Vargas [facility] o f 18:17:00 [facility] GLYCOSYLATED HEMOGLOBIN (A1C) 2022-04-13 Soumya Chua Un iversity of 18:17:00 [facility] PROTHROMBIN TIME / INR 2022-04-13 Sapna Vargas [facility] sity of 18:17:00 [facility] ACTIVATED PARTIAL THRMPLAS 2022-04-13 Sapna Vargas iversity of DAVID 18:17:00 [facility] COVID-19 (ID NOW RAPID 2022-04-13 Sapna Vargas [facility] sity of TESTING) 18:17:00 [facility] LAB ONLY COVID INTERPRETATION 2022-04-13 Sapna Vargas [facility] 18:17:00 [facility] HB ECG ROUTINE & RHYTHM STRIP 2022-04-13 Sapna Vargas [facility] 18:15:49 [facility] CONSENT/REFUSAL FOR DIAGNOSIS 2022-04-13 Doctor Unassigned, University of AND TREATMENT 18:05:14 [facility] [facility] HOSPITAL ADMISSION 2022-04-13 Doctor Unassigned, [place] of 05:01:00 [place] [facility] SARS-COV-2 COVID-19 VACCINE 2022-02-19 Doctor Unassigned, U niversity of 12 YRS+,0.3ML,IM (PFIZER - 15:21:12 [place] [facility] URINE DRUG (IMMUNOASSAY) - 2021-11-23 [facility] U niversity of COMPREHENSIVE DRUG SCREEN W/O 21:21[place]00 [place] [facility] CT HEAD WO CONTRAST 2021-11-23 [facility] ty of 20:58:00 [facility] POCT TEST 2021-11-23 [facility] ty of 20:46:00 [facility] URINALYSIS 2021-11-23 [facility] o f 20:43:00 [facility] LIPASE 2021-11-23 [facility] o f 20:27:00 [facility] TROPONIN I 2021-11-23 [facility] o f 20:27:00 [facility] COMP. METABOLIC PANEL ([id number]) 2021-11-23 [facility] of 20:27:00 [facility] CBC WITH DIFF 2021-11-23 [facility] o f 20:27:00 [facility] POCT GLUCOSE (AUTOMATED) 2021-11-23 Doctor Unassigned, Univ ersity of 20:15:00 [place] [facility] SARS-COV-2 COVID-19 2021-05-24 Doctor Unassigned, Universit y of VACCINE,0.3ML,IM (PFIZER) 14:23:12 [place] [facility] SARS-COV-2 COVID-19 2021-05-03 Doctor Unassigned, Universit y of VACCINE,0.3ML,IM (PFIZER) 14:59:29 [place] [facility] EMERGENCY SERVICES AGREEMENTS 2021-04-16 Doctor Unassigned, [place] of AND AUTHORIZATIONS 05:01:00 [place] [facility] URINALYSIS 2021-03-17 Fabrice Chakraborty [facility] of 03:09:00 [facility] XR CHEST 1 VW 2021-03-17 Fabrice Chakraborty [facility] of 01:45:07 [facility] TROPONIN I 2021-03-17 [facility] 01:35:00 [facility] COMP. METABOLIC PANEL ([id number]) 2021-03-17 Fabrice Chakraborty Un iversity of 01:35:00 [facility] CBC WITH DIFF 2021-03-17 [facility] of 01:35:00 [facility] N-TERMINAL PRO-BNP 2021-03-17 [facility] of 01:35:00 [facility] COVID-19 (ID NOW RAPID 2021-03-17 Brian Ray [facility] y of TESTING) 00:58:00 [facility] CONSENT/REFUSAL FOR DIAGNOSIS 2021-03-17 Doctor Unassigned, [facility] 00:32:59 [place] [facility] COVID-19 (ID NOW RAPID 2021-02-19 Anali Patel [facility] y of TESTING) 17:04:[address] [facility] [address] ABDOMEN PELVIS W CONTRAST 2021-02-19 Anali Patel Uni versity of 16:41:18 [facility] LIPASE 2021-02-19 Anali Patel [facility] of 15:58:00 [facility] COMP. METABOLIC PANEL ([id number]) 2021-02-19 Anali Patel Un iversity of 15:58:00 [facility] CBC WITH DIFF 2021-02-19 Anali Patel [facility] of 15:58:00 [facility] URINALYSIS 2021-02-19 Anali Patel [facility] of 15:58:00 [facility] NOTICE OF PRIVACY PRACTICES 2021-02-19 Doctor Unassjulee, U niversity of 15:30:46 [place] [facility] CONSENT/REFUSAL FOR DIAGNOSIS 2021-02-19 Doctor Unassigned, [facility] 15:30:30 [facility] [facility] Plan of Care Planned Activity Planned Date Details Comments Source Future Scheduled 2025-08-02 Lipid panel (procedure) [facility] Test 00:00:00 [code = 06996288] Medical Ce nter Future Scheduled 2025-08-02 Lipid panel (procedure) [facility] Test 00:00:00 [code = 72252353] Medical Ce nter Future Scheduled 2025-08-02 Lipid panel (procedure) [facility] Test 00:00:00 [code = [id number]] Medical Ce nter Future Scheduled 2025-08-02 Lipid panel (procedure) [facility] Test 00:00:00 [code = 94762764] Medical Ce nter Future Scheduled 2025-08-02 Lipid panel (procedure) [facility] Test 00:00:00 [code = 22409344] Medical Ce nter Future Scheduled 2025-08-02 Lipid panel (procedure) [facility] Test 00:00:00 [code = [id number]] Medical Ce nter Future Scheduled 2025-08-02 Lipid panel (procedure) [facility] Test 00:00:00 [code = 85069188] Medical Ce nter Future Scheduled 2025-08-02 Lipid panel (procedure) [facility] Test 00:00:00 [code = 51912687] Medical Ce nter Future Scheduled 2025-08-02 Lipid panel (procedure) [facility] Test 00:00:00 [code = 20324715] Medical Ce nter Future Scheduled 2025-08-02 Lipid panel (procedure) [facility] Test 00:00:00 [code = 63829691] Medical Ce nter Future Scheduled 2025-08-02 Lipid panel (procedure) [facility] Test 00:00:00 [code = 71081223] Medical Ce nter Future Scheduled 2025-08-02 Lipid panel (procedure) [facility] 00:00:00 [code = 30444907] Medical Ce nter Future Scheduled 2025-08-02 Lipid panel (procedure) [facility] 00:00:00 [code = 32229086] Medical Ce nter Future Scheduled 2025-08-02 Lipid panel (procedure) [facility] 00:00:00 [code = 12853274] Medical Ce nter Future Scheduled 2023-03-20 INFLUENZA VACCINE ([facility] [...] Me [facility]ical [facility] (#1)] Future Scheduled 2023-03-20 Influenza Vaccine (#1) C [...] cervix Medical C enter (procedure) [code = 356516055] Future Scheduled 1993-01-14 Screening for malignant [facility] Test 00:00:00 neoplasm of cervix Medical C enter (procedure) [code = 301836547] Future Scheduled 1993-01-14 Screening for malignant [facility] Test 00:00:00 neoplasm of cervix Medical C enter (procedure) [code = 361787507] Future Scheduled 1993-01-14 Screening for malignant [facility] Test 00:00:00 neoplasm of cervix Medical C enter (procedure) [code = 875179725] Future Scheduled 1993-01-14 Screening for malignant [facility] Test 00:00:00 neoplasm of cervix Medical C enter (procedure) [code = 838454899] Future Scheduled 1993-01-14 Screening for malignant [facility] Test 00:00:00 neoplasm of cervix Medical C enter (procedure) [code = 571543460] Future Scheduled 1993-01-14 Screening for malignant [facility] Test 00:00:00 neoplasm of cervix Medical C enter (procedure) [code = 394252125] Future Scheduled 1993-01-14 Screening for malignant [facility] Test 00:00:00 neoplasm of cervix Medical C enter (procedure) [code = 714557766] Future Scheduled 1993-01-14 Screening for malignant [facility] Test 00:00:00 neoplasm of cervix Medical C enter (procedure) [code = 202008746] Future Scheduled 1993-01-14 Screening for malignant [facility] Test 00:00:00 neoplasm of cervix Medical C enter (procedure) [code = 345846768] Future Scheduled 1993-01-14 Screening for malignant [facility] Test 00:00:00 neoplasm of cervix Medical C enter (procedure) [code = 098446244] Future Scheduled 1993-01-14 Screening for malignant [facility] Test 00:00:00 neoplasm of cervix Medical C enter (procedure) [code = 645621386] Future Scheduled 1993-01-14 Screening for malignant [facility] Test 00:00:00 neoplasm of cervix Medical C enter (procedure) [code = 235354201] Future Scheduled 1993-01-14 Screening for malignant [facility] Test 00:00:00 neoplasm of cervix Medical C enter (procedure) [code = 018699292] Future Scheduled 1991-01-14 DTAP/TDAP/TD VACCINES (1 [facility] [...] screening Medical Cent er (procedure) [code = 124760965] Future Scheduled 1987-01-[address] [facility] virus screening [facility] (procedure) [code = 234252766] Future Scheduled [address] [...] breast Medical C enter (procedure) [code = 439912975] Future Scheduled 1972 CT Colonography (combo) [facility] 00:00:00 [code = CT Colonography [facility] (combo)] Future Scheduled 1972 Screening for malignant [facility] 00:00:00 neoplasm of colon Medical Ce nter (procedure) [code = 169264365] Future Scheduled 1972 Screening for malignant [facility] 00:00:00 neoplasm of colon Medical Ce nter (procedure) [code = 847651834] Future Scheduled 1972 Screening for malignant [facility] 00:00:00 neoplasm of colon Medical Ce nter (procedure) [code = 072706709] Future Scheduled 1972 Screening for malignant [facility] 00:00:00 neoplasm of colon Medical Ce nter (procedure) [code = 172378092] Future Scheduled 1972 Sigmoidoscopy [code = [facility]] Medical Cente r Future Scheduled 1972 Screening for malignant [facility] 00:00:00 neoplasm of breast Medical C enter (procedure) [code = 597180465] Future Scheduled 1972 CT Colonography (combo) [facility] 00:00:00 [code = [facility] ([facility] Future Scheduled 1972 Screening for malignant [facility] 00:00:00 neoplasm of colon Medical Ce [facility]ter (procedure) [code = 858949638] Future Scheduled 1972 Screening for malignant [facility] 00:00:00 neoplasm of colon Medical Ce [facility]ter (procedure) [code = 568827200] Future Scheduled 1972 Screening for malignant [facility] 00:00:00 neoplasm of colon Medical Ce nter (procedure) [code = 312038507] Future Scheduled 1972 Screening for malignant [facility] 00:00:00 neoplasm of colon Medical Ce nter (procedure) [code = 016978077] Future Scheduled 1972 Sigmoidoscopy [facility]code = [facility]] Medical Cent[facility] r Future Scheduled 1972 Screening for malignant [facility] 00:00:00 neoplasm of breast Medical C enter (procedure) [code = 875303413] Future Scheduled 1972 CT Colonography (combo) [facility] 00:00:00 [code = CT [facility] ([facility])] Future Scheduled 1972 Screening for malignant [facility] 00:00:00 neoplasm of colon Medical Ce nter (procedure) [code = 841754320] Future Scheduled 1972 Screening for malignant [facility] 00:00:00 neoplasm of colon Medical Ce nter (procedure) [code = 828104250] Future Scheduled 1972 Screening for malignant [facility] 00:00:00 neoplasm of colon Medical Ce nter (procedure) [code = 981859141] Future Scheduled 1972 Screening for malignant [facility] 00:00:00 neoplasm of colon Medical Ce nter (procedure) [code = 746439935] Future Scheduled 1972 Sigmoidoscopy [facility]code = [facility]] Medical Cente r Future Scheduled 1972 Screening for malignant [facility] 00:00:00 neoplasm of breast Medical C enter (procedure) [code = 564322689] Future Scheduled 1972 CT Colonography (combo) [facility] 00:00:00 [code = CT [facility] ([facility])] Future Scheduled 1972 Screening for malignant [facility] 00:00:00 neoplasm of colon Medical Ce nter (procedure) [code = 662591842] Future Scheduled 1972 Screening for malignant [facility] 00:00:00 neoplasm of colon Medical Ce nter (procedure) [code = 950889559] Future Scheduled 1972 Screening for malignant [facility] 00:00:00 neoplasm of colon Medical Ce nter (procedure) [code = 604156214] Future Scheduled 1972 Screening for malignant [facility] 00:00:00 neoplasm of colon Medical Ce nter (procedure) [code = 132089433] Future Scheduled 1972 Sigmoidoscopy [facility]code = [facility]] Medical Cente r Future Scheduled 1972 Screening for malignant [facility] 00:00:00 neoplasm of breast Medical C enter (procedure) [code = 298344385] Future Scheduled 1972 CT Colonography (combo) [facility] 00:00:00 [code = CT [facility] ([facility])] Future Scheduled 1972 Screening for malignant [facility] 00:00:00 neoplasm of colon Medical Ce nter (procedure) [code = 344762302] Future Scheduled 1972 Screening for malignant [facility] 00:00:00 neoplasm of colon Medical Ce nter (procedure) [code = 615516542] Future Scheduled 1972 Screening for malignant [facility] 00:00:00 neoplasm of colon Medical Ce nter (procedure) [code = 491052519] Future Scheduled 1972 Screening for malignant [facility] 00:00:00 neoplasm of colon Medical Ce nter (procedure) [code = 056973901] Future Scheduled 1972 Sigmoidoscopy [facility]code [facility]] Medical Cente r Future Scheduled 1972 Screening for malignant [facility] 00:00:00 neoplasm of breast Medical C enter (procedure) [code = 827470305] Future Scheduled 1972 CT Colonography (combo) [facility] 00:00:00 [code = CT [facility] ([facility])] Future Scheduled 1972 Screening for malignant [facility] 00:00:00 neoplasm of colon Medical Ce nter (procedure) [code = 265479464] Future Scheduled 1972 Screening for malignant [facility] 00:00:00 neoplasm of colon Medical Ce nter (procedure) [code = 823496700] Future Scheduled 1972 Screening for malignant [facility] 00:00:00 neoplasm of colon Medical Ce [facility]ter (procedure) [code = 682850247] Future Scheduled 1972 Screening for malignant [facility] 00:00:00 neoplasm of colon Medical Ce nter (procedure) [code = 513294635] Future Scheduled 1972 Sigmoidoscopy [facility]code [facility]] Medical Cente r Future Scheduled 1972 Screening for malignant [facility] 00:00:00 neoplasm of breast Medical C enter (procedure) [code = 989708360] Future Scheduled 1972 CT Colonography (combo) [facility] 00:00:00 [code = CT [facility] ([facility])] Future Scheduled 1972 Screening for malignant [facility] 00:00:00 neoplasm of colon Medical Ce nter (procedure) [code = 415693968] Future Scheduled 1972 Screening for malignant [facility] 00:00:00 neoplasm of colon Medical Ce nter (procedure) [code = 266708693] Future Scheduled 1972 Screening for malignant [facility] 00:00:00 neoplasm of colon Medical Ce nter (procedure) [code = 550931483] Future Scheduled 1972 Screening for malignant [facility] 00:00:00 neoplasm of colon Medical Ce nter (procedure) [code = 883229150] Future Scheduled 1972 Sigmoidoscopy [code = [facility]] Medical Cente r Future Scheduled 1972 Screening for malignant [facility] 00:00:00 neoplasm of breast Medical C enter (procedure) [code = 053869946] Future Scheduled 1972 CT Colonography (combo) [facility] 00:00:00 [code = CT [facility] ([facility])] Future Scheduled 1972 Screening for malignant [facility] 00:00:00 neoplasm of colon Medical Ce nter (procedure) [code = 307715243] Future Scheduled 1972 Screening for malignant [facility] 00:00:00 neoplasm of colon Medical Ce nter (procedure) [code = 965432707] Future Scheduled 1972 Screening for malignant [facility] 00:00:00 neoplasm of colon Medical Ce nter (procedure) [code = 106741254] Future Scheduled 1972 Screening for malignant [facility] 00:00:00 neoplasm of colon Medical Ce nter (procedure) [code = 100931838] Future Scheduled 1972 Sigmoidoscopy [code = [facility]] Medical Cente r Future Scheduled 1972 Screening for malignant [facility] 00:00:00 neoplasm of breast Medical C enter (procedure) [code = 973175124] Future Scheduled 1972 CT Colonography (combo) [facility] 00:00:00 [code = CT [facility] ([facility])] Future Scheduled 1972 Screening for malignant [facility] 00:00:00 neoplasm of colon Medical Ce nter (procedure) [code = 660915455] Future Scheduled 1972 Screening for malignant [facility] 00:00:00 neoplasm of colon Medical Ce nter (procedure) [code = 959766163] Future Scheduled 1972 Screening for malignant [facility] 00:00:00 neoplasm of colon Medical Ce nter (procedure) [code = 928206956] Future Scheduled 1972 Screening for malignant [facility] 00:00:00 neoplasm of colon Medical Ce nter (procedure) [code = 299419818] Future Scheduled 1972 Sigmoidoscopy [code = [facility]] Medical Cente r Future Scheduled 1972 Screening for malignant [facility] 00:00:00 neoplasm of breast Medical C enter (procedure) [code = 284564983] Future Scheduled 1972 CT Colonography (combo) [facility] 00:00:00 [code = CT [facility] ([facility])] Future Scheduled 1972 Screening for malignant [facility] 00:00:00 neoplasm of colon Medical Ce nter (procedure) [code = 984341153] Future Scheduled 1972 Screening for malignant [facility] 00:00:00 neoplasm of colon Medical Ce nter (procedure) [code = 672392177] Future Scheduled 1972 Screening for malignant [facility] 00:00:00 neoplasm of colon Medical Ce nter (procedure) [code = 903476099] Future Scheduled 1972 Screening for malignant [facility] 00:00:00 neoplasm of colon Medical Ce nter (procedure) [code = 863369808] Future Scheduled 1972 Sigmoidoscopy [code = [facility]] Medical Cente r Future Scheduled 1972 Screening for malignant [facility] 00:00:00 neoplasm of breast Medical C enter (procedure) [code = 902976869] Future Scheduled 1972 CT Colonography (combo) [facility] 00:00:00 [code = CT [facility] ([facility])] Future Scheduled 1972 Screening for malignant [facility] 00:00:00 neoplasm of colon Medical Ce nter (procedure) [code = 072074121] Future Scheduled 1972 Screening for malignant [facility] 00:00:00 neoplasm of colon Medical Ce nter (procedure) [code = 364762839] Future Scheduled 1972 Screening for malignant [facility] 00:00:00 neoplasm of colon Medical Ce nter (procedure) [code = 526900833] Future Scheduled 1972 Screening for malignant [facility] 00:00:00 neoplasm of colon Medical Ce nter (procedure) [code = 232585285] Future Scheduled 1972 Sigmoidoscopy [code = [facility] S[facility]oscopy] Medical Cente r Future Scheduled 1972 Screening for malignant [facility] 00:00:00 neoplasm of breast Medical C enter (procedure) [code = 761792109] Future Scheduled 1972 CT Colonography (combo) [facility] 00:00:00 [code = CT [facility] ([facility])] Future Scheduled 1972 Screening for malignant [facility] 00:00:00 neoplasm of colon Medical Ce nter (procedure) [code = 289108009] Future Scheduled 1972 Screening for malignant [facility] 00:00:00 neoplasm of colon Medical Ce nter (procedure) [code = 825094619] Future Scheduled 1972 Screening for malignant [facility] 00:00:00 neoplasm of colon Medical Ce nter (procedure) [code = 136633447] Future Scheduled 1972 Screening for malignant [facility] 00:00:00 neoplasm of colon Medical Ce nter (procedure) [code = 518718292] Future Scheduled 1972 Sigmoidoscopy [code = [facility]] Medical Cente r Future Scheduled 1972 Screening for malignant [facility] 00:00:00 neoplasm of breast Medical C enter (procedure) [code = 314038233] Future Scheduled 1972 CT Colonography (combo) [facility] 00:00:00 [code = CT [facility] ([facility])] Future Scheduled 1972 Screening for malignant [facility] 00:00:00 neoplasm of colon Medical Ce nter (procedure) [code = 543951459] Future Scheduled 1972 Screening for malignant [facility] 00:00:00 neoplasm of colon Medical Ce nter (procedure) [code = 324149226] Future Scheduled 1972 Screening for malignant [facility] 00:00:00 neoplasm of colon Medical Ce nter (procedure) [code = 709564972] Future Scheduled 1972 Screening for malignant [facility] 00:00:00 neoplasm of colon Medical Ce nter (procedure) [code = 911010239] Future Scheduled 1972 Sigmoidoscopy [code = [facility]] Medical Cente r Future Scheduled 1972 Screening for malignant [facility] 00:00:00 neoplasm of breast Medical C enter (procedure) [code = 737483124] Future Scheduled 1972 CT Colonography (combo) [facility] 00:00:00 [code = CT Colonography [facility] (combo)] Future Scheduled 1972 Screening for malignant [facility] 00:00:00 neoplasm of colon Medical Ce nter (procedure) [code = 531280047] Future Scheduled 1972 Screening for malignant [facility] 00:00:00 neoplasm of colon Medical Ce nter (procedure) [code = 558658855] Future Scheduled 1972 Screening for malignant [facility] 00:00:00 neoplasm of colon Medical Ce nter (procedure) [code = 363039056] Future Scheduled 1972 Screening for malignant [facility] 00:00:00 neoplasm of colon Medical Ce nter (procedure) [code = 518733517] Future Scheduled 1972 Sigmoidoscopy [code = [facility]] Medical Cente r Goal Plan of Care Note [code = 28819-5] Goal Plan of Care Note [code = 70080-3] Goal Plan of Care Note [code = 56530-0] Goal Plan of Care Note [code = 34267-0] Goal Plan of Care Note [code = 71994-2] Goal Plan of Care Note [code = 68142-9] Goal Plan of Care Note [code = 93059-5] Goal Plan of Care Note [code = 38145-7] Goal Plan of Care Note [code = 78640-8] Goal Plan of Care Note [code = 21037-3] Goal Plan of Care Note [code = 42091-7] Goal Plan of Care Note [code = 30595-8] Goal Plan of Care Note [code = 99629-3] Goal Plan of Care Note [code = 54523-7] Goal Plan of Care Note [code = 11130-6] Goal Plan of Care Note [code = 13754-7] Goal Plan of Care Note [code = 51083-2] Goal Plan of Care Note [code = 23296-9] Goal Plan of Care Note [code = 02373-9] Goal Plan of Care Note [code = 49143-3] Goal Plan of Care Note [code = 84732-8] Goal Plan of Care Note [code = 67920-3] Goal Plan of Care Note [code = 59952-2] Goal Plan of Care Note [code = 46233-9] Goal Plan of Care Note [code = 48040-7] Goal Plan of Care Note [code = 57207-6] Goal Plan of Care Note [code = 28177-9] Goal Plan of Care Note [code = 26411-5] Goal Plan of Care Note [code = 70875-9] Goal Plan of Care Note [code = 20081-9] Goal Plan of Care Note [code = 23356-2] Goal Plan of Care Note [code = 49547-1] Goal Plan of Care Note [code = 83166-3] Goal Plan of Care Note [code = 00981-6] Goal Plan of Care Note [code = 84731-8] Encounters Start End Encounter Admission Attending Care Care Encounter Source Date/Time Date/Time Type Type Clinicians Facility Department ID 2021-05-20 Emergency [facility] [id number] Univers 18:48:04 [facility] 2021-05-20 Emergency [facility] [id number] Univers 12:43:40 [facility] 2022-12-11 2022-12-11 Emergency Alfonso RAMIREZ [facility] ERT [id number] Univers 08:56:00 15:29:00 [facility] 2022-12-11 2022-12-11 Emergency Alfonso Mulligan [facility] 1.2.840.114 [id number] Univers 08:56:00 15:29:00 Lorelei HOYOSBRANDI 350.1.13.10 i [place] [id number] [facility] [address] 2022-11-17 2022-11-18 Emergency X BRIANA, [facility] ERT [id number] Univers 17:25:00 01:19:00 RITCHIE najera of [facility] 2022-11-17 2022-11-18 Emergency Briana, [facility] 1.2.297.126 [id number] Univers 17:25:00 01:19:00 Ritchie HERNANDEZ 350.1.13.10 [place] [id number] [facility] [address] 2022-08-28 2022-08-28 Patient Shy Beckman 1.2.840.114 10 [id number] Univers 00:00:00 00:00:00 Outreach E WALLACE 350.1.13.10 [place] [id number] [facility] [address] 2022-08-20 2022-08-20 Patient Shy Beckman 1.2.840.114 10 [id number] Univers 00:00:00 00:00:00 Outreach E [place] 350.1.13.10 [place] [id number] [facility] [address] 2022-08-02 2022-08-[address] [facility] [id number] 17:30:[facility] 14:29:00 Encounter Jen Yepez dominic Diane, [facility] 2022-08-02 2022-08-03 Outpatient ER CORRY, [facility] Neurology [id number] [facility] 17:30:00 14:29:00 [facility] 2022-08-03 2022-08-[address] [facility] [id number] 00:00:00 00:00:00 Only [facility] 2022-08-02 2022-08-02 Travel [facility] [id number] [facility] 00:00:00 00:00:00 [facility] 2022-07-31 2022-08-01 Inpatient X ESSENCE DCKEVIN SHEA [id number] Univers 11:42:00 21:48:00 LORENZA ity of [facility] 2022-07-31 2022-08-01 [facility] Sav Rondon [facility] 1.2.840.1 14 [id number] Univers 11:42:00 21:48:00 Encounter Essence Lorenza [place] 350.1.13.10 [place] [id number] [facility] [address] 2022-08-01 2022-08-01 Transition Corey YANETCorbin 1.2.840.114 [id number] Univers 00:00:00 00:00:00 of Care Maria Teresa [place] 350.1.13.10 [place] [id number] [facility] [address] 2022-07-28 2022-07-28 Outpatient SFA SFA [id number] Adria 14:41:38 14:41:38 0109 F Bradley 2022-07-28 2022-07-28 Outpatient [id number] 3d e2gd84-6 00:00:00 00:00:00 Visit [id number] 540-4579-8 -6gb5-3ie fa1-9db46d [id number] 2022-07-24 2022-07-24 Outpatient SFA SFA [id number] Adria 13:24:40 13:24:40 0105 F Mauricio 2022-05-23 2022-05-23 Outpatient SFA SFA [id number] Adria 14:51:01 14:51:01 1104 F Mauricio 2022-05-23 2022-05-23 Outpatient [id number] f9 figv91-m 00:00:00 00:00:00 Visit t79e-9ks6 62f-4bb7-b -e36u-3z2 33a-2l7793 [id number] 7850ee 2022-05-04 2022-05-08 Outpatient X CHANTEL MATTHEWS [facility] S [place] [id number] Univers 20:22:00 14:44:00 CHANTEL MATTHEWS ity of [facility] 2022-05-04 2022-05-08 Emergency Maeve Brandyn Xiang TANNER 1.2.840.1 14 [id number] Univers 20:22:00 14:44:00 Chantel Matthews [place] 350.1.13 .10 ity of [facility] 4.2.7.2.686 [facility] as [id number] [facility] [address] 2022-04-13 2022-04-15 [facility] BERN[facility] [id number] Univers 13:06:00 15:00:00 [facility] 2022-04-13 2022-04-15 [facility] Sapna Vargas 1.2.84 0.114 [id number] Univers 13:06:00 15:00:00 Encounter Ladan Estevesvaldo Katz [place] 350. 1.13.10 ity of [facility] 4.2.7.2.686 [place] [id number] [facility] [address] 2022-02-19 2022-02-19 Imm/Inj Vaccine, [facility] KENDRICK KE 1.2.840.114 [id number] Univers 10:20:00 10:30:00 Visit Jose Frederick 350.1.13.10 [place] [id number] [facility] [address] 2022-02-19 2022-02-19 Outpatient R JOSE FREDERICK [facility] [id number] Univers 10:20:00 10:20:00 ity [facility] [place] 2021-11-23 2021-11-23 Emergency X ESTEFANY [facility] ERT [id number] Univers 15:07:00 17:03:00 FOLUSHO ity [facility] 2021-11-23 2021-11-23 Emergency Sav Rondon [facility] 1.2.840. 114 [id number] Univers 15:07:00 17:03:00 Nichelle Allison Angelia HERNANDEZ 350.1.13. 10 ity of [place] 4.2.7.2.686 [facility] [id number] [facility] [address] 2021-11-21 2021-11-21 Outpatient R [facility] [id number] Univers 09:40:00 09:40:00 ity of [facility] 2021-05-24 2021-05-24 Outpatient R JOSE FREDERICK [facility] [id number] Univers 09:30:00 09:30:00 ity of [facility] 2021-05-24 2021-05-24 Imm/Inj Vaccine, [facility] [place] 1.2.840.114 [id number] Univers 08:47:51 08:57:51 Visit Otoniel, Jose LONDON 350.1.13.10 [place] [id number] [facility] [address] 2021-05-03 2021-05-03 Outpatient R JOSE FREDERICK [facility] [id number] Univers 09:40:00 09:59:35 ity of [facility] 2021-05-03 2021-05-03 Imm/Inj Vaccine, [facility] [place] 1.2.840.114 [id number] Univers 09:17:43 09:59:35 Visit OtonielJose foss Carlito 350.1.13.10 [place] [id number] [facility] [address] 2021-04-16 2021-04-16 Orders Doctor THEODORE 1.2.840.114 [id number] Univers 00:00:00 00:00:00 Only Unassigned, [place] 350.1.13.10 ity of [place] [facility] 4.2.7.2.686 Javier as [id number] [facility] [address] 2021-03-17 2021-03-17 Telephone EWELINA Nava 1.2.432.561 [id number] Univers 00:00:00 00:00:00 Aneatrice [place] 350.1.13.10 ity of HOSPITAL 4.2.7.2.686 J[place] as [id number] [address] 2021-03-16 2021-03-16 Emergency Palmer, [facility] 1.2.840.114 [id number] Univers 20:08:00 23:24:00 Fabrice Julio Cesar 350.1.13.10 i ty of [place] 4.2.7.2.686 [facility] [id number] [address] 2021-03-14 2021-03-14 Urgent Lydia Desouza [facility] 1.2.840.114 [id number] Univers 18:59:34 20:19:13 Care Unknown, Attending Health 350.1.13.10 ity of [place] 4.2.7.2.686 Javier as Prem?Blea [phone] [address] Medical Office [facility] 2021-03-14 2021-03-14 Outpatient R UNKNOWN, [facility] [id number] Univers 19:00:00 19:00:00 ATTENDING ity [facility] 2021-02-19 2021-02-19 Emergency Patel, [facility] 1.2.358.923 [id number] Univers 10:49:00 14:48:00 Anali Hernandez 350.1.13.10 i ty [place] [phone] [address] 2019-03-09 2019-03-09 [facility] 1.2.840.114 [id number] 00:00:00 00:00:00 Yehuda Hernandez 350.1.13.10 [place] 4.2.7.2.686 Professio [id number] [address] 2019-03-09 2019-03-09 [facility] 1.2.840.114 [id number] Univers 00:00:00 00:00:00 Yehuda Hernandez 350.1.13.10 [place] [phone] [address] Results Test Description Test Time Test Comments Results Result Comments Source MAGNESIUM 2022-12-11 17:14:06 Test Item Value Reference Range Interpretation Comme nts MAGNESIUM (test code = 6981862090) 1.9 mg/dL 1.7-2.4 Lab Interpretation (test code = 77328-3) [facility] (44994)2022-12-11 15:16:25 Test Item Value Reference Range Interpretation Comments NA (test code = 139 mmol/L 135-145 3078692060) K (test code = 3.5 mmol/L 3.5-5.0 0791796313) CL (test code = 107 mmol/L 98-108 7138746079) CO2 TOTAL (test code = 24 mmol/L 23-31 3673166176) AGAP (test code = 8 2-16 1775472075) BUN (test code = 9 mg/dL 7-23 8579105944) GLUCOSE (test code = 129 mg/dL 70-110 H 0845100638) CREATININE (test code = 0.68 mg/dL 0.50-1.04 3542552323) TOTAL BILI (test code = 0.5 mg/dL 0.1-1.6 7094127204) CALCIUM (test code = 8.9 mg/dL 8.6-10.6 1018610092) T PROTEIN (test code = 6.3 g/dL 6.3-8.2 5892073627) ALBUMIN (test code = 3.8 g/dL 3.5-5.0 6467763125) ALK PHOS (test code = 87 U/L 34-122 9588317677) ALTv (test code = 24 U/L 5-35 2-6) AST(SGOT) (test code = 21 U/L 13-40 8300863133) eGFR (test code = 91.6 mL/min/1.73m2 4993086886) LYNDSAY (test code = LYNDSAY) Association of [...] tests). Lab Interpretation Abnormal (test code = 71331-4) [facility] [id number] 15:10:45 Test Item Value Reference Range Interpretation Comments TROPONIN I (test code = 0.015 ng/mL <=0.034 9688290917) LYNDSAY (test code = LYNDSAY) Reference (Normal) [...] biotin. Lab Interpretation Normal (test code = 56386-8) [facility]MIN[facility] [id number] 15:07:48 Test Item Value Reference Range Interpretation Comments NT-proBNP (test code = 1460 pg/mL <=125 H [id number]) LYNDSAY (test code = LYNDSAY) Biotin has been reported to cause a negative bias, interpret results relative to patient's use of biotin. Lab Interpretation (test Abnormal code = 80398-8) [facility]-[id number] 14:45:24 Test Item Value Reference Interpretation Comments Range D-DIMER (test code = 0.99 See_Comment H [Autom ated 2793028262) message] The system which generated this result [...] diagnosis. Lab Interpretation Abnormal (test code = 01586-6) [facility] WITH [id number] 14:14:48 Test Item Value Reference Range Interpretation Comments WBC (test code = 7.86 See_Comment [Automated 9387-2) message] The sy stem which generated this result transmitted reference range : 4.30 - 11.10 10*3/?L. The reference range was not used to interpret this result as normal/abnormal . RBC (test code = 5.13 See_Comment [Automated 085-8) message] The sy stem which generated this [...] RDW-SD (test code = 47.8 fL 39.0-49.9 91531-1) RDW-CV (test code = 16.9 % 12.0-15.5 H 788-0) PLT (test code = 507 See_Comment H [Automated 777-3) message] The sy stem which generated this result transmitted reference range : 166 - 358 10*3/ ?L. The reference r zoe was not used to interpret this result as normal/abnormal . MPV (test code = 8.2 fL 9.5-12.9 L 84742-1) NRBC/100 WBC (test 0.0 See_Comment [Automat ed code = 5310110203) message] The system which generated this result transmitted reference range : 0.0 - 10.0 /100 WBCs. The refer ence range was not u sed to interpret th is result as normal/abnormal . NRBC x10^3 (test code See_Comment [Auto mated = 0779235209) message] The s ystem which generated this result transmitted reference range : 10*3/?L. The reference range was not used to interpret this result as normal/abnormal . GRAN MAT (NEUT) % 64.5 % (test code = 770-8) IMM GRAN % (test code 0.30 % = 8185621327) LYMPH % (test code = 25.6 % 736-9) MONO % (test code = 7.5 % 5905-5) EOS % (test code = 1.0 % 713-8) BASO % (test code = 1.1 % 706-2) GRAN MAT x10^3(ANC) 5.07 10*3/uL 1.88-7.09 (test code = 3275580608) IMM GRAN x10^3 (test 0.00-0.06 code = 3673316184) LYMPH x10^3 (test code 2.01 10*3/uL 1.32-3.29 = 731-0) MONO x10^3 (test code 0.59 10*3/uL 0.33-0.92 = 742-7) EOS x10^3 (test code = 0.08 10*3/uL 0.03-0.39 711-2) BASO x10^3 (test code 0.09 10*3/uL 0.01-0.07 H = 704-7) Lab Interpretation Abnormal (test code = 77914-4) [facility] TylerRPR[facility] 13:17:22 Test Item Value Reference Range Interpretation Comments RPR SCREEN ([employer]) (test code = Nonreactive Nonreactive 420) HEMOGLOBIN [id number] 10:39:49 Test Item Value Reference Range Interpretation Comments HEMOGLOBIN A1C 5.8 % See_Comment H [Automated m essage] ELECTROPHORESIS ([employer]) The system which (test code = 3811) generated this result transmitted ref erence range: <=5.6%. The reference range was not used to int erpret this result as normal/abnormal . "The A1c is measured using a NGSP-certified method. HbA1c value equal to or greater than 6.5% as thediagnosis cutoff for diabetes. An HbA1c value of 5.7- 6.4% indicates increased risk for diabetes (prediabetes)."History Teacher ID - ADM VITAMIN [id number] 22:48:27 Test Item Value Reference Range Interpretation Comments VITAMIN B12 ([employer]) (test code = 227 pg/mL 213-816 774) History Teacher ID - MARCOTSH/FREE T4 IF [id number] 22:08:28 Test Item Value Reference Range Interpretation Comments THYROID STIMULATING HORMONE 3.309 uIU/mL 0.350-4.940 ([employer]) (test code = 772) History Teacher ID - JSHIV-1 ANTIGEN WITH HIV-1/2 [id number] 22:08:28 Test Item Value Reference Range Interpretation Comments HIV-1 ANTIGEN WITH HIV 1\\T\\2 Nonreactive Nonreactive ANTIBODY (2) ([employer]) (test code = 2586) History Teacher ID - JSC-REACTIVE [id number] 21:49:44 Test Item Value Reference Range Interpretation Comments C-REACTIVE PROTEIN ([employer]) (test 0.35 mg/dL 0.00-0.50 code = 676) History Teacher ID - JSCOMPREHENSIVE METABOLIC [id number] 21:49:43 Test Item Value Reference Range Interpretation [...] not appl icable for dialysis patien ts History Teacher ID - JSLIPID [id number] 21:49:43 Test Item Value Reference Range Interpretation [...] Borderline 130-159 High 160-189 Very High >=190 History Teacher ID - JSCBC W/PLT COUNT & AUTO [id number] 21:34:03 Test Item Value Reference Range Interpretation [...] Interpretation Comments Height (test code = in 0197175622) Weight (test code = lbs 8267355000) Systolic BP (test code = mmHg 1928696453) Diastolic BP (test code mmHg = 4518242358) Heart Rate (test code = bpm 0256105791) BSA (test code = 2.00 m2 2557968047) Ao root diam (test code 3.20 cm = 4885994875) Aortic root (test code = 3.2 cm 7085461311) Ao root annulus (test 3.2 cm code = 5346725718) LVOT diameter (test code 1.99 cm = 3242575221) LVOT area (test code = 3.10 cm2 6724152563) LVIDD (test code = 5.10 cm 9981300167) Left Ventricular End 123.0 mL Diastolic Volume by Teichholz Method (test code = 0321446) IVS (test code = 1.34 cm 0797652455) Interventricular Septum 1.34 cm Diastolic Thickness by 2D (test code = 5725739) LVPWD (test code = 1.34 cm 9098393396) PW (test code = 1.34 cm 0.6-1.3 1440925740) EF(Teich) (test code = 41.80 % 7035749836) LVIDS (test code = 4.00 cm 3689391598) Left Ventricular End 71.5 mL Systolic Volume by Teichholz Method (test code = 9250217) FS (test code = 21 % 0378876442) EF - 2D (test code = 41.80 % 59254869) LA size (test code = 4.6 cm 0699064966) Pulmonic Regurgitant End 119.4 cm/s Max Velocity (test code = 1729330055) LAV(MOD-sp4) (test code 95.00 mL = 3628269295) E wave decelartion time 0.15 s (test code = 4929639829) MV stenosis pressure 1/2 45.6 ms time (test code = 4442214245) MV Peak A Evette (test code 123.8 cm/s = 3411486483) MV Peak E Evette (test code 109.7 cm/s = 8627470124) E/A ratio (test code = ratio 4842743149) MR max PG (test code = 87.20 mm[Hg] 5193609462) MR max evette (test code = 466.90 cm/s 1126632048) Mr max evette (test code = 466.9 m/s 8478713046) MV Prop V (test code = 51.00 cm/s 3878518791) MV E/e' septal (test 8.1 cm/s code = 1983531664) Tapse (test code = 2.21 cm 6375985409) LVOT stroke volume (test 49.80 cm3 code = 6974601214) LVOT peak evette (test code 89.1 cm/s = 1907518341) LVOT mn grad (test code mmHg = 3423201823) AV LVOT peak gradient mmHg (test code = 7514868391) LVOT peak VTI (test code 16.0 cm = 1901965007) LV V1 mean (test code = 64.30 cm/s 4751100935) Aortic valve mean 133.8 cm/s velocity (test code = 4444138230) Ao peak evette (test code = 175.3 cm/s 3840098860) Ao VTI (test code = 32.2 cm 1549798128) AV area by cont VTI 1.6 cm2 (test code = 8944735397) AV area peak evette (test 1.6 cm2 code = 0778805728) Ao max PG (test code = 12.30 mm[Hg] 7678822561) AV peak gradient (test mmHg code = 4490064294) AV valve area (test code 1.55 cm2 = 5029156942) AV mean gradient (test mmHg code = 0989112785) AV regurgitation 358.5 ms pressure 1/2 time (test code = 8927746046) AI dec slope (test code 364.20 cm/s2 = 4349840066) AI max evette (test code = 445.80 cm/s 1828518182) AI max PG (test code = 79.50 mm[Hg] 2013101352) Radiology Study observation (narrative) (test code = 11095-4) LYNDSAY (test code = LYNDSAY) ?Left?Ventricle: Left [...] mL of Lumason ultrasound enhancing agent used. [facility] GLUCOSE (AUTOMATED)2022-08-01 10:43:32 Test Item Value Reference Range Interpretation Comments POCT GLU (test code = 2525714246) 148 mg/dL 70-110 H Lab Interpretation (test code = Abnormal 72156-0) [facility] TylerACTIVATED PARTIAL THRMPLAS [id number] 18:39:45 Test Item Value Reference Range Interpretation Comments APTT Patient (test See_Comment [Automat ed code = 3173-2) message] The system which generated this result transmitted reference range : 23 - 38 Seconds . The reference range was not used to interpr et this result as normal/abnormal . LYNDSAY (test code = LYNDSAY) The [facility] patient population mean normal value for aPTT is 30 seconds. Lab Interpretation Normal (test code = 39883-3) [facility] TylerPROTHROMBIN TIME / [id number] 18:37:42 Test Item Value Reference Range Interpretation [...] tions. Lab Interpretation (test Normal code = 25792-8) [facility] TylerTROPONIN [id number] 18:32:01 Test Item Value Reference Interpretation Comments Range TROPONIN I (test 0.019 ng/mL See_Comment [Automated code = 5027822403) message] The system which generated this result [...] biotin. Lab Interpretation Normal (test code = 83343-7) [facility] TylerN-TERMINAL [id number] 18:29:01 Test Item Value Reference Range Interpretation Comments NT-proBNP (test code 2770 pg/mL See_Comment H [Autom ated = 9473281957) message] The system which generated this result transmitted reference range : <=125. The reference range was not used to interpret this result as normal/abnormal . LYNDSAY (test code = LYNDSAY) Biotin has been reported to cause a negative bias, interpret results relative to patient's use of biotin. Lab Interpretation Abnormal (test code = 29646-6) [facility] TylerCOMP. METABOLIC PANEL (01846)2022-07-31 18:21:42 Test Item Value Reference Range Interpretation Comments NA (test code = 136 mmol/L 135-145 8612443545) K (test code = 4.6 mmol/L 3.5-5.0 6431703503) CL (test code = 104 mmol/L 98-108 6543264031) CO2 TOTAL (test code = 26 mmol/L 23-31 5728645612) AGAP (test code = 2-16 7842109248) BUN (test code = 9 mg/dL 7-23 4597091803) GLUCOSE (test code = 97 mg/dL 70-110 8020878816) CREATININE (test code = 0.64 mg/dL 0.50-1.04 1496283705) TOTAL BILI (test code = 0.5 mg/dL 0.1-1.9 8809739122) CALCIUM (test code = 8.2 mg/dL 8.6-10.6 L 7405718628) T PROTEIN (test code = 6.5 g/dL 6.3-8.2 9273421997) ALBUMIN (test code = 3.9 g/dL 3.5-5.0 3304414194) ALK PHOS (test code = 93 U/L 34-122 8967751046) ALTv (test code = 18 U/L 5-35 1742-6) AST(SGOT) (test code = 19 U/L 13-40 1869711774) eGFR (test code = mL/min/1.73m2 7973624473) LYNDSAY (test code = LYNDSAY) Association of [...] tests). Lab Interpretation Abnormal (test code = 96109-8) [facility] TylerLIPASE2023-01-12 18:21:01 Test Item Value Reference Range Interpretation Comments LIPASE (test code = 3426668854) 54 U/L 0-220 Lab Interpretation (test code = Normal 84412-1) [facility] TylerCB WITH [id number] 18:07:00 Test Item Value Reference Range Interpretation [...] (test code = 53.1 fL 39.0-49.9 H 71792-6) RDW-CV (test code = 17.0 % 12.0-15.5 H 788-0) PLT (test code = See_Comment H [Automated 777-3) message] The sy stem which generated this result transmitted reference range : 166 - 358 10*3/ ?L. The reference r zoe was not used to interpret this result as normal/abnormal . MPV (test code = 8.2 fL 9.5-12.9 L 08591-8) NRBC/100 WBC (test See_Comment [Automat ed code = 6942251391) message] The system which generated this result transmitted reference range : 0.0 - 10.0 /100 WBCs. The refer ence range was not u sed to interpret th is result as normal/abnormal . NRBC x10^3 (test code See_Comment [Auto mated = 8522182082) message] The s ystem which generated this result transmitted reference range : 10*3/?L. The reference range was not used to interpret this result as normal/abnormal . GRAN MAT (NEUT) % 64.0 % (test code = 770-8) IMM GRAN % (test code 0.40 % = 9397458616) LYMPH % (test code = 27.3 % 736-9) MONO % (test code = 6.5 % 5905-5) EOS % (test code = 1.1 % 713-8) BASO % (test code = 0.7 % 706-2) GRAN MAT x10^3(ANC) 5.46 10*3/uL 1.88-7.09 (test code = 1945994425) IMM GRAN x10^3 (test 0.03 10*3/uL 0.00-0.06 code = 3236622361) LYMPH x10^3 (test code 2.32 10*3/uL 1.32-3.29 = 731-0) MONO x10^3 (test code 0.55 10*3/uL 0.33-0.92 = 742-7) EOS x10^3 (test code = 0.09 10*3/uL 0.03-0.39 711-2) BASO x10^3 (test code 0.06 10*3/uL 0.01-0.07 = 704-7) Lab Interpretation Abnormal (test code = 90200-9) [facility] METABOLIC PANEL (NA, K, CL, CO2, GLUCOSE, BUN, CREATININE, CA)2022-05-08 06:37:01 Test Item Value Reference Range Interpretation Comments NA (test code = 137 mmol/L 135-145 3186524885) K (test code = 3.8 mmol/L 3.5-5 8597486846) CL (test code = 103 mmol/L 98-108 8390390090) CO2 TOTAL (test code = 24 mmol/L 23-31 7416658765) AGAP (test code = 2-16 9942257627) BUN (test code = 13 mg/dL 7-23 5476558461) GLUCOSE (test code = 90 mg/dL 70-110 8175183716) CREATININE (test code = 0.69 mg/dL 0.5-1.04 4214626730) CALCIUM (test code = 8.5 mg/dL 8.6-10.6 L 8043903988) eGFR (test code = mL/min/1.73m2 5489809812) LYNDSAY (test code = LYNDSAY) Association of [...] tests). Lab Interpretation Abnormal (test code = 36216-1) [facility] TylerMAGNESIUM2022-10-20 06:37:01 Test Item Value Reference Range Interpretation Comments MAGNESIUM (test code = 3494563507) 2.1 mg/dL 1.7-2.4 Lab Interpretation (test code = Normal 99505-8) [facility] TylerPHOSPHORUS2022-10-20 06:37:01 Test Item Value Reference Range Interpretation Comments PHOSPHORUS (test code = 9762751662) 4.7 mg/dL 2.5-5 Lab Interpretation (test code = Normal 21947-6) [facility] TylerCB WITH [id number] 06:11:54 Test Item Value Reference Range Interpretation Comments WBC (test code = See_Comment [Automated 3390-2) message] The sy stem which generated this result transmitted reference range : 4.30 - 11.10 10*3/?L. The reference range was not used to interpret this result as normal/abnormal . RBC (test code = See_Comment [Automated 769-8) message] The sy stem which generated this [...] (test code = 51.0 fL 39-49.9 H 95760-4) RDW-CV (test code = 16.5 % 12-15.5 H 788-0) PLT (test code = See_Comment H [Automated 777-3) message] The sy stem which generated this result transmitted reference range : 166 - 358 10*3/ ?L. The reference r zoe was not used to interpret this result as normal/abnormal . MPV (test code = 8.3 fL 9.5-12.9 L 04784-2) NRBC/100 WBC (test See_Comment [Automat ed code = 0885302543) message] The system which generated this result transmitted reference range : 0.0 - 10.0 /100 WBCs. The refer ence range was not u sed to interpret th is result as normal/abnormal . NRBC x10^3 (test code See_Comment [Auto mated = 9893597104) message] The s ystem which generated this result transmitted reference range : 10*3/?L. The reference range was not used to interpret this result as normal/abnormal . GRAN MAT (NEUT) % 64.5 % (test code = 770-8) IMM GRAN % (test code 0.50 % = 6297492983) LYMPH % (test code = 27.1 % 736-9) MONO % (test code = 6.6 % 5905-5) EOS % (test code = 0.6 % 713-8) BASO % (test code = 0.7 % 706-2) GRAN MAT x10^3(ANC) 5.28 10*3/uL 1.88-7.09 (test code = 5956078703) IMM GRAN x10^3 (test 0.04 10*3/uL 0-0.06 code = 7359511775) LYMPH x10^3 (test code 2.22 10*3/uL 1.32-3.29 = 731-0) MONO x10^3 (test code 0.54 10*3/uL 0.33-0.92 = 742-7) EOS x10^3 (test code = 0.05 10*3/uL 0.03-0.39 711-2) BASO x10^3 (test code 0.06 10*3/uL 0.01-0.07 = 704-7) Lab Interpretation Abnormal (test code = 29346-4) [facility] TylerPO[facility] GL[facility])2022-05-07 01:18:10 Test Item Value Reference Range Interpretation Comments POCT GLU (test code = 5065763163) 120 mg/dL 70-110 H Lab Interpretation (test code = Abnormal 13028-5) [facility] TylerType and Screen - ONCE Frteqif9174-03-01 05:46:35 Test Item Value Reference Range Interpretation Comments ABO & RH (test code O POSITIVE Performe d at [facility] = 20) Laboratory Serv [facility] [address] [facility] [address]Iida Free: [phone] A No. [id number] IAT (test code = Negative Performed a t [facility] 1185) Laboratory Serv [facility] [address] [facility] s [address]Imgd Free: [phone] A No. [id number] [facility] TylerBASIC METABOLIC PANEL (NA, K, CL, CO2, GLUCOSE, BUN, CREATININE, CA)2022-05-05 08:22:57 Test Item Value Reference Range Interpretation Comments NA (test code = 136 mmol/L 135-145 2159926314) K (test code = 4.9 mmol/L 3.5-5 3969859613) CL (test code = 108 mmol/L 98-108 4994248884) CO2 TOTAL (test code = 22 mmol/L 23-31 L 8723154300) AGAP (test code = 2-16 5260295507) BUN (test code = 12 mg/dL 7-23 8789061315) GLUCOSE (test code = 155 mg/dL 70-110 H 2227507236) CREATININE (test code = 0.63 mg/dL 0.5-1.04 6831526072) CALCIUM (test code = 8.4 mg/dL 8.6-10.6 L 7371538105) eGFR (test code = mL/min/1.73m2 0791156034) LYNDSAY (test code = LYNDSAY) Association of [...] tests). Lab Interpretation Abnormal (test code = 86530-9) [facility] TylerPROTHROMBIN TIME / [id number] 08:22:37 Test Item Value Reference Range Interpretation Comments PROTIME PATIENT (test See_Comment [Auto mated message] code = 5964-2) The system [employer] generated this result transmitted ref erence range: 10.1 - 1 2.6 Seconds. The re ference range was not u sed to interpret this result as normal/abnor mal. INR (test code = 6301-6) Nor mal INR <1.1; Warfarin Therap eutic range 2.0 to 3. 0 or 2.5 to 3.5, dep ending upon the indica tions. Lab Interpretation (test Normal code = 50665-2) [facility] TyleraPTT2022-10-17 08:22:37 Test Item Value Reference Range Interpretation Comments APTT Patient (test code = See_Comment [ Automated message] 3173-2) The system whic h generated this result transmitted ref erence range: 26 - 36 Seconds. The re ference range was not u sed to interpret this result as normal/abnor mal. Lab Interpretation (test Normal code = 15951-6) [facility] TylerFIBRINOGEN2022-10-17 08:22:37 Test Item Value Reference Range Interpretation Comments Fibrinogen (test code = 6068314425) 294 mg/dL 167-453 Lab Interpretation (test code = Normal 46541-7) [facility] TylerCB WITH [id number] 08:15:01 Test Item Value Reference Range Interpretation Comments WBC (test code = See_Comment [Automated 1290-2) message] The sy stem which generated this result transmitted reference range : 4.30 - 11.10 10*3/?L. The reference range was not used to interpret this result as normal/abnormal . RBC (test code = See_Comment [Automated 599-8) message] The sy stem which generated this [...] (test code = 52.9 fL 39-49.9 H 75981-1) RDW-CV (test code = 16.8 % 12-15.5 H 788-0) PLT (test code = See_Comment H [Automated 777-3) message] The sy stem which generated this result transmitted reference range : 166 - 358 10*3/ ?L. The reference r zoe was not used to interpret this result as normal/abnormal . MPV (test code = 8.3 fL 9.5-12.9 L 64530-3) NRBC/100 WBC (test See_Comment [Automat ed code = 8404252375) message] The system which generated this result transmitted reference range : 0.0 - 10.0 /100 WBCs. The refer ence range was not u sed to interpret th is result as normal/abnormal . NRBC x10^3 (test code See_Comment [Auto mated = 6137896096) message] The s ystem which generated this result transmitted reference range : 10*3/?L. The reference range was not used to interpret this result as normal/abnormal . GRAN MAT (NEUT) % 86.4 % (test code = 770-8) IMM GRAN % (test code 0.40 % = 8906938719) LYMPH % (test code = 11.7 % 736-9) MONO % (test code = 1.1 % 5905-5) EOS % (test code = 0.0 % 713-8) BASO % (test code = 0.4 % 706-2) GRAN MAT x10^3(ANC) 6.36 10*3/uL 1.88-7.09 (test code = 9722421123) IMM GRAN x10^3 (test 0.03 10*3/uL 0-0.06 code = 4050448893) LYMPH x10^3 (test code 0.86 10*3/uL 1.32-3.29 L = 731-0) MONO x10^3 (test code 0.08 10*3/uL 0.33-0.92 L = 742-7) EOS x10^3 (test code = 0.03-0.39 L 711-2) BASO x10^3 (test code 0.03 10*3/uL 0.01-0.07 = 704-7) Lab Interpretation Abnormal (test code = 03553-3) [facility] TylerVITAMIN D, [id number] 20:14:03 Test Item Value Reference Range Interpretation Comments VIT D 25OH (test code = 22 ng/mL 25-80 L 09260-1) LYNDSAY (test code = LYNDSAY) Deficiency: <20 ng/mLInsufficiency: 20-24 ng/mLOptimal: 25-80 ng/mL Lab Interpretation (test Abnormal code = 73872-3) [facility]BA[facility] (NA, K, CL, CO2, GLUCOSE, BUN, CREATININE, CA)2022-04-15 11:27:57 Test Item Value Reference Range Interpretation Comments NA (test code = 138 mmol/L 135-145 5702286476) K (test code = 3.9 mmol/L 3.5-5 6191219753) CL (test code = 106 mmol/L 98-108 4445233921) CO2 TOTAL (test code = 23 mmol/L 23-31 9203062212) AGAP (test code = 2-16 7511767450) BUN (test code = 10 mg/dL 7-23 7536069316) GLUCOSE (test code = 91 mg/dL 70-110 0377251612) CREATININE (test code = 0.65 mg/dL 0.5-1.04 7844441096) CALCIUM (test code = 8.1 mg/dL 8.6-10.6 L 1355926987) eGFR (test code = mL/min/1.73m2 1638171124) LYNDSAY (test code = LYNDSAY) Association of [...] tests). Lab Interpretation Abnormal (test code = 81033-8) [facility] ([facility] 2022-04-14 22:07:33 Test Item Value Reference Range Interpretation Comments Height (test code = in 0878341892) Weight (test code = lbs 3426291799) Systolic BP (test code = mmHg 9035164551) Diastolic BP (test code mmHg = 0066173418) Heart Rate (test code = bpm 9106222322) BSA (test code = 1.94 m2 9802324701) TASV (test code = 15.5 cm/s 9253506911) LVIDD (test code = 6.00 cm 8759985837) Left Ventricular End 183.0 mL Diastolic Volume by Teichholz Method (test code = 0696384) IVS (test code = 1.09 cm 1780686895) Interventricular Septum 1.09 cm Diastolic Thickness by 2D (test code = 2651485) LVPWD (test code = 0.94 cm 2829868074) PW (test code = 0.94 cm 0.6-1.3 5253465075) EF(Teich) (test code = 40.30 % 8758964304) LVIDS (test code = 4.80 cm 4400917410) Left Ventricular End 109.2 mL Systolic Volume by Teichholz Method (test code = 2912070) FS (test code = 20 % 8979457604) EF - 2D (test code = 40.30 % 58586296) LVOT diameter (test code 2.05 cm = 3073642868) LVOT area (test code = 3.30 cm2 4086334216) Ao root diam (test code 3.10 cm = 4720143924) Aortic root (test code = 3.1 cm 0839446445) Ao root annulus (test 3.1 cm code = 7911242473) LA size (test code = 4.2 cm 2850936856) LAV(MOD-sp4) (test code 64.90 mL = 0172200555) MV Peak A Evette (test code 115.7 cm/s = 0239734606) E wave decelartion time 0.15 s (test code = 0651716567) MV Peak E Evette (test code 106.2 cm/s = 7717146160) E/A ratio (test code = ratio 5919718023) LVOT stroke volume (test 48.30 cm3 code = 3895159676) LVOT peak evette (test code 78.4 cm/s = 1620145101) LVOT mn grad (test code mmHg = 6033033373) AV LVOT peak gradient mmHg (test code = 8542122287) LVOT peak VTI (test code 14.7 cm = 9010245666) LV V1 mean (test code = 51.40 cm/s 7738385995) Ao peak evette (test code = 154.7 cm/s 9581315094) AV area peak evette (test 1.7 cm2 code = 9295903747) Ao max PG (test code = 9.60 mm[Hg] 4929749199) AV peak gradient (test mmHg code = 4473556338) AV regurgitation 257.3 ms pressure 1/2 time (test code = 3000073729) AI dec slope (test code 498.10 cm/s2 = 2063809440) AI max evette (test code = 437.60 cm/s 2598368236) AI max PG (test code = 77.80 mm[Hg] 2024019712) Tapse (test code = 2.19 cm 0461468332) LA Volume Index (BP) 32.0 mL/m2 (test code = 2306321434) LA volume (BP) (test 62.1 mL code = 4115260322) LAV(MOD-sp2) (test code 52.70 mL = 1732344281) A4C EF (test code = 44.80 % 3454794719) EF(sp4-el) (test code = 45.20 % 6808359429) SV(MOD-sp4) (test code = 71.20 mL 8538380666) SV(sp4-el) (test code = 73.90 mL 4165629677) LV Diastolic Volume (BP) 146.3 mL (test code = 3010854941) A2C EF (test code = 52.00 % 5777955847) EF(MOD-bp) (test code = 46.70 % 7374555842) EF(sp2-el) (test code = 52.40 % 2402237419) LV Systolic Volume (BP) 77.9 mL (test code = 8341676581) SV(MOD-bp) (test code = 68.40 mL 4021270365) SV(MOD-sp2) (test code = 69.20 mL 6790348475) EF (test code = 3919572442) Left Ventricular Stroke 68.4 mL Volume by 2-D Biplane-MOD (test code = 4511590) Radiology Study observation (narrative) (test code = 45053-1) LYNDSAY (test code = LYNDSAY) ?Left?Ventricle: Left [...] agent used and saline contrast was performed. [facility] (LEVETIRACETAM)2022-04-14 16:48:36 Test Item Value Reference Range Interpretation Comments KEPPRA (test code = 12-46 L 4963015350) LYNDSAY (test code = LYNDSAY) Therapeutic range: 12-46 ?g/mL ? ?Toxic: Not well established.Test developed and characteristics determined by [facility] Laboratory Services. Lab Interpretation Abnormal (test code = 73092-6) [facility] Metabolic Panel (Na, K, Cl, CO2, Glucose, BUN, Creatinine, Ca)2022-04-14 10:50:11 Test Item Value Reference Range Interpretation Comments NA (test code = 136 mmol/L 135-145 4920560236) K (test code = 3.8 mmol/L 3.5-5 4061420145) CL (test code = 105 mmol/L 98-108 9834967534) CO2 TOTAL (test code = 25 mmol/L 23-31 7455518281) AGAP (test code = 2-16 2138994446) BUN (test code = 9 mg/dL 7-23 7694348131) GLUCOSE (test code = 101 mg/dL 70-110 3334240482) CREATININE (test code = 0.66 mg/dL 0.5-1.04 7357126475) CALCIUM (test code = 8.1 mg/dL 8.6-10.6 L 1743305617) eGFR (test code = mL/min/1.73m2 1973578231) LYNDSAY (test code = LYNDSAY) Association of [...] tests). Lab Interpretation Abnormal (test code = 99572-7) [facility]ium, [id number] 10:50:11 Test Item Value Reference Range Interpretation Comments MAGNESIUM (test code = 3975316832) 1.9 mg/dL 1.7-2.4 Lab Interpretation (test code = Normal 31323-4) [facility] TylerThyroid Stimulating [id number] 22:21:44 Test Item Value Reference Range Interpretation Comments TSH (test code = See_Comment Biotin has been 2388172181) reported to cau se a negative bias, interpret resul ts relative to pat radha's use of biotin. [Automated mess age] The system [employer] generated this result transmitted ref erence range: 0.45 - 4 .70 mIU/L. The refe rence range was not u sed to interpret this result as normal/abnor mal. Lab Interpretation (test Normal code = 96366-8) [facility] TylerGLYCOSYLATED HEMOGLOBIN (A1C)2022-04-13 21:53:43 Test Item Value Reference Range Interpretation Comments HGB A1C (test code = 5.8 % 4-5.7 H 4548-4) LYNDSAY (test code = LYNDSAY) Reference RangesNormal: <5.7%Prediabetes: 5.7 - 6.4%Diabetes: > 6.5% Lab Interpretation (test Abnormal code = 06441-1) [facility] L[facility] (03776)(TOTAL CHOLESTEROL, TRIGLYCERIDES, HDL)2022-04-13 21:34:53 Test Item Value Reference Range Interpretation Comments CHOL (test code = 201 mg/dL 120-200 H 5339055853) HDL (test code = 56 mg/dL See_Comment [Automated message] 5629153341) The system [employer] generated this result transmit sherice reference range : >=50. The refer ence range was not u sed to interpret th is result as normal/abnormal . HDLC RATIO (test code = See_Comment [Au tomated message] 6904505129) The system [employer] generated this result transmit sherice reference range : <=4.5. The refe rence range was not u sed to interpret th is result as normal/abnormal . TRIG (test code = 355 mg/dL 30-170 H 9985777412) LDL CHOL (test code = 74 mg/dL See_Comment [Auto mated message] 66437-2) The system [employer] generated this result transmit sherice reference range : <=160. The refe rence range was not u sed to interpret th is result as normal/abnormal . VLDL (test code = 71 mg/dL 5-60 H 6198111629) Lab Interpretation (test Abnormal code = 59502-7) [facility] TylerTroponin I - Code [id number] 18:46:27 Test Item Value Reference Interpretation Comments Range TROPONIN I (test 0.013 ng/mL See_Comment [Automated code = 0439280441) message] The system which generated this result [...] biotin. Lab Interpretation Normal (test code = 79358-1) [facility] Metabolic Panel (NA, K, CL, CO2, Glucose, BUN, Creatinine, CA) - Code [id number] 18:35:07 Test Item Value Reference Range Interpretation Comments NA (test code = 136 mmol/L 135-145 9292618227) K (test code = 4.3 mmol/L 3.5-5 4670988215) CL (test code = 105 mmol/L 98-108 0725760215) CO2 TOTAL (test code = 27 mmol/L 23-31 0904254568) AGAP (test code = 2-16 7682861782) BUN (test code = 8 mg/dL 7-23 2705661041) GLUCOSE (test code = 130 mg/dL 70-110 H 4415016174) CREATININE (test code = 0.75 mg/dL 0.5-1.04 5680965871) CALCIUM (test code = 8.5 mg/dL 8.6-10.6 L 7984203932) eGFR (test code = mL/min/1.73m2 3466667878) LYNDSAY (test code = LYNDSAY) Association of [...] tests). Lab Interpretation Abnormal (test code = 50380-9) [facility] TyleraPTT - Code [id number] 18:32:46 Test Item Value Reference Range Interpretation Comments APTT Patient (test See_Comment [Automat ed code = 3173-2) message] The system which generated this result transmitted reference range : 23 - 38 Seconds . The reference range was not used to interpr et this result as normal/abnormal . LYNDSAY (test code = LYNDSAY) The [facility] patient population mean normal value for aPTT is 30 seconds. Lab Interpretation Normal (test code = 65010-7) [facility] TylerProthrombin Time / INR - Code [id number] 18:30:45 Test Item Value Reference Range Interpretation Comments PROTIME PATIENT (test See_Comment [Auto mated message] code = 5964-2) The system [employer] generated this result transmitted ref erence range: 12.0 - 1 4.7 Seconds. The re ference range was not u sed to interpret this result as normal/abnor mal. INR (test code = 6301-6) Nor mal INR <1.1; Warfarin Therap eutic range 2.0 to 3. 0 or 2.5 to 3.5, dep ending upon the indica tions. Lab Interpretation (test Normal code = 42156-6) [facility] TylerCBC without Diff - Code [id number] 18:23:07 Test Item Value Reference Range Interpretation Comments WBC (test code = 6690-2) See_Comment [A utomated message] The system [employer] generated this result transmit sherice reference range : 4.30 - 11.10 10*3/?L. The reference range was not used to interpret this result as normal/abnormal . RBC (test code = 789-8) See_Comment [Au tomated message] The system [facility] generated this result transmit sherice reference [...] See_Comment H [Au tomated message] The system [facility] generated this result transmit sherice reference range : 166 - 358 10*3/?L. The reference range was not used to interpret this result as normal/abnormal . MPV (test code = 8.1 fL 9.5-12.9 L 55510-7) RDW-CV (test code = 16.1 % 12-15.5 H 788-0) RDW-SD (test code = 49.2 fL 39-49.9 67890-6) NRBC x10^3 (test code = See_Comment [Au tomated message] 7699620137) The system [employer] generated this result transmit sherice reference range : 10*3/?L. The reference range was not used to interpret this result as normal/abnormal . NRBC/100 WBC (test code See_Comment [Au tomated message] = 6004262709) The system [facility] generated this result transmit sherice reference range : 0.0 - 10.0 /100 WBC s. The reference r zoe was not used to interpret this result as normal/abnormal . IPF % (test code = 3725380125) Lab Interpretation (test Abnormal code = 87573-7) [facility] TylerJESS [id number] 21:06:40 Test Item Value Reference Interpretation Comments Range TROPONIN I (test 0.005 ng/mL See_Comment [Automated code = 5244078891) message] The system which generated this result [...] biotin. Lab Interpretation Normal (test code = 74603-6) [facility]. METABOLIC PANEL (48133)2021-11-23 20:55:42 Test Item Value Reference Range Interpretation Comments NA (test code = 137 mmol/L 135-145 2529176913) K (test code = 4.3 mmol/L 3.5-5.0 2530767181) CL (test code = 104 mmol/L 98-108 5311600812) CO2 TOTAL (test code = 22 mmol/L 23-31 L 8919540812) AGAP (test code = 2-16 4145220653) BUN (test code = 15 mg/dL 7-23 9201246977) GLUCOSE (test code = 114 mg/dL 70-110 H 4573895489) CREATININE (test code = 0.68 mg/dL 0.50-1.04 3680320029) TOTAL BILI (test code = 0.5 mg/dL 0.1-1.4 9708053321) CALCIUM (test code = 9.1 mg/dL 8.6-10.6 8773845336) T PROTEIN (test code = 7.3 g/dL 6.3-8.2 0381264133) ALBUMIN (test code = 4.4 g/dL 3.5-5.0 4421716819) ALK PHOS (test code = 243 U/L 34-122 H 7057535647) ALTv (test code = 24 U/L 5-35 1742-6) AST(SGOT) (test code = 30 U/L 13-40 5126549565) eGFR (test code = mL/min/1.73m2 2460979155) LYNDSAY (test code = LYNDSAY) Association of [...] tests). Lab Interpretation Abnormal (test code = 05606-9) [facility] TylerLIPASE2022-05-07 20:55:22 Test Item Value Reference Range Interpretation Comments LIPASE (test code = 6806850837) 96 U/L 0-220 Lab Interpretation (test code = Normal 30514-5) [facility] TylerPOCT [id number] 20:46:00 Test Item Value Reference Range Interpretation Comments POCT PREG (test code = 1605) negative On board controls acceptable with present C Line (test code = 3574) POCT PREG LOT # (test code = 3575) [id number] POCT PREG TEST DATE (test 04/18/2023 code = 3576) Lab Interpretation (test code = Normal 86441-0) [facility] WITH [id number] 20:40:38 Test Item Value Reference Range Interpretation [...] (test code = 53.7 fL 39.0-49.9 H 75581-1) RDW-CV (test code = 17.2 % 12.0-15.5 H 788-0) PLT (test code = See_Comment H [Automated 777-3) message] The sy stem which generated this result transmitted reference range : 166 - 358 10*3/ ?L. The reference r zoe was not used to interpret this result as normal/abnormal . MPV (test code = 8.5 fL 9.5-12.9 L 07050-5) NRBC/100 WBC (test See_Comment [Automat ed code = 5990031767) message] The system which generated this result transmitted reference range : 0.0 - 10.0 /100 WBCs. The refer ence range was not u sed to interpret th is result as normal/abnormal . NRBC x10^3 (test code <0.01 See_Comment [Auto mated = 3270052826) message] The s ystem which generated this result transmitted reference range : 10*3/?L. The reference range was not used to interpret this result as normal/abnormal . GRAN MAT (NEUT) % 53.7 % (test code = 770-8) IMM GRAN % (test code 0.90 % = 9564987459) LYMPH % (test code = 32.6 % 736-9) MONO % (test code = 10.1 % 5905-5) EOS % (test code = 1.5 % 713-8) BASO % (test code = 1.2 % 706-2) GRAN MAT x10^3(ANC) 4.98 10*3/uL 1.88-7.09 (test code = 1435226971) IMM GRAN x10^3 (test 0.08 10*3/uL 0.00-0.06 H code = 9092465680) LYMPH x10^3 (test code 3.02 10*3/uL 1.32-3.29 = 731-0) MONO x10^3 (test code 0.94 10*3/uL 0.33-0.92 H = 742-7) EOS x10^3 (test code = 0.14 10*3/uL 0.03-0.39 711-2) BASO x10^3 (test code 0.11 10*3/uL 0.01-0.07 H = 704-7) Lab Interpretation Abnormal (test code = 24824-2) [facility] TylerPONC GLUCOSE (AUTOMATED)2021-11-23 20:17:33 Test Item Value Reference Range Interpretation Comments POCT GLU (test code = 111 mg/dL 70-110 H Notifi ed Provider [id number]) Lab Interpretation (test Abnormal code = 57006-5) [facility] TylerPA TEST, THINPREP, [id number] 00:00:00 Test Item Value Reference Range Interpretation Comments SOURCE: (test code = Endocervical 8001) SLIDES: (test code = 1 8011) LMP: (test code = 8021) 06/03/2021 SPECIMEN ADEQUACY: (test (NOTE) code = 01554) INTERPRETATION: (test ASCUS/EPITH. code = 37343) ABNORMALITY; SEE BELOW DIRECTOR OF DEVELOPMENT AND MARKETING: (test Anusha code = 8101) CHANA Sepulveda(ASCP)[facility] PATHOLOGIST Nahid Russell, INTERPRETATION BY: (test M.D. code = 8122) LOCATION: (test code = (NOTE) 57224) CPT: (test code = 8140) (NOTE) PAP TEST, THINPREP, [id number] 00:00:00 Test Item Value Reference Range Interpretation Comments SOURCE: (test code = Endocervical 8001) SLIDES: (test code = 1 8011) LMP: (test code = 8021) 06/03/2021 SPECIMEN ADEQUACY: (test (NOTE) code = 17215) INTERPRETATION: (test ASCUS/EPITH. code = 64673) ABNORMALITY; SEE BELOW DIRECTOR OF DEVELOPMENT AND MARKETING: (test Anusha code = 8101) CHANA Sepulveda(ASCP)[facility] PATHOLOGIST Nahid Russell, INTERPRETATION BY: (test M.D. code = 8122) LOCATION: (test code = (NOTE) 54536) CPT: (test code = 8140) (NOTE) PAP TEST, THINPREP, [id number] 00:00:00 Test Item Value Reference Range Interpretation Comments SOURCE: (test code = Endocervical 8001) SLIDES: (test code = 1 8011) LMP: (test code = 8021) 06/03/2021 SPECIMEN ADEQUACY: (test (NOTE) code = 55173) INTERPRETATION: (test ASCUS/EPITH. code = 56283) ABNORMALITY; SEE BELOW DIRECTOR OF DEVELOPMENT AND MARKETING: (test Anusha code = 8101) CHANA Sepulveda(ASCP)[facility] PATHOLOGIST Nahid Russell, INTERPRETATION BY: (test M.D. code = 8122) LOCATION: (test code = (NOTE) 52400) CPT: (test code = 8140) (NOTE) PAP TEST, THINPREP, [id number] 00:00:00 Test Item Value Reference Range Interpretation Comments SOURCE: (test code = Endocervical 8001) SLIDES: (test code = 1 8011) LMP: (test code = 8021) 06/03/2021 SPECIMEN ADEQUACY: (test (NOTE) code = 46223) INTERPRETATION: (test ASCUS/EPITH. code = 41774) ABNORMALITY; SEE BELOW DIRECTOR OF DEVELOPMENT AND MARKETING: (test Anusha code = 8101) CHANA Sepulveda(ASCP)[facility] PATHOLOGIST Nahid Russell, INTERPRETATION BY: (test M.D. code = 8122) LOCATION: (test code = (NOTE) 94379) CPT: (test code = 8140) (NOTE) HPV HIGH RISK WITH GENOTYPE, [id number] 00:00:00 Test Item Value Reference Range Interpretation Comments HPV HIGH RISK INTERP (test code = POSITIVE 28954) HPV 16 (test code = 85690) POSITIVE HPV 18 (test code = 36040) NEGATIVE HPV, HR, OTHER GENOTYPES (test code POSITIVE = 77461) HPV HIGH RISK WITH GENOTYPE, [id number] 00:00:00 Test Item Value Reference Range Interpretation Comments HPV HIGH RISK INTERP (test code = POSITIVE 92997) HPV 16 (test code = 32835) POSITIVE HPV 18 (test code = 66657) NEGATIVE HPV, HR, OTHER GENOTYPES (test code POSITIVE = 40589) HPV HIGH RISK WITH GENOTYPE, [id number] 00:00:00 Test Item Value Reference Range Interpretation Comments HPV HIGH RISK INTERP (test code = POSITIVE 19506) HPV 16 (test code = 11738) POSITIVE HPV 18 (test code = 72566) NEGATIVE HPV, HR, OTHER GENOTYPES (test code POSITIVE = 11405) HPV HIGH RISK WITH GENOTYPE, [id number] 00:00:00 Test Item Value Reference Range Interpretation Comments HPV HIGH RISK INTERP (test code = POSITIVE 03528) HPV 16 (test code = 59989) POSITIVE HPV 18 (test code = 68135) NEGATIVE HPV, HR, OTHER GENOTYPES (test code POSITIVE = 52947) [id number] 03:22:48 Test Item Value Reference Range Interpretation Comments APPEARANCE (test code = Hazy Clear A 0019317177) COLOR (test code = Yellow Yellow 8664377943) PH (test code = 4.8-8.0 9232356917) SP GRAVITY (test code = 1.003-1.030 1548777139) GLU U QUAL (test code = Normal Normal 7528677078) BLOOD (test code = Negative Negative Interfere nce from 2519976980) ascorbic acid m ay cause false neg ative results. KETONES (test code = 5 mg/dL Negative A 8716731649) PROTEIN (test code = Negative Negative 2887-8) UROBILIN (test code = 4.0 mg/dL Normal A 7233525310) BILIRUBIN (test code = Negative Negative 4392403716) NITRITE (test code = Negative Negative 0754910157) LEUK GRUPO (test code = Negative Negative 8749630124) RBC/HPF (test code = See_Comment [Autom ated message] 6598021405) The system [employer] generated this result transmitted ref erence range: 0 - 3 HP F. The reference range was not used to int erpret this result as normal/abnormal . WBC/HPF (test code = <1 See_Comment [Autom ated message] 0817977251) The system [employer] generated this result transmitted ref erence range: 0 - 5 HP F. The reference range was not used to int erpret this result as normal/abnormal . BACTERIA (test code = Few Negative A 6609439511) SQ EPITH (test code = HPF 3581574275) Lab Interpretation Abnormal (test code = 37396-4) [facility] TylerURINALYSIS2021-[facility]-29 03:22:48 Test Item Value Reference Range Interpretation Comments APPEARANCE (test code = Hazy Clear A 3840541618) COLOR (test code = Yellow Yellow 4752605601) PH (test code = 4.8-8.0 5745181973) SP GRAVITY (test code = 1.003-1.030 6919726661) GLU U QUAL (test code = Normal Normal 5089383003) BLOOD (test code = Negative Negative 7249968228) KETONES (test code = 5 mg/dL Negative A 9260612714) PROTEIN (test code = Negative Negative 2887-8) UROBILIN (test code = 4.0 mg/dL Normal A 1970513925) BILIRUBIN (test code = Negative Negative 1443922384) NITRITE (test code = Negative Negative 5475426404) LEUK GRUPO (test code = Negative Negative 7640448306) RBC/HPF (test code = See_Comment [Autom ated message] 7652402292) The system [employer] generated this result transmit sherice reference range : 0 - 3 HPF. The refe rence range was not u sed to interpret th is result as normal/abnormal . WBC/HPF (test code = <1 See_Comment [Autom ated message] 1858110957) The system [employer] generated this result transmit sherice reference range : 0 - 5 HPF. The refe rence range was not u sed to interpret th is result as normal/abnormal . BACTERIA (test code = Few Negative A 4140222211) SQ EPITH (test code = HPF 4973108575) Lab Interpretation (test Abnormal code = 63362-3) [facility] [id number] 02:45:00 Test Item Value Reference Interpretation Comments Range TROPONIN I (test 0.002 ng/mL See_Comment [Automated code = 6441493899) message] The system which generated this result [...] biotin. Lab Interpretation Normal (test code = 08105-3) [facility] [id number] 02:45:00 Test Item Value Reference Range Interpretation Comments TROPONIN I (test code = 0.002 ng/mL See_Comment [Au tomated 1049015023) message] The sy stem which generated this result transmitted reference range : <=0.034. The reference range was not used to interpret this result as normal/abnormal . LYNDSAY (test code = LYNDSAY) Lab Interpretation Normal (test code = 37792-7) [facility] TylerN-TERMINAL [id number] 02:41:57 Test Item Value Reference Range Interpretation Comments NT-proBNP (test code 169 pg/mL See_Comment H [Autom ated = 8550908569) message] The system which generated this result transmitted reference range : <=125. The reference range was not used to interpret this result as normal/abnormal . LYNDSAY (test code = LYNDSAY) Biotin has been reported to cause a negative bias, interpret results relative to patient's use of biotin. Lab Interpretation Abnormal (test code = 45149-5) [facility] TylerN-TERMINAL [id number] 02:41:57 Test Item Value Reference Range Interpretation Comments NT-proBNP (test code = 169 pg/mL See_Comment H [Aut omated message] 7389303217) The system [employer] generated this result transmit sherice reference range : <=125. The refe rence range was not u sed to interpret th is result as normal/abnormal . LYNDSAY (test code = LYNDSAY) Lab Interpretation (test Abnormal code = 06036-5) [facility]. METABOLIC PANEL (12000)2021-03-17 02:09:13 Test Item Value Reference Range Interpretation Comments NA (test code = 137 mmol/L 135-145 4152043008) K (test code = 4.2 mmol/L 3.5-5.0 6652715861) CL (test code = 102 mmol/L 98-108 3593557263) CO2 TOTAL (test code = 25 mmol/L 23-31 9370736012) AGAP (test code = 2-16 8074222925) BUN (test code = 18 mg/dL 7-23 9957553377) GLUCOSE (test code = 144 mg/dL 70-110 H 7270229048) CREATININE (test code = 0.77 mg/dL 0.50-1.04 5742257495) TOTAL BILI (test code = 0.4 mg/dL 0.1-1.6 8140229070) CALCIUM (test code = 8.9 mg/dL 8.6-10.6 0274657653) T PROTEIN (test code = 6.8 g/dL 6.3-8.2 7992047571) ALBUMIN (test code = 3.9 g/dL 3.5-5.0 5958267682) ALK PHOS (test code = 84 U/L 34-122 5605123911) ALTv (test code = 13 U/L 5-35 1742-6) AST(SGOT) (test code = 17 U/L 13-40 4567896001) eGFR (test code = mL/min/1.73m2 1749672586) LYNDSAY (test code = LYNDSAY) Association of [...] tests). Lab Interpretation Abnormal (test code = 51339-1) [facility]. METABOLIC PANEL (31897)2021-03-17 02:09:13 Test Item Value Reference Range Interpretation Comments NA (test code = 7149362083) 137 mmol/L 135-145 K (test code = 1403677823) 4.2 mmol/L 3.5-5.0 CL (test code = 2241874848) 102 mmol/L 98-108 CO2 TOTAL (test code = 0674472542) 25 mmol/L 23-31 AGAP (test code = 8087506472) 2-16 BUN (test code = 8801072145) 18 mg/dL 7-23 GLUCOSE (test code = 2433992265) 144 mg/dL 70-110 H CREATININE (test code = 0.77 mg/dL 0.50-1.04 2838570249) TOTAL BILI (test code = 0.4 mg/dL 0.1-1.5 4383821890) CALCIUM (test code = 3278482988) 8.9 mg/dL 8.6-10.6 T PROTEIN (test code = 8502359667) 6.8 g/dL 6.3-8.2 ALBUMIN (test code = 2271906470) 3.9 g/dL 3.5-5.0 ALK PHOS (test code = 9640481801) 84 U/L 34-122 ALTv (test code = 1742-6) 13 U/L 5-35 AST(SGOT) (test code = 6806411118) 17 U/L 13-40 eGFR (test code = 6199238164) mL/min/1.73m2 LYNDSAY (test code = LYNDSAY) Lab Interpretation (test code = Abnormal 07141-6) [facility] WITH [id number] 01:56:33 Test Item Value Reference Range Interpretation [...] (test code = 55.5 fL 39.0-49.9 H 59115-3) RDW-CV (test code = 18.9 % 12.0-15.5 H 788-0) PLT (test code = See_Comment H [Automated 777-3) message] The sy stem which generated this result transmitted reference range : 166 - 358 10*3/ ?L. The reference r zoe was not used to interpret this result as normal/abnormal . MPV (test code = 8.2 fL 9.5-12.9 L 02660-7) NRBC/100 WBC (test See_Comment [Automat ed code = 4559356020) message] The system which generated this result transmitted reference range : 0.0 - 10.0 /100 WBCs. The refer ence range was not u sed to interpret th is result as normal/abnormal . NRBC x10^3 (test code <0.01 See_Comment [Auto mated = 3069492093) message] The s ystem which generated this result transmitted reference range : 10*3/?L. The reference range was not used to interpret this result as normal/abnormal . GRAN MAT (NEUT) % 61.7 % (test code = 770-8) IMM GRAN % (test code 0.80 % = 9854949096) LYMPH % (test code = 28.5 % 736-9) MONO % (test code = 6.3 % 5905-5) EOS % (test code = 1.8 % 713-8) BASO % (test code = 0.9 % 706-2) GRAN MAT x10^3(ANC) 7.31 10*3/uL 1.88-7.09 H (test code = 7861788869) IMM GRAN x10^3 (test 0.09 10*3/uL 0.00-0.06 H code = 6576932697) LYMPH x10^3 (test code 3.38 10*3/uL 1.32-3.29 H = 731-0) MONO x10^3 (test code 0.75 10*3/uL 0.33-0.92 = 742-7) EOS x10^3 (test code = 0.21 10*3/uL 0.03-0.39 711-2) BASO x10^3 (test code 0.11 10*3/uL 0.01-0.07 H = 704-7) Lab Interpretation Abnormal (test code = 36476-4) [facility] WITH [id number] 01:56:33 Test Item Value Reference Range Interpretation [...] (test code = 55.5 fL 39.0-49.9 H 07379-4) RDW-CV (test code = 18.9 % 12.0-15.5 H 788-0) PLT (test code = See_Comment H [Automated 777-3) message] The sy stem which generated this result transmitted reference range : 166 - 358 10*3/ ?L. The reference r zoe was not used to interpret this result as normal/abnormal . MPV (test code = 8.2 fL 9.5-12.9 L 40893-8) NRBC/100 WBC (test See_Comment [Automat ed code = 5788349024) message] The system which generated this result transmitted reference range : 0.0 - 10.0 /100 WBCs. The refer ence range was not u sed to interpret th is result as normal/abnormal . NRBC x10^3 (test code <0.01 See_Comment [Auto mated = 6769391533) message] The s ystem which generated this result transmitted reference range : 10*3/?L. The reference range was not used to interpret this result as normal/abnormal . GRAN MAT (NEUT) % 61.7 % (test code = 770-8) IMM GRAN % (test code 0.80 % = 4155171803) LYMPH % (test code = 28.5 % 736-9) MONO % (test code = 6.3 % 5905-5) EOS % (test code = 1.8 % 713-8) BASO % (test code = 0.9 % 706-2) GRAN MAT x10^3(ANC) 7.31 10*3/uL 1.88-7.09 H (test code = 3812385596) IMM GRAN x10^3 (test 0.09 10*3/uL 0.00-0.06 H code = 0186548067) LYMPH x10^3 (test code 3.38 10*3/uL 1.32-3.29 H = 731-0) MONO x10^3 (test code 0.75 10*3/uL 0.33-0.92 = 742-7) EOS x10^3 (test code = 0.21 10*3/uL 0.03-0.39 711-2) BASO x10^3 (test code 0.11 10*3/uL 0.01-0.07 H = 704-7) Lab Interpretation Abnormal (test code = 74827-2) [facility] 01:38:12 Test Item Value Reference Range Interpretation Comments SARS-CoV-2 Rapid ID NOW Not Detected Not Detected (test code = 77811-3) LYNDSAY (test code = LYNDSAY) ID NOW COVID-19 Assay is an isothermal nucleic acid amplification test intended for the qualitative detection of nucleic acid from SARS-CoV-2 viral RNA in nasopharyngeal ([employer]) specimens. It is used under Emergency Use [...] indicated. Lab Interpretation Normal (test code = 24824-0) [facility]2021-[facility]-17 01:38:12 Test Item Value Reference Range Interpretation Comments SARS-CoV-2 Rapid ID NOW (test Not Detected Not Detected code = 41773-8) LYNDSAY (test code = LYNDSAY) Lab Interpretation (test code = Normal 38329-2) [facility]2021-02-19 17:42:45 Test Item Value Reference Range Interpretation Comments SARS-CoV-2 Rapid ID NOW Not Detected Not Detected (test code = 88485-6) LYNDSAY (test code = LYNDSAY) ID NOW COVID-19 Assay is an isothermal nucleic acid amplification test intended for the qualitative detection of nucleic acid from SARS-CoV-2 viral RNA in nasopharyngeal (HARDWOOD FLOOR INSTALLER) specimens. It is used under Emergency Use [...] indicated. Lab Interpretation Normal (test code = 94852-4) [facility] ABDOMEN PELVIS W [id number] 17:24:55Thickening of the gastric antrum and duodenal bulb could be fromunderdistention, the differential would include sequela of peptic ulcerdisease. No findings of ulcer perforation. Otherwise, no acute intra- abdominal or pelvic abnormality. Stable thickening and nodularity of the left adrenal gland. RL: [id number] Patient name: EUSEBIA ONTIVEROSSharon: 1970 51 years EXAMINATION: CT ABDOMEN PELVIS [...] 12:26 PM CDT Patient name: EUSEBIA MCCABE WESTHOPEDOB: 1970 51 years EXAMINATION: CT ABDOMEN PELVIS [...] APPEARANCE (test code = Hazy Clear A 4914605432) COLOR (test code = Mabel Yellow A 5672263437) PH (test code = 4.8-8.0 5659777513) SP GRAVITY (test code = 1.003-1.030 H 2519132464) GLU U QUAL (test code = Normal Normal 3519509357) BLOOD (test code = Negative Negative 8629741448) KETONES (test code = 5 mg/dL Negative A 1300909643) PROTEIN (test code = 30 mg/dL Negative A 2887-8) UROBILIN (test code = 4.0 mg/dL Normal A 1397580927) BILIRUBIN (test code = 4 mg/dL Negative A 4563155191) NITRITE (test code = Negative Negative 2810116788) LEUK GRUPO (test code = Negative Negative 5767068230) RBC/HPF (test code = See_Comment H [Autom ated message] 7431884997) The system [employer] generated this result transmit sherice reference range : 0 - 3 HPF. The refe rence range was not u sed to interpret th is result as normal/abnormal . WBC/HPF (test code = See_Comment H [Autom ated message] 5814701005) The system [employer] generated this result transmit sherice reference range : 0 - 5 HPF. The refe rence range was not u sed to interpret th is result as normal/abnormal . BACTERIA (test code = Few Negative A 4333869128) MUCOUS (test code = Moderate Negative LPF A 8207085635) SQ EPITH (test code = HPF 6630365361) CA OXALATE (test code = See_Comment H [Au tomated message] 1491921511) The system [employer] generated this result transmit sherice reference range : <=1 HPF. The refere nce range was not u sed to interpret th is result as normal/abnormal . Ictotest (test code = Negative 4280680720) Lab Interpretation (test Abnormal code = 64178-9) [facility] Tyler[facility] Metabolic [id number] 16:34:55 Test Item Value Reference Range Interpretation Comments NA (test code = 139 mmol/L 135-145 1049028954) K (test code = 4.3 mmol/L 3.5-5.0 3688838060) CL (test code = 105 mmol/L 98-108 2133147537) CO2 TOTAL (test code 26 mmol/L 23-31 = 0741267986) AGAP (test code = 2-16 3727346649) BUN (test code = 11 mg/dL 7-23 8832218112) GLUCOSE (test code = 95 mg/dL 70-110 6778218259) CREATININE (test code 0.70 mg/dL 0.50-1.04 = 3297952597) TOTAL BILI (test code 0.6 mg/dL 0.1-1.1 = 6127498806) CALCIUM (test code = 8.9 mg/dL 8.6-10.6 9205128356) T PROTEIN (test code 7.7 g/dL 6.3-8.2 = 4102333439) ALBUMIN (test code = 4.1 g/dL 3.5-5.0 3374982075) ALK PHOS (test code = 79 U/L 34-122 4566521369) ALTv (test code = 10 U/L 5-35 1742-6) AST(SGOT) (test code 22 U/L 13-40 = 8168608649) eGFR (test code = mL/min/1.73m2 7581915207) LYNDSAY (test code = LYNDSAY) Association of [...] or urine or abnormalities in imaging tests). [facility] TylerLipase, [id number] 16:34:14 Test Item Value Reference Range Interpretation Comments LIPASE (test code = 8097635472) 45 U/L 0-220 Lab Interpretation (test code = Normal 14145-9) [facility] TylerCBC with [id number] 16:21:12 Test Item Value Reference Range Interpretation Comments WBC (test code = See_Comment [Automated 6027-2) message] The sy stem which generated this result transmitted reference range : 4.30 - 11.10 10*3/?L. The reference range was not used to interpret this result as normal/abnormal . RBC (test code = See_Comment [Automated 349-6) message] The sy stem which generated this [...] (test code = 54.4 fL 39.0-49.9 H 75657-6) RDW-CV (test code = 18.3 % 12.0-15.5 H 788-0) PLT (test code = See_Comment H [Automated 777-3) message] The sy stem which generated this result transmitted reference range : 166 - 358 10*3/ ?L. The reference r zoe was not used to interpret this result as normal/abnormal . MPV (test code = 8.5 fL 9.5-12.9 L 65785-6) NRBC/100 WBC (test See_Comment [Automat ed code = 0339709469) message] The system which generated this result transmitted reference range : 0.0 - 10.0 /100 WBCs. The refer ence range was not u sed to interpret th is result as normal/abnormal . NRBC x10^3 (test code <0.01 See_Comment [Auto mated = 3129043609) message] The s ystem which generated this result transmitted reference range : 10*3/?L. The reference range was not used to interpret this result as normal/abnormal . GRAN MAT (NEUT) % 78.3 % (test code = 770-8) IMM GRAN % (test code 0.40 % = 2641527712) LYMPH % (test code = 15.4 % 736-9) MONO % (test code = 4.8 % 5905-5) EOS % (test code = 0.1 % 713-8) BASO % (test code = 1.0 % 706-2) GRAN MAT x10^3(ANC) 7.15 10*3/uL 1.88-7.09 H (test code = 9308049834) IMM GRAN x10^3 (test 0.04 10*3/uL 0.00-0.06 code = 7864444545) LYMPH x10^3 (test code 1.41 10*3/uL 1.32-3.29 = 731-0) MONO x10^3 (test code 0.44 10*3/uL 0.33-0.92 = 742-7) EOS x10^3 (test code = <0.03 0.03-0.39 L 711-2) BASO x10^3 (test code 0.09 10*3/uL 0.01-0.07 H = 704-7) Lab Interpretation Abnormal (test code = 57143-9) [facility]
[2023-03-02 17:44] LABS: Absolute Lymphocytes (CBC) 3.3 K/uL (0.7-4.9); Hematocrit 45.3 % (36.0-45.0); MCV 84.5 fL (80-100); MPV 6.8 fL (7.6-11.3); Platelets 484 thou/uL (152-406); RBC Red Blood Cell Count 5.37 M/uL (3.86-4.86)
[2023-03-02 17:45] LABS: Anisocytosis 1+; Blood Morphology Comment NOTED (NOT SEEN); Platelet Estimate INCR; White Blood Cell Scan OK (OK)
--- NOTE | 2023-03-02 17:54 | RAD REPORT ---
EXAM DESCRIPTION: MRI - Lumbar Spine Sushma Shaver- 03/02/2023 5:43 pm CLINICAL HISTORY: Pain;Numbness/tingling Back pain, radiculopathy COMPARISON: <Comparisons> FINDINGS: Vertebral body heights are within normal limits. No aggressive marrow pattern is observed. No fracture is suspected. The conus medullaris terminates at a normal level. No thickening of the cauda equina or clumping of n erve roots seen. L1-2 level: No significant findings. L2-3 level: Mild concentric posterior disc bulge is seen causing mild central canal narrowing. Both l ateral recesses are attenuated. Mild anterior inferior aspect of both exit foramina. L3-4 level: Moderate posterior disc bulge is present with probable central protrusion of disc materia l. Moderate facet ligamentum flavum hypertrophy. Both lateral recesses are narrowed and central canal significantly narrowed. Mild bilateral exit foraminal stenosis. L4-5 level: Degenerative disc disease with moderate posterior disc bulge and small central disc herni ation. Moderate central canal stenosis. Both lateral recesses are narrowed. Mild narrowing of both ex it foramina. L5-S1 level: Small central disc protrusion is seen with small posterior annular fissure. Mild facet h ypertrophy. Moderate narrowing of either exit foramen. IMPRESSION: Moderate spondylosis is present at L2-3, L3-4, L4-5 and L5-S1. Significant central canal stenosis is present at L3-4.
[2023-03-02] MEDS ORDERED: LIDOCAINE 4% PATCH ONE (18:22)
[2023-03-02] MEDS ORDERED: dexAMETHasone 10 MG/ML VIAL ONE ×2 (18:55→18:56)
[2023-03-02] MEDS ORDERED: KETOROLAC 30 MG/ML INJ ONE (18:56)
--- NOTE | 2023-03-02 18:58 | ER ---
Nurse's Notes [facility] Name: Heather Coon Age: 53 yrs Sex: Female : 1970 Arrival Date: 03/02/2023 Time: 16:45 Bed 5 Private MD: Diagnosis: Low back pain-chronic Presentation: 03/02 16:45 Chief complaint: EMS states: history of chronic back pain with recent fall, pt seen in aa5 ER recently for fall and pain has not improved since then. 16:45 Coronavirus screen: At this time, the client does not indicate any symptoms associated aa with coronavirus-19. Ebola Screen: Patient denies travel to an Ebola-affected area in the 21 days before illness onset. Initial Sepsis Screen: Does the patient meet any 2 criteria? No. Patient's initial sepsis screen is negative. Does the patient have a suspected source of infection? No. Patient's initial sepsis screen is negative. Risk Assessment: Do you want to hurt yourself or someone else? Patient reports no desire to harm self or others. Onset of symptoms is unknown. 16:45 Acuity: ANDER 3 aa5 16:45 Method Of Arrival: EMS: [facility] aa5 Historical: - Allergies: 16:48 fluoxetine; aa5 16:48 Green Tea; aa5 16:48 Keppra; not an allergy, pt reports continued seizures while taking medication; aa5 - PMHx: 16:48 Anxiety; Arthritis; Bipolar disorder; Cancer-Cervical; Chronic obstructive lung aa5 disease; Chronic pain; Congestive heart failure; Depression; Diverticulitis; Herniated Back Disc; Hypertension; intestinal mass; Myocardial infarction; pt reports hx of seizures; Spastic Muscles; stroke; - PSHx: 16:48 cervical fusion; Cholecystectomy; foot; Tonsillectomy; aa5 - Social history:: Smoking status: Patient reports the use of cigarette tobacco products, smokes one-half pack cigarettes per day. Screenin:42 [facility] ED Fall Risk Assessment (Adult) History of falling in the last 3 months, rs5 including since admission Yes- single mechanical fall (1 pt) Confusion or Disorientation No (0 pts) Intoxicated or Sedated No (0 pts) Impaired Gait Yes (1 pt) Mobility Assist Device Used Yes (1 pt) Altered Elimination No (0 pt) Score/Fall Risk Level 3 or more points = High Risk Oriented to surroundings, Maintained a safe environment, Educated pt \T\ family on fall prevention, incl call for assistance when getting out of bed, Assessed \T\ reinforced patient's understanding of fall precautions, Provided non-skid footwear. 16:42 Abuse screen: Denies threats or abuse. Nutritional screening: No deficits noted. rs5 Tuberculosis screening: No symptoms or risk factors identified. Assessment: 16:42 General: Appears in no apparent distress. uncomfortable, Behavior is cooperative, rs5 anxious. Pain: Complains of pain in lower back Pain radiates to lower extremeties bilaterally Pain currently is 8 out of 10 on a pain scale. Quality of pain is described as aching, sharp, tingling, Pain began chronic, worsening for past week Is continuous, Alleviated by repositioning. 16:42 Neuro: Level of Consciousness is awake, alert, obeys commands, Oriented to person, rs5 place, time, situation, Bobbin Inspector are equal bilaterally Paresis from waist down, Gait is unsteady. Cardiovascular: Rhythm is regular. Respiratory: Airway is patent Respiratory effort is even, unlabored, Respiratory pattern is regular, symmetrical. GI: Abdomen is round non-distended. : No signs and/or symptoms were reported regarding the genitourinary system. EENT: No signs and/or symptoms were reported regarding the EENT system. Derm: Skin is pink, warm \T\ dry. Musculoskeletal: Range of motion: limited in lower extremeties bilaterally Reports numbness in lower extremeties bilaterally tingling sensation in lower extremities bilaterally. 16:45 Reassessment: Seizure activity noted lasting approximately 10 seconds, witnessed by me aa5 and EMS personnel. No post-ictal states noted, pt is A\T\O x 4. 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 . 17:00 Reassessment: Patient is alert, oriented x 3, equal unlabored respirations, skin rs5 warm/dry/pink. 17:00 Neuro: Level of Consciousness is awake, alert, obeys commands, Oriented to person, rs5 place, time, situation, Bobbin Inspector are equal bilaterally Paresis from waist down. Neuro: Musculoskeletal: Range of motion: limited in lower extremeties bilaterally. 17:15 General: Pt heading to MRI. rs5 17:47 Reassessment: Patient is alert, oriented x 3, equal unlabored respirations, skin rs5 warm/dry/pink. General: Pt returned from MRI. Pain: Complains of pain in lower back Pain radiates to lower extremeties bilaterally Pain currently is 8 out of 10 on a pain scale. Quality of pain is described as aching, sharp, provider notified. Neuro: Level of Consciousness is awake, alert, obeys commands, Oriented to person, place, time, situation. 18:00 Reassessment: Pt assisted to bedside commode for urine collection. Pt complaining of rs5 10/10 lower back pain, provider notified. Pt assisted back into bed. 18:29 Reassessment: Patient is alert, oriented x 3, equal unlabored respirations, skin rs5 warm/dry/pink. General: Provider notified. Pain: Complains of pain in lower back Pain radiates to lower extremeties bilaterally Pain currently is 10 out of 10 on a pain scale. Quality of pain is described as aching, sharp, provider notified. 19:14 Reassessment: Patient is alert, oriented x 3, equal unlabored respirations, skin rs5 warm/dry/pink. Pt asked to be discharged due to inadequate pain relief. Provider notified. Vital Signs: 16:45 BP 172 / 122; Pulse 124; Resp 20 S; Temp 99.9(O); Pulse Ox 98% on R/A; Pain 10/10; aa5 16:46 BP 137 / 93; Pulse 120; Resp 19; Temp 99.1; Pulse Ox 99% on R/A; rs5 17:00 BP 140 / 90; Pulse 117; Resp 18; Pulse Ox 98% ; rs5 18:57 BP 141 / 102; Pulse 109; Resp 18; Pulse Ox 98% on R/A; ld1 16:45 Pain Scale: Adult aa5 ED Course: 16:42 Patient has correct armband on for positive identification. Bed in low position. Call rs5 light in reach. Side rails up X2. Seizure precautions initiated. 16:45 Arm band placed on Patient placed in an exam room, on a stretcher. aa5 16:46 Patient arrived in ED. mb9 16:46 Chel Esteban FNP-C is PHCP. kb 16:46 Derrick Santillan MD is Attending Physician. kb 16:51 Triage completed. aa5 17:00 Inserted saline lock: 22 gauge in left antecubital area, using aseptic technique. Blood rs5 collected. 17:08 oRn Chavez, RN is Primary Nurse. rs5 17:45 MRI Lumbar Spine wo Con In Process Unspecified. EDMS 19:16 No provider procedures requiring assistance completed. rs5 Administered Medications: 17:02 Drug: Ativan IVP 2 mg Route: IVP; Site: left antecubital; aa5 17:47 Follow up: No adverse effects noted rs5 18:19 Drug: Lidoderm Topical Patch 5 % (700 mg/patch) 1 patches Route: Topical; Site: rs5 affected area; 18:28 Follow up: No adverse reaction noted, pt reports no pain relief. Pain level currently rs5 04/28 18:59 Drug: Ketorolac IVP 15 mg Route: IVP; Site: left antecubital; rs5 19:10 Follow up: No adverse reaction noted rs5 18:59 Drug: Decadron - Dexamethasone IVP 10 mg Route: IVP; Site: left antecubital; rs5 19:10 Follow up: No adverse reaction noted rs5 Medication: 19:17 VIS not applicable for this client. rs5 Intake: Outcome: 18:58 Discharge ordered by . kb 19:16 Discharged to home via wheelchair. rs5 19:16 Condition: stable 19:16 Discharge instructions given to patient, Instructed on discharge instructions, follow up and referral plans. medication usage, Pt refused to sign discharge paperwork. Noted, pt placed discharged paperwork in trash can before leaving 19:23 Patient left the ED. rs5 Signatures: Dispatcher [employer] EDWA Chel Esteban, INFORMATION AND DATA ARCHITECT ANALYST-C INFORMATION AND DATA ARCHITECT ANALYST-CkAna Levy, RN RN aa5 Randee Fisher RN RN [email or web address] Shy Gonzalez, RN RN mb9 Ron Chavez, RN RN rs5 Corrections: (The following items were deleted from the chart) 16:48 16:47 Arm band placed on Patient placed in an exam room, on a stretcher, aa5 aa5 17:32 16:42 Neuro: Level of Consciousness is awake, alert, obeys commands, Oriented to rs5 person, place, time, situation, rs5 17:40 17:00 Musculoskeletal: Range of motion: limited in lower extremeties bilaterally rs5 rs5 18:06 16:47 BP 137 / 93; Pulse 120bpm; Resp 18bpm; Pulse Ox 99% RA; rs5 rs5 03/03 08:03/02 19:16 IV discontinued, intact, bleeding controlled, No redness/swelling at site. rs5 rs5 03/03 19:16 Discharge instructions given to patient, Instructed on discharge rs5 instructions, follow up and referral plans. medication usage, rs5 03/03 17:47 Pain: Complains of pain in lower back Pain radiates to lower extremeties rs5 bilaterally Pain currently is 8 out of 10 on a pain scale. Quality of pain is described as aching, sharp, rs5 03/03 18:29 Pain: Complains of pain in lower back Pain radiates to lower extremeties rs5 bilaterally Pain currently is 10 out of 10 on a pain scale. Quality of pain is described as aching, sharp, rs5
--- NOTE | 2023-03-02 18:58 | EDPHYS ---
Physician Documentation [facility] Name: Heather Coon Age: 53 yrs Sex: Female : 1970 Arrival Date: 03/02/2023 Time: 16:45 Bed 5 Private MD: JACKELINE Physician Derrick Santillan HPI: 03/02 22:50 This 53 yrs old Female presents to ER via EMS with complaints of Back Pain. kb 22:50 The patient presents with pain that is acute, that is chronic. The symptoms are located kb in the low back. Onset: The symptoms/episode began/occurred today. The pain radiates to the right leg and left leg. Associated signs and symptoms: Pertinent positives: numbness, tingling. The problem was sustained from a chronic condition. Modifying factors: The patient symptoms are alleviated by nothing, the patient symptoms are aggravated by any movement. Severity of symptoms: At their worst the symptoms were moderate, in the emergency department the symptoms are unchanged. The patient has experienced similar episodes in the past. The patient has not recently seen a physician. Pt reports chronic back pain and that she is supposed to have surgery on lumbar spine. States she started having increased pain today with numbness and tingling to lower extremities with bladder incontinence. . Historical: - Allergies: 16:48 fluoxetine; aa5 16:48 Green Tea; aa5 16:48 Keppra; not an allergy, pt reports continued seizures while taking medication; aa5 - PMHx: 16:48 Anxiety; Arthritis; Bipolar disorder; Cancer-Cervical; Chronic obstructive lung aa5 disease; Chronic pain; Congestive heart failure; Depression; Diverticulitis; Herniated Back Disc; Hypertension; intestinal mass; Myocardial infarction; pt reports hx of seizures; Spastic Muscles; stroke; - PSHx: 16:48 cervical fusion; Cholecystectomy; foot; Tonsillectomy; aa5 - Social history:: Smoking status: Patient reports the use of cigarette tobacco products, smokes one-half pack cigarettes per day. ROS: 17:52 Constitutional: Negative for fever, chills, and weight loss. kb 17:52 Back: Positive for pain at rest, pain with movement, of the lumbar area. 17:52 All other systems are negative. 17:54 : Positive for bladder incontinence kb 17:54 Neuro: Positive for numbness, tingling, of the right leg and left leg. Exam: 17:52 Constitutional: This is a well developed, well nourished patient who is awake, alert, kb and in no acute distress. Head/Face: Normocephalic, atraumatic. ENT: Moist Mucous membranes Cardiovascular: Regular rate and rhythm with a normal S1 and S2. No gallops, murmurs, or rubs. No pulse deficits. Respiratory: Respirations even and unlabored. No increased work of breathing. Talking in full sentences Abdomen/GI: Soft, non-tender. No distention Skin: Warm, dry with normal turgor. Normal color. MS/ Extremity: Pulses equal, no cyanosis. Neurovascular intact. Full, normal range of motion. Neuro: Awake and alert, GCS 15, oriented to person, place, time, and situation. Moves all extremities. 17:52 Back: pain, that is moderate, ROM is painful, normal spinal alignment noted, vertebral tenderness, is appreciated at lumbar spine. 22:52 Neuro: Exam negative for acute changes. kb Vital Signs: 16:45 BP 172 / 122; Pulse 124; Resp 20 S; Temp 99.9(O); Pulse Ox 98% on R/A; Pain 10/10; aa5 16:46 BP 137 / 93; Pulse 120; Resp 19; Temp 99.1; Pulse Ox 99% on R/A; rs5 17:00 BP 140 / 90; Pulse 117; Resp 18; Pulse Ox 98% ; rs5 18:57 BP 141 / 102; Pulse 109; Resp 18; Pulse Ox 98% on R/A; ld1 16:45 Pain Scale: Adult aa5 MDM: 16:46 Patient medically screened. kb 17:54 Data reviewed: vital signs, nurses notes. kb 22:48 Differential diagnosis: Fracture ruptured disc, Cauda equina, chronic back pain. kb Historians other than the Patient: EMS: [facility]. Care significantly affected by the following chronic conditions: chronic back pain. Counseling: I had a detailed discussion with the patient and/or guardian regarding: the historical points, exam findings, and any diagnostic results supporting the discharge/admit diagnosis, lab results, radiology results, the need for outpatient follow up, a family practitioner, to return to the emergency department if symptoms worsen or persist or if there are any questions or concerns that arise at home. 22:51 ED course: Pt has full sensation to lower extremities. Was able to move from stretcher kb to bedside commode and provide urine sample with control of bladder. 03/02 16:47 Order name: CBC with Diff; Complete Time: 17:46 kb 03/02 16:47 Order name: Basic Metabolic Panel; Complete Time: 17:58 kb 03/02 17:45 Order name: CBC Smear Scan; Complete Time: 17:46 EDMS 03/02 17:56 Order name: Urinalysis w/ reflexes; Complete Time: 19:04 kb 03/02 16:47 Order name: MRI Lumbar Spine wo Con; Complete Time: 17:55 kb 03/02 16:47 Order name: IV Start; Complete Time: 17:00 kb Administered Medications: 17:02 Drug: Ativan IVP 2 mg Route: IVP; Site: left antecubital; aa5 17:47 Follow up: No adverse effects noted rs5 18:19 Drug: Lidoderm Topical Patch 5 % (700 mg/patch) 1 patches Route: Topical; Site: rs5 affected area; 18:28 Follow up: No adverse reaction noted, pt reports no pain relief. Pain level currently rs5 10/10 18:59 Drug: Ketorolac IVP 15 mg Route: IVP; Site: left antecubital; rs5 19:10 Follow up: No adverse reaction noted rs5 18:59 Drug: Decadron - Dexamethasone IVP 10 mg Route: IVP; Site: left antecubital; rs5 19:10 Follow up: No adverse reaction noted rs5 Disposition Summary: 03/02/23 18:58 Discharge Ordered Location: Home kb Condition: Stable kb Diagnosis - Low back pain - chronic kb Followup: kb - With: Emergency Department - When: As needed - Reason: Worsening of condition Followup: kb - With: Private Physician - When: 2 - 3 days - Reason: Recheck today's complaints, Continuance of care, Re-evaluation by your physician Discharge Instructions: - Chronic Back Pain, [id number] kb - Discharge Summary Sheet bp Forms: - Medication Reconciliation Form kb - Thank You Letter kb - Antibiotic Education kb - Prescription Opioid Use kb - Patient Portal Instructions kb - Leadership Thank You Letter kb - SBAR form bp Prescriptions: - Prednisone 20 mg Oral Tablet - take 1 tablet by ORAL route once daily for 5 days; 5 tablet; Refills: 0, kb Product Selection Permitted Signatures: Dispatcher [employer] EDMI Chel Esteban, MAINTENANCE TECHNICIAN-C MAINTENANCE TECHNICIAN-Ckb Ana Nogueira, RN RN aa5 Ron Chavez RN RN rs5 Corrections: (The following items were deleted from the chart) 17:45 16:53 Lumbar Spine Wo Con ordered. EDMI EDMS 22:48 17:52 Constitutional: This is a well developed, well nourished patient who is awake, kb alert, and in no acute distress. Head/Face: Normocephalic, atraumatic. ENT: Moist Mucous membranes Cardiovascular: Regular rate and rhythm with a normal S1 and S2. No gallops, murmurs, or rubs. No pulse deficits. Respiratory: Respirations even and unlabored. No increased work of breathing. Talking in full sentences Abdomen/GI: Soft, non-tender. No distention Skin: Warm, dry with normal turgor. Normal color. MS/ Extremity: Pulses equal, no cyanosis. Neurovascular intact. Full, normal range of motion. Neuro: Awake and alert, GCS 15, oriented to person, place, time, and situation. Moves all extremities. Normal gait. kb
[2023-03-02 19:03] LABS: Specific Gravity > 1.030 (1.005-1.030); Urine Bacteria <20 /HPF (<20); Urine Bilirubin NEGATIVE (Negative); Urine Blood 1+ (Negative); Urine Clarity Turbid (Clear); Urine Color Dark-Yellow (Yellow); Urine Glucose NEGATIVE (Negative); Urine Mucus 1+ /HPF (None Seen); Urine Protein 1+ (Negative); Urine RBC 21-50 /HPF (None Seen); Urine Urobilinogen Normal (Normal); Urine pH 6.5 (5.0-7.0)
[2023-03-02 19:52] VITALS: TEMP 99.1
[2023-03-02 19:54] VITALS: O2SAT 98
[2023-03-02 19:55] VITALS: BP 141/102
== END 2023-03-02 19:23 | disposition home or self-care (01) ==
LOC: ER 16:45
DX: M54.50 Low back pain, unspecified (principal); F17.210 Nicotine dependence, cigarettes, uncomplicated; Z88.8 Allergy status to other drugs, medicaments and biological substances; Z91.018 Allergy to other foods
CPT/HCPCS: 85025; 81001; 80048; 36415; 72148; 96375; 96374; 99284; J2001; J1100

== ENCOUNTER 2023-03-29 12:06 | Emergency (ER) | payer OTHER ==
--- OUTSIDE RECORDS SUMMARY | 2023-03-29 12:15 | XMS REPORT | Continuity of Care Document ---
:1970 Author Organization Formerly [facility] t Address [address] [facility] [address] [place] [address] Care Team Providers Name Role Phone Aneta Silva Primary Care Physician [phone] Alfonso MULLIGAN Attending Clinician Unavailable Alfonso Lopez Attending Clinician RITCHIE WARREN Attending Clinician Unavailable Ritchie Warren MD Attending Clinician Shy Beckman RN Attending Clinician Halima Mendoza MD Attending Clinician Jen Yepez MD Attending Clinician Parrish Diane MD Attending Clinician PARRISH DIANE Attending Clinician Unavailable LORENZA HER Attending Clinician Unavailable Sav Rondon MD Attending Clinician Lorenza Her MD Attending Clinician Nicole PROJECT MANAGER/TEAM COACH, Maria Teresa Attending Clinician CHANTEL MATTHEWS Attending Clinician Unavailable CHANTEL MATTHEWS Attending Clinician Unavailable Brandyn Mcfarlane MD Attending Clinician SELINA MARTINES Attending Clinician Unavailable Sam Sapna Freya Attending Clinician Glory Esteves MD Attending Clinician [phone] Selina Martines MD Attending Clinician Vaccine, [place] Pedi Attending Clinician Unavailable Jose Frederick MD Attending Clinician JOSE FREDERICK Attending Clinician Unavailable NICHELLE ALLISON Attending Clinician Unavailable Nichelle Bishop Attending Clinician Doctor Unassigned, [place] Attending Clinician Unavailable Miky Nava RN Attending [...] Date Seizure Seizure Disease [facility]urre [facility] 00:00: Medical 00 Center Cardiomyop Cardiomyop Disease Active U nivers athy athy 1-13 ity of 00:00: [place] 00 Medical Branch NSVT NSVT Disease Active [...] artery 1-12 ity of disease disease 00:00: [place] involving involving 00 Medi kwame [place] Branch coronary coronary artery of artery of chilkoot chilkoot heart heart without without angina angina pectoris pectoris Snores Snores Disease Active Univers 1-12 ity of 00:00: [place] 00 Medical Branch Cigarette Cigarette Disease Active Uni vers smoker smoker 1-12 ity of 00:00: [place] 00 Medical Branch Primary Primary Disease Active Univers hypertensi hypertensi 1-12 it y of on on 00:00: [place] 00 Medical Branch Other Other Disease Active Univers hyperlipid hyperlipid 1-12 it y of emia emia 00:00: [place] 00 Medical Branch Coronary Coronary Disease Active Unive rs artery artery 1-12 ity of disease disease 00:00: [place] involving involving 00 Medi kwame [place] Branch coronary coronary artery of artery of chilkoot chilkoot heart heart without without angina angina pectoris [...] Stop Date Source Natural mother Alcohol abuse [facility] Natural mother Cancer [facility] Natural mother Diabetes [facility] Natural mother Heart disease [facility] Natural mother Hyperlipidemia [facility] Natural mother Kidney disease [facility] Natural mother Stroke [facility] Paternal uncle Diabetes [facility] Social History Social Habit Start Date Stop Date Quantity Comments Source History SDOH Social Unive rsity of [facility] Med ical Together Branch History SDOH Social Unive rsity of [facility] History SDOH Social Unive rsity of [facility] Medical Membership Branch History SDOH Social Unive rsity of [facility] Medical Meetings Branch History of tobacco Cigarette Smoker [facility] History SDOH [facility] Alcohol Frequency [facility] History SDOH [facility] Alcohol Std Drinks Medica Center History SDOH [facility] Alcohol Binge Medical [address] Exposure to 2022-12-01 2022-12-11 Not sure University of SARS-CoV-2 (event) 00:00:00 08:54:00 [facility] Cigarettes smoked 2022-08-02 2022-08-02 [facility] [...] Social 2022-08-01 2022-08-01 5 Unive rsity of [employer] Phone 00:00:00 00:00:00 [place] M edical Branch History SDOH Social 2022-08-01 2022-08-01 5 Unive rsity of [facility] 00:00:00 00:00:00 [place] [facility] History SDOH 2022-08-01 2022-08-01 0 University o f Physical Activity 00:00:00 00:00:00 [facility] edical DPW Branch History SDOH 2022-08-01 2022-08-01 0 University o f Physical Activity 00:00:00 00:00:00 [facility] edical MPS Branch History SDOH 2022-08-01 2022-08-01 3 University o f Financial 00:00:00 00:00:00 [place] [facility] History SDOH Food 2022-08-01 2022-08-01 1 Univers ity of Worry 00:00:00 00:00:00 [place] [facility] History SDOH Food 2022-08-01 2022-08-01 1 Univers ity of Scarcity 00:00:00 00:00:00 [place] [facility] History SDOH 2022-08-01 2022-08-01 2 University o f Transport Med 00:00:00 00:00:00 [place] Medic al Branch History SDSD 2022-08-01 2022-08-01 2 University o f Transport Non-Med 00:00:00 00:00:00 [facility] edical Branch Cigarette 2022-07-31 2022-07-31 University of pack-years 00:00:00 00:00:00 [facility] Education 2022-07-31 2022-07-31 14 University of 00:00:00 00:00:00 [facility] Sex Ass[birth year] At [birth year] [facility] 00:00:00 00:00:00 [facility] Smoking Status Start Date Stop Date Source Smokes tobacco daily 2022-08-02 00:00:00 [facility] Medications Ordered Filled Start Stop Current Ordering Indication Dosage Frequency Signature Comments Components Source Medication Medication Date Date Medication? Clinician (SIG) Name Name lacosamide 2022- No 200mg 200 mg, IV Univers (VIMPAT) 5-25 05-25 Piggyback, ity of 200 mg in 19:45: 19:57 [place]CE, 1 [place] NaCl 0.9% 00 :00 dose, On Medica l (NS) 50 mL [facility] Branch piggyback 12/11/22 at 1445, Administer over 30 Minutes, 50 mL
F aculty member approving Restricted medication : Alfonso MULLIGAN ketorolac 2022- No 15mg 15 mg, Unive rs (TORADOL) 12-11 05-25 Slow IV ity of injection 18:15: 17:25 Push, [place] 15 mg 00 :00 ONCE, 1 Medical dose, On Branch [facility] 12/11/22 at 1315, IMCHAEL iopamidol 2022- No [id number] 80mL 80 mL, U nivers (ISOVUE 12-11-25 Intravenou ity o f 370-500 mL) 16:30: 16:27 s, ONCE, 1 [place] injection 00 :00 dose, On Medica l 80 mL [facility] Branch 12/11/22 at 1130, Routine nitroglycer 2022- No .5[in_u 0.5 Inch, Univers in (NITROL) 12-11-25 s] Transderma i ty of 2 % 15:30: 14:31 l (Apply [place] ointment 00 :00 To Skin), Medica l 0.5 Inch ONCE, 1 Branch dose, On [facility] 12/11/22 at 1030, MICHAEL aspirin 2022- No 324mg 324 mg, Unive rs chewable 12-11-25 Oral, ity of tablet 324 15:30: 14:30 ONCE, 1 [place] mg 00 :00 dose, On [facility] Branch 12/11/22 at 1030, Routine ondansetron 2022- No 4mg 4 mg, Slow Univers (ZOFRAN 12-11 05-25 IV Push, ity of (PF)) 15:30: 14:29 ONCE, 1 [place] injection 4 00 :00 dose, On Medi kwame mg [facility] Branch 12/11/22 at 1030, MICHAEL LORazepam 2022- No 1mg 1 mg, Slow U nivers (ATIVAN) 12-11 05-25 IV Push, ity of injection 1 15:00: 14:57 ONCE, 1 [place] mg 00 :00 dose, On Medical [facility] Branch 12/11/22 at 1000, STAT Lacosamide Yes [id number] 100mg Take 1 Univers (VIMPAT) 5-25 tablet by ity of 100 mg 00:00: mouth in [place] tablet 00 the Medical morning Branch and 1 tablet in the evening. acetaminoph 2022- No 1{tbl} 1 tablet, Univers en-codeine 11-18 Oral, ity of (TYLENOL 05:30: 05:30 ONCE, 1 [place] #3) 300-30 00 :00 dose, On Medic al mg tablet 1 Thu11/18/22 Br anch tablet at 0030, MICHAEL methocarbam 2022- No 1000mg 1,000 mg, Univers oL 11-18 Oral, ity of (ROBAXIN) 05:30: 05:30 ONCE, 1 [place] tablet 00 :00 dose, On Medical 1,000 mg [facility] 11/18/22 Bran h at 0030, MICHAEL ondansetron 2022- No 4mg 4 mg, Slow Univers (ZOFRAN 11-18 IV Push, ity of (PF)) 04:45: 03:38 ONCE, 1 [place] injection 4 00 :00 dose, On Medi kwame mg [facility] 11/17/22 Branch at 2345, MICHAEL morpHINE (4 2022- No 4mg 4 mg, Slow Univers mg/mL) 11-18 IV Push, ity of injection 4 03:45: 03:38 ONCE, 1 [place] mg 00 :00 dose, On Medical [facility] 11/17/22 Branch at 2245, Routine methocarbam 2022- No 1000mg 1,000 mg, Univers oL 11-18 Intravenou ity of (ROBAXIN) 00:30: 23:47 s, ONCE, 1 [place] injection 00 :00 dose, On Medica l 1,000 mg [facility] 11/17/22 Branc h at 1930, MICHAEL methocarbam 2022-0 Yes [id number] 1000mg Take 2 Univers oL 500 mg -02 tablets by ity of tablet 00:00: mouth 4 [place] 00 (four) Medical times Branch daily as needed for Pain (scale 7-10). methocarbam 2023-0 Yes [id number] 1000mg Take 2 Univers oL 500 mg [...] 1-13 by mouth ity of 23:49: daily. [address] omega-3 0 Yes 1g Take 1 g Univer s fatty 1-13 by mouth ity of acids-vitam 23:49: daily. [place] in E (FISH 34 Medical OIL) 1,000 Branch mg capsule loratadine 0 Yes Take by Univ ers (CLARITIN 1-13 mouth ity of LIQUI-GEL) 23:49: daily. [place] 10 mg Medical capsule Branch ondansetron 0 Yes 4mg Take 4 mg U nivers 4 mg tablet 1-13 by mouth ity of 23:49: every 8 [place] [address] (eight) Medical hours as Branch needed. pantoprazol 0 Yes 40mg Take 40 mg Univers e 40 mg EC 1-13 by mouth ity o f tablet 23:49: daily. [address] MULTIVITAMI 2022-0 Yes 1{tbl} Take 1 Tab Univers N ORAL 1-13 by mouth ity of 23:49: daily. [address] omega-3 2022-0 Yes 1g Take 1 g Univer s fatty 1-13 by mouth ity of acids-vitam 23:49: daily. [place] in E (FISH 34 Medical OIL) 1,000 Branch mg capsule loratadine 0 Yes Take by Univ ers (CLARITIN 1-13 mouth ity of LIQUI-GEL) 23:49: daily. [place] 10 mg 34 Medical capsule Branch ondansetron 2022-0 Yes 4mg Take 4 mg U nivers 4 mg tablet 1-13 by mouth ity of 23:49: every 8 [place] [address] (eight) Medical hours as Branch needed. pantoprazol 0 Yes 40mg Take 40 mg Univers e 40 mg EC 1-13 by mouth ity o f tablet 23:49: daily. [address] MULTIVITAMI Yes 1{tbl} Take 1 Tab Univers N ORAL 1-13 by mouth ity of 23:49: daily. [address] omega-3 0 Yes 1g Take 1 g Univer s fatty 1-13 by mouth ity of acids-vitam 23:49: daily. [place] in E (FISH 34 Medical OIL) 1,000 Branch mg capsule loratadine 0 Yes Take by [facility] ers (CLARITIN 1-13 mouth ity of LIQUI-GEL) 23:49: daily. [place] 10 mg 34 Medical capsule Branch ondansetron 0 Yes 4mg Take 4 mg U nivers 4 mg tablet 1-13 by mouth ity of 23:49: every 8 [place] [address] (eight) Medical hours as Branch needed. pantoprazol 2022-0 Yes 40mg Take 40 mg Univers e 40 mg EC 1-13 by mouth ity o f tablet 23:49: daily. [address] MULTIVITAMI Yes 1{tbl} Take 1 Tab Univers N ORAL 1-13 by mouth ity of 23:49: daily. [address] omega-3 Yes 1g Take 1 g Univer s fatty 1-13 by mouth ity of acids-vitam 23:49: daily. [place] in E (FISH 34 Medical OIL) 1,000 Branch mg capsule loratadine 0 Yes Take by [facility] ers (CLARITIN 1-13 mouth ity of LIQUI-GEL) 23:49: daily. [place] 10 mg 34 Medical capsule Branch ondansetron 2022-0 Yes 4mg Take 4 mg U nivers 4 mg tablet 1-13 by mouth ity of 23:49: every 8 [place] [address] (eight) Medical hours as Branch needed. pantoprazol 2022-0 Yes 40mg Take 40 mg Univers e 40 mg EC 1-13 by mouth ity o f tablet 23:49: daily. [address] MULTIVITAMI 2023-0 Yes 1{tbl} Take 1 Tab Univers N ORAL 1-13 by mouth ity of 23:49: daily. [address] Branch omega-3 2022-0 Yes 1g Take 1 g Univer s fatty -13 by mouth ity of acids-vitam 23:49: daily. [place] in E (FISH 34 Medical OIL) 1,000 Branch mg capsule loratadine 0 Yes Take by Univ ers (CLARITIN - mouth ity of LIQUI-GEL) 23:49: daily. [place] 10 mg 34 Medical capsule Branch ondansetron 0 Yes 4mg Take 4 mg U nivers 4 mg tablet 13 by mouth ity of 23:49: every 8 [place] 34 (eight) Medical hours as Branch needed. pantoprazol 0 Yes 40mg Take 40 mg Univers e 40 mg EC 08-01 by mouth ity o f tablet 23:49: daily. [address] Branch benzonatate 0 Yes 100mg 100 [...] Shortness of Breath sulfur 3-0 2023- No [id number] 5mL 5 mL, Unive rs hexafluorid 08-01- Intravenou i ty of e microsphr 17:00: 17:00 s, ONCE, 1 [place] (LUMASON) 00 :00 dose, On Medica l injection 5 Fri Branch mL 08/01/22 at 1100, Routine
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 medication : TCKYLEE pantoprazol [...] Javier as mg 54 Starting Medical on [facility] Branch 07/31/22 at 2352, Until Discontinu ed, Routine, Seizures, Agitation, Anxiety, ETOH / Cocaine Withdrawl foLIC acid 2022-0 Yes 1mg 1 mg, Univer s (FOLATE) 13 Oral, ity of tablet 1 mg 05:45: DAILY, [place] 00 First dose Medical on [facility] 07/31/22 at 2345, Until Discontinu ed, Routine thiamine 2022-0 Yes 100mg 100 mg, Unive rs (VITAMIN 13 Oral, ity of B1) tablet 05:45: DAILY, [place] 100 mg 00 First dose Medical on [facility] 07/31/22 at 2345, Until Discontinu ed, Routine LORazepam 2022-0 2022- No .5mg 0.5 mg, Univ ers (ATIVAN) 08-01 Slow IV ity of injection 05:30: 05:29 Push, [place] 0.5 mg 00 :00 ONCE, 1 Medical dose, On Branch [facility] 07/31/22 at 2330, MICHAEL atorvastati 0 Yes 40mg 40 mg, Univ ers n (LIPITOR) 13 Oral, QHS, it y of tablet 40 03:00: First dose [place] mg 00 on [facility] 07/31/22 at Branch 2100, Until Discontinu ed, Routine diphenhydrA 2022-0 Yes 25mg 25 mg, Univ ers MINE 13 Oral, ity of (BENADRYL) 00:32: Q6HPRN, [place] tablet 25 02 Starting Medica l mg on [facility] 07/31/22 at 1832, Until Discontinu ed, Routine, Itching enoxaparin 2022-0 Yes 40mg 40 mg, Unive rs (LOVENOX) 07-31 Subcutaneo ity of injection 23:00: us, DAILY, [place] 40 mg 00 First dose Medical on [facility] 07/31/22 at 1700, Until Discontinu [...] :34 Starting Medi kwame tablet 1 on [facility] Branch tablet 07/31/22 at 1601, Until [...] ity of succ 19:30: 18:54 Push, ONCE [place] (SOLU-MEDRO 00 :00 NOW, 1 Medica l L) dose, On Branch injection [place] 125 mg 07/31/22 at 1330, MICHAEL ipratropium 2022- No 3mL 3 mL, [facility] ers -albuteroL 07-31 Inhalation it y of (DUONEB) 19:30: 18:48 , ONCE, 1 [place] 0.5 mg-3 00 :00 dose, On Medical mg(2.5 mg [place] Branch base)/3 mL 07/31/22 at nebulizer 1330, MICHAEL solution 3 mL pantoprazol Yes 40mg Take 40 mg Univers e 40 mg EC 12 by mouth ity o f tablet 17:15: daily. [place] 40 Medical Branch MULTIVITAMI 0 Yes 1{tbl} Take 1 Tab Univers N ORAL 12 by mouth ity of 15:50: daily. [place] 57 Medical Branch loratadine Yes Take by [facility] ers (CLARITIN 12 mouth ity of LIQUI-GEL) 15:50: daily. [place] 10 mg 57 Medical capsule Branch ondansetron Yes 4mg Take 4 mg U nivers 4 mg tablet 12 by mouth ity of 15:50: every 8 [place] 57 (eight) Medical hours as Branch needed. omega-3 Yes 1g Take 1 g [facility] s fatty 12 by mouth ity of acids-vitam 15:21: [facility]. [facility] (FISH 27 Medical OIL) 1,000 Branch mg capsule TAKE ONE No (1) 1-09 TABLET(S) 00:00: BY MOUTH 00 THREE TIMES A DAY NEEDED. Methylpredn 2021-07- No [id number] 4mg Take 1 Univers isolone 4 0-22 10-24 tablet ity of mg tablet 00:00: 04:59 through [place] 00 :00 enteral Medical tube in Branch the morning for 1 dose. Methylpredn 2021-07- No [id number] 4mg Take 1 Univers isolone 4 0-21 10-23 tablet ity of mg tablet 00:00: 04:59 through [place] 00 :00 enteral Medical tube every Branch 12 (twelve) hours for 2 doses. MULTIVITAMI 2021-07 Yes 1{tbl} Take 1 Tab Univers N ORAL 0-20 by mouth ity of 14:44: daily. [place] 48 Medical Branch omega-3 2021-07 Yes 1g Take 1 g Univer s fatty 0-20 by mouth ity of acids-vitam 14:44: daily. [place] in E (FISH 48 Medical OIL) 1,000 Branch mg capsule loratadine 2021-07 Yes Take by [facility] ers (CLARITIN 0-20 mouth ity of LIQUI-GEL) 14:44: daily. [place] 10 mg 48 Medical capsule Branch ondansetron 2021-07 Yes 4mg Take 4 mg U nivers (ZOFRAN) 4 0-20 by mouth ity o f mg tablet 14:44: every 8 [place] 48 (eight) Medical hours as Branch needed. pantoprazol 2021-07 Yes 40mg Take 40 mg Univers e 0-20 by mouth ity of (PROTONIX) 14:44: daily. [place] 40 mg EC 48 Medical tablet Branch DULoxetine 2021-07 Yes 30mg 30 mg, Unive rs (CYMBALTA) 0-20 Oral, ity of capsule 30 14:00: DAILY, [place] mg 00 First dose Medical on [facility] Branch 05/08/22 at 0900, Until Discontinu ed, Routine divalproex 2021-07 Yes 1000mg 1,000 mg, Univers (DEPAKOTE) 0-20 Oral, BID, ity of EC tablet 13:00: First dose [place] 1,000 mg 00 (after Medical last Branch modificati on) on [facility] 05/08/22 at 0800, Until Discontinu ed, Routine Methylpredn 2021-07 No 4mg 4 mg, Univ ers isolone 0-20 10-21 Oral, Q8H ity of (MEDROL) 08:50: 08:59 TAPER, 3 [place] tablet 4 mg 10 :00 doses, Medica l First dose Branch on [facility] 05/08/22 at 0400, Last dose on [facility] 05/08/22 at 2000, Routine acetaminoph 2021-07 [...] Discontinu ed, Routine, Anxiety cyclobenzap 2021-07 Yes [id number] 5mg Take 1 Univers rine 5 mg 0-20 tablet by ity o f tablet 00:00: mouth in [place] [address] the [facility] morning Branch and 1 tablet at noon and 1 tablet in the evening. cyclobenzap 2021-07 Yes [id number] 5mg Take 1 Univers rine 5 mg 0-20 tablet by ity o f tablet 00:00: mouth in [place] [address] the [facility] morning Branch and 1 tablet at noon and 1 tablet in the evening. cyclobenzap 2021-07 Yes [id number] 5mg Take 1 Univers rine 5 mg 0-20 tablet by ity o f tablet 00:00: mouth in [address] morning Branch and 1 tablet at noon and 1 tablet in the evening. cyclobenzap 2021-07 Yes [id number] 5mg Take 1 Univers rine 5 mg 0-20 tablet by ity o f tablet 00:00: mouth in [address] morning Branch and 1 tablet at noon and 1 tablet in the evening. cyclobenzap 2021-07 Yes [id number] 5mg Take 1 Univers rine 5 mg 0-20 tablet by ity o f tablet 00:00: mouth in [address] morning Branch and 1 tablet at noon and 1 tablet in the evening. cyclobenzap 2021-07 Yes [id number] 5mg Take 1 Univers rine 5 mg 0-20 tablet by ity o f tablet 00:00: mouth in [place] 00 the Medical morning Branch and 1 tablet at noon and 1 tablet in the evening. cyclobenzap 2021-07 Yes [id number] 5mg Take 1 Univers rine 5 mg 0-20 tablet by ity o f tablet 00:00: mouth in [place] 00 the Medical morning Branch and 1 tablet at noon and 1 tablet in the evening. DULoxetine 2021-07- No [id number] 60mg Take 2 Univers (CYMBALTA) 0-20 11-20 capsules ity of 30 mg 00:00: 05:59 by mouth [place] capsule 00 :00 in the Medical morning Branch for 30 days. divalproex 2021-07- No [id number] 750mg Take 3 Univers (DEPAKOTE) 0-20 11-20 tablets by it y of 250 mg EC 00:00: 05:59 mouth [place] tablet 00 :00 every 8 Medical (eight) Branch hours for 30 days. LORazepam 1 2021-07- No [id number] 1mg Take 1 Univers mg tablet 0-20 [...] Indication s: acute pain Methylpredn 2021-07- No [id number] 4mg Take 1 Univers isolone 4 0-20 10-22 tablet by ity of mg tablet 00:00: 04:59 mouth [place] 00 :00 every 8 Medical (eight) Branch hours for 3 doses. divalproex 2021-07- No 750mg 750 mg, Un lois (DEPAKOTE) 0-19 10-20 Oral, BID, it y of EC tablet 01:00: 09:40 [place] dose [place] 750 mg 00 :23 on [facility] 05/06/22 Branch at 1999, Until Discontinu [...] [place] tablet 500 00 :42 on [facility] 05/05/22 Branch at 2115, Until Discontinu ed, Routine LORazepam 2021-07 No 2mg 2 mg, Univer s (ATIVAN) 05-06 Oral, ity of tablet 2 mg 01:30: 01:03 ONCE, 1 [place] 00 :00 dose, On [facility] 05/05/22 at 2030, Routine levETIRAcet 2021-07 No 1000mg 1,000 mg, Univers am (KEPPRA) 05-06 Oral, BID, i ty of tablet 01:00: 04:48 First dose [place] 1,000 mg 00 :06 on [facility] 05/05/22 Branch at 2000, Until Discontinu ed, Routine enoxaparin 2021-07 Yes 40mg 40 mg, Unive rs (LOVENOX) 018 Subcutaneo ity of injection 00:15: us, Q24H, [place] as 40 mg 00 First dose Medical on [facility] 05/05/22 at 1915, Until Discontinu ed, Routine levETIRAcet 2021-07 No 1000mg 1,000 mg, Univers am (KEPPRA) 005-05 IV ity of in NACL 19:45: 20:05 Piggyback, [place] as (ISO-OS) 00 :00 ONCE, 1 Medical 1,000 dose, On Branch mg/100 mL [facility] RTU 05/05/22 at 1445, Administer over 15 Minutes, 100 mL clonazePAM 2021-07 Yes .5mg 0.5 mg, Univ ers (KLONOPIN) 0-17 Oral, BID, ity of tablet 0.5 19:30: First dose [place] mg 00 on [facility] 05/05/22 Branch at 1430, Until Discontinu ed, Routine ibuprofen 2021-07 Yes 600mg 600 mg, Univ ers (IBU) 0-17 Oral, TID ity of tablet 600 19:30: MEALS, [place] mg 00 First dose Medical on [facility] 05/05/22 at 1430, Until Discontinu ed, Routine gabapentin 2021-07 Yes 300mg 300 mg, Uni vers (NEURONTIN) 0-17 Oral, TID, it y of capsule 300 19:30: First dose [place] mg 00 on [facility] 05/05/22 Branch at 1430, Until Discontinu ed, Routine cyclobenzap 2021-07 Yes 5mg 5 mg, Unive rs rine 0-17 Oral, TID, ity of (FLEXERIL) 19:30: First dose [place] tablet 5 mg 00 on [facility] 05/05/22 Branch at 1430, Until Discontinu ed, Routine acetaminoph 2021-07 Yes 1000mg 1,000 mg, Univers en 0-17 Oral, Q8H, ity of (TYLENOL) 19:30: First dose [place] tablet 00 on [facility] 1,000 mg 05/05/22 Branch at 1430, Until Discontinu ed, Routine pantoprazol 2021-07 Yes 40mg 40 mg, Univ ers e 0-17 Oral, ity of (PROTONIX) 14:00: DAILY, [place] EC tablet 00 First dose Medi kwame 40 mg on [facility] 05/05/22 at 0900, Until Discontinu ed, Routine docusate 2021-07 Yes 100mg 100 mg, Unive rs (COLACE) 0-17 Oral, ity of capsule 100 14:00: DAILY, [place] mg 00 First dose Medical on [facility] 05/05/22 at 0900, Until Discontinu ed, Routine HYDROcodone 2021-07- No 1{tbl} 1 tablet, Univers -acetaminop 0-17 10-17 Oral, ity of hen (NORCO) 10:32: 19:18 Q6HPRN, [place] 10-325 mg 02 :52 Starting Medica l tablet 1 on [facility] tablet 05/05/22 at 0532, Until Thu05/05/22 at 1418, Routine, Pain (scale 7-10) ondansetron 2021-07 Yes 4mg 4 mg, Slow Univers (ZOFRAN 0-17 IV Push, ity of (PF)) 06:49: Q6HPRN, [place] injection 4 57 Starting Medi kwame mg on [facility] Branch 05/05/22 at 0149, Until Discontinu ed, Routine, Nausea and Vomiting (N/V) HYDROcodone 2021-07- No 1{tbl} 1 tablet, Univers -acetaminop 0-17 10-17 Oral, ity of hen (NORCO 06:49: 10:32 Q6HPRN, [place] 5) 5-325 mg 41 :14 Starting Medi kwame tablet 1 on [facility] tablet 05/05/22 at 0149, Until Thu05/05/22 at 0532, Routine, Pain (scale 7-10) acetaminoph 2021-07- No 325mg 325 mg, U nivers en 0-17 10- Oral, ity of (TYLENOL) 06:49: 19:18 Q4HPRN, [place] tablet 325 39 :52 Starting Medic al mg on [facility] Branch 05/05/22 at 0149, Until Thu05/05/22 at 1418, Routine, Pain (scale 4-6) ondansetron 2021-07- No 4mg 4 mg, Univ ers (ZOFRAN) 0-17 10-17 Oral, ity of tablet 4 mg 04:00: 03:26 ONCE, 1 [place] 00 :00 dose, On [facility] 05/04/22 at 2300, Routine morpHINE (2 2021-07- No 2mg 2 mg, Slow Univers mg/mL) 0-17 10-17 IV Push, ity of injection 2 04:00: 03:26 ONCE, 1 [place] mg 00 :00 dose, On [facility] 05/04/22 at 2300, Routine aspirin 81 0 Yes [id number] 81mg Take 1 U nivers mg chewable 9-28 tablet by ity of tablet 00:00: mouth in [place] 00 the Medical morning. Branch aspirin 81 2021-0 Yes [id number] 81mg Take 1 U nivers mg chewable 9-28 tablet by ity of tablet 00:00: mouth in [place] 00 the Medical morning. Branch aspirin 81 0 Yes [id number] 81mg Take 1 U nivers mg chewable 9-28 tablet by ity of tablet 00:00: mouth in [place] 00 the Medical morning. Branch aspirin 81 0 Yes [id number] 81mg Take 1 U nivers mg chewable 9-28 tablet by ity of tablet 00:00: mouth in [place] 00 the Medical morning. Branch aspirin 81 0 Yes [id number] 81mg Take 1 U nivers mg chewable 9-28 tablet by ity of tablet 00:00: mouth in [place] 00 the Medical morning. [place] aspirin 81 0 Yes [id number] 81mg Take 1 U nivers mg chewable 9-28 tablet by ity of tablet 00:00: mouth in [place] 00 the Medical morning. Branch aspirin 81 0 Yes [id number] 81mg Take 1 U nivers mg chewable 9-28 tablet by ity of tablet 00:00: mouth in [place] 00 the Medical morning. [place] aspirin 81 0 Yes [id number] 81mg Take 1 U nivers mg chewable 9-28 tablet by ity of tablet 00:00: mouth in [place] 00 the Medical morning. [place] MULTIVITAMI Yes 1{tbl} Take 1 Tab Univers N ORAL 9-27 by mouth ity of 17:39: daily. [place] 14 [facility] Branch omega-3 Yes 1g Take 1 g Univer s fatty 9- by mouth ity of acids-vitam 17:39: daily. [facility] (FISH 14 Medical OIL) 1,000 Branch mg capsule loratadine Yes Take by Univ ers (CLARITIN 9- mouth ity of LIQUI-GEL) 17:39: daily. [place] 10 14 Medical capsule Branch ondansetron Yes [...] (after Medical last Branch modificati on) on [facility] 04/14/22 at 2145, Until Discontinu ed, Routine ketorolac 2021- No 15mg 15 mg, Unive rs (TORADOL) 04-15 Slow IV ity of injection 02:13: 02:22 Push, [place] 15 mg 00 :00 ONCE, 1 Medical dose, On Branch 04/14/22 at 2115, Routine levETIRAcet Yes [id number] 1000mg Take 1 Univers am 1,000 mg 9-27 tablet by ity of tablet 00:00: mouth in [place] 00 the Medical morning Branch and 1 tablet in the evening. atorvastati Yes [id number] 40mg Take 1 Univers n 40 mg 9-27 tablet by ity of tablet 00:00: mouth at [place] 00 bedtime. Medical Branch atorvastati Yes [id number] 40mg Take 1 Univers n 40 mg 9-27 tablet by ity of tablet 00:00: mouth at [place] 00 bedtime. Medical Branch atorvastati Yes [id number] 40mg Take 1 Univers n 40 mg 9-27 tablet by ity of tablet 00:00: mouth at [place] 00 bedtime. Medical Branch atorvastati Yes [id number] 40mg Take 1 Univers n 40 mg 9-27 tablet by ity of tablet 00:00: mouth at [place] 00 bedtime. Medical Branch atorvastati Yes [id number] 40mg Take 1 Univers n 40 mg 9-27 tablet by ity of tablet 00:00: mouth at [place] 00 bedtime. Medical Branch atorvastati Yes [id number] 40mg Take 1 Univers n 40 mg 9-27 tablet by ity of tablet 00:00: mouth at [place] [address] bedtime. Medical Branch atorvastati Yes [id number] 40mg Take 1 Univers n 40 mg 9-27 tablet by ity of tablet 00:00: mouth at [place] [address] bedtime. Medical Branch atorvastati Yes [id number] 40mg Take 1 Univers n 40 mg 9-27 tablet by ity of tablet 00:00: mouth at [place] [address] bedtime. Medical Branch levETIRAcet 2021- No [id number] 1000mg Take 1 Univers am 1,000 mg 9-27 10-20 tablet by it y of tablet 00:00: 00:00 mouth in [place] 00 :00 the Medical morning Branch and 1 tablet in the evening. lidocaine 5 2021- No [id number] 1{patch Apply 1 Univers % (700 9-27 [...] 12 Medical patch 1 Hours, Branch Patch [id number], Starting on Thu04/14/22 at 1645, Until Discontinu [...] 7-10), Pain (scale 4-6) sulfur 2021-2021- No [id number] 5mL 5 mL, Univ ers hexafluorid 04-14 Intravenou i ty of e microsphr 16:45: 16:45 s, ONCE, 1 [place] (LUMASON) 00 :00 dose, On Medica l injection 5 Mon Branch mL 04/14/22 at 1145, Routine
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 medication : [employer] clopidogreL 0 Yes 75mg 75 mg, Univ ers (PLAVIX) 75 04-14 Oral, ity of mg tablet 14:00: DAILY, [place] 75 mg 00 First dose Medical on [facility] 04/14/22 at 0900, Until Discontinu ed, Routine pantoprazol Yes 40mg 40 mg, Univ ers e 04-14 Oral, ity of (PROTONIX) 14:00: DAILY, [place] EC tablet 00 First dose Medi kwame 40 mg on [facility] 04/14/22 at 0900, Until Discontinu ed, Routine [...] [place] :[place] dose, On Medical [facility] 04/13/22 at 2030, Routine methocarbam [...] Q12H, Med ical First dose Branch on [place] 04/13/22 at 2000, Until Discontinu ed, Routine acetaminoph 2021- No 650mg 650 mg, U nivers en 04-14 Oral, ity of (TYLENOL) 00:23: 21:29 Q6HPRN, [place] tablet 650 25 :42 Starting Medic al mg on [facility] 04/13/22 at 1923, Until [facility] 04/14/22 at 1629, Routine, Pain (scale 1-3), Pain (scale 4-6), Temp > 38.5 C, Temp > 37.5 C lidocaine 2021- No 1{patch 1 Patch, Univers (LIDODERM) 04-14 } Topical, ity of 5 % (700 00:22: 13:51 Admin[place] mg/patch) 00 :00 over 12 Medical patch 1 Hours, Branch Patch ONCE, 1 dose, On [place] 04/13/22 at 1930, Routine FENTanyl PF 2021- No 50ug 50 mcg, Un lois (SUBLIMAZE 04-13 Slow IV ity o f (PF)) 20:30: 19:22 Push, [place] injection 00 :00 ONCE, 1 Medical 50 mcg dose, On [facility] 04/13/22 at 1530, Routine aspirin 2021- No 650mg 650 mg, Unive rs chewable 04-13 Oral, ity of tablet 650 20:15: 20:15 ONCE, 1 [place] mg 00 :00 dose, On Medical [facility] 04/13/22 at 1515, Routine clopidogreL 2021- No 300mg 300 mg, U nivers (PLAVIX) 04-13 Oral, ity of 300 mg 20:00: 19:15 ONCE, 1 [place] tablet 300 00 :00 dose, On Medic al mg [facility] 04/13/22 at 1500, Routine ondansetron 2021- No 4mg 4 mg, Slow Univers (ZOFRAN 04-13 IV Push, ity of (PF)) 19:30: 19:22 ONCE, 1 [place] injection 4 00 :00 dose, On Medi kwame mg [facility] 04/13/22 at 1430, MICHAEL iopamidol 2021- No [id number] 100mL 100 mL, Univers (ISOVUE 04-13 Intravenou ity o f 370-500 mL) 18:31: 18:32 s, ONCE, 1 [place] injection 00 :00 dose, On Medica l 100 mL [facility] 04/13/22 at 1345, Routine [...] Sat Medica l mg(2.5 mg 03/16/21 at [facility] base)/3 mL 2100, MICHAEL nebulizer [...] IV ity of succ 01:57: 02:11 [place], [place] (SOLU-MEDRO 00 :00 ONCE, 1 Medic al [...] IV ity of succ 01:57: 02:11 [place], [place] (SOLU-MEDRO 00 :00 ONCE, 1 Medic al [...] nebulizer solution 3 mL levoFLOXaci 2020- No [id number] 500mg Take 1 Univers n 500 mg 03-17 tablet by ity o f tablet 00:00: 04:59 mouth [place] 00 :00 daily for Medical 6 days. Branch levoFLOXaci 2020- No [id number] 500mg Take 1 Univers n 500 mg 03-17 tablet by ity o f tablet 00:00: 04:59 mouth [place] 00 :00 daily for Medical 6 days. Branch levoFLOXaci 2020-0 2020- No [id number] 500mg Take 1 Univers n 500 mg 03-17 tablet by ity o f tablet 00:00: 04:59 mouth [place] 00 :00 daily for Medical 6 days. Branch levoFLOXaci 2020- No [id number] 500mg Take 1 Univers n 500 mg 03-17 tablet by ity o f tablet 00:00: 04:59 mouth [place] 00 :00 daily for Medical 6 days. Branch predniSONE 2020- No [id number] 30mg Take 3 Univers 10 mg 03-17 tablets by ity of tablet 00:00: 04:59 mouth [place] 00 :00 daily for Medical 4 days. Branch predniSONE No [id number] 30mg Take 3 Univers 10 mg 03-17 tablets by ity of tablet 00:00: 04:59 mouth [place] 00 :00 daily for Medical 4 days. Branch predniSONE 2020- No [id number] 30mg Take 3 Univers 10 mg 03-17 tablets by ity of tablet 00:00: 04:59 mouth [place] 00 :00 daily for Medical 4 days. Branch predniSONE No [id number] 30mg Take 3 Univers 10 mg 03-17 tablets by ity of tablet 00:00: 04:59 mouth [place] 00 :00 daily for Medical 4 days. Branch albuterol 2020- No [id number] 4{puff} 4 Puff, Univers (VENTOLIN) 03-15 Inhalation it y of inhaler 4 01:45: 00:44 , ONCE, 1 [place] Puff 00 :00 dose, [facility] Medical 03/14/21 at [place] 2044, Routine dexamethaso No [id number] 10mg 10 mg, Univers ne 03-15- Intramuscu ity of (DECADRON) 01:45: 00:45 lar, ONCE, [place] injection 00 :00 1 dose, Medical 10 mg [facility] 03/14/21 at 2044, Routine albuterol Yes [id number] 2.5mg Inhale 3 Univers 2.5 mg /3 - mL every 4 ity of mL (0.083 00:00: (four) [place] %) 00 hours as Medical nebulizer needed for Bran ch solution Wheezing or Shortness of Breath. albuterol 2020-0 Yes [id number] 2.5mg Inhale 3 Univers 2.5 mg /3 8-27 mL every 4 ity of mL (0.083 00:00: (four) [place] %) 00 hours as Medical nebulizer needed for Bran ch solution Wheezing or Shortness of Breath. albuterol 2020-0 Yes [id number] 2.5mg Inhale 3 Univers 2.5 mg /3 8-27 mL every 4 ity of mL (0.083 00:00: (four) [place] %) 00 hours as Medical nebulizer needed for Bran ch solution Wheezing or Shortness of Breath. albuterol 2020-0 Yes [id number] 2.5mg Inhale 3 Univers 2.5 mg /3 8-27 mL every 4 ity of mL (0.083 00:00: (four) [place] %) 00 hours as Medical nebulizer needed for Bran ch solution Wheezing or Shortness of Breath. albuterol 2020-0 Yes [id number] 2.5mg Inhale 3 Univers 2.5 mg /3 8-27 mL every 4 ity of mL (0.083 00:00: (four) [place] %) 00 hours as Medical nebulizer needed for Bran ch solution Wheezing or Shortness of Breath. albuterol 2020-0 Yes [id number] 2.5mg Inhale 3 Univers 2.5 mg /3 8-27 mL every 4 ity of mL (0.083 00:00: (four) [place] %) 00 hours as Medical nebulizer needed for Bran ch solution Wheezing or Shortness of Breath. albuterol 2020-0 Yes [id number] 2.5mg Inhale 3 Univers 2.5 mg /3 8-27 mL every 4 ity of mL (0.083 00:00: (four) [place] %) 00 hours as Medical nebulizer needed for Bran ch solution Wheezing or Shortness of Breath. albuterol 2020-0 Yes [id number] 2.5mg Inhale 3 Univers 2.5 mg /3 8-27 mL every 4 ity of mL (0.083 00:00: (four) [place] %) 00 hours as Medical nebulizer needed for Bran ch solution Wheezing or Shortness of Breath. albuterol 2020-0 Yes [id number] 2.5mg Inhale 3 Univers 2.5 mg /3 8-27 mL every 4 ity of mL (0.083 00:00: ([facility]) [place] %) 00 hours as Medical nebulizer needed for Bran ch solution Wheezing or Shortness of Breath. albuterol 2020-0 Yes [id number] 2.5mg Inhale 3 Univers 2.5 mg /3 8-27 mL every 4 ity of mL (0.083 00:00: ([facility]) [place] %) 00 hours as Medical nebulizer needed for Bran ch solution Wheezing or Shortness of Breath. albuterol 2020-0 Yes [id number] 2.5mg Inhale 3 Univers 2.5 mg /3 8-27 mL every 4 ity of mL (0.083 00:00: ([facility]) [place] %) 00 hours as Medical nebulizer needed for Bran ch solution Wheezing or Shortness of Breath. albuterol 2020-0 Yes [id number] 2.5mg Inhale 3 Univers 2.5 mg /3 8-27 mL every 4 ity of mL (0.083 00:00: ([facility]) [place] %) 00 hours as Medical nebulizer needed for Bran ch solution Wheezing or Shortness of Breath. albuterol 2020-0 Yes [id number] 2.5mg Inhale 3 Univers 2.5 mg /3 8-27 mL every 4 ity of mL (0.083 00:00: ([facility]) [place] %) 00 hours as Medical nebulizer needed for Bran ch solution Wheezing or Shortness of Breath. albuterol 2020-0 Yes [id number] 2.5mg Inhale 3 Univers 2.5 mg /3 8-27 mL every 4 ity of mL (0.083 00:00: (four) [place] %) 00 hours as Medical nebulizer needed for Bran ch solution Wheezing or Shortness of Breath. albuterol 2020-0 Yes [id number] 2.5mg Inhale 3 Univers 2.5 mg /3 8-27 mL every 4 ity of mL (0.083 00:00: (four) [place] %) 00 hours as Medical nebulizer needed for Bran ch solution Wheezing or Shortness of Breath. albuterol 2020-0 Yes [id number] 2.5mg Inhale 3 Univers 2.5 mg /3 8-27 mL every 4 ity of mL (0.083 00:00: (four) [place] %) 00 hours as Medical nebulizer needed for Bran ch solution Wheezing or Shortness of Breath. albuterol 0 Yes [id number] 2.5mg Inhale 3 Univers 2.5 mg /3 8-27 mL every 4 ity of mL (0.083 00:00: (four) [place] %) 00 hours as Medical nebulizer needed for Bran ch solution Wheezing or Shortness of Breath. albuterol 0 Yes [id number] 2.5mg Inhale 3 Univers 2.5 mg /3 [...] (KEPPRA 8-03 mouth. ity of ORAL) 19:45: [address] levetiracet Yes Take by Uni vers am (KEPPRA 8-03 mouth. ity of ORAL) 19:45: [address] levetiracet 0 Yes Take by Uni vers am (KEPPRA 8-03 mouth. ity of ORAL) 19:45: [address] levetiracet 0 Yes Take by Uni vers am (KEPPRA 8-03 mouth. ity of ORAL) 19:45: [address] levetiracet 0 Yes Take by Uni vers am (KEPPRA 8-03 mouth. ity of ORAL) 19:45: [address] levetiracet 0 Yes Take by Uni [...] at Branch 1200, MICHAEL iopamidol 2020- No [id number] 100mL 100 mL, Univers (ISOVUE 02-19 Intravenou ity o f 370-500 mL) 16:35: 16:45 s, ONCE, 1 [place] injection 00 :00 dose, Tue Medic al 100 mL 02/19/21 at Branch 1145, Routine levetiracet 2020-0 Yes Take by Uni vers am (KEPPRA 8-03 mouth. ity of ORAL) 14:45: [address] levetiracet 2020-0 Yes Take by Uni vers am (KEPPRA 8-03 mouth. ity of ORAL) 14:45: [address] levetiracet 2020-0 Yes Take by Uni vers am (KEPPRA 8-03 mouth. ity of ORAL) 14:45: [address] levetiracet 2020-0 Yes Take by Uni vers am (KEPPRA 8-03 mouth. ity of ORAL) 14:45: [address] levetiracet 2020-0 Yes Take by Uni vers am (KEPPRA 8-03 mouth. ity of ORAL) 14:45: [address] proMETHazin 2020-0 Yes [id number] 25mg Take 1 Univers e 25 mg 8-03 tablet by ity of tablet 00:00: mouth [place] 00 every 6 Medical (six) Branch hours as needed for Nausea and Vomiting (N/V). dicyclomine 2020-0 Yes [id number] 20mg Take 1 Univers 20 mg 8-03 tablet by ity of tablet 00:00: mouth 4 [place] 00 (four) Medical times Branch daily as needed for Abdominal pain. proMETHazin 2020-0 Yes [id number] 25mg Take 1 Univers e 25 mg 8-03 tablet by ity of tablet 00:00: mouth [place] 00 every 6 Medical (six) Branch hours as needed for Nausea and Vomiting (N/V). dicyclomine 2020-0 Yes [id number] 20mg Take 1 Univers 20 mg 8-03 tablet by ity of tablet 00:00: mouth 4 [place] 00 (four) Medical times Branch daily as needed for Abdominal pain. proMETHazin 202-0 Yes [id number] 25mg Take 1 Univers e 25 mg 8-03 tablet by ity of tablet 00:00: mouth [place] 00 every 6 Medical (six) Branch hours as needed for Nausea and Vomiting (N/V). dicyclomine 2021-0 Yes [id number] 20mg Take 1 Univers 20 mg 8-03 tablet by ity of tablet 00:00: mouth 4 [place] 00 (four) Medical times Branch daily as needed for Abdominal pain. proMETHazin 1-0 Yes [id number] 25mg Take 1 Univers e 25 mg 8-03 tablet by ity of tablet 00:00: mouth [place] 00 every 6 Medical (six) Branch hours as needed for Nausea and Vomiting (N/V). dicyclomine 2020-0 Yes [id number] 20mg Take 1 Univers 20 mg 8-03 tablet by ity of tablet 00:00: mouth 4 00 (four) Medical times Branch daily as needed for Abdominal pain. proMETHazin 2020-0 Yes [id number] 25mg Take 1 Univers e 25 mg 8-03 tablet by ity of tablet 00:00: mouth [place] 00 every 6 Medical (six) Branch hours as needed for Nausea and Vomiting (N/V). dicyclomine 2020-0 Yes [id number] 20mg Take 1 Univers 20 mg 8-03 tablet by ity of tablet 00:00: mouth (four) Medical times Branch daily as needed for Abdominal pain. proMETHazin 2020-0 Yes [id number] 25mg Take 1 Univers e 25 mg 8-03 tablet by ity of tablet 00:00: mouth [place] 00 every 6 Medical (six) Branch hours as needed for Nausea and Vomiting (N/V). dicyclomine 2020-0 Yes [id number] 20mg Take 1 Univers 20 mg 8-03 tablet by ity of tablet 00:00: mouth (four) Medical times Branch daily as needed for Abdominal pain. proMETHazin 2020-0 Yes [id number] 25mg Take 1 Univers e 25 mg 8-03 tablet by ity of tablet 00:00: mouth [place] 00 every 6 Medical (six) Branch hours as needed for Nausea and Vomiting (N/V). dicyclomine 202-0 Yes [id number] 20mg Take 1 Univers 20 mg 8-03 tablet by ity of tablet 00:00: mouth 00 (four) Medical times Branch daily as needed for Abdominal pain. proMETHazin 2020-0 Yes [id number] 25mg Take 1 Univers e 25 mg 8-03 tablet by ity of tablet 00:00: mouth [place] 00 every 6 Medical (six) Branch hours as needed for Nausea and Vomiting (N/V). dicyclomine 2021-0 Yes [id number] 20mg Take 1 Univers 20 mg 8-03 tablet by ity of tablet 00:00: mouth 4 (four) Medical times Branch daily as needed for Abdominal pain. proMETHazin 2020-0 Yes [id number] 25mg Take 1 Univers e 25 mg 8-03 tablet by ity of tablet 00:00: mouth [place] 00 every 6 Medical (six) Branch hours as needed for Nausea and Vomiting (N/V). dicyclomine 2020-0 Yes [id number] 20mg Take 1 Univers 20 mg 8-03 tablet by ity of tablet 00:00: mouth (four) Medical times Branch daily as needed for Abdominal pain. proMETHazin 2020-0 Yes [id number] 25mg Take 1 Univers e 25 mg 8-03 tablet by ity of tablet 00:00: mouth [place] 00 every 6 Medical (six) Branch hours as needed for Nausea and Vomiting (N/V). dicyclomine 2020-0 Yes [id number] 20mg Take 1 Univers 20 mg 8-03 tablet by ity of tablet 00:00: mouth (four) Medical times Branch daily as needed for Abdominal pain. proMETHazin 2020-0 Yes [id number] 25mg Take 1 Univers e 25 mg 8-03 tablet by ity of tablet 00:00: mouth [place] 00 every 6 Medical (six) Branch hours as needed for Nausea and Vomiting (N/V). dicyclomine 2020-0 Yes [id number] 20mg Take 1 Univers 20 mg 8-03 tablet by ity of tablet 00:00: mouth (four) Medical times Branch daily as needed for Abdominal pain. proMETHazin 2020-0 Yes [id number] 25mg Take 1 Univers e 25 mg 8-03 tablet by ity of tablet 00:00: mouth [place] 00 every 6 Medical (six) Branch hours as needed for Nausea and Vomiting (N/V). dicyclomine 2020-0 Yes [id number] 20mg Take 1 Univers 20 mg 8-03 tablet by ity of tablet 00:00: mouth 4 (four) Medical times Branch daily as needed for Abdominal pain. proMETHazin 2020-0 Yes [id number] 25mg Take 1 Univers e 25 mg 8-03 tablet by ity of tablet 00:00: mouth [place] 00 every 6 Medical (six) Branch hours as needed for Nausea and Vomiting (N/V). dicyclomine 2021-0 Yes [id number] 20mg Take 1 Univers 20 mg 8-03 tablet by ity of tablet 00:00: mouth (four) Medical times Branch daily as needed for Abdominal pain. proMETHazin 2020-0 Yes [id number] 25mg Take 1 Univers e 25 mg 8-03 tablet by ity of tablet 00:00: mouth 00 every 6 Medical (six) Branch hours as needed for Nausea and Vomiting (N/V). dicyclomine 2020-0 Yes [id number] 20mg Take 1 Univers 20 mg 8-03 tablet by ity of tablet 00:00: mouth (four) Medical times Branch daily as needed for Abdominal pain. proMETHazin 2020-0 Yes [id number] 25mg Take 1 Univers e 25 mg 8-03 tablet by ity of tablet 00:00: mouth 00 every 6 Medical (six) Branch hours as needed for Nausea and Vomiting (N/V). dicyclomine 2020-0 Yes [id number] 20mg Take 1 Univers 20 mg 8-03 tablet by ity of tablet 00:00: mouth (four) Medical times Branch daily as needed for Abdominal pain. proMETHazin 2020-0 Yes [id number] 25mg Take 1 Univers e 25 mg 8-03 tablet by ity of tablet 00:00: mouth 00 every 6 Medical (six) Branch hours as needed for Nausea and Vomiting (N/V). dicyclomine 2020-0 Yes [id number] 20mg Take 1 Univers 20 mg 8-03 tablet by ity of tablet 00:00: mouth (four) Medical times Branch daily as needed for Abdominal pain. proMETHazin 2020-0 Yes [id number] 25mg Take 1 Univers e 25 mg 8-03 tablet by ity of tablet 00:00: mouth [place] 00 every 6 Medical (six) Branch hours as needed for Nausea and Vomiting (N/V). dicyclomine 2021-0 Yes [id number] 20mg Take 1 Univers 20 mg 8-03 tablet by ity of tablet 00:00: mouth (four) Medical times Branch daily as needed for Abdominal pain. proMETHazin 2021-0 Yes [id number] 25mg Take 1 Univers e 25 mg 8-03 tablet by ity of tablet 00:00: mouth [place] 00 every 6 Medical (six) Branch hours as needed for Nausea and Vomiting (N/V). dicyclomine Yes [id number] 20mg Take 1 Univers 20 mg 8-03 tablet by ity of tablet 00:00: mouth 4 00 (four) Medical times Branch daily as needed for Abdominal pain. proMETHazin Yes [id number] 25mg Take 1 Univers e 25 mg 8-03 tablet by ity of tablet 00:00: mouth [place] 00 every 6 Medical (six) Branch hours as needed for Nausea and Vomiting (N/V). dicyclomine Yes [id number] 20mg Take 1 Univers 20 mg 8-03 [...] o f mg tablet 20:05: every 8 [place] (eight) Medical hours as Branch needed. pantoprazol Yes 40mg Take 40 mg Univers e 7-24 by mouth ity of (PROTONIX) 20:05: daily. [place] 40 mg EC Medical tablet Branch ondansetron Yes 4mg Take 4 mg U nivers (ZOFRAN) 4 7-24 by mouth ity o f mg tablet 20:05: every 8 [place] (eight) Medical hours as Branch needed. pantoprazol [...] o f mg tablet 20:05: every 8 [place] [address] (eight) Medical hours as Branch needed. pantoprazol [...] o f mg tablet 20:05: every 8 [place] [address] (eight) Medical hours as Branch needed. pantoprazol 2018-0 Yes 40mg Take 40 mg Univers e 7-24 by mouth ity of (PROTONIX) 20:05: daily. [place] 40 mg EC Medical tablet Branch ondansetron 2018-0 Yes 4mg Take 4 mg U nivers (ZOFRAN) 4 7-24 by mouth ity o f mg tablet 20:05: every 8 [place] [address] (eight) Medical hours as Branch needed. pantoprazol 2018-0 Yes 40mg Take 40 mg Univers e 7-24 by mouth ity of (PROTONIX) 20:05: daily. [place] 40 mg EC Medical tablet Branch ondansetron 2018-0 Yes 4mg Take 4 mg U nivers (ZOFRAN) 4 7-24 by mouth ity o f mg tablet 20:05: every 8 [place] [address] (eight) Medical hours as Branch needed. pantoprazol [...] 7-24 by mouth ity of 19:58: daily. [place] [address] Medical Branch loratadine Yes Take by Univ ers (CLARITIN 7-24 mouth ity of LIQUI-GEL) 19:58: daily. [place] 10 mg 14 Medical capsule Branch MULTIVITAMI Yes 1{tbl} Take 1 Tab Univers N ORAL 7-24 by mouth ity of 19:58: daily. [place] [address] Medical Branch loratadine Yes Take by Univ ers (CLARITIN 7-24 mouth ity of LIQUI-GEL) 19:58: daily. [place] 10 mg 14 Medical capsule Branch MULTIVITAMI Yes 1{tbl} Take 1 Tab Univers N ORAL 7-24 by mouth ity of 19:58: daily. [place] [address] Medical Branch loratadine Yes Take by Univ ers (CLARITIN 7-24 mouth ity of LIQUI-GEL) 19:58: daily. [place] 10 mg 14 Medical capsule Branch MULTIVITAMI Yes 1{tbl} Take 1 Tab Univers N ORAL 7-24 by mouth ity of 19:58: daily. [place] [address] Medical Branch loratadine 0 Yes Take by Univ ers (CLARITIN 7-24 mouth ity of LIQUI-GEL) 19:58: daily. [place] 10 mg 14 Medical capsule Branch MULTIVITAMI Yes 1{tbl} Take 1 Tab Univers N ORAL 7-24 by mouth ity of 19:58: daily. [place] [address] Medical Branch loratadine Yes Take by Univ ers (CLARITIN 7-24 mouth ity of LIQUI-GEL) 19:58: daily. [place] 10 mg 14 Medical capsule Branch MULTIVITAMI 2018-0 Yes 1{tbl} Take 1 Tab Univers N ORAL 7-24 by mouth ity of 19:58: daily. [place] 14 Medical Branch loratadine 2018-0 Yes Take by [facility] ers (CLARITIN 7-24 mouth ity of LIQUI-GEL) 19:58: daily. [place] 10 mg 14 Medical capsule Branch MULTIVITAMI 2018-0 Yes 1{tbl} Take 1 Tab Univers N ORAL 7-24 by mouth ity of 19:58: daily. [place] [address] Medical Branch loratadine 2018-0 Yes Take by [facility] ers (CLARITIN 7-24 mouth ity [...] 7-24 by mouth ity of 14:58: daily. [place] [address] Medical Branch loratadine Yes Take by Univ ers (CLARITIN 7-24 mouth ity of LIQUI-GEL) 14:58: daily. [place] 10 mg 14 Medical capsule Branch MULTIVITAMI Yes 1{tbl} Take 1 Tab Univers N ORAL 7-24 by mouth ity of 14:58: daily. [place] [address] Medical Branch loratadine Yes Take by Univ ers (CLARITIN 7-24 mouth ity of LIQUI-GEL) 14:58: daily. [place] 10 mg 14 Medical capsule Branch MULTIVITAMI Yes 1{tbl} Take 1 Tab Univers N ORAL 7-24 by mouth ity of 14:58: daily. [place] [address] Medical Branch loratadine Yes Take by Univ ers (CLARITIN 7-24 mouth ity of LIQUI-GEL) 14:58: daily. [place] 10 mg 14 Medical capsule Branch MULTIVITAMI Yes 1{tbl} Take 1 Tab Univers N ORAL 7-24 by mouth ity of 14:58: daily. [place] [address] Medical Branch loratadine Yes Take by Univ ers (CLARITIN 7-24 mouth ity of LIQUI-GEL) 14:58: daily. [place] 10 mg 14 Medical capsule Branch MULTIVITAMI Yes 1{tbl} Take 1 Tab Univers N ORAL 7-24 by mouth ity of 14:58: daily. [place] [address] Medical Branch loratadine Yes Take by Univ ers (CLARITIN 7-24 mouth ity of LIQUI-GEL) 14:58: daily. [place] 10 mg 14 Medical capsule Branch proMETHazin [...] Immunizations Ordered Filled Immunization Date Status Comments [facility] e Immunization Name Name SARS-COV-2 COVID-19 2022-02-19 [...] Unive rsity of PFIZER VACCINE 00:00:00 [place] [facility] Branch SARS-COV-2 COVID-19 2021-05-24 Completed Unive rsity of PFIZER VACCINE 00:00:00 [place] [facility] Branch SARS-COV-2 COVID-19 2021-05-24 Completed Unive rsity of PFIZER VACCINE 00:00:00 [place] [facility] Branch SARS-COV-2 COVID-19 2021-05-24 Completed Unive rsity of PFIZER VACCINE 00:00:00 [place] [facility] Branch SARS-COV-2 COVID-19 2021-05-24 Completed Unive rsity of PFIZER VACCINE 00:00:00 [place] [facility] Branch SARS-COV-2 COVID-19 2021-05-24 Completed Unive rsity of PFIZER VACCINE 00:00:00 [facility] Branch SARS-COV-2 COVID-19 2021-05-24 Completed Unive rsity of PFIZER VACCINE 00:00:00 [place] [facility] [facility] SARS-COV-2 COVID-19 2021-05-24 Completed Unive rsity of PFIZER VACCINE 00:00:00 [facility] SARS-COV-2 COVID-19 2021-05-03 Completed Unive rsity of PFIZER VACCINE 00:00:00 [facility] SARS-COV-2 COVID-19 2021-05-03 Completed Unive rsity of PFIZER VACCINE 00:00:00 [facility] SARS-COV-2 COVID-19 2021-05-03 Completed Unive rsity of PFIZER VACCINE 00:00:00 [facility] SARS-COV-2 COVID-19 2021-05-03 Completed Unive rsity of PFIZER VACCINE 00:00:00 [facility] SARS-COV-2 COVID-19 2021-05-03 Completed Unive rsity of PFIZER VACCINE 00:00:00 [facility] SARS-COV-2 COVID-19 2021-05-03 Completed Unive rsity of PFIZER VACCINE 00:00:00 [facility] SARS-COV-2 COVID-19 2021-05-03 Completed Unive rsity of PFIZER VACCINE 00:00:00 [facility] SARS-COV-2 COVID-19 2021-05-03 Completed Unive rsity of PFIZER VACCINE 00:00:00 [facility] SARS-COV-2 COVID-19 2021-05-03 Completed Unive rsity of PFIZER VACCINE 00:00:00 [facility] SARS-COV-2 COVID-19 2021-05-03 Completed Unive rsity of PFIZER VACCINE 00:00:00 [facility] SARS-COV-2 COVID-19 2021-05-03 Completed Unive rsity of PFIZER VACCINE 00:00:00 [facility] SARS-COV-2 COVID-19 2021-05-03 Completed Unive rsity of PFIZER VACCINE 00:00:00 [facility] Vital Signs Vital Name Observation Time Observation Value Comments Source Systolic blood 2022-12-11 20:00:00 142 mm[Hg] Univer sity of pressure [facility] Diastolic blood 2022-12-11 20:00:00 90 mm[Hg] Unive rsity of pressure [facility] Respiratory rate 2022-12-11 20:00:00 24 /min [facility] Heart rate 2022-12-11 18:00:00 101 /min [facility] Oxygen saturation in 2022-12-11 18:00:00 93 /min University of Arterial blood by [facility] kwame Pulse oximetry Branch BMI 2022-12-11 13:55:00 35.43 kg/m2 [facility] Body temperature 2022-12-11 13:55:00 37.22 Radha [facility] Body weight 2022-12-11 13:55:00 90.719 kg [facility] Systolic blood 2022-11-18 05:34:00 152 mm[Hg] [facility] Diastolic blood 2022-11-18 05:34:00 98 mm[Hg] Unive rsity of [facility] Heart rate 2022-11-18 05:34:00 88 /min [facility] Respiratory rate 2022-11-18 05:34:00 18 /min [facility] Oxygen saturation in 2022-11-18 05:34:00 97 /min University of Arterial blood by [facility] Pulse oximetry Branch Body temperature 2022-11-17 22:28:00 37.06 Radha [facility] Body height 2022-11-17 22:28:00 160 cm [facility] Body weight 2022-11-17 22:28:00 99.791 kg [facility] BMI 2022-11-17 22:28:00 38.97 kg/m2 [facility] Heart rate 2022-08-02 02:02:00 108 /min [facility] Respiratory rate 2022-08-02 02:02:00 28 /min [facility] Oxygen saturation in 2022-08-02 02:02:00 97 /min University of Arterial blood by [place] [employer] kwame Pulse oximetry Branch Body temperature 2022-08-02 01:00:00 36.44 Radha [facility] Systolic blood 2022-08-01 23:29:00 145 mm[Hg] Univer [facility]ity [facility] Diastolic blood 2022-08-01 23:29:00 103 mm[Hg] [facility]ive [facility] Body weight 2022-08-01 09:16:00 97.977 kg [facility] BMI 2022-08-01 09:16:00 38.26 kg/m2 [facility] Body height 2022-07-31 21:54:00 160 cm [facility] Systolic blood 2022-05-08 16:40:00 146 mm[Hg] Un[facility] Diastolic blood 2022-05-08 16:40:00 96 mm[Hg] Unive rsity [facility] Heart rate 2022-05-08 16:40:00 112 /min [facility] Body temperature 2022-05-08 16:40:00 36.78 Radha [facility] Respiratory rate 2022-05-08 16:40:00 18 /min [facility] Oxygen saturation in 2022-05-08 16:40:00 94 /min University of Arterial blood by [place] [employer] kwame Pulse oximetry Branch Body height 2022-05-05 23:44:00 160 cm [facility] Body weight 2022-05-05 23:37:00 81.647 kg [facility] BMI 2022-05-05 23:37:00 31.89 kg/m2 [facility] Systolic blood 2022-04-15 18:52:00 104 mm[Hg] Univer [facility] Diastolic blood 2022-04-15 18:52:00 82 mm[Hg] Unive rsity [facility] Heart rate 2022-04-15 18:52:00 114 /min [facility] Oxygen saturation in 2022-04-15 18:52:00 98 /min [facility] Arterial blood by [place] [employer] kwame Pulse oximetry Branch Body temperature 2022-04-15 16:14:00 36.28 Radha [facility] Respiratory rate 2022-04-15 16:14:00 17 /min [facility] Body height 2022-04-13 21:08:00 160 cm [facility] Body weight 2022-04-13 21:08:00 91.173 kg [facility] BMI 2022-04-13 21:08:00 35.61 kg/m2 [facility] Systolic blood 2021-11-23 21:30:00 132 mm[Hg] [facility] Diastolic blood 2021-11-23 21:30:00 76 mm[Hg] [facility]ive [facility] Heart rate 2021-11-23 21:30:00 95 /min [facility] Respiratory rate 2021-11-23 21:30:00 13 /min [facility] Oxygen saturation in 2021-11-23 21:30:00 97 /min [facility] Arterial blood by [place] [employer] kwame Pulse oximetry Branch Body temperature 2021-11-23 20:15:00 37.56 Radha [facility] Systolic blood 2021-03-17 03:00:00 117 mm[Hg] [facility] Diastolic blood 2021-03-17 03:00:00 76 mm[Hg] [facility] Heart rate 2021-03-17 03:00:00 104 /min [facility] Respiratory rate 2021-03-17 03:00:00 28 /min [facility] Oxygen saturation in 2021-03-17 03:00:00 96 /min [facility] Arterial blood by [place] [employer] kwame Pulse oximetry Branch Body temperature 2021-03-17 00:39:00 37.11 Radha [facility] Body height 2021-03-17 00:39:00 160 cm [facility] Body weight 2021-03-17 00:39:00 58.968 kg [facility] BMI 2021-03-17 00:39:00 23.03 kg/m2 [facility] Systolic blood 2021-03-15 00:14:00 149 mm[Hg] [facility] Diastolic blood 2021-03-15 00:14:00 78 mm[Hg] [facility]ive [facility] Heart rate 2021-03-15 00:14:00 100 /min [facility] Body temperature 2021-03-15 00:14:00 37.33 Radha [facility] Respiratory rate 2021-03-15 00:14:00 24 /min [facility] Body height 2021-03-15 00:14:00 160 cm [facility] Body weight 2021-03-15 00:14:00 58.968 kg [facility] BMI 2021-03-15 00:14:00 23.03 kg/m2 [facility] Oxygen saturation in 2021-03-15 00:14:00 98 /min [facility] Arterial blood by [facility] Pulse oximetry Branch Systolic blood 2021-02-19 18:00:00 131 mm[Hg] Univer sity of pressure [facility] Diastolic blood 2021-02-19 18:00:00 80 mm[Hg] Unive rsity of [facility] Heart rate 2021-02-19 18:00:00 83 /min [facility] Respiratory rate 2021-02-19 18:00:00 18 /min [facility] Oxygen saturation in 2021-02-19 18:00:00 100 /min [facility] of Arterial blood by [facility] Pulse oximetry Branch Body temperature 2021-02-19 15:47:00 37 Radha [facility] Body height 2021-02-19 15:47:00 160 cm [facility] [place] Body weight 2021-02-19 15:47:00 58.968 kg [facility] [place] BMI 2021-02-19 15:47:00 23.03 kg/m2 Universi [facility] Respiratory rate 2022-08-03 14:40:00 18 /min [facility] Systolic blood 2022-08-03 12:13:00 112 mm[Hg] [facility] Diastolic blood 2022-08-03 12:13:00 77 mm[Hg] [facility] S t [facility] Heart rate 2022-08-03 12:13:00 115 /min [facility] Oxygen saturation in 2022-08-03 12:13:00 93 /min [facility] Arterial blood by Medical nter Pulse oximetry Body temperature 2022-08-03 12:00:00 36.83 Radha [facility] Body height 2022-08-02 21:52:00 160.2 cm [facility] Body weight 2022-08-02 21:52:00 95 kg [facility] BMI 2022-08-02 21:52:00 37.02 kg/m2 [facility] BP Systolic 2022-07-24 13:31:00 136 mm[Hg] BP [...] CT HEAD WO CONTRAST 2022-12-11 Alfonso Mulligan [facility] o f 18:36:49 [facility] URINE DRUG (IMMUNOASSAY) - 2022-12-11 Alfonso Mulligan Unive rsity of COMPREHENSIVE DRUG SCREEN 17:13:00 [facility] URINALYSIS 2022-12-11 Alfonso Mulligan [place] of 17:13:[address] [facility] [address] CHEST PULMONARY ANGIOGRAM 2022-12-11 Alfonso Mulligan Uni versity of 16:26:39 [facility] MAGNESIUM 2022-12-11 Alfonso Mulligan [place] of 14:57:00 [facility] COMP. METABOLIC PANEL (20261) 2022-12-11 Alfonso Mulligan Un iversity of 14:57:00 [facility] D-DIMER 2022-12-11 Alfonso Mulligan [place] of 14:15:00 [facility] XR CHEST 1 VW 2022-12-11 Alfonso Mulligan [place] of 14:10:26 [facility] TROPONIN I 2022-12-11 Alfonso Mulligan [place] of 14:02:00 [facility] CBC WITH DIFF 2022-12-11 Alfonso Mulligan [place] of 14:02:00 [facility] N-TERMINAL PRO-BNP 2022-12-11 Alfonso Mulligan University of 14:02:00 [facility] HB ECG ROUTINE & RHYTHM STRIP 2022-12-11 Alfonso Mulligan Un iversity of 14:01:08 [facility] CONSENT/REFUSAL FOR DIAGNOSIS 2022-12-11 Doctor Unassigned, University of AND TREATMENT 13:52:01 [place] [facility] ECG 12-LEAD 2022-08-03 Unknown, Hl7 [facility] 05:03:32 [facility] ECG 12-LEAD 2022-08-03 Unknown, Hl7 [facility] 05:03:32 [facility] ECG 12-LEAD 2022-08-03 Unknown, Hl7 [facility] 05:03:32 [facility] LIPID PANEL 2022-08-02 Donaldo Hightower [facility] 21:14:00 [facility] TSH/FREE T4 IF INDICATED 2022-08-02 Donaldo Hightower [facility] 21:14:00 [facility] VITAMIN B12 2022-08-[address] [facility] 21:14:00 [facility] HEMOGLOBIN A1C 2022-08-02 Donaldo Hightower [facility] 21:14:00 [facility] COMPREHENSIVE METABOLIC PANEL 2022-08-02 Donaldo Hightower [facility] 21:14:00 [facility] CBC W/PLT COUNT & AUTO 2022-08-02 Donaldo [facility]ightower [facility] DIFFERENTIAL 21:14:00 [facility] RPR 2022-08-[address] [facility] 21:14:00 [facility] HC LAB HIV-1 AG W/HIV-1&2 AB 2022-08-[address] [facility] 21:14:00 [facility] C-REACTIVE PROTEIN 2022-08-[address] [facility] 21:14:00 [facility] CBC W/PLT COUNT & AUTO 2022-08-02 Donaldo Hightower [facility] DIFFERENTIAL 21:14:00 [facility] EKG-SCANNED 2022-08-02 Eliceo Montanez [facility]I 00:00:00 Scanning [facility] CT HEAD WO CONTRAST 2022-08-01 [facility]ence [facility] o f 23:52:15 [facility] GALV ONLY - INFLUENZA A B RSV 2022-08-01 Letitia Chambers Un iversity of PCR 18:28:00 [facility] TRANSTHORACIC ECHO (TTE) 2022-08-01 Kylee Montez ity of COMPLETE W/ CONTRAST 14:42:00 [facility] al Branch MAGNESIUM 2022-08-01 Lorenza Her [place] of 10:42:00 [facility] BASIC METABOLIC PANEL (NA, K, 2022-08-01 Lorenza Her Un iversity of CL, CO2, GLUCOSE, BUN, 10:42:00 [place] [facility] CREATININE, [place]) Branch CBC WITH DIFF 2022-08-01 Lorenza Her [place] of 10:42:00 [facility] N-TERMINAL PRO-BNP 2022-08-01 [facility] of 10:42:00 [facility] POCT GLUCOSE (AUTOMATED) 2022-08-01 Lorenza Her [facility] ity of 06:56:00 [facility] CRITICAL CARE 2022-07-31 Sav Rondon [place] of 22:31:36 [facility] URINALYSIS 2022-07-31 Sav Rondon [place] of 20:52:00 [facility] URINE DRUG (IMMUNOASSAY) - 2022-07-31 [facility] COMPREHENSIVE DRUG SCREEN W/O [place]:52[place] [facility] REFLEX Branch XR CHEST 1 VW 2022-07-31 Sav Rondon [place] of 18:45:17 [facility] LIPASE 2022-07-31 Sav Rondon of 17:58:00 [facility] TROPONIN I 2022-07-31 Sav Rondon [place] of 17:58:00 [facility] COMP. METABOLIC PANEL ([id number]) 2022-07-31 Sav Rondon iversity of 17:58:00 [facility] CBC WITH DIFF 2022-07-31 Sav Rondon of 17:58:00 [facility] PROTHROMBIN TIME / INR 2022-07-31 Sav Rondonit y of 17:58:00 [facility] ACTIVATED PARTIAL THRMPLAS 2022-07-31 Sav Rondon rsity of DAVID 17:58:00 [facility] N-TERMINAL PRO-BNP 2022-07-31 Sav Rondon [place] of 17:58:00 [facility] HB ECG ROUTINE & RHYTHM STRIP 2022-07-31 Sav Rondon iversity of 17:46:28 [facility] NOTICE OF PRIVACY PRACTICES 2022-07-31 Doctor Unassigned, U niversity of 17:35:38 [place] [facility] CONSENT/REFUSAL FOR DIAGNOSIS 2022-07-31 Doctor Unassigned, University of AND TREATMENT 17:35:13 [place] [facility] PHOSPHORUS 2022-05-[address] [facility] of 05:51:00 [facility] MAGNESIUM 2022-05-[address] [facility] of 05:51:00 [facility] BASIC METABOLIC PANEL (NA, K, 2022-05-08 Shefali [place] U niversity of CL, CO2, GLUCOSE, BUN, 05:51:00 [place] [facility] CREATININE, [place]) Branch CBC WITH DIFF 2022-05-[address] [facility] of 05:51:00 [facility] BASIC METABOLIC PANEL (NA, K, 2022-05-07 Cintron [facility] of CL, CO2, GLUCOSE, BUN, 07:09:00 [facility] ical CREATININE, CA) Branch CBC WITH DIFF 2022-05-07 Daniels [facility] of 07:09:00 [facility] POCT GLUCOSE (AUTOMATED) 2022-05-07 Brandyn Mcfarlane [facility] ity of 01:16:00 [facility] HB ABO GROUPING 2022-05-06 Ismael Dunn [place] of 05:07:00 [facility] BASIC METABOLIC PANEL (NA, K, 2022-05-06 Shefali [place] U niversity of CL, CO2, GLUCOSE, BUN, 05:04:00 [place] [facility] CREATININE, [place]) Branch CBC WITH DIFF 2022-05-[address] [facility] of 05:04:00 [facility] KEPPRA (LEVETIRACETAM) 2022-05-06 Shefali [facility] ty of 05:04:00 [facility] MR LUMBAR SPINE WO CONTRAST 2022-05-06 Kneedler, Ender U niversity of 02:54:37 Christopher [facility] ELECTROENCEPHALOGRAM 2022-05-06 Cintron [facility] ty of 00:00:00 [facility] BASIC METABOLIC PANEL (NA, K, 2022-05-[address] [facility] of CL, CO2, GLUCOSE, BUN, 07:57:[address] [facility] ical CREATININE, CA) Branch CBC WITH DIFF 2022-05-05 [facility] of 07:57:00 [facility] PROTHROMBIN TIME / INR 2022-05-05 [facility] ersity of 07:57:00 [facility] ACTIVATED PARTIAL THRMPLAS 2022-05-05 [facility] of DAVID 07:57:00 [facility] FIBRINOGEN 2022-05-05 [facility] of 07:57:00 [facility] EMERGENCY SERVICES AGREEMENTS 2022-05-04 Doctor Unassigned, University of AND AUTHORIZATIONS 05:01:00 [place] [facility] VITAMIN D, 25-OH 2022-04-15 Sen [place] of 16:53:00 [facility] MR THORACIC SPINE WO CONTRAST 2022-04-15 Soumya Chua Un iversity of 11:56:19 [facility] MR CERVICAL SPINE WO CONTRAST 2022-04-15 Soumya Chua Un iversity of 11:20:00 [facility] BASIC METABOLIC PANEL (NA, K, 2022-04-15 Charmaine Morataya Un iversity of CL, CO2, GLUCOSE, BUN, 10:36:00 [facility] ical CREATININE, CA) Branch TEST, URINE 2022-04-15 [facility] of 04:39:00 [facility] URINE DRUG (IMMUNOASSAY) - 2022-04-15 [facility] COMPREHENSIVE DRUG SCREEN 04:39:00 [facility] URINALYSIS 2022-04-15 [facility] of 04:39:00 [facility] TRANSTHORACIC ECHO (TTE) 2022-04-14 Harshil [facility] ity of COMPLETE W/ CONTRAST 16:37:03 [facility] KEPPRA (LEVETIRACETAM) 2022-04-14 Harshil [facility] y of 15:30:00 [facility] MAGNESIUM 2022-04-14 [facility] of 10:03:00 [facility] BASIC METABOLIC PANEL (NA, K, 2022-04-14 John Chuaena Un iversity of CL, CO2, GLUCOSE, BUN, 10:03:00 [place] [facility] CREATININE, [place]) Branch MR LUMBAR SPINE WO CONTRAST 2022-04-14 Harshil [facility] ersity of 02:48:12 [facility] MR STROKE BRAIN WO CONTRAST 2022-04-14 Harshil [facility] ersity of 02:29:[address] [facility] [address] STROKE ANGIOGRAM HEAD 2022-04-13 Sapna Vargas [facility] ersity of 18:40:[address] [facility] [address] STROKE ANGIOGRAM NECK 2022-04-13 Sapna Vargas [facility] ersity of 18:40:[address] [facility] [address] STROKE HEAD WO CONTRAST 2022-04-13 Sapna Vargas Un iversity of 18:36:00 [facility] TROPONIN I 2022-04-13 Sapna Vargas [place] of 18:17:00 [facility] THYROID STIMULATING HORMONE 2022-04-13 [facility] ersity of 18:17:00 [facility] BASIC METABOLIC PANEL (NA, K, 2022-04-13 Sapna Vargas [place] of CL, CO2, GLUCOSE, BUN, 18:17:00 [facility] ical CREATININE, [place]) Branch LIPID PANEL ([id number])(TOTAL 2022-04-13 [facility] sity of CHOLESTEROL, TRIGLYCERIDES, 18:17:00 [facility]) Branch CBC WITHOUT DIFF 2022-04-13 Sapna Vargas [place] o f 18:17:00 [facility] GLYCOSYLATED HEMOGLOBIN (A1C) 2022-04-13 Soumya Chua Un iversity of 18:17:00 [facility] PROTHROMBIN TIME / INR 2022-04-13 Sapna Vargas [facility] sity of 18:17:00 [facility] ACTIVATED PARTIAL THRMPLAS 2022-04-13 Sapna Vargas iversity of DAVID 18:17:00 [facility] COVID-19 (ID NOW RAPID 2022-04-13 [facility]) 18:17:00 [facility] LAB ONLY COVID INTERPRETATION 2022-04-13 Sapna Vargas [place] of 18:17:00 [facility] HB ECG ROUTINE & RHYTHM STRIP 2022-04-13 Sapna Vargas [facility] 18:15:49 [facility] CONSENT/REFUSAL FOR DIAGNOSIS 2022-04-13 Doctor Unassigned, [place] of AND TREATMENT 18:05:14 [place] [facility] HOSPITAL ADMISSION 2022-04-13 Doctor Unassigned, [place] of 05:01:00 [place] [facility] SARS-COV-2 COVID-19 VACCINE 2022-02-19 Doctor Unassigned, U niversity of 12 YRS+,0.3ML,IM (PFIZER - 15:21:12 [place] [facility] URINE DRUG (IMMUNOASSAY) - 2021-11-23 Nichelle Allison U niversity of COMPREHENSIVE DRUG SCREEN W/O 21:21[place] [facility] CT HEAD WO CONTRAST 2021-11-[address] [facility] ty of 20:58:00 [facility] POCT TEST 2021-11-23 [facility] of 20:46:00 [facility] URINALYSIS 2021-11-23 [facility] o f 20:43:00 [facility] LIPASE 2021-11-23 [facility] o f 20:27:00 [facility] TROPONIN I 2021-11-23 [facility] o f 20:27:00 [facility] COMP. METABOLIC PANEL ([id number]) 2021-11-23 [facility] of 20:27:00 [facility] CBC WITH DIFF 2021-11-23 [facility] o f 20:27:00 [facility] POCT GLUCOSE (AUTOMATED) 2021-11-23 Doctor Unassigned, Univ ersity of 20:15:00 [place] [facility] SARS-COV-2 COVID-19 2021-05-24 Doctor Unassigned, Universit y of VACCINE,0.3ML,IM (PFIZER) 14:23:12 [place] [facility] SARS-COV-2 COVID-19 2021-05-03 Doctor Unassigned, Universit y of VACCINE,0.3ML,IM (PFIZER) 14:59:29 [place] [facility] EMERGENCY SERVICES AGREEMENTS 2021-04-16 Doctor Unassigned, [place] of AND AUTHORIZATIONS 05:01:00 [place] [facility] URINALYSIS 2021-03-17 Fabrice Chakraborty [place] of 03:09:00 [facility] XR CHEST 1 VW 2021-03-17 Fabrice Chakraborty [facility] of 01:45:07 [facility] TROPONIN I 2021-03-17 [facility] 01:35:00 [facility] COMP. METABOLIC PANEL ([id number]) 2021-03-17 Fabrice hCakraborty Un iversity of 01:35:00 [facility] CBC WITH DIFF 2021-03-17 [facility] of 01:35:00 [facility] N-TERMINAL PRO-BNP 2021-03-17 [facility] of 01:35:00 [facility] COVID-19 (ID NOW RAPID 2021-03-17 Brian Ray [facility] y of TESTING) 00:58:00 [facility] CONSENT/REFUSAL FOR DIAGNOSIS 2021-03-17 Doctor Unassigned, [facility] AND TREATMENT 00:32:59 [place] [facility] COVID-19 (ID NOW RAPID 2021-02-19 Anali Patel [facility] y of TESTING) 17:04:[address] [facility] [address] ABDOMEN PELVIS W CONTRAST 2021-02-19 Anali Patel Uni versity of 16:41:18 [facility] LIPASE 2021-02-19 Anali Patel [place] of 15:58:00 [facility] COMP. METABOLIC PANEL ([id number]) 2021-02-19 Anali Patel Un iversity of 15:58:00 [facility] CBC WITH DIFF 2021-02-19 Anali Patel [place] of 15:58:00 [facility] URINALYSIS 2021-02-19 Anali Patel [place] of 15:58:00 [facility] NOTICE OF PRIVACY PRACTICES 2021-02-19 Doctor Unassjulee, U niversity of 15:30:46 [place] [facility] CONSENT/REFUSAL FOR DIAGNOSIS 2021-02-19 Doctor Unassigned, [facility] AND TREATMENT 15:30:30 [place] [facility] Plan of Care Planned Activity Planned Date Details Comments Source Future Scheduled 2025-08-02 Lipid panel (procedure) [facility] Test 00:00:00 [code = [id number]] Medical Ce nter Future Scheduled 2025-08-02 Lipid panel (procedure) [facility] Test 00:00:00 [code = [id number]] Medical Ce nter Future Scheduled 2025-08-02 Lipid panel (procedure) [facility] Test 00:00:00 [code = [id number]] Medical Ce nter Future Scheduled 2025-08-02 Lipid panel (procedure) [facility] Test 00:00:00 [code = [id number]] Medical Ce nter Future Scheduled 2025-08-02 Lipid panel (procedure) [facility] Test 00:00:00 [code = [id number]] Medical Ce nter Future Scheduled 2025-08-02 Lipid panel (procedure) [facility] 00:[facility]:00 [code = 25853661] Medical Ce nter Future Scheduled 2025-08-02 Lipid panel (procedure) [facility] 00:00:00 [code = 91823707] Medical Ce nter Future Scheduled 2025-08-02 Lipid panel (procedure) [facility] 00:00:00 [code = 71682990] Medical Ce nter Future Scheduled 2025-08-02 Lipid panel (procedure) [facility] 00:00:00 [code = 79005335] Medical Ce nter Future Scheduled 2025-08-02 Lipid panel (procedure) [facility] 00:00:00 [code = 88645928] Medical Ce nter Future Scheduled 2025-08-02 Lipid panel (procedure) [facility] 00:00:00 [code = 14007984] Medical Ce nter Future Scheduled 2025-08-02 Lipid panel (procedure) [facility] 00:00:00 [code = 56147653] Medical Ce nter Future Scheduled 2025-08-02 Lipid panel (procedure) [facility] 00:00:00 [code = 41259991] Medical Ce nter Future Scheduled 2025-08-02 Lipid panel (procedure) [facility] 00:00:00 [code = 85703620] Medical Ce nter Future Scheduled 2025-08-02 Lipid panel (procedure) [facility] 00:00:00 [code = 00477298] Medical Ce nter Future Scheduled 2023-03-20 Influenza [...] [facility] Booster for [facility] C enter series) [code = COVID-19 [...] [facility]) [code = [facility] VACCINES (1 of 2)] Future Scheduled 2013-12-15 [...] cervix Medical C enter (procedure) [code = 495444903] Future Scheduled 1993-01-14 Screening for malignant [facility] 00:00:00 neoplasm of cervix Medical C enter (procedure) [code = 137652806] Future Scheduled 1993-01-14 Screening for malignant [facility] 00:00:00 neoplasm of cervix Medical C enter (procedure) [code = 142610958] Future Scheduled 1993-01-14 Screening for malignant [facility] 00:00:00 neoplasm of cervix Medical C enter (procedure) [code = 125410282] Future Scheduled 1993-01-14 Screening for malignant [facility] 00:00:00 neoplasm of cervix Medical C enter (procedure) [code = 792179797] Future Scheduled 1993-01-14 Screening for malignant [facility] 00:00:00 neoplasm of cervix Medical C enter (procedure) [code = 876119993] Future Scheduled 1993-01-14 Screening for malignant [facility] 00:00:00 neoplasm of cervix Medical C enter (procedure) [code = 884215415] Future Scheduled 1993-01-14 Screening for malignant [facility] 00:00:00 neoplasm of cervix Medical C enter (procedure) [code = 407448445] Future Scheduled 1993-01-14 Screening for malignant [facility] 00:00:00 neoplasm of cervix Medical C enter (procedure) [code = 873960086] Future Scheduled 1993-01-14 Screening for malignant [facility] 00:00:00 neoplasm of cervix Medical C enter (procedure) [code = 532653998] Future Scheduled 1993-01-14 Screening for malignant [facility] 00:00:00 neoplasm of cervix Medical C enter (procedure) [code = 046830844] Future Scheduled 1993-01-14 Screening for malignant [facility] 00:00:00 neoplasm of cervix Medical C enter (procedure) [code = 289834584] Future Scheduled 1993-01-14 Screening for malignant [facility] 00:00:00 neoplasm of cervix Medical C enter (procedure) [code = 502921119] Future Scheduled 1993-01-14 Screening for malignant [facility] 00:00:00 neoplasm of cervix Medical C enter (procedure) [code = 967793938] Future Scheduled 1993-01-14 Screening for malignant [facility] 00:00:00 neoplasm of cervix Medical C enter (procedure) [code = 103923033] Future Scheduled 1991-01-14 DTAP/TDAP/TD VACCINES (1 [facility] [...] screening Medical Cent er (procedure) [code = 558308765] Future Scheduled 1987-01-14 Human immunodeficiency [facility] virus screening Medical Cent er (procedure) [code = 996443222] Future Scheduled [address] [facility] Counseling [facility] Screening Med ica Center (12+) [code = Tobacco Cessation Counseling and Screening (12+)] Future Scheduled [address] [facility] 00:00:00 Counseling and Screening [facility] ica Center (12+) [code = Tobacco Cessation Counseling and Screening (12+)] Future Scheduled 1972 Screening for malignant [facility] 00:00:00 neoplasm of breast Medical C enter (procedure) [code = 523050061] Future Scheduled 1972 CT Colonography (combo) [facility] 00:00:00 [code = CT Colonography [facility] (combo)] Future Scheduled 1972 Screening for malignant [facility] 00:00:00 neoplasm of colon Medical Ce nter (procedure) [code = 656738830] Future Scheduled 1972 Screening for malignant [facility] 00:00:00 neoplasm of colon Medical Ce nter (procedure) [code = 459144674] Future Scheduled 1972 Screening for malignant [facility] 00:00:00 neoplasm of colon Medical Ce nter (procedure) [code = 564640596] Future Scheduled 1972 Screening for malignant [facility] 00:00:00 neoplasm of colon Medical Ce nter (procedure) [code = 639026908] Future Scheduled 1972 Sigmoidoscopy [code = [facility]oscopy] Medical Cente r Future Scheduled 1972 Screening for malignant [facility] 00:00:00 neoplasm of breast Medical C enter (procedure) [code = 273258289] Future Scheduled 1972 CT Colonography (combo) [facility] 00:00:00 [code = CT Colonography Medi [facility] (combo)] Future Scheduled 1972 Screening for malignant [facility] 00:00:00 neoplasm of colon Medical Ce nter (procedure) [code = 992745730] Future Scheduled 1972 Screening for malignant [facility] 00:00:00 neoplasm of colon Medical Ce nter (procedure) [code = 053795460] Future Scheduled 1972 Screening for malignant [facility] 00:00:00 neoplasm of colon Medical Ce nter (procedure) [code = 096269464] Future Scheduled 1972 Screening for malignant [facility] 00:00:00 neoplasm of colon Medical Ce nter (procedure) [code = 504950881] Future Scheduled 1972 Sigmoidoscopy [code = [facility]oscopy] Medical Cente r Future Scheduled 1972 Screening for malignant [facility] 00:00:00 neoplasm of breast Medical C enter (procedure) [code = 372286502] Future Scheduled 1972 CT Colonography (combo) [facility] 00:00:00 [code = CT Colonography [facility] (combo)] Future Scheduled 1972 Screening for malignant [facility] 00:00:00 neoplasm of colon Medical Ce nter (procedure) [code = 203534668] Future Scheduled 1972 Screening for malignant [facility] 00:00:00 neoplasm of colon Medical Ce nter (procedure) [code = 220035653] Future Scheduled 1972 Screening for malignant [facility] 00:00:00 neoplasm of colon Medical Ce nter (procedure) [code = 906162845] Future Scheduled 1972 Screening for malignant [facility] 00:00:00 neoplasm of colon Medical Ce nter (procedure) [code = 849595122] Future Scheduled 1972 Sigmoidoscopy [code = [facility] S[facility]oidoscopy] Medical Cente r Future Scheduled 1972 Screening for malignant [facility] 00:00:00 neoplasm of breast Medical C enter (procedure) [code = 900012510] Future Scheduled 1972 CT Colonography (combo) [facility] 00:00:00 [code = CT [facility] (combo)] Future Scheduled 1972 Screening for malignant [facility] 00:00:00 neoplasm of colon Medical Ce nter (procedure) [code = 750531397] Future Scheduled 1972 Screening for malignant [facility] 00:00:00 neoplasm of colon Medical Ce nter (procedure) [code = 806976618] Future Scheduled 1972 Screening for malignant [facility] 00:00:00 neoplasm of colon Medical Ce nter (procedure) [code = 648222386] Future Scheduled 1972 Screening for malignant [facility] 00:00:00 neoplasm of colon Medical Ce nter (procedure) [code = 687636224] Future Scheduled 1972 Sigmoidoscopy [code = [facility]oscopy] Medical Cente r Future Scheduled 1972 Screening for malignant [facility] 00:00:00 neoplasm of breast Medical C enter (procedure) [code = 634867600] Future Scheduled 1972 CT Colonography (combo) [facility] 00:00:00 [code = CT Colonography [facility] (combo)] Future Scheduled 1972 Screening for malignant [facility] 00:00:00 neoplasm of colon Medical Ce nter (procedure) [code = 953671142] Future Scheduled 1972 Screening for malignant [facility] 00:00:00 neoplasm of colon Medical Ce nter (procedure) [code = 198557437] Future Scheduled 1972 Screening for malignant [facility] 00:00:00 neoplasm of colon Medical Ce nter (procedure) [code = 182861906] Future Scheduled 1972 Screening for malignant [facility] 00:00:00 neoplasm of colon Medical Ce nter (procedure) [code = 671603794] Future Scheduled 1972 Sigmoidoscopy [code = [facility]oscopy] Medical Cente r Future Scheduled 1972 Screening for malignant [facility] 00:00:00 neoplasm of breast Medical C enter (procedure) [code = 073588591] Future Scheduled 1972 CT Colonography (combo) [facility] 00:00:00 [code = CT [facility] (combo)] Future Scheduled 1972 Screening for malignant [facility] 00:00:00 neoplasm of colon Medical Ce nter (procedure) [code = 443655458] Future Scheduled 1972 Screening for malignant [facility] 00:00:00 neoplasm of colon Medical Ce nter (procedure) [code = 604858006] Future Scheduled 1972 Screening for malignant [facility] 00:00:00 neoplasm of colon Medical Ce nter (procedure) [code = 366821758] Future Scheduled 1972 Screening for malignant [facility] 00:00:00 neoplasm of colon Medical Ce nter (procedure) [code = 648268892] Future Scheduled 1972 Sigmoidoscopy [code = [facility] S[facility]oscopy] Medical Cente r Future Scheduled 1972 Screening for malignant [facility] 00:00:00 neoplasm of breast Medical C enter (procedure) [code = 899916114] Future Scheduled 1972 CT Colonography (combo) [facility] 00:00:00 [code = CT [facility] (combo)] Future Scheduled 1972 Screening for malignant [facility] 00:00:00 neoplasm of colon Medical Ce nter (procedure) [code = 960898843] Future Scheduled 1972 Screening for malignant [facility] 00:00:00 neoplasm of colon Medical Ce nter (procedure) [code = 573882336] Future Scheduled 1972 Screening for malignant [facility] 00:00:00 neoplasm of colon Medical Ce nter (procedure) [code = 852851452] Future Scheduled 1972 Screening for malignant [facility] 00:00:00 neoplasm of colon Medical Ce nter (procedure) [code = 184257847] Future Scheduled 1972 Sigmoidoscopy [code = [facility]oscopy] Medical Cente r Future Scheduled 1972 Screening for malignant [facility] 00:00:00 neoplasm of breast Medical C enter (procedure) [code = 115334910] Future Scheduled 1972 CT Colonography (combo) [facility] 00:00:00 [code = CT [facility]ography [facility] (combo)] Future Scheduled 1972 Screening for malignant [facility] 00:00:00 neoplasm of colon Medical Ce nter (procedure) [code = 825024456] Future Scheduled 1972 Screening for malignant [facility] 00:00:00 neoplasm of colon Medical Ce nter (procedure) [code = 794928644] Future Scheduled 1972 Screening for malignant [facility] 00:00:00 neoplasm of colon Medical Ce nter (procedure) [code = 071102507] Future Scheduled 1972 Screening for malignant [facility] 00:00:00 neoplasm of colon Medical Ce nter (procedure) [code = 398072319] Future Scheduled 1972 Sigmoidoscopy [code = [facility]oscopy] [facility] Future Scheduled 1972 Screening for malignant [facility] 00:00:00 neoplasm of breast Medical C enter (procedure) [code = 962093890] Future Scheduled 1972 CT Colonography (combo) [facility] 00:00:00 [code = CT Colonography [facility] (combo)] Future Scheduled 1972 Screening for malignant [facility] 00:00:00 neoplasm of colon Medical Ce nter (procedure) [code = 907730479] Future Scheduled 1972 Screening for malignant [facility] 00:00:00 neoplasm of colon Medical Ce nter (procedure) [code = 151481249] Future Scheduled 1972 Screening for malignant [facility] 00:00:00 neoplasm of colon Medical Ce nter (procedure) [code = 167478539] Future Scheduled 1972 Screening for malignant [facility] 00:00:00 neoplasm of colon Medical Ce nter (procedure) [code = 673518371] Future Scheduled 1972 Sigmoidoscopy [code = [facility] S[facility]oscopy] Medical Cente r Future Scheduled 1972 Screening for malignant [facility] 00:00:00 neoplasm of breast Medical C enter (procedure) [code = 454261613] Future Scheduled 1972 CT Colonography (combo) [facility] 00:00:00 [code = CT Colonography [facility] (com[facility])] Future Scheduled 1972 Screening for malignant [facility] 00:00:00 neoplasm of colon Medical Ce nter (procedure) [code = 953873275] Future Scheduled 1972 Screening for malignant [facility] 00:00:00 neoplasm of colon Medical Ce nter (procedure) [code = 176907918] Future Scheduled 1972 Screening for malignant [facility] 00:00:00 neoplasm of colon Medical Ce nter (procedure) [code = 274240931] Future Scheduled 1972 Screening for malignant [facility] 00:00:00 neoplasm of colon Medical Ce nter (procedure) [code = 331847583] Future Scheduled 1972 Sigmoidoscopy [code = [facility] S[facility]oidoscopy] Medical Christine r Future Scheduled 1972 Screening for malignant [facility] 00:00:00 neoplasm of breast Medical C enter (procedure) [code = 934549481] Future Scheduled 1972 CT Colonography (combo) [facility] 00:00:00 [code = CT Colonography [facility] (combo)] Future Scheduled 1972 Screening for malignant [facility] 00:00:00 neoplasm of colon Medical Ce nter (procedure) [code = 885525144] Future Scheduled 1972 Screening for malignant [facility] 00:00:00 neoplasm of colon Medical Ce nter (procedure) [code = 256859902] Future Scheduled 1972 Screening for malignant [facility] 00:00:00 neoplasm of colon Medical Ce nter (procedure) [code = 944625088] Future Scheduled 1972 Screening for malignant [facility] 00:00:00 neoplasm of colon Medical Ce nter (procedure) [code = 767137162] Future Scheduled 1972 Sigmoidoscopy [code = [facility]oscopy] Medical Cente r Future Scheduled 1972 Screening for malignant [facility] 00:00:00 neoplasm of breast Medical C enter (procedure) [code = 787521483] Future Scheduled 1972 CT Colonography (combo) [facility] 00:00:00 [code = CT [facility] (combo)] Future Scheduled 1972 Screening for malignant [facility] 00:00:00 neoplasm of colon Medical Ce nter (procedure) [code = 462694425] Future Scheduled 1972 Screening for malignant [facility] 00:00:00 neoplasm of colon Medical Ce nter (procedure) [code = 704527496] Future Scheduled 1972 Screening for malignant [facility] 00:00:00 neoplasm of colon Medical Ce nter (procedure) [code = 748408754] Future Scheduled 1972 Screening for malignant [facility] 00:00:00 neoplasm of colon Medical Ce nter (procedure) [code = 810469454] Future Scheduled 1972 Sigmoidoscopy [code = [facility] S[facility]oidoscopy] Medical Cente r Future Scheduled 1972 Screening for malignant [facility] 00:00:00 neoplasm of breast Medical C enter (procedure) [code = 862052669] Future Scheduled 1972 CT Colonography (combo) [facility] 00:00:00 [code = CT [facility] (combo)] Future Scheduled 1972 Screening for malignant [facility] 00:00:00 neoplasm of colon Medical Ce nter (procedure) [code = 827922008] Future Scheduled 1972 Screening for malignant [facility] 00:00:00 neoplasm of colon Medical Ce nter (procedure) [code = 815733435] Future Scheduled 1972 Screening for malignant [facility] 00:00:00 neoplasm of colon Medical Ce nter (procedure) [code = 645201642] Future Scheduled 1972 Screening for malignant [facility] 00:00:00 neoplasm of colon Medical Ce nter (procedure) [code = 745792483] Future Scheduled 1972 Sigmoidoscopy [code = [facility] 00:[facility] S[facility]oidoscopy] Medical Christine r Future Scheduled 1972 Screening for malignant [facility] 00:00:00 neoplasm of breast Medical C enter (procedure) [code = 083781681] Future Scheduled 1972 CT Colonography (combo) [facility] 00:00:00 [code = CT [facility] (combo)] Future Scheduled 1972 Screening for malignant [facility] 00:00:00 neoplasm of colon Medical Ce nter (procedure) [code = 376141561] Future Scheduled 1972 Screening for malignant [facility] 00:00:00 neoplasm of colon Medical Ce nter (procedure) [code = 442714402] Future Scheduled 1972 Screening for malignant [facility] 00:00:00 neoplasm of colon Medical Ce nter (procedure) [code = 948295734] Future Scheduled 1972 Screening for malignant [facility] 00:00:00 neoplasm of colon Medical Ce nter (procedure) [code = 430357899] Future Scheduled 1972 Sigmoidoscopy [code = [facility] 00:[facility] S[facility]oidoscopy] Medical Christine r Future Scheduled 1972 Screening for malignant [facility] 00:00:00 neoplasm of breast Medical C enter (procedure) [code = 331701114] Future Scheduled 1972 CT Colonography (combo) [facility] 00:00:00 [code = CT [facility] (combo)] Future Scheduled 1972 Screening for malignant [facility] 00:00:00 neoplasm of colon Medical Ce nter (procedure) [code = 098415432] Future Scheduled 1972 Screening for malignant [facility] 00:00:00 neoplasm of colon Medical Ce nter (procedure) [code = 415717254] Future Scheduled 1972 Screening for malignant [facility] 00:00:00 neoplasm of colon Medical Ce nter (procedure) [code = 166836687] Future Scheduled 1972 Screening for malignant [facility] 00:00:00 neoplasm of colon Medical Ce nter (procedure) [code = 724557277] Future Scheduled 1972 Sigmoidoscopy [code = [facility]oscopy] Medical Christine r Goal Plan of Care Note [code = 37105-3] Goal Plan of Care Note [code = 39734-4] Goal Plan of Care Note [code = 35331-3] Goal Plan of Care Note [code = 16844-3] Goal Plan of Care Note [code = 32969-3] Goal Plan of Care Note [code = 54041-2] Goal Plan of Care Note [code = 61322-0] Goal Plan of Care Note [code = 18662-4] Goal Plan of Care Note [code = 77748-9] Goal Plan of Care Note [code = 75840-6] Goal Plan of Care Note [code = 63664-9] Goal Plan of Care Note [code = 81794-0] Goal Plan of Care Note [code = 41107-5] Goal Plan of Care Note [code = 66637-8] Goal Plan of Care Note [code = 45297-8] Goal Plan of Care Note [code = 48022-6] Goal Plan of Care Note [code = 16967-0] Goal Plan of Care Note [code = 42349-2] Goal Plan of Care Note [code = 68278-7] Goal Plan of Care Note [code = 82520-4] Goal Plan of Care Note [code = 44021-1] Goal Plan of Care Note [code = 40215-8] Goal Plan of Care Note [code = 17228-6] Goal Plan of Care Note [code = 41465-4] Goal Plan of Care Note [code = 24203-9] Goal Plan of Care Note [code = 39651-9] Goal Plan of Care Note [code = 31929-5] Goal Plan of Care Note [code = 22213-7] Goal Plan of Care Note [code = 79453-7] Goal Plan of Care Note [code = 15619-4] Goal Plan of Care Note [code = 75923-8] Goal Plan of Care Note [code = 59113-7] Goal Plan of Care Note [code = 86326-2] Goal Plan of Care Note [code = 58422-9] Goal Plan of Care Note [code = 58787-6] Encounters Start End Encounter Admission Attending Care Care Encounter Source Date/Time Date/Time Type Type Clinicians Facility Department ID 2021-05-[address] [facility] [id number] Univers 18:48:[address] [facility] 2021-05-[address] [facility] [id number] Univers 12:43:[address] [facility] 2022-12-11 2022-12-11 Emergency X Alfonso MULLIGAN [facility] ERT [id number] Univers 08:56:00 15:29:00 ity of [facility] 2022-12-11 2022-12-11 Emergency Alfonso Mulligan [facility] 1.2.840.114 [id number] Univers 08:56:00 15:29:00 Lorelei HERNANDEZ 350.1.13.10 i [id number] [place] [address] [place] 2022-11-17 2022-11-18 Emergency X BRIANA, [facility] ERT [id number] Univers 17:25:00 01:19:[address] [facility] 2022-11-17 2022-11-18 [facility] [id number] Univers 17:25:00 01:19:00 Ritchie Stoner SOHABRANDI 350.1.13.10 [place] [id number] [facility] [address] 2022-08-28 2022-08-28 Patient Shy BeckmanCorbin 1.2.840.114 [id number] Univers 00:00:00 00:00:00 Outreach E [place] 350.1.13.10 [place] [id number] [facility] [address] 2022-08-20 2022-08-20 Patient Shy BeckmanCorbin 1.2.840.114 [id number] Univers 00:00:00 00:00:00 Outreach E [place] 350.1.13.10 [place] [id number] [facility] [address] 2022-08-022022-08-03 [facility] [id number] 17:30:00 14:29:00 Encounter Nikita Yepezjal Ne Timmons [facility] 2022-08-02 2022-08-03 [facility] Halima Mendoza [facility] [id number] 17:30:00 14:29:00 Encounter Nikita Yepezjal Ne Timmons [facility], [facility] 2022-08-02 2022-08-03 Outpatient ER [facility], [facility] Neurology [id number] SLE 17:30:00 14:29:00 [facility] 2022-08-03 2022-08-03 Orders [facility] [id number] 00:00:00 00:00:00 Only [facility] 2022-08-03 2022-08-03 Orders [facility] [id number] 00:00:00 00:00:00 Only [facility] 2022-08-02 2022-08-02 Travel [facility] [id number] [facility] 00:[facility]00 00:00:00 [facility] 2022-08-02 2022-08-02 Travel [facility] [id number] [facility] 00:[facility]00 00:00:00 [facility] 2022-07-31 2022-08-01 Inpatient X ESSENCE AZKEVIN [facility] [id number] Univers 11:42:00 21:48:[address] [facility] 2022-07-31 2022-08-01 [facility] 1.2.840.1 [id number] Univers 11:42:00 21:48:00 Encounter Lorenza Her 350.1.13.10 reinaldo [facility] 4.2.7.2.686 [facility] [id number] [place] [address] [place] 2022-08-01 2022-08-01 Transition BLAYNE Nicole 1.2.840.114 [id number] Univers 00:00:00 00:00:00 of Care Maria Teresa [place] 350.1.13.10 ity [facility] [place] [id number] [facility] [address] 2022-07-28 2022-07-28 Outpatient [facility] [id number] Adria 14:41:38 14:41:38 0109 [facility] [place] 2022-07-28 2022-07-28 Outpatient [id number] [id number] 00:00:00 00:00:00 Visit [id number] 2022-07-24 2022-07-24 Outpatient [facility] [id number] Adria 13:24:40 13:24:40 0105 [facility] [place] 2022-05-23 2022-05-23 Outpatient [facility] [id number] Adria 14:51:01 14:51:01 1104 [facility] [place] 2022-05-23 2022-05-23 Outpatient [id number] 00:00:00 00:00:00 Visit [id number] 2022-05-04 2022-05-08 Outpatient X CHANTEL MATTHEWS [facility] S [place] [id number] Univers 20:22:00 14:44:[address] [facility] 2022-05-04 2022-05-08 Emergency BrinerBrandyn 1.2.840.1 14 [id number] Univers 20:22:00 14:44:00 Chantel Matthews 350.1.[address] [facility] 4.2.7.2.686 Javier as [id number] [facility] [address] 2022-04-13 2022-04-15 Inpatient X CONRAD AZKEVIN BERNARDINO [id number] Univers 13:06:00 15:00:[address] [facility] 2022-04-13 2022-04-15 [facility] Sapna Vargas CIRO 1.2.84 0.114 [id number] Univers 13:06:00 15:00:00 Encounter Glory Esteves 350. 1.13.10 ity of [facility] 4.2.7.2.686 [place] [id number] [facility] [address] 2022-02-19 2022-02-19 Imm/Inj Vaccine, [facility] [place] 1.2.840.114 [id number] Univers 10:20:00 10:30:00 Visit Jose Frederick 350.1.13.10 ity of PEDIATRIC 4.2.7.2.686 [facility] [phone] [facility] [address] 2022-02-19 2022-02-19 [address]SE [facility] [facility] [id number] Univers 10:20:00 10:20:00 ity of [facility] 2021-11-23 2021-11-23 Emergency X ESTEFANY [facility] ERT [id number] Univers 15:07:00 17:03:00 NICHELLE ity of [facility] 2021-11-23 2021-11-23 Emergency Sav Rondon [facility] 1.2.840. 114 [id number] Univers 15:07:00 17:03:00 Nichelle Allison 350.1.13. 10 ity of [place] 4.2.7.2.686 [facility] [id number] [facility] [address] 2021-11-21 2021-11-[address] [facility] [id number] Univers 09:40:00 09:40:00 ity of [facility] 2021-05-24 2021-05-24 Outpatient R JOSE [facility] [id number] Univers 09:30:00 09:30:00 ity of [facility] 2021-05-24 2021-05-24 Imm/Inj Vaccine, [facility] [place] 1.2.840.114 [id number] Univers 08:47:51 08:57:51 Visit Jose Frederick 350.1.13.10 ity of [place].2.[place] [facility] [id number] [facility] [address] 2021-05-03 2021-05-03 Outpatient R JOSE [facility] [id number] Univers 09:40:00 09:59:35 ity of [facility] 2021-05-03 2021-05-03 Imm/Inj Vaccine, Chung Pierson [facility] [place] jaimie 1.2.840.114 [id number] Univers 09:17:43 09:59:35 Visit Jose Frederick 350.1.13.10 ity of [facility] 4[place]2.7.2.[place] [facility] [phone] [facility] [address] [place] 2021-04-16 2021-04-16 Orders Doctor EWELINA 1.2.840.114 [id number] Univers 00:00:00 00:00:00 Only Unassigned, HOSEA 350.1.13.10 ity of [place] [facility] 4.2.7.2.686 Javier as [phone] [facility] [address] 2021-03-17 2021-03-17 Telephone EWELINA Nava 1.2.838.695 [id number] Univers 00:00:00 00:00:00 Aneatrice HOSEA 350.1.13.10 ity of [facility] 4.2.7.2.686 Javier as [id number] [facility] [address] 2021-03-16 2021-03-16 Emergency Palmer [facility] 1.2.840.114 [id number] Univers 20:08:00 23:24:00 Shinta Julio Cesar 350.1.13.10 i [place] of [place]2.[place] [id number] [facility] [address] 2021-03-14 2021-03-14 Urgent DamienhiLydia conde [facility] 1.2.840.114 [id number] Univers 18:59:34 20:19:13 Care Unknown, Attending Health 350.1.13.10 ity of [place] 4.2.7.2.686 Javier as Prem?Blea [id number] Ms damon dahl [address] [place] [address] Medical Office Building 2021-03-14 2021-03-14 Outpatient R UNKNOWN, [facility] [id number] Univers 19:00:00 19:00:[address] [facility] 2021-02-19 2021-02-19 Emergency Eliana, [facility] 1.2.360.583 [id number] Univers 10:49:00 14:48:00 Anali Hernandez 350.1.13.10 i ty of [place]2.[place] [phone] [place] [address] [place] 2019-03-09 2019-03-09 [facility] 1.2.840.114 [id number] 00:00:00 00:00:00 Yehuda Hernandez 350.1.13.10 [place] 4.2.7.2.686 Professio [id number] [address] 2019-03-09 2019-03-09 [facility] 1.2.840.114 [id number] Univers 00:00:00 00:00:00 Yehuda Hernandez 350.1.13.10 ity [place] 4.2.7.2.686 [facility] [phone] Ms dical [address] Results Test Description Test Time Test Comments Results Result Comments Source MAGNESIUM 2022-12-11 17:14:06 Test Item Value Reference Range Interpretation Comme nts MAGNESIUM (test code = 2197442212) 1.9 mg/dL 1.7-2.4 Lab Interpretation (test code = 69284-2) Normal [facility] (78304)2022-12-11 15:16:25 Test Item Value Reference Range Interpretation Comments NA (test code = 139 mmol/L 135-145 6699513525) K (test code = 3.5 mmol/L 3.5-5.0 8016335079) CL (test code = 107 mmol/L 98-108 1027470408) CO2 TOTAL (test code = 24 mmol/L 23-31 8780470161) AGAP (test code = 8 2-16 8162043502) BUN (test code = 9 mg/dL 7-23 7223239259) GLUCOSE (test code = 129 mg/dL 70-110 H 9425359440) CREATININE (test code = 0.68 mg/dL 0.50-1.04 2583876094) TOTAL BILI (test code = 0.5 mg/dL 0.1-1.5 4650426013) CALCIUM (test code = 8.9 mg/dL 8.6-10.6 8602115683) T PROTEIN (test code = 6.3 g/dL 6.3-8.2 3557187738) ALBUMIN (test code = 3.8 g/dL 3.5-5.0 3095675407) ALK PHOS (test code = 87 U/L 34-122 2616673788) ALTv (test code = 24 U/L 5-35 1742-6) AST(SGOT) (test code = 21 U/L 13-40 8361251038) eGFR (test code = 91.6 mL/min/1.73m2 5935874020) LYNDSAY (test code = LYNDSAY) Association of [...] tests). Lab Interpretation Abnormal (test code = 89905-2) [facility] [id number] 15:10:45 Test Item Value Reference Range Interpretation Comments TROPONIN I (test code = 0.015 ng/mL <=0.034 3899771661) LYNDSAY (test code = LYNDSAY) Reference (Normal) [...] biotin. Lab Interpretation Normal (test code = 72697-9) [facility] [id number] 15:07:48 Test Item Value Reference Range Interpretation Comments NT-proBNP (test code = 1460 pg/mL <=125 H 5077777819) LYNDSAY (test code = LYNDSAY) Biotin has been reported to cause a negative bias, interpret results relative to patient's use of biotin. Lab Interpretation (test Abnormal code = 22313-4) [facility] TylerD-[id number] 14:45:24 Test Item Value Reference Interpretation Comments Range D-DIMER (test code = 0.99 See_Comment H [Autom ated 7070041937) message] The system which generated this result [...] diagnosis. Lab Interpretation Abnormal (test code = 48872-7) [facility] WITH [id number] 14:14:48 Test Item Value Reference Range Interpretation [...] RDW-SD (test code = 47.8 fL 39.0-49.9 23209-8) RDW-CV (test code = 16.9 % 12.0-15.5 H 788-0) PLT (test code = 507 See_Comment H [Automated 777-3) message] The sy stem which generated this result transmitted reference range : 166 - 358 10*3/ ?L. The reference r zoe was not used to interpret this result as normal/abnormal . MPV (test code = 8.2 fL 9.5-12.9 L 18719-2) NRBC/100 WBC (test 0.0 See_Comment [Automat ed code = 5790474291) message] The system which generated this result transmitted reference range : 0.0 - 10.0 /100 WBCs. The refer ence range was not u sed to interpret th is result as normal/abnormal . NRBC x10^3 (test code See_Comment [Auto mated = 3159522807) message] The s ystem which generated this result transmitted reference range : 10*3/?L. The reference range was not used to interpret this result as normal/abnormal . GRAN MAT (NEUT) % 64.5 % (test code = 770-8) IMM GRAN % (test code 0.30 % = 9078463265) LYMPH % (test code = 25.6 % 736-9) MONO % (test code = 7.5 % 5905-5) EOS % (test code = 1.0 % 713-8) BASO % (test code = 1.1 % 706-2) GRAN MAT x10^3(ANC) 5.07 10*3/uL 1.88-7.09 (test code = 9718512845) IMM GRAN x10^3 (test 0.00-0.06 code = 4638522273) LYMPH x10^3 (test code 2.01 10*3/uL 1.32-3.29 = 731-0) MONO x10^3 (test code 0.59 10*3/uL 0.33-0.92 = 742-7) EOS x10^3 (test code = 0.08 10*3/uL 0.03-0.39 711-2) BASO x10^3 (test code 0.09 10*3/uL 0.01-0.07 H = 704-7) Lab Interpretation Abnormal (test code = 19278-8) [facility] 13:17:22 Test Item Value Reference Range Interpretation Comments RPR SCREEN (IQzone) (test code = Nonreactive Nonreactive 420) HEMOGLOBIN [id number] 10:39:49 Test Item Value Reference Range Interpretation Comments HEMOGLOBIN A1C 5.8 % See_Comment H [Automated m essage] ELECTROPHORESIS (IQzone) The system which (test code = 3811) generated this result transmitted ref erence range: <=5.6%. The reference range was not used to int erpret this result as normal/abnormal . "The A1c is measured using a NGSP-certified method. HbA1c value equal to or greater than 6.5% as thediagnosis cutoff for diabetes. An HbA1c value of 5.7- 6.4% indicates increased risk for diabetes (prediabetes)."Vaccine Customer Representative ID - ADM VITAMIN [id number] 22:48:27 Test Item Value Reference Range Interpretation Comments VITAMIN B12 (BEAKER) (test code = 227 pg/mL 213-816 774) Vaccine Customer Representative ID - MARCOTSH/FREE T4 IF [id number] 22:08:28 Test Item Value Reference Range Interpretation Comments THYROID STIMULATING HORMONE 3.309 uIU/mL 0.350-4.940 (BEAKER) (test code = 772) Vaccine Customer Representative ID - JSHIV-1 ANTIGEN WITH HIV-1/2 [id number] 22:08:28 Test Item Value Reference Range Interpretation Comments HIV-1 ANTIGEN WITH HIV 1\\T\\2 Nonreactive Nonreactive ANTIBODY (2) (BEAKER) (test code = 2586) Vaccine Customer Representative ID - JSC-REACTIVE [id number] 21:49:44 Test Item Value Reference Range Interpretation Comments C-REACTIVE PROTEIN (BEAKER) (test 0.35 mg/dL 0.00-0.50 code = 676) Vaccine Customer Representative ID - JSCOMPREHENSIVE METABOLIC [id number] 21:49:43 Test Item Value Reference Range Interpretation [...] decreased 60-89 G3a Mildl y to moderately 45- 59 G3b Moderately to s everely 30-44 G4 Severl y decreased 15-29 G5 Kidney failure <15Reported eGF R is based on the CKD-EPI 2020 equation that d oes not use a race coefficientEsti mated GFR is not as accur ate as Creatinine Graciela pilar in predicting glom erular filtration rate . Estimated GFR is not appl icable for dialysis patien ts Vaccine Customer Representative ID - JSLIPID [id number] 21:49:43 Test Item Value Reference Range Interpretation [...] Borderline 130-159 High 160-189 Very High >=190 Vaccine Customer Representative ID - JSCBC W/PLT COUNT & AUTO [id number] 21:34:03 Test Item Value Reference Range Interpretation [...] Interpretation Comments Height (test code = in 5259656617) Weight (test code = lbs 7341139634) Systolic BP (test code = mmHg 4525266869) Diastolic BP (test code mmHg = 3467980692) Heart Rate (test code = bpm 4198076376) BSA (test code = 2.00 m2 9008181108) Ao root diam (test code 3.20 cm = 7678509379) Aortic root (test code = 3.2 cm 1444177047) Ao root annulus (test 3.2 cm code = 5267006479) LVOT diameter (test code 1.99 cm = 3532475904) LVOT area (test code = 3.10 cm2 7307000566) LVIDD (test code = 5.10 cm 8324820052) Left Ventricular End 123.0 mL Diastolic Volume by Teichholz Method (test code = 0692625) IVS (test code = 1.34 cm 8521416605) Interventricular Septum 1.34 cm Diastolic Thickness by 2D (test code = 3595985) LVPWD (test code = 1.34 cm 9408908272) PW (test code = 1.34 cm 0.6-1.0 1641737396) EF(Teich) (test code = 41.80 % 2306343344) LVIDS (test code = 4.00 cm 8090424665) Left Ventricular End 71.5 mL Systolic Volume by Teichholz Method (test code = 3492562) FS (test code = 21 % 0199475619) EF - 2D (test code = 41.80 % 85951480) LA size (test code = 4.6 cm 2438353218) Pulmonic Regurgitant End 119.4 cm/s Max Velocity (test code = 4940206660) LAV(MOD-sp4) (test code 95.00 mL = 6287336331) E wave decelartion time 0.15 s (test code = 9377694587) MV stenosis pressure 1/2 45.6 ms time (test code = 3317485056) MV Peak A Evette (test code 123.8 cm/s = 2715684698) MV Peak E Evette (test code 109.7 cm/s = 1860486380) E/A ratio (test code = ratio 2064575433) MR max PG (test code = 87.20 mm[Hg] 0512135891) MR max evette (test code = 466.90 cm/s 8645266849) Mr max evette (test code = 466.9 m/s 1700624607) MV Prop V (test code = 51.00 cm/s 7198466360) MV E/e' septal (test 8.1 cm/s code = 5201015088) Tapse (test code = 2.21 cm 6540587235) LVOT stroke volume (test 49.80 cm3 code = 7469484404) LVOT peak evette (test code 89.1 cm/s = 1737031618) LVOT mn grad (test code mmHg = 4765083385) AV LVOT peak gradient mmHg (test code = 9721087838) LVOT peak VTI (test code 16.0 cm = 5988614680) LV V1 mean (test code = 64.30 cm/s 0125480752) Aortic valve mean 133.8 cm/s velocity (test code = 9353144957) Ao peak evette (test code = 175.3 cm/s 0945803912) Ao VTI (test code = 32.2 cm 3952427698) AV area by cont VTI 1.6 cm2 (test code = 5324621046) AV area peak evette (test 1.6 cm2 code = 8479266772) Ao max PG (test code = 12.30 mm[Hg] 1109206070) AV peak gradient (test mmHg code = 8464329043) AV valve area (test code 1.55 cm2 = 7317203178) AV mean gradient (test mmHg code = 9059731592) AV regurgitation 358.5 ms pressure 1/2 time (test code = 1664680701) AI dec slope (test code 364.20 cm/s2 = 2469289211) AI max evette (test code = 445.80 cm/s 8486077390) AI max PG (test code = 79.50 mm[Hg] 3720157167) Radiology Study observation (narrative) (test code = 60341-6) LYNDSAY (test code = LYNDSAY) ?Left?Ventricle: Left [...] mL of Lumason ultrasound enhancing agent used. [facility]2022-[facility]-01 10:43:32 Test Item Value Reference Range Interpretation Comments POCT GLU (test code = 8445269381) 148 mg/dL 70-110 H Lab Interpretation (test code = Abnormal 61203-3) [facility]IV[facility] PARTIAL THRMPLAS [id number] 18:39:45 Test Item Value Reference Range Interpretation Comments APTT Patient (test See_Comment [Automat ed code = 3173-2) message] The system which generated this result transmitted reference range : 23 - 38 Seconds . The reference range was not used to interpr et this result as normal/abnormal . LYNDSAY (test code = LYNDSAY) The [facility] patient population mean normal value for aPTT is 30 seconds. Lab Interpretation Normal (test code = 49032-9) [facility] TylerPROTHROMBIN TIME / [id number] 18:37:42 Test Item Value Reference Range Interpretation [...] tions. Lab Interpretation (test Normal code = 98963-4) [facility] [id number] 18:32:01 Test Item Value Reference Interpretation Comments Range TROPONIN I (test 0.019 ng/mL See_Comment [Automated code = 7493760163) message] The system which generated this result [...] biotin. Lab Interpretation Normal (test code = 50938-4) [facility] [id number] 18:29:01 Test Item Value Reference Range Interpretation Comments NT-proBNP (test code 2770 pg/mL See_Comment H [Autom ated = 2851213388) message] The system which generated this result transmitted reference range : <=125. The reference range was not used to interpret this result as normal/abnormal . LYNDSAY (test code = LYNDSAY) Biotin has been reported to cause a negative bias, interpret results relative to patient's use of biotin. Lab Interpretation Abnormal (test code = 87803-4) [facility] Tyler[facility]. METABOLIC PANEL (62180)2022-07-31 18:21:42 Test Item Value Reference Range Interpretation Comments NA (test code = 136 mmol/L 135-145 6997026794) K (test code = 4.6 mmol/L 3.5-5.0 3654117152) CL (test code = 104 mmol/L 98-108 1772366767) CO2 TOTAL (test code = 26 mmol/L 23-31 5300212737) AGAP (test code = 2-16 9081912318) BUN (test code = 9 mg/dL 7-23 2520018687) GLUCOSE (test code = 97 mg/dL 70-110 1410642571) CREATININE (test code = 0.64 mg/dL 0.50-1.04 1173432793) TOTAL BILI (test code = 0.5 mg/dL 0.1-1.6 5096606287) CALCIUM (test code = 8.2 mg/dL 8.6-10.6 L 5671149656) T PROTEIN (test code = 6.5 g/dL 6.3-8.2 7859821293) ALBUMIN (test code = 3.9 g/dL 3.5-5.0 1098853148) ALK PHOS (test code = 93 U/L 34-122 4593703058) ALTv (test code = 18 U/L 5-35 1742-6) AST(SGOT) (test code = 19 U/L 13-40 4308966312) eGFR (test code = mL/min/1.73m2 1248839316) LYNDSAY (test code = LYNDSAY) Association of [...] tests). Lab Interpretation Abnormal (test code = 73311-2) [facility]IPASE2023-[facility]-12 18:21:01 Test Item Value Reference Range Interpretation Comments LIPASE (test code = 0101856437) 54 U/L 0-220 Lab Interpretation (test code = Normal 70410-2) [facility] WITH [id number] 18:07:00 Test Item Value Reference Range Interpretation [...] (test code = 53.1 fL 39.0-49.9 H 32612-6) RDW-CV (test code = 17.0 % 12.0-15.5 H 788-0) PLT (test code = See_Comment H [Automated 777-3) message] The sy stem which generated this result transmitted reference range : 166 - 358 10*3/ ?L. The reference r zoe was not used to interpret this result as normal/abnormal . MPV (test code = 8.2 fL 9.5-12.9 L 04965-8) NRBC/100 WBC (test See_Comment [Automat ed code = 4664040090) message] The system which generated this result transmitted reference range : 0.0 - 10.0 /100 WBCs. The refer ence range was not u sed to interpret th is result as normal/abnormal . NRBC x10^3 (test code See_Comment [Auto mated = 1244900909) message] The s ystem which generated this result transmitted reference range : 10*3/?L. The reference range was not used to interpret this result as normal/abnormal . GRAN MAT (NEUT) % 64.0 % (test code = 770-8) IMM GRAN % (test code 0.40 % = 8143681815) LYMPH % (test code = 27.3 % 736-9) MONO % (test code = 6.5 % 5905-5) EOS % (test code = 1.1 % 713-8) BASO % (test code = 0.7 % 706-2) GRAN MAT x10^3(ANC) 5.46 10*3/uL 1.88-7.09 (test code = 6114487641) IMM GRAN x10^3 (test 0.03 10*3/uL 0.00-0.06 code = 1695363775) LYMPH x10^3 (test code 2.32 10*3/uL 1.32-3.29 = 731-0) MONO x10^3 (test code 0.55 10*3/uL 0.33-0.92 = 742-7) EOS x10^3 (test code = 0.09 10*3/uL 0.03-0.39 711-2) BASO x10^3 (test code 0.06 10*3/uL 0.01-0.07 = 704-7) Lab Interpretation Abnormal (test code = 05615-1) [facility] (NA, K, CL, CO2, GLUCOSE, BUN, CREATININE, CA)2022-05-08 06:37:01 Test Item Value Reference Range Interpretation Comments NA (test code = 137 mmol/L 135-145 3671872076) K (test code = 3.8 mmol/L 3.5-5 3305423444) CL (test code = 103 mmol/L 98-108 4394361798) CO2 TOTAL (test code = 24 mmol/L 23-31 5017606288) AGAP (test code = 2-16 7209708907) BUN (test code = 13 mg/dL 7-23 8224644200) GLUCOSE (test code = 90 mg/dL 70-110 1370056549) CREATININE (test code = 0.69 mg/dL 0.5-1.04 0806849848) CALCIUM (test code = 8.5 mg/dL 8.6-10.6 L 6583060972) eGFR (test code = mL/min/1.73m2 0868958394) LYNDSAY (test code = LYNDSAY) Association of [...] tests). Lab Interpretation Abnormal (test code = 27417-1) [facility]2022-[facility]-20 06:37:01 Test Item Value Reference Range Interpretation Comments MAGNESIUM (test code = 7821326842) 2.1 mg/dL 1.7-2.4 Lab Interpretation (test code = Normal 90502-0) [facility]PHOSPHORUS2022-10-20 06:37:01 Test Item Value Reference Range Interpretation Comments PHOSPHORUS (test code = 2748853498) 4.7 mg/dL 2.5-5 Lab Interpretation (test code = Normal 48681-1) [facility] Tyler[facility] WITH [id number] 06:11:54 Test Item Value Reference Range Interpretation [...] (test code = 51.0 fL 39-49.9 H 32570-3) RDW-CV (test code = 16.5 % 12-15.5 H 788-0) PLT (test code = See_Comment H [Automated 777-3) message] The sy stem which generated this result transmitted reference range : 166 - 358 10*3/ ?L. The reference r zoe was not used to interpret this result as normal/abnormal . MPV (test code = 8.3 fL 9.5-12.9 L 54372-1) NRBC/100 WBC (test See_Comment [Automat ed code = 3339496375) message] The system which generated this result transmitted reference range : 0.0 - 10.0 /100 WBCs. The refer ence range was not u sed to interpret th is result as normal/abnormal . NRBC x10^3 (test code See_Comment [Auto mated = 8275089756) message] The s ystem which generated this result transmitted reference range : 10*3/?L. The reference range was not used to interpret this result as normal/abnormal . GRAN MAT (NEUT) % 64.5 % (test code = 770-8) IMM GRAN % (test code 0.50 % = 6027533236) LYMPH % (test code = 27.1 % 736-9) MONO % (test code = 6.6 % 5905-5) EOS % (test code = 0.6 % 713-8) BASO % (test code = 0.7 % 706-2) GRAN MAT x10^3(ANC) 5.28 10*3/uL 1.88-7.09 (test code = 3175512605) IMM GRAN x10^3 (test 0.04 10*3/uL 0-0.06 code = 4636569484) LYMPH x10^3 (test code 2.22 10*3/uL 1.32-3.29 = 731-0) MONO x10^3 (test code 0.54 10*3/uL 0.33-0.92 = 742-7) EOS x10^3 (test code = 0.05 10*3/uL 0.03-0.39 711-2) BASO x10^3 (test code 0.06 10*3/uL 0.01-0.07 = 704-7) Lab Interpretation Abnormal (test code = 53116-0) [facility]2022-05-07 01:18:10 Test Item Value Reference Range Interpretation Comments POCT GLU (test code = 1402241803) 120 mg/dL 70-110 H Lab Interpretation (test code = Abnormal 58215-8) [facility] TylerType and Screen - ONCE [id number] 05:46:35 Test Item Value Reference Range Interpretation Comments ABO & RH (test code O POSITIVE Performe d at [facility] = 20) Laboratory Serv [facility] Blood [facility]3 [facility] [address]Lxnq Free: [phone] A No. [id number] IAT (test code = Negative Performed a t [facility] 1185) Laboratory Serv [facility] Blood [facility] [address]Ozwe Free: [phone] A No. [id number] [facility]OL[facility] PAN[facility] (NA, K, CL, CO2, GLUCOSE, BUN, CREATININE, CA)2022-05-05 08:22:57 Test Item Value Reference Range Interpretation Comments NA (test code = 136 mmol/L 135-145 8521642420) K (test code = 4.9 mmol/L 3.5-5 7911135974) CL (test code = 108 mmol/L 98-108 8352885125) CO2 TOTAL (test code = 22 mmol/L 23-31 L 9185476629) AGAP (test code = 2-16 0823553763) BUN (test code = 12 mg/dL 7-23 3506341135) GLUCOSE (test code = 155 mg/dL 70-110 H 2560593274) CREATININE (test code = 0.63 mg/dL 0.5-1.04 9043070815) CALCIUM (test code = 8.4 mg/dL 8.6-10.6 L 2959500407) eGFR (test code = mL/min/1.73m2 8485569910) LYNDSAY (test code = LYNDSAY) Association of [...] tests). Lab Interpretation Abnormal (test code = 59617-8) [facility] TylerPROTHROMBIN TIME / [id number] 08:22:37 Test Item Value Reference Range Interpretation Comments PROTIME PATIENT (test See_Comment [Auto mated message] code = 5964-2) The system [employer] generated this result transmitted ref erence range: 10.1 - 1 2.6 Seconds. The re ference range was not u sed to interpret this result as normal/abnor mal. INR (test code = 6301-6) Nor mal INR <1.1; Warfarin Therap eutic range 2.0 to 3. 0 or 2.5 to 3.5, dep ending upon the indica tions. Lab Interpretation (test Normal code = 54329-8) [facility] TyleraPTT[facility] 08:22:37 Test Item Value Reference Range Interpretation Comments APTT Patient (test code = See_Comment [ Automated message] 3173-2) The system [employer] generated this result transmitted ref erence range: 26 - 36 Seconds. The re ference range was not u sed to interpret this result as normal/abnor mal. Lab Interpretation (test Normal code = 23538-6) [facility] TylerFIBRINOGEN2022-10-17 08:22:37 Test Item Value Reference Range Interpretation Comments Fibrinogen (test code = 9012274527) 294 mg/dL 167-453 Lab Interpretation (test code = Normal 51840-5) [facility] WITH [id number] 08:15:01 Test Item Value Reference Range Interpretation [...] (test code = 52.9 fL 39-49.9 H 87444-6) RDW-CV (test code = 16.8 % 12-15.5 H 788-0) PLT (test code = See_Comment H [Automated 777-3) message] The sy stem which generated this result transmitted reference range : 166 - 358 10*3/ ?L. The reference r zoe was not used to interpret this result as normal/abnormal . MPV (test code = 8.3 fL 9.5-12.9 L 02514-1) NRBC/100 WBC (test See_Comment [Automat ed code = [id number]) message] The system which generated this result transmitted reference range : 0.0 - 10.0 /100 WBCs. The refer ence range was not u sed to interpret th is result as normal/abnormal . NRBC x10^3 (test code See_Comment [Auto mated = [id number]) message] The s ystem which generated this result transmitted reference range : 10*3/?L. The reference range was not used to interpret this result as normal/abnormal . GRAN MAT (NEUT) % 86.4 % (test code = 770-8) IMM GRAN % (test code 0.40 % = [id number]) LYMPH % (test code = 11.7 % 736-9) MONO % (test code = 1.1 % 5905-5) EOS % (test code = 0.0 % 713-8) BASO % (test code = 0.4 % 706-2) GRAN MAT x10^3(ANC) 6.36 10*3/uL 1.88-7.09 (test code = 0732551339) IMM GRAN x10^3 (test 0.03 10*3/uL 0-0.06 code = 5842516340) LYMPH x10^3 (test code 0.86 10*3/uL 1.32-3.29 L = 731-0) MONO x10^3 (test code 0.08 10*3/uL 0.33-0.92 L = 742-7) EOS x10^3 (test code = 0.03-0.39 L 711-2) BASO x10^3 (test code 0.03 10*3/uL 0.01-0.07 = 704-7) Lab Interpretation Abnormal (test code = 35647-6) [id number] 20:14:03 Test Item Value Reference Range Interpretation Comments VIT D 25OH (test code = 22 ng/mL 25-80 L 27142-5) LYNDSAY (test code = LYNDSAY) Deficiency: <20 ng/mLInsufficiency: 20-24 ng/mLOptimal: 25-80 ng/mL Lab Interpretation (test Abnormal code = 20358-1) [facility] (NA, K, CL, CO2, GLUCOSE, BUN, CREATININE, CA)2022-04-15 11:27:57 Test Item Value Reference Range Interpretation Comments NA (test code = 138 mmol/L 135-145 2716526616) K (test code = 3.9 mmol/L 3.5-5 3934078076) CL (test code = 106 mmol/L 98-108 5085572763) CO2 TOTAL (test code = 23 mmol/L 23-31 8651131619) AGAP (test code = 2-16 7824487277) BUN (test code = 10 mg/dL 7-23 3176683478) GLUCOSE (test code = 91 mg/dL 70-110 8143391628) CREATININE (test code = 0.65 mg/dL 0.5-1.04 9426534557) CALCIUM (test code = 8.1 mg/dL 8.6-10.6 L 0936114009) eGFR (test code = mL/min/1.73m2 8075915830) LYNDSAY (test code = LYNDSAY) Association of [...] tests). Lab Interpretation Abnormal (test code = 65289-1) [facility] - Transthoracic echo (TTE) 2022-04-14 22:07:33 Test Item Value Reference Range Interpretation Comments Height (test code = in 5515535893) Weight (test code = lbs 1436089414) Systolic BP (test code = mmHg 7506765445) Diastolic BP (test code mmHg = 6432011270) Heart Rate (test code = bpm 5852174568) BSA (test code = 1.94 m2 4003080599) TASV (test code = 15.5 cm/s 1088113278) LVIDD (test code = 6.00 cm 7795986099) Left Ventricular End 183.0 mL Diastolic Volume by Teichholz Method (test code = 6794291) IVS (test code = 1.09 cm 9166351682) Interventricular Septum 1.09 cm Diastolic Thickness by 2D (test code = 0708072) LVPWD (test code = 0.94 cm 6611168852) PW (test code = 0.94 cm 0.6-1.8 1108366134) EF(Teich) (test code = 40.30 % 0454463623) LVIDS (test code = 4.80 cm 0751200602) Left Ventricular End 109.2 mL Systolic Volume by Teichholz Method (test code = 1282610) FS (test code = 20 % 6613560439) EF - 2D (test code = 40.30 % 40866957) LVOT diameter (test code 2.05 cm = 0528098951) LVOT area (test code = 3.30 cm2 2470011807) Ao root diam (test code 3.10 cm = 4977656370) Aortic root (test code = 3.1 cm 1289426278) Ao root annulus (test 3.1 cm code = 6373321534) LA size (test code = 4.2 cm 3781018050) LAV(MOD-sp4) (test code 64.90 mL = 9521581702) MV Peak A Evette (test code 115.7 cm/s = 7442220557) E wave decelartion time 0.15 s (test code = 3718415888) MV Peak E Evette (test code 106.2 cm/s = 8121237099) E/A ratio (test code = ratio 1397872328) LVOT stroke volume (test 48.30 cm3 code = 7649575079) LVOT peak evette (test code 78.4 cm/s = 6829346809) LVOT mn grad (test code mmHg = 9393285142) AV LVOT peak gradient mmHg (test code = 2425412938) LVOT peak VTI (test code 14.7 cm = 9234251935) LV V1 mean (test code = 51.40 cm/s 5010085058) Ao peak evette (test code = 154.7 cm/s 6942622951) AV area peak evette (test 1.7 cm2 code = 2810961485) Ao max PG (test code = 9.60 mm[Hg] 4369579523) AV peak gradient (test mmHg code = 8468622344) AV regurgitation 257.3 ms pressure 1/2 time (test code = 2607231258) AI dec slope (test code 498.10 cm/s2 = 4619866628) AI max evette (test code = 437.60 cm/s 9711510707) AI max PG (test code = 77.80 mm[Hg] 3769264928) Tapse (test code = 2.19 cm 9612268634) LA Volume Index (BP) 32.0 mL/m2 (test code = 1304900744) LA volume (BP) (test 62.1 mL code = 2840975286) LAV(MOD-sp2) (test code 52.70 mL = 3450783880) A4C EF (test code = 44.80 % 4918122257) EF(sp4-el) (test code = 45.20 % 3096943329) SV(MOD-sp4) (test code = 71.20 mL 9596260595) SV(sp4-el) (test code = 73.90 mL 5544619874) LV Diastolic Volume (BP) 146.3 mL (test code = 0827179059) A2C EF (test code = 52.00 % 3681763719) EF(MOD-bp) (test code = 46.70 % 2475852727) EF(sp2-el) (test code = 52.40 % 3976555753) LV Systolic Volume (BP) 77.9 mL (test code = 9085739665) SV(MOD-bp) (test code = 68.40 mL 4405425502) SV(MOD-sp2) (test code = 69.20 mL 0938422391) EF (test code = 6605213739) Left Ventricular Stroke 68.4 mL Volume by 2-D Biplane-MOD (test code = 0172579) Radiology Study observation (narrative) (test code = 09549-6) LYNDSAY (test code = LYNDSAY) ?Left?Ventricle: Left [...] and saline contrast was performed. [facility] (LEVETIRACETAM)2022-04-14 16:48:36 Test Item Value Reference Range Interpretation Comments KEJUNAIDRA (test code = 12-46 L 5913189510) LYNDSAY (test code = LYNDSAY) Therapeutic range: 12-46 ?g/mL ? ?Toxic: Not well established.Test developed and characteristics determined by [facility] Laboratory Services. Lab Interpretation Abnormal (test code = 72195-2) [facility] Metabolic Panel (Na, K, Cl, CO2, Glucose, BUN, Creatinine, Ca)2022-04-14 10:50:11 Test Item Value Reference Range Interpretation Comments NA (test code = 136 mmol/L 135-145 3158818595) K (test code = 3.8 mmol/L 3.5-5 3351792076) CL (test code = 105 mmol/L 98-108 3866586125) CO2 TOTAL (test code = 25 mmol/L 23-31 7262461369) AGAP (test code = 2-16 1794137313) BUN (test code = 9 mg/dL 7-23 1817881801) GLUCOSE (test code = 101 mg/dL 70-110 9828010500) CREATININE (test code = 0.66 mg/dL 0.5-1.04 1600013453) CALCIUM (test code = 8.1 mg/dL 8.6-10.6 L 7491956228) eGFR (test code = mL/min/1.73m2 1804232302) LYNDSAY (test code = LYNDSAY) Association of [...] tests). Lab Interpretation Abnormal (test code = 89328-4) [facility] TylerMagensium, [id number] 10:50:11 Test Item Value Reference Range Interpretation Comments MAGNESIUM (test code = 0783165180) 1.9 mg/dL 1.7-2.4 Lab Interpretation (test code = Normal 22269-6) [facility] TylerThyroid Stimulating [id number] 22:21:44 Test Item Value Reference Range Interpretation Comments TSH (test code = See_Comment Biotin has been 4223443085) reported to cau se a negative bias, interpret resul ts relative to autumn garcia's use of biotin. [Automated mess age] The system [employer] generated this result transmitted ref erence range: 0.45 - 4 .70 mIU/L. The refe rence range was not u sed to interpret this result as normal/abnor mal. Lab Interpretation (test Normal code = 68502-2) [facility] TylerGLYCOSYLATED HEMOGLOBIN (A1C)2022-04-13 21:53:43 Test Item Value Reference Range Interpretation Comments HGB A1C (test code = 5.8 % 4-5.7 H 4548-4) LYNDSAY (test code = LYNDSAY) Reference RangesNormal: <5.7%Prediabetes: 5.7 - 6.4%Diabetes: > 6.5% Lab Interpretation (test Abnormal code = 50048-8) [facility] TylerFASTING LIPID PANEL (66695)(TOTAL CHOLESTEROL, TRIGLYCERIDES, HDL)2022-04-13 21:34:53 Test Item Value Reference Range Interpretation Comments CHOL (test code = 201 mg/dL 120-200 H 9146072591) HDL (test code = 56 mg/dL See_Comment [Automated message] 8080856586) The system [employer] generated this result transmit sherice reference range : >=50. The refer ence range was not u sed to interpret th is result as normal/abnormal . HDLC RATIO (test code = See_Comment [Au tomated message] 7283869206) The system [employer] generated this result transmit sherice reference range : <=4.5. The refe rence range was not u sed to interpret th is result as normal/abnormal . TRIG (test code = 355 mg/dL 30-170 H 4577319358) LDL CHOL (test code = 74 mg/dL See_Comment [Auto mated message] 66251-7) The system [employer] generated this result transmit sherice reference range : <=160. The refe rence range was not u sed to interpret th is result as normal/abnormal . VLDL (test code = 71 mg/dL 5-60 H 1569268597) Lab Interpretation (test Abnormal code = 47503-6) [facility] TylerTroponin I - Code [id number] 18:46:27 Test Item Value Reference Interpretation Comments Range TROPONIN I (test 0.013 ng/mL See_Comment [Automated code = 2673243772) message] The system which generated this result [...] biotin. Lab Interpretation Normal (test code = 34260-6) [facility] (NA, K, CL, CO2, Glucose, BUN, Creatinine, CA) - Code [id number] 18:35:07 Test Item Value Reference Range Interpretation Comments NA (test code = 136 mmol/L 135-145 1138057925) K (test code = 4.3 mmol/L 3.5-5 6299570175) CL (test code = 105 mmol/L 98-108 9967847793) CO2 TOTAL (test code = 27 mmol/L 23-31 9559286120) AGAP (test code = 2-16 2069744263) BUN (test code = 8 mg/dL 7-23 3998726337) GLUCOSE (test code = 130 mg/dL 70-110 H 6972159441) CREATININE (test code = 0.75 mg/dL 0.5-1.04 4944900050) CALCIUM (test code = 8.5 mg/dL 8.6-10.6 L 1897090354) eGFR (test code = mL/min/1.73m2 3733668870) LYNDSAY (test code = LYNDSAY) Association of [...] tests). Lab Interpretation Abnormal (test code = 57667-8) [facility] TyleraPTT - Code [id number] 18:32:46 Test Item Value Reference Range Interpretation Comments APTT Patient (test See_Comment [Automat ed code = 3173-2) message] The system which generated this result transmitted reference range : 23 - 38 Seconds . The reference range was not used to interpr et this result as normal/abnormal . LYNDSAY (test code = LYNDSAY) The [facility] patient population mean normal value for aPTT is 30 seconds. Lab Interpretation Normal (test code = 34513-1) [facility] TylerProthrombin Time / INR - Code [id number] 18:30:45 Test Item Value Reference Range Interpretation Comments PROTIME PATIENT (test See_Comment [Auto mated message] code = 5964-2) The system [employer] generated this result transmitted ref erence range: 12.0 - 1 4.7 Seconds. The re ference range was not u sed to interpret this result as normal/abnor mal. INR (test code = 6301-6) Nor mal INR <1.1; Warfarin Therap eutic range 2.0 to 3. 0 or 2.5 to 3.5, dep ending upon the indica tions. Lab Interpretation (test Normal code = 53635-2) [facility] TylerCBC without Diff - Code [id number] 18:23:07 Test Item Value Reference Range Interpretation Comments WBC (test code = 6690-2) See_Comment [A utomated message] The system [employer] generated this result transmit sherice reference range : 4.30 - 11.10 10*3/?L. The reference range was not used to interpret this result as normal/abnormal . RBC (test code = 789-8) See_Comment [Au tomated message] The system [employer] generated this result transmit sherice reference range [...] See_Comment H [Au tomated message] The system [employer] generated this result transmit sherice reference range : 166 - 358 10*3/?L. The reference range was not used to interpret this result as normal/abnormal . MPV (test code = 8.1 fL 9.5-12.9 L 03833-5) RDW-CV (test code = 16.1 % 12-15.5 H 788-0) RDW-SD (test code = 49.2 fL 39-49.9 00999-6) NRBC x10^3 (test code = See_Comment [Au tomated message] 1117969481) The system [facility] h generated this result transmit sherice reference range : 10*3/?L. The reference range was not used to interpret this result as normal/abnormal . NRBC/100 WBC (test code See_Comment [Au tomated message] = 6435862854) The system [facility] generated this result transmit sherice reference range : 0.0 - 10.0 /100 WBC s. The reference r zoe was not used to interpret this result as normal/abnormal . IPF % (test code = 4765860921) Lab Interpretation (test Abnormal code = 69772-2) [id number] 21:06[facility]40 Test Item Value Reference Interpretation Comments Range TROPONIN I (test 0.005 ng/mL See_Comment [Automated code = 0587237885) message] The system which generated this result [...] biotin. Lab Interpretation Normal (test code = 83344-9) [facility]. METABOLIC PANEL (09556)2021-11-23 20:55:42 Test Item Value Reference Range Interpretation Comments NA (test code = 137 mmol/L 135-145 7894793713) K (test code = 4.3 mmol/L 3.5-5.0 1661672851) CL (test code = 104 mmol/L 98-108 1316599557) CO2 TOTAL (test code = 22 mmol/L 23-31 L 8412763730) AGAP (test code = 2-16 9041041941) BUN (test code = 15 mg/dL 7-23 3354888563) GLUCOSE (test code = 114 mg/dL 70-110 H 7651056390) CREATININE (test code = 0.68 mg/dL 0.50-1.04 6623338717) TOTAL BILI (test code = 0.5 mg/dL 0.1-1.5 7326008898) CALCIUM (test code = 9.1 mg/dL 8.6-10.6 4273861940) T PROTEIN (test code = 7.3 g/dL 6.3-8.2 9875571318) ALBUMIN (test code = 4.4 g/dL 3.5-5.0 7718897441) ALK PHOS (test code = 243 U/L 34-122 H 9520476226) ALTv (test code = 24 U/L 5-35 1742-6) AST(SGOT) (test code = 30 U/L 13-40 3351097672) eGFR (test code = mL/min/1.73m2 2444365394) LYNDSAY (test code = LYNDSAY) Association of [...] tests). Lab Interpretation Abnormal (test code = 42858-2) [facility]LIPASE2022-[facility] 20:55:22 Test Item Value Reference Range Interpretation Comments LIPASE (test code = 2105706645) 96 U/L 0-220 Lab Interpretation (test code = Normal 05393-5) [facility] TylerPOCT [id number] 20:46:00 Test Item Value Reference Range Interpretation Comments POCT PREG (test code = 1605) negative On board controls acceptable with present C Line (test code = 3574) POCT PREG LOT # (test code = 3575) [id number] POCT PREG TEST DATE (test 04/18/2023 code = 3576) Lab Interpretation (test code = Normal 78170-2) [facility] TylerCBC WITH [id number] 20:40:38 Test Item Value Reference Range Interpretation Comments WBC (test code = See_Comment [Automated 5259-2) message] The sy stem which generated this result transmitted reference range : 4.30 - 11.10 10*3/?L. The reference range was not used to interpret this result as normal/abnormal . RBC (test code = See_Comment [Automated 969-8) message] The sy stem which generated this [...] (test code = 53.7 fL 39.0-49.9 H 60096-9) RDW-CV (test code = 17.2 % 12.0-15.5 H 788-0) PLT (test code = See_Comment H [Automated 777-3) message] The sy stem which generated this result transmitted reference range : 166 - 358 10*3/ ?L. The reference r zoe was not used to interpret this result as normal/abnormal . MPV (test code = 8.5 fL 9.5-12.9 L 50783-5) NRBC/100 WBC (test See_Comment [Automat ed code = 9441113091) message] The system which generated this result transmitted reference range : 0.0 - 10.0 /100 WBCs. The refer ence range was not u sed to interpret th is result as normal/abnormal . NRBC x10^3 (test code <0.01 See_Comment [Auto mated = 3060930983) message] The s ystem which generated this result transmitted reference range : 10*3/?L. The reference range was not used to interpret this result as normal/abnormal . GRAN MAT (NEUT) % 53.7 % (test code = 770-8) IMM GRAN % (test code 0.90 % = 8835071784) LYMPH % (test code = 32.6 % 736-9) MONO % (test code = 10.1 % 5905-5) EOS % (test code = 1.5 % 713-8) BASO % (test code = 1.2 % 706-2) GRAN MAT x10^3(ANC) 4.98 10*3/uL 1.88-7.09 (test code = 2073941811) IMM GRAN x10^3 (test 0.08 10*3/uL 0.00-0.06 H code = 4293020151) LYMPH x10^3 (test code 3.02 10*3/uL 1.32-3.29 = 731-0) MONO x10^3 (test code 0.94 10*3/uL 0.33-0.92 H = 742-7) EOS x10^3 (test code = 0.14 10*3/uL 0.03-0.39 711-2) BASO x10^3 (test code 0.11 10*3/uL 0.01-0.07 H = 704-7) Lab Interpretation Abnormal (test code = 58448-9) [facility] TylerPO[facility] GLUCOSE (AUTOMATED)2021-11-23 20:17:33 Test Item Value Reference Range Interpretation Comments POCT GLU (test code = 111 mg/dL 70-110 H Notifi ed Provider 1636024027) Lab Interpretation (test Abnormal code = 64259-0) [facility] TylerPAP TEST, THINPREP, [id number] 00:00:00 Test Item Value Reference Range Interpretation Comments SOURCE: (test code = Endocervical 8001) SLIDES: (test code = 1 8011) LMP: (test code = 8021) 06/03/2021 SPECIMEN ADEQUACY: (test (NOTE) code = 86317) INTERPRETATION: (test ASCUS/EPITH. code = 24946) ABNORMALITY; SEE BELOW DOCUMENT CONTROLLER: (test Anusha code = 8101) CHANA Sepulveda(ASCP)IAC PATHOLOGIST Nahid Russell, INTERPRETATION BY: (test M.D. code = 8122) LOCATION: (test code = (NOTE) 56855) CPT: (test code = 8140) (NOTE) PAP TEST, THINPREP, [id number] 00:00:00 Test Item Value Reference Range Interpretation Comments SOURCE: (test code = Endocervical 8001) SLIDES: (test code = 1 8011) LMP: (test code = 8021) 06/03/2021 SPECIMEN ADEQUACY: (test (NOTE) code = 15951) INTERPRETATION: (test ASCUS/EPITH. code = 95856) ABNORMALITY; SEE BELOW DOCUMENT CONTROLLER: (test Anusha code = 8101) CHANA Sepulveda(ASCP)IAC PATHOLOGIST Nahid Russell, INTERPRETATION BY: (test M.D. code = 8122) LOCATION: (test code = (NOTE) 01795) CPT: (test code = 8140) (NOTE) PAP TEST, THINPREP, [id number] 00:00:00 Test Item Value Reference Range Interpretation Comments SOURCE: (test code = Endocervical 8001) SLIDES: (test code = 1 8011) LMP: (test code = 8021) 06/03/2021 SPECIMEN ADEQUACY: (test (NOTE) code = 93961) INTERPRETATION: (test ASCUS/EPITH. code = 16307) ABNORMALITY; SEE BELOW DOCUMENT CONTROLLER: (test Anusha code = 8101) CHANA Sepulveda(ASCP)IAC PATHOLOGIST Nahid Russell, INTERPRETATION BY: (test M.D. code = 8122) LOCATION: (test code = (NOTE) 89361) CPT: (test code = 8140) (NOTE) PAP TEST, THINPREP, [id number] 00:00:00 Test Item Value Reference Range Interpretation Comments SOURCE: (test code = Endocervical 8001) SLIDES: (test code = 1 8011) LMP: (test code = 8021) 06/03/2021 SPECIMEN ADEQUACY: (test (NOTE) code = 18012) INTERPRETATION: (test ASCUS/EPITH. code = 00996) ABNORMALITY; SEE BELOW DOCUMENT CONTROLLER: (test Anusha code = 8101) CHANA Sepulveda(ASCP)[facility] PATHOLOGIST Nahid Russell, INTERPRETATION BY: (test M.D. code = 8122) LOCATION: (test code = (NOTE) 38111) CPT: (test code = 8140) (NOTE) HPV HIGH RISK WITH GENOTYPE, [id number] 00:00:00 Test Item Value Reference Range Interpretation Comments HPV HIGH RISK INTERP (test code = POSITIVE 28883) HPV 16 (test code = 90863) POSITIVE HPV 18 (test code = 97674) NEGATIVE HPV, HR, OTHER GENOTYPES (test code POSITIVE = 20623) HPV HIGH RISK WITH GENOTYPE, [id number] 00:00:00 Test Item Value Reference Range Interpretation Comments HPV HIGH RISK INTERP (test code = POSITIVE 99679) HPV 16 (test code = 78839) POSITIVE HPV 18 (test code = 43021) NEGATIVE HPV, HR, OTHER GENOTYPES (test code POSITIVE = 83322) HPV HIGH RISK WITH GENOTYPE, [id number] 00:00:00 Test Item Value Reference Range Interpretation Comments HPV HIGH RISK INTERP (test code = POSITIVE 36670) HPV 16 (test code = 21949) POSITIVE HPV 18 (test code = 81296) NEGATIVE HPV, HR, OTHER GENOTYPES (test code POSITIVE = 51238) HPV HIGH RISK WITH GENOTYPE, [id number] 00:00:00 Test Item Value Reference Range Interpretation Comments HPV HIGH RISK INTERP (test code = POSITIVE 42201) HPV 16 (test code = 91573) POSITIVE HPV 18 (test code = 47229) NEGATIVE HPV, HR, OTHER GENOTYPES (test code POSITIVE = 31555) [id number] 03:22:48 Test Item Value Reference Range Interpretation Comments APPEARANCE (test code = Hazy Clear A 0327118900) COLOR (test code = Yellow Yellow 8698643302) PH (test code = 4.8-8.0 7905784528) SP GRAVITY (test code = 1.003-1.030 6597217134) GLU U QUAL (test code = Normal Normal 7998903373) BLOOD (test code = Negative Negative Interfere nce from 6444719425) ascorbic acid m ay cause false neg ative results. KETONES (test code = 5 mg/dL Negative A 0657385452) PROTEIN (test code = Negative Negative 2887-8) UROBILIN (test code = 4.0 mg/dL Normal A 6719326443) BILIRUBIN (test code = Negative Negative 2110506045) NITRITE (test code = Negative Negative 6167681811) LEUK GRUPO (test code = Negative Negative 6609357823) RBC/HPF (test code = See_Comment [Autom ated message] 4423660539) The system [employer] generated this result transmitted ref erence range: 0 - 3 HP F. The reference range was not used to int erpret this result as normal/abnormal . WBC/HPF (test code = <1 See_Comment [Autom ated message] 5761394850) The system [employer] generated this result transmitted ref erence range: 0 - 5 HP F. The reference range was not used to int erpret this result as normal/abnormal . BACTERIA (test code = Few Negative A 4872487032) SQ EPITH (test code = HPF 2759623765) Lab Interpretation Abnormal (test code = 90456-2) [facility]INAL[facility]IS2021[facility]-29 03:22:48 Test Item Value Reference Range Interpretation Comments APPEARANCE (test code = Hazy Clear A 7996197709) COLOR (test code = Yellow Yellow 9619629772) PH (test code = 4.8-8.0 5656569967) SP GRAVITY (test code = 1.003-1.030 2949824616) GLU U QUAL (test code = Normal Normal 5201674253) BLOOD (test code = Negative Negative 4367038357) KETONES (test code = 5 mg/dL Negative A 3423456834) PROTEIN (test code = Negative Negative 2887-8) UROBILIN (test code = 4.0 mg/dL Normal A 7969123388) BILIRUBIN (test code = Negative Negative 7481939786) NITRITE (test code = Negative Negative 2578985700) LEUK GRUPO (test code = Negative Negative 1674738995) RBC/HPF (test code = See_Comment [Autom ated message] 1266146018) The system [employer] generated this result transmit sherice reference range : 0 - 3 HPF. The refe rence range was not u sed to interpret th is result as normal/abnormal . WBC/HPF (test code = <1 See_Comment [Autom ated message] 9888656458) The system [employer] generated this result transmit sherice reference range : 0 - 5 HPF. The refe rence range was not u sed to interpret th is result as normal/abnormal . BACTERIA (test code = Few Negative A 0079521348) SQ EPITH (test code = HPF 4095926436) Lab Interpretation (test Abnormal code = 19640-4) [facility]FREDAMCLEOD [facility] D[facility]LINGTONINDIRA [id number] 02:45:00 Test Item Value Reference Interpretation Comments Range TROPONIN I (test 0.002 ng/mL See_Comment [Automated code = 8498300416) message] The system which generated this result [...] biotin. Lab Interpretation Normal (test code = 33819-6) [facility] TylerTROPONIN [id number] 02:45:00 Test Item Value Reference Range Interpretation Comments TROPONIN I (test code = 0.002 ng/mL See_Comment [Au tomated 6937047134) message] The sy stem which generated this result transmitted reference range : <=0.034. The reference range was not used to interpret this result as normal/abnormal . LYNDSAY (test code = LYNDSAY) Lab Interpretation Normal (test code = 11210-9) [facility] TylerN-TERMINAL [id number] 02:41:57 Test Item Value Reference Range Interpretation Comments NT-proBNP (test code 169 pg/mL See_Comment H [Autom ated = 2262330401) message] The system which generated this result transmitted reference range : <=125. The reference range was not used to interpret this result as normal/abnormal . LYNDSAY (test code = LYNDSAY) Biotin has been reported to cause a negative bias, interpret results relative to patient's use of biotin. Lab Interpretation Abnormal (test code = 30585-6) [facility] TylerN-TERMINAL [id number] 02:41:57 Test Item Value Reference Range Interpretation Comments NT-proBNP (test code = 169 pg/mL See_Comment H [Aut omated message] 4206727835) The system [employer] h generated this result transmit sherice reference range : <=125. The refe rence range was not u sed to interpret th is result as normal/abnormal . LYNDSAY (test code = LYNDSAY) Lab Interpretation (test Abnormal code = 18356-1) [facility]. METABOLIC PANEL (26684)2021-03-17 02:09:13 Test Item Value Reference Range Interpretation Comments NA (test code = 137 mmol/L 135-145 2000342069) K (test code = 4.2 mmol/L 3.5-5.0 3334807152) CL (test code = 102 mmol/L 98-108 4865004029) CO2 TOTAL (test code = 25 mmol/L 23-31 0780809664) AGAP (test code = 2-16 1368397897) BUN (test code = 18 mg/dL 7-23 3337333441) GLUCOSE (test code = 144 mg/dL 70-110 H 3202021641) CREATININE (test code = 0.77 mg/dL 0.50-1.04 8164005402) TOTAL BILI (test code = 0.4 mg/dL 0.1-1.4 6218841799) CALCIUM (test code = 8.9 mg/dL 8.6-10.6 [id number]) T PROTEIN (test code = 6.8 g/dL 6.3-8.2 [id number]) ALBUMIN (test code = 3.9 g/dL 3.5-5.0 3177881849) ALK PHOS (test code = 84 U/L 34-122 8842287166) ALTv (test code = 13 U/L 5-35 1742-6) AST(SGOT) (test code = 17 U/L 13-40 [id number]) eGFR (test code = mL/min/1.73m2 2249625814) LYNDSAY (test code = LYNDSAY) Association of [...] tests). Lab Interpretation Abnormal (test code = 65102-8) [facility]. METABOLIC PANEL (14000)2021-03-17 02:09:13 Test Item Value Reference Range Interpretation Comments NA (test code = 3134916313) 137 mmol/L 135-145 K (test code = 0338440285) 4.2 mmol/L 3.5-5.0 CL (test code = 2585662985) 102 mmol/L 98-108 CO2 TOTAL (test code = 1443102849) 25 mmol/L 23-31 AGAP (test code = 4454093548) 2-16 BUN (test code = 4223376143) 18 mg/dL 7-23 GLUCOSE (test code = 0126867773) 144 mg/dL 70-110 H CREATININE (test code = 0.77 mg/dL 0.50-1.04 4667127540) TOTAL BILI (test code = 0.4 mg/dL 0.1-1.0 7885838019) CALCIUM (test code = 7316637751) 8.9 mg/dL 8.6-10.6 T PROTEIN (test code = 6813211328) 6.8 g/dL 6.3-8.2 ALBUMIN (test code = 4398102407) 3.9 g/dL 3.5-5.0 ALK PHOS (test code = 9670113657) 84 U/L 34-122 ALTv (test code = 1742-6) 13 U/L 5-35 AST(SGOT) (test code = 0538485871) 17 U/L 13-40 eGFR (test code = 7739635287) mL/min/1.73m2 LYNDSAY (test code = LYNDSAY) Lab Interpretation (test code = Abnormal 02415-8) [facility] WITH [id number] 01:56:33 Test Item Value Reference Range Interpretation [...] (test code = 55.5 fL 39.0-49.9 H 45606-1) RDW-CV (test code = 18.9 % 12.0-15.5 H 788-0) PLT (test code = See_Comment H [Automated 777-3) message] The sy stem which generated this result transmitted reference range : 166 - 358 10*3/ ?L. The reference r zoe was not used to interpret this result as normal/abnormal . MPV (test code = 8.2 fL 9.5-12.9 L 22518-6) NRBC/100 WBC (test See_Comment [Automat ed code = 4884755785) message] The system which generated this result transmitted reference range : 0.0 - 10.0 /100 WBCs. The refer ence range was not u sed to interpret th is result as normal/abnormal . NRBC x10^3 (test code <0.01 See_Comment [Auto mated = 0575797561) message] The s ystem which generated this result transmitted reference range : 10*3/?L. The reference range was not used to interpret this result as normal/abnormal . GRAN MAT (NEUT) % 61.7 % (test code = 770-8) IMM GRAN % (test code 0.80 % = 0286812833) LYMPH % (test code = 28.5 % 736-9) MONO % (test code = 6.3 % 5905-5) EOS % (test code = 1.8 % 713-8) BASO % (test code = 0.9 % 706-2) GRAN MAT x10^3(ANC) 7.31 10*3/uL 1.88-7.09 H (test code = 4045368283) IMM GRAN x10^3 (test 0.09 10*3/uL 0.00-0.06 H code = 7045984669) LYMPH x10^3 (test code 3.38 10*3/uL 1.32-3.29 H = 731-0) MONO x10^3 (test code 0.75 10*3/uL 0.33-0.92 = 742-7) EOS x10^3 (test code = 0.21 10*3/uL 0.03-0.39 711-2) BASO x10^3 (test code 0.11 10*3/uL 0.01-0.07 H = 704-7) Lab Interpretation Abnormal (test code = 48828-3) [facility] WITH [id number] 01:56:33 Test Item Value Reference Range Interpretation [...] (test code = 55.5 fL 39.0-49.9 H 06564-9) RDW-CV (test code = 18.9 % 12.0-15.5 H 788-0) PLT (test code = See_Comment H [Automated 777-3) message] The sy stem which generated this result transmitted reference range : 166 - 358 10*3/ ?L. The reference r zoe was not used to interpret this result as normal/abnormal . MPV (test code = 8.2 fL 9.5-12.9 L 11849-7) NRBC/100 WBC (test See_Comment [Automat ed code = 2722723273) message] The system which generated this result transmitted reference range : 0.0 - 10.0 /100 WBCs. The refer ence range was not u sed to interpret th is result as normal/abnormal . NRBC x10^3 (test code <0.01 See_Comment [Auto mated = 0025846679) message] The s ystem which generated this result transmitted reference range : 10*3/?L. The reference range was not used to interpret this result as normal/abnormal . GRAN MAT (NEUT) % 61.7 % (test code = 770-8) IMM GRAN % (test code 0.80 % = 4905555360) LYMPH % (test code = 28.5 % 736-9) MONO % (test code = 6.3 % 5905-5) EOS % (test code = 1.8 % 713-8) BASO % (test code = 0.9 % 706-2) GRAN MAT x10^3(ANC) 7.31 10*3/uL 1.88-7.09 H (test code = 1751519327) IMM GRAN x10^3 (test 0.09 10*3/uL 0.00-0.06 H code = 8146476067) LYMPH x10^3 (test code 3.38 10*3/uL 1.32-3.29 H = 731-0) MONO x10^3 (test code 0.75 10*3/uL 0.33-0.92 = 742-7) EOS x10^3 (test code = 0.21 10*3/uL 0.03-0.39 711-2) BASO x10^3 (test code 0.11 10*3/uL 0.01-0.07 H = 704-7) Lab Interpretation Abnormal (test code = 60164-4) [facility]-19 (ID NOW RAPID TESTING)2021-03-17 01:38:12 Test Item Value Reference Range Interpretation Comments SARS-CoV-2 Rapid ID NOW Not Detected Not Detected (test code = 17815-6) LYNDSAY (test code = LYNDSAY) ID NOW COVID-19 Assay is an isothermal nucleic acid amplification test intended for the qualitative detection of nucleic acid from SARS-CoV-2 viral RNA in nasopharyngeal (HOME DELIVERY DRIVER) specimens. It is used under Emergency Use [...] indicated. Lab Interpretation Normal (test code = 61297-3) [facility]-19 (ID NOW RAPID TESTING)2021-03-17 01:38:12 Test Item Value Reference Range Interpretation Comments SARS-CoV-2 Rapid ID NOW (test Not Detected Not Detected code = 87690-7) LYNDSAY (test code = LYNDSAY) Lab Interpretation (test code = Normal 06721-1) [facility]-19 (ID NOW RAPID TESTING)2021-02-19 17:42:45 Test Item Value Reference Range Interpretation Comments SARS-CoV-2 Rapid ID NOW Not Detected Not Detected (test code = 84907-6) LYNDSAY (test code = LYNDSAY) ID NOW COVID-19 Assay is an isothermal nucleic acid amplification test intended for the qualitative detection of nucleic acid from SARS-CoV-2 viral RNA in nasopharyngeal (HOME DELIVERY DRIVER) specimens. It is used under Emergency Use [...] indicated. Lab Interpretation Normal (test code = 33514-9) [facility] [id number] 17:24:55Thickening of the gastric antrum and duodenal bulb could be fromunderdistention, the differential would include sequela of peptic ulcerdisease. No findings of ulcer perforation. Otherwise, no acute intra- abdominal or pelvic abnormality. Stable thickening and nodularity of the left adrenal gland. RL: 8722 Patient name: EUSEBIA MCCABE WHEATLANDDOB: 1970 51 years EXAMINATION: CT ABDOMEN PELVIS [...] nodularity of the left adrenal gland.RL: 8722 [facility] 17:03:40 Test Item Value Reference Range Interpretation Comments APPEARANCE (test code = Hazy Clear A 4503799857) COLOR (test code = Mabel Yellow A 6866063626) PH (test code = 4.8-8.0 6133088371) SP GRAVITY (test code = 1.003-1.030 H 1239696855) GLU U QUAL (test code = Normal Normal 2874535509) BLOOD (test code = Negative Negative 6442905737) KETONES (test code = 5 mg/dL Negative A 1583213236) PROTEIN (test code = 30 mg/dL Negative A 2887-8) UROBILIN (test code = 4.0 mg/dL Normal A 9404653949) BILIRUBIN (test code = 4 mg/dL Negative A 9784609296) NITRITE (test code = Negative Negative 6434049419) LEUK GRUPO (test code = Negative Negative 5999674246) RBC/HPF (test code = See_Comment H [Autom ated message] 5326420268) The system [employer] generated this result transmit sherice reference range : 0 - 3 HPF. The refe rence range was not u sed to interpret th is result as normal/abnormal . WBC/HPF (test code = See_Comment H [Autom ated message] 5316562556) The system [employer] generated this result transmit sherice reference range : 0 - 5 HPF. The refe rence range was not u sed to interpret th is result as normal/abnormal . BACTERIA (test code = Few Negative A 2642013093) MUCOUS (test code = Moderate Negative LPF A 1199448102) SQ EPITH (test code = HPF 8048639601) CA OXALATE (test code = See_Comment H [Au tomated message] 5307048403) The system [employer] generated this result transmit sherice reference range : <=1 HPF. The refere nce range was not u sed to interpret th is result as normal/abnormal . Ictotest (test code = Negative 4308698439) Lab Interpretation (test Abnormal code = 16313-7) [facility] [id number] 16:34:55 Test Item Value Reference Range Interpretation Comments NA (test code = 139 mmol/L 135-145 0571232627) K (test code = 4.3 mmol/L 3.5-5.0 3341170542) CL (test code = 105 mmol/L 98-108 6312602280) CO2 TOTAL (test code 26 mmol/L 23-31 = 0730208688) AGAP (test code = 2-16 4197136393) BUN (test code = 11 mg/dL 7-23 0529128787) GLUCOSE (test code = 95 mg/dL 70-110 9674782480) CREATININE (test code 0.70 mg/dL 0.50-1.04 = 3800920071) TOTAL BILI (test code 0.6 mg/dL 0.1-1.1 = 9885017471) CALCIUM (test code = 8.9 mg/dL 8.6-10.6 0085842163) T PROTEIN (test code 7.7 g/dL 6.3-8.2 = 7385450907) ALBUMIN (test code = 4.1 g/dL 3.5-5.0 3950003028) ALK PHOS (test code = 79 U/L 34-122 9917666423) ALTv (test code = 10 U/L 5-35 2-6) AST(SGOT) (test code 22 U/L 13-40 = 2951784394) eGFR (test code = mL/min/1.73m2 9226553433) LYNDSAY (test code = LYNDSAY) Association of [...] or abnormalities in imaging tests). [facility], [id number] 16:34:14 Test Item Value Reference Range Interpretation Comments LIPASE (test code = 1274888899) 45 U/L 0-220 Lab Interpretation (test code = Normal 08585-6) [facility] with [id number] 16:21:12 Test Item Value Reference Range Interpretation [...] (test code = 54.4 fL 39.0-49.9 H 31129-7) RDW-CV (test code = 18.3 % 12.0-15.5 H 788-0) PLT (test code = See_Comment H [Automated 777-3) message] The sy stem which generated this result transmitted reference range : 166 - 358 10*3/ ?L. The reference r zoe was not used to interpret this result as normal/abnormal . MPV (test code = 8.5 fL 9.5-12.9 L 31128-9) NRBC/100 WBC (test See_Comment [Automat ed code = 6432546425) message] The system which generated this result transmitted reference range : 0.0 - 10.0 /100 WBCs. The refer ence range was not u sed to interpret th is result as normal/abnormal . NRBC x10^3 (test code <0.01 See_Comment [Auto mated = 7303608061) message] The s ystem which generated this result transmitted reference range : 10*3/?L. The reference range was not used to interpret this result as normal/abnormal . GRAN MAT (NEUT) % 78.3 % (test code = 770-8) IMM GRAN % (test code 0.40 % = 6302749406) LYMPH % (test code = 15.4 % 736-9) MONO % (test code = 4.8 % 5905-5) EOS % (test code = 0.1 % 713-8) BASO % (test code = 1.0 % 706-2) GRAN MAT x10^3(ANC) 7.15 10*3/uL 1.88-7.09 H (test code = 1218984012) IMM GRAN x10^3 (test 0.04 10*3/uL 0.00-0.06 code = 1083904515) LYMPH x10^3 (test code 1.41 10*3/uL 1.32-3.29 = 731-0) MONO x10^3 (test code 0.44 10*3/uL 0.33-0.92 = 742-7) EOS x10^3 (test code = <0.03 0.03-0.39 L 711-2) BASO x10^3 (test code 0.09 10*3/uL 0.01-0.07 H = 704-7) Lab Interpretation Abnormal (test code = 41719-1) [facility]
[2023-03-29] MEDS ORDERED: MORPHINE 4 MG/ML SYR ONE (12:34)
[2023-03-29] MEDS ORDERED: ONDANSETRON 4 MG/2 ML VIAL ONE (12:34)
[2023-03-29 12:48] LABS: Protime INR 0.97
[2023-03-29 12:49] LABS: Absolute Lymphocytes (CBC) 2.3 K/uL (0.7-4.9); Hematocrit 42.7 % (36.0-45.0); Lymphocytes % 37.5 % (15.3-44.8); MCV 86.7 fL (80-100); MPV 6.3 fL (7.6-11.3); Platelets 464 thou/uL (152-406); RBC Red Blood Cell Count 4.92 M/uL (3.86-4.86)
[2023-03-29 13:01] LABS: Potassium 3.3 mEq/L (3.5-5.1); Troponin High Sensitivity 26.7 pg/mL (<58.9)
[2023-03-29] MEDS ORDERED: PROMETHAZINE INJ 25 MG/ML AMP ONE (13:19)
[2023-03-29] MEDS ORDERED: HYDROMORPHONE HCL 1 MG/ML INJ ONE ×2 (13:19→18:26)
--- NOTE | 2023-03-29 13:24 | RAD REPORT ---
EXAM DESCRIPTION: RADChest Single View03/29/2023 12:48 pm CLINICAL HISTORY: CHEST PAIN COMPARISON: Chest Single View dated 11/13/2022; Chest Single View dated 11/07/2022; Chest Single View dated 08/29/2022; Chest Single View dated 08/08/2022 TECHNIQUE: Portable AP view of the chest. FINDINGS: The lungs are clear. No pneumothorax or effusion. The cardiomediastinal contours are unrem arkable. IMPRESSION: No acute cardiopulmonary process.
--- NOTE | 2023-03-29 14:07 | RAD REPORT ---
EXAM DESCRIPTION: CT - Head Brain Wo Cont - 03/29/2023 1:37 pm CLINICAL HISTORY: headache, weakness COMPARISON: Head Brain Wo Cont dated 12/01/2022; Head angio dated 08/02/2022 TECHNIQUE: Noncontrast head CT images ad were obtained without IV contrast. Multiplanar reformats we re generated and reviewed. All CT scans are performed using dose optimization technique as appropriate and may include automated exposure control or mA/KV adjustment according to patient size. FINDINGS: No intracranial hemorrhage, mass, or edema. Midline structures are unremarkable. Normal ventricular caliber for age. Morton-white matter differentiation is preserved, without evidence of acute infarct. No abnormal extra- axial fluid collections. Mastoid air cells are well aerated. Oaub-uz-nvhzdpvh mucosal thickening with aerated secretions in th e left maxillary sinus. No acute bony findings. IMPRESSION: No evidence of an acute intracranial process.
[2023-03-29] MEDS ORDERED: PHENYTOIN Inj 1,000 MG in NA CHLORIDE 0.9% 100 ML IV STA (14:35)
--- NOTE | 2023-03-29 14:43 | RAD REPORT ---
EXAM DESCRIPTION: CT - Spine Lumbar Wo Con - 03/29/2023 1:41 pm CLINICAL HISTORY: Pain;Weakness. Multiple falls yesterday COMPARISON: Spine Lumbar Wo Con dated 08/14/2022 TECHNIQUE: Axial noncontrast CT imaging of the lumbar spine was performed with coronal and sagittal re-formatted images. All CT scans are performed using dose optimization technique as appropriate and may include automated exposure control or mA/KV adjustment according to patient size. FINDINGS: No acute lumbar spine fracture seen. No aggressive marrow pattern or malalignment. Paraspinal tissues are normal in thickness. No paraspinal abscess or hematoma seen. Intervertebral disc disease assessment is inherently limited by CT. Within these limitations, stable multilevel degenerative changes are noted, with endplate remodeling and disc height loss most pronoun sol at L4-5 and to lesser degree at L3-4. Multilevel facet arthropathy without significant subluxatio n. Up to moderate bilateral neural foraminal narrowing at L4-5 and to lesser degree at L3-4. Posterio r disc protrusions, likely most pronounced at L3-4, contribute to at least moderate degree of central canal stenosis at that level. Limited evaluation of the retroperitoneal and abdominal structures reveals a stable left adrenal 2.8 x 2.4 cm hypodense lesion, most suggestive of an adenoma, stable in size. Sequelae of prior cholecyst ectomy. IMPRESSION: No acute osseous abnormality. Likely stable multilevel degenerative changes, including posterior disc herniations at L3-4 and to le sser extent at L4-5, with suspected moderate central canal stenosis at L3-4. Please consider MRI follow-up for assessment of disc disease and degrees of stenosis, as clinically i ndicated. Stable left adrenal mass, most suggestive of a benign adenoma.
--- NOTE | 2023-03-29 14:58 | EDPHYS ---
Physician Documentation [facility] Name: Heather Coon Age: 53 yrs Sex: Female : 1970 Arrival Date: 03/29/2023 Time: 12:06 Bed 14 Private MD: ED Physician Jones Parham HPI: 03/29 12:31 This 53 yrs old Female presents to ER via EMS with complaints of Back Pain, Leg Pain. rn 12:31 The patient presents with pain that is acute, that is chronic. The symptoms are located rn in the low back. Onset: The symptoms/episode began/occurred 4 day(s) ago. Associated signs and symptoms: Pertinent positives: numbness, Pertinent negatives: fever, hematuria. Modifying factors: The patient symptoms are alleviated by nothing, the patient symptoms are aggravated by any movement. Severity of symptoms: At their worst the symptoms were moderate, in the emergency department the symptoms are unchanged. The patient has experienced similar episodes in the past. Patient reports worsening of her regular back pain. Reports a couple falls recently, does not feel like she broke anything but has increased pain of the lower back that is radiating down both legs. Difficult for patient to say if weaker than normal because she says she is in so much pain.. Historical: - Allergies: 12:13 fluoxetine; kc6 12:13 Green Tea; kc6 12:13 Keppra; not an allergy, pt reports continued seizures while taking medication; kc6 - PMHx: 12:13 Anxiety; Arthritis; Bipolar disorder; Cancer-Cervical; Chronic obstructive lung kc6 disease; Chronic pain; Congestive heart failure; Depression; Diverticulitis; Herniated Back Disc; Hypertension; intestinal mass; Myocardial infarction; pt reports hx of seizures; Spastic Muscles; stroke; - PSHx: 12:13 cervical fusion; Cholecystectomy; foot; Tonsillectomy; kc6 - Immunization history:: Client reports having NOT received the Covid vaccine. Flu vaccine is up to date. - Social history:: Smoking status: Patient reports the use of cigarette tobacco products, Patient uses marijuana. - Family history:: not pertinent. - Hospitalizations: : No recent hospitalization is reported. ROS: 12:31 Constitutional: Negative for fever, chills, and weight loss, Cardiovascular: Negative rn for chest pain, palpitations, and edema, Respiratory: Negative for shortness of breath, cough, wheezing, and pleuritic chest pain, Abdomen/GI: Negative for abdominal pain, nausea, vomiting, diarrhea, and constipation, Back: Positive for low back pain : Negative for injury, bleeding, discharge, and swelling, MS/Extremity: Negative for injury and deformity, Skin: Negative for injury, rash, and discoloration, Neuro: Negative for headache and seizure Exam: 12:31 Constitutional: This is a well developed, well nourished patient who is awake, alert, rn and in no acute distress. Head/Face: Normocephalic, atraumatic. Eyes: Pupils equal round and reactive to light, extra-ocular motions intact. Neck: Trachea midline, no masses palpated, and no cervical lymphadenopathy. Cardiovascular: Tachycardic, regular. No pulse deficits. Respiratory: No increased work of breathing, no retractions or nasal flaring. Abdomen/GI: Soft, non-tender Skin: Warm, dry MS/ Extremity: Pulses equal, no cyanosis. Neuro: Awake and alert, GCS 15, oriented to person, place, time, and situation. Cranial nerves II-XII grossly intact. Motor strength 4-/5 in all extremities. Sensory grossly intact. 13:40 ECG was reviewed by the Attending Physician. rn Vital Signs: 12:11 BP 152 / 104; Pulse 105; Resp 18 S; Temp 98.2(O); Pulse Ox 100% on R/A; Weight 95.25 kg kc6 (R); Height 5 ft. 2 in. (R); 12:56 BP 138 / 102; Pulse 101; Resp 19 S; Pulse Ox 100% on R/A; kc6 14:55 Pulse 96; Resp 19 S; Pulse Ox 97% on R/A; kc6 15:24 BP 134 / 87; Pulse 93; Resp 16 S; Pulse Ox 95% on R/A; kc6 17:09 BP 131 / 80; Pulse 91; Resp 20 S; Pulse Ox 95% on R/A; kc6 12:11 Body Mass Index 38.41 (95.25 kg, 157.48 cm) kc6 MDM: 12:09 Patient medically screened. rn 14:18 ED course: Nurse reports patient had seizure-like activity, no LOC, patient reports rn history of seizures and stopped taking her Dilantin a while back, states marijuana helps her more than the Dilantin. I did not witness any seizure activity myself. 14:54 Differential diagnosis: chronic back pain, Osteoarthritis spinal injury, sprain, disc rn herniation, spinal cord compression, weakness, radiculopathy. Data reviewed: vital signs, nurses notes, lab test result(s), radiologic studies, CT scan, ultrasound, and as a result, I will admit patient. Consideration of Admission/Observation Patient was admitted/placed on observation. Escalation of care including admission/observation considered. Counseling: I had a detailed discussion with the patient and/or guardian regarding the historical points, exam findings, and any diagnostic results supporting the discharge/admit diagnosis, lab results, radiology results, the need for further work-up and treatment in the hospital, the need to transfer to another facility, for higher level of care, [facility] does not immediately have the required specialist. ED course: CT lumbar spine shows moderate canal stenosis with stable disc herniation. Patient symptoms are out of proportion to imaging finding. Patient insists that she cannot walk or support herself and also adds that she had fecal incontinence. Does not have bowel incontinence. Is weak on exam and even after pain medication still limited due to strength. At this point I have no option but to transfer for MRI and spinal consultation.. 03/29 12:20 Order name: CBC with Diff; Complete Time: 13:03/29 12:20 Order name: Basic Metabolic Panel; Complete Time: 13:03/29 12:20 Order name: Protime (+inr); Complete Time: 13:03/29 12:20 Order name: Ptt, Activated; Complete Time: 13:03/29 12:20 Order name: Troponin HS; Complete Time: 13:03/29 12:20 Order name: BNP; Complete Time: 13:03/29 12:20 Order name: CT Head Brain wo Cont; Complete Time: 14:46 rn 03/29 12:20 Order name: CT Lumbar Spine Wo Con; Complete Time: 14:46 rn 03/29 12:20 Order name: XRAY Chest (1 view); Complete Time: 13:47 rn 03/29 12:36 Order name: Lower Extremity Arterial Bilat US; Complete Time: 15:34 rn 03/29 12:20 Order name: EKG; Complete Time: 12:21 03/29 12:20 Order name: IV Start; Complete Time: 12:37 rn 03/29 12:20 Order name: Cardiac monitoring; Complete Time: 12:37 rn 03/29 12:20 Order name: EKG - Nurse/Tech; Complete Time: 12:37 rn 03/29 12:20 Order name: Labs collected and sent; Complete Time: 12:37 rn 03/29 12:20 Order name: O2 Per Protocol; Complete Time: 12:20 rn 03/29 12:20 Order name: O2 Sat Monitoring; Complete Time: 12:20 rn EC:40 Rate is 105 beats/min. Rhythm is regular. QRS [place] is Normal. ID interval is normal. rn QRS interval is normal. QT interval is normal. No Q waves. T waves are Normal. No ST changes noted. Clinical impression: Sinus tachycardia. Interpreted by me. Reviewed by me. Administered Medications: 12:37 Drug: morphine IVP or IV 4 mg Route: IVP; Infused Over: 4 mins; Site: right antecubital;kc6 14:55 Follow up: Response: No adverse reaction; Pain is unchanged, physician notified; RASS: kc6 Alert and Calm (0) 12:38 Drug: Ondansetron IVP 4 mg Route: IVP; Site: right antecubital; kc6 14:56 Follow up: Response: No adverse reaction; Nausea unchanged; Vomiting unchanged kc6 13:28 Drug: HYDROmorphone IVP 1 mg Route: IVP; Site: right antecubital; kc6 14:56 Follow up: Response: No adverse reaction; Pain is decreased; RASS: Alert and Calm (0) kc6 13:28 Drug: Promethazine IVP 12.5 mg Route: IVP; Site: left antecubital; kc6 14:56 Follow up: Response: No adverse reaction; Nausea is decreased; Vomiting decreased kc6 15:05 Drug: Phenytoin IVPB 1 grams Route: IVPB; Site: right forearm; kc6 16:15 Follow up: Response: No adverse reaction; IV Status: Completed infusion; IV Intake: kc6 100ml 18:18 Drug: HYDROmorphone IVP 1 mg Route: IVP; Site: right upper arm; kc6 18:22 Follow up: Response: No adverse reaction kc6 Disposition Summary: 03/29/23 14:57 Transfer Ordered Transfer Location: [facility] rn Reason: Higher level of care rn Condition: Stable rn Problem: an ongoing problem rn Symptoms: have worsened rn Accepting Physician: (03/29/23 18:23) kc6 Diagnosis - Low back pain rn - Weakness rn - Paresthesia of skin rn - Intervertebral disc stenosis of neural canal of lumbar region rn Forms: - Medication Reconciliation Form rn - SBAR form rn Signatures: Dispatcher [employer] EDJones Mane MD MD rn Campbell, Kaitlyn, RN RN kc6 Corrections: (The following items were deleted from the chart) 18: 14:57 rn kc6
--- NOTE | 2023-03-29 14:58 | ER ---
Nurse's Notes [facility] Name: Heather Coon Age: 53 yrs Sex: Female : 1970 Arrival Date: 03/29/2023 Time: 12:06 Bed 14 Private MD: Diagnosis: Low back pain;Weakness;Paresthesia of skin;Intervertebral disc stenosis of neural canal of lumbar region Presentation: 03/29 12:11 Chief complaint: EMS states: DENIS leg pain that began this morning. pt reports falling kc6 4x yesterday and hasn't been able to use her walker like normal. Coronavirus screen: At this time, the client does not indicate any symptoms associated with coronavirus-19. Ebola Screen: No symptoms or risks identified at this time. Initial Sepsis Screen: Does the patient meet any 2 criteria? No. Patient's initial sepsis screen is negative. Does the patient have a suspected source of infection? No. Patient's initial sepsis screen is negative. Risk Assessment: Do you want to hurt yourself or someone else? Patient reports no desire to harm self or others. Onset of symptoms was March 29, 2023. 12:11 Method Of Arrival: EMS: [facility] kc6 12:11 Acuity: ANDER 3 kc6 Triage Assessment: 12:13 General: Appears in no apparent distress. uncomfortable, unkempt, Behavior is calm, kc6 cooperative, appropriate for age. Pain: Complains of pain in back, right leg and left leg. EENT: No signs and/or symptoms were reported regarding the EENT system. Neuro: Level of Consciousness is awake, alert, obeys commands, Oriented to person, place, time, situation, Appropriate for age. Cardiovascular: Capillary refill < 3 seconds. Respiratory: Airway is patent Trachea midline Respiratory effort is even, unlabored, Respiratory pattern is regular, symmetrical. GI: No signs and/or symptoms were reported involving the gastrointestinal system. : No signs and/or symptoms were reported regarding the genitourinary system. Derm: No signs and/or symptoms reported regarding the dermatologic system. Skin is intact, is healthy with good turgor, Skin is pink, warm \T\ dry. Musculoskeletal: No signs and/or symptoms reported regarding the musculoskeletal system. Circulation, motion, and sensation intact. Capillary refill < 3 seconds. Historical: - Allergies: 12:13 fluoxetine; kc6 12:13 Green Tea; kc6 12:13 Keppra; not an allergy, pt reports continued seizures while taking medication; kc6 - PMHx: 12:13 Anxiety; Arthritis; Bipolar disorder; Cancer-Cervical; Chronic obstructive lung kc6 disease; Chronic pain; Congestive heart failure; Depression; Diverticulitis; Herniated Back Disc; Hypertension; intestinal mass; Myocardial infarction; pt reports hx of seizures; Spastic Muscles; stroke; - PSHx: 12:13 cervical fusion; Cholecystectomy; foot; Tonsillectomy; kc6 - Immunization history:: Client reports having NOT received the Covid vaccine. Flu vaccine is up to date. - Social history:: Smoking status: Patient reports the use of cigarette tobacco products, Patient uses marijuana. - Family history:: not pertinent. - Hospitalizations: : No recent hospitalization is reported. Screenin:15 [facility] ED Fall Risk Assessment (Adult) History of falling in the last 3 months, kc6 including since admission Yes- single mechanical fall (1 pt) Confusion or Disorientation No (0 pts) Intoxicated or Sedated Impaired Gait Yes (1 pt) Mobility Assist Device Used Yes (1 pt) Altered Elimination No (0 pt) Score/Fall Risk Level 3 or more points = High Risk. Abuse screen: Denies threats or abuse. Denies injuries from another. Nutritional screening: No deficits noted. Tuberculosis screening: No symptoms or risk factors identified. Assessment: 12:14 Reassessment: please see triage assessment. kc6 12:56 Reassessment: pt appears to be actively vomiting clear fluid. Dr. Parham notified. kc6 13:14 Reassessment: Patient appears in no apparent distress at this time. No changes from 6 previously documented assessment. Patient and/or family updated on plan of care and expected duration. Pain level reassessed. Patient is alert, oriented x 3, equal unlabored respirations, skin warm/dry/pink. 14:14 Reassessment: Patient appears in no apparent distress at this time. No changes from kc6 previously documented assessment. Patient and/or family updated on plan of care and expected duration. Pain level reassessed. Patient is alert, oriented x 3, equal unlabored respirations, skin warm/dry/pink. 14:20 Reassessment: CONTENT ADMINISTRATOR AT PATIENT BEDSIDE. PATIENT NOTED TO HAVE SEIZURE LIKE db ACTIVITY. PATIENT ABLE TO RESPOND AND ANSWER THAT SHE HAS A HISTORY OF SEIZURES. PATIENT SEIZURE LIKE ACTIVITY LASTED APPROXIMATELY 15 SECONDS. NOTED PATIENT AOX4 POST SEIZURE LIKE ACTIVITY NO POST ICTAL PERIOD. PATIENT IV ACCESS LOST DURING ACTIVITY. BANDAGE APPLIED AND BLEEDING CONTROLLED. PT SAFE AND NEXT TO NURSES STATION. DR. PARHAM NOTIFIED AND CAME IMMEDIATELY AND ASSESSED PATIENT. PATIENT AOX4 SPEAKING TO PHYSICIAN UPON HIS ARRIVAL. 15:15 Reassessment: Patient appears in no apparent distress at this time. No changes from kc6 previously documented assessment. Patient and/or family updated on plan of care and expected duration. Pain level reassessed. Patient is alert, oriented x 3, equal unlabored respirations, skin warm/dry/pink. 15:23 Reassessment: Karrie (daughter) [phone]. kc6 16:15 Reassessment: Patient appears in no apparent distress at this time. No changes from 6 previously documented assessment. Patient and/or family updated on plan of care and expected duration. Pain level reassessed. Patient is alert, oriented x 3, equal unlabored respirations, skin warm/dry/pink. 17:25 Reassessment: attempted to call report to [facility]. on hold for 5min. kc6 18:23 Reassessment: Patient appears in no apparent distress at this time. No changes from [facility] previously documented assessment. Patient and/or family updated on plan of care and expected duration. Pain level reassessed. Patient is alert, oriented x 3, equal unlabored respirations, skin warm/dry/pink. Vital Signs: 12:11 BP 152 / 104; Pulse 105; Resp 18 S; Temp 98.2(O); Pulse Ox 100% on R/A; Weight 95.25 kg kc6 (R); Height 5 ft. 2 in. (R); 12:56 BP 138 / 102; Pulse 101; Resp 19 S; Pulse Ox 100% on R/A; kc6 14:55 Pulse 96; Resp 19 S; Pulse Ox 97% on R/A; kc6 15:24 BP 134 / 87; Pulse 93; Resp 16 S; Pulse Ox 95% on R/A; kc6 17:09 BP 131 / 80; Pulse 91; Resp 20 S; Pulse Ox 95% on R/A; kc6 12:11 Body Mass Index 38.41 (95.25 kg, 157.48 cm) kc6 ED Course: 12:09 Patient arrived in ED. db 12:09 Jones Parham MD is Attending Physician. rn 12:11 Nichelle Hightower RN is Primary Nurse. kc6 12:13 Triage completed. kc6 12:13 Arm band placed on. kc6 12:15 Patient has correct armband on for positive identification. Bed in low position. Call kc6 light in reach. Side rails up X2. Client placed on continuous cardiac and pulse oximetry monitoring. NIBP monitoring applied. 12:38 Inserted saline lock: 20 gauge in right antecubital area, using aseptic technique. kc6 Blood collected. 12:50 XRAY Chest (1 view) In Process Unspecified. EDMS 13:28 IV discontinued, intact, bleeding controlled, No redness/swelling at site. Pressure kc6 dressing applied. Inserted saline lock: 20 gauge in left antecubital area, using aseptic technique. 13:38 CT Head Brain wo Cont In Process Unspecified. EDMS 13:40 CT Lumbar Spine Wo Con In Process Unspecified. EDMS 14:20 IV discontinued, intact, bleeding controlled, PT IV ACCESS DISLODGED DURING SEIZURE db LIKE ACTIVITY. 14:35 Lower Extremity Arterial Bilat US In Process Unspecified. EDMS 14:58 Inserted saline lock: 20 gauge in right upper arm, using aseptic technique. ,using nj1 aseptic technique. Ultrasound guided. Catheter tip well visualized within vasculature during placement. 14:59 initiated a transfer with Kishore Henson from the [facility]. eb 16:[address] Rai the neuro tangible personal property appraiser for [facility] with Dr. Parham for patient eb transfer consultation. 16:44 connected the hospitalist tangible personal property appraiser for [facility] with Dr. Parham for patient eb transfer consultation. 16:53 administrative approval given by Kishore Henson/ patient has been accepted to [facility] room 2227/ Dr. Connie Davey has accepted the patient in transfer/ report to be called to [phone]. 18:22 No provider procedures requiring assistance completed. Patient transferred, IV remains kc6 in place. Administered Medications: 12:37 Drug: morphine IVP or IV 4 mg Route: IVP; Infused Over: 4 mins; Site: right antecubital;kc6 14:55 Follow up: Response: No adverse reaction; Pain is unchanged, physician notified; RASS: kc6 Alert and Calm (0) 12:38 Drug: Ondansetron IVP 4 mg Route: IVP; Site: right antecubital; kc6 14:56 Follow up: Response: No adverse reaction; Nausea unchanged; Vomiting unchanged kc6 13:28 Drug: HYDROmorphone IVP 1 mg Route: IVP; Site: right antecubital; kc6 14:56 Follow up: Response: No adverse reaction; Pain is decreased; RASS: Alert and Calm (0) kc6 13:28 Drug: Promethazine IVP 12.5 mg Route: IVP; Site: left antecubital; kc6 14:56 Follow up: Response: No adverse reaction; Nausea is decreased; Vomiting decreased kc6 15:05 Drug: Phenytoin IVPB 1 grams Route: IVPB; Site: right forearm; kc6 16:15 Follow up: Response: No adverse reaction; IV Status: Completed infusion; IV Intake: kc6 100ml 18:18 Drug: HYDROmorphone IVP 1 mg Route: IVP; Site: right upper arm; kc6 18:22 Follow up: Response: No adverse reaction kc6 Medication: 18:23 VIS not applicable for this client. kc6 Intake: 16:15 IV: 100ml; Total: 100ml. kc6 Outcome: 14:57 ER care complete, transfer ordered by . rn 18:22 Transferred by [facility] to [facility], Transfer form completed. kc6 18:22 Condition: improved 18:22 Instructed on the need for transfer. 18:23 Patient left the ED. kc6 Signatures: Dispatcher [employer] EDMS Jones Parham MD MD rn Botello, Elizabeth eb Campbell, Kaitlyn, RN RN kc6 Arlette Lyles RN RN db Jaco, Norma, RN RN nj1
--- NOTE | 2023-03-29 15:17 | RAD REPORT ---
EXAM DESCRIPTION: US - Lower Extremity Arterial Bilat - 03/29/2023 2:33 pm CLINICAL HISTORY: discoloration of feet;Pain COMPARISON: Lower Extremity Artery [facility] dated 12/11/2021 TECHNIQUE: Bilateral lower extremity arterial Doppler examination was performed with herb elizabeth FINDINGS: Up to moderate calcific atherosclerotic plaque, most pronounced along the right lower leg arterial system. Triphasic waveforms are seen throughout both lower extremity arterial systems, with the exception of bilateral posterior tibial and left dorsalis pedis arteries, which demonstrate biphasic flow. IMPRESSION: Evidence of mild significant peripheral vascular disease.
[2023-03-29 18:28] VITALS: TEMP 98.2
[2023-03-29 18:33] VITALS: O2SAT 95
[2023-03-29 18:35] VITALS: BP 131/80
--- NOTE | 2023-03-30 17:08 | EKG ---
Test Date: 2023-03-29 Test Time: 12:26:46 Perioperative Educator: DON MEASUREMENT RESULTS: Intervals: Rate: 105 WY: 138 QRSD: 90 QT: 374 QTc: 494 [place]: P: 75 W[place]: 138 QRS: 126 T: 49 INTERPRETIVE STATEMENTS: Sinus tachycardia Right atrial enlargement Lateral infarct, age undetermined Abnormal ECG Compared to ECG 02/04/2023 11:45:00 Atrial abnormality now present Left-axis deviation no longer present Myocardial infarct finding still present Electronically Signed On 03-30-23 17:05:46 CDT by Saad Leavitt
== END 2023-03-29 18:23 | disposition short-term general hospital (02) ==
LOC: ER 12:06
DX: M99.73 Connective tissue and disc stenosis of intervertebral foramina of lumbar region (principal); M54.50 Low back pain, unspecified; R53.1 Weakness; R20.2 Paresthesia of skin; F17.210 Nicotine dependence, cigarettes, uncomplicated; I25.2 Old myocardial infarction; F41.9 Anxiety disorder, unspecified; F31.9 Bipolar disorder, unspecified; I50.9 Heart failure, unspecified; I10 Essential (primary) hypertension; G89.29 Other chronic pain; J44.9 Chronic obstructive pulmonary disease, unspecified; Z86.73 Personal history of transient ischemic attack (TIA), and cerebral infarction without residual deficits
CPT/HCPCS: 93005; 85025; 80048; 36415; 85610; 85730; 84484; 83880; 72131; 70450; 71045; 93925; 99285; J2550; J1165; J1170 ×2; J2405

== ENCOUNTER 2023-05-03 09:19 | Inpatient (IN) | payer OTHER ==
--- OUTSIDE RECORDS SUMMARY | 2023-05-03 09:32 | XMS REPORT | Continuity of Care Document ---
:1970 Author Organization [facility] t Address [address] [place] [address] Care Team Providers Name Role Phone Aneta Silva Primary Care Physician [phone] THOMAS LOZOYA Attending Clinician Unavailable MARIAH ALDRIDGE Attending Clinician Unavailable Connie Davey MD Attending Clinician Mariah Aldridge MD Attending Clinician Thomas Lozoya MD Attending Clinician [phone] CONNIE DAVEY Attending Clinician Unavailable Alfonso ALVARADO Attending Clinician Unavailable Alfonso Lopez Attending Clinician RITHCIE WARREN Attending Clinician Unavailable Ritchie Warren MD Attending Clinician Rk CAMPOS, Shy Stoner Attending Clinician Halima Mendoza MD Attending Clinician Jen Geller MD Attending Clinician Roxi ELIZONDO, Parrish Reyez Attending Clinician [phone] PARRISH WHEATLEY Attending Clinician Unavailable LORENZA LOWRY Attending Clinician Unavailable Sav Rondon MD Attending Clinician Lorenza Lowry MD Attending Clinician Maria Teresa Nicole LVN Attending Clinician CHANTEL MATTHEWS Attending Clinician Unavailable CHANTEL MATTHEWS Attending Clinician Unavailable Brandyn Ibrahim MD Attending Clinician SELINA MARTINES Attending Clinician Unavailable Sapna Vargas DO Attending Clinician Glory Sarah MD Attending Clinician [phone] Selina Martines MD Attending Clinician Vaccine, Balmorhea Pedi Attending Clinician Unavailable Jose Pak MD Attending Clinician JOSE PAK Attending Clinician Unavailable NICHELLE VIRK Attending Clinician Unavailable Sully SCREEN CLEANERNichelle F Attending Clinician Doctor Unassigned, [place] Attending Clinician Unavailable Miky Nava RN Attending Clinician Unavailable Palmer SCREEN CLEANER, Fabrice Attending Clinician Deo SCREEN CLEANER, Lydia Attending Clinician Unknown, Attending Attending Clinician Unavailable UNKNOWN, ATTENDING Attending Clinician Unavailable Anali Rascon Attending Clinician Yehuda Arcos MD Attending Clinician MARIAH ALDRIDGE Admitting Clinician Unavailable CONNIE DAVEY Admitting Clinician Unavailable Alfonso ALVARADO Admitting Clinician Unavailable RITCHIE WARREN Admitting Clinician Unavailable JEN GELLER Admitting Clinician Unavailable LORENZA LOWRY Admitting Clinician Unavailable Lorenza Lowry MD Admitting Clinician BRANDYN IBRAHIM Admitting Clinician Unavailable Brandyn Ibrahim MD Admitting Clinician GLORY SARAH Admitting Clinician Unavailable NICHELLE VIRK Admitting Clinician Unavailable Payers Payer Name Policy Type Policy Number Effective Date Expiration Date Benjamin RICARDO [id number] 2023 00:00:00 MEDICAID PENDING PENDING 2022 00:00:00 Problems Condition Condition Condition Status Onset Resolution Last Treating Co mments Source Name Details Category Date Date Treatment Clinician Date Cord Cord Disease Recurre [facility] compress[facility]ce 9-11 [facility] n n 00:00: Medical 00 Center Cauda Cauda Disease Recurre [facility]11 [facility] compressio compressio 00:00: Me dical n n 00 Center Seizure Seizure Disease Recurre [facility]14 [facility] 00:[facility]: Medical [facility] Center Cardiomyop Cardiomyop Disease Active U nivers athy athy 1-13 ity of 00:00: [place] 00 Medical Branch NSVT NSVT Disease Active Univers (nonsustai (nonsustai 1-13 it y of keisha keisha 00:00: [place] ventricula ventricula 00 Tn dical r r Branch tachycardi tachycardi a) [...] 00:00: [place] involving involving 00 Medi [place] coronary coronary artery of artery of [place] heart heart without without angina angina pectoris [...] 00:00: [place] involving involving 00 Medi kw[place] coronary coronary artery of artery [place] heart without without angina angina pectoris [...] anxiety 3-11 ity of disorder disorder 00:00: [place] [facility] Agoraphobi Agoraphobi Disease Active U nivers a a 3- ity of 00:00: [place] [facility] Bipolar Bipolar Disease Active Univers disorder, disorder, 3 [place] of in partial [place] remission, remission, 00 Me dical most most Branch recent recent episode episode manic manic 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 3 it y of disorder disorder 00:00: [place] [facility] Breast Breast Disease Active Univers mass, left mass, left 3 it y of 00:00: [place] [facility] Anxiety Anxiety Disease Active Univers 3 ity of 00:00: [place] [facility] Lower back Lower back Disease Active U nivers pain pain 3 ity of 00:00: [place] [facility] High blood High blood Disease Active U nivers pressure pressure 3 ity of 00:00: [place] [facility] COPD COPD Disease Active Univers (chronic (chronic 09-17 ity of obstructiv obstructiv [place]: [place] e [place] 00 Medical pulmonary pulmonary Bran ch disease) disease) Obesity Obesity Disease Active Univers 3 ity of 00:00: [place] [facility] Allergies, Adverse Reactions, Alerts Allergy Allergy Status Severity Reaction(s) Onset Inactive Treating Comm ents Source Name Type Date Date Clinician Green Propensi Active Seizure [facility] 9-10 [facility] adverse 00:00: activity Medical reaction 00 Center s Levetira Propensi Active Nausea And Intensifi [facility] cetam ty to Vomiting 9-10 es [facility] adverse 00:00: seizure Medical reaction 00 Center s Fluoxeti Propensi Active [facility] ne ty to 9-10 [facility] adverse 00:00: Medical reaction 00 Center s FLUOXETI Allergy Active [facility] NE 9-10 [facility] 00:00: Medical 00 Center GREEN Allergy Active [facility] TEA 9-10 [facility] 00:00: Medical 00 Center LEVETIRA Allergy Active N\\T\\V [facility] CETAM 9-10 [facility] 00:00: Medical 00 Center LEVETIRA DRUG Active Other-Cmnt Univ ers CETAM INGREDI 11-17 ity of 00:00: [place] [facility] Levetira Propensi Active Other - See Makes U nivers cetam ty to comments 11-17 seizures ity of adverse 00:00: worse [place] reaction 00 Medical s Branch Fluoxeti Propensi Active Rash [facility] ne ty to 08-02 [facility] adverse 00:00: Medical reaction 00 Center s Green Propensi Active [facility] Tea ty to 14 [facility] adverse 00:00: Medical reaction 00 Center s GREEN Allergy Active [facility] TEA 1-14 [facility] 00:00: Medical 00 Center FLUOXETI Allergy Active Med Rash [facility] NE -14 [facility] 00:00: Medical 00 Center Fluoxeti Propensi [...] 00 Medical Branch Diclofen Propensi Active Hypertension 2015-0 Univers ac ty to 11-20 ity of [...] Stop Date Source Natural mother Alcohol abuse [facility] Natural mother Cancer [facility] Natural mother Diabetes [facility] Natural mother [facility] Natural mother Hyperlipidemia [facility] Natural mother Kidney disease [facility] Natural mother Stroke [facility] Paternal uncle Diabetes [facility] Social History Social Habit Start Date Stop Date Quantity Comments Source History SDOH Social Unive rsity of Connections [facility] Med ical Together Branch History SDOH Social Unive rsity of [facility] Medical Branch History SDOH Social Unive rsity of [facility] Medical Membership Branch History SDOH Social Unive rsity of [facility] Medical Meetings Branch History SDOH [facility] Last Year History of tobacco Cigarette Smoker [facility] use Medical Center History SDOH [facility] Alcohol Frequency Medical Center History SDOH [facility] Alcohol Std Drinks Medica l Center History SDOH [facility] Alcohol Binge Medical [address] Alcohol intake 2023-04-03 2023-04-03 [facility]00 of alcohol Medical Center (finding) History SDIL 2023-03-30 2023-03-[address] [facility] Unable to 00:00:00 00:00:00 Medical Center Pay History [facility] 2023-03-30 2023-03-[address] [facility] Housing Places 00:00:00 00:00:00 Medical Ce nter Lived Cigarettes smoked 2023-03-29 2023-03-[address] [facility] current (pack per 00:00:00 00:00:00 Medical Center day) - Reported Cigarette 2023-03-29 2023-03-[address] [facility] pack-years 00:00:00 00:00:00 Medical Center Tobacco use and 2023-03-29 2023-03-[address] [facility] [address] [facility] exposure 00:00:00 00:00:00 tobacco non-user Medical Center Alcohol Comment 2023-03-29 2023-03-29 [address] [facility] 00:00:00 00:00:00 Medical Center Exposure to 2022-12-01 2022-12-11 Not sure University of SARS-CoV-2 (event) 00:00:00 08:54:00 [place] [facility] History SDOH Social 2022-08-01 2022-08-01 5 Unive rsity of Connections Phone 00:00:00 00:00:00 [facility] [place] [facility] edical Branch History SDIL Social 2022-08-01 2022-08-01 5 Unive rsity of Connections Living 00:00:00 00:00:00 [place] [facility] History SDOH 2022-08-01 2022-08-01 0 University o f Physical Activity 00:00:00 00:00:00 [facility] [place] [facility] edical DPW Branch History SDOH 2022-08-01 2022-08-01 0 University o f Physical Activity 00:00:00 00:00:00 [facility] [place] [facility] edical MPS Branch History SDOH 2022-08-01 2022-08-01 3 University o f Financial 00:00:00 00:00:00 [place] [facility] History SDOH Food 2022-08-01 2022-08-01 1 Univers ity of Worry 00:00:00 00:00:00 [place] [facility] History SDOH Food 2022-08-01 2022-08-01 1 Univers ity of Scarcity 00:00:00 00:00:00 [place] [facility] History SDIL 2022-08-01 2022-08-01 2 University o f Transport Med 00:00:00 00:00:00 [place] Medic al Branch History SDIL 2022-08-01 2022-08-01 2 University o f Transport Non-Med 00:00:00 00:00:00 [facility] [place] [facility] edical Branch Education 2022-07-31 2022-07-31 14 University of 00:00:00 00:00:00 [facility] Sex Assigned At [address] [facility] 00:00:00 00:00:00 Medical Center Smoking Status Start Date Stop Date Source Smokes tobacco daily 2023-03-29 00:00:00 [facility] Medications Ordered Filled Start Stop Current Ordering Indication Dosage Frequency Signature Comments Components Source Medication Medication Date Date Medication? Clinician (SIG) Name Name furosemide 2023- Yes 20mg QD Take [address] [facility] (LASIX) 20 04-03 tablet (20 Re[facility] kes MG tablet 00:00: 23:59 mg total) Me dical 00 :00 by mouth Center daily. DULoxetine 2023- Yes 30mg QD Take [address] [facility] (CYMBALTA) 04-03 capsule [facility] 30 MG 00:00: 23:59 (30 mg Medical capsule 00 :00 total) by Center mouth daily. lisinopriL 2023- Yes 5mg QD Take [address] [facility] (PRINIVIL,Z 04-03 tablet (5 Reina kes ESTRIL) 5 00:00: 23:59 mg total) Me dical MG tablet 00 :00 by mouth Center daily. furosemide 2023- Yes 20mg QD Take [address] [facility] (LASIX) 20 04-03 tablet (20 Reina kes MG tablet 00:00: 23:59 mg total) Me dical 00 :00 by mouth Center daily. DULoxetine 2023- Yes 30mg QD Take [address] [facility] (CYMBALTA) 04-03 capsule [facility] 30 MG 00:00: 23:59 (30 mg Medical capsule 00 :00 total) by Center mouth daily. lisinopriL 2023- Yes 5mg QD Take [address] [facility] (PRINIVIL,Z 04-03 tablet (5 Reina kes ESTRIL) 5 00:00: 23:59 mg total) Me dical MG tablet 00 :00 by mouth Center daily. aspirin 81 2022- Yes 81mg QD Take [address] [facility] [address] MG EC 04-03 tablet (81 [facility] tablet 00:00: 23:59 mg total) Medic al 00 :00 by mouth Center daily for 90 days. divalproex 2022- Yes 500mg Q.5D Take [address] [facility] (DEPAKOTE) 04-03 tablet [facility] 500 MG EC 00:00: 23:59 (500 mg Medi kwame tablet 00 :00 total) by Center mouth 2 (two) times daily for 90 days. gabapentin 2022- Yes 300mg Q.[id number] Take [address] [facility] (NEURONTIN) 04-03 [id number] capsule [facility] 300 MG 00:00: 23:59 3D (300 mg Medical capsule 00 :00 total) by Center mouth 3 (three) times daily for 90 days. aspirin 81 2022- Yes 81mg QD Take [address] [facility] MG EC 04-03 tablet (81 [facility] tablet 00:00: 23:59 mg total) Medic al 00 :00 by mouth Center daily for 90 days. divalproex 2022- Yes 500mg Q.5D Take [address] [facility] (DEPAKOTE) 04-03-14 tablet [facility] 500 MG EC 00:00: 23:59 (500 mg Medi kwame tablet 00 :00 total) by Center mouth 2 (two) times daily for 90 days. gabapentin 2022- Yes 300mg Q.[id number] Take [address] [facility] (NEURONTIN) 04-03-14 [id number] capsule [facility] 300 MG 00:00: 23:59 3D (300 mg Medical capsule 00 :00 total) by Center mouth 3 (three) times daily for 90 days. clonazePAM 2022- Yes .25mg Take 0.[address] (KlonoPIN) 04-03-15 tablets [facility] 0.5 MG 00:00: 23:59 (0.25 mg Medica l tablet 00 :00 total) by Center mouth 2 (two) times daily as needed for Anxiety for up to 30 days. Max Daily Amount: 0.5 mg clonazePAM 2022- Yes .25mg Take 0.[address] (KlonoPIN) 04-03-15 tablets [facility] 0.5 MG 00:00: 23:59 (0.25 mg Medica l tablet 00 :00 total) by Center mouth 2 (two) times daily as needed for Anxiety for up to 30 days. Max Daily Amount: 0.5 mg HYDROcodone 2022- No 1{tbl} Take [address] -acetaminop 04-03 tablet by Reina dominic price (NORCO 00:00: 23:59 mouth Medic al 10-325) 00 :00 every 6 Center 10-325 mg (six) per tablet hours as needed for up to 10 days. Max Daily Amount: 4 tablets methocarbam 2022- No 500mg Q.25D Take [address] oL 04-03-25 tablet [facility] (ROBAXIN) 00:00: 23:59 (500 mg Medi kwame 500 MG 00 :00 total) by Center tablet mouth 4 (four) times daily for 10 days. HYDROcodone 2022- No 1{tbl} Take [address] -acetaminop 04-03 tablet by Reina alfaro hen (NORCO 00:00: 23:59 mouth Medic al 10-325) 00 :00 every 6 Center 10-325 mg (six) per tablet hours as needed for up to 10 days. Max Daily Amount: 4 tablets methocarbam 2022- No 500mg Q.25D Take [address] oL 04-03 tablet [facility] (ROBAXIN) 00:00: 23:59 (500 mg Medi kwame 500 MG 00 :00 total) by Center tablet mouth 4 (four) times daily for 10 days. aspirin 81 2022- No 81mg QD Take [address] [facility] MG EC 04-03 tablet (81 [facility] tablet 00:00: 00:00 mg total) Medic al 00 :00 by mouth Center daily for 90 days. DULoxetine 2022- No 30mg QD Take [address] [facility] (CYMBALTA) 04-03 capsule [facility] 30 MG 00:00: 00:00 (30 mg Medical capsule 00 :00 total) by Center mouth daily. furosemide 2022- No 20mg QD Take [address] [facility] (LASIX) 20 04-03 tablet (20 Reina kes MG tablet 00:00: 00:00 mg total) Me dical 00 :00 by mouth Center daily. lisinopriL 2022- No 5mg QD Take [address] [facility] (PRINIVIL,Z 04-03 tablet (5 Reina kes ESTRIL) 5 00:00: 00:00 mg total) Me dical MG tablet 00 :00 by mouth Center daily. lisinopriL 2022- No 5mg QD Take [address] [facility] (PRINIVIL,Z 04-03 tablet (5 Reina kes ESTRIL) 5 00:00: 00:00 mg total) Me dical MG tablet 00 :00 by mouth Center daily. aspirin 81 2022-3- No 81mg QD Take [address] [facility] [facility] MG EC 04-03 tablet (81 [facility] tablet 00:00: 00:00 mg total) Medic al 00 :00 by mouth Center daily for 90 days. DULoxetine 2022-2022- No 30mg QD Take [address] [facility] (CYMBALTA) 04-03 capsule [facility] 30 MG 00:00: 00:00 (30 mg Medical capsule 00 :00 total) by Center mouth daily. furosemide 2022- No 20mg QD Take [address] [facility] (LASIX) 20 04-03 tablet (20 Reina kes MG tablet 00:00: 00:00 mg total) Me dical 00 :00 by mouth Center daily. divalproex 2022- No 500mg Q.5D Take [address] [facility] [facility] (DEPAKOTE) 04-02 tablet [facility] 500 MG EC 00:00: 00:00 (500 mg Medi kwame tablet 00 :00 total) by Center mouth 2 (two) times daily for 90 days. clonazePAM 2022- No .25mg Take 0.[address] (KlonoPIN) 04-02 tablets [facility] 0.5 MG 00:00: 00:00 (0.25 mg Medica l tablet 00 :00 total) by Center mouth 2 (two) times daily as needed for Anxiety for up to 30 days. Max Daily Amount: 0.5 mg gabapentin 2022- No 300mg Q.[id number] Take [address] [facility] (NEURONTIN) 04-02 [id number] capsule [facility] 300 MG 00:00: 00:00 3D (300 mg Medical capsule 00 :00 total) by Center mouth 3 (three) times daily for 90 days. HYDROcodone 2022- No 1{tbl} Take [address] -acetaminop 04-02 tablet by Reina price (NORCO 00:00: 00:00 mouth Medic al 10-325) 00 :00 every 6 Center 10-325 mg (six) per tablet hours as needed for up to 10 days. Max Daily Amount: 4 tablets methocarbam 2022- No 500mg Q.25D Take [address] oL 04-02 tablet [facility] (ROBAXIN) 00:00: 00:00 (500 mg Medi kwame 500 MG 00 :00 total) by Center tablet mouth 4 (four) times daily for 10 days. gabapentin 2022- No 300mg Q.[id number] Take [address] [facility] (NEURONTIN) 04-02 [id number] capsule [facility] 300 MG 00:00: 00:00 3D (300 mg Medical capsule 00 :00 total) by Center mouth 3 (three) times daily for 90 days. HYDROcodone 2022- No 1{tbl} Take [address] -acetaminop 04-02 tablet by Reina price (NORCO 00:00: 00:00 mouth Medic al 10-325) 00 :00 every 6 Center 10-325 mg (six) per tablet hours as needed for up to 10 days. Max Daily Amount: 4 tablets methocarbam 2022- No 500mg Q.25D Take [address] oL 04-02 tablet [facility] (ROBAXIN) 00:00: 00:00 (500 mg Medi kwame 500 MG 00 :00 total) by Center tablet mouth 4 (four) times daily for 10 days. divalproex 2022- No 500mg Q.5D Take [address] [facility] [address] (DEPAKOTE) 04-02 tablet [facility] 500 MG EC 00:00: 00:00 (500 mg Medi kwame tablet 00 :00 total) by Center mouth 2 (two) times daily for 90 days. clonazePAM 2022- No .25mg Take 0.[address] (KlonoPIN) 04-02 tablets [facility] 0.5 MG 00:00: 00:00 (0.25 mg Medica l tablet 00 :00 total) by Center mouth 2 (two) times daily as needed for Anxiety for up to 30 days. Max Daily Amount: 0.5 mg lacosamide 2022- No 200mg 200 mg, IV Univers (VIMPAT) - 05-25 Piggyback, ity of 200 mg in 19:45: 19:57 ONCE, 1 [place] NaCl 0.9% 00 :00 dose, On Medica l (NS) 50 mL [place] Branch piggyback 12/11/22 at 1445, Administer over 30 Minutes, 50 mL
F aculty member approving Restricted medication : Alfonso ALVARADO ketorolac 2022- No 15mg 15 mg, Unive rs (TORADOL) 12-11 05-25 Slow IV ity of injection 18:15: 17:25 Push, [place] 15 mg 00 :00 ONCE, 1 Medical dose, On Branch [facility] 12/11/22 at 1315, MICHAEL iopamidol 2022- No [id number] 80mL 80 mL, U nivers (ISOVUE 12-11-25 Intravenou ity o f 370-500 mL) 16:30: 16:27 s, ONCE, 1 [place] injection 00 :00 dose, On Medica l 80 mL [facility] Branch 12/11/22 at 1130, Routine nitroglycer 2022- No .5[in_u 0.5 Inch, Univers in (NITROL) 12-11- s] Transderma i ty of 2 % 15:30: 14:31 l (Apply [place] ointment 00 :00 To Skin), Medica l 0.5 Inch ONCE, 1 Branch dose, On [facility] 12/11/22 at 1030, MICHAEL aspirin 2022- No 324mg 324 mg, Unive rs chewable 12-11-25 Oral, ity of tablet 324 15:30: 14:30 ONCE, 1 [place] as mg 00 :00 dose, On [facility] Branch 12/11/22 at 1030, Routine ondansetron 2022- No 4mg 4 mg, Slow Univers (ZOFRAN 12-11-25 IV Push, ity of (PF)) 15:30: 14:29 ONCE, 1 [place] injection 4 00 :00 dose, On Medi kwame mg [facility] Branch 12/11/22 at 1030, MICHAEL LORazepam 2022- No 1mg 1 mg, Slow U nivers (ATIVAN) 12-11 05-25 IV Push, ity of injection 1 15:00: 14:57 ONCE, 1 [place] mg 00 :00 dose, On [facility] 12/11/22 at 1000, STAT Lacosamide Yes [id number] 100mg Take 1 Univers (VIMPAT) 5-25 tablet by ity of 100 mg 00:00: mouth in [place] tablet 00 the Medical morning Branch and 1 tablet in the evening. acetaminoph 2022- No 1{tbl} 1 tablet, Univers en-codeine 11-18 Oral, ity of (TYLENOL 05:30: 05:30 ONCE, 1 [place] #3) 300-30 00 :00 dose, On Medic al mg tablet 1 Thu11/18/22 Br anch tablet at 0030, MICHAEL methocarbam 2022- No 1000mg 1,000 mg, Univers oL 11-18 Oral, ity of (ROBAXIN) 05:30: 05:30 ONCE, 1 [place] tablet 00 :00 dose, On Medical 1,000 mg Thu11/18/22 Branc h at 0030, MICHAEL ondansetron 2022- No 4mg 4 mg, Slow Univers (ZOFRAN 11-18 IV Push, ity of (PF)) 04:45: 03:38 ONCE, 1 [place] injection 4 00 :00 dose, On Medi kwame mg Thu11/17/22 Branch at 2345, MICHAEL morpHINE (4 2022- No 4mg 4 mg, Slow Univers mg/mL) 11-18 IV Push, ity of injection 4 03:45: 03:38 ONCE, 1 [place] mg 00 :00 dose, On Medical Thu11/17/22 Branch at 2245, Routine methocarbam 2022- No 1000mg 1,000 mg, Univers oL 11-18 Intravenou ity of (ROBAXIN) 00:30: 23:47 s, ONCE, 1 [place] injection 00 :00 dose, On Medica l 1,000 mg Thu11/17/22 Bran h at 1930, MICHAEL methocarbam 2022-0 Yes [id number] 1000mg Take 2 Univers oL 500 mg 5-02 tablets by ity of tablet 00:00: mouth 4 (four) Medical times Branch daily as needed for Pain (scale 7-10). methocarbam 3-0 Yes [id number] 1000mg Take 2 Univers oL 500 mg 5-02 tablets by ity of tablet 00:00: mouth 4 (four) Medical times Branch daily as needed for Pain (scale 7-10). acetaminoph 2022-2022- No [id number] 1{tbl} Take 1 U nivers en-codeine 5-02 05-10 tablet by ity of 300-60 mg 00:00: [...] [place] mg 00 :00 dose, On Medical Thu11/17/22 Branch at 1845, Routine ondansetron 2022- No [...] Yes 2mg 2 mg, Slow Univers mg/mL) 08-02 IV Push, ity of injection 2 03:29: [...] 1-13 by mouth ity of 23:49: daily. [address] omega-3 0 Yes 1g Take 1 [...] ity of 23:49: every 8 [place] [id number] (eight) Medical hours as Branch needed. pantoprazol 2022-0 Yes 40mg Take 40 mg Univers e 40 mg EC 1-13 by mouth ity o f tablet 23:49: daily. [address] MULTIVITAMI Yes 1{tbl} Take 1 Tab Univers N ORAL 1-13 by mouth ity of 23:49: daily. [address] omega-3 0 Yes 1g Take 1 g Univer s fatty 1-13 by mouth ity of acids-vitam 23:49: [place]. [place] in E (FISH 34 Medical OIL) 1,000 Branch mg capsule loratadine 0 Yes Take by [facility] [place] [facility] ers (CLARITIN 1-13 mouth ity of LIQUI-GEL) 23:49: daily. [place] 10 mg 34 Medical capsule Branch ondansetron 2022-0 Yes 4mg Take 4 mg U nivers 4 mg tablet 1-13 by mouth ity of 23:49: every 8 [place] [id number] (eight) Medical hours as Branch needed. pantoprazol 2022-0 Yes 40mg Take 40 mg Univers e 40 mg EC 1-13 by mouth ity o f tablet 23:49: daily. [address] MULTIVITAMI 0 Yes 1{tbl} Take 1 Tab Univers N ORAL 1-13 by mouth ity of 23:49: daily. [address] omega-3 0 Yes 1g Take 1 [...] ity of 23:49: every 8 [place] [id number] (eight) Medical hours as Branch needed. pantoprazol 2022-0 Yes 40mg Take 40 mg Univers e 40 mg EC 1-13 by mouth ity o f tablet 23:49: daily. [address] MULTIVITAMI Yes 1{tbl} Take 1 Tab Univers N ORAL 1-13 by mouth ity of 23:49: daily. [address] omega-3 0 Yes 1g Take 1 g Univer s fatty 1-13 by mouth ity of acids-vitam 23:49: daily. [place] in [place] (FISH 34 Medical OIL) 1,000 Branch mg capsule loratadine 0 Yes Take by [facility] [place] [facility] ers (CLARITIN 1-13 mouth ity of LIQUI-GEL) 23:49: daily. [place] 10 mg 34 Medical capsule Branch ondansetron 0 Yes 4mg Take 4 mg U nivers 4 mg tablet 1-13 by mouth ity of 23:49: every 8 [place] [id number] (eight) Medical hours as Branch needed. pantoprazol 2022-0 Yes 40mg Take 40 mg Univers e 40 mg EC 1-13 by mouth ity o f tablet 23:49: daily. [address] MULTIVITAMI Yes 1{tbl} Take 1 Tab Univers N ORAL 1-13 by mouth ity of 23:49: daily. [address] omega-3 0 Yes 1g Take 1 g Univer s fatty 1-13 by mouth ity of acids-vitam 23:49: daily. [place] in E (FISH 34 Medical OIL) 1,000 Branch mg capsule loratadine 2023-0 Yes Take by Univ ers (CLARITIN -13 mouth ity of LIQUI-GEL) 23:49: daily. [place] 10 34 Medical capsule Branch ondansetron 2022-0 Yes 4mg Take 4 mg U nivers 4 mg tablet 13 by mouth ity of 23:49: every 8 [place] [id number] (eight) Medical hours as Branch needed. pantoprazol 2022-0 Yes 40mg Take 40 mg Univers e 40 mg EC 13 by mouth ity o f tablet 23:49: daily. [place] [id number] Medical Branch benzonatate 2022-0 Yes 100mg 100 [...] Shortness of Breath sulfur 3-0 2023- No [id number] 5mL 5 mL, Unive rs hexafluorid 08-01-13 Intravenou i ty of e microsphr 17:00: 17:00 s, ONCE, 1 [place] (LUMASON) 00 :00 dose, On Medica l injection 5 Fri Branch mL 08/01/22 at 1100, Routine
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 Restricted medication : WOODY MONTEZ pantoprazol 2022-0 Yes 40mg 40 mg, Univ ers e -13 Oral, ity of (PROTONIX) 15:00: DAILY, [place] EC tablet 00 First dose Medi kwame 40 mg on Thu Branch 08/01/22 at 0900, Until Discontinu ed, Routine aspirin 0 Yes 81mg 81 mg, Univers chewable 08-01 Oral, ity of tablet 81 15:00: DAILY, [place] mg 00 First dose Medical on Thu Branch 08/01/22 at 0900, Until Discontinu ed, Routine amLODIPine 0 Yes 10mg 10 mg, Unive rs (NORVASC) 08-01 Oral, ity of tablet 10 15:00: DAILY, [place] mg 00 First dose Medical on Thu Branch 08/01/22 at 0900, Until Discontinu ed, Routine levETIRAcet 2022- No 500mg 500 mg, U nivers am (KEPPRA) 08-01 Oral, BID, i ty of tablet 500 14:00: 23:56 First dose [place] mg 00 :35 on Thu Medical 08/01/22 at Branch 0800, Until Discontinu [...] 1 Medical 1,000 dose, On mg/100 mL Fri RTU 08/01/22 at 0045, Administer over 15 Minutes, 100 mL LORazepam 0 Yes 1mg 1 mg, Slow Un lois (ATIVAN) 08-01 IV Push, ity of injection 1 05:52: Q4HPRN, [place] as mg 54 Starting Medical on Thu Branch 07/31/22 at 2352, Until Discontinu ed, Routine, Seizures, Agitation, Anxiety, ETOH / Cocaine Withdrawl foLIC acid 2022-0 Yes 1mg 1 mg, Univer s (FOLATE) 08-01 Oral, it[place] of tablet 1 mg 05:45: [place] 00 First dose Medical on [facility] Branch 07/31/22 at 2345, Until Discontinu ed, Routine thiamine 2022-0 Yes 100mg 100 mg, Unive rs (VITAMIN -13 Oral, ity of B1) tablet 05:45: DAILY, [place] 100 mg 00 First dose Medical on [facility] Branch 07/31/22 at 2345, Until Discontinu ed, Routine LORazepam 2022- No .5mg 0.5 mg, Univ ers (ATIVAN) 08-01 Slow IV ity of injection 05:30: 05:29 Push, [place] 0.5 mg 00 :00 ONCE, 1 Medical dose, On Branch [facility] 07/31/22 at 2330, MICHAEL atorvastati 0 Yes 40mg 40 mg, Univ ers n (LIPITOR) 08-01 Oral, QHS, it y of tablet 40 03:00: First dose [place] mg 00 on [facility] 07/31/22 at Branch 2100, Until Discontinu [...] 40 mg 00 First dose Medical on [facility] 07/31/22 at 1700, Until Discontinu ed, Routine morpHINE (2 2022- No 2mg 2 mg, Slow Univers mg/mL) 07-31 IV Push, ity of injection 2 23:00: 22:29 ONCE, 1 [place] mg 00 :00 dose, On Medical [facility] Branch 07/31/22 at 1700, Routine HYDROcodone 2022-0 [...] :34 Starting Medi kwame tablet 1 on [facility] Branch tablet 07/31/22 at 1601, Until 08/02/22 [...] [place] Branch 07/31/22 at 1500, MICHAEL furosemide Yes 40mg 40 mg, Unive rs (LASIX) 07-31 Slow IV ity of injection 20:15: Push, [place] 40 mg 00 Q12H, Medical First dose Branch on [facility] 07/31/22 at 1415, Until Discontinu ed, Routine methylpredn 2022-2022- No 125mg 125 mg, U nivers isolone sod 07-31 Slow IV ity of succ 19:30: 18:54 Push, ONCE [place] (SOLU-MEDRO 00 :00 NOW, 1 Medica l L) dose, On Branch injection [facility] 125 mg 07/31/22 at 1330, MICHAEL ipratropium 2022- No 3mL 3 mL, Univ ers -albuteroL -07-31 Inhalation it y of (DUONEB) 19:30: 18:48 , ONCE, 1 [place] as 0.5 mg-3 00 :00 dose, On Medical mg(2.5 mg [facility] Branch base)/3 mL 07/31/22 at nebulizer 1330, MICHAEL solution 3 mL pantoprazol Yes 40mg Take 40 mg Univers e 40 mg EC -12 by mouth ity o f tablet 17:15: daily. [place] 40 [facility] Branch MULTIVITAMI Yes 1{tbl} Take 1 Tab Univers N ORAL 1-12 by mouth ity of 15:50: daily. [place] 57 [facility] Branch loratadine Yes Take by [facility] [place] [facility] ers (CLARITIN 12 mouth ity of LIQUI-GEL) 15:50: daily. [place] 10 mg 57 Medical capsule Branch ondansetron Yes 4mg Take 4 mg U nivers 4 mg tablet -12 by mouth ity of 15:50: every 8 [place] 57 (eight) Medical hours as Branch needed. omega-3 Yes 1g Take 1 g Univer s fatty 1-12 by mouth ity of acids-vitam 15:21: daily. [place] in E (FISH 27 Medical OIL) 1,000 Branch mg capsule TAKE ONE No (1) 1-09 TABLET(S) 00:00: BY MOUTH 00 THREE TIMES A DAY NEEDED. Methylpredn 2021-07- No [id number] 4mg Take 1 Univers isolone 4 0-22 10-24 tablet ity of mg tablet 00:00: 04:59 through [place] 00 :00 enteral Medical tube in Branch the morning for 1 dose. Methylpredn 2021-07- No [id number] 4mg Take 1 Univers isolone 4 0-21 10-23 tablet ity of mg tablet 00:00: 04:59 through [place] 00 :00 enteral Medical tube every Branch 12 (twelve) hours for 2 doses. MULTIVITAMI 2021-07 Yes 1{tbl} Take 1 Tab Univers N ORAL 0-20 by mouth ity of 14:44: daily. [place] 48 [facility] Branch omega-3 2021-07 Yes 1g Take 1 g Univer s fatty 0-20 by mouth ity of acids-vitam 14:44: daily. [place] in [place] (FISH 48 Medical OIL) 1,000 Branch mg capsule loratadine 2021-07 Yes Take by [facility] [place] [facility] ers (CLARITIN 0-20 mouth ity of LIQUI-GEL) [...] [place] mg 00 First dose Medical on [facility] Branch 05/08/22 at 0900, Until Discontinu ed, Routine divalproex 2021-07 Yes 1000mg 1,000 mg, Univers (DEPAKOTE) 0-20 Oral, BID, ity of EC tablet 13:00: First dose [place] 1,000 mg 00 (after Medical last Branch modificati on) on [facility] 05/08/22 at 0800, Until Discontinu ed, Routine Methylpredn 2021-07 No 4mg 4 mg, [facility] [place] [facility] ers isolone 0-20 10-21 Oral, Q8H ity of (MEDROL) 08:50: 08:59 TAPER, 3 [place] tablet 4 mg 10 :00 doses, Medica l First dose Branch on [facility] 05/08/22 at 0400, Last dose on [facility] [...] Discontinu ed, Routine, Anxiety cyclobenzap 2021-07 Yes [id number] 5mg Take 1 Univers rine 5 mg 0-20 tablet by ity o f tablet 00:00: mouth in [place] [address] the Medical morning Branch and 1 tablet at noon and 1 tablet in the evening. cyclobenzap 2021-07 Yes [id number] 5mg Take 1 Univers rine 5 mg 0-20 tablet by ity o f tablet 00:00: mouth in [place] [address] the Medical morning Branch and 1 tablet at noon and 1 tablet in the evening. cyclobenzap 2021-07 Yes [id number] 5mg Take 1 Univers rine 5 mg 0-20 tablet by ity o f tablet 00:00: mouth in [place] [address] the Medical morning Branch and 1 tablet at noon and 1 tablet in the evening. cyclobenzap 2021-07 Yes [id number] 5mg Take 1 Univers rine 5 mg 0-20 tablet by ity o f tablet 00:00: mouth in [place] [address] the Medical morning Branch and 1 tablet at noon and 1 tablet in the evening. cyclobenzap 2021-07 Yes [id number] 5mg Take 1 Univers rine 5 mg 0-20 tablet by ity o f tablet 00:00: mouth in [place] [address] the Medical morning Branch and 1 tablet at noon and 1 tablet in the evening. cyclobenzap 2021-07 Yes [id number] 5mg Take 1 Univers rine 5 mg 0-20 tablet by ity o f tablet 00:00: mouth in [place] [address] the [facility] morning Branch and 1 tablet at noon and 1 tablet in the evening. cyclobenzap 2021-07 Yes [id number] 5mg Take 1 Univers rine 5 mg 0-20 tablet by ity o f tablet 00:00: mouth in [place] [address] the Medical morning Branch and 1 tablet at noon and 1 tablet in the evening. DULoxetine 2021-07- No [id number] 60mg Take 2 Univers (CYMBALTA) 0-20 11-20 capsules ity of 30 mg 00:00: 05:59 by mouth [place] capsule 00 :00 in the Medical morning Branch for 30 days. divalproex 2021-07- No [id number] 750mg Take 3 Univers (DEPAKOTE) 0-20 11-20 tablets by it y of 250 mg EC 00:00: 05:59 mouth [place] tablet 00 :00 every 8 Medical (eight) Branch hours for 30 days. LORazepam 1 2021-07- No [id number] 1mg Take 1 Univers mg tablet 0-20 [...] Indication s: acute pain Methylpredn 2021-07- No [id number] 4mg Take 1 Univers isolone 4 0-20 [...] (after Medical last Branch modificati on) on [facility] 05/06/22 at 0800, Until Discontinu ed, Routine levETIRAcet 2021-07 No 1000mg 1,000 mg, Univers am (KEPPRA) 005-06 IV ity of in NACL 05:00: 05:46 Piggyback, [place] as (ISO-OS) 00 :00 ONCE, 1 Medical 1,000 dose, On [place] mg/100 mL Tue RTU 05/06/22 at 0000, Administer over 15 Minutes, 100 mL methocarbam 2021-07 No 500mg 500 mg, U nivers oL 05-06 Oral, QID, ity of (ROBAXIN) 02:15: 23:21 First dose [place] tablet 500 00 :42 on [facility] mg 05/05/22 Branch at 2115, Until Discontinu ed, Routine LORazepam 2021-07 No 2mg 2 mg, Univer s (ATIVAN) 05-06 Oral, ity of tablet 2 mg 01:30: 01:03 ONCE, 1 [place] 00 :00 dose, On Medical [facility] 05/05/22 at 2030, Routine levETIRAcet 2021-07 No 1000mg 1,000 mg, Univers am (KEPPRA) 05-06 Oral, BID, i ty of tablet 01:00: 04:48 First dose [place] 1,000 mg 00 :06 on [facility] 05/05/22 Branch at 2000, Until Discontinu ed, Routine enoxaparin 2021-07 Yes 40mg 40 mg, Unive rs (LOVENOX) 018 Subcutaneo ity of injection 00:15: us, Q24H, [place] as 40 mg 00 First dose Medical on [facility] 05/05/22 at 1915, Until Discontinu ed, Routine levETIRAcet 2021-07 No 1000mg 1,000 mg, Univers am (KEPPRA) 05-05 IV ity of in NACL 19:45: 20:05 Piggyback, [place] as (ISO-OS) 00 :00 ONCE, 1 Medical 1,000 dose, On [place] mg/100 mL [facility] RTU 05/05/22 at 1445, Administer over 15 Minutes, 100 mL clonazePAM 2021-07 Yes .5mg 0.5 mg, Univ ers (KLONOPIN) 0-17 Oral, BID, ity of tablet 0.5 19:30: First dose [place] mg 00 on [facility] 05/05/22 Branch at 1430, Until Discontinu ed, Routine ibuprofen 2021-07 Yes 600mg 600 mg, Univ ers (IBU) 0-17 Oral, TID ity of tablet 600 19:30: MEALS, [place] mg 00 First dose Medical on [facility] 05/05/22 at 1430, Until Discontinu ed, Routine gabapentin 2021-07 Yes 300mg 300 mg, Uni vers (NEURONTIN) 0-17 Oral, TID, it y of capsule 300 19:30: First dose [place] mg 00 on [facility] 05/05/22 Branch at 1430, Until Discontinu ed, Routine cyclobenzap 2021-07 Yes 5mg 5 mg, Unive rs rine 0-17 Oral, TID, ity of (FLEXERIL) 19:30: First dose [place] tablet 5 mg 00 on [facility] Medica l 05/05/22 Branch at 1430, Until Discontinu ed, Routine acetaminoph 2021-07 Yes 1000mg 1,000 mg, Univers en 0-17 Oral, Q8H, ity of (TYLENOL) 19:30: First dose [place] tablet 00 on [facility] 1,000 mg 05/05/22 Branch at 1430, Until Discontinu ed, Routine pantoprazol 2021-07 Yes 40mg 40 mg, Univ ers e 0-17 Oral, ity of (PROTONIX) 14:00: DAILY, [place] EC tablet 00 First dose Medi kwame 40 mg on [facility] 05/05/22 at 0900, Until Discontinu ed, Routine docusate 2021-07 Yes 100mg 100 mg, Unive rs (COLACE) 0-17 Oral, ity of capsule 100 14:00: DAILY, [place] mg 00 First dose Medical on [facility] 05/05/22 at 0900, Until Discontinu ed, Routine HYDROcodone 2021-07- No 1{tbl} 1 tablet, Univers -acetaminop 0-17 10-17 Oral, ity of hen (NORCO) 10:32: 19:18 Q6HPRN, [place] 10-325 mg 02 :52 Starting Medica l tablet 1 on [facility] tablet 05/05/22 at 0532, Until 05/05/22 at 1418, Routine, Pain (scale 7-10) [...] :14 Starting Medi kwame tablet 1 on [facility] tablet 05/05/22 at 0149, Until 05/05/22 at 0532, Routine, Pain (scale 7-10) acetaminoph 2021-07 No 325mg 325 mg, U nivers en 005-05 Oral, ity of (TYLENOL) 06:49: 19:18 Q4HPRN, [place] tablet 325 39 :52 Starting Medic al mg on [facility] Branch 05/05/22 at 0149, Until 05/05/22 at 1418, Routine, Pain (scale 4-6) ondansetron 2021-07 No 4mg 4 mg, Univ ers (ZOFRAN) 005-05 Oral, ity of tablet 4 mg 04:00: 03:26 ONCE, 1 [place] 00 :00 dose, On [facility] 05/04/22 at 2300, Routine morpHINE (2 2021-07 No 2mg 2 mg, Slow Univers mg/mL) 005-05 IV Push, ity of injection 2 04:00: 03:26 ONCE, 1 [place] mg 00 :00 dose, On [facility] 05/04/22 at 2300, Routine aspirin 81 2021-0 Yes [id number] 81mg Take 1 U nivers mg chewable 9-28 tablet by ity of tablet 00:00: mouth in [place] 00 the Medical morning. Branch aspirin 81 2021-0 Yes [id number] 81mg Take 1 U nivers mg chewable 9-28 tablet by ity of tablet 00:00: mouth in [place] 00 the Medical morning. Branch aspirin 81 0 Yes [id number] 81mg Take 1 U nivers mg chewable 9-28 tablet by ity of tablet 00:00: mouth in [place] the Medical morning. Branch aspirin 81 0 Yes [id number] 81mg Take 1 U nivers mg chewable 9-28 tablet by ity of tablet 00:00: mouth in [place] the Medical morning. Branch aspirin 81 0 Yes [id number] 81mg Take 1 U nivers mg chewable 9-28 tablet by ity of tablet 00:00: mouth in [place] 00 the Medical morning. Branch aspirin 81 0 Yes [id number] 81mg Take 1 U nivers mg chewable 9-28 tablet by ity of tablet 00:00: mouth in [place] the Medical morning. Branch aspirin 81 0 Yes [id number] 81mg Take 1 U nivers mg chewable 9-28 tablet by ity of tablet 00:00: mouth in [place] the Medical morning. Branch aspirin 81 0 Yes [id number] 81mg Take 1 U nivers mg chewable 9-28 tablet by ity of tablet 00:00: mouth in [place] 00 the Medical morning. Branch MULTIVITAMI Yes 1{tbl} Take 1 Tab Univers N ORAL 9- by mouth ity of 17:39: daily. [place] 14 Medical Branch omega-3 Yes 1g Take 1 g Univer s fatty - by mouth ity of acids-vitam 17:39: daily. [place] in [place] (FISH 14 Medical OIL) 1,000 Branch mg capsule loratadine Yes Take by Univ ers (CLARITIN - mouth ity of LIQUI-GEL) 17:39: daily. [place] 10 mg 14 Medical capsule Branch ondansetron Yes 4mg Take 4 mg U nivers (ZOFRAN) 4 - by mouth ity o f mg tablet 17:39: every 8 [place] 14 (eight) Medical hours as Branch needed. pantoprazol Yes 40mg Take 40 mg Univers e 9-27 by mouth ity of (PROTONIX) 17:39: daily. [place] 40 mg EC 14 Medical tablet Branch [...] (after Medical last Branch modificati on) on [facility] 04/14/22 at 2145, Until Discontinu ed, Routine ketorolac 2021- No 15mg 15 mg, Unive rs (TORADOL) 04-15 Slow IV ity of injection 02:13: 02:22 Push, [place] 15 mg 00 :00 ONCE, 1 Medical dose, On Branch 04/14/22 at 2115, Routine levETIRAcet Yes [id number] 1000mg Take 1 Univers am 1,000 mg 04-15 tablet by ity of tablet 00:00: mouth in [place] 00 the Medical morning Branch and 1 tablet in the evening. atorvastati Yes [id number] 40mg Take 1 Univers n 40 mg 04-15 tablet by ity of tablet 00:00: mouth at [place] [address] bedtime. Medical Branch atorvastati Yes [id number] 40mg Take 1 Univers n 40 mg 9-27 tablet by ity of tablet 00:00: mouth at [place] 00 bedtime. Medical Branch atorvastati Yes [id number] 40mg Take 1 Univers n 40 mg 9-27 tablet by ity of tablet 00:00: mouth at [place] [address] bedtime. Medical Branch atorvastati Yes [id number] 40mg Take 1 Univers n 40 mg 9-27 tablet by ity of tablet 00:00: mouth at [place] [address] bedtime. Medical Branch atorvastati Yes [id number] 40mg Take 1 Univers n 40 mg 9-27 tablet by ity of tablet 00:00: mouth at [place] 00 bedtime. Medical Branch atorvastati Yes [id number] 40mg Take 1 Univers n 40 mg 9-27 tablet by ity of tablet 00:00: mouth at [place] [address] bedtime. Medical Branch atorvastati Yes [id number] 40mg Take 1 Univers n 40 mg 9-27 tablet by ity of tablet 00:00: mouth at [place] [address] bedtime. Medical Branch atorvastati Yes [id number] 40mg Take 1 Univers n 40 mg 9-27 tablet by ity of tablet 00:00: mouth at [place] [address] bedtime. Medical Branch levETIRAcet 2021- No [id number] 1000mg Take 1 Univers am 1,000 mg 9-27 10-20 tablet by it y of tablet 00:00: 00:00 mouth in [place] 00 :00 the Medical morning Branch and 1 tablet in the evening. lidocaine 5 2021- No [id number] 1{patch Apply 1 Univers % (700 9-27 [...] 12 Medical patch 1 Hours, Branch Patch [id number], Starting on Thu04/14/22 at 1645, Until Discontinu [...] Pain (scale 7-10), Pain (scale 4-6) sulfur 2- No [id number] 5mL 5 mL, Univ ers hexafluorid 04-14 Intravenou i ty of e microsphr 16:45: 16:45 s, ONCE, 1 [place] (LUMASON) 00 :00 dose, On Medica l injection 5 Thu Branch mL 04/14/22 at 1145, Routine
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 Restricted medication : GERSON [...] First dose Medi kwame 40 mg on [facility] 04/14/22 at 0900, Until Discontinu ed, Routine atorvastati Yes 40mg 40 mg, Univ ers n (LIPITOR) 04-14 Oral, QHS, it y of tablet 40 02:00: First dose [place] mg 00 on [facility] 04/13/22 at Branch 2100, Until Discontinu ed, Routine LORazepam 2021- No 1mg 1 mg, Univer s (ATIVAN) 04-14 Oral, ity of tablet 1 mg 01:30: 01:45 ONCE, 1 [place] 00 :00 dose, On [facility] 04/13/22 at 2030, Routine methocarbam Yes 500mg 500 mg, Un lois oL 04-14 Oral, QID, ity of (ROBAXIN) 01:00: First dose [place] tablet 500 00 on [facility] 04/13/22 at Branch 2000, Until Discontinu ed, Routine heparin Yes 5000U 5,000 Univers (porcine) 04-14 Units, ity of injection 01:00: Subcutaneo [place] 5,000 Units 00 us, Q12H, Med ical First dose Branch on [place] 04/13/22 at 2000, Until Discontinu ed, Routine acetaminoph 2021- No 650mg 650 mg, U nivers en 04-14 Oral, ity of (TYLENOL) 00:23: 21:29 Q6HPRN, [place] tablet 650 25 :42 Starting Medic al mg on [facility] 04/13/22 at 1923, Until [facility] 04/14/22 at 1629, Routine, Pain (scale 1-3), Pain (scale 4-6), Temp > 38.5 C, Temp > 37.5 C lidocaine 2021- No 1{patch 1 Patch, Univers (LIDODERM) 04-14 } Topical, ity of 5 % (700 00:22: 13:51 Administer [place] mg/patch) 00 :00 over 12 Medical patch 1 Hours, Branch Patch ONCE, 1 dose, On 04/13/22 at 1930, Routine FENTanyl PF No 50ug 50 mcg, Un lois (SUBLIMAZE 04-13 Slow IV ity o f (PF)) 20:30: 19:22 Push, [place] injection 00 :00 ONCE, 1 Medical 50 mcg dose, On Branch 04/13/22 at 1530, Routine aspirin 2021- No 650mg 650 mg, Unive rs chewable 04-13 Oral, ity of tablet 650 20:15: 20:15 ONCE, 1 [place] mg 00 :00 dose, On Medical [facility] 04/13/22 at 1515, Routine clopidogreL 2021- No 300mg 300 mg, U nivers (PLAVIX) 04-13 Oral, ity of 300 mg 20:00: 19:15 ONCE, 1 [place] tablet 300 00 :00 dose, On Medic al mg [facility] 04/13/22 at 1500, Routine ondansetron 2021- No 4mg 4 mg, Slow Univers (ZOFRAN 04-13 IV Push, ity of (PF)) 19:30: 19:22 ONCE, 1 [place] injection 4 00 :00 dose, On Medi kwame mg [facility] 04/13/22 at 1430, MICHEAL iopamidol 2021- No [id number] 100mL 100 mL, Univers (ISOVUE 04-13 Intravenou ity o f 370-500 mL) 18:31: 18:32 s, ONCE, 1 [place] injection 00 :00 dose, On Medica l 100 mL [facility] 04/13/22 at 1345, Routine NaCl 0.9% Yes 5mL 5 mL, Slow Un lois (NS) 04-13 IV Push, ity of injection 5 18:14: PRN - SEE [place] mL 11 INSTRUCTIO Medical NS, Branch Starting on [place] 04/13/22 at 1314, Until Discontinu ed, 10 mL aspirin Yes 324mg 324 mg, Univer s chewable 5-08 Oral, ity of tablet 324 14:00: DAILY, [place] mg 00 First dose Medical on [facility] 11/24/21 at 0900, Until Discontinu ed, Routine [...] hr 00:00: tablet, 00 extended release Dose 1-1 No Unknown 2-30 00:00: 00 Wellbutrin 1-1 No 1mg XL 150 mg 2-30 24 hr 00:00: tablet, 00 extended release Dose 1-1 No Unknown 2-30 00:00: 00 ibuprofen 1-1 No 1mg 800 mg 2-02 tablet 00:00: 00 ibuprofen 2020-07 No 1mg 800 mg 2-02 tablet 00:00: 00 levetiracet 2020-07 No 1mg am 500 mg 1-30 tablet 00:00: 00 Dose 2020-07 No Unknown 08-18 00:00: 00 levetiracet 2020-07 No 1mg am [...] MICHAEL nebulizer solution 3 mL NaCl 0.9% 1000mL at 999 Uni vers (NS) IV [...] 2099, MICHAEL nebulizer solution 3 mL levoFLOXaci No [id number] 500mg Take 1 Univers n 500 mg 03-17 tablet by ity o f tablet 00:00: 04:59 mouth [place] 00 :00 daily for Medical 6 days. Branch levoFLOXaci 2020- No [id number] 500mg Take 1 Univers n 500 mg 03-17 tablet by ity o f tablet 00:00: 04:59 mouth [place] 00 :00 daily for Medical 6 days. Branch levoFLOXaci 2020- No [id number] 500mg Take 1 Univers n 500 mg 03-17 tablet by ity o f tablet 00:00: 04:59 mouth [place] 00 :00 daily for Medical 6 days. Branch levoFLOXaci 2020- No [id number] 500mg Take 1 Univers n 500 mg 03-17 tablet by ity o f tablet 00:00: 04:59 mouth [place] 00 :00 daily for Medical 6 days. Branch predniSONE No [id number] 30mg Take 3 Univers 10 mg -17 04-03 tablets by ity of tablet 00:00: 04:59 mouth [place] 00 :00 daily for Medical 4 days. Branch predniSONE 2020- No [id number] 30mg Take 3 Univers 10 mg 8-17 04- tablets by ity of tablet 00:00: 04:59 mouth [place] 00 :00 daily for Medical 4 days. Branch predniSONE 2020- No [id number] 30mg Take 3 Univers 10 mg -17 04- tablets by ity of tablet 00:00: 04:59 mouth [place] 00 :00 daily for Medical 4 days. Branch predniSONE 2020- No [id number] 30mg Take 3 Univers 10 mg -17 04- tablets by ity of tablet 00:00: 04:59 mouth [place] 00 :00 daily for Medical 4 days. Branch albuterol 2020- No [id number] 4{puff} 4 Puff, Univers (VENTOLIN) 03-15 Inhalation it y of inhaler 4 01:45: 00:44 , ONCE, 1 [place] Puff 00 :00 dose, [facility] Medical 03/14/21 at [place] 2044, Routine dexamethaso No [id number] 10mg 10 mg, Univers ne 03-15 Intramuscu ity of (DECADRON) 01:45: 00:45 lar, ONCE, [place] injection 00 :00 1 dose, Medical 10 mg [place] 03/14/21 at 2044, Routine albuterol Yes [id number] 2.5mg Inhale 3 Univers 2.5 mg /3 8-27 mL every 4 ity of mL (0.083 00:00: (four) [place] %) 00 hours as Medical nebulizer needed for Bran ch solution Wheezing or Shortness of Breath. albuterol Yes [id number] 2.5mg Inhale 3 Univers 2.5 mg /3 8-27 mL every 4 ity of mL (0.083 00:00: (four) [place] %) 00 hours as Medical nebulizer needed for Bran ch solution Wheezing or Shortness of Breath. albuterol Yes [id number] 2.5mg Inhale 3 Univers 2.5 mg /3 8-27 mL every 4 ity of mL (0.083 00:00: (four) [place] %) 00 hours as Medical nebulizer needed for Bran ch solution Wheezing or Shortness of Breath. albuterol 2020-0 Yes [id number] 2.5mg Inhale 3 Univers 2.5 mg /3 8-27 mL every 4 ity of mL (0.083 00:00: (four) [place] %) 00 hours as Medical nebulizer needed for Bran ch solution Wheezing or Shortness of Breath. albuterol 2020-0 Yes [id number] 2.5mg Inhale 3 Univers 2.5 mg /3 8-27 mL every 4 ity of mL (0.083 00:00: (four) [place] %) 00 hours as Medical nebulizer needed for Bran ch solution Wheezing or Shortness of Breath. albuterol 2020-0 Yes [id number] 2.5mg Inhale 3 Univers 2.5 mg /3 8-27 mL every 4 ity of mL (0.083 00:00: (four) [place] %) 00 hours as Medical nebulizer needed for Bran ch solution Wheezing or Shortness of Breath. albuterol 2020-0 Yes [id number] 2.5mg Inhale 3 Univers 2.5 mg /3 8-27 mL every 4 ity of mL (0.083 00:00: (four) [place] %) 00 hours as Medical nebulizer needed for Bran ch solution Wheezing or Shortness of Breath. albuterol 2020-0 Yes [id number] 2.5mg Inhale 3 Univers 2.5 mg /3 8-27 mL every 4 ity of mL (0.083 00:00: (four) [place] %) 00 hours as Medical nebulizer needed for Bran ch solution Wheezing or Shortness of Breath. albuterol 2020-0 Yes [id number] 2.5mg Inhale 3 Univers 2.5 mg /3 8-27 mL every 4 ity of mL (0.083 00:00: (four) [place] %) 00 hours as Medical nebulizer needed for Bran ch solution Wheezing or Shortness of Breath. albuterol 2020-0 Yes [id number] 2.5mg Inhale 3 Univers 2.5 mg /3 8-27 mL every 4 ity of mL (0.083 00:00: ([facility] [place] %) 00 hours as Medical nebulizer needed for Bran ch solution Wheezing or Shortness of Breath. albuterol 2020-0 Yes [id number] 2.5mg Inhale 3 Univers 2.5 mg /3 8-27 mL every 4 ity of mL (0.083 00:00: ([facility] [place] %) 00 hours as Medical nebulizer needed for Bran ch solution Wheezing or Shortness of Breath. albuterol 2020-0 Yes [id number] 2.5mg Inhale 3 Univers 2.5 mg /3 8-27 mL every 4 ity of mL (0.083 00:00: ([facility] [place] %) 00 hours as Medical nebulizer needed for Bran ch solution Wheezing or Shortness of Breath. albuterol 2020-0 Yes [id number] 2.5mg Inhale 3 Univers 2.5 mg /3 8-27 mL every 4 ity of mL (0.083 00:00: ([facility] [place] %) 00 hours as Medical nebulizer needed for Bran ch solution Wheezing or Shortness of Breath. albuterol 2020-0 Yes [id number] 2.5mg Inhale 3 Univers 2.5 mg /3 8-27 mL every 4 ity of mL (0.083 00:00: ([facility] [place] %) 00 hours as Medical nebulizer needed for Bran ch solution Wheezing or Shortness of Breath. albuterol 2020-0 Yes [id number] 2.5mg Inhale 3 Univers 2.5 mg /3 8-27 mL every 4 ity of mL (0.083 00:00: (four) [place] %) 00 hours as Medical nebulizer needed for Bran ch solution Wheezing or Shortness of Breath. albuterol 2020-0 Yes [id number] 2.5mg Inhale 3 Univers 2.5 mg /3 8-27 mL every 4 ity of mL (0.083 00:00: (four) [place] %) 00 hours as Medical nebulizer needed for Bran ch solution Wheezing or Shortness of Breath. albuterol 2020-0 Yes [id number] 2.5mg Inhale 3 Univers 2.5 mg /3 8-27 mL every 4 ity of mL (0.083 00:00: (four) [place] %) 00 hours as Medical nebulizer needed for Bran ch solution Wheezing or Shortness of Breath. albuterol Yes [id number] 2.5mg Inhale 3 Univers 2.5 mg /3 [...] (KEPPRA 8-03 mouth. ity of ORAL) 19:45: [address] levetiracet Yes Take by Uni vers am (KEPPRA 8-03 mouth. ity of ORAL) 19:45: [address] levetiracet 0 Yes Take by Uni vers am (KEPPRA 8-03 mouth. ity of ORAL) 19:45: [address] levetiracet Yes Take by Uni vers am (KEPPRA 8-03 mouth. ity of ORAL) 19:45: [address] levetiracet Yes Take by Uni vers am (KEPPRA 8-03 mouth. ity of ORAL) 19:45: [address] levetiracet 0 Yes Take by Uni vers am (KEPPRA 8-03 mouth. ity of ORAL) 19:45: [address] LISINOPRIL- 2020- No Take by Un lois HYDROCHLORO 02-19 mouth. ity o f THIAZIDE 19:41: 00:00 [place] ORAL 15 :00 Medical [place] dicyclomine 2020- No 20mg 20 mg, Uni [...] Tue Medica l NaCl 0.9% 02/19/21 at [facility] h (NS) 50 mL 1415, [...] 1,000 mL 00 :00 IV Medical Infusion, [place] ONCE, 1 dose, 02/19/21 at 1215, STAT ondansetron 2020- No 4mg 4 mg, Slow Univers (ZOFRAN 02-19 IV Push, ity of (PF)) 17:00: 15:59 ONCE, 1 [place] injection 4 00 :00 dose, Tue Med ical mg 02/19/21 at Branch 1200, MICHAEL iopamidol 2020- No [id number] 100mL 100 mL, Univers (ISOVUE 02-19 Intravenou ity o f 370-500 mL) 16:35: 16:45 s, ONCE, 1 [place] injection 00 :00 dose, Tue Medic al 100 mL 02/19/21 at Branch 1145, Routine levetiracet Yes Take by Uni vers am (KEPPRA 8-03 mouth. ity of ORAL) 14:45: [address] levetiracet Yes Take by Uni vers am (KEPPRA 8-03 mouth. ity of ORAL) 14:45: [address] levetiracet 2021-0 Yes Take by Uni vers am (KEPPRA 8-03 mouth. ity of ORAL) 14:45: [address] Branch levetiracet 2020-0 Yes Take by Uni vers am (KEPPRA 8-03 mouth. ity of ORAL) 14:45: [address] levetiracet 2020-0 Yes Take by Uni vers am (KEPPRA 8-03 mouth. ity of ORAL) 14:45: [address] Branch proMETHazin 2020-0 Yes [id number] 25mg Take 1 Univers e 25 mg 8-03 tablet by ity of tablet 00:00: mouth [place] 00 every 6 Medical (six) Branch hours as needed for Nausea and Vomiting (N/V). dicyclomine 2020-0 Yes [id number] 20mg Take 1 Univers 20 mg 8-03 tablet by ity of tablet 00:00: mouth 4 [place] 00 (four) Medical times Branch daily as needed for Abdominal pain. proMETHazin 2020-0 Yes [id number] 25mg Take 1 Univers e 25 mg 8-03 tablet by ity of tablet 00:00: mouth [place] 00 every 6 Medical (six) Branch hours as needed for Nausea and Vomiting (N/V). dicyclomine 2020-0 Yes [id number] 20mg Take 1 Univers 20 mg 8-03 tablet by ity of tablet 00:00: mouth 4 [place] 00 (four) Medical times Branch daily as needed for Abdominal pain. proMETHazin 2020-0 Yes [id number] 25mg Take 1 Univers e 25 mg 8-03 tablet by ity of tablet 00:00: mouth [place] 00 every 6 Medical (six) Branch hours as needed for Nausea and Vomiting (N/V). dicyclomine 2020-0 Yes [id number] 20mg Take 1 Univers 20 mg 8-03 tablet by ity of tablet 00:00: mouth 4 [place] 00 (four) Medical times Branch daily as needed for Abdominal pain. proMETHazin 2020-0 Yes [id number] 25mg Take 1 Univers e 25 mg 8-03 tablet by ity of tablet 00:00: mouth [place] 00 every 6 Medical (six) Branch hours as needed for Nausea and Vomiting (N/V). dicyclomine 2020-0 Yes [id number] 20mg Take 1 Univers 20 mg 8-03 tablet by ity of tablet 00:00: mouth 4 (four) Medical times Branch daily as needed for Abdominal pain. proMETHazin 2020-0 Yes [id number] 25mg Take 1 Univers e 25 mg 8-03 tablet by ity of tablet 00:00: mouth [place] 00 every 6 Medical (six) Branch hours as needed for Nausea and Vomiting (N/V). dicyclomine 2020-0 Yes [id number] 20mg Take 1 Univers 20 mg 8-03 tablet by ity of tablet 00:00: mouth (four) Medical times Branch daily as needed for Abdominal pain. proMETHazin 2020-0 Yes [id number] 25mg Take 1 Univers e 25 mg 8-03 tablet by ity of tablet 00:00: mouth [place] 00 every 6 Medical (six) Branch hours as needed for Nausea and Vomiting (N/V). dicyclomine 2020-0 Yes [id number] 20mg Take 1 Univers 20 mg 8-03 tablet by ity of tablet 00:00: mouth (four) Medical times Branch daily as needed for Abdominal pain. proMETHazin 2020-0 Yes [id number] 25mg Take 1 Univers e 25 mg 8-03 tablet by ity of tablet 00:00: mouth [place] 00 every 6 Medical (six) Branch hours as needed for Nausea and Vomiting (N/V). dicyclomine 2020-0 Yes [id number] 20mg Take 1 Univers 20 mg 8-03 tablet by ity of tablet 00:00: mouth (four) Medical times Branch daily as needed for Abdominal pain. proMETHazin 2020-0 Yes [id number] 25mg Take 1 Univers e 25 mg 8-03 tablet by ity of tablet 00:00: mouth [place] 00 every 6 Medical (six) Branch hours as needed for Nausea and Vomiting (N/V). dicyclomine 202-0 Yes [id number] 20mg Take 1 Univers 20 mg 8-03 tablet by ity of tablet 00:00: mouth 4 00 (four) Medical times Branch daily as needed for Abdominal pain. proMETHazin 2020-0 Yes [id number] 25mg Take 1 Univers e 25 mg 8-03 tablet by ity of tablet 00:00: mouth [place] 00 every 6 Medical (six) Branch hours as needed for Nausea and Vomiting (N/V). dicyclomine 2021-0 Yes [id number] 20mg Take 1 Univers 20 mg 8-03 tablet by ity of tablet 00:00: mouth 4 00 (four) Medical times Branch daily as needed for Abdominal pain. proMETHazin 202-0 Yes [id number] 25mg Take 1 Univers e 25 mg 8-03 tablet by ity of tablet 00:00: mouth [place] 00 every 6 Medical (six) Branch hours as needed for Nausea and Vomiting (N/V). dicyclomine 2020-0 Yes [id number] 20mg Take 1 Univers 20 mg 8-03 tablet by ity of tablet 00:00: mouth 00 (four) Medical times Branch daily as needed for Abdominal pain. proMETHazin 2020-0 Yes [id number] 25mg Take 1 Univers e 25 mg 8-03 tablet by ity of tablet 00:00: mouth [place] 00 every 6 Medical (six) Branch hours as needed for Nausea and Vomiting (N/V). dicyclomine 2020-0 Yes [id number] 20mg Take 1 Univers 20 mg 8-03 tablet by ity of tablet 00:00: mouth 00 (four) Medical times Branch daily as needed for Abdominal pain. proMETHazin 2020-0 Yes [id number] 25mg Take 1 Univers e 25 mg 8-03 tablet by ity of tablet 00:00: mouth [place] 00 every 6 Medical (six) Branch hours as needed for Nausea and Vomiting (N/V). dicyclomine 1-0 Yes [id number] 20mg Take 1 Univers 20 mg 8-03 tablet by ity of tablet 00:00: mouth 00 (four) Medical times Branch daily as needed for Abdominal pain. proMETHazin 2021-0 Yes [id number] 25mg Take 1 Univers e 25 mg 8-03 tablet by ity of tablet 00:00: mouth [place] 00 every 6 Medical (six) Branch hours as needed for Nausea and Vomiting (N/V). dicyclomine 2021-0 Yes [id number] 20mg Take 1 Univers 20 mg 8-03 tablet by ity of tablet 00:00: mouth 4 00 (four) Medical times Branch daily as needed for Abdominal pain. proMETHazin 2021-0 Yes [id number] 25mg Take 1 Univers e 25 mg 8-03 tablet by ity of tablet 00:00: mouth [place] 00 every 6 Medical (six) Branch hours as needed for Nausea and Vomiting (N/V). dicyclomine 2020-0 Yes [id number] 20mg Take 1 Univers 20 mg 8-03 tablet by ity of tablet 00:00: mouth 4 00 (four) Medical times Branch daily as needed for Abdominal pain. proMETHazin 2020-0 Yes [id number] 25mg Take 1 Univers e 25 mg 8-03 tablet by ity of tablet 00:00: mouth [place] 00 every 6 Medical (six) Branch hours as needed for Nausea and Vomiting (N/V). dicyclomine 2020-0 Yes [id number] 20mg Take 1 Univers 20 mg 8-03 tablet by ity of tablet 00:00: mouth (four) Medical times Branch daily as needed for Abdominal pain. proMETHazin 2020-0 Yes [id number] 25mg Take 1 Univers e 25 mg 8-03 tablet by ity of tablet 00:00: mouth [place] 00 every 6 Medical (six) Branch hours as needed for Nausea and Vomiting (N/V). dicyclomine 2020-0 Yes [id number] 20mg Take 1 Univers 20 mg 8-03 tablet by ity of tablet 00:00: mouth (four) Medical times Branch daily as needed for Abdominal pain. proMETHazin 2020-0 Yes [id number] 25mg Take 1 Univers e 25 mg 8-03 tablet by ity of tablet 00:00: mouth [place] 00 every 6 Medical (six) Branch hours as needed for Nausea and Vomiting (N/V). dicyclomine 2020-0 Yes [id number] 20mg Take 1 Univers 20 mg 8-03 tablet by ity of tablet 00:00: mouth 4 00 (four) Medical times Branch daily as needed for Abdominal pain. proMETHazin 202-0 Yes [id number] 25mg Take 1 Univers e 25 mg 8-03 tablet by ity of tablet 00:00: mouth [place] 00 every 6 Medical (six) Branch hours as needed for Nausea and Vomiting (N/V). dicyclomine 202-0 Yes [id number] 20mg Take 1 Univers 20 mg 8-03 tablet by ity of tablet 00:00: mouth 4 00 (four) Medical times Branch daily as needed for Abdominal pain. proMETHazin Yes [id number] 25mg Take 1 Univers e 25 mg 8-03 tablet by ity of tablet 00:00: mouth [place] 00 every 6 Medical (six) Branch hours as needed for Nausea and Vomiting (N/V). dicyclomine Yes [id number] 20mg Take 1 Univers 20 mg 8-03 tablet by ity of tablet 00:00: mouth 4 [place] 00 (four) Medical times Branch daily as needed for Abdominal pain. ZONISAMIDE Yes TAKE 1 Unive rs 100 mg 11-15 CAPSULE BY ity of capsule 00:00: MOUTH [place] 00 TWICE A Medical DAY Branch ZONISAMIDE 2020- No TAKE 1 Univ ers 100 mg 4-29 - CAPSULE BY ity of capsule 00:00: 00:00 MOUTH [place] 00 :00 TWICE A Medical DAY Branch ondansetron Yes 4mg Take 4 mg U nivers (ZOFRAN) 4 7-24 by mouth ity o f mg tablet 20:05: every 8 [place] [address] (eight) Medical hours as Branch needed. pantoprazol Yes 40mg Take 40 mg Univers e 7-24 by mouth ity of (PROTONIX) 20:05: daily. [place] 40 mg EC Medical tablet Branch ondansetron Yes 4mg Take 4 mg U nivers (ZOFRAN) 4 7-24 by mouth ity o f mg tablet 20:05: every 8 [place] [address] (eight) Medical hours as Branch needed. pantoprazol [...] o f mg tablet 20:05: every 8 [place] [address] (eight) Medical hours as Branch needed. pantoprazol [...] 30 daily. Medical per tablet Branch omega-3 2017- Yes 1g Take 1 g Univer s [...] 7-24 by mouth ity of 19:58: daily. [place] [address] Medical Branch loratadine Yes Take by Univ ers (CLARITIN 7-24 mouth ity of LIQUI-GEL) 19:58: daily. [place] 10 mg 14 Medical capsule Branch MULTIVITAMI Yes 1{tbl} Take 1 Tab Univers N ORAL 7-24 by mouth ity of 19:58: daily. [place] [address] Medical Branch loratadine Yes Take by Univ ers (CLARITIN 7-24 mouth ity of LIQUI-GEL) 19:58: daily. [place] 10 mg 14 Medical capsule Branch MULTIVITAMI Yes 1{tbl} Take 1 Tab Univers N ORAL 7-24 by mouth ity of 19:58: daily. [place] [address] Medical Branch loratadine Yes Take by Univ ers (CLARITIN 7-24 mouth ity of LIQUI-GEL) 19:58: daily. [place] 10 mg 14 Medical capsule Branch MULTIVITAMI Yes 1{tbl} Take 1 Tab Univers N ORAL 7-24 by mouth ity of 19:58: daily. [place] [address] Medical Branch loratadine Yes Take by Univ ers (CLARITIN 7-24 mouth ity of LIQUI-GEL) 19:58: daily. [place] 10 mg 14 Medical capsule Branch MULTIVITAMI Yes 1{tbl} Take 1 Tab Univers N ORAL 7-24 by mouth ity of 19:58: daily. [place] [address] Medical Branch loratadine 0 Yes Take by Univ ers (CLARITIN 7-24 mouth ity of LIQUI-GEL) 19:58: daily. [place] 10 mg 14 Medical capsule Branch MULTIVITAMI Yes 1{tbl} Take 1 Tab Univers N ORAL 7-24 by mouth ity of 19:58: daily. [place] [address] Medical Branch loratadine Yes Take by Univ [...] (PROTONIX) 15:05: daily. [place] 40 mg EC Medical tablet [...] 7-24 by mouth ity of 14:58: daily. [place] [address] Medical Branch loratadine Yes Take by [facility] [place] [facility] ers (CLARITIN 7-24 mouth ity of LIQUI-GEL) 14:58: daily. [place] 10 mg 14 Medical capsule Branch MULTIVITAMI Yes 1{tbl} Take 1 Tab Univers N ORAL 7-24 by mouth ity of 14:58: daily. [place] [address] Medical Branch loratadine Yes Take by [facility] [place] [facility] ers (CLARITIN 7-24 mouth ity of LIQUI-GEL) 14:58: daily. [place] 10 mg 14 Medical capsule Branch MULTIVITAMI Yes 1{tbl} Take 1 Tab Univers N ORAL 7-24 by mouth ity of 14:58: daily. [place] [address] Medical Branch loratadine Yes Take by [facility] [place] [facility] ers (CLARITIN 7-24 mouth ity of LIQUI-GEL) 14:58: daily. [place] 10 mg 14 Medical capsule Branch MULTIVITAMI Yes 1{tbl} Take 1 Tab Univers N ORAL 7-24 by mouth ity of 14:58: daily. [place] 14 Medical Branch loratadine Yes Take by [facility] [place] [facility] ers (CLARITIN 7-24 mouth ity of LIQUI-GEL) 14:58: daily. [place] 10 mg 14 Medical capsule Branch MULTIVITAMI Yes 1{tbl} Take 1 Tab Univers N ORAL 7-24 by mouth ity of 14:58: daily. [place] 14 Medical Branch loratadine Yes Take by [facility] [place] [facility] ers (CLARITIN 7-24 mouth ity of LIQUI-GEL) [...] 00:00: daily. [place] mg tablet 00 Medical [place] Vital Signs Vital Name Observation Time Observation Value Comments Source HEIGHT 2023-03-29 20:00:00 157.5 cm WEIGHT 2023-03-29 20:00:00 92.08 kg HEIGHT 2023-03-29 20:00:00 157.5 cm WEIGHT 2023-03-29 20:00:00 92.08 kg HEIGHT 2023-03-29 20:00:00 157.5 cm WEIGHT 2023-03-29 20:00:00 92.08 kg Systolic blood 2022-12-11 20:00:00 142 mm[Hg] Univer sity of pressure [facility] Diastolic blood 2022-12-11 20:00:00 90 mm[Hg] Unive rsity of pressure [facility] Respiratory rate 2022-12-11 20:00:00 24 /min [facility] [place] [facility] Heart rate 2022-12-11 18:00:00 101 /min [facility] Oxygen saturation in 2022-12-11 18:00:00 93 /min [facility] Arterial blood by [facility] Pulse oximetry Branch BMI 2022-12-11 13:55:00 35.43 kg/m2 [facility] Body temperature 2022-12-11 13:55:00 37.22 Radha Univ [...] 97 /min University of Arterial blood by [facility] kwame Pulse oximetry Branch Body temperature 2022-11-17 22:28:00 [...] 97 /min University of Arterial blood by [facility] kwame Pulse oximetry Branch Body temperature 2022-08-02 01:00:00 36.44 Radha Univ ersity of [place] [facility] Systolic blood 2022-08-01 23:29:00 145 mm[Hg] Univer sity of pressure [place] [facility] Diastolic blood 2022-08-01 23:29:00 103 mm[Hg] Unive rsity of pressure [place] [facility] Body weight 2022-08-01 09:16:00 97.977 kg Universi ty [facility] [place] [facility] BMI 2022-08-01 09:16:00 38.26 kg/m2 [facility] [place] [facility] Body height 2022-07-31 21:54:00 160 [...] 94 /min University of Arterial blood by [facility] kwame Pulse oximetry Branch Body height 2022-05-05 [...] 98 /min University of Arterial blood by [facility] kwame Pulse oximetry Branch Body temperature 2022-04-15 [...] /min University of Arterial blood by [facility] Pulse oximetry Branch Body temperature [...] /min University of Arterial blood by [facility] Pulse oximetry Branch Body temperature [...] 2021-03-15 00:14:00 58.968 kg Universi ty of [facility] BMI 2021-03-15 00:14:00 23.03 kg/m2 Universi ty of [facility] Oxygen saturation in 2021-03-15 00:14:00 98 /min University of Arterial blood by [facility] Pulse oximetry Branch Systolic blood 2021-02-19 18:00:00 131 mm[Hg] Univer sity of pressure [facility] Diastolic blood 2021-02-19 18:00:00 80 mm[Hg] Unive rsity of [facility] Heart rate 2021-02-19 18:00:00 83 /min Universi ty of [facility] Respiratory rate 2021-02-19 18:00:00 18 /min [facility] Oxygen saturation in 2021-02-19 18:00:00 100 /min University of Arterial blood by [facility] Pulse oximetry Branch Body temperature 2021-02-19 15:47:00 37 Radha [facility] [place] [facility] Body height 2021-02-19 15:47:00 160 cm Universi ty [facility] Body weight 2021-02-19 15:47:00 58.968 kg Universi ty [facility] BMI 2021-02-19 15:47:00 23.03 kg/m2 Universi ty [facility] Respiratory rate 2023-04-02 16:35:00 18 /min [facility] Oxygen saturation in 2023-04-02 16:35:00 98 /min [facility] Arterial blood by Medical Ce nter Pulse oximetry Systolic blood 2023-04-02 12:00:00 147 mm[Hg] [facility] Diastolic blood 2023-04-02 12:00:00 97 mm[Hg] [facility] Heart rate 2023-04-02 12:00:00 106 /min [facility] Body temperature 2023-04-02 12:00:00 36.28 Radha [facility] Body height 2023-03-30 02:14:00 157.5 cm [facility] Body weight 2023-03-30 02:14:00 92.08 kg [facility] BMI 2023-03-30 02:14:00 37.13 kg/m2 [facility] Respiratory rate 2022-08-03 14:40:00 18 /min [facility] Systolic blood 2022-08-03 12:13:00 112 mm[Hg] [facility] Diastolic blood 2022-08-03 12:13:00 77 mm[Hg] [facility] Heart rate 2022-08-03 12:13:00 115 /min [facility] Oxygen saturation in 2022-08-03 12:13:00 93 /min [facility] Arterial blood by Medical Ce nter Pulse oximetry Body temperature 2022-08-03 12:00:00 36.83 Radha [facility] Body height 2022-08-02 21:52:00 160.2 cm [facility] Body weight 2022-08-02 21:52:00 95 kg [facility] BMI 2022-08-02 21:52:00 37.02 kg/m2 [facility] BP Systolic 2022-07-24 13:31:00 136 mm[Hg] [...] Date / Time Performing Clinician Source Performed XR CHEST 1 VIEW PORTABLE / 2023-04-[address] [facility] BEDSIDE 15:32:16 [facility] B-TYPE NATRIURETIC FACTOR 2023-04-01 Thomas Lozoya [facility] (BNP) 13:32:00 [facility] ECHO W CONTRAST & DOPPLER 2023-03-31 Mariah Aldridge [facility] 20:18:37 [facility] MR CERVICAL SPINE WITHOUT IV 2023-03-[address] [facility] CONTRAST 09:25:00 [facility] CBC (HEMOGRAM ONLY) 2023-03-[address] 03:45:00 [facility] COMPREHENSIVE METABOLIC PANEL 2023-03-[address] [facility] 03:45:00 [facility] ARTERIAL DOPPLER LEGS 2023-03-[address] [facility] BILATERAL 15:45:00 [facility] ARTERIAL (ALEISHA'S W/ DOPPLER) 2023-03-[address] [facility] ONLY 15:44:00 [facility] ECG 12-LEAD 2023-03-30 Unknown, Hl7 Doctor [facility] 13:06:22 [facility] ECG 12-LEAD 2023-03-[address] [facility] 13:06:22 [facility] ECG 12-LEAD 2023-03-30 Unknown, Hl7 Doctor [facility] 13:06:22 [facility] MR THORACIC SPINE WITHOUT IV 2023-03-30 Eric Gloria C [facility] CONTRAST 12:29:58 [facility] MR LUMBAR SPINE WITHOUT IV 2023-03-30 Eric, Sumeeth [facility] CONTRAST 11:58:00 [facility] EEG AWAKE AND DROWSY 2023-03-[address] [facility] 09:57:53 [facility] VALPROIC ACID LEVEL, TOTAL 2023-03-30 Liudmila Smart [facility] 09:06:00 [facility] URINALYSIS W/ REFLEX URINE 2023-03-[address] [facility] CULTURE 03:54:00 [facility] CBC (HEMOGRAM ONLY) 2023-03-[address] [facility] 03:52:00 [facility] COMPREHENSIVE METABOLIC PANEL 2023-03-[address] [facility] 03:52:00 [facility] HEMOGLOBIN A1C 2023-03-[address] [facility] 03:52:00 [facility] PT/APTT 2023-03-[address] [facility] 03:52:00 [facility] EKG-SCANNED 2023-03-[address] [facility] 00:00:00 Scanning [facility] Center CT HEAD WO CONTRAST 2022-12-11 Alfonso Alvarado [facility] o f 18:36:49 [facility] URINE DRUG (IMMUNOASSAY) - 2022-12-11 Alfonso Alvarado Unive rsity of COMPREHENSIVE DRUG SCREEN 17:13:00 [facility] URINALYSIS 2022-12-11 Alfonso Alvarado [place] of 17:13:00 [facility] CT CHEST PULMONARY ANGIOGRAM 2022-12-11 Alfonso Alvarado Uni versity of 16:26:39 [facility] MAGNESIUM 2022-12-11 Alfonso Alvarado [place] of 14:57:00 [facility] COMP. METABOLIC PANEL ([id number]) 2022-12-11 Alfonso Alvarado Un iversity of 14:57:00 [facility] D-DIMER 2022-12-11 Alfonso Alvarado [place] [facility] 14:15:00 [facility] XR CHEST 1 VW 2022-12-11 Alfonso Alvarado of 14:10:26 [facility] TROPONIN I 2022-12-11 Alfonso Alvarado of 14:02:00 [facility] CBC WITH DIFF 2022-12-11 Alfonso Alvarado of 14:02:00 [facility] N-TERMINAL PRO-BNP 2022-12-11 Alfonso Alvarado of 14:02:00 [facility] HB ECG ROUTINE & RHYTHM STRIP 2022-12-11 Alfonso Alvarado Un iversity of 14:01:08 [facility] CONSENT/REFUSAL FOR DIAGNOSIS 2022-12-11 Doctor Unassigned, University of AND TREATMENT 13:52:01 [place] [facility] ECG 12-LEAD 2022-08-03 Unknown, Hl7 Doctor ROB Renteria 05:03:32 [facility] ECG 12-LEAD 2022-08-03 Unknown, Hl7 [facility] 05:03:32 [facility] ECG 12-LEAD 2022-08-03 Unknown, Hl7 Doctor [facility] 05:03:32 [facility] LIPID PANEL 2022-08-02 Donaldo Hightower CHI 21:14:00 [facility] TSH/FREE T4 IF INDICATED 2022-08-02 Donaldo Hightower CHI 21:14:00 [facility] VITAMIN B12 2022-08-02 Donaldo Hightower CHI 21:14:00 [facility] HEMOGLOBIN A1C 2022-08-02 Donaldo Hightower CHI 21:14:00 [facility] COMPREHENSIVE METABOLIC PANEL 2022-08-02 Donaldo [facility]ower [facility] 21:14:00 [facility] CBC W/PLT COUNT & AUTO 2022-08-[address] [facility] DIFFERENTIAL 21:14:00 [facility] RPR 2022-08-[address] [facility] 21:14:00 [facility] HC LAB HIV-1 AG W/HIV-1&2 AB 2022-08-[address] [facility] 21:14:00 [facility] C-REACTIVE PROTEIN 2022-08-[address] [facility] 21:14:00 [facility] CBC W/PLT COUNT & AUTO 2022-08-[address] [facility] [facility] DIFFERENTIAL 21:14:00 [facility] EKG-SCANNED 2022-08-[address] [facility] 00:00:00 Scanning [facility] CT HEAD WO CONTRAST 2022-08-01 Lorenza Lowry [place] [facility] f 23:52:15 [facility] GALV ONLY - INFLUENZA A B RSV 2022-08-01 Letitia Chambers Un iversity of PCR 18:28:00 [facility] TRANSTHORACIC ECHO (TTE) 2022-08-01 [facility] COMPLETE W/ CONTRAST 14:42:00 [facility] Branch MAGNESIUM 2022-08-01 Lorenza Lowry [place] [facility] 10:42:00 [facility] BASIC METABOLIC PANEL (NA, K, 2022-08-01 Lorenza Lowry Un iversity of CL, CO2, GLUCOSE, BUN, 10:42:00 [facility] ical CREATININE, [place]) Branch CBC WITH DIFF 2022-08-01 Lorenza Lowry [place] [facility] 10:42:00 [facility] N-TERMINAL PRO-BNP 2022-08-01 [facility] of 10:42:00 [facility] POCT GLUCOSE (AUTOMATED) 2022-08-01 Lorenza Lowry [facility] ity of 06:56:00 [facility] CRITICAL CARE 2022-07-31 Sav Rondon [place] [facility] 22:31:36 [facility] URINALYSIS 2022-07-31 Sav Rondon [place] [facility] 20:52:00 [facility] URINE DRUG (IMMUNOASSAY) - 2022-07-31 [facility] COMPREHENSIVE DRUG SCREEN W/O 20:52:00 [place] [facility] REFLEX Branch XR CHEST 1 VW 2022-07-31 Sav Rondon of 18:45:17 [facility] LIPASE 2022-07-31 Sav Rondon [place] [facility] 17:58:00 [facility] TROPONIN I 2022-07-31 Sav Rondon [place] [facility] 17:58:00 [facility] COMP. METABOLIC PANEL ([id number]) 2022-07-31 Sav Rondon Un iversity of 17:58:00 [facility] CBC WITH DIFF 2022-07-31 Sav Ronodn [place] [facility] 17:58:00 [facility] PROTHROMBIN TIME / INR 2022-07-31 [facility] 17:58:00 [facility] ACTIVATED PARTIAL THRMPLAS 2022-07-31 [facility] DAVID 17:58:00 [facility] N-TERMINAL PRO-BNP 2022-07-31 Sav Rondon [place] [facility] 17:58:00 [facility] HB ECG ROUTINE & RHYTHM STRIP 2022-07-31 Sav Rondon iversity of 17:46:28 [facility] NOTICE OF PRIVACY PRACTICES 2022-07-31 Doctor Unassigned, U niversity of 17:35:38 [place] [facility] CONSENT/REFUSAL FOR DIAGNOSIS 2022-07-31 Doctor Unassigned, [facility] of AND TREATMENT 17:35:13 [place] [facility] PHOSPHORUS 2022-05-08 Azeem Meehan [place] of 05:51:00 [facility] MAGNESIUM 2022-05-08 Azeem Meehan [place] of 05:51:00 [facility] BASIC METABOLIC PANEL (NA, K, 2022-05-08 Azeem Meehan [facility] of CL, CO2, GLUCOSE, BUN, 05:51:00 [facility] ical CREATININE, CA) Branch CBC WITH DIFF 2022-05-08 Azeem Meehan of 05:51:00 [facility] BASIC METABOLIC PANEL (NA, K, 2022-05-07 John Cintron of CL, CO2, GLUCOSE, BUN, 07:09:00 [facility] ical CREATININE, CA) Branch CBC WITH DIFF 2022-05-07 John Cintron [place] of 07:09:00 [facility] POCT GLUCOSE (AUTOMATED) 2022-05-07 Brandyn Ibrahim Univers ity of 01:16:00 [facility] HB ABO GROUPING 2022-05-06 [facility] of 05:07:00 [facility] BASIC METABOLIC PANEL (NA, K, 2022-05-06 D'Tirado, Vincent U niversity of CL, CO2, GLUCOSE, BUN, 05:04:00 [facility] ical CREATININE, CA) Branch CBC WITH DIFF 2022-05-06 [facility] of 05:04:00 [facility] KEPPRA (LEVETIRACETAM) 2022-05-06 [facility] ty of 05:04:00 [facility] MR LUMBAR SPINE WO CONTRAST 2022-05-06 KneedlerEnder [facility] n[facility] of 02:54:37 [facility] ELECTROENCEPHALOGRAM 2022-05-06 CintronJohn renee [facility] ty of 00:00:00 [facility] BASIC METABOLIC PANEL (NA, K, 2022-05-05 [facility] of CL, CO2, GLUCOSE, BUN, 07:57:00 [facility] ica CREATININE, CA) Branch CBC WITH DIFF 2022-05-05 [facility] of 07:57:00 [facility] PROTHROMBIN TIME / INR 2022-05-05 [facility] ersity of 07:57:00 [facility] ACTIVATED PARTIAL THRMPLAS 2022-05-05 [facility] of DAVID 07:57:00 [facility] FIBRINOGEN 2022-05-05 [facility] of 07:57:00 [facility] EMERGENCY SERVICES AGREEMENTS 2022-05-04 Doctor Unassigned, [place] of AND AUTHORIZATIONS 05:01:00 [place] [facility] VITAMIN D, 25-OH 2022-04-15 [place] of 16:53:00 [facility] MR THORACIC SPINE WO CONTRAST 2022-04-15 Soumya Chua Un iversity of 11:56:19 [facility] MR CERVICAL SPINE WO CONTRAST 2022-04-15 Soumya Chua Un iversity of 11:20:00 [facility] BASIC METABOLIC PANEL (NA, K, 2022-04-15 Charmaine Morataya Un iversity of CL, CO2, GLUCOSE, BUN, 10:36:00 [place] [facility] CREATININE, CA) Branch TEST, URINE 2022-04-15 [facility] of 04:39:00 [facility] URINE DRUG (IMMUNOASSAY) - 2022-04-15 [facility] COMPREHENSIVE DRUG SCREEN 04:39:00 [facility] URINALYSIS 2022-04-15 [facility] of 04:39:00 [facility] TRANSTHORACIC ECHO (TTE) 2022-04-14 [facility] ity of COMPLETE W/ CONTRAST 16:37:03 [facility] KEPPRA (LEVETIRACETAM) 2022-04-14 [facility] y of 15:30:00 [facility] MAGNESIUM 2022-04-14 [facility] of 10:03:00 [facility] BASIC METABOLIC PANEL (NA, K, 2022-04-14 [facility] Un iversity of CL, CO2, GLUCOSE, BUN, 10:03:00 [place] [facility] CREATININE, CA) Branch MR LUMBAR SPINE WO CONTRAST 2022-04-14 [facility] ersity of 02:48:12 [facility] MR STROKE BRAIN WO CONTRAST 2022-04-14 [facility] ersity of 02:29:00 [facility] CT STROKE ANGIOGRAM HEAD 2022-04-13 Sapna Vargas [facility] ersity of 18:40:00 [facility] CT STROKE ANGIOGRAM NECK 2022-04-13 Sapna Vargas [facility] ersity of 18:40:00 [facility] CT STROKE HEAD WO CONTRAST 2022-04-13 Sapna Vargas Un iversity of 18:36:00 [facility] TROPONIN I 2022-04-13 Sapna Vargas [place] [facility] 18:17:00 [facility] THYROID STIMULATING HORMONE 2022-04-13 [facility] ersity of 18:17:00 [facility] BASIC METABOLIC PANEL (NA, K, 2022-04-13 Sapna Vargas [place] of CL, CO2, GLUCOSE, BUN, 18:17:00 [facility] ical CREATININE, [place]) [place] LIPID PANEL ([id number])(TOTAL 2022-04-13 Harshil Soumya [facility] sit of CHOLESTEROL, TRIGLYCERIDES, 18:17:00 [facility] HDL) Branch CBC WITHOUT DIFF 2022-04-13 Sapna Vargas [place] f 18:17:00 [facility] GLYCOSYLATED HEMOGLOBIN (A1C) 2022-04-13 Soumya Chua Un iversity of 18:17:00 [facility] PROTHROMBIN TIME / INR 2022-04-13 Sapna Vargas [facility] sity of 18:17:00 [facility] ACTIVATED PARTIAL THRMPLAS 2022-04-13 Sapna Vargas Un iversity of DAVID 18:17:00 [facility] COVID-19 (ID NOW RAPID 2022-04-13 Sapna Vargas [facility] of TESTING) 18:17:00 [facility] LAB ONLY COVID INTERPRETATION 2022-04-13 Sapna Vargas [facility] 18:17:00 [facility] HB ECG ROUTINE & RHYTHM STRIP 2022-04-13 Sapna Vargas [facility] 18:15:49 [facility] CONSENT/REFUSAL FOR DIAGNOSIS 2022-04-13 Doctor Unassigned, [facility] AND TREATMENT 18:05:14 [place] [facility] HOSPITAL ADMISSION 2022-04-13 Doctor Unassigned, [facility] 05:01:00 [place] [facility] SARS-COV-2 COVID-19 VACCINE 2022-02-19 Doctor Unassigned, U niversity of 12 YRS+,0.3ML,IM (PFIZER - 15:21:12 [place] [facility]) [place] URINE DRUG (IMMUNOASSAY) - 2021-11-23 Nichelle Vrik U niversity of COMPREHENSIVE DRUG SCREEN W/O 21:21:00 [place] [facility] REFLEX Branch CT HEAD WO CONTRAST 2021-11-23 Nichelle Virk [facility] ty of 20:58:00 [facility] POCT TEST 2021-11-23 Nichelle Virk [facility] ty of 20:46:00 [facility] URINALYSIS 2021-11-23 Nichelle Virk [place] f 20:43:00 [facility] LIPASE 2021-11-23 [facility] o f 20:27:00 [facility] TROPONIN I 2021-11-23 [facility] o f 20:27:00 [facility] COMP. METABOLIC PANEL ([id number]) 2021-11-23 [facility] of 20:27:00 [facility] CBC WITH DIFF 2021-11-23 [facility] o f 20:27:00 [facility] POCT GLUCOSE (AUTOMATED) 2021-11-23 Doctor Unassigned, Univ ersity of 20:15:00 [place] [facility] SARS-COV-2 COVID-19 2021-05-24 Doctor Unassigned, Universit y of VACCINE,0.3ML,IM (PFIZER) 14:23:12 [place] [facility] SARS-COV-2 COVID-19 2021-05-03 [facility] VACCINE,0.3ML,IM (PFIZER) 14:59:29 [place] [facility] EMERGENCY SERVICES AGREEMENTS 2021-04-16 Doctor Unassigned, [place] AND AUTHORIZATIONS 05:01:00 [place] [facility] URINALYSIS 2021-03-17 [facility] 03:09:00 [facility] XR CHEST 1 VW 2021-03-17 [facility] 01:45:07 [facility] TROPONIN I 2021-03-17 [facility] 01:35:00 [facility] COMP. METABOLIC PANEL ([id number]) 2021-03-17 Fabrice Chakraborty iversity of 01:35:00 [facility] CBC WITH DIFF 2021-03-17 [facility] 01:35:00 [facility] N-TERMINAL PRO-BNP 2021-03-17 [facility] 01:35:00 [facility] COVID-19 (ID NOW RAPID 2021-03-17 Brian Ray [facility] y of TESTING) 00:58:00 [facility] CONSENT/REFUSAL FOR DIAGNOSIS 2021-03-17 Doctor Unassigned, [place] AND TREATMENT 00:32:59 [place] [facility] COVID-19 (ID NOW RAPID 2021-02-19 Anali Monroy Universit y of TESTING) 17:04:00 [facility] CT ABDOMEN PELVIS W CONTRAST 2021-02-19 Anali Monroy Uni versity of 16:41:18 [facility] LIPASE 2021-02-19 Anali Monroy [place] 15:58:00 [facility] COMP. METABOLIC PANEL ([id number]) 2021-02-19 Anali Monroy Un iversity of 15:58:00 [facility] CBC WITH DIFF 2021-02-19 Anali Monroy [facility] 15:58:00 [facility] URINALYSIS 2021-02-19 Anali Monroy [facility] 15:58:00 [facility] NOTICE OF PRIVACY PRACTICES 2021-02-19 Doctor Unassigned, U niversity of 15:30:46 [place] [facility] CONSENT/REFUSAL FOR DIAGNOSIS 2021-02-19 Doctor Unassigned, University of AND TREATMENT 15:30:30 [place] [facility] Plan of Care Planned Activity Planned Date Details Comments Source Future Scheduled 2025-08-02 Lipid panel (procedure) [facility] 00:00:00 [code = 33502982] Medical Ce nter Future Scheduled 2025-08-02 Lipid panel (procedure) [facility] 00:00:00 [code = 94558601] Medical Ce nter Future Scheduled 2025-08-02 Lipid panel (procedure) [facility] 00:00:00 [code = 33203631] Medical Ce nter Future Scheduled 2025-08-02 Lipid panel (procedure) [facility] 00:00:00 [code = 34445418] Medical Ce nter Future Scheduled 2025-08-02 Lipid panel (procedure) [facility] 00:00:00 [code = 25641662] Medical Ce nter Future Scheduled 2025-08-02 Lipid panel (procedure) [facility] 00:00:00 [code = 11638773] Medical Ce nter Future Scheduled 2025-08-02 Lipid panel (procedure) [facility] 00:00:00 [code = 55157373] Medical Ce nter Future Scheduled 2025-08-02 Lipid panel (procedure) [facility] 00:00:00 [code = 05496148] Medical Ce nter Future Scheduled 2025-08-02 Lipid panel (procedure) [facility] 00:00:00 [code = 20236874] Medical Ce nter Future Scheduled 2025-08-02 Lipid panel (procedure) [facility] 00:00:00 [code = 75318556] Medical Ce nter Future Scheduled 2025-08-02 Lipid panel (procedure) [facility] 00:00:00 [code = 48712528] Medical Ce nter Future Scheduled 2025-08-02 Lipid panel (procedure) [facility] 00:00:00 [code = 65535583] Medical Ce nter Future Scheduled 2025-08-02 Lipid panel (procedure) [facility] 00:00:00 [code = 63853056] Medical Ce nter Future Scheduled 2025-08-02 Lipid panel (procedure) [facility] 00:00:00 [code = 82701844] Medical Ce nter Future Scheduled 2025-08-02 Lipid panel (procedure) [facility] 00:00:00 [code = 20636845] Medical Ce nter Future Scheduled 2025-08-02 Lipid panel (procedure) [facility] 00:00:00 [code = 93545608] Medical Ce nter Future Scheduled 2025-08-02 Lipid panel (procedure) [facility] 00:00:00 [code = 80370424] Medical Ce nter Future Scheduled 2023-03-20 Influenza Vaccine (#1) [facility] 00:00:00 [code = Influenza Vaccine Me [facility] (#1)] Future Scheduled 2023-03-20 INFLUENZA VACCINE [...] Me dical Center (#1)] Future Scheduled 2022-01-14 Screening for malignant [facility] 00:00:00 neoplasm of lung [facility] [address] (procedure) [code = 035097924] Future Scheduled 2022-01-14 SHINGLES VACCINES (1 of [...] VACCINES (1 of 2)] Future Scheduled 2022-01-14 Screening for malignant [facility] 00:00:00 neoplasm of lung [facility] (procedure) [code = 286475286] Future Scheduled 2022-01-14 SHINGLES VACCINES (1 of [...] cervix Medical C enter (procedure) [code = 255288456] Future Scheduled 1993-01-14 Screening for malignant [facility] 00:00:00 neoplasm of cervix Medical C enter (procedure) [code = 545274741] Future Scheduled 1993-01-14 Screening for malignant [facility] 00:00:00 neoplasm of cervix Medical C enter (procedure) [code = 058950326] Future Scheduled 1993-01-14 Screening for malignant [facility] 00:00:00 neoplasm of cervix Medical C enter (procedure) [code = 056765944] Future Scheduled 1993-01-14 Screening for malignant [facility] 00:00:00 neoplasm of cervix Medical C enter (procedure) [code = 574622920] Future Scheduled 1993-01-14 Screening for malignant [facility] 00:00:00 neoplasm of cervix Medical C enter (procedure) [code = 894289510] Future Scheduled 1993-01-14 Screening for malignant [facility] 00:00:00 neoplasm of cervix Medical C enter (procedure) [code = 338956593] Future Scheduled 1993-01-14 Screening for malignant [facility] 00:00:00 neoplasm of cervix Medical C enter (procedure) [code = 242317015] Future Scheduled 1993-01-14 Screening for malignant [facility] 00:00:00 neoplasm of cervix Medical C enter (procedure) [code = 768374882] Future Scheduled 1993-01-14 Screening for malignant [facility] 00:00:00 neoplasm of cervix Medical C enter (procedure) [code = 234053060] Future Scheduled 1993-01-14 Screening for malignant [facility] 00:00:00 neoplasm of cervix Medical C enter (procedure) [code = 192757056] Future Scheduled 1993-01-14 Screening for malignant [facility] 00:00:00 neoplasm of cervix Medical C enter (procedure) [code = 994018739] Future Scheduled 1993-01-14 Screening for malignant [facility] 00:00:00 neoplasm of cervix Medical C enter (procedure) [code = 154945429] Future Scheduled 1993-01-14 Screening for malignant [facility] 00:00:00 neoplasm of cervix Medical C enter (procedure) [code = 608347046] Future Scheduled 1993-01-14 Screening for malignant [facility] 00:00:00 neoplasm of cervix Medical C enter (procedure) [code = 610480290] Future Scheduled 1993-01-14 Screening for malignant [facility] 00:00:00 neoplasm of cervix Medical C enter (procedure) [code = 797777672] Future Scheduled 1993-01-14 Screening for malignant [facility] 00:00:00 neoplasm of cervix Medical C enter (procedure) [code = 108822517] Future Scheduled 1991-01-14 DTAP/TDAP/TD VACCINES (1 [facility] [...] screening [facility] (procedure) [code = 559053635] Future Scheduled 1987-01-[address] [facility] 00:00:00 virus screening Medical Cent [facility] (procedure) [code = 879510218] Future Scheduled [address] [...] breast Medical C enter (procedure) [code = 930210969] Future Scheduled 1972 CT Colonography (combo) [facility] 00:00:00 [code = CT Colonography [facility] (combo)] Future Scheduled 1972 Screening for malignant [facility] 00:00:00 neoplasm of colon Medical Ce nter (procedure) [code = 712826571] Future Scheduled 1972 Screening for malignant [facility] 00:00:00 neoplasm of colon Medical Ce nter (procedure) [code = 720844037] Future Scheduled 1972 Screening for malignant [facility] 00:00:00 neoplasm of colon Medical Ce nter (procedure) [code = 952241344] Future Scheduled 1972 Screening for malignant [facility] 00:00:00 neoplasm of colon Medical Ce nter (procedure) [code = 755495959] Future Scheduled 1972 Sigmoidoscopy [code [facility] S[facility]oscopy] Medical Cente r Future Scheduled 1972 Screening for malignant [facility] 00:00:00 neoplasm of breast Medical C enter (procedure) [code = 309714104] Future Scheduled 1972 CT Colonography (combo) [facility] 00:00:00 [code = CT [facility] ([facility])] Future Scheduled 1972 Screening for malignant [facility] 00:00:00 neoplasm of colon Medical Ce nter (procedure) [code = 096463543] Future Scheduled 1972 Screening for malignant [facility] 00:00:00 neoplasm of colon Medical Ce nter (procedure) [code = 995603068] Future Scheduled 1972 Screening for malignant [facility] 00:00:00 neoplasm of colon Medical Ce nter (procedure) [code = 681349866] Future Scheduled 1972 Screening for malignant [facility] 00:00:00 neoplasm of colon Medical Ce nter (procedure) [code = 865988781] Future Scheduled 1972 Sigmoidoscopy [facility]code [facility]oscopy] Medical Cente r Future Scheduled 1972 Screening for malignant [facility] 00:00:00 neoplasm of breast Medical C enter (procedure) [code = 336385962] Future Scheduled 1972 CT Colonography (combo) [facility] 00:00:00 [code = CT Colon[facility] (combo)] Future Scheduled 1972 Screening for malignant [facility] 00:00:00 neoplasm of colon Medical Ce nter (procedure) [code = 735556175] Future Scheduled 1972 Screening for malignant [facility] 00:00:00 neoplasm of colon Medical Ce nter (procedure) [code = 642428646] Future Scheduled 1972 Screening for malignant [facility] 00:00:00 neoplasm of colon Medical Ce nter (procedure) [code = 545794674] Future Scheduled 1972 Screening for malignant [facility] 00:00:00 neoplasm of colon Medical Ce nter (procedure) [code = 334821826] Future Scheduled 1972 Sigmoidoscopy [code = [facility] S[facility]oscopy] Medical Christine r Future Scheduled 1972 Screening for malignant [facility] 00:00:00 neoplasm of breast Medical C enter (procedure) [code = 600368210] Future Scheduled 1972 CT Colonography (combo) [facility] 00:00:00 [code = CT Colonography [facility] (combo)] Future Scheduled 1972 Screening for malignant [facility] 00:00:00 neoplasm of colon Medical Ce nter (procedure) [code = 493525543] Future Scheduled 1972 Screening for malignant [facility] 00:00:00 neoplasm of colon Medical Ce nter (procedure) [code = 731181641] Future Scheduled 1972 Screening for malignant [facility] 00:00:00 neoplasm of colon Medical Ce nter (procedure) [code = 406056589] Future Scheduled 1972 Screening for malignant [facility] 00:00:00 neoplasm of colon Medical Ce nter (procedure) [code = 824044002] Future Scheduled 1972 Sigmoidoscopy [facility]code [facility]oscopy] Medical Christine r Future Scheduled 1972 Screening for malignant [facility] 00:00:00 neoplasm of breast Medical C enter (procedure) [code = 862201847] Future Scheduled 1972 CT Colonography (combo) [facility] 00:00:00 [code = CT Colon[facility] (combo)] Future Scheduled 1972 Screening for malignant [facility] 00:00:00 neoplasm of colon Medical Ce nter (procedure) [code = 694180767] Future Scheduled 1972 Screening for malignant [facility] 00:00:00 neoplasm of colon Medical Ce nter (procedure) [code = 992468432] Future Scheduled 1972 Screening for malignant [facility] 00:00:00 neoplasm of colon Medical Ce nter (procedure) [code = 217038722] Future Scheduled 1972 Screening for malignant [facility] 00:00:00 neoplasm of colon Medical Ce nter (procedure) [code = 890927281] Future Scheduled 1972 Sigmoidoscopy [facility]code [facility]] Medical Cente r Future Scheduled 1972 Screening for malignant [facility] 00:00:00 neoplasm of breast Medical C enter (procedure) [code = 121654838] Future Scheduled 1972 CT Colonography (combo) [facility] 00:00:00 [code = CT [facility]ography [facility] (combo)] Future Scheduled 1972 Screening for malignant [facility] 00:00:00 neoplasm of colon Medical Ce nter (procedure) [code = 511641933] Future Scheduled 1972 Screening for malignant [facility] 00:00:00 neoplasm of colon Medical Ce nter (procedure) [code = 518008666] Future Scheduled 1972 Screening for malignant [facility] 00:00:00 neoplasm of colon Medical Ce nter (procedure) [code = 609676580] Future Scheduled 1972 Screening for malignant [facility] 00:00:00 neoplasm of colon Medical Ce nter (procedure) [code = 808395287] Future Scheduled 1972 S[facility]oidoscopy [facility]code [facility]] Medical Cente r Future Scheduled 1972 Screening for malignant [facility] 00:00:00 neoplasm of breast Medical C enter (procedure) [code = 502639628] Future Scheduled 1972 CT Colonography (combo) [facility] 00:00:00 [code = CT [facility] (combo)] Future Scheduled 1972 Screening for malignant [facility] 00:00:00 neoplasm of colon Medical Ce nter (procedure) [code = 194125248] Future Scheduled 1972 Screening for malignant [facility] 00:00:00 neoplasm of colon Medical Ce nter (procedure) [code = 513539230] Future Scheduled 1972 Screening for malignant [facility] 00:00:00 neoplasm of colon Medical Ce nter (procedure) [code = 297575672] Future Scheduled 1972 Screening for malignant [facility] 00:00:00 neoplasm of colon Medical Ce nter (procedure) [code = 450570282] Future Scheduled 1972 Sigmoidoscopy [facility]code = [facility]oscopy] Medical Cente r Future Scheduled 1972 Screening for malignant [facility] 00:00:00 neoplasm of breast Medical C enter (procedure) [code = 483278728] Future Scheduled 1972 CT Colonography (combo) [facility] 00:00:00 [code = CT [facility] (combo)] Future Scheduled 1972 Screening for malignant [facility] 00:00:00 neoplasm of colon Medical Ce nter (procedure) [code = 040210097] Future Scheduled 1972 Screening for malignant [facility] 00:00:00 neoplasm of colon Medical Ce nter (procedure) [code = 681018604] Future Scheduled 1972 Screening for malignant [facility] 00:00:00 neoplasm of colon Medical Ce nter (procedure) [code = 170563991] Future Scheduled 1972 Screening for malignant [facility] 00:00:00 neoplasm of colon Medical Ce nter (procedure) [code = 702943141] Future Scheduled 1972 Sigmoidoscopy [facility]code [facility]oscopy] Medical Cente r Future Scheduled 1972 Screening for malignant [facility] 00:00:00 neoplasm of breast Medical C enter (procedure) [code = 318750527] Future Scheduled 1972 CT Colonography (combo) [facility] 00:00:00 [code = CT [facility] (combo)] Future Scheduled 1972 Screening for malignant [facility] 00:00:00 neoplasm of colon Medical Ce nter (procedure) [code = 548957341] Future Scheduled 1972 Screening for malignant [facility] 00:00:00 neoplasm of colon Medical Ce nter (procedure) [code = 634217668] Future Scheduled 1972 Screening for malignant [facility] 00:00:00 neoplasm of colon Medical Ce nter (procedure) [code = 303670418] Future Scheduled 1972 Screening for malignant [facility] 00:00:00 neoplasm of colon Medical Ce nter (procedure) [code = 493215988] Future Scheduled 1972 Sigmoidoscopy [code = [facility] S[facility]oscopy] Medical Cente r Future Scheduled 1972 Screening for malignant [facility] 00:00:00 neoplasm of breast Medical C enter (procedure) [code = 849931078] Future Scheduled 1972 CT Colonography (combo) [facility] 00:00:00 [code = CT [facility]ography [facility] ([facility]bo)] Future Scheduled 1972 Screening for malignant [facility] 00:00:00 neoplasm of colon Medical Ce nter (procedure) [code = 693630296] Future Scheduled 1972 Screening for malignant [facility] 00:00:00 neoplasm of colon Medical Ce nter (procedure) [code = 707613474] Future Scheduled 1972 Screening for malignant [facility] 00:00:00 neoplasm of colon Medical Ce nter (procedure) [code = 573363287] Future Scheduled 1972 Screening for malignant [facility] 00:00:00 neoplasm of colon Medical Ce nter (procedure) [code = 660838903] Future Scheduled 1972 Sigmoidoscopy [facility]code = [facility]] Medical Cente r Future Scheduled 1972 Screening for malignant [facility] 00:00:00 neoplasm of breast Medical C enter (procedure) [code = 686380617] Future Scheduled 1972 CT Colonography (combo) [facility] 00:00:00 [code = CT [facility] ([facility])] Future Scheduled 1972 Screening for malignant [facility] 00:00:00 neoplasm of colon Medical Ce nter (procedure) [code = 714616495] Future Scheduled 1972 Screening for malignant [facility] 00:00:00 neoplasm of colon Medical Ce nter (procedure) [code = 427822975] Future Scheduled 1972 Screening for malignant [facility] 00:00:00 neoplasm of colon Medical Ce nter (procedure) [code = 737408833] Future Scheduled 1972 Screening for malignant [facility] 00:00:00 neoplasm of colon Medical Ce nter (procedure) [code = 395675040] Future Scheduled 1972 Sigmoidoscopy [facility]code = [facility]oscopy] Medical Cente r Future Scheduled 1972 Screening for malignant [facility] 00:00:00 neoplasm of breast Medical C enter (procedure) [code = 268939617] Future Scheduled 1972 CT Colonography (combo) [facility] 00:00:00 [code = CT [facility] ([facility])] Future Scheduled 1972 Screening for malignant [facility] 00:00:00 neoplasm of colon Medical Ce nter (procedure) [code = 781670477] Future Scheduled 1972 Screening for malignant [facility] 00:00:00 neoplasm of colon Medical Ce nter (procedure) [code = 237007940] Future Scheduled 1972 Screening for malignant [facility] 00:00:00 neoplasm of colon Medical Ce nter (procedure) [code = 356076989] Future Scheduled 1972 Screening for malignant [facility] 00:00:00 neoplasm of colon Medical Ce nter (procedure) [code = 635572528] Future Scheduled 1972 Sigmoidoscopy [facility]code = [facility]oscopy] Medical Cente r Future Scheduled 1972 Screening for malignant [facility] 00:00:00 neoplasm of breast Medical C enter (procedure) [code = 034638564] Future Scheduled 1972 CT Colonography (combo) [facility] 00:00:00 [code = CT [facility] ([facility])] Future Scheduled 1972 Screening for malignant [facility] 00:00:00 neoplasm of colon Medical Ce nter (procedure) [code = 647793182] Future Scheduled 1972 Screening for malignant [facility] 00:00:00 neoplasm of colon Medical Ce nter (procedure) [code = 520263072] Future Scheduled 1972 Screening for malignant [facility] 00:00:00 neoplasm of colon Medical Ce nter (procedure) [code = 114971009] Future Scheduled 1972 Screening for malignant [facility] 00:00:00 neoplasm of colon Medical Ce nter (procedure) [code = 666905111] Future Scheduled 1972 Sigmoidoscopy [facility]code = [facility]oscopy] Medical Cente r Future Scheduled 1972 Screening for malignant [facility] 00:00:00 neoplasm of breast Medical C enter (procedure) [code = 290924507] Future Scheduled 1972 CT Colonography (combo) [facility] 00:00:00 [code = CT Colonography [facility] (combo)] Future Scheduled 1972 Screening for malignant [facility] 00:00:00 neoplasm of colon Medical Ce nter (procedure) [code = 201457902] Future Scheduled 1972 Screening for malignant [facility] 00:00:00 neoplasm of colon Medical Ce nter (procedure) [code = 465936149] Future Scheduled 1972 Screening for malignant [facility] 00:00:00 neoplasm of colon Medical Ce nter (procedure) [code = 613116882] Future Scheduled 1972 Screening for malignant [facility] 00:00:00 neoplasm of colon Medical Ce nter (procedure) [code = 489544960] Future Scheduled 1972 Sigmoidoscopy [facility]] Medical Cente r Future Scheduled 1972 Screening for malignant [facility] 00:00:00 neoplasm of breast Medical C enter (procedure) [code = 544022989] Future Scheduled 1972 CT Colonography (combo) [facility] 00:00:00 [code = CT [facility])] Future Scheduled 1972 Screening for malignant [facility] 00:00:00 neoplasm of colon Medical Ce nter (procedure) [code = 698376854] Future Scheduled 1972 Screening for malignant [facility] 00:00:00 neoplasm of colon Medical Ce nter (procedure) [code = 342221745] Future Scheduled 1972 Screening for malignant [facility] 00:00:00 neoplasm of colon Medical Ce nter (procedure) [code = 519406125] Future Scheduled 1972 Screening for malignant [facility] 00:00:00 neoplasm of colon Medical Ce nter (procedure) [code = 474007657] Future Scheduled 1972 Sigmoidoscopy [facility]code [facility]oscopy] Medical Cente r Future Scheduled 1972 Screening for malignant [facility] 00:00:00 neoplasm of breast Medical C enter (procedure) [code = 473517944] Future Scheduled 1972 CT Colonography (combo) [facility] 00:00:00 [code = CT [facility] ([facility])] Future Scheduled 1972 Screening for malignant [facility] 00:00:00 neoplasm of colon Medical Ce nter (procedure) [code = 794710767] Future Scheduled 1972 Screening for malignant [facility] 00:00:00 neoplasm of colon Medical Ce nter (procedure) [code = 602283231] Future Scheduled 1972 Screening for malignant [facility] 00:00:00 neoplasm of colon Medical Ce nter (procedure) [code = 667375507] Future Scheduled 1972 Screening for malignant [facility] 00:00:00 neoplasm of colon Medical Ce nter (procedure) [code = 071464813] Future Scheduled 1972 Sigmoidoscopy [facility]code [facility]] Medical Cente r Future Scheduled 1972 Screening for malignant [facility] 00:00:00 neoplasm of breast Medical C enter (procedure) [code = 468865510] Future Scheduled 1972 CT Colonography (combo) [facility] 00:00:00 [code = CT [facility] ([facility])] Future Scheduled 1972 Screening for malignant [facility] 00:00:00 neoplasm of colon Medical Ce nter (procedure) [code = 571368357] Future Scheduled 1972 Screening for malignant [facility] 00:00:00 neoplasm of colon Medical Ce nter (procedure) [code = 552621426] Future Scheduled 1972 Screening for malignant [facility] 00:00:00 neoplasm of colon Medical Ce nter (procedure) [code = 538563349] Future Scheduled 1972 Screening for malignant [facility] 00:00:00 neoplasm of colon Medical Ce nter (procedure) [code = 823913619] Future Scheduled 1972 Sigmoidoscopy [code = [facility]] Medical Cente r Goal Plan of Care Note [code = 77250-0] Goal Plan of Care Note [code = 64743-3] Goal Plan of Care Note [code = 49485-5] Goal Plan of Care Note [code = 73090-4] Goal Plan of Care Note [code = 61327-7] Goal Plan of Care Note [code = 18498-8] Goal Plan of Care Note [code = 48772-3] Goal Plan of Care Note [code = 21239-5] Goal Plan of Care Note [code = 58978-0] Goal Plan of Care Note [code = 82021-7] Goal Plan of Care Note [code = 63582-7] Goal Plan of Care Note [code = 05837-6] Goal Plan of Care Note [code = 39456-3] Goal Plan of Care Note [code = 30796-4] Goal Plan of Care Note [code = 83822-3] Goal Plan of Care Note [code = 86664-7] Goal Plan of Care Note [code = 86503-2] Goal Plan of Care Note [code = 60664-6] Goal Plan of Care Note [code = 60706-5] Goal Plan of Care Note [code = 05576-4] Goal Plan of Care Note [code = 22237-3] Goal Plan of Care Note [code = 62267-6] Goal Plan of Care Note [code = 10791-2] Goal Plan of Care Note [code = 93353-0] Goal Plan of Care Note [code = 14986-5] Goal Plan of Care Note [code = 49527-5] Goal Plan of Care Note [code = 87015-5] Goal Plan of Care Note [code = 29271-5] Goal Plan of Care Note [code = 18812-4] Goal Plan of Care Note [code = 06047-4] Goal Plan of Care Note [code = 93508-0] Goal Plan of Care Note [code = 01379-4] Goal Plan of Care Note [code = 60724-7] Goal Plan of Care Note [code = 66193-1] Goal Plan of Care Note [code = 48720-2] Encounters Start End Encounter Admission Attending Care Care Encounter Source Date/Time Date/Time Type Type Clinicians Facility Department ID 2023-04-01 Inpatient ER DEISI LOZOYA [facility] [id number] SLE 14:26:29 [facility] 2023-03-31 Inpatient ER DEISI ALDRIDGE [facility] [id number] SLE 09:24:52 [facility] 2021-05-20 Emergency [facility] [id number] Univers 18:48:04 [facility] 2021-05-20 Emergency [facility] [id number] Univers 12:43:40 [facility] 2023-03-29 [facility]23[facility]04-02 [facility] [id number] 19:25[facility]00 20:48:00 [facility] 2023-03-29 2023-04-02 Inpatient ER DEVORA [facility] Neurology [id number] SLE 19:25:00 20:48:00 [facility] 2023-03-29 2023-04-02 [facility] Connie Davey [facility] [id number] [facility] 19:25:00 20:48:00 Encounter Mariah Aldridge [facility] 2023-03-31 2023-03-31 Inpatient ER DEISI ALDRIDGE [facility] [id number] SLE 08:32:56 00:00:00 [facility] 2023-03-30 2023-03-[address] [facility] [id number] [facility] 10:24:12 23:59:00 CONNIE 2023-03-30 2023-03-30 [facility] [id number] 09:40:00 23:59:00 Encounter Connie [facility] 2023-03-30 2023-03-30 [facility] [id number] 09:40:00 23:59:00 Encounter Connie Carter [facility] 2023-03-30 2023-03-30 Outpatient ER LUIS CARLOS [facility] [id number] [facility] 13:46:20 13:46:20 [facility] 2023-03-30 2023-03-30 Outpatient ER LUIS CARLOS SLE SLE [id number] [facility] 13:46:14 13:46:14 [facility] 2023-03-30 2023-03-30 Outpatient ER YUNG DAVEY SLE [id number] [facility] 10:24:04 10:24:04 [facility] 2023-03-30 2023-03-30 Orders [facility] [id number] 00:00:00 00:00:00 Only [facility] 2023-03-30 2023-03-30 Travel [facility] [id number] [facility] 00:[facility] 00:00:00 [facility] 2023-03-30 2023-03-30 Orders [facility] [id number] 00:00:00 00:00:00 Only [facility] 2023-03-30 2023-03-30 Travel [facility] [id number] [facility] 00:[facility]00 00:00:00 [facility] 2022-12-11 2022-12-11 Emergency X Alfonso ALVARADO [facility] ERT [id number] Univers 08:56:00 15:29:00 ity of [facility] 2022-12-11 2022-12-11 Emergency Alfonso Alvarado [facility] 1.2.840.114 [id number] Univers 08:56:00 15:29:00 Lorelei HERNANDEZ 350.1.13.10 i ty [facility] 4.2.7.2.686 [facility] [id number] [place] [address] [address] 2022-11-17 2022-11-18 Emergency X BRIANA, [facility] ERT [id number] Univers 17:25:00 01:19:00 RITCHIE quitashawn of [facility] 2022-11-17 2022-11-18 Emergency Briana, [facility] 1.2.134.289 [id number] Univers 17:25:00 01:19:00 Ritchie HERNANDEZ 350.1.13.10 it[place] [id number] [facility] [address] 2022-08-28 2022-08-28 Patient Shy Beckman 1.2.840.114 10 [id number] Univers 00:00:00 00:00:00 Outreach E WALLACE 350.1.13.10 [place] [id number] [facility] [address] 2022-08-20 2022-08-20 Patient Shy Beckman 1.2.840.114 10 [id number] Univers 00:00:00 00:00:00 Outreach E [place] 350.1.13.10 [place] [id number] [facility] [address] 2022-08-02 2022-08-03 [facility] [id number] 17:30:00 14:29:00 Encounter Jen Geller [facility] 2022-08-02 2022-08-03 Outpatient ER [facility], [facility] Neurology [id number] [facility] 17:30:00 14:29:00 [facility] 2022-08-02 2022-08-03 [facility] [id number] 17:30:00 14:29:00 Encounter Jen Geller [facility] 2022-08-03 2022-08-03 Orders [facility] [id number] 00:00:00 00:00:00 Only [facility] 2022-08-03 2022-08-03 Orders [facility] [id number] 00:00:00 00:00:00 Only [facility] 2022-08-02 2022-08-02 Travel [facility] [id number] [facility] 00:00[facility]00 00:00:00 [facility] 2022-08-02 2022-08-02 Travel [facility] [id number] [facility] 00:00:00 00:00:00 [facility] 2022-07-31 2022-08-01 Inpatient X ARDEN [facility] [id number] Univers 11:42:00 21:48:00 LORENZA ity of [facility] 2022-07-31 2022-08-01 [facility] Sav Rondon [facility] 1.2.840.1 14 [id number] Univers 11:42:00 21:48:00 Encounter Lorenza Lowry HAPPY JACK 350.1.13.10 ity of [place] [facility] [id number] [facility] [address] 2022-08-01 2022-08-01 Transition BLAYNE Nicole 1.2.840.114 [id number] Univers 00:00:00 00:00:00 of Care Maria Teresa WALLACE 350.1.13.10 ity of [place] [id number] [facility] [address] 2022-07-28 2022-07-28 Outpatient SFA SFA [id number] Adria 14:41:38 14:41:38 0109 F Mauricio 2022-07-28 2022-07-28 Outpatient [id number] 3d [id number] 00:00:00 00:00:00 Visit [id number] -[id number] [id number] 2022-07-24 2022-07-24 Outpatient SFA SFA [id number] Adria 13:24:40 13:24:40 0105 F Mauricio 2022-05-23 2022-05-23 Outpatient SFA SFA [id number] Adria 14:51:01 14:51:01 1104 F Mauricio 2022-05-23 2022-05-23 Outpatient [id number] [id number]-w 00:00:00 00:00:00 Visit [id number] [id number]-b -h61j-3f0 [id number] 7850ee 2022-05-04 2022-05-08 Outpatient X CHANTEL MATTHEWS [facility] [place] [id number] Univers 20:22:00 14:44:00 CHANTEL MATTHEWS ity [facility] 2022-05-04 2022-05-08 Emergency BrinerBrandyn 1.2.840.1 14 [id number] Univers 20:22:00 14:44:00 Chantel Matthews 350.1.13 .10 ity of [facility] 4.2.7.2.686 [facility] [id number] [address] 2022-04-13 2022-04-15 Inpatient X [facility] BERNARDINO [id number] Univers 13:06:00 15:00:00 [facility] ity [facility] 2022-04-13 2022-04-15 Hospital Sapna Vargas 1.2.84 0.114 [id number] Univers 13:06:00 15:00:00 Encounter Glory Sarah Sterling JC 350. 1.13.10 ity of [facility] 4.2.7.2.686 [place] [id number] [facility] [address] 2022-02-19 2022-02-19 Imm/Inj Vaccine, [facility] [place] 1.2.840.114 [id number] Univers 10:20:00 10:30:00 Visit Jose Pak 350.1.13.10 [place] [facility] [id number] [facility] [address] 2022-02-19 2022-02-19 Outpatient R JOSE PAK [facility] [id number] Univers 10:20:00 10:20:00 ity of [facility] 2021-11-23 2021-11-23 Emergency X SULLY [facility] ERT [id number] Univers 15:07:00 17:03:00 NICHELLE ity of [facility] 2021-11-23 2021-11-23 Emergency Sav Rondon [facility] 1.2.840. 114 [id number] Univers 15:07:00 17:03:00 Nichelle Virk F MARY 350.1.13. 10 ity of [place] 4.2.7.2.686 [facility] [id number] [facility] [address] 2021-11-21 2021-11-21 Outpatient R [facility] [id number] Univers 09:40:00 09:40:00 ity of [facility] 2021-05-24 2021-05-24 Outpatient R PASHA JOSE [facility] [id number] Univers 09:30:00 09:30:00 ity of [facility] 2021-05-24 2021-05-24 Imm/Inj Vaccine, [facility] [place] 1.2.840.114 [id number] Univers 08:47:51 08:57:51 Visit Jose Pak 350.1.13.10 [place] [id number] [address] 2021-05-03 2021-05-03 Outpatient R JOSE PAK [facility] [id number] Univers 09:40:00 09:59:35 ity of [facility] 2021-05-03 2021-05-03 Imm/Inj Vaccine, [facility] [place] 1.2.840.114 [id number] Univers 09:17:43 09:59:35 Visit Jose Pak 350.1.13.10 [place] [facility] [id number] [address] 2021-04-16 2021-04-16 Orders Doctor THEODORE 1.2.840.114 [id number] Univers 00:00:00 00:00:00 Only Unassigned, HOSEA 350.1.13.10 ity of [place] [facility] 4.2.7.2.686 Javier as [id number] [facility] [address] 2021-03-17 2021-03-17 Telephone EWELINA Nava 1.2.213.506 [id number] Univers 00:00:00 00:00:00 Rosibelsuha BONILLAY 350.1.13.10 ity of [facility] 42.7.2.686 Javier as [id number] [facility] [address] 2021-03-16 2021-03-16 Emergency Palmer [facility] 1.2.840.114 [id number] Univers 20:08:00 23:24:00 Fabrice Hernandez 350.1.13.10 i ty of [address]2.686 [facility] [id number] [address] 2021-03-14 2021-03-14 Urgent Lydia Desouza [facility] 1.2.840.114 [id number] Univers 18:59:34 20:19:13 Care Unknown, Attending Health 350.1.13.10 [place] [address].2.7.2.686 Javier as Prem?Blea [id number] [address] Medical Office Building 2021-03-14 2021-03-14 Outpatient R UNKNOWN, [facility] [id number] Univers 19:00:00 19:00:00 [facility] 2021-02-19 2021-02-19 [facility] 1.2.484.976 [id number] Univers 10:49:00 14:48:00 Anali Hernandez 350.1.13.10 i ty of [place] 42.7.2.686 [facility] [id number] [address] 2019-03-09 2019-03-09 Dick Arcos [facility] 1.2.840.114 [id number] 00:00:00 00:00:00 Yehuda Hernandez 350.1.13.10 [place] 42.7.2.686 Professio [id number] [facility] Building 2019-03-09 2019-03-09 [facility] 1.2.840.114 [id number] Univers 00:00:00 00:00:00 Yehuda Hernandez 350.1.13.10 [facility] Shonna 4.2.7.2.686 Charles Pope [id number] [facility] [address] Building Results Test Description Test Time Test Comments Results Result Sourc e Comments XR CHEST 1 VIEW 2023-04-01 PORTABLE / 15:39:07 [facility] 1970 Sex: F TECHNIQU E: Frontal view of the chest.INDICATION: CHf.COMPARISON: None.FINDINGS:LINES/TUB ES: None.HEART AND MEDIASTINUM: Cardiomediastinal contour is within normallimits. LUNGS: The lungs are well inflated and clear. No consolidation orpulmonary edema.PLEURA: No pneumothorax. No significant pleural effusion.SOFT TISSUES AND BONES: Cervical spinal fixation hardware is noted.IMPRESSION:No acute cardiopulmonary process.Electronically Signed By: Jose Carlos Lebron04/01/2023 15:41 CDTWorkstation Name: [id number] B-TYPE NATRIURETIC FACTOR (BNP) 2023-04-01 14:15:07 Test Item Value Reference Range Interpretation Comme nts B-TYPE NATRIURETIC PEPTIDE (BEAKER) (test code = 700) 192 pg/mL 0-100 H [facility] Residential Service Technician ID - ADMINMR CERVICAL SPINE WITHOUT IV [id number] 11:30:35 [facility] : 1970 Sex: FMRI cervical spine without contrastCLINICAL HISTORY: Cervical radiculopathy, no red flagsTECHNIQUE: Multiplanar, multisequence noncontrast MRI of the cervicalspine was performed.COMPARISON: None available.FINDINGS:Vertebral body height and alignment is within normal limits. The bonemarrow signal is normal.Postoperative changes from C4-C7 anterior cervical fusion.The craniocervical junction and visualized intracranial compartment areunremarkable.T2/STIR hyperintensity seen within the cervical cord at the C3-C4 level(series 12 one image eight and series 1101 image 22 The intervertebraldisc spaces are normal in height and signal. Degenerative facet ankylosis at the left C4-C6 levels.The individual disc levels demonstrate the following:C2-C3: No significant spinal canal or neural foraminal stenosis.C3-C4: Posterior disc osteophyte complex with moderate bilateral neuralforaminal stenosis and severe spinal canal stenosisC4-C5: Mild nonspecific focal STIR hyperintensity at the posterior discspace.C5-C6: No significant spinal canal or neural foraminal stenosis.C6-C7: No significant spinal canal or neural foraminal stenosis. C7-T1: Facet arthropathy with moderate to severe left neural foraminalstenosis.The prevertebral and paraspinal soft tissues are within normal limits.IMPRESSION:1. 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 moderate to severe left neural foraminal stenosis at C7-T1.3. Postoperative changes from prior C4-C7 anterior cervical fusion.Electronically Signed By: Maxim Sultana03/31/2023 11:32 CDTWorkstation Name: [id number] METABOLIC [id number] 04:43:14 Test Item Value Reference Range Interpretation Comments TOTAL PROTEIN 6.4 gm/dL 6.0-8.3 (BEAKER) (test code = 770) ALBUMIN (BEAKER) 3.8 g/dL 3.5-5.0 (test code = 1145) ALKALINE 66 U/L 40-150 PHOSPHATASE (BEAKER) (test code = 346) BILIRUBIN TOTAL 0.3 mg/dL 0.2-1.2 (BEAKER) (test code = 377) SODIUM (BEAKER) 139 meq/L 136-145 (test code = 381) POTASSIUM (BEAKER) 4.1 meq/L 3.5-5.1 (test code = 379) CHLORIDE (BEAKER) 104 meq/L 98-107 (test code = 382) CO2 (BEAKER) (test 27 meq/L 22-29 code = 355) BLOOD UREA 12 mg/dL 7-21 NITROGEN (BEAKER) (test code = 354) CREATININE 0.77 mg/dL 0.57-1.25 (BEAKER) (test code = 358) GLUCOSE RANDOM 116 mg/dL 70-105 H (BEAKER) (test code = 652) CALCIUM (BEAKER) 8.9 mg/dL 8.4-10.2 (test code = 697) AST (SGOT) 16 U/L 5-34 (BEAKER) (test code = 353) ALT (SGPT) 14 U/L 6-55 (BEAKER) (test code = 347) EGFR (BEAKER) 93 Interpretatio n of eGFR (test code = [...] not appl icable for dialysis patien ts Hvac Residential Service Technician ID - MADELINE WCBC (HEMOGRAM ONLY)2023-03-31 04:20:07 Test Item Value Reference Range Interpretation Comments WHITE BLOOD CELL COUNT (BEAKER) 8.8 K/ L 3.5-10.5 (test code = 775) RED BLOOD CELL COUNT (BEAKER) 4.21 M/ L 3.93-5.22 (test code = 761) HEMOGLOBIN (BEAKER) (test code = 11.5 GM/DL 11.2-15.7 410) HEMATOCRIT (BEAKER) (test code = 37.8 % 34.1-44.9 411) MEAN CORPUSCULAR VOLUME (BEAKER) 90 fL 79-95 (test code = 753) MEAN CORPUSCULAR HEMOGLOBIN 27.3 pg 25.6-32.2 (BEAKER) (test code = 751) MEAN CORPUSCULAR HEMOGLOBIN CONC 30.4 GM/DL 32.2-35.5 L (BEAKER) (test code = 752) RED CELL DISTRIBUTION WIDTH 18.1 % 11.7-14.4 H (BEAKER) (test code = 412) PLATELET COUNT (BEAKER) (test 364 K/CU MM 150-450 code = 756) MEAN PLATELET VOLUME (BEAKER) 8.3 fL 9.4-12.3 L (test code = 754) NUCLEATED RED BLOOD CELLS 0 /100 WBC 0-0 (BEAKER) (test code = 413) MR THORACIC SPINE WITHOUT IV [id number] 12:50:50 [facility] : 1970 Sex: FMR THORACIC SPINE WITHOUT IV CONTRASTINDICATION: Unlisted Reason for ExamConcern for cord compressionTECHNIQUE: Multiplanar, multisequence MR images of the thoracic spinewere obtained. Images obtained without intervenous contrast.COMPARISON: MRI lumbar spine 03/30/2023.FINDINGS:Thoracic spine:Spinal cord is normal in caliber and signal intensity without evidenceof cord compression. Small disc bulges at T3-T4, T7-8, T11-12 Flattened the ventral cord with mild spinal canal stenosis without cordsignal abnormality. T10-11 moderate right neural foraminal stenosis [id number] moderate bilateral foraminal stenosis due to facet hypertrophyand ligamentum flavum redundancy.Thoracic vertebrae maintain normal height. Mild multilevel degenerativedisc changes. No evidence of acute osseous fracture or traumaticmalalignment. No paraspinal mass.Conus medullaris terminates at L1. Redundant cauda equina partiallyimaged and further reported on MRI lumbar spine.IMPRESSION:No evidence of cord compression of the thoracicspinal cord.Multilevel degenerative changes of the thoracic spine.Electronically Signed By: Ryan Buckley03/30/2023 12:52 CDTWorkstation Name: [id number] LUMBAR SPINE WITHOUT IV [id number] 12:33:57 [facility]NERLARY MARIONEE : 1970 Sex: FMR LUMBAR SPINE WITHOUT IV CONTRASTINDICATION: Unlisted Reason for ExamConcern for cord compressionCOMPARISON: NoneTECHNIQUE: Multiplanar, multisequence MR images of the lumbar spinewithout contrast. FINDINGS: For the purposes of this dictation, the 5 lowermost avflcy-ryhllfybgfgpg-fpsw vertebral bodies are labeled L1- L5.Alignment of the lumbar spine is within normal limits. Vertebral body height is maintained. Bone marrow edema is seen at the inferior L3 and superior L4 vertebralbodies and bilateralL4 pedicles, favored to be degenerative in nature.Suggestion of a synovial cyst at the right [id number] (series 301image eight).No spinal cord signal abnormality identified.Mild clumping/thickening of the cauda equina nerve roots, which mayrepresent arachnoiditis (series 301 image eight). No acute findings in the paraspinal soft tissues.Evaluation of the individual levels demonstrates:L1/L2: No significant canal or foraminal narrowing.L2/L3: Symmetric disc bulge and prominent epidural fat causing moderatespinal canal stenosisL3/L4: Posterior disc osteophyte complex, facet arthropathy, andligamentum flavum buckling with severe spinal canal stenosis withclumping of the cauda equina nerve roots and moderate to severebilateral neural foraminal stenosisL4/L5: Moderate to severely degenerated disc with endplateirregularity. Symmetric disc bulge and facet arthropathy with moderateto severe bilateralneural foraminal stenosisL5/S1: Symmetric disc bulge and facet arthropathy with mild to moderatebilateral neural foraminal stenosisIMPRESSION:1. Degenerative changes within the spine, as detailed above, withoutacute fracture or malalignment identified. No spinal cord compressionidentified.2. Severe degenerative spinal canal stenosis with clumping of the caudaequina nerve roots at L3-L4.3. Moderate tosevere bilateral neural foraminal stenosis at L3-L4 andL4-L5.4. Moderate to severely degenerated disc with endplate irregularity atL4-L5.5. Degenerative bone marrow edema at the L3- L4 level.6. Ligamentof flavum buckling versus synovial cyst at the tewgkH59-Y11 level (series 301 image eight). MRI thoracic spine can beconsidered for further evaluation.7. Mild clumping of the cauda equina nerve roots, which is nonspecificbut may represent arachnoiditis. Postcontrast imaging can be consideredfor further evaluation.Electronically Signed By: Maxim Sultana03/30/2023 12:36 CDTWorkstation Name: [id number] 11:45:01 Test Item Value Reference Range Interpretation Comments HEMOGLOBIN A1C 5.7 % See_Comment H [Automated m essage] ELECTROPHORESIS ([employer]) The system which (test code = 3811) generated this result transmitted ref erence range: <=5.6%. The reference range was not used to int erpret this result as normal/abnormal . "The A1c is measured using a NGSP-certified method. HbA1c value equal to or greater than 6.5% as thediagnosis cutoff for diabetes. An HbA1c value of 5.7- 6.4% indicates increased risk for diabetes (prediabetes)."[employer] Technician ID - ADM VALPROIC ACID LEVEL, [id number] 09:42:31 Test Item Value Reference Range Interpretation Comments VALPROIC ACID TOTAL (BEAKER) (test 76 ug/mL 50-100 code = 924) Therapeutic range for some clinical conditions may be >100 ug/mLUrinalysis w/Microscopic + Reflex to [id number] 08:43:51 Test Item Value Reference Range Interpretation Comments Color, UA (test code Yellow = 5778-6) Clarity, UA (test Clear code = 5767-9) Specific [place], UA 1.033 1.001-1.035 (test code = 5811-5) pH, UA (test code = 6.0 5.0-8.0 5803-2) Protein, UA (test 30 mg/dL Negative A code = 60485-8) Glucose, UA (test Negative Negative code = 365) Ketones, UA (test Negative Negative code = 2514-8) Bilirubin, UA (test Negative Negative code = 80842-5) Blood, UA (test code Small Negative A = 51677-6) Nitrite, UA (test Negative Negative code = 5802-4) Leukocytes, UA (test Negative Negative code = 5799-2) Urobilinogen, UA 0.2 0.2-1.0 (test code = 84214-4) RBC, UA (test code = 51 See_Comment [Autom ated 90761-6) message] The system which generated this result transmitted reference range : /HPF. The reference range was not used to interpret this result as normal/abnormal . WBC, UA (test code = 1 See_Comment [Autom ated 5821-4) message] The system which generated this result transmitted reference range : /HPF. The reference range was not used to interpret this result as normal/abnormal . Mucus (test code = Occasional 8247-9) Squam Epithel, UA See_Comment [Automate d (test code = 07491-2) messag e] The system which generated this result transmitted reference range : /HPF. The reference range was not used to interpret this result as normal/abnormal . Specimen Source (test code = 2795) LYNDSAY (test code = LYNDSAY) [employer] Res[employer] Service Technician ID - [auto][facility] Residential Service Technician ID - tech Lab Interpretation Abnormal (test code = 18090-4) [facility] Culture 2023-03-30 08:43:51 Test Item Value Reference Range Interpretation Comments Color, UA (test code Yellow = 5778-6) Clarity, UA (test Clear code = 5767-9) Specific [place], UA 1.033 1.001-1.035 (test code = 5811-5) pH, UA (test code = 6.0 5.0-8.0 5803-2) Protein, UA (test 30 mg/dL Negative A code = 37694-3) Glucose, UA (test Negative Negative code = 365) Ketones, UA (test Negative Negative code = 2514-8) Bilirubin, UA (test Negative Negative code = 11407-2) Blood, UA (test code Small Negative A = 72337-1) Nitrite, UA (test Negative Negative code = 5802-4) Leukocytes, UA (test Negative Negative code = 5799-2) Urobilinogen, UA 0.2 0.2-1.0 (test code = 95026-3) RBC, UA (test code = 51 See_Comment [Autom ated 53138-0) message] The system which generated this result transmitted reference range : /HPF. The reference range was not used to interpret this result as normal/abnormal . WBC, UA (test code = 1 See_Comment [Autom ated 5821-4) message] The system which generated this result transmitted reference range : /HPF. The reference range was not used to interpret this result as normal/abnormal . Mucus (test code = Occasional 8247-9) Squam Epithel, UA See_Comment [Automate d (test code = 09347-2) messag e] The system which generated this result transmitted reference range : /HPF. The reference range was not used to interpret this result as normal/abnormal . Specimen Source (test code = 2795) LYNDSAY (test code = LYNDSAY) [facility] Res[employer] Service Technician ID - [auto][employer] Residential Service Technician ID - tech Lab Interpretation Abnormal (test code = 08128-7) [facility] URINE [id number] 08:43:51 Test Item Value Reference Range Interpretation Comments COLOR (BEAKER) (test code = 470) Yellow CLARITY (BEAKER) (test code = 469) Clear SPECIFIC GRAVITY UA (BEAKER) (test 1.033 1.001-1.035 code = 468) PH UA (BEAKER) (test code = 467) 6.0 5.0-8.0 PROTEIN UA (BEAKER) (test code = 30 mg/dL Negative A 464) GLUCOSE UA (BEAKER) (test code = Negative Negative 365) KETONES UA (BEAKER) (test code = Negative Negative 371) BILIRUBIN UA (BEAKER) (test code = Negative Negative 462) BLOOD UA (BEAKER) (test code = Small Negative A 461) NITRITE UA (BEAKER) (test code = Negative Negative 465) LEUKOCYTE ESTERASE UA (BEAKER) Negative Negative (test code = 466) UROBILINOGEN UA (BEAKER) (test 0.2 0.2-1.0 code = 463) RBC UA (BEAKER) (test code = 519) 51 /HPF WBC UA (BEAKER) (test code = 520) 1 /HPF MUCUS (BEAKER) (test code = 1574) Occasional SQUAMOUS EPITHELIAL (BEAKER) (test < /HPF code = 516) SOURCE(BEAKER) (test code = 2795) [facility] Technician ID - [auto][facility] Residential Service Technician ID - techCOMPREHENSIVE METABOLIC [id number] 04:37:29 Test Item Value Reference Range Interpretation Comments TOTAL PROTEIN 7.2 gm/dL 6.0-8.3 (BEAKER) (test code = 770) ALBUMIN (BEAKER) 4.1 g/dL 3.5-5.0 (test code = 1145) ALKALINE 74 U/L 40-150 PHOSPHATASE (BEAKER) (test code = 346) BILIRUBIN TOTAL 0.4 mg/dL 0.2-1.2 (BEAKER) (test code = 377) SODIUM (BEAKER) 138 meq/L 136-145 (test code = 381) POTASSIUM (BEAKER) 3.8 meq/L 3.5-5.1 (test code = 379) CHLORIDE (BEAKER) 104 meq/L 98-107 (test code = 382) CO2 (BEAKER) (test 21 meq/L 22-29 L code = 355) BLOOD UREA 11 mg/dL 7-21 NITROGEN (BEAKER) (test code = 354) CREATININE 0.77 mg/dL 0.57-1.25 (BEAKER) (test code = 358) GLUCOSE RANDOM 151 mg/dL 70-105 H (BEAKER) (test code = 652) CALCIUM (BEAKER) 8.8 mg/dL 8.4-10.2 (test code = 697) AST (SGOT) 26 U/L 5-34 (BEAKER) (test code = 353) ALT (SGPT) 18 U/L 6-55 (BEAKER) (test code = 347) EGFR (BEAKER) 93 Interpretatio n of eGFR (test code = [...] not appl icable for dialysis patien ts [employer] [employer] Technician ID - MATT BPT/NLTW9154-24-43 04:30:17 Test Item Value Reference Range Interpretation Comments PROTIME (BEAKER) (test 13.8 seconds 11.9-14.2 code = 759) INR (BEAKER) (test 1.13 See_Comment [Automat ed code = 370) message] The sy stem which generated this result transmitted reference range : <=5.90. The reference range was not used to interpret this result as normal/abnormal . PARTIAL THROMBOPLASTIN 27.4 seconds 22.5-36.0 TIME (BEAKER) (test code = 760) RECOMMENDED COUMADIN/WARFARIN INR THERAPY RANGESSTANDARD DOSE: 2.0 - 3.0 Includes: PROPHYLAXIS for venous thrombosis, systemic embolization; TREATMENT for venous thrombosis and/or pulmonary embolus.HIGH RISK: Target INR is 2.5-3.5 for patients with mechanical heart valves.CBC (HEMOGRAM ONLY)2023-03-30 04:13:37 Test Item Value Reference Range Interpretation Comments WHITE BLOOD CELL COUNT (BEAKER) 6.8 K/ L 3.5-10.5 (test code = 775) RED BLOOD CELL COUNT (BEAKER) 4.73 M/ L 3.93-5.22 (test code = 761) HEMOGLOBIN (BEAKER) (test code = 12.8 GM/DL 11.2-15.7 410) HEMATOCRIT (BEAKER) (test code = 42.1 % 34.1-44.9 411) MEAN CORPUSCULAR VOLUME (BEAKER) 89 fL 79-95 (test code = 753) MEAN CORPUSCULAR HEMOGLOBIN 27.1 pg 25.6-32.2 (BEAKER) (test code = 751) MEAN CORPUSCULAR HEMOGLOBIN CONC 30.4 GM/DL 32.2-35.5 L (BEAKER) (test code = 752) RED CELL DISTRIBUTION WIDTH 18.1 % 11.7-14.4 H (BEAKER) (test code = 412) PLATELET COUNT (BEAKER) (test 406 K/CU MM 150-450 code = 756) MEAN PLATELET VOLUME (BEAKER) 8.3 fL 9.4-12.3 L (test code = 754) NUCLEATED RED BLOOD CELLS 0 /100 WBC 0-0 (BEAKER) (test code = 413) [id number] 17:14:06 Test Item Value Reference Range Interpretation Comments MAGNESIUM (test code = 5928069116) 1.9 mg/dL 1.7-2.4 Lab Interpretation (test code = Normal 43799-0) [facility] CampusCOMP. METABOLIC PANEL (89598)2022-12-11 15:16:25 Test Item Value Reference Range Interpretation Comments NA (test code = 139 mmol/L 135-145 0194262630) K (test code = 3.5 mmol/L 3.5-5.0 0424688459) CL (test code = 107 mmol/L 98-108 4130235158) CO2 TOTAL (test code = 24 mmol/L 23-31 1731028529) AGAP (test code = 8 2-16 9116671836) BUN (test code = 9 mg/dL 7-23 5232038929) GLUCOSE (test code = 129 mg/dL 70-110 H 3147261276) CREATININE (test code = 0.68 mg/dL 0.50-1.04 4338123580) TOTAL BILI (test code = 0.5 mg/dL 0.1-1.0 2357860199) CALCIUM (test code = 8.9 mg/dL 8.6-10.6 3445998364) T PROTEIN (test code = 6.3 g/dL 6.3-8.2 2703913154) ALBUMIN (test code = 3.8 g/dL 3.5-5.0 5466584584) ALK PHOS (test code = 87 U/L 34-122 1654268029) ALTv (test code = 24 U/L 5-35 1742-6) AST(SGOT) (test code = 21 U/L 13-40 5480030054) eGFR (test code = 91.6 mL/min/1.73m2 6157398605) LYNDSAY (test code = LYNDSAY) Association of [...] tests). Lab Interpretation Abnormal (test code = 86508-8) [facility] CampusJESS [id number] 15:10:45 Test Item Value Reference Range Interpretation Comments TROPONIN I (test code = 0.015 ng/mL <=0.034 1116900998) LYNDSAY (test code = LYNDSAY) Reference (Normal) [...] biotin. Lab Interpretation Normal (test code = 15593-6) [facility] CampusN-TERMINAL [id number] 15:07:48 Test Item Value Reference Range Interpretation Comments NT-proBNP (test code = 1460 pg/mL <=125 H 6174628079) LYNDSAY (test code = LYNDSAY) Biotin has been reported to cause a negative bias, interpret results relative to patient's use of biotin. Lab Interpretation (test Abnormal code = 64276-4) [facility] CampusD-[id number] 14:45:24 Test Item Value Reference Interpretation Comments Range D-DIMER (test code = 0.99 See_Comment H [Autom ated 2092710436) message] The system which generated this result [...] diagnosis. Lab Interpretation Abnormal (test code = 34386-2) [facility] WITH [id number] 14:14:48 Test Item Value Reference Range Interpretation [...] RDW-SD (test code = 47.8 fL 39.0-49.9 86779-1) RDW-CV (test code = 16.9 % 12.0-15.5 H 788-0) PLT (test code = 507 See_Comment H [Automated 777-3) message] The sy stem which generated this result transmitted reference range : 166 - 358 10*3/ ?L. The reference r zoe was not used to interpret this result as normal/abnormal . MPV (test code = 8.2 fL 9.5-12.9 L 86571-4) NRBC/100 WBC (test 0.0 See_Comment [Automat ed code = 7883414181) message] The system which generated this result transmitted reference range : 0.0 - 10.0 /100 WBCs. The refer ence range was not u sed to interpret th is result as normal/abnormal . NRBC x10^3 (test code See_Comment [Auto mated = 4679414682) message] The s ystem which generated this result transmitted reference range : 10*3/?L. The reference range was not used to interpret this result as normal/abnormal . GRAN MAT (NEUT) % 64.5 % (test code = 770-8) IMM GRAN % (test code 0.30 % = 8813730340) LYMPH % (test code = 25.6 % 736-9) MONO % (test code = 7.5 % 5905-5) EOS % (test code = 1.0 % 713-8) BASO % (test code = 1.1 % 706-2) GRAN MAT x10^3(ANC) 5.07 10*3/uL 1.88-7.09 (test code = 6406532297) IMM GRAN x10^3 (test 0.00-0.06 code = 1593968031) LYMPH x10^3 (test code 2.01 10*3/uL 1.32-3.29 = 731-0) MONO x10^3 (test code 0.59 10*3/uL 0.33-0.92 = 742-7) EOS x10^3 (test code = 0.08 10*3/uL 0.03-0.39 711-2) BASO x10^3 (test code 0.09 10*3/uL 0.01-0.07 H = 704-7) Lab Interpretation Abnormal (test code = 09804-0) [facility] CampusRPR2023-01-17 13:17:22 Test Item Value Reference Range Interpretation Comments RPR SCREEN ([employer]) (test code = Nonreactive Nonreactive 420) HEMOGLOBIN [id number] 10:39:49 Test Item Value Reference Range Interpretation Comments HEMOGLOBIN A1C 5.8 % See_Comment H [Automated m essage] ELECTROPHORESIS ([facility]) The system which (test code = 3811) generated this result transmitted ref erence range: <=5.6%. The reference range was not used to int erpret this result as normal/abnormal . "The A1c is measured using a NGSP-certified method. HbA1c value equal to or greater than 6.5% as thediagnosis cutoff for diabetes. An HbA1c value of 5.7- 6.4% indicates increased risk for diabetes (prediabetes)."[employer] Res[employer] Service Technician ID - ADM VITAMIN [id number] 22:48:27 Test Item Value Reference Range Interpretation Comments VITAMIN B12 ([facility]) (test code = 227 pg/mL 213-816 774) [facility] Residential Service Technician ID - MARCOTSH/FREE T4 IF [id number] 22:08:28 Test Item Value Reference Range Interpretation Comments THYROID STIMULATING HORMONE 3.309 uIU/mL 0.350-4.940 (BEAKER) (test code = 772) [employer] Residential Service Technician ID - LEONHIV-1 ANTIGEN WITH HIV-1/2 [id number] 22:08:28 Test Item Value Reference Range Interpretation Comments HIV-1 ANTIGEN WITH HIV 1\\T\\2 Nonreactive Nonreactive ANTIBODY (2) (BEAKER) (test code = 2586) [employer] Residential Service Technician ID - JSC-REACTIVE [id number] 21:49:44 Test Item Value Reference Range Interpretation Comments C-REACTIVE PROTEIN (BEAKER) (test 0.35 mg/dL 0.00-0.50 code = 676) [employer] Residential Service Technician ID - JSCOMPREHENSIVE METABOLIC [id number] 21:49:43 Test Item Value Reference Range Interpretation [...] not appl icable for dialysis patien ts [facility] Residential Service Technician ID - JSLIPID [id number] 21:49:43 Test Item Value Reference Range Interpretation [...] Borderline 130-159 High 160-189 Very High >=190 [employer] Residential Service Technician ID - JSCBC W/PLT COUNT & AUTO [id number] 21:34:03 Test Item Value Reference Range Interpretation [...] Interpretation Comments Height (test code = in 7249019071) Weight (test code = lbs 7940102311) Systolic BP (test code = mmHg 7337975871) Diastolic BP (test code mmHg = 9558466196) Heart Rate (test code = bpm 3359174542) BSA (test code = 2.00 m2 5172395530) Ao root diam (test code 3.20 cm = 7507385379) Aortic root (test code = 3.2 cm 6546674373) Ao root annulus (test 3.2 cm code = 0104802535) LVOT diameter (test code 1.99 cm = 3473399558) LVOT area (test code = 3.10 cm2 7579928488) LVIDD (test code = 5.10 cm 1191147548) Left Ventricular End 123.0 mL Diastolic Volume by Teichholz Method (test code = 3439624) IVS (test code = 1.34 cm 7306960015) Interventricular Septum 1.34 cm Diastolic Thickness by 2D (test code = 8625068) LVPWD (test code = 1.34 cm 2332796846) PW (test code = 1.34 cm 0.6-1.2 6556412800) EF(Teich) (test code = 41.80 % 4737059324) LVIDS (test code = 4.00 cm 8123947957) Left Ventricular End 71.5 mL Systolic Volume by Teichholz Method (test code = 2217014) FS (test code = 21 % 8381848275) EF - 2D (test code = 41.80 % 71001622) LA size (test code = 4.6 cm 9824317677) Pulmonic Regurgitant End 119.4 cm/s Max Velocity (test code = 9565192611) LAV(MOD-sp4) (test code 95.00 mL = 4606350731) E wave decelartion time 0.15 s (test code = 3947490313) MV stenosis pressure 1/2 45.6 ms time (test code = 1871632623) MV Peak A Evette (test code 123.8 cm/s = 3701697123) MV Peak E Evette (test code 109.7 cm/s = 8425885277) E/A ratio (test code = ratio 4106884630) MR max PG (test code = 87.20 mm[Hg] 0571536056) MR max evette (test code = 466.90 cm/s 2065734135) Mr max evette (test code = 466.9 m/s 7591078711) MV Prop V (test code = 51.00 cm/s 0196610759) MV E/e' septal (test 8.1 cm/s code = 6707667041) Tapse (test code = 2.21 cm 6476216617) LVOT stroke volume (test 49.80 cm3 code = 4742127950) LVOT peak evette (test code 89.1 cm/s = 4205989571) LVOT mn grad (test code mmHg = 2860318166) AV LVOT peak gradient mmHg (test code = 5162574259) LVOT peak VTI (test code 16.0 cm = 8869029002) LV V1 mean (test code = 64.30 cm/s 4694587719) Aortic valve mean 133.8 cm/s velocity (test code = 4017712296) Ao peak evette (test code = 175.3 cm/s 8260879403) Ao VTI (test code = 32.2 cm 0250683415) AV area by cont VTI 1.6 cm2 (test code = 6509206188) AV area peak evette (test 1.6 cm2 code = 7773569131) Ao max PG (test code = 12.30 mm[Hg] 5333852110) AV peak gradient (test mmHg code = 5413158105) AV valve area (test code 1.55 cm2 = 2763341054) AV mean gradient (test mmHg code = 1232448066) AV regurgitation 358.5 ms pressure 1/2 time (test code = 0477326259) AI dec slope (test code 364.20 cm/s2 = 8791834057) AI max evette (test code = 445.80 cm/s 9360520871) AI max PG (test code = 79.50 mm[Hg] 4781594995) Radiology Study observation (narrative) (test code = 89258-3) LYNDSAY (test code = LYNDSAY) ?Left?Ventricle: Left [...] mL of Lumason ultrasound enhancing agent used. [facility]POCT GLUCOSE (AUTOMATED)2022-08-01 10:43:32 Test Item Value Reference Range Interpretation Comments POCT GLU (test code = 5779450726) 148 mg/dL 70-110 H Lab Interpretation (test code = Abnormal 46785-6) [facility] CampusACTIVATED PARTIAL THRMPLAS [id number] 18:39:45 Test Item Value Reference Range Interpretation Comments APTT Patient (test See_Comment [Automat ed code = 3173-2) message] The system which generated this result transmitted reference range : 23 - 38 Seconds . The reference range was not used to interpr et this result as normal/abnormal . LYNDSAY (test code = LYNDSAY) The [facility] patient population mean normal value for aPTT is 30 seconds. Lab Interpretation Normal (test code = 00464-7) [facility] CampusPROTHROMBIN TIME / [id number] 18:37:42 Test Item Value Reference Range Interpretation [...] tions. Lab Interpretation (test Normal code = 79408-9) [facility] CampusTROPONIN [id number] 18:32:01 Test Item Value Reference Interpretation Comments Range TROPONIN I (test 0.019 ng/mL See_Comment [Automated code = 7503784642) message] The system which generated this result [...] biotin. Lab Interpretation Normal (test code = 49671-3) [facility] CampusN-TERMINAL [id number] 18:29:01 Test Item Value Reference Range Interpretation Comments NT-proBNP (test code 2770 pg/mL See_Comment H [Autom ated = 3549115584) message] The system which generated this result transmitted reference range : <=125. The reference range was not used to interpret this result as normal/abnormal . LYNDSAY (test code = LYNDSAY) Biotin has been reported to cause a negative bias, interpret results relative to patient's use of biotin. Lab Interpretation Abnormal (test code = 44118-0) [facility] CampusCOMP. METABOLIC PANEL (15860)2022-07-31 18:21:42 Test Item Value Reference Range Interpretation Comments NA (test code = 136 mmol/L 135-145 9028005811) K (test code = 4.6 mmol/L 3.5-5.0 0284110129) CL (test code = 104 mmol/L 98-108 7669498265) CO2 TOTAL (test code = 26 mmol/L 23-31 6269545900) AGAP (test code = 2-16 2395004496) BUN (test code = 9 mg/dL 7-23 3945901150) GLUCOSE (test code = 97 mg/dL 70-110 1615250373) CREATININE (test code = 0.64 mg/dL 0.50-1.04 6717975713) TOTAL BILI (test code = 0.5 mg/dL 0.1-1.0 0191403427) CALCIUM (test code = 8.2 mg/dL 8.6-10.6 L 6472947365) T PROTEIN (test code = 6.5 g/dL 6.3-8.2 7428900158) ALBUMIN (test code = 3.9 g/dL 3.5-5.0 3997995384) ALK PHOS (test code = 93 U/L 34-122 2528896165) ALTv (test code = 18 U/L 5-35 1742-6) AST(SGOT) (test code = 19 U/L 13-40 9912338355) eGFR (test code = mL/min/1.73m2 1274546112) LYNDSAY (test code = LYNDSAY) Association of [...] tests). Lab Interpretation Abnormal (test code = 22306-1) [facility] CampusLIPASE2023-01-12 18:21:01 Test Item Value Reference Range Interpretation Comments LIPASE (test code = 1160912401) 54 U/L 0-220 Lab Interpretation (test code = Normal 75472-2) [facility] WITH [id number] 18:07:00 Test Item Value Reference Range Interpretation Comments WBC (test code = See_Comment [Automated 4390-2) message] The sy stem which generated this [...] (test code = 53.1 fL 39.0-49.9 H 34840-9) RDW-CV (test code = 17.0 % 12.0-15.5 H 788-0) PLT (test code = See_Comment H [Automated 777-3) message] The sy stem which generated this result transmitted reference range : 166 - 358 10*3/ ?L. The reference r zoe was not used to interpret this result as normal/abnormal . MPV (test code = 8.2 fL 9.5-12.9 L 46947-1) NRBC/100 WBC (test See_Comment [Automat ed code = 3071849845) message] The system which generated this result transmitted reference range : 0.0 - 10.0 /100 WBCs. The refer ence range was not u sed to interpret th is result as normal/abnormal . NRBC x10^3 (test code See_Comment [Auto mated = 8130997838) message] The s ystem which generated this result transmitted reference range : 10*3/?L. The reference range was not used to interpret this result as normal/abnormal . GRAN MAT (NEUT) % 64.0 % (test code = 770-8) IMM GRAN % (test code 0.40 % = 3757621163) LYMPH % (test code = 27.3 % 736-9) MONO % (test code = 6.5 % 5905-5) EOS % (test code = 1.1 % 713-8) BASO % (test code = 0.7 % 706-2) GRAN MAT x10^3(ANC) 5.46 10*3/uL 1.88-7.09 (test code = 5873836995) IMM GRAN x10^3 (test 0.03 10*3/uL 0.00-0.06 code = 1982612252) LYMPH x10^3 (test code 2.32 10*3/uL 1.32-3.29 = 731-0) MONO x10^3 (test code 0.55 10*3/uL 0.33-0.92 = 742-7) EOS x10^3 (test code = 0.09 10*3/uL 0.03-0.39 711-2) BASO x10^3 (test code 0.06 10*3/uL 0.01-0.07 = 704-7) Lab Interpretation Abnormal (test code = 54765-9) [facility] METABOLIC PANEL (NA, K, CL, CO2, GLUCOSE, BUN, CREATININE, CA)2022-05-08 06:37:01 Test Item Value Reference Range Interpretation Comments NA (test code = 137 mmol/L 135-145 0467506677) K (test code = 3.8 mmol/L 3.5-5 2138499564) CL (test code = 103 mmol/L 98-108 7077725605) CO2 TOTAL (test code = 24 mmol/L 23-31 5452601248) AGAP (test code = 2-16 4498863991) BUN (test code = 13 mg/dL 7-23 0127452562) GLUCOSE (test code = 90 mg/dL 70-110 1449332083) CREATININE (test code = 0.69 mg/dL 0.5-1.04 4666428880) CALCIUM (test code = 8.5 mg/dL 8.6-10.6 L 7324000311) eGFR (test code = mL/min/1.73m2 7160987613) LYNDSAY (test code = LYNDSAY) Association of [...] tests). Lab Interpretation Abnormal (test code = 23640-4) [facility] Test Item Value Reference Range Interpretation Comments MAGNESIUM (test code = 2240488427) 2.1 mg/dL 1.7-2.4 Lab Interpretation (test code = Normal 81776-7) [facility]PHOS[facility]2022-10-20 06:37:01 Test Item Value Reference Range Interpretation Comments PHOSPHORUS (test code = 8034897144) 4.7 mg/dL 2.5-5 Lab Interpretation (test code = Normal 78486-3) [facility] CampusCB WITH [id number] 06:11:54 Test Item Value Reference Range Interpretation [...] (test code = 51.0 fL 39-49.9 H 00933-3) RDW-CV (test code = 16.5 % 12-15.5 H 788-0) PLT (test code = See_Comment H [Automated 777-3) message] The sy stem which generated this result transmitted reference range : 166 - 358 10*3/ ?L. The reference r zoe was not used to interpret this result as normal/abnormal . MPV (test code = 8.3 fL 9.5-12.9 L 20674-6) NRBC/100 WBC (test See_Comment [Automat ed code = 8836228771) message] The system which generated this result transmitted reference range : 0.0 - 10.0 /100 WBCs. The refer ence range was not u sed to interpret th is result as normal/abnormal . NRBC x10^3 (test code See_Comment [Auto mated = 5831930552) message] The s ystem which generated this result transmitted reference range : 10*3/?L. The reference range was not used to interpret this result as normal/abnormal . GRAN MAT (NEUT) % 64.5 % (test code = 770-8) IMM GRAN % (test code 0.50 % = 6954358038) LYMPH % (test code = 27.1 % 736-9) MONO % (test code = 6.6 % 5905-5) EOS % (test code = 0.6 % 713-8) BASO % (test code = 0.7 % 706-2) GRAN MAT x10^3(ANC) 5.28 10*3/uL 1.88-7.09 (test code = 3235608581) IMM GRAN x10^3 (test 0.04 10*3/uL 0-0.06 code = 3079760648) LYMPH x10^3 (test code 2.22 10*3/uL 1.32-3.29 = 731-0) MONO x10^3 (test code 0.54 10*3/uL 0.33-0.92 = 742-7) EOS x10^3 (test code = 0.05 10*3/uL 0.03-0.39 711-2) BASO x10^3 (test code 0.06 10*3/uL 0.01-0.07 = 704-7) Lab Interpretation Abnormal (test code = 97851-8) [facility]POCT GLUCOSE (AUTOMATED)2022-05-07 01:18:10 Test Item Value Reference Range Interpretation Comments POCT GLU (test code = 1814495122) 120 mg/dL 70-110 H Lab Interpretation (test code = Abnormal 39768-3) [facility] CampusType and Screen - ONCE [id number] 05:46:35 Test Item Value Reference Range Interpretation Comments ABO & RH (test code O POSITIVE Performe d at [facility] = 20) Laboratory [facility]3 [address] [facility] [address]Lsvs Free: [phone] A No. [id number] IAT (test code = Negative Performed a t [facility] 1185) [facility] Blood [facility] [address] [place], [place] [address]Charles ortiz [address]Zbor Free: [phone] A No. [id number] [facility] METABOLIC PANEL (NA, K, CL, CO2, GLUCOSE, BUN, CREATININE, CA)2022-05-05 08:22:57 Test Item Value Reference Range Interpretation Comments NA (test code = 136 mmol/L 135-145 4206611142) K (test code = 4.9 mmol/L 3.5-5 7008733467) CL (test code = 108 mmol/L 98-108 5544361984) CO2 TOTAL (test code = 22 mmol/L 23-31 L 5067031436) AGAP (test code = 2-16 7624264050) BUN (test code = 12 mg/dL 7-23 0075659827) GLUCOSE (test code = 155 mg/dL 70-110 H 9006028681) CREATININE (test code = 0.63 mg/dL 0.5-1.04 7941783100) CALCIUM (test code = 8.4 mg/dL 8.6-10.6 L 0217765419) eGFR (test code = mL/min/1.73m2 3859386878) LYNDSAY (test code = LYNDSAY) Association of [...] tests). Lab Interpretation Abnormal (test code = 12671-8) [facility] CampusPROTHROMBIN TIME / [id number] 08:22:37 Test Item Value Reference Range Interpretation Comments PROTIME PATIENT (test See_Comment [Auto mated message] code = 5964-2) The system [employer] Android ich generated this result transmitted ref erence range: 10.1 - 1 2.6 Seconds. The re ference range was not u sed to interpret this result as normal/abnor mal. INR (test code = 6301-6) Nor mal INR <1.1; Warfarin Therap eutic range 2.0 to 3. 0 or 2.5 to 3.5, dep ending upon the indica tions. Lab Interpretation (test Normal code = 68403-6) [facility] CampusaPTT2022-10-17 08:22:37 Test Item Value Reference Range Interpretation Comments APTT Patient (test code = See_Comment [ Automated message] 3173-2) The system Empressr h generated this result transmitted ref erence range: 26 - 36 Seconds. The re ference range was not u sed to interpret this result as normal/abnor mal. Lab Interpretation (test Normal code = 21271-0) [facility] CampusFIBRINOGEN2022-10-17 08:22:37 Test Item Value Reference Range Interpretation Comments Fibrinogen (test code = 4163591099) 294 mg/dL 167-453 Lab Interpretation (test code = Normal 97510-7) [facility] CampusCBC WITH [id number] 08:15:01 Test Item Value Reference Range Interpretation [...] (test code = 52.9 fL 39-49.9 H 77898-6) RDW-CV (test code = 16.8 % 12-15.5 H 788-0) PLT (test code = See_Comment H [Automated 777-3) message] The sy stem which generated this result transmitted reference range : 166 - 358 10*3/ ?L. The reference r zoe was not used to interpret this result as normal/abnormal . MPV (test code = 8.3 fL 9.5-12.9 L 36063-1) NRBC/100 WBC (test See_Comment [Automat ed code = 4713005554) message] The system which generated this result transmitted reference range : 0.0 - 10.0 /100 WBCs. The refer ence range was not u sed to interpret th is result as normal/abnormal . NRBC x10^3 (test code See_Comment [Auto mated = 3344924893) message] The s ystem which generated this result transmitted reference range : 10*3/?L. The reference range was not used to interpret this result as normal/abnormal . GRAN MAT (NEUT) % 86.4 % (test code = 770-8) IMM GRAN % (test code 0.40 % = 3593077657) LYMPH % (test code = 11.7 % 736-9) MONO % (test code = 1.1 % 5905-5) EOS % (test code = 0.0 % 713-8) BASO % (test code = 0.4 % 706-2) GRAN MAT x10^3(ANC) 6.36 10*3/uL 1.88-7.09 (test code = 8941265948) IMM GRAN x10^3 (test 0.03 10*3/uL 0-0.06 code = 8112055725) LYMPH x10^3 (test code 0.86 10*3/uL 1.32-3.29 L = 731-0) MONO x10^3 (test code 0.08 10*3/uL 0.33-0.92 L = 742-7) EOS x10^3 (test code = 0.03-0.39 L 711-2) BASO x10^3 (test code 0.03 10*3/uL 0.01-0.07 = 704-7) Lab Interpretation Abnormal (test code = 73201-1) [facility] CampusVITAMIN D, [id number] 20:14:03 Test Item Value Reference Range Interpretation Comments VIT D 25OH (test code = 22 ng/mL 25-80 L 97052-8) LYNDSAY (test code = LYNDSAY) Deficiency: <20 ng/mLInsufficiency: 20-24 ng/mLOptimal: 25-80 ng/mL Lab Interpretation (test Abnormal code = 94836-3) [facility] CampusBASIC METABOLIC PANEL (NA, K, CL, CO2, GLUCOSE, BUN, CREATININE, CA)2022-04-15 11:27:57 Test Item Value Reference Range Interpretation Comments NA (test code = 138 mmol/L 135-145 2242210466) K (test code = 3.9 mmol/L 3.5-5 2187656936) CL (test code = 106 mmol/L 98-108 6433460347) CO2 TOTAL (test code = 23 mmol/L 23-31 0660595360) AGAP (test code = 2-16 7086512978) BUN (test code = 10 mg/dL 7-23 5433717111) GLUCOSE (test code = 91 mg/dL 70-110 8979058307) CREATININE (test code = 0.65 mg/dL 0.5-1.04 7340104192) CALCIUM (test code = 8.1 mg/dL 8.6-10.6 L 6278613258) eGFR (test code = mL/min/1.73m2 2672297480) LYNDSAY (test code = LYNDSAY) Association of [...] tests). Lab Interpretation Abnormal (test code = 34601-2) [facility] CampusSTROKE Protocol - Transthoracic echo (TTE) 2022-04-14 22:07:33 Test Item Value Reference Range Interpretation Comments Height (test code = in 1299695767) Weight (test code = lbs 2584324003) Systolic BP (test code = mmHg 7346250446) Diastolic BP (test code mmHg = 4669656474) Heart Rate (test code = bpm 7640931756) BSA (test code = 1.94 m2 3437405968) TASV (test code = 15.5 cm/s 5849970880) LVIDD (test code = 6.00 cm 8626589851) Left Ventricular End 183.0 mL Diastolic Volume by Teichholz Method (test code = 2109544) IVS (test code = 1.09 cm 2710685834) Interventricular Septum 1.09 cm Diastolic Thickness by 2D (test code = 3255979) LVPWD (test code = 0.94 cm 5870449392) PW (test code = 0.94 cm 0.6-1.6 8255489431) EF(Teich) (test code = 40.30 % 5659729333) LVIDS (test code = 4.80 cm 4315735247) Left Ventricular End 109.2 mL Systolic Volume by Teichholz Method (test code = 7986345) FS (test code = 20 % 6234067411) EF - 2D (test code = 40.30 % 76198286) LVOT diameter (test code 2.05 cm = 0136685881) LVOT area (test code = 3.30 cm2 7707261066) Ao root diam (test code 3.10 cm = 0510433800) Aortic root (test code = 3.1 cm 6433800779) Ao root annulus (test 3.1 cm code = 1092951475) LA size (test code = 4.2 cm 3052179479) LAV(MOD-sp4) (test code 64.90 mL = 1107426473) MV Peak A Evette (test code 115.7 cm/s = 5297559444) E wave decelartion time 0.15 s (test code = 8289454262) MV Peak E Evette (test code 106.2 cm/s = 8820267163) E/A ratio (test code = ratio 1644474837) LVOT stroke volume (test 48.30 cm3 code = 1894738103) LVOT peak evette (test code 78.4 cm/s = 2416995809) LVOT mn grad (test code mmHg = 1576367436) AV LVOT peak gradient mmHg (test code = 5350640005) LVOT peak VTI (test code 14.7 cm = 3761159461) LV V1 mean (test code = 51.40 cm/s 7401762918) Ao peak evette (test code = 154.7 cm/s 2140085115) AV area peak evette (test 1.7 cm2 code = 6822240827) Ao max PG (test code = 9.60 mm[Hg] 4976010425) AV peak gradient (test mmHg code = 7215126303) AV regurgitation 257.3 ms pressure 1/2 time (test code = 4010636224) AI dec slope (test code 498.10 cm/s2 = 4362796004) AI max evette (test code = 437.60 cm/s 3715086459) AI max PG (test code = 77.80 mm[Hg] 8908192401) Tapse (test code = 2.19 cm 2693364651) LA Volume Index (BP) 32.0 mL/m2 (test code = 9247258155) LA volume (BP) (test 62.1 mL code = 3103906965) LAV(MOD-sp2) (test code 52.70 mL = 5484349884) A4C EF (test code = 44.80 % 7080039131) EF(sp4-el) (test code = 45.20 % 4809030986) SV(MOD-sp4) (test code = 71.20 mL 4642252555) SV(sp4-el) (test code = 73.90 mL 6474345424) LV Diastolic Volume (BP) 146.3 mL (test code = 6273202509) A2C EF (test code = 52.00 % 1871339117) EF(MOD-bp) (test code = 46.70 % 9959552365) EF(sp2-el) (test code = 52.40 % 2770792565) LV Systolic Volume (BP) 77.9 mL (test code = 7746108464) SV(MOD-bp) (test code = 68.40 mL 3040136629) SV(MOD-sp2) (test code = 69.20 mL 1518576781) EF (test code = 2809327095) Left Ventricular Stroke 68.4 mL Volume by 2-D Biplane-MOD (test code = 7699379) Radiology Study observation (narrative) (test code = 45263-1) LYNDSAY (test code = LYNDSAY) ?Left?Ventricle: Left [...] agent used and saline contrast was performed. [facility] CampusKEPPRA (LEVETIRACETAM)2022-04-14 16:48:36 Test Item Value Reference Range Interpretation Comments KEPPRA (test code = 12-46 L 9456917719) LYNDSAY (test code = LYNDSAY) Therapeutic range: 12-46 ?g/mL ? ?Toxic: Not well established.Test developed and characteristics determined by [facility] Laboratory Services. Lab Interpretation Abnormal (test code = 12467-6) [facility] Metabolic Panel (Na, K, Cl, CO2, Glucose, BUN, Creatinine, Ca)2022-04-14 10:50:11 Test Item Value Reference Range Interpretation Comments NA (test code = 136 mmol/L 135-145 8555525211) K (test code = 3.8 mmol/L 3.5-5 4707344902) CL (test code = 105 mmol/L 98-108 9497492949) CO2 TOTAL (test code = 25 mmol/L 23-31 2679807950) AGAP (test code = 2-16 5885890393) BUN (test code = 9 mg/dL 7-23 8610157155) GLUCOSE (test code = 101 mg/dL 70-110 4208878082) CREATININE (test code = 0.66 mg/dL 0.5-1.04 6264753007) CALCIUM (test code = 8.1 mg/dL 8.6-10.6 L 1704152643) eGFR (test code = mL/min/1.73m2 3742425092) LYNDSAY (test code = LYNDSAY) Association of [...] tests). Lab Interpretation Abnormal (test code = 54453-7) [facility], [id number] 10:50:11 Test Item Value Reference Range Interpretation Comments MAGNESIUM (test code = 6793304822) 1.9 mg/dL 1.7-2.4 Lab Interpretation (test code = Normal 95524-8) [facility] CampusThyroid Stimulating [id number] 22:21:44 Test Item Value Reference Range Interpretation Comments TSH (test code = See_Comment Biotin has been 7737665426) reported to cau se a negative bias, interpret resul ts relative to pat radha's use of biotin. [Automated mess age] The system ZAP generated this result transmitted ref erence range: 0.45 - 4 .70 mIU/L. The refe rence range was not u sed to interpret this result as normal/abnor mal. Lab Interpretation (test Normal code = 29154-4) [facility] CampusGLYCOSYLATED HEMOGLOBIN (A1C)2022-04-13 21:53:43 Test Item Value Reference Range Interpretation Comments HGB A1C (test code = 5.8 % 4-5.7 H 4548-4) LYNDSAY (test code = LYNDSAY) Reference RangesNormal: <5.7%Prediabetes: 5.7 - 6.4%Diabetes: > 6.5% Lab Interpretation (test Abnormal code = 83601-7) [facility] CampusFA[facility]LA[facility] (28716)(TOTAL CHOLESTEROL, TRIGLYCERIDES, HDL)2022-04-13 21:34:53 Test Item Value Reference Range Interpretation Comments CHOL (test code = 201 mg/dL 120-200 H 2310159308) HDL (test code = 56 mg/dL See_Comment [Automated message] 7603395732) The system ZAP generated this result transmit sherice reference range : >=50. The refer ence range was not u sed to interpret th is result as normal/abnormal . HDLC RATIO (test code = See_Comment [Au tomated message] 9733419785) The system ZAP generated this result transmit sherice reference range : <=4.5. The refe rence range was not u sed to interpret th is result as normal/abnormal . TRIG (test code = 355 mg/dL 30-170 H 6133226665) LDL CHOL (test code = 74 mg/dL See_Comment [Auto mated message] 34271-7) The system ZAP generated this result transmit sherice reference range : <=160. The refe rence range was not u sed to interpret th is result as normal/abnormal . VLDL (test code = 71 mg/dL 5-60 H 9171749864) Lab Interpretation (test Abnormal code = 18755-9) [facility] CampusTroponin I - Code [id number] 18:46:27 Test Item Value Reference Interpretation Comments Range TROPONIN I (test 0.013 ng/mL See_Comment [Automated code = 7740059270) message] The system which generated this result [...] biotin. Lab Interpretation Normal (test code = 43016-1) [facility] CampusBasi Metabolic Panel (NA, K, CL, CO2, Glucose, BUN, Creatinine, CA) - Code [id number] 18:35:07 Test Item Value Reference Range Interpretation Comments NA (test code = 136 mmol/L 135-145 0475564428) K (test code = 4.3 mmol/L 3.5-5 0514629053) CL (test code = 105 mmol/L 98-108 8464360816) CO2 TOTAL (test code = 27 mmol/L 23-31 4324099656) AGAP (test code = 2-16 3011232369) BUN (test code = 8 mg/dL 7-23 7473469515) GLUCOSE (test code = 130 mg/dL 70-110 H 4489963374) CREATININE (test code = 0.75 mg/dL 0.5-1.04 9638480982) CALCIUM (test code = 8.5 mg/dL 8.6-10.6 L 8657520477) eGFR (test code = mL/min/1.73m2 7667419038) LYNDSAY (test code = LYNDSAY) Association of [...] tests). Lab Interpretation Abnormal (test code = 91518-0) [facility] CampusaPTT - Code [id number] 18:32:46 Test Item Value Reference Range Interpretation Comments APTT Patient (test See_Comment [Automat ed code = 3173-2) message] The system which generated this result transmitted reference range : 23 - 38 Seconds . The reference range was not used to interpr et this result as normal/abnormal . LYNDSAY (test code = LYNDSAY) The [facility] patient population mean normal value for aPTT is 30 seconds. Lab Interpretation Normal (test code = 37769-2) [facility] CampusProthrombin Time / INR - Code [id number] 18:30:45 Test Item Value Reference Range Interpretation Comments PROTIME PATIENT (test See_Comment [Auto mated message] code = 5964-2) The system [employer] generated this result transmitted ref erence range: 12.0 - 1 4.7 Seconds. The re ference range was not u sed to interpret this result as normal/abnor mal. INR (test code = 6301-6) Nor mal INR <1.1; Warfarin Therap eutic range 2.0 to 3. 0 or 2.5 to 3.5, dep ending upon the indica tions. Lab Interpretation (test Normal code = 21969-9) [facility] without Diff - Code [id number] 18:23:07 Test Item Value Reference Range Interpretation Comments WBC (test code = 6690-2) See_Comment [A utomated message] The system ZAP generated this result transmit sherice reference range : 4.30 - 11.10 10*3/?L. The reference range was not used to interpret this result as normal/abnormal . RBC (test code = 789-8) See_Comment [Au tomated message] The system ZAP generated this result transmit sherice reference range [...] See_Comment H [Au tomated message] The system ZAP generated this result transmit sherice reference range : 166 - 358 10*3/?L. The reference range was not used to interpret this result as normal/abnormal . MPV (test code = 8.1 fL 9.5-12.9 L 04872-2) RDW-CV (test code = 16.1 % 12-15.5 H 788-0) RDW-SD (test code = 49.2 fL 39-49.9 66710-3) NRBC x10^3 (test code = See_Comment [Au tomated message] 2723257738) The system Funky Android[employer] h generated this result transmit sherice reference range : 10*3/?L. The reference range was not used to interpret this result as normal/abnormal . NRBC/100 WBC (test code See_Comment [Au tomated message] = 0982644558) The system [employer] ch generated this result transmit sherice reference range : 0.0 - 10.0 /100 WBC s. The reference r zoe was not used to interpret this result as normal/abnormal . IPF % (test code = 3341364582) Lab Interpretation (test Abnormal code = 04930-1) [facility] CampusTROPONIN [id number] 21:06:40 Test Item Value Reference Interpretation Comments Range TROPONIN I (test 0.005 ng/mL See_Comment [Automated code = 1109577881) message] The system which generated this result [...] biotin. Lab Interpretation Normal (test code = 62760-6) [facility] CampusCOM. METABOLIC PANEL (70470)2021-11-23 20:55:42 Test Item Value Reference Range Interpretation Comments NA (test code = 137 mmol/L 135-145 0599016404) K (test code = 4.3 mmol/L 3.5-5.0 7998780146) CL (test code = 104 mmol/L 98-108 9628542140) CO2 TOTAL (test code = 22 mmol/L 23-31 L 3073169067) AGAP (test code = 2-16 1428140662) BUN (test code = 15 mg/dL 7-23 2184379876) GLUCOSE (test code = 114 mg/dL 70-110 H 4951502293) CREATININE (test code = 0.68 mg/dL 0.50-1.04 2785002783) TOTAL BILI (test code = 0.5 mg/dL 0.1-1.0 6634693208) CALCIUM (test code = 9.1 mg/dL 8.6-10.6 2894578211) T PROTEIN (test code = 7.3 g/dL 6.3-8.2 4004301819) ALBUMIN (test code = 4.4 g/dL 3.5-5.0 9759910692) ALK PHOS (test code = 243 U/L 34-122 H 6408608812) ALTv (test code = 24 U/L 5-35 1742-6) AST(SGOT) (test code = 30 U/L 13-40 8028473695) eGFR (test code = mL/min/1.73m2 0791370392) LYNDSAY (test code = LYNDSAY) Association of [...] tests). Lab Interpretation Abnormal (test code = 08388-0) [facility] CampusLIPASE2022-05-07 20:55:22 Test Item Value Reference Range Interpretation Comments LIPASE (test code = 2975674746) 96 U/L 0-220 Lab Interpretation (test code = Normal 44262-9) [facility] CampusPOCT [id number] 20:46:00 Test Item Value Reference Range Interpretation Comments POCT PREG (test code = 1605) negative On board controls acceptable with present C Line (test code = 3574) POCT PREG LOT # (test code = 3575) [id number] POCT PREG TEST DATE (test 04/18/2023 code = 3576) Lab Interpretation (test code = Normal 62658-2) [facility] CampusCBC WITH [id number] 20:40:38 Test Item Value Reference Range Interpretation Comments WBC (test code = See_Comment [Automated 6090-2) message] The sy stem which generated this result transmitted reference range : 4.30 - 11.10 10*3/?L. The reference range was not used to interpret this result as normal/abnormal . RBC (test code = See_Comment [Automated 569-8) message] The sy stem which generated this [...] (test code = 53.7 fL 39.0-49.9 H 44967-8) RDW-CV (test code = 17.2 % 12.0-15.5 H 788-0) PLT (test code = See_Comment H [Automated 777-3) message] The sy stem which generated this result transmitted reference range : 166 - 358 10*3/ ?L. The reference r zoe was not used to interpret this result as normal/abnormal . MPV (test code = 8.5 fL 9.5-12.9 L 00375-7) NRBC/100 WBC (test See_Comment [Automat ed code = 1210472319) message] The system which generated this result transmitted reference range : 0.0 - 10.0 /100 WBCs. The refer ence range was not u sed to interpret th is result as normal/abnormal . NRBC x10^3 (test code <0.01 See_Comment [Auto mated = 3820669461) message] The s ystem which generated this result transmitted reference range : 10*3/?L. The reference range was not used to interpret this result as normal/abnormal . GRAN MAT (NEUT) % 53.7 % (test code = 770-8) IMM GRAN % (test code 0.90 % = 1051992876) LYMPH % (test code = 32.6 % 736-9) MONO % (test code = 10.1 % 5905-5) EOS % (test code = 1.5 % 713-8) BASO % (test code = 1.2 % 706-2) GRAN MAT x10^3(ANC) 4.98 10*3/uL 1.88-7.09 (test code = 1244537031) IMM GRAN x10^3 (test 0.08 10*3/uL 0.00-0.06 H code = 0100939636) LYMPH x10^3 (test code 3.02 10*3/uL 1.32-3.29 = 731-0) MONO x10^3 (test code 0.94 10*3/uL 0.33-0.92 H = 742-7) EOS x10^3 (test code = 0.14 10*3/uL 0.03-0.39 711-2) BASO x10^3 (test code 0.11 10*3/uL 0.01-0.07 H = 704-7) Lab Interpretation Abnormal (test code = 35275-2) [facility]2021-11-23 20:17:33 Test Item Value Reference Range Interpretation Comments POCT GLU (test code = 111 mg/dL 70-110 H Notifi ed Provider [id number]) Lab Interpretation (test Abnormal code = 62174-2) [facility], THINPREP, [id number] 00:00:00 Test Item Value Reference Range Interpretation Comments SOURCE: (test code = Endocervical 8001) SLIDES: (test code = 1 8011) LMP: (test code = 8021) 06/03/2021 SPECIMEN ADEQUACY: (test (NOTE) code = 32042) INTERPRETATION: (test ASCUS/EPITH. code = 99581) ABNORMALITY; SEE BELOW GREENHOUSE STAFF: (test Anusha code = 8101) CHANA Sepulveda(ASCP)[facility] PATHOLOGIST Nahid Russell, INTERPRETATION BY: (test M.D. code = 8122) LOCATION: (test code = (NOTE) 44949) CPT: (test code = 8140) (NOTE) PAP TEST, THINPREP, [id number] 00:00:00 Test Item Value Reference Range Interpretation Comments SOURCE: (test code = Endocervical 8001) SLIDES: (test code = 1 8011) LMP: (test code = 8021) 06/03/2021 SPECIMEN ADEQUACY: (test (NOTE) code = 25154) INTERPRETATION: (test ASCUS/EPITH. code = 99955) ABNORMALITY; SEE BELOW GREENHOUSE STAFF: (test Anusha code = 8101) CHANA Sepulveda(ASCP)[facility] PATHOLOGIST Nahid Russell, INTERPRETATION BY: (test M.D. code = 8122) LOCATION: (test code = (NOTE) 31768) CPT: (test code = 8140) (NOTE) PAP TEST, THINPREP, [id number] 00:00:00 Test Item Value Reference Range Interpretation Comments SOURCE: (test code = Endocervical 8001) SLIDES: (test code = 1 8011) LMP: (test code = 8021) 06/03/2021 SPECIMEN ADEQUACY: (test (NOTE) code = 74888) INTERPRETATION: (test ASCUS/EPITH. code = 93427) ABNORMALITY; SEE BELOW GREENHOUSE STAFF: (test Anusha code = 8101) CHANA Sepulveda(ASCP)[facility] PATHOLOGIST Nahid Russell, INTERPRETATION BY: (test M.D. code = 8122) LOCATION: (test code = (NOTE) 85613) CPT: (test code = 8140) (NOTE) PAP TEST, THINPREP, [id number] 00:00:00 Test Item Value Reference Range Interpretation Comments SOURCE: (test code = Endocervical 8001) SLIDES: (test code = 1 8011) LMP: (test code = 8021) 06/03/2021 SPECIMEN ADEQUACY: (test (NOTE) code = 03468) INTERPRETATION: (test ASCUS/EPITH. code = 35865) ABNORMALITY; SEE BELOW GREENHOUSE STAFF: (test Anusha code = 8101) CHANA Sepulveda(ASCP)[facility] PATHOLOGIST Nahid Russell, INTERPRETATION BY: (test M.D. code = 8122) LOCATION: (test code = (NOTE) 63699) CPT: (test code = 8140) (NOTE) HPV HIGH RISK WITH GENOTYPE, [id number] 00:00:00 Test Item Value Reference Range Interpretation Comments HPV HIGH RISK INTERP (test code = POSITIVE 02473) HPV 16 (test code = 26528) POSITIVE HPV 18 (test code = 64689) NEGATIVE HPV, HR, OTHER GENOTYPES (test code POSITIVE = 44004) HPV HIGH RISK WITH GENOTYPE, [id number] 00:00:00 Test Item Value Reference Range Interpretation Comments HPV HIGH RISK INTERP (test code = POSITIVE 28229) HPV 16 (test code = 66986) POSITIVE HPV 18 (test code = 33206) NEGATIVE HPV, HR, OTHER GENOTYPES (test code POSITIVE = 32478) HPV HIGH RISK WITH GENOTYPE, [id number] 00:00:00 Test Item Value Reference Range Interpretation Comments HPV HIGH RISK INTERP (test code = POSITIVE 39492) HPV 16 (test code = 48799) POSITIVE HPV 18 (test code = 04780) NEGATIVE HPV, HR, OTHER GENOTYPES (test code POSITIVE = 37270) HPV HIGH RISK WITH GENOTYPE, [id number] 00:00:00 Test Item Value Reference Range Interpretation Comments HPV HIGH RISK INTERP (test code = POSITIVE 47343) HPV 16 (test code = 79338) POSITIVE HPV 18 (test code = 83223) NEGATIVE HPV, HR, OTHER GENOTYPES (test code POSITIVE = 96964) [id number] 03:22:48 Test Item Value Reference Range Interpretation Comments APPEARANCE (test code = Hazy Clear A 5400211865) COLOR (test code = Yellow Yellow 0553690521) PH (test code = 4.8-8.0 5921268511) SP GRAVITY (test code = 1.003-1.030 0969916299) GLU U QUAL (test code = Normal Normal 2250708684) BLOOD (test code = Negative Negative Interfere nce from 8568100861) ascorbic acid m ay cause false neg ative results. KETONES (test code = 5 mg/dL Negative A 6857254032) PROTEIN (test code = Negative Negative 2887-8) UROBILIN (test code = 4.0 mg/dL Normal A 2321643005) BILIRUBIN (test code = Negative Negative 8299272507) NITRITE (test code = Negative Negative 7208559908) LEUK GRUPO (test code = Negative Negative 1404241153) RBC/HPF (test code = See_Comment [Autom ated message] 2686898090) The system ZAP generated this result transmitted ref erence range: 0 - 3 HP F. The reference range was not used to int erpret this result as normal/abnormal . WBC/HPF (test code = <1 See_Comment [Autom ated message] 4084931078) The system ZAP generated this result transmitted ref erence range: 0 - 5 HP F. The reference range was not used to int erpret this result as normal/abnormal . BACTERIA (test code = Few Negative A 0946107295) SQ EPITH (test code = HPF 2449437703) Lab Interpretation Abnormal (test code = 37285-3) [facility]IN[facility]IS2021-08-29 03:22:48 Test Item Value Reference Range Interpretation Comments APPEARANCE (test code = Hazy Clear A 4207599566) COLOR (test code = Yellow Yellow 6617736710) PH (test code = 4.8-8.0 3360104298) SP GRAVITY (test code = 1.003-1.030 8109429447) GLU U QUAL (test code = Normal Normal 9897736715) BLOOD (test code = Negative Negative 8561096433) KETONES (test code = 5 mg/dL Negative A 5652488749) PROTEIN (test code = Negative Negative 2887-8) UROBILIN (test code = 4.0 mg/dL Normal A 4499239486) BILIRUBIN (test code = Negative Negative 0874701463) NITRITE (test code = Negative Negative 4777155252) LEUK GRUPO (test code = Negative Negative 1391752904) RBC/HPF (test code = See_Comment [Autom ated message] 8347570945) The system ZAP generated this result transmit sherice reference range : 0 - 3 HPF. The refe rence range was not u sed to interpret th is result as normal/abnormal . WBC/HPF (test code = <1 See_Comment [Autom ated message] 5966506150) The system ZAP generated this result transmit sherice reference range : 0 - 5 HPF. The refe rence range was not u sed to interpret th is result as normal/abnormal . BACTERIA (test code = Few Negative A 4083919955) SQ EPITH (test code = HPF 2536972021) Lab Interpretation (test Abnormal code = 92385-5) [facility] [id number] 02:45:00 Test Item Value Reference Interpretation Comments Range TROPONIN I (test 0.002 ng/mL See_Comment [Automated code = 3440505532) message] The system which generated this result [...] biotin. Lab Interpretation Normal (test code = 98925-2) [facility] [id number] 02:45:00 Test Item Value Reference Range Interpretation Comments TROPONIN I (test code = 0.002 ng/mL See_Comment [Au tomated 4135984966) message] The sy stem which generated this result transmitted reference range : <=0.034. The reference range was not used to interpret this result as normal/abnormal . LYNDSAY (test code = LYNDSAY) Lab Interpretation Normal (test code = 03261-8) [facility] [id number] 02:41:57 Test Item Value Reference Range Interpretation Comments NT-proBNP (test code 169 pg/mL See_Comment H [Autom ated = 8891660866) message] The system which generated this result transmitted reference range : <=125. The reference range was not used to interpret this result as normal/abnormal . LYNDSAY (test code = LYNDSAY) Biotin has been reported to cause a negative bias, interpret results relative to patient's use of biotin. Lab Interpretation Abnormal (test code = 31431-2) [facility] [id number] 02:41:57 Test Item Value Reference Range Interpretation Comments NT-proBNP (test code = 169 pg/mL See_Comment H [Aut omated message] 9392012339) The system [employer] h generated this result transmit sherice reference range : <=125. The refe rence range was not u sed to interpret th is result as normal/abnormal . LYNDSAY (test code = LYNDSAY) Lab Interpretation (test Abnormal code = 91851-7) [facility]. METABOLIC PANEL (62814)2021-03-17 02:09:13 Test Item Value Reference Range Interpretation Comments NA (test code = 137 mmol/L 135-145 4036918822) K (test code = 4.2 mmol/L 3.5-5.0 1654474610) CL (test code = 102 mmol/L 98-108 8612193909) CO2 TOTAL (test code = 25 mmol/L 23-31 5262166693) AGAP (test code = 2-16 8757856080) BUN (test code = 18 mg/dL 7-23 6023526669) GLUCOSE (test code = 144 mg/dL 70-110 H 1583374256) CREATININE (test code = 0.77 mg/dL 0.50-1.04 0840823524) TOTAL BILI (test code = 0.4 mg/dL 0.1-1.9 6425311101) CALCIUM (test code = 8.9 mg/dL 8.6-10.6 7014867687) T PROTEIN (test code = 6.8 g/dL 6.3-8.2 5854403978) ALBUMIN (test code = 3.9 g/dL 3.5-5.0 9121243327) ALK PHOS (test code = 84 U/L 34-122 4982549182) ALTv (test code = 13 U/L 5-35 1742-6) AST(SGOT) (test code = 17 U/L 13-40 6917553212) eGFR (test code = mL/min/1.73m2 8638627102) LYNDSAY (test code = LYNDSAY) Association of [...] tests). Lab Interpretation Abnormal (test code = 15888-5) [facility]. METABOLIC PANEL (08555)2021-03-17 02:09:13 Test Item Value Reference Range Interpretation Comments NA (test code = 6943012135) 137 mmol/L 135-145 K (test code = 6852152908) 4.2 mmol/L 3.5-5.0 CL (test code = 4889375260) 102 mmol/L 98-108 CO2 TOTAL (test code = 3526523882) 25 mmol/L 23-31 AGAP (test code = 4430739790) 2-16 BUN (test code = 2156174456) 18 mg/dL 7-23 GLUCOSE (test code = 4464820134) 144 mg/dL 70-110 H CREATININE (test code = 0.77 mg/dL 0.50-1.04 1479546754) TOTAL BILI (test code = 0.4 mg/dL 0.1-1.5 6765800648) CALCIUM (test code = 5101157243) 8.9 mg/dL 8.6-10.6 T PROTEIN (test code = 7636740946) 6.8 g/dL 6.3-8.2 ALBUMIN (test code = 6808725531) 3.9 g/dL 3.5-5.0 ALK PHOS (test code = 6615993728) 84 U/L 34-122 ALTv (test code = 1742-6) 13 U/L 5-35 AST(SGOT) (test code = 4982088145) 17 U/L 13-40 eGFR (test code = 1339001492) mL/min/1.73m2 LYNDSAY (test code = LYNDSAY) Lab Interpretation (test code = Abnormal 51674-0) [facility] WITH [id number] 01:56:33 Test Item Value Reference Range Interpretation Comments WBC (test code = See_Comment H [Automated 2930-2) message] The sy stem which generated this result transmitted reference range : 4.30 - 11.10 10*3/?L. The reference range was not used to interpret this result as normal/abnormal . RBC (test code = See_Comment [Automated 589-8) message] The sy stem which generated this [...] (test code = 55.5 fL 39.0-49.9 H 76405-8) RDW-CV (test code = 18.9 % 12.0-15.5 H 788-0) PLT (test code = See_Comment H [Automated 777-3) message] The sy stem which generated this result transmitted reference range : 166 - 358 10*3/ ?L. The reference r zoe was not used to interpret this result as normal/abnormal . MPV (test code = 8.2 fL 9.5-12.9 L 47242-7) NRBC/100 WBC (test See_Comment [Automat ed code = 2108335041) message] The system which generated this result transmitted reference range : 0.0 - 10.0 /100 WBCs. The refer ence range was not u sed to interpret th is result as normal/abnormal . NRBC x10^3 (test code <0.01 See_Comment [Auto mated = 8935609562) message] The s ystem which generated this result transmitted reference range : 10*3/?L. The reference range was not used to interpret this result as normal/abnormal . GRAN MAT (NEUT) % 61.7 % (test code = 770-8) IMM GRAN % (test code 0.80 % = 2623707494) LYMPH % (test code = 28.5 % 736-9) MONO % (test code = 6.3 % 5905-5) EOS % (test code = 1.8 % 713-8) BASO % (test code = 0.9 % 706-2) GRAN MAT x10^3(ANC) 7.31 10*3/uL 1.88-7.09 H (test code = 3865848886) IMM GRAN x10^3 (test 0.09 10*3/uL 0.00-0.06 H code = 9138031050) LYMPH x10^3 (test code 3.38 10*3/uL 1.32-3.29 H = 731-0) MONO x10^3 (test code 0.75 10*3/uL 0.33-0.92 = 742-7) EOS x10^3 (test code = 0.21 10*3/uL 0.03-0.39 711-2) BASO x10^3 (test code 0.11 10*3/uL 0.01-0.07 H = 704-7) Lab Interpretation Abnormal (test code = 15222-8) [facility] WITH [id number] 01:56:33 Test Item Value Reference Range Interpretation [...] (test code = 55.5 fL 39.0-49.9 H 43472-4) RDW-CV (test code = 18.9 % 12.0-15.5 H 788-0) PLT (test code = See_Comment H [Automated 777-3) message] The sy stem which generated this result transmitted reference range : 166 - 358 10*3/ ?L. The reference r zoe was not used to interpret this result as normal/abnormal . MPV (test code = 8.2 fL 9.5-12.9 L 71797-9) NRBC/100 WBC (test See_Comment [Automat ed code = 9032536760) message] The system which generated this result transmitted reference range : 0.0 - 10.0 /100 WBCs. The refer ence range was not u sed to interpret th is result as normal/abnormal . NRBC x10^3 (test code <0.01 See_Comment [Auto mated = 1074589070) message] The s ystem which generated this result transmitted reference range : 10*3/?L. The reference range was not used to interpret this result as normal/abnormal . GRAN MAT (NEUT) % 61.7 % (test code = 770-8) IMM GRAN % (test code 0.80 % = 2910286655) LYMPH % (test code = 28.5 % 736-9) MONO % (test code = 6.3 % 5905-5) EOS % (test code = 1.8 % 713-8) BASO % (test code = 0.9 % 706-2) GRAN MAT x10^3(ANC) 7.31 10*3/uL 1.88-7.09 H (test code = 7206466302) IMM GRAN x10^3 (test 0.09 10*3/uL 0.00-0.06 H code = 8737139311) LYMPH x10^3 (test code 3.38 10*3/uL 1.32-3.29 H = 731-0) MONO x10^3 (test code 0.75 10*3/uL 0.33-0.92 = 742-7) EOS x10^3 (test code = 0.21 10*3/uL 0.03-0.39 711-2) BASO x10^3 (test code 0.11 10*3/uL 0.01-0.07 H = 704-7) Lab Interpretation Abnormal (test code = 94150-3) [facility] (ID NOW RAPID TESTING)2021-03-17 01:38:12 Test Item Value Reference Range Interpretation Comments SARS-CoV-2 Rapid ID NOW Not Detected Not Detected (test code = 28946-0) LYNDSAY (test code = LYNDSAY) ID NOW COVID-19 Assay is an isothermal nucleic acid amplification test intended for the qualitative detection of nucleic acid from SARS-CoV-2 viral RNA in nasopharyngeal (ENVIRONMENTAL AID) specimens. It is used under Emergency Use Authorization (EUA) by [facility]. The limit of detection (LOD) of the [...] indicated. Lab Interpretation Normal (test code = 62430-5) [facility]-19 (ID NOW RAPID TESTING)2021-03-17 01:38:12 Test Item Value Reference Range Interpretation Comments SARS-CoV-2 Rapid ID NOW (test Not Detected Not Detected code = 48332-0) LYNDSAY (test code = LYNDSAY) Lab Interpretation (test code = Normal 13486-4) [facility]-19 (ID NOW RAPID TESTING)2021-02-19 17:42:45 Test Item Value Reference Range Interpretation Comments SARS-CoV-2 Rapid ID NOW Not Detected Not Detected (test code = 99523-8) LYNDSAY (test code = LYNDSAY) ID NOW COVID-19 Assay is an isothermal nucleic acid amplification test intended for the qualitative detection of nucleic acid from SARS-CoV-2 viral RNA in nasopharyngeal (ENVIRONMENTAL AID) specimens. It is used under Emergency Use [...] indicated. Lab Interpretation Normal (test code = 82145-2) [facility]CT ABDOMEN PELVIS W [id number] 17:24:55Thickening of the gastric antrum and duodenal bulb could be fromunderdistention, the differential would include sequela of peptic ulcerdisease. No findings of ulcer perforation. Otherwise, no acute intra- abdominal or pelvic abnormality. Stable thickening and nodularity of the left adrenal gland. RL: 8722 Patient name: EUSEBIA ONTIVEROSB: 1970 51 years EXAMINATION: CT ABDOMEN PELVIS W CONTRAST Ordering Physician: ANALI MONROY CLINICAL HISTORY:Abdominal pain, acute, nonlocalized COMPARISON:11/21/2015 TECHNIQUE:Helical [...] CT ABDOMEN PELVIS W CONTRASTOrdering Physician: ANALI MONROY CLINICAL HISTORY:Abdominal pain, acute, nonlocalized COMPARISON:11/21/2015TECHNIQUE:Helical CT [...] of the left adrenal gland.RL: 8722 [facility] CampusUrinalysis2021-08-03 17:03:40 Test Item Value Reference Range Interpretation Comments APPEARANCE (test code = Hazy Clear A 8593222828) COLOR (test code = Mabel Yellow A 2595536291) PH (test code = 4.8-8.0 9478708988) SP GRAVITY (test code = 1.003-1.030 H 6120126210) GLU U QUAL (test code = Normal Normal 5310310284) BLOOD (test code = Negative Negative 1357825438) KETONES (test code = 5 mg/dL Negative A 2055125974) PROTEIN (test code = 30 mg/dL Negative A 2887-8) UROBILIN (test code = 4.0 mg/dL Normal A 5786308454) BILIRUBIN (test code = 4 mg/dL Negative A 6085020550) NITRITE (test code = Negative Negative 3407386439) LEUK GRUPO (test code = Negative Negative 1665369450) RBC/HPF (test code = See_Comment H [Autom ated message] 5628681079) The system ZAP generated this result transmit sherice reference range : 0 - 3 HPF. The refe rence range was not u sed to interpret th is result as normal/abnormal . WBC/HPF (test code = See_Comment H [Autom ated message] 1611253268) The system ZAP generated this result transmit sherice reference range : 0 - 5 HPF. The refe rence range was not u sed to interpret th is result as normal/abnormal . BACTERIA (test code = Few Negative A 3383559022) MUCOUS (test code = Moderate Negative LPF A 5868337109) SQ EPITH (test code = HPF 3265061064) CA OXALATE (test code = See_Comment H [Au tomated message] 1530984368) The system ZAP generated this result transmit sherice reference range : <=1 HPF. The refere nce range was not u sed to interpret th is result as normal/abnormal . Ictotest (test code = Negative 2342570249) Lab Interpretation (test Abnormal code = 07659-8) [facility] CampusComplete Metabolic [id number] 16:34:55 Test Item Value Reference Range Interpretation Comments NA (test code = 139 mmol/L 135-145 8082916907) K (test code = 4.3 mmol/L 3.5-5.0 6551346108) CL (test code = 105 mmol/L 98-108 4256697801) CO2 TOTAL (test code 26 mmol/L 23-31 = 9777636570) AGAP (test code = 2-16 0306627640) BUN (test code = 11 mg/dL 7-23 7585588458) GLUCOSE (test code = 95 mg/dL 70-110 6462033006) CREATININE (test code 0.70 mg/dL 0.50-1.04 = 1772562021) TOTAL BILI (test code 0.6 mg/dL 0.1-1.1 = 7961286188) CALCIUM (test code = 8.9 mg/dL 8.6-10.6 7759479052) T PROTEIN (test code 7.7 g/dL 6.3-8.2 = 5055761596) ALBUMIN (test code = 4.1 g/dL 3.5-5.0 6688705464) ALK PHOS (test code = 79 U/L 34-122 1778849720) ALTv (test code = 10 U/L 5-35 1742-6) AST(SGOT) (test code 22 U/L 13-40 = 5815315223) eGFR (test code = mL/min/1.73m2 6396096625) LYNDSAY (test code = LYNDSAY) Association of [...] urine or abnormalities in imaging tests). [facility] CampusLipase, [id number] 16:34:14 Test Item Value Reference Range Interpretation Comments LIPASE (test code = 8794994398) 45 U/L 0-220 Lab Interpretation (test code = Normal 54079-8) [facility] CampusCB with [id number] 16:21:12 Test Item Value Reference Range Interpretation [...] (test code = 54.4 fL 39.0-49.9 H 27289-5) RDW-CV (test code = 18.3 % 12.0-15.5 H 788-0) PLT (test code = See_Comment H [Automated 777-3) message] The sy stem which generated this result transmitted reference range : 166 - 358 10*3/ ?L. The reference r zoe was not used to interpret this result as normal/abnormal . MPV (test code = 8.5 fL 9.5-12.9 L 76348-1) NRBC/100 WBC (test See_Comment [Automat ed code = 8896770678) message] The system which generated this result transmitted reference range : 0.0 - 10.0 /100 WBCs. The refer ence range was not u sed to interpret th is result as normal/abnormal . NRBC x10^3 (test code <0.01 See_Comment [Auto mated = 0661106963) message] The s ystem which generated this result transmitted reference range : 10*3/?L. The reference range was not used to interpret this result as normal/abnormal . GRAN MAT (NEUT) % 78.3 % (test code = 770-8) IMM GRAN % (test code 0.40 % = 0549758571) LYMPH % (test code = 15.4 % 736-9) MONO % (test code = 4.8 % 5905-5) EOS % (test code = 0.1 % 713-8) BASO % (test code = 1.0 % 706-2) GRAN MAT x10^3(ANC) 7.15 10*3/uL 1.88-7.09 H (test code = 5467383901) IMM GRAN x10^3 (test 0.04 10*3/uL 0.00-0.06 code = 2683560076) LYMPH x10^3 (test code 1.41 10*3/uL 1.32-3.29 = 731-0) MONO x10^3 (test code 0.44 10*3/uL 0.33-0.92 = 742-7) EOS x10^3 (test code = <0.03 0.03-0.39 L 711-2) BASO x10^3 (test code 0.09 10*3/uL 0.01-0.07 H = 704-7) Lab Interpretation Abnormal (test code = 18740-2) [facility]
[2023-05-03 10:20] LABS: Absolute Lymphocytes (CBC) 2.9 K/uL (0.7-4.9); Hematocrit 37.8 % (36.0-45.0); Lymphocytes % 20.5 % (15.3-44.8); MCV 87.4 fL (80-100); MPV 6.5 fL (7.6-11.3); Platelets 396 thou/uL (152-406); RBC Red Blood Cell Count 4.33 M/uL (3.86-4.86)
[2023-05-03 10:25] LABS: Protime INR 0.92
[2023-05-03] MEDS ORDERED: CEFTRIAXONE 1000 MG/VIAL ONE (10:28)
[2023-05-03] MEDS ORDERED: predniSONE 20 MG TAB ONE (10:28)
[2023-05-03] MEDS ORDERED: ALBUTEROL 2.5 MG/3 ML NEB SOL ONE (10:28)
[2023-05-03] MEDS ORDERED: NA CHLORIDE 0.9% 50 ML ONE (10:29)
[2023-05-03] MEDS ORDERED: NA CHLORIDE 0.9% 250 ML ONE (10:29)
[2023-05-03] MEDS ORDERED: NA CHLORIDE 0.9% 1,000 ML ONE (10:29)
[2023-05-03] MEDS ORDERED: AZITHROMYCIN 500 MG INJ IVPB ONE (10:29)
[2023-05-03] MEDS ORDERED: IPRATROPIUM BROM 0.5MG/2.5ML ONE (10:29)
[2023-05-03 10:37] LABS: Albumin 3.5 g/dL (3.4-5.0); Bilirubin Total 0.2 mg/dL (0.2-1.0); Potassium 3.5 mEq/L (3.5-5.1); Protein, Total 6.9 g/dL (6.4-8.2)
--- NOTE | 2023-05-03 11:04 | RAD REPORT ---
EXAM DESCRIPTION: RAD - Chest Single View - 05/03/2023 10:55 am CLINICAL HISTORY: COPD Chest pain. COMPARISON: Chest Single View dated 03/29/2023; Chest Single View dated 11/13/2022; Chest Single View dated 11/07/2022; Chest Single View dated 08/29/2022 FINDINGS: Portable technique limits examination quality. Moderate pulmonary edema is noted. The heart is mildly enlarged in size. No displaced fractures.Cervi kwame hardware plate. IMPRESSION: Mild to moderate CHF suspected.
--- NOTE | 2023-05-03 11:53 | ER ---
Nurse's Notes [facility] Name: Heather Coon Age: 53 yrs Sex: Female : 1970 Arrival Date: 05/03/2023 Time: 09:19 Bed 3 Private MD: Diagnosis: Influenza Presentation: 05/03 09:36 Chief complaint: SOB and substernal chest pain since 0400 today. Coronavirus screen: At this time, the client does not indicate any symptoms associated with coronavirus-19. Ebola Screen: No symptoms or risks identified at this time. Initial Sepsis Screen: Does the patient meet any 2 criteria? No. Patient's initial sepsis screen is negative. Does the patient have a suspected source of infection? No. Patient's initial sepsis screen is negative. Risk Assessment: Do you want to hurt yourself or someone else? Patient reports no desire to harm self or others. Onset of symptoms was May 03, 2023. 09:36 Method Of Arrival: Wheelchair hb 09:36 Acuity: ANDER 2 hb Triage Assessment: 10:00 General: Appears distressed, uncomfortable, Behavior is anxious. db 16:38 Respiratory: Reports shortness of breath on exertion Onset: The symptoms/episode db began/occurred this morning, the patient has severe shortness of breath. Historical: - Allergies: 09:38 fluoxetine; hb 09:38 Green Tea; hb 09:38 Keppra; not an allergy; hb - PMHx: 09:38 Anxiety; Arthritis; Bipolar disorder; Cancer-Cervical; Chronic obstructive lung hb disease; Chronic pain; Congestive heart failure; Depression; Diverticulitis; Herniated Back Disc; Hypertension; intestinal mass; Myocardial infarction; pt reports hx of seizures; Spastic Muscles; stroke; - PSHx: 09:38 cervical fusion; Cholecystectomy; foot; Tonsillectomy; hb - Immunization history:: Adult Immunizations up to date. - Social history:: Smoking status: Patient denies any tobacco usage or history of. Screenin:15 [facility] ED Fall Risk Assessment (Adult) History of falling in the last 3 months, db including since admission Yes- fall prone (multiple falls) (3 pts) Confusion or Disorientation No (0 pts) Intoxicated or Sedated No (0 pts) Impaired Gait Yes (1 pt) Mobility Assist Device Used Yes (1 pt) Altered Elimination No (0 pt) Score/Fall Risk Level 3 or more points = High Risk Oriented to surroundings, Maintained a safe environment. Abuse screen: Denies threats or abuse. Denies injuries from another. Nutritional screening: No deficits noted. Tuberculosis screening: No symptoms or risk factors identified. Assessment: 10:15 Reassessment: Patient appears in no apparent distress at this time. Patient and/or db family updated on plan of care and expected duration. Pain level reassessed. Patient is alert, oriented x 3, equal unlabored respirations, skin warm/dry/pink. General: Appears distressed, uncomfortable, Behavior is cooperative, anxious. Pain: Complains of pain in chest. Neuro: Level of Consciousness is awake, alert, obeys commands, Oriented to person, place, time, situation. Cardiovascular: Reports chest pain, shortness of breath, Rhythm is regular. Respiratory: Airway is patent Respiratory effort is even, labored, Respiratory pattern is regular, symmetrical, Breath sounds are coarse bilaterally. GI: Abdomen is distended. 10:43 Reassessment: ALEXSANDER RODRIGUEZ PT MOM [phone]. db 11:38 Reassessment: Patient appears in no apparent distress at this time. Patient and/or db family updated on plan of care and expected duration. Pain level reassessed. Patient is alert, oriented x 3, equal unlabored respirations, skin warm/dry/pink. Patient states feeling better. 11:52 Reassessment: Patient appears in no apparent distress at this time. Patient and/or db family updated on plan of care and expected duration. Pain level reassessed. Patient is alert, oriented x 3, equal unlabored respirations, skin warm/dry/pink. PT PLACED ON NC 2 L DUE TO PT O2 SAT 92% RA. 13:53 Reassessment: Patient appears in no apparent distress at this time. Patient and/or db family updated on plan of care and expected duration. Pain level reassessed. Patient is alert, oriented x 3, equal unlabored respirations, skin warm/dry/pink. RESTING. 15:15 Reassessment: PT IS UNCOMFORTABLE AND IS REQUESTING NEW BED OR TO LEAVE BECAUSE OF PAIN db IN BED. NOTIFIED [facility] CHARGE. PT PROVIDED HOSPITAL BED. PT STATES THIS HELPS RELIEVE PAIN AND DISCOMFORT. 15:37 Reassessment: CALLED UNIT AND ATTEMPTED TO GIVE REPORT WITH NO ANSWER. db 15:50 Reassessment: CALLED UNIT TO GIVE REPORT. NO ANSWER. NOTIFIED [facility] ED CHARGE. db 16:05 Reassessment: REPORT GIVEN TO BETH NIXON. db Vital Signs: 09:30 BP 165 / 116; Pulse 115; Resp 16; Pulse Ox 98% on R/A; db 09:36 BP 168 / 129; Pulse 114; Resp 23; Temp 98.2(TE); Pulse Ox 97% on R/A; Weight 90.72 kg; hb Height 5 ft. 0 in. ; Pain 9/10; 10:30 BP 150 / 106; Pulse 107; Resp 16; Pulse Ox 98% on Nebulizer Mask; db 11:00 BP 150 / 99; Pulse 114; Resp 20; Pulse Ox 92% on R/A; db 11:30 BP 132 / 94; Pulse 113; Resp 28; Pulse Ox 92% ; db 11:54 Pulse Ox 99% on 2 lpm NC; db 12:00 BP 125 / 82; Pulse 112; Resp 26; Pulse Ox 96% on 2 lpm NC; db 12:30 BP 145 / 101; Pulse 111; Resp 27; Pulse Ox 94% ; db 13:00 BP 131 / 86; Pulse 109; Resp 23; Pulse Ox 95% on 2 lpm NC; db 13:30 BP 150 / 103; Pulse 110; Resp 23; Pulse Ox 95% on 2 lpm NC; db 09:36 Body Mass Index 39.06 (90.72 kg, 152.4 cm) hb 09:36 Pain Scale: Adult hb ED Course: 09:20 Patient arrived in ED. im 09:24 Andrea Pizano MD is Attending Physician. ec2 09:38 Triage completed. hb 09:40 Arm band placed on. hb 09:50 First set of blood cultures drawn by me. db 10:08 Second set of blood cultures drawn by me. db 10:29 Arlette Lyles, BETH is Primary Nurse. db 10:56 CXR XRAY In Process Unspecified. EDMS 11:40 No provider procedures requiring assistance completed. Inserted saline lock: 22 gauge db in left wrist, using aseptic technique. Blood collected. 11:41 Patient has correct armband on for positive identification. Bed in low position. Call db light in reach. Side rails up X2. Placed in gown. Client placed on continuous cardiac and pulse oximetry monitoring. NIBP monitoring applied. Warm blanket given. 11:52 Andrea Pizano MD is Hospitalizing Provider. ec2 11:52 Randy Parham MD is Hospitalizing Provider. ec2 11:54 Oxygen administration via nasal cannula \T\ 2L/min Response to oxygen therapy: symptoms db improved. 14:12 Notified ED physician of a critical lab result(s). TROP 149.3. hb 16:10 Provided Education on: ADMISSION. db 16:10 Patient admitted, IV remains in place. db Administered Medications: 10:15 Drug: DuoNeb Nebulize (3:1) (2.5 mg - 0.5 mg) 3 ml Nebulizer once Route: Nebulizer; db 11:41 Follow up: Response: No adverse reaction; Wheezing diminished db 10:20 Drug: NS 0.9% IV 1000 ml IV at 1 bolus Per protocol; 1000 mL bolus Route: IV; Rate: 1 db bolus; Site: left wrist; 12:00 Follow up: IV Status: Completed infusion; IV Intake: 1000ml db 10:25 Drug: predniSONE PO 40 mg PO once Route: PO; db 16:39 Follow up: Response: No adverse reaction db 10:30 Drug: Rocephin IV 1 grams IV at calculated rate once; Given slow IV push per pharmacy db instructions Route: IV; Rate: calculated rate; Site: left wrist; 10:40 Follow up: Response: No adverse reaction; IV Status: Completed infusion; IV Intake: 50mldb 10:40 Drug: AZITHromycin IVPB 500 mg IVPB once over 1 hrs; (mix in 250 mL NS) Route: IVPB; db Infused Over: 1 hrs; Site: left wrist; 14:00 Follow up: Response: No adverse reaction; IV Status: Completed infusion; IV Intake: db 250ml 11:45 Drug: Oseltamivir PO 75 mg PO once Route: PO; db 13:00 Follow up: Response: No adverse reaction db 11:45 Drug: Ondansetron IVP 4 mg IVP once; over 2 minutes Route: IVP; Site: left wrist; db 12:00 Follow up: Response: No adverse reaction db Medication: 10:15 VIS not applicable for this client. db Intake: 10:40 IV: 50ml; Total: 50ml. db 12:00 IV: 1000ml; Total: 1050ml. db 14:00 IV: 250ml; Total: 1300ml. db Outcome: 11:52 Decision to Hospitalize by Provider. ec2 16:10 Admitted to ER Hold. Please see [facility] for further documentation. db 16:10 Condition: stable 16:10 Instructed on the need for admit, 16:40 Patient left the ED. db Signatures: Dispatcher [employer] Sabrina Gan RN RN Arlette Lyles RN RN db Estelle Sun Edwin, MD MD ec2 Corrections: (The following items were deleted from the chart) 11:55 10:30 BP 150 / 106; Pulse 107bpm; Resp 16bpm; Pulse Ox 98% RA; db db
--- NOTE | 2023-05-03 11:53 | EDPHYS ---
Physician Documentation [facility] Name: Heather Coon Age: 53 yrs Sex: Female : 1970 Arrival Date: 05/03/2023 Time: 09:19 Bed 3 Private MD: ED Physician Andrea Pizano HPI: 05/03 09:44 This 53 yrs old Female presents to ER via Wheelchair with complaints of ec2 Shortness Of Breath. 09:44 Patient arrives today due to concern for progressive shortness of breath. Patient with ec2 history of COPD, 1 pack/day smoker. Patient reports that she been having productive cough, no fevers or chills, no nausea or vomiting. Patient reports no abdominal pain, nausea with p.o. intake. Patient reports no leg swelling. Patient denies any chest pain.. Historical: - Allergies: 09:38 fluoxetine; hb 09:38 Green Tea; hb 09:38 Keppra; not an allergy; hb - PMHx: 09:38 Anxiety; Arthritis; Bipolar disorder; Cancer-Cervical; Chronic obstructive lung hb disease; Chronic pain; Congestive heart failure; Depression; Diverticulitis; Herniated Back Disc; Hypertension; intestinal mass; Myocardial infarction; pt reports hx of seizures; Spastic Muscles; stroke; - PSHx: 09:38 cervical fusion; Cholecystectomy; foot; Tonsillectomy; hb - Immunization history:: Adult Immunizations up to date. - Social history:: Smoking status: Patient denies any tobacco usage or history of. ROS: 09:44 Constitutional: sob ec2 Exam: 09:44 Constitutional: PHYSICAL EXAMINATION: GENERAL: No acute distress HEENT: Extraocular ec2 motions intact CV: Tachycardia LUNGS: Tachypnea, diffuse scattered wheezes, no rales, no rhonchi ABDOMEN: Nondistended SKIN: No rash NEUROLOGIC: Moves all extremities equally Vital Signs: 09:30 BP 165 / 116; Pulse 115; Resp 16; Pulse Ox 98% on R/A; db 09:36 BP 168 / 129; Pulse 114; Resp 23; Temp 98.2(TE); Pulse Ox 97% on R/A; Weight 90.72 kg; hb Height 5 ft. 0 in. ; Pain 9/10; 10:30 BP 150 / 106; Pulse 107; Resp 16; Pulse Ox 98% on Nebulizer Mask; db 11:00 BP 150 / 99; Pulse 114; Resp 20; Pulse Ox 92% on R/A; db 11:30 BP 132 / 94; Pulse 113; Resp 28; Pulse Ox 92% ; db 11:54 Pulse Ox 99% on 2 lpm NC; db 12:00 BP 125 / 82; Pulse 112; Resp 26; Pulse Ox 96% on 2 lpm NC; db 12:30 BP 145 / 101; Pulse 111; Resp 27; Pulse Ox 94% ; db 13:00 BP 131 / 86; Pulse 109; Resp 23; Pulse Ox 95% on 2 lpm NC; db 13:30 BP 150 / 103; Pulse 110; Resp 23; Pulse Ox 95% on 2 lpm NC; db 09:36 Body Mass Index 39.06 (90.72 kg, 152.4 cm) hb 09:36 Pain Scale: Adult hb MDM: 09:30 Patient medically screened. ec2 09:44 Data reviewed: vital signs. ED course: Patient arrives today due to concern for ec2 progressive shortness of breath in the setting of history of COPD. Examination of her particular conventional with tachycardia noted. We will obtain a septic work-up and treat for underlying COPD exacerbation with pulmonary coverage with ceftriaxone and azithromycin. Currently considering symptoms secondary to pneumonia, COPD exacerbation, viral infection. EKG independently reviewed and interpreted me, shows sinus tachycardia, rate of 107, no acute segment elevations, PVC noted.. 11:32 ED course: Patient's lab work is remarkable for CBC with leukocytosis of 14.3, ec2 metabolic profile with slight hypokalemia 3.5, reassuring GFR. Patient is noted to be flu be positive. Patient lactic acid is within normal ranges.. Given the patient's multiple comorbidities, I will give the patient Tamiflu. Chest x-ray independently reviewed and interpreted by me, shows no focal consolidation, vascular congestion identified.. 11:46 ED course: Discussed case with hospitalist, pending admission.. ec2 05/03 09:43 Order name: Blood Culture Adult (2) ec2 05/03 09:43 Order name: CBC with Diff ec2 05/03 09:43 Order name: CMP; Complete Time: 11:21 ec2 05/03 09:43 Order name: Lactate w/ 2H reflex if indic.; Complete Time: 11:21 ec2 05/03 09:43 Order name: Protime (+inr); Complete Time: 11:21 ec2 05/03 09:43 Order name: Ptt, Activated; Complete Time: 11:21 ec2 05/03 09:46 Order name: COVID-19/FLU A+B ec2 05/03 10:40 Order name: COVID-19 SARS RT PCR; Complete Time: 11:31 ec2 05/03 10:40 Order name: Influenza Screen (a \T\ B); Complete Time: 11:21 ec2 05/03 12:50 Order name: Urinalysis w/ reflexes EDMS 05/03 12:50 Order name: Basic Metabolic Panel EDMS 05/03 12:50 Order name: Basic Metabolic Panel EDMS 05/03 12:50 Order name: Basic Metabolic Panel EDMS 05/03 12:50 Order name: CBC with Automated Diff EDMS 05/03 12:50 Order name: CBC with Automated Diff EDMS 05/03 12:50 Order name: CBC with Automated Diff EDMS 05/03 12:50 Order name: CBC with Automated Diff EDMS 05/03 12:50 Order name: Comprehensive Metabolic Panel EDMS 05/03 12:50 Order name: Comprehensive Metabolic Panel EDMS 05/03 12:50 Order name: Comprehensive Metabolic Panel EDMS 05/03 12:50 Order name: Comprehensive Metabolic Panel EDMS 05/03 12:50 Order name: Lipid Profile EDMS 05/03 12:50 Order name: Lipid Profile EDMS 05/03 12:50 Order name: Magnesium EDMS 05/03 12:50 Order name: Magnesium EDMS 05/03 12:50 Order name: Magnesium EDMS 05/03 12:50 Order name: Magnesium EDMS 05/03 12:50 Order name: Phosphorus EDMS 05/03 12:50 Order name: Phosphorus EDMS 05/03 12:50 Order name: Phosphorus EDMS 05/03 12:50 Order name: Phosphorus EDMS 05/03 12:53 Order name: Basic Metabolic Panel EDMS 05/03 12:53 Order name: Basic Metabolic Panel EDMS 05/03 12:53 Order name: CBC with Automated Diff EDMS 05/03 12:53 Order name: CBC with Automated Diff EDMS 05/03 12:53 Order name: NT PRO-BNP EDMS 05/03 12:53 Order name: NT PRO-BNP EDMS 05/03 12:53 Order name: Troponin High Sensitivity EDMS 05/03 15:06 Order name: SARS-COV-2 RT PCR EDMS 05/03 10:06 Order name: CXR XRAY; Complete Time: 11:21 ec2 05/03 09:43 Order name: EKG; Complete Time: 09:44 ec2 05/03 09:43 Order name: Accucheck; Complete Time: 10:55 ec2 05/03 09:43 Order name: Cardiac monitoring; Complete Time: 10:55 ec2 05/03 09:43 Order name: EKG - Nurse/Tech; Complete Time: 10:55 ec2 05/03 09:43 Order name: IV Saline Lock - Large Bore; Complete Time: 10:55 ec2 05/03 09:43 Order name: Labs collected and sent; Complete Time: 10:55 ec2 05/03 09:43 Order name: O2 Per Protocol; Complete Time: 10:55 ec2 05/03 09:43 Order name: O2 Sat Monitoring; Complete Time: 10:55 ec2 05/03 09:43 Order name: Vital Signs; Complete Time: 11:41 ec2 Administered Medications: 10:15 Drug: DuoNeb Nebulize (3:1) (2.5 mg - 0.5 mg) 3 ml Nebulizer once Route: Nebulizer; db 11:41 Follow up: Response: No adverse reaction; Wheezing diminished db 10:20 Drug: NS 0.9% IV 1000 ml IV at 1 bolus Per protocol; 1000 mL bolus Route: IV; Rate: 1 db bolus; Site: left wrist; 12:00 Follow up: IV Status: Completed infusion; IV Intake: 1000ml db 10:25 Drug: predniSONE PO 40 mg PO once Route: PO; db 16:39 Follow up: Response: No adverse reaction db 10:30 Drug: Rocephin IV 1 grams IV at calculated rate once; Given slow IV push per pharmacy db instructions Route: IV; Rate: calculated rate; Site: left wrist; 10:40 Follow up: Response: No adverse reaction; IV Status: Completed infusion; IV Intake: 50mldb 10:40 Drug: AZITHromycin IVPB 500 mg IVPB once over 1 hrs; (mix in 250 mL NS) Route: IVPB; db Infused Over: 1 hrs; Site: left wrist; 14:00 Follow up: Response: No adverse reaction; IV Status: Completed infusion; IV Intake: db 250ml 11:45 Drug: Oseltamivir PO 75 mg PO once Route: PO; db 13:00 Follow up: Response: No adverse reaction db 11:45 Drug: Ondansetron IVP 4 mg IVP once; over 2 minutes Route: IVP; Site: left wrist; db 12:00 Follow up: Response: No adverse reaction db Disposition Summary: 05/03/23 11:52 Hospitalization Ordered Notes: Hospitalization Status: Inpatient Admission ec2 Provider: Randy Parham ec2 Location: Telemetry/[facility]Sur (Inpatient) ec2 Condition: Stable ec2 Problem: new ec2 Symptoms: have improved ec2 Bed/Room Type: Standard ec2 Room Assignment: 223(05/03/23 15:21) eb Diagnosis - Influenza ec2 Forms: - Medication Reconciliation Form ec2 - SBAR form ec2 - Leadership Thank You Letter ec2 Signatures: Dispatcher [employer] Sabrina Gan RN RN Radha Medellin Danielle, RN RN db Corral, Edwin, MD MD ec2 Corrections: (The following items were deleted from the chart) 15:21 11:52 ec2 eb
[2023-05-03] MEDS ORDERED: OSELTAMIVIR 75 MG CAP PO ONE (11:57)
[2023-05-03] MEDS ORDERED: ONDANSETRON 4 MG/2 ML VIAL ONE (11:57)
--- NOTE | 2023-05-03 12:28 | P.HP ---
Certification for Inpatient With expected LOS: <2 Midnights Patient will require the following post-hospital care: None Practitioner: I am a practitioner with admitting privileges, knowledge of patient current condition, hospital course, and medical plan of care. Services: Services provided to patient in accordance with Admission requirements found in Title 42 Section 412.3 of the Code of Federal Regulations Patient History Date of Service: 05/03/23 Primary Care Provider: Randy Jacobson Reason for admission: COPD Exacerbation, CHF, Flu B History of Present Illness: Ms. Shaggy Romero 53-year-old female with a history of COPD, smoker, depression, seizures, arthritis, anxiety, bipolar disorder CHF, depression, diverticulitis, herniated disc of the back, hypertension, intestinal mask, history of myocardial infection. Patient presented to the emergency room with increased shortness of breath early this morning.Extreme shortness of breath, rescue inhalor is not helping. Patient reports that she has been having productive cough, no fever or chills, no nausea or vomiting. patient denies chest pain, or chest pressure and palpitation. Patient denies leg swelling ED course: vital signs blood pressure 165/116, pulse 115, respirations 16, pulse ox 98% on room air. Patient is screened for flu and COVID , also for septic work-up in the emergency room as she was tachycardiic, tachypneic. Patient received ceftriaxone and azithromycin in the emergency room. Patient is flu positive. Patient received [id number] mg p.o. x1. EKG shows sinus tachycardia heart rate 116, SC intervals normal QRS is normal, no ST segment elevations noted. Patient's lab work significant for leukocytosis of 14.3, hypokalemia 3.5. Chest x-ray showing mild CHF. On exam, patient demonstrates pulmonary crackles, At this time, will admit patient with a diagnosis of influenza B, COPD exacerbation failed outpatient therapy with steroids, mild CHF, rule out sepsis. Allergies Green tea Allergy (Unknown, Uncoded 01/14/23 19:48) seizures Home Medications: Cyclobenzaprine [Flexeril*] 1 tab PO TID 01/15/23 Divalproex Sodium [Depakote] 250 mg PO BID 01/15/23 Lisinopril [Zestril] 1 tab PO DAILY 01/15/23 Metoprolol Tartrate 1 tab PO DAILY 01/15/23 methocarbamoL [Methocarbamol] 2 tab PO QID 01/15/23 clonazePAM [Klonopin] 1 mg PO BEDTIME 01/16/23 - Past Medical/Surgical History Diabetic: No -: COPD -: Hypertension -: migraines -: Depression with anxiety -: Pancreatitis -: Coronary artery disease-prior myocardial infarction -: Diverticulitis -: Seizure disorder -: Herniated back disc -: Diverticulitis -: Herniated back disc -: history of seizures -: 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 -: cholecystectomy -: 5 hand surgeries -: tonsilectomy Psychosocial/ Personal History: Lives at home with her boyfriend - Family History Mother -: Heart disease, Hypertension, GI disease, Diabetes, Liver disease, Kidney disease - Social History Alcohol use: No CD- Drugs: No Caffeine use: No Review of Systems 10-point ROS is otherwise unremarkable General: Fever, Chills, Sweats Eyes: Unremarkable ENT: Unremarkable Respiratory: Cough, Dry, Shortness of Breath, SOB with Excertion, Wheezing, Other (bilateral crackles) Cardiovascular: Light Headedness, Other (Denies chest pain, no edema) Gastrointestinal: No Distention, Other Genitourinary: Unremarkable Musculoskeletal: Back Pain (chronic back pain ) Integumentary: Other Neurological: Other Physical Examination - Studies Laboratory Data (last 24 hrs) 05/03/23 05/03/23 05/03/23 10:08 10:08 10:08 WBC 14.30 H Hgb 12.6 Hct 37.8 Plt Count 396 PT 10.1 INR 0.92 APTT 28.6 Sodium 140 Potassium 3.5 BUN 13 Creatinine 0.68 Glucose 98 Total Bilirubin 0.2 AST 22 ALT 28 Alkaline Phosphatase 71 Microbiology Data (last 24 hrs): 05/03/23 10:45 Nasopharnyx Influenza Type A Antigen Screen - Final 05/03/23 10:45 Nasopharnyx Influenza Type B Antigen Screen - Final Assessment and Plan - Plan Assessment and plan COPD exacerbation Productive cough Nicotine dependance Influenza B Hypertension Chronic back pain due to herniated disc Hypertension Coronary artery disease-prior myocardial infarction Seizure disorder Depression Anxiety Assessment and plan COPD exacerbation Productive cough Pneumonia Influenza B * -Nicotine dependance * -Acute on chronic, shortness of breath since this morning, not relieved by the rescue inhalor.On exam, patient demonstrates pulmonary crackles * Antibiotic ordered * Septic work done in the ER as patient is tachycardic and tachypnic and productive cough * Chest x-ra shows mild CHF- lasix 20mg IV bid * Influnze B positive * Oseltamivir 75mg po pid started * Will give IV hydration * 1pack per day current smoker for more than 30 years * Smoking cessation discussed * Pt voiced understanding * Influnza B positive- * Oseltamivir 75mg po pid started Hypertension * chronic, controlled on Lisinipril 20mg po daily and Metoprolol 25mg po bid * Continue the current home meds Chronic back pain due to herniated disc * Chronic, uncontrolled , pt is planned for the back surgery next month as per the pt * Reporting pain 5-7/10 pain scale. * T## ordered Q6hrs as needed for pain Coronary artery disease-prior myocardial infarction Seizure disorder Depression Anxiety * Continue the current home meds Code Status: Full Code DVT prophylaxis: Lovenox Diet: Cardiac diet - Advance Directives Does patient have a Living Will: No Does patient have a Durable POA for Healthcare: No
[2023-05-03] MEDS ORDERED: ALBUTEROL 2.5 MG/3 ML NEB SOL NEB PRN (12:50)
[2023-05-03] MEDS ORDERED: IPRATROPIUM BROM 0.5MG/2.5ML NEB PRN (12:50)
[2023-05-03] MEDS ORDERED: ACETAMINOPHEN 500 MG TAB PO PRN (12:50)
[2023-05-03 13:41] LABS: Absolute Lymphocytes (CBC) 1.4 K/uL (0.7-4.9); Hematocrit 36.9 % (36.0-45.0); Lymphocytes % 7.5 % (15.3-44.8); MCV 87.5 fL (80-100); MPV 6.3 fL (7.6-11.3); Platelets 383 thou/uL (152-406); RBC Red Blood Cell Count 4.22 M/uL (3.86-4.86)
[2023-05-03 14:09] LABS: Albumin 3.4 g/dL (3.4-5.0); Bilirubin Total 0.2 mg/dL (0.2-1.0); Magnesium 1.9 mg/dL (1.6-2.4); Phosphorus 4.5 mg/dL (2.5-4.9); Potassium 3.8 mEq/L (3.5-5.1); Protein, Total 6.9 g/dL (6.4-8.2)
[2023-05-03 14:11] LABS: Troponin High Sensitivity 149.4 pg/mL (<58.9)
[2023-05-03] MEDS: CODEINE 30MG/APAP 300MG TAB PO PRN ×2 (14:47→22:14)
[2023-05-03] MEDS ORDERED: CODEINE 30MG/APAP 300MG TAB ONE (14:58)
[2023-05-03 15:37] VITALS: BMI 39.0
[2023-05-03 17:38] LABS: Blood Morphology Comment NOT SEEN (NOT SEEN); Platelet Estimate ADEQ; White Blood Cell Scan OK (OK)
[2023-05-03] MEDS: METHYLPREDNISOLONE 40 MG INJ IV SCH (17:41)
[2023-05-03] MEDS: FUROSEMIDE 20 MG/ 2ML VIAL IV SCH (18:16)
[2023-05-03] MEDS ORDERED: TRAMADOL HCL 50 MG TAB PO PRN (18:40)
[2023-05-03] MEDS ORDERED: MORPHINE 2 MG/ML SYR IV ONE (18:40)
[2023-05-03] MEDS: ONDANSETRON 4 MG/2 ML VIAL IV PRN (18:52)
[2023-05-03] MEDS: OSELTAMIVIR 75 MG CAP PO SCH (20:35)
[2023-05-03] MEDS ORDERED: clonazePAM 1 MG TAB PO PRN (21:43)
[2023-05-03] MEDS: DIVALPROEX DR 500MG TAB PO SCH (22:14)
[2023-05-04] MEDS: METHYLPREDNISOLONE 40 MG INJ IV SCH ×2 (02:08→09:38)
[2023-05-04 04:41] LABS: Absolute Lymphocytes (CBC) 1.3 K/uL (0.7-4.9); Hematocrit 36.7 % (36.0-45.0); Lymphocytes % 10.6 % (15.3-44.8); MCV 88.1 fL (80-100); MPV 6.7 fL (7.6-11.3); Platelets 370 thou/uL (152-406); RBC Red Blood Cell Count 4.17 M/uL (3.86-4.86)
[2023-05-04 04:50] LABS: Potassium 4.6 mEq/L (3.5-5.1); Valproic Acid (Depakene) Level 36.6 mcg/mL (50.0-100.0)
[2023-05-04 04:51] LABS: Troponin High Sensitivity 78.4 pg/mL (<58.9)
--- NOTE | 2023-05-04 08:13 | P.PN ---
Date of Service: 05/04/23 Patient Name: EUSEBIA TURNER Date of : 74 Patient Status: Inpatient Attending Provider: Randy Parham Date: 05/04/23 Initialization Date: 05/04/23 Patient History Date of Service: 05/04/23 Primary Care Provider: Randy Jacobson Reason for admission: COPD Exacerbation, CHF, Flu B History of Present Illness: Subjective Patient is alert and oriented Reports no new complaints Breathing normally on room air Denies any chest pain discomfort at this time Allergies Green tea Allergy (Unknown, Uncoded 01/14/23 19:48) seizures Home Medications: Cyclobenzaprine [Flexeril*] 1 tab PO TID 01/15/23 Divalproex Sodium [Depakote] 250 mg PO BID 01/15/23 Lisinopril [Zestril] 1 tab PO DAILY 01/15/23 Metoprolol Tartrate 1 tab PO DAILY 01/15/23 methocarbamoL [Methocarbamol] 2 tab PO QID 01/15/23 clonazePAM [Klonopin] 1 mg PO BEDTIME 01/16/23 - Past Medical/Surgical History Diabetic: No -: COPD -: Hypertension -: migraines -: Depression with anxiety -: Pancreatitis -: Coronary artery disease-prior myocardial infarction -: Diverticulitis -: Seizure disorder -: Herniated back disc -: Diverticulitis -: Herniated back disc -: history of seizures -: 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 -: cholecystectomy -: 5 hand surgeries -: tonsilectomy Psychosocial/ Personal History: Lives at home with her boyfriend - Family History Mother -: Heart disease, Hypertension, GI disease, Diabetes, Liver disease, Kidney disease - Social History Alcohol use: No CD- Drugs: No Caffeine use: No Review of Systems 10-point ROS is otherwise unremarkable General: Fever, Chills, Sweats Eyes: Unremarkable ENT: Unremarkable Respiratory: Cough, Dry, Shortness of Breath, SOB with Excertion, Wheezing, Other (bilateral crackles) Cardiovascular: Light Headedness, Other (Denies chest pain, no edema) Gastrointestinal: No Distention, Other Genitourinary: Unremarkable Musculoskeletal: Back Pain (chronic back pain ) Integumentary: Other Neurological: Other Physical Examination Vital Signs: Temperature 97.8, heart rate 105, blood pressure 148/75, SPO2 97% on room air - Studies Microbiology Data (last 24 hrs): 05/03/23 10:45 Nasopharnyx Influenza Type A Antigen Screen - Final 05/03/23 10:45 Nasopharnyx Influenza Type B Antigen Screen - Final Assessment and Plan - Plan Assessment and plan COPD exacerbation Productive cough Nicotine dependance Influenza B Hypertension Chronic back pain due to herniated disc Hypertension Coronary artery disease-prior myocardial infarction Seizure disorder Depression Anxiety Assessment and plan COPD exacerbation Productive cough Pneumonia Influenza B * -Nicotine dependance * -Acute on chronic, shortness of breath since this morning, not relieved by the rescue inhalor.On exam, patient demonstrates pulmonary crackles * Antibiotic ordered * Septic work done in the ER as patient is tachycardic and tachypnic and productive cough * Chest x-ra shows mild CHF- lasix 20mg IV bid * Influnze B positive * Oseltamivir 75mg po pid started * Will give IV hydration * 1pack per day current smoker for more than 30 years * Smoking cessation discussed * Pt voiced understanding * Influnza B positive- * Oseltamivir 75mg po pid started Hypertension * chronic, controlled on Lisinipril 20mg po daily and Metoprolol 25mg po bid * Continue the current home meds Chronic back pain due to herniated disc * Chronic, uncontrolled , pt is planned for the back surgery next month as per the pt * Reporting pain 5-7/10 pain scale. * T## ordered Q6hrs as needed for pain Coronary artery disease-prior myocardial infarction Seizure disorder Depression Anxiety * Continue the current home meds Code Status: Full Code DVT prophylaxis: Lovenox Diet: Cardiac diet - Advance Directives Does patient have a Living Will: No Does patient have a Durable POA for Healthcare: No <Raul Barakat - Last Filed: 05/04/23 08:21> continue tamiflu for flu B COPD treatment Pulm consulted NSTEMI, elevated trop likely demand ischemia; however prior cath with "moderate CAD" cardio consulted echo may need stress avoid IV narcotics <Randy Parham - Last Filed: 05/04/23 20:42>
[2023-05-04] MEDS: lisinopriL 5 MG TAB PO SCH (09:00)
[2023-05-04] MEDS ORDERED: DIVALPROEX DR 250 MG TAB PO SCH (09:00)
[2023-05-04] MEDS: CODEINE 30MG/APAP 300MG TAB PO PRN ×3 (09:33→22:56)
[2023-05-04] MEDS: ASPIRIN EC 81 MG TAB PO SCH (09:34)
[2023-05-04] MEDS: DIVALPROEX DR 500MG TAB PO SCH ×2 (09:34→21:00)
[2023-05-04] MEDS: OSELTAMIVIR 75 MG CAP PO SCH ×2 (09:34→21:00)
[2023-05-04] MEDS: CYCLOBENZAPRINE 10 MG TAB PO SCH ×3 (09:34→21:00)
[2023-05-04] MEDS: METOPROLOL TAR 25 MG TAB PO SCH (09:35)
[2023-05-04] MEDS: FUROSEMIDE 20 MG/ 2ML VIAL IV SCH ×2 (09:36→17:32)
[2023-05-04] MEDS: CEFTRIAXONE 1,000 MG in NA CHLORIDE 0.9% 50 ML IVPB SCH (09:37)
[2023-05-04 10:57] LABS: Specific Gravity 1.025 (1.005-1.030); Urine Bacteria None Seen /HPF (<20); Urine Bilirubin NEGATIVE (Negative); Urine Blood Trace (Negative); Urine Clarity Turbid (Clear); Urine Color Light-Yellow (Yellow); Urine Glucose NEGATIVE (Negative); Urine Mucus Slight /HPF (None Seen); Urine Protein 1+ (Negative); Urine Urobilinogen Normal (Normal); Urine pH 6.5 (5.0-7.0)
--- NOTE | 2023-05-04 12:13 | P.CNS ---
Date of Consult: 05/04/23 Reason for Consult: COPD exacerbation Primary Care Provider: Randy Jacobson Chief Complaint: COPD Exacerbation, CHF, Flu B History of Present Illness: Patient is 53 years of age. With acute shortness of breath woke up at 4 AM pat higiniont is an active smoker history of COPD uses inhalers at home ended up here in the hospital scheduled to have further testing done on her spine spinal stenosis feeling better tested positive for H. influenzae is not coughing up any phlegm Allergies Green tea Allergy (Unknown, Uncoded 01/14/23 19:48) seizures Home Medications: Cyclobenzaprine [Flexeril*] 1 tab PO TID 01/15/23 Divalproex Sodium [Depakote] 250 mg PO BID 01/15/23 Lisinopril [Zestril] 1 tab PO DAILY 01/15/23 Metoprolol Tartrate 1 tab PO DAILY 01/15/23 methocarbamoL [Methocarbamol] 2 tab PO QID 01/15/23 clonazePAM [Klonopin] 1 mg PO BEDTIME 01/16/23 Fluticasone/Umeclidin/Vilanter [Trelegy Ellipta 100-62.5-25] 1 each IH DAILY 30 Days #30 aero 05/04/23 - Past Medical/Surgical History Diabetic: No -: COPD -: Hypertension -: migraines -: Depression with anxiety -: Pancreatitis -: Coronary artery disease-prior myocardial infarction -: Diverticulitis -: Seizure disorder -: Herniated back disc -: Diverticulitis -: Herniated back disc -: history of seizures -: 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 -: cholecystectomy -: 5 hand surgeries -: tonsilectomy Psychosocial/ Personal History: Lives at home with her boyfriend - Family History Mother Medical History: Heart disease, Hypertension, GI disease, Diabetes, Liver disease, Kidney disease - Social History Smoking Status: Current every day smoker Alcohol use: No CD- Drugs: No Caffeine use: No Review of Systems General: Weakness Respiratory: Shortness of Breath Physical Examination Temp Pulse Resp BP Pulse Ox 96.8 F 101 H 18 153/85 H 96 05/04/23 08:00 05/04/23 09:36 05/04/23 09:33 05/04/23 09:36 05/04/23 09:33 General: Alert, In no apparent distress, Oriented x3 Neck: Supple Respiratory: Clear to auscultation bilaterally Cardiovascular: No edema, Regular rate/rhythm, Normal S1 S2 Gastrointestinal: Normal bowel sounds, Soft and benign - Problems (1) COPD exacerbation Current Visit: Yes Status: Acute Plan: Patient is 53 years of age history of COPD active smoker admitted with an exacerbation tested positive for flu he is feeling much better chest x-ray shows cardiomegaly interstitial changes patient's white count was elevated troponins e levated most likely from demand ischemia EKG nonspecific T wave changes Sinus tachycardia Right atrial enlargement Right axis deviation Nonspecific T wave abnormality Abnormal ECG Compared to ECG 03/29/2023 12:26:46 Right-axis deviation now present T-wave abnormality now present Myocardial infarct finding no longer present Patient is scheduled for an echocardiogram and need a stress test
[2023-05-04 14:15] LABS: Absolute Lymphocytes (CBC) 0.9 K/uL (0.7-4.9); Hematocrit 35.9 % (36.0-45.0); Lymphocytes % 6.4 % (15.3-44.8); MCV 87.3 fL (80-100); MPV 6.8 fL (7.6-11.3); Platelets 383 thou/uL (152-406); RBC Red Blood Cell Count 4.11 M/uL (3.86-4.86)
[2023-05-04] MEDS: ALBUTEROL 2.5 MG/3 ML NEB SOL NEB SCH ×2 (14:15→19:25)
[2023-05-04 14:36] LABS: Albumin 3.3 g/dL (3.4-5.0); Bilirubin Total 0.2 mg/dL (0.2-1.0); Magnesium 2.2 mg/dL (1.6-2.4); Phosphorus 3.1 mg/dL (2.5-4.9); Potassium 3.9 mEq/L (3.5-5.1)
[2023-05-04] MEDS: clonazePAM 1 MG TAB PO SCH ×2 (14:36→22:51)
--- NOTE | 2023-05-04 17:04 | EKG ---
Test Date: 2023-05-03 Test Time: 09:38:38 Jail Keeper: DEQUAN MEASUREMENT RESULTS: Intervals: Rate: 107 TN: 136 QRSD: 86 QT: 360 QTc: 480 [place]: P: 53 TN: 136 QRS: 104 T: 33 INTERPRETIVE STATEMENTS: Sinus tachycardia with occasional premature ventricular complexes Biatrial enlargement Rightward axis Pulmonary disease pattern Abnormal ECG Compared to ECG 05/01/2023 13:14:11 Ventricular premature complex(es) now present T-wave abnormality no longer present Electronically Signed On 05-04-23 17:03:32 CDT by Saad Leavitt
--- NOTE | 2023-05-04 17:12 | EKG ---
Test Date: 2023-05-01 Test Time: 13:14:11 Senior Billing Consultant: MAXWELL MEASUREMENT RESULTS: Intervals: Rate: 117 GA: 128 QRSD: 86 QT: 288 QTc: 401 [place]: P: 52 GA: 128 QRS: 121 T: 10 INTERPRETIVE STATEMENTS: Sinus tachycardia Right atrial enlargement Right axis deviation Nonspecific T wave abnormality Abnormal ECG Compared to ECG 03/29/2023 12:26:46 Right-axis deviation now present T-wave abnormality now present Myocardial infarct finding no longer present Electronically Signed On 05-04-23 17:06:08 CDT by Saad Leavitt
[2023-05-04] MEDS: ONDANSETRON 4 MG/2 ML VIAL IV PRN (17:40)
[2023-05-04] MEDS ORDERED: LORazepam 2 MG/ML VIAL IV ONE (19:13)
[2023-05-04] MEDS ORDERED: LORazepam 2 MG/ML VIAL ONE (19:17)
[2023-05-04] MEDS ORDERED: HYDROCODONE/APAP 5/325 MG TAB PO PRN (20:16)
[2023-05-04] MEDS: predniSONE 20 MG TAB PO SCH (21:00)
--- NOTE | 2023-05-04 21:55 | CON ---
Date of Consultation: 05/04/2023 Reason For Consultation: Positive troponin. History Of Present Illness: A 53-year-old female, history of COPD, smoker, history of seizure, conge stive heart failure, bipolar disorder, hypertension, presented to the emergency room with shortness o f breath, lower extremity edema and some cough, found to be positive for flu. Apparently she had a c ardiac workup for a low ejection fraction in the past and she was told she has congestive heart failu re. She said she had history of [place], but never had a stent put in. Past Medical History: As outlined above in HPI. Medications: Refer reconciliation sheet for detailed list. Allergies: NO KNOWN DRUG ALLERGIES. Family History: No premature coronary artery disease or cancer. Social History: Does not drink, but she is a smoker. Does not use any drugs. Review of Systems: All systems reviewed, they were negative except as mentioned in the HPI. Physical Examination: Vital Signs: Reviewed. Head and Neck: Pupils are equal, reactive to light. Intact eye movements. No JVD. No cervical lym phadenopathy. Neck supple. Thyroid is not enlarged. Lungs: Clear to auscultation bilaterally. No rhonchi, rales, or crackles. No accessory muscle use. Heart: Irregular. No extra sounds. Abdomen: Soft, nontender. Bowel sounds positive. No organomegaly. No masses or hernia. No rigidi ty or rebound. Extremities: Trace edema bilaterally. No clubbing, cyanosis. Intact pulses. Skin: No rash. Neurologic: Alert, awake, oriented x3. No gross appreciated lymph nodes: No cervical lymphadenopat hy. Investigations: Labs were reviewed. Troponin is borderline elevated and she was positive for the fl u. Assessment And Recommendation: 1.Troponin elevation. She has no chest pain. This is demand likely. She will need a stress test, but once the flu is completely controlled and this mild leak of troponin could be due to the influenz a. 2.Acute on chronic systolic heart failure exacerbation and she is known to have low ejection fractio n. I recommend Lasix to be continued. She is on 20 mg IV q.12 hours. Monitor BUN, creatinine, elec trolytes. 3.Positive influenza and she is on Tamiflu. Await on the echo. SR/MODL Voice ID: [id number] Report ID: [id number]
[2023-05-04] MEDS ORDERED: MORPHINE 4 MG/ML SYR IV ONE (23:09)
[2023-05-05] MEDS: ALBUTEROL 2.5 MG/3 ML NEB SOL NEB SCH ×3 (01:15→14:25)
[2023-05-05 02:36] LABS: Absolute Lymphocytes (CBC) 1.2 K/uL (0.7-4.9); Hematocrit 33.6 % (36.0-45.0); Lymphocytes % 12.4 % (15.3-44.8); MPV 6.8 fL (7.6-11.3); Platelets 362 thou/uL (152-406); RBC Red Blood Cell Count 3.82 M/uL (3.86-4.86)
[2023-05-05 02:50] LABS: Magnesium 2.3 mg/dL (1.6-2.4); Phosphorus 3.8 mg/dL (2.5-4.9); Potassium 4.1 mEq/L (3.5-5.1); Troponin High Sensitivity 49.4 pg/mL (<58.9)
--- NOTE | 2023-05-05 07:29 | ECHO ---
HEIGHT: 5 ft 0 in WEIGHT: 200 lb 0.054 oz DATE OF STUDY: 05/04/[address]: Randy Parham MD 2-DIMENSIONAL: YES M.MODE: YES DOPPLER: YES COLOR FLOW: YES TDS: PORTABLE: YES DEFINITY: BUBBLE STUDY: DIAGNOSIS: CHEST PAIN/ NON ST ELEVATION MYOCARDIAL INFARCTION CARDIAC HISTORY: CATHERIZATION: SURGERY: PROSTHETIC VALVE: PACEMAKER: MEASUREMENTS (cm) DIASTOLIC (NORMALS) SYSTOLIC (NORMALS) IVSd 1.3 (0.6-1.2) LA Diam 4.1 (1.9-4.0) LVEF 38% LVIDd 4.2 (3.5-5.7) LVIDs 3.5 (2.0-3.5) %FS 18% LVPWd 1.6 (0.6-1.2) Ao Diam (2.0-3.7) 2 DIMENSIONAL ASSESSMENT: RIGHT ATRIUM: NORMAL LEFT ATRIUM: ENLARGED RIGHT VENTRICLE: NORMAL LEFT VENTRICLE: DEPRESSED EJECTION FRACTION TRICUSPID VALVE: NORMAL MITRAL VALVE: MILD MITRAL REGURGITATION PULMONIC VALVE: NORMAL AORTIC VALVE: MODERATE AORTIC INSUFFICIENCY PERICARDIAL EFFUSION: NONE AORTIC ROOT: NORMAL LEFT VENTRICULAR WALL MOTION: MODERATE GLOBAL HYPOKINESIS DOPPLER/COLOR FLOW: SEE BELOW COMMENTS: 1. MODERATELY DEPRESSED LEFT VENTRICULAR EJECTION FRACTION 35-40% 2. MODERATE GLOBAL HYPOKINESIS 3. SEVERE DIASTOLIC DYSFUNCTION 4. LEFT ATRIAL ENLARGEMENT 5. MODERATE AORTIC INSUFFICIENCY 6. MILD MITRAL REGURGITATION TECHNOLOGIST: JAZMINE CORDERO
[2023-05-05 08:50] VITALS: TEMP 97
[2023-05-05 09:07] VITALS: O2SAT 95
[2023-05-05] MEDS: DIVALPROEX DR 500MG TAB PO SCH ×2 (09:08→16:06)
[2023-05-05] MEDS: lisinopriL 5 MG TAB PO SCH (09:08)
[2023-05-05] MEDS: ASPIRIN EC 81 MG TAB PO SCH (09:09)
[2023-05-05] MEDS: predniSONE 20 MG TAB PO SCH (09:09)
[2023-05-05] MEDS: CYCLOBENZAPRINE 10 MG TAB PO SCH ×2 (09:09→16:06)
[2023-05-05] MEDS: clonazePAM 1 MG TAB PO SCH (09:09)
[2023-05-05] MEDS: CEFTRIAXONE 1,000 MG in NA CHLORIDE 0.9% 50 ML IVPB SCH (09:10)
[2023-05-05] MEDS: FUROSEMIDE 20 MG/ 2ML VIAL IV SCH (09:10)
[2023-05-05] MEDS: METOPROLOL TAR 25 MG TAB PO SCH (09:10)
[2023-05-05] MEDS: OSELTAMIVIR 75 MG CAP PO SCH (09:10)
[2023-05-05] MEDS ORDERED: FUROSEMIDE 20 MG/ 2ML VIAL IV ONE (11:30)
[2023-05-05] MEDS ORDERED: NITROGLYCERIN 0.4 MG/TAB SL PRN (12:40)
--- NOTE | 2023-05-05 15:04 | P.PN ---
Subjective Date of Service: 05/05/23 Primary Care Provider: Randy Jacobson Chief Complaint: COPD Exacerbation, CHF, Flu B Patient is coughing intermittently. He reports chest pain-improved with deep breathing. Physical Examination - Vital Signs Temperature: 97.0 F Blood Pressure: 112/62 Pulse: 86 Respirations: 14 Pulse Ox (%): 93 - Physical Exam General: Alert, In no apparent distress, Obese HEENT: Mucous membr. moist/pink, Sclerae nonicteric Respiratory: Normal air movement, Expiratory wheezes (Mild scattered wheezes) Cardiovascular: No edema, Regular rate/rhythm, Normal S1 S2 Gastrointestinal: Normal bowel sounds, Soft and benign, Non-distended, No tenderness Musculoskeletal: No swelling Integumentary: No rashes, No cyanosis Neurological: Normal strength at 5/5 x4 extr Assessment And Plan - Plan Diagnosis COPD exacerbation Influenza B Hypertension Chronic back pain due to herniated disc Hypertension Coronary artery disease-prior myocardial infarction Seizure disorder Depression Anxiety Nicotine dependance Plan: COPD exacerbation Influenza B * Nicotine dependance * Chest x-ra shows mild CHF- lasix 20mg IV bid * Influnze B positive * Oseltamivir 75mg po pid started * Smoking cessation discussed * Neb treatment. Acute on chronic systolic heart * Cardiology input appreciated * Stress test as outpatient once influenza respiratory infection resolved * Diuresis with IV Lasix * Monitor intake and output * Monitor renal function. Hypertension * chronic, controlled on Lisinipril 20mg po daily and Metoprolol 25mg po bid * Continue the current home meds Chronic back pain due to herniated disc * Chronic, uncontrolled , pt is planned for the back surgery next month as per the pt * Analgesics as needed. Coronary artery disease-prior myocardial infarction Chest pain Seizure disorder Depression Anxiety * Chest pain appears atypical * Cardiology recommend stress test as outpatient * Continue the current home meds Code Status: Full Code DVT prophylaxis: Lovenox
[2023-05-05 16:04] VITALS: BP 128/78
[2023-05-05] MEDS: CODEINE 30MG/APAP 300MG TAB PO PRN (16:05)
[2023-05-05] MEDS ORDERED: FUROSEMIDE 40 MG/4 ML VIAL IV SCH (17:00)
[2023-05-05] MEDS ORDERED: FUROSEMIDE 20 MG/ 2ML VIAL IV SCH (17:00)
--- NOTE | 2023-05-05 17:19 | P.DS ---
Admission Date: 05/03/23 Discharge Date: 05/05/23 Primary Care Provider: Randy Jacobson Disposition: ROUTINE DISCHARGE Discharge Condition: FAIR Reason for Admission: COPD Exacerbation, CHF, Flu B Brief History of Present Illness: Ms. Shaggy Romero 53-year-old female with a history of COPD, smoker, depression, seizures, arthritis, anxiety, bipolar disorder CHF, depression, diverticulitis, herniated disc of the back, hypertension, intestinal mask, history of myocardial infection. Patient presented to the emergency room with increased shortness of breath which did not respond to her inhalers at home. Patient reported productive cough, no fever or chills, no nausea or vomiting. patient denies chest pain, or chest pressure and palpitation. Patient denied leg swelling ED course: vital signs blood pressure 165/116, pulse 115, respirations 16, pulse ox 98% on room air. Patient is screened for flu and COVID , also for septic work-up in the emergency room as she was tachycardiic, tachypneic. Patient received ceftriaxone and azithromycin in the emergency room. Patient is flu positive. Patient received [id number] mg p.o. x1. EKG showed sinus tachycardia heart rate 116, MI intervals normal QRS is normal, no ST segment elevations noted. Patient's lab work significant for leukocytosis of 14.3, hypokalemia 3.5. Chest x-ray showing mild CHF. Patient admitted for further management of COPD exacerbation, congestive heart failure and influenza B infection. Hospital Course: Diagnosis COPD exacerbation Influenza B Hypertension Chronic back pain due to herniated disc Hypertension Coronary artery disease-prior myocardial infarction Seizure disorder Depression Anxiety Nicotine dependance Patient was admitted to the medical floor and the following medical problems addressed: COPD exacerbation Influenza B * Nicotine dependance * Chest x-ra shows mild CHF- * Influnze B positive * Patient placed oseltamivir 75mg po. * Seen by pulmonary Dr. Moore and COPD managed with inhalers, neb treatment and p.o. steroids * Smoking cessation discussed * Patient discharged with inhalers and short course prednisone therapy and Tamiflu. * Patient requested to be discharged today in order to make her appointment at [facility] to meet with her neurosurgeon. Acute on chronic systolic heart * Seen by cardiology Dr. Leavitt who recommend stress test as outpatient once influenza respiratory infection resolved * Echocardiogram showed EF of 35 to 40% * Patient diuresed with IV Lasix * She is discharged with oral Lasix maintenance. Hypertension * chronic, controlled on Lisinipril 20mg po daily and Metoprolol 25mg po bid Chronic back pain due to herniated disc * Chronic, uncontrolled , pt is planned for the back surgery next month as per the pt * Pain was managed with [place] as needed. She is discharged with a few days of [place] Coronary artery disease-prior myocardial infarction Chest pain Seizure disorder Depression Anxiety * Chest pain appeared atypical * Troponin trended negative. * Cardiology recommend stress test as outpatient * Patient placed on aspirin. Vital Signs/Physical Exam: Temp Pulse Resp BP Pulse Ox 97.0 F 101 H 16 128/78 93 05/05/23 16:00 05/05/23 16:00 05/05/23 16:00 05/05/23 16:00 05/05/23 16:00 General: Alert, In no apparent distress, Oriented x3, Obese HEENT: Mucous membr. moist/pink, Sclerae nonicteric Neck: Supple, JVD not distended Respiratory: Clear to auscultation bilaterally, Diminished Cardiovascular: No edema, Regular rate/rhythm, Normal S1 S2 Gastrointestinal: Normal bowel sounds, Soft and benign, Non-distended Musculoskeletal: No swelling, No tenderness Integumentary: No rashes, No cyanosis Neurological: Normal speech, Normal strength at 5/5 x4 extr, Cranial nerves 3-12 intact Laboratory Data at Discharge: WBC 9.90 thou/uL (4.3-10.9) 05/05/23 01:57 Hgb 11.2 g/dL (12.0-15.0) L 05/05/23 01:57 Hct 33.6 % (36.0-45.0) L 05/05/23 01:57 Plt Count 362 thou/uL (152-406) 05/05/23 01:57 PT 10.1 SECONDS (9.5-12.5) 05/03/23 10:08 INR 0.92 05/03/23 10:08 APTT 28.6 SECONDS (24.3-36.9) 05/03/23 10:08 Sodium 137 mEq/L (136-145) 05/05/23 01:57 Potassium 4.1 mEq/L (3.5-5.1) 05/05/23 01:57 BUN 20 mg/dL (7-18) H 05/05/23 01:57 Creatinine 0.84 mg/dL (0.55-1.02) 05/05/23 01:57 Glucose 132 mg/dL (74-106) H 05/05/23 01:57 Phosphorus 3.8 mg/dL (2.5-4.9) 05/05/23 01:57 Magnesium 2.3 mg/dL (1.6-2.4) 05/05/23 01:57 Total Bilirubin 0.2 mg/dL (0.2-1.0) 05/04/23 13:50 AST 34 U/L (15-37) 05/04/23 13:50 ALT 48 U/L (13-56) 05/04/23 13:50 Alkaline Phosphatase 76 U/L (45-117) 05/04/23 13:50 Triglycerides 131 mg/dL (<150) 05/03/23 13:35 Cholesterol 217 mg/dL (<200) H 05/03/23 13:35 HDL Cholesterol 68 mg/dL (40-60) H 05/03/23 13:35 Cholesterol/HDL Ratio 3.19 05/03/23 13:35 Home Medications: Cyclobenzaprine [Flexeril*] 1 tab PO TID 01/15/23 Divalproex Sodium [Depakote] 250 mg PO BID 01/15/23 Lisinopril [Zestril] 1 tab PO DAILY 01/15/23 Metoprolol Tartrate 1 tab PO DAILY 01/15/23 methocarbamoL [Methocarbamol] 2 tab PO QID 01/15/23 clonazePAM [Klonopin] 1 mg PO BEDTIME 01/16/23 Fluticasone/Umeclidin/Vilanter [Trelegy Ellipta 100-62.5-25] 1 each IH DAILY 30 Days #30 aero 05/04/23 Aspirin [Roxanne Chewable Aspirin] 81 mg PO DAILY #30 tab.chew 05/05/23 Furosemide [Lasix] 40 mg PO DAILY #30 tab 05/05/23 Hydrocodone 5/APAP 325 [[place] 5/325*] 1 tab PO Q6H PRN #10 tab 05/05/23 Nitroglycerin [Nitrostat*] 0.4 mg SL UD PRN #3 tab 05/05/23 Oseltamivir [Tamiflu*] 75 mg PO BID #6 cap 05/05/23 predniSONE [Prednisone*] 20 mg PO BID #10 tab 05/05/23 New Medications: Aspirin [Roxanne Chewable Aspirin] 81 mg PO DAILY #30 tab.chew Furosemide [Lasix] 40 mg PO DAILY #30 tab Nitroglycerin [Nitrostat*] 0.4 mg SL UD PRN #3 tab PRN Reason: Pain Scale 2-4 (Mild) Hydrocodone 5/APAP 325 [[place] 5/325*] 1 tab PO Q6H PRN #10 tab PRN Reason: Pain Scale 8-10 (Severe) predniSONE [Prednisone*] 20 mg PO BID #10 tab Oseltamivir [Tamiflu*] 75 mg PO BID #6 cap Fluticasone/Umeclidin/Vilanter [Trelegy Ellipta 100-62.5-25] 1 each IH DAILY 30 Days #30 aero Diet: AHA Activity: Ad geovanna Followup: NONE,NONE [Primary Care Provider] - 1 Week Saad Leavitt MD [ACTIVE - CAN ADMIT] - 1-2 Weeks (For arrangement for stress test.) Time spent managing pt's care (in minutes): 35
== END 2023-05-05 18:23 | disposition home or self-care (01) | DRG 193 ==
LOC: ER 09:19 → ERHOLD 12:46 → 2ND 15:37
PROVIDERS: ADMIT Hospitalist; ATTEND Internal Medicine
DX: J10.00 Influenza due to other identified influenza virus with unspecified type of pneumonia (principal); I50.23 Acute on chronic systolic (congestive) heart failure; J44.1 Chronic obstructive pulmonary disease with (acute) exacerbation; I24.89 Other forms of acute ischemic heart disease; I11.0 Hypertensive heart disease with heart failure; E87.6 Hypokalemia; F41.9 Anxiety disorder, unspecified; F32.A Depression, unspecified; G89.29 Other chronic pain; M54.89 Other dorsalgia; M19.90 Unspecified osteoarthritis, unspecified site; G40.909 Epilepsy, unspecified, not intractable, without status epilepticus; I25.10 Atherosclerotic heart disease of native coronary artery without angina pectoris; F17.200 Nicotine dependence, unspecified, uncomplicated; I25.2 Old myocardial infarction; Z88.8 Allergy status to other drugs, medicaments and biological substances; Z85.41 Personal history of malignant neoplasm of cervix uteri; Z86.73 Personal history of transient ischemic attack (TIA), and cerebral infarction without residual deficits; Z91.09 Other allergy status, other than to drugs and biological substances; Z90.49 Acquired absence of other specified parts of digestive tract; Z79.899 Other long term (current) drug therapy; Z20.822 Contact with and (suspected) exposure to COVID-19
CPT/HCPCS: 36415; 71045; 74177; 80048; 80053; 80061; 80164; 81001; 83605; 83690; 83735; 83880; 84100; 84484; 85025; 85610; 85730; 87040; 87635; 87804; 93005; 93306; 94640; 94760; 96365; 96366; 96375; 99284; 99285; J0696; J1100; J1940; J2270; J2405; J2920; J7030; J7050; J7512; J7613; J7644; Q9967

== ENCOUNTER 2023-05-15 11:49 | Inpatient (IN) | payer OTHER ==
--- OUTSIDE RECORDS SUMMARY | 2023-05-15 12:01 | XMS REPORT | Continuity of Care Document ---
:1970 Author Organization [facility] t Address [address] [place] [address] Care Team Providers Name Role Phone Aneta Silva Primary Care Physician [phone] ADAM GARCIA Attending Clinician Unavailable THOMAS LOZOYA Attending Clinician Unavailable MARIAH ALDRIDGE Attending Clinician Unavailable Adam Garcia MD Attending Clinician Connie Davey MD Attending Clinician Mariah Aldridge MD Attending Clinician Thomas Lozoya MD Attending Clinician [phone] CONNIE DAVEY Attending Clinician Unavailable Alfonso ALVARADO Attending Clinician Unavailable Alfonso Lopez Attending Clinician RITCHIE WARREN Attending Clinician Unavailable Ritchie Warren MD Attending Clinician Shy Beckamn RN Attending Clinician Reji ELIZONDO, Halima Hummel Attending Clinician Jen Geller MD Attending Clinician Parrish Diane MD Attending Clinician [phone] PARRISH DIANE Attending Clinician Unavailable LORENZA LOWRY Attending Clinician Unavailable Sav Rondon MD Attending Clinician Lorenza Lowry MD Attending Clinician Maria Teresa Nicole LVN Attending Clinician CHANTEL MATTHEWS Attending Clinician Unavailable CHANTEL MATTHEWS Attending Clinician Unavailable Brandyn Ibrahim MD Attending Clinician SELINA MARTINES Attending Clinician Unavailable Sapna Vargas DO Attending Clinician Glory Sarah MD Attending Clinician [phone] Selina Martines MD Attending Clinician Vaccine, [place] Pedi Attending Clinician Unavailable Jose Pak MD Attending Clinician JOSE PAK Attending Clinician Unavailable NICHELLE VIRK Attending Clinician Unavailable Nichelle Bishop Attending Clinician Doctor Unassigned, [place] Attending Clinician Unavailable Miky Nava RN Attending Clinician Unavailable Fabrice Gordillo Attending Clinician Lydia Eaton Attending Clinician Unknown, Attending Attending Clinician Unavailable UNKNOWN, ATTENDING Attending Clinician Unavailable Anali Rascon Attending Clinician Yehuda Arcos MD Attending Clinician ADAM GARCIA Admitting Clinician Unavailable MARIAH ALDRIDGE Admitting Clinician Unavailable CONNIE DAVEY [...] Number Effective Date Expiration Date Benjamin RICARDO [id number] 2023 00:00:00 MEDICAID PENDING PENDING 2022 00:00:00 Problems Condition Condition Condition Status Onset Resolution Last Treating Co mments Source Name Details Category Date Date Treatment Clinician Date Cord Cord Disease Recurre [facility] 9[facility] 00:[facility]: [facility] 00 Center Cauda Cauda Disease Recurre [facility] compressio compressio 00:00: Mn dical n n 00 Center Seizure Seizure Disease Recurre [facility] 00:[facility]: Medical 00 [place] Cardiomyop Cardiomyop Disease Active U nivers athy athy 1-13 ity of 00:00: [place] 00 Medical Branch NSVT NSVT Disease Active Univers (nonsustai (nonsustai 1-13 it y of keisha keisha 00:00: [place] ventricula ventricula 00 Mn dical r r Branch tachycardi tachycardi a) [...] 00:00: [place] involving involving 00 Medi kwame ewiiaapaayp ewiiaapaayp Branch coronary coronary artery of artery of ewiiaapaayp ewiiaapaayp heart heart without without angina angina pectoris pectoris Snores Snores Disease Active Univers 1-12 ity of 00:00: [place] 00 Medical Branch Cigarette Cigarette Disease Active Uni vers smoker smoker 1-12 ity of 00:00: [place] [facility] Primary Primary Disease Active Univers hypertensi hypertensi 1-12 it y of on on 00:00: [place] [facility] Other Other Disease Active Univers hyperlipid hyperlipid 1-12 it y of emia emia 00:00: [place] [facility] Coronary Coronary Disease Active Unive rs artery artery 1-12 ity of disease disease 00:00: [place] involving involving 00 Medi kwame ewiiaapaayp ewiiaapaayp Branch coronary coronary artery of artery of ewiiaapaayp ewiiaapaayp heart heart without without angina angina pectoris [...] e symptoms 9-25 it y of 00:00: [place] [facility] Bipolar Bipolar Disease Active Univers [...] spinal 3-11 ity of stenosis stenosis 00:00: [place] [facility] Right-side Right-side Disease Active U nivers d low back d low back 3-11 it y of pain with pain [place] 00:[place] sci[place] sciatic[place], 00 Medi kwame sciatica sciatica Branch laterality laterality unspecifie unspecifie d d Generalize Generalize Disease Active U nivers d anxiety d anxiety 3- ity of disorder disorder 00:00: [place] [facility] Agoraphobi Agoraphobi Disease Active U nivers a a 3- ity of 00:00: [place] [facility] Bipolar Bipolar Disease Active Univers disorder, disorder, 3 ity of [place] remission, remission, 00 Me dical most most Branch recent recent episode episode manic manic 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 3 it y of disorder disorder 00:00: [place] [facility] Breast Breast Disease Active Univers mass, left mass, left 3 it y of 00:00: [place] [facility] Anxiety Anxiety Disease Active Univers 3 ity of 00:00: [place] [facility] Lower back Lower back Disease Active U nivers pain pain 3 ity of 00:00: [place] [facility] High blood High blood Disease Active U nivers pressure pressure 3 ity of 00:00: [place] [facility] COPD COPD Disease Active Univers (chronic (chronic 3 ity of obstructiv obstructiv [place] Medical pulmonary pulmonary Bran ch disease) disease) Obesity Obesity Disease Active Univers 3 ity of 00:00: [place] [facility] Allergies, Adverse Reactions, Alerts Allergy Allergy Status Severity Reaction(s) Onset Inactive Treating Comm ents Source Name Type Date Date Clinician FLUOXETI Allergy Active [facility] GREEN Allergy Active [facility] TEA 9[facility]10 [facility] 00 Center LEVETIRA Allergy Active N\\T\\V [facility] CETAM 9-10 [facility]: [facility] 00 Center Fluoxeti Propensi Active [facility] ty to 9-10 [facility] adverse 00:00: Medical reaction 00 Center s Green Propensi Active Seizure [facility] Tea ty to 9-10 like [facility] adverse 00:00: activity Medical reaction 00 Center s Levetira Propensi Active Nausea And Intensifi [facility] cetam ty to Vomiting 03-29 es [facility] adverse 00:00: seizure Medical reaction 00 Center s LEVETIRA DRUG Active Other-Cmnt Univ ers CETAM [...] s GREEN Allergy Active [facility] TEA 08-02 [facility] 00:[facility]: Medical 00 Center FLUOXETI Allergy Active Med Rash 2022-0 [facility] NE 08-02 00:00: 00 Fluoxeti Propensi Active Unknown [...] to Branch drug FLUOXETI DRUG Active Hives 2014-0 Univers NE HCL INGREDI 03-19 ity of 00:00: [place] 00 Medical Branch Fluoxeti Propensi Active Hives 2014- Univer s ne Hcl ty to 03-19 ity of adverse 00:00: [place] reaction 00 Medical s Branch Family History Family Member Diagnosis Comments Start Date Stop Date Source Natural mother [facility] Natural mother Diabetes [facility] Natural mother [facility] Natural mother [facility] Natural mother Kid[facility] disease [facility] Natural mother Stroke [facility] Paternal uncle Diabetes [facility] Social History Social Habit Start Date Stop Date Quantity Comments Source History of tobacco Cigarette Smoker [facility] use Medical Center History SDOH [facility] Alcohol Frequency Medical Center History SDOH [facility] Alcohol Std Drinks Medica l Center History SDOH [facility] Alcohol Binge Medical [place] [facility] History SDOH [facility] Homeless [facility] Last Year History SDOH Social Unive rsity of [place] [facility] Med ical Together Branch History SDOH Social Unive rsity of [facility] Medical Branch History SDOH Social Unive rsity of [facility] Medical Membership Branch History SDOH Social Unive rsity of [facility] Medical Meetings Branch Alcohol intake 2023-04-03 2023-04-03 .43 /d [facility] 00:[facility]00 00:00:00 Medical Center History SDOH 2023-03-30 2023-03-[address] [facility] Housing Unable to 00:00:00 00:00:00 Medical Center Pay History SDOH 2023-03-30 2023-03-[address] [facility] Housing Places 00:00:00 00:00:00 Medical Ce nter Lived Cigarettes smoked 2023-03-29 2023-03-[address] [facility] current (pack per 00:00:00 00:00:00 Medical Center day) - Reported Alcohol Comment 2023-03-29 2023-03-[address] [facility] 00:00:00 00:00:00 Medical Center Cigarette 2023-03-29 2023-03-[address] [facility] pack-years 00:00:00 00:00:00 Medical Center Exposure to 2022-12-01 2022-12-11 Not sure University of SARS-CoV-2 (event) 00:00:00 08:54:00 [place] [facility] History SDOH Social 2022-08-01 2022-08-01 5 Unive rsity of [place] Phone 00:00:00 00:00:00 [facility] edical Branch History SDCO Social 2022-08-01 2022-08-01 5 Unive rsity of [facility] Living 00:00:00 00:00:00 [place] [facility] History SDCO 2022-08-01 2022-08-01 0 University o f Physical Activity 00:00:00 00:00:00 [facility] edical DPW Branch History SDCO 2022-08-01 2022-08-01 0 University o f Physical Activity 00:00:00 00:00:00 [facility] edical MPS Branch History SDCO 2022-08-01 2022-08-01 3 University o f Financial 00:00:00 00:00:00 [place] [facility] History SDCO Food 2022-08-01 2022-08-01 1 Univers ity of Worry 00:00:00 00:00:00 [place] [facility] History SDCO Food 2022-08-01 2022-08-01 1 Univers ity of Scarcity 00:00:00 00:00:00 [place] [facility] History [facility] 2022-08-01 2022-08-01 2 University o f Transport Med 00:00:00 00:00:00 [place] Medic al Branch History [facility] 2022-08-01 2022-08-01 2 [place] o f Transport Non-Med 00:00:00 [facility]00[facility] Tobacco use and 2022-07-31 2022-07-31 Smokeless Universit y of exposure 00:00:00 00:00:00 tobacco non-user [facility] dical Branch Education 2022-07-31 2022-07-31 14 [facility] 00:00:00 00:00:00 [facility] Sex Assigned At [address] [facility] 00:00:00 00:00:00 Medical Center Smoking Status Start Date Stop Date Source Smokes tobacco daily 2023-03-29 00:00:00 [facility] Medications Ordered Filled Start Stop Current Ordering Indication Dosage Frequency Signature Comments Components Source Medication Medication Date Date Medication? Clinician (SIG) Name Name furosemide 2023- Yes 20mg QD Take [address] [facility] [address] (LASIX) 20 9-15 09-14 tablet (20 [facility] MG tablet 00:00: 23:59 mg total) Me dical 00 :00 by mouth [place] daily. DULoxetine 2023- Yes 30mg QD Take [...] QD Take [address] [facility] MG EC 9-15 12-14 tablet (81 [facility] tablet 00:00: 23:59 mg total) Medic al 00 :00 by mouth Center daily for 90 days. divalproex 2022- Yes 500mg Q.5D Take [address] [facility] [address] (DEPAKOTE) 9-15 12-14 tablet [facility] 500 MG EC 00:00: 23:59 (500 mg Medi kwame tablet 00 :00 total) by Center mouth 2 (two) times daily for 90 days. gabapentin 2022- Yes 300mg Q.[id number] Take [address] [facility] (NEURONTIN) 04-03-14 [id number] capsule [facility] 300 MG 00:00: 23:59 3D (300 mg Medical capsule 00 :00 total) by Center mouth 3 (three) times daily for 90 days. aspirin 81 2022- Yes 81mg QD Take [address] [facility] [address] MG EC 9-15 12-14 tablet (81 [facility] tablet 00:00: 23:59 mg total) Medic al 00 :00 by mouth Center daily for 90 days. divalproex 2022- Yes 500mg Q.5D Take [address] [facility] [address] (DEPAKOTE) 9-15 12-14 tablet [facility] 500 MG EC 00:00: 23:59 (500 mg Medi kwame tablet 00 :00 total) by Center mouth 2 (two) times daily for 90 days. gabapentin 2022- Yes 300mg Q.[id number] Take [address] [facility] [address] (NEURONTIN) 04-03-14 [id number] capsule [facility] 300 MG 00:00: 23:59 3D (300 mg Medical capsule 00 :00 total) by Center mouth 3 (three) times daily for 90 days. aspirin 81 2022- Yes 81mg QD Take [address] [facility] [address] MG EC 9-15 12-14 tablet (81 [facility] tablet 00:00: 23:59 mg total) Medic al 00 :00 by mouth Center daily for 90 days. divalproex 2022- Yes 500mg Q.5D Take [address] [facility] [address] (DEPAKOTE) 9-15 12-14 tablet [facility] 500 MG EC 00:00: 23:59 (500 mg Medi kwame tablet 00 :00 total) by Center mouth 2 (two) times daily for 90 days. gabapentin 2022- Yes 300mg Q.[id number] Take [address] [facility] (NEURONTIN) 04-03 [id number] capsule [facility] 300 MG 00:00: 23:59 3D (300 mg Medical capsule 00 :00 total) by Center mouth 3 (three) times daily for 90 days. aspirin 81 2022- Yes 81mg QD Take [address] [facility] MG EC 04-0314 tablet (81 [facility] tablet 00:00: 23:59 mg total) Medic al 00 :00 by mouth Center daily for 90 days. divalproex 2022- Yes 500mg Q.5D Take [address] [facility] (DEPAKOTE) 04-03 tablet [facility] 500 MG EC 00:00: 23:59 (500 mg Medi kwame tablet 00 :00 total) by Center mouth 2 (two) times daily for 90 days. gabapentin 2022-2022- Yes 300mg Q.[id number] Take [address] [facility] (NEURONTIN) 04-03 [id number] capsule [facility] 300 MG 00:00: 23:59 3D (300 mg Medical capsule 00 :00 total) by Center mouth 3 (three) times daily for 90 days. aspirin 81 2022- Yes 81mg QD Take [address] [facility] [address] MG EC 04-0314 tablet (81 [facility] tablet 00:00: 23:59 mg total) Medic al 00 :00 by mouth Center daily for 90 days. divalproex 2022-2022- Yes 500mg Q.5D Take [address] [facility] [address] (DEPAKOTE) 04-0314 tablet [facility] 500 MG EC 00:00: 23:59 (500 mg Medi kwame tablet 00 :00 total) by Center mouth 2 (two) times daily for 90 days. gabapentin 2022-2022- Yes 300mg Q.[id number] Take [address] [facility] (NEURONTIN) 04-03 [id number] capsule [facility] 300 MG 00:00: 23:59 3D (300 mg Medical capsule 00 :00 total) by Center mouth 3 (three) times daily for 90 days. aspirin 81 2022- Yes 81mg QD Take [address] [facility] [address] MG EC 04-0314 tablet (81 [facility] tablet 00:00: 23:59 mg total) Medic al 00 :00 by mouth Center daily for 90 days. divalproex 2022- Yes 500mg Q.5D Take [address] [facility] (DEPAKOTE) 04-03 tablet [facility] 500 MG EC 00:00: 23:59 (500 mg Medi kwame tablet 00 :00 total) by Center mouth 2 (two) times daily for 90 days. gabapentin 2022- Yes 300mg Q.[id number] Take [address] [facility] (NEURONTIN) 04-03 [id number] capsule [facility] 300 MG 00:00: 23:59 3D (300 mg Medical capsule 00 :00 total) by Center mouth 3 (three) times daily for 90 days. clonazePAM 2022- Yes .25mg Take 0.[address] (KlonoPIN) 9-15 10-15 tablets [facility] 0.5 MG 00:00: 23:59 (0.25 mg Medica l tablet 00 :00 total) by Center mouth 2 (two) times daily as needed for Anxiety for up to 30 days. Max Daily Amount: 0.5 mg clonazePAM 2022- Yes .25mg Take 0.[address] (KlonoPIN) 9-15 10-15 tablets [facility] 0.5 MG 00:00: 23:59 (0.25 mg Medica l tablet 00 :00 total) by Center mouth 2 (two) times daily as needed for Anxiety for up to 30 days. Max Daily Amount: 0.5 mg clonazePAM 2022-2022- No .25mg Take 0.[address] (KlonoPIN) 9-15 10-15 tablets [facility] 0.5 MG 00:00: 23:59 (0.25 mg Medica l tablet 00 :00 total) by Center mouth 2 (two) times daily as needed for Anxiety for up to 30 days. Max Daily Amount: 0.5 mg clonazePAM 2022-0 2022- No .25mg Take 0.[address] (KlonoPIN) 9-15 10-15 tablets [facility] 0.5 MG 00:00: 23:59 (0.25 mg Medica l tablet 00 :00 total) by Center mouth 2 (two) times daily as needed for Anxiety for up to 30 days. Max Daily Amount: 0.5 mg clonazePAM 2023-0 2023- No .25mg Take 0.[address] (KlonoPIN) 9-15 10-15 tablets [facility] 0.5 MG 00:00: 23:59 (0.25 mg Medica l tablet 00 :00 total) by Center mouth 2 (two) times daily as needed for Anxiety for up to 30 days. Max Daily Amount: 0.5 mg clonazePAM 2023-0 2023- No .25mg Take 0.[address] (KlonoPIN) 9-15 10-15 tablets [facility] 0.5 MG 00:00: 23:59 (0.25 mg Medica l tablet 00 :00 total) by Center mouth 2 (two) times daily as needed for Anxiety for up to 30 days. Max Daily Amount: 0.5 mg HYDROcodone 3-0 3- No 1{tbl} Take [address] -acetaminop 9-15 09-25 tablet by [facility] (NORCO 00:00: 23:59 mouth Medic al 10-325) 00 :00 every 6 Center 10-325 mg (six) per tablet hours as needed for up to 10 days. Max Daily Amount: 4 tablets methocarbam 3-0 3- No 500mg Q.25D Take [address] oL 9-15 -25 tablet [facility] (ROBAXIN) 00:00: 23:59 (500 mg Medi kwame 500 MG 00 :00 total) by Center tablet mouth 4 (four) times daily for 10 days. HYDROcodone 3-0 3- No 1{tbl} Take [address] -acetaminop 9-15 09-25 tablet by [facility] price (NORCO 00:00: 23:59 mouth Medic al 10-325) 00 :00 every 6 Center 10-325 mg (six) per tablet hours as needed for up to 10 days. Max Daily Amount: 4 tablets methocarbam 2023-0 2023- No 500mg Q.25D Take [address] oL 9-15 09-25 tablet [facility] (ROBAXIN) 00:00: 23:59 (500 mg Medi kwame 500 MG 00 :00 total) by Center tablet mouth 4 (four) times daily for 10 days. HYDROcodone 2023-0 2023- No 1{tbl} Take [address] -acetaminop 9-15 09-25 tablet by [facility] (NORCO 00:00: 23:59 mouth Medic al 10-325) 00 :00 every 6 Center 10-325 mg (six) per tablet hours as needed for up to 10 days. Max Daily Amount: 4 tablets methocarbam 2023-0 2023- No 500mg Q.25D Take [address] oL 9-15 09-25 tablet [facility] (ROBAXIN) 00:00: 23:59 (500 mg Medi kwame 500 MG 00 :00 total) by Center tablet mouth 4 (four) times daily for 10 days. HYDROcodone 3-0 2023- No 1{tbl} Take [address] -acetaminop 9-15 09-25 tablet by [facility] (NORCO 00:00: 23:59 mouth Medic al 10-325) 00 :00 every 6 Center 10-325 mg (six) per tablet hours as needed for up to 10 days. Max Daily Amount: 4 tablets methocarbam 2023-0 2023- No 500mg Q.25D Take [address] oL 9-15 09-25 tablet [facility] (ROBAXIN) 00:00: 23:59 (500 mg Medi kwmae 500 MG 00 :00 total) by Center tablet mouth 4 (four) times daily for 10 days. HYDROcodone 3-0 3- No 1{tbl} Take [address] -acetaminop 9-15 09-25 tablet by [facility] (NORCO 00:00: 23:59 mouth Medic al 10-325) 00 :00 every 6 Center 10-325 mg (six) per tablet hours as needed for up to 10 days. Max Daily Amount: 4 tablets methocarbam 2023-0 2023- No 500mg Q.25D Take [address] oL 9-15 09-25 tablet [facility] (ROBAXIN) 00:00: 23:59 (500 mg Medi kwame 500 MG 00 :00 total) by Center tablet mouth 4 (four) times daily for 10 days. HYDROcodone 2023-0 2023- No 1{tbl} Take [address] -acetaminop 9-15 09-25 tablet by [facility] price (NORCO 00:00: 23:59 mouth Medic al [...] 4 (four) times daily for 10 days. lisinopriL 2022-2022- No 5mg QD Take [address] [facility] (PRINIVIL,Z 04-03 tablet (5 [facility] [facility] ESTRIL) 5 00:00: 00:00 mg total) Me dical MG tablet 00 :00 by mouth Center daily. aspirin 81 2022- No 81mg QD Take [address] [facility] MG EC 04-03 tablet (81 [facility] tablet 00:00: 00:00 mg total) Medic al 00 :00 by mouth Center daily for 90 days. DULoxetine 2022-2022- No 30mg QD Take [address] [facility] (CYMBALTA) 04-03 capsule [facility] 30 MG 00:00: 00:00 (30 mg Medical capsule 00 :00 total) by Center mouth daily. furosemide 2022-2022- No 20mg QD Take [address] [facility] (LASIX) 20 04-03 tablet (20 [facility] MG tablet 00:00: 00:00 mg total) Me dical 00 :00 by mouth Center daily. lisinopriL 2022-2022- No 5mg QD Take [address] [facility] (PRINIVIL,Z 04-03 tablet (5 [facility] ESTRIL) 5 00:00: 00:00 mg total) Me dical MG tablet 00 :00 by mouth Center daily. aspirin 81 2022-2022- No 81mg QD Take [address] [facility] MG EC 04-03 tablet (81 [facility] tablet 00:00: 00:00 mg total) Medic al 00 :00 by mouth Center daily for 90 days. DULoxetine 2022-2022- No 30mg QD Take [address] [facility] (CYMBALTA) 04-03 capsule [facility] 30 MG 00:00: 00:00 (30 mg Medical capsule 00 :00 total) by Center mouth daily. furosemide 3-0 2023- No 20mg QD Take [address] [facility] (LASIX) 20 9-15 09-15 tablet (20 [facility] MG tablet 00:00: 00:00 mg total) Me dical 00 :00 by mouth Center daily. lisinopriL 3-0 2023- No 5mg QD Take [address] [facility] (PRINIVIL,Z -15 -15 tablet (5 [facility] ESTRIL) 5 00:00: 00:00 mg total) Me dical MG tablet 00 :00 by mouth Center daily. aspirin 81 2022-0 2023- No 81mg QD Take [address] [facility] MG EC -15 -15 tablet (81 [facility] tablet 00:00: 00:00 mg total) Medic al 00 :00 by mouth Center daily for 90 days. DULoxetine 3-0 2023- No 30mg QD Take [address] [facility] (CYMBALTA) 9-15 -15 capsule [facility] 30 MG 00:00: 00:00 (30 mg Medical capsule 00 :00 total) by Center mouth daily. furosemide 2022-0 3- No 20mg QD Take [address] [facility] (LASIX) 20 -15 -15 tablet (20 [facility] MG tablet 00:00: 00:00 mg total) Me dical 00 :00 by mouth Center daily. lisinopriL 2022-0 3- No 5mg QD Take [address] [facility] (PRINIVIL,Z -15 -15 tablet (5 [facility] kes ESTRIL) 5 00:00: 00:00 mg total) Me dical MG tablet 00 :00 by mouth Center daily. aspirin 81 2022-0 2023- No 81mg QD Take [address] [facility] [address] MG EC 9-15 -15 tablet (81 [facility] tablet 00:00: 00:00 mg total) Medic al 00 :00 by mouth Center daily for 90 days. DULoxetine 2023-0 2023- No 30mg QD Take [address] [facility] (CYMBALTA) 9-15 09-15 capsule [facility] 30 MG 00:00: 00:00 (30 mg Medical capsule 00 :00 total) by Center mouth daily. furosemide 2023-0 2023- No 20mg QD Take [address] [facility] (LASIX) 20 9-15 09-15 tablet (20 [facility] MG tablet 00:00: 00:00 mg total) Me dical 00 :00 by mouth Center daily. lisinopriL 2022-0 2023- No 5mg QD Take [address] [facility] (PRINIVIL,Z 9-15 -15 tablet (5 [facility] k[facility] ESTRIL) 5 00:00: 00:00 mg total) Me dical MG tablet 00 :00 by mouth Center daily. aspirin 81 2022-0 2023- No 81mg QD Take [address] [facility] [address] MG EC 9-15 -15 tablet (81 [facility] tablet 00:00: 00:00 mg total) Medic al 00 :00 by mouth Center daily for 90 days. DULoxetine 2022-0 2023- No 30mg QD Take [address] [facility] (CYMBALTA) 9-15 -15 capsule [facility] 30 MG 00:00: 00:00 (30 mg Medical capsule 00 :00 total) by Center mouth daily. furosemide 2022-0 3- No 20mg QD Take [address] [facility] (LASIX) 20 -03 04-15 tablet (20 [facility] MG tablet 00:00: 00:00 mg total) Me dical 00 :00 by mouth Center daily. lisinopriL 2022-0 3- No 5mg QD Take [address] [facility] (PRINIVIL,Z -15 -15 tablet (5 [facility] kes ESTRIL) 5 00:00: 00:00 mg total) Me dical MG tablet 00 :00 by mouth Center daily. aspirin 81 2022-0 3- No 81mg QD Take [address] [facility] MG EC -15 -15 tablet (81 [facility] tablet 00:00: 00:00 mg total) Medic al 00 :00 by mouth Center daily for 90 days. DULoxetine 2022-0 3- No 30mg QD Take [address] [facility] (CYMBALTA) 9-15 -15 capsule [facility] 30 MG 00:00: 00:00 (30 mg Medical capsule 00 :00 total) by Center mouth daily. furosemide 2022-0 2023- No 20mg QD Take [address] [facility] (LASIX) 20 9-15 09-15 tablet (20 [facility] MG tablet 00:00: 00:00 mg total) Me dical 00 :00 by mouth Center daily. gabapentin 2022-0 3- No 300mg Q.[id number] Take [address] [facility] (NEURONTIN) 04-02 [id number] capsule [facility] 300 MG 00:00: 00:00 3D [...] Amount: 0.5 mg gabapentin 2022- No 300mg Q.[id number] Take [address] [facility] (NEURONTIN) 04-02 [id number] capsule [facility] 300 MG 00:00: 00:00 3D [...] days. Max Daily Amount: 4 tablets methocarbam 2022-0 2022- No 500mg Q.25D Take [address] oL 04-02 tablet [facility] (ROBAXIN) 00:00: 00:00 (500 mg Medi kwame 500 MG 00 :00 total) by Center tablet mouth 4 (four) times daily for 10 days. divalproex 2022-0 2022- No 500mg Q.5D Take [address] [facility] (DEPAKOTE) 04-02 tablet [facility] 500 MG EC 00:00: 00:00 (500 mg Medi kwame tablet 00 :00 total) by Center mouth 2 (two) times daily for 90 days. clonazePAM 2022-2022- No .25mg Take 0.[address] (KlonoPIN) 04-02 tablets [facility] 0.5 MG 00:00: 00:00 (0.25 mg Medica l tablet 00 :00 total) by Center mouth 2 (two) times daily as needed for Anxiety for up to 30 days. Max Daily Amount: 0.5 mg gabapentin 2022-2022- No 300mg Q.[id number] Take [address] [facility] (NEURONTIN) 04-02 [id number] capsule [facility] 300 MG 00:00: 00:00 3D (300 mg Medical capsule 00 :00 total) by Center mouth 3 (three) times daily for 90 days. HYDROcodone 2022-2022- No 1{tbl} Take [address] -acetaminop 04-02 tablet by [facility] (NORCO 00:00: 00:00 mouth Medic al 10-325) 00 :00 every 6 Center 10-325 mg (six) per tablet hours as needed for up to 10 days. Max Daily Amount: 4 tablets methocarbam 2022-0 2022- No 500mg Q.25D Take [address] oL 04-02 tablet [facility] (ROBAXIN) 00:00: 00:00 (500 mg Medi kwame 500 MG 00 :00 total) by Center tablet mouth 4 (four) times daily for 10 days. divalproex 2022-0 2022- No 500mg Q.5D Take [address] [facility] (DEPAKOTE) 04-02 tablet [facility] 500 MG EC 00:00: 00:00 (500 mg Medi kwame tablet 00 :00 total) by Center mouth 2 (two) times daily for 90 days. clonazePAM 2022-0 2022- No .25mg Take 0.[address] (KlonoPIN) 04-02 tablets [facility] 0.5 MG 00:00: 00:00 (0.25 mg Medica l tablet 00 :00 total) by Center mouth 2 (two) times daily as needed for Anxiety for up to 30 days. Max Daily Amount: 0.5 mg gabapentin 2022-2022- No 300mg Q.[id number] Take [address] [facility] [address] (NEURONTIN) 04-02 [id number] capsule [facility] 300 MG 00:00: 00:00 3D [...] (two) times daily for 90 days. clonazePAM 2022-0 2022- No .25mg Take 0.[address] [facility] (KlonoPIN) 04-02 tablets [facility] 0.5 MG 00:00: 00:00 (0.25 mg Medica l tablet 00 :00 total) by Center mouth 2 (two) times daily as needed for Anxiety for up to 30 days. Max Daily Amount: 0.5 mg gabapentin 2022-2022- No 300mg [id number] Take [address] [facility] (NEURONTIN) 04-02 [id number] capsule [facility] 300 MG 00:00: 00:00 3D (300 mg Medical capsule 00 :00 total) by Center mouth 3 (three) times daily for 90 days. HYDROcodone 2022-2022- No 1{tbl} Take [address] [facility] -acetaminop 04-02 tablet by [facility] (NORCO 00:00: 00:00 mouth Medic al 10-325) 00 :00 every 6 Center 10-325 mg (six) per tablet hours as needed for up to 10 days. Max Daily Amount: 4 tablets methocarbam 2022-2022- No 500mg Q.25D Take [address] [facility] oL 04-02 tablet [facility] (ROBAXIN) 00:00: 00:00 (500 mg Medi kwame 500 MG 00 :00 total) by Center tablet mouth 4 (four) times daily for 10 days. divalproex 2022-2022- No 500mg Q.5D Take [address] [facility] (DEPAKOTE) 04-02 tablet [facility] 500 MG EC 00:00: 00:00 (500 mg Medi kwame tablet 00 :00 total) by Center mouth 2 (two) times daily for 90 days. clonazePAM 2022-0 2022- No .25mg Take 0.[address] (KlonoPIN) 04-02 tablets [facility] 0.5 MG 00:00: 00:00 (0.25 mg Medica l tablet 00 :00 total) by Center mouth 2 (two) times daily as needed for Anxiety for up to 30 days. Max Daily Amount: 0.5 mg gabapentin 2022-2022- No 300mg [id number] Take [address] [facility] (NEURONTIN) 04-02 [id number] capsule [facility] 300 MG 00:00: 00:00 3D (300 mg Medical capsule 00 :00 total) by Center mouth 3 (three) times daily for 90 days. HYDROcodone 2022-2022- No 1{tbl} Take [address] [...] No 200mg 200 mg, IV [facility] (VIMPAT) 12-11-25 Piggyback, ity of 200 mg in 19:45: [...] 12/11/22 at 1315, MICHAEL iopamidol 2022- No [id number] 80mL 80 mL, U nivers (ISOVUE 12-11 05-25 Intravenou ity o f 370-500 mL) 16:30: 16:27 s, ONCE, 1 [place] injection 00 :00 dose, On Medica l 80 mL [facility] 12/11/22 at 1130, Routine nitroglycer 2022- No .5[in_u 0.5 Inch, Univers in (NITROL) 12-11 05-25 s] Transderma i ty of 2 % 15:30: 14:31 l (Apply [place] ointment 00 :00 To Skin), Medica l 0.5 Inch ONCE, 1 Branch dose, On [facility] 12/11/22 at 1030, MICHAEL aspirin 2022- No 324mg 324 mg, Unive rs chewable 12-11- Oral, ity of tablet 324 15:30: 14:30 ONCE, 1 [place] as mg 00 :00 dose, On [facility] 12/11/22 at 1030, Routine ondansetron 2022- No 4mg 4 mg, Slow Univers (ZOFRAN 12-11- IV Push, ity of (PF)) 15:30: 14:29 ONCE, 1 [place] injection 4 00 :00 dose, On Medi kwame mg [facility] 12/11/22 at 1030, MICHAEL LORazepam 2022- No 1mg 1 mg, Slow U nivers (ATIVAN) 12-11- IV Push, ity of injection 1 15:00: 14:57 ONCE, 1 [place] mg 00 :00 dose, On [facility] 12/11/22 at 1000, STAT Lacosamide Yes [id number] 100mg Take 1 Univers (VIMPAT) 5-25 tablet by ity of 100 mg 00:00: mouth in [place] tablet 00 the Medical morning Branch and 1 tablet in the evening. acetaminoph 2022- No 1{tbl} 1 tablet, Univers en-codeine 11-18- Oral, ity of (TYLENOL 05:30: 05:30 ONCE, 1 [place] #3) 300-30 00 :00 dose, On Medic al mg tablet 1 Thu11/18/22 Br anch tablet at 0030, MICHAEL methocarbam 2022- No 1000mg 1,000 mg, Univers oL 11-18-02 Oral, ity of (ROBAXIN) 05:30: 05:30 ONCE, 1 [place] tablet 00 :00 dose, On Medical 1,000 mg 11/18/22 Branc h at 0030, MICHAEL ondansetron 2022- No 4mg 4 mg, Slow Univers (ZOFRAN 11-18 IV Push, ity of (PF)) 04:45: 03:38 ONCE, 1 [place] injection 4 00 :00 dose, On Medi kwame mg [facility] 11/17/22 Branch at 2345, MICHAEL morpHINE (4 2022- No 4mg 4 mg, Slow Univers mg/mL) 11-18 IV Push, ity of injection 4 03:45: 03:38 ONCE, 1 [place] mg 00 :00 dose, On Medical 11/17/22 Branch at 2245, Routine methocarbam 2022- No 1000mg 1,000 mg, Univers oL 11-18 Intravenou ity of (ROBAXIN) 00:30: 23:47 s, ONCE, 1 [place] injection 00 :00 dose, On Medica l 1,000 mg [facility] 11/17/22 Bran h at 1930, MICHAEL methocarbam 2022-0 Yes [id number] 1000mg Take 2 Univers oL 500 mg 5-02 tablets by ity of tablet 00:00: mouth 4 (four) Medical times Branch daily as needed for Pain (scale 7-10). methocarbam 2022-0 Yes [id number] 1000mg Take 2 Univers oL 500 mg [...] Branch 11/17/22 at 1900, Routine morpHINE (4 2022-2022- No 4mg 4 mg, Slow Univers mg/mL) [...] 1-13 by mouth ity of 23:49: daily. [address] omega-3 2022-0 Yes 1g Take 1 g Univer s fatty 1-13 by mouth ity of acids-vitam 23:49: daily. [place] in E (FISH 34 Medical OIL) 1,000 Branch mg capsule loratadine 0 Yes Take by Univ ers (CLARITIN 1-13 mouth ity of LIQUI-GEL) 23:49: daily. [place] 10 mg 34 Medical capsule Branch ondansetron 2022-0 Yes 4mg Take 4 mg U nivers 4 mg tablet 1-13 by mouth ity of 23:49: every 8 [place] [address] (eight) Medical hours as Branch needed. pantoprazol 2022-0 Yes 40mg Take 40 mg Univers e 40 mg EC 1-13 by mouth ity o f tablet 23:49: daily. [address] MULTIVITAMI 0 Yes 1{tbl} Take 1 Tab Univers N ORAL 1-13 by mouth ity of 23:49: daily. [address] omega-3 2022-0 Yes 1g Take 1 g Univer s fatty 1-13 by mouth ity of acids-vitam 23:49: daily. [place] in [place] (FISH Medical OIL) 1,000 Branch mg capsule loratadine 0 Yes Take by Univ ers (CLARITIN 1-13 mouth ity of LIQUI-GEL) 23:49: daily. [place] 10 mg 34 Medical capsule Branch ondansetron 2022-0 Yes 4mg Take 4 mg U nivers 4 mg tablet 1-13 by mouth ity of 23:49: every 8 [place] [address] (eight) Medical hours as Branch needed. pantoprazol 2022-0 Yes 40mg Take 40 mg Univers e 40 mg EC 1-13 by mouth ity o f tablet 23:49: daily. [address] MULTIVITAMI 0 Yes 1{tbl} Take 1 Tab Univers N ORAL 1-13 by mouth ity of 23:49: daily. [address] omega-3 2022-0 Yes 1g Take 1 g Univer s fatty 1-13 by mouth ity of acids-vitam 23:49: daily. [place] in [place] (FISH 34 Medical OIL) 1,000 Branch mg capsule loratadine 2022-0 Yes Take by Univ ers (CLARITIN 1-13 mouth ity of LIQUI-GEL) 23:49: daily. [place] 10 mg 34 Medical capsule Branch ondansetron 2022-0 Yes 4mg Take 4 mg U nivers 4 mg tablet 1-13 by mouth ity of 23:49: every 8 [place] [address] (eight) Medical hours as Branch needed. pantoprazol 2022-0 Yes 40mg Take 40 mg Univers e 40 mg EC 1-13 by mouth ity o f tablet 23:49: daily. [address] MULTIVITAMI 0 Yes 1{tbl} Take 1 Tab Univers N ORAL 1-13 by mouth ity of 23:49: daily. [address] omega-3 2022-0 Yes 1g Take 1 g Univer s fatty 1-13 by mouth ity of acids-vitam 23:49: daily. [place] (FISH 34 Medical OIL) 1,000 Branch mg capsule loratadine 2022-0 Yes Take by Univ ers (CLARITIN 1-13 mouth ity of LIQUI-GEL) 23:49: daily. [place] 10 mg 34 Medical capsule Branch ondansetron 2022-0 Yes 4mg Take 4 mg U nivers 4 mg tablet 1-13 by mouth ity of 23:49: every 8 [place] [address] (eight) Medical hours as Branch needed. pantoprazol 2022-0 Yes 40mg Take 40 mg Univers e 40 mg EC 1-13 by mouth ity o f tablet 23:49: daily. [address] MULTIVITAMI 0 Yes 1{tbl} Take 1 Tab Univers N ORAL 1-13 by mouth ity of 23:49: daily. [address] omega-3 2022-0 Yes 1g Take 1 g Univer s fatty 1-13 by mouth ity of acids-vitam 23:49: daily. [place] in [place] (FISH 34 Medical OIL) 1,000 Branch mg capsule loratadine 2022-0 Yes Take by Univ ers (CLARITIN 1-13 mouth ity of LIQUI-GEL) 23:49: daily. [place] 10 mg 34 Medical capsule Branch ondansetron 2022-0 Yes 4mg Take 4 mg U nivers 4 mg tablet 1-13 by mouth ity of 23:49: every 8 [place] [address] (eight) Medical hours as Branch needed. pantoprazol 3-0 Yes 40mg Take 40 mg Univers e 40 mg EC 1-13 by mouth ity o f tablet 23:49: daily. [place] 34 [facility] Branch benzonatate 2022-0 Yes 100mg 100 mg, Un lois (TESSALON 13 Oral, Q8H, ity of PERLES) 20:00: First [...] Shortness of Breath sulfur 2022-0 2023- No [id number] 5mL 5 mL, Unive rs hexafluorid 08-0113 Intravenou i ty of e microsphr 17:00: 17:00 s, ONCE, 1 [place] (LUMASON) 00 :00 dose, On Medica l injection 5 Fri Branch mL 08/01/22 at 1100, Routine
clergy member approving Restricted medication : [place] pantoprazol 2022-0 Yes 40mg 40 mg, Univ ers e 13 Oral, ity of (PROTONIX) 15:00: DAILY, [place] EC tablet 00 First dose Medi kwame 40 mg on Thu Branch 08/01/22 at 0900, Until Discontinu ed, Routine aspirin 2022-0 Yes 81mg 81 mg, Univers chewable 08-01 Oral, ity of tablet 81 15:00: DAILY, [place] mg 00 First dose Medical on Fri Branch 08/01/22 at 0900, Until Discontinu ed, Routine amLODIPine 2022-0 Yes 10mg 10 mg, Unive rs (NORVASC) 08-01 Oral, ity of tablet 10 15:00: DAILY, [place] mg 00 First dose Medical on Thu [place] 08/01/22 at 0900, Until Discontinu ed, Routine levETIRAcet No 500mg 500 mg, U nivers am (KEPPRA) 08-01 Oral, BID, i ty of tablet 500 14:00: 23:56 First dose [place] mg 00 :35 on Thu Medical 08/01/22 at Branch 0800, Until Discontinu ed, Routine carvediloL 2022- No 6.25mg 6.25 mg, Univers (COREG) 08-01 Oral, BID ity of tablet 6.25 14:00: 17:29 MEALS, [place] mg 00 :13 First dose Medical on Thu [place] 08/01/22 at 0800, Until Discontinu ed, Routine levETIRAcet 2022- No 1000mg 1,000 mg, Univers am (KEPPRA) 08-01 IV ity of in NACL 06:45: 06:32 Piggyback, [place] as (ISO-OS) 00 :00 ONCE, 1 Medical 1,000 dose, On mg/100 mL Thu RTU 08/01/22 at 0045, Administer over 15 Minutes, 100 mL LORazepam Yes 1mg 1 mg, Slow Un lois (ATIVAN) 08-01 IV Push, ity of injection 1 05:52: Q4HPRN, [place] as mg 54 Starting Medical on [facility] [place] 07/31/22 at 2352, Until Discontinu ed, Routine, Seizures, Agitation, Anxiety, ETOH / Cocaine Withdrawl foLIC acid 0 Yes 1mg 1 mg, Univer s (FOLATE) 08-01 Oral, ity of tablet 1 mg 05:45: DAILY, [place] 00 First dose Medical on [facility] 07/31/22 at 2345, Until Discontinu ed, Routine thiamine Yes 100mg 100 mg, Unive rs (VITAMIN 08-01 Oral, ity of B1) tablet 05:45: DAILY, [place] 100 mg 00 First dose Medical on [facility] 07/31/22 at 2345, Until Discontinu ed, Routine LORazepam 2022- No .5mg 0.5 mg, Univ ers (ATIVAN) 08-01 Slow IV ity of injection 05:30: 05:29 Push, [place] 0.5 mg 00 :00 ONCE, 1 Medical dose, On Branch [facility] 07/31/22 at 2330, MICHAEL atorvastati 0 Yes 40mg 40 mg, Univ ers n (LIPITOR) 08-01 Oral, QHS, it y of tablet 40 03:00: First dose [place] mg 00 on [facility] 07/31/22 at Branch 2100, Until Discontinu ed, Routine diphenhydrA Yes 25mg 25 mg, Univ ers MINE 08-01 Oral, ity of (BENADRYL) 00:32: Q6HPRN, [place] tablet 25 02 Starting Medica l mg on [facility] 07/31/22 at 1832, Until Discontinu ed, [...] [place] mg 00 :00 dose, On Medical [facility] Branch 07/31/22 at 1700, Routine HYDROcodone 0 Yes 1{tbl} 1 tablet, Univers -acetaminop 07-31 Oral, ity of hen (NORCO) 22:01: Q6HPRN, [place] as 10-325 mg 36 Starting Medica l tablet 1 on [facility] tablet 07/31/22 at 1601, Until Discontinu ed, Routine, Pain (scale 7-10) HYDROcodone 2022-0 2022- No 1{tbl} 1 tablet, Univers -acetaminop 07-3114 Oral, ity of hen (NORCO 22:01: 22:00 Q6HPRN, [place] as 5) 5-325 mg 34 :34 Starting Medi kwame tablet 1 on [facility] tablet 07/31/22 at 1601, Until 08/02/22 at 1600, Routine, Pain (scale 4-6) acetaminoph Yes 650mg 650 mg, Un lois en 07-31 Oral, ity of (TYLENOL) 22:01: Q6HPRN, [place] tablet 650 33 Starting Medic al mg on Ar[facility] Branch 07/31/22 at 1601, Until Discontinu ed, Routine, Pain (scale 1-3) ketorolac 2022- No 15mg 15 mg, Unive [...] 40 mg Univers e 40 mg EC 1-12 by mouth ity o f tablet 17:15: daily. [place] 40 [facility] MULTIVITAMI Yes 1{tbl} Take 1 Tab Univers N ORAL 1-12 by mouth ity of 15:50: daily. [place] 57 [facility] Branch loratadine Yes Take by Univ ers (CLARITIN 1-12 mouth ity of LIQUI-GEL) 15:50: daily. [place] 10 mg 57 Medical capsule [place] ondansetron Yes 4mg Take 4 mg U nivers 4 mg tablet 1-12 by mouth ity of 15:50: every 8 [place] 57 (eight) Medical hours as Branch needed. omega-3 Yes 1g Take 1 g Univer s fatty 1-12 by mouth ity of acids-vitam 15:21: daily. [place] in [place] (FISH 27 Medical OIL) 1,000 Branch mg capsule TAKE ONE No (1) 1-09 TABLET(S) 00:00: BY MOUTH 00 THREE TIMES A DAY NEEDED. Methylpredn 2021-07- No [id number] 4mg Take 1 Univers isolone 4 0-22 10-24 tablet ity of mg tablet 00:00: 04:59 through [place] 00 :00 enteral Medical tube in [place] the morning for 1 dose. Methylpredn 2021-07- No [id number] 4mg Take 1 [facility] isolone 4 0-21 10-23 tablet ity of mg tablet 00:00: 04:59 through [place] 00 :00 enteral Medical tube every Branch 12 (twelve) hours for 2 doses. MULTIVITAMI 2021-07 Yes 1{tbl} Take 1 Tab Univers N ORAL 0-20 by mouth ity of 14:44: daily. [place] 48 [facility] omega-3 2021-07 Yes 1g Take 1 g Univer s fatty 0-20 by mouth ity of acids-vitam 14:44: daily. [place] in [place] (FISH 48 Medical OIL) 1,000 Branch mg capsule loratadine 2021-07 Yes Take by Univ ers (CLARITIN 0-20 mouth ity of LIQUI-GEL) 14:44: daily. [place] 10 mg 48 Medical capsule [place] ondansetron 2021-07 Yes 4mg Take 4 mg U nivers (ZOFRAN) 4 0-20 by mouth ity o f mg tablet 14:44: every 8 [place] 48 (eight) Medical hours as Branch needed. [...] (after Medical last Branch modificati on) on Thu05/08/22 at 0800, Until Discontinu ed, Routine Methylpredn 2021-07- No 4mg 4 mg, Univ ers isolone 0-20 10-21 Oral, Q8H ity of (MEDROL) 08:50: 08:59 TAPER, 3 [place] tablet 4 mg 10 :00 doses, Medica l First dose Branch on [facility] 05/08/22 at 0400, Last dose on Thu05/08/22 at 2000, Routine acetaminoph 2021-07 Yes 1{tbl} 1 tablet, Univers en-codeine 0-20 Oral, ity of (TYLENOL 04:07: Q4HPRN, [place] #3) 300-30 01 Starting Medic al mg [...] Discontinu ed, Routine, Anxiety cyclobenzap 2021-07 Yes [id number] 5mg Take 1 Univers rine 5 mg 0-20 tablet by ity o f tablet 00:00: mouth in [place] [address] the [facility] and 1 tablet at noon and 1 tablet in the evening. cyclobenzap 2021-07 Yes [id number] 5mg Take 1 Univers rine 5 mg 0-20 tablet by ity o f tablet 00:00: mouth in [address] and 1 tablet at noon and 1 tablet in the evening. cyclobenzap 2021-07 Yes [id number] 5mg Take 1 Univers rine 5 mg 0-20 tablet by ity o f tablet 00:00: mouth in [address] and 1 tablet at noon and 1 tablet in the evening. cyclobenzap 2021-07 Yes [id number] 5mg Take 1 Univers rine 5 mg 0-20 tablet by ity o f tablet 00:00: mouth in [address] and 1 tablet at noon and 1 tablet in the evening. cyclobenzap 2021-07 Yes [id number] 5mg Take 1 Univers rine 5 mg 0-20 tablet by ity o f tablet 00:00: mouth in [address] and 1 tablet at noon and 1 tablet in the evening. cyclobenzap 2021-07 Yes [id number] 5mg Take 1 Univers rine 5 mg 0-20 tablet by ity o f tablet 00:00: mouth in [address] and 1 tablet at noon and 1 tablet in the evening. cyclobenzap 2021-07 Yes [id number] 5mg Take 1 Univers rine 5 mg 0-20 tablet by ity o f tablet 00:00: mouth in [address] and 1 tablet at noon and 1 tablet in the evening. DULoxetine 2021-07- No [id number] 60mg Take 2 Univers (CYMBALTA) 0-20 11-20 capsules ity of 30 mg 00:00: 05:59 by mouth [place] capsule 00 :00 in the [facility] for 30 days. divalproex 2021-07- No [id number] 750mg Take 3 Univers (DEPAKOTE) 0-20 11-20 tablets by it y of 250 mg EC 00:00: 05:59 mouth [place] tablet 00 :00 every 8 Medical (eight) Branch hours for 30 days. LORazepam 1 2021-07- No [id number] 1mg Take 1 Univers mg tablet 0-20 [...] Indication s: acute pain Methylpredn 2021-07- No [id number] 4mg Take 1 Univers isolone 4 0-20 -22 tablet by ity of mg tablet 00:00: 04:59 mouth [place] 00 :00 every 8 Medical (eight) Branch hours for 3 doses. divalproex 2021-07- No 750mg 750 mg, Un lois (DEPAKOTE) 0-19 10-20 Oral, BID, it y of EC tablet 01:00: 09:40 First dose [place] 750 mg 00 :23 on [facility] 05/06/22 Branch at 2000, Until Discontinu ed, Routine levETIRAcet 2021-07- No 1500mg 1,500 mg, Univers am (KEPPRA) 0-18 10-18 Oral, BID, i ty of tablet 13:00: 18:38 First dose [place] 1,500 mg 00 :22 (after Medical last Branch modificati on) on [facility] 05/06/22 at 0800, Until Discontinu ed, Routine levETIRAcet 2021-07 No 1000mg 1,000 mg, Univers am (KEPPRA) 0-18 10-18 IV ity of in NACL 05:00: 05:46 Piggyback, [place] as (ISO-OS) 00 :00 ONCE, 1 Medical 1,000 dose, On Branch mg/100 mL [facility] RTU 05/06/22 at 0000, Administer over 15 Minutes, 100 mL methocarbam 2021-07 No 500mg 500 mg, U nivers oL 0-18 -18 Oral, QID, ity of (ROBAXIN) 02:15: 23:21 First dose [place] tablet 500 00 :42 on [facility] Medical mg 05/05/22 Branch at 2115, Until Discontinu ed, Routine LORazepam 2021-07 No 2mg 2 mg, Univer s (ATIVAN) 018 05-06 Oral, ity of tablet 2 mg 01:30: 01:03 ONCE, 1 [place] 00 :00 dose, On Medical [facility] 05/05/22 at 2030, Routine levETIRAcet 2021-07- No 1000mg 1,000 mg, Univers am (KEPPRA) 005-06 Oral, BID, i ty of tablet 01:00: 04:48 First dose [place] 1,000 mg 00 :06 on [facility] 05/05/22 Branch at 2000, Until Discontinu ed, Routine enoxaparin 2021-07 Yes 40mg 40 mg, Unive rs (LOVENOX) 018 Subcutaneo ity of injection 00:15: us, Q24H, [place] as 40 mg 00 First dose Medical on [facility] 05/05/22 at 1915, Until Discontinu ed, Routine levETIRAcet 2021-07 No 1000mg 1,000 mg, Univers am (KEPPRA) 0- 10 IV ity of in NACL 19:45: 20:05 Piggyback, [place] as (ISO-OS) 00 :00 ONCE, 1 Medical 1,000 dose, On Branch mg/100 mL [facility] RTU 05/05/22 at 1445, Administer over 15 Minutes, 100 mL clonazePAM 2021-07 Yes .5mg 0.5 mg, Univ ers (KLONOPIN) 0-17 Oral, BID, ity of tablet 0.5 19:30: First dose [place] mg 00 on [facility] 05/05/22 Branch at 1430, Until Discontinu ed, Routine ibuprofen 2021-07 Yes 600mg 600 mg, Univ ers (IBU) 0-17 Oral, TID ity of tablet 600 19:30: MEALS, [place] mg 00 First dose Medical on [facility] 05/05/22 at 1430, Until Discontinu ed, Routine gabapentin 2021-07 Yes 300mg 300 mg, Uni vers (NEURONTIN) 0-17 Oral, TID, it y of capsule 300 19:30: First dose [place] mg 00 on [facility] 05/05/22 Branch at 1430, Until Discontinu ed, Routine cyclobenzap 2021-07 Yes 5mg 5 mg, Unive rs rine 0-17 Oral, TID, ity of (FLEXERIL) 19:30: First dose [place] tablet 5 mg 00 on [facility] Medica l 05/05/22 Branch at 1430, Until Discontinu ed, Routine acetaminoph 2021-07 Yes 1000mg 1,000 mg, Univers en 0-17 Oral, Q8H, ity of (TYLENOL) 19:30: First dose [place] tablet 00 on [facility] 1,000 mg 05/05/22 Branch at 1430, Until Discontinu ed, Routine pantoprazol 2021-07 Yes 40mg 40 mg, Univ ers e 0-17 Oral, ity of (PROTONIX) 14:00: DAILY, [place] EC tablet 00 First dose Medi kwame 40 mg on [facility] 05/05/22 at 0900, Until Discontinu ed, Routine docusate 2021-07 Yes 100mg 100 mg, Unive rs (COLACE) 0-17 Oral, ity of capsule 100 14:00: DAILY, [place] mg 00 First dose Medical on [facility] 05/05/22 at 0900, Until Discontinu ed, Routine HYDROcodone 2021-07- No 1{tbl} 1 tablet, Univers -acetaminop 0-17 10-17 Oral, ity of hen (NORCO) 10:32: 19:18 Q6HPRN, [place] 10-325 mg 02 :52 Starting Medica l tablet 1 on [facility] tablet 05/05/22 at 0532, Until [facility] 05/05/22 at 1418, Routine, Pain (scale 7-10) ondansetron 2021-07 Yes 4mg 4 mg, Slow Univers (ZOFRAN 0-17 IV Push, ity of (PF)) 06:49: Q6HPRN, [place] injection 4 57 Starting Medi kwame mg on [facility] 05/05/22 at 0149, Until Discontinu ed, Routine, Nausea and Vomiting (N/V) HYDROcodone 2021-07- No 1{tbl} 1 tablet, Univers -acetaminop 05-05 Oral, ity of hen (NORCO 06:49: 10:32 Q6HPRN, [place] as 5) 5-325 mg 41 :14 Starting Medi kwame tablet 1 on [facility] tablet 05/05/22 at 0149, Until [facility] 05/05/22 at 0532, Routine, Pain (scale 7-10) acetaminoph 2021-07- No 325mg 325 mg, U nivers en 05-05 Oral, ity of (TYLENOL) 06:49: 19:18 Q4HPRN, [place] tablet 325 39 :52 Starting Medic al mg on [facility] Branch 05/05/22 at 0149, Until [facility] 05/05/22 at 1418, Routine, Pain (scale 4-6) [...] at 2300, Routine aspirin 81 2021-0 Yes [id number] 81mg Take 1 U nivers mg chewable 9-28 tablet by ity of tablet 00:00: mouth in [place] [address] the Medical morning. [place] aspirin 81 2021-0 Yes [id number] 81mg Take 1 U nivers mg chewable 9-28 tablet by ity of tablet 00:00: mouth in [place] [address] the Medical morning. [place] aspirin 81 2021-0 Yes [id number] 81mg Take 1 U nivers mg chewable 9-28 tablet by ity of tablet 00:00: mouth in [place] [address] the Medical morning. [place] aspirin 81 2021-0 Yes [id number] 81mg Take 1 U nivers mg chewable 9-28 tablet by ity of tablet 00:00: mouth in [place] [address] the Medical morning. Branch aspirin 81 Yes [id number] 81mg Take 1 U nivers mg chewable 9-28 tablet by ity of tablet 00:00: mouth in [place] 00 the Medical morning. Branch aspirin 81 0 Yes [id number] 81mg Take 1 U nivers mg chewable 9-28 tablet by ity of tablet 00:00: mouth in [place] 00 the Medical morning. Branch aspirin 81 Yes [id number] 81mg Take 1 U nivers mg chewable 9-28 tablet by ity of tablet 00:00: mouth in [place] 00 the Medical morning. Branch aspirin 81 0 Yes [id number] 81mg Take 1 U nivers mg chewable 9-28 tablet by ity of tablet 00:00: mouth in [place] 00 the Medical morning. Branch MULTIVITAMI Yes 1{tbl} Take 1 Tab Univers N ORAL 04-15 by mouth ity of 17:39: daily. [place] 14 Medical Branch omega-3 Yes 1g Take 1 g Univer s fatty 04-15 by mouth ity of acids-vitam 17:39: daily. [place] in [place] (FISH 14 Medical OIL) 1,000 Branch mg capsule loratadine Yes Take by Univ ers (CLARITIN 04-15 mouth ity of LIQUI-GEL) 17:39: daily. [place] 10 mg 14 Medical capsule Branch ondansetron Yes 4mg Take 4 mg U nivers (ZOFRAN) 4 04-15 by mouth ity o f mg tablet 17:39: every 8 [place] 14 (eight) Medical hours as Branch needed. pantoprazol Yes 40mg Take 40 mg Univers e - by mouth ity of (PROTONIX) 17:39: daily. [place] 40 mg EC 14 Medical tablet Branch [...] Oral, ity of (TYLENOL 05:39: 14:39 Q6HPRN, [place] #4) 300-60 23 :42 Starting Medic al mg tablet 1 on Branch tablet 04/15/22 at 0039, Until 04/15/22 at 0939, Routine, Pain (scale 4-6), Pain (scale 1-3) LORazepam 2021- No 2mg 2 mg, Univer s (ATIVAN) 04-15 Oral, ity of tablet 2 mg 03:30: 10:27 ONCE, 1 [place] 00 :00 dose, On Medical [facility] Branch 04/14/22 at 2230, Routine levETIRAcet Yes 1000mg 1,000 mg, Univers am (KEPPRA) 04-15 Oral, BID, it y of tablet 02:45: First dose [place] 1,000 mg 00 (after Medical last Branch modificati on) on [facility] 04/14/22 at 2145, Until Discontinu ed, Routine ketorolac 2021- No 15mg 15 mg, Unive rs (TORADOL) 04-15 Slow IV ity of injection 02:13: 02:22 Push, [place] 15 mg 00 :00 ONCE, 1 Medical dose, On Branch [facility] 04/14/22 at 2115, Routine levETIRAcet Yes [id number] 1000mg Take 1 Univers am 1,000 mg 9-27 tablet by ity of tablet 00:00: mouth in [place] 00 the Medical morning Branch and 1 tablet in the evening. atorvastati Yes [id number] 40mg Take 1 Univers n 40 mg 9-27 tablet by ity of tablet 00:00: mouth at [place] [address] bedtime. Medical Branch atorvastati 0 Yes [id number] 40mg Take 1 Univers n 40 mg 9-27 tablet by ity of tablet 00:00: mouth at [place] [address] bedtime. Medical Branch atorvastati Yes [id number] 40mg Take 1 Univers n 40 mg 9-27 tablet by ity of tablet 00:00: mouth at [place] [address] bedtime. Medical Branch atorvastati Yes [id number] 40mg Take 1 Univers n 40 mg 9-27 tablet by ity of tablet 00:00: mouth at [place] [address] bedtime. Medical Branch atorvastati Yes [id number] 40mg Take 1 Univers n 40 mg 9-27 tablet by ity of tablet 00:00: mouth at [place] [address] bedtime. Medical Branch atorvastati Yes [id number] 40mg Take 1 Univers n 40 mg 9-27 tablet by ity of tablet 00:00: mouth at [place] [address] bedtime. Medical Branch atorvastati Yes [id number] 40mg Take 1 Univers n 40 mg 9-27 tablet by ity of tablet 00:00: mouth at [place] [address] bedtime. Medical Branch atorvastati Yes [id number] 40mg Take 1 Univers n 40 mg 9-27 tablet by ity of tablet 00:00: mouth at [place] [address] bedtime. Medical Branch levETIRAcet 2021- No [id number] 1000mg Take 1 Univers am 1,000 mg 9-27 10-20 tablet by it y of tablet 00:00: 00:00 mouth in [place] 00 :00 the Medical morning Branch and 1 tablet in the evening. lidocaine 5 2021- No [id number] 1{patch Apply 1 Univers % (700 04-15 [...] 12 Medical patch 1 Hours, Branch Patch [id number], Starting on Thu04/14/22 at 1645, Until Discontinu ed, Routine, Localized pain aspirin 2022-0 Yes 81mg 81 mg, Univers chewable 04-14 Oral, ity of tablet 81 21:30: DAILY, [place] mg 00 First dose Medical on Mon Branch 04/14/22 at 1630, Until Discontinu ed, [...] :41 Starting Medica l tablet 1 on [facility] tablet 04/14/22 at 1629, Until 04/15/22 at 0039, Routine, Pain (scale 7-10), Pain (scale 4-6) sulfur 2021- No [id number] 5mL 5 mL, Univ ers hexafluorid 04-14 Intravenou i ty of e microsphr 16:45: 16:45 s, ONCE, 1 [place] (LUMASON) 00 :00 dose, On Medica l injection 5 [facility] Branch mL 04/14/22 at 1145, Routine
clergy member approving Restricted medication : [employer] clopidogreL Yes 75mg 75 mg, Univ ers (PLAVIX) 75 04-14 Oral, ity of mg tablet 14:00: DAILY, [place] 75 mg 00 First dose Medical on Mon Branch 04/14/22 at 0900, Until Discontinu ed, Routine pantoprazol Yes 40mg 40 mg, Univ ers e 04-14 Oral, ity of (PROTONIX) 14:00: DAILY, [place] EC tablet 00 First dose Medi kwame 40 mg on Mon Branch 04/14/22 at 0900, Until Discontinu ed, Routine atorvastati Yes 40mg 40 mg, Univ ers n (LIPITOR) 04-14 Oral, QHS, it y of tablet 40 02:00: First dose [place] mg 00 on [facility] 04/13/22 at Branch 2100, Until Discontinu ed, Routine LORazepam 2021- No 1mg 1 mg, Univer s (ATIVAN) 04-14 Oral, ity of tablet 1 mg 01:30: 01:45 ONCE, 1 [place] 00 :00 dose, On Medical [facility] 04/13/22 at 2030, Routine methocarbam Yes 500mg 500 mg, Un lois oL 04-14 Oral, QID, ity of (ROBAXIN) 01:00: First dose [place] tablet 500 00 on [facility] mg 04/13/22 at Branch 2000, Until Discontinu ed, Routine heparin Yes 5000U 5,000 Univers (porcine) 04-14 Units, ity of injection 01:00: Subcutaneo [place] 5,000 Units 00 us, Q12H, Med ical First dose Branch on [place] 04/13/22 at 2000, Until Discontinu ed, Routine acetaminoph 2021- No 650mg 650 mg, U nivers en 04-14 Oral, ity of (TYLENOL) 00:23: 21:29 Q6HPRN, [place] tablet 650 25 :42 Starting Medic al mg on [facility] 04/13/22 at 1923, Until 04/14/22 at 1629, Routine, Pain (scale 1-3), Pain (scale 4-6), Temp > 38.5 C, Temp > 37.5 C lidocaine 2021- No 1{patch 1 Patch, Univers (LIDODERM) 04-14 } Topical, ity of 5 % (700 00:22: 13:51 Administer [place] mg/patch) 00 :00 over 12 Medical patch 1 Hours, [place] Patch ONCE, 1 dose, On [place] 04/13/22 at 1930, Routine FENTanyl PF 2021- No 50ug 50 mcg, Un lois (SUBLIMAZE 04-13 Slow IV ity o f (PF)) 20:30: 19:22 Push, [place] injection 00 :00 ONCE, 1 Medical 50 mcg dose, On [facility] 04/13/22 at 1530, Routine aspirin No 650mg 650 mg, Unive rs chewable 04-13 Oral, ity of tablet 650 20:15: 20:15 ONCE, 1 [place] mg 00 :00 dose, On Medical [place] [facility] 04/13/22 at 1515, Routine clopidogreL 2021- No 300mg 300 mg, U nivers (PLAVIX) 04-13 Oral, ity of 300 mg 20:00: 19:15 ONCE, 1 [place] tablet 300 00 :00 dose, On Medic al mg [place] [facility] 04/13/22 at 1500, Routine ondansetron 2021- No 4mg 4 mg, Slow Univers (ZOFRAN 04-13 IV Push, ity of (PF)) 19:30: 19:22 ONCE, 1 [place] injection 4 00 :00 dose, On Medi kwame mg [facility] 04/13/22 at 1430, MICHAEL iopamidol 2021- No [id number] 100mL 100 mL, Univers (ISOVUE 04-13 Intravenou ity o f 370-500 mL) 18:31: 18:32 s, ONCE, 1 [place] injection 00 :00 dose, On Medica l 100 mL [facility] 04/13/22 at 1345, Routine NaCl 0.9% Yes 5mL 5 mL, Slow Un lois (NS) 04-13 IV Push, ity of injection 5 18:14: PRN - SEE [place] mL 11 [facility] Medical NS, Branch Starting on [place] 04/13/22 at 1314, Until Discontinu ed, 10 mL aspirin Yes 324mg 324 mg, Univer s chewable 11-24 Oral, ity of tablet 324 14:00: DAILY, [place] mg 00 First dose Medical on [place] [facility] 11/24/21 at 0900, Until Discontinu ed, [...] 2021-0 No Unknown 3-16 00:00: 00 Dose 2022-0 [...] 800 mg 2-02 tablet 00:00: 00 ibuprofen 1-1 No 1mg 800 mg 2-02 tablet 00:00: 00 levetiracet 1-1 No 1mg am 500 mg 1-30 tablet 00:00: 00 Dose 1-1 No Unknown 1-30 00:00: 00 levetiracet 2020-1 No 1mg am 500 mg 1-30 tablet 00:00: 00 Dose 2021-1 No Unknown 1-30 00:00: 00 levoFLOXaci 2020- [...] dose, Sat Medi kwame mg 03/16/21 at [place] [id number], MICHAEL
Re ason for Anti-Infec tive: Documented [...] mg 03/16/21 at Branch 2100, MICHAEL morpHINE 2020-2020- No 4mg 4 mg, Slow Un lois [...] mg 03/16/21 at Branch 2100, MICHAEL ipratropium 2020-0 2020- No 3mL 3 mL, [...] IV ity of succ 01:57: 02:11 Push, [place] (SOLU-MEDRO 00 :00 ONCE, 1 Medic al [...] IV ity of succ 01:57: 02:11 Push, [place] (SOLU-MEDRO 00 :00 ONCE, 1 Medic [...] nebulizer solution 3 mL levoFLOXaci 2020- No [id number] 500mg Take 1 Univers n 500 mg 03-17 tablet by ity o f tablet 00:00: 04:59 mouth [place] 00 :00 daily for Medical 6 days. Branch levoFLOXaci 2020- No [id number] 500mg Take 1 Univers n 500 mg 03-17 tablet by ity o f tablet 00:00: 04:59 mouth [place] 00 :00 daily for Medical 6 days. Branch levoFLOXaci 2020- No [id number] 500mg Take 1 Univers n 500 mg 03-17 tablet by ity o f tablet 00:00: 04:59 mouth [place] 00 :00 daily for Medical 6 days. Branch levoFLOXaci 2020- No [id number] 500mg Take 1 Univers n 500 mg 03-17 tablet by ity o f tablet 00:00: 04:59 mouth [place] 00 :00 daily for Medical 6 days. Branch predniSONE 2020-2020- No [id number] 30mg Take 3 Univers 10 mg 03-17 tablets by ity of tablet 00:00: 04:59 mouth [place] 00 :00 daily for Medical 4 days. Branch predniSONE 2020-2020- No [id number] 30mg Take 3 Univers 10 mg 03-17 tablets by ity of tablet 00:00: 04:59 mouth [place] 00 :00 daily for Medical 4 days. Branch predniSONE 2020- No [id number] 30mg Take 3 Univers 10 mg 03-17- tablets by ity of tablet 00:00: 04:59 mouth [place] 00 :00 daily for Medical 4 days. Branch predniSONE 2020- No [id number] 30mg Take 3 Univers 10 mg 03-17- tablets by ity of tablet 00:00: 04:59 mouth [place] 00 :00 daily for Medical 4 days. Branch albuterol 2020- No [id number] 4{puff} 4 Puff, Univers (VENTOLIN) 03-15 Inhalation it y of inhaler 4 01:45: 00:44 , ONCE, 1 [place] Puff 00 :00 dose, [facility] 03/14/21 at [place] 2044, Routine dexamethaso 2020- No [id number] 10mg 10 mg, Univers ne 03-15 Intramuscu ity of (DECADRON) 01:45: 00:45 lar, ONCE, [place] injection 00 :00 1 dose, Medical 10 mg [facility] 03/14/21 at 5, Routine albuterol Yes [id number] 2.5mg Inhale 3 Univers 2.5 mg /3 8-27 mL every 4 ity of mL (0.083 00:00: (four) [place] %) 00 hours as Medical nebulizer needed for Bran ch solution Wheezing or Shortness of Breath. albuterol Yes [id number] 2.5mg Inhale 3 Univers 2.5 mg /3 8-27 mL every 4 ity of mL (0.083 00:00: (four) [place] %) 00 hours as Medical nebulizer needed for Bran ch solution Wheezing or Shortness of Breath. albuterol Yes [id number] 2.5mg Inhale 3 Univers 2.5 mg /3 8-27 mL every 4 ity of mL (0.083 00:00: (four) [place] %) 00 hours as Medical nebulizer needed for Bran ch solution Wheezing or Shortness of Breath. albuterol Yes [id number] 2.5mg Inhale 3 Univers 2.5 mg /3 8-27 mL every 4 ity of mL (0.083 00:00: (four) [place] %) 00 hours as Medical nebulizer needed for Bran ch solution Wheezing or Shortness of Breath. albuterol 2020-0 Yes [id number] 2.5mg Inhale 3 Univers 2.5 mg /3 8-27 mL every 4 ity of mL (0.083 00:00: (four) [place] %) 00 hours as Medical nebulizer needed for Bran ch solution Wheezing or Shortness of Breath. albuterol 2020-0 Yes [id number] 2.5mg Inhale 3 Univers 2.5 mg /3 8-27 mL every 4 ity of mL (0.083 00:00: (four) [place] %) 00 hours as Medical nebulizer needed for Bran ch solution Wheezing or Shortness of Breath. albuterol 2020-0 Yes [id number] 2.5mg Inhale 3 Univers 2.5 mg /3 8-27 mL every 4 ity of mL (0.083 00:00: ([facility]) [place] %) 00 hours as Medical nebulizer needed for Bran ch solution Wheezing or Shortness of Breath. albuterol 2020-0 Yes [id number] 2.5mg Inhale 3 Univers 2.5 mg /3 8-27 mL every 4 ity of mL (0.083 00:00: ([facility]) [place] %) 00 hours as Medical nebulizer needed for Bran ch solution Wheezing or Shortness of Breath. albuterol 2020-0 Yes [id number] 2.5mg Inhale 3 Univers 2.5 mg /3 8-27 mL every 4 ity of mL (0.083 00:00: ([facility]) [place] %) 00 hours as Medical nebulizer needed for Bran ch solution Wheezing or Shortness of Breath. albuterol 2020-0 Yes [id number] 2.5mg Inhale 3 Univers 2.5 mg /3 8-27 mL every 4 ity of mL (0.083 00:00: (four) [place] %) 00 hours as Medical nebulizer needed for Bran ch solution Wheezing or Shortness of Breath. albuterol 2020-0 Yes [id number] 2.5mg Inhale 3 Univers 2.5 mg /3 8-27 mL every 4 ity of mL (0.083 00:00: (four) [place] %) 00 hours as Medical nebulizer needed for Bran ch solution Wheezing or Shortness of Breath. albuterol 2020-0 Yes [id number] 2.5mg Inhale 3 Univers 2.5 mg /3 8-27 mL every 4 ity of mL (0.083 00:00: (four) [place] %) 00 hours as Medical nebulizer needed for Bran ch solution Wheezing or Shortness of Breath. albuterol 2020-0 Yes [id number] 2.5mg Inhale 3 Univers 2.5 mg /3 8-27 mL every 4 ity of mL (0.083 00:00: (four) [place] %) 00 hours as Medical nebulizer needed for Bran ch solution Wheezing or Shortness of Breath. albuterol 2020-0 Yes [id number] 2.5mg Inhale 3 Univers 2.5 mg /3 8-27 mL every 4 ity of mL (0.083 00:00: (four) [place] %) 00 hours as Medical nebulizer needed for Bran ch solution Wheezing or Shortness of Breath. albuterol 2020-0 Yes [id number] 2.5mg Inhale 3 Univers 2.5 mg /3 8-27 mL every 4 ity of mL (0.083 00:00: (four) [place] %) 00 hours as Medical nebulizer needed for Bran ch solution Wheezing or Shortness of Breath. albuterol 2020-0 Yes [id number] 2.5mg Inhale 3 Univers 2.5 mg /3 8-27 mL every 4 ity of mL (0.083 00:00: (four) [place] %) 00 hours as Medical nebulizer needed for Bran ch solution Wheezing or Shortness of Breath. albuterol 2020-0 Yes [id number] 2.5mg Inhale 3 Univers 2.5 mg /3 8-27 mL every 4 ity of mL (0.083 00:00: (four) [place] %) 00 hours as Medical nebulizer needed for Bran ch solution Wheezing or Shortness of Breath. albuterol 2020-0 Yes [id number] 2.5mg Inhale 3 Univers 2.5 mg /3 8-27 mL every 4 ity of mL (0.083 00:00: (four) [place] %) 00 hours as Medical nebulizer needed for Bran ch solution Wheezing or Shortness of Breath. levETIRAcet 2020- No 1000mg 1,000 mg, Univers am (KEPPRA) 02-19- IV ity of in NACL 20:15: 19:30 [place], [place] (ISO-OS) 00 :00 ONCE, 1 Medical 1,000 dose, Tue Branch mg/100 mL 02/19/21 at RTU 1515, Administer over 15 Minutes, 100 mL levetiracet Yes Take by Uni vers am (KEPPRA 8-03 mouth. ity of ORAL) 19:45: [address] levetiracet Yes Take by Uni vers am (KEPPRA 8-03 mouth. ity of ORAL) 19:45: [address] levetiracet Yes Take by Uni vers am (KEPPRA 8-03 mouth. ity of ORAL) 19:45: [address] levetiracet Yes Take by Uni vers am (KEPPRA 8-03 mouth. ity of ORAL) 19:45: [address] levetiracet Yes Take by Uni vers am (KEPPRA 8-03 mouth. ity of ORAL) 19:45: [address] levetiracet Yes Take by Uni vers am (KEPPRA 8-03 mouth. ity of ORAL) 19:45: [address] LISINOPRIL- 2020- No Take by Un lois HYDROCHLORO 02-19 mouth. ity o f THIAZIDE 19:41: 00:00 [place] ORAL 15 :00 [facility] dicyclomine 2020- No 20mg 20 mg, Uni vers (BENTYL) 02-19 Intramuscu ity of injection 19:15: 19:04 lar, ONCE, [place] 20 mg 00 :00 1 dose, Medical 02/19/21 Branch at 1415, Routine proMETHazin 2020- No 25mg 25 mg, IV Univers e 02-19- Piggyback, ity of (PHENERGAN) 19:15: 19:03 ONCE, 1 [place] 25 mg in 00 :00 dose, Tue Medica l NaCl 0.9% 02/19/21 at [facility] h (NS) 50 mL 1415, 50 [...] at Branch 1200, MICHAEL iopamidol 2020- No [id number] 100mL 100 mL, Univers (ISOVUE 02-19 Intravenou ity o f 370-500 mL) 16:35: 16:45 s, ONCE, 1 [place] injection 00 :00 dose, Tue Medic al 100 mL 02/19/21 at Branch 1145, Routine levetiracet Yes Take by Uni vers am (KEPPRA 8-03 mouth. ity of ORAL) 14:45: [address] levetiracet Yes Take by Uni vers am (KEPPRA 8-03 mouth. ity of ORAL) 14:45: [address] levetiracet Yes Take by Uni vers am (KEPPRA 8-03 mouth. ity of ORAL) 14:45: [address] levetiracet 0 Yes Take by Uni vers am (KEPPRA 8-03 mouth. ity of ORAL) 14:45: [address] levetiracet Yes Take by Uni vers am (KEPPRA 8-03 mouth. ity of ORAL) 14:45: [place] 33 Medical Branch proMETHazin 2020-0 Yes [id number] 25mg Take 1 Univers e 25 mg 8-03 tablet by ity of tablet 00:00: mouth [place] 00 every 6 Medical (six) Branch hours as needed for Nausea and Vomiting (N/V). dicyclomine 2020-0 Yes [id number] 20mg Take 1 Univers 20 mg 8-03 tablet by ity of tablet 00:00: mouth 4 [place] 00 (four) Medical times Branch daily as needed for Abdominal pain. proMETHazin 2020-0 Yes [id number] 25mg Take 1 Univers e 25 mg 8-03 tablet by ity of tablet 00:00: mouth [place] 00 every 6 Medical (six) Branch hours as needed for Nausea and Vomiting (N/V). dicyclomine 2020-0 Yes [id number] 20mg Take 1 Univers 20 mg 8-03 tablet by ity of tablet 00:00: mouth 4 [place] (four) Medical times Branch daily as needed for Abdominal pain. proMETHazin 2020-0 Yes [id number] 25mg Take 1 Univers e 25 mg 8-03 tablet by ity of tablet 00:00: mouth [place] 00 every 6 Medical (six) Branch hours as needed for Nausea and Vomiting (N/V). dicyclomine 2020-0 Yes [id number] 20mg Take 1 Univers 20 mg 8-03 tablet by ity of tablet 00:00: mouth 4 [place] (four) Medical times Branch daily as needed for Abdominal pain. proMETHazin 2020-0 Yes [id number] 25mg Take 1 Univers e 25 mg 8-03 tablet by ity of tablet 00:00: mouth [place] 00 every 6 Medical (six) Branch hours as needed for Nausea and Vomiting (N/V). dicyclomine 2020-0 Yes [id number] 20mg Take 1 Univers 20 mg 8-03 tablet by ity of tablet 00:00: mouth 4 [place] 00 (four) Medical times Branch daily as needed for Abdominal pain. proMETHazin 2020-0 Yes [id number] 25mg Take 1 Univers e 25 mg 8-03 tablet by ity of tablet 00:00: mouth [place] 00 every 6 Medical (six) Branch hours as needed for Nausea and Vomiting (N/V). dicyclomine 202-0 Yes [id number] 20mg Take 1 Univers 20 mg 8-03 tablet by ity of tablet 00:00: mouth 4 00 (four) Medical times Branch daily as needed for Abdominal pain. proMETHazin 2020-0 Yes [id number] 25mg Take 1 Univers e 25 mg 8-03 tablet by ity of tablet 00:00: mouth [place] 00 every 6 Medical (six) Branch hours as needed for Nausea and Vomiting (N/V). dicyclomine 2020-0 Yes [id number] 20mg Take 1 Univers 20 mg 8-03 tablet by ity of tablet 00:00: mouth 4 00 (four) Medical times Branch daily as needed for Abdominal pain. proMETHazin 2020-0 Yes [id number] 25mg Take 1 Univers e 25 mg 8-03 tablet by ity of tablet 00:00: mouth [place] 00 every 6 Medical (six) Branch hours as needed for Nausea and Vomiting (N/V). dicyclomine 2020-0 Yes [id number] 20mg Take 1 Univers 20 mg 8-03 tablet by ity of tablet 00:00: mouth 00 (four) Medical times Branch daily as needed for Abdominal pain. proMETHazin 2020-0 Yes [id number] 25mg Take 1 Univers e 25 mg 8-03 tablet by ity of tablet 00:00: mouth [place] 00 every 6 Medical (six) Branch hours as needed for Nausea and Vomiting (N/V). dicyclomine 2020-0 Yes [id number] 20mg Take 1 Univers 20 mg 8-03 tablet by ity of tablet 00:00: mouth (four) Medical times Branch daily as needed for Abdominal pain. proMETHazin 2020-0 Yes [id number] 25mg Take 1 Univers e 25 mg 8-03 tablet by ity of tablet 00:00: mouth [place] 00 every 6 Medical (six) Branch hours as needed for Nausea and Vomiting (N/V). dicyclomine 2021-0 Yes [id number] 20mg Take 1 Univers 20 mg 8-03 tablet by ity of tablet 00:00: mouth 4 00 (four) Medical times Branch daily as needed for Abdominal pain. proMETHazin 2020-0 Yes [id number] 25mg Take 1 Univers e 25 mg 8-03 tablet by ity of tablet 00:00: mouth [place] 00 every 6 Medical (six) Branch hours as needed for Nausea and Vomiting (N/V). dicyclomine 2021-0 Yes [id number] 20mg Take 1 Univers 20 mg 8-03 tablet by ity of tablet 00:00: mouth 4 00 (four) Medical times Branch daily as needed for Abdominal pain. proMETHazin 2020-0 Yes [id number] 25mg Take 1 Univers e 25 mg 8-03 tablet by ity of tablet 00:00: mouth [place] 00 every 6 Medical (six) Branch hours as needed for Nausea and Vomiting (N/V). dicyclomine 2020-0 Yes [id number] 20mg Take 1 Univers 20 mg 8-03 tablet by ity of tablet 00:00: mouth 00 (four) Medical times Branch daily as needed for Abdominal pain. proMETHazin 2020-0 Yes [id number] 25mg Take 1 Univers e 25 mg 8-03 tablet by ity of tablet 00:00: mouth [place] 00 every 6 Medical (six) Branch hours as needed for Nausea and Vomiting (N/V). dicyclomine 2020-0 Yes [id number] 20mg Take 1 Univers 20 mg 8-03 tablet by ity of tablet 00:00: mouth (four) Medical times Branch daily as needed for Abdominal pain. proMETHazin 2020-0 Yes [id number] 25mg Take 1 Univers e 25 mg 8-03 tablet by ity of tablet 00:00: mouth [place] 00 every 6 Medical (six) Branch hours as needed for Nausea and Vomiting (N/V). dicyclomine 2020-0 Yes [id number] 20mg Take 1 Univers 20 mg 8-03 tablet by ity of tablet 00:00: mouth (four) Medical times Branch daily as needed for Abdominal pain. proMETHazin 2020-0 Yes [id number] 25mg Take 1 Univers e 25 mg 8-03 tablet by ity of tablet 00:00: mouth [place] 00 every 6 Medical (six) Branch hours as needed for Nausea and Vomiting (N/V). dicyclomine 2021-0 Yes [id number] 20mg Take 1 Univers 20 mg 8-03 tablet by ity of tablet 00:00: mouth 4 (four) Medical times Branch daily as needed for Abdominal pain. proMETHazin 2020-0 Yes [id number] 25mg Take 1 Univers e 25 mg 8-03 tablet by ity of tablet 00:00: mouth [place] 00 every 6 Medical (six) Branch hours as needed for Nausea and Vomiting (N/V). dicyclomine 2020-0 Yes [id number] 20mg Take 1 Univers 20 mg 8-03 tablet by ity of tablet 00:00: mouth 4 [place] 00 (four) Medical times Branch daily as needed for Abdominal pain. proMETHazin 2020-0 Yes [id number] 25mg Take 1 Univers e 25 mg 8-03 tablet by ity of tablet 00:00: mouth [place] 00 every 6 Medical (six) Branch hours as needed for Nausea and Vomiting (N/V). dicyclomine 2020-0 Yes [id number] 20mg Take 1 Univers 20 mg 8-03 tablet by ity of tablet 00:00: mouth 4 [place] 00 (four) Medical times Branch daily as needed for Abdominal pain. proMETHazin 2020-0 Yes [id number] 25mg Take 1 Univers e 25 mg 8-03 tablet by ity of tablet 00:00: mouth [place] 00 every 6 Medical (six) Branch hours as needed for Nausea and Vomiting (N/V). dicyclomine 2020-0 Yes [id number] 20mg Take 1 Univers 20 mg 8-03 tablet by ity of tablet 00:00: mouth 4 [place] 00 (four) Medical times Branch daily as needed for Abdominal pain. proMETHazin 2020-0 Yes [id number] 25mg Take 1 Univers e 25 mg 8-03 tablet by ity of tablet 00:00: mouth [place] 00 every 6 Medical (six) Branch hours as needed for Nausea and Vomiting (N/V). dicyclomine 2020-0 Yes [id number] 20mg Take 1 Univers 20 mg 8-03 tablet by ity of tablet 00:00: mouth 4 [place] 00 (four) Medical times Branch daily as needed for Abdominal pain. proMETHazin 2020-0 Yes [id number] 25mg Take 1 Univers e 25 mg 8-03 tablet by ity of tablet 00:00: mouth [place] 00 every 6 Medical (six) Branch hours as needed for Nausea and Vomiting (N/V). dicyclomine 2020-0 Yes [id number] 20mg Take 1 Univers 20 mg 8-03 tablet by ity of tablet 00:00: mouth 4 00 (four) Medical times Branch daily as needed for Abdominal pain. ZONISAMIDE Yes TAKE 1 Unive rs 100 mg 29 CAPSULE BY ity of capsule 00:00: MOUTH [place] 00 TWICE A Medical DAY Branch ZONISAMIDE 2018-2020- No TAKE 1 Univ ers 100 mg 4-29 08-03 CAPSULE BY ity of capsule 00:00: 00:00 MOUTH [place] 00 :00 TWICE A Medical DAY Branch ondansetron Yes 4mg Take 4 mg U nivers (ZOFRAN) 4 7-24 by mouth ity o f mg tablet 20:05: every 8 [place] (eight) Medical hours as Branch needed. pantoprazol 2017-0 Yes 40mg Take 40 mg Univers e 7-24 by mouth ity of (PROTONIX) 20:05: daily. [place] 40 mg EC Medical tablet Branch ondansetron Yes 4mg Take 4 mg U nivers (ZOFRAN) 4 7-24 by mouth ity o f mg tablet 20:05: every 8 [place] [address] (eight) Medical hours as Branch needed. pantoprazol 2017-0 Yes 40mg Take 40 mg Univers e 7-24 by mouth ity of (PROTONIX) 20:05: daily. [place] 40 mg EC Medical tablet Branch LISINOPRIL- 2017-0 Yes Take by Uni vers HYDROCHLORO 7-24 mouth. ity of THIAZIDE 20:05: [place] ORAL Medical Branch ondansetron Yes 4mg Take 4 mg U nivers (ZOFRAN) 4 7-24 by mouth ity o f mg tablet 20:05: every 8 [place] [address] (eight) Medical hours as Branch needed. pantoprazol 2017-0 Yes 40mg Take 40 mg Univers e 7-24 by mouth ity of (PROTONIX) 20:05: daily. [place] 40 mg EC Medical tablet Branch ondansetron 0 Yes 4mg Take 4 mg U nivers (ZOFRAN) 4 7-24 by mouth ity o f mg tablet 20:05: every 8 [place] [address] (eight) Medical hours as Branch needed. pantoprazol 2017-0 Yes 40mg Take 40 mg Univers e 7-24 by mouth ity of (PROTONIX) 20:05: daily. [place] 40 mg EC 01 Medical tablet Branch [...] o f mg tablet 20:05: every 8 [place] [address] (eight) Medical hours as Branch needed. pantoprazol [...] 19:58: daily. [place] 14 Medical Branch loratadine 0 Yes Take by Univ ers (CLARITIN 7-24 mouth ity of LIQUI-GEL) 19:58: daily. [place] 10 mg 14 Medical capsule Branch MULTIVITAMI 0 Yes 1{tbl} Take 1 Tab Univers N ORAL 7-24 by mouth ity of 19:58: daily. [place] [address] Medical Branch loratadine 0 Yes Take by Univ ers (CLARITIN 7-24 mouth ity of LIQUI-GEL) 19:58: daily. [place] 10 mg 14 Medical capsule Branch MULTIVITAMI 0 Yes 1{tbl} Take 1 Tab Univers N ORAL 7-24 by mouth ity of 19:58: daily. [place] [address] Medical Branch loratadine 0 Yes Take by Univ ers (CLARITIN 7-24 mouth ity of LIQUI-GEL) 19:58: daily. [place] 10 mg 14 Medical capsule Branch MULTIVITAMI Yes 1{tbl} Take 1 Tab Univers N ORAL 7-24 by mouth ity of 19:58: daily. [place] [address] Medical Branch loratadine 0 Yes Take by Univ ers (CLARITIN 7-24 mouth ity of LIQUI-GEL) 19:58: daily. [place] 10 mg 14 Medical capsule Branch MULTIVITAMI Yes 1{tbl} Take 1 Tab Univers N ORAL 7-24 by mouth ity of 19:58: daily. [place] [address] Medical Branch loratadine 0 Yes Take by Univ ers (CLARITIN 7-24 mouth ity of LIQUI-GEL) 19:58: daily. [place] 10 mg 14 Medical capsule Branch MULTIVITAMI Yes 1{tbl} Take 1 Tab Univers N ORAL 7-24 by mouth ity of 19:58: daily. [place] [address] Medical Branch loratadine 0 Yes Take by Univ ers (CLARITIN 7-24 mouth ity of LIQUI-GEL) 19:58: daily. [place] 10 mg 14 Medical capsule Branch MULTIVITAMI 0 Yes 1{tbl} Take 1 Tab Univers N ORAL 7-24 by mouth ity of 19:58: daily. [place] [address] Medical Branch loratadine 0 Yes Take by Univ ers (CLARITIN 7-24 mouth ity of LIQUI-GEL) 19:58: daily. [place] 10 mg 14 Medical capsule Branch ondansetron [...] o f mg tablet 15:05: every 8 [place] [address] (eight) Medical hours as Branch needed. pantoprazol 2018-0 Yes 40mg Take 40 mg Univers e 7-24 by mouth ity of (PROTONIX) 15:05: daily. [place] 40 mg EC 01 Medical tablet Branch ondansetron 2018-0 Yes 4mg Take 4 mg U nivers (ZOFRAN) 4 7-24 by mouth ity o f mg tablet 15:05: every 8 [place] [address] (eight) Medical hours as Branch needed. pantoprazol [...] 7-24 by mouth ity of 14:58: daily. [place] 14 Medical Branch loratadine Yes Take by Univ ers (CLARITIN 7-24 mouth ity of LIQUI-GEL) 14:58: daily. [place] 10 mg 14 Medical capsule Branch MULTIVITAMI Yes 1{tbl} Take 1 Tab Univers N ORAL 7-24 by mouth ity of 14:58: daily. [place] [address] Medical Branch loratadine Yes Take by [facility] ers (CLARITIN 7-24 mouth ity of LIQUI-GEL) 14:58: daily. [place] 10 mg 14 Medical capsule Branch MULTIVITAMI Yes 1{tbl} Take 1 Tab Univers N ORAL 7-24 by mouth ity of 14:58: daily. [place] [address] Medical Branch loratadine Yes Take by Univ ers (CLARITIN 7-24 mouth ity of LIQUI-GEL) 14:58: daily. [place] 10 mg 14 Medical capsule Branch MULTIVITAMI Yes 1{tbl} Take 1 Tab Univers N ORAL 7-24 by mouth ity of 14:58: daily. [place] [id number] Medical Branch loratadine Yes Take by [facility] ers (CLARITIN 7-24 mouth ity of LIQUI-GEL) 14:58: daily. [place] 10 mg 14 Medical capsule Branch MULTIVITAMI Yes 1{tbl} Take 1 Tab Univers N ORAL 7-24 by mouth ity of 14:58: daily. [place] [id number] Medical Branch loratadine Yes Take by [facility] ers (CLARITIN 7-24 mouth ity [...] ESTRIL) 40 00:00: daily. [place] mg tablet Medical Branch carvedilol Yes 6.25mg Take 1 Tab Univers (COREG) 3-03 by mouth 2 ity of 6.25 mg 00:00: (two) [place] tablet 00 times Medical daily with Branch meals. amLODIPine Yes 10mg Take 1 Tab U nivers (NORVASC) 3-03 by mouth ity of 10 mg 00:00: daily. [place] tablet Medical Branch lisinopril Yes 40mg Take 1 Tab U nivers (PRINIVIL,Z 3-03 by mouth ity of ESTRIL) 40 00:00: daily. [place] mg tablet Medical [place] Vital Signs Vital Name Observation Time Observation Value Comments Source HEIGHT 2023-03-29 20:00:00 157.5 cm WEIGHT 2023-03-29 20:00:00 92.08 kg HEIGHT 2023-03-29 20:00:00 157.5 cm WEIGHT 2023-03-29 20:00:00 92.08 kg Systolic blood 2022-12-11 20:00:00 142 mm[Hg] Univer sity of pressure [facility] Diastolic blood 2022-12-11 20:00:00 90 mm[Hg] Unive rsity of [facility] Respiratory rate 2022-12-11 20:00:00 24 /min [facility] Heart rate 2022-12-11 18:00:00 101 /min [facility] Oxygen saturation in 2022-12-11 18:00:00 93 /min [facility] Arterial blood by [facility] Pulse oximetry Branch BMI 2022-12-11 13:55:00 35.43 kg/m2 [facility] Body temperature 2022-12-11 13:55:00 37.22 Radha [facility] weight 2022-12-11 13:55:00 90.719 kg [facility] Systolic blood 2022-11-18 05:34:00 152 mm[Hg] Univer sity of [facility] Diastolic blood 2022-11-18 05:34:00 98 mm[Hg] Unive rsity of [facility] Heart rate 2022-11-18 05:34:00 88 /min [facility] [place] [facility] Respiratory rate 2022-11-18 05:34:00 18 /min Univ ersity of [place] [facility] Oxygen saturation in 2022-11-18 05:34:00 97 /min University of Arterial blood by [facility] kwame Pulse oximetry Branch Body temperature 2022-11-17 22:28:00 37.06 Radha Univ ersity of [place] [facility] Body height 2022-11-17 22:28:00 160 cm [facility] [place] [facility] Body weight 2022-11-17 22:28:00 99.791 kg [facility] [place] [facility] BMI 2022-11-17 22:28:00 38.97 kg/m2 [facility] [place] [facility] Heart rate 2022-08-02 02:02:00 108 /min [facility] [place] [facility] Respiratory rate 2022-08-02 02:02:00 28 /min Univ ersity of [place] [facility] Oxygen saturation in 2022-08-02 02:02:00 97 /min University of Arterial blood by [facility] Pulse oximetry Branch Body temperature 2022-08-02 01:00:00 36.44 Radha Univ ersity [facility] [place] [facility] Systolic blood 2022-08-01 23:29:00 145 [...] [facility] kwame Pulse oximetry Branch Body height 2022-05-05 23:44:00 160 cm [facility] [place] [facility] Body weight 2022-05-05 23:37:00 81.647 kg [facility] [place] [facility] BMI 2022-05-05 23:37:00 31.89 kg/m2 [facility] [place] [facility] Systolic blood 2022-04-15 18:52:00 104 mm[Hg] Univer sity of pressure [place] [facility] Diastolic blood 2022-04-15 18:52:00 82 mm[Hg] Unive rsity of pressure [place] [facility] Heart rate 2022-04-15 18:52:00 114 /min [facility] [place] [facility] Oxygen saturation in 2022-04-15 18:52:00 98 /min University of Arterial blood by [facility] Pulse oximetry Branch Body temperature 2022-04-15 16:14:00 36.28 Radha Univ ersity of [place] [facility] Respiratory rate 2022-04-15 16:14:00 17 /min Univ ersity [facility] [place] [facility] Body height 2022-04-13 21:08:00 160 cm [facility] [place] [facility] Body weight 2022-04-13 21:08:00 91.173 kg [facility] [place] [facility] BMI 2022-04-13 21:08:00 35.61 kg/m2 [facility] [place] [facility] Systolic blood 2021-11-23 21:30:00 132 mm[Hg] Univer sity of pressure [place] [facility] Diastolic blood 2021-11-23 21:30:00 76 mm[Hg] Unive rsity of pressure [place] [facility] Heart rate 2021-11-23 21:30:00 95 /min [facility] [place] [facility] Respiratory rate 2021-11-23 21:30:00 13 /min Univ ersity of [place] [facility] Oxygen saturation in 2021-11-23 21:30:00 97 /min University of Arterial blood by [facility] Pulse oximetry Branch Body temperature 2021-11-23 20:15:00 37.56 Radha Univ ersity [facility] [place] [facility] Systolic blood 2021-03-17 03:00:00 117 mm[Hg] Univer sity of pressure [place] [facility] Diastolic blood 2021-03-17 03:00:00 76 mm[Hg] Unive rsity of pressure [place] [facility] Heart rate 2021-03-17 03:00:00 104 /min [facility] [place] [facility] Respiratory rate 2021-03-17 03:00:00 28 /min Univ ersity of [place] [facility] Oxygen saturation in 2021-03-17 03:00:00 96 /min University of Arterial blood by [place] [facility] kwame Pulse oximetry Branch Body temperature 2021-03-17 00:39:00 37.11 Radha Univ [facility] [place] [facility] Body height 2021-03-17 00:39:00 160 cm [facility] [place] [facility] Body weight 2021-03-17 00:39:00 58.968 kg [facility] [place] [facility] BMI 2021-03-17 00:39:00 23.03 kg/m2 [facility] [place] [facility] Systolic blood 2021-03-15 00:14:00 149 mm[Hg] Univer sity of pressure [place] [facility] Diastolic blood 2021-03-15 00:14:00 78 mm[Hg] Unive rsity of pressure [place] [facility] Heart rate 2021-03-15 00:14:00 100 /min [facility] [place] [facility] Body temperature 2021-03-15 00:14:00 37.33 Radha Univ ersity [facility] [place] [facility] Respiratory rate 2021-03-15 00:14:00 24 /min Univ ersity [facility] [place] [facility] Body height 2021-03-15 00:14:00 160 cm [facility] [place] [facility] Body weight 2021-03-15 00:14:00 58.968 kg [facility] [place] [facility] BMI 2021-03-15 00:14:00 23.03 kg/m2 [facility] [place] [facility] Oxygen saturation in 2021-03-15 00:14:00 98 /min University of Arterial blood by [place] [facility] kwame Pulse oximetry Branch Systolic blood 2021-02-19 18:00:00 131 mm[Hg] Univer sity of pressure [place] [facility] Diastolic blood 2021-02-19 18:00:00 80 mm[Hg] Unive rsity of pressure [place] [facility] Heart rate 2021-02-19 18:00:00 83 /min [facility] [place] [facility] Respiratory rate 2021-02-19 18:00:00 18 /min [facility] Oxygen saturation in 2021-02-19 18:00:00 100 /min University Arterial blood by [facility] Pulse oximetry [place] Body temperature 2021-02-19 15:47:00 37 Radha [facility] Body height 2021-02-19 15:47:00 160 cm [facility] Body weight 2021-02-19 15:47:00 58.968 kg [facility] BMI 2021-02-19 15:47:00 23.03 kg/m2 [facility] Respiratory rate 2023-04-02 16:35:00 18 /min [facility] Oxygen saturation in 2023-04-02 16:35:00 98 /min [facility] Arterial blood by Medical Ce nter Pulse oximetry Systolic blood 2023-04-02 12:00:00 147 mm[Hg] [facility] Diastolic blood 2023-04-02 12:00:00 97 mm[Hg] [facility] Heart rate 2023-04-02 12:00:00 106 /min [facility] Body temperature 2023-04-02 12:00:00 36.28 Radha [facility] Body height 2023-03-30 02:14:00 157.5 cm [facility] Body weight 2023-03-30 02:14:00 92.08 kg [facility] BMI 2023-03-30 02:14:00 37.13 kg/m2 [facility] Respiratory rate 2022-08-03 14:40:00 18 /min [facility] Systolic blood 2022-08-03 12:13:00 112 mm[Hg] [facility] Diastolic blood 2022-08-03 12:13:00 77 mm[Hg] [facility] Heart rate 2022-08-03 12:13:00 115 /min [facility] Oxygen saturation in 2022-08-03 12:13:00 93 /min [facility] Arterial blood by Medical Ce nter Pulse oximetry Body temperature 2022-08-03 12:00:00 36.83 Radha [facility] Body height 2022-08-02 21:52:00 160.2 cm [facility] Body weight 2022-08-02 21:52:00 95 kg [facility] BMI 2022-08-02 21:52:00 37.02 kg/m2 [facility] BP Systolic 2022-07-24 13:31:00 136 [...] Thomas Lozoya [facility] BEDSIDE 15:32:16 [facility] B-TYPE NATRIURETIC FACTOR 2023-04-01 Thomas Loz[address] [facility] (BNP) 13:32:00 [facility] ECHO W CONTRAST & DOPPLER 2023-03-31 Mariah Aldridge [facility] 20:18:37 [facility] MR CERVICAL SPINE WITHOUT IV 2023-03-[address] [facility] CONTRAST 09:25:00 [facility] CBC (HEMOGRAM ONLY) 2023-03-[address] [facility] 03:45:00 [facility] COMPREHENSIVE METABOLIC PANEL 2023-03-[address] [facility] 03:45:00 [facility] ARTERIAL DOPPLER LEGS 2023-03-[address] BILATERAL 15:45:00 [facility] ARTERIAL (ALEISHA'S W/ DOPPLER) 2023-03-[address] [facility] ONLY 15:44:00 [facility] ECG 12-LEAD 2023-03-[address] [facility] 13:06:22 [facility] Center ECG 12-LEAD 2023-03-30 Unknown, Hl7 Doctor [facility] 13:06:22 [facility] MR THORACIC SPINE WITHOUT IV 2023-03-[address] [facility] CONTRAST 12:29:58 [facility] MR LUMBAR SPINE WITHOUT IV 2023-03-[address] [facility] CONTRAST 11:58:00 [facility] EEG AWAKE AND DROWSY 2023-03-[address] [facility] 09:57:53 [facility] VALPROIC ACID LEVEL, TOTAL 2023-03-30 BerryLiudmila [facility] 09:06:00 [facility] URINALYSIS W/ REFLEX URINE 2023-03-[address] [facility] CULTURE 03:54:00 [facility] CBC (HEMOGRAM ONLY) 2023-03-[address] [facility] 03:52:00 [facility] COMPREHENSIVE METABOLIC PANEL 2023-03-[address] [facility] 03:52:00 [facility] HEMOGLOBIN A1C 2023-03-30 Luis Carlos Mariah [facility] 03:52:00 [facility] Center PT/APTT 2023-03-30 Devora, Mrinalini [facility] 03:52:00 [facility] EKG-SCANNED 2023-03-[address] [facility] 00:00:00 Scanning [facility] Center CT HEAD WO CONTRAST 2022-12-11 Alfonso Alvarado o f 18:36:49 [facility] URINE DRUG (IMMUNOASSAY) - 2022-12-11 Alfonso Alvarado Unive rsity of COMPREHENSIVE DRUG SCREEN 17:13:00 [facility] URINALYSIS 2022-12-11 Alfonso Alvarado [place] of 17:13:00 [facility] CT CHEST PULMONARY ANGIOGRAM 2022-12-11 Alfonso Alvarado Uni versity of 16:26:39 [facility] MAGNESIUM 2022-12-11 Alfonso Alvarado [place] of 14:57:00 [facility] COMP. METABOLIC PANEL (57226) 2022-12-11 Alfonso Alvarado iversity of 14:57:00 [facility] D-DIMER 2022-12-11 Alfonso Alvarado [place] of 14:15:00 [facility] XR CHEST 1 VW 2022-12-11 Alfonso Alvarado [place] of 14:10:26 [facility] TROPONIN I 2022-12-11 Alfonso Alvarado [place] of 14:02:00 [facility] CBC WITH DIFF 2022-12-11 Alfonso Alvarado [place] of 14:02:00 [facility] N-TERMINAL PRO-BNP 2022-12-11 Alfonso Alvarado [place] of 14:02:00 [facility] HB ECG ROUTINE & RHYTHM STRIP 2022-12-11 Alfonso Alvarado Un iversity of 14:01:08 [facility] CONSENT/REFUSAL FOR DIAGNOSIS 2022-12-11 Doctor Unassigned, University of AND TREATMENT 13:52:01 [place] [facility] ECG 12-LEAD 2022-08-03 Unknown, Hl7 Doctor ROB Renteria 05:03:32 [facility] ECG 12-LEAD 2022-08-03 Unknown, Hl7 [facility] 05:03:32 [facility] LIPID PANEL 2022-08-[address] [facility] 21:14:00 [facility] TSH/FREE T4 IF INDICATED 2022-08-02 Donaldo Hightower [facility] 21:14:00 [facility] VITAMIN B12 2022-08-02 Donaldo Hightower [facility] 21:14:00 [facility] HEMOGLOBIN A1C 2022-08-02 Donaldo Hightower [facility] 21:14:00 [facility] COMPREHENSIVE METABOLIC PANEL 2022-08-02 Donaldo Hightower CH 21:14:00 [facility] CBC W/PLT COUNT & AUTO 2022-08-02 Donaldo Hightower [facility] DIFFERENTIAL 21:14:00 [facility] RPR 2022-08-[address] [facility] 21:14:00 [facility] HC LAB HIV-1 AG W/HIV-1&2 AB 2022-08-02 Donaldo Hightower CHI 21:14:00 [facility] C-REACTIVE PROTEIN 2022-08-02 Donaldo Hightower CHI 21:14:00 [facility] CBC W/PLT COUNT & AUTO 2022-08-02 Donaldo Hightower [facility]I k[facility] DIFFERENTIAL 21:14:00 [facility] EKG-SCANNED 2022-08-02 Eliceo Montanez CHI 00:00:00 [facility] CT HEAD WO CONTRAST 2022-08-01 Lorenza Lowry [place] o f 23:52:15 [facility] GALV ONLY - INFLUENZA A B RSV 2022-08-01 LindseyLetitia hudson Un iversity of PCR 18:28:00 [facility] TRANSTHORACIC ECHO (TTE) 2022-08-[facility] COMPLETE W/ CONTRAST 14:42:00 [facility] MAGNESIUM 2022-08-01 Essence [facility] of 10:42:00 [facility] BASIC METABOLIC PANEL (NA, K, 2022-08-01 Lorenza Lowry Un iversity of CL, CO2, GLUCOSE, BUN, 10:42:00 [facility] ical CREATININE, CA) Branch CBC WITH DIFF 2022-08-01 Lorenza Lowry [place] of 10:42:00 [facility] N-TERMINAL PRO-BNP 2022-08-01 Tc [facility] of 10:42:00 [facility] POCT GLUCOSE (AUTOMATED) 2022-08-[address] [facility] ity of 06:56:00 [facility] CRITICAL CARE 2022-07-31 Sav Rondon [place] of 22:31:36 [facility] URINALYSIS 2022-07-31 Sav Rondon [place] of 20:52:00 [facility] URINE DRUG (IMMUNOASSAY) - 2022-07-31 [facility] COMPREHENSIVE DRUG SCREEN W/O 20:52[place]00 [place] [facility] REFLEX Branch XR CHEST 1 VW 2022-07-31 Sav Rondon of 18:45:17 [facility] LIPASE 2022-07-31 Sav Rondon [place] of 17:58:00 [facility] TROPONIN I 2022-07-31 Sav Rondon [place] of 17:58:00 [facility] COMP. METABOLIC PANEL ([id number]) 2022-07-31 Sav Rondon iversity of 17:58:00 [facility] CBC WITH DIFF 2022-07-31 Sav Rondon of 17:58:00 [facility] PROTHROMBIN TIME / INR 2022-07-31 Sav Rondonit y of 17:58:00 [facility] ACTIVATED PARTIAL THRMPLAS 2022-07-31 Sav Rondon rsity of DAVID 17:58:00 [facility] N-TERMINAL PRO-BNP 2022-07-31 Sav Rondon [place] of 17:58:00 [facility] HB ECG ROUTINE & RHYTHM STRIP 2022-07-31 Sav Rondon Un iversity of 17:46:28 [facility] NOTICE OF PRIVACY PRACTICES 2022-07-31 Doctor Unassigned, U niversity of 17:35:38 [place] [facility] CONSENT/REFUSAL FOR DIAGNOSIS 2022-07-31 Doctor Unassigned, University of AND TREATMENT 17:35:13 [place] [facility] PHOSPHORUS 2022-05-08 Shefali, [facility] of 05:51:00 [facility] MAGNESIUM 2022-05-08 [facility] of 05:51:00 [facility] BASIC METABOLIC PANEL (NA, K, 2022-05-08 Shefali, [place] U niversity of CL, CO2, GLUCOSE, BUN, 05:51:00 [place] ical CREATININE, [place]) Branch CBC WITH DIFF 2022-05-08 Shefali [facility] of 05:51:00 [facility] BASIC METABOLIC PANEL (NA, K, 2022-05-07 [facility] of CL, CO2, GLUCOSE, BUN, 07:09:00 Shailesh [facility] ical CREATININE, [place]) Branch CBC WITH DIFF 2022-05-07 [facility] of 07:09:00 [facility] POCT GLUCOSE (AUTOMATED) 2022-05-07 Brandyn Ibrahim of 01:16:00 [facility] HB ABO GROUPING 2022-05-06 Ismael Dunn [place] of 05:07:00 [facility] BASIC METABOLIC PANEL (NA, K, 2022-05-06 Shefali, [place] U niversity of CL, CO2, GLUCOSE, BUN, 05:04:00 [place] ical CREATININE, CA) Branch CBC WITH DIFF 2022-05-06 Shefali [facility] of 05:04:00 [facility] KEPPRA (LEVETIRACETAM) 2022-05-06 [facility] of 05:04:00 [facility] MR LUMBAR SPINE WO CONTRAST 2022-05-06 Kneedler, Ender U niversity of 02:54:37 [facility] ELECTROENCEPHALOGRAM 2022-05-06 John Cintron ty of 00:00:00 Shailesh [facility] BASIC METABOLIC PANEL (NA, K, 2022-05-05 [facility] of CL, CO2, GLUCOSE, BUN, 07:57:00 [facility] [place] [facility] ica CREATININE, CA) Branch CBC WITH DIFF 2022-05-05 [facility] of 07:57:00 [facility] PROTHROMBIN TIME / INR 2022-05-05 [facility] ersity of 07:57:00 [facility] ACTIVATED PARTIAL THRMPLAS 2022-05-05 [facility] of DAVID 07:57:00 [facility] FIBRINOGEN 2022-05-05 [facility] of 07:57:00 [facility] EMERGENCY SERVICES AGREEMENTS 2022-05-04 Doctor Unassigned, University of AND AUTHORIZATIONS 05:01:00 [place] [facility] VITAMIN D, 25-OH 2022-04-15 [place] of 16:53:00 [facility] MR THORACIC SPINE WO CONTRAST 2022-04-15 Soumya Chua Un iversity of 11:56:19 [facility] MR CERVICAL SPINE WO CONTRAST 2022-04-15 John Chuaena Un iversity of 11:20:00 [facility] BASIC METABOLIC PANEL (NA, K, 2022-04-15 Charmaine Morataya Un iversity of CL, CO2, GLUCOSE, BUN, 10:36:00 [facility] ical CREATININE, CA) Branch TEST, URINE 2022-04-15 [facility] of 04:39:00 [facility] URINE DRUG (IMMUNOASSAY) - 2022-04-15 [facility] rsity of COMPREHENSIVE DRUG SCREEN 04:39:00 [facility] URINALYSIS 2022-04-15 [facility] of 04:39:00 [facility] TRANSTHORACIC ECHO (TTE) 2022-04-14 [facility] [place] ity of COMPLETE W/ CONTRAST 16:37:03 [facility] KEPPRA (LEVETIRACETAM) 2022-04-14 Harshil [facility] y of 15:30:00 [facility] MAGNESIUM 2022-04-14 [facility] of 10:03:00 [facility] BASIC METABOLIC PANEL (NA, K, 2022-04-14 Soumya Chua iversity of CL, CO2, GLUCOSE, BUN, 10:03:00 [place] [facility] ical CREATININE, [place]) Branch MR LUMBAR SPINE WO CONTRAST 2022-04-14 [facility] ersity of 02:48:12 [facility] MR STROKE BRAIN WO CONTRAST 2022-04-14 [facility] ersity of 02:29:00 [facility] [address] STROKE ANGIOGRAM HEAD 2022-04-13 Sapna Vargas [facility] ersity of 18:40:00 [facility] CT STROKE ANGIOGRAM NECK 2022-04-13 Sapna Vargas [facility] ersity of 18:40:00 [facility] CT STROKE HEAD WO CONTRAST 2022-04-13 Sapna Vargas iversity of 18:36:00 [facility] TROPONIN I 2022-04-13 Sapna Vargas [place] of 18:17:00 [facility] THYROID STIMULATING HORMONE 2022-04-13 [facility] ersity of 18:17:00 [facility] BASIC METABOLIC PANEL (NA, K, 2022-04-13 Sapna Vargas [place] of CL, CO2, GLUCOSE, BUN, 18:17:00 [place] [facility] ical CREATININE, [place]) Branch LIPID PANEL ([id number])(TOTAL 2022-04-13 Harshil [facility] sity of CHOLESTEROL, TRIGLYCERIDES, 18:17:00 [facility] [place] [facility] HDL) Branch CBC WITHOUT DIFF 2022-04-13 Sapna Vragas [place] f 18:17:00 [facility] GLYCOSYLATED HEMOGLOBIN (A1C) 2022-04-13 Soumya Chua Un iversity of 18:17:00 [facility] PROTHROMBIN TIME / INR 2022-04-13 Sapna Vargas [facility] sity of 18:17:00 [facility] ACTIVATED PARTIAL THRMPLAS 2022-04-13 Sapna Vargas iversity of DAVID 18:17:00 [facility] COVID-19 (ID NOW RAPID 2022-04-13 Sapna Vargas [facility] sity of TESTING) 18:17:00 [facility] LAB ONLY COVID INTERPRETATION 2022-04-13 Sapna Vargas [facility] 18:17:00 [facility] HB ECG ROUTINE & RHYTHM STRIP 2022-04-13 Sapna Vargas [facility] 18:15:49 [facility] CONSENT/REFUSAL FOR DIAGNOSIS 2022-04-13 Doctor Unassigned, [facility] AND TREATMENT 18:05:14 [place] [facility] HOSPITAL ADMISSION 2022-04-13 Doctor Unassigned, [facility] 05:01:00 [place] [facility] SARS-COV-2 COVID-19 VACCINE 2022-02-19 Doctor Unassigned, U niversity of 12 YRS+,0.3ML,IM (PFIZER - 15:21:12 [place] [facility] URINE DRUG (IMMUNOASSAY) - 2021-11-23 [facility] of COMPREHENSIVE DRUG SCREEN W/O 21:21[place]00 [place] [facility] [place] HEAD WO CONTRAST 2021-11-23 [facility] ty of 20:58:00 [facility] POCT TEST 2021-11-23 [facility] ty of 20:46:00 [facility] URINALYSIS 2021-11-23 [facility] f 20:43:00 [facility] LIPASE 2021-11-23 [facility] o f 20:27:00 [facility] TROPONIN I 2021-11-23 [facility] o f 20:27:00 [facility] COMP. METABOLIC PANEL ([id number]) 2021-11-23 [facility] of 20:27:00 [facility] CBC WITH DIFF 2021-11-23 [facility] o f 20:27:00 [facility] POCT GLUCOSE (AUTOMATED) 2021-11-23 Doctor Unassjulee, [facility] ersity of 20:15:00 [place] [facility] SARS-COV-2 COVID-19 2021-05-24 Doctor Unassigned, Universit y of VACCINE,0.3ML,IM (PFIZER) 14:23:12 [place] [facility] SARS-COV-2 COVID-19 2021-05-03 Doctor Unassigned, Universit y of VACCINE,0.3ML,IM (PFIZER) 14:59:29 [place] [facility] EMERGENCY SERVICES AGREEMENTS 2021-04-16 Doctor Unassigned, [place] AND AUTHORIZATIONS 05:01:00 [place] [facility] URINALYSIS 2021-03-17 Fabrice Chakraborty [place] [facility] 03:09:00 [facility] XR CHEST 1 VW 2021-03-17 [facility] of 01:45:07 [facility] TROPONIN I 2021-03-17 [place] [facility] of 01:35:00 [facility] COMP. METABOLIC PANEL (40979) 2021-03-17 Fabrice Chakraborty [facility] 01:35:00 [facility] CBC WITH DIFF 2021-03-17 [facility] of 01:35:00 [facility] N-TERMINAL PRO-BNP 2021-03-17 [facility] of 01:35:00 [facility] COVID-19 (ID NOW RAPID 2021-03-17 Brian Ray [facility] y of TESTING) 00:58:00 [facility] CONSENT/REFUSAL FOR DIAGNOSIS 2021-03-17 Doctor Unassigned, [facility] AND TREATMENT 00:32:59 [place] [facility] COVID-19 (ID NOW RAPID 2021-02-19 Anali Monroy [facility] y of TESTING) 17:04:[address] [facility] [address] ABDOMEN PELVIS W CONTRAST 2021-02-19 Anali Monroy [facility] 16:41:18 [facility] LIPASE 2021-02-19 Anali Monroy [place] [facility] 15:58:00 [facility] COMP. METABOLIC PANEL ([id number]) 2021-02-19 Anali Monroy [facility] 15:58:00 [facility] CBC WITH DIFF 2021-02-19 Anali Monroy [place] [facility] 15:58:00 [facility] URINALYSIS 2021-02-19 Anali Monroy [place] [facility] 15:58:00 [facility] NOTICE OF PRIVACY PRACTICES 2021-02-19 Doctor Unassjulee, [facility] 15:30:46 [place] [facility] CONSENT/REFUSAL FOR DIAGNOSIS 2021-02-19 Doctor Unassigned, [facility] AND TREATMENT 15:30:30 [place] [facility] Plan of Care Planned Activity Planned Date Details Comments Source Future Scheduled 2025-08-02 Lipid panel (procedure) [facility] 00:00:00 [code = [id number]] Medical Ce [facility]ter Future Scheduled 2025-08-02 Lipid panel (procedure) [facility] 00:00:00 [code = 76648944] Medical Ce [facility]ter Future Scheduled 2025-08-02 Lipid panel (procedure) [facility] 00:00:00 [code = [id number]] Medical Ce [facility]ter Future Scheduled 2025-08-02 Lipid panel (procedure) [facility] 00:00:00 [code = [id number]] Medical Ce [facility]ter Future Scheduled 2025-08-02 Lipid panel (procedure) [facility] 00:00:00 [code = 63509316] Medical Ce [facility]ter Future Scheduled 2025-08-02 Lipid panel (procedure) [facility] 00:00:00 [code = 89603715] Medical Ce nter Future Scheduled 2025-08-02 Lipid panel (procedure) [facility] 00:00:00 [code = 26209726] Medical Ce nter Future Scheduled 2025-08-02 Lipid panel (procedure) [facility] 00:00:00 [code = 60882518] Medical Ce [facility]ter Future Scheduled 2025-08-02 Lipid panel (procedure) [facility] 00:00:00 [code = 72888037] Medical Ce [facility]ter Future Scheduled 2025-08-02 Lipid panel (procedure) [facility] 00:00:00 [code = 82344077] Medical Ce [facility]ter Future Scheduled 2025-08-02 Lipid panel (procedure) [facility] 00:00:00 [code = 94727193] Medical Ce nter Future Scheduled 2025-08-02 Lipid panel (procedure) [facility] 00:00:00 [code = 50900871] Medical Ce [facility]ter Future Scheduled 2025-08-02 Lipid panel (procedure) [facility] 00:00:00 [code = 53745602] Medical Ce nter Future Scheduled 2025-08-02 Lipid panel (procedure) [facility] 00:00:00 [code = 77749980] Medical Ce nter Future Scheduled 2025-08-02 Lipid panel (procedure) [facility] 00:00:00 [code = 15832256] Medical Ce nter Future Scheduled 2025-08-02 Lipid panel (procedure) [facility] 00:00:00 [code = 00615130] Medical Ce nter Future Scheduled 2025-08-02 Lipid panel (procedure) [facility] 00:00:00 [code = 12474328] Medical Ce nter Future Scheduled 2025-08-02 Lipid panel (procedure) [facility] 00:00:00 [code = 06793899] Medical Ce nter Future Scheduled 2025-08-02 Lipid panel (procedure) [facility] 00:00:00 [code = 63419893] Medical Ce nter Future Scheduled 2025-08-02 Lipid panel (procedure) [facility] 00:00:00 [code = 82558262] Medical Ce nter Future Scheduled 2025-08-02 Lipid panel (procedure) [facility] 00:00:00 [code = 83649725] Medical Ce nter Future Scheduled 2023-03-20 INFLUENZA [...] lung [facility] (procedure) [code = 380218486] Future Scheduled 2022-01-14 SHINGLES VACCINES ([address] [facility] 00:00:00 2) [code = SHINGLES [facility] VACCINES (1 of 2)] Future Scheduled 2022-01-14 Screening for malignant [facility] 00:00:00 neoplasm of lung [facility] (procedure) [code = 769344591] Future Scheduled 2022-01-14 SHINGLES VACCINES ([address] [facility] 00:00:00 2) [code = SHINGLES Medical [facility] VACCINES (1 of 2)] Future Scheduled 2022-01-14 Screening for malignant [facility] 00:00:00 neoplasm of lung [facility] (procedure) [code = 156232407] Future Scheduled 2022-01-14 SHINGLES VACCINES ([address] [facility] 00:00:00 2) [code = SHINGLES Medical Center VACCINES (1 of 2)] Future Scheduled 2022-01-14 Screening for malignant [facility] 00:00:00 neoplasm of lung [facility] (procedure) [code = 222434422] Future Scheduled 2022-01-14 SHINGLES VACCINES ([address] [facility] 00:00:00 2) [code = SHINGLES [facility] VACCINES (1 of 2)] Future Scheduled 2022-01-14 Screening for malignant [facility] 00:00:00 neoplasm of lung [facility] (procedure) [code = 697098027] Future Scheduled 2022-01-14 SHINGLES VACCINES ([address] [facility] 00:00:00 2) [code = SHINGLES Medical Center VACCINES (1 of 2)] Future Scheduled 2022-01-14 Screening for malignant [facility] 00:00:00 neoplasm of lung [facility] (procedure) [code = 256063363] Future Scheduled 2022-01-14 SHINGLES VACCINES (1 of [...] cervix Medical C enter (procedure) [code = 249581581] Future Scheduled 1993-01-14 Screening for malignant [facility] 00:00:00 neoplasm of cervix [facility] (procedure) [code = 687604014] Future Scheduled 1993-01-14 Screening for malignant [facility] 00:00:00 neoplasm of cervix [facility] (procedure) [code = 435637320] Future Scheduled 1993-01-14 Screening for malignant [facility] 00:00:00 neoplasm of cervix [facility] (procedure) [code = 795872025] Future Scheduled 1993-01-14 Screening for malignant [facility] 00:00:00 neoplasm of cervix [facility] (procedure) [code = 746527583] Future Scheduled 1993-01-14 Screening for malignant [facility] 00:00:00 neoplasm of cervix [facility] (procedure) [code = 399940483] Future Scheduled 1993-01-14 Screening for malignant [facility] 00:00:00 neoplasm of cervix [facility] (procedure) [code = 441645531] Future Scheduled 1993-01-14 Screening for malignant [facility] 00:00:00 neoplasm of cervix [facility] (procedure) [code = 768907741] Future Scheduled 1993-01-14 Screening for malignant [facility] 00:00:00 neoplasm of cervix [facility] (procedure) [code = 755178490] Future Scheduled 1993-01-14 Screening for malignant [facility] 00:00:00 neoplasm of cervix [facility] (procedure) [code = 160217092] Future Scheduled 1993-01-14 Screening for malignant [facility] 00:00:00 neoplasm of cervix [facility] (procedure) [code = 143335000] Future Scheduled 1993-01-14 Screening for malignant [facility] 00:00:00 neoplasm of cervix [facility] (procedure) [code = 229595328] Future Scheduled 1993-01-14 Screening for malignant [facility] 00:00:00 neoplasm of cervix Medical [facility] (procedure) [code = 934484756] Future Scheduled 1993-01-14 Screening for malignant [facility] 00:00:00 neoplasm of cervix Medical [facility] (procedure) [code = 766464356] Future Scheduled 1993-01-14 Screening for malignant [facility] 00:00:00 neoplasm of cervix Medical [facility] (procedure) [code = 584427806] Future Scheduled 1993-01-14 Screening for malignant [facility] 00:00:00 neoplasm of cervix Medical [facility] (procedure) [code = 395492272] Future Scheduled 1993-01-14 Screening for malignant [facility] 00:00:00 neoplasm of cervix [facility] (procedure) [code = 342292493] Future Scheduled 1993-01-14 Screening for malignant [facility] 00:00:00 neoplasm of cervix [facility] (procedure) [code = 844766735] Future Scheduled 1993-01-14 Screening for malignant [facility] 00:00:00 neoplasm of cervix Medical [facility] (procedure) [code = 749258203] Future Scheduled 1993-01-14 Screening for malignant [facility] 00:00:00 neoplasm of cervix Medical [facility] (procedure) [code = 210243926] Future Scheduled 1993-01-14 Screening for malignant [facility] 00:00:00 neoplasm of cervix [facility] (procedure) [code = 752873325] Future Scheduled 1991-01-14 DTAP/TDAP/TD VACCINES (1 [facility] [...] screening [facility] (procedure) [code = 758172723] Future Scheduled 1987-01-[address] [facility] virus screening [facility] (procedure) [code = 199943977] Future Scheduled [address] [...] breast Medical C enter (procedure) [code = 973351085] Future Scheduled 1972 CT Colonography (combo) [facility] 00:00:00 [code = CT Colonography [facility] (combo)] Future Scheduled 1972 Screening for malignant [facility] 00:00:00 neoplasm of colon [facility] (procedure) [code = 175481315] Future Scheduled 1972 Screening for malignant [facility] 00:00:00 neoplasm of colon [facility] (procedure) [code = 317639775] Future Scheduled 1972 Screening for malignant [facility] 00:00:00 neoplasm of colon [facility] (procedure) [code = 752467499] Future Scheduled 1972 Screening for malignant [facility] 00:00:00 neoplasm of colon [facility] (procedure) [code = 475113652] Future Scheduled 1972 Sigmoidoscopy [facility]code = [facility]] [facility] Cent[facility] Future Scheduled 1972 Screening for malignant [facility] 00:00:00 neoplasm of breast Medical [facility] (procedure) [code = 852708124] Future Scheduled 1972 CT Colonography (combo) [facility] 00:00:00 [code = [facility] ([facility] Future Scheduled 1972 Screening for malignant [facility] 00:00:00 neoplasm of colon [facility] (procedure) [code = 917577407] Future Scheduled 1972 Screening for malignant [facility] 00:00:00 neoplasm of colon [facility] (procedure) [code = 370278329] Future Scheduled 1972 Screening for malignant [facility] 00:00:00 neoplasm of colon [facility] (procedure) [code = 353773579] Future Scheduled 1972 Screening for malignant [facility] 00:00:00 neoplasm of colon [facility] (procedure) [code = 379350180] Future Scheduled 1972 S[facility]oidoscopy [facility]] [facility] Cent[facility] Future Scheduled 1972 Screening for malignant [facility] 00:00:00 neoplasm of breast Medical [facility] (procedure) [code = 672654652] Future Scheduled 1972 CT Colonography (combo) [facility] 00:00:00 [code = CT Colonography [facility] (combo)] Future Scheduled 1972 Screening for malignant [facility] 00:00:00 neoplasm of colon [facility] Ce [facility] (procedure) [code = 629817282] Future Scheduled 1972 Screening for malignant [facility] 00:00:00 neoplasm of colon [facility] (procedure) [code = 276638835] Future Scheduled 1972 Screening for malignant [facility] 00:00:00 neoplasm of colon [facility] (procedure) [code = 942073501] Future Scheduled 1972 Screening for malignant [facility] 00:00:00 neoplasm of colon Medical [facility] (procedure) [code = 378760244] Future Scheduled 1972 S[facility]oidoscopy [facility] = [facility]] [facility] Cent[facility] Future Scheduled 1972 Screening for malignant [facility] 00:00:00 neoplasm of breast Medical [facility] (procedure) [code = 025514549] Future Scheduled 1972 CT Colonography (combo) [facility] 00:00:00 [code = [facility] ([facility] Future Scheduled 1972 Screening for malignant [facility] 00:00:00 neoplasm of colon [facility] (procedure) [code = 761021914] Future Scheduled 1972 Screening for malignant [facility] 00:00:00 neoplasm of colon [facility] (procedure) [code = 138135753] Future Scheduled 1972 Screening for malignant [facility] 00:00:00 neoplasm of colon [facility] Ce [facility] (procedure) [code = 648933072] Future Scheduled 1972 Screening for malignant [facility] 00:00:00 neoplasm of colon [facility] Ce [facility] (procedure) [code = 543949328] Future Scheduled 1972 S[facility]oidoscopy [facility] = [facility]] [facility] Cent[facility] Future Scheduled 1972 Screening for malignant [facility] 00:00:00 neoplasm of breast Medical [facility] (procedure) [code = 875821292] Future Scheduled 1972 CT Colonography (combo) [facility] 00:00:00 [code = CT Colonography [facility] (combo)] Future Scheduled 1972 Screening for malignant [facility] 00:00:00 neoplasm of colon Medical Ce [facility] (procedure) [code = 022971847] Future Scheduled 1972 Screening for malignant [facility] 00:00:00 neoplasm of colon [facility] Ce [facility] (procedure) [code = 019359168] Future Scheduled 1972 Screening for malignant [facility] 00:00:00 neoplasm of colon [facility] Ce [facility] (procedure) [code = 763548959] Future Scheduled 1972 Screening for malignant [facility] 00:00:00 neoplasm of colon [facility] (procedure) [code = 324306108] Future Scheduled 1972 S[facility]oidoscopy [facility]code = [facility]] [facility] Future Scheduled 1972 Screening for malignant [facility] 00:00:00 neoplasm of breast Medical [facility] (procedure) [code = 408006994] Future Scheduled 1972 CT Colonography (combo) [facility] 00:00:00 [code = [facility] ([facility])] Future Scheduled 1972 Screening for malignant [facility] 00:00:00 neoplasm of colon [facility] (procedure) [code = 051101028] Future Scheduled 1972 Screening for malignant [facility] 00:00:00 neoplasm of colon [facility] (procedure) [code = 752513524] Future Scheduled 1972 Screening for malignant [facility] 00:00:00 neoplasm of colon [facility] Ce [facility] (procedure) [code = 471649711] Future Scheduled 1972 Screening for malignant [facility] 00:00:00 neoplasm of colon [facility] (procedure) [code = 881551499] Future Scheduled 1972 S[facility]oidoscopy [facility]code = [facility]] [facility] Future Scheduled 1972 Screening for malignant [facility] 00:00:00 neoplasm of breast Medical [facility] (procedure) [code = 428406787] Future Scheduled 1972 CT Colonography (combo) [facility] 00:00:00 [code = [facility] ([facility] Future Scheduled 1972 Screening for malignant [facility] 00:00:00 neoplasm of colon [facility] (procedure) [code = 446426331] Future Scheduled 1972 Screening for malignant [facility] 00:00:00 neoplasm of colon [facility] Ce [facility] (procedure) [code = 055717882] Future Scheduled 1972 Screening for malignant [facility] 00:00:00 neoplasm of colon [facility] Ce [facility] (procedure) [code = 559935352] Future Scheduled 1972 Screening for malignant [facility] 00:00:00 neoplasm of colon [facility] Ce [facility] (procedure) [code = 688436341] Future Scheduled 1972 S[facility]oidoscopy [facility]code = [facility]] [facility] Future Scheduled 1972 Screening for malignant [facility] 00:00:00 neoplasm of breast Medical [facility] (procedure) [code = 523502459] Future Scheduled 1972 CT Colonography (combo) [facility] 00:00:00 [code = [facility] ([facility])] Future Scheduled 1972 Screening for malignant [facility] 00:00:00 neoplasm of colon Medical Ce [facility] (procedure) [code = 228969066] Future Scheduled 1972 Screening for malignant [facility] 00:00:00 neoplasm of colon Medical Ce [facility]ter (procedure) [code = 915264328] Future Scheduled 1972 Screening for malignant [facility] 00:00:00 neoplasm of colon Medical Ce [facility] (procedure) [code = 926540187] Future Scheduled 1972 Screening for malignant [facility] 00:00:00 neoplasm of colon Medical Ce [facility]ter (procedure) [code = 203012600] Future Scheduled 1972 S[facility]oidoscopy [code = [facility]] [facility] Future Scheduled 1972 Screening for malignant [facility] 00:00:00 neoplasm of breast Medical [facility] enter (procedure) [code = 494346875] Future Scheduled 1972 CT Colonography (combo) [facility] 00:00:00 [code = CT Colonography [facility] (combo)] Future Scheduled 1972 Screening for malignant [facility] 00:00:00 neoplasm of colon Medical Ce [facility] (procedure) [code = 171428870] Future Scheduled 1972 Screening for malignant [facility] 00:00:00 neoplasm of colon Medical Ce [facility] (procedure) [code = 421438720] Future Scheduled 1972 Screening for malignant [facility] 00:00:00 neoplasm of colon Medical Ce [facility] (procedure) [code = 721095892] Future Scheduled 1972 Screening for malignant [facility] 00:00:00 neoplasm of colon Medical Ce [facility] (procedure) [code = 521922773] Future Scheduled 1972 S[facility]oidoscopy [facility]code = [facility]] [facility] Future Scheduled 1972 Screening for malignant [facility] 00:00:00 neoplasm of breast Medical [facility] (procedure) [code = 465613266] Future Scheduled 1972 CT Colonography (combo) [facility] 00:00:00 [code = [facility] ([facility] Future Scheduled 1972 Screening for malignant [facility] 00:00:00 neoplasm of colon Medical [facility] (procedure) [code = 165953790] Future Scheduled 1972 Screening for malignant [facility] 00:00:00 neoplasm of colon [facility] Ce [facility] (procedure) [code = 226605692] Future Scheduled 1972 Screening for malignant [facility] 00:00:00 neoplasm of colon [facility] (procedure) [code = 867947115] Future Scheduled 1972 Screening for malignant [facility] 00:00:00 neoplasm of colon [facility] (procedure) [code = 405792504] Future Scheduled 1972 S[facility]oidoscopy [facility]code = [facility]] [facility] Future Scheduled 1972 Screening for malignant [facility] 00:00:00 neoplasm of breast Medical [facility] (procedure) [code = 750822939] Future Scheduled 1972 CT Colonography (combo) [facility] 00:00:00 [code = CT Colonography [facility] (combo)] Future Scheduled 1972 Screening for malignant [facility] 00:00:00 neoplasm of colon [facility] (procedure) [code = 672079135] Future Scheduled 1972 Screening for malignant [facility] 00:00:00 neoplasm of colon [facility] (procedure) [code = 392224179] Future Scheduled 1972 Screening for malignant [facility] 00:00:00 neoplasm of colon [facility] (procedure) [code = 593442676] Future Scheduled 1972 Screening for malignant [facility] 00:00:00 neoplasm of colon Medical Ce [facility] (procedure) [code = 089900428] Future Scheduled 1972 Sigmoidoscopy [facility]code = [facility]] [facility] Future Scheduled 1972 Screening for malignant [facility] 00:00:00 neoplasm of breast Medical [facility] (procedure) [code = 373806759] Future Scheduled 1972 CT Colonography (combo) [facility] 00:00:00 [code = [facility] Future Scheduled 1972 Screening for malignant [facility] 00:00:00 neoplasm of colon [facility] (procedure) [code = 591945645] Future Scheduled 1972 Screening for malignant [facility] 00:00:00 neoplasm of colon Medical Ce [facility] (procedure) [code = 751524452] Future Scheduled 1972 Screening for malignant [facility] 00:00:00 neoplasm of colon [facility] (procedure) [code = 864349002] Future Scheduled 1972 Screening for malignant [facility] 00:00:00 neoplasm of colon Medical Ce [facility] (procedure) [code = 971089612] Future Scheduled 1972 Sigmoidoscopy [facility]code = [facility]] [facility] Future Scheduled 1972 Screening for malignant [facility] 00:00:00 neoplasm of breast Medical [facility] enter (procedure) [code = 201783628] Future Scheduled 1972 CT Colonography (combo) [facility] 00:00:00 [code = [facility] ([facility] Future Scheduled 1972 Screening for malignant [facility] 00:00:00 neoplasm of colon [facility] Ce [facility] (procedure) [code = 400164381] Future Scheduled 1972 Screening for malignant [facility] 00:00:00 neoplasm of colon Medical Ce [facility] (procedure) [code = 159853358] Future Scheduled 1972 Screening for malignant [facility] 00:00:00 neoplasm of colon [facility] Ce [facility] (procedure) [code = 479734007] Future Scheduled 1972 Screening for malignant [facility] 00:00:00 neoplasm of colon Medical Ce [facility] (procedure) [code = 581798973] Future Scheduled 1972 Sigmoidoscopy [code = [facility]oscopy] Medical [facility] Future Scheduled 1972 Screening for malignant [facility] 00:00:00 neoplasm of breast Medical C enter (procedure) [code = 547426046] Future Scheduled 1972 CT Colonography (combo) [facility] 00:00:00 [code = [facility] ([facility] Future Scheduled 1972 Screening for malignant [facility] 00:00:00 neoplasm of colon Medical Ce [facility] (procedure) [code = 847692992] Future Scheduled 1972 Screening for malignant [facility] 00:00:00 neoplasm of colon Medical Ce [facility]ter (procedure) [code = 733147728] Future Scheduled 1972 Screening for malignant [facility] 00:00:00 neoplasm of colon Medical Ce [facility] (procedure) [code = 039547594] Future Scheduled 1972 Screening for malignant [facility] 00:00:00 neoplasm of colon Medical Ce [facility]ter (procedure) [code = 063555153] Future Scheduled 1972 Sigmoidoscopy [code = [facility] S[facility]oscopy] Medical [facility] Future Scheduled 1972 Screening for malignant [facility] 00:00:00 neoplasm of breast Medical C enter (procedure) [code = 044945226] Future Scheduled 1972 CT Colonography (combo) [facility] 00:00:00 [code = [facility] ([facility])] Future Scheduled 1972 Screening for malignant [facility] 00:00:00 neoplasm of colon Medical [facility] (procedure) [code = 060332407] Future Scheduled 1972 Screening for malignant [facility] 00:00:00 neoplasm of colon Medical Ce [facility] (procedure) [code = 589851846] Future Scheduled 1972 Screening for malignant [facility] 00:00:00 neoplasm of colon Medical Ce [facility] (procedure) [code = 598381053] Future Scheduled 1972 Screening for malignant [facility] 00:00:00 neoplasm of colon Medical Ce [facility]ter (procedure) [code = 426685717] Future Scheduled 1972 Sigmoidoscopy [code = [facility]] [facility] Future Scheduled 1972 Screening for malignant [facility] 00:00:00 neoplasm of breast Medical C enter (procedure) [code = 415441347] Future Scheduled 1972 CT Colonography (combo) [facility] 00:00:00 [code = [facility] ([facility])] Future Scheduled 1972 Screening for malignant [facility] 00:00:00 neoplasm of colon Medical Ce [facility] (procedure) [code = 849621239] Future Scheduled 1972 Screening for malignant [facility] 00:00:00 neoplasm of colon Medical Ce [facility] (procedure) [code = 531524381] Future Scheduled 1972 Screening for malignant [facility] 00:00:00 neoplasm of colon Medical Ce [facility] (procedure) [code = 338699977] Future Scheduled 1972 Screening for malignant [facility] 00:00:00 neoplasm of colon Medical Ce [facility] (procedure) [code = 876028001] Future Scheduled 1972 Sigmoidoscopy [code = [facility]] [facility] Future Scheduled 1972 Screening for malignant [facility] 00:00:00 neoplasm of breast Medical C enter (procedure) [code = 222273982] Future Scheduled 1972 CT Colonography (combo) [facility] 00:00:00 [code = CT [facility] ([facility])] Future Scheduled 1972 Screening for malignant [facility] 00:00:00 neoplasm of colon Medical Ce [facility] (procedure) [code = 303454489] Future Scheduled 1972 Screening for malignant [facility] 00:00:00 neoplasm of colon [facility] Ce [facility] (procedure) [code = 026023748] Future Scheduled 1972 Screening for malignant [facility] 00:00:00 neoplasm of colon Medical Ce nter (procedure) [code = 165545055] Future Scheduled 1972 Screening for malignant [facility] 00:00:00 neoplasm of colon Medical Ce nter (procedure) [code = 720524795] Future Scheduled 1972 Sigmoidoscopy [code = [facility]] Medical Cent[facility] r Future Scheduled 1972 Screening for malignant [facility] 00:00:00 neoplasm of breast Medical C enter (procedure) [code = 979387655] Future Scheduled 1972 CT Colonography (combo) [facility] 00:00:00 [code = CT [facility] ([facility])] Future Scheduled 1972 Screening for malignant [facility] 00:00:00 neoplasm of colon Medical Ce [facility]ter (procedure) [code = 953357327] Future Scheduled 1972 Screening for malignant [facility] 00:00:00 neoplasm of colon Medical Ce [facility] (procedure) [code = 506184206] Future Scheduled 1972 Screening for malignant [facility] 00:00:00 neoplasm of colon [facility] Ce [facility] (procedure) [code = 220085446] Future Scheduled 1972 Screening for malignant [facility] 00:00:00 neoplasm of colon Medical Ce [facility]ter (procedure) [code = 347957808] Future Scheduled 1972 Sigmoidoscopy [code = [facility]] Medical Cente r Future Scheduled 1972 Screening for malignant [facility] 00:00:00 neoplasm of breast Medical C enter (procedure) [code = 616779573] Future Scheduled 1972 CT Colonography (combo) [facility] 00:00:00 [code = CT [facility] ([facility])] Future Scheduled 1972 Screening for malignant [facility] 00:00:00 neoplasm of colon Medical Ce [facility]ter (procedure) [code = 258891809] Future Scheduled 1972 Screening for malignant [facility] 00:00:00 neoplasm of colon Medical Ce nter (procedure) [code = 818420763] Future Scheduled 1972 Screening for malignant [facility] 00:00:00 neoplasm of colon Medical Ce [facility]ter (procedure) [code = 001567328] Future Scheduled 1972 Screening for malignant [facility] 00:00:00 neoplasm of colon Medical Ce nter (procedure) [code = 115617088] Future Scheduled 1972 Sigmoidoscopy [code = [facility]oscopy] Medical Cente r Future Scheduled 1972 Screening for malignant [facility] 00:00:00 neoplasm of breast Medical C enter (procedure) [code = 852449174] Future Scheduled 1972 CT Colonography (combo) [facility] 00:00:00 [code = CT [facility])] Future Scheduled 1972 Screening for malignant [facility] 00:00:00 neoplasm of colon Medical Ce nter (procedure) [code = 696841454] Future Scheduled 1972 Screening for malignant [facility] 00:00:00 neoplasm of colon Medical Ce nter (procedure) [code = 409990110] Future Scheduled 1972 Screening for malignant [facility] 00:00:00 neoplasm of colon Medical Ce nter (procedure) [code = 665341446] Future Scheduled 1972 Screening for malignant [facility] 00:00:00 neoplasm of colon Medical Ce nter (procedure) [code = 890889998] Future Scheduled 1972 Sigmoidoscopy [code = [facility]oscopy] Medical Cente r Future Scheduled 1972 Screening for malignant [facility] 00:00:00 neoplasm of breast Medical C enter (procedure) [code = 662791182] Future Scheduled 1972 CT Colonography (combo) [facility] 00:00:00 [code = CT [facility])] Future Scheduled 1972 Screening for malignant [facility] 00:00:00 neoplasm of colon Medical Ce nter (procedure) [code = 190944848] Future Scheduled 1972 Screening for malignant [facility] 00:00:00 neoplasm of colon Medical Ce nter (procedure) [code = 046426882] Future Scheduled 1972 Screening for malignant [facility] 00:00:00 neoplasm of colon Medical Ce nter (procedure) [code = 445361100] Future Scheduled 1972 Screening for malignant [facility] 00:00:00 neoplasm of colon Medical Ce nter (procedure) [code = 828515189] Future Scheduled 1972 Sigmoidoscopy [code = [facility]oscopy] Medical [facility] Future Appointment 2023-06-01 Adam Garcia MD, [address] [facility] 07:30:[address]; Tal 9B, [place] [address] Future Appointment 2023-06-01 Adam Garcia MD, [address] [facility] 07:30:[address]; Tal 9B, [facility] [place] [address] Future Appointment 2023-06-01 Adam Garcia MD, [address] [facility] 07:30:[address]; Tal 9B, [facility] [place] [address] Future Appointment 2023-06-01 Adam Garcia MD, [address] [facility] 07:30:[address]; Tal 9B, [facility] [place] [address] Future Appointment 2023-05-28 Adam Garcia MD, [address] [facility] 08:15:[address]; Tal 9B, [facility] [place] [address] Future Appointment 2023-06-01 Adam Garcia MD, [address] [facility] 07:30:[address]; Tal 9B, [facility] [place] [address] Future Appointment 2023-06-01 Adam Garcia MD, [address] [facility] 07:30:[address]; Tal 9B, [facility] [place] [address] Future Appointment 2023-06-01 Adam Garcia MD, [address] [facility] 07:30:[address]; Tal 9B, [facility] [place] [address] Future Appointment 2023-06-01 Adam Garcia MD, [address] [facility] 07:30:[address]; Tal 9B, [place] [address] Future Appointment 2023-05-28 Adam Garcia MD, [address] [facility] 08:15:[address]; Tal 9B, [facility] [place] [address] Procedure 2023-06-01 LAMINECTOMY, SPINE, [facility] 07:[facility] Procedure 2023-06-01 PROCEDURE W/ [facility] 07:[facility]00 [facility] Procedure 2023-05-28 DISCECTOMY, SPINE, [facility] 08:15:00 CERVICAL, ANTERIOR Medical C enter APPROACH, WITH FUSION Procedure 2023-05-28 LAMINECTOMY, SP[facility], [facility] 08:15:[facility] LUMBAR, POSTERIOR Medical Ce nter APPROACH, WITH FUSION USING CAGE Procedure 2023-05-28 PROCEDURE, [facility]OGRAFT, [facility] 08:15[facility] SP[facility] SURGERY [facility] Procedure 2023-05-28 AUTOGRAFT [facility] SPINE [facility] 08:15:00 SURGERY [facility] Procedure 2023-05-28 PROCEDURE W/ C-ARM [facility] 08:15[facility]00 [facility] Procedure 2023-05-[address] [facility] 08:15:00 MONITORING, [facility] INTRAOPERATIVE Procedure 2023-05-28 PROCED[facility] 08:15:00 OPERATING MICROSCOPE [facility] Goal Plan of Care Note [code = 72411-9] Goal Plan of Care Note [code = 98088-8] Goal Plan of Care Note [code = 41992-3] Goal Plan of Care Note [code = 36107-4] Goal Plan of Care Note [code = 86242-6] Goal Plan of Care Note [code = 59567-9] Goal Plan of Care Note [code = 41591-5] Goal Plan of Care Note [code = 10354-0] Goal Plan of Care Note [code = 26028-6] Goal Plan of Care Note [code = 00835-6] Goal Plan of Care Note [code = 81046-8] Goal Plan of Care Note [code = 65302-9] Goal Plan of Care Note [code = 21236-4] Goal Plan of Care Note [code = 46920-8] Goal Plan of Care Note [code = 80085-5] Goal Plan of Care Note [code = 71829-2] Goal Plan of Care Note [code = 22673-2] Goal Plan of Care Note [code = 61380-4] Goal Plan of Care Note [code = 25871-4] Goal Plan of Care Note [code = 77762-3] Goal Plan of Care Note [code = 34332-3] Goal Plan of Care Note [code = 24797-2] Goal Plan of Care Note [code = 40722-7] Goal Plan of Care Note [code = 34735-9] Goal Plan of Care Note [code = 36514-6] Goal Plan of Care Note [code = 64645-0] Goal Plan of Care Note [code = 93995-0] Goal Plan of Care Note [code = 47429-6] Goal Plan of Care Note [code = 59894-3] Goal Plan of Care Note [code = 04714-4] Goal Plan of Care Note [code = 37321-5] Goal Plan of Care Note [code = 59843-6] Goal Plan of Care Note [code = 92422-7] Goal Plan of Care Note [code = 93264-0] Goal Plan of Care Note [code = 01301-5] Encounters Start End Encounter Admission Attending Care Care Encounter Source Date/Time Date/Time Type Type Clinicians Facility Department ID 2023-05-09 Outpatient ADAM GARCIA [facility] Surgery [id number] SLE 13:53:22 2023-05-08 Outpatient ADAM GARCIA [facility] Surgery [id number] SLEH 11:21:00 2023-04-01 Inpatient ER DEISI LOZOYA [facility] [id number] SLEH 14:26:29 MRINALINI 2023-03-31 Inpatient ER DEISI ALDRIDGE [facility] [id number] SLEH 09:24:52 MARIAH 2021-05-20 Emergency [facility] [id number] Univers 18:48:04 ity [facility] 2021-05-20 Emergency [facility] [id number] [facility]23-05-13 2023-05-13 Outpatient SFA BHARAT [id number] Adria 11:43:03 11:43:03 Kailey Martínez 2023-05-12 2023-05-[address] [facility] [id number] [facility] 00:00:00 00:00:[address] [facility] 2023-05-08 2023-05-08 Outpatient SFA BHARAT [id number] Adria 14:11:21 14:11:21 1020 F Mauricio 2023-03-29 2023-04-02 Inpatient ER DEVORA, SLE Neurology [id number] SLEH 19:25:00 20:48:00 [facility] 2023-03-29 2023-04-02 Hospital ER Connie Davey [facility] [id number] 19:25:00 20:48:00 [facility] 2023-03-31 2023-03-31 Inpatient ER LUIS CARLOS [facility] SLE [id number] SLEH 08:32:56 00:00:00 [facility] 2023-03-30 2023-03-30 Outpatient ER WAI, SLEH SLEH [id number] SLEH 10:24:12 23:59:00 [facility] 2023-03-30 2023-03-30 [facility], [facility] [id number] 09:40:00 23:59:00 Encounter [facility] 2023-03-30 2023-03-30 Outpatient ER LUIS CARLOS SLEH SLEH [id number] SLEH 13:46:20 13:46:20 [facility] 2023-03-30 2023-03-30 Outpatient ER LUIS CARLOS SLEH SLEH [id number] SLEH 13:46:14 13:46:14 [facility] 2023-03-30 2023-03-30 Outpatient ER WAI, SLEH SLEH [id number] SLEH 10:24:04 10:24:04 [facility] 2023-03-30 2023-03-[address] [facility] [id number] 00:00:00 00:00:00 Only [facility] 2023-03-30 2023-03-30 Travel [facility] [id number] [facility] 00:[facility] 00:00:00 [facility] 2022-12-11 2022-12-11 Emergency X Alfonso ALVARADO [facility] [id number] Univers 08:56:00 15:29[facility]00 [facility] 2022-12-11 2022-12-11 Emergency Alfonso Alvarado [facility] 1.2.840.114 [id number] Univers 08:56:00 15:29:00 Lorelei HERNANDEZ 350.1.13.10 i [place] [id number] [facility] [address] 2022-11-17 2022-11-18 Emergency X BRIANA, NCMB ERT [id number] Univers 17:25:00 01:19:00 RITCHIE najera of [facility] 2022-11-17 2022-11-18 Emergency Briana, [facility] 1.2.716.646 [id number] Univers 17:25:00 01:19:00 Ritchie Herbie HERNANDEZ 350.1.13.10 ity of [place] [id number] [facility] [address] 2022-08-28 2022-08-28 Patient Shy Beckman 1.2.840.114 10 [id number] Univers 00:00:00 00:00:00 Outreach E WALLACE 350.1.13.10 i [place] [id number] [facility] [address] 2022-08-20 2022-08-20 Patient Shy Beckman 1.2.840.114 10 [id number] Univers 00:00:00 00:00:00 Outreach E WALLACE 350.1.13.10 [place] [id number] [facility] [address] 2022-08-02 2022-08-[address] [facility] [id number] 17:30:00 14:29:00 [facility] 2022-08-02 2022-08-03 Outpatient ER CORRY, [facility] Neurology [id number] [facility] 17:30:00 14:29:00 [facility] 2022-08-03 2022-08-[address] [facility] [id number] 00:00:00 00:00:00 Only [facility] 2022-08-02 2022-08-02 Travel [facility] [id number] [facility] 00:00:00 00:00:00 [facility] 2022-07-31 2022-08-01 Inpatient X [facility] [id number] Univers 11:42:00 21:48:00 LORENZA ity of [facility] 2022-07-31 2022-08-01 [facility] Sav Rondon [facility] 1.2.840.1 14 [id number] Univers 11:42:00 21:48:00 Encounter Pablitocarolinaандрей Lorenza [place] 350.1.13.10 it[facility] [place]2.7.[place] [facility] [id number] [facility] [address] 2022-08-01 2022-08-01 Transition BLAYNE Nicole 1.2.840.114 [id number] Univers 00:00:00 00:00:00 of Care Maria Teresa WALLACE 350.1.13.10 ity of [place] 4.2.7.2.686 [facility] [id number] [facility] [address] 2022-07-28 2022-07-28 Outpatient SFA SFA [id number] Adria 14:41:38 14:41:38 0109 F Mauricio 2022-07-28 2022-07-28 Outpatient [id number]- [id number] 3d [id number] 00:00:00 00:00:00 Visit [id number] -2bu2-3ph fa1-9db46d [id number] 537df0 2022-07-24 2022-07-24 Outpatient SFA SFA [id number] Adria 13:24:40 13:24:40 0105 F Mauricio 2022-05-23 2022-05-23 Outpatient SFA SFA [id number] Adria 14:51:01 14:51:01 1104 F Mauricio 2022-05-23 2022-05-23 Outpatient [id number]- [id number] f9 kana30-l 00:00:00 00:00:00 Visit b23u-9sv6 62f-4bb7-b -w23d-6t6 [id number] 7850ee 2022-05-04 2022-05-08 Outpatient X CHANTEL MATTHEWS [facility] [place] [id number] Univers 20:22:00 14:44:00 CHANTEL MATTHEWS ity [facility] 2022-05-04 2022-05-08 Emergency Brandyn Ibrahim 1.2.840.1 14 [id number] Univers 20:22:00 14:44:00 Chantel Matthews 350.1.13 .10 ity of [facility] 4.2.7.2.686 [facility] as [id number] [place] [id number] Branch 2022-04-13 2022-04-15 Inpatient X [facility] [id number] Univers 13:06:00 15:00:00 [facility] ity [facility] 2022-04-13 2022-04-15 Hospital Sapna Vargas 1.2.84 0.114 [id number] Univers 13:06:00 15:00:00 Encounter Ladan Sarahrajat Katz MORAGA 350. 1.13.10 ity of [facility] 4.2.7.2.686 [place] [id number] [facility] [address] 2022-02-19 2022-02-19 Imm/Inj Vaccine, [facility] KENDRICK KE 1.2.840.114 [id number] Univers 10:20:00 10:30:00 Visit Jose Pak 350.1.13.10 ity [place] [facility] [id number] [facility] [address] 2022-02-19 2022-02-19 Outpatient R JOSE PAK [facility] [id number] Univers 10:20:00 10:20:00 ity [facility] 2021-11-23 2021-11-23 Emergency X ESTEFANY [facility] ERT [id number] Univers 15:07:00 17:03:00 NICHELLE ity [facility] 2021-11-23 2021-11-23 Emergency Sav Rondon [facility] 1.2.840. 114 [id number] Univers 15:07:00 17:03:00 Nichelle Virk 350.1.13. 10 ity of [place] 4.2.7.2.686 [facility] [id number] [facility] [address] 2021-11-21 2021-11-21 Outpatient R [facility] [id number] Univers 09:40:00 09:40:00 ity of [facility] 2021-05-24 2021-05-24 Outpatient R JOSE PAK [facility] [id number] Univers 09:30:00 09:30:00 ity of [facility] 2021-05-24 2021-05-24 Imm/Inj Vaccine, [facility] [place] 1.2.840.114 [id number] Univers 08:47:51 08:57:51 Visit Jose Pak [place] 350.1.13.10 it[place] [facility] [id number] [facility] [address] 2021-05-03 2021-05-03 Outpatient R JOSE PAK [facility] [id number] Univers 09:40:00 09:59:35 ity of [facility] 2021-05-03 2021-05-03 Imm/Inj Vaccine, [facility] [place] 1.2.840.114 [id number] Univers 09:17:43 09:59:35 Visit Jose Pak Carl[place] 350.1.13.10 [place] [facility] [id number] [facility] [address] 2021-04-16 2021-04-16 Orders Doctor THEODORE 1.2.840.114 [id number] Univers 00:00:00 00:00:00 Only Unassigned, [place] 350.1.13.10 ity of [place] [facility] 4.2.7.2.686 [facility] [id number] [facility] [address] 2021-03-17 2021-03-17 Telephone EWELINA Nava 1.2.919.611 [id number] Univers 00:00:00 00:00:00 Aneatrice HO[place] 350.1.13.10 ity of [facility] 4.2.7.2.686 Javier as [id number] [address] 2021-03-16 2021-03-16 Emergency Palmer, [facility] 1.2.840.114 [id number] Univers 20:08:00 23:24:00 Fabrice Julio Cesar 350.1.13.10 i ty of [place] [id number] [address] 2021-03-14 2021-03-14 Urgent Lydia Desouza [facility] 1.2.840.114 [id number] Univers 18:59:34 20:19:13 Care Unknown, Attending Health 350.1.13.10 ity [facility] 4.2.7.2.686 Javier as Prem?Blea [id number] [address] Medical Office Building 2021-03-14 2021-03-14 Outpatient R UNKNOWN, [facility] [id number] Univers 19:00:00 19:00:00 ATTENDING ity [facility] 2021-02-19 2021-02-19 [facility] 1.2.522.868 [id number] Univers 10:49:00 14:48:00 Anali Hernandez 350.1.13.10 i ty [place] [id number] [address] 2019-03-09 2019-03-09 [facility] 1.2.840.114 [id number] 00:00:00 00:00:00 Yehuda Hernandez 350.1.13.10 [place] 4.2.7.2.686 Professio [id number] [address] 2019-03-09 2019-03-09 [facility] 1.2.840.114 [id number] Univers 00:00:00 00:00:00 Yehuda Hernandez 350.1.13.10 ity [facility] [place] [id number] [address] Results Test Description Test Time Test Comments Results Result Comments Source CULTURE, URINE 2023-05-15 SPECIMEN NUMBER: 09:28:30 [id number] CULTURE, URINE SPECIMEN NUMBER: [id number] SPECIMEN COMMENT: URINE SOURCE: URINE REPORT STATUS: FINAL FINAL REPORT: 05/15/2023 >100,000 CFU/ML UROGENITAL REBEL PRESENT NO COMMON PATHOGENS UNLESS OTHERWISE INDICATED, ALL TESTING PERFORMED AT [facility] [address] [place] [address] DIRECTOR MULTIPLE SCLEROSIS CENTER: JANNY STEINER M.D. [place] NUMBER [id number] [place]. [id number] CULTURE, URINE 2023-05-13 SPECIMEN NUMBER: 12:02:50 [id number] CULTURE, URINE SPECIMEN NUMBER: [id number] SOURCE: URINE REPORT STATUS: FINAL FINAL REPORT: 05/13/2023 NO SPECIMEN RECEIVED FOR TESTING. CHARGES DELETED. BASIC METABOLIC PANEL 2023-05-09 04:48:43 Test Item Value Reference Range Interpretation Comme nts GLUCOSE (test code = 2217) 117 MG/DL 70-99 H BUN (test code = 2208) 20 MG/DL 6-20 CREATININE (test code = 2214) 0.83 MG/DL 0.60-1.30 eGFR (2020 CKD-EPI) (test code = 98219) 85 ML/MIN/1.73 >60 SODIUM (test code = 2231) 141 MEQ/L 133-146 POTASSIUM (test code = 2228) 3.6 MEQ/L 3.5-5.4 CHLORIDE (test code = 2215) 97 MEQ/L 95-107 CARBON DIOXIDE (test code = 2206) 26 MEQ/L 19-31 CALCIUM (test code = 2209) 10.4 MG/DL 8.5-10.5 PROTHROMBIN TIME (PT)2023-05-09 02:52:41 Test Item Value Reference Range Interpretation Comments PROTHROMBIN TIME 12.7 SECONDS 12.5-14.7 (PT) (test code = 1402) INR (test code = 0.9 SEE BELOW CURRENT 68416) RECOMMENDATIONS ARE FOR AN INR OF 2 .0-3.0 FOR ALL PATIENT S ON VITAMIN K ANTAG ONISTS, EXCEPT THOSE WI TH PROSTHETIC HEAR T VALVES, FOR WHO M INR OF 2.5-3.5 IS RECOMMENDED. UN LESS OTHERWISE INDIC ATED, ALL TESTING PER FORMED AT [facility] [employer], I [place]. [address] [place] [address] [facility] MARTHA DIRECTOR: David DICKERSON HANNAH NUMBER [id number] CAP ACCREDITATION N O. [id number] CBC W/AUTO DIFF WITH [id number] 01:54:17 Test Item Value Reference Range Interpretation Comments WBC (test code = 13.4 K/UL 3.5-11.0 H 1001) RBC (test code = 5.38 M/UL 3.80-5.40 1002) HEMOGLOBIN (test code 15.5 G/DL 11.5-15.5 = 1003) HEMATOCRIT (test code 48.0 % 34.0-45.0 H = 1004) MCV (test code = 89.2 fL 80.0-99.0 1005) MCH (test code = 28.8 PG 25.0-33.0 1006) MCHC (test code = 32.3 G/DL 31.0-36.0 1007) RDW (test code = 16.8 % 11.5-15.0 H 1038) NEUTROPHILS (test 81.7 % code = 1008) LYMPHOCYTES (test 10.8 % code = 1010) MONOCYTES (test code 5.9 % = 1011) EOSINOPHILS (test 0.2 % code = 1012) BASOPHILS (test code 0.3 % = 1013) IMMATURE GRANULOCYTES 1.1 % (test code = 1036) NUCLEATED RBCS (test 0.0 /100 WBC'S See_Comment [Aut omated code = 1065) message] The sy stem which generated this result transmitted reference range : 0.0. The refere nce range was not u sed to interpret th is result as normal/abnormal . PLATELET COUNT (test 523 K/UL 130-400 H code = 1015) ABSOLUTE NEUTROPHILS 10.92 K/UL 1.50-7.50 H (test code = 1066) ABSOLUTE LYMPHOCYTES 1.45 K/UL 1.00-4.00 (test code = 1067) ABSOLUTE MONOCYTES 0.79 K/UL 0.20-1.00 (test code = 1068) ABSOLUTE EOSINOPHILS 0.03 K/UL 0.00-0.50 (test code = 1040) ABSOLUTE BASOPHILS 0.04 K/UL 0.00-0.20 (test code = 1069) ABS IMMATURE 0.15 K/UL 0.00-0.10 H GRANULOCYTES (test code = 1020) ABS NUCLEATED RBCS 0.00 K/UL 0.00-0.11 (test code = 38022) XR CHEST 1 VIEW PORTABLE / [id number] 15:39:07 [facility] : 1970 Sex: FTECHNIQUE: Frontal view of the chest.INDICATION: CHf.COMPARISON: None.FINDINGS:LINES/TUBES: None.HEART AND MEDIASTINUM: Cardiomediastinal contour is within normallimits. LUNGS: The lungs are well inflated and clear. No consolidation orpulmonary edema.PLEURA: No pneumothorax. No significant pleural effusion.SOFT TISSUES AND BONES: Cervical spinal fixation hardware is noted.IMPRESSION:No acute cardiopulm onary process.Electronically Signed By: Jose Carlos Lebron04/01/2023 15:41 CDTWorkstation Name: [id number] NATRIURETIC FACTOR (BNP)2023-04-01 14:15:07 Test Item Value Reference Range Interpretation Comments B-TYPE NATRIURETIC PEPTIDE (BEAKER) 192 pg/mL 0-100 H (test code = 700) [employer] Administrator ID - ADMINMR CERVICAL SPINE WITHOUT IV [id number] 11:30:35 [facility] : 1970 Sex: FMRI cervical [...] prior C4-C7 anterior cervical fusion.Electronically Signed By: Mxaim Sultana03/31/2023 11:32 CDTWorkstation Name: [id number] METABOLIC [id number] 04:43:14 Test Item Value Reference Range Interpretation [...] not appl icable for dialysis patien ts [employer] Systems Administrator ID Yarelis CORREA WCBC (HEMOGRAM ONLY)2023-03-31 04:20:07 Test Item Value [...] = 413) MR THORACIC SPINE WITHOUT IV [id number] 12:50:50 [facility] : 1970 Sex: FMR THORACIC [...] abnormality. T10-11 moderate right neural foraminal stenosis [id number] moderate bilateral foraminal stenosis due to facet [...] Signed By: Ryan Buckley03/30/2023 12:52 CDTWorkstation Name: [id number] LUMBAR SPINE WITHOUT IV [id number] 12:33:57 [facility] : 1970 Sex: FMR LUMBAR SPINE WITHOUT IV CONTRASTINDICATION: Unlisted Reason for ExamConcern for cord compressionCOMPARISON: NoneTECHNIQUE: Multiplanar, multisequence MR images of the lumbar spinewithout contrast. FINDINGS: For the purposes of this dictation, the 5 lowermost iczyid-slneokyudlbbk-nujb vertebral bodies are labeled L1- L5.Alignment of the lumbar spine is within normal limits. Vertebral body height is maintained. Bone marrow edema is seen at the inferior L3 and superior L4 vertebralbodies and bilateralL4 pedicles, favored to be degenerative in nature.Suggestion of a synovial cyst at the right [id number] (series 301image eight).No spinal cord signal abnormality [...] flavum buckling versus synovial cyst at the lgwnrG26-O10 level (series 301 image eight). MRI thoracic spine can beconsidered for further evaluation.7. Mild clumping of the cauda equina nerve roots, which is nonspecificbut may represent arachnoiditis. Postcontrast imaging can be consideredfor further evaluation.Electronically Signed By: Maxim Sultana03/30/2023 12:36 CDTWorkstation Name: [id number] 11:45:01 Test Item Value Reference Range Interpretation Comments HEMOGLOBIN A1C 5.7 % See_Comment H [Automated essage] ELECTROPHORESIS ([facility]) The system which (test code = 3811) generated this result transmitted ref erence range: <=5.6%. The reference range was not used to int erpret this result as normal/abnormal . "The A1c is measured using a NGSP-certified method. HbA1c value equal to or greater than 6.5% as thediagnosis cutoff for diabetes. An HbA1c value of 5.7- 6.4% indicates increased risk for diabetes (prediabetes)."[employer] Network Systems Administrator ID - ADM VALPROIC ACID LEVEL, [id number] 09:42:31 Test Item Value Reference Range Interpretation Comments VALPROIC ACID TOTAL (Essence Group HoldingsAKER) (test 76 ug/mL 50-100 code = 924) Therapeutic range for some clinical conditions may be >100 ug/mLUrinalysis w/Microscopic + Reflex to [id number] 08:43:51 Test Item Value Reference Range Interpretation Comments Color, UA (test code Yellow = 5778-6) Clarity, UA (test Clear code = 5767-9) Specific [place], UA 1.033 1.001-1.035 (test code = 5811-5) pH, UA (test code = 6.0 5.0-8.0 5803-2) Protein, UA (test 30 mg/dL Negative A code = 18073-2) Glucose, UA (test Negative Negative code = 365) Ketones, UA (test Negative Negative code = 2514-8) Bilirubin, UA (test Negative Negative code = 49004-5) Blood, UA (test code Small Negative A = 70080-2) Nitrite, UA (test Negative Negative code = 5802-4) Leukocytes, UA (test Negative Negative code = 5799-2) Urobilinogen, UA 0.2 0.2-1.0 (test code = 56800-8) RBC, UA (test code = 51 See_Comment [Autom ated 20635-6) message] The system which generated this result [...] UA See_Comment [Automate d (test code = 05969-7) messag e] The system which generated this result transmitted reference range : /HPF. The reference range was not used to interpret this result as normal/abnormal . Specimen Source (test code = 2795) LYNDSAY (test code = LYNDSAY) [employer] Systems Administrator ID - [auto][employer] Network Systems Administrator ID - tech Lab Interpretation Abnormal (test code = 44591-4) [facility] Culture 2023-03-30 08:43:51 Test Item Value Reference Range Interpretation Comments Color, UA (test code Yellow = 5778-6) Clarity, UA (test Clear code = 5767-9) Specific [place], UA 1.033 1.001-1.035 (test code = 5811-5) pH, UA (test code = 6.0 5.0-8.0 5803-2) Protein, UA (test 30 mg/dL Negative A code = 23143-7) Glucose, UA (test Negative Negative code = 365) Ketones, UA (test Negative Negative code = 2514-8) Bilirubin, UA (test Negative Negative code = 67308-1) Blood, UA (test code Small Negative A = 12137-5) Nitrite, UA (test Negative Negative code = 5802-4) Leukocytes, UA (test Negative Negative code = 5799-2) Urobilinogen, UA 0.2 0.2-1.0 (test code = 15213-9) RBC, UA (test code = 51 See_Comment [Autom ated 65486-4) message] The system which generated this result [...] UA See_Comment [Automate d (test code = 87715-8) messag e] The system which generated this result transmitted reference range : /HPF. The reference range was not used to interpret this result as normal/abnormal . Specimen Source (test code = 2795) LYNDSAY (test code = LYNDSAY) [employer] Systems Administrator ID - [auto][employer] Systems Administrator ID - tech Lab Interpretation Abnormal (test code = 92050-3) [facility] Reflex [facility] Culture 2023-03-30 08:43:51 Test Item Value Reference Range Interpretation Comments Color, UA (test code Yellow = 5778-6) Clarity, UA (test Clear code = 5767-9) Specific [place], UA 1.033 1.001-1.035 (test code = 5811-5) pH, UA (test code = 6.0 5.0-8.0 5803-2) Protein, UA (test 30 mg/dL Negative A code = 97669-6) Glucose, UA (test Negative Negative code = 365) Ketones, UA (test Negative Negative code = 2514-8) Bilirubin, UA (test Negative Negative code = 35236-6) Blood, UA (test code Small Negative A = 01144-5) Nitrite, UA (test Negative Negative code = 5802-4) Leukocytes, UA (test Negative Negative code = 5799-2) Urobilinogen, UA 0.2 0.2-1.0 (test code = 36491-9) RBC, UA (test code = 51 See_Comment [Autom ated 62356-2) message] The system which generated this result [...] UA See_Comment [Automate d (test code = 56856-7) messag e] The system which generated this result transmitted reference range : /HPF. The reference range was not used to interpret this result as normal/abnormal . Specimen Source (test code = 2795) LYNDSAY (test code = LYNDSAY) [employer] Systems Administrator ID - [auto][employer] Systems Administrator ID - tech Lab Interpretation Abnormal (test code = 97331-9) [facility] Reflex [facility] Culture 2023-03-30 08:43:51 Test Item Value Reference Range Interpretation Comments Color, UA (test code Yellow = 5778-6) Clarity, UA (test Clear code = 5767-9) Specific [place], UA 1.033 1.001-1.035 (test code = 5811-5) pH, UA (test code = 6.0 5.0-8.0 5803-2) Protein, UA (test 30 mg/dL Negative A code = 83510-2) Glucose, UA (test Negative Negative code = 365) Ketones, UA (test Negative Negative code = 2514-8) Bilirubin, UA (test Negative Negative code = 98838-5) Blood, UA (test code Small Negative A = 97995-0) Nitrite, UA (test Negative Negative code = 5802-4) Leukocytes, UA (test Negative Negative code = 5799-2) Urobilinogen, UA 0.2 0.2-1.0 (test code = 63023-4) RBC, UA (test code = 51 See_Comment [Autom ated 59879-3) message] The system which generated this result [...] UA See_Comment [Automate d (test code = 86652-2) messag e] The system which generated this result transmitted reference range : /HPF. The reference range was not used to interpret this result as normal/abnormal . Specimen Source (test code = 2795) LYNDSAY (test code = LYNDSAY) [employer] Administrator ID - [auto][employer] Systems Administrator ID - tech Lab Interpretation Abnormal (test code = 43004-6) [facility] Reflex to Culture 2023-03-30 08:43:51 Test Item Value Reference Range Interpretation Comments Color, UA (test code Yellow = 5778-6) Clarity, UA (test Clear code = 5767-9) Specific [place], UA 1.033 1.001-1.035 (test code = 5811-5) pH, UA (test code = 6.0 5.0-8.0 5803-2) Protein, UA (test 30 mg/dL Negative A code = 65565-5) Glucose, UA (test Negative Negative code = 365) Ketones, UA (test Negative Negative code = 2514-8) Bilirubin, UA (test Negative Negative code = 33571-3) Blood, UA (test code Small Negative A = 41414-8) Nitrite, UA (test Negative Negative code = 5802-4) Leukocytes, UA (test Negative Negative code = 5799-2) Urobilinogen, UA 0.2 0.2-1.0 (test code = 25218-8) RBC, UA (test code = 51 See_Comment [Autom ated 24231-2) message] The system which generated this result [...] UA See_Comment [Automate d (test code = 94946-4) messag e] The system which generated this result transmitted reference range : /HPF. The reference range was not used to interpret this result as normal/abnormal . Specimen Source (test code = 2795) LYNDSAY (test code = LYNDSAY) [employer] Administrator ID - [auto][employer] Systems Administrator ID - tech Lab Interpretation Abnormal (test code = 64189-4) [facility] Reflex [facility] Culture 2023-03-30 08:43:51 Test Item Value Reference Range Interpretation Comments Color, UA (test code Yellow = 5778-6) Clarity, UA (test Clear code = 5767-9) Specific [place], UA 1.033 1.001-1.035 (test code = 5811-5) pH, UA (test code = 6.0 5.0-8.0 5803-2) Protein, UA (test 30 mg/dL Negative A code = 90376-4) Glucose, UA (test Negative Negative code = 365) Ketones, UA (test Negative Negative code = 2514-8) Bilirubin, UA (test Negative Negative code = 78581-4) Blood, UA (test code Small Negative A = 96365-7) Nitrite, UA (test Negative Negative code = 5802-4) Leukocytes, UA (test Negative Negative code = 5799-2) Urobilinogen, UA 0.2 0.2-1.0 (test code = 67438-6) RBC, UA (test code = 51 See_Comment [Autom ated 00596-5) message] The system which generated this result [...] UA See_Comment [Automate d (test code = 83114-9) hirenag e] The system which generated this result transmitted reference range : /HPF. The reference range was not used to interpret this result as normal/abnormal . Specimen Source (test code = 2795) LYNDSAY (test code = LYNDSAY) [employer] Administrator ID - [auto][employer] Systems Administrator ID - tech Lab Interpretation Abnormal (test code = 30643-0) [facility] UR[facility] [id number] 08:43:51 Test Item Value Reference Range Interpretation [...] = 516) SOURCE(BEAKER) (test code = 2795) [employer] Systems Administrator ID - [auto][employer] Systems Administrator ID - techCOMPREHENSIVE METABOLIC [id number] 04:37:29 Test Item Value Reference Range Interpretation [...] not appl icable for dialysis patien ts [employer] Systems Administrator ID - MATT BPT/CQRF8045-70-94 04:30:17 Test Item Value Reference Range Interpretation [...] WBC 0-0 (BEAKER) (test code = 413) [id number] 17:14:06 Test Item Value Reference Range Interpretation Comments MAGNESIUM (test code = 6439817255) 1.9 mg/dL 1.7-2.4 Lab Interpretation (test code = Normal 53856-6) [facility]. METABOLIC PANEL (52475)2022-12-11 15:16:25 Test Item Value Reference Range Interpretation Comments NA (test code = 139 mmol/L 135-145 7845758566) K (test code = 3.5 mmol/L 3.5-5.0 3318059090) CL (test code = 107 mmol/L 98-108 0960024856) CO2 TOTAL (test code = 24 mmol/L 23-31 0770211309) AGAP (test code = 8 2-16 1929334392) BUN (test code = 9 mg/dL 7-23 9148722490) GLUCOSE (test code = 129 mg/dL 70-110 H 8564271554) CREATININE (test code = 0.68 mg/dL 0.50-1.04 8334118920) TOTAL BILI (test code = 0.5 mg/dL 0.1-1.0 5799895737) CALCIUM (test code = 8.9 mg/dL 8.6-10.6 5595513617) T PROTEIN (test code = 6.3 g/dL 6.3-8.2 7697471393) ALBUMIN (test code = 3.8 g/dL 3.5-5.0 0358996670) ALK PHOS (test code = 87 U/L 34-122 9975675203) ALTv (test code = 24 U/L 5-35 1742-6) AST(SGOT) (test code = 21 U/L 13-40 6790364150) eGFR (test code = 91.6 mL/min/1.73m2 8851023553) LYNDSAY (test code = LYNDSAY) Association of [...] tests). Lab Interpretation Abnormal (test code = 68845-5) [facility] [id number] 15:10:45 Test Item Value Reference Range Interpretation Comments TROPONIN I (test code = 0.015 ng/mL <=0.034 9559384488) LYNDSAY (test code = LYNDSAY) Reference (Normal) [...] biotin. Lab Interpretation Normal (test code = 89825-4) [facility] [id number] 15:07:48 Test Item Value Reference Range Interpretation Comments NT-proBNP (test code = 1460 pg/mL <=125 H 8280344838) LYNDSAY (test code = LYNDSAY) Biotin has been reported to cause a negative bias, interpret results relative to patient's use of biotin. Lab Interpretation (test Abnormal code = 73070-0) [facility] CenterD-[id number] 14:45:24 Test Item Value Reference Interpretation Comments Range D-DIMER (test code = 0.99 See_Comment H [Autom ated 8536038337) message] The system which generated this result [...] diagnosis. Lab Interpretation Abnormal (test code = 33280-8) [facility] WITH [id number] 14:14:48 Test Item Value Reference Range Interpretation Comments WBC (test code = 7.86 See_Comment [Automated 7132-2) message] The sy stem which generated this result transmitted reference range : 4.30 - 11.10 10*3/?L. The reference range was not used to interpret this result as normal/abnormal . RBC (test code = 5.13 See_Comment [Automated 396-8) message] The sy stem which generated this [...] RDW-SD (test code = 47.8 fL 39.0-49.9 19705-6) RDW-CV (test code = 16.9 % 12.0-15.5 H 788-0) PLT (test code = 507 See_Comment H [Automated 777-3) message] The sy stem which generated this result transmitted reference range : 166 - 358 10*3/ ?L. The reference r zoe was not used to interpret this result as normal/abnormal . MPV (test code = 8.2 fL 9.5-12.9 L 23069-2) NRBC/100 WBC (test 0.0 See_Comment [Automat ed code = 4545329661) message] The system which generated this result transmitted reference range : 0.0 - 10.0 /100 WBCs. The refer ence range was not u sed to interpret th is result as normal/abnormal . NRBC x10^3 (test code See_Comment [Auto mated = 9400518757) message] The s ystem which generated this result transmitted reference range : 10*3/?L. The reference range was not used to interpret this result as normal/abnormal . GRAN MAT (NEUT) % 64.5 % (test code = 770-8) IMM GRAN % (test code 0.30 % = 8198953778) LYMPH % (test code = 25.6 % 736-9) MONO % (test code = 7.5 % 5905-5) EOS % (test code = 1.0 % 713-8) BASO % (test code = 1.1 % 706-2) GRAN MAT x10^3(ANC) 5.07 10*3/uL 1.88-7.09 (test code = 4749219723) IMM GRAN x10^3 (test 0.00-0.06 code = 9465323078) LYMPH x10^3 (test code 2.01 10*3/uL 1.32-3.29 = 731-0) MONO x10^3 (test code 0.59 10*3/uL 0.33-0.92 = 742-7) EOS x10^3 (test code = 0.08 10*3/uL 0.03-0.39 711-2) BASO x10^3 (test code 0.09 10*3/uL 0.01-0.07 H = 704-7) Lab Interpretation Abnormal (test code = 74461-5) [facility] Center[facility]PR[facility] 13:17:22 Test Item Value Reference Range Interpretation Comments RPR SCREEN ([facility]) (test code = Nonreactive Nonreactive 420) HEMOGLOBIN [id number] 10:39:49 Test Item Value Reference Range Interpretation Comments HEMOGLOBIN A1C 5.8 % See_Comment H [Automated m essage] ELECTROPHORESIS ([facility]) The system which (test code = 3811) generated this result transmitted ref erence range: <=5.6%. The reference range was not used to int erpret this result as normal/abnormal . "The A1c is measured using a [facility]-certified method. HbA1c value equal to or greater than 6.5% as thediagnosis cutoff for diabetes. An HbA1c value of 5.7- 6.4% indicates increased risk for diabetes (prediabetes)."[employer] Systems Administrator ID - ADM VITAMIN [id number] 22:48:27 Test Item Value Reference Range Interpretation Comments VITAMIN B12 ([facility]) (test code = 227 pg/mL 213-816 774) [employer] Systems Administrator ID - MARCOTSH/FREE T4 IF [id number] 22:08:28 Test Item Value Reference Range Interpretation Comments THYROID STIMULATING HORMONE 3.309 uIU/mL 0.350-4.940 ([employer]) (test code = 772) [employer] Systems Administrator ID - JSHIV-1 ANTIGEN WITH HIV-1/2 [id number] 22:08:28 Test Item Value Reference Range Interpretation Comments HIV-1 ANTIGEN WITH HIV 1\\T\\2 Nonreactive Nonreactive ANTIBODY (2) ([employer]) (test code = 2586) [employer] Administrator ID - JSC-REACTIVE [id number] 21:49:44 Test Item Value Reference Range Interpretation Comments C-REACTIVE PROTEIN ([facility]) (test 0.35 mg/dL 0.00-0.50 code = 676) [employer] Systems Administrator ID - JSCOMPREHENSIVE METABOLIC [id number] 21:49:43 Test Item Value Reference Range Interpretation Comments TOTAL PROTEIN 7.1 gm/dL 6.0-8.3 ([employer] [facility]) (test code = 770) ALBUMIN (AKER) 4.2 g/dL 3.5-5.0 (test code = 1145) ALKALINE 74 U/L 40-150 PHOSPHATASE ([employer]) (test code = 346) BILIRUBIN TOTAL 0.3 [...] not appl icable for dialysis patien ts [employer] Systems Administrator ID - JSLIPID [id number] 21:49:43 Test Item Value Reference Range Interpretation [...] Borderline 130-159 High 160-189 Very High >=190 [employer] Administrator ID - JSCBC W/PLT COUNT & AUTO [id number] 21:34:03 Test Item Value Reference Range Interpretation [...] Interpretation Comments Height (test code = in 0383899237) Weight (test code = lbs 6101108978) Systolic BP (test code = mmHg 9789844157) Diastolic BP (test code mmHg = 8140506812) Heart Rate (test code = bpm 0720760749) BSA (test code = 2.00 m2 3270688721) Ao root diam (test code 3.20 cm = 0912269499) Aortic root (test code = 3.2 cm 5351406252) Ao root annulus (test 3.2 cm code = 0227910283) LVOT diameter (test code 1.99 cm = 9620988857) LVOT area (test code = 3.10 cm2 4490567584) LVIDD (test code = 5.10 cm 4108365753) Left Ventricular End 123.0 mL Diastolic Volume by Teichholz Method (test code = 3275201) IVS (test code = 1.34 cm 9448771526) Interventricular Septum 1.34 cm Diastolic Thickness by 2D (test code = 2270579) LVPWD (test code = 1.34 cm 2393220841) PW (test code = 1.34 cm 0.6-1.0 7935512193) EF(Teich) (test code = 41.80 % 4622541650) LVIDS (test code = 4.00 cm 3554203901) Left Ventricular End 71.5 mL Systolic Volume by Teichholz Method (test code = 3513168) FS (test code = 21 % 0182496693) EF - 2D (test code = 41.80 % 78248952) LA size (test code = 4.6 cm 9706191750) Pulmonic Regurgitant End 119.4 cm/s Max Velocity (test code = 9999069757) LAV(MOD-sp4) (test code 95.00 mL = 6461108410) E wave decelartion time 0.15 s (test code = 6564909608) MV stenosis pressure 1/2 45.6 ms time (test code = 0172753616) MV Peak A Evette (test code 123.8 cm/s = 7888224539) MV Peak E Evette (test code 109.7 cm/s = 5777415622) E/A ratio (test code = ratio 5547689291) MR max PG (test code = 87.20 mm[Hg] 7104394734) MR max evette (test code = 466.90 cm/s 8025955466) Mr max evette (test code = 466.9 m/s 3426421217) MV Prop V (test code = 51.00 cm/s 8877703529) MV E/e' septal (test 8.1 cm/s code = 8750350979) Tapse (test code = 2.21 cm 5709152651) LVOT stroke volume (test 49.80 cm3 code = 5499025700) LVOT peak evette (test code 89.1 cm/s = 0854887456) LVOT mn grad (test code mmHg = 9996749846) AV LVOT peak gradient mmHg (test code = 8295876279) LVOT peak VTI (test code 16.0 cm = 5412157175) LV V1 mean (test code = 64.30 cm/s 5690130306) Aortic valve mean 133.8 cm/s velocity (test code = 3715781557) Ao peak evette (test code = 175.3 cm/s 8035655856) Ao VTI (test code = 32.2 cm 5275767747) AV area by cont VTI 1.6 cm2 (test code = 4887898604) AV area peak evette (test 1.6 cm2 code = 2406443952) Ao max PG (test code = 12.30 mm[Hg] 0457784874) AV peak gradient (test mmHg code = 0423961982) AV valve area (test code 1.55 cm2 = 2942913815) AV mean gradient (test mmHg code = 2488400200) AV regurgitation 358.5 ms pressure 1/2 time (test code = 9625610690) AI dec slope (test code 364.20 cm/s2 = 7439625481) AI max evette (test code = 445.80 cm/s 1002653327) AI max PG (test code = 79.50 mm[Hg] 7013388277) Radiology Study observation (narrative) (test code = 75076-0) LYNDSAY (test code = LYNDSAY) ?Left?Ventricle: Left [...] mL of Lumason ultrasound enhancing agent used. [facility]2022-08-01 10:43:32 Test Item Value Reference Range Interpretation Comments POCT GLU (test code = 8197117012) 148 mg/dL 70-110 H Lab Interpretation (test code = Abnormal 79774-1) [facility] CenterACTIVATED PARTIAL THRMPLAS [id number] 18:39:45 Test Item Value Reference Range Interpretation Comments APTT Patient (test See_Comment [Automat ed code = 3173-2) message] The system which generated this result transmitted reference range : 23 - 38 Seconds . The reference range was not used to interpr et this result as normal/abnormal . LYNDSAY (test code = LYNDSAY) The [facility] patient population mean normal value for aPTT is 30 seconds. Lab Interpretation Normal (test code = 81161-2) [facility] CenterPROTHROMBIN TIME / [id number] 18:37:42 Test Item Value Reference Range Interpretation [...] tions. Lab Interpretation (test Normal code = 33728-5) [facility] CenterTR[facility]IN [id number] 18:32:01 Test Item Value Reference Interpretation Comments Range TROPONIN I (test 0.019 ng/mL See_Comment [Automated code = 9251635439) message] The system which generated this result [...] biotin. Lab Interpretation Normal (test code = 99525-9) [facility] CenterN-[facility]MINAL [id number] 18:29:01 Test Item Value Reference Range Interpretation Comments NT-proBNP (test code 2770 pg/mL See_Comment H [Autom ated = 1429114950) message] The system which generated this result transmitted reference range : <=125. The reference range was not used to interpret this result as normal/abnormal . LYNDSAY (test code = LYNDSAY) Biotin has been reported to cause a negative bias, interpret results relative to patient's use of biotin. Lab Interpretation Abnormal (test code = 72401-4) [facility]. METABOLIC PANEL (48696)2022-07-31 18:21:42 Test Item Value Reference Range Interpretation Comments NA (test code = 136 mmol/L 135-145 9771248445) K (test code = 4.6 mmol/L 3.5-5.0 1154350905) CL (test code = 104 mmol/L 98-108 6266699748) CO2 TOTAL (test code = 26 mmol/L 23-31 3052736275) AGAP (test code = 2-16 5582989816) BUN (test code = 9 mg/dL 7-23 7429016865) GLUCOSE (test code = 97 mg/dL 70-110 5400181194) CREATININE (test code = 0.64 mg/dL 0.50-1.04 8177623784) TOTAL BILI (test code = 0.5 mg/dL 0.1-1.1 9155157152) CALCIUM (test code = 8.2 mg/dL 8.6-10.6 L 5552867005) T PROTEIN (test code = 6.5 g/dL 6.3-8.2 1206164370) ALBUMIN (test code = 3.9 g/dL 3.5-5.0 7458960371) ALK PHOS (test code = 93 U/L 34-122 3471692953) ALTv (test code = 18 U/L 5-35 1742-6) AST(SGOT) (test code = 19 U/L 13-40 5995887807) eGFR (test code = mL/min/1.73m2 8368503286) LYNDSAY (test code = LYNDSAY) Association of [...] tests). Lab Interpretation Abnormal (test code = 18863-2) [facility] CenterLIPASE2023-01-12 18:21:01 Test Item Value Reference Range Interpretation Comments LIPASE (test code = 6175345322) 54 U/L 0-220 Lab Interpretation (test code = Normal 11664-4) [facility] CenterCB WITH [id number] 18:07:00 Test Item Value Reference Range Interpretation Comments WBC (test code = See_Comment [Automated 3356-2) message] The sy stem which generated this result transmitted reference range : 4.30 - 11.10 10*3/?L. The reference range was not used to interpret this result as normal/abnormal . RBC (test code = See_Comment [Automated 119-1) message] The sy stem which generated this [...] (test code = 53.1 fL 39.0-49.9 H 58992-8) RDW-CV (test code = 17.0 % 12.0-15.5 H 788-0) PLT (test code = See_Comment H [Automated 777-3) message] The sy stem which generated this result transmitted reference range : 166 - 358 10*3/ ?L. The reference r zoe was not used to interpret this result as normal/abnormal . MPV (test code = 8.2 fL 9.5-12.9 L 59659-0) NRBC/100 WBC (test See_Comment [Automat ed code = 0462929942) message] The system which generated this result transmitted reference range : 0.0 - 10.0 /100 WBCs. The refer ence range was not u sed to interpret th is result as normal/abnormal . NRBC x10^3 (test code See_Comment [Auto mated = 6351949943) message] The s ystem which generated this result transmitted reference range : 10*3/?L. The reference range was not used to interpret this result as normal/abnormal . GRAN MAT (NEUT) % 64.0 % (test code = 770-8) IMM GRAN % (test code 0.40 % = 3200792021) LYMPH % (test code = 27.3 % 736-9) MONO % (test code = 6.5 % 5905-5) EOS % (test code = 1.1 % 713-8) BASO % (test code = 0.7 % 706-2) GRAN MAT x10^3(ANC) 5.46 10*3/uL 1.88-7.09 (test code = 7737523550) IMM GRAN x10^3 (test 0.03 10*3/uL 0.00-0.06 code = 4813621022) LYMPH x10^3 (test code 2.32 10*3/uL 1.32-3.29 = 731-0) MONO x10^3 (test code 0.55 10*3/uL 0.33-0.92 = 742-7) EOS x10^3 (test code = 0.09 10*3/uL 0.03-0.39 711-2) BASO x10^3 (test code 0.06 10*3/uL 0.01-0.07 = 704-7) Lab Interpretation Abnormal (test code = 71989-9) [facility] METABOLIC PANEL (NA, K, CL, CO2, GLUCOSE, BUN, CREATININE, CA)2022-05-08 06:37:01 Test Item Value Reference Range Interpretation Comments NA (test code = 137 mmol/L 135-145 7475603420) K (test code = 3.8 mmol/L 3.5-5 7574083208) CL (test code = 103 mmol/L 98-108 7813006704) CO2 TOTAL (test code = 24 mmol/L 23-31 4058128686) AGAP (test code = 2-16 0540537408) BUN (test code = 13 mg/dL 7-23 2863803888) GLUCOSE (test code = 90 mg/dL 70-110 8243316288) CREATININE (test code = 0.69 mg/dL 0.5-1.04 9618705103) CALCIUM (test code = 8.5 mg/dL 8.6-10.6 L 3097274982) eGFR (test code = mL/min/1.73m2 1852654256) LYNDSAY (test code = LYNDSAY) Association of [...] tests). Lab Interpretation Abnormal (test code = 56620-6) [facility] 06:37:01 Test Item Value Reference Range Interpretation Comments MAGNESIUM (test code = 9075995723) 2.1 mg/dL 1.7-2.4 Lab Interpretation (test code = Normal 24626-4) [facility]PHOSPHORUS2022-10-20 06:37:01 Test Item Value Reference Range Interpretation Comments PHOSPHORUS (test code = 8167813005) 4.7 mg/dL 2.5-5 Lab Interpretation (test code = Normal 34047-6) [facility] CenterCB WITH [id number] 06:11:54 Test Item Value Reference Range Interpretation Comments WBC (test code = See_Comment [Automated 4134-2) message] The sy stem which generated this result transmitted reference range : 4.30 - 11.10 10*3/?L. The reference range was not used to interpret this result as normal/abnormal . RBC (test code = See_Comment [Automated 479-8) message] The sy stem which generated this [...] (test code = 51.0 fL 39-49.9 H 77653-7) RDW-CV (test code = 16.5 % 12-15.5 H 788-0) PLT (test code = See_Comment H [Automated 777-3) message] The sy stem which generated this result transmitted reference range : 166 - 358 10*3/ ?L. The reference r zoe was not used to interpret this result as normal/abnormal . MPV (test code = 8.3 fL 9.5-12.9 L 71261-9) NRBC/100 WBC (test See_Comment [Automat ed code = 4868006917) message] The system which generated this result transmitted reference range : 0.0 - 10.0 /100 WBCs. The refer ence range was not u sed to interpret th is result as normal/abnormal . NRBC x10^3 (test code See_Comment [Auto mated = 4684973101) message] The s ystem which generated this result transmitted reference range : 10*3/?L. The reference range was not used to interpret this result as normal/abnormal . GRAN MAT (NEUT) % 64.5 % (test code = 770-8) IMM GRAN % (test code 0.50 % = 1118002176) LYMPH % (test code = 27.1 % 736-9) MONO % (test code = 6.6 % 5905-5) EOS % (test code = 0.6 % 713-8) BASO % (test code = 0.7 % 706-2) GRAN MAT x10^3(ANC) 5.28 10*3/uL 1.88-7.09 (test code = 4993007571) IMM GRAN x10^3 (test 0.04 10*3/uL 0-0.06 code = 7482746271) LYMPH x10^3 (test code 2.22 10*3/uL 1.32-3.29 = 731-0) MONO x10^3 (test code 0.54 10*3/uL 0.33-0.92 = 742-7) EOS x10^3 (test code = 0.05 10*3/uL 0.03-0.39 711-2) BASO x10^3 (test code 0.06 10*3/uL 0.01-0.07 = 704-7) Lab Interpretation Abnormal (test code = 90919-4) [facility] ([facility]ATED)2022-05-07 01:18:10 Test Item Value Reference Range Interpretation Comments POCT GLU (test code = 1429924203) 120 mg/dL 70-110 H Lab Interpretation (test code = Abnormal 18657-1) [facility] CenterType and Screen - ONCE [id number] 05:46:35 Test Item Value Reference Range Interpretation Comments ABO & RH (test code O POSITIVE Performe d at [facility] = 20) Laboratory Serv [facility] Blood [facility] s [id number] Free: [phone] A No. [id number] IAT (test code = Negative Performed a t [facility] 1185) Laboratory Serv [facility] Blood [facility] s [id number] Free: [phone] A No. [id number] [facility] CenterBASIC METABOLIC PANEL (NA, K, CL, CO2, GLUCOSE, BUN, CREATININE, CA)2022-05-05 08:22:57 Test Item Value Reference Range Interpretation Comments NA (test code = 136 mmol/L 135-145 4064180180) K (test code = 4.9 mmol/L 3.5-5 4914376409) CL (test code = 108 mmol/L 98-108 6807856017) CO2 TOTAL (test code = 22 mmol/L 23-31 L 3845983291) AGAP (test code = 2-16 8000836824) BUN (test code = 12 mg/dL 7-23 6330715905) GLUCOSE (test code = 155 mg/dL 70-110 H 8677449049) CREATININE (test code = 0.63 mg/dL 0.5-1.04 1259303928) CALCIUM (test code = 8.4 mg/dL 8.6-10.6 L 9657146866) eGFR (test code = mL/min/1.73m2 3589371701) LYNDSAY (test code = LYNDSAY) Association of [...] tests). Lab Interpretation Abnormal (test code = 92227-3) [facility] CenterPROTHROMBIN TIME / [id number] 08:22:37 Test Item Value Reference Range Interpretation Comments PROTIME PATIENT (test See_Comment [Auto mated message] code = 5964-2) The system [employer] generated this result transmitted ref erence range: 10.1 - 1 2.6 Seconds. The re ference range was not u sed to interpret this result as normal/abnor mal. INR (test code = 6301-6) Nor mal INR <1.1; Warfarin Therap eutic range 2.0 to 3. 0 or 2.5 to 3.5, dep ending upon the indica tions. Lab Interpretation (test Normal code = 32674-1) [facility] CenteraPTT2022-10-17 08:22:37 Test Item Value Reference Range Interpretation Comments APTT Patient (test code = See_Comment [ Automated message] 3173-2) The system whic h generated this result transmitted ref erence range: 26 - 36 Seconds. The re ference range was not u sed to interpret this result as normal/abnor mal. Lab Interpretation (test Normal code = 15044-2) [facility] CenterFIBRINOGEN2022-10-17 08:22:37 Test Item Value Reference Range Interpretation Comments Fibrinogen (test code = 1585292558) 294 mg/dL 167-453 Lab Interpretation (test code = Normal 44450-7) [facility] CenterCB WITH [id number] 08:15:01 Test Item Value Reference Range Interpretation Comments WBC (test code = See_Comment [Automated 2990-2) message] The sy stem which generated this [...] (test code = 52.9 fL 39-49.9 H 39374-1) RDW-CV (test code = 16.8 % 12-15.5 H 788-0) PLT (test code = See_Comment H [Automated 777-3) message] The sy stem which generated this result transmitted reference range : 166 - 358 10*3/ ?L. The reference r zoe was not used to interpret this result as normal/abnormal . MPV (test code = 8.3 fL 9.5-12.9 L 70459-9) NRBC/100 WBC (test See_Comment [Automat ed code = 5181436541) message] The system which generated this result transmitted reference range : 0.0 - 10.0 /100 WBCs. The refer ence range was not u sed to interpret th is result as normal/abnormal . NRBC x10^3 (test code See_Comment [Auto mated = 9689180271) message] The s ystem which generated this result transmitted reference range : 10*3/?L. The reference range was not used to interpret this result as normal/abnormal . GRAN MAT (NEUT) % 86.4 % (test code = 770-8) IMM GRAN % (test code 0.40 % = 6550930475) LYMPH % (test code = 11.7 % 736-9) MONO % (test code = 1.1 % 5905-5) EOS % (test code = 0.0 % 713-8) BASO % (test code = 0.4 % 706-2) GRAN MAT x10^3(ANC) 6.36 10*3/uL 1.88-7.09 (test code = 7710715708) IMM GRAN x10^3 (test 0.03 10*3/uL 0-0.06 code = 3865207397) LYMPH x10^3 (test code 0.86 10*3/uL 1.32-3.29 L = 731-0) MONO x10^3 (test code 0.08 10*3/uL 0.33-0.92 L = 742-7) EOS x10^3 (test code = 0.03-0.39 L 711-2) BASO x10^3 (test code 0.03 10*3/uL 0.01-0.07 = 704-7) Lab Interpretation Abnormal (test code = 07357-7) [facility] CenterVITAMIN D, [id number] 20:14:03 Test Item Value Reference Range Interpretation Comments VIT D 25OH (test code = 22 ng/mL 25-80 L 42741-0) LYNDSAY (test code = LYNDSAY) Deficiency: <20 ng/mLInsufficiency: 20-24 ng/mLOptimal: 25-80 ng/mL Lab Interpretation (test Abnormal code = 56084-2) [facility] METABOLIC PANEL (NA, K, CL, CO2, GLUCOSE, BUN, CREATININE, CA)2022-04-15 11:27:57 Test Item Value Reference Range Interpretation Comments NA (test code = 138 mmol/L 135-145 7213094977) K (test code = 3.9 mmol/L 3.5-5 2404851639) CL (test code = 106 mmol/L 98-108 6054089599) CO2 TOTAL (test code = 23 mmol/L 23-31 1451146262) AGAP (test code = 2-16 9152830073) BUN (test code = 10 mg/dL 7-23 2381406090) GLUCOSE (test code = 91 mg/dL 70-110 9235430869) CREATININE (test code = 0.65 mg/dL 0.5-1.04 5534411964) CALCIUM (test code = 8.1 mg/dL 8.6-10.6 L 6648079249) eGFR (test code = mL/min/1.73m2 0242436958) LYNDSAY (test code = LYNDSAY) Association of [...] tests). Lab Interpretation Abnormal (test code = 23803-1) [facility] Protocol - Transthoracic echo (TTE) 2022-04-14 22:07:33 Test Item Value Reference Range Interpretation Comments Height (test code = in 6061676795) Weight (test code = lbs 5680429192) Systolic BP (test code = mmHg 1220170421) Diastolic BP (test code mmHg = 2516843400) Heart Rate (test code = bpm 0131357357) BSA (test code = 1.94 m2 4791488421) TASV (test code = 15.5 cm/s 8752100362) LVIDD (test code = 6.00 cm 0119595983) Left Ventricular End 183.0 mL Diastolic Volume by Teichholz Method (test code = 7240480) IVS (test code = 1.09 cm 1739183723) Interventricular Septum 1.09 cm Diastolic Thickness by 2D (test code = 1531902) LVPWD (test code = 0.94 cm 5066751558) PW (test code = 0.94 cm 0.6-1.2 5132284663) EF(Teich) (test code = 40.30 % 7997745379) LVIDS (test code = 4.80 cm 9279023722) Left Ventricular End 109.2 mL Systolic Volume by Teichholz Method (test code = 4516169) FS (test code = 20 % 6349059021) EF - 2D (test code = 40.30 % 24977948) LVOT diameter (test code 2.05 cm = 8370542367) LVOT area (test code = 3.30 cm2 7655928743) Ao root diam (test code 3.10 cm = 3366757382) Aortic root (test code = 3.1 cm 8684645232) Ao root annulus (test 3.1 cm code = 9556879580) LA size (test code = 4.2 cm 3864194554) LAV(MOD-sp4) (test code 64.90 mL = 1455273756) MV Peak A Evette (test code 115.7 cm/s = 8447997410) E wave decelartion time 0.15 s (test code = 7471922163) MV Peak E Evette (test code 106.2 cm/s = 6451123629) E/A ratio (test code = ratio 8478357314) LVOT stroke volume (test 48.30 cm3 code = 8959451804) LVOT peak evette (test code 78.4 cm/s = 0690885582) LVOT mn grad (test code mmHg = 7662525035) AV LVOT peak gradient mmHg (test code = 4489479166) LVOT peak VTI (test code 14.7 cm = 5432750578) LV V1 mean (test code = 51.40 cm/s 4362199151) Ao peak evette (test code = 154.7 cm/s 6989053016) AV area peak evette (test 1.7 cm2 code = 5387176172) Ao max PG (test code = 9.60 mm[Hg] 9883958847) AV peak gradient (test mmHg code = 9083549676) AV regurgitation 257.3 ms pressure 1/2 time (test code = 2665422930) AI dec slope (test code 498.10 cm/s2 = 5097296012) AI max evette (test code = 437.60 cm/s 1677335768) AI max PG (test code = 77.80 mm[Hg] 4162995574) Tapse (test code = 2.19 cm 4051142335) LA Volume Index (BP) 32.0 mL/m2 (test code = 2407712676) LA volume (BP) (test 62.1 mL code = 1061391338) LAV(MOD-sp2) (test code 52.70 mL = 9096636868) A4C EF (test code = 44.80 % 9140032910) EF(sp4-el) (test code = 45.20 % 5691871311) SV(MOD-sp4) (test code = 71.20 mL 6173115345) SV(sp4-el) (test code = 73.90 mL 5234818323) LV Diastolic Volume (BP) 146.3 mL (test code = 9956489117) A2C EF (test code = 52.00 % 8641700268) EF(MOD-bp) (test code = 46.70 % 4659391234) EF(sp2-el) (test code = 52.40 % 3578318647) LV Systolic Volume (BP) 77.9 mL (test code = 7386501783) SV(MOD-bp) (test code = 68.40 mL 8159156229) SV(MOD-sp2) (test code = 69.20 mL 9103365390) EF (test code = 3662625944) Left Ventricular Stroke 68.4 mL Volume by 2-D Biplane-MOD (test code = 6679408) Radiology Study observation (narrative) (test code = 13752-6) LYNDSAY (test code = LYNDSAY) ?Left?Ventricle: Left [...] agent used and saline contrast was performed. [facility] CenterKEPPRA (LEVETIRACETAM)2022-04-14 16:48:36 Test Item Value Reference Range Interpretation Comments KEPPRA (test code = 12-46 L 4307246309) LYNDSAY (test code = LYNDSAY) Therapeutic range: 12-46 ?g/mL ? ?Toxic: Not well established.Test developed and characteristics determined by [facility] Laboratory Services. Lab Interpretation Abnormal (test code = 70135-7) [facility] Metabolic Panel (Na, K, Cl, CO2, Glucose, BUN, Creatinine, Ca)2022-04-14 10:50:11 Test Item Value Reference Range Interpretation Comments NA (test code = 136 mmol/L 135-145 7139312451) K (test code = 3.8 mmol/L 3.5-5 7079948711) CL (test code = 105 mmol/L 98-108 1297579938) CO2 TOTAL (test code = 25 mmol/L 23-31 7413698768) AGAP (test code = 2-16 8575867410) BUN (test code = 9 mg/dL 7-23 4376063231) GLUCOSE (test code = 101 mg/dL 70-110 6090082667) CREATININE (test code = 0.66 mg/dL 0.5-1.04 3380450703) CALCIUM (test code = 8.1 mg/dL 8.6-10.6 L 0273071232) eGFR (test code = mL/min/1.73m2 3844551823) LYNDSAY (test code = LYNDSAY) Association of [...] tests). Lab Interpretation Abnormal (test code = 08396-9) [facility] CenterMagensium, [id number] 10:50:11 Test Item Value Reference Range Interpretation Comments MAGNESIUM (test code = 8030583361) 1.9 mg/dL 1.7-2.4 Lab Interpretation (test code = Normal 03785-7) [facility] CenterThyroid Stimulating [id number] 22:21:44 Test Item Value Reference Range Interpretation Comments TSH (test code = See_Comment Biotin has been 6958984539) reported to cau se a negative bias, interpret resul ts relative to autumn garcia's use of biotin. [Automated mess age] The system [employer] generated this result transmitted ref erence range: 0.45 - 4 .70 mIU/L. The refe rence range was not u sed to interpret this result as normal/abnor mal. Lab Interpretation (test Normal code = 28251-6) [facility] CenterGLYCOSYLATED HEMOGLOBIN (A1C)2022-04-13 21:53:43 Test Item Value Reference Range Interpretation Comments HGB A1C (test code = 5.8 % 4-5.7 H 4548-4) LYNDSAY (test code = LYNDSAY) Reference RangesNormal: <5.7%Prediabetes: 5.7 - 6.4%Diabetes: > 6.5% Lab Interpretation (test Abnormal code = 28959-6) [facility]FA[facility] LIP[facility] (63742)(TOTAL CHOLESTEROL, TRIGLYCERIDES, HDL)2022-04-13 21:34:53 Test Item Value Reference Range Interpretation Comments CHOL (test code = 201 mg/dL 120-200 H 3659174401) HDL (test code = 56 mg/dL See_Comment [Automated message] 3359683686) The system [employer] generated this result transmit sherice reference range : >=50. The refer ence range was not u sed to interpret th is result as normal/abnormal . HDLC RATIO (test code = See_Comment [Au tomated message] 4202112553) The system [employer] generated this result transmit sherice reference range : <=4.5. The refe rence range was not u sed to interpret th is result as normal/abnormal . TRIG (test code = 355 mg/dL 30-170 H 1962776334) LDL CHOL (test code = 74 mg/dL See_Comment [Auto mated message] 83211-2) The system [employer] generated this result transmit sherice reference range : <=160. The refe rence range was not u sed to interpret th is result as normal/abnormal . VLDL (test code = 71 mg/dL 5-60 H 9869706432) Lab Interpretation (test Abnormal code = 67101-0) [facility] CenterTroponin I - Code [id number] 18:46:27 Test Item Value Reference Interpretation Comments Range TROPONIN I (test 0.013 ng/mL See_Comment [Automated code = 4044251779) message] The system which generated this result [...] biotin. Lab Interpretation Normal (test code = 41960-3) [facility] CenterBal[facility] (NA, K, CL, CO2, Glucose, BUN, Creatinine, CA) - Code [id number] 18:35:07 Test Item Value Reference Range Interpretation Comments NA (test code = 136 mmol/L 135-145 9915751331) K (test code = 4.3 mmol/L 3.5-5 1291015505) CL (test code = 105 mmol/L 98-108 8439353795) CO2 TOTAL (test code = 27 mmol/L 23-31 5383621004) AGAP (test code = 2-16 0256644179) BUN (test code = 8 mg/dL 7-23 8188465472) GLUCOSE (test code = 130 mg/dL 70-110 H 4199011677) CREATININE (test code = 0.75 mg/dL 0.5-1.04 2947303145) CALCIUM (test code = 8.5 mg/dL 8.6-10.6 L 7020069864) eGFR (test code = mL/min/1.73m2 5341880928) LYNDSAY (test code = LYNDSAY) Association of [...] tests). Lab Interpretation Abnormal (test code = 76194-8) [facility] CenteraPTT - Code [id number] 18:32:46 Test Item Value Reference Range Interpretation Comments APTT Patient (test See_Comment [Automat ed code = 3173-2) message] The system which generated this result transmitted reference range : 23 - 38 Seconds . The reference range was not used to interpr et this result as normal/abnormal . LYNDSAY (test code = LYNDSAY) The [facility] patient population mean normal value for aPTT is 30 seconds. Lab Interpretation Normal (test code = 74113-3) [facility] CenterProthrombin Time / INR - Code [id number] 18:30:45 Test Item Value Reference Range Interpretation Comments PROTIME PATIENT (test See_Comment [Auto mated message] code = 5964-2) The system [employer] generated this result transmitted ref erence range: 12.0 - 1 4.7 Seconds. The re ference range was not u sed to interpret this result as normal/abnor mal. INR (test code = 6301-6) Nor mal INR <1.1; Warfarin Therap eutic range 2.0 to 3. 0 or 2.5 to 3.5, dep ending upon the indica tions. Lab Interpretation (test Normal code = 16493-1) [facility] CenterCBC without Diff - Code [id number] 18:23:07 Test Item Value Reference Range Interpretation Comments WBC (test code = 6690-2) See_Comment [A utomated message] The system [employer] generated this result transmit sherice reference range : 4.30 - 11.10 10*3/?L. The reference range was not used to interpret this result as normal/abnormal . RBC (test code = 789-8) See_Comment [Au tomated message] The system [employer] generated this result transmit sherice reference [...] See_Comment H [Au tomated message] The system [facility] [employer] generated this result transmit sherice reference range : 166 - 358 10*3/?L. The reference range was not used to interpret this result as normal/abnormal . MPV (test code = 8.1 fL 9.5-12.9 L 86634-1) RDW-CV (test code = 16.1 % 12-15.5 H 788-0) RDW-SD (test code = 49.2 fL 39-49.9 93459-9) NRBC x10^3 (test code = See_Comment [Au tomated message] 0379587217) The system [employer] generated this result transmit sherice reference range : 10*3/?L. The reference range was not used to interpret this result as normal/abnormal . NRBC/100 WBC (test code See_Comment [Au tomated message] = 6926438401) The system [facility] generated this result transmit sherice reference range : 0.0 - 10.0 /100 WBC s. The reference r zoe was not used to interpret this result as normal/abnormal . IPF % (test code = 4234437591) Lab Interpretation (test Abnormal code = 25636-0) [facility] CenterTRSPARTANBURG MEDICAL CENTEREYADN [id number] 21:06:40 Test Item Value Reference Interpretation Comments Range TROPONIN I (test 0.005 ng/mL See_Comment [Automated code = 4335472486) message] The system which generated this result [...] biotin. Lab Interpretation Normal (test code = 55878-7) [facility]. METABOLIC PANEL (83650)2021-11-23 20:55:42 Test Item Value Reference Range Interpretation Comments NA (test code = 137 mmol/L 135-145 8679532744) K (test code = 4.3 mmol/L 3.5-5.0 8016822400) CL (test code = 104 mmol/L 98-108 4595470953) CO2 TOTAL (test code = 22 mmol/L 23-31 L 3750849863) AGAP (test code = 2-16 0040888481) BUN (test code = 15 mg/dL 7-23 2288006268) GLUCOSE (test code = 114 mg/dL 70-110 H 2618192450) CREATININE (test code = 0.68 mg/dL 0.50-1.04 1371193420) TOTAL BILI (test code = 0.5 mg/dL 0.1-1.5 5938008510) CALCIUM (test code = 9.1 mg/dL 8.6-10.6 6906094455) T PROTEIN (test code = 7.3 g/dL 6.3-8.2 2696355220) ALBUMIN (test code = 4.4 g/dL 3.5-5.0 3880545909) ALK PHOS (test code = 243 U/L 34-122 H 8155262085) ALTv (test code = 24 U/L 5-35 1742-6) AST(SGOT) (test code = 30 U/L 13-40 3717901003) eGFR (test code = mL/min/1.73m2 7430563594) LYNDSAY (test code = LYNDSAY) Association of [...] tests). Lab Interpretation Abnormal (test code = 16807-2) [facility] CenterLIPASE2022-05-07 20:55:22 Test Item Value Reference Range Interpretation Comments LIPASE (test code = 4980831804) 96 U/L 0-220 Lab Interpretation (test code = Normal 40971-1) [facility] CenterPOCT [id number] 20:46:00 Test Item Value Reference Range Interpretation Comments POCT PREG (test code = 1605) negative On board controls acceptable with present C Line (test code = 3574) POCT PREG LOT # (test code = 3575) [id number] POCT PREG TEST DATE (test 04/18/2023 code = 3576) Lab Interpretation (test code = Normal 60081-2) [facility] CenterCB WITH [id number] 20:40:38 Test Item Value Reference Range Interpretation Comments WBC (test code = See_Comment [Automated 4290-2) message] The sy stem which generated this [...] (test code = 53.7 fL 39.0-49.9 H 47232-3) RDW-CV (test code = 17.2 % 12.0-15.5 H 788-0) PLT (test code = See_Comment H [Automated 777-3) message] The sy stem which generated this result transmitted reference range : 166 - 358 10*3/ ?L. The reference r zoe was not used to interpret this result as normal/abnormal . MPV (test code = 8.5 fL 9.5-12.9 L 35963-0) NRBC/100 WBC (test See_Comment [Automat ed code = 2130984713) message] The system which generated this result transmitted reference range : 0.0 - 10.0 /100 WBCs. The refer ence range was not u sed to interpret th is result as normal/abnormal . NRBC x10^3 (test code <0.01 See_Comment [Auto mated = 6144776883) message] The s ystem which generated this result transmitted reference range : 10*3/?L. The reference range was not used to interpret this result as normal/abnormal . GRAN MAT (NEUT) % 53.7 % (test code = 770-8) IMM GRAN % (test code 0.90 % = 9975803185) LYMPH % (test code = 32.6 % 736-9) MONO % (test code = 10.1 % 5905-5) EOS % (test code = 1.5 % 713-8) BASO % (test code = 1.2 % 706-2) GRAN MAT x10^3(ANC) 4.98 10*3/uL 1.88-7.09 (test code = 3164923559) IMM GRAN x10^3 (test 0.08 10*3/uL 0.00-0.06 H code = 7907831113) LYMPH x10^3 (test code 3.02 10*3/uL 1.32-3.29 = 731-0) MONO x10^3 (test code 0.94 10*3/uL 0.33-0.92 H = 742-7) EOS x10^3 (test code = 0.14 10*3/uL 0.03-0.39 711-2) BASO x10^3 (test code 0.11 10*3/uL 0.01-0.07 H = 704-7) Lab Interpretation Abnormal (test code = 79031-8) [facility] CenterPOKY GLUCOSE (AUTOMATED)2021-11-23 20:17:33 Test Item Value Reference Range Interpretation Comments POCT GLU (test code = 111 mg/dL 70-110 H Notifi ed Provider 7280553937) Lab Interpretation (test Abnormal code = 90428-4) [facility] TEST, THINPREP, [id number] 00:00:00 Test Item Value Reference Range Interpretation Comments SOURCE: (test code = Endocervical 1) SLIDES: (test code = 1 8011) LMP: (test code = 8021) 06/03/2021 SPECIMEN ADEQUACY: (test (NOTE) code = 02401) INTERPRETATION: (test ASCUS/EPITH. code = 59700) ABNORMALITY; SEE BELOW HUMAN RESOURCES SUPERVISOR: (test Anusha code = 8101) CHANA Sepulveda(ASCP)IAC PATHOLOGIST Nahid Russell, INTERPRETATION BY: (test M.D. code = 8122) LOCATION: (test code = (NOTE) 25852) CPT: (test code = 8140) (NOTE) PAP TEST, THINPREP, [id number] 00:00:00 Test Item Value Reference Range Interpretation Comments SOURCE: (test code = Endocervical 8001) SLIDES: (test code = 1 8011) LMP: (test code = 8021) 06/03/2021 SPECIMEN ADEQUACY: (test (NOTE) code = 94896) INTERPRETATION: (test ASCUS/EPITH. code = 61637) ABNORMALITY; SEE BELOW HUMAN RESOURCES SUPERVISOR: (test Anusha code = 8101) CHANA Sepulveda(ASCP)[facility] PATHOLOGIST Nahid Russell, INTERPRETATION BY: (test M.D. code = 8122) LOCATION: (test code = (NOTE) 70300) CPT: (test code = 8140) (NOTE) PAP TEST, THINPREP, [id number] 00:00:00 Test Item Value Reference Range Interpretation Comments SOURCE: (test code = Endocervical 8001) SLIDES: (test code = 1 8011) LMP: (test code = 8021) 06/03/2021 SPECIMEN ADEQUACY: (test (NOTE) code = 89691) INTERPRETATION: (test ASCUS/EPITH. code = 92334) ABNORMALITY; SEE BELOW HUMAN RESOURCES SUPERVISOR: (test Anusha code = 8101) CHANA Sepulveda(ASCP)[facility] PATHOLOGIST Nahid Russell, INTERPRETATION BY: (test M.D. code = 8122) LOCATION: (test code = (NOTE) 43548) CPT: (test code = 8140) (NOTE) PAP TEST, THINPREP, [id number] 00:00:00 Test Item Value Reference Range Interpretation Comments SOURCE: (test code = Endocervical 8001) SLIDES: (test code = 1 8011) LMP: (test code = 8021) 06/03/2021 SPECIMEN ADEQUACY: (test (NOTE) code = 22026) INTERPRETATION: (test ASCUS/EPITH. code = 88798) ABNORMALITY; SEE BELOW HUMAN RESOURCES SUPERVISOR: (test Anusha code = 8101) CHANA Sepulveda(ASCP)[facility] PATHOLOGIST Nahid Russell, INTERPRETATION BY: (test M.D. code = 8122) LOCATION: (test code = (NOTE) 91476) CPT: (test code = 8140) (NOTE) HPV HIGH RISK WITH GENOTYPE, [id number] 00:00:00 Test Item Value Reference Range Interpretation Comments HPV HIGH RISK INTERP (test code = POSITIVE 39161) HPV 16 (test code = 29184) POSITIVE HPV 18 (test code = 40659) NEGATIVE HPV, HR, OTHER GENOTYPES (test code POSITIVE = 20944) HPV HIGH RISK WITH GENOTYPE, [id number] 00:00:00 Test Item Value Reference Range Interpretation Comments HPV HIGH RISK INTERP (test code = POSITIVE 20823) HPV 16 (test code = 28550) POSITIVE HPV 18 (test code = 78198) NEGATIVE HPV, HR, OTHER GENOTYPES (test code POSITIVE = 54703) HPV HIGH RISK WITH GENOTYPE, [id number] 00:00:00 Test Item Value Reference Range Interpretation Comments HPV HIGH RISK INTERP (test code = POSITIVE 49224) HPV 16 (test code = 97352) POSITIVE HPV 18 (test code = 88733) NEGATIVE HPV, HR, OTHER GENOTYPES (test code POSITIVE = 71162) HPV HIGH RISK WITH GENOTYPE, [id number] 00:00:00 Test Item Value Reference Range Interpretation Comments HPV HIGH RISK INTERP (test code = POSITIVE 80209) HPV 16 (test code = 45058) POSITIVE HPV 18 (test code = 21217) NEGATIVE HPV, HR, OTHER GENOTYPES (test code POSITIVE = 85279) [id number] 03:22:48 Test Item Value Reference Range Interpretation Comments APPEARANCE (test code = Hazy Clear A 4186842311) COLOR (test code = Yellow Yellow 0775625516) PH (test code = 4.8-8.0 3313235950) SP GRAVITY (test code = 1.003-1.030 6715537722) GLU U QUAL (test code = Normal Normal 2488468119) BLOOD (test code = Negative Negative Interfere nce from 4946067879) ascorbic acid m ay cause false neg ative results. KETONES (test code = 5 mg/dL Negative A 6763894314) PROTEIN (test code = Negative Negative 2887-8) UROBILIN (test code = 4.0 mg/dL Normal A 9188071770) BILIRUBIN (test code = Negative Negative 3283575176) NITRITE (test code = Negative Negative 5189756217) LEUK GRUPO (test code = Negative Negative 9799128782) RBC/HPF (test code = See_Comment [Autom ated message] 2369698686) The system [employer] generated this result transmitted ref erence range: 0 - 3 HP F. The reference range was not used to int erpret this result as normal/abnormal . WBC/HPF (test code = <1 See_Comment [Autom ated message] 8573296090) The system [employer] generated this result transmitted ref erence range: 0 - 5 HP F. The reference range was not used to int erpret this result as normal/abnormal . BACTERIA (test code = Few Negative A 0815889021) SQ EPITH (test code = HPF 7004902274) Lab Interpretation Abnormal (test code = 20294-4) [facility] Test Item Value Reference Range Interpretation Comments APPEARANCE (test code = Hazy Clear A 4530341414) COLOR (test code = Yellow Yellow 8366010339) PH (test code = 4.8-8.0 7555094739) SP GRAVITY (test code = 1.003-1.030 8620065062) GLU U QUAL (test code = Normal Normal 0207415824) BLOOD (test code = Negative Negative 2604758392) KETONES (test code = 5 mg/dL Negative A 9100388881) PROTEIN (test code = Negative Negative 2887-8) UROBILIN (test code = 4.0 mg/dL Normal A 0268594278) BILIRUBIN (test code = Negative Negative 4147256176) NITRITE (test code = Negative Negative 0264384306) LEUK GRUPO (test code = Negative Negative 4064616706) RBC/HPF (test code = See_Comment [Autom ated message] 1441122589) The system [employer] generated this result transmit sherice reference range : 0 - 3 HPF. The refe rence range was not u sed to interpret th is result as normal/abnormal . WBC/HPF (test code = <1 See_Comment [Autom ated message] 1632557558) The system [employer] generated this result transmit sherice reference range : 0 - 5 HPF. The refe rence range was not u sed to interpret th is result as normal/abnormal . BACTERIA (test code = Few Negative A 1054001684) SQ EPITH (test code = HPF 1150092608) Lab Interpretation (test Abnormal code = 49356-6) [facility] [id number] 02:45:00 Test Item Value Reference Interpretation Comments Range TROPONIN I (test 0.002 ng/mL See_Comment [Automated code = 6937645129) message] The system which generated this result [...] biotin. Lab Interpretation Normal (test code = 00887-0) [facility] [id number] 02:45:00 Test Item Value Reference Range Interpretation Comments TROPONIN I (test code = 0.002 ng/mL See_Comment [Au tomated 2746696506) message] The sy stem which generated this result transmitted reference range : <=0.034. The reference range was not used to interpret this result as normal/abnormal . LYNDSAY (test code = LYNDSAY) Lab Interpretation Normal (test code = 85392-8) [facility] [id number] 02:41:57 Test Item Value Reference Range Interpretation Comments NT-proBNP (test code 169 pg/mL See_Comment H [Autom ated = 4638863531) message] The system which generated this result transmitted reference range : <=125. The reference range was not used to interpret this result as normal/abnormal . LYNDSAY (test code = LYNDSAY) Biotin has been reported to cause a negative bias, interpret results relative to patient's use of biotin. Lab Interpretation Abnormal (test code = 95406-8) [facility]-TERMIN[facility] [id number] 02:41:57 Test Item Value Reference Range Interpretation Comments NT-proBNP (test code = 169 pg/mL See_Comment H [Aut omated message] 6292403122) The system [employer] generated this result transmit sherice reference range : <=125. The refe rence range was not u sed to interpret th is result as normal/abnormal . LYNDSAY (test code = LYNDSAY) Lab Interpretation (test Abnormal code = 17240-6) [facility]. METABOLIC PANEL (43052)2021-03-17 02:09:13 Test Item Value Reference Range Interpretation Comments NA (test code = 137 mmol/L 135-145 2579145577) K (test code = 4.2 mmol/L 3.5-5.0 4295112566) CL (test code = 102 mmol/L 98-108 4179618456) CO2 TOTAL (test code = 25 mmol/L 23-31 2658914384) AGAP (test code = 2-16 7340758186) BUN (test code = 18 mg/dL 7-23 4101522282) GLUCOSE (test code = 144 mg/dL 70-110 H 9721177915) CREATININE (test code = 0.77 mg/dL 0.50-1.04 0703163557) TOTAL BILI (test code = 0.4 mg/dL 0.1-1.0 1501804932) CALCIUM (test code = 8.9 mg/dL 8.6-10.6 9429097729) T PROTEIN (test code = 6.8 g/dL 6.3-8.2 8882639965) ALBUMIN (test code = 3.9 g/dL 3.5-5.0 3838169650) ALK PHOS (test code = 84 U/L 34-122 8952991581) ALTv (test code = 13 U/L 5-35 1742-6) AST(SGOT) (test code = 17 U/L 13-40 8480261215) eGFR (test code = mL/min/1.73m2 2081137368) LYNDSAY (test code = LYNDSAY) Association of [...] tests). Lab Interpretation Abnormal (test code = 74269-2) [facility]. METABOLIC PANEL (12068)2021-03-17 02:09:13 Test Item Value Reference Range Interpretation Comments NA (test code = 2085278284) 137 mmol/L 135-145 K (test code = 2486064027) 4.2 mmol/L 3.5-5.0 CL (test code = 8686173604) 102 mmol/L 98-108 CO2 TOTAL (test code = 4553272254) 25 mmol/L 23-31 AGAP (test code = 2350924174) 2-16 BUN (test code = 5173678095) 18 mg/dL 7-23 GLUCOSE (test code = 9654264848) 144 mg/dL 70-110 H CREATININE (test code = 0.77 mg/dL 0.50-1.04 5411394009) TOTAL BILI (test code = 0.4 mg/dL 0.1-1.5 6653828806) CALCIUM (test code = 1568664147) 8.9 mg/dL 8.6-10.6 T PROTEIN (test code = 6337388344) 6.8 g/dL 6.3-8.2 ALBUMIN (test code = 7121316212) 3.9 g/dL 3.5-5.0 ALK PHOS (test code = 6894354425) 84 U/L 34-122 ALTv (test code = 1742-6) 13 U/L 5-35 AST(SGOT) (test code = 9818538200) 17 U/L 13-40 eGFR (test code = 4297145827) mL/min/1.73m2 LYNDSAY (test code = LYNDSAY) Lab Interpretation (test code = Abnormal 52648-2) [facility] WITH [id number] 01:56:33 Test Item Value Reference Range Interpretation [...] (test code = 55.5 fL 39.0-49.9 H 36184-7) RDW-CV (test code = 18.9 % 12.0-15.5 H 788-0) PLT (test code = See_Comment H [Automated 777-3) message] The sy stem which generated this result transmitted reference range : 166 - 358 10*3/ ?L. The reference r zoe was not used to interpret this result as normal/abnormal . MPV (test code = 8.2 fL 9.5-12.9 L 38794-2) NRBC/100 WBC (test See_Comment [Automat ed code = 9556133473) message] The system which generated this result transmitted reference range : 0.0 - 10.0 /100 WBCs. The refer ence range was not u sed to interpret th is result as normal/abnormal . NRBC x10^3 (test code <0.01 See_Comment [Auto mated = 1704184974) message] The s ystem which generated this result transmitted reference range : 10*3/?L. The reference range was not used to interpret this result as normal/abnormal . GRAN MAT (NEUT) % 61.7 % (test code = 770-8) IMM GRAN % (test code 0.80 % = 4532697162) LYMPH % (test code = 28.5 % 736-9) MONO % (test code = 6.3 % 5905-5) EOS % (test code = 1.8 % 713-8) BASO % (test code = 0.9 % 706-2) GRAN MAT x10^3(ANC) 7.31 10*3/uL 1.88-7.09 H (test code = 7745590577) IMM GRAN x10^3 (test 0.09 10*3/uL 0.00-0.06 H code = 3066209159) LYMPH x10^3 (test code 3.38 10*3/uL 1.32-3.29 H = 731-0) MONO x10^3 (test code 0.75 10*3/uL 0.33-0.92 = 742-7) EOS x10^3 (test code = 0.21 10*3/uL 0.03-0.39 711-2) BASO x10^3 (test code 0.11 10*3/uL 0.01-0.07 H = 704-7) Lab Interpretation Abnormal (test code = 97295-1) [facility] WITH [id number] 01:56:33 Test Item Value Reference Range Interpretation Comments WBC (test code = See_Comment H [Automated 5590-2) message] The sy stem which generated this result transmitted reference range : 4.30 - 11.10 10*3/?L. The reference range was not used to interpret this result as normal/abnormal . RBC (test code = See_Comment [Automated 819-8) message] The sy stem which generated this [...] (test code = 55.5 fL 39.0-49.9 H 96918-7) RDW-CV (test code = 18.9 % 12.0-15.5 H 788-0) PLT (test code = See_Comment H [Automated 777-3) message] The sy stem which generated this result transmitted reference range : 166 - 358 10*3/ ?L. The reference r zoe was not used to interpret this result as normal/abnormal . MPV (test code = 8.2 fL 9.5-12.9 L 88183-4) NRBC/100 WBC (test See_Comment [Automat ed code = 3435780527) message] The system which generated this result transmitted reference range : 0.0 - 10.0 /100 WBCs. The refer ence range was not u sed to interpret th is result as normal/abnormal . NRBC x10^3 (test code <0.01 See_Comment [Auto mated = 2045439757) message] The s ystem which generated this result transmitted reference range : 10*3/?L. The reference range was not used to interpret this result as normal/abnormal . GRAN MAT (NEUT) % 61.7 % (test code = 770-8) IMM GRAN % (test code 0.80 % = 3655505133) LYMPH % (test code = 28.5 % 736-9) MONO % (test code = 6.3 % 5905-5) EOS % (test code = 1.8 % 713-8) BASO % (test code = 0.9 % 706-2) GRAN MAT x10^3(ANC) 7.31 10*3/uL 1.88-7.09 H (test code = 0768679381) IMM GRAN x10^3 (test 0.09 10*3/uL 0.00-0.06 H code = 5130865805) LYMPH x10^3 (test code 3.38 10*3/uL 1.32-3.29 H = 731-0) MONO x10^3 (test code 0.75 10*3/uL 0.33-0.92 = 742-7) EOS x10^3 (test code = 0.21 10*3/uL 0.03-0.39 711-2) BASO x10^3 (test code 0.11 10*3/uL 0.01-0.07 H = 704-7) Lab Interpretation Abnormal (test code = 78631-2) [facility]-19 (ID NOW RAPID TESTING)2021-03-17 01:38:12 Test Item Value Reference Range Interpretation Comments SARS-CoV-2 Rapid ID NOW Not Detected Not Detected (test code = 96793-7) LYNDSAY (test code = LYNDSAY) ID NOW COVID-19 Assay is an isothermal nucleic acid amplification test intended for the qualitative detection of nucleic acid from SARS-CoV-2 viral RNA in nasopharyngeal (PHARMACY BILLING ADJUDICATOR) specimens. It is used under Emergency Use [...] indicated. Lab Interpretation Normal (test code = 88887-9) [facility]-19 (ID NOW RAPID TESTING)2021-03-17 01:38:12 Test Item Value Reference Range Interpretation Comments SARS-CoV-2 Rapid ID NOW (test Not Detected Not Detected code = 39081-3) LYNDSAY (test code = LYNDSAY) Lab Interpretation (test code = Normal 98405-1) [facility]-19 (ID NOW RAPID TESTING)2021-02-19 17:42:45 Test Item Value Reference Range Interpretation Comments SARS-CoV-2 Rapid ID NOW Not Detected Not Detected (test code = 66372-4) LYNDSAY (test code = LYNDSAY) ID NOW COVID-19 Assay is an isothermal nucleic acid amplification test intended for the qualitative detection of nucleic acid from SARS-CoV-2 viral RNA in nasopharyngeal (PHARMACY BILLING ADJUDICATOR) specimens. It is used under Emergency Use [...] indicated. Lab Interpretation Normal (test code = 13734-6) [facility] W [id number] 17:24:55Thickening of the gastric antrum and duodenal [...] nodularity of the left adrenal gland.RL: 8722 [facility]inalysis20[facility] 17:03:40 Test Item Value Reference Range Interpretation Comments APPEARANCE (test code = Hazy Clear A 8194426700) COLOR (test code = Mabel Yellow A 4471117207) PH (test code = 4.8-8.0 8945102831) SP GRAVITY (test code = 1.003-1.030 H 8551491835) GLU U QUAL (test code = Normal Normal 9160167702) BLOOD (test code = Negative Negative 8160515737) KETONES (test code = 5 mg/dL Negative A 8743141058) PROTEIN (test code = 30 mg/dL Negative A 2887-8) UROBILIN (test code = 4.0 mg/dL Normal A 2294817881) BILIRUBIN (test code = 4 mg/dL Negative A 8372977904) NITRITE (test code = Negative Negative 3961277308) LEUK GRUPO (test code = Negative Negative 6086275239) RBC/HPF (test code = See_Comment H [Autom ated message] 6027912247) The system [employer] generated this result transmit sherice reference range : 0 - 3 HPF. The refe rence range was not u sed to interpret th is result as normal/abnormal . WBC/HPF (test code = See_Comment H [Autom ated message] 8081104443) The system [employer] generated this result transmit sherice reference range : 0 - 5 HPF. The refe rence range was not u sed to interpret th is result as normal/abnormal . BACTERIA (test code = Few Negative A 9167704485) MUCOUS (test code = Moderate Negative LPF A 3539535984) SQ EPITH (test code = HPF 3968209534) CA OXALATE (test code = See_Comment H [Au tomated message] 3692062891) The system [employer] generated this result transmit sherice reference range : <=1 HPF. The refere nce range was not u sed to interpret th is result as normal/abnormal . Ictotest (test code = Negative 5379760769) Lab Interpretation (test Abnormal code = 23465-3) [facility] Metabolic [id number] 16:34:55 Test Item Value Reference Range Interpretation Comments NA (test code = 139 mmol/L 135-145 0395471542) K (test code = 4.3 mmol/L 3.5-5.0 1985414214) CL (test code = 105 mmol/L 98-108 0359360337) CO2 TOTAL (test code 26 mmol/L 23-31 = 2857910245) AGAP (test code = 2-16 9535932127) BUN (test code = 11 mg/dL 7-23 6965155373) GLUCOSE (test code = 95 mg/dL 70-110 7225206732) CREATININE (test code 0.70 mg/dL 0.50-1.04 = 4531111764) TOTAL BILI (test code 0.6 mg/dL 0.1-1.1 = 7966866143) CALCIUM (test code = 8.9 mg/dL 8.6-10.6 9434832233) T PROTEIN (test code 7.7 g/dL 6.3-8.2 = 5408762512) ALBUMIN (test code = 4.1 g/dL 3.5-5.0 3972278271) ALK PHOS (test code = 79 U/L 34-122 9556088261) ALTv (test code = 10 U/L 5-35 2-6) AST(SGOT) (test code 22 U/L 13-40 = 0441476594) eGFR (test code = mL/min/1.73m2 6935325105) LYNDSAY (test code = LYNDSAY) Association of [...] or urine or abnormalities in imaging tests). [facility] CenterLipase, [id number] 16:34:14 Test Item Value Reference Range Interpretation Comments LIPASE (test code = 0696950948) 45 U/L 0-220 Lab Interpretation (test code = Normal 07595-4) [facility] with [id number] 16:21:12 Test Item Value Reference Range Interpretation Comments WBC (test code = See_Comment [Automated 9278-2) message] The sy stem which generated this [...] (test code = 54.4 fL 39.0-49.9 H 86989-6) RDW-CV (test code = 18.3 % 12.0-15.5 H 788-0) PLT (test code = See_Comment H [Automated 777-3) message] The sy stem which generated this result transmitted reference range : 166 - 358 10*3/ ?L. The reference r zoe was not used to interpret this result as normal/abnormal . MPV (test code = 8.5 fL 9.5-12.9 L 69902-9) NRBC/100 WBC (test See_Comment [Automat ed code = 6834985085) message] The system which generated this result transmitted reference range : 0.0 - 10.0 /100 WBCs. The refer ence range was not u sed to interpret th is result as normal/abnormal . NRBC x10^3 (test code <0.01 See_Comment [Auto mated = 1207720968) message] The s ystem which generated this result transmitted reference range : 10*3/?L. The reference range was not used to interpret this result as normal/abnormal . GRAN MAT (NEUT) % 78.3 % (test code = 770-8) IMM GRAN % (test code 0.40 % = 4199960785) LYMPH % (test code = 15.4 % 736-9) MONO % (test code = 4.8 % 5905-5) EOS % (test code = 0.1 % 713-8) BASO % (test code = 1.0 % 706-2) GRAN MAT x10^3(ANC) 7.15 10*3/uL 1.88-7.09 H (test code = 9600602134) IMM GRAN x10^3 (test 0.04 10*3/uL 0.00-0.06 code = 2173009073) LYMPH x10^3 (test code 1.41 10*3/uL 1.32-3.29 = 731-0) MONO x10^3 (test code 0.44 10*3/uL 0.33-0.92 = 742-7) EOS x10^3 (test code = <0.03 0.03-0.39 L 711-2) BASO x10^3 (test code 0.09 10*3/uL 0.01-0.07 H = 704-7) Lab Interpretation Abnormal (test code = 50235-9) [facility]
[2023-05-15] MEDS ORDERED: ASPIRIN 81 MG CHEWABLE TABLET ONE ×2 (12:22→15:11)
[2023-05-15] MEDS ORDERED: CEFTRIAXONE 1000 MG/VIAL ONE (12:23)
[2023-05-15] MEDS ORDERED: NA CHLORIDE 0.9% 1,000 ML ONE (12:23)
[2023-05-15] MEDS ORDERED: NA CHLORIDE 0.9% 500 ML ONE (12:23)
[2023-05-15] MEDS ORDERED: AZITHROMYCIN 250 MG TAB ONE (12:23)
[2023-05-15 12:42] LABS: Absolute Lymphocytes (CBC) 3.3 K/uL (0.7-4.9); Hematocrit 42.4 % (36.0-45.0); Lymphocytes % 21.8 % (15.3-44.8); MCV 88.1 fL (80-100); MPV 6.4 fL (7.6-11.3); Platelets 451 thou/uL (152-406); RBC Red Blood Cell Count 4.81 M/uL (3.86-4.86)
--- NOTE | 2023-05-15 12:42 | RAD REPORT ---
EXAM DESCRIPTION: [facility] Single View05/15/2023 12:30 pm CLINICAL HISTORY: Chest pain COMPARISON: May 03, 2023 FINDINGS: The lungs appear clear of acute infiltrate. The heart is mildly enlarged IMPRESSION: No acute abnormalities displayed
[2023-05-15 12:47] LABS: Protime INR 0.95
[2023-05-15 13:02] LABS: ALT/SGPT 20 U/L (13-56); AST/SGOT 9 U/L (15-37); Albumin 3.5 g/dL (3.4-5.0); Alkaline Phosphatase 66 U/L (45-117); BUN Blood Urea Nitrogen 13 mg/dL (7-18); Bicarbonate 30 mEq/L (21-32); Bilirubin Total 0.2 mg/dL (0.2-1.0); Glomerular Filtration Rate 98 ml/min (=/>90); Glucose Level 111 mg/dL (74-106); Lipase 37 U/L (13-75); NT PRO-BNP 1012 pg/mL (<125); Potassium 3.5 mEq/L (3.5-5.1); Protein, Total 7.1 g/dL (6.4-8.2); Sodium Level 138 mEq/L (136-145)
[2023-05-15 13:10] LABS: Bilirubin Direct < 0.1 mg/dL (0-0.2); Bilirubin Indirect, Calculated ND mg/dL (0.2-0.8)
[2023-05-15 13:11] LABS: Troponin High Sensitivity 80.4 pg/mL (<58.9)
[2023-05-15 13:58] LABS: Specific Gravity 1.006 (1.005-1.030); Urine Bacteria None Seen /HPF (<20); Urine Bilirubin NEGATIVE (Negative); Urine Blood 3+ (OVER) (Negative); Urine Clarity Extremely Turbid (Clear); Urine Color Light-Brown (Yellow); Urine Glucose NEGATIVE (Negative); Urine Protein TRACE (Negative); Urine RBC >50 /HPF (None Seen); Urine Urobilinogen Normal (Normal); Urine pH 6.5 (5.0-7.0)
--- NOTE | 2023-05-15 14:51 | EDPHYS ---
Physician Documentation [facility] Name: Heather Coon Age: 53 yrs Sex: Female : 1970 Arrival Date: 05/15/2023 Time: 11:49 Bed 13 Private MD: ED Physician Derrick Santillan HPI: 05/15 14:43 This 53 yrs old Female presents to ER via EMS with complaints of Chest Pain, fabrice Flu Symptoms. 14:43 The patient or guardian reports chest pain that is located primarily in the substernal fabrice area. Onset: 1 day(s) ago. The pain does not radiate. Associated signs and symptoms: Pertinent positives: shortness of breath. The chest pain is described as a heaviness, a pressure. Modifying factors: The symptoms are alleviated by nothing. the symptoms are aggravated by nothing. Severity of pain: At its worst the pain was moderate in the emergency department the pain has improved mildly. The patient has not experienced similar symptoms in the past. Historical: - Allergies: 11:55 fluoxetine; kc6 11:55 Green Tea; kc6 11:55 Keppra; not an allergy; kc6 - PMHx: 11:55 Anxiety; Arthritis; Bipolar disorder; Cancer-Cervical; Chronic obstructive lung kc6 disease; Chronic pain; Congestive heart failure; Depression; Diverticulitis; Herniated Back Disc; Hypertension; intestinal mass; Myocardial infarction; pt reports hx of seizures; Spastic Muscles; stroke; - PSHx: 11:55 cervical fusion; Cholecystectomy; foot; Tonsillectomy; kc6 - Immunization history:: Adult Immunizations unknown. - Social history:: Smoking status: Patient/guardian denies using tobacco. - Family history:: not pertinent. ROS: 14:43 Constitutional: Negative for fever, chills, and weight loss, Eyes: Negative for injury, fabrice pain, redness, and discharge, ENT: Negative for injury, pain, and discharge, Neck: Negative for injury, pain, and swelling, Respiratory: Negative for shortness of breath, cough, wheezing, and pleuritic chest pain, Abdomen/GI: Negative for abdominal pain, nausea, vomiting, diarrhea, and constipation, Back: Negative for injury and pain, : Negative for injury, bleeding, discharge, and swelling, MS/Extremity: Negative for injury and deformity, Skin: Negative for injury, rash, and discoloration, Neuro: Negative for headache, weakness, numbness, tingling, and seizure, Psych: Negative for depression, anxiety, suicide ideation, homicidal ideation, and hallucinations, Allergy/Immunology: Negative for hives, rash, and allergies, Endocrine: Negative for neck swelling, polydipsia, polyuria, polyphagia, and marked weight changes, 14:43 Cardiovascular: Positive for chest pain, Exam: 14:43 Constitutional: This is a well developed, well nourished patient who is awake, alert, fabrice and in no acute distress. Head/Face: Normocephalic, atraumatic. Eyes: Pupils equal round and reactive to light, extra-ocular motions intact. Lids and lashes normal. Conjunctiva and sclera are non-icteric and not injected. Cornea within normal limits. Periorbital areas with no swelling, redness, or edema. ENT: Nares patent. No nasal discharge, no septal abnormalities noted. Tympanic membranes are normal and external auditory canals are clear. Oropharynx with no redness, swelling, or masses, exudates, or evidence of obstruction, uvula midline. Mucous membranes moist. Neck: Trachea midline, no thyromegaly or masses palpated, and no cervical lymphadenopathy. Supple, full range of motion without nuchal rigidity, or vertebral point tenderness. No Meningismus. Chest/axilla: Normal chest wall appearance and motion. Nontender with no deformity. No lesions are appreciated. Cardiovascular: Regular rate and rhythm with a normal S1 and S2. No gallops, murmurs, or rubs. Normal PMI, no JVD. No pulse deficits. Respiratory: Lungs have equal breath sounds bilaterally, clear to auscultation and percussion. No rales, rhonchi or wheezes noted. No increased work of breathing, no retractions or nasal flaring. Abdomen/GI: Soft, non-tender, with normal bowel sounds. No distension or tympany. No guarding or rebound. No evidence of tenderness throughout. Back: No spinal tenderness. No costovertebral tenderness. Full range of motion. Skin: Warm, dry with normal turgor. Normal color with no rashes, no lesions, and no evidence of cellulitis. MS/ Extremity: Pulses equal, no cyanosis. Neurovascular intact. Full, normal range of motion. Neuro: Awake and alert, GCS 15, oriented to person, place, time, and situation. Cranial nerves II-XII grossly intact. Motor strength 5/5 in all extremities. Sensory grossly intact. Cerebellar exam normal. Normal gait. Psych: Awake, alert, with orientation to person, place and time. Behavior, mood, and affect are within normal limits. 14:43 ECG was reviewed by the Attending Physician. Vital Signs: 11:53 BP 128 / 84; Pulse 97; Resp 16 S; Temp 98.4(O); Pulse Ox 100% on R/A; Weight 88.45 kg kc6 (R); Height 5 ft. 2 in. ; 12:43 BP 115 / 87; Pulse 86; Resp 20 S; Pulse Ox 99% on R/A; kc6 13:39 BP 129 / 85; Pulse 85; Resp 16 S; Pulse Ox 100% on R/A; kc6 16:21 BP 143 / 99; Pulse 90; Resp 16 S; Pulse Ox 100% on R/A; kc6 17:15 BP 133 / 89; Pulse 83; Resp 16 S; Pulse Ox 99% on R/A; kc6 18:35 BP 138 / 94; Pulse 85; Resp 14 S; Pulse Ox 96% on R/A; kc6 19:11 BP 127 / 82; Pulse 83; Resp 15 S; Pulse Ox 97% on R/A; lg3 11:53 Body Mass Index 35.67 (88.45 kg, 157.48 cm) kc6 MDM: 11:54 Patient medically screened. fabrice 14:46 Differential diagnosis: abnormal EKG, acute myocardial infarction, acute pericarditis, fabrice anxiety, Cholelithiasis costochondritis, esophagitis, gastritis, hiatal hernia, pancreatitis, peptic ulcer disease, pericarditis, pleurisy, pneumonia, pulmonary embolus, stable angina, thoracic aortic disection, unstable angina. HEART Score: History: Moderately Suspicious (1), ECG: Non specific repolarization disturbance / LBTB / PM (1), Age: > 45 and < 65 years (1), Risk Factors: > or = 3 Risk factors for atherosclerotic disease (2), [Hypercholesterolemia] [Hypertension] [Active Smoker] [+ Family HX] [Obesity] Troponin: > 1 and < 3 x normal limit (1), Total Score = 5. The patient was given aspirin in the Emergency Department. SHILPA Risk Score: 1 - Three or more CAD risk factors, 1 - Recent [<24hrs] Severe Angina, 1 - Elevated Cardiac Markers, TOTAL SCORE = 3. Data reviewed: vital signs, nurses notes, lab test result(s), EKG, radiologic studies. Consideration of Admission/Observation Patient was admitted/placed on observation. Escalation of care including admission/observation considered. I considered the following discharge prescriptions or medication management in the emergency department Medications were administered in the Emergency Department. See MAR. Test considered but Not performed: CT: no ct chest. 14:48 Management of patient was discussed with the following: Hospitalist: stefani bowen. [facility] 05/15 12:01 Order name: Basic Metabolic Panel; Complete Time: 14:34 [facility] 05/15 12:01 Order name: CBC with Diff; Complete Time: 14:34 [facility] 05/15 12:01 Order name: LFT's; Complete Time: 14:34 [facility] 05/15 12:01 Order name: Magnesium; Complete Time: 14:34 [facility] 05/15 12:01 Order name: NT PRO-BNP; Complete Time: 14:34 [facility] 05/15 12:01 Order name: PT-INR; Complete Time: 14:34 [facility] 05/15 12:01 Order name: Troponin HS; Complete Time: 14:34 [facility] 05/15 12:01 Order name: Lipase; Complete Time: 14:34 [facility] 05/15 12:01 Order name: Blood Culture Adult (2) [facility] 05/15 12:01 Order name: Lactate w/ 2H reflex if indic.; Complete Time: 14:34 [facility] 05/15 12:01 Order name: Urinalysis w/ reflexes; Complete Time: 14:34 [facility] 05/15 14:02 Order name: Urine Culture [facility] 05/15 14:36 Order name: Lipid Profile; Complete Time: 15:06 [facility] 05/15 14:40 Order name: Depakote; Complete Time: 15:45 [facility] 05/15 12:01 Order name: XRAY Chest (1 view); Complete Time: 14:34 [facility] 05/15 14:55 Order name: CT Chest For PE Angio; Complete Time: 16:07 [facility] 05/15 12:01 Order name: EKG; Complete Time: 12:02 [facility] 05/15 12:01 Order name: Cardiac monitoring; Complete Time: 12:26 [facility] 05/15 12:01 Order name: EKG - Nurse/Tech; Complete Time: 12:26 [facility] 05/15 12:01 Order name: IV Saline Lock; Complete Time: [facility] 05/15 12:01 Order name: Labs collected and sent; Complete Time: [facility] 05/15 12: Order name: O2 Per Protocol; Complete Time: [facility] 05/15 12:01 Order name: O2 Sat Monitoring; Complete Time: [facility] EC:43 Rate is 89 beats/min. Rhythm is regular. QRS [place] is Normal. MO interval is normal. QRS fabrice interval is normal. QT interval is prolonged at 486 msec. No Q waves. T waves are Normal. No ST changes noted. Clinical impression: NSR w/ Non-specific ST/T Changes and No evidence of ischemia. Interpreted by me. Reviewed by me. Administered Medications: 12:39 Drug: NS 0.9% IV 500 ml IV at bolus once Route: IV; Rate: bolus; Site: left antecubital;6 16:22 Follow up: Response: No adverse reaction; IV Status: Completed infusion; IV Intake: kc6 500ml 12:39 Drug: Aspirin PO Chewable Tablet 81 mg PO once Route: PO; kc6 13:21 Follow up: Response: No adverse reaction 6 12:39 Drug: NS 0.9% IV 1000 ml IV at 125 ml/hr continuous Route: IV; Rate: 125 ml/hr; Site: [facility] left antecubital; 16:22 Follow up: Response: No adverse reaction; IV Status: Infusion continued upon admission kc6 12:42 Drug: Rocephin IV 1 grams IV at per protocol once; Given slow IV push per pharmacy kc6 instructions Route: IV; Rate: per protocol; Site: left antecubital; 13:21 Follow up: Response: No adverse reaction; IV Status: Completed infusion; IV Intake: [id number] 12:42 Drug: AZITHromycin PO 500 mg PO once Route: PO; kc6 13:21 Follow up: Response: No adverse reaction kc6 15:14 Drug: morphine IVP or IV 4 mg IVP once over 4 mins Route: IVP; Infused Over: 4 mins; hb Site: left antecubital; 16:23 Follow up: Response: No adverse reaction; Pain is decreased; RASS: Alert and Calm (0) 6 15:14 Drug: Ondansetron IVP 4 mg IVP once; over 2 minutes Route: IVP; Site: left antecubital; hb 16:23 Follow up: Response: No adverse reaction; Nausea is decreased kc6 15:14 Drug: Atorvastatin PO 20 mg PO once Route: PO; hb 16:23 Follow up: Response: No adverse reaction kc6 15:14 Drug: Famotidine IVP 20 mg IVP once; dilute with 10 mL 0.9% NaCl; give over 2 minutes hb Route: IVP; Site: left antecubital; 16:23 Follow up: Response: No adverse reaction kc6 15:14 Not Given (Patient Refused): nicoderm cqpatch 21 mg/24 hr 1 patches Transdermal once hb 15:15 Drug: Enoxaparin Sub-Q 1 mg/kg Sub-Q once Route: Sub-Q; Site: abdomen; hb 16:22 Follow up: Response: No adverse reaction kc6 15:16 Not Given (Patient Refused): aspirinchewable tablet 243 mg PO once hb 15:16 Drug: Clopidogrel PO 300 mg PO once Route: PO; hb 16:22 Follow up: Response: No adverse reaction kc6 17:51 Drug: morphine IVP or IV 4 mg IVP once over 4 mins Route: IVP; Infused Over: 4 mins; kc6 Site: left antecubital; 18:34 Follow up: Response: No adverse reaction; Pain is decreased; RASS: Alert and Calm (0) kc6 17:51 Drug: Ondansetron IVP 4 mg IVP once; over 2 minutes Route: IVP; Site: left antecubital; kc6 18:34 Follow up: Response: No adverse reaction; Nausea is decreased kc6 Disposition Summary: 05/15/23 14:50 Hospitalization Ordered Notes: Hospitalization Status: Inpatient Admission fabrice Provider: Rajeev Holguin cha Location: Telemetry/MedSurg (Inpatient) fabrice Condition: Stable fabrice Problem: new fabrice Symptoms: have improved fabrice Bed/Room Type: Standard [facility] Room Assignment: 401(05/15/23 18:25) eb Diagnosis - Unstable angina fabrice - Chest pain, unspecified fabrice - Non ST elevation [place] fabrice - Tobacco abuse counseling fabrice - Tobacco use fabrice - Elevated white blood cell count fabrice Forms: - Medication Reconciliation Form fabrice - SBAR form fabrice - Leadership Thank You Letter fabrice Signatures: Dispatcher [employer] Derrick Payton MD MD cha Attema, Lee, CAFE ATTENDANT-C CAFE ATTENDANT-Cla1 Sabrina Baum, RN RN Radha Fenton Kaitlyn, RN RN kc6 Corrections: (The following items were deleted from the chart) 18:25 14:50 fabrice dunn
--- NOTE | 2023-05-15 14:51 | ER ---
Nurse's Notes [facility] Name: Heather Coon Age: 53 yrs Sex: Female : 1970 Arrival Date: 05/15/2023 Time: 11:49 Bed 13 Private MD: Diagnosis: Unstable angina;Chest pain, unspecified;Non ST elevation [place];Tobacco abuse counseling;Tobacco use;Elevated white blood cell count Presentation: 05/15 11:53 Chief complaint: EMS states: pt was admitted last week for the flu. pt is still not kc6 feeling well. reports chest pressure that radiates to her left arm. pt took 1G of extra strength tylenol at home prior to arrival. 324 aspirin given en route. Coronavirus screen: At this time, the client does not indicate any symptoms associated with coronavirus-19. Ebola Screen: No symptoms or risks identified at this time. Initial Sepsis Screen: Does the patient meet any 2 criteria? No. Patient's initial sepsis screen is negative. Does the patient have a suspected source of infection? No. Patient's initial sepsis screen is negative. Risk Assessment: Do you want to hurt yourself or someone else? Patient reports no desire to harm self or others. Onset of symptoms was May 15, 2023. 11:53 Method Of Arrival: EMS: [facility] kc6 11:53 Acuity: ANDER 4 kc6 Triage Assessment: 11:55 General: Appears in no apparent distress. comfortable, Behavior is calm, cooperative, kc6 appropriate for age. Pain: Complains of pain in chest and left arm. EENT: No signs and/or symptoms were reported regarding the EENT system. Neuro: Level of Consciousness is awake, alert, obeys commands, Oriented to person, place, time, situation, Appropriate for age. Cardiovascular: Reports chest pain, Heart tones S1 S2 present Capillary refill < 3 seconds. Respiratory: Airway is patent Trachea midline Respiratory effort is even, unlabored, Respiratory pattern is regular, symmetrical. GI: No signs and/or symptoms were reported involving the gastrointestinal system. : No signs and/or symptoms were reported regarding the genitourinary system. Derm: No signs and/or symptoms reported regarding the dermatologic system. Skin is intact, is healthy with good turgor, Skin is pink, warm \T\ dry. Musculoskeletal: No signs and/or symptoms reported regarding the musculoskeletal system. Circulation, motion, and sensation intact. Capillary refill < 3 seconds, Range of motion: intact in all extremities. Historical: - Allergies: 11:55 fluoxetine; kc6 11:55 Green Tea; kc6 11:55 Keppra; not an allergy; kc6 - PMHx: 11:55 Anxiety; Arthritis; Bipolar disorder; Cancer-Cervical; Chronic obstructive lung kc6 disease; Chronic pain; Congestive heart failure; Depression; Diverticulitis; Herniated Back Disc; Hypertension; intestinal mass; Myocardial infarction; pt reports hx of seizures; Spastic Muscles; stroke; - PSHx: 11:55 cervical fusion; Cholecystectomy; foot; Tonsillectomy; kc6 - Immunization history:: Adult Immunizations unknown. - Social history:: Smoking status: Patient/guardian denies using tobacco. - Family history:: not pertinent. Screenin:57 [facility] ED Fall Risk Assessment (Adult) History of falling in the last 3 months, kc6 including since admission No falls in past 3 months (0 pts) Confusion or Disorientation No (0 pts) Intoxicated or Sedated No (0 pts) Impaired Gait No (0 pts) Mobility Assist Device Used No (0 pt) Altered Elimination No (0 pt) Score/Fall Risk Level 0 - 2 = Low Risk. Abuse screen: Denies threats or abuse. Denies injuries from another. Nutritional screening: No deficits noted. Tuberculosis screening: No symptoms or risk factors identified. Assessment: 11:57 Reassessment: please see triage assessment. kc6 12:43 Reassessment: Patient appears in no apparent distress at this time. No changes from [facility] previously documented assessment. Patient and/or family updated on plan of care and expected duration. Pain level reassessed. Patient is alert, oriented x 3, equal unlabored respirations, skin warm/dry/pink. 13:39 Reassessment: Patient appears in no apparent distress at this time. No changes from [facility] previously documented assessment. Patient and/or family updated on plan of care and expected duration. Pain level reassessed. Patient is alert, oriented x 3, equal unlabored respirations, skin warm/dry/pink. 14:39 Reassessment: Patient appears in no apparent distress at this time. No changes from [facility] previously documented assessment. Patient and/or family updated on plan of care and expected duration. Pain level reassessed. Patient is alert, oriented x 3, equal unlabored respirations, skin warm/dry/pink. 15:39 Reassessment: Patient appears in no apparent distress at this time. No changes from kc6 previously documented assessment. Patient and/or family updated on plan of care and expected duration. Pain level reassessed. Patient is alert, oriented x 3, equal unlabored respirations, skin warm/dry/pink. 16:21 Reassessment: Patient appears in no apparent distress at this time. No changes from kc6 previously documented assessment. Patient and/or family updated on plan of care and expected duration. Pain level reassessed. Patient is alert, oriented x 3, equal unlabored respirations, skin warm/dry/pink. 17:15 Reassessment: Patient appears in no apparent distress at this time. No changes from kc6 previously documented assessment. Patient and/or family updated on plan of care and expected duration. Pain level reassessed. Patient is alert, oriented x 3, equal unlabored respirations, skin warm/dry/pink. 18:15 Reassessment: Patient appears in no apparent distress at this time. No changes from kc6 previously documented assessment. Patient and/or family updated on plan of care and expected duration. Pain level reassessed. Patient is alert, oriented x 3, equal unlabored respirations, skin warm/dry/pink. Vital Signs: 11:53 BP 128 / 84; Pulse 97; Resp 16 S; Temp 98.4(O); Pulse Ox 100% on R/A; Weight 88.45 kg kc6 (R); Height 5 ft. 2 in. ; 12:43 BP 115 / 87; Pulse 86; Resp 20 S; Pulse Ox 99% on R/A; kc6 13:39 BP 129 / 85; Pulse 85; Resp 16 S; Pulse Ox 100% on R/A; kc6 16:21 BP 143 / 99; Pulse 90; Resp 16 S; Pulse Ox 100% on R/A; kc6 17:15 BP 133 / 89; Pulse 83; Resp 16 S; Pulse Ox 99% on R/A; kc6 18:35 BP 138 / 94; Pulse 85; Resp 14 S; Pulse Ox 96% on R/A; kc6 19:11 BP 127 / 82; Pulse 83; Resp 15 S; Pulse Ox 97% on R/A; lg3 11:53 Body Mass Index 35.67 (88.45 kg, 157.48 cm) kc6 ED Course: 11:53 Patient arrived in ED. kc6 11:54 Derrick Santillan MD is Attending Physician. [facility] 11:55 Triage completed. kc6 11:55 Arm band placed on. kc6 11:57 Patient has correct armband on for positive identification. Bed in low position. Call kc6 light in reach. Side rails up X2. Client placed on continuous cardiac and pulse oximetry monitoring. NIBP monitoring applied. clinical research monitor on. 11:57 Patient maintains SpO2 saturation greater than 95% on room air. kc6 12:03 Nichelle Hightower, BETH is Primary Nurse. kc6 12:26 Inserted saline lock: 20 gauge in left antecubital area, using aseptic technique. Blood kc6 collected. 12:32 XRAY Chest (1 view) In Process Unspecified. EDMS 14:49 Rajeev Holguin MD is Hospitalizing Provider. [facility] 15:32 CT Chest For PE Angio In Process Unspecified. EDAZ 19:00 Report given to BETH Arroyo. kc6 20:06 No provider procedures requiring assistance completed. Patient admitted, IV remains in lg3 place. intact, No redness/swelling at site. Administered Medications: 12:39 Drug: NS 0.9% IV 500 ml IV at bolus once Route: IV; Rate: bolus; Site: left antecubital;kc6 16:22 Follow up: Response: No adverse reaction; IV Status: Completed infusion; IV Intake: kc6 500ml 12:39 Drug: Aspirin PO Chewable Tablet 81 mg PO once Route: PO; kc6 13:21 Follow up: Response: No adverse reaction kc6 12:39 Drug: NS 0.9% IV 1000 ml IV at 125 ml/hr continuous Route: IV; Rate: 125 ml/hr; Site: kc6 left antecubital; 16:22 Follow up: Response: No adverse reaction; IV Status: Infusion continued upon admission kc6 12:42 Drug: Rocephin IV 1 grams IV at per protocol once; Given slow IV push per pharmacy kc6 instructions Route: IV; Rate: per protocol; Site: left antecubital; 13:21 Follow up: Response: No adverse reaction; IV Status: Completed infusion; IV Intake: [id number] 12:42 Drug: AZITHromycin PO 500 mg PO once Route: PO; kc6 13:21 Follow up: Response: No adverse reaction kc6 15:14 Drug: morphine IVP or IV 4 mg IVP once over 4 mins Route: IVP; Infused Over: 4 mins; hb Site: left antecubital; 16:23 Follow up: Response: No adverse reaction; Pain is decreased; RASS: Alert and Calm (0) kc6 15:14 Drug: Ondansetron IVP 4 mg IVP once; over 2 minutes Route: IVP; Site: left antecubital; hb 16:23 Follow up: Response: No adverse reaction; Nausea is decreased kc6 15:14 Drug: Atorvastatin PO 20 mg PO once Route: PO; hb 16:23 Follow up: Response: No adverse reaction kc6 15:14 Drug: Famotidine IVP 20 mg IVP once; dilute with 10 mL 0.9% NaCl; give over 2 minutes hb Route: IVP; Site: left antecubital; 16:23 Follow up: Response: No adverse reaction kc6 15:14 Not Given (Patient Refused): nicoderm cqpatch 21 mg/24 hr 1 patches Transdermal once hb 15:15 Drug: Enoxaparin Sub-Q 1 mg/kg Sub-Q once Route: Sub-Q; Site: abdomen; hb 16:22 Follow up: Response: No adverse reaction kc6 15:16 Not Given (Patient Refused): aspirinchewable tablet 243 mg PO once hb 15:16 Drug: Clopidogrel PO 300 mg PO once Route: PO; hb 16:22 Follow up: Response: No adverse reaction kc6 17:51 Drug: morphine IVP or IV 4 mg IVP once over 4 mins Route: IVP; Infused Over: 4 mins; kc6 Site: left antecubital; 18:34 Follow up: Response: No adverse reaction; Pain is decreased; RASS: Alert and Calm (0) kc6 17:51 Drug: Ondansetron IVP 4 mg IVP once; over 2 minutes Route: IVP; Site: left antecubital; kc6 18:34 Follow up: Response: No adverse reaction; Nausea is decreased kc6 Medication: 20:08 VIS not applicable for this client. lg3 Intake: 13:21 IV: 50ml; Total: 50ml. kc6 16:22 IV: 500ml; Total: 550ml. kc6 Outcome: 14:50 Decision to Hospitalize by Provider. fabrice 20:06 Admitted to Med/surg accompanied by nurse, via wheelchair, room 401, lg3 20:06 Condition: stable 20:06 Instructed on the need for admit, 20:08 Patient left the ED. lg3 Signatures: Dispatcher [employer] Derrick Payton MD MD cha Baxter, Heather, RN RN Dina Odom RN RN lg3 Nichelle Hightower RN RN kc6
[2023-05-15] MEDS ORDERED: NICOTINE 21 MG/PAT TD ONE (15:11)
[2023-05-15] MEDS ORDERED: ONDANSETRON 4 MG/2 ML VIAL ONE ×2 (15:13→18:01)
[2023-05-15] MEDS ORDERED: ENOXAPARIN 100 MG/ML SYR SQ ONE (15:13)
[2023-05-15] MEDS ORDERED: MORPHINE 4 MG/ML SYR ONE ×2 (15:13→18:01)
[2023-05-15] MEDS ORDERED: CLOPIDOGREL 75 MG TABLET ONE (15:13)
[2023-05-15] MEDS ORDERED: ATORVASTATIN 20 MG TAB ONE (15:13)
[2023-05-15] MEDS ORDERED: FAMOTIDINE 20 MG/2 ML VIAL IV ONE (15:14)
--- NOTE | 2023-05-15 15:41 | EKG ---
Test Date: 2023-05-15 Test Time: 12:16:06 Data Governance Analyst: DON MEASUREMENT RESULTS: Intervals: Rate: 89 CT: 140 QRSD: 88 QT: 400 QTc: 486 [place]: P: 76 CT: 140 QRS: 68 T: 97 INTERPRETIVE STATEMENTS: Normal sinus rhythm Right atrial enlargement Nonspecific ST and T wave abnormality Prolonged QT Abnormal ECG Compared to ECG 05/03/2023 09:38:38 ST (T wave) deviation now present Prolonged QT interval now present Sinus tachycardia no longer present Ventricular premature complex(es) no longer present Right-axis deviation no longer present Electronically Signed On 05-15-23 15:40:09 CDT by Saad Leavitt
--- NOTE | 2023-05-15 16:03 | RAD REPORT ---
EXAM DESCRIPTION: CT - Chest For Pe Angio - 05/15/2023 3:30 pm CLINICAL HISTORY: Chest pain COMPARISON: December 2022 TECHNIQUE: Dynamically enhanced axial 3 mm thick images of the chest were obtained during administra tion of 100 mL Isovue 370 IV contrast. Coronal and oblique reconstruction images were generated and r eviewed. Exam utilizes a protocol for optimal evaluation of pulmonary arterial tree. Maximum intensity projections 3D imaging was utilized All CT scans are performed using dose optimization technique as appropriate and may include automated exposure control or mA/KV adjustment according to patient size. FINDINGS: A pulmonary embolus is not seen. A thoracic aortic aneurysm is not noted. A pleural effusion is not seen. A pericardial effusion is not seen. A lung consolidation is not present.' Calcified left lung granuloma Stable left adrenal adenoma IMPRESSION: Negative for a pulmonary embolism.
--- NOTE | 2023-05-15 16:14 | P.HP ---
Certification for Inpatient Patient admitted to: Inpatient With expected LOS: >2 Midnights Patient will require the following post-hospital care: None Practitioner: I am a practitioner with admitting privileges, knowledge of patient current condition, hospital course, and medical plan of care. Services: Services provided to patient in accordance with Admission requirements found in Title 42 Section 412.3 of the Code of Federal Regulations Patient History Date of Service: 05/15/23 History of Present Illness: 53-year-old female with history of chronic systolic congestive heart failure, CAD, COPD, hypertension, seizure disorder presents to the emergency department with chief complaint of chest pressure, shortness of breath. She reports her pain began upon waking this morning described as a heaviness with associated shortness of breath. She was recently admitted here on 05/03/2023 and subsequently discharged on 05/05/2023 for influenza B, CHF. She had an echocardiogram performed on 05/04/2023 which showed an ejection fraction of 35 to 40%, moderate global hypokinesis, severe diastolic dysfunction. She was recommended to have an outpatient stress test at that time. She had a heart catheterization performed 11/2021 which demonstrated moderate CAD. She was evaluated in the emergency department today her labs were significant for mildly elevated high-sensitivity troponin initial troponin 80.4 BNP 1012 triglycerides 178 CBC with white blood count 15.2 platelets 451, notably patient was prescribed prednisone at discharge from the hospital for COPD/influenza. She will need to be admitted to the hospital for chest pain, NSTEMI. She reports her pain has improved during her stay in the emergency department EKG without STEMI criteria CTA of the chest negative for pulmonary embolism. Allergies Green tea Allergy (Unknown, Uncoded 01/14/23 19:48) seizures Home Medications: Cyclobenzaprine [Flexeril*] 1 tab PO TID 01/15/23 Divalproex Sodium [Depakote] 250 mg PO BID 01/15/23 Lisinopril [Zestril] 1 tab PO DAILY 01/15/23 Metoprolol Tartrate 1 tab PO DAILY 01/15/23 methocarbamoL [Methocarbamol] 2 tab PO QID 01/15/23 clonazePAM [Klonopin] 1 mg PO BEDTIME 01/16/23 Fluticasone/Umeclidin/Vilanter [Trelegy Ellipta 100-62.5-25] 1 each IH DAILY 30 Days #30 aero 05/04/23 Aspirin [Roxanne Chewable Aspirin] 81 mg PO DAILY #30 tab.chew 05/05/23 Furosemide [Lasix] 40 mg PO DAILY #30 tab 05/05/23 Hydrocodone 5/APAP 325 [[place] 5/325*] 1 tab PO Q6H PRN #10 tab 05/05/23 Nitroglycerin [Nitrostat*] 0.4 mg SL UD PRN #3 tab 05/05/23 Oseltamivir [Tamiflu*] 75 mg PO BID #6 cap 05/05/23 predniSONE [Prednisone*] 20 mg PO BID #10 tab 05/05/23 - Past Medical/Surgical History Diabetic: No -: COPD -: Hypertension -: migraines -: Depression with anxiety -: Pancreatitis -: Coronary artery disease-prior myocardial infarction -: Diverticulitis -: Seizure disorder -: Herniated back disc -: Diverticulitis -: Herniated back disc -: history of seizures -: 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 -: cholecystectomy -: 5 hand surgeries -: tonsilectomy Psychosocial/ Personal History: Lives at home with her boyfriend - Family History Mother -: Heart disease, Hypertension, GI disease, Diabetes, Liver disease, Kidney disease - Social History Smoking Status: Current every day smoker Counseled patient to stop smoking for: less than 10 minutes Alcohol use: No CD- Drugs: No Caffeine use: No Place of Residence: Home Review of Systems 10-point ROS is otherwise unremarkable Respiratory: Shortness of Breath Cardiovascular: Chest Pain Physical Examination - Physical Exam General: Alert, In no apparent distress, Oriented x3 HEENT: Atraumatic, PERRLA, Mucous membr. moist/pink, EOMI, Sclerae nonicteric Neck: Supple, 2+ carotid pulse no bruit, No LAD, Without JVD or thyroid abnormality Respiratory: Clear to auscultation bilaterally, Normal air movement Cardiovascular: Regular rate/rhythm, Normal S1 S2 Capillary refill: <2 Seconds Gastrointestinal: Normal bowel sounds, No tenderness Musculoskeletal: No tenderness Integumentary: No rashes Neurological: Normal gait, Normal speech, Normal strength at 5/5 x4 extr, Normal tone, Normal affect - Studies Laboratory Data (last 24 hrs) 05/15/23 05/15/23 05/15/23 12:27 12:27 12:27 WBC 15.20 H Hgb 14.2 Hct 42.4 Plt Count 451 H PT 10.4 INR 0.95 Sodium Potassium BUN Creatinine Glucose Magnesium Total Bilirubin AST ALT Alkaline Phosphatase Triglycerides 178 H Cholesterol 163 HDL Cholesterol 58 Cholesterol/HDL Ratio 2.81 Lipase 05/15/23 12:27 WBC Hgb Hct Plt Count PT INR Sodium 138 Potassium 3.5 BUN 13 Creatinine 0.74 Glucose 111 H Magnesium 2.0 Total Bilirubin 0.2 AST 9 L ALT 20 Alkaline Phosphatase 66 Triglycerides Cholesterol HDL Cholesterol Cholesterol/HDL Ratio Lipase 37 Assessment and Plan - Plan Assessment: Chest pain, NSTEMIhistory of CAD Chronic systolic congestive heart failure Hypertension COPD Seizure disorder Chronic back/neck pain Depression/anxiety Nicotine dependence Plan: Chest pain, NSTEMIhistory of CAD Aspirin, statin, beta-jennifer, as needed nitro, therapy Lovenox Cardiology consult, last echo 05/04/2023 35 to 40% EF, severe diastolic dysfunction Last heart catheterization 11/2021 with moderate CAD Trend troponin, monitor on telemetry CTA of the chest negative for PE Chronic systolic congestive heart failure Does not appear grossly overloaded continue oral daily Lasix dose Hypertension Continue home medications including metoprolol COPD As needed nebulizer treatments Seizure disorder Valproic acid level less than 3, patient unsure if she has been taking it lately, restart home dose when verified Last seizure about 2 weeks ago Chronic back/neck pain Scheduled procedure with neurosurgery on May for her neck in June 01 for her back Depression/anxiety Continue home medications Nicotine dependence Counseled on need for cessation DVT PPX: Therapeutic Lovenox Code status: Full Discharge Plan: Home Plan to discharge in: 48 Hours - Advance Directives Does patient have a Living Will: No Does patient have a Durable POA for Healthcare: No - Code Status/Comfort Care Code Status Assessed: Yes (Full code) Critical Care: No Time Spent Managing Pts Care (In Minutes): 55
[2023-05-15] MEDS ORDERED: ALBUTEROL 2.5 MG/3 ML NEB SOL NEB PRN (20:40)
[2023-05-15] MEDS ORDERED: NITROGLYCERIN 0.4 MG/TAB SL PRN (20:40)
[2023-05-15 21:01] VITALS: BMI 35.6
[2023-05-15] MEDS: clonazePAM 1 MG TAB PO SCH (21:44)
[2023-05-15] MEDS: ATORVASTATIN 40 MG TAB PO SCH (21:44)
[2023-05-15] MEDS: MORPHINE 2 MG/ML SYR IV PRN (23:13)
[2023-05-15] MEDS: HYDROCODONE/APAP 5/325 MG TAB PO PRN (23:51)
[2023-05-16 04:50] LABS: Absolute Lymphocytes (CBC) 2.8 K/uL (0.7-4.9); Hematocrit 37.7 % (36.0-45.0); Lymphocytes % 27.8 % (15.3-44.8); MCV 89.5 fL (80-100); MPV 6.4 fL (7.6-11.3); Platelets 347 thou/uL (152-406); RBC Red Blood Cell Count 4.21 M/uL (3.86-4.86)
[2023-05-16 05:20] LABS: Potassium 3.6 mEq/L (3.5-5.1)
[2023-05-16 05:24] LABS: Troponin High Sensitivity 552.4 pg/mL (<58.9)
[2023-05-16] MEDS: MORPHINE 2 MG/ML SYR IV PRN ×4 (05:38→23:14)
[2023-05-16] MEDS: ASPIRIN 81 MG CHEWABLE TABLET PO SCH (08:10)
[2023-05-16] MEDS: clonazePAM 1 MG TAB PO SCH ×2 (08:10→20:03)
[2023-05-16] MEDS: FUROSEMIDE 40 MG TABLET PO SCH (08:10)
[2023-05-16] MEDS: HYDROCODONE/APAP 5/325 MG TAB PO PRN ×3 (08:14→21:14)
[2023-05-16] MEDS: METOPROLOL TAR 25 MG TAB PO SCH ×2 (08:30→16:59)
[2023-05-16] MEDS ORDERED: METOPROLOL TAR 25 MG TAB PO SCH (09:00)
[2023-05-16] MEDS ORDERED: methocarbamoL 500 MG TAB PO SCH (09:00)
[2023-05-16] MEDS ORDERED: POTASSIUM CL SA 10 MEQ TAB PO ONE (09:00)
[2023-05-16] MEDS ORDERED: ENOXAPARIN 100 MG/ML SYR SQ SCH (09:00)
[2023-05-16] MEDS: Fluticasone/Umeclidin/Vilanter [Trelegy Ellipta 100-62.5-25] Blst.W.Dev IH SCH (09:00)
[2023-05-16] MEDS: CYCLOBENZAPRINE 10 MG TAB PO SCH ×4 (09:53→20:04)
[2023-05-16] MEDS: DIVALPROEX DR 250 MG TAB PO SCH ×2 (09:54→20:03)
[2023-05-16] MEDS ORDERED: INFLUENZA VACCINE (for 6+ mo) 0.5 ML DOSE IMVAC ONE (11:00)
--- NOTE | 2023-05-16 12:39 | P.PN ---
Subjective Date of Service: 05/16/23 Subjective: Improving Chest pain improving <Jose Izquierdo - Last Filed: 05/16/23 12:35> Date of Service: 05/16/23 <Rajeev Holguin - Last Filed: 05/16/23 16:59> Review of Systems 10-point ROS is otherwise unremarkable Cardiovascular: Chest Pain Musculoskeletal: Neck Pain, Back Pain <Jose Izquierdo - Last Filed: 05/16/23 12:35> Physical Examination - Vital Signs Temperature: 96.9 F Blood Pressure: 103/74 Pulse: 78 Respirations: 18 Pulse Ox (%): 97 - Physical Exam General: Alert, In no apparent distress, Oriented x3 HEENT: Atraumatic, PERRLA, EOMI Neck: Supple, JVD not distended Respiratory: Clear to auscultation bilaterally, Normal air movement Cardiovascular: No edema, Regular rate/rhythm, Normal S1 S2 Capillary refill: <2 Seconds Gastrointestinal: Normal bowel sounds, No tenderness Musculoskeletal: No tenderness Integumentary: No rashes Neurological: Normal speech, Normal tone, Normal affect Lymphatics: No axilla or inguinal lymphadenopathy - Studies Laboratory Data (last 24 hrs) 05/15/23 05/15/23 05/15/23 12:27 12:27 12:27 WBC 15.20 H Hgb 14.2 Hct 42.4 Plt Count 451 H PT 10.4 INR 0.95 Sodium Potassium BUN Creatinine Glucose Magnesium Total Bilirubin AST ALT Alkaline Phosphatase Triglycerides 178 H Cholesterol 163 HDL Cholesterol 58 Cholesterol/HDL Ratio 2.81 Lipase 05/15/23 12:27 WBC Hgb Hct Plt Count PT INR Sodium 138 Potassium 3.5 BUN 13 Creatinine 0.74 Glucose 111 H Magnesium 2.0 Total Bilirubin 0.2 AST 9 L ALT 20 Alkaline Phosphatase 66 Triglycerides Cholesterol HDL Cholesterol Cholesterol/HDL Ratio Lipase 37 Medications List Reviewed: Yes <Jose Izquierdo - Last Filed: 05/16/23 12:35> Assessment And Plan - Plan Assessment: Chest pain, NSTEMIhistory of CAD Chronic systolic congestive heart failure Hypertension COPD Seizure disorder Chronic back/neck pain Depression/anxiety Nicotine dependence Plan: Chest pain, NSTEMIhistory of CAD Aspirin, statin, beta-jennifer, as needed nitro, heparin drip Cardiology consult, last echo 05/04/2023 35 to 40% EF, severe diastolic dysfunction Last heart catheterization 11/2021 with moderate CAD Troponin trending up, additional labs added, monitor on telemetry Chest pain proving CTA of the chest negative for PE Appreciate further input from cardiology Chronic systolic congestive heart failure Does not appear grossly overloaded continue oral daily Lasix dose Hypertension Continue home medications including metoprolol COPD As needed nebulizer treatments Seizure disorder We will restart seizure medication Chronic back/neck pain Scheduled procedure with neurosurgery on May for her neck in June 01 for her back Depression/anxiety Continue home medications Nicotine dependence Counseled on need for cessation DVT PPX: Therapeutic Lovenox Code status: Full Discharge Plan: Home Plan to discharge in: 48 Hours - Code Status/Comfort Care Code Status Assessed: Yes (Full code) Critical Care: No Time Spent Managing PTS Care (In Minutes): 55 <Jose Izquierdo - Last Filed: 05/16/23 12:35> Physician Review: Patient Assessed, Agree with Above Assessment and Plan <Rajeev Holguin - Last Filed: 05/16/23 16:59>
--- NOTE | 2023-05-16 16:01 | P.CNS ---
Date of Consult: 05/16/23 Reason for Consult: Chest pain and elevated troponin Chief Complaint: Chest pain History of Present Illness: This is a very pleasant 53-year-old female with past medical history of tobacco use hypertension hyperlipidemia who is here with substernal chest pain radiated to the left arm. She smoked a pack a day for close to 40 years now cut down to half pack a day. Patient denies any nausea vomiting fevers or chills Allergies levetiracetam [From [facility]] Allergy (Verified 05/15/23 21:02) Anaphylaxis Green tea Allergy (Mild, Uncoded 05/15/23 21:02) seizures Home medications list reviewed: Yes Home Medications: Cyclobenzaprine [Flexeril*] 1 tab PO TID 01/15/23 Divalproex Sodium [Depakote] 250 mg PO BID 01/15/23 Metoprolol Tartrate 1 tab PO DAILY 01/15/23 methocarbamoL [Methocarbamol] 2 tab PO QID 01/15/23 clonazePAM [Klonopin] 1 mg PO BEDTIME 01/16/23 Fluticasone/Umeclidin/Vilanter [Trelegy Ellipta 100-62.5-25] 1 each IH DAILY 30 Days #30 aero 05/04/23 Aspirin [Roxanne Chewable Aspirin] 81 mg PO DAILY #30 tab.chew 05/05/23 Furosemide [Lasix] 40 mg PO DAILY #30 tab 05/05/23 Nitroglycerin [Nitrostat*] 0.4 mg SL UD PRN #3 tab 05/05/23 Hydrocodone 10/APAP 325 [[place] 10/325*] 2 tab PO Q4HR PRN 05/15/23 - Past Medical/Surgical History Diabetic: No -: COPD -: Hypertension -: migraines -: Depression with anxiety -: Pancreatitis -: Coronary artery disease-prior myocardial infarction -: Diverticulitis -: Seizure disorder -: Herniated back disc -: Diverticulitis -: Herniated back disc -: history of seizures -: 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 -: cholecystectomy -: 5 hand surgeries -: tonsilectomy Psychosocial/ Personal History: Lives at home with her boyfriend - Family History Father Medical History: Hypertension, Other (see notes) Notes: No premature coronary disease Mother Medical History: Heart disease, Hypertension, GI disease, Diabetes, Liver disease, Kidney disease - Social History Smoking Status: Current every day smoker Alcohol use: Yes CD- Drugs: Yes Caffeine use: No Place of Residence: Home Review of Systems 10-point ROS is otherwise unremarkable Physical Examination Temp Pulse Resp BP Pulse Ox 96.9 F 78 18 103/74 98 05/16/23 12:38 05/16/23 12:38 05/16/23 15:07 05/16/23 12:38 05/16/23 15:07 General: Oriented x3 HEENT: Atraumatic Neck: Supple Respiratory: Clear to auscultation bilaterally Cardiovascular: Regular rate/rhythm Gastrointestinal: Soft and benign Neurological: Normal speech Conclusions/Impression: 1. Chest pain: Patient was ruled in for an NSTEMI: She says she had coronary angiogram done close to 3 years ago and showed moderate coronary artery disease, will continue with heparin drip aspirin statin and will plan for coronary angiogram on Thursday 2. Tobacco use: Patient was counseled to quit tobacco
[2023-05-16] MEDS: ATORVASTATIN 40 MG TAB PO SCH (20:03)
[2023-05-16] MEDS: HEPARIN/D5W 25,000 UNIT/500 ML BAG IV SCH (23:18)
[2023-05-17] MEDS: HYDROCODONE/APAP 5/325 MG TAB PO PRN ×3 (03:00→14:35)
[2023-05-17] MEDS: METOPROLOL TAR 25 MG TAB PO SCH ×2 (06:39→17:49)
[2023-05-17 06:42] LABS: Absolute Lymphocytes (CBC) 2.5 K/uL (0.7-4.9); Lymphocytes % 30.9 % (15.3-44.8); MCV 88.9 fL (80-100); MPV 6.4 fL (7.6-11.3); Platelets 331 thou/uL (152-406)
[2023-05-17 07:01] LABS: Potassium 3.7 mEq/L (3.5-5.1)
[2023-05-17] MEDS: DIVALPROEX DR 250 MG TAB PO SCH ×2 (08:35→19:41)
[2023-05-17] MEDS: CYCLOBENZAPRINE 10 MG TAB PO SCH ×3 (08:36→19:42)
[2023-05-17] MEDS: FUROSEMIDE 40 MG TABLET PO SCH (08:36)
[2023-05-17] MEDS: ASPIRIN 81 MG CHEWABLE TABLET PO SCH (08:36)
[2023-05-17] MEDS: Fluticasone/Umeclidin/Vilanter [Trelegy Ellipta 100-62.5-25] Blst.W.Dev IH SCH (08:37)
--- NOTE | 2023-05-17 09:19 | P.PN ---
Subjective Date of Service: 05/17/23 Chief Complaint: Chest pain Chest pain continues to improve <Jose Izquierdo - Last Filed: 05/17/23 09:16> Date of Service: 05/17/23 <Rajeev Holguin - Last Filed: 05/17/23 16:22> Review of Systems 10-point ROS is otherwise unremarkable Cardiovascular: Chest Pain <Jose Izquierdo - Last Filed: 05/17/23 09:16> Physical Examination - Vital Signs Temperature: 96.4 F Blood Pressure: 119/78 Pulse: 82 Respirations: 16 Pulse Ox (%): 97 - Physical Exam General: Alert, In no apparent distress, Oriented x3 HEENT: Atraumatic, PERRLA Neck: Supple Respiratory: Clear to auscultation bilaterally, Normal air movement Cardiovascular: Regular rate/rhythm, Normal S1 S2 Gastrointestinal: Normal bowel sounds, No tenderness Musculoskeletal: No tenderness Integumentary: No rashes Neurological: Normal speech, Normal tone, Normal affect - Studies Microbiology Data (last 24 hrs): 05/15/23 13:18 Clean Catch Urine [place] Count - Final <10,000 CFU/ML. 05/15/23 13:18 Clean Catch Urine - Final MIXED REBEL. Medications List Reviewed: Yes <Jose Izquierdo - Last Filed: 05/17/23 09:16> - Studies Microbiology Data (last 24 hrs): 05/15/23 13:18 Clean Catch Urine [place] Count - Final <10,000 CFU/ML. 05/15/23 13:18 Clean Catch Urine - Final MIXED REBEL. <Rajeev Holguin - Last Filed: 05/17/23 16:22> Assessment And Plan - Plan Assessment: Chest pain, NSTEMIhistory of CAD Chronic systolic congestive heart failure Hypertension COPD Seizure disorder Chronic back/neck pain Depression/anxiety Nicotine dependence Plan: Chest pain, NSTEMIhistory of CAD Aspirin, statin, beta-jennifer, as needed nitro, heparin drip Cardiology consult, last echo 05/04/2023 35 to 40% EF, severe diastolic dysfunction Last heart catheterization 11/2021 with moderate CAD Troponin peaked at 552, now downtrending Chest pain improving CTA of the chest negative for PE Plan for [facility] Thursday Chronic systolic congestive heart failure Does not appear grossly overloaded continue oral daily Lasix dose Hypertension Continue home medications including metoprolol COPD As needed nebulizer treatments Seizure disorder We will restart seizure medication Chronic back/neck pain Scheduled procedure with neurosurgery on May for her neck in June 01 for her back Depression/anxiety Continue home medications Nicotine dependence Counseled on need for cessation DVT PPX: Therapeutic Lovenox Code status: Full Discharge Plan: Home Plan to discharge in: 24 Hours - Code Status/Comfort Care Code Status Assessed: Yes (Full code) Physician Review: Patient Assessed, Agree with Above Assessment and Plan Critical Care: No Time Spent Managing PTS Care (In Minutes): 35 <Jose Izquierdo - Last Filed: 05/17/23 09:16> Physician Review: Patient Assessed, Agree with Above Assessment and Plan Physician Review Additional Text: Her chest pain is improving. Cardiology planning for [facility] tomorrow. Dr. Fry to take over as attending physician tomorrow. <Rajeev Holguin - Last Filed: 05/17/23 16:22>
[2023-05-17] MEDS: MORPHINE 2 MG/ML SYR IV PRN ×2 (12:29→19:40)
--- NOTE | 2023-05-17 12:59 | P.PN ---
Subjective Date of Service: 05/17/23 Chief Complaint: Chest pain Subjective: New changes, Doing well Physical Examination - Vital Signs Temperature: 96.4 F Blood Pressure: 119/78 Pulse: 82 Respirations: 16 Pulse Ox (%): 97 - Physical Exam General: Alert, In no apparent distress HEENT: Normocephalic, PERRLA Neck: Supple Respiratory: Clear to auscultation bilaterally Cardiovascular: No edema, Regular rate/rhythm Gastrointestinal: Normal bowel sounds Musculoskeletal: No contractures, No erythema Neurological: Normal speech, Normal affect - Studies Microbiology Data (last 24 hrs): 05/15/23 13:18 Clean Catch Urine [place] Count - Final <10,000 CFU/ML. 05/15/23 13:18 Clean Catch Urine - Final MIXED REBEL. Medications List Reviewed: Yes Assessment And Plan - Plan 1. Chest pain: Patient was ruled in for an NSTEMI: She says she had coronary angiogram done close to 3 years ago and showed moderate coronary artery disease, will continue with heparin drip aspirin statin and will plan for coronary angiogram on Thursday 2. Tobacco use: Patient was counseled to quit tobacco Physician Review: Patient Assessed, Agree with Above Assessment and Plan
--- NOTE | 2023-05-17 13:48 | P.PN ---
Subjective Date of Service: 05/17/23 Chief Complaint: Chest pain Subjective: No new changes, Doing well Physical Examination - Vital Signs Temperature: 96.4 F Blood Pressure: 119/78 Pulse: 82 Respirations: 16 Pulse Ox (%): 97 - Physical Exam General: In no apparent distress HEENT: Atraumatic Neck: Supple Respiratory: Clear to auscultation bilaterally Cardiovascular: No edema Gastrointestinal: No tenderness Neurological: Normal speech - Studies Microbiology Data (last 24 hrs): 05/15/23 13:18 Clean Catch Urine [place] Count - Final <10,000 CFU/ML. 05/15/23 13:18 Clean Catch Urine - Final MIXED REBEL. Medications List Reviewed: Yes Assessment And Plan - Plan 1. Chest pain: Patient was ruled in for an NSTEMI: She says she had coronary angiogram done close to 3 years ago and showed moderate coronary artery disease, will continue with heparin drip aspirin statin and will plan for coronary angiogram on Thursday 2. Tobacco use: Patient was counseled to quit tobacco Physician Review: Patient Assessed, Agree with Above Assessment and Plan
[2023-05-17] MEDS ORDERED: HEPARIN 5000 UNIT/ML 1 ML VIAL IV SCH (18:00)
[2023-05-17] MEDS: clonazePAM 1 MG TAB PO SCH (19:41)
[2023-05-17] MEDS: ATORVASTATIN 40 MG TAB PO SCH (19:42)
[2023-05-17] MEDS: ONDANSETRON 4 MG/2 ML VIAL IV PRN (19:43)
[2023-05-18] MEDS: MORPHINE 2 MG/ML SYR IV PRN ×4 (01:34→21:35)
[2023-05-18] MEDS: ONDANSETRON 4 MG/2 ML VIAL IV PRN ×2 (01:34→18:00)
[2023-05-18] MEDS: HEPARIN/D5W 25,000 UNIT/500 ML BAG IV SCH (01:39)
[2023-05-18 01:55] LABS: Hematocrit 40.4 % (36.0-45.0); Lymphocytes % 31.8 % (15.3-44.8); MCV 89.8 fL (80-100); MPV 6.4 fL (7.6-11.3); Platelets 361 thou/uL (152-406)
[2023-05-18] MEDS: METOPROLOL TAR 25 MG TAB PO SCH ×2 (06:06→17:57)
[2023-05-18] MEDS: HYDROCODONE/APAP 5/325 MG TAB PO PRN ×2 (06:08→13:07)
--- NOTE | 2023-05-18 06:57 | P.PN ---
Subjective Date of Service: 05/18/23 Chief Complaint: Chest pain Subjective: Other (chest pain 02/26, reports some relief with PRN pain medications, she reports history of heart failure at "30%" reports history of frequent hospital admissions for chest pain. No reported NV.) <Eileen Mason - Last Filed: 05/18/23 15:03> Date of Service: 05/19/23 <Darrick Fryl - Last Filed: 05/19/23 08:46> Review of Systems 10-point ROS is otherwise unremarkable <Eileen Mason - Last Filed: 05/18/23 15:03> Physical Examination - Vital Signs Temperature: 96.8 F Blood Pressure: 122/83 Pulse: 88 Respirations: 20 Pulse Ox (%): 99 - Physical Exam General: Alert, In no apparent distress, Oriented x3 HEENT: Atraumatic, Normocephalic, PERRLA Neck: Supple, 2+ carotid pulse no bruit, JVD not distended Respiratory: Clear to auscultation bilaterally, Normal air movement Cardiovascular: No edema, Normal pulses, Regular rate/rhythm Capillary refill: <2 Seconds Gastrointestinal: Normal bowel sounds, Soft and benign Musculoskeletal: No clubbing, No swelling Integumentary: No rashes, No breakdown Neurological: Normal gait, Normal speech, Normal strength at 5/5 x4 extr - Studies Microbiology Data (last 24 hrs): 05/15/23 13:18 Clean Catch Urine [place] Count - Final <10,000 CFU/ML. 05/15/23 13:18 Clean Catch Urine - Final MIXED REBEL. Medications List Reviewed: Yes <Eileen Mason - Last Filed: 05/18/23 15:03> Assessment And Plan - Plan Assessment/Plan Chest pain, NSTEMIhistory of CAD Aspirin, statin, beta-jennifer, as needed nitro, heparin drip Cardiology consult, last echo 05/04/2023 35 to 40% EF, severe diastolic dysfunction Last heart catheterization 11/2021 with moderate CAD Troponin peaked at 552, now downtrending Chest pain improving CTA of the chest negative for PE 05/18 [facility] Thursday - results no evidence of obstructive heart disease Plan to follow up with cardiology 7-10 after discharge, please call office for Follow up appt Chronic systolic congestive heart failure Does not appear grossly overloaded continue oral daily Lasix dose Hypertension Continue home medications including metoprolol COPD As needed nebulizer treatments Seizure disorder We will restart seizure medication Chronic back/neck pain Scheduled procedure with neurosurgery on May for her neck in June 01 for her back Depression/anxiety Continue home medications Nicotine dependence Counseled on need for cessation she reports using Chantex rx with some sucess DVT PPX: Therapeutic Lovenox Code status: Full Discharge Plan: Home Plan to discharge in: 24 Hours Discharge Plan: Home - Code Status/Comfort Care Code Status: Full Code Physician Review: Patient Assessed, Agree with Above Assessment and Plan Critical Care: No Time Spent Managing PTS Care (In Minutes): 35 <Eileen Mason - Last Filed: 05/18/23 15:03> Date of Service: 05/18/23 Patient seen and examined. Patient is clinically doing well. Cardiac catheterization results were unremarkable. No significant lesions. Patient is stable for discharge. However, she did not feel she was ready to go home this evening. Plan to discharge her in a.m. <Darrick Fry - Last Filed: 05/19/23 08:46>
[2023-05-18] MEDS: DIVALPROEX DR 250 MG TAB PO SCH ×2 (07:49→20:17)
[2023-05-18] MEDS: ASPIRIN 81 MG CHEWABLE TABLET PO SCH (07:49)
[2023-05-18] MEDS: CYCLOBENZAPRINE 10 MG TAB PO SCH ×3 (07:49→20:17)
[2023-05-18] MEDS: FUROSEMIDE 40 MG TABLET PO SCH (07:50)
[2023-05-18] MEDS: Fluticasone/Umeclidin/Vilanter [Trelegy Ellipta 100-62.5-25] Blst.W.Dev IH SCH (09:00)
[2023-05-18] MEDS ORDERED: MIDAZOLAM HCL 2 MG/2 ML INJ ONE (11:34)
[2023-05-18] MEDS ORDERED: FENTANYL CITR 100 MCG/2 ML ONE (11:34)
[2023-05-18] MEDS ORDERED: HEPA 1000U/500MLS 2,000 UNIT/1,000 ML BAG IV ONE (11:34)
[2023-05-18] MEDS ORDERED: LIDOCAINE 1% 20 ML MDV ONE (11:34)
[2023-05-18] MEDS ORDERED: HEPARIN 5000 UNIT/ML 1 ML VIAL ONE (11:34)
[2023-05-18] MEDS ORDERED: TICAGRELOR 90 MG TABLET PO ONE (11:35)
[2023-05-18] MEDS ORDERED: ATROPINE SULF 1 MG/10 ML SYR IV ONE (11:35)
[2023-05-18] MEDS ORDERED: ASPIRIN 325 MG TAB ONE (11:35)
[2023-05-18] MEDS ORDERED: CLOPIDOGREL 75 MG TABLET ONE (11:35)
[2023-05-18] MEDS ORDERED: HEPARIN 10,000 UNIT/10 ML VIAL IV ONE (11:35)
[2023-05-18] MEDS ORDERED: VERAPAMIL HCL 10 MG/4 ML VIAL IV ONE (11:35)
[2023-05-18] MEDS ORDERED: NA CHLORIDE 0.9% 500 ML ONE (12:00)
[2023-05-18] MEDS ORDERED: LORazepam 2 MG/ML VIAL IV ONE (13:00)
[2023-05-18] MEDS ORDERED: HYDROCODONE/APAP 5/325 MG TAB ONE (13:20)
--- NOTE | 2023-05-18 13:26 | OP ---
Date of Procedure: 05/18/2023 Surgeon: HUE ROJAS Procedures Performed: 1.Selective coronary angiogram. 2.Left heart catheterization. Indication: [id number] myocardial infarction. Access: Right radial artery 6-Bahamian closed with TR band. Complications: None. Bleeding: Less than 20 mL. Description Of Procedure: After risks, benefits, and alternatives were explained, patient agreed to procedure and signed informal consent. Patient was brought into cardiac catheterization laboratory, prepped and draped in the usual sterile fashion. Sedation was given in incremental doses to achieve adequate moderate sedation. Then, I accessed right radial artery using pediatric micropuncture kit, placed 6-Bahamian Slender sheath and took 5-Bahamian [place] 4.0 catheter into the aortic root over a J-wir e, engaged the left main and then right coronary artery and took standard views and then catheter was pushed over the wire into the LV, measured the LVEDP. Pullback did not record any gradient. Then I removed the catheter and the sheath, placed TR band with good hemostasis. Findings: 1.Left main; large, short, normal. 2.LAD; large vessel, normal. Normal diagonal branches. Mid to distal LAD with luminal irregulariti es. 3.Left circumflex; moderate size, normal with luminal irregularities. 4.RCA; large and dominant, mid 40%, but very large lumen. 5.LVEDP normal at 11 mmHg. Conclusion: Mild nonobstructive coronary artery disease. Plan: Medical management. From cardiology standpoint, patient can be released. Follow up as an out patient. SR/MODL Voice ID: [id number] Report ID: [id number]
--- NOTE | 2023-05-18 13:32 | PN ---
Date of Progress Note: 05/18/2023 Subjective: Seen by bedside. Is anxious about having coronary angiogram, but no chest pain. Review of Systems: No chest pain, shortness of breath, orthopnea, or cough. No nausea, vomiting, or diarrhea. All othe r systems were reviewed, they were negative. Objective: Vital Signs: Reviewed. Head and Neck: Pupils are equal, reactive to light. Intact eye movements. No JVD. No cervical lym phadenopathy. Neck is supple. Thyroid is not enlarged. Lungs: Clear to auscultation bilaterally. No rhonchi, wheezing, or crackles. No accessory muscle u se. Heart: Regular rate and rhythm. No extra sounds. Abdomen: Soft, nontender. Bowel sounds are positive. No organomegaly. No masses or hernia. No ri gidity or rebound. Extremities: No edema clubbing, or cyanosis. Intact pulses. Skin: No rash or nodule. Neurologic: Alert, awake, oriented x3. No acute focal deficits appreciated. Investigation: Labs were reviewed. Assessment And Recommendations: 1.Oul-DM-zirhzcfvf myocardial infarction. Coronary angiogram was done today and then there is mild coronary artery disease. This is a demand ischemia. I recommend baby aspirin and high-dose statin, Lipitor 40 mg q.h.s. 2.Dyslipidemia. Recommend Lipitor 40 mg q.h.s. as she has mild coronary artery disease. 3.Hypertension. Blood pressure is borderline elevated. Recommend amlodipine 5 mg daily. SR/MODL Voice ID: [id number] Report ID: [id number]
[2023-05-18 14:09] VITALS: O2SAT 95
[2023-05-18] MEDS ORDERED: ALBUTEROL 2.5 MG/3 ML NEB SOL NEB PRN (15:00)
[2023-05-18] MEDS: clonazePAM 1 MG TAB PO SCH (20:17)
[2023-05-18] MEDS: ATORVASTATIN 40 MG TAB PO SCH (20:17)
[2023-05-19] MEDS: MORPHINE 2 MG/ML SYR IV PRN ×2 (03:58→10:11)
[2023-05-19] MEDS: METOPROLOL TAR 25 MG TAB PO SCH (06:38)
[2023-05-19] MEDS: HYDROCODONE/APAP 5/325 MG TAB PO PRN (06:41)
[2023-05-19 07:34] VITALS: BP 123/76; TEMP 98
--- NOTE | 2023-05-19 08:52 | P.DS ---
Discharge Date: 05/19/23 Disposition: ROUTINE DISCHARGE Discharge Condition: GOOD Reason for Admission: Chest pain Consultations: Cardiology Brief History of Present Illness: Patient is a 53-year-old female with history of chronic systolic congestive heart failure, CAD, COPD, hypertension, seizure disorder presents to the emergency department with chief complaint of chest pressure, shortness of breath. She reports her pain began upon waking this morning described as a heaviness with associated shortness of breath. She was recently admitted here on 05/03/2023 and subsequently discharged on 05/05/2023 for influenza B, CHF. S he had an echocardiogram performed on 05/04/2023 which showed an ejection fraction of 35 to 40%, moderate global hypokinesis, severe diastolic dysfunction. She was recommended to have an outpatient stress test at that time. She had a heart catheterization performed 11/2021 which demonstrated moderate CAD. She was evaluated in the emergency department today her labs were significant for mildly elevated high-sensitivity troponin initial troponin 80.4 BNP 1012 triglycerides 178 CBC with white blood count 15.2 platelets 451, notably patient was prescribed prednisone at discharge from the hospital for COPD/influenza. She will need to be admitted to the hospital for chest pain, NSTEMI. She reports her pain has improved during her stay in the emergency department EKG without STEMI criteria CTA of the chest negative for pulmonary embolism. Hospital Course: Patient had intervention performed and cardiac catheterization results as below: 1. Left main; large, short, normal. 2. LAD; large vessel, normal. Normal diagonal branches. Mid to distal LAD with luminal irregularities. 3. Left circumflex; moderate size, normal with luminal irregularities. 4. RCA; large and dominant, mid 40%, but very large lumen. 5. LVEDP normal at 11 mmHg. Patient is clinically doing well and patient is stable for discharge with outpatient follow-up with primary care provider. Since patient with no significant coronary lesions her cardiac status is not expected to worsen over the next couple of years. If she does have chest pain she needs to be evaluated for pulmonary etiology or an etiology that may not be related to atherosclerosis of the coronary arteries. At this time, patient is stable for discharge with outpatient follow-up. Vital Signs/Physical Exam: Temp Pulse Resp BP Pulse Ox 98 F 89 14 123/76 94 05/19/23 07:32 05/19/23 07:32 05/19/23 07:32 05/19/23 07:32 05/19/23 07:32 General: Alert, In no apparent distress, Oriented x3 Laboratory Data at Discharge: WBC 9.30 thou/uL (4.3-10.9) 05/18/23 01:36 Hgb 13.6 g/dL (12.0-15.0) 05/18/23 01:36 Hct 40.4 % (36.0-45.0) 05/18/23 01:36 Plt Count 361 thou/uL (152-406) 05/18/23 01:36 PT 10.4 SECONDS (9.5-12.5) 05/15/23 12:27 INR 0.95 05/15/23 12:27 APTT 61.8 SECONDS (24.3-36.9) H 05/18/23 01:36 Sodium 139 mEq/L (136-145) 05/18/23 01:36 Potassium 4.0 mEq/L (3.5-5.1) 05/18/23 01:36 BUN 13 mg/dL (7-18) 05/18/23 01:36 Creatinine 0.87 mg/dL (0.55-1.02) 05/18/23 01:36 Glucose 112 mg/dL (74-106) H 05/18/23 01:36 Magnesium 2.0 mg/dL (1.6-2.4) 05/15/23 12:27 Total Bilirubin 0.2 mg/dL (0.2-1.0) 05/15/23 12:27 AST 9 U/L (15-37) L 05/15/23 12:27 ALT 20 U/L (13-56) 05/15/23 12:27 Alkaline Phosphatase 66 U/L (45-117) 05/15/23 12:27 Triglycerides 178 mg/dL (<150) H 05/15/23 12:27 Cholesterol 163 mg/dL (<200) 05/15/23 12:27 HDL Cholesterol 58 mg/dL (40-60) 05/15/23 12:27 Cholesterol/HDL Ratio 2.81 05/15/23 12:27 Lipase 37 U/L (13-75) 05/15/23 12:27 Home Medications: Cyclobenzaprine [Flexeril*] 1 tab PO TID 01/15/23 Divalproex Sodium [Depakote] 250 mg PO BID 01/15/23 Metoprolol Tartrate 1 tab PO DAILY 01/15/23 methocarbamoL [Methocarbamol] 2 tab PO QID 01/15/23 clonazePAM [Klonopin] 1 mg PO BEDTIME 01/16/23 Fluticasone/Umeclidin/Vilanter [Trelegy Ellipta 100-62.5-25] 1 each IH DAILY 30 Days #30 aero 05/04/23 Aspirin [Roxanne Chewable Aspirin] 81 mg PO DAILY #30 tab.chew 05/05/23 Furosemide [Lasix*] 40 mg PO DAILY #30 tab 05/05/23 Nitroglycerin [Nitrostat*] 0.4 mg SL UD PRN #3 tab 05/05/23 Cyclobenzaprine [Flexeril*] 10 mg PO TID tab 05/19/23 Furosemide [Lasix*] 40 mg PO DAILY tab 05/19/23 Metoprolol Tartrate [Lopressor*] 25 mg PO BID 6AM 6PM tab 05/19/23 Nitroglycerin [Nitrostat*] 0.4 mg SL UD PRN tab 05/19/23 clonazePAM [Klonopin*] 1 mg PO BEDTIME tab 05/19/23 Physician Discharge Instructions: -DC IV and DC home -Follow-up with PCP in 1 to 2 weeks -Follow-up with Cardiology in 1 to 2 weeks -Please call Dr. Fry at [phone] if any questions regarding hospital stay -Please call nursing station at [phone] if any nursing or medication questions -Return to the emergency room if symptoms worsen -Cardiac diet -Walk as tolerated, using safety to stand -Return to ED if symptoms return -No new medications this admission Diet: AHA Activity: Fall precautions Followup: CURT HUYNH [Primary Care Provider] - Time spent managing pt's care (in minutes): 35
[2023-05-19] MEDS ORDERED: FUROSEMIDE 40 MG TABLET PO SCH (09:00)
[2023-05-19] MEDS: Fluticasone/Umeclidin/Vilanter [Trelegy Ellipta 100-62.5-25] Blst.W.Dev IH SCH (09:00)
[2023-05-19] MEDS: ASPIRIN 81 MG CHEWABLE TABLET PO SCH (09:22)
[2023-05-19] MEDS: CYCLOBENZAPRINE 10 MG TAB PO SCH (09:22)
[2023-05-19] MEDS: DIVALPROEX DR 250 MG TAB PO SCH (09:23)
== END 2023-05-19 12:54 | disposition home or self-care (01) | DRG 281 ==
LOC: ER 11:49 → ERHOLD 16:01 → 4TH 19:15
PROVIDERS: ADMIT Internal Medicine; ATTEND Hospitalist
PROC: 4A023N7 Measurement of Cardiac Sampling and Pressure, Left Heart, Percutaneous Approach (ICD-10-PCS; principal; 2023-05-18)
PROC: B2111ZZ Fluoroscopy of Multiple Coronary Arteries using Low Osmolar Contrast (ICD-10-PCS; 2023-05-18)
DX: I21.4 Non-ST elevation (NSTEMI) myocardial infarction (principal); I50.22 Chronic systolic (congestive) heart failure; I11.0 Hypertensive heart disease with heart failure; M19.90 Unspecified osteoarthritis, unspecified site; G89.29 Other chronic pain; M54.2 Cervicalgia; M54.9 Dorsalgia, unspecified; E78.5 Hyperlipidemia, unspecified; D72.829 Elevated white blood cell count, unspecified; J44.9 Chronic obstructive pulmonary disease, unspecified; F32.A Depression, unspecified; F41.9 Anxiety disorder, unspecified; G40.909 Epilepsy, unspecified, not intractable, without status epilepticus; I25.110 Atherosclerotic heart disease of native coronary artery with unstable angina pectoris; F17.200 Nicotine dependence, unspecified, uncomplicated; I25.2 Old myocardial infarction; Z71.6 Tobacco abuse counseling; Z88.8 Allergy status to other drugs, medicaments and biological substances; Z90.49 Acquired absence of other specified parts of digestive tract; Z79.52 Long term (current) use of systemic steroids; Z91.09 Other allergy status, other than to drugs and biological substances; Z79.82 Long term (current) use of aspirin; Z85.41 Personal history of malignant neoplasm of cervix uteri; Z79.899 Other long term (current) drug therapy
CPT/HCPCS: 36415; 71045; 71275; 76937; 80048; 80061; 80076; 80164; 81001; 83605; 83690; 83735; 83880; 84484; 85025; 85610; 85730; 87040; 87086; 87088; 93005; 93458; 96361; 96365; 96372; 96375; 99285; C1893; J0461; J0696; J1644; J1650; J2001; J2250; J2270; J2405; J3010; J7030; J7040; Q9966; Q9967

== ENCOUNTER 2023-06-12 19:56 | Emergency (ER) | payer OTHER ==
--- OUTSIDE RECORDS SUMMARY | 2023-06-12 20:11 | XMS REPORT | Continuity of Care Document ---
:1970 Author Organization [facility] t Address [address] [place] [address] Care Team Providers Name Role Phone Aneta Silva Primary Care Physician [phone] ADAM GARCIA Attending Clinician Unavailable THOMAS LOZOYA Attending Clinician Unavailable MARIAH ALDRIDGE Attending Clinician Unavailable Adam Garcia MD Attending Clinician Harry Newsome MD Attending Clinician Rocael ELIZONDO, Antwon Mccrary Attending Clinician Yue Bui MD Attending Clinician Connie Davey MD Attending Clinician Mariah Aldridge MD Attending Clinician Thomas Lozoya MD Attending Clinician [phone] CONNIE DAVEY Attending Clinician Unavailable Alfonso ALVARADO Attending Clinician Unavailable Alfonso Lopez Attending Clinician RITCHIE WARREN Attending Clinician Unavailable Ritchie Warren MD Attending Clinician Shy Beckman RN Attending Clinician Reji ELIZONDO, Halima Hummel Attending Clinician Lucho ELIZONDO, Jen Olivia Attending Clinician Roxi ELIZONDO, Parrish Reyez Attending Clinician [phone] ROXI, PARRISH CR Attending Clinician Unavailable LORENZA LOWRY Attending Clinician Unavailable Sav Rondon MD Attending Clinician Lorenza Lowry MD Attending Clinician Maria Teresa Nicole LVN Attending Clinician CHANTEL MATTHEWS Attending Clinician Unavailable CHANTEL MATTHEWS Attending Clinician Unavailable Brandyn Ibrahim MD Attending Clinician SELINA MARTINES Attending Clinician Unavailable Sapna Vargas DO Attending Clinician Glory Sarah MD Attending Clinician [phone] Selina Martines MD Attending Clinician Vaccine, Radisson Collettei Attending Clinician Unavailable Jose Pak MD Attending Clinician JOSE PAK Attending Clinician Unavailable NICHELLE VIRK Attending Clinician Unavailable Nichelle Bishop Attending Clinician Doctor Unassigned, [place] Attending Clinician Unavailable Brandy CAMPOS, Miky Attending [...] Number Effective Date Expiration Date Benjamin RICARDO [id number] 2023 00:00:00 MEDICAID PENDING PENDING 2022 00:00:00 Problems Condition Condition Condition Status Onset Resolution Last Treating Co mments Source Name Details Category Date Date Treatment Clinician Date Cervical Cervical Disease Recurre 2022-[address] [facility] myelopathy myelopathy nce 1-09 [facility] 00:00: Medical 00 [place] Cervical Cervical Disease Active 2022[facility] disorder disorder 00:[facility]: Medica l with with 00 Center myelopathy myelopathy , high , high cervical cervical region region Cord Cord Disease Recurre [facility] compressio compressio nce 9-11 [facility] n n 00:00: Medical 00 Center Cauda Cauda Disease Recurre [facility] equina equina nce 9-11 [facility] compressio compressio 00:00: Me dical n n 00 Center Seizure Seizure Disease Recurre [facility] 1-14 [facility] 00:[facility]: Medical 00 Center Cardiomyop Cardiomyop Disease Active U nivers athy athy 1-13 ity of 00:00: [place] 00 Medical Branch NSVT NSVT Disease Active Univers (nonsustai (nonsustai 1-13 it y of keisha keisha 00:00: [place] ventricula ventricula 00 Me dical r r [...] artery 1-12 ity of disease disease 00:00: [place] involving involving 00 Medi kwame [place] Branch coronary coronary artery of artery of igiugig igiugig heart heart without without angina angina pectoris pectoris Snores Snores Disease Active Univers 1-12 ity of 00:00: [place] [facility] Cigarette Cigarette Disease Active Uni vers smoker smoker 1-12 ity of 00:00: [place] [facility] Primary Primary Disease Active Univers hypertensi hypertensi 1-12 it y of on on 00:00: [place] [facility] Other Other Disease Active Univers hyperlipid hyperlipid 1-12 it y of emia emia 00:00: [place] [facility] Coronary Coronary Disease Active Unive rs artery artery 1-12 ity of disease disease 00:00: [place] involving involving 00 Medi kwame ig[place]ugig ig[place]ug[place] Branch coronary coronary artery of artery of igiugig igiugig heart heart without without angina angina pectoris [...] anxiety 09-27 ity of disorder disorder 00:00: [place] [facility] Agoraphobi Agoraphobi Disease Active U nivers a a 3 ity of 00:00: [place] [facility] Bipolar Bipolar Disease Active Univers disorder, disorder, 09-27 [place] remission[place] remission, 00 Me dical most most Branch recent recent episode episode manic manic 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 09-27 it y of disorder disorder 00:00: [place] [facility] Breast Breast Disease Active Univers mass, left mass, left 3 it y of 00:00: [place] [facility] Anxiety Anxiety Disease Active Univers 3 ity of 00:00: [place] [facility] Lower back Lower back Disease Active U nivers pain pain 3 ity of 00:00: [place] [facility] High blood High blood Disease Active U nivers pressure pressure 3 ity of 00:00: [place] [facility] COPD COPD Disease Active Univers (chronic (chronic 3 ity of obstructiv obstructiv [place] 00 Medical pulmonary pulmonary Bran ch disease) disease) Obesity Obesity Disease Active Univers 3 ity of 00:00: [place] 00 Medical Branch Allergies, Adverse Reactions, Alerts Allergy Allergy Status Severity Reaction(s) Onset Inactive Treating Comm ents Source Name Type Date Date Clinician Fluoxeti Propensi Active 2022-[address] [facility] [address] ne ty to 9-10 [facility] adverse 00:00: Medical reaction 00 Center s Green Drug Active Other (See 2022-0 Seizure [facility] Tea Allergy Comments) 9-10 like [facility] 00:[facility]: activity Medical 00 Center Levetira Drug Active Nausea And 2022-[address] cetam Allergy Vomiting 9-10 es [facility] 00:00: seizure Medical 00 Center FLUOXETI Allergy Active 2022-[address] [facility] NE 9-10 [facility] 00:00: Medical 00 Center GREEN Allergy Active High Other 2022-[address] [facility] TEA 9-10 [facility] 00:00: Medical 00 Center LEVETIRA Allergy Active High N\\T\\V 2022-[address] [facility] [address] CETAM 9-10 [facility] 00:00: Medical 00 Center Green Propensi Active 2022-[address] [facility] [address] Tea ty to 9-10 like [facility] adverse 00:00: activity Medical reaction 00 Center s Levetira Propensi Active Nausea And 2022-[address] cetam ty to Vomiting 9-10 es [facility] adverse 00:00: seizure Medical reaction 00 Center s LEVETIRA DRUG Active Other-Cmnt 2022-0 Univ ers CETAM INGREDI 5 ity of 00:00: [place] 00 Medical Branch Levetira Propensi Active Other - See 0 Makes U nivers cetam ty to comments - seizures ity of adverse 00:00: worse [place] reaction 00 Medical s Branch Fluoxeti Propensi Active Rash 2022-[address] [facility] ne ty to 1-14 [facility] adverse 00:00: Medical reaction 00 Center s FLUOXETI Allergy Active Med Rash 2022-0 [facility] NE 1-14 00:00: 00 Green Propensi Active 2022-[address] [facility] Tea ty to 1-14 [facility] adverse 00:00: Medical reaction 00 Center s GREEN Allergy Active 2022-[address] [facility] TEA 1-14 [facility] 00:00: Medical 00 Center Fluoxeti Propensi Active Unknown - 2020-0 Uni vers ne ty to See comments 03-25 ity of adverse 00:00: [place] reaction 00 Medical s Branch FLUOXETI DRUG Active Unknown-Cmnt 2020-0 Un lois NE INGREDI 9-06 ity of 00:00: [place] 00 Medical Branch DICLOFEN DRUG Active HYPERTENSION 2015-0 Un lois AC INGREDI 11-20 ity of [...] HCL INGREDI 03-19 ity of 00:00: [place] [facility] Fluoxeti Propensi Active Hives Univer s ne Hcl ty to 03-19 ity of adverse 00:00: [place] reaction 00 Medical s Branch Family History Family Member Diagnosis Comments Start Date Stop Date Source Natural mother Alcohol abuse [facility] Natural mother Cancer [facility] Natural mother Diabetes [facility] Natural mother Heart disease [facility] Natural mother Hyperlipidemia [facility] Natural mother Kidney disease [facility] Natural mother Stroke [facility] Natural mother Alcohol abuse [facility] Natural mother Stroke [facility] Paternal uncle Diabetes [facility] Social History Social Habit Start Date Stop Date Quantity Comments Source History SDOH Social Unive rsity of [facility] Med ical Together Branch History SDOH Social Unive rsity of [facility] Medical Branch History SDOH Social Unive rsity of [facility] Medical Membership Branch History SDOH Social Unive rsity of [facility] Medical Meetings Branch History SDOH [facility] Alcohol Frequency Medical Center History SDOH [facility] Alcohol Std Drinks Medica l Center History SDOH [facility] Alcohol Binge Medical [address] History SDOH [facility] Housing [facility]eless [facility] Last Year Sexual orientation [facility] Alcohol intake 2023-06-02 2023-06-02 Current drinker [facility] 00:[facility] 00:00:00 of alcohol Medical Center (finding) History of Social 2023-06-02 2023-06-[address] [facility] function 00:00:00 00:00:00 Medical Center Exposure to 2023-05-18 2023-05-[address] [facility] SARS-CoV-2 (event) 00:00:00 07:28:00 Medica l Center History [facility] 2023-05-26 2023-05-[address] [facility] Housing Unable to 00:00:00 00:00:00 Medical Center Pay - In the last 12 months, was there a time when you were not able to pay the mortgage or rent on time? Cigarettes smoked 2023-05-26 2023-05-[address] [facility] current (pack per 00:00:00 00:00:00 Medical Center day) - Reported Cigarette 2023-05-26 2023-05-[address] [facility] pack-years 00:00:00 00:00:00 Medical Center Tobacco use and 2023-05-26 2023-05-[address] [facility] [facility] exposure 00:00:00 00:00:00 tobacco non-user Medical Center History of tobacco 1987-05-22 2023-05-[address] [facility] use 00:00:00 00:00:00 Medical Center History [facility] 2023-03-30 2023-03-[address] [facility] Housing Places 00:00:00 00:00:00 Medical Ce nter Lived Alcohol Comment 2023-03-29 2023-03-[address] [facility] 00:00:00 00:00:00 Medical Center History [facility] Social 2022-08-01 2022-08-01 5 Unive rsity of Connections Phone 00:00:00 00:00:00 [facility] edical Branch History [facility] Social 2022-08-01 2022-08-01 5 Unive rsity of Connections Living 00:00:00 00:00:00 [place] [facility] History [facility] 2022-08-01 2022-08-01 0 University o f Physical Activity 00:00:00 00:00:00 [facility] edical DPW Branch History [facility] 2022-08-01 2022-08-01 0 University o f Physical Activity 00:00:00 00:00:00 [facility] edical MPS Branch History [facility] 2022-08-01 2022-08-01 3 University o f Financial 00:00:00 00:00:00 [place] [facility] History SDOH Food 2022-08-01 2022-08-01 1 Univers ity of Worry 00:00:00 00:00:00 [place] [facility] History SDOH Food 2022-08-01 2022-08-01 1 Univers ity of Scarcity 00:00:00 00:00:00 [place] [facility] History SDOH 2022-08-01 2022-08-01 2 University o f Transport Med 00:00:00 00:00:00 [place] Medic al Branch History SDOH 2022-08-01 2022-08-01 2 [place] o f Transport Non-Med 00:00:00 00:00:00 [facility] edical Branch Education 2022-07-31 2022-07-31 14 [facility] 00:00:00 00:00:00 [facility] Sex Ass[birth year] At [birth year] [facility] kes 00:00:00 00:00:00 [facility] Center Smoking Status Start Date Stop Date Source Ex-smoker 2023-05-26 00:00:00 2023-05-26 00:00:00 [facility] Smokes tobacco daily 2023-03-29 00:00:00 [facility] Medications Ordered Filled Start Stop Current Ordering Indication Dosage Frequency Signature Comments Components Source Medication Medication Date Date Medication? Clinician (SIG) Name Name dexAMETHaso 2022-07- No 1mg Take 0.[address] ne 1-18 11-20 tablets (1 [facility] (DECADRON) 00:00: 23:59 mg total) M edical 2 MG tablet 00 :00 by mouth 2 Ce nter (two) times daily with breakfast and dinner for 2 days. dexAMETHaso 2022-07- Yes 1mg Take 0.[address] ne 1-18 11-20 tablets (1 [facility] (DECADRON) 00:00: 23:59 mg total) M edical 2 MG tablet 00 :00 by mouth 2 Ce nter (two) times daily with breakfast and dinner for 2 days. dexAMETHaso 2022-07- Yes 1mg Take 0.[address] ne 1-18 11-20 tablets (1 [facility] (DECADRON) 00:00: 23:59 mg total) M edical 2 MG tablet 00 :00 by mouth 2 Ce nter (two) times daily with breakfast and dinner for 2 days. dexAMETHaso 2022-07- No 2mg Take [address] [facility] ne 1-17 11-18 tablet (2 [facility] (DECADRON) 00:00: 23:59 mg total) M edical 2 MG tablet 00 :00 by mouth 2 Ce nter (two) times daily with breakfast and dinner for 1 day. dexAMETHaso 2022-07- Yes 2mg Take [address] [facility] ne 1-17 11-18 tablet (2 [facility] (DECADRON) 00:00: 23:59 mg total) M edical 2 MG tablet 00 :00 by mouth 2 Ce nter (two) times daily with breakfast and dinner for 1 day. dexAMETHaso 2022-07- Yes 2mg Take [address] [facility] ne 1-17 11-18 tablet (2 [facility] (DECADRON) 00:00: 23:59 mg total) M edical 2 MG tablet 00 :00 by mouth 2 Ce nter (two) times daily with breakfast and dinner for 1 day. metoprolol 2022-07 Yes 25mg QD Take 1 [facility] succinate 1-16 tablet (25 [facility] (TOPROL-XL) 17:44: mg total) M edical 25 MG 24 hr 21 by mouth Cent er tablet daily. varenicline 2022-07 Yes 1mg Q.5D Take [address] [facility] [address] (CHANTIX) 1 1-16 tablet (1 [facility] es mg tablet 17:44: mg total) Med ical 21 by mouth 2 Center (two) times daily Give with meals and with a full glass of water.. albuterol 2022-07 Yes 1{puff} Inhale [address] HFA 1-16 puff by [facility] (VENTOLIN 17:44: mouth via Med ical HFA) 90 21 inhaler Center mcg/actuati every 6 on inhaler (six) hours as needed for Wheezing. fluticasone 2022-07 Yes QD Inhale by C [facility] -umeclidin- 1-16 mouth via [facility] es vilanter 17:44: inhaler Medica l (Trelegy 21 daily. Center Ellipta) 200-62.5-25 mcg DsDv atorvastati 2022-07 Yes 20mg QD Take [address] n (LIPITOR) 1-16 tablet (20 [facility] kes 20 MG 17:44: mg total) Medical tablet 21 by mouth Center daily. acetaminoph 2022-07 Yes 1{tbl} Take [address] en-codeine 1-16 tablet by Luke s (TYLENOL 17:44: mouth Medical #3) 300-30 21 every 4 Center mg per (four) tablet hours as needed for Pain. metoprolol 2022-07 Yes 25mg QD Take 1 [facility] succinate 1-16 tablet (25 [facility] (TOPROL-XL) 17:44: mg total) M edical 25 MG 24 hr 21 by mouth Cent er tablet daily. varenicline 2022-07 Yes 1mg Q.5D Take [address] [facility] (CHANTIX) 1 1-16 tablet (1 [facility] es mg tablet 17:44: mg total) Med ical 21 by mouth 2 Center (two) times daily Give with meals and with a full glass of water.. albuterol 2022-07 Yes 1{puff} Inhale [address] HFA 1-16 puff by Shanelle (VENTOLIN 17:44: mouth via Med ical HFA) 90 21 inhaler Center mcg/actuati every 6 on inhaler (six) hours as needed for Wheezing. fluticasone 2022-07 Yes QD Inhale by C [facility] -umeclidin- 1-16 mouth via [place] es vilanter 17:44: inhaler Medica l (Trelegy 21 daily. Center Ellipta) 200-62.5-25 mcg DsDv atorvastati 2022-07 Yes 20mg QD Take [address] [facility] [facility] n (LIPITOR) 1-16 tablet (20 Re[facility] kes 20 MG 17:44: mg total) Medical tablet 21 by mouth Center daily. acetaminoph 2022-07 Yes 1{tbl} Take [address] en-codeine 1-16 tablet by Luke s (TYLENOL 17:44: mouth Medical #3) 300-30 21 every 4 Center mg per (four) tablet hours as needed for Pain. metoprolol 2022-07 Yes 25mg QD Take 1 [facility] succinate 1-16 tablet (25 [facility] (TOPROL-XL) 17:44: mg total) M edical 25 MG 24 hr 21 by mouth Cent er tablet daily. varenicline 2022-07 Yes 1mg Q.5D Take [address] [facility] (CHANTIX) 1 1-16 tablet (1 [facility] es mg tablet 17:44: mg total) Med ical 21 by mouth 2 Center (two) times daily Give with meals and with a full glass of water.. albuterol 2022-07 Yes 1{puff} Inhale [address] HFA 1-16 puff by Shanelle (VENTOLIN 17:44: mouth via Med ical HFA) 90 21 inhaler Center mcg/actuati every 6 on inhaler (six) hours as needed for Wheezing. fluticasone 2022-07 Yes QD Inhale by C [facility] -umeclidin- 1-16 mouth via [facility] es vilanter 17:44: inhaler Medica l (Trelegy 21 daily. Center Ellipta) 200-62.5-25 mcg DsDv atorvastati 2022-07 Yes 20mg QD Take [address] [facility] n (LIPITOR) 1-16 tablet (20 Re[facility] kes 20 MG 17:44: mg total) Medical tablet 21 by mouth Center daily. acetaminoph 2022-07 Yes 1{tbl} Take [address] en-codeine 1-16 tablet by Andrew pacheco (TYLENOL 17:44: mouth Medical #3) 300-30 21 every 4 Center mg per (four) tablet hours as needed for Pain. senna 2022-07- Yes 17.2mg Q.5D Take [address] [facility] [address] (SENOKOT) 1-16 11-30 tablets [facility] 8.6 mg 00:00: 23:59 (17.2 mg Medica l tablet 00 :00 total) by Center mouth 2 (two) times daily for 14 days. senna 2022-07- Yes 17.2mg Q.5D Take [address] (SENOKOT) 1-16 11-30 tablets [facility] 8.6 mg 00:00: 23:59 (17.2 mg Medica l tablet 00 :00 total) by Center mouth 2 (two) times daily for 14 days. senna 2022-07- Yes 17.2mg Q.5D Take [address] (SENOKOT) 1-16 11-30 tablets [facility] 8.6 mg 00:00: 23:59 (17.2 mg Medica l tablet 00 :00 total) by Center mouth 2 (two) times daily for 14 days. cyclobenzap 2022-07- Yes 10mg Q.[id number] Take [address] rine -16 06-14 [id number] tablet (10 Reina kes (FLEXERIL) 00:00: 23:59 3D mg total) M edical 10 MG 00 :00 by mouth 3 Center tablet (three) times daily for 10 days. methocarbam 2022-07- Yes 500mg Q.25D Take [address] oL 08-04 tablet [facility] (ROBAXIN) 00:00: 23:59 (500 mg Medi kwame 500 MG 00 :00 total) by Center tablet mouth 4 (four) times daily for 10 days. cyclobenzap 2022-07- Yes 10mg Q.[id number] Take [address] [facility] [address] rine 08-04 [id number] tablet (10 Re[facility] kes (FLEXERIL) 00:00: 23:59 3D mg total) M edical 10 MG 00 :00 by mouth 3 Center tablet (three) times daily for 10 days. methocarbam 2022-07- Yes 500mg Q.25D Take [address] oL 08-04 tablet [facility] (ROBAXIN) 00:00: 23:59 (500 mg Medi kwame 500 MG 00 :00 total) by Center tablet mouth 4 (four) times daily for 10 days. cyclobenzap 2022-07- Yes 10mg Q.[id number] Take [address] [facility] [address] rine 08-04 [id number] tablet (10 Reina kes (FLEXERIL) 00:00: 23:59 3D mg total) M edical 10 MG 00 :00 by mouth 3 Center tablet (three) times daily for 10 days. methocarbam 2022-07- Yes 500mg Q.25D Take [address] oL -16 - tablet [facility] (ROBAXIN) 00:00: 23:59 (500 mg Medi kwame 500 MG 00 :00 total) by Center tablet mouth 4 (four) times daily for 10 days. lactulose 2022-07- No 20g Q.[id number] Take [address] [facility] (CHRONULAC) -16 - [id number] mLs (20 g [facility] 20 gram/30 00:00: 23:59 3D total) by M edical mL solution 00 :00 mouth 3 Cente r (three) times daily for 7 days. ondansetron 2022-07- No 4mg Take [address] [facility] (ZOFRAN-ODT -16 -23 tablet (4 Reina kes ) 4 MG 00:00: 23:59 mg total) Medic al disintegrat 00 :00 by mouth Cent er ing tablet every 6 (six) hours as needed for up to 7 days. lactulose 2022-07- Yes 20g Q.[id number] Take [address] [address] (CHRONULAC) -16 - [id number] mLs (20 g [facility] 20 gram/30 00:00: 23:59 3D total) by M edical mL solution 00 :00 mouth 3 Cente r (three) times daily for 7 days. ondansetron 2022-07- Yes 4mg Take [address] [facility] [address] (ZOFRAN-ODT -06-11 tablet (4 Reina kes ) 4 MG 00:00: 23:59 mg total) Medic al disintegrat 00 :00 by mouth Cent er ing tablet every 6 (six) hours as needed for up to 7 days. lactulose 2022-07- Yes 20g Q.[id number] Take [address] (CHRONULAC) -16 - [id number] mLs (20 g [facility] 20 gram/30 00:00: 23:59 3D total) by M edical mL solution 00 :00 mouth 3 Cente r (three) times daily for 7 days. ondansetron 2022-07- Yes 4mg Take [address] [facility] [address] (ZOFRAN-ODT -16 -23 tablet (4 Reina kes ) 4 MG 00:00: 23:59 mg total) Medic al disintegrat 00 :00 by mouth Cent er ing tablet every 6 (six) hours as needed for up to 7 days. metoprolol 2022-07 Yes 25mg QD Take 1 [facility] succinate -09 tablet (25 [facility] (TOPROL-XL) 15:23: mg total) M edical 25 MG 24 hr 22 by mouth Cent er tablet daily. varenicline 2022-07 Yes 1mg Q.5D Take [address] [facility] [address] (CHANTIX) 1 1-09 tablet (1 [facility] es mg tablet 15:23: mg total) Med ical 22 by mouth 2 Center (two) times daily Give with meals and with a full glass of water.. albuterol 2022-07 Yes 1{puff} Inhale [address] HFA 1-09 puff by Shanelle (VENTOLIN 15:23: mouth via Med ical HFA) 90 22 inhaler Center mcg/actuati every 6 on inhaler (six) hours as needed for Wheezing. fluticasone 2022-07 Yes QD Inhale by [facility] -umeclidin- 1-09 mouth via [facility]ierrez es vilanter 15:23: inhaler Medica l (Trelegy 22 daily. Center Ellipta) 200-62.5-25 mcg DsDv atorvastati 2022-07 Yes 20mg QD Take [address] [facility] [address] n (LIPITOR) 1-09 tablet (20 [facility] kes 20 MG 15:23: mg total) Medical tablet 22 by mouth Center daily. acetaminoph 2022-07 Yes 1{tbl} Take [address] en-codeine 1-09 tablet by Andrew pacheco (TYLENOL 15:23: mouth Medical #3) 300-30 22 every 4 Center mg per (four) tablet hours as needed for Pain. acetaminoph 2022-07 Yes 1{tbl} Take [address] en-codeine 1-07 tablet by Andrew pacheco (TYLENOL 09:42: mouth Medical #3) 300-30 02 every 4 Center mg per (four) tablet hours as needed for Pain. Max Daily Amount: 6 tablets acetaminoph 2022-07 Yes 1{tbl} Take [address] en-codeine 1-07 tablet by Andrew pacheco (TYLENOL 09:42: mouth Medical #3) 300-30 02 every 4 Center mg per (four) tablet hours as needed for Pain. Max Daily Amount: 6 tablets varenicline 2022-07 Yes 1mg Q.5D Take [address] [facility] [address] (CHANTIX) 1 1-07 tablet (1 [facility] es mg tablet 09:40: mg total) Med ical 04 by mouth 2 Center (two) times daily Give with meals and with a full glass of water.. albuterol 2022-07 Yes 1{puff} Inhale [address] HFA 1-07 puff by [facility] (VENTOLIN 09:40: mouth via Med ical HFA) 90 04 inhaler Center mcg/actuati every 6 on inhaler (six) hours as needed for Wheezing. fluticasone 2022-07 Yes QD Inhale by [facility] -umeclidin- 1-07 mouth via [facility]ierrez es vilanter 09:40: inhaler Medica l (Trelegy 04 daily. Center Ellipta) 200-62.5-25 mcg DsDv atorvastati 2022-07 Yes 20mg QD Take [address] [facility] [address] n (LIPITOR) 1-07 tablet (20 Reina kes 20 MG 09:40: mg total) Medical tablet 04 by mouth Center daily. varenicline 2022-07 Yes 1mg Q.5D Take [address] [facility] (CHANTIX) 1 1-07 tablet (1 [facility]rez es mg tablet 09:40: mg total) Med ical 04 by mouth 2 Center (two) times daily Give with meals and with a full glass of water.. albuterol 2022-07 Yes 1{puff} Inhale [address] HFA 1-07 puff by [facility] (VENTOLIN 09:40: mouth via Med ical HFA) 90 04 inhaler Center mcg/actuati every 6 on inhaler (six) hours as needed for Wheezing. fluticasone 2022-07 Yes QD Inhale by [facility] -umeclidin- 1-07 mouth via Gutierrez es vilanter 09:40: inhaler Medica l (Trelegy 04 daily. Center Ellipta) 200-62.5-25 mcg DsDv atorvastati 2022-07 Yes 20mg QD Take [address] n (LIPITOR) 1-07 tablet (20 Reina kes 20 MG 09:40: mg total) Medical tablet 04 by mouth Center daily. metoprolol 2022-07 Yes 25mg QD Take 1 [facility] succinate 1-07 tablet (25 [facility] (TOPROL-XL) 09:13: mg total) M edical 25 MG 24 hr 28 by mouth Cent er tablet daily. metoprolol 2022-07 Yes 25mg QD Take 1 [facility] succinate 1-07 tablet (25 [facility] (TOPROL-XL) 09:13: mg total) M edical 25 MG 24 hr 28 by mouth Cent er tablet daily. furosemide 2023- Yes 20mg QD Take [address] [facility] (LASIX) 20 04-03 tablet (20 Reina kes MG tablet 00:00: 23:59 mg total) Me dical 00 :00 by mouth Center daily. DULoxetine 2023- Yes 30mg QD Take [address] [facility] (CYMBALTA) 04-03 capsule [facility] 30 MG 00:00: 23:59 (30 mg Medical capsule 00 :00 total) by Center mouth daily. furosemide 2023- Yes 20mg QD Take [...] QD Take [address] [facility] (LASIX) 20 04-03-14 tablet (20 Reina kes MG tablet 00:00: 23:59 mg total) Me dical 00 :00 by mouth Center daily. DULoxetine 2023- Yes 30mg QD Take [address] [facility] [address] (CYMBALTA) 04-03-14 capsule [facility] 30 MG 00:00: 23:59 (30 [...] QD Take [address] [facility] [address] (LASIX) 20 04-03-14 tablet (20 Reina kes MG tablet 00:00: 23:59 mg total) Me dical 00 :00 by mouth Center daily. DULoxetine 2023- Yes 30mg QD Take [address] [facility] [address] (CYMBALTA) 15 -14 capsule [facility] 30 MG 00:00: 23:59 (30 mg Medical capsule 00 :00 total) by Center mouth daily. lisinopriL 2023- Yes 5mg QD Take [address] [facility] (PRINIVIL,Z 9-15 09-14 tablet (5 Reina kes ESTRIL) 5 00:00: [...] 5mg QD Take [address] [facility] (PRINIVIL,Z -03 04-14 tablet (5 Reina kes ESTRIL) 5 00:00: 23:59 mg total) Me dical MG tablet 00 :00 by mouth Center daily. furosemide 2023- Yes 20mg QD Take [address] [facility] (LASIX) 20 -03 04-14 tablet (20 Reina kes MG tablet 00:00: [...] :00 total) by Center mouth daily. furosemide 2023- Yes 20mg QD Take [address] [facility] (LASIX) 20 04-03-14 tablet (20 Reina kes MG tablet 00:00: 23:59 mg total) Me dical 00 :00 by mouth Center daily. DULoxetine 2023- Yes 30mg QD Take [address] [facility] (CYMBALTA) 9-14 capsule [facility] 30 MG 00:00: 23:59 (30 mg Medical capsule 00 :00 total) by Center mouth daily. furosemide 2023- Yes 20mg QD Take [address] [facility] (LASIX) 20 04-03-14 tablet (20 [facility] MG tablet 00:00: 23:59 mg total) Me dical 00 :00 by mouth Center daily. DULoxetine 0 2023- Yes 30mg QD Take [address] [facility] (CYMBALTA) 04-03 capsule [facility] 30 MG 00:00: 23:59 (30 mg Medical capsule 00 :00 total) by Center mouth daily. aspirin 81 2022- Yes 81mg QD [...] for 90 days. gabapentin 2022- Yes 300mg Q.[id number] Take [address] [facility] (NEURONTIN) 04-03 [id number] capsule [facility] 300 MG 00:00: 23:59 3D [...] for 90 days. gabapentin 2022-2022- Yes 300mg Q.[id number] Take [address] [facility] (NEURONTIN) 04-03 [id number] [facility] 300 MG 00:00: 23:59 3D [...] Q.5D Take [address] [facility] (DEPAKOTE) 04-03 12-14 tablet [facility] 500 MG EC 00:00: 23:59 (500 mg Medi kwame tablet 00 :00 total) by Center mouth 2 (two) times daily for 90 days. gabapentin 2022-2022- Yes 300mg Q.[id number] Take [address] [facility] (NEURONTIN) 04-03-14 [id number] capsule [facility] 300 MG 00:00: 23:59 3D (300 mg Medical capsule 00 :00 total) by Center mouth 3 (three) times daily for 90 days. aspirin 81 2022- Yes 81mg QD Take [address] [facility] MG EC 04-03-14 tablet (81 [facility] tablet 00:00: 23:59 mg total) Medic al 00 :00 by mouth Center daily for 90 days. divalproex 2022- Yes 500mg Q.5D Take [address] [facility] (DEPAKOTE) 04-03-14 tablet [facility] 500 MG EC 00:00: 23:59 (500 mg Medi kwame tablet 00 :00 total) by Center mouth 2 (two) times daily for 90 days. gabapentin 2022-2022- Yes 300mg Q.[id number] Take [address] [facility] (NEURONTIN) 04-03 [id number] [facility] 300 MG 00:00: 23:59 3D (300 mg Medical capsule 00 :00 total) by Center mouth 3 (three) times daily for 90 days. aspirin 81 2022- Yes 81mg QD Take [address] [facility] MG EC - 12-14 tablet (81 [facility] tablet 00:00: 23:59 mg total) Medic al 00 :00 by mouth Center daily for 90 days. divalproex 2022-2022- Yes 500mg Q.5D Take [address] [facility] (DEPAKOTE) 04-03 12-14 tablet [facility] 500 MG EC 00:00: 23:59 (500 mg Medi kwame tablet 00 :00 total) by Center mouth 2 (two) times daily for 90 days. gabapentin 2022-2022- Yes 300mg Q.[id number] Take [address] [facility] (NEURONTIN) 9-15 12-14 [id number] [facility] 300 MG 00:00: 23:59 3D [...] for 90 days. gabapentin 2022-2022- Yes 300mg Q.[id number] Take [address] [facility] (NEURONTIN) 9-15 12-14 [id number] [facility] 300 MG 00:00: 23:59 3D [...] for 90 days. gabapentin 2022- Yes 300mg Q.[id number] Take [address] [facility] (NEURONTIN) 9-15 12-14 [id number] [facility] 300 MG 00:00: 23:59 3D (300 mg Medical capsule 00 :00 total) by Center mouth 3 (three) times daily for 90 days. aspirin 81 2022- Yes 81mg QD Take [address] [facility] MG EC 9-15 12-14 tablet (81 [facility] tablet 00:00: 23:59 mg total) Medic al 00 :00 by mouth Center daily for 90 days. divalproex 2022-0 2022- Yes 500mg Q.5D Take [address] [facility] (DEPAKOTE) 9- 12-14 tablet [facility] 500 MG EC 00:00: 23:59 (500 mg Medi kwame tablet 00 :00 total) by Center mouth 2 (two) times daily for 90 days. gabapentin 2022-0 2022- Yes 300mg Q.[id number] Take [address] [facility] (NEURONTIN) 04-03-14 [id number] [facility] 300 MG 00:00: 23:59 3D (300 mg Medical capsule 00 :00 total) by Center mouth 3 (three) times daily for 90 days. aspirin 81 2022-2022- Yes 81mg QD Take [address] [facility] MG EC 04-03-14 tablet (81 [facility] tablet 00:00: 23:59 mg total) Medic al 00 :00 by mouth Center daily for 90 days. divalproex 2022-2022- Yes 500mg Q.5D Take [address] [facility] (DEPAKOTE) 04-03-14 tablet [facility] 500 MG EC 00:00: 23:59 (500 mg Medi kwame tablet 00 :00 total) by Center mouth 2 (two) times daily for 90 days. gabapentin 2022-0 2022- Yes 300mg Q.[id number] Take [address] [facility] (NEURONTIN) 04-03- [id number] capsule [facility] 300 MG 00:00: 23:59 3D (300 mg Medical capsule 00 :00 total) by Center mouth 3 (three) times daily for 90 days. aspirin 81 2022-0 2022- Yes 81mg QD Take [address] [facility] MG EC 04-03-14 tablet (81 [facility] tablet 00:00: 23:59 mg total) Medic al 00 :00 by mouth Center daily for 90 days. divalproex 2022-0 2022- Yes 500mg Q.5D Take [address] [facility] (DEPAKOTE) 9 12-14 tablet [facility] 500 MG EC 00:00: 23:59 (500 mg Medi kwame tablet 00 :00 total) by Center mouth 2 (two) times daily for 90 days. gabapentin 2022-0 2022- Yes 300mg Q.[id number] Take [address] [facility] (NEURONTIN) -15 -14 [id number] capsule [facility] 300 MG 00:00: 23:59 3D [...] for 90 days. gabapentin 2022-2022- Yes 300mg Q.[id number] Take [address] [facility] (NEURONTIN) 04-03-14 [id number] [facility] 300 MG 00:00: 23:59 3D [...] 500mg Q.5D Take [address] [facility] (DEPAKOTE) 915 12-14 tablet [facility] 500 MG EC 00:00: 23:59 (500 mg Medi kwame tablet 00 :00 total) by Center mouth 2 (two) times daily for 90 days. gabapentin 2022-2022- Yes 300mg Q.[id number] Take [address] [facility] (NEURONTIN) 04-03-14 [id number] capsule [facility] 300 MG 00:00: 23:59 3D [...] (two) times daily for 90 days. gabapentin 2022-0 2022- Yes 300mg Q.[id number] Take [address] [facility] (NEURONTIN) 04-03-14 [id number] capsule [facility] 300 MG 00:00: 23:59 3D (300 mg Medical capsule 00 :00 total) by Center mouth 3 (three) times daily for 90 days. lisinopriL 2022-0 2023- No 5mg QD Take [address] [facility] (PRINIVIL,Z - 11- tablet (5 [facility] ESTRIL) 5 00:00: 00:00 mg total) Me dical MG tablet 00 :00 by mouth Center daily. lisinopriL 2022-0 202- No 5mg QD Take [address] [facility] (PRINIVIL,Z - 11- tablet (5 [facility] ESTRIL) 5 00:00: 00:00 mg total) Me dical MG tablet 00 :00 by mouth Center daily. lisinopriL 2022-0 202- No 5mg QD Take [address] [facility] (PRINIVIL,Z - 11- tablet (5 [facility] ESTRIL) 5 00:00: 00:00 mg total) Me dical MG tablet 00 :00 by mouth Center daily. lisinopriL 2022-0 2023- No 5mg QD Take [address] [facility] (PRINIVIL,Z - 11-09 tablet (5 [facility] ESTRIL) 5 00:00: 00:00 mg total) Me dical MG tablet 00 :00 by mouth Center daily. clonazePAM 2022-0 202- No .25mg Take 0.[address] (KlonoPIN) 9-15 10-15 tablets [facility] 0.5 MG 00:00: 23:59 (0.25 mg Medica l tablet 00 :00 total) by Center mouth 2 (two) times daily as needed for Anxiety for up to 30 days. Max Daily Amount: 0.5 mg clonazePAM 3-0 2023- No .25mg Take 0.5 C [facility] [...] Daily Amount: 0.5 mg clonazePAM 2023-0 2023- Yes .25mg Take 0.[address] (KlonoPIN) 9-15 10-15 tablets [facility] 0.5 MG 00:00: 23:59 (0.25 mg Medica l tablet 00 :00 total) by Center mouth 2 (two) times daily as needed for Anxiety for up to 30 days. Max Daily Amount: 0.5 mg clonazePAM 2023-0 2023- Yes .25mg Take 0.[address] [...] Max Daily Amount: 0.5 mg clonazePAM 2023-0 3- No .25mg Take 0.[address] [...] Max Daily Amount: 0.5 mg HYDROcodone 3-0 2023- No 1{tbl} Take 1 [...] (four) times daily for 10 days. HYDROcodone 2022-0 2023- No 1{tbl} Take [address] -acetaminop 9-15 09-25 tablet by [facility] (NORCO 00:00: 23:59 mouth Medic al 10-325) 00 :00 every 6 Center 10-325 mg (six) per tablet hours as needed for up to 10 days. Max Daily Amount: 4 tablets methocarbam 3-0 2023- No 500mg Q.25D Take [address] oL 9-15 09-25 tablet [facility] (ROBAXIN) 00:00: 23:59 (500 mg Medi kwame 500 MG 00 :00 total) by Center tablet mouth 4 (four) times daily for 10 days. HYDROcodone 2022-0 3- No 1{tbl} Take 1 [facility] [...] (four) times daily for 10 days. HYDROcodone 202-0 2023- No 1{tbl} Take [address] -acetaminop -03 04-25 tablet by [facility] (NORCO 00:00: 23:59 mouth Medic al 10-325) 00 :00 every 6 Center 10-325 mg (six) per tablet hours as needed for up to 10 days. Max Daily Amount: 4 tablets methocarbam 3-0 2023- No 500mg Q.25D Take [address] oL -03 04-25 tablet [facility] (ROBAXIN) 00:00: 23:59 (500 mg Medi kwame 500 MG 00 :00 total) by Center tablet mouth 4 (four) times daily for 10 days. HYDROcodone 2023-0 2023- No 1{tbl} Take [address] -acetaminop -03 04-25 tablet by [facility] (NORCO 00:00: 23:59 mouth Medic al 10-325) 00 :00 every 6 Center 10-325 mg (six) per tablet hours as needed for up to 10 days. Max Daily Amount: 4 tablets methocarbam 2023-0 2023- No 500mg Q.25D Take [address] oL -15 -25 tablet [facility] (ROBAXIN) 00:00: 23:59 (500 mg Medi kwame 500 MG 00 :00 total) by Center tablet mouth 4 (four) times daily for 10 days. lisinopriL 2023-0 2023- No 5mg QD Take [address] [facility] (PRINIVIL,Z -03 04-15 tablet (5 [facility] ESTRIL) 5 00:00: 00:00 mg total) Me dical MG tablet 00 :00 by mouth Center daily. aspirin 81 2022-0 2023- No 81mg QD Take [address] [facility] MG EC -03 04-15 tablet (81 [facility] tablet 00:00: 00:00 mg total) Medic al 00 :00 by mouth Center daily for 90 days. DULoxetine 2022-0 2023- No 30mg QD Take [address] [facility] (CYMBALTA) 04-03-15 capsule [facility] 30 MG 00:00: 00:00 (30 mg Medical capsule 00 :00 total) by Center mouth daily. furosemide 2022-0 2023- No 20mg QD Take [address] [facility] (LASIX) 20 04-03-15 tablet (20 [facility] MG tablet 00:00: 00:00 mg total) Me dical 00 :00 by mouth Center daily. lisinopriL 2022-0 2023- No 5mg QD Take [address] [facility] (PRINIVIL,Z 04-0315 tablet (5 [facility] ESTRIL) 5 00:00: 00:00 mg total) Me dical MG tablet 00 :00 by mouth Center daily. aspirin 81 2022-0 2023- No 81mg QD Take [address] [facility] MG EC 04-0315 tablet (81 [facility] tablet 00:00: 00:00 mg total) Medic al 00 :00 by mouth Center daily for 90 days. DULoxetine 2022-0 3- No 30mg QD Take [address] [facility] (CYMBALTA) 04-03-15 capsule [facility] 30 MG 00:00: 00:00 (30 mg Medical capsule 00 :00 total) by Center mouth daily. furosemide 2022-0 2023- No 20mg QD Take [address] [facility] (LASIX) 20 -03 04-15 tablet (20 [facility] MG tablet 00:00: 00:00 mg total) Me dical 00 :00 by mouth Center daily. lisinopriL 2023-0 2023- No 5mg QD Take [address] [facility] (PRINIVIL,Z -03 04-15 tablet (5 [facility] ESTRIL) 5 00:00: 00:00 mg total) Me dical MG tablet 00 :00 by mouth Center daily. aspirin 81 2022-0 2023- No 81mg QD Take [address] [facility] MG EC 04-03-15 tablet (81 [facility] tablet 00:00: 00:00 mg total) Medic al 00 :00 by mouth Center daily for 90 days. DULoxetine 2022-0 3- No 30mg QD Take [address] [facility] (CYMBALTA) 9-15 capsule [facility] 30 MG 00:00: 00:00 (30 mg Medical capsule 00 :00 total) by Center mouth daily. furosemide 2022-0 3- No 20mg QD Take [address] [facility] (LASIX) 20 04-0315 tablet (20 [facility] MG tablet 00:00: 00:00 mg total) Me dical 00 :00 by mouth Center daily. lisinopriL 2022-0 3- No 5mg QD Take [address] [facility] (PRINIVIL,Z 04-0315 tablet (5 [facility] ESTRIL) 5 00:00: 00:00 mg total) Me dical MG tablet 00 :00 by mouth Center daily. aspirin 81 3- No 81mg QD Take [address] [facility] MG EC 04-0315 tablet (81 [facility] tablet 00:00: 00:00 mg total) Medic al 00 :00 by mouth Center daily for 90 days. DULoxetine 2022-0 2022- No 30mg QD Take [address] [facility] (CYMBALTA) 04-0315 capsule [facility] 30 MG 00:00: 00:00 (30 mg Medical capsule 00 :00 total) by Center mouth daily. furosemide 2022-0 3- No 20mg QD Take [address] [facility] (LASIX) 20 04-03-15 tablet (20 [facility] MG tablet 00:00: 00:00 mg total) Me dical 00 :00 by mouth Center daily. lisinopriL 2022-0 3- No 5mg QD Take [address] [facility] (PRINIVIL,Z 04-03-15 tablet (5 [facility] ESTRIL) 5 00:00: 00:00 mg total) Me dical MG tablet 00 :00 by mouth Center daily. aspirin 81 2022-0 2023- No 81mg QD Take [address] [facility] MG EC -03 04-15 tablet (81 [facility] tablet 00:00: 00:00 mg total) Medic al 00 :00 by mouth Center daily for 90 days. DULoxetine 2022-0 3- No 30mg QD Take [address] [facility] (CYMBALTA) 9-15 09-15 capsule [facility] 30 MG 00:00: 00:00 (30 mg Medical capsule 00 :00 total) by Center mouth daily. furosemide 2022-0 3- No 20mg QD Take [address] [facility] (LASIX) 20 9-15 -15 tablet (20 [facility] MG tablet [...] QD Take [address] [facility] MG EC -03 04-15 tablet (81 [facility] tablet 00:00: 00:00 mg total) Medic al 00 :00 by mouth Center daily for 90 days. DULoxetine 2022-0 3- No 30mg QD Take [address] [facility] (CYMBALTA) 9-15 -15 capsule [facility] 30 MG 00:00: 00:00 (30 mg Medical capsule 00 :00 total) by Center mouth daily. furosemide 2022-0 3- No 20mg QD Take [address] [facility] (LASIX) 20 9-15 -15 tablet (20 [facility] k[facility] MG tablet [...] 00 :00 by mouth Center daily. lisinopriL 2023-0 2023- No 5mg QD Take 1 [facility] [...] Take [address] [facility] (LASIX) 20 9-15 -15 tablet (20 [facility] k[facility] MG tablet [...] Take [address] [facility] (LASIX) 20 9-15 -15 tablet (20 [facility] k[facility] MG tablet [...] 30mg QD Take [address] [facility] (CYMBALTA) -03 04-15 capsule [facility] 30 MG 00:00: 00:00 (30 mg Medical capsule 00 :00 total) by Center mouth daily. furosemide 2022-0 3- No 20mg QD Take [address] [facility] (LASIX) 20 04-03-15 tablet (20 [facility] MG tablet 00:00: 00:00 mg total) Me dical 00 :00 by mouth Center daily. lisinopriL 2022-0 2022- No 5mg QD Take [address] [facility] (PRINIVIL,Z 04-0315 tablet (5 [facility] ESTRIL) 5 00:00: [...] 5mg QD Take [address] [facility] (PRINIVIL,Z -03 04-15 tablet (5 [facility] ESTRIL) 5 00:00: 00:00 mg total) Me dical MG tablet 00 :00 by mouth Center daily. aspirin 81 2022-0 3- No 81mg QD Take [address] [facility] MG EC 04-03-15 tablet (81 [facility] tablet 00:00: 00:00 mg total) Medic al 00 :00 by mouth Center daily for 90 days. DULoxetine 2022-0 2023- No 30mg QD Take [address] [facility] (CYMBALTA) 04-03-15 capsule [facility] 30 MG 00:00: 00:00 (30 mg Medical capsule 00 :00 total) by Center mouth daily. furosemide 2022-0 3- No 20mg QD Take [address] [facility] (LASIX) 20 04-0315 tablet (20 [facility] MG tablet 00:00: 00:00 mg total) Me dical 00 :00 by mouth Center daily. aspirin 81 2022-0 2022- No 81mg QD Take [address] [facility] MG EC 04-0315 tablet (81 [facility] tablet 00:00: 00:00 mg total) Medic al 00 :00 by mouth Center daily for 90 days. DULoxetine 2022-0 3- No 30mg QD Take [address] [facility] (CYMBALTA) 04-03-15 capsule [facility] 30 MG 00:00: 00:00 (30 mg Medical capsule 00 :00 total) by Center mouth daily. furosemide 2022-0 3- No 20mg QD Take [address] [facility] (LASIX) 20 04-03-15 tablet (20 [facility] MG tablet 00:00: 00:00 mg total) Me dical 00 :00 by mouth Center daily. lisinopriL 2022-0 3- No 5mg QD Take [address] [facility] (PRINIVIL,Z 15 -15 tablet (5 [facility] ESTRIL) 5 00:00: 00:00 mg total) Me dical MG tablet 00 :00 by mouth Center daily. gabapentin 2022-0 3- No 300mg Q.[id number] Take [address] [facility] (NEURONTIN) 04-02-15 [id number] capsule [facility] 300 MG 00:00: 00:00 3D [...] Amount: 0.5 mg gabapentin 2022- No 300mg Q.[id number] Take [address] [facility] (NEURONTIN) 04-02 [id number] capsule [facility] 300 MG 00:00: 00:00 3D [...] Amount: 0.5 mg gabapentin 2022- No 300mg Q.[id number] Take [address] [facility] (NEURONTIN) 04-02 [id number] capsule [facility] 300 MG 00:00: 00:00 3D [...] (two) times daily for 90 days. clonazePAM 2023-0 202- No .25mg Take 0.[address] (KlonoPIN) 04-02 tablets [facility] 0.5 MG 00:00: 00:00 (0.25 mg Medica l tablet 00 :00 total) by Center mouth 2 (two) times daily as needed for Anxiety for up to 30 days. Max Daily Amount: 0.5 mg gabapentin 2022-0 2022- No 300mg Q.[id number] Take [address] [facility] (NEURONTIN) 04-02 [id number] capsule [facility] 300 MG 00:00: 00:00 3D [...] days. Max Daily Amount: 0.5 mg gabapentin 2022-0 2022- No 300mg Q.[id number] Take [address] [facility] (NEURONTIN) 04-02 [id number] capsule [facility] 300 MG 00:00: 00:00 3D [...] Amount: 0.5 mg gabapentin 2022- No 300mg Q.[id number] Take [address] [facility] (NEURONTIN) 04-02 [id number] capsule [facility] 300 MG 00:00: 00:00 3D [...] Amount: 0.5 mg gabapentin 2022-2022- No 300mg Q.[id number] Take [address] [facility] (NEURONTIN) 04-02 [id number] capsule [facility] 300 MG 00:00: 00:00 3D [...] (two) times daily for 90 days. clonazePAM 3-0 2022- No .25mg Take 0.[address] (KlonoPIN) 04-02 tablets [facility] 0.5 MG 00:00: 00:00 (0.25 mg Medica l tablet 00 :00 total) by Center mouth 2 (two) times daily as needed for Anxiety for up to 30 days. Max Daily Amount: 0.5 mg gabapentin 2022-0 2022- No 300mg Q.[id number] Take [address] [facility] (NEURONTIN) 04-02 [id number] capsule [facility] 300 MG 00:00: 00:00 3D [...] days. Max Daily Amount: 0.5 mg gabapentin 2022-0 2022- No 300mg Q.[id number] Take [address] [facility] (NEURONTIN) 04-02 [id number] [facility] 300 MG 00:00: 00:00 3D [...] Amount: 0.5 mg gabapentin 2022- No 300mg Q.[id number] Take [address] [facility] (NEURONTIN) 04-02 [id number] capsule [facility] 300 MG 00:00: 00:00 3D [...] Amount: 0.5 mg gabapentin 2022- No 300mg Q.[id number] Take [address] [facility] (NEURONTIN) 04-02 [id number] capsule [facility] 300 MG 00:00: 00:00 3D [...] Amount: 0.5 mg gabapentin 2022-2022- No 300mg Q.[id number] Take [address] [facility] (NEURONTIN) 04-02 [id number] capsule [facility] 300 MG 00:00: 00:00 3D [...] 30 days. Max Daily Amount: 0.5 mg divalproex 2022-2022- No 500mg Q.5D Take 1 [...] Amount: 0.5 mg gabapentin 2022- No 300mg Q.[id number] Take [address] [facility] (NEURONTIN) 04-02 [id number] capsule [facility] 300 MG 00:00: 00:00 3D (300 mg Medical capsule 00 :00 total) by Center mouth 3 (three) times daily for 90 days. HYDROcodone 2022- No 1{tbl} Take [address] -acetaminop 04-02 tablet by [facility] (NORCO 00:00: 00:00 mouth Medic al [...] 4 (four) times daily for 10 days. lacosamide 2022-2022- No 200mg 200 mg, IV [facility] (VIMPAT) 12-11 05-25 Piggyback, ity of 200 mg in 19:45: 19:57 [place]CE, [place] NaCl 0.9% 00 :00 dose, On Medica l (NS) 50 mL [place] Branch piggyback 12/11/22 at 1445, Administer over 30 Minutes, 50 mL
F aculty member approving Restricted medication : Alfonso ALVARADO ketorolac No 15mg 15 mg, Unive rs (TORADOL) 12-11-25 Slow IV ity of injection 18:15: 17:25 Push, [place] 15 mg 00 :00 ONCE, 1 Medical dose, On Branch [facility] 12/11/22 at 1315, MICHAEL iopamidol 2022- No [id number] 80mL 80 mL, U nivers (ISOVUE 12-11-25 Intravenou ity o f 370-500 mL) 16:30: 16:27 s, ONCE, 1 [place] injection 00 :00 dose, On Medica l 80 mL [facility] Branch 12/11/22 at 1130, Routine nitroglycer 2022- No .5[in_u 0.5 Inch, Univers in (NITROL) 12-11-25 s] Transderma i ty of 2 % 15:30: 14:31 l (Apply [place] ointment 00 :00 To Skin), Medica l 0.5 Inch ONCE, 1 Branch dose, On [facility] 12/11/22 at 1030, MICHAEL aspirin 2022- No 324mg 324 mg, Unive rs chewable 12-11-25 Oral, ity of tablet 324 15:30: 14:30 ONCE, 1 [place] as mg 00 :00 dose, On [facility] Branch 12/11/22 at 1030, Routine ondansetron 2022- No 4mg 4 mg, Slow [facility] (ZOFRAN 12-11-25 IV Push, ity of (PF)) 15:30: 14:29 ONCE, 1 [place] injection 4 00 :00 dose, On Medi kwame mg [facility] Branch 12/11/22 at 1030, MICHAEL LORazepam 2022- No 1mg 1 mg, Slow U nivers (ATIVAN) 12-11 05-25 IV Push, ity of injection 1 15:00: 14:57 ONCE, 1 [place] mg 00 :00 dose, On Medical [facility] 12/11/22 at 1000, STAT Lacosamide Yes [id number] 100mg Take 1 [facility] (VIMPAT) 5-25 tablet by ity of 100 mg 00:00: mouth in [place] tablet 00 the Medical morning Branch and 1 tablet in the evening. acetaminoph 2022-2022- No 1{tbl} 1 tablet, Univers en-codeine 11-18 Oral, ity of (TYLENOL 05:30: 05:30 ONCE, 1 [place] #3) 300-30 00 :00 dose, On Medic [...] [place] mg 00 :00 dose, On Medical [facility] 11/17/22 Branch at 2245, Routine methocarbam 2022- No 1000mg 1,000 mg, Univers oL 11-18 Intravenou ity of (ROBAXIN) 00:30: 23:47 s, ONCE, 1 [place] injection 00 :00 dose, On Medica l 1,000 mg Thu11/17/22 Branc h at 1930, MICHAEL methocarbam 2022-0 Yes [id number] 1000mg Take 2 [facility] oL 500 mg 5-02 tablets by ity of tablet 00:00: mouth 4 [place] [address] (four) Medical times Branch daily as needed for Pain (scale 7-10). methocarbam 2023-0 Yes [id number] 1000mg Take 2 [facility] oL 500 mg 5-02 tablets by ity of tablet 00:00: mouth 4 [place] [address] (four) Medical times Branch daily as needed [...] Discontinu ed, Routine, Pain (scale 7-10) levETIRAcet 2022-0 Yes 1000mg 1,000 mg, Univers am (KEPPRA) 1-14 IV ity of in NACL 00:00: [place], [place] (ISO-OS[place] 00 Q12H, Medical 1,000 First dose Branch mg/100 mL on Thu RTU 08/01/22 at 1800, Until Discontinu ed, Administer over 15 Minutes, 100 mL MULTIVITAMI 2022-0 Yes 1{tbl} Take 1 Tab [facility] N ORAL 1-13 by mouth ity of 23:49: daily. [place] [address] Medical Branch omega-3 2022-0 Yes 1g Take 1 g Univer s fatty 1-13 by mouth ity of acids-vitam 23:49: daily. [place] in E (FISH 34 Medical OIL) 1,000 Branch mg capsule loratadine 2022-0 Yes Take by Univ ers (CLARITIN 1-13 mouth ity of LIQUI-GEL) 23:49: daily. [place] 10 mg 34 Medical capsule Branch ondansetron 2022-0 Yes 4mg Take 4 mg U nivers 4 mg tablet 1-13 by mouth ity of 23:49: every 8 [place] [address] (eight) Medical hours as Branch needed. pantoprazol 3-0 Yes 40mg Take 40 mg Univers e 40 mg EC 1-13 by mouth ity o f tablet 23:49: daily. [address] MULTIVITAMI 2022-0 Yes 1{tbl} Take 1 Tab [facility] N ORAL 1-13 by mouth ity of 23:49: daily. [place] [address] Medical Branch omega-3 2022-0 Yes 1g Take 1 g Univer s fatty 1-13 by mouth ity of acids-vitam 23:49: daily. [place] (FISH 34 Medical OIL) 1,000 Branch mg capsule loratadine 2022-0 Yes Take by Univ ers (CLARITIN 1-13 mouth ity of LIQUI-GEL) 23:49: daily. [place] 10 mg 34 Medical capsule Branch ondansetron 3-0 Yes 4mg Take 4 mg U nivers 4 mg tablet 1-13 by mouth ity of 23:49: every 8 [place] [address] (eight) Medical hours as Branch needed. pantoprazol 2023-0 Yes 40mg Take 40 mg Univers e 40 mg EC 1-13 by mouth ity o f tablet 23:49: daily. [address] MULTIVITAMI Yes 1{tbl} Take 1 Tab Univers N ORAL 1-13 by mouth ity of 23:49: daily. [address] omega-3 Yes 1g Take 1 g Univer s fatty 1-13 by mouth ity of acids-vitam 23:49: daily. [place] in [place] (FISH 34 Medical OIL) 1,000 Branch mg capsule loratadine 0 Yes Take by Univ ers (CLARITIN 1-13 mouth ity of LIQUI-GEL) 23:49: daily. [place] 10 mg Medical capsule Branch ondansetron Yes 4mg Take 4 mg U nivers 4 mg tablet 1-13 by mouth ity of 23:49: every 8 [place] [address] (eight) Medical hours as Branch needed. pantoprazol 0 Yes 40mg Take 40 mg Univers e 40 mg EC 1-13 by mouth ity o f tablet 23:49: daily. [address] MULTIVITAMI Yes 1{tbl} Take 1 Tab [facility] N ORAL 1-13 by mouth ity of 23:49: daily. [address] omega-3 Yes 1g Take 1 g Univer s fatty 1-13 by mouth ity of acids-vitam 23:49: daily. [place] (FISH 34 Medical OIL) 1,000 Branch mg capsule loratadine Yes Take by [facility] ers (CLARITIN 1-13 mouth ity of LIQUI-GEL) 23:49: daily. [place] 10 mg Medical capsule Branch ondansetron 0 Yes 4mg Take 4 mg U nivers 4 mg tablet 1-13 by mouth ity of 23:49: every 8 [place] [address] (eight) Medical hours as Branch needed. pantoprazol 2022-0 Yes 40mg Take 40 mg Univers e 40 mg EC 1-13 by mouth ity o f tablet 23:49: daily. [address] MULTIVITAMI Yes 1{tbl} Take 1 Tab [facility] N ORAL 1-13 by mouth ity of 23:49: daily. [address] omega-3 2022-0 Yes 1g Take 1 g Univer s fatty 1-13 by mouth ity of acids-vitam 23:49: daily. [place] (FISH 34 Medical OIL) 1,000 Branch mg capsule loratadine 0 Yes Take by Univ ers (CLARITIN 08-01 mouth ity of LIQUI-GEL) 23:49: daily. [place] 10 mg 34 Medical capsule Branch ondansetron 0 Yes 4mg Take 4 mg U nivers 4 mg tablet 08-01 by mouth ity of 23:49: every 8 [place] [address] (eight) Medical hours as Branch needed. pantoprazol 0 Yes 40mg Take 40 mg Univers e 40 mg EC 08-01 by mouth ity o f tablet 23:49: daily. [place] [address] Medical Branch benzonatate 0 Yes 100mg 100 mg, Un lois (TESSALON 08-01 Oral, Q8H, ity of PERLES) 20:00: First [...] Shortness of Breath sulfur 2022-0 202- No [id number] 5mL 5 mL, Unive rs hexafluorid 08-01 Intravenou i ty of e microsphr 17:00: 17:00 s, ONCE, 1 [place] (LUMASON) 00 :00 dose, On Medica l injection 5 Fri Branch mL 08/01/22 at 1100, Routine
count team member approving Restricted medication : KYLEE MONTEZ pantoprazol 2023-0 Yes 40mg 40 mg, Univ ers e [...] as mg 54 Starting Medical on [place] [facility] 07/31/22 at 2352, Until Discontinu ed, Routine, Seizures, Agitation, Anxiety, ETOH / Cocaine Withdrawl foLIC acid 2023-0 Yes 1mg 1 mg, Univer s (FOLATE) 13 Oral, ity of tablet 1 mg 05:45: [place] Medical on [facility] 07/31/22 at 2345, Until Discontinu ed, Routine thiamine 2022-0 Yes 100mg 100 mg, Unive rs (VITAMIN 13 Oral, ity of B1) tablet 05:45: DAILY, [place] 100 mg 00 First dose Medical on [facility] 07/31/22 at 2345, Until Discontinu ed, Routine LORazepam 0 2022- No .5mg 0.5 mg, Univ ers (ATIVAN) 08-01 Slow IV ity of injection 05:30: 05:29 Push, [place] 0.5 mg 00 :00 ONCE, 1 Medical dose, On [facility] 07/31/22 at 2330, MICHAEL atorvastati 0 Yes [...] 25 02 Starting Medica l mg on [facility] 07/31/22 at 1832, Until Discontinu ed, Routine, Itching enoxaparin 0 Yes 40mg 40 mg, Unive rs (LOVENOX) 07-31 Subcutaneo ity of injection 23:00: [place], [place], [place] 40 [place] 00 First dose Medical on [facility] 07/31/22 at 1700, Until Discontinu ed, Routine morpHINE (2 2022- No 2mg 2 mg, Slow Univers mg/mL) 07-31 IV Push, ity of injection 2 23:00: 22:29 ONCE, 1 [place] mg 00 :00 dose, On Medical [facility] 07/31/22 at 1700, Routine HYDROcodone [...] Branch Arpita 07/31/22 at 1545, Routine ondansetron 0 2022- No 4mg 4 mg, Slow Univers [...] MICHAEL ipratropium 2022- No 3mL 3 mL, [facility] ers -albuteroL 07-31 Inhalation it y of (DUONEB) 19:30: 18:48 , ONCE, 1 [place] as 0.5 mg-3 00 :00 dose, On Medical mg(2.5 mg Arpita Branch base)/3 mL 07/31/22 at nebulizer 1330, MICHAEL solution 3 mL pantoprazol Yes 40mg Take 40 mg Univers e 40 mg EC 12 by mouth ity o f tablet 17:15: daily. [place] 40 [facility] Branch MULTIVITAMI Yes 1{tbl} Take 1 Tab Univers N ORAL -12 by mouth ity of 15:50: daily. [place] 57 Medical Branch loratadine Yes Take by [facility] ers (CLARITIN 07-31 mouth ity of LIQUI-GEL) 15:50: daily. [place] 10 mg 57 Medical capsule Branch ondansetron Yes 4mg Take 4 mg U nivers 4 mg tablet 12 by mouth ity of 15:50: every 8 [place] 57 (eight) Medical hours as Branch needed. omega-3 Yes 1g Take 1 g Univer s fatty 12 by mouth ity of acids-vitam 15:21: daily. [place] in E (FISH 27 Medical OIL) 1,000 Branch mg capsule TAKE ONE No (1) 1-09 TABLET(S) 00:00: BY MOUTH 00 THREE TIMES A DAY NEEDED. Methylpredn 2021-07- No [id number] 4mg Take 1 Univers isolone 4 0-22 10-24 tablet ity of mg tablet 00:00: 04:59 through [place] 00 :00 enteral Medical tube in Branch the morning for 1 dose. Methylpredn 2021-07- No [id number] 4mg Take 1 Univers isolone 4 0-21 10-23 tablet ity of mg tablet 00:00: 04:59 through [place] 00 :00 enteral Medical tube every Branch 12 (twelve) hours for 2 doses. MULTIVITAMI 2021-07 Yes 1{tbl} Take 1 Tab Univers N ORAL 0-20 by mouth ity of 14:44: daily. [place] 48 Medical Branch omega-3 2021-07 Yes 1g Take 1 g Univer s fatty 0-20 by mouth ity of acids-vitam 14:44: daily. [place] in [place] (FISH 48 Medical OIL) 1,000 Branch mg capsule loratadine 2021-07 Yes Take by [facility] ers (CLARITIN 0-20 mouth ity of LIQUI-GEL) 14:44: daily. [place] 10 mg 48 Medical capsule Branch ondansetron 2021-07 Yes 4mg Take 4 mg U nivers (ZOFRAN) 4 0-20 by mouth ity o f mg tablet 14:44: every 8 [place] 48 (eight) Medical hours as Branch needed. pantoprazol 2021-07 Yes 40mg Take 40 mg Univers e 0-20 by mouth ity of (PROTONIX) 14:44: daily. [place] 40 mg EC 48 Medical tablet Branch DULoxetine 2021-07 Yes 30mg 30 mg, Unive rs (CYMBALTA) 0-20 Oral, ity of capsule 30 14:00: DAILY, [place] mg 00 First dose Medical on [facility] Branch 05/08/22 at 0900, Until Discontinu ed, Routine divalproex 2021-07 Yes 1000mg 1,000 mg, Univers (DEPAKOTE) 0-20 Oral, BID, ity of EC tablet 13:00: First dose [place] 1,000 mg 00 (after Medical last Branch modificati on) on [facility] 05/08/22 at 0800, Until Discontinu ed, Routine Methylpredn 2021-07 No 4mg 4 mg, [facility] ers isolone 0-20 10-21 Oral, Q8H ity of (MEDROL) 08:50: 08:59 TAPER, 3 [place] tablet 4 mg 10 :00 doses, Medica l First dose Branch on [facility] 05/08/22 at 0400, Last dose on [facility] 05/08/22 at 2000, Routine acetaminoph 2021-07 Yes 1{tbl} 1 tablet, Univers en-codeine 0-20 Oral, ity of (TYLENOL 04:07: Q4HPRN, [place] #3) 300-30 01 Starting Medic al mg tablet 1 on Thu Branch tablet 05/07/22 at 2307, Until Discontinu ed, Routine, Pain (scale 7-10) morpHINE (2 2021-07 Yes 2mg 2 mg, Slow Univers mg/mL) 0-20 IV Push, ity of injection 2 03:03: Q4HPRN, [place] as mg 15 Starting Medical on Thu [place] 05/07/22 at 2203, Until Discontinu ed, Routine, Pain (scale 7-10) LORazepam 2021-07 Yes 1mg 1 mg, Univers (ATIVAN) 0-20 Oral, ity of tablet 1 mg 00:02: Q6HPRN, [place] as 18 Starting Medical on Thu [place] 05/07/22 at 1902, Until Discontinu ed, Routine, Anxiety cyclobenzap 2021-07 Yes [id number] 5mg Take 1 Univers rine 5 mg 0-20 tablet by ity o f tablet 00:00: mouth in [place] [address] the morning Branch and 1 tablet at noon and 1 tablet in the evening. cyclobenzap 2021-07 Yes [id number] 5mg Take 1 Univers rine 5 mg 0-20 tablet by ity o f tablet 00:00: mouth in [place] [address] the [facility] morning Branch and 1 tablet at noon and 1 tablet in the evening. cyclobenzap 2021-07 Yes [id number] 5mg Take 1 Univers rine 5 mg 0-20 tablet by ity o f tablet 00:00: mouth in [place] [address] the [facility] morning Branch and 1 tablet at noon and 1 tablet in the evening. cyclobenzap 2021-07 Yes [id number] 5mg Take 1 Univers rine 5 mg 0-20 tablet by ity o f tablet 00:00: mouth in [place] the Medical morning Branch and 1 tablet at noon and 1 tablet in the evening. cyclobenzap 2021-07 Yes [id number] 5mg Take 1 Univers rine 5 mg 0-20 tablet by ity o f tablet 00:00: mouth in [place] [address] the [facility] morning Branch and 1 tablet at noon and 1 tablet in the evening. cyclobenzap 2021-07 Yes [id number] 5mg Take 1 Univers rine 5 mg 0-20 tablet by ity o f tablet 00:00: mouth in [place] [address] the Medical morning Branch and 1 tablet at noon and 1 tablet in the evening. cyclobenzap 2021-07 Yes [id number] 5mg Take 1 Univers rine 5 mg 0-20 tablet by ity o f tablet 00:00: mouth in [place] 00 the Medical morning Branch and 1 tablet at noon and 1 tablet in the evening. DULoxetine 2021-07- No [id number] 60mg Take 2 Univers (CYMBALTA) 0-20 11-20 capsules ity of 30 mg 00:00: 05:59 by mouth [place] capsule 00 :00 in the Medical morning Branch for 30 days. divalproex 2021-07- No [id number] 750mg Take 3 Univers (DEPAKOTE) 0-20 11-20 tablets by it y of 250 mg EC 00:00: 05:59 mouth [place] tablet 00 :00 every 8 Medical (eight) Branch hours for 30 days. LORazepam 1 2021-07- No [id number] 1mg Take 1 Univers mg tablet 0-20 [...] Indication s: acute pain Methylpredn 2021-07- No [id number] 4mg Take 1 Univers isolone 4 0-20 10-22 tablet by ity of mg tablet 00:00: 04:59 mouth [place] 00 :00 every 8 Medical (eight) Branch hours for 3 doses. divalproex 2021-07- No 750mg 750 mg, Un lois (DEPAKOTE) 0-19 10-20 Oral, BID, it y of EC tablet 01:00: 09:40 First dose [place] 750 mg 00 :23 on [facility] 05/06/22 Branch at 1999, Until Discontinu ed, Routine levETIRAcet 2021-07- No [...] 1 Medical 1,000 dose, On mg/100 mL RTU 05/06/22 at 0000, Administer over 15 Minutes, 100 mL methocarbam 2021-07 No 500mg 500 mg, U nivers oL 05-06 Oral, QID, ity of (ROBAXIN) 02:15: 23:21 First dose [place] tablet 500 00 :42 on [facility] Medical mg 05/05/22 Branch at 2115, Until Discontinu ed, Routine LORazepam 2021-07 No 2mg 2 mg, Univer s (ATIVAN) 05-06 Oral, ity of tablet 2 mg 01:30: 01:03 ONCE, 1 [place] 00 :00 dose, On Medical [facility] 05/05/22 at 2030, Routine levETIRAcet 2021-07 [...] mg 00 First dose Medical on [facility] 05/05/22 at 1915, Until Discontinu ed, Routine levETIRAcet 2021-07 No 1000mg 1,000 mg, Univers am (KEPPRA) 05-05 IV ity of in NACL 19:45: 20:05 Piggyback, [place] as (ISO-OS) 00 :00 ONCE, 1 Medical 1,000 dose, On [place] mg/100 mL [facility] RTU 05/05/22 at 1445, Administer [...] mg 00 First dose Medical on [facility] 05/05/22 at 1430, Until Discontinu ed, [...] [place] tablet 5 mg 00 on [facility] Medica l 05/05/22 Branch at [...] dose Medi kwame 40 mg on [facility] 05/05/22 at 0900, Until Discontinu ed, Routine docusate 2021-07 Yes 100mg 100 mg, Unive rs (COLACE) 0-17 Oral, ity of capsule 100 14:00: DAILY, [place] mg 00 First dose Medical on [facility] 05/05/22 at 0900, Until Discontinu ed, Routine HYDROcodone 2021-07- No 1{tbl} 1 tablet, Univers -acetaminop 0-17 10-17 Oral, ity of hen (NORCO) 10:32: 19:18 Q6HPRN, [place] 10-325 mg 02 :52 Starting Medica l tablet 1 on [facility] tablet 05/05/22 at 0532, Until Thu05/05/22 at 1418, Routine, Pain (scale 7-10) ondansetron 2021-07 Yes 4mg 4 mg, Slow Univers (ZOFRAN 0-17 IV Push, ity of (PF)) 06:49: Q6HPRN, [place] injection 4 57 Starting Medi kwame mg on [facility] Branch 05/05/22 at 0149, Until Discontinu ed, Routine, Nausea and Vomiting (N/V) HYDROcodone 2021-07- No 1{tbl} 1 tablet, Univers -acetaminop 0-17 -17 Oral, ity of hen (NORCO 06:49: 10:32 Q6HPRN, [place] as 5) 5-325 mg 41 :14 Starting Medi kwame tablet 1 on [facility] tablet 05/05/22 at 0149, Until Thu05/05/22 at 0532, Routine, Pain (scale 7-10) acetaminoph 2021-07- No 325mg 325 mg, U nivers en 0-17 05-05 Oral, ity of (TYLENOL) 06:49: 19:18 Q4HPRN, [place] tablet 325 39 :52 Starting Medic al mg on [facility] 05/05/22 at 0149, Until Thu05/05/22 at 1418, Routine, Pain (scale 4-6) ondansetron 2021-07- No 4mg 4 mg, Univ ers (ZOFRAN) 0-17 05-05 Oral, ity of tablet 4 mg 04:00: 03:26 ONCE, 1 [place] 00 :00 dose, On [facility] 05/04/22 at 2300, Routine morpHINE (2 2021-07- No 2mg 2 mg, Slow Univers mg/mL) 017 05-05 IV Push, ity of injection 2 04:00: 03:26 ONCE, 1 [place] mg 00 :00 dose, On [facility] 05/04/22 at 2300, Routine aspirin 81 2021-0 Yes [id number] 81mg Take 1 U nivers mg chewable 9-28 tablet by ity of tablet 00:00: mouth in [place] 00 the Medical morning. Branch aspirin 81 0 Yes [id number] 81mg Take 1 U nivers mg chewable 9-28 tablet by ity of tablet 00:00: mouth in [place] 00 the Medical morning. Branch aspirin 81 0 Yes [id number] 81mg Take 1 U nivers mg chewable 9-28 tablet by ity of tablet 00:00: mouth in [place] 00 the Medical morning. Branch aspirin 81 0 Yes [id number] 81mg Take 1 U nivers mg chewable 9-28 tablet by ity of tablet 00:00: mouth in [place] 00 the Medical morning. Branch aspirin 81 0 Yes [id number] 81mg Take 1 U nivers mg chewable 9-28 tablet by ity of tablet 00:00: mouth in [place] 00 the Medical morning. Branch aspirin 81 0 Yes [id number] 81mg Take 1 U nivers mg chewable 9-28 tablet by ity of tablet 00:00: mouth in [place] the Medical morning. Branch aspirin 81 0 Yes [id number] 81mg Take 1 U nivers mg chewable 9-28 tablet by ity of tablet 00:00: mouth in [place] the Medical morning. Branch aspirin 81 0 Yes [id number] 81mg Take 1 U nivers mg chewable 9-28 tablet by ity of tablet 00:00: mouth in [place] 00 the Medical morning. Branch MULTIVITAMI Yes 1{tbl} Take 1 Tab Univers N ORAL 9- by mouth ity of 17:39: daily. [place] 14 Medical Branch omega-3 Yes 1g Take [...] Yes 40mg Take 40 mg Univers e 9- by mouth ity of (PROTONIX) 17:39: daily. [...] Starting Medic al mg tablet 1 on tablet 04/15/22 at 0039, Until Thu04/15/22 at 0939, Routine, Pain (scale 4-6), Pain (scale 1-3) LORazepam 2021- No 2mg 2 mg, Univer s (ATIVAN) 04-15 Oral, ity of tablet 2 mg 03:30: 10:27 ONCE, 1 [place] 00 :00 dose, On Medical [facility] Branch 04/14/22 at 2230, Routine levETIRAcet Yes 1000mg 1,000 mg, Univers am (KEPPRA) 04-15 Oral, BID, it y of tablet 02:45: First dose [place] 1,000 mg 00 (after Medical last Branch modificati on) on [facility] 04/14/22 at 2145, Until Discontinu ed, Routine ketorolac 2021- No 15mg 15 mg, Unive rs (TORADOL) 04-15 Slow IV ity of injection 02:13: 02:22 Push, [place] 15 mg 00 :00 ONCE, 1 Medical dose, On Branch [facility] 04/14/22 at 2115, Routine levETIRAcet 0 Yes [id number] 1000mg Take 1 Univers am 1,000 mg 04-15 tablet by ity of tablet 00:00: mouth in [place] 00 the Medical morning Branch and 1 tablet in the evening. atorvastati Yes [id number] 40mg Take 1 Univers n 40 mg 9-27 tablet by ity of tablet 00:00: mouth at [place] [address] bedtime. Medical Branch atorvastati Yes [id number] 40mg Take 1 Univers n 40 mg 9-27 tablet by ity of tablet 00:00: mouth at [place] [address] bedtime. Medical Branch atorvastati Yes [id number] 40mg Take 1 Univers n 40 mg 9-27 tablet by ity of tablet 00:00: mouth at [place] [address] bedtime. Medical Branch atorvastati Yes [id number] 40mg Take 1 Univers n 40 mg 9-27 tablet by ity of tablet 00:00: mouth at [place] [address] bedtime. Medical Branch atorvastati Yes [id number] 40mg Take 1 Univers n 40 mg 9-27 tablet by ity of tablet 00:00: mouth at [place] [address] bedtime. Medical Branch atorvastati Yes [id number] 40mg Take 1 Univers n 40 mg 9-27 tablet by ity of tablet 00:00: mouth at [place] [address] bedtime. Medical Branch atorvastati Yes [id number] 40mg Take 1 Univers n 40 mg 9-27 tablet by ity of tablet 00:00: mouth at [place] [address] bedtime. Medical Branch atorvastati Yes [id number] 40mg Take 1 Univers n 40 mg 9-27 tablet by ity of tablet 00:00: mouth at [place] [address] bedtime. Medical Branch levETIRAcet 2021- No [id number] 1000mg Take 1 Univers am 1,000 mg 9-27 10-20 tablet by it y of tablet 00:00: 00:00 mouth in [place] 00 :00 the Medical morning Branch and 1 tablet in the evening. lidocaine 5 2021- No [id number] 1{patch Apply 1 Univers % (700 9-27 [...] 12 Medical patch 1 Hours, Branch Patch [id number], Starting on Thu04/14/22 at 1645, Until Discontinu [...] Starting Medica l tablet 1 on Thu tablet 04/14/22 at 1629, Until 04/15/22 at 0039, Routine, Pain (scale 7-10), Pain (scale 4-6) sulfur 0 2022- No [id number] 5mL 5 mL, Univ ers hexafluorid 04-14 Intravenou i ty of e microsphr 16:45: 16:45 s, ONCE, 1 [place] (LUMASON) 00 :00 dose, On Medica l injection 5 Thu Branch mL 04/14/22 at 1145, Routine
count team member approving Restricted medication : [employer] clopidogreL Yes 75mg 75 mg, Univ ers (PLAVIX) 75 04-14 Oral, ity of mg tablet 14:00: DAILY, [place] 75 mg 00 First dose Medical on [facility] 04/14/22 at 0900, Until Discontinu ed, Routine pantoprazol Yes 40mg 40 mg, Univ ers e 04-14 Oral, ity of (PROTONIX) 14:00: DAILY, [place] EC tablet 00 First dose Medi kwame 40 mg on [facility] 04/14/22 at 0900, Until Discontinu ed, Routine atorvastati Yes 40mg 40 mg, Univ ers n (LIPITOR) 04-14 Oral, QHS, it y of tablet 40 02:00: First dose [place] mg 00 on [facility] 04/13/22 at Branch 2100, Until Discontinu ed, Routine LORazepam 2021- No 1mg 1 mg, Univer s (ATIVAN) 04-14 Oral, ity of tablet 1 mg 01:30: 01:45 ONCE, 1 [place] 00 :00 dose, On Medical [facility] 04/13/22 at 2030, Routine methocarbam Yes 500mg 500 mg, Un lois oL 04-14 Oral, QID, ity of (ROBAXIN) 01:00: First dose [place] tablet 500 00 on [facility] mg 04/13/22 at Branch 2000, Until Discontinu ed, Routine heparin Yes 5000U 5,000 Univers (porcine) 04-14 Units, ity of injection 01:00: Subcutaneo [place] 5,000 Units 00 us, Q12H, Med ical First dose Branch on [facility] 04/13/22 at 2000, Until Discontinu ed, Routine acetaminoph No 650mg 650 mg, U nivers en 04-14 Oral, ity of (TYLENOL) 00:23: 21:29 Q6HPRN, [place] tablet 650 25 :42 Starting Medic al mg on [facility] 04/13/22 at 1923, Until [facility] 04/14/22 at 1629, Routine, Pain (scale 1-3), Pain (scale 4-6), Temp > 38.5 C, Temp > 37.5 C lidocaine 2021- No 1{patch 1 Patch, Univers (LIDODERM) 9-26 09-26 } Topical, ity of 5 % (700 00:22: 13:51 Administer [place] mg/patch) 00 :00 over 12 Medical patch 1 Hours, Branch Patch ONCE, 1 dose, On [facility] 04/13/22 at 1930, Routine FENTanyl PF 2021- No 50ug 50 mcg, Un losi (SUBLIMAZE 04-13 Slow IV ity o f (PF)) 20:30: 19:22 Push, [place] injection 00 :00 ONCE, 1 Medical 50 mcg dose, On [facility] 04/13/22 at 1530, Routine aspirin 2021- No 650mg 650 mg, Unive rs chewable 04-13 Oral, ity of tablet 650 20:15: 20:15 ONCE, 1 [place] as mg 00 :00 dose, On Medical [facility] 04/13/22 at 1515, Routine clopidogreL 2021- No 300mg 300 mg, U nivers (PLAVIX) 04-13 Oral, ity of 300 mg 20:00: 19:15 ONCE, 1 [place] tablet 300 00 :00 dose, On Medic al mg [facility] 04/13/22 at 1500, Routine ondansetron 2021- No 4mg 4 mg, Slow Univers (ZOFRAN 04-13 IV Push, ity of (PF)) 19:30: 19:22 ONCE, 1 [place] injection 4 00 :00 dose, On Medi kwame mg [facility] 04/13/22 at 1430, MICHAEL iopamidol 2021- No [id number] 100mL 100 mL, Univers (ISOVUE 04-13 Intravenou ity o f 370-500 mL) 18:31: 18:32 s, ONCE, 1 [place] injection 00 :00 dose, On Medica l 100 mL [facility] 04/13/22 at 1345, Routine NaCl 0.9% Yes 5mL 5 mL, Slow Un lois (NS) 04-13 IV Push, ity of injection 5 18:14: PRN - SEE [place] mL 11 INSTRUCTIO Medical NS, Branch Starting on [facility] 04/13/22 at 1314, Until Discontinu ed, 10 [...] kwame mg 11/23/21 Branch at 1645, MICHAEL levETIRAcet 2021- No 1500mg 1,500 mg, Univers am (KEPPRA) 11-23 IV ity of in NACL 21:30: 20:47 Piggyback, [place] as (ISO-OS) 00 :00 ONCE, 1 Medical 1,500 dose, On Branch mg/100 mL 11/23/21 RTU at 1630, Administer over 15 Minutes, 100 mL NaCl 0.9% 2021- No 1000mL at 999 [...] On Medical 11/23/21 Branch at 1630, STAT Dose 2022-0 No Unknown 4-08 00:00: 00 Dose 2022-0 [...] hr 00:00: tablet, 00 extended release Dose 2020- No Unknown 2-30 00:00: 00 ibuprofen 2020- No 1mg 800 mg 2-02 tablet 00:00: 00 ibuprofen 2020- No 1mg 800 mg 2-02 tablet 00:00: 00 levetiracet 2020-07 No 1mg am 500 mg 1-30 tablet 00:00: 00 Dose 2020- No Unknown 1-30 00:00: 00 levetiracet 2020-07 No 1mg am 500 mg 1-30 tablet 00:00: 00 Dose 2020- No Unknown 1-30 00:00: 00 levoFLOXaci 2020- [...] MICHAEL nebulizer solution 3 mL levoFLOXaci No [id number] 500mg Take 1 Univers n 500 mg 03-17 tablet by ity o f tablet 00:00: 04:59 mouth [place] 00 :00 daily for Medical 6 days. Branch levoFLOXaci 2020- No [id number] 500mg Take 1 Univers n 500 mg 03-17 tablet by ity o f tablet 00:00: 04:59 mouth [place] 00 :00 daily for Medical 6 days. Branch levoFLOXaci 2020- No [id number] 500mg Take 1 Univers n 500 mg 03-17 tablet by ity o f tablet 00:00: 04:59 mouth [place] 00 :00 daily for Medical 6 days. Branch levoFLOXaci No [id number] 500mg Take 1 Univers n 500 mg 03-17 tablet by ity o f tablet 00:00: 04:59 mouth [place] 00 :00 daily for Medical 6 days. Branch predniSONE 2020- No [id number] 30mg Take 3 Univers 10 mg 03-17- tablets by ity of tablet 00:00: 04:59 mouth [place] 00 :00 daily for Medical 4 days. Branch predniSONE 2020- No [id number] 30mg Take 3 Univers 10 mg -17 04- tablets by ity of tablet 00:00: 04:59 mouth [place] 00 :00 daily for Medical 4 days. Branch predniSONE 2020- No [id number] 30mg Take 3 Univers 10 mg -17 04- tablets by ity of tablet 00:00: 04:59 mouth [place] 00 :00 daily for Medical 4 days. [place] predniSONE 2020- No [id number] 30mg Take 3 Univers 10 mg 03-17 tablets by ity of tablet 00:00: 04:59 mouth [place] 00 :00 daily for Medical 4 days. [place] albuterol 2020- No [id number] 4{puff} 4 Puff, Univers (VENTOLIN) 03-15 Inhalation it y of inhaler 4 01:45: 00:44 , ONCE, 1 [place] Puff 00 :00 dose, Arpita Medical 03/14/21 at [place] 2044, Routine dexamethaso 2020- No [id number] 10mg 10 mg, Univers ne 03-15 Intramuscu ity of (DECADRON) 01:45: 00:45 lar, ONCE, [place] injection 00 :00 1 dose, Medical 10 mg [facility] 03/14/21 at 5, Routine albuterol Yes [id number] 2.5mg Inhale 3 Univers 2.5 mg /3 8-27 mL every 4 ity of mL (0.083 00:00: (four) [place] %) 00 hours as Medical nebulizer needed for Bran ch solution Wheezing or Shortness of Breath. albuterol Yes [id number] 2.5mg Inhale 3 Univers 2.5 mg /3 8-27 mL every 4 ity of mL (0.083 00:00: (four) [place] %) 00 hours as Medical nebulizer needed for Bran ch solution Wheezing or Shortness of Breath. albuterol 2020-0 Yes [id number] 2.5mg Inhale 3 Univers 2.5 mg /3 8-27 mL every 4 ity of mL (0.083 00:00: (four) [place] %) 00 hours as Medical nebulizer needed for Bran ch solution Wheezing or Shortness of Breath. albuterol 2020-0 Yes [id number] 2.5mg Inhale 3 Univers 2.5 mg /3 8-27 mL every 4 ity of mL (0.083 00:00: (four) [place] %) 00 hours as Medical nebulizer needed for Bran ch solution Wheezing or Shortness of Breath. albuterol 2020-0 Yes [id number] 2.5mg Inhale 3 Univers 2.5 mg /3 8-27 mL every 4 ity of mL (0.083 00:00: (four) [place] %) 00 hours as Medical nebulizer needed for Bran ch solution Wheezing or Shortness of Breath. albuterol 2020-0 Yes [id number] 2.5mg Inhale 3 Univers 2.5 mg /3 8-27 mL every 4 ity of mL (0.083 00:00: (four) [place] %) 00 hours as Medical nebulizer needed for Bran ch solution Wheezing or Shortness of Breath. albuterol 2020-0 Yes [id number] 2.5mg Inhale 3 Univers 2.5 mg /3 8-27 mL every 4 ity of mL (0.083 00:00: (four) [place] %) 00 hours as Medical nebulizer needed for Bran ch solution Wheezing or Shortness of Breath. albuterol 2020-0 Yes [id number] 2.5mg Inhale 3 Univers 2.5 mg /3 8-27 mL every 4 ity of mL (0.083 00:00: (four) [place] %) 00 hours as Medical nebulizer needed for Bran ch solution Wheezing or Shortness of Breath. albuterol 2020-0 Yes [id number] 2.5mg Inhale 3 Univers 2.5 mg /3 8-27 mL every 4 ity of mL (0.083 00:00: (four) [place] %) 00 hours as Medical nebulizer needed for Bran ch solution Wheezing or Shortness of Breath. albuterol 2020-0 Yes [id number] 2.5mg Inhale 3 Univers 2.5 mg /3 8-27 mL every 4 ity of mL (0.083 00:00: (four) [place] %) 00 hours as Medical nebulizer needed for Bran ch solution Wheezing or Shortness of Breath. albuterol 2020-0 Yes [id number] 2.5mg Inhale 3 Univers 2.5 mg /3 8-27 mL every 4 ity of mL (0.083 00:00: (four) [place] %) 00 hours as Medical nebulizer needed for Bran ch solution Wheezing or Shortness of Breath. albuterol 2020-0 Yes [id number] 2.5mg Inhale 3 Univers 2.5 mg /3 8-27 mL every 4 ity of mL (0.083 00:00: (four) [place] %) 00 hours as Medical nebulizer needed for Bran ch solution Wheezing or Shortness of Breath. albuterol 2020-0 Yes [id number] 2.5mg Inhale 3 Univers 2.5 mg /3 8-27 mL every 4 ity of mL (0.083 00:00: (four) [place] %) 00 hours as Medical nebulizer needed for Bran ch solution Wheezing or Shortness of Breath. albuterol 2020-0 Yes [id number] 2.5mg Inhale 3 Univers 2.5 mg /3 8-27 mL every 4 ity of mL (0.083 00:00: (four) [place] %) 00 hours as Medical nebulizer needed for Bran ch solution Wheezing or Shortness of Breath. albuterol 2020-0 Yes [id number] 2.5mg Inhale 3 Univers 2.5 mg /3 8-27 mL every 4 ity of mL (0.083 00:00: (four) [place] %) 00 hours as Medical nebulizer needed for Bran ch solution Wheezing or Shortness of Breath. albuterol 2020-0 Yes [id number] 2.5mg Inhale 3 Univers 2.5 mg /3 8-27 mL every 4 ity of mL (0.083 00:00: (four) [place] %) 00 hours as Medical nebulizer needed for Bran ch solution Wheezing or Shortness of Breath. albuterol 2020-0 Yes [id number] 2.5mg Inhale 3 Univers 2.5 mg /3 8-27 mL every 4 ity of mL (0.083 00:00: (four) [place] %) 00 hours as Medical nebulizer needed for Bran ch solution Wheezing or Shortness of Breath. albuterol Yes [id number] 2.5mg Inhale 3 Univers 2.5 mg /3 [...] (KEPPRA 8-03 mouth. ity of ORAL) 19:45: [address] levetiracet Yes Take by Uni vers am (KEPPRA 8-03 mouth. ity of ORAL) 19:45: [address] levetiracet 0 Yes Take by Uni vers am (KEPPRA 8-03 mouth. ity of ORAL) 19:45: [address] levetiracet 0 Yes Take by Uni vers am (KEPPRA 8-03 mouth. ity of ORAL) 19:45: [address] levetiracet 0 Yes Take by Uni vers am (KEPPRA 8-03 mouth. ity of ORAL) 19:45: [address] levetiracet 0 Yes Take by Uni vers am (KEPPRA 8-03 mouth. ity of ORAL) 19:45: [address] LISINOPRIL- 2020- No Take by Un [...] Tue Medica l NaCl 0.9% 02/19/[address] [facility] h (NS) 50 mL 1415, 50 [...] at Branch 1200, MICHAEL iopamidol 2020- No [id number] 100mL 100 mL, Univers (ISOVUE 02-19 Intravenou ity o f 370-500 mL) 16:35: 16:45 s, ONCE, 1 [place] injection 00 :00 dose, Tue Medic al 100 mL 02/19/21 at Branch 1145, Routine levetiracet Yes Take by Uni vers am (KEPPRA 02-19 mouth. ity of ORAL) 14:45: [address] Branch levetiracet 2021-0 Yes Take by Uni vers am (KEPPRA 8-03 mouth. ity of ORAL) 14:45: [address] Branch levetiracet 0 Yes Take by Uni vers am (KEPPRA 8-03 mouth. ity of ORAL) 14:45: [address] levetiracet 2020-0 Yes Take by Uni vers am (KEPPRA 8-03 mouth. ity of ORAL) 14:45: [address] levetiracet 0 Yes Take by Uni vers am (KEPPRA 8-03 mouth. ity of ORAL) 14:45: [address] Branch proMETHazin 2020-0 Yes [id number] 25mg Take 1 Univers e 25 mg 8-03 tablet by ity of tablet 00:00: mouth [place] 00 every 6 Medical (six) Branch hours as needed for Nausea and Vomiting (N/V). dicyclomine 2020-0 Yes [id number] 20mg Take 1 Univers 20 mg 8-03 tablet by ity of tablet 00:00: mouth 4 (four) Medical times Branch daily as needed for Abdominal pain. proMETHazin 2020-0 Yes [id number] 25mg Take 1 Univers e 25 mg 8-03 tablet by ity of tablet 00:00: mouth [place] 00 every 6 Medical (six) Branch hours as needed for Nausea and Vomiting (N/V). dicyclomine 2020-0 Yes [id number] 20mg Take 1 [facility] 20 mg 8-03 tablet by ity of tablet 00:00: mouth 4 00 (four) Medical times Branch daily as needed for Abdominal pain. proMETHazin 2020-0 Yes [id number] 25mg Take 1 [facility] e 25 mg 8-03 tablet by ity of tablet 00:00: mouth [place] 00 every 6 Medical (six) Branch hours as needed for Nausea and Vomiting (N/V). dicyclomine 2020-0 Yes [id number] 20mg Take 1 [facility] 20 mg 8-03 tablet by ity of tablet 00:00: mouth 4 [place] 00 (four) Medical times Branch daily as needed for Abdominal pain. proMETHazin 2020-0 Yes [id number] 25mg Take 1 [facility] e 25 mg 8-03 tablet by ity of tablet 00:00: mouth [place] 00 every 6 Medical (six) Branch hours as needed for Nausea and Vomiting (N/V). dicyclomine 2021-0 Yes [id number] 20mg Take 1 [facility] 20 mg 8-03 tablet by ity of tablet 00:00: mouth 00 (four) Medical times Branch daily as needed for Abdominal pain. proMETHazin 2020-0 Yes [id number] 25mg Take 1 [facility] e 25 mg 8-03 tablet by ity of tablet 00:00: mouth [place] 00 every 6 Medical (six) Branch hours as needed for Nausea and Vomiting (N/V). dicyclomine 2020-0 Yes [id number] 20mg Take 1 [facility] 20 mg 8-03 tablet by ity of tablet 00:00: mouth (four) Medical times Branch daily as needed for Abdominal pain. proMETHazin 2020-0 Yes [id number] 25mg Take 1 [facility] e 25 mg 8-03 tablet by ity of tablet 00:00: mouth [place] 00 every 6 Medical (six) Branch hours as needed for Nausea and Vomiting (N/V). dicyclomine 2020-0 Yes [id number] 20mg Take 1 [facility] 20 mg 8-03 tablet by ity of tablet 00:00: mouth (four) Medical times Branch daily as needed for Abdominal pain. proMETHazin 2020-0 Yes [id number] 25mg Take 1 [facility] e 25 mg 8-03 tablet by ity of tablet 00:00: mouth [place] 00 every 6 Medical (six) Branch hours as needed for Nausea and Vomiting (N/V). dicyclomine 2020-0 Yes [id number] 20mg Take 1 [facility] 20 mg 8-03 tablet by ity of tablet 00:00: mouth (four) Medical times Branch daily as needed for Abdominal pain. proMETHazin 2020-0 Yes [id number] 25mg Take 1 [facility] e 25 mg 8-03 tablet by ity of tablet 00:00: mouth [place] 00 every 6 Medical (six) Branch hours as needed for Nausea and Vomiting (N/V). dicyclomine 2021-0 Yes [id number] 20mg Take 1 [facility] 20 mg 8-03 tablet by ity of tablet 00:00: mouth (four) Medical times Branch daily as needed for Abdominal pain. proMETHazin 2020-0 Yes [id number] 25mg Take 1 [facility] e 25 mg 8-03 tablet by ity of tablet 00:00: mouth [place] 00 every 6 Medical (six) Branch hours as needed for Nausea and Vomiting (N/V). dicyclomine 2020-0 Yes [id number] 20mg Take 1 [facility] 20 mg 8-03 tablet by ity of tablet 00:00: mouth 4 00 (four) Medical times Branch daily as needed for Abdominal pain. proMETHazin 2020-0 Yes [id number] 25mg Take 1 [facility] e 25 mg 8-03 tablet by ity of tablet 00:00: mouth [place] 00 every 6 Medical (six) Branch hours as needed for Nausea and Vomiting (N/V). dicyclomine 2020-0 Yes [id number] 20mg Take 1 [facility] 20 mg 8-03 tablet by ity of tablet 00:00: mouth (four) Medical times Branch daily as needed for Abdominal pain. proMETHazin 2020-0 Yes [id number] 25mg Take 1 [facility] e 25 mg 8-03 tablet by ity of tablet 00:00: mouth [place] 00 every 6 Medical (six) Branch hours as needed for Nausea and Vomiting (N/V). dicyclomine 2020-0 Yes [id number] 20mg Take 1 [facility] 20 mg 8-03 tablet by ity of tablet 00:00: mouth (four) Medical times Branch daily as needed for Abdominal pain. proMETHazin 2020-0 Yes [id number] 25mg Take 1 [facility] e 25 mg 8-03 tablet by ity of tablet 00:00: mouth [place] 00 every 6 Medical (six) Branch hours as needed for Nausea and Vomiting (N/V). dicyclomine 2020-0 Yes [id number] 20mg Take 1 [facility] 20 mg 8-03 tablet by ity of tablet 00:00: mouth 4 00 (four) Medical times Branch daily as needed for Abdominal pain. proMETHazin 2020-0 Yes [id number] 25mg Take 1 [facility] e 25 mg 8-03 tablet by ity of tablet 00:00: mouth [place] 00 every 6 Medical (six) Branch hours as needed for Nausea and Vomiting (N/V). dicyclomine 2020-0 Yes [id number] 20mg Take 1 [facility] 20 mg 8-03 tablet by ity of tablet 00:00: mouth 4 00 (four) Medical times Branch daily as needed for Abdominal pain. proMETHazin 2020-0 Yes [id number] 25mg Take 1 [facility] e 25 mg 8-03 tablet by ity of tablet 00:00: mouth [place] 00 every 6 Medical (six) Branch hours as needed for Nausea and Vomiting (N/V). dicyclomine 2020-0 Yes [id number] 20mg Take 1 [facility] 20 mg 8-03 tablet by ity of tablet 00:00: mouth 00 (four) Medical times Branch daily as needed for Abdominal pain. proMETHazin 2020-0 Yes [id number] 25mg Take 1 [facility] e 25 mg 8-03 tablet by ity of tablet 00:00: mouth [place] 00 every 6 Medical (six) Branch hours as needed for Nausea and Vomiting (N/V). dicyclomine 2020-0 Yes [id number] 20mg Take 1 [facility] 20 mg 8-03 tablet by ity of tablet 00:00: mouth (four) Medical times Branch daily as needed for Abdominal pain. proMETHazin 2020-0 Yes [id number] 25mg Take 1 [facility] e 25 mg 8-03 tablet by ity of tablet 00:00: mouth [place] 00 every 6 Medical (six) Branch hours as needed for Nausea and Vomiting (N/V). dicyclomine 2020-0 Yes [id number] 20mg Take 1 [facility] 20 mg 8-03 tablet by ity of tablet 00:00: mouth (four) Medical times Branch daily as needed for Abdominal pain. proMETHazin 2020-0 Yes [id number] 25mg Take 1 [facility] e 25 mg 8-03 tablet by ity of tablet 00:00: mouth [place] 00 every 6 Medical (six) Branch hours as needed for Nausea and Vomiting (N/V). dicyclomine 202-0 Yes [id number] 20mg Take 1 [facility] 20 mg 8-03 tablet by ity of tablet 00:00: mouth 4 (four) Medical times Branch daily as needed for Abdominal pain. proMETHazin 2020-0 Yes [id number] 25mg Take 1 [facility] e 25 mg 8-03 tablet by ity of tablet 00:00: mouth [place] 00 every 6 Medical (six) Branch hours as needed for Nausea and Vomiting (N/V). dicyclomine 2021-0 Yes [id number] 20mg Take 1 [facility] 20 mg 8-03 tablet by ity of tablet 00:00: mouth 4 00 (four) Medical times Branch daily as needed for Abdominal pain. proMETHazin Yes [id number] 25mg Take 1 [facility] e 25 mg 8-03 tablet by ity of tablet 00:00: mouth [place] 00 every 6 Medical (six) Branch hours as needed for Nausea and Vomiting (N/V). dicyclomine Yes [id number] 20mg Take 1 [facility] 20 mg 8-03 [...] o f mg tablet 20:05: every 8 [place] [address] (eight) Medical hours as Branch needed. pantoprazol Yes 40mg Take 40 mg Univers e 7-24 by mouth ity of (PROTONIX) 20:05: daily. [place] 40 mg EC Medical tablet Branch ondansetron Yes 4mg Take 4 mg U nivers (ZOFRAN) 4 7-24 by mouth ity o f mg tablet 20:05: every 8 [place] [address] (eight) Medical hours as Branch needed. pantoprazol Yes 40mg Take 40 mg Univers e 7-24 by mouth ity of (PROTONIX) 20:05: daily. [place] 40 mg EC Medical tablet Branch LISINOPRIL- Yes Take by Uni vers HYDROCHLORO 7-24 mouth. ity of THIAZIDE 20:05: [place] ORAL Medical Branch ondansetron Yes 4mg Take 4 mg U nivers (ZOFRAN) 4 7-24 by mouth ity o f mg tablet 20:05: every 8 [place] [address] (eight) Medical hours as Branch needed. pantoprazol [...] o f mg tablet 20:05: every 8 [place] [address] (eight) Medical hours as Branch needed. pantoprazol 2018-0 Yes 40mg Take 40 mg Univers e 7-24 by mouth ity of (PROTONIX) 20:05: daily. [place] 40 mg EC 01 Medical tablet Branch ondansetron 2018-0 Yes 4mg Take 4 mg U nivers (ZOFRAN) 4 7-24 by mouth ity o f mg tablet 20:05: every 8 [place] [address] (eight) Medical hours as Branch needed. pantoprazol [...] 7-24 by mouth ity of 19:58: daily. [place] [address] Medical Branch loratadine Yes Take by Univ ers (CLARITIN 7-24 mouth ity of LIQUI-GEL) 19:58: daily. [place] 10 mg 14 Medical capsule Branch MULTIVITAMI Yes 1{tbl} Take 1 Tab Univers N ORAL 7-24 by mouth ity of 19:58: daily. [place] [address] Medical Branch loratadine Yes Take by Univ ers (CLARITIN 7-24 mouth ity of LIQUI-GEL) 19:58: daily. [place] 10 mg 14 Medical capsule Branch MULTIVITAMI Yes 1{tbl} Take 1 Tab Univers N ORAL 7-24 by mouth ity of 19:58: daily. [place] [address] Medical Branch loratadine Yes Take by Univ ers (CLARITIN 7-24 mouth ity of LIQUI-GEL) 19:58: daily. [place] 10 mg 14 Medical capsule Branch MULTIVITAMI Yes 1{tbl} Take 1 Tab Univers N ORAL 7-24 by mouth ity of 19:58: daily. [place] [address] Medical Branch loratadine Yes Take by Univ ers (CLARITIN 7-24 mouth ity of LIQUI-GEL) 19:58: daily. [place] 10 mg 14 Medical capsule Branch MULTIVITAMI Yes 1{tbl} Take 1 Tab [facility] N ORAL 7-24 by mouth ity of 19:58: daily. [place] [address] Medical Branch loratadine 0 Yes Take by Univ ers (CLARITIN 7-24 mouth ity of LIQUI-GEL) 19:58: daily. [place] 10 mg 14 Medical capsule Branch MULTIVITAMI Yes 1{tbl} Take 1 Tab Univers N ORAL 7-24 by mouth ity of 19:58: daily. [place] 14 Medical Branch loratadine 2018-0 Yes Take by [facility] ers (CLARITIN 7-24 mouth ity of LIQUI-GEL) 19:58: daily. [place] 10 mg 14 Medical capsule Branch MULTIVITAMI 2018-0 Yes 1{tbl} Take 1 Tab Univers N ORAL 7-24 by mouth ity of 19:58: daily. [place] 14 Medical Branch loratadine 2018-0 Yes Take by [facility] ers (CLARITIN 7-24 mouth ity of LIQUI-GEL) 19:58: daily. [place] 10 mg 14 Medical capsule Branch ondansetron 2018-0 Yes 4mg Take 4 mg U nivers (ZOFRAN) 4 7-24 by mouth ity o f mg tablet 15:05: every 8 [place] [address] (eight) Medical hours as Branch needed. pantoprazol 2018-0 Yes 40mg Take 40 mg Univers e 7-24 by mouth ity of (PROTONIX) 15:05: daily. [place] 40 mg EC 01 Medical tablet Branch ondansetron 2018-0 Yes 4mg Take 4 mg U nivers (ZOFRAN) 4 7-24 by mouth ity o f mg tablet 15:05: every 8 [place] [address] (eight) Medical hours as Branch needed. pantoprazol 2018-0 Yes 40mg Take 40 mg Univers e 7-24 by mouth ity of (PROTONIX) 15:05: daily. [place] 40 mg EC 01 Medical tablet Branch ondansetron 2018-0 Yes 4mg Take 4 mg U nivers (ZOFRAN) 4 7-24 by mouth ity o f mg tablet 15:05: every 8 [place] [address] (eight) Medical hours as Branch needed. pantoprazol 2018-0 Yes 40mg Take 40 mg Univers e 7-24 by mouth ity of (PROTONIX) 15:05: daily. [place] 40 mg EC 01 Medical tablet Branch ondansetron 2018-0 Yes 4mg Take 4 mg U nivers (ZOFRAN) 4 7-24 by mouth ity o f mg tablet 15:05: every 8 [place] [address] (eight) Medical hours as Branch needed. pantoprazol [...] 7-24 by mouth ity of 14:58: daily. [place] [address] Medical Branch loratadine Yes Take by Univ ers (CLARITIN 7-24 mouth ity of LIQUI-GEL) 14:58: daily. [place] 10 mg 14 Medical capsule Branch MULTIVITAMI Yes 1{tbl} Take 1 Tab Univers N ORAL 7-24 by mouth ity of 14:58: daily. [place] [address] Medical Branch loratadine Yes Take by Univ ers (CLARITIN 7-24 mouth ity of LIQUI-GEL) 14:58: daily. [place] 10 mg 14 Medical capsule Branch MULTIVITAMI Yes 1{tbl} Take 1 Tab Univers N ORAL 7-24 by mouth ity of 14:58: daily. [place] [address] Medical Branch loratadine Yes Take by Univ ers (CLARITIN 7-24 mouth ity of LIQUI-GEL) 14:58: daily. [place] 10 mg 14 Medical capsule Branch MULTIVITAMI Yes 1{tbl} Take 1 Tab Univers N ORAL 7-24 by mouth ity of 14:58: daily. [place] [address] Medical Branch loratadine Yes Take by Univ ers (CLARITIN 7-24 mouth ity of LIQUI-GEL) 14:58: daily. [place] 10 mg 14 Medical capsule Branch MULTIVITAMI Yes 1{tbl} Take 1 Tab Univers N ORAL 7-24 by mouth ity of 14:58: daily. [place] [address] Medical Branch loratadine Yes Take by Univ ers (CLARITIN 7-24 mouth ity of LIQUI-GEL) 14:58: daily. [place] 10 mg 14 Medical capsule Branch proMETHazin Yes 25mg Take 1 Univ ers e 5-04 tablet by ity of (PHENERGAN) 00:00: mouth [place] 25 mg 00 every 6 Medical tablet (six) Branch hours as needed for Nausea and Vomiting (N/V). proMETHazin 2015-2020- No 25mg Take 1 Uni vers e [...] Observation Time Observation Value Comments Source HEIGHT 2023-05-28 07:00:00 157.5 cm WEIGHT 2023-05-28 07:00:00 87.544 kg HEIGHT 2023-05-26 09:12:00 157.5 cm WEIGHT 2023-05-26 09:12:00 87.091 kg HEIGHT 2023-05-28 07:00:00 157.5 cm WEIGHT 2023-05-28 07:00:00 87.544 kg HEIGHT 2023-05-26 09:12:00 157.5 cm WEIGHT 2023-05-26 09:12:00 87.091 kg HEIGHT 2023-05-28 07:00:00 157.5 cm WEIGHT 2023-05-28 07:00:00 87.544 kg HEIGHT 2023-05-26 09:12:00 157.5 cm WEIGHT 2023-05-26 09:12:00 87.091 kg HEIGHT 2023-03-29 20:00:00 157.5 cm WEIGHT 2023-03-29 20:00:00 92.08 kg HEIGHT 2023-03-29 20:00:00 157.5 cm WEIGHT 2023-03-29 20:00:00 92.08 kg HEIGHT 2023-03-29 20:00:00 157.5 cm WEIGHT 2023-03-29 20:00:00 92.08 kg Systolic blood 2022-12-11 20:00:00 142 mm[Hg] Univer sity of pressure [place] [facility] Diastolic blood 2022-12-11 20:00:00 90 mm[Hg] Unive rsity of pressure [place] [facility] Respiratory rate 2022-12-11 20:00:00 24 /min Univ ersity of [place] [facility] Heart rate 2022-12-11 18:00:00 101 /min [facility] of [place] [facility] Oxygen saturation in 2022-12-11 18:00:00 93 /min University of Arterial blood by [facility] kwame Pulse oximetry Branch BMI 2022-12-11 13:55:00 35.43 kg/m2 [facility] [place] [facility] Body temperature 2022-12-11 13:55:00 37.22 Radha [facility] ers[facility] of [place] [facility] Body weight 2022-12-11 13:55:00 90.719 kg [facility] [place] [facility] Systolic blood 2022-11-18 05:34:00 152 mm[Hg] Univer sity of pressure [place] [facility] Diastolic blood 2022-11-18 05:34:00 98 mm[Hg] Unive rsity of pressure [place] [facility] Heart rate 2022-11-18 05:34:00 88 /min [facility] [place] [facility] Respiratory rate 2022-11-18 05:34:00 18 /min Univ ersity of [place] [facility] Oxygen saturation in 2022-11-18 05:34:00 97 /min University of Arterial blood by [facility] kwame Pulse oximetry Branch Body temperature 2022-11-17 22:28:00 37.06 Radha [facility] ers[facility] of [place] [facility] Body height 2022-11-17 22:28:00 160 cm [facility] [place] [facility] Body weight 2022-11-17 22:28:00 99.791 kg [facility] [place] [facility] BMI 2022-11-17 22:28:00 38.97 kg/m2 [facility] [place] [facility] Heart rate 2022-08-02 02:02:00 108 /min [facility] [place] [facility] Respiratory rate 2022-08-02 02:02:00 28 /min Univ ers[facility] of [place] [facility] Oxygen saturation in 2022-08-02 02:02:00 97 /min University of Arterial blood by [facility] Pulse oximetry Branch Body temperature 2022-08-02 01:00:00 36.44 Radha [facility] ers[facility] of [place] [facility] Systolic blood 2022-08-01 23:29:00 145 mm[Hg] Univer sity of pressure [place] [facility] Diastolic blood 2022-08-01 23:29:00 103 mm[Hg] Unive rsity of pressure [place] [facility] Body weight 2022-08-01 09:16:00 97.977 kg [facility] [place] [facility] BMI 2022-08-01 09:16:00 38.26 kg/m2 [facility] [place] [facility] Body height 2022-07-31 21:54:00 160 cm [facility] [place] [facility] Systolic blood 2022-05-08 16:40:00 146 mm[Hg] Univer sity of pressure [place] [facility] Diastolic blood 2022-05-08 16:40:00 96 mm[Hg] Unive rsity of pressure [place] [facility] Heart rate 2022-05-08 16:40:00 112 /min [facility] [place] [facility] Body temperature 2022-05-08 16:40:00 36.78 Radha [facility] [place] [facility] Respiratory rate 2022-05-08 16:40:00 18 /min [facility] ers[facility] of [place] [facility] Oxygen saturation in 2022-05-08 16:40:00 94 /min University of Arterial blood by [facility] Pulse oximetry Branch Body height 2022-05-05 23:44:00 160 cm [facility] [place] [facility] Body weight 2022-05-05 23:37:00 81.647 kg [facility] [place] [facility] BMI 2022-05-05 23:37:00 31.89 kg/m2 [facility] [place] [facility] Systolic blood 2022-04-15 18:52:00 104 mm[Hg] Univer sity of pressure [place] [facility] Diastolic blood 2022-04-15 18:52:00 82 mm[Hg] Unive rsity of pressure [place] [facility] Heart rate 2022-04-15 18:52:00 114 /min [facility] [place] [facility] Oxygen saturation in 2022-04-15 18:52:00 98 /min University of Arterial blood by [facility] Pulse oximetry Branch Body temperature 2022-04-15 16:14:00 36.28 Radha [facility] [place] [facility] Respiratory rate 2022-04-15 16:14:00 17 /min [facility] [place] [facility] Body height 2022-04-13 21:08:00 160 cm [facility] [place] [facility] Body weight 2022-04-13 21:08:00 91.173 kg [facility] [place] [facility] BMI 2022-04-13 21:08:00 35.61 kg/m2 [facility] [place] [facility] Systolic blood 2021-11-23 21:30:00 132 mm[Hg] Univer sity of pressure [place] [facility] Diastolic blood 2021-11-23 21:30:00 76 mm[Hg] Unive rsity of pressure [place] [facility] Heart rate 2021-11-23 21:30:00 95 /min [facility] [place] [facility] Respiratory rate 2021-11-23 21:30:00 13 /min [facility] ers[facility] [place] [facility] Oxygen saturation in 2021-11-23 21:30:00 97 /min University of Arterial blood by [facility] Pulse oximetry Branch Body temperature 2021-11-23 20:15:00 37.56 Radha [facility] [place] [facility] Systolic blood 2021-03-17 03:00:00 117 mm[Hg] Univer sity of pressure [place] [facility] Diastolic blood 2021-03-17 03:00:00 76 mm[Hg] Unive rsity of pressure [place] [facility] Heart rate 2021-03-17 03:00:00 104 /min [facility] [place] [facility] Respiratory rate 2021-03-17 03:00:00 28 /min [facility] [place] [facility] Oxygen saturation in 2021-03-17 03:00:00 96 /min University of Arterial blood by [facility] Pulse oximetry Branch Body temperature 2021-03-17 00:39:00 37.11 Radha [facility] [place] [facility] Body height 2021-03-17 00:39:00 160 cm [facility] [place] [facility] Body weight 2021-03-17 00:39:00 58.968 kg [facility] [place] [facility] BMI 2021-03-17 00:39:00 23.03 kg/m2 [facility] [place] [facility] Systolic blood 2021-03-15 00:14:00 149 mm[Hg] Univer sity of pressure [place] [facility] Diastolic blood 2021-03-15 00:14:00 78 mm[Hg] Unive rsity of pressure [place] [facility] Heart rate 2021-03-15 00:14:00 100 /min [facility] [place] [facility] Body temperature 2021-03-15 00:14:00 37.33 Radha [facility] [place] [facility] Respiratory rate 2021-03-15 00:14:00 24 /min [facility] ers[facility] [place] [facility] Body height 2021-03-15 00:14:00 160 cm [facility] [place] [facility] Body weight 2021-03-15 00:14:00 58.968 kg [facility] [place] [facility] BMI 2021-03-15 00:14:00 23.03 kg/m2 [facility] [place] [facility] Oxygen saturation in 2021-03-15 00:14:00 98 /min University of Arterial blood by [facility] Pulse oximetry Branch Systolic blood 2021-02-19 18:00:00 131 mm[Hg] Univer sity of pressure [place] [facility] Diastolic blood 2021-02-19 18:00:00 80 mm[Hg] Unive rsity of pressure [place] [facility] Heart rate 2021-02-19 18:00:00 83 /min [facility] [place] [facility] Respiratory rate 2021-02-19 18:00:00 18 /min [facility] [place] [facility] Oxygen saturation in 2021-02-19 18:00:00 100 /min University of Arterial blood by [facility] Pulse oximetry Branch Body temperature 2021-02-19 15:47:00 37 Radha [facility] [place] [facility] Body height 2021-02-19 15:47:00 160 cm [facility] [place] [facility] Body weight 2021-02-19 15:47:00 58.968 kg [facility] [place] [facility] BMI 2021-02-19 15:47:00 23.03 kg/m2 [facility] [place] [facility] Systolic blood 2023-06-04 13:02:00 93 mm[Hg] [facility] Diastolic blood 2023-06-04 13:02:00 57 mm[Hg] [facility] Heart rate 2023-06-04 13:02:00 101 /min [facility] Respiratory rate 2023-06-04 13:02:00 22 /min [facility] Oxygen saturation in 2023-06-04 13:02:00 95 /min room air [facility] Arterial blood by Medical Ce nter Pulse oximetry Body temperature 2023-06-04 11:46:00 35.28 Radha [facility] Systolic blood 2023-05-28 16:00:00 154 mm[Hg] [facility] Diastolic blood 2023-05-28 16:00:00 82 mm[Hg] [facility] Heart rate 2023-05-28 16:00:00 89 /min [facility] Body temperature 2023-05-28 16:00:00 36.67 Radha [facility] Respiratory rate 2023-05-28 16:00:00 16 /min [facility] Oxygen saturation in 2023-05-28 16:00:00 97 /min [facility] Arterial blood by Medical Ce nter Pulse oximetry Body height 2023-05-28 07:00:00 157.5 cm [facility] Body weight 2023-05-28 07:00:00 87.544 kg [facility] BMI 2023-05-28 07:00:00 35.30 kg/m2 [facility] Body height 2023-05-26 09:12:00 157.5 cm [facility] Body weight 2023-05-26 09:12:00 87.091 kg [facility] BMI 2023-05-26 09:12:00 35.12 kg/m2 [facility] Respiratory rate 2023-04-02 16:35:00 18 /min [facility] Oxygen saturation in 2023-04-02 16:35:00 98 /min [facility] Arterial blood by Medical Ce nter Pulse oximetry Systolic blood 2023-04-02 12:00:00 147 mm[Hg] [facility] Diastolic blood 2023-04-02 12:00:00 97 mm[Hg] [facility] Heart rate 2023-04-02 12:00:00 106 /min [facility] Body temperature 2023-04-02 12:00:00 36.28 Radha [facility] Body height 2023-03-30 02:14:00 157.5 cm [facility] Body weight 2023-03-30 02:14:00 92.08 kg [facility] BMI 2023-03-30 02:14:00 37.13 kg/m2 [facility] Respiratory rate 2022-08-03 14:40:00 18 /min [facility] Systolic blood 2022-08-03 12:13:00 112 mm[Hg] [facility] Diastolic blood 2022-08-03 12:13:00 77 mm[Hg] [facility] Heart rate 2022-08-03 12:13:00 115 /min [facility] Oxygen saturation in 2022-08-03 12:13:00 93 /min [facility] Arterial blood by Medical Ce nter Pulse oximetry Body temperature 2022-08-03 12:00:00 36.83 Radha [facility] Body height 2022-08-02 21:52:00 160.2 cm [facility] Body weight 2022-08-02 21:52:00 95 kg [facility] BMI 2022-08-02 21:52:00 37.02 kg/m2 [facility] BP Systolic 2022-07-24 13:31:00 136 mm[Hg] [...] Date / Time Performing Clinician Source Performed CBC W/PLT COUNT & AUTO 2023-06-[address] [facility] DIFFERENTIAL 04:41:00 [facility] BASIC METABOLIC PANEL 2023-06-[address] [facility] 04:41:00 [facility] MAGNESIUM 2023-06-[address] [facility] 04:41:00 [facility] PHOSPHORUS 2023-06-[address] [facility] 04:41:00 [facility] CBC W/PLT COUNT & AUTO 2023-06-[address] [facility] DIFFERENTIAL 04:41:00 [facility] XR SPINE LUMBAR 1 VIEW 2023-06-[address] [facility] 10:31:00 [facility] XR SPINE LUMBAR 1 VIEW 2023-06-[address] [facility] 09:46:00 [facility] LAMINECTOMY, SPINE, LUMBAR 2023-06-01 Adam Garcia [facility] 09:10:00 [facility] PROCEDURE W/ C-ARM 2023-06-[address] [facility] 09:10:00 [facility] LAMINECTOMY, SPINE, LUMBAR 2023-06-01 Adam Garcia [facility] 07:30:00 [facility] PROCEDURE W/ C-ARM 2023-06-[address] [facility] 07:30:00 [facility] SCREEN, URINE 2023-06-[address] [facility] 04:33:00 [facility] BASIC METABOLIC PANEL 2023-05-[address] [facility] 22:55:00 [facility] CBC W/PLT COUNT & AUTO 2023-05-31 Dallas Gomez [facility] DIFFERENTIAL 22:55:00 [facility] PT/APTT 2023-05-31 Dallas Gomez Rajeev [facility] 22:55:00 [facility] CBC W/PLT COUNT & AUTO 2023-05-31 Dallas Gomez [facility] DIFFERENTIAL 22:55:[address] [facility] [address] NECK SOFT TISSUE WITHOUT 2023-05-[address] [facility] IV CONTRAST 09:39:30 [facility] TYPE AND SCREEN, AUTOMATED 2023-05-[address] [facility] 09:13:00 [facility] BASIC METABOLIC PANEL 2023-05-29 Omar, Burt [facility] 06:43:00 [facility] CBC W/PLT COUNT & AUTO 2023-05-29 Omar, Burt [facility] DIFFERENTIAL 06:43:00 [facility] CBC W/PLT COUNT & AUTO 2023-05-29 Omar, Burt [facility] DIFFERENTIAL 06:43:00 [facility] XR SPINE CERVICAL 2 OR 3 2023-05-28 Omar, Burt [facility] VIEWS 18:57:00 [facility] [place] FLUORO NON-SPECIFIC UP TO 2023-05-[address] [facility] 1 HOUR 10:48:00 [facility] [place] NON-SPECIFIC UP TO 2023-05-[address] [facility] 1 HOUR 10:07:00 [facility] DISCECTOMY, SPINE, CERVICAL, 2023-05-[address] [facility] ANTERIOR APPROACH, WITH 08:15:00 [facility] FUSION INSERTION, HARDWARE, SPINAL 2023-05-[address] [facility] 08:15:00 [facility] PROCEDURE, ALLOGRAFT, FOR 2023-05-[address] [facility] SPINE SURGERY 08:15:00 [facility] AUTOGRAFT FOR SPINE SURGERY 2023-05-[address] [facility] 08:15:00 [facility] PROCEDURE W/ C-ARM 2023-05-[address] [facility] 08:15:00 [facility] NEUROPHYSIOLOGIC MONITORING, 2023-05-[address] [facility] INTRAOPERATIVE 08:15:00 [facility] PROCEDURE, USING OPERATING 2023-05-28 Adam [facility] MICROSCOPE 08:15:00 [facility] HCG, QUANTITATIVE, 2023-05-[address] [facility] 07:42:00 [facility] TYPE AND SCREEN, AUTOMATED 2023-05-[address] [facility] 07:42:00 [facility] XR CHEST 1 VIEW PORTABLE / 2023-04-[address] [facility] BEDSIDE 15:32:16 [facility] B-TYPE NATRIURETIC FACTOR 2023-04-01 Thomas Lozoya [facility] (BNP[facility] 13:32:00 [facility] ECHO W CONTRAST & DOPPLER 2023-03-31 PeteMariah chaudhary [facility] 20:18:37 [facility] MR CERVICAL SPINE WITHOUT IV 2023-03-31 JoshuaSelin Devendra mobley [facility] CONTRAST 09:25:00 [facility] CBC (HEMOGRAM ONLY) 2023-03-31 Luis Carlos Mariah [facility] 03:45:00 [facility] COMPREHENSIVE METABOLIC PANEL 2023-03-31 Mariah Aldridge [facility] 03:45:00 [facility] ARTERIAL DOPPLER LEGS 2023-03-30 Luis Carlos Mariah [facility] BILATERAL 15:45:00 [facility] ARTERIAL (ALEISHA'S W/ DOPPLER) 2023-03-30 Luis Carlos Mariah [facility] ONLY 15:44:00 [facility] ECG 12-LEAD 2023-03-30 Luis Carlos Mariah [facility] 13:06:22 [facility] ECG 12-LEAD 2023-03-30 Unknown, Hl7 Doctor [facility] 13:06:22 [facility] ECG 12-LEAD 2023-03-30 Unknown, Hl7 Doctor [facility] 13:06:22 [facility] MR THORACIC SPINE WITHOUT IV 2023-03-30 Gloria Reyes [facility] CONTRAST 12:29:58 [facility] MR LUMBAR SPINE WITHOUT IV 2023-03-30 Eric, Sumeeth [facility] CONTRAST 11:58:00 [facility] EEG AWAKE AND DROWSY 2023-03-[address] [facility] 09:57:53 [facility] VALPROIC ACID LEVEL, TOTAL 2023-03-30 Liudmila Smart [facility] 09:06:00 [facility] URINALYSIS W/ REFLEX URINE 2023-03-[address] [facility] CULTURE 03:54:00 [facility] CBC (HEMOGRAM ONLY) 2023-03-[address] [facility] 03:52:00 [facility] COMPREHENSIVE METABOLIC PANEL 2023-03-[address] [facility] 03:52:00 [facility] HEMOGLOBIN A1C 2023-03-[address] [facility] 03:52:00 [facility] PT/APTT 2023-03-[address] [facility] 03:52:00 [facility] EKG-SCANNED 2023-03-29 Provider, Default [facility] 00:00:[facility] CT HEAD WO CONTRAST 2022-12-11 Alfonso Alvarado [place] f 18:36:49 [facility] URINE DRUG (IMMUNOASSAY) - 2022-12-11 Alfonso Alvarado Unive rsity of COMPREHENSIVE DRUG SCREEN 17:13:00 [facility] URINALYSIS 2022-12-11 Alfonso Alvarado [place] of 17:13:00 [facility] CT CHEST PULMONARY ANGIOGRAM 2022-12-11 Alfonso Alvarado Uni versity of 16:26:39 [facility] MAGNESIUM 2022-12-11 Alfonso Alvarado [place] of 14:57:00 [facility] COMP. METABOLIC PANEL ([id number]) 2022-12-11 Alfonso Alvarado Un iversity of 14:57:00 [facility] D-DIMER 2022-12-11 Alfonso Alvarado [place] of 14:15:00 [facility] XR CHEST 1 VW 2022-12-11 Alfonso Alvarado [place] of 14:10:26 [facility] TROPONIN I 2022-12-11 Alfonso Alvarado [place] of 14:02:00 [facility] CBC WITH DIFF 2022-12-11 Alfonso Alvarado [place] of 14:02:00 [facility] N-TERMINAL PRO-BNP 2022-12-11 Alfonso Alvarado [place] of 14:02:00 [facility] HB ECG ROUTINE & RHYTHM STRIP 2022-12-11 Alfonso Alvarado Un iversity of 14:01:08 [facility] CONSENT/REFUSAL FOR DIAGNOSIS 2022-12-11 Doctor Unassigned, University of AND TREATMENT 13:52:01 [place] [facility] ECG 12-LEAD 2022-08-03 Unknown, Hl7 Doctor [facility] 05:03:32 [facility] ECG 12-LEAD 2022-08-03 Unknown, Hl7 Doctor [facility] 05:03:32 [facility] ECG 12-LEAD 2022-08-03 Unknown, Hl7 Doctor [facility] 05:03:32 [facility] LIPID PANEL 2022-08-[address] [facility] 21:14:00 [facility] TSH/FREE T4 IF INDICATED 2022-08-[address] [facility] 21:14:00 [facility] VITAMIN B12 2022-08-[address] [facility] 21:14:00 [facility] HEMOGLOBIN A1C 2022-08-[address] [facility] 21:14:00 [facility] COMPREHENSIVE METABOLIC PANEL 2022-08-02 [address] [facility] 21:14:00 [facility] CBC W/PLT COUNT & AUTO 2022-08-[address] [facility] DIFFERENTIAL 21:14:00 [facility] RPR 2022-08-[address] [facility] 21:14:00 [facility] HC LAB HIV-1 AG W/HIV-1&2 AB 2022-08-[address] [facility] 21:14:00 [facility] C-REACTIVE PROTEIN 2022-08-[address] [facility] 21:14:00 [facility] CBC W/PLT COUNT & AUTO 2022-08-[address] [facility] DIFFERENTIAL 21:14:00 [facility] EKG-SCANNED 2022-08-02 Provider, Eliceo [facility] 00:00:00 Scanning [facility] CT HEAD WO CONTRAST 2022-08-01 Lorenza Lowry o f 23:52:15 [facility] GALV ONLY - INFLUENZA A B RSV 2022-08-01 Letitia Chambers Un iversity of PCR 18:28:00 [facility] TRANSTHORACIC ECHO (TTE) 2022-08-01 Kylee Montez ity of COMPLETE W/ CONTRAST 14:42:00 [facility] MAGNESIUM 2022-08-01 Lorenza Lowry [place] of 10:42:00 [facility] BASIC METABOLIC PANEL (NA, K, 2022-08-01 Lorenza Lowry Un iversity of CL, CO2, GLUCOSE, BUN, 10:42:00 [facility] ical CREATININE, [place]) Branch CBC WITH DIFF 2022-08-01 LloydLorenza [place] of 10:42:00 [facility] N-TERMINAL PRO-BNP 2022-08-01 [facility] 10:42:00 [facility] POCT GLUCOSE (AUTOMATED) 2022-08-01 Lorenza Lowry [facility] ity of 06:56:00 [facility] CRITICAL CARE 2022-07-31 Sav Rondon [place] of 22:31:36 [facility] URINALYSIS 2022-07-31 Sav Rondon [place] of 20:52:00 [facility] URINE DRUG (IMMUNOASSAY) - 2022-07-31 [facility] COMPREHENSIVE DRUG SCREEN W/O 20:52:00 [place] [facility] REFLEX Branch XR CHEST 1 VW 2022-07-31 Sav Rondon of 18:45:17 [facility] LIPASE 2022-07-31 Sav Rondon [place] of 17:58:00 [facility] TROPONIN I 2022-07-31 Sav Rondon [place] of 17:58:00 [facility] COMP. METABOLIC PANEL ([id number]) 2022-07-31 Sav Rondon iversity of 17:58:00 [facility] CBC WITH DIFF 2022-07-31 Sav Rondon [place] of 17:58:00 [facility] PROTHROMBIN TIME / INR 2022-07-31 Sav Rondonit y of 17:58:00 [facility] ACTIVATED PARTIAL THRMPLAS 2022-07-31 Sav [facility] DAVID 17:58:00 [facility] N-TERMINAL PRO-BNP 2022-07-31 Sav Rondon [place] of 17:58:00 [facility] HB ECG ROUTINE & RHYTHM STRIP 2022-07-31 Sav Rondon iversity of 17:46:28 [facility] NOTICE OF PRIVACY PRACTICES 2022-07-31 Doctor Unassigned, U niversity of 17:35:38 [place] [facility] CONSENT/REFUSAL FOR DIAGNOSIS 2022-07-31 Doctor Unassigned, University of AND TREATMENT 17:35:13 [place] [facility] PHOSPHORUS 2022-05-08 [facility] 05:51:00 [facility] MAGNESIUM 2022-05-08 [facility] 05:51:00 [facility] BASIC METABOLIC PANEL (NA, K, 2022-05-08 RajatCelestino, [place] U niversity of CL, CO2, GLUCOSE, BUN, 05:51:00 [place] [facility] CREATININE, [place]) Branch CBC WITH DIFF 2022-05-08 [facility] of 05:51:00 [facility] BASIC METABOLIC PANEL (NA, K, 2022-05-07 [facility] of CL, CO2, GLUCOSE, BUN, 07:09:00 [facility] CREATININE, [place]) Branch CBC WITH DIFF 2022-05-07 [facility] of 07:09:00 [facility] POCT GLUCOSE (AUTOMATED) 2022-05-07 Brandyn Ibrahim of 01:16:00 [facility] HB ABO GROUPING 2022-05-06 [facility] of 05:07:00 [facility] BASIC METABOLIC PANEL (NA, K, 2022-05-06 RajatTirado, [place] U niversity of CL, CO2, GLUCOSE, BUN, 05:04:00 [place] [facility] ical CREATININE, [place]) Branch CBC WITH DIFF 2022-05-06 [facility] of 05:04:00 [facility] KEPPRA (LEVETIRACETAM) 2022-05-06 [facility] ty of 05:04:00 [facility] MR LUMBAR SPINE WO CONTRAST 2022-05-06 KneedlerEnder U niversity of 02:54:37 [facility] ELECTROENCEPHALOGRAM 2022-05-06 [facility] ty of 00:00:00 [facility] BASIC METABOLIC PANEL (NA, K, 2022-05-05 [facility] of CL, CO2, GLUCOSE, BUN, 07:57:00 [facility] CREATININE, CA) Branch CBC WITH DIFF 2022-05-05 [facility] of 07:57:00 [facility] PROTHROMBIN TIME / INR 2022-05-05 [facility] ersity of 07:57:00 [facility] ACTIVATED PARTIAL THRMPLAS 2022-05-05 [facility] of DAVID 07:57:00 [facility] FIBRINOGEN 2022-05-05 [facility] of 07:57:00 [facility] EMERGENCY SERVICES AGREEMENTS 2022-05-04 Doctor Unassigned, University of AND AUTHORIZATIONS 05:01:00 [place] [facility] VITAMIN D, 25-OH 2022-04-15 Sen Toledo [place] of 16:53:00 [facility] MR THORACIC SPINE WO CONTRAST 2022-04-15 Soumya Chua Un iversity of 11:56:19 [facility] MR CERVICAL SPINE WO CONTRAST 2022-04-15 Soumya Chua Un iversity of 11:20:00 [facility] BASIC METABOLIC PANEL (NA, K, 2022-04-15 Charmaine Morataya Un iversity of CL, CO2, GLUCOSE, BUN, 10:36:00 [place] [facility] CREATININE, [place]) Branch TEST, URINE 2022-04-15 [facility] of 04:39:00 [facility] URINE DRUG (IMMUNOASSAY) - 2022-04-15 [facility] COMPREHENSIVE DRUG SCREEN 04:39:00 [facility] URINALYSIS 2022-04-15 [facility] of 04:39:00 [facility] TRANSTHORACIC ECHO (TTE) 2022-04-14 [facility] ity of COMPLETE W/ CONTRAST 16:37:03 [facility] KEPPRA (LEVETIRACETAM) 2022-04-14 [facility] of 15:30:00 [facility] MAGNESIUM 2022-04-14 [facility] of 10:03:00 [facility] BASIC METABOLIC PANEL (NA, K, 2022-04-[address] [facility] Un iversity of CL, CO2, GLUCOSE, BUN, 10:03:00 [place] [facility] CREATININE, [place]) Branch MR LUMBAR SPINE WO CONTRAST 2022-04-14 Harshil [facility] ersity of 02:48:12 [facility] MR STROKE BRAIN WO CONTRAST 2022-04-14 [facility] ersity of 02:29:00 [facility] CT STROKE ANGIOGRAM HEAD 2022-04-13 Sapna Vargas [facility] ersity of 18:40:00 [facility] CT STROKE ANGIOGRAM NECK 2022-04-13 Sapna Vargas [facility] ersity of 18:40:00 [facility] CT STROKE HEAD WO CONTRAST 2022-04-13 Sapna Vargas Un iversity of 18:36:00 [facility] TROPONIN I 2022-04-13 Sapna Vargas [facility] 18:17:00 [facility] THYROID STIMULATING HORMONE 2022-04-13 Harshil [facility] ersity of 18:17:00 [facility] BASIC METABOLIC PANEL (NA, K, 2022-04-13 Sapna Vargas [place] of CL, CO2, GLUCOSE, BUN, 18:17:00 [facility] ical CREATININE, CA) Branch LIPID PANEL ([id number])(TOTAL 2022-04-13 Harshil [facility] sity of CHOLESTEROL, TRIGLYCERIDES, 18:17:00 [facility] HDL) Branch CBC WITHOUT DIFF 2022-04-13 Sapna Vargas [place] o f 18:17:00 [facility] GLYCOSYLATED HEMOGLOBIN (A1C) 2022-04-13 John Chuaena Un iversity of 18:17:00 [facility] PROTHROMBIN TIME / INR 2022-04-13 Sapna Vargas [facility] sity of 18:17:00 [facility] ACTIVATED PARTIAL THRMPLAS 2022-04-13 Sapna Vargas iversity of DAVID 18:17:00 [facility] COVID-19 (ID NOW RAPID 2022-04-13 Sapna Vargas [facility] sity of TESTING) 18:17:00 [facility] LAB ONLY COVID INTERPRETATION 2022-04-13 Sapna Vargas [facility] 18:17:00 [facility] HB ECG ROUTINE & RHYTHM STRIP 2022-04-13 Sapna Vargas [facility] 18:15:49 [facility] CONSENT/REFUSAL FOR DIAGNOSIS 2022-04-13 Doctor Unassigned, [facility] AND TREATMENT 18:05:14 [place] [facility] HOSPITAL ADMISSION 2022-04-13 Doctor Unassigned, [facility] 05:01:00 [place] [facility] SARS-COV-2 COVID-19 VACCINE 2022-02-19 Doctor Unassigned, U niversity of 12 YRS+,0.3ML,IM (PFIZER - 15:21:12 [place] [facility] URINE DRUG (IMMUNOASSAY) - 2021-11-23 [facility] U niversity of COMPREHENSIVE DRUG SCREEN W/O 21:21[place] [facility] [place] HEAD WO CONTRAST 2021-11-23 [facility] ty of 20:58:00 [facility] POCT TEST 2021-11-23 [facility] ty of 20:46:00 [facility] URINALYSIS 2021-11-23 [facility] o f 20:43:00 [facility] LIPASE 2021-11-23 [facility] o f 20:27:00 [facility] TROPONIN I 2021-11-23 [facility] o f 20:27:00 [facility] COMP. METABOLIC PANEL ([id number]) 2021-11-23 [facility] of 20:27:00 [facility] CBC WITH DIFF 2021-11-23 [facility] o f 20:27:00 [facility] POCT GLUCOSE (AUTOMATED) 2021-11-23 Doctor Unassigned, [facility] of 20:15:00 [place] [facility] SARS-COV-2 COVID-19 2021-05-24 Doctor Unassigned, Universit y of VACCINE,0.3ML,IM (PFIZER) 14:23:12 [place] [facility] SARS-COV-2 COVID-19 2021-05-03 Doctor Unassigned, Universit y of VACCINE,0.3ML,IM (PFIZER) 14:59:29 [place] [facility] EMERGENCY SERVICES AGREEMENTS 2021-04-16 Doctor Unassigned, University of AND AUTHORIZATIONS 05:01:00 [place] [facility] URINALYSIS 2021-03-17 Fabrice Chakraborty [place] of 03:09:00 [facility] XR CHEST 1 VW 2021-03-17 [facility] [place] of 01:45:07 [facility] TROPONIN I 2021-03-17 [facility] of 01:35:00 [facility] COMP. METABOLIC PANEL ([id number]) 2021-03-17 Fabrice Chakraborty Un iversity of 01:35:00 [facility] CBC WITH DIFF 2021-03-17 Fabrice Chakraborty [place] of 01:35:00 [facility] N-TERMINAL PRO-BNP 2021-03-17 Fabrice Chakraborty [place] of 01:35:00 [facility] COVID-19 (ID NOW RAPID 2021-03-17 Brian Ray [facility] y of TESTING) 00:58:00 [facility] CONSENT/REFUSAL FOR DIAGNOSIS 2021-03-17 Doctor Unassigned, [facility] AND [facility] 00:32:59 [place] [facility] COVID-19 (ID NOW RAPID 2021-02-19 Anali Monroy [facility] y of TESTING) 17:04:00 [facility] CT ABDOMEN PELVIS W CONTRAST 2021-02-19 Anali Monroy Uni versity of 16:41:18 [facility] LIPASE 2021-02-19 Anali Monroy [place] of 15:58:00 [facility] COMP. METABOLIC PANEL ([id number]) 2021-02-19 Anali Monroy Un iversity of 15:58:00 [facility] CBC WITH DIFF 2021-02-19 Anali Monroy [place] of 15:58:00 [facility] URINALYSIS 2021-02-19 Anali Monroy [place] of 15:58:00 [facility] NOTICE OF PRIVACY PRACTICES 2021-02-19 Doctor Unassjulee, U niversity of 15:30:46 [place] [facility] CONSENT/REFUSAL FOR DIAGNOSIS 2021-02-19 Doctor Unassigned, [facility] AND [facility] 15:30:30 [place] [facility] Plan of Care Planned Activity Planned Date Details Comments Source Future Scheduled 2025-08-02 Lipid panel (procedure) [facility] 00:00:00 [code = [id number]] Medical Ce nter Future Scheduled 2025-08-02 Lipid panel (procedure) [facility] 00:00:00 [code = [id number]] Medical Ce nter Future Scheduled 2025-08-02 Lipid panel (procedure) [facility] Test 00:00:00 [code = [id number]] Medical Ce nter Future Scheduled 2025-08-02 Lipid panel (procedure) [facility] Test 00:00:00 [code = [id number]] Medical Ce nter Future Scheduled 2025-08-02 Lipid panel (procedure) [facility] Test 00:00:00 [code = 66446639] Medical Ce nter Future Scheduled 2025-08-02 Lipid panel (procedure) [facility] Test 00:00:00 [code = [id number]] Medical Ce nter Future Scheduled 2025-08-02 Lipid panel (procedure) [facility] Test 00:00:00 [code = 21862924] Medical Ce nter Future Scheduled 2025-08-02 Lipid panel (procedure) [facility] Test 00:00:00 [code = 96831194] Medical Ce nter Future Scheduled 2025-08-02 Lipid panel (procedure) [facility] 00:00:00 [code = 46697743] Medical Ce nter Future Scheduled 2025-08-02 Lipid panel (procedure) [facility] 00:00:00 [code = 05792702] Medical Ce nter Future Scheduled 2025-08-02 Lipid panel (procedure) [facility] 00:00:00 [code = 32817764] Medical Ce nter Future Scheduled 2025-08-02 Lipid panel (procedure) [facility] 00:00:00 [code = 33293652] Medical Ce nter Future Scheduled 2025-08-02 Lipid panel (procedure) [facility] 00:00:00 [code = 18884567] Medical Ce nter Future Scheduled 2025-08-02 Lipid panel (procedure) [facility] 00:00:00 [code = 82660254] Medical Ce nter Future Scheduled 2025-08-02 Lipid panel (procedure) [facility] 00:00:00 [code = 61643646] Medical Ce nter Future Scheduled 2025-08-02 Lipid panel (procedure) [facility] 00:00:00 [code = 60449651] Medical Ce nter Future Scheduled 2025-08-02 Lipid panel (procedure) [facility] 00:00:00 [code = 94890053] Medical Ce nter Future Scheduled 2025-08-02 Lipid panel (procedure) [facility] 00:00:00 [code = 36550179] Medical Ce nter Future Scheduled 2025-08-02 Lipid panel (procedure) [facility] 00:00:00 [code = 71846452] Medical Ce nter Future Scheduled 2025-08-02 Lipid panel (procedure) [facility] 00:00:00 [code = 68470945] Medical Ce nter Future Scheduled 2025-08-02 Lipid panel (procedure) [facility] 00:00:00 [code = 86953565] Medical Ce nter Future Scheduled 2025-08-02 Lipid panel (procedure) [facility] 00:00:00 [code = 45283463] Medical Ce nter Future Scheduled 2025-08-02 Lipid panel (procedure) [facility] 00:00:00 [code = 62471695] Medical Ce nter Future Scheduled 2025-08-02 Lipid panel (procedure) [facility] 00:00:00 [code = 37082072] Medical Ce nter Future Scheduled 2025-08-02 Lipid panel (procedure) [facility] 00:00:00 [code = 38750092] Medical Ce nter Future Scheduled 2025-08-02 Lipid panel (procedure) [facility] 00:00:00 [code = 20222439] Medical Ce nter Future Scheduled 2025-08-02 Lipid panel (procedure) [facility] 00:00:00 [code = 31274256] Medical Ce nter Future Scheduled 2025-08-02 Lipid panel (procedure) [facility] 00:00:00 [code = 08192704] Medical Ce nter Future Scheduled 2024-05-[address] [facility] 00:00:00 Counseling and Screening Med ical Center (12+) [code = Tobacco Cessation Counseling and Screening (12+)] Future Scheduled 2024-05-[address] [facility] 00:00:00 Counseling and Screening Med ical Center (12+) [code = Tobacco Cessation Counseling and Screening (12+)] Future Scheduled 2024-05-[address] [facility] 00:00:00 Counseling and Screening Med ical Center (12+) [code = Tobacco Cessation Counseling and Screening (12+)] Future Scheduled 2024-05-[address] [facility] 00:00:00 Counseling and Screening Med ical Center (12+) [code = Tobacco Cessation Counseling and Screening (12+)] Future Scheduled 2024-05-[address] [facility] 00:00:00 Counseling and Screening Med ical Center (12+) [code = Tobacco Cessation Counseling and Screening (12+)] Future Scheduled 2023-03-20 INFLUENZA VACCINE ([facility]00 (12+) [code = DEPRESSION [facility] SCREENING (12+)] Future Scheduled 2022-06-21 COVID-19 VACCINE [...] - [facility] Pfizer series) [code = Medic al Center COVID-19 VACCINE (4 - Pfizer series)] Future Scheduled 2022-04-16 COVID-19 VACCINE (4 - [facility]00 Pfizer series) [code = Medic al Center COVID-19 VACCINE (4 - Pfizer series)] Future Scheduled 2022-04-16 COVID-19 VACCINE (4 - [facility] 00:00:00 Booster for Pfizer Medical C enter series) [code = COVID-19 VACCINE (4 - Booster for Pfizer series)] Future Scheduled 2022-04-16 COVID-19 VACCINE (4 - [facility] 00:00:00 Pfizer series) [code = Medic al Center COVID-19 VACCINE (4 - Pfizer series)] Future Scheduled 2022-03-20 INFLUENZA VACCINE [...] lung [facility] [address] (procedure) [code = [id number]] Future Scheduled 2022-01-14 SHINGLES VACCINES ([address] [facility] 00:00:00 2) [code = SHINGLES Medical Center VACCINES (1 of 2)] Future Scheduled 2022-01-14 Screening for malignant [facility] 00:00:00 neoplasm of lung [facility] [address] (procedure) [code = 519890669] Future Scheduled 2022-01-14 SHINGLES VACCINES ([address] [facility] 00:00:00 2) [code = SHINGLES Medical Center VACCINES (1 of 2)] Future Scheduled 2022-01-14 Screening for malignant [facility] 00:00:00 neoplasm of lung [facility] [address] (procedure) [code = 156974102] Future Scheduled 2022-01-14 SHINGLES VACCINES ([address] [facility] 00:00:00 2) [code = SHINGLES Medical Center VACCINES (1 of 2)] Future Scheduled 2022-01-14 Screening for malignant [facility] 00:00:00 neoplasm of lung [facility] [address] (procedure) [code = 978262361] Future Scheduled 2022-01-14 SHINGLES VACCINES ([address] [facility] 00:00:00 2) [code = SHINGLES Medical Center VACCINES (1 of 2)] Future Scheduled 2022-01-14 Screening for malignant [facility] 00:00:00 neoplasm of lung [facility] [address] [facility] (procedure) [code = 017363953] Future Scheduled 2022-01-14 SHINGLES VACCINES ([address] [facility] 00:00:00 2) [code = SHINGLES Medical Center VACCINES (1 of 2)] Future Scheduled 2022-01-14 Screening for malignant [facility] 00:00:00 neoplasm of lung [facility] [address] (procedure) [code = [id number]] Future Scheduled 2022-01-14 SHINGLES VACCINES ([address] [facility] 00:00:00 2) [code = [facility] ([facility] of 2)] Future Scheduled 2022-01-14 Screening for malignant [facility] 00:00:00 neoplasm of lung [facility] [address] [facility] (procedure) [code = [id number]] Future Scheduled 2022-01-14 SHINGLES VACCINES (1 of [...] lung [facility] [facility] (procedure) [code = [id number]] Future Scheduled 2022-01-14 SHINGLES VACCINES ([address] [facility] 00:00:00 2) [code = [facility] (1 of 2)] Future Scheduled 2022-01-14 Screening for malignant [facility] 00:00:00 neoplasm of lung [facility] [address] [facility] (procedure) [code = [id number]] Future Scheduled 2022-01-14 SHINGLES VACCINES ([address] [facility] 00:00:00 2) [code = [facility] VACCINES (1 of 2)] Future Scheduled 2022-01-14 Screening for malignant [facility] 00:00:00 neoplasm of lung [facility] [address] (procedure) [code = 325315648] Future Scheduled 2022-01-14 SHINGLES VACCINES ([address] [facility] 00:00:00 2) [code = [facility] VACCINES (1 of 2)] Future Scheduled 2022-01-14 Screening for malignant [facility] 00:00:00 neoplasm of lung [facility] [address] (procedure) [code = 283739288] Future Scheduled 2022-01-14 SHINGLES VACCINES ([address] [facility] 00:00:00 2) [code = [facility] VACCINES (1 of 2)] Future [...] cervix [facility] (procedure) [code = 188019307] Future Scheduled 1993-01-14 Screening for malignant [facility] 00:00:00 neoplasm of cervix [facility] (procedure) [code = 346399288] Future Scheduled 1993-01-14 Screening for malignant [facility] 00:00:00 neoplasm of cervix [facility] (procedure) [code = 079095265] Future Scheduled 1993-01-14 Screening for malignant [facility] 00:00:00 neoplasm of cervix [facility] (procedure) [code = 614371354] Future Scheduled 1993-01-14 Screening for malignant [facility] 00:00:00 neoplasm of cervix [facility] (procedure) [code = 396301336] Future Scheduled 1993-01-14 Screening for malignant [facility] 00:00:00 neoplasm of cervix [facility] (procedure) [code = 718248073] Future Scheduled 1993-01-14 Screening for malignant [facility] 00:00:00 neoplasm of cervix [facility] (procedure) [code = 616720536] Future Scheduled 1993-01-14 Screening for malignant [facility] 00:00:00 neoplasm of cervix [facility] (procedure) [code = 775123415] Future Scheduled 1993-01-14 Screening for malignant [facility] 00:00:00 neoplasm of cervix [facility] (procedure) [code = 730906830] Future Scheduled 1993-01-14 Screening for malignant [facility] 00:00:00 neoplasm of cervix [facility] (procedure) [code = 109739269] Future Scheduled 1993-01-14 Screening for malignant [facility] 00:00:00 neoplasm of cervix [facility] (procedure) [code = 804936771] Future Scheduled 1993-01-14 Screening for malignant [facility] 00:00:00 neoplasm of cervix [facility] (procedure) [code = 412556096] Future Scheduled 1993-01-14 Screening for malignant [facility] 00:00:00 neoplasm of cervix [facility] (procedure) [code = 278189931] Future Scheduled 1993-01-14 Screening for malignant [facility] 00:00:00 neoplasm of cervix [facility] (procedure) [code = 934591067] Future Scheduled 1993-01-14 Screening for malignant [facility] 00:00:00 neoplasm of cervix [facility] (procedure) [code = 687043228] Future Scheduled 1993-01-14 Screening for malignant [facility] 00:00:00 neoplasm of cervix [facility] (procedure) [code = 028936008] Future Scheduled 1993-01-14 Screening for malignant [facility] 00:00:00 neoplasm of cervix [facility] (procedure) [code = 869377717] Future Scheduled 1993-01-14 Screening for malignant [facility] 00:00:00 neoplasm of cervix [facility] (procedure) [code = 744759555] Future Scheduled 1993-01-14 Screening for malignant [facility] 00:00:00 neoplasm of cervix [facility] (procedure) [code = 480189963] Future Scheduled 1993-01-14 Screening for malignant [facility] 00:00:00 neoplasm of cervix [facility] (procedure) [code = 503477255] Future Scheduled 1993-01-14 Screening for malignant [facility] 00:00:00 neoplasm of cervix [facility] (procedure) [code = 202907359] Future Scheduled 1993-01-14 Screening for malignant [facility] 00:00:00 neoplasm of cervix [facility] (procedure) [code = 627341998] Future Scheduled 1993-01-14 Screening for malignant [facility] 00:00:00 neoplasm of cervix [facility] (procedure) [code = 423590211] Future Scheduled 1993-01-14 Screening for malignant [facility] 00:00:00 neoplasm of cervix [facility] (procedure) [code = 829961488] Future Scheduled 1993-01-14 Screening for malignant [facility] 00:00:00 neoplasm of cervix [facility] (procedure) [code = 702153272] Future Scheduled 1993-01-14 Screening for malignant [facility] 00:00:00 neoplasm of cervix [facility] (procedure) [code = 475924424] Future Scheduled 1993-01-14 Screening for malignant [facility] 00:00:00 neoplasm of cervix [facility] (procedure) [code = 432708770] Future Scheduled 1993-01-14 Screening for malignant [facility] 00:00:00 neoplasm of cervix [facility] (procedure) [code = 304301292] Future Scheduled 1991-01-14 DTAP/TDAP/TD VACCINES ([facility] ([facility] [code = 708490967] Future Scheduled 1987-01-[address] [facility] screening [facility] (procedure) [code = 517850499] Future Scheduled [address] [...] breast [facility] (procedure) [code = 752820524] Future Scheduled 1972 CT Colonography (combo) [facility] 00:00:00 [code = CT Colonography [facility] (combo)] Future Scheduled 1972 Screening for malignant [facility] 00:00:00 neoplasm of colon [facility] (procedure) [code = 815956958] Future Scheduled 1972 Screening for malignant [facility] 00:00:00 neoplasm of colon [facility] (procedure) [code = 221897002] Future Scheduled 1972 Screening for malignant [facility] 00:00:00 neoplasm of colon [facility] (procedure) [code = 754796343] Future Scheduled 1972 Screening for malignant [facility] 00:00:00 neoplasm of colon [facility] (procedure) [code = 011350948] Future Scheduled 1972 Sigmoidoscopy [facility]] [facility] Future Scheduled 1972 Screening for malignant [facility] 00:00:00 neoplasm of breast [facility] (procedure) [code = 216454156] Future Scheduled 1972 CT Colonography (combo) [facility] 00:00:00 [code = [facility] Future Scheduled 1972 Screening for malignant [facility] 00:00:00 neoplasm of colon [facility] (procedure) [code = 881814152] Future Scheduled 1972 Screening for malignant [facility] 00:00:00 neoplasm of colon [facility] (procedure) [code = 659194032] Future Scheduled 1972 Screening for malignant [facility] 00:00:00 neoplasm of colon [facility] (procedure) [code = 465762693] Future Scheduled 1972 Screening for malignant [facility] 00:00:00 neoplasm of colon [facility] (procedure) [code = 331266231] Future Scheduled 1972 S[facility]oidoscopy [facility]] [facility] Future Scheduled 1972 Screening for malignant [facility] 00:00:00 neoplasm of breast [facility] (procedure) [code = 881261672] Future Scheduled 1972 CT Colonography (combo) [facility] 00:00:00 [code = [facility] Future Scheduled 1972 Screening for malignant [facility] 00:00:00 neoplasm of colon [facility] (procedure) [code = 152433478] Future Scheduled 1972 Screening for malignant [facility] 00:00:00 neoplasm of colon [facility] (procedure) [code = 575358130] Future Scheduled 1972 Screening for malignant [facility] 00:00:00 neoplasm of colon [facility] (procedure) [code = 563072407] Future Scheduled 1972 Screening for malignant [facility] 00:00:00 neoplasm of colon [facility] (procedure) [code = 117971300] Future Scheduled 1972 S[facility]oidoscopy [facility]] [facility] Future Scheduled 1972 Screening for malignant [facility] 00:00:00 neoplasm of breast [facility] (procedure) [code = 875393489] Future Scheduled 1972 CT Colonography (combo) [facility] 00:00:00 [code = [facility] ([facility] Future Scheduled 1972 Screening for malignant [facility] 00:00:00 neoplasm of colon [facility] (procedure) [code = 634992045] Future Scheduled 1972 Screening for malignant [facility] 00:00:00 neoplasm of colon [facility] (procedure) [code = 444331663] Future Scheduled 1972 Screening for malignant [facility] 00:00:00 neoplasm of colon [facility] (procedure) [code = 539677850] Future Scheduled 1972 Screening for malignant [facility] 00:00:00 neoplasm of colon [facility] (procedure) [code = 810567506] Future Scheduled 1972 S[facility]oidoscopy [facility]] [facility] Future Scheduled 1972 Screening for malignant [facility] 00:00:00 neoplasm of breast [facility] (procedure) [code = 234459091] Future Scheduled 1972 CT Colonography (combo) [facility] 00:00:00 [code = [facility] ([facility] Future Scheduled 1972 Screening for malignant [facility] 00:00:00 neoplasm of colon [facility] (procedure) [code = 113643118] Future Scheduled 1972 Screening for malignant [facility] 00:00:00 neoplasm of colon [facility] (procedure) [code = 038460344] Future Scheduled 1972 Screening for malignant [facility] 00:00:00 neoplasm of colon [facility] (procedure) [code = 296893666] Future Scheduled 1972 Screening for malignant [facility] 00:00:00 neoplasm of colon [facility] (procedure) [code = 180461826] Future Scheduled 1972 S[facility]oidoscopy [facility] Future Scheduled 1972 Screening for malignant [facility] 00:00:00 neoplasm of breast [facility] (procedure) [code = 531295127] Future Scheduled 1972 CT Colonography (combo) [facility] 00:00:00 [code = [facility] Future Scheduled 1972 Screening for malignant [facility] 00:00:00 neoplasm of colon [facility] (procedure) [code = 404169231] Future Scheduled 1972 Screening for malignant [facility] 00:00:00 neoplasm of colon [facility] (procedure) [code = 059544316] Future Scheduled 1972 Screening for malignant [facility] 00:00:00 neoplasm of colon [facility] (procedure) [code = 921586376] Future Scheduled 1972 Screening for malignant [facility] 00:00:00 neoplasm of colon [facility] (procedure) [code = 532343134] Future Scheduled 1972 S[facility]oidoscopy [facility] Future Scheduled 1972 Screening for malignant [facility] 00:00:00 neoplasm of breast [facility] (procedure) [code = 727771426] Future Scheduled 1972 CT Colonography (combo) [facility] 00:00:00 [code = [facility] ([facility] Future Scheduled 1972 Screening for malignant [facility] 00:00:00 neoplasm of colon [facility] (procedure) [code = 525159846] Future Scheduled 1972 Screening for malignant [facility] 00:00:00 neoplasm of colon [facility] (procedure) [code = 863346458] Future Scheduled 1972 Screening for malignant [facility] 00:00:00 neoplasm of colon [facility] (procedure) [code = 226920744] Future Scheduled 1972 Screening for malignant [facility] 00:00:00 neoplasm of colon [facility] (procedure) [code = 127696396] Future Scheduled 1972 S[facility]oidoscopy [facility]code [facility]] [facility] Future Scheduled 1972 Screening for malignant [facility] 00:00:00 neoplasm of breast [facility] (procedure) [code = 115427912] Future Scheduled 1972 CT Colonography (combo) [facility] 00:00:00 [code = [facility] ([facility] Future Scheduled 1972 Screening for malignant [facility] 00:00:00 neoplasm of colon [facility] (procedure) [code = 140155498] Future Scheduled 1972 Screening for malignant [facility] 00:00:00 neoplasm of colon [facility] (procedure) [code = 718908560] Future Scheduled 1972 Screening for malignant [facility] 00:00:00 neoplasm of colon [facility] (procedure) [code = 911049193] Future Scheduled 1972 Screening for malignant [facility] 00:00:00 neoplasm of colon [facility] (procedure) [code = 673358777] Future Scheduled 1972 S[facility]oidoscopy [facility]] [facility] Future Scheduled 1972 Screening for malignant [facility] 00:00:00 neoplasm of breast [facility] (procedure) [code = 624057261] Future Scheduled 1972 CT Colonography (combo) [facility] 00:00:00 [code = [facility] Future Scheduled 1972 Screening for malignant [facility] 00:00:00 neoplasm of colon [facility] (procedure) [code = 041498896] Future Scheduled 1972 Screening for malignant [facility] 00:00:00 neoplasm of colon [facility] (procedure) [code = 084379670] Future Scheduled 1972 Screening for malignant [facility] 00:00:00 neoplasm of colon [facility] (procedure) [code = 413633150] Future Scheduled 1972 Screening for malignant [facility] 00:00:00 neoplasm of colon [facility] (procedure) [code = 028172094] Future Scheduled 1972 S[facility]oidoscopy [facility]code [facility]] [facility] Future Scheduled 1972 Screening for malignant [facility] 00:00:00 neoplasm of breast [facility] (procedure) [code = 053614744] Future Scheduled 1972 CT Colonography (combo) [facility] 00:00:00 [code = [facility] ([facility] Future Scheduled 1972 Screening for malignant [facility] 00:00:00 neoplasm of colon [facility] (procedure) [code = 954872380] Future Scheduled 1972 Screening for malignant [facility] 00:00:00 neoplasm of colon [facility] (procedure) [code = 241760938] Future Scheduled 1972 Screening for malignant [facility] 00:00:00 neoplasm of colon [facility] (procedure) [code = 387196243] Future Scheduled 1972 Screening for malignant [facility] 00:00:00 neoplasm of colon [facility] (procedure) [code = 955265227] Future Scheduled 1972 S[facility]oidoscopy [facility]code [facility] 1972 Screening for malignant [facility] 00:00:00 neoplasm of breast [facility] (procedure) [code = 436684313] Future Scheduled 1972 CT Colonography (combo) [facility] 00:00:00 [code = [facility] ([facility] Future Scheduled 1972 Screening for malignant [facility] 00:00:00 neoplasm of colon [facility] (procedure) [code = 539617461] Future Scheduled 1972 Screening for malignant [facility] 00:00:00 neoplasm of colon [facility] (procedure) [code = 620197498] Future Scheduled 1972 Screening for malignant [facility] 00:00:00 neoplasm of colon [facility] (procedure) [code = 184437817] Future Scheduled 1972 Screening for malignant [facility] 00:00:00 neoplasm of colon [facility] (procedure) [code = 813455714] Future Scheduled 1972 S[facility]oidoscopy [facility]code [facility] Future Scheduled 1972 Screening for malignant [facility] 00:00:00 neoplasm of breast [facility] (procedure) [code = 958439827] Future Scheduled 1972 CT Colonography (combo) [facility] 00:00:00 [code = [facility] ([facility] Future Scheduled 1972 Screening for malignant [facility] 00:00:00 neoplasm of colon [facility] (procedure) [code = 458155380] Future Scheduled 1972 Screening for malignant [facility] 00:00:00 neoplasm of colon [facility] (procedure) [code = 909748363] Future Scheduled 1972 Screening for malignant [facility] 00:00:00 neoplasm of colon [facility] (procedure) [code = 685856625] Future Scheduled 1972 Screening for malignant [facility] 00:00:00 neoplasm of colon [facility] (procedure) [code = 726576922] Future Scheduled 1972 S[facility]oidoscopy [facility]] [facility] Future Scheduled 1972 Screening for malignant [facility] 00:00:00 neoplasm of breast [facility] (procedure) [code = 043045427] Future Scheduled 1972 CT Colonography (combo) [facility] 00:00:00 [code = [facility] ([facility])] Future Scheduled 1972 Screening for malignant [facility] 00:00:00 neoplasm of colon [facility] (procedure) [code = 843902284] Future Scheduled 1972 Screening for malignant [facility] 00:00:00 neoplasm of colon [facility] (procedure) [code = 612386991] Future Scheduled 1972 Screening for malignant [facility] 00:00:00 neoplasm of colon [facility] (procedure) [code = 144706277] Future Scheduled 1972 Screening for malignant [facility] 00:00:00 neoplasm of colon [facility] (procedure) [code = 172616826] Future Scheduled 1972 S[facility]oidoscopy [facility]code [facility]] [facility] Future Scheduled 1972 Screening for malignant [facility] 00:00:00 neoplasm of breast [facility] (procedure) [code = 862897142] Future Scheduled 1972 CT Colonography (combo) [facility] 00:00:00 [code = [facility] ([facility] Future Scheduled 1972 Screening for malignant [facility] 00:00:00 neoplasm of colon [facility] (procedure) [code = 040812505] Future Scheduled 1972 Screening for malignant [facility] 00:00:00 neoplasm of colon [facility] (procedure) [code = 472135353] Future Scheduled 1972 Screening for malignant [facility] 00:00:00 neoplasm of colon [facility] (procedure) [code = 789322575] Future Scheduled 1972 Screening for malignant [facility] 00:00:00 neoplasm of colon [facility] (procedure) [code = 163063385] Future Scheduled 1972 S[facility]oidoscopy [facility]code [facility]] [facility] Future Scheduled 1972 Screening for malignant [facility] 00:00:00 neoplasm of breast [facility] (procedure) [code = 390593457] Future Scheduled 1972 CT Colonography (combo) [facility] 00:00:00 [code = [facility] ([facility] Future Scheduled 1972 Screening for malignant [facility] 00:00:00 neoplasm of colon [facility] (procedure) [code = 869510086] Future Scheduled 1972 Screening for malignant [facility] 00:00:00 neoplasm of colon [facility] (procedure) [code = 576054037] Future Scheduled 1972 Screening for malignant [facility] 00:00:00 neoplasm of colon [facility] (procedure) [code = 215693826] Future Scheduled 1972 Screening for malignant [facility] 00:00:00 neoplasm of colon [facility] (procedure) [code = 446170316] Future Scheduled 1972 [facility]oidoscopy [facility]] [facility] Future Scheduled 1972 Screening for malignant [facility] 00:00:00 neoplasm of breast [facility] (procedure) [code = 083786177] Future Scheduled 1972 CT Colonography (combo) [facility] 00:00:00 [code = [facility] ([facility] Future Scheduled 1972 Screening for malignant [facility] 00:00:00 neoplasm of colon [facility] (procedure) [code = 908154832] Future Scheduled 1972 Screening for malignant [facility] 00:00:00 neoplasm of colon [facility] (procedure) [code = 715011862] Future Scheduled 1972 Screening for malignant [facility] 00:00:00 neoplasm of colon [facility] (procedure) [code = 490289664] Future Scheduled 1972 Screening for malignant [facility] 00:00:00 neoplasm of colon [facility] (procedure) [code = 365700084] Future Scheduled 1972 S[facility]oidoscopy [facility]] [facility] Future Scheduled 1972 Screening for malignant [facility] 00:00:00 neoplasm of breast [facility] (procedure) [code = 610264663] Future Scheduled 1972 CT Colonography (combo) [facility] 00:00:00 [code = [facility] ([facility] Future Scheduled 1972 Screening for malignant [facility] 00:00:00 neoplasm of colon [facility] (procedure) [code = 134176893] Future Scheduled 1972 Screening for malignant [facility] 00:00:00 neoplasm of colon [facility] (procedure) [code = 697740834] Future Scheduled 1972 Screening for malignant [facility] 00:00:00 neoplasm of colon [facility] (procedure) [code = 659539514] Future Scheduled 1972 Screening for malignant [facility] 00:00:00 neoplasm of colon [facility] (procedure) [code = 824948361] Future Scheduled 1972 S[facility]oidoscopy [facility] Future Scheduled 1972 Screening for malignant [facility] 00:00:00 neoplasm of breast [facility] (procedure) [code = 687894410] Future Scheduled 1972 CT Colonography (combo) [facility] 00[facility]00:00 [code = [facility] ([facility] Future Scheduled 1972 Screening for malignant [facility] 00:00:00 neoplasm of colon [facility] (procedure) [code = 204434556] Future Scheduled 1972 Screening for malignant [facility] 00:00:00 neoplasm of colon [facility] (procedure) [code = 804925974] Future Scheduled 1972 Screening for malignant [facility] 00:00:00 neoplasm of colon [facility] (procedure) [code = 644672118] Future Scheduled 1972 Screening for malignant [facility] 00:00:00 neoplasm of colon [facility] (procedure) [code = 113417435] Future Scheduled 1972 S[facility]oidoscopy [facility] Future Scheduled 1972 Screening for malignant [facility] 00:00:00 neoplasm of breast [facility] (procedure) [code = 546440913] Future Scheduled 1972 CT Colonography (combo) [facility] 00:00:00 [code = [facility] ([facility] Future Scheduled 1972 Screening for malignant [facility] 00:00:00 neoplasm of colon [facility] (procedure) [code = 869336359] Future Scheduled 1972 Screening for malignant [facility] 00:00:00 neoplasm of colon [facility] (procedure) [code = 876907188] Future Scheduled 1972 Screening for malignant [facility] 00:00:00 neoplasm of colon [facility] (procedure) [code = 034783259] Future Scheduled 1972 Screening for malignant [facility] 00:00:00 neoplasm of colon [facility] (procedure) [code = 430980298] Future Scheduled 1972 S[facility]oidoscopy [facility] Future Scheduled 1972 Screening for malignant [facility] 00:00:00 neoplasm of breast [facility] (procedure) [code = 935359500] Future Scheduled 1972 CT Colonography (combo) [facility] 00:00:00 [code = [facility] ([facility] Future Scheduled 1972 Screening for malignant [facility] 00:00:00 neoplasm of colon [facility] (procedure) [code = 987560521] Future Scheduled 1972 Screening for malignant [facility] 00:00:00 neoplasm of colon [facility] (procedure) [code = 735851281] Future Scheduled 1972 Screening for malignant [facility] 00:00:00 neoplasm of colon [facility] (procedure) [code = 987008494] Future Scheduled 1972 Screening for malignant [facility] 00:00:00 neoplasm of colon [facility] (procedure) [code = 401490795] Future Scheduled 1972 [facility]oscopy [facility] 00:00:00 Sigmoidoscopy] Medical Cent[facility] r Future Scheduled 1972 Screening for malignant [facility] 00:00:00 neoplasm of breast Medical C enter (procedure) [code = 230028807] Future Scheduled 1972 CT Colonography (combo) [facility] 00:00:00 [code = CT Colonography [facility] (combo)] Future Scheduled 1972 Screening for malignant [facility] 00:00:00 neoplasm of colon Medical Ce nter (procedure) [code = 174296782] Future Scheduled 1972 Screening for malignant [facility] 00:00:00 neoplasm of colon Medical Ce nter (procedure) [code = 260278365] Future Scheduled 1972 Screening for malignant [facility] 00:00:00 neoplasm of colon Medical Ce nter (procedure) [code = 806214096] Future Scheduled 1972 Screening for malignant [facility] 00:00:00 neoplasm of colon Medical Ce nter (procedure) [code = 204916734] Future Scheduled 1972 Sigmoidoscopy [facility]code = [facility] Medical Cente r Future Scheduled 1972 Screening for malignant [facility] 00:00:00 neoplasm of breast Medical C enter (procedure) [code = 179153305] Future Scheduled 1972 CT Colonography (combo) [facility] 00:00:00 [code = CT Colonography Medi [facility] (combo)] Future Scheduled 1972 Screening for malignant [facility] 00:00:00 neoplasm of colon Medical Ce nter (procedure) [code = 280493932] Future Scheduled 1972 Screening for malignant [facility] 00:00:00 neoplasm of colon Medical Ce nter (procedure) [code = 692681612] Future Scheduled 1972 Screening for malignant [facility] 00:00:00 neoplasm of colon Medical Ce nter (procedure) [code = 387260769] Future Scheduled 1972 Screening for malignant [facility] 00:00:00 neoplasm of colon Medical Ce nter (procedure) [code = 369210748] Future Scheduled 1972 Sigmoidoscopy [code = [facility] S[facility]oscopy] Medical Cente r Future Scheduled 1972 Screening for malignant [facility] 00:00:00 neoplasm of breast Medical C enter (procedure) [code = 034800309] Future Scheduled 1972 CT Colonography (combo) [facility] 00:00:00 [code = CT Colonography Medi [facility] (combo)] Future Scheduled 1972 Screening for malignant [facility] 00:00:00 neoplasm of colon Medical Ce nter (procedure) [code = 504374287] Future Scheduled 1972 Screening for malignant [facility] 00:00:00 neoplasm of colon Medical Ce nter (procedure) [code = 531758165] Future Scheduled 1972 Screening for malignant [facility] 00:00:00 neoplasm of colon Medical Ce nter (procedure) [code = 954581017] Future Scheduled 1972 Screening for malignant [facility] 00:00:00 neoplasm of colon Medical Ce nter (procedure) [code = 273386383] Future Scheduled 1972 Sigmoidoscopy [code = [facility]oscopy] Medical Cente r Future Scheduled 1972 Screening for malignant [facility] 00:00:00 neoplasm of breast Medical C enter (procedure) [code = 093276218] Future Scheduled 1972 CT Colonography (combo) [facility] 00:00:00 [code = CT Colonography [facility] (combo)] Future Scheduled 1972 Screening for malignant [facility] 00:00:00 neoplasm of colon Medical Ce nter (procedure) [code = 511744025] Future Scheduled 1972 Screening for malignant [facility] 00:00:00 neoplasm of colon Medical Ce nter (procedure) [code = 057690756] Future Scheduled 1972 Screening for malignant [facility] 00:00:00 neoplasm of colon Medical Ce nter (procedure) [code = 089954250] Future Scheduled 1972 Screening for malignant [facility] 00:00:00 neoplasm of colon Medical Ce nter (procedure) [code = 452256164] Future Scheduled 1972 Sigmoidoscopy [code = [facility] S[facility]oscopy] Medical Cente r Future Scheduled 1972 Screening for malignant [facility] 00:00:00 neoplasm of breast Medical C enter (procedure) [code = 128840575] Future Scheduled 1972 CT Colonography (combo) [facility] 00:00:00 [code = CT Colonography [facility] (combo)] Future Scheduled 1972 Screening for malignant [facility] 00:00:00 neoplasm of colon Medical Ce nter (procedure) [code = 638634016] Future Scheduled 1972 Screening for malignant [facility] 00:00:00 neoplasm of colon Medical Ce nter (procedure) [code = 551248872] Future Scheduled 1972 Screening for malignant [facility] 00:00:00 neoplasm of colon Medical Ce nter (procedure) [code = 899310849] Future Scheduled 1972 Screening for malignant [facility] 00:00:00 neoplasm of colon Medical Ce nter (procedure) [code = 455036012] Future Scheduled 1972 Sigmoidoscopy [code = [facility] S[facility]oscopy] Medical Cente r Future Scheduled 1972 Screening for malignant [facility] 00:00:00 neoplasm of breast Medical C enter (procedure) [code = 218485981] Future Scheduled 1972 CT Colonography (combo) [facility] 00:00:00 [code = CT Colonography [facility] (combo)] Future Scheduled 1972 Screening for malignant [facility] 00:00:00 neoplasm of colon Medical Ce nter (procedure) [code = 848589621] Future Scheduled 1972 Screening for malignant [facility] 00:00:00 neoplasm of colon Medical Ce nter (procedure) [code = 430628831] Future Scheduled 1972 Screening for malignant [facility] 00:00:00 neoplasm of colon Medical Ce nter (procedure) [code = 022684000] Future Scheduled 1972 Screening for malignant [facility] 00:00:00 neoplasm of colon Medical Ce nter (procedure) [code = 099001136] Future Scheduled 1972 Sigmoidoscopy [code = [facility]oscopy] Medical Cente r Future Scheduled 1972 Screening for malignant [facility] 00:00:00 neoplasm of breast Medical C enter (procedure) [code = 538450191] Future Scheduled 1972 CT Colonography (combo) [facility] 00:00:00 [code = CT [facility] (com[facility])] Future Scheduled 1972 Screening for malignant [facility] 00:00:00 neoplasm of colon Medical Ce nter (procedure) [code = 822129486] Future Scheduled 1972 Screening for malignant [facility] 00:00:00 neoplasm of colon Medical Ce nter (procedure) [code = 593952021] Future Scheduled 1972 Screening for malignant [facility] 00:00:00 neoplasm of colon Medical Ce nter (procedure) [code = 298344464] Future Scheduled 1972 Screening for malignant [facility] 00:00:00 neoplasm of colon Medical Ce nter (procedure) [code = 623116340] Future Scheduled 1972 Sigmoidoscopy [code = [facility]oscopy] Medical Cente r Future Scheduled 1972 Screening for malignant [facility] 00:00:00 neoplasm of breast Medical C enter (procedure) [code = 615390333] Future Scheduled 1972 CT Colonography (combo) [facility] 00:00:00 [code = CT Colonography [facility] (combo)] Future Scheduled 1972 Screening for malignant [facility] 00:00:00 neoplasm of colon Medical Ce nter (procedure) [code = 335500304] Future Scheduled 1972 Screening for malignant [facility] 00:00:00 neoplasm of colon Medical Ce nter (procedure) [code = 677222280] Future Scheduled 1972 Screening for malignant [facility] 00:00:00 neoplasm of colon Medical Ce nter (procedure) [code = 867743250] Future Scheduled 1972 Screening for malignant [facility] 00:00:00 neoplasm of colon Medical Ce nter (procedure) [code = 363475845] Future Scheduled 1972 Sigmoidoscopy [code = [facility] S[facility]oscopy] Medical Cente r Goal Plan of Care Note [code = 59539-3] Goal Plan of Care Note [code = 78247-7] Goal Plan of Care Note [code = 10480-3] Goal Plan of Care Note [code = 88722-1] Goal Plan of Care Note [code = 01276-5] Goal Plan of Care Note [code = 29076-2] Goal Plan of Care Note [code = 43556-0] Goal Plan of Care Note [code = 81924-7] Goal Plan of Care Note [code = 74795-1] Goal Plan of Care Note [code = 61799-8] Goal Plan of Care Note [code = 93660-8] Goal Plan of Care Note [code = 40536-9] Goal Plan of Care Note [code = 71522-5] Goal Plan of Care Note [code = 69149-3] Goal Plan of Care Note [code = 00070-2] Goal Plan of Care Note [code = 46051-4] Goal Plan of Care Note [code = 30227-7] Goal Plan of Care Note [code = 06354-9] Goal Plan of Care Note [code = 04108-3] Goal Plan of Care Note [code = 00702-3] Goal Plan of Care Note [code = 36082-0] Goal Plan of Care Note [code = 88361-8] Goal Plan of Care Note [code = 66633-5] Goal Plan of Care Note [code = 48626-6] Goal Plan of Care Note [code = 14115-9] Goal Plan of Care Note [code = 10962-5] Goal Plan of Care Note [code = 07623-6] Goal Plan of Care Note [code = 19217-1] Goal Plan of Care Note [code = 42303-3] Goal Plan of Care Note [code = 43119-3] Goal Plan of Care Note [code = 73129-2] Goal Plan of Care Note [code = 36991-5] Goal Plan of Care Note [code = 61398-2] Goal Plan of Care Note [code = 79682-7] Goal Plan of Care Note [code = 97910-7] Encounters Start End Encounter Admission Attending Care Care Encounter Source Date/Time Date/Time Type Type Clinicians Facility Department ID 2023-05-08 Outpatient NICOLETTE ADAM GARCIA [facility] Surgery [id number] [facility] 11:21:00 2023-04-01 Inpatient ER [facility] [id number] [facility] 14:26:29 MRINALINI 2023-03-31 Inpatient ER DEISI ALDRIDGE [facility] [id number] [facility] 09:24:52 MARIAH 2021-05-[address] [facility] [id number] Univers 18:48:04 ity [facility] 2021-05-[address] [facility] [id number] Univers 12:43:40 [facility] 2023-05-28 2023-06-04 Inpatient ADAM BRANTLEY [facility] Surgery [id number] SLE 06:45:00 17:36:00 2023-05-28 2023-06-04 [facility] Adam Garcia [facility] [id number] [id number] 06:45:00 17:36:00 Encounter [facility] 2023-05-28 2023-06-04 [facility] Adam Brantley [facility] [id number] [id number] 06:45:00 17:36:00 Encounter [facility] 2023-06-01 2023-06-01 [facility] [id number] 09:10:00 13:00:[address] [facility] 2023-06-01 2023-06-01 [facility] [id number] 09:10:00 13:00:00 Event Rocael Antwon [facility] 2023-06-01 2023-06-01 Surgery Adam Garcia [facility] [id number] 09:00:00 11:30:00 [facility] 2023-06-01 2023-06-01 Surgery Adam Garcia [facility] [id number] 09:00:00 11:30:00 [facility] 2023-06-01 2023-06-01 Outpatient ADAM BRANTLEY [facility] [id number] SLE 09:47:57 09:47:57 2023-06-01 2023-06-01 Outpatient AADM BRANTLEY [facility] [id number] SLE[facility] 09:40:34 09:40:34 2023-05-31 2023-05-31 Inpatient ADAM BRANTLEY [facility] [id number] SLE[facility] 09:25:55 23:59:00 2023-05-31 2023-05-31 [facility] Adam Garcia [facility] [id number] [id number] 09:00:00 23:59:00 Encounter [facility] 2023-05-31 2023-05-31 [facility] Adam Garcia [facility] [id number] [id number] 09:00:00 23:59:00 Encounter [facility] 2023-05-28 2023-05-28 Outpatient ADAM BRANTLEY [facility] [id number] SLE 18:15:29 18:15:29 2023-05-28 2023-05-28 Anesthesia Ramya, [facility] [id number] 08:30:00 11:54:00 Event [facility] 2023-05-28 2023-05-28 Anesthesia Ramya, [facility] [id number] 08:30:00 11:54:00 Event [facility] 2023-05-28 2023-05-28 Outpatient ADAM BRANTLEY [facility] [id number] SLE 11:41:14 11:41:14 2023-05-28 2023-05-28 Surgery Adam Garcia [facility] [id number] 08:30:00 11:00:00 [facility] 2023-05-28 2023-05-28 Surgery Adam Garcia [facility] [id number] 08:30:00 11:00:00 [facility] 2023-05-28 2023-05-28 Outpatient ADAM BRANTLEY [facility] [id number] SLE 10:00:47 10:00:47 2023-05-28 2023-05-28 Travel [facility] [id number] [facility] 00:[facility]00 00:00:00 [facility] 2023-05-28 2023-05-28 Travel [facility] [id number] [facility] 00:00:00 00:00:00 [facility] 2023-05-26 2023-05-26 [facility] Adam Garcia [facility] [id number] [id number] 09:00:00 09:00:00 Encounter [facility] 2023-05-26 2023-05-26 [facility] [id number] [id number] 09:00:00 09:00:00 Encounter [facility] 2023-05-26 2023-05-26 Outpatient ADAM BRANTLEY [facility] [id number] [facility] 00:00:00 00:00:00 2023-05-26 2023-05-26 Outpatient SLE SLE [id number] [facility] 00:00:00 00:00:00 2023-05-26 2023-05-26 Travel [facility] [id number] [facility] 00:[facility]00 00:00:00 [facility] 2023-05-26 2023-05-26 Travel [facility] [id number] [facility] 00:00:00 00:00:00 [facility] 2023-05-13 2023-05-13 Outpatient SFA SFA [id number] Adria 11:43:03 11:43:03 1025 F Mauricio 2023-05-12 2023-05-12 [facility] Adam Garcia [facility] [id number] 00:00:00 00:00:00 Only [facility] 2023-05-12 2023-05-12 [facility] [id number] 00:00:00 00:00:00 Only [facility] 2023-05-08 2023-05-08 Outpatient SFA SFA [id number] Adria 14:11:21 14:11:21 1020 F Mauricio 2023-03-29 2023-04-02 [facility] Connie Davey [facility] [id number] 19:25:00 20:48:00 Encounter Mariah Aldridge, [facility] 2023-03-29 2023-04-02 [id number] [facility] 19:25:00 20:48:00 [facility] 2023-03-29 2023-04-02 [facility] [id number] 19:25:00 20:48:[address] [facility] Devora, [facility] 2023-03-31 2023-03-31 Inpatient ER LUIS CARLOS SLE SLE [id number] SLEH 08:32:56 00:00:00 [facility] 2023-03-30 2023-03-30 Outpatient ER WAI, SLEH SLEH [id number] [facility] 10:24:12 23:59:00 [facility] 2023-03-30 2023-03-30 [facility] [id number] 09:40:00 23:59:00 Encounter [facility] 2023-03-30 2023-03-30 [facility], [facility] [id number] 09:40:00 23:59:00 Encounter [facility] 2023-03-30 2023-03-30 Outpatient ER LUIS CARLOS SLEH SLEH [id number] [facility]H 13:46:20 13:46:20 [facility] 2023-03-30 2023-03-30 Outpatient ER LUIS CARLOS SLEH SLEH [id number] SLEH 13:46:14 13:46:14 [facility] 2023-03-30 2023-03-30 [facility] [id number] [facility] 10:24:04 10:24:04 [facility] 2023-03-30 2023-03-30 Orders [facility] [id number] 00:00:00 00:00:00 Only [facility] 2023-03-30 2023-03-30 Travel [facility] [id number] [facility] 00:00:00 00:00:00 [facility] 2023-03-30 2023-03-30 Orders [facility] [id number] 00:00:00 00:00:00 Only [facility] 2023-03-30 2023-03-30 Travel [facility] [id number] [facility] 00:00:00 00:00:00 [facility] 2022-12-11 2022-12-11 Emergency X JENNY, K [facility] ERT [id number] Univers 08:56:00 15:29:00 ity [facility] 2022-12-11 2022-12-11 Emergency Jenny, K [facility] 1.2.840.114 [id number] Univers 08:56:00 15:29:00 Lorelei HERNANDEZ 350.1.13.10 i [place] [id number] [place] [id number] Branch 2022-11-17 2022-11-18 Emergency X BRIANA, [facility] ERT [id number] Univers 17:25:00 01:19:00 RITCHIE itshawn of [facility] 2022-11-17 2022-11-18 Emergency Briana, [facility] 1.2.439.241 [id number] Univers 17:25:00 01:19:00 Ritchie Herbie HERNANDEZ 350.1.13.10 [place] [id number] [facility] 084 Branch 2022-08-28 2022-08-28 Patient Shy BeckmanCorbin 1.2.840.114 [id number] Univers 00:00:00 00:00:00 Outreach E W[place]ACE 350.1.13.10 [place] [id number] [facility] 403 [address] 2022-08-20 2022-08-20 Patient Shy BeckmanCorbin 1.2.840.114 [id number] Univers 00:00:00 00:00:00 Outreach E [place] 350.1.13.10 [place] [id number] [facility] 403 [address] 2022-08-022022-08-03 [facility] Halima Mendoza [facility] [id number] 17:30:00 14:29:00 Encounter MaikedmarJen Ne Timmons [facility] 2022-08-02 2022-08-03 Outpatient ER [facility] Neurology [id number] SLE 17:30:00 14:29:00 [facility] 2022-08-02 2022-08-03 [facility] Halima Mendoza [facility] [id number] 17:30:00 14:29:00 Encounter Jen Geller dominic [facility] 2022-08-03 2022-08-03 Orders [facility] [id number] 00:00:00 00:00:00 Only [facility] 2022-08-03 2022-08-03 Orders [facility] [id number] 00:00:00 00:00:00 Only [facility] 2022-08-02 2022-08-02 Travel [facility] [id number] [facility] 00:00:00 00:00:00 [facility] 2022-08-02 2022-08-02 Travel [facility] [id number] [facility] 00:00:00 00:00:00 [facility] 2022-07-31 2022-08-01 Inpatient X ARDEN PAKEVIN [facility] [id number] Univers 11:42:00 21:48:00 LORENZA itshawn [facility] 2022-07-31 2022-08-01 Hospital Sav Rondon [facility] 1.2.840.1 14 [id number] Univers 11:42:00 21:48:00 Encounter Lorenza Lowry 350.1.13.10 reinaldo [facility] 4.2.7.2.686 [facility] [id number] [place] [address] Branch 2022-08-01 2022-08-01 Transition BLAYNE Nicole 1.2.840.114 [id number] Univers 00:00:00 00:00:00 of Care Maria Teresa [place] 350.1.13.10 ity [facility] [place] [id number] [facility] 403 [address] 2022-07-28 2022-07-28 Outpatient SFA [facility] [id number] Adria 14:41:38 14:41:38 0109 [place] 2022-07-28 2022-07-28 Outpatient [id number]- [id number] 3d [id number] 00:00:00 00:00:00 Visit [id number] 2022-07-24 2022-07-24 Outpatient SFA [facility] [id number] Adria 13:24:40 13:24:40 0105 F [place] 2022-05-23 2022-05-23 Outpatient SFA [facility] [id number] Adria 14:51:01 14:51:01 1104 F [place] 2022-05-23 2022-05-23 Outpatient [id number]- [id number] [id number]-f 00:00:00 00:00:00 Visit [id number] -[id number] [id number] 7850ee 2022-05-04 2022-05-08 Outpatient X CHANTEL MATTHEWS [facility] [place] [id number] Univers 20:22:00 14:44:00 CHANTEL MATTHEWS [facility] 2022-05-04 2022-05-08 Emergency BrinerBrandyn 1.2.840.1 14 [id number] Univers 20:22:00 14:44:00 Chantel Matthews 350.1.13 .10 ity [facility] 4.2.7.2.686 Javier as [phone] [facility] 098 Branch 2022-04-13 2022-04-15 Inpatient X CONRAD [facility] BERNARDINO [id number] Univers 13:06:00 15:00:00 SELINA ity [facility] 2022-04-13 2022-04-15 [facility] Sam Sapna Freya TANNER 1.2.84 0.114 [id number] Univers 13:06:00 15:00:00 Encounter Glory Sarah HOSEA 350. 1.13.10 ity of [facility] 4.2.7.2.686 [place] [id number] [facility] 098 [address] 2022-02-19 2022-02-19 Imm/Inj Vaccine, [facility] [place] 1.2.840.114 [id number] Univers 10:20:00 10:30:00 Visit Jose Pak 350.1.13.10 ity of PEDIATRIC 4.2.7.2.686 [facility] [id number] [facility] 225 [address] 2022-02-19 2022-02-[address] [facility] [id number] Univers 10:20:00 10:20:00 ity of [facility] 2021-11-23 2021-11-23 Emergency X ESTEFANY [facility] ERT [id number] Univers 15:07:00 17:03:00 CAILINO ity of [facility] 2021-11-23 2021-11-23 Emergency Sav Rondon [facility] 1.2.840. 114 [id number] Univers 15:07:00 17:03:00 Nichelle Virk 350.1.13. 10 ity of [place] 4.2.7.2.686 [facility] [id number] [facility] 084 [address] 2021-11-21 2021-11-[address] [facility] [id number] Univers 09:40:00 09:40:00 ity of [facility] 2021-05-24 2021-05-24 [address] PAK [facility] [id number] Univers 09:30:00 09:30:00 ity of [facility] 2021-05-24 2021-05-24 Imm/Inj Vaccine, [facility] [place] 1.2.840.114 [id number] Univers 08:47:51 08:57:51 Visit Jose Pak 350.1.13.10 [place] [facility] [id number] [facility] [address] 2021-05-03 2021-05-[address] [facility] [id number] Univers 09:40:00 09:59:35 ity of [facility] 2021-05-03 2021-05-03 Imm/Inj Vaccine, Chung Pierson [facility] [place] 1.2.840.114 [id number] Univers 09:17:43 09:59:35 Visit Jose Pak 350.1.13.10 [place] [facility] [phone] [facility] [address] 2021-04-16 2021-04-16 Orders Doctor EWELINA 1.2.840.114 [id number] Univers 00:00:00 00:00:00 Only Unassigned, HOSEA 350.1.13.10 ity of [place] [facility] 4.2.7.2.686 Javier as [phone] [facility] 009 Branch 2021-03-17 2021-03-17 Telephone EWELINA Nava 1.2.295.694 [id number] Univers 00:00:00 00:00:00 Aneatrice HOSEA 350.1.13.10 ity of [facility] 4.2.7.2.686 Javier as [phone] [facility] 019 Branch 2021-03-16 2021-03-16 [facility] 1.2.840.114 [id number] Univers 20:08:00 23:24:00 Shinta Julio Cesar 350.1.13.10 [place] [id number] [facility] 0[address] Branch 2021-03-14 2021-03-14 Urgent Lydia Desouza [facility] 1.2.840.114 [id number] Univers 18:59:34 20:19:13 Care Unknown, Attending Health 350.1.13.10 ity of [place] 4.2.7.2.686 Javier as Prem?Blea [phone] Ma damon dahl [address] [place] [address] Medical Office Building 2021-03-14 2021-03-14 Outpatient R UNKNOWN, [facility] [id number] Univers 19:00:00 19:00:00 ATTENDING ity of [facility] 2021-02-19 2021-02-19 Emergency Eliana [facility] 1.2.466.405 [id number] Univers 10:49:00 14:48:00 Anali Hernandez 350.1.13.10 i ty [facility] [place] [id number] [address] 2019-03-09 2019-03-09 [facility] [id number] 00:00:00 00:00:00 Yehuda Hernandez [id number] [place] [id number] Professio [phone] [address] 2019-03-09 2019-03-09 Dick [facility] [id number] Univers 00:00:00 00:00:00 Yehuda Hernandez [id number] ity [facility] [id number] [place] [facility] [phone] Ma dical [address] Results Test Description Test Time Test Comments Results Result Comments Source MAGNESIUM 2023-06-02 05:26:09 Test Item Value Reference Range Interpretation Comme nts MAGNESIUM (BEAKER) (test code = 627) 2.0 mg/dL 1.6-2.6 Platform Material Handler Manager ID - [id number] 05:26:09 Test Item Value Reference Range Interpretation Comments PHOSPHORUS (BEAKER) (test code = 3.5 mg/dL 2.3-4.7 604) Platform Material Handler Manager ID - ADMINBASIC METABOLIC [id number] 05:26:08 Test Item Value Reference Range Interpretation Comments SODIUM (BEAKER) 138 meq/L 136-145 (test code = 381) POTASSIUM 4.0 meq/L 3.5-5.1 (BEAKER) (test code = 379) CHLORIDE (BEAKER) 102 meq/L 98-107 (test code = 382) CO2 (BEAKER) 28 meq/L 22-29 (test code = 355) BLOOD UREA 8 mg/dL 7-21 NITROGEN (BEAKER) (test code = 354) CREATININE 0.72 mg/dL 0.57-1.25 (BEAKER) (test code = 358) GLUCOSE RANDOM 115 mg/dL 70-105 H (BEAKER) (test code = 652) CALCIUM (BEAKER) 8.6 mg/dL 8.4-10.2 (test code = 697) EGFR (BEAKER) 101 Interpretatio n of eGFR (test code = mL/min/1.73 values Stage De scription 1092) sq m Result G1 Komal l or [...] not appl icable for dialysis patien ts Platform Material Handler Manager ID - ADMINCBC W/PLT COUNT & AUTO [id number] 05:11:15 Test Item Value Reference Range Interpretation Comments WHITE BLOOD CELL COUNT (BEAKER) 13.6 K/ L 3.5-10.5 H (test code = 775) RED BLOOD CELL COUNT (BEAKER) 3.76 M/ L 3.93-5.22 L (test code = 761) HEMOGLOBIN (BEAKER) (test code = 10.9 GM/DL 11.2-15.7 L 410) HEMATOCRIT (BEAKER) (test code = 35.4 % 34.1-44.9 411) MEAN CORPUSCULAR VOLUME (BEAKER) 94 fL 79-95 (test code = 753) MEAN CORPUSCULAR HEMOGLOBIN 29.0 pg 25.6-32.2 (BEAKER) (test code = 751) MEAN CORPUSCULAR HEMOGLOBIN CONC 30.8 GM/DL 32.2-35.5 L (BEAKER) (test code = 752) RED CELL DISTRIBUTION WIDTH 16.0 % 11.7-14.4 H (BEAKER) (test code = 412) PLATELET COUNT (BEAKER) (test 357 K/CU MM 150-450 code = 756) MEAN PLATELET VOLUME (BEAKER) 8.4 fL 9.4-12.3 L (test code = 754) NUCLEATED RED BLOOD CELLS 0 /100 WBC 0-0 (BEAKER) (test code = 413) NEUTROPHILS RELATIVE PERCENT 81 % (BEAKER) (test code = 429) LYMPHOCYTES RELATIVE PERCENT 10 % (BEAKER) (test code = 430) MONOCYTES RELATIVE PERCENT 8 % (BEAKER) (test code = 431) EOSINOPHILS RELATIVE PERCENT 0 % (BEAKER) (test code = 432) BASOPHILS RELATIVE PERCENT 0 % (BEAKER) (test code = 437) NEUTROPHILS ABSOLUTE COUNT 10.97 K/ L 1.56-6.13 H (BEAKER) (test code = 670) LYMPHOCYTES ABSOLUTE COUNT 1.41 K/ L 1.18-3.74 (BEAKER) (test code = 414) MONOCYTES ABSOLUTE COUNT (BEAKER) 1.10 K/ L 0.24-0.36 H (test code = 415) EOSINOPHILS ABSOLUTE COUNT 0.00 K/ L 0.04-0.36 L (BEAKER) (test code = 416) BASOPHILS ABSOLUTE COUNT (BEAKER) 0.02 K/ L 0.01-0.08 (test code = 417) IMMATURE GRANULOCYTES-RELATIVE 0.70 % 0.00-1.00 PERCENT (BEAKER) (test code = 2801) XR spine lumbar 1 [id number] 10:32:20XR SPINE LUMBAR 1 VIEW CLINICAL INDICATION: L3-4 LAMINECTOMY COMPARISON: None[facility]XR [facility] 1 [id number] 10:32:20 [facility] : 1970 Sex: FXR SPINE LUMBAR 1 VIEWCLINICAL INDICATION: L3-4 LAMINECTOMYCOMPARISON: NoneIMPRESSION:A single lateral view of the lumbar spine is obtained intraoperatively.The posterior approach surgical instrument isseen at the L3-L4 level,inferior to the L3 spinous process. Results were communicated to , whoconcurred with the above findings. Electronically Signed By: Maxim Ramos08/01/2022 10:34 CDTWorkstation Name: [id number] SPINE LUMBAR 1 [id number] 10:29:18 [facility] : 1970 Sex: FCLINICAL HISTORY: L3-4 LAMINECTOMYTECHNIQUE: Single view of the lumbar spine.COMPARISON: NoneFINDINGS: A spinal needle overlies the L3 spinous process.Moderate spondylosis and facet arthropathy are present within the spine.Moderate to severe disc space narrowing at L4-L5. The vertebral body heights aremaintained without fracture ordislocation. Scattered atherosclerotic vascular calcifications.IMPRESSION:A spinal needle overlies the L3 spinous process.Electronically Signed By: Maxim Ramos08/01/2022 10:31 CDTWorkstation Name: [id number] Screen, [id number] 05:32:52 Test Item Value Reference Range Interpretation Comments Preg Test, Ur (test code = 2111-) Negative Negative Lab Interpretation (test code = Normal 77004-6) [facility]Pregnancy Screen, [id number] 05:32:52 Test Item Value Reference Range Interpretation Comments Preg Test, Ur (test code = 2111-1) Negative Negative Lab Interpretation (test code = Normal 40900-5) [facility], [id number] 05:32:52 Test Item Value Reference Range Interpretation Comments Preg Test, Ur (test code = 2112-1) Negative Negative Lab Interpretation (test code = Normal 15172-9) [facility]PREG[facility]NCY SCREEN, [id number] 05:32:52 Test Item Value Reference Range Interpretation Comments TEST URINE (BEAKER) (test Negative Negative code = 583) BASIC METABOLIC [id number] 23:30:54 Test Item Value Reference Range Interpretation Comments SODIUM (BEAKER) 137 meq/L 136-145 (test code = 381) POTASSIUM 4.6 meq/L 3.5-5.1 (BEAKER) (test code = 379) CHLORIDE (BEAKER) 99 meq/L 98-107 (test code = 382) CO2 (BEAKER) 26 meq/L 22-29 (test code = 355) BLOOD UREA 10 mg/dL 7-21 NITROGEN (BEAKER) (test code = 354) CREATININE 0.76 mg/dL 0.57-1.25 (BEAKER) (test code = 358) GLUCOSE RANDOM 159 mg/dL 70-105 H (BEAKER) (test code = 652) CALCIUM (BEAKER) 9.5 mg/dL 8.4-10.2 (test code = 697) EGFR (BEAKER) 95 Interpretatio n of eGFR (test code = mL/min/1.73 values Stage De scription 1092) sq m Result G1 Komal l or high >=90 G2 Mildly decreased 60-89 G3a Mildl y to moderately 45-5 9 G3b Moderately to s everely 30-44 G4 Severl y decreased 15-29 G5 Kidney failure <15Reported eGF R is based on the CKD-EPI 1 equation that d oes not use a race coefficientEsti mated GFR is not as accur ate as Creatinine Graciela quezada in predicting glom erular filtration rate . Estimated GFR is not appl icable for dialysis patien ts Platform Material Handler Manager ID - ADMINPT/[id number] 23:15:33 Test Item Value Reference Range Interpretation Comments PROTIME (BEAKER) (test code = 13.5 seconds 11.9-14.2 759) INR (BEAKER) (test code = 370) 1.02 <=5.90 PARTIAL THROMBOPLASTIN TIME 31.6 seconds 22.5-36.0 (BEAKER) (test code = 760) RECOMMENDED COUMADIN/WARFARIN INR THERAPY RANGESSTANDARD DOSE: 2.0 - 3.0 Includes: PROPHYLAXIS for venous thrombosis, systemic embolization; TREATMENT for venous thrombosis and/or pulmonary embolus.HIGH RISK: Target INR is 2.5-3.5 for patients with mechanical heart valves.CBC W/PLT COUNT & AUTO [id number] 23:13:01 Test Item Value Reference Range Interpretation Comments WHITE BLOOD CELL COUNT (BEAKER) 8.1 K/ L 3.5-10.5 (test code = 775) RED BLOOD CELL COUNT (BEAKER) 4.48 M/ L 3.93-5.22 (test code = 761) HEMOGLOBIN (BEAKER) (test code = 12.8 GM/DL 11.2-15.7 410) HEMATOCRIT (BEAKER) (test code = 40.8 % 34.1-44.9 411) MEAN CORPUSCULAR VOLUME (BEAKER) 91 fL 79-95 (test code = 753) MEAN CORPUSCULAR HEMOGLOBIN 28.6 pg 25.6-32.2 (BEAKER) (test code = 751) MEAN CORPUSCULAR HEMOGLOBIN CONC 31.4 GM/DL 32.2-35.5 L (BEAKER) (test code = 752) RED CELL DISTRIBUTION WIDTH 15.3 % 11.7-14.4 H (BEAKER) (test code = 412) PLATELET COUNT (BEAKER) (test 392 K/CU MM 150-450 code = 756) MEAN PLATELET VOLUME (BEAKER) 8.2 fL 9.4-12.3 L (test code = 754) NUCLEATED RED BLOOD CELLS 0 /100 WBC 0-0 (BEAKER) (test code = 413) NEUTROPHILS RELATIVE PERCENT 89 % (BEAKER) (test code = 429) LYMPHOCYTES RELATIVE PERCENT 9 % (BEAKER) (test code = 430) MONOCYTES RELATIVE PERCENT 1 % (BEAKER) (test code = 431) EOSINOPHILS RELATIVE PERCENT 0 % (BEAKER) (test code = 432) BASOPHILS RELATIVE PERCENT 0 % (BEAKER) (test code = 437) NEUTROPHILS ABSOLUTE COUNT 7.18 K/ L 1.56-6.13 H (BEAKER) (test code = 670) LYMPHOCYTES ABSOLUTE COUNT 0.72 K/ L 1.18-3.74 L (BEAKER) (test code = 414) MONOCYTES ABSOLUTE COUNT (BEAKER) 0.09 K/ L 0.24-0.36 L (test code = 415) EOSINOPHILS ABSOLUTE COUNT 0.00 K/ L 0.04-0.36 L (BEAKER) (test code = 416) BASOPHILS ABSOLUTE COUNT (BEAKER) 0.02 K/ L 0.01-0.08 (test code = 417) IMMATURE GRANULOCYTES-RELATIVE 1.10 % 0.00-1.00 H PERCENT (BEAKER) (test code = 2801) CT neck soft tissue without IV [id number] 13:45:22EXAM: CT NECK SOFT TISSUE WITHOUT IV CONTRAST CLINICAL INDICATION: Soft tissue mass, neck, spontaneous hemorrhage. TECHNIQUE: Helical CT examination of the neck without IV contrast.Sagittal and coronalreformations were generated. This exam wasperformed according to our departmental dose-optimization program, whichincludes automated exposure control, adjustment of the mA and/or kVaccording to patientsize and/or use of iterative reconstructiontechnique. COMPARISON: 08/02/2022 CTA head and neck FINDINGS: Soft tissues:Subcutaneous emphysema seen in the left neck soft tissues involving thesubmandibularand carotid spaces. Fat stranding is noted left neckcompartments, primarily submandibular space and left carotid space.Retropharyngeal fluid measures up to 0.8 x 2.3 cm (AP by transverse withsmall fociof air noted.A 1.8 x 2.9 x 1.3 cm (CC X AP X transverse) region of fluid is seen inthe left anterolateral neck soft tissues deep to the platysma muscle(axial image 59). Aerodigestive Tract Structures: Nasopharynx, oropharynx, oral cavity,larynx and hypopharynx are normal. Lymph Nodes: No pathologic eladio earing cervical lymph nodes. Parotid Glands: NormalSubmandibular Glands: NormalThyroid Gland: NormalIncluded Intracranial Structures: NormalIncluded Orbits: Normal Paranasal Sinuses: Partial desiccation of the left inferior maxillarysinus.Tympanomastoid Cavities: Normal Vascular Structures: NormalOsse ous Structures: Moderate rightward convexity of the bony nasalseptum. Postoperative changes from anterior cervical discectomy fusionat C3-Z3Udksxzwo Lung Apices: NormalCHI Palo Verde HospitalCT NECK SOFT TISSUE WITHOUT IV [id number] 13:45:22 [facility] : 1970 Sex: FEXAM: CT NECK SOFT TISSUE WITHOUT IV CONTRASTCLINICAL INDICATION: Soft tissue mass, neck, spontaneoushemorrhage.TECHNIQUE: Helical CT examination of the neck without IV contrast.Sagittal and coronal reformations were generated. This exam wasperformed according to our departmental dose-optimization program, whichincludes automated exposure control, adjustment of the mA and/or kVaccording to patient size and/or use of iterative reconstructiontechnique.COMPARISON: 08/02/2022 CTA head and neckFINDINGS:Soft tissues:Subcutaneous emphysema seen in the left neck soft tissues involving thesubmandibular and carotid spaces. Fat stranding is noted left neckcompartments, primarily submandibular space and left carotid space.Retropharyngeal fluid measures up to 0.8 x 2.3 cm (AP by transverse withsmall foci of air noted.A 1.8 x 2.9 x 1.3 cm (CC X AP X transverse) region of fluid is seen inthe left anterolateral neck soft tissues deep to the platysma muscle(axial image 59).Aerodigestive Tract Structures: Nasopharynx, oropharynx, oral cavity,larynx and hypopharynx are normal.Lymph Nodes: No pathologic appearing cervical lymph nodes.Parotid Glands: NormalSubmandibular Glands: NormalThyroid Gland: NormalIncluded Intracranial Structures: NormalIncluded Orbits: NormalParanasal Sinuses: Partial desiccation of the left inferior maxillarysinus.Tympanomastoid Cavities: NormalVascular Structures: NormalOsseous Structures: Moderate rightward convexity of the bony nasalseptum. Postoperative changes from anterior cervical discectomy fusionat C3-U6Emgmcylj Lung Apices: NormalIMPRESSION:Exam limited by lack of intravenous contrast.1. 1.8 x 2.9 x 1.3 cm ill-defined fluid collection in the leftanterolateral neck soft tissues, suggesting evolving postoperativehemorrhage. Superimposed infection is not excluded.2. Retropharyngeal fluid and air measuring up to 0.8 cm in thickness,favored to be present postoperative right frontal edema. Superimposedinfection is not excluded.3. Postoperative changes from ACDF at C3-B6Kedywzswutwvah Signed By: Maxim Ramos07/31/2022 13:47 CDTWorkstation Name: [id number] METABOLIC [id number] 08:13:13 Test Item Value Reference Range Interpretation Comments SODIUM (BEAKER) 137 meq/L 136-145 (test code = 381) POTASSIUM 4.1 meq/L 3.5-5.1 (BEAKER) (test code = 379) CHLORIDE (BEAKER) 104 meq/L 98-107 (test code = 382) CO2 (BEAKER) 22 meq/L 22-29 (test code = 355) BLOOD UREA 10 mg/dL 7-21 NITROGEN (BEAKER) (test code = 354) CREATININE 0.70 mg/dL 0.57-1.25 (BEAKER) (test code = 358) GLUCOSE RANDOM 92 mg/dL 70-105 (BEAKER) (test code = 652) CALCIUM (BEAKER) 8.7 mg/dL 8.4-10.2 (test code = 697) EGFR (BEAKER) 105 Interpretatio n of eGFR (test code = mL/min/1.73 values Stage De scription 1092) sq m Result G1 Komal l or high >=90 G2 Mildly decreased 60-89 G3a Mildl y to moderately 45-5 9 G3b Moderately to s everely 30-44 G4 Severl y decreased 15-29 G5 Kidne y failure <15Reported eGF R is based on the CKD-EPI 2020 equation that d oes not use a race coefficientEsti mated GFR is not as accur ate as Creatinine Graciela pilar in predicting glom erular filtration rate . Estimated GFR is not appl icable for dialysis patien ts Platform Material Handler Manager ID - BVCBC W/PLT COUNT & AUTO [id number] 07:46:31 Test Item Value Reference Range Interpretation Comments WHITE BLOOD CELL COUNT (BEAKER) 9.0 K/ L 3.5-10.5 (test code = 775) RED BLOOD CELL COUNT (BEAKER) 4.51 M/ L 3.93-5.22 (test code = 761) HEMOGLOBIN (BEAKER) (test code = 12.8 GM/DL 11.2-15.7 410) HEMATOCRIT (BEAKER) (test code = 41.5 % 34.1-44.9 411) MEAN CORPUSCULAR VOLUME (BEAKER) 92 fL 79-95 (test code = 753) MEAN CORPUSCULAR HEMOGLOBIN 28.4 pg 25.6-32.2 (BEAKER) (test code = 751) MEAN CORPUSCULAR HEMOGLOBIN CONC 30.8 GM/DL 32.2-35.5 L (BEAKER) (test code = 752) RED CELL DISTRIBUTION WIDTH 15.7 % 11.7-14.4 H (BEAKER) (test code = 412) PLATELET COUNT (BEAKER) (test 432 K/CU MM 150-450 code = 756) MEAN PLATELET VOLUME (BEAKER) 8.0 fL 9.4-12.3 L (test code = 754) NUCLEATED RED BLOOD CELLS 0 /100 WBC 0-0 (BEAKER) (test code = 413) NEUTROPHILS RELATIVE PERCENT 73 % (BEAKER) (test code = 429) LYMPHOCYTES RELATIVE PERCENT 18 % (BEAKER) (test code = 430) MONOCYTES RELATIVE PERCENT 7 % (BEAKER) (test code = 431) EOSINOPHILS RELATIVE PERCENT 0 % (BEAKER) (test code = 432) BASOPHILS RELATIVE PERCENT 1 % (BEAKER) (test code = 437) NEUTROPHILS ABSOLUTE COUNT 6.62 K/ L 1.56-6.13 H (BEAKER) (test code = 670) LYMPHOCYTES ABSOLUTE COUNT 1.65 K/ L 1.18-3.74 (BEAKER) (test code = 414) MONOCYTES ABSOLUTE COUNT (BEAKER) 0.62 K/ L 0.24-0.36 H (test code = 415) EOSINOPHILS ABSOLUTE COUNT 0.04 K/ L 0.04-0.36 (BEAKER) (test code = 416) BASOPHILS ABSOLUTE COUNT (BEAKER) 0.05 K/ L 0.01-0.08 (test code = 417) IMMATURE GRANULOCYTES-RELATIVE 0.60 % 0.00-1.00 PERCENT (BEAKER) (test code = 2801) XR spine cervical 2 or 3 [id number] 20:24:23TECHNIQUE: Frontal and lateral views of the cervical spine. INDICATION: Postop Standing Films. COMPARISON: None.[facility] HospitalXR SPINE CERVICAL 2 OR 3 [id number] 20:24:23[facility] YUE EUSEBIAGRACIELA MCCABE : 1970 Sex: FTECHNIQUE: Frontal and lateral views of the cervical spine.INDICATION: Postop Standing Films.COMPARISON: None.IMPRESSION:C7 is not well seen on lateral view. Status post C3-C4 ACDF with alignedhardware.Prior C4-C7 ACDF with interbody osseous fusion with intacthardware. No acute fracture or malalignment. Prevertebral soft swellingcompatible with recent postsurgical changes. There is a calcifiedgranuloma at the left lung apex.Electronically Signed By: Zachariah Garcia05/28/2023 20:26 CDTWorkstation Name: [id number] fluoro non-specific up to 1 [id number] 11:45:16This is a non-reportable study with no Radiologist dictation. Please refer to your PACS to review images, or Doc Flowsheets for documentation on studies without images.[facility] HospitalFL FLUORO NON-SPECIFIC UP TO 1 [id number] 11:45:16 [facility] EU[facility] : 1970 Sex: FThis is a non- reportable study with no Radiologist dictation. Please refer to your PACS to review images, or Doc Flowsheets for documentation on studies without images.FL FLUORO NON-SPECIFIC UP TO 1 [id number] 10:13:02 [facility] EU[facility] TURNER : 1970 Sex: FTECHNIQUE: 1 lateral fluoroscopic image of the cervical spine forlocalization.Fluoroscopic time: 3 second(s).FINDINGS:The surgical pointer is at C3-C4.The findings were discussed with Dr. Garcia in the OR who concurred withthe findings.IMPRESSION:Intraoperative localization plain film as described above.El ectronically Signed By: Derik Reyez05/28/2023 10:15 CDTWorkstation Name: [id number], QUANTITATIVE, [id number] 08:21:03 Test Item Value Reference Range Interpretation Comments GONADOTROPIN, CHORIONIC (HCG) QUANT < mIU/mL 0-10 (LATOYA) (test code = 649) Non- Females: <10 mIU/mL Females: Gestation Age Reference Range(mIU/mL) 0.2-1 Week 5-50 1-2 Weeks 50-500 2-3 Weeks 100-5,000 3-4 Weeks 500-10,000 4-5 Weeks 1,000-50,000 5-6 Weeks 10,000-100,000 6-8 Weeks 15,000- 200,000 2-3 Months 10,000-100,000 Platform Material Handler Manager ID - ADMINCULTURE, [id number] 09:28:30SPECIMEN NUMBER: [id number] CULTURE, URINE SPECIMEN NUMBER: [id number] SPECIMEN COMMENT: URINE SOURCE: URINE REPORT STATUS: FINAL FINAL REPORT: 05/15/2023 >100,000 CFU/ML UROGENITAL REBEL PRESENT NOCOMMON PATHOGENS UNLESS OTHERWISE INDICATED, ALL TESTING PERFORMED AT [facility] [employer] [address] [place] [address] METAL FABRICATOR APPRENTICE: JANNY STEINER M.D. CLIA NUMBER [id number] [facility] [id number], [id number] 12:02:50SPECIMEN NUMBER: [id number] CULTURE, URINE SPECIMEN NUMBER: [id number] SOURCE: URINE REPORT STATUS: FINAL FINAL REPORT: 05/13/2023 NO SPECIMEN RECEIVED FOR TESTING. CHARGES DELETED.BASIC METABOLIC [id number] 04:48:43 Test Item Value Reference Range Interpretation Comments GLUCOSE (test code = 2217) 117 MG/DL 70-99 H BUN (test code = 2208) 20 MG/DL 6-20 CREATININE (test code = 2214) 0.83 MG/DL 0.60-1.30 eGFR (2020 CKD-EPI) (test code 85 ML/MIN/1.73 >60 = 24182) SODIUM (test code = 2231) 141 MEQ/L 133-146 POTASSIUM (test code = 2228) 3.6 MEQ/L 3.5-5.4 CHLORIDE (test code = 2215) 97 MEQ/L 95-107 CARBON DIOXIDE (test code = 26 MEQ/L -31 2205) CALCIUM (test code = 2209) 10.4 MG/DL 8.5-10.5 PROTHROMBIN TIME (PT)2023-05-09 02:52:41 Test Item Value Reference Range Interpretation Comments PROTHROMBIN TIME 12.7 SECONDS 12.5-14.7 (PT) (test code = 1402) INR (test code = 0.9 SEE BELOW CURRENT 56728) RECOMMENDATIONS ARE FOR AN INR OF 2 .0-3.0 FOR ALL PATIENT S ON VITAMIN K ANTAG ONISTS, EXCEPT THOSE WI TH PROSTHETIC HEAR T VALVES, FOR WHO M INR OF 2.5-3.5 IS RECOMMENDED. U NLESS OTHERWISE INDIC ATED, ALL TESTING PER FORMED AT [facility] [employer] [place] [address] [facility] [place] [address] ANAHI MARTHA DIRECTOR: David DICKERSON HANNAH NUMBER [id number] CAP ACCREDITATION N O. [id number] CBC W/AUTO DIFF WITH [id number] 01:54:17 Test Item Value Reference Range Interpretation [...] RBCS 0.00 K/UL 0.00-0.11 (test code = 34206) ECG 12 [id number] 14:02:48Ventricular Rate 102 BPMAtrial Rate 102 BPMP-R Interval 146 msQRS Duration 90 msQ-T Interval 372 msQTC Calculation(Bazett) 484 msP [place] 11 degreesR [place] -53 degreesT [place] 29 degrees Sinus tachycardiaPossible Left atrial enlargementLeft axis deviationPoor R wave progression Cannot rule out Anterior infarct , age undetermined vs lead misplacementNonspecific T wave abnormalityProlonged QTAbnormal ECGNo previous ECGs availableConfirmed by David GARCIA BASANT ([id number]) on 04/06/2023 2:02:46 [facility] W CONTRAST & [id number] 13:11:39Transthoracic Echocardiography Report (TTE) Demographics Patient Name YUE LAWS Date of Study03/31/2023 ESTELLE Gender Female Visit Number [id number] Race Room Number 2227 Number Date of 1970 Referring Physician Mariah Aldridge MD Age 53 year(s) Handtools Repairer Wilmer Francois [employer] Officer Josefina Corbett, [facility] Interpreting Physician Melody MDProcedure Type of Study TTE procedure:2DECHO W DOPPLER(CW/PW/COLOR) (Routine)Indications:Shortness of breath.Clinical HistoryCHF, ANXIETY, COPD, CVA, HTN, SEIZURESContrast Medium: Definity. Amount - 2 mlHeight: 62 inches Weight: 92.08 kg (203 lbs) BSA: 1.92 m^2 BMI: 37.13 kg/m^2HR: 75 bpm BP: 113/65 mmHg Summary The left ventricle chamber size (by vol index) is moderately enlarged (female - LVED vol -71-80ml/m2). All of the LV segments are hypokinetic . LVEF by Downs's method of disk assessment is moderately reduced (30-34%) . Grade 2 diastolic dysfunction (moderately increased LA pressure). Estimated peak systolic PA pressure is 30-35 mmHg (normal range) . Previous Study No prior studies wilbert ilable for comparison. Signature FindingsTechnical Quality: Technically difficult exam. Left Ventricle LV endocardium is adequately visualized with IV ultrasound enhancing agent.The left ventricle chamber size (by vol index) is moderately enlarged (female - LVED vol -71-80ml/m2). No evidence of LV hypertrophy. All of the LV segments are hypokinetic . Global LV systolic function moderately reduced . LVEF by Downs's method of disk assessment is moderately reduced (30-34%) . Grade 2 diastolic dysfunction (moderately increased LA pressure). Left Atrium LA size is moderately enlarged (42-48 ml/m2) . Right Ventricle The right ventricular chamber size and systolic function are normal. TAPSE 1.8 mm, RV S' 0.10 m/s. Right Atrium RA size is normal. Aortic Valve Mild AoV cusp thickening. Mild to moderate aortic regurgitation. No evidence of aortic stenosis. Mitral Valve Mild MV leaflet thickening. Mild mitral annular calcification. Trace mitral regurgitation. Tricuspid Valve Thetricuspid valve is not well visualized. A trace of tricuspid regurgitation. Estimated peak systolic PA pressure is 30-35 mmHg (normal range) . Peak systolic pressure may be underestimated; partial TR signal. Pulmonic Valve PV is not well visualized; function appears normal by Doppler visualized. AortaAortic root size (Sinus of Valsalva diameter) is normal . Pericardium No pericardial effusion is visualized. IVC/SVC/PA/PV/Pleural The estimated RA pressure by IVC dynamics 0-5mmHg .Chambers/StructuresLeft Atrium LA Volume: 79.75 ml LA Area: 24.9 cm^2 LA Vol. Index: 42 ml/m^2 Left Ventricle LVIDd: 5.46 cm LV Septum Diastolic: 1.04 cm LV PW Diastolic: 1.03 cm LVEDV Downs's:152.05 ml LVESV Downs's:104.5 ml LVEF Downs's: 31.3 % LVEDVI: 79 ml/m^2 LVESVI: 54 ml/m^2 LVOT Diameter: 2.19 cm Right Ventricle RVOT VTI: 10.69 cmAorta Ao Root S of Rosangela.: 3.08 cmDoppler/Quantitative Measurements Mitral Valve MV Peak E-Wave: 1.24 m/s MV Peak A-Wave: 0.94 m/s E/A Ratio: 1.32 Peak Gradient: 6.11 mmHg Deceleration Time: 162.8 msec MV Evette. Peak: Tissue Doppler E' Septal Velocity: 0.06 m/s E/E': 19.74 E' Lateral Velocity: 0.06 m/s Aortic Valve Peak Velocity: 1.43 m/s Mean Velocity: 1.03 m/s Peak Gradient: 8.22 mmHg Mean Gradient: 4.7 mmHg AV Area (continuity): 2.95 cm^2 AV VTI: 25.77 cm AR P1/2t: 343.7 msecDeceleration Time: 1185.1 msec AV DVI: 0.78 LVOT Peak Velocity: 1.12 m/s Peak Gradient: 5.06 mmHg Mean Velocity: 0.74 m/s Mean Gradient: 2.54 mmHg LVOT Diameter: 2.19 cm LVOT VTI: 20.18 cm LVOT Area: 3.77 cm^2 LVOT SV:75.98 ml LVOT CO: 5.7 l/min LVOT CI: 2.97 l/min/m^2 Tricuspid Valve TR Velocity: 2.73 m/s TR Gradient: 29.86 mmHg Pulmonic Valve Peak Velocity: 0.74 m/s Peak Gradient: 2.22 mmHgCHI [facility] HospitalXR [facility] 1 view portable / [id number] 15:39:07TECHNIQUE: Frontal view of the chest. INDICATION: CHf. COMPARISON: None. FINDINGS: LINES/TUBES: None. HEART AND MEDIASTINUM: Cardiomediastinal contour is within normallimits. LUNGS: The lungs are well inflated and clear. No consolidation orpulmonary edema. PLEURA: No pneumothorax. No significant pleural effusion. SOFT TISSUES AND BONES: Cervical spinal fixation hardware is noted.[facility] / [id number] 15:39:07 [facility] : 1970 Sex: FTECHNIQUE: Frontal view of the chest.INDICATION: CHf.COMPARISON: None.FINDINGS:LINES/TUBES: None.HEART AND MEDIASTINUM: Cardiomediastinal contour is within normallimits. LUNGS: The lungs are well inflated and clear. No consolidation orpulmonary edema.PLEURA: No pneumothorax. No significant pleural effusion.SOFT TISSUES AND BONES: Cervical spinal fixation hardware is noted.IMPRESSION:No acute cardiopulm onary process.Electronically Signed By: Jose Carlos Lebron04/01/2023 15:41 CDTWorkstation Name: [id number] NATRIURETIC FACTOR (BNP)2023-04-01 14:15:07 Test Item Value Reference Range Interpretation Comments B-TYPE NATRIURETIC PEPTIDE (BEAKER) 192 pg/mL 0-100 H (test code = 700) Platform Material Handler Manager ID - ADMINMR spine cervical without IV [id number] 11:30:35MRI cervical spine without contrast CLINICAL HISTORY: Cervical radiculopathy, no red flags TECHNIQUE: Multiplanar, multisequence noncontrast MRI of the cervicalspine was performed. COMPARISON: None available. FINDINGS: Vertebral body height and alignment is within normal limits. The bonemarrow signal is normal. Postoperative changes from C4-C7 anterior cervical fusion. The craniocervical junction andvisualized intracranial compartment areunremarkable. T2/STIR hyperintensity seen within the cervicalcord at the C3-C4 level(series 12 one image eight and series 1101 image 22 The intervertebraldisc spaces are normal in height and signal. Degenerative facet ankylosis at the left C4-C6 levels. The individual disc levels demonstrate the following: C2-C3: No significant spinal canal or neural foraminal stenosis. C3-C4: Posterior disc osteophyte complex with moderate bilateral neuralforaminal stenosis and severe spinal canal stenosis C4-C5: Mild nonspecific focal STIR hyperintensity at the posterior dis cspace. C5-C6: No significant spinal canal or neural foraminal stenosis. C6-C7: No significant spinal canal or neural foraminal stenosis. C7-T1: Facet arthropathy with moderate to severe left neural foraminalstenosis. The prevertebral and paraspinal soft tissues are within normal limits.[facility]MR C[facility]ICAL SPINE WITHOUT IV [id number] 11:30:35 [facility] : 1970 Sex: FMRI cervical spine without contrastCLINICAL HISTORY: Cervical radiculopathy, no red flagsTECHNIQUE: Multiplanar, multisequence noncontrast MRI of the cervicalspine was performed.COMPARISON: None available.FINDINGS:Vertebral body height and alignment is within normal limits. The bonemarrow signal is nor mal.Postoperative changes from C4-C7 anterior cervical fusion.The craniocervical junction and visualized intracranial compartment areunremarkable.T2/STIR hyperintensity seen within the cervical cord atthe C3-C4 level(series 12 one image eight and series 1101 image 22 The intervertebraldisc spaces arenormal in height and signal. Degenerative facet ankylosis at the left C4-C6 levels.The individual disc levels demonstrate the following:C2-C3: No significant spinal canal or neural foraminal stenosis.C3-C4: Posterior disc osteophyte complex with moderate bilateral neuralforaminal stenosis and severe spinal canal stenosisC4- C5: Mild nonspecific focal STIR hyperintensity at the [...] Signed By: Maxim Sultana03/31/2023 11:32 CDTWorkstation Name: [id number] COMPREHENSIVE METABOLIC [id number] 04:43:14 Test Item Value Reference Range Interpretation [...] not appl icable for dialysis patien ts Platform Material Handler Manager ID - [facility] (HEMOGRAM ONLY)2023-03-31 04:20:07 Test Item Value Reference [...] WBC 0-0 (BEAKER) (test code = 413) Arterial doppler legs [id number] 17:44:07PV LAB - Lower Extremity Arterial Duplex Demographics Patient Name YUE LAWS Date of Study 05/2023 ESTELLE Age 53 Visit Number [id number] Gender Female Accession Number [id number] Date of 1970 Referring Mariah Aldridge, Room Number 2227 Physician Handtools Repairer Kathie Interpreting John Solorio, Physician FellowProcedureType of Study: Extremities Arteries: Lower Extremities Arterial Duplex, ARTERIAL DOPPLER LEGS, BILATERAL.Indications for Study:PVD.Patient Status:Routine.Study Location:Vascular Lab.Technical Quality:Adequate visualization.Risk FactorsHistory of Disease+ + + --+!Diagnosis !Date !Comments !+ + + +! History/Risk Factors: !03/30/2023!CHF, CVA, HTN. !+ + +- +ImpressionsRight Impression1. The common femoral, profunda femoral, superficial femoral, popliteal,posterior tibial, peroneal and anterior tibial arteries are patent withbiphasic and triphasic Doppler waveforms throughout.2. There was a <50% stenosis at the distal common femoral artery.3. The vessels have diffuse, calcified plaque.4. The digits are dusky and cool to the touch.Left Impression1. The common femoral, profunda femoral, superficial femoral, popliteal,posterior tibial, peroneal and anterior tibial arteries are patent withbiphasic and triphasic Doppler waveformsthroughout.2. The vessels have diffuse, calcified plaque.3. The digits are dusky and cool to the touch. Conclusions Summary Arterial duplex was performed on the bilateral lower extremities. Adequate Doppler waveforms were obtained. Doppler waveforms were biphasic and triphasic bilaterally. There was a<50% stenosis in the right distal common femoral artery. There was diffuse calcified plaque throug hout, bilaterally. The bilateral digits had a dusky appearance and felt cool to the touch. Signature Velocities are measured in cm/s ; Diameters are measured in cmLE Duplex Measurements Right Left + + + + + + + + + + !Location ! !PSV !EDV !Waveform ! !PSV !EDV !Waveform ! + + + + + + +--- + + + !Mid Common Femoral ! !153 ! !Triphasic! !153 ! !Triphasic ! + + + -----+ + + + + + + !Prox PFA ! !60.5 ! !Triphasic ! !80.9 ! !Triphasic ! + + + + + + +- + + + !Prox SFA ! !146 ! !Triphasic ! !140 ! !Triphasic ! + + + + + + + + + + !Mid SFA ! !150 ! !Triphasic ! !144 ! !Triphasic ! + + + + + + + ------+ + + !Dist SFA ! !106 ! !Triphasic ! !82.1 ! !Triphasic ! + + + + + + + + + + !Prox Popliteal ! !85 ! !Triphasic ! !80.9 ! !Triphasic ! + + + + + + + + + + !Dist Popliteal ! !69.5 ! !Triphasic ! !70.4 ! !Triphasic ! + + + + + + + + + + !Prox LANGUAGE ARTS TEACHER ! !32 ! !Biphasic ! !60.9 ! !Triphasic ! + + + + + + + + + + !Mid LANGUAGE ARTS TEACHER ! !25.9 ! !Biphasic ! !59.7 ! !Triphasic ! +- + + + + + + + + + !Dist LANGUAGE ARTS TEACHER ! !33.2 ! !Biphasic ! !37.4 ! !Biphasic ! + + + + + + + + + + !Prox KENDRA ! !56.2 ! !Biphasic ! !60.5 ! !Triphasic ! +--------- + + + + + + + + + !Mid KENDRA ! !36.7 ! !Biphasic ! !47.9 ! !Biphasic ! + + + + + + + + + + !Dist KENDRA ! !37.4 ! !Biphasic ! !58.1 ! !Biphasic ! + + + + + + + + + + !Prox Peroneal ! !32.4 ! !Triphasic ! !60.5 ! !Triphasic ! + + +--- + + + + + + + !Mid Peroneal ! !27.9 ! !Biphasic ! !39.8 ! !Triphasic ! + + + + + + + + + + !Dist Peroneal ! !31.6 !!Biphasic ! !23.6 ! !Biphasic ! + + +--- + + + + + + +[facility]AB[facility] Only(Ankle/Brachial Index)2023-03-30 17:13:47PV LAB - Lower Extremity Arterial Procedure Demographics Patient Name YUE LAWS Date of Study 03/30/2023 ESTELLE Age 53 Visit Number [id number] Gender Female Accession Number [id number] Date of 1970 Referring Mariah Aldridge, Room Number 2227 Physician Handtools Repairer Yovana Akins Interpreting John Solorio, Physician FellowProcedureType of Study: ExtremitiesArteries: Lower Extremity Arterial Procedure, ARTERIAL (ALEISHA'S W/DOPPLER) ONLY.Indications for Study:PVD.Patient Status:Routine.Study Location:Vascular Lab.Technical Quality:Adequate visualization.Risk FactorsHistory of Disease+ + + --+!Diagnosis !Date !Comments !+ + + +!History/Risk Factors: !03/30/2023!CHF, CVA, HTN. !+ +--------- -+ +ImpressionsRight Impression1. The posterior tibial and dorsalis pedis arteries are patent withtriphasic Doppler waveforms.2. The PT pressure is 106 mmHg with an ALEISHA of .79 and the DP pressure is 102mmHg with an ALEISHA of .76, within the moderate obstruction range.3. The digitsdo not have adequate flow by PPG waveforms. No TBI is obtainedLeft Impression1. The posterior tibialand dorsalis pedis arteries are patent withtriphasic Doppler waveforms.2. The PT pressure is 116 mmHg with an ALEISHA of .86 and the DP pressure is 121mmHg with an ALEISHA of .90, within the mild obstruction range.3. The digits do not have adequate flow by PPG waveforms. No TBI isobtained. Conclusions SummaryArterial pressures and Doppler waveforms were performed bilaterally. Adequate Doppler waveforms wereobtained. Doppler waveforms were triphasic bilaterally. The right ALEISHA's were within the moderate obstruction range. The left ALEISHA's were within the mild obstruction range. The bilateral digits did not have adequate flow by PPG waveforms bilaterally. No TBI's were obtained. Signature Velocities are measured in cm/s ; Diameters are measured in [facility] thoracic spine without IV [id number] 12:50:50MR THORACIC SPINE WITHOUT IV CONTRAST INDICATION: Unlisted Reason for ExamConcern for cord compression TECHNIQUE: Multiplanar, multisequence MR images of the thoracic spinewere obtained. Images obtained without intervenous contrast. COMPARISON: MRI lumbar spine 03/30/2023. FINDINGS: Thoracic spine:Spinal cord is normal in caliber and signal intensity without evidenceof cord compression. Small disc bulges at T3- T4, T7-8, T11-12 Flattened the ventral cord with mild spinal canal stenosis without cordsignal abnormality. T10-11 moderate right neural foraminal stenosis [id number] moderate bilateral foraminal stenosis due to facet hypertrophyand ligamentum flavum redundancy. Thoracic vertebrae maintain normal height. Mild multilevel degenerativedisc changes. No evidence of acute osseous fracture or traumaticmalalignment. No paraspinal mass. Conus medullaris terminates at L1. Redundant cauda equina partiallyimaged and further reported on MRI lumbar spine. [facility] IV [id number] 12:50:50[facility] : 1970 Sex: [...] abnormality. T10-11 moderate right neural foraminal stenosis [id number] moderate bilateral foraminal stenosis due to facet hypertrophyand ligamentum flavum redundancy.Thoracic vertebrae maintain normal height. Mild multilevel degenerativedisc changes. No evidence of acute osseous fracture or traumaticmalalignment. No paraspinal mass.Conus medullaris terminates at L1. Redundant cauda equina partiallyimaged and further reported on MRI lumbar spine.IMPRESSION:No evidence of cord compression of the thoracic spinal cord.Multilevel degenerative changes of the thoracic spine.Electronically Signed By: Ryan Buckley03/30/2023 12:52 CDTWorkstation Name: [id number] spine lumbar without IV [id number] 12:33:57MR LUMBAR SPINE WITHOUT IV CONTRAST INDICATION: Unlisted Reason for ExamConcern for cord compressionCOMPARISON: None TECHNIQUE: Multiplanar, multisequence MR images of the lumbar spinewithout contrast. FINDINGS: For the purposes of this dictation, the 5 lowermost qbhgog-vwtpzecvgyrwj-wriy vertebral bodies are labeled L1-L5.Alignment of the lumbar spine is within normal limits. Vertebral body height is maintained. Bone marrow edema is seen at the inferior L3 and superior L4 vertebralbodies and bilateral L4 pedicles, favored to be degenerative in nature. Suggestion of a synovial cyst at the right T10-T11 level (series 301image eight). No spinal cord signal abnormality identified.Mild clumping/thickening of the cauda equina nerve roots, which mayrepresent arachnoiditis (series 301 image eight). No acute findings in the paraspinal soft tissues. Evaluation of the individual levels demonstrates: L1/L2: No significant canal or foraminal narrowing.L2/L3: Symmetric disc bulge and prominent epidural fatcausing moderatespinal canal stenosisL3/L4: Posterior disc osteophyte complex, facet arthropathy, and ligamentum flavum buckling with severe spinal canal stenosis withclumping of the cauda equina nerve roots and moderate to severebilateral neural foraminal stenosisL4/L5: Moderate to severely degenerated disc with endplateirregularity. Symmetric disc bulge and facet arthropathy with moderateto severe bilateral neural foraminal stenosisL5/S1: Symmetric disc bulge and facet arthropathy with mild to moderatebilateral neural foraminal stenosisCHI Palo Verde HospitalMR LUMBAR SPINE WITHOUT IV [id number] 12:33:57 [facility] EU[facility] : 1970 Sex: FMR LUMBAR SPINE WITHOUT IV CONTRASTINDICATION: Unlisted Reason for ExamConcern for cord compressionCOMPARISON: NoneTECHNIQUE: Multiplanar, multisequence MR images of the lumbar spinewithout contrast. FINDINGS: For the purposes of this dictation, the 5 lowermost xaqtkr-pqkjbvasfxwfc-ghxu vertebral bodies are labeled L1- L5.Alignment of the lumbar spine is within normal limits. Vertebral body height is maintained. Bone marrow edema is seen at the inferior L3 and superior L4 vertebralbodies and bilateralL4 pedicles, favored to be degenerative in nature.Suggestion of a synovial cyst at the right F21-N91ysvaz (series 301image eight).No spinal cord signal abnormality [...] flavum buckling versus synovial cyst at the ukaupE37-D16 level (series 301 image eight). MRI thoracic spine can beconsidered for further evaluation.7. Mild clumping of the cauda equina nerve roots, which is nonspecificbut may represent arachnoiditis. Postcontrast imaging can be consideredfor further evaluation.Electronically Signed By: Maxim Sultana03/30/2023 12:36 CDTWorkstation Name: [id number] 11:45:01 Test Item Value Reference Range Interpretation Comments HEMOGLOBIN A1C 5.7 % See_Comment H [Automated m essage] ELECTROPHORESIS ([employer] The system which (test code = 3811) generated this result transmitted ref erence range: <=5.6%. The reference range was not used to int erpret this result as normal/abnormal . "The A1c is measured using a NGSP-certified method. HbA1c value equal to or greater than 6.5% as thediagnosis cutoff for diabetes. An HbA1c value of 5.7- 6.4% indicates increased risk for diabetes (prediabetes)."Platform Material Handler Manager ID - ADMEEG AWAKE AND [id number] 09:57:53Steph Martinez MD 03/30/2023 9:59 AMELECTROENCEPHALOGRAM FOR [facility]ST[facility] Type: Inpatient, outpatient, EMUDATE(s) OF EE03/30/23DATE OF REPORT: 03/30/23MRN: [id number] of : [id number] time: 08:36Stop time: 09:23ICD-10: R56.9 CPT Code: 76798 (awake and asleep) HISTORY: 53 y/o female with pmhx: HTN,HF,COPD, chronic lower back pain, seizure disorder. Has had sz's for past 17-18 years, says they developed after stroke. Was prescribed anti-seizure 53 y/o female with pmhx: HTN,HF,COPD, chronic lower back pain, seizure disorder. Has had sz's for past 17-18 years, says they developed after stroke. Was prescribed anti-seizure 53 y/o female with pmhx: HTN,HF,COPD, chronic lower back pain, seizure disorder. Has had sz's for past 17-18 years, says they developed after stroke. Was prescribed anti-seizure MEDICATIONS THAT COULD AFFECT EEG: Depakote, Lorazepam TECHNICAL SUMMARY:This is a digital EEG recorded with 32 input channels reviewed with bipolar and referential montages using the modified combinatorial system nomenclature. DESCRIPTION OF RECORD AND EVENTS:Background: During the maximally alert state a 11 Hz posterior dominant rhythm was seen that was symmetric, reactive to eye opening and well regulated. More anteriorly, low voltage frontocentral beta predominated. Drowsiness was characterized by alpha attenuation, decreased eye blinks and increased frontocentral theta. Sleep: Stage 2 sleep was reached characterized by symmetric sleep spindles and K-complexes. Slowing: None Attenuation: None Epileptiform, rhythmic or periodic patterns: None Seizures or clinical events: None HV: Hyperventilation was not performed. PHOTIC STIMULATION: Photic stimulation was done from 1-33 Hz; no photic driving was seen; photoparoxysmal responses were absent. ELECTROCARDIOGRA M: Normal Sinus Rhythm IMPRESSION: Normal Awake and Asleep EEG CLINICAL CORRELATION: This is a normal awake and asleep EEG. No areas of focal dysfunction or epileptiform discharges were seen. An EEG without epileptiform discharges does not exclude the possibility of epilepsy. If the clinical suspicion of epilepsy remains, consider additional EEG recordings. Steph Elias MD, MPHNeurophysiology/Epilepsy AttendingCHI [facility] Hospital VALPROIC ACID LEVEL, [id number] 09:42:31 Test Item Value Reference Range Interpretation Comments VALPROIC ACID TOTAL (BEAKER) (test 76 ug/mL 50-100 code = 924) Therapeutic range for some clinical conditions may be >100 ug/mLUrinalysis w/Microscopic + Reflex to [id number] 08:43:51 Test Item Value Reference Range Interpretation Comments Color, UA (test code Yellow = 5778-6) Clarity, UA (test Clear code = 5767-9) Specific [place], UA 1.033 1.001-1.035 (test code = 5811-5) pH, UA (test code = 6.0 5.0-8.0 5803-2) Protein, UA (test 30 mg/dL Negative A code = 48298-3) Glucose, UA (test Negative Negative code = 365) Ketones, UA (test Negative Negative code = 2514-8) Bilirubin, UA (test Negative Negative code = 52617-4) Blood, UA (test code Small Negative A = 82516-0) Nitrite, UA (test Negative Negative code = 5802-4) Leukocytes, UA (test Negative Negative code = 5799-2) Urobilinogen, UA 0.2 0.2-1.0 (test code = 19555-7) RBC, UA (test code = 51 See_Comment [Autom ated 31763-8) message] The system which generated this result [...] UA See_Comment [Automate d (test code = 86187-8) messag e] The system which generated this result transmitted reference range : /HPF. The reference range was not used to interpret this result as normal/abnormal . Specimen Source (test code = 2795) LYNDSAY (test code = LYNDSAY) Platform Material Handler Manager ID - [auto]Platform Material Handler Manager ID - tech Lab Interpretation Abnormal (test code = 08035-9) [facility] HospitalUrinalysis w/Microscopic + Reflex to Culture 2023-03-30 08:43:51 Test Item Value Reference Range Interpretation Comments Color, UA (test code Yellow = 5778-6) Clarity, UA (test Clear code = 5767-9) Specific [place], UA 1.033 1.001-1.035 (test code = 5811-5) pH, UA (test code = 6.0 5.0-8.0 5803-2) Protein, UA (test 30 mg/dL Negative A code = 56378-8) Glucose, UA (test Negative Negative code = 365) Ketones, UA (test Negative Negative code = 2514-8) Bilirubin, UA (test Negative Negative code = 48649-7) Blood, UA (test code Small Negative A = 45980-2) Nitrite, UA (test Negative Negative code = 5802-4) Leukocytes, UA (test Negative Negative code = 5799-2) Urobilinogen, UA 0.2 0.2-1.0 (test code = 43906-0) RBC, UA (test code = 51 See_Comment [Autom ated 25667-4) message] The system which generated this result [...] UA See_Comment [Automate d (test code = 53597-7) messag e] The system which generated this result transmitted reference range : /HPF. The reference range was not used to interpret this result as normal/abnormal . Specimen Source (test code = 2795) LYNDSAY (test code = LYNDSAY) Platform Material Handler Manager ID - [auto]Platform Material Handler Manager ID - tech Lab Interpretation Abnormal (test code = 81642-2) [facility]inal[facility]/Microscopic + Reflex to Culture 2023-03-30 08:43:51 Test Item Value Reference Range Interpretation Comments Color, UA (test code Yellow = 5778-6) Clarity, UA (test Clear code = 5767-9) Specific [place], UA 1.033 1.001-1.035 (test code = 5811-5) pH, UA (test code = 6.0 5.0-8.0 5803-2) Protein, UA (test 30 mg/dL Negative A code = 00274-3) Glucose, UA (test Negative Negative code = 365) Ketones, UA (test Negative Negative code = 2514-8) Bilirubin, UA (test Negative Negative code = 48436-8) Blood, UA (test code Small Negative A = 90036-9) Nitrite, UA (test Negative Negative code = 5802-4) Leukocytes, UA (test Negative Negative code = 5799-2) Urobilinogen, UA 0.2 0.2-1.0 (test code = 53568-9) RBC, UA (test code = 51 See_Comment [Autom ated 59020-1) message] The system which generated this result [...] UA See_Comment [Automate d (test code = 72954-0) messag e] The system which generated this result transmitted reference range : /HPF. The reference range was not used to interpret this result as normal/abnormal . Specimen Source (test code = 2795) LYNDSAY (test code = LYNDSAY) Platform Material Handler Manager ID - [auto]Platform Material Handler Manager ID - tech Lab Interpretation Abnormal (test code = 72135-9) [facility] HospitalUrinalysis w/Microscopic + Reflex to Culture 2023-03-30 08:43:51 Test Item Value Reference Range Interpretation Comments Color, UA (test code Yellow = 5778-6) Clarity, UA (test Clear code = 5767-9) Specific [place], UA 1.033 1.001-1.035 (test code = 5811-5) pH, UA (test code = 6.0 5.0-8.0 5803-2) Protein, UA (test 30 mg/dL Negative A code = 21254-8) Glucose, UA (test Negative Negative code = 365) Ketones, UA (test Negative Negative code = 2514-8) Bilirubin, UA (test Negative Negative code = 78065-8) Blood, UA (test code Small Negative A = 34429-3) Nitrite, UA (test Negative Negative code = 5802-4) Leukocytes, UA (test Negative Negative code = 5799-2) Urobilinogen, UA 0.2 0.2-1.0 (test code = 33709-5) RBC, UA (test code = 51 See_Comment [Autom ated 33506-3) message] The system which generated this result [...] UA See_Comment [Automate d (test code = 07462-6) messag e] The system which generated this result transmitted reference range : /HPF. The reference range was not used to interpret this result as normal/abnormal . Specimen Source (test code = 2795) LYNDSAY (test code = LYNDSAY) Platform Material Handler Manager ID - [auto]Platform Material Handler Manager ID - tech Lab Interpretation Abnormal (test code = 03447-8) [facility]/Microscopic + Reflex to Culture 2023-03-30 08:43:51 Test Item Value Reference Range Interpretation Comments Color, UA (test code Yellow = 5778-6) Clarity, UA (test Clear code = 5767-9) Specific [place], UA 1.033 1.001-1.035 (test code = 5811-5) pH, UA (test code = 6.0 5.0-8.0 5803-2) Protein, UA (test 30 mg/dL Negative A code = 91961-2) Glucose, UA (test Negative Negative code = 365) Ketones, UA (test Negative Negative code = 2514-8) Bilirubin, UA (test Negative Negative code = 96614-1) Blood, UA (test code Small Negative A = 98264-8) Nitrite, UA (test Negative Negative code = 5802-4) Leukocytes, UA (test Negative Negative code = 5799-2) Urobilinogen, UA 0.2 0.2-1.0 (test code = 38932-7) RBC, UA (test code = 51 See_Comment [Autom ated 85766-7) message] The system which generated this result [...] UA See_Comment [Automate d (test code = 27356-8) messag e] The system which generated this result transmitted reference range : /HPF. The reference range was not used to interpret this result as normal/abnormal . Specimen Source (test code = 2795) LYNDSAY (test code = LYNDSAY) Platform Material Handler Manager ID - [auto]Platform Material Handler Manager ID - tech Lab Interpretation Abnormal (test code = 26122-6) [facility]/Microscopic + Reflex to Culture 2023-03-30 08:43:51 Test Item Value Reference Range Interpretation Comments Color, UA (test code Yellow = 5778-6) Clarity, UA (test Clear code = 5767-9) Specific [place], UA 1.033 1.001-1.035 (test code = 5811-5) pH, UA (test code = 6.0 5.0-8.0 5803-2) Protein, UA (test 30 mg/dL Negative A code = 19991-6) Glucose, UA (test Negative Negative code = 365) Ketones, UA (test Negative Negative code = 2514-8) Bilirubin, UA (test Negative Negative code = 58432-3) Blood, UA (test code Small Negative A = 85208-0) Nitrite, UA (test Negative Negative code = 5802-4) Leukocytes, UA (test Negative Negative code = 5799-2) Urobilinogen, UA 0.2 0.2-1.0 (test code = 01717-8) RBC, UA (test code = 51 See_Comment [Autom ated 15057-3) message] The system which generated this result [...] UA See_Comment [Automate d (test code = 48346-7) messag e] The system which generated this result transmitted reference range : /HPF. The reference range was not used to interpret this result as normal/abnormal . Specimen Source (test code = 2795) LYNDSAY (test code = LYNDSAY) Platform Material Handler Manager ID - [auto]Platform Material Handler Manager ID - tech Lab Interpretation Abnormal (test code = 03902-8) [facility] 2023-03-30 08:43:51 Test Item Value Reference Range Interpretation Comments Color, UA (test code Yellow = 5778-6) Clarity, UA (test Clear code = 5767-9) Specific [place], UA 1.033 1.001-1.035 (test code = 5811-5) pH, UA (test code = 6.0 5.0-8.0 5803-2) Protein, UA (test 30 mg/dL Negative A code = 97889-3) Glucose, UA (test Negative Negative code = 365) Ketones, UA (test Negative Negative code = 2514-8) Bilirubin, UA (test Negative Negative code = 41155-9) Blood, UA (test code Small Negative A = 03858-1) Nitrite, UA (test Negative Negative code = 5802-4) Leukocytes, UA (test Negative Negative code = 5799-2) Urobilinogen, UA 0.2 0.2-1.0 (test code = 82374-1) RBC, UA (test code = 51 See_Comment [Autom ated 41982-6) message] The system which generated this result [...] UA See_Comment [Automate d (test code = 85473-7) messag e] The system which generated this result transmitted reference range : /HPF. The reference range was not used to interpret this result as normal/abnormal . Specimen Source (test code = 2795) LYNDSAY (test code = LYNDSAY) Platform Material Handler Manager ID - [auto]Platform Material Handler Manager ID - tech Lab Interpretation Abnormal (test code = 66226-8) [facility] Culture 2023-03-30 08:43:51 Test Item Value Reference Range Interpretation Comments Color, UA (test code Yellow = 5778-6) Clarity, UA (test Clear code = 5767-9) Specific [place], UA 1.033 1.001-1.035 (test code = 5811-5) pH, UA (test code = 6.0 5.0-8.0 5803-2) Protein, UA (test 30 mg/dL Negative A code = 03459-1) Glucose, UA (test Negative Negative code = 365) Ketones, UA (test Negative Negative code = 2514-8) Bilirubin, UA (test Negative Negative code = 98951-6) Blood, UA (test code Small Negative A = 44666-2) Nitrite, UA (test Negative Negative code = 5802-4) Leukocytes, UA (test Negative Negative code = 5799-2) Urobilinogen, UA 0.2 0.2-1.0 (test code = 20601-2) RBC, UA (test code = 51 See_Comment [Autom ated 35314-9) message] The system which generated this result [...] UA See_Comment [Automate d (test code = 38067-6) messag e] The system which generated this result transmitted reference range : /HPF. The reference range was not used to interpret this result as normal/abnormal . Specimen Source (test code = 2795) LYNDSAY (test code = LYNDSAY) Platform Material Handler Manager ID - [auto]Platform Material Handler Manager ID - tech Lab Interpretation Abnormal (test code = 68414-3) [facility] Culture 2023-03-30 08:43:51 Test Item Value Reference Range Interpretation Comments Color, UA (test code Yellow = 5778-6) Clarity, UA (test Clear code = 5767-9) Specific [place], UA 1.033 1.001-1.035 (test code = 5811-5) pH, UA (test code = 6.0 5.0-8.0 5803-2) Protein, UA (test 30 mg/dL Negative A code = 78048-4) Glucose, UA (test Negative Negative code = 365) Ketones, UA (test Negative Negative code = 2514-8) Bilirubin, UA (test Negative Negative code = 72961-4) Blood, UA (test code Small Negative A = 88239-5) Nitrite, UA (test Negative Negative code = 5802-4) Leukocytes, UA (test Negative Negative code = 5799-2) Urobilinogen, UA 0.2 0.2-1.0 (test code = 94590-4) RBC, UA (test code = 51 See_Comment [Autom ated 32329-2) message] The system which generated this result [...] UA See_Comment [Automate d (test code = 68730-1) messag e] The system which generated this result transmitted reference range : /HPF. The reference range was not used to interpret this result as normal/abnormal . Specimen Source (test code = 2795) LYNDSAY (test code = LYNDSAY) Platform Material Handler Manager ID - [auto]Platform Material Handler Manager ID - tech Lab Interpretation Abnormal (test code = 45750-2) [facility] Culture 2023-03-30 08:43:51 Test Item Value Reference Range Interpretation Comments Color, UA (test code Yellow = 5778-6) Clarity, UA (test Clear code = 5767-9) Specific [place], UA 1.033 1.001-1.035 (test code = 5811-5) pH, UA (test code = 6.0 5.0-8.0 5803-2) Protein, UA (test 30 mg/dL Negative A code = 48412-0) Glucose, UA (test Negative Negative code = 365) Ketones, UA (test Negative Negative code = 2514-8) Bilirubin, UA (test Negative Negative code = 56890-1) Blood, UA (test code Small Negative A = 59180-6) Nitrite, UA (test Negative Negative code = 5802-4) Leukocytes, UA (test Negative Negative code = 5799-2) Urobilinogen, UA 0.2 0.2-1.0 (test code = 23925-4) RBC, UA (test code = 51 See_Comment [Autom ated 79695-4) message] The system which generated this result [...] UA See_Comment [Automate d (test code = 50441-3) messag e] The system which generated this result transmitted reference range : /HPF. The reference range was not used to interpret this result as normal/abnormal . Specimen Source (test code = 2795) LYNDSAY (test code = LYNDSAY) Platform Material Handler Manager ID - [auto]Platform Material Handler Manager ID - tech Lab Interpretation Abnormal (test code = 64128-4) [facility] Culture 2023-03-30 08:43:51 Test Item Value Reference Range Interpretation Comments Color, UA (test code Yellow = 5778-6) Clarity, UA (test Clear code = 5767-9) Specific [place], UA 1.033 1.001-1.035 (test code = 5811-5) pH, UA (test code = 6.0 5.0-8.0 5803-2) Protein, UA (test 30 mg/dL Negative A code = 36301-9) Glucose, UA (test Negative Negative code = 365) Ketones, UA (test Negative Negative code = 2514-8) Bilirubin, UA (test Negative Negative code = 02498-3) Blood, UA (test code Small Negative A = 92208-0) Nitrite, UA (test Negative Negative code = 5802-4) Leukocytes, UA (test Negative Negative code = 5799-2) Urobilinogen, UA 0.2 0.2-1.0 (test code = 49768-0) RBC, UA (test code = 51 See_Comment [Autom ated 00039-1) message] The system which generated this result [...] UA See_Comment [Automate d (test code = 58487-1) messag e] The system which generated this result transmitted reference range : /HPF. The reference range was not used to interpret this result as normal/abnormal . Specimen Source (test code = 2795) LYNDSAY (test code = LYNDSAY) Platform Material Handler Manager ID - [auto]Platform Material Handler Manager ID - tech Lab Interpretation Abnormal (test code = 25149-2) [facility] Reflex [facility] Culture 2023-03-30 08:43:51 Test Item Value Reference Range Interpretation Comments Color, UA (test code Yellow = 5778-6) Clarity, UA (test Clear code = 5767-9) Specific [place], UA 1.033 1.001-1.035 (test code = 5811-5) pH, UA (test code = 6.0 5.0-8.0 5803-2) Protein, UA (test 30 mg/dL Negative A code = 82631-7) Glucose, UA (test Negative Negative code = 365) Ketones, UA (test Negative Negative code = 2514-8) Bilirubin, UA (test Negative Negative code = 14019-4) Blood, UA (test code Small Negative A = 41760-2) Nitrite, UA (test Negative Negative code = 5802-4) Leukocytes, UA (test Negative Negative code = 5799-2) Urobilinogen, UA 0.2 0.2-1.0 (test code = 04848-5) RBC, UA (test code = 51 See_Comment [Autom ated 24064-3) message] The system which generated this result [...] UA See_Comment [Automate d (test code = 90940-8) messag e] The system which generated this result transmitted reference range : /HPF. The reference range was not used to interpret this result as normal/abnormal . Specimen Source (test code = 2795) LYNDSAY (test code = LYNDSAY) Platform Material Handler Manager ID - [auto]Platform Material Handler Manager ID - tech Lab Interpretation Abnormal (test code = 78382-6) [facility] Ref[facility] Culture 2023-03-30 08:43:51 Test Item Value Reference Range Interpretation Comments Color, UA (test code Yellow = 5778-6) Clarity, UA (test Clear code = 5767-9) Specific [place], UA 1.033 1.001-1.035 (test code = 5811-5) pH, UA (test code = 6.0 5.0-8.0 5803-2) Protein, UA (test 30 mg/dL Negative A code = 93580-0) Glucose, UA (test Negative Negative code = 365) Ketones, UA (test Negative Negative code = 2514-8) Bilirubin, UA (test Negative Negative code = 03699-9) Blood, UA (test code Small Negative A = 46253-8) Nitrite, UA (test Negative Negative code = 5802-4) Leukocytes, UA (test Negative Negative code = 5799-2) Urobilinogen, UA 0.2 0.2-1.0 (test code = 03283-3) RBC, UA (test code = 51 See_Comment [Autom ated 75524-5) message] The system which generated this result [...] UA See_Comment [Automate d (test code = 11458-1) messag e] The system which generated this result transmitted reference range : /HPF. The reference range was not used to interpret this result as normal/abnormal . Specimen Source (test code = 2795) LYNDSAY (test code = LYNDSAY) Platform Material Handler Manager ID - [auto]Platform Material Handler Manager ID - tech Lab Interpretation Abnormal (test code = 35435-8) [facility] [id number] 08:43:51 Test Item Value Reference Range Interpretation [...] = 516) SOURCE(BEAKER) (test code = 2795) Platform Material Handler Manager ID - [auto]Platform Material Handler Manager ID - techCOMPREHENSIVE METABOLIC [id number] 04:37:29 Test Item Value Reference Range Interpretation [...] eGFR (test code = 1092) mL/min/1.73 values S tage Description sq m Result G1 Komal l [...] not appl icable for dialysis patien ts Platform Material Handler Manager ID - MATT BPT/[id number] 04:30:17 Test Item Value Reference Range Interpretation [...] WBC 0-0 (BEAKER) (test code = 413) [id number] 00:00:00Ordered by an unspecified provider.[facility] 17:14:06 Test Item Value Reference Range Interpretation Comments MAGNESIUM (test code = 9673567530) 1.9 mg/dL 1.7-2.4 Lab Interpretation (test code = Normal 66765-3) [facility] [place]. METABOLIC PANEL (77526)2022-12-11 15:16:25 Test Item Value Reference Range Interpretation Comments NA (test code = 139 mmol/L 135-145 9211595414) K (test code = 3.5 mmol/L 3.5-5.0 5883635479) CL (test code = 107 mmol/L 98-108 8056369403) CO2 TOTAL (test code = 24 mmol/L 23-31 8771211452) AGAP (test code = 8 2-16 1706047607) BUN (test code = 9 mg/dL 7-23 3440697406) GLUCOSE (test code = 129 mg/dL 70-110 H 4219988652) CREATININE (test code = 0.68 mg/dL 0.50-1.04 5171627786) TOTAL BILI (test code = 0.5 mg/dL 0.1-1.7 8879572867) CALCIUM (test code = 8.9 mg/dL 8.6-10.6 5866418208) T PROTEIN (test code = 6.3 g/dL 6.3-8.2 2069790021) ALBUMIN (test code = 3.8 g/dL 3.5-5.0 2780123021) ALK PHOS (test code = 87 U/L 34-122 2700016285) ALTv (test code = 24 U/L 5-35 1742-6) AST(SGOT) (test code = 21 U/L 13-40 8499884341) eGFR (test code = 91.6 mL/min/1.73m2 0849764396) LYNDSAY (test code = LYNDSAY) Association of [...] tests). Lab Interpretation Abnormal (test code = 39038-2) [facility] [id number] 15:10:45 Test Item Value Reference Range Interpretation Comments TROPONIN I (test code = 0.015 ng/mL <=0.034 6173613140) LYNDSAY (test code = LYNDSAY) Reference (Normal) [...] biotin. Lab Interpretation Normal (test code = 41394-9) [facility] [id number] 15:07:48 Test Item Value Reference Range Interpretation Comments NT-proBNP (test code = 1460 pg/mL <=125 H 3166121361) LYNDSAY (test code = LYNDSAY) Biotin has been reported to cause a negative bias, interpret results relative to patient's use of biotin. Lab Interpretation (test Abnormal code = 73734-3) [facility][id number] 14:45:24 Test Item Value Reference Interpretation Comments Range D-DIMER (test code = 0.99 See_Comment H [Autom ated 9706474946) message] The system which generated this result [...] diagnosis. Lab Interpretation Abnormal (test code = 24740-2) [facility] WITH [id number] 14:14:48 Test Item Value Reference Range Interpretation Comments WBC (test code = 7.86 See_Comment [Automated 3212-2) message] The sy stem which generated this result transmitted reference range : 4.30 - 11.10 10*3/?L. The reference range was not used to interpret this result as normal/abnormal . RBC (test code = 5.13 See_Comment [Automated 450-8) message] The sy stem which generated this [...] RDW-SD (test code = 47.8 fL 39.0-49.9 72516-6) RDW-CV (test code = 16.9 % 12.0-15.5 H 788-0) PLT (test code = 507 See_Comment H [Automated 777-3) message] The sy stem which generated this result transmitted reference range : 166 - 358 10*3/ ?L. The reference r zoe was not used to interpret this result as normal/abnormal . MPV (test code = 8.2 fL 9.5-12.9 L 58442-8) NRBC/100 WBC (test 0.0 See_Comment [Automat ed code = 4428165651) message] The system which generated this result transmitted reference range : 0.0 - 10.0 /100 WBCs. The refer ence range was not u sed to interpret th is result as normal/abnormal . NRBC x10^3 (test code See_Comment [Auto mated = 2382899242) message] The s ystem which generated this result transmitted reference range : 10*3/?L. The reference range was not used to interpret this result as normal/abnormal . GRAN MAT (NEUT) % 64.5 % (test code = 770-8) IMM GRAN % (test code 0.30 % = 2093629000) LYMPH % (test code = 25.6 % 736-9) MONO % (test code = 7.5 % 5905-5) EOS % (test code = 1.0 % 713-8) BASO % (test code = 1.1 % 706-2) GRAN MAT x10^3(ANC) 5.07 10*3/uL 1.88-7.09 (test code = 9111446903) IMM GRAN x10^3 (test 0.00-0.06 code = 3480160188) LYMPH x10^3 (test code 2.01 10*3/uL 1.32-3.29 = 731-0) MONO x10^3 (test code 0.59 10*3/uL 0.33-0.92 = 742-7) EOS x10^3 (test code = 0.08 10*3/uL 0.03-0.39 711-2) BASO x10^3 (test code 0.09 10*3/uL 0.01-0.07 H = 704-7) Lab Interpretation Abnormal (test code = 11705-1) [facility] 13:17:22 Test Item Value Reference Range Interpretation Comments RPR SCREEN ([employer] (test code = Nonreactive Nonreactive 420) HEMOGLOBIN [id number] 10:39:49 Test Item Value Reference Range Interpretation Comments HEMOGLOBIN A1C 5.8 % See_Comment H [Automated m essage] ELECTROPHORESIS ([facility]) The system which (test code = 3811) generated this result transmitted ref erence range: <=5.6%. The reference range was not used to int erpret this result as normal/abnormal . "The A1c is measured using a [facility]-certified method. HbA1c value equal to or greater than 6.5% as thediagnosis cutoff for diabetes. An HbA1c value of 5.7- 6.4% indicates increased risk for diabetes (prediabetes)."Platform Material Handler Manager ID - ADM VITAMIN [id number] 22:48:27 Test Item Value Reference Range Interpretation Comments VITAMIN B12 ([employer] (test code = 227 pg/mL 213-816 774) Platform Material Handler Manager ID - MARCOTSH/FREE T4 IF [id number] 22:08:28 Test Item Value Reference Range Interpretation Comments THYROID STIMULATING HORMONE 3.309 uIU/mL 0.350-4.940 ([employer] (test code = 772) Platform Material Handler Manager ID - JSHIV-1 ANTIGEN WITH HIV-1/2 [id number] 22:08:28 Test Item Value Reference Range Interpretation Comments HIV-1 ANTIGEN WITH HIV 1\\T\\2 Nonreactive Nonreactive ANTIBODY (2) ([employer] (test code = 2586) Platform Material Handler Manager ID - JSC-REACTIVE [id number] 21:49:44 Test Item Value Reference Range Interpretation Comments C-REACTIVE PROTEIN ([employer] (test 0.35 mg/dL 0.00-0.50 code = 676) Platform Material Handler Manager ID - JSCOMPREHENSIVE METABOLIC [id number] 21:49:43 Test Item Value Reference Range Interpretation Comments TOTAL PROTEIN 7.1 gm/dL 6.0-8.3 ([employer] (test code = 770) ALBUMIN ([employer] 4.2 g/dL 3.5-5.0 (test code = 1145) ALKALINE 74 U/L 40-150 PHOSPHATASE ([employer] (test code = 346) BILIRUBIN TOTAL 0.3 [...] not appl icable for dialysis patien ts Platform Material Handler Manager ID - JSLIPID [id number] 21:49:43 Test Item Value Reference Range Interpretation Comments TRIGLYCERIDES (BEAKER) (test code = 161 mg/dL 540) CHOLESTEROL (BEAKER) (test code = 149 mg/dL 631) HDL CHOLESTEROL (BEAKER) (test code 43 mg/dL = 976) LDL CHOLESTEROL CALCULATED (BEAKER) 74 mg/dL (test code = 633) Triglyceride Reference Range: Low Risk <150 Borderline 150-199 High Risk 200-499 Very High Risk >=500Cholesterol Reference Range: Low Risk <200 Borderline 200-239 High Risk >240HDL Cholesterol Reference Range: Low Risk >=60 High Risk <40LDL Cholesterol Reference Range: Optimal <100 Near Optimal 100-129 Borderline 130-159 High 160-189 Very High >=190 Platform Material Handler Manager ID - JSCBC W/PLT COUNT & AUTO [id number] 21:34:03 Test Item Value Reference Range Interpretation [...] Interpretation Comments Height (test code = in 4902762675) Weight (test code = lbs 2932328437) Systolic BP (test code = mmHg 6986331562) Diastolic BP (test code mmHg = 5201802949) Heart Rate (test code = bpm 5495864844) BSA (test code = 2.00 m2 2672776242) Ao root diam (test code 3.20 cm = 0590496259) Aortic root (test code = 3.2 cm 6642604414) Ao root annulus (test 3.2 cm code = 5465048470) LVOT diameter (test code 1.99 cm = 3566566185) LVOT area (test code = 3.10 cm2 6417042301) LVIDD (test code = 5.10 cm 5710982744) Left Ventricular End 123.0 mL Diastolic Volume by Teichholz Method (test code = 8485547) IVS (test code = 1.34 cm 0539840792) Interventricular Septum 1.34 cm Diastolic Thickness by 2D (test code = 9589812) LVPWD (test code = 1.34 cm 9265328543) PW (test code = 1.34 cm 0.6-1.6 7571437045) EF(Teich) (test code = 41.80 % 7734767670) LVIDS (test code = 4.00 cm 5366210594) Left Ventricular End 71.5 mL Systolic Volume by Teichholz Method (test code = 6615812) FS (test code = 21 % 8302605419) EF - 2D (test code = 41.80 % 72754954) LA size (test code = 4.6 cm 9834377290) Pulmonic Regurgitant End 119.4 cm/s Max Velocity (test code = 6252127698) LAV(MOD-sp4) (test code 95.00 mL = 8088291717) E wave decelartion time 0.15 s (test code = 9526848379) MV stenosis pressure 1/2 45.6 ms time (test code = 0323069428) MV Peak A Evette (test code 123.8 cm/s = 8082067943) MV Peak E Evette (test code 109.7 cm/s = 2490208896) E/A ratio (test code = ratio 3351068639) MR max PG (test code = 87.20 mm[Hg] 3015881234) MR max evette (test code = 466.90 cm/s 4150384148) Mr max evette (test code = 466.9 m/s 3933983338) MV Prop V (test code = 51.00 cm/s 3836436707) MV E/e' septal (test 8.1 cm/s code = 9838889249) Tapse (test code = 2.21 cm 1228405943) LVOT stroke volume (test 49.80 cm3 code = 7013581514) LVOT peak evette (test code 89.1 cm/s = 5395776802) LVOT mn grad (test code mmHg = 6397877875) AV LVOT peak gradient mmHg (test code = 2345732061) LVOT peak VTI (test code 16.0 cm = 4399996531) LV V1 mean (test code = 64.30 cm/s 2127452432) Aortic valve mean 133.8 cm/s velocity (test code = 0430358162) Ao peak evette (test code = 175.3 cm/s 4215707137) Ao VTI (test code = 32.2 cm 8932620494) AV area by cont VTI 1.6 cm2 (test code = 2190183533) AV area peak evette (test 1.6 cm2 code = 6893139020) Ao max PG (test code = 12.30 mm[Hg] 7798850163) AV peak gradient (test mmHg code = 0076938250) AV valve area (test code 1.55 cm2 = 0142970996) AV mean gradient (test mmHg code = 2032506038) AV regurgitation 358.5 ms pressure 1/2 time (test code = 7248943611) AI dec slope (test code 364.20 cm/s2 = 5192809214) AI max evette (test code = 445.80 cm/s 5292274359) AI max PG (test code = 79.50 mm[Hg] 2973131053) Radiology Study observation (narrative) (test code = 34018-0) LYNDSAY (test code = LYNDSAY) ?Left?Ventricle: Left [...] mL of Lumason ultrasound enhancing agent used. [facility]2022-[facility]-01 10:43:32 Test Item Value Reference Range Interpretation Comments POCT GLU (test code = 4339642152) 148 mg/dL 70-110 H Lab Interpretation (test code = Abnormal 91455-8) [facility]ACT[facility] THRMPLAS [id number] 18:39:45 Test Item Value Reference Range Interpretation Comments APTT Patient (test See_Comment [Automat ed code = 3173-2) message] The system which generated this result transmitted reference range : 23 - 38 Seconds . The reference range was not used to interpr et this result as normal/abnormal . LYNDSAY (test code = LYNDSAY) The [facility] patient population mean normal value for aPTT is 30 seconds. Lab Interpretation Normal (test code = 90086-4) [facility]anoPROTHROMBIN TIME / [id number] 18:37:42 Test Item Value Reference Range Interpretation [...] tions. Lab Interpretation (test Normal code = 92112-0) [facility] [id number] 18:32:01 Test Item Value Reference Interpretation Comments Range TROPONIN I (test 0.019 ng/mL See_Comment [Automated code = 8459511624) message] The system which generated this result [...] biotin. Lab Interpretation Normal (test code = 72343-3) [facility] [id number] 18:29:01 Test Item Value Reference Range Interpretation Comments NT-proBNP (test code 2770 pg/mL See_Comment H [Autom ated = 6773426174) message] The system which generated this result transmitted reference range : <=125. The reference range was not used to interpret this result as normal/abnormal . LYNDSAY (test code = LYNDSAY) Biotin has been reported to cause a negative bias, interpret results relative to patient's use of biotin. Lab Interpretation Abnormal (test code = 61710-2) [facility] [place]. METABOLIC PANEL (68578)2022-07-31 18:21:42 Test Item Value Reference Range Interpretation Comments NA (test code = 136 mmol/L 135-145 9849011020) K (test code = 4.6 mmol/L 3.5-5.0 0394991476) CL (test code = 104 mmol/L 98-108 9100431457) CO2 TOTAL (test code = 26 mmol/L 23-31 6203347227) AGAP (test code = 2-16 0460728584) BUN (test code = 9 mg/dL 7-23 2258448142) GLUCOSE (test code = 97 mg/dL 70-110 6902080567) CREATININE (test code = 0.64 mg/dL 0.50-1.04 4786565129) TOTAL BILI (test code = 0.5 mg/dL 0.1-1.8 4293873991) CALCIUM (test code = 8.2 mg/dL 8.6-10.6 L 6371584461) T PROTEIN (test code = 6.5 g/dL 6.3-8.2 7177264811) ALBUMIN (test code = 3.9 g/dL 3.5-5.0 1056464813) ALK PHOS (test code = 93 U/L 34-122 5949838670) ALTv (test code = 18 U/L 5-35 1742-6) AST(SGOT) (test code = 19 U/L 13-40 4638318934) eGFR (test code = mL/min/1.73m2 6649586993) LYNDSAY (test code = LYNDSAY) Association of [...] tests). Lab Interpretation Abnormal (test code = 73441-7) [facility] 18:21:01 Test Item Value Reference Range Interpretation Comments LIPASE (test code = 4523939758) 54 U/L 0-220 Lab Interpretation (test code = Normal 01638-2) [facility]CB WITH [id number] 18:07:00 Test Item Value Reference Range Interpretation Comments WBC (test code = See_Comment [Automated 9653-2) message] The sy stem which generated this result transmitted reference range : 4.30 - 11.10 10*3/?L. The reference range was not used to interpret this result as normal/abnormal . RBC (test code = See_Comment [Automated 197-5) message] The sy stem which generated this [...] (test code = 53.1 fL 39.0-49.9 H 59376-8) RDW-CV (test code = 17.0 % 12.0-15.5 H 788-0) PLT (test code = See_Comment H [Automated 777-3) message] The sy stem which generated this result transmitted reference range : 166 - 358 10*3/ ?L. The reference r zoe was not used to interpret this result as normal/abnormal . MPV (test code = 8.2 fL 9.5-12.9 L 64225-5) NRBC/100 WBC (test See_Comment [Automat ed code = 3691204977) message] The system which generated this result transmitted reference range : 0.0 - 10.0 /100 WBCs. The refer ence range was not u sed to interpret th is result as normal/abnormal . NRBC x10^3 (test code See_Comment [Auto mated = 3599811700) message] The s ystem which generated this result transmitted reference range : 10*3/?L. The reference range was not used to interpret this result as normal/abnormal . GRAN MAT (NEUT) % 64.0 % (test code = 770-8) IMM GRAN % (test code 0.40 % = 6504989211) LYMPH % (test code = 27.3 % 736-9) MONO % (test code = 6.5 % 5905-5) EOS % (test code = 1.1 % 713-8) BASO % (test code = 0.7 % 706-2) GRAN MAT x10^3(ANC) 5.46 10*3/uL 1.88-7.09 (test code = 6475651025) IMM GRAN x10^3 (test 0.03 10*3/uL 0.00-0.06 code = 6366446406) LYMPH x10^3 (test code 2.32 10*3/uL 1.32-3.29 = 731-0) MONO x10^3 (test code 0.55 10*3/uL 0.33-0.92 = 742-7) EOS x10^3 (test code = 0.09 10*3/uL 0.03-0.39 711-2) BASO x10^3 (test code 0.06 10*3/uL 0.01-0.07 = 704-7) Lab Interpretation Abnormal (test code = 28680-2) [facility] METABOLIC PANEL (NA, K, CL, CO2, GLUCOSE, BUN, CREATININE, CA)2022-05-08 06:37:01 Test Item Value Reference Range Interpretation Comments NA (test code = 137 mmol/L 135-145 9832294502) K (test code = 3.8 mmol/L 3.5-5 0524017545) CL (test code = 103 mmol/L 98-108 1655176134) CO2 TOTAL (test code = 24 mmol/L 23-31 1292487530) AGAP (test code = 2-16 1857406181) BUN (test code = 13 mg/dL 7-23 7660722811) GLUCOSE (test code = 90 mg/dL 70-110 2386811599) CREATININE (test code = 0.69 mg/dL 0.5-1.04 4909057992) CALCIUM (test code = 8.5 mg/dL 8.6-10.6 L 6292054535) eGFR (test code = mL/min/1.73m2 7620797681) LYNDSAY (test code = LYNDSAY) Association of [...] tests). Lab Interpretation Abnormal (test code = 23696-4) [facility]01 Test Item Value Reference Range Interpretation Comments MAGNESIUM (test code = 6663856745) 2.1 mg/dL 1.7-2.4 Lab Interpretation (test code = Normal 68660-5) [facility]2022-[facility]-20 06:37:01 Test Item Value Reference Range Interpretation Comments PHOSPHORUS (test code = 8518584501) 4.7 mg/dL 2.5-5 Lab Interpretation (test code = Normal 40057-3) [facility] WITH [id number] 06:11:54 Test Item Value Reference Range Interpretation Comments WBC (test code = See_Comment [Automated 5490-2) message] The sy stem which generated this result transmitted reference range : 4.30 - 11.10 10*3/?L. The reference range was not used to interpret this result as normal/abnormal . RBC (test code = See_Comment [Automated 182-8) message] The sy stem which generated this [...] (test code = 51.0 fL 39-49.9 H 80884-1) RDW-CV (test code = 16.5 % 12-15.5 H 788-0) PLT (test code = See_Comment H [Automated 777-3) message] The sy stem which generated this result transmitted reference range : 166 - 358 10*3/ ?L. The reference r zoe was not used to interpret this result as normal/abnormal . MPV (test code = 8.3 fL 9.5-12.9 L 84153-1) NRBC/100 WBC (test See_Comment [Automat ed code = 4424729190) message] The system which generated this result transmitted reference range : 0.0 - 10.0 /100 WBCs. The refer ence range was not u sed to interpret th is result as normal/abnormal . NRBC x10^3 (test code See_Comment [Auto mated = 1088394349) message] The s ystem which generated this result transmitted reference range : 10*3/?L. The reference range was not used to interpret this result as normal/abnormal . GRAN MAT (NEUT) % 64.5 % (test code = 770-8) IMM GRAN % (test code 0.50 % = 0625367338) LYMPH % (test code = 27.1 % 736-9) MONO % (test code = 6.6 % 5905-5) EOS % (test code = 0.6 % 713-8) BASO % (test code = 0.7 % 706-2) GRAN MAT x10^3(ANC) 5.28 10*3/uL 1.88-7.09 (test code = 4242666818) IMM GRAN x10^3 (test 0.04 10*3/uL 0-0.06 code = 1925196238) LYMPH x10^3 (test code 2.22 10*3/uL 1.32-3.29 = 731-0) MONO x10^3 (test code 0.54 10*3/uL 0.33-0.92 = 742-7) EOS x10^3 (test code = 0.05 10*3/uL 0.03-0.39 711-2) BASO x10^3 (test code 0.06 10*3/uL 0.01-0.07 = 704-7) Lab Interpretation Abnormal (test code = 45660-9) [facility]2022-[facility]-07 01:18:10 Test Item Value Reference Range Interpretation Comments POCT GLU (test code = 9453733671) 120 mg/dL 70-110 H Lab Interpretation (test code = Abnormal 54716-8) [facility]anoType [facility] Screen - ONCE [id number] 05:46:35 Test Item Value Reference Range Interpretation Comments ABO & RH (test code O POSITIVE Performe d at [facility] = 20) Laboratory [facility] Blood [facility] [address] [place] [address] s [address]Hfnp Free: [phone] A No. [id number] IAT (test code = Negative Performed a t [facility] 1185) [facility] Blood [facility] [address] [place] [address] s [address]Qaby Free: [phone] A No. [id number] [facility] (NA, K, CL, CO2, GLUCOSE, BUN, CREATININE, CA)2022-05-05 08:22:57 Test Item Value Reference Range Interpretation Comments NA (test code = 136 mmol/L 135-145 1803323643) K (test code = 4.9 mmol/L 3.5-5 2171521163) CL (test code = 108 mmol/L 98-108 3632006168) CO2 TOTAL (test code = 22 mmol/L 23-31 L 3566970917) AGAP (test code = 2-16 5782000623) BUN (test code = 12 mg/dL 7-23 7924715340) GLUCOSE (test code = 155 mg/dL 70-110 H 3341545024) CREATININE (test code = 0.63 mg/dL 0.5-1.04 8621673500) CALCIUM (test code = 8.4 mg/dL 8.6-10.6 L 8545137476) eGFR (test code = mL/min/1.73m2 5152127829) LYNDSAY (test code = LYNDSAY) Association of [...] tests). Lab Interpretation Abnormal (test code = 67633-0) [facility]anoPROTHROMBIN TIME / [id number] 08:22:37 Test Item Value Reference Range Interpretation Comments PROTIME PATIENT (test See_Comment [Auto mated message] code = 5964-2) The system [employer] generated this result transmitted ref erence range: 10.1 - 1 2.6 Seconds. The re ference range was not u sed to interpret this result as normal/abnor mal. INR (test code = 6301-6) Nor mal INR <1.1; Warfarin Therap eutic range 2.0 to 3. 0 or 2.5 to 3.5, dep ending upon the indica tions. Lab Interpretation (test Normal code = 15775-5) [facility]2022-[facility]-17 08:22:37 Test Item Value Reference Range Interpretation Comments APTT Patient (test code = See_Comment [ Automated message] 3173-2) [facility] transmitted ref erence range: 26 - 36 Seconds. The re ference range was not u sed to interpret this result as normal/abnor mal. Lab Interpretation (test Normal code = 06904-2) [facility]IB[facility]EN2022-10-17 08:22:37 Test Item Value Reference Range Interpretation Comments Fibrinogen (test code = 8434203107) 294 mg/dL 167-453 Lab Interpretation (test code = Normal 16864-3) [facility] WITH [id number] 08:15:01 Test Item Value Reference Range Interpretation Comments WBC (test code = See_Comment [Automated 6390-2) message] The sy stem which generated this [...] (test code = 52.9 fL 39-49.9 H 07062-5) RDW-CV (test code = 16.8 % 12-15.5 H 788-0) PLT (test code = See_Comment H [Automated 777-3) message] The sy stem which generated this result transmitted reference range : 166 - 358 10*3/ ?L. The reference r zoe was not used to interpret this result as normal/abnormal . MPV (test code = 8.3 fL 9.5-12.9 L 90661-6) NRBC/100 WBC (test See_Comment [Automat ed code = 2281739691) message] The system which generated this result transmitted reference range : 0.0 - 10.0 /100 WBCs. The refer ence range was not u sed to interpret th is result as normal/abnormal . NRBC x10^3 (test code See_Comment [Auto mated = 9227913309) message] The s ystem which generated this result transmitted reference range : 10*3/?L. The reference range was not used to interpret this result as normal/abnormal . GRAN MAT (NEUT) % 86.4 % (test code = 770-8) IMM GRAN % (test code 0.40 % = 6976191752) LYMPH % (test code = 11.7 % 736-9) MONO % (test code = 1.1 % 5905-5) EOS % (test code = 0.0 % 713-8) BASO % (test code = 0.4 % 706-2) GRAN MAT x10^3(ANC) 6.36 10*3/uL 1.88-7.09 (test code = 4668263917) IMM GRAN x10^3 (test 0.03 10*3/uL 0-0.06 code = 7547155029) LYMPH x10^3 (test code 0.86 10*3/uL 1.32-3.29 L = 731-0) MONO x10^3 (test code 0.08 10*3/uL 0.33-0.92 L = 742-7) EOS x10^3 (test code = 0.03-0.39 L 711-2) BASO x10^3 (test code 0.03 10*3/uL 0.01-0.07 = 704-7) Lab Interpretation Abnormal (test code = 60665-8) [facility]anoVIT[facility], [id number] 20:14:03 Test Item Value Reference Range Interpretation Comments VIT D 25OH (test code = 22 ng/mL 25-80 L 57700-0) LYNDSAY (test code = LYNDSAY) Deficiency: <20 ng/mLInsufficiency: 20-24 ng/mLOptimal: 25-80 ng/mL Lab Interpretation (test Abnormal code = 43640-0) [facility] (NA, K, CL, CO2, GLUCOSE, BUN, CREATININE, CA)2022-04-15 11:27:57 Test Item Value Reference Range Interpretation Comments NA (test code = 138 mmol/L 135-145 3305210195) K (test code = 3.9 mmol/L 3.5-5 6056120984) CL (test code = 106 mmol/L 98-108 8192449708) CO2 TOTAL (test code = 23 mmol/L 23-31 7973334158) AGAP (test code = 2-16 5671427223) BUN (test code = 10 mg/dL 7-23 3700792564) GLUCOSE (test code = 91 mg/dL 70-110 6901667830) CREATININE (test code = 0.65 mg/dL 0.5-1.04 3171724106) CALCIUM (test code = 8.1 mg/dL 8.6-10.6 L 2645662072) eGFR (test code = mL/min/1.73m2 7663390849) LYNDSAY (test code = LYNDSAY) Association of [...] tests). Lab Interpretation Abnormal (test code = 77209-8) [facility] Protocol - Transthoracic echo (TTE) 2022-04-14 22:07:33 Test Item Value Reference Range Interpretation Comments Height (test code = in 4470736476) Weight (test code = lbs 9234948392) Systolic BP (test code = mmHg 4654257914) Diastolic BP (test code mmHg = 1925155182) Heart Rate (test code = bpm 3123982196) BSA (test code = 1.94 m2 4533345747) TASV (test code = 15.5 cm/s 0749180701) LVIDD (test code = 6.00 cm 4371902439) Left Ventricular End 183.0 mL Diastolic Volume by Teichholz Method (test code = 5186353) IVS (test code = 1.09 cm 9799731699) Interventricular Septum 1.09 cm Diastolic Thickness by 2D (test code = 3831954) LVPWD (test code = 0.94 cm 6030848384) PW (test code = 0.94 cm 0.6-1.6 0836158535) EF(Teich) (test code = 40.30 % 8754105666) LVIDS (test code = 4.80 cm 0337733383) Left Ventricular End 109.2 mL Systolic Volume by Teichholz Method (test code = 6123832) FS (test code = 20 % 2200226120) EF - 2D (test code = 40.30 % 42966392) LVOT diameter (test code 2.05 cm = 8144531667) LVOT area (test code = 3.30 cm2 3501092189) Ao root diam (test code 3.10 cm = 0250625257) Aortic root (test code = 3.1 cm 7871971024) Ao root annulus (test 3.1 cm code = 1622044623) LA size (test code = 4.2 cm 0281133240) LAV(MOD-sp4) (test code 64.90 mL = 1843226399) MV Peak A Evette (test code 115.7 cm/s = 3574659942) E wave decelartion time 0.15 s (test code = 5151729989) MV Peak E Evette (test code 106.2 cm/s = 0713941324) E/A ratio (test code = ratio 2962847067) LVOT stroke volume (test 48.30 cm3 code = 3971571122) LVOT peak evette (test code 78.4 cm/s = 2803303904) LVOT mn grad (test code mmHg = 8283001317) AV LVOT peak gradient mmHg (test code = 6023100207) LVOT peak VTI (test code 14.7 cm = 2779290025) LV V1 mean (test code = 51.40 cm/s 6495399092) Ao peak evette (test code = 154.7 cm/s 8950483513) AV area peak evette (test 1.7 cm2 code = 4855091591) Ao max PG (test code = 9.60 mm[Hg] 0709837870) AV peak gradient (test mmHg code = 9805473527) AV regurgitation 257.3 ms pressure 1/2 time (test code = 8563654298) AI dec slope (test code 498.10 cm/s2 = 9212401684) AI max evette (test code = 437.60 cm/s 8748540003) AI max PG (test code = 77.80 mm[Hg] 2165872077) Tapse (test code = 2.19 cm 3692337574) LA Volume Index (BP) 32.0 mL/m2 (test code = 0877475097) LA volume (BP) (test 62.1 mL code = 1712578063) LAV(MOD-sp2) (test code 52.70 mL = 3468405536) A4C EF (test code = 44.80 % 0731090156) EF(sp4-el) (test code = 45.20 % 0137092325) SV(MOD-sp4) (test code = 71.20 mL 7760685004) SV(sp4-el) (test code = 73.90 mL 0533177824) LV Diastolic Volume (BP) 146.3 mL (test code = 2912448389) A2C EF (test code = 52.00 % 9770179988) EF(MOD-bp) (test code = 46.70 % 9372918882) EF(sp2-el) (test code = 52.40 % 0374670221) LV Systolic Volume (BP) 77.9 mL (test code = 8587837337) SV(MOD-bp) (test code = 68.40 mL 6765532458) SV(MOD-sp2) (test code = 69.20 mL 3503437630) EF (test code = 0510898842) Left Ventricular Stroke 68.4 mL Volume by 2-D Biplane-MOD (test code = 7264124) Radiology Study observation (narrative) (test code = 01811-5) LYNDSAY (test code = LYNDSAY) ?Left?Ventricle: Left [...] agent used and saline contrast was performed. [facility]KEPPR[facility] (LEVETIRACETAM)2022-04-14 16:48:36 Test Item Value Reference Range Interpretation Comments KEPPRA (test code = 12-46 L 3277770293) LYNDSAY (test code = LYNDSAY) Therapeutic range: 12-46 ?g/mL ? ?Toxic: Not well established.Test developed and characteristics determined by [facility] Laboratory Services. Lab Interpretation Abnormal (test code = 65438-0) [facility] (Na, K, Cl, CO2, Glucose, BUN, Creatinine, Ca)2022-04-14 10:50:11 Test Item Value Reference Range Interpretation Comments NA (test code = 136 mmol/L 135-145 7427376540) K (test code = 3.8 mmol/L 3.5-5 3251873598) CL (test code = 105 mmol/L 98-108 5472023242) CO2 TOTAL (test code = 25 mmol/L 23-31 4032125712) AGAP (test code = 2-16 1349620144) BUN (test code = 9 mg/dL 7-23 7044858862) GLUCOSE (test code = 101 mg/dL 70-110 1526811582) CREATININE (test code = 0.66 mg/dL 0.5-1.04 0283019543) CALCIUM (test code = 8.1 mg/dL 8.6-10.6 L 7132866393) eGFR (test code = mL/min/1.73m2 9216597874) LYNDSAY (test code = LYNDSAY) Association of [...] tests). Lab Interpretation Abnormal (test code = 36701-5) [facility]anoMagensium, [id number] 10:50:11 Test Item Value Reference Range Interpretation Comments MAGNESIUM (test code = 7533360480) 1.9 mg/dL 1.7-2.4 Lab Interpretation (test code = Normal 94451-6) [facility]anoThyroid Stimulating Vvqzdbd7786-33-80 22:21:44 Test Item Value Reference Range Interpretation Comments TSH (test code = See_Comment Biotin has been 3662366838) reported to cau se a negative bias, interpret resul ts relative to autumn higiniomanjinder's use of biotin. [Automated mess age] The system [employer] generated this result transmitted ref erence range: 0.45 - 4 .70 mIU/L. The refe rence range was not u sed to interpret this result as normal/abnor mal. Lab Interpretation (test Normal code = 35163-4) [facility]anoGLYCOSYLATED HEMOGLOBIN (A1C)2022-04-13 21:53:43 Test Item Value Reference Range Interpretation Comments HGB A1C (test code = 5.8 % 4-5.7 H 4548-4) LYNDSAY (test code = LYNDSAY) Reference RangesNormal: <5.7%Prediabetes: 5.7 - 6.4%Diabetes: > 6.5% Lab Interpretation (test Abnormal code = 32315-7) [facility] (07115)(TOTAL CHOLESTEROL, TRIGLYCERIDES, HDL)2022-04-13 21:34:53 Test Item Value Reference Range Interpretation Comments CHOL (test code = 201 mg/dL 120-200 H 7511621970) HDL (test code = 56 mg/dL See_Comment [Automated message] 4012310463) The system [employer] generated this result transmit sherice reference range : >=50. The refer ence range was not u sed to interpret th is result as normal/abnormal . HDLC RATIO (test code = See_Comment [Au tomated message] 1551884686) The system [employer] generated this result transmit sherice reference range : <=4.5. The refe rence range was not u sed to interpret th is result as normal/abnormal . TRIG (test code = 355 mg/dL 30-170 H 1935873194) LDL CHOL (test code = 74 mg/dL See_Comment [Auto mated message] 14601-2) The system [employer] generated this result transmit sherice reference range : <=160. The refe rence range was not u sed to interpret th is result as normal/abnormal . VLDL (test code = 71 mg/dL 5-60 H 6489200542) Lab Interpretation (test Abnormal code = 97398-8) [facility]anoTroponin I - Code Nizzks1510-62-75 18:46:27 Test Item Value Reference Interpretation Comments Range TROPONIN I (test 0.013 ng/mL See_Comment [Automated code = 4825170083) message] The system which generated this result [...] biotin. Lab Interpretation Normal (test code = 99951-5) [facility] Metabolic Panel (NA, K, CL, CO2, Glucose, BUN, Creatinine, CA) - Code [id number] 18:35:07 Test Item Value Reference Range Interpretation Comments NA (test code = 136 mmol/L 135-145 1376734110) K (test code = 4.3 mmol/L 3.5-5 9891929350) CL (test code = 105 mmol/L 98-108 9099239731) CO2 TOTAL (test code = 27 mmol/L 23-31 0972461331) AGAP (test code = 2-16 9225343309) BUN (test code = 8 mg/dL 7-23 9913545953) GLUCOSE (test code = 130 mg/dL 70-110 H 9917487586) CREATININE (test code = 0.75 mg/dL 0.5-1.04 9473515880) CALCIUM (test code = 8.5 mg/dL 8.6-10.6 L 2628591552) eGFR (test code = mL/min/1.73m2 1371884193) LYNDSAY (test code = LYNDSAY) Association of [...] tests). Lab Interpretation Abnormal (test code = 21802-5) [facility]aP[facility] - Code Zeojvb2498-51-62 18:32:46 Test Item Value Reference Range Interpretation Comments APTT Patient (test See_Comment [Automat ed code = 3173-2) message] The system which generated this result transmitted reference range : 23 - 38 Seconds . The reference range was not used to interpr et this result as normal/abnormal . LYNDSAY (test code = LYNDSAY) The [facility] patient population mean normal value for aPTT is 30 seconds. Lab Interpretation Normal (test code = 82730-5) [facility]anoProthrombin Time / INR - Code [id number] 18:30:45 Test Item Value Reference Range Interpretation Comments PROTIME PATIENT (test See_Comment [Auto mated message] code = 5964-2) The system [employer] generated this result transmitted ref erence range: 12.0 - 1 4.7 Seconds. The re ference range was not u sed to interpret this result as normal/abnor mal. INR (test code = 6301-6) Nor mal INR <1.1; Warfarin Therap eutic range 2.0 to 3. 0 or 2.5 to 3.5, dep ending upon the indica tions. Lab Interpretation (test Normal code = 44180-9) [facility]anoCBC without Diff - Code [id number] 18:23:07 Test Item Value Reference Range Interpretation Comments WBC (test code = 6690-2) See_Comment [A utomated message] The system [employer] generated this result transmit sherice reference range : 4.30 - 11.10 10*3/?L. The reference range was not used to interpret this result as normal/abnormal . RBC (test code = 789-8) See_Comment [Au tomated message] The system [employer] generated this result transmit sherice reference [...] See_Comment H [Au tomated message] The system [facility] [employer] generated this result transmit sherice reference range : 166 - 358 10*3/?L. The reference range was not used to interpret this result as normal/abnormal . MPV (test code = 8.1 fL 9.5-12.9 L 97966-6) RDW-CV (test code = 16.1 % 12-15.5 H 788-0) RDW-SD (test code = 49.2 fL 39-49.9 36872-6) NRBC x10^3 (test code = See_Comment [Au tomated message] 7411932326) The system [facility] generated this result transmit sherice reference range : 10*3/?L. The reference range was not used to interpret this result as normal/abnormal . NRBC/100 WBC (test code See_Comment [Au tomated message] = 5628216932) The system [facility] generated this result transmit sherice reference range : 0.0 - 10.0 /100 WBC s. The reference r zoe was not used to interpret this result as normal/abnormal . IPF % (test code = 9203655575) Lab Interpretation (test Abnormal code = 96355-5) [facility] [id number] 21:06:40 Test Item Value Reference Interpretation Comments Range TROPONIN I (test 0.005 ng/mL See_Comment [Automated code = 0825206043) message] The system which generated this result [...] biotin. Lab Interpretation Normal (test code = 13805-9) [facility]. METABOLIC PANEL (13589)2021-11-23 20:55:42 Test Item Value Reference Range Interpretation Comments NA (test code = 137 mmol/L 135-145 0068771321) K (test code = 4.3 mmol/L 3.5-5.0 3981933542) CL (test code = 104 mmol/L 98-108 9216498125) CO2 TOTAL (test code = 22 mmol/L 23-31 L 6435403624) AGAP (test code = 2-16 3844516586) BUN (test code = 15 mg/dL 7-23 1244678469) GLUCOSE (test code = 114 mg/dL 70-110 H 2816564059) CREATININE (test code = 0.68 mg/dL 0.50-1.04 4634036627) TOTAL BILI (test code = 0.5 mg/dL 0.1-1.0 2525284419) CALCIUM (test code = 9.1 mg/dL 8.6-10.6 8927669984) T PROTEIN (test code = 7.3 g/dL 6.3-8.2 0776560428) ALBUMIN (test code = 4.4 g/dL 3.5-5.0 5343110851) ALK PHOS (test code = 243 U/L 34-122 H 2094727010) ALTv (test code = 24 U/L 5-35 1742-6) AST(SGOT) (test code = 30 U/L 13-40 4437675946) eGFR (test code = mL/min/1.73m2 3865749829) LYNDSAY (test code = LYNDSAY) Association of [...] tests). Lab Interpretation Abnormal (test code = 80177-1) [facility]anoLIPASE20[facility] 20:55:22 Test Item Value Reference Range Interpretation Comments LIPASE (test code = 2603570434) 96 U/L 0-220 Lab Interpretation (test code = Normal 73808-8) [facility]anoPOCT [id number] 20:46:00 Test Item Value Reference Range Interpretation Comments POCT PREG (test code = 1605) negative On board controls acceptable with present C Line (test code = 3574) POCT PREG LOT # (test code = 3575) [id number] POCT PREG TEST DATE (test 04/18/2023 code = 3576) Lab Interpretation (test code = Normal 06635-4) [facility]anoCB WITH [id number] 20:40:38 Test Item Value Reference Range Interpretation [...] (test code = 53.7 fL 39.0-49.9 H 27657-3) RDW-CV (test code = 17.2 % 12.0-15.5 H 788-0) PLT (test code = See_Comment H [Automated 777-3) message] The sy stem which generated this result transmitted reference range : 166 - 358 10*3/ ?L. The reference r zoe was not used to interpret this result as normal/abnormal . MPV (test code = 8.5 fL 9.5-12.9 L 36815-7) NRBC/100 WBC (test See_Comment [Automat ed code = 2038257076) message] The system which generated this result transmitted reference range : 0.0 - 10.0 /100 WBCs. The refer ence range was not u sed to interpret th is result as normal/abnormal . NRBC x10^3 (test code <0.01 See_Comment [Auto mated = 4003867743) message] The s ystem which generated this result transmitted reference range : 10*3/?L. The reference range was not used to interpret this result as normal/abnormal . GRAN MAT (NEUT) % 53.7 % (test code = 770-8) IMM GRAN % (test code 0.90 % = 4689736698) LYMPH % (test code = 32.6 % 736-9) MONO % (test code = 10.1 % 5905-5) EOS % (test code = 1.5 % 713-8) BASO % (test code = 1.2 % 706-2) GRAN MAT x10^3(ANC) 4.98 10*3/uL 1.88-7.09 (test code = 1505451897) IMM GRAN x10^3 (test 0.08 10*3/uL 0.00-0.06 H code = 8525296968) LYMPH x10^3 (test code 3.02 10*3/uL 1.32-3.29 = 731-0) MONO x10^3 (test code 0.94 10*3/uL 0.33-0.92 H = 742-7) EOS x10^3 (test code = 0.14 10*3/uL 0.03-0.39 711-2) BASO x10^3 (test code 0.11 10*3/uL 0.01-0.07 H = 704-7) Lab Interpretation Abnormal (test code = 77631-8) [facility]anoPOIA GLUCOSE (AUTOMATED)2021-11-23 20:17:33 Test Item Value Reference Range Interpretation Comments POCT GLU (test code = 111 mg/dL 70-110 H Notifi ed Provider [id number]) Lab Interpretation (test Abnormal code = 70136-6) [facility] TEST, THINPREP, [id number] 00:00:00 Test Item Value Reference Range Interpretation Comments SOURCE: (test code = Endocervical 8001) SLIDES: (test code = 1 8011) LMP: (test code = 8021) 06/03/2021 SPECIMEN ADEQUACY: (test (NOTE) code = 77267) INTERPRETATION: (test ASCUS/EPITH. code = 62337) ABNORMALITY; SEE BELOW COMPENSATION AND HRIS ANALYST: (test Anusha code = 8101) CHANA Sepulveda(ASCP)IAC PATHOLOGIST Nahid Russell, INTERPRETATION BY: (test M.DDleroy code = 8122) LOCATION: (test code = (NOTE) 12687) CPT: (test code = 8140) (NOTE) PAP TEST, THINPREP, [id number] 00:00:00 Test Item Value Reference Range Interpretation Comments SOURCE: (test code = Endocervical 8001) SLIDES: (test code = 1 8011) LMP: (test code = 8021) 06/03/2021 SPECIMEN ADEQUACY: (test (NOTE) code = 03732) INTERPRETATION: (test ASCUS/EPITH. code = 17125) ABNORMALITY; SEE BELOW COMPENSATION AND HRIS ANALYST: (test Anusha code = 8101) CHANA Sepulveda(ASCP)[facility] PATHOLOGIST Nahid Russell, INTERPRETATION BY: (test M.D. code = 8122) LOCATION: (test code = (NOTE) 19018) CPT: (test code = 8140) (NOTE) PAP TEST, THINPREP, [id number] 00:00:00 Test Item Value Reference Range Interpretation Comments SOURCE: (test code = Endocervical 8001) SLIDES: (test code = 1 8011) LMP: (test code = 8021) 06/03/2021 SPECIMEN ADEQUACY: (test (NOTE) code = 88636) INTERPRETATION: (test ASCUS/EPITH. code = 60302) ABNORMALITY; SEE BELOW COMPENSATION AND HRIS ANALYST: (test Anusha code = 8101) CHANA Sepulveda(ASCP)[facility] PATHOLOGIST Nahid Russell, INTERPRETATION BY: (test M.D. code = 8122) LOCATION: (test code = (NOTE) 22618) CPT: (test code = 8140) (NOTE) PAP TEST, THINPREP, [id number] 00:00:00 Test Item Value Reference Range Interpretation Comments SOURCE: (test code = Endocervical 8001) SLIDES: (test code = 1 8011) LMP: (test code = 8021) 06/03/2021 SPECIMEN ADEQUACY: (test (NOTE) code = 49617) INTERPRETATION: (test ASCUS/EPITH. code = 35745) ABNORMALITY; SEE BELOW COMPENSATION AND HRIS ANALYST: (test Anusha code = 8101) CHANA Sepulveda(ASCP)[facility] PATHOLOGIST Nahid Russell, INTERPRETATION BY: (test M.D. code = 8122) LOCATION: (test code = (NOTE) 07189) CPT: (test code = 8140) (NOTE) HPV HIGH RISK WITH GENOTYPE, [id number] 00:00:00 Test Item Value Reference Range Interpretation Comments HPV HIGH RISK INTERP (test code = POSITIVE 82939) HPV 16 (test code = 43761) POSITIVE HPV 18 (test code = 56353) NEGATIVE HPV, HR, OTHER GENOTYPES (test code POSITIVE = 96730) HPV HIGH RISK WITH GENOTYPE, [id number] 00:00:00 Test Item Value Reference Range Interpretation Comments HPV HIGH RISK INTERP (test code = POSITIVE 04508) HPV 16 (test code = 28714) POSITIVE HPV 18 (test code = 42436) NEGATIVE HPV, HR, OTHER GENOTYPES (test code POSITIVE = 86441) HPV HIGH RISK WITH GENOTYPE, [id number] 00:00:00 Test Item Value Reference Range Interpretation Comments HPV HIGH RISK INTERP (test code = POSITIVE 00990) HPV 16 (test code = 00076) POSITIVE HPV 18 (test code = 93991) NEGATIVE HPV, HR, OTHER GENOTYPES (test code POSITIVE = 33962) HPV HIGH RISK WITH GENOTYPE, [id number] 00:00:00 Test Item Value Reference Range Interpretation Comments HPV HIGH RISK INTERP (test code = POSITIVE 43014) HPV 16 (test code = 00200) POSITIVE HPV 18 (test code = 73584) NEGATIVE HPV, HR, OTHER GENOTYPES (test code POSITIVE = 27188) [id number] 03:22:48 Test Item Value Reference Range Interpretation Comments APPEARANCE (test code = Hazy Clear A 4558317306) COLOR (test code = Yellow Yellow 8047966445) PH (test code = 4.8-8.0 1555163789) SP GRAVITY (test code = 1.003-1.030 0006453304) GLU U QUAL (test code = Normal Normal 1821584796) BLOOD (test code = Negative Negative Interfere nce from 6362415274) ascorbic acid m ay cause false neg ative results. KETONES (test code = 5 mg/dL Negative A 8816253467) PROTEIN (test code = Negative Negative 2887-8) UROBILIN (test code = 4.0 mg/dL Normal A 3466791919) BILIRUBIN (test code = Negative Negative 8907925843) NITRITE (test code = Negative Negative 0743716659) LEUK GRUPO (test code = Negative Negative 1487126432) RBC/HPF (test code = See_Comment [Autom ated message] 5985277709) The system [employer] generated this result transmitted ref erence range: 0 - 3 HP F. The reference range was not used to int erpret this result as normal/abnormal . WBC/HPF (test code = <1 See_Comment [Autom ated message] 2721207259) The system [employer] generated this result transmitted ref erence range: 0 - 5 HP F. The reference range was not used to int erpret this result as normal/abnormal . BACTERIA (test code = Few Negative A 5488760617) SQ EPITH (test code = HPF 2100911772) Lab Interpretation Abnormal (test code = 05190-7) [facility] Test Item Value Reference Range Interpretation Comments APPEARANCE (test code = Hazy Clear A 2691555645) COLOR (test code = Yellow Yellow 6735098392) PH (test code = 4.8-8.0 4804257695) SP GRAVITY (test code = 1.003-1.030 2661529207) GLU U QUAL (test code = Normal Normal 0309470648) BLOOD (test code = Negative Negative 3933407370) KETONES (test code = 5 mg/dL Negative A 2304390694) PROTEIN (test code = Negative Negative 2887-8) UROBILIN (test code = 4.0 mg/dL Normal A 5442480347) BILIRUBIN (test code = Negative Negative 6029199862) NITRITE (test code = Negative Negative 0654615216) LEUK GRUPO (test code = Negative Negative 9874366336) RBC/HPF (test code = See_Comment [Autom ated message] 4454097523) The system [employer] generated this result transmit sherice reference range : 0 - 3 HPF. The refe rence range was not u sed to interpret th is result as normal/abnormal . WBC/HPF (test code = <1 See_Comment [Autom ated message] 1143745729) The system [employer] generated this result transmit sherice reference range : 0 - 5 HPF. The refe rence range was not u sed to interpret th is result as normal/abnormal . BACTERIA (test code = Few Negative A 1663654821) SQ EPITH (test code = HPF 9428673383) Lab Interpretation (test Abnormal code = 23826-2) [facility] [id number] 02:45:00 Test Item Value Reference Interpretation Comments Range TROPONIN I (test 0.002 ng/mL See_Comment [Automated code = 4154792804) message] The system which generated this result [...] biotin. Lab Interpretation Normal (test code = 53395-9) [facility] [id number] 02:45:00 Test Item Value Reference Range Interpretation Comments TROPONIN I (test code = 0.002 ng/mL See_Comment [Au tomated 6119183705) message] The sy stem which generated this result transmitted reference range : <=0.034. The reference range was not used to interpret this result as normal/abnormal . LYNDSAY (test code = LYNDSAY) Lab Interpretation Normal (test code = 99422-9) [facility] [id number] 02:41:57 Test Item Value Reference Range Interpretation Comments NT-proBNP (test code 169 pg/mL See_Comment H [Autom ated = 1339309702) message] The system which generated this result transmitted reference range : <=125. The reference range was not used to interpret this result as normal/abnormal . LYNDSAY (test code = LYNDSAY) Biotin has been reported to cause a negative bias, interpret results relative to patient's use of biotin. Lab Interpretation Abnormal (test code = 72493-0) [facility] [id number] 02:41:57 Test Item Value Reference Range Interpretation Comments NT-proBNP (test code = 169 pg/mL See_Comment H [Aut omated message] 9288194739) The system [facility] [employer] generated this result transmit sherice reference range : <=125. The refe rence range was not u sed to interpret th is result as normal/abnormal . LYNDSAY (test code = LYNDSAY) Lab Interpretation (test Abnormal code = 14331-3) [facility] [place]. METABOLIC PANEL ([id number])2021-03-17 02:09:13 Test Item Value Reference Range Interpretation Comments NA (test code = 137 mmol/L 135-145 7171058511) K (test code = 4.2 mmol/L 3.5-5.0 7407447040) CL (test code = 102 mmol/L 98-108 4459085737) CO2 TOTAL (test code = 25 mmol/L 23-31 2981679301) AGAP (test code = 2-16 4398094600) BUN (test code = 18 mg/dL 7-23 2513563885) GLUCOSE (test code = 144 mg/dL 70-110 H 3590113657) CREATININE (test code = 0.77 mg/dL 0.50-1.04 6253105292) TOTAL BILI (test code = 0.4 mg/dL 0.1-1.7 5426439569) CALCIUM (test code = 8.9 mg/dL 8.6-10.6 1492208467) T PROTEIN (test code = 6.8 g/dL 6.3-8.2 0258622621) ALBUMIN (test code = 3.9 g/dL 3.5-5.0 3164050822) ALK PHOS (test code = 84 U/L 34-122 1533023651) ALTv (test code = 13 U/L 5-35 1742-6) AST(SGOT) (test code = 17 U/L 13-40 0563502867) eGFR (test code = mL/min/1.73m2 7916989416) LYNDSAY (test code = LYNDSAY) Association of [...] tests). Lab Interpretation Abnormal (test code = 49363-9) [facility]. METABOLIC PANEL (85651)2021-03-17 02:09:13 Test Item Value Reference Range Interpretation Comments NA (test code = 9210987375) 137 mmol/L 135-145 K (test code = 2504309863) 4.2 mmol/L 3.5-5.0 CL (test code = 9204625913) 102 mmol/L 98-108 CO2 TOTAL (test code = 7297223400) 25 mmol/L 23-31 AGAP (test code = 4469258096) 2-16 BUN (test code = 6530808610) 18 mg/dL 7-23 GLUCOSE (test code = 2030967713) 144 mg/dL 70-110 H CREATININE (test code = 0.77 mg/dL 0.50-1.04 1848710738) TOTAL BILI (test code = 0.4 mg/dL 0.1-1.3 3288387578) CALCIUM (test code = 4584905308) 8.9 mg/dL 8.6-10.6 T PROTEIN (test code = 4658650462) 6.8 g/dL 6.3-8.2 ALBUMIN (test code = 9354910941) 3.9 g/dL 3.5-5.0 ALK PHOS (test code = 8281929985) 84 U/L 34-122 ALTv (test code = 1742-6) 13 U/L 5-35 AST(SGOT) (test code = 7478412158) 17 U/L 13-40 eGFR (test code = 4676041821) mL/min/1.73m2 LYNDSAY (test code = LYNDSAY) Lab Interpretation (test code = Abnormal 32079-7) [facility] WITH [id number] 01:56:33 Test Item Value Reference Range Interpretation [...] (test code = 55.5 fL 39.0-49.9 H 93443-2) RDW-CV (test code = 18.9 % 12.0-15.5 H 788-0) PLT (test code = See_Comment H [Automated 777-3) message] The sy stem which generated this result transmitted reference range : 166 - 358 10*3/ ?L. The reference r zoe was not used to interpret this result as normal/abnormal . MPV (test code = 8.2 fL 9.5-12.9 L 17445-5) NRBC/100 WBC (test See_Comment [Automat ed code = 1453593786) message] The system which generated this result transmitted reference range : 0.0 - 10.0 /100 WBCs. The refer ence range was not u sed to interpret th is result as normal/abnormal . NRBC x10^3 (test code <0.01 See_Comment [Auto mated = 6871567818) message] The s ystem which generated this result transmitted reference range : 10*3/?L. The reference range was not used to interpret this result as normal/abnormal . GRAN MAT (NEUT) % 61.7 % (test code = 770-8) IMM GRAN % (test code 0.80 % = 1800238336) LYMPH % (test code = 28.5 % 736-9) MONO % (test code = 6.3 % 5905-5) EOS % (test code = 1.8 % 713-8) BASO % (test code = 0.9 % 706-2) GRAN MAT x10^3(ANC) 7.31 10*3/uL 1.88-7.09 H (test code = 5277287002) IMM GRAN x10^3 (test 0.09 10*3/uL 0.00-0.06 H code = 3679908633) LYMPH x10^3 (test code 3.38 10*3/uL 1.32-3.29 H = 731-0) MONO x10^3 (test code 0.75 10*3/uL 0.33-0.92 = 742-7) EOS x10^3 (test code = 0.21 10*3/uL 0.03-0.39 711-2) BASO x10^3 (test code 0.11 10*3/uL 0.01-0.07 H = 704-7) Lab Interpretation Abnormal (test code = 89559-3) [facility] WITH [id number] 01:56:33 Test Item Value Reference Range Interpretation [...] (test code = 55.5 fL 39.0-49.9 H 77713-8) RDW-CV (test code = 18.9 % 12.0-15.5 H 788-0) PLT (test code = See_Comment H [Automated 777-3) message] The sy stem which generated this result transmitted reference range : 166 - 358 10*3/ ?L. The reference r zoe was not used to interpret this result as normal/abnormal . MPV (test code = 8.2 fL 9.5-12.9 L 13393-7) NRBC/100 WBC (test See_Comment [Automat ed code = 5632043958) message] The system which generated this result transmitted reference range : 0.0 - 10.0 /100 WBCs. The refer ence range was not u sed to interpret th is result as normal/abnormal . NRBC x10^3 (test code <0.01 See_Comment [Auto mated = 5523565880) message] The s ystem which generated this result transmitted reference range : 10*3/?L. The reference range was not used to interpret this result as normal/abnormal . GRAN MAT (NEUT) % 61.7 % (test code = 770-8) IMM GRAN % (test code 0.80 % = 4291734557) LYMPH % (test code = 28.5 % 736-9) MONO % (test code = 6.3 % 5905-5) EOS % (test code = 1.8 % 713-8) BASO % (test code = 0.9 % 706-2) GRAN MAT x10^3(ANC) 7.31 10*3/uL 1.88-7.09 H (test code = 1558177022) IMM GRAN x10^3 (test 0.09 10*3/uL 0.00-0.06 H code = 7130477937) LYMPH x10^3 (test code 3.38 10*3/uL 1.32-3.29 H = 731-0) MONO x10^3 (test code 0.75 10*3/uL 0.33-0.92 = 742-7) EOS x10^3 (test code = 0.21 10*3/uL 0.03-0.39 711-2) BASO x10^3 (test code 0.11 10*3/uL 0.01-0.07 H = 704-7) Lab Interpretation Abnormal (test code = 59725-4) [facility]-19 (ID NOW RAPID TESTING)2021-03-17 01:38:12 Test Item Value Reference Range Interpretation Comments SARS-CoV-2 Rapid ID NOW Not Detected Not Detected (test code = 13642-2) LYNDSAY (test code = LYNDSAY) ID NOW COVID-19 Assay is an isothermal nucleic acid amplification test intended for the qualitative detection of nucleic acid from SARS-CoV-2 viral RNA in nasopharyngeal (BAS[employer]) specimens. It is used under Emergency Use [...] indicated. Lab Interpretation Normal (test code = 94776-5) [facility]-19 (ID NOW RAPID TESTING)2021-03-17 01:38:12 Test Item Value Reference Range Interpretation Comments SARS-CoV-2 Rapid ID NOW (test Not Detected Not Detected code = 03473-1) LYNDSAY (test code = LYNDSAY) Lab Interpretation (test code = Normal 34768-8) [facility]-19 (ID NOW RAPID TESTING)2021-02-19 17:42:45 Test Item Value Reference Range Interpretation Comments SARS-CoV-2 Rapid ID NOW Not Detected Not Detected (test code = 26419-8) LYNDSAY (test code = LYNDSAY) ID NOW COVID-19 Assay is an isothermal nucleic acid amplification test intended for the qualitative detection of nucleic acid from SARS-CoV-2 viral RNA in nasopharyngeal (BASIN CLE[employer]ER) specimens. It is used under Emergency Use [...] indicated. Lab Interpretation Normal (test code = 73422-2) [facility] [id number] 17:24:55Thickening of the gastric antrum and duodenal [...] nodularity of the left adrenal gland.RL: [address] [facility] [id number] 17:03:40 Test Item Value Reference Range Interpretation Comments APPEARANCE (test code = Hazy Clear A 9376575157) COLOR (test code = Mabel Yellow A 8084135176) PH (test code = 4.8-8.0 2144106936) SP GRAVITY (test code = 1.003-1.030 H 7049809641) GLU U QUAL (test code = Normal Normal 0272666918) BLOOD (test code = Negative Negative 9197858441) KETONES (test code = 5 mg/dL Negative A 4221887563) PROTEIN (test code = 30 mg/dL Negative A 2887-8) UROBILIN (test code = 4.0 mg/dL Normal A 0459536951) BILIRUBIN (test code = 4 mg/dL Negative A 4901970106) NITRITE (test code = Negative Negative 9180809803) LEUK GRUPO (test code = Negative Negative 7233340754) RBC/HPF (test code = See_Comment H [Autom ated message] 4942436357) The system [employer] generated this result transmit sherice reference range : 0 - 3 HPF. The refe rence range was not u sed to interpret th is result as normal/abnormal . WBC/HPF (test code = See_Comment H [Autom ated message] 6984395130) The system [employer] generated this result transmit sherice reference range : 0 - 5 HPF. The refe rence range was not u sed to interpret th is result as normal/abnormal . BACTERIA (test code = Few Negative A 9860187830) MUCOUS (test code = Moderate Negative LPF A 7827932195) SQ EPITH (test code = HPF 0653029550) CA OXALATE (test code = See_Comment H [Au tomated message] 0113975485) The system [employer] generated this result transmit sherice reference range : <=1 HPF. The refere nce range was not u sed to interpret th is result as normal/abnormal . Ictotest (test code = Negative 1923626822) Lab Interpretation (test Abnormal code = 75472-2) [facility] [id number] 16:34:55 Test Item Value Reference Range Interpretation Comments NA (test code = 139 mmol/L 135-145 4684046728) K (test code = 4.3 mmol/L 3.5-5.0 4357452482) CL (test code = 105 mmol/L 98-108 4113919022) CO2 TOTAL (test code 26 mmol/L 23-31 = 5992261394) AGAP (test code = 2-16 9943998288) BUN (test code = 11 mg/dL 7-23 3047807213) GLUCOSE (test code = 95 mg/dL 70-110 9616658030) CREATININE (test code 0.70 mg/dL 0.50-1.04 = 6815701011) TOTAL BILI (test code 0.6 mg/dL 0.1-1.1 = 9551221676) CALCIUM (test code = 8.9 mg/dL 8.6-10.6 2578883984) T PROTEIN (test code 7.7 g/dL 6.3-8.2 = 3926901359) ALBUMIN (test code = 4.1 g/dL 3.5-5.0 0694040040) ALK PHOS (test code = 79 U/L 34-122 5647644525) ALTv (test code = 10 U/L 5-35 2-6) AST(SGOT) (test code 22 U/L 13-40 = 8155135951) eGFR (test code = mL/min/1.73m2 6725409108) LYNDSAY (test code = LYNDSAY) Association of [...] or urine or abnormalities in imaging tests). [facility], [id number] 16:34:14 Test Item Value Reference Range Interpretation Comments LIPASE (test code = 5213699277) 45 U/L 0-220 Lab Interpretation (test code = Normal 55477-1) [facility] with [id number] 16:21:12 Test Item Value Reference Range Interpretation Comments WBC (test code = See_Comment [Automated 6854-2) message] The sy stem which generated this result transmitted reference range : 4.30 - 11.10 10*3/?L. The reference range was not used to interpret this result as normal/abnormal . RBC (test code = See_Comment [Automated 508-8) message] The sy stem which generated this [...] (test code = 54.4 fL 39.0-49.9 H 58648-5) RDW-CV (test code = 18.3 % 12.0-15.5 H 788-0) PLT (test code = See_Comment H [Automated 777-3) message] The sy stem which generated this result transmitted reference range : 166 - 358 10*3/ ?L. The reference r zoe was not used to interpret this result as normal/abnormal . MPV (test code = 8.5 fL 9.5-12.9 L 49547-7) NRBC/100 WBC (test See_Comment [Automat ed code = 4487538188) message] The system which generated this result transmitted reference range : 0.0 - 10.0 /100 WBCs. The refer ence range was not u sed to interpret th is result as normal/abnormal . NRBC x10^3 (test code <0.01 See_Comment [Auto mated = 5776631825) message] The s ystem which generated this result transmitted reference range : 10*3/?L. The reference range was not used to interpret this result as normal/abnormal . GRAN MAT (NEUT) % 78.3 % (test code = 770-8) IMM GRAN % (test code 0.40 % = 0923806903) LYMPH % (test code = 15.4 % 736-9) MONO % (test code = 4.8 % 5905-5) EOS % (test code = 0.1 % 713-8) BASO % (test code = 1.0 % 706-2) GRAN MAT x10^3(ANC) 7.15 10*3/uL 1.88-7.09 H (test code = 3479368818) IMM GRAN x10^3 (test 0.04 10*3/uL 0.00-0.06 code = 5197086717) LYMPH x10^3 (test code 1.41 10*3/uL 1.32-3.29 = 731-0) MONO x10^3 (test code 0.44 10*3/uL 0.33-0.92 = 742-7) EOS x10^3 (test code = <0.03 0.03-0.39 L 711-2) BASO x10^3 (test code 0.09 10*3/uL 0.01-0.07 H = 704-7) Lab Interpretation Abnormal (test code = 37977-9) [facility]
[2023-06-12] MEDS ORDERED: HYDROMORPHONE HCL 1 MG/ML INJ ONE ×2 (20:37→23:20)
[2023-06-12 20:43] LABS: Absolute Lymphocytes (CBC) 1.8 K/uL (0.7-4.9); Hematocrit 31.3 % (36.0-45.0); Lymphocytes % 12.7 % (15.3-44.8); MCV 89.2 fL (80-100); MPV 6.9 fL (7.6-11.3); Platelets 653 thou/uL (152-406); RBC Red Blood Cell Count 3.51 M/uL (3.86-4.86)
[2023-06-12 20:51] LABS: Protime INR 1.15
[2023-06-12 20:56] LABS: Potassium 3.1 mEq/L (3.5-5.1)
[2023-06-12] MEDS ORDERED: KCL 20 MEQ/100 mL IVPB 100 ML IV ONE (21:53)
[2023-06-12] MEDS ORDERED: NA CHLORIDE 0.9% 500 ML ONE (21:53)
--- NOTE | 2023-06-12 22:07 | RAD REPORT ---
EXAM DESCRIPTION: CTSpine Lumbar Wo Con06/12/2023 9:29 pm CLINICAL HISTORY: Bilateral leg radiculopathy COMPARISON: March 2023 TECHNIQUE: Computed axial tomography lumbar spine was obtained with coronal and sagittal reconstruct ion. All CT scans are performed using dose optimization technique as appropriate and may include automated exposure control or mA/KV adjustment according to patient size. FINDINGS: L1-2 unremarkable. Slight posterior subluxation of L2 on L3. Disc bulge. At thecal sac measures 8 millimeters. Mild narr owing of the neural foramina bilaterally Postsurgical changes L3 and L4. Disc bulge and facet hypertrophy L3-4. Disc is thinned with vacuum phenomena. Moderate narrowing of t he neural foramina bilaterally. The thecal sac does not appear significantly narrowed. Small amount o f air is present posterior to the thecal sac inferior aspect of L3 extending to the mid aspect of L4. Disc space narrowing L4-5 with vacuum phenomena. Disc bulge and facet hypertrophy. Moderate narrowing of the neural foramina bilaterally. Thecal sac measures approximately 8 millimeters. Disc bulge and facet hypertrophy L5-S1. Mild to moderate narrowing of the neural foramina. Thecal sac is normal caliber. No fracture. Degenerative changes involve the vertebral endplates of L 4 and L5 No abscess visualized IMPRESSION: Spondylosis L2-3 resulting in mild central spinal stenosis Postsurgical changes L3 and L4. Small amount of air extends posterior to the thecal sac L3 and L4. Jason marquez has had recent surgery so this probably is a normal finding. Infection is considered less likel y. Central spinal stenosis L3-4 is no longer present status post surgery Spondylosis L4-5 resulting in mild central spinal stenosis If the patient's symptoms do not improve then MRI would be recommended for further evaluation
[2023-06-12] MEDS ORDERED: ACETAMINOPHEN 325 MG TABLET ONE (22:13)
--- NOTE | 2023-06-12 22:22 | RAD REPORT ---
EXAM DESCRIPTION: CT - C Spine Wo Con - 06/12/2023 9:29 pm CLINICAL HISTORY: Radiculopathy and neck pain COMPARISON: 2021 TECHNIQUE: Computed axial tomography of the cervical spine were obtained with sagittal and coronal r econstruction images generated and reviewed. All CT scans are performed using dose optimization technique as appropriate and may include automated exposure control or mA/KV adjustment according to patient size. FINDINGS: Mild spondylosis C2-3 Anterior fusion C3 through C7 by plate, screws and bone plugs. The hardware appears intact. Disc bulge and osteophytes C3-4. Mild to moderate narrowing of the neural foramina bilaterally. Disc bulge and osteophytes C4-5. Mild narrowing left neural foramina. Thecal sac is 10 millimeters Disc bulge C5-6. Thecal sac 9 millimeters. Disc bulge osteophytes C6-7. Moderate narrowing of the left neural foramina C7-T1 unremarkable No fracture noted 1.7 centimeter and nodule has developed within the left upper lobe since a CT chest of May 15. It contains a tiny lucency. It is on the most inferior slice. The images do not go through the en tirety of the nodule. The nodule lies adjacent to a calcified granuloma. IMPRESSION: Postsurgical changes C3-C7 Spondylosis C5-6 resulting in mild central spinal stenosis Development of a 1.7 centimeter nodule incompletely evaluated on this exam. This may represent pneumo shara or an aggressive lung neoplasm. CT chest is recommended for further evaluation
--- NOTE | 2023-06-12 22:34 | RAD REPORT ---
EXAM DESCRIPTION: USExtrem Venous W Compress Bil06/12/2023 10:23 pm CLINICAL HISTORY: Leg pain COMPARISON: none FINDINGS: The common femoral, superficial femoral, greater saphenous, popliteal and posterior tibial veins bilaterally are compressible and demonstrate augmentation. Doppler demonstrates good flow. Grayscale, color and spectral analysis performed on all vessels IMPRESSION: No evidence of deep venous thrombosis involving either lower extremity.
--- NOTE | 2023-06-12 22:37 | RAD REPORT ---
EXAM DESCRIPTION: US - Lower Extremity Arterial Bilat - 06/12/2023 10:23 pm CLINICAL HISTORY: Leg pain COMPARISON: March 2023 FINDINGS: Right common femoral, superficial femoral and popliteal arteries demonstrate triphasic waveforms The right posterior tibial and dorsalis pedis arteries demonstrate triphasic waveforms The left common femoral, superficial femoral and popliteal arteries demonstrate triphasic waveforms The left posterior tibial and dorsalis pedis arteries demonstrate triphasic waveforms Mild calcified plaque is present within the arteries Grayscale, color and spectral analysis performed on all vessels IMPRESSION: No significant abnormality is displayed
--- NOTE | 2023-06-12 23:53 | EDPHYS ---
Physician Documentation [facility] Name: Heather Coon Age: 53 yrs Sex: Female : 1970 Arrival Date: 06/12/2023 Time: 19:56 Bed 15 Private MD: ED Physician Jones Parham HPI: 06/12 20:26 This 53 yrs old Female presents to ER via EMS with complaints of leg pain, bilateral. rn 20:26 The patient presents with pain, that is acute. The complaints affect the Bilateral legs rn from the knees down. Onset: The symptoms/episode began/occurred 2 week(s) ago. Modifying factors: The symptoms are alleviated by nothing. the symptoms are aggravated by movement. Severity of symptoms: At their worst the symptoms were moderate, in the emergency department the symptoms are unchanged. The patient has experienced similar episodes in the past. The patient has been recently seen by a physician:. Patient reports bilateral leg pain from the knees down, no trauma, had cervical and lumbar fusion performed earlier this month approximately 2 weeks ago. States has been in pain ever since requiring assistance to go to the bathroom. Can walk just hurts, has to use walker. Has been taking her pain medication prescribed by her surgeon. States not getting better and was waiting for a follow-up visit, called her surgeon's office and told to come to the ER for evaluation. No bowel or bladder incontinence. Seems limited movement seems more due to pain and not weakness. Historical: - Allergies: 20:05 fluoxetine; ha1 20:05 Green Tea; ha1 20:05 Keppra; not an allergy; ha1 - Home Meds: 20:05 Metoprolol Tartrate Oral [Active]; ha1 - PMHx: 20:05 Anxiety; Arthritis; Bipolar disorder; Cancer-Cervical; Chronic obstructive lung ha1 disease; Chronic pain; Congestive heart failure; Depression; Diverticulitis; Herniated Back Disc; Hypertension; intestinal mass; Myocardial infarction; pt reports hx of seizures; Spastic Muscles; stroke; - PSHx: 20:05 cervical fusion; Cholecystectomy; foot; Tonsillectomy; ha1 - Immunization history:: Adult Immunizations unknown. - Social history:: Smoking status: Patient reports the use of cigarette tobacco products, smokes one pack cigarettes per day. - Family history:: not pertinent. - Hospitalizations: : No recent hospitalization is reported. ROS: 20:28 Constitutional: Negative for fever, chills, and weight loss, Cardiovascular: Negative rn for chest pain, palpitations, and edema, Respiratory: Negative for shortness of breath, cough, wheezing, and pleuritic chest pain, Abdomen/GI: Negative for abdominal pain, nausea, vomiting, diarrhea, and constipation, Back: Negative for injury MS/Extremity: Pain to bilateral lower extremity Neuro: Negative for headache, and seizure, Exam: 20:28 Constitutional: This is a well developed, well nourished patient who is awake, alert, rn appears in pain Cardiovascular: Tachycardic, regular. Respiratory: No increased work of breathing, no retractions or nasal flaring. Abdomen/GI: Soft, non-tender MS/ Extremity: No cyanosis. Mottled lower extremities without asymmetric swelling. Painful range of motion of both legs. No evidence of trauma. No swelling or warmth or erythema of either knee. Diminished bilateral lower extremity pulses at level of DP Neuro: Awake and alert, GCS 15, oriented to person, place, time, and situation. Cranial nerves II-XII grossly intact. Motor strength 4/5 in all extremities. Sensory grossly intact. Withdraws both legs from pain and has effort against gravity Vital Signs: 19:59 BP 129 / 83; Pulse 112; Resp 18 S; Temp 100.3(O); Pulse Ox 100% on R/A; Weight 86.64 ha1 kg; Height 5 ft. 2 in. ; 21:10 BP 104 / 70; Pulse 107; Resp 18 S; Pulse Ox 100% on R/A; ha1 22:00 BP 147 / 100; Pulse 110; Resp 15 S; Pulse Ox 100% on R/A; ha1 23:00 BP 117 / 76; Pulse 104; Resp 17 S; Pulse Ox 98% on R/A; ha1 06/13 00:00 BP 117 / 89; Pulse 100; Resp 17 S; Temp 98.1(O); Pulse Ox 100% on R/A; ha1 01:00 BP 120 / 88; Pulse 100; Resp 18 S; Pulse Ox 100% on R/A; ha1 01:30 BP 138 / 98; Pulse 102; Resp 19 S; Pulse Ox 98% on R/A; ha1 02:00 BP 125 / 97; Pulse 98; Resp 20 S; Pulse Ox 100% on R/A; ha1 02:54 BP 140 / 90; Pulse 94; Resp 17 S; Pulse Ox 98% on R/A; ha1 06/12 19:59 Body Mass Index 34.93 (86.64 kg, 157.48 cm) 1 MDM: 06/12 20:00 Patient medically screened. rn 22:31 ED course: Abnormal finding in the chest when CT neck was obtained. Patient states has rn been having cough. Will order CT chest to further evaluate. Waiting for callback from her spinal surgeon.. 23:50 Differential diagnosis: Spinal infection, post operative complication, radiculopathy, rn electrolyte abnormality. Data reviewed: vital signs, nurses notes, lab test result(s), radiologic studies, CT scan, and as a result, I will admit patient. Consideration of Admission/Observation Patient was admitted/placed on observation. Escalation of care including admission/observation considered. Management of patient was discussed with the following: Hospitalist: Discussed case with Dr. Fry, recommends transfer given multiple studies and specialist we need are not available here immediately. Transfer initiated to [facility] given surgery 2 weeks ago on spine and also having difficulty walking.. I considered the following discharge prescriptions or medication management in the emergency department Medications were administered in the Emergency Department. See MAR. Independent interpretation of the following test(s) in the Emergency Department CT Scan: My interpretation is CT chest images show multiple cavitary masses bilaterally per my interpretation.. Counseling: I had a detailed discussion with the patient and/or guardian regarding the historical points, exam findings, and any diagnostic results supporting the discharge/admit diagnosis, lab results, radiology results, the need to transfer to another facility, for higher level of care, [facility] does not immediately have the required specialist. Response to treatment: the patient's symptoms have mildly improved after treatment, and as a result, I will admit patient. 06/13 01:04 ED course: Accepted transfer to [facility]. [facility] hospitalist requested additional rn antibiotics to be administered, 500 cc bolus.. 06/12 20:28 Order name: Flu; Complete Time: 22:01 rn 06/12 20:28 Order name: CK; Complete Time: 02:08 rn 06/12 20:36 Order name: Basic Metabolic Panel; Complete Time: 21:17 EDMS 06/12 20:36 Order name: CBC with Automated Diff; Complete Time: 21:17 EDMN 06/12 20:36 Order name: Protime (+INR); Complete Time: 21:17 EDMN 06/12 20:36 Order name: PTT, Activated Partial Thromb; Complete Time: 21:17 EDMN 06/12 23:38 Order name: Blood Culture Adult (2) rn 06/12 23:38 Order name: Lactate w/ 2H reflex if indic.; Complete Time: 00:50 rn 06/12 23:38 Order name: Sputum Culture rn 06/12 20:10 Order name: CT C Spine; Complete Time: 22:25 rn 06/12 20:10 Order name: CT Lumbar Spine Wo Con; Complete Time: 22:25 rn 06/12 21:15 Order name: Extrem Venous W Compression Yuriy US; Complete Time: 22:57 rn 06/12 21:15 Order name: Lower Extremity Arterial Bilat US; Complete Time: 22:57 rn 06/12 22:27 Order name: CT Chest Wo Con rn 06/12 20:10 Order name: IV Start; Complete Time: 20:15 rn Administered Medications: 06/12 21:01 Drug: HYDROmorphone IVP 1 mg IVP once Route: IVP; Site: right forearm; [facility] 21:30 Follow up: Response: No adverse reaction; Pain is decreased; RASS: Alert and Calm (0) [facility] 21:53 Drug: Potassium Chloride IV 20 mEq IV at calculated rate once; administer over 1-2 ha1 hours Route: IV; Rate: calculated rate; Site: right forearm; 06/13 00:25 Follow up: Response: No adverse reaction; IV Status: Completed infusion; IV Intake: ha1 100ml 06/12 22:05 Drug: Acetaminophen PO 650 mg PO once Route: PO; [facility] 06/13 00:00 Follow up: Response: No adverse reaction; Temperature is decreased [facility] 06/12 23:12 Drug: HYDROmorphone IVP 1 mg IVP once Route: IVP; Site: right forearm; 1 23:45 Follow up: Response: No adverse reaction; Pain is decreased; RASS: Alert and Calm (0) [facility] 06/13 00:26 Drug: Cefepime IVPB 1 grams IVPB at 200 ml/hr once over 30 mins; (mix in NS 100 mL) ha1 Route: IVPB; Rate: 200 ml/hr; Infused Over: 30 mins; Site: right forearm; 01:00 Follow up: Response: No adverse reaction; IV Status: Completed infusion; IV Intake: ha1 100ml 00:59 Not Given (Duplicate Order): vancomycin1 grams IVPB once over 2 hrs rn 01:02 CANCELLED (Duplicate Order): ns 0.9% 1000 ml IV at 1000 ml once rn 01:02 Drug: NS 0.9% IV 500 ml IV at bolus once Route: IV; Rate: bolus; Site: right forearm; ha1 02:52 Follow up: Response: No adverse reaction; IV Status: Completed infusion; IV Intake: ha1 500ml 01:03 Drug: vancoMYCIN IVPB 1.5 grams IVPB at calculated rate once Route: IVPB; Rate: ha1 calculated rate; Site: right forearm; 02:53 Follow up: Response: No adverse reaction; IV Status: Infusion continued; IV Intake: ha1 125ml 01:34 Drug: Cefepime IVPB 1 grams IVPB at 200 ml/hr once over 30 mins; (mix in NS 100 mL) ha1 Route: IVPB; Rate: 200 ml/hr; Infused Over: 30 mins; Site: right forearm; 02:00 Follow up: Response: No adverse reaction; IV Status: Completed infusion; IV Intake: ha1 100ml 02:25 Drug: HYDROmorphone IVP 0.5 mg IVP once Route: IVP; Site: right forearm; ha1 02:51 Follow up: Response: No adverse reaction; Pain is decreased; RASS: Alert and Calm (0) ha1 Disposition Summary: 06/12/23 23:53 Transfer Ordered Notes: Transfer Location: [facility] rn Reason: Higher level of care rn Condition: Stable rn Problem: new rn Symptoms: have improved rn Accepting Physician: (06/13/23 02:59) 1 Diagnosis - Multiple lung masses rn - Pneumonia, unspecified organism rn - Spinal stenosis, lumbar region with neurogenic claudication rn Forms: - Medication Reconciliation Form rn - SBAR form rn Signatures: Dispatcher [employer] EDJones Mane MD MD rn Ayala, Heidy, RN RN [facility] Corrections: (The following items were deleted from the chart) 06/12 20:54 20:54 C Spine Wo Con+CT.RAD.BRZ ordered. EDMS EDMS 20:54 20:54 Spine Lumbar Wo Con+CT.RAD.BRZ ordered. EDMS EDMS 20:54 20:54 Extrem Venous W Compression Yuriy+US.RAD.BRZ ordered. EDMS EDMS 20:54 20:54 Lower Extremity Arterial Bilat+US.RAD.BRZ ordered. EDMS EDMS :54 20:54 Influenza Screen (A \T\ B)+BA.LAB.BRZ ordered. EDMS EDMS 20:54 20:54 CREATINE PHOSPHOKINASE+C.LAB.BRZ ordered. EDMS EDMS 21:23 21:15 Spine Lumbar Wo Con+CT.RAD.BRZ ordered. EDMS EDMS 21: 21:15 C Spine Wo Con+CT.RAD.BRZ ordered. EDMS EDMS 21:46 21:30 C Spine Wo Con+CT.RAD.BRZ ordered. EDMS EDMS 21:46 21:31 Spine Lumbar Wo Con+CT.RAD.BRZ ordered. EDMS EDMS 06/13 01:02 01:01 NS 0.9% IV 1000 ml IV at 1000 ml once ordered. zhen rn 01:49 06/12 20:54 CBC+H.LAB.BRZ ordered. EDMS EDMS 06/13 01:49 06/12 20:54 PROTIME (+INR)+COAG.LAB.BRZ ordered. EDMS EDMS 06/13 01:49 06/12 20:54 PTT, ACTIVATED+COAG.LAB.BRZ ordered. EDMS EDMS 06/13 01:50 06/12 20:54 BASIC METABOLIC PANEL+C.LAB.BRZ ordered. EDMS EDMS 06/13 02:59 06/12 23:53 rn ha1
--- NOTE | 2023-06-12 23:53 | ER ---
Nurse's Notes [facility] Name: Heather Coon Age: 53 yrs Sex: Female : 1970 Arrival Date: 06/12/2023 Time: 19:56 Bed 15 Private MD: Diagnosis: Multiple lung masses;Pneumonia, unspecified organism;Spinal stenosis, lumbar region with neurogenic claudication Presentation: 06/12 19:59 Chief complaint: EMS states: 53 year old female report bilateral leg pain that started ha1 3-4 days ago. She had neck surgery awhile ago and was told by surgeon to come to ER. She also reports Thrush in her mouth. Coronavirus screen: Vaccine status: Patient reports receiving the 2nd dose of the covid vaccine. [employer]. Ebola Screen: No symptoms or risks identified at this time. Initial Sepsis Screen: Does the patient meet any 2 criteria? No. Patient's initial sepsis screen is negative. Does the patient have a suspected source of infection? No. Patient's initial sepsis screen is negative. Risk Assessment: Do you want to hurt yourself or someone else? Patient reports no desire to harm self or others. Onset of symptoms was June 09, 2023. 19:59 Method Of Arrival: EMS: [facility] ha1 19:59 Acuity: ANDER 3 ha1 Historical: - Allergies: 20:05 fluoxetine; ha1 20:05 Green Tea; ha1 20:05 Keppra; not an allergy; ha1 - Home Meds: 20:05 Metoprolol Tartrate Oral [Active]; ha1 - PMHx: 20:05 Anxiety; Arthritis; Bipolar disorder; Cancer-Cervical; Chronic obstructive lung ha1 disease; Chronic pain; Congestive heart failure; Depression; Diverticulitis; Herniated Back Disc; Hypertension; intestinal mass; Myocardial infarction; pt reports hx of seizures; Spastic Muscles; stroke; - PSHx: 20:05 cervical fusion; Cholecystectomy; foot; Tonsillectomy; ha1 - Immunization history:: Adult Immunizations unknown. - Social history:: Smoking status: Patient reports the use of cigarette tobacco products, smokes one pack cigarettes per day. - Family history:: not pertinent. - Hospitalizations: : No recent hospitalization is reported. Screenin:06 [facility] ED Fall Risk Assessment (Adult) History of falling in the last 3 months, pf1 including since admission No falls in past 3 months (0 pts) Confusion or Disorientation No (0 pts) Intoxicated or Sedated No (0 pts) Impaired Gait Yes (1 pt) Mobility Assist Device Used Yes (1 pt) Altered Elimination No (0 pt) Score/Fall Risk Level 0 - 2 = Low Risk Oriented to surroundings, Maintained a safe environment, Educated pt \T\ family on fall prevention, incl call for assistance when getting out of bed, Assessed \T\ reinforced patient's understanding of fall precautions, Provided non-skid footwear, Hourly rounding (assess needs \T\ fall precautionary measures) done, Used ambulatory aids as needed (educated on \T\ assisted with), Used gait belt as appropriate. Abuse screen: Denies threats or abuse. Nutritional screening: No deficits noted. Tuberculosis screening: No symptoms or risk factors identified. Assessment: 20:00 General: see triage assessment . ha1 20:37 Reassessment: Family member contact # Ember [phone]. ha1 21:30 Reassessment: Patient and/or family updated on plan of care and expected duration. Pain ha1 level reassessed. Patient is alert, oriented x 3, equal unlabored respirations, skin warm/dry/pink. pain 4/10 Patient states feeling better. Patient states symptoms have improved. 22:25 Reassessment: Patient and/or family updated on plan of care and expected duration. Pain ha1 level reassessed. Patient is alert, oriented x 3, equal unlabored respirations, skin warm/dry/pink. Dr. Parham in the room. 23:00 Reassessment: Patient and/or family updated on plan of care and expected duration. Pain ha1 level reassessed. Patient is alert, oriented x 3, equal unlabored respirations, skin warm/dry/pink. 06/13 00:00 Reassessment: Patient and/or family updated on plan of care and expected duration. Pain ha1 level reassessed. Patient is alert, oriented x 3, equal unlabored respirations, skin warm/dry/pink. 01:00 Reassessment: Patient and/or family updated on plan of care and expected duration. Pain ha1 level reassessed. Patient is alert, oriented x 3, equal unlabored respirations, skin warm/dry/pink. 02:00 Reassessment: Patient and/or family updated on plan of care and expected duration. Pain ha1 level reassessed. Patient is alert, oriented x 3, equal unlabored respirations, skin warm/dry/pink. Vital Signs: 06/12 19:59 BP 129 / 83; Pulse 112; Resp 18 S; Temp 100.3(O); Pulse Ox 100% on R/A; Weight 86.64 ha1 kg; Height 5 ft. 2 in. ; 21:10 BP 104 / 70; Pulse 107; Resp 18 S; Pulse Ox 100% on R/A; ha1 22:00 BP 147 / 100; Pulse 110; Resp 15 S; Pulse Ox 100% on R/A; ha1 23:00 BP 117 / 76; Pulse 104; Resp 17 S; Pulse Ox 98% on R/A; ha1 06/13 00:00 BP 117 / 89; Pulse 100; Resp 17 S; Temp 98.1(O); Pulse Ox 100% on R/A; ha1 01:00 BP 120 / 88; Pulse 100; Resp 18 S; Pulse Ox 100% on R/A; ha1 01:30 BP 138 / 98; Pulse 102; Resp 19 S; Pulse Ox 98% on R/A; ha1 02:00 BP 125 / 97; Pulse 98; Resp 20 S; Pulse Ox 100% on R/A; ha1 02:54 BP 140 / 90; Pulse 94; Resp 17 S; Pulse Ox 98% on R/A; ha1 06/12 19:59 Body Mass Index 34.93 (86.64 kg, 157.48 cm) 1 ED Course: 06/12 19:59 Patient arrived in ED. ha1 20:00 Jones Parham MD is Attending Physician. rn 20:05 Triage completed. ha1 20:05 No provider procedures requiring assistance completed. Inserted saline lock: 22 gauge pf1 in right antecubital area, using aseptic technique. Blood collected. 20:06 Patient has correct armband on for positive identification. Bed in low position. Call pf1 light in reach. Side rails up X2. 20:12 Maria Elena Cottrell RN is Primary Nurse. ha1 20:30 IV discontinued, 22 arya in right AC. no flushing. ha1 20:45 Inserted saline lock: 20 gauge in right forearm, using aseptic technique. Inserted by [facility] , by BETH Swan. 21:31 CT C Spine In Process Unspecified. EDMS 21:31 CT Lumbar Spine Wo Con In Process Unspecified. EDMS 22:25 Extrem Venous W Compression Yuriy US In Process Unspecified. EDMS 22:25 Lower Extremity Arterial Bilat US In Process Unspecified. EDMS 22:57 CT Chest Wo Con In Process Unspecified. EDMS 06/13 00:13 Initiated transfer with Selina at [facility]. rv1 00:19 Sputum Culture Sent. ha1 00:19 Lactate w/ 2H reflex if indic. Sent. ha1 00:19 Blood Culture Adult (2) Sent. ha1 01:[address] Burgess to [facility] Rm [id number]. rv1 02:54 Sputum Culture Sent. ha1 Administered Medications: 06/12 21:01 Drug: HYDROmorphone IVP 1 mg IVP once Route: IVP; Site: right forearm; ha1 21:30 Follow up: Response: No adverse reaction; Pain is decreased; RASS: Alert and Calm (0) [facility] 21:53 Drug: Potassium Chloride IV 20 mEq IV at calculated rate once; administer over 1-2 ha1 hours Route: IV; Rate: calculated rate; Site: right forearm; 06/13 00:25 Follow up: Response: No adverse reaction; IV Status: Completed infusion; IV Intake: ha1 100ml 06/12 22:05 Drug: Acetaminophen PO 650 mg PO once Route: PO; ha1 06/13 00:00 Follow up: Response: No adverse reaction; Temperature is decreased [facility] 06/12 23:12 Drug: HYDROmorphone IVP 1 mg IVP once Route: IVP; Site: right forearm; ha1 23:45 Follow up: Response: No adverse reaction; Pain is decreased; RASS: Alert and Calm (0) 1 06/13 00:26 Drug: Cefepime IVPB 1 grams IVPB at 200 ml/hr once over 30 mins; (mix in NS 100 mL) ha1 Route: IVPB; Rate: 200 ml/hr; Infused Over: 30 mins; Site: right forearm; 01:00 Follow up: Response: No adverse reaction; IV Status: Completed infusion; IV Intake: ha1 100ml 00:59 Not Given (Duplicate Order): vancomycin1 grams IVPB once over 2 hrs rn 01:02 CANCELLED (Duplicate Order): ns 0.9% 1000 ml IV at 1000 ml once rn 01:02 Drug: NS 0.9% IV 500 ml IV at bolus once Route: IV; Rate: bolus; Site: right forearm; ha1 02:52 Follow up: Response: No adverse reaction; IV Status: Completed infusion; IV Intake: ha1 500ml 01:03 Drug: vancoMYCIN IVPB 1.5 grams IVPB at calculated rate once Route: IVPB; Rate: ha1 calculated rate; Site: right forearm; 02:53 Follow up: Response: No adverse reaction; IV Status: Infusion continued; IV Intake: ha1 125ml 01:34 Drug: Cefepime IVPB 1 grams IVPB at 200 ml/hr once over 30 mins; (mix in NS 100 mL) ha1 Route: IVPB; Rate: 200 ml/hr; Infused Over: 30 mins; Site: right forearm; 02:00 Follow up: Response: No adverse reaction; IV Status: Completed infusion; IV Intake: ha1 100ml 02:25 Drug: HYDROmorphone IVP 0.5 mg IVP once Route: IVP; Site: right forearm; ha1 02:51 Follow up: Response: No adverse reaction; Pain is decreased; RASS: Alert and Calm (0) ha1 Medication: 06/12 22:22 VIS not applicable for this client. ha1 Intake: 06/13 00:25 IV: 100ml; Total: 100ml. ha1 01:00 IV: 100ml; Total: 200ml. ha1 02:00 IV: 100ml; Total: 300ml. ha1 02:52 IV: 500ml; Total: 800ml. ha1 02:53 IV: 125ml; Total: 925ml. ha1 Outcome: 06/12 23:53 ER care complete, transfer ordered by MD. fontaine 06/13 02:59 Patient left the ED. ha1 Addendum: 06/14/2023 18:10 Addendum: Culture Results: Other preliminary blood culture growing + cocci in clusters. l l1 06/16/2023 15:36 Addendum: Other faxed culture results to [facility] rn [id number]. b d Signatures: Dispatcher [employer] EDMS Catherine Dewey Roman, MD MD rn Lewis, Lynsay, RN RN ll1 Maria Elena Cottrell RN RN [email or web address] Gabriela Jeff, RN RN pf1 Makenna Kirk Tomy
[2023-06-13] MEDS ORDERED: NA CHLORIDE 0.9% 100 ML ONE ×2 (00:31→01:35)
[2023-06-13] MEDS ORDERED: VANCOMYCIN 1 GM/VIAL ONE (00:31)
[2023-06-13] MEDS ORDERED: NA CHLORIDE 0.9% 250 ML ONE (00:31)
[2023-06-13] MEDS ORDERED: CEFEPIME 1 GM/VIAL ONE ×2 (00:31→01:34)
[2023-06-13] MEDS ORDERED: VANCOMYCIN 500 MG/VIAL ONE (01:34)
[2023-06-13] MEDS ORDERED: NA CHLORIDE 0.9% 500 ML ONE (01:34)
[2023-06-13] MEDS ORDERED: HYDROMORPHONE HCL 0.5 MG/0.5 ML INJ ONE (02:43)
[2023-06-13 03:45] VITALS: TEMP 98.1
[2023-06-13 03:50] VITALS: BP 140/90; O2SAT 98
--- NOTE | 2023-06-15 10:33 | RAD REPORT ---
EXAM DESCRIPTION: CT chest without IV contrast CLINICAL HISTORY: 53 years Female further eval ct cspine abnormal finding TECHNIQUE: Axial CT imaging of the chest was performed without intravenous contrast. Sagittal and coronal reconstructed images were then performed. The CT study is performed according to ALARA (as lo w as reasonably achievable) or ALARA/IMAGE GENTLY, with automatic adjustment of mA and/or kV accordin g to patient size. Performed on: 06/12/2023 at 10:48 PM COMPARISON: CT cervical spine report from 06/12/[address] chest pulmonary angiogram performed on . FINDINGS: CT CHEST: Lungs: The lungs are well expanded. Since the prior study there has been interval development of mult iple pulmonary parenchymal mass lesions and nodules bilaterally. The largest on the right is located in the right upper lobe and measures approximately 2.7 x 1.9 cm in cross-sectional diameter. There is partial cavitation within this mass lesion. The largest mass on the left measures approximately 1.8 x 1.3 cm in the left upper lobe and also contains partial cavitation. In light of the rapid developme nt of these mass lesions, an infectious process is considered more likely than a neoplastic process. Possible etiologies include a fungal or other mycobacterial infection, pulmonary infarcts and/or sept ic emboli or potentially aggressive metastatic disease. There are no pleural effusions. There is no p neumothorax. Central airways are patent. Heart: The heart is normal in size. There is a trace pericardial effusion. Mediastinum: The mediastinum is unremarkable. The mediastinal vessels are normal in caliber and con tour. Bones: No acute osseous abnormalities are identified. Soft tissues: No focal soft tissue abnormalities are identified. Lymphadenopathy: No pathologic hilar, mediastinal or axillary lymphadenopathy is identified. Upper abdomen: There is a stable low-density left adrenal mass lesion consistent with an adenoma. The gallbladder is surgically absent. IMPRESSION: 1. Since the prior study there has been interval development of multiple pulmonary par enchymal mass lesions and nodules bilaterally many of which demonstrate cavitation as described above . In light of the rapid development of these mass lesions, an infectious process is considered more l ikely than a neoplastic process. Possible etiologies include a fungal or other mycobacterial infectio n, pulmonary infarcts and/or septic emboli or potentially aggressive metastatic disease. 2. Trace pericardial effusion. 3. Stable low-density left adrenal mass lesion consistent with an adenoma. No follow-up imaging rec ommended. 4. Status post cholecystectomy. 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 The interpreting r adiologist is fully responsible for the content of the report.
== END 2023-06-13 02:59 | disposition short-term general hospital (02) ==
LOC: ER 19:56
DX: M48.062 Spinal stenosis, lumbar region with neurogenic claudication (principal); J18.9 Pneumonia, unspecified organism; R91.8 Other nonspecific abnormal finding of lung field; Z98.890 Other specified postprocedural states; F17.210 Nicotine dependence, cigarettes, uncomplicated; I10 Essential (primary) hypertension; I50.9 Heart failure, unspecified; Z88.8 Allergy status to other drugs, medicaments and biological substances; Z91.018 Allergy to other foods
CPT/HCPCS: 96365; 96367; 87040 ×2; 87070; 85025; 80048; 36415; 82550; 87205 ×2; 85610; 83605; 85730; 87077 ×2; 87186 ×2; 87804 ×2; 72131; 71250; 72125; 93925; 93970; 96375; 99284; 96366; J3480; J1170 ×3; J7050; J7040 ×2; J0692 ×2

== ENCOUNTER 2023-06-21 15:26 | Emergency (ER) | payer OTHER ==
[2023-06-21] MEDS ORDERED: LORazepam 2 MG/ML VIAL ONE (15:55)
[2023-06-21 16:08] LABS: Absolute Lymphocytes (CBC) 1.1 K/uL (0.7-4.9); Hematocrit 39.9 % (36.0-45.0); Lymphocytes % 16.1 % (15.3-44.8); MCV 89.8 fL (80-100); MPV 6.3 fL (7.6-11.3); Platelets 536 thou/uL (152-406); RBC Red Blood Cell Count 4.44 M/uL (3.86-4.86)
--- OUTSIDE RECORDS SUMMARY | 2023-06-21 16:08 | XMS REPORT | Continuity of Care Document ---
:[address] [facility] t Address [address] [place] [address] Care Team Providers Name Role Phone Aneta Silva Primary Care Physician [phone] AYDEE GO Attending Clinician Unavailable CARA BURGESS Attending Clinician Unavailable ADAM GARCIA Attending Clinician Unavailable THOMAS LOZOYA Attending Clinician Unavailable MARIAH ALDRIDGE Attending Clinician Unavailable Cara Burgess MD Attending Clinician Aydee Go MD Attending Clinician System, Provider Not In Attending Clinician Unavailable Dallas Gomez Attending Clinician Unavailable Adam Garcia MD Attending Clinician Harry Newsome MD Attending Clinician Antwon Cote MD Attending Clinician Yue Bui MD Attending Clinician Connie Davey MD Attending Clinician Luis Carlos ELIZONDO, Mariah Attending Clinician Devora ELIZONDO, Thomas Hopkins Attending Clinician [phone] CONNIE DAVEY Attending Clinician Unavailable Alfonso ALVARADO Attending Clinician Unavailable Alfonso Lopez Attending Clinician RITCHIE MOTTA Attending Clinician Unavailable Briana ELIZONDO, Ritchie Stoner Attending Clinician Shy Beckman RN Attending Clinician PARRISH WHEATLEY Attending Clinician Unavailable Reji ELIZONDO, Halima Hummel Attending Clinician Jen Geller MD Attending Clinician Roxi ELIZONDO, Parrish Reyez Attending Clinician [phone] LORENZA LOWRY Attending Clinician Unavailable Sav Rondon MD Attending Clinician Lorenza Lowry MD Attending Clinician Maria Teresa Nicole LVN Attending Clinician CHANTEL MATTHEWS Attending Clinician Unavailable CHANTEL MATTHEWS Attending Clinician Unavailable Brandyn Ibrahim MD Attending Clinician SELINA MARTINES Attending Clinician Unavailable Sapna Vargas DO Attending Clinician Glory Sarah MD Attending Clinician [phone] Selina Martines MD Attending Clinician Vaccine, Dudley Dangelo Attending Clinician Unavailable Jose Pak MD Attending Clinician JOSE PAK Attending Clinician Unavailable NICHELLE VIRK Attending Clinician Unavailable Nichelle Bishop Attending Clinician Doctor Unassigned, Shubert Attending Clinician Unavailable Brandy CAMPOS, Miky Attending Clinician Unavailable Fabrice Gordillo Attending Clinician Lydia Eaton Attending Clinician Unknown, Attending Attending Clinician Unavailable UNKNOWN, ATTENDING Attending Clinician Unavailable Anali Rascon Attending Clinician Yehuda Arcos MD Attending Clinician CARA BURGESS Admitting Clinician Unavailable ADAM GARCIA Admitting Clinician Unavailable MARIAH ALDRIDGE Admitting Clinician Unavailable CONNIE DAVEY Admitting Clinician Unavailable Alfonso ALVARADO Admitting Clinician Unavailable RITCHIE MOTTA Admitting Clinician Unavailable JEN GELLER Admitting Clinician Unavailable LORENZA LOWRY Admitting Clinician Unavailable Lorenza Lowry MD Admitting Clinician BRANDYN IBRAHIM Admitting Clinician Unavailable Brandyn Ibrahim MD Admitting Clinician GLORY SARAH Admitting Clinician Unavailable NICHELLE VIRK Admitting Clinician Unavailable Payers Payer Name Policy Type Policy Number Effective Date Expiration Date Benjamin RICARDO [id number] 2023 00:00:00 MEDICAID PENDING PENDING 2022 00:00:00 Problems Condition Condition Condition Status Onset Resolution Last Treating Co mments Source Name Details Category Date Date Treatment Clinician Date Bilateral Bilateral Disease Active 2022-[address] [facility] leg leg 1-25 [facility] weakness weakness 00:00: Medica l 00 [place] Pneumonia Pneumonia Disease Active 2022-[address] [facility] 1-25 [facility] 00:00: Medical 00 [place] 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 00:00: Medical 00 Center Cervical Cervical Disease Recurre 2022-[address] [facility] [address] myelopathy myelopathy nce 07-28 [facility] 00:00: Medical 00 Center Cervical Cervical Disease Active 2022-07 [facility] disorder disorder 00:00: Medica l 00 Center Cord Cord Disease Recurre [facility] compressio compressio nce 9- [facility] n n 00:00: Medical 00 Center Cauda Cauda Disease Recurre [facility] equina equina nce 9-11 [facility] compressio compressio 00:00: Me dical n n 00 Center Seizure Seizure Disease Recurre [facility] n[facility] 1-14 [facility] 00:00: [facility] 00 Center Cardiomyop Cardiomyop Disease Active U nivers athy athy 1-13 ity of 00:00: [place] 00 Medical Branch NSVT NSVT Disease Active Univers (nonsustai (nonsustai 1-13 it y of keisha keisha 00:00: [place] ventricula ventricula 00 Mo dical r r Branch tachycardi tachycardi a) [...] 00:00: [place] involving involving 00 Medi kwame crow crow Branch coronary coronary artery of artery of crow crow heart heart without without angina angina pectoris pectoris Snores Snores Disease Active Univers 1-12 ity of 00:00: [place] [facility] Cigarette Cigarette Disease Active Uni vers smoker smoker 1-12 ity of 00:00: [place] 00 Medical Branch Primary Primary Disease Active Univers hypertensi hypertensi 1-12 it y of on on 00:00: [place] [facility] Other Other Disease Active Univers hyperlipid hyperlipid 1-12 it y of emia emia 00:00: [place] 00 Medical Branch Coronary Coronary Disease Active Unive rs artery artery 1-12 ity of disease disease 00:00: [place] involving involving 00 Medi kwame crow crow Branch coronary coronary artery of artery of crow crow heart heart without without angina angina pectoris [...] Bilateral Disease Active Uni vers acute acute 3- ity of otitis otitis 00:00: [place] media, media, 00 Medical recurrence recurrence Br anch not not specified, specified, unspecifie unspecifie d otitis d otitis media type media type Lumbar Lumbar Disease Active Univers spinal spinal 3- ity of stenosis stenosis 00:00: [place] 00 [...] a a 3-11 ity of 00:00: [place] 00 Medical Branch Bipolar Bipolar Disease Active Univers disorder, disorder, 3-11 ity of in partial in partial 00:[place] remission, remission, 00 Me dical most most Branch recent recent episode episode manic manic 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 3- it y of disorder disorder 00:00: [place] 00 Medical Branch Breast Breast Disease Active Univers mass, left mass, left 09-17 it y of 00:00: [place] 00 Medical Branch Anxiety Anxiety Disease Active Univers 3 ity of 00:00: Medical Branch Lower back Lower back Disease Active U nivers pain pain 09-17 ity of 00:: Medical Branch High blood High blood Disease Active U nivers pressure pressure 09-17 ity of 00:: Medical Branch COPD COPD Disease Active Univers [...] 00 Center GREEN Allergy Active High Other [facility] TEA 9-10 [facility] 00:00: Medical 00 Center LEVETIRA Allergy Active High N\\T\\V [facility] CETAM 9-10 [facility] 00:00: [...] 00:00: seizure Medical reaction 00 Center s Green Drug Active Other (See Seizure [facility] Tea Allergy Comments) 9-10 like [facility] 00:00: activity Medical 00 Center Levetira Drug Active Nausea And Intensifi C [facility] cetam Allergy Vomiting 9-10 es [facility] 00:00: seizure Medical 00 Center LEVETIRA DRUG Active Other-Cmnt Univ ers CETAM INGREDI 11-17 ity of 00:00: Medical Branch Levetira Propensi Active Other - See Makes U nivers cetam ty to comments 11-17 seizures ity of adverse 00:00: worse [place] reaction 00 Medical s Branch FLUOXETI Allergy Active Med Rash 2023-0 [facility] NE 1-14 00:00: 00 Green Propensi Active [facility] Tea ty to 08-02 [facility] adverse 00:00: Medical reaction 00 Center s Fluoxeti Propensi Active Rash [facility] ne ty to 08-02 [facility] adverse 00:00: Medical reaction 00 Center s GREEN Allergy Active [facility] TEA 08-02 [facility] 00:00: Medical 00 Center Fluoxeti Propensi Active Unknown - Uni vers ne ty to See comments 03-25 ity of adverse 00:00: [place] reaction 00 Medical s Branch FLUOXETI DRUG Active Unknown-Cmnt Un lois NE INGREDI 03-25 ity of 00:00: [place] [facility] DICLOFEN DRUG Active HYPERTENSION Un lois AC INGREDI 11-20 ity of 00:00: [place] [facility] Diclofen Propensi Active Hypertension 2015- [...] 00 Medical Branch Fluoxeti Propensi Active Hives 2014-0 Univer s ne Hcl ty to 03-19 ity of adverse 00:00: [place] reaction 00 Medical s Branch Family History Family Member Diagnosis Comments Start Date Stop Date Source Natural mother Alcohol abuse [facility] Natural mother Cancer [facility] Natural mother Diabetes [facility] Natural mother Heart disease [facility] Natural mother Hyperlipidemia [facility] Natural mother Kidney disease [facility] Natural mother Stroke [facility] Natural mother Alcohol abuse [facility] Natural mother Stroke [facility] Paternal uncle Diabetes [facility] Social History Social Habit Start Date Stop Date Quantity Comments Source History SDOH Social Unive rsity of Connections [facility] Together Branch History SDOH Social Unive rsity of Connections [facility] [place] [facility] History SDOH Social Unive rsity of [facility] Medical Membership Branch History SDOH Social Unive rsity of [facility] Medical Meetings Branch History SDOH [facility] Alcohol Frequency Medical Center History SDOH [facility] Alcohol Std Drinks Medica l Center History SDOH [facility] Alcohol Binge Medical [place] [facility] History SDOH [facility] Last Year Sexual orientation [facility] Alcohol intake 2023-06-02 2023-06-02 .57 /d [facility] 00:00:00 00:00:00 Medical Center Exposure to 2023-05-18 2023-05-[address] [facility] SARS-CoV-2 (event) 00:00:00 07:28:00 [facility] Cigarettes smoked 2023-05-26 2023-05-[address] [facility] current (pack per 00:00:00 00:00:00 Medical Center day) - Reported Tobacco use and 2023-05-26 2023-05-[address] [facility] exposure 00:00:00 00:00:00 tobacco non-user Medical Center Cigarette 2023-05-26 2023-05-[address] [facility] pack-years 00:00:00 00:00:00 Medical Center History SDOH 2023-05-26 2023-05-[address] [facility] Housing Unable to 00:00:00 00:00:00 Medical Center Pay - In the last 12 months, was there a time when you were not able to pay the mortgage or rent on time? History of Social 2023-05-26 2023-05-[address] [facility] function 00:00:00 00:00:00 Medical Center History of tobacco 1987-05-22 2023-05-[address] [facility] use 00:00:00 00:00:00 Medical Center History SDOH 2023-03-30 2023-03-[address] [facility] Housing Places 00:00:00 00:00:00 Medical Ce nter Lived Alcohol Comment 2023-03-29 2023-03-[address] [facility] 00:00:00 00:00:00 Medical Center History SDOH Social 2022-08-01 2022-08-01 5 Unive rsity of Connections Phone 00:00:00 00:00:00 [facility] edical Branch History SDIL Social 2022-08-01 2022-08-01 5 Unive rsity of Connections Living 00:00:00 00:00:00 [place] [facility] History SDOH 2022-08-01 2022-08-01 0 University o f Physical Activity 00:00:00 00:00:00 [facility] edical DPW Branch History SDOH 2022-08-01 2022-08-01 0 University o f Physical Activity 00:00:00 00:00:00 [facility] edical MPS Branch History SDOH 2022-08-01 2022-08-01 3 University o f Financial 00:00:00 00:00:00 [place] [facility] History SDOH Food 2022-08-01 2022-08-01 1 Univers ity of Worry 00:00:00 00:00:00 [place] [facility] History SDOH Food 2022-08-01 2022-08-01 1 Univers ity of Scarcity 00:00:00 00:00:00 [place] [facility] History SDIL 2022-08-01 2022-08-01 2 University o f Transport Med 00:00:00 00:00:00 [place] Medic al Branch History SDIL 2022-08-01 2022-08-01 2 University o f Transport Non-Med 00:00:00 00:00:00 [facility] edical Branch Education 2022-07-31 2022-07-31 14 University of 00:00:00 00:00:00 [facility] [place] Sex Ass[birth year] At [birth year] [facility] kes 00:00:00 00:00:00 [facility] Center Smoking Status Start Date Stop Date Source Ex-smoker 2023-05-26 00:00:00 2023-05-26 00:00:00 [facility] Smokes tobacco daily 2023-03-29 00:00:00 [facility] Medications Ordered Filled Start Stop Current Ordering Indication Dosage Frequency Signature Comments Components Source Medication Medication Date Date Medication? Clinician (SIG) Name Name tamsulosin 2022-2022- Yes .4mg QD Take 1 [facility] (FLOMAX) 08-17 12-04 capsule [facility] 0.4 mg Cap 00:00: 23:59 (0.4 mg Med ical 24 hr 00 :00 total) by Center capsule mouth daily for 5 days. metoprolol 2022-07 Yes 25mg QD Take 1 [facility] succinate 08-16 tablet (25 [facility] (TOPROL-XL) 19:45: mg total) M edical 25 MG 24 hr 32 by mouth Cent er tablet daily. varenicline 2022-07 Yes 1mg Q.5D Take [address] (CHANTIX) 1 08-16 tablet (1 [facility] mg tablet 19:45: mg total) Med ical 32 by mouth 2 Center (two) times daily Give with meals and with a full glass of water.. albuterol 2022-07 Yes 1{puff} Inhale [address] HFA 08-16 puff by [facility] (VENTOLIN 19:45: mouth via Med ical HFA) 90 32 inhaler Center mcg/actuati every 6 on inhaler (six) hours as needed for Wheezing. fluticasone 2022-07 Yes QD Inhale by C [facility] -umeclidin- 08-16 mouth via [facility] vilanter 19:45: inhaler Medica l (Trelegy 32 daily. Center Ellipta) 200-62.5-25 mcg DsDv atorvastati 2022-07 Yes 20mg QD Take [address] n (LIPITOR) 08-16 tablet (20 [facility] 20 MG 19:45: mg total) Medical tablet 32 by mouth Center daily. acetaminoph 2022-07- No 1{tbl} Take [address] en-codeine 08-16 11-28 tablet by [facility] (TYLENOL 18:02: 00:00 mouth Medical #3) 300-30 00 :00 every 4 Center mg per (four) tablet hours as needed for Pain. DULoxetine 2022-07- Yes 30mg QD Take [address] (CYMBALTA) 08-16 02-26 capsule [facility] 30 MG 00:00: 23:59 (30 mg Medical capsule 00 :00 total) by Center mouth daily for 90 days. metroNIDAZO 2022-07- Yes 500mg Take [address] LE (FLAGYL) 08-16 12-16 tablet [facility] 500 MG 00:00: 23:59 (500 mg Medical tablet 00 :00 total) by Center mouth every 8 (eight) hours for 18 days. ciprofloxac 2022-07- Yes 500mg Q.5D Take [address] in HCl 08-1616 tablet [facility] (CIPRO) 500 00:00: 23:59 (500 mg Me dical MG tablet 00 :00 total) by Cente r mouth 2 (two) times daily for 18 days. cyclobenzap 2022-07- Yes 10mg Q.[id number] Take [address] rine 08-16 1208 [id number] tablet (10 [facility] (FLEXERIL) 00:00: 23:59 3D mg total) M edical 10 MG 00 :00 by mouth 3 Center tablet (three) times daily for 10 days. oxyCODONE 2022-07- Yes 10mg Take 1 [facility] (OXY-IR) 10 08-16 tablet (10 L ukes mg tablet 00:00: 23:59 mg total) Me dical 00 :00 by mouth Center every 8 (eight) hours as needed for up to 10 days. Max Daily Amount: 30 mg nystatin 2022-07- Yes [id number] Q.25D Take [address] (MYCOSTATIN 08-1603 (500,000 [facility] ) 100,000 00:00: 23:59 Units Medica l unit/mL 00 :00 total) by Center suspension mouth 4 (four) times daily for 5 days. dexAMETHaso 2022-07- Yes 1mg Take 0.[address] ne -18 11-20 tablets (1 [facility] (DECADRON) 00:00: 23:59 [...] dinner for 2 days. dexAMETHaso 2022-07- No 1mg Take 0.[address] ne 1-18 11-20 tablets (1 [facility] (DECADRON) 00:00: 23:59 mg total) M edical 2 MG tablet 00 :00 by mouth 2 Ce nter (two) times daily with breakfast and dinner for 2 days. dexAMETHaso 2022-07- No 1mg Take 0.[address] ne 1-18 11-20 tablets (1 [facility] (DECADRON) 00:00: 23:59 mg total) M edical 2 MG tablet 00 :00 by mouth 2 Ce nter (two) times daily with breakfast and dinner for 2 days. dexAMETHaso 2022-07- Yes 2mg Take 1 [facility] [...] and dinner for 1 day. dexAMETHaso 2022-07- No 2mg Take [address] [facility] ne 1-17 11-18 tablet (2 [facility] (DECADRON) 00:00: 23:59 mg total) M edical 2 MG tablet 00 :00 by mouth 2 Ce nter (two) times daily with breakfast and dinner for 1 day. dexAMETHaso 2022-07- No 2mg Take 1 [facility] [...] times daily for 14 days. cyclobenzap 2022-07- No 10mg Q.[id number] Take [address] [facility] rine -16 - [id number] tablet (10 [facility] (FLEXERIL) 00:00: 00:00 3D mg total) M edical 10 MG 00 :00 by mouth 3 Center tablet (three) times daily for 10 days. methocarbam 2022-07- No 500mg Q.25D Take [address] oL -16 - tablet [facility] (ROBAXIN) 00:00: 00:00 (500 mg Medi kwame 500 MG 00 :00 total) by Center tablet mouth 4 (four) times daily for 10 days. cyclobenzap 2022-07- Yes 10mg Q.[id number] Take [address] [facility] rine -16 - [id number] tablet (10 [facility] (FLEXERIL) 00:00: 23:59 [...] for 10 days. cyclobenzap 2022-07- Yes 10mg Q.[id number] Take [address] [facility] rine 08-04 [id number] tablet (10 [facility] (FLEXERIL) 00:00: 23:59 [...] for 10 days. cyclobenzap 2022-07- Yes 10mg Q.[id number] Take [address] [facility] rine 08-04 [id number] tablet (10 [facility] (FLEXERIL) 00:00: 23:59 [...] times daily for 10 days. lactulose 2022-07- Yes 20g Q.[id number] Take [address] (CHRONULAC) 08-04 [id number] mLs (20 g [facility] 20 gram/30 00:00: 23:59 3D total) by M edical mL solution 00 :00 mouth 3 Cente r (three) times daily for 7 days. ondansetron 2022-07- Yes 4mg Take [address] [facility] (ZOFRAN-ODT 1-16 11-23 tablet (4 [facility] ) 4 MG 00:00: 23:59 mg total) Medic al disintegrat 00 :00 by mouth Cent er ing tablet every 6 (six) hours as needed for up to 7 days. lactulose 2022-07- Yes 20g Q.[id number] Take [address] (CHRONULAC) -16 - [id number] mLs (20 g [facility] 20 gram/30 00:00: [...] for up to 7 days. lactulose 2022-07- No 20g Q.[id number] Take [address] (CHRONULAC) -16 - [id number] mLs (20 g [facility] 20 gram/30 00:00: 23:59 3D total) by M edical mL solution 00 :00 mouth 3 Cente r (three) times daily for 7 days. ondansetron 2022-07- No 4mg Take [address] [facility] [address] (ZOFRAN-ODT -23 tablet (4 [facility] ) 4 MG 00:00: 23:59 mg total) Medic al disintegrat 00 :00 by mouth Cent er ing tablet every 6 (six) hours as needed for up to 7 days. lactulose 2022-07- No 20g Q.[id number] Take [address] (CHRONULAC) -16 11- [id number] mLs (20 g [facility] 20 gram/30 00:00: [...] QD Take 1 [facility] succinate 1-09 tablet (25 [facility] (TOPROL-XL) 15:23: mg total) M edical 25 MG 24 hr 22 by mouth Cent er tablet daily. varenicline 2022-07 Yes 1mg Q.5D Take [address] (CHANTIX) 1 -09 tablet (1 [facility] mg tablet 15:23: [...] QD Take [address] [facility] [address] (CYMBALTA) 9-15 -14 capsule [facility] 30 MG 00:00: 23:59 (30 mg Medical capsule 00 :00 total) by Center mouth daily. lisinopriL 2023- Yes 5mg QD Take [address] [facility] (PRINIVIL,Z 04-0314 tablet (5 [facility] ESTRIL) 5 00:00: [...] QD Take [address] [facility] [address] (LASIX) 20 04-0314 tablet (20 [facility] MG tablet 00:00: 23:59 mg total) Me dical 00 :00 by mouth Center daily. DULoxetine 2023- Yes 30mg QD Take [address] [facility] [address] (CYMBALTA) 915 -14 capsule [facility] 30 MG 00:00: 23:59 (30 mg Medical capsule 00 :00 total) by Center mouth daily. lisinopriL 2023- Yes 5mg QD Take [address] [facility] (PRINIVIL,Z 04-0314 tablet (5 [facility] ESTRIL) 5 00:00: [...] QD Take [address] [facility] (LASIX) 20 04-03- tablet (20 [facility] MG tablet 00:00: [...] QD Take [address] [facility] (LASIX) 20 04-03- tablet (20 [facility] MG tablet 00:00: [...] QD Take [address] [facility] (LASIX) 20 04-0314 tablet (20 [facility] MG tablet 00:00: [...] for 90 days. gabapentin 2022- Yes 300mg Q.[id number] Take [address] [facility] [address] (NEURONTIN) 04-03-14 [id number] capsule [facility] 300 MG 00:00: 23:59 3D (300 mg Medical capsule 00 :00 total) by Center mouth 3 (three) times daily for 90 days. aspirin 81 2022- Yes 81mg QD Take [address] [facility] MG EC -03 07-14 tablet (81 [facility] tablet 00:00: 23:59 mg total) Medic al 00 :00 by mouth Center daily for 90 days. divalproex 2022- Yes 500mg Q.5D Take [address] [facility] [address] (DEPAKOTE) -03 07-14 tablet [facility] 500 MG EC 00:00: 23:59 (500 mg Medi kwame tablet 00 :00 total) by Center mouth 2 (two) times daily for 90 days. gabapentin 2022-0 2022- Yes 300mg Q.[id number] Take [address] (NEURONTIN) -15 12-14 [id number] capsule [facility] 300 MG 00:00: 23:59 3D (300 mg Medical capsule 00 :00 total) by Center mouth 3 (three) times daily for 90 days. aspirin 81 2022-0 202- Yes 81mg QD Take [address] [facility] [...] 90 days. gabapentin 2022-0 2022- Yes 300mg Q.[id number] Take [address] [facility] [address] (NEURONTIN) 04-03-14 [id number] capsule [facility] 300 MG 00:00: 23:59 3D [...] 90 days. gabapentin 2022-0 2022- Yes 300mg Q.[id number] Take [address] [facility] [address] (NEURONTIN) 9-15 12-14 [id number] capsule [facility] 300 MG 00:00: 23:59 3D (300 mg Medical capsule 00 :00 total) by Center mouth 3 (three) times daily for 90 days. aspirin 81 2022-0 202- Yes 81mg QD Take [address] [facility] [address] [...] for 90 days. gabapentin 2022-2022- Yes 300mg Q.[id number] Take [address] [facility] [address] (NEURONTIN) 04-03-14 [id number] capsule [facility] 300 MG 00:00: 23:59 3D [...] for 90 days. gabapentin 2022-2022- Yes 300mg Q.[id number] Take [address] [facility] [address] (NEURONTIN) 04-0314 [id number] capsule [facility] 300 MG 00:00: 23:59 3D (300 mg Medical capsule 00 :00 total) by Center mouth 3 (three) times daily for 90 days. aspirin 81 2022- Yes 81mg QD Take [address] [facility] [address] MG EC 15 12-14 tablet (81 [facility] tablet 00:00: 23:59 mg total) Medic al 00 :00 by mouth Center daily for 90 days. divalproex 2022-2022- Yes 500mg Q.5D Take [address] [facility] [address] (DEPAKOTE) 915 12-14 tablet [facility] 500 MG EC 00:00: 23:59 (500 mg Medi kwame tablet 00 :00 total) by Center mouth 2 (two) times daily for 90 days. gabapentin 2022-2022- Yes 300mg Q.[id number] Take [address] [facility] [address] (NEURONTIN) 9-15 12-14 [id number] capsule [facility] 300 MG 00:00: 23:59 3D [...] 90 days. gabapentin 2022-0 2022- Yes 300mg Q.[id number] Take [address] [facility] [address] (NEURONTIN) 9-15 12-14 [id number] capsule [facility] 300 MG 00:00: 23:59 3D [...] for 90 days. gabapentin 2022-2022- Yes 300mg Q.[id number] Take [address] [facility] [address] (NEURONTIN) 9-15 12-14 [id number] capsule [facility] 300 MG 00:00: 23:59 3D [...] 90 days. gabapentin 2022-0 2022- Yes 300mg Q.[id number] Take [address] [facility] [address] (NEURONTIN) 04-03-14 [id number] capsule [facility] 300 MG 00:00: 23:59 3D [...] for 90 days. gabapentin 2022-2022- Yes 300mg Q.[id number] Take [address] [facility] [address] (NEURONTIN) 04-03-14 [id number] capsule [facility] 300 MG 00:00: 23:59 3D (300 mg Medical capsule 00 :00 total) by Center mouth 3 (three) times daily for 90 days. aspirin 81 2022-0 2022- Yes 81mg QD Take [address] MG EC -03 07-14 tablet (81 [facility] tablet 00:00: 23:59 mg total) Medic al 00 :00 by mouth Center daily for 90 days. divalproex 2022-0 2022- Yes 500mg Q.5D Take [address] (DEPAKOTE) 9-15 12-14 tablet [facility] 500 MG EC 00:00: 23:59 (500 mg Medi kwame tablet 00 :00 total) by Center mouth 2 (two) times daily for 90 days. gabapentin 2022-0 2022- Yes 300mg Q.[id number] Take [address] [facility] [address] (NEURONTIN) -15 12-14 [id number] capsule [facility] 300 MG 00:00: 23:59 3D [...] for 90 days. gabapentin 2022- Yes 300mg Q.[id number] Take [address] [facility] [address] (NEURONTIN) 04-03 [id number] capsule [facility] 300 MG 00:00: 23:59 3D [...] for 90 days. gabapentin 2022- Yes 300mg Q.[id number] Take [address] [facility] [address] (NEURONTIN) 04-03 [id number] capsule [facility] 300 MG 00:00: 23:59 3D (300 mg Medical capsule 00 :00 total) by Center mouth 3 (three) times daily for 90 days. DULoxetine 2022- No 30mg QD Take [address] [facility] [address] (CYMBALTA) 04-03-28 capsule [facility] 30 MG 00:00: 00:00 (30 mg Medical capsule 00 :00 total) by Center mouth daily. lisinopriL 2022- No 5mg QD Take [address] [facility] [address] (PRINIVIL,Z 9-05-28 tablet (5 [facility] ESTRIL) 5 00:00: 00:00 mg total) Me dical MG tablet 00 :00 by mouth Center daily. lisinopriL 2023-0 2023- No 5mg QD Take [address] (PRINIVIL,Z 9-05-28 tablet (5 [facility] ESTRIL) 5 00:00: 00:00 mg total) Me dical MG tablet 00 :00 by mouth Center daily. lisinopriL 2023-0 2023- No 5mg QD Take [address] (PRINIVIL,Z 9-15 - tablet (5 [facility] ESTRIL) 5 00:00: 00:00 mg total) Me dical MG tablet 00 :00 by mouth Center daily. lisinopriL 2023-0 2023- No 5mg QD Take [address] (PRINIVIL,Z 9-05-28 tablet (5 [facility] ESTRIL) 5 00:00: 00:00 mg total) Me dical MG tablet 00 :00 by mouth Center daily. lisinopriL 2023-0 2023- No 5mg QD Take [address] (PRINIVIL,Z 04-03 tablet (5 [facility] ESTRIL) 5 00:00: 00:00 mg total) Me dical MG tablet 00 :00 by mouth Center daily. clonazePAM 2023-0 2023- Yes .25mg Take 0.5 [...] days. Max Daily Amount: 0.5 mg HYDROcodone 2023-0 2023- No 1{tbl} Take 1 [...] Take [address] -acetaminop 9-15 -25 tablet by Reina price (NORCO 00:00: 23:59 [...] :00 total) by Center mouth daily. furosemide 2022-3- No 20mg QD Take [address] [facility] [...] Take [address] [facility] (LASIX) 20 -15 09-15 tablet (20 [facility] kes MG tablet [...] :00 by mouth Center daily. aspirin 81 3-0 2023- No 81mg QD Take 1 [facility]I [...] 00 :00 by mouth Center daily. gabapentin 2022- No 300mg Q.[id number] Take [address] (NEURONTIN) 04-02 [id number] capsule [facility] 300 MG 00:00: 00:00 3D [...] Max Daily Amount: 4 tablets methocarbam 2022-0 3- No 500mg Q.25D Take [address] [facility] 04-02 [facility] (ROBAXIN) 00:00: 00:00 (500 mg Medi kwame 500 MG 00 :00 total) by Center tablet mouth 4 (four) times daily for 10 days. divalproex 2022-0 3- No 500mg Q.5D Take [address] [facility] [...] Amount: 0.5 mg gabapentin 2022-2022- No 300mg [id number] Take [address] [facility] (NEURONTIN) 04-02 [id number] [facility] 300 MG 00:00: 00:00 3D [...] times daily for 10 days. divalproex 2022-0 2023- No 500mg Q.5D Take [address] [facility] [...] 0.5 mg gabapentin 2022-0 2022- No 300mg Q.[id number] Take [address] [facility] (NEURONTIN) 04-02 [id number] [facility] 300 MG 00:00: 00:00 3D [...] 0.5 mg gabapentin 2022-0 2022- No 300mg Q.[id number] Take [address] [facility] (NEURONTIN) 04-02 [id number] [facility] 300 MG 00:00: 00:00 3D [...] Amount: 0.5 mg gabapentin 2022- No 300mg Q.[id number] Take [address] [facility] (NEURONTIN) 04-02 [id number] [facility] 300 MG 00:00: 00:00 3D [...] Amount: 0.5 mg gabapentin 2022-2022- No 300mg Q.[id number] Take [address] [facility] (NEURONTIN) 04-02 [id number] [facility] 300 MG 00:00: 00:00 3D [...] Amount: 0.5 mg gabapentin 2022-2022- No 300mg Q.[id number] Take [address] [facility] (NEURONTIN) 04-02 [id number] [facility] 300 MG 00:00: 00:00 3D [...] Amount: 0.5 mg gabapentin 2022-2022- No 300mg Q.[id number] Take [address] [facility] (NEURONTIN) 04-02 [id number] [facility] 300 MG 00:00: 00:00 3D [...] Amount: 0.5 mg gabapentin 2022-2022- No 300mg Q.[id number] Take [address] [facility] (NEURONTIN) 04-02 [id number] [facility] 300 MG 00:00: 00:00 3D [...] Amount: 0.5 mg gabapentin 2022- No 300mg Q.[id number] Take [address] [facility] (NEURONTIN) 04-02 [id number] [facility] 300 MG 00:00: 00:00 3D [...] days. Max Daily Amount: 4 tablets methocarbam 0 2022- No 500mg Q.25D Take 1 C [...] Amount: 0.5 mg gabapentin 2022-2022- No 300mg Q.[id number] Take [address] [facility] (NEURONTIN) 04-02 [id number] [facility] 300 MG 00:00: 00:00 3D [...] 0.5 mg gabapentin 2022-0 2022- No 300mg Q.[id number] Take [address] [facility] (NEURONTIN) 04-02 [id number] [facility] 300 MG 00:00: 00:00 3D (300 mg Medical capsule 00 :00 total) by Center mouth 3 (three) times daily for 90 days. HYDROcodone 2022-0 2022- No 1{tbl} Take 1 [facility] [...] 0.5 mg gabapentin 2022-0 2022- No 300mg Q.[id number] Take [address] [facility] (NEURONTIN) 04-02 [id number] [facility] 300 MG 00:00: 00:00 3D (300 mg Medical capsule 00 :00 total) by Center mouth 3 (three) times daily for 90 days. HYDROcodone 2022-0 2022- No 1{tbl} Take 1 [facility] [...] Amount: 0.5 mg gabapentin 2022- No 300mg Q.[id number] Take [address] [facility] [address] (NEURONTIN) 04-02 [id number] [facility] 300 MG 00:00: 00:00 3D [...] 15mg 15 mg, Unive rs (TORADOL) 12-11 Slow IV ity of injection 18:15: 17:25 Push, [place] 15 mg 00 :00 ONCE, 1 Medical dose, On Branch [place] 12/11/22 at 1315, MICHAEL iopamidol 2022- No [id number] 80mL 80 mL, U nivers (ISOVUE 12-11 Intravenou ity o f 370-500 mL) 16:30: 16:27 s, ONCE, 1 [place] injection 00 :00 dose, On Medica l 80 mL [place] Branch 12/11/22 at 1130, Routine nitroglycer 2022- No .5[in_u 0.5 Inch, Univers in (NITROL) 12-11 05-25 s] Transderma i ty of 2 % 15:30: 14:31 l (Apply [place] ointment 00 :00 To Skin), Medica l 0.5 Inch ONCE, 1 Branch dose, On [facility] 12/11/22 at 1030, MICHAEL aspirin 2022- No 324mg 324 mg, Unive rs chewable 12-11- Oral, ity of tablet 324 15:30: 14:30 ONCE, 1 [place] as mg 00 :00 dose, On [facility] 12/11/22 at 1030, Routine ondansetron 2022- No 4mg 4 mg, Slow Univers (ZOFRAN 12-11 IV Push, ity of (PF)) 15:30: 14:29 ONCE, 1 [place] injection 4 00 :00 dose, On Medi kwame mg [facility] 12/11/22 at 1030, MICHAEL LORazepam 2022- No 1mg 1 mg, Slow U nivers (ATIVAN) 12-11 IV Push, ity of injection 1 15:00: 14:57 ONCE, 1 [place] mg 00 :00 dose, On [facility] 12/11/22 at 1000, STAT Lacosamide Yes [id number] 100mg Take 1 [facility] (VIMPAT) 25 tablet by ity of 100 mg 00:00: [...] dose, On Medical 1,000 mg [facility] 11/18/22 Branc h at 0030, MICHAEL ondansetron 2022- No 4mg 4 mg, Slow Univers (ZOFRAN 11-18- IV Push, ity of (PF)) 04:45: 03:38 ONCE, 1 [place] injection 4 00 :00 dose, On Medi kwame mg [facility] 11/17/22 Branch at 2345, MICHAEL morpHINE (4 2022- No 4mg 4 mg, Slow Univers mg/mL) 11-18 IV Push, ity of injection 4 03:45: 03:38 ONCE, 1 [place] mg 00 :00 dose, On Medical [facility] 11/17/22 Branch at 2245, Routine methocarbam 2022- No 1000mg 1,000 mg, Univers oL 11-18 Intravenou ity of (ROBAXIN) 00:30: 23:47 s, ONCE, 1 [place] injection 00 :00 dose, On Medica l 1,000 mg [facility] 11/17/22 Bran h at 1930, MICHAEL methocarbam 2022- Yes [id number] 1000mg Take 2 [facility] oL 500 mg 5-02 tablets by ity of tablet 00:00: mouth 4 (four) Medical times Branch daily as needed for Pain (scale 7-10). methocarbam Yes [id number] 1000mg Take 2 [facility] oL 500 mg [...] :00 ONCE, 1 Medical dose, On Branch [facility] 11/17/22 at 1900, Routine morpHINE (4 2022-2022- No 4mg 4 mg, Slow Univers mg/mL) 11-17 IV Push, ity of injection 4 23:45: 23:49 ONCE, 1 [place] mg 00 :00 dose, On Medical [facility] 11/17/22 Branch at 1845, Routine ondansetron 2022- No 4mg 4 mg, Slow Univers (ZOFRAN 5-01 05-01 IV Push, ity of (PF)) 23:15: 23:06 [...] 1-13 by mouth ity of 23:49: daily. [place] 34 Medical Branch omega-3 0 Yes 1g Take 1 g Univer s fatty 1-13 by mouth ity of acids-vitam 23:49: daily. [place] in E (FISH 34 Medical OIL) 1,000 Branch mg capsule loratadine Yes Take by Univ ers (CLARITIN 1-13 mouth ity of LIQUI-GEL) 23:49: daily. [place] 10 mg 34 Medical capsule Branch ondansetron 2023-0 Yes 4mg Take 4 mg U nivers 4 mg tablet 1-13 by mouth ity of 23:49: every 8 [place] [address] (eight) Medical hours as Branch needed. pantoprazol 2022-0 Yes 40mg Take 40 mg Univers e 40 mg EC 1-13 by mouth ity o f tablet 23:49: daily. [address] MULTIVITAMI Yes 1{tbl} Take 1 Tab Univers N ORAL 1-13 by mouth ity of 23:49: daily. [address] omega-3 0 Yes 1g Take 1 [...] by mouth ity of 23:49: every 8 [place] [address] (eight) Medical hours as Branch needed. pantoprazol 2022-0 Yes 40mg Take 40 mg Univers e 40 mg EC 1-13 by mouth ity o f tablet 23:49: daily. [address] MULTIVITAMI Yes 1{tbl} Take 1 Tab Univers N ORAL 1-13 by mouth ity of 23:49: daily. [address] omega-3 0 Yes 1g Take 1 [...] by mouth ity of 23:49: every 8 [place] [address] (eight) Medical hours as Branch needed. pantoprazol 2022-0 Yes 40mg Take 40 mg Univers e 40 mg EC 1-13 by mouth ity o f tablet 23:49: daily. [address] MULTIVITAMI 2023-0 Yes 1{tbl} Take 1 Tab Univers N ORAL 1-13 by mouth ity of 23:49: daily. [address] omega-3 2022-0 Yes 1g Take 1 g Univer s fatty 1-13 by mouth ity of acids-vitam 23:49: daily. [place] in [place] (FISH 34 Medical OIL) 1,000 Branch mg capsule loratadine 0 Yes Take by Univ ers (CLARITIN 1-13 mouth ity of LIQUI-GEL) 23:49: daily. [place] 10 mg 34 Medical capsule [place] ondansetron 0 Yes 4mg Take 4 mg U nivers 4 mg tablet 1-13 by mouth ity of 23:49: every 8 [place] [address] (eight) Medical hours as Branch needed. pantoprazol 2022-0 Yes 40mg Take 40 mg Univers e 40 mg EC 1-13 by mouth ity o f tablet 23:49: daily. [address] MULTIVITAMI 0 Yes 1{tbl} Take 1 Tab Univers N ORAL 1-13 by mouth ity of 23:49: daily. [address] omega-3 2022-0 Yes 1g Take 1 g Univer s fatty 1-13 by mouth ity of acids-vitam 23:49: daily. [place] in [place] (FISH 34 Medical OIL) 1,000 Branch mg capsule loratadine 0 Yes Take by [facility] ers (CLARITIN 1-13 mouth ity of LIQUI-GEL) 23:49: daily. [place] 10 mg 34 Medical capsule [place] ondansetron 2022-0 Yes 4mg Take 4 mg U nivers 4 mg tablet 1-13 by mouth ity of 23:49: every 8 [place] [address] (eight) Medical hours as Branch needed. pantoprazol 2022-0 Yes 40mg Take 40 mg Univers e 40 mg EC 1-13 by mouth ity o f tablet 23:49: daily. [address] benzonatate 2022-0 Yes 100mg 100 mg, Un lois (TESSALON 1-13 Oral, Q8H, ity of PERLES) 20:00: [place] capsule 100 00 on Thu Medica l mg 08/01/22 at [place] 1400, Until Discontinu ed, Routine ipratropium 2022-0 [...] Shortness of Breath sulfur 2022-0 202- No [id number] 5mL 5 mL, Unive rs hexafluorid 08-01 Intravenou i ty of e microsphr 17:00: 17:00 s, ONCE, 1 [place] (LUMASON) 00 :00 dose, On Medica l injection 5 Fri Branch mL 08/01/22 at 1100, Routine
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 : WOODY DIEGO [...] at 0900, Until Discontinu ed, Routine levETIRAcet 2022-0 2022- No 500mg 500 mg, U nivers am (KEPPRA) 08-01 Oral, BID, i ty of tablet 500 14:00: 23:56 First dose [place] mg 00 :35 on Fri Medical 08/01/22 at Branch 0800, Until Discontinu ed, Routine carvediloL 2022-0 2022- No 6.25mg 6.25 mg, Univers (COREG) 08-01 Oral, BID ity of tablet 6.25 14:00: 17:29 MEALS, [place] as mg 00 :13 First dose Medical on [facility] 08/01/22 at 0800, Until Discontinu ed, Routine levETIRAcet 2022-0 2022- No 1000mg 1,000 mg, Univers am [...] Javier as mg 54 Starting Medical on [facility] 07/31/22 at 2352, Until Discontinu ed, Routine, Seizures, Agitation, Anxiety, ETOH / Cocaine Withdrawl foLIC acid 0 Yes 1mg 1 mg, Univer s (FOLATE) 08-01 Oral, ity of tablet 1 mg 05:45: DAILY, [place] 00 First dose Medical on [facility] 07/31/22 at 2345, Until Discontinu ed, Routine thiamine 0 Yes 100mg 100 mg, Unive rs (VITAMIN 08-01 Oral, ity of B1) tablet 05:45: DAILY, [place] 100 mg 00 First dose Medical on [facility] 07/31/22 at 2345, Until Discontinu ed, Routine LORazepam 0 2022- No .5mg 0.5 mg, Univ ers (ATIVAN) 08-01 Slow IV ity of injection 05:30: 05:29 Push, [place] 0.5 mg 00 :00 ONCE, 1 Medical dose, On Branch [facility] 07/31/22 at 2330, MICHAEL atorvastati 2022-0 Yes 40mg 40 mg, Univ ers n (LIPITOR) 08-01 Oral, QHS, it y of tablet 40 03:00: First dose [place] mg 00 on [facility] Medical 07/31/22 at Branch 2100, Until Discontinu ed, Routine diphenhydrA 0 Yes 25mg 25 mg, Univ ers MINE 1-13 Oral, ity of (BENADRYL) 00:32: Q6HPRN, [place] tablet 25 02 Starting Medica l mg on [facility] Branch 07/31/22 at 1832, Until Discontinu ed, Routine, Itching enoxaparin 0 Yes 40mg 40 mg, Unive rs (LOVENOX) 07-31 Subcutaneo ity of injection 23:00: us, DAILY, [place] 40 mg 00 First dose Medical on [facility] Branch 07/31/22 at 1700, Until Discontinu ed, Routine morpHINE (2 2022- No 2mg 2 mg, Slow Univers mg/mL) 07-3112 IV Push, ity of injection 2 23:00: 22:29 ONCE, 1 [place] mg 00 :00 dose, On Medical [facility] Branch 07/31/22 at 1700, Routine HYDROcodone 2022-0 Yes 1{tbl} 1 tablet, Univers -acetaminop 12 Oral, ity of hen (NORCO) 22:01: Q6HPRN, [place] as 10-325 mg 36 Starting Medica l tablet 1 on [facility] Branch tablet 07/31/22 at 1601, Until Discontinu ed, Routine, Pain (scale 7-10) HYDROcodone 2022-0 2022- No 1{tbl} 1 tablet, Univers -acetaminop 07-31 Oral, ity of hen (NORCO 22:01: 22:00 Q6HPRN, [place] as 5) 5-325 mg 34 :34 Starting Medi kwame tablet 1 on [facility] Branch tablet 07/31/22 at 1601, Until 08/02/22 at 1600, Routine, Pain (scale 4-6) acetaminoph 2022-0 Yes 650mg 650 mg, Un lois en 12 Oral, ity of (TYLENOL) 22:01: Q6HPRN, [place] tablet 650 33 Starting Medic al mg on [facility] Branch 07/31/22 at 1601, Until Discontinu [...] MICHAEL ipratropium 2022- No 3mL 3 mL, [facility] ers -albuteroL 07-31 Inhalation it y of (DUONEB) 19:30: 18:48 , ONCE, 1 [place] as 0.5 mg-3 00 :00 dose, On Medical mg(2.5 mg [place] Branch base)/3 mL 07/31/22 at nebulizer 1330, MICHAEL solution 3 mL pantoprazol Yes 40mg Take 40 mg Univers e 40 mg EC -12 by mouth ity o f tablet 17:15: daily. [place] 40 Medical Branch MULTIVITAMI Yes 1{tbl} Take 1 Tab Univers N ORAL -12 by mouth ity of 15:50: daily. [place] 57 Medical Branch loratadine 0 Yes Take by [facility] ers (CLARITIN -12 mouth ity of LIQUI-GEL) 15:50: daily. [place] 10 mg 57 Medical capsule Branch ondansetron 2023-0 Yes 4mg Take 4 mg U nivers [...] 00 THREE TIMES A DAY NEEDED. Methylpredn 2021-07 No [id number] 4mg Take 1 Univers isolone 4 0-22 10-24 tablet ity of mg tablet 00:00: 04:59 through [place] 00 :00 enteral Medical tube in [place] the morning for 1 dose. Methylpredn 2021-07 No [id number] 4mg Take 1 Univers isolone 4 0-21 [...] mg capsule loratadine 2021-07 Yes Take by [facility] ers (CLARITIN 0-20 mouth ity of LIQUI-GEL) [...] mg 00 First dose Medical on [facility] Branch 05/08/22 at 0900, Until Discontinu ed, Routine divalproex 2021-07 Yes 1000mg 1,000 mg, Univers (DEPAKOTE) 0-20 Oral, BID, ity of EC tablet 13:00: First dose [place] 1,000 mg 00 (after Medical last Branch modificati on) on [facility] 05/08/22 at 0800, Until Discontinu ed, Routine Methylpredn 2021-07- No 4mg 4 mg, Univ ers isolone 0-20 10-21 Oral, Q8H ity of (MEDROL) 08:50: 08:59 TAPER, 3 [place] tablet 4 mg 10 :00 doses, Medica l First dose Branch on [facility] 05/08/22 at 0400, Last dose on [facility] 05/08/22 at 2000, Routine acetaminoph 2021-07 Yes 1{tbl} 1 tablet, Univers en-codeine 0-20 Oral, ity of (TYLENOL 04:07: Q4HPRN, [place] #3) 300-30 01 Starting Medic al mg [...] Discontinu ed, Routine, Anxiety cyclobenzap 2021-07 Yes [id number] 5mg Take 1 Univers rine 5 mg 0-20 tablet by ity o f tablet 00:00: mouth in [place] 00 the Medical morning Branch and 1 tablet at noon and 1 tablet in the evening. cyclobenzap 2021-07 Yes [id number] 5mg Take 1 Univers rine 5 mg 0-20 tablet by ity o f tablet 00:00: mouth in [place] 00 the Medical morning Branch and 1 tablet at noon and 1 tablet in the evening. cyclobenzap 2021-07 Yes [id number] 5mg Take 1 Univers rine 5 mg 0-20 tablet by ity o f tablet 00:00: mouth in [place] 00 the [facility] morning Branch and 1 tablet at noon and 1 tablet in the evening. cyclobenzap 2021-07 Yes [id number] 5mg Take 1 Univers rine 5 mg 0-20 tablet by ity o f tablet 00:00: mouth in [place] 00 the [facility] morning Branch and 1 tablet at noon and 1 tablet in the evening. cyclobenzap 2021-07 Yes [id number] 5mg Take 1 Univers rine 5 mg 0-20 tablet by ity o f tablet 00:00: mouth in [place] 00 the [facility] and 1 tablet at noon and 1 tablet in the evening. cyclobenzap 2021-07 Yes [id number] 5mg Take 1 Univers rine 5 mg 0-20 tablet by ity o f tablet 00:00: mouth in [place] 00 the [facility] and 1 tablet at noon and 1 tablet in the evening. cyclobenzap 2021-07 Yes [id number] 5mg Take 1 Univers rine 5 mg 0-20 tablet by ity o f tablet 00:00: mouth in [place] 00 the [facility] and 1 tablet at noon and 1 tablet in the evening. DULoxetine 2021-07- No [id number] 60mg Take 2 Univers (CYMBALTA) 0-20 11-20 capsules ity of 30 mg 00:00: 05:59 by mouth [place] capsule 00 :00 in the [facility] for 30 days. divalproex 2021-07- No [id number] 750mg Take 3 Univers (DEPAKOTE) 0-20 11-20 tablets by it y of 250 mg EC 00:00: 05:59 mouth [place] tablet 00 :00 every 8 Medical (eight) Branch hours for 30 days. LORazepam 1 2021-07- No [id number] 1mg Take 1 Univers mg tablet 0-20 10-31 tablet by ity of 00:00: 04:59 mouth [place] 00 :00 every 6 Medical (six) Branch hours as needed for Anxiety or Agitation for up to 10 days. acetaminoph 2021-07- No 4647 1{tbl} Take 1 U nivers en-codeine 0-20 - tablet by ity of 300-30 mg 00:00: 04:59 mouth [place] tablet 00 :00 every 4 Medical (four) Branch hours as needed for Pain (scale 7-10) for up to 7 days. Indication s: acute pain Methylpredn 2021-07- No [id number] 4mg Take 1 Univers isolone 4 005-10 tablet by ity of mg tablet 00:00: 04:59 mouth [place] 00 :00 every 8 Medical (eight) Branch hours for 3 doses. divalproex 2021-07 No 750mg 750 mg, Un lois (DEPAKOTE) 019 - Oral, BID, it y of EC tablet 01:00: 09:40 First dose [place] 750 mg 00 :23 on [facility] 05/06/22 Branch at 2000, Until Discontinu ed, Routine levETIRAcet 2021-07 No 1500mg 1,500 mg, Univers am (KEPPRA) 005-06 Oral, BID, i ty of tablet 13:00: 18:38 First dose [place] 1,500 mg 00 :22 (after Medical last Branch modificati on) on [facility] 05/06/22 at 0800, Until Discontinu ed, Routine levETIRAcet 2021-07 No 1000mg 1,000 mg, Univers am (KEPPRA) 0-05-06 IV ity of in NACL 05:00: 05:46 Piggyback, [place] as (ISO-OS) 00 :00 ONCE, 1 Medical 1,000 dose, On Branch mg/100 mL [facility] RTU 05/06/22 at 0000, Administer over 15 Minutes, 100 mL methocarbam 2021-07 No 500mg 500 mg, U nivers oL 0-18 - Oral, QID, ity of (ROBAXIN) 02:15: 23:21 First dose [place] tablet 500 00 :42 on Mon Medical mg 05/05/22 Branch at 2115, Until Discontinu ed, Routine LORazepam 2021-07 No 2mg 2 mg, Univer s (ATIVAN) 005-06 Oral, ity of tablet 2 mg 01:30: 01:03 ONCE, 1 [place] 00 :00 dose, On Medical [facility] 05/05/22 at 2030, Routine levETIRAcet 2021-07 No 1000mg 1,000 mg, Univers am (KEPPRA) 0-18 10-18 Oral, BID, i ty of tablet 01:00: 04:48 First dose [place] 1,000 mg 00 :06 on [facility] 05/05/22 Branch at 2000, Until Discontinu ed, Routine enoxaparin 2021-07 Yes 40mg 40 mg, Unive rs (LOVENOX) 0-18 Subcutaneo ity of injection 00:15: us, Q24H, [place] as 40 mg 00 First dose Medical on [facility] 05/05/22 at 1915, Until Discontinu ed, Routine levETIRAcet 2021-07 No 1000mg 1,000 mg, Univers am (KEPPRA) 0- 10 IV ity of in NACL 19:45: 20:05 Piggyback, [place] as (ISO-OS) 00 :00 ONCE, 1 Medical 1,000 dose, On Branch mg/100 mL [facility] RTU 05/05/22 at 1445, Administer over 15 Minutes, 100 mL clonazePAM 2021-07 Yes .5mg 0.5 mg, Univ ers (KLONOPIN) 0-17 Oral, BID, ity of tablet 0.5 19:30: First dose [place] mg 00 on [facility] 05/05/22 Branch at 1430, Until Discontinu ed, Routine ibuprofen 2021-07 Yes 600mg 600 mg, Univ ers (IBU) 0-17 Oral, TID ity of tablet 600 19:30: MEALS, [place] mg 00 First dose Medical on [facility] 05/05/22 at 1430, Until Discontinu ed, Routine gabapentin 2021-07 Yes 300mg 300 mg, Uni vers (NEURONTIN) 0-17 Oral, TID, it y of capsule 300 19:30: First dose [place] mg 00 on [facility] 05/05/22 Branch at 1430, Until Discontinu ed, Routine cyclobenzap 2021-07 Yes 5mg 5 mg, Unive rs rine 0-17 Oral, TID, ity of (FLEXERIL) 19:30: First dose [place] tablet 5 mg 00 on Mon Medica l 05/05/22 Branch at 1430, Until Discontinu ed, Routine acetaminoph 2021-07 Yes 1000mg 1,000 mg, Univers en 0-17 Oral, Q8H, ity of (TYLENOL) 19:30: First dose [place] tablet 00 on [facility] Medical 1,000 mg 05/05/22 Branch at 1430, Until Discontinu ed, Routine pantoprazol 2021-07 Yes 40mg 40 mg, Univ ers e 0-17 Oral, ity of (PROTONIX) 14:00: DAILY, [place] EC tablet 00 First dose Medi kwame 40 mg on [facility] Branch 05/05/22 at 0900, Until Discontinu ed, Routine docusate 2021-07 Yes 100mg 100 mg, Unive rs (COLACE) 0-17 Oral, ity of capsule 100 14:00: DAILY, [place] mg 00 First dose Medical on [facility] Branch 05/05/22 at 0900, Until Discontinu ed, Routine HYDROcodone 2021-07- No 1{tbl} 1 tablet, Univers -acetaminop 0-17 10-17 Oral, ity of hen (NORCO) 10:32: 19:18 Q6HPRN, [place] 10-325 mg 02 :52 Starting Medica l tablet 1 on Mon Branch tablet 05/05/22 at 0532, Until Thu05/05/22 at [...] :14 Starting Medi kwame tablet 1 on Mon Branch tablet 05/05/22 at 0149, Until Thu05/05/22 at 0532, Routine, Pain (scale 7-10) acetaminoph 2021-07 No 325mg 325 mg, U nivers en 05-05 Oral, ity of (TYLENOL) 06:49: 19:18 Q4HPRN, [place] tablet 325 39 :52 Starting Medic al mg on [facility] 05/05/22 at 0149, Until [facility] 05/05/22 at 1418, Routine, Pain (scale 4-6) [...] at 2300, Routine aspirin 81 0 Yes [id number] 81mg Take 1 U nivers mg chewable 9-28 tablet by ity of tablet 00:00: mouth in [place] [address] the Medical morning. [place] aspirin 81 0 Yes [id number] 81mg Take 1 U nivers mg chewable 9-28 tablet by ity of tablet 00:00: mouth in [place] [address] the Medical morning. [place] aspirin 81 0 Yes [id number] 81mg Take 1 U nivers mg chewable 9-28 tablet by ity of tablet 00:00: mouth in [place] the Medical morning. [place] aspirin 81 0 Yes [id number] 81mg Take 1 U nivers mg chewable 9-28 tablet by ity of tablet 00:00: mouth in [place] the Medical morning. [place] aspirin 81 0 Yes [id number] 81mg Take 1 U nivers mg chewable 9-28 tablet by ity of tablet 00:00: mouth in [place] the Medical morning. [place] aspirin 81 2021-0 Yes [id number] 81mg Take 1 U nivers mg chewable 9-28 tablet by ity of tablet 00:00: mouth in [place] 00 the Medical morning. [place] aspirin 81 2021-0 Yes [id number] 81mg Take 1 U nivers mg chewable 9-28 tablet by ity of tablet 00:00: mouth in [place] 00 the Medical morning. Branch aspirin 81 Yes [id number] 81mg Take 1 U nivers mg chewable -28 tablet by ity of tablet 00:00: mouth in [place] 00 the Medical morning. Branch MULTIVITAMI Yes 1{tbl} Take 1 Tab Univers N ORAL 04-15 by mouth ity of 17:39: daily. [place] 14 Medical Branch omega-3 Yes 1g Take 1 g Univer s fatty 04-15 by mouth ity of acids-vitam 17:39: daily. [place] in [place] (FISH 14 Medical OIL) 1,000 Branch mg capsule loratadine Yes Take by [facility] ers (CLARITIN 04-15 mouth ity of LIQUI-GEL) 17:39: daily. [place] 10 mg 14 Medical capsule Branch ondansetron Yes 4mg Take 4 mg U nivers (ZOFRAN) 4 04-15 by mouth ity o f mg tablet 17:39: every 8 [place] 14 (eight) Medical hours as Branch needed. pantoprazol Yes 40mg Take 40 mg Univers e 04-15 by mouth ity of (PROTONIX) 17:39: daily. [place] 40 mg EC 14 Medical tablet Branch [...] Oral, ity of (TYLENOL 05:39: 14:39 Q6HPRN, [place] #4) 300-60 23 :42 Starting Medic al [...] (after Medical last Branch modificati on) on 04/14/22 at 2145, Until Discontinu ed, Routine ketorolac 2021- No 15mg 15 mg, Unive rs (TORADOL) 04-15 Slow IV ity of injection 02:13: 02:22 Push, [place] 15 mg 00 :00 ONCE, 1 Medical dose, On Branch [facility] 04/14/22 at 2115, Routine levETIRAcet Yes [id number] 1000mg Take 1 Univers am 1,000 mg 9-27 tablet by ity of tablet 00:00: mouth in [place] 00 the Medical morning Branch and 1 tablet in the evening. atorvastati Yes [id number] 40mg Take 1 Univers n 40 mg 9-27 tablet by ity of tablet 00:00: mouth at [place] [address] bedtime. Medical Branch atorvastati Yes [id number] 40mg Take 1 Univers n 40 mg 9-27 tablet by ity of tablet 00:00: mouth at [place] [address] bedtime. Medical Branch atorvastati Yes [id number] 40mg Take 1 Univers n 40 mg 9-27 tablet by ity of tablet 00:00: mouth at [place] [address] bedtime. Medical Branch atorvastati Yes [id number] 40mg Take 1 Univers n 40 mg 9-27 tablet by ity of tablet 00:00: mouth at [place] [address] bedtime. Medical Branch atorvastati Yes [id number] 40mg Take 1 Univers n 40 mg 9-27 tablet by ity of tablet 00:00: mouth at [place] [address] bedtime. Medical Branch atorvastati Yes [id number] 40mg Take 1 Univers n 40 mg 9-27 tablet by ity of tablet 00:00: mouth at [place] 00 bedtime. Medical Branch atorvastati Yes [id number] 40mg Take 1 Univers n 40 mg 9-27 tablet by ity of tablet 00:00: mouth at [place] 00 bedtime. Medical Branch atorvastati Yes [id number] 40mg Take 1 Univers n 40 mg 9-27 tablet by ity of tablet 00:00: mouth at [place] 00 bedtime. Medical Branch levETIRAcet 2021- No [id number] 1000mg Take 1 Univers am 1,000 mg 9-27 10-20 tablet by it y of tablet 00:00: 00:00 mouth in [place] 00 :00 the Medical morning Branch and 1 tablet in the evening. lidocaine 5 2021- No [id number] 1{patch Apply 1 Univers % (700 04-15 [...] 12 Medical patch 1 Hours, Branch Patch [id number], Starting on Thu04/14/22 at 1645, Until Discontinu ed, Routine, Localized pain aspirin Yes 81mg 81 mg, Univers chewable 04-14 Oral, ity of tablet 81 21:30: DAILY, [place] mg 00 First dose Medical on Thu [place] 04/14/22 at 1630, Until Discontinu ed, Routine acetaminoph Yes 650mg 650 mg, Un lois en 04-14 Oral, ity of (TYLENOL) 21:29: Q6HPRN, [place] tablet 650 25 Starting Medic al mg on [facility] 04/14/22 at 1629, Until Discontinu ed, Routine, Pain (scale 1-3), Temp > 38.5 C, Temp > 37.5 C HYDROcodone 2021- No 1{tbl} 1 tablet, Univers -acetaminop 04-14 Oral, ity of hen (NORCO) 21:29: 05:39 Q6HPRN, [place] 10-325 mg 02 :41 Starting Medica l tablet 1 on [facility] tablet 04/14/22 at 1629, Until 04/15/22 at 0039, Routine, Pain (scale 7-10), Pain (scale 4-6) sulfur 2021- No [id number] 5mL 5 mL, Univ ers hexafluorid 04-14 Intravenou i ty of e microsphr 16:45: 16:45 s, ONCE, 1 [place] (LUMASON) 00 :00 dose, On Medica l injection 5 [facility] mL 04/14/22 at 1145, Routine
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 : [employer] clopidogreL Yes 75mg 75 mg, Univ ers (PLAVIX) 75 04-14 Oral, ity of mg tablet 14:00: DAILY, [place] 75 mg 00 First dose Medical on [facility] 04/14/22 at 0900, Until Discontinu ed, Routine pantoprazol Yes 40mg 40 mg, Univ ers e 04-14 Oral, ity of (PROTONIX) 14:00: DAILY, [place] EC tablet 00 First dose Medi kwame 40 mg on [facility] 04/14/22 at 0900, Until Discontinu ed, [...] 00 :00 dose, On [facility] 04/13/22 at 2030, Routine methocarbam 2022-0 Yes 500mg 500 mg, Un lois oL 04-14 Oral, QID, ity of (ROBAXIN) 01:00: First dose [place] tablet 500 00 on [facility] mg 04/13/22 at Branch 1999, Until Discontinu ed, Routine heparin Yes 5000U 5,000 Univers (porcine) 04-14 Units, ity of injection 01:00: Subcutaneo [place] 5,000 Units 00 us, Q12H, Med ical First dose Branch on [place] 04/13/22 at 2000, Until Discontinu ed, Routine acetaminoph 2021- No 650mg 650 mg, U nivers en 04-14 Oral, ity of (TYLENOL) 00:23: 21:29 Q6HPRN, [place] tablet 650 25 :42 Starting Medic al mg on [facility] 04/13/22 at 1923, Until 04/14/22 at 1629, Routine, Pain (scale 1-3), Pain (scale 4-6), Temp > 38.5 C, Temp > 37.5 C lidocaine 2021- No 1{patch 1 Patch, Univers (LIDODERM) 04-14 } Topical, ity of 5 % (700 00:22: 13:51 Administer [place] mg/patch) 00 :00 over 12 Medical patch 1 Hours, Branch Patch ONCE, 1 dose, On [place] 04/13/22 at 1930, Routine FENTanyl PF No 50ug 50 mcg, Un lois (SUBLIMAZE 04-13 Slow IV ity o f (PF)) 20:30: 19:22 Push, [place] injection 00 :00 ONCE, 1 Medical 50 mcg dose, On [facility] 04/13/22 at 1530, Routine aspirin 2021- No 650mg 650 mg, Unive rs chewable 04-13 Oral, ity of tablet 650 20:15: 20:15 ONCE, 1 [place] mg 00 :00 dose, On Medical [facility] 04/13/22 at 1515, Routine clopidogreL 2021- No 300mg 300 mg, U nivers (PLAVIX) 04-13 Oral, ity of 300 mg 20:00: 19:15 ONCE, 1 [place] tablet 300 00 :00 dose, On Medic al mg [facility] 04/13/22 at 1500, Routine ondansetron 2021- No 4mg 4 mg, Slow Univers (ZOFRAN 04-13 IV Push, ity of (PF)) 19:30: 19:22 ONCE, 1 [place] injection 4 00 :00 dose, On Medi kwame mg [facility] 04/13/22 at 1430, MICHAEL iopamidol 2021- No [id number] 100mL 100 mL, Univers (ISOVUE 04-13 Intravenou ity o f 370-500 mL) 18:31: 18:32 s, ONCE, 1 [place] injection 00 :00 dose, On Medica l 100 mL [facility] 04/13/22 at 1345, Routine NaCl 0.9% Yes 5mL 5 mL, Slow Un lois (NS) 04-13 IV Push, ity of injection 5 18:14: PRN - SEE [place] mL 11 INSTRUCT Medical , Branch Starting on [place] 04/13/22 at 1314, Until Discontinu ed, 10 mL aspirin Yes 324mg 324 mg, Univer s chewable 08 Oral, ity of tablet 324 14:00: DAILY, [place] mg 00 First dose Medical on [facility] 11/24/21 at 0900, Until Discontinu ed, Routine [...] 1mg mg capsule 3-21 00:00: 00 Dose 2-0 No Unknown 3-16 [...] 1mg mg capsule 3-09 00:00: 00 hydroxyzine 2-0 No 1mg HCl 50 mg 3-09 tablet 00:00: 00 Prozac 20 2021-0 No 1mg mg capsule 3- 00:00: 00 Dose 2021-0 No Unknown 3-06 [...] ity of mg 01:58: 02:13 ONCE, 1 00 :00 dose, Sat Medical 03/16/21 at [...] ity of mg 01:58: 02:13 ONCE, 1 00 :00 dose, Sat Medical 03/16/21 at [...] Medica l mg(2.5 mg 03/16/21 at [facility])/3 mL 2100, MICHAEL nebulizer solution [...] Slow IV ity of succ 01:57: 02:11 [place], [place] (SOLU-MEDRO 00 :00 ONCE, 1 Medic [...] 2100, MICHAEL nebulizer solution 3 mL ipratropium 0 2020- No 3mL 3 mL, [...] Slow IV ity of succ 01:57: 02:11 [place], [place] (SOLU-MEDRO 00 :00 ONCE, 1 Medic al L) dose, Sat Branch injection 03/16/21 at 125 mg 2100, STAT ipratropium 2020-0 2021- No 3mL 3 mL, Univ ers -albuteroL 03-17 Inhalation it y of (DUONEB) 01:57: 02:15 , ONCE, 1 [place] 0.5 mg-3 00 :00 dose, Sat Medica l mg(2.5 mg 03/16/21 at [facility])/3 mL 2100, MICHAEL nebulizer solution 3 mL levoFLOXaci 2020- No [id number] 500mg Take 1 Univers n 500 mg 03-17 tablet by ity o f tablet 00:00: 04:59 mouth [place] 00 :00 daily for Medical 6 days. [place] levoFLOXaci 2020- No [id number] 500mg Take 1 Univers n 500 mg 03-17 tablet by ity o f tablet 00:00: 04:59 mouth [place] 00 :00 daily for Medical 6 days. [place] levoFLOXaci 2020- No [id number] 500mg Take 1 Univers n 500 mg 03-17 tablet by ity o f tablet 00:00: 04:59 mouth [place] 00 :00 daily for Medical 6 days. [place] levoFLOXaci 2020- No [id number] 500mg Take 1 Univers n 500 mg 03-17 tablet by ity o f tablet 00:00: 04:59 mouth [place] 00 :00 daily for Medical 6 days. [place] predniSONE No [id number] 30mg Take 3 Univers 10 mg 03-17 tablets by ity of tablet 00:00: 04:59 mouth [place] 00 :00 daily for Medical 4 days. Branch predniSONE 2020- No [id number] 30mg Take 3 Univers 10 mg 03-17 tablets by ity of tablet 00:00: 04:59 mouth [place] 00 :00 daily for Medical 4 days. Branch predniSONE 2020- No [id number] 30mg Take 3 Univers 10 mg 03-17 tablets by ity of tablet 00:00: 04:59 mouth [place] 00 :00 daily for Medical 4 days. Branch predniSONE 2020- No [id number] 30mg Take 3 Univers 10 mg 03-17 tablets by ity of tablet 00:00: 04:59 mouth [place] 00 :00 daily for Medical 4 days. [place] albuterol 2020- No [id number] 4{puff} 4 Puff, Univers (VENTOLIN) 03-15 Inhalation it y of inhaler 4 01:45: 00:44 , ONCE, 1 [place] Puff 00 :00 dose, [facility] Medical 03/14/21 at Branch 5, Routine dexamethaso 2020- No [id number] 10mg 10 mg, Univers ne 03-15 Intramuscu ity of (DECADRON) 01:45: 00:45 lar, ONCE, [place] injection 00 :00 1 dose, Medical 10 mg [facility] [place] 03/14/21 at 2045, Routine albuterol Yes [id number] 2.5mg Inhale 3 Univers 2.5 mg /3 8-27 mL every 4 ity of mL (0.083 00:00: (four) [place] %) 00 hours as Medical nebulizer needed for Bran ch solution Wheezing or Shortness of Breath. albuterol Yes [id number] 2.5mg Inhale 3 Univers 2.5 mg /3 8-27 mL every 4 ity of mL (0.083 00:00: (four) [place] %) 00 hours as Medical nebulizer needed for Bran ch solution Wheezing or Shortness of Breath. albuterol 0 Yes [id number] 2.5mg Inhale 3 Univers 2.5 mg /3 8-27 mL every 4 ity of mL (0.083 00:00: (four) [place] %) 00 hours as Medical nebulizer needed for Bran ch solution Wheezing or Shortness of Breath. albuterol Yes [id number] 2.5mg Inhale 3 Univers 2.5 mg /3 8-27 mL every 4 ity of mL (0.083 00:00: (four) [place] %) 00 hours as Medical nebulizer needed for Bran ch solution Wheezing or Shortness of Breath. albuterol 0 Yes [id number] 2.5mg Inhale 3 Univers 2.5 mg /3 8-27 mL every 4 ity of mL (0.083 00:00: (four) [place] %) 00 hours as Medical nebulizer needed for Bran ch solution Wheezing or Shortness of Breath. albuterol 2020-0 Yes [id number] 2.5mg Inhale 3 Univers 2.5 mg /3 8-27 mL every 4 ity of mL (0.083 00:00: (four) [place] %) 00 hours as Medical nebulizer needed for Bran ch solution Wheezing or Shortness of Breath. albuterol 2020-0 Yes [id number] 2.5mg Inhale 3 Univers 2.5 mg /3 8-27 mL every 4 ity of mL (0.083 00:00: (four) [place] %) 00 hours as Medical nebulizer needed for Bran ch solution Wheezing or Shortness of Breath. albuterol 2020-0 Yes [id number] 2.5mg Inhale 3 Univers 2.5 mg /3 8-27 mL every 4 ity of mL (0.083 00:00: (four) [place] %) 00 hours as Medical nebulizer needed for Bran ch solution Wheezing or Shortness of Breath. albuterol 2020-0 Yes [id number] 2.5mg Inhale 3 Univers 2.5 mg /3 8-27 mL every 4 ity of mL (0.083 00:00: (four) [place] %) 00 hours as Medical nebulizer needed for Bran ch solution Wheezing or Shortness of Breath. albuterol 2020-0 Yes [id number] 2.5mg Inhale 3 Univers 2.5 mg /3 8-27 mL every 4 ity of mL (0.083 00:00: (four) [place] %) 00 hours as Medical nebulizer needed for Bran ch solution Wheezing or Shortness of Breath. albuterol 2020-0 Yes [id number] 2.5mg Inhale 3 Univers 2.5 mg /3 8-27 mL every 4 ity of mL (0.083 00:00: (four) [place] %) 00 hours as Medical nebulizer needed for Bran ch solution Wheezing or Shortness of Breath. albuterol 2020-0 Yes [id number] 2.5mg Inhale 3 Univers 2.5 mg /3 8-27 mL every 4 ity of mL (0.083 00:00: (four) [place] %) 00 hours as Medical nebulizer needed for Bran ch solution Wheezing or Shortness of Breath. albuterol 2020-0 Yes [id number] 2.5mg Inhale 3 Univers 2.5 mg /3 8-27 mL every 4 ity of mL (0.083 00:00: ([facility]) [place] %) 00 hours as Medical nebulizer needed for Bran ch solution Wheezing or Shortness of Breath. albuterol 2020-0 Yes [id number] 2.5mg Inhale 3 Univers 2.5 mg /3 8-27 mL every 4 ity of mL (0.083 00:00: (four) [place] %) 00 hours as Medical nebulizer needed for Bran ch solution Wheezing or Shortness of Breath. albuterol 2020-0 Yes [id number] 2.5mg Inhale 3 Univers 2.5 mg /3 8-27 mL every 4 ity of mL (0.083 00:00: (four) [place] %) 00 hours as Medical nebulizer needed for Bran ch solution Wheezing or Shortness of Breath. albuterol 2020-0 Yes [id number] 2.5mg Inhale 3 Univers 2.5 mg /3 8-27 mL every 4 ity of mL (0.083 00:00: (four) [place] %) 00 hours as Medical nebulizer needed for Bran ch solution Wheezing or Shortness of Breath. albuterol 2020-0 Yes [id number] 2.5mg Inhale 3 Univers 2.5 mg /3 8-27 mL every 4 ity of mL (0.083 00:00: (four) [place] %) 00 hours as Medical nebulizer needed for Bran ch solution Wheezing or Shortness of Breath. albuterol 0 Yes [id number] 2.5mg Inhale 3 Univers 2.5 mg /3 [...] Administer over 15 Minutes, 100 mL levetiracet 2021-0 Yes Take by Uni vers am (KEPPRA 8-03 mouth. ity of ORAL) 19:45: [address] levetiracet 0 Yes Take by Uni vers am (KEPPRA 8-03 mouth. ity of ORAL) 19:45: [address] levetiracet 0 Yes Take by Uni vers am (KEPPRA 8-03 mouth. ity of ORAL) 19:45: [address] levetiracet 0 Yes Take by Uni vers am (KEPPRA 8-03 mouth. ity of ORAL) 19:45: [address] levetiracet 0 Yes Take by Uni vers am (KEPPRA 8-03 mouth. ity of ORAL) 19:45: [address] levetiracet Yes Take by Uni vers am (KEPPRA 8-03 mouth. ity of ORAL) 19:45: [address] LISINOPRIL- 2020- No Take by Un lois HYDROCHLORO 02-19 mouth. ity o f THIAZIDE 19:41: 00:00 [place] ORAL 15 :00 [facility] dicyclomine 2020- No 20mg 20 mg, Uni vers (BENTYL) 02-19 Intramuscu ity of injection 19:15: 19:04 lar, ONCE, [place] 20 mg 00 :00 1 dose, Medical [facility] 02/19/21 Branch at 1415, Routine proMETHazin 2020- No 25mg 25 mg, IV Univers e 02-19 Piggyback, ity of (PHENERGAN) 19:15: 19:03 ONCE, 1 [place] 25 mg in 00 :00 dose, Tue Medica l NaCl 0.9% 02/19/21 at [facility] h (NS) 50 mL 1415, 50 piggyback mL morpHINE 2020- No 4mg 4 mg, Slow Un lois injection 4 02-19 IV Push, ity of mg 17:15: 17:05 ONCE, 1 [place] 00 :00 dose, [facility] Medical 02/19/21 at Branch 1215, STAT NaCl 0.9% 2020- No 1000mL at 999 Uni vers (NS) bolus 02-1903 mL/hr, ity of infusion 17:15: 19:04 1,000 mL, [place] as 1,000 mL 00 :00 IV Medical Infusion, Branch ONCE, 1 dose, 02/19/21 at 1215, STAT ondansetron 2020- No 4mg 4 mg, Slow Univers (ZOFRAN 02-19 IV Push, ity of (PF)) 17:00: 15:59 ONCE, 1 [place] injection 4 00 :00 dose, Tue Med ical mg 02/19/21 at Branch 1200, MICHAEL iopamidol 2020- No [id number] 100mL 100 mL, Univers (ISOVUE 02-19 Intravenou ity o f 370-500 mL) 16:35: 16:45 s, ONCE, 1 [place] injection 00 :00 dose, Tue Medic al 100 mL 02/19/21 at Branch 1145, Routine levetiracet Yes Take by Uni vers am (KEPPRA 8-03 mouth. ity of ORAL) 14:45: [address] levetiracet 0 Yes Take by Uni vers am (KEPPRA 8-03 mouth. ity of ORAL) 14:45: [address] levetiracet 0 Yes Take by Uni vers am (KEPPRA 8-03 mouth. ity of ORAL) 14:45: [address] levetiracet 0 Yes Take by Uni vers am (KEPPRA 8-03 mouth. ity of ORAL) 14:45: [address] levetiracet 0 Yes Take by Uni vers am (KEPPRA 8-03 mouth. ity of ORAL) 14:45: [address] proMETHazin 0 Yes [id number] 25mg Take 1 Univers e 25 mg 8-03 tablet by ity of tablet 00:00: mouth [place] 00 every 6 Medical (six) Branch hours as needed for Nausea and Vomiting (N/V). dicyclomine Yes [id number] 20mg Take 1 Univers 20 mg 8-03 tablet by ity of tablet 00:00: mouth 4 [place] 00 (four) Medical times Branch daily as needed for Abdominal pain. proMETHazin 1-0 Yes [id number] 25mg Take 1 Univers e 25 mg 8-03 tablet by ity of tablet 00:00: mouth [place] 00 every 6 Medical (six) Branch hours as needed for Nausea and Vomiting (N/V). dicyclomine 2020-0 Yes [id number] 20mg Take 1 Univers 20 mg 8-03 tablet by ity of tablet 00:00: mouth (four) Medical times Branch daily as needed for Abdominal pain. proMETHazin 2020-0 Yes [id number] 25mg Take 1 Univers e 25 mg 8-03 tablet by ity of tablet 00:00: mouth [place] 00 every 6 Medical (six) Branch hours as needed for Nausea and Vomiting (N/V). dicyclomine 2020-0 Yes [id number] 20mg Take 1 Univers 20 mg 8-03 tablet by ity of tablet 00:00: mouth (four) Medical times Branch daily as needed for Abdominal pain. proMETHazin 2020-0 Yes [id number] 25mg Take 1 Univers e 25 mg 8-03 tablet by ity of tablet 00:00: mouth [place] 00 every 6 Medical (six) Branch hours as needed for Nausea and Vomiting (N/V). dicyclomine 2020-0 Yes [id number] 20mg Take 1 Univers 20 mg 8-03 tablet by ity of tablet 00:00: mouth (four) Medical times Branch daily as needed for Abdominal pain. proMETHazin 2020-0 Yes [id number] 25mg Take 1 Univers e 25 mg 8-03 tablet by ity of tablet 00:00: mouth [place] 00 every 6 Medical (six) Branch hours as needed for Nausea and Vomiting (N/V). dicyclomine 2020-0 Yes [id number] 20mg Take 1 Univers 20 mg 8-03 tablet by ity of tablet 00:00: mouth (four) Medical times Branch daily as needed for Abdominal pain. proMETHazin 202-0 Yes [id number] 25mg Take 1 Univers e 25 mg 8-03 tablet by ity of tablet 00:00: mouth [place] 00 every 6 Medical (six) Branch hours as needed for Nausea and Vomiting (N/V). dicyclomine 2021-0 Yes [id number] 20mg Take 1 Univers 20 mg 8-03 tablet by ity of tablet 00:00: mouth 4 00 (four) Medical times Branch daily as needed for Abdominal pain. proMETHazin 2020-0 Yes [id number] 25mg Take 1 Univers e 25 mg 8-03 tablet by ity of tablet 00:00: mouth [place] 00 every 6 Medical (six) Branch hours as needed for Nausea and Vomiting (N/V). dicyclomine 2020-0 Yes [id number] 20mg Take 1 Univers 20 mg 8-03 tablet by ity of tablet 00:00: mouth 4 00 (four) Medical times Branch daily as needed for Abdominal pain. proMETHazin 2020-0 Yes [id number] 25mg Take 1 Univers e 25 mg 8-03 tablet by ity of tablet 00:00: mouth [place] 00 every 6 Medical (six) Branch hours as needed for Nausea and Vomiting (N/V). dicyclomine 2020-0 Yes [id number] 20mg Take 1 Univers 20 mg 8-03 tablet by ity of tablet 00:00: mouth (four) Medical times Branch daily as needed for Abdominal pain. proMETHazin 2020-0 Yes [id number] 25mg Take 1 Univers e 25 mg 8-03 tablet by ity of tablet 00:00: mouth [place] 00 every 6 Medical (six) Branch hours as needed for Nausea and Vomiting (N/V). dicyclomine 2020-0 Yes [id number] 20mg Take 1 Univers 20 mg 8-03 tablet by ity of tablet 00:00: mouth (four) Medical times Branch daily as needed for Abdominal pain. proMETHazin 2020-0 Yes [id number] 25mg Take 1 Univers e 25 mg 8-03 tablet by ity of tablet 00:00: mouth [place] 00 every 6 Medical (six) Branch hours as needed for Nausea and Vomiting (N/V). dicyclomine 2020-0 Yes [id number] 20mg Take 1 Univers 20 mg 8-03 tablet by ity of tablet 00:00: mouth 4 00 (four) Medical times Branch daily as needed for Abdominal pain. proMETHazin 2020-0 Yes [id number] 25mg Take 1 Univers e 25 mg 8-03 tablet by ity of tablet 00:00: mouth [place] 00 every 6 Medical (six) Branch hours as needed for Nausea and Vomiting (N/V). dicyclomine 2021-0 Yes [id number] 20mg Take 1 Univers 20 mg 8-03 tablet by ity of tablet 00:00: mouth 4 (four) Medical times Branch daily as needed for Abdominal pain. proMETHazin 2020-0 Yes [id number] 25mg Take 1 Univers e 25 mg 8-03 tablet by ity of tablet 00:00: mouth [place] 00 every 6 Medical (six) Branch hours as needed for Nausea and Vomiting (N/V). dicyclomine 2020-0 Yes [id number] 20mg Take 1 Univers 20 mg 8-03 tablet by ity of tablet 00:00: mouth (four) Medical times Branch daily as needed for Abdominal pain. proMETHazin 2020-0 Yes [id number] 25mg Take 1 Univers e 25 mg 8-03 tablet by ity of tablet 00:00: mouth 00 every 6 Medical (six) Branch hours as needed for Nausea and Vomiting (N/V). dicyclomine 2020-0 Yes [id number] 20mg Take 1 Univers 20 mg 8-03 tablet by ity of tablet 00:00: mouth (four) Medical times Branch daily as needed for Abdominal pain. proMETHazin 2020-0 Yes [id number] 25mg Take 1 Univers e 25 mg 8-03 tablet by ity of tablet 00:00: mouth [place] 00 every 6 Medical (six) Branch hours as needed for Nausea and Vomiting (N/V). dicyclomine 1-0 Yes [id number] 20mg Take 1 Univers 20 mg 8-03 tablet by ity of tablet 00:00: mouth (four) Medical times Branch daily as needed for Abdominal pain. proMETHazin 2021-0 Yes [id number] 25mg Take 1 Univers e 25 mg 8-03 tablet by ity of tablet 00:00: mouth [place] 00 every 6 Medical (six) Branch hours as needed for Nausea and Vomiting (N/V). dicyclomine 2021-0 Yes [id number] 20mg Take 1 Univers 20 mg 8-03 tablet by ity of tablet 00:00: mouth (four) Medical times Branch daily as needed for Abdominal pain. proMETHazin 2021-0 Yes [id number] 25mg Take 1 Univers e 25 mg 8-03 tablet by ity of tablet 00:00: mouth [place] 00 every 6 Medical (six) Branch hours as needed for Nausea and Vomiting (N/V). dicyclomine 0 Yes [id number] 20mg Take 1 Univers 20 mg 8-03 tablet by ity of tablet 00:00: mouth 4 00 (four) Medical times Branch daily as needed for Abdominal pain. proMETHazin 0 Yes [id number] 25mg Take 1 Univers e 25 mg 8-03 tablet by ity of tablet 00:00: mouth [place] 00 every 6 Medical (six) Branch hours as needed for Nausea and Vomiting (N/V). dicyclomine 0 Yes [id number] 20mg Take 1 Univers 20 mg 8-03 tablet by ity of tablet 00:00: mouth (four) Medical times Branch daily as needed for Abdominal pain. proMETHazin 0 Yes [id number] 25mg Take 1 Univers e 25 mg 8-03 tablet by ity of tablet 00:00: mouth [place] 00 every 6 Medical (six) Branch hours as needed for Nausea and Vomiting (N/V). dicyclomine Yes [id number] 20mg Take 1 Univers 20 mg 8-03 tablet by ity of tablet 00:00: mouth (four) Medical times Branch daily as needed for Abdominal pain. proMETHazin 0 Yes [id number] 25mg Take 1 Univers e 25 mg 8-03 tablet by ity of tablet 00:00: mouth [place] 00 every 6 Medical (six) Branch hours as needed for Nausea and Vomiting (N/V). dicyclomine 0 Yes [id number] 20mg Take 1 Univers 20 mg 8-03 tablet by ity of tablet 00:00: mouth (four) Medical times Branch daily as needed for Abdominal pain. ZONISAMIDE Yes TAKE 1 Unive rs 100 mg 4-29 CAPSULE BY ity of capsule 00:00: MOUTH [place] 00 TWICE A Medical DAY Branch ZONISAMIDE 202- No TAKE 1 Univ ers 100 mg 4-29 08-03 CAPSULE BY ity of capsule 00:00: 00:00 MOUTH [place] 00 :00 TWICE A Medical DAY Branch ondansetron 2017-0 Yes 4mg Take 4 mg U nivers (ZOFRAN) 4 7-24 by mouth ity o f mg tablet 20:05: every 8 [place] [address] (eight) Medical hours as Branch needed. pantoprazol 2018-0 Yes 40mg Take 40 mg Univers e 7-24 by mouth ity of (PROTONIX) 20:05: daily. [place] 40 mg EC Medical tablet Branch ondansetron 2018-0 Yes 4mg Take 4 mg U nivers (ZOFRAN) 4 7-24 by mouth ity o f mg tablet 20:05: every 8 [place] [address] (eight) Medical hours as Branch needed. pantoprazol [...] o f mg tablet 20:05: every 8 [place] [address] (eight) Medical hours as Branch needed. pantoprazol 2018-0 Yes 40mg Take 40 mg Univers e 7-24 by mouth ity of (PROTONIX) 20:05: daily. [place] 40 mg EC Medical tablet Branch ondansetron 2018-0 Yes 4mg Take 4 mg U nivers (ZOFRAN) 4 7-24 by mouth ity o f mg tablet 20:05: every 8 [place] [address] (eight) Medical hours as Branch needed. pantoprazol 2018-0 Yes 40mg Take 40 mg Univers e 7-24 by mouth ity of (PROTONIX) 20:05: daily. [place] 40 mg EC Medical tablet Branch ondansetron 2018-0 Yes 4mg Take 4 mg U nivers (ZOFRAN) 4 7-24 by mouth ity o f mg tablet 20:05: every 8 [place] [address] (eight) Medical hours as Branch needed. pantoprazol [...] 7-24 by mouth ity of 19:58: daily. [place] [address] Medical Branch loratadine 0 Yes Take by [facility] ers (CLARITIN 7-24 mouth ity of LIQUI-GEL) 19:58: daily. [place] 10 mg 14 Medical capsule Branch MULTIVITAMI Yes 1{tbl} Take 1 Tab Univers N ORAL 7-24 by mouth ity of 19:58: daily. [place] [address] Medical Branch loratadine Yes Take by [facility] ers (CLARITIN 7-24 mouth ity of LIQUI-GEL) 19:58: daily. [place] 10 mg 14 Medical capsule Branch MULTIVITAMI Yes 1{tbl} Take 1 Tab Univers N ORAL 7-24 by mouth ity of 19:58: daily. [place] [address] Medical Branch loratadine Yes Take by [facility] ers (CLARITIN 7-24 mouth ity of LIQUI-GEL) 19:58: daily. [place] 10 mg 14 Medical capsule Branch MULTIVITAMI Yes 1{tbl} Take 1 Tab Univers N ORAL 7-24 by mouth ity of 19:58: daily. [place] [address] Medical Branch loratadine 0 Yes Take by [facility] ers (CLARITIN 7-24 mouth ity of LIQUI-GEL) 19:58: daily. [place] 10 mg 14 Medical capsule Branch MULTIVITAMI Yes 1{tbl} Take 1 Tab Univers N ORAL 7-24 by mouth ity of 19:58: daily. [place] [address] Medical Branch loratadine Yes Take by [facility] ers (CLARITIN 7-24 mouth ity of LIQUI-GEL) [...] 7-24 by mouth ity of 14:58: daily. [place] 14 Medical Branch loratadine Yes Take by [facility] ers (CLARITIN 7-24 mouth ity of LIQUI-GEL) 14:58: daily. [place] 10 mg 14 Medical capsule Branch MULTIVITAMI Yes 1{tbl} Take 1 Tab Univers N ORAL 7-24 by mouth ity of 14:58: daily. [place] 14 Medical Branch loratadine Yes Take by [facility] ers (CLARITIN 7-24 mouth ity of LIQUI-GEL) 14:58: daily. [place] 10 mg 14 Medical capsule Branch MULTIVITAMI Yes 1{tbl} Take 1 Tab Univers N ORAL 7-24 by mouth ity of 14:58: daily. [place] [address] Medical Branch loratadine Yes Take by [facility] ers (CLARITIN 7-24 mouth ity of LIQUI-GEL) [...] 40 00:00: daily. [place] mg tablet Medical [place] Vital Signs Vital Name Observation Time Observation Value Comments Source WEIGHT 2023-06-16 05:26:00 86.047 kg HEIGHT 2023-06-13 04:00:00 160 cm WEIGHT 2023-06-13 04:00:00 86.637 kg WEIGHT 2023-06-16 05:26:00 86.047 kg HEIGHT 2023-06-13 04:00:00 160 cm WEIGHT 2023-06-13 04:00:00 86.637 kg HEIGHT 2023-05-28 07:00:00 157.5 cm WEIGHT [...] 20:00:00 142 mm[Hg] Univer sity of pressure [facility] [place] Diastolic blood 2022-12-11 20:00:00 90 mm[Hg] Unive rsity of pressure [facility] [place] Respiratory rate 2022-12-11 20:00:00 24 /min Univ ersity of [facility] [place] Heart rate 2022-12-11 18:00:00 101 /min General acute hospital Oxygen saturation in 2022-12-11 18:00:00 93 /min [facility] Arterial blood by [facility] Pulse oximetry Branch BMI 2022-12-11 13:55:00 35.43 kg/m2 General acute hospital Body temperature 2022-12-11 13:55:00 37.22 Radha Univ [...] 97 /min University of Arterial blood by [facility] kwame Pulse oximetry Branch Body temperature 2022-11-17 [...] 97 /min University of Arterial blood by [facility] kwame Pulse oximetry Branch Body temperature 2022-08-02 [...] /min University of Arterial blood by [facility] kwame Pulse oximetry Branch Body height 2022-05-05 [...] 98 /min University of Arterial blood by [facility] kwame Pulse oximetry Branch Body temperature 2022-04-15 [...] 23.03 kg/m2 [facility] Oxygen saturation in 2021-03-15 00:14:00 98 /min University of Arterial blood by [facility] Pulse oximetry Branch Systolic blood 2021-02-19 18:00:00 131 mm[Hg] Univer sity of pressure [facility] Diastolic blood 2021-02-19 18:00:00 80 mm[Hg] Unive rsity of [facility] Heart rate 2021-02-19 18:00:00 83 /min [facility] Respiratory rate 2021-02-19 18:00:00 18 /min [facility] Oxygen saturation in 2021-02-19 18:00:00 100 /min [facility] Arterial blood by [facility] Pulse oximetry Branch Body temperature 2021-02-19 15:47:00 37 Radha [facility] Body height 2021-02-19 15:47:00 160 cm [facility] Body weight 2021-02-19 15:47:00 58.968 [facility] BMI 2021-02-19 15:47:00 23.03 kg/m2 [facility] Heart rate 2023-06-16 17:00:00 108 /min [facility] Systolic blood 2023-06-16 15:31:00 101 mm[Hg] [facility] Diastolic blood 2023-06-16 15:31:00 81 mm[Hg] [facility] Body temperature 2023-06-16 15:31:00 36.61 Radha [facility] Respiratory rate 2023-06-16 15:31:00 18 /min [facility] Oxygen saturation in 2023-06-16 15:31:00 94 /min [facility] Arterial blood by Medical nter Pulse oximetry Body weight 2023-06-16 05:26:00 86.047 kg [facility] BMI 2023-06-16 05:26:00 33.60 kg/m2 [facility] Body height 2023-06-13 04:00:00 160 cm [facility] Systolic blood 2023-06-04 13:02:00 93 mm[Hg] [facility] Diastolic blood 2023-06-04 13:02:00 57 mm[Hg] [facility] Heart rate 2023-06-04 13:02:00 101 /min [facility] Respiratory rate 2023-06-04 13:02:00 22 /min [facility] Oxygen saturation in 2023-06-04 13:02:00 95 /min room air [facility] Arterial blood by Medical Ce nter Pulse oximetry Body temperature 2023-06-04 11:46:00 35.28 Radha [facility] Systolic blood 2023-05-28 16:00:00 154 mm[Hg] [facility] Diastolic blood 2023-05-28 16:00:00 82 mm[Hg] [facility] Heart rate 2023-05-28 16:00:00 89 /min [facility] Body temperature 2023-05-28 16:00:00 36.67 Radha [facility] Respiratory rate 2023-05-28 16:00:00 16 /min [facility] Oxygen saturation in 2023-05-28 16:00:00 97 /min [facility] Arterial blood by Medical Ce nter Pulse oximetry Body height 2023-05-28 07:00:00 157.5 cm [facility] Body weight 2023-05-28 07:00:00 87.544 kg [facility] BMI 2023-05-28 07:00:00 35.30 kg/m2 [facility] Body height 2023-05-26 09:12:00 157.5 cm [facility] Body weight 2023-05-26 09:12:00 87.091 kg [facility] BMI 2023-05-26 09:12:00 35.12 kg/m2 [facility] Respiratory rate 2023-04-02 16:35:00 18 /min [facility] Oxygen saturation in 2023-04-02 16:35:00 98 /min [facility] Arterial blood by Medical Ce nter Pulse oximetry Systolic blood 2023-04-02 12:00:00 147 mm[Hg] [facility] Diastolic blood 2023-04-02 12:00:00 97 mm[Hg] [facility] Heart rate 2023-04-02 12:00:00 106 /min [facility] Body temperature 2023-04-02 12:00:00 36.28 Radha [facility] Body height 2023-03-30 02:14:00 157.5 cm [facility] Body weight 2023-03-30 02:14:00 92.08 kg [facility] BMI 2023-03-30 02:14:00 37.13 kg/m2 [facility] Respiratory rate 2022-08-03 14:40:00 18 /min [facility] Systolic blood 2022-08-03 12:13:00 112 mm[Hg] [facility] Diastolic blood 2022-08-03 12:13:00 77 mm[Hg] [facility] Heart rate 2022-08-03 12:13:00 115 /min [facility] Oxygen saturation in 2022-08-03 12:13:00 93 /min [facility] Arterial blood by Medical Ce nter Pulse oximetry Body temperature 2022-08-03 12:00:00 36.83 Radha [facility] Body height 2022-08-02 21:52:00 160.2 cm [facility] Body weight 2022-08-02 21:52:00 95 kg [facility] BMI 2022-08-02 21:52:00 37.02 kg/m2 [facility] BP Systolic 2022-07-24 13:31:00 136 [...] Date / Time Performing Clinician Source Performed TRANSESOPHAGEAL ECHO 2023-06-[address] [facility] 11:05:00 [facility] T SPOT TB 2023-06-[address] [facility] 04:51:00 [facility] FUNGITELL R B-D-GLUCAN WITH 2023-06-[address] [facility] REFLEX TO TITER 04:51:00 [facility] ASPERGILLUS GALACTOMANNAN 2023-06-[address] [facility] ANTIGEN 04:51:00 [facility] VANCOMYCIN LEVEL, TROUGH 2023-06-15 Denodre, Kaylene [facility] 04:51:00 [facility] T-SPOT(R).TB (QUEST) 2023-06-15 System, Provider Not [facility] 04:27:00 [facility] Medical Center ECHO W CONTRAST & DOPPLER 2023-06-[address] [facility] 09:22:00 [facility] HEMOGLOBIN A1C 2023-06-[address] [facility] 04:08:00 [facility] CBC (HEMOGRAM ONLY) 2023-06-[address] [facility] 04:08:00 [facility] BASIC METABOLIC PANEL 2023-06-[address] [facility] 04:08:00 [facility] CRYPTOCOCCAL ANTIGEN 2023-06-13 Rossy, Filibertochucky Garcia [facility] 17:21:00 [facility] HC LAB HIV-1 AG W/HIV-1&2 AB 2023-06-[address] [facility] 17:21:00 [facility] VENOUS DOPPLER ARM, LEFT 2023-06-[address] [facility] 17:20:00 [facility] LEGIONELLA ANTIGEN, URINE 2023-06-[address] [facility] 17:00:00 [facility] SPUTUM CULTURE + GRAM STAIN 2023-06-[address] [facility] 14:33:00 [facility] MR LUMBAR SPINE WITH & 2023-06-[address] [facility] WITHOUT IV CONTRAST 13:03:47 [facility] er ECG 12-LEAD 2023-06-[address] [facility] 11:47:02 Medical Center ECG 12-LEAD 2023-06-13 Unknown, Hl7 Doctor [facility] 11:47:02 [facility] MRSA SCREEN 2023-06-[address] [facility] 09:19:00 [facility] CBC W/PLT COUNT & AUTO 2023-06-[address] [facility] DIFFERENTIAL 06:03:00 [facility] COMPREHENSIVE METABOLIC PANEL 2023-06-[address] [facility] 06:03:00 [facility] PROTHROMBIN TIME/INR 2023-06-[address] [facility] 06:03:00 [facility] CREATINE KINASE (CK) 2023-06-[address] [facility] 06:03:00 [facility] CBC W/PLT COUNT & AUTO 2023-06-[address] [facility] DIFFERENTIAL 06:03:00 [facility] BLOOD CULTURE 2023-06-[address] [facility] 06:02:00 [facility] CBC W/PLT COUNT & AUTO 2023-06-[address] [facility] DIFFERENTIAL 04:41:00 [facility] BASIC METABOLIC PANEL 2023-06-[address] [facility] 04:41:00 [facility] MAGNESIUM 2023-06-[address] [facility] 04:41:00 [facility] PHOSPHORUS 2023-06-[address] [facility] 04:41:00 [facility] CBC W/PLT COUNT & AUTO 2023-06-[address] [facility] DIFFERENTIAL 04:41:00 [facility] XR SPINE LUMBAR 1 VIEW 2023-06-[address] [facility] 10:31:00 [facility] XR SPINE LUMBAR 1 VIEW 2023-06-[address] [facility] 09:46:00 [facility] LAMINECTOMY, SPINE, LUMBAR 2023-06-01 [facility] 09:10:00 [facility] PROCEDURE W/ C-ARM 2023-06-[address] [facility] 09:10:00 [facility] LAMINECTOMY, SPINE, LUMBAR 2023-06-01 Adam [facility] 07:30:00 [facility] PROCEDURE W/ C-ARM 2023-06-[address] [facility] 07:30:00 [facility] SCREEN, URINE 2023-06-[address] [facility] 04:33:00 [facility] BASIC METABOLIC PANEL 2023-05-[address] [facility] 22:55:00 [facility] CBC W/PLT COUNT & AUTO 2023-05-31 Dallas Gomez [facility] DIFFERENTIAL 22:55:00 [facility] PT/APTT 2023-05-[address] [facility] 22:55:00 [facility] CBC W/PLT COUNT & AUTO 2023-05-31 Dallas Gomez [facility] DIFFERENTIAL 22:55:[address] [facility] CT NECK SOFT TISSUE WITHOUT 2023-05-31 Chilakapati, Burt [facility] IV CONTRAST 09:39:30 [facility] TYPE AND SCREEN, AUTOMATED 2023-05-31 Chilakapati, Burt [facility] 09:13:00 [facility] BASIC METABOLIC PANEL 2023-05-29 Chilakapati, Burt [facility] 06:43:00 [facility] CBC W/PLT COUNT & AUTO 2023-05-29 Chilakapati, Burt [facility] DIFFERENTIAL 06:43:00 [facility] CBC W/PLT COUNT & AUTO 2023-05-29 Chilakapati, Burt [facility] DIFFERENTIAL 06:43:00 [facility] XR SPINE CERVICAL 2 OR 3 2023-05-28 Chilakapati, Burt [facility] VIEWS 18:57:00 [facility] FL FLUORO NON-SPECIFIC UP TO 2023-05-[address] [facility] 1 HOUR 10:48:00 [facility] FL FLUORO NON-SPECIFIC UP TO 2023-05-[address] [facility] 1 HOUR 10:07:00 [facility] DISCECTOMY, SPINE, CERVICAL, 2023-05-[address] [facility] ANTERIOR APPROACH, WITH 08:15:00 [facility] FUSION INSERTION, HARDWARE, SPINAL 2023-05-28 Jose, Adam C [facility] 08:15:00 [facility] PROCEDURE, ALLOGRAFT, FOR 2023-05-[address] [facility] SPINE SURGERY 08:15:00 [facility] AUTOGRAFT FOR SPINE SURGERY 2023-05-[address] [facility] 08:15:00 [facility] PROCEDURE W/ C-ARM 2023-05-[address] [facility] 08:15:00 [facility] NEUROPHYSIOLOGIC MONITORING, 2023-05-[address] [facility] INTRAOPERATIVE 08:15:00 [facility] PROCEDURE, USING OPERATING 2023-05-28 Adam Garcia [facility] MICROSCOPE 08:15:00 [facility] HCG, QUANTITATIVE, 2023-05-[address] [facility] 07:42:00 [facility] TYPE AND SCREEN, AUTOMATED 2023-05-[address] [facility] 07:42:00 [facility] XR CHEST 1 VIEW PORTABLE / 2023-04-[address] [facility] BEDSIDE 15:32:16 [facility] B-TYPE NATRIURETIC FACTOR 2023-04-01 Thomas Lozoya [facility] (BNP[facility] 13:32:00 [facility] ECHO W CONTRAST & DOPPLER 2023-03-31 Mariah Aldridge [facility] 20:18:37 [facility] MR CERVICAL SPINE WITHOUT IV 2023-03-[address] [facility] CONTRAST 09:25:00 [facility] CBC (HEMOGRAM ONLY) 2023-03-[address] [facility] 03:45:00 [facility] COMPREHENSIVE METABOLIC PANEL 2023-03-[address] [facility] 03:45:00 [facility] ARTERIAL DOPPLER LEGS 2023-03-[address] [facility] BILATERAL 15:45:00 [facility] ARTERIAL (ALEISHA'S W/ DOPPLER) 2023-03-[address] [facility] ONLY 15:44:00 [facility] ECG 12-LEAD 2023-03-[address] [facility] 13:06:22 [facility] ECG 12-LEAD 2023-03-30 Unknown, Hl7 Doctor [facility] 13:06:22 [facility] MR THORACIC SPINE WITHOUT IV 2023-03-[address] [facility] CONTRAST 12:29:58 [facility] MR LUMBAR SPINE WITHOUT IV 2023-03-[address] [facility] CONTRAST 11:58:00 [facility] EEG AWAKE AND DROWSY 2023-03-[address] [facility] 09:57:53 [facility] VALPROIC ACID LEVEL, TOTAL 2023-03-30 BerryLiudmila [facility] 09:06:00 [facility] URINALYSIS W/ REFLEX URINE 2023-03-[address] [facility] CULTURE 03:54:00 [facility] CBC (HEMOGRAM ONLY) 2023-03-[address] [facility] 03:52:00 [facility] COMPREHENSIVE METABOLIC PANEL 2023-03-[address] [facility] 03:52:00 [facility] HEMOGLOBIN A1C 2023-03-30 Luis Carlos Mariah [facility] 03:52:00 [facility] PT/APTT 2023-03-30 Devora, Mrinalini [facility] 03:52:00 [facility] EKG-SCANNED 2023-03-29 Provider, Eliceo [facility] 00:00:00 Scanning [facility] CT HEAD WO CONTRAST 2022-12-11 Alfonso Alvarado o f 18:36:49 [facility] URINE DRUG (IMMUNOASSAY) - 2022-12-11 Alfonso Alvarado Unive rsity of COMPREHENSIVE DRUG SCREEN 17:13:00 [facility] URINALYSIS 2022-12-11 Alfonso Alvarado [place] of 17:13:00 [facility] CT CHEST PULMONARY ANGIOGRAM 2022-12-11 Alfonso Alvarado Uni versity of 16:26:39 [facility] MAGNESIUM 2022-12-11 Alfonso Alvarado [place] of 14:57:00 [facility] COMP. METABOLIC PANEL (38978) 2022-12-11 Alfonso Alvarado iversity of 14:57:00 [facility] D-DIMER 2022-12-11 Alfonso Alvarado [place] of 14:15:00 [facility] XR CHEST 1 VW 2022-12-11 Alfonso Alvarado [place] of 14:10:26 [facility] TROPONIN I 2022-12-11 Alfonso Alvarado [place] of 14:02:00 [facility] CBC WITH DIFF 2022-12-11 Alfonso Alvarado [place] of 14:02:00 [facility] N-TERMINAL PRO-BNP 2022-12-11 Alfonso Alvarado [place] of 14:02:00 [facility] HB ECG ROUTINE & RHYTHM STRIP 2022-12-11 Alfonso Alvarado Un iversity of 14:01:08 [facility] CONSENT/REFUSAL FOR DIAGNOSIS 2022-12-11 Doctor Unassigned, University of AND TREATMENT 13:52:01 Shubert [facility] ECG 12-LEAD 2022-08-03 Unknown, Hl7 Doctor ROB [facility] 05:03:32 [facility] ECG 12-LEAD 2022-08-03 Unknown, Hl7 Doctor [facility] 05:03:32 [facility] LIPID PANEL 2022-08-[address] [facility] 21:14:00 [facility] TSH/FREE T4 IF INDICATED 2022-08-02 Donaldo Hightower [facility] 21:14:00 [facility] VITAMIN B12 2022-08-02 Donaldo Hightower [facility] 21:14:00 [facility] HEMOGLOBIN A1C 2022-08-02 Donaldo Hightower [facility] 21:14:00 [facility] COMPREHENSIVE METABOLIC PANEL 2022-08-02 Donaldo Hightower CH 21:14:00 [facility] CBC W/PLT COUNT & AUTO 2022-08-02 Donaldo [facility]ightower [facility] DIFFERENTIAL 21:14:00 [facility] RPR 2022-08-[address] [facility] 21:14:00 [facility] HC LAB HIV-1 AG W/HIV-1&2 AB 2022-08-02 Donaldo Hightower [facility] 21:14:00 [facility] C-REACTIVE PROTEIN 2022-08-[address] [facility] 21:14:00 [facility] CBC W/PLT COUNT & AUTO 2022-08-02 Donaldo Hightower [facility] DIFFERENTIAL 21:14:00 [facility] EKG-SCANNED 2022-08-[address] [facility] 00:00:00 [facility] CT HEAD WO CONTRAST 2022-08-01 Lorenza Lowry [place] [facility] 23:52:15 [facility] GALV ONLY - INFLUENZA A B RSV 2022-08-01 LindseyLetitia hudson Un iversity of PCR 18:28:00 [facility] TRANSTHORACIC ECHO (TTE) 2022-08-01 [facility] ity of COMPLETE W/ CONTRAST 14:42:00 [facility] Branch MAGNESIUM 2022-08-01 Lorenza Lowry [place] of 10:42:00 [facility] BASIC METABOLIC PANEL (NA, K, 2022-08-01 Lorenza Lowry Un iversity of CL, CO2, GLUCOSE, BUN, 10:42:00 [facility] ical CREATININE, [place]) Branch CBC WITH DIFF 2022-08-01 Lorenza Lowry [place] [facility] 10:42:00 [facility] N-TERMINAL PRO-BNP 2022-08-01 Tc [facility] of 10:42:00 [facility] POCT GLUCOSE (AUTOMATED) 2022-08-01 Lorenza Lowry [facility] ity of 06:56:00 [facility] CRITICAL CARE 2022-07-31 Sav Rondon [place] 22:31:36 [facility] URINALYSIS 2022-07-31 Sav Rondon [place] of 20:52:00 [facility] URINE DRUG (IMMUNOASSAY) - 2022-07-31 [facility] COMPREHENSIVE DRUG SCREEN W/O 20:52:00 [place] [facility] REFLEX Branch XR CHEST 1 VW 2022-07-31 aSv Rondon of 18:45:17 [facility] LIPASE 2022-07-31 Sav Rondon [place] [facility] 17:58:00 [facility] TROPONIN I 2022-07-31 Sav Rondon [place] [facility] 17:58:00 [facility] COMP. METABOLIC PANEL ([id number]) 2022-07-31 Sav Rondon iversity of 17:58:00 [facility] CBC WITH DIFF 2022-07-31 Sav Rondon of 17:58:00 [facility] PROTHROMBIN TIME / INR 2022-07-31 Sav Rondonit y of 17:58:00 [facility] ACTIVATED PARTIAL THRMPLAS 2022-07-31 Sav Rondon [facility] rsity of DAVID 17:58:00 [facility] N-TERMINAL PRO-BNP 2022-07-31 Sav Rondon [place] of 17:58:00 [facility] HB ECG ROUTINE & RHYTHM STRIP 2022-07-31 Sav Rondon iversity of 17:46:28 [facility] NOTICE OF PRIVACY PRACTICES 2022-07-31 Doctor Unassigned, U niversity of 17:35:38 Shubert [facility] CONSENT/REFUSAL FOR DIAGNOSIS 2022-07-31 Doctor Unassigned, University of AND TREATMENT 17:35:13 Shubert [facility] PHOSPHORUS 2022-05-08 Shefali [facility] of 05:51:00 [facility] MAGNESIUM 2022-05-08 Shefali [facility] of 05:51:00 [facility] BASIC METABOLIC PANEL (NA, K, 2022-05-08 Shefali, [place] U niversity of CL, CO2, GLUCOSE, BUN, 05:51:00 [place] [facility] CREATININE, [place]) Branch CBC WITH DIFF 2022-05-08 Shefali [facility] of 05:51:00 [facility] BASIC METABOLIC PANEL (NA, K, 2022-05-07 [facility] of CL, CO2, GLUCOSE, BUN, 07:09:00 Shailesh [facility] ica CREATININE, [place]) Branch CBC WITH DIFF 2022-05-07 [facility] of 07:09:00 [facility] POCT GLUCOSE (AUTOMATED) 2022-05-07 Brandyn Ibrahim of 01:16:00 [facility] HB ABO GROUPING 2022-05-06 Shaun [facility] of 05:07:00 [facility] BASIC METABOLIC PANEL (NA, K, 2022-05-06 Shefali, Azeem U niversity of CL, CO2, GLUCOSE, BUN, 05:04:00 [place] [facility] CREATININE, [place]) Branch CBC WITH DIFF 2022-05-06 Shefali [facility] of 05:04:00 [facility] KEPPRA (LEVETIRACETAM) 2022-05-06 [facility] ty of 05:04:00 [facility] MR LUMBAR SPINE WO CONTRAST 2022-05-06 Kneedler, Ender U niversity [facility] 02:54:37 [facility] ELECTROENCEPHALOGRAM 2022-05-06 Abdulaziz John Naa ty of 00:00:00 Shailesh [facility] BASIC METABOLIC PANEL (NA, K, 2022-05-05 [facility] of CL, CO2, GLUCOSE, BUN, 07:57:00 [facility] ica CREATININE, [place]) Branch CBC WITH DIFF 2022-05-05 [facility] of 07:57:00 [facility] PROTHROMBIN TIME / INR 2022-05-05 [facility] ersity of 07:57:00 [facility] ACTIVATED PARTIAL THRMPLAS 2022-05-05 [facility] of DAVID 07:57:00 [facility] FIBRINOGEN 2022-05-05 [facility] 07:57:00 [facility] EMERGENCY SERVICES AGREEMENTS 2022-05-04 Doctor Unassigned, University AND AUTHORIZATIONS 05:01:00 Shubert [facility] VITAMIN D, 25-OH 2022-04-15 Tre Sen [place] of 16:53:00 [facility] MR THORACIC SPINE WO CONTRAST 2022-04-15 Soumya Chua Un iversity of 11:56:19 [facility] MR CERVICAL SPINE WO CONTRAST 2022-04-15 Soumya Chua Un iversity of 11:20:00 [facility] BASIC METABOLIC PANEL (NA, K, 2022-04-15 Charmaine Morataya Un iversity of CL, CO2, GLUCOSE, BUN, 10:36:00 [facility] ical CREATININE, [place]) Branch TEST, URINE 2022-04-15 [facility] of 04:39:00 [facility] URINE DRUG (IMMUNOASSAY) - 2022-04-15 [facility] rsity of COMPREHENSIVE DRUG SCREEN 04:39:00 [facility] URINALYSIS 2022-04-15 [facility] of 04:39:00 [facility] TRANSTHORACIC ECHO (TTE) 2022-04-14 [facility] ity of COMPLETE W/ CONTRAST 16:37:03 [facility] KEPPRA (LEVETIRACETAM) 2022-04-14 [facility] y of 15:30:00 [facility] MAGNESIUM 2022-04-14 [facility] of 10:03:00 [facility] BASIC METABOLIC PANEL (NA, K, 2022-04-14 [facility] iversity of CL, CO2, GLUCOSE, BUN, 10:03:00 [place] [facility] CREATININE, [place]) Branch MR LUMBAR SPINE WO CONTRAST 2022-04-14 [facility] ersity of 02:48:12 [facility] MR STROKE BRAIN WO CONTRAST 2022-04-14 [facility] ersity of 02:29:00 [facility] CT STROKE ANGIOGRAM HEAD 2022-04-13 Sapna Vargas [facility] ersity of 18:40:00 [facility] CT STROKE ANGIOGRAM NECK 2022-04-13 Sapna Vargas [facility] ersity of 18:40:00 [facility] CT STROKE HEAD WO CONTRAST 2022-04-13 Sapna Vargas iversity of 18:36:00 [facility] TROPONIN I 2022-04-13 Sapna Vargas [place] [facility] 18:17:00 [facility] THYROID STIMULATING HORMONE 2022-04-13 [facility] ersity of 18:17:00 [facility] BASIC METABOLIC PANEL (NA, K, 2022-04-13 Sapna Vargas [place] of CL, CO2, GLUCOSE, BUN, 18:17:00 [place] [facility] CREATININE, [place]) Branch LIPID PANEL ([id number])(TOTAL 2022-04-13 [facility] sity of CHOLESTEROL, TRIGLYCERIDES, 18:17:00 [facility] HDL) Branch CBC WITHOUT DIFF 2022-04-13 Sapna Vargas [place] f 18:17:00 [facility] GLYCOSYLATED HEMOGLOBIN (A1C) 2022-04-13 John Chuaena Un iversity of 18:17:00 [facility] PROTHROMBIN TIME / INR 2022-04-[address] [facility] sity of 18:17:00 [facility] ACTIVATED PARTIAL THRMPLAS 2022-04-13 Sapna Vargas iversity of DAVID 18:17:00 [facility] COVID-19 (ID NOW RAPID 2022-04-[address] [facility] sity of TESTING) 18:17:00 [facility] LAB ONLY COVID INTERPRETATION 2022-04-13 Sapna Vargas [facility] 18:17:00 [facility] HB ECG ROUTINE & RHYTHM STRIP 2022-04-13 Sapna Vargas [facility] 18:15:49 [facility] CONSENT/REFUSAL FOR DIAGNOSIS 2022-04-13 Doctor Unassigned, [facility] AND TREATMENT 18:05:14 [facility] HOSPITAL ADMISSION 2022-04-13 Doctor Unassigned, [facility] 05:01:00 Sh[facility] SARS-COV-2 COVID-19 VACCINE 2022-02-19 Doctor Unassigned, [facility]iversity of 12 YRS+,0.3ML,IM (PFIZER - 15:21:12 [facility] URINE DRUG (IMMUNOASSAY) - 2021-11-23 Nichelle Virk [facility] of COMPREHENSIVE DRUG SCREEN W/O 21:21[place]00 [place] [facility] HEAD WO CONTRAST 2021-11-23 Nichelle Virk [facility] ty of 20:58:00 [facility] POCT TEST 2021-11-[address] [facility] ty of 20:46:00 [facility] URINALYSIS 2021-11-[address] [facility] o f 20:43:00 [facility] LIPASE 2021-11-23 [facility] o f 20:27:00 [facility] TROPONIN I 2021-11-[address] [facility] o f 20:27:00 [facility] COMP. METABOLIC PANEL ([id number]) 2021-11-23 [facility] of 20:27:00 [facility] CBC WITH DIFF 2021-11-[address] [facility] o f 20:27:00 [facility] POCT GLUCOSE (AUTOMATED) 2021-11-23 Doctor Joe, [facility] ersity of 20:15:00 [facility] SARS-COV-2 COVID-19 2021-05-24 Doctor Unassigned, Universit y of VACCINE,0.3ML,IM (PFIZER) 14:23:12 [facility] SARS-COV-2 COVID-19 2021-05-03 Doctor Unassigned, Universit y of VACCINE,0.3ML,IM (PFIZER) 14:59:29 [facility] EMERGENCY SERVICES AGREEMENTS 2021-04-16 Doctor Unassigned, [facility] of AND AUTHORIZATIONS 05:01:00 [facility] URINALYSIS 2021-03-17 Fabrice Chakraborty [place] of 03:09:00 [facility] XR CHEST 1 VW 2021-03-17 [facility] of 01:45:07 [facility] TROPONIN I 2021-03-17 [facility] of 01:35:00 [facility] COMP. METABOLIC PANEL ([id number]) 2021-03-17 Fabrice Chakraborty Un iversity of 01:35:00 [facility] CBC WITH DIFF 2021-03-17 [facility] of 01:35:00 [facility] N-TERMINAL PRO-BNP 2021-03-17 [facility] of 01:35:00 [facility] COVID-19 (ID NOW RAPID 2021-03-17 Singer [facility] y of TESTING) 00:58:00 [facility] CONSENT/REFUSAL FOR DIAGNOSIS 2021-03-17 Doctor Unassigned, [facility] AND TREATMENT 00:32:59 [facility] COVID-19 (ID NOW RAPID 2021-02-19 Anali Monroy [facility] y of TESTING) 17:04:[address] [facility] [address] ABDOMEN PELVIS W CONTRAST 2021-02-19 Anali Monroy Uni versity of 16:41:18 [facility] LIPASE 2021-02-19 Anali Monroy [place] of 15:58:00 [facility] COMP. METABOLIC PANEL ([id number]) 2021-02-19 Anali Monroy Un [facility]versity of 15:58:00 [facility] CBC WITH DIFF 2021-02-19 Anali Monroy [place] of 15:58:00 [facility] URINALYSIS 2021-02-19 Anali Monroy [place] of 15:58:00 [facility] NOTICE OF PRIVACY PRACTICES 2021-02-19 Doctor Unassjulee, [facility] of 15:30:46 [facility] CONSENT/REFUSAL FOR DIAGNOSIS 2021-02-19 Doctor Unassigned, [facility] of AND TREATMENT 15:30:30 [facility] Plan of Care Planned Activity Planned Date Details Comments Source Future Scheduled 2025-08-02 Lipid panel (procedure) [facility] 00:00:00 [code = 79000351] Medical Ce [facility]ter Future Scheduled 2025-08-02 Lipid panel (procedure) [facility] 00:00:00 [code = 80253183] Medical Ce nter Future Scheduled 2025-08-02 Lipid panel (procedure) [facility] 00:00:00 [code = 09278677] Medical Ce nter Future Scheduled 2025-08-02 Lipid panel (procedure) [facility] 00:00:00 [code = 57457637] Medical Ce nter Future Scheduled 2025-08-02 Lipid panel (procedure) [facility] 00:00:00 [code = 66050153] Medical Ce nter Future Scheduled 2025-08-02 Lipid panel (procedure) [facility] 00:00:00 [code = 96257164] Medical Ce nter Future Scheduled 2025-08-02 Lipid panel (procedure) [facility] 00:00:00 [code = 77103714] Medical Ce nter Future Scheduled 2025-08-02 Lipid panel (procedure) [facility] 00:00:00 [code = 82161273] Medical Ce nter Future Scheduled 2025-08-02 Lipid panel (procedure) [facility] 00:00:00 [code = 49934763] Medical Ce nter Future Scheduled 2025-08-02 Lipid panel (procedure) [facility] 00:00:00 [code = 38764173] Medical Ce nter Future Scheduled 2025-08-02 Lipid panel (procedure) [facility] 00:00:00 [code = 67136369] Medical Ce nter Future Scheduled 2025-08-02 Lipid panel (procedure) [facility] 00:00:00 [code = 45548258] Medical Ce nter Future Scheduled 2025-08-02 Lipid panel (procedure) [facility] 00:00:00 [code = 29800813] Medical Ce nter Future Scheduled 2025-08-02 Lipid panel (procedure) [facility] 00:00:00 [code = 29611186] Medical Ce nter Future Scheduled 2025-08-02 Lipid panel (procedure) [facility] 00:00:00 [code = 79581057] Medical Ce nter Future Scheduled 2025-08-02 Lipid panel (procedure) [facility] 00:00:00 [code = 34914711] Medical Ce nter Future Scheduled 2025-08-02 Lipid panel (procedure) [facility] 00:00:00 [code = 68242358] Medical Ce nter Future Scheduled 2025-08-02 Lipid panel (procedure) [facility] 00:00:00 [code = 72987425] Medical Ce nter Future Scheduled 2025-08-02 Lipid panel (procedure) [facility] 00:00:00 [code = 29549494] Medical Ce nter Future Scheduled 2025-08-02 Lipid panel (procedure) [facility] 00:00:00 [code = 79341259] Medical Ce nter Future Scheduled 2025-08-02 Lipid panel (procedure) [facility] 00:00:00 [code = 94485303] Medical Ce nter Future Scheduled 2025-08-02 Lipid panel (procedure) [facility] 00:00:00 [code = 83535310] Medical Ce nter Future Scheduled 2025-08-02 Lipid panel (procedure) [facility] 00:00:00 [code = 82244480] Medical Ce nter Future Scheduled 2025-08-02 Lipid panel (procedure) [facility] 00:00:00 [code = 32377014] Medical Ce nter Future Scheduled 2025-08-02 Lipid panel (procedure) [facility] 00:00:00 [code = 92520068] Medical Ce nter Future Scheduled 2025-08-02 Lipid panel (procedure) [facility] 00:00:00 [code = 00088969] Medical Ce nter Future Scheduled 2025-08-02 Lipid panel (procedure) [facility] 00:00:00 [code = 41149514] Medical Ce nter Future Scheduled 2025-08-02 Lipid panel (procedure) [facility] 00:00:00 [code = 80465963] Medical Ce nter Future Scheduled 2025-08-02 Lipid panel (procedure) [facility] 00:00:00 [code = 66478655] Medical Ce nter Future Scheduled 2024-05-28 Tobacco [...] lung [facility] (procedure) [code = 622167601] Future Scheduled 2022-01-14 SHINGLES VACCINES ([address] [facility] 00:00:00 2) [code = [facility]INGLES [facility] VACCINES (1 of 2)] Future Scheduled 2022-01-14 Screening for malignant [facility] 00:00:00 neoplasm of lung [facility] (procedure) [code = 276453510] Future Scheduled 2022-01-14 SHINGLES VACCINES ([address] [facility] 00:00:00 2) [code = SHINGLES [facility] VACCINES (1 of 2)] Future Scheduled 2022-01-14 Screening for malignant [facility] 00:00:00 neoplasm of lung [facility] (procedure) [code = 926258222] Future Scheduled 2022-01-14 SHINGLES VACCINES ([address] [facility] 00:00:00 2) [code = SHINGLES [facility] VACCINES (1 of 2)] Future Scheduled 2022-01-14 Screening for malignant [facility] 00:00:00 neoplasm of lung [facility] (procedure) [code = 156758076] Future Scheduled 2022-01-14 SHINGLES VACCINES ([address] [facility] 00:00:00 2) [code = SHINGLES [facility] VACCINES (1 of 2)] Future Scheduled 2022-01-14 Screening for malignant [facility] 00:00:00 neoplasm of lung [facility] (procedure) [code = 804074783] Future Scheduled 2022-01-14 SHINGLES VACCINES ([address] [facility] 00:00:00 2) [code = SHINGLES [facility] VACCINES (1 of 2)] Future Scheduled 2022-01-14 Screening for malignant [facility] 00:00:00 neoplasm of lung [facility] (procedure) [code = 476060745] Future Scheduled 2022-01-14 SHINGLES VACCINES ([address] [facility] 00:00:00 2) [code = SHINGLES [facility] VACCINES (1 of 2)] Future Scheduled 2022-01-14 Screening for malignant [facility] 00:00:00 neoplasm of lung [facility] (procedure) [code = 320340399] Future Scheduled 2022-01-14 SHINGLES VACCINES (1 of [...] lung [facility] (procedure) [code = 834513875] Future Scheduled 2022-01-14 SHINGLES VACCINES ([address] [facility] 00:00:00 2) [code = SHINGLES [facility] VACCINES (1 of 2)] Future Scheduled 2022-01-14 Screening for malignant [facility] 00:00:00 neoplasm of lung [facility] (procedure) [code = 899464025] Future Scheduled 2022-01-14 SHINGLES VACCINES ([address] [facility] 00:00:00 2) [code = SHINGLES [facility] Center VACCINES (1 of 2)] Future Scheduled 2022-01-14 Screening for malignant [facility] 00:00:00 neoplasm of lung [facility] (procedure) [code = 641173377] Future Scheduled 2022-01-14 SHINGLES VACCINES ([address] [facility] 00:00:00 2) [code = [facility] VACCINES (1 of 2)] Future Scheduled 2022-01-14 Screening for malignant [facility] 00:00:00 neoplasm of lung [facility] (procedure) [code = 063309426] Future Scheduled 2022-01-14 SHINGLES VACCINES ([address] [facility] 00:00:00 2) [code = [facility] VACCINES (1 of 2)] Future Scheduled 2022-01-14 Screening for malignant [facility] 00:00:00 neoplasm of lung [facility] (procedure) [code = 805168500] Future Scheduled 2022-01-14 SHINGLES VACCINES ([address] [facility] 00:00:00 2) [code = [facility] VACCINES (1 of 2)] Future Scheduled 2013-12-15 [...] YRS (2 - PCV)] Future Scheduled 2013-12-15 Pneumococcal Vaccine: [facility]:00 0-64 Years (2 - PCV) [facility] Center [code = Pneumococcal Vaccine: 0-64 Years (2 - PCV)] Future Scheduled 1993-01-14 Screening for malignant [facility] 00:00:00 neoplasm of cervix Medical C enter (procedure) [code = 874244333] Future Scheduled 1993-01-14 Screening for malignant [facility] 00:00:00 neoplasm of cervix [facility] (procedure) [code = 931735520] Future Scheduled 1993-01-14 Screening for malignant [facility] 00:00:00 neoplasm of cervix Medical [facility] (procedure) [code = 956373517] Future Scheduled 1993-01-14 Screening for malignant [facility] 00:00:00 neoplasm of cervix [facility] (procedure) [code = 857639047] Future Scheduled 1993-01-14 Screening for malignant [facility] 00:00:00 neoplasm of cervix Medical [facility] (procedure) [code = 875701006] Future Scheduled 1993-01-14 Screening for malignant [facility] 00:00:00 neoplasm of cervix [facility] (procedure) [code = 442417810] Future Scheduled 1993-01-14 Screening for malignant [facility] 00:00:00 neoplasm of cervix Medical [facility] (procedure) [code = 227888831] Future Scheduled 1993-01-14 Screening for malignant [facility] 00:00:00 neoplasm of cervix [facility] (procedure) [code = 768040117] Future Scheduled 1993-01-14 Screening for malignant [facility] 00:00:00 neoplasm of cervix Medical [facility] (procedure) [code = 897927010] Future Scheduled 1993-01-14 Screening for malignant [facility] 00:00:00 neoplasm of cervix Medical [facility] (procedure) [code = 817688647] Future Scheduled 1993-01-14 Screening for malignant [facility] 00:00:00 neoplasm of cervix Medical [facility] (procedure) [code = 463142105] Future Scheduled 1993-01-14 Screening for malignant [facility] 00:00:00 neoplasm of cervix [facility] (procedure) [code = 292999448] Future Scheduled 1993-01-14 Screening for malignant [facility] 00:00:00 neoplasm of cervix Medical [facility] (procedure) [code = 478976178] Future Scheduled 1993-01-14 Screening for malignant [facility] 00:00:00 neoplasm of cervix Medical [facility] (procedure) [code = 922978239] Future Scheduled 1993-01-14 Screening for malignant [facility] 00:00:00 neoplasm of cervix Medical [facility] (procedure) [code = 387827576] Future Scheduled 1993-01-14 Screening for malignant [facility] 00:00:00 neoplasm of cervix Medical [facility] (procedure) [code = 930996001] Future Scheduled 1993-01-14 Screening for malignant [facility] 00:00:00 neoplasm of cervix [facility] (procedure) [code = 196581533] Future Scheduled 1993-01-14 Screening for malignant [facility] 00:00:00 neoplasm of cervix Medical [facility] (procedure) [code = 696291193] Future Scheduled 1993-01-14 Screening for malignant [facility] 00:00:00 neoplasm of cervix Medical [facility] (procedure) [code = 965194387] Future Scheduled 1993-01-14 Screening for malignant [facility] 00:00:00 neoplasm of cervix Medical [facility] (procedure) [code = 158981536] Future Scheduled 1993-01-14 Screening for malignant [facility] 00:00:00 neoplasm of cervix Medical [facility] enter (procedure) [code = 649948256] Future Scheduled 1993-01-14 Screening for malignant [facility] 00:00:00 neoplasm of cervix Medical [facility] (procedure) [code = 253295297] Future Scheduled 1993-01-14 Screening for malignant [facility] 00:00:00 neoplasm of cervix Medical [facility] enter (procedure) [code = 613726623] Future Scheduled 1993-01-14 Screening for malignant [facility] 00:00:00 neoplasm of cervix Medical C enter (procedure) [code = 411267833] Future Scheduled 1993-01-14 Screening for malignant [facility] 00:00:00 neoplasm of cervix Medical [facility] enter (procedure) [code = 308466114] Future Scheduled 1993-01-14 Screening for malignant [facility] 00:00:00 neoplasm of cervix Medical [facility] enter (procedure) [code = 745450363] Future Scheduled 1993-01-14 Screening for malignant [facility] 00:00:00 neoplasm of cervix Medical C enter (procedure) [code = 257035352] Future Scheduled 1993-01-14 Screening for malignant [facility] 00:00:00 neoplasm of cervix Medical [facility] enter (procedure) [code = 355826523] Future Scheduled 1993-01-14 Screening for malignant [facility] 00:00:00 neoplasm of cervix [facility] (procedure) [code = 302075851] Future Scheduled 1991-01-14 DTAP/TDAP/TD VACCINES (1 [facility] [...] screening [facility] (procedure) [code = 938357142] Future Scheduled 1987-01-[address] [facility] virus screening [facility] (procedure) [code = 785913480] Future Scheduled [address] [...] breast Medical C enter (procedure) [code = 189599474] Future Scheduled 1972 CT Colonography (combo) [facility] 00:00:00 [code = CT Colonography [facility] (combo)] Future Scheduled 1972 Screening for malignant [facility] 00:00:00 neoplasm of colon Medical Ce [facility]ter (procedure) [code = 581260823] Future Scheduled 1972 Screening for malignant [facility] 00:00:00 neoplasm of colon [facility] Ce [facility]ter (procedure) [code = 469357650] Future Scheduled 1972 Screening for malignant [facility] 00:00:00 neoplasm of colon [facility] (procedure) [code = 490854847] Future Scheduled 1972 Screening for malignant [facility] 00:00:00 neoplasm of colon [facility] Ce [facility]ter (procedure) [code = 827481371] Future Scheduled 1972 Sigmoidoscopy [code = [facility] S[facility]] Medical Cent[facility] r Future Scheduled 1972 Screening for malignant [facility] 00:00:00 neoplasm of breast Medical C enter (procedure) [code = 234270979] Future Scheduled 1972 CT Colonography (combo) [facility] 00:00:00 [code = CT Colonography [facility] (combo)] Future Scheduled 1972 Screening for malignant [facility] 00:00:00 neoplasm of colon Medical Ce [facility]ter (procedure) [code = 099086406] Future Scheduled 1972 Screening for malignant [facility] 00:00:00 neoplasm of colon Medical Ce [facility]ter (procedure) [code = 415307771] Future Scheduled 1972 Screening for malignant [facility] 00:00:00 neoplasm of colon Medical Ce [facility]ter (procedure) [code = 435016965] Future Scheduled 1972 Screening for malignant [facility] 00:00:00 neoplasm of colon Medical Ce [facility]ter (procedure) [code = 333955013] Future Scheduled 1972 Sigmoidoscopy [code = [facility] S[facility]oscopy] Medical Cent[facility] r Future Scheduled 1972 Screening for malignant [facility] 00:00:00 neoplasm of breast Medical C enter (procedure) [code = 676388738] Future Scheduled 1972 CT Colonography (combo) [facility] 00:00:00 [code = CT Colonography [facility] (combo)] Future Scheduled 1972 Screening for malignant [facility] 00:00:00 neoplasm of colon Medical Ce [facility]ter (procedure) [code = 097415152] Future Scheduled 1972 Screening for malignant [facility] 00:00:00 neoplasm of colon Medical Ce [facility]ter (procedure) [code = 158625638] Future Scheduled 1972 Screening for malignant [facility] 00:00:00 neoplasm of colon Medical Ce [facility]ter (procedure) [code = 894777606] Future Scheduled 1972 Screening for malignant [facility] 00:00:00 neoplasm of colon [facility] Ce [facility]ter (procedure) [code = 713895423] Future Scheduled 1972 Sigmoidoscopy [code = [facility] S[facility]oscopy] Medical Cent[facility] r Future Scheduled 1972 Screening for malignant [facility] 00:00:00 neoplasm of breast Medical C enter (procedure) [code = 204864424] Future Scheduled 1972 CT Colonography (combo) [facility] 00:00:00 [code = CT [facility] ([facility])] Future Scheduled 1972 Screening for malignant [facility] 00:00:00 neoplasm of colon Medical Ce [facility]ter (procedure) [code = 060808872] Future Scheduled 1972 Screening for malignant [facility] 00:00:00 neoplasm of colon Medical Ce [facility]ter (procedure) [code = 504550124] Future Scheduled 1972 Screening for malignant [facility] 00:00:00 neoplasm of colon Medical Ce [facility]ter (procedure) [code = 772971492] Future Scheduled 1972 Screening for malignant [facility] 00:00:00 neoplasm of colon Medical Ce [facility]ter (procedure) [code = 065924797] Future Scheduled 1972 Sigmoidoscopy [code = [facility]oscopy] Medical Cent[facility] r Future Scheduled 1972 Screening for malignant [facility] 00:00:00 neoplasm of breast Medical C enter (procedure) [code = 897911819] Future Scheduled 1972 CT Colonography (combo) [facility] 00:00:00 [code = CT [facility] ([facility])] Future Scheduled 1972 Screening for malignant [facility] 00:00:00 neoplasm of colon Medical Ce [facility]ter (procedure) [code = 256692966] Future Scheduled 1972 Screening for malignant [facility] 00:00:00 neoplasm of colon Medical Ce [facility]ter (procedure) [code = 881384382] Future Scheduled 1972 Screening for malignant [facility] 00:00:00 neoplasm of colon Medical Ce [facility]ter (procedure) [code = 234393399] Future Scheduled 1972 Screening for malignant [facility] 00:00:00 neoplasm of colon Medical Ce [facility]ter (procedure) [code = 789411286] Future Scheduled 1972 Sigmoidoscopy [code = [facility] S[facility]oscopy] Medical Cent[facility] r Future Scheduled 1972 Screening for malignant [facility] 00:00:00 neoplasm of breast Medical C enter (procedure) [code = 667932808] Future Scheduled 1972 CT Colonography (combo) [facility] 00:00:00 [code = CT Colonography [facility] (combo)] Future Scheduled 1972 Screening for malignant [facility] 00:00:00 neoplasm of colon Medical Ce [facility]ter (procedure) [code = 263245788] Future Scheduled 1972 Screening for malignant [facility] 00:00:00 neoplasm of colon Medical Ce [facility]ter (procedure) [code = 279890042] Future Scheduled 1972 Screening for malignant [facility] 00:00:00 neoplasm of colon [facility] Ce [facility] (procedure) [code = 792936670] Future Scheduled 1972 Screening for malignant [facility] 00:00:00 neoplasm of colon Medical Ce [facility]ter (procedure) [code = 951615215] Future Scheduled 1972 Sigmoidoscopy [code = [facility]oscopy] Medical Cent[facility] r Future Scheduled 1972 Screening for malignant [facility] 00:00:00 neoplasm of breast Medical C enter (procedure) [code = 035739903] Future Scheduled 1972 CT Colonography (combo) [facility] 00[facility]00:00 [code = CT Colonography [facility] (combo)] Future Scheduled 1972 Screening for malignant [facility] 00:00:00 neoplasm of colon Medical Ce [facility] (procedure) [code = 900429198] Future Scheduled 1972 Screening for malignant [facility] 00:00:00 neoplasm of colon Medical Ce [facility]ter (procedure) [code = 642769471] Future Scheduled 1972 Screening for malignant [facility] 00:00:00 neoplasm of colon Medical Ce [facility]ter (procedure) [code = 424870426] Future Scheduled 1972 Screening for malignant [facility] 00:00:00 neoplasm of colon Medical Ce [facility]ter (procedure) [code = 814123364] Future Scheduled 1972 Sigmoidoscopy [code = [facility] S[facility]oscopy] Medical Cent[facility] Future Scheduled 1972 Screening for malignant [facility] 00:00:00 neoplasm of breast Medical [facility] enter (procedure) [code = 645010326] Future Scheduled 1972 CT Colonography (combo) [facility] 00:00:00 [code = CT Colonography [facility] (combo)] Future Scheduled 1972 Screening for malignant [facility] 00:00:00 neoplasm of colon [facility] (procedure) [code = 554045291] Future Scheduled 1972 Screening for malignant [facility] 00:00:00 neoplasm of colon Medical Ce [facility] (procedure) [code = 771859871] Future Scheduled 1972 Screening for malignant [facility] 00:00:00 neoplasm of colon Medical Ce [facility] (procedure) [code = 551079571] Future Scheduled 1972 Screening for malignant [facility] 00:00:00 neoplasm of colon Medical Ce [facility]ter (procedure) [code = 793364894] Future Scheduled 1972 Sigmoidoscopy [code = [facility]oscopy] Medical Cent[facility] Future Scheduled 1972 Screening for malignant [facility] 00:00:00 neoplasm of breast Medical C enter (procedure) [code = 159479715] Future Scheduled 1972 CT Colonography (combo) [facility] 00:00:00 [code = CT Colonography [facility] (combo)] Future Scheduled 1972 Screening for malignant [facility] 00:00:00 neoplasm of colon Medical Ce [facility]ter (procedure) [code = 856473241] Future Scheduled 1972 Screening for malignant [facility] 00:00:00 neoplasm of colon Medical Ce [facility]ter (procedure) [code = 139390409] Future Scheduled 1972 Screening for malignant [facility] 00:00:00 neoplasm of colon Medical Ce [facility]ter (procedure) [code = 455413189] Future Scheduled 1972 Screening for malignant [facility] 00:00:00 neoplasm of colon Medical Ce [facility]ter (procedure) [code = 865801266] Future Scheduled 1972 Sigmoidoscopy [code = [facility] S[facility]oidoscopy] Medical Cent[facility] r Future Scheduled 1972 Screening for malignant [facility] 00:00:00 neoplasm of breast Medical C enter (procedure) [code = 639120571] Future Scheduled 1972 CT Colonography (combo) [facility] 00:00:00 [code = CT Colonography [facility] (combo)] Future Scheduled 1972 Scre[facility] malignant [facility] Test 00:00:00 neoplasm of colon Medical Ce [facility] (procedure) [code = 572668815] Future Scheduled 1972 Screening for malignant [facility] Test 00:00:00 neoplasm of colon Medical Ce nter (procedure) [code = 786855789] Future Scheduled 1972 Screening for malignant [facility] Test 00:00:00 neoplasm of colon Medical Ce nter (procedure) [code = 364758465] Future Scheduled 1972 Screening for malignant [facility] Test 00:00:00 neoplasm of colon Medical Ce [facility]ter (procedure) [code = 437033138] Future Scheduled 1972 S[facility]oscopy [facility] Future Scheduled 1972 Screening for malignant [facility] Test 00:00:00 neoplasm of breast Medical C enter (procedure) [code = 811995842] Future Scheduled 1972 CT Colonography (combo) [facility] Test 00:00:00 [code = CT [facility] ([facility] Future Scheduled 1972 Screening for malignant [facility] Test 00:00:00 neoplasm of colon Medical Ce [facility]ter (procedure) [code = 561569399] Future Scheduled 1972 Screening for malignant [facility] Test 00:00:00 neoplasm of colon Medical Ce [facility]ter (procedure) [code = 791613427] Future Scheduled 1972 Screening for malignant [facility] Test 00:00:00 neoplasm of colon Medical Ce [facility]ter (procedure) [code = 608168858] Future Scheduled 1972 Screening for malignant [facility] Test 00:00:00 neoplasm of colon Medical Ce [facility]ter (procedure) [code = 095827532] Future Scheduled 1972 Sigmoidoscopy [facility] 00:[facility] S[facility]oscopy] [facility] Future Scheduled 1972 Screening for malignant [facility] Test 00:00:00 neoplasm of breast Medical C enter (procedure) [code = 340633277] Future Scheduled 1972 CT Colonography (combo) [facility] Test 00:00:00 [code = CT Colonography [facility] (combo)] Future Scheduled 1972 Screening for malignant [facility] Test 00:00:00 neoplasm of colon Medical Ce nter (procedure) [code = 527174494] Future Scheduled 1972 Screening for malignant [facility] Test 00:00:00 neoplasm of colon Medical Ce nter (procedure) [code = 231847956] Future Scheduled 1972 Screening for malignant [facility] Test 00:00:00 neoplasm of colon Medical Ce nter (procedure) [code = 084993533] Future Scheduled 1972 Screening for malignant [facility] Test 00:00:00 neoplasm of colon Medical Ce nter (procedure) [code = 582145769] Future Scheduled 1972 Sigmoidoscopy [facility] 00:[facility] S[facility]oscopy] [facility] Cent[facility] Future Scheduled 1972 Screening for malignant [facility] Test 00:00:00 neoplasm of breast Medical C enter (procedure) [code = 438929899] Future Scheduled 1972 CT Colonography (combo) [facility] Test 00:00:00 [code = CT [facility])] Future Scheduled 1972 Screening for malignant [facility] Test 00:00:00 neoplasm of colon Medical Ce [facility]ter (procedure) [code = 622323146] Future Scheduled 1972 Screening for malignant [facility] Test 00:00:00 neoplasm of colon Medical Ce [facility]ter (procedure) [code = 364166055] Future Scheduled 1972 Screening for malignant [facility] Test 00:00:00 neoplasm of colon Medical Ce nter (procedure) [code = 718394374] Future Scheduled 1972 Screening for malignant [facility] Test 00:00:00 neoplasm of colon Medical Ce nter (procedure) [code = 945241013] Future Scheduled 1972 Sigmoidoscopy [facility] 00:[facility] S[facility]oscopy] [facility] Future Scheduled 1972 Screening for malignant [facility] Test 00:00:00 neoplasm of breast Medical C enter (procedure) [code = 577458172] Future Scheduled 1972 CT Colonography (combo) [facility] Test 00:00:00 [code = CT Colonography [facility] (combo)] Future Scheduled 1972 Screening for malignant [facility] Test 00:00:00 neoplasm of colon Medical Ce nter (procedure) [code = 930610544] Future Scheduled 1972 Screening for malignant [facility] Test 00:00:00 neoplasm of colon Medical Ce nter (procedure) [code = 168563066] Future Scheduled 1972 Screening for malignant [facility] Test 00:00:00 neoplasm of colon Medical Ce nter (procedure) [code = 196198556] Future Scheduled 1972 Screening for malignant [facility] Test 00:00:00 neoplasm of colon Medical Ce nter (procedure) [code = 088498285] Future Scheduled 1972 Sigmoidoscopy [code [facility] 00:[facility] S[facility]oscopy] [facility] Cent[facility] Future Scheduled 1972 Screening for malignant [facility] Test 00:00:00 neoplasm of breast Medical C enter (procedure) [code = 789023507] Future Scheduled 1972 CT Colonography (combo) [facility] Test 00:00:00 [code = CT [facility] ([facility])] Future Scheduled 1972 Screening for malignant [facility] Test 00:00:00 neoplasm of colon Medical Ce nter (procedure) [code = 385183363] Future Scheduled 1972 Screening for malignant [facility] Test 00:00:00 neoplasm of colon Medical Ce nter (procedure) [code = 900692779] Future Scheduled 1972 Screening for malignant [facility] Test 00:00:00 neoplasm of colon Medical Ce nter (procedure) [code = 010348511] Future Scheduled 1972 Screening for malignant [facility] Test 00:00:00 neoplasm of colon Medical Ce nter (procedure) [code = 265230485] Future Scheduled 1972 Sigmoidoscopy [facility]code [facility] 00:[facility]oscopy] [facility] Cent[facility] Future Scheduled 1972 Screening for malignant [facility] Test 00:00:00 neoplasm of breast Medical C enter (procedure) [code = 331083206] Future Scheduled 1972 CT Colonography (combo) [facility] Test 00:00:00 [code = CT Colonography [facility] (combo)] Future Scheduled 1972 Screening for malignant [facility] Test 00:00:00 neoplasm of colon Medical Ce nter (procedure) [code = 656194092] Future Scheduled 1972 Screening for malignant [facility] Test 00:00:00 neoplasm of colon Medical Ce nter (procedure) [code = 825890020] Future Scheduled 1972 Screening for malignant [facility] Test 00:00:00 neoplasm of colon Medical Ce nter (procedure) [code = 139102640] Future Scheduled 1972 Screening for malignant [facility] Test 00:00:00 neoplasm of colon Medical Ce nter (procedure) [code = 907773918] Future Scheduled 1972 Sigmoidoscopy [code = [facility] 00:[facility] S[facility]oscopy] [facility] Future Scheduled 1972 Screening for malignant [facility] Test 00:00:00 neoplasm of breast Medical C enter (procedure) [code = 583946610] Future Scheduled 1972 CT Colonography (combo) [facility] Test 00:00:00 [code = CT [facility])] Future Scheduled 1972 Screening for malignant [facility] Test 00:00:00 neoplasm of colon Medical Ce nter (procedure) [code = 079338833] Future Scheduled 1972 Screening for malignant [facility] Test 00:00:00 neoplasm of colon Medical Ce nter (procedure) [code = 934326026] Future Scheduled 1972 Screening for malignant [facility] Test 00:00:00 neoplasm of colon Medical Ce nter (procedure) [code = 256157584] Future Scheduled 1972 Screening for malignant [facility] Test 00:00:00 neoplasm of colon Medical Ce nter (procedure) [code = 606229058] Future Scheduled 1972 Sigmoidoscopy [code = [facility] 00:[facility] S[facility]oidoscopy] [facility] Cent[facility] Future Scheduled 1972 Screening for malignant [facility] Test 00:00:00 neoplasm of breast Medical C enter (procedure) [code = 424964034] Future Scheduled 1972 CT Colonography (combo) [facility] Test 00:00:00 [code = CT [facility])] Future Scheduled 1972 Screening for malignant [facility] Test 00:00:00 neoplasm of colon Medical Ce nter (procedure) [code = 594830212] Future Scheduled 1972 Screening for malignant [facility] Test 00:00:00 neoplasm of colon Medical Ce nter (procedure) [code = 392482380] Future Scheduled 1972 Screening for malignant [facility] Test 00:00:00 neoplasm of colon Medical Ce nter (procedure) [code = 250893357] Future Scheduled 1972 Screening for malignant [facility] Test 00:00:00 neoplasm of colon Medical Ce nter (procedure) [code = 800081649] Future Scheduled 1972 Sigmoidoscopy [code = [facility] 00:[facility] S[facility]oidoscopy] Medical Cent[facility] Future Scheduled 1972 Screening for malignant [facility] Test 00:00:00 neoplasm of breast Medical C enter (procedure) [code = 572735466] Future Scheduled 1972 CT Colonography (combo) [facility] Test 00:00:00 [code = CT [facility])] Future Scheduled 1972 Screening for malignant [facility] Test 00:00:00 neoplasm of colon Medical Ce nter (procedure) [code = 043159166] Future Scheduled 1972 Screening for malignant [facility] Test 00:00:00 neoplasm of colon Medical Ce nter (procedure) [code = 905223582] Future Scheduled 1972 Screening for malignant [facility] Test 00:00:00 neoplasm of colon Medical Ce nter (procedure) [code = 250794088] Future Scheduled 1972 Screening for malignant [facility] Test 00:00:00 neoplasm of colon Medical Ce nter (procedure) [code = 573947927] Future Scheduled 1972 Sigmoidoscopy [code = [facility] 00:[facility] S[facility]oscopy] [facility] Cent[facility] Future Scheduled 1972 Screening for malignant [facility] Test 00:00:00 neoplasm of breast Medical C enter (procedure) [code = 058669614] Future Scheduled 1972 CT Colonography (combo) [facility] Test 00:00:00 [code = CT [facility])] Future Scheduled 1972 Screening for malignant [facility] Test 00:00:00 neoplasm of colon Medical Ce nter (procedure) [code = 129685261] Future Scheduled 1972 Screening for malignant [facility] Test 00:00:00 neoplasm of colon Medical Ce nter (procedure) [code = 519989504] Future Scheduled 1972 Screening for malignant [facility] Test 00:00:00 neoplasm of colon Medical Ce nter (procedure) [code = 367873267] Future Scheduled 1972 Screening for malignant [facility] Test 00:00:00 neoplasm of colon Medical Ce nter (procedure) [code = 046187161] Future Scheduled 1972 Sigmoidoscopy [code = [facility] 00:[facility] S[facility]oidoscopy] Medical Christine r Future Scheduled 1972 Screening for malignant [facility] Test 00:00:00 neoplasm of breast Medical C enter (procedure) [code = 953170219] Future Scheduled 1972 CT Colonography (combo) [facility] Test 00:00:00 [code = CT [facility] ([facility])] Future Scheduled 1972 Screening for malignant [facility] Test 00:00:00 neoplasm of colon Medical Ce nter (procedure) [code = 460276946] Future Scheduled 1972 Screening for malignant [facility] Test 00:00:00 neoplasm of colon Medical Ce nter (procedure) [code = 013710521] Future Scheduled 1972 Screening for malignant [facility] Test 00:00:00 neoplasm of colon Medical Ce nter (procedure) [code = 332423852] Future Scheduled 1972 Screening for malignant [facility] Test 00:00:00 neoplasm of colon Medical Ce nter (procedure) [code = 015426028] Future Scheduled 1972 Sigmoidoscopy [code = [facility] 00:[facility] Sigmoidoscopy] Medical Christine r Future Scheduled 1972 Screening for malignant [facility] Test 00:00:00 neoplasm of breast Medical C enter (procedure) [code = 516349940] Future Scheduled 1972 CT Colonography (combo) [facility] Test 00:00:00 [code = CT [facility]ography [facility] (combo)] Future Scheduled 1972 Screening for malignant [facility] Test 00:00:00 neoplasm of colon Medical Ce nter (procedure) [code = 089745373] Future Scheduled 1972 Screening for malignant [facility] Test 00:00:00 neoplasm of colon Medical Ce nter (procedure) [code = 298299981] Future Scheduled 1972 Screening for malignant [facility] Test 00:00:00 neoplasm of colon Medical Ce nter (procedure) [code = 246230932] Future Scheduled 1972 Screening for malignant [facility] Test 00:00:00 neoplasm of colon Medical Ce nter (procedure) [code = 729370507] Future Scheduled 1972 Sigmoidoscopy [code = [facility] 00:[facility] S[facility]oidoscopy] Medical Cent[facility] Future Scheduled 1972 Screening for malignant [facility] Test 00:00:00 neoplasm of breast Medical C enter (procedure) [code = 562640004] Future Scheduled 1972 CT Colonography (combo) [facility] Test 00:00:00 [code = [facility] ([facility])] Future Scheduled 1972 Screening for malignant [facility] Test 00:00:00 neoplasm of colon Medical Ce nter (procedure) [code = 915711430] Future Scheduled 1972 Screening for malignant [facility] Test 00:00:00 neoplasm of colon Medical Ce nter (procedure) [code = 060501034] Future Scheduled 1972 Screening for malignant [facility] Test 00:00:00 neoplasm of colon Medical Ce nter (procedure) [code = 115491182] Future Scheduled 1972 Screening for malignant [facility] Test 00:00:00 neoplasm of colon Medical Ce nter (procedure) [code = 429633838] Future Scheduled 1972 Sigmoidoscopy [code = [facility] 00:[facility] S[facility]oidoscopy] Medical Christine r Future Scheduled 1972 Screening for malignant [facility] Test 00:00:00 neoplasm of breast Medical C enter (procedure) [code = 541544483] Future Scheduled 1972 CT Colonography (combo) [facility] Test 00:00:00 [code = CT [facility] ([facility])] Future Scheduled 1972 Screening for malignant [facility] Test 00:00:00 neoplasm of colon Medical Ce nter (procedure) [code = 159433061] Future Scheduled 1972 Screening for malignant [facility] Test 00:00:00 neoplasm of colon Medical Ce nter (procedure) [code = 466929711] Future Scheduled 1972 Screening for malignant [facility] Test 00:00:00 neoplasm of colon Medical Ce nter (procedure) [code = 491996154] Future Scheduled 1972 Screening for malignant [facility] Test 00:00:00 neoplasm of colon Medical Ce nter (procedure) [code = 645027955] Future Scheduled 1972 Sigmoidoscopy [code = [facility] 00:[facility] S[facility]oscopy] Medical Cent[facility] Future Scheduled 1972 Screening for malignant [facility] Test 00:00:00 neoplasm of breast Medical C enter (procedure) [code = 668773581] Future Scheduled 1972 CT Colonography (combo) [facility] Test 00:00:00 [code = CT [facility] ([facility])] Future Scheduled 1972 Screening for malignant [facility] Test 00:00:00 neoplasm of colon Medical Ce nter (procedure) [code = 607677130] Future Scheduled 1972 Screening for malignant [facility] Test 00:00:00 neoplasm of colon Medical Ce nter (procedure) [code = 065488691] Future Scheduled 1972 Screening for malignant [facility] Test 00:00:00 neoplasm of colon Medical Ce nter (procedure) [code = 117556665] Future Scheduled 1972 Screening for malignant [facility] Test 00:00:00 neoplasm of colon Medical Ce nter (procedure) [code = 237365330] Future Scheduled 1972 Sigmoidoscopy [code = [facility] 00:[facility] S[facility]oscopy] Medical Cent[facility] Future Scheduled 1972 Screening for malignant [facility] Test 00:00:00 neoplasm of breast Medical C enter (procedure) [code = 717491778] Future Scheduled 1972 CT Colonography (combo) [facility] Test 00:00:00 [code = CT [facility] ([facility])] Future Scheduled 1972 Screening for malignant [facility] Test 00:00:00 neoplasm of colon Medical Ce nter (procedure) [code = 065234460] Future Scheduled 1972 Screening for malignant [facility] Test 00:00:00 neoplasm of colon Medical Ce nter (procedure) [code = 717735902] Future Scheduled 1972 Screening for malignant [facility] Test 00:00:00 neoplasm of colon Medical Ce nter (procedure) [code = 417296395] Future Scheduled 1972 Screening for malignant [facility] Test 00:00:00 neoplasm of colon Medical Ce nter (procedure) [code = 930668777] Future Scheduled 1972 Sigmoidoscopy [code = [facility] 00:[facility] S[facility]oscopy] [facility] Cent[facility] Future Scheduled 1972 Screening for malignant [facility] Test 00:00:00 neoplasm of breast Medical C enter (procedure) [code = 477763258] Future Scheduled 1972 CT Colonography (combo) [facility] Test 00:00:00 [code = CT [facility] ([facility])] Future Scheduled 1972 Screening for malignant [facility] Test 00:00:00 neoplasm of colon Medical Ce nter (procedure) [code = 695048170] Future Scheduled 1972 Screening for malignant [facility] Test 00:00:00 neoplasm of colon Medical Ce nter (procedure) [code = 385306957] Future Scheduled 1972 Screening for malignant [facility] Test 00:00:00 neoplasm of colon Medical Ce nter (procedure) [code = 909910925] Future Scheduled 1972 Screening for malignant [facility] Test 00:00:00 neoplasm of colon Medical Ce nter (procedure) [code = 684254459] Future Scheduled 1972 Sigmoidoscopy [facility]code [facility] 00:[facility]oscopy] Medical Cent[facility] Future Scheduled 1972 Screening for malignant [facility] Test 00:00:00 neoplasm of breast Medical C enter (procedure) [code = 075083992] Future Scheduled 1972 CT Colonography (combo) [facility] Test 00:00:00 [code = CT [facility] ([facility])] Future Scheduled 1972 Screening for malignant [facility] Test 00:00:00 neoplasm of colon Medical Ce nter (procedure) [code = 063009646] Future Scheduled 1972 Screening for malignant [facility] Test 00:00:00 neoplasm of colon Medical Ce nter (procedure) [code = 988377419] Future Scheduled 1972 Screening for malignant [facility] Test 00:00:00 neoplasm of colon Medical Ce nter (procedure) [code = 245932347] Future Scheduled 1972 Screening for malignant [facility] Test 00:00:00 neoplasm of colon Medical Ce nter (procedure) [code = 081807666] Future Scheduled 1972 Sigmoidoscopy [code [facility] 00:[facility]oscopy] Medical Cent[facility] Future Scheduled 1972 Screening for malignant [facility] Test 00:00:00 neoplasm of breast Medical C enter (procedure) [code = 456468000] Future Scheduled 1972 CT Colonography (combo) [facility] Test 00:00:00 [code = CT Colonography [facility] (combo)] Future Scheduled 1972 Screening for malignant [facility] Test 00:00:00 neoplasm of colon Medical Ce nter (procedure) [code = 068127515] Future Scheduled 1972 Screening for malignant [facility] Test 00:00:00 neoplasm of colon Medical Ce nter (procedure) [code = 760363758] Future Scheduled 1972 Screening for malignant [facility] Test 00:00:00 neoplasm of colon Medical Ce nter (procedure) [code = 239264013] Future Scheduled 1972 Screening for malignant [facility] Test 00:00:00 neoplasm of colon Medical Ce nter (procedure) [code = 183166720] Future Scheduled 1972 Sigmoidoscopy [facility]] Medical Cente r Goal Plan of Care Note [code = 18585-7] Goal Plan of Care Note [code = 57457-3] Goal Plan of Care Note [code = 28619-0] Goal Plan of Care Note [code = 50981-9] Goal Plan of Care Note [code = 62663-7] Goal Plan of Care Note [code = 67274-9] Goal Plan of Care Note [code = 40340-7] Goal Plan of Care Note [code = 02993-4] Goal Plan of Care Note [code = 55626-3] Goal Plan of Care Note [code = 10384-5] Goal Plan of Care Note [code = 91495-5] Goal Plan of Care Note [code = 30300-8] Goal Plan of Care Note [code = 76361-3] Goal Plan of Care Note [code = 28661-2] Goal Plan of Care Note [code = 80139-1] Goal Plan of Care Note [code = 74104-1] Goal Plan of Care Note [code = 30621-1] Goal Plan of Care Note [code = 79744-9] Goal Plan of Care Note [code = 29464-1] Goal Plan of Care Note [code = 67733-2] Goal Plan of Care Note [code = 85279-4] Goal Plan of Care Note [code = 40446-9] Goal Plan of Care Note [code = 86605-0] Goal Plan of Care Note [code = 73580-0] Goal Plan of Care Note [code = 44549-8] Goal Plan of Care Note [code = 28356-7] Goal Plan of Care Note [code = 18607-2] Goal Plan of Care Note [code = 83494-8] Goal Plan of Care Note [code = 22428-0] Goal Plan of Care Note [code = 67910-9] Goal Plan of Care Note [code = 52174-9] Goal Plan of Care Note [code = 09150-3] Goal Plan of Care Note [code = 03986-6] Goal Plan of Care Note [code = 54265-9] Goal Plan of Care Note [code = 01843-4] Encounters Start End Encounter Admission Attending Care Care Encounter Source Date/Time Date/Time Type Type Clinicians Facility Department ID 2023-06-16 Inpatient EL AYDEE GO [facility] [id number] [facility] 09:32:36 2023-06-16 Inpatient EL ARIFAYDEE [facility] [id number] [facility] 09:32:09 2023-06-16 Inpatient EL ARIFAYDEE [facility] [id number] [facility] 09:31:53 2023-06-14 Inpatient EL ARIAYDEE Galan [facility] [id number] [facility] 07:46:02 2023-06-14 Inpatient EL ARIFAYDEE [facility] [id number] [facility] 07:39:22 2023-06-14 Inpatient EL ARIFAYDEE [facility] [id number] [facility] 06:38:38 2023-06-13 Inpatient EL DEISI [facility] [id number] [facility] 13:44:18 RASEBAS 2023-06-13 Inpatient EL AYDEE GO [facility] [id number] [facility] 11:45:24 2023-05-08 Outpatient EL ADAM GARCIA [facility] Surgery [id number] [facility] 11:21:00 2023-04-01 Inpatient ER DEVORA [facility] [id number] [facility] 14:26:29 MRINALINI 2023-03-31 Inpatient ER LUIS CARLOS [facility] [id number] [facility] 09:24:52 MARIAH 2021-05-20 Emergency [facility] [id number] Univers 18:48:04 [facility] 2021-05-20 Emergency [facility] [id number] Univers 12:43:40 [facility] 2023-06-13 2023-06-16 Inpatient ER AYDEE GO [facility] Internal [id number] [facility] 03:43:00 19:45:00 Med 2023-06-13 2023-06-16 Hospital ER Cara Burgess [facility] [id number] 03:43:00 19:45:00 Encounter Aydee Go [facility] 2023-06-15 2023-06-15 Orders [facility], [facility] [id number] 00:00:00 00:00:00 Only Provider [facility]ly [facility] 2023-06-13 2023-06-13 Outpatient AYDEE DICKENS [facility] [id number] 16:30:06 16:30:06 [facility] 2023-06-13 2023-06-13 Orders [facility] [id number] 00:00:00 00:00:00 Only [facility] 2023-06-13 2023-06-13 Travel [facility] [id number] [facility] 00:[facility] 00:[facility]:00 [facility] 2023-06-12 2023-06-12 Telephone Patricia [facility] [id number] 00:00:00 00:00:[address] [place] [facility] 2023-05-28 2023-06-04 Inpatient ADAM BRANTLEY [facility] Surgery [id number] [facility] 06:45:00 17:36:00 2023-05-28 2023-06-04 Hospital Adam Brantley [facility] [id number] 06:45:00 17:36:00 Encounter [facility] 2023-06-01 2023-06-01 Anesthesia Harry Newsome [facility] [id number] 09:10:00 13:00:00 Event Antwon [facility] 2023-06-01 2023-06-01 Surgery Adam Garcia [facility] [id number] 09:00:00 11:30:00 [facility] 2023-06-01 2023-06-01 Outpatient ADAM BRANTLEY [facility] [id number] [facility] 09:47:57 09:47:57 2023-06-01 2023-06-01 Outpatient ADAM BRANTLEY [facility] [id number] [facility] 09:40:34 09:40:34 2023-05-31 2023-05-31 Inpatient [facility] [id number] [facility] 09:25:55 23:59:00 2023-05-31 2023-05-31 [facility] Adam Garcia [facility] [id number] 09:00:00 23:59:00 Encounter [facility] 2023-05-28 2023-05-28 Outpatient ADAM BRANTLEY [facility] [id number] [facility] 18:15:29 18:15:29 2023-05-28 2023-05-28 Anesthesia Ramya [facility] [id number] 08:30:00 11:54:[address] [facility] 2023-05-28 2023-05-28 Outpatient ADAM BRANTLEY [facility] SLE [id number] [facility] 11:41:14 11:41:14 2023-05-282023-05-28 Surgery Adam Garcia [facility] [id number] 08:30:00 11:00:00 [facility] 2023-05-28 2023-05-28 Outpatient ADAM BRANTLEY [facility] SLE [id number] [facility] 10:00:47 10:00:47 2023-05-28 2023-05-28 Travel [facility] [id number] [facility] 00:[facility] 00:00:00 [facility] 2023-05-26 2023-05-26 [facility] Adam Garcia [facility] [id number] 09:00:00 09:00:00 Encounter [facility] 2023-05-26 2023-05-26 Outpatient ADAM BRANTLEY [facility] SLE [id number] [facility] 00:00:00 00:00:00 2023-05-26 2023-05-26 Outpatient [facility] SLE [id number] [facility] 00:00:00 00:00:00 2023-05-26 2023-05-26 Travel [facility] [id number] [facility] 00[facility]:00 [facility] 2023-05-13 2023-05-13 Outpatient SFA SFA [id number] Adria 11:43:03 11:43:03 1025 F Mauricio 2023-05-12 2023-05-12 [facility] Adam Garcia [facility] [id number] 00:[facility] 00:00:00 Only [facility] 2023-05-08 2023-05-08 Outpatient SFA SFA [id number] Adria 14:11:21 14:11:21 1020 F Mauricio 2023-03-29 2023-04-02 Inpatient ER DEISI LOZOYA Neurology 2 [id number] SLE 19:25:00 20:48:00 [facility] 2023-03-29 2023-04-02 [facility] ER Connie Davey [facility] [id number] 19:25:00 20:48:00 [facility] 2023-03-31 Inpatient ER JEVONNDJABIER, SLEH SLEH [id number] SLEH 08:32:56 00:00:00 [facility] 2023-03-30 2023-03-30 Outpatient ER NALABDIRIZAK, SLEH SLEH [id number] [facility]H 10:24:12 23:59:00 CONNIE 2023-03-30 2023-03-30 Hospital Nalam, [facility] [id number] 09:40:00 23:59:00 Encounter [facility] 2023-03-30 2023-03-30 Outpatient ER JEVONNDJABIER, SLEH SLEH [id number] [facility] 13:46:20 13:46:20 [facility] 2023-03-30 2023-03-30 Outpatient ER LUIS CARLOS, SLEH SLEH [id number] [facility]H 13:46:14 13:46:14 [facility] 2023-03-30 2023-03-30 Outpatient ER NALAM, SLEH SLEH [id number] [facility]H 10:24:04 10:24:04 [facility] 2023-03-30 2023-03-30 Orders [facility] [id number] 00:00:00 00:00:00 Only [facility] 2023-03-30 2023-03-30 Travel [facility] [id number] [facility] 00:[facility] 00:00:00 [facility] 2022-12-11 2022-12-11 Emergency X JENNY, K [facility] ERT [id number] Univers 08:56:00 15:29:00 ity of [facility] 2022-12-11 2022-12-11 Emergency Jenny, K [facility] 1.2.840.114 [id number] Univers 08:56:00 15:29:00 Lorelei HERNANDEZ 350.1.13.10 tristan Gan 4.2.7.2.686 [facility] [id number] [place] [id number] Branch 2022-11-17 2022-11-18 Emergency X BRIANA, [facility] ERT [id number] Univers 17:25:00 01:19:00 RITCHIE najera [facility] 2022-11-17 2022-11-18 Emergency Briana, [facility] [id number] Univers 17:25:00 01:19:00 Ritchie HERNANDEZ 350.1.13.10 [place] [id number] [facility] 084 Branch 2022-08-28 2022-08-28 Patient Shy Beckman 1.2.840.114 [id number] Univers 00:00:00 00:00:00 Outreach E WALLACE 350.1.13.10 i [place] [id number] [facility] 403 [address] 2022-08-20 2022-08-20 Patient Shy Beckman 1.2.840.114 10 [id number] Univers 00:00:00 00:00:00 Outreach E [place] 350.1.13.10 i [place] [id number] [facility] [address] [place] 2022-08-02 2022-08-03 Outpatient ER ROXI, [facility] Neurology [id number] [facility] 17:30:00 14:29:00 [facility] 2022-08-02 2022-08-03 [facility] Halima Guna [facility] [id number] 17:30:00 14:29:00 Encounter Jen Geller [facility] 2022-08-03 2022-08-03 Orders [facility] [id number] 00:00:00 00:00:00 Only [facility] 2022-08-02 2022-08-02 Travel [facility] [id number] [facility] 00:00:00 00:00:00 [facility] 2022-07-31 2022-08-01 Inpatient X ARDEN [facility] [id number] Univers 11:42:00 21:48:00 LORENZA najera [facility] 2022-07-31 2022-08-01 [facility] Sav Rondon [facility] 1.2.840.1 14 [id number] Univers 11:42:00 21:48:00 Encounter Lorenza Lowry 350.1.13.10 it[place] [id number] [facility] 080 [address] 2022-08-01 2022-08-01 Transition BLAYNE Nicole 1.2.840.114 [id number] Univers 00:00:00 00:00:00 of Care Maria Teresa [place] 350.1.13.10 [place] [id number] [facility] 403 [address] 2022-07-28 2022-07-28 Outpatient SFA SFA [id number] Adria 14:41:38 14:41:38 0109 F [place] 2022-07-28 2022-07-28 Outpatient [id number]- [id number] 3d [id number] 00:00:00 00:00:00 Visit [id number] 2022-07-24 2022-07-24 Outpatient SFA SFA [id number] Adria 13:24:40 13:24:40 0105 F Mauricio 2022-05-23 2022-05-23 Outpatient SFA SFA [id number] Adria 14:51:01 14:51:01 1104 F [place] 2022-05-23 2022-05-23 Outpatient [id number]- [id number]-b 00:00:00 00:00:00 Visit [id number] 7850ee 2022-05-04 2022-05-08 Outpatient X CHANTEL MATTHEWS [facility] S NS [id number] Univers 20:22:00 14:44:00 CHANTEL MATTHEWS ity [facility] 2022-05-04 2022-05-08 Emergency BrinerBrandyn 1.2.840.1 14 [id number] Univers 20:22:00 14:44:00 Chantel Matthews 350.1.13 .10 ity of [facility] 4.2.7.2.686 [facility] [id number] [place] [id number] Branch 2022-04-13 2022-04-15 Inpatient X CONRAD [facility] BERNARDINO [id number] Univers 13:06:00 15:00:00 [facility] ity of [facility] 2022-04-13 2022-04-15 Hospital Sapna Vargas 1.2.84 0.114 [id number] Univers 13:06:00 15:00:00 Encounter Glory Sarah Sterling [place] 350. 1.13.10 ity [facility] 4.2.7.2.686 [place] [id number] [place] [id number] Branch 2022-02-19 2022-02-19 Imm/Inj Vaccine, [facility] [place] 1.2.840.114 [id number] Univers 10:20:00 10:30:00 Visit Jose Pak 350.1.13.10 [place] [facility] [id number] [facility] [address] 2022-02-19 2022-02-19 Outpatient R JOSE PAK [facility] [id number] Univers 10:20:00 10:20:00 ity of [facility] 2021-11-23 2021-11-23 Emergency X ESTEFANY [facility] ERT [id number] Univers 15:07:00 17:03:00 NICHELLE ity of [facility] 2021-11-23 2021-11-23 Emergency Sav Rondon [facility] 1.2.840. 114 [id number] Univers 15:07:00 17:03:00 Nichelle Virk 350.1.13. 10 [facility] 4.2.7.2.686 [facility] [id number] [facility] 084 [address] 2021-11-21 2021-11-21 Outpatient R [facility] [id number] Univers 09:40:00 09:40:00 ity of [facility] 2021-05-24 2021-05-24 Outpatient R JOSE PAK [facility] [id number] Univers 09:30:00 09:30:00 ity of [facility] 2021-05-24 2021-05-24 Imm/Inj Vaccine, [facility] [place] 1.2.840.114 [id number] Univers 08:47:51 08:57:51 Visit Jose aPk 350.1.13.10 [place] [facility] [id number] [facility] [address] [place] 2021-05-03 2021-05-03 Outpatient R JOSE PAK [facility] [id number] Univers 09:40:00 09:59:35 ity of [facility] 2021-05-03 2021-05-03 Imm/Inj Vaccine, [facility] [place] 1.2.840.114 [id number] Univers 09:17:43 09:59:35 Visit Jose Pak 350.1.13.10 [place] [id number] [facility] [address] 2021-04-16 2021-04-16 Orders Doctor EWELINA 1.2.840.114 [id number] Univers 00:00:00 00:00:00 Only Unassigned, [place] 350.1.13.10 ity of [facility] 4.2.7.2.686 Javier as [id number] [facility] 009 [address] 2021-03-17 2021-03-17 Telephone EWELINA Nava 1.2.890.250 [id number] Univers 00:00:00 00:00:00 Aneatrice [place] 350.1.13.10 ity of HOSPITAL 4.2.7.2.686 Javier as [id number] [facility] 019 [address] 2021-03-16 2021-03-16 Emergency Palmer MTKEVIN 1.2.840.114 [id number] Univers 20:08:00 23:24:00 Fabrice Hernandez 350.1.13.10 i [place] [id number] [facility] 0[address] 2021-03-14 2021-03-14 Urgent Lydia Desouza [facility] 1.2.840.114 [id number] Univers 18:59:34 20:19:13 Care Unknown, Attending [facility].1.13.10 [facility] 4.2.7.2.686 Javier as Prem?Blea [phone] [address] [facility] 2021-03-14 2021-03-14 Outpatient R UNKNOWN, [facility] [id number] Univers 19:00:00 19:00:00 ATTENDING ity [facility] 2021-02-19 2021-02-19 Emergency [facility] 1.2.492.213 [id number] Univers 10:49:00 14:48:00 Anali Hernandez 350.1.13.10 i ty [facility] [place] [id number] [address] 2019-03-09 2019-03-09 Refkimberley [facility] 1.2.840.114 [id number] 00:00:00 00:00:00 Yehuda Hernandez 350.1.13.10 [place] 4.2.7.2.686 Professio [id number] [address] 2019-03-09 2019-03-09 Dick [facility] 1.2.840.114 [id number] [facility] 00:00:00 00:00:00 Yehuda Hernandez 350.1.13.10 ity [facility] [place] [id number] [address] Results Test Description Test Time Test Comments Results Result Comments Source BLOOD CULTURE 2023-06-18 07:00:09 Test Item Value Reference Range Interpretation Comme nts CULTURE (BEAKER) (test code = 1095) No growth in 5 days BLOOD [id number] 07:00:09 Test Item Value Reference Range Interpretation Comments CULTURE (BEAKER) (test No growth in 5 days code = 1095) T-SPOT(R).[id number] 18:35:00 Test Item Value Reference Range Interpretation Comments T-SPOT.TB (test code Negative SeeBelow Normal Value: NegativeA = [id number]) negative test r esult does not exclude the possibility of exposure to or infection with Mycobacterium tuberculosis (M.tuberculosis ). Patients with r ecent exposure to TB infected individuals exh ibiting a negative T-SPOT .TB result should be consi dered for retesting withi n 6 weeks or if other rel evant clinical sympto ms indicate. Resul ts from T-SPOT.TB testi ng must be used in conjunc tion with each individual 's epidemiological history, current medical status, and results of other diagnostic eval uations. The T-SPOT.TB t est is qualitative and results are reported as positive, borderline or n egative, given that the test controls perfor m as expected. In li ne with the Centers for Disease Control and Pre vention's 2009 recommenda tion to report quantita tive measurements al ongside the qualitative result, the laboratory provides spot counts for informational p urposes only. The T-SPO T.TB test should not be i nterpreted as a quantitati ve test. 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 The patient was counseled and informed consent was obtained. Topical and intravenous anesthesia was administered. The esophagus was intubated without difficulty. The probe was passed and only the initial 4- chamber view was obtained, the patient became agitated, the probe was withdrawn and the procedure aborted. No apparent complications.. Summary 1. The probe was passed and only the initial 4-chamber view was obtained,the patient became agitated, the probe was withdrawn and the procedure aborted. No apparent complications. Recommend repeat study with sedation by anesthesiology. 2. Mild MV leaflet thickening. Mild mitral regurgitation. No obvious masses on the mitral valve. Signature Findings Technical Quality: Technically adequate exam. Aortic Valve Not visualized. Mitral Valve Mild MV leaflet thickening. Mild mitral regurgitation. No obvious masses on the mitral valve. Tricuspid Valve Partially visualized. Pulmonic Valve Not visualized.[facility] [id number] 09:55:41 Test Item Value Reference Range Interpretation Comments Result (test code = 6463-4) No MRSA isolated [facility] [id number] 09:55:41 Test Item Value Reference Range Interpretation Comments CULTURE (Viewbix) (test code No MRSA isolated = 1095) CRYPTOCOCCAL [id number] 15:50:36 Test Item Value Reference Range Interpretation Comments CRYPTOCOCCAL ANTIGEN, SERUM Negative Negative, Interference (Viewbix) (test code = 1828) SPUTUM CULTURE + GRAM [id number] 10:30:11 Test Item Value Reference Range Interpretation Comments CULTURE (Viewbix) PSEUDOMONAS A 2+ Pseudomo frank (test code = 1095) AERUGINOSA aeruginos a Amikacin (test code See_Comment S [Automa sherice = 1) message] The system which generated this result transmitted reference range : Susceptible 0-1 6 , Resistant <0 or >16 . The reference range was not used to interpret this result as normal/abnormal . Aztreonam (test code See_Comment S [Autom ated = 32) message] The system which generated this result transmitted reference range : Susceptible 0-8 , Resistant <0 or >8 . The reference range was not used to interpret this result as normal/abnormal . Cefepime (test code See_Comment S [Automa sherice = 51) message] The system which generated this result transmitted reference range : Susceptible 0-8 , Resistant <0 or >8 . The reference range was not used to interpret this result as normal/abnormal . Ceftazidime (test See_Comment S [Automate d code = 27) message] The system which generated this result transmitted reference range : Susceptible 0-8 , Resistant <0 or >8 . The reference range was not used to interpret this result as normal/abnormal . Ciprofloxacin (test See_Comment S [Automa sherice code = 7) message] The system which generated this result transmitted reference range : Susceptible 0-0 .5 , Resistant <0 or >.5 . The reference range was not used to interpret this result as normal/abnormal . Gentamicin (test See_Comment S [Automated code = 18) message] The system which generated this result transmitted reference range : Susceptible 0-4 , Resistant <0 or >4 . The reference range was not used to interpret this result as normal/abnormal . Levofloxacin (test See_Comment S [Automat ed code = 22) message] The system which generated this result transmitted reference range : Susceptible 0-1 , Resistant <0 or >1 . The reference range was not used to interpret this result as normal/abnormal . Meropenem (test code See_Comment S [Autom ated = 34) message] The system which generated this result transmitted reference range : Susceptible 0-2 , Resistant <0 or >2 . The reference range was not used to interpret this result as normal/abnormal . Piperacillin (test See_Comment S [Automat ed code = 24) message] The system which generated this result transmitted reference range : Susceptible 0-1 6 , Resistant <0 or >16 . The reference range was not used to interpret this result as normal/abnormal . Piperacillin + See_Comment S [Automated Tazobactam (test message] Th e code = 29) system which generated this result transmitted reference range : Susceptible 0-1 6 , Resistant <0 or >16 . The reference range was not used to interpret this result as normal/abnormal . Tobramycin (test See_Comment S [Automated code = 25) message] The system which generated this result transmitted reference range : Susceptible 0-4 , Resistant <0 or >4 . The reference range was not used to interpret this result as normal/abnormal . GRAM STAIN RESULT 3+ WBCs (BEAKER) (test code = 1123) GRAM STAIN RESULT 10-15 epithelial (BEAKER) (test code cells = 214290) GRAM STAIN RESULT 2+ gram positive (BEAKER) (test code cocci in chains = 991490) and pairs GRAM STAIN RESULT 1+ gram negative (BEAKER) (test code rods = 687167) GRAM STAIN RESULT 1+ yeast (BEAKER) (test code = 217092) 2+ Normal respiratory rebel presentVANCOMYCIN LEVEL, [id number] 06:41:26 Test Item Value Reference Range Interpretation Comments VANCOMYCIN TROUGH (BEAKER) (test 17.0 ug/mL 10.0-20.0 code = 522) [employer] Accessory Installer ID - ADMINECHO W CONTRAST & [id number] 13:44:03Transthoracic Echocardiography Report (TTE) Demographics Patient Name YUE LAWS Date of Study06/14/2023 ESTELLE Gender Female Visit Number [id number] Race Room Number 1055 Number Date of 1970 Referring Aydee Go MD Physician Age 53 year(s)Cage Fighter James Albarran RDCS Interpreting Physician Brian MDProcedure Type of Study TTE procedure:2DECHO W DOPPLER(CW/PW/COLOR) (Routine)Indications:Suspected infective endocarditis with positive cultures or newmurmur.Clinical HistoryCOPDCVADiverticulitisHTNPADSeizureCardiac Cath ontrast Medium: Definity. Amount - 2 mlHeight: 63 inches Weight: 86.64 kg (191 lbs) BSA: 1.9 m^2 BMI: 33.83 kg/m^2HR: 92 bpm BP: 99/66 mmHg Summary 1. LV endocardium is adequately visualized with IV ultrasound enhancing agent. 2. The left ventricle is chamber size (by vol index) is severely enlarged (female - LVED vol >80ml/m2). Eccentric LV hypertrophy. Global LV systolic function moderately r educed . LVEF by Downs's method of disk assessment is moderately reduced (35- 39%) . All of the LV segments are moderately hypokinetic . Grade 2 diastolic dysfunction (moderately increased LA pressure). 3. The right ventricular chamber size and systolic function are normal. 4. LA size is severely enlarged . 5. There is aortic valve sclerosis without evidence of stenosis. Mild aortic regurgitation. 6. Unable to estimate peak systolic PA pressure; inadequate TR velocity signal. Previous Study In comparison with the prior exam 03/31/23 the following changes are noted: EF 35-39% . Signature Findings Rhythm/BP Regular sinus rhythm during the exam. Left Ventricle LV endocardiumis adequately visualized with IV ultrasound enhancing agent. The left ventricle is chamber size (by vol index) is severely enlarged (female - LVED vol >80ml/m2). Eccentric LV hypertrophy. Global LV systolic function moderately reduced . LVEF by Downs's method of disk assessment is moderately reduced (35- 39%) . All of the LV segments are moderately hypokinetic . Grade 2 diastolic dysfunction (moderately increased LA pressure). Left Atrium LA size is severely enlarged . Right Ventricle The right ventricular chamber size and systolic function are normal. Right Atrium RA cavity size is normal . Aortic Valve The aortic valve is not well visualized. Probably trileaflet aortic valve. There is aorticvalve sclerosis without evidence of stenosis. Mild aortic regurgitation. Mitral Valve Mild mitral annular calcification. Mild MV leaflet thickening. No evidence of mitral stenosis. Trace mitral regurgitation. Tricuspid Valve TV structure is normal. A trace of tricuspid regurgitation. Unable to estimate peak systolic PA pressure; inadequate TR velocity signal. Pulmonic Valve PV is not well visualized; function appears normal by Doppler visualized. Aorta Aortic root size (SInus of Valsalva diameter) is normal . Proximal ascending aorta is normal . Pericardium No pericardial effusion is visualized. IV C/SVC/PA/PV/Pleural The IVC is <2.1cm and <50% collapsible suggestive of RAP of 8 mm Hg.Chambers/Structures Left Atrium LA Volume: 109.23 ml LA Vol. Index: 57 ml/m^2 Left Ventricle LVIDd: 6.07 cmLVEDV:141.86 ml LVIDs: 4.68 cm LV Septum Diastolic: 1.11 cm LV Septum Systolic: 0.91 cm LV Length: 8.77 cm LV PW Diastolic: 1.04 cm LV FS: 22.9 % LV PW Systolic: 1.55 cm LVEDV Downs's:165.3 ml LVEDVI: 87 ml/m^2 LVESV Downs's:100.81 ml LVESVI: 53 ml/m^2 LVEF Downs's: 39 % LVOT Diameter: 2.03 cm Right Atrium RA Vol. (Sngl Plane): 40.22 ml Right Ventricle RV Diast Dim.: 4 cm RVOT VTI: 12.16 cmAorta Ao Root S of Rosangela.: 3.32 cm Ascending Aorta: 3.65 cmDoppler/Quantitative Measurements Mitral Valve MV Peak E-Wave: 1.13 m/s MV Peak A-Wave: 1.39 m/s E/A Ratio: 0.81 Mean Velocity: 0.91 m/s Peak Gradient: 5.11 mmHg Mean Gradient: 4.08 mmHg Deceleration Time: 150.9 msec Area (continuity): 3.05 cm^2 MVVTI: 23.15 cm MV Evette. Peak: 1.57 m/s Aortic Valve Peak Velocity: 1.93 m/s Mean Velocity: 1.43 m/s Peak Gradient: 14.83 mmHg Mean Gradient: 8.95 mmHg AV Area (continuity): 2.03 cm^2 AV VTI: 34.77 cm AR P 1/2t: 193.4 msec Deceleration Time: 667 msec AV DVI: 0.63 LVOT Peak Velocity: 1.18 m/s Peak Gradient: 5.66 mmHg Mean Velocity: 0.86 m/s Mean Gradient: 3.28 mmHg LVOT Diameter: 2.03 cm LVOT VTI: 21.8 cmLVOT Area: 3.24 cm^2 LVOT SV:70.52 ml LVOT CO: 6.49 l/min LVOT CI: 3.42 l/min/m^2 Pulmonic Valve Peak Velocity: 0.85 m/s Peak Gradient: 2.89 mmHgKaiser Oakland Medical CenterHEMOGLOBIN A1C 2023-06-14 09:26:42 Test Item Value Reference Range Interpretation Comments HEMOGLOBIN A1C 6.7 % See_Comment H [Automated m essage] ELECTROPHORESIS (Viewbix) The system which (test code = 3811) generated this result transmitted ref erence range: <=5.6%. The reference range was not used to int erpret this result as normal/abnormal . "The A1c is measured using a NGSP-certified method. HbA1c value equal to or greater than 6.5% as thediagnosis cutoff for diabetes. An HbA1c value of 5.7- 6.4% indicates increased risk for diabetes (prediabetes)."[employer] Accessory Installer ID - ADMOperator ID - ADMECG 12 [id number] 09:06:12Ventricular Rate 97 BPMAtrial Rate 97 BPMP-R Interval 146 msQRS Duration 96 msQ-T Interval 378 msQTC Calculation(Bazett) 480 msP [place] 68 degreesR [place] 107 degreesT [place] 18 degrees Suspect arm lead reversal, interpretation assumes no reversalNormal sinus rhythmRightward axisNonspecific T wave abnormalityAbnormal ECGWhen compared with ECG of 30-MAR-2023 13:06,QRS axis Shifted rightConfirmed by Luis Lopez ([id number]) on 06/14/2023 9:06:07 [facility] 2023-06-14 04:48:18 Test Item Value Reference Range Interpretation Comments SODIUM (BEAKER) 138 meq/L 136-145 (test code = 381) POTASSIUM 4.1 meq/L 3.5-5.1 (BEAKER) (test code = 379) CHLORIDE (BEAKER) 106 meq/L 98-107 (test code = 382) CO2 (BEAKER) 19 meq/L 22-29 L (test code = 355) BLOOD UREA 7 mg/dL 7-21 NITROGEN (BEAKER) (test code = 354) CREATININE 0.66 mg/dL 0.57-1.25 (BEAKER) (test code = 358) GLUCOSE RANDOM 117 mg/dL 70-105 H (BEAKER) (test code = 652) CALCIUM (BEAKER) 8.6 mg/dL 8.4-10.2 (test code = 697) EGFR (BEAKER) 106 Interpretatio n of eGFR (test code = [...] not appl icable for dialysis patien ts [employer] Accessory Installer ID - ADMINCBC (HEMOGRAM ONLY)2023-06-14 04:22:50 Test Item Value Reference Range Interpretation Comments WHITE BLOOD CELL COUNT (BEAKER) 11.6 K/ L 3.5-10.5 H (test code = 775) RED BLOOD CELL COUNT (BEAKER) 3.20 M/ L 3.93-5.22 L (test code = 761) HEMOGLOBIN (BEAKER) (test code = 9.2 GM/DL 11.2-15.7 L 410) HEMATOCRIT (BEAKER) (test code = 29.1 % 34.1-44.9 L 411) MEAN CORPUSCULAR VOLUME (BEAKER) 91 fL 79-95 (test code = 753) MEAN CORPUSCULAR HEMOGLOBIN 28.8 pg 25.6-32.2 (BEAKER) (test code = 751) MEAN CORPUSCULAR HEMOGLOBIN CONC 31.6 GM/DL 32.2-35.5 L (BEAKER) (test code = 752) RED CELL DISTRIBUTION WIDTH 16.6 % 11.7-14.4 H (BEAKER) (test code = 412) PLATELET COUNT (BEAKER) (test 460 K/CU MM 150-450 H code = 756) MEAN PLATELET VOLUME (BEAKER) 8.8 fL 9.4-12.3 L (test code = 754) NUCLEATED RED BLOOD CELLS 0 /100 WBC 0-0 (BEAKER) (test code = 413) Strep pneumoniae [id number] 23:34:41 Test Item Value Reference Range Interpretation Comments Strep pneumoniae Presumptive negative Presumptive Antigen (test code = [place] [address]-5) pneumonia - see pneumococcal comment pneumonia - see comment, Presumptive negative for pneumococcal meningitis - see comment LYNDSAY (test code = LYNDSAY) Presumptive negative for pneumococcal pneumonia, suggesting no current or recent pneumococcal infection. Infection due to S. pneumoniae cannot be ruled out since the antigen present in the sample may be below the detection limit of the test. Lab Interpretation Normal (test code = 28049-5) [facility] [id number] 23:34:41 Test Item Value Reference Range Interpretation Comments STREP PNEUMONIAE Presumptive negative Presumptive negative ANTIGEN (BEAKER) for pneumococcal for pneumococcal (test code = 1615) pneumonia - see pneumonia - see comment commen Presumptive negative for pneumococcal pneumonia, suggesting no current or recent pneumococcal infection. Infection due to S. pneumoniae cannot be ruled out since the antigen present in the sample may be below the detection limit of the test. Legionella antigen, [id number] 23:29:07 Test Item Value Reference Range Interpretation Comments Legionella Urine Negative - see Negative Negative for L. Antigen (test code = comment pneumop sree 29066-6) serogroup 1 antigen, sugges ting no recent or current infecti on with this serogroup. Legionellosis cannot be ruled out since other serogroups and species may cau se disease. Lab Interpretation Normal (test code = 11174-6) [facility] CenterLEGIONELLA ANTIGEN, [id number] 23:29:07 Test Item Value Reference Range Interpretation Comments L. PNEUMOPHILA Negative - see Negative Negative fo r L. SEROGP 1 UR AG comment pneumophila (BEAKER) (test code serogrou p 1 antigen, = 1156) suggesting no r ecent or current infe ction with this serog roup. Legionellosis c annot be ruled out si nce other serogroup s and species may cau se disease. Venous doppler arm, [id number] 20:05:32PV LAB - Upper Extremities Veins Demographics Patient Name YUE LAWS Date of Study 06/13/2023SRINIVASAE Age 53 Visit Number [id number] Gender Female Accession Number [id number] Date of 1970 Referring Cara Burgess Room Number 1055 Physician Cage Fighter Lisa Ruiz Interpreting John Solorio, Physician FellowProcedureType of Study: Veins: Upper Extremities Veins, VENOUS DOPPLER ARM, LEFT.Indications for Study:Left arm pain .Patient Status:MICHAEL.Study Location:Portable.Technical Quality:Adequate visualization. - Results were reported to:Lina CAMPOS@16:50 pm .Risk FactorsHistory of Disease+ + + --+!Diagnosis !Date !Comments !+ + + ----+!History/Risk Factors: !03/30/2023!CHF, CVA, HTN. !+ +------ ----+ +ImpressionsLeft Impression1. There is no deep venous obstruction in the jugular, subclavian, axillary,brachial, radial or ulnar veins.2. There is total echolucent superficial venous obstruction in the basilicvein and cephalic vein in the proximal forearm. Conclusions Summary Venous duplex imaging and compression of the left upper extremity was performed. The veins were adequately visualized. The left deep venous system was patent and compressible with no evidence of thrombus. The left superficial venous system was positive with acute thrombus. Signature Velocities are measured in cm/s ; Diameters are measured in [facility]HIV[facility] ANTIGEN WITH HIV-1/2 [id number] 18:36:40 Test Item Value Reference Range Interpretation Comments HIV-1 ANTIGEN WITH HIV 1\\T\\2 Nonreactive Nonreactive ANTIBODY (2) (LATOYA) (test code = 2586) MR lumbar spine without & with IV [id number] 14:53:29MR LUMBAR SPINE WITH & WITHOUT IV CONTRAST INDICATION: Lumbar radiculopathy, prior surgery, new symptoms COMPARISON: 03/30/2023 TECHNIQUE: Multiplanar, multisequence MR images of the lumbar spine withand without contrast. FINDINGS: Numbering: Last fully formed disc space is designated L5-S1. Spinalcord: The conus medullaris is normal is size, signal intensity,and position, terminating at the L1 level. Reduced cauda equinaredundancy above the L3-4 level. Osseous structures: Status post laminectomy at L3-4. Stable osseousalignment and scattered marrow degenerative changes without evidence ofacuteosseous fracture. Discs: Disc space narrowing most pronounced at L3-4 and L4-5. Evaluation of the individual levels demonstrates: L1/L2: No disc herniation, spinal canal stenosis, or neural foraminalnarrowing. L2/L3: Disc bulge, moderate central spinal canal stenosis, mildbilateral neural foraminal stenosis. L3/L4: Disc bulge with bilateral subarticular recess encroachment,laminectomy with patent canal but dorsal fluid collection and facethypertrophy contributes to subarachnoid space effacement withmoderatecrowding of the cauda equina. Moderate to severe left and moderate rightneural foraminal stenosis. L4/L5: Laminectomy, diffuse disc bulge with subarticular recessencroachment but patent canal. Moderate to severe bilateral neuralforaminal stenosis. L5/S1: Disc bulge, facet arthropathy, mild to moderate bilateral neuralforaminal stenosis without significant central spinal canal stenosis. Paraspinal soft tissues: L3-4 laminectomy contains T2 hyperintense fluidmeasuring 3.3 x 1.7 x 1.7 cm. Dorsal paraspinal musculature F1swhuihkrkjmyjn. Postcontrast imaging demonstrates mild peripheralenhancement of the dorsal paraspinal fluid collection. Left adrenalgland 2.9 cm nodule.[facility] CenterMR LUMBAR SPINE WITH & WITHOUT IV [id number] 14:53:29[facility] 1970 Sex: FMR LUMBAR SPINE WITH & WITHOUT IV CONTRASTINDICATION: Lumbar radiculopathy, prior surgery, new symptomsCOMPARISON: 03/30/2023TECHNIQUE: Multiplanar, multisequence MR images of the lumbar spine withand without contrast. FINDINGS: Numbering: Last fully formed disc space is designated L5-S1.Spinal cord: The conus medullaris is normal is size, signal intensity,and position, terminating at the L1 level. Reduced cauda equinaredundancy above the L3-4 level.Osseous structures: Status post laminectomy at L3-4. Stable osseousalignment and scattered marrow degenerative changes without evidence ofacute osseous fracture.Discs: Disc space narrowing most pronounced at L3-4 and L4-5.Evaluation of the individuallevels demonstrates:L1/L2: No disc herniation, spinal canal stenosis, or neural foraminalnarrowing.L2/L3: Disc bulge, moderate central spinal canal stenosis, mildbilateral neural foraminal stenosis.L3/L4: Disc bulge with bilateral subarticular recess encroachment,laminectomy with patent canal but dorsal fluid collection and facethypertrophy contributes to subarachnoid space effacement with moderatecrowding of the cauda equina. Moderate to severe left and moderate rightneural foraminal stenosis.L4/L5: Laminectomy, diffuse disc bulge with subarticular recessencroachment but patent canal. Moderate to severe bilateral neuralforaminal stenosis.L5/S1: Disc bulge, facet arthropathy, mild to moderate bilateral neuralforaminal stenosis without significant central spinal canal stenosis.Paraspinal soft tissues: L3-4 laminectomy contains T2 hyperintense fluidmeasuring 3.3 x 1.7 x 1.7 cm. Dorsal paraspinal musculature X2eaqwsxbxaywklg. Postcontrast imaging demonstrates mild peripheralenhancement of the dorsal paraspinal fluid collection. Left adrenalgland 2.9 cm nodule.IMPRESSION:L3-4 laminectomy with 3.3 x 1.7 x 1.7 cm fluid collection within thelaminectomy defect suggestive of a postoperative seroma butsterility ofthe collection is not assessed and abscess or pseudomeningocele may havea similar appearance. Paraspinal marginal enhancement likely granulationtissue or fibrosis.L2-3 through L4-5 disc herniations with multilevel neural foraminalstenosis similar to prior exam.Left adrenal gland 2.1 cm indeterminate nodule can be further assessedby adrenal protocol CT or MRI abdomen imaging.ElectronicallySigned By: Ryan Buckley06/13/2023 14:55 CDTWorkstation Name: [id number] KINASE (CK)2023-06-13 11:54:02 Test Item Value Reference Range Interpretation Comments CREATINE KINASE TOTAL (BEAKER) (test 43 U/L 29-200 code = 380) [employer] Accessory Installer ID - ADMINCOMPREHENSIVE METABOLIC [id number] 06:48:22 Test Item Value Reference Range Interpretation Comments TOTAL PROTEIN 6.5 gm/dL 6.0-8.3 (BEAKER) (test code = 770) ALBUMIN (BEAKER) 3.1 g/dL 3.5-5.0 L (test code = 1145) ALKALINE 87 U/L 40-150 PHOSPHATASE (BEAKER) (test code = 346) BILIRUBIN TOTAL 0.4 mg/dL 0.2-1.2 (BEAKER) (test code = 377) SODIUM (BEAKER) 140 meq/L 136-145 (test code = 381) POTASSIUM (BEAKER) 3.5 meq/L 3.5-5.1 (test code = 379) CHLORIDE (BEAKER) 106 meq/L 98-107 (test code = 382) CO2 (BEAKER) (test 22 meq/L 22-29 code = 355) BLOOD UREA 8 mg/dL 7-21 NITROGEN (BEAKER) (test code = 354) CREATININE 0.61 mg/dL 0.57-1.25 (BEAKER) (test code = 358) GLUCOSE RANDOM 86 mg/dL 70-105 (BEAKER) (test code = 652) CALCIUM (BEAKER) 8.3 mg/dL 8.4-10.2 L (test code = 697) AST (SGOT) 14 U/L 5-34 (BEAKER) (test code = 353) ALT (SGPT) 10 U/L 6-55 (BEAKER) (test code = 347) EGFR (BEAKER) 108 Interpretatio n of eGFR (test code = [...] not appl icable for dialysis patien ts [employer] Accessory Installer ID - ADMINPROTHROMBIN TIME/[id number] 06:40:01 Test Item Value Reference Range Interpretation Comments PROTIME (BEAKER) (test code = 15.0 seconds 11.9-14.2 H 759) INR (BEAKER) (test code = 370) 1.17 <=5.90 RECOMMENDED COUMADIN/WARFARIN INR THERAPY RANGESSTANDARD DOSE: 2.0 - 3.0 Includes: PROPHYLAXIS for venous thrombosis, systemic embolization; TREATMENT for venous thrombosis and/or pulmonary embolus.HIGH RISK: Target INR is 2.5-3.5 for patients with mechanical heart valves.CBC W/PLT COUNT & AUTO [id number] 06:25:35 Test Item Value Reference Range Interpretation Comments WHITE BLOOD CELL COUNT (BEAKER) 10.7 K/ L 3.5-10.5 H (test code = 775) RED BLOOD CELL COUNT (BEAKER) 3.10 M/ L 3.93-5.22 L (test code = 761) HEMOGLOBIN (BEAKER) (test code = 8.8 GM/DL 11.2-15.7 L 410) HEMATOCRIT (BEAKER) (test code = 28.1 % 34.1-44.9 L 411) MEAN CORPUSCULAR VOLUME (BEAKER) 91 fL 79-95 (test code = 753) MEAN CORPUSCULAR HEMOGLOBIN 28.4 pg 25.6-32.2 (BEAKER) (test code = 751) MEAN CORPUSCULAR HEMOGLOBIN CONC 31.3 GM/DL 32.2-35.5 L (BEAKER) (test code = 752) RED CELL DISTRIBUTION WIDTH 16.6 % 11.7-14.4 H (BEAKER) (test code = 412) PLATELET COUNT (BEAKER) (test 460 K/CU MM 150-450 H code = 756) MEAN PLATELET VOLUME (BEAKER) 8.9 fL 9.4-12.3 L (test code = 754) NUCLEATED RED BLOOD CELLS 0 /100 WBC 0-0 (BEAKER) (test code = 413) NEUTROPHILS RELATIVE PERCENT 69 % (BEAKER) (test code = 429) LYMPHOCYTES RELATIVE PERCENT 19 % (BEAKER) (test code = 430) MONOCYTES RELATIVE PERCENT 8 % (BEAKER) (test code = 431) EOSINOPHILS RELATIVE PERCENT 2 % (BEAKER) (test code = 432) BASOPHILS RELATIVE PERCENT 0 % (BEAKER) (test code = 437) NEUTROPHILS ABSOLUTE COUNT 7.35 K/ L 1.56-6.13 H (BEAKER) (test code = 670) LYMPHOCYTES ABSOLUTE COUNT 2.03 K/ L 1.18-3.74 (BEAKER) (test code = 414) MONOCYTES ABSOLUTE COUNT (BEAKER) 0.90 K/ L 0.24-0.36 H (test code = 415) EOSINOPHILS ABSOLUTE COUNT 0.19 K/ L 0.04-0.36 (BEAKER) (test code = 416) BASOPHILS ABSOLUTE COUNT (BEAKER) 0.03 K/ L 0.01-0.08 (test code = 417) IMMATURE GRANULOCYTES-RELATIVE 1.70 % 0.00-1.00 H PERCENT (BEAKER) (test code = 2801) [id number] 05:26:09 Test Item Value Reference Range Interpretation Comments MAGNESIUM (BEAKER) (test code = 2.0 mg/dL 1.6-2.6 627) Autom[employer] Accessory Installer ID - [id number] 05:26:09 Test Item Value Reference Range Interpretation Comments PHOSPHORUS (BEAKER) (test code = 3.5 mg/dL 2.3-4.7 604) [employer] Accessory Installer ID - ADMINBASIC METABOLIC [id number] 05:26:08 Test Item Value Reference Range Interpretation [...] not appl icable for dialysis patien ts [employer] Accessory Installer ID - ADMINCBC W/PLT COUNT & AUTO [id number] 05:11:15 Test Item Value Reference Range Interpretation [...] code = 2801) XR spine lumbar 1 [id number] 10:32:20XR SPINE LUMBAR 1 VIEW CLINICAL INDICATION: L3-4 LAMINECTOMY COMPARISON: NoneK[facility] CenterXR SPINE LUMBAR 1 [id number] 10:32:20 [facility] 1970 Sex: FXR SPINE LUMBAR 1 VIEWCLINICAL INDICATION: L3-4 LAMINECTOMYCOMPARISON: NoneIMPRESSION:A single lateral view of the lumbar spine is obtained intraoperatively.The posterior approach surgical instrument isseen at the L3-L4 level,inferior to the L3 spinous process. Results were communicated to , whoconcurred with the above findings. Electronically Signed By: Maxim Ramos08/01/2022 10:34 CDTWorkstation Name: [id number] SPINE LUMBAR 1 [id number] 10:29:18 [facility] : 1970 Sex: FCLINICAL HISTORY: L3-4 LAMINECTOMYTECHNIQUE: Single view of the lumbar spine.COMPARISON: NoneFINDINGS: A spinal needle overlies the L3 spinous process.Moderate spondylosis and facet arthropathy are present within the spine.Moderate to severe disc space narrowing at L4-L5. The vertebral body heights aremaintained without fracture ordislocation. Scattered atherosclerotic vascular calcifications.IMPRESSION:A spinal needle overlies the L3 spinous process.Electronically Signed By: Maxim Jean Baptisteip108/01/2022 10:31 CDTWorkstation Name: [id number] Screen, [id number] 05:32:52 Test Item Value Reference Range Interpretation Comments Preg Test, Ur (test code = 2112-1) Negative Negative Lab Interpretation (test code = Normal 61504-7) [facility] CenterPregnancy Screen, [id number] 05:32:52 Test Item Value Reference Range Interpretation Comments Preg Test, Ur (test code = 2112-1) Negative Negative Lab Interpretation (test code = Normal 28295-1) [facility] CenterPreancy Screen, [id number] 05:32:52 Test Item Value Reference Range Interpretation Comments Preg Test, Ur (test code = 2112-1) Negative Negative Lab Interpretation (test code = Normal 72984-5) [facility] CenterPregnancy Screen, [id number] 05:32:52 Test Item Value Reference Range Interpretation Comments Preg Test, Ur (test code = 2112-1) Negative Negative Lab Interpretation (test code = Normal 83683-3) [facility] CenterPREGNANCY SCREEN, [id number] 05:32:52 Test Item Value Reference Range Interpretation Comments TEST URINE (BEAKER) (test Negative Negative code = 583) BASIC METABOLIC [id number] 23:30:54 Test Item Value Reference Range Interpretation [...] eGFR (test code = mL/min/1.73 values Stage D escription 1092) sq m Result G1 Komal l [...] not appl icable for dialysis patien ts [employer] Accessory Installer ID - ADMINPT/[id number] 23:15:33 Test Item Value Reference Range Interpretation [...] mechanical heart valves.CBC W/PLT COUNT & AUTO [id number] 23:13:01 Test Item Value Reference Range Interpretation [...] 2801) CT neck soft tissue without IV [id number] 13:45:22EXAM: CT NECK SOFT TISSUE WITHOUT IV [...] Postoperative changes from anterior cervical discectomy fusionat C3-M6Lkypffho Lung Apices: NormalCHI [facility] Medical CenterCT NECK SOFT TISSUE WITHOUT IV [id number] 13:45:22 [facility] : 1970 Sex: FEXAM: [...] Postoperative changes from anterior cervical discectomy fusionat C3-S2Vkakmqha Lung Apices: NormalIMPRESSION:Exam limited by lack of intravenous contrast.1. 1.8 x 2.9 x 1.3 cm ill-defined fluid collection in the leftanterolateral neck soft tissues, suggesting evolving postoperativehemorrhage. Superimposed infection is not excluded.2. Retropharyngeal fluid and air measuring up to 0.8 cm in thickness,favored to be present postoperative right frontal edema. Superimposedinfection is not excluded.3. Postoperative changes from ACDF at C3-F6Xmwdborwafsiki Signed By: Maxim Ramos07/31/2022 13:47 CDTWorkstation Name: [id number] METABOLIC [id number] 08:13:13 Test Item Value Reference Range Interpretation [...] not appl icable for dialysis patien ts Autom[employer] Accessory Installer ID - BVCBC W/PLT COUNT & AUTO [id number] 07:46:31 Test Item Value Reference Range Interpretation [...] 2801) XR spine cervical 2 or 3 [id number] 20:24:23TECHNIQUE: Frontal and lateral views of the cervical spine. INDICATION: Postop Standing Films. COMPARISON: None.[facility] CenterXR SPINE CERVICAL 2 OR 3 [id number] 20:24:23[facility] : 1970 Sex: FTECHNIQUE: Frontal and lateral [...] Signed By: Zachariah Garcia05/28/2023 20:26 CDTWorkstation Name: [id number] fluoro non-specific up to 1 [id number] 11:45:16This is a non-reportable study with no Radiologist dictation. Please refer to your PACS to review images, or Doc Flowsheets for documentation on studies without images.[facility] CenterFL FLUORO NON-SPECIFIC UP TO 1 [id number] 11:45:16 [facility] : 1970 Sex: FThis is a non- reportable study with no Radiologist dictation. Please refer to your PACS to review images, or Doc Flowsheets for documentation on studies without images.FL FLUORO NON-SPECIFIC UP TO 1 [id number] 10:13:02 [facility] : 1970 Sex: FTECHNIQUE: 1 lateral fluoroscopic image of the cervical spine forlocalization.Fluoroscopic time: 3 second(s).FINDINGS:The surgical pointer is at C3-C4.The findings were discussed with Dr. Garcia in the OR who concurred withthe findings.IMPRESSION:Intraoperative localization plain film as described above.El ectronically Signed By: Derik Reyez05/28/2023 10:15 CDTWorkstation Name: [id number], QUANTITATIVE, [id number] 08:21:03 Test Item Value Reference Range Interpretation Comments GONADOTROPIN, CHORIONIC (HCG) QUANT < mIU/mL 0-10 (BEAKER) (test code = 649) Non- Females: <10 mIU/mL Females: Gestation Age Reference Range(mIU/mL) 0.2-1 Week 5-50 1-2 Weeks 50-500 2-3 Weeks 100-5,000 3-4 Weeks 500-10,000 4-5 Weeks 1,000-50,000 5-6 Weeks 10,000-100,000 6-8 Weeks 15,000- 200,000 2-3 Months 10,000-100,000 Automotive Accessory Installer ID - ADMINCULTURE, [id number] 09:28:30SPECIMEN NUMBER: [id number] CULTURE, URINE SPECIMEN NUMBER: [id number] SPECIMEN COMMENT: URINE SOURCE:URINE REPORT STATUS: FINAL FINAL REPORT: 05/15/2023 >100,000 CFU/ML UROGENITAL REBEL PRESENT NO COMMON PATHOGENS UNLESS OTHERWISE INDICATED, ALL TESTING PERFORMED AT [facility] [address] [place] [address] BENCH WORKER HELPER: David DUMONTIA NUMBER [id number] [place]. [id number], [id number] 12:02:50SPECIMEN NUMBER: [id number] CULTURE, URINE SPECIMEN NUMBER: [id number] SOURCE: URINE REPORT STATUS: FINAL FINAL REPORT: 05/13/2023 NO SPECIMEN RECEIVED FOR TESTING. CHARGES DELETED.BASIC METABOLIC [id number] 04:48:43 Test Item Value Reference Range Interpretation Comments GLUCOSE (test code = 2217) 117 MG/DL 70-99 H BUN (test code = 2208) 20 MG/DL 6-20 CREATININE (test code = 2214) 0.83 MG/DL 0.60-1.30 eGFR (2020 CKD-EPI) (test code 85 ML/MIN/1.73 >60 = 07794) SODIUM (test code = 2231) 141 MEQ/L 133-146 POTASSIUM (test code = 2228) 3.6 MEQ/L 3.5-5.4 CHLORIDE (test code = 2215) 97 MEQ/L 95-107 CARBON DIOXIDE (test code = 26 MEQ/L -2205) CALCIUM (test code = 2209) 10.4 MG/DL 8.5-10.5 PROTHROMBIN TIME (PT)2023-05-09 02:52:41 Test Item Value Reference Range Interpretation Comments PROTHROMBIN TIME 12.7 SECONDS 12.5-14.7 (PT) (test code = 1402) INR (test code = 0.9 SEE BELOW CURRENT 81661) RECOMMENDATIONS ARE FOR AN INR OF 2 .0-3.0 FOR ALL PATIENT S ON VITAMIN K ANTAG ONISTS, EXCEPT THOSE WI TH PROSTHETIC HEAR T VALVES, FOR WHO M INR OF 2.5-3.5 IS RECOMMENDED. UN LESS OTHERWISE INDIC ATED, ALL TESTING PER FORMED AT [facility] [address] [place] [address] SANDRA ORR DIRECTOR: GERARD STEINER M.D. C HANNAH NUMBER [id number] CAP ACCREDITATION N O. [id number] CBC W/AUTO DIFF WITH [id number] 01:54:17 Test Item Value Reference Range Interpretation [...] RBCS 0.00 K/UL 0.00-0.11 (test code = 99142) ECG 12 [id number] 14:02:48Ventricular Rate 102 BPMAtrial Rate 102 BPMP-R Interval 146 msQRS Duration 90 msQ-T Interval 372 msQTC Calculation(Bazett) 484 msP [place] 11 degreesR [place] -53 degreesT [place] 29 degrees Sinus tachycardiaPossible Left atrial enlargementLeft axis deviationPoor R wave progression Cannot rule out Anterior infarct , age undetermined vs lead misplacementNonspecific T wave abnormalityProlonged QTAbnormal ECGNo previous ECGs availableConfirmed by David GARCIA BASANT ([id number]) on 04/06/2023 2:02:46 [facility] HospitalE[facility] CONTRAST & [id number] 13:11:39Transthoracic Echocardiography Report (TTE) Demographics Patient Name YUE LAWS Date of Study03/31/2023 ESTELLE Gender Female Visit Number [id number] Race Room Number 2227 Number Date of 1970 Referring Physician Mariah Aldridge MD Age 53 year(s) Cage Fighter Wilmer Francois Candy Maker Helper Josefina Corbett, [facility] Interpreting Physician Melody MDProcedure Type of Study [...] annular calcification. Trace mitral regurgitation. Tricuspid Valve The tricuspid valve is not well visualized. A trace of tricuspid regurgitation. Estimated peak systolicPA pressure is 30-35 mmHg (normal range) . Peak systolic pressure may be underestimated; partial TR signal. Pulmonic Valve PV is not well visualized; function appears normal by Doppler visualized. Aorta Aortic root size (Sinus of Valsalva diameter) is normal . Pericardium No pericardial effusion is visualized. IVC/SVC/PA/PV/Pleural The estimated RA pressure by IVC dynamics 0-5mmHg .Chambers/Structures Left Atrium LA Volume: 79.75 ml LA Area: [...] AV VTI: 25.77 cm AR P1/2t: 343.7 msec Deceleration Time: 1185.1 msec AV DVI: 0.78 LVOT Peak Velocity: 1.12 m/s Peak Gradient: 5.06 mmHg M artis Velocity: 0.74 m/s Mean Gradient: 2.54 mmHg LVOT Diameter: 2.19 cm LVOT VTI: 20.18 cm LVOT Area:3.77 cm^2 LVOT SV:75.98 ml LVOT CO: 5.7 l/min LVOT CI: 2.97 l/min/m^2 Tricuspid Valve TR Velocity: 2.73 m/s TR Gradient: 29.86 mmHg Pulmonic Valve Peak Velocity: 0.74 m/s Peak Gradient: 2.22 mmHgKaiser [facility] Medical CenterXR chest 1 view portable / [id number] 15:39:07TECHNIQUE: Frontal view of the chest. INDICATION: CHf. COMPARISON: None. FINDINGS: LINES/TUBES: None. HEART AND MEDIASTINUM: Cardiomediastinal contour is within normallimits. LUNGS: The lungs are well inflated and clear. No consolidation orpulmonary edema. PLEURA: No pneumothorax. No significant pleural effusion. SOFT TISSUES AND BONES: Cervical spinal fixation hardware is noted.[facility] CenterXR CHEST 1 VIEW PORTABLE / [id number] 15:39:07 [facility] : 1970 Sex: FTECHNIQUE: Frontal view of the chest.INDICATION: CHf.COMPARISON: None.FINDINGS:LINES/TUBES: None.HEART AND MEDIASTINUM: Cardiomediastinal contour is within normallimits. LUNGS: The lungs are well inflated and clear. No consolidation orpulmonary edema.PLEURA: No pneumothorax. No significant pleural effusion.SOFT TISSUES AND BONES: Cervical spinal fixation hardware is noted.IMPRESSION:No acute cardiopulm onary process.Electronically Signed By: Jose Carlos Lebron04/01/2023 15:41 CDTWorkstation Name: [id number] NATRIURETIC FACTOR (BNP)2023-04-01 14:15:07 Test Item Value Reference Range Interpretation Comments B-TYPE NATRIURETIC PEPTIDE (BEAKER) 192 pg/mL 0-100 H (test code = 700) Autom[employer] Accessory Installer ID - ADMINMR spine cervical without IV [id number] 11:30:35MRI cervical spine without contrast CLINICAL HISTORY: [...] and paraspinal soft tissues are within normal limits.[facility] CenterMR CERVICAL SPINE WITHOUT IV [id number] 11:30:35 [facility] : 1970 Sex: FMRI [...] Signed By: Maxim Sultana03/31/2023 11:32 CDTWorkstation Name: [id number] METABOLIC [id number] 04:43:14 Test Item Value Reference Range Interpretation [...] not appl icable for dialysis patien ts [employer] Access[employer] Installer ID - MADELINE WCBC (HEMOGRAM ONLY)2023-03-31 04:20:07 [...] (test code = 413) Arterial doppler legs [id number] 17:44:07PV LAB - Lower Extremity Arterial Duplex Demographics Patient Name YUE LAWS Date of Study 05/2023 ESTELLE Age 53 Visit Number [id number] Gender Female Accession Number [id number] Date of 1970 Referring Mraiah Aldridge, Room Number 2227 Physician Cage Fighter Yovana Akins Interpreting John Solorio, Physician FellowProcedureType of Study: Extremities Arteries: Lower Extremities Arterial Duplex, ARTERIAL DOPPLER LEGS, BILATERAL.Indications for Study:PVD.Patient Status:Routine.Study Location:Vascular Lab.Technical Quality:Adequate visualization.Risk FactorsHistory of Disease+ + + --+!Diagnosis !Date !Comments !+ + + +!Hi story/Risk Factors: !03/30/2023!CHF, CVA, HTN. !+ + +--- +ImpressionsRight Impression1. The common femoral, profunda femoral, superficial femoral, popliteal,posterior tibial, peroneal and anterior tibial arteries are patent withbiphasicand triphasic Doppler waveforms throughout.2. There was a <50% stenosis at the distal common femoral artery.3. The vessels have diffuse, calcified plaque.4. The digits are dusky and cool to the touch.Left Impression1. The common femoral, profunda femoral, superficial femoral, popliteal,posterior tibial, peroneal and anterior tibial arteries are patent withbiphasic and triphasic Doppler waveforms throughout.2. The vessels have diffuse, calcified plaque.3. The digits are dusky and cool to the touch. Conclusions Summary Arterial duplex was performed on the bilateral lower extremities. Adequate Doppler waveforms were obtained. Doppler waveforms were biphasic and triphasic bilaterally. There was a <50% stenosis in the right distal common femoral artery. There was diffuse calcified plaque througho ut, bilaterally. The bilateral digits had a dusky appearance and felt cool to the touch. Signature -- Velocities are measured in cm/s ; Diameters are measured in cmLE Duplex Measurements Right Left + + + + + + + + + + !Location ! !PSV !EDV !Waveform ! !PSV !EDV !Waveform ! + + + + + + +------ + + + !Mid Common Femoral ! !153 ! !Triphasic ! !153 ! !Triphasic ! + + + + + + + + + + !Prox PFA ! !60.5 ! !Triphasic ! !80.9 ! !Triphasic ! + + + + + + +---- + + + !Prox SFA ! !146 ! !Triphasic ! !140 ! !Triphasic ! + + + + + + + + + + !Mid SFA ! !150 ! !Triphasic ! !144 ! !Triphasic ! + + + + + + + ----+ + + !Dist SFA ! !106 ! [...] + + + + + + + +!Prox BAT PERSON ! !32 ! !Biphasic ! !60.9 ! !Triphasic ! + + + + + + + + + + !Mid BAT PERSON ! !25.9 ! !Biphasic ! !59.7 ! !Triphasic ! +--- + + + + + + + + + !Dist BAT PERSON ! !33.2 ! !Biphasic ! !37.4 ! !Biphasic ! + + + + + + + + + + !Prox KENDRA ! !56.2 ! !Biphasic ! !60.5 ! !Triphasic ! + + + + + + + + + + !Mid KENDRA ! !36.7 !!Biphasic ! !47.9 ! !Biphasic ! + + +-- + + + + + + + !Dist KENDRA ! !37.4 ! !Biphasic ! !58.1 ! !Biphasic ! + + + + + + + + + + !Prox Peroneal ! !32.4 ! !Triphasic ! !60.5 ! !Triphasic ! + + +----- + + + + + + + !Mid Peroneal ! !27.9 ! !Biphasic ! !39.8 ! !Triphasic ! + + + + + + + + + + !Dist Peroneal ! !31.6 ! !Biphasic ! !23.6 ! !Biphasic ! + + +---- + + + + + + +[facility](Ankle/Brachial Index)2023-03-30 17:13:47PV LAB - Lower Extremity Arterial Procedure Demographics Patient Name YUE LAWS Date of Study03/30/2023 ESTELLE Age 53 Visit Number [id number] Gender Female Accession Number [id number] of 1970 Referring Mariah Aldridge, Room Number 2227 Physician Cage Fighter Yovana Akins Interpreting John Solorio, Physician FellowProcedureType of Study: Extremities Arteries: Lower Extremity Arterial Procedure, ARTERIAL (ALEISHA'S W/DOPPLER) ONLY.Indications for Study:PVD.Patient Status:Routine.Study Location:Vascular Lab.Technical Quality:Adequate visualization.Risk FactorsHistory of Disease+ + + --+!Diagnosis !Date !Comments !+ + + + !History/Risk Factors: !03/30/2023!CHF, CVA, HTN. !+ + + +ImpressionsRight Impression1. The posterior tibial and dorsalis pedis arteries are patent withtriphasic Doppler waveforms.2. The PT pressure is 106 mmHg with an ALEISHA of .79 andthe DP pressure is 102mmHg with an ALEISHA of .76, within the moderate obstruction range.3. The digits do not have adequate flow by PPG waveforms. No TBI is obtainedLeft Impression1. The posterior tibial and dorsalis pedis arteries are patent withtriphasic Doppler waveforms.2. The PT pressure is 116 mmHg with an ALEISHA of .86 and the DP pressure is 121mmHg with an ALEISHA of .90, within the mild obstruction range.3. The digits do not have adequate flow by PPG waveforms. No TBI isobtained. Conclusions Summary Arterial pressures and Doppler waveforms were performed bilaterally. Adequate Doppler waveforms were obtained. Doppler waveforms were triphasic bilaterally. The right ALEISHA's were within the moderate obstruction range. The left ALIESHA's were within the mild obstruction range. The bilateral digits did not have adequate flow by PPG waveforms bilaterally. No TBI's were obtained. Signature Velocities are measured in cm/s ; Diameters are measured in [facility] thoracic spine without IV [id number] 12:50:50MR THORACIC SPINE WITHOUT IV CONTRAST INDICATION: [...] abnormality. T10-11 moderate right neural foraminal stenosis wdtT58-62 moderate bilateral foraminal stenosis due to facet hypertrophyand ligamentum flavum redundancy. Thoracic vertebrae maintain normal height. Mild multilevel degenerativedisc changes. No evidence of acute osseous fracture or traumaticmalalignment. No paraspinal mass. Conus medullaris terminates at L1. Redundant cauda equina partiallyimaged and further reported on MRI lumbar spine. [facility] IV [id number] 12:50:50[facility] : 1970 Sex: FMR [...] abnormality. T10-11 moderate right neural foraminal stenosis btqL92-30 moderate bilateral foraminal stenosis due to facet [...] Signed By: Ryan Buckley03/30/2023 12:52 CDTWorkstation Name: [id number] spine lumbar without IV [id number] 12:33:57MR LUMBAR SPINE WITHOUT IV CONTRAST INDICATION: Unlisted Reason for ExamConcern for cord compressionCOMPARISON: None TECHNIQUE: Multiplanar, multisequence MR images of the lumbar spinewithout contrast. FINDINGS: For the purposes of this dictation, the 5 lowermost bndxhm-tpgsdedrmqepo-kzad vertebral bodies are labeled L1-L5.Alignment of the [...] with mild to moderatebilateral neural foraminal stenosisCH[facility] CenterMR LUMBAR SPINE WITHOUT IV [id number] 12:33:57 [facility] : 1970 Sex: FMR LUMBAR SPINE WITHOUT IV CONTRASTINDICATION: Unlisted Reason for ExamConcern for cord compressionCOMPARISON: NoneTECHNIQUE: Multiplanar, multisequence MR images of the lumbar spinewithout contrast. FINDINGS: For the purposes of this dictation, the 5 lowermost ejwhke-rdrbqdropgwok-knuu vertebral bodies are labeled L1- L5.Alignment of the lumbar spine is within normal limits. Vertebral body height is maintained. Bone marrow edema is seen at the inferior L3 and superior L4 vertebralbodies and bilateralL4 pedicles, favored to be degenerative in nature.Suggestion of a synovial cyst at the right A94-H13hnuvp (series 301image eight).No spinal cord signal abnormality [...] flavum buckling versus synovial cyst at the tfvwxI13-P93 level (series 301 image eight). MRI thoracic spine can beconsidered for further evaluation.7. Mild clumping of the cauda equina nerve roots, which is nonspecificbut may represent arachnoiditis. Postcontrast imaging can be consideredfor further evaluation.Electronically Signed By: Maxmi Sultana03/30/2023 12:36 CDTWorkstation Name: [id number] 11:45:01 Test Item Value Reference Range Interpretation Comments HEMOGLOBIN A1C 5.7 % See_Comment H [Automated m essage] ELECTROPHORESIS (BEAKER) The system which (test code = 3811) generated this result transmitted ref erence range: <=5.6%. The reference range was not used to int erpret this result as normal/abnormal . "The A1c is measured using a NGSP-certified method. HbA1c value equal to or greater than 6.5% as thediagnosis cutoff for diabetes. An HbA1c value of 5.7- 6.4% indicates increased risk for diabetes (prediabetes)."[employer] Access[employer] Installer ID - ADMEEG AWAKE AND [id number] 09:57:53Steph Martinez MD 03/30/2023 9:59 AMELECTROENCEPHALOGRAM FOR [facility] EEG Type: Inpatient, outpatient, EMUDATE(s) OF EE03/30/23DATE OF REPORT: 03/30/23MRN: [id number] of : 1970EE-1454Start time: 08:36Stop time: 09:23ICD-10: R56.9 CPT Code: 27243 (awake and asleep) HISTORY: 53 y/o female [...] the possibility of epilepsy. If the clinical suspicionof epilepsy remains, consider additional EEG recordings. Steph Elias MD, MPHNeurophysiology/Epilepsy AttendingCH[facility] EEG AWAKE AND [id number] 09:57:53Gadarcy Martinez MD 03/30/2023 9:59 AMELECTROENCEPHALOGRAM FOR [facility] EEG Type: Inpatient, outpatient, EMUDATE(s) OF EE03/30/23DATE OF REPORT: 03/30/23MRN: [id number] of : 1970EE-1454Start time: 08:36Stop time: 09:23ICD-10: R56.9 CPT Code: 04674 (awake and asleep) HISTORY: 53 y/o female [...] the possibility of epilepsy. If the clinical suspicionof epilepsy remains, consider additional EEG recordings. Steph Elias MD, MPHNeurophysiology/Epilepsy AttendingCH[facility] VALPROIC ACID LEVEL, [id number] 09:42:31 Test Item Value Reference Range Interpretation Comments VALPROIC ACID TOTAL (BEAKER) (test 76 ug/mL 50-100 code = 924) Therapeutic range for some clinical conditions may be >100 ug/mLUrinalysis w/Microscopic + Reflex to [id number] 08:43:51 Test Item Value Reference Range Interpretation Comments Color, UA (test code Yellow = 5778-6) Clarity, UA (test Clear code = 5767-9) Specific [place], UA 1.033 1.001-1.035 (test code = 5811-5) pH, UA (test code = 6.0 5.0-8.0 5803-2) Protein, UA (test 30 mg/dL Negative A code = 83019-0) Glucose, UA (test Negative Negative code = 365) Ketones, UA (test Negative Negative code = 2514-8) Bilirubin, UA (test Negative Negative code = 60039-6) Blood, UA (test code Small Negative A = 02106-7) Nitrite, UA (test Negative Negative code = 5802-4) Leukocytes, UA (test Negative Negative code = 5799-2) Urobilinogen, UA 0.2 0.2-1.0 (test code = 40154-3) RBC, UA (test code = 51 See_Comment [Autom ated 81210-0) message] The system which generated this result [...] UA See_Comment [Automate d (test code = 08118-7) messag e] The system which generated this result transmitted reference range : /HPF. The reference range was not used to interpret this result as normal/abnormal . Specimen Source (test code = 2795) LYNDSAY (test code = LYNDSAY) [employer] Accessory Installer ID - [auto]Automotive Accessory Installer ID - tech Lab Interpretation Abnormal (test code = 18520-4) [facility]Micro[facility]opic + Reflex to Culture 2023-03-30 08:43:51 Test Item Value Reference Range Interpretation Comments Color, UA (test code Yellow = 5778-6) Clarity, UA (test Clear code = 5767-9) Specific [place], UA 1.033 1.001-1.035 (test code = 5811-5) pH, UA (test code = 6.0 5.0-8.0 5803-2) Protein, UA (test 30 mg/dL Negative A code = 85221-3) Glucose, UA (test Negative Negative code = 365) Ketones, UA (test Negative Negative code = 2514-8) Bilirubin, UA (test Negative Negative code = 69542-5) Blood, UA (test code Small Negative A = 33105-9) Nitrite, UA (test Negative Negative code = 5802-4) Leukocytes, UA (test Negative Negative code = 5799-2) Urobilinogen, UA 0.2 0.2-1.0 (test code = 59824-4) RBC, UA (test code = 51 See_Comment [Autom ated 33923-0) message] The system which generated this result [...] UA See_Comment [Automate d (test code = 52920-6) messag e] The system which generated this result transmitted reference range : /HPF. The reference range was not used to interpret this result as normal/abnormal . Specimen Source (test code = 2795) LYNDSAY (test code = LYNDSAY) [employer] Access[employer] Installer ID - [auto]Automotive Accessory Installer ID - tech Lab Interpretation Abnormal (test code = 65900-7) [facility]/Microscopic + Reflex to Culture 2023-03-30 08:43:51 Test Item Value Reference Range Interpretation Comments Color, UA (test code Yellow = 5778-6) Clarity, UA (test Clear code = 5767-9) Specific [place], UA 1.033 1.001-1.035 (test code = 5811-5) pH, UA (test code = 6.0 5.0-8.0 5803-2) Protein, UA (test 30 mg/dL Negative A code = 84327-5) Glucose, UA (test Negative Negative code = 365) Ketones, UA (test Negative Negative code = 2514-8) Bilirubin, UA (test Negative Negative code = 93512-0) Blood, UA (test code Small Negative A = 05060-0) Nitrite, UA (test Negative Negative code = 5802-4) Leukocytes, UA (test Negative Negative code = 5799-2) Urobilinogen, UA 0.2 0.2-1.0 (test code = 71917-2) RBC, UA (test code = 51 See_Comment [Autom ated 55147-7) message] The system which generated this result [...] UA See_Comment [Automate d (test code = 40774-7) messag e] The system which generated this result transmitted reference range : /HPF. The reference range was not used to interpret this result as normal/abnormal . Specimen Source (test code = 2795) LYNDSAY (test code = LYNDSAY) [employer] Accessory Installer ID - [auto]Automotive Accessory Installer ID - tech Lab Interpretation Abnormal (test code = 08592-6) [facility]Ur[facility] w/Microscopic + Reflex to Culture 2023-03-30 08:43:51 Test Item Value Reference Range Interpretation Comments Color, UA (test code Yellow = 5778-6) Clarity, UA (test Clear code = 5767-9) Specific [place], UA 1.033 1.001-1.035 (test code = 5811-5) pH, UA (test code = 6.0 5.0-8.0 5803-2) Protein, UA (test 30 mg/dL Negative A code = 24735-5) Glucose, UA (test Negative Negative code = 365) Ketones, UA (test Negative Negative code = 2514-8) Bilirubin, UA (test Negative Negative code = 80621-1) Blood, UA (test code Small Negative A = 97378-4) Nitrite, UA (test Negative Negative code = 5802-4) Leukocytes, UA (test Negative Negative code = 5799-2) Urobilinogen, UA 0.2 0.2-1.0 (test code = 73797-5) RBC, UA (test code = 51 See_Comment [Autom ated 24929-3) message] The system which generated this result [...] UA See_Comment [Automate d (test code = 24271-0) messag e] The system which generated this result transmitted reference range : /HPF. The reference range was not used to interpret this result as normal/abnormal . Specimen Source (test code = 2795) LYNDSAY (test code = LYNDSAY) [employer] Accessory Installer ID - [auto]Automotive Accessory Installer ID - tech Lab Interpretation Abnormal (test code = 60012-3) [facility]Ur[facility]/Microscopic + Reflex to Culture 2023-03-30 08:43:51 Test Item Value Reference Range Interpretation Comments Color, UA (test code Yellow = 5778-6) Clarity, UA (test Clear code = 5767-9) Specific [place], UA 1.033 1.001-1.035 (test code = 5811-5) pH, UA (test code = 6.0 5.0-8.0 5803-2) Protein, UA (test 30 mg/dL Negative A code = 73010-2) Glucose, UA (test Negative Negative code = 365) Ketones, UA (test Negative Negative code = 2514-8) Bilirubin, UA (test Negative Negative code = 52626-2) Blood, UA (test code Small Negative A = 34309-3) Nitrite, UA (test Negative Negative code = 5802-4) Leukocytes, UA (test Negative Negative code = 5799-2) Urobilinogen, UA 0.2 0.2-1.0 (test code = 78475-5) RBC, UA (test code = 51 See_Comment [Autom ated 64054-1) message] The system which generated this result [...] UA See_Comment [Automate d (test code = 56113-5) messag e] The system which generated this result transmitted reference range : /HPF. The reference range was not used to interpret this result as normal/abnormal . Specimen Source (test code = 2795) LYNDSAY (test code = LYNDSAY) Autom[employer] Accessory Installer ID - [auto]Automotive Accessory Installer ID - tech Lab Interpretation Abnormal (test code = 12740-1) [facility]/Microscopic + Reflex to Culture 2023-03-30 08:43:51 Test Item Value Reference Range Interpretation Comments Color, UA (test code Yellow = 5778-6) Clarity, UA (test Clear code = 5767-9) Specific [place], UA 1.033 1.001-1.035 (test code = 5811-5) pH, UA (test code = 6.0 5.0-8.0 5803-2) Protein, UA (test 30 mg/dL Negative A code = 27190-7) Glucose, UA (test Negative Negative code = 365) Ketones, UA (test Negative Negative code = 2514-8) Bilirubin, UA (test Negative Negative code = 67599-7) Blood, UA (test code Small Negative A = 69693-8) Nitrite, UA (test Negative Negative code = 5802-4) Leukocytes, UA (test Negative Negative code = 5799-2) Urobilinogen, UA 0.2 0.2-1.0 (test code = 83817-0) RBC, UA (test code = 51 See_Comment [Autom ated 14839-8) message] The system which generated this result [...] UA See_Comment [Automate d (test code = 98257-4) messag e] The system which generated this result transmitted reference range : /HPF. The reference range was not used to interpret this result as normal/abnormal . Specimen Source (test code = 2795) LYNDSAY (test code = LYNDSAY) [employer] Accessory Installer ID - [auto]Automotive Accessory Installer ID - tech Lab Interpretation Abnormal (test code = 88705-8) [facility]/Microscopic + Reflex to Culture 2023-03-30 08:43:51 Test Item Value Reference Range Interpretation Comments Color, UA (test code Yellow = 5778-6) Clarity, UA (test Clear code = 5767-9) Specific [place], UA 1.033 1.001-1.035 (test code = 5811-5) pH, UA (test code = 6.0 5.0-8.0 5803-2) Protein, UA (test 30 mg/dL Negative A code = 17679-0) Glucose, UA (test Negative Negative code = 365) Ketones, UA (test Negative Negative code = 2514-8) Bilirubin, UA (test Negative Negative code = 38680-8) Blood, UA (test code Small Negative A = 61065-2) Nitrite, UA (test Negative Negative code = 5802-4) Leukocytes, UA (test Negative Negative code = 5799-2) Urobilinogen, UA 0.2 0.2-1.0 (test code = 44790-8) RBC, UA (test code = 51 See_Comment [Autom ated 98455-6) message] The system which generated this result [...] UA See_Comment [Automate d (test code = 95198-2) messag e] The system which generated this result transmitted reference range : /HPF. The reference range was not used to interpret this result as normal/abnormal . Specimen Source (test code = 2795) LYNDSAY (test code = LYNDSAY) [employer] Accessory Installer ID - [auto]Automotive Accessory Installer ID - tech Lab Interpretation Abnormal (test code = 15087-6) [facility]Micro[facility]opic + Reflex to Culture 2023-03-30 08:43:51 Test Item Value Reference Range Interpretation Comments Color, UA (test code Yellow = 5778-6) Clarity, UA (test Clear code = 5767-9) Specific [place], UA 1.033 1.001-1.035 (test code = 5811-5) pH, UA (test code = 6.0 5.0-8.0 5803-2) Protein, UA (test 30 mg/dL Negative A code = 31042-8) Glucose, UA (test Negative Negative code = 365) Ketones, UA (test Negative Negative code = 2514-8) Bilirubin, UA (test Negative Negative code = 09812-4) Blood, UA (test code Small Negative A = 52639-9) Nitrite, UA (test Negative Negative code = 5802-4) Leukocytes, UA (test Negative Negative code = 5799-2) Urobilinogen, UA 0.2 0.2-1.0 (test code = 83713-8) RBC, UA (test code = 51 See_Comment [Autom ated 35053-5) message] The system which generated this result [...] UA See_Comment [Automate d (test code = 03834-6) messag e] The system which generated this result transmitted reference range : /HPF. The reference range was not used to interpret this result as normal/abnormal . Specimen Source (test code = 2795) LYNDSAY (test code = LYNDSAY) [employer] Accessory Installer ID - [auto]Automotive Accessory Installer ID - tech Lab Interpretation Abnormal (test code = 09057-3) [facility]opic + Reflex to Culture 2023-03-30 08:43:51 Test Item Value Reference Range Interpretation Comments Color, UA (test code Yellow = 5778-6) Clarity, UA (test Clear code = 5767-9) Specific [place], UA 1.033 1.001-1.035 (test code = 5811-5) pH, UA (test code = 6.0 5.0-8.0 5803-2) Protein, UA (test 30 mg/dL Negative A code = 79347-4) Glucose, UA (test Negative Negative code = 365) Ketones, UA (test Negative Negative code = 2514-8) Bilirubin, UA (test Negative Negative code = 55333-0) Blood, UA (test code Small Negative A = 10670-9) Nitrite, UA (test Negative Negative code = 5802-4) Leukocytes, UA (test Negative Negative code = 5799-2) Urobilinogen, UA 0.2 0.2-1.0 (test code = 67093-7) RBC, UA (test code = 51 See_Comment [Autom ated 95993-8) message] The system which generated this result [...] UA See_Comment [Automate d (test code = 45320-0) messag e] The system which generated this result transmitted reference range : /HPF. The reference range was not used to interpret this result as normal/abnormal . Specimen Source (test code = 2795) LYNDSAY (test code = LYNDSAY) [employer] Accessory Installer ID - [auto]Automotive Accessory Installer ID - tech Lab Interpretation Abnormal (test code = 86279-5) [facility] + Reflex to Culture 2023-03-30 08:43:51 Test Item Value Reference Range Interpretation Comments Color, UA (test code Yellow = 5778-6) Clarity, UA (test Clear code = 5767-9) Specific [place], UA 1.033 1.001-1.035 (test code = 5811-5) pH, UA (test code = 6.0 5.0-8.0 5803-2) Protein, UA (test 30 mg/dL Negative A code = 78618-0) Glucose, UA (test Negative Negative code = 365) Ketones, UA (test Negative Negative code = 2514-8) Bilirubin, UA (test Negative Negative code = 05367-5) Blood, UA (test code Small Negative A = 40112-8) Nitrite, UA (test Negative Negative code = 5802-4) Leukocytes, UA (test Negative Negative code = 5799-2) Urobilinogen, UA 0.2 0.2-1.0 (test code = 05533-7) RBC, UA (test code = 51 See_Comment [Autom ated 99293-1) message] The system which generated this result [...] UA See_Comment [Automate d (test code = 53531-7) messag e] The system which generated this result transmitted reference range : /HPF. The reference range was not used to interpret this result as normal/abnormal . Specimen Source (test code = 2795) LYNDSAY (test code = LYNDSAY) [employer] Accessory Installer ID - [auto]Automotive Accessory Installer ID - tech Lab Interpretation Abnormal (test code = 69326-4) [facility]Microscopic + Reflex to Culture 2023-03-30 08:43:51 Test Item Value Reference Range Interpretation Comments Color, UA (test code Yellow = 5778-6) Clarity, UA (test Clear code = 5767-9) Specific [place], UA 1.033 1.001-1.035 (test code = 5811-5) pH, UA (test code = 6.0 5.0-8.0 5803-2) Protein, UA (test 30 mg/dL Negative A code = 35643-7) Glucose, UA (test Negative Negative code = 365) Ketones, UA (test Negative Negative code = 2514-8) Bilirubin, UA (test Negative Negative code = 73905-5) Blood, UA (test code Small Negative A = 75531-9) Nitrite, UA (test Negative Negative code = 5802-4) Leukocytes, UA (test Negative Negative code = 5799-2) Urobilinogen, UA 0.2 0.2-1.0 (test code = 73280-8) RBC, UA (test code = 51 See_Comment [Autom ated 09924-2) message] The system which generated this result [...] UA See_Comment [Automate d (test code = 01646-4) messag e] The system which generated this result transmitted reference range : /HPF. The reference range was not used to interpret this result as normal/abnormal . Specimen Source (test code = 2795) LYNDSAY (test code = LYNDSAY) [employer] Accessory Installer ID - [auto]Automotive Accessory Installer ID - tech Lab Interpretation Abnormal (test code = 64010-8) [facility] + Reflex to Culture 2023-03-30 08:43:51 Test Item Value Reference Range Interpretation Comments Color, UA (test code Yellow = 5778-6) Clarity, UA (test Clear code = 5767-9) Specific [place], UA 1.033 1.001-1.035 (test code = 5811-5) pH, UA (test code = 6.0 5.0-8.0 5803-2) Protein, UA (test 30 mg/dL Negative A code = 98746-2) Glucose, UA (test Negative Negative code = 365) Ketones, UA (test Negative Negative code = 2514-8) Bilirubin, UA (test Negative Negative code = 85497-6) Blood, UA (test code Small Negative A = 88900-5) Nitrite, UA (test Negative Negative code = 5802-4) Leukocytes, UA (test Negative Negative code = 5799-2) Urobilinogen, UA 0.2 0.2-1.0 (test code = 20365-2) RBC, UA (test code = 51 See_Comment [Autom ated 09148-7) message] The system which generated this result [...] UA See_Comment [Automate d (test code = 96031-9) messag e] The system which generated this result transmitted reference range : /HPF. The reference range was not used to interpret this result as normal/abnormal . Specimen Source (test code = 2795) LYNDSAY (test code = LYNDSAY) [employer] Installer ID - [auto][employer] Accessory Installer ID - tech Lab Interpretation Abnormal (test code = 00911-1) [facility] 2023-03-30 08:43:51 Test Item Value Reference Range Interpretation Comments Color, UA (test code Yellow = 5778-6) Clarity, UA (test Clear code = 5767-9) Specific [place], UA 1.033 1.001-1.035 (test code = 5811-5) pH, UA (test code = 6.0 5.0-8.0 5803-2) Protein, UA (test 30 mg/dL Negative A code = 01927-2) Glucose, UA (test Negative Negative code = 365) Ketones, UA (test Negative Negative code = 2514-8) Bilirubin, UA (test Negative Negative code = 83355-6) Blood, UA (test code Small Negative A = 48451-2) Nitrite, UA (test Negative Negative code = 5802-4) Leukocytes, UA (test Negative Negative code = 5799-2) Urobilinogen, UA 0.2 0.2-1.0 (test code = 46212-9) RBC, UA (test code = 51 See_Comment [Autom ated 57886-7) message] The system which generated this result [...] UA See_Comment [Automate d (test code = 91603-7) messag e] The system which generated this result transmitted reference range : /HPF. The reference range was not used to interpret this result as normal/abnormal . Specimen Source (test code = 2795) LYNDSAY (test code = LYNDSAY) [employer] Installer ID - [auto][employer] Installer ID - tech Lab Interpretation Abnormal (test code = 95927-5) [facility] Reflex [facility] Culture 2023-03-30 08:43:51 Test Item Value Reference Range Interpretation Comments Color, UA (test code Yellow = 5778-6) Clarity, UA (test Clear code = 5767-9) Specific [place], UA 1.033 1.001-1.035 (test code = 5811-5) pH, UA (test code = 6.0 5.0-8.0 5803-2) Protein, UA (test 30 mg/dL Negative A code = 47928-0) Glucose, UA (test Negative Negative code = 365) Ketones, UA (test Negative Negative code = 2514-8) Bilirubin, UA (test Negative Negative code = 81613-8) Blood, UA (test code Small Negative A = 31383-2) Nitrite, UA (test Negative Negative code = 5802-4) Leukocytes, UA (test Negative Negative code = 5799-2) Urobilinogen, UA 0.2 0.2-1.0 (test code = 78821-2) RBC, UA (test code = 51 See_Comment [Autom ated 85930-8) message] The system which generated this result [...] UA See_Comment [Automate d (test code = 16218-2) messag e] The system which generated this result transmitted reference range : /HPF. The reference range was not used to interpret this result as normal/abnormal . Specimen Source (test code = 2795) LYNDSAY (test code = LYNDSAY) [employer] Installer ID - [auto][employer] Installer ID - tech Lab Interpretation Abnormal (test code = 34365-8) [facility] URINE VQIMCSA3221-12-12 08:43:51 Test Item Value Reference Range Interpretation [...] = 516) SOURCE(BEAKER) (test code = 2795) [employer] Installer ID - [auto][employer] Installer ID - techCOMPREHENSIVE METABOLIC HQFDZ5783-19-08 04:37:29 Test Item Value Reference Range Interpretation [...] not appl icable for dialysis patien ts [employer] Installer ID - MATT BPT/SUUN9463-07-44 04:30:17 Test Item Value Reference Range Interpretation [...] WBC 0-0 (BEAKER) (test code = 413) FEP-BEAZYUA0701-70-10 00:00:00Ordered by an unspecified provider.[facility] CenterEKG-AXQTSGJ4104-40-18 00:00:00Ordered by an unspecified provider. [facility] CenterMAGNESIUM2023-05-25 17:14:06 Test Item Value Reference Range Interpretation Comments MAGNESIUM (test code = 8499126548) 1.9 mg/dL 1.7-2.4 Lab Interpretation (test code = Normal 79307-3) [facility] (43932)2022-12-11 15:16:25 Test Item Value Reference Range Interpretation Comments NA (test code = 139 mmol/L 135-145 9868190760) K (test code = 3.5 mmol/L 3.5-5.0 1029248320) CL (test code = 107 mmol/L 98-108 7297825793) CO2 TOTAL (test code = 24 mmol/L 23-31 1317088449) AGAP (test code = 8 2-16 6594044506) BUN (test code = 9 mg/dL 7-23 8241698773) GLUCOSE (test code = 129 mg/dL 70-110 H 4928510101) CREATININE (test code = 0.68 mg/dL 0.50-1.04 3247916833) TOTAL BILI (test code = 0.5 mg/dL 0.1-1.0 1810693787) CALCIUM (test code = 8.9 mg/dL 8.6-10.6 9834030980) T PROTEIN (test code = 6.3 g/dL 6.3-8.2 3036670835) ALBUMIN (test code = 3.8 g/dL 3.5-5.0 3530056984) ALK PHOS (test code = 87 U/L 34-122 0517579064) ALTv (test code = 24 U/L 5-35 1742-6) AST(SGOT) (test code = 21 U/L 13-40 7739959576) eGFR (test code = 91.6 mL/min/1.73m2 4974721898) LYNDSAY (test code = LYNDSAY) Association of [...] tests). Lab Interpretation Abnormal (test code = 73553-0) [facility]TR[facility] [id number] 15:10:45 Test Item Value Reference Range Interpretation Comments TROPONIN I (test code = 0.015 ng/mL <=0.034 9867355528) LYNDSAY (test code = LYNDSAY) Reference (Normal) [...] biotin. Lab Interpretation Normal (test code = 15500-4) [facility]AL [id number] 15:07:48 Test Item Value Reference Range Interpretation Comments NT-proBNP (test code = 1460 pg/mL <=125 H 7828223495) LYNDSAY (test code = LYNDSAY) Biotin has been reported to cause a negative bias, interpret results relative to patient's use of biotin. Lab Interpretation (test Abnormal code = 32764-0) [facility] CenterD-YZRWP3407-51-47 14:45:24 Test Item Value Reference Interpretation Comments Range D-DIMER (test code = 0.99 See_Comment H [Autom ated 2537395848) message] The system which generated this result [...] diagnosis. Lab Interpretation Abnormal (test code = 26797-4) [facility] WITH [id number] 14:14:48 Test Item Value Reference Range Interpretation Comments WBC (test code = 7.86 See_Comment [Automated 7490-2) message] The sy stem which generated this result transmitted reference range : 4.30 - 11.10 10*3/?L. The reference range was not used to interpret this result as normal/abnormal . RBC (test code = 5.13 See_Comment [Automated 369-8) message] The sy stem which generated this [...] RDW-SD (test code = 47.8 fL 39.0-49.9 37935-7) RDW-CV (test code = 16.9 % 12.0-15.5 H 788-0) PLT (test code = 507 See_Comment H [Automated 567-3) message] The sy stem which generated this result transmitted reference range : 166 - 358 10*3/ ?L. The reference r zoe was not used to interpret this result as normal/abnormal . MPV (test code = 8.2 fL 9.5-12.9 L 48143-2) NRBC/100 WBC (test 0.0 See_Comment [Automat ed code = 8303348674) message] The system which generated this result transmitted reference range : 0.0 - 10.0 /100 WBCs. The refer ence range was not u sed to interpret th is result as normal/abnormal . NRBC x10^3 (test code See_Comment [Auto mated = 0917265942) message] The s ystem which generated this result transmitted reference range : 10*3/?L. The reference range was not used to interpret this result as normal/abnormal . GRAN MAT (NEUT) % 64.5 % (test code = 770-8) IMM GRAN % (test code 0.30 % = 6763448968) LYMPH % (test code = 25.6 % 736-9) MONO % (test code = 7.5 % 5905-5) EOS % (test code = 1.0 % 713-8) BASO % (test code = 1.1 % 706-2) GRAN MAT x10^3(ANC) 5.07 10*3/uL 1.88-7.09 (test code = 0833772155) IMM GRAN x10^3 (test 0.00-0.06 code = 8098051661) LYMPH x10^3 (test code 2.01 10*3/uL 1.32-3.29 = 731-0) MONO x10^3 (test code 0.59 10*3/uL 0.33-0.92 = 742-7) EOS x10^3 (test code = 0.08 10*3/uL 0.03-0.39 711-2) BASO x10^3 (test code 0.09 10*3/uL 0.01-0.07 H = 704-7) Lab Interpretation Abnormal (test code = 91452-9) [facility] CenterRPR[facility] 13:17:22 Test Item Value Reference Range Interpretation Comments RPR SCREEN (BEAKER) (test code = Nonreactive Nonreactive 420) HEMOGLOBIN [id number] 10:39:49 Test Item Value Reference Range Interpretation Comments HEMOGLOBIN A1C 5.8 % See_Comment H [Automated m essage] ELECTROPHORESIS (BEAKER) The system which (test code = 3811) generated this result transmitted ref erence range: <=5.6%. The reference range was not used to int erpret this result as normal/abnormal . "The A1c is measured using a [facility]-certified method. HbA1c value equal to or greater than 6.5% as thediagnosis cutoff for diabetes. An HbA1c value of 5.7- 6.4% indicates increased risk for diabetes (prediabetes)."[employer] Installer ID - ADM VITAMIN [id number] 22:48:27 Test Item Value Reference Range Interpretation Comments VITAMIN B12 (BEAKER) (test code = 227 pg/mL 213-816 774) [employer] Installer ID - MARCOTSH/FREE T4 IF [id number] 22:08:28 Test Item Value Reference Range Interpretation Comments THYROID STIMULATING HORMONE 3.309 uIU/mL 0.350-4.940 (BEAKER) (test code = 772) [employer] Installer ID - JSHIV-1 ANTIGEN WITH HIV-1/2 HUQNGTFS9694-46-35 22:08:28 Test Item Value Reference Range Interpretation Comments HIV-1 ANTIGEN WITH HIV 1\\T\\2 Nonreactive Nonreactive ANTIBODY (2) (BEAKER) (test code = 2586) [employer] Installer ID - JSC-REACTIVE [id number] 21:49:44 Test Item Value Reference Range Interpretation Comments C-REACTIVE PROTEIN (BEAKER) (test 0.35 mg/dL 0.00-0.50 code = 676) [employer] Installer ID - JSCOMPREHENSIVE METABOLIC [id number] 21:49:43 Test Item Value Reference Range Interpretation [...] not appl icable for dialysis patien ts [employer] Access[employer] Installer ID - JSLIPID IAHNT9617-04-35 21:49:43 Test Item Value Reference Range Interpretation [...] Borderline 130-159 High 160-189 Very High >=190 Autom[employer] Accessory Installer ID - JSCBC W/PLT COUNT & AUTO [id number] 21:34:03 Test Item Value Reference Range Interpretation [...] Interpretation Comments Height (test code = in 8591811956) Weight (test code = lbs 4897189992) Systolic BP (test code = mmHg 3621426660) Diastolic BP (test code mmHg = 1655342890) Heart Rate (test code = bpm 8770123441) BSA (test code = 2.00 m2 2510994278) Ao root diam (test code 3.20 cm = 7367940855) Aortic root (test code = 3.2 cm 9775819733) Ao root annulus (test 3.2 cm code = 8030033604) LVOT diameter (test code 1.99 cm = 0438931309) LVOT area (test code = 3.10 cm2 3553029530) LVIDD (test code = 5.10 cm 3366863211) Left Ventricular End 123.0 mL Diastolic Volume by Teichholz Method (test code = 1593771) IVS (test code = 1.34 cm 6168805379) Interventricular Septum 1.34 cm Diastolic Thickness by 2D (test code = 9753696) LVPWD (test code = 1.34 cm 3171541409) PW (test code = 1.34 cm 0.6-1.4 6706178798) EF(Teich) (test code = 41.80 % 2113556718) LVIDS (test code = 4.00 cm 7608534015) Left Ventricular End 71.5 mL Systolic Volume by Teichholz Method (test code = 1936402) FS (test code = 21 % 0322638778) EF - 2D (test code = 41.80 % 15130153) LA size (test code = 4.6 cm 4033686999) Pulmonic Regurgitant End 119.4 cm/s Max Velocity (test code = 5797936143) LAV(MOD-sp4) (test code 95.00 mL = 2738989311) E wave decelartion time 0.15 s (test code = 2462647959) MV stenosis pressure 1/2 45.6 ms time (test code = 1030821082) MV Peak A Evette (test code 123.8 cm/s = 2332147591) MV Peak E Evette (test code 109.7 cm/s = 3661772332) E/A ratio (test code = ratio 7398419087) MR max PG (test code = 87.20 mm[Hg] 9680233789) MR max evette (test code = 466.90 cm/s 9706555868) Mr max evette (test code = 466.9 m/s 0995340965) MV Prop V (test code = 51.00 cm/s 6241078413) MV E/e' septal (test 8.1 cm/s code = 8478849524) Tapse (test code = 2.21 cm 3825171977) LVOT stroke volume (test 49.80 cm3 code = 8968109117) LVOT peak evette (test code 89.1 cm/s = 7218558347) LVOT mn grad (test code mmHg = 6203179099) AV LVOT peak gradient mmHg (test code = 6402158596) LVOT peak VTI (test code 16.0 cm = 4804843622) LV V1 mean (test code = 64.30 cm/s 4814375717) Aortic valve mean 133.8 cm/s velocity (test code = 6751088670) Ao peak evette (test code = 175.3 cm/s 4206558574) Ao VTI (test code = 32.2 cm 4094228002) AV area by cont VTI 1.6 cm2 (test code = 6450405771) AV area peak evette (test 1.6 cm2 code = 4883508119) Ao max PG (test code = 12.30 mm[Hg] 0125465929) AV peak gradient (test mmHg code = 0126706954) AV valve area (test code 1.55 cm2 = 9714802482) AV mean gradient (test mmHg code = 7846639377) AV regurgitation 358.5 ms pressure 1/2 time (test code = 8848738812) AI dec slope (test code 364.20 cm/s2 = 0641033256) AI max evette (test code = 445.80 cm/s 6125194143) AI max PG (test code = 79.50 mm[Hg] 1670924716) Radiology Study observation (narrative) (test code = 27009-7) LYNDSAY (test code = LYNDSAY) ?Left?Ventricle: Left [...] mL of Lumason ultrasound enhancing agent used. [facility]2022-08-01 10:43:32 Test Item Value Reference Range Interpretation Comments POCT GLU (test code = 9677664312) 148 mg/dL 70-110 H Lab Interpretation (test code = Abnormal 59220-1) [facility] CenterACTIVATED PARTIAL THRMPLAS [id number] 18:39:45 Test Item Value Reference Range Interpretation [...] seconds. Lab Interpretation Normal (test code = 55237-6) [facility] CenterPROTHROMBIN TIME / [id number] 18:37:42 Test Item Value Reference Range Interpretation [...] tions. Lab Interpretation (test Normal code = 86353-9) [facility] CenterTROP[facility]IN [id number] 18:32:01 Test Item Value Reference Interpretation Comments Range TROPONIN I (test 0.019 ng/mL See_Comment [Automated code = 7846327767) message] The system which generated this result [...] biotin. Lab Interpretation Normal (test code = 31125-4) [facility] CenterN-TERMINAL [id number]-[id number] 18:29:01 Test Item Value Reference Range Interpretation Comments NT-proBNP (test code 2770 pg/mL See_Comment H [Autom ated = 0838873200) message] The system which generated this result transmitted reference range : <=125. The reference range was not used to interpret this result as normal/abnormal . LYNDSAY (test code = LYNDSAY) Biotin has been reported to cause a negative bias, interpret results relative to patient's use of biotin. Lab Interpretation Abnormal (test code = 78550-0) [facility]. METABOLIC PANEL (60471)2022-07-31 18:21:42 Test Item Value Reference Range Interpretation Comments NA (test code = 136 mmol/L 135-145 2139911637) K (test code = 4.6 mmol/L 3.5-5.0 9439635245) CL (test code = 104 mmol/L 98-108 8349222161) CO2 TOTAL (test code = 26 mmol/L 23-31 0038831975) AGAP (test code = 2-16 4204160115) BUN (test code = 9 mg/dL 7-23 4055849520) GLUCOSE (test code = 97 mg/dL 70-110 5722027092) CREATININE (test code = 0.64 mg/dL 0.50-1.04 5132597876) TOTAL BILI (test code = 0.5 mg/dL 0.1-1.4 0417853927) CALCIUM (test code = 8.2 mg/dL 8.6-10.6 L 4004491044) T PROTEIN (test code = 6.5 g/dL 6.3-8.2 4475466828) ALBUMIN (test code = 3.9 g/dL 3.5-5.0 2541263408) ALK PHOS (test code = 93 U/L 34-122 4510617157) ALTv (test code = 18 U/L 5-35 1742-6) AST(SGOT) (test code = 19 U/L 13-40 1484668032) eGFR (test code = mL/min/1.73m2 3273508260) LYNDSAY (test code = LYNDSAY) Association of [...] tests). Lab Interpretation Abnormal (test code = 66316-4) [facility] CenterLIPASE2023-01-[facility] 18:21:01 Test Item Value Reference Range Interpretation Comments LIPASE (test code = 8343480245) 54 U/L 0-220 Lab Interpretation (test code = Normal 26073-4) [facility] WITH [id number] 18:07:00 Test Item Value Reference Range Interpretation Comments WBC (test code = See_Comment [Automated 3490-2) message] The sy stem which generated this result transmitted reference range : 4.30 - 11.10 10*3/?L. The reference range was not used to interpret this result as normal/abnormal . RBC (test code = See_Comment [Automated 823-8) message] The sy stem which generated this [...] (test code = 53.1 fL 39.0-49.9 H 08920-5) RDW-CV (test code = 17.0 % 12.0-15.5 H 788-0) PLT (test code = See_Comment H [Automated 777-3) message] The sy stem which generated this result transmitted reference range : 166 - 358 10*3/ ?L. The reference r zoe was not used to interpret this result as normal/abnormal . MPV (test code = 8.2 fL 9.5-12.9 L 96241-1) NRBC/100 WBC (test See_Comment [Automat ed code = 1530858992) message] The system which generated this result transmitted reference range : 0.0 - 10.0 /100 WBCs. The refer ence range was not u sed to interpret th is result as normal/abnormal . NRBC x10^3 (test code See_Comment [Auto mated = 7690811193) message] The s ystem which generated this result transmitted reference range : 10*3/?L. The reference range was not used to interpret this result as normal/abnormal . GRAN MAT (NEUT) % 64.0 % (test code = 770-8) IMM GRAN % (test code 0.40 % = 4777103710) LYMPH % (test code = 27.3 % 736-9) MONO % (test code = 6.5 % 5905-5) EOS % (test code = 1.1 % 713-8) BASO % (test code = 0.7 % 706-2) GRAN MAT x10^3(ANC) 5.46 10*3/uL 1.88-7.09 (test code = 3978458342) IMM GRAN x10^3 (test 0.03 10*3/uL 0.00-0.06 code = 2235896453) LYMPH x10^3 (test code 2.32 10*3/uL 1.32-3.29 = 731-0) MONO x10^3 (test code 0.55 10*3/uL 0.33-0.92 = 742-7) EOS x10^3 (test code = 0.09 10*3/uL 0.03-0.39 711-2) BASO x10^3 (test code 0.06 10*3/uL 0.01-0.07 = 704-7) Lab Interpretation Abnormal (test code = 37428-3) [facility] METABOLIC PANEL (NA, K, CL, CO2, GLUCOSE, BUN, CREATININE, CA)2022-05-08 06:37:01 Test Item Value Reference Range Interpretation Comments NA (test code = 137 mmol/L 135-145 3783422577) K (test code = 3.8 mmol/L 3.5-5 0820448930) CL (test code = 103 mmol/L 98-108 1410606272) CO2 TOTAL (test code = 24 mmol/L 23-31 5642434104) AGAP (test code = 2-16 9301323865) BUN (test code = 13 mg/dL 7-23 2975824546) GLUCOSE (test code = 90 mg/dL 70-110 5002838563) CREATININE (test code = 0.69 mg/dL 0.5-1.04 2358274526) CALCIUM (test code = 8.5 mg/dL 8.6-10.6 L 0334872317) eGFR (test code = mL/min/1.73m2 8273509492) LYNDSAY (test code = LYNDSAY) Association of [...] tests). Lab Interpretation Abnormal (test code = 06186-7) [facility]MAGN[facility]IUM2022-[facility] 06:37:01 Test Item Value Reference Range Interpretation Comments MAGNESIUM (test code = 8719692508) 2.1 mg/dL 1.7-2.4 Lab Interpretation (test code = Normal 34435-3) [facility] CenterPHOSPHORUS2022-10-20 06:37:01 Test Item Value Reference Range Interpretation Comments PHOSPHORUS (test code = 1522772059) 4.7 mg/dL 2.5-5 Lab Interpretation (test code = Normal 01602-3) [facility] CenterCB WITH [id number] 06:11:54 Test Item Value Reference Range Interpretation Comments WBC (test code = See_Comment [Automated 8190-2) message] The sy stem which generated this result transmitted reference range : 4.30 - 11.10 10*3/?L. The reference range was not used to interpret this result as normal/abnormal . RBC (test code = See_Comment [Automated 279-8) message] The sy stem which generated this [...] (test code = 51.0 fL 39-49.9 H 99218-9) RDW-CV (test code = 16.5 % 12-15.5 H 788-0) PLT (test code = See_Comment H [Automated 777-3) message] The sy stem which generated this result transmitted reference range : 166 - 358 10*3/ ?L. The reference r zoe was not used to interpret this result as normal/abnormal . MPV (test code = 8.3 fL 9.5-12.9 L 52044-8) NRBC/100 WBC (test See_Comment [Automat ed code = 3833079984) message] The system which generated this result transmitted reference range : 0.0 - 10.0 /100 WBCs. The refer ence range was not u sed to interpret th is result as normal/abnormal . NRBC x10^3 (test code See_Comment [Auto mated = 9012132344) message] The s ystem which generated this result transmitted reference range : 10*3/?L. The reference range was not used to interpret this result as normal/abnormal . GRAN MAT (NEUT) % 64.5 % (test code = 770-8) IMM GRAN % (test code 0.50 % = 9132709098) LYMPH % (test code = 27.1 % 736-9) MONO % (test code = 6.6 % 5905-5) EOS % (test code = 0.6 % 713-8) BASO % (test code = 0.7 % 706-2) GRAN MAT x10^3(ANC) 5.28 10*3/uL 1.88-7.09 (test code = 9218609008) IMM GRAN x10^3 (test 0.04 10*3/uL 0-0.06 code = 9602626018) LYMPH x10^3 (test code 2.22 10*3/uL 1.32-3.29 = 731-0) MONO x10^3 (test code 0.54 10*3/uL 0.33-0.92 = 742-7) EOS x10^3 (test code = 0.05 10*3/uL 0.03-0.39 711-2) BASO x10^3 (test code 0.06 10*3/uL 0.01-0.07 = 704-7) Lab Interpretation Abnormal (test code = 38285-9) [facility] GLUCOSE (AUTOMATED)2022-05-07 01:18:10 Test Item Value Reference Range Interpretation Comments POCT GLU (test code = 7825274888) 120 mg/dL 70-110 H Lab Interpretation (test code = Abnormal 95807-5) [facility] CenterType and Screen - ONCE [id number] 05:46:35 Test Item Value Reference Range Interpretation Comments ABO & RH (test code O POSITIVE Performe d at [facility] = 20) Laboratory Serv [facility] Blood [facility] [place] [address]Refc Free: [phone] A No. [id number] IAT (test code = Negative Performed a t [facility] 1185) Laboratory Serv [facility] Blood [facility] [address] [place] [address]Tbhe Free: [phone] A No. [id number] [facility] CenterBASIC METABOLIC PANEL (NA, K, CL, CO2, GLUCOSE, BUN, CREATININE, CA)2022-05-05 08:22:57 Test Item Value Reference Range Interpretation Comments NA (test code = 136 mmol/L 135-145 7608171835) K (test code = 4.9 mmol/L 3.5-5 9418412594) CL (test code = 108 mmol/L 98-108 9248287164) CO2 TOTAL (test code = 22 mmol/L 23-31 L 0284871012) AGAP (test code = 2-16 4167647995) BUN (test code = 12 mg/dL 7-23 5198421419) GLUCOSE (test code = 155 mg/dL 70-110 H 1867867371) CREATININE (test code = 0.63 mg/dL 0.5-1.04 9023778667) CALCIUM (test code = 8.4 mg/dL 8.6-10.6 L 2010065486) eGFR (test code = mL/min/1.73m2 8469133342) LYNDSAY (test code = LYNDSAY) Association of [...] tests). Lab Interpretation Abnormal (test code = 58039-7) [facility] CenterPROTHROMBIN TIME / [id number] 08:22:37 Test Item Value Reference Range Interpretation Comments PROTIME PATIENT (test See_Comment [Auto mated message] code = 5964-2) The system [employer] generated this result transmitted ref erence range: 10.1 - 1 2.6 Seconds. The re ference range was not u sed to interpret this result as normal/abnor mal. INR (test code = 6301-6) Nor mal INR <1.1; Warfarin Therap eutic range 2.0 to 3. 0 or 2.5 to 3.5, dep ending upon the indica tions. Lab Interpretation (test Normal code = 57653-4) [facility] CenteraPTT2022-[facility] 08:22:37 Test Item Value Reference Range Interpretation Comments APTT Patient (test code = See_Comment [ Automated message] 3173-2) The system [employer] generated this result transmitted ref erence range: 26 - 36 Seconds. The re ference range was not u sed to interpret this result as normal/abnor mal. Lab Interpretation (test Normal code = 80983-6) [facility] CenterFIBRINOGEN2022-10-17 08:22:37 Test Item Value Reference Range Interpretation Comments Fibrinogen (test code = 7421790827) 294 mg/dL 167-453 Lab Interpretation (test code = Normal 48535-4) [facility] WITH [id number] 08:15:01 Test Item Value Reference Range Interpretation [...] (test code = 52.9 fL 39-49.9 H 29886-4) RDW-CV (test code = 16.8 % 12-15.5 H 788-0) PLT (test code = See_Comment H [Automated 777-3) message] The sy stem which generated this result transmitted reference range : 166 - 358 10*3/ ?L. The reference r zoe was not used to interpret this result as normal/abnormal . MPV (test code = 8.3 fL 9.5-12.9 L 61963-5) NRBC/100 WBC (test See_Comment [Automat ed code = 5725991060) message] The system which generated this result transmitted reference range : 0.0 - 10.0 /100 WBCs. The refer ence range was not u sed to interpret th is result as normal/abnormal . NRBC x10^3 (test code See_Comment [Auto mated = 3828090159) message] The s ystem which generated this result transmitted reference range : 10*3/?L. The reference range was not used to interpret this result as normal/abnormal . GRAN MAT (NEUT) % 86.4 % (test code = 770-8) IMM GRAN % (test code 0.40 % = 6989290816) LYMPH % (test code = 11.7 % 736-9) MONO % (test code = 1.1 % 5905-5) EOS % (test code = 0.0 % 713-8) BASO % (test code = 0.4 % 706-2) GRAN MAT x10^3(ANC) 6.36 10*3/uL 1.88-7.09 (test code = 5227545282) IMM GRAN x10^3 (test 0.03 10*3/uL 0-0.06 code = 0932775062) LYMPH x10^3 (test code 0.86 10*3/uL 1.32-3.29 L = 731-0) MONO x10^3 (test code 0.08 10*3/uL 0.33-0.92 L = 742-7) EOS x10^3 (test code = 0.03-0.39 L 711-2) BASO x10^3 (test code 0.03 10*3/uL 0.01-0.07 = 704-7) Lab Interpretation Abnormal (test code = 89191-8) [id number] 20:14:03 Test Item Value Reference Range Interpretation Comments VIT D 25OH (test code = 22 ng/mL 25-80 L 24106-1) LYNDSAY (test code = LYNDSAY) Deficiency: <20 ng/mLInsufficiency: 20-24 ng/mLOptimal: 25-80 ng/mL Lab Interpretation (test Abnormal code = 80521-8) [facility] (NA, K, CL, CO2, GLUCOSE, BUN, CREATININE, CA)2022-04-15 11:27:57 Test Item Value Reference Range Interpretation Comments NA (test code = 138 mmol/L 135-145 4073396370) K (test code = 3.9 mmol/L 3.5-5 2958947379) CL (test code = 106 mmol/L 98-108 9696605377) CO2 TOTAL (test code = 23 mmol/L 23-31 0549951360) AGAP (test code = 2-16 4004300109) BUN (test code = 10 mg/dL 7-23 2705586829) GLUCOSE (test code = 91 mg/dL 70-110 4817943667) CREATININE (test code = 0.65 mg/dL 0.5-1.04 9861769366) CALCIUM (test code = 8.1 mg/dL 8.6-10.6 L 4375217384) eGFR (test code = mL/min/1.73m2 3403351331) LYNDSAY (test code = LYNDSAY) Association of [...] tests). Lab Interpretation Abnormal (test code = 80332-4) [facility] - Transthoracic echo (TTE) 2022-04-14 22:07:33 Test Item Value Reference Range Interpretation Comments Height (test code = in 9533487365) Weight (test code = lbs 4191435452) Systolic BP (test code = mmHg 5612456999) Diastolic BP (test code mmHg = 7657592931) Heart Rate (test code = bpm 7563653676) BSA (test code = 1.94 m2 0844437537) TASV (test code = 15.5 cm/s 9783249267) LVIDD (test code = 6.00 cm 6635168359) Left Ventricular End 183.0 mL Diastolic Volume by Teichholz Method (test code = 9292901) IVS (test code = 1.09 cm 5807929290) Interventricular Septum 1.09 cm Diastolic Thickness by 2D (test code = 0537407) LVPWD (test code = 0.94 cm 3798403975) PW (test code = 0.94 cm 0.6-1.6 6835671202) EF(Teich) (test code = 40.30 % 2007647329) LVIDS (test code = 4.80 cm 9675584085) Left Ventricular End 109.2 mL Systolic Volume by Teichholz Method (test code = 5743999) FS (test code = 20 % 6909207699) EF - 2D (test code = 40.30 % 81775401) LVOT diameter (test code 2.05 cm = 7395733914) LVOT area (test code = 3.30 cm2 8894094277) Ao root diam (test code 3.10 cm = 7737205513) Aortic root (test code = 3.1 cm 9295863453) Ao root annulus (test 3.1 cm code = 7821920741) LA size (test code = 4.2 cm 4181945982) LAV(MOD-sp4) (test code 64.90 mL = 3207324295) MV Peak A Evette (test code 115.7 cm/s = 2271804801) E wave decelartion time 0.15 s (test code = 4270589551) MV Peak E Evette (test code 106.2 cm/s = 7436514742) E/A ratio (test code = ratio 7722483207) LVOT stroke volume (test 48.30 cm3 code = 0504252804) LVOT peak evette (test code 78.4 cm/s = 0287905167) LVOT mn grad (test code mmHg = 9424361917) AV LVOT peak gradient mmHg (test code = 9861118417) LVOT peak VTI (test code 14.7 cm = 7168058147) LV V1 mean (test code = 51.40 cm/s 5794397905) Ao peak evette (test code = 154.7 cm/s 5323197164) AV area peak evette (test 1.7 cm2 code = 4416636946) Ao max PG (test code = 9.60 mm[Hg] 7293151221) AV peak gradient (test mmHg code = 1016849087) AV regurgitation 257.3 ms pressure 1/2 time (test code = 7835891939) AI dec slope (test code 498.10 cm/s2 = 6435864332) AI max evette (test code = 437.60 cm/s 3415724706) AI max PG (test code = 77.80 mm[Hg] 6597409689) Tapse (test code = 2.19 cm 1387629186) LA Volume Index (BP) 32.0 mL/m2 (test code = 7033182538) LA volume (BP) (test 62.1 mL code = 6017141249) LAV(MOD-sp2) (test code 52.70 mL = 7603806198) A4C EF (test code = 44.80 % 7985548870) EF(sp4-el) (test code = 45.20 % 6552100598) SV(MOD-sp4) (test code = 71.20 mL 7354768086) SV(sp4-el) (test code = 73.90 mL 9366914295) LV Diastolic Volume (BP) 146.3 mL (test code = 5918802003) A2C EF (test code = 52.00 % 5751162456) EF(MOD-bp) (test code = 46.70 % 8651662925) EF(sp2-el) (test code = 52.40 % 5313906024) LV Systolic Volume (BP) 77.9 mL (test code = 2941047929) SV(MOD-bp) (test code = 68.40 mL 7933899326) SV(MOD-sp2) (test code = 69.20 mL 9281345944) EF (test code = 6311870982) Left Ventricular Stroke 68.4 mL Volume by 2-D Biplane-MOD (test code = 0076637) Radiology Study observation (narrative) (test code = 19241-3) LYNDSAY (test code = LYNDSAY) ?Left?Ventricle: Left [...] agent used and saline contrast was performed. [facility]LE[facility] (LEVETIRAC[facility]AM)2022-04-14 16:48:36 Test Item Value Reference Range Interpretation Comments LEAH (test code = 12-46 L 6344699304) LYNDSAY (test code = LYNDSAY) Therapeutic range: 12-46 ?g/mL ? ?Toxic: Not well established.Test developed and characteristics determined by [facility] Laboratory Services. Lab Interpretation Abnormal (test code = 89799-5) [facility] Metabolic Panel (Na, K, Cl, CO2, Glucose, BUN, Creatinine, Ca)2022-04-14 10:50:11 Test Item Value Reference Range Interpretation Comments NA (test code = 136 mmol/L 135-145 0023107792) K (test code = 3.8 mmol/L 3.5-5 4720760654) CL (test code = 105 mmol/L 98-108 5824464892) CO2 TOTAL (test code = 25 mmol/L 23-31 3691358551) AGAP (test code = 2-16 5253031749) BUN (test code = 9 mg/dL 7-23 3448760758) GLUCOSE (test code = 101 mg/dL 70-110 4522568036) CREATININE (test code = 0.66 mg/dL 0.5-1.04 4004637268) CALCIUM (test code = 8.1 mg/dL 8.6-10.6 L 6986634323) eGFR (test code = mL/min/1.73m2 9234956585) LYNDSAY (test code = LYNDSAY) Association of [...] tests). Lab Interpretation Abnormal (test code = 54552-5) [facility] CenterMagensium, [id number] 10:50:11 Test Item Value Reference Range Interpretation Comments MAGNESIUM (test code = 6329310965) 1.9 mg/dL 1.7-2.4 Lab Interpretation (test code = Normal 86444-0) [facility] CenterThyroid Stimulating [id number] 22:21:44 Test Item Value Reference Range Interpretation Comments TSH (test code = See_Comment Biotin has been 2597173373) reported to cau se a negative bias, interpret resul ts relative to autumn garcia's use of biotin. [Automated mess age] The system [employer] generated this result transmitted ref erence range: 0.45 - 4 .70 mIU/L. The refe rence range was not u sed to interpret this result as normal/abnor mal. Lab Interpretation (test Normal code = 15025-3) [facility] CenterGLYCOSYLATED HEMOGLOBIN (A1C)2022-04-13 21:53:43 Test Item Value Reference Range Interpretation Comments HGB A1C (test code = 5.8 % 4-5.7 H 4548-4) LYNDSAY (test code = LYNDSAY) Reference RangesNormal: <5.7%Prediabetes: 5.7 - 6.4%Diabetes: > 6.5% Lab Interpretation (test Abnormal code = 14976-8) [facility] CenterFASTING LIPID PANEL (61876)(TOTAL CHOLESTEROL, TRIGLYCERIDES, HDL)2022-04-13 21:34:53 Test Item Value Reference Range Interpretation Comments CHOL (test code = 201 mg/dL 120-200 H 2422984550) HDL (test code = 56 mg/dL See_Comment [Automated message] 3205498694) The system [employer] generated this result transmit sherice reference range : >=50. The refer ence range was not u sed to interpret th is result as normal/abnormal . HDLC RATIO (test code = See_Comment [Au tomated message] 7713438148) The system [employer] generated this result transmit sherice reference range : <=4.5. The refe rence range was not u sed to interpret th is result as normal/abnormal . TRIG (test code = 355 mg/dL 30-170 H 0824668870) LDL CHOL (test code = 74 mg/dL See_Comment [Auto mated message] 29112-2) The system [employer] generated this result transmit sherice reference range : <=160. The refe rence range was not u sed to interpret th is result as normal/abnormal . VLDL (test code = 71 mg/dL 5-60 H 0287757525) Lab Interpretation (test Abnormal code = 77117-4) [facility] CenterTroponin I - Code [id number] 18:46:27 Test Item Value Reference Interpretation Comments Range TROPONIN I (test 0.013 ng/mL See_Comment [Automated code = 2156295888) message] The system which generated this result [...] biotin. Lab Interpretation Normal (test code = 07345-6) [facility] (NA, K, CL, CO2, Glucose, BUN, Creatinine, CA) - Code [id number] 18:35:07 Test Item Value Reference Range Interpretation Comments NA (test code = 136 mmol/L 135-145 4858193504) K (test code = 4.3 mmol/L 3.5-5 2282258874) CL (test code = 105 mmol/L 98-108 9398000766) CO2 TOTAL (test code = 27 mmol/L 23-31 0799942848) AGAP (test code = 2-16 1322319477) BUN (test code = 8 mg/dL 7-23 9009929003) GLUCOSE (test code = 130 mg/dL 70-110 H 8049665139) CREATININE (test code = 0.75 mg/dL 0.5-1.04 9934743918) CALCIUM (test code = 8.5 mg/dL 8.6-10.6 L 1785154085) eGFR (test code = mL/min/1.73m2 9847413069) LYNDSAY (test code = LYNDSAY) Association of [...] tests). Lab Interpretation Abnormal (test code = 85614-7) [facility] CenteraPTT - Code [id number] 18:32:46 Test Item Value Reference Range Interpretation [...] seconds. Lab Interpretation Normal (test code = 29413-5) [facility] CenterProthrombin Time / INR - Code [id number] 18:30:45 Test Item Value Reference Range Interpretation Comments PROTIME PATIENT (test See_Comment [Auto mated message] code = 5964-2) The system [employer] generated this result transmitted ref erence range: 12.0 - 1 4.7 Seconds. The re ference range was not u sed to interpret this result as normal/abnor mal. INR (test code = 6301-6) Nor mal INR <1.1; Warfarin Therap eutic range 2.0 to 3. 0 or 2.5 to 3.5, dep ending upon the indica tions. Lab Interpretation (test Normal code = 47760-9) [facility] CenterCB without Diff - Code [id number] 18:23:07 Test Item Value Reference Range Interpretation Comments WBC (test code = 6690-2) See_Comment [A utomated message] The system [employer] generated this result transmit sherice reference range : 4.30 - 11.10 10*3/?L. The reference range was not used to interpret this result as normal/abnormal . RBC (test code = 789-8) See_Comment [Au tomated message] The system [employer] generated this result transmit sherice reference range [...] See_Comment H [Au tomated message] The system [employer] generated this result transmit sherice reference range : 166 - 358 10*3/?L. The reference range was not used to interpret this result as normal/abnormal . MPV (test code = 8.1 fL 9.5-12.9 L 66058-2) RDW-CV (test code = 16.1 % 12-15.5 H 788-0) RDW-SD (test code = 49.2 fL 39-49.9 93928-3) NRBC x10^3 (test code = See_Comment [Au tomated message] 2202655299) The system [employer] generated this result transmit sherice reference range : 10*3/?L. The reference range was not used to interpret this result as normal/abnormal . NRBC/100 WBC (test code See_Comment [Au tomated message] = 7684276013) The system [facility] generated this result transmit sherice reference range : 0.0 - 10.0 /100 WBC s. The reference r zoe was not used to interpret this result as normal/abnormal . IPF % (test code = 9020312872) Lab Interpretation (test Abnormal code = 27481-6) [facility] CenterFREDACOLLETON MEDICAL CENTERINDIRA [id number] 21:06:40 Test Item Value Reference Interpretation Comments Range TROPONIN I (test 0.005 ng/mL See_Comment [Automated code = 7338376695) message] The system which generated this result [...] biotin. Lab Interpretation Normal (test code = 09745-2) [facility]. METABOLIC PANEL (75004)2021-11-23 20:55:42 Test Item Value Reference Range Interpretation Comments NA (test code = 137 mmol/L 135-145 2795939185) K (test code = 4.3 mmol/L 3.5-5.0 7670004330) CL (test code = 104 mmol/L 98-108 9619686825) CO2 TOTAL (test code = 22 mmol/L 23-31 L 8103700198) AGAP (test code = 2-16 9909710550) BUN (test code = 15 mg/dL 7-23 0606877455) GLUCOSE (test code = 114 mg/dL 70-110 H 2036500550) CREATININE (test code = 0.68 mg/dL 0.50-1.04 7844575412) TOTAL BILI (test code = 0.5 mg/dL 0.1-1.3 7193370076) CALCIUM (test code = 9.1 mg/dL 8.6-10.6 3962642168) T PROTEIN (test code = 7.3 g/dL 6.3-8.2 0302312843) ALBUMIN (test code = 4.4 g/dL 3.5-5.0 6171740668) ALK PHOS (test code = 243 U/L 34-122 H 6745038902) ALTv (test code = 24 U/L 5-35 1742-6) AST(SGOT) (test code = 30 U/L 13-40 1928682670) eGFR (test code = mL/min/1.73m2 7851523886) LYNDSAY (test code = LYNDSAY) Association of [...] tests). Lab Interpretation Abnormal (test code = 74649-5) [facility] CenterLIPASE2022-05-07 20:55:22 Test Item Value Reference Range Interpretation Comments LIPASE (test code = 1917687712) 96 U/L 0-220 Lab Interpretation (test code = Normal 82130-7) [facility] CenterPOCT [id number] 20:46:00 Test Item Value Reference Range Interpretation Comments POCT PREG (test code = 1605) negative On board controls acceptable with present C Line (test code = 3574) POCT PREG LOT # (test code = 3575) [id number] POCT PREG TEST DATE (test 04/18/2023 code = 3576) Lab Interpretation (test code = Normal 72505-5) [facility] CenterCBC WITH [id number] 20:40:38 Test Item Value Reference Range Interpretation Comments WBC (test code = See_Comment [Automated 5499-2) message] The sy stem which generated this result transmitted reference range : 4.30 - 11.10 10*3/?L. The reference range was not used to interpret this result as normal/abnormal . RBC (test code = See_Comment [Automated 143-9) message] The sy stem which generated this [...] (test code = 53.7 fL 39.0-49.9 H 79913-9) RDW-CV (test code = 17.2 % 12.0-15.5 H 788-0) PLT (test code = See_Comment H [Automated 777-3) message] The sy stem which generated this result transmitted reference range : 166 - 358 10*3/ ?L. The reference r zoe was not used to interpret this result as normal/abnormal . MPV (test code = 8.5 fL 9.5-12.9 L 18679-4) NRBC/100 WBC (test See_Comment [Automat ed code = 6008561668) message] The system which generated this result transmitted reference range : 0.0 - 10.0 /100 WBCs. The refer ence range was not u sed to interpret th is result as normal/abnormal . NRBC x10^3 (test code <0.01 See_Comment [Auto mated = 3885160243) message] The s ystem which generated this result transmitted reference range : 10*3/?L. The reference range was not used to interpret this result as normal/abnormal . GRAN MAT (NEUT) % 53.7 % (test code = 770-8) IMM GRAN % (test code 0.90 % = 2801304642) LYMPH % (test code = 32.6 % 736-9) MONO % (test code = 10.1 % 5905-5) EOS % (test code = 1.5 % 713-8) BASO % (test code = 1.2 % 706-2) GRAN MAT x10^3(ANC) 4.98 10*3/uL 1.88-7.09 (test code = 1237430229) IMM GRAN x10^3 (test 0.08 10*3/uL 0.00-0.06 H code = 7350591158) LYMPH x10^3 (test code 3.02 10*3/uL 1.32-3.29 = 731-0) MONO x10^3 (test code 0.94 10*3/uL 0.33-0.92 H = 742-7) EOS x10^3 (test code = 0.14 10*3/uL 0.03-0.39 711-2) BASO x10^3 (test code 0.11 10*3/uL 0.01-0.07 H = 704-7) Lab Interpretation Abnormal (test code = 44264-0) [facility] CenterPOCT GLUCOSE (AUTOMATED)2021-11-23 20:17:33 Test Item Value Reference Range Interpretation Comments POCT GLU (test code = 111 mg/dL 70-110 H Notifi ed Provider 4731166769) Lab Interpretation (test Abnormal code = 71764-4) [facility] CenterPAP TEST, THINPREP, [id number] 00:00:00 Test Item Value Reference Range Interpretation Comments SOURCE: (test code = Endocervical 8001) SLIDES: (test code = 1 8011) LMP: (test code = 8021) 06/03/2021 SPECIMEN ADEQUACY: (test (NOTE) code = 21973) INTERPRETATION: (test ASCUS/EPITH. code = 87083) ABNORMALITY; SEE BELOW APPRENTICE PAINTER BRUSH: (test Anusha code = 8101) CHANA Sepulveda(ASCP)[facility] PATHOLOGIST Nahid Russell, INTERPRETATION BY: (test M.DDelroy code = 8122) LOCATION: (test code = (NOTE) 71814) CPT: (test code = 8140) (NOTE) PAP TEST, THINPREP, [id number] 00:00:00 Test Item Value Reference Range Interpretation Comments SOURCE: (test code = Endocervical 8001) SLIDES: (test code = 1 8011) LMP: (test code = 8021) 06/03/2021 SPECIMEN ADEQUACY: (test (NOTE) code = 93336) INTERPRETATION: (test ASCUS/EPITH. code = 88598) ABNORMALITY; SEE BELOW APPRENTICE PAINTER BRUSH: (test Anusha code = 8101) CHANA Sepulveda(ASCP)IAC PATHOLOGIST Nahid Russell, INTERPRETATION BY: (test M.D. code = 8122) LOCATION: (test code = (NOTE) 42725) CPT: (test code = 8140) (NOTE) PAP TEST, THINPREP, [id number] 00:00:00 Test Item Value Reference Range Interpretation Comments SOURCE: (test code = Endocervical 8001) SLIDES: (test code = 1 8011) LMP: (test code = 8021) 06/03/2021 SPECIMEN ADEQUACY: (test (NOTE) code = 23986) INTERPRETATION: (test ASCUS/EPITH. code = 35849) ABNORMALITY; SEE BELOW APPRENTICE PAINTER BRUSH: (test Anusha code = 8101) CHANA Sepulveda(ASCP)IAC PATHOLOGIST Nahid Russell, INTERPRETATION BY: (test M.D. code = 8122) LOCATION: (test code = (NOTE) 00430) CPT: (test code = 8140) (NOTE) PAP TEST, THINPREP, [id number] 00:00:00 Test Item Value Reference Range Interpretation Comments SOURCE: (test code = Endocervical 8001) SLIDES: (test code = 1 8011) LMP: (test code = 8021) 06/03/2021 SPECIMEN ADEQUACY: (test (NOTE) code = 91556) INTERPRETATION: (test ASCUS/EPITH. code = 26849) ABNORMALITY; SEE BELOW APPRENTICE PAINTER BRUSH: (test Anusha code = 8101) CHANA Sepulveda(ASCP)[facility] PATHOLOGIST Nahid Russell, INTERPRETATION BY: (test M.D. code = 8122) LOCATION: (test code = (NOTE) 19822) CPT: (test code = 8140) (NOTE) HPV HIGH RISK WITH GENOTYPE, [id number] 00:00:00 Test Item Value Reference Range Interpretation Comments HPV HIGH RISK INTERP (test code = POSITIVE 28949) HPV 16 (test code = 48123) POSITIVE HPV 18 (test code = 25071) NEGATIVE HPV, HR, OTHER GENOTYPES (test code POSITIVE = 01222) HPV HIGH RISK WITH GENOTYPE, [id number] 00:00:00 Test Item Value Reference Range Interpretation Comments HPV HIGH RISK INTERP (test code = POSITIVE 26381) HPV 16 (test code = 17372) POSITIVE HPV 18 (test code = 06134) NEGATIVE HPV, HR, OTHER GENOTYPES (test code POSITIVE = 48605) HPV HIGH RISK WITH GENOTYPE, [id number] 00:00:00 Test Item Value Reference Range Interpretation Comments HPV HIGH RISK INTERP (test code = POSITIVE 24404) HPV 16 (test code = 07262) POSITIVE HPV 18 (test code = 18109) NEGATIVE HPV, HR, OTHER GENOTYPES (test code POSITIVE = 61259) HPV HIGH RISK WITH GENOTYPE, [id number] 00:00:00 Test Item Value Reference Range Interpretation Comments HPV HIGH RISK INTERP (test code = POSITIVE 02180) HPV 16 (test code = 78762) POSITIVE HPV 18 (test code = 17030) NEGATIVE HPV, HR, OTHER GENOTYPES (test code POSITIVE = 70552) [id number] 03:22:48 Test Item Value Reference Range Interpretation Comments APPEARANCE (test code = Hazy Clear A 4437917424) COLOR (test code = Yellow Yellow 9387577174) PH (test code = 4.8-8.0 5940352294) SP GRAVITY (test code = 1.003-1.030 4587611919) GLU U QUAL (test code = Normal Normal 7922565376) BLOOD (test code = Negative Negative Interfere nce from 8629721592) ascorbic acid m ay cause false neg ative results. KETONES (test code = 5 mg/dL Negative A 2166993730) PROTEIN (test code = Negative Negative 2887-8) UROBILIN (test code = 4.0 mg/dL Normal A 8413560372) BILIRUBIN (test code = Negative Negative 3152525462) NITRITE (test code = Negative Negative 5278079024) LEUK GRUPO (test code = Negative Negative 3914782646) RBC/HPF (test code = See_Comment [Autom ated message] 3536556088) The system [employer] generated this result transmitted ref erence range: 0 - 3 HP F. The reference range was not used to int erpret this result as normal/abnormal . WBC/HPF (test code = <1 See_Comment [Autom ated message] 3220626804) The system [employer] generated this result transmitted ref erence range: 0 - 5 HP F. The reference range was not used to int erpret this result as normal/abnormal . BACTERIA (test code = Few Negative A 2314928407) SQ EPITH (test code = HPF 4641666434) Lab Interpretation Abnormal (test code = 49514-2) [facility] CenterURINALYSIS2021-08-29 03:22:48 Test Item Value Reference Range Interpretation Comments APPEARANCE (test code = Hazy Clear A 5155704226) COLOR (test code = Yellow Yellow 3751855748) PH (test code = 4.8-8.0 6997684881) SP GRAVITY (test code = 1.003-1.030 6966710382) GLU U QUAL (test code = Normal Normal 8563174957) BLOOD (test code = Negative Negative 0199279957) KETONES (test code = 5 mg/dL Negative A 4440988205) PROTEIN (test code = Negative Negative 2887-8) UROBILIN (test code = 4.0 mg/dL Normal A 9998977238) BILIRUBIN (test code = Negative Negative 2235061585) NITRITE (test code = Negative Negative 0355277442) LEUK GRUPO (test code = Negative Negative 4203567054) RBC/HPF (test code = See_Comment [Autom ated message] 4852160269) The system [employer] generated this result transmit sherice reference range : 0 - 3 HPF. The refe rence range was not u sed to interpret th is result as normal/abnormal . WBC/HPF (test code = <1 See_Comment [Autom ated message] 4418172269) The system [employer] generated this result transmit sherice reference range : 0 - 5 HPF. The refe rence range was not u sed to interpret th is result as normal/abnormal . BACTERIA (test code = Few Negative A 2347214243) SQ EPITH (test code = HPF 7525820241) Lab Interpretation (test Abnormal code = 32388-1) [facility] CenterTROPONIN [id number] 02:45:00 Test Item Value Reference Interpretation Comments Range TROPONIN I (test 0.002 ng/mL See_Comment [Automated code = 8431168014) message] The system which generated this result [...] biotin. Lab Interpretation Normal (test code = 91947-8) [facility] CenterTROPONIN [id number] 02:45:00 Test Item Value Reference Range Interpretation Comments TROPONIN I (test code = 0.002 ng/mL See_Comment [Au tomated 9869517850) message] The sy stem which generated this result transmitted reference range : <=0.034. The reference range was not used to interpret this result as normal/abnormal . LYNDSAY (test code = LYNDSAY) Lab Interpretation Normal (test code = 50751-4) [facility] CenterN-TERMINAL [id number] 02:41:57 Test Item Value Reference Range Interpretation Comments NT-proBNP (test code 169 pg/mL See_Comment H [Autom ated = 1761588371) message] The system which generated this result transmitted reference range : <=125. The reference range was not used to interpret this result as normal/abnormal . LYNDSAY (test code = LYNDSAY) Biotin has been reported to cause a negative bias, interpret results relative to patient's use of biotin. Lab Interpretation Abnormal (test code = 26696-1) [facility] CenterN-TERMINAL [id number] 02:41:57 Test Item Value Reference Range Interpretation Comments NT-proBNP (test code = 169 pg/mL See_Comment H [Aut omated message] 7670461393) The system [employer] generated this result transmit sherice reference range : <=125. The refe rence range was not u sed to interpret th is result as normal/abnormal . LYNDSAY (test code = LYNDSAY) Lab Interpretation (test Abnormal code = 28751-8) [facility]. METABOLIC PANEL (68882)2021-03-17 02:09:13 Test Item Value Reference Range Interpretation Comments NA (test code = 137 mmol/L 135-145 3863659383) K (test code = 4.2 mmol/L 3.5-5.0 1266477398) CL (test code = 102 mmol/L 98-108 4712318318) CO2 TOTAL (test code = 25 mmol/L 23-31 1351819216) AGAP (test code = 2-16 3388983878) BUN (test code = 18 mg/dL 7-23 6352367450) GLUCOSE (test code = 144 mg/dL 70-110 H 4543975671) CREATININE (test code = 0.77 mg/dL 0.50-1.04 5511887786) TOTAL BILI (test code = 0.4 mg/dL 0.1-1.1 9780668949) CALCIUM (test code = 8.9 mg/dL 8.6-10.6 5047495333) T PROTEIN (test code = 6.8 g/dL 6.3-8.2 2769740552) ALBUMIN (test code = 3.9 g/dL 3.5-5.0 5819413861) ALK PHOS (test code = 84 U/L 34-122 9412039477) ALTv (test code = 13 U/L 5-35 1742-6) AST(SGOT) (test code = 17 U/L 13-40 5896816612) eGFR (test code = mL/min/1.73m2 9528200097) LYNDSAY (test code = LYNDSAY) Association of [...] tests). Lab Interpretation Abnormal (test code = 67296-7) [facility]. METABOLIC PANEL (29862)2021-03-17 02:09:13 Test Item Value Reference Range Interpretation Comments NA (test code = 8083358437) 137 mmol/L 135-145 K (test code = 0475201757) 4.2 mmol/L 3.5-5.0 CL (test code = 7713544355) 102 mmol/L 98-108 CO2 TOTAL (test code = 5846967705) 25 mmol/L 23-31 AGAP (test code = 1800281490) 2-16 BUN (test code = 1749745841) 18 mg/dL 7-23 GLUCOSE (test code = 9998634654) 144 mg/dL 70-110 H CREATININE (test code = 0.77 mg/dL 0.50-1.04 0091213000) TOTAL BILI (test code = 0.4 mg/dL 0.1-1.2 1796455327) CALCIUM (test code = 9053808940) 8.9 mg/dL 8.6-10.6 T PROTEIN (test code = 0085132423) 6.8 g/dL 6.3-8.2 ALBUMIN (test code = 7206585843) 3.9 g/dL 3.5-5.0 ALK PHOS (test code = 1488165961) 84 U/L 34-122 ALTv (test code = 1742-6) 13 U/L 5-35 AST(SGOT) (test code = 0789970231) 17 U/L 13-40 eGFR (test code = 3672785203) mL/min/1.73m2 LYNDSAY (test code = LYNDSAY) Lab Interpretation (test code = Abnormal 39524-7) [facility] WITH [id number] 01:56:33 Test Item Value Reference Range Interpretation [...] (test code = 55.5 fL 39.0-49.9 H 17034-7) RDW-CV (test code = 18.9 % 12.0-15.5 H 788-0) PLT (test code = See_Comment H [Automated 777-3) message] The sy stem which generated this result transmitted reference range : 166 - 358 10*3/ ?L. The reference r zoe was not used to interpret this result as normal/abnormal . MPV (test code = 8.2 fL 9.5-12.9 L 68474-8) NRBC/100 WBC (test See_Comment [Automat ed code = 4305433521) message] The system which generated this result transmitted reference range : 0.0 - 10.0 /100 WBCs. The refer ence range was not u sed to interpret th is result as normal/abnormal . NRBC x10^3 (test code <0.01 See_Comment [Auto mated = 5813506213) message] The s ystem which generated this result transmitted reference range : 10*3/?L. The reference range was not used to interpret this result as normal/abnormal . GRAN MAT (NEUT) % 61.7 % (test code = 770-8) IMM GRAN % (test code 0.80 % = 3132008231) LYMPH % (test code = 28.5 % 736-9) MONO % (test code = 6.3 % 5905-5) EOS % (test code = 1.8 % 713-8) BASO % (test code = 0.9 % 706-2) GRAN MAT x10^3(ANC) 7.31 10*3/uL 1.88-7.09 H (test code = 0938334415) IMM GRAN x10^3 (test 0.09 10*3/uL 0.00-0.06 H code = 0463386452) LYMPH x10^3 (test code 3.38 10*3/uL 1.32-3.29 H = 731-0) MONO x10^3 (test code 0.75 10*3/uL 0.33-0.92 = 742-7) EOS x10^3 (test code = 0.21 10*3/uL 0.03-0.39 711-2) BASO x10^3 (test code 0.11 10*3/uL 0.01-0.07 H = 704-7) Lab Interpretation Abnormal (test code = 62856-9) [facility] WITH [id number] 01:56:33 Test Item Value Reference Range Interpretation Comments WBC (test code = See_Comment H [Automated 3290-2) message] The sy stem which generated this result transmitted reference range : 4.30 - 11.10 10*3/?L. The reference range was not used to interpret this result as normal/abnormal . RBC (test code = See_Comment [Automated 289-8) message] The sy stem which generated this [...] (test code = 55.5 fL 39.0-49.9 H 59234-4) RDW-CV (test code = 18.9 % 12.0-15.5 H 788-0) PLT (test code = See_Comment H [Automated 777-3) message] The sy stem which generated this result transmitted reference range : 166 - 358 10*3/ ?L. The reference r zoe was not used to interpret this result as normal/abnormal . MPV (test code = 8.2 fL 9.5-12.9 L 53829-2) NRBC/100 WBC (test See_Comment [Automat ed code = 2058685878) message] The system which generated this result transmitted reference range : 0.0 - 10.0 /100 WBCs. The refer ence range was not u sed to interpret th is result as normal/abnormal . NRBC x10^3 (test code <0.01 See_Comment [Auto mated = 1775596288) message] The s ystem which generated this result transmitted reference range : 10*3/?L. The reference range was not used to interpret this result as normal/abnormal . GRAN MAT (NEUT) % 61.7 % (test code = 770-8) IMM GRAN % (test code 0.80 % = 5197981870) LYMPH % (test code = 28.5 % 736-9) MONO % (test code = 6.3 % 5905-5) EOS % (test code = 1.8 % 713-8) BASO % (test code = 0.9 % 706-2) GRAN MAT x10^3(ANC) 7.31 10*3/uL 1.88-7.09 H (test code = 8508672303) IMM GRAN x10^3 (test 0.09 10*3/uL 0.00-0.06 H code = 7765675552) LYMPH x10^3 (test code 3.38 10*3/uL 1.32-3.29 H = 731-0) MONO x10^3 (test code 0.75 10*3/uL 0.33-0.92 = 742-7) EOS x10^3 (test code = 0.21 10*3/uL 0.03-0.39 711-2) BASO x10^3 (test code 0.11 10*3/uL 0.01-0.07 H = 704-7) Lab Interpretation Abnormal (test code = 94172-9) [facility]-19 (ID NOW RAPID TESTING)2021-03-17 01:38:12 Test Item Value Reference Range Interpretation Comments SARS-CoV-2 Rapid ID NOW Not Detected Not Detected (test code = 08233-4) LYNDSAY (test code = LYNDSAY) ID NOW COVID-19 Assay is an isothermal nucleic acid amplification test intended for the qualitative detection of nucleic acid from SARS-CoV-2 viral RNA in nasopharyngeal (CAMP ASSISTANT) specimens. It is used under Emergency Use [...] indicated. Lab Interpretation Normal (test code = 77476-5) [facility]19 (ID NOW RAPID TESTING)2021-03-17 01:38:12 Test Item Value Reference Range Interpretation Comments SARS-CoV-2 Rapid ID NOW (test Not Detected Not Detected code = 63797-7) LYNDSAY (test code = LYNDSAY) Lab Interpretation (test code = Normal 41997-0) [facility]-19 (ID NOW RAPID TESTING)2021-02-19 17:42:45 Test Item Value Reference Range Interpretation Comments SARS-CoV-2 Rapid ID NOW Not Detected Not Detected (test code = 23545-9) LYNDSAY (test code = LYNDSAY) ID NOW COVID-19 Assay is an isothermal nucleic acid amplification test intended for the qualitative detection of nucleic acid from SARS-CoV-2 viral RNA in nasopharyngeal (CAMP ASSISTANT) specimens. It is used under Emergency Use [...] indicated. Lab Interpretation Normal (test code = 43480-6) [facility] [id number] 17:24:55Thickening of the gastric antrum and duodenal [...] nodularity of the left adrenal gland.RL: [facility] 17:03:40 Test Item Value Reference Range Interpretation Comments APPEARANCE (test code = Hazy Clear A 9043972122) COLOR (test code = Mabel Yellow A 5235310511) PH (test code = 4.8-8.0 7310948122) SP GRAVITY (test code = 1.003-1.030 H 6699063382) GLU U QUAL (test code = Normal Normal 0443264503) BLOOD (test code = Negative Negative 4935005222) KETONES (test code = 5 mg/dL Negative A 2361042853) PROTEIN (test code = 30 mg/dL Negative A 2887-8) UROBILIN (test code = 4.0 mg/dL Normal A 4097581606) BILIRUBIN (test code = 4 mg/dL Negative A 0003864690) NITRITE (test code = Negative Negative 0059667850) LEUK GRUPO (test code = Negative Negative 3122920097) RBC/HPF (test code = See_Comment H [Autom ated message] 1423280735) The system [employer] generated this result transmit sherice reference range : 0 - 3 HPF. The refe rence range was not u sed to interpret th is result as normal/abnormal . WBC/HPF (test code = See_Comment H [Autom ated message] 8308818290) The system [employer] generated this result transmit sherice reference range : 0 - 5 HPF. The refe rence range was not u sed to interpret th is result as normal/abnormal . BACTERIA (test code = Few Negative A 2314269737) MUCOUS (test code = Moderate Negative LPF A 1109918794) SQ EPITH (test code = HPF 5055479466) CA OXALATE (test code = See_Comment H [Au tomated message] 6990916016) The system [employer] generated this result transmit sherice reference range : <=1 HPF. The refere nce range was not u sed to interpret th is result as normal/abnormal . Ictotest (test code = Negative 3105753896) Lab Interpretation (test Abnormal code = 52082-7) [facility] [id number] 16:34:55 Test Item Value Reference Range Interpretation Comments NA (test code = 139 mmol/L 135-145 3005863969) K (test code = 4.3 mmol/L 3.5-5.0 9363402303) CL (test code = 105 mmol/L 98-108 9034502933) CO2 TOTAL (test code 26 mmol/L 23-31 = 1446924626) AGAP (test code = 2-16 2965798517) BUN (test code = 11 mg/dL 7-23 0743408293) GLUCOSE (test code = 95 mg/dL 70-110 5245316648) CREATININE (test code 0.70 mg/dL 0.50-1.04 = 6113453327) TOTAL BILI (test code 0.6 mg/dL 0.1-1.1 = 4020320618) CALCIUM (test code = 8.9 mg/dL 8.6-10.6 7541256152) T PROTEIN (test code 7.7 g/dL 6.3-8.2 = 5166743025) ALBUMIN (test code = 4.1 g/dL 3.5-5.0 1238913521) ALK PHOS (test code = 79 U/L 34-122 4208563553) ALTv (test code = 10 U/L 5-35 1742-6) AST(SGOT) (test code 22 U/L 13-40 = 0711529264) eGFR (test code = mL/min/1.73m2 7718117346) LYNDSAY (test code = LYNDSAY) Association of [...] or urine or abnormalities in imaging tests). [facility] [id number] 16:34:14 Test Item Value Reference Range Interpretation Comments LIPASE (test code = 3576735942) 45 U/L 0-220 Lab Interpretation (test code = Normal 78287-3) [facility] [id number] 16:21:12 Test Item Value Reference Range Interpretation [...] (test code = 54.4 fL 39.0-49.9 H 29499-3) RDW-CV (test code = 18.3 % 12.0-15.5 H 788-0) PLT (test code = See_Comment H [Automated 777-3) message] The sy stem which generated this result transmitted reference range : 166 - 358 10*3/ ?L. The reference r zoe was not used to interpret this result as normal/abnormal . MPV (test code = 8.5 fL 9.5-12.9 L 35486-0) NRBC/100 WBC (test See_Comment [Automat ed code = 5743343823) message] The system which generated this result transmitted reference range : 0.0 - 10.0 /100 WBCs. The refer ence range was not u sed to interpret th is result as normal/abnormal . NRBC x10^3 (test code <0.01 See_Comment [Auto mated = 8147363755) message] The s ystem which generated this result transmitted reference range : 10*3/?L. The reference range was not used to interpret this result as normal/abnormal . GRAN MAT (NEUT) % 78.3 % (test code = 770-8) IMM GRAN % (test code 0.40 % = 2090666511) LYMPH % (test code = 15.4 % 736-9) MONO % (test code = 4.8 % 5905-5) EOS % (test code = 0.1 % 713-8) BASO % (test code = 1.0 % 706-2) GRAN MAT x10^3(ANC) 7.15 10*3/uL 1.88-7.09 H (test code = 2574918513) IMM GRAN x10^3 (test 0.04 10*3/uL 0.00-0.06 code = 2433943114) LYMPH x10^3 (test code 1.41 10*3/uL 1.32-3.29 = 731-0) MONO x10^3 (test code 0.44 10*3/uL 0.33-0.92 = 742-7) EOS x10^3 (test code = <0.03 0.03-0.39 L 711-2) BASO x10^3 (test code 0.09 10*3/uL 0.01-0.07 H = 704-7) Lab Interpretation Abnormal (test code = 62213-1) [facility]
[2023-06-21 16:17] LABS: Protime INR 1.09
[2023-06-21] MEDS ORDERED: NITROGLYCERIN 0.4 MG/TAB SL ONE (16:19)
[2023-06-21 16:27] LABS: Bilirubin Direct 0.1 mg/dL (0-0.2); Bilirubin Indirect, Calculated 0.3 mg/dL (0.2-0.8); Bilirubin Total 0.4 mg/dL (0.2-1.0); Magnesium 2.2 mg/dL (1.6-2.4); Protein, Total 8.4 g/dL (6.4-8.2); Troponin High Sensitivity 12.3 pg/mL (<58.9)
[2023-06-21] MEDS ORDERED: ONDANSETRON 4 MG/2 ML VIAL ONE (16:52)
[2023-06-21] MEDS ORDERED: MORPHINE 4 MG/ML SYR ONE (16:52)
[2023-06-21] MEDS ORDERED: ALPRAZOLAM 0.25 MG TABLET ONE (18:02)
--- NOTE | 2023-06-21 18:06 | RAD REPORT ---
EXAM DESCRIPTION: CT - Chest For Pe Angio - 06/21/2023 5:11 pm CLINICAL HISTORY: Chest pain COMPARISON: June 12, 2023 TECHNIQUE: Dynamically enhanced axial 3 mm thick images of the chest were obtained during administra tion of 100 mL Isovue 370 IV contrast. Coronal and oblique reconstruction images were generated and r eviewed. Exam utilizes a protocol for optimal evaluation of pulmonary arterial tree. Maximum intensity projections 3D imaging was utilized All CT scans are performed using dose optimization technique as appropriate and may include automated exposure control or mA/KV adjustment according to patient size. FINDINGS: Suboptimal opacification of pulmonary arteries. No gross central pulmonary embolus A thoracic aortic aneurysm is not noted. A pleural effusion is not seen. A pericardial effusion is not seen. Multiple, bilateral pulmonary nodules have mildly decreased in size. Some are cavitary Left adrenal adenoma unchanged. Hounsfield unit -7 IMPRESSION: No gross central pulmonary embolus seen Multiple, bilateral pulmonary nodules have mildly decreased in size which indicates that they likely are infectious
--- NOTE | 2023-06-21 18:07 | RAD REPORT ---
EXAM DESCRIPTION: Lneo Single View06/21/2023 4:36 pm CLINICAL HISTORY: Chest pain COMPARISON: May 2023 FINDINGS: Multiple, bilateral pulmonary nodules have decreased in size which indicate that they like ly are infectious Heart is normal size
--- NOTE | 2023-06-21 20:50 | EDPHYS ---
Physician Documentation [facility] Name: Heather Coon Age: 53 yrs Sex: Female : 1970 Arrival Date: 06/21/2023 Time: 15:26 Bed 2 Private MD: JACKELINE Physician Derrick Santillan HPI: 06/21 15:30 This 53 yrs old Female presents to ER via EMS with complaints of chest pain, SOB. jh7 15:30 The patient or guardian reports chest pain that is located primarily in the substernal jh7 area. Onset: today. The pain does not radiate. Associated signs and symptoms: Pertinent positives: nausea, shortness of breath, seizures, Pertinent negatives: abdominal pain, cough, dizziness, headache, lightheadedness, syncope. The chest pain is described as a pressure. EMS care prior to arrival includes: aspirin, supplemental oxygen, Ativan, Phenergan. 53-year-old female presents to the ER complaining of chest pain and shortness of breath. EMS states that they gave 324 of aspirin and 12.5 of Phenergan in route. They stated that the patient then had a seizure and they gave 2 mg of Ativan IV. The patient reports that she takes Depakote for seizures and that she has been out for 1 week. History of MS x3.. Historical: - Allergies: 15:54 fluoxetine; mb9 15:54 Green Tea; mb9 15:54 Keppra; not an allergy; mb9 - Home Meds: 15:54 Folic Acid Oral [Active]; Metoprolol Tartrate Oral [Active]; lisinopril Oral [Active]; mb9 Keppra Oral [Active]; Depakote Oral [Active]; - PMHx: 15:54 Anxiety; Hypertension; Arthritis; Herniated Back Disc; Bipolar disorder; Chronic mb9 obstructive lung disease; Cancer-Cervical; Chronic pain; Congestive heart failure; Depression; Diverticulitis; intestinal mass; Myocardial infarction; pt reports hx of seizures; Spastic Muscles; stroke; - PSHx: 15:54 cervical fusion; Cholecystectomy; foot; Tonsillectomy; mb9 - Immunization history:: Adult Immunizations up to date. - Social history:: Smoking status: Patient reports the use of cigarette tobacco products, smokes one-half pack cigarettes per day. ROS: 15:30 Constitutional: Negative for fever, chills, and weight loss, jh7 15:30 Eyes: Negative for injury, pain, redness, and discharge, Neck: Negative for injury, pain, and swelling, Abdomen/GI: Negative for abdominal pain, nausea, vomiting, diarrhea, and constipation, Back: Negative for injury and pain, MS/Extremity: Negative for injury and deformity, Skin: Negative for injury, rash, and discoloration, 15:30 Cardiovascular: Positive for chest pain, 15:30 Respiratory: Positive for shortness of breath, at rest. 15:30 Neuro: Positive for seizure activity, Negative for altered mental status, gait disturbance, headache, syncope, tingling, visual changes, weakness, 15:30 Psych: Positive for anxiety, 15:30 All other systems are negative, Exam: 15:35 Head/Face: Normocephalic, atraumatic. Eyes: Pupils equal round and reactive to light, jh7 extra-ocular motions intact. Lids and lashes normal. Conjunctiva and sclera are non-icteric and not injected. Cornea within normal limits. Periorbital areas with no swelling, redness, or edema. Neck: Trachea midline, no thyromegaly or masses palpated, and no cervical lymphadenopathy. Supple, full range of motion without nuchal rigidity, or vertebral point tenderness. No Meningismus. Cardiovascular: Regular rate and rhythm with a normal S1 and S2. No gallops, murmurs, or rubs. Normal PMI, no JVD. No pulse deficits. Respiratory: Lungs have equal breath sounds bilaterally, clear to auscultation and percussion. No rales, rhonchi or wheezes noted. No increased work of breathing, no retractions or nasal flaring. Abdomen/GI: Soft, non-tender, with normal bowel sounds. No distension or tympany. No guarding or rebound. No evidence of tenderness throughout. Back: No spinal tenderness. No costovertebral tenderness. Full range of motion. Skin: Warm, dry with normal turgor. Normal color with no rashes, no lesions, and no evidence of cellulitis. MS/ Extremity: Pulses equal, no cyanosis. Neurovascular intact. Full, normal range of motion. 15:35 Constitutional: The patient appears alert, awake, anxious, 15:35 Neuro: seizure activity, Patient is rolled on her side convulsing but is able to speak and not does not become post ictal. She states that she "seizes when she experiences pain", Vital Signs: 15:30 BP 163 / 125; Pulse 120; Resp 18; Temp 97.3; Pulse Ox 100% on 2 lpm NC; Weight 90.72 mb9 kg; Height 5 ft. 2 in. ; 16:09 BP 104 / 75; Pulse 121; Resp 18; Pulse Ox 97% on R/A; mb9 17:54 BP 100 / 71; Pulse 106; Resp 16; Pulse Ox 98% on R/A; mb9 20:00 BP 105 / 80; Pulse 109; Resp 18 S; Pulse Ox 97% on R/A; jw7 15:30 Body Mass Index 36.58 (90.72 kg, 157.48 cm) mb9 MDM: 15:38 Patient medically screened. [facility] 18:17 Differential diagnosis: abnormal EKG, acute myocardial infarction, acute pericarditis, jh7 anxiety, congestive heart failure myocarditis, pericarditis, pleurisy, pneumonia, pulmonary embolus. SHILPA Risk Score: 1 - Three or more CAD risk factors, [HTN], [Elevated Cholesterol], [Active Smoker], 1 - ASA use in past 7 days, 1 - Recent [<24hrs] Severe Angina, TOTAL SCORE = 3. Data reviewed: vital signs, nurses notes. 18:21 Consideration of Admission/Observation Escalation of care including [facility] admission/observation considered. Management of patient was discussed with the following: Supervisor Chemical: Dr. Fry, hospitalist. I considered the following discharge prescriptions or medication management in the emergency department Medications were administered in the Emergency Department. See MAR. Independent interpretation of the following test(s) in the Emergency Department EKG: See my EKG interpretation above. Care significantly affected by the following chronic conditions: Hypertension, Chronic Obstructive Pulmonary Disease. Scoring Tools HEART Score: Total Score = 6. Counseling: I had a detailed discussion with the patient and/or guardian regarding the historical points, exam findings, and any diagnostic results supporting the discharge/admit diagnosis, the need for outpatient follow up, a community outreach advocate, to return to the emergency department if symptoms worsen or persist or if there are any questions or concerns that arise at home. Response to treatment: the patient's symptoms have mildly improved after treatment. ED course: Spoke to hospitalist Dr. Fry who requested repeat troponin and procalcitonin. If lab results are negative patient will be discharged with antibiotics. The patient stated that she has not picked up her antibiotics prescribed from the last time she was admitted so she was reassured that we would provide her with a prescription.. 20:49 ED course: pt left the room prior to discharge without telling staff or myself. 06/21 15:35 Order name: Basic Metabolic Panel; Complete Time: 16:33 hb 06/21 15:35 Order name: CBC with Diff; Complete Time: 16:11 hb 06/21 15:35 Order name: D-Dimer; Complete Time: 16:22 hb 06/21 15:35 Order name: LFT's; Complete Time: 16:33 hb 06/21 15:35 Order name: Magnesium; Complete Time: 16:33 hb 06/21 15:35 Order name: NT PRO-BNP; Complete Time: 16:33 hb 06/21 15:35 Order name: PT-INR; Complete Time: 16:22 hb 06/21 15:35 Order name: Troponin HS; Complete Time: 16:33 hb 06/21 18:15 Order name: Troponin High Sensitivity; Complete Time: 18:58 7 06/21 18:21 Order name: Procalcitonin; Complete Time: 20:43 7 06/21 15:35 Order name: XRAY Chest (1 view); Complete Time: 18:09 hb 06/21 16:23 Order name: CT Chest For PE Angio; Complete Time: 18:08 7 06/21 15:35 Order name: EKG; Complete Time: 15:37 hb 06/21 15:35 Order name: Cardiac monitoring; Complete Time: 15:53 hb 06/21 15:35 Order name: EKG - Nurse/Tech; Complete Time: 15:53 hb 06/21 15:35 Order name: IV Saline Lock; Complete Time: 15:53 hb 06/21 15:35 Order name: Labs collected and sent; Complete Time: 15:53 hb 06/21 15:35 Order name: O2 Per Protocol; Complete Time: 15:53 hb 06/21 15:35 Order name: O2 Sat Monitoring; Complete Time: 15:53 hb EC:32 Rate is 116 beats/min. Rhythm is regular. QRS Rodney is Normal. SC interval is normal at jh7 140 msec. QRS interval is normal at 90 msec. QT interval is normal at 358 msec. No Q waves. T waves are Normal. No ST changes noted. Clinical impression: Sinus tachycardia. Administered Medications: 15:41 Drug: Ativan IVP 2 mg IVP once Route: IVP; Site: right forearm; mb9 16:29 Follow up: Response: No adverse reaction mb9 15:55 Drug: Nitroglycerin Sublingual 0.4 mg Sublingual once Route: Sublingual; mb9 16:29 Follow up: Response: No adverse reaction mb9 16:40 Drug: Ondansetron IVP 4 mg IVP once; over 2 minutes Route: IVP; Site: right forearm; mb9 17:53 Follow up: Response: No adverse reaction mb9 16:45 Drug: morphine IVP or IV 4 mg IVP once over 4 mins Route: IVP; Infused Over: 4 mins; mb9 Site: right forearm; 17:53 Follow up: Response: No adverse reaction mb9 17:53 Drug: ALPRAZolam PO Tablet 0.25 mg PO once Route: PO; mb9 18:32 Follow up: Response: No adverse reaction mb9 Disposition Summary: 06/21/23 20:49 Discharge Ordered Notes: Location: Home kb Problem: an ongoing problem kb Symptoms: have improved kb Condition: Stable kb Diagnosis - Chest pain, unspecified kb - Generalized anxiety disorder kb - Pseudoseizures Followup: [facility] - With: Saad Leavitt MD - When: 2 - 3 days - Reason: Recheck today's complaints Discharge Instructions: - Discharge Summary Sheet jh7 - Nonspecific Chest Pain, Adult 7 - Chest Wall Pain 7 - Electrocardiogram [facility] - Generalized Anxiety Disorder, Adult [facility] - Managing Anxiety, Adult [facility] Forms: - Medication Reconciliation Form kb - Thank You Letter kb - Antibiotic Education kb - Prescription Opioid Use kb - Patient Portal Instructions kb - Leadership Thank You Letter kb Signatures: Dispatcher [employer] Chel Puga FNP-C FNP-Sabrina Winkler RN RN hb Hadash, Jennifer, FNP FNP [facility] Shy Gonzalez RN RN mb9 Corrections: (The following items were deleted from the chart) 18:23 18:17 Differential diagnosis: abnormal EKG, acute myocardial infarction, acute jh7 pericarditis, anxiety, congestive heart failure myocarditis, pericarditis, pleurisy, pneumonia, pulmonary embolus, jh7
--- NOTE | 2023-06-21 20:50 | ER ---
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 mb9 Gave 12.5 mg of Phenergan and 324 mg of Aspirin. Pt started seizing when transferring pt to ER stretcher. Gave 2 mg of Ativan via 20 g to right FA. Pt has not taken Depakote for 1 week now.". 15:30 Coronavirus screen: At this time, the client does not indicate any symptoms associated mb9 with coronavirus-19. Ebola Screen: No symptoms or risks identified at this time. Initial Sepsis Screen: Does the patient meet any 2 criteria? No. Patient's initial sepsis screen is negative. Does the patient have a suspected source of infection? No. Patient's initial sepsis screen is negative. Risk Assessment: Do you want to hurt yourself or someone else? Patient reports no desire to harm self or others. Onset of symptoms was June 21, 2023. 15:30 Method Of Arrival: EMS [facility] 15:30 Method Of Arrival: EMS: [facility] 15:30 Acuity: ANDER 2 mb9 Triage Assessment: 15:30 General: Appears uncomfortable, Behavior is anxious. Pain: Complains of pain in chest mb9 Pain radiates to jaw Pain currently is 8 out of 10 on a pain scale. Quality of pain is described as throbbing, Pain began suddenly, Is continuous. EENT: No signs and/or symptoms were reported regarding the EENT system. Neuro: Davis Agitation-Sedation Scale (RASS): 0 - Alert and Calm Level of Consciousness is awake, alert, obeys commands, Oriented to person, place, time, situation, Appropriate for age. Cardiovascular: Reports chest pain, shortness of breath, Heart tones S1 S2 present Patient's skin is warm and dry. Respiratory: Airway is patent Respiratory effort is even, unlabored, Respiratory pattern is regular, symmetrical, Breath sounds are clear bilaterally. GI: Abdomen is round non-distended, Bowel sounds present X 4 quads. Abd is soft and non tender X 4 quads. : No signs and/or symptoms were reported regarding the genitourinary system. Derm: Skin is pink, warm \\T\\ dry. Musculoskeletal: Range of motion: intact in all extremities. Historical: - Allergies: 15:54 fluoxetine; mb9 15:54 Green Tea; mb9 15:54 Keppra; not an allergy; mb9 - Home Meds: 15:54 Folic Acid Oral [Active]; Metoprolol Tartrate Oral [Active]; lisinopril Oral [Active]; mb9 Keppra Oral [Active]; Depakote Oral [Active]; - PMHx: 15:54 Anxiety; Hypertension; Arthritis; Herniated Back Disc; Bipolar disorder; Chronic mb9 obstructive lung disease; Cancer-Cervical; Chronic pain; Congestive heart failure; Depression; Diverticulitis; intestinal mass; Myocardial infarction; pt reports hx of seizures; Spastic Muscles; stroke; - PSHx: 15:54 cervical fusion; Cholecystectomy; foot; Tonsillectomy; mb9 - Immunization history:: Adult Immunizations up to date. - Social history:: Smoking status: Patient reports the use of cigarette tobacco products, smokes one-half pack cigarettes per day. Screenin:02 [facility] ED Fall Risk Assessment (Adult) History of falling in the last 3 months, mb9 including since admission No falls in past 3 months (0 pts) Confusion or Disorientation No (0 pts) Intoxicated or Sedated No (0 pts) Impaired Gait No (0 pts) Mobility Assist Device Used No (0 pt) Altered Elimination No (0 pt) Score/Fall Risk Level 0 - 2 = Low Risk Oriented to surroundings, Maintained a safe environment, Educated pt \\T\\ family on fall prevention, incl call for assistance when getting out of bed. Abuse screen: Denies threats or abuse. Nutritional screening: No deficits noted. Tuberculosis screening: No symptoms or risk factors identified. Assessment: 16:01 Reassessment: see triage assessment. mb9 16:55 Reassessment: Patient appears in no apparent distress at this time. No changes from mb9 previously documented assessment. Patient and/or family updated on plan of care and expected duration. Pain level reassessed. Patient is alert, oriented x 3, equal unlabored respirations, skin warm/dry/pink. 17:40 Reassessment: pt states, "I'm anxious and feel like something is wrong." Verbal mb9 reassurance given to pt. ERP notified. New orders at this time. 18:32 Reassessment: Patient appears in no apparent distress at this time. No changes from mb9 previously documented assessment. Patient and/or family updated on plan of care and expected duration. Pain level reassessed. Patient is alert, oriented x 3, equal unlabored respirations, skin warm/dry/pink. 19:30 Reassessment: Patient appears in no apparent distress at this time. No changes from jw7 previously documented assessment. Patient and/or family updated on plan of care and expected duration. Pain level reassessed. Patient is alert, oriented x 3, equal unlabored respirations, skin warm/dry/pink. 20:00 Reassessment: Patient appears in no apparent distress at this time. Patient is alert, jw7 oriented x 3, equal unlabored respirations, skin warm/dry/pink. Observed patient very agitated and yelling on phone. 20:15 General: went to check on pt, not in room, unable to locate . as6 Vital Signs: 15:30 BP 163 / 125; Pulse 120; Resp 18; Temp 97.3; Pulse Ox 100% on 2 lpm NC; Weight 90.72 mb9 kg; Height 5 ft. 2 in. ; 16:09 BP 104 / 75; Pulse 121; Resp 18; Pulse Ox 97% on R/A; mb9 17:54 BP 100 / 71; Pulse 106; Resp 16; Pulse Ox 98% on R/A; mb9 20:00 BP 105 / 80; Pulse 109; Resp 18 S; Pulse Ox 97% on R/A; jw7 15:30 Body Mass Index 36.58 (90.72 kg, 157.48 cm) mb9 ED Course: 15:30 Patient arrived in ED. mb9 15:38 [facility]ov[facility] Kidd F[facility]. 7 15:38 Derrick Santillan MD is Attending Physician. 7 15:38 EKG done, by ED staff, reviewed by Yovana SUAREZ. mb9 15:38 Maintain EMS IV. Dressing intact. Good blood return noted. Site clean \\T\\ dry. Gauge \\T\\ mb 9 site: 20 g to right FA. 15:52 Shy Gonzalez, RN is Primary Nurse. mb9 15:53 Basic Metabolic Panel Sent. mb9 15:53 CBC with Diff Sent. mb9 15:53 D-Dimer Sent. mb9 15:53 LFT's Sent. mb9 15:53 Magnesium Sent. mb9 15:53 NT PRO-BNP Sent. mb9 15:53 PT-INR Sent. mb9 15:53 Troponin HS Sent. mb9 15:57 Arm band placed on. mb9 16:00 Triage completed. mb9 16:02 Placed in gown. Bed in low position. Call light in reach. Side rails up X 1. Client mb9 placed on continuous cardiac and pulse oximetry monitoring. NIBP monitoring applied. truck manager on. 16:38 XRAY Chest (1 view) In Process Unspecified. EDMS 17:13 CT Chest For PE Angio In Process Unspecified. EDMS 17:54 No provider procedures requiring assistance completed. mb9 18:32 Troponin High Sensitivity Sent. mb9 18:32 Procalcitonin Sent. mb9 18:49 PHCP role handed off by Yovana Kidd FNP kb 18:49 Chel Esteban FNP-C is PHCP. kb 19:04 Report given to Bryson. mb9 20:49 Saad Leavitt MD is Referral Physician. kb Administered Medications: 15:41 Drug: Ativan IVP 2 mg IVP once Route: IVP; Site: right forearm; mb9 16:29 Follow up: Response: No adverse reaction mb9 15:55 Drug: Nitroglycerin Sublingual 0.4 mg Sublingual once Route: Sublingual; mb9 16:29 Follow up: Response: No adverse reaction mb9 16:40 Drug: Ondansetron IVP 4 mg IVP once; over 2 minutes Route: IVP; Site: right forearm; mb9 17:53 Follow up: Response: No adverse reaction mb9 16:45 Drug: morphine IVP or IV 4 mg IVP once over 4 mins Route: IVP; Infused Over: 4 mins; mb9 Site: right forearm; 17:53 Follow up: Response: No adverse reaction mb9 17:53 Drug: ALPRAZolam PO Tablet 0.25 mg PO once Route: PO; mb9 18:32 Follow up: Response: No adverse reaction mb9 Medication: 16:02 VIS not applicable for this client. mb9 Outcome: 20:49 Discharge ordered by MD. johns 20:50 Discharged to home ambulatory, as6 20:50 Condition: stable 20:50 Discharge instructions given to pt left before receiving discharge instructions 20:51 Patient left the ED. as6 Signatures: Dispatcher [employer] EDMS Chel Esteban, DANIELA-Adi SUAREZ-Jonathan Palmer RN RN as6 Fauzia Nugent RN RN jw7 Yovana Kidd FNP FNP 7 Shy Gonzalez RN RN mb9 Corrections: (The following items were deleted from the chart) 17:54 17:26 Pulse 107bpm; Resp 16bpm; Pulse Ox 98% RA; mb9 mb9 20:33 20:30 Reassessment: Patient appears in no apparent distress at this time. No changes jw7 from previously documented assessment. Patient and/or family updated on plan of care and expected duration. Pain level reassessed. Patient is alert, oriented x 3, equal unlabored respirations, skin warm/dry/pink. jw7
[2023-06-21 21:14] VITALS: TEMP 97.3
[2023-06-21 21:19] VITALS: BP 105/80; O2SAT 97
--- NOTE | 2023-06-23 13:35 | EKG ---
Test Date: 2023-06-21 Test Time: 15:32:39 [employer]crete Journeyman: MB MEASUREMENT RESULTS: Intervals: Rate: 116 MO: 140 QRSD: 90 QT: 358 QTc: 497 [place]ade: P: 61 MO: 140 QRS: 59 T: 51 INTERPRETIVE STATEMENTS: Sinus tachycardia Right atrial enlargement Borderline ECG Compared to ECG 05/15/2023 12:16:06 Sinus rhythm no longer present ST (T wave) deviation no longer present Prolonged QT interval no longer present Electronically Signed On 06-23-23 13:28:25 GERMAN TUTOR by Saad Leavitt
== END 2023-06-21 20:51 | disposition home or self-care (01) ==
LOC: ER 15:26
DX: R07.89 Other chest pain (principal); F41.1 Generalized anxiety disorder; R56.9 Unspecified convulsions; I10 Essential (primary) hypertension; F31.9 Bipolar disorder, unspecified; F17.210 Nicotine dependence, cigarettes, uncomplicated; Z88.8 Allergy status to other drugs, medicaments and biological substances; Z91.018 Allergy to other foods
CPT/HCPCS: 93005; 85025; 80048; 36415; 83735; 85610; 85379; 80076; 84484 ×2; 84145; 83880; 71275; 71045; 96375; 96374; 99285; Q9967; J2405

== ENCOUNTER → 2023-07-13 | Emergency (ER) | payer OTHER ==
[~2023-07-13] MED LIST: KETOROLAC 30 MG/ML INJ ONE; LIDOCAINE 4% PATCH ONE
--- OUTSIDE RECORDS SUMMARY | 2023-07-13 15:40 | XMS REPORT | Continuity of Care Document ---
Author Name Unknown Address [address] [facility] [place] [address] [facility] Address [address] [facility] [place] [address] Care Team Providers Care Fitness Instructor Name Role Phone MyahayleeAneta Guerrero Primary Care Physician [phone] AYDEE GO Attending Clinician Unavailable CARA BURGESS Attending Clinician Unavailab ADAM Cabrera Attending Clinician Unavailable THOMAS LOZOYA Attending Clinician Nina MARIAH Quiroga Attending Clinician Unavailable Cara Burgess MD Attending Clinician [phone] Aydee Go MD Attending Clinician [phone] System, Provider Not In Attending Clinician Unav Dallas lAlen Attending Clinician UnavailAdam Vasques MD Attending Clinician [phone] Harry Newsome MD Attending Clinician [phone] Antwon Cote MD Attending Clinician [phone]- [phone] Ramya MD, Yue Dumont Attending Clinician [phone] Tamica ELIZONDO, Connie Antonio Attending Clinician [phone] Jasen ELIZONDO, Mariah Attending Clinician [phone] Devora ELIZONDO, Thomas Hopkins Attending Clinician CONNIE DAVEY Attending Clinician Unavailекатерина ALVARADO, Alfonso MOSELEY Attending Clinician Unavailable Jennyshannon MITTAL, Alfonso Moseley Attending Clinician [phone] RITCHIE WARREN Attending Clinician Unavailable Briana ELIZONDO, Ritchie Stoner Attending Clinician [phone] Rk CAMPOS, Shy Stoner Attending Clinician [phone] PARRISH WHEATLEY Attending Clinician Unavaila yaya Mendoza MD, Halima Hummel Attending Clinician [phone] Lucho ELIZONDO, Jen Olivia Attending Clinician [phone] Roxi ELIZONDO, Parrish Reyez Attending Clinici an LORENZA LOWRY Attending Clinician Unavailable Sav Rondon MD Attending Clinician [phone] Lorenza Lowry MD Attending Clinician [phone] Maria Teresa Nicole LVN Attending Clinician [phone] CHANTEL BOJORQUEZ Attending Clinician CHANTEL Kelly Attending Clinician Jack Ibrahim MD, Brandyn Otoole Attending Clinician [phone] SELINA MARTINES Attending Clinician Unavailable Sapna Vargas DO Attending Clinician [phone] Tyrel ELIZONDO, Glory Katz Attending Clinician + Selina Martines MD Attending Clinician [phone] Chung Graham Attending Clinician U chelsi Pak MD, Jose Attending Clinician [phone] JOSE PAK Attending Clinician Unavailable NICHELLE VIRK Attending Clinician Unavaila Nichelle Lakhani Attending Clinician Doctor Unassigned, Rowlett Attending Clinician U chelsi Nava RN, Miky Attending Clinician Unavailab monroe SUAREZ Fabrice Attending Clinician [phone] Deo AUTOMOTIVE INSTRUCTOR, Lydia Attending Clinician [phone] Unknown, Attending Attending Clinician Unavailab le UNKNOWN, ATTENDING Attending Clinician Unavailab Anali Berg Attending Clinician [phone] Yehuda Arcos MD Attending Clinician [phone] CARA BURGESS Admitting Clinician Unavailab ADAM Cabrera Admitting Clinician Unavailable MARIAH ALDRIDGE Admitting Clinician Unavailable CONNIE DAVEY Admitting Clinician UnavailAlfonso Oh Admitting Clinician Unavailable RITCHIE WARREN Admitting Clinician Unavailable JEN GELLER Admitting Clinician Unavaila LORENZA Mariscal Admitting Clinician Unavailable Lorenza Lowry MD Admitting Clinician [phone] BRANDYN IBRAHIM Admitting Clinician Unavailable Brandyn Ibrahim MD Admitting Clinician [phone] GLORY ESTEVES Admitting Clinician Unav NICHELLE Padron Admitting Clinician Unavaila yaya Payers Payer Name Policy Type Policy Number Effective Date Expirati on Date Source MARVINVENKATTerry [id number] 2023 00:00:00 MEDICAID PENDING PENDING 2022 00:00:00 Problems Condition Name Condition Details Condition Category Status Onset Date Resolution Date Last Treatment Date Treating Clinician Comments Source Bilateral leg weakness Bilateral leg weakness Disease Active 2022-07 00:00: 00 [facility] Pneumonia Pneumonia Disease Active 2022-07 00:00: 00 [facility] Cavitary lesion of lung Cavitary lesion of lung Disease Active 2022-07 00:00: 00 [facility] Cervical myelopathy Cervical myelopathy Disease Recurre nce 2022-07 00:00: 00 [facility] Cervical disc disorder Cervical disc disorder Disease Active 2022-07 00:00: 00 [facility] Cord compressio n Cord compressio n Disease Recurre nce 0 9-11 00:00: 00 [facility] Cauda equina compressio n Cauda equina compressio n Disease Recurre nce 0 9-11 00:00: 00 [facility] Seizure Seizure Disease Recurre iae 1-14 00:00: 00 [facility] Cardiomyop athy Cardiomyop athy Disease Active 08-01 00:00: [address] [facility] NSVT (nonsustai keisha ventricula r tachycardi a) NSVT (nonsustai keisha ventricula r tachycardi a) Disease Active 08-01 00:00: 00 [facility] Chest pain, unspecifie d type Chest pain, unspecifie d type Disease Active 07-31 00:00: 00 [facility] Elevated brain natriureti c peptide (BNP) level Elevated brain natriureti c peptide (BNP) level Disease Active 07-31 00:00: 00 [facility] Coronary artery disease involving north fork coronary artery of north fork heart without angina pectoris Coronary artery disease involving north fork coronary artery of north fork heart without angina pectoris Disease Active 07-31 00:00: 00 [facility] Snores Snores Disease Active 07-31 00:00: 00 [facility] Cigarette smoker Cigarette smoker Disease Active 07-31 00:00: 00 [facility] Primary hypertensi on Primary hypertensi on Disease Active 07-31 00:00: 00 [facility] Other hyperlipid emia Other hyperlipid emia Disease Active 07-31 00:00: 00 [facility] Coronary artery disease involving north fork coronary artery of north fork heart without angina pectoris Coronary artery disease involving north fork coronary artery of north fork heart without angina pectoris Disease Active 07-31 00:00: 00 [facility] Chronic bilateral low back pain with bilateral sciatica Chronic bilateral low back pain with bilateral sciatica Disease Active 2021-07 0-17 00:00: 00 [facility] 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 Disease Active 04-15 00:00: 00 [facility] Neuroforam inal stenosis of cervical spine Neuroforam inal stenosis of cervical spine Disease Active 04-15 00:00: 00 [facility] Stroke-lik e symptoms Stroke-lik e symptoms Disease Active 04-13 00:00: 00 [facility] Bipolar disorder, in partial remission, most recent episode manic Bipolar disorder, in partial remission, most recent episode manic Disease Active 09-27 00:00: 00 [facility] Neuroforam inal stenosis of lumbar spine Neuroforam inal stenosis of lumbar spine Disease Active 09-27 00:00: 00 [facility] Bilateral acute otitis media, recurrence not specified, unspecifie d otitis media type Bilateral acute otitis media, recurrence not specified, unspecifie d otitis media type Disease Active 09-27 00:00: 00 [facility] Lumbar spinal stenosis Lumbar spinal stenosis Disease Active 09-27 00:00: 00 [facility] Right-side d low back pain with sciatica, sciatica laterality unspecifie d Right-side d low back pain with sciatica, sciatica laterality unspecifie d Disease Active 09-27 00:00: 00 [facility] Generalize d anxiety disorder Generalize d anxiety disorder Disease Active 09-27 00:00: 00 [facility] Agoraphobi a Agoraphobi a Disease Active 09-27 00:00: 00 [facility] Bipolar disorder, in partial remission, most recent episode manic Bipolar disorder, in partial remission, most recent episode manic Disease Active 09-27 00:00: 00 [facility] Obsessive compulsive disorder Obsessive compulsive disorder Disease Active 09-27 00:00: 00 [facility] Breast mass, left Breast mass, left Disease Active 09-17 00:00: 00 [facility] Anxiety Anxiety Disease Active 09-17 00:00: 00 [facility] Lower back pain Lower back pain Disease Active 09-17 00:00: 00 [facility] High blood pressure High blood pressure Disease Active 09-17 00:00: 00 [facility] COPD (chronic obstructiv e pulmonary disease) COPD (chronic obstructiv e pulmonary disease) Disease Active 09-17 00:00: 00 [facility] Obesity Obesity Disease Active 09-17 00:00: 00 [facility] Allergies, Adverse Reactions, Alerts Allergy Name Allergy Type Status Severity Reaction(s) Onset Date Inactive Date Treating Clinician Comments Source FLUOXETI NE Allergy Active 03-29 00:00: 00 [facility] GREEN TEA Allergy Active High Other - 00:00: 00 [facility] LEVETIRA CETAM Allergy Active High N\\T\\V - 00:00: 00 [facility] Fluoxeti ne Propensi ty to adverse reaction s Active - 00:00: 00 [facility] Green Tea Propensi ty to adverse reaction s Active - 00:00: 00 Seizure like activity [facility] Levetira cetam Propensi ty to adverse reaction s Active Nausea And Vomiting - 00:00: 00 Intensifi es seizure [facility] Green Tea Drug Allergy Active Other (See Comments) - 00:00: 00 Seizure like activity [facility] Levetira cetam Drug Allergy Active Nausea And Vomiting - 00:00: 00 Intensifi es seizure [facility] LEVETIRA CETAM DRUG INGREDI Active Other-Cmnt - 00:00: 00 [facility] Levetira cetam Propensi ty to adverse reaction s Active Other - See comments 11-17 00:00: 00 Makes seizures worse [facility] FLUOXETI NE Allergy Active Med Rash 1-14 00:00: 00 [facility] Green Tea Propensi ty to adverse reaction s Active 14 00:00: 00 [facility] Fluoxeti ne Propensi ty to adverse reaction s Active Rash 08-02 00:00: 00 [facility] GREEN TEA Allergy Active 08-02 00:00: 00 [facility] Fluoxeti ne Propensi ty to adverse reaction s Active Unknown - See comments 03-25 00:00: 00 [facility] FLUOXETI NE DRUG INGREDI Active Unknown-Cmnt 03-25 00:00: 00 [facility] DICLOFEN AC DRUG INGREDI Active HYPERTENSION 11-20 00:00: 00 [facility] Diclofen ac Propensi ty to adverse reaction s Active Hypertension 11-20 00:00: 00 [facility] GREEN TEA DRUG INGREDI Active Med Other-Cmnt 08-10 00:00: 00 [facility] Green Tea Propensi ty to adverse reaction s to drug Active Other - See comments 08-10 00:00: 00 Seizures [facility] FLUOXETI NE HCL DRUG INGREDI Active Hives 03-19 00:00: 00 [facility] Fluoxeti ne Hcl Propensi ty to adverse reaction s Active Hives 03-19 00:00: 00 [facility] Family History Family Member Diagnosis Comments Start Date Stop Date Sourc e Natural mother Alcohol abuse [facility] Natural mother Cancer [facility] Natural mother Diabetes [facility] Natural mother Heart disease [facility] Natural mother Hyperlipidemia [facility] Natural mother Kidney disease [facility] Natural mother Stroke [facility] Natural mother Alcohol abuse [facility] Natural mother Stroke [facility] Paternal uncle Diabetes [facility] Social History Social Habit Start Date Stop Date Quantity Comments Source History SDOH Alcohol Frequency [facility] History SDOH Alcohol Std Drinks [facility] History SDOH Alcohol Binge [facility] History SDOH Housing Homeless Last Year [facility] Sexual orientation C [facility] History SDOH Social Connections Get Together [facility] History SDOH Social Connections Worship [facility] History SDOH Social Connections Membership [facility] History SDOH Social Connections Meetings [facility] Alcohol intake 2023-06-02 00:00:00 2023-06-02 00:00:00 .57 /d [facility] Exposure to SARS-CoV-2 (event) 2023-05-18 00:00:00 2023-05-28 07:28:00 Not sure [facility] Cigarettes smoked current (pack per day) - Reported 2023-05-26 00:00:00 2023-05-26 00:00:00 [facility] Cigarette pack-years 2023-05-26 00:00:00 2023-05-26 00:00:00 [facility] History SDOH Housing Unable to Pay - In the last 12 months, was there a time when you were not able to pay the mortgage or rent on time? 2023-05-26 00:00:00 2023-05-26 00:00:00 Yes [facility] History of Social function 2023-05-26 00:00:00 2023-05-26 00:00:00 [facility] History of tobacco use 1987-05-22 00:00:00 2023-05-22 00:00:00 Cigarette Smoker [facility] History SDOH Housing Places Lived 2023-03-30 00:00:00 2023-03-30 00:00:00 1 [facility] Alcohol Comment 2023-03-29 00:00:00 2023-03-29 00:00:00 2x a week [facility] History SDOH Social Connections Phone 2022-08-01 00:00:00 2022-08-01 00:00:00 5 [facility] History SDOH Social Connections Living 2022-08-01 00:00:00 2022-08-01 00:00:00 5 [facility] History SDOH Physical Activity DPW 2022-08-01 00:00:2022-08-01 00:00:00 0 [facility] History SDOH Physical Activity MPS 2022-08-01 00:00:00 2022-08-01 00:00:00 0 [facility] History SDOH Financial 2022-08-01 00:00:00 2022-08-01 00:00:00 3 [facility] History SDOH Food Worry 2022-08-01 00:00:00 2022-08-01 00:00:00 1 [facility] History SDOH Food Scarcity 2022-08-01 00:00:00 2022-08-01 00:00:00 1 [facility] History SDOH Transport Med 2022-08-01 00:00:00 2022-08-01 00:00:00 2 [facility] History SDOH Transport Non-Med 2022-08-01 00:00:00 2022-08-01 00:00:00 2 [facility] Tobacco use and exposure 2022-07-31 00:00:00 2022-07-31 00:00:00 Smokeless tobacco non-user [facility] Education 2022-07-31 00:00:00 2022-07-31 00:00:00 14 [facility] Sex Assigned At 1970 00:00:00 1970 00:00:00 [facility] Smoking Status Start Date Stop Date Source Ex-smoker 2023-05-26 00:00:00 2023-05-26 00:00:00 [facility] Smokes tobacco daily 2023-03-29 00:00:00 [facility] Medications Ordered Medication Name Filled Medication Name Start Date Stop Date Current Medication? Ordering Clinician Indication Dosage Frequency Signature (SIG) Comments Components Source tamsulosin (FLOMAX) 0.4 mg Cap 24 hr capsule 2022-07 00:00: 00 06-22 23:59 :00 Yes .4mg QD Take 1 capsule (0.4 mg total) by mouth daily for 5 days. [facility] tamsulosin (FLOMAX) 0.4 mg Cap 24 hr capsule 2022-07 00:00: 00 06-22 23:59 :00 Yes .4mg QD Take 1 capsule (0.4 mg total) by mouth daily for 5 days. [facility] metoprolol succinate (TOPROL-XL) 25 MG 24 hr tablet 2022-07 19:45: 32 Yes 25mg QD Take 1 tablet (25 mg total) by mouth daily. [facility] varenicline (CHANTIX) 1 mg tablet 2022-07 19:45: 32 Yes 1mg Q.5D Take 1 tablet (1 mg total) by mouth 2 (two) times daily Give with meals and with a full glass of water.. [facility] albuterol HFA (VENTOLIN HFA) 90 mcg/actuati on inhaler 2022-07 19:45: 32 Yes 1{puff} Inhale 1 puff by mouth via inhaler every 6 (six) hours as needed for Wheezing. [facility] fluticasone -umeclidin- vilanter (Trelegy Ellipta) 200-62.5-25 mcg DsDv 2022-07 19:45: 32 Yes QD Inhale by mouth via inhaler daily. [facility] atorvastati n (LIPITOR) 20 MG tablet 2022-07 19:45: 32 Yes 20mg QD Take 1 tablet (20 mg total) by mouth daily. [facility] metoprolol succinate (TOPROL-XL) 25 MG 24 hr tablet 2022-07 19:45: 32 Yes 25mg QD Take 1 tablet (25 mg total) by mouth daily. [facility] varenicline (CHANTIX) 1 mg tablet 2022-07 19:45: 32 Yes 1mg Q.5D Take 1 tablet (1 mg total) by mouth 2 (two) times daily Give with meals and with a full glass of water.. [facility] albuterol HFA (VENTOLIN HFA) 90 mcg/actuati on inhaler 2022-07 19:45: 32 Yes 1{puff} Inhale 1 puff by mouth via inhaler every 6 (six) hours as needed for Wheezing. [facility] fluticasone -umeclidin- vilanter (Trelegy Ellipta) 200-62.5-25 mcg DsDv 2022-07 19:45: 32 Yes QD Inhale by mouth via inhaler daily. [facility] atorvastati n (LIPITOR) 20 MG tablet 2022-07 19:45: 32 Yes 20mg QD Take 1 tablet (20 mg total) by mouth daily. [facility] acetaminoph en-codeine (TYLENOL #3) 300-30 mg per tablet 2022-07 18:02: 00 06-16 00:00 :00 No 1{tbl} Take 1 tablet by mouth every 4 (four) hours as needed for Pain. [facility] acetaminoph en-codeine (TYLENOL #3) 300-30 mg per tablet 2022-07 18:02: 00 06-16 00:00 :00 No 1{tbl} Take 1 tablet by mouth every 4 (four) hours as needed for Pain. [facility] DULoxetine (CYMBALTA) 30 MG capsule 2022-07 00:00: 00 09-14 23:59 :00 Yes 30mg QD Take 1 capsule (30 mg total) by mouth daily for 90 days. [facility] DULoxetine (CYMBALTA) 30 MG capsule 2022-07 00:00: 00 09-14 23:59 :00 Yes 30mg QD Take 1 capsule (30 mg total) by mouth daily for 90 days. [facility] metroNIDAZO LE (FLAGYL) 500 MG tablet 2022-07 00:00: 00 07-04 23:59 :00 Yes 500mg Take 1 tablet (500 mg total) by mouth every 8 (eight) hours for 18 days. [facility] ciprofloxac in HCl (CIPRO) 500 MG tablet 2022-07 00:00: 00 07-04 23:59 :00 Yes 500mg Q.5D Take 1 tablet (500 mg total) by mouth 2 (two) times daily for 18 days. [facility] metroNIDAZO LE (FLAGYL) 500 MG tablet 2022-07 00:00: 07-04 23:59 :00 Yes 500mg Take 1 tablet (500 mg total) by mouth every 8 (eight) hours for 18 days. [facility] ciprofloxac in HCl (CIPRO) 500 MG tablet 2022-07 00:00: 00 07-04 23:59 :00 Yes 500mg Q.5D Take 1 tablet (500 mg total) by mouth 2 (two) times daily for 18 days. [facility] cyclobenzap rine (FLEXERIL) 10 MG tablet 2022-07 00:00: 00 06-26 23:59 :00 Yes 10mg Q.[id number] 3D Take 1 tablet (10 mg total) by mouth 3 (three) times daily for 10 days. [facility] oxyCODONE (OXY-IR) 10 mg tablet 2022-07 00:00: 00 06-26 23:59 :00 Yes 10mg Take 1 tablet (10 mg total) by mouth every 8 (eight) hours as needed for up to 10 days. Max Daily Amount: 30 mg [facility] cyclobenzap rine (FLEXERIL) 10 MG tablet 2022-07 00:00: 00 06-26 23:59 :00 Yes 10mg Q.[id number] 3D Take 1 tablet (10 mg total) by mouth 3 (three) times daily for 10 days. [facility] oxyCODONE (OXY-IR) 10 mg tablet 2022-07 00:00: 00 06-26 23:59 :00 Yes 10mg Take 1 tablet (10 mg total) by mouth every 8 (eight) hours as needed for up to 10 days. Max Daily Amount: 30 mg [facility] nystatin (MYCOSTATIN ) 100,000 unit/mL suspension 2022-07 00:00: 00 06-21 23:59 :00 Yes [id number] Q.25D Take 5 mLs (500,000 Units total) by mouth 4 (four) times daily for 5 days. [facility] nystatin (MYCOSTATIN ) 100,000 unit/mL suspension 2022-07 00:00: 00 06-21 23:59 :00 Yes [id number] Q.25D Take 5 mLs (500,000 Units total) by mouth 4 (four) times daily for 5 days. [facility] dexAMETHaso ne (DECADRON) 2 MG tablet 2022-07 00:00: 00 06-08 23:59 :00 Yes 1mg Take 0.5 tablets (1 mg total) by mouth 2 (two) times daily with breakfast and dinner for 2 days. [facility] dexAMETHaso ne (DECADRON) 2 MG tablet 2022-07 00:00: 00 06-08 23:59 :00 Yes 1mg Take 0.5 tablets (1 mg total) by mouth 2 (two) times daily with breakfast and dinner for 2 days. [facility] dexAMETHaso ne (DECADRON) 2 MG tablet 2022-07 00:00: 00 06-08 23:59 :00 No 1mg Take 0.5 tablets (1 mg total) by mouth 2 (two) times daily with breakfast and dinner for 2 days. [facility] dexAMETHaso ne (DECADRON) 2 MG tablet 2022-07 00:00: 00 06-08 23:59 :00 No 1mg Take 0.5 tablets (1 mg total) by mouth 2 (two) times daily with breakfast and dinner for 2 days. [facility] dexAMETHaso ne (DECADRON) 2 MG tablet 2022-07 00:00: 00 06-08 23:59 :00 No 1mg Take 0.5 tablets (1 mg total) by mouth 2 (two) times daily with breakfast and dinner for 2 days. [facility] dexAMETHaso ne (DECADRON) 2 MG tablet 2022-07 00:00: 00 06-06 23:59 :00 Yes 2mg Take 1 tablet (2 mg total) by mouth 2 (two) times daily with breakfast and dinner for 1 day. [facility] dexAMETHaso ne (DECADRON) 2 MG tablet 2022-07 00:00: 00 06-06 23:59 :00 Yes 2mg Take 1 tablet (2 mg total) by mouth 2 (two) times daily with breakfast and dinner for 1 day. [facility] dexAMETHaso ne (DECADRON) 2 MG tablet 2022-07 00:00: 00 06-06 23:59 :00 No 2mg Take 1 tablet (2 mg total) by mouth 2 (two) times daily with breakfast and dinner for 1 day. [facility] dexAMETHaso ne (DECADRON) 2 MG tablet 2022-07 00:00: 00 06-06 23:59 :00 No 2mg Take 1 tablet (2 mg total) by mouth 2 (two) times daily with breakfast and dinner for 1 day. [facility] dexAMETHaso ne (DECADRON) 2 MG tablet 2022-07 00:00: 00 06-06 23:59 :00 No 2mg Take 1 tablet (2 mg total) by mouth 2 (two) times daily with breakfast and dinner for 1 day. [facility] metoprolol succinate (TOPROL-XL) 25 MG 24 hr tablet 2022-07 17:44: 21 Yes 25mg QD Take 1 tablet (25 mg total) by mouth daily. [facility] varenicline (CHANTIX) 1 mg tablet 2022-07 17:44: 21 Yes 1mg Q.5D Take 1 tablet (1 mg total) by mouth 2 (two) times daily Give with meals and with a full glass of water.. [facility] albuterol HFA (VENTOLIN HFA) 90 mcg/actuati on inhaler 2022-07 17:44: 21 Yes 1{puff} Inhale 1 puff by mouth via inhaler every 6 (six) hours as needed for Wheezing. [facility] fluticasone -umeclidin- vilanter (Trelegy Ellipta) 200-62.5-25 mcg DsDv 2022-07 17:44: 21 Yes QD Inhale by mouth via inhaler daily. [facility] atorvastati n (LIPITOR) 20 MG tablet 2022-07 17:44: 21 Yes 20mg QD Take 1 tablet (20 mg total) by mouth daily. [facility] acetaminoph en-codeine (TYLENOL #3) 300-30 mg per tablet 2022-07 17:44: 21 Yes 1{tbl} Take 1 tablet by mouth every 4 (four) hours as needed for Pain. [facility] metoprolol succinate (TOPROL-XL) 25 MG 24 hr tablet 2022-07 17:44: 21 Yes 25mg QD Take 1 tablet (25 mg total) by mouth daily. [facility] varenicline (CHANTIX) 1 mg tablet 2022-07 17:44: 21 Yes 1mg Q.5D Take 1 tablet (1 mg total) by mouth 2 (two) times daily Give with meals and with a full glass of water.. [facility] albuterol HFA (VENTOLIN HFA) 90 mcg/actuati on inhaler 2022-07 17:44: 21 Yes 1{puff} Inhale 1 puff by mouth via inhaler every 6 (six) hours as needed for Wheezing. [facility] fluticasone -umeclidin- vilanter (Trelegy Ellipta) 200-62.5-25 mcg DsDv 2022-07 17:44: 21 Yes QD Inhale by mouth via inhaler daily. [facility] atorvastati n (LIPITOR) 20 MG tablet 2022-07 17:44: 21 Yes 20mg QD Take 1 tablet (20 mg total) by mouth daily. [facility] acetaminoph en-codeine (TYLENOL #3) 300-30 mg per tablet 2022-07 17:44: 21 Yes 1{tbl} Take 1 tablet by mouth every 4 (four) hours as needed for Pain. [facility] metoprolol succinate (TOPROL-XL) 25 MG 24 hr tablet 2022-07 17:44: 21 Yes 25mg QD Take 1 tablet (25 mg total) by mouth daily. [facility] varenicline (CHANTIX) 1 mg tablet 2022-07 17:44: 21 Yes 1mg Q.5D Take 1 tablet (1 mg total) by mouth 2 (two) times daily Give with meals and with a full glass of water.. [facility] albuterol HFA (VENTOLIN HFA) 90 mcg/actuati on inhaler 2022-07 17:44: 21 Yes 1{puff} Inhale 1 puff by mouth via inhaler every 6 (six) hours as needed for Wheezing. [facility] fluticasone -umeclidin- vilanter (Trelegy Ellipta) 200-62.5-25 mcg DsDv 2022-07 17:44: 21 Yes QD Inhale by mouth via inhaler daily. [facility] atorvastati n (LIPITOR) 20 MG tablet 2022-07 17:44: 21 Yes 20mg QD Take 1 tablet (20 mg total) by mouth daily. [facility] acetaminoph en-codeine (TYLENOL #3) 300-30 mg per tablet 2022-07 17:44: 21 Yes 1{tbl} Take 1 tablet by mouth every 4 (four) hours as needed for Pain. [facility] senna (SENOKOT) 8.6 mg tablet 2022-07 00:00: 00 06-18 23:59 :00 Yes 17.2mg Q.5D Take 2 tablets (17.2 mg total) by mouth 2 (two) times daily for 14 days. [facility] senna (SENOKOT) 8.6 mg tablet 2022-07 00:00: 00 06-18 23:59 :00 Yes 17.2mg Q.5D Take 2 tablets (17.2 mg total) by mouth 2 (two) times daily for 14 days. [facility] senna (SENOKOT) 8.6 mg tablet 2022-07 00:00: 00 06-18 23:59 :00 Yes 17.2mg Q.5D Take 2 tablets (17.2 mg total) by mouth 2 (two) times daily for 14 days. [facility] senna (SENOKOT) 8.6 mg tablet 2022-07 00:00: 00 06-18 23:59 :00 Yes 17.2mg Q.5D Take 2 tablets (17.2 mg total) by mouth 2 (two) times daily for 14 days. [facility] senna (SENOKOT) 8.6 mg tablet 2022-07 00:00: 00 06-18 23:59 :00 No 17.2mg Q.5D Take 2 tablets (17.2 mg total) by mouth 2 (two) times daily for 14 days. [facility] cyclobenzap rine (FLEXERIL) 10 MG tablet 2022-07 00:00: 00 06-16 00:00 :00 No 10mg Q.[id number] 3D Take 1 tablet (10 mg total) by mouth 3 (three) times daily for 10 days. [facility] methocarbam oL (ROBAXIN) 500 MG tablet 2022-07 00:00: 00 06-16 00:00 :00 No 500mg Q.25D Take 1 tablet (500 mg total) by mouth 4 (four) times daily for 10 days. [facility] cyclobenzap rine (FLEXERIL) 10 MG tablet 2022-07 00:00: 00 06-16 00:00 :00 No 10mg Q.[id number] 3D Take 1 tablet (10 mg total) by mouth 3 (three) times daily for 10 days. [facility] methocarbam oL (ROBAXIN) 500 MG tablet 2022-07 00:00: 00 06-16 00:00 :00 No 500mg Q.25D Take 1 tablet (500 mg total) by mouth 4 (four) times daily for 10 days. [facility] cyclobenzap rine (FLEXERIL) 10 MG tablet 2022-07 00:00: 00 06-14 23:59 :00 Yes 10mg Q.[id number] 3D Take 1 tablet (10 mg total) by mouth 3 (three) times daily for 10 days. [facility] methocarbam oL (ROBAXIN) 500 MG tablet 2022-07 00:00: 00 06-14 23:59 :00 Yes 500mg Q.25D Take 1 tablet (500 mg total) by mouth 4 (four) times daily for 10 days. [facility] cyclobenzap rine (FLEXERIL) 10 MG tablet 2022-07 00:00: 00 06-14 23:59 :00 Yes 10mg Q.[id number] 3D Take 1 tablet (10 mg total) by mouth 3 (three) times daily for 10 days. [facility] methocarbam oL (ROBAXIN) 500 MG tablet 2022-07 00:00: 00 06-14 23:59 :00 Yes 500mg Q.25D Take 1 tablet (500 mg total) by mouth 4 (four) times daily for 10 days. [facility] cyclobenzap rine (FLEXERIL) 10 MG tablet 2022-07 00:00: 00 06-14 23:59 :00 Yes 10mg Q.[id number] 3D Take 1 tablet (10 mg total) by mouth 3 (three) times daily for 10 days. [facility] methocarbam oL (ROBAXIN) 500 MG tablet 2022-07 00:00: 00 06-14 23:59 :00 Yes 500mg Q.25D Take 1 tablet (500 mg total) by mouth 4 (four) times daily for 10 days. [facility] lactulose (CHRONULAC) 20 gram/30 mL solution 2022-07 00:00: 00 06-11 23:59 :00 Yes 20g Q.[id number] 3D Take 30 mLs (20 g total) by mouth 3 (three) times daily for 7 days. [facility] ondansetron (ZOFRAN-ODT ) 4 MG disintegrat ing tablet 2022-07 00:00: 00 06-11 23:59 :00 Yes 4mg Take 1 tablet (4 mg total) by mouth every 6 (six) hours as needed for up to 7 days. [facility] lactulose (CHRONULAC) 20 gram/30 mL solution 2022-07 00:00: 00 06-11 23:59 :00 Yes 20g Q.[id number] 3D Take 30 mLs (20 g total) by mouth 3 (three) times daily for 7 days. [facility] ondansetron (ZOFRAN-ODT ) 4 MG disintegrat ing tablet 2022-07 00:00: 00 06-11 23:59 :00 Yes 4mg Take 1 tablet (4 mg total) by mouth every 6 (six) hours as needed for up to 7 days. [facility] lactulose (CHRONULAC) 20 gram/30 mL solution 2022-07 00:00: 00 06-11 23:59 :00 No 20g Q.[id number] 3D Take 30 mLs (20 g total) by mouth 3 (three) times daily for 7 days. [facility] ondansetron (ZOFRAN-ODT ) 4 MG disintegrat ing tablet 2022-07 00:00: 00 06-11 23:59 :00 No 4mg Take 1 tablet (4 mg total) by mouth every 6 (six) hours as needed for up to 7 days. [facility] lactulose (CHRONULAC) 20 gram/30 mL solution 2022-07 00:00: 00 06-11 23:59 :00 No 20g Q.[id number] 3D Take 30 mLs (20 g total) by mouth 3 (three) times daily for 7 days. [facility] ondansetron (ZOFRAN-ODT ) 4 MG disintegrat ing tablet 2022-07 00:00: 00 06-11 23:59 :00 No 4mg Take 1 tablet (4 mg total) by mouth every 6 (six) hours as needed for up to 7 days. [facility] lactulose (CHRONULAC) 20 gram/30 mL solution 2022-07 00:00: 00 06-11 23:59 :00 No 20g Q.[id number] 3D Take 30 mLs (20 g total) by mouth 3 (three) times daily for 7 days. [facility] ondansetron (ZOFRAN-ODT ) 4 MG disintegrat ing tablet 2022-07 00:00: 00 06-11 23:59 :00 No 4mg Take 1 tablet (4 mg total) by mouth every 6 (six) hours as needed for up to 7 days. [facility] metoprolol succinate (TOPROL-XL) 25 MG 24 hr tablet 2022-07 15:23: 22 Yes 25mg QD Take 1 tablet (25 mg total) by mouth daily. [facility] varenicline (CHANTIX) 1 mg tablet 2022-07 15:23: 22 Yes 1mg Q.5D Take 1 tablet (1 mg total) by mouth 2 (two) times daily Give with meals and with a full glass of water.. [facility] albuterol HFA (VENTOLIN HFA) 90 mcg/actuati on inhaler 2022-07 15:23: 22 Yes 1{puff} Inhale 1 puff by mouth via inhaler every 6 (six) hours as needed for Wheezing. [facility] fluticasone -umeclidin- vilanter (Trelegy Ellipta) 200-62.5-25 mcg DsDv 2022-07 15:23: 22 Yes QD Inhale by mouth via inhaler daily. [facility] atorvastati n (LIPITOR) 20 MG tablet 2022-07 15:23: 22 Yes 20mg QD Take 1 tablet (20 mg total) by mouth daily. [facility] acetaminoph en-codeine (TYLENOL #3) 300-30 mg per tablet 2022-07 15:23: 22 Yes 1{tbl} Take 1 tablet by mouth every 4 (four) hours as needed for Pain. [facility] acetaminoph en-codeine (TYLENOL #3) 300-30 mg per tablet 2022-07 09:42: 02 Yes 1{tbl} Take 1 tablet by mouth every 4 (four) hours as needed for Pain. Max Daily Amount: 6 tablets [facility] acetaminoph en-codeine (TYLENOL #3) 300-30 mg per tablet 2022-07 09:42: 02 Yes 1{tbl} Take 1 tablet by mouth every 4 (four) hours as needed for Pain. Max Daily Amount: 6 tablets [facility] varenicline (CHANTIX) 1 mg tablet 2022-07 09:40: 04 Yes 1mg Q.5D Take 1 tablet (1 mg total) by mouth 2 (two) times daily Give with meals and with a full glass of water.. [facility] albuterol HFA (VENTOLIN HFA) 90 mcg/actuati on inhaler 2022-07 09:40: 04 Yes 1{puff} Inhale 1 puff by mouth via inhaler every 6 (six) hours as needed for Wheezing. [facility] fluticasone -umeclidin- vilanter (Trelegy Ellipta) 200-62.5-25 mcg DsDv 2022-07 09:40: 04 Yes QD Inhale by mouth via inhaler daily. [facility] atorvastati n (LIPITOR) 20 MG tablet 2022-07 09:40: 04 Yes 20mg QD Take 1 tablet (20 mg total) by mouth daily. [facility] varenicline (CHANTIX) 1 mg tablet 2022-07 09:40: 04 Yes 1mg Q.5D Take 1 tablet (1 mg total) by mouth 2 (two) times daily Give with meals and with a full glass of water.. [facility] albuterol HFA (VENTOLIN HFA) 90 mcg/actuati on inhaler 2022-07 09:40: 04 Yes 1{puff} Inhale 1 puff by mouth via inhaler every 6 (six) hours as needed for Wheezing. [facility] fluticasone -umeclidin- vilanter (Trelegy Ellipta) 200-62.5-25 mcg DsDv 2022-07 09:40: 04 Yes QD Inhale by mouth via inhaler daily. [facility] atorvastati n (LIPITOR) 20 MG tablet 2022-07 09:40: 04 Yes 20mg QD Take 1 tablet (20 mg total) by mouth daily. [facility] metoprolol succinate (TOPROL-XL) 25 MG 24 hr tablet 2022-07 09:13: 28 Yes 25mg QD Take 1 tablet (25 mg total) by mouth daily. [facility] metoprolol succinate (TOPROL-XL) 25 MG 24 hr tablet 2022-07 09:13: 28 Yes 25mg QD Take 1 tablet (25 mg total) by mouth daily. [facility] furosemide (LASIX) 20 MG tablet 04-03 00:00: 00 04-02 23:59 :00 No 20mg QD Take 1 tablet (20 mg total) by mouth daily. [facility] DULoxetine (CYMBALTA) 30 MG capsule 04-03 00:00: 00 04-02 23:59 :00 No 30mg QD Take 1 capsule (30 mg total) by mouth daily. [facility] lisinopriL (PRINIVIL,Z ESTRIL) 5 MG tablet 04-03 00:00: 00 04-02 23:59 :00 No 5mg QD Take 1 tablet (5 mg total) by mouth daily. [facility] furosemide (LASIX) 20 MG tablet 04-03 00:00: 00 04-02 23:59 :00 No 20mg QD Take 1 tablet (20 mg total) by mouth daily. [facility] DULoxetine (CYMBALTA) 30 MG capsule 15 00:00: 00 04-02 23:59 :00 No 30mg QD Take 1 capsule (30 mg total) by mouth daily. [facility] lisinopriL (PRINIVIL,Z ESTRIL) 5 MG tablet 15 00:00: 00 04-02 23:59 :00 No 5mg QD Take 1 tablet (5 mg total) by mouth daily. [facility] furosemide (LASIX) 20 MG tablet 2023-0 9-15 00:00: 00 04-02 23:59 :00 No 20mg QD Take 1 tablet (20 mg total) by mouth daily. [facility] DULoxetine (CYMBALTA) 30 MG capsule 0 -15 00:00: 00 04-02 23:59 :00 No 30mg QD Take 1 capsule (30 mg total) by mouth daily. [facility] lisinopriL (PRINIVIL,Z ESTRIL) 5 MG tablet 0 -15 00:00: 00 04-02 23:59 :00 No 5mg QD Take 1 tablet (5 mg total) by mouth daily. [facility] furosemide (LASIX) 20 MG tablet 2022-0 -15 00:00: 00 04-02 23:59 :00 No 20mg QD Take 1 tablet (20 mg total) by mouth daily. [facility] DULoxetine (CYMBALTA) 30 MG capsule 0 15 00:00: 00 04-02 23:59 :00 No 30mg QD Take 1 capsule (30 mg total) by mouth daily. [facility] lisinopriL (PRINIVIL,Z ESTRIL) 5 MG tablet 0 -15 00:00: 00 04-02 23:59 :00 No 5mg QD Take 1 tablet (5 mg total) by mouth daily. [facility] furosemide (LASIX) 20 MG tablet 2022-0 -15 00:00: 00 04-02 23:59 :00 No 20mg QD Take 1 tablet (20 mg total) by mouth daily. [facility] DULoxetine (CYMBALTA) 30 MG capsule 2022-0 -15 00:00: 00 04-02 23:59 :00 No 30mg QD Take 1 capsule (30 mg total) by mouth daily. [facility] lisinopriL (PRINIVIL,Z ESTRIL) 5 MG tablet 2022-0 9-15 00:00: 00 04-02 23:59 :00 No 5mg QD Take 1 tablet (5 mg total) by mouth daily. [facility] furosemide (LASIX) 20 MG tablet 2022-0 9-15 00:00: 00 04-02 23:59 :00 No 20mg QD Take 1 tablet (20 mg total) by mouth daily. [facility] DULoxetine (CYMBALTA) 30 MG capsule 2022-0 9-15 00:00: 00 04-02 23:59 :00 No 30mg QD Take 1 capsule (30 mg total) by mouth daily. [facility] lisinopriL (PRINIVIL,Z ESTRIL) 5 MG tablet 0 9-15 00:00: 00 04-02 23:59 :00 No 5mg QD Take 1 tablet (5 mg total) by mouth daily. [facility] furosemide (LASIX) 20 MG tablet 0 9-15 00:00: 00 04-02 23:59 :00 No 20mg QD Take 1 tablet (20 mg total) by mouth daily. [facility] DULoxetine (CYMBALTA) 30 MG capsule 2022-0 -15 00:00: 00 04-02 23:59 :00 No 30mg QD Take 1 capsule (30 mg total) by mouth daily. [facility] lisinopriL (PRINIVIL,Z ESTRIL) 5 MG tablet 0 -15 00:00: 00 04-02 23:59 :00 No 5mg QD Take 1 tablet (5 mg total) by mouth daily. [facility] furosemide (LASIX) 20 MG tablet 2022-0 -15 00:00: 00 04-02 23:59 :00 No 20mg QD Take 1 tablet (20 mg total) by mouth daily. [facility] DULoxetine (CYMBALTA) 30 MG capsule 2022-0 9-15 00:00: 00 04-02 23:59 :00 No 30mg QD Take 1 capsule (30 mg total) by mouth daily. [facility] lisinopriL (PRINIVIL,Z ESTRIL) 5 MG tablet 2022-0 9-15 00:00: 00 04-02 23:59 :00 No 5mg QD Take 1 tablet (5 mg total) by mouth daily. [facility] furosemide (LASIX) 20 MG tablet 2022-0 9-15 00:00: 00 04-02 23:59 :00 No 20mg QD Take 1 tablet (20 mg total) by mouth daily. [facility] DULoxetine (CYMBALTA) 30 MG capsule 2022-0 9-15 00:00: 00 04-02 23:59 :00 No 30mg QD Take 1 capsule (30 mg total) by mouth daily. [facility] lisinopriL (PRINIVIL,Z ESTRIL) 5 MG tablet 2022-0 9-15 00:00: 00 04-02 23:59 :00 No 5mg QD Take 1 tablet (5 mg total) by mouth daily. [facility] furosemide (LASIX) 20 MG tablet 2022-0 9-15 00:00: 00 04-02 23:59 :00 No 20mg QD Take 1 tablet (20 mg total) by mouth daily. [facility] DULoxetine (CYMBALTA) 30 MG capsule 2022-0 9-15 00:00: 00 04-02 23:59 :00 No 30mg QD Take 1 capsule (30 mg total) by mouth daily. [facility] furosemide (LASIX) 20 MG tablet 0 -15 00:00: 00 04-02 23:59 :00 No 20mg QD Take 1 tablet (20 mg total) by mouth daily. [facility] DULoxetine (CYMBALTA) 30 MG capsule 2022-0 9-15 00:00: 00 04-02 23:59 :00 No 30mg QD Take 1 capsule (30 mg total) by mouth daily. [facility] furosemide (LASIX) 20 MG tablet 2022-0 9-15 00:00: 00 04-02 23:59 :00 No 20mg QD Take 1 tablet (20 mg total) by mouth daily. [facility] DULoxetine (CYMBALTA) 30 MG capsule 2022-0 9-15 00:00: 00 04-02 23:59 :00 No 30mg QD Take 1 capsule (30 mg total) by mouth daily. [facility] furosemide (LASIX) 20 MG tablet 04-03 00:00: 00 04-02 23:59 :00 No 20mg QD Take 1 tablet (20 mg total) by mouth daily. [facility] DULoxetine (CYMBALTA) 30 MG capsule 04-03 00:00: 00 04-02 23:59 :00 No 30mg QD Take 1 capsule (30 mg total) by mouth daily. [facility] furosemide (LASIX) 20 MG tablet 04-03 00:00: 00 04-02 23:59 :00 No 20mg QD Take 1 tablet (20 mg total) by mouth daily. [facility] furosemide (LASIX) 20 MG tablet 04-03 00:00: 00 04-02 23:59 :00 No 20mg QD Take 1 tablet (20 mg total) by mouth daily. [facility] aspirin 81 MG EC tablet 04-03 00:00: 00 07-02 23:59 :00 No 81mg QD Take 1 tablet (81 mg total) by mouth daily for 90 days. [facility] divalproex (DEPAKOTE) 500 MG EC tablet 04-03 00:00: 00 07-02 23:59 :00 No 500mg Q.5D Take 1 tablet (500 mg total) by mouth 2 (two) times daily for 90 days. [facility] gabapentin (NEURONTIN) 300 MG capsule 04-03 00:00: 00 07-02 23:59 :00 No 300mg Q.[id number] 3D Take 1 capsule (300 mg total) by mouth 3 (three) times daily for 90 days. [facility] aspirin 81 MG EC tablet 04-03 00:00: 00 07-02 23:59 :00 No 81mg QD Take 1 tablet (81 mg total) by mouth daily for 90 days. [facility] divalproex (DEPAKOTE) 500 MG EC tablet 04-03 00:00: 00 07-02 23:59 :00 No 500mg Q.5D Take 1 tablet (500 mg total) by mouth 2 (two) times daily for 90 days. [facility] gabapentin (NEURONTIN) 300 MG capsule 04-03 00:00: 00 07-02 23:59 :00 No 300mg Q.[id number] 3D Take 1 capsule (300 mg total) by mouth 3 (three) times daily for 90 days. [facility] aspirin 81 MG EC tablet 04-03 00:00: 00 07-02 23:59 :00 No 81mg QD Take 1 tablet (81 mg total) by mouth daily for 90 days. [facility] divalproex (DEPAKOTE) 500 MG EC tablet 04-03 00:00: 00 07-02 23:59 :00 No 500mg Q.5D Take 1 tablet (500 mg total) by mouth 2 (two) times daily for 90 days. [facility] gabapentin (NEURONTIN) 300 MG capsule 04-03 00:00: 00 07-02 23:59 :00 No 300mg Q.[id number] 3D Take 1 capsule (300 mg total) by mouth 3 (three) times daily for 90 days. [facility] aspirin 81 MG EC tablet 04-03 00:00: 00 07-02 23:59 :00 No 81mg QD Take 1 tablet (81 mg total) by mouth daily for 90 days. [facility] divalproex (DEPAKOTE) 500 MG EC tablet 04-03 00:00: 00 07-02 23:59 :00 No 500mg Q.5D Take 1 tablet (500 mg total) by mouth 2 (two) times daily for 90 days. [facility] gabapentin (NEURONTIN) 300 MG capsule 04-03 00:00: 00 07-02 23:59 :00 No 300mg Q.[id number] 3D Take 1 capsule (300 mg total) by mouth 3 (three) times daily for 90 days. [facility] aspirin 81 MG EC tablet 04-03 00:00: 00 07-02 23:59 :00 No 81mg QD Take 1 tablet (81 mg total) by mouth daily for 90 days. [facility] divalproex (DEPAKOTE) 500 MG EC tablet 04-03 00:00: 00 07-02 23:59 :00 No 500mg Q.5D Take 1 tablet (500 mg total) by mouth 2 (two) times daily for 90 days. [facility] gabapentin (NEURONTIN) 300 MG capsule 04-03 00:00: 00 07-02 23:59 :00 No 300mg Q.[id number] 3D Take 1 capsule (300 mg total) by mouth 3 (three) times daily for 90 days. [facility] aspirin 81 MG EC tablet 04-03 00:00: 00 07-02 23:59 :00 No 81mg QD Take 1 tablet (81 mg total) by mouth daily for 90 days. [facility] divalproex (DEPAKOTE) 500 MG EC tablet 04-03 00:00: 00 07-02 23:59 :00 No 500mg Q.5D Take 1 tablet (500 mg total) by mouth 2 (two) times daily for 90 days. [facility] gabapentin (NEURONTIN) 300 MG capsule 04-03 00:00: 00 07-02 23:59 :00 No 300mg Q.[id number] 3D Take 1 capsule (300 mg total) by mouth 3 (three) times daily for 90 days. [facility] aspirin 81 MG EC tablet 04-03 00:00: 00 07-02 23:59 :00 No 81mg QD Take 1 tablet (81 mg total) by mouth daily for 90 days. [facility] divalproex (DEPAKOTE) 500 MG EC tablet 04-03 00:00: 00 07-02 23:59 :00 No 500mg Q.5D Take 1 tablet (500 mg total) by mouth 2 (two) times daily for 90 days. [facility] gabapentin (NEURONTIN) 300 MG capsule 15 00:00: 00 07-02 23:59 :00 No 300mg Q.[id number] 3D Take 1 capsule (300 mg total) by mouth 3 (three) times daily for 90 days. [facility] aspirin 81 MG EC tablet 15 00:00: 00 07-02 23:59 :00 No 81mg QD Take 1 tablet (81 mg total) by mouth daily for 90 days. [facility] divalproex (DEPAKOTE) 500 MG EC tablet 04-03 00:00: 00 07-02 23:59 :00 No 500mg Q.5D Take 1 tablet (500 mg total) by mouth 2 (two) times daily for 90 days. [facility] gabapentin (NEURONTIN) 300 MG capsule 04-03 00:00: 00 07-02 23:59 :00 No 300mg Q.[id number] 3D Take 1 capsule (300 mg total) by mouth 3 (three) times daily for 90 days. [facility] aspirin 81 MG EC tablet 15 00:00: 00 07-02 23:59 :00 No 81mg QD Take 1 tablet (81 mg total) by mouth daily for 90 days. [facility] divalproex (DEPAKOTE) 500 MG EC tablet 04-03 00:00: 00 07-02 23:59 :00 No 500mg Q.5D Take 1 tablet (500 mg total) by mouth 2 (two) times daily for 90 days. [facility] gabapentin (NEURONTIN) 300 MG capsule 15 00:00: 00 07-02 23:59 :00 No 300mg Q.[id number] 3D Take 1 capsule (300 mg total) by mouth 3 (three) times daily for 90 days. [facility] aspirin 81 MG EC tablet -15 00:00: 00 07-02 23:59 :00 No 81mg QD Take 1 tablet (81 mg total) by mouth daily for 90 days. [facility] divalproex (DEPAKOTE) 500 MG EC tablet 04-03 00:00: 00 07-02 23:59 :00 No 500mg Q.5D Take 1 tablet (500 mg total) by mouth 2 (two) times daily for 90 days. [facility] gabapentin (NEURONTIN) 300 MG capsule 04-03 00:00: 00 07-02 23:59 :00 No 300mg Q.[id number] 3D Take 1 capsule (300 mg total) by mouth 3 (three) times daily for 90 days. [facility] aspirin 81 MG EC tablet 04-03 00:00: 00 07-02 23:59 :00 No 81mg QD Take 1 tablet (81 mg total) by mouth daily for 90 days. [facility] divalproex (DEPAKOTE) 500 MG EC tablet 04-03 00:00: 00 07-02 23:59 :00 No 500mg Q.5D Take 1 tablet (500 mg total) by mouth 2 (two) times daily for 90 days. [facility] gabapentin (NEURONTIN) 300 MG capsule 04-03 00:00: 00 07-02 23:59 :00 No 300mg Q.[id number] 3D Take 1 capsule (300 mg total) by mouth 3 (three) times daily for 90 days. [facility] aspirin 81 MG EC tablet 04-03 00:00: 00 07-02 23:59 :00 No 81mg QD Take 1 tablet (81 mg total) by mouth daily for 90 days. [facility] divalproex (DEPAKOTE) 500 MG EC tablet 04-03 00:00: 00 07-02 23:59 :00 No 500mg Q.5D Take 1 tablet (500 mg total) by mouth 2 (two) times daily for 90 days. [facility] gabapentin (NEURONTIN) 300 MG capsule 04-03 00:00: 00 07-02 23:59 :00 No 300mg Q.[id number] 3D Take 1 capsule (300 mg total) by mouth 3 (three) times daily for 90 days. [facility] aspirin 81 MG EC tablet 04-03 00:00: 00 07-02 23:59 :00 No 81mg QD Take 1 tablet (81 mg total) by mouth daily for 90 days. [facility] divalproex (DEPAKOTE) 500 MG EC tablet 04-03 00:00: 00 07-02 23:59 :00 No 500mg Q.5D Take 1 tablet (500 mg total) by mouth 2 (two) times daily for 90 days. [facility] gabapentin (NEURONTIN) 300 MG capsule 04-03 00:00: 00 07-02 23:59 :00 No 300mg Q.[id number] 3D Take 1 capsule (300 mg total) by mouth 3 (three) times daily for 90 days. [facility] aspirin 81 MG EC tablet 04-03 00:00: 00 07-02 23:59 :00 No 81mg QD Take 1 tablet (81 mg total) by mouth daily for 90 days. [facility] divalproex (DEPAKOTE) 500 MG EC tablet 04-03 00:00: 00 07-02 23:59 :00 No 500mg Q.5D Take 1 tablet (500 mg total) by mouth 2 (two) times daily for 90 days. [facility] gabapentin (NEURONTIN) 300 MG capsule 04-03 00:00: 00 07-02 23:59 :00 No 300mg Q.[id number] 3D Take 1 capsule (300 mg total) by mouth 3 (three) times daily for 90 days. [facility] aspirin 81 MG EC tablet 04-03 00:00: 00 07-02 23:59 :00 No 81mg QD Take 1 tablet (81 mg total) by mouth daily for 90 days. [facility] divalproex (DEPAKOTE) 500 MG EC tablet 04-03 00:00: 07-02 23:59 :00 No 500mg Q.5D Take 1 tablet (500 mg total) by mouth 2 (two) times daily for 90 days. [facility] gabapentin (NEURONTIN) 300 MG capsule 04-03 00:00: 00 07-02 23:59 :00 No 300mg Q.[id number] 3D Take 1 capsule (300 mg total) by mouth 3 (three) times daily for 90 days. [facility] DULoxetine (CYMBALTA) 30 MG capsule 04-03 00:00: 00 06-16 00:00 :00 No 30mg QD Take 1 capsule (30 mg total) by mouth daily. [facility] DULoxetine (CYMBALTA) 30 MG capsule 04-03 00:00: 00 06-16 00:00 :00 No 30mg QD Take 1 capsule (30 mg total) by mouth daily. [facility] lisinopriL (PRINIVIL,Z ESTRIL) 5 MG tablet 04-03 00:00: 00 05-28 00:00 :00 No 5mg QD Take 1 tablet (5 mg total) by mouth daily. [facility] lisinopriL (PRINIVIL,Z ESTRIL) 5 MG tablet 04-03 00:00: 00 05-28 00:00 :00 No 5mg QD Take 1 tablet (5 mg total) by mouth daily. [facility] lisinopriL (PRINIVIL,Z ESTRIL) 5 MG tablet 04-03 00:00: 00 05-28 00:00 :00 No 5mg QD Take 1 tablet (5 mg total) by mouth daily. [facility] lisinopriL (PRINIVIL,Z ESTRIL) 5 MG tablet 04-03 00:00: 00 05-28 00:00 :00 No 5mg QD Take 1 tablet (5 mg total) by mouth daily. [facility] lisinopriL (PRINIVIL,Z ESTRIL) 5 MG tablet 04-03 00:00: 05-28 00:00 :00 No 5mg QD Take 1 tablet (5 mg total) by mouth daily. [facility] lisinopriL (PRINIVIL,Z ESTRIL) 5 MG tablet 04-03 00:00: 05-28 00:00 :00 No 5mg QD Take 1 tablet (5 mg total) by mouth daily. [facility] clonazePAM (KlonoPIN) 0.5 MG tablet 04-03 00:00: 00 05-03 23:59 :00 No .25mg Take 0.5 tablets (0.25 mg total) by mouth 2 (two) times daily as needed for Anxiety for up to 30 days. Max Daily Amount: 0.5 mg [facility] clonazePAM (KlonoPIN) 0.5 MG tablet 04-03 00:00: 00 05-03 23:59 :00 No .25mg Take 0.5 tablets (0.25 mg total) by mouth 2 (two) times daily as needed for Anxiety for up to 30 days. Max Daily Amount: 0.5 mg [facility] clonazePAM (KlonoPIN) 0.5 MG tablet 04-03 00:00: 00 05-03 23:59 :00 No .25mg Take 0.5 tablets (0.25 mg total) by mouth 2 (two) times daily as needed for Anxiety for up to 30 days. Max Daily Amount: 0.5 mg [facility] clonazePAM (KlonoPIN) 0.5 MG tablet 04-03 00:00: 00 05-03 23:59 :00 No .25mg Take 0.5 tablets (0.25 mg total) by mouth 2 (two) times daily as needed for Anxiety for up to 30 days. Max Daily Amount: 0.5 mg [facility] clonazePAM (KlonoPIN) 0.5 MG tablet 04-03 00:00: 00 05-03 23:59 :00 No .25mg Take 0.5 tablets (0.25 mg total) by mouth 2 (two) times daily as needed for Anxiety for up to 30 days. Max Daily Amount: 0.5 mg [facility] clonazePAM (KlonoPIN) 0.5 MG tablet 04-03 00:00: 00 05-03 23:59 :00 No .25mg Take 0.5 tablets (0.25 mg total) by mouth 2 (two) times daily as needed for Anxiety for up to 30 days. Max Daily Amount: 0.5 mg [facility] clonazePAM (KlonoPIN) 0.5 MG tablet 04-03 00:00: 00 05-03 23:59 :00 No .25mg Take 0.5 tablets (0.25 mg total) by mouth 2 (two) times daily as needed for Anxiety for up to 30 days. Max Daily Amount: 0.5 mg [facility] clonazePAM (KlonoPIN) 0.5 MG tablet 04-03 00:00: 00 05-03 23:59 :00 No .25mg Take 0.5 tablets (0.25 mg total) by mouth 2 (two) times daily as needed for Anxiety for up to 30 days. Max Daily Amount: 0.5 mg [facility] clonazePAM (KlonoPIN) 0.5 MG tablet 04-03 00:00: 00 05-03 23:59 :00 No .25mg Take 0.5 tablets (0.25 mg total) by mouth 2 (two) times daily as needed for Anxiety for up to 30 days. Max Daily Amount: 0.5 mg [facility] clonazePAM (KlonoPIN) 0.5 MG tablet 04-03 00:00: 00 05-03 23:59 :00 No .25mg Take 0.5 tablets (0.25 mg total) by mouth 2 (two) times daily as needed for Anxiety for up to 30 days. Max Daily Amount: 0.5 mg [facility] clonazePAM (KlonoPIN) 0.5 MG tablet 04-03 00:00: 00 05-03 23:59 :00 No .25mg Take 0.5 tablets (0.25 mg total) by mouth 2 (two) times daily as needed for Anxiety for up to 30 days. Max Daily Amount: 0.5 mg [facility] clonazePAM (KlonoPIN) 0.5 MG tablet 04-03 00:00: 00 05-03 23:59 :00 No .25mg Take 0.5 tablets (0.25 mg total) by mouth 2 (two) times daily as needed for Anxiety for up to 30 days. Max Daily Amount: 0.5 mg [facility] clonazePAM (KlonoPIN) 0.5 MG tablet 04-03 00:00: 00 05-03 23:59 :00 No .25mg Take 0.5 tablets (0.25 mg total) by mouth 2 (two) times daily as needed for Anxiety for up to 30 days. Max Daily Amount: 0.5 mg [facility] clonazePAM (KlonoPIN) 0.5 MG tablet 04-03 00:00: 00 05-03 23:59 :00 No .25mg Take 0.5 tablets (0.25 mg total) by mouth 2 (two) times daily as needed for Anxiety for up to 30 days. Max Daily Amount: 0.5 mg [facility] clonazePAM (KlonoPIN) 0.5 MG tablet 04-03 00:00: 00 05-03 23:59 :00 No .25mg Take 0.5 tablets (0.25 mg total) by mouth 2 (two) times daily as needed for Anxiety for up to 30 days. Max Daily Amount: 0.5 mg [facility] HYDROcodone -acetaminop hen (NORCO 10-325) 10-325 mg per tablet 04-03 00:00: 00 04-13 23:59 :00 No 1{tbl} Take 1 tablet by mouth every 6 (six) hours as needed for up to 10 days. Max Daily Amount: 4 tablets [facility] methocarbam oL (ROBAXIN) 500 MG tablet 04-03 00:00: 00 04-13 23:59 :00 No 500mg Q.25D Take 1 tablet (500 mg total) by mouth 4 (four) times daily for 10 days. [facility] HYDROcodone -acetaminop hen (NORCO 10-325) 10-325 mg per tablet 04-03 00:00: 00 04-13 23:59 :00 No 1{tbl} Take 1 tablet by mouth every 6 (six) hours as needed for up to 10 days. Max Daily Amount: 4 tablets [facility] methocarbam oL (ROBAXIN) 500 MG tablet 04-03 00:00: 00 04-13 23:59 :00 No 500mg Q.25D Take 1 tablet (500 mg total) by mouth 4 (four) times daily for 10 days. [facility] HYDROcodone -acetaminop hen (NORCO 10-325) 10-325 mg per tablet 04-03 00:00: 00 04-13 23:59 :00 No 1{tbl} Take 1 tablet by mouth every 6 (six) hours as needed for up to 10 days. Max Daily Amount: 4 tablets [facility] methocarbam oL (ROBAXIN) 500 MG tablet 04-03 00:00: 00 04-13 23:59 :00 No 500mg Q.25D Take 1 tablet (500 mg total) by mouth 4 (four) times daily for 10 days. [facility] HYDROcodone -acetaminop hen (NORCO 10-325) 10-325 mg per tablet 04-03 00:00: 00 04-13 23:59 :00 No 1{tbl} Take 1 tablet by mouth every 6 (six) hours as needed for up to 10 days. Max Daily Amount: 4 tablets [facility] methocarbam oL (ROBAXIN) 500 MG tablet 04-03 00:00: 00 04-13 23:59 :00 No 500mg Q.25D Take 1 tablet (500 mg total) by mouth 4 (four) times daily for 10 days. [facility] HYDROcodone -acetaminop hen (NORCO 10-325) 10-325 mg per tablet 04-03 00:00: 00 04-13 23:59 :00 No 1{tbl} Take 1 tablet by mouth every 6 (six) hours as needed for up to 10 days. Max Daily Amount: 4 tablets [facility] methocarbam oL (ROBAXIN) 500 MG tablet -15 00:00: 00 04-13 23:59 :00 No 500mg Q.25D Take 1 tablet (500 mg total) by mouth 4 (four) times daily for 10 days. [facility] HYDROcodone -acetaminop hen (NORCO 10-325) 10-325 mg per tablet 04-03 00:00: 00 04-13 23:59 :00 No 1{tbl} Take 1 tablet by mouth every 6 (six) hours as needed for up to 10 days. Max Daily Amount: 4 tablets [facility] methocarbam oL (ROBAXIN) 500 MG tablet 04-03 00:00: 00 04-13 23:59 :00 No 500mg Q.25D Take 1 tablet (500 mg total) by mouth 4 (four) times daily for 10 days. [facility] HYDROcodone -acetaminop hen (NORCO 10-325) 10-325 mg per tablet 04-03 00:00: 00 04-13 23:59 :00 No 1{tbl} Take 1 tablet by mouth every 6 (six) hours as needed for up to 10 days. Max Daily Amount: 4 tablets [facility] methocarbam oL (ROBAXIN) 500 MG tablet 04-03 00:00: 00 04-13 23:59 :00 No 500mg Q.25D Take 1 tablet (500 mg total) by mouth 4 (four) times daily for 10 days. [facility] HYDROcodone -acetaminop hen (NORCO 10-325) 10-325 mg per tablet 15 00:00: 00 04-13 23:59 :00 No 1{tbl} Take 1 tablet by mouth every 6 (six) hours as needed for up to 10 days. Max Daily Amount: 4 tablets [facility] methocarbam oL (ROBAXIN) 500 MG tablet 15 00:00: 00 04-13 23:59 :00 No 500mg Q.25D Take 1 tablet (500 mg total) by mouth 4 (four) times daily for 10 days. [facility] HYDROcodone -acetaminop hen (NORCO 10-325) 10-325 mg per tablet 04-03 00:00: 00 04-13 23:59 :00 No 1{tbl} Take 1 tablet by mouth every 6 (six) hours as needed for up to 10 days. Max Daily Amount: 4 tablets [facility] methocarbam oL (ROBAXIN) 500 MG tablet 04-03 00:00: 00 04-13 23:59 :00 No 500mg Q.25D Take 1 tablet (500 mg total) by mouth 4 (four) times daily for 10 days. [facility] HYDROcodone -acetaminop hen (NORCO 10-325) 10-325 mg per tablet 04-03 00:00: 00 04-13 23:59 :00 No 1{tbl} Take 1 tablet by mouth every 6 (six) hours as needed for up to 10 days. Max Daily Amount: 4 tablets [facility] methocarbam oL (ROBAXIN) 500 MG tablet 04-03 00:00: 00 04-13 23:59 :00 No 500mg Q.25D Take 1 tablet (500 mg total) by mouth 4 (four) times daily for 10 days. [facility] HYDROcodone -acetaminop hen (NORCO 10-325) 10-325 mg per tablet 04-03 00:00: 00 04-13 23:59 :00 No 1{tbl} Take 1 tablet by mouth every 6 (six) hours as needed for up to 10 days. Max Daily Amount: 4 tablets [facility] methocarbam oL (ROBAXIN) 500 MG tablet 04-03 00:00: 00 04-13 23:59 :00 No 500mg Q.25D Take 1 tablet (500 mg total) by mouth 4 (four) times daily for 10 days. [facility] HYDROcodone -acetaminop hen (NORCO 10-325) 10-325 mg per tablet 04-03 00:00: 00 04-13 23:59 :00 No 1{tbl} Take 1 tablet by mouth every 6 (six) hours as needed for up to 10 days. Max Daily Amount: 4 tablets [facility] methocarbam oL (ROBAXIN) 500 MG tablet 04-03 00:00: 00 04-13 23:59 :00 No 500mg Q.25D Take 1 tablet (500 mg total) by mouth 4 (four) times daily for 10 days. [facility] HYDROcodone -acetaminop hen (NORCO 10-325) 10-325 mg per tablet 04-03 00:00: 00 04-13 23:59 :00 No 1{tbl} Take 1 tablet by mouth every 6 (six) hours as needed for up to 10 days. Max Daily Amount: 4 tablets [facility] methocarbam oL (ROBAXIN) 500 MG tablet 04-03 00:00: 00 04-13 23:59 :00 No 500mg Q.25D Take 1 tablet (500 mg total) by mouth 4 (four) times daily for 10 days. [facility] HYDROcodone -acetaminop hen (NORCO 10-325) 10-325 mg per tablet 04-03 00:00: 00 04-13 23:59 :00 No 1{tbl} Take 1 tablet by mouth every 6 (six) hours as needed for up to 10 days. Max Daily Amount: 4 tablets [facility] methocarbam oL (ROBAXIN) 500 MG tablet 04-03 00:00: 00 04-13 23:59 :00 No 500mg Q.25D Take 1 tablet (500 mg total) by mouth 4 (four) times daily for 10 days. [facility] HYDROcodone -acetaminop hen (NORCO 10-325) 10-325 mg per tablet 04-03 00:00: 00 04-13 23:59 :00 No 1{tbl} Take 1 tablet by mouth every 6 (six) hours as needed for up to 10 days. Max Daily Amount: 4 tablets [facility] methocarbam oL (ROBAXIN) 500 MG tablet 04-03 00:00: 00 04-13 23:59 :00 No 500mg Q.25D Take 1 tablet (500 mg total) by mouth 4 (four) times daily for 10 days. [facility] lisinopriL (PRINIVIL,Z ESTRIL) 5 MG tablet 04-03 00:00: 00 04-03 00:00 :00 No 5mg QD Take 1 tablet (5 mg total) by mouth daily. [facility] aspirin 81 MG EC tablet 04-03 00:00: 00 04-03 00:00 :00 No 81mg QD Take 1 tablet (81 mg total) by mouth daily for 90 days. [facility] DULoxetine (CYMBALTA) 30 MG capsule 04-03 00:00: 00 04-03 00:00 :00 No 30mg QD Take 1 capsule (30 mg total) by mouth daily. [facility] furosemide (LASIX) 20 MG tablet 04-03 00:00: 00 04-03 00:00 :00 No 20mg QD Take 1 tablet (20 mg total) by mouth daily. [facility] lisinopriL (PRINIVIL,Z ESTRIL) 5 MG tablet 04-03 00:00: 00 04-03 00:00 :00 No 5mg QD Take 1 tablet (5 mg total) by mouth daily. [facility] aspirin 81 MG EC tablet 04-03 00:00: 00 04-03 00:00 :00 No 81mg QD Take 1 tablet (81 mg total) by mouth daily for 90 days. [facility] DULoxetine (CYMBALTA) 30 MG capsule 04-03 00:00: 00 04-03 00:00 :00 No 30mg QD Take 1 capsule (30 mg total) by mouth daily. [facility] furosemide (LASIX) 20 MG tablet 04-03 00:00: 00 04-03 00:00 :00 No 20mg QD Take 1 tablet (20 mg total) by mouth daily. [facility] lisinopriL (PRINIVIL,Z ESTRIL) 5 MG tablet 04-03 00:00: 00 04-03 00:00 :00 No 5mg QD Take 1 tablet (5 mg total) by mouth daily. [facility] aspirin 81 MG EC tablet 04-03 00:00: 00 04-03 00:00 :00 No 81mg QD Take 1 tablet (81 mg total) by mouth daily for 90 days. [facility] DULoxetine (CYMBALTA) 30 MG capsule 04-03 00:00: 00 04-03 00:00 :00 No 30mg QD Take 1 capsule (30 mg total) by mouth daily. [facility] furosemide (LASIX) 20 MG tablet 04-03 00:00: 00 04-03 00:00 :00 No 20mg QD Take 1 tablet (20 mg total) by mouth daily. [facility] lisinopriL (PRINIVIL,Z ESTRIL) 5 MG tablet 04-03 00:00: 00 04-03 00:00 :00 No 5mg QD Take 1 tablet (5 mg total) by mouth daily. [facility] aspirin 81 MG EC tablet 04-03 00:00: 00 04-03 00:00 :00 No 81mg QD Take 1 tablet (81 mg total) by mouth daily for 90 days. [facility] DULoxetine (CYMBALTA) 30 MG capsule 04-03 00:00: 00 04-03 00:00 :00 No 30mg QD Take 1 capsule (30 mg total) by mouth daily. [facility] furosemide (LASIX) 20 MG tablet 04-03 00:00: 00 04-03 00:00 :00 No 20mg QD Take 1 tablet (20 mg total) by mouth daily. [facility] lisinopriL (PRINIVIL,Z ESTRIL) 5 MG tablet 04-03 00:00: 00 04-03 00:00 :00 No 5mg QD Take 1 tablet (5 mg total) by mouth daily. [facility] aspirin 81 MG EC tablet 04-03 00:00: 00 04-03 00:00 :00 No 81mg QD Take 1 tablet (81 mg total) by mouth daily for 90 days. [facility] DULoxetine (CYMBALTA) 30 MG capsule 04-03 00:00: 00 04-03 00:00 :00 No 30mg QD Take 1 capsule (30 mg total) by mouth daily. [facility] furosemide (LASIX) 20 MG tablet 04-03 00:00: 00 04-03 00:00 :00 No 20mg QD Take 1 tablet (20 mg total) by mouth daily. [facility] lisinopriL (PRINIVIL,Z ESTRIL) 5 MG tablet 04-03 00:00: 00 04-03 00:00 :00 No 5mg QD Take 1 tablet (5 mg total) by mouth daily. [facility] aspirin 81 MG EC tablet 04-03 00:00: 00 04-03 00:00 :00 No 81mg QD Take 1 tablet (81 mg total) by mouth daily for 90 days. [facility] DULoxetine (CYMBALTA) 30 MG capsule 04-03 00:00: 00 04-03 00:00 :00 No 30mg QD Take 1 capsule (30 mg total) by mouth daily. [facility] furosemide (LASIX) 20 MG tablet 04-03 00:00: 00 04-03 00:00 :00 No 20mg QD Take 1 tablet (20 mg total) by mouth daily. [facility] lisinopriL (PRINIVIL,Z ESTRIL) 5 MG tablet 04-03 00:00: 00 04-03 00:00 :00 No 5mg QD Take 1 tablet (5 mg total) by mouth daily. [facility] aspirin 81 MG EC tablet 04-03 00:00: 00 04-03 00:00 :00 No 81mg QD Take 1 tablet (81 mg total) by mouth daily for 90 days. [facility] DULoxetine (CYMBALTA) 30 MG capsule 04-03 00:00: 00 04-03 00:00 :00 No 30mg QD Take 1 capsule (30 mg total) by mouth daily. [facility] furosemide (LASIX) 20 MG tablet 04-03 00:00: 00 04-03 00:00 :00 No 20mg QD Take 1 tablet (20 mg total) by mouth daily. [facility] lisinopriL (PRINIVIL,Z ESTRIL) 5 MG tablet 04-03 00:00: 00 04-03 00:00 :00 No 5mg QD Take 1 tablet (5 mg total) by mouth daily. [facility] aspirin 81 MG EC tablet 04-03 00:00: 00 04-03 00:00 :00 No 81mg QD Take 1 tablet (81 mg total) by mouth daily for 90 days. [facility] DULoxetine (CYMBALTA) 30 MG capsule 04-03 00:00: 00 04-03 00:00 :00 No 30mg QD Take 1 capsule (30 mg total) by mouth daily. [facility] furosemide (LASIX) 20 MG tablet 04-03 00:00: 00 04-03 00:00 :00 No 20mg QD Take 1 tablet (20 mg total) by mouth daily. [facility] lisinopriL (PRINIVIL,Z ESTRIL) 5 MG tablet 04-03 00:00: 00 04-03 00:00 :00 No 5mg QD Take 1 tablet (5 mg total) by mouth daily. [facility] aspirin 81 MG EC tablet 04-03 00:00: 00 04-03 00:00 :00 No 81mg QD Take 1 tablet (81 mg total) by mouth daily for 90 days. [facility] DULoxetine (CYMBALTA) 30 MG capsule 04-03 00:00: 00 04-03 00:00 :00 No 30mg QD Take 1 capsule (30 mg total) by mouth daily. [facility] furosemide (LASIX) 20 MG tablet 04-03 00:00: 00 04-03 00:00 :00 No 20mg QD Take 1 tablet (20 mg total) by mouth daily. [facility] lisinopriL (PRINIVIL,Z ESTRIL) 5 MG tablet 04-03 00:00: 00 04-03 00:00 :00 No 5mg QD Take 1 tablet (5 mg total) by mouth daily. [facility] aspirin 81 MG EC tablet 04-03 00:00: 00 04-03 00:00 :00 No 81mg QD Take 1 tablet (81 mg total) by mouth daily for 90 days. [facility] DULoxetine (CYMBALTA) 30 MG capsule 04-03 00:00: 00 04-03 00:00 :00 No 30mg QD Take 1 capsule (30 mg total) by mouth daily. [facility] furosemide (LASIX) 20 MG tablet 04-03 00:00: 00 04-03 00:00 :00 No 20mg QD Take 1 tablet (20 mg total) by mouth daily. [facility] lisinopriL (PRINIVIL,Z ESTRIL) 5 MG tablet 04-03 00:00: 00 04-03 00:00 :00 No 5mg QD Take 1 tablet (5 mg total) by mouth daily. [facility] aspirin 81 MG EC tablet 04-03 00:00: 00 04-03 00:00 :00 No 81mg QD Take 1 tablet (81 mg total) by mouth daily for 90 days. [facility] DULoxetine (CYMBALTA) 30 MG capsule 04-03 00:00: 00 04-03 00:00 :00 No 30mg QD Take 1 capsule (30 mg total) by mouth daily. [facility] furosemide (LASIX) 20 MG tablet 04-03 00:00: 00 04-03 00:00 :00 No 20mg QD Take 1 tablet (20 mg total) by mouth daily. [facility] lisinopriL (PRINIVIL,Z ESTRIL) 5 MG tablet 04-03 00:00: 00 04-03 00:00 :00 No 5mg QD Take 1 tablet (5 mg total) by mouth daily. [facility] aspirin 81 MG EC tablet 04-03 00:00: 00 04-03 00:00 :00 No 81mg QD Take 1 tablet (81 mg total) by mouth daily for 90 days. [facility] DULoxetine (CYMBALTA) 30 MG capsule 04-03 00:00: 00 04-03 00:00 :00 No 30mg QD Take 1 capsule (30 mg total) by mouth daily. [facility] furosemide (LASIX) 20 MG tablet 04-03 00:00: 00 04-03 00:00 :00 No 20mg QD Take 1 tablet (20 mg total) by mouth daily. [facility] lisinopriL (PRINIVIL,Z ESTRIL) 5 MG tablet 04-03 00:00: 00 04-03 00:00 :00 No 5mg QD Take 1 tablet (5 mg total) by mouth daily. [facility] aspirin 81 MG EC tablet 04-03 00:00: 00 04-03 00:00 :00 No 81mg QD Take 1 tablet (81 mg total) by mouth daily for 90 days. [facility] DULoxetine (CYMBALTA) 30 MG capsule 04-03 00:00: 00 04-03 00:00 :00 No 30mg QD Take 1 capsule (30 mg total) by mouth daily. [facility] furosemide (LASIX) 20 MG tablet 04-03 00:00: 00 04-03 00:00 :00 No 20mg QD Take 1 tablet (20 mg total) by mouth daily. [facility] lisinopriL (PRINIVIL,Z ESTRIL) 5 MG tablet 04-03 00:00: 00 04-03 00:00 :00 No 5mg QD Take 1 tablet (5 mg total) by mouth daily. [facility] aspirin 81 MG EC tablet 04-03 00:00: 00 04-03 00:00 :00 No 81mg QD Take 1 tablet (81 mg total) by mouth daily for 90 days. [facility] DULoxetine (CYMBALTA) 30 MG capsule 04-03 00:00: 00 04-03 00:00 :00 No 30mg QD Take 1 capsule (30 mg total) by mouth daily. [facility] furosemide (LASIX) 20 MG tablet 04-03 00:00: 00 04-03 00:00 :00 No 20mg QD Take 1 tablet (20 mg total) by mouth daily. [facility] lisinopriL (PRINIVIL,Z ESTRIL) 5 MG tablet 04-03 00:00: 00 04-03 00:00 :00 No 5mg QD Take 1 tablet (5 mg total) by mouth daily. [facility] aspirin 81 MG EC tablet 04-03 00:00: 00 04-03 00:00 :00 No 81mg QD Take 1 tablet (81 mg total) by mouth daily for 90 days. [facility] DULoxetine (CYMBALTA) 30 MG capsule 04-03 00:00: 00 04-03 00:00 :00 No 30mg QD Take 1 capsule (30 mg total) by mouth daily. [facility] furosemide (LASIX) 20 MG tablet 04-03 00:00: 00 04-03 00:00 :00 No 20mg QD Take 1 tablet (20 mg total) by mouth daily. [facility] gabapentin (NEURONTIN) 300 MG capsule 04-02 00:00: 00 04-03 00:00 :00 No 300mg Q.[id number] 3D Take 1 capsule (300 mg total) by mouth 3 (three) times daily for 90 days. [facility] HYDROcodone -acetaminop hen (NORCO 10-325) 10-325 mg per tablet 04-02 00:00: 00 04-03 00:00 :00 No 1{tbl} Take 1 tablet by mouth every 6 (six) hours as needed for up to 10 days. Max Daily Amount: 4 tablets [facility] methocarbam oL (ROBAXIN) 500 MG tablet 04-02 00:00: 00 04-03 00:00 :00 No 500mg Q.25D Take 1 tablet (500 mg total) by mouth 4 (four) times daily for 10 days. [facility] divalproex (DEPAKOTE) 500 MG EC tablet 04-02 00:00: 00 04-03 00:00 :00 No 500mg Q.5D Take 1 tablet (500 mg total) by mouth 2 (two) times daily for 90 days. [facility] clonazePAM (KlonoPIN) 0.5 MG tablet 04-02 00:00: 00 04-03 00:00 :00 No .25mg Take 0.5 tablets (0.25 mg total) by mouth 2 (two) times daily as needed for Anxiety for up to 30 days. Max Daily Amount: 0.5 mg [facility] gabapentin (NEURONTIN) 300 MG capsule 04-02 00:00: 00 04-03 00:00 :00 No 300mg Q.[id number] 3D Take 1 capsule (300 mg total) by mouth 3 (three) times daily for 90 days. [facility] HYDROcodone -acetaminop hen (NORCO 10-325) 10-325 mg per tablet 04-02 00:00: 00 04-03 00:00 :00 No 1{tbl} Take 1 tablet by mouth every 6 (six) hours as needed for up to 10 days. Max Daily Amount: 4 tablets [facility] methocarbam oL (ROBAXIN) 500 MG tablet 04-02 00:00: 00 04-03 00:00 :00 No 500mg Q.25D Take 1 tablet (500 mg total) by mouth 4 (four) times daily for 10 days. [facility] divalproex (DEPAKOTE) 500 MG EC tablet 04-02 00:00: 00 04-03 00:00 :00 No 500mg Q.5D Take 1 tablet (500 mg total) by mouth 2 (two) times daily for 90 days. [facility] clonazePAM (KlonoPIN) 0.5 MG tablet 04-02 00:00: 00 04-03 00:00 :00 No .25mg Take 0.5 tablets (0.25 mg total) by mouth 2 (two) times daily as needed for Anxiety for up to 30 days. Max Daily Amount: 0.5 mg [facility] gabapentin (NEURONTIN) 300 MG capsule 04-02 00:00: 00 04-03 00:00 :00 No 300mg Q.[id number] 3D Take 1 capsule (300 mg total) by mouth 3 (three) times daily for 90 days. [facility] HYDROcodone -acetaminop hen (NORCO 10-325) 10-325 mg per tablet 04-02 00:00: 00 04-03 00:00 :00 No 1{tbl} Take 1 tablet by mouth every 6 (six) hours as needed for up to 10 days. Max Daily Amount: 4 tablets [facility] methocarbam oL (ROBAXIN) 500 MG tablet 04-02 00:00: 00 04-03 00:00 :00 No 500mg Q.25D Take 1 tablet (500 mg total) by mouth 4 (four) times daily for 10 days. [facility] divalproex (DEPAKOTE) 500 MG EC tablet 04-02 00:00: 00 04-03 00:00 :00 No 500mg Q.5D Take 1 tablet (500 mg total) by mouth 2 (two) times daily for 90 days. [facility] clonazePAM (KlonoPIN) 0.5 MG tablet 04-02 00:00: 00 04-03 00:00 :00 No .25mg Take 0.5 tablets (0.25 mg total) by mouth 2 (two) times daily as needed for Anxiety for up to 30 days. Max Daily Amount: 0.5 mg [facility] gabapentin (NEURONTIN) 300 MG capsule 04-02 00:00: 00 04-03 00:00 :00 No 300mg Q.[id number] 3D Take 1 capsule (300 mg total) by mouth 3 (three) times daily for 90 days. [facility] HYDROcodone -acetaminop hen (NORCO 10-325) 10-325 mg per tablet 04-02 00:00: 00 04-03 00:00 :00 No 1{tbl} Take 1 tablet by mouth every 6 (six) hours as needed for up to 10 days. Max Daily Amount: 4 tablets [facility] methocarbam oL (ROBAXIN) 500 MG tablet 04-02 00:00: 00 04-03 00:00 :00 No 500mg Q.25D Take 1 tablet (500 mg total) by mouth 4 (four) times daily for 10 days. [facility] divalproex (DEPAKOTE) 500 MG EC tablet 04-02 00:00: 00 04-03 00:00 :00 No 500mg Q.5D Take 1 tablet (500 mg total) by mouth 2 (two) times daily for 90 days. [facility] clonazePAM (KlonoPIN) 0.5 MG tablet 04-02 00:00: 00 04-03 00:00 :00 No .25mg Take 0.5 tablets (0.25 mg total) by mouth 2 (two) times daily as needed for Anxiety for up to 30 days. Max Daily Amount: 0.5 mg [facility] gabapentin (NEURONTIN) 300 MG capsule 04-02 00:00: 00 04-03 00:00 :00 No 300mg Q.[id number] 3D Take 1 capsule (300 mg total) by mouth 3 (three) times daily for 90 days. [facility] HYDROcodone -acetaminop hen (NORCO 10-325) 10-325 mg per tablet 04-02 00:00: 00 04-03 00:00 :00 No 1{tbl} Take 1 tablet by mouth every 6 (six) hours as needed for up to 10 days. Max Daily Amount: 4 tablets [facility] methocarbam oL (ROBAXIN) 500 MG tablet 04-02 00:00: 00 04-03 00:00 :00 No 500mg Q.25D Take 1 tablet (500 mg total) by mouth 4 (four) times daily for 10 days. [facility] divalproex (DEPAKOTE) 500 MG EC tablet 04-02 00:00: 00 04-03 00:00 :00 No 500mg Q.5D Take 1 tablet (500 mg total) by mouth 2 (two) times daily for 90 days. [facility] clonazePAM (KlonoPIN) 0.5 MG tablet 04-02 00:00: 00 04-03 00:00 :00 No .25mg Take 0.5 tablets (0.25 mg total) by mouth 2 (two) times daily as needed for Anxiety for up to 30 days. Max Daily Amount: 0.5 mg [facility] gabapentin (NEURONTIN) 300 MG capsule 04-02 00:00: 00 04-03 00:00 :00 No 300mg Q.[id number] 3D Take 1 capsule (300 mg total) by mouth 3 (three) times daily for 90 days. [facility] HYDROcodone -acetaminop hen (NORCO 10-325) 10-325 mg per tablet 04-02 00:00: 00 04-03 00:00 :00 No 1{tbl} Take 1 tablet by mouth every 6 (six) hours as needed for up to 10 days. Max Daily Amount: 4 tablets [facility] methocarbam oL (ROBAXIN) 500 MG tablet 04-02 00:00: 00 04-03 00:00 :00 No 500mg Q.25D Take 1 tablet (500 mg total) by mouth 4 (four) times daily for 10 days. [facility] divalproex (DEPAKOTE) 500 MG EC tablet 04-02 00:00: 00 04-03 00:00 :00 No 500mg Q.5D Take 1 tablet (500 mg total) by mouth 2 (two) times daily for 90 days. [facility] clonazePAM (KlonoPIN) 0.5 MG tablet 04-02 00:00: 00 04-03 00:00 :00 No .25mg Take 0.5 tablets (0.25 mg total) by mouth 2 (two) times daily as needed for Anxiety for up to 30 days. Max Daily Amount: 0.5 mg [facility] gabapentin (NEURONTIN) 300 MG capsule 04-02 00:00: 00 04-03 00:00 :00 No 300mg Q.[id number] 3D Take 1 capsule (300 mg total) by mouth 3 (three) times daily for 90 days. [facility] HYDROcodone -acetaminop hen (NORCO 10-325) 10-325 mg per tablet 04-02 00:00: 00 04-03 00:00 :00 No 1{tbl} Take 1 tablet by mouth every 6 (six) hours as needed for up to 10 days. Max Daily Amount: 4 tablets [facility] methocarbam oL (ROBAXIN) 500 MG tablet 04-02 00:00: 00 04-03 00:00 :00 No 500mg Q.25D Take 1 tablet (500 mg total) by mouth 4 (four) times daily for 10 days. [facility] divalproex (DEPAKOTE) 500 MG EC tablet 04-02 00:00: 00 04-03 00:00 :00 No 500mg Q.5D Take 1 tablet (500 mg total) by mouth 2 (two) times daily for 90 days. [facility] clonazePAM (KlonoPIN) 0.5 MG tablet 04-02 00:00: 00 04-03 00:00 :00 No .25mg Take 0.5 tablets (0.25 mg total) by mouth 2 (two) times daily as needed for Anxiety for up to 30 days. Max Daily Amount: 0.5 mg [facility] gabapentin (NEURONTIN) 300 MG capsule 04-02 00:00: 00 04-03 00:00 :00 No 300mg Q.[id number] 3D Take 1 capsule (300 mg total) by mouth 3 (three) times daily for 90 days. [facility] HYDROcodone -acetaminop hen (NORCO 10-325) 10-325 mg per tablet 04-02 00:00: 00 04-03 00:00 :00 No 1{tbl} Take 1 tablet by mouth every 6 (six) hours as needed for up to 10 days. Max Daily Amount: 4 tablets [facility] methocarbam oL (ROBAXIN) 500 MG tablet 04-02 00:00: 00 04-03 00:00 :00 No 500mg Q.25D Take 1 tablet (500 mg total) by mouth 4 (four) times daily for 10 days. [facility] divalproex (DEPAKOTE) 500 MG EC tablet 04-02 00:00: 00 04-03 00:00 :00 No 500mg Q.5D Take 1 tablet (500 mg total) by mouth 2 (two) times daily for 90 days. [facility] clonazePAM (KlonoPIN) 0.5 MG tablet 04-02 00:00: 00 04-03 00:00 :00 No .25mg Take 0.5 tablets (0.25 mg total) by mouth 2 (two) times daily as needed for Anxiety for up to 30 days. Max Daily Amount: 0.5 mg [facility] gabapentin (NEURONTIN) 300 MG capsule 04-02 00:00: 00 04-03 00:00 :00 No 300mg Q.[id number] 3D Take 1 capsule (300 mg total) by mouth 3 (three) times daily for 90 days. [facility] HYDROcodone -acetaminop hen (NORCO 10-325) 10-325 mg per tablet 04-02 00:00: 00 04-03 00:00 :00 No 1{tbl} Take 1 tablet by mouth every 6 (six) hours as needed for up to 10 days. Max Daily Amount: 4 tablets [facility] methocarbam oL (ROBAXIN) 500 MG tablet 04-02 00:00: 00 04-03 00:00 :00 No 500mg Q.25D Take 1 tablet (500 mg total) by mouth 4 (four) times daily for 10 days. [facility] divalproex (DEPAKOTE) 500 MG EC tablet 04-02 00:00: 00 04-03 00:00 :00 No 500mg Q.5D Take 1 tablet (500 mg total) by mouth 2 (two) times daily for 90 days. [facility] clonazePAM (KlonoPIN) 0.5 MG tablet 04-02 00:00: 00 04-03 00:00 :00 No .25mg Take 0.5 tablets (0.25 mg total) by mouth 2 (two) times daily as needed for Anxiety for up to 30 days. Max Daily Amount: 0.5 mg [facility] gabapentin (NEURONTIN) 300 MG capsule 04-02 00:00: 00 04-03 00:00 :00 No 300mg Q.[id number] 3D Take 1 capsule (300 mg total) by mouth 3 (three) times daily for 90 days. [facility] HYDROcodone -acetaminop hen (NORCO 10-325) 10-325 mg per tablet 04-02 00:00: 00 04-03 00:00 :00 No 1{tbl} Take 1 tablet by mouth every 6 (six) hours as needed for up to 10 days. Max Daily Amount: 4 tablets [facility] methocarbam oL (ROBAXIN) 500 MG tablet 04-02 00:00: 00 04-03 00:00 :00 No 500mg Q.25D Take 1 tablet (500 mg total) by mouth 4 (four) times daily for 10 days. [facility] divalproex (DEPAKOTE) 500 MG EC tablet 04-02 00:00: 00 04-03 00:00 :00 No 500mg Q.5D Take 1 tablet (500 mg total) by mouth 2 (two) times daily for 90 days. [facility] clonazePAM (KlonoPIN) 0.5 MG tablet 04-02 00:00: 00 04-03 00:00 :00 No .25mg Take 0.5 tablets (0.25 mg total) by mouth 2 (two) times daily as needed for Anxiety for up to 30 days. Max Daily Amount: 0.5 mg [facility] gabapentin (NEURONTIN) 300 MG capsule 04-02 00:00: 00 04-03 00:00 :00 No 300mg Q.[id number] 3D Take 1 capsule (300 mg total) by mouth 3 (three) times daily for 90 days. [facility] HYDROcodone -acetaminop hen (NORCO 10-325) 10-325 mg per tablet 04-02 00:00: 00 04-03 00:00 :00 No 1{tbl} Take 1 tablet by mouth every 6 (six) hours as needed for up to 10 days. Max Daily Amount: 4 tablets [facility] methocarbam oL (ROBAXIN) 500 MG tablet 04-02 00:00: 00 04-03 00:00 :00 No 500mg Q.25D Take 1 tablet (500 mg total) by mouth 4 (four) times daily for 10 days. [facility] divalproex (DEPAKOTE) 500 MG EC tablet 04-02 00:00: 00 04-03 00:00 :00 No 500mg Q.5D Take 1 tablet (500 mg total) by mouth 2 (two) times daily for 90 days. [facility] clonazePAM (KlonoPIN) 0.5 MG tablet 04-02 00:00: 00 04-03 00:00 :00 No .25mg Take 0.5 tablets (0.25 mg total) by mouth 2 (two) times daily as needed for Anxiety for up to 30 days. Max Daily Amount: 0.5 mg [facility] gabapentin (NEURONTIN) 300 MG capsule 04-02 00:00: 00 04-03 00:00 :00 No 300mg Q.[id number] 3D Take 1 capsule (300 mg total) by mouth 3 (three) times daily for 90 days. [facility] HYDROcodone -acetaminop hen (NORCO 10-325) 10-325 mg per tablet 04-02 00:00: 00 04-03 00:00 :00 No 1{tbl} Take 1 tablet by mouth every 6 (six) hours as needed for up to 10 days. Max Daily Amount: 4 tablets [facility] methocarbam oL (ROBAXIN) 500 MG tablet 04-02 00:00: 00 04-03 00:00 :00 No 500mg Q.25D Take 1 tablet (500 mg total) by mouth 4 (four) times daily for 10 days. [facility] divalproex (DEPAKOTE) 500 MG EC tablet 04-02 00:00: 00 04-03 00:00 :00 No 500mg Q.5D Take 1 tablet (500 mg total) by mouth 2 (two) times daily for 90 days. [facility] clonazePAM (KlonoPIN) 0.5 MG tablet 04-02 00:00: 00 04-03 00:00 :00 No .25mg Take 0.5 tablets (0.25 mg total) by mouth 2 (two) times daily as needed for Anxiety for up to 30 days. Max Daily Amount: 0.5 mg [facility] gabapentin (NEURONTIN) 300 MG capsule 04-02 00:00: 00 04-03 00:00 :00 No 300mg Q.[id number] 3D Take 1 capsule (300 mg total) by mouth 3 (three) times daily for 90 days. [facility] HYDROcodone -acetaminop hen (NORCO 10-325) 10-325 mg per tablet 04-02 00:00: 00 04-03 00:00 :00 No 1{tbl} Take 1 tablet by mouth every 6 (six) hours as needed for up to 10 days. Max Daily Amount: 4 tablets [facility] methocarbam oL (ROBAXIN) 500 MG tablet 04-02 00:00: 00 04-03 00:00 :00 No 500mg Q.25D Take 1 tablet (500 mg total) by mouth 4 (four) times daily for 10 days. [facility] divalproex (DEPAKOTE) 500 MG EC tablet 04-02 00:00: 00 04-03 00:00 :00 No 500mg Q.5D Take 1 tablet (500 mg total) by mouth 2 (two) times daily for 90 days. [facility] clonazePAM (KlonoPIN) 0.5 MG tablet 04-02 00:00: 00 04-03 00:00 :00 No .25mg Take 0.5 tablets (0.25 mg total) by mouth 2 (two) times daily as needed for Anxiety for up to 30 days. Max Daily Amount: 0.5 mg [facility] gabapentin (NEURONTIN) 300 MG capsule 04-02 00:00: 00 04-03 00:00 :00 No 300mg Q.[id number] 3D Take 1 capsule (300 mg total) by mouth 3 (three) times daily for 90 days. [facility] HYDROcodone -acetaminop hen (NORCO 10-325) 10-325 mg per tablet 04-02 00:00: 00 04-03 00:00 :00 No 1{tbl} Take 1 tablet by mouth every 6 (six) hours as needed for up to 10 days. Max Daily Amount: 4 tablets [facility] methocarbam oL (ROBAXIN) 500 MG tablet 04-02 00:00: 00 04-03 00:00 :00 No 500mg Q.25D Take 1 tablet (500 mg total) by mouth 4 (four) times daily for 10 days. [facility] divalproex (DEPAKOTE) 500 MG EC tablet 04-02 00:00: 00 04-03 00:00 :00 No 500mg Q.5D Take 1 tablet (500 mg total) by mouth 2 (two) times daily for 90 days. [facility] clonazePAM (KlonoPIN) 0.5 MG tablet 04-02 00:00: 00 04-03 00:00 :00 No .25mg Take 0.5 tablets (0.25 mg total) by mouth 2 (two) times daily as needed for Anxiety for up to 30 days. Max Daily Amount: 0.5 mg [facility] gabapentin (NEURONTIN) 300 MG capsule 04-02 00:00: 00 04-03 00:00 :00 No 300mg Q.[id number] 3D Take 1 capsule (300 mg total) by mouth 3 (three) times daily for 90 days. [facility] HYDROcodone -acetaminop hen (NORCO 10-325) 10-325 mg per tablet 04-02 00:00: 00 04-03 00:00 :00 No 1{tbl} Take 1 tablet by mouth every 6 (six) hours as needed for up to 10 days. Max Daily Amount: 4 tablets [facility] methocarbam oL (ROBAXIN) 500 MG tablet 04-02 00:00: 00 04-03 00:00 :00 No 500mg Q.25D Take 1 tablet (500 mg total) by mouth 4 (four) times daily for 10 days. [facility] divalproex (DEPAKOTE) 500 MG EC tablet 04-02 00:00: 00 04-03 00:00 :00 No 500mg Q.5D Take 1 tablet (500 mg total) by mouth 2 (two) times daily for 90 days. [facility] clonazePAM (KlonoPIN) 0.5 MG tablet 04-02 00:00: 00 04-03 00:00 :00 No .25mg Take 0.5 tablets (0.25 mg total) by mouth 2 (two) times daily as needed for Anxiety for up to 30 days. Max Daily Amount: 0.5 mg [facility] lacosamide (VIMPAT) 200 mg in NaCl 0.9% (NS) 50 mL piggyback 12-11 19:45: 00 12-11 19:57 :00 No 200mg 200 mg, IV Piggyback, ONCE, 1 dose, On Arpita 12/11/22 at 1445, Administer over 30 Minutes, 50 mL
Facu lty member approving Restricted medication : Alfonso ALVARADO [facility] ketorolac (TORADOL) injection 15 mg 12-11 18:15: 00 12-11 17:25 :00 No 15mg 15 mg, Slow IV Push, ONCE, 1 dose, On Arpita 12/11/22 at 1315, MICHAEL [facility] iopamidol (ISOVUE 370-500 mL) injection 80 mL 12-11 16:30: 00 12-11 16:27 :00 No [id number] 80mL 80 mL, Intravenou s, ONCE, 1 dose, On Thu12/11/22 at 1130, Routine [facility] nitroglycer in (NITROL) 2 % ointment 0.5 Inch 12-11 15:30: 00 12-11 14:31 :00 No .5[in_u s] 0.5 Inch, Transderma l (Apply To Skin), ONCE, 1 dose, [facility]12/11/22 [facility] 1030[facility] 324 mg 12-11 15:30: 00 12-11 14:30 :00 No 324mg 324 mg, Oral, ONCE, 1 dose, On Thu12/11/22 at 1030, Routine [facility] ondansetron (ZOFRAN (PF)) injection 4 mg 12-11 15:30: 00 12-11 14:29 :00 No 4mg 4 mg, Slow IV Push, ONCE, 1 dose, On Arpita 12/11/22 at 1030, [facility] LOR[facility]am (ATIVAN) injection 1 mg 12-11 15:00: 00 12-11 14:57 :00 No 1mg 1 mg, Slow IV Push, ONCE, 1 dose, On Thu12/11/22 at 1000, STAT [facility] Lacosamide (VIMPAT) 100 mg tablet 12-11 00:00: 00 Yes [id number] 100mg Take 1 tablet by mouth in the morning and 1 tablet in the evening. [facility] acetaminoph en-codeine (TYLENOL #3) 300-30 mg tablet 1 tablet 11-18 05:30: 00 11-18 05:30 :00 No 1{tbl} 1 tablet, Oral, ONCE, 1 dose, On Thu11/18/22 at 0030, [facility] methocarbam oL (ROBAXIN) tablet 1,000 mg 11-18 05:30: 00 11-18 05:30 :00 No 1000mg 1,000 mg, Oral, ONCE, 1 dose, On Thu11/18/22 at 0030, [facility] ondansetron (ZOFRAN (PF)) injection 4 mg 11-18 04:45: 00 11-18 03:38 :00 No 4mg 4 mg, Slow IV Push, ONCE, 1 dose, On Thu11/17/22 at 2345, [facility] morpHINE (4 mg/mL) injection 4 mg 11-18 03:45: 00 11-18 03:38 :00 No 4mg 4 mg, Slow IV Push, ONCE, 1 dose, On Thu11/17/22 at 2245, Routine [facility] methocarbam oL (ROBAXIN) injection 1,000 mg 11-18 00:30: 00 11-17 23:47 :00 No 1000mg 1,000 mg, Intravenou s, ONCE, 1 dose, On Thu11/17/22 at 1930, [facility] methocarbam oL 500 mg tablet 11-18 00:00: 00 Yes [id number] 1000mg Take 2 tablets by mouth 4 (four) times daily as needed for Pain (scale 7-10). [facility] methocarbam oL 500 mg tablet 11-18 00:00: 00 Yes [id number] 1000mg Take 2 tablets by mouth 4 (four) times daily as needed for Pain (scale 7-10). [facility] acetaminoph en-codeine 300-60 mg tablet 11-18 00:00: 00 11-26 04:59 :00 No [id number] 1{tbl} Take 1 tablet by mouth every 6 (six) hours as needed for Pain for up to 7 days. Indication s: acute pain [facility] ketorolac (TORADOL) injection 15 mg 11-18 00:00: 00 11-17 23:08 :00 No 15mg 15 mg, Slow IV Push, ONCE, 1 dose, On Thu11/17/22 at 1900, Routine [facility] morpHINE (4 mg/mL) injection 4 mg 11-17 23:45: 00 11-17 23:49 :00 No 4mg 4 mg, Slow IV Push, ONCE, 1 dose, On Thu11/17/22 at 1845, Routine [facility] ondansetron (ZOFRAN (PF)) injection 4 mg 11-17 23:15: 00 11-17 23:06 :00 No 4mg 4 mg, Slow IV Push, ONCE, 1 dose, On Thu11/17/22 at 1815, MICHAEL [facility] lisinopriL (PRINIVIL,Z ESTRIL) tablet 10 mg 08-02 15:00: 00 Yes 10mg 10 mg, Oral, DAILY, First dose on Thu08/02/22 at 0900, Until Discontinu ed, Routine [facility] predniSONE (DELTASONE) tablet 40 mg 08-02 15:00: 00 08-07 14:59 :00 No 40mg 40 mg, Oral, DAILY, 5 doses, First dose on Thu08/02/22 at 0900, Last dose on Thu08/06/22 at 0900, Routine [facility] morpHINE (2 mg/mL) injection 2 mg 08-02 03:29: 15 Yes 2mg 2 mg, Slow IV Push, Q4HPRN, Starting on Thu08/01/22 at 2129, Until Discontinu ed, Routine, [facility] (scale 7-10) [facility] levETIRAcet [facility] (KEPPRA) in NACL (ISO-OS) 1,000 mg/100 mL RTU 08-02 00:00: 00 Yes 1000mg 1,000 mg, IV Piggyback, Q12H, First dose on Thu08/01/22 at 1800, Until Discontinu ed, Administer over 15 Minutes, [address] [facility] 08-01 23:49: 34 Yes 1{tbl} Take 1 Tab by mouth daily. [facility] omega-3 fatty acids-vitam in E (FISH OIL) 1,000 mg capsule 08-01 23:49: 34 Yes 1g Take 1 g by mouth daily. [facility] loratadine (CLARITIN LIQUI-GEL) 10 mg capsule 08-01 23:49: 34 Yes Take by mouth daily. [facility] ondansetron 4 mg tablet 08-01 23:49: 34 Yes 4mg Take 4 mg by mouth every 8 (eight) hours as needed. [facility] pantoprazol e 40 mg EC tablet 08-01 23:49: 34 Yes 40mg Take 40 mg by mouth daily. [facility] MULTIVITAMI N ORAL 08-01 23:49: 34 Yes 1{tbl} Take 1 Tab by mouth daily. [facility] omega-3 fatty acids-vitam in E (FISH OIL) 1,000 mg capsule 08-01 23:49: 34 Yes 1g Take 1 g by mouth daily. [facility] loratadine (CLARITIN LIQUI-GEL) 10 mg capsule 08-01 23:49: 34 Yes Take by mouth daily. [facility] ondansetron 4 mg tablet 08-01 23:49: 34 Yes 4mg Take 4 mg by mouth every 8 (eight) hours as needed. [facility] pantoprazol e 40 mg EC tablet 08-01 23:49: 34 Yes 40mg Take 40 mg by mouth daily. [facility] MULTIVITAMI N ORAL 08-01 23:49: 34 Yes 1{tbl} Take 1 Tab by mouth daily. [facility] omega-3 fatty acids-vitam in E (FISH OIL) 1,000 mg capsule 08-01 23:49: 34 Yes 1g Take 1 g by mouth daily. [facility] loratadine (CLARITIN LIQUI-GEL) 10 mg capsule 08-01 23:49: 34 Yes Take by mouth daily. [facility] ondansetron 4 mg tablet 08-01 23:49: 34 Yes 4mg Take 4 mg by mouth every 8 (eight) hours as needed. [facility] pantoprazol e 40 mg EC tablet 08-01 23:49: 34 Yes 40mg Take 40 mg by mouth daily. [facility] MULTIVITAMI N ORAL 08-01 23:49: 34 Yes 1{tbl} Take 1 Tab by mouth daily. [facility] omega-3 fatty acids-vitam in E (FISH OIL) 1,000 mg capsule 08-01 23:49: 34 Yes 1g Take 1 g by mouth daily. [facility] loratadine (CLARITIN LIQUI-GEL) 10 mg capsule 08-01 23:49: 34 Yes Take by mouth daily. [facility] ondansetron 4 mg tablet 08-01 23:49: 34 Yes 4mg Take 4 mg by mouth every 8 (eight) hours as needed. [facility] pantoprazol e 40 mg EC tablet 08-01 23:49: 34 Yes 40mg Take 40 mg by mouth daily. [facility] MULTIVITAMI N ORAL 08-01 23:49: 34 Yes 1{tbl} Take 1 Tab by mouth daily. [facility] omega-3 fatty acids-vitam in E (FISH OIL) 1,000 mg capsule 08-01 23:49: 34 Yes 1g Take 1 g by mouth daily. [facility] loratadine (CLARITIN LIQUI-GEL) 10 mg capsule 08-01 23:49: 34 Yes Take by mouth daily. [facility] ondansetron 4 mg tablet 08-01 23:49: 34 Yes 4mg Take 4 mg by mouth every 8 (eight) hours as needed. [facility] pantoprazol e 40 mg EC tablet 08-01 23:49: 34 Yes 40mg Take 40 mg by mouth daily. [facility] benzonatate (TESSALON PERLES) capsule 100 mg 08-01 20:00: 00 Yes 100mg 100 mg, Oral, Q8H, First dose on Thu08/01/22 at 1400, Until Discontinu ed, Routine [facility] ipratropium -albuteroL (DUONEB) 0.5 mg-3 mg(2.5 mg base)/3 mL nebulizer solution 3 mL 08-01 18:00: 00 Yes 3mL 3 mL, Inhalation , QID, First dose on Thu08/01/22 at 1200, Until Discontinu ed, Routine [facility] ipratropium -albuteroL (DUONEB) 0.5 mg-3 mg(2.5 mg base)/3 mL nebulizer solution 3 mL 08-01 17:07: 07 Yes 3mL 3 mL, Inhalation , QIDPRN, Starting on Thu08/01/22 at 1107, Until Discontinu ed, MICHAEL, Wheezing, Shortness of Breath [facility] sulfur hexafluorid e microsphr (LUMASON) injection 5 mL 08-01 17:00: 00 08-01 17:00 :00 No [id number] 5mL 5 mL, Intravenou s, ONCE, 1 dose, On Thu08/01/22 at 1100, Routine
physics faculty member approving Restricted medication : KYLEE MONTEZ [facility] pantoprazol e (PROTONIX) EC tablet 40 mg 08-01 15:00: 00 Yes 40mg 40 mg, Oral, DAILY, First dose on Thu08/01/22 at 0900, Until Discontinu ed, Routine [facility] aspirin chewable tablet 81 mg 08-01 15:00: 00 Yes 81mg 81 mg, Oral, DAILY, First dose on Thu08/01/22 at 0900, Until Discontinu ed, Routine [facility] amLODIPine (NORVASC) tablet 10 mg 08-01 15:00: 00 Yes 10mg 10 mg, Oral, DAILY, First dose on Thu08/01/22 at 0900, Until Discontinu ed, Routine [facility] levETIRAcet am (KEPPRA) tablet 500 mg 08-01 14:00: 00 08-01 23:56 :35 No 500mg 500 mg, Oral, BID, First dose on Thu08/01/22 at 0800, Until Discontinu ed, Routine [facility] carvediloL (COREG) tablet 6.25 mg 08-01 14:00: 00 08-01 17:29 :13 No 6.25mg 6.25 mg, Oral, BID MEALS, First dose on Thu08/01/22 at 0800, Until Discontinu ed, Routine [facility] levETIRAcet am (KEPPRA) in NACL (ISO-OS) 1,000 mg/100 mL RTU 08-01 06:45: 00 08-01 06:32 :00 No 1000mg 1,000 mg, IV Piggyback, ONCE, 1 dose, On Thu08/01/22 at 0045, Administer over 15 Minutes, [address] [facility] LORazepam (ATIVAN) injection 1 mg 08-01 05:52: 54 Yes 1mg 1 mg, Slow IV Push, Q4HPRN, Starting on Thu07/31/22 at 2352, Until Discontinu ed, Routine, Seizures, Agitation, Anxiety, ETOH / Cocaine Withdrawl [facility] foLIC acid (FOLATE) tablet 1 mg 08-01 05:45: 00 Yes 1mg 1 mg, Oral, DAILY, First dose on Thu07/31/22 at 2345, Until Discontinu ed, Routine [facility] thiamine (VITAMIN B1) tablet 100 mg 08-01 05:45: 00 Yes 100mg 100 mg, Oral, DAILY, First dose on Thu07/31/22 at 2345, Until Discontinu ed, Routine [facility] LORazepam (ATIVAN) injection 0.5 mg 08-01 05:30: 00 08-01 05:29 :00 No .5mg 0.5 mg, Slow IV Push, ONCE, 1 dose, On Thu07/31/22 at 2330, MICHAEL [facility] atorvastati n (LIPITOR) tablet 40 mg 08-01 03:00: 00 Yes 40mg 40 mg, Oral, QHS, First dose on Thu07/31/22 at 2100, Until Discontinu ed, Routine [facility] diphenhydrA MINE (BENADRYL) tablet 25 mg 08-01 00:32: 02 Yes 25mg 25 mg, Oral, Q6HPRN, Starting on Thu07/31/22 at 1832, Until Discontinu ed, Routine, Itching [facility] enoxaparin (LOVENOX) injection 40 mg 07-31 23:00: 00 Yes 40mg 40 mg, Subcutaneo us, DAILY, First dose on Thu07/31/22 at 1700, Until Discontinu ed, Routine [facility] morpHINE (2 mg/mL) injection 2 mg 07-31 23:00: 00 07-31 22:29 :00 No 2mg 2 mg, Slow IV Push, ONCE, 1 dose, On Thu07/31/22 at 1700, Routine [facility] HYDROcodone -acetaminop hen (NORCO) 10-325 mg tablet 1 tablet 07-31 22:01: 36 Yes 1{tbl} 1 tablet, Oral, Q6HPRN, Starting on Thu07/31/22 at 1601, Until Discontinu ed, Routine, Pain (scale 7-10) [facility] HYDROcodone -acetaminop hen (NORCO 5) 5-325 mg tablet 1 tablet 07-31 22:01: 34 08-02 22:00 :34 No 1{tbl} 1 tablet, Oral, Q6HPRN, Starting on [place] 07/31/22 at 1601, Until 08/02/22 at 1600, Routine, Pain (scale 4-6) [facility] acetaminoph en (TYLENOL) tablet 650 mg 07-31 22:01: 33 Yes 650mg 650 mg, Oral, Q6HPRN, Starting on Arpita 07/31/22 at 1601, Until Discontinu ed, Routine, Pain (scale 1-3) [facility] ketorolac (TORADOL) injection 15 mg 07-31 21:45: 00 07-31 20:50 :00 No 15mg 15 mg, Slow IV Push, ONCE, 1 dose, On Arpita 07/31/22 at 1545, Routine [facility] ondansetron (ZOFRAN (PF)) injection 4 mg 07-31 21:00: 00 07-31 20:47 :00 No 4mg 4 mg, Slow IV Push, ONCE, 1 dose, On Arpita 07/31/22 at 1500, MICHAEL [facility] furosemide (LASIX) injection 40 mg 07-31 20:15: 00 Yes 40mg 40 mg, Slow IV Push, Q12H, First dose on [place] 07/31/22 at 1415, Until Discontinu ed, Routine [facility] methylpredn isolone sod succ (SOLU-MEDRO L) injection 125 mg 07-31 19:30: 00 07-31 18:54 :00 No 125mg 125 mg, Slow IV Push, ONCE NOW, 1 dose, On Arpita 07/31/22 at 1330, MICHAEL [facility] ipratropium -albuteroL (DUONEB) 0.5 mg-3 mg(2.5 mg base)/3 mL nebulizer solution 3 mL 07-31 19:30: 00 07-31 18:48 :00 No 3mL 3 mL, Inhalation , ONCE, 1 dose, On Arpita 07/31/22 at 1330, MICHAEL [facility] pantoprazol e 40 mg EC tablet 07-31 17:15: 40 Yes 40mg Take 40 mg by mouth daily. [facility] MULTIVITAMI N ORAL 07-31 15:50: 57 Yes 1{tbl} Take 1 Tab by mouth daily. [facility] loratadine (CLARITIN LIQUI-GEL) 10 mg capsule 07-31 15:50: 57 Yes Take by mouth daily. [facility] ondansetron 4 mg tablet 07-31 15:50: 57 Yes 4mg Take 4 mg by mouth every 8 (eight) hours as needed. [facility] omega-3 fatty acids-vitam in E (FISH OIL) 1,000 mg capsule 07-31 15:21: 27 Yes 1g Take 1 g by mouth daily. [facility] TAKE ONE (1) TABLET(S) BY MOUTH THREE TIMES A DAY NEEDED. 07-28 00:00: 00 No Methylpredn isolone 4 mg tablet 2021-07 00:00: 00 05-12 04:59 :00 No [id number] 4mg Take 1 tablet through enteral tube in the morning for 1 dose. [facility] Methylpredn isolone 4 mg tablet 2021-07 00:00: 00 05-11 04:59 :00 No [id number] 4mg Take 1 tablet through enteral tube every 12 (twelve) hours for 2 doses. [facility] MULTIVITAMI N ORAL 2021-07 14:44: 48 Yes 1{tbl} Take 1 Tab by mouth daily. [facility] omega-3 fatty acids-vitam in E (FISH OIL) 1,000 mg capsule 2021-07 14:44: 48 Yes 1g Take 1 g by mouth daily. [facility] loratadine (CLARITIN LIQUI-GEL) 10 mg capsule 2021-07 14:44: 48 Yes Take by mouth daily. [facility] ondansetron (ZOFRAN) 4 mg tablet 2021-07 14:44: 48 Yes 4mg Take 4 mg by mouth every 8 (eight) hours as needed. [facility] pantoprazol e (PROTONIX) 40 mg EC tablet 2021-07 14:44: 48 Yes 40mg Take 40 mg by mouth daily. [facility] DULoxetine (CYMBALTA) capsule 30 mg 2021-07 14:00: 00 Yes 30mg 30 mg, Oral, DAILY, First dose on Thu05/08/22 at 0900, Until Discontinu ed, Routine [facility] divalproex (DEPAKOTE) EC tablet 1,000 mg 2021-07 13:00: 00 Yes 1000mg 1,000 mg, Oral, BID, First dose (after last modificati on) on Thu05/08/22 at 0800, Until Discontinu ed, Routine [facility] Methylpredn isolone (MEDROL) tablet 4 mg 2021-07 08:50: 10 05-09 08:59 :00 No 4mg 4 mg, Oral, Q8H TAPER, 3 doses, First dose on Thu05/08/22 at 0400, Last dose on Thu05/08/22 at 2000, Routine [facility] acetaminoph en-codeine (TYLENOL #3) 300-30 mg tablet 1 tablet 2021-07 04:07: 01 Yes 1{tbl} 1 tablet, Oral, Q4HPRN, Starting on Thu05/07/22 at 2307, Until Discontinu ed, Routine, Pain (scale 7-10) [facility] morpHINE (2 mg/mL) injection 2 mg 2021-07 03:03: 15 Yes 2mg 2 mg, Slow IV Push, Q4HPRN, Starting on Thu05/07/22 at 2203, Until Discontinu ed, Routine, Pain (scale 7-10) [facility] LORazepam (ATIVAN) tablet 1 mg 2021-07 00:02: 18 Yes 1mg 1 mg, Oral, Q6HPRN, Starting on Thu05/07/22 at 1902, Until Discontinu ed, Routine, Anxiety [facility] cyclobenzap rine 5 mg tablet 2021-07 00:00: 00 Yes [id number] 5mg Take 1 tablet by mouth in the morning and 1 tablet at noon and 1 tablet in the evening. [facility] cyclobenzap rine 5 mg tablet 2021-07 00:00: 00 Yes [id number] 5mg Take 1 tablet by mouth in the morning and 1 tablet at noon and 1 tablet in the evening. [facility] cyclobenzap rine 5 mg tablet 2021-07 00:00: 00 Yes [id number] 5mg Take 1 tablet by mouth in the morning and 1 tablet at noon and 1 tablet in the evening. [facility] cyclobenzap rine 5 mg tablet 2021-07 00:00: 00 Yes [id number] 5mg Take 1 tablet by mouth in the morning and 1 tablet at noon and 1 tablet in the evening. [facility] cyclobenzap rine 5 mg tablet 2021-07 00:00: 00 Yes [id number] 5mg Take 1 tablet by mouth in the morning and 1 tablet at noon and 1 tablet in the evening. [facility] cyclobenzap rine 5 mg tablet 2021-07 00:00: 00 Yes [id number] 5mg Take 1 tablet by mouth in the morning and 1 tablet at noon and 1 tablet in the evening. [facility] cyclobenzap rine 5 mg tablet 2021-07 00:00: 00 Yes [id number] 5mg Take 1 tablet by mouth in the morning and 1 tablet at noon and 1 tablet in the evening. [facility] DULoxetine (CYMBALTA) 30 mg capsule 2021-07 00:00: 00 06-08 05:59 :00 No [id number] 60mg Take 2 capsules by mouth in the morning for 30 days. [facility] divalproex (DEPAKOTE) 250 mg EC tablet 2021-07 00:00: 00 06-08 05:59 :00 No [id number] 750mg Take 3 tablets by mouth every 8 (eight) hours for 30 days. [facility] LORazepam 1 mg tablet 2021-07 00:00: 00 05-19 04:59 :00 No [id number] 1mg Take 1 tablet by mouth every 6 (six) hours as needed for Anxiety or Agitation for up to 10 days. [facility] acetaminoph en-codeine 300-30 mg tablet 2021-07 00:00: 00 05-16 04:59 :00 No [id number] 1{tbl} Take 1 tablet by mouth every 4 (four) hours as needed for Pain (scale 7-10) for up to 7 days. Indication s: acute pain [facility] Methylpredn isolone 4 mg tablet 2021-07 00:00: 00 05-10 04:59 :00 No [id number] 4mg Take 1 tablet by mouth every 8 (eight) hours for 3 doses. [facility] divalproex (DEPAKOTE) EC tablet 750 mg 2021-07 01:00: 00 05-08 09:40 :23 No 750mg 750 mg, Oral, BID, First dose on Thu05/06/22 at 2000, Until Discontinu ed, Routine [facility] levETIRAcet am (KEPPRA) tablet 1,500 mg 2021-07 13:00: 00 05-06 18:38 :22 No 1500mg 1,500 mg, Oral, BID, First dose (after last modificati on) on Thu05/06/22 at 0800, Until Discontinu ed, Routine [facility] levETIRAcet am (KEPPRA) in NACL (ISO-OS) 1,000 mg/100 mL RTU 2021-07 05:00: 00 05-06 05:46 :00 No 1000mg 1,000 mg, IV Piggyback, ONCE, 1 dose, On Thu05/06/22 at 0000, Administer over 15 Minutes, 100 mL [facility] methocarbam oL (ROBAXIN) tablet 500 mg 2021-07 02:15: 00 2022- 10-18 23:21 :42 No 500mg 500 mg, Oral, QID, First dose on Thu05/05/22 at 2115, Until Discontinu ed, Routine [facility] LORazepam (ATIVAN) tablet 2 mg 2021-07 01:30: 00 05-06 01:03 :00 No 2mg 2 mg, Oral, ONCE, 1 dose, On Thu05/05/22 at 2030, Routine [facility] levETIRAcet am (KEPPRA) tablet 1,000 mg 2021-07 01:00: 00 05-06 04:48 :06 No 1000mg 1,000 mg, Oral, BID, First dose on Thu05/05/22 at 2000, Until Discontinu ed, Routine [facility] enoxaparin (LOVENOX) injection 40 mg 2021-07 00:15: 00 Yes 40mg 40 mg, Subcutaneo us, Q24H, First dose on Thu05/05/22 at 1915, Until Discontinu ed, Routine [facility] levETIRAcet am (KEPPRA) in NACL (ISO-OS) 1,000 mg/100 mL RTU 2021-07 19:45: 00 05-05 20:05 :00 No 1000mg 1,000 mg, IV Piggyback, ONCE, 1 dose, On Thu05/05/22 at 1445, Administer over 15 Minutes, 100 mL [facility] clonazePAM (KLONOPIN) tablet 0.5 mg 2021-07 19:30: 00 Yes .5mg 0.5 mg, Oral, BID, First dose on Thu05/05/22 at 1430, Until Discontinu ed, Routine [facility] ibuprofen (IBU) tablet 600 mg 2021-07 19:30: 00 Yes 600mg 600 mg, Oral, TID MEALS, First dose on Thu05/05/22 at 1430, Until Discontinu ed, Routine [facility] gabapentin (NEURONTIN) capsule 300 mg 2021-07 19:30: 00 Yes 300mg 300 mg, Oral, TID, First dose on Thu05/05/22 at 1430, Until Discontinu ed, Routine [facility] cyclobenzap rine (FLEXERIL) tablet 5 mg 2021-07 19:30: 00 Yes 5mg 5 mg, Oral, TID, First dose on Thu05/05/22 at 1430, Until Discontinu ed, Routine [facility] acetaminoph en (TYLENOL) tablet 1,000 mg 2021-07 19:30: 00 Yes 1000mg 1,000 mg, Oral, Q8H, First dose on Thu05/05/22 at 1430, Until Discontinu ed, Routine [facility] pantoprazol e (PROTONIX) EC tablet 40 mg 2021-07 14:00: 00 Yes 40mg 40 mg, Oral, DAILY, First dose on Thu05/05/22 at 0900, Until Discontinu ed, Routine [facility] docusate (COLACE) capsule 100 mg 2021-07 14:00: 00 Yes 100mg 100 mg, Oral, DAILY, First dose on Thu05/05/22 at 0900, Until Discontinu ed, Routine [facility] HYDROcodone -acetaminop hen (NORCO) 10-325 mg tablet 1 tablet 2021-07 10:32: 02 05-05 19:18 :52 No 1{tbl} 1 tablet, Oral, Q6HPRN, Starting on Thu05/05/22 at 0532, Until Thu05/05/22 at 1418, Routine, Pain (scale 7-10) [facility] ondansetron (ZOFRAN (PF)) injection 4 mg 2021-07 06:49: 57 Yes 4mg 4 mg, Slow IV Push, Q6HPRN, Starting on Thu05/05/22 at 0149, Until Discontinu ed, Routine, Nausea and Vomiting (N/V) [facility] HYDROcodone -acetaminop hen (NORCO 5) 5-325 mg tablet 1 tablet 2021-07 06:49: 41 05-05 10:32 :14 No 1{tbl} 1 tablet, Oral, Q6HPRN, Starting on Thu05/05/22 at 0149, Until Thu05/05/22 at 0532, Routine, Pain (scale 7-10) [facility] acetaminoph en (TYLENOL) tablet 325 mg 2021-07 06:49: 39 05-05 19:18 :52 No 325mg 325 mg, Oral, Q4HPRN, Starting on Thu05/05/22 at 0149, Until Thu05/05/22 at 1418, Routine, Pain (scale 4-6) [facility] ondansetron (ZOFRAN) tablet 4 mg 2021-07 04:00: 00 05-05 03:26 :00 No 4mg 4 mg, Oral, ONCE, 1 dose, On Thu05/04/22 at 2300, Routine [facility] morpHINE (2 mg/mL) injection 2 mg 2021-07 04:00: 00 05-05 03:26 :00 No 2mg 2 mg, Slow IV Push, ONCE, 1 dose, On 05/04/22 at 2300, Routine [facility] aspirin 81 mg chewable tablet 0 04-16 00:00: 00 Yes [id number] 81mg Take 1 tablet by mouth in the morning. [facility] aspirin 81 mg chewable tablet 2021-0 04-16 00:00: 00 Yes [id number] 81mg Take 1 tablet by mouth in the morning. [facility] aspirin 81 mg chewable tablet 2021-0 04-16 00:00: 00 Yes [id number] 81mg Take 1 tablet by mouth in the morning. [facility] aspirin 81 mg chewable tablet 2021-0 04-16 00:00: 00 Yes [id number] 81mg Take 1 tablet by mouth in the morning. [facility] aspirin 81 mg chewable tablet 2021-0 04-16 00:00: 00 Yes [id number] 81mg Take 1 tablet by mouth in the morning. [facility] aspirin 81 mg chewable tablet 2-0 28 00:00: 00 Yes [id number] 81mg Take 1 tablet by mouth in the morning. [facility] aspirin 81 mg chewable tablet 04-16 00:00: 00 Yes [id number] 81mg Take 1 tablet by mouth in the morning. [facility] aspirin 81 mg chewable tablet 04-16 00:00: 00 Yes [id number] 81mg Take 1 tablet by mouth in the morning. [facility] MULTIVITAMI N ORAL 04-15 17:39: 14 Yes 1{tbl} Take 1 Tab by mouth daily. [facility] omega-3 fatty acids-vitam in E (FISH OIL) 1,000 mg capsule 04-15 17:39: 14 Yes 1g Take 1 g by mouth daily. [facility] loratadine (CLARITIN LIQUI-GEL) 10 mg capsule 04-15 17:39: 14 Yes Take by mouth daily. [facility] ondansetron (ZOFRAN) 4 mg tablet 04-15 17:39: 14 Yes 4mg Take 4 mg by mouth every 8 (eight) hours as needed. [facility] pantoprazol e (PROTONIX) 40 mg EC tablet 04-15 17:39: 14 Yes 40mg Take 40 mg by mouth daily. [facility] lisinopril- hydrochloro thiazide 20-12.5 mg per tablet 04-15 15:58: 35 04-15 00:00 :00 No 1{tbl} Take 1 tablet by mouth daily. [facility] levetiracet am (KEPPRA ORAL) 04-15 15:58: 35 04-15 00:00 :00 No Take by mouth. [facility] acetaminoph en-codeine (TYLENOL #4) 300-60 mg tablet 1 tablet 04-15 05:39: 23 04-15 14:39 :42 No 1{tbl} 1 tablet, Oral, Q6HPRN, Starting on Thu04/15/22 at 0039, Until Thu04/15/22 at 0939, Routine, Pain (scale 4-6), Pain (scale 1-3) [facility] LORazepam (ATIVAN) tablet 2 mg 04-15 03:30: 00 04-15 10:27 :00 No 2mg 2 mg, Oral, ONCE, 1 dose, On Thu04/14/22 at 2230, Routine [facility] levETIRAcet am (KEPPRA) tablet 1,000 mg 04-15 02:45: 00 Yes 1000mg 1,000 mg, Oral, BID, First dose (after last modificati on) on Thu04/14/22 at 2145, Until Discontinu ed, Routine [facility] ketorolac (TORADOL) injection 15 mg 04-15 02:13: 00 04-15 02:22 :00 No 15mg 15 mg, Slow IV Push, ONCE, 1 dose, On Thu04/14/22 at 2115, Routine [facility] levETIRAcet am 1,000 mg tablet 04-15 00:00: 00 Yes [id number] 1000mg Take 1 tablet by mouth in the morning and 1 tablet in the evening. [facility] atorvastati n 40 mg tablet 04-15 00:00: 00 Yes [id number] 40mg Take 1 tablet by mouth at bedtime. [facility] atorvastati n 40 mg tablet 04-15 00:00: 00 Yes [id number] 40mg Take 1 tablet by mouth at bedtime. [facility] atorvastati n 40 mg tablet 04-15 00:00: 00 Yes [id number] 40mg Take 1 tablet by mouth at bedtime. [facility] atorvastati n 40 mg tablet 04-15 00:00: 00 Yes [id number] 40mg Take 1 tablet by mouth at bedtime. [facility] atorvastati n 40 mg tablet 04-15 00:00: 00 Yes [id number] 40mg Take 1 tablet by mouth at bedtime. [facility] atorvastati n 40 mg tablet 04-15 00:00: 00 Yes [id number] 40mg Take 1 tablet by mouth at bedtime. [facility] atorvastati n 40 mg tablet 04-15 00:00: 00 Yes [id number] 40mg Take 1 tablet by mouth at bedtime. [facility] atorvastati n 40 mg tablet 04-15 00:00: 00 Yes [id number] 40mg Take 1 tablet by mouth at bedtime. [facility] levETIRAcet am 1,000 mg tablet 04-15 00:00: 00 05-08 00:00 :00 No [id number] 1000mg Take 1 tablet by mouth in the morning and 1 tablet in the evening. [facility] lidocaine 5 % (700 mg/patch) patch 04-15 00:00: 00 04-23 04:59 :00 No [id number] 1{patch } Apply 1 Patch to area(s) in the morning for 7 days. [facility] HYDROcodone -acetaminop hen 5-325 mg tablet 04-15 00:00: 00 04-21 04:59 :00 No [id number] 1{tbl} Take 1 tablet by mouth every 6 (six) hours as needed for Pain (scale 7-10) for up to 5 days. Indication s: acute pain [facility] lidocaine (LIDODERM) 5 % (700 mg/patch) patch 1 Patch 04-14 21:45: 29 Yes 1{patch } 1 Patch, Topical, Administer over 12 Hours, [id number], Starting on Thu04/14/22 at 1645, Until Discontinu ed, Routine, Localized pain [facility] aspirin chewable tablet 81 mg 04-14 21:30: 00 Yes 81mg 81 mg, Oral, DAILY, First dose on Thu04/14/22 at 1630, Until Discontinu ed, Routine [facility] acetaminoph en (TYLENOL) tablet 650 mg 04-14 21:29: 25 Yes 650mg 650 mg, Oral, Q6HPRN, Starting on Thu04/14/22 at 1629, Until Discontinu ed, Routine, Pain (scale 1-3), Temp > 38.5 C, Temp > 37.5 C [facility] HYDROcodone -acetaminop hen (NORCO) 10-325 mg tablet 1 tablet 04-14 21:29: 02 04-15 05:39 :41 No 1{tbl} 1 tablet, Oral, Q6HPRN, Starting on Thu04/14/22 at 1629, Until Thu04/15/22 at 0039, Routine, Pain (scale 7-10), Pain (scale 4-6) [facility] sulfur hexafluorid e microsphr (LUMASON) injection 5 mL 04-14 16:45: 00 04-14 16:45 :00 No [id number] 5mL 5 mL, Intravenou s, ONCE, 1 dose, On Thu04/14/22 at 1145, Routine
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 pantoprazol e (PROTONIX) EC tablet 40 mg 04-14 14:00: 00 Yes 40mg 40 mg, Oral, DAILY, First dose on Thu04/14/22 at 0900, Until Discontinu ed, Routine [facility] atorvastati n (LIPITOR) tablet 40 mg 04-14 02:00: 00 Yes 40mg 40 mg, Oral, QHS, First dose on Thu04/13/22 at 2100, Until Discontinu ed, Routine [facility] LORazepam (ATIVAN) tablet 1 mg 04-14 01:30: 00 04-14 01:45 :00 No 1mg 1 mg, Oral, ONCE, 1 dose, On Thu04/13/22 at 2030, Routine [facility] methocarbam oL (ROBAXIN) tablet 500 mg 04-14 01:00: 00 Yes 500mg 500 mg, Oral, QID, First dose on Thu04/13/22 at 2000, Until Discontinu ed, Routine [facility] heparin (porcine) injection 5,000 Units 04-14 01:00: 00 Yes 5000U 5,000 Units, Subcutaneo us, Q12H, First dose on Thu04/13/22 at 2000, Until Discontinu ed, Routine [facility] acetaminoph en (TYLENOL) tablet 650 mg 04-14 00:23: 25 04-14 21:29 :42 No 650mg 650 mg, Oral, Q6HPRN, Starting on 04/13/22 at 1923, Until 04/14/22 at 1629, Routine, Pain (scale 1-3), Pain (scale 4-6), Temp > 38.5 C, Temp > 37.5 C [facility] lidocaine (LIDODERM) 5 % (700 mg/patch) patch 1 Patch 04-14 00:22: 00 04-14 13:51 :00 No 1{patch } 1 Patch, Topical, Administer over 12 Hours, ONCE, 1 dose, On Thu04/13/22 at 1930, Routine [facility] FENTanyl PF (SUBLIMAZE (PF)) injection 50 mcg 04-13 20:30: 00 04-13 19:22 :00 No 50ug 50 mcg, Slow IV Push, ONCE, 1 dose, On Thu04/13/22 at 1530, Routine [facility] aspirin chewable tablet 650 mg 04-13 20:15: 00 04-13 20:15 :00 No 650mg 650 mg, Oral, ONCE, 1 dose, On Thu04/13/22 at 1515, Routine [facility] clopidogreL (PLAVIX) 300 mg tablet 300 mg 04-13 20:00: 00 04-13 19:15 :00 No 300mg 300 mg, Oral, ONCE, 1 dose, On Thu04/13/22 at 1500, Routine [facility] ondansetron (ZOFRAN (PF)) injection 4 mg 04-13 19:30: 00 04-13 19:22 :00 No 4mg 4 mg, Slow IV Push, ONCE, 1 dose, On 04/13/22 at 1430, [facility] iopamidol (ISOVUE 370-500 mL) injection 100 mL 04-13 18:31: 00 04-13 18:32 :00 No [id number] 100mL 100 mL, Intravenou s, ONCE, 1 dose, On 04/13/22 at 1345, Routine [facility] NaCl 0.9% (NS) injection 5 mL 04-13 18:14: 11 Yes 5mL 5 mL, Slow IV Push, PRN - SEE INSTRUCTIO NS, Starting on 04/13/22 at 1314, Until Discontinu ed, 10 mL [facility] aspirin chewable tablet 324 mg 11-24 14:00: 00 Yes 324mg 324 mg, Oral, DAILY, First dose on [place] 11/24/21 at 0900, Until Discontinu ed, Routine [facility] metoclopram iker HCl (REGLAN) injection 10 mg 11-23 22:30: 00 11-23 21:24 :00 No 10mg 10 mg, Slow IV Push, ONCE, 1 dose, On 11/23/21 at 1730, [facility] acetaminoph en (TYLENOL) tablet 1,000 mg 11-23 22:15: 00 11-23 21:09 :00 No 1000mg 1,000 mg, Oral, ONCE, 1 dose, On 11/23/21 at 1715, [facility] ondansetron (ZOFRAN (PF)) injection 4 mg 11-23 21:45: 00 11-23 20:30 :00 No 4mg 4 mg, Slow IV Push, ONCE, 1 dose, On 11/23/21 at 1645, [facility] NaCl 0.9% (NS) bolus infusion 1,000 mL 11-23 21:30: 00 11-23 21:56 :00 No 1000mL at 999 mL/hr, 1,000 mL, IV Infusion, ONCE, 1 dose, On 11/23/21 at 1630, MICHAEL [facility] LORazepam (ATIVAN) injection 4 mg 11-23 21:30: 00 11-23 20:23 :00 No 4mg 4 mg, Slow IV Push, ONCE, 1 dose, On 11/23/21 at 1630, STAT [facility] levETIRAcet am (KEPPRA) in NACL (ISO-OS) 1,500 mg/100 mL RTU 11-23 21:30: 00 11-23 20:47 :00 No 1500mg 1,500 mg, IV Piggyback, ONCE, 1 dose, On 11/23/21 at 1630, Administer over 15 Minutes, 100 mL [facility] Dose Unknown 2021-0 4-08 00:00: 00 No Dose Unknown 2021-0 4-08 00:00: 00 No Prozac 20 mg capsule 2021-0 3-21 00:00: 00 No 1mg Prozac 20 mg capsule 2021-0 3-21 00:00: 00 No 1mg Dose Unknown 2022-0 3-16 00:00: 00 No Dose Unknown 2022-0 3-16 00:00: 00 No Dose Unknown 2022-0 3-16 00:00: 00 No Dose Unknown 2022-0 3-16 00:00: 00 No Dose Unknown 2022-0 3-15 00:00: 00 No Dose Unknown 2022-0 3-15 00:00: 00 No Dose Unknown 2022-0 3-15 00:00: 00 No Dose Unknown 2022-0 3-15 00:00: 00 No Dose Unknown 2022-0 3-15 00:00: 00 No Dose Unknown 2022-0 3-15 00:00: 00 No Dose Unknown 2022-0 3-15 00:00: 00 No Dose Unknown 2022-0 3-15 00:00: 00 No Dose Unknown 2022-0 3-15 00:00: 00 No Dose Unknown 2022-0 3-15 00:00: 00 No Dose Unknown 2022-0 3-15 00:00: 00 No Dose Unknown 2022-0 3-15 00:00: 00 No Dose Unknown 2022-0 3-15 00:00: 00 No Dose Unknown 2022-0 3-15 00:00: 00 No Dose Unknown 2022-0 3-15 00:00: 00 No Dose Unknown 2022-0 3-15 00:00: 00 No Dose Unknown 2022-0 3-15 00:00: 00 No Dose Unknown 2022-0 3-15 00:00: 00 No Dose Unknown 2022-0 3-15 00:00: 00 No Dose Unknown 2022-0 3-15 00:00: 00 No Dose Unknown 2022-0 3-14 00:00: 00 No Dose Unknown 2022-0 3-14 00:00: 00 No Dose Unknown 2022-0 3-14 00:00: 00 No Dose Unknown 2022-0 3-14 00:00: 00 No Dose Unknown 2022-0 3-14 00:00: 00 No Dose Unknown 2022-0 3-14 00:00: 00 No Dose Unknown 2022-0 3-14 00:00: 00 No Dose Unknown 2022-0 3-14 00:00: 00 No Dose Unknown 2022-0 3-14 00:00: 00 No Dose Unknown 2022-0 3-14 00:00: 00 No Dose Unknown 2022-0 3-14 00:00: 00 No Dose Unknown 2022-0 3-14 00:00: 00 No Dose Unknown 2022-0 3-14 00:00: 00 No Dose Unknown 2022-0 3-14 00:00: 00 No Dose Unknown 2022-0 3-14 00:00: 00 No Dose Unknown 2022-0 3-14 00:00: 00 No Dose Unknown 2022-0 3-14 00:00: 00 No Dose Unknown 2022-0 3-14 00:00: 00 No hydroxyzine HCl 50 mg tablet 2022-0 3-09 00:00: 00 No 1mg Prozac 20 mg capsule 2022-0 3-09 00:00: 00 No 1mg hydroxyzine HCl 50 mg tablet 2022-0 3-09 00:00: 00 No 1mg Prozac 20 mg capsule 2022-0 3-09 00:00: 00 No 1mg Dose Unknown 2022-0 3-06 00:00: 00 No Dose Unknown 2022-0 3-06 00:00: 00 No Dose Unknown 2022-0 3-06 00:00: 00 No Dose Unknown 0 3-06 00:00: 00 No Dose Unknown 0 3-06 00:00: 00 No Dose Unknown 0 3-06 00:00: 00 No Dose Unknown 0 3-06 00:00: 00 No Dose Unknown 0 3-06 00:00: 00 No Dose Unknown 0 3- 00:00: 00 No Dose Unknown 0 3- 00:00: 00 No Wellbutrin XL 150 mg 24 hr tablet, extended release 2020-07 00:00: 00 No 1mg Dose Unknown 2020-07 00:00: 00 No Wellbutrin XL 150 mg 24 hr tablet, extended release 2020-07 00:00: 00 No 1mg Dose Unknown 2020-07 00:00: 00 No ibuprofen 800 mg tablet 2020-07 2 00:00: 00 No 1mg ibuprofen 800 mg tablet 2020-07 2 00:00: 00 No 1mg levetiracet am 500 mg tablet 2020-07 00:00: 00 No 1mg Dose Unknown 2020-07 00:00: 00 No levetiracet am 500 mg tablet 2020-07 00:00: 00 No 1mg Dose Unknown 2020-07 00:00: 00 No levoFLOXaci n (LEVAQUIN) tablet 500 mg 03-17 04:00: 00 03-17 04:22 :00 No 500mg 500 mg, Oral, ONCE, 1 dose, 03/16/21 at 2315, MICHAEL
Re ason for Anti-Infec tive: Documented Infection< br>Documen sherice Infection Site: Respirator y
Durat ion of Therapy: 7 days [facility] levoFLOXaci n (LEVAQUIN) tablet 500 mg 03-17 04:00: 00 03-17 04:22 :00 No 500mg 500 mg, Oral, ONCE, 1 dose, 03/16/21 at 2315, MICHAEL
Re ason for Anti-Infec tive: Documented Infection< br>Documen sherice Infection Site: Respirator y
Durat ion of Therapy: 7 days [facility] morpHINE injection 4 mg 03-17 01:58: 00 03-17 02:13 :00 No 4mg 4 mg, Slow IV Push, ONCE, 1 dose, 03/16/21 at 2100, [facility] ondansetron (ZOFRAN (PF)) injection 4 mg 03-17 01:58: 00 03-17 02:12 :00 No 4mg 4 mg, Slow IV Push, ONCE, 1 dose, 03/16/21 at 2100, [facility] morpHINE injection 4 mg 03-17 01:58: 00 03-17 02:13 :00 No 4mg 4 mg, Slow IV Push, ONCE, 1 dose, 03/16/21 at 2100, [facility] ondansetron (ZOFRAN (PF)) injection 4 mg 03-17 01:58: 00 03-17 02:12 :00 No 4mg 4 mg, Slow IV Push, ONCE, 1 dose, 03/16/21 at 2100, [facility] ipratropium -albuteroL (DUONEB) 0.5 mg-3 mg(2.5 mg base)/3 mL nebulizer solution 3 mL 03-17 01:57: 00 03-17 02:15 :00 No 3mL 3 mL, Inhalation , ONCE, 1 dose, 03/16/21 at 2100, [facility] NaCl 0.9% (NS) IV infusion 1,000 mL 03-17 01:57: 00 03-17 03:07 :00 No 1000mL at 999 mL/hr, Intravenou s, ONCE, 1 dose, 03/16/21 at 2100, [facility] methylpredn isolone sod succ (SOLU-MEDRO L) injection 125 mg 03-17 01:57: 00 03-17 02:11 :00 No 125mg 125 mg, Slow IV Push, ONCE, 1 dose, 03/16/21 at 2100, [facility] ipratropium -albuteroL (DUONEB) 0.5 mg-3 mg(2.5 mg base)/3 mL nebulizer solution 3 mL 03-17 01:57: 00 03-17 02:15 :00 No 3mL 3 mL, Inhalation , ONCE, 1 dose, 03/16/21 at 2100, [facility] ipratropium -albuteroL (DUONEB) 0.5 mg-3 mg(2.5 mg base)/3 mL nebulizer solution 3 mL 03-17 01:57: 00 03-17 02:15 :00 No 3mL 3 mL, Inhalation , ONCE, 1 dose, 03/16/21 at 2100, [facility] NaCl 0.9% (NS) IV infusion 1,000 mL 03-17 01:57: 00 03-17 03:07 :00 No 1000mL at 999 mL/hr, Intravenou s, ONCE, 1 dose, 03/16/21 at 2100, [facility] methylpredn isolone sod succ (SOLU-MEDRO L) injection 125 mg 03-17 01:57: 00 03-17 02:11 :00 No 125mg 125 mg, Slow IV Push, ONCE, 1 dose, 03/16/21 at 2100, [facility] ipratropium -albuteroL (DUONEB) 0.5 mg-3 mg(2.5 mg base)/3 mL nebulizer solution 3 mL 03-17 01:57: 00 03-17 02:15 :00 No 3mL 3 mL, Inhalation , ONCE, 1 dose, 03/16/21 at 2100, [facility] levoFLOXaci n 500 mg tablet 03-17 00:00: 00 03-24 04:59 :00 No [id number] 500mg Take 1 tablet by mouth daily for 6 days. [facility] levoFLOXaci n 500 mg tablet 03-17 00:00: 00 03-24 04:59 :00 No [id number] 500mg Take 1 tablet by mouth daily for 6 days. [facility] levoFLOXaci n 500 mg tablet 03-17 00:00: 00 03-24 04:59 :00 No [id number] 500mg Take 1 tablet by mouth daily for 6 days. [facility] levoFLOXaci n 500 mg tablet 03-17 00:00: 00 03-24 04:59 :00 No [id number] 500mg Take 1 tablet by mouth daily for 6 days. [facility] predniSONE 10 mg tablet 03-17 00:00: 00 03-22 04:59 :00 No [id number] 30mg Take 3 tablets by mouth daily for 4 days. [facility] predniSONE 10 mg tablet 03-17 00:00: 00 03-22 04:59 :00 No [id number] 30mg Take 3 tablets by mouth daily for 4 days. [facility] predniSONE 10 mg tablet 03-17 00:00: 00 03-22 04:59 :00 No [id number] 30mg Take 3 tablets by mouth daily for 4 days. [facility] predniSONE 10 mg tablet 03-17 00:00: 00 03-22 04:59 :00 No [id number] 30mg Take 3 tablets by mouth daily for 4 days. [facility] albuterol (VENTOLIN) inhaler 4 Puff 03-15 01:45: 00 03-15 00:44 :00 No [id number] 4{puff} 4 Puff, Inhalation , ONCE, 1 dose, Arpita 03/14/21 at 2044, Routine [facility] dexamethaso ne (DECADRON) injection 10 mg 03-15 01:45: 00 03-15 00:45 :00 No [id number] 10mg 10 mg, Intramuscu lar, ONCE, 1 dose, Arpita 03/14/21 at 204, Routine [facility] albuterol 2.5 mg /3 mL (0.083 %) nebulizer solution 03-15 00:00: 00 Yes [id number] 2.5mg Inhale 3 mL every 4 (four) hours as needed for Wheezing or Shortness of Breath. [facility] albuterol 2.5 mg /3 mL (0.083 %) nebulizer solution 03-15 00:00: 00 Yes [id number] 2.5mg Inhale 3 mL every 4 (four) hours as needed for Wheezing or Shortness of Breath. [facility] albuterol 2.5 mg /3 mL (0.083 %) nebulizer solution 03-15 00:00: 00 Yes [id number] 2.5mg Inhale 3 mL every 4 (four) hours as needed for Wheezing or Shortness of Breath. [facility] albuterol 2.5 mg /3 mL (0.083 %) nebulizer solution 03-15 00:00: 00 Yes [id number] 2.5mg Inhale 3 mL every 4 (four) hours as needed for Wheezing or Shortness of Breath. [facility] albuterol 2.5 mg /3 mL (0.083 %) nebulizer solution 03-15 00:00: 00 Yes [id number] 2.5mg Inhale 3 mL every 4 (four) hours as needed for Wheezing or Shortness of Breath. [facility] albuterol 2.5 mg /3 mL (0.083 %) nebulizer solution 03-15 00:00: 00 Yes [id number] 2.5mg Inhale 3 mL every 4 (four) hours as needed for Wheezing or Shortness of Breath. [facility] albuterol 2.5 mg /3 mL (0.083 %) nebulizer solution 03-15 00:00: 00 Yes [id number] 2.5mg Inhale 3 mL every 4 (four) hours as needed for Wheezing or Shortness of Breath. [facility] albuterol 2.5 mg /3 mL (0.083 %) nebulizer solution 03-15 00:00: 00 Yes [id number] 2.5mg Inhale 3 mL every 4 (four) hours as needed for Wheezing or Shortness of Breath. [facility] albuterol 2.5 mg /3 mL (0.083 %) nebulizer solution 03-15 00:00: 00 Yes [id number] 2.5mg Inhale 3 mL every 4 (four) hours as needed for Wheezing or Shortness of Breath. [facility] albuterol 2.5 mg /3 mL (0.083 %) nebulizer solution 03-15 00:00: 00 Yes [id number] 2.5mg Inhale 3 mL every 4 (four) hours as needed for Wheezing or Shortness of Breath. [facility] albuterol 2.5 mg /3 mL (0.083 %) nebulizer solution 03-15 00:00: 00 Yes [id number] 2.5mg Inhale 3 mL every 4 (four) hours as needed for Wheezing or Shortness of Breath. [facility] albuterol 2.5 mg /3 mL (0.083 %) nebulizer solution 03-15 00:00: 00 Yes [id number] 2.5mg Inhale 3 mL every 4 (four) hours as needed for Wheezing or Shortness of Breath. [facility] albuterol 2.5 mg /3 mL (0.083 %) nebulizer solution 03-15 00:00: 00 Yes [id number] 2.5mg Inhale 3 mL every 4 (four) hours as needed for Wheezing or Shortness of Breath. [facility] albuterol 2.5 mg /3 mL (0.083 %) nebulizer solution 03-15 00:00: 00 Yes [id number] 2.5mg Inhale 3 mL every 4 (four) hours as needed for Wheezing or Shortness of Breath. [facility] albuterol 2.5 mg /3 mL (0.083 %) nebulizer solution 03-15 00:00: 00 Yes [id number] 2.5mg Inhale 3 mL every 4 (four) hours as needed for Wheezing or Shortness of Breath. [facility].5 [facility] /3 mL (0.083 %) nebulizer solution 03-15 00:00: 00 Yes [id number] 2.5mg Inhale 3 mL every 4 (four) hours as needed for Wheezing or Shortness of Breath. [facility] albuterol 2.5 mg /3 mL (0.083 %) nebulizer solution 03-15 00:00: 00 Yes [id number] 2.5mg Inhale 3 mL every 4 (four) hours as needed for Wheezing or Shortness of Breath. [facility] 2.5 mg /3 mL (0.083 %) nebulizer solution 03-15 00:00: 00 Yes [id number] 2.5mg Inhale 3 mL every 4 (four) hours as needed for Wheezing or Shortness of Breath. [facility] levETIRAcet am (KEPPRA) in NACL (ISO-OS) 1,000 mg/100 mL RTU 02-19 20:15: 00 02-19 19:30 :00 No 1000mg 1,000 mg, IV Infusion, ONCE, 1 dose, Thu02/19/21 at 1515, Administer over 15 Minutes, 100 mL [facility] levetiracet am (KEPPRA ORAL) 02-19 19:45: 33 Yes Take by mouth. [facility] levetiracet am (KEPPRA ORAL) 02-19 19:45: 33 Yes Take by mouth. [facility]vet[facility] am (KEPPRA ORAL) 02-19 19:45: 33 Yes Take by mouth. [facility] it[facility] levetiracet am (KEPPRA ORAL) 02-19 19:45: 33 Yes Take by mouth. [facility] levetiracet am (KEPPRA ORAL) 02-19 19:45: 33 Yes Take by mouth. [facility] levetiracet am (KEPPRA ORAL) 02-19 19:45: 33 Yes Take by mouth. [facility] LISINOPRIL- HYDROCHLORO THIAZIDE ORAL 02-19 19:41: 15 02-19 00:00 :00 No Take by mouth. [facility] dicyclomine (BENTYL) injection 20 mg 02-19 19:15: 00 02-19 19:04 :00 No 20mg 20 mg, Intramuscu lar, ONCE, 1 dose, 02/19/21 at 1415, Routine [facility] proMETHazin e (PHENERGAN) 25 mg in NaCl 0.9% (NS) 50 mL piggyback 02-19 19:15: 00 02-19 19:03 :00 No 25mg 25 mg, IV Piggyback, ONCE, 1 dose, 02/19/21 at 1415, 50 mL [facility] morpHINE injection 4 mg 02-19 17:15: 00 02-19 17:05 :00 No 4mg 4 mg, Slow IV Push, ONCE, 1 dose, 02/19/21 at 1215, STAT [facility] NaCl 0.9% (NS) bolus infusion 1,000 mL 02-19 17:15: 00 02-19 19:04 :00 No 1000mL at 999 mL/hr, 1,000 mL, IV Infusion, ONCE, 1 dose, 02/19/21 at 1215, STAT [facility] ondansetron (ZOFRAN (PF)) injection 4 mg 02-19 17:00: 00 02-19 15:59 :00 No 4mg 4 mg, Slow IV Push, ONCE, 1 dose, 02/19/21 at 1200, MICHAEL [facility] iopamidol (ISOVUE 370-500 mL) injection 100 mL 02-19 16:35: 00 02-19 16:45 :00 No [id number] 100mL 100 mL, Intravenou s, ONCE, 1 dose, 02/19/21 at 1145, Routine [facility] levetiracet am (KEPPRA ORAL) 02-19 14:45: 33 Yes Take by mouth. [facility] levetiracet am (KEPPRA ORAL) 02-19 14:45: 33 Yes Take by mouth. [facility] levetiracet am (KEPPRA ORAL) 02-19 14:45: 33 Yes Take by mouth. [facility] levetiracet am (KEPPRA ORAL) 02-19 14:45: 33 Yes Take by mouth. [facility] levetiracet am (KEPPRA ORAL) 02-19 14:45: 33 Yes Take by mouth. [facility] proMETHazin e 25 mg tablet 02-19 00:00: 00 Yes [id number] 25mg Take 1 tablet by mouth every 6 (six) hours as needed for Nausea and Vomiting (N/V). [facility] dicyclomine 20 mg tablet 02-19 00:00: 00 Yes [id number] 20mg Take 1 tablet by mouth 4 (four) times daily as needed for Abdominal pain. [facility] proMETHazin e 25 mg tablet 02-19 00:00: 00 Yes [id number] 25mg Take 1 tablet by mouth every 6 (six) hours as needed for Nausea and Vomiting (N/V). [facility] dicyclomine 20 mg tablet 02-19 00:00: 00 Yes [id number] 20mg Take 1 tablet by mouth 4 (four) times daily as needed for Abdominal pain. [facility] proMETHazin e 25 mg tablet 02-19 00:00: 00 Yes [id number] 25mg Take 1 tablet by mouth every 6 (six) hours as needed for Nausea and Vomiting (N/V). [facility] dicyclomine 20 mg tablet 02-19 00:00: 00 Yes [id number] 20mg Take 1 tablet by mouth 4 (four) times daily as needed for Abdominal pain. [facility] proMETHazin e 25 mg tablet 0 02-19 00:00: 00 Yes [id number] 25mg Take 1 tablet by mouth every 6 (six) hours as needed for Nausea and Vomiting (N/V). [facility] dicyclomine 20 mg tablet 0 02-19 00:00: 00 Yes [id number] 20mg Take 1 tablet by mouth 4 (four) times daily as needed for Abdominal pain. [facility] proMETHazin e 25 mg tablet 0 02-19 00:00: 00 Yes [id number] 25mg Take 1 tablet by mouth every 6 (six) hours as needed for Nausea and Vomiting (N/V). [facility] dicyclomine 20 mg tablet 02-19 00:00: 00 Yes [id number] 20mg Take 1 tablet by mouth 4 (four) times daily as needed for Abdominal pain. [facility] proMETHazin e 25 mg tablet 02-19 00:00: 00 Yes [id number] 25mg Take 1 tablet by mouth every 6 (six) hours as needed for Nausea and Vomiting (N/V). [facility] dicyclomine 20 mg tablet 02-19 00:00: 00 Yes [id number] 20mg Take 1 tablet by mouth 4 (four) times daily as needed for Abdominal pain. [facility] proMETHazin e 25 mg tablet 0 02-19 00:00: 00 Yes [id number] 25mg Take 1 tablet by mouth every 6 (six) hours as needed for Nausea and Vomiting (N/V). [facility] dicyclomine 20 mg tablet 2020-0 02-19 00:00: 00 Yes [id number] 20mg Take 1 tablet by mouth 4 (four) times daily as needed for Abdominal pain. [facility] proMETHazin e 25 mg tablet 2020-0 02-19 00:00: 00 Yes [id number] 25mg Take 1 tablet by mouth every 6 (six) hours as needed for Nausea and Vomiting (N/V). [facility] dicyclomine 20 mg tablet 0 02-19 00:00: 00 Yes [id number] 20mg Take 1 tablet by mouth 4 (four) times daily as needed for Abdominal pain. [facility] proMETHazin e 25 mg tablet 0 02-19 00:00: 00 Yes [id number] 25mg Take 1 tablet by mouth every 6 (six) hours as needed for Nausea and Vomiting (N/V). [facility] dicyclomine 20 mg tablet 0 02-19 00:00: 00 Yes [id number] 20mg Take 1 tablet by mouth 4 (four) times daily as needed for Abdominal pain. [facility] proMETHazin e 25 mg tablet 02-19 00:00: 00 Yes [id number] 25mg Take 1 tablet by mouth every 6 (six) hours as needed for Nausea and Vomiting (N/V). [facility] dicyclomine 20 mg tablet 02-19 00:00: 00 Yes [id number] 20mg Take 1 tablet by mouth 4 (four) times daily as needed for Abdominal pain. [facility] proMETHazin e 25 mg tablet 02-19 00:00: 00 Yes [id number] 25mg Take 1 tablet by mouth every 6 (six) hours as needed for Nausea and Vomiting (N/V). [facility] dicyclomine 20 mg tablet 2020-0 02-19 00:00: 00 Yes [id number] 20mg Take 1 tablet by mouth 4 (four) times daily as needed for Abdominal pain. [facility] proMETHazin e 25 mg tablet 0 02-19 00:00: 00 Yes [id number] 25mg Take 1 tablet by mouth every 6 (six) hours as needed for Nausea and Vomiting (N/V). [facility] dicyclomine 20 mg tablet 0 02-19 00:00: 00 Yes [id number] 20mg Take 1 tablet by mouth 4 (four) times daily as needed for Abdominal pain. [facility] proMETHazin e 25 mg tablet 0 02-19 00:00: 00 Yes [id number] 25mg Take 1 tablet by mouth every 6 (six) hours as needed for Nausea and Vomiting (N/V). [facility] dicyclomine 20 mg tablet 02-19 00:00: 00 Yes [id number] 20mg Take 1 tablet by mouth 4 (four) times daily as needed for Abdominal pain. [facility] proMETHazin e 25 mg tablet 02-19 00:00: 00 Yes [id number] 25mg Take 1 tablet by mouth every 6 (six) hours as needed for Nausea and Vomiting (N/V). [facility] dicyclomine 20 mg tablet 02-19 00:00: 00 Yes [id number] 20mg Take 1 tablet by mouth 4 (four) times daily as needed for Abdominal pain. [facility] proMETHazin e 25 mg tablet 02-19 00:00: 00 Yes [id number] 25mg Take 1 tablet by mouth every 6 (six) hours as needed for Nausea and Vomiting (N/V). [facility] dicyclomine 20 mg tablet 02-19 00:00: 00 Yes [id number] 20mg Take 1 tablet by mouth 4 (four) times daily as needed for Abdominal pain. [facility] proMETHazin e 25 mg tablet 02-19 00:00: 00 Yes [id number] 25mg Take 1 tablet by mouth every 6 (six) hours as needed for Nausea and Vomiting (N/V). [facility] dicyclomine 20 mg tablet 02-19 00:00: 00 Yes [id number] 20mg Take 1 tablet by mouth 4 (four) times daily as needed for Abdominal pain. [facility] proMETHazin e 25 mg tablet 02-19 00:00: 00 Yes [id number] 25mg Take 1 tablet by mouth every 6 (six) hours as needed for Nausea and Vomiting (N/V). [facility] dicyclomine 20 mg tablet 02-19 00:00: 00 Yes [id number] 20mg Take 1 tablet by mouth 4 (four) times daily as needed for Abdominal pain. [facility] proMETHazin e 25 mg tablet 02-19 00:00: 00 Yes [id number] 25mg Take 1 tablet by mouth every 6 (six) hours as needed for Nausea and Vomiting (N/V). [facility] dicyclomine 20 mg tablet 02-19 00:00: 00 Yes [id number] 20mg Take 1 tablet by mouth 4 (four) times daily as needed for Abdominal pain. [facility] proMETHazin e 25 mg tablet 02-19 00:00: 00 Yes [id number] 25mg Take 1 tablet by mouth every 6 (six) hours as needed for Nausea and Vomiting (N/V). [facility] dicyclomine 20 mg tablet 02-19 00:00: 00 Yes [id number] 20mg Take 1 tablet by mouth 4 (four) times daily as needed for Abdominal pain. [facility] ZONISAMIDE 100 mg capsule 11-15 00:00: 00 Yes TAKE 1 CAPSULE BY MOUTH TWICE A DAY [facility] ZONISAMIDE 100 mg capsule 11-15 00:00: 00 02-19 00:00 :00 No TAKE 1 CAPSULE BY MOUTH TWICE A DAY [facility] ondansetron (ZOFRAN) 4 mg tablet 02-09 20:05: 01 Yes 4mg Take 4 mg by mouth every 8 (eight) hours as needed. [facility] pantoprazol e (PROTONIX) 40 mg EC tablet 02-09 20:05: 01 Yes 40mg Take 40 mg by mouth daily. [facility] ondansetron (ZOFRAN) 4 mg tablet 02-09 20:05: 01 Yes 4mg Take 4 mg by mouth every 8 (eight) hours as needed. [facility] pantoprazol e (PROTONIX) 40 mg EC tablet 02-09 20:05: 01 Yes 40mg Take 40 mg by mouth daily. [facility] LISINOPRIL- HYDROCHLORO THIAZIDE ORAL 02-09 20:05: 01 Yes Take by mouth. [facility] ondansetron (ZOFRAN) 4 mg tablet 02-09 20:05: 01 Yes 4mg Take 4 mg by mouth every 8 (eight) hours as needed. [facility] pantoprazol e (PROTONIX) 40 mg EC tablet 02-09 20:05: 01 Yes 40mg Take 40 mg by mouth daily. [facility] ondansetron (ZOFRAN) 4 mg tablet 02-09 20:05: 01 Yes 4mg Take 4 mg by mouth every 8 (eight) hours as needed. [facility] pantoprazol e (PROTONIX) 40 mg EC tablet 02-09 20:05: 01 Yes 40mg Take 40 mg by mouth daily. [facility] ondansetron (ZOFRAN) 4 mg tablet 02-09 20:05: 01 Yes 4mg Take 4 mg by mouth every 8 (eight) hours as needed. [facility] pantoprazol e (PROTONIX) 40 mg EC tablet 02-09 20:05: 01 Yes 40mg Take 40 mg by mouth daily. [facility] ondansetron (ZOFRAN) 4 mg tablet 02-09 20:05: 01 Yes 4mg Take 4 mg by mouth every 8 (eight) hours as needed. [facility] pantoprazol e (PROTONIX) 40 mg EC tablet 02-09 20:05: 01 Yes 40mg Take 40 mg by mouth daily. [facility] ondansetron (ZOFRAN) 4 mg tablet 02-09 20:05: 01 Yes 4mg Take 4 mg by mouth every 8 (eight) hours as needed. [facility] pantoprazol e (PROTONIX) 40 mg EC tablet 02-09 20:05: 01 Yes 40mg Take 40 mg by mouth daily. [facility] lisinopril- hydrochloro thiazide 20-12.5 mg per tablet 02-09 20:03: 30 Yes 1{tbl} Take 1 tablet by mouth daily. [facility] lisinopril- hydrochloro thiazide 20-12.5 mg per tablet 02-09 20:03: 30 Yes 1{tbl} Take 1 tablet by mouth daily. [facility] lisinopril- hydrochloro thiazide 20-12.5 mg per tablet 02-09 20:03: 30 Yes 1{tbl} Take 1 tablet by mouth daily. [facility] lisinopril- hydrochloro thiazide 20-12.5 mg per tablet 02-09 20:03: 30 Yes 1{tbl} Take 1 tablet by mouth daily. [facility] lisinopril- hydrochloro thiazide 20-12.5 mg per tablet 02-09 20:03: 30 Yes 1{tbl} Take 1 tablet by mouth daily. [facility] lisinopril- hydrochloro thiazide 20-12.5 mg per tablet 02-09 20:03: 30 Yes 1{tbl} Take 1 tablet by mouth daily. [facility] lisinopril- hydrochloro thiazide 20-12.5 mg per tablet 02-09 20:03: 30 Yes 1{tbl} Take 1 tablet by mouth daily. [facility] omega-3 fatty acids-vitam in E (FISH OIL) 1,000 mg capsule 02-09 19:59: 52 Yes 1g Take 1 g by mouth daily. [facility] omega-3 fatty acids-vitam in E (FISH OIL) 1,000 mg capsule 02-09 19:59: 52 Yes 1g Take 1 g by mouth daily. [facility] omega-3 fatty acids-vitam in E (FISH OIL) 1,000 mg capsule 02-09 19:59: 52 Yes 1g Take 1 g by mouth daily. [facility] omega-3 fatty acids-vitam in E (FISH OIL) 1,000 mg capsule 02-09 19:59: 52 Yes 1g Take 1 g by mouth daily. [facility] omega-3 fatty acids-vitam in E (FISH OIL) 1,000 mg capsule 02-09 19:59: 52 Yes 1g Take 1 g by mouth daily. [facility] omega-3 fatty acids-vitam in E (FISH OIL) 1,000 mg capsule 02-09 19:59: 52 Yes 1g Take 1 g by mouth daily. [facility] omega-3 fatty acids-vitam in E (FISH OIL) 1,000 mg capsule 02-09 19:59: 52 Yes 1g Take 1 g by mouth daily. [facility]IV[facility]AL 02-09 19:58: 14 Yes 1{tbl} Take 1 Tab by mouth daily. [facility] loratadine (CLARITIN LIQUI-GEL) 10 mg capsule 02-09 19:58: 14 Yes Take by mouth daily. [facility] MULTIVIT[facility] N ORAL 02-09 19:58: 14 Yes 1{tbl} Take 1 Tab by mouth daily. [facility] loratadine (CLARITIN LIQUI-GEL) 10 mg capsule 02-09 19:58: 14 Yes Take by mouth daily. [facility] MULTIVITAMI N ORAL 02-09 19:58: 14 Yes 1{tbl} Take 1 Tab by mouth daily. [facility] loratadine (CLARITIN LIQUI-GEL) 10 mg capsule 02-09 19:58: 14 Yes Take by mouth daily. [facility] MULTIVITAMI N ORAL 02-09 19:58: 14 Yes 1{tbl} Take 1 Tab by mouth daily. [facility] loratadine (CLARITIN LIQUI-GEL) 10 mg capsule 02-09 19:58: 14 Yes Take by mouth daily. [facility]AL 02-09 19:58: 14 Yes 1{tbl} Take 1 Tab by mouth daily. [facility] loratadine (CLARITIN LIQUI-GEL) 10 mg capsule 02-09 19:58: 14 Yes Take by mouth daily. [facility] MULTIVITAMI N ORAL 02-09 19:58: 14 Yes 1{tbl} Take 1 Tab by mouth daily. [facility] loratadine (CLARITIN LIQUI-GEL) 10 mg capsule 02-09 19:58: 14 Yes Take by mouth daily. [facility] MULTIVITAMI N ORAL 02-09 19:58: 14 Yes 1{tbl} Take 1 Tab by mouth daily. [facility] loratadine (CLARITIN LIQUI-GEL) 10 mg capsule 02-09 19:58: 14 Yes Take by mouth daily. [facility] ondansetron (ZOFRAN) 4 mg tablet 02-09 15:05: 01 Yes 4mg Take 4 mg by mouth every 8 (eight) hours as needed. [facility] pantoprazol e (PROTONIX) 40 mg EC tablet 02-09 15:05: 01 Yes 40mg Take 40 mg by mouth daily. [facility] ondansetron (ZOFRAN) 4 mg tablet 02-09 15:05: 01 Yes 4mg Take 4 mg by mouth every 8 (eight) hours as needed. [facility] pantoprazol e (PROTONIX) 40 mg EC tablet 02-09 15:05: 01 Yes 40mg Take 40 mg by mouth daily. [facility] [facility] ondansetron (ZOFRAN) 4 mg tablet 02-09 15:05: 01 Yes 4mg Take 4 mg by mouth every 8 (eight) hours as needed. [facility] pantoprazol e (PROTONIX) 40 mg EC tablet 02-09 15:05: 01 Yes 40mg Take 40 mg by mouth daily. [facility] ondansetron (ZOFRAN) 4 mg tablet 02-09 15:05: 01 Yes 4mg Take 4 mg by mouth every 8 (eight) hours as needed. [facility] pantoprazol e (PROTONIX) 40 mg EC tablet 02-09 15:05: 01 Yes 40mg Take 40 mg by mouth daily. [facility] ondansetron (ZOFRAN) 4 mg tablet 02-09 15:05: 01 Yes 4mg Take 4 mg by mouth every 8 (eight) hours as needed. [facility] pantoprazol e (PROTONIX) 40 mg EC tablet 02-09 15:05: 01 Yes 40mg Take 40 mg by mouth daily. [facility] lisinopril- hydrochloro thiazide 20-12.5 mg per tablet 02-09 15:03: 30 Yes 1{tbl} Take 1 tablet by mouth daily. [facility] lisinopril- hydrochloro thiazide 20-12.5 mg per tablet 02-09 15:03: 30 Yes 1{tbl} Take 1 tablet by mouth daily. [facility] lisinopril- hydrochloro thiazide 20-12.5 mg per tablet 02-09 15:03: 30 Yes 1{tbl} Take 1 tablet by mouth daily. [facility] lisinopril- hydrochloro thiazide 20-12.5 mg per tablet 02-09 15:03: 30 Yes 1{tbl} Take 1 tablet by mouth daily. [facility] lisinopril- hydrochloro thiazide 20-12.5 mg per tablet 02-09 15:03: 30 Yes 1{tbl} Take 1 tablet by mouth daily. [facility] omega-3 fatty acids-vitam in E (FISH OIL) 1,000 mg capsule 02-09 14:59: 52 Yes 1g Take 1 g by mouth daily. [facility] omega-3 fatty acids-vitam in E (FISH OIL) 1,000 mg capsule 02-09 14:59: 52 Yes 1g Take 1 g by mouth daily. [facility] omega-3 fatty acids-vitam in E (FISH OIL) 1,000 mg capsule 02-09 14:59: 52 Yes 1g Take 1 g by mouth daily. [facility] omega-3 fatty acids-vitam in E (FISH OIL) 1,000 mg capsule 02-09 14:59: 52 Yes 1g Take 1 g by mouth daily. [facility] omega-3 fatty acids-vitam in E (FISH OIL) 1,000 mg capsule 02-09 14:59: 52 Yes 1g Take 1 g by mouth daily. [facility] MULTIVITAMI N ORAL 02-09 14:58: 14 Yes 1{tbl} Take 1 Tab by mouth daily. [facility] loratadine (CLARITIN LIQUI-GEL) 10 mg capsule 02-09 14:58: 14 Yes Take by mouth daily. [facility] MULTIVITAMI N ORAL 02-09 14:58: 14 Yes 1{tbl} Take 1 Tab by mouth daily. [facility] loratadine (CLARITIN LIQUI-GEL) 10 mg capsule 02-09 14:58: 14 Yes Take by mouth daily. [facility] MULTIVITAMI N ORAL 02-09 14:58: 14 Yes 1{tbl} Take 1 Tab by mouth daily. [facility] loratadine (CLARITIN LIQUI-GEL) 10 mg capsule 02-09 14:58: 14 Yes Take by mouth daily. [facility] MULTIVITAMI N ORAL 02-09 14:58: 14 Yes 1{tbl} Take 1 Tab by mouth daily. [facility] loratadine (CLARITIN LIQUI-GEL) 10 mg capsule 02-09 14:58: 14 Yes Take by mouth daily. [facility] MULTIVITAMI N ORAL 02-09 14:58: 14 Yes 1{tbl} Take 1 Tab by mouth daily. [facility] loratadine (CLARITIN LIQUI-GEL) 10 mg capsule 02-09 14:58: 14 Yes Take by mouth daily. [facility] proMETHazin e (PHENERGAN) 25 mg tablet 11-20 00:00: 00 Yes 25mg Take 1 tablet by mouth every 6 (six) hours as needed for Nausea and Vomiting (N/V). [facility] proMETHazin e (PHENERGAN) 25 mg tablet 11-20 00:00: 00 02-19 00:00 :00 No 25mg Take 1 tablet by mouth every 6 (six) hours as needed for Nausea and Vomiting (N/V). [facility] carvedilol (COREG) 6.25 mg tablet 09-19 00:00: 00 Yes 6.25mg Take 1 Tab by mouth 2 (two) times daily with meals. [facility] amLODIPine (NORVASC) 10 mg tablet 09-19 00:00: 00 Yes 10mg Take 1 Tab by mouth daily. [facility] lisinopril (PRINIVIL,Z ESTRIL) 40 mg tablet 09-19 00:00: 00 Yes 40mg Take 1 Tab by mouth daily. [facility] carvedilol (COREG) 6.25 mg tablet 09-19 00:00: 00 Yes 6.25mg Take 1 Tab by mouth 2 (two) times daily with meals. [facility] amLODIPine (NORVASC) 10 mg tablet 09-19 00:00: 00 Yes 10mg Take 1 Tab by mouth daily. [facility] lisinopril (PRINIVIL,Z ESTRIL) 40 mg tablet 09-19 00:00: 00 Yes 40mg Take 1 Tab by mouth daily. [facility] carvedilol (COREG) 6.25 mg tablet 09-19 00:00: 00 Yes 6.25mg Take 1 Tab by mouth 2 (two) times daily with meals. [facility] amLODIPine (NORVASC) 10 mg tablet 09-19 00:00: 00 Yes 10mg Take 1 Tab by mouth daily. [facility] lisinopril (PRINIVIL,Z ESTRIL) 40 mg tablet 09-19 00:00: 00 Yes 40mg Take 1 Tab by mouth daily. [facility] carvedilol (COREG) 6.25 mg tablet 09-19 00:00: 00 Yes 6.25mg Take 1 Tab by mouth 2 (two) times daily with meals. [facility] amLODIPine (NORVASC) 10 mg tablet 09-19 00:00: 00 Yes 10mg Take 1 Tab by mouth daily. [facility] lisinopril (PRINIVIL,Z ESTRIL) 40 mg tablet 09-19 00:00: 00 Yes 40mg Take 1 Tab by mouth daily. [facility] carvedilol (COREG) 6.25 mg tablet 09-19 00:00: 00 Yes 6.25mg Take 1 Tab by mouth 2 (two) times daily with meals. [facility] amLODIPine (NORVASC) 10 mg tablet 09-19 00:00: 00 Yes 10mg Take 1 Tab by mouth daily. [facility] lisinopril (PRINIVIL,Z ESTRIL) 40 mg tablet 09-19 00:00: 00 Yes 40mg Take 1 Tab by mouth daily. [facility] carvedilol (COREG) 6.25 mg tablet 09-19 00:00: 00 Yes 6.25mg Take 1 Tab by mouth 2 (two) times daily with meals. [facility] amLODIPine (NORVASC) 10 mg tablet 09-19 00:00: 00 Yes 10mg Take 1 Tab by mouth daily. [facility] lisinopril (PRINIVIL,Z ESTRIL) 40 mg tablet 09-19 00:00: 00 Yes 40mg Take 1 Tab by mouth daily. [facility] carvedilol (COREG) 6.25 mg tablet 09-19 00:00: 00 Yes 6.25mg Take 1 Tab by mouth 2 (two) times daily with meals. [facility] amLODIPine (NORVASC) 10 mg tablet 09-19 00:00: 00 Yes 10mg Take 1 Tab by mouth daily. [facility] lisinopril (PRINIVIL,Z ESTRIL) 40 mg tablet 09-19 00:00: 00 Yes 40mg Take 1 Tab by mouth daily. [facility] carvedilol (COREG) 6.25 mg tablet 09-19 00:00: 00 Yes 6.25mg Take 1 Tab by mouth 2 (two) times daily with meals. [facility] amLODIPine (NORVASC) 10 mg tablet 09-19 00:00: 00 Yes 10mg Take 1 Tab by mouth daily. [facility] lisinopril (PRINIVIL,Z ESTRIL) 40 mg tablet 09-19 00:00: 00 Yes 40mg Take 1 Tab by mouth daily. [facility] carvedilol (COREG) 6.25 mg tablet 09-19 00:00: 00 Yes 6.25mg Take 1 Tab by mouth 2 (two) times daily with meals. [facility] amLODIPine (NORVASC) 10 mg tablet 09-19 00:00: 00 Yes 10mg Take 1 Tab by mouth daily. [facility] lisinopril (PRINIVIL,Z ESTRIL) 40 mg tablet 09-19 00:00: 00 Yes 40mg Take 1 Tab by mouth daily. [facility] carvedilol (COREG) 6.25 mg tablet 09-19 00:00: 00 Yes 6.25mg Take 1 Tab by mouth 2 (two) times daily with meals. [facility] amLODIPine (NORVASC) 10 mg tablet 09-19 00:00: 00 Yes 10mg Take 1 Tab by mouth daily. [facility] lisinopril (PRINIVIL,Z ESTRIL) 40 mg tablet 09-19 00:00: 00 Yes 40mg Take 1 Tab by mouth daily. [facility] carvedilol (COREG) 6.25 mg tablet 09-19 00:00: 00 Yes 6.25mg Take 1 Tab by mouth 2 (two) times daily with meals. [facility] amLODIPine (NORVASC) 10 mg tablet 09-19 00:00: 00 Yes 10mg Take 1 Tab by mouth daily. [facility] lisinopril (PRINIVIL,Z ESTRIL) 40 mg tablet 09-19 00:00: 00 Yes 40mg Take 1 Tab by mouth daily. [facility] carvedilol (COREG) 6.25 mg tablet 09-19 00:00: 00 Yes 6.25mg Take 1 Tab by mouth 2 (two) times daily with meals. [facility] amLODIPine (NORVASC) 10 mg tablet 09-19 00:00: 00 Yes 10mg Take 1 Tab by mouth daily. [facility] lisinopril (PRINIVIL,Z ESTRIL) 40 mg tablet 09-19 00:00: 00 Yes 40mg Take 1 Tab by mouth daily. [facility] carvedilol (COREG) 6.25 mg tablet 09-19 00:00: 00 Yes 6.25mg Take 1 Tab by mouth 2 (two) times daily with meals. [facility] amLODIPine (NORVASC) 10 mg tablet 09-19 00:00: 00 Yes 10mg Take 1 Tab by mouth daily. [facility] lisinopril (PRINIVIL,Z ESTRIL) 40 mg tablet 09-19 00:00: 00 Yes 40mg Take 1 Tab by mouth daily. [facility] carvedilol (COREG) 6.25 mg tablet 09-19 00:00: 00 Yes 6.25mg Take 1 Tab by mouth 2 (two) times daily with meals. [facility] amLODIPine (NORVASC) 10 mg tablet 09-19 00:00: 00 Yes 10mg Take 1 Tab by mouth daily. [facility] lisinopril (PRINIVIL,Z ESTRIL) 40 mg tablet 09-19 00:00: 00 Yes 40mg Take 1 Tab by mouth daily. [facility] carvedilol (COREG) 6.25 mg tablet 09-19 00:00: 00 Yes 6.25mg Take 1 Tab by mouth 2 (two) times daily with meals. [facility] amLODIPine (NORVASC) 10 mg tablet 09-19 00:00: 00 Yes 10mg Take 1 Tab by mouth daily. [facility] lisinopril (PRINIVIL,Z ESTRIL) 40 mg tablet 09-19 00:00: 00 Yes 40mg Take 1 Tab by mouth daily. [facility] carvedilol (COREG) 6.25 mg tablet 09-19 00:00: 00 Yes 6.25mg Take 1 Tab by mouth 2 (two) times daily with meals. [facility] amLODIPine (NORVASC) 10 mg tablet 09-19 00:00: 00 Yes 10mg Take 1 Tab by mouth daily. [facility] lisinopril (PRINIVIL,Z ESTRIL) 40 mg tablet 09-19 00:00: 00 Yes 40mg Take 1 Tab by mouth daily. [facility] carvedilol (COREG) 6.25 mg tablet 09-19 00:00: 00 Yes 6.25mg Take 1 Tab by mouth 2 (two) times daily with meals. [facility] amLODIPine (NORVASC) 10 mg tablet 09-19 00:00: 00 Yes 10mg Take 1 Tab by mouth daily. [facility] lisinopril (PRINIVIL,Z ESTRIL) 40 mg tablet 09-19 00:00: 00 Yes 40mg Take 1 Tab by mouth daily. [facility] carvedilol (COREG) 6.25 mg tablet 09-19 00:00: 00 Yes 6.25mg Take 1 Tab by mouth 2 (two) times daily with meals. [facility] amLODIPine (NORVASC) 10 mg tablet 09-19 00:00: 00 Yes 10mg Take 1 Tab by mouth daily. [facility] lisinopril (PRINIVIL,Z ESTRIL) 40 mg tablet 09-19 00:00: 00 Yes 40mg Take 1 Tab by mouth daily. [facility] carvedilol (COREG) 6.25 mg tablet 09-19 00:00: 00 Yes 6.25mg Take 1 Tab by mouth 2 (two) times daily with meals. [facility] amLODIPine (NORVASC) 10 mg tablet 09-19 00:00: 00 Yes 10mg Take 1 Tab by mouth daily. [facility] lisinopril (PRINIVIL,Z ESTRIL) 40 mg tablet 09-19 00:00: 00 Yes 40mg Take 1 Tab by mouth daily. [facility] carvedilol (COREG) 6.25 mg tablet 09-19 00:00: 00 Yes 6.25mg Take 1 Tab by mouth 2 (two) times daily with meals. [facility] amLODIPine (NORVASC) 10 mg tablet 09-19 00:00: 00 Yes 10mg Take 1 Tab by mouth daily. [facility] lisinopril (PRINIVIL,Z ESTRIL) 40 mg tablet 09-19 00:00: 00 Yes 40mg Take 1 Tab by mouth daily. [facility] Vital Signs Vital Name Observation Time Observation Value Comments S ource WEIGHT 2023-06-16 05:26:00 86.047 kg HEIGHT 2023-06-13 [...] WEIGHT 2023-03-29 20:00:00 92.08 kg Systolic blood pressure 2022-12-11 20:00:00 142 mm[Hg] [facility] Diastolic blood pressure 2022-12-11 20:00:00 90 mm[Hg] [facility] Respiratory rate 2022-12-11 20:00:00 24 /min [facility] Heart rate 2022-12-11 18:00:00 101 /min [facility] Oxygen saturation in Arterial blood by Pulse oximetry 2022-12-11 18:00:00 93 /min [facility] BMI 2022-12-11 13:55:00 35.43 kg/m2 [facility] Body temperature 2022-12-11 13:55:00 37.22 Radha [facility] Body weight 2022-12-11 13:55:00 90.719 kg [facility] Systolic blood pressure 2022-11-18 05:34:00 152 mm[Hg] [facility] Diastolic blood pressure 2022-11-18 05:34:00 98 mm[Hg] [facility] Heart rate 2022-11-18 05:34:00 88 /min Un[facility] Respiratory rate 2022-11-18 05:34:00 18 /min [facility] Oxygen saturation in Arterial blood by Pulse oximetry 2022-11-18 05:34:00 97 /min [facility] Body temperature 2022-11-17 22:28:00 37.06 Radha [facility] Body height 2022-11-17 22:28:00 160 cm [facility] Body weight 2022-11-17 22:28:00 99.791 kg [facility] BMI 2022-11-17 22:28:00 38.97 kg/m2 [facility] Heart rate 2022-08-02 02:02:00 108 /min [facility] Respiratory rate 2022-08-02 02:02:00 28 /min [facility] Oxygen saturation in Arterial blood by Pulse oximetry 2022-08-02 02:02:00 97 /min [facility] Body temperature 2022-08-02 01:00:00 36.44 Radha [facility] Systolic blood pressure 2022-08-01 23:29:00 145 mm[Hg] [facility] Diastolic blood pressure 2022-08-01 23:29:00 103 mm[Hg] [facility] Body weight 2022-08-01 09:16:00 97.977 kg [facility] BMI 2022-08-01 09:16:00 38.26 kg/m2 [facility] Body height 2022-07-31 21:54:00 160 cm [facility] Systolic blood pressure 2022-05-08 16:40:00 146 mm[Hg] [facility] Diastolic blood pressure 2022-05-08 16:40:00 96 mm[Hg] [facility] Heart rate 2022-05-08 16:40:00 112 /min [facility] Body temperature 2022-05-08 16:40:00 36.78 Radha [facility] Respiratory rate 2022-05-08 16:40:00 18 /min [facility] Oxygen saturation in Arterial blood by Pulse oximetry 2022-05-08 16:40:00 94 /min [facility] Body height 2022-05-05 23:44:00 160 cm [facility] Body weight 2022-05-05 23:37:00 81.647 kg [facility] BMI 2022-05-05 23:37:00 31.89 kg/m2 [facility] Systolic blood pressure 2022-04-15 18:52:00 104 mm[Hg] [facility] Diastolic blood pressure 2022-04-15 18:52:00 82 mm[Hg] [facility] Heart rate 2022-04-15 18:52:00 114 /min [facility] Oxygen saturation in Arterial blood by Pulse oximetry 2022-04-15 18:52:00 98 /min [facility] Body temperature 2022-04-15 16:14:00 36.28 Radha [facility] Respiratory rate 2022-04-15 16:14:00 17 /min [facility] Body height 2022-04-13 21:08:00 160 cm [facility] Body weight 2022-04-13 21:08:00 91.173 kg [facility] BMI 2022-04-13 21:08:00 35.61 kg/m2 [facility] Systolic blood pressure 2021-11-23 21:30:00 132 mm[Hg] [facility] Diastolic blood pressure 2021-11-23 21:30:00 76 mm[Hg] [facility] Heart rate 2021-11-23 21:30:00 95 /min [facility] Respiratory rate 2021-11-23 21:30:00 13 /min [facility] Oxygen saturation in Arterial blood by Pulse oximetry 2021-11-23 21:30:00 97 /min [facility] Body temperature 2021-11-23 20:15:00 37.56 Radha [facility] Systolic blood pressure 2021-03-17 03:00:00 117 mm[Hg] [facility] Diastolic blood pressure 2021-03-17 03:00:00 76 mm[Hg] [facility] Heart rate 2021-03-17 03:00:00 104 /min [facility] Respiratory rate 2021-03-17 03:00:00 28 /min [facility] Oxygen saturation in Arterial blood by Pulse oximetry 2021-03-17 03:00:00 96 /min [facility] Body temperature 2021-03-17 00:39:00 37.11 Radha [facility] Body height 2021-03-17 00:39:00 160 cm [facility] Body weight 2021-03-17 00:39:00 58.968 kg [facility] BMI 2021-03-17 00:39:00 23.03 kg/m2 [facility] Systolic blood pressure 2021-03-15 00:14:00 149 mm[Hg] [facility] Diastolic blood pressure 2021-03-15 00:14:00 78 mm[Hg] [facility] Heart rate 2021-03-15 00:14:00 100 /min [facility] Body temperature 2021-03-15 00:14:00 37.33 Radha [facility] Respiratory rate 2021-03-15 00:14:00 24 /min [facility] Body height 2021-03-15 00:14:00 160 cm [facility] Body weight 2021-03-15 00:14:00 58.968 kg [facility] BMI 2021-03-15 00:14:00 23.03 kg/m2 [facility] Oxygen saturation in Arterial blood by Pulse oximetry 2021-03-15 00:14:00 98 /min [facility] Systolic blood pressure 2021-02-19 18:00:00 131 mm[Hg] [facility] Diastolic blood pressure 2021-02-19 18:00:00 80 mm[Hg] [facility] Heart rate 2021-02-19 18:00:00 83 /min [facility] 2021-02-19 18:00:00 18 /min [facility] Oxygen saturation in Arterial blood by Pulse oximetry 2021-02-19 18:00:00 100 /min [facility] Body temperature 2021-02-19 15:47:00 37 Radha [facility] Body height 2021-02-19 15:47:00 160 cm [facility] Body weight 2021-02-19 15:47:00 58.968 kg [facility] BMI 2021-02-19 15:47:00 23.03 kg/m2 [facility] Heart rate 2023-06-16 17:00:00 108 /min [facility] Systolic blood pressure 2023-06-16 15:31:00 101 mm[Hg] [facility] Diastolic blood pressure 2023-06-16 15:31:00 81 mm[Hg] [facility] Body temperature 2023-06-16 15:31:00 36.61 Radha [facility] Respiratory rate 2023-06-16 15:31:00 18 /min [facility] Oxygen saturation in Arterial blood by Pulse oximetry 2023-06-16 15:31:00 94 /min [facility] Body weight 2023-06-16 05:26:00 86.047 kg [facility] BMI 2023-06-16 05:26:00 33.60 kg/m2 [facility] Body height 2023-06-13 04:00:00 160 cm [facility] Systolic blood pressure 2023-06-04 13:02:00 93 mm[Hg] [facility] Diastolic blood pressure 2023-06-04 13:02:00 57 mm[Hg] [facility] Heart rate 2023-06-04 13:02:00 101 /min [facility] Respiratory rate 2023-06-04 13:02:00 22 /min [facility] Oxygen saturation in Arterial blood by Pulse oximetry 2023-06-04 13:02:00 95 /min room air [facility] Body temperature 2023-06-04 11:46:00 35.28 Radha [facility] Systolic blood pressure 2023-05-28 16:00:00 154 mm[Hg] [facility] Diastolic blood pressure 2023-05-28 16:00:00 82 mm[Hg] [facility] Heart rate 2023-05-28 16:00:00 89 /min [facility] Body temperature 2023-05-28 16:00:00 36.67 Radha [facility] Respiratory rate 2023-05-28 16:00:00 16 /min [facility] Oxygen saturation in Arterial blood by Pulse oximetry 2023-05-28 16:00:00 97 /min [facility] Body height 2023-05-28 07:00:00 157.5 cm [facility] Body weight 2023-05-28 07:00:00 87.544 kg [facility] BMI 2023-05-28 07:00:00 35.30 kg/m2 [facility] Body height 2023-05-26 09:12:00 157.5 cm [facility] Body weight 2023-05-26 09:12:00 87.091 kg [facility] BMI 2023-05-26 09:12:00 35.12 kg/m2 [facility] Respiratory rate 2023-04-02 16:35:00 18 /min [facility] Oxygen saturation in Arterial blood by Pulse oximetry 2023-04-02 16:35:00 98 /min [facility] Systolic blood pressure 2023-04-02 12:00:00 147 mm[Hg] [facility] Diastolic blood pressure 2023-04-02 12:00:00 97 mm[Hg] [facility] Heart rate 2023-04-02 12:00:00 106 /min [facility] Body temperature 2023-04-02 12:00:00 36.28 Radha [facility] Body height 2023-03-30 02:14:00 157.5 cm [facility] Body weight 2023-03-30 02:14:00 92.08 kg [facility] BMI 2023-03-30 02:14:00 37.13 kg/m2 [facility] Respiratory rate 2022-08-03 14:40:00 18 /min [facility] Systolic blood pressure 2022-08-03 12:13:00 112 mm[Hg] [facility] Diastolic blood pressure 2022-08-03 12:13:00 77 mm[Hg] [facility] Heart rate 2022-08-03 12:13:00 115 /min [facility] Oxygen saturation in Arterial blood by Pulse oximetry 2022-08-03 12:13:00 93 /min [facility] Body temperature 2022-08-03 12:00:00 36.83 Radha [facility] Body height 2022-08-02 21:52:00 160.2 cm [facility] Body weight 2022-08-02 21:52:00 95 kg [facility] BMI 2022-08-02 21:52:00 37.02 kg/m2 [facility] BP Systolic 2022-07-24 13:31:00 136 [...] 2021-06-18 14:22:00 Procedures Procedure Date / Time Performed Performing Clinician Source TRANSESOPHAGEAL ECHO 2023-06-16 11:05:00 Abbi [facility] T SPOT TB 2023-06-15 04:51:00 Rossy [facility] FUNGITELL R B-D-GLUCAN WITH REFLEX TO TITER 2023-06-15 04:51:00 Rossy [facility] ASPERGILLUS GALACTOMANNAN ANTIGEN 2023-06-15 04:51:00 Rossy [facility] VANCOMYCIN LEVEL, TROUGH 2023-06-15 04:51:00 Kaylene Mendosa [facility] T-SPOT(R).TB (QUEST) 2023-06-15 04:27:00 System, Provider Not In [facility] ECHO W CONTRAST & DOPPLER 2023-06-14 09:22:00 [facility] HEMOGLOBIN A1C 2023-06-14 04:08:00 Cara Burgess [facility] CBC (HEMOGRAM ONLY) 2023-06-14 04:08:00 [facility] BASIC METABOLIC PANEL 2023-06-14 04:08:00 [facility] CRYPTOCOCCAL ANTIGEN 2023-06-13 17:21:00 Rossy [facility] HC LAB HIV-1 AG W/HIV-1&2 AB 2023-06-13 17:21:00 Rossy [facility] VENOUS DOPPLER ARM, LEFT 2023-06-13 17:20:00 Cara Burgess [facility] LEGIONELLA ANTIGEN, URINE 2023-06-13 17:00:00 [facility] SPUTUM CULTURE + GRAM STAIN 2023-06-13 14:33:00 [facility] MR LUMBAR SPINE WITH & WITHOUT IV CONTRAST 2023-06-13 13:03:47 Burt Nelson [facility] ECG 12-LEAD 2023-06-13 11:47:02 [facility] ECG 12-LEAD 2023-06-13 11:47:02 Unknown, Hl7 Doctor [facility] MRSA SCREEN 2023-06-13 09:19:00 Abbi [facility] CBC W/PLT COUNT & AUTO DIFFERENTIAL 2023-06-13 06:03:00 [facility] COMPREHENSIVE METABOLIC PANEL 2023-06-13 06:03:00 [facility] PROTHROMBIN TIME/INR 2023-06-13 06:03:00 [facility] CREATINE KINASE (CK) 2023-06-13 06:03:00 [facility] CBC W/PLT COUNT & AUTO DIFFERENTIAL 2023-06-13 06:03:00 [facility] BLOOD CULTURE 2023-06-13 06:02:00 Cara Burgess [facility] CBC W/PLT COUNT & AUTO DIFFERENTIAL 2023-06-02 04:41:00 Sunil Chu [facility] BASIC METABOLIC PANEL 2023-06-02 04:41:00 Sunil Chu [facility] MAGNESIUM 2023-06-02 04:41:00 Sunil Chu [facility] PHOSPHORUS 2023-06-02 04:41:00 Sunil Chu [facility] CBC W/PLT COUNT & AUTO DIFFERENTIAL 2023-06-02 04:41:00 Sunil Chu [facility] XR SPINE LUMBAR 1 VIEW 2023-06-01 10:31:00 Adam Garcia [facility] XR SPINE LUMBAR 1 VIEW 2023-06-01 09:46:00 Adam Garcia [facility] LAMINECTOMY, SPINE, LUMBAR 2023-06-01 09:10:00 Adam Garcia [facility] PROCEDURE W/ C-ARM 2023-06-01 09:10:00 Adam Garcia [facility] LAMINECTOMY, SPINE, LUMBAR 2023-06-01 07:30:00 Adam Garcia [facility] PROCEDURE W/ C-ARM 2023-06-01 07:30:00 Adam Garcia [facility] SCREEN, URINE 2023-06-01 04:33:00 Adam Garcia [facility] BASIC METABOLIC PANEL 2023-05-31 22:55:00 Patricia [facility] CBC W/PLT COUNT & AUTO DIFFERENTIAL 2023-05-31 22:55:00 Patricia [facility] PT/APTT 2023-05-31 22:55:00 Patricia [facility] CBC W/PLT COUNT & AUTO DIFFERENTIAL 2023-05-31 22:55:[address] [facility] [address] NECK SOFT TISSUE WITHOUT IV CONTRAST 2023-05-31 09:39:[address] [facility] TYPE AND SCREEN, AUTOMATED 2023-05-31 09:13:00 [facility] 2023-05-29 06:43:[address] [facility] CBC W/PLT COUNT & AUTO DIFFERENTIAL 2023-05-29 06:43:[address] [facility] CBC W/PLT COUNT & AUTO DIFFERENTIAL 2023-05-29 06:43:[address] [facility] XR SPINE CERVICAL 2 OR 3 VIEWS 2023-05-28 18:57:00 [facility] [place] FLU[facility] NON-SPECIFIC UP TO 1 HOUR 2023-05-28 10:48:00 JoseAdam [facility] [place] FLUORO NON-SPECIFIC UP TO 1 HOUR 2023-05-28 10:07:00 Adam Garcia [facility] DISCECTOMY, SPINE, CERVICAL, ANTERIOR APPROACH, WITH FUSION 2023-05-28 08:15:00 Adam Garcia [facility] INSERTION, HARDWARE, SPINAL 2023-05-28 08:15:00 Adam Garcia [facility] PROCEDURE, ALLOGRAFT, FOR SPINE SURGERY 2023-05-28 08:15:00 Adam Garcia [facility] AUTOGRAFT FOR SPINE SURGERY 2023-05-28 08:15:00 Adam Garcia [facility] PROCEDURE W/ C-ARM 2023-05-28 08:15:00 Adam Garcia [facility] NEUROPHYSIOLOGIC MONITORING, INTRAOPERATIVE 2023-05-28 08:15:00 Adam Garcia [facility] PROCEDURE, USING OPERATING MICROSCOPE 2023-05-28 08:15:00 Adam Garcia [facility] HCG, QUANTITATIVE, 2023-05-28 07:42:00 Yue Bui [facility] TYPE AND SCREEN, AUTOMATED 2023-05-28 07:42:00 Quin Scruggs [facility] XR CHEST 1 VIEW PORTABLE / BEDSIDE 2023-04-01 15:32:16 Devora [facility] B-TYPE NATRIURETIC FACTOR (BNP) 2023-04-01 13:32:00 [facility] ECHO W CONTRAST & DOPPLER 2023-03-31 20:18:37 Jasen [facility] MR CERVICAL SPINE WITHOUT IV CONTRAST 2023-03-31 09:25:00 Selin Lewis [facility] CBC (HEMOGRAM ONLY) 2023-03-31 03:45:00 Jasen [facility] COMPREHENSIVE METABOLIC PANEL 2023-03-31 03:45:00 Jasen [facility] ARTERIAL DOPPLER LEGS BILATERAL 2023-03-30 15:45:00 Jasen [facility] ARTERIAL (ALEISHA'S W/ DOPPLER) ONLY 2023-03-30 15:44:00 Jasen [facility] ECG 12-LEAD 2023-03-30 13:06:22 Jasen [facility] ECG 12-LEAD 2023-03-30 13:06:22 Unknown, Hl7 Doctor [facility] MR THORACIC SPINE WITHOUT IV CONTRAST 2023-03-30 12:29:58 Gloria Reyes [facility] MR LUMBAR SPINE WITHOUT IV CONTRAST 2023-03-30 11:58:00 Gloria Reyes [facility] EEG AWAKE AND DROWSY 2023-03-30 09:57:53 Berry [facility] VALPROIC ACID LEVEL, TOTAL 2023-03-30 09:06:00 [facility] W/ REFLEX URINE CULTURE 2023-03-30 03:54:00 [facility] CBC (HEMOGRAM ONLY) 2023-03-30 03:52:00 Jasen [facility] COMPREHENSIVE METABOLIC PANEL 2023-03-30 03:52:00 [facility] HEMOGLOBIN A1C 2023-03-30 03:52:00 [facility] PT/APTT 2023-03-30 03:52:00 Thomas Lozoya [facility] EKG-SCANNED 2023-03-29 00:00:00 Provider, Default Scanning [facility] CT HEAD WO CONTRAST 2022-12-11 18:36:49 Alfonso Alvarado [facility] URINE DRUG (IMMUNOASSAY) - COMPREHENSIVE DRUG SCREEN 2022-12-11 17:13:00 Alfonso Alvarado [facility] URINALYSIS 2022-12-11 17:13:00 Alfonso Alvarado [facility] CT CHEST PULMONARY ANGIOGRAM 2022-12-11 16:26:39 Alfonso Alvarado [facility] MAGNESIUM 2022-12-11 14:57:00 Alfonso Alvarado [facility] COMP. METABOLIC PANEL (20400) 2022-12-11 14:57:00 Alfonso Alvarado [facility] D-DIMER 2022-12-11 14:15:00 Alfonso Alvarado [facility] XR CHEST 1 VW 2022-12-11 14:10:26 Alfonso Alvarado [facility] TROPONIN I 2022-12-11 14:02:00 Alfonso Alvarado [facility] CBC WITH DIFF 2022-12-11 14:02:00 Alfonso Alvarado [facility] N-TERMINAL PRO-BNP 2022-12-11 14:02:00 Alfonso Alvarado [facility] HB ECG ROUTINE & RHYTHM STRIP 2022-12-11 14:01:08 Alfonso Alvarado [facility] CONSENT/REFUSAL FOR DIAGNOSI S AND TREATMENT 2022-12-11 13:52:01 Doctor Unassigned, [place] [facility] ECG 12-LEAD 2022-08-03 05:03:32 Unknown, Hl7 Doctor [facility] ECG 12-LEAD 2022-08-03 05:03:32 Unknown, Hl7 [facility] LIPID PANEL 2022-08-02 21:14:00 [facility] TSH/FREE T4 IF INDICATED 2022-08-02 21:14:00 [facility] VITAMIN B12 2022-08-02 21:14:00 [facility] HEMOGLOBIN A1C 2022-08-02 21:14:00 [facility] COMPREHENSIVE METABOLIC PANEL 2022-08-02 21:14:00 [facility] CBC W/PLT COUNT & AUTO DIFFERENTIAL 2022-08-02 21:14:00 [facility] RPR 2022-08-02 21:14:00 [facility] HC LAB HIV-1 AG W/HIV-1&2 AB 2022-08-02 21:14:00 [facility] C-REACTIVE PROTEIN 2022-08-02 21:14:00 [facility] CBC W/PLT COUNT & AUTO DIFFERENTIAL 2022-08-02 21:14:00 [facility] EKG-SCANNED 2022-08-02 00:00:00 Provider, Default Scanning [facility] CT HEAD WO CONTRAST 2022-08-01 23:52:15 Lorenza Lowry [facility] GALV ONLY - INFLUENZA A B RS V PCR 2022-08-01 18:28:00 Letitia Chambers [facility] TRANSTHORACIC ECHO (TTE) COMPLETE W/ CONTRAST 2022-08-01 14:42:00 Kylee Montez [facility] MAGNESIUM 2022-08-01 10:42:00 [facility] BASIC METABOLIC PANEL (NA, K , CL, CO2, GLUCOSE, BUN, CREATININE, CA) 2022-08-01 10:42:00 [facility] CBC WITH DIFF 2022-08-01 10:42:00 [facility] N-TERMINAL PRO-BNP 2022-08-01 10:42:00 [facility]SE (AUTOMATED) 2022-08-01 06:56:00 Essence [facility] CRITICAL CARE 2022-07-31 22:31:36 [facility] URINALYSIS 2022-07-31 20:52:00 [facility] URINE DRUG (IMMUNOASSAY) - COMPREHENSIVE DRUG SCREEN W/O REFLEX 2022-07-31 20:52:00 [facility] XR CHEST 1 VW 2022-07-31 18:45:17 [facility] LIPASE 2022-07-31 17:58:00 [facility] TROPONIN I 2022-07-31 17:58:00 [facility] COMP. METABOLIC PANEL (92663) 2022-07-31 17:58:00 [facility] CBC WITH DIFF 2022-07-31 17:58:00 [facility] PROTHROMBIN TIME / INR 2022-07-31 17:58:00 [facility] ACTIVATED PARTIAL THRMPLAS DAVID 2022-07-31 17:58:00 [facility] N-TERMINAL PRO-BNP 2022-07-31 17:58:00 [facility] HB ECG ROUTINE & RHYTHM STRIP 2022-07-31 17:46:28 [facility] NOTICE OF PRIVACY PRACTICES 2022-07-31 17:35:38 Doctor Unassigned, [place] [facility] CONSENT/REFUSAL FOR DIAGNOSI S AND TREATMENT 2022-07-31 17:35:13 Doctor Unassigned, [place] [facility] PHOSPHORUS 2022-05-08 05:51:00 Shefali Azeem [facility] MAGNESIUM 2022-05-08 05:51:00 Shefali [facility] BASIC METABOLIC PANEL (NA, K , CL, CO2, GLUCOSE, BUN, CREATININE, CA) 2022-05-08 05:51:00 Shefali [facility] CBC WITH DIFF 2022-05-08 05:51:00 Shefali [facility] BASIC METABOLIC PANEL (NA, K , CL, CO2, GLUCOSE, BUN, CREATININE, CA) 2022-05-07 07:09:00 John Cintron [facility] CBC WITH DIFF 2022-05-07 07:09:00 John Cintron [facility] POCT GLUCOSE (AUTOMATED) 2022-05-07 01:16:00 Brandyn Ibrahim [facility] HB ABO GROUPING 2022-05-06 05:07:00 Ismael Dunn [facility] BASIC METABOLIC PANEL (NA, K , CL, CO2, GLUCOSE, BUN, CREATININE, CA) 2022-05-06 05:04:00 Shefali [facility] CBC WITH DIFF 2022-05-06 05:04:00 Shefali [facility] KEPPRA (LEVETIRACETAM) 2022-05-06 05:04:00 Shefali [facility] MR LUMBAR SPINE WO CONTRAST 2022-05-06 02:54:37 Ender Monet [facility] ELECTROENCEPHALOGRAM 2022-05-06 00:00:00 John Cintron [facility] BASIC METABOLIC PANEL (NA, K , CL, CO2, GLUCOSE, BUN, CREATININE, CA) 2022-05-05 07:57:00 [place], Scientologist [facility] CBC WITH DIFF 2022-05-05 07:57:00 Ismael Dunn [facility] PROTHROMBIN TIME / INR 2022-05-05 07:57:00 Ismael Dunn [facility] ACTIVATED PARTIAL THRMPLAS DAVID 2022-05-05 07:57:00 Ismael Dunn [facility] FIBRINOGEN 2022-05-05 07:57:00 Ismael Dunn [facility] EMERGENCY SERVICES AGREEMENT S AND AUTHORIZATIONS 2022-05-04 05:01:00 Doctor Unassigned, [place] [facility] VITAMIN D, 25-OH 2022-04-15 16:53:00 Sen Toledo [facility] MR THORACIC SPINE WO CONTRAST 2022-04-15 11:56:19 Harshil [facility] MR CERVICAL SPINE WO CONTRAST 2022-04-15 11:20:00 Harshil [facility] BASIC METABOLIC PANEL (NA, K , CL, CO2, GLUCOSE, BUN, CREATININE, CA) 2022-04-15 10:36:00 Charmaine Morataya [facility] TEST, URINE 2022-04-15 04:39:00 Harshil [facility] URINE DRUG (IMMUNOASSAY) - COMPREHENSIVE DRUG SCREEN 2022-04-15 04:39:00 Harshil [facility] URINALYSIS 2022-04-15 04:39:00 Harshil [facility] TRANSTHORACIC ECHO (TTE) COMPLETE W/ CONTRAST 2022-04-14 16:37:03 Harshil [facility] KEPPRA (LEVETIRACETAM) 2022-04-14 15:30:00 Harshil [facility] MAGNESIUM 2022-04-14 10:03:00 Harshil [facility] BASIC METABOLIC PANEL (NA, K , CL, CO2, GLUCOSE, BUN, CREATININE, CA) 2022-04-14 10:03:00 Harshil [facility] MR LUMBAR SPINE WO CONTRAST 2022-04-14 02:48:12 Harshil [facility] MR STROKE BRAIN WO CONTRAST 2022-04-14 02:29:00 Harshil Soumya [facility] CT STROKE ANGIOGRAM HEAD 2022-04-13 18:40:00 Sapna Vargas [facility] CT STROKE ANGIOGRAM NECK 2022-04-13 18:40:00 Sapna Vargas [facility] CT STROKE HEAD WO CONTRAST 2022-04-13 18:36:00 Sapna Vargas [facility] TROPONIN I 2022-04-13 18:17:00 Sapna Vargas [facility] THYROID STIMULATING HORMONE 2022-04-13 18:17:00 Harshil [facility] BASIC METABOLIC PANEL (NA, K , CL, CO2, GLUCOSE, BUN, CREATININE, CA) 2022-04-13 18:17:00 Sapna Vargas [facility] LIPID PANEL (04176)(TOTAL CHOLESTEROL, TRIGLYCERIDES, HDL) 2022-04-13 18:17:00 Harshil [facility] CBC WITHOUT DIFF 2022-04-13 18:17:00 Sapna Vargas [facility] GLYCOSYLATED HEMOGLOBIN (A1C) 2022-04-13 18:17:00 Harshil [facility] PROTHROMBIN TIME / INR 2022-04-13 18:17:00 Sapna Vargas [facility] ACTIVATED PARTIAL THRMPLAS DAVID 2022-04-13 18:17:00 Sapna Vargas [facility] COVID-19 (ID NOW RAPID TESTING) 2022-04-13 18:17:00 Sapna Vargas [facility] LAB ONLY COVID INTERPRETATION 2022-04-13 18:17:00 Sapna Vargas [facility] HB ECG ROUTINE & RHYTHM STRIP 2022-04-13 18:15:49 Sapna Vargas [facility] CONSENT/REFUSAL FOR DIAGNOSI S AND TREATMENT 2022-04-13 18:05:14 Doctor Unassigned, [place] [facility] HOSPITAL ADMISSION 2022-04-13 05:01:00 Doctor Unassigned, [place] [facility] SARS-COV-2 COVID-19 VACCINE 12 YRS+,0.3ML,IM (PFIZER - [facility]) 2022-02-19 15:21:12 Doctor Unassigned, [place] [facility] URINE DRUG (IMMUNOASSAY) - COMPREHENSIVE DRUG SCREEN W/O REFLEX 2021-11-23 21:21:00 Nichelle Virk [facility] CT HEAD WO CONTRAST 2021-11-23 20:58:00 Nichelle Virk [facility] POCT TEST 2021-11-23 20:46:00 Nichelle Virk [facility] URINALYSIS 2021-11-23 20:43:00 Nichelle Virk [facility] LIPASE 2021-11-23 20:27:00 [facility]-11-23 20:27[facility]00 [facility] COMP. METABOLIC PANEL (02416) 2021-11-23 20:27:00 Nichelle Virk [facility] CBC WITH DIFF 2021-11-23 20:27:00 Nichelle Virk [facility] POCT GLUCOSE (AUTOMATED) 2021-11-23 20:15:00 Doctor Unassigned, [place] [facility] SARS-COV-2 COVID-19 VACCINE,0.3ML,IM (PFIZER) 2021-05-24 14:23:12 Doctor Unassigned, [place] [facility] SARS-COV-2 COVID-19 VACCINE,0.3ML,IM (PFIZER) 2021-05-03 14:59:29 Doctor Unassigned, [place] [facility] EMERGENCY SERVICES AGREEMENT S AND AUTHORIZATIONS 2021-04-16 05:01:00 Doctor Unassigned, [place] [facility] URINALYSIS 2021-03-17 03:09:00 Fabrice Chakraborty [facility] XR CHEST 1 VW 2021-03-17 01:45:07 Fabrice Chakraborty [facility] TROPONIN I 2021-03-17 01:35:00 Fabrice Chakraborty [facility] COMP. METABOLIC PANEL (85511) 2021-03-17 01:35:00 Fabrice Chakraborty [facility] CBC WITH DIFF 2021-03-17 01:35:00 Fabrice Chakraborty [facility] N-TERMINAL PRO-BNP 2021-03-17 01:35:00 Fabrice Chakraborty [facility] COVID-19 (ID NOW RAPID TESTING) 2021-03-17 00:58:00 Brian Ray [facility] CONSENT/REFUSAL FOR DIAGNOSI S AND TREATMENT 2021-03-17 00:32:59 Doctor Unassigned, [place] [facility] COVID-19 (ID NOW RAPID TESTING) 2021-02-19 17:04:00 Anali Monroy [facility] CT ABDOMEN PELVIS W CONTRAST 2021-02-19 16:41:18 Anali Monroy [facility] LIPASE 2021-02-19 15:58:00 Anali Monroy [facility] COMP. METABOLIC PANEL (01658) 2021-02-19 15:58:00 Anali Monroy [facility] CBC WITH DIFF 2021-02-19 15:58:00 Anali Monroy [facility] URINALYSIS 2021-02-19 15:58:00 Anali Monroy [facility] NOTICE OF PRIVACY PRACTICES 2021-02-19 15:30:46 Doctor Unassigned, [place] [facility] CONSENT/REFUSAL FOR DIAGNOSI S AND TREATMENT 2021-02-19 15:30:30 Doctor Unassigned, [place] [facility] Plan of Care Planned Activity Planned Date Details Comments Source Future Scheduled Test 2025-08-02 00:00:00 Lipid panel (procedure) [code = 87398034] [facility] Future Scheduled Test 2025-08-02 00:00:00 Lipid panel (procedure) [code = 24968407] [facility] Future Scheduled Test 2025-08-02 00:00:00 Lipid panel (procedure) [code = 97798953] [facility] Future Scheduled Test 2025-08-02 00:00:00 Lipid panel (procedure) [code = 95375047] [facility] Future Scheduled Test 2025-08-02 00:00:00 Lipid panel (procedure) [code = 62222853] [facility] Future Scheduled Test 2025-08-02 00:00:00 Lipid panel (procedure) [code = 39473955] [facility] Future Scheduled Test 2025-08-02 00:00:00 Lipid panel (procedure) [code = 37078899] [facility] Future Scheduled Test 2025-08-02 00:00:00 Lipid panel (procedure) [code = 02152066] [facility] Future Scheduled Test 2025-08-02 00:00:00 Lipid panel (procedure) [code = 25881043] [facility] Future Scheduled Test 2025-08-02 00:00:00 Lipid panel (procedure) [code = 88638734] [facility] Future Scheduled Test 2025-08-02 00:00:00 Lipid panel (procedure) [code = 26668045] [facility] Future Scheduled Test 2025-08-02 00:00:00 Lipid panel (procedure) [code = 48896185] [facility] Future Scheduled Test 2025-08-02 00:00:00 Lipid panel (procedure) [code = 64417465] [facility] Future Scheduled Test 2025-08-02 00:00:00 Lipid panel (procedure) [code = 42623739] [facility] Future Scheduled Test 2025-08-02 00:00:00 Lipid panel (procedure) [code = 14805272] [facility] Future Scheduled Test 2025-08-02 00:00:00 Lipid panel (procedure) [code = 16305176] [facility] Future Scheduled Test 2025-08-02 00:00:00 Lipid panel (procedure) [code = 94588086] [facility] Future Scheduled Test 2025-08-02 00:00:00 Lipid panel (procedure) [code = 66844251] [facility] Future Scheduled Test 2025-08-02 00:00:00 Lipid panel (procedure) [code = 06718494] [facility] Future Scheduled Test 2025-08-02 00:00:00 Lipid panel (procedure) [code = 67187357] [facility] Future Scheduled Test 2025-08-02 00:00:00 Lipid panel (procedure) [code = 18856490] [facility] Future Scheduled Test 2025-08-02 00:00:00 Lipid panel (procedure) [code = 05902525] [facility] Future Scheduled Test 2025-08-02 00:00:00 Lipid panel (procedure) [code = 75958749] [facility] Future Scheduled Test 2025-08-02 00:00:00 Lipid panel (procedure) [code = 81280826] [facility] Future Scheduled Test 2025-08-02 00:00:00 Lipid panel (procedure) [code = 76420214] [facility] Future Scheduled Test 2025-08-02 00:00:00 Lipid panel (procedure) [code = 01181698] [facility] Future Scheduled Test 2025-08-02 00:00:00 Lipid panel (procedure) [code = 22239162] [facility] Future Scheduled Test 2025-08-02 00:00:00 Lipid panel (procedure) [code = 21888054] [facility] Future Scheduled Test 2025-08-02 00:00:00 Lipid panel (procedure) [code = 14713322] [facility] Future Scheduled Test 2025-08-02 00:00:00 Lipid panel (procedure) [code = 39234064] [facility] Future Scheduled Test 2024-05-28 00:00:00 Tobacco Cessation Counseling and Screening (12+) [code = Tobacco Cessation Counseling and Screening (12+)] [facility] Future Scheduled Test 2024-05-28 00:00:00 Tobacco Cessation Counseling and Screening (12+) [code = Tobacco Cessation Counseling and Screening (12+)] [facility] Future Scheduled Test 2024-05-28 00:00:00 Tobacco Cessation Counseling and Screening (12+) [code = Tobacco Cessation Counseling and Screening (12+)] [facility] Future Scheduled Test 2024-05-28 00:00:00 Tobacco Cessation Counseling and Screening (12+) [code = Tobacco Cessation Counseling and Screening (12+)] [facility] Future Scheduled Test 2024-05-28 00:00:00 Tobacco Cessation Counseling and Screening (12+) [code = Tobacco Cessation Counseling and Screening (12+)] [facility] Future Scheduled Test 2024-05-26 00:00:00 Tobacco Cessation Counseling and Screening (12+) [code = Tobacco Cessation Counseling and Screening (12+)] [facility] Future Scheduled Test 2024-05-26 00:00:00 Tobacco Cessation Counseling and Screening (12+) [code = Tobacco Cessation Counseling and Screening (12+)] [facility] Future Scheduled Test 2023-03-20 00:00:00 Influenza Vaccine (#1) [code = Influenza Vaccine (#1)] [facility] Future Scheduled Test 2023-03-20 00:00:00 Influenza Vaccine (#1) [code = Influenza Vaccine (#1)] [facility] Future Scheduled Test 2023-03-20 00:00:00 Influenza Vaccine (#1) [code = Influenza Vaccine (#1)] [facility] Future Scheduled Test 2023-03-20 00:00:00 Influenza Vaccine (#1) [code = Influenza Vaccine (#1)] [facility] Future Scheduled Test 2023-03-20 00:00:00 Influenza Vaccine (#1) [code = Influenza Vaccine (#1)] [facility] Future Scheduled Test 2023-03-20 00:00:00 INFLUENZA VACCINE (Season Ended) [code = INFLUENZA VACCINE (Season Ended)] [facility] [facility] 2023-03-20 00:00:00 INFLUENZA VACCINE (Season Ended) [code = INFLUENZA VACCINE (Season Ended)] [facility] Scheduled Test 2023-03-20 00:00:00 INFLUENZA VACCINE (Season Ended) [code = INFLUENZA VACCINE (Season Ended)] [facility] Future Scheduled Test 2023-03-20 00:00:00 INFLUENZA VACCINE (Season Ended) [code = INFLUENZA VACCINE (Season Ended)] [facility] Scheduled Test 2023-03-20 00:00:00 INFLUENZA VACCINE (Season Ended) [code = INFLUENZA VACCINE (Season Ended)] [facility] Scheduled Test 2023-03-20 00:00:00 INFLUENZA VACCINE (Season Ended) [code = INFLUENZA VACCINE (Season Ended)] [facility] Scheduled Test 2023-03-20 00:00:00 Influenza Vaccine (Season Ended) [code = Influenza Vaccine (Season Ended)] [facility] Scheduled Test 2023-03-20 00:00:00 Influenza Vaccine (Season Ended) [code = Influenza Vaccine (Season Ended)] [facility] Scheduled Test 2023-03-20 00:00:00 Influenza Vaccine (#1) [code = Influenza Vaccine (#1)] [facility] Scheduled Test 2023-03-20 00:00:00 Influenza Vaccine (#1) [code = Influenza Vaccine (#1)] [facility] Scheduled Test 2023-03-20 00:00:00 Influenza Vaccine (#1) [code = Influenza Vaccine (#1)] [facility] Future Scheduled Test 2023-03-20 00:00:00 Influenza Vaccine (#1) [code = Influenza Vaccine (#1)] [facility] Future Scheduled Test 2023-03-20 00:00:00 Influenza Vaccine (#1) [code = Influenza Vaccine (#1)] [facility] Scheduled Test 2023-03-20 00:00:00 Influenza Vaccine (#1) [code = Influenza Vaccine (#1)] [facility] Scheduled Test 2023-03-20 00:00:00 Influenza Vaccine (#1) [code = Influenza Vaccine (#1)] [facility] Future Scheduled Test 2023-03-20 00:00:00 Influenza Vaccine (#1) [code = Influenza Vaccine (#1)] [facility] Future Scheduled Test 2023-03-20 00:00:00 Influenza Vaccine (#1) [code = Influenza Vaccine (#1)] [facility] Future Scheduled Test 2023-03-20 00:00:00 Influenza Vaccine (#1) [code = Influenza Vaccine (#1)] [facility] Future Scheduled Test 2023-03-20 00:00:00 Influenza Vaccine (#1) [code = Influenza Vaccine (#1)] [facility] Scheduled Test 2023-03-20 00:00:00 Influenza Vaccine (#1) [code = Influenza Vaccine (#1)] [facility] Scheduled Test 2023-03-20 00:00:00 Influenza Vaccine (#1) [code = Influenza Vaccine (#1)] [facility] Future Scheduled Test 2022-07-20 00:00:00 DEPRESSION SCREENING (12+) [code = DEPRESSION SCREENING (12+)] [facility] Future Scheduled Test 2022-07-20 00:00:00 DEPRESSION SCREENING (12+) [code = DEPRESSION SCREENING (12+)] [facility] Scheduled Test 2022-07-20 00:00:00 DEPRESSION SCREENING (12+) [code = DEPRESSION SCREENING (12+)] [facility] Future Scheduled Test 2022-07-20 00:00:00 DEPRESSION SCREENING (12+) [code = DEPRESSION SCREENING (12+)] [facility] Future Scheduled Test 2022-07-20 00:00:00 DEPRESSION SCREENING (12+) [code = DEPRESSION SCREENING (12+)] [facility] Future Scheduled Test 2022-07-20 00:00:00 DEPRESSION SCREENING (12+) [code = DEPRESSION SCREENING (12+)] [facility] Future Scheduled Test 2022-07-20 00:00:00 DEPRESSION SCREENING (12+) [code = DEPRESSION SCREENING (12+)] [facility] Future Scheduled Test 2022-07-20 00:00:00 DEPRESSION SCREENING (12+) [code = DEPRESSION SCREENING (12+)] [facility] Future Scheduled Test 2022-07-20 00:00:00 DEPRESSION SCREENING (12+) [code = DEPRESSION SCREENING (12+)] [facility] Future Scheduled Test 2022-07-20 00:00:00 DEPRESSION SCREENING (12+) [code = DEPRESSION SCREENING (12+)] [facility] Scheduled Test 2022-07-20 00:00:00 DEPRESSION SCREENING (12+) [code = DEPRESSION SCREENING (12+)] [facility] Scheduled Test 2022-07-20 00:00:00 DEPRESSION SCREENING (12+) [code = DEPRESSION SCREENING (12+)] [facility] Future Scheduled Test 2022-07-20 00:00:00 DEPRESSION SCREENING (12+) [code = DEPRESSION SCREENING (12+)] [facility] Future Scheduled Test 2022-07-20 00:00:00 DEPRESSION SCREENING (12+) [code = DEPRESSION SCREENING (12+)] [facility] Future Scheduled Test 2022-07-20 00:00:00 DEPRESSION SCREENING (12+) [code = DEPRESSION SCREENING (12+)] [facility] Future Scheduled Test 2022-07-20 00:00:00 DEPRESSION SCREENING (12+) [code = DEPRESSION SCREENING (12+)] [facility] Future Scheduled Test 2022-07-20 00:00:00 DEPRESSION SCREENING (12+) [code = DEPRESSION SCREENING (12+)] [facility] Future Scheduled Test 2022-07-20 00:00:00 DEPRESSION SCREENING (12+) [code = DEPRESSION SCREENING (12+)] [facility] Future Scheduled Test 2022-07-20 00:00:00 DEPRESSION SCREENING (12+) [code = DEPRESSION SCREENING (12+)] [facility] Future Scheduled Test 2022-07-20 00:00:00 DEPRESSION SCREENING (12+) [code = DEPRESSION SCREENING (12+)] [facility] Future Scheduled Test 2022-07-20 00:00:00 DEPRESSION SCREENING (12+) [code = DEPRESSION SCREENING (12+)] [facility] Future Scheduled Test 2022-07-20 00:00:00 DEPRESSION SCREENING (12+) [code = DEPRESSION SCREENING (12+)] [facility] Future Scheduled Test 2022-07-20 00:00:00 DEPRESSION SCREENING (12+) [code = DEPRESSION SCREENING (12+)] [facility] Future Scheduled Test 2022-07-20 00:00:00 DEPRESSION SCREENING (12+) [code = DEPRESSION SCREENING (12+)] [facility] Scheduled Test 2022-07-20 00:00:00 DEPRESSION SCREENING (12+) [code = DEPRESSION SCREENING (12+)] [facility] Future Scheduled Test 2022-07-20 00:00:00 DEPRESSION SCREENING (12+) [code = DEPRESSION SCREENING (12+)] [facility] Future Scheduled Test 2022-07-20 00:00:00 DEPRESSION SCREENING (12+) [code = DEPRESSION SCREENING (12+)] [facility] Scheduled Test 2022-07-20 00:00:00 DEPRESSION SCREENING (12+) [code = DEPRESSION SCREENING (12+)] [facility] Future Scheduled Test 2022-07-20 00:00:00 DEPRESSION SCREENING (12+) [code = DEPRESSION SCREENING (12+)] [facility] Future Scheduled Test 2022-07-20 00:00:00 DEPRESSION SCREENING (12+) [code = DEPRESSION SCREENING (12+)] [facility] Future Scheduled Test 2022-06-21 00:00:00 COVID-19 VACCINE (4 - Booster for Pfizer series) [code = COVID-19 VACCINE (4 - Booster for Pfizer series)] [facility] Future Scheduled Test 2022-06-21 00:00:00 COVID-19 VACCINE (4 - Booster for Pfizer series) [code = COVID-19 VACCINE (4 - Booster for Pfizer series)] [facility] Scheduled Test 2022-06-21 00:00:00 COVID-19 VACCINE (4 - Booster for Pfizer series) [code = COVID-19 VACCINE (4 - Booster for Pfizer series)] [facility] Scheduled Test 2022-06-21 00:00:00 COVID-19 VACCINE (4 - Booster for Pfizer series) [code = COVID-19 VACCINE (4 - Booster for Pfizer series)] [facility] Scheduled Test 2022-04-16 00:00:00 COVID-19 VACCINE (4 - Booster for Pfizer series) [code = COVID-19 VACCINE (4 - Booster for Pfizer series)] [facility] Future Scheduled Test 2022-04-16 00:00:00 COVID-19 VACCINE (4 - Booster for Pfizer series) [code = COVID-19 VACCINE (4 - Booster for Pfizer series)] [facility] Future Scheduled Test 2022-04-16 00:00:00 COVID-19 VACCINE (4 - Booster for Pfizer series) [code = COVID-19 VACCINE (4 - Booster for Pfizer series)] [facility] Future Scheduled Test 2022-04-16 00:00:00 COVID-19 VACCINE (4 - Booster for Pfizer series) [code = COVID-19 VACCINE (4 - Booster for Pfizer series)] [facility] Future Scheduled Test 2022-04-16 00:00:00 COVID-19 VACCINE (4 - Booster for Pfizer series) [code = COVID-19 VACCINE (4 - Booster for Pfizer series)] [facility] Future Scheduled Test 2022-04-16 00:00:00 COVID-19 VACCINE (4 - Booster for Pfizer series) [code = COVID-19 VACCINE (4 - Booster for Pfizer series)] [facility] Future Scheduled Test 2022-04-16 00:00:00 COVID-19 VACCINE (4 - Booster for Pfizer series) [code = COVID-19 VACCINE (4 - Booster for Pfizer series)] [facility] Future Scheduled Test 2022-04-16 00:00:00 COVID-19 VACCINE (4 - Booster for Pfizer series) [code = COVID-19 VACCINE (4 - Booster for Pfizer series)] [facility] Future Scheduled Test 2022-04-16 00:00:00 COVID-19 VACCINE (4 - Booster for Pfizer series) [code = COVID-19 VACCINE (4 - Booster for Pfizer series)] [facility] Future Scheduled Test 2022-04-16 00:00:00 COVID-19 VACCINE (4 - Booster for Pfizer series) [code = COVID-19 VACCINE (4 - Booster for Pfizer series)] [facility] Future Scheduled Test 2022-04-16 00:00:00 COVID-19 VACCINE (4 - Booster for Pfizer series) [code = COVID-19 VACCINE (4 - Booster for Pfizer series)] [facility] Future Scheduled Test 2022-04-16 00:00:00 COVID-19 VACCINE (4 - Booster for Pfizer series) [code = COVID-19 VACCINE (4 - Booster for Pfizer series)] [facility] Future Scheduled Test 2022-04-16 00:00:00 COVID-19 VACCINE (4 - Booster for Pfizer series) [code = COVID-19 VACCINE (4 - Booster for Pfizer series)] [facility] Future Scheduled Test 2022-04-16 00:00:00 COVID-19 VACCINE (4 - Booster for Pfizer series) [code = COVID-19 VACCINE (4 - Booster for Pfizer series)] [facility] Future Scheduled Test 2022-04-16 00:00:00 COVID-19 VACCINE (4 - Booster for Pfizer series) [code = COVID-19 VACCINE (4 - Booster for Pfizer series)] [facility] Future Scheduled Test 2022-04-16 00:00:00 COVID-19 VACCINE (4 - Booster for Pfizer series) [code = COVID-19 VACCINE (4 - Booster for Pfizer series)] [facility] Future Scheduled Test 2022-04-16 00:00:00 COVID-19 VACCINE (4 - Booster for Pfizer series) [code = COVID-19 VACCINE (4 - Booster for Pfizer series)] [facility] Future Scheduled Test 2022-04-16 00:00:00 COVID-19 VACCINE (4 - Booster for Pfizer series) [code = COVID-19 VACCINE (4 - Booster for Pfizer series)] [facility] Future Scheduled Test 2022-04-16 00:00:00 COVID-19 VACCINE (4 - Booster for Pfizer series) [code = COVID-19 VACCINE (4 - Booster for Pfizer series)] [facility] Future Scheduled Test 2022-04-16 00:00:00 COVID-19 VACCINE (4 - Booster for Pfizer series) [code = COVID-19 VACCINE (4 - Booster for Pfizer series)] [facility] Future Scheduled Test 2022-04-16 00:00:00 COVID-19 VACCINE (4 - Pfizer series) [code = COVID-19 VACCINE (4 - Pfizer series)] [facility] Future Scheduled Test 2022-04-16 00:00:00 COVID-19 VACCINE (4 - Pfizer series) [code = COVID-19 VACCINE (4 - Pfizer series)] [facility] Future Scheduled Test 2022-04-16 00:00:00 COVID-19 VACCINE (4 - Pfizer series) [code = COVID-19 VACCINE (4 - Pfizer series)] [facility] Future Scheduled Test 2022-04-16 00:00:00 COVID-19 VACCINE (4 - Pfizer series) [code = COVID-19 VACCINE (4 - Pfizer series)] [facility] Future Scheduled Test 2022-04-16 00:00:00 COVID-19 VACCINE (4 - Booster for Pfizer series) [code = COVID-19 VACCINE (4 - Booster for Pfizer series)] [facility] Future Scheduled Test 2022-04-16 00:00:00 COVID-19 VACCINE (4 - Pfizer series) [code = COVID-19 VACCINE (4 - Pfizer series)] [facility] Future Scheduled Test 2022-03-20 00:00:00 INFLUENZA VACCINE (#1) [code = INFLUENZA VACCINE (#1)] [facility] Future Scheduled Test 2022-03-20 00:00:00 INFLUENZA VACCINE (#1) [code = INFLUENZA VACCINE (#1)] [facility] Future Scheduled Test 2022-03-20 00:00:00 INFLUENZA VACCINE (#1) [code = INFLUENZA VACCINE (#1)] [facility] Future Scheduled Test 2022-03-20 00:00:00 INFLUENZA VACCINE (#1) [code = INFLUENZA VACCINE (#1)] [facility] Future Scheduled Test 2022-01-14 00:00:00 SHINGLES VACCINES (1 of 2) [code = SHINGLES VACCINES (1 of 2)] [facility] Scheduled Test 2022-01-14 00:00:00 SHINGLES VACCINES (1 of 2) [code = SHINGLES VACCINES (1 of 2)] [facility] Future Scheduled Test 2022-01-14 00:00:00 SHINGLES VACCINES (1 of 2) [code = SHINGLES VACCINES (1 of 2)] [facility] Future Scheduled Test 2022-01-14 00:00:00 SHINGLES VACCINES (1 of 2) [code = SHINGLES VACCINES (1 of 2)] [facility] Future Scheduled Test 2022-01-14 00:00:00 SHINGLES VACCINES (1 of 2) [code = SHINGLES VACCINES (1 of 2)] [facility] Future Scheduled Test 2022-01-14 00:00:00 SHINGLES VACCINES (1 of 2) [code = SHINGLES VACCINES (1 of 2)] [facility] Future Scheduled Test 2022-01-14 00:00:00 SHINGLES VACCINES (1 of 2) [code = SHINGLES VACCINES (1 of 2)] [facility] Future Scheduled Test 2022-01-14 00:00:00 SHINGLES VACCINES (1 of 2) [code = SHINGLES VACCINES (1 of 2)] [facility] Future Scheduled Test 2022-01-14 00:00:00 SHINGLES VACCINES (1 of 2) [code = SHINGLES VACCINES (1 of 2)] [facility] Future Scheduled Test 2022-01-14 00:00:00 SHINGLES VACCINES (1 of 2) [code = SHINGLES VACCINES (1 of 2)] [facility] Future Scheduled Test 2022-01-14 00:00:00 SHINGLES VACCINES (1 of 2) [code = SHINGLES VACCINES (1 of 2)] [facility] Future Scheduled Test 2022-01-14 00:00:00 SHINGLES VACCINES (1 of 2) [code = SHINGLES VACCINES (1 of 2)] [facility] Future Scheduled Test 2022-01-14 00:00:00 SHINGLES VACCINES (1 of 2) [code = SHINGLES VACCINES (1 of 2)] [facility] Future Scheduled Test 2022-01-14 00:00:00 SHINGLES VACCINES (1 of 2) [code = SHINGLES VACCINES (1 of 2)] [facility] Future Scheduled Test 2022-01-14 00:00:00 SHINGLES VACCINES (1 of 2) [code = SHINGLES VACCINES (1 of 2)] [facility] Future Scheduled Test 2022-01-14 00:00:00 Screening for malignant neoplasm of lung (procedure) [code = [id number]] [facility] Future Scheduled Test 2022-01-14 00:00:00 SHINGLES VACCINES (1 of 2) [code = SHINGLES VACCINES (1 of 2)] [facility] Future Scheduled Test 2022-01-14 00:00:00 Screening for malignant neoplasm of lung (procedure) [code = [id number]] [facility] Future Scheduled Test 2022-01-14 00:00:00 SHINGLES VACCINES (1 of 2) [code = SHINGLES VACCINES (1 of 2)] [facility] Future Scheduled Test 2022-01-14 00:00:00 Screening for malignant neoplasm of lung (procedure) [code = [id number]] [facility] Future Scheduled Test 2022-01-14 00:00:00 SHINGLES VACCINES (1 of 2) [code = SHINGLES VACCINES (1 of 2)] [facility] Future Scheduled Test 2022-01-14 00:00:00 Screening for malignant neoplasm of lung (procedure) [code = [id number]] [facility] Future Scheduled Test 2022-01-14 00:00:00 SHINGLES VACCINES (1 of 2) [code = SHINGLES VACCINES (1 of 2)] [facility] Future Scheduled Test 2022-01-14 00:00:00 Screening for malignant neoplasm of lung (procedure) [code = [id number]] [facility] Future Scheduled Test 2022-01-14 00:00:00 SHINGLES VACCINES (1 of 2) [code = SHINGLES VACCINES (1 of 2)] [facility] Future Scheduled Test 2022-01-14 00:00:00 Screening for malignant neoplasm of lung (procedure) [code = [id number]] [facility] Future Scheduled Test 2022-01-14 00:00:00 SHINGLES VACCINES (1 of 2) [code = SHINGLES VACCINES (1 of 2)] [facility] Future Scheduled Test 2022-01-14 00:00:00 Screening for malignant neoplasm of lung (procedure) [code = [id number]] [facility] Future Scheduled Test 2022-01-14 00:00:00 SHINGLES VACCINES (1 of 2) [code = SHINGLES VACCINES (1 of 2)] [facility] Future Scheduled Test 2022-01-14 00:00:00 SHINGLES VACCINES (1 of 2) [code = SHINGLES VACCINES (1 of 2)] [facility] Future Scheduled Test 2022-01-14 00:00:00 SHINGLES VACCINES (1 of 2) [code = SHINGLES VACCINES (1 of 2)] [facility] Future Scheduled Test 2022-01-14 00:00:00 Screening for malignant neoplasm of lung (procedure) [code = [id number]] [facility] Future Scheduled Test 2022-01-14 00:00:00 SHINGLES VACCINES (1 of 2) [code = SHINGLES VACCINES (1 of 2)] [facility] Future Scheduled Test 2022-01-14 00:00:00 Screening for malignant neoplasm of lung (procedure) [code = [id number]] [facility] Future Scheduled Test 2022-01-14 00:00:00 SHINGLES VACCINES (1 of 2) [code = SHINGLES VACCINES (1 of 2)] [facility] Future Scheduled Test 2022-01-14 00:00:00 Screening for malignant neoplasm of lung (procedure) [code = [id number]] [facility] Future Scheduled Test 2022-01-14 00:00:00 SHINGLES VACCINES (1 of 2) [code = SHINGLES VACCINES (1 of 2)] [facility] Future Scheduled Test 2022-01-14 00:00:00 Screening for malignant neoplasm of lung (procedure) [code = [id number]] [facility] Future Scheduled Test 2022-01-14 00:00:00 SHINGLES VACCINES (1 of 2) [code = SHINGLES VACCINES (1 of 2)] [facility] Future Scheduled Test 2022-01-14 00:00:00 Screening for malignant neoplasm of lung (procedure) [code = 836020389] [facility] Future Scheduled Test 2022-01-14 00:00:00 SHINGLES VACCINES (1 of 2) [code = SHINGLES VACCINES (1 of 2)] [facility] Future Scheduled Test 2022-01-14 00:00:00 Screening for malignant neoplasm of lung (procedure) [code = [id number]] [facility] Future Scheduled Test 2022-01-14 00:00:00 SHINGLES VACCINES (1 of 2) [code = SHINGLES VACCINES (1 of 2)] [facility] Future Scheduled Test 2013-12-15 00:00:00 PNEUMOCOCCAL VACCINE 0-64 YRS (2 - PCV) [code = PNEUMOCOCCAL VACCINE 0-64 YRS (2 - PCV)] [facility] Future Scheduled Test 2013-12-15 00:00:00 PNEUMOCOCCAL VACCINE 0-64 YRS (2 - PCV) [code = PNEUMOCOCCAL VACCINE 0-64 YRS (2 - PCV)] [facility] Future Scheduled Test 2013-12-15 00:00:00 PNEUMOCOCCAL VACCINE 0-64 YRS (2 - PCV) [code = PNEUMOCOCCAL VACCINE 0-64 YRS (2 - PCV)] [facility] Future Scheduled Test 2013-12-15 00:00:00 PNEUMOCOCCAL VACCINE 0-64 YRS (2 - PCV) [code = PNEUMOCOCCAL VACCINE 0-64 YRS (2 - PCV)] [facility] Future Scheduled Test 2013-12-15 00:00:00 Pneumococcal Vaccine: 0-64 Years (2 - PCV) [code = Pneumococcal Vaccine: 0-64 Years (2 - PCV)] [facility] Future Scheduled Test 2013-12-15 00:00:00 Pneumococcal Vaccine: 0-64 Years (2 - PCV) [code = Pneumococcal Vaccine: 0-64 Years (2 - PCV)] [facility] Future Scheduled Test 1993-01-14 00:00:00 Screening for malignant neoplasm of cervix (procedure) [code = [id number]] [facility] Future Scheduled Test 1993-01-14 00:00:00 Screening for malignant neoplasm of cervix (procedure) [code = [id number]] [facility] Future Scheduled Test 1993-01-14 00:00:00 Screening for malignant neoplasm of cervix (procedure) [code = 144056083] [facility] Future Scheduled Test 1993-01-14 00:00:00 Screening for malignant neoplasm of cervix (procedure) [code = [id number]] [facility] Future Scheduled Test 1993-01-14 00:00:00 Screening for malignant neoplasm of cervix (procedure) [code = 712698663] [facility] Future Scheduled Test 1993-01-14 00:00:00 Screening for malignant neoplasm of cervix (procedure) [code = 579029725] [facility] Future Scheduled Test 1993-01-14 00:00:00 Screening for malignant neoplasm of cervix (procedure) [code = [id number]] [facility] Future Scheduled Test 1993-01-14 00:00:00 Screening for malignant neoplasm of cervix (procedure) [code = [id number]] [facility] Future Scheduled Test 1993-01-14 00:00:00 Screening for malignant neoplasm of cervix (procedure) [code = 953476955] [facility] Future Scheduled Test 1993-01-14 00:00:00 Screening for malignant neoplasm of cervix (procedure) [code = [id number]] [facility] Future Scheduled Test 1993-01-14 00:00:00 Screening for malignant neoplasm of cervix (procedure) [code = [id number]] [facility] Future Scheduled Test 1993-01-14 00:00:00 Screening for malignant neoplasm of cervix (procedure) [code = [id number]] [facility] Future Scheduled Test 1993-01-14 00:00:00 Screening for malignant neoplasm of cervix (procedure) [code = [id number]] [facility] Future Scheduled Test 1993-01-14 00:00:00 Screening for malignant neoplasm of cervix (procedure) [code = 554033413] [facility] Future Scheduled Test 1993-01-14 00:00:00 Screening for malignant neoplasm of cervix (procedure) [code = [id number]] [facility] Future Scheduled Test 1993-01-14 00:00:00 Screening for malignant neoplasm of cervix (procedure) [code = 435291931] [facility] Future Scheduled Test 1993-01-14 00:00:00 Screening for malignant neoplasm of cervix (procedure) [code = [id number]] [facility] Future Scheduled Test 1993-01-14 00:00:00 Screening for malignant neoplasm of cervix (procedure) [code = 276972483] [facility] Future Scheduled Test 1993-01-14 00:00:00 Screening for malignant neoplasm of cervix (procedure) [code = [id number]] [facility] Future Scheduled Test 1993-01-14 00:00:00 Screening for malignant neoplasm of cervix (procedure) [code = 716885704] [facility] Future Scheduled Test 1993-01-14 00:00:00 Screening for malignant neoplasm of cervix (procedure) [code = 399743784] [facility] Future Scheduled Test 1993-01-14 00:00:00 Screening for malignant neoplasm of cervix (procedure) [code = 585404364] [facility] Future Scheduled Test 1993-01-14 00:00:00 Screening for malignant neoplasm of cervix (procedure) [code = [id number]] [facility] Future Scheduled Test 1993-01-14 00:00:00 Screening for malignant neoplasm of cervix (procedure) [code = 802657359] [facility] Future Scheduled Test 1993-01-14 00:00:00 Screening for malignant neoplasm of cervix (procedure) [code = [id number]] [facility] Future Scheduled Test 1993-01-14 00:00:00 Screening for malignant neoplasm of cervix (procedure) [code = 769404882] [facility] Future Scheduled Test 1993-01-14 00:00:00 Screening for malignant neoplasm of cervix (procedure) [code = 954213462] [facility] Future Scheduled Test 1993-01-14 00:00:00 Screening for malignant neoplasm of cervix (procedure) [code = [id number]] [facility] Future Scheduled Test 1993-01-14 00:00:00 Screening for malignant neoplasm of cervix (procedure) [code = 678509603] [facility] Future Scheduled Test 1993-01-14 00:00:00 Screening for malignant neoplasm of cervix (procedure) [code = [id number]] [facility] Future Scheduled Test 1991-01-14 00:00:00 DTAP/TDAP/TD VACCINES (1 - Tdap) [code = DTAP/TDAP/TD VACCINES (1 - Tdap)] [facility] Future Scheduled Test 1991-01-14 00:00:00 DTAP/TDAP/TD VACCINES (1 - Tdap) [code = DTAP/TDAP/TD VACCINES (1 - Tdap)] [facility] Future Scheduled Test 1991-01-14 00:00:00 DTAP/TDAP/TD VACCINES (1 - Tdap) [code = DTAP/TDAP/TD VACCINES (1 - Tdap)] [facility] Future Scheduled Test 1991-01-14 00:00:00 DTAP/TDAP/TD VACCINES (1 - Tdap) [code = DTAP/TDAP/TD VACCINES (1 - Tdap)] [facility] Future Scheduled Test 1991-01-14 00:00:00 DTAP/TDAP/TD VACCINES (1 - Tdap) [code = DTAP/TDAP/TD VACCINES (1 - Tdap)] [facility] Future Scheduled Test 1991-01-14 00:00:00 DTAP/TDAP/TD VACCINES (1 - Tdap) [code = DTAP/TDAP/TD VACCINES (1 - Tdap)] [facility] Future Scheduled Test 1991-01-14 00:00:00 DTAP/TDAP/TD VACCINES (1 - Tdap) [code = DTAP/TDAP/TD VACCINES (1 - Tdap)] [facility] Future Scheduled Test 1991-01-14 00:00:00 DTAP/TDAP/TD VACCINES (1 - Tdap) [code = DTAP/TDAP/TD VACCINES (1 - Tdap)] [facility] Future Scheduled Test 1991-01-14 00:00:00 DTAP/TDAP/TD VACCINES (1 - Tdap) [code = DTAP/TDAP/TD VACCINES (1 - Tdap)] [facility] Future Scheduled Test 1991-01-14 00:00:00 DTAP/TDAP/TD VACCINES (1 - Tdap) [code = DTAP/TDAP/TD VACCINES (1 - Tdap)] [facility] Future Scheduled Test 1991-01-14 00:00:00 DTAP/TDAP/TD VACCINES (1 - Tdap) [code = DTAP/TDAP/TD VACCINES (1 - Tdap)] [facility] Future Scheduled Test 1991-01-14 00:00:00 DTAP/TDAP/TD VACCINES (1 - Tdap) [code = DTAP/TDAP/TD VACCINES (1 - Tdap)] [facility] Future Scheduled Test 1991-01-14 00:00:00 DTAP/TDAP/TD VACCINES (1 - Tdap) [code = DTAP/TDAP/TD VACCINES (1 - Tdap)] [facility] Future Scheduled Test 1991-01-14 00:00:00 DTAP/TDAP/TD VACCINES (1 - Tdap) [code = DTAP/TDAP/TD VACCINES (1 - Tdap)] [facility] Future Scheduled Test 1991-01-14 00:00:00 DTAP/TDAP/TD VACCINES (1 - Tdap) [code = DTAP/TDAP/TD VACCINES (1 - Tdap)] [facility] Future Scheduled Test 1991-01-14 00:00:00 DTAP/TDAP/TD VACCINES (1 - Tdap) [code = DTAP/TDAP/TD VACCINES (1 - Tdap)] [facility] Future Scheduled Test 1991-01-14 00:00:00 DTAP/TDAP/TD VACCINES (1 - Tdap) [code = DTAP/TDAP/TD VACCINES (1 - Tdap)] [facility] Future Scheduled Test 1991-01-14 00:00:00 DTAP/TDAP/TD VACCINES (1 - Tdap) [code = DTAP/TDAP/TD VACCINES (1 - Tdap)] [facility] Future Scheduled Test 1991-01-14 00:00:00 DTAP/TDAP/TD VACCINES (1 - Tdap) [code = DTAP/TDAP/TD VACCINES (1 - Tdap)] [facility] Future Scheduled Test 1991-01-14 00:00:00 DTAP/TDAP/TD VACCINES (1 - Tdap) [code = DTAP/TDAP/TD VACCINES (1 - Tdap)] [facility] Future Scheduled Test 1991-01-14 00:00:00 DTAP/TDAP/TD VACCINES (1 - Tdap) [code = DTAP/TDAP/TD VACCINES (1 - Tdap)] [facility] Future Scheduled Test 1991-01-14 00:00:00 DTAP/TDAP/TD VACCINES (1 - Tdap) [code = DTAP/TDAP/TD VACCINES (1 - Tdap)] [facility] Future Scheduled Test 1991-01-14 00:00:00 DTAP/TDAP/TD VACCINES (1 - Tdap) [code = DTAP/TDAP/TD VACCINES (1 - Tdap)] [facility] Future Scheduled Test 1991-01-14 00:00:00 DTAP/TDAP/TD VACCINES (1 - Tdap) [code = DTAP/TDAP/TD VACCINES (1 - Tdap)] [facility] Future Scheduled Test 1991-01-14 00:00:00 DTAP/TDAP/TD VACCINES (1 - Tdap) [code = DTAP/TDAP/TD VACCINES (1 - Tdap)] [facility] Future Scheduled Test 1991-01-14 00:00:00 DTAP/TDAP/TD VACCINES (1 - Tdap) [code = DTAP/TDAP/TD VACCINES (1 - Tdap)] [facility] Future Scheduled Test 1991-01-14 00:00:00 DTAP/TDAP/TD VACCINES (1 - Tdap) [code = DTAP/TDAP/TD VACCINES (1 - Tdap)] [facility] Future Scheduled Test 1991-01-14 00:00:00 DTAP/TDAP/TD VACCINES (1 - Tdap) [code = DTAP/TDAP/TD VACCINES (1 - Tdap)] [facility] Future Scheduled Test 1991-01-14 00:00:00 DTAP/TDAP/TD VACCINES (1 - Tdap) [code = DTAP/TDAP/TD VACCINES (1 - Tdap)] [facility] Future Scheduled Test 1991-01-14 00:00:00 DTAP/TDAP/TD VACCINES (1 - Tdap) [code = DTAP/TDAP/TD VACCINES (1 - Tdap)] [facility] Future Scheduled Test 1990-01-14 00:00:00 HEPATITIS C SCREENING [code = HEPATITIS C SCREENING] [facility] Future Scheduled Test 1990-01-14 00:00:00 HEPATITIS C SCREENING [code = HEPATITIS C SCREENING] [facility] Future Scheduled Test 1990-01-14 00:00:00 HEPATITIS C SCREENING [code = HEPATITIS C SCREENING] [facility] Future Scheduled Test 1990-01-14 00:00:00 HEPATITIS C SCREENING [code = HEPATITIS C SCREENING] [facility] Future Scheduled Test 1990-01-14 00:00:00 HEPATITIS C SCREENING [code = HEPATITIS C SCREENING] [facility] Future Scheduled Test 1990-01-14 00:00:00 HEPATITIS C SCREENING [code = HEPATITIS C SCREENING] [facility] Future Scheduled Test 1990-01-14 00:00:00 HEPATITIS C SCREENING [code = HEPATITIS C SCREENING] [facility] Future Scheduled Test 1990-01-14 00:00:00 HEPATITIS C SCREENING [code = HEPATITIS C SCREENING] [facility] Future Scheduled Test 1990-01-14 00:00:00 HEPATITIS C SCREENING [code = HEPATITIS C SCREENING] [facility] Future Scheduled Test 1990-01-14 00:00:00 HEPATITIS C SCREENING [code = HEPATITIS C SCREENING] [facility] Future Scheduled Test 1990-01-14 00:00:00 HEPATITIS C SCREENING [code = HEPATITIS C SCREENING] [facility] Future Scheduled Test 1990-01-14 00:00:00 HEPATITIS C SCREENING [code = HEPATITIS C SCREENING] [facility] Future Scheduled Test 1990-01-14 00:00:00 HEPATITIS C SCREENING [code = HEPATITIS C SCREENING] [facility] Future Scheduled Test 1990-01-14 00:00:00 HEPATITIS C SCREENING [code = HEPATITIS C SCREENING] [facility] Future Scheduled Test 1990-01-14 00:00:00 HEPATITIS C SCREENING [code = HEPATITIS C SCREENING] [facility] Future Scheduled Test 1990-01-14 00:00:00 HEPATITIS C SCREENING [code = HEPATITIS C SCREENING] [facility] Future Scheduled Test 1990-01-14 00:00:00 HEPATITIS C SCREENING [code = HEPATITIS C SCREENING] [facility] Future Scheduled Test 1990-01-14 00:00:00 HEPATITIS C SCREENING [code = HEPATITIS C SCREENING] [facility] Future Scheduled Test 1990-01-14 00:00:00 HEPATITIS C SCREENING [code = HEPATITIS C SCREENING] [facility] Future Scheduled Test 1990-01-14 00:00:00 HEPATITIS C SCREENING [code = HEPATITIS C SCREENING] [facility] Future Scheduled Test 1990-01-14 00:00:00 HEPATITIS C SCREENING [code = HEPATITIS C SCREENING] [facility] Future Scheduled Test 1990-01-14 00:00:00 HEPATITIS C SCREENING [code = HEPATITIS C SCREENING] [facility] Future Scheduled Test 1990-01-14 00:00:00 HEPATITIS C SCREENING [code = HEPATITIS C SCREENING] [facility] Future Scheduled Test 1990-01-14 00:00:00 HEPATITIS C SCREENING [code = HEPATITIS C SCREENING] [facility] Future Scheduled Test 1990-01-14 00:00:00 HEPATITIS C SCREENING [code = HEPATITIS C SCREENING] [facility] Future Scheduled Test 1990-01-14 00:00:00 HEPATITIS C SCREENING [code = HEPATITIS C SCREENING] [facility] Future Scheduled Test 1990-01-14 00:00:00 HEPATITIS C SCREENING [code = HEPATITIS C SCREENING] [facility] Future Scheduled Test 1990-01-14 00:00:00 HEPATITIS C SCREENING [code = HEPATITIS C SCREENING] [facility] Future Scheduled Test 1990-01-14 00:00:00 HEPATITIS C SCREENING [code = HEPATITIS C SCREENING] [facility] Future Scheduled Test 1990-01-14 00:00:00 HEPATITIS C SCREENING [code = HEPATITIS C SCREENING] [facility] Future Scheduled Test 1987-01-14 00:00:00 Human immunodeficiency virus screening (procedure) [code = [id number]] [facility] Future Scheduled Test 1987-01-14 00:00:00 Human immunodeficiency virus screening (procedure) [code = 596968734] [facility] Future Scheduled Test 1984 00:00:00 Tobacco Cessation Counseling and Screening (12+) [code = Tobacco Cessation Counseling and Screening (12+)] [facility] Future Scheduled Test 1984 00:00:00 Tobacco Cessation Counseling and Screening (12+) [code = Tobacco Cessation Counseling and Screening (12+)] [facility] Future Scheduled Test 1984 00:00:00 Tobacco Cessation Counseling and Screening (12+) [code = Tobacco Cessation Counseling and Screening (12+)] [facility] Future Scheduled Test 1984 00:00:00 Tobacco Cessation Counseling and Screening (12+) [code = Tobacco Cessation Counseling and Screening (12+)] [facility] Future Scheduled Test 1984 00:00:00 Tobacco Cessation Counseling and Screening (12+) [code = Tobacco Cessation Counseling and Screening (12+)] [facility] Future Scheduled Test 1984 00:00:00 Tobacco Cessation Counseling and Screening (12+) [code = Tobacco Cessation Counseling and Screening (12+)] [facility] Future Scheduled Test 1984 00:00:00 Tobacco Cessation Counseling and Screening (12+) [code = Tobacco Cessation Counseling and Screening (12+)] [facility] Future Scheduled Test 1984 00:00:00 Tobacco Cessation Counseling and Screening (12+) [code = Tobacco Cessation Counseling and Screening (12+)] [facility] Future Scheduled Test 1984 00:00:00 Tobacco Cessation Counseling and Screening (12+) [code = Tobacco Cessation Counseling and Screening (12+)] [facility] Scheduled Test 1984 00:00:00 Tobacco Cessation Counseling and Screening (12+) [code = Tobacco Cessation Counseling and Screening (12+)] [facility] Scheduled Test 1984 00:00:00 Tobacco Cessation Counseling and Screening (12+) [code = Tobacco Cessation Counseling and Screening (12+)] [facility] Scheduled Test 1984 00:00:00 Tobacco Cessation Counseling and Screening (12+) [code = Tobacco Cessation Counseling and Screening (12+)] [facility] Scheduled Test 1984 00:00:00 Tobacco Cessation Counseling and Screening (12+) [code = Tobacco Cessation Counseling and Screening (12+)] [facility] Scheduled Test 1984 00:00:00 Tobacco Cessation Counseling and Screening (12+) [code = Tobacco Cessation Counseling and Screening (12+)] [facility] Future Scheduled Test 1984 00:00:00 Tobacco Cessation Counseling and Screening (12+) [code = Tobacco Cessation Counseling and Screening (12+)] [facility] Future Scheduled Test 1984 00:00:00 Tobacco Cessation Counseling and Screening (12+) [code = Tobacco Cessation Counseling and Screening (12+)] [facility] Future Scheduled Test 1984 00:00:00 Tobacco Cessation Counseling and Screening (12+) [code = Tobacco Cessation Counseling and Screening (12+)] [facility] Future Scheduled Test 1984 00:00:00 Tobacco Cessation Counseling and Screening (12+) [code = Tobacco Cessation Counseling and Screening (12+)] [facility] Future Scheduled Test 1984 00:00:00 Tobacco Cessation Counseling and Screening (12+) [code = Tobacco Cessation Counseling and Screening (12+)] [facility] Future Scheduled Test 1984 00:00:00 Tobacco Cessation Counseling and Screening (12+) [code = Tobacco Cessation Counseling and Screening (12+)] [facility] Future Scheduled Test 1984 00:00:00 Tobacco Cessation Counseling and Screening (12+) [code = Tobacco Cessation Counseling and Screening (12+)] [facility] Future Scheduled Test 1984 00:00:00 Tobacco Cessation Counseling and Screening (12+) [code = Tobacco Cessation Counseling and Screening (12+)] [facility] Future Scheduled Test 1984 00:00:00 Tobacco Cessation Counseling and Screening (12+) [code = Tobacco Cessation Counseling and Screening (12+)] [facility] Future Scheduled Test 1972 00:00:00 Screening for malignant neoplasm of breast (procedure) [code = [id number]] [facility] Future Scheduled Test 1972 00:00:00 CT Colonography (combo) [code = CT Colonography (combo)] [facility] Future Scheduled Test 1972 00:00:00 Screening for malignant neoplasm of colon (procedure) [code = 247924434] [facility] Future Scheduled Test 1972 00:00:00 Screening for malignant neoplasm of colon (procedure) [code = 289055090] [facility] Future Scheduled Test 1972 00:00:00 Screening for malignant neoplasm of colon (procedure) [code = 729683346] [facility] Future Scheduled Test 1972 00:00:00 Screening for malignant neoplasm of colon (procedure) [code = 784529082] [facility] Future Scheduled Test 1972 00:00:00 Sigmoidoscopy [code = Sigmoidoscopy] [facility] Future Scheduled Test 1972 00:00:00 Screening for malignant neoplasm of breast (procedure) [code = 182263323] [facility] Future Scheduled Test 1972 00:00:00 CT Colonography (combo) [code = CT Colonography (combo)] [facility] Future Scheduled Test 1972 00:00:00 Screening for malignant neoplasm of colon (procedure) [code = 418160812] [facility] Future Scheduled Test 1972 00:00:00 Screening for malignant neoplasm of colon (procedure) [code = 244196522] [facility] Future Scheduled Test 1972 00:00:00 Screening for malignant neoplasm of colon (procedure) [code = 961164650] [facility] Future Scheduled Test 1972 00:00:00 Screening for malignant neoplasm of colon (procedure) [code = 193607137] [facility] Future Scheduled Test 1972 00:00:00 Sigmoidoscopy [code = Sigmoidoscopy] [facility] Future Scheduled Test 1972 00:00:00 Screening for malignant neoplasm of breast (procedure) [code = 389154378] [facility] Future Scheduled Test 1972 00:00:00 CT Colonography (combo) [code = CT Colonography (combo)] [facility] Future Scheduled Test 1972 00:00:00 Screening for malignant neoplasm of colon (procedure) [code = 701254861] [facility] Future Scheduled Test 1972 00:00:00 Screening for malignant neoplasm of colon (procedure) [code = 537019639] [facility] Future Scheduled Test 1972 00:00:00 Screening for malignant neoplasm of colon (procedure) [code = 160352773] [facility] Future Scheduled Test 1972 00:00:00 Screening for malignant neoplasm of colon (procedure) [code = 700663777] [facility] Future Scheduled Test 1972 00:00:00 Sigmoidoscopy [code = Sigmoidoscopy] [facility] Future Scheduled Test 1972 00:00:00 Screening for malignant neoplasm of breast (procedure) [code = 704832606] [facility] Future Scheduled Test 1972 00:00:00 CT Colonography (combo) [code = CT Colonography (combo)] [facility] Future Scheduled Test 1972 00:00:00 Screening for malignant neoplasm of colon (procedure) [code = 681700619] [facility] Future Scheduled Test 1972 00:00:00 Screening for malignant neoplasm of colon (procedure) [code = 778051370] [facility] Future Scheduled Test 1972 00:00:00 Screening for malignant neoplasm of colon (procedure) [code = 522949715] [facility] Future Scheduled Test 1972 00:00:00 Screening for malignant neoplasm of colon (procedure) [code = 855890205] [facility] Future Scheduled Test 1972 00:00:00 Sigmoidoscopy [code = Sigmoidoscopy] [facility] Future Scheduled Test 1972 00:00:00 Screening for malignant neoplasm of breast (procedure) [code = 781779874] [facility] Future Scheduled Test 1972 00:00:00 CT Colonography (combo) [code = CT Colonography (combo)] [facility] Future Scheduled Test 1972 00:00:00 Screening for malignant neoplasm of colon (procedure) [code = 818704670] [facility] Future Scheduled Test 1972 00:00:00 Screening for malignant neoplasm of colon (procedure) [code = 071710551] [facility] Future Scheduled Test 1972 00:00:00 Screening for malignant neoplasm of colon (procedure) [code = 242121280] [facility] Future Scheduled Test 1972 00:00:00 Screening for malignant neoplasm of colon (procedure) [code = 081815969] [facility] Future Scheduled Test 1972 00:00:00 Sigmoidoscopy [code = Sigmoidoscopy] [facility] Future Scheduled Test 1972 00:00:00 Screening for malignant neoplasm of breast (procedure) [code = 375931897] [facility] Future Scheduled Test 1972 00:00:00 CT Colonography (combo) [code = CT Colonography (combo)] [facility] Future Scheduled Test 1972 00:00:00 Screening for malignant neoplasm of colon (procedure) [code = 090779068] [facility] Future Scheduled Test 1972 00:00:00 Screening for malignant neoplasm of colon (procedure) [code = 155379559] [facility] Future Scheduled Test 1972 00:00:00 Screening for malignant neoplasm of colon (procedure) [code = 694939751] [facility] Future Scheduled Test 1972 00:00:00 Screening for malignant neoplasm of colon (procedure) [code = 790941426] [facility] Future Scheduled Test 1972 00:00:00 Sigmoidoscopy [code = Sigmoidoscopy] [facility] Future Scheduled Test 1972 00:00:00 Screening for malignant neoplasm of breast (procedure) [code = 287607156] [facility] Future Scheduled Test 1972 00:00:00 CT Colonography (combo) [code = CT Colonography (combo)] [facility] Future Scheduled Test 1972 00:00:00 Screening for malignant neoplasm of colon (procedure) [code = 640004216] [facility] Future Scheduled Test 1972 00:00:00 Screening for malignant neoplasm of colon (procedure) [code = 151803290] [facility] Future Scheduled Test 1972 00:00:00 Screening for malignant neoplasm of colon (procedure) [code = 519268133] [facility] Future Scheduled Test 1972 00:00:00 Screening for malignant neoplasm of colon (procedure) [code = 434989945] [facility] Future Scheduled Test 1972 00:00:00 Sigmoidoscopy [code = Sigmoidoscopy] [facility] Future Scheduled Test 1972 00:00:00 Screening for malignant neoplasm of breast (procedure) [code = 687335039] [facility] Future Scheduled Test 1972 00:00:00 CT Colonography (combo) [code = CT Colonography (combo)] [facility] Future Scheduled Test 1972 00:00:00 Screening for malignant neoplasm of colon (procedure) [code = 753775163] [facility] Future Scheduled Test 1972 00:00:00 Screening for malignant neoplasm of colon (procedure) [code = 428215303] [facility] Future Scheduled Test 1972 00:00:00 Screening for malignant neoplasm of colon (procedure) [code = 528620533] [facility] Future Scheduled Test 1972 00:00:00 Screening for malignant neoplasm of colon (procedure) [code = 608089331] [facility] Future Scheduled Test 1972 00:00:00 Sigmoidoscopy [code = Sigmoidoscopy] [facility] Future Scheduled Test 1972 00:00:00 Screening for malignant neoplasm of breast (procedure) [code = 696373146] [facility] Future Scheduled Test 1972 00:00:00 CT Colonography (combo) [code = CT Colonography (combo)] [facility] Future Scheduled Test 1972 00:00:00 Screening for malignant neoplasm of colon (procedure) [code = 482519614] [facility] Future Scheduled Test 1972 00:00:00 Screening for malignant neoplasm of colon (procedure) [code = 367330788] [facility] Future Scheduled Test 1972 00:00:00 Screening for malignant neoplasm of colon (procedure) [code = 022478234] [facility] Future Scheduled Test 1972 00:00:00 Screening for malignant neoplasm of colon (procedure) [code = 196118408] [facility] Future Scheduled Test 1972 00:00:00 Sigmoidoscopy [code = Sigmoidoscopy] [facility] Future Scheduled Test 1972 00:00:00 Screening for malignant neoplasm of breast (procedure) [code = 777861554] [facility] Future Scheduled Test 1972 00:00:00 CT Colonography (combo) [code = CT Colonography (combo)] [facility] Future Scheduled Test 1972 00:00:00 Screening for malignant neoplasm of colon (procedure) [code = 342637365] [facility] Future Scheduled Test 1972 00:00:00 Screening for malignant neoplasm of colon (procedure) [code = 667242998] [facility] Future Scheduled Test 1972 00:00:00 Screening for malignant neoplasm of colon (procedure) [code = 463391606] [facility] Future Scheduled Test 1972 00:00:00 Screening for malignant neoplasm of colon (procedure) [code = 595048944] [facility] Future Scheduled Test 1972 00:00:00 Sigmoidoscopy [code = Sigmoidoscopy] [facility] Future Scheduled Test 1972 00:00:00 Screening for malignant neoplasm of breast (procedure) [code = 440072298] [facility] Future Scheduled Test 1972 00:00:00 CT Colonography (combo) [code = CT Colonography (combo)] [facility] Future Scheduled Test 1972 00:00:00 Screening for malignant neoplasm of colon (procedure) [code = 143894539] [facility] Future Scheduled Test 1972 00:00:00 Screening for malignant neoplasm of colon (procedure) [code = 053421525] [facility] Future Scheduled Test 1972 00:00:00 Screening for malignant neoplasm of colon (procedure) [code = 526372667] [facility] Future Scheduled Test 1972 00:00:00 Screening for malignant neoplasm of colon (procedure) [code = 798086478] [facility] Future Scheduled Test 1972 00:00:00 Sigmoidoscopy [code = Sigmoidoscopy] [facility] Future Scheduled Test 1972 00:00:00 Screening for malignant neoplasm of breast (procedure) [code = 468692857] [facility] Future Scheduled Test 1972 00:00:00 CT Colonography (combo) [code = CT Colonography (combo)] [facility] Future Scheduled Test 1972 00:00:00 Screening for malignant neoplasm of colon (procedure) [code = 147720642] [facility] Future Scheduled Test 1972 00:00:00 Screening for malignant neoplasm of colon (procedure) [code = 367879329] [facility] Future Scheduled Test 1972 00:00:00 Screening for malignant neoplasm of colon (procedure) [code = 953791638] [facility] Future Scheduled Test 1972 00:00:00 Screening for malignant neoplasm of colon (procedure) [code = 085783001] [facility] Future Scheduled Test 1972 00:00:00 Sigmoidoscopy [code = Sigmoidoscopy] [facility] Future Scheduled Test 1972 00:00:00 Screening for malignant neoplasm of breast (procedure) [code = 792604989] [facility] Future Scheduled Test 1972 00:00:00 CT Colonography (combo) [code = CT Colonography (combo)] [facility] Future Scheduled Test 1972 00:00:00 Screening for malignant neoplasm of colon (procedure) [code = 437848794] [facility] Future Scheduled Test 1972 00:00:00 Screening for malignant neoplasm of colon (procedure) [code = 611465236] [facility] Future Scheduled Test 1972 00:00:00 Screening for malignant neoplasm of colon (procedure) [code = 702721269] [facility] Future Scheduled Test 1972 00:00:00 Screening for malignant neoplasm of colon (procedure) [code = 178158139] [facility] Future Scheduled Test 1972 00:00:00 Sigmoidoscopy [code = Sigmoidoscopy] [facility] Future Scheduled Test 1972 00:00:00 Screening for malignant neoplasm of breast (procedure) [code = 612216931] [facility] Future Scheduled Test 1972 00:00:00 CT Colonography (combo) [code = CT Colonography (combo)] [facility] Future Scheduled Test 1972 00:00:00 Screening for malignant neoplasm of colon (procedure) [code = 526133725] [facility] Future Scheduled Test 1972 00:00:00 Screening for malignant neoplasm of colon (procedure) [code = 986440977] [facility] Future Scheduled Test 1972 00:00:00 Screening for malignant neoplasm of colon (procedure) [code = 946019841] [facility] Future Scheduled Test 1972 00:00:00 Screening for malignant neoplasm of colon (procedure) [code = 212744690] [facility] Future Scheduled Test 1972 00:00:00 Sigmoidoscopy [code = Sigmoidoscopy] [facility] Future Scheduled Test 1972 00:00:00 Screening for malignant neoplasm of breast (procedure) [code = 244982993] [facility] Future Scheduled Test 1972 00:00:00 CT Colonography (combo) [code = CT Colonography (combo)] [facility] Future Scheduled Test 1972 00:00:00 Screening for malignant neoplasm of colon (procedure) [code = 339074329] [facility] Future Scheduled Test 1972 00:00:00 Screening for malignant neoplasm of colon (procedure) [code = 872867554] [facility] Future Scheduled Test 1972 00:00:00 Screening for malignant neoplasm of colon (procedure) [code = 558056922] [facility] Future Scheduled Test 1972 00:00:00 Screening for malignant neoplasm of colon (procedure) [code = 520017250] [facility] Future Scheduled Test 1972 00:00:00 Sigmoidoscopy [code = Sigmoidoscopy] [facility] Future Scheduled Test 1972 00:00:00 Screening for malignant neoplasm of breast (procedure) [code = 056912729] [facility] Future Scheduled Test 1972 00:00:00 CT Colonography (combo) [code = CT Colonography (combo)] [facility] Future Scheduled Test 1972 00:00:00 Screening for malignant neoplasm of colon (procedure) [code = 579834280] [facility] Future Scheduled Test 1972 00:00:00 Screening for malignant neoplasm of colon (procedure) [code = 124834376] [facility] Future Scheduled Test 1972 00:00:00 Screening for malignant neoplasm of colon (procedure) [code = 547865284] [facility] Future Scheduled Test 1972 00:00:00 Screening for malignant neoplasm of colon (procedure) [code = 501986199] [facility] Future Scheduled Test 1972 00:00:00 Sigmoidoscopy [code = Sigmoidoscopy] [facility] Future Scheduled Test 1972 00:00:00 Screening for malignant neoplasm of breast (procedure) [code = 863544781] [facility] Future Scheduled Test 1972 00:00:00 CT Colonography (combo) [code = CT Colonography (combo)] [facility] Future Scheduled Test 1972 00:00:00 Screening for malignant neoplasm of colon (procedure) [code = 078103817] [facility] Future Scheduled Test 1972 00:00:00 Screening for malignant neoplasm of colon (procedure) [code = 210762054] [facility] Future Scheduled Test 1972 00:00:00 Screening for malignant neoplasm of colon (procedure) [code = 734543499] [facility] Future Scheduled Test 1972 00:00:00 Screening for malignant neoplasm of colon (procedure) [code = 911537044] [facility] Future Scheduled Test 1972 00:00:00 Sigmoidoscopy [code = Sigmoidoscopy] [facility] Future Scheduled Test 1972 00:00:00 Screening for malignant neoplasm of breast (procedure) [code = 880063201] [facility] Future Scheduled Test 1972 00:00:00 CT Colonography (combo) [code = CT Colonography (combo)] [facility] Future Scheduled Test 1972 00:00:00 Screening for malignant neoplasm of colon (procedure) [code = 753810301] [facility] Future Scheduled Test 1972 00:00:00 Screening for malignant neoplasm of colon (procedure) [code = 732098470] [facility] Future Scheduled Test 1972 00:00:00 Screening for malignant neoplasm of colon (procedure) [code = 998956868] [facility] Future Scheduled Test 1972 00:00:00 Screening for malignant neoplasm of colon (procedure) [code = 853020095] [facility] Future Scheduled Test 1972 00:00:00 Sigmoidoscopy [code = Sigmoidoscopy] [facility] Future Scheduled Test 1972 00:00:00 Screening for malignant neoplasm of breast (procedure) [code = 258966670] [facility] Future Scheduled Test 1972 00:00:00 CT Colonography (combo) [code = CT Colonography (combo)] [facility] Future Scheduled Test 1972 00:00:00 Screening for malignant neoplasm of colon (procedure) [code = 518104680] [facility] Future Scheduled Test 1972 00:00:00 Screening for malignant neoplasm of colon (procedure) [code = 671365471] [facility] Future Scheduled Test 1972 00:00:00 Screening for malignant neoplasm of colon (procedure) [code = 128349345] [facility] Future Scheduled Test 1972 00:00:00 Screening for malignant neoplasm of colon (procedure) [code = 612867266] [facility] Future Scheduled Test 1972 00:00:00 Sigmoidoscopy [code = Sigmoidoscopy] [facility] Future Scheduled Test 1972 00:00:00 Screening for malignant neoplasm of breast (procedure) [code = 950233960] [facility] Future Scheduled Test 1972 00:00:00 CT Colonography (combo) [code = CT Colonography (combo)] [facility] Future Scheduled Test 1972 00:00:00 Screening for malignant neoplasm of colon (procedure) [code = 833443013] [facility] Future Scheduled Test 1972 00:00:00 Screening for malignant neoplasm of colon (procedure) [code = 283402237] [facility] Future Scheduled Test 1972 00:00:00 Screening for malignant neoplasm of colon (procedure) [code = 553437628] [facility] Future Scheduled Test 1972 00:00:00 Screening for malignant neoplasm of colon (procedure) [code = 872796670] [facility] Future Scheduled Test 1972 00:00:00 Sigmoidoscopy [code = Sigmoidoscopy] [facility] Future Scheduled Test 1972 00:00:00 Screening for malignant neoplasm of breast (procedure) [code = 950235958] [facility] Future Scheduled Test 1972 00:00:00 CT Colonography (combo) [code = CT Colonography (combo)] [facility] Future Scheduled Test 1972 00:00:00 Screening for malignant neoplasm of colon (procedure) [code = 350123007] [facility] Future Scheduled Test 1972 00:00:00 Screening for malignant neoplasm of colon (procedure) [code = 911453756] [facility] Future Scheduled Test 1972 00:00:00 Screening for malignant neoplasm of colon (procedure) [code = 218798540] [facility] Future Scheduled Test 1972 00:00:00 Screening for malignant neoplasm of colon (procedure) [code = 818815584] [facility] Future Scheduled Test 1972 00:00:00 Sigmoidoscopy [code = Sigmoidoscopy] [facility] Future Scheduled Test 1972 00:00:00 Screening for malignant neoplasm of breast (procedure) [code = 302982621] [facility] Future Scheduled Test 1972 00:00:00 CT Colonography (combo) [code = CT Colonography (combo)] [facility] Future Scheduled Test 1972 00:00:00 Screening for malignant neoplasm of colon (procedure) [code = 134172621] [facility] Future Scheduled Test 1972 00:00:00 Screening for malignant neoplasm of colon (procedure) [code = 503241103] [facility] Future Scheduled Test 1972 00:00:00 Screening for malignant neoplasm of colon (procedure) [code = 720134382] [facility] Future Scheduled Test 1972 00:00:00 Screening for malignant neoplasm of colon (procedure) [code = 676845405] [facility] Future Scheduled Test 1972 00:00:00 Sigmoidoscopy [code = Sigmoidoscopy] [facility] Future Scheduled Test 1972 00:00:00 Screening for malignant neoplasm of breast (procedure) [code = 211922186] [facility] Future Scheduled Test 1972 00:00:00 CT Colonography (combo) [code = CT Colonography (combo)] [facility] Future Scheduled Test 1972 00:00:00 Screening for malignant neoplasm of colon (procedure) [code = 443763462] [facility] Future Scheduled Test 1972 00:00:00 Screening for malignant neoplasm of colon (procedure) [code = 366759086] [facility] Future Scheduled Test 1972 00:00:00 Screening for malignant neoplasm of colon (procedure) [code = 240692046] [facility] Future Scheduled Test 1972 00:00:00 Screening for malignant neoplasm of colon (procedure) [code = 649602351] [facility] Future Scheduled Test 1972 00:00:00 Sigmoidoscopy [code = Sigmoidoscopy] [facility] Future Scheduled Test 1972 00:00:00 Screening for malignant neoplasm of breast (procedure) [code = 186801255] [facility] Future Scheduled Test 1972 00:00:00 CT Colonography (combo) [code = CT Colonography (combo)] [facility] Future Scheduled Test 1972 00:00:00 Screening for malignant neoplasm of colon (procedure) [code = 178623125] [facility] Future Scheduled Test 1972 00:00:00 Screening for malignant neoplasm of colon (procedure) [code = 084102312] [facility] Future Scheduled Test 1972 00:00:00 Screening for malignant neoplasm of colon (procedure) [code = 281285532] [facility] Future Scheduled Test 1972 00:00:00 Screening for malignant neoplasm of colon (procedure) [code = 593974463] [facility] Future Scheduled Test 1972 00:00:00 Sigmoidoscopy [code = Sigmoidoscopy] [facility] Future Scheduled Test 1972 00:00:00 Screening for malignant neoplasm of breast (procedure) [code = 978865025] [facility] Future Scheduled Test 1972 00:00:00 CT Colonography (combo) [code = CT Colonography (combo)] [facility] Future Scheduled Test 1972 00:00:00 Screening for malignant neoplasm of colon (procedure) [code = 967627531] [facility] Future Scheduled Test 1972 00:00:00 Screening for malignant neoplasm of colon (procedure) [code = 914441041] [facility] Future Scheduled Test 1972 00:00:00 Screening for malignant neoplasm of colon (procedure) [code = 339784466] [facility] Future Scheduled Test 1972 00:00:00 Screening for malignant neoplasm of colon (procedure) [code = 416010616] [facility] Future Scheduled Test 1972 00:00:00 Sigmoidoscopy [code = Sigmoidoscopy] [facility] Future Scheduled Test 1972 00:00:00 Screening for malignant neoplasm of breast (procedure) [code = 209998034] [facility] Future Scheduled Test 1972 00:00:00 CT Colonography (combo) [code = CT Colonography (combo)] [facility] Future Scheduled Test 1972 00:00:00 Screening for malignant neoplasm of colon (procedure) [code = 719400325] [facility] Future Scheduled Test 1972 00:00:00 Screening for malignant neoplasm of colon (procedure) [code = 100558200] [facility] Future Scheduled Test 1972 00:00:00 Screening for malignant neoplasm of colon (procedure) [code = 038338534] [facility] Future Scheduled Test 1972 00:00:00 Screening for malignant neoplasm of colon (procedure) [code = 085639393] [facility] Future Scheduled Test 1972 00:00:00 Sigmoidoscopy [code = Sigmoidoscopy] [facility] Future Scheduled Test 1972 00:00:00 Screening for malignant neoplasm of breast (procedure) [code = 890920204] [facility] Future Scheduled Test 1972 00:00:00 CT Colonography (combo) [code = CT Colonography (combo)] [facility] Future Scheduled Test 1972 00:00:00 Screening for malignant neoplasm of colon (procedure) [code = 357772118] [facility] Future Scheduled Test 1972 00:00:00 Screening for malignant neoplasm of colon (procedure) [code = 809091819] [facility] Future Scheduled Test 1972 00:00:00 Screening for malignant neoplasm of colon (procedure) [code = 374430473] [facility] Future Scheduled Test 1972 00:00:00 Screening for malignant neoplasm of colon (procedure) [code = 988298224] [facility] Future Scheduled Test 1972 00:00:00 Sigmoidoscopy [code = Sigmoidoscopy] [facility] Future Scheduled Test 1972 00:00:00 Screening for malignant neoplasm of breast (procedure) [code = 799987405] [facility] Future Scheduled Test 1972 00:00:00 CT Colonography (combo) [code = CT Colonography (combo)] [facility] Future Scheduled Test 1972 00:00:00 Screening for malignant neoplasm of colon (procedure) [code = 474857843] [facility] Future Scheduled Test 1972 00:00:00 Screening for malignant neoplasm of colon (procedure) [code = 215456665] [facility] Future Scheduled Test 1972 00:00:00 Screening for malignant neoplasm of colon (procedure) [code = 367168582] [facility] Future Scheduled Test 1972 00:00:00 Screening for malignant neoplasm of colon (procedure) [code = 183640284] [facility] Future Scheduled Test 1972 00:00:00 Sigmoidoscopy [code = Sigmoidoscopy] [facility] Future Scheduled Test 1972 00:00:00 Screening for malignant neoplasm of breast (procedure) [code = 088274245] [facility] Future Scheduled Test 1972 00:00:00 CT Colonography (combo) [code = CT Colonography (combo)] [facility] Future Scheduled Test 1972 00:00:00 Screening for malignant neoplasm of colon (procedure) [code = 243334564] [facility] Future Scheduled Test 1972 00:00:00 Screening for malignant neoplasm of colon (procedure) [code = 683659342] [facility] Future Scheduled Test 1972 00:00:00 Screening for malignant neoplasm of colon (procedure) [code = 883832811] [facility] Future Scheduled Test 1972 00:00:00 Screening for malignant neoplasm of colon (procedure) [code = 087890358] [facility] Future Scheduled Test 1972 00:00:00 Sigmoidoscopy [code = Sigmoidoscopy] [facility] Future Scheduled Test 1972 00:00:00 Screening for malignant neoplasm of breast (procedure) [code = 570294323] [facility] Future Scheduled Test 1972 00:00:00 CT Colonography (combo) [code = CT Colonography (combo)] [facility] Future Scheduled Test 1972 00:00:00 Screening for malignant neoplasm of colon (procedure) [code = 201844017] [facility] Future Scheduled Test 1972 00:00:00 Screening for malignant neoplasm of colon (procedure) [code = 577575890] [facility] Future Scheduled Test 1972 00:00:00 Screening for malignant neoplasm of colon (procedure) [code = 962077180] [facility] Future Scheduled Test 1972 00:00:00 Screening for malignant neoplasm of colon (procedure) [code = 675837562] [facility] Future Scheduled Test 1972 00:00:00 Sigmoidoscopy [code = Sigmoidoscopy] [facility] Goal Plan of Care Not e [code = 97175-7] Goal Plan of Care Not e [code = 18284-0] Goal Plan of Care Not e [code = 85730-7] Goal Plan of Care Not e [code = 49942-8] Goal Plan of Care Not e [code = 82739-0] Goal Plan of Care Not e [code = 67405-2] Goal Plan of Care Not e [code = 48261-2] Goal Plan of Care Not e [code = 85769-1] Goal Plan of Care Not e [code = 84195-6] Goal Plan of Care Not e [code = 31208-9] Goal Plan of Care Not e [code = 88723-6] Goal Plan of Care Not e [code = 33775-9] Goal Plan of Care Not e [code = 59891-8] Goal Plan of Care Not e [code = 87415-3] Goal Plan of Care Not e [code = 96403-5] Goal Plan of Care Not e [code = 94399-5] Goal Plan of Care Not e [code = 13524-3] Goal Plan of Care Not e [code = 90854-5] Goal Plan of Care Not e [code = 70570-7] Goal Plan of Care Not e [code = 09272-1] Goal Plan of Care Not e [code = 51625-7] Goal Plan of Care Not e [code = 47704-3] Goal Plan of Care Not e [code = 52332-0] Goal Plan of Care Not e [code = 22229-1] Goal Plan of Care Not e [code = 59175-5] Goal Plan of Care Not e [code = 16089-7] Goal Plan of Care Not e [code = 72995-1] Goal Plan of Care Not e [code = 25048-8] Goal Plan of Care Not e [code = 54438-3] Goal Plan of Care Not e [code = 53448-7] Goal Plan of Care Not e [code = 51257-6] Goal Plan of Care Not e [code = 66786-4] Goal Plan of Care Not e [code = 23020-6] Goal Plan of Care Not e [code = 33363-3] Goal Plan of Care Not e [code = 55855-4] Encounters Start Date/Time End Date/Time Encounter Type Admission Type Attending Clinicians [facility] [place] Facility Care Department Encounter ID Source 2023-06-16 09:32:36 Inpatient AYDEE DICKENS [facility] [id number] [facility] 2023-06-16 09:32:09 Inpatient AYDEE DICKENS [facility] [id number] [facility] 2023-06-16 09:31:53 Inpatient AYDEE DICKENS [facility] [id number] [facility] 2023-06-14 07:46:02 Inpatient AYDEE DICKENS [facility] [id number] [facility] 2023-06-14 07:39:22 Inpatient AYDEE DICKENS [facility] [id number] [facility] 2023-06-14 06:38:38 Inpatient AYDEE DICKENS [facility] [id number] [facility] 2023-06-13 13:44:18 Inpatient EL CARA BURGESS [facility] [id number] [facility] 2023-06-13 11:45:24 Inpatient AYDEE DICKENS [facility] [id number] [facility] 2023-05-08 11:21:00 Outpatient EL ADAM GARCIA [facility] Surgery [id number] [facility] 2023-04-01 14:26:29 Inpatient ER DEVORA, THOMAS [facility] [id number] [facility] 2023-03-31 09:24:52 Inpatient ER KAELYNMARIAH EUGENE [facility] [id number] [facility] 2021-05-20 18:48:04 Emergency [facility] [id number] [facility] 2021-05-20 12:43:40 Emergency [facility] [id number] [facility] 2023-06-13 03:43:00 2023-06-16 19:45:00 Hospital Encounter ER Jenifer Cara Aydee Singleton [facility] [id number] [facility] 2023-06-13 03:43:00 2023-06-16 19:45:00 Inpatient ER AYDEE GO [facility] Internal Med [id number] [facility] 2023-06-15 00:00:00 2023-06-15 00:00:00 Orders Only System, Provider Not In [facility] [id number] [facility] 2023-06-13 16:30:06 2023-06-13 16:30:06 Outpatient AYDEE DICKENS [facility] [id number] [facility] 2023-06-13 00:00:00 2023-06-13 00:00:00 Orders Only [facility] [id number] [facility] 2023-06-13 00:00:00 2023-06-13 00:00:00 Travel [facility] [id number] [facility] 2023-06-12 00:00:00 2023-06-12 00:00:00 Telephone Dallas Gomez [facility] [id number] [facility] 2023-05-28 06:45:00 2023-06-04 17:36:00 Hospital Encounter Adam Brantley [facility] [id number] [facility] 2023-05-28 06:45:00 2023-06-04 17:36:00 [facility] [id number] [facility] 2023-06-01 09:10:00 2023-06-01 13:00:00 Anesthesia Event Harry Newsome Mujtaba Ahmad [facility] [id number] [facility] 2023-06-01 09:00:00 2023-06-01 11:30:00 Surgery Adam Garcia [facility] [id number] [facility] 2023-06-01 09:47:57 2023-06-01 09:47:57 Outpatient ADAM BRANTLEY [facility] [id number] [facility] 2023-06-01 09:40:34 2023-06-01 09:40:34 Outpatient ADAM BRANTLEY [facility] [id number] [facility] 2023-05-31 09:25:55 2023-05-31 23:59:00 Inpatient ADAM BRANTLEY [facility] [id number] [facility] 2023-05-31 09:00:00 2023-05-31 23:59:00 Hospital Encounter Adam Garcia [facility] [id number] [facility] 2023-05-28 18:15:29 2023-05-28 18:15:29 Outpatient ADAM BRANTLEY [facility] [id number] [facility] 2023-05-28 08:30:00 2023-05-28 11:54:00 Anesthesia Event Yue Bui [facility] [id number] [facility] 2023-05-28 11:41:14 2023-05-28 11:41:14 Outpatient ADAM BRANTLEY [facility] [id number] [facility] 2023-05-28 08:30:00 2023-05-28 11:00:00 Surgery Adam Garcia [facility] [id number] [facility] 2023-05-28 10:00:47 2023-05-28 10:00:47 Outpatient ADAM BRANTLEY [facility] [id number] [facility] 2023-05-28 00:00:00 2023-05-28 00:00:00 Travel [facility] [id number] [facility] 2023-05-26 09:00:00 2023-05-26 09:00:00 Hospital Encounter Adam Garcia [facility] [id number] [facility] 2023-05-26 00:00:00 2023-05-26 00:00:00 Outpatient ADAM BRANTLEY [facility] [id number] [facility] 2023-05-26 00:00:00 2023-05-26 00:00:00 Outpatient NICOLETTE LIPSCOMB [facility] [id number] [facility] 2023-05-26 00:00:00 2023-05-26 00:00:00 Travel [facility] [id number] [facility] 2023-05-13 11:43:03 2023-05-13 11:43:03 Outpatient [facility] [address] Mart[address]nez 2023-05-12 00:00:00 2023-05-12 00:00:00 Orders Only Adam Garcia [facility] [id number] [facility] 2023-05-08 14:11:21 2023-05-08 14:11:21 Outpatient [facility] [address] Mart[address]nez 2023-03-29 19:25:00 2023-04-02 20:48:00 Inpatient ER DEOVRA, THOMAS [facility] [id number] [facility] 2023-03-29 19:25:00 2023-04-02 20:48:00 Hospital Encounter ER Connie Davey, Mariah Lozoya, Thomas Louisemacho [facility] [id number] [facility] 2023-03-31 08:32:56 2023-03-31 00:00:00 Inpatient ER MARIAH ALDRIDGE SLERigoberto SLE [id number] [facility] 2023-03-30 10:24:12 2023-03-30 23:59:00 Outpatient ER CONNIE DAVEY SLERigoberto SLE [id number] [facility] 2023-03-30 09:40:00 2023-03-30 23:59:00 Hospital Encounter Connie Davey [facility] [id number] [facility] 2023-03-30 13:46:20 2023-03-30 13:46:20 Outpatient ER MARIAH ALDRIDGE SLERigoberto SLE [id number] [facility] 2023-03-30 13:46:14 2023-03-30 13:46:14 Outpatient ER MARIAH ALDRIDGE SLERigoberto SLEH [id number] [facility] 2023-03-30 10:24:04 2023-03-30 10:24:04 Outpatient ER CONNIE DAVEY SLEH SLEH [id number] [facility] 2023-03-30 00:00:00 2023-03-30 00:00:00 Orders Only [facility] [id number] [facility] 2023-03-30 00:00:00 2023-03-30 00:00:00 Travel [facility] [id number] [facility] 2022-12-11 08:56:00 2022-12-11 15:29:00 Emergency X Alfonso ALVARADO [facility] ERT [id number] [facility] 2022-12-11 08:56:00 2022-12-11 15:29:00 Emergency Alfonso Alvarado Lorelei [facility] 1.2.840.114 350.1.13.10 4.2.7.2.686 [id number] [facility] 2022-11-17 17:25:00 2022-11-18 01:19:00 Emergency X RITCHIE WARREN [facility] ERT [id number] [facility] 2022-11-17 17:25:00 2022-11-18 01:19:00 Emergency Ritchie Warren E [facility] 1.2.840.114 350.1.13.10 4.2.7.2.686 [id number] [facility] 2022-08-28 00:00:00 2022-08-28 00:00:00 Patient Outreach Shy BeckmanCorbin [facility] 1.2.840.114 350.1.13.10 4.2.7.2.686 [id number] [facility] 2022-08-20 00:00:00 2022-08-20 00:00:00 Patient Outreach Shy Beckman BLAYNE [facility] 1.2.840.114 350.1.13.10 4.2.7.2.686 [id number] [facility] 2022-08-02 17:30:00 2022-08-03 14:29:00 Outpatient ER PARRISH WHEATLEY [facility] Neurology [id number] [facility] 2022-08-02 17:30:00 2022-08-03 14:29:00 Hospital Encounter ANTHONY Alecia MendozaJen Mendoza Parrish Reyez [facility] [id number] [facility] 2022-08-03 00:00:00 2022-08-03 00:00:00 Orders Only [facility] [id number] [facility] 2022-08-02 00:00:00 2022-08-02 00:00:00 Travel [facility] [id number] [facility] 2022-07-31 11:42:00 2022-08-01 21:48:00 Inpatient Valeria LORENZA LOWRY [facility] [id number] [facility] 2022-07-31 11:42:00 2022-08-01 21:48:00 Hospital Encounter Sav Rondon Yaman [facility] 1.2.840.114 350.1.13.10 4.2.7.2.686 [id number] [facility] 2022-08-01 00:00:00 2022-08-01 00:00:00 Transition of Care Maria Teresa Nicole [facility] 1.2.840.114 350.1.13.10 4.2.7.2.686 [id number] [facility] 2022-07-28 14:41:38 2022-07-28 14:41:38 Outpatient [facility] BHARAT 0109 Adria Martínez 2022-07-28 00:00:00 2022-07-28 00:00:00 Outpatient Visit [id number] 2022-07-24 13:24:40 2022-07-24 13:24:40 Outpatient [facility]AT 5 Adria Martínez 2022-05-23 14:51:01 2022-05-23 14:51:01 Outpatient SFA [facility] 1104 Adria Martínez 2022-05-23 00:00:00 2022-05-23 00:00:00 Outpatient Visit [id number] 2022-05-04 20:22:00 2022-05-08 14:44:00 Outpatient X ANNEMARIE FITZPATRICK [facility]ANDUSER [facility] [id number] [facility] 2022-05-04 20:22:00 2022-05-08 14:44:00 Emergency BrinerBrandyn [facility] 1.0.114 350.1.13.10 4.2.7.2.686 [id number] [facility] 2022-04-13 13:06:00 2022-04-15 15:00:00 Inpatient X [facility] [id number] [facility] 2022-04-13 13:06:00 2022-04-15 15:00:00 Hospital Encounter Sapna Vargas Muhammad Zeeshan [facility] 1..114 350.1.13.10 4.2.7.2.686 [id number] [facility] 2022-02-19 10:20:00 2022-02-19 10:30:00 Imm/Inj Visit Santos, [place]ancroft Jose Santiago [facility] 1..114 350.1.13.10 4.2.7.2.686 [id number] [facility] 2022-02-19 10:20:00 2022-02-19 10:20:00 Outpatient R JOSE PAK [facility] [id number] [facility] 2021-11-23 15:07:00 2021-11-23 17:03:00 Emergency X ESTEFANY NICHELLE [facility] ERT [id number] [facility] 2021-11-23 15:07:00 2021-11-23 17:03:00 Emergency Sav Rondon AjmitraNichelle adams Angelia [facility] 1..114 350.1.13.10 4.2.7.2.686 [id number] [facility] 2021-11-21 09:40:00 2021-11-21 09:40:00 Outpatient R [facility] [id number] [facility] 2021-05-24 09:30:00 2021-05-24 09:30:00 Outpatient R JOSE PAK [facility] [id number] [facility] 2021-05-24 08:47:51 2021-05-24 08:57:51 Imm/Inj Visit Vaccine, Bancroft Collettetristan Pak [facility] 1.114 350.1.13.10 4.2.7.2.686 [id number] [facility] 2021-05-03 09:40:00 2021-05-03 09:59:35 Outpatient R JOSE PAK [facility] [id number] [facility] 2021-05-03 09:17:43 2021-05-03 09:59:35 Imm/Inj Visit Vaccine, [place]roft Dangelo [facility] 1.114 350.1.13.10 4.2.7.2.686 [id number] [facility] 2021-04-16 00:00:00 2021-04-16 00:00:00 Orders Only Doctor Unassigned, Rowlett [facility] 1.114 350.1.13.10 4.2.7.2.686 [id number] [facility] 2021-03-17 00:00:00 2021-03-17 00:00:00 Telephone Miky Nava [facility] 1.2.840.114 350.1.13.10 4.2.7.2.686 [id number] [facility] 2021-03-16 20:08:00 2021-03-16 23:24:[address] [facility] 1.2.840.114 350.1.13.10 4.2.7.2.686 [id number] [facility] 2021-03-14 18:59:34 2021-03-14 20:19:13 Urgent Care Lydia Desouza Unknown, Attending [facility] 1..840.114 350.1.13.10 4.2.7.2.686 [id number] [facility] 2021-03-14 19:00:00 2021-03-14 19:00:00 Outpatient R UNKNOWN, ATTENDING [facility] [id number] [facility] 2021-02-19 10:49:00 2021-02-19 14:48:00 Emergency Anali Monroy [facility] 1..840.114 350.1.13.10 4.2.7.2.686 [id number] [facility] 2019-03-09 00:00:00 2019-03-09 00:00:00 Yehuda Zimmerman [facility] 1..840.114 350.1.13.10 4.2.7.2.686 [id number] 2019-03-09 00:00:00 2019-03-09 00:00:00 Yehuda Zimmerman [facility] 1..840.114 350.1.13.10 4.2.7.2.686 [id number] [facility] Results Test Description Test Time Test Comments Results Result Co mments Source BLOOD [id number] 07:00:09* Test Item Value Reference Range Interpretation Comme nts CULTURE (BEAKER) (test code = 1095) No growth in 5 days T-SPOT(R).[id number] 18:35:00* Test Item Value Reference Range Interpretation Comme nts T-SPOT.TB (test code = 20150903) Negative SeeBelow Normal Value: Ne gativeA negative test result does not exclude the possibility of exposure to or infection with Mycobacterium tuberculosis (M.tuberculosis). Patients with recent exposure to TB infected individuals exhibiting a negative T-SPOT.TB result should be considered for retesting within 6 weeks or if other relevant clinical symptoms indicate. Results from T-SPOT.TB testing must be used in conjunction with each individual's epidemiological history, current medical status, and results of other diagnostic evaluations. The T-SPOT.TB test is qualitative and results are reported as positive, borderline or negative, given that the test controls perform as expected. In line with the Centers for Disease Control and Prevention's 2010 recommendation to report quantitative measurements alongside the qualitative result, the laboratory provides spot counts for informational purposes only. The T-SPOT.TB test should not be interpreted as a quantitative test. PANEL A SPOT COUNT CORRECTED FOR NEG CONTROL (test code = 5550484) 1 PANEL B SPOT COUNT CORRECTED FOR NEG CONTROL (test code = 8813885) 0 NEGATIVE CONTROL (test code = 0442274) Passed POSITIVE CONTROL (test code = 6413193) Passed LYNDSAY (test code = LYNDSAY) [id number] [facility]).[id number] 18:35:00* Test Item Value Reference Range Interpretation Comme nts T-SPOT.TB (test code = 2862861) Negative SeeBelow Normal Value: Ne gativeA negative test result does not exclude the possibility of exposure to or infection with Mycobacterium tuberculosis (M.tuberculosis). Patients with recent exposure to TB infected individuals exhibiting a negative T-SPOT.TB result should be considered for retesting within 6 weeks or if other relevant clinical symptoms indicate. Results from T-SPOT.TB testing must be used in conjunction with each individual's epidemiological history, current medical status, and results of other diagnostic evaluations. The T-SPOT.TB test is qualitative and results are reported as positive, borderline or negative, given that the test controls perform as expected. In line with the Centers for Disease Control and Prevention's 2010 recommendation to report quantitative measurements alongside the qualitative result, the laboratory provides spot counts for informational purposes only. The T-SPOT.TB test should not be interpreted as a quantitative test. PANEL A SPOT COUNT CORRECTED FOR NEG CONTROL (test code = 6022971) 1 PANEL B SPOT COUNT CORRECTED FOR NEG CONTROL (test code = 7124668) 0 NEGATIVE CONTROL (test code = 3814956) Passed POSITIVE CONTROL (test code = 9954099) Passed LYNDSAY (test code = LYNDSAY) [id number] [facility] Center[facility] [id number] 13:41:18 Transesophageal Echocardiography Report (CHETAN) Demographics Patient Name YUE LAWS Date of Study 06/16/2023 ESTELLE Gender Female Visit Number [id number] Race Room Number 1055 Number Date of 1970 Referring Physician Age 53 year(s) Billposting Supervisor Interpreting Physician Brian MDProcedure Type of Study CHETAN procedure:TRANSESOPHAGEAL ECHO (Routine)Indications:Endocarditis.Clinical HistoryCOPDCHFCVADiverticulitisHTNPADSeizureCardiac Cath 2021Height: 63 inches Weight: 86.64 kg (191 lbs) BSA: 1.9 m^2 BMI: 33.83 kg/m^2HR: 93 bpm BP: 107/64 mmHgTEE Performed By: the attending and the fellow Procedure Informed Consent CHETAN procedurenotes Moderate sedation by performing MD using 10 mg IV versed and 100 mcg IV fentanyl. The patientwas counseled and informed consent was obtained. Topical and intravenous anesthesia was administered. The esophagus was intubated without difficulty. The probe was passed and only the initial 4-chamber view was obtained, the patient became agitated, the probe was withdrawn and the procedure aborted. No apparent complications.. Summary 1. The probe was passed and only the initial 4-chamber view was obtained, the patient became agitated, the probe was withdrawn and the procedure aborted. No apparent complications. Recommend repeat study with sedation by anesthesiology. 2. Mild MV leaflet thickening. Mild mitral regurgitation. No obvious masses on the mitral valve. Signature FindingsTechnical Quality: Technically adequate exam. Aortic Valve Not visualized. Mitral Valve Mild MV leaflet thickening. Mild mitral regurgitation. No obvious masses on the mitral valve. Tricuspid Valve Partially visualized. Pulmonic Valve Not visualized.[facility] CenterMRSA [id number] 09:55:41* Test Item Value Reference Range Interpretation Comme nts Result (test code = 6463-4) No [facility] [id number] 09:55:41* Test Item Value Reference Range Interpretation Comme nts Result (test code = 6463-4) No [facility] [id number] 09:55:41* Test Item Value Reference Range Interpretation Comme nts CULTURE (CloudVelocity) (test code = 1095) No MRSA isolated CRYPTOCOCCAL [id number] 15:50:36* Test Item Value Reference Range Interpretation Comme nts CRYPTOCOCCAL ANTIGEN, SERUM (CloudVelocity) (test code = 1828) Negative Negative, Interference SPUTUM CULTURE + GRAM [id number] 10:30:11* Test Item Value Reference Range Interpretation Comme nts CULTURE (CloudVelocity) (test code = 1095) PSEUDOMONAS AERUGINOSA A 2+ Pseudomonas aeruginosa Amikacin (test code = 1) See_Comment S [Automated message] The system which generated this result transmitted reference range: Susceptible 0-16 , Resistant <0 or >16 . The reference range was not used to interpret this result as normal/abnormal. Aztreonam (test code = 32) See_Comment S [Automated message] The system which generated this result transmitted reference range: Susceptible 0-8 , Resistant <0 or >8 . The reference range was not used to interpret this result as normal/abnormal. Cefepime (test code = 51) See_Comment S [Automated message] The system which generated this result transmitted reference range: Susceptible 0-8 , Resistant <0 or >8 . The reference range was not used to interpret this result as normal/abnormal. Ceftazidime (test code = 27) See_Comment S [Automated message] The system which generated this result transmitted reference range: Susceptible 0-8 , Resistant <0 or >8 . The reference range was not used to interpret this result as normal/abnormal. Ciprofloxacin (test code = 7) See_Comment S [Automated message] The system which generated this result transmitted reference range: Susceptible 0-0.5 , Resistant <0 or >.5 . The reference range was not used to interpret this result as normal/abnormal. Gentamicin (test code = 18) See_Comment S [Automated message] The system which generated this result transmitted reference range: Susceptible 0-4 , Resistant <0 or >4 . The reference range was not used to interpret this result as normal/abnormal. Levofloxacin (test code = 22) See_Comment S [Automated message] The system which generated this result transmitted reference range: Susceptible 0-1 , Resistant <0 or >1 . The reference range was not used to interpret this result as normal/abnormal. Meropenem (test code = 34) See_Comment S [Automated message] The system which generated this result transmitted reference range: Susceptible 0-2 , Resistant <0 or >2 . The reference range was not used to interpret this result as normal/abnormal. Piperacillin (test code = 24) See_Comment S [Automated message] The system which generated this result transmitted reference range: Susceptible 0-16 , Resistant <0 or >16 . The reference range was not used to interpret this result as normal/abnormal. Piperacillin + Tazobactam (test code = 29) See_Comment S [Automated message] The system which generated this result transmitted reference range: Susceptible 0-16 , Resistant <0 or >16 . The reference range was not used to interpret this result as normal/abnormal. Tobramycin (test code = 25) See_Comment S [Automated message] The system which generated this result transmitted reference range: Susceptible 0-4 , Resistant <0 or >4 . The reference range was not used to interpret this result as normal/abnormal. GRAM STAIN RESULT (BEAKER) (test code = 1123) 3+ WBCs GRAM STAIN RESULT (BEAKER) (test code = 340442) 10-15 epithelial cells GRAM STAIN RESULT (BEAKER) (test code = 601963) 2+ gram positive cocci in chains and pairs GRAM STAIN RESULT (BEAKER) (test code = 546632) 1+ gram negative rods GRAM STAIN RESULT (BEAKER) (test code = 648348) 1+ yeast 2+ Normal respiratory rebel presentVANCOMYCIN LEVEL, [id number] 06:41:26* Test Item Value Reference Range Interpretation Comme nts VANCOMYCIN TROUGH (BEAKER) ( test code = 522) 17.0 ug/mL 10.0-20.0 Technical Support Manager ID - ADMINECHO W CONTRAST & [id number] 13:44:03Transthoracic Echocardiography Report (TTE) Demographics Patient Name YUE LAWS Date of Study 06/14/2023 ESTELLE Gender Female Visit Number [id number] Race Room Number 1055 Number Date of 1970 Referring Aydee Go MD Physician Age 53 year(s) Billposting Supervisor James Albarran RDCS Interpreting Physician Brian MDProcedure Type of Study TTE procedure:2DECHO W DOPPLER(CW/PW/COLOR) (Routine)Indications:Suspected infective endocarditis with positive cultures or newmurmur.Clinical HistoryCOPDCVADiverticulitisHTNPADSeizureCardiacCath ontrast Medium: Definity. Amount - 2 mlHeight: [...] assessment is moderately reduced (35- 39%) . Allof the LV segments are moderately hypokinetic . Grade 2 diastolic dysfunction (moderately increasedLA pressure). 3. The right ventricular chamber size and systolic function are normal. 4. LA size isseverely enlarged . 5. There is aortic valve sclerosis without evidence of stenosis. Mild aortic reg urgitation. 6. Unable to estimate peak systolic PA pressure; inadequate TR velocity signal. Previous Study In comparison with the prior exam 03/31/23 the following changes are noted: EF 35-39% . Signature Findings Rhythm/BP Regular sinus rhythm during the exam. Left Ventricle LV endocardium is adequately visualized with IV ultrasound enhancing agent. The left ventricle is chamber size (by vol index) is severely enlarged (female - LVED vol >80ml/m2). Eccentric LV hypertrophy. Global LV systolic function moderately reduced . LVEF by Downs's method of disk assessment is moderately reduced (35-39%) . All of the LV segments are moderately hypokinetic . Grade 2 diastolic dysfunction (moderately increased LA pressure). Left Atrium LA size is severely enlarged . Right Ventricle The right ventricular chamber size and systolic function are normal. Right Atrium RA cavity size is normal . Aortic Valve The aortic valve is not well visualized. Probably trileaflet aortic valve. There is aortic valve sclerosis without evidence [...] No pericardial effusion is visualized. IVC/SVC/PA/PV/Pleural The IVC is <2.1cm and <50% collapsible suggestive of RAP of 8 mm Hg.Chambers/Structures Left Atrium LA Volume: 109.23 ml LA Vol. Index: 57 ml/m^2 Left Ventricle LVIDd: 6.07 cm LVEDV:141.86 ml LVIDs: 4.68 cm LV Septum Diastolic: [...] Time: 150.9 msec Area (continuity): 3.05 cm^2 MV VTI: 23.15 cm MV Evette. Peak: 1.57 m/s Aortic Valve Peak Velocity: 1.93 m/s Mean Velocity: 1.43 m/s Peak Gradient: 14.83 mmHg Mean Gradient: 8.95 mmHg AV Area (continuity): 2.03 cm^2 AV VTI: 34.77 cm AR P1/2t: 193.4 msec Deceleration Time: 667 msec AV DVI: 0.63 LVOT Peak Velocity: 1.18 m/s Peak Gradient: 5.66 mmHg Mean Velocity: 0.86 m/s Mean Gradient: 3.28 mmHg LVOT Diameter: 2.03 cm LVOT VTI: 21.8 cm LVOT Area: 3.24 cm^2 LVOT SV:70.52 ml LVOT CO: 6.49 l/min LVOT CI: 3.42 l/min/m^2 Pulmonic Valve Peak Velocity: 0.85 m/s Peak Gradient: 2.89 [facility] HEMOGLOBIN [id number] 09:26:42* Test Item Value Reference Range Interpretation Comme nts HEMOGLOBIN A1C ELECTROPHORESIS (LATOYA) (test code = 3811) 6.7 % See_Comment H [Automated me ssage] The system which generated this result transmitted reference range: <=5.6%. The reference range was not used to interpret this result as normal/abnormal. "The A1c is measured using a NGSP-certified method. HbA1c value equal to or greater than 6.5% as the diagnosis cutoff for diabetes. An HbA1c value of 5.7- 6.4% indicates increased risk for diabetes (prediabetes)."Technical Support Manager ID - ADMOperator ID - ADMECG 12 [id number] 09:06:12Ventricular Rate 97 BPMAtrial Rate 97 BPMP-R Interval 146 msQRS Duration 96 msQ-T Interval 378 msQTC Calculation(Bazett) 480 msP [place] 68 degreesR [place] 107 degreesT [place] 18 degrees Suspect arm leadreversal, interpretation assumes no reversalNormal sinus rhythmRightward axisNonspecific T wave abnormalityAbnormal ECGWhen compared with ECG of 30-MAR-2023 13:06,QRS axis Shifted rightConfirmed by Luis Lopez ([id number]) on 06/14/2023 9:06:07 [facility] [id number] 09:06:12Ventricular Rate 97 BPMAtrial Rate 97 BPMP-R Interval 146 msQRS Duration 96 msQ-T Interval 378 msQTC Calculation(Bazett) 480 msP [place] 68 degreesR [place] 107 degreesT [place] 18 degrees Suspect arm leadreversal, interpretation assumes no reversalNormal sinus rhythmRightward axisNonspecific T wave abno rmalityAbnormal ECGWhen compared with ECG of 30-MAR-2023 13:06,QRS axis Shifted rightConfirmed by Luis Lopez ([id number]) on 06/14/2023 9:06:07 [facility] WomenBAS[facility] METABOLIC [id number] 04:48:18* Test Item Value Reference Range Interpretation Comme nts SODIUM (BEAKER) (test code = 381) 138 meq/L 136-145 POTASSIUM (BEAKER) (test code = 379) 4.1 meq/L 3.5-5.1 CHLORIDE (BEAKER) (test code = 382) 106 meq/L 98-107 CO2 (BEAKER) (test code = 355) 19 meq/L 22-29 L BLOOD UREA NITROGEN (BEAKER) (test code = 354) 7 mg/dL 7-21 CREATININE (BEAKER) (test code = 358) 0.66 mg/dL 0.57-1.25 GLUCOSE RANDOM (BEAKER) (test code = 652) 117 mg/dL 70-105 H CALCIUM (BEAKER) (test code = 697) 8.6 mg/dL 8.4-10.2 EGFR (BEAKER) (test code = 1092) 106 mL/min/1.73 sq m Interpretation of eG FR values Stage Description Result G1 Normal or high >=90 G2 Mildly decreased 60-89 G3a Mildly to moderately 45-59 G3b Moderately to severely 30-44 G4 Severly decreased 15-29 G5 Kidney failure <15Reported eGFR is based on the CKD-EPI 2020 equation that does not use a race coefficientEstimated GFR is not as accurate as Creatinine Clearance in predicting glomerular filtration rate. Estimated GFR is not applicable for dialysis patients Technical Support Manager ID - ADMINCBC (HEMOGRAM ONLY)2023-06-14 04:22:50* Test Item Value Reference Range Interpretation Comme nts WHITE BLOOD CELL COUNT (BEAK ER) (test code = 775) 11.6 K/ L 3.5-10.5 H RED BLOOD CELL COUNT (BEAKER ) (test code = 761) 3.20 M/ L 3.93-5.22 L HEMOGLOBIN (BEAKER) (test co de = 410) 9.2 GM/DL 11.2-15.7 L HEMATOCRIT (BEAKER) (test co de = 411) 29.1 % 34.1-44.9 L MEAN CORPUSCULAR VOLUME (SAGE KER) (test code = 753) 91 fL 79-95 MEAN CORPUSCULAR HEMOGLOBIN (BEAKER) (test code = 751) 28.8 pg 25.6-32.2 MEAN CORPUSCULAR HEMOGLOBIN CONC (BEAKER) (test code = 752) 31.6 GM/DL 32.2-35.5 L RED CELL DISTRIBUTION WIDTH (BEAKER) (test code = 412) 16.6 % 11.7-14.4 H PLATELET COUNT (BEAKER) (raisa t code = 756) 460 K/CU MM 150-450 H MEAN PLATELET VOLUME (BEAKER ) (test code = 754) 8.8 fL 9.4-12.3 L NUCLEATED RED BLOOD CELLS (BEAKER) (test code = 413) 0 /100 WBC 0-0 Strep pneumoniae [id number] 23:34:41* Test Item Value Reference Range Interpretation Comme nts Strep pneumoniae Antigen (test code = 50743-2) Presumptive negative for pneumococcal pneumonia - see comment Presumptive negative for pneumococcal pneumonia - see comment, Presumptive negative for pneumococcal meningitis - see comment LYNDSAY (test code = LYNDSAY) Presumptive negati ve for pneumococcal pneumonia, suggesting no current or recent pneumococcal infection. Infection due to S. pneumoniae cannot be ruled out since the antigen present in the sample may be below the detection limit of the test. Lab Interpretation (test code = 02597-6) Normal [facility] [id number] 23:34:41* Test Item Value Reference Range Interpretation Comme nts Strep pneumoniae Antigen (test code = 35793-9) Presumptive negative for pneumococcal pneumonia - see comment Presumptive negative for pneumococcal pneumonia - see comment, Presumptive negative for pneumococcal meningitis - see comment LYNDSAY (test code = LYNDSAY) Presumptive negati ve for pneumococcal pneumonia, suggesting no current or recent pneumococcal infection. Infection due to S. pneumoniae cannot be ruled out since the antigen present in the sample may be below the detection limit of the test. Lab Interpretation (test code = 86929-0) [facility] [id number] 23:34:41* Test Item Value Reference Range Interpretation Comme nts STREP PNEUMONIAE ANTIGEN (BEAKER) (test code = 1615) Presumptive negative for pneumococcal pneumonia - see comment Presumptive negative for pneumococcal pneumonia - see commen Presumptive negative for pneumococcal pneumonia, suggesting no current or recent pneumococcal infection. Infection due to S. pneumoniae cannot be ruled out since the antigen present in the sample maybe below the detection limit of the test. Legionella antigen, [id number] 23:29:07* Test Item Value Reference Range Interpretation Comme nts Legionella Urine Antigen (test code = 22626-0) Negative - see comment Negative Negative for L. pneumophila serogroup 1 antigen, suggesting no recent or current infection with this serogroup. Legionellosis cannot be ruled out since other serogroups and species may cause disease. Lab Interpretation (test code = 90909-7) Normal [facility] CenterLegionella antigen, [id number] 23:29:07* Test Item Value Reference Range Interpretation Comme nts Legionella Urine Antigen (test code = 18236-5) Negative - see comment Negative Negative for L. pneumophila serogroup 1 antigen, suggesting no recent or current infection with this serogroup. Legionellosis cannot be ruled out since other serogroups and species may cause disease. Lab Interpretation (test code = 88188-5) Normal [facility] CenterLEGIONELLA ANTIGEN, [id number] 23:29:07* Test Item Value Reference Range Interpretation Comme nts L. PNEUMOPHILA SEROGP 1 UR AG (BEAKER) (test code = 1156) Negative - see comment Negative Negative for L. pneumophila serogroup 1 antigen, suggesting no recent or current infection with this serogroup. Legionellosis cannot be ruled out since other serogroups and species may cause disease. Venous doppler arm, [id number] 20:05:32PV LAB - Upper Extremities Veins Demographics Patient Name YUE LAWS Date of Study 06/13/2023 ESTELLE Age 53 Visit Number [id number] Gender Female Accession Number [id number] Date of 1970 Referring Cara Burgess Room Number 1055 Physician [place] Supervisor Lisa Ruiz Interpreting John Solorio, Physician FellowProcedureType of Study: Veins: Upper Extremities Veins, VENOUS DOPPLER ARM, LEFT.Indications for Study:Left arm pain .Patient Status:MICHAEL.Study Locati on:Portable.Technical Quality:Adequate visualization. - Results were reported to:Lina CAMPOS@16:50 pm .Risk FactorsHistory of Disease+ + + --------+!Diagnosis !Date !Comments !+ + + +!History/Risk Factors: !03/30/2023!CHF, CVA, HTN. !+ --+ + +ImpressionsLeft Impression1. There is no deep venous [...] in cm/s ; Diameters are measured in [facility] ANTIGEN WITH HIV-1/2 [id number] 18:36:40* Test Item Value Reference Range Interpretation Comme nts HIV-1 ANTIGEN WITH HIV 1\\T\\2 ANTIBODY (2) (LATOYA) (test code = 2586) Nonreactive Nonreactive MR lumbar spine without & with IV [id number] 14:53:29MR LUMBAR SPINE WITH & WITHOUT IV CONTRAST INDICATION: Lumbar radiculopathy, prior surgery, new symptoms COMPARISON: 03/30/2023 TECHNIQUE: Multiplanar, multisequence MR images of the lumbar spine withand without contrast. FINDINGS: Numbering: Last fully formed disc space is designated L5-S1. Spinal cord: The conus medullaris is normal is size, signal intensity,and position, terminating at the L1 level. Reduced cauda equinaredundancy above the L3-4 level. Osseous structures: Status post laminectomy at L3-4. Stable osseousalignment and scattered marrow degenerative changes without evidence ofacute osseous fracture. Discs: Disc space narrowing most pronounced at L3-4 and L4-5. Evaluation ofthe individual levels demonstrates: L1/L2: No disc herniation, [...] neuralforaminal stenosis without significant central spinal canal st enosis. Paraspinal soft tissues: L3-4 laminectomy contains T2 hyperintense fluidmeasuring 3.3 x 1.7x 1.7 cm. Dorsal paraspinal musculature Y9cskpepdncblisz. Postcontrast imaging demonstrates mild peripheralenhancement of the dorsal paraspinal fluid collection. Left adrenalgland 2.9 cm nodule.[facility] CenterMR LUMBAR SPINE WITH & WITHOUT IV [id number] 14:53:29[facility] : 1970 Sex: FMR LUMBAR SPINE WITH & WITHOUT IV CONTRASTINDICATION: Lumbar radiculopathy, prior surgery, new symptomsCOMPARISON: 03/30/2023TECHNIQUE: Multiplanar, multisequence MR images of the lumbar spine withand without contrast. FINDINGS: Numbering: Last fully formed disc space is designated L5-S1.Spinalcord: The conus medullaris is normal is size, signal intensity,and position, terminating at the L1 level. Reduced cauda equinaredundancy above the L3-4 level.Osseous structures: Status post laminectomy at L3-4. Stable osseousalignment and scattered marrow degenerative changes without evidence ofacute osseous fracture.Discs: Disc space narrowing most pronounced at L3-4 and L4-5.Evaluation of the individual levels demonstrates:L1/L2: No disc herniation, spinal canal stenosis, or neural foraminalnarrowing.L2/L3: Disc bulge, moderate central spinal canal stenosis, mildbilateral neural foraminal stenosis.L3/L4: Disc bulge with bilateral subarticular recess encroachment,laminectomy with patent canal but dorsal fluid collection and facethypertrophy contributes to subarachnoid space effacement wit h moderatecrowding of the cauda equina. Moderate to severe left and moderate rightneural foraminal stenosis.L4/L5: Laminectomy, diffuse disc bulge with subarticular recessencroachment but patent canal. Moderate to severe bilateral neuralforaminal stenosis.L5/S1: Disc bulge, facet arthropathy, mild to moderate bilateral neuralforaminal stenosis without significant central spinal canal stenosis.Paraspinal soft tissues: L3-4 laminectomy contains T2 hyperintense fluidmeasuring 3.3 x 1.7 x 1.7 cm. Dorsal paraspinal musculature W5dnvwcuxkspuate. Postcontrast imaging demonstrates mild peripheralenhancement of the dorsal paraspinal fluid collection. Left adrenalgland 2.9 cm nodule.IMPRESSION:L3-4 laminectomy with 3.3 x 1.7 x 1.7 cm fluid collection within thelaminectomy defect suggestive of a postoperative seroma but sterility ofthe collection is not assessed and abscess or pseudomeningocele may havea similar appearance. Paraspinal marginal enhancement likely granulationtissue or fibrosis.L2-3 through L4-5 disc herniations with multilevel neural foraminalstenosis similar to prior exam.Left adrenal gland 2.1 cm indeterminate nodule can be further assessedby adrenal protocol CT or MRI abdomen imaging.Electronically Signed By: Ryan Buckley06/13/2023 14:55 CDTWorkstation Name: [id number] KINASE (CK)2023-06-13 11:54:02* Test Item Value Reference Range Interpretation Comme nts CREATINE KINASE TOTAL (BEAKE R) (test code = 380) 43 U/L 29-200 Technical Support Manager ID - ADMINCOMPREHENSIVE METABOLIC [id number] 06:48:22* Test Item Value Reference Range Interpretation Comme nts TOTAL PROTEIN (BEAKER) (test code = 770) 6.5 gm/dL 6.0-8.3 ALBUMIN (BEAKER) (test code = 1145) 3.1 g/dL 3.5-5.0 L ALKALINE PHOSPHATASE (BEAKER) (test code = 346) 87 U/L 40-150 BILIRUBIN TOTAL (BEAKER) (test code = 377) 0.4 mg/dL 0.2-1.2 SODIUM (BEAKER) (test code = 381) 140 meq/L 136-145 POTASSIUM (BEAKER) (test code = 379) 3.5 meq/L 3.5-5.1 CHLORIDE (BEAKER) (test code = 382) 106 meq/L 98-107 CO2 (BEAKER) (test code = 355) 22 meq/L 22-29 BLOOD UREA NITROGEN (BEAKER) (test code = 354) 8 mg/dL 7-21 CREATININE (BEAKER) (test code = 358) 0.61 mg/dL 0.57-1.25 GLUCOSE RANDOM (BEAKER) (test code = 652) 86 mg/dL 70-105 CALCIUM (BEAKER) (test code = 697) 8.3 mg/dL 8.4-10.2 L AST (SGOT) (BEAKER) (test code = 353) 14 U/L 5-34 ALT (SGPT) (BEAKER) (test code = 347) 10 U/L 6-55 EGFR (BEAKER) (test code = 1092) 108 mL/min/1.73 sq m Interpretation of eG FR values Stage Description Result G1 Normal or high >=90 G2 Mildly decreased 60-89 G3a Mildly to moderately 45-59 G3b Moderately to severely 30-44 G4 Severly decreased 15-29 G5 Kidney failure <15Reported eGFR is based on the CKD-EPI 2020 equation that does not use a race coefficientEstimated GFR is not as accurate as Creatinine Clearance in predicting glomerular filtration rate. Estimated GFR is not applicable for dialysis patients Technical Support Manager ID - ADMINPROTHROMBIN TIME/[id number] 06:40:01* Test Item Value Reference Range Interpretation Comme nts PROTIME (BEAKER) (test code = 759) 15.0 seconds 11.9-14.2 H INR (BEAKER) (test code = 370) 1.17 <=5.90 RECOMMENDED COUMADIN/WARFARIN INR THERAPY RANGESSTANDARD DOSE: 2.0 - 3.0 Includes: PROPHYLAXIS for venous thrombosis, systemic embolization; TREATMENT for venous thrombosis and/or pulmonary embolus.HIGH RISK: Target INR is 2.5-3.5 for patients with mechanical heart valves.CBC W/PLT COUNT & AUTO DIFFERENTIAL 2023-06-13 06:25:35* Test Item Value Reference Range Interpretation Comme nts WHITE BLOOD CELL COUNT (BEAK ER) (test code = 775) 10.7 K/ L 3.5-10.5 H RED BLOOD CELL COUNT (BEAKER ) (test code = 761) 3.10 M/ L 3.93-5.22 L HEMOGLOBIN (BEAKER) (test co de = 410) 8.8 GM/DL 11.2-15.7 L HEMATOCRIT (BEAKER) (test co de = 411) 28.1 % 34.1-44.9 L MEAN CORPUSCULAR VOLUME (SAGE KER) (test code = 753) 91 fL 79-95 MEAN CORPUSCULAR HEMOGLOBIN (BEAKER) (test code = 751) 28.4 pg 25.6-32.2 MEAN CORPUSCULAR HEMOGLOBIN CONC (BEAKER) (test code = 752) 31.3 GM/DL 32.2-35.5 L RED CELL DISTRIBUTION WIDTH (BEAKER) (test code = 412) 16.6 % 11.7-14.4 H PLATELET COUNT (BEAKER) (raisa t code = 756) 460 K/CU MM 150-450 H MEAN PLATELET VOLUME (BEAKER ) (test code = 754) 8.9 fL 9.4-12.3 L NUCLEATED RED BLOOD CELLS (BEAKER) (test code = 413) 0 /100 WBC 0-0 NEUTROPHILS RELATIVE PERCENT (BEAKER) (test code = 429) 69 % LYMPHOCYTES RELATIVE PERCENT (BEAKER) (test code = 430) 19 % MONOCYTES RELATIVE PERCENT (BEAKER) (test code = 431) 8 % EOSINOPHILS RELATIVE PERCENT (BEAKER) (test code = 432) 2 % BASOPHILS RELATIVE PERCENT (BEAKER) (test code = 437) 0 % NEUTROPHILS ABSOLUTE COUNT (BEAKER) (test code = 670) 7.35 K/ L 1.56-6.13 H LYMPHOCYTES ABSOLUTE COUNT (BEAKER) (test code = 414) 2.03 K/ L 1.18-3.74 MONOCYTES ABSOLUTE COUNT (BE BRIDGER) (test code = 415) 0.90 K/ L 0.24-0.36 H EOSINOPHILS ABSOLUTE COUNT (BEAKER) (test code = 416) 0.19 K/ L 0.04-0.36 BASOPHILS ABSOLUTE COUNT (BE BRIDGER) (test code = 417) 0.03 K/ L 0.01-0.08 IMMATURE GRANULOCYTES-RELATI VE PERCENT (BEAKER) (test code = 2801) 1.70 % 0.00-1.00 H [id number] 05:26:09* Test Item Value Reference Range Interpretation Comme nts MAGNESIUM (BEAKER) (test cod e = 627) 2.0 mg/dL 1.6-2.6 Technical Support Manager ID - [id number] 05:26:09* Test Item Value Reference Range Interpretation Comme nts PHOSPHORUS (BEAKER) (test co de = 604) 3.5 mg/dL 2.3-4.7 Technical Support Manager ID - ADMINBASIC METABOLIC [id number] 05:26:08* Test Item Value Reference Range Interpretation Comme nts SODIUM (BEAKER) (test code = 381) 138 meq/L 136-145 POTASSIUM (BEAKER) (test code = 379) 4.0 meq/L 3.5-5.1 CHLORIDE (BEAKER) (test code = 382) 102 meq/L 98-107 CO2 (BEAKER) (test code = 355) 28 meq/L 22-29 BLOOD UREA NITROGEN (BEAKER) (test code = 354) 8 mg/dL 7-21 CREATININE (BEAKER) (test code = 358) 0.72 mg/dL 0.57-1.25 GLUCOSE RANDOM (BEAKER) (test code = 652) 115 mg/dL 70-105 H CALCIUM (BEAKER) (test code = 697) 8.6 mg/dL 8.4-10.2 EGFR (BEAKER) (test code = 1092) 101 mL/min/1.73 sq m Interpretation of eG FR values Stage Description Result G1 Normal or high >=90 G2 Mildly decreased 60-89 G3a Mildly to moderately 45-59 G3b Moderately to severely 30-44 G4 Severly decreased 15-29 G5 Kidney failure <15Reported eGFR is based on the CKD-EPI 2020 equation that does not use a race coefficientEstimated GFR is not as accurate as Creatinine Clearance in predicting glomerular filtration rate. Estimated GFR is not applicable for dialysis patients Technical Support Manager ID - ADMINCBC W/PLT COUNT & AUTO [id number] 05:11:15* Test Item Value Reference Range Interpretation Comme nts WHITE BLOOD CELL COUNT (BEAK ER) (test code = 775) 13.6 K/ L 3.5-10.5 H RED BLOOD CELL COUNT (BEAKER ) (test code = 761) 3.76 M/ L 3.93-5.22 L HEMOGLOBIN (BEAKER) (test co de = 410) 10.9 GM/DL 11.2-15.7 L HEMATOCRIT (BEAKER) (test co de = 411) 35.4 % 34.1-44.9 MEAN CORPUSCULAR VOLUME (SAGE KER) (test code = 753) 94 fL 79-95 MEAN CORPUSCULAR HEMOGLOBIN (BEAKER) (test code = 751) 29.0 pg 25.6-32.2 MEAN CORPUSCULAR HEMOGLOBIN CONC (BEAKER) (test code = 752) 30.8 GM/DL 32.2-35.5 L RED CELL DISTRIBUTION WIDTH (BEAKER) (test code = 412) 16.0 % 11.7-14.4 H PLATELET COUNT (BEAKER) (raisa t code = 756) 357 K/CU MM 150-450 MEAN PLATELET VOLUME (BEAKER ) (test code = 754) 8.4 fL 9.4-12.3 L NUCLEATED RED BLOOD CELLS (BEAKER) (test code = 413) 0 /100 WBC 0-0 NEUTROPHILS RELATIVE PERCENT (BEAKER) (test code = 429) 81 % LYMPHOCYTES RELATIVE PERCENT (BEAKER) (test code = 430) 10 % MONOCYTES RELATIVE PERCENT (BEAKER) (test code = 431) 8 % EOSINOPHILS RELATIVE PERCENT (BEAKER) (test code = 432) 0 % BASOPHILS RELATIVE PERCENT (BEAKER) (test code = 437) 0 % NEUTROPHILS ABSOLUTE COUNT (BEAKER) (test code = 670) 10.97 K/ L 1.56-6.13 H LYMPHOCYTES ABSOLUTE COUNT (BEAKER) (test code = 414) 1.41 K/ L 1.18-3.74 MONOCYTES ABSOLUTE COUNT (BE BRIDGER) (test code = 415) 1.10 K/ L 0.24-0.36 H EOSINOPHILS ABSOLUTE COUNT (BEAKER) (test code = 416) 0.00 K/ L 0.04-0.36 L BASOPHILS ABSOLUTE COUNT (BE BRIDGER) (test code = 417) 0.02 K/ L 0.01-0.08 IMMATURE GRANULOCYTES-RELATI VE PERCENT (BEAKER) (test code = 2801) 0.70 % 0.00-1.00 XR spine lumbar 1 [id number] 10:32:20XR SPINE LUMBAR 1 VIEW CLINICAL INDICATION: L3-4 [facility]INECTOMY [facility] [id number] 10:32:20 [facility] : 1970 Sex: FXR SPINE LUMBAR 1 VIEWCLINICAL INDICATION: L3-4 LAMINECTOMYCOMPARISON: NoneIMPRESSION:A single lateral view of the lumbar spine is obtained intraoperatively.The posterior approach surgical instrument is seen at the L3-L4 level,inferior to the L3 spinous process. Results were communicated to , who concurred with the above findings. Electronically Signed By: Maxim Ramos08/01/2022 10:34 CDTWo rkstation Name: [id number] SPINE LUMBAR 1 [id number] 10:29:18 [facility] : 1970 Sex: FCLINICAL HISTORY: L3-4 LAMINECTOMYTECHNIQUE: Single view of the lumbar spine.COMPARISON: NoneFINDINGS: A spinal needle overlies the L3 spinous process.Moderate spondylosis and facet arthropathy are present within the spine.Moderate to severe disc space narrowing at L4-L5. The vertebral body heights are maintained without fracture ordislocation. Scattered atherosclerotic vascular calcifications.IMPRESSION:A spinal needle overlies the L3 spinous process.Electronically Signed By: Maxim Ramos08/01/2022 10:31 CDTWorkstation Name: [id number] Screen, [id number] 05:32:52* Test Item Value Reference Range Interpretation Comme nts Preg Test, Ur (test code = 2112-1) Negative Negative Lab Interpretation (test cod e = 06382-1) Normal [facility] CenterPregnancy Screen, [id number] 05:32:52* Test Item Value Reference Range Interpretation Comme nts Preg Test, Ur (test code = 2-1) Negative Negative Lab Interpretation (test cod e = 56735-4) Normal [facility] CenterPregnancy Screen, [id number] 05:32:52* Test Item Value Reference Range Interpretation Comme nts Preg Test, Ur (test code = 2-1) Negative Negative Lab Interpretation (test cod e = 66591-5) Normal [facility] CenterPregnancy Screen, [id number] 05:32:52* Test Item Value Reference Range Interpretation Comme nts Preg Test, Ur (test code = 2-1) Negative Negative Lab Interpretation (test cod e = 04826-9) Normal [facility] CenterPregnancy Screen, [id number] 05:32:52* Test Item Value Reference Range Interpretation Comme nts Preg Test, Ur (test code = 2-1) Negative Negative Lab Interpretation (test cod e = 01411-6) Normal [facility] CenterPREGNANCY SCREEN, [id number] 05:32:52* Test Item Value Reference Range Interpretation Comme nts TEST URINE (BEAKER ) (test code = 583) Negative Negative BASIC METABOLIC [id number] 23:30:54* Test Item Value Reference Range Interpretation Comme nts SODIUM (BEAKER) (test code = 381) 137 meq/L 136-145 POTASSIUM (BEAKER) (test code = 379) 4.6 meq/L 3.5-5.1 CHLORIDE (BEAKER) (test code = 382) 99 meq/L 98-107 CO2 (BEAKER) (test code = 355) 26 meq/L 22-29 BLOOD UREA NITROGEN (BEAKER) (test code = 354) 10 mg/dL 7-21 CREATININE (BEAKER) (test code = 358) 0.76 mg/dL 0.57-1.25 GLUCOSE RANDOM (BEAKER) (test code = 652) 159 mg/dL 70-105 H CALCIUM (BEAKER) (test code = 697) 9.5 mg/dL 8.4-10.2 EGFR (BEAKER) (test code = 1092) 95 mL/min/1.73 sq m Interpretation of eG FR values Stage Description Result G1 Normal or high >=90 G2 Mildly decreased 60-89 G3a Mildly to moderately 45-59 G3b Moderately to severely 30-44 G4 Severly decreased 15-29 G5 Kidney failure <15Reported eGFR is based on the CKD-EPI 2020 equation that does not use a race coefficientEstimated GFR is not as accurate as Creatinine Clearance in predicting glomerular filtration rate. Estimated GFR is not applicable for dialysis patients Technical Support Manager ID - ADMINPT/[id number] 23:15:33* Test Item Value Reference Range Interpretation Comme nts PROTIME (BEAKER) (test code = 759) 13.5 seconds 11.9-14.2 INR (BEAKER) (test code = 370) 1.02 <=5.90 PARTIAL THROMBOPLASTIN TIME (BEAKER) (test code = 760) 31.6 seconds 22.5-36.0 RECOMMENDED COUMADIN/WARFARIN INR THERAPY RANGESSTANDARD DOSE: 2.0 - 3.0 Includes: PROPHYLAXIS for venous thrombosis, systemic embolization; TREATMENT for venous thrombosis and/or pulmonary embolus.HIGH RISK: Target INR is 2.5-3.5 for patients with mechanical heart valves.CBC W/PLT COUNT & AUTO DIFFERENTIAL 2023-05-31 23:13:01* Test Item Value Reference Range Interpretation Comme nts WHITE BLOOD CELL COUNT (BEAK ER) (test code = 775) 8.1 K/ L 3.5-10.5 RED BLOOD CELL COUNT (BEAKER ) (test code = 761) 4.48 M/ L 3.93-5.22 HEMOGLOBIN (BEAKER) (test co de = 410) 12.8 GM/DL 11.2-15.7 HEMATOCRIT (BEAKER) (test co de = 411) 40.8 % 34.1-44.9 MEAN CORPUSCULAR VOLUME (SAGE KER) (test code = 753) 91 fL 79-95 MEAN CORPUSCULAR HEMOGLOBIN (BEAKER) (test code = 751) 28.6 pg 25.6-32.2 MEAN CORPUSCULAR HEMOGLOBIN CONC (BEAKER) (test code = 752) 31.4 GM/DL 32.2-35.5 L RED CELL DISTRIBUTION WIDTH (BEAKER) (test code = 412) 15.3 % 11.7-14.4 H PLATELET COUNT (BEAKER) (raisa t code = 756) 392 K/CU MM 150-450 MEAN PLATELET VOLUME (BEAKER ) (test code = 754) 8.2 fL 9.4-12.3 L NUCLEATED RED BLOOD CELLS (BEAKER) (test code = 413) 0 /100 WBC 0-0 NEUTROPHILS RELATIVE PERCENT (BEAKER) (test code = 429) 89 % LYMPHOCYTES RELATIVE PERCENT (BEAKER) (test code = 430) 9 % MONOCYTES RELATIVE PERCENT (BEAKER) (test code = 431) 1 % EOSINOPHILS RELATIVE PERCENT (BEAKER) (test code = 432) 0 % BASOPHILS RELATIVE PERCENT (BEAKER) (test code = 437) 0 % NEUTROPHILS ABSOLUTE COUNT (BEAKER) (test code = 670) 7.18 K/ L 1.56-6.13 H LYMPHOCYTES ABSOLUTE COUNT (BEAKER) (test code = 414) 0.72 K/ L 1.18-3.74 L MONOCYTES ABSOLUTE COUNT (BE BRIDGER) (test code = 415) 0.09 K/ L 0.24-0.36 L EOSINOPHILS ABSOLUTE COUNT (BEAKER) (test code = 416) 0.00 K/ L 0.04-0.36 L BASOPHILS ABSOLUTE COUNT (BE BRIDGER) (test code = 417) 0.02 K/ L 0.01-0.08 IMMATURE GRANULOCYTES-RELATI VE PERCENT (BEAKER) (test code = 2801) 1.10 % 0.00-1.[address] neck soft tissue without IV [id number] 13:45:22EXAM: CT NECK SOFT TISSUE WITHOUT IV CONTRAST CLINICAL INDICATION: Soft tissue mass, neck, spontaneous hemorrhage. TECHNIQUE: Helical CT examination of the neck without IV contrast.Sagittal and coronal reformations were generated. This exam wasperformed according to our departmental dose-optimization program, whichincludes automated exposure control, adjustment of the mA and/or kVaccording to patient size and/or use of iterative reconstructiontechnique. COMPARISON: 08/02/2022 [...] transverse) region of fluid is seen inthe leftanterolateral neck soft tissues deep to the platysma muscle(axial image 59). Aerodigestive Tract Str uctures: Nasopharynx, oropharynx, oral cavity,larynx and hypopharynx are normal. Lymph Nodes: No pathologic appearing cervical lymph nodes. Parotid Glands: NormalSubmandibular Glands: NormalThyroid Gland: Normal Included Intracranial Structures: NormalIncluded Orbits: Normal Paranasal Sinuses: Partial desiccation of the left inferior maxillarysinus.Tympanomastoid Cavities: Normal Vascular Structures: NormalOsseous Structures: Moderate rightward convexity of the bony nasalseptum. Postoperative changes from anterior cervical discectomy fusionat C3-T2Joduehsi Lung Apices: NormalCHI Hollywood Presbyterian Medical CenterCT NECK SOFT TISSUE WITHOUT IV [id number] 13:45:22 [facility] : 1970 Sex: FEXAM: CT NECK SOFT TISSUE WITHOUT IV CONTRASTCLINICAL INDICATION: Soft tissue mass, neck, spontaneo us hemorrhage.TECHNIQUE: Helical CT examination of the neck without [...] Postoperative changes from anterior cervical discectomy fusionat C3-T7Yiwjuyic Lung Apices: NormalIMPRESSION:Exam limited by lack of intravenous contrast.1. 1.8 x 2.9 x 1.3 cm ill-defined fluid collection in the leftanterolateral neck soft tissues, suggesting evolving postoperativehemorrhage. Superimposed infection is not ex cluded.2. Retropharyngeal fluid and air measuring up to 0.8 cm in thickness,favored to be present postoperative right frontal edema. Superimposedinfection is not excluded.3. Postoperative changes from ACDF at C3- K2Kxfebvdxkxpysp Signed By: Maxim Ramos07/31/2022 13:47 CDTWorkstation Name: [id number] METABOLIC [id number] 08:13:13* Test Item Value Reference Range Interpretation Comme nts SODIUM (BEAKER) (test code = 381) 137 meq/L 136-145 POTASSIUM (BEAKER) (test code = 379) 4.1 meq/L 3.5-5.1 CHLORIDE (BEAKER) (test code = 382) 104 meq/L 98-107 CO2 (BEAKER) (test code = 355) 22 meq/L 22-29 BLOOD UREA NITROGEN (BEAKER) (test code = 354) 10 mg/dL 7-21 CREATININE (BEAKER) (test code = 358) 0.70 mg/dL 0.57-1.25 GLUCOSE RANDOM (BEAKER) (test code = 652) 92 mg/dL 70-105 CALCIUM (BEAKER) (test code = 697) 8.7 mg/dL 8.4-10.2 EGFR (BEAKER) (test code = 1092) 105 mL/min/1.73 sq m Interpretation of eG FR values Stage Description Result G1 Normal or high >=90 G2 Mildly decreased 60-89 G3a Mildly to moderately 45-59 G3b Moderately to severely 30-44 G4 Severly decreased 15-29 G5 Kidney failure <15Reported eGFR is based on the CKD-EPI 2020 equation that does not use a race coefficientEstimated GFR is not as accurate as Creatinine Clearance in predicting glomerular filtration rate. Estimated GFR is not applicable for dialysis patients Technical Support Manager ID - BVCBC W/PLT COUNT & AUTO [id number] 07:46:31* Test Item Value Reference Range Interpretation Comme nts WHITE BLOOD CELL COUNT (BEAK ER) (test code = 775) 9.0 K/ L 3.5-10.5 RED BLOOD CELL COUNT (BEAKER ) (test code = 761) 4.51 M/ L 3.93-5.22 HEMOGLOBIN (BEAKER) (test co de = 410) 12.8 GM/DL 11.2-15.7 HEMATOCRIT (BEAKER) (test co de = 411) 41.5 % 34.1-44.9 MEAN CORPUSCULAR VOLUME (SAGE KER) (test code = 753) 92 fL 79-95 MEAN CORPUSCULAR HEMOGLOBIN (BEAKER) (test code = 751) 28.4 pg 25.6-32.2 MEAN CORPUSCULAR HEMOGLOBIN CONC (BEAKER) (test code = 752) 30.8 GM/DL 32.2-35.5 L RED CELL DISTRIBUTION WIDTH (BEAKER) (test code = 412) 15.7 % 11.7-14.4 H PLATELET COUNT (BEAKER) (raisa t code = 756) 432 K/CU MM 150-450 MEAN PLATELET VOLUME (BEAKER ) (test code = 754) 8.0 fL 9.4-12.3 L NUCLEATED RED BLOOD CELLS (BEAKER) (test code = 413) 0 /100 WBC 0-0 NEUTROPHILS RELATIVE PERCENT (BEAKER) (test code = 429) 73 % LYMPHOCYTES RELATIVE PERCENT (BEAKER) (test code = 430) 18 % MONOCYTES RELATIVE PERCENT (BEAKER) (test code = 431) 7 % EOSINOPHILS RELATIVE PERCENT (BEAKER) (test code = 432) 0 % BASOPHILS RELATIVE PERCENT (BEAKER) (test code = 437) 1 % NEUTROPHILS ABSOLUTE COUNT (BEAKER) (test code = 670) 6.62 K/ L 1.56-6.13 H LYMPHOCYTES ABSOLUTE COUNT (BEAKER) (test code = 414) 1.65 K/ L 1.18-3.74 MONOCYTES ABSOLUTE COUNT (BE BRDIGER) (test code = 415) 0.62 K/ L 0.24-0.36 H EOSINOPHILS ABSOLUTE COUNT (BEAKER) (test code = 416) 0.04 K/ L 0.04-0.36 BASOPHILS ABSOLUTE COUNT (BE BRIDGER) (test code = 417) 0.05 K/ L 0.01-0.08 IMMATURE GRANULOCYTES-RELATI VE PERCENT (BEAKER) (test code = 2801) 0.60 % 0.00-1.00 XR spine cervical 2 or 3 [id number] 20:24:23TECHNIQUE: Frontal and lateral views of the cervical spine. INDICATION: Postop Standing Films. COMPARISON: None.[facility] CenterXR SPINE CERVICAL 2 OR 3 [id number] 20:24:23[facility] : 1970 Sex: FTECHNIQUE: Frontal and lateral views of the cervical spine.INDICATION: Postop Standing Films.COMPAR ANNTETE: None.IMPRESSION:C7 is not well seen on lateral view. Status post C3-C4 ACDF with alignedhardware. Prior C4-C7 ACDF with interbody osseous fusion with intacthardware. No acute fracture or malalignment. Prevertebral soft swellingcompatible with recent postsurgical changes. There is a calcifiedgr anuloma at the left lung apex.Electronically Signed By: Zachariah Garcia05/28/2023 20:26 CDTWorkstation Name: [id number] fluoro non-specific up to 1 hour 2023-05-28 11:45:16This is a non-reportable study with no Radiologist dictation. Please refer to your PACS to review images, or Doc Flowsheets for documentation on studies without images.[facility] CenterFL FLUORO NON-SPECIFIC UP TO 1 [id number] 11:45:16 [facility] : 1970 Sex: FThis is a non- reportable study with no Radiologist dictation. Please refer to your PACS to review images, or Doc Flowsheets for documentation on studies without images.FL FLUORO NON-SPECIFIC UP TO 1 [id number] 10:13:02 [facility] : 1970 Sex: FTECHNIQUE: 1 lateral fluoroscopic image of the cervical spine forlocalization.Fluoroscopic time: 3second(s).FINDINGS:The surgical pointer is at C3-C4.The findings were discussed with Dr. Garcia in theOR who concurred withthe findings.IMPRESSION:Intraoperative localization plain film as described abo ve.Electronically Signed By: Derik Reyez05/28/2023 10:15 CDTWorkstation Name: [id number] Chavez, [id number] 08:21:03* Test Item Value Reference Range Interpretation Comme nts GONADOTROPIN, CHORIONIC (HCG ) QUANT (BEAKER) (test code = 649) < mIU/mL 0-10 Non- Females: <10 mIU/mL Females: Gestation Age Reference Range(mIU/mL) 0.2-1 Week 5-50 1-2 Weeks 50-500 2-3 Weeks 100-5,000 3-4 Weeks 500-10,000 4-5 Weeks 1,000-50,000 5-6 Weeks 10,000-100,000 6-8 Weeks 15,000- 200,000 2-3 Months 10,000-100,000 Technical Support Manager ID - ADMINCULTURE, [id number] 09:28:30SPECIMEN NUMBER: [id number] CULTURE, URINE SPECIMEN NUMBER: [id number] SPECIMEN COMMENT: URINE SOURCE: URINE REPORT STATUS: FINAL FINAL REPORT: 05/15/2023 >100,000 CFU/ML UROGENITAL REBEL PRESENT NOCOMMON PATHOGENS UNLESS OTHERWISE INDICATED, ALL TESTING PERFORMED AT [facility] [address] [place] [address] PROTOTYPE FABRICATOR: JANNY STEINER M.D. CLIA NUMBER [id number] [facility] [place]. [id number], [id number] 12:02:50SPECIMEN NUMBER: [id number] CULTURE, URINE SPECIMEN NUMBER: [id number] SOURCE: URINE REPORT STATUS: FINAL FINAL REPORT: 05/13/2023 NO SPECIMEN RECEIVED FOR TESTING. CHARGES DELETED.BASIC METABOLIC [id number] 04:48:43* Test Item Value Reference Range Interpretation Comme nts GLUCOSE (test code = 2217) 117 MG/DL 70-99 H BUN (test code = 2208) 20 MG/DL 6-20 CREATININE (test code = 2214) 0.83 MG/DL 0.60-1.30 eGFR (2020 CKD-EPI) (test co de = 94584) 85 ML/MIN/1.73 >60 SODIUM (test code = 2231) 141 MEQ/L 133-146 POTASSIUM (test code = 2228) 3.6 MEQ/L 3.5-5.4 CHLORIDE (test code = 2215) 97 MEQ/L 95-107 CARBON DIOXIDE (test code = 2206) 26 MEQ/L 19-31 CALCIUM (test code = 2209) 10.4 MG/DL 8.5-10.5 PROTHROMBIN TIME (PT)2023-05-09 02:52:41* Test Item Value Reference Range Interpretation Comme nts PROTHROMBIN TIME (PT) (test code = 1402) 12.7 SECONDS 12.5-14.7 INR (test code = 10966) 0.9 SEE BELOW CURRENT RECOMMENDATIONS ARE FOR AN INR OF 2.0-3.0 FOR ALL PATIENTS ON VITAMIN K ANTAGONISTS, EXCEPT THOSE WITH PROSTHETIC HEART VALVES, FOR WHOM INR OF 2.5-3.5 IS RECOMMENDED. UNLESS OTHERWISE INDICATED, ALL TESTING PERFORMED AT [facility] [address] [place] [address] PROTOTYPE FABRICATOR: JANNY STEINER M.D. CLIA NUMBER [id number] [facility] [place]. [id number] CBC W/AUTO DIFF WITH [id number] 01:54:17* Test Item Value Reference Range Interpretation Comme nts WBC (test code = 1001) 13.4 K/UL 3.5-11.0 H RBC (test code = 1002) 5.38 M/UL 3.80-5.40 HEMOGLOBIN (test code = 1003) 15.5 G/DL 11.5-15.5 HEMATOCRIT (test code = 1004) 48.0 % 34.0-45.0 H MCV (test code = 1005) 89.2 fL 80.0-99.0 MCH (test code = 1006) 28.8 PG 25.0-33.0 MCHC (test code = 1007) 32.3 G/DL 31.0-36.0 RDW (test code = 1038) 16.8 % 11.5-15.0 H NEUTROPHILS (test code = 1008) 81.7 % LYMPHOCYTES (test code = 1010) 10.8 % MONOCYTES (test code = 1011) 5.9 % EOSINOPHILS (test code = 1012) 0.2 % BASOPHILS (test code = 1013) 0.3 % IMMATURE GRANULOCYTES (test code = 1036) 1.1 % NUCLEATED RBCS (test code = 1065) 0.0 /100 WBC'S See_Comment [Automated messa ge] The system which generated this result transmitted reference range: 0.0. The reference range was not used to interpret this result as normal/abnormal. PLATELET COUNT (test code = 1015) 523 K/UL 130-400 H ABSOLUTE NEUTROPHILS (test code = 1066) 10.92 K/UL 1.50-7.50 H ABSOLUTE LYMPHOCYTES (test code = 1067) 1.45 K/UL 1.00-4.00 ABSOLUTE MONOCYTES (test code = 1068) 0.79 K/UL 0.20-1.00 ABSOLUTE EOSINOPHILS (test code = 1040) 0.03 K/UL 0.00-0.50 ABSOLUTE BASOPHILS (test code = 1069) 0.04 K/UL 0.00-0.20 ABS IMMATURE GRANULOCYTES (test code = 1020) 0.15 K/UL 0.00-0.10 H ABS NUCLEATED RBCS (test code = 81499) 0.00 K/UL 0.00-0.11 ECG 12 [id number] 14:02:48Ventricular Rate 102 BPMAtrial Rate 102 BPMP-R Interval 146 msQRS Duration 90 msQ-T Interval 372 msQTC Calculation(Bazett) 484 msP [place] 11 degreesR [place] -53 degreesT [place] 29 degrees Sinus tachycardiaPossible Left atrial enlargementLeft axis deviationPoor R wave progression Cannot rule out Anterior infarct , age undetermined vs lead misplacementNonspecific T wave abnormalityProlonged QTAbnormal ECGNo previous ECGs availableConfirmed by David GARCIA BASANT ([id number]) on 04/06/2023 2:02:46 [facility] W CONTRAST & [id number] 13:11:39Transthoracic Echocardiography Report (TTE) Demographics Patient Name YUE LAWS Date of Study 03/31/2023 ESETLLE Gender Female Visit Number [id number] Race Room Number 2227 Number Date of 1970 Referring Physician Mariah Aldridge MD Age 53 year(s) Billposting Supervisor Wilmer Francois Discovery Guide Josefina Corbett, [facility] Interpreting John Solorio Physician MDProcedure Type of Study TTE procedure:2DECHO W [...] range) . Previous Study No prior studies available for comparison. Signature FindingsTechnical Quality: Technically difficult exam. Left Ventricle LV endocardium is adequately visualized with IV ultrasound enhancing agent. The left ventricle chamber size (by vol [...] not well visualized. A trace of tricuspid regurgitation.Estimated peak systolic PA pressure is 30-35 mmHg [...] 31.3 % LVEDVI: 79 ml/m^2 LVESVI: 54 ml/m^2LVOT Diameter: 2.19 cm Right Ventricle RVOT VTI: 10.69 cmAorta Ao Root S of Rosangela.: 3.08 cmDoppler/Panchito ntitative Measurements Mitral Valve MV Peak E-Wave: 1.24 m/s MV Peak A-Wave: 0.94 m/s E/A Ratio: 1.32 Peak Gradient: 6.11 mmHg Deceleration Time: 162.8 msec MV Evette. Peak: Tissue Doppler E' Septal Velocity: 0.06 m/s E/E': 19.74 E' Lateral Velocity: 0.06 m/s Aortic Valve Peak Velocity: 1.43 m/s MeanVelocity: 1.03 m/s Peak Gradient: 8.22 mmHg Mean [...] Peak Velocity: 0.74 m/s Peak Gradient: 2.22 mmHgAlvarado Hospital Medical CenterXR chest 1 view portable / [id number] 15:39:07TECHNIQUE: Frontal view of the chest. INDICATION: CHf. COMPARISON: None. FINDINGS: LINES/TUBES: None. HEART AND MEDIASTINUM: Cardiomediastinal contour is within normallimits. LUNGS: The lungs are well inflated and clear. No consolidation orpulmonary edema. PLEURA: No pneumothorax. No significant pleural effusion. SOFT TISSUES AND BONES: Cervical spinal fixation hardware is noted.[facility] CenterXR CHEST 1 VIEW PORTABLE / [id number] 15:39:07 [facility] : 1970 Sex: FTECHNIQUE: Frontal view of the chest.INDICATION: CHf.COMPARISON: None.FINDINGS:LINES/TUBES: None.HE ART AND MEDIASTINUM: Cardiomediastinal contour is within normallimits. LUNGS: The lungs are well inflated and clear. No consolidation orpulmonary edema.PLEURA: No pneumothorax. No significant pleuraleffusion.SOFT TISSUES AND BONES: Cervical spinal fixation hardware is noted.IMPRESSION:No acute card iopulmonary process.Electronically Signed By: Jose Carlos Del Realzelman04/01/2023 15:41 CDTWorkstation Name: [id number] NATRIURETIC FACTOR (BNP)2023-04-01 14:15:07* Test Item Value Reference Range Interpretation Comme nts B-TYPE NATRIURETIC PEPTIDE ( LATOYA) (test code = 700) 192 pg/mL 0-100 H Technical Support Manager ID - ADMINMR spine cervical without IV [id number] 11:30:35MRI cervical spine without contrast CLINICAL HISTORY: Cervical radiculopathy, no red flags TECHNIQUE: Multiplanar, multisequence noncontrast MRI of the cervicalspine was performed. COMPARISON: None available. FINDINGS: Vertebral body height and alignment is within normal limits. The bonemarrow signal is normal. Postoperative changes from C4-C7 anterior cervical fusion. The craniocervical junctionand visualized intracranial compartment areunremarkable. T2/STIR hyperintensity seen within the cervical cord at [...] nonspecific focal STIR hyperintensity at the posterior discspace. C5-C6: No significant spinal canal or neural foraminal stenosis. C6- C7: No significant spinal canal or neural foraminal stenosis. C7-T1: Facet arthropathy with moderate to severe left neural foraminalstenosis. The prevertebral and paraspinal soft tissues are within normal limits.[facility] CenterMR CERVICAL SPINE WITHOUT IV [id number] 11:30:35 [facility] EUSEBIAGRACIELA MCCABE : 1970 Sex: FMRI cervical spine without contrastCLINICAL HISTORY: Cervical radiculopathy, no red flagsTECHNIQUE: Multiplanar, multisequence noncontrast MRI of the cervicalspine was performed.COMPARISON: None available.FINDINGS:Vertebral body height and alignment is within normal limits. The bonemarrow signal is normal.Postoperative changes from C4-C7 anterior cervical fusion.The craniocervical junction and vi sualized intracranial compartment areunremarkable.T2/STIR hyperintensity seen within the [...] foraminal stenosis at C7-T1.3. Postoperative changes from pr ior C4-C7 anterior cervical fusion.Electronically Signed By: Maxim Sultana03/31/2023 11:32 CDTWorkstation Name: [id number] METABOLIC [id number] 04:43:14* Test Item Value Reference Range Interpretation Comme nts TOTAL PROTEIN (BEAKER) (test code = 770) 6.4 gm/dL 6.0-8.3 ALBUMIN (BEAKER) (test code = 1145) 3.8 g/dL 3.5-5.0 ALKALINE PHOSPHATASE (BEAKER) (test code = 346) 66 U/L 40-150 BILIRUBIN TOTAL (BEAKER) (test code = 377) 0.3 mg/dL 0.2-1.2 SODIUM (BEAKER) (test code = 381) 139 meq/L 136-145 POTASSIUM (BEAKER) (test code = 379) 4.1 meq/L 3.5-5.1 CHLORIDE (BEAKER) (test code = 382) 104 meq/L 98-107 CO2 (BEAKER) (test code = 355) 27 meq/L 22-29 BLOOD UREA NITROGEN (BEAKER) (test code = 354) 12 mg/dL 7-21 CREATININE (BEAKER) (test code = 358) 0.77 mg/dL 0.57-1.25 GLUCOSE RANDOM (BEAKER) (test code = 652) 116 mg/dL 70-105 H CALCIUM (BEAKER) (test code = 697) 8.9 mg/dL 8.4-10.2 AST (SGOT) (BEAKER) (test code = 353) 16 U/L 5-34 ALT (SGPT) (BEAKER) (test code = 347) 14 U/L 6-55 EGFR (BEAKER) (test code = 1092) 93 mL/min/1.73 sq m Interpretation of eG FR values Stage Description Result G1 Normal or high >=90 G2 Mildly decreased 60-89 G3a Mildly to moderately 45-59 G3b Moderately to severely 30-44 G4 Severly decreased 15-29 G5 Kidney failure <15Reported eGFR is based on the CKD-EPI 2020 equation that does not use a race coefficientEstimated GFR is not as accurate as Creatinine Clearance in predicting glomerular filtration rate. Estimated GFR is not applicable for dialysis patients Technical Support Manager GEOVANNA CORREA WC (HEMOGRAM ONLY)2023-03-31 04:20:07* Test Item Value Reference Range Interpretation Comme nts WHITE BLOOD CELL COUNT (BEAK ER) (test code = 775) 8.8 K/ L 3.5-10.5 RED BLOOD CELL COUNT (BEAKER ) (test code = 761) 4.21 M/ L 3.93-5.22 HEMOGLOBIN (BEAKER) (test co de = 410) 11.5 GM/DL 11.2-15.7 HEMATOCRIT (BEAKER) (test co de = 411) 37.8 % 34.1-44.9 MEAN CORPUSCULAR VOLUME (SAGE KER) (test code = 753) 90 fL 79-95 MEAN CORPUSCULAR HEMOGLOBIN (BEAKER) (test code = 751) 27.3 pg 25.6-32.2 MEAN CORPUSCULAR HEMOGLOBIN CONC (BEAKER) (test code = 752) 30.4 GM/DL 32.2-35.5 L RED CELL DISTRIBUTION WIDTH (BEAKER) (test code = 412) 18.1 % 11.7-14.4 H PLATELET COUNT (BEAKER) (raisa t code = 756) 364 K/CU MM 150-450 MEAN PLATELET VOLUME (BEAKER ) (test code = 754) 8.3 fL 9.4-12.3 L NUCLEATED RED BLOOD CELLS (BEAKER) (test code = 413) 0 /100 WBC 0-0 Arterial doppler legs [id number] 17:44:07PV LAB - Lower Extremity Arterial Duplex Demographics Patient Name YUE LAWS Date of Study ESTELEL Age 53 Visit Number [id number] Gender Female Accession Number [id number] Date of 1970 Referring Mariah Aldridge, Room Number 2227 Physician Billposting Supervisor Yovana Akins Interpreting John Solorio, Physician FellowProcedureType of Study: Extremities Arteries: Lower Extremities Arterial Duplex, ARTERIAL DOPPLER LEGS, BILATERAL.Indications for Study:PVD.Patient Status:Routine.Study Location:Vascular Lab.Technical Quality:Adequate visualization.RiskFactorsHistory of Disease+ + + --+!Diagnosis !Date !Comments !+ + + ----+!History/Risk Factors: !03/30/2023!CHF, CVA, HTN. !+ +----- -----+ +ImpressionsRight Impression1. The common femoral, profunda femoral,superficial femoral, popliteal,posterior tibial, peroneal and anterior tibial arteries are patent withbiphasic and triphasic Doppler waveforms throughout.2. There was a <50% stenosis at the distalcommon femoral artery.3. The vessels have diffuse, calcified [...] femoral artery. There was diffuse calcified plaque throughout, bilaterally. The bilateral digits had a dusky appearance and felt cool to the touch. Signature Velocities are measured in cm/s ; Diameters are measured in cmLE Duplex Measurements Right Left + + + + + + + + + + !Location ! !PSV !EDV !Waveform ! !PSV !EDV !Waveform ! +-------- + + + + + + + + + !Mid Common Fe moral ! !153 ! !Triphasic ! !153 ! !Triphasic ! + + + + + + + + + + !Prox PFA ! !60.5 ! !Triphasic ! !80.9 ! !Triphasic ! + + + + + + + + + + !ProxSFA ! !146 ! !Triphasic ! !140 ! !Triphasic ! + + + + + + + + + + !Mid SFA ! !150 ! !Triphasic ! !144 ! !Triphasic ! +------ + + + + + + + + + !Dist SFA !!106 ! !Triphasic ! !82.1 ! !Triphasic ! + + + + + + + + + + !Prox Popliteal ! !85 ! !Triphasic ! !80.9 ! !Triphasic ! +--- + + + + + + + + + !Dist Popliteal ! !69.5 ! !Triphasic ! !70.4 ! !Triphasic ! + + + + + + + + + + !Prox AD COPY WRITER ! !32 ! !Biphasic ! !60.9 ! !Triphasic ! +- + + + + + + + + + !Mid AD COPY WRITER ! !25.9 ! !Biphasic ! !59.7 ! !Triphasic ! + + + + + + + + + + !Dist AD COPY WRITER ! !33.2 ! !Biphasic ! !37.4 ! !Biphasic ! +----- + + + + + + [...] ! !Triphasic ! !60.5 ! !Triphasic ! +------- + + + + + + + + + !Mid Peroneal ! !27.9 ! !Biphasic ! !39.8 ! !Triphasic ! + + + + + + + + + + !Dist Peroneal ! !31.6 ! !Biphasic ! !23.6 ! !Biphasic ! +--- + + + + + + + + +[facility] CenterABI's Only(Ankle/Brachial Index)2023-03-30 17:13:47PV LAB - Lower Extremity Arterial Procedure Demographics Patient Name YUE LAWS Date of Study 03/30/2023 ESTELLE Age 53 Visit Number [id number] Gender Female Accession Number [id number] Date of 1970 Referring Mariah Jasen, Room Number 2227 Physician Billposting Supervisor Yovana Akins Interpreting John Solorio, Physician FellowProcedureType of Study: Extremities Arteries: Lower Extremity Arterial Procedure, ARTERIAL (ALEISHA'S W/DOPPLER) ONLY.Indications for Study:PVD.Patient Status:Routine.Study Location:Vascular Lab.Technical Quality:Adequate visualization.Risk FactorsHistory of Disease+ + + ---+!Diagnosis !Date !Comments !+ + + -------+!History/Risk Factors: !03/30/2023!CHF, CVA, HTN. !+ +-- --------+ +ImpressionsRight Impression1. The posterior tibial and dorsalis pedis arteries are patent withtriphasic Doppler waveforms.2. The PT pressure is 106 mmHg with an ABIof .79 and the DP pressure is 102mmHg [...] and Doppler waveforms were performed bilaterally. Adequate Dopplerwaveforms were obtained. Doppler waveforms were triphasic bilaterally. The right ALEISHA's were within the moderate obstruction range. The left ALEISHA's were within the mild obstruction range. The bilateraldigits did not have adequate flow by PPG waveforms bilaterally. No TBI's were obtained. Signature Velocities are measured in cm/s ; Diameters are measured in [facility] FranciscoMR thoracic spine without IV [id number] 12:50:50MR THORACIC SPINE WITHOUT IV CONTRAST INDICATION: Unlisted Reason for ExamConcern for cord compression TECHNIQUE: Multiplanar, multisequence MR images of the thoracic spinewere obtained. Images obtained without intervenous contrast. COMPARISON: MRI lumbar spine 03/30/2023. FINDINGS: Thoracic spine:Sp inal cord is normal in caliber and signal intensity without evidenceof cord compression. Small discbulges at T3-T4, T7-8, T11-12 Flattened the ventral cord with mild spinal canal stenosis without cordsignal abnormality. T10-11 moderate right neural foraminal stenosis [id number] moderate bilateral foraminal stenosis due to facet hypertrophyand ligamentum flavum redundancy. Thoracic vertebrae maintain normal height. Mild multilevel degenerativedisc changes. No evidence of acute osseous fracture or traumaticmalalignment. No paraspinal mass. Conus medullaris terminates at L1. Redundant cauda equina partiallyimaged and further reported on MRI lumbar spine.[facility] CenterMR THORACIC SPINE WITHOUT IV [id number] 12:50:50 [facility] : 1970 Sex: FMR THORACIC [...] abnormality. T10-11 moderate right neural foraminal stenosis [id number] moderate bilateral foraminal stenosis due to facet [...] Signed By: Ryan Buckley03/30/2023 12:52 CDTWorkstation Name: [id number] spine lumbar without IV [id number] 12:33:57MR LUMBAR SPINE WITHOUT IV CONTRAST INDICATION: Unlisted Reason for ExamConcern for cord compression COMPARISON: None TECHNIQUE: Multiplanar, multisequence MR images of the lumbar spinewithout contrast. FINDINGS: For the purposes of this dictation, the 5 lowermost qirwlq-odhmztvjfzusf-nbzf vertebral bodies are labeled L1-L5.Alignment of the lumbar spine is within normal limits. Vertebral body height is maintained. Bone marrow edema is seen at the inferior L3 and superior L4 vertebralbodies and b ilateral L4 pedicles, favored to be degenerative in [...] with mild to moderatebilateral neural foraminal stenosisCH[facility] Medical CenterMR LUMBAR SPINE WITHOUT IV [id number] 12:33:57 [facility] : 1970 Sex: FMR LUMBAR SPINE WITHOUT IV CONTRASTINDICATION: Unlisted Reason for ExamConcern for cord compressionCOMPARISON: NoneTECHNIQUE: Multiplanar, multisequence MR images of the lumbar spinewithout contrast. FINDINGS: For the purposes of this dictation, the 5 lowermost nsapye-luskbogklrfyc-fhhh vertebral bodies are labeled L1- L5.Alignment of the lumbar spine is within normal limits. Vertebral body height is maintained. Bone marrow edema is seen at the inferior L3 and superior L4 vertebralbodies and bilateral L4 pedicles, favored to be degenerative in nature.Suggestion of a synovial cyst at the lkhmeP28-T13 level (series 301image eight).No spinal cord signal abnormality identified.Mild clumping/thickening of the cauda equina nerve roots, which mayrepresent arachnoiditis (series 301 image eight).No acute findings in the paraspinal soft tissues.Evaluation of the individual levels demonstrates:L1/L2: No significant canal or foraminal narrowing.L2/L3: Symmetric disc bulge and prominent epiduralfat causing moderatespinal canal stenosisL3/L4: Posterior disc osteophyte [...] neural foraminal stenosisIMPRESSION:1. Degenerative changes within the spine,as detailed above, withoutacute fracture or malalignment identified. No spinal cord compressionidentified.2. Severe degenerative spinal canal stenosis with clumping of the caudaequina nerve roots at L3-L4.3. Moderate to severe bilateral neural foraminal stenosis at L3-L4 andL4-L5.4. Moderate to severely degenerated disc with endplate irregularity atL4-L5.5. Degenerative bone marrow edema at the L3- L4 level.6. Ligament of flavum buckling versus synovial cyst at the wpxdmT90-W38 level (series 301image eight). MRI thoracic spine can beconsidered for further evaluation.7. Mild clumping of the cauda equina nerve roots, which is nonspecificbut may represent arachnoiditis. Postcontrast imaging can be consideredfor further evaluation.Electronically Signed By: Maxim Sultana03/30/2023 12:36 CDTWorkstation Name: [id number] 11:45:01* Test Item Value Reference Range Interpretation Comme nts HEMOGLOBIN A1C ELECTROPHORESIS (AKER) (test code = 3811) 5.7 % See_Comment H [Automated me ssage] The system which generated this result transmitted reference range: <=5.6%. The reference range was not used to interpret this result as normal/abnormal. "The A1c is measured using a NGSP-certified method. HbA1c value equal to or greater than 6.5% as the diagnosis cutoff for diabetes. An HbA1c value of 5.7- 6.4% indicates increased risk for diabetes (prediabetes)."Technical Support Manager ID - ADMEEG AWAKE AND [id number] 09:57:53Steph Martinez MD 03/30/2023 9:[address] [facility] Type: Inpatient, outpatient, EMUDATE(s) OF EE03/30/23DATE OF REPORT: 03/30/23MRN: [id number] of : [id number]-[id number] time: 08:36Stop time: 09:23ICD-10: R56.9 CPT Code: 28584 (awake and asleep)HISTORY: 53 y/o female with pmhx: HTN,HF,COPD, chronic [...] sleep was reached characterized by symmetric sleep spindlesand K- complexes. Slowing: None Attenuation: None Epileptiform, rhythmic or periodic patterns: None Seizures or clinical events: None HV: Hyperventilation was not performed. PHOTIC STIMULATION: Photicstimulation was done from 1-33 Hz; no photic driving was seen; photoparoxysmal responses were absent. ELECTROCARDIOGRAM: Normal Sinus Rhythm IMPRESSION: Normal Awake and Asleep EEG CLINICAL CORRELATION: This is a normal awake and asleep EEG. No areas of focal dysfunction or epileptiform discharges were seen. An EEG without epileptiform discharges does not exclude the possibility of epilepsy. If the clinical suspicion of epilepsy remains, consider additional EEG recordings. Steph Elias MD, MPHNeurophysiology/Epilepsy AttendingCH[facility] Center EEG AWAKE AND [id number] 09:57:53Steph Martinez MD 03/30/2023 9:[address] Type: Inpatient, outpatient, EMUDATE(s) OF EE03/30/23DATE OF REPORT: 03/30/23MRN: [id number] of : [id number]-1454Start time: 08:36Stop time: 09:23ICD-10: R56.9 CPT Code: 97440 (awake and asleep)HISTORY: 53 y/o female with pmhx: HTN,HF,COPD, chronic [...] sleep was reached characterized by symmetric sleep spindlesand K- complexes. Slowing: None Attenuation: None Epileptiform, rhythmic or periodic patterns: None Seizures or clinical events: None HV: Hyperventilation was not performed. PHOTIC STIMULATION: Photicstimulation was done from 1-33 Hz; no photic driving was seen; photoparoxysmal responses were absent. ELECTROCARDIOGRAM: Normal Sinus Rhythm IMPRESSION: Normal Awake and Asleep EEG CLINICAL CORRELATION: This is a normal awake and asleep EEG. No areas of focal dysfunction or epileptiform discharges were seen. An EEG without epileptiform discharges does not exclude the possibility of epilepsy. If the clinical suspicion of epilepsy remains, consider additional EEG recordings. Steph Elias MD, MPHNeurophysiology/Epilepsy AttendingCHI Hollywood [facility] EEG AWAKE AND [id number] 09:57:53Steph Martinez MD 03/30/2023 9:[address] EEG Type: Inpatient, outpatient, EMUDATE(s) OF EE03/30/23DATE OF REPORT: 03/30/23MRN: [id number] of : [id number] time: 08:36Stop time: 09:23ICD-10: R56.9 CPT Code: 08350 (awake and asleep)HISTORY: 53 y/o female with pmhx: HTN,HF,COPD, chronic [...] sleep was reached characterized by symmetric sleep spindlesand K- complexes. Slowing: None Attenuation: None Epileptiform, rhythmic or periodic patterns: None Seizures or clinical events: None HV: Hyperventilation was not performed. PHOTIC STIMULATION: Photicstimulation was done from 1-33 Hz; no photic driving was seen; photoparoxysmal responses were absent. ELECTROCARDIOGRAM: Normal Sinus Rhythm IMPRESSION: Normal Awake and Asleep EEG CLINICAL CORRELATION: This is a normal awake and asleep EEG. No areas of focal dysfunction or epileptiform discharges were seen. An EEG without epileptiform discharges does not exclude the possibility of epilepsy. If the clinical suspicion of epilepsy remains, consider additional EEG recordings. Steph Elias MD, MPHNeurophysiology/Epilepsy AttendingCHI [facility] VALPROIC ACID LEVEL, [id number] 09:42:31* Test Item Value Reference Range Interpretation Comme nts VALPROIC ACID TOTAL (BEAKER) (test code = 924) 76 ug/mL 50-100 Therapeutic range for some clinical conditions may be >100 ug/mLUrinalysis w/Microscopic + Reflex to [id number] 08:43:51* Test Item Value Reference Range Interpretation Comme nts Color, UA (test code = 5778-6) Yellow Clarity, UA (test code = 5767-9) Clear Specific [place], UA (test code = 5811-5) 1.033 1.001-1.035 pH, UA (test code = 5803-2) 6.0 5.0-8.0 Protein, UA (test code = 70509-2) 30 mg/dL Negative A Glucose, UA (test code = 365) Negative Negative Ketones, UA (test code = 2514-8) Negative Negative Bilirubin, UA (test code = 54850-5) Negative Negative Blood, UA (test code = 66768-5) Small Negative A Nitrite, UA (test code = 5802-4) Negative Negative Leukocytes, UA (test code = 5799-2) Negative Negative Urobilinogen, UA (test code = 17591-1) 0.2 0.2-1.0 RBC, UA (test code = 15923-7) 51 See_Comment [Automated message] The system which generated this result transmitted reference range: /HPF. The reference range was not used to interpret this result as normal/abnormal. WBC, UA (test code = 5821-4) 1 See_Comment [Automated message] The system which generated this result transmitted reference range: /HPF. The reference range was not used to interpret this result as normal/abnormal. Mucus (test code = 8247-9) Occasional Squam Epithel, UA (test code = 90686-3) See_Comment [Automated message] The system which generated this result transmitted reference range: /HPF. The reference range was not used to interpret this result as normal/abnormal. Specimen Source (test code = 2795) LYNDSAY (test code = LYNDSAY) Technical Support Manager ID - [auto]Technical Support Manager ID - tech Lab Interpretation (test code = 37606-3) [facility]normal [facility]scopic + Reflex to Culture 2023-03-30 08:43:51* Test Item Value Reference Range Interpretation Comme nts Color, UA (test code = 5778-6) Yellow Clarity, UA (test code = 5767-9) Clear Specific [place], UA (test code = 5811-5) 1.033 1.001-1.035 pH, UA (test code = 5803-2) 6.0 5.0-8.0 Protein, UA (test code = 63207-6) 30 mg/dL Negative A Glucose, UA (test code = 365) Negative Negative Ketones, UA (test code = 2514-8) Negative Negative Bilirubin, UA (test code = 86355-4) Negative Negative Blood, UA (test code = 00522-9) Small Negative A Nitrite, UA (test code = 5802-4) Negative Negative Leukocytes, UA (test code = 5799-2) Negative Negative Urobilinogen, UA (test code = 49743-9) 0.2 0.2-1.0 RBC, UA (test code = 33063-0) 51 See_Comment [Automated message] The system which generated this result transmitted reference range: /HPF. The reference range was not used to interpret this result as normal/abnormal. WBC, UA (test code = 5821-4) 1 See_Comment [Automated message] The system which generated this result transmitted reference range: /HPF. The reference range was not used to interpret this result as normal/abnormal. Mucus (test code = 8247-9) Occasional Squam Epithel, UA (test code = 18060-2) See_Comment [Automated message] The system which generated this result transmitted reference range: /HPF. The reference range was not used to interpret this result as normal/abnormal. Specimen Source (test code = 2795) LYNDSAY (test code = LYNDSAY) Technical Support Manager ID - [auto]Technical Support Manager ID - tech Lab Interpretation (test code = 42222-3) [facility] Reflex to Culture 2023-03-30 08:43:51* Test Item Value Reference Range Interpretation Comme nts Color, UA (test code = 5778-6) Yellow Clarity, UA (test code = 5767-9) Clear Specific [place], UA (test code = 5811-5) 1.033 1.001-1.035 pH, UA (test code = 5803-2) 6.0 5.0-8.0 Protein, UA (test code = 46468-7) 30 mg/dL Negative A Glucose, UA (test code = 365) Negative Negative Ketones, UA (test code = 2514-8) Negative Negative Bilirubin, UA (test code = 01569-8) Negative Negative Blood, UA (test code = 50991-7) Small Negative A Nitrite, UA (test code = 5802-4) Negative Negative Leukocytes, UA (test code = 5799-2) Negative Negative Urobilinogen, UA (test code = 77836-6) 0.2 0.2-1.0 RBC, UA (test code = 08166-0) 51 See_Comment [Automated message] The system which generated this result transmitted reference range: /HPF. The reference range was not used to interpret this result as normal/abnormal. WBC, UA (test code = 5821-4) 1 See_Comment [Automated message] The system which generated this result transmitted reference range: /HPF. The reference range was not used to interpret this result as normal/abnormal. Mucus (test code = 8247-9) Occasional Squam Epithel, UA (test code = 46002-7) See_Comment [Automated message] The system which generated this result transmitted reference range: /HPF. The reference range was not used to interpret this result as normal/abnormal. Specimen Source (test code = 2795) LYNDSAY (test code = LYNDSAY) Technical Support Manager ID - [auto]Technical Support Manager ID - tech Lab Interpretation (test code = 85865-8) [facility] + Reflex to Culture 2023-03-30 08:43:51* Test Item Value Reference Range Interpretation Comme nts Color, UA (test code = 5778-6) Yellow Clarity, UA (test code = 5767-9) Clear Specific [place], UA (test code = 5811-5) 1.033 1.001-1.035 pH, UA (test code = 5803-2) 6.0 5.0-8.0 Protein, UA (test code = 26101-8) 30 mg/dL Negative A Glucose, UA (test code = 365) Negative Negative Ketones, UA (test code = 2514-8) Negative Negative Bilirubin, UA (test code = 59535-0) Negative Negative Blood, UA (test code = 41486-9) Small Negative A Nitrite, UA (test code = 5802-4) Negative Negative Leukocytes, UA (test code = 5799-2) Negative Negative Urobilinogen, UA (test code = 50180-2) 0.2 0.2-1.0 RBC, UA (test code = 69530-2) 51 See_Comment [Automated message] The system which generated this result transmitted reference range: /HPF. The reference range was not used to interpret this result as normal/abnormal. WBC, UA (test code = 5821-4) 1 See_Comment [Automated message] The system which generated this result transmitted reference range: /HPF. The reference range was not used to interpret this result as normal/abnormal. Mucus (test code = 8247-9) Occasional Squam Epithel, UA (test code = 33884-5) See_Comment [Automated message] The system which generated this result transmitted reference range: /HPF. The reference range was not used to interpret this result as normal/abnormal. Specimen Source (test code = 2795) LYNDSAY (test code = LYNDSAY) Technical Support Manager ID - [auto]Technical Support Manager ID - tech Lab Interpretation (test code = 89161-7) [facility] + Reflex to Culture 2023-03-30 08:43:51* Test Item Value Reference Range Interpretation Comme nts Color, UA (test code = 5778-6) Yellow Clarity, UA (test code = 5767-9) Clear Specific [place], UA (test code = 5811-5) 1.033 1.001-1.035 pH, UA (test code = 5803-2) 6.0 5.0-8.0 Protein, UA (test code = 40088-0) 30 mg/dL Negative A Glucose, UA (test code = 365) Negative Negative Ketones, UA (test code = 2514-8) Negative Negative Bilirubin, UA (test code = 75626-6) Negative Negative Blood, UA (test code = 79719-5) Small Negative A Nitrite, UA (test code = 5802-4) Negative Negative Leukocytes, UA (test code = 5799-2) Negative Negative Urobilinogen, UA (test code = 68810-2) 0.2 0.2-1.0 RBC, UA (test code = 36983-5) 51 See_Comment [Automated message] The system which generated this result transmitted reference range: /HPF. The reference range was not used to interpret this result as normal/abnormal. WBC, UA (test code = 5821-4) 1 See_Comment [Automated message] The system which generated this result transmitted reference range: /HPF. The reference range was not used to interpret this result as normal/abnormal. Mucus (test code = 8247-9) Occasional Squam Epithel, UA (test code = 85002-6) See_Comment [Automated message] The system which generated this result transmitted reference range: /HPF. The reference range was not used to interpret this result as normal/abnormal. Specimen Source (test code = 2795) LYNDSAY (test code = LYNDSAY) Technical Support Manager ID - [auto]Technical Support Manager ID - tech Lab Interpretation (test code = 45507-7) [facility] + Reflex to Culture 2023-03-30 08:43:51* Test Item Value Reference Range Interpretation Comme nts Color, UA (test code = 5778-6) Yellow Clarity, UA (test code = 5767-9) Clear Specific [place], UA (test code = 5811-5) 1.033 1.001-1.035 pH, UA (test code = 5803-2) 6.0 5.0-8.0 Protein, UA (test code = 50099-5) 30 mg/dL Negative A Glucose, UA (test code = 365) Negative Negative Ketones, UA (test code = 2514-8) Negative Negative Bilirubin, UA (test code = 12151-9) Negative Negative Blood, UA (test code = 43943-1) Small Negative A Nitrite, UA (test code = 5802-4) Negative Negative Leukocytes, UA (test code = 5799-2) Negative Negative Urobilinogen, UA (test code = 48427-8) 0.2 0.2-1.0 RBC, UA (test code = 19767-4) 51 See_Comment [Automated message] The system which generated this result transmitted reference range: /HPF. The reference range was not used to interpret this result as normal/abnormal. WBC, UA (test code = 5821-4) 1 See_Comment [Automated message] The system which generated this result transmitted reference range: /HPF. The reference range was not used to interpret this result as normal/abnormal. Mucus (test code = 8247-9) Occasional Squam Epithel, UA (test code = 97816-5) See_Comment [Automated message] The system which generated this result transmitted reference range: /HPF. The reference range was not used to interpret this result as normal/abnormal. Specimen Source (test code = 2795) LYNDSAY (test code = LYNDSAY) Technical Support Manager ID - [auto]Technical Support Manager ID - tech Lab Interpretation (test code = 98727-1) [facility] + Reflex to Culture 2023-03-30 08:43:51* Test Item Value Reference Range Interpretation Comme nts Color, UA (test code = 5778-6) Yellow Clarity, UA (test code = 5767-9) Clear Specific [place], UA (test code = 5811-5) 1.033 1.001-1.035 pH, UA (test code = 5803-2) 6.0 5.0-8.0 Protein, UA (test code = 96135-3) 30 mg/dL Negative A Glucose, UA (test code = 365) Negative Negative Ketones, UA (test code = 2514-8) Negative Negative Bilirubin, UA (test code = 04313-7) Negative Negative Blood, UA (test code = 88254-9) Small Negative A Nitrite, UA (test code = 5802-4) Negative Negative Leukocytes, UA (test code = 5799-2) Negative Negative Urobilinogen, UA (test code = 65207-9) 0.2 0.2-1.0 RBC, UA (test code = 11354-2) 51 See_Comment [Automated message] The system which generated this result transmitted reference range: /HPF. The reference range was not used to interpret this result as normal/abnormal. WBC, UA (test code = 5821-4) 1 See_Comment [Automated message] The system which generated this result transmitted reference range: /HPF. The reference range was not used to interpret this result as normal/abnormal. Mucus (test code = 8247-9) Occasional Squam Epithel, UA (test code = 27349-1) See_Comment [Automated message] The system which generated this result transmitted reference range: /HPF. The reference range was not used to interpret this result as normal/abnormal. Specimen Source (test code = 2795) LYNDSAY (test code = LYNDSAY) Technical Support Manager ID - [auto]Technical Support Manager ID - tech Lab Interpretation (test code = 91934-7) [facility]normal [facility] + Reflex to Culture 2023-03-30 08:43:51* Test Item Value Reference Range Interpretation Comme nts Color, UA (test code = 5778-6) Yellow Clarity, UA (test code = 5767-9) Clear Specific [place], UA (test code = 5811-5) 1.033 1.001-1.035 pH, UA (test code = 5803-2) 6.0 5.0-8.0 Protein, UA (test code = 99932-5) 30 mg/dL Negative A Glucose, UA (test code = 365) Negative Negative Ketones, UA (test code = 2514-8) Negative Negative Bilirubin, UA (test code = 82323-5) Negative Negative Blood, UA (test code = 81378-5) Small Negative A Nitrite, UA (test code = 5802-4) Negative Negative Leukocytes, UA (test code = 5799-2) Negative Negative Urobilinogen, UA (test code = 08454-5) 0.2 0.2-1.0 RBC, UA (test code = 51250-6) 51 See_Comment [Automated message] The system which generated this result transmitted reference range: /HPF. The reference range was not used to interpret this result as normal/abnormal. WBC, UA (test code = 5821-4) 1 See_Comment [Automated message] The system which generated this result transmitted reference range: /HPF. The reference range was not used to interpret this result as normal/abnormal. Mucus (test code = 8247-9) Occasional Squam Epithel, UA (test code = 36772-6) See_Comment [Automated message] The system which generated this result transmitted reference range: /HPF. The reference range was not used to interpret this result as normal/abnormal. Specimen Source (test code = 2795) LYNDSAY (test code = LYNDSAY) Technical Support Manager ID - [auto]Technical Support Manager ID - tech Lab Interpretation (test code = 16185-1) [facility]normal [facility] + Reflex to Culture 2023-03-30 08:43:51* Test Item Value Reference Range Interpretation Comme nts Color, UA (test code = 5778-6) Yellow Clarity, UA (test code = 5767-9) Clear Specific [place], UA (test code = 5811-5) 1.033 1.001-1.035 pH, UA (test code = 5803-2) 6.0 5.0-8.0 Protein, UA (test code = 68125-5) 30 mg/dL Negative A Glucose, UA (test code = 365) Negative Negative Ketones, UA (test code = 2514-8) Negative Negative Bilirubin, UA (test code = 54892-0) Negative Negative Blood, UA (test code = 77001-9) Small Negative A Nitrite, UA (test code = 5802-4) Negative Negative Leukocytes, UA (test code = 5799-2) Negative Negative Urobilinogen, UA (test code = 09862-1) 0.2 0.2-1.0 RBC, UA (test code = 14436-6) 51 See_Comment [Automated message] The system which generated this result transmitted reference range: /HPF. The reference range was not used to interpret this result as normal/abnormal. WBC, UA (test code = 5821-4) 1 See_Comment [Automated message] The system which generated this result transmitted reference range: /HPF. The reference range was not used to interpret this result as normal/abnormal. Mucus (test code = 8247-9) Occasional Squam Epithel, UA (test code = 85224-2) See_Comment [Automated message] The system which generated this result transmitted reference range: /HPF. The reference range was not used to interpret this result as normal/abnormal. Specimen Source (test code = 2795) LYNDSAY (test code = LYNDSAY) Technical Support Manager ID - [auto]Technical Support Manager ID - tech Lab Interpretation (test code = 41698-2) [facility]normal [facility] + Reflex to Culture 2023-03-30 08:43:51* Test Item Value Reference Range Interpretation Comme nts Color, UA (test code = 5778-6) Yellow Clarity, UA (test code = 5767-9) Clear Specific [place], UA (test code = 5811-5) 1.033 1.001-1.035 pH, UA (test code = 5803-2) 6.0 5.0-8.0 Protein, UA (test code = 45130-9) 30 mg/dL Negative A Glucose, UA (test code = 365) Negative Negative Ketones, UA (test code = 2514-8) Negative Negative Bilirubin, UA (test code = 55961-0) Negative Negative Blood, UA (test code = 88423-8) Small Negative A Nitrite, UA (test code = 5802-4) Negative Negative Leukocytes, UA (test code = 5799-2) Negative Negative Urobilinogen, UA (test code = 64984-7) 0.2 0.2-1.0 RBC, UA (test code = 09485-8) 51 See_Comment [Automated message] The system which generated this result transmitted reference range: /HPF. The reference range was not used to interpret this result as normal/abnormal. WBC, UA (test code = 5821-4) 1 See_Comment [Automated message] The system which generated this result transmitted reference range: /HPF. The reference range was not used to interpret this result as normal/abnormal. Mucus (test code = 8247-9) Occasional Squam Epithel, UA (test code = 03780-4) See_Comment [Automated message] The system which generated this result transmitted reference range: /HPF. The reference range was not used to interpret this result as normal/abnormal. Specimen Source (test code = 2795) LYNDSAY (test code = LYNDSAY) Technical Support Manager ID - [auto]Technical Support Manager ID - tech Lab Interpretation (test code = 05137-9) [facility] Reflex to Culture 2023-03-30 08:43:51* Test Item Value Reference Range Interpretation Comme nts Color, UA (test code = 5778-6) Yellow Clarity, UA (test code = 5767-9) Clear Specific [place], UA (test code = 5811-5) 1.033 1.001-1.035 pH, UA (test code = 5803-2) 6.0 5.0-8.0 Protein, UA (test code = 98518-6) 30 mg/dL Negative A Glucose, UA (test code = 365) Negative Negative Ketones, UA (test code = 2514-8) Negative Negative Bilirubin, UA (test code = 64307-2) Negative Negative Blood, UA (test code = 85005-6) Small Negative A Nitrite, UA (test code = 5802-4) Negative Negative Leukocytes, UA (test code = 5799-2) Negative Negative Urobilinogen, UA (test code = 77130-0) 0.2 0.2-1.0 RBC, UA (test code = 51760-2) 51 See_Comment [Automated message] The system which generated this result transmitted reference range: /HPF. The reference range was not used to interpret this result as normal/abnormal. WBC, UA (test code = 5821-4) 1 See_Comment [Automated message] The system which generated this result transmitted reference range: /HPF. The reference range was not used to interpret this result as normal/abnormal. Mucus (test code = 8247-9) Occasional Squam Epithel, UA (test code = 64130-3) See_Comment [Automated message] The system which generated this result transmitted reference range: /HPF. The reference range was not used to interpret this result as normal/abnormal. Specimen Source (test code = 2795) LYNDSAY (test code = LYNDSAY) Technical Support Manager ID - [auto]Technical Support Manager ID - tech Lab Interpretation (test code = 80216-8) [facility] Reflex to Culture 2023-03-30 08:43:51* Test Item Value Reference Range Interpretation Comme nts Color, UA (test code = 5778-6) Yellow Clarity, UA (test code = 5767-9) Clear Specific [place], UA (test code = 5811-5) 1.033 1.001-1.035 pH, UA (test code = 5803-2) 6.0 5.0-8.0 Protein, UA (test code = 73941-1) 30 mg/dL Negative A Glucose, UA (test code = 365) Negative Negative Ketones, UA (test code = 2514-8) Negative Negative Bilirubin, UA (test code = 96025-7) Negative Negative Blood, UA (test code = 27123-5) Small Negative A Nitrite, UA (test code = 5802-4) Negative Negative Leukocytes, UA (test code = 5799-2) Negative Negative Urobilinogen, UA (test code = 33323-1) 0.2 0.2-1.0 RBC, UA (test code = 60260-3) 51 See_Comment [Automated message] The system which generated this result transmitted reference range: /HPF. The reference range was not used to interpret this result as normal/abnormal. WBC, UA (test code = 5821-4) 1 See_Comment [Automated message] The system which generated this result transmitted reference range: /HPF. The reference range was not used to interpret this result as normal/abnormal. Mucus (test code = 8247-9) Occasional Squam Epithel, UA (test code = 78391-0) See_Comment [Automated message] The system which generated this result transmitted reference range: /HPF. The reference range was not used to interpret this result as normal/abnormal. Specimen Source (test code = 2795) LYNDSAY (test code = LYNDSAY) Technical Support Manager ID - [auto]Technical Support Manager ID - tech Lab Interpretation (test code = 92074-8) [facility] Reflex to Culture 2023-03-30 08:43:51* Test Item Value Reference Range Interpretation Comme nts Color, UA (test code = 5778-6) Yellow Clarity, UA (test code = 5767-9) Clear Specific [place], UA (test code = 5811-5) 1.033 1.001-1.035 pH, UA (test code = 5803-2) 6.0 5.0-8.0 Protein, UA (test code = 36643-0) 30 mg/dL Negative A Glucose, UA (test code = 365) Negative Negative Ketones, UA (test code = 2514-8) Negative Negative Bilirubin, UA (test code = 50931-0) Negative Negative Blood, UA (test code = 10209-2) Small Negative A Nitrite, UA (test code = 5802-4) Negative Negative Leukocytes, UA (test code = 5799-2) Negative Negative Urobilinogen, UA (test code = 72065-5) 0.2 0.2-1.0 RBC, UA (test code = 41675-2) 51 See_Comment [Automated message] The system which generated this result transmitted reference range: /HPF. The reference range was not used to interpret this result as normal/abnormal. WBC, UA (test code = 5821-4) 1 See_Comment [Automated message] The system which generated this result transmitted reference range: /HPF. The reference range was not used to interpret this result as normal/abnormal. Mucus (test code = 8247-9) Occasional Squam Epithel, UA (test code = 35657-9) See_Comment [Automated message] The system which generated this result transmitted reference range: /HPF. The reference range was not used to interpret this result as normal/abnormal. Specimen Source (test code = 2795) LYNDSAY (test code = LYNDSAY) Technical Support Manager ID - [auto]Technical Support Manager ID - tech Lab Interpretation (test code = 34573-6) [facility] Reflex to Culture 2023-03-30 08:43:51* Test Item Value Reference Range Interpretation Comme nts Color, UA (test code = 5778-6) Yellow Clarity, UA (test code = 5767-9) Clear Specific [place], UA (test code = 5811-5) 1.033 1.001-1.035 pH, UA (test code = 5803-2) 6.0 5.0-8.0 Protein, UA (test code = 26262-0) 30 mg/dL Negative A Glucose, UA (test code = 365) Negative Negative Ketones, UA (test code = 2514-8) Negative Negative Bilirubin, UA (test code = 10395-3) Negative Negative Blood, UA (test code = 68672-8) Small Negative A Nitrite, UA (test code = 5802-4) Negative Negative Leukocytes, UA (test code = 5799-2) Negative Negative Urobilinogen, UA (test code = 96176-2) 0.2 0.2-1.0 RBC, UA (test code = 38403-0) 51 See_Comment [Automated message] The system which generated this result transmitted reference range: /HPF. The reference range was not used to interpret this result as normal/abnormal. WBC, UA (test code = 5821-4) 1 See_Comment [Automated message] The system which generated this result transmitted reference range: /HPF. The reference range was not used to interpret this result as normal/abnormal. Mucus (test code = 8247-9) Occasional Squam Epithel, UA (test code = 30757-6) See_Comment [Automated message] The system which generated this result transmitted reference range: /HPF. The reference range was not used to interpret this result as normal/abnormal. Specimen Source (test code = 2795) LNYDSAY (test code = LYNDSAY) Technical Support Manager ID - [auto]Technical Support Manager ID - tech Lab Interpretation (test code = 19025-2) [facility] Culture 2023-03-30 08:43:51* Test Item Value Reference Range Interpretation Comme nts Color, UA (test code = 5778-6) Yellow Clarity, UA (test code = 5767-9) Clear Specific [place], UA (test code = 5811-5) 1.033 1.001-1.035 pH, UA (test code = 5803-2) 6.0 5.0-8.0 Protein, UA (test code = 05113-4) 30 mg/dL Negative A Glucose, UA (test code = 365) Negative Negative Ketones, UA (test code = 2514-8) Negative Negative Bilirubin, UA (test code = 95102-4) Negative Negative Blood, UA (test code = 36537-9) Small Negative A Nitrite, UA (test code = 5802-4) Negative Negative Leukocytes, UA (test code = 5799-2) Negative Negative Urobilinogen, UA (test code = 14309-3) 0.2 0.2-1.0 RBC, UA (test code = 49455-9) 51 See_Comment [Automated message] The system which generated this result transmitted reference range: /HPF. The reference range was not used to interpret this result as normal/abnormal. WBC, UA (test code = 5821-4) 1 See_Comment [Automated message] The system which generated this result transmitted reference range: /HPF. The reference range was not used to interpret this result as normal/abnormal. Mucus (test code = 8247-9) Occasional Squam Epithel, UA (test code = 22733-3) See_Comment [Automated message] The system which generated this result transmitted reference range: /HPF. The reference range was not used to interpret this result as normal/abnormal. Specimen Source (test code = 2795) LYNDSAY (test code = LYNDSAY) Technical Support Manager ID - [auto]Technical Support Manager ID - tech Lab Interpretation (test code = 90160-7) [facility] UR[facility] [id number] 08:43:51 * Test Item Value Reference Range Interpretation Comme nts COLOR (BEAKER) (test code = 470) Yellow CLARITY (BEAKER) (test code = 469) Clear SPECIFIC GRAVITY UA (BEAKER) (test code = 468) 1.033 1.001-1.035 PH UA (BEAKER) (test code = 467) 6.0 5.0-8.0 PROTEIN UA (BEAKER) (test co de = 464) 30 mg/dL Negative A GLUCOSE UA (BEAKER) (test co de = 365) Negative Negative KETONES UA (BEAKER) (test co de = 371) Negative Negative BILIRUBIN UA (BEAKER) (test code = 462) Negative Negative BLOOD UA (BEAKER) (test code = 461) Small Negative A NITRITE UA (BEAKER) (test co de = 465) Negative Negative LEUKOCYTE ESTERASE UA (BEAKE R) (test code = 466) Negative Negative UROBILINOGEN UA (BEAKER) (te st code = 463) 0.2 0.2-1.0 RBC UA (BEAKER) (test code = 519) 51 /HPF WBC UA (BEAKER) (test code = 520) 1 /HPF MUCUS (BEAKER) (test code = 1574) Occasional SQUAMOUS EPITHELIAL (BEAKER) (test code = 516) < /HPF SOURCE(BEAKER) (test code = 2795) Technical Support Manager ID - [auto]Technical Support Manager ID - techCOMPREHENSIVE METABOLIC [id number] 04:37:29* Test Item Value Reference Range Interpretation Comme nts TOTAL PROTEIN (BEAKER) (test code = 770) 7.2 gm/dL 6.0-8.3 ALBUMIN (BEAKER) (test code = 1145) 4.1 g/dL 3.5-5.0 ALKALINE PHOSPHATASE (BEAKER) (test code = 346) 74 U/L 40-150 BILIRUBIN TOTAL (BEAKER) (test code = 377) 0.4 mg/dL 0.2-1.2 SODIUM (BEAKER) (test code = 381) 138 meq/L 136-145 POTASSIUM (BEAKER) (test code = 379) 3.8 meq/L 3.5-5.1 CHLORIDE (BEAKER) (test code = 382) 104 meq/L 98-107 CO2 (BEAKER) (test code = 355) 21 meq/L 22-29 L BLOOD UREA NITROGEN (BEAKER) (test code = 354) 11 mg/dL 7-21 CREATININE (BEAKER) (test code = 358) 0.77 mg/dL 0.57-1.25 GLUCOSE RANDOM (BEAKER) (test code = 652) 151 mg/dL 70-105 H CALCIUM (BEAKER) (test code = 697) 8.8 mg/dL 8.4-10.2 AST (SGOT) (BEAKER) (test code = 353) 26 U/L 5-34 ALT (SGPT) (BEAKER) (test code = 347) 18 U/L 6-55 EGFR (BEAKER) (test code = 1092) 93 mL/min/1.73 sq m Interpretation of eG FR values Stage Description Result G1 Normal or high >=90 G2 Mildly decreased 60-89 G3a Mildly to moderately 45-59 G3b Moderately to severely 30-44 G4 Severly decreased 15-29 G5 Kidney failure <15Reported eGFR is based on the CKD-EPI 2021 equation that does not use a race coefficientEstimated GFR is not as accurate as Creatinine Clearance in predicting glomerular filtration rate. Estimated GFR is not applicable for dialysis patients Technical Support Manager ID - MATT BPT/TDPF9845-76-36 04:30:17* Test Item Value Reference Range Interpretation Comme nts PROTIME (BEAKER) (test code = 759) 13.8 seconds 11.9-14.2 INR (BEAKER) (test code = 370) 1.13 See_Comment [Automated [employer]Nov[employer] ge] The system which generated this result transmitted reference range: <=5.90. The reference range was not used to interpret this result as normal/abnormal. PARTIAL THROMBOPLASTIN TIME (BEAKER) (test code = 760) 27.4 seconds 22.5-36.0 RECOMMENDED COUMADIN/WARFARIN INR THERAPY RANGESSTANDARD DOSE: 2.0 - 3.0 Includes: PROPHYLAXIS for venous thrombosis, systemic embolization; TREATMENT for venous thrombosis and/or pulmonary embolus.HIGH RISK: Target INR is 2.5-3.5 for patients with mechanical heart valves.CBC (HEMOGRAM ONLY)2023-03-30 04:13:37 * Test Item Value Reference Range Interpretation Comme nts WHITE BLOOD CELL COUNT (BEAK ER) (test code = 775) 6.8 K/ L 3.5-10.5 RED BLOOD CELL COUNT (BEAKER ) (test code = 761) 4.73 M/ L 3.93-5.22 HEMOGLOBIN (BEAKER) (test co de = 410) 12.8 GM/DL 11.2-15.7 HEMATOCRIT (BEAKER) (test co de = 411) 42.1 % 34.1-44.9 MEAN CORPUSCULAR VOLUME (SAGE KER) (test code = 753) 89 fL 79-95 MEAN CORPUSCULAR HEMOGLOBIN (BEAKER) (test code = 751) 27.1 pg 25.6-32.2 MEAN CORPUSCULAR HEMOGLOBIN CONC (BEAKER) (test code = 752) 30.4 GM/DL 32.2-35.5 L RED CELL DISTRIBUTION WIDTH (BEAKER) (test code = 412) 18.1 % 11.7-14.4 H PLATELET COUNT (BEAKER) (raisa t code = 756) 406 K/CU MM 150-450 MEAN PLATELET VOLUME (BEAKER ) (test code = 754) 8.3 fL 9.4-12.3 L NUCLEATED RED BLOOD CELLS (BEAKER) (test code = 413) 0 /100 WBC 0-0 UXC-[id number] 00:00:00Ordered by an unspecified provider.[facility] CenterEKG-[id number] 00:00:00Ordered by an unspecified provider. [facility] CenterEKG-FEQRLVY3025-15-30 00:00:00Ordered by an unspecified provider.[facility] CenterMAGNESIUM2023-05-25 17:14:06* Test Item Value Reference Range Interpretation Comme nts MAGNESIUM (test code = 8695518851) 1.9 mg/dL 1.7-2.4 Lab Interpretation (test cod e = 48457-9) Normal [facility]. METABOLIC PANEL (63948)2022-12-11 15:16:25* Test Item Value Reference Range Interpretation Comme nts NA (test code = 0594814541) 139 mmol/L 135-145 K (test code = 2645956311) 3.5 mmol/L 3.5-5.0 CL (test code = 4011989074) 107 mmol/L 98-108 CO2 TOTAL (test code = 0077478932) 24 mmol/L 23-31 AGAP (test code = 5537389159) 8 2-16 BUN (test code = 4501300262) 9 mg/dL 7-23 GLUCOSE (test code = 5269080931) 129 mg/dL 70-110 H CREATININE (test code = 9149069304) 0.68 mg/dL 0.50-1.04 TOTAL BILI (test code = 4844110281) 0.5 mg/dL 0.1-1.1 CALCIUM (test code = 3242958051) 8.9 mg/dL 8.6-10.6 T PROTEIN (test code = 4070235461) 6.3 g/dL 6.3-8.2 ALBUMIN (test code = 0891785486) 3.8 g/dL 3.5-5.0 ALK PHOS (test code = 2659483110) 87 U/L 34-122 ALTv (test code = 1742-6) 24 U/L 5-35 AST(SGOT) (test code = 5974884754) 21 U/L 13-40 eGFR (test code = 1318137821) 91.6 mL/min/1.73m2 LYNDSAY (test code = LYNDSAY) Association [...] imaging tests). Lab Interpretation (test code = 33882-1) Abnormal [facility] CampusTROPONIN [id number] 15:10:45* Test Item Value Reference Range Interpretation Comme nts TROPONIN I (test code = 8089060775) 0.015 ng/mL <=0.034 LYNDSAY (test code = LYNDSAY) Reference (Normal) [...] patient's use of biotin. Lab Interpretation (test code = 22517-2) Normal [facility] CampusN-TERMINAL YWE-[id number] 15:07:48* Test Item Value Reference Range Interpretation Comme nts NT-proBNP (test code = 1961546626) 1460 pg/mL <=125 H LYNDSAY (test code = LYNDSAY) Biotin has been reported to cause a negative bias, interpret results relative to patient's use of biotin. Lab Interpretation (test code = 95884-4) Abnormal [facility] CampusD-[id number] 14:45:24* Test Item Value Reference Range Interpretation Comments D-DIMER (test code = 7265211899) 0.99 See_Comment H [Automated message] The system which generated this result transmitted reference range: <0.41 ?g/mL (FEU). The reference range was not used to interpret this result as normal/abnormal. LYNDSAY (test code = LYNDSAY) This test may be used in conjunction with a clinical pretest [...] context, in forming a diagnosis. Lab Interpretation (test code = 57892-3) Abnormal [facility] CampusCBC WITH [id number] 14:14:48* Test Item Value Reference Range Interpretation Comme nts WBC (test code = 6690-2) 7.86 See_Comment [Automated [employer] Maimaibao] The system which generated this result transmitted reference range: 4.30 - 11.10 10*3/?L. The reference range was not used to interpret this result as normal/abnormal. RBC (test code = 789-8) 5.13 See_Comment [Automated [employer] Maimaibao] The system which generated this result transmitted reference range: 3.93 - 5.25 10*6/?L. The reference range was not used to interpret this result as normal/abnormal. HGB (test code = 718-7) 12.8 g/dL 11.6-15.0 HCT (test code = 4544-3) 41.0 % 35.7-45.2 MCV (test code = 787-2) 79.9 fL 80.6-95.5 L MCH (test code = 785-6) 25.0 pg 25.9-32.8 L MCHC (test code = 786-4) 31.2 g/dL 31.6-35.1 L RDW-SD (test code = 44968-0) 47.8 fL 39.0-49.9 RDW-CV (test code = 788-0) 16.9 % 12.0-15.5 H PLT (test code = 777-3) 507 See_Comment H [Automated messa ge] The system which generated this result transmitted reference range: 166 - 358 10*3/?L. The reference range was not used to interpret this result as normal/abnormal. MPV (test code = 84788-9) 8.2 fL 9.5-12.9 L NRBC/100 WBC (test code = 6154343338) 0.0 See_Comment [Automated [employer] ssage] The system which generated this result transmitted reference range: 0.0 - 10.0 /100 WBCs. The reference range was not used to interpret this result as normal/abnormal. NRBC x10^3 (test code = 2115586432) See_Comment [Automated messa ge] The system which generated this result transmitted reference range: 10*3/?L. The reference range was not used to interpret this result as normal/abnormal. GRAN MAT (NEUT) % (test code = 770-8) 64.5 % IMM GRAN % (test code = 9830526298) 0.30 % LYMPH % (test code = 736-9) 25.6 % MONO % (test code = 5905-5) 7.5 % EOS % (test code = 713-8) 1.0 % BASO % (test code = 706-2) 1.1 % GRAN MAT x10^3(ANC) (test code = 1861010419) 5.07 10*3/uL 1.88-7.09 IMM GRAN x10^3 (test code = 9845971764) 0.00-0.06 LYMPH x10^3 (test code = 731-0) 2.01 10*3/uL 1.32-3.29 MONO x10^3 (test code = 742-7) 0.59 10*3/uL 0.33-0.92 EOS x10^3 (test code = 711-2) 0.08 10*3/uL 0.03-0.39 BASO x10^3 (test code = 704-7) 0.09 10*3/uL 0.01-0.07 H Lab Interpretation (test code = 66453-0) Abnormal [facility] CampusRPR2023-01-17 13:17:22* Test Item Value Reference Range Interpretation Comme nts RPR SCREEN (CloudVelocity) (test co de = 420) Nonreactive Nonreactive HEMOGLOBIN [id number] 10:39:49* Test Item Value Reference Range Interpretation Comme nts HEMOGLOBIN A1C ELECTROPHORESIS (Cloud[employer]) (test code = 3811) 5.8 % See_Comment H [Automated me ssage] The system which generated this result transmitted reference range: <=5.6%. The reference range was not used to interpret this result as normal/abnormal. "The A1c is measured using a [facility]-certified method. HbA1c value equal to or greater than 6.5% as the diagnosis cutoff for diabetes. An HbA1c value of 5.7- 6.4% indicates increased risk for diabetes (prediabetes)."Technical Support Manager ID - ADM VITAMIN [id number] 22:48:27* Test Item Value Reference Range Interpretation Comme nts VITAMIN B12 (Cloud[employer]) (test c ode = 774) 227 pg/mL 213-816 Technical Support Manager ID - MARCOTSH/FREE T4 IF NTKXCAVIT2072-30-27 22:08:28* Test Item Value Reference Range Interpretation Comme nts THYROID STIMULATING HORMONE ([employer]) (test code = 772) 3.309 uIU/mL 0.350-4.940 Technical Support Manager ID - JSHIV-1 ANTIGEN WITH HIV-1/2 [id number] 22:08:28* Test Item Value Reference Range Interpretation Comme nts HIV-1 ANTIGEN WITH HIV 1\\T\\2 ANTIBODY (2) ([employer]) (test code = 2586) Nonreactive Nonreactive Technical Support Manager ID - JSC-REACTIVE URLBBKH2414-90-68 21:49:44* Test Item Value Reference Range Interpretation Comme nts C-REACTIVE PROTEIN ([employer]) (test code = 676) 0.35 mg/dL 0.00-0.50 Technical Support Manager ID - JSCOMPREHENSIVE METABOLIC [id number] 21:49:43* Test Item Value Reference Range Interpretation Comme nts TOTAL PROTEIN (BEAKER) (test code = 770) 7.1 gm/dL 6.0-8.3 ALBUMIN (BEAKER) (test code = 1145) 4.2 g/dL 3.5-5.0 ALKALINE PHOSPHATASE (BEAKER) (test code = 346) 74 U/L 40-150 BILIRUBIN TOTAL (BEAKER) (test code = 377) 0.3 mg/dL 0.2-1.2 SODIUM (BEAKER) (test code = 381) 139 meq/L 136-145 POTASSIUM (BEAKER) (test code = 379) 3.4 meq/L 3.5-5.1 L CHLORIDE (BEAKER) (test code = 382) 102 meq/L 98-107 CO2 (BEAKER) (test code = 355) 26 meq/L 22-29 BLOOD UREA NITROGEN (BEAKER) (test code = 354) 14 mg/dL 7-21 CREATININE (BEAKER) (test code = 358) 0.91 mg/dL 0.57-1.25 GLUCOSE RANDOM (BEAKER) (test code = 652) 134 mg/dL 70-105 H CALCIUM (BEAKER) (test code = 697) 8.8 mg/dL 8.4-10.2 AST (SGOT) (BEAKER) (test code = 353) 15 U/L 5-34 ALT (SGPT) (BEAKER) (test code = 347) 15 U/L 6-55 EGFR (BEAKER) (test code = 1092) 77 mL/min/1.73 sq m Interpretation of eG FR values Stage Description Result G1 Normal or high >=90 G2 Mildly decreased 60-89 G3a Mildly to moderately 45-59 G3b Moderately to severely 30-44 G4 Severly decreased 15-29 G5 Kidney failure <15Reported eGFR is based on the CKD-EPI 2020 equation that does not use a race coefficientEstimated GFR is not as accurate as Creatinine Clearance in predicting glomerular filtration rate. Estimated GFR is not applicable for dialysis patients Technical Support Manager ID - JSLIPID [id number] 21:49:43* Test Item Value Reference Range Interpretation Comme nts TRIGLYCERIDES (BEAKER) (test code = 540) 161 mg/dL CHOLESTEROL (BEAKER) (test c ode = 631) 149 mg/dL HDL CHOLESTEROL (BEAKER) (te st code = 976) 43 mg/dL LDL CHOLESTEROL CALCULATED ( BEAKER) (test code = 633) 74 mg/dL Triglyceride Reference Range: Low Risk <150 Borderline 150-199 High Risk 200-499 Very High Risk >=500Cholesterol Reference Range: Low Risk <200 Borderline 200-239 High Risk >240HDL Cholesterol Reference Range: Low Risk >=60 High Risk <40LDL Cholesterol Reference Range: Optimal <100 Near Optimal 100-129 Borderline 130-159 High 160-189 Very High >=190 Technical Support Manager ID - JSCBC W/PLT COUNT & AUTO [id number] 21:34:03* Test Item Value Reference Range Interpretation Comme nts WHITE BLOOD CELL COUNT (BEAK ER) (test code = 775) 8.4 K/ L 3.5-10.5 RED BLOOD CELL COUNT (BEAKER ) (test code = 761) 4.62 M/ L 3.93-5.22 HEMOGLOBIN (BEAKER) (test co de = 410) 11.9 GM/DL 11.2-15.7 HEMATOCRIT (BEAKER) (test co de = 411) 39.3 % 34.1-44.9 MEAN CORPUSCULAR VOLUME (SAGE KER) (test code = 753) 85 fL 79-95 MEAN CORPUSCULAR HEMOGLOBIN (BEAKER) (test code = 751) 25.8 pg 25.6-32.2 MEAN CORPUSCULAR HEMOGLOBIN CONC (BEAKER) (test code = 752) 30.3 GM/DL 32.2-35.5 L RED CELL DISTRIBUTION WIDTH (BEAKER) (test code = 412) 17.0 % 11.7-14.4 H PLATELET COUNT (BEAKER) (raisa t code = 756) 388 K/CU MM 150-450 MEAN PLATELET VOLUME (BEAKER ) (test code = 754) 8.3 fL 9.4-12.3 L NUCLEATED RED BLOOD CELLS (BEAKER) (test code = 413) 0 /100 WBC 0-0 NEUTROPHILS RELATIVE PERCENT (BEAKER) (test code = 429) 57 % LYMPHOCYTES RELATIVE PERCENT (BEAKER) (test code = 430) 34 % MONOCYTES RELATIVE PERCENT (BEAKER) (test code = 431) 8 % EOSINOPHILS RELATIVE PERCENT (BEAKER) (test code = 432) 1 % BASOPHILS RELATIVE PERCENT (BEAKER) (test code = 437) 1 % NEUTROPHILS ABSOLUTE COUNT (BEAKER) (test code = 670) 4.74 K/ L 1.56-6.13 LYMPHOCYTES ABSOLUTE COUNT (BEAKER) (test code = 414) 2.85 K/ L 1.18-3.74 MONOCYTES ABSOLUTE COUNT (BE BRIDGER) (test code = 415) 0.63 K/ L 0.24-0.36 H EOSINOPHILS ABSOLUTE COUNT (BEAKER) (test code = 416) 0.06 K/ L 0.04-0.36 BASOPHILS ABSOLUTE COUNT (BE BRIDGER) (test code = 417) 0.06 K/ L 0.01-0.08 IMMATURE GRANULOCYTES-RELATI VE PERCENT (BEAKER) (test code = 2801) 0.50 % 0.00-1.00 Transthoracic echo (TTE)2022-08-01 22:30:27* Test Item Value Reference Range Interpretation Comme nts Height (test code = 7778707664) in Weight (test code = 2503278717) lbs Systolic BP (test code = 3467091325) mmHg Diastolic BP (test code = 7806893793) mmHg Heart Rate (test code = 2841080616) bpm BSA (test code = 6638558223) 2.00 m2 Ao root diam (test code = 0515573300) 3.20 cm Aortic root (test code = 7757191252) 3.2 cm Ao root annulus (test code = 5210506736) 3.2 cm LVOT diameter (test code = 9666369579) 1.99 cm LVOT area (test code = 4155782292) 3.10 cm2 LVIDD (test code = 8778339318) 5.10 cm Left Ventricular End Diastolic Volume by Teichholz Method (test code = 6999363) 123.0 mL IVS (test code = 6982604004) 1.34 cm Interventricular Septum Diastolic Thickness by 2D (test code = 6579087) 1.34 cm LVPWD (test code = 7644327284) 1.34 cm PW (test code = 4698392108) 1.34 cm 0.6-1.1 EF(Teich) (test code = 8546105459) 41.80 % LVIDS (test code = 5600487643) 4.00 cm Left Ventricular End Systolic Volume by Teichholz Method (test code = 5848422) 71.5 mL FS (test code = 9700722784) 21 % EF - 2D (test code = 10387226) 41.80 % LA size (test code = 8398698418) 4.6 cm Pulmonic Regurgitant End Max Velocity (test code = 8602555894) 119.4 cm/s LAV(MOD-sp4) (test code = 8579734953) 95.00 mL E wave decelartion time (test code = 7944145081) 0.15 s MV stenosis pressure 1/2 time (test code = 1866019442) 45.6 ms MV Peak A Evette (test code = 5596733558) 123.8 cm/s MV Peak E Evette (test code = 3075945051) 109.7 cm/s E/A ratio (test code = 1475112593) ratio MR max PG (test code = 5364916868) 87.20 mm[Hg] MR max evette (test code = 7058619401) 466.90 cm/s Mr max evette (test code = 2147557925) 466.9 m/s MV Prop V (test code = 1172199755) 51.00 cm/s MV E/e' septal (test code = 0369765305) 8.1 cm/s Tapse (test code = 8852435080) 2.21 cm LVOT stroke volume (test code = 8373227551) 49.80 cm3 LVOT peak evette (test code = 4868829475) 89.1 cm/s LVOT mn grad (test code = 9420597117) mmHg AV LVOT peak gradient (test code = 5145298166) mmHg LVOT peak VTI (test code = 1703149576) 16.0 cm LV V1 mean (test code = 1039884555) 64.30 cm/s Aortic valve mean velocity (test code = 6376446117) 133.8 cm/s Ao peak evette (test code = 7644494968) 175.3 cm/s Ao VTI (test code = 1527227948) 32.2 cm AV area by cont VTI (test code = 8086208039) 1.6 cm2 AV area peak evette (test code = 5350243337) 1.6 cm2 Ao max PG (test code = 7156255350) 12.30 mm[Hg] AV peak gradient (test code = 4240283612) mmHg AV valve area (test code = 4316023589) 1.55 cm2 AV mean gradient (test code = 8961144117) mmHg AV regurgitation pressure 1/2 time (test code = 6608968326) 358.5 ms AI dec slope (test code = 5170755050) 364.20 cm/s2 AI max evette (test code = 7298403575) 445.80 cm/s AI max PG (test code = 7496167919) 79.50 mm[Hg] Radiology Study observation (narrative) (test code = 33558-8) LYNDSAY (test code = LYNDSAY) ?Left?Ventricle: Left [...] of Lumason ultrasound enhancing agent used. [facility] (AUTOMATED)2022-08-01 10:43:32* Test Item Value Reference Range Interpretation Comme [facility] POCT GLU (test code = 5069819386) 148 mg/dL 70-110 H Lab Interpretation (test cod e = 75195-1) Abnormal [facility] CampusACTIVATED PARTIAL THRMPLAS [id number] 18:39:45* Test Item Value Reference Range Interpretation Comme [facility] APTT Patient (test code = 3173-2) See_Comment [Automated message] The system which generated this result transmitted reference range: 23 - 38 Seconds. The reference range was not used to interpret this result as normal/abnormal. LYNDSAY (test code = LYNDSAY) The [facility] patient population mean normal value for aPTT is 30 seconds. Lab Interpretation (test code = 56095-8) Normal [facility] CampusPROTHROMBIN TIME / [id number] 18:37:42* Test Item Value Reference Range Interpretation Comme [facility] PROTIME PATIENT (test code = 5964-2) See_Comment [Automated messa Maimaibao] The system which generated this result transmitted reference range: 12.0 - 14.7 Seconds. The reference range was not used to interpret this result as normal/abnormal. INR (test code = 6301-6) Normal INR <1.1; Warfarin Therapeutic range 2.0 to 3.0 or 2.5 to 3.5, depending upon the indications. Lab Interpretation (test code = 60897-6) Normal [facility] CampusTROPONIN [id number] 18:32:01* Test Item Value Reference Range Interpretation Comments TROPONIN I (test code = 4837701081) 0.019 ng/mL See_Comment [Automated message] The system which generated this result transmitted reference range: <=0.034. The reference range was not used to interpret this result as normal/abnormal. LYNDSAY (test code = LYNDSAY) Reference (Normal) [...] patient's use of biotin. Lab Interpretation (test code = 85340-0) Normal [facility] CampusN-TERMINAL [id number]-[id number] 18:29:01* Test Item Value Reference Range Interpretation Comme nts NT-proBNP (test code = 6201399835) 2770 pg/mL See_Comment H [Automated message] The system which generated this result transmitted reference range: <=125. The reference range was not used to interpret this result as normal/abnormal. LYNDSAY (test code = LYNDSAY) Biotin has been reported to cause a negative bias, interpret results relative to patient's use of biotin. Lab Interpretation (test code = 92564-7) Abnormal [facility] CampusCOMP. METABOLIC PANEL (27466)2022-07-31 18:21:42* Test Item Value Reference Range Interpretation Comme nts NA (test code = 4710100101) 136 mmol/L 135-145 K (test code = 3902505321) 4.6 mmol/L 3.5-5.0 CL (test code = 8678802814) 104 mmol/L 98-108 CO2 TOTAL (test code = 4521348605) 26 mmol/L 23-31 AGAP (test code = 5783062855) 2-16 BUN (test code = 0379722963) 9 mg/dL 7-23 GLUCOSE (test code = 6601420304) 97 mg/dL 70-110 CREATININE (test code = 8437064510) 0.64 mg/dL 0.50-1.04 TOTAL BILI (test code = 1958890223) 0.5 mg/dL 0.1-1.1 CALCIUM (test code = 0955683509) 8.2 mg/dL 8.6-10.6 L T PROTEIN (test code = 9893318399) 6.5 g/dL 6.3-8.2 ALBUMIN (test code = 6028182802) 3.9 g/dL 3.5-5.0 ALK PHOS (test code = 7169759972) 93 U/L 34-122 ALTv (test code = 1742-6) 18 U/L 5-35 AST(SGOT) (test code = 8780184245) 19 U/L 13-40 eGFR (test code = 4497008020) mL/min/1.73m2 LYNDSAY (test code = LYNDSAY) Association [...] imaging tests). Lab Interpretation (test code = 77455-4) [facility] 18:21:01* Test Item Value Reference Range Interpretation Comme nts LIPASE (test code = 5407938905) 54 U/L 0-220 Lab Interpretation (test cod e = 05423-7) Normal [facility] WITH [id number] 18:07:00* Test Item Value Reference Range Interpretation Comme nts WBC (test code = 6690-2) See_Comment [Automated messa ge] The system which generated this result transmitted reference range: 4.30 - 11.10 10*3/?L. The reference range was not used to interpret this result as normal/abnormal. RBC (test code = 789-8) See_Comment [Automated messa ge] The system which generated this result transmitted reference range: 3.93 - 5.25 10*6/?L. The reference range was not used to interpret this result as normal/abnormal. HGB (test code = 718-7) 12.2 g/dL 11.6-15.0 HCT (test code = 4544-3) 39.8 % 35.7-45.2 MCV (test code = 787-2) 86.7 fL 80.6-95.5 MCH (test code = 785-6) 26.6 pg 25.9-32.8 MCHC (test code = 786-4) 30.7 g/dL 31.6-35.1 L RDW-SD (test code = 25205-2) 53.1 fL 39.0-49.9 H RDW-CV (test code = 788-0) 17.0 % 12.0-15.5 H PLT (test code = 777-3) See_Comment H [Automated messa ge] The system which generated this result transmitted reference range: 166 - 358 10*3/?L. The reference range was not used to interpret this result as normal/abnormal. MPV (test code = 08841-2) 8.2 fL 9.5-12.9 L NRBC/100 WBC (test code = 6725948643) See_Comment [Automated [employer] ssage] The system which generated this result transmitted reference range: 0.0 - 10.0 /100 WBCs. The reference range was not used to interpret this result as normal/abnormal. NRBC x10^3 (test code = 7967762891) See_Comment [Automated messa ge] The system which generated this result transmitted reference range: 10*3/?L. The reference range was not used to interpret this result as normal/abnormal. GRAN MAT (NEUT) % (test code = 770-8) 64.0 % IMM GRAN % (test code = 7808693433) 0.40 % LYMPH % (test code = 736-9) 27.3 % MONO % (test code = 5905-5) 6.5 % EOS % (test code = 713-8) 1.1 % BASO % (test code = 706-2) 0.7 % GRAN MAT x10^3(ANC) (test code = 4926504355) 5.46 10*3/uL 1.88-7.09 IMM GRAN x10^3 (test code = 6681039702) 0.03 10*3/uL 0.00-0.06 LYMPH x10^3 (test code = 731-0) 2.32 10*3/uL 1.32-3.29 MONO x10^3 (test code = 742-7) 0.55 10*3/uL 0.33-0.92 EOS x10^3 (test code = 711-2) 0.09 10*3/uL 0.03-0.39 BASO x10^3 (test code = 704-7) 0.06 10*3/uL 0.01-0.07 Lab Interpretation (test code = 93634-5) Abnormal [facility] METABOLIC PANEL (NA, K, CL, CO2, GLUCOSE, BUN, CREATININE, CA)2022-05-08 06:37:01* Test Item Value Reference Range Interpretation Comme nts NA (test code = 2846724167) 137 mmol/L 135-145 K (test code = 7725556502) 3.8 mmol/L 3.5-5 CL (test code = 4052694297) 103 mmol/L 98-108 CO2 TOTAL (test code = 4961567373) 24 mmol/L 23-31 AGAP (test code = 5997805587) 2-16 BUN (test code = 0416359329) 13 mg/dL 7-23 GLUCOSE (test code = 3062453623) 90 mg/dL 70-110 CREATININE (test code = 0010093673) 0.69 mg/dL 0.5-1.04 CALCIUM (test code = 7877412193) 8.5 mg/dL 8.6-10.6 L eGFR (test code = 5078338767) mL/min/1.73m2 LYNDSAY (test code = LYNDSAY) Association [...] imaging tests). Lab Interpretation (test code = 62582-8) [facility]normal [facility]2022-[facility] 06:37:01* Test Item Value Reference Range Interpretation Comme nts MAGNESIUM (test code = 9899772840) 2.1 mg/dL 1.7-2.4 Lab Interpretation (test cod e = 53691-4) Normal [facility]PHOSPHORUS2022-10-20 06:37:01* Test Item Value Reference Range Interpretation Comme nts PHOSPHORUS (test code = 6149553194) 4.7 mg/dL 2.5-5 Lab Interpretation (test cod e = 35492-9) Normal [facility] CampusCB WITH [id number] 06:11:54* Test Item Value Reference Range Interpretation Comme nts WBC (test code = 6690-2) See_Comment [Automated [employer]] The system which generated this result transmitted reference range: 4.30 - 11.10 10*3/?L. The reference range was not used to interpret this result as normal/abnormal. RBC (test code = 789-8) See_Comment [Automated messa ge] The system which generated this result transmitted reference range: 3.93 - 5.25 10*6/?L. The reference range was not used to interpret this result as normal/abnormal. HGB (test code = 718-7) 12.5 g/dL 11.6-15 HCT (test code = 4544-3) 38.6 % 35.7-45.2 MCV (test code = 787-2) 85.0 fL 80.6-95.5 MCH (test code = 785-6) 27.5 pg 25.9-32.8 MCHC (test code = 786-4) 32.4 g/dL 31.6-35.1 RDW-SD (test code = 99756-4) 51.0 fL 39-49.9 H RDW-CV (test code = 788-0) 16.5 % 12-15.5 H PLT (test code = 777-3) See_Comment H [Automated messa ge] The system which generated this result transmitted reference range: 166 - 358 10*3/?L. The reference range was not used to interpret this result as normal/abnormal. MPV (test code = 58159-2) 8.3 fL 9.5-12.9 L NRBC/100 WBC (test code = 9455400818) See_Comment [Automated [employer] ssage] The system which generated this result transmitted reference range: 0.0 - 10.0 /100 WBCs. The reference range was not used to interpret this result as normal/abnormal. NRBC x10^3 (test code = 7275578481) See_Comment [Automated messa ge] The system which generated this result transmitted reference range: 10*3/?L. The reference range was not used to interpret this result as normal/abnormal. GRAN MAT (NEUT) % (test code = 770-8) 64.5 % IMM GRAN % (test code = 1163181956) 0.50 % LYMPH % (test code = 736-9) 27.1 % MONO % (test code = 5905-5) 6.6 % EOS % (test code = 713-8) 0.6 % BASO % (test code = 706-2) 0.7 % GRAN MAT x10^3(ANC) (test code = 2601789336) 5.28 10*3/uL 1.88-7.09 IMM GRAN x10^3 (test code = 9664825892) 0.04 10*3/uL 0-0.06 LYMPH x10^3 (test code = 731-0) 2.22 10*3/uL 1.32-3.29 MONO x10^3 (test code = 742-7) 0.54 10*3/uL 0.33-0.92 EOS x10^3 (test code = 711-2) 0.05 10*3/uL 0.03-0.39 BASO x10^3 (test code = 704-7) 0.06 10*3/uL 0.01-0.07 Lab Interpretation (test code = 56119-0) Abnormal [facility] CampusPOCT GLUCOSE (AUTOMATED)2022-05-07 01:18:10* Test Item Value Reference Range Interpretation Comme nts POCT GLU (test code = 0776600433) 120 mg/dL 70-110 H Lab Interpretation (test cod e = 47082-6) Abnormal [facility] CampusType and Screen - ONCE [id number] 05:46:35* Test Item Value Reference Range Interpretation Comme nts ABO & RH (test code = 20) O POSITIVE Performed at [facility] Laboratory Services [facility] Blood [address] Free: [phone] No. [id number] IAT (test code = 1185) Negative Performed at [facility] Laboratory Services [facility] Blood [address] Free: [phone] No. [id number] [facility] CampusBASIC METABOLIC PANEL (NA, K, CL, CO2, GLUCOSE, BUN, CREATININE, CA)2022-05-05 08:22:57* Test Item Value Reference Range Interpretation Comme nts NA (test code = 2126091613) 136 mmol/L 135-145 K (test code = 4943200068) 4.9 mmol/L 3.5-5 CL (test code = 6115059628) 108 mmol/L 98-108 CO2 TOTAL (test code = 0418427901) 22 mmol/L 23-31 L AGAP (test code = 2676494565) 2-16 BUN (test code = 7106425523) 12 mg/dL 7-23 GLUCOSE (test code = 0364734470) 155 mg/dL 70-110 H CREATININE (test code = 8559350764) 0.63 mg/dL 0.5-1.04 CALCIUM (test code = 8274051939) 8.4 mg/dL 8.6-10.6 L eGFR (test code = 2268961042) mL/min/1.73m2 LYNDSAY (test code = LYNDSAY) Association [...] imaging tests). Lab Interpretation (test code = 70040-9) Abnormal [facility] CampusPROTHROMBIN TIME / [id number] 08:22:37* Test Item Value Reference Range Interpretation Comme nts PROTIME PATIENT (test code = 5964-2) See_Comment [Automated messa ge] The system which generated this result transmitted reference range: 10.1 - 12.6 Seconds. The reference range was not used to interpret this result as normal/abnormal. INR (test code = 6301-6) Normal INR <1.1; Warfarin Therapeutic range 2.0 to 3.0 or 2.5 to 3.5, depending upon the indications. Lab Interpretation (test code = 02823-1) Normal [facility] CampusaPTT2022-10-17 08:22:37* Test Item Value Reference Range Interpretation Comme [facility] APTT Patient (test code = 3173-2) See_Comment [Automated messa ge] The system which generated this result transmitted reference range: 26 - 36 Seconds. The reference range was not used to interpret this result as normal/abnormal. Lab Interpretation (test code = 52415-1) Normal [facility] CampusFIBRINOGEN2022-10-17 08:22:37* Test Item Value Reference Range Interpretation Comme [facility] Fibrinogen (test code = 4346068950) 294 mg/dL 167-453 Lab Interpretation (test cod e = 40510-5) Normal [facility] CampusCB WITH [id number] 08:15:01* Test Item Value Reference Range Interpretation Comme [facility] WBC (test code = 6690-2) See_Comment [Automated messa ge] The system which generated this result transmitted reference range: 4.30 - 11.10 10*3/?L. The reference range was not used to interpret this result as normal/abnormal. RBC (test code = 789-8) See_Comment [Automated messa ge] The system which generated this result transmitted reference range: 3.93 - 5.25 10*6/?L. The reference range was not used to interpret this result as normal/abnormal. HGB (test code = 718-7) 12.4 g/dL 11.6-15 HCT (test code = 4544-3) 39.4 % 35.7-45.2 MCV (test code = 787-2) 87.4 fL 80.6-95.5 MCH (test code = 785-6) 27.5 pg 25.9-32.8 MCHC (test code = 786-4) 31.5 g/dL 31.6-35.1 L RDW-SD (test code = 27902-6) 52.9 fL 39-49.9 H RDW-CV (test code = 788-0) 16.8 % 12-15.5 H PLT (test code = 777-3) See_Comment H [Automated messa ge] The system which generated this result transmitted reference range: 166 - 358 10*3/?L. The reference range was not used to interpret this result as normal/abnormal. MPV (test code = 89671-1) 8.3 fL 9.5-12.9 L NRBC/100 WBC (test code = 2414186161) See_Comment [Automated [employer] ssage] The system which generated this result transmitted reference range: 0.0 - 10.0 /100 WBCs. The reference range was not used to interpret this result as normal/abnormal. NRBC x10^3 (test code = 4524030190) See_Comment [Automated messa ge] The system which generated this result transmitted reference range: 10*3/?L. The reference range was not used to interpret this result as normal/abnormal. GRAN MAT (NEUT) % (test code = 770-8) 86.4 % IMM GRAN % (test code = 0755972779) 0.40 % LYMPH % (test code = 736-9) 11.7 % MONO % (test code = 5905-5) 1.1 % EOS % (test code = 713-8) 0.0 % BASO % (test code = 706-2) 0.4 % GRAN MAT x10^3(ANC) (test code = 8519311778) 6.36 10*3/uL 1.88-7.09 IMM GRAN x10^3 (test code = 6470193088) 0.03 10*3/uL 0-0.06 LYMPH x10^3 (test code = 731-0) 0.86 10*3/uL 1.32-3.29 L MONO x10^3 (test code = 742-7) 0.08 10*3/uL 0.33-0.92 L EOS x10^3 (test code = 711-2) 0.03-0.39 L BASO x10^3 (test code = 704-7) 0.03 10*3/uL 0.01-0.07 Lab Interpretation (test code = 37737-7) Abnormal [facility] CampusVITAMIN D, [id number] 20:14:03* Test Item Value Reference Range Interpretation Comme [facility] VIT D 25OH (test code = 22708-9) 22 ng/mL 25-80 L LYNDSAY (test code = LYNDSAY) Deficiency: <20 ng/mLInsufficiency: 20-24 ng/mLOptimal: 25-80 ng/mL Lab Interpretation (test code = 08379-2) Abnormal [facility] (NA, K, CL, CO2, GLUCOSE, BUN, CREATININE, CA)2022-04-15 11:27:57* Test Item Value Reference Range Interpretation Comme [facility] NA (test code = 1564462119) 138 mmol/L 135-145 K (test code = 3176419142) 3.9 mmol/L 3.5-5 CL (test code = 3802054798) 106 mmol/L 98-108 CO2 TOTAL (test code = 2473874879) 23 mmol/L 23-31 AGAP (test code = 0350884722) 2-16 BUN (test code = 4706346280) 10 mg/dL 7-23 GLUCOSE (test code = 7714668058) 91 mg/dL 70-110 CREATININE (test code = 0721426951) 0.65 mg/dL 0.5-1.04 CALCIUM (test code = 6656966780) 8.1 mg/dL 8.6-10.6 L eGFR (test code = 4356352090) mL/min/1.73m2 LYNDSAY (test code = LYNDSAY) Association [...] imaging tests). Lab Interpretation (test code = 56279-0) Abnormal [facility] Protocol - Transthoracic echo (TTE) 2022-04-14 22:07:33* Test Item Value Reference Range Interpretation Comme nts Height (test code = 2103902037) in Weight (test code = 0163803438) lbs Systolic BP (test code = 5967600318) mmHg Diastolic BP (test code = 0951961018) mmHg Heart Rate (test code = 9490449715) bpm BSA (test code = 4115311112) 1.94 m2 TASV (test code = 3647210554) 15.5 cm/s LVIDD (test code = 7824992058) 6.00 cm Left Ventricular End Diastolic Volume by Teichholz Method (test code = 1659714) 183.0 mL IVS (test code = 9070354934) 1.09 cm Interventricular Septum Diastolic Thickness by 2D (test code = 4823853) 1.09 cm LVPWD (test code = 8308391156) 0.94 cm PW (test code = 2360645011) 0.94 cm 0.6-1.1 EF(Teich) (test code = 1085668196) 40.30 % LVIDS (test code = 2654652832) 4.80 cm Left Ventricular End Systolic Volume by Teichholz Method (test code = 4285739) 109.2 mL FS (test code = 1348247089) 20 % EF - 2D (test code = 13484235) 40.30 % LVOT diameter (test code = 9757669597) 2.05 cm LVOT area (test code = 6627533311) 3.30 cm2 Ao root diam (test code = 0145364505) 3.10 cm Aortic root (test code = 6841591809) 3.1 cm Ao root annulus (test code = 0882616310) 3.1 cm LA size (test code = 6548613428) 4.2 cm LAV(MOD-sp4) (test code = 1711072599) 64.90 mL MV Peak A Evette (test code = 9388980119) 115.7 cm/s E wave decelartion time (test code = 4251076272) 0.15 s MV Peak E Evette (test code = 9131189216) 106.2 cm/s E/A ratio (test code = 6251848258) ratio LVOT stroke volume (test code = 6503091813) 48.30 cm3 LVOT peak evette (test code = 1674856479) 78.4 cm/s LVOT mn grad (test code = 1712633866) mmHg AV LVOT peak gradient (test code = 2853851447) mmHg LVOT peak VTI (test code = 0237565254) 14.7 cm LV V1 mean (test code = 3082955734) 51.40 cm/s Ao peak evette (test code = 3161046484) 154.7 cm/s AV area peak evette (test code = 6033713227) 1.7 cm2 Ao max PG (test code = 9769887191) 9.60 mm[Hg] AV peak gradient (test code = 5648224284) mmHg AV regurgitation pressure 1/2 time (test code = 6189045617) 257.3 ms AI dec slope (test code = 4957924991) 498.10 cm/s2 AI max evette (test code = 7102393043) 437.60 cm/s AI max PG (test code = 1052569849) 77.80 mm[Hg] Tapse (test code = 5386693058) 2.19 cm LA Volume Index (BP) (test code = 9715024081) 32.0 mL/m2 LA volume (BP) (test code = 3324893795) 62.1 mL LAV(MOD-sp2) (test code = 2848138395) 52.70 mL A4C EF (test code = 0467071174) 44.80 % EF(sp4-el) (test code = 7364534840) 45.20 % SV(MOD-sp4) (test code = 4392295451) 71.20 mL SV(sp4-el) (test code = 7175532365) 73.90 mL LV Diastolic Volume (BP) (test code = 2881833172) 146.3 mL A2C EF (test code = 1056547126) 52.00 % EF(MOD-bp) (test code = 3480437076) 46.70 % EF(sp2-el) (test code = 6985945328) 52.40 % LV Systolic Volume (BP) (test code = 6157639154) 77.9 mL SV(MOD-bp) (test code = 2946454203) 68.40 mL SV(MOD-sp2) (test code = 4576504861) 69.20 mL EF (test code = 2539436127) Left Ventricular Stroke Volume by 2-D Biplane-MOD (test code = 4002091) 68.4 mL Radiology Study observation (narrative) (test code = 57481-0) LYNDSAY (test code = LYNDSAY) ?Left?Ventricle: Left [...] used and saline contrast was performed. [facility] CampusKEPPRA (LEVETIRACETAM)2022-04-14 16:48:36* Test Item Value Reference Range Interpretation Comme nts KEPPRA (test code = 5053168220) 12-46 L LYNDSAY (test code = LYNDSAY) Therapeutic range: 12-46 ?g/mL ? ?Toxic: Not well established.Test developed and characteristics determined by [facility] Laboratory Services. Lab Interpretation (test code = 11217-0) Abnormal [facility] Metabolic Panel (Na, K, Cl, CO2, Glucose, BUN, Creatinine, Ca)2022-04-14 10:50:11* Test Item Value Reference Range Interpretation Comme [facility] NA (test code = 8936083884) 136 mmol/L 135-145 K (test code = 5917248903) 3.8 mmol/L 3.5-5 CL (test code = 7777300878) 105 mmol/L 98-108 CO2 TOTAL (test code = 7392674737) 25 mmol/L 23-31 AGAP (test code = 0741678836) 2-16 BUN (test code = 9075184374) 9 mg/dL 7-23 GLUCOSE (test code = 1653156694) 101 mg/dL 70-110 CREATININE (test code = 5189521517) 0.66 mg/dL 0.5-1.04 CALCIUM (test code = 8602914263) 8.1 mg/dL 8.6-10.6 L eGFR (test code = 6473770271) mL/min/1.73m2 LYNDSAY (test code = LYNDSAY) Association [...] imaging tests). Lab Interpretation (test code = 62319-2) Abnormal [facility] CampusMagensium, [id number] 10:50:11* Test Item Value Reference Range Interpretation Comme nts MAGNESIUM (test code = 1234622310) 1.9 mg/dL 1.7-2.4 Lab Interpretation (test cod e = 29838-0) Normal [facility] CampusThyroid Stimulating [id number] 22:21:44 * Test Item Value Reference Range Interpretation Comme nts TSH (test code = 2914392814) See_Comment Biotin has been reported to cause a negative bias, interpret results relative to patient's use of biotin. [Automated message] The system which generated this result transmitted reference range: 0.45 - 4.70 mIU/L. The reference range was not used to interpret this result as normal/abnormal. Lab Interpretation (test code = 91429-4) Normal [facility] CampusGLYCOSYLATED HEMOGLOBIN (A1C)2022-04-13 21:53:43* Test Item Value Reference Range Interpretation Comme nts HGB A1C (test code = 4548-4) 5.8 % 4-5.7 H LYNDSAY (test code = LYNDSAY) Reference RangesNormal: <5.7%Prediabetes: 5.7 - 6.4%Diabetes: > 6.5% Lab Interpretation (test code = 66139-8) Abnormal [facility] CampusFASTING LIPID PANEL (60269)(TOTAL CHOLESTEROL, TRIGLYCERIDES, HDL)2022-04-13 21:34:53* Test Item Value Reference Range Interpretation Comme nts CHOL (test code = 0669364505) 201 mg/dL 120-200 H HDL (test code = 8423058765) 56 mg/dL See_Comment [Automated [employer]] The system which generated this result transmitted reference range: >=50. The reference range was not used to interpret this result as normal/abnormal. HDLC RATIO (test code = 2178694940) See_Comment [Automated [employer]] The system which generated this result transmitted reference range: <=4.5. The reference range was not used to interpret this result as normal/abnormal. TRIG (test code = 3119978689) 355 mg/dL 30-170 H LDL CHOL (test code = 61806-4) 74 mg/dL See_Comment [Automated [employer]] The system which generated this result transmitted reference range: <=160. The reference range was not used to interpret this result as normal/abnormal. VLDL (test code = 1710358870) 71 mg/dL 5-60 H Lab Interpretation (test code = 52990-1) Abnormal [facility] CampusTroponin I - Code [id number] 18:46:27* Test Item Value Reference Range Interpretation Comments TROPONIN I (test code = 7039068078) 0.013 ng/mL See_Comment [Automated message] The system which generated this result transmitted reference range: <=0.034. The reference range was not used to interpret this result as normal/abnormal. LYNDSAY (test code = LYNDSAY) Reference (Normal) [...] patient's use of biotin. Lab Interpretation (test code = 24652-6) Normal [facility] Metabolic Panel (NA, K, CL, CO2, Glucose, BUN, Creatinine, CA) - Code [id number] 18:35:07* Test Item Value Reference Range Interpretation Comme nts NA (test code = 5089402550) 136 mmol/L 135-145 K (test code = 2937327819) 4.3 mmol/L 3.5-5 CL (test code = 9513582097) 105 mmol/L 98-108 CO2 TOTAL (test code = 1400261327) 27 mmol/L 23-31 AGAP (test code = 5972962509) 2-16 BUN (test code = 4689410048) 8 mg/dL 7-23 GLUCOSE (test code = 1365870082) 130 mg/dL 70-110 H CREATININE (test code = 9142240993) 0.75 mg/dL 0.5-1.04 CALCIUM (test code = 1898560105) 8.5 mg/dL 8.6-10.6 L eGFR (test code = 0431093885) mL/min/1.73m2 LYNDSAY (test code = LYNDSAY) Association [...] imaging tests). Lab Interpretation (test code = 94896-8) Abnormal [facility] CampusaPTT - Code [id number] 18:32:46* Test Item Value Reference Range Interpretation Comme nts APTT Patient (test code = 3173-2) See_Comment [Automated message] The system which generated this result transmitted reference range: 23 - 38 Seconds. The reference range was not used to interpret this result as normal/abnormal. LYNDSAY (test code = LYNDSAY) The [facility] patient population mean normal value for aPTT is 30 seconds. Lab Interpretation (test code = 58656-8) Normal [facility] CampusProthrombin Time / INR - Code [id number] 18:30:45* Test Item Value Reference Range Interpretation Comme nts PROTIME PATIENT (test code = 5964-2) See_Comment [Automated messa ge] The system which generated this result transmitted reference range: 12.0 - 14.7 Seconds. The reference range was not used to interpret this result as normal/abnormal. INR (test code = 6301-6) Normal INR <1.1; Warfarin Therapeutic range 2.0 to 3.0 or 2.5 to 3.5, depending upon the indications. Lab Interpretation (test code = 67598-6) Normal [facility] CampusCBC without Diff - Code [id number] 18:23:07* Test Item Value Reference Range Interpretation Comme nts WBC (test code = 6690-2) See_Comment [Automated message] The system which generated this result transmitted reference range: 4.30 - 11.10 10*3/?L. The reference range was not used to interpret this result as normal/abnormal. RBC (test code = 789-8) See_Comment [Automated message] The system which generated this result transmitted reference range: 3.93 - 5.25 10*6/?L. The reference range was not used to interpret this result as normal/abnormal. HGB (test code = 718-7) 12.9 g/dL 11.6-15 HCT (test code = 4544-3) 39.4 % 35.7-45.2 MCH (test code = 785-6) 27.7 pg 25.9-32.8 MCV (test code = 787-2) 84.5 fL 80.6-95.5 MCHC (test code = 786-4) 32.7 g/dL 31.6-35.1 PLT (test code = 777-3) See_Comment H [Automated message] The system which generated this result transmitted reference range: 166 - 358 10*3/?L. The reference range was not used to interpret this result as normal/abnormal. MPV (test code = 61264-4) 8.1 fL 9.5-12.9 L RDW-CV (test code = 788-0) 16.1 % 12-15.5 H RDW-SD (test code = 84128-2) 49.2 fL 39-49.9 NRBC x10^3 (test code = 6118803800) See_Comment [Automated [employer]] The system which generated this result transmitted reference range: 10*3/?L. The reference range was not used to interpret this result as normal/abnormal. NRBC/100 WBC (test code = 7140569446) See_Comment [Automated [employer] ge] The system which generated this result transmitted reference range: 0.0 - 10.0 /100 WBCs. The reference range was not used to interpret this result as normal/abnormal. IPF % (test code = 9041992034) Lab Interpretation (test code = 73857-6) Abnormal [facility]TR[facility] CENTEREYAD [id number] 21:06:40* Test Item Value Reference Range Interpretation Comments TROPONIN I (test code = 5063288045) 0.005 ng/mL See_Comment [Automated message] The system which generated this result transmitted reference range: <=0.034. The reference range was not used to interpret this result as normal/abnormal. LYNDSAY (test code = LYNDSAY) Reference (Normal) [...] patient's use of biotin. Lab Interpretation (test code = 24533-6) Normal [facility]. METABOLIC PANEL (55399)2021-11-23 20:55:42* Test Item Value Reference Range Interpretation Comme nts NA (test code = 9089045267) 137 mmol/L 135-145 K (test code = 1287175148) 4.3 mmol/L 3.5-5.0 CL (test code = 9139280303) 104 mmol/L 98-108 CO2 TOTAL (test code = 9388437321) 22 mmol/L 23-31 L AGAP (test code = 4643989192) 2-16 BUN (test code = 4297477806) 15 mg/dL 7-23 GLUCOSE (test code = 2329029189) 114 mg/dL 70-110 H CREATININE (test code = 5784181587) 0.68 mg/dL 0.50-1.04 TOTAL BILI (test code = 2628702199) 0.5 mg/dL 0.1-1.1 CALCIUM (test code = 6430773976) 9.1 mg/dL 8.6-10.6 T PROTEIN (test code = 5846834673) 7.3 g/dL 6.3-8.2 ALBUMIN (test code = 7694729639) 4.4 g/dL 3.5-5.0 ALK PHOS (test code = 8145716527) 243 U/L 34-122 H ALTv (test code = 1742-6) 24 U/L 5-35 AST(SGOT) (test code = 1745561349) 30 U/L 13-40 eGFR (test code = 3873726720) mL/min/1.73m2 LYNDSAY (test code = LYNDSAY) Association [...] imaging tests). Lab Interpretation (test code = 35683-9) [facility] 20:55:22* Test Item Value Reference Range Interpretation Comme [facility] LIPASE (test code = 4842225271) 96 U/L 0-220 Lab Interpretation (test cod e = 85719-5) Normal [facility]PO[facility] [id number] 20:46:00* Test Item Value Reference Range Interpretation Comme [facility] POCT PREG (test code = 1605) negative On board controls acceptable with C Line (test code = 3574) present POCT PREG LOT # (test code = 3575) [id number] POCT PREG TEST DATE ( test code = 3576) 04/18/2023 Lab Interpretation (test cod e = 00088-4) Normal [facility] WITH [id number] 20:40:38* Test Item Value Reference Range Interpretation Comme nts WBC (test code = 6690-2) See_Comment [Automated messa ge] The system which generated this result transmitted reference range: 4.30 - 11.10 10*3/?L. The reference range was not used to interpret this result as normal/abnormal. RBC (test code = 789-8) See_Comment [Automated messa ge] The system which generated this result transmitted reference range: 3.93 - 5.25 10*6/?L. The reference range was not used to interpret this result as normal/abnormal. HGB (test code = 718-7) 13.3 g/dL 11.6-15.0 HCT (test code = 4544-3) 41.8 % 35.7-45.2 MCV (test code = 787-2) 86.0 fL 80.6-95.5 MCH (test code = 785-6) 27.4 pg 25.9-32.8 MCHC (test code = 786-4) 31.8 g/dL 31.6-35.1 RDW-SD (test code = 20929-1) 53.7 fL 39.0-49.9 H RDW-CV (test code = 788-0) 17.2 % 12.0-15.5 H PLT (test code = 777-3) See_Comment H [Automated messa ge] The system which generated this result transmitted reference range: 166 - 358 10*3/?L. The reference range was not used to interpret this result as normal/abnormal. MPV (test code = 99513-8) 8.5 fL 9.5-12.9 L NRBC/100 WBC (test code = 4411580317) See_Comment [Automated me ssage] The system which generated this result transmitted reference range: 0.0 - 10.0 /100 WBCs. The reference range was not used to interpret this result as normal/abnormal. NRBC x10^3 (test code = 3920035984) <0.01 See_Comment [Automated messa ge] The system which generated this result transmitted reference range: 10*3/?L. The reference range was not used to interpret this result as normal/abnormal. GRAN MAT (NEUT) % (test code = 770-8) 53.7 % IMM GRAN % (test code = 3477470556) 0.90 % LYMPH % (test code = 736-9) 32.6 % MONO % (test code = 5905-5) 10.1 % EOS % (test code = 713-8) 1.5 % BASO % (test code = 706-2) 1.2 % GRAN MAT x10^3(ANC) (test code = 5348539571) 4.98 10*3/uL 1.88-7.09 IMM GRAN x10^3 (test code = 2247339379) 0.08 10*3/uL 0.00-0.06 H LYMPH x10^3 (test code = 731-0) 3.02 10*3/uL 1.32-3.29 MONO x10^3 (test code = 742-7) 0.94 10*3/uL 0.33-0.92 H EOS x10^3 (test code = 711-2) 0.14 10*3/uL 0.03-0.39 BASO x10^3 (test code = 704-7) 0.11 10*3/uL 0.01-0.07 H Lab Interpretation (test code = 61272-3) Abnormal [facility] GLUCOSE (AUTOMATED)2021-11-23 20:17:33* Test Item Value Reference Range Interpretation Comme [facility] POCT GLU (test code = 2196114724) 111 mg/dL 70-110 H Notified Provide r Lab Interpretation (test code = 48124-6) Abnormal [facility] TEST, THINPREP, [id number] 00:00:00 * Test Item Value Reference Range Interpretation Comme nts SOURCE: (test code = 8001) Endocervical SLIDES: (test code = 8011) 1 LMP: (test code = 8021) 06/03/2021 SPECIMEN ADEQUACY: (test code = 86686) (NOTE) INTERPRETATION: (test code = 45827) ASCUS/EPITH. ABNORMALITY; SEE BELOW REGRIND MILL OPERATOR: (test code = 8101) CHANA Thacker(ASCP)IAC PATHOLOGIST INTERPRETATION BY: (test code = 8122) Nahid Russell M.D. LOCATION: (test code = 67223) (NOTE) CPT: (test code = 8140) (NOTE) PAP TEST, THINPREP, [id number] 00:00:00* Test Item Value Reference Range Interpretation Comme nts SOURCE: (test code = 8001) Endocervical SLIDES: (test code = 8011) 1 LMP: (test code = 8021) 06/03/2021 SPECIMEN ADEQUACY: (test code = 46466) (NOTE) INTERPRETATION: (test code = 67559) ASCUS/EPITH. ABNORMALITY; SEE BELOW REGRIND MILL OPERATOR: (test code = 8101) CHANA Thacker(ASCP)PACHECO PATHOLOGIST INTERPRETATION BY: (test code = 8122) Nahid Russell M.D. LOCATION: (test code = 96045) (NOTE) CPT: (test code = 8140) (NOTE) PAP TEST, THINPREP, [id number] 00:00:00* Test Item Value Reference Range Interpretation Comme nts SOURCE: (test code = 8001) Endocervical SLIDES: (test code = 8011) 1 LMP: (test code = 8021) 06/03/2021 SPECIMEN ADEQUACY: (test code = 92785) (NOTE) INTERPRETATION: (test code = 90303) ASCUS/EPITH. ABNORMALITY; SEE BELOW REGRIND MILL OPERATOR: (test code = 8101) CHANA Thacker(ASCP)PACHECO PATHOLOGIST INTERPRETATION BY: (test code = 8122) Nahid Russell M.D. LOCATION: (test code = 73559) (NOTE) CPT: (test code = 8140) (NOTE) PAP TEST, THINPREP, [id number] 00:00:00* Test Item Value Reference Range Interpretation Comme nts SOURCE: (test code = 8001) Endocervical SLIDES: (test code = 8011) 1 LMP: (test code = 8021) 06/03/2021 SPECIMEN ADEQUACY: (test code = 57247) (NOTE) INTERPRETATION: (test code = 24821) ASCUS/EPITH. ABNORMALITY; SEE BELOW REGRIND MILL OPERATOR: (test code = 8101) CHANA Thacker(ASCP)PACHECO PATHOLOGIST INTERPRETATION BY: (test code = 8122) Nahid Russell M.D. LOCATION: (test code = 15510) (NOTE) CPT: (test code = 8140) (NOTE) HPV HIGH RISK WITH GENOTYPE, [id number] 00:00:00* Test Item Value Reference Range Interpretation Comme [facility] HPV HIGH RISK INTERP (test c ode = 02089) POSITIVE HPV 16 (test code = 34770) POSITIVE HPV 18 (test code = 98631) NEGATIVE HPV, HR, OTHER GENOTYPES (te st code = 81539) POSITIVE HPV HIGH RISK WITH GENOTYPE, [id number] 00:00:00* Test Item Value Reference Range Interpretation Comme nts HPV HIGH RISK INTERP (test c ode = 16441) POSITIVE HPV 16 (test code = 73511) POSITIVE HPV 18 (test code = 21474) NEGATIVE HPV, HR, OTHER GENOTYPES (te st code = 56505) POSITIVE HPV HIGH RISK WITH GENOTYPE, [id number] 00:00:00* Test Item Value Reference Range Interpretation Comme [facility] HPV HIGH RISK INTERP (test c ode = 71485) POSITIVE HPV 16 (test code = 93087) POSITIVE HPV 18 (test code = 97262) NEGATIVE HPV, HR, OTHER GENOTYPES (te st code = 99697) POSITIVE HPV HIGH RISK WITH GENOTYPE, [id number] 00:00:00* Test Item Value Reference Range Interpretation Comme [facility] HPV HIGH RISK INTERP (test c ode = 43268) POSITIVE HPV 16 (test code = 03827) POSITIVE HPV 18 (test code = 07005) NEGATIVE HPV, HR, OTHER GENOTYPES (te st code = 34890) POSITIVE [id number] 03:22:48* Test Item Value Reference Range Interpretation Comme nts APPEARANCE (test code = 4558994532) Hazy Clear A COLOR (test code = 8955160951) Yellow Yellow PH (test code = 0985801850) 4.8-8.0 SP GRAVITY (test code = 8812547968) 1.003-1.030 GLU U QUAL (test code = 6425057907) Normal Normal BLOOD (test code = 8353367855) Negative Negative Interference fro m ascorbic acid may cause false negative results. KETONES (test code = 7902210561) 5 mg/dL Negative A PROTEIN (test code = 2887-8) Negative Negative UROBILIN (test code = 8594599373) 4.0 mg/dL Normal A BILIRUBIN (test code = 9710399495) Negative Negative NITRITE (test code = 1987677520) Negative Negative LEUK GRUPO (test code = 3775631450) Negative Negative RBC/HPF (test code = 8854151759) See_Comment [Automated messa ge] The system which generated this result transmitted reference range: 0 - 3 HPF. The reference range was not used to interpret this result as normal/abnormal. WBC/HPF (test code = 2776776102) <1 See_Comment [Automated messa ge] The system which generated this result transmitted reference range: 0 - 5 HPF. The reference range was not used to interpret this result as normal/abnormal. BACTERIA (test code = 7706470523) Few Negative A SQ EPITH (test code = 1730137867) HPF Lab Interpretation (test code = 65569-8) [facility]normal [facility]IS2021-[facility]-29 03:22:48* Test Item Value Reference Range Interpretation Comme nts APPEARANCE (test code = 7715984805) Hazy Clear A COLOR (test code = 3737439223) Yellow Yellow PH (test code = 0382678505) 4.8-8.0 SP GRAVITY (test code = 5955447170) 1.003-1.030 GLU U QUAL (test code = 5302032462) Normal Normal BLOOD (test code = 6918701470) Negative Negative KETONES (test code = 4113016340) 5 mg/dL Negative A PROTEIN (test code = 2887-8) Negative Negative UROBILIN (test code = 9095469519) 4.0 mg/dL Normal A BILIRUBIN (test code = 4286212929) Negative Negative NITRITE (test code = 8206228764) Negative Negative LEUK GRUPO (test code = 8146027247) Negative Negative RBC/HPF (test code = 2927131574) See_Comment [Automated messa ge] The system which generated this result transmitted reference range: 0 - 3 HPF. The reference range was not used to interpret this result as normal/abnormal. WBC/HPF (test code = 0325374301) <1 See_Comment [Automated messa ge] The system which generated this result transmitted reference range: 0 - 5 HPF. The reference range was not used to interpret this result as normal/abnormal. BACTERIA (test code = 7127197156) Few Negative A SQ EPITH (test code = 4316805467) HPF Lab Interpretation (test code = 82798-1) Abnormal [facility] [id number] 02:45:00* Test Item Value Reference Range Interpretation Comments TROPONIN I (test code = 2163911782) 0.002 ng/mL See_Comment [Automated message] The system which generated this result transmitted reference range: <=0.034. The reference range was not used to interpret this result as normal/abnormal. LYNDSAY (test code = LYNDSAY) Reference (Normal) [...] patient's use of biotin. Lab Interpretation (test code = 17137-9) Normal [facility] [id number] 02:45:00* Test Item Value Reference Range Interpretation Comme nts TROPONIN I (test code = 5062909402) 0.002 ng/mL See_Comment [Automated VasoNov[employer] ge] The system which generated this result transmitted reference range: <=0.034. The reference range was not used to interpret this result as normal/abnormal. LYNDSAY (test code = LYNDSAY) Lab Interpretation (test code = 26077-9) Normal [facility]AL [id number] 02:41:57* Test Item Value Reference Range Interpretation Comme nts NT-proBNP (test code = 8057948261) 169 pg/mL See_Comment H [Automated message] The system which generated this result transmitted reference range: <=125. The reference range was not used to interpret this result as normal/abnormal. LYNDSAY (test code = LYNDSAY) Biotin has been reported to cause a negative bias, interpret results relative to patient's use of biotin. Lab Interpretation (test code = 70525-1) [facility]normal [facility] [id number] 02:41:57* Test Item Value Reference Range Interpretation Comme nts NT-proBNP (test code = 3554627952) 169 pg/mL See_Comment H [Automated messa ge] The system which generated this result transmitted reference range: <=125. The reference range was not used to interpret this result as normal/abnormal. LYNDSAY (test code = LYNDSAY) Lab Interpretation (test code = 37249-5) [facility]normal [facility] CampusCOMP. METABOLIC PANEL ([id number])2021-03-17 02:09:13* Test Item Value Reference Range Interpretation Comme nts NA (test code = 6155525363) 137 mmol/L 135-145 K (test code = 4637138808) 4.2 mmol/L 3.5-5.0 CL (test code = 1975237962) 102 mmol/L 98-108 CO2 TOTAL (test code = 3676360826) 25 mmol/L 23-31 AGAP (test code = 8220053847) 2-16 BUN (test code = 9804197694) 18 mg/dL 7-23 GLUCOSE (test code = 4918178047) 144 mg/dL 70-110 H CREATININE (test code = 0398815418) 0.77 mg/dL 0.50-1.04 TOTAL BILI (test code = 1967476125) 0.4 mg/dL 0.1-1.1 CALCIUM (test code = 6999744247) 8.9 mg/dL 8.6-10.6 T PROTEIN (test code = 0794777087) 6.8 g/dL 6.3-8.2 ALBUMIN (test code = 2867278166) 3.9 g/dL 3.5-5.0 ALK PHOS (test code = 0766538020) 84 U/L 34-122 ALTv (test code = 1742-6) 13 U/L 5-35 AST(SGOT) (test code = 0425227936) 17 U/L 13-40 eGFR (test code = 5701152280) mL/min/1.73m2 LYNDSAY (test code = LYNDSAY) Association [...] imaging tests). Lab Interpretation (test code = 26612-1) Abnormal [facility]. METABOLIC PANEL (41485)2021-03-17 02:09:13* Test Item Value Reference Range Interpretation Comme nts NA (test code = 8829081310) 137 mmol/L 135-145 K (test code = 3815758763) 4.2 mmol/L 3.5-5.0 CL (test code = 9952976693) 102 mmol/L 98-108 CO2 TOTAL (test code = 1458780198) 25 mmol/L 23-31 AGAP (test code = 2796525551) 2-16 BUN (test code = 1611800380) 18 mg/dL 7-23 GLUCOSE (test code = 6197561999) 144 mg/dL 70-110 H CREATININE (test code = 4188277460) 0.77 mg/dL 0.50-1.04 TOTAL BILI (test code = 6405745094) 0.4 mg/dL 0.1-1.1 CALCIUM (test code = 1813234871) 8.9 mg/dL 8.6-10.6 T PROTEIN (test code = 7055334385) 6.8 g/dL 6.3-8.2 ALBUMIN (test code = 9517468919) 3.9 g/dL 3.5-5.0 ALK PHOS (test code = 1017521166) 84 U/L 34-122 ALTv (test code = 1742-6) 13 U/L 5-35 AST(SGOT) (test code = 4517835422) 17 U/L 13-40 eGFR (test code = 5885722242) mL/min/1.73m2 LYNDSAY (test code = LYNDSAY) Lab Interpretation (test cod e = 26724-7) Ab[facility] WITH [id number] 01:56:33* Test Item Value Reference Range Interpretation Comme nts WBC (test code = 6690-2) See_Comment H [Automated messa ge] The system which generated this result transmitted reference range: 4.30 - 11.10 10*3/?L. The reference range was not used to interpret this result as normal/abnormal. RBC (test code = 789-8) See_Comment [Automated messa ge] The system which generated this result transmitted reference range: 3.93 - 5.25 10*6/?L. The reference range was not used to interpret this result as normal/abnormal. HGB (test code = 718-7) 10.8 g/dL 11.6-15.0 L HCT (test code = 4544-3) 34.7 % 35.7-45.2 L MCV (test code = 787-2) 81.3 fL 80.6-95.5 MCH (test code = 785-6) 25.3 pg 25.9-32.8 L MCHC (test code = 786-4) 31.1 g/dL 31.6-35.1 L RDW-SD (test code = 85228-3) 55.5 fL 39.0-49.9 H RDW-CV (test code = 788-0) 18.9 % 12.0-15.5 H PLT (test code = 777-3) See_Comment H [Automated messa ge] The system which generated this result transmitted reference range: 166 - 358 10*3/?L. The reference range was not used to interpret this result as normal/abnormal. MPV (test code = 09110-3) 8.2 fL 9.5-12.9 L NRBC/100 WBC (test code = 6911936395) See_Comment [Automated me ssage] The system which generated this result transmitted reference range: 0.0 - 10.0 /100 WBCs. The reference range was not used to interpret this result as normal/abnormal. NRBC x10^3 (test code = 6953204978) <0.01 See_Comment [Automated messa ge] The system which generated this result transmitted reference range: 10*3/?L. The reference range was not used to interpret this result as normal/abnormal. GRAN MAT (NEUT) % (test code = 770-8) 61.7 % IMM GRAN % (test code = 0940244626) 0.80 % LYMPH % (test code = 736-9) 28.5 % MONO % (test code = 5905-5) 6.3 % EOS % (test code = 713-8) 1.8 % BASO % (test code = 706-2) 0.9 % GRAN MAT x10^3(ANC) (test code = 9651226031) 7.31 10*3/uL 1.88-7.09 H IMM GRAN x10^3 (test code = 3395964887) 0.09 10*3/uL 0.00-0.06 H LYMPH x10^3 (test code = 731-0) 3.38 10*3/uL 1.32-3.29 H MONO x10^3 (test code = 742-7) 0.75 10*3/uL 0.33-0.92 EOS x10^3 (test code = 711-2) 0.21 10*3/uL 0.03-0.39 BASO x10^3 (test code = 704-7) 0.11 10*3/uL 0.01-0.07 H Lab Interpretation (test code = 04347-6) [facility] WITH [id number] 01:56:33* Test Item Value Reference Range Interpretation Comme nts WBC (test code = 6690-2) See_Comment H [Automated messa ge] The system which generated this result transmitted reference range: 4.30 - 11.10 10*3/?L. The reference range was not used to interpret this result as normal/abnormal. RBC (test code = 789-8) See_Comment [Automated VasoNovaa ge] The system which generated this result transmitted reference range: 3.93 - 5.25 10*6/?L. The reference range was not used to interpret this result as normal/abnormal. HGB (test code = 718-7) 10.8 g/dL 11.6-15.0 L HCT (test code = 4544-3) 34.7 % 35.7-45.2 L MCV (test code = 787-2) 81.3 fL 80.6-95.5 MCH (test code = 785-6) 25.3 pg 25.9-32.8 L MCHC (test code = 786-4) 31.1 g/dL 31.6-35.1 L RDW-SD (test code = 69191-2) 55.5 fL 39.0-49.9 H RDW-CV (test code = 788-0) 18.9 % 12.0-15.5 H PLT (test code = 777-3) See_Comment H [Automated VasoNovaa ge] The system which generated this result transmitted reference range: 166 - 358 10*3/?L. The reference range was not used to interpret this result as normal/abnormal. MPV (test code = 07349-5) 8.2 fL 9.5-12.9 L NRBC/100 WBC (test code = 4587205097) See_Comment [Automated [employer] ssage] The system which generated this result transmitted reference range: 0.0 - 10.0 /100 WBCs. The reference range was not used to interpret this result as normal/abnormal. NRBC x10^3 (test code = 7622864793) <0.01 See_Comment [Automated VasoNovaa ge] The system which generated this result transmitted reference range: 10*3/?L. The reference range was not used to interpret this result as normal/abnormal. GRAN MAT (NEUT) % (test code = 770-8) 61.7 % IMM GRAN % (test code = 4797296906) 0.80 % LYMPH % (test code = 736-9) 28.5 % MONO % (test code = 5905-5) 6.3 % EOS % (test code = 713-8) 1.8 % BASO % (test code = 706-2) 0.9 % GRAN MAT x10^3(ANC) (test code = 3058982976) 7.31 10*3/uL 1.88-7.09 H IMM GRAN x10^3 (test code = 0655390879) 0.09 10*3/uL 0.00-0.06 H LYMPH x10^3 (test code = 731-0) 3.38 10*3/uL 1.32-3.29 H MONO x10^3 (test code = 742-7) 0.75 10*3/uL 0.33-0.92 EOS x10^3 (test code = 711-2) 0.21 10*3/uL 0.03-0.39 BASO x10^3 (test code = 704-7) 0.11 10*3/uL 0.01-0.07 H Lab Interpretation (test code = 65704-3) [facility] (ID NOW RAPID TESTING)2021-03-17 01:38:12* Test Item Value Reference Range Interpretation Comme nts SARS-CoV-2 Rapid ID NOW (test code = 84472-2) Not Detected Not Detected LYNDSAY (test code = LYNDSAY) ID NOW COVID-19 As say is an isothermal nucleic acid amplification test intended for the qualitative detection of nucleic acid from SARS-CoV-2 viral RNA in nasopharyngeal (BUSINESS SERVICES ADMINISTRATOR) specimens. It is used under Emergency [...] patient testing if clinically indicated. Lab Interpretation (test code = 77174-1) [facility] (ID NOW RAPID TESTING)2021-03-17 01:38:12* Test Item Value Reference Range Interpretation Comme nts SARS-CoV-2 Rapid ID NOW (raisa t code = 94127-4) Not Detected Not Detected LYNDSAY (test code = LYNDSAY) Lab Interpretation (test cod e = 73329-4) [facility] (ID NOW RAPID TESTING)2021-02-19 17:42:45* Test Item Value Reference Range Interpretation Comme nts SARS-CoV-2 Rapid ID NOW (test code = 88905-7) Not Detected Not Detected LYNDSAY (test code = LYNDSAY) ID NOW COVID-19 As say is an isothermal nucleic acid amplification test intended for the qualitative detection of nucleic acid from SARS-CoV-2 viral RNA in nasopharyngeal (BUSINESS SERVICES ADMINISTRATOR) specimens. It is used under Emergency [...] patient testing if clinically indicated. Lab Interpretation (test code = 59238-0) Normal [facility] CampusCT ABDOMEN PELVIS W [id number] 17:24:55Thickening of the gastric antrum and duodenal [...] IV contrast. Oral contrast was administered. Coronal andsa gittal reconstruction was performed. Dose reduction technology wasutilized.. FINDINGS:The liver is normal in size and morphology without discrete lesions. Focalfatty infiltration along the falciform ligament. Cholecystectomy. Thespleen is normal. No pancreatic lesions or inflammatory changes. Diffusethickening and nodularity of the left adrenal gland is stable measuring upto 1.5 cm. Right adrenalgland is normal. Both kidneys enhance symmetrically without discrete lesions. No stones orhydronephrosis. Urinary bladder is grossly normal. No hiatal hernia or esophageal thickening. Thickening noted of the gastricantrum and duodenal bulb. No surrounding inflammatory changes or focalfluid collectio ns. No free air. The large and small bowel are normal incaliber and wall thickness. Moderate formedstool within the colon. Theappendix is normal. The [...] is normal. No pancreatic lesions or inflammatory ch anges. Diffusethickening and nodularity of the left adrenal gland is stable measuring upto 1.5 cm. Right adrenal gland is normal.Both kidneys enhance symmetrically without discrete lesions. No stonesorhydronephrosis. Urinary bladder is grossly normal.No hiatal hernia or esophageal thickening. Thickening noted of the gastricantrum and duodenal bulb. No surrounding inflammatory changes or focalfluid collections. No free air. The large and small bowel are normal incaliber and wall thickness. Moderate formed stool within the colon. Theappendix is normal.The uterus and ovaries are normal for age.No free fluid or abscess. Noadenopathy. Aorta is normal in caliber.No acute osseous abnormality. Noacute process in the subcutaneous softtissues. The lung bases are clear.IMPRESSIONThickening of thegastric antrum and duodenal bulb could be fromunderdistention, the differential would include sequela of peptic ulcerdisease. No findings of ulcer perforation.Otherwise, no acute intra- abdominal or pelvic abnormality.Stable thickening and nodularity of the left adrenal gland.RL: [id number] Electronicallysigned by James Freeman at 02/19/2021 12:24 PMNorth [facility] CampusUrinalysis2021-08-03 17:03:40* Test Item Value Reference Range Interpretation Comme nts APPEARANCE (test code = 3523243015) Hazy Clear A COLOR (test code = 4076734998) Mabel Yellow A PH (test code = 0067989248) 4.8-8.0 SP GRAVITY (test code = 0610846897) 1.003-1.030 H GLU U QUAL (test code = 7391878758) Normal Normal BLOOD (test code = 5629852817) Negative Negative KETONES (test code = 7250392491) 5 mg/dL Negative A PROTEIN (test code = 2887-8) 30 mg/dL Negative A UROBILIN (test code = 1348020719) 4.0 mg/dL Normal A BILIRUBIN (test code = 2834881819) 4 mg/dL Negative A NITRITE (test code = 8726187067) Negative Negative LEUK GRUPO (test code = 0439490121) Negative Negative RBC/HPF (test code = 4941488842) See_Comment H [Automated [employer]] The system which generated this result transmitted reference range: 0 - 3 HPF. The reference range was not used to interpret this result as normal/abnormal. WBC/HPF (test code = 1484812685) See_Comment H [Automated [employer]] The system which generated this result transmitted reference range: 0 - 5 HPF. The reference range was not used to interpret this result as normal/abnormal. BACTERIA (test code = 2734348464) Few Negative A MUCOUS (test code = 6618387545) Moderate Negative LPF A SQ EPITH (test code = 5000048925) HPF CA OXALATE (test code = 9382453263) See_Comment H [Automated messa ge] The system which generated this result transmitted reference range: <=1 HPF. The reference range was not used to interpret this result as normal/abnormal. Ictotest (test code = 9558846830) Negative Lab Interpretation (test code = 26977-8) Abnormal [facility]Com[facility] Metabolic [id number] 16:34:55* Test Item Value Reference Range Interpretation Comme nts NA (test code = 2382881241) 139 mmol/L 135-145 K (test code = 6594064546) 4.3 mmol/L 3.5-5.0 CL (test code = 9361359926) 105 mmol/L 98-108 CO2 TOTAL (test code = 3251572620) 26 mmol/L 23-31 AGAP (test code = 3462963069) 2-16 BUN (test code = 4578226795) 11 mg/dL 7-23 GLUCOSE (test code = 0494906262) 95 mg/dL 70-110 CREATININE (test code = 9438047583) 0.70 mg/dL 0.50-1.04 TOTAL BILI (test code = 1724836517) 0.6 mg/dL 0.1-1.1 CALCIUM (test code = 4047095305) 8.9 mg/dL 8.6-10.6 T PROTEIN (test code = 5362157814) 7.7 g/dL 6.3-8.2 ALBUMIN (test code = 7715240828) 4.1 g/dL 3.5-5.0 ALK PHOS (test code = 9351590704) 79 U/L 34-122 ALTv (test code = 1742-6) 10 U/L 5-35 AST(SGOT) (test code = 1850348034) 22 U/L 13-40 eGFR (test code = 2210024989) mL/min/1.73m2 LYNDSAY (test code = LYNDSAY) Association [...] urine or abnormalities in imaging tests). [facility], [id number] 16:34:14* Test Item Value Reference Range Interpretation Comme nts LIPASE (test code = 8405310350) 45 U/L 0-220 Lab Interpretation (test cod e = 96413-8) Normal [facility]CBC with [id number] 16:21:12* Test Item Value Reference Range Interpretation Comme nts WBC (test code = 6690-2) See_Comment [Automated [employer]] The system which generated this result transmitted reference range: 4.30 - 11.10 10*3/?L. The reference range was not used to interpret this result as normal/abnormal. RBC (test code = 789-8) See_Comment [Automated [employer]] The system which generated this result transmitted reference range: 3.93 - 5.25 10*6/?L. The reference range was not used to interpret this result as normal/abnormal. HGB (test code = 718-7) 12.2 g/dL 11.6-15.0 HCT (test code = 4544-3) 39.0 % 35.7-45.2 MCV (test code = 787-2) 82.3 fL 80.6-95.5 MCH (test code = 785-6) 25.7 pg 25.9-32.8 L MCHC (test code = 786-4) 31.3 g/dL 31.6-35.1 L RDW-SD (test code = 45818-0) 54.4 fL 39.0-49.9 H RDW-CV (test code = 788-0) 18.3 % 12.0-15.5 H PLT (test code = 777-3) See_Comment H [Automated messa ge] The system which generated this result transmitted reference range: 166 - 358 10*3/?L. The reference range was not used to interpret this result as normal/abnormal. MPV (test code = 59079-3) 8.5 fL 9.5-12.9 L NRBC/100 WBC (test code = 8341787173) See_Comment [Automated [employer] ssage] The system which generated this result transmitted reference range: 0.0 - 10.0 /100 WBCs. The reference range was not used to interpret this result as normal/abnormal. NRBC x10^3 (test code = 4246956706) <0.01 See_Comment [Automated messa ge] The system which generated this result transmitted reference range: 10*3/?L. The reference range was not used to interpret this result as normal/abnormal. GRAN MAT (NEUT) % (test code = 770-8) 78.3 % IMM GRAN % (test code = 2109711905) 0.40 % LYMPH % (test code = 736-9) 15.4 % MONO % (test code = 5905-5) 4.8 % EOS % (test code = 713-8) 0.1 % BASO % (test code = 706-2) 1.0 % GRAN MAT x10^3(ANC) (test code = 4645042567) 7.15 10*3/uL 1.88-7.09 H IMM GRAN x10^3 (test code = 2279384618) 0.04 10*3/uL 0.00-0.06 LYMPH x10^3 (test code = 731-0) 1.41 10*3/uL 1.32-3.29 MONO x10^3 (test code = 742-7) 0.44 10*3/uL 0.33-0.92 EOS x10^3 (test code = 711-2) <0.03 0.03-0.39 L BASO x10^3 (test code = 704-7) 0.09 10*3/uL 0.01-0.07 H Lab Interpretation (test code = 08857-3) Abnormal [facility]
--- NOTE | 2023-07-13 16:07 | ER ---
Nurse's Notes [facility] Name: Heather Coon Age: 53 yrs Sex: Female : 1970 Arrival Date: 07/13/2023 Time: 15:26 Bed IW5 Private MD: Diagnosis: Low back pain;Chest pain, unspecified Presentation: 07/13 15:38 Chief complaint: Patient states: CP TODAY, FALL 3 DAYS AGO, BK SX 1 MONTH AGO. bp Coronavirus screen: At this time, the client does not indicate any symptoms associated with coronavirus-19. Ebola Screen: No symptoms or risks identified at this time. Initial Sepsis Screen: Does the patient meet any 2 criteria? No. Patient's initial sepsis screen is negative. Does the patient have a suspected source of infection? No. Patient's initial sepsis screen is negative. Risk Assessment: Do you want to hurt yourself or someone else? Patient reports no desire to harm self or others. Onset of symptoms is unknown. 15:38 Method Of Arrival: Wheelchair bp 15:38 Acuity: ANDER 3 bp Historical: - Allergies: 15:31 fluoxetine; bp 15:31 Green Tea; bp 15:31 Keppra; not an allergy; bp - PMHx: 15:31 Anxiety; Arthritis; Bipolar disorder; Cancer-Cervical; Chronic obstructive lung bp disease; Chronic pain; Congestive heart failure; Depression; Diverticulitis; Herniated Back Disc; Hypertension; intestinal mass; Myocardial infarction; pt reports hx of seizures; Spastic Muscles; stroke; - PSHx: 15:31 cervical fusion; Cholecystectomy; foot; Tonsillectomy; bp - Immunization history:: Adult Immunizations up to date. - Social history:: Smoking status: Patient reports the use of cigarette tobacco products, smokes one pack cigarettes per day. Vital Signs: 15:38 BP 142 / 87; Pulse 124; Resp 18; Temp 98; Pulse Ox 100% ; bp ED Course: 15:27 Patient arrived in ED. rg4 15:34 Gus Canela MD is Attending Physician. rt 15:38 Arm band placed on. bp 16:01 Triage completed. bp Administered Medications: No medications were administered Outcome: 16:06 Patient left the ED. ll1 16:06 AMA Left before signing form, ll1 16:06 Condition: stable 16:39 Patient left the ED. ll1 Signatures: Iveth Vitale rg4 Torrey Whittington RN RN bp Yanelis Currie RN RN ll1 Gus Canela MD MD rt Corrections: (The following items were deleted from the chart) 15:57 15:56 Chief complaint: ll1 ll1 16:38 16:06 Patient left the ED. 1 [facility]
--- NOTE | 2023-07-13 16:39 | EDPHYS ---
Physician Documentation [facility] Name: Heather Coon Age: 53 yrs Sex: Female : 1970 Arrival Date: 07/13/2023 Time: 15:26 Bed IW5 Private MD: ED Physician Gus Canela HPI: 07/13 17:08 This 53 yrs old Female presents to ER via Wheelchair with complaints of Chest Pain. rt 17:08 Patient presents to the ED with back pain following a fall without head injury or rt syncope about 3 days ago. Patient had recent back spinal fusion surgery, is worried that she injured something with the back as she has back and neck pain currently where she did not have any following the surgery. The patient states that she developed chest pain today that she attributes to the pain. Denies other acute complaints at this time, symptoms are moderate severity, aching in nature, nonradiating, no other aggravating or alleviating factors.. Historical: - Allergies: 15:31 fluoxetine; bp 15:31 Green Tea; bp 15:31 Keppra; not an allergy; bp - PMHx: 15:31 Anxiety; Arthritis; Bipolar disorder; Cancer-Cervical; Chronic obstructive lung bp disease; Chronic pain; Congestive heart failure; Depression; Diverticulitis; Herniated Back Disc; Hypertension; intestinal mass; Myocardial infarction; pt reports hx of seizures; Spastic Muscles; stroke; - PSHx: 15:31 cervical fusion; Cholecystectomy; foot; Tonsillectomy; bp - Immunization history:: Adult Immunizations up to date. - Social history:: Smoking status: Patient reports the use of cigarette tobacco products, smokes one pack cigarettes per day. ROS: 17:08 Constitutional: Negative for fever, chills, and weight loss, Respiratory: Negative for rt shortness of breath, cough, wheezing, and pleuritic chest pain, Abdomen/GI: Negative for abdominal pain, nausea, vomiting, diarrhea, and constipation, MS/Extremity: Negative for injury and deformity, Skin: Negative for injury, rash, and discoloration, Neuro: Negative for headache, weakness, numbness, tingling, and seizure, Psych: Negative for depression, anxiety, suicide ideation, homicidal ideation, and hallucinations, 17:08 Neck: Positive for pain at rest, Negative for stiffness, 17:08 Cardiovascular: Positive for chest pain, Negative for edema, 17:08 Back: Positive for pain at rest, Negative for injury or acute deformity, Exam: 17:08 Constitutional: This is a well developed, well nourished patient who is awake, alert, rt and in no acute distress. Head/Face: Normocephalic, atraumatic. Chest/axilla: Normal chest wall appearance and motion. Nontender with no deformity. No lesions are appreciated. Cardiovascular: Regular rate and rhythm with a normal S1 and S2. No gallops, murmurs, or rubs. Normal PMI, no JVD. No pulse deficits. Respiratory: Lungs have equal breath sounds bilaterally, clear to auscultation and percussion. No rales, rhonchi or wheezes noted. No increased work of breathing, no retractions or nasal flaring. Abdomen/GI: Soft, non-tender, with normal bowel sounds. No distension or tympany. No guarding or rebound. No evidence of tenderness throughout. Skin: Warm, dry with normal turgor. Normal color with no rashes, no lesions, and no evidence of cellulitis. MS/ Extremity: Pulses equal, no cyanosis. Neurovascular intact. Full, normal range of motion. Neuro: Awake and alert, GCS 15, oriented to person, place, time, and situation. Cranial nerves II-XII grossly intact. Motor strength 5/5 in all extremities. Sensory grossly intact. Cerebellar exam normal. Normal gait. 17:08 ECG was reviewed by the Attending Physician. Vital Signs: 15:38 BP 142 / 87; Pulse 124; Resp 18; Temp 98; Pulse Ox 100% ; bp MDM: 15:40 Patient medically screened. rt 17:08 Differential diagnosis: Acute OH, pneumonia, pneumothorax, back pain. Data reviewed: rt vital signs, nurses notes. ED course: Patient presents to the ED with chest pain. She was seen in the triage bay, stated that she did not wish to wait for labs to be performed. She left before I was able to talk to her regarding risks or benefits.. 07/13 15:38 Order name: EKG; Complete Time: 15:38 bp 07/13 15:38 Order name: EKG - Nurse/Tech; Complete Time: 15:38 bp 07/13 15:43 Order name: Cardiac monitoring rt 07/13 15:43 Order name: IV Saline Lock rt 07/13 15:43 Order name: Labs collected and sent rt 07/13 15:43 Order name: O2 Per Protocol rt 07/13 15:43 Order name: O2 Sat Monitoring rt EC:08 Rate is 125 beats/min. Rhythm is regular, Sinus tachycardia with No ectopy. Right axis rt deviation noted. VA interval is normal. QRS interval is normal. QT interval is normal. No Q waves. Administered Medications: No medications were administered Disposition Summary: 07/13/23 16:38 Left Against Medical Advice Notes: Location: Home rt Problem: new rt Symptoms: are unchanged rt Condition: Undetermined rt Diagnosis - Low back pain rt - Chest pain, unspecified rt Followup: rt - With: Private Physician - When: As needed - Reason: Signatures: Dispatcher [employer] Torrey Pereira RN RN Yanelis Leal RN RN ll1 Gus Canela MD MD rt Corrections: (The following items were deleted from the chart) 16:36 16:06 after being seen by provider ll1 rt 16:36 16:06 unknown ll1 rt
[2023-07-13 17:05] VITALS: BP 142/87; TEMP 98; O2SAT 100
--- NOTE | 2023-07-16 13:30 | EKG ---
Test Date: 2023-07-13 Test Time: 15:40:04 [facility]idential Care Facility Manager: LML MEASUREMENT RESULTS: Intervals: Rate: 125 UT: 132 QRSD: 80 QT: 342 QTc: 493 [place]: P: 70 UT: 132 QRS: 98 T: 67 INTERPRETIVE STATEMENTS: Sinus tachycardia Right atrial enlargement Rightward axis Pulmonary disease pattern Abnormal ECG Compared to ECG 06/21/2023 15:32:39 Right-axis deviation now present Electronically Signed On 07-16-23 13:24:17 FINANCIAL PLANNING ADVISER by Saad Leavitt
== END ==
LOC: ER 15:26
DX: R07.9 Chest pain, unspecified (principal); M54.50 Low back pain, unspecified; I10 Essential (primary) hypertension; F41.9 Anxiety disorder, unspecified; Z88.8 Allergy status to other drugs, medicaments and biological substances; Z91.018 Allergy to other foods
CPT/HCPCS: 93005; 99281

== ENCOUNTER → 2023-07-14 | Emergency (ER) | payer OTHER ==
--- OUTSIDE RECORDS SUMMARY | 2023-07-14 09:54 | XMS REPORT | Continuity of Care Document ---
Author Name Unknown Address [address] [facility] [place] [address] [facility] Address [address] [facility] [place] [address] Care Team Providers Care Associate Professor Of Engineering Name Role Phone MyahayleeAneta Guerrero Primary Care Physician AYDEE GO Attending Clinician Unavailable CARA BURGESS Attending Clinician Unavailab ADAM Cabrera Attending Clinician Unavailable THOMAS LOZOYA Attending Clinician Nina MARIAH Quiroga Attending Clinician Unavailable Cara Burgess MD Attending Clinician [phone] Aydee Go MD Attending Clinician [phone] System, Provider Not In Attending Clinician Unav Dallas Allen Attending Clinician UnavailAdam Vasques MD Attending Clinician [phone] Harry Newsome MD Attending Clinician [phone] Antwon Cote MD Attending Clinician +- [phone] Ramya MD, Yue Dumont Attending Clinician [phone] Tamica ELIZONDO, Connie Antonio Attending Clinician [phone] Jasen ELIZONDO, Mariah Attending Clinician [phone] Valerio ELIZONDO, Thomas Hopkins Attending Clinician CONNIE DAVEY Attending Clinician Unavailекатерина e JENNY, Alfonso MOSELEY Attending Clinician Unavailable Jennyshannon MITTAL, Alfonso Moseley Attending Clinician + [phone] RITCHIE WARREN Attending Clinician Unavailable Briana ELIZONDO, Ritchie Stoner Attending Clinician [phone] Rk CAMPOS, Blanca Attending Clinician [phone] Reji ELIZONDO, Halima Hummel Attending Clinician + [phone] Lucho ELIZONDO, Jen Olivia Attending Clinician [phone] Roxi ELIZONDO, Parrish Reyez Attending Clinici an PARRISH WHEATLEY Attending Clinician Unavaila LORENZA Mariscal Attending Clinician Unavailable Alcon ELIZONDO, Sav Attending Clinician [phone] Lorenza Lowry MD Attending Clinician [phone] Maria Teresa Nicole LVN Attending Clinician [phone] CHANTEL BOJORQUEZ Attending Clinician CHANTEL Kelly Attending Clinician Jack Ibrahim MD, Brandyn Otoole Attending Clinician [phone] SELINA MARTINES Attending Clinician Unavailable Sapna Vargas DO Attending Clinician + [phone] Tyrel ELIZONDO, Glory Katz Attending Clinician + Selina Martines MD Attending Clinician [phone] Chung Graham Attending Clinician U chelsi Pak MD, Jose Attending Clinician [phone] JOSE PAK Attending Clinician Unavailable NICHELLE VIRK Attending Clinician Unavaila Nichelle Lakhani Attending Clinician Doctor Unassigned, [place] Attending Clinician U chelsi Nava RN, Miky Attending Clinician Unavailab monroe SUAREZ Fabrice Attending Clinician [phone] Deo RUSSIAN HISTORY PROFESSOR, Lydia Attending Clinician [phone] Unknown, Attending Attending Clinician Unavailab le UNKNOWN, ATTENDING Attending Clinician Unavailab Anali Berg Attending Clinician [phone] Yehuda Arcos MD Attending Clinician [phone] CARA BURGESS Admitting Clinician Unavailab ADAM Cabrera Admitting Clinician Unavailable MARIAH ALDRIDGE Admitting Clinician Unavailable CONNIE DAVEY Admitting Clinician UnavailAlfonso Oh Admitting Clinician Unavailable RITCHIE WARREN Admitting Clinician Unavailable JEN GELLER Admitting Clinician Unavaila LORENZA Mariscal Admitting Clinician Unavailable Lorenza Lowry MD Admitting Clinician [phone] BRANDYN IBRAHIM Admitting Clinician Unavailable Brandyn Ibrahim MD Admitting Clinician [phone] GLORY ESTEVES Admitting Clinician Unav NICHELLE Padron Admitting Clinician Unavaila yaya Payers Payer Name Policy Type Policy Number Effective Date Expirati on Date Source MARVINVENKATTerry [id number] 2023 00:00:00 MEDICAID PENDING PENDING 2022 00:00:00 Problems Condition Name Condition Details Condition Category Status Onset Date Resolution Date Last Treatment Date Treating Clinician Comments Source Bilateral leg weakness Bilateral leg weakness Disease Active 2022-07 00:00: 00 [facility] Pneumonia Pneumonia Disease Active 2022-07 00:00: 00 [facility] Cavitary lesion of lung Cavitary lesion of lung Disease Active 2022-07 00:00: 00 [facility] Cervical myelopathy Cervical myelopathy Disease Recurre nce 2022-07 00:00: 00 [facility] Cervical disc disorder Cervical disc disorder Disease Active 2022-07 00:00: 00 [facility] Cord compressio n Cord compressio n Disease Recurre nce 0 9-11 00:00: 00 [facility] Cauda equina compressio n Cauda equina compressio n Disease Recurre nce 0 9-11 00:00: 00 [facility] Seizure Seizure Disease Recurre ore 1-14 00:00: 00 [facility] Cardiomyop athy Cardiomyop athy Disease Active 08-01 00:00: 00 [facility] NSVT (nonsustai keisha ventricula r tachycardi a) NSVT (nonsustai keisha ventricula r tachycardi a) Disease Active 08-01 00:00: 00 [facility] Chest pain, unspecifie d type Chest pain, unspecifie d type Disease Active 07-31 00:00: 00 [facility] Elevated brain natriureti c peptide (BNP) level Elevated brain natriureti c peptide (BNP) level Disease Active 07-31 00:00: 00 [facility] Coronary artery disease involving alutiiq coronary artery of alutiiq heart without angina pectoris Coronary artery disease involving alutiiq coronary artery of alutiiq heart without angina pectoris Disease Active 07-31 00:00: 00 [facility] Snores Snores Disease Active 07-31 00:00: 00 [facility] Cigarette smoker Cigarette smoker Disease Active 07-31 00:00: 00 [facility] Primary hypertensi on Primary hypertensi on Disease Active 07-31 00:00: 00 [facility] Other hyperlipid emia Other hyperlipid emia Disease Active 07-31 00:00: 00 [facility] Coronary artery disease involving alutiiq coronary artery of alutiiq heart without angina pectoris Coronary artery disease involving alutiiq coronary artery of alutiiq heart without angina pectoris Disease Active 07-31 00:00: 00 [facility] Chronic bilateral low back pain with bilateral sciatica Chronic bilateral low back pain with bilateral sciatica Disease Active 2021-07 0-17 00:00: 00 [facility] 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 Disease Active 04-15 00:00: 00 [facility] Neuroforam inal stenosis of cervical spine Neuroforam inal stenosis of cervical spine Disease Active 04-15 00:00: 00 [facility] Stroke-lik e symptoms Stroke-lik e symptoms Disease Active 04-13 00:00: 00 [facility] Bipolar disorder, in partial remission, most recent episode manic Bipolar disorder, in partial remission, most recent episode manic Disease Active 09-27 00:00: 00 [facility] Neuroforam inal stenosis of lumbar spine Neuroforam inal stenosis of lumbar spine Disease Active 09-27 00:00: 00 [facility] Bilateral acute otitis media, recurrence not specified, unspecifie d otitis media type Bilateral acute otitis media, recurrence not specified, unspecifie d otitis media type Disease Active 09-27 00:00: 00 [facility] Lumbar spinal stenosis Lumbar spinal stenosis Disease Active 09-27 00:00: 00 [facility] Right-side d low back pain with sciatica, sciatica laterality unspecifie d Right-side d low back pain with sciatica, sciatica laterality unspecifie d Disease Active 09-27 00:00: 00 [facility] Generalize d anxiety disorder Generalize d anxiety disorder Disease Active 09-27 00:00: 00 [facility] Agoraphobi a Agoraphobi a Disease Active 09-27 00:00: 00 [facility] Bipolar disorder, in partial remission, most recent episode manic Bipolar disorder, in partial remission, most recent episode manic Disease Active 09-27 00:00: 00 [facility] Obsessive compulsive disorder Obsessive compulsive disorder Disease Active 09-27 00:00: 00 [facility] Breast mass, left Breast mass, left Disease Active 09-17 00:00: 00 [facility] Anxiety Anxiety Disease Active 09-17 00:00: 00 [facility] Lower back pain Lower back pain Disease Active 09-17 00:00: 00 [facility] High blood pressure High blood pressure Disease Active 09-17 00:00: 00 [facility] COPD (chronic obstructiv e pulmonary disease) COPD (chronic obstructiv e pulmonary disease) Disease Active 09-17 00:00: 00 [facility] Obesity Obesity Disease Active 09-17 00:00: 00 [facility] Allergies, Adverse Reactions, Alerts Allergy Name Allergy Type Status Severity Reaction(s) Onset Date Inactive Date Treating Clinician Comments Source FLUOXETI NE Allergy Active 03-29 00:00: 00 [facility] GREEN TEA Allergy Active High Other - 00:00: 00 [facility] LEVETIRA CETAM Allergy Active High N\\T\\V - 00:00: 00 [facility] Fluoxeti ne Propensi ty to adverse reaction s Active - 00:00: 00 [facility] Green Tea Propensi ty to adverse reaction s Active - 00:00: 00 Seizure like activity [facility] Levetira cetam Propensi ty to adverse reaction s Active Nausea And Vomiting - 00:00: 00 Intensifi es seizure [facility] Green Tea Drug Allergy Active Other (See Comments) - 00:00: 00 Seizure like activity [facility] Levetira cetam Drug Allergy Active Nausea And Vomiting - 00:00: 00 Intensifi es seizure [facility] LEVETIRA CETAM DRUG INGREDI Active Other-Cmnt - 00:00: 00 [facility] Levetira cetam Propensi ty to adverse reaction s Active Other - See comments 11-17 00:00: 00 Makes seizures worse [facility] FLUOXETI NE Allergy Active Med Rash 1-14 00:00: 00 [facility] Green Tea Propensi ty to adverse reaction s Active 14 00:00: 00 [facility] Fluoxeti ne Propensi ty to adverse reaction s Active Rash 08-02 00:00: 00 [facility] GREEN TEA Allergy Active 14 00:00: 00 [facility] Fluoxeti ne Propensi ty to adverse reaction s Active Unknown - See comments 03-25 00:00: 00 [facility] FLUOXETI NE DRUG INGREDI Active Unknown-Cmnt 03-25 00:00: 00 [facility] DICLOFEN AC DRUG INGREDI Active HYPERTENSION 11-20 00:00: 00 [facility] Diclofen ac Propensi ty to adverse reaction s Active Hypertension 11-20 00:00: 00 [facility] GREEN TEA DRUG INGREDI Active Med Other-Cmnt 08-10 00:00: 00 [facility] Green Tea Propensi ty to adverse reaction s to drug Active Other - See comments 08-10 00:00: 00 Seizures [facility] FLUOXETI NE HCL DRUG INGREDI Active Hives 0 03-19 00:00: 00 [facility] Fluoxeti ne Hcl Propensi ty to adverse reaction s Active Hives 03-19 00:00: 00 [facility] Family History Family Member Diagnosis Comments Start Date Stop Date Sourc e Natural mother Alcohol abuse [facility] Natural mother Cancer [facility] Natural mother Diabetes [facility] Natural mother Heart disease [facility] Natural mother Hyperlipidemia [facility] Natural mother Kidney disease [facility] Natural mother Stroke [facility] Natural mother Alcohol abuse [facility] Natural mother Stroke [facility] Paternal uncle Diabetes [facility] Social History Social Habit Start Date Stop Date Quantity Comments Source History SDOH Social Connections Get Together [facility] History SDOH Social Connections [facility] History SDOH Social Connections Membership [facility] History SDOH Social Connections Meetings [facility] History SDOH Alcohol Frequency [facility] History SDOH Alcohol Std Drinks [facility] History SDOH Alcohol Binge [facility] History SDOH Housing Homeless Last Year [facility] Sexual orientation C [facility] Alcohol intake 2023-06-02 00:00:00 2023-06-02 00:00:00 .57 /d [facility] Exposure to SARS-CoV-2 (event) 2023-05-18 00:00:00 2023-05-28 07:28:00 Not sure [facility] Cigarettes smoked current (pack per day) - Reported 2023-05-26 00:00:00 2023-05-26 00:00:00 [facility] Tobacco use and exposure 2023-05-26 00:00:00 2023-05-26 00:00:00 Smokeless tobacco non-user [facility] Cigarette pack-years 2023-05-26 00:00:00 2023-05-26 00:00:00 [facility] History SDOH Housing Unable to Pay - In the last 12 months, was there a time when you were not able to pay the mortgage or rent on time? 2023-05-26 00:00:00 2023-05-26 00:00:00 Yes [facility] History of Social function 2023-05-26 00:00:00 2023-05-26 00:00:00 [facility] History of tobacco use 1987-05-22 00:00:00 2023-05-22 00:00:00 Cigarette Smoker [facility] History SDOH Housing Places Lived 2023-03-30 00:00:00 2023-03-30 00:00:00 1 [facility] Alcohol Comment 2023-03-29 00:00:00 2023-03-29 00:00:00 2x a week [facility] History SDOH Social Connections Phone 2022-08-01 00:00:00 2022-08-01 00:00:00 5 [facility] History SDOH Social Connections Living 2022-08-01 00:00:00 2022-08-01 00:00:00 5 [facility] History SDOH Physical Activity DPW 2022-08-01 00:00:00 2022-08-01 00:00:00 0 [facility] History SDOH Physical Activity MPS 2022-08-01 00:00:00 2022-08-01 00:00:00 0 [facility] History SDOH Financial 2022-08-01 00:00:00 2022-08-01 00:00:00 3 [facility] History SDOH Food Worry 2022-08-01 00:00:00 2022-08-01 00:00:00 1 [facility] History SDOH Food Scarcity 2022-08-01 00:00:00 2022-08-01 00:00:00 1 [facility] History SDOH Transport Med 2022-08-01 00:00:00 2022-08-01 00:00:00 2 [facility] History SDOH Transport Non-Med 2022-08-01 00:00:00 2022-08-01 00:00:00 2 [facility] Education 2022-07-31 00:00:00 2022-07-31 00:00:00 14 [facility] Sex Assigned At 1970 00:00:00 1970 00:00:00 [facility] Smoking Status Start Date Stop Date Source Ex-smoker 2023-05-26 00:00:00 2023-05-26 00:00:00 [facility] Smokes tobacco daily 2023-03-29 00:00:00 [facility] Medications Ordered Medication Name Filled Medication Name Start Date Stop Date Current Medication? Ordering Clinician Indication Dosage Frequency Signature (SIG) Comments Components Source tamsulosin (FLOMAX) 0.4 mg Cap 24 hr capsule 2022-07 00:00: 00 06-22 23:59 :00 No .4mg QD Take 1 capsule (0.4 mg total) by mouth daily for 5 days. [facility] tamsulosin (FLOMAX) 0.4 mg Cap 24 hr capsule 2022-07 00:00: 00 06-22 23:59 :00 Yes .4mg QD Take 1 capsule (0.4 mg total) by mouth daily for 5 days. [facility] tamsulosin (FLOMAX) 0.4 mg Cap 24 hr capsule 2022-07 00:00: 00 06-22 23:59 :00 Yes .4mg QD Take 1 capsule (0.4 mg total) by mouth daily for 5 days. [facility] metoprolol succinate (TOPROL-XL) 25 MG 24 hr tablet 2022-07 19:45: 32 Yes 25mg QD Take 1 tablet (25 mg total) by mouth daily. [facility] varenicline (CHANTIX) 1 mg tablet 2022-07 19:45: 32 Yes 1mg Q.5D Take 1 tablet (1 mg total) by mouth 2 (two) times daily Give with meals and with a full glass of water.. [facility] albuterol HFA (VENTOLIN HFA) 90 mcg/actuati on inhaler 2022-07 19:45: 32 Yes 1{puff} Inhale 1 puff by mouth via inhaler every 6 (six) hours as needed for Wheezing. [facility] fluticasone -umeclidin- vilanter (Trelegy Ellipta) 200-62.5-25 mcg DsDv 2022-07 19:45: 32 Yes QD Inhale by mouth via inhaler daily. [facility] atorvastati n (LIPITOR) 20 MG tablet 2022-07 19:45: 32 Yes 20mg QD Take 1 tablet (20 mg total) by mouth daily. [facility] metoprolol succinate (TOPROL-XL) 25 MG 24 hr tablet 2022-07 19:45: 32 Yes 25mg QD Take 1 tablet (25 mg total) by mouth daily. [facility] varenicline (CHANTIX) 1 mg tablet 2022-07 19:45: 32 Yes 1mg Q.5D Take 1 tablet (1 mg total) by mouth 2 (two) times daily Give with meals and with a full glass of water.. [facility] albuterol HFA (VENTOLIN HFA) 90 mcg/actuati on inhaler 2022-07 19:45: 32 Yes 1{puff} Inhale 1 puff by mouth via inhaler every 6 (six) hours as needed for Wheezing. [facility] fluticasone -umeclidin- vilanter (Trelegy Ellipta) 200-62.5-25 mcg DsDv 2022-07 19:45: 32 Yes QD Inhale by mouth via inhaler daily. [facility] atorvastati n (LIPITOR) 20 MG tablet 2022-07 19:45: 32 Yes 20mg QD Take 1 tablet (20 mg total) by mouth daily. [facility] metoprolol succinate (TOPROL-XL) 25 MG 24 hr tablet 2022-07 19:45: 32 Yes 25mg QD Take 1 tablet (25 mg total) by mouth daily. [facility] varenicline (CHANTIX) 1 mg tablet 2022-07 19:45: 32 Yes 1mg Q.5D Take 1 tablet (1 mg total) by mouth 2 (two) times daily Give with meals and with a full glass of water.. [facility] albuterol HFA (VENTOLIN HFA) 90 mcg/actuati on inhaler 2022-07 19:45: 32 Yes 1{puff} Inhale 1 puff by mouth via inhaler every 6 (six) hours as needed for Wheezing. [facility] fluticasone -umeclidin- vilanter (Trelegy Ellipta) 200-62.5-25 mcg DsDv 2022-07 19:45: 32 Yes QD Inhale by mouth via inhaler daily. [facility] atorvastati n (LIPITOR) 20 MG tablet 2022-07 19:45: 32 Yes 20mg QD Take 1 tablet (20 mg total) by mouth daily. [facility] acetaminoph en-codeine (TYLENOL #3) 300-30 mg per tablet 2022-07 18:02: 00 06-16 00:00 :00 No 1{tbl} Take 1 tablet by mouth every 4 (four) hours as needed for Pain. [facility] acetaminoph en-codeine (TYLENOL #3) 300-30 mg per tablet 2022-07 18:02: 00 06-16 00:00 :00 No 1{tbl} Take 1 tablet by mouth every 4 (four) hours as needed for Pain. [facility] acetaminoph en-codeine (TYLENOL #3) 300-30 mg per tablet 2022-07 18:02: 00 06-16 00:00 :00 No 1{tbl} Take 1 tablet by mouth every 4 (four) hours as needed for Pain. [facility] DULoxetine (CYMBALTA) 30 MG capsule 2022-07 00:00: 00 09-14 23:59 :00 Yes 30mg QD Take 1 capsule (30 mg total) by mouth daily for 90 days. [facility] DULoxetine (CYMBALTA) 30 MG capsule 2022-07 00:00: 00 09-14 23:59 :00 Yes 30mg QD Take 1 capsule (30 mg total) by mouth daily for 90 days. [facility] DULoxetine (CYMBALTA) 30 MG capsule 2022-07 00:00: 00 09-14 23:59 :00 Yes 30mg QD Take 1 capsule (30 mg total) by mouth daily for 90 days. [facility] metroNIDAZO LE (FLAGYL) 500 MG tablet 2022-07 00:00: 00 07-04 23:59 :00 No 500mg Take 1 tablet (500 mg total) by mouth every 8 (eight) hours for 18 days. [facility] ciprofloxac in HCl (CIPRO) 500 MG tablet 2022-07 00:00: 00 07-04 23:59 :00 No 500mg Q.5D Take 1 tablet (500 mg total) by mouth 2 (two) times daily for 18 days. [facility] metroNIDAZO LE (FLAGYL) 500 MG tablet 2022-07 00:00: 00 07-04 23:59 :00 Yes 500mg Take 1 tablet (500 mg total) by mouth every 8 (eight) hours for 18 days. [facility] ciprofloxac in HCl (CIPRO) 500 MG tablet 2022-07 00:00: 00 07-04 23:59 :00 Yes 500mg Q.5D Take 1 tablet (500 mg total) by mouth 2 (two) times daily for 18 days. [facility] metroNIDAZO LE (FLAGYL) 500 MG tablet 2022-07 00:00: 00 07-04 23:59 :00 Yes 500mg Take 1 tablet (500 mg total) by mouth every 8 (eight) hours for 18 days. [facility] ciprofloxac in HCl (CIPRO) 500 MG tablet 2022-07 00:00: 00 07-04 23:59 :00 Yes 500mg Q.5D Take 1 tablet (500 mg total) by mouth 2 (two) times daily for 18 days. [facility] cyclobenzap rine (FLEXERIL) 10 MG tablet 2022-07 00:00: 00 06-26 23:59 :00 No 10mg Q.[id number] 3D Take 1 tablet (10 mg total) by mouth 3 (three) times daily for 10 days. [facility] oxyCODONE (OXY-IR) 10 mg tablet 2022-07 00:00: 00 06-26 23:59 :00 No 10mg Take 1 tablet (10 mg total) by mouth every 8 (eight) hours as needed for up to 10 days. Max Daily Amount: 30 mg [facility] cyclobenzap rine (FLEXERIL) 10 MG tablet 2022-07 00:00: 00 06-26 23:59 :00 Yes 10mg Q.[id number] 3D Take 1 tablet (10 mg total) by mouth 3 (three) times daily for 10 days. [facility] oxyCODONE (OXY-IR) 10 mg tablet 2022-07 00:00: 00 06-26 23:59 :00 Yes 10mg Take 1 tablet (10 mg total) by mouth every 8 (eight) hours as needed for up to 10 days. Max Daily Amount: 30 mg [facility] cyclobenzap rine (FLEXERIL) 10 MG tablet 2022-07 00:00: 00 06-26 23:59 :00 Yes 10mg Q.[id number] 3D Take 1 tablet (10 mg total) by mouth 3 (three) times daily for 10 days. [facility] oxyCODONE (OXY-IR) 10 mg tablet 2022-07 00:00: 00 06-26 23:59 :00 Yes 10mg Take 1 tablet (10 mg total) by mouth every 8 (eight) hours as needed for up to 10 days. Max Daily Amount: 30 mg [facility] nystatin (MYCOSTATIN ) 100,000 unit/mL suspension 2022-07 00:00: 00 06-21 23:59 :00 No [id number] Q.25D Take 5 mLs (500,000 Units total) by mouth 4 (four) times daily for 5 days. [facility] nystatin (MYCOSTATIN ) 100,000 unit/mL suspension 2022-07 00:00: 00 06-21 23:59 :00 Yes [id number] Q.25D Take 5 mLs (500,000 Units total) by mouth 4 (four) times daily for 5 days. [facility] nystatin (MYCOSTATIN ) 100,000 unit/mL suspension 2022-07 00:00: 00 06-21 23:59 :00 Yes [id number] Q.25D Take 5 mLs (500,000 Units total) by mouth 4 (four) times daily for 5 days. [facility] dexAMETHaso ne (DECADRON) 2 MG tablet 2022-07 00:00: 00 06-08 23:59 :00 No 1mg Take 0.5 tablets (1 mg total) by mouth 2 (two) times daily with breakfast and dinner for 2 days. [facility] dexAMETHaso ne (DECADRON) 2 MG tablet 2022-07 00:00: 00 06-08 23:59 :00 Yes 1mg Take 0.5 tablets (1 mg total) by mouth 2 (two) times daily with breakfast and dinner for 2 days. [facility] dexAMETHaso ne (DECADRON) 2 MG tablet 2022-07 00:00: 00 06-08 23:59 :00 Yes 1mg Take 0.5 tablets (1 mg total) by mouth 2 (two) times daily with breakfast and dinner for 2 days. [facility] dexAMETHaso ne (DECADRON) 2 MG tablet 2022-07 00:00: 00 06-08 23:59 :00 No 1mg Take 0.5 tablets (1 mg total) by mouth 2 (two) times daily with breakfast and dinner for 2 days. [facility] dexAMETHaso ne (DECADRON) 2 MG tablet 2022-07 00:00: 00 06-08 23:59 :00 No 1mg Take 0.5 tablets (1 mg total) by mouth 2 (two) times daily with breakfast and dinner for 2 days. [facility] dexAMETHaso ne (DECADRON) 2 MG tablet 2022-07 00:00: 00 06-08 23:59 :00 No 1mg Take 0.5 tablets (1 mg total) by mouth 2 (two) times daily with breakfast and dinner for 2 days. [facility] dexAMETHaso ne (DECADRON) 2 MG tablet 2022-07 00:00: 00 06-06 23:59 :00 No 2mg Take 1 tablet (2 mg total) by mouth 2 (two) times daily with breakfast and dinner for 1 day. [facility] dexAMETHaso ne (DECADRON) 2 MG tablet 2022-07 00:00: 00 06-06 23:59 :00 Yes 2mg Take 1 tablet (2 mg total) by mouth 2 (two) times daily with breakfast and dinner for 1 day. [facility] dexAMETHaso ne (DECADRON) 2 MG tablet 2022-07 00:00: 00 06-06 23:59 :00 Yes 2mg Take 1 tablet (2 mg total) by mouth 2 (two) times daily with breakfast and dinner for 1 day. [facility] dexAMETHaso ne (DECADRON) 2 MG tablet 2022-07 00:00: 00 06-06 23:59 :00 No 2mg Take 1 tablet (2 mg total) by mouth 2 (two) times daily with breakfast and dinner for 1 day. [facility] dexAMETHaso ne (DECADRON) 2 MG tablet 2022-07 00:00: 00 06-06 23:59 :00 No 2mg Take 1 tablet (2 mg total) by mouth 2 (two) times daily with breakfast and dinner for 1 day. [facility] dexAMETHaso ne (DECADRON) 2 MG tablet 2022-07 00:00: 00 06-06 23:59 :00 No 2mg Take 1 tablet (2 mg total) by mouth 2 (two) times daily with breakfast and dinner for 1 day. [facility] metoprolol succinate (TOPROL-XL) 25 MG 24 hr tablet 2022-07 17:44: 21 Yes 25mg QD Take 1 tablet (25 mg total) by mouth daily. [facility] varenicline (CHANTIX) 1 mg tablet 2022-07 17:44: 21 Yes 1mg Q.5D Take 1 tablet (1 mg total) by mouth 2 (two) times daily Give with meals and with a full glass of water.. [facility] albuterol HFA (VENTOLIN HFA) 90 mcg/actuati on inhaler 2022-07 17:44: 21 Yes 1{puff} Inhale 1 puff by mouth via inhaler every 6 (six) hours as needed for Wheezing. [facility] fluticasone -umeclidin- vilanter (Trelegy Ellipta) 200-62.5-25 mcg DsDv 2022-07 17:44: 21 Yes QD Inhale by mouth via inhaler daily. [facility] atorvastati n (LIPITOR) 20 MG tablet 2022-07 17:44: 21 Yes 20mg QD Take 1 tablet (20 mg total) by mouth daily. [facility] acetaminoph en-codeine (TYLENOL #3) 300-30 mg per tablet 2022-07 17:44: 21 Yes 1{tbl} Take 1 tablet by mouth every 4 (four) hours as needed for Pain. [facility] metoprolol succinate (TOPROL-XL) 25 MG 24 hr tablet 2022-07 17:44: 21 Yes 25mg QD Take 1 tablet (25 mg total) by mouth daily. [facility] varenicline (CHANTIX) 1 mg tablet 2022-07 17:44: 21 Yes 1mg Q.5D Take 1 tablet (1 mg total) by mouth 2 (two) times daily Give with meals and with a full glass of water.. [facility] albuterol HFA (VENTOLIN HFA) 90 mcg/actuati on inhaler 2022-07 17:44: 21 Yes 1{puff} Inhale 1 puff by mouth via inhaler every 6 (six) hours as needed for Wheezing. [facility] fluticasone -umeclidin- vilanter (Trelegy Ellipta) 200-62.5-25 mcg DsDv 2022-07 17:44: 21 Yes QD Inhale by mouth via inhaler daily. [facility] atorvastati n (LIPITOR) 20 MG tablet 2022-07 17:44: 21 Yes 20mg QD Take 1 tablet (20 mg total) by mouth daily. [facility] acetaminoph en-codeine (TYLENOL #3) 300-30 mg per tablet 2022-07 17:44: 21 Yes 1{tbl} Take 1 tablet by mouth every 4 (four) hours as needed for Pain. [facility] metoprolol succinate (TOPROL-XL) 25 MG 24 hr tablet 2022-07 17:44: 21 Yes 25mg QD Take 1 tablet (25 mg total) by mouth daily. [facility] varenicline (CHANTIX) 1 mg tablet 2022-07 17:44: 21 Yes 1mg Q.5D Take 1 tablet (1 mg total) by mouth 2 (two) times daily Give with meals and with a full glass of water.. [facility] albuterol HFA (VENTOLIN HFA) 90 mcg/actuati on inhaler 2022-07 17:44: 21 Yes 1{puff} Inhale 1 puff by mouth via inhaler every 6 (six) hours as needed for Wheezing. [facility] fluticasone -umeclidin- vilanter (Trelegy Ellipta) 200-62.5-25 mcg DsDv 2022-07 17:44: 21 Yes QD Inhale by mouth via inhaler daily. [facility] atorvastati n (LIPITOR) 20 MG tablet 2022-07 17:44: 21 Yes 20mg QD Take 1 tablet (20 mg total) by mouth daily. [facility] acetaminoph en-codeine (TYLENOL #3) 300-30 mg per tablet 2022-07 17:44: 21 Yes 1{tbl} Take 1 tablet by mouth every 4 (four) hours as needed for Pain. [facility] senna (SENOKOT) 8.6 mg tablet 2022-07 00:00: 00 06-18 23:59 :00 No 17.2mg Q.5D Take 2 tablets (17.2 mg total) by mouth 2 (two) times daily for 14 days. [facility] senna (SENOKOT) 8.6 mg tablet 2022-07 00:00: 00 06-18 23:59 :00 Yes 17.2mg Q.5D Take 2 tablets (17.2 mg total) by mouth 2 (two) times daily for 14 days. [facility] senna (SENOKOT) 8.6 mg tablet 2022-07 00:00: 00 06-18 23:59 :00 Yes 17.2mg Q.5D Take 2 tablets (17.2 mg total) by mouth 2 (two) times daily for 14 days. [facility] senna (SENOKOT) 8.6 mg tablet 2022-07 00:00: 00 06-18 23:59 :00 Yes 17.2mg Q.5D Take 2 tablets (17.2 mg total) by mouth 2 (two) times daily for 14 days. [facility] senna (SENOKOT) 8.6 mg tablet 2022-07 00:00: 00 06-18 23:59 :00 Yes 17.2mg Q.5D Take 2 tablets (17.2 mg total) by mouth 2 (two) times daily for 14 days. [facility] senna (SENOKOT) 8.6 mg tablet 2022-07 00:00: 00 06-18 23:59 :00 No 17.2mg Q.5D Take 2 tablets (17.2 mg total) by mouth 2 (two) times daily for 14 days. [facility] cyclobenzap rine (FLEXERIL) 10 MG tablet 2022-07 00:00: 00 06-16 00:00 :00 No 10mg Q.[id number] 3D Take 1 tablet (10 mg total) by mouth 3 (three) times daily for 10 days. [facility] methocarbam oL (ROBAXIN) 500 MG tablet 2022-07 00:00: 00 06-16 00:00 :00 No 500mg Q.25D Take 1 tablet (500 mg total) by mouth 4 (four) times daily for 10 days. [facility] cyclobenzap rine (FLEXERIL) 10 MG tablet 2022-07 00:00: 00 06-16 00:00 :00 No 10mg Q.[id number] 3D Take 1 tablet (10 mg total) by mouth 3 (three) times daily for 10 days. [facility] methocarbam oL (ROBAXIN) 500 MG tablet 2022-07 00:00: 00 06-16 00:00 :00 No 500mg Q.25D Take 1 tablet (500 mg total) by mouth 4 (four) times daily for 10 days. [facility] cyclobenzap rine (FLEXERIL) 10 MG tablet 2022-07 00:00: 00 06-16 00:00 :00 No 10mg Q.36404534 [id number] 3D Take 1 tablet (10 mg total) by mouth 3 (three) times daily for 10 days. [facility] methocarbam oL (ROBAXIN) 500 MG tablet 2022-07 00:00: 00 06-16 00:00 :00 No 500mg Q.25D Take 1 tablet (500 mg total) by mouth 4 (four) times daily for 10 days. [facility] cyclobenzap rine (FLEXERIL) 10 MG tablet 2022-07 00:00: 00 06-14 23:59 :00 Yes 10mg Q.70013600 [id number] 3D Take 1 tablet (10 mg total) by mouth 3 (three) times daily for 10 days. [facility] methocarbam oL (ROBAXIN) 500 MG tablet 2022-07 00:00: 00 06-14 23:59 :00 Yes 500mg Q.25D Take 1 tablet (500 mg total) by mouth 4 (four) times daily for 10 days. [facility] cyclobenzap rine (FLEXERIL) 10 MG tablet 2022-07 00:00: 00 06-14 23:59 :00 Yes 10mg Q.[id number] 3D Take 1 tablet (10 mg total) by mouth 3 (three) times daily for 10 days. [facility] methocarbam oL (ROBAXIN) 500 MG tablet 2022-07 00:00: 00 06-14 23:59 :00 Yes 500mg Q.25D Take 1 tablet (500 mg total) by mouth 4 (four) times daily for 10 days. [facility] cyclobenzap rine (FLEXERIL) 10 MG tablet 2022-07 00:00: 00 06-14 23:59 :00 Yes 10mg Q.10436205 [id number] 3D Take 1 tablet (10 mg total) by mouth 3 (three) times daily for 10 days. [facility] methocarbam oL (ROBAXIN) 500 MG tablet 2022-07 00:00: 06-14 23:59 :00 Yes 500mg Q.25D Take 1 tablet (500 mg total) by mouth 4 (four) times daily for 10 days. [facility] lactulose (CHRONULAC) 20 gram/30 mL solution 2022-07 00:00: 00 06-11 23:59 :00 No 20g Q.[id number] 3D Take 30 mLs (20 g total) by mouth 3 (three) times daily for 7 days. [facility] ondansetron (ZOFRAN-ODT ) 4 MG disintegrat ing tablet 2022-07 00:00: 00 06-11 23:59 :00 No 4mg Take 1 tablet (4 mg total) by mouth every 6 (six) hours as needed for up to 7 days. [facility] lactulose (CHRONULAC) 20 gram/30 mL solution 2022-07 00:00: 00 06-11 23:59 :00 Yes 20g Q.[id number] 3D Take 30 mLs (20 g total) by mouth 3 (three) times daily for 7 days. [facility] ondansetron (ZOFRAN-ODT ) 4 MG disintegrat ing tablet 2022-07 00:00: 00 06-11 23:59 :00 Yes 4mg Take 1 tablet (4 mg total) by mouth every 6 (six) hours as needed for up to 7 days. [facility] lactulose (CHRONULAC) 20 gram/30 mL solution 2022-07 00:00: 00 06-11 23:59 :00 Yes 20g Q.[id number] 3D Take 30 mLs (20 g total) by mouth 3 (three) times daily for 7 days. [facility] ondansetron (ZOFRAN-ODT ) 4 MG disintegrat ing tablet 2022-07 00:00: 00 06-11 23:59 :00 Yes 4mg Take 1 tablet (4 mg total) by mouth every 6 (six) hours as needed for up to 7 days. [facility] lactulose (CHRONULAC) 20 gram/30 mL solution 2022-07 00:00: 00 06-11 23:59 :00 No 20g Q.[id number] 3D Take 30 mLs (20 g total) by mouth 3 (three) times daily for 7 days. [facility] ondansetron (ZOFRAN-ODT ) 4 MG disintegrat ing tablet 2022-07 00:00: 00 06-11 23:59 :00 No 4mg Take 1 tablet (4 mg total) by mouth every 6 (six) hours as needed for up to 7 days. [facility] lactulose (CHRONULAC) 20 gram/30 mL solution 2022-07 00:00: 00 06-11 23:59 :00 No 20g Q.[id number] 3D Take 30 mLs (20 g total) by mouth 3 (three) times daily for 7 days. [facility] ondansetron (ZOFRAN-ODT ) 4 MG disintegrat ing tablet 2022-07 00:00: 00 06-11 23:59 :00 No 4mg Take 1 tablet (4 mg total) by mouth every 6 (six) hours as needed for up to 7 days. [facility] lactulose (CHRONULAC) 20 gram/30 mL solution 2022-07 00:00: 00 06-11 23:59 :00 No 20g Q.88154561 [id number] 3D Take 30 mLs (20 g total) by mouth 3 (three) times daily for 7 days. [facility] ondansetron (ZOFRAN-ODT ) 4 MG disintegrat ing tablet 2022-07 00:00: 00 06-11 23:59 :00 No 4mg Take 1 tablet (4 mg total) by mouth every 6 (six) hours as needed for up to 7 days. [facility] metoprolol succinate (TOPROL-XL) 25 MG 24 hr tablet 2022-07 15:23: 22 Yes 25mg QD Take 1 tablet (25 mg total) by mouth daily. [facility] varenicline (CHANTIX) 1 mg tablet 2022-07 15:23: 22 Yes 1mg Q.5D Take 1 tablet (1 mg total) by mouth 2 (two) times daily Give with meals and with a full glass of water.. [facility] albuterol HFA (VENTOLIN HFA) 90 mcg/actuati on inhaler 2022-07 15:23: 22 Yes 1{puff} Inhale 1 puff by mouth via inhaler every 6 (six) hours as needed for Wheezing. [facility] fluticasone -umeclidin- vilanter (Trelegy Ellipta) 200-62.5-25 mcg DsDv 2022-07 15:23: 22 Yes QD Inhale by mouth via inhaler daily. [facility] atorvastati n (LIPITOR) 20 MG tablet 2022-07 15:23: 22 Yes 20mg QD Take 1 tablet (20 mg total) by mouth daily. [facility] acetaminoph en-codeine (TYLENOL #3) 300-30 mg per tablet 2022-07 15:23: 22 Yes 1{tbl} Take 1 tablet by mouth every 4 (four) hours as needed for Pain. [facility] acetaminoph en-codeine (TYLENOL #3) 300-30 mg per tablet 2022-07 09:42: 02 Yes 1{tbl} Take 1 tablet by mouth every 4 (four) hours as needed for Pain. Max Daily Amount: 6 tablets [facility] acetaminoph en-codeine (TYLENOL #3) 300-30 mg per tablet 2022-07 09:42: 02 Yes 1{tbl} Take 1 tablet by mouth every 4 (four) hours as needed for Pain. Max Daily Amount: 6 tablets [facility] varenicline (CHANTIX) 1 mg tablet 2022-07 09:40: 04 Yes 1mg Q.5D Take 1 tablet (1 mg total) by mouth 2 (two) times daily Give with meals and with a full glass of water.. [facility] albuterol HFA (VENTOLIN HFA) 90 mcg/actuati on inhaler 2022-07 09:40: 04 Yes 1{puff} Inhale 1 puff by mouth via inhaler every 6 (six) hours as needed for Wheezing. [facility] fluticasone -umeclidin- vilanter (Trelegy Ellipta) 200-62.5-25 mcg DsDv 2022-07 09:40: 04 Yes QD Inhale by mouth via inhaler daily. [facility] atorvastati n (LIPITOR) 20 MG tablet 2022-07 09:40: 04 Yes 20mg QD Take 1 tablet (20 mg total) by mouth daily. [facility] varenicline (CHANTIX) 1 mg tablet 2022-07 09:40: 04 Yes 1mg Q.5D Take 1 tablet (1 mg total) by mouth 2 (two) times daily Give with meals and with a full glass of water.. [facility] albuterol HFA (VENTOLIN HFA) 90 mcg/actuati on inhaler 2022-07 09:40: 04 Yes 1{puff} Inhale 1 puff by mouth via inhaler every 6 (six) hours as needed for Wheezing. [facility] fluticasone -umeclidin- vilanter (Trelegy Ellipta) 200-62.5-25 mcg DsDv 2022-07 09:40: 04 Yes QD Inhale by mouth via inhaler daily. [facility] atorvastati n (LIPITOR) 20 MG tablet 2022-07 09:40: 04 Yes 20mg QD Take 1 tablet (20 mg total) by mouth daily. [facility] metoprolol succinate (TOPROL-XL) 25 MG 24 hr tablet 2022-07 09:13: 28 Yes 25mg QD Take 1 tablet (25 mg total) by mouth daily. [facility] metoprolol succinate (TOPROL-XL) 25 MG 24 hr tablet 2022-07 09:13: 28 Yes 25mg QD Take 1 tablet (25 mg total) by mouth daily. [facility] furosemide (LASIX) 20 MG tablet 9-15 00:00: 00 04-02 23:59 :00 No 20mg QD Take 1 tablet (20 mg total) by mouth daily. [facility] furosemide (LASIX) 20 MG tablet 2022-0 -15 00:00: 00 04-02 23:59 :00 No 20mg QD Take 1 tablet (20 mg total) by mouth daily. [facility] DULoxetine (CYMBALTA) 30 MG capsule 2022-0 -15 00:00: 00 04-02 23:59 :00 No 30mg QD Take 1 capsule (30 mg total) by mouth daily. [facility] lisinopriL (PRINIVIL,Z ESTRIL) 5 MG tablet 0 15 00:00: 00 04-02 23:59 :00 No 5mg QD Take 1 tablet (5 mg total) by mouth daily. [facility] furosemide (LASIX) 20 MG tablet 0 -15 00:00: 00 04-02 23:59 :00 No 20mg QD Take 1 tablet (20 mg total) by mouth daily. [facility] DULoxetine (CYMBALTA) 30 MG capsule 2022-0 -15 00:00: 00 04-02 23:59 :00 No 30mg QD Take 1 capsule (30 mg total) by mouth daily. [facility] lisinopriL (PRINIVIL,Z ESTRIL) 5 MG tablet 0 -15 00:00: 00 04-02 23:59 :00 No 5mg QD Take 1 tablet (5 mg total) by mouth daily. [facility] furosemide (LASIX) 20 MG tablet 2022-0 -15 00:00: 00 04-02 23:59 :00 No 20mg QD Take 1 tablet (20 mg total) by mouth daily. [facility] DULoxetine (CYMBALTA) 30 MG capsule 2022-0 9-15 00:00: 00 04-02 23:59 :00 No 30mg QD Take 1 capsule (30 mg total) by mouth daily. [facility] lisinopriL (PRINIVIL,Z ESTRIL) 5 MG tablet 2022-0 -15 00:00: 00 04-02 23:59 :00 No 5mg QD Take 1 tablet (5 mg total) by mouth daily. [facility] furosemide (LASIX) 20 MG tablet 0 -15 00:00: 00 04-02 23:59 :00 No 20mg QD Take 1 tablet (20 mg total) by mouth daily. [facility] DULoxetine (CYMBALTA) 30 MG capsule 0 -15 00:00: 00 04-02 23:59 :00 No 30mg QD Take 1 capsule (30 mg total) by mouth daily. [facility] lisinopriL (PRINIVIL,Z ESTRIL) 5 MG tablet 04-03 00:00: 00 04-02 23:59 :00 No 5mg QD Take 1 tablet (5 mg total) by mouth daily. [facility] furosemide (LASIX) 20 MG tablet 04-03 00:00: 00 04-02 23:59 :00 No 20mg QD Take 1 tablet (20 mg total) by mouth daily. [facility] DULoxetine (CYMBALTA) 30 MG capsule 2022-0 -15 00:00: 00 04-02 23:59 :00 No 30mg QD Take 1 capsule (30 mg total) by mouth daily. [facility] lisinopriL (PRINIVIL,Z ESTRIL) 5 MG tablet 15 00:00: 00 04-02 23:59 :00 No 5mg QD Take 1 tablet (5 mg total) by mouth daily. [facility] furosemide (LASIX) 20 MG tablet 2022-0 -15 00:00: 00 04-02 23:59 :00 No 20mg QD Take 1 tablet (20 mg total) by mouth daily. [facility] DULoxetine (CYMBALTA) 30 MG capsule 2022-0 -15 00:00: 00 04-02 23:59 :00 No 30mg QD Take 1 capsule (30 mg total) by mouth daily. [facility] lisinopriL (PRINIVIL,Z ESTRIL) 5 MG tablet 2022-0 9-15 00:00: 00 04-02 23:59 :00 No 5mg QD Take 1 tablet (5 mg total) by mouth daily. [facility] furosemide (LASIX) 20 MG tablet 2022-0 9-15 00:00: 00 04-02 23:59 :00 No 20mg QD Take 1 tablet (20 mg total) by mouth daily. [facility] DULoxetine (CYMBALTA) 30 MG capsule 2022-0 9-15 00:00: 00 04-02 23:59 :00 No 30mg QD Take 1 capsule (30 mg total) by mouth daily. [facility] lisinopriL (PRINIVIL,Z ESTRIL) 5 MG tablet 2022-0 9-15 00:00: 00 04-02 23:59 :00 No 5mg QD Take 1 tablet (5 mg total) by mouth daily. [facility] furosemide (LASIX) 20 MG tablet 2022-0 -15 00:00: 00 04-02 23:59 :00 No 20mg QD Take 1 tablet (20 mg total) by mouth daily. [facility] DULoxetine (CYMBALTA) 30 MG capsule 2022-0 -15 00:00: 00 04-02 23:59 :00 No 30mg QD Take 1 capsule (30 mg total) by mouth daily. [facility] lisinopriL (PRINIVIL,Z ESTRIL) 5 MG tablet 2022-0 -15 00:00: 00 04-02 23:59 :00 No 5mg QD Take 1 tablet (5 mg total) by mouth daily. [facility] furosemide (LASIX) 20 MG tablet 2022-0 9-15 00:00: 00 04-02 23:59 :00 No 20mg QD Take 1 tablet (20 mg total) by mouth daily. [facility] DULoxetine (CYMBALTA) 30 MG capsule 2022-0 9-15 00:00: 00 04-02 23:59 :00 No 30mg QD Take 1 capsule (30 mg total) by mouth daily. [facility] lisinopriL (PRINIVIL,Z ESTRIL) 5 MG tablet 0 -15 00:00: 00 04-02 23:59 :00 No 5mg QD Take 1 tablet (5 mg total) by mouth daily. [facility] furosemide (LASIX) 20 MG tablet 0 -15 00:00: 00 04-02 23:59 :00 No 20mg QD Take 1 tablet (20 mg total) by mouth daily. [facility] DULoxetine (CYMBALTA) 30 MG capsule 0 -15 00:00: 00 04-02 23:59 :00 No 30mg QD Take 1 capsule (30 mg total) by mouth daily. [facility] furosemide (LASIX) 20 MG tablet 2022-0 -15 00:00: 00 04-02 23:59 :00 No 20mg QD Take 1 tablet (20 mg total) by mouth daily. [facility] DULoxetine (CYMBALTA) 30 MG capsule 0 -15 00:00: 00 04-02 23:59 :00 No 30mg QD Take 1 capsule (30 mg total) by mouth daily. [facility] furosemide (LASIX) 20 MG tablet 0 -15 00:00: 00 04-02 23:59 :00 No 20mg QD Take 1 tablet (20 mg total) by mouth daily. [facility] DULoxetine (CYMBALTA) 30 MG capsule 0 -15 00:00: 00 04-02 23:59 :00 No 30mg QD Take 1 capsule (30 mg total) by mouth daily. [facility] furosemide (LASIX) 20 MG tablet 2022-0 -15 00:00: 00 04-02 23:59 :00 No 20mg QD Take 1 tablet (20 mg total) by mouth daily. [facility] DULoxetine (CYMBALTA) 30 MG capsule 2022-0 9-15 00:00: 00 04-02 23:59 :00 No 30mg QD Take 1 capsule (30 mg total) by mouth daily. [facility] furosemide (LASIX) 20 MG tablet 04-03 00:00: 00 04-02 23:59 :00 No 20mg QD Take 1 tablet (20 mg total) by mouth daily. [facility] furosemide (LASIX) 20 MG tablet 04-03 00:00: 00 04-02 23:59 :00 No 20mg QD Take 1 tablet (20 mg total) by mouth daily. [facility] aspirin 81 MG EC tablet 04-03 00:00: 00 07-02 23:59 :00 No 81mg QD Take 1 tablet (81 mg total) by mouth daily for 90 days. [facility] divalproex (DEPAKOTE) 500 MG EC tablet 04-03 00:00: 00 07-02 23:59 :00 No 500mg Q.5D Take 1 tablet (500 mg total) by mouth 2 (two) times daily for 90 days. [facility] gabapentin (NEURONTIN) 300 MG capsule 04-03 00:00: 00 07-02 23:59 :00 No 300mg Q.[id number] 3D Take 1 capsule (300 mg total) by mouth 3 (three) times daily for 90 days. [facility] aspirin 81 MG EC tablet 04-03 00:00: 00 07-02 23:59 :00 No 81mg QD Take 1 tablet (81 mg total) by mouth daily for 90 days. [facility] divalproex (DEPAKOTE) 500 MG EC tablet 04-03 00:00: 00 07-02 23:59 :00 No 500mg Q.5D Take 1 tablet (500 mg total) by mouth 2 (two) times daily for 90 days. [facility] gabapentin (NEURONTIN) 300 MG capsule 04-03 00:00: 00 07-02 23:59 :00 No 300mg Q.[id number] 3D Take 1 capsule (300 mg total) by mouth 3 (three) times daily for 90 days. [facility] aspirin 81 MG EC tablet 04-03 00:00: 00 07-02 23:59 :00 No 81mg QD Take 1 tablet (81 mg total) by mouth daily for 90 days. [facility] divalproex (DEPAKOTE) 500 MG EC tablet 04-03 00:00: 00 07-02 23:59 :00 No 500mg Q.5D Take 1 tablet (500 mg total) by mouth 2 (two) times daily for 90 days. [facility] gabapentin (NEURONTIN) 300 MG capsule 04-03 00:00: 00 07-02 23:59 :00 No 300mg Q.[id number] [id number] 3D Take 1 capsule (300 mg total) by mouth 3 (three) times daily for 90 days. [facility] aspirin 81 MG EC tablet 04-03 00:00: 00 07-02 23:59 :00 No 81mg QD Take 1 tablet (81 mg total) by mouth daily for 90 days. [facility] divalproex (DEPAKOTE) 500 MG EC tablet 04-03 00:00: 00 07-02 23:59 :00 No 500mg Q.5D Take 1 tablet (500 mg total) by mouth 2 (two) times daily for 90 days. [facility] gabapentin (NEURONTIN) 300 MG capsule 04-03 00:00: 00 07-02 23:59 :00 No 300mg Q.[id number] 3D Take 1 capsule (300 mg total) by mouth 3 (three) times daily for 90 days. [facility] aspirin 81 MG EC tablet 04-03 00:00: 00 07-02 23:59 :00 No 81mg QD Take 1 tablet (81 mg total) by mouth daily for 90 days. [facility] divalproex (DEPAKOTE) 500 MG EC tablet 04-03 00:00: 00 07-02 23:59 :00 No 500mg Q.5D Take 1 tablet (500 mg total) by mouth 2 (two) times daily for 90 days. [facility] gabapentin (NEURONTIN) 300 MG capsule 04-03 00:00: 00 07-02 23:59 :00 No 300mg Q.[id number] 3D Take 1 capsule (300 mg total) by mouth 3 (three) times daily for 90 days. [facility] aspirin 81 MG EC tablet 04-03 00:00: 00 07-02 23:59 :00 No 81mg QD Take 1 tablet (81 mg total) by mouth daily for 90 days. [facility] divalproex (DEPAKOTE) 500 MG EC tablet 04-03 00:00: 00 07-02 23:59 :00 No 500mg Q.5D Take 1 tablet (500 mg total) by mouth 2 (two) times daily for 90 days. [facility] gabapentin (NEURONTIN) 300 MG capsule 04-03 00:00: 00 07-02 23:59 :00 No 300mg Q.[id number] 3D Take 1 capsule (300 mg total) by mouth 3 (three) times daily for 90 days. [facility] aspirin 81 MG EC tablet 04-03 00:00: 00 07-02 23:59 :00 No 81mg QD Take 1 tablet (81 mg total) by mouth daily for 90 days. [facility] divalproex (DEPAKOTE) 500 MG EC tablet 04-03 00:00: 00 07-02 23:59 :00 No 500mg Q.5D Take 1 tablet (500 mg total) by mouth 2 (two) times daily for 90 days. [facility] gabapentin (NEURONTIN) 300 MG capsule 04-03 00:00: 00 07-02 23:59 :00 No 300mg Q.[id number] 3D Take 1 capsule (300 mg total) by mouth 3 (three) times daily for 90 days. [facility] aspirin 81 MG EC tablet 04-03 00:00: 00 07-02 23:59 :00 No 81mg QD Take 1 tablet (81 mg total) by mouth daily for 90 days. [facility] divalproex (DEPAKOTE) 500 MG EC tablet 04-03 00:00: 00 07-02 23:59 :00 No 500mg Q.5D Take 1 tablet (500 mg total) by mouth 2 (two) times daily for 90 days. [facility] gabapentin (NEURONTIN) 300 MG capsule 04-03 00:00: 00 07-02 23:59 :00 No 300mg Q.[id number] 3D Take 1 capsule (300 mg total) by mouth 3 (three) times daily for 90 days. [facility] aspirin 81 MG EC tablet 04-03 00:00: 00 07-02 23:59 :00 No 81mg QD Take 1 tablet (81 mg total) by mouth daily for 90 days. [facility] divalproex (DEPAKOTE) 500 MG EC tablet 04-03 00:00: 00 07-02 23:59 :00 No 500mg Q.5D Take 1 tablet (500 mg total) by mouth 2 (two) times daily for 90 days. [facility] gabapentin (NEURONTIN) 300 MG capsule 04-03 00:00: 00 07-02 23:59 :00 No 300mg Q.[id number] 3D Take 1 capsule (300 mg total) by mouth 3 (three) times daily for 90 days. [facility] aspirin 81 MG EC tablet 04-03 00:00: 00 07-02 23:59 :00 No 81mg QD Take 1 tablet (81 mg total) by mouth daily for 90 days. [facility] divalproex (DEPAKOTE) 500 MG EC tablet 04-03 00:00: 00 07-02 23:59 :00 No 500mg Q.5D Take 1 tablet (500 mg total) by mouth 2 (two) times daily for 90 days. [facility] gabapentin (NEURONTIN) 300 MG capsule 04-03 00:00: 00 07-02 23:59 :00 No 300mg Q.[id number] 3D Take 1 capsule (300 mg total) by mouth 3 (three) times daily for 90 days. [facility] aspirin 81 MG EC tablet 04-03 00:00: 00 07-02 23:59 :00 No 81mg QD Take 1 tablet (81 mg total) by mouth daily for 90 days. [facility] divalproex (DEPAKOTE) 500 MG EC tablet 04-03 00:00: 00 07-02 23:59 :00 No 500mg Q.5D Take 1 tablet (500 mg total) by mouth 2 (two) times daily for 90 days. [facility] gabapentin (NEURONTIN) 300 MG capsule 04-03 00:00: 00 07-02 23:59 :00 No 300mg Q.[id number] 3D Take 1 capsule (300 mg total) by mouth 3 (three) times daily for 90 days. [facility] aspirin 81 MG EC tablet 04-03 00:00: 00 07-02 23:59 :00 No 81mg QD Take 1 tablet (81 mg total) by mouth daily for 90 days. [facility] divalproex (DEPAKOTE) 500 MG EC tablet 04-03 00:00: 00 07-02 23:59 :00 No 500mg Q.5D Take 1 tablet (500 mg total) by mouth 2 (two) times daily for 90 days. [facility] gabapentin (NEURONTIN) 300 MG capsule 04-03 00:00: 00 07-02 23:59 :00 No 300mg Q.[id number] 3D Take 1 capsule (300 mg total) by mouth 3 (three) times daily for 90 days. [facility] aspirin 81 MG EC tablet 04-03 00:00: 00 07-02 23:59 :00 No 81mg QD Take 1 tablet (81 mg total) by mouth daily for 90 days. [facility] divalproex (DEPAKOTE) 500 MG EC tablet 04-03 00:00: 00 07-02 23:59 :00 No 500mg Q.5D Take 1 tablet (500 mg total) by mouth 2 (two) times daily for 90 days. [facility] gabapentin (NEURONTIN) 300 MG capsule 04-03 00:00: 00 07-02 23:59 :00 No 300mg Q.[id number] 3D Take 1 capsule (300 mg total) by mouth 3 (three) times daily for 90 days. [facility] aspirin 81 MG EC tablet 04-03 00:00: 00 07-02 23:59 :00 No 81mg QD Take 1 tablet (81 mg total) by mouth daily for 90 days. [facility] divalproex (DEPAKOTE) 500 MG EC tablet 04-03 00:00: 00 07-02 23:59 :00 No 500mg Q.5D Take 1 tablet (500 mg total) by mouth 2 (two) times daily for 90 days. [facility] gabapentin (NEURONTIN) 300 MG capsule 04-03 00:00: 00 07-02 23:59 :00 No 300mg Q.[id number] 3D Take 1 capsule (300 mg total) by mouth 3 (three) times daily for 90 days. [facility] aspirin 81 MG EC tablet 04-03 00:00: 00 07-02 23:59 :00 No 81mg QD Take 1 tablet (81 mg total) by mouth daily for 90 days. [facility] divalproex (DEPAKOTE) 500 MG EC tablet 04-03 00:00: 00 07-02 23:59 :00 No 500mg Q.5D Take 1 tablet (500 mg total) by mouth 2 (two) times daily for 90 days. [facility] gabapentin (NEURONTIN) 300 MG capsule 04-03 00:00: 00 07-02 23:59 :00 No 300mg Q.[id number] 3D Take 1 capsule (300 mg total) by mouth 3 (three) times daily for 90 days. [facility] aspirin 81 MG EC tablet -15 00:00: 00 07-02 23:59 :00 No 81mg QD Take 1 tablet (81 mg total) by mouth daily for 90 days. [facility] divalproex (DEPAKOTE) 500 MG EC tablet -15 00:00: 00 07-02 23:59 :00 No 500mg Q.5D Take 1 tablet (500 mg total) by mouth 2 (two) times daily for 90 days. [facility] gabapentin (NEURONTIN) 300 MG capsule -15 00:00: 00 07-02 23:59 :00 No 300mg Q.[id number] 3D Take 1 capsule (300 mg total) by mouth 3 (three) times daily for 90 days. [facility] DULoxetine (CYMBALTA) 30 MG capsule -15 00:00: 00 06-16 00:00 :00 No 30mg QD Take 1 capsule (30 mg total) by mouth daily. [facility] DULoxetine (CYMBALTA) 30 MG capsule -15 00:00: 00 06-16 00:00 :00 No 30mg QD Take 1 capsule (30 mg total) by mouth daily. [facility] DULoxetine (CYMBALTA) 30 MG capsule -15 00:00: 00 06-16 00:00 :00 No 30mg QD Take 1 capsule (30 mg total) by mouth daily. [facility] lisinopriL (PRINIVIL,Z ESTRIL) 5 MG tablet -15 00:00: 00 05-28 00:00 :00 No 5mg QD Take 1 tablet (5 mg total) by mouth daily. [facility] lisinopriL (PRINIVIL,Z ESTRIL) 5 MG tablet 0 9-15 00:00: 00 05-28 00:00 :00 No 5mg QD Take 1 tablet (5 mg total) by mouth daily. [facility] lisinopriL (PRINIVIL,Z ESTRIL) 5 MG tablet 2022-0 9-15 00:00: 00 05-28 00:00 :00 No 5mg QD Take 1 tablet (5 mg total) by mouth daily. [facility] lisinopriL (PRINIVIL,Z ESTRIL) 5 MG tablet 0 -15 00:00: 00 05-28 00:00 :00 No 5mg QD Take 1 tablet (5 mg total) by mouth daily. [facility] lisinopriL (PRINIVIL,Z ESTRIL) 5 MG tablet -15 00:00: 00 05-28 00:00 :00 No 5mg QD Take 1 tablet (5 mg total) by mouth daily. [facility] lisinopriL (PRINIVIL,Z ESTRIL) 5 MG tablet 0 -15 00:00: 00 05-28 00:00 :00 No 5mg QD Take 1 tablet (5 mg total) by mouth daily. [facility] lisinopriL (PRINIVIL,Z ESTRIL) 5 MG tablet 2022-0 -15 00:00: 00 05-28 00:00 :00 No 5mg QD Take 1 tablet (5 mg total) by mouth daily. [facility] clonazePAM (KlonoPIN) 0.5 MG tablet 15 00:00: 00 05-03 23:59 :00 No .25mg Take 0.5 tablets (0.25 mg total) by mouth 2 (two) times daily as needed for Anxiety for up to 30 days. Max Daily Amount: 0.5 mg [facility] clonazePAM (KlonoPIN) 0.5 MG tablet -15 00:00: 00 05-03 23:59 :00 No .25mg Take 0.5 tablets (0.25 mg total) by mouth 2 (two) times daily as needed for Anxiety for up to 30 days. Max Daily Amount: 0.5 mg [facility] clonazePAM (KlonoPIN) 0.5 MG tablet 2022-0 9-15 00:00: 00 05-03 23:59 :00 No .25mg Take 0.5 tablets (0.25 mg total) by mouth 2 (two) times daily as needed for Anxiety for up to 30 days. Max Daily Amount: 0.5 mg [facility] clonazePAM (KlonoPIN) 0.5 MG tablet 04-03 00:00: 00 05-03 23:59 :00 No .25mg Take 0.5 tablets (0.25 mg total) by mouth 2 (two) times daily as needed for Anxiety for up to 30 days. Max Daily Amount: 0.5 mg [facility] clonazePAM (KlonoPIN) 0.5 MG tablet 04-03 00:00: 00 05-03 23:59 :00 No .25mg Take 0.5 tablets (0.25 mg total) by mouth 2 (two) times daily as needed for Anxiety for up to 30 days. Max Daily Amount: 0.5 mg [facility] clonazePAM (KlonoPIN) 0.5 MG tablet 04-03 00:00: 00 05-03 23:59 :00 No .25mg Take 0.5 tablets (0.25 mg total) by mouth 2 (two) times daily as needed for Anxiety for up to 30 days. Max Daily Amount: 0.5 mg [facility] clonazePAM (KlonoPIN) 0.5 MG tablet 04-03 00:00: 00 05-03 23:59 :00 No .25mg Take 0.5 tablets (0.25 mg total) by mouth 2 (two) times daily as needed for Anxiety for up to 30 days. Max Daily Amount: 0.5 mg [facility] clonazePAM (KlonoPIN) 0.5 MG tablet 04-03 00:00: 00 05-03 23:59 :00 No .25mg Take 0.5 tablets (0.25 mg total) by mouth 2 (two) times daily as needed for Anxiety for up to 30 days. Max Daily Amount: 0.5 mg [facility] clonazePAM (KlonoPIN) 0.5 MG tablet 04-03 00:00: 00 05-03 23:59 :00 No .25mg Take 0.5 tablets (0.25 mg total) by mouth 2 (two) times daily as needed for Anxiety for up to 30 days. Max Daily Amount: 0.5 mg [facility] clonazePAM (KlonoPIN) 0.5 MG tablet 04-03 00:00: 00 05-03 23:59 :00 No .25mg Take 0.5 tablets (0.25 mg total) by mouth 2 (two) times daily as needed for Anxiety for up to 30 days. Max Daily Amount: 0.5 mg [facility] clonazePAM (KlonoPIN) 0.5 MG tablet 04-03 00:00: 00 05-03 23:59 :00 No .25mg Take 0.5 tablets (0.25 mg total) by mouth 2 (two) times daily as needed for Anxiety for up to 30 days. Max Daily Amount: 0.5 mg [facility] clonazePAM (KlonoPIN) 0.5 MG tablet 04-03 00:00: 00 05-03 23:59 :00 No .25mg Take 0.5 tablets (0.25 mg total) by mouth 2 (two) times daily as needed for Anxiety for up to 30 days. Max Daily Amount: 0.5 mg [facility] clonazePAM (KlonoPIN) 0.5 MG tablet 04-03 00:00: 00 05-03 23:59 :00 No .25mg Take 0.5 tablets (0.25 mg total) by mouth 2 (two) times daily as needed for Anxiety for up to 30 days. Max Daily Amount: 0.5 mg [facility] clonazePAM (KlonoPIN) 0.5 MG tablet 0 04-03 00:00: 00 05-03 23:59 :00 No .25mg Take 0.5 tablets (0.25 mg total) by mouth 2 (two) times daily as needed for Anxiety for up to 30 days. Max Daily Amount: 0.5 mg [facility] clonazePAM (KlonoPIN) 0.5 MG tablet 04-03 00:00: 00 05-03 23:59 :00 No .25mg Take 0.5 tablets (0.25 mg total) by mouth 2 (two) times daily as needed for Anxiety for up to 30 days. Max Daily Amount: 0.5 mg [facility] clonazePAM (KlonoPIN) 0.5 MG tablet 04-03 00:00: 00 05-03 23:59 :00 No .25mg Take 0.5 tablets (0.25 mg total) by mouth 2 (two) times daily as needed for Anxiety for up to 30 days. Max Daily Amount: 0.5 mg [facility] HYDROcodone -acetaminop hen (NORCO 10-325) 10-325 mg per tablet 04-03 00:00: 00 04-13 23:59 :00 No 1{tbl} Take 1 tablet by mouth every 6 (six) hours as needed for up to 10 days. Max Daily Amount: 4 tablets [facility] methocarbam oL (ROBAXIN) 500 MG tablet 04-03 00:00: 00 04-13 23:59 :00 No 500mg Q.25D Take 1 tablet (500 mg total) by mouth 4 (four) times daily for 10 days. [facility] HYDROcodone -acetaminop hen (NORCO 10-325) 10-325 mg per tablet 04-03 00:00: 00 04-13 23:59 :00 No 1{tbl} Take 1 tablet by mouth every 6 (six) hours as needed for up to 10 days. Max Daily Amount: 4 tablets [facility] methocarbam oL (ROBAXIN) 500 MG tablet 04-03 00:00: 00 04-13 23:59 :00 No 500mg Q.25D Take 1 tablet (500 mg total) by mouth 4 (four) times daily for 10 days. [facility] HYDROcodone -acetaminop hen (NORCO 10-325) 10-325 mg per tablet 04-03 00:00: 00 04-13 23:59 :00 No 1{tbl} Take 1 tablet by mouth every 6 (six) hours as needed for up to 10 days. Max Daily Amount: 4 tablets [facility] methocarbam oL (ROBAXIN) 500 MG tablet 15 00:00: 00 04-13 23:59 :00 No 500mg Q.25D Take 1 tablet (500 mg total) by mouth 4 (four) times daily for 10 days. [facility] HYDROcodone -acetaminop hen (NORCO 10-325) 10-325 mg per tablet 04-03 00:00: 00 04-13 23:59 :00 No 1{tbl} Take 1 tablet by mouth every 6 (six) hours as needed for up to 10 days. Max Daily Amount: 4 tablets [facility] methocarbam oL (ROBAXIN) 500 MG tablet 04-03 00:00: 00 04-13 23:59 :00 No 500mg Q.25D Take 1 tablet (500 mg total) by mouth 4 (four) times daily for 10 days. [facility] HYDROcodone -acetaminop hen (NORCO 10-325) 10-325 mg per tablet 04-03 00:00: 00 04-13 23:59 :00 No 1{tbl} Take 1 tablet by mouth every 6 (six) hours as needed for up to 10 days. Max Daily Amount: 4 tablets [facility] methocarbam oL (ROBAXIN) 500 MG tablet 04-03 00:00: 00 04-13 23:59 :00 No 500mg Q.25D Take 1 tablet (500 mg total) by mouth 4 (four) times daily for 10 days. [facility] HYDROcodone -acetaminop hen (NORCO 10-325) 10-325 mg per tablet 04-03 00:00: 00 04-13 23:59 :00 No 1{tbl} Take 1 tablet by mouth every 6 (six) hours as needed for up to 10 days. Max Daily Amount: 4 tablets [facility] methocarbam oL (ROBAXIN) 500 MG tablet 15 00:00: 00 04-13 23:59 :00 No 500mg Q.25D Take 1 tablet (500 mg total) by mouth 4 (four) times daily for 10 days. [facility] HYDROcodone -acetaminop hen (NORCO 10-325) 10-325 mg per tablet 04-03 00:00: 00 04-13 23:59 :00 No 1{tbl} Take 1 tablet by mouth every 6 (six) hours as needed for up to 10 days. Max Daily Amount: 4 tablets [facility] methocarbam oL (ROBAXIN) 500 MG tablet 04-03 00:00: 00 04-13 23:59 :00 No 500mg Q.25D Take 1 tablet (500 mg total) by mouth 4 (four) times daily for 10 days. [facility] HYDROcodone -acetaminop hen (NORCO 10-325) 10-325 mg per tablet 04-03 00:00: 00 04-13 23:59 :00 No 1{tbl} Take 1 tablet by mouth every 6 (six) hours as needed for up to 10 days. Max Daily Amount: 4 tablets [facility] methocarbam oL (ROBAXIN) 500 MG tablet 04-03 00:00: 00 04-13 23:59 :00 No 500mg Q.25D Take 1 tablet (500 mg total) by mouth 4 (four) times daily for 10 days. [facility] HYDROcodone -acetaminop hen (NORCO 10-325) 10-325 mg per tablet 04-03 00:00: 00 04-13 23:59 :00 No 1{tbl} Take 1 tablet by mouth every 6 (six) hours as needed for up to 10 days. Max Daily Amount: 4 tablets [facility] methocarbam oL (ROBAXIN) 500 MG tablet 04-03 00:00: 00 04-13 23:59 :00 No 500mg Q.25D Take 1 tablet (500 mg total) by mouth 4 (four) times daily for 10 days. [facility] HYDROcodone -acetaminop hen (NORCO 10-325) 10-325 mg per tablet 04-03 00:00: 00 04-13 23:59 :00 No 1{tbl} Take 1 tablet by mouth every 6 (six) hours as needed for up to 10 days. Max Daily Amount: 4 tablets [facility] methocarbam oL (ROBAXIN) 500 MG tablet 04-03 00:00: 00 04-13 23:59 :00 No 500mg Q.25D Take 1 tablet (500 mg total) by mouth 4 (four) times daily for 10 days. [facility] HYDROcodone -acetaminop hen (NORCO 10-325) 10-325 mg per tablet 04-03 00:00: 00 04-13 23:59 :00 No 1{tbl} Take 1 tablet by mouth every 6 (six) hours as needed for up to 10 days. Max Daily Amount: 4 tablets [facility] methocarbam oL (ROBAXIN) 500 MG tablet 04-03 00:00: 00 04-13 23:59 :00 No 500mg Q.25D Take 1 tablet (500 mg total) by mouth 4 (four) times daily for 10 days. [facility] HYDROcodone -acetaminop hen (NORCO 10-325) 10-325 mg per tablet 04-03 00:00: 00 04-13 23:59 :00 No 1{tbl} Take 1 tablet by mouth every 6 (six) hours as needed for up to 10 days. Max Daily Amount: 4 tablets [facility] methocarbam oL (ROBAXIN) 500 MG tablet 04-03 00:00: 00 04-13 23:59 :00 No 500mg Q.25D Take 1 tablet (500 mg total) by mouth 4 (four) times daily for 10 days. [facility] HYDROcodone -acetaminop hen (NORCO 10-325) 10-325 mg per tablet 04-03 00:00: 00 04-13 23:59 :00 No 1{tbl} Take 1 tablet by mouth every 6 (six) hours as needed for up to 10 days. Max Daily Amount: 4 tablets [facility] methocarbam oL (ROBAXIN) 500 MG tablet 04-03 00:00: 00 04-13 23:59 :00 No 500mg Q.25D Take 1 tablet (500 mg total) by mouth 4 (four) times daily for 10 days. [facility] HYDROcodone -acetaminop hen (NORCO 10-325) 10-325 mg per tablet 04-03 00:00: 00 04-13 23:59 :00 No 1{tbl} Take 1 tablet by mouth every 6 (six) hours as needed for up to 10 days. Max Daily Amount: 4 tablets [facility] methocarbam oL (ROBAXIN) 500 MG tablet 04-03 00:00: 00 04-13 23:59 :00 No 500mg Q.25D Take 1 tablet (500 mg total) by mouth 4 (four) times daily for 10 days. [facility] HYDROcodone -acetaminop hen (NORCO 10-325) 10-325 mg per tablet 04-03 00:00: 00 04-13 23:59 :00 No 1{tbl} Take 1 tablet by mouth every 6 (six) hours as needed for up to 10 days. Max Daily Amount: 4 tablets [facility] methocarbam oL (ROBAXIN) 500 MG tablet 04-03 00:00: 00 04-13 23:59 :00 No 500mg Q.25D Take 1 tablet (500 mg total) by mouth 4 (four) times daily for 10 days. [facility] HYDROcodone -acetaminop hen (NORCO 10-325) 10-325 mg per tablet 04-03 00:00: 00 04-13 23:59 :00 No 1{tbl} Take 1 tablet by mouth every 6 (six) hours as needed for up to 10 days. Max Daily Amount: 4 tablets [facility] methocarbam oL (ROBAXIN) 500 MG tablet 04-03 00:00: 00 04-13 23:59 :00 No 500mg Q.25D Take 1 tablet (500 mg total) by mouth 4 (four) times daily for 10 days. [facility] aspirin 81 MG EC tablet 04-03 00:00: 00 04-03 00:00 :00 No 81mg QD Take 1 tablet (81 mg total) by mouth daily for 90 days. [facility] DULoxetine (CYMBALTA) 30 MG capsule 04-03 00:00: 00 04-03 00:00 :00 No 30mg QD Take 1 capsule (30 mg total) by mouth daily. [facility] furosemide (LASIX) 20 MG tablet 04-03 00:00: 00 04-03 00:00 :00 No 20mg QD Take 1 tablet (20 mg total) by mouth daily. [facility] lisinopriL (PRINIVIL,Z ESTRIL) 5 MG tablet 04-03 00:00: 00 04-03 00:00 :00 No 5mg QD Take 1 tablet (5 mg total) by mouth daily. [facility] lisinopriL (PRINIVIL,Z ESTRIL) 5 MG tablet 04-03 00:00: 00 04-03 00:00 :00 No 5mg QD Take 1 tablet (5 mg total) by mouth daily. [facility] aspirin 81 MG EC tablet 04-03 00:00: 00 04-03 00:00 :00 No 81mg QD Take 1 tablet (81 mg total) by mouth daily for 90 days. [facility] DULoxetine (CYMBALTA) 30 MG capsule 04-03 00:00: 00 04-03 00:00 :00 No 30mg QD Take 1 capsule (30 mg total) by mouth daily. [facility] furosemide (LASIX) 20 MG tablet 04-03 00:00: 00 04-03 00:00 :00 No 20mg QD Take 1 tablet (20 mg total) by mouth daily. [facility] lisinopriL (PRINIVIL,Z ESTRIL) 5 MG tablet 04-03 00:00: 00 04-03 00:00 :00 No 5mg QD Take 1 tablet (5 mg total) by mouth daily. [facility] aspirin 81 MG EC tablet 04-03 00:00: 00 04-03 00:00 :00 No 81mg QD Take 1 tablet (81 mg total) by mouth daily for 90 days. [facility] DULoxetine (CYMBALTA) 30 MG capsule 04-03 00:00: 00 04-03 00:00 :00 No 30mg QD Take 1 capsule (30 mg total) by mouth daily. [facility] furosemide (LASIX) 20 MG tablet 04-03 00:00: 00 04-03 00:00 :00 No 20mg QD Take 1 tablet (20 mg total) by mouth daily. [facility] lisinopriL (PRINIVIL,Z ESTRIL) 5 MG tablet 04-03 00:00: 00 04-03 00:00 :00 No 5mg QD Take 1 tablet (5 mg total) by mouth daily. [facility] aspirin 81 MG EC tablet 04-03 00:00: 00 04-03 00:00 :00 No 81mg QD Take 1 tablet (81 mg total) by mouth daily for 90 days. [facility] DULoxetine (CYMBALTA) 30 MG capsule 04-03 00:00: 00 04-03 00:00 :00 No 30mg QD Take 1 capsule (30 mg total) by mouth daily. [facility] furosemide (LASIX) 20 MG tablet 04-03 00:00: 00 04-03 00:00 :00 No 20mg QD Take 1 tablet (20 mg total) by mouth daily. [facility] lisinopriL (PRINIVIL,Z ESTRIL) 5 MG tablet 04-03 00:00: 00 04-03 00:00 :00 No 5mg QD Take 1 tablet (5 mg total) by mouth daily. [facility] aspirin 81 MG EC tablet 04-03 00:00: 00 04-03 00:00 :00 No 81mg QD Take 1 tablet (81 mg total) by mouth daily for 90 days. [facility] DULoxetine (CYMBALTA) 30 MG capsule 04-03 00:00: 00 04-03 00:00 :00 No 30mg QD Take 1 capsule (30 mg total) by mouth daily. [facility] furosemide (LASIX) 20 MG tablet 04-03 00:00: 00 04-03 00:00 :00 No 20mg QD Take 1 tablet (20 mg total) by mouth daily. [facility] lisinopriL (PRINIVIL,Z ESTRIL) 5 MG tablet 04-03 00:00: 00 04-03 00:00 :00 No 5mg QD Take 1 tablet (5 mg total) by mouth daily. [facility] aspirin 81 MG EC tablet 04-03 00:00: 00 04-03 00:00 :00 No 81mg QD Take 1 tablet (81 mg total) by mouth daily for 90 days. [facility] DULoxetine (CYMBALTA) 30 MG capsule 04-03 00:00: 00 04-03 00:00 :00 No 30mg QD Take 1 capsule (30 mg total) by mouth daily. [facility] furosemide (LASIX) 20 MG tablet 04-03 00:00: 00 04-03 00:00 :00 No 20mg QD Take 1 tablet (20 mg total) by mouth daily. [facility] lisinopriL (PRINIVIL,Z ESTRIL) 5 MG tablet 04-03 00:00: 00 04-03 00:00 :00 No 5mg QD Take 1 tablet (5 mg total) by mouth daily. [facility] aspirin 81 MG EC tablet 04-03 00:00: 00 04-03 00:00 :00 No 81mg QD Take 1 tablet (81 mg total) by mouth daily for 90 days. [facility] DULoxetine (CYMBALTA) 30 MG capsule 04-03 00:00: 00 04-03 00:00 :00 No 30mg QD Take 1 capsule (30 mg total) by mouth daily. [facility] furosemide (LASIX) 20 MG tablet 04-03 00:00: 00 04-03 00:00 :00 No 20mg QD Take 1 tablet (20 mg total) by mouth daily. [facility] lisinopriL (PRINIVIL,Z ESTRIL) 5 MG tablet 04-03 00:00: 00 04-03 00:00 :00 No 5mg QD Take 1 tablet (5 mg total) by mouth daily. [facility] aspirin 81 MG EC tablet 04-03 00:00: 00 04-03 00:00 :00 No 81mg QD Take 1 tablet (81 mg total) by mouth daily for 90 days. [facility] DULoxetine (CYMBALTA) 30 MG capsule 04-03 00:00: 00 04-03 00:00 :00 No 30mg QD Take 1 capsule (30 mg total) by mouth daily. [facility] furosemide (LASIX) 20 MG tablet 04-03 00:00: 00 04-03 00:00 :00 No 20mg QD Take 1 tablet (20 mg total) by mouth daily. [facility] lisinopriL (PRINIVIL,Z ESTRIL) 5 MG tablet 04-03 00:00: 00 04-03 00:00 :00 No 5mg QD Take 1 tablet (5 mg total) by mouth daily. [facility] aspirin 81 MG EC tablet 04-03 00:00: 00 04-03 00:00 :00 No 81mg QD Take 1 tablet (81 mg total) by mouth daily for 90 days. [facility] DULoxetine (CYMBALTA) 30 MG capsule 04-03 00:00: 00 04-03 00:00 :00 No 30mg QD Take 1 capsule (30 mg total) by mouth daily. [facility] furosemide (LASIX) 20 MG tablet 04-03 00:00: 00 04-03 00:00 :00 No 20mg QD Take 1 tablet (20 mg total) by mouth daily. [facility] lisinopriL (PRINIVIL,Z ESTRIL) 5 MG tablet 04-03 00:00: 00 04-03 00:00 :00 No 5mg QD Take 1 tablet (5 mg total) by mouth daily. [facility] aspirin 81 MG EC tablet 04-03 00:00: 00 04-03 00:00 :00 No 81mg QD Take 1 tablet (81 mg total) by mouth daily for 90 days. [facility] DULoxetine (CYMBALTA) 30 MG capsule 04-03 00:00: 00 04-03 00:00 :00 No 30mg QD Take 1 capsule (30 mg total) by mouth daily. [facility] furosemide (LASIX) 20 MG tablet 04-03 00:00: 00 04-03 00:00 :00 No 20mg QD Take 1 tablet (20 mg total) by mouth daily. [facility] lisinopriL (PRINIVIL,Z ESTRIL) 5 MG tablet 04-03 00:00: 00 04-03 00:00 :00 No 5mg QD Take 1 tablet (5 mg total) by mouth daily. [facility] aspirin 81 MG EC tablet 04-03 00:00: 00 04-03 00:00 :00 No 81mg QD Take 1 tablet (81 mg total) by mouth daily for 90 days. [facility] DULoxetine (CYMBALTA) 30 MG capsule 04-03 00:00: 00 04-03 00:00 :00 No 30mg QD Take 1 capsule (30 mg total) by mouth daily. [facility] furosemide (LASIX) 20 MG tablet 04-03 00:00: 00 04-03 00:00 :00 No 20mg QD Take 1 tablet (20 mg total) by mouth daily. [facility] lisinopriL (PRINIVIL,Z ESTRIL) 5 MG tablet 04-03 00:00: 00 04-03 00:00 :00 No 5mg QD Take 1 tablet (5 mg total) by mouth daily. [facility] aspirin 81 MG EC tablet 04-03 00:00: 00 04-03 00:00 :00 No 81mg QD Take 1 tablet (81 mg total) by mouth daily for 90 days. [facility] DULoxetine (CYMBALTA) 30 MG capsule 04-03 00:00: 00 04-03 00:00 :00 No 30mg QD Take 1 capsule (30 mg total) by mouth daily. [facility] furosemide (LASIX) 20 MG tablet 04-03 00:00: 00 04-03 00:00 :00 No 20mg QD Take 1 tablet (20 mg total) by mouth daily. [facility] lisinopriL (PRINIVIL,Z ESTRIL) 5 MG tablet 04-03 00:00: 00 04-03 00:00 :00 No 5mg QD Take 1 tablet (5 mg total) by mouth daily. [facility] aspirin 81 MG EC tablet 04-03 00:00: 00 04-03 00:00 :00 No 81mg QD Take 1 tablet (81 mg total) by mouth daily for 90 days. [facility] DULoxetine (CYMBALTA) 30 MG capsule 04-03 00:00: 00 04-03 00:00 :00 No 30mg QD Take 1 capsule (30 mg total) by mouth daily. [facility] furosemide (LASIX) 20 MG tablet 04-03 00:00: 00 04-03 00:00 :00 No 20mg QD Take 1 tablet (20 mg total) by mouth daily. [facility] lisinopriL (PRINIVIL,Z ESTRIL) 5 MG tablet 04-03 00:00: 00 04-03 00:00 :00 No 5mg QD Take 1 tablet (5 mg total) by mouth daily. [facility] aspirin 81 MG EC tablet 04-03 00:00: 00 04-03 00:00 :00 No 81mg QD Take 1 tablet (81 mg total) by mouth daily for 90 days. [facility] DULoxetine (CYMBALTA) 30 MG capsule 04-03 00:00: 00 04-03 00:00 :00 No 30mg QD Take 1 capsule (30 mg total) by mouth daily. [facility] furosemide (LASIX) 20 MG tablet 04-03 00:00: 00 04-03 00:00 :00 No 20mg QD Take 1 tablet (20 mg total) by mouth daily. [facility] lisinopriL (PRINIVIL,Z ESTRIL) 5 MG tablet 04-03 00:00: 00 04-03 00:00 :00 No 5mg QD Take 1 tablet (5 mg total) by mouth daily. [facility] aspirin 81 MG EC tablet 04-03 00:00: 00 04-03 00:00 :00 No 81mg QD Take 1 tablet (81 mg total) by mouth daily for 90 days. [facility] DULoxetine (CYMBALTA) 30 MG capsule 04-03 00:00: 00 04-03 00:00 :00 No 30mg QD Take 1 capsule (30 mg total) by mouth daily. [facility] furosemide (LASIX) 20 MG tablet 04-03 00:00: 00 04-03 00:00 :00 No 20mg QD Take 1 tablet (20 mg total) by mouth daily. [facility] lisinopriL (PRINIVIL,Z ESTRIL) 5 MG tablet 04-03 00:00: 00 04-03 00:00 :00 No 5mg QD Take 1 tablet (5 mg total) by mouth daily. [facility] aspirin 81 MG EC tablet 04-03 00:00: 00 04-03 00:00 :00 No 81mg QD Take 1 tablet (81 mg total) by mouth daily for 90 days. [facility] DULoxetine (CYMBALTA) 30 MG capsule 04-03 00:00: 00 04-03 00:00 :00 No 30mg QD Take 1 capsule (30 mg total) by mouth daily. [facility] furosemide (LASIX) 20 MG tablet 04-03 00:00: 00 04-03 00:00 :00 No 20mg QD Take 1 tablet (20 mg total) by mouth daily. [facility] gabapentin (NEURONTIN) 300 MG capsule 04-02 00:00: 00 04-03 00:00 :00 No 300mg Q.[id number] 3D Take 1 capsule (300 mg total) by mouth 3 (three) times daily for 90 days. [facility] divalproex (DEPAKOTE) 500 MG EC tablet 04-02 00:00: 00 04-03 00:00 :00 No 500mg Q.5D Take 1 tablet (500 mg total) by mouth 2 (two) times daily for 90 days. [facility] clonazePAM (KlonoPIN) 0.5 MG tablet 04-02 00:00: 00 04-03 00:00 :00 No .25mg Take 0.5 tablets (0.25 mg total) by mouth 2 (two) times daily as needed for Anxiety for up to 30 days. Max Daily Amount: 0.5 mg [facility] gabapentin (NEURONTIN) 300 MG capsule 04-02 00:00: 00 04-03 00:00 :00 No 300mg Q.[id number] 3D Take 1 capsule (300 mg total) by mouth 3 (three) times daily for 90 days. [facility] HYDROcodone -acetaminop hen (NORCO 10-325) 10-325 mg per tablet 04-02 00:00: 00 04-03 00:00 :00 No 1{tbl} Take 1 tablet by mouth every 6 (six) hours as needed for up to 10 days. Max Daily Amount: 4 tablets [facility] HYDROcodone -acetaminop hen (NORCO 10-325) 10-325 mg per tablet 04-02 00:00: 00 04-03 00:00 :00 No 1{tbl} Take 1 tablet by mouth every 6 (six) hours as needed for up to 10 days. Max Daily Amount: 4 tablets [facility] methocarbam oL (ROBAXIN) 500 MG tablet 04-02 00:00: 00 04-03 00:00 :00 No 500mg Q.25D Take 1 tablet (500 mg total) by mouth 4 (four) times daily for 10 days. [facility] methocarbam oL (ROBAXIN) 500 MG tablet 04-02 00:00: 00 04-03 00:00 :00 No 500mg Q.25D Take 1 tablet (500 mg total) by mouth 4 (four) times daily for 10 days. [facility] divalproex (DEPAKOTE) 500 MG EC tablet 04-02 00:00: 00 04-03 00:00 :00 No 500mg Q.5D Take 1 tablet (500 mg total) by mouth 2 (two) times daily for 90 days. [facility] clonazePAM (KlonoPIN) 0.5 MG tablet 04-02 00:00: 00 04-03 00:00 :00 No .25mg Take 0.5 tablets (0.25 mg total) by mouth 2 (two) times daily as needed for Anxiety for up to 30 days. Max Daily Amount: 0.5 mg [facility] gabapentin (NEURONTIN) 300 MG capsule 04-02 00:00: 00 04-03 00:00 :00 No 300mg Q.[id number] 3D Take 1 capsule (300 mg total) by mouth 3 (three) times daily for 90 days. [facility] HYDROcodone -acetaminop hen (NORCO 10-325) 10-325 mg per tablet 04-02 00:00: 00 04-03 00:00 :00 No 1{tbl} Take 1 tablet by mouth every 6 (six) hours as needed for up to 10 days. Max Daily Amount: 4 tablets [facility] methocarbam oL (ROBAXIN) 500 MG tablet 04-02 00:00: 00 04-03 00:00 :00 No 500mg Q.25D Take 1 tablet (500 mg total) by mouth 4 (four) times daily for 10 days. [facility] divalproex (DEPAKOTE) 500 MG EC tablet 04-02 00:00: 00 04-03 00:00 :00 No 500mg Q.5D Take 1 tablet (500 mg total) by mouth 2 (two) times daily for 90 days. [facility] clonazePAM (KlonoPIN) 0.5 MG tablet 04-02 00:00: 00 04-03 00:00 :00 No .25mg Take 0.5 tablets (0.25 mg total) by mouth 2 (two) times daily as needed for Anxiety for up to 30 days. Max Daily Amount: 0.5 mg [facility] gabapentin (NEURONTIN) 300 MG capsule 04-02 00:00: 00 04-03 00:00 :00 No 300mg Q.[id number] 3D Take 1 capsule (300 mg total) by mouth 3 (three) times daily for 90 days. [facility] HYDROcodone -acetaminop hen (NORCO 10-325) 10-325 mg per tablet 04-02 00:00: 00 04-03 00:00 :00 No 1{tbl} Take 1 tablet by mouth every 6 (six) hours as needed for up to 10 days. Max Daily Amount: 4 tablets [facility] methocarbam oL (ROBAXIN) 500 MG tablet 04-02 00:00: 00 04-03 00:00 :00 No 500mg Q.25D Take 1 tablet (500 mg total) by mouth 4 (four) times daily for 10 days. [facility] divalproex (DEPAKOTE) 500 MG EC tablet 04-02 00:00: 00 04-03 00:00 :00 No 500mg Q.5D Take 1 tablet (500 mg total) by mouth 2 (two) times daily for 90 days. [facility] clonazePAM (KlonoPIN) 0.5 MG tablet 04-02 00:00: 00 04-03 00:00 :00 No .25mg Take 0.5 tablets (0.25 mg total) by mouth 2 (two) times daily as needed for Anxiety for up to 30 days. Max Daily Amount: 0.5 mg [facility] gabapentin (NEURONTIN) 300 MG capsule 04-02 00:00: 00 04-03 00:00 :00 No 300mg Q.[id number] 3D Take 1 capsule (300 mg total) by mouth 3 (three) times daily for 90 days. [facility] HYDROcodone -acetaminop hen (NORCO 10-325) 10-325 mg per tablet 04-02 00:00: 00 04-03 00:00 :00 No 1{tbl} Take 1 tablet by mouth every 6 (six) hours as needed for up to 10 days. Max Daily Amount: 4 tablets [facility] methocarbam oL (ROBAXIN) 500 MG tablet 04-02 00:00: 00 04-03 00:00 :00 No 500mg Q.25D Take 1 tablet (500 mg total) by mouth 4 (four) times daily for 10 days. [facility] divalproex (DEPAKOTE) 500 MG EC tablet 04-02 00:00: 00 04-03 00:00 :00 No 500mg Q.5D Take 1 tablet (500 mg total) by mouth 2 (two) times daily for 90 days. [facility] clonazePAM (KlonoPIN) 0.5 MG tablet 04-02 00:00: 00 04-03 00:00 :00 No .25mg Take 0.5 tablets (0.25 mg total) by mouth 2 (two) times daily as needed for Anxiety for up to 30 days. Max Daily Amount: 0.5 mg [facility] gabapentin (NEURONTIN) 300 MG capsule 04-02 00:00: 00 04-03 00:00 :00 No 300mg Q.[id number] 3D Take 1 capsule (300 mg total) by mouth 3 (three) times daily for 90 days. [facility] HYDROcodone -acetaminop hen (NORCO 10-325) 10-325 mg per tablet 04-02 00:00: 00 04-03 00:00 :00 No 1{tbl} Take 1 tablet by mouth every 6 (six) hours as needed for up to 10 days. Max Daily Amount: 4 tablets [facility] methocarbam oL (ROBAXIN) 500 MG tablet 04-02 00:00: 00 04-03 00:00 :00 No 500mg Q.25D Take 1 tablet (500 mg total) by mouth 4 (four) times daily for 10 days. [facility] divalproex (DEPAKOTE) 500 MG EC tablet 04-02 00:00: 00 04-03 00:00 :00 No 500mg Q.5D Take 1 tablet (500 mg total) by mouth 2 (two) times daily for 90 days. [facility] clonazePAM (KlonoPIN) 0.5 MG tablet 04-02 00:00: 00 04-03 00:00 :00 No .25mg Take 0.5 tablets (0.25 mg total) by mouth 2 (two) times daily as needed for Anxiety for up to 30 days. Max Daily Amount: 0.5 mg [facility] gabapentin (NEURONTIN) 300 MG capsule 04-02 00:00: 00 04-03 00:00 :00 No 300mg Q.[id number] 3D Take 1 capsule (300 mg total) by mouth 3 (three) times daily for 90 days. [facility] HYDROcodone -acetaminop hen (NORCO 10-325) 10-325 mg per tablet 04-02 00:00: 00 04-03 00:00 :00 No 1{tbl} Take 1 tablet by mouth every 6 (six) hours as needed for up to 10 days. Max Daily Amount: 4 tablets [facility] methocarbam oL (ROBAXIN) 500 MG tablet 04-02 00:00: 00 04-03 00:00 :00 No 500mg Q.25D Take 1 tablet (500 mg total) by mouth 4 (four) times daily for 10 days. [facility] divalproex (DEPAKOTE) 500 MG EC tablet 04-02 00:00: 00 04-03 00:00 :00 No 500mg Q.5D Take 1 tablet (500 mg total) by mouth 2 (two) times daily for 90 days. [facility] clonazePAM (KlonoPIN) 0.5 MG tablet 04-02 00:00: 00 04-03 00:00 :00 No .25mg Take 0.5 tablets (0.25 mg total) by mouth 2 (two) times daily as needed for Anxiety for up to 30 days. Max Daily Amount: 0.5 mg [facility] gabapentin (NEURONTIN) 300 MG capsule 04-02 00:00: 00 04-03 00:00 :00 No 300mg Q.[id number] 3D Take 1 capsule (300 mg total) by mouth 3 (three) times daily for 90 days. [facility] HYDROcodone -acetaminop hen (NORCO 10-325) 10-325 mg per tablet 04-02 00:00: 00 04-03 00:00 :00 No 1{tbl} Take 1 tablet by mouth every 6 (six) hours as needed for up to 10 days. Max Daily Amount: 4 tablets [facility] methocarbam oL (ROBAXIN) 500 MG tablet 04-02 00:00: 00 04-03 00:00 :00 No 500mg Q.25D Take 1 tablet (500 mg total) by mouth 4 (four) times daily for 10 days. [facility] divalproex (DEPAKOTE) 500 MG EC tablet 04-02 00:00: 00 04-03 00:00 :00 No 500mg Q.5D Take 1 tablet (500 mg total) by mouth 2 (two) times daily for 90 days. [facility] clonazePAM (KlonoPIN) 0.5 MG tablet 04-02 00:00: 00 04-03 00:00 :00 No .25mg Take 0.5 tablets (0.25 mg total) by mouth 2 (two) times daily as needed for Anxiety for up to 30 days. Max Daily Amount: 0.5 mg [facility] gabapentin (NEURONTIN) 300 MG capsule 04-02 00:00: 00 04-03 00:00 :00 No 300mg Q.[id number] 3D Take 1 capsule (300 mg total) by mouth 3 (three) times daily for 90 days. [facility] HYDROcodone -acetaminop hen (NORCO 10-325) 10-325 mg per tablet 04-02 00:00: 00 04-03 00:00 :00 No 1{tbl} Take 1 tablet by mouth every 6 (six) hours as needed for up to 10 days. Max Daily Amount: 4 tablets [facility] methocarbam oL (ROBAXIN) 500 MG tablet 04-02 00:00: 00 04-03 00:00 :00 No 500mg Q.25D Take 1 tablet (500 mg total) by mouth 4 (four) times daily for 10 days. [facility] divalproex (DEPAKOTE) 500 MG EC tablet 04-02 00:00: 00 04-03 00:00 :00 No 500mg Q.5D Take 1 tablet (500 mg total) by mouth 2 (two) times daily for 90 days. [facility] clonazePAM (KlonoPIN) 0.5 MG tablet 04-02 00:00: 00 04-03 00:00 :00 No .25mg Take 0.5 tablets (0.25 mg total) by mouth 2 (two) times daily as needed for Anxiety for up to 30 days. Max Daily Amount: 0.5 mg [facility] gabapentin (NEURONTIN) 300 MG capsule 04-02 00:00: 00 04-03 00:00 :00 No 300mg Q.[id number] 3D Take 1 capsule (300 mg total) by mouth 3 (three) times daily for 90 days. [facility] HYDROcodone -acetaminop hen (NORCO 10-325) 10-325 mg per tablet 04-02 00:00: 00 04-03 00:00 :00 No 1{tbl} Take 1 tablet by mouth every 6 (six) hours as needed for up to 10 days. Max Daily Amount: 4 tablets [facility] methocarbam oL (ROBAXIN) 500 MG tablet 04-02 00:00: 00 04-03 00:00 :00 No 500mg Q.25D Take 1 tablet (500 mg total) by mouth 4 (four) times daily for 10 days. [facility] divalproex (DEPAKOTE) 500 MG EC tablet 04-02 00:00: 00 04-03 00:00 :00 No 500mg Q.5D Take 1 tablet (500 mg total) by mouth 2 (two) times daily for 90 days. [facility] clonazePAM (KlonoPIN) 0.5 MG tablet 04-02 00:00: 00 04-03 00:00 :00 No .25mg Take 0.5 tablets (0.25 mg total) by mouth 2 (two) times daily as needed for Anxiety for up to 30 days. Max Daily Amount: 0.5 mg [facility] gabapentin (NEURONTIN) 300 MG capsule 04-02 00:00: 00 04-03 00:00 :00 No 300mg Q.[id number] 3D Take 1 capsule (300 mg total) by mouth 3 (three) times daily for 90 days. [facility] HYDROcodone -acetaminop hen (NORCO 10-325) 10-325 mg per tablet 04-02 00:00: 00 04-03 00:00 :00 No 1{tbl} Take 1 tablet by mouth every 6 (six) hours as needed for up to 10 days. Max Daily Amount: 4 tablets [facility] methocarbam oL (ROBAXIN) 500 MG tablet 04-02 00:00: 00 04-03 00:00 :00 No 500mg Q.25D Take 1 tablet (500 mg total) by mouth 4 (four) times daily for 10 days. [facility] divalproex (DEPAKOTE) 500 MG EC tablet 04-02 00:00: 00 04-03 00:00 :00 No 500mg Q.5D Take 1 tablet (500 mg total) by mouth 2 (two) times daily for 90 days. [facility] clonazePAM (KlonoPIN) 0.5 MG tablet 04-02 00:00: 00 04-03 00:00 :00 No .25mg Take 0.5 tablets (0.25 mg total) by mouth 2 (two) times daily as needed for Anxiety for up to 30 days. Max Daily Amount: 0.5 mg [facility] gabapentin (NEURONTIN) 300 MG capsule 04-02 00:00: 00 04-03 00:00 :00 No 300mg Q.[id number] 3D Take 1 capsule (300 mg total) by mouth 3 (three) times daily for 90 days. [facility] HYDROcodone -acetaminop hen (NORCO 10-325) 10-325 mg per tablet 04-02 00:00: 00 04-03 00:00 :00 No 1{tbl} Take 1 tablet by mouth every 6 (six) hours as needed for up to 10 days. Max Daily Amount: 4 tablets [facility] methocarbam oL (ROBAXIN) 500 MG tablet 04-02 00:00: 00 04-03 00:00 :00 No 500mg Q.25D Take 1 tablet (500 mg total) by mouth 4 (four) times daily for 10 days. [facility] divalproex (DEPAKOTE) 500 MG EC tablet 04-02 00:00: 00 04-03 00:00 :00 No 500mg Q.5D Take 1 tablet (500 mg total) by mouth 2 (two) times daily for 90 days. [facility] clonazePAM (KlonoPIN) 0.5 MG tablet 04-02 00:00: 00 04-03 00:00 :00 No .25mg Take 0.5 tablets (0.25 mg total) by mouth 2 (two) times daily as needed for Anxiety for up to 30 days. Max Daily Amount: 0.5 mg [facility] gabapentin (NEURONTIN) 300 MG capsule 04-02 00:00: 00 04-03 00:00 :00 No 300mg Q.[id number] 3D Take 1 capsule (300 mg total) by mouth 3 (three) times daily for 90 days. [facility] HYDROcodone -acetaminop hen (NORCO 10-325) 10-325 mg per tablet 04-02 00:00: 00 04-03 00:00 :00 No 1{tbl} Take 1 tablet by mouth every 6 (six) hours as needed for up to 10 days. Max Daily Amount: 4 tablets [facility] methocarbam oL (ROBAXIN) 500 MG tablet 04-02 00:00: 00 04-03 00:00 :00 No 500mg Q.25D Take 1 tablet (500 mg total) by mouth 4 (four) times daily for 10 days. [facility] divalproex (DEPAKOTE) 500 MG EC tablet 04-02 00:00: 00 04-03 00:00 :00 No 500mg Q.5D Take 1 tablet (500 mg total) by mouth 2 (two) times daily for 90 days. [facility] clonazePAM (KlonoPIN) 0.5 MG tablet 04-02 00:00: 00 04-03 00:00 :00 No .25mg Take 0.5 tablets (0.25 mg total) by mouth 2 (two) times daily as needed for Anxiety for up to 30 days. Max Daily Amount: 0.5 mg [facility] gabapentin (NEURONTIN) 300 MG capsule 04-02 00:00: 00 04-03 00:00 :00 No 300mg Q.[id number] 3D Take 1 capsule (300 mg total) by mouth 3 (three) times daily for 90 days. [facility] HYDROcodone -acetaminop hen (NORCO 10-325) 10-325 mg per tablet 04-02 00:00: 00 04-03 00:00 :00 No 1{tbl} Take 1 tablet by mouth every 6 (six) hours as needed for up to 10 days. Max Daily Amount: 4 tablets [facility] methocarbam oL (ROBAXIN) 500 MG tablet 04-02 00:00: 00 04-03 00:00 :00 No 500mg Q.25D Take 1 tablet (500 mg total) by mouth 4 (four) times daily for 10 days. [facility] divalproex (DEPAKOTE) 500 MG EC tablet 04-02 00:00: 00 04-03 00:00 :00 No 500mg Q.5D Take 1 tablet (500 mg total) by mouth 2 (two) times daily for 90 days. [facility] clonazePAM (KlonoPIN) 0.5 MG tablet 04-02 00:00: 00 04-03 00:00 :00 No .25mg Take 0.5 tablets (0.25 mg total) by mouth 2 (two) times daily as needed for Anxiety for up to 30 days. Max Daily Amount: 0.5 mg [facility] gabapentin (NEURONTIN) 300 MG capsule 04-02 00:00: 00 04-03 00:00 :00 No 300mg Q.[id number] 3D Take 1 capsule (300 mg total) by mouth 3 (three) times daily for 90 days. [facility] HYDROcodone -acetaminop hen (NORCO 10-325) 10-325 mg per tablet 04-02 00:00: 00 04-03 00:00 :00 No 1{tbl} Take 1 tablet by mouth every 6 (six) hours as needed for up to 10 days. Max Daily Amount: 4 tablets [facility] methocarbam oL (ROBAXIN) 500 MG tablet 04-02 00:00: 00 04-03 00:00 :00 No 500mg Q.25D Take 1 tablet (500 mg total) by mouth 4 (four) times daily for 10 days. [facility] divalproex (DEPAKOTE) 500 MG EC tablet 04-02 00:00: 00 04-03 00:00 :00 No 500mg Q.5D Take 1 tablet (500 mg total) by mouth 2 (two) times daily for 90 days. [facility] clonazePAM (KlonoPIN) 0.5 MG tablet 04-02 00:00: 00 04-03 00:00 :00 No .25mg Take 0.5 tablets (0.25 mg total) by mouth 2 (two) times daily as needed for Anxiety for up to 30 days. Max Daily Amount: 0.5 mg [facility] gabapentin (NEURONTIN) 300 MG capsule 04-02 00:00: 00 04-03 00:00 :00 No 300mg Q.[id number] 3D Take 1 capsule (300 mg total) by mouth 3 (three) times daily for 90 days. [facility] HYDROcodone -acetaminop hen (NORCO 10-325) 10-325 mg per tablet 04-02 00:00: 00 04-03 00:00 :00 No 1{tbl} Take 1 tablet by mouth every 6 (six) hours as needed for up to 10 days. Max Daily Amount: 4 tablets [facility] methocarbam oL (ROBAXIN) 500 MG tablet 04-02 00:00: 00 04-03 00:00 :00 No 500mg Q.25D Take 1 tablet (500 mg total) by mouth 4 (four) times daily for 10 days. [facility] divalproex (DEPAKOTE) 500 MG EC tablet 04-02 00:00: 00 04-03 00:00 :00 No 500mg Q.5D Take 1 tablet (500 mg total) by mouth 2 (two) times daily for 90 days. [facility] clonazePAM (KlonoPIN) 0.5 MG tablet 04-02 00:00: 00 04-03 00:00 :00 No .25mg Take 0.5 tablets (0.25 mg total) by mouth 2 (two) times daily as needed for Anxiety for up to 30 days. Max Daily Amount: 0.5 mg [facility] lacosamide (VIMPAT) 200 mg in NaCl 0.9% (NS) 50 mL piggyback 12-11 19:45: 00 12-11 19:57 :00 No 200mg 200 mg, IV Piggyback, ONCE, 1 dose, On Thu12/11/22 at 1445, Administer over 30 Minutes, 50 mL
Facu lty member approving Restricted medication : Alfonso ALVARADO [facility] ketorolac (TORADOL) injection 15 mg 12-11 18:15: 00 12-11 17:25 :00 No 15mg 15 mg, Slow IV Push, ONCE, 1 dose, On Thu12/11/22 at 1315, [facility] iopamidol (ISOVUE 370-500 mL) injection 80 mL 12-11 16:30: 00 12-11 16:27 :00 No [id number] 80mL 80 mL, Intravenou s, ONCE, 1 dose, On Arpita 12/11/22 at 1130, Routine [facility] nitroglycer in (NITROL) 2 % ointment 0.5 Inch 12-11 15:30: 00 12-11 14:31 :00 No .5[in_u s] 0.5 Inch, Transderma l (Apply To Skin), ONCE, 1 dose, On Thu12/11/22 at 1030, [facility] aspirin chewable tablet 324 mg 12-11 15:30: 00 12-11 14:30 :00 No 324mg 324 mg, Oral, ONCE, 1 dose, On Thu12/11/22 at 1030, Routine [facility] ondansetron (ZOFRAN (PF)) injection 4 mg 12-11 15:30: 00 12-11 14:29 :00 No 4mg 4 mg, Slow IV Push, ONCE, 1 dose, On Thu12/11/22 at 1030, [facility] LORazepam (ATIVAN) injection 1 mg 12-11 15:00: 00 12-11 14:57 :00 No 1mg 1 mg, Slow IV Push, ONCE, 1 dose, On Thu12/11/22 at 1000, STAT [facility] Lacosamide (VIMPAT) 100 mg tablet 12-11 00:00: 00 Yes [id number] 100mg Take 1 tablet by mouth in the morning and 1 tablet in the evening. [facility] acetaminoph en-codeine (TYLENOL #3) 300-30 mg tablet 1 tablet 11-18 05:30: 00 11-18 05:30 :00 No 1{tbl} 1 tablet, Oral, ONCE, 1 dose, On Thu11/18/22 at 0030, [facility] methocarbam oL (ROBAXIN) tablet 1,000 mg 11-18 05:30: 00 11-18 05:30 :00 No 1000mg 1,000 mg, Oral, ONCE, 1 dose, On Thu11/18/22 at 0030, [facility] ondansetron (ZOFRAN (PF)) injection 4 mg 11-18 04:45: 00 11-18 03:38 :00 No 4mg 4 mg, Slow IV Push, ONCE, 1 dose, On Thu11/17/22 at 2345, [facility] morpHINE (4 mg/mL) injection 4 mg 11-18 03:45: 00 11-18 03:38 :00 No 4mg 4 mg, Slow IV Push, ONCE, 1 dose, On Thu11/17/22 at 2245, Routine [facility] methocarbam oL (ROBAXIN) injection 1,000 mg 11-18 00:30: 00 11-17 23:47 :00 No 1000mg 1,000 mg, Intravenou s, ONCE, 1 dose, On Thu11/17/22 at 1930, [facility] methocarbam oL 500 mg tablet 11-18 00:00: 00 Yes [id number] 1000mg Take 2 tablets by mouth 4 (four) times daily as needed for Pain (scale 7-10). [facility] methocarbam oL 500 mg tablet 11-18 00:00: 00 Yes [id number] 1000mg Take 2 tablets by mouth 4 (four) times daily as needed for Pain (scale 7-10). [facility] acetaminoph en-codeine 300-60 mg tablet 11-18 00:00: 00 11-26 04:59 :00 No [id number] 1{tbl} Take 1 tablet by mouth every 6 (six) hours as needed for Pain for up to 7 days. Indication s: acute pain [facility] ketorolac (TORADOL) injection 15 mg 11-18 00:00: 00 11-17 23:08 :00 No 15mg 15 mg, Slow IV Push, ONCE, 1 dose, On Thu11/17/22 at 1900, Routine [facility] morpHINE (4 mg/mL) injection 4 mg 11-17 23:45: 00 11-17 23:49 :00 No 4mg 4 mg, Slow IV Push, ONCE, 1 dose, On Thu11/17/22 at 1845, Routine [facility] ondansetron (ZOFRAN (PF)) injection 4 mg 11-17 23:15: 00 11-17 23:06 :00 No 4mg 4 mg, Slow IV Push, ONCE, 1 dose, On Thu11/17/22 at 1815, MICHAEL [facility] lisinopriL (PRINIVIL,Z ESTRIL) tablet 10 mg 08-02 15:00: 00 Yes 10mg 10 mg, Oral, DAILY, First dose on Thu08/02/22 at 0900, Until Discontinu ed, Routine [facility] predniSONE (DELTASONE) tablet 40 mg 08-02 15:00: 00 08-07 14:59 :00 No 40mg 40 mg, Oral, DAILY, 5 doses, First dose on Thu08/02/22 at 0900, Last dose on Thu08/06/22 at 0900, Routine [facility] morpHINE (2 mg/mL) injection 2 mg 08-02 03:29: 15 Yes 2mg 2 mg, Slow IV Push, Q4HPRN, Starting on Thu08/01/22 at 2129, Until Discontinu ed, Routine, Pain (scale 7-10) [facility] levETIRAcet am (KEPPRA) in NACL (ISO-OS) 1,000 mg/100 mL RTU 08-02 00:00: 00 Yes 1000mg 1,000 mg, IV Piggyback, Q12H, First dose on Thu08/01/22 at 1800, Until Discontinu ed, Administer over 15 Minutes, 100 mL [facility]AL 08-01 23:49: 34 Yes 1{tbl} Take 1 Tab by mouth daily. [facility] omega-3 fatty acids-vitam in E (FISH OIL) 1,000 mg capsule 08-01 23:49: 34 Yes 1g Take 1 g by mouth daily. [facility] loratadine (CLARITIN LIQUI-GEL) 10 mg capsule 08-01 23:49: 34 Yes Take by mouth daily. [facility] ondansetron 4 mg tablet 08-01 23:49: 34 Yes 4mg Take 4 mg by mouth every 8 (eight) hours as needed. [facility] pantoprazol e 40 mg EC tablet 08-01 23:49: 34 Yes 40mg Take 40 mg by mouth daily. [facility] MULTIVITAMI N ORAL 08-01 23:49: 34 Yes 1{tbl} Take 1 Tab by mouth daily. [facility] omega-3 fatty acids-vitam in E (FISH OIL) 1,000 mg capsule 08-01 23:49: 34 Yes 1g Take 1 g by mouth daily. [facility] loratadine (CLARITIN LIQUI-GEL) 10 mg capsule 08-01 23:49: 34 Yes Take by mouth daily. [facility] ondansetron 4 mg tablet 08-01 23:49: 34 Yes 4mg Take 4 mg by mouth every 8 (eight) hours as needed. [facility] pantoprazol e 40 mg EC tablet 08-01 23:49: 34 Yes 40mg Take 40 mg by mouth daily. [facility] MULTIVITAMI N ORAL 08-01 23:49: 34 Yes 1{tbl} Take 1 Tab by mouth daily. [facility] omega-3 fatty acids-vitam in E (FISH OIL) 1,000 mg capsule 08-01 23:49: 34 Yes 1g Take 1 g by mouth daily. [facility] loratadine (CLARITIN LIQUI-GEL) 10 mg capsule 08-01 23:49: 34 Yes Take by mouth daily. [facility] ondansetron 4 mg tablet 08-01 23:49: 34 Yes 4mg Take 4 mg by mouth every 8 (eight) hours as needed. [facility] pantoprazol e 40 mg EC tablet 08-01 23:49: 34 Yes 40mg Take 40 mg by mouth daily. [facility] MULTIVITAMI N ORAL 08-01 23:49: 34 Yes 1{tbl} Take 1 Tab by mouth daily. [facility] omega-3 fatty acids-vitam in E (FISH OIL) 1,000 mg capsule 08-01 23:49: 34 Yes 1g Take 1 g by mouth daily. [facility] loratadine (CLARITIN LIQUI-GEL) 10 mg capsule 08-01 23:49: 34 Yes Take by mouth daily. [facility] ondansetron 4 mg tablet 08-01 23:49: 34 Yes 4mg Take 4 mg by mouth every 8 (eight) hours as needed. [facility] pantoprazol e 40 mg EC tablet 08-01 23:49: 34 Yes 40mg Take 40 mg by mouth daily. [facility] MULTIVITAMI N ORAL 08-01 23:49: 34 Yes 1{tbl} Take 1 Tab by mouth daily. [facility] omega-3 fatty acids-vitam in E (FISH OIL) 1,000 mg capsule 08-01 23:49: 34 Yes 1g Take 1 g by mouth daily. [facility] loratadine (CLARITIN LIQUI-GEL) 10 mg capsule 08-01 23:49: 34 Yes Take by mouth daily. [facility] ondansetron 4 mg tablet 08-01 23:49: 34 Yes 4mg Take 4 mg by mouth every 8 (eight) hours as needed. [facility] pantoprazol e 40 mg EC tablet 08-01 23:49: 34 Yes 40mg Take 40 mg by mouth daily. [facility] benzonatate (TESSALON PERLES) capsule 100 mg 08-01 20:00: 00 Yes 100mg 100 mg, Oral, Q8H, First dose on Thu08/01/22 at 1400, Until Discontinu ed, Routine [facility] ipratropium -albuteroL (DUONEB) 0.5 mg-3 mg(2.5 mg base)/3 mL nebulizer solution 3 mL 08-01 18:00: 00 Yes 3mL 3 mL, Inhalation , QID, First dose on Thu08/01/22 at 1200, Until Discontinu ed, Routine [facility] ipratropium -albuteroL (DUONEB) 0.5 mg-3 mg(2.5 mg base)/3 mL nebulizer solution 3 mL 08-01 17:07: 07 Yes 3mL 3 mL, Inhalation , QIDPRN, Starting on Thu08/01/22 at 1107, Until Discontinu ed, MICHAEL, Wheezing, Shortness of Breath [facility] sulfur hexafluorid e microsphr (LUMASON) injection 5 mL 08-01 17:00: 00 08-01 17:00 :00 No [id number] 5mL 5 mL, Intravenou s, ONCE, 1 dose, On Thu08/01/22 at 1100, Routine
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 medication : WOODY MONTEZ [facility] pantoprazol e (PROTONIX) EC tablet 40 mg 08-01 15:00: 00 Yes 40mg 40 mg, Oral, DAILY, First dose on Thu08/01/22 at 0900, Until Discontinu ed, [facility]ine [facility] chewable tablet 81 mg 08-01 15:00: 00 Yes 81mg 81 mg, Oral, DAILY, First dose on Thu08/01/22 at 0900, Until Discontinu ed, Routine [facility] amLODIPine (NORVASC) tablet 10 mg 08-01 15:00: 00 Yes 10mg 10 mg, Oral, DAILY, First dose on Thu08/01/22 at 0900, Until Discontinu ed, Routine [facility] levETIRAcet am (KEPPRA) tablet 500 mg 08-01 14:00: 00 08-01 23:56 :35 No 500mg 500 mg, Oral, BID, First dose on Thu08/01/22 at 0800, Until Discontinu ed, Routine [facility] carvediloL (COREG) tablet 6.25 mg 08-01 14:00: 00 08-01 17:29 :13 No 6.25mg 6.25 mg, Oral, BID MEALS, First dose on Thu08/01/22 at 0800, Until Discontinu ed, Routine [facility] levETIRAcet am (KEPPRA) in NACL (ISO-OS) 1,000 mg/100 mL RTU 08-01 06:45: 00 08-01 06:32 :00 No 1000mg 1,000 mg, IV Piggyback, ONCE, 1 dose, On Thu08/01/22 at 0045, Administer over 15 Minutes, 100 mL [facility] LORazepam (ATIVAN) injection 1 mg 08-01 05:52: 54 Yes 1mg 1 mg, Slow IV Push, Q4HPRN, Starting on Thu07/31/22 at 2352, Until Discontinu ed, Routine, Seizures, Agitation, Anxiety, ETOH / Cocaine Withdrawl [facility] foLIC acid (FOLATE) tablet 1 mg 08-01 05:45: 00 Yes 1mg 1 mg, Oral, DAILY, First dose on Thu07/31/22 at 2345, Until Discontinu ed, Routine [facility] thiamine (VITAMIN B1) tablet 100 mg 08-01 05:45: 00 Yes 100mg 100 mg, Oral, DAILY, First dose on Thu07/31/22 at 2345, Until Discontinu ed, Routine [facility] LORazepam (ATIVAN) injection 0.5 mg 08-01 05:30: 00 08-01 05:29 :00 No .5mg 0.5 mg, Slow IV Push, ONCE, 1 dose, On Thu07/31/22 at 2330, MICHAEL [facility] atorvastati n (LIPITOR) tablet 40 mg 08-01 03:00: 00 Yes 40mg 40 mg, Oral, QHS, First dose on Thu07/31/22 at 2100, Until Discontinu ed, Routine [facility] diphenhydrA MINE (BENADRYL) tablet 25 mg 08-01 00:32: 02 Yes 25mg 25 mg, Oral, Q6HPRN, Starting on Thu07/31/22 at 1832, Until Discontinu ed, Routine, Itching [facility] enoxaparin (LOVENOX) injection 40 mg 07-31 23:00: 00 Yes 40mg 40 mg, Subcutaneo us, DAILY, First dose on Thu07/31/22 at 1700, Until Discontinu ed, Routine [facility] morpHINE (2 mg/mL) injection 2 mg 07-31 23:00: 00 07-31 22:29 :00 No 2mg 2 mg, Slow IV Push, ONCE, 1 dose, On Thu07/31/22 at 1700, Routine [facility] HYDROcodone -acetaminop hen (NORCO) 10-325 mg tablet 1 tablet 07-31 22:01: 36 Yes 1{tbl} 1 tablet, Oral, Q6HPRN, Starting on Thu07/31/22 at 1601, Until Discontinu ed, Routine, Pain (scale 7-10) [facility] HYDROcodone -acetaminop hen (NORCO 5) 5-325 mg tablet 1 tablet 07-31 22:01: 34 08-02 22:00 :34 No 1{tbl} 1 tablet, Oral, Q6HPRN, Starting on Arpita 07/31/22 at 1601, Until 08/02/22 at 1600, Routine, Pain (scale 4-6) [facility] acetaminoph en (TYLENOL) tablet 650 mg 07-31 22:01: 33 Yes 650mg 650 mg, Oral, Q6HPRN, Starting on Arpita 07/31/22 at 1601, Until Discontinu ed, Routine, Pain (scale 1-3) [facility] ketorolac (TORADOL) injection 15 mg 07-31 21:45: 00 07-31 20:50 :00 No 15mg 15 mg, Slow IV Push, ONCE, 1 dose, On Arpita 07/31/22 at 1545, Routine [facility] ondansetron (ZOFRAN (PF)) injection 4 mg 07-31 21:00: 00 07-31 20:47 :00 No 4mg 4 mg, Slow IV Push, ONCE, 1 dose, On Arpita 07/31/22 at 1500, MICHAEL [facility] furosemide (LASIX) injection 40 mg 07-31 20:15: 00 Yes 40mg 40 mg, Slow IV Push, Q12H, First dose on Arpita 07/31/22 at 1415, Until Discontinu ed, Routine [facility] methylpredn isolone sod succ (SOLU-MEDRO L) injection 125 mg 07-31 19:30: 00 07-31 18:54 :00 No 125mg 125 mg, Slow IV Push, ONCE NOW, 1 dose, On Arpita 07/31/22 at 1330, MICHAEL [facility] ipratropium -albuteroL (DUONEB) 0.5 mg-3 mg(2.5 mg base)/3 mL nebulizer solution 3 mL 07-31 19:30: 00 07-31 18:48 :00 No 3mL 3 mL, Inhalation , ONCE, 1 dose, On Arpita 07/31/22 at 1330, MICHAEL [facility] pantoprazol e 40 mg EC tablet 07-31 17:15: 40 Yes 40mg Take 40 mg by mouth daily. [facility] MULTIVITAMI N ORAL 07-31 15:50: 57 Yes 1{tbl} Take 1 Tab by mouth daily. [facility] loratadine (CLARITIN LIQUI-GEL) 10 mg capsule 07-31 15:50: 57 Yes Take by mouth daily. [facility] ondansetron 4 mg tablet 07-31 15:50: 57 Yes 4mg Take 4 mg by mouth every 8 (eight) hours as needed. [facility] omega-3 fatty acids-vitam in E (FISH OIL) 1,000 mg capsule 07-31 15:21: 27 Yes 1g Take 1 g by mouth daily. [facility] TAKE ONE (1) TABLET(S) BY MOUTH THREE TIMES A DAY NEEDED. 07-28 00:00: 00 No Methylpredn isolone 4 mg tablet 2021-07 0 00:00: 00 05-12 04:59 :00 No [id number] 4mg Take 1 tablet through enteral tube in the morning for 1 dose. [facility] Methylpredn isolone 4 mg tablet 2021-07 0 00:00: 00 05-11 04:59 :00 No [id number] 4mg Take 1 tablet through enteral tube every 12 (twelve) hours for 2 doses. [facility] MULTIVITAMI N ORAL 2021-07 14:44: 48 Yes 1{tbl} Take 1 Tab by mouth daily. [facility] omega-3 fatty acids-vitam in E (FISH OIL) 1,000 mg capsule 2021-07 14:44: 48 Yes 1g Take 1 g by mouth daily. [facility] loratadine (CLARITIN LIQUI-GEL) 10 mg capsule 2021-07 14:44: 48 Yes Take by mouth daily. [facility] ondansetron (ZOFRAN) 4 mg tablet 2021-07 14:44: 48 Yes 4mg Take 4 mg by mouth every 8 (eight) hours as needed. [facility] pantoprazol e (PROTONIX) 40 mg EC tablet 2021-07 14:44: 48 Yes 40mg Take 40 mg by mouth daily. [facility] DULoxetine (CYMBALTA) capsule 30 mg 2021-07 14:00: 00 Yes 30mg 30 mg, Oral, DAILY, First dose on Thu05/08/22 at 0900, Until Discontinu ed, Routine [facility] divalproex (DEPAKOTE) EC tablet 1,000 mg 2021-07 13:00: 00 Yes 1000mg 1,000 mg, Oral, BID, First dose (after last modificati on) on Thu05/08/22 at 0800, Until Discontinu ed, Routine [facility] Methylpredn isolone (MEDROL) tablet 4 mg 2021-07 08:50: 10 05-09 08:59 :00 No 4mg 4 mg, Oral, Q8H TAPER, 3 doses, First dose on Thu05/08/22 at 0400, Last dose on Thu05/08/22 at 2000, Routine [facility] acetaminoph en-codeine (TYLENOL #3) 300-30 mg tablet 1 tablet 2021-07 04:07: 01 Yes 1{tbl} 1 tablet, Oral, Q4HPRN, Starting on Thu05/07/22 at 2307, Until Discontinu ed, Routine, Pain (scale 7-10) [facility] morpHINE (2 mg/mL) injection 2 mg 2021-07 03:03: 15 Yes 2mg 2 mg, Slow IV Push, Q4HPRN, Starting on Thu05/07/22 at 2203, Until Discontinu ed, Routine, Pain (scale 7-10) [facility] LORazepam (ATIVAN) tablet 1 mg 2021-07 00:02: 18 Yes 1mg 1 mg, Oral, Q6HPRN, Starting on Thu05/07/22 at 1902, Until Discontinu ed, Routine, Anxiety [facility] cyclobenzap rine 5 mg tablet 2021-07 00:00: 00 Yes [id number] 5mg Take 1 tablet by mouth in the morning and 1 tablet at noon and 1 tablet in the evening. [facility] cyclobenzap rine 5 mg tablet 2021-07 00:00: 00 Yes [id number] 5mg Take 1 tablet by mouth in the morning and 1 tablet at noon and 1 tablet in the evening. [facility] cyclobenzap rine 5 mg tablet 2021-07 00:00: 00 Yes [id number] 5mg Take 1 tablet by mouth in the morning and 1 tablet at noon and 1 tablet in the evening. [facility] cyclobenzap rine 5 mg tablet 2021-07 00:00: 00 Yes [id number] 5mg Take 1 tablet by mouth in the morning and 1 tablet at noon and 1 tablet in the evening. [facility] cyclobenzap rine 5 mg tablet 2021-07 00:00: 00 Yes [id number] 5mg Take 1 tablet by mouth in the morning and 1 tablet at noon and 1 tablet in the evening. [facility] cyclobenzap rine 5 mg tablet 2021-07 00:00: 00 Yes [id number] 5mg Take 1 tablet by mouth in the morning and 1 tablet at noon and 1 tablet in the evening. [facility] cyclobenzap rine 5 mg tablet 2021-07 00:00: 00 Yes [id number] 5mg Take 1 tablet by mouth in the morning and 1 tablet at noon and 1 tablet in the evening. [facility] DULoxetine (CYMBALTA) 30 mg capsule 2021-07 00:00: 00 06-08 05:59 :00 No [id number] 60mg Take 2 capsules by mouth in the morning for 30 days. [facility] divalproex (DEPAKOTE) 250 mg EC tablet 2021-07 00:00: 06-08 05:59 :00 No [id number] 750mg Take 3 tablets by mouth every 8 (eight) hours for 30 days. [facility] LORazepam 1 mg tablet 2021-07 00:00: 05-19 04:59 :00 No [id number] 1mg Take 1 tablet by mouth every 6 (six) hours as needed for Anxiety or Agitation for up to 10 days. [facility] acetaminoph en-codeine 300-30 mg tablet 2021-07 00:00: 05-16 04:59 :00 No [id number] 1{tbl} Take 1 tablet by mouth every 4 (four) hours as needed for Pain (scale 7-10) for up to 7 days. Indication s: acute pain [facility] Methylpredn isolone 4 mg tablet 2021-07 00:00: 00 05-10 04:59 :00 No [id number] 4mg Take 1 tablet by mouth every 8 (eight) hours for 3 doses. [facility] divalproex (DEPAKOTE) EC tablet 750 mg 2021-07 01:00: 00 05-08 09:40 :23 No 750mg 750 mg, Oral, BID, First dose on Thu05/06/22 at 2000, Until Discontinu ed, Routine [facility] levETIRAcet am (KEPPRA) tablet 1,500 mg 2021-07 13:00: 00 05-06 18:38 :22 No 1500mg 1,500 mg, Oral, BID, First dose (after last modificati on) on Thu05/06/22 at 0800, Until Discontinu ed, Routine [facility] levETIRAcet am (KEPPRA) in NACL (ISO-OS) 1,000 mg/100 mL RTU 2021-07 05:00: 00 05-06 05:46 :00 No 1000mg 1,000 mg, IV Piggyback, ONCE, 1 dose, On Thu05/06/22 at 0000, Administer over 15 Minutes, 100 mL [facility] methocarbam oL (ROBAXIN) tablet 500 mg 2021-07 02:15: 00 05-06 23:21 :42 No 500mg 500 mg, Oral, QID, First dose on Thu05/05/22 at 2115, Until Discontinu ed, Routine [facility] LORazepam (ATIVAN) tablet 2 mg 2021-07 01:30: 00 05-06 01:03 :00 No 2mg 2 mg, Oral, ONCE, 1 dose, On Thu05/05/22 at 2030, Routine [facility] levETIRAcet am (KEPPRA) tablet 1,000 mg 2021-07 01:00: 00 05-06 04:48 :06 No 1000mg 1,000 mg, Oral, BID, First dose on Thu05/05/22 at 2000, Until Discontinu ed, Routine [facility] enoxaparin (LOVENOX) injection 40 mg 2021-07 00:15: 00 Yes 40mg 40 mg, Subcutaneo us, Q24H, First dose on Thu05/05/22 at 1915, Until Discontinu ed, Routine [facility] levETIRAcet am (KEPPRA) in NACL (ISO-OS) 1,000 mg/100 mL RTU 2021-07 19:45: 00 05-05 20:05 :00 No 1000mg 1,000 mg, IV Piggyback, ONCE, 1 dose, On Thu05/05/22 at 1445, Administer over 15 Minutes, 100 mL [facility] clonazePAM (KLONOPIN) tablet 0.5 mg 2021-07 19:30: 00 Yes .5mg 0.5 mg, Oral, BID, First dose on Thu05/05/22 at 1430, Until Discontinu ed, Routine [facility] ibuprofen (IBU) tablet 600 mg 2021-07 19:30: 00 Yes 600mg 600 mg, Oral, TID MEALS, First dose on Thu05/05/22 at 1430, Until Discontinu ed, Routine [facility] gabapentin (NEURONTIN) capsule 300 mg 2021-07 19:30: 00 Yes 300mg 300 mg, Oral, TID, First dose on Thu05/05/22 at 1430, Until Discontinu ed, Routine [facility] cyclobenzap rine (FLEXERIL) tablet 5 mg 2021-07 19:30: 00 Yes 5mg 5 mg, Oral, TID, First dose on Thu05/05/22 at 1430, Until Discontinu ed, Routine [facility] acetaminoph en (TYLENOL) tablet 1,000 mg 2021-07 19:30: 00 Yes 1000mg 1,000 mg, Oral, Q8H, First dose on Thu05/05/22 at 1430, Until Discontinu ed, Routine [facility] pantoprazol e (PROTONIX) EC tablet 40 mg 2021-07 14:00: 00 Yes 40mg 40 mg, Oral, DAILY, First dose on Thu05/05/22 at 0900, Until Discontinu ed, Routine [facility] docusate (COLACE) capsule 100 mg 2021-07 14:00: 00 Yes 100mg 100 mg, Oral, DAILY, First dose on Thu05/05/22 at 0900, Until Discontinu ed, Routine [facility] HYDROcodone -acetaminop hen (NORCO) 10-325 mg tablet 1 tablet 2021-07 10:32: 02 05-05 19:18 :52 No 1{tbl} 1 tablet, Oral, Q6HPRN, Starting on Thu05/05/22 at 0532, Until Thu05/05/22 at 1418, Routine, Pain (scale 7-10) [facility] ondansetron (ZOFRAN (PF)) injection 4 mg 2021-07 06:49: 57 Yes 4mg 4 mg, Slow IV Push, Q6HPRN, Starting on Thu05/05/22 at 0149, Until Discontinu ed, Routine, Nausea and Vomiting (N/V) [facility] HYDROcodone -acetaminop hen (NORCO 5) 5-325 mg tablet 1 tablet 2021-07 06:49: 41 05-05 10:32 :14 No 1{tbl} 1 tablet, Oral, Q6HPRN, Starting on Thu05/05/22 at 0149, Until Thu05/05/22 at 0532, Routine, Pain (scale 7-10) [facility] acetaminoph en (TYLENOL) tablet 325 mg 2021-07 06:49: 39 05-05 19:18 :52 No 325mg 325 mg, Oral, Q4HPRN, Starting on Thu05/05/22 at 0149, Until Thu05/05/22 at 1418, Routine, Pain (scale 4-6) [facility] ondansetron (ZOFRAN) tablet 4 mg 2021-07 04:00: 00 05-05 03:26 :00 No 4mg 4 mg, Oral, ONCE, 1 dose, On 05/04/22 at 2300, Routine [facility] morpHINE (2 mg/mL) injection 2 mg 2021-07 04:00: 00 05-05 03:26 :00 No 2mg 2 mg, Slow IV Push, ONCE, 1 dose, On 05/04/22 at 2300, Routine [facility] aspirin 81 mg chewable tablet 04-16 00:00: 00 Yes [id number] 81mg Take 1 tablet by mouth in the morning. [facility] aspirin 81 mg chewable tablet 04-16 00:00: 00 Yes [id number] 81mg Take 1 tablet by mouth in the morning. [facility] aspirin 81 mg chewable tablet 0 04-16 00:00: 00 Yes [id number] 81mg Take 1 tablet by mouth in the morning. [facility] aspirin 81 mg chewable tablet 0 04-16 00:00: 00 Yes [id number] 81mg Take 1 tablet by mouth in the morning. [facility] aspirin 81 mg chewable tablet 04-16 00:00: 00 Yes [id number] 81mg Take 1 tablet by mouth in the morning. [facility] aspirin 81 mg chewable tablet 0 04-16 00:00: 00 Yes [id number] 81mg Take 1 tablet by mouth in the morning. [facility] aspirin 81 mg chewable tablet 04-16 00:00: 00 Yes [id number] 81mg Take 1 tablet by mouth in the morning. [facility] aspirin 81 mg chewable tablet 04-16 00:00: 00 Yes [id number] 81mg Take 1 tablet by mouth in the morning. [facility] MULTIVITAMI N ORAL 04-15 17:39: 14 Yes 1{tbl} Take 1 Tab by mouth daily. [facility] omega-3 fatty acids-vitam in E (FISH OIL) 1,000 mg capsule 04-15 17:39: 14 Yes 1g Take 1 g by mouth daily. [facility] loratadine (CLARITIN LIQUI-GEL) 10 mg capsule 04-15 17:39: 14 Yes Take by mouth daily. [facility] ondansetron (ZOFRAN) 4 mg tablet 04-15 17:39: 14 Yes 4mg Take 4 mg by mouth every 8 (eight) hours as needed. [facility] pantoprazol e (PROTONIX) 40 mg EC tablet 04-15 17:39: 14 Yes 40mg Take 40 mg by mouth daily. [facility] lisinopril- hydrochloro thiazide 20-12.5 mg per tablet 04-15 15:58: 35 04-15 00:00 :00 No 1{tbl} Take 1 tablet by mouth daily. [facility] levetiracet am (KEPPRA ORAL) 04-15 15:58: 35 04-15 00:00 :00 No Take by mouth. [facility] acetaminoph en-codeine (TYLENOL #4) 300-60 mg tablet 1 tablet 04-15 05:39: 23 04-15 14:39 :42 No 1{tbl} 1 tablet, Oral, Q6HPRN, Starting on Thu04/15/22 at 0039, Until Thu04/15/22 at 0939, Routine, Pain (scale 4-6), Pain (scale 1-3) [facility] LORazepam (ATIVAN) tablet 2 mg 04-15 03:30: 00 04-15 10:27 :00 No 2mg 2 mg, Oral, ONCE, 1 dose, On Thu04/14/22 at 2230, Routine [facility] levETIRAcet am (KEPPRA) tablet 1,000 mg 04-15 02:45: 00 Yes 1000mg 1,000 mg, Oral, BID, First dose (after last modificati on) on Thu04/14/22 at 2145, Until Discontinu ed, Routine [facility] ketorolac (TORADOL) injection 15 mg 04-15 02:13: 00 04-15 02:22 :00 No 15mg 15 mg, Slow IV Push, ONCE, 1 dose, On Thu04/14/22 at 2115, Routine [facility] levETIRAcet am 1,000 mg tablet 04-15 00:00: 00 Yes [id number] 1000mg Take 1 tablet by mouth in the morning and 1 tablet in the evening. [facility] atorvastati n 40 mg tablet 04-15 00:00: 00 Yes [id number] 40mg Take 1 tablet by mouth at bedtime. [facility] atorvastati n 40 mg tablet 04-15 00:00: 00 Yes [id number] 40mg Take 1 tablet by mouth at bedtime. [facility] atorvastati n 40 mg tablet 04-15 00:00: 00 Yes [id number] 40mg Take 1 tablet by mouth at bedtime. [facility] atorvastati n 40 mg tablet 04-15 00:00: 00 Yes [id number] 40mg Take 1 tablet by mouth at bedtime. [facility] atorvastati n 40 mg tablet 04-15 00:00: 00 Yes [id number] 40mg Take 1 tablet by mouth at bedtime. [facility] atorvastati n 40 mg tablet 04-15 00:00: 00 Yes [id number] 40mg Take 1 tablet by mouth at bedtime. [facility] atorvastati n 40 mg tablet 04-15 00:00: 00 Yes [id number] 40mg Take 1 tablet by mouth at bedtime. [facility] atorvastati n 40 mg tablet 04-15 00:00: 00 Yes [id number] 40mg Take 1 tablet by mouth at bedtime. [facility] levETIRAcet am 1,000 mg tablet 04-15 00:00: 00 05-08 00:00 :00 No [id number] 1000mg Take 1 tablet by mouth in the morning and 1 tablet in the evening. [facility] lidocaine 5 % (700 mg/patch) patch 04-15 00:00: 00 04-23 04:59 :00 No [id number] 1{patch } Apply 1 Patch to area(s) in the morning for 7 days. [facility] HYDROcodone -acetaminop hen 5-325 mg tablet 04-15 00:00: 00 04-21 04:59 :00 No [id number] 1{tbl} Take 1 tablet by mouth every 6 (six) hours as needed for Pain (scale 7-10) for up to 5 days. Indication s: acute pain [facility] lidocaine (LIDODERM) 5 % (700 mg/patch) patch 1 Patch 04-14 21:45: 29 Yes 1{patch } 1 Patch, Topical, Administer over 12 Hours, [id number], Starting on Thu04/14/22 at 1645, Until Discontinu ed, Routine, Localized pain [facility] aspirin chewable tablet 81 mg 04-14 21:30: 00 Yes 81mg 81 mg, Oral, DAILY, First dose on Thu04/14/22 at 1630, Until Discontinu ed, Routine [facility] acetaminoph en (TYLENOL) tablet 650 mg 04-14 21:29: 25 Yes 650mg 650 mg, Oral, Q6HPRN, Starting on Thu04/14/22 at 1629, Until Discontinu ed, Routine, Pain (scale 1-3), Temp > 38.5 C, Temp > 37.5 C [facility] HYDROcodone -acetaminop hen (NORCO) 10-325 mg tablet 1 tablet 04-14 21:29: 02 04-15 05:39 :41 No 1{tbl} 1 tablet, Oral, Q6HPRN, Starting on Thu04/14/22 at 1629, Until Thu04/15/22 at 0039, Routine, Pain (scale 7-10), Pain (scale 4-6) [facility] sulfur hexafluorid e microsphr (LUMASON) injection 5 mL 04-14 16:45: 00 04-14 16:45 :00 No [id number] 5mL 5 mL, Intravenou s, ONCE, 1 dose, On Thu04/14/22 at 1145, Routine
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 medication : [employer] [employer] [facility] clopidogreL (PLAVIX) 75 mg tablet 75 mg 04-14 14:00: 00 Yes 75mg 75 mg, Oral, DAILY, First dose on Thu04/14/22 at 0900, Until Discontinu ed, Routine [facility] pantoprazol e (PROTONIX) EC tablet 40 mg 04-14 14:00: 00 Yes 40mg 40 mg, Oral, DAILY, First dose on Thu04/14/22 at 0900, Until Discontinu ed, Routine [facility] atorvastati n (LIPITOR) tablet 40 mg 04-14 02:00: 00 Yes 40mg 40 mg, Oral, QHS, First dose on Thu04/13/22 at 2100, Until Discontinu ed, Routine [facility] LORazepam (ATIVAN) tablet 1 mg 04-14 01:30: 00 04-14 01:45 :00 No 1mg 1 mg, Oral, ONCE, 1 dose, On Thu04/13/22 at 2030, Routine [facility] methocarbam oL (ROBAXIN) tablet 500 mg 04-14 01:00: 00 Yes 500mg 500 mg, Oral, QID, First dose on Thu04/13/22 at 2000, Until Discontinu ed, Routine [facility] heparin (porcine) injection 5,000 Units 04-14 01:00: 00 Yes 5000U 5,000 Units, Subcutaneo us, Q12H, First dose on Thu04/13/22 at 2000, Until Discontinu ed, Routine [facility] acetaminoph en (TYLENOL) tablet 650 mg 04-14 00:23: 25 04-14 21:29 :42 No 650mg 650 mg, Oral, Q6HPRN, Starting on Thu04/13/22 at 1923, Until Thu04/14/22 at 1629, Routine, Pain (scale 1-3), Pain (scale 4-6), Temp > 38.5 C, Temp > 37.5 C [facility] lidocaine (LIDODERM) 5 % (700 mg/patch) patch 1 Patch 04-14 00:22: 00 04-14 13:51 :00 No 1{patch } 1 Patch, Topical, Administer over 12 Hours, ONCE, 1 dose, On Thu04/13/22 at 1930, [facility] FENT[facility] PF (SUBLIMAZE (PF)) injection 50 mcg 04-13 20:30: 00 04-13 19:22 :00 No 50ug 50 mcg, Slow IV Push, ONCE, 1 dose, On Thu04/13/22 at 1530, Routine [facility] aspirin chewable tablet 650 mg 04-13 20:15: 00 04-13 20:15 :00 No 650mg 650 mg, Oral, ONCE, 1 dose, On Thu04/13/22 at 1515, Routine [facility] clopidogreL (PLAVIX) 300 mg tablet 300 mg 04-13 20:00: 00 04-13 19:15 :00 No 300mg 300 mg, Oral, ONCE, 1 dose, On Thu04/13/22 at 1500, Routine [facility] ondansetron (ZOFRAN (PF)) injection 4 mg 04-13 19:30: 00 04-13 19:22 :00 No 4mg 4 mg, Slow IV Push, ONCE, 1 dose, On 04/13/22 at 1430, [facility] iopamidol (ISOVUE 370-500 mL) injection 100 mL 04-13 18:31: 00 04-13 18:32 :00 No [id number] 100mL 100 mL, Intravenou s, ONCE, 1 dose, On 04/13/22 at 1345, Routine [facility] NaCl 0.9% (NS) injection 5 mL 04-13 18:14: 11 Yes 5mL 5 mL, Slow IV Push, PRN - SEE INSTRUCTIO NS, Starting on 04/13/22 at 1314, Until Discontinu ed, 10 mL [facility] aspirin chewable tablet 324 mg 11-24 14:00: 00 Yes 324mg 324 mg, Oral, DAILY, First dose on 11/24/21 at 0900, Until Discontinu ed, Routine [facility] metoclopram iker HCl (REGLAN) injection 10 mg 11-23 22:30: 00 11-23 21:24 :00 No 10mg 10 mg, Slow IV Push, ONCE, 1 dose, On 11/23/21 at 1730, [facility] acetaminoph en (TYLENOL) tablet 1,000 mg 11-23 22:15: 00 11-23 21:09 :00 No 1000mg 1,000 mg, Oral, ONCE, 1 dose, On 11/23/21 at 1715, [facility] ondansetron (ZOFRAN (PF)) injection 4 mg 11-23 21:45: 00 11-23 20:30 :00 No 4mg 4 mg, Slow IV Push, ONCE, 1 dose, On 11/23/21 at 1645, [facility] NaCl 0.9% (NS) bolus infusion 1,000 mL 11-23 21:30: 00 11-23 21:56 :00 No 1000mL at 999 mL/hr, 1,000 mL, IV Infusion, ONCE, 1 dose, On 11/23/21 at 1630, MICHAEL [facility] LORazepam (ATIVAN) injection 4 mg 11-23 21:30: 00 11-23 20:23 :00 No 4mg 4 mg, Slow IV Push, ONCE, 1 dose, On 11/23/21 at 1630, STAT [facility] levETIRAcet am (KEPPRA) in NACL (ISO-OS) 1,500 mg/100 mL RTU 11-23 21:30: 00 11-23 20:47 :00 No 1500mg 1,500 mg, IV Piggyback, ONCE, 1 dose, On 11/23/21 at 1630, Administer over 15 Minutes, 100 mL [facility] Dose Unknown 2-0 4-08 00:00: 00 No Dose Unknown 2-0 4-08 00:00: 00 No Prozac 20 mg capsule 2021-0 3-21 00:00: 00 No 1mg Prozac 20 mg capsule 2-0 3-21 00:00: 00 No 1mg Dose Unknown [...] 00:00: 00 No 1mg Dose Unknown 2022-0 3- 00:00: 00 No Dose Unknown 3- 00:00: 00 No Dose Unknown 0 3- 00:00: 00 No Dose Unknown 3- 00:00: 00 No Dose Unknown 3- 00:00: 00 No Dose Unknown 3- 00:00: 00 No Dose Unknown 0 3- 00:00: 00 No Dose Unknown 3- 00:00: 00 No Dose Unknown 0 [...] No 1mg ibuprofen 800 mg tablet 2020-07 00:00: 00 No 1mg levetiracet am 500 [...] y
Durat ion of Therapy: 7 days [facility] levoFLOXaci n (LEVAQUIN) tablet 500 mg 03-17 04:00: 00 03-17 04:22 :00 No 500mg 500 mg, Oral, ONCE, 1 dose, 03/16/21 at 2315, MICHAEL
Re ason for Anti-Infec tive: Documented Infection< br>Documen sherice Infection Site: Respirator y
Durat ion of Therapy: 7 days [facility] morpHINE injection 4 mg 03-17 01:58: 00 03-17 02:13 :00 No 4mg 4 mg, Slow IV Push, ONCE, 1 dose, 03/16/21 at 2100, STAT [facility] ondansetron (ZOFRAN (PF)) injection 4 mg 03-17 01:58: 00 03-17 02:12 :00 No 4mg 4 mg, Slow IV Push, ONCE, 1 dose, 03/16/21 at 2100, [facility] morpHINE injection 4 mg 03-17 01:58: 00 03-17 02:13 :00 No 4mg 4 mg, Slow IV Push, ONCE, 1 dose, 03/16/21 at 2100, STAT [facility] ondansetron (ZOFRAN (PF)) injection 4 mg 03-17 01:58: 00 03-17 02:12 :00 No 4mg 4 mg, Slow IV Push, ONCE, 1 dose, 03/16/21 at 2100, [facility] ipratropium -albuteroL (DUONEB) 0.5 mg-3 mg(2.5 mg base)/3 mL nebulizer solution 3 mL 03-17 01:57: 00 03-17 02:15 :00 No 3mL 3 mL, Inhalation , ONCE, 1 dose, 03/16/21 at 2100, [facility] NaCl 0.9% (NS) IV infusion 1,000 mL 03-17 01:57: 00 03-17 03:07 :00 No 1000mL at 999 mL/hr, Intravenou s, ONCE, 1 dose, 03/16/21 at 2100, [facility] methylpredn isolone sod succ (SOLU-MEDRO L) injection 125 mg 03-17 01:57: 00 03-17 02:11 :00 No 125mg 125 mg, Slow IV Push, ONCE, 1 dose, 03/16/21 at 2100, [facility] ipratropium -albuteroL (DUONEB) 0.5 mg-3 mg(2.5 mg base)/3 mL nebulizer solution 3 mL 03-17 01:57: 00 03-17 02:15 :00 No 3mL 3 mL, Inhalation , ONCE, 1 dose, 03/16/21 at 2100, [facility] ipratropium -albuteroL (DUONEB) 0.5 mg-3 mg(2.5 mg base)/3 mL nebulizer solution 3 mL 03-17 01:57: 00 03-17 02:15 :00 No 3mL 3 mL, Inhalation , ONCE, 1 dose, 03/16/21 at 2099, [facility] NaCl 0.9% (NS) IV infusion 1,000 mL 03-17 01:57: 00 03-17 03:07 :00 No 1000mL at 999 mL/hr, Intravenou s, ONCE, 1 dose, 03/16/21 at 2100, [facility] methylpredn isolone sod succ (SOLU-MEDRO L) injection 125 mg 03-17 01:57: 00 03-17 02:11 :00 No 125mg 125 mg, Slow IV Push, ONCE, 1 dose, 03/16/21 at 2100, [facility] ipratropium -albuteroL (DUONEB) 0.5 mg-3 mg(2.5 mg base)/3 mL nebulizer solution 3 mL 03-17 01:57: 00 03-17 02:15 :00 No 3mL 3 mL, Inhalation , ONCE, 1 dose, 03/16/21 at 2100, [facility] levoFLOXaci n 500 mg tablet 03-17 00:00: 00 03-24 04:59 :00 No [id number] 500mg Take 1 tablet by mouth daily for 6 days. [facility] levoFLOXaci n 500 mg tablet 03-17 00:00: 00 03-24 04:59 :00 No [id number] 500mg Take 1 tablet by mouth daily for 6 days. [facility] levoFLOXaci n 500 mg tablet 03-17 00:00: 00 03-24 04:59 :00 No [id number] 500mg Take 1 tablet by mouth daily for 6 days. [facility] levoFLOXaci n 500 mg tablet 03-17 00:00: 00 03-24 04:59 :00 No [id number] 500mg Take 1 tablet by mouth daily for 6 days. [facility] predniSONE 10 mg tablet 03-17 00:00: 00 03-22 04:59 :00 No [id number] 30mg Take 3 tablets by mouth daily for 4 days. [facility] predniSONE 10 mg tablet 03-17 00:00: 00 03-22 04:59 :00 No [id number] 30mg Take 3 tablets by mouth daily for 4 days. [facility] predniSONE 10 mg tablet 03-17 00:00: 00 03-22 04:59 :00 No [id number] 30mg Take 3 tablets by mouth daily for 4 days. [facility] predniSONE 10 mg tablet 03-17 00:00: 00 03-22 04:59 :00 No [id number] 30mg Take 3 tablets by mouth daily for 4 days. [facility] albuterol (VENTOLIN) inhaler 4 Puff 03-15 01:45: 00 03-15 00:44 :00 No [id number] 4{puff} 4 Puff, Inhalation , ONCE, 1 dose, [facility] 03/14/21 at 2044, Routine [facility] dexamethaso ne (DECADRON) injection 10 mg 03-15 01:45: 00 03-15 00:45 :00 No [id number] 10mg 10 mg, Intramuscu lar, ONCE, 1 dose, [place] 03/14/21 at 204, Routine [facility] albuterol 2.5 mg /3 mL (0.083 %) nebulizer solution 03-15 00:00: 00 Yes [id number] 2.5mg Inhale 3 mL every 4 (four) hours as needed for Wheezing or Shortness of Breath. [facility] albuterol 2.5 mg /3 mL (0.083 %) nebulizer solution 03-15 00:00: 00 Yes [id number] 2.5mg Inhale 3 mL every 4 (four) hours as needed for Wheezing or Shortness of Breath. [facility] albuterol 2.5 mg /3 mL (0.083 %) nebulizer solution 03-15 00:00: 00 Yes [id number] 2.5mg Inhale 3 mL every 4 (four) hours as needed for Wheezing or Shortness of Breath. [facility] albuterol 2.5 mg /3 mL (0.083 %) nebulizer solution 03-15 00:00: 00 Yes [id number] 2.5mg Inhale 3 mL every 4 (four) hours as needed for Wheezing or Shortness of Breath. [facility] albuterol 2.5 mg /3 mL (0.083 %) nebulizer solution 03-15 00:00: 00 Yes [id number] 2.5mg Inhale 3 mL every 4 (four) hours as needed for Wheezing or Shortness of Breath. [facility] albuterol 2.5 mg /3 mL (0.083 %) nebulizer solution 03-15 00:00: 00 Yes [id number] 2.5mg Inhale 3 mL every 4 (four) hours as needed for Wheezing or Shortness of Breath. [facility] albuterol 2.5 mg /3 mL (0.083 %) nebulizer solution 03-15 00:00: 00 Yes [id number] 2.5mg Inhale 3 mL every 4 (four) hours as needed for Wheezing or Shortness of Breath. [facility] albuterol 2.5 mg /3 mL (0.083 %) nebulizer solution 03-15 00:00: 00 Yes [id number] 2.5mg Inhale 3 mL every 4 (four) hours as needed for Wheezing or Shortness of Breath. [facility] albuterol 2.5 mg /3 mL (0.083 %) nebulizer solution 03-15 00:00: 00 Yes [id number] 2.5mg Inhale 3 mL every 4 (four) hours as needed for Wheezing or Shortness of Breath. [facility] albuterol 2.5 mg /3 mL (0.083 %) nebulizer solution 03-15 00:00: 00 Yes [id number] 2.5mg Inhale 3 mL every 4 (four) hours as needed for Wheezing or Shortness of Breath. [facility] albuterol 2.5 mg /3 mL (0.083 %) nebulizer solution 03-15 00:00: 00 Yes [id number] 2.5mg Inhale 3 mL every 4 (four) hours as needed for Wheezing or Shortness of Breath. [facility] albuterol 2.5 mg /3 mL (0.083 %) nebulizer solution 03-15 00:00: 00 Yes [id number] 2.5mg Inhale 3 mL every 4 (four) hours as needed for Wheezing or Shortness of Breath. [facility] albuterol 2.5 mg /3 mL (0.083 %) nebulizer solution 03-15 00:00: 00 Yes [id number] 2.5mg Inhale 3 mL every 4 (four) hours as needed for Wheezing or Shortness of Breath. [facility] albuterol 2.5 mg /3 mL (0.083 %) nebulizer solution 03-15 00:00: 00 Yes [id number] 2.5mg Inhale 3 mL every 4 (four) hours as needed for Wheezing or Shortness of Breath. [facility] albuterol 2.5 mg /3 mL (0.083 %) nebulizer solution 03-15 00:00: 00 Yes [id number] 2.5mg Inhale 3 mL every 4 (four) hours as needed for Wheezing or Shortness of Breath. [facility] 2.5 mg /3 mL (0.083 %) nebulizer solution 03-15 00:00: 00 Yes [id number] 2.5mg Inhale 3 mL every 4 (four) hours as needed for Wheezing or Shortness of Breath. [facility] albuterol 2.5 mg /3 mL (0.083 %) nebulizer solution 03-15 00:00: 00 Yes [id number] 2.5mg Inhale 3 mL every 4 (four) hours as needed for Wheezing or Shortness of Breath. [facility] albuterol 2.5 mg /3 mL (0.083 %) nebulizer solution 03-15 00:00: 00 Yes [id number] 2.5mg Inhale 3 mL every 4 (four) hours as needed for Wheezing or Shortness of Breath. [facility] levETIRAcet am (KEPPRA) in NACL (ISO-OS) 1,000 mg/100 mL RTU 02-19 20:15: 00 02-19 19:30 :00 No 1000mg 1,000 mg, IV Infusion, ONCE, 1 dose, Thu02/19/21 at 1515, Administer over 15 Minutes, 100 mL [facility] levetiracet am (KEPPRA ORAL) 02-19 19:45: 33 Yes Take by mouth. [facility] levetiracet am (KEPPRA ORAL) 02-19 19:45: 33 Yes Take by mouth. [facility] levetiracet am (KEPPRA ORAL) 02-19 19:45: 33 Yes Take by mouth. [facility] levetiracet am (KEPPRA ORAL) 02-19 19:45: 33 Yes Take by mouth. [facility] levetiracet am (KEPPRA ORAL) 02-19 19:45: 33 Yes Take by mouth. [facility] levetiracet am (KEPPRA ORAL) 02-19 19:45: 33 Yes Take by mouth. [facility] LISINOPRIL- HYDROCHLORO THIAZIDE ORAL 02-19 19:41: 15 02-19 00:00 :00 No Take by mouth. [facility] dicyclomine (BENTYL) injection 20 mg 02-19 19:15: 02-19 19:04 :00 No 20mg 20 mg, Intramuscu lar, ONCE, 1 dose, 02/19/21 at 1415, Routine [facility] proMETHazin e (PHENERGAN) 25 mg in NaCl 0.9% (NS) 50 mL piggyback 02-19 19:15: 00 02-19 19:03 :00 No 25mg 25 mg, IV Piggyback, ONCE, 1 dose, 02/19/21 at 1415, 50 mL [facility] morpHINE injection 4 mg 02-19 17:15: 00 02-19 17:05 :00 No 4mg 4 mg, Slow IV Push, ONCE, 1 dose, 02/19/21 at 1215, STAT [facility] NaCl 0.9% (NS) bolus infusion 1,000 mL 02-19 17:15: 00 02-19 19:04 :00 No 1000mL at 999 mL/hr, 1,000 mL, IV Infusion, ONCE, 1 dose, 02/19/21 at 1215, STAT [facility] ondansetron (ZOFRAN (PF)) injection 4 mg 02-19 17:00: 00 02-19 15:59 :00 No 4mg 4 mg, Slow IV Push, ONCE, 1 dose, 02/19/21 at 1200, MICHAEL [facility] iopamidol (ISOVUE 370-500 mL) injection 100 mL 02-19 16:35: 00 02-19 16:45 :00 No [id number] 100mL 100 mL, Intravenou s, ONCE, 1 dose, Thu02/19/21 at 1145, Routine [facility] levetiracet am (KEPPRA ORAL) 02-19 14:45: 33 Yes Take by mouth. [facility] levetiracet am (KEPPRA ORAL) 02-19 14:45: 33 Yes Take by mouth. [facility] levetiracet am (KEPPRA ORAL) 02-19 14:45: 33 Yes Take by mouth. [facility] levetiracet am (KEPPRA ORAL) 02-19 14:45: 33 Yes Take by mouth. [facility] levetiracet am (KEPPRA ORAL) 02-19 14:45: 33 Yes Take by mouth. [facility] proMETHazin e 25 mg tablet 02-19 00:00: 00 Yes [id number] 25mg Take 1 tablet by mouth every 6 (six) hours as needed for Nausea and Vomiting (N/V). [facility] dicyclomine 20 mg tablet 02-19 00:00: 00 Yes [id number] 20mg Take 1 tablet by mouth 4 (four) times daily as needed for Abdominal pain. [facility] proMETHazin e 25 mg tablet 02-19 00:00: 00 Yes [id number] 25mg Take 1 tablet by mouth every 6 (six) hours as needed for Nausea and Vomiting (N/V). [facility] dicyclomine 20 mg tablet 02-19 00:00: 00 Yes [id number] 20mg Take 1 tablet by mouth 4 (four) times daily as needed for Abdominal pain. [facility] proMETHazin e 25 mg tablet 02-19 00:00: 00 Yes [id number] 25mg Take 1 tablet by mouth every 6 (six) hours as needed for Nausea and Vomiting (N/V). [facility] dicyclomine 20 mg tablet 0 02-19 00:00: 00 Yes [id number] 20mg Take 1 tablet by mouth 4 (four) times daily as needed for Abdominal pain. [facility] proMETHazin e 25 mg tablet 0 02-19 00:00: 00 Yes [id number] 25mg Take 1 tablet by mouth every 6 (six) hours as needed for Nausea and Vomiting (N/V). [facility] dicyclomine 20 mg tablet 0 02-19 00:00: 00 Yes [id number] 20mg Take 1 tablet by mouth 4 (four) times daily as needed for Abdominal pain. [facility] proMETHazin e 25 mg tablet 02-19 00:00: 00 Yes [id number] 25mg Take 1 tablet by mouth every 6 (six) hours as needed for Nausea and Vomiting (N/V). [facility] dicyclomine 20 mg tablet 0 02-19 00:00: 00 Yes [id number] 20mg Take 1 tablet by mouth 4 (four) times daily as needed for Abdominal pain. [facility] proMETHazin e 25 mg tablet 0 02-19 00:00: 00 Yes [id number] 25mg Take 1 tablet by mouth every 6 (six) hours as needed for Nausea and Vomiting (N/V). [facility] dicyclomine 20 mg tablet 0 02-19 00:00: 00 Yes [id number] 20mg Take 1 tablet by mouth 4 (four) times daily as needed for Abdominal pain. [facility] proMETHazin e 25 mg tablet 0 02-19 00:00: 00 Yes [id number] 25mg Take 1 tablet by mouth every 6 (six) hours as needed for Nausea and Vomiting (N/V). [facility] dicyclomine 20 mg tablet 2020-0 02-19 00:00: 00 Yes [id number] 20mg Take 1 tablet by mouth 4 (four) times daily as needed for Abdominal pain. [facility] proMETHazin e 25 mg tablet 2020-0 8- 00:00: 00 Yes [id number] 25mg Take 1 tablet by mouth every 6 (six) hours as needed for Nausea and Vomiting (N/V). [facility] dicyclomine 20 mg tablet 0 02-19 00:00: 00 Yes [id number] 20mg Take 1 tablet by mouth 4 (four) times daily as needed for Abdominal pain. [facility] proMETHazin e 25 mg tablet 0 02-19 00:00: 00 Yes [id number] 25mg Take 1 tablet by mouth every 6 (six) hours as needed for Nausea and Vomiting (N/V). [facility] dicyclomine 20 mg tablet 02-19 00:00: 00 Yes [id number] 20mg Take 1 tablet by mouth 4 (four) times daily as needed for Abdominal pain. [facility] proMETHazin e 25 mg tablet 02-19 00:00: 00 Yes [id number] 25mg Take 1 tablet by mouth every 6 (six) hours as needed for Nausea and Vomiting (N/V). [facility] dicyclomine 20 mg tablet 02-19 00:00: 00 Yes [id number] 20mg Take 1 tablet by mouth 4 (four) times daily as needed for Abdominal pain. [facility] proMETHazin e 25 mg tablet 02-19 00:00: 00 Yes [id number] 25mg Take 1 tablet by mouth every 6 (six) hours as needed for Nausea and Vomiting (N/V). [facility] dicyclomine 20 mg tablet 0 02-19 00:00: 00 Yes [id number] 20mg Take 1 tablet by mouth 4 (four) times daily as needed for Abdominal pain. [facility] proMETHazin e 25 mg tablet 0 - 00:00: 00 Yes [id number] 25mg Take 1 tablet by mouth every 6 (six) hours as needed for Nausea and Vomiting (N/V). [facility] dicyclomine 20 mg tablet 2020-0 8- 00:00: 00 Yes [id number] 20mg Take 1 tablet by mouth 4 (four) times daily as needed for Abdominal pain. [facility] proMETHazin e 25 mg tablet 02-19 00:00: 00 Yes [id number] 25mg Take 1 tablet by mouth every 6 (six) hours as needed for Nausea and Vomiting (N/V). [facility] dicyclomine 20 mg tablet 02-19 00:00: 00 Yes [id number] 20mg Take 1 tablet by mouth 4 (four) times daily as needed for Abdominal pain. [facility] proMETHazin e 25 mg tablet 02-19 00:00: 00 Yes [id number] 25mg Take 1 tablet by mouth every 6 (six) hours as needed for Nausea and Vomiting (N/V). [facility] dicyclomine 20 mg tablet 02-19 00:00: 00 Yes [id number] 20mg Take 1 tablet by mouth 4 (four) times daily as needed for Abdominal pain. [facility] proMETHazin e 25 mg tablet 02-19 00:00: 00 Yes [id number] 25mg Take 1 tablet by mouth every 6 (six) hours as needed for Nausea and Vomiting (N/V). [facility] dicyclomine 20 mg tablet 02-19 00:00: 00 Yes [id number] 20mg Take 1 tablet by mouth 4 (four) times daily as needed for Abdominal pain. [facility] proMETHazin e 25 mg tablet 02-19 00:00: 00 Yes [id number] 25mg Take 1 tablet by mouth every 6 (six) hours as needed for Nausea and Vomiting (N/V). [facility] dicyclomine 20 mg tablet 0 02-19 00:00: 00 Yes [id number] 20mg Take 1 tablet by mouth 4 (four) times daily as needed for Abdominal pain. [facility] proMETHazin e 25 mg tablet 02-19 00:00: 00 Yes [id number] 25mg Take 1 tablet by mouth every 6 (six) hours as needed for Nausea and Vomiting (N/V). [facility] dicyclomine 20 mg tablet 02-19 00:00: 00 Yes [id number] 20mg Take 1 tablet by mouth 4 (four) times daily as needed for Abdominal pain. [facility] proMETHazin e 25 mg tablet 02-19 00:00: 00 Yes [id number] 25mg Take 1 tablet by mouth every 6 (six) hours as needed for Nausea and Vomiting (N/V). [facility] dicyclomine 20 mg tablet 02-19 00:00: 00 Yes [id number] 20mg Take 1 tablet by mouth 4 (four) times daily as needed for Abdominal pain. [facility] proMETHazin e 25 mg tablet 02-19 00:00: 00 Yes [id number] 25mg Take 1 tablet by mouth every 6 (six) hours as needed for Nausea and Vomiting (N/V). [facility] dicyclomine 20 mg tablet 02-19 00:00: 00 Yes [id number] 20mg Take 1 tablet by mouth 4 (four) times daily as needed for Abdominal pain. [facility] ZONISAMIDE 100 mg capsule 11-15 00:00: 00 Yes TAKE 1 CAPSULE BY MOUTH TWICE A DAY [facility] ZONISAMIDE 100 mg capsule 11-15 00:00: 00 02-19 00:00 :00 No TAKE 1 CAPSULE BY MOUTH TWICE A DAY [facility] ondansetron (ZOFRAN) 4 mg tablet 02-09 20:05: 01 Yes 4mg Take 4 mg by mouth every 8 (eight) hours as needed. [facility] pantoprazol e (PROTONIX) 40 mg EC tablet 02-09 20:05: 01 Yes 40mg Take 40 mg by mouth daily. [facility] ondansetron (ZOFRAN) 4 mg tablet 02-09 20:05: 01 Yes 4mg Take 4 mg by mouth every 8 (eight) hours as needed. [facility] pantoprazol e (PROTONIX) 40 mg EC tablet 02-09 20:05: 01 Yes 40mg Take 40 mg by mouth daily. [facility] LISINOPRIL- HYDROCHLORO THIAZIDE ORAL 02-09 20:05: 01 Yes Take by mouth. [facility] ondansetron (ZOFRAN) 4 mg tablet 02-09 20:05: 01 Yes 4mg Take 4 mg by mouth every 8 (eight) hours as needed. [facility] pantoprazol e (PROTONIX) 40 mg EC tablet 02-09 20:05: 01 Yes 40mg Take 40 mg by mouth daily. [facility] ondansetron (ZOFRAN) 4 mg tablet 02-09 20:05: 01 Yes 4mg Take 4 mg by mouth every 8 (eight) hours as needed. [facility] pantoprazol e (PROTONIX) 40 mg EC tablet 02-09 20:05: 01 Yes 40mg Take 40 mg by mouth daily. [facility] ondansetron (ZOFRAN) 4 mg tablet 02-09 20:05: 01 Yes 4mg Take 4 mg by mouth every 8 (eight) hours as needed. [facility] pantoprazol e (PROTONIX) 40 mg EC tablet 02-09 20:05: 01 Yes 40mg Take 40 mg by mouth daily. [facility] ondansetron (ZOFRAN) 4 mg tablet 02-09 20:05: 01 Yes 4mg Take 4 mg by mouth every 8 (eight) hours as needed. [facility] pantoprazol e (PROTONIX) 40 mg EC tablet 02-09 20:05: 01 Yes 40mg Take 40 mg by mouth daily. [facility] ondansetron (ZOFRAN) 4 mg tablet 02-09 20:05: 01 Yes 4mg Take 4 mg by mouth every 8 (eight) hours as needed. [facility] pantoprazol e (PROTONIX) 40 mg EC tablet 02-09 20:05: 01 Yes 40mg Take 40 mg by mouth daily. [facility] lisinopril- hydrochloro thiazide 20-12.5 mg per tablet 02-09 20:03: 30 Yes 1{tbl} Take 1 tablet by mouth daily. [facility] lisinopril- hydrochloro thiazide 20-12.5 mg per tablet 02-09 20:03: 30 Yes 1{tbl} Take 1 tablet by mouth daily. [facility] lisinopril- hydrochloro thiazide 20-12.5 mg per tablet 02-09 20:03: 30 Yes 1{tbl} Take 1 tablet by mouth daily. [facility] lisinopril- hydrochloro thiazide 20-12.5 mg per tablet 02-09 20:03: 30 Yes 1{tbl} Take 1 tablet by mouth daily. [facility] lisinopril- hydrochloro thiazide 20-12.5 mg per tablet 02-09 20:03: 30 Yes 1{tbl} Take 1 tablet by mouth daily. [facility] lisinopril- hydrochloro thiazide 20-12.5 mg per tablet 02-09 20:03: 30 Yes 1{tbl} Take 1 tablet by mouth daily. [facility] lisinopril- hydrochloro thiazide 20-12.5 mg per tablet 02-09 20:03: 30 Yes 1{tbl} Take 1 tablet by mouth daily. [facility] omega-3 fatty acids-vitam in E (FISH OIL) 1,000 mg capsule 02-09 19:59: 52 Yes 1g Take 1 g by mouth daily. [facility] omega-3 fatty acids-vitam in E (FISH OIL) 1,000 mg capsule 02-09 19:59: 52 Yes 1g Take 1 g by mouth daily. [facility] omega-3 fatty acids-vitam in E (FISH OIL) 1,000 mg capsule 02-09 19:59: 52 Yes 1g Take 1 g by mouth daily. [facility] omega-3 fatty acids-vitam in E (FISH OIL) 1,000 mg capsule 02-09 19:59: 52 Yes 1g Take 1 g by mouth daily. [facility] omega-3 fatty acids-vitam in E (FISH OIL) 1,000 mg capsule 02-09 19:59: 52 Yes 1g Take 1 g by mouth daily. [facility] omega-3 fatty acids-vitam in E (FISH OIL) 1,000 mg capsule 02-09 19:59: 52 Yes 1g Take 1 g by mouth daily. [facility] omega-3 fatty acids-vitam in E (FISH OIL) 1,000 mg capsule 02-09 19:59: 52 Yes 1g Take 1 g by mouth daily. [facility] 19:58: 14 Yes 1{tbl} Take 1 Tab by mouth daily. [facility] loratadine (CLARITIN LIQUI-GEL) 10 mg capsule 02-09 19:58: 14 Yes Take by mouth daily. [facility] MULTIVITAMI N ORAL 02-09 19:58: 14 Yes 1{tbl} Take 1 Tab by mouth daily. [facility] loratadine (CLARITIN LIQUI-GEL) 10 mg capsule 02-09 19:58: 14 Yes Take by mouth daily. [facility] MULTIVITAMI N ORAL 02-09 19:58: 14 Yes 1{tbl} Take 1 Tab by mouth daily. [facility] loratadine (CLARITIN LIQUI-GEL) 10 mg capsule 02-09 19:58: 14 Yes Take by mouth daily. [facility] MULTIVITAMI N ORAL 02-09 19:58: 14 Yes 1{tbl} Take 1 Tab by mouth daily. [facility] loratadine (CLARITIN LIQUI-GEL) 10 mg capsule 02-09 19:58: 14 Yes Take by mouth daily. [facility] 02-09 19:58: 14 Yes 1{tbl} Take 1 Tab by mouth daily. [facility] loratadine (CLARITIN LIQUI-GEL) 10 mg capsule 02-09 19:58: 14 Yes Take by mouth daily. [facility] MULTIVITAMI N ORAL 02-09 19:58: 14 Yes 1{tbl} Take 1 Tab by mouth daily. [facility] loratadine (CLARITIN LIQUI-GEL) 10 mg capsule 02-09 19:58: 14 Yes Take by mouth daily. [facility] MULTIVITAMI N ORAL 02-09 19:58: 14 Yes 1{tbl} Take 1 Tab by mouth daily. [facility] loratadine (CLARITIN LIQUI-GEL) 10 mg capsule 02-09 19:58: 14 Yes Take by mouth daily. [facility] ondansetron (ZOFRAN) 4 mg tablet 02-09 15:05: 01 Yes 4mg Take 4 mg by mouth every 8 (eight) hours as needed. [facility] pantoprazol e (PROTONIX) 40 mg EC tablet 02-09 15:05: 01 Yes 40mg Take 40 mg by mouth daily. [facility] ondansetron (ZOFRAN) 4 mg tablet 02-09 15:05: 01 Yes 4mg Take 4 mg by mouth every 8 (eight) hours as needed. [facility] pantoprazol e (PROTONIX) 40 mg EC tablet 02-09 15:05: 01 Yes 40mg Take 40 mg by mouth daily. [facility] ondansetron (ZOFRAN) 4 mg tablet 02-09 15:05: 01 Yes 4mg Take 4 mg by mouth every 8 (eight) hours as needed. [facility] pantoprazol e (PROTONIX) 40 mg EC tablet 02-09 15:05: 01 Yes 40mg Take 40 mg by mouth daily. [facility] ondansetron (ZOFRAN) 4 mg tablet 02-09 15:05: 01 Yes 4mg Take 4 mg by mouth every 8 (eight) hours as needed. [facility] pantoprazol e (PROTONIX) 40 mg EC tablet 02-09 15:05: 01 Yes 40mg Take 40 mg by mouth daily. [facility] ondansetron (ZOFRAN) 4 mg tablet 02-09 15:05: 01 Yes 4mg Take 4 mg by mouth every 8 (eight) hours as needed. [facility] pantoprazol e (PROTONIX) 40 mg EC tablet 02-09 15:05: 01 Yes 40mg Take 40 mg by mouth daily. [facility] lisinopril- hydrochloro thiazide 20-12.5 mg per tablet 02-09 15:03: 30 Yes 1{tbl} Take 1 tablet by mouth daily. [facility] lisinopril- hydrochloro thiazide 20-12.5 mg per tablet 02-09 15:03: 30 Yes 1{tbl} Take 1 tablet by mouth daily. [facility] lisinopril- hydrochloro thiazide 20-12.5 mg per tablet 02-09 15:03: 30 Yes 1{tbl} Take 1 tablet by mouth daily. [facility] lisinopril- hydrochloro thiazide 20-12.5 mg per tablet 02-09 15:03: 30 Yes 1{tbl} Take 1 tablet by mouth daily. [facility] lisinopril- hydrochloro thiazide 20-12.5 mg per tablet 02-09 15:03: 30 Yes 1{tbl} Take 1 tablet by mouth daily. [facility] omega-3 fatty acids-vitam in E (FISH OIL) 1,000 mg capsule 02-09 14:59: 52 Yes 1g Take 1 g by mouth daily. [facility] omega-3 fatty acids-vitam in E (FISH OIL) 1,000 mg capsule 02-09 14:59: 52 Yes 1g Take 1 g by mouth daily. [facility] omega-3 fatty acids-vitam in E (FISH OIL) 1,000 mg capsule 02-09 14:59: 52 Yes 1g Take 1 g by mouth daily. [facility] omega-3 fatty acids-vitam in E (FISH OIL) 1,000 mg capsule 02-09 14:59: 52 Yes 1g Take 1 g by mouth daily. [facility] omega-3 fatty acids-vitam in E (FISH OIL) 1,000 mg capsule 02-09 14:59: 52 Yes 1g Take 1 g by mouth daily. [facility] MULTIVITAMI N ORAL 02-09 14:58: 14 Yes 1{tbl} Take 1 Tab by mouth daily. [facility] loratadine (CLARITIN LIQUI-GEL) 10 mg capsule 02-09 14:58: 14 Yes Take by mouth daily. [facility] MULTIVITAMI N ORAL 02-09 14:58: 14 Yes 1{tbl} Take 1 Tab by mouth daily. [facility] loratadine (CLARITIN LIQUI-GEL) 10 mg capsule 02-09 14:58: 14 Yes Take by mouth daily. [facility] MULTIVITAMI N ORAL 02-09 14:58: 14 Yes 1{tbl} Take 1 Tab by mouth daily. [facility] loratadine (CLARITIN LIQUI-GEL) 10 mg capsule 02-09 14:58: 14 Yes Take by mouth daily. [facility] MULTIVITAMI N ORAL 02-09 14:58: 14 Yes 1{tbl} Take 1 Tab by mouth daily. [facility] loratadine (CLARITIN LIQUI-GEL) 10 mg capsule 02-09 14:58: 14 Yes Take by mouth daily. [facility] MULTIVITAMI N ORAL 02-09 14:58: 14 Yes 1{tbl} Take 1 Tab by mouth daily. [facility] loratadine (CLARITIN LIQUI-GEL) 10 mg capsule 02-09 14:58: 14 Yes Take by mouth daily. [facility] proMETHazin e (PHENERGAN) 25 mg tablet 11-20 00:00: 00 Yes 25mg Take 1 tablet by mouth every 6 (six) hours as needed for Nausea and Vomiting (N/V). [facility] proMETHazin e (PHENERGAN) 25 mg tablet 11-20 00:00: 00 2021- 08-03 00:00 :00 No 25mg Take 1 tablet by mouth every 6 (six) hours as needed for Nausea and Vomiting (N/V). [facility] carvedilol (COREG) 6.25 mg tablet 09-19 00:00: 00 Yes 6.25mg Take 1 Tab by mouth 2 (two) times daily with meals. [facility] amLODIPine (NORVASC) 10 mg tablet 09-19 00:00: 00 Yes 10mg Take 1 Tab by mouth daily. [facility] lisinopril (PRINIVIL,Z ESTRIL) 40 mg tablet 09-19 00:00: 00 Yes 40mg Take 1 Tab by mouth daily. [facility] carvedilol (COREG) 6.25 mg tablet 09-19 00:00: 00 Yes 6.25mg Take 1 Tab by mouth 2 (two) times daily with meals. [facility] amLODIPine (NORVASC) 10 mg tablet 09-19 00:00: 00 Yes 10mg Take 1 Tab by mouth daily. [facility] lisinopril (PRINIVIL,Z ESTRIL) 40 mg tablet 09-19 00:00: 00 Yes 40mg Take 1 Tab by mouth daily. [facility] carvedilol (COREG) 6.25 mg tablet 09-19 00:00: 00 Yes 6.25mg Take 1 Tab by mouth 2 (two) times daily with meals. [facility] amLODIPine (NORVASC) 10 mg tablet 09-19 00:00: 00 Yes 10mg Take 1 Tab by mouth daily. [facility] lisinopril (PRINIVIL,Z ESTRIL) 40 mg tablet 09-19 00:00: 00 Yes 40mg Take 1 Tab by mouth daily. [facility] carvedilol (COREG) 6.25 mg tablet 09-19 00:00: 00 Yes 6.25mg Take 1 Tab by mouth 2 (two) times daily with meals. [facility] amLODIPine (NORVASC) 10 mg tablet 09-19 00:00: 00 Yes 10mg Take 1 Tab by mouth daily. [facility] lisinopril (PRINIVIL,Z ESTRIL) 40 mg tablet 09-19 00:00: 00 Yes 40mg Take 1 Tab by mouth daily. [facility] carvedilol (COREG) 6.25 mg tablet 09-19 00:00: 00 Yes 6.25mg Take 1 Tab by mouth 2 (two) times daily with meals. [facility] amLODIPine (NORVASC) 10 mg tablet 09-19 00:00: 00 Yes 10mg Take 1 Tab by mouth daily. [facility] lisinopril (PRINIVIL,Z ESTRIL) 40 mg tablet 09-19 00:00: 00 Yes 40mg Take 1 Tab by mouth daily. [facility] carvedilol (COREG) 6.25 mg tablet 09-19 00:00: 00 Yes 6.25mg Take 1 Tab by mouth 2 (two) times daily with meals. [facility] amLODIPine (NORVASC) 10 mg tablet 09-19 00:00: 00 Yes 10mg Take 1 Tab by mouth daily. [facility] lisinopril (PRINIVIL,Z ESTRIL) 40 mg tablet 09-19 00:00: 00 Yes 40mg Take 1 Tab by mouth daily. [facility] carvedilol (COREG) 6.25 mg tablet 09-19 00:00: 00 Yes 6.25mg Take 1 Tab by mouth 2 (two) times daily with meals. [facility] amLODIPine (NORVASC) 10 mg tablet 09-19 00:00: 00 Yes 10mg Take 1 Tab by mouth daily. [facility] lisinopril (PRINIVIL,Z ESTRIL) 40 mg tablet 09-19 00:00: 00 Yes 40mg Take 1 Tab by mouth daily. [facility] carvedilol (COREG) 6.25 mg tablet 09-19 00:00: 00 Yes 6.25mg Take 1 Tab by mouth 2 (two) times daily with meals. [facility] amLODIPine (NORVASC) 10 mg tablet 09-19 00:00: 00 Yes 10mg Take 1 Tab by mouth daily. [facility] lisinopril (PRINIVIL,Z ESTRIL) 40 mg tablet 09-19 00:00: 00 Yes 40mg Take 1 Tab by mouth daily. [facility] carvedilol (COREG) 6.25 mg tablet 09-19 00:00: 00 Yes 6.25mg Take 1 Tab by mouth 2 (two) times daily with meals. [facility] amLODIPine (NORVASC) 10 mg tablet 09-19 00:00: 00 Yes 10mg Take 1 Tab by mouth daily. [facility] lisinopril (PRINIVIL,Z ESTRIL) 40 mg tablet 09-19 00:00: 00 Yes 40mg Take 1 Tab by mouth daily. [facility] carvedilol (COREG) 6.25 mg tablet 09-19 00:00: 00 Yes 6.25mg Take 1 Tab by mouth 2 (two) times daily with meals. [facility] amLODIPine (NORVASC) 10 mg tablet 09-19 00:00: 00 Yes 10mg Take 1 Tab by mouth daily. [facility] lisinopril (PRINIVIL,Z ESTRIL) 40 mg tablet 09-19 00:00: 00 Yes 40mg Take 1 Tab by mouth daily. [facility] carvedilol (COREG) 6.25 mg tablet 09-19 00:00: 00 Yes 6.25mg Take 1 Tab by mouth 2 (two) times daily with meals. [facility] amLODIPine (NORVASC) 10 mg tablet 09-19 00:00: 00 Yes 10mg Take 1 Tab by mouth daily. [facility] lisinopril (PRINIVIL,Z ESTRIL) 40 mg tablet 09-19 00:00: 00 Yes 40mg Take 1 Tab by mouth daily. [facility] carvedilol (COREG) 6.25 mg tablet 09-19 00:00: 00 Yes 6.25mg Take 1 Tab by mouth 2 (two) times daily with meals. [facility] amLODIPine (NORVASC) 10 mg tablet 09-19 00:00: 00 Yes 10mg Take 1 Tab by mouth daily. [facility] lisinopril (PRINIVIL,Z ESTRIL) 40 mg tablet 09-19 00:00: 00 Yes 40mg Take 1 Tab by mouth daily. [facility] carvedilol (COREG) 6.25 mg tablet 09-19 00:00: 00 Yes 6.25mg Take 1 Tab by mouth 2 (two) times daily with meals. [facility] amLODIPine (NORVASC) 10 mg tablet 09-19 00:00: 00 Yes 10mg Take 1 Tab by mouth daily. [facility] lisinopril (PRINIVIL,Z ESTRIL) 40 mg tablet 09-19 00:00: 00 Yes 40mg Take 1 Tab by mouth daily. [facility] carvedilol (COREG) 6.25 mg tablet 09-19 00:00: 00 Yes 6.25mg Take 1 Tab by mouth 2 (two) times daily with meals. [facility] amLODIPine (NORVASC) 10 mg tablet 09-19 00:00: 00 Yes 10mg Take 1 Tab by mouth daily. [facility] lisinopril (PRINIVIL,Z ESTRIL) 40 mg tablet 09-19 00:00: 00 Yes 40mg Take 1 Tab by mouth daily. [facility] carvedilol (COREG) 6.25 mg tablet 09-19 00:00: 00 Yes 6.25mg Take 1 Tab by mouth 2 (two) times daily with meals. [facility] amLODIPine (NORVASC) 10 mg tablet 09-19 00:00: 00 Yes 10mg Take 1 Tab by mouth daily. [facility] lisinopril (PRINIVIL,Z ESTRIL) 40 mg tablet 09-19 00:00: 00 Yes 40mg Take 1 Tab by mouth daily. [facility] carvedilol (COREG) 6.25 mg tablet 09-19 00:00: 00 Yes 6.25mg Take 1 Tab by mouth 2 (two) times daily with meals. [facility] amLODIPine (NORVASC) 10 mg tablet 09-19 00:00: 00 Yes 10mg Take 1 Tab by mouth daily. [facility] lisinopril (PRINIVIL,Z ESTRIL) 40 mg tablet 09-19 00:00: 00 Yes 40mg Take 1 Tab by mouth daily. [facility] carvedilol (COREG) 6.25 mg tablet 09-19 00:00: 00 Yes 6.25mg Take 1 Tab by mouth 2 (two) times daily with meals. [facility] amLODIPine (NORVASC) 10 mg tablet 09-19 00:00: 00 Yes 10mg Take 1 Tab by mouth daily. [facility] lisinopril (PRINIVIL,Z ESTRIL) 40 mg tablet 09-19 00:00: 00 Yes 40mg Take 1 Tab by mouth daily. [facility] carvedilol (COREG) 6.25 mg tablet 09-19 00:00: 00 Yes 6.25mg Take 1 Tab by mouth 2 (two) times daily with meals. [facility] amLODIPine (NORVASC) 10 mg tablet 09-19 00:00: 00 Yes 10mg Take 1 Tab by mouth daily. [facility] lisinopril (PRINIVIL,Z ESTRIL) 40 mg tablet 09-19 00:00: 00 Yes 40mg Take 1 Tab by mouth daily. [facility] carvedilol (COREG) 6.25 mg tablet 09-19 00:00: 00 Yes 6.25mg Take 1 Tab by mouth 2 (two) times daily with meals. [facility] amLODIPine (NORVASC) 10 mg tablet 09-19 00:00: 00 Yes 10mg Take 1 Tab by mouth daily. [facility] lisinopril (PRINIVIL,Z ESTRIL) 40 mg tablet 09-19 00:00: 00 Yes 40mg Take 1 Tab by mouth daily. [facility] carvedilol (COREG) 6.25 mg tablet 09-19 00:00: 00 Yes 6.25mg Take 1 Tab by mouth 2 (two) times daily with meals. [facility] amLODIPine (NORVASC) 10 mg tablet 09-19 00:00: 00 Yes 10mg Take 1 Tab by mouth daily. [facility] lisinopril (PRINIVIL,Z ESTRIL) 40 mg tablet 09-19 00:00: 00 Yes 40mg Take 1 Tab by mouth daily. [facility] Vital Signs Vital Name Observation [...] Systolic blood pressure 2022-12-11 20:00:00 142 mm[Hg] [facility] Diastolic blood pressure 2022-12-11 20:00:00 90 mm[Hg] [facility] Respiratory rate 2022-12-11 20:00:00 24 /min [facility] Heart rate 2022-12-11 18:00:00 101 /min [facility] Oxygen saturation in Arterial blood by Pulse oximetry 2022-12-11 18:00:00 93 /min [facility] BMI 2022-12-11 13:55:00 35.43 kg/m2 [facility] Body temperature 2022-12-11 13:55:00 37.22 Radha [facility] Body weight 2022-12-11 13:55:00 90.719 kg [facility] Systolic blood pressure 2022-11-18 05:34:00 152 mm[Hg] [facility] Diastolic blood pressure 2022-11-18 05:34:00 98 mm[Hg] [facility] Heart rate 2022-11-18 05:34:00 88 /min [facility] Respiratory rate 2022-11-18 05:34:00 18 /min [facility] Oxygen saturation in Arterial blood by Pulse oximetry 2022-11-18 05:34:00 97 /min [facility] Body temperature 2022-11-17 22:28:00 37.06 Radha [facility] Body height 2022-11-17 22:28:00 160 cm [facility] Body weight 2022-11-17 22:28:00 99.791 kg [facility] BMI 2022-11-17 22:28:00 38.97 kg/m2 [facility] Heart rate 2022-08-02 02:02:00 108 /min [facility] Respiratory rate 2022-08-02 02:02:00 28 /min [facility] Oxygen saturation in Arterial blood by Pulse oximetry 2022-08-02 02:02:00 97 /min [facility] Body temperature 2022-08-02 01:00:00 36.44 Radha [facility] Systolic blood pressure 2022-08-01 23:29:00 145 mm[Hg] [facility] Diastolic blood pressure 2022-08-01 23:29:00 103 mm[Hg] [facility] Body weight 2022-08-01 09:16:00 97.977 kg [facility] BMI 2022-08-01 09:16:00 38.26 kg/m2 [facility] Body height 2022-07-31 21:54:00 160 cm [facility] Systolic blood pressure 2022-05-08 16:40:00 146 mm[Hg] [facility] Diastolic blood pressure 2022-05-08 16:40:00 96 mm[Hg] [facility] Heart rate 2022-05-08 16:40:00 112 [facility] Body temperature 2022-05-08 16:40:00 36.78 Radha [facility] Respiratory rate 2022-05-08 16:40:00 18 /min [facility] Oxygen saturation in Arterial blood by Pulse oximetry 2022-05-08 16:40:00 94 /min [facility] Body height 2022-05-05 23:44:00 160 cm [facility] Body weight 2022-05-05 23:37:00 81.647 kg [facility] BMI 2022-05-05 23:37:00 31.89 kg/m2 [facility] Systolic blood pressure 2022-04-15 18:52:00 104 mm[Hg] [facility] Diastolic blood pressure 2022-04-15 18:52:00 82 mm[Hg] [facility] Heart rate 2022-04-15 18:52:00 114 /min [facility] Oxygen saturation in Arterial blood by Pulse oximetry 2022-04-15 18:52:00 98 /min [facility] Body temperature 2022-04-15 16:14:00 36.28 Radha [facility] Respiratory rate 2022-04-15 16:14:00 17 /min [facility] Body height 2022-04-13 21:08:00 160 cm [facility] Body weight 2022-04-13 21:08:00 91.173 kg [facility] BMI 2022-04-13 21:08:00 35.61 kg/m2 [facility] Systolic blood pressure 2021-11-23 21:30:00 132 mm[Hg] [facility] Diastolic blood pressure 2021-11-23 21:30:00 76 mm[Hg] [facility] Heart rate 2021-11-23 21:30:00 95 /min [facility] Respiratory rate 2021-11-23 21:30:00 13 /min [facility] Oxygen saturation in Arterial blood by Pulse oximetry 2021-11-23 21:30:00 97 /min [facility] Body temperature 2021-11-23 20:15:00 37.56 Radha [facility] Systolic blood pressure 2021-03-17 03:00:00 117 mm[Hg] [facility] Diastolic blood pressure 2021-03-17 03:00:00 76 mm[Hg] [facility] Heart rate 2021-03-17 03:00:00 104 /min [facility] Respiratory rate 2021-03-17 03:00:00 28 /min [facility] Oxygen saturation in Arterial blood by Pulse oximetry 2021-03-17 03:00:00 96 /min [facility] Body temperature 2021-03-17 00:39:00 37.11 Radha [facility] Body height 2021-03-17 00:39:00 160 cm [facility] Body weight 2021-03-17 00:39:00 58.968 kg [facility] BMI 2021-03-17 00:39:00 23.03 kg/m2 [facility] Systolic blood pressure 2021-03-15 00:14:00 149 mm[Hg] [facility] Diastolic blood pressure 2021-03-15 00:14:00 78 mm[Hg] [facility] Heart rate 2021-03-15 00:14:00 100 /min [facility] Body temperature 2021-03-15 00:14:00 37.33 Radha [facility] Respiratory rate 2021-03-15 00:14:00 24 /min [facility] Body height 2021-03-15 00:14:00 160 cm [facility] Body weight 2021-03-15 00:14:00 58.968 kg [facility] BMI 2021-03-15 00:14:00 23.03 kg/m2 [facility] Oxygen saturation in Arterial blood by Pulse oximetry 2021-03-15 00:14:00 98 /min [facility] Systolic blood pressure 2021-02-19 18:00:00 131 mm[Hg] [facility] Diastolic blood pressure 2021-02-19 18:00:00 80 mm[Hg] [facility] Heart rate 2021-02-19 18:00:00 83 /min [facility] Respiratory rate 2021-02-19 18:00:00 18 /min [facility] Oxygen saturation in Arterial blood by Pulse oximetry 2021-02-19 18:00:00 100 /min [facility] Body temperature 2021-02-19 15:47:00 37 Radha [facility] Body height 2021-02-19 15:47:00 160 cm [facility] Body weight 2021-02-19 15:47:00 58.968 kg [facility] BMI 2021-02-19 15:47:00 23.03 kg/m2 [facility] Heart rate 2023-06-16 17:00:00 108 /min [facility] Systolic blood pressure 2023-06-16 15:31:00 101 mm[Hg] [facility] Diastolic blood pressure 2023-06-16 15:31:00 81 mm[Hg] [facility] Body temperature 2023-06-16 15:31:00 36.61 Radha [facility] Respiratory rate 2023-06-16 15:31:00 18 /min [facility] Oxygen saturation in Arterial blood by Pulse oximetry 2023-06-16 15:31:00 94 /min [facility] Body weight 2023-06-16 05:26:00 86.047 kg [facility] BMI 2023-06-16 05:26:00 33.60 kg/m2 [facility] Body height 2023-06-13 04:00:00 160 cm [facility] Systolic blood pressure 2023-06-04 13:02:00 93 mm[Hg] [facility] Diastolic blood pressure 2023-06-04 13:02:00 57 mm[Hg] [facility] Heart rate 2023-06-04 13:02:00 101 /min [facility] Respiratory rate 2023-06-04 13:02:00 22 /min [facility] Oxygen saturation in Arterial blood by Pulse oximetry 2023-06-04 13:02:00 95 /min room air [facility] Body temperature 2023-06-04 11:46:00 35.28 Radha [facility] Systolic blood pressure 2023-05-28 16:00:00 154 mm[Hg] [facility] Diastolic blood pressure 2023-05-28 16:00:00 82 mm[Hg] [facility] Heart rate 2023-05-28 16:00:00 89 /min [facility] Body temperature 2023-05-28 16:00:00 36.67 Radha [facility] Respiratory rate 2023-05-28 16:00:00 16 /min [facility] Oxygen saturation in Arterial blood by Pulse oximetry 2023-05-28 16:00:00 97 /min [facility] Body height 2023-05-28 07:00:00 157.5 cm [facility] Body weight 2023-05-28 07:00:00 87.544 kg [facility] BMI 2023-05-28 07:00:00 35.30 kg/m2 [facility] Body height 2023-05-26 09:12:00 157.5 cm [facility] Body weight 2023-05-26 09:12:00 87.091 kg [facility] BMI 2023-05-26 09:12:00 35.12 kg/m2 [facility] Respiratory rate 2023-04-02 16:35:00 18 /min [facility] Oxygen saturation in Arterial blood by Pulse oximetry 2023-04-02 16:35:00 98 /min [facility] Systolic blood pressure 2023-04-02 12:00:00 147 mm[Hg] [facility] Diastolic blood pressure 2023-04-02 12:00:00 97 mm[Hg] [facility] Heart rate 2023-04-02 12:00:00 106 /min [facility] Body temperature 2023-04-02 12:00:00 36.28 Radha [facility] Body height 2023-03-30 02:14:00 157.5 cm [facility] Body weight 2023-03-30 02:14:00 92.08 kg [facility] BMI 2023-03-30 02:14:00 37.13 kg/m2 [facility] Respiratory rate 2022-08-03 14:40:00 18 /min [facility] Systolic blood pressure 2022-08-03 12:13:00 112 mm[Hg] [facility] Diastolic blood pressure 2022-08-03 12:13:00 77 mm[Hg] [facility] Heart rate 2022-08-03 12:13:00 115 /min [facility] Oxygen saturation in Arterial blood by Pulse oximetry 2022-08-03 12:13:00 93 /min [facility] Body temperature 2022-08-03 12:00:00 36.83 Radha [facility] Body height 2022-08-02 21:52:00 160.2 cm [facility] Body weight 2022-08-02 21:52:00 95 kg [facility] BMI 2022-08-02 21:52:00 37.02 kg/m2 [facility] BP Systolic 2022-07-24 13:31:00 136 [...] Performing Clinician Source TRANSESOPHAGEAL ECHO 2023-06-16 11:05:00 [facility] T SPOT TB 2023-06-15 04:51:00 Rossy [facility] FUNGITELL R B-D-GLUCAN WITH REFLEX TO TITER 2023-06-15 04:51:00 Rossy [facility] ASPERGILLUS GALACTOMANNAN ANTIGEN 2023-06-15 04:51:00 [facility] VANCOMYCIN LEVEL, TROUGH 2023-06-15 04:51:00 Kaylene Mendosa [facility] T-SPOT(R).TB (QUEST) 2023-06-15 04:27:00 System, Provider Not In [facility] ECHO W CONTRAST & DOPPLER 2023-06-14 09:22:00 [facility] HEMOGLOBIN A1C 2023-06-14 04:08:00 Cara Burgess [facility] CBC (HEMOGRAM ONLY) 2023-06-14 04:08:00 [facility] BASIC METABOLIC PANEL 2023-06-14 04:08:00 [facility] CRYPTOCOCCAL ANTIGEN 2023-06-13 17:21:00 Rossy [facility] HC LAB HIV-1 AG W/HIV-1&2 AB 2023-06-13 17:21:00 Rossy, [facility] VENOUS DOPPLER ARM, LEFT 2023-06-13 17:20:00 Cara Burgess [facility] LEGIONELLA ANTIGEN, URINE 2023-06-13 17:00:00 [facility] SPUTUM CULTURE + GRAM STAIN 2023-06-13 14:33:00 [facility] MR LUMBAR SPINE WITH & WITHOUT IV CONTRAST 2023-06-13 13:03:47 Burt Nelson [facility] ECG 12-LEAD 2023-06-13 11:47:02 [facility] ECG 12-LEAD 2023-06-13 11:47:02 Unknown, Hl7 Doctor [facility] MRSA SCREEN 2023-06-13 09:19:00 [facility] CBC W/PLT COUNT & AUTO DIFFERENTIAL 2023-06-13 06:03:00 Cara Burgess [facility] COMPREHENSIVE METABOLIC PANEL 2023-06-13 06:03:00 DodieCara richardson [facility] PROTHROMBIN TIME/INR 2023-06-13 [facility] CREATINE KINASE (CK) 2023-06-13 06:03:00 [facility] CBC W/PLT COUNT & AUTO DIFFERENTIAL 2023-06-13 06:03:00 DodieCara richardson [facility] BLOOD CULTURE 2023-06-13 06:02:00 Cara Burgess [facility] CBC W/PLT COUNT & AUTO DIFFERENTIAL 2023-06-02 04:41:00 Sunil Chu [facility] BASIC METABOLIC PANEL 2023-06-02 04:41:00 Sunil Chu [facility] MAGNESIUM 2023-06-02 04:41:00 Sunil Chu [facility] PHOSPHORUS 2023-06-02 04:41[facility] & AUTO DIFFERENTIAL 2023-06-02 04:41:00 Sunil Chu [facility] XR SPINE LUMBAR 1 VIEW 2023-06-01 10:31:00 Adam Garcia [facility] XR SPINE LUMBAR 1 VIEW 2023-06-01 09:46:00 Adam Garcia [facility] LAMINECTOMY, SPINE, LUMBAR 2023-06-01 09:10:00 Adam Garcia [facility] PROCEDURE W/ C-ARM 2023-06-01 09:10:00 Adam Garcia [facility] LAMINECTOMY, SPINE, LUMBAR 2023-06-01 07:30:00 Jose Adam [facility] PROCEDURE W/ C-ARM 2023-06-01 07:30:00 Adam Garcia [facility] SCREEN, URINE 2023-06-01 04:33:00 Adam Garcia [facility] BASIC METABOLIC PANEL 2023-05-31 22:55:00 [facility] CBC W/PLT COUNT & AUTO DIFFERENTIAL 2023-05-31 22:55:00 Patricia [facility] PT/APTT 2023-05-31 22:55:00 Patricia [facility] CBC W/PLT COUNT & AUTO DIFFERENTIAL 2023-05-31 22:55:00 Patricia [facility] CT NECK SOFT TISSUE WITHOUT IV CONTRAST 2023-05-31 09:39:[facility] TYPE AND SCREEN, AUTOMATED 2023-05-31 09:13:00 [facility] BASIC METABOLIC PANEL 2023-05-29 06:43:00 [facility] CBC W/PLT COUNT & AUTO DIFFERENTIAL 2023-05-29 06:43:00 [facility] CBC W/PLT COUNT & AUTO DIFFERENTIAL 2023-05-29 06:43:00 [facility] XR SPINE CERVICAL 2 OR 3 VIEWS 2023-05-28 18:57:00 [facility] FL FLUORO NON-SPECIFIC UP TO 1 HOUR 2023-05-28 10:48:00 Adam Garcia [facility] FL FLUORO NON-SPECIFIC UP TO 1 HOUR 2023-05-28 10:07:00 Adam Garcia [facility] DISCECTOMY, SPINE, CERVICAL, ANTERIOR APPROACH, WITH FUSION 2023-05-28 08:15:00 Adam Garcia [facility] INSERTION, HARDWARE, SPINAL 2023-05-28 08:15:00 Adam Garcia [facility] PROCEDURE, ALLOGRAFT, FOR SPINE SURGERY 2023-05-28 08:15:00 Jose Adam [facility] AUTOGRAFT FOR SPINE SURGERY 2023-05-28 08:15:00 Jose [facility] PROCEDURE W/ C-ARM 2023-05-28 08:15:00 Jose Adam [facility] NEUROPHYSIOLOGIC MONITORING, INTRAOPERATIVE 2023-05-28 08:15:00 Jose Adam [facility] PROCEDURE, USING OPERATING MICROSCOPE 2023-05-28 08:15:00 Jose [facility] HCG, QUANTITATIVE, 2023-05-28 07:42:00 Yue Bui [facility] TYPE AND SCREEN, AUTOMATED 2023-05-28 07:42:00 Quin Scruggs [facility] XR CHEST 1 VIEW PORTABLE / BEDSIDE 2023-04-01 15:32:16 [facility] B-TYPE NATRIURETIC FACTOR (BNP) 2023-04-01 13:32:00 [facility] ECHO W CONTRAST & DOPPLER 2023-03-31 20:18:37 Jasen [facility] MR CERVICAL SPINE WITHOUT IV CONTRAST 2023-03-31 09:25:00 Selin Lewis [facility] CBC (HEMOGRAM ONLY) 2023-03-31 03:45:00 Jasen [facility] COMPREHENSIVE METABOLIC PANEL 2023-03-31 03:45:00 Jasen [facility] ARTERIAL DOPPLER LEGS BILATERAL 2023-03-30 15:45:00 Jasen [facility] ARTERIAL (ALEISHA'S W/ DOPPLER) ONLY 2023-03-30 15:44:00 Jasen [facility] ECG 12-LEAD 2023-03-30 13:06:22 Jasen [facility] ECG 12-LEAD 2023-03-30 13:06:22 Unknown, Hl7 [facility] MR THORACIC SPINE WITHOUT IV CONTRAST 2023-03-30 12:29:58 [facility] MR LUMBAR SPINE WITHOUT IV CONTRAST 2023-03-30 11:58:00 Eric [facility] EEG AWAKE AND DROWSY 2023-03-30 09:57:53 Berry [facility] VALPROIC ACID LEVEL, TOTAL 2023-03-30 09:06:00 [facility]FLEX URINE CULTURE 2023-03-30 03:54:00 Eric, [facility] CBC (HEMOGRAM ONLY) 2023-03-30 03:52:00 Jasen [facility] COMPREHENSIVE METABOLIC PANEL 2023-03-30 03:52:00 [facility] HEMOGLOBIN A1C 2023-03-30 03:52:00 [facility] PT/APTT 2023-03-30 03:52:00 Thomas Lozoya [facility] EKG-SCANNED 2023-03-29 00:00:00 Provider, Default Scanning [facility] CT HEAD WO CONTRAST 2022-12-11 18:36:49 Alfonso Alvarado [facility] URINE DRUG (IMMUNOASSAY) - COMPREHENSIVE DRUG SCREEN 2022-12-11 17:13:00 Alfonso Alvarado [facility] URINALYSIS 2022-12-11 17:13:00 Alfonso Alvarado [facility] CT CHEST PULMONARY ANGIOGRAM 2022-12-11 16:26:39 Alfonso Alvarado [facility] MAGNESIUM 2022-12-11 14:57:00 Alfonso Alvarado [facility] COMP. METABOLIC PANEL ([id number]) 2022-12-11 14:57:00 Alfonso Alvarado [facility] D-DIMER 2022-12-11 14:15:00 Alfonso Alvarado [facility] XR CHEST 1 VW 2022-12-11 14:10:26 Alfonso Alvarado [facility] TROPONIN I 2022-12-11 14:02:00 Alfonso Alvarado [facility] CBC WITH DIFF 2022-12-11 14:02:00 Alfonso Alvarado [facility] N-TERMINAL PRO-BNP 2022-12-11 14:02:00 Alfonso Alvarado [facility] HB ECG ROUTINE & RHYTHM STRIP 2022-12-11 14:01:08 Alfonso Alvarado [facility] CONSENT/REFUSAL FOR DIAGNOSI S AND TREATMENT 2022-12-11 13:52:01 Doctor Unassigned, [place] [facility] ECG 12-LEAD 2022-08-03 05:03:32 Unknown, Hl7 [facility] ECG 12-LEAD 2022-08-03 05:03:32 Unknown, Hl7 [facility] LIPID PANEL 2022-08-02 [facility] INDICATED 2022-08-02 21:14:00 [facility] VITAMIN B12 2022-08-02 21:14:00 [facility] HEMOGLOBIN A1C 2022-08-02 21:14:00 [facility] COMPREHENSIVE METABOLIC PANEL 2022-08-02 21:14:00 [facility] CBC W/PLT COUNT & AUTO DIFFERENTIAL 2022-08-02 21:14:00 [facility] RPR 2022-08-02 21:14:00 [facility] HC LAB HIV-1 AG W/HIV-1&2 AB 2022-08-02 21:14:00 [facility] C-REACTIVE PROTEIN 2022-08-02 21:14:00 [facility] CBC W/PLT COUNT & AUTO DIFFERENTIAL 2022-08-02 21:14:00 [facility] EKG-SCANNED 2022-08-02 00:00:00 Provider, Default Scanning [facility] CT HEAD WO CONTRAST 2022-08-01 23:52:15 [facility] GALV ONLY - INFLUENZA A B RS V PCR 2022-08-01 18:28:00 Letitia Chambers [facility] TRANSTHORACIC ECHO (TTE) COMPLETE W/ CONTRAST 2022-08-01 14:42:00 [facility]22-08-01 10:42:00 [facility] BASIC MET[facility]OLIC PANEL (NA, K , CL, CO2, GLUCOSE, BUN, CREATININE, CA) 2022-08-01 10:42:00 [facility] CBC WITH DIFF 2022-08-01 10:42:00 [facility] N-TERMINAL PRO-BNP 2022-08-01 10:42:00 Tc [facility] POCT GLUCOSE (AUTOMATED) 2022-08-01 06:56:00 [facility] CRITICAL CARE 2022-07-31 22:31:36 Alcon [facility] URINALYSIS 2022-07-31 20:52:00 Alcon [facility] URINE DRUG (IMMUNOASSAY) - COMPREHENSIVE DRUG SCREEN W/O REFLEX 2022-07-31 20:52:00 Alcon [facility] XR CHEST 1 VW 2022-07-31 18:45:17 [facility]con [facility] LIPASE 2022-07-31 17:58:00 [facility] TROPONIN I 2022-07-31 17:58:00 Alcon [facility] COMP. METABOLIC PANEL ([id number]) 2022-07-31 17:58:00 Alcon [facility] CBC WITH DIFF 2022-07-31 17:58:00 Alcon [facility] PROTHROMBIN TIME / INR 2022-07-31 17:58:00 [facility] ACTIVATED PARTIAL THRMPLAS DAVID 2022-07-31 17:58:00 [facility] N-TERMINAL PRO-BNP 2022-07-31 17:58:00 Alcon [facility] HB ECG ROUTINE & RHYTHM STRIP 2022-07-31 17:46:28 Sav Rondon [facility] NOTICE OF PRIVACY PRACTICES 2022-07-31 17:35:38 Doctor Unassigned, [place] [facility] CONSENT/REFUSAL FOR DIAGNOSI S AND TREATMENT 2022-07-31 17:35:13 Doctor Unassigned, [place] [facility] PHOSPHORUS 2022-05-08 05:51:00 Azeem Meehan [facility] MAGNESIUM 2022-05-08 05:51:00 Shefali [facility] BASIC METABOLIC PANEL (NA, K , CL, CO2, GLUCOSE, BUN, CREATININE, CA) 2022-05-08 05:51:00 Shefali [facility] CBC WITH DIFF 2022-05-08 05:51:00 Shefali [facility] BASIC METABOLIC PANEL (NA, K , CL, CO2, GLUCOSE, BUN, CREATININE, CA) 2022-05-07 07:09:00 John Cintron [facility] CBC WITH DIFF 2022-05-07 07:09:00 John Cintron [facility] POCT GLUCOSE (AUTOMATED) 2022-05-07 01:16:00 Brandyn Ibrahim [facility] HB ABO GROUPING 2022-05-06 05:07:00 Ismael Dunn [facility] BASIC METABOLIC PANEL (NA, K , CL, CO2, GLUCOSE, BUN, CREATININE, CA) 2022-05-06 05:04:00 Shefali Azeem [facility] CBC WITH DIFF 2022-05-06 05:04:00 Shefali [facility] KEPPRA (LEVETIRACETAM) 2022-05-06 05:04:00 Shefali [facility] MR LUMBAR SPINE WO CONTRAST 2022-05-06 02:54:37 Ender Monet [facility] ELECTROENCEPHALOGRAM 2022-05-06 00:00:00 John Cintron [facility] BASIC METABOLIC PANEL (NA, K , CL, CO2, GLUCOSE, BUN, CREATININE, CA) 2022-05-05 07:57:00 Ismael Dunn [facility] CBC WITH DIFF 2022-05-05 07:57:00 Ismael Dunn [facility] PROTHROMBIN TIME / INR 2022-05-05 07:57:00 Ismael Dunn [facility] ACTIVATED PARTIAL THRMPLAS DAVID 2022-05-05 07:57[facility]00 [facility] 2022-05-05 07:57:00 Shaun Nondenominational [facility] EMERGENCY SERVICES AGREEMENT S AND AUTHORIZATIONS 2022-05-04 05:01:00 Doctor Unassigned, [place] [facility] VITAMIN D, 25-OH 2022-04-15 16:53:00 Sen [place] [facility] MR THORACIC SPINE WO CONTRAST 2022-04-15 11:56:19 Harshil [facility] MR CERVICAL SPINE WO CONTRAST 2022-04-15 11:20:00 Harshil [facility] BASIC METABOLIC PANEL (NA, K , CL, CO2, GLUCOSE, BUN, CREATININE, CA) 2022-04-15 10:36:00 Charmaine Morataya [facility] TEST, URINE 2022-04-15 04:39:00 Harshil [facility] URINE DRUG (IMMUNOASSAY) - COMPREHENSIVE DRUG SCREEN 2022-04-15 04:39:00 Harshil [facility] URINALYSIS 2022-04-15 04:39:00 Harshil [facility] TRANSTHORACIC ECHO (TTE) COMPLETE W/ CONTRAST 2022-04-14 16:37:03 Harshil [facility] KEPPRA (LEVETIRACETAM) 2022-04-14 15:30:00 Harshil [facility] MAGNESIUM 2022-04-14 10:03:00 Harshil [facility] BASIC METABOLIC PANEL (NA, K , CL, CO2, GLUCOSE, BUN, CREATININE, CA) 2022-04-14 10:03:00 Harshil [facility] MR LUMBAR SPINE WO CONTRAST 2022-04-14 02:48:12 Harshil [facility] MR STROKE BRAIN WO CONTRAST 2022-04-14 02:29:[address] [facility] CT STROKE ANGIOGRAM HEAD 2022-04-13 18:40:00 Sapna Vargas [facility] CT STROKE ANGIOGRAM NECK 2022-04-13 18:40:00 Sapna Vargas [facility] CT STROKE HEAD WO CONTRAST 2022-04-13 18:36:00 Sapna Vargas [facility] TROPONIN I 2022-04-13 18:17:00 Sapna Vargas [facility] THYROID STIMULATING HORMONE 2022-04-13 18:17:00 Harshil [facility] BASIC METABOLIC PANEL (NA, K , CL, CO2, GLUCOSE, BUN, CREATININE, CA) 2022-04-13 18:17:00 Sapna Vargas [facility] LIPID PANEL ([id number])(TOTAL CHOLESTEROL, TRIGLYCERIDES, HDL) 2022-04-13 18:17:00 Harshil [facility] CBC WITHOUT DIFF 2022-04-13 18:17:00 Sapna Vargas [facility] GLYCOSYLATED HEMOGLOBIN (A1C) 2022-04-13 18:17:00 Harshil [facility] PROTHROMBIN TIME / INR 2022-04-13 18:17:00 Sapna Vargas [facility] ACTIVATED PARTIAL THRMPLAS DAVID 2022-04-13 18:17:00 Sapna Vargas [facility] COVID-19 (ID NOW RAPID TESTING) 2022-04-13 18:17:00 Sapna Vargas [facility] LAB ONLY COVID INTERPRETATION 2022-04-13 18:17:00 Sapna Vargas [facility] HB ECG ROUTINE & RHYTHM STRIP 2022-04-13 18:15:49 Sapna Vargas [facility] CONSENT/REFUSAL FOR DIAGNOSI S AND TREATMENT 2022-04-13 18:05:14 Doctor Unassigned, [place] [facility] HOSPITAL ADMISSION 2022-04-13 05:01:00 Doctor Unassigned, [place] [facility] SARS-COV-2 COVID-19 VACCINE 12 YRS+,0.3ML,IM (PFIZER - ROSE TOP) 2022-02-19 15:21:12 Doctor Unassigned, [place] [facility] URINE DRUG (IMMUNOASSAY) - COMPREHENSIVE DRUG SCREEN W/O REFLEX 2021-11-23 21:21:00 Nichelle Virk [facility] CT HEAD WO CONTRAST 2021-11-23 20:58:00 Nichelle Virk [facility] POCT TEST 2021-11-23 20:46:00 Nichelle Virk [facility] URINALYSIS 2021-11-23 20:43:00 Nichelle Virk [facility] LIPASE 2021-11-23 20:27:00 Nichelle Virk [facility] TROPONIN I 2021-11-23 20:27:00 Nichelle Virk [facility] COMP. METABOLIC PANEL ([id number]) 2021-11-23 20:27:00 Nichelle Virk [facility] CBC WITH DIFF 2021-11-23 20:27:00 Nichelle Virk [facility] POCT GLUCOSE (AUTOMATED) 2021-11-23 20:15:00 Doctor Unassigned, [place] [facility] SARS-COV-2 COVID-19 VACCINE,0.3ML,IM (PFIZER) 2021-05-24 14:23:12 Doctor Unassigned, [place] [facility] SARS-COV-2 COVID-19 VACCINE,0.3ML,IM (PFIZER) 2021-05-03 14:59:29 Doctor Unassigned, [place] [facility] EMERGENCY SERVICES AGREEMENT S AND AUTHORIZATIONS 2021-04-16 05:01:00 Doctor Unassigned, [place] [facility] URINALYSIS 2021-03-17 03:09:00 Fabrice Chakraborty [facility] XR CHEST 1 VW 2021-03-17 01:45:07 Fabrice Chakraborty [facility] TROPONIN I 2021-03-17 01:35:00 Fabrice Chakraborty [facility] COMP. METABOLIC PANEL ([id number]) 2021-03-17 01:35:00 Fabrice Chakraborty [facility] CBC WITH DIFF 2021-03-17 01:35:00 Fabrice Chakraborty [facility] N-TERMINAL PRO-BNP 2021-03-17 01:35:00 [facility] COVID-19 (ID NOW RAPID TESTING) 2021-03-17 00:58:00 Brian Ray [facility] CONSENT/REFUSAL FOR DIAGNOSI S AND TREATMENT 2021-03-17 00:32:59 Doctor Unassigned, [place] [facility] COVID-19 (ID NOW RAPID TESTING) 2021-02-19 17:04:00 Anali Monroy [facility] CT ABDOMEN PELVIS W CONTRAST 2021-02-19 16:41:18 Anali Monroy [facility] LIPASE 2021-02-19 15:58:00 Anali Monroy [facility] COMP. METABOLIC PANEL ([id number]) 2021-02-19 15:58:00 Anali Monroy [facility] CBC WITH DIFF 2021-02-19 15:58:00 Anali Monroy [facility] URINALYSIS 2021-02-19 15:58:00 Anali Monroy [facility] NOTICE OF PRIVACY PRACTICES 2021-02-19 15:30:46 Doctor Unassigned, [place] [facility] CONSENT/REFUSAL FOR DIAGNOSI S AND TREATMENT 2021-02-19 15:30:30 Doctor Unassigned, [place] [facility] Plan of Care Planned Activity Planned Date Details Comments Source Future Scheduled Test 2025-08-02 00:00:00 Lipid panel (procedure) [code = 71383846] [facility] Future Scheduled Test 2025-08-02 00:00:00 Lipid panel (procedure) [code = 24682540] [facility] Future Scheduled Test 2025-08-02 00:00:00 Lipid panel (procedure) [code = 07671012] [facility] Future Scheduled Test 2025-08-02 00:00:00 Lipid panel (procedure) [code = 95138709] [facility] Future Scheduled Test 2025-08-02 00:00:00 Lipid panel (procedure) [code = 23539646] [facility] Future Scheduled Test 2025-08-02 00:00:00 Lipid panel (procedure) [code = 04995074] [facility] Future Scheduled Test 2025-08-02 00:00:00 Lipid panel (procedure) [code = 31389308] [facility] Future Scheduled Test 2025-08-02 00:00:00 Lipid panel (procedure) [code = 78845210] [facility] Future Scheduled Test 2025-08-02 00:00:00 Lipid panel (procedure) [code = 66901917] [facility] Future Scheduled Test 2025-08-02 00:00:00 Lipid panel (procedure) [code = [id number]] [facility] Future Scheduled Test 2025-08-02 00:00:00 Lipid panel (procedure) [code = 42621335] [facility] Future Scheduled Test 2025-08-02 00:00:00 Lipid panel (procedure) [code = 23274491] [facility] Future Scheduled Test 2025-08-02 00:00:00 Lipid panel (procedure) [code = 78313818] [facility] Future Scheduled Test 2025-08-02 00:00:00 Lipid panel (procedure) [code = 27965708] [facility] Future Scheduled Test 2025-08-02 00:00:00 Lipid panel (procedure) [code = 20045825] [facility] Future Scheduled Test 2025-08-02 00:00:00 Lipid panel (procedure) [code = 51771750] [facility] Future Scheduled Test 2025-08-02 00:00:00 Lipid panel (procedure) [code = 32321434] [facility] Future Scheduled Test 2025-08-02 00:00:00 Lipid panel (procedure) [code = 43231337] [facility] Future Scheduled Test 2025-08-02 00:00:00 Lipid panel (procedure) [code = 66726034] [facility] Future Scheduled Test 2025-08-02 00:00:00 Lipid panel (procedure) [code = 71234427] [facility] Future Scheduled Test 2025-08-02 00:00:00 Lipid panel (procedure) [code = 00484846] [facility] Future Scheduled Test 2025-08-02 00:00:00 Lipid panel (procedure) [code = 76765752] [facility] Future Scheduled Test 2025-08-02 00:00:00 Lipid panel (procedure) [code = 80537536] [facility] Future Scheduled Test 2025-08-02 00:00:00 Lipid panel (procedure) [code = 04453505] [facility] Future Scheduled Test 2025-08-02 00:00:00 Lipid panel (procedure) [code = 90941374] [facility] Future Scheduled Test 2025-08-02 00:00:00 Lipid panel (procedure) [code = 52387820] [facility] Future Scheduled Test 2025-08-02 00:00:00 Lipid panel (procedure) [code = 26877142] [facility] Future Scheduled Test 2025-08-02 00:00:00 Lipid panel (procedure) [code = 67495247] [facility] Future Scheduled Test 2025-08-02 00:00:00 Lipid panel (procedure) [code = 58242369] [facility] Future Scheduled Test 2025-08-02 00:00:00 Lipid panel (procedure) [code = 90599345] [facility] Future Scheduled Test 2025-08-02 00:00:00 Lipid panel (procedure) [code = 12201846] [facility] [facility] 00:00:00 Tobacco Cessation Counseling and Screening (12+) [code = Tobacco Cessation Counseling and Screening (12+)] [facility] Future Scheduled Test 2024-05-28 00:00:00 Tobacco Cessation Counseling and Screening (12+) [code = Tobacco Cessation Counseling and Screening (12+)] [facility] Future Scheduled Test 2024-05-28 00:00:00 Tobacco Cessation Counseling and Screening (12+) [code = Tobacco Cessation Counseling and Screening (12+)] [facility] Future Scheduled Test 2024-05-28 00:00:00 Tobacco Cessation Counseling and Screening (12+) [code = Tobacco Cessation Counseling and Screening (12+)] [facility] Future Scheduled Test 2024-05-28 00:00:00 Tobacco Cessation Counseling and Screening (12+) [code = Tobacco Cessation Counseling and Screening (12+)] [facility] Future Scheduled Test 2024-05-28 00:00:00 Tobacco Cessation Counseling and Screening (12+) [code = Tobacco Cessation Counseling and Screening (12+)] [facility] Future Scheduled Test 2024-05-26 00:00:00 Tobacco Cessation Counseling and Screening (12+) [code = Tobacco Cessation Counseling and Screening (12+)] [facility] Scheduled Test 2024-05-26 00:00:00 Tobacco Cessation Counseling and Screening (12+) [code = Tobacco Cessation Counseling and Screening (12+)] [facility] Future Scheduled Test 2023-03-20 00:00:00 INFLUENZA VACCINE (Season Ended) [code = INFLUENZA VACCINE (Season Ended)] [facility] Future Scheduled Test 2023-03-20 00:00:00 INFLUENZA VACCINE (Season Ended) [code = INFLUENZA VACCINE (Season Ended)] [facility] Future Scheduled Test 2023-03-20 00:00:00 INFLUENZA VACCINE (Season Ended) [code = INFLUENZA VACCINE (Season Ended)] [facility] Future Scheduled Test 2023-03-20 00:00:00 INFLUENZA VACCINE (Season Ended) [code = INFLUENZA VACCINE (Season Ended)] [facility] Future Scheduled Test 2023-03-20 00:00:00 INFLUENZA VACCINE (Season Ended) [code = INFLUENZA VACCINE (Season Ended)] [facility] Future Scheduled Test 2023-03-20 00:00:00 INFLUENZA VACCINE (Season Ended) [code = INFLUENZA VACCINE (Season Ended)] [facility] Future Scheduled Test 2023-03-20 00:00:00 Influenza Vaccine (Season Ended) [code = Influenza Vaccine (Season Ended)] [facility] Future Scheduled Test 2023-03-20 00:00:00 Influenza Vaccine (Season Ended) [code = Influenza Vaccine (Season Ended)] [facility] Future Scheduled Test 2023-03-20 00:00:00 Influenza Vaccine (#1) [code = Influenza Vaccine (#1)] [facility] Future Scheduled Test 2023-03-20 00:00:00 Influenza Vaccine (#1) [code = Influenza Vaccine (#1)] [facility] Future Scheduled Test 2023-03-20 00:00:00 Influenza Vaccine (#1) [code = Influenza Vaccine (#1)] [facility] Future Scheduled Test 2023-03-20 00:00:00 Influenza Vaccine (#1) [code = Influenza Vaccine (#1)] [facility] Future Scheduled Test 2023-03-20 00:00:00 Influenza Vaccine (#1) [code = Influenza Vaccine (#1)] [facility] Future Scheduled Test 2023-03-20 00:00:00 Influenza Vaccine (#1) [code = Influenza Vaccine (#1)] [facility] Future Scheduled Test 2023-03-20 00:00:00 Influenza Vaccine (#1) [code = Influenza Vaccine (#1)] [facility] Future Scheduled Test 2023-03-20 00:00:00 Influenza Vaccine (#1) [code = Influenza Vaccine (#1)] [facility] Future Scheduled Test 2023-03-20 00:00:00 Influenza Vaccine (#1) [code = Influenza Vaccine (#1)] [facility] Future Scheduled Test 2023-03-20 00:00:00 Influenza Vaccine (#1) [code = Influenza Vaccine (#1)] [facility] Future Scheduled Test 2023-03-20 00:00:00 Influenza Vaccine (#1) [code = Influenza Vaccine (#1)] [facility] Future Scheduled Test 2023-03-20 00:00:00 Influenza Vaccine (#1) [code = Influenza Vaccine (#1)] [facility] Future Scheduled Test 2023-03-20 00:00:00 Influenza Vaccine (#1) [code = Influenza Vaccine (#1)] [facility] Future Scheduled Test 2023-03-20 00:00:00 Influenza Vaccine (#1) [code = Influenza Vaccine (#1)] [facility] Future Scheduled Test 2023-03-20 00:00:00 Influenza Vaccine (#1) [code = Influenza Vaccine (#1)] [facility] Future Scheduled Test 2023-03-20 00:00:00 Influenza Vaccine (#1) [code = Influenza Vaccine (#1)] [facility] Future Scheduled Test 2023-03-20 00:00:00 Influenza Vaccine (#1) [code = Influenza Vaccine (#1)] [facility] Future Scheduled Test 2023-03-20 00:00:00 Influenza Vaccine (#1) [code = Influenza Vaccine (#1)] [facility] Future Scheduled Test 2023-03-20 00:00:00 Influenza Vaccine (#1) [code = Influenza Vaccine (#1)] [facility] Future Scheduled Test 2023-03-20 00:00:00 COVID-19 VACCINE ( season) [code = COVID-19 VACCINE ( season)] [facility] Future Scheduled Test 2022-07-20 00:00:00 DEPRESSION SCREENING (12+) [code = DEPRESSION SCREENING (12+)] [facility] Future Scheduled Test 2022-07-20 00:00:00 DEPRESSION SCREENING (12+) [code = DEPRESSION SCREENING (12+)] [facility] Future Scheduled Test 2022-07-20 00:00:00 DEPRESSION SCREENING (12+) [code = DEPRESSION SCREENING (12+)] [facility] Future Scheduled Test 2022-07-20 00:00:00 DEPRESSION SCREENING (12+) [code = DEPRESSION SCREENING (12+)] [facility] Future Scheduled Test 2022-07-20 00:00:00 DEPRESSION SCREENING (12+) [code = DEPRESSION SCREENING (12+)] [facility] Future Scheduled Test 2022-07-20 00:00:00 DEPRESSION SCREENING (12+) [code = DEPRESSION SCREENING (12+)] [facility] Future Scheduled Test 2022-07-20 00:00:00 DEPRESSION SCREENING (12+) [code = DEPRESSION SCREENING (12+)] [facility] Future Scheduled Test 2022-07-20 00:00:00 DEPRESSION SCREENING (12+) [code = DEPRESSION SCREENING (12+)] [facility] Future Scheduled Test 2022-07-20 00:00:00 DEPRESSION SCREENING (12+) [code = DEPRESSION SCREENING (12+)] [facility] Future Scheduled Test 2022-07-20 00:00:00 DEPRESSION SCREENING (12+) [code = DEPRESSION SCREENING (12+)] [facility] Future Scheduled Test 2022-07-20 00:00:00 DEPRESSION SCREENING (12+) [code = DEPRESSION SCREENING (12+)] [facility] Future Scheduled Test 2022-07-20 00:00:00 DEPRESSION SCREENING (12+) [code = DEPRESSION SCREENING (12+)] [facility] Future Scheduled Test 2022-07-20 00:00:00 DEPRESSION SCREENING (12+) [code = DEPRESSION SCREENING (12+)] [facility] Future Scheduled Test 2022-07-20 00:00:00 DEPRESSION SCREENING (12+) [code = DEPRESSION SCREENING (12+)] [facility] Future Scheduled Test 2022-07-20 00:00:00 DEPRESSION SCREENING (12+) [code = DEPRESSION SCREENING (12+)] [facility] Future Scheduled Test 2022-07-20 00:00:00 DEPRESSION SCREENING (12+) [code = DEPRESSION SCREENING (12+)] [facility] Future Scheduled Test 2022-07-20 00:00:00 DEPRESSION SCREENING (12+) [code = DEPRESSION SCREENING (12+)] [facility] Future Scheduled Test 2022-07-20 00:00:00 DEPRESSION SCREENING (12+) [code = DEPRESSION SCREENING (12+)] [facility] Future Scheduled Test 2022-07-20 00:00:00 DEPRESSION SCREENING (12+) [code = DEPRESSION SCREENING (12+)] [facility] Future Scheduled Test 2022-07-20 00:00:00 DEPRESSION SCREENING (12+) [code = DEPRESSION SCREENING (12+)] [facility] Future Scheduled Test 2022-07-20 00:00:00 DEPRESSION SCREENING (12+) [code = DEPRESSION SCREENING (12+)] [facility] Future Scheduled Test 2022-07-20 00:00:00 DEPRESSION SCREENING (12+) [code = DEPRESSION SCREENING (12+)] [facility] Future Scheduled Test 2022-07-20 00:00:00 DEPRESSION SCREENING (12+) [code = DEPRESSION SCREENING (12+)] [facility] Future Scheduled Test 2022-07-20 00:00:00 DEPRESSION SCREENING (12+) [code = DEPRESSION SCREENING (12+)] [facility] Future Scheduled Test 2022-07-20 00:00:00 DEPRESSION SCREENING (12+) [code = DEPRESSION SCREENING (12+)] [facility] Future Scheduled Test 2022-07-20 00:00:00 DEPRESSION SCREENING (12+) [code = DEPRESSION SCREENING (12+)] [facility] Future Scheduled Test 2022-07-20 00:00:00 DEPRESSION SCREENING (12+) [code = DEPRESSION SCREENING (12+)] [facility] Future Scheduled Test 2022-07-20 00:00:00 DEPRESSION SCREENING (12+) [code = DEPRESSION SCREENING (12+)] [facility] Future Scheduled Test 2022-07-20 00:00:00 DEPRESSION SCREENING (12+) [code = DEPRESSION SCREENING (12+)] [facility] Future Scheduled Test 2022-07-20 00:00:00 DEPRESSION SCREENING (12+) [code = DEPRESSION SCREENING (12+)] [facility] Future Scheduled Test 2022-07-20 00:00:00 DEPRESSION SCREENING (12+) [code = DEPRESSION SCREENING (12+)] [facility] Future Scheduled Test 2022-06-21 00:00:00 COVID-19 VACCINE (4 - Booster for Pfizer series) [code = COVID-19 VACCINE (4 - Booster for Pfizer series)] [facility] Future Scheduled Test 2022-06-21 00:00:00 COVID-19 VACCINE (4 - Booster for Pfizer series) [code = COVID-19 VACCINE (4 - Booster for Pfizer series)] [facility] Future Scheduled Test 2022-06-21 00:00:00 COVID-19 VACCINE (4 - Booster for Pfizer series) [code = COVID-19 VACCINE (4 - Booster for Pfizer series)] [facility] Future Scheduled Test 2022-06-21 00:00:00 COVID-19 VACCINE (4 - Booster for Pfizer series) [code = COVID-19 VACCINE (4 - Booster for Pfizer series)] [facility] Future Scheduled Test 2022-04-16 00:00:00 COVID-19 VACCINE (4 - Booster for Pfizer series) [code = COVID-19 VACCINE (4 - Booster for Pfizer series)] [facility] Future Scheduled Test 2022-04-16 00:00:00 COVID-19 VACCINE (4 - Booster for Pfizer series) [code = COVID-19 VACCINE (4 - Booster for Pfizer series)] [facility] Future Scheduled Test 2022-04-16 00:00:00 COVID-19 VACCINE (4 - Booster for Pfizer series) [code = COVID-19 VACCINE (4 - Booster for Pfizer series)] [facility] Future Scheduled Test 2022-04-16 00:00:00 COVID-19 VACCINE (4 - Booster for Pfizer series) [code = COVID-19 VACCINE (4 - Booster for Pfizer series)] [facility] Future Scheduled Test 2022-04-16 00:00:00 COVID-19 VACCINE (4 - Booster for Pfizer series) [code = COVID-19 VACCINE (4 - Booster for Pfizer series)] [facility] Future Scheduled Test 2022-04-16 00:00:00 COVID-19 VACCINE (4 - Booster for Pfizer series) [code = COVID-19 VACCINE (4 - Booster for Pfizer series)] [facility] Future Scheduled Test 2022-04-16 00:00:00 COVID-19 VACCINE (4 - Booster for Pfizer series) [code = COVID-19 VACCINE (4 - Booster for Pfizer series)] [facility] Future Scheduled Test 2022-04-16 00:00:00 COVID-19 VACCINE (4 - Booster for Pfizer series) [code = COVID-19 VACCINE (4 - Booster for Pfizer series)] [facility] Future Scheduled Test 2022-04-16 00:00:00 COVID-19 VACCINE (4 - Booster for Pfizer series) [code = COVID-19 VACCINE (4 - Booster for Pfizer series)] [facility] Future Scheduled Test 2022-04-16 00:00:00 COVID-19 VACCINE (4 - Booster for Pfizer series) [code = COVID-19 VACCINE (4 - Booster for Pfizer series)] [facility] Future Scheduled Test 2022-04-16 00:00:00 COVID-19 VACCINE (4 - Booster for Pfizer series) [code = COVID-19 VACCINE (4 - Booster for Pfizer series)] [facility] Future Scheduled Test 2022-04-16 00:00:00 COVID-19 VACCINE (4 - Booster for Pfizer series) [code = COVID-19 VACCINE (4 - Booster for Pfizer series)] [facility] Future Scheduled Test 2022-04-16 00:00:00 COVID-19 VACCINE (4 - Booster for Pfizer series) [code = COVID-19 VACCINE (4 - Booster for Pfizer series)] [facility] Future Scheduled Test 2022-04-16 00:00:00 COVID-19 VACCINE (4 - Booster for Pfizer series) [code = COVID-19 VACCINE (4 - Booster for Pfizer series)] [facility] Future Scheduled Test 2022-04-16 00:00:00 COVID-19 VACCINE (4 - Booster for Pfizer series) [code = COVID-19 VACCINE (4 - Booster for Pfizer series)] [facility] Future Scheduled Test 2022-04-16 00:00:00 COVID-19 VACCINE (4 - Booster for Pfizer series) [code = COVID-19 VACCINE (4 - Booster for Pfizer series)] [facility] Future Scheduled Test 2022-04-16 00:00:00 COVID-19 VACCINE (4 - Booster for Pfizer series) [code = COVID-19 VACCINE (4 - Booster for Pfizer series)] [facility] Future Scheduled Test 2022-04-16 00:00:00 COVID-19 VACCINE (4 - Booster for Pfizer series) [code = COVID-19 VACCINE (4 - Booster for Pfizer series)] [facility] Future Scheduled Test 2022-04-16 00:00:00 COVID-19 VACCINE (4 - Booster for Pfizer series) [code = COVID-19 VACCINE (4 - Booster for Pfizer series)] [facility] Future Scheduled Test 2022-04-16 00:00:00 COVID-19 VACCINE (4 - Booster for Pfizer series) [code = COVID-19 VACCINE (4 - Booster for Pfizer series)] [facility] Future Scheduled Test 2022-04-16 00:00:00 COVID-19 VACCINE (4 - Pfizer series) [code = COVID-19 VACCINE (4 - Pfizer series)] [facility] Future Scheduled Test 2022-04-16 00:00:00 COVID-19 VACCINE (4 - Pfizer series) [code = COVID-19 VACCINE (4 - Pfizer series)] [facility] Future Scheduled Test 2022-04-16 00:00:00 COVID-19 VACCINE (4 - Pfizer series) [code = COVID-19 VACCINE (4 - Pfizer series)] [facility] Future Scheduled Test 2022-04-16 00:00:00 COVID-19 VACCINE (4 - Pfizer series) [code = COVID-19 VACCINE (4 - Pfizer series)] [facility] Future Scheduled Test 2022-04-16 00:00:00 COVID-19 VACCINE (4 - Booster for Pfizer series) [code = COVID-19 VACCINE (4 - Booster for Pfizer series)] [facility] Future Scheduled Test 2022-04-16 00:00:00 COVID-19 VACCINE (4 - Pfizer series) [code = COVID-19 VACCINE (4 - Pfizer series)] [facility] Future Scheduled Test 2022-03-20 00:00:00 INFLUENZA VACCINE (#1) [code = INFLUENZA VACCINE (#1)] [facility] Future Scheduled Test 2022-03-20 00:00:00 INFLUENZA VACCINE (#1) [code = INFLUENZA VACCINE (#1)] [facility] Future Scheduled Test 2022-03-20 00:00:00 INFLUENZA VACCINE (#1) [code = INFLUENZA VACCINE (#1)] [facility] Future Scheduled Test 2022-03-20 00:00:00 INFLUENZA VACCINE (#1) [code = INFLUENZA VACCINE (#1)] [facility] Future Scheduled Test 2022-01-14 00:00:00 SHINGLES VACCINES (1 of 2) [code = SHINGLES VACCINES (1 of 2)] [facility] Future Scheduled Test 2022-01-14 00:00:00 SHINGLES VACCINES (1 of 2) [code = SHINGLES VACCINES (1 of 2)] [facility] Future Scheduled Test 2022-01-14 00:00:00 SHINGLES VACCINES (1 of 2) [code = SHINGLES VACCINES (1 of 2)] [facility] Future Scheduled Test 2022-01-14 00:00:00 SHINGLES VACCINES (1 of 2) [code = SHINGLES VACCINES (1 of 2)] [facility] Future Scheduled Test 2022-01-14 00:00:00 SHINGLES VACCINES (1 of 2) [code = SHINGLES VACCINES (1 of 2)] [facility] Future Scheduled Test 2022-01-14 00:00:00 SHINGLES VACCINES (1 of 2) [code = SHINGLES VACCINES (1 of 2)] [facility] Future Scheduled Test 2022-01-14 00:00:00 SHINGLES VACCINES (1 of 2) [code = SHINGLES VACCINES (1 of 2)] [facility] Future Scheduled Test 2022-01-14 00:00:00 SHINGLES VACCINES (1 of 2) [code = SHINGLES VACCINES (1 of 2)] [facility] Future Scheduled Test 2022-01-14 00:00:00 SHINGLES VACCINES (1 of 2) [code = SHINGLES VACCINES (1 of 2)] [facility] Future Scheduled Test 2022-01-14 00:00:00 SHINGLES VACCINES (1 of 2) [code = SHINGLES VACCINES (1 of 2)] [facility] Future Scheduled Test 2022-01-14 00:00:00 SHINGLES VACCINES (1 of 2) [code = SHINGLES VACCINES (1 of 2)] [facility] Future Scheduled Test 2022-01-14 00:00:00 SHINGLES VACCINES (1 of 2) [code = SHINGLES VACCINES (1 of 2)] [facility] Future Scheduled Test 2022-01-14 00:00:00 SHINGLES VACCINES (1 of 2) [code = SHINGLES VACCINES (1 of 2)] [facility] Future Scheduled Test 2022-01-14 00:00:00 SHINGLES VACCINES (1 of 2) [code = SHINGLES VACCINES (1 of 2)] [facility] Future Scheduled Test 2022-01-14 00:00:00 SHINGLES VACCINES (1 of 2) [code = SHINGLES VACCINES (1 of 2)] [facility] Future Scheduled Test 2022-01-14 00:00:00 Screening for malignant neoplasm of lung (procedure) [code = [id number]] [facility] Future Scheduled Test 2022-01-14 00:00:00 SHINGLES VACCINES (1 of 2) [code = SHINGLES VACCINES (1 of 2)] [facility] Future Scheduled Test 2022-01-14 00:00:00 Screening for malignant neoplasm of lung (procedure) [code = [id number]] [facility] Future Scheduled Test 2022-01-14 00:00:00 SHINGLES VACCINES (1 of 2) [code = SHINGLES VACCINES (1 of 2)] [facility] Future Scheduled Test 2022-01-14 00:00:00 Screening for malignant neoplasm of lung (procedure) [code = [id number]] [facility] Future Scheduled Test 2022-01-14 00:00:00 SHINGLES VACCINES (1 of 2) [code = SHINGLES VACCINES (1 of 2)] [facility] Future Scheduled Test 2022-01-14 00:00:00 Screening for malignant neoplasm of lung (procedure) [code = [id number]] [facility] Future Scheduled Test 2022-01-14 00:00:00 SHINGLES VACCINES (1 of 2) [code = SHINGLES VACCINES (1 of 2)] [facility] Future Scheduled Test 2022-01-14 00:00:00 Screening for malignant neoplasm of lung (procedure) [code = [id number]] [facility] Future Scheduled Test 2022-01-14 00:00:00 SHINGLES VACCINES (1 of 2) [code = SHINGLES VACCINES (1 of 2)] [facility] Future Scheduled Test 2022-01-14 00:00:00 Screening for malignant neoplasm of lung (procedure) [code = [id number]] [facility] Future Scheduled Test 2022-01-14 00:00:00 SHINGLES VACCINES (1 of 2) [code = SHINGLES VACCINES (1 of 2)] [facility] Future Scheduled Test 2022-01-14 00:00:00 Screening for malignant neoplasm of lung (procedure) [code = [id number]] [facility] Future Scheduled Test 2022-01-14 00:00:00 SHINGLES VACCINES (1 of 2) [code = SHINGLES VACCINES (1 of 2)] [facility] Future Scheduled Test 2022-01-14 00:00:00 SHINGLES VACCINES (1 of 2) [code = SHINGLES VACCINES (1 of 2)] [facility] Future Scheduled Test 2022-01-14 00:00:00 SHINGLES VACCINES (1 of 2) [code = SHINGLES VACCINES (1 of 2)] [facility] Future Scheduled Test 2022-01-14 00:00:00 Screening for malignant neoplasm of lung (procedure) [code = 300323566] [facility] Future Scheduled Test 2022-01-14 00:00:00 SHINGLES VACCINES (1 of 2) [code = SHINGLES VACCINES (1 of 2)] [facility] Future Scheduled Test 2022-01-14 00:00:00 Screening for malignant neoplasm of lung (procedure) [code = 823832423] [facility] Future Scheduled Test 2022-01-14 00:00:00 SHINGLES VACCINES (1 of 2) [code = SHINGLES VACCINES (1 of 2)] [facility] Future Scheduled Test 2022-01-14 00:00:00 Screening for malignant neoplasm of lung (procedure) [code = 556591551] [facility] Future Scheduled Test 2022-01-14 00:00:00 SHINGLES VACCINES (1 of 2) [code = SHINGLES VACCINES (1 of 2)] [facility] Future Scheduled Test 2022-01-14 00:00:00 Screening for malignant neoplasm of lung (procedure) [code = 283328384] [facility] Future Scheduled Test 2022-01-14 00:00:00 SHINGLES VACCINES (1 of 2) [code = SHINGLES VACCINES (1 of 2)] [facility] Future Scheduled Test 2022-01-14 00:00:00 Screening for malignant neoplasm of lung (procedure) [code = 205899316] [facility] Future Scheduled Test 2022-01-14 00:00:00 SHINGLES VACCINES (1 of 2) [code = SHINGLES VACCINES (1 of 2)] [facility] Future Scheduled Test 2022-01-14 00:00:00 Screening for malignant neoplasm of lung (procedure) [code = 377733350] [facility] Future Scheduled Test 2022-01-14 00:00:00 SHINGLES VACCINES (1 of 2) [code = SHINGLES VACCINES (1 of 2)] [facility] Future Scheduled Test 2022-01-14 00:00:00 Screening for malignant neoplasm of lung (procedure) [code = 486515445] [facility] Future Scheduled Test 2022-01-14 00:00:00 SHINGLES VACCINES (1 of 2) [code = SHINGLES VACCINES (1 of 2)] [facility] Future Scheduled Test 2013-12-15 00:00:00 PNEUMOCOCCAL VACCINE 0-64 YRS (2 - PCV) [code = PNEUMOCOCCAL VACCINE 0-64 YRS (2 - PCV)] [facility] Future Scheduled Test 2013-12-15 00:00:00 PNEUMOCOCCAL VACCINE 0-64 YRS (2 - PCV) [code = PNEUMOCOCCAL VACCINE 0-64 YRS (2 - PCV)] [facility] Future Scheduled Test 2013-12-15 00:00:00 PNEUMOCOCCAL VACCINE 0-64 YRS (2 - PCV) [code = PNEUMOCOCCAL VACCINE 0-64 YRS (2 - PCV)] [facility] Future Scheduled Test 2013-12-15 00:00:00 PNEUMOCOCCAL VACCINE 0-64 YRS (2 - PCV) [code = PNEUMOCOCCAL VACCINE 0-64 YRS (2 - PCV)] [facility] Future Scheduled Test 2013-12-15 00:00:00 Pneumococcal Vaccine: 0-64 Years (2 - PCV) [code = Pneumococcal Vaccine: 0-64 Years (2 - PCV)] [facility] Future Scheduled Test 2013-12-15 00:00:00 Pneumococcal Vaccine: 0-64 Years (2 - PCV) [code = Pneumococcal Vaccine: 0-64 Years (2 - PCV)] [facility] Future Scheduled Test 2013-12-15 00:00:00 Pneumococcal Vaccine: 0-64 Years (2 - PCV) [code = Pneumococcal Vaccine: 0-64 Years (2 - PCV)] [facility] Future Scheduled Test 1993-01-14 00:00:00 Screening for malignant neoplasm of cervix (procedure) [code = 839742843] [facility] Future Scheduled Test 1993-01-14 00:00:00 Screening for malignant neoplasm of cervix (procedure) [code = 577584437] [facility] Future Scheduled Test 1993-01-14 00:00:00 Screening for malignant neoplasm of cervix (procedure) [code = 640830426] [facility] Future Scheduled Test 1993-01-14 00:00:00 Screening for malignant neoplasm of cervix (procedure) [code = 370608237] [facility] Future Scheduled Test 1993-01-14 00:00:00 Screening for malignant neoplasm of cervix (procedure) [code = 157891917] [facility] Future Scheduled Test 1993-01-14 00:00:00 Screening for malignant neoplasm of cervix (procedure) [code = 304940187] [facility] Future Scheduled Test 1993-01-14 00:00:00 Screening for malignant neoplasm of cervix (procedure) [code = 444437172] [facility] Future Scheduled Test 1993-01-14 00:00:00 Screening for malignant neoplasm of cervix (procedure) [code = [id number]] [facility] Future Scheduled Test 1993-01-14 00:00:00 Screening for malignant neoplasm of cervix (procedure) [code = 686752308] [facility] Future Scheduled Test 1993-01-14 00:00:00 Screening for malignant neoplasm of cervix (procedure) [code = [id number]] [facility] Future Scheduled Test 1993-01-14 00:00:00 Screening for malignant neoplasm of cervix (procedure) [code = [id number]] [facility] Future Scheduled Test 1993-01-14 00:00:00 Screening for malignant neoplasm of cervix (procedure) [code = 760962277] [facility] Future Scheduled Test 1993-01-14 00:00:00 Screening for malignant neoplasm of cervix (procedure) [code = 523980486] [facility] Future Scheduled Test 1993-01-14 00:00:00 Screening for malignant neoplasm of cervix (procedure) [code = 503806146] [facility] Future Scheduled Test 1993-01-14 00:00:00 Screening for malignant neoplasm of cervix (procedure) [code = [id number]] [facility] Future Scheduled Test 1993-01-14 00:00:00 Screening for malignant neoplasm of cervix (procedure) [code = 865799370] [facility] Future Scheduled Test 1993-01-14 00:00:00 Screening for malignant neoplasm of cervix (procedure) [code = 410909576] [facility] Future Scheduled Test 1993-01-14 00:00:00 Screening for malignant neoplasm of cervix (procedure) [code = 733013705] [facility] Future Scheduled Test 1993-01-14 00:00:00 Screening for malignant neoplasm of cervix (procedure) [code = 086070484] [facility] Future Scheduled Test 1993-01-14 00:00:00 Screening for malignant neoplasm of cervix (procedure) [code = [id number]] [facility] Future Scheduled Test 1993-01-14 00:00:00 Screening for malignant neoplasm of cervix (procedure) [code = 295275922] [facility] Future Scheduled Test 1993-01-14 00:00:00 Screening for malignant neoplasm of cervix (procedure) [code = 310039174] [facility] Future Scheduled Test 1993-01-14 00:00:00 Screening for malignant neoplasm of cervix (procedure) [code = 666991647] [facility] Future Scheduled Test 1993-01-14 00:00:00 Screening for malignant neoplasm of cervix (procedure) [code = 429478417] [facility] Future Scheduled Test 1993-01-14 00:00:00 Screening for malignant neoplasm of cervix (procedure) [code = 644818940] [facility] Future Scheduled Test 1993-01-14 00:00:00 Screening for malignant neoplasm of cervix (procedure) [code = 383930627] [facility] Future Scheduled Test 1993-01-14 00:00:00 Screening for malignant neoplasm of cervix (procedure) [code = 804214987] [facility] Future Scheduled Test 1993-01-14 00:00:00 Screening for malignant neoplasm of cervix (procedure) [code = 774466081] [facility] Future Scheduled Test 1993-01-14 00:00:00 Screening for malignant neoplasm of cervix (procedure) [code = 554297319] [facility] Future Scheduled Test 1993-01-14 00:00:00 Screening for malignant neoplasm of cervix (procedure) [code = 812483447] [facility] Future Scheduled Test 1993-01-14 00:00:00 Screening for malignant neoplasm of cervix (procedure) [code = 662439661] [facility] Future Scheduled Test 1991-01-14 00:00:00 DTAP/TDAP/TD VACCINES (1 - Tdap) [code = DTAP/TDAP/TD VACCINES (1 - Tdap)] [facility] Future Scheduled Test 1991-01-14 00:00:00 DTAP/TDAP/TD VACCINES (1 - Tdap) [code = DTAP/TDAP/TD VACCINES (1 - Tdap)] [facility] Future Scheduled Test 1991-01-14 00:00:00 DTAP/TDAP/TD VACCINES (1 - Tdap) [code = DTAP/TDAP/TD VACCINES (1 - Tdap)] [facility] Future Scheduled Test 1991-01-14 00:00:00 DTAP/TDAP/TD VACCINES (1 - Tdap) [code = DTAP/TDAP/TD VACCINES (1 - Tdap)] [facility] Future Scheduled Test 1991-01-14 00:00:00 DTAP/TDAP/TD VACCINES (1 - Tdap) [code = DTAP/TDAP/TD VACCINES (1 - Tdap)] [facility] Future Scheduled Test 1991-01-14 00:00:00 DTAP/TDAP/TD VACCINES (1 - Tdap) [code = DTAP/TDAP/TD VACCINES (1 - Tdap)] [facility] Future Scheduled Test 1991-01-14 00:00:00 DTAP/TDAP/TD VACCINES (1 - Tdap) [code = DTAP/TDAP/TD VACCINES (1 - Tdap)] [facility] Future Scheduled Test 1991-01-14 00:00:00 DTAP/TDAP/TD VACCINES (1 - Tdap) [code = DTAP/TDAP/TD VACCINES (1 - Tdap)] [facility] Future Scheduled Test 1991-01-14 00:00:00 DTAP/TDAP/TD VACCINES (1 - Tdap) [code = DTAP/TDAP/TD VACCINES (1 - Tdap)] [facility] Future Scheduled Test 1991-01-14 00:00:00 DTAP/TDAP/TD VACCINES (1 - Tdap) [code = DTAP/TDAP/TD VACCINES (1 - Tdap)] [facility] Future Scheduled Test 1991-01-14 00:00:00 DTAP/TDAP/TD VACCINES (1 - Tdap) [code = DTAP/TDAP/TD VACCINES (1 - Tdap)] [facility] Future Scheduled Test 1991-01-14 00:00:00 DTAP/TDAP/TD VACCINES (1 - Tdap) [code = DTAP/TDAP/TD VACCINES (1 - Tdap)] [facility] Future Scheduled Test 1991-01-14 00:00:00 DTAP/TDAP/TD VACCINES (1 - Tdap) [code = DTAP/TDAP/TD VACCINES (1 - Tdap)] [facility] Future Scheduled Test 1991-01-14 00:00:00 DTAP/TDAP/TD VACCINES (1 - Tdap) [code = DTAP/TDAP/TD VACCINES (1 - Tdap)] [facility] Future Scheduled Test 1991-01-14 00:00:00 DTAP/TDAP/TD VACCINES (1 - Tdap) [code = DTAP/TDAP/TD VACCINES (1 - Tdap)] [facility] Future Scheduled Test 1991-01-14 00:00:00 DTAP/TDAP/TD VACCINES (1 - Tdap) [code = DTAP/TDAP/TD VACCINES (1 - Tdap)] [facility] Future Scheduled Test 1991-01-14 00:00:00 DTAP/TDAP/TD VACCINES (1 - Tdap) [code = DTAP/TDAP/TD VACCINES (1 - Tdap)] [facility] Future Scheduled Test 1991-01-14 00:00:00 DTAP/TDAP/TD VACCINES (1 - Tdap) [code = DTAP/TDAP/TD VACCINES (1 - Tdap)] [facility] Future Scheduled Test 1991-01-14 00:00:00 DTAP/TDAP/TD VACCINES (1 - Tdap) [code = DTAP/TDAP/TD VACCINES (1 - Tdap)] [facility] Future Scheduled Test 1991-01-14 00:00:00 DTAP/TDAP/TD VACCINES (1 - Tdap) [code = DTAP/TDAP/TD VACCINES (1 - Tdap)] [facility] Future Scheduled Test 1991-01-14 00:00:00 DTAP/TDAP/TD VACCINES (1 - Tdap) [code = DTAP/TDAP/TD VACCINES (1 - Tdap)] [facility] Future Scheduled Test 1991-01-14 00:00:00 DTAP/TDAP/TD VACCINES (1 - Tdap) [code = DTAP/TDAP/TD VACCINES (1 - Tdap)] [facility] Future Scheduled Test 1991-01-14 00:00:00 DTAP/TDAP/TD VACCINES (1 - Tdap) [code = DTAP/TDAP/TD VACCINES (1 - Tdap)] [facility] Future Scheduled Test 1991-01-14 00:00:00 DTAP/TDAP/TD VACCINES (1 - Tdap) [code = DTAP/TDAP/TD VACCINES (1 - Tdap)] [facility] Future Scheduled Test 1991-01-14 00:00:00 DTAP/TDAP/TD VACCINES (1 - Tdap) [code = DTAP/TDAP/TD VACCINES (1 - Tdap)] [facility] Future Scheduled Test 1991-01-14 00:00:00 DTAP/TDAP/TD VACCINES (1 - Tdap) [code = DTAP/TDAP/TD VACCINES (1 - Tdap)] [facility] Future Scheduled Test 1991-01-14 00:00:00 DTAP/TDAP/TD VACCINES (1 - Tdap) [code = DTAP/TDAP/TD VACCINES (1 - Tdap)] [facility] Future Scheduled Test 1991-01-14 00:00:00 DTAP/TDAP/TD VACCINES (1 - Tdap) [code = DTAP/TDAP/TD VACCINES (1 - Tdap)] [facility] Future Scheduled Test 1991-01-14 00:00:00 DTAP/TDAP/TD VACCINES (1 - Tdap) [code = DTAP/TDAP/TD VACCINES (1 - Tdap)] [facility] Future Scheduled Test 1991-01-14 00:00:00 DTAP/TDAP/TD VACCINES (1 - Tdap) [code = DTAP/TDAP/TD VACCINES (1 - Tdap)] [facility] Future Scheduled Test 1991-01-14 00:00:00 DTAP/TDAP/TD VACCINES (1 - Tdap) [code = DTAP/TDAP/TD VACCINES (1 - Tdap)] [facility] Future Scheduled Test 1990-01-14 00:00:00 HEPATITIS C SCREENING [code = HEPATITIS C SCREENING] [facility] Future Scheduled Test 1990-01-14 00:00:00 HEPATITIS C SCREENING [code = HEPATITIS C SCREENING] [facility] Future Scheduled Test 1990-01-14 00:00:00 HEPATITIS C SCREENING [code = HEPATITIS C SCREENING] [facility] Future Scheduled Test 1990-01-14 00:00:00 HEPATITIS C SCREENING [code = HEPATITIS C SCREENING] [facility] Future Scheduled Test 1990-01-14 00:00:00 HEPATITIS C SCREENING [code = HEPATITIS C SCREENING] [facility] Future Scheduled Test 1990-01-14 00:00:00 HEPATITIS C SCREENING [code = HEPATITIS C SCREENING] [facility] Future Scheduled Test 1990-01-14 00:00:00 HEPATITIS C SCREENING [code = HEPATITIS C SCREENING] [facility] Future Scheduled Test 1990-01-14 00:00:00 HEPATITIS C SCREENING [code = HEPATITIS C SCREENING] [facility] Future Scheduled Test 1990-01-14 00:00:00 HEPATITIS C SCREENING [code = HEPATITIS C SCREENING] [facility] Future Scheduled Test 1990-01-14 00:00:00 HEPATITIS C SCREENING [code = HEPATITIS C SCREENING] [facility] Future Scheduled Test 1990-01-14 00:00:00 HEPATITIS C SCREENING [code = HEPATITIS C SCREENING] [facility] Future Scheduled Test 1990-01-14 00:00:00 HEPATITIS C SCREENING [code = HEPATITIS C SCREENING] [facility] Future Scheduled Test 1990-01-14 00:00:00 HEPATITIS C SCREENING [code = HEPATITIS C SCREENING] [facility] Future Scheduled Test 1990-01-14 00:00:00 HEPATITIS C SCREENING [code = HEPATITIS C SCREENING] [facility] Future Scheduled Test 1990-01-14 00:00:00 HEPATITIS C SCREENING [code = HEPATITIS C SCREENING] [facility] Future Scheduled Test 1990-01-14 00:00:00 HEPATITIS C SCREENING [code = HEPATITIS C SCREENING] [facility] Future Scheduled Test 1990-01-14 00:00:00 HEPATITIS C SCREENING [code = HEPATITIS C SCREENING] [facility] Future Scheduled Test 1990-01-14 00:00:00 HEPATITIS C SCREENING [code = HEPATITIS C SCREENING] [facility] Future Scheduled Test 1990-01-14 00:00:00 HEPATITIS C SCREENING [code = HEPATITIS C SCREENING] [facility] Future Scheduled Test 1990-01-14 00:00:00 HEPATITIS C SCREENING [code = HEPATITIS C SCREENING] [facility] Future Scheduled Test 1990-01-14 00:00:00 HEPATITIS C SCREENING [code = HEPATITIS C SCREENING] [facility] Future Scheduled Test 1990-01-14 00:00:00 HEPATITIS C SCREENING [code = HEPATITIS C SCREENING] [facility] Future Scheduled Test 1990-01-14 00:00:00 HEPATITIS C SCREENING [code = HEPATITIS C SCREENING] [facility] Future Scheduled Test 1990-01-14 00:00:00 HEPATITIS C SCREENING [code = HEPATITIS C SCREENING] [facility] Future Scheduled Test 1990-01-14 00:00:00 HEPATITIS C SCREENING [code = HEPATITIS C SCREENING] [facility] Future Scheduled Test 1990-01-14 00:00:00 HEPATITIS C SCREENING [code = HEPATITIS C SCREENING] [facility] Future Scheduled Test 1990-01-14 00:00:00 HEPATITIS C SCREENING [code = HEPATITIS C SCREENING] [facility] Future Scheduled Test 1990-01-14 00:00:00 HEPATITIS C SCREENING [code = HEPATITIS C SCREENING] [facility] Future Scheduled Test 1990-01-14 00:00:00 HEPATITIS C SCREENING [code = HEPATITIS C SCREENING] [facility] Future Scheduled Test 1990-01-14 00:00:00 HEPATITIS C SCREENING [code = HEPATITIS C SCREENING] [facility] Future Scheduled Test 1990-01-14 00:00:00 HEPATITIS C SCREENING [code = HEPATITIS C SCREENING] [facility] Future Scheduled Test 1987-01-14 00:00:00 Human immunodeficiency virus screening (procedure) [code = [id number]] [facility] Future Scheduled Test 1987-01-14 00:00:00 Human immunodeficiency virus screening (procedure) [code = 624626335] [facility] Future Scheduled Test 1984 00:00:00 Tobacco Cessation Counseling and Screening (12+) [code = Tobacco Cessation Counseling and Screening (12+)] [facility] Future Scheduled Test 1984 00:00:00 Tobacco Cessation Counseling and Screening (12+) [code = Tobacco Cessation Counseling and Screening (12+)] [facility] Future Scheduled Test 1984 00:00:00 Tobacco Cessation Counseling and Screening (12+) [code = Tobacco Cessation Counseling and Screening (12+)] [facility] Future Scheduled Test 1984 00:00:00 Tobacco Cessation Counseling and Screening (12+) [code = Tobacco Cessation Counseling and Screening (12+)] [facility] Future Scheduled Test 1984 00:00:00 Tobacco Cessation Counseling and Screening (12+) [code = Tobacco Cessation Counseling and Screening (12+)] [facility] Future Scheduled Test 1984 00:00:00 Tobacco Cessation Counseling and Screening (12+) [code = Tobacco Cessation Counseling and Screening (12+)] [facility] Future Scheduled Test 1984 00:00:00 Tobacco Cessation Counseling and Screening (12+) [code = Tobacco Cessation Counseling and Screening (12+)] [facility] Future Scheduled Test 1984 00:00:00 Tobacco Cessation Counseling and Screening (12+) [code = Tobacco Cessation Counseling and Screening (12+)] [facility] Future Scheduled Test 1984 00:00:00 Tobacco Cessation Counseling and Screening (12+) [code = Tobacco Cessation Counseling and Screening (12+)] [facility] Future Scheduled Test 1984 00:00:00 Tobacco Cessation Counseling and Screening (12+) [code = Tobacco Cessation Counseling and Screening (12+)] [facility] Future Scheduled Test 1984 00:00:00 Tobacco Cessation Counseling and Screening (12+) [code = Tobacco Cessation Counseling and Screening (12+)] [facility] Future Scheduled Test 1984 00:00:00 Tobacco Cessation Counseling and Screening (12+) [code = Tobacco Cessation Counseling and Screening (12+)] [facility] Future Scheduled Test 1984 00:00:00 Tobacco Cessation Counseling and Screening (12+) [code = Tobacco Cessation Counseling and Screening (12+)] [facility] Future Scheduled Test 1984 00:00:00 Tobacco Cessation Counseling and Screening (12+) [code = Tobacco Cessation Counseling and Screening (12+)] [facility] Future Scheduled Test 1984 00:00:00 Tobacco Cessation Counseling and Screening (12+) [code = Tobacco Cessation Counseling and Screening (12+)] [facility] Future Scheduled Test 1984 00:00:00 Tobacco Cessation Counseling and Screening (12+) [code = Tobacco Cessation Counseling and Screening (12+)] [facility] Future Scheduled Test 1984 00:00:00 Tobacco Cessation Counseling and Screening (12+) [code = Tobacco Cessation Counseling and Screening (12+)] [facility] Future Scheduled Test 1984 00:00:00 Tobacco Cessation Counseling and Screening (12+) [code = Tobacco Cessation Counseling and Screening (12+)] [facility] Future Scheduled Test 1984 00:00:00 Tobacco Cessation Counseling and Screening (12+) [code = Tobacco Cessation Counseling and Screening (12+)] [facility] Future Scheduled Test 1984 00:00:00 Tobacco Cessation Counseling and Screening (12+) [code = Tobacco Cessation Counseling and Screening (12+)] [facility] Future Scheduled Test 1984 00:00:00 Tobacco Cessation Counseling and Screening (12+) [code = Tobacco Cessation Counseling and Screening (12+)] [facility] Future Scheduled Test 1984 00:00:00 Tobacco Cessation Counseling and Screening (12+) [code = Tobacco Cessation Counseling and Screening (12+)] [facility] Future Scheduled Test 1984 00:00:00 Tobacco Cessation Counseling and Screening (12+) [code = Tobacco Cessation Counseling and Screening (12+)] [facility] Future Scheduled Test 1972 00:00:00 Screening for malignant neoplasm of breast (procedure) [code = 988202114] [facility] Future Scheduled Test 1972 00:00:00 CT Colonography (combo) [code = CT Colonography (combo)] [facility] Future Scheduled Test 1972 00:00:00 Screening for malignant neoplasm of colon (procedure) [code = 365649135] [facility] Future Scheduled Test 1972 00:00:00 Screening for malignant neoplasm of colon (procedure) [code = 624166277] [facility] Future Scheduled Test 1972 00:00:00 Screening for malignant neoplasm of colon (procedure) [code = 301478781] [facility] Future Scheduled Test 1972 00:00:00 Screening for malignant neoplasm of colon (procedure) [code = 701805467] [facility] Future Scheduled Test 1972 00:00:00 Sigmoidoscopy [code = Sigmoidoscopy] [facility] Future Scheduled Test 1972 00:00:00 Screening for malignant neoplasm of breast (procedure) [code = 844777344] [facility] Future Scheduled Test 1972 00:00:00 CT Colonography (combo) [code = CT Colonography (combo)] [facility] Future Scheduled Test 1972 00:00:00 Screening for malignant neoplasm of colon (procedure) [code = 925267029] [facility] Future Scheduled Test 1972 00:00:00 Screening for malignant neoplasm of colon (procedure) [code = 592628543] [facility] Future Scheduled Test 1972 00:00:00 Screening for malignant neoplasm of colon (procedure) [code = 395020184] [facility] Future Scheduled Test 1972 00:00:00 Screening for malignant neoplasm of colon (procedure) [code = 827690556] [facility] Future Scheduled Test 1972 00:00:00 Sigmoidoscopy [code = Sigmoidoscopy] [facility] Future Scheduled Test 1972 00:00:00 Screening for malignant neoplasm of breast (procedure) [code = 534979130] [facility] Future Scheduled Test 1972 00:00:00 CT Colonography (combo) [code = CT Colonography (combo)] [facility] Future Scheduled Test 1972 00:00:00 Screening for malignant neoplasm of colon (procedure) [code = 728865051] [facility] Future Scheduled Test 1972 00:00:00 Screening for malignant neoplasm of colon (procedure) [code = 731051907] [facility] Future Scheduled Test 1972 00:00:00 Screening for malignant neoplasm of colon (procedure) [code = 212075411] [facility] Future Scheduled Test 1972 00:00:00 Screening for malignant neoplasm of colon (procedure) [code = 734624445] [facility] Future Scheduled Test 1972 00:00:00 Sigmoidoscopy [code = Sigmoidoscopy] [facility] Future Scheduled Test 1972 00:00:00 Screening for malignant neoplasm of breast (procedure) [code = 650377241] [facility] Future Scheduled Test 1972 00:00:00 CT Colonography (combo) [code = CT Colonography (combo)] [facility] Future Scheduled Test 1972 00:00:00 Screening for malignant neoplasm of colon (procedure) [code = 788910835] [facility] Future Scheduled Test 1972 00:00:00 Screening for malignant neoplasm of colon (procedure) [code = 691480748] [facility] Future Scheduled Test 1972 00:00:00 Screening for malignant neoplasm of colon (procedure) [code = 956799282] [facility] Future Scheduled Test 1972 00:00:00 Screening for malignant neoplasm of colon (procedure) [code = 403697113] [facility] Future Scheduled Test 1972 00:00:00 Sigmoidoscopy [code = Sigmoidoscopy] [facility] Future Scheduled Test 1972 00:00:00 Screening for malignant neoplasm of breast (procedure) [code = 767528506] [facility] Future Scheduled Test 1972 00:00:00 CT Colonography (combo) [code = CT Colonography (combo)] [facility] Future Scheduled Test 1972 00:00:00 Screening for malignant neoplasm of colon (procedure) [code = 993884351] [facility] Future Scheduled Test 1972 00:00:00 Screening for malignant neoplasm of colon (procedure) [code = 497159682] [facility] Future Scheduled Test 1972 00:00:00 Screening for malignant neoplasm of colon (procedure) [code = 440619389] [facility] Future Scheduled Test 1972 00:00:00 Screening for malignant neoplasm of colon (procedure) [code = 756599692] [facility] Future Scheduled Test 1972 00:00:00 Sigmoidoscopy [code = Sigmoidoscopy] [facility] Future Scheduled Test 1972 00:00:00 Screening for malignant neoplasm of breast (procedure) [code = 042871082] [facility] Future Scheduled Test 1972 00:00:00 CT Colonography (combo) [code = CT Colonography (combo)] [facility] Future Scheduled Test 1972 00:00:00 Screening for malignant neoplasm of colon (procedure) [code = 442146615] [facility] Future Scheduled Test 1972 00:00:00 Screening for malignant neoplasm of colon (procedure) [code = 828678887] [facility] Future Scheduled Test 1972 00:00:00 Screening for malignant neoplasm of colon (procedure) [code = 541186598] [facility] Future Scheduled Test 1972 00:00:00 Screening for malignant neoplasm of colon (procedure) [code = 385301359] [facility] Future Scheduled Test 1972 00:00:00 Sigmoidoscopy [code = Sigmoidoscopy] [facility] Future Scheduled Test 1972 00:00:00 Screening for malignant neoplasm of breast (procedure) [code = 474956403] [facility] Future Scheduled Test 1972 00:00:00 CT Colonography (combo) [code = CT Colonography (combo)] [facility] Future Scheduled Test 1972 00:00:00 Screening for malignant neoplasm of colon (procedure) [code = 855487772] [facility] Future Scheduled Test 1972 00:00:00 Screening for malignant neoplasm of colon (procedure) [code = 695095198] [facility] Future Scheduled Test 1972 00:00:00 Screening for malignant neoplasm of colon (procedure) [code = 456776442] [facility] Future Scheduled Test 1972 00:00:00 Screening for malignant neoplasm of colon (procedure) [code = 397357008] [facility] Future Scheduled Test 1972 00:00:00 Sigmoidoscopy [code = Sigmoidoscopy] [facility] Future Scheduled Test 1972 00:00:00 Screening for malignant neoplasm of breast (procedure) [code = 241582911] [facility] Future Scheduled Test 1972 00:00:00 CT Colonography (combo) [code = CT Colonography (combo)] [facility] Future Scheduled Test 1972 00:00:00 Screening for malignant neoplasm of colon (procedure) [code = 402395013] [facility] Future Scheduled Test 1972 00:00:00 Screening for malignant neoplasm of colon (procedure) [code = 665659618] [facility] Future Scheduled Test 1972 00:00:00 Screening for malignant neoplasm of colon (procedure) [code = 610981516] [facility] Future Scheduled Test 1972 00:00:00 Screening for malignant neoplasm of colon (procedure) [code = 043767955] [facility] Future Scheduled Test 1972 00:00:00 Sigmoidoscopy [code = Sigmoidoscopy] [facility] Future Scheduled Test 1972 00:00:00 Screening for malignant neoplasm of breast (procedure) [code = 183531464] [facility] Future Scheduled Test 1972 00:00:00 CT Colonography (combo) [code = CT Colonography (combo)] [facility] Future Scheduled Test 1972 00:00:00 Screening for malignant neoplasm of colon (procedure) [code = 346944214] [facility] Future Scheduled Test 1972 00:00:00 Screening for malignant neoplasm of colon (procedure) [code = 031502177] [facility] Future Scheduled Test 1972 00:00:00 Screening for malignant neoplasm of colon (procedure) [code = 831081470] [facility] Future Scheduled Test 1972 00:00:00 Screening for malignant neoplasm of colon (procedure) [code = 361652631] [facility] Future Scheduled Test 1972 00:00:00 Sigmoidoscopy [code = Sigmoidoscopy] [facility] Future Scheduled Test 1972 00:00:00 Screening for malignant neoplasm of breast (procedure) [code = 496473686] [facility] Future Scheduled Test 1972 00:00:00 CT Colonography (combo) [code = CT Colonography (combo)] [facility] Future Scheduled Test 1972 00:00:00 Screening for malignant neoplasm of colon (procedure) [code = 657605767] [facility] Future Scheduled Test 1972 00:00:00 Screening for malignant neoplasm of colon (procedure) [code = 315789010] [facility] Future Scheduled Test 1972 00:00:00 Screening for malignant neoplasm of colon (procedure) [code = 738910598] [facility] Future Scheduled Test 1972 00:00:00 Screening for malignant neoplasm of colon (procedure) [code = 828255999] [facility] Future Scheduled Test 1972 00:00:00 Sigmoidoscopy [code = Sigmoidoscopy] [facility] Future Scheduled Test 1972 00:00:00 Screening for malignant neoplasm of breast (procedure) [code = 747620065] [facility] Future Scheduled Test 1972 00:00:00 CT Colonography (combo) [code = CT Colonography (combo)] [facility] Future Scheduled Test 1972 00:00:00 Screening for malignant neoplasm of colon (procedure) [code = 114144573] [facility] Future Scheduled Test 1972 00:00:00 Screening for malignant neoplasm of colon (procedure) [code = 178350137] [facility] Future Scheduled Test 1972 00:00:00 Screening for malignant neoplasm of colon (procedure) [code = 310007083] [facility] Future Scheduled Test 1972 00:00:00 Screening for malignant neoplasm of colon (procedure) [code = 866155648] [facility] Future Scheduled Test 1972 00:00:00 Sigmoidoscopy [code = Sigmoidoscopy] [facility] Future Scheduled Test 1972 00:00:00 Screening for malignant neoplasm of breast (procedure) [code = 290148735] [facility] Future Scheduled Test 1972 00:00:00 CT Colonography (combo) [code = CT Colonography (combo)] [facility] Future Scheduled Test 1972 00:00:00 Screening for malignant neoplasm of colon (procedure) [code = 946342172] [facility] Future Scheduled Test 1972 00:00:00 Screening for malignant neoplasm of colon (procedure) [code = 815815776] [facility] Future Scheduled Test 1972 00:00:00 Screening for malignant neoplasm of colon (procedure) [code = 220487980] [facility] Future Scheduled Test 1972 00:00:00 Screening for malignant neoplasm of colon (procedure) [code = 796611611] [facility] Future Scheduled Test 1972 00:00:00 Sigmoidoscopy [code = Sigmoidoscopy] [facility] Future Scheduled Test 1972 00:00:00 Screening for malignant neoplasm of breast (procedure) [code = 510163136] [facility] Future Scheduled Test 1972 00:00:00 CT Colonography (combo) [code = CT Colonography (combo)] [facility] Future Scheduled Test 1972 00:00:00 Screening for malignant neoplasm of colon (procedure) [code = 668507819] [facility] Future Scheduled Test 1972 00:00:00 Screening for malignant neoplasm of colon (procedure) [code = 107146698] [facility] Future Scheduled Test 1972 00:00:00 Screening for malignant neoplasm of colon (procedure) [code = 168307928] [facility] Future Scheduled Test 1972 00:00:00 Screening for malignant neoplasm of colon (procedure) [code = 130396198] [facility] Future Scheduled Test 1972 00:00:00 Sigmoidoscopy [code = Sigmoidoscopy] [facility] Future Scheduled Test 1972 00:00:00 Screening for malignant neoplasm of breast (procedure) [code = 013368020] [facility] Future Scheduled Test 1972 00:00:00 CT Colonography (combo) [code = CT Colonography (combo)] [facility] Future Scheduled Test 1972 00:00:00 Screening for malignant neoplasm of colon (procedure) [code = 685280988] [facility] Future Scheduled Test 1972 00:00:00 Screening for malignant neoplasm of colon (procedure) [code = 913341727] [facility] Future Scheduled Test 1972 00:00:00 Screening for malignant neoplasm of colon (procedure) [code = 701951780] [facility] Future Scheduled Test 1972 00:00:00 Screening for malignant neoplasm of colon (procedure) [code = 697077633] [facility] Future Scheduled Test 1972 00:00:00 Sigmoidoscopy [code = Sigmoidoscopy] [facility] Future Scheduled Test 1972 00:00:00 Screening for malignant neoplasm of breast (procedure) [code = 567587301] [facility] Future Scheduled Test 1972 00:00:00 CT Colonography (combo) [code = CT Colonography (combo)] [facility] Future Scheduled Test 1972 00:00:00 Screening for malignant neoplasm of colon (procedure) [code = 926247081] [facility] Future Scheduled Test 1972 00:00:00 Screening for malignant neoplasm of colon (procedure) [code = 815543191] [facility] Future Scheduled Test 1972 00:00:00 Screening for malignant neoplasm of colon (procedure) [code = 235656720] [facility] Future Scheduled Test 1972 00:00:00 Screening for malignant neoplasm of colon (procedure) [code = 520357684] [facility] Future Scheduled Test 1972 00:00:00 Sigmoidoscopy [code = Sigmoidoscopy] [facility] Future Scheduled Test 1972 00:00:00 Screening for malignant neoplasm of breast (procedure) [code = 701441188] [facility] Future Scheduled Test 1972 00:00:00 CT Colonography (combo) [code = CT Colonography (combo)] [facility] Future Scheduled Test 1972 00:00:00 Screening for malignant neoplasm of colon (procedure) [code = 289951002] [facility] Future Scheduled Test 1972 00:00:00 Screening for malignant neoplasm of colon (procedure) [code = 563201018] [facility] Future Scheduled Test 1972 00:00:00 Screening for malignant neoplasm of colon (procedure) [code = 701779836] [facility] Future Scheduled Test 1972 00:00:00 Screening for malignant neoplasm of colon (procedure) [code = 350757029] [facility] Future Scheduled Test 1972 00:00:00 Sigmoidoscopy [code = Sigmoidoscopy] [facility] Future Scheduled Test 1972 00:00:00 Screening for malignant neoplasm of breast (procedure) [code = 196149042] [facility] Future Scheduled Test 1972 00:00:00 CT Colonography (combo) [code = CT Colonography (combo)] [facility] Future Scheduled Test 1972 00:00:00 Screening for malignant neoplasm of colon (procedure) [code = 636886196] [facility] Future Scheduled Test 1972 00:00:00 Screening for malignant neoplasm of colon (procedure) [code = 555464811] [facility] Future Scheduled Test 1972 00:00:00 Screening for malignant neoplasm of colon (procedure) [code = 576067871] [facility] Future Scheduled Test 1972 00:00:00 Screening for malignant neoplasm of colon (procedure) [code = 811377672] [facility] Future Scheduled Test 1972 00:00:00 Sigmoidoscopy [code = Sigmoidoscopy] [facility] Future Scheduled Test 1972 00:00:00 Screening for malignant neoplasm of breast (procedure) [code = 444570495] [facility] Future Scheduled Test 1972 00:00:00 CT Colonography (combo) [code = CT Colonography (combo)] [facility] Future Scheduled Test 1972 00:00:00 Screening for malignant neoplasm of colon (procedure) [code = 860231414] [facility] Future Scheduled Test 1972 00:00:00 Screening for malignant neoplasm of colon (procedure) [code = 953119144] [facility] Future Scheduled Test 1972 00:00:00 Screening for malignant neoplasm of colon (procedure) [code = 170676665] [facility] Future Scheduled Test 1972 00:00:00 Screening for malignant neoplasm of colon (procedure) [code = 892018594] [facility] Future Scheduled Test 1972 00:00:00 Sigmoidoscopy [code = Sigmoidoscopy] [facility] Future Scheduled Test 1972 00:00:00 Screening for malignant neoplasm of breast (procedure) [code = 083540859] [facility] Future Scheduled Test 1972 00:00:00 CT Colonography (combo) [code = CT Colonography (combo)] [facility] Future Scheduled Test 1972 00:00:00 Screening for malignant neoplasm of colon (procedure) [code = 163565408] [facility] Future Scheduled Test 1972 00:00:00 Screening for malignant neoplasm of colon (procedure) [code = 626013456] [facility] Future Scheduled Test 1972 00:00:00 Screening for malignant neoplasm of colon (procedure) [code = 327558306] [facility] Future Scheduled Test 1972 00:00:00 Screening for malignant neoplasm of colon (procedure) [code = 130546694] [facility] Future Scheduled Test 1972 00:00:00 Sigmoidoscopy [code = Sigmoidoscopy] [facility] Future Scheduled Test 1972 00:00:00 Screening for malignant neoplasm of breast (procedure) [code = 522752826] [facility] Future Scheduled Test 1972 00:00:00 CT Colonography (combo) [code = CT Colonography (combo)] [facility] Future Scheduled Test 1972 00:00:00 Screening for malignant neoplasm of colon (procedure) [code = 325890473] [facility] Future Scheduled Test 1972 00:00:00 Screening for malignant neoplasm of colon (procedure) [code = 968217918] [facility] Future Scheduled Test 1972 00:00:00 Screening for malignant neoplasm of colon (procedure) [code = 303350368] [facility] Future Scheduled Test 1972 00:00:00 Screening for malignant neoplasm of colon (procedure) [code = 836319517] [facility] Future Scheduled Test 1972 00:00:00 Sigmoidoscopy [code = Sigmoidoscopy] [facility] Future Scheduled Test 1972 00:00:00 Screening for malignant neoplasm of breast (procedure) [code = 976844172] [facility] Future Scheduled Test 1972 00:00:00 CT Colonography (combo) [code = CT Colonography (combo)] [facility] Future Scheduled Test 1972 00:00:00 Screening for malignant neoplasm of colon (procedure) [code = 662713681] [facility] Future Scheduled Test 1972 00:00:00 Screening for malignant neoplasm of colon (procedure) [code = 336601113] [facility] Future Scheduled Test 1972 00:00:00 Screening for malignant neoplasm of colon (procedure) [code = 483771032] [facility] Future Scheduled Test 1972 00:00:00 Screening for malignant neoplasm of colon (procedure) [code = 251960329] [facility] Future Scheduled Test 1972 00:00:00 Sigmoidoscopy [code = Sigmoidoscopy] [facility] Future Scheduled Test 1972 00:00:00 Screening for malignant neoplasm of breast (procedure) [code = 458939942] [facility] Future Scheduled Test 1972 00:00:00 CT Colonography (combo) [code = CT Colonography (combo)] [facility] Future Scheduled Test 1972 00:00:00 Screening for malignant neoplasm of colon (procedure) [code = 941444898] [facility] Future Scheduled Test 1972 00:00:00 Screening for malignant neoplasm of colon (procedure) [code = 285243413] [facility] Future Scheduled Test 1972 00:00:00 Screening for malignant neoplasm of colon (procedure) [code = 678832876] [facility] Future Scheduled Test 1972 00:00:00 Screening for malignant neoplasm of colon (procedure) [code = 646858111] [facility] Future Scheduled Test 1972 00:00:00 Sigmoidoscopy [code = Sigmoidoscopy] [facility] Future Scheduled Test 1972 00:00:00 Screening for malignant neoplasm of breast (procedure) [code = 649788949] [facility] Future Scheduled Test 1972 00:00:00 CT Colonography (combo) [code = CT Colonography (combo)] [facility] Future Scheduled Test 1972 00:00:00 Screening for malignant neoplasm of colon (procedure) [code = 125721323] [facility] Future Scheduled Test 1972 00:00:00 Screening for malignant neoplasm of colon (procedure) [code = 932409265] [facility] Future Scheduled Test 1972 00:00:00 Screening for malignant neoplasm of colon (procedure) [code = 810896194] [facility] Future Scheduled Test 1972 00:00:00 Screening for malignant neoplasm of colon (procedure) [code = 797116728] [facility] Future Scheduled Test 1972 00:00:00 Sigmoidoscopy [code = Sigmoidoscopy] [facility] Future Scheduled Test 1972 00:00:00 Screening for malignant neoplasm of breast (procedure) [code = 295879346] [facility] Future Scheduled Test 1972 00:00:00 CT Colonography (combo) [code = CT Colonography (combo)] [facility] Future Scheduled Test 1972 00:00:00 Screening for malignant neoplasm of colon (procedure) [code = 119310478] [facility] Future Scheduled Test 1972 00:00:00 Screening for malignant neoplasm of colon (procedure) [code = 427636273] [facility] Future Scheduled Test 1972 00:00:00 Screening for malignant neoplasm of colon (procedure) [code = 541589585] [facility] Future Scheduled Test 1972 00:00:00 Screening for malignant neoplasm of colon (procedure) [code = 650609098] [facility] Future Scheduled Test 1972 00:00:00 Sigmoidoscopy [code = Sigmoidoscopy] [facility] Future Scheduled Test 1972 00:00:00 Screening for malignant neoplasm of breast (procedure) [code = 946117649] [facility] Future Scheduled Test 1972 00:00:00 CT Colonography (combo) [code = CT Colonography (combo)] [facility] Future Scheduled Test 1972 00:00:00 Screening for malignant neoplasm of colon (procedure) [code = 631884300] [facility] Future Scheduled Test 1972 00:00:00 Screening for malignant neoplasm of colon (procedure) [code = 637983656] [facility] Future Scheduled Test 1972 00:00:00 Screening for malignant neoplasm of colon (procedure) [code = 568838150] [facility] Future Scheduled Test 1972 00:00:00 Screening for malignant neoplasm of colon (procedure) [code = 088783212] [facility] Future Scheduled Test 1972 00:00:00 Sigmoidoscopy [code = Sigmoidoscopy] [facility] Future Scheduled Test 1972 00:00:00 Screening for malignant neoplasm of breast (procedure) [code = 916254503] [facility] Future Scheduled Test 1972 00:00:00 CT Colonography (combo) [code = CT Colonography (combo)] [facility] Future Scheduled Test 1972 00:00:00 Screening for malignant neoplasm of colon (procedure) [code = 094277126] [facility] Future Scheduled Test 1972 00:00:00 Screening for malignant neoplasm of colon (procedure) [code = 715823616] [facility] Future Scheduled Test 1972 00:00:00 Screening for malignant neoplasm of colon (procedure) [code = 066560527] [facility] Future Scheduled Test 1972 00:00:00 Screening for malignant neoplasm of colon (procedure) [code = 825533223] [facility] Future Scheduled Test 1972 00:00:00 Sigmoidoscopy [code = Sigmoidoscopy] [facility] Future Scheduled Test 1972 00:00:00 Screening for malignant neoplasm of breast (procedure) [code = 613445313] [facility] Future Scheduled Test 1972 00:00:00 CT Colonography (combo) [code = CT Colonography (combo)] [facility] Future Scheduled Test 1972 00:00:00 Screening for malignant neoplasm of colon (procedure) [code = 458445637] [facility] Future Scheduled Test 1972 00:00:00 Screening for malignant neoplasm of colon (procedure) [code = 772228726] [facility] Future Scheduled Test 1972 00:00:00 Screening for malignant neoplasm of colon (procedure) [code = 886553567] [facility] Future Scheduled Test 1972 00:00:00 Screening for malignant neoplasm of colon (procedure) [code = 840249178] [facility] Future Scheduled Test 1972 00:00:00 Sigmoidoscopy [code = Sigmoidoscopy] [facility] Future Scheduled Test 1972 00:00:00 Screening for malignant neoplasm of breast (procedure) [code = 018238149] [facility] Future Scheduled Test 1972 00:00:00 CT Colonography (combo) [code = CT Colonography (combo)] [facility] Future Scheduled Test 1972 00:00:00 Screening for malignant neoplasm of colon (procedure) [code = 263314654] [facility] Future Scheduled Test 1972 00:00:00 Screening for malignant neoplasm of colon (procedure) [code = 730055561] [facility] Future Scheduled Test 1972 00:00:00 Screening for malignant neoplasm of colon (procedure) [code = 968586760] [facility] Future Scheduled Test 1972 00:00:00 Screening for malignant neoplasm of colon (procedure) [code = 289540411] [facility] Future Scheduled Test 1972 00:00:00 Sigmoidoscopy [code = Sigmoidoscopy] [facility] Future Scheduled Test 1972 00:00:00 Screening for malignant neoplasm of breast (procedure) [code = 556390810] [facility] Future Scheduled Test 1972 00:00:00 CT Colonography (combo) [code = CT Colonography (combo)] [facility] Future Scheduled Test 1972 00:00:00 Screening for malignant neoplasm of colon (procedure) [code = 259709980] [facility] Future Scheduled Test 1972 00:00:00 Screening for malignant neoplasm of colon (procedure) [code = 031024493] [facility] Future Scheduled Test 1972 00:00:00 Screening for malignant neoplasm of colon (procedure) [code = 957258861] [facility] Future Scheduled Test 1972 00:00:00 Screening for malignant neoplasm of colon (procedure) [code = 723667566] [facility] Future Scheduled Test 1972 00:00:00 Sigmoidoscopy [code = Sigmoidoscopy] [facility] Future Scheduled Test 1972 00:00:00 Screening for malignant neoplasm of breast (procedure) [code = 240613346] [facility] Future Scheduled Test 1972 00:00:00 CT Colonography (combo) [code = CT Colonography (combo)] [facility] Future Scheduled Test 1972 00:00:00 Screening for malignant neoplasm of colon (procedure) [code = 392651480] [facility] Future Scheduled Test 1972 00:00:00 Screening for malignant neoplasm of colon (procedure) [code = 163335203] [facility] Future Scheduled Test 1972 00:00:00 Screening for malignant neoplasm of colon (procedure) [code = 345499455] [facility] Future Scheduled Test 1972 00:00:00 Screening for malignant neoplasm of colon (procedure) [code = 008597337] [facility] Future Scheduled Test 1972 00:00:00 Sigmoidoscopy [code = Sigmoidoscopy] [facility] Future Scheduled Test 1972 00:00:00 Screening for malignant neoplasm of breast (procedure) [code = 414344257] [facility] Future Scheduled Test 1972 00:00:00 CT Colonography (combo) [code = CT Colonography (combo)] [facility] Future Scheduled Test 1972 00:00:00 Screening for malignant neoplasm of colon (procedure) [code = 704369239] [facility] Future Scheduled Test 1972 00:00:00 Screening for malignant neoplasm of colon (procedure) [code = 289060031] [facility] Future Scheduled Test 1972 00:00:00 Screening for malignant neoplasm of colon (procedure) [code = 167585632] [facility] Future Scheduled Test 1972 00:00:00 Screening for malignant neoplasm of colon (procedure) [code = 450523251] [facility] Future Scheduled Test 1972 00:00:00 Sigmoidoscopy [code = Sigmoidoscopy] [facility] Goal Plan of Care Not e [code = 45346-3] Goal Plan of Care Not e [code = 63948-6] Goal Plan of Care Not e [code = 07723-3] Goal Plan of Care Not e [code = 32967-8] Goal Plan of Care Not e [code = 34694-4] Goal Plan of Care Not e [code = 73764-6] Goal Plan of Care Not e [code = 62154-0] Goal Plan of Care Not e [code = 21099-9] Goal Plan of Care Not e [code = 47660-8] Goal Plan of Care Not e [code = 05667-2] Goal Plan of Care Not e [code = 31545-1] Goal Plan of Care Not e [code = 46339-0] Goal Plan of Care Not e [code = 20188-0] Goal Plan of Care Not e [code = 95543-7] Goal Plan of Care Not e [code = 95097-7] Goal Plan of Care Not e [code = 75071-9] Goal Plan of Care Not e [code = 05233-9] Goal Plan of Care Not e [code = 20464-8] Goal Plan of Care Not e [code = 71242-6] Goal Plan of Care Not e [code = 97283-7] Goal Plan of Care Not e [code = 25287-0] Goal Plan of Care Not e [code = 20757-7] Goal Plan of Care Not e [code = 28465-3] Goal Plan of Care Not e [code = 26468-3] Goal Plan of Care Not e [code = 96586-0] Goal Plan of Care Not e [code = 50255-7] Goal Plan of Care Not e [code = 64337-9] Goal Plan of Care Not e [code = 67520-3] Goal Plan of Care Not e [code = 49487-0] Goal Plan of Care Not e [code = 34068-6] Goal Plan of Care Not e [code = 86975-5] Goal Plan of Care Not e [code = 16715-7] Goal Plan of Care Not e [code = 29903-6] Goal Plan of Care Not e [code = 84506-3] Goal Plan of Care Not e [code = 74007-8] Encounters Start Date/Time End Date/Time Encounter Type Admission Type [facility]ending [facility] Care Department Encounter ID Source 2023-06-16 09:32:36 Inpatient A[facility]E [facility]ICK[facility] [id number] [facility] 2023-06-16 09:32:09 Inpatient AYDEE DICK[facility] [id number] [facility] 2023-06-16 09:31:53 Inpatient AYDEE DICK[facility] [id number] [facility] 2023-06-14 07:46:02 Inpatient AYDEE DICKENS [facility] [id number] [facility] 2023-06-14 07:39:22 Inpatient AYDEE DICKENS [facility] [id number] [facility] 2023-06-14 06:38:38 [facility] [facility] [id number] [facility] 2023-06-13 13:44:18 Inpatient CARA MURPHY [facility] [id number] [facility] 2023-06-13 11:45:24 Inpatient AYDEE DICKENS [facility] [id number] [facility] 2023-05-08 11:21:00 Outpatient NICOLETTE GARCIAADAM [facility] Surgery [id number] [facility] 2023-04-01 14:26:29 Inpatient ER THOMAS LOZOYA [facility] [id number] [facility] 2023-03-31 09:24:52 Inpatient ER MARIAH ALDRIDGE [facility] [id number] [facility] 2021-05-20 18:48:04 Emergency [facility] [id number] [facility] 2021-05-20 12:43:40 Emergency [facility] [id number] [facility] 2023-06-13 03:43:00 2023-06-16 19:45:00 Inpatient ER AYDEE GO [facility] Internal Med [id number] [facility] 2023-06-13 03:43:00 2023-06-16 19:45:00 Hospital Encounter ER Jenifer Aydee Ashraf [facility] [id number] [facility] 2023-06-15 00:00:00 2023-06-15 00:00:00 Orders Only System, Provider Not In [facility] [id number] [facility] 2023-06-13 16:30:06 2023-06-13 16:30:06 Outpatient AYDEE DICKENS [facility] [id number] [facility] 2023-06-13 00:00:00 2023-06-13 00:00:00 Orders Only [facility] [id number] [facility] 2023-06-13 00:00:00 2023-06-13 00:00:00 Travel [facility] [id number] [facility] 2023-06-12 00:00:00 2023-06-12 00:00:00 Telephone Dallas Gomez [facility] [id number] [facility] 2023-05-28 06:45:00 2023-06-04 17:36:00 Inpatient ADAM BRANTLEY [facility] Surgery [id number] [facility] 2023-05-28 06:45:00 2023-06-04 17:36:00 Hospital Encounter Adam Brantley [facility] [id number] [facility] 2023-06-01 09:10:00 2023-06-01 13:00:00 Anesthesia Event Harry Newsome Mujtaba Ahmad [facility] [id number] [facility] 2023-06-01 09:00:00 2023-06-01 11:30:00 Surgery Adam Garcia Adi [facility] [id number] [facility] 2023-06-01 09:47:57 2023-06-01 09:47:57 [facility] [id number] 2023-06-01 09:40:34 2023-06-01 09:40:34 Outpatient ADAM BRANTLEY [facility] [id number] [facility] 2023-05-31 09:25:55 2023-05-31 23:59:00 Inpatient ADAM BRANTLEY [facility] [id number] [facility] 2023-05-31 09:00:00 2023-05-31 23:59:00 Hospital Encounter Adam Garcia Adi [facility] [id number] [facility] 2023-05-28 18:15:29 2023-05-28 18:15:29 Outpatient ADAM BRANTLEY [facility] [id number] [facility] 2023-05-28 08:30:00 2023-05-28 11:54:00 Anesthesia Event Yue Bui [facility] [id number] [facility] 2023-05-28 11:41:14 2023-05-28 11:41:14 [facility] [id number] [facility] 2023-05-28 08:30:00 2023-05-28 11:00:00 Surgery Adam Garcia Adi [facility] [id number] [facility] 2023-05-28 10:00:47 2023-05-28 10:00:47 Outpatient ADAM BRANTLEY [facility] [id number] [facility] 2023-05-28 00:00:00 2023-05-28 00:00:00 Travel [facility] [id number] [facility] 2023-05-26 09:00:00 2023-05-26 09:00:00 Hospital Encounter Adam Garcia [facility] [id number] [facility] 2023-05-26 00:00:00 2023-05-26 00:00:00 Outpatient ADAM BRANTLEY [facility] [id number] [facility] 2023-05-26 00:00:00 2023-05-26 00:00:00 Outpatient NICOLETTE [facility] [id number] [facility] 2023-05-26 00:00:00 2023-05-26 00:00:00 Travel [facility] [id number] [facility] 2023-05-13 11:43:03 2023-05-13 11:43:03 Outpatient [facility] 10[address] Adria Martínez 2023-05-12 00:00:00 2023-05-12 00:00:00 Orders Only Adam Garcia [facility] [id number] [facility] 2023-05-08 14:11:21 2023-05-08 14:11:21 Outpatient [facility] [id number] 2023-03-29 19:25:00 2023-04-02 20:48:00 [facility] [id number] [facility] 2023-03-29 19:25:00 2023-04-02 20:48:00 Hospital Encounter ER Connie Davey Shireen Kulkarni, Mrinalini Zade [facility] [id number] [facility] 2023-03-31 08:32:56 2023-03-31 00:00:00 Inpatient ER MARIAH ALDRIDGE [facility] [id number] [facility] 2023-03-30 10:24:12 2023-03-30 23:59:00 Outpatient ER CONNIE DAVEY [facility] [id number] [facility] 2023-03-30 09:40:00 2023-03-30 23:59:00 Hospital Encounter Connie Davey [facility] [id number] [facility] 2023-03-30 13:46:20 2023-03-30 13:46:20 Outpatient ER MARIAH ALDRIDGE [facility] [id number] [facility] 2023-03-30 13:46:14 2023-03-30 13:46:14 Outpatient ER MARIAH ALDRIDGE [facility] [id number] [facility] 2023-03-30 10:24:04 2023-03-30 10:24:04 Outpatient ER CONNIE DAVEY [facility] [id number] [facility] 2023-03-30 00:00:00 2023-03-30 00:00:00 Orders Only [facility] [id number] [facility] 2023-03-30 00:00:00 2023-03-30 00:00:00 Travel [facility] [id number] [facility] 2022-12-11 08:56:00 2022-12-11 15:29:00 Emergency X Alfonso ALVARADO [facility] [id number] [facility] 2022-12-11 08:56:00 2022-12-11 15:29:00 Emergency Alfonso Alvarado [address].840.114 350.1.13.10 4.2.7.2.686 [id number] [facility] 2022-11-17 17:25:00 2022-11-18 01:19:00 Emergency X RITCHIE WARREN [facility] ERT [id number] [facility] 2022-11-17 17:25:00 2022-11-18 01:19:00 Emergency Ritchie Warren E [facility] .840.114 350.1.13.10 4.2.7.2.686 [id number] [facility] 2022-08-28 00:00:00 2022-08-28 00:00:00 Patient Outreach Shy Beckman 1.2.840.114 350.1.13.10 4.2.7.2.686 [id number] [facility] 2022-08-20 00:00:00 2022-08-20 00:00:00 Patient Outreach Shy Beckman 1.2.840.114 350.1.13.10 4.2.7.2.686 [id number] [facility] 2022-08-02 17:30:00 2022-08-03 14:29:00 Hospital Encounter ER Halima Mendoza Kinjal M Ibe, Chimkama Ngozi Cynthia [facility] [id number] [facility] 2022-08-02 17:30:00 2022-08-03 14:29:00 Outpatient ER PARRISH WHEATLEY [facility] Neurology [id number] [facility] 2022-08-03 00:00:00 2022-08-03 00:00:00 Orders Only [facility] [id number] [facility] 2022-08-02 00:00:00 2022-08-02 00:00:00 Travel [facility] [id number] [facility] 2022-07-31 11:42:00 2022-08-01 21:48:00 Inpatient X LORENZA LOWRY [facility] SHEA [id number] [facility] 2022-07-31 11:42:00 2022-08-01 21:48:00 Hospital Encounter Sav Rondon Yaman [facility] 1..840.114 350.1.13.10 4.2.7.2.686 [id number] [facility] 2022-08-01 00:00:00 2022-08-01 00:00:00 Transition of Care Maria Teresa Nicole 1..840.114 350.1.13.10 4.2.7.2.686 [id number] [facility] 2022-07-28 14:41:38 2022-07-28 14:41:38 Outpatient [facility] [id number] Adria Martínez 2022-07-28 00:00:00 2022-07-28 00:00:00 Outpatient Visit [id number] 2022-07-24 13:24:40 2022-07-24 13:24:40 Outpatient [facility] [id number] Adria Martínez 2022-05-23 14:51:01 2022-05-23 14:51:01 Outpatient [facility] [id number] Adria Martínez 2022-05-23 00:00:00 2022-05-23 00:00:00 Outpatient Visit [id number] 2022-05-04 20:22:00 2022-05-08 14:44:00 Outpatient X CHANTEL BOJORQUEZ PABLO [facility] [id number] [facility] 2022-05-04 20:22:00 2022-05-08 14:44:00 [facility] 1..840.114 350.1.13.10 4.2.7.2.686 [id number] [facility] 2022-04-13 13:06:00 2022-04-15 15:00:00 Inpatient X SELINA MARTINES [facility] [id number] [facility] 2022-04-13 13:06:00 2022-04-15 15:00:00 Hospital Encounter Sapna Vargas Muhammad Zeeshan Chhabra, [facility] 1..114 350.1.13.10 4.2.7.2.686 [id number] [facility] 2022-02-19 10:20:00 2022-02-19 10:30:00 Imm/Inj Visit Vaccine, Cedar Dangelo [facility] [place] [facility] 1..114 350.1.13.10 4.2.7.2.686 [id number] [facility] 2022-02-19 10:20:00 2022-02-19 10:20:00 Outpatient R JOSE PAK [facility] [id number] [facility] 2021-11-23 15:07:00 2021-11-23 17:03:00 Emergency NICHELLE BRADY [facility] [id number] [facility] 2021-11-23 15:07:00 2021-11-23 17:03:00 Emergency Sav Rondon Folusho F [facility] 1..114 350.1.13.10 4.2.7.2.686 [id number] [facility] 2021-11-21 09:40:00 2021-11-21 09:40:00 Outpatient R [facility] [id number] [facility] 2021-05-24 09:30:00 2021-05-24 09:30:00 Outpatient R JOSE PAK [facility] [id number] [facility] 2021-05-24 08:47:51 2021-05-24 08:57:51 Imm/Inj Visit Vaccine, Cedar Dangelo Pak [place] [facility] 1..114 350.1.13.10 4.2.7.2.686 [id number] [facility] 2021-05-03 09:40:00 2021-05-03 09:59:35 Outpatient R PASHA, JOSE [facility] [id number] [facility] 2021-05-03 09:17:43 2021-05-03 09:59:35 Imm/Inj Visit Santos, Cedar PedJose Lyle [facility] 1.2840.114 350.1.13.10 4.2.7.2.686 [id number] [facility] 2021-04-16 00:00:00 2021-04-16 00:00:00 Orders Only Doctor Unassigned, [place] [facility] 1.2.840.114 350.1.13.10 4.2.7.2.686 [id number] [facility] 2021-03-17 00:00:00 2021-03-17 00:00:00 Telephone Miky Nava [facility] 1.2840.114 350.1.13.10 4.2.7.2.686 [id number] [facility] 2021-03-16 20:08:00 2021-03-16 23:24:00 Emergency Fabrice Chakraborty [facility] 1.2840.114 350.1.13.10 4.2.7.2.686 [id number] [facility] 2021-03-14 18:59:34 2021-03-14 20:19:13 Urgent Care Lydia Desouza, Attending [facility] 1.2840.114 350.1.13.10 4.2.7.2.686 [id number] [facility] 2021-03-14 19:00:00 2021-03-14 19:00:00 Outpatient R UNKNOWN, ATTENDING [facility] [id number] [facility] 2021-02-19 10:49:00 2021-02-19 14:48:00 Emergency Anali Monroy [facility] 1.2.840.114 350.1.13.10 4.2.7.2.686 [id number] [facility] 2019-03-09 00:00:00 2019-03-09 00:00:00 Yehuda Zimmerman [facility] 1.2.840.114 350.1.13.10 4.2.7.2.686 [id number] 2019-03-09 00:00:00 2019-03-09 00:00:00 Yehuda Zimmerman [facility] 1.2.840.114 350.1.13.10 4.2.7.2.686 [id number] [facility] Results Test Description Test Time Test Comments Results Result Co mments Source BLOOD [id number] 07:00:09* Test Item Value Reference Range Interpretation Comme nts CULTURE (BEAKER) (test code = 1095) No growth in 5 days T-SPOT(R).[id number] 18:35:00* Test Item Value Reference Range Interpretation Comme nts T-SPOT.TB (test code = 5418751) Negative SeeBelow Normal Value: Ne gativeA negative [...] CORRECTED FOR NEG CONTROL (test code = 1554552) 1 PANEL B SPOT COUNT CORRECTED FOR NEG CONTROL (test code = 2563416) 0 NEGATIVE CONTROL (test code = 9789302) Passed POSITIVE CONTROL (test code = 3627739) Passed LYNDSAY (test code = LYNDSAY) [id number] [facility]).[id number] 18:35:00* Test Item Value Reference Range Interpretation [...] CORRECTED FOR NEG CONTROL (test code = 20150904) 1 PANEL B SPOT COUNT CORRECTED FOR NEG CONTROL (test code = 6690507) 0 NEGATIVE CONTROL (test code = 3079822) Passed POSITIVE CONTROL (test code = 9354736) Passed LYNDSAY (test code = LYNDSAY) [id number] [facility](R).[id number] 18:35:00* Test Item Value Reference Range Interpretation [...] CORRECTED FOR NEG CONTROL (test code = 6897481) 1 PANEL B SPOT COUNT CORRECTED FOR NEG CONTROL (test code = 4570110) 0 NEGATIVE CONTROL (test code = 8085563) Passed POSITIVE CONTROL (test code = 6902565) Passed LYNDSAY (test code = LYNDSAY) [id number] [facility] HospitalTransesophageal [id number] 13:41:18 Transesophageal Echocardiography Report (CHETAN) Demographics Patient Name YUE LAWS Date of Study 06/16/2023 ESTELLE Gender Female Visit Number [id number] Race Room Number 1055 Number Date of 1970 Referring Physician Age 53 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 The patient was counseled and informed consent was obtained. Topical and intravenous anesthesia was administered. The esophagus was intubated without difficulty. The probe was passed and only the initial 4-chamb er view was obtained, the patient became agitated, [...] Tricuspid Valve Partially visualized. Pulmonic Valve Not visualized.[facility] HospitalMRSA [id number] 09:55:41* Test Item Value Reference Range Interpretation Comme nts Result (test code = 6463-4) No [facility] [id number] 09:55:41* Test Item Value Reference Range Interpretation Comme nts Result (test code = 6463-4) No MRSA isolated [facility] [id number] 09:55:41* Test Item Value Reference Range Interpretation Comme nts Result (test code = 6463-4) No [facility] [id number] 09:55:41* Test Item Value Reference Range Interpretation Comme nts CULTURE ([employer]) (test code = 1095) No MRSA isolated CRYPTOCOCCAL [id number] 15:50:36* Test Item Value Reference Range Interpretation Comme nts CRYPTOCOCCAL ANTIGEN, SERUM ([employer]) (test code = 1828) Negative Negative, Interference SPUTUM CULTURE + GRAM [id number] 10:30:11* Test Item Value Reference Range Interpretation Comme nts CULTURE ([employer]) (test code = 1095) PSEUDOMONAS AERUGINOSA A [...] GRAM STAIN RESULT (BEAKER) (test code = 389181) 10-15 epithelial cells GRAM STAIN RESULT (BEAKER) (test code = 096002) 2+ gram positive cocci in chains and pairs GRAM STAIN RESULT (BEAKER) (test code = 019127) 1+ gram negative rods GRAM STAIN RESULT (BEAKER) (test code = 964145) 1+ yeast 2+ Normal respiratory rebel presentVANCOMYCIN LEVEL, [id number] 06:41:26* Test Item Value Reference Range Interpretation Comme nts VANCOMYCIN TROUGH (BEAKER) ( test code = 522) 17.0 ug/mL 10.0-20.0 Bristle Machine Operator ID - ADMINECHO W CONTRAST & [id number] 13:44:03Transthoracic Echocardiography Report (TTE) Demographics Patient Name YUE LAWS Date of Study 06/14/2023 ESTELLE Gender Female Visit Number [id number] Race Room Number 1055 Number Date of 1970 Referring Aydee Go MD Physician Age 53 year(s) 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 Amount - 2 mlHeight: 63 inches Weight: 86.64 kg (191 lbs) BSA: 1.9 m^2 BMI: 33.83 kg/m^2HR: 92 bpm BP: 99/66 mmHg Summary 1. LV endocardium is adequately visualizedwith IV ultrasound enhancing agent. 2. The left ventricle is chamber size (by vol index) is severely enlarged (female - LVED vol >80ml/m2). Eccentric LV hypertrophy. Global LV systolic function moderately reduced . LVEF by Donws's method of disk assessment is moderately reduced (35- 39%) . All of the LV segments are moderately hypokinetic . Grade 2 diastolic dysfunction (moderately increased LA pressure). 3. The right ventricular chamber size and systolic function are normal. 4. LA size is severely enlarged . 5. There is aortic valve sclerosis without evidence of stenosis. Mild aortic regu rgitation. 6. Unable to estimate peak systolic PA pressure; inadequate TR velocity signal. PreviousStudy In comparison with the prior exam 03/31/23 [...] and systolic function are normal. Right Atrium RAcavity size is normal . Aortic Valve The [...] normal by Doppler visualized. Aorta Aortic root siz e (SInus of Valsalva diameter) is normal . [...] Peak Velocity: 0.85 m/s Peak Gradient: 2.89 mmHgSan Luis Obispo General HospitalHEMOGLOBIN [id number] 09:26:42* Test Item Value Reference Range Interpretation Comme nts HEMOGLOBIN A1C ELECTROPHORESIS (BEAKER) (test code = 3811) 6.7 % See_Comment [...] 5.7- 6.4% indicates increased risk for diabetes (prediabetes)."Bristle Machine Operator ID - ADMOperator ID - ADMECG 12 [id number] 09:06:12Ventricular Rate 97 BPMAtrial Rate 97 BPMP-R Interval 146 msQRS Duration 96 msQ-T Interval 378 msQTC Calculation(Bazett) 480 msP Garland 68 degreesR Garland 107 degreesT Garland 18 degrees Suspect arm leadreversal, interpretation assumes no reversalNormal sinus rhythmRightward axisNonspecific T wave abnormalityAbnormal ECGWhen compared with ECG of 30-MAR-2023 13:06,QRS axis Shifted rightConfirmed by Luis Lopez ([id number]) on 06/14/2023 9:06:07 [facility] [id number] 09:06:12Ventricular Rate 97 BPMAtrial Rate 97 BPMP-R Interval 146 msQRS Duration 96 msQ-T Interval 378 msQTC Calculation(Bazett) 480 msP Garland 68 degreesR Garland 107 degreesT Garland 18 degrees Suspect arm leadreversal, interpretation assumes no reversalNormal sinus rhythmRightward axisNonspecific T wave abno rmalityAbnormal ECGWhen compared with ECG of 30-MAR-2023 13:06,QRS axis Shifted rightConfirmed by Luis Lopez ([id number]) on 06/14/2023 9:06:07 [facility] METABOLIC [id number] 04:48:18* Test Item Value Reference Range Interpretation [...] GFR is not applicable for dialysis patients Bristle Machine Operator ID - ADMINCBC (HEMOGRAM ONLY)2023-06-14 04:22:50* Test [...] 413) 0 /100 WBC 0-0 Strep pneumoniae [id number] 23:34:41* Test Item Value Reference Range Interpretation Comme nts Strep pneumoniae Antigen (test code = 47705-5) Presumptive negative for pneumococcal pneumonia - see [...] the test. Lab Interpretation (test code = 75382-5) Normal [facility] [id number] 23:34:41* Test Item Value Reference Range Interpretation Comme nts Strep pneumoniae Antigen (test code = 00909-6) Presumptive negative for pneumococcal pneumonia - see [...] the test. Lab Interpretation (test code = 40457-7) Normal [facility] pneumoniae [id number] 23:34:41* Test Item Value Reference Range Interpretation Comme nts Strep pneumoniae Antigen (test code = 04598-1) Presumptive negative for pneumococcal pneumonia - see [...] the test. Lab Interpretation (test code = 14406-4) Normal [facility] CenterTREP PNEUMONIAE [id number] 23:34:41* Test Item Value Reference Range Interpretation [...] detection limit of the test. Legionella antigen, [id number] 23:29:07* Test Item Value Reference Range Interpretation Comme [facility] Legionella Urine Antigen (test code = 58363-4) Negative - see comment Negative Negative for L. pneumophila serogroup 1 antigen, suggesting no recent or current infection with this serogroup. Legionellosis cannot be ruled out since other serogroups and species may cause disease. Lab Interpretation (test code = 39551-8) Normal [facility] HospitalLegionella antigen, [id number] 23:29:07* Test Item Value Reference Range Interpretation Comme nts Legionella Urine Antigen (test code = 56841-0) Negative - see comment Negative Negative for L. pneumophila serogroup 1 antigen, suggesting no recent or current infection with this serogroup. Legionellosis cannot be ruled out since other serogroups and species may cause disease. Lab Interpretation (test code = 25276-0) Normal [facility] HospitalLegionella antigen, [id number] 23:29:07* Test Item Value Reference Range Interpretation Comme nts Legionella Urine Antigen (test code = 86588-2) Negative - see comment Negative Negative for L. pneumophila serogroup 1 antigen, suggesting no recent or current infection with this serogroup. Legionellosis cannot be ruled out since other serogroups and species may cause disease. Lab Interpretation (test code = 28792-8) Normal [facility] HospitalLEGIONELLA ANTIGEN, [id number] 23:29:07* Test Item Value Reference Range Interpretation Comme nts L. PNEUMOPHILA SEROGP 1 UR AG ([employer]) (test code = 1156) Negative - see comment Negative Negative for L. pneumophila serogroup 1 antigen, suggesting no recent or current infection with this serogroup. Legionellosis cannot be ruled out since other serogroups and species may cause disease. Venous doppler arm, [id number] 20:05:32PV LAB - Upper Extremities Veins Demographics Patient Name YUE LAWS Date of Study 06/13/2023 ESTELLE Age 53 Visit Number [id number] Gender Female Accession Number [id number] Date ofBirth 1970 Referring Cara Burgess Room Number 1055 Physician Baseball Pitcher Lisa Ruiz Interpreting John Solorio, Physician FellowProcedureType of Study: Veins: Upper ExtremitiesVeins, VENOUS DOPPLER ARM, LEFT.Indications for Study:Left arm pain .Patient Status:MICHAEL.Study Locat ion:Portable.Technical Quality:Adequate visualization. - Results were reported to:Lina CAMPOS@16:50pm .Risk FactorsHistory of Disease+ + + ---------+!Diagnosis !Date !Comments !+ + + +!History/Risk Factors: !03/30/2023!CHF, CVA, HTN. !+ ---+ + +ImpressionsLeft Impression1. There is no deep [...] venous system was patent and compressible with noevidence of thrombus. The left superficial venous system was positive with acute thrombus. Signature Velocities are measured in cm/s ; Diameters are measured in [facility] CenterHIV[facility] ANTIGEN WITH HIV-1/2 [id number] 18:36:40* Test Item Value Reference Range Interpretation Comme nts HIV-1 ANTIGEN WITH HIV 1\\T\\2 ANTIBODY (2) (LATOYA) (test code = 2586) Nonreactive Nonreactive MR lumbar spine without & with IV mjvuewly5377-96-81 14:53:29MR LUMBAR SPINE WITH & WITHOUT IV [...] x 1.7x 1.7 cm. Dorsal paraspinal musculature P7ypcriyxwkwhocr. Postcontrast imaging demonstrates mild peripheralenhancement of the dorsal paraspinal fluid collection. Left adrenalgland 2.9 cm nodule.[facility] HospitalMR L[facility] SP[facility] WITH & WITHOUT IV [id number] 14:53:29[facility] : 1970 Sex: FMR LUMBAR SPINE WITH & WITHOUT IV CONTRASTINDICATION: Lumbar radiculopathy, prior surgery, new symptomsCOMPARISON: 03/30/2023TECHNIQUE: Multiplanar, multisequence MR images of the lumbar spine withand without contrast. FINDINGS: Numbering: Last fully formed disc space is designated L5-S1.Spinal cord: The conus medullaris is normal is size, signal intensity,and position, terminating at the V0supsk. Reduced cauda equinaredundancy above the L3-4 level.Osseous [...] and facethypertrophy contributes to subarachnoid space effacement wi th moderatecrowding of the cauda equina. Moderate to severe left and moderate rightneural foraminalstenosis.L4/L5: Laminectomy, diffuse disc bulge with subarticular recessencroachment but patent canal. Moderate to severe bilateral neuralforaminal stenosis.L5/S1: Disc bulge, facet arthropathy, mildto moderate bilateral neuralforaminal stenosis without significant central spinal canal stenosis.Paraspinal soft tissues: L3-4 laminectomy contains T2 hyperintense fluidmeasuring 3.3 x 1.7 x 1.7 cm. Dorsal paraspinal musculature Y2phkupmteptvkhi. Postcontrast imaging demonstrates mild peripheralenhancement of the [...] with multilevel neural foraminalstenosis similar to prior exam.Leftadrenal gland 2.1 cm indeterminate nodule can be further assessedby adrenal protocol CT or MRI abdomen imaging.Electronically Signed By: Ryan Buckley06/13/2023 14:55 CDTWorkstation Name: [id number] KINASE (CK)2023-06-13 11:54:02* Test Item Value Reference Range Interpretation Comme nts CREATINE KINASE TOTAL (BEAKE R) (test code = 380) 43 U/L 29-200 Bristle Machine Operator ID - ADMINCOMPREHENSIVE METABOLIC [id number] 06:48:22* Test Item Value Reference Range Interpretation [...] GFR is not applicable for dialysis patients Bristle Machine Operator ID - ADMINPROTHROMBIN TIME/LJX5335-03-88 06:40:01* Test Item Value Reference Range Interpretation [...] code = 2801) 1.70 % 0.00-1.00 H [id number] 05:26:09* Test Item Value Reference Range Interpretation Comme nts MAGNESIUM (BEAKER) (test cod e = 627) 2.0 mg/dL 1.6-2.6 Bristle Machine Operator ID - RXIZPTEQDZVDBPJ7050-79-80 05:26:09* Test Item Value Reference Range Interpretation Comme nts PHOSPHORUS (BEAKER) (test co de = 604) 3.5 mg/dL 2.3-4.7 Bristle Machine Operator ID - ADMINBASIC METABOLIC [id number] 05:26:08* Test Item Value Reference Range Interpretation [...] GFR is not applicable for dialysis patients Bristle Machine Operator ID - ADMINCBC W/PLT COUNT & AUTO BMWRMPCJAJYJ6165-11-24 05:11:15* Test Item Value Reference Range Interpretation [...] 0.70 % 0.00-1.00 XR spine lumbar 1 rlze6756-98-02 10:32:20XR SPINE LUMBAR 1 VIEW CLINICAL INDICATION: L3-4 LAMINECTOMY COMPARISON: NoneCH[facility] HospitalXR SPINE LUMBAR 1 [id number] 10:32:20 [facility] : 1970 Sex: FXR SPINE LUMBAR 1 VIEWCLINICAL INDICATION: L3-4 LAMINECTOMYCOMPARISON: NoneIMPRESSION:A single lateral view of the lumbar spine is obtained intraoperatively.The posterior approach surgical instrument is seen at the L3-L4 level,inferior to the L3 spinous process. Results were communicated to , who concurred with the above findings. Electronically Signed By: Maxim Ramos08/01/2022 10:34 CDTWo rkstation Name: [id number] SPINE LUMBAR 1 [id number] 10:29:18 [facility] : 1970 Sex: [...] Signed By: Maxim Ramos08/01/2022 10:31 CDTWorkstation Name: [id number] Screen, ltgjh3634-47-58 05:32:52* Test Item Value Reference Range Interpretation Comme nts Preg Test, Ur (test code = 2-1) Negative Negative Lab Interpretation (test cod e = 34071-8) Normal [facility] HospitalPregnancy Screen, ndhca8645-23-02 05:32:52* Test Item Value Reference Range Interpretation Comme nts Preg Test, Ur (test code = 2-1) Negative Negative Lab Interpretation (test cod e = 28658-7) Normal [facility] HospitalPregnancy Screen, ztbxi1126-96-74 05:32:52* Test Item Value Reference Range Interpretation Comme nts Preg Test, Ur (test code = 2112-1) Negative Negative Lab Interpretation (test cod e = 29030-9) Normal [facility] HospitalPregnancy Screen, wagyc7947-06-26 05:32:52* Test Item Value Reference Range Interpretation Comme nts Preg Test, Ur (test code = 2112-1) Negative Negative Lab Interpretation (test cod e = 63301-9) Normal [facility] HospitalPregnancy Screen, [id number] 05:32:52* Test Item Value Reference Range Interpretation Comme nts Preg Test, Ur (test code = 2112-1) Negative Negative Lab Interpretation (test cod e = 51871-0) Normal [facility] HospitalPregnancy Screen, [id number] 05:32:52* Test Item Value Reference Range Interpretation Comme nts Preg Test, Ur (test code = 2112-1) Negative Negative Lab Interpretation (test cod e = 19468-0) Normal [facility] HospitalPREGNANCY SCREEN, [id number] 05:32:52* Test Item Value Reference Range Interpretation Comme nts TEST URINE (BEAKER ) (test code = 583) Negative Negative BASIC METABOLIC [id number] 23:30:54* Test Item Value Reference Range Interpretation [...] GFR is not applicable for dialysis patients Bristle Machine Operator ID - ADMINPT/JMGO3517-16-03 23:15:33* Test Item Value Reference Range Interpretation [...] H CT neck soft tissue without IV eqfpzzwj9089-66-57 13:45:22EXAM: CT NECK SOFT TISSUE WITHOUT IV [...] Postoperative changes from anterior cervical discectomy fusionat C3-X7Xbzlfgjs Lung Apices: NormalCHI Hazel Hawkins Memorial HospitalCT NECK SOFT TISSUE WITHOUT IV [id number] 13:45:22 [facility] : 1970 Sex: FEXAM: [...] Postoperative changes from anterior cervical discectomy fusionat C3-D5Npryhiie Lung Apices: NormalIMPRESSION:Exam limited by lack of intravenous contrast.1. 1.8 x 2.9 x 1.3 cm ill-defined fluid collection in the leftanterolateral neck soft tissues, suggesting evolving postoperativehemorrhage. Superimposed infection is not ex cluded.2. Retropharyngeal fluid and air measuring up to 0.8 cm in thickness,favored to be present postoperative right frontal edema. Superimposedinfection is not excluded.3. Postoperative changes from ACDF at C3- T2Jpijsrhewuzszm Signed By: Maxim Jean Baptisteip107/31/2022 13:47 CDTWorkstation Name: [id number] METABOLIC [id number] 08:13:13* Test Item Value Reference Range Interpretation [...] GFR is not applicable for dialysis patients Bristle Machine Operator ID - BVCBC W/PLT COUNT & AUTO [id number] 07:46:31* Test Item Value Reference Range Interpretation [...] COUNT (BE BRIDGER) (test code = 415) 0.62 K/ L 0.24-0.36 H EOSINOPHILS ABSOLUTE COUNT (BEAKER) (test code = 416) 0.04 K/ L 0.04-0.36 BASOPHILS ABSOLUTE COUNT (BE BRIDGER) (test code = 417) 0.05 K/ L 0.01-0.08 IMMATURE GRANULOCYTES-RELATI VE PERCENT (BEAKER) (test code = 2801) 0.60 % 0.00-1.00 XR spine cervical 2 or 3 onbkz8598-07-02 20:24:23TECHNIQUE: Frontal and lateral views of the cervical spine. INDICATION: Postop Standing Films. COMPARISON: None.[facility] HospitalXR SPINE CERVICAL 2 OR 3 [id number] 20:24:23[facility]IA [facility] : 1970 Sex: FTECHNIQUE: Frontal and lateral views of the cervical spine.INDICATION: Postop Standing Films.MARAL RISON: None.IMPRESSION:C7 is not well seen on lateral view. Status post C3-C4 ACDF with alignedhardware. Prior C4-C7 ACDF with interbody osseous fusion with intacthardware. No acute fracture or malalignment. Prevertebral soft swellingcompatible with recent postsurgical changes. There is a calcifiedg ranuloma at the left lung apex.Electronically Signed By: Zachariah Garcia05/28/2023 20:26 CDTWorkstationName: [id number] fluoro non-specific up to 1 ksny7431-10-51 11:45:16This is a non-reportable study with no Radiologist dictation. Please refer to your PACS to review images, or Doc Flowsheets for documentation on studies without images.[facility] HospitalFL FLUORO NON-SPECIFIC UP TO 1 [id number] 11:45:16 [facility] : 1970 Sex: FThis is a non- reportable study with no Radiologist dictation. Please refer to your PACS to review images, or Doc Flowsheets for documentation on studies without images.FL FLUORO NON-SPECIFIC UP TO 1 [id number] 10:13:02 [facility] EU[facility] : 1970 Sex: FTECHNIQUE: 1 lateral fluoroscopic image of the cervical spine forlocalization.Fluoroscopic time: 3second(s).FINDINGS:The surgical pointer is at C3-C4.The findings were discussed with Dr. Garcia in theOR who concurred withthe findings.IMPRESSION:Intraoperative localization plain film as described abo ve.Electronically Signed By: Derik Reyez05/28/2023 10:15 CDTWorkstation Name: [id number], QUANTITATIVE, [id number] 08:21:03* Test Item Value Reference Range Interpretation Comme nts GONADOTROPIN, CHORIONIC (HCG ) QUANT (BEAKER) (test code = 649) < mIU/mL 0-10 Non- Females: <10 mIU/mL Females: Gestation Age Reference Range(mIU/mL) 0.2-1 Week 5-50 1-2 Weeks 50-500 2-3 Weeks 100-5,000 3-4 Weeks 500-10,000 4-5 Weeks 1,000-50,000 5-6 Weeks 10,000-100,000 6-8 Weeks 15,000- 200,000 2-3 Months 10,000-100,000 Bristle Machine Operator ID - ADMINCULTURE, [id number] 09:28:30SPECIMEN NUMBER: [id number] CULTURE, URINE SPECIMEN NUMBER: [id number] SPECIMEN COMMENT: URINE SOURCE: URINE REPORT STATUS: FINAL FINAL REPORT: 05/15/2023 >100,000 CFU/ML UROGENITAL REBEL PRESENT NOCOMMON PATHOGENS UNLESS OTHERWISE INDICATED, ALL TESTING PERFORMED AT [facility] [address] [place] [address] MAIL WEIGHER: JANNY STEINER M.D. CLIA NUMBER [id number] [place]. [id number], [id number] 12:02:50SPECIMEN NUMBER: [id number] CULTURE, URINE SPECIMEN NUMBER: [id number] SOURCE: URINE REPORT STATUS: FINAL FINAL REPORT: 05/13/2023 NO SPECIMEN RECEIVED FOR TESTING. CHARGES DELETED.BASIC METABOLIC [id number] 04:48:43* Test Item Value Reference Range Interpretation Comme nts GLUCOSE (test code = 2217) 117 MG/DL 70-99 H BUN (test code = 2208) 20 MG/DL 6-20 CREATININE (test code = 2214) 0.83 MG/DL 0.60-1.30 eGFR (2020 CKD-EPI) (test co de = 30187) 85 ML/MIN/1.73 >60 SODIUM (test code = [...] 12.7 SECONDS 12.5-14.7 INR (test code = 93505) 0.9 SEE BELOW CURRENT RECOMMENDATIONS ARE FOR AN INR OF 2.0-3.0 FOR ALL PATIENTS ON VITAMIN K ANTAGONISTS, EXCEPT THOSE WITH PROSTHETIC HEART VALVES, FOR WHOM INR OF 2.5-3.5 IS RECOMMENDED. UNLESS OTHERWISE INDICATED, ALL TESTING PERFORMED AT [facility] [address] [place] [address] MAIL WEIGHER: JANNY STEINER M.D. CLIA NUMBER [id number] [facility] [place]. [id number] CBC W/AUTO DIFF WITH [id number] 01:54:17* Test Item Value Reference Range Interpretation [...] H ABS NUCLEATED RBCS (test code = 58546) 0.00 K/UL 0.00-0.11 ECG 12 [id number] 14:02:48Ventricular Rate 102 BPMAtrial Rate 102 BPMP-R Interval 146 msQRS Duration 90 msQ-T Interval 372 msQTC Calculation(Bazett) 484 msP Garland 11 degreesR Garland -53 degreesT Garland 29 degrees Sinus tachycardiaPossible Left atrial enlargementLeft axis deviationPoor R wave progression Cannot rule out Anterior infarct , age undetermined vs lead misplacementNonspecific T wave abnormalityProlonged QTAbnormal ECGNo previous ECGs availableConfirmed by David GARCIA BASANT ([id number]) on 04/06/2023 2:02:46 [facility] RosaECHO W CONTRAST & [id number] 13:11:39Transthoracic Echocardiography Report (TTE) Demographics Patient Name YUE LAWS Date of Study 03/31/2023 ESTELLE Gender Female Visit Number [id number] Race Room Number 2227 Number Date of 1970 Referring Physician Mariah Aldridge MD Age 53 year(s) Baseball Pitcher Wilmer Francois Staff Nurse Anesthetist Josefina Corbett AISHWARYA Interpreting Physician Melody MDProcedure Type of Study [...] of Valsalva diameter) is normal . Pericardium Nopericardial effusion is visualized. IVC/SVC/PA/PV/Pleural The estimated RA pressure by IVC dynamics0-5mmHg .Chambers/Structures Left Atrium LA Volume: 79.75 ml [...] Velocity: 0.74 m/s Peak Gradient: 2.22 mmHgCHI Hazel Hawkins Memorial HospitalXR chest 1 view portable / [id number] 15:39:07TECHNIQUE: Frontal view of the chest. INDICATION: CHf. COMPARISON: None. FINDINGS: LINES/TUBES: None. HEART AND MEDIASTINUM: Cardiomediastinal contour is within normallimits. LUNGS: The lungs are well inflated and clear. No consolidation orpulmonary edema. PLEURA: No pneumothorax. No significant pleural effusion. SOFT TISSUES AND BONES: Cervical spinal fixation hardware is noted.[facility] HospitalXR CHEST 1 VIEW PORTABLE / [id number] 15:39:07 [facility] : 1970 Sex: FTECHNIQUE: Frontal view of the chest.INDICATION: CHf.COMPARISON: None.FINDINGS:LINES/TUBES: None.HE ART AND MEDIASTINUM: Cardiomediastinal contour is within normallimits. LUNGS: The lungs are well inflated and clear. No consolidation orpulmonary edema.PLEURA: No pneumothorax. No significant pleuraleffusion.SOFT TISSUES AND BONES: Cervical spinal fixation hardware is noted.IMPRESSION:No acute card iopulmonary process.Electronically Signed By: Jose Carlos Lebron04/01/2023 15:41 CDTWorkstation Name: [id number]-CYRB NATRIURETIC FACTOR (BNP)2023-04-01 14:15:07* Test Item Value Reference Range Interpretation Comme nts B-TYPE NATRIURETIC PEPTIDE ( BEAKER) (test code = 700) 192 pg/mL 0-100 H Bristle Machine Operator ID - ADMINMR spine cervical without IV xehsywlz7245-70-34 11:30:35MRI cervical spine without contrast CLINICAL HISTORY: [...] and paraspinal soft tissues are within normal limits.[facility] HospitalMR CERVICAL SPINE WITHOUT IV [id number] 11:30:35 [facility] : 1970 Sex: [...] Signed By: Maxim Sultana03/31/2023 11:32 CDTWorkstation Name: [id number] METABOLIC [id number] 04:43:14* Test Item Value Reference Range Interpretation [...] GFR is not applicable for dialysis patients Bristle Machine Operator [facility] (HEMOGRAM ONLY)2023-03-31 04:20:07* Test Item Value Reference [...] 0 /100 WBC 0-0 Arterial doppler legs hvioeolvi9871-64-70 17:44:07PV LAB - Lower Extremity Arterial Duplex Demographics Patient Name YUE LAWS Date of Study ESTELLE Age 53 Visit Number [id number] Gender Female Accession Number [id number] Date of 1970 Referring Mariah Aldridge, Room Number 2227 Physician Baseball Pitcher Yovana Akins Interpreting John Solorio, Physician FellowProcedureType of Study: Extremities Arteries: Lower Extremities Arterial Duplex, ARTERIAL DOPPLER LEGS, BILATERAL.Indications for Study:PVD.Patient Status:Routine.Study Location:Vascular Lab.Technical Quality:Adequate visualization.RiskFactorsHistory of Disease+ + + --+!Diagnosis !Date !Comments !+ + + ----+!History/Risk Factors: !03/30/2023!CHF, CVA, HTN. !+ +---- ------+ +ImpressionsRight Impression1. The common femoral, profunda femoral, [...] are measured in cm/s ; Diameters are measuredin cmLE Duplex Measurements Right Left + + + + + + + + + + !Location ! !PSV !EDV !Waveform ! !PSV !EDV !Waveform ! +------- + + + + + + + + + !Mid Common F emoral ! !153 ! !Triphasic ! !153 ! [...] ! !Triphasic ! !144 ! !Triphasic ! +----- + + + + + + + + + !Dist SFA ! !106 ! !Triphasic ! !82.1 ! !Triphasic ! + + + + + + + + + + !Prox Popliteal ! !85 ! !Triphasic ! !80.9 ! !Triphasic ! +-- + + + + + + + + + !Dist Popliteal ! !69.5 ! !Triphasic ! !70.4 ! !Triphasic ! + + + + + + + + + + !Prox PATTERNMAKER HELPER ! !32 ! !Biphasic ! !60.9 ! !Triphasic ! + + + + + + + + + + !Mid PATTERNMAKER HELPER ! !25.9 ! !Biphasic ! !59.7 ! !Triphasic ! + + + + + + + + + + !Dist PATTERNMAKER HELPER ! !33.2 ! !Biphasic ! !37.4 ! [...] ! !Biphasic ! !23.6 ! !Biphasic ! +- + + + + + + + + +[facility] HospitalABI's Only(Ankle/Brachial Index)2023-03-30 17:13:47PV LAB - Lower Extremity Arterial Procedure Demographics Patient Name YUE LAWS Date of Study 03/30/2023 ESTELLE Age 53 Visit Number [id number] Gender Female Accession Number [id number] Date of 1970 Referring Mariah Jasen, Room Number 2227 Physician Baseball Pitcher Yovana Akins Interpreting John Solorio, Physician FellowProcedureType of Study: Extremities Arteries: Lower Extremity Arterial Procedure, ARTERIAL (ALEISHA'S W/DOPPLER) ONLY.Indications for Study:PVD.Patient Status:Routine.Study Location:Vascular Lab.Technical Quality:Adequate visualization.Risk FactorsHistory of Disease+ + + ----+!Diagnosis !Date !Comments !+ + + --------+!History/Risk Factors: !03/30/2023!CHF, CVA, HTN. !+ +- ---------+ +ImpressionsRight Impression1. The posterior tibial and dorsalispedis arteries are patent withtriphasic Doppler waveforms.2. The PT pressure is 106 mmHg with an ALEISHA of .79 and the DP pressure is 102mmHg with an ALEISHA of .76, within the moderate obstruction range.3.The digits do not have adequate flow by PPG waveforms. No TBI is obtainedLeft Impression1. The posterior tibial and dorsalis pedis arteries are patent withtriphasic Doppler waveforms.2. The PT pressure is 116 mmHg with an ALEISHA of .86 and the DP pressure is 121mmHg with an ALEISHA of .90, within the mildobstruction range.3. The digits do not have adequate flow by PPG waveforms. No TBI isobtained. Conclusions Summary Arterial pressures and Doppler waveforms were performed bilaterally. Adequate Doppler waveforms were obtained. Doppler waveforms were triphasic bilaterally. The right ALEISHA's were withinthe moderate obstruction range. The left ALEISHA's were within the mild obstruction range. The bilateral digits did not have adequate flow by PPG waveforms bilaterally. No TBI's were obtained. Signature - Velocities are measured in cm/s ; Diameters are measured in [facility] thoracic spine without IV rehlasdm8721-11-12 12:50:50MR THORACIC SPINE WITHOUT IV CONTRAST INDICATION: [...] abnormality. T10-11 moderate right neural foraminal stenosis andT11- 12 moderate bilateral foraminal stenosis due to facet hypertrophyand ligamentum flavum redundancy. Thoracic vertebrae maintain normal height. Mild multilevel degenerativedisc changes. No evidence of acute osseous fracture or traumaticmalalignment. No paraspinal mass. Conus medullaris terminates at L1. Redundant cauda equina partiallyimaged and further reported on MRI lumbar spine. [facility] HospitalMR THORACIC SPINE WITHOUT IV [id number] 12:50:50[facility] : 1970 Sex: [...] abnormality. T10-11 moderate right neural foraminal stenosis igrY18-74 moderate bilateral foraminal stenosis due to facet [...] Signed By: Ryan Buckley03/30/2023 12:52 CDTWorkstation Name: [id number] spine lumbar without IV ykxsshhk4048-62-99 12:33:57MR LUMBAR SPINE WITHOUT IV CONTRAST INDICATION: Unlisted Reason for ExamConcern for cord compression COMPARISON: None TECHNIQUE: Multiplanar, multisequence MR images of the lumbar spinewithout contrast. FINDINGS: For the purposes of this dictation, the 5 lowermost dhykkf-bggrcoiwddtje-hhgq vertebral bodies are labeled L1-L5.Alignment of the [...] with mild to moderatebilateral neural foraminal stenosisCHI Hazel Hawkins Memorial HospitalMR LUMBAR SPINE WITHOUT IV VXSMXTTQ2210-62-10 12:33:57 [facility] : 1970 Sex: FMR LUMBAR SPINE WITHOUT IV CONTRASTINDICATION: Unlisted Reason for ExamConcern for cord compressionCOMPARISON: NoneTECHNIQUE: Multiplanar, multisequence MR images of the lumbar spinewithout contrast. FINDINGS: For the purposes of this dictation, the 5 lowermost mrahqn-zbscbzglqmewg-nygt vertebral bodies are labeled L1- L5.Alignment of the lumbar spine is within normal limits. Vertebral body height is maintained. Bone marrow edema is seen at the inferior L3 and superior L4 vertebralbodies and bilateral L4 pedicles, favored to be degenerative in nature.Suggestion of a synovial cyst at the kjalqQ75-S15 level (series 301image eight).No spinal cord signal [...] flavum buckling versus synovial cyst at the rvncgT81-F07 level (series 301image eight). MRI thoracic spine can beconsidered for further evaluation.7. Mild clumping of the cauda equina nerve roots, which is nonspecificbut may represent arachnoiditis. Postcontrast imaging can be consideredfor further evaluation.Electronically Signed By: Maxim Sultana03/30/2023 12:36 CDTWorkstation Name: [id number] [id number] 11:45:01* Test Item Value Reference Range Interpretation Comme nts HEMOGLOBIN A1C ELECTROPHORESIS ([employer]) (test code = 3811) 5.7 % See_Comment [...] 5.7- 6.4% indicates increased risk for diabetes (prediabetes)."Bristle Machine Operator ID - ADMEEG AWAKE AND TMDDPY0836-96-39 09:57:53Steph Martinez MD 03/30/2023 9:[address] EEG Type: Inpatient, outpatient, EMUDATE(s) OF EE03/30/23DATE OF REPORT: 03/30/23MRN: [id number] of : 1970EE-1454Start time: 08:36Stop time: :23ICD-10: R56.9 CPT Code: 88042 (awake and asleep)HISTORY: 53 y/o female with [...] EEG recordings. Steph Elias MD, MPHNeurophysiology/Epilepsy AttendingCH[facility] Hospital EEG AWAKE AND JAPNJK0003-03-83 09:57:53Steph Martinez MD 03/30/2023 9:[address] EEG Type: Inpatient, outpatient, EMUDATE(s) OF EE03/30/23DATE OF REPORT: 03/30/23MRN: [id number] of : 1970EE-1454Start time: 08:36Stop time: :23ICD-10: R56.9 CPT Code: 57476 (awake and asleep)HISTORY: 53 y/o female with [...] EEG recordings. Steph Elias MD, MPHNeurophysiology/Epilepsy AttendingCH[facility] EEG AWAKE AND [id number] 09:57:53Steph Martinez MD 03/30/2023 9:[address] [facility] EEG Type: Inpatient, outpatient, EMUDATE(s) OF EE03/30/23DATE OF REPORT: 03/30/23MRN: [id number] of : 1970EE-1454Start time: 08:36Stop time: 09:23ICD-10: R56.9 CPT Code: 63544 (awake and asleep)HISTORY: 53 y/o female with [...] EEG recordings. Steph Elias MD, MPHNeurophysiology/Epilepsy AttendingCH[facility] VALPROIC ACID LEVEL, [id number] 09:42:31* Test Item Value Reference Range Interpretation Comme nts VALPROIC ACID TOTAL (BEAKER) (test code = 924) 76 ug/mL 50-100 Therapeutic range for some clinical conditions may be >100 ug/mLUrinalysis w/Microscopic + Reflex to Spxvfhi8505-47-12 08:43:51* Test Item Value Reference Range Interpretation Comme nts Color, UA (test code = 5778-6) Yellow Clarity, UA (test code = 5767-9) Clear Specific [place], UA (test code = 5811-5) 1.033 1.001-1.035 pH, UA (test code = 5803-2) 6.0 5.0-8.0 Protein, UA (test code = 13108-4) 30 mg/dL Negative A Glucose, UA (test code = 365) Negative Negative Ketones, UA (test code = 2514-8) Negative Negative Bilirubin, UA (test code = 42200-9) Negative Negative Blood, UA (test code = 18766-8) Small Negative A Nitrite, UA (test code = 5802-4) Negative Negative Leukocytes, UA (test code = 5799-2) Negative Negative Urobilinogen, UA (test code = 80554-6) 0.2 0.2-1.0 RBC, UA (test code = 81655-3) 51 See_Comment [Automated message] The system which [...] Occasional Squam Epithel, UA (test code = 07355-9) See_Comment [Automated message] The system which generated this result transmitted reference range: /HPF. The reference range was not used to interpret this result as normal/abnormal. Specimen Source (test code = 2795) LYNDSAY (test code = LYNDSAY) Bristle Machine Operator ID - [auto]Bristle Machine Operator ID - tech Lab Interpretation (test code = 65107-2) Abnormal [facility] HospitalUrinalysis w/Microscopic + Reflex to Culture 2023-03-30 08:43:51* Test Item Value Reference Range Interpretation Comme nts Color, UA (test code = 5778-6) Yellow Clarity, UA (test code = 5767-9) Clear Specific [place], UA (test code = 5811-5) 1.033 1.001-1.035 pH, UA (test code = 5803-2) 6.0 5.0-8.0 Protein, UA (test code = 01060-6) 30 mg/dL Negative A Glucose, UA (test code = 365) Negative Negative Ketones, UA (test code = 2514-8) Negative Negative Bilirubin, UA (test code = 50004-8) Negative Negative Blood, UA (test code = 59220-1) Small Negative A Nitrite, UA (test code = 5802-4) Negative Negative Leukocytes, UA (test code = 5799-2) Negative Negative Urobilinogen, UA (test code = 95818-4) 0.2 0.2-1.0 RBC, UA (test code = 14126-9) 51 See_Comment [Automated message] The system which [...] Occasional Squam Epithel, UA (test code = 48297-9) See_Comment [Automated message] The system which generated this result transmitted reference range: /HPF. The reference range was not used to interpret this result as normal/abnormal. Specimen Source (test code = 2795) LYNDSAY (test code = LYNDSAY) Bristle Machine Operator ID - [auto]Bristle Machine Operator ID - tech Lab Interpretation (test code = 47849-1) [facility] Culture 2023-03-30 08:43:51* Test Item Value Reference Range Interpretation Comme nts Color, UA (test code = 5778-6) Yellow Clarity, UA (test code = 5767-9) Clear Specific [place], UA (test code = 5811-5) 1.033 1.001-1.035 pH, UA (test code = 5803-2) 6.0 5.0-8.0 Protein, UA (test code = 72784-6) 30 mg/dL Negative A Glucose, UA (test code = 365) Negative Negative Ketones, UA (test code = 2514-8) Negative Negative Bilirubin, UA (test code = 20763-7) Negative Negative Blood, UA (test code = 61988-1) Small Negative A Nitrite, UA (test code = 5802-4) Negative Negative Leukocytes, UA (test code = 5799-2) Negative Negative Urobilinogen, UA (test code = 45063-8) 0.2 0.2-1.0 RBC, UA (test code = 03007-8) 51 See_Comment [Automated message] The system which [...] Occasional Squam Epithel, UA (test code = 95155-0) See_Comment [Automated message] The system which generated this result transmitted reference range: /HPF. The reference range was not used to interpret this result as normal/abnormal. Specimen Source (test code = 2795) LYNDSAY (test code = LYNDSAY) Bristle Machine Operator ID - [auto]Bristle Machine Operator ID - tech Lab Interpretation (test code = 06977-9) [facility] Reflex [facility] Culture 2023-03-30 08:43:51* Test Item Value Reference Range Interpretation Comme nts Color, UA (test code = 5778-6) Yellow Clarity, UA (test code = 5767-9) Clear Specific [place], UA (test code = 5811-5) 1.033 1.001-1.035 pH, UA (test code = 5803-2) 6.0 5.0-8.0 Protein, UA (test code = 32576-6) 30 mg/dL Negative A Glucose, UA (test code = 365) Negative Negative Ketones, UA (test code = 2514-8) Negative Negative Bilirubin, UA (test code = 04774-4) Negative Negative Blood, UA (test code = 44252-0) Small Negative A Nitrite, UA (test code = 5802-4) Negative Negative Leukocytes, UA (test code = 5799-2) Negative Negative Urobilinogen, UA (test code = 85165-3) 0.2 0.2-1.0 RBC, UA (test code = 59540-8) 51 See_Comment [Automated message] The system which [...] Occasional Squam Epithel, UA (test code = 59471-8) See_Comment [Automated message] The system which generated this result transmitted reference range: /HPF. The reference range was not used to interpret this result as normal/abnormal. Specimen Source (test code = 2795) LYNDSAY (test code = LYNDSAY) Bristle Machine Operator ID - [auto]Bristle Machine Operator ID - tech Lab Interpretation (test code = 08054-3) [facility] Reflex to Culture 2023-03-30 08:43:51* Test Item Value Reference Range Interpretation Comme nts Color, UA (test code = 5778-6) Yellow Clarity, UA (test code = 5767-9) Clear Specific [place], UA (test code = 5811-5) 1.033 1.001-1.035 pH, UA (test code = 5803-2) 6.0 5.0-8.0 Protein, UA (test code = 28750-5) 30 mg/dL Negative A Glucose, UA (test code = 365) Negative Negative Ketones, UA (test code = 2514-8) Negative Negative Bilirubin, UA (test code = 19223-7) Negative Negative Blood, UA (test code = 53455-9) Small Negative A Nitrite, UA (test code = 5802-4) Negative Negative Leukocytes, UA (test code = 5799-2) Negative Negative Urobilinogen, UA (test code = 37255-2) 0.2 0.2-1.0 RBC, UA (test code = 09196-7) 51 See_Comment [Automated message] The system which [...] Occasional Squam Epithel, UA (test code = 67176-3) See_Comment [Automated message] The system which generated this result transmitted reference range: /HPF. The reference range was not used to interpret this result as normal/abnormal. Specimen Source (test code = 2795) LYNDSAY (test code = LYNDSAY) Bristle Machine Operator ID - [auto]Bristle Machine Operator ID - tech Lab Interpretation (test code = 16878-8) [facility] Reflex to Culture 2023-03-30 08:43:51* Test Item Value Reference Range Interpretation Comme nts Color, UA (test code = 5778-6) Yellow Clarity, UA (test code = 5767-9) Clear Specific [place], UA (test code = 5811-5) 1.033 1.001-1.035 pH, UA (test code = 5803-2) 6.0 5.0-8.0 Protein, UA (test code = 25270-6) 30 mg/dL Negative A Glucose, UA (test code = 365) Negative Negative Ketones, UA (test code = 2514-8) Negative Negative Bilirubin, UA (test code = 32212-1) Negative Negative Blood, UA (test code = 27096-4) Small Negative A Nitrite, UA (test code = 5802-4) Negative Negative Leukocytes, UA (test code = 5799-2) Negative Negative Urobilinogen, UA (test code = 57909-9) 0.2 0.2-1.0 RBC, UA (test code = 17494-9) 51 See_Comment [Automated message] The system which [...] Occasional Squam Epithel, UA (test code = 02219-0) See_Comment [Automated message] The system which generated this result transmitted reference range: /HPF. The reference range was not used to interpret this result as normal/abnormal. Specimen Source (test code = 2795) LYNDSAY (test code = LYNDSAY) Bristle Machine Operator ID - [auto]Bristle Machine Operator ID - tech Lab Interpretation (test code = 89708-9) [facility] Reflex to Culture 2023-03-30 08:43:51* Test Item Value Reference Range Interpretation Comme nts Color, UA (test code = 5778-6) Yellow Clarity, UA (test code = 5767-9) Clear Specific [place], UA (test code = 5811-5) 1.033 1.001-1.035 pH, UA (test code = 5803-2) 6.0 5.0-8.0 Protein, UA (test code = 38733-7) 30 mg/dL Negative A Glucose, UA (test code = 365) Negative Negative Ketones, UA (test code = 2514-8) Negative Negative Bilirubin, UA (test code = 33331-2) Negative Negative Blood, UA (test code = 21469-6) Small Negative A Nitrite, UA (test code = 5802-4) Negative Negative Leukocytes, UA (test code = 5799-2) Negative Negative Urobilinogen, UA (test code = 41093-7) 0.2 0.2-1.0 RBC, UA (test code = 17866-7) 51 See_Comment [Automated message] The system which [...] Occasional Squam Epithel, UA (test code = 96077-4) See_Comment [Automated message] The system which generated this result transmitted reference range: /HPF. The reference range was not used to interpret this result as normal/abnormal. Specimen Source (test code = 2795) LYNDSAY (test code = LYNDSAY) Bristle Machine Operator ID - [auto]Bristle Machine Operator ID - tech Lab Interpretation (test code = 89150-7) [facility] Ref[facility] Culture 2023-03-30 08:43:51* Test Item Value Reference Range Interpretation Comme nts Color, UA (test code = 5778-6) Yellow Clarity, UA (test code = 5767-9) Clear Specific [place], UA (test code = 5811-5) 1.033 1.001-1.035 pH, UA (test code = 5803-2) 6.0 5.0-8.0 Protein, UA (test code = 48152-9) 30 mg/dL Negative A Glucose, UA (test code = 365) Negative Negative Ketones, UA (test code = 2514-8) Negative Negative Bilirubin, UA (test code = 82707-4) Negative Negative Blood, UA (test code = 13063-9) Small Negative A Nitrite, UA (test code = 5802-4) Negative Negative Leukocytes, UA (test code = 5799-2) Negative Negative Urobilinogen, UA (test code = 64260-1) 0.2 0.2-1.0 RBC, UA (test code = 81093-0) 51 See_Comment [Automated message] The system which [...] Occasional Squam Epithel, UA (test code = 63102-3) See_Comment [Automated message] The system which generated this result transmitted reference range: /HPF. The reference range was not used to interpret this result as normal/abnormal. Specimen Source (test code = 2795) LYNDSAY (test code = LYNDSAY) Bristle Machine Operator ID - [auto]Bristle Machine Operator ID - tech Lab Interpretation (test code = 41815-0) [facility]normal [facility] Reflex to Culture 2023-03-30 08:43:51* Test Item Value Reference Range Interpretation Comme nts Color, UA (test code = 5778-6) Yellow Clarity, UA (test code = 5767-9) Clear Specific [place], UA (test code = 5811-5) 1.033 1.001-1.035 pH, UA (test code = 5803-2) 6.0 5.0-8.0 Protein, UA (test code = 43599-9) 30 mg/dL Negative A Glucose, UA (test code = 365) Negative Negative Ketones, UA (test code = 2514-8) Negative Negative Bilirubin, UA (test code = 98109-6) Negative Negative Blood, UA (test code = 73713-5) Small Negative A Nitrite, UA (test code = 5802-4) Negative Negative Leukocytes, UA (test code = 5799-2) Negative Negative Urobilinogen, UA (test code = 77113-4) 0.2 0.2-1.0 RBC, UA (test code = 05667-7) 51 See_Comment [Automated message] The system which [...] Occasional Squam Epithel, UA (test code = 05254-1) See_Comment [Automated message] The system which generated this result transmitted reference range: /HPF. The reference range was not used to interpret this result as normal/abnormal. Specimen Source (test code = 2795) LYNDSAY (test code = LYNDSAY) Bristle Machine Operator ID - [auto]Bristle Machine Operator ID - tech Lab Interpretation (test code = 39059-9) [facility]normal [facility] + Reflex to Culture 2023-03-30 08:43:51* Test Item Value Reference Range Interpretation Comme nts Color, UA (test code = 5778-6) Yellow Clarity, UA (test code = 5767-9) Clear Specific [place], UA (test code = 5811-5) 1.033 1.001-1.035 pH, UA (test code = 5803-2) 6.0 5.0-8.0 Protein, UA (test code = 55328-9) 30 mg/dL Negative A Glucose, UA (test code = 365) Negative Negative Ketones, UA (test code = 2514-8) Negative Negative Bilirubin, UA (test code = 79071-0) Negative Negative Blood, UA (test code = 87825-4) Small Negative A Nitrite, UA (test code = 5802-4) Negative Negative Leukocytes, UA (test code = 5799-2) Negative Negative Urobilinogen, UA (test code = 98047-2) 0.2 0.2-1.0 RBC, UA (test code = 05845-3) 51 See_Comment [Automated message] The system which [...] Occasional Squam Epithel, UA (test code = 10558-2) See_Comment [Automated message] The system which generated this result transmitted reference range: /HPF. The reference range was not used to interpret this result as normal/abnormal. Specimen Source (test code = 2795) LYNDSAY (test code = LYNDASY) Bristle Machine Operator ID - [auto]Bristle Machine Operator ID - tech Lab Interpretation (test code = 83025-9) Abnormal [facility] + Reflex to Culture 2023-03-30 08:43:51* Test Item Value Reference Range Interpretation Comme nts Color, UA (test code = 5778-6) Yellow Clarity, UA (test code = 5767-9) Clear Specific [place], UA (test code = 5811-5) 1.033 1.001-1.035 pH, UA (test code = 5803-2) 6.0 5.0-8.0 Protein, UA (test code = 16873-2) 30 mg/dL Negative A Glucose, UA (test code = 365) Negative Negative Ketones, UA (test code = 2514-8) Negative Negative Bilirubin, UA (test code = 08799-5) Negative Negative Blood, UA (test code = 24670-8) Small Negative A Nitrite, UA (test code = 5802-4) Negative Negative Leukocytes, UA (test code = 5799-2) Negative Negative Urobilinogen, UA (test code = 26472-1) 0.2 0.2-1.0 RBC, UA (test code = 90023-1) 51 See_Comment [Automated message] The system which [...] Occasional Squam Epithel, UA (test code = 80511-1) See_Comment [Automated message] The system which generated this result transmitted reference range: /HPF. The reference range was not used to interpret this result as normal/abnormal. Specimen Source (test code = 2795) LYNDSAY (test code = LYNDSAY) Bristle Machine Operator ID - [auto]Bristle Machine Operator ID - tech Lab Interpretation (test code = 01756-9) [facility]normal [facility] + Reflex to Culture 2023-03-30 08:43:51* Test Item Value Reference Range Interpretation Comme nts Color, UA (test code = 5778-6) Yellow Clarity, UA (test code = 5767-9) Clear Specific [place], UA (test code = 5811-5) 1.033 1.001-1.035 pH, UA (test code = 5803-2) 6.0 5.0-8.0 Protein, UA (test code = 80439-6) 30 mg/dL Negative A Glucose, UA (test code = 365) Negative Negative Ketones, UA (test code = 2514-8) Negative Negative Bilirubin, UA (test code = 41603-0) Negative Negative Blood, UA (test code = 63375-7) Small Negative A Nitrite, UA (test code = 5802-4) Negative Negative Leukocytes, UA (test code = 5799-2) Negative Negative Urobilinogen, UA (test code = 36523-9) 0.2 0.2-1.0 RBC, UA (test code = 62020-9) 51 See_Comment [Automated message] The system which [...] Occasional Squam Epithel, UA (test code = 12389-9) See_Comment [Automated message] The system which generated this result transmitted reference range: /HPF. The reference range was not used to interpret this result as normal/abnormal. Specimen Source (test code = 2795) LYNDSAY (test code = LYNDSAY) Bristle Machine Operator ID - [auto]Bristle Machine Operator ID - tech Lab Interpretation (test code = 91171-6) [facility]normal [facility] + Reflex to Culture 2023-03-30 08:43:51* Test Item Value Reference Range Interpretation Comme nts Color, UA (test code = 5778-6) Yellow Clarity, UA (test code = 5767-9) Clear Specific [place], UA (test code = 5811-5) 1.033 1.001-1.035 pH, UA (test code = 5803-2) 6.0 5.0-8.0 Protein, UA (test code = 37756-1) 30 mg/dL Negative A Glucose, UA (test code = 365) Negative Negative Ketones, UA (test code = 2514-8) Negative Negative Bilirubin, UA (test code = 24119-5) Negative Negative Blood, UA (test code = 33597-6) Small Negative A Nitrite, UA (test code = 5802-4) Negative Negative Leukocytes, UA (test code = 5799-2) Negative Negative Urobilinogen, UA (test code = 61625-9) 0.2 0.2-1.0 RBC, UA (test code = 25822-4) 51 See_Comment [Automated message] The system which [...] Occasional Squam Epithel, UA (test code = 68813-5) See_Comment [Automated message] The system which generated this result transmitted reference range: /HPF. The reference range was not used to interpret this result as normal/abnormal. Specimen Source (test code = 2795) LYNDSAY (test code = LYNDSAY) Bristle Machine Operator ID - [auto]Bristle Machine Operator ID - tech Lab Interpretation (test code = 79405-3) [facility]normal [facility] Reflex to Culture 2023-03-30 08:43:51* Test Item Value Reference Range Interpretation Comme nts Color, UA (test code = 5778-6) Yellow Clarity, UA (test code = 5767-9) Clear Specific [place], UA (test code = 5811-5) 1.033 1.001-1.035 pH, UA (test code = 5803-2) 6.0 5.0-8.0 Protein, UA (test code = 64775-7) 30 mg/dL Negative A Glucose, UA (test code = 365) Negative Negative Ketones, UA (test code = 2514-8) Negative Negative Bilirubin, UA (test code = 70533-5) Negative Negative Blood, UA (test code = 08200-9) Small Negative A Nitrite, UA (test code = 5802-4) Negative Negative Leukocytes, UA (test code = 5799-2) Negative Negative Urobilinogen, UA (test code = 33840-6) 0.2 0.2-1.0 RBC, UA (test code = 68912-2) 51 See_Comment [Automated message] The system which [...] Occasional Squam Epithel, UA (test code = 22691-2) See_Comment [Automated message] The system which generated this result transmitted reference range: /HPF. The reference range was not used to interpret this result as normal/abnormal. Specimen Source (test code = 2795) LYNDSAY (test code = LYNDSAY) Bristle Machine Operator ID - [auto]Bristle Machine Operator ID - tech Lab Interpretation (test code = 37479-7) Abnormal [facility] Reflex to Culture 2023-03-30 08:43:51* Test Item Value Reference Range Interpretation Comme nts Color, UA (test code = 5778-6) Yellow Clarity, UA (test code = 5767-9) Clear Specific [place], UA (test code = 5811-5) 1.033 1.001-1.035 pH, UA (test code = 5803-2) 6.0 5.0-8.0 Protein, UA (test code = 50373-6) 30 mg/dL Negative A Glucose, UA (test code = 365) Negative Negative Ketones, UA (test code = 2514-8) Negative Negative Bilirubin, UA (test code = 28936-2) Negative Negative Blood, UA (test code = 96398-4) Small Negative A Nitrite, UA (test code = 5802-4) Negative Negative Leukocytes, UA (test code = 5799-2) Negative Negative Urobilinogen, UA (test code = 56985-1) 0.2 0.2-1.0 RBC, UA (test code = 21427-6) 51 See_Comment [Automated message] The system which [...] Occasional Squam Epithel, UA (test code = 47293-5) See_Comment [Automated message] The system which generated this result transmitted reference range: /HPF. The reference range was not used to interpret this result as normal/abnormal. Specimen Source (test code = 2795) LYNDSAY (test code = LYNDSAY) Bristle Machine Operator ID - [auto]Bristle Machine Operator ID - tech Lab Interpretation (test code = 50868-7) [facility]normal [facility] + Reflex to Culture 2023-03-30 08:43:51* Test Item Value Reference Range Interpretation Comme nts Color, UA (test code = 5778-6) Yellow Clarity, UA (test code = 5767-9) Clear Specific [place], UA (test code = 5811-5) 1.033 1.001-1.035 pH, UA (test code = 5803-2) 6.0 5.0-8.0 Protein, UA (test code = 17313-5) 30 mg/dL Negative A Glucose, UA (test code = 365) Negative Negative Ketones, UA (test code = 2514-8) Negative Negative Bilirubin, UA (test code = 21668-0) Negative Negative Blood, UA (test code = 41122-3) Small Negative A Nitrite, UA (test code = 5802-4) Negative Negative Leukocytes, UA (test code = 5799-2) Negative Negative Urobilinogen, UA (test code = 02781-6) 0.2 0.2-1.0 RBC, UA (test code = 39306-9) 51 See_Comment [Automated message] The system which [...] Occasional Squam Epithel, UA (test code = 82045-4) See_Comment [Automated message] The system which generated this result transmitted reference range: /HPF. The reference range was not used to interpret this result as normal/abnormal. Specimen Source (test code = 2795) LYNDSAY (test code = LYNDSAY) Bristle Machine Operator ID - [auto]Bristle Machine Operator ID - tech Lab Interpretation (test code = 41293-9) [facility] UR[facility] [id number] 08:43:51 * Test Item Value Reference Range [...] < /HPF SOURCE(BEAKER) (test code = 2795) Bristle Machine Operator ID - [auto]Bristle Machine Operator ID - techCOMPREHENSIVE METABOLIC [id number] 04:37:29* Test Item Value Reference Range Interpretation [...] GFR is not applicable for dialysis patients Bristle Machine Operator ID - MATT BPT/[id number] 04:30:17* Test Item Value Reference Range Interpretation Comme nts PROTIME (BEAKER) (test code = 759) 13.8 seconds 11.9-14.2 INR (BEAKER) (test code = 370) 1.13 See_Comment [Automated Viralize] The system which generated this result transmitted [...] code = 413) 0 /100 WBC 0-0 [id number] 00:00:00Ordered by an unspecified provider.[facility]HZNSFCY7908-86-24 00:00:00Ordered by an unspecified provider. [facility]-DDXCCTY8344-79-48 00:00:00Ordered by an unspecified provider.[facility]2023-[facility]-25 17:14:06* Test Item Value Reference Range Interpretation Comme nts MAGNESIUM (test code = 1685028557) 1.9 mg/dL 1.7-2.4 Lab Interpretation (test cod e = 96189-2) Normal [facility]COMP[facility] METABOLIC PAN[facility] (94984)2022-12-11 15:16:25* Test Item Value Reference Range Interpretation Comme nts NA (test code = 3482567138) 139 mmol/L 135-145 K (test code = 1759010639) 3.5 mmol/L 3.5-5.0 CL (test code = 2008947790) 107 mmol/L 98-108 CO2 TOTAL (test code = 2758236965) 24 mmol/L 23-31 AGAP (test code = 2046431961) 8 2-16 BUN (test code = 2725848481) 9 mg/dL 7-23 GLUCOSE (test code = 9294283161) 129 mg/dL 70-110 H CREATININE (test code = 4599713762) 0.68 mg/dL 0.50-1.04 TOTAL BILI (test code = 5065151429) 0.5 mg/dL 0.1-1.1 CALCIUM (test code = 8211665210) 8.9 mg/dL 8.6-10.6 T PROTEIN (test code = 7722114396) 6.3 g/dL 6.3-8.2 ALBUMIN (test code = 6636155380) 3.8 g/dL 3.5-5.0 ALK PHOS (test code = 0766266916) 87 U/L 34-122 ALTv (test code = 1742-6) 24 U/L 5-35 AST(SGOT) (test code = 9111540145) 21 U/L 13-40 eGFR (test code = 0428185425) 91.6 mL/min/1.73m2 LYNDSAY (test code = LYNDSAY) [...] imaging tests). Lab Interpretation (test code = 94797-2) Abnormal [facility]villeTR[facility] [id number] 15:10:45* Test Item Value Reference Range Interpretation Comme nts TROPONIN I (test code = 6291417130) 0.015 ng/mL <=0.034 LYNDSAY (test code = [...] of biotin. Lab Interpretation (test code = 67510-9) Normal [facility]villeN-TERMINAL QIV-CIX6189-30-25 15:07:48* Test Item Value Reference Range Interpretation Comme [facility] NT-proBNP (test code = 9873513920) 1460 pg/mL <=125 H LYNDSAY (test code = LYNDSAY) Biotin has been reported to cause a negative bias, interpret results relative to patient's use of biotin. Lab Interpretation (test code = 52733-8) Abnormal [facility] GreenvilleD-RDJRI9229-21-61 14:45:24* Test Item Value Reference Range Interpretation Comments D-DIMER (test code = 7243974231) 0.99 See_Comment H [Automated message] The system [...] a diagnosis. Lab Interpretation (test code = 10144-0) Abnormal [facility] WITH [id number] 14:14:48* Test Item Value Reference Range Interpretation Comme nts WBC (test code = 6690-2) 7.86 See_Comment [Automated Stocarda ge] The system which generated this result transmitted reference range: 4.30 - 11.10 10*3/?L. The reference range was not used to interpret this result as normal/abnormal. RBC (test code = 789-8) 5.13 See_Comment [Automated Stocarda ge] The system which generated this result [...] g/dL 31.6-35.1 L RDW-SD (test code = 13951-9) 47.8 fL 39.0-49.9 RDW-CV (test code = 788-0) 16.9 % 12.0-15.5 H PLT (test code = 777-3) 507 See_Comment H [Automated Stocarda ge] The system which generated this result transmitted reference range: 166 - 358 10*3/?L. The reference range was not used to interpret this result as normal/abnormal. MPV (test code = 69283-2) 8.2 fL 9.5-12.9 L NRBC/100 WBC (test code = 5492629073) 0.0 See_Comment [Automated me ssage] The system which generated this result transmitted reference range: 0.0 - 10.0 /100 WBCs. The reference range was not used to interpret this result as normal/abnormal. NRBC x10^3 (test code = 7273102996) See_Comment [Automated messa ge] The system which generated this result transmitted reference range: 10*3/?L. The reference range was not used to interpret this result as normal/abnormal. GRAN MAT (NEUT) % (test code = 770-8) 64.5 % IMM GRAN % (test code = 4192047276) 0.30 % LYMPH % (test code = 736-9) 25.6 % MONO % (test code = 5905-5) 7.5 % EOS % (test code = 713-8) 1.0 % BASO % (test code = 706-2) 1.1 % GRAN MAT x10^3(ANC) (test code = 0674147350) 5.07 10*3/uL 1.88-7.09 IMM GRAN x10^3 (test code = 9975073830) 0.00-0.06 LYMPH x10^3 (test code = 731-0) 2.01 10*3/uL 1.32-3.29 MONO x10^3 (test code = 742-7) 0.59 10*3/uL 0.33-0.92 EOS x10^3 (test code = 711-2) 0.08 10*3/uL 0.03-0.39 BASO x10^3 (test code = 704-7) 0.09 10*3/uL 0.01-0.07 H Lab Interpretation (test code = 02521-5) [facility]normal [facility]villeRPR2023-[facility] 13:17:22* Test Item Value Reference Range Interpretation Comme nts RPR SCREEN (BEAKER) (test co de = 420) Nonreactive Nonreactive HEMOGLOBIN [id number] 10:39:49* Test Item Value Reference Range Interpretation Comme nts HEMOGLOBIN A1C ELECTROPHORESIS (BEAKER) (test code = 3811) 5.8 % See_Comment H [Automated me ssage] The system which generated this result transmitted reference range: <=5.6%. The reference range was not used to interpret this result as normal/abnormal. "The A1c is measured using a [facility]-certified method. HbA1c value equal to or greater than 6.5% as the diagnosis cutoff for diabetes. An HbA1c value of 5.7- 6.4% indicates increased risk for diabetes (prediabetes)."Bristle Machine Operator ID - ADM VITAMIN [id number] 22:48:27* Test Item Value Reference Range Interpretation Comme nts VITAMIN B12 (BEAKER) (test c ode = 774) 227 pg/mL 213-816 Bristle Machine Operator ID - MARCOTSH/FREE T4 IF [id number] 22:08:28* Test Item Value Reference Range Interpretation Comme nts THYROID STIMULATING HORMONE (BEAKER) (test code = 772) 3.309 uIU/mL 0.350-4.940 Bristle Machine Operator ID - JSHIV-1 ANTIGEN WITH HIV-1/2 [id number] 22:08:28* Test Item Value Reference Range Interpretation Comme nts HIV-1 ANTIGEN WITH HIV 1\\T\\2 ANTIBODY (2) (BEAKER) (test code = 2586) Nonreactive Nonreactive Bristle Machine Operator ID - JSC-REACTIVE [id number] 21:49:44* Test Item Value Reference Range Interpretation Comme nts C-REACTIVE PROTEIN (BEAKER) (test code = 676) 0.35 mg/dL 0.00-0.50 Bristle Machine Operator ID - JSCOMPREHENSIVE METABOLIC [id number] 21:49:43* Test Item Value Reference Range Interpretation [...] GFR is not applicable for dialysis patients Bristle Machine Operator ID - JSLIPID [id number] 21:49:43* Test Item Value Reference Range Interpretation Comme nts TRIGLYCERIDES (BEAKER) (test code = 540) 161 mg/dL CHOLESTEROL (BEAKER) (test c ode = 631) 149 mg/dL HDL CHOLESTEROL (BEAKER) (te st code = 976) 43 mg/dL LDL CHOLESTEROL CALCULATED ( BEAKER) (test code = 633) 74 mg/dL Triglyceride Reference Range: Low Risk <150 Borderline 150-199 High Risk 200- 499 Very High Risk>=500Cholesterol Reference Range: Low Risk <200 Borderline 200-239 High Risk >240HDL Cholesterol Reference Range: Low Risk >=60 High Risk <40LDL Cholesterol Reference Range: Optimal <100 Near Optimal 100-129 Borderline 130-159 High 160-189 Very High >=190 Bristle Machine Operator ID - JSCBC W/PLT COUNT & AUTO [id number] 21:34:03* Test Item Value Reference Range Interpretation [...] Interpretation Comme nts Height (test code = 3613406997) in Weight (test code = 8934292430) lbs Systolic BP (test code = 3523319490) mmHg Diastolic BP (test code = 5663872728) mmHg Heart Rate (test code = 4226610620) bpm BSA (test code = 2369177850) 2.00 m2 Ao root diam (test code = 2866563704) 3.20 cm Aortic root (test code = 3659337638) 3.2 cm Ao root annulus (test code = 3545764566) 3.2 cm LVOT diameter (test code = 6864308096) 1.99 cm LVOT area (test code = 8183097722) 3.10 cm2 LVIDD (test code = 9973320143) 5.10 cm Left Ventricular End Diastolic Volume by Teichholz Method (test code = 4438902) 123.0 mL IVS (test code = 2044764095) 1.34 cm Interventricular Septum Diastolic Thickness by 2D (test code = 7258732) 1.34 cm LVPWD (test code = 7206987467) 1.34 cm PW (test code = 8775061030) 1.34 cm 0.6-1.1 EF(Teich) (test code = 4885392523) 41.80 % LVIDS (test code = 2394857441) 4.00 cm Left Ventricular End Systolic Volume by Teichholz Method (test code = 6795881) 71.5 mL FS (test code = 8112390393) 21 % EF - 2D (test code = 07871230) 41.80 % LA size (test code = 8312308984) 4.6 cm Pulmonic Regurgitant End Max Velocity (test code = 9807370862) 119.4 cm/s LAV(MOD-sp4) (test code = 8499274751) 95.00 mL E wave decelartion time (test code = 4722890056) 0.15 s MV stenosis pressure 1/2 time (test code = 2721273948) 45.6 ms MV Peak A Evette (test code = 0980836324) 123.8 cm/s MV Peak E Evette (test code = 3972506426) 109.7 cm/s E/A ratio (test code = 2615200664) ratio MR max PG (test code = 2811410150) 87.20 mm[Hg] MR max evette (test code = 7585034171) 466.90 cm/s Mr max evette (test code = 3369562897) 466.9 m/s MV Prop V (test code = 1465890849) 51.00 cm/s MV E/e' septal (test code = 1872973053) 8.1 cm/s Tapse (test code = 2500897983) 2.21 cm LVOT stroke volume (test code = 5871442910) 49.80 cm3 LVOT peak evette (test code = 2221407013) 89.1 cm/s LVOT mn grad (test code = 8093830117) mmHg AV LVOT peak gradient (test code = 8785732881) mmHg LVOT peak VTI (test code = 2155815232) 16.0 cm LV V1 mean (test code = 9844284966) 64.30 cm/s Aortic valve mean velocity (test code = 3343037033) 133.8 cm/s Ao peak evette (test code = 0516525460) 175.3 cm/s Ao VTI (test code = 8423844266) 32.2 cm AV area by cont VTI (test code = 1848457020) 1.6 cm2 AV area peak evette (test code = 3341966754) 1.6 cm2 Ao max PG (test code = 0293903747) 12.30 mm[Hg] AV peak gradient (test code = 0151266058) mmHg AV valve area (test code = 8328171155) 1.55 cm2 AV mean gradient (test code = 9824849569) mmHg AV regurgitation pressure 1/2 time (test code = 3853698375) 358.5 ms AI dec slope (test code = 3815617121) 364.20 cm/s2 AI max evette (test code = 5958014583) 445.80 cm/s AI max PG (test code = 8393374129) 79.50 mm[Hg] Radiology Study observation (narrative) (test code = 59414-9) LYNDSAY (test code = LYNDSAY) ?Left?Ventricle: Left [...] mL of Lumason ultrasound enhancing agent [facility]. [facility] 10:43:32* Test Item Value Reference Range Interpretation Comme [facility] POCT GLU (test code = 8474185163) 148 mg/dL 70-110 H Lab Interpretation (test cod e = 25141-6) Abnormal [facility]villeACTIV[facility] THRMPLAS [id number] 18:39:45* Test Item Value Reference Range Interpretation Comme [facility] APTT Patient (test code = 3173-2) See_Comment [Automated message] The system which generated this result transmitted reference range: 23 - 38 Seconds. The reference range was not used to interpret this result as normal/abnormal. LYNDSAY (test code = LYNDSAY) The [facility] patient population mean normal value for aPTT is 30 seconds. Lab Interpretation (test code = 43905-9) Normal [facility]villePROT[facility] / [id number] 18:37:42* Test Item Value Reference Range Interpretation Comme nts PROTIME PATIENT (test code = 5964-2) See_Comment [Automated [employer]] The system which generated this result transmitted reference range: 12.0 - 14.7 Seconds. The reference range was not used to interpret this result as normal/abnormal. INR (test code = 6301-6) Normal INR <1.1; Warfarin Therapeutic range 2.0 to 3.0 or 2.5 to 3.5, depending upon the indications. Lab Interpretation (test code = 48752-0) Normal [facility]villeTR[facility] [id number] 18:32:01* Test Item Value Reference Range Interpretation Comments TROPONIN I (test code = 4459033573) 0.019 ng/mL See_Comment [Automated message] The system [...] of biotin. Lab Interpretation (test code = 06998-5) Normal [facility]ville[facility]-TERMINAL [id number] 18:29:01* Test Item Value Reference Range Interpretation Comme [facility] NT-proBNP (test code = 3493274487) 2770 pg/mL See_Comment H [Automated message] The system which generated this result transmitted reference range: <=125. The reference range was not used to interpret this result as normal/abnormal. LYNDSAY (test code = LYNDSAY) Biotin has been reported to cause a negative bias, interpret results relative to patient's use of biotin. Lab Interpretation (test code = 49557-3) Abnormal [facility]. METABOLIC PANEL (07602)2022-07-31 18:21:42* Test Item Value Reference Range Interpretation Comme nts NA (test code = 3302951679) 136 mmol/L 135-145 K (test code = 0720645056) 4.6 mmol/L 3.5-5.0 CL (test code = 1096727384) 104 mmol/L 98-108 CO2 TOTAL (test code = 0427992371) 26 mmol/L 23-31 AGAP (test code = 2467590098) 2-16 BUN (test code = 5946985551) 9 mg/dL 7-23 GLUCOSE (test code = 7570075781) 97 mg/dL 70-110 CREATININE (test code = 5479935671) 0.64 mg/dL 0.50-1.04 TOTAL BILI (test code = 7846037126) 0.5 mg/dL 0.1-1.1 CALCIUM (test code = 3148772553) 8.2 mg/dL 8.6-10.6 L T PROTEIN (test code = 1721979312) 6.5 g/dL 6.3-8.2 ALBUMIN (test code = 0759786454) 3.9 g/dL 3.5-5.0 ALK PHOS (test code = 5766256136) 93 U/L 34-122 ALTv (test code = 1742-6) 18 U/L 5-35 AST(SGOT) (test code = 8686837667) 19 U/L 13-40 eGFR (test code = 7970739878) mL/min/1.73m2 LYNDSAY (test code = LYNDSAY) Association [...] imaging tests). Lab Interpretation (test code = 57306-6) Abnormal [facility]villeLIPASE2023-01-12 18:21:01* Test Item Value Reference Range Interpretation Comme nts LIPASE (test code = 1494788945) 54 U/L 0-220 Lab Interpretation (test cod e = 72315-2) Normal [facility] WITH [id number] 18:07:00* Test Item Value Reference Range Interpretation Comme nts WBC (test code = 6690-2) See_Comment [Automated Viralize] The system which generated this result transmitted reference range: 4.30 - 11.10 10*3/?L. The reference range was not used to interpret this result as normal/abnormal. RBC (test code = 789-8) See_Comment [Automated [employer]] The system which generated this result transmitted [...] g/dL 31.6-35.1 L RDW-SD (test code = 20717-8) 53.1 fL 39.0-49.9 H RDW-CV (test code = 788-0) 17.0 % 12.0-15.5 H PLT (test code = 777-3) See_Comment H [Automated messa ge] The system which generated this result transmitted reference range: 166 - 358 10*3/?L. The reference range was not used to interpret this result as normal/abnormal. MPV (test code = 73263-0) 8.2 fL 9.5-12.9 L NRBC/100 WBC (test code = 0460502565) See_Comment [Automated Rendeevoo ssage] The system which generated this result transmitted reference range: 0.0 - 10.0 /100 WBCs. The reference range was not used to interpret this result as normal/abnormal. NRBC x10^3 (test code = 8113781483) See_Comment [Automated messa ge] The system which generated this result transmitted reference range: 10*3/?L. The reference range was not used to interpret this result as normal/abnormal. GRAN MAT (NEUT) % (test code = 770-8) 64.0 % IMM GRAN % (test code = 5390020652) 0.40 % LYMPH % (test code = 736-9) 27.3 % MONO % (test code = 5905-5) 6.5 % EOS % (test code = 713-8) 1.1 % BASO % (test code = 706-2) 0.7 % GRAN MAT x10^3(ANC) (test code = 7483102830) 5.46 10*3/uL 1.88-7.09 IMM GRAN x10^3 (test code = 5004371871) 0.03 10*3/uL 0.00-0.06 LYMPH x10^3 (test code = 731-0) 2.32 10*3/uL 1.32-3.29 MONO x10^3 (test code = 742-7) 0.55 10*3/uL 0.33-0.92 EOS x10^3 (test code = 711-2) 0.09 10*3/uL 0.03-0.39 BASO x10^3 (test code = 704-7) 0.06 10*3/uL 0.01-0.07 Lab Interpretation (test code = 29017-6) Abnormal [facility] (NA, K, CL, CO2, GLUCOSE, BUN, CREATININE, CA)2022-05-08 06:37:01* Test Item Value Reference Range Interpretation Comme nts NA (test code = 8307271519) 137 mmol/L 135-145 K (test code = 9217044553) 3.8 mmol/L 3.5-5 CL (test code = 4748024310) 103 mmol/L 98-108 CO2 TOTAL (test code = 4121977196) 24 mmol/L 23-31 AGAP (test code = 8228615374) 2-16 BUN (test code = 7796923094) 13 mg/dL 7-23 GLUCOSE (test code = 4850486890) 90 mg/dL 70-110 CREATININE (test code = 4789703451) 0.69 mg/dL 0.5-1.04 CALCIUM (test code = 9571325658) 8.5 mg/dL 8.6-10.6 L eGFR (test code = 3415511122) mL/min/1.73m2 LYNDSAY (test code = LYNDSAY) Association [...] imaging tests). Lab Interpretation (test code = 78323-3) Abnormal [facility]villeMAGNESIUM2022-10-20 06:37:01* Test Item Value Reference Range Interpretation Comme nts MAGNESIUM (test code = 2334117374) 2.1 mg/dL 1.7-2.4 Lab Interpretation (test cod e = 60042-2) Normal [facility]villePHOSPHORUS2022-10-20 06:37:01* Test Item Value Reference Range Interpretation Comme nts PHOSPHORUS (test code = 0897231241) 4.7 mg/dL 2.5-5 Lab Interpretation (test cod e = 18766-7) Normal [facility] GreenvilleCBC WITH [id number] 06:11:54* Test Item Value Reference Range Interpretation Comme nts WBC (test code = 6690-2) See_Comment [Automated [employer]] The system which generated this result transmitted reference range: 4.30 - 11.10 10*3/?L. The reference range was not used to interpret this result as normal/abnormal. RBC (test code = 789-8) See_Comment [Automated [employer]] The system which generated this result transmitted [...] 32.4 g/dL 31.6-35.1 RDW-SD (test code = 91869-4) 51.0 fL 39-49.9 H RDW-CV (test code = 788-0) 16.5 % 12-15.5 H PLT (test code = 777-3) See_Comment H [Automated messa ge] The system which generated this result transmitted reference range: 166 - 358 10*3/?L. The reference range was not used to interpret this result as normal/abnormal. MPV (test code = 28692-0) 8.3 fL 9.5-12.9 L NRBC/100 WBC (test code = 9974254779) See_Comment [Automated me ssage] The system which generated this result transmitted reference range: 0.0 - 10.0 /100 WBCs. The reference range was not used to interpret this result as normal/abnormal. NRBC x10^3 (test code = 0273263807) See_Comment [Automated messa ge] The system which generated this result transmitted reference range: 10*3/?L. The reference range was not used to interpret this result as normal/abnormal. GRAN MAT (NEUT) % (test code = 770-8) 64.5 % IMM GRAN % (test code = 5032336360) 0.50 % LYMPH % (test code = 736-9) 27.1 % MONO % (test code = 5905-5) 6.6 % EOS % (test code = 713-8) 0.6 % BASO % (test code = 706-2) 0.7 % GRAN MAT x10^3(ANC) (test code = 7360382084) 5.28 10*3/uL 1.88-7.09 IMM GRAN x10^3 (test code = 2999875141) 0.04 10*3/uL 0-0.06 LYMPH x10^3 (test code = 731-0) 2.22 10*3/uL 1.32-3.29 MONO x10^3 (test code = 742-7) 0.54 10*3/uL 0.33-0.92 EOS x10^3 (test code = 711-2) 0.05 10*3/uL 0.03-0.39 BASO x10^3 (test code = 704-7) 0.06 10*3/uL 0.01-0.07 Lab Interpretation (test code = 97466-2) Abnormal [facility] GLUCOSE (AUTOMATED)2022-05-07 01:18:10* Test Item Value Reference Range Interpretation Comme nts POCT GLU (test code = 9800145952) 120 mg/dL 70-110 H Lab Interpretation (test cod e = 78292-0) Abnormal [facility]villeType and Screen - ONCE [id number] 05:46:35* Test Item Value Reference Range Interpretation Comme nts ABO & RH (test code = 20) O POSITIVE Performed at [facility] Laboratory Services - [facility] Blood [address] Free: [phone] No. [id number] IAT (test code = 1185) Negative Performed at [facility] Laboratory Services - [facility] Blood [address] Free: [phone] No. [id number] [facility]villeBAS[facility] METABOLIC PANEL (NA, K, CL, CO2, GLUCOSE, BUN, CREATININE, CA)2022-05-05 08:22:57* Test Item Value Reference Range Interpretation Comme [facility] NA (test code = 7176063386) 136 mmol/L 135-145 K (test code = 2514793416) 4.9 mmol/L 3.5-5 CL (test code = 3398023692) 108 mmol/L 98-108 CO2 TOTAL (test code = 4612890736) 22 mmol/L 23-31 L AGAP (test code = 6372690219) 2-16 BUN (test code = 9399538805) 12 mg/dL 7-23 GLUCOSE (test code = 7340957777) 155 mg/dL 70-110 H CREATININE (test code = 3605738624) 0.63 mg/dL 0.5-1.04 CALCIUM (test code = 5284784262) 8.4 mg/dL 8.6-10.6 L eGFR (test code = 2850062018) mL/min/1.73m2 LYNDSAY (test code = LYNDSAY) Association [...] imaging tests). Lab Interpretation (test code = 62519-4) Abnormal [facility] GreenvillePROTHROMBIN TIME / [id number] 08:22:37* Test Item Value Reference Range Interpretation Comme [facility] PROTIME PATIENT (test code = 5964-2) See_Comment [[employer]] The system which generated this result transmitted reference range: 10.1 - 12.6 Seconds. The reference range was not used to interpret this result as normal/abnormal. INR (test code = 6301-6) Normal INR <1.1; Warfarin Therapeutic range 2.0 to 3.0 or 2.5 to 3.5, depending upon the indications. Lab Interpretation (test code = 67983-0) Normal [facility] GreenvilleaPTT2022-10-17 08:22:37* Test Item Value Reference Range Interpretation Comme [facility] APTT Patient (test code = 3173-2) See_Comment [[employer]] The system which generated this result transmitted reference range: 26 - 36 Seconds. The reference range was not used to interpret this result as normal/abnormal. Lab Interpretation (test code = 68045-8) Normal [facility] GreenvilleFIBRINOGEN2022-10-17 08:22:37* Test Item Value Reference Range Interpretation Comme [facility] Fibrinogen (test code = 2931639320) 294 mg/dL 167-453 Lab Interpretation (test cod e = 64301-4) Normal [facility] WITH [id number] 08:15:01* Test Item Value Reference Range Interpretation [...] g/dL 31.6-35.1 L RDW-SD (test code = 69875-2) 52.9 fL 39-49.9 H RDW-CV (test code = 788-0) 16.8 % 12-15.5 H PLT (test code = 777-3) See_Comment H [Automated messa ge] The system which generated this result transmitted reference range: 166 - 358 10*3/?L. The reference range was not used to interpret this result as normal/abnormal. MPV (test code = 81055-8) 8.3 fL 9.5-12.9 L NRBC/100 WBC (test code = 7859233803) See_Comment [Automated me ssage] The system which generated this result transmitted reference range: 0.0 - 10.0 /100 WBCs. The reference range was not used to interpret this result as normal/abnormal. NRBC x10^3 (test code = 9136101430) See_Comment [Automated messa ge] The system which generated this result transmitted reference range: 10*3/?L. The reference range was not used to interpret this result as normal/abnormal. GRAN MAT (NEUT) % (test code = 770-8) 86.4 % IMM GRAN % (test code = 5781525212) 0.40 % LYMPH % (test code = 736-9) 11.7 % MONO % (test code = 5905-5) 1.1 % EOS % (test code = 713-8) 0.0 % BASO % (test code = 706-2) 0.4 % GRAN MAT x10^3(ANC) (test code = 3924765248) 6.36 10*3/uL 1.88-7.09 IMM GRAN x10^3 (test code = 2366894379) 0.03 10*3/uL 0-0.06 LYMPH x10^3 (test code = 731-0) 0.86 10*3/uL 1.32-3.29 L MONO x10^3 (test code = 742-7) 0.08 10*3/uL 0.33-0.92 L EOS x10^3 (test code = 711-2) 0.03-0.39 L BASO x10^3 (test code = 704-7) 0.03 10*3/uL 0.01-0.07 Lab Interpretation (test code = 82479-2) Abnormal [facility]villeVIT[facility]IN D, [id number] 20:14:03* Test Item Value Reference Range Interpretation Comme [facility] VIT D 25OH (test code = 93386-5) 22 ng/mL 25-80 L LYNDSAY (test code = LYNDSAY) Deficiency: <20 ng/mLInsufficiency: 20-24 ng/mLOptimal: 25-80 ng/mL Lab Interpretation (test code = 68051-6) Abnormal [facility]villeBASI METABOLIC PANEL (NA, K, CL, CO2, GLUCOSE, BUN, CREATININE, CA)2022-04-15 11:27:57* Test Item Value Reference Range Interpretation Comme nts NA (test code = 9365855358) 138 mmol/L 135-145 K (test code = 7998450809) 3.9 mmol/L 3.5-5 CL (test code = 1219561233) 106 mmol/L 98-108 CO2 TOTAL (test code = 4503284961) 23 mmol/L 23-31 AGAP (test code = 7249499325) 2-16 BUN (test code = 7526266295) 10 mg/dL 7-23 GLUCOSE (test code = 5417312826) 91 mg/dL 70-110 CREATININE (test code = 2283181734) 0.65 mg/dL 0.5-1.04 CALCIUM (test code = 3617500795) 8.1 mg/dL 8.6-10.6 L eGFR (test code = 5348324594) mL/min/1.73m2 LYNDSAY (test code = LYNDSAY) Association [...] imaging tests). Lab Interpretation (test code = 40016-2) Abnormal [facility]ST[facility] - Transthoracic echo (TTE) 2022-04-14 22:07:33* Test Item Value Reference Range Interpretation Comme nts Height (test code = 1997863317) in Weight (test code = 6845590318) lbs Systolic BP (test code = 7560771715) mmHg Diastolic BP (test code = 5221526167) mmHg Heart Rate (test code = 9244700956) bpm BSA (test code = 3067521923) 1.94 m2 TASV (test code = 3738952326) 15.5 cm/s LVIDD (test code = 1892204294) 6.00 cm Left Ventricular End Diastolic Volume by Teichholz Method (test code = 0266298) 183.0 mL IVS (test code = 1270175353) 1.09 cm Interventricular Septum Diastolic Thickness by 2D (test code = 7782201) 1.09 cm LVPWD (test code = 6291864867) 0.94 cm PW (test code = 2589714782) 0.94 cm 0.6-1.1 EF(Teich) (test code = 4942246281) 40.30 % LVIDS (test code = 2091872051) 4.80 cm Left Ventricular End Systolic Volume by Teichholz Method (test code = 6680200) 109.2 mL FS (test code = 1871199626) 20 % EF - 2D (test code = 21022519) 40.30 % LVOT diameter (test code = 5771527120) 2.05 cm LVOT area (test code = 9703346119) 3.30 cm2 Ao root diam (test code = 0269807492) 3.10 cm Aortic root (test code = 2642241538) 3.1 cm Ao root annulus (test code = 7780092343) 3.1 cm LA size (test code = 8914448658) 4.2 cm LAV(MOD-sp4) (test code = 0515029176) 64.90 mL MV Peak A Evette (test code = 0656578528) 115.7 cm/s E wave decelartion time (test code = 0871870019) 0.15 s MV Peak E Evette (test code = 3670022278) 106.2 cm/s E/A ratio (test code = 8960828400) ratio LVOT stroke volume (test code = 8419926120) 48.30 cm3 LVOT peak evette (test code = 0729723192) 78.4 cm/s LVOT mn grad (test code = 6148674009) mmHg AV LVOT peak gradient (test code = 8597669023) mmHg LVOT peak VTI (test code = 7594766201) 14.7 cm LV V1 mean (test code = 4774811593) 51.40 cm/s Ao peak evette (test code = 0344978504) 154.7 cm/s AV area peak evette (test code = 5685901503) 1.7 cm2 Ao max PG (test code = 2647042896) 9.60 mm[Hg] AV peak gradient (test code = 8993877919) mmHg AV regurgitation pressure 1/2 time (test code = 4833670767) 257.3 ms AI dec slope (test code = 0388052799) 498.10 cm/s2 AI max evette (test code = 2212309618) 437.60 cm/s AI max PG (test code = 1301525247) 77.80 mm[Hg] Tapse (test code = 4861239635) 2.19 cm LA Volume Index (BP) (test code = 0575923915) 32.0 mL/m2 LA volume (BP) (test code = 0557379457) 62.1 mL LAV(MOD-sp2) (test code = 7204488374) 52.70 mL A4C EF (test code = 0090783807) 44.80 % EF(sp4-el) (test code = 7101234433) 45.20 % SV(MOD-sp4) (test code = 4118232067) 71.20 mL SV(sp4-el) (test code = 6056541924) 73.90 mL LV Diastolic Volume (BP) (test code = 7935423096) 146.3 mL A2C EF (test code = 2704204212) 52.00 % EF(MOD-bp) (test code = 0825910943) 46.70 % EF(sp2-el) (test code = 4472612856) 52.40 % LV Systolic Volume (BP) (test code = 9371037844) 77.9 mL SV(MOD-bp) (test code = 0334823262) 68.40 mL SV(MOD-sp2) (test code = 9255478054) 69.20 mL EF (test code = 8421346328) Left Ventricular Stroke Volume by 2-D Biplane-MOD (test code = 0390193) 68.4 mL Radiology Study observation (narrative) (test code = 34214-3) LYNDSAY (test code = LYNDSAY) ?Left?Ventricle: Left [...] agent used and saline contrast was performed. [facility] (LEVETIRACETAM)2022-04-14 16:48:36* Test Item Value Reference Range Interpretation Comme nts KEPPRA (test code = 6707494591) 12-46 L LYNDSAY (test code = LYNDSAY) Therapeutic range: 12-46 ?g/mL ? ?Toxic: Not well established.Test developed and characteristics determined by [facility] Laboratory Services. Lab Interpretation (test code = 06460-5) Abnormal [facility] Metabolic Panel (Na, K, Cl, CO2, Glucose, BUN, Creatinine, Ca)2022-04-14 10:50:11* Test Item Value Reference Range Interpretation Comme nts NA (test code = 9865547359) 136 mmol/L 135-145 K (test code = 8835285866) 3.8 mmol/L 3.5-5 CL (test code = 3537847851) 105 mmol/L 98-108 CO2 TOTAL (test code = 9256774208) 25 mmol/L 23-31 AGAP (test code = 7413356620) 2-16 BUN (test code = 2528789658) 9 mg/dL 7-23 GLUCOSE (test code = 6881914739) 101 mg/dL 70-110 CREATININE (test code = 5927430515) 0.66 mg/dL 0.5-1.04 CALCIUM (test code = 6539028672) 8.1 mg/dL 8.6-10.6 L eGFR (test code = 8646851526) mL/min/1.73m2 LYNDSAY (test code = LYNDSAY) Association [...] imaging tests). Lab Interpretation (test code = 46907-9) Abnormal [facility]villeMagensium, [id number] 10:50:11* Test Item Value Reference Range Interpretation Comme nts MAGNESIUM (test code = 1043322527) 1.9 mg/dL 1.7-2.4 Lab Interpretation (test cod e = 79462-0) Normal [facility]villeThyroid Stimulating [id number] 22:21:44 * Test Item Value Reference Range Interpretation Comme nts TSH (test code = 3647542830) See_Comment Biotin has been reported to cause a negative bias, interpret results relative to patient's use of biotin. [Automated message] The system which generated this result transmitted reference range: 0.45 - 4.70 mIU/L. The reference range was not used to interpret this result as normal/abnormal. Lab Interpretation (test code = 49832-3) Normal [facility]villeGLYCOSYLATED HEMOGLOBIN (A1C)2022-04-13 21:53:43* Test Item Value Reference Range Interpretation Comme nts HGB A1C (test code = 4548-4) 5.8 % 4-5.7 H LYNDSAY (test code = LYNDSAY) Reference RangesNormal: <5.7%Prediabetes: 5.7 - 6.4%Diabetes: > 6.5% Lab Interpretation (test code = 62622-7) Abnormal [facility] GreenvilleFASTING LIPID PANEL (22014)(TOTAL CHOLESTEROL, TRIGLYCERIDES, HDL)2022-04-13 21:34:53* Test Item Value Reference Range Interpretation Comme nts CHOL (test code = 3080454285) 201 mg/dL 120-200 H HDL (test code = 6371367940) 56 mg/dL See_Comment [Automated Viralize] The system which generated this result transmitted reference range: >=50. The reference range was not used to interpret this result as normal/abnormal. HDLC RATIO (test code = 8577820186) See_Comment [Automated Viralize] The system which generated this result transmitted reference range: <=4.5. The reference range was not used to interpret this result as normal/abnormal. TRIG (test code = 8844546571) 355 mg/dL 30-170 H LDL CHOL (test code = 67410-9) 74 mg/dL See_Comment [Automated Viralize] The system which generated this result transmitted reference range: <=160. The reference range was not used to interpret this result as normal/abnormal. VLDL (test code = 3478641906) 71 mg/dL 5-60 H Lab Interpretation (test code = 97521-2) Abnormal [facility]villeTroponin I - Code [id number] 18:46:27* Test Item Value Reference Range Interpretation Comments TROPONIN I (test code = 5821820254) 0.013 ng/mL See_Comment [Automated message] The system [...] of biotin. Lab Interpretation (test code = 38312-6) Normal [facility] GreenvilleBasi Metabolic Panel (NA, K, CL, CO2, Glucose, BUN, Creatinine, CA) - Code [id number] 18:35:07* Test Item Value Reference Range Interpretation Comme nts NA (test code = 1781090233) 136 mmol/L 135-145 K (test code = 3737515670) 4.3 mmol/L 3.5-5 CL (test code = 0772715363) 105 mmol/L 98-108 CO2 TOTAL (test code = 5995726037) 27 mmol/L 23-31 AGAP (test code = 7062985871) 2-16 BUN (test code = 3507646759) 8 mg/dL 7-23 GLUCOSE (test code = 1373484128) 130 mg/dL 70-110 H CREATININE (test code = 8298323685) 0.75 mg/dL 0.5-1.04 CALCIUM (test code = 4279448025) 8.5 mg/dL 8.6-10.6 L eGFR (test code = 7508752624) mL/min/1.73m2 LYNDSAY (test code = LYNDSAY) Association [...] imaging tests). Lab Interpretation (test code = 55999-9) Abnormal [facility]villeaPTT - Code [id number] 18:32:46* Test Item Value Reference Range Interpretation Comme nts APTT Patient (test code = 3173-2) See_Comment [Automated message] The system which generated this result transmitted reference range: 23 - 38 Seconds. The reference range was not used to interpret this result as normal/abnormal. LYNDSAY (test code = LYNDSAY) The [facility] patient population mean normal value for aPTT is 30 seconds. Lab Interpretation (test code = 28831-4) Normal [facility]villeProthrombin Time / INR - Code [id number] 18:30:45* Test Item Value Reference Range Interpretation [...] the indications. Lab Interpretation (test code = 69698-2) Normal [facility] GreenvilleCBC without Diff - Code [id number] 18:23:07* Test Item Value Reference Range Interpretation Comme [facility] WBC (test code = 6690-2) See_Comment [...] result as normal/abnormal. MPV (test code = 88938-7) 8.1 fL 9.5-12.9 L RDW-CV (test code = 788-0) 16.1 % 12-15.5 H RDW-SD (test code = 67441-6) 49.2 fL 39-49.9 NRBC x10^3 (test code = 2294693745) See_Comment [Automated [employer]] The system which generated this result transmitted reference range: 10*3/?L. The reference range was not used to interpret this result as normal/abnormal. NRBC/100 WBC (test code = 4218369713) See_Comment [Automated [employer]] The system which generated this result transmitted reference range: 0.0 - 10.0 /100 WBCs. The reference range was not used to interpret this result as normal/abnormal. IPF % (test code = 7615443188) Lab Interpretation (test code = 10650-3) [id number] 21:06:40* Test Item Value Reference Range Interpretation Comments TROPONIN I (test code = 2796639527) 0.005 ng/mL See_Comment [Automated message] The system [...] of biotin. Lab Interpretation (test code = 09808-8) Normal [facility]. METABOLIC PANEL (52737)2021-11-23 20:55:42* Test Item Value Reference Range Interpretation Comme nts NA (test code = 0100469552) 137 mmol/L 135-145 K (test code = 7284774608) 4.3 mmol/L 3.5-5.0 CL (test code = 5542455383) 104 mmol/L 98-108 CO2 TOTAL (test code = 2250846967) 22 mmol/L 23-31 L AGAP (test code = 9007269605) 2-16 BUN (test code = 2923827301) 15 mg/dL 7-23 GLUCOSE (test code = 0214526177) 114 mg/dL 70-110 H CREATININE (test code = 8515526532) 0.68 mg/dL 0.50-1.04 TOTAL BILI (test code = 4651435429) 0.5 mg/dL 0.1-1.1 CALCIUM (test code = 2314736092) 9.1 mg/dL 8.6-10.6 T PROTEIN (test code = 4791332637) 7.3 g/dL 6.3-8.2 ALBUMIN (test code = 9262724119) 4.4 g/dL 3.5-5.0 ALK PHOS (test code = 2695293120) 243 U/L 34-122 H ALTv (test code = 1742-6) 24 U/L 5-35 AST(SGOT) (test code = 8066113724) 30 U/L 13-40 eGFR (test code = 6196257520) mL/min/1.73m2 LYNDSAY (test code = LYNDSAY) Association [...] imaging tests). Lab Interpretation (test code = 07351-0) Abnormal [facility]villeLIPASE2022-05-07 20:55:22* Test Item Value Reference Range Interpretation Comme nts LIPASE (test code = 7795437787) 96 U/L 0-220 Lab Interpretation (test cod e = 79981-2) Normal [facility]villePOCT [id number] 20:46:00* Test Item Value Reference Range Interpretation Comme nts POCT PREG (test code = 1605) negative On board controls acceptable with C Line (test code = 3574) present POCT PREG LOT # (test code = 3575) [id number] POCT PREG TEST DATE ( test code = 3576) 04/18/2023 Lab Interpretation (test cod e = 47284-7) Normal [facility] GreenvilleCBC WITH [id number] 20:40:38* Test Item Value Reference Range Interpretation Comme nts WBC (test code = 6690-2) See_Comment [Automated Viralize] The system which generated this result transmitted reference range: 4.30 - 11.10 10*3/?L. The reference range was not used to interpret this result as normal/abnormal. RBC (test code = 789-8) See_Comment [Automated [employer]] The system which generated this result transmitted [...] 31.8 g/dL 31.6-35.1 RDW-SD (test code = 94417-6) 53.7 fL 39.0-49.9 H RDW-CV (test code = 788-0) 17.2 % 12.0-15.5 H PLT (test code = 777-3) See_Comment H [Automated Stocarda ge] The system which generated this result transmitted reference range: 166 - 358 10*3/?L. The reference range was not used to interpret this result as normal/abnormal. MPV (test code = 14821-5) 8.5 fL 9.5-12.9 L NRBC/100 WBC (test code = 8850523587) See_Comment [Automated Rendeevoo ssage] The system which generated this result transmitted reference range: 0.0 - 10.0 /100 WBCs. The reference range was not used to interpret this result as normal/abnormal. NRBC x10^3 (test code = 4570725580) <0.01 See_Comment [Automated Stocarda ge] The system which generated this result transmitted reference range: 10*3/?L. The reference range was not used to interpret this result as normal/abnormal. GRAN MAT (NEUT) % (test code = 770-8) 53.7 % IMM GRAN % (test code = 4402213481) 0.90 % LYMPH % (test code = 736-9) 32.6 % MONO % (test code = 5905-5) 10.1 % EOS % (test code = 713-8) 1.5 % BASO % (test code = 706-2) 1.2 % GRAN MAT x10^3(ANC) (test code = 0625026893) 4.98 10*3/uL 1.88-7.09 IMM GRAN x10^3 (test code = 9392810273) 0.08 10*3/uL 0.00-0.06 H LYMPH x10^3 (test code = 731-0) 3.02 10*3/uL 1.32-3.29 MONO x10^3 (test code = 742-7) 0.94 10*3/uL 0.33-0.92 H EOS x10^3 (test code = 711-2) 0.14 10*3/uL 0.03-0.39 BASO x10^3 (test code = 704-7) 0.11 10*3/uL 0.01-0.07 H Lab Interpretation (test code = 28429-0) Abnormal [facility]villePOCT GLUCOSE (AUTOMATED)2021-11-23 20:17:33* Test Item Value Reference Range Interpretation Comme nts POCT GLU (test code = 6369015585) 111 mg/dL 70-110 H Notified Provide r Lab Interpretation (test code = 40350-1) Abnormal [facility]villePAP TEST, THINPREP, [id number] 00:00:00 * Test Item Value Reference Range Interpretation Comme nts SOURCE: (test code = 8001) Endocervical SLIDES: (test code = 8011) 1 LMP: (test code = 8021) 06/03/2021 SPECIMEN ADEQUACY: (test code = 05798) (NOTE) INTERPRETATION: (test code = 07790) ASCUS/EPITH. ABNORMALITY; SEE BELOW [place]: (test code = 8101) Anusha DerickMA(ASC)[facility] INTERPRETATION BY: (test code = 8122) Nahid Russell M.D. LOCATION: (test code = 77920) (NOTE) CPT: (test code = 8140) (NOTE) PAP TEST, THINPREP, [id number] 00:00:00* Test Item Value Reference Range Interpretation Comme nts SOURCE: (test code = 8001) Endocervical SLIDES: (test code = 8011) 1 LMP: (test code = 8021) 06/03/2021 SPECIMEN ADEQUACY: (test code = 88996) (NOTE) INTERPRETATION: (test code = 36165) ASCUS/EPITH. ABNORMALITY; SEE BELOW [place]: (test code = 8101) Anusha SepulvedaMA(ASC)[facility] INTERPRETATION BY: (test code = 8122) Nahid Russell M.D. LOCATION: (test code = 49542) (NOTE) CPT: (test code = 8140) (NOTE) PAP TEST, THINPREP, [id number] 00:00:00* Test Item Value Reference Range Interpretation Comme nts SOURCE: (test code = 8001) Endocervical SLIDES: (test code = 8011) 1 LMP: (test code = 8021) 06/03/2021 SPECIMEN ADEQUACY: (test code = 59361) (NOTE) INTERPRETATION: (test code = 19136) ASCUS/EPITH. ABNORMALITY; SEE BELOW [place]: (test code = 8101) CHANA Thacker(ASCP)[facility] PATH[facility] INTERPRETATION BY: (test code = 8122) Nahid Russell M.D. LOCATION: (test code = 38359) (NOTE) CPT: (test code = 8140) (NOTE) PAP TEST, THINPREP, [id number] 00:00:00* Test Item Value Reference Range Interpretation Comme nts SOURCE: (test code = 8001) Endocervical SLIDES: (test code = 8011) 1 LMP: (test code = 8021) 06/03/2021 SPECIMEN ADEQUACY: (test code = 89473) (NOTE) INTERPRETATION: (test code = 10401) ASCUS/EPITH. ABNORMALITY; SEE BELOW [place]: (test code = 8101) CHANA Thacker(ASCP)[facility] INTERPRETATION BY: (test code = 8122) Nahid Russell M.D. LOCATION: (test code = 73067) (NOTE) CPT: (test code = 8140) (NOTE) HPV HIGH RISK WITH GENOTYPE, [id number] 00:00:00* Test Item Value Reference Range Interpretation Comme nts HPV HIGH RISK INTERP (test c ode = 83756) POSITIVE HPV 16 (test code = 47827) POSITIVE HPV 18 (test code = 49105) NEGATIVE HPV, HR, OTHER GENOTYPES (te st code = 37399) POSITIVE HPV HIGH RISK WITH GENOTYPE, [id number] 00:00:00* Test Item Value Reference Range Interpretation Comme nts HPV HIGH RISK INTERP (test c ode = 47371) POSITIVE HPV 16 (test code = 90297) POSITIVE HPV 18 (test code = 88137) NEGATIVE HPV, HR, OTHER GENOTYPES (te st code = 26396) POSITIVE HPV HIGH RISK WITH GENOTYPE, [id number] 00:00:00* Test Item Value Reference Range Interpretation Comme nts HPV HIGH RISK INTERP (test c ode = 21744) POSITIVE HPV 16 (test code = 61505) POSITIVE HPV 18 (test code = 08480) NEGATIVE HPV, HR, OTHER GENOTYPES (te st code = 09573) POSITIVE HPV HIGH RISK WITH GENOTYPE, [id number] 00:00:00* Test Item Value Reference Range Interpretation Comme nts HPV HIGH RISK INTERP (test c ode = 96731) POSITIVE HPV 16 (test code = 31359) POSITIVE HPV 18 (test code = 23880) NEGATIVE HPV, HR, OTHER GENOTYPES (te st code = 07312) POSITIVE [id number] 03:22:48* Test Item Value Reference Range Interpretation Comme nts APPEARANCE (test code = 8596810055) Hazy Clear A COLOR (test code = 5050979516) Yellow Yellow PH (test code = 5332674280) 4.8-8.0 SP GRAVITY (test code = 0274601837) 1.003-1.030 GLU U QUAL (test code = 3370887199) Normal Normal BLOOD (test code = 8737679182) Negative Negative Interference fro m ascorbic acid may cause false negative results. KETONES (test code = 1077938916) 5 mg/dL Negative A PROTEIN (test code = 2887-8) Negative Negative UROBILIN (test code = 4489379574) 4.0 mg/dL Normal A BILIRUBIN (test code = 6151524145) Negative Negative NITRITE (test code = 3611173524) Negative Negative LEUK GRUPO (test code = 7962056475) Negative Negative RBC/HPF (test code = 4192625053) See_Comment [Automated Stocarda ge] The system which generated this result transmitted reference range: 0 - 3 HPF. The reference range was not used to interpret this result as normal/abnormal. WBC/HPF (test code = 8622577530) <1 See_Comment [Automated Stocarda ge] The system which generated this result transmitted reference range: 0 - 5 HPF. The reference range was not used to interpret this result as normal/abnormal. BACTERIA (test code = 2088985722) Few Negative A SQ EPITH (test code = 9865568086) HPF Lab Interpretation (test code = 88764-6) [facility]normal [facility]villeURINALYSIS2021-[facility]-29 03:22:48* Test Item Value Reference Range Interpretation Comme nts APPEARANCE (test code = 4282788944) Hazy Clear A COLOR (test code = 4960476913) Yellow Yellow PH (test code = 7665043445) 4.8-8.0 SP GRAVITY (test code = 2356476439) 1.003-1.030 GLU U QUAL (test code = 8486649719) Normal Normal BLOOD (test code = 3176977073) Negative Negative KETONES (test code = 0590114888) 5 mg/dL Negative A PROTEIN (test code = 2887-8) Negative Negative UROBILIN (test code = 2265398482) 4.0 mg/dL Normal A BILIRUBIN (test code = 3915329100) Negative Negative NITRITE (test code = 8856862985) Negative Negative LEUK GRUPO (test code = 9492567412) Negative Negative RBC/HPF (test code = 4959602486) See_Comment [Automated Viralize] The system which generated this result transmitted reference range: 0 - 3 HPF. The reference range was not used to interpret this result as normal/abnormal. WBC/HPF (test code = 3757499096) <1 See_Comment [Automated Viralize] The system which generated this result transmitted reference range: 0 - 5 HPF. The reference range was not used to interpret this result as normal/abnormal. BACTERIA (test code = 8208724403) Few Negative A SQ EPITH (test code = 4072459797) HPF Lab Interpretation (test code = 12919-3) Abnormal [facility] [id number] 02:45:00* Test Item Value Reference Range Interpretation Comments TROPONIN I (test code = 7638387966) 0.002 ng/mL See_Comment [Automated message] The system [...] of biotin. Lab Interpretation (test code = 51757-0) Normal [facility]villeTROPONIN [id number] 02:45:00* Test Item Value Reference Range Interpretation Comme nts TROPONIN I (test code = 9747307333) 0.002 ng/mL See_Comment [Automated messa ge] The system which generated this result transmitted reference range: <=0.034. The reference range was not used to interpret this result as normal/abnormal. LYNDSAY (test code = LYNDSAY) Lab Interpretation (test code = 33884-7) Normal [facility]villeN-TERMINAL [id number] 02:41:57* Test Item Value Reference Range Interpretation Comme nts NT-proBNP (test code = 7911172294) 169 pg/mL See_Comment H [Automated message] The system which generated this result transmitted reference range: <=125. The reference range was not used to interpret this result as normal/abnormal. LYNDSAY (test code = LYNDSAY) Biotin has been reported to cause a negative bias, interpret results relative to patient's use of biotin. Lab Interpretation (test code = 07997-0) Abnormal [facility]villeN-TERMINAL [id number] 02:41:57* Test Item Value Reference Range Interpretation Comme nts NT-proBNP (test code = 2997481480) 169 pg/mL See_Comment H [Automated [employer]] The system which generated this result transmitted reference range: <=125. The reference range was not used to interpret this result as normal/abnormal. LYNDSAY (test code = LYNDSAY) Lab Interpretation (test code = 07567-6) Abnormal [facility]. METABOLIC PANEL (15227)2021-03-17 02:09:13* Test Item Value Reference Range Interpretation Comme nts NA (test code = 9308981690) 137 mmol/L 135-145 K (test code = 4988105312) 4.2 mmol/L 3.5-5.0 CL (test code = 1142326028) 102 mmol/L 98-108 CO2 TOTAL (test code = 1635567745) 25 mmol/L 23-31 AGAP (test code = 6903359443) 2-16 BUN (test code = 7962409955) 18 mg/dL 7-23 GLUCOSE (test code = 0583208396) 144 mg/dL 70-110 H CREATININE (test code = 4681532360) 0.77 mg/dL 0.50-1.04 TOTAL BILI (test code = 9193876919) 0.4 mg/dL 0.1-1.1 CALCIUM (test code = 7137637102) 8.9 mg/dL 8.6-10.6 T PROTEIN (test code = 3988580030) 6.8 g/dL 6.3-8.2 ALBUMIN (test code = 1080098026) 3.9 g/dL 3.5-5.0 ALK PHOS (test code = 4200269409) 84 U/L 34-122 ALTv (test code = 1742-6) 13 U/L 5-35 AST(SGOT) (test code = 4865301690) 17 U/L 13-40 eGFR (test code = 2234474595) mL/min/1.73m2 LYNDSAY (test code = LYNDSAY) Association [...] imaging tests). Lab Interpretation (test code = 98543-2) Abnormal [facility]. METABOLIC PANEL (15723)2021-03-17 02:09:13* Test Item Value Reference Range Interpretation Comme nts NA (test code = 8605976003) 137 mmol/L 135-145 K (test code = 5796358929) 4.2 mmol/L 3.5-5.0 CL (test code = 4622638664) 102 mmol/L 98-108 CO2 TOTAL (test code = 2215264888) 25 mmol/L 23-31 AGAP (test code = 8329317782) 2-16 BUN (test code = 2282424622) 18 mg/dL 7-23 GLUCOSE (test code = 8406800399) 144 mg/dL 70-110 H CREATININE (test code = 4360766794) 0.77 mg/dL 0.50-1.04 TOTAL BILI (test code = 2501690187) 0.4 mg/dL 0.1-1.1 CALCIUM (test code = 0189765341) 8.9 mg/dL 8.6-10.6 T PROTEIN (test code = 1858777849) 6.8 g/dL 6.3-8.2 ALBUMIN (test code = 9569059081) 3.9 g/dL 3.5-5.0 ALK PHOS (test code = 0455925671) 84 U/L 34-122 ALTv (test code = 1742-6) 13 U/L 5-35 AST(SGOT) (test code = 5888653473) 17 U/L 13-40 eGFR (test code = 2176412440) mL/min/1.73m2 LYNDSAY (test code = LYNDSAY) Lab Interpretation (test cod e = 17504-3) Abnormal [facility] WITH [id number] 01:56:33* Test Item Value Reference Range Interpretation [...] g/dL 31.6-35.1 L RDW-SD (test code = 72663-0) 55.5 fL 39.0-49.9 H RDW-CV (test code = 788-0) 18.9 % 12.0-15.5 H PLT (test code = 777-3) See_Comment H [Automated messa ge] The system which generated this result transmitted reference range: 166 - 358 10*3/?L. The reference range was not used to interpret this result as normal/abnormal. MPV (test code = 69504-0) 8.2 fL 9.5-12.9 L NRBC/100 WBC (test code = 4070267021) See_Comment [Automated Rendeev[employer] ssage] The system which generated this result transmitted reference range: 0.0 - 10.0 /100 WBCs. The reference range was not used to interpret this result as normal/abnormal. NRBC x10^3 (test code = 1366742929) <0.01 See_Comment [Automated messa ge] The system which generated this result transmitted reference range: 10*3/?L. The reference range was not used to interpret this result as normal/abnormal. GRAN MAT (NEUT) % (test code = 770-8) 61.7 % IMM GRAN % (test code = 4678288995) 0.80 % LYMPH % (test code = 736-9) 28.5 % MONO % (test code = 5905-5) 6.3 % EOS % (test code = 713-8) 1.8 % BASO % (test code = 706-2) 0.9 % GRAN MAT x10^3(ANC) (test code = 9942793414) 7.31 10*3/uL 1.88-7.09 H IMM GRAN x10^3 (test code = 8448771180) 0.09 10*3/uL 0.00-0.06 H LYMPH x10^3 (test code = 731-0) 3.38 10*3/uL 1.32-3.29 H MONO x10^3 (test code = 742-7) 0.75 10*3/uL 0.33-0.92 EOS x10^3 (test code = 711-2) 0.21 10*3/uL 0.03-0.39 BASO x10^3 (test code = 704-7) 0.11 10*3/uL 0.01-0.07 H Lab Interpretation (test code = 41479-4) Abnormal [facility] WITH [id number] 01:56:33* Test Item Value Reference Range Interpretation [...] g/dL 31.6-35.1 L RDW-SD (test code = 92431-2) 55.5 fL 39.0-49.9 H RDW-CV (test code = 788-0) 18.9 % 12.0-15.5 H PLT (test code = 777-3) See_Comment H [Automated messa ge] The system which generated this result transmitted reference range: 166 - 358 10*3/?L. The reference range was not used to interpret this result as normal/abnormal. MPV (test code = 98160-6) 8.2 fL 9.5-12.9 L NRBC/100 WBC (test code = 6775043224) See_Comment [Automated me ssage] The system which generated this result transmitted reference range: 0.0 - 10.0 /100 WBCs. The reference range was not used to interpret this result as normal/abnormal. NRBC x10^3 (test code = 0838045601) <0.01 See_Comment [Automated messa ge] The system which generated this result transmitted reference range: 10*3/?L. The reference range was not used to interpret this result as normal/abnormal. GRAN MAT (NEUT) % (test code = 770-8) 61.7 % IMM GRAN % (test code = 6808744787) 0.80 % LYMPH % (test code = 736-9) 28.5 % MONO % (test code = 5905-5) 6.3 % EOS % (test code = 713-8) 1.8 % BASO % (test code = 706-2) 0.9 % GRAN MAT x10^3(ANC) (test code = 8313254170) 7.31 10*3/uL 1.88-7.09 H IMM GRAN x10^3 (test code = 8696008023) 0.09 10*3/uL 0.00-0.06 H LYMPH x10^3 (test code = 731-0) 3.38 10*3/uL 1.32-3.29 H MONO x10^3 (test code = 742-7) 0.75 10*3/uL 0.33-0.92 EOS x10^3 (test code = 711-2) 0.21 10*3/uL 0.03-0.39 BASO x10^3 (test code = 704-7) 0.11 10*3/uL 0.01-0.07 H Lab Interpretation (test code = 04161-2) Abnormal [facility] (ID NOW RAPID TESTING)2021-03-17 01:38:12* Test Item Value Reference Range Interpretation Comme nts SARS-CoV-2 Rapid ID NOW (test code = 10426-2) Not Detected Not Detected LYNDSAY (test code = LYNDSAY) ID NOW COVID-19 As say is an isothermal nucleic acid amplification test intended for the qualitative detection of nucleic acid from SARS-CoV-2 viral RNA in nasopharyngeal (HAT CLEANER) specimens. It is used under Emergency [...] clinically indicated. Lab Interpretation (test code = 32321-7) Normal [place] [address] (ID NOW RAPID TESTING)2021-03-17 01:38:12* Test Item Value Reference Range Interpretation Comme nts SARS-CoV-2 Rapid ID NOW (raisa t code = 37033-8) Not Detected Not Detected LYNDSAY (test code = LYNDSAY) Lab Interpretation (test cod e = 01651-8) Normal [place] [address] (ID NOW RAPID TESTING)2021-02-19 17:42:45* Test Item Value Reference Range Interpretation Comme nts SARS-CoV-2 Rapid ID NOW (test code = 07019-6) Not Detected Not Detected LYNDSAY (test code = LYNDSAY) ID NOW COVID-19 As say is an isothermal nucleic acid amplification test intended for the qualitative detection of nucleic acid from SARS-CoV-2 viral RNA in nasopharyngeal (HAT CLEANER) specimens. It is used under Emergency [...] clinically indicated. Lab Interpretation (test code = 35014-9) Normal [facility] ABD[facility] PELVIS W [id number] 17:24:55Thickening of the gastric antrum and duodenal [...] Electronicallysigned by James Freeman at 02/19/2021 12:24 PMH[facility] at GreenvilleUrinalysis2021-08-03 17:03:40* Test Item Value Reference Range Interpretation Comme nts APPEARANCE (test code = 0427948235) Hazy Clear A COLOR (test code = 8004636227) Mabel Yellow A PH (test code = 4524844498) 4.8-8.0 SP GRAVITY (test code = 2040680559) 1.003-1.030 H GLU U QUAL (test code = 7866223601) Normal Normal BLOOD (test code = 6432905204) Negative Negative KETONES (test code = [id number]) 5 mg/dL Negative A PROTEIN (test code = 2887-8) 30 mg/dL Negative A UROBILIN (test code = 8121850196) 4.0 mg/dL Normal A BILIRUBIN (test code = 7017823333) 4 mg/dL Negative A NITRITE (test code = 1845265787) Negative Negative LEUK GRUPO (test code = 8257530223) Negative Negative RBC/HPF (test code = 0048598516) See_Comment H [Automated messa ge] The system which generated this result transmitted reference range: 0 - 3 HPF. The reference range was not used to interpret this result as normal/abnormal. WBC/HPF (test code = 3022820206) See_Comment H [Automated messa ge] The system which generated this result transmitted reference range: 0 - 5 HPF. The reference range was not used to interpret this result as normal/abnormal. BACTERIA (test code = 2025125478) Few Negative A MUCOUS (test code = 9259614030) Moderate Negative LPF A SQ EPITH (test code = 9953114745) HPF CA OXALATE (test code = 3889373193) See_Comment H [Automated messa ge] The system which generated this result transmitted reference range: <=1 HPF. The reference range was not used to interpret this result as normal/abnormal. Ictotest (test code = 9277460140) Negative Lab Interpretation (test code = 57631-3) [facility]normal [facility] [id number] 16:34:55* Test Item Value Reference Range Interpretation Comme nts NA (test code = 3019377058) 139 mmol/L 135-145 K (test code = 4098481252) 4.3 mmol/L 3.5-5.0 CL (test code = 2546610362) 105 mmol/L 98-108 CO2 TOTAL (test code = 3271612051) 26 mmol/L 23-31 AGAP (test code = 8489229433) 2-16 BUN (test code = 7408940839) 11 mg/dL 7-23 GLUCOSE (test code = 8165242615) 95 mg/dL 70-110 CREATININE (test code = 7705678725) 0.70 mg/dL 0.50-1.04 TOTAL BILI (test code = 8430772033) 0.6 mg/dL 0.1-1.1 CALCIUM (test code = 9504768942) 8.9 mg/dL 8.6-10.6 T PROTEIN (test code = 9483370210) 7.7 g/dL 6.3-8.2 ALBUMIN (test code = 9506321065) 4.1 g/dL 3.5-5.0 ALK PHOS (test code = 5563615210) 79 U/L 34-122 ALTv (test code = 1742-6) 10 U/L 5-35 AST(SGOT) (test code = 6600670639) 22 U/L 13-40 eGFR (test code = 3980697101) mL/min/1.73m2 LYNDSAY (test code = LYNDSAY) Association [...] or urine or abnormalities in imaging tests). [facility], [id number] 16:34:14* Test Item Value Reference Range Interpretation Comme nts LIPASE (test code = 0819850048) 45 U/L 0-220 Lab Interpretation (test cod e = 12005-3) Normal [facility] with [id number] 16:21:12* Test Item Value Reference Range Interpretation [...] g/dL 31.6-35.1 L RDW-SD (test code = 53751-5) 54.4 fL 39.0-49.9 H RDW-CV (test code = 788-0) 18.3 % 12.0-15.5 H PLT (test code = 777-3) See_Comment H [Automated messa ge] The system which generated this result transmitted reference range: 166 - 358 10*3/?L. The reference range was not used to interpret this result as normal/abnormal. MPV (test code = 19085-4) 8.5 fL 9.5-12.9 L NRBC/100 WBC (test code = 8173461980) See_Comment [Automated me ssage] The system which generated this result transmitted reference range: 0.0 - 10.0 /100 WBCs. The reference range was not used to interpret this result as normal/abnormal. NRBC x10^3 (test code = 0725370506) <0.01 See_Comment [Automated messa ge] The system which generated this result transmitted reference range: 10*3/?L. The reference range was not used to interpret this result as normal/abnormal. GRAN MAT (NEUT) % (test code = 770-8) 78.3 % IMM GRAN % (test code = 6392892678) 0.40 % LYMPH % (test code = 736-9) 15.4 % MONO % (test code = 5905-5) 4.8 % EOS % (test code = 713-8) 0.1 % BASO % (test code = 706-2) 1.0 % GRAN MAT x10^3(ANC) (test code = 4871674491) 7.15 10*3/uL 1.88-7.09 H IMM GRAN x10^3 (test code = 2266672666) 0.04 10*3/uL 0.00-0.06 LYMPH x10^3 (test code = 731-0) 1.41 10*3/uL 1.32-3.29 MONO x10^3 (test code = 742-7) 0.44 10*3/uL 0.33-0.92 EOS x10^3 (test code = 711-2) <0.03 0.03-0.39 L BASO x10^3 (test code = 704-7) 0.09 10*3/uL 0.01-0.07 H Lab Interpretation (test code = 96501-0) Abnormal [facility]
--- NOTE | 2023-07-14 10:39 | RAD REPORT ---
EXAM DESCRIPTION: CT - C Spine Wo Con - 07/14/2023 10:18 am CLINICAL HISTORY: Pain COMPARISON: None. TECHNIQUE: Axial thin cut noncontrast CT images of the cervical spine were obtained with sagittal an d coronal reconstruction images generated and reviewed. All CT scans are performed using dose optimization technique as appropriate and may include automated exposure control or mA/KV adjustment according to patient size. FINDINGS: Cervical body height and alignment are normal. Sequelae of anterior plating at C4-C7 with interbody spacers. Additional plating hardware with interbody spacer at C3-4. Scattered mild degenera tive changes, predominantly along the facet articulations, with few levels of ankylosis along the lef t facet articulations along the fused segment. No fracture or acute bony abnormality. No paraspinal mass or hematoma. IMPRESSION: No acute cervical spine fracture or subluxation. Degenerative changes and sequelae of an terior fusion as above.
--- NOTE | 2023-07-14 10:43 | RAD REPORT ---
EXAM DESCRIPTION: CT - Thoracic Spine W/o Cont - 07/14/2023 10:19 am CLINICAL HISTORY: PAIN COMPARISON: C Spine Wo Con dated 06/12/2023; Neck Angio dated 08/02/2022; Neck Angio dated 12/13/2021; Head C Spine Mpr Wo Con dated 08/28/2021; Chest For Pe Angio dated 06/21/2023 TECHNIQUE: Axial noncontrast CT imaging of the thoracic spine was performed with coronal and sagitta l re-formatted images. All CT scans are performed using dose optimization technique as appropriate and may include automated exposure control or mA/KV adjustment according to patient size. FINDINGS: No acute thoracic spine fracture seen. No aggressive marrow pattern or malalignment. Paraspinal tissues are normal in thickness. No paraspinal abscess or hematoma seen. Mild endplate an d facet degenerative changes without significant foraminal stenosis. Intervertebral disc disease assessment is inherently limited by CT. Within these limitations, no high -grade canal stenosis suspected. Upper limit of normal caliber of the ascending aorta, 4 cm. Unchanged size of nodular thickening of t he left adrenal gland. Irregular left apical 11 mm nodule with superior focus of calcification, showi ng interval decrease in size of its cavitary component. Other irregular nodules on the right measurin g up to 1.4 cm in size, slightly decreased in size since the prior exam. IMPRESSION: No acute abnormality of the thoracic spine. Decreasing size of bilateral pulmonary nodules, may be of infectious or inflammatory etiology. Follow -up CT of the chest in 2-3 months is recommended to ensure appropriate resolution. Upper limit of normal caliber of the ascending aorta.
--- NOTE | 2023-07-14 11:03 | RAD REPORT ---
EXAM DESCRIPTION: CT - Spine Lumbar Wo Con - 07/14/2023 10:23 am CLINICAL HISTORY: PAIN COMPARISON: Spine Lumbar Wo Con dated 06/12/2023; Spine Lumbar Wo Con dated 03/29/2023; Spine Lumbar Wo Con dated 08/14/2022; Pelvis Wo Cont dated 07/14/2023; Thoracic Spine W/o Cont dated 07/14/2023; C Spine Wo Con dated 07/14/2023 TECHNIQUE: Axial noncontrast CT imaging of the lumbar spine was performed with coronal and sagittal re-formatted images. All CT scans are performed using dose optimization technique as appropriate and may include automated exposure control or mA/KV adjustment according to patient size. FINDINGS: No acute lumbar spine fracture seen. No aggressive marrow pattern or malalignment. Sequelae of posterior decompression opposite L4. Small ill-defined seroma along the surgical tract. Paraspinal tissues are normal in thickness. No paraspinal abscess or hematoma seen. Intervertebral disc disease assessment is inherently limited by CT. Within these limitations, soft ti ssue densities suggestive of disc bulges at L2-3 and L3-4 levels (or scarring at L3-4 level), broad b ased, and not well evaluated. No hyperattenuating canal hematoma. Advanced disc height loss noted at L4-5 and up to moderate asymmetric disc height loss noted at L3-4, more pronounced on the left. Nodular thickening of the left adrenal gland, up to 2.3 cm, stable. IMPRESSION: Postsurgical sequelae of posterior decompression opposite L4. Soft tissue densities suggestive of disc bulges or scarring at L2-3 and L3-4 levels contributing to a degree of effacement of the thecal sac. These are not well evaluated on CT. Please consider MRI follow-up for assessment of disc disease and/or stenoses if clinically indicated.
--- NOTE | 2023-07-14 11:17 | RAD REPORT ---
EXAM DESCRIPTION: CT - Pelvis Wo Cont - 07/14/2023 10:24 am CLINICAL HISTORY: PAIN COMPARISON: No comparisons TECHNIQUE: Thin cut axial CT imaging of the pelvis was performed without IV contrast. Multiplanar re formats were generated and reviewed. All CT scans are performed using dose optimization technique as appropriate and may include automated exposure control or mA/KV adjustment according to patient size. FINDINGS: No acute osseous abnormalities. No suspicious osseous lesions. Lumbar spine degenerative c hanges better evaluated on the dedicated lumbar spine CT. Mild bilateral sacroiliac joint degenerativ e changes. No dilated bowel loops or bowel wall thickening. No free air, free fluid or inflammatory stranding. N o hernia, mass or bulky lymphadenopathy. Bulky appearance of the uterus, suggestive of underlying fibroids, not well evaluated. The urinary bl adder is without significant finding. IMPRESSION: No acute osseous abnormality of the pelvis. Bulky appearance of the uterus suggestive of underlying fibroids.
--- NOTE | 2023-07-14 11:42 | ER ---
Nurse's Notes [facility] Name: Heather Coon Age: 53 yrs Sex: Female : 1970 Arrival Date: 07/14/2023 Time: 09:37 Bed 17 Private MD: Diagnosis: Lumbago with sciatica Presentation: 07/14 09:56 Chief complaint: Patient states: fall X 3 days ago, tripped an fell, landed on her back iw side , her legs, lower back are hurting, she h as no circulation in her feet and hands and knees. 09:56 Acuity: ANDER 3 iw 10:00 Coronavirus screen: At this time, the client does not indicate any symptoms associated iw with coronavirus-19. Ebola Screen: Patient negative for fever greater than or equal to 101.5 degrees Fahrenheit, and additional compatible Ebola Virus Disease symptoms Patient denies exposure to infectious person. Patient denies travel to an Ebola-affected area in the 21 days before illness onset. No symptoms or risks identified at this time. Initial Sepsis Screen: Does the patient meet any 2 criteria? No. Patient's initial sepsis screen is negative. Does the patient have a suspected source of infection? No. Patient's initial sepsis screen is negative. Risk Assessment: Do you want to hurt yourself or someone else? Patient reports no desire to harm self or others. Onset of symptoms was July 11, 2023. 10:00 Method Of Arrival: Wheelchair iw Historical: - Allergies: 09:57 fluoxetine; iw 09:57 Green Tea; iw 09:57 Keppra; not an allergy; iw - PMHx: 09:57 Anxiety; Arthritis; Bipolar disorder; Myocardial infarction; Cancer-Cervical; Chronic iw obstructive lung disease; Chronic pain; Congestive heart failure; Depression; Diverticulitis; Herniated Back Disc; Hypertension; intestinal mass; pt reports hx of seizures; Spastic Muscles; stroke; - Immunization history:: Adult Immunizations unknown. - Social history:: Smoking status: Patient reports the use of cigarette tobacco products, smokes one-half pack cigarettes per day. Screenin:42 [facility] ED Fall Risk Assessment (Adult) History of falling in the last 3 months, ph including since admission Yes- single mechanical fall (1 pt). Abuse screen: Denies threats or abuse. Denies injuries from another. Nutritional screening: No deficits noted. Tuberculosis screening: No symptoms or risk factors identified. Assessment: 10:30 General: Appears in no apparent distress. uncomfortable, Behavior is calm, cooperative, ph appropriate for age. Pain: Complains of pain in lumbar area Pain radiates to right leg and left leg. Neuro: Level of Consciousness is awake, alert, obeys commands, Oriented to person, place, time, situation. Cardiovascular: Capillary refill < 3 seconds in bilateral fingers Patient's skin is warm and dry. Respiratory: Airway is patent Respiratory effort is even, unlabored, Respiratory pattern is regular, symmetrical. Derm: Skin is pink, warm \T\ dry. Musculoskeletal: Circulation, motion, and sensation intact. Range of motion: intact in all extremities. Vital Signs: 10:00 BP 178 / 112; Pulse 107; Resp 19; Pulse Ox 100% on R/A; Weight 83.91 kg; Height 5 ft. 3 iw in. ; Pain 8/10; 11:10 BP 169 / 92; Pulse 91; Resp 18; Pulse Ox 98% on R/A; ph 12:18 BP 172 / 89; Pulse 93; Resp 18; Pulse Ox 99% on R/A; me1 10:00 Body Mass Index 32.77 (83.91 kg, 160.02 cm) iw 10:00 Pain Scale: Adult iw ED Course: 09:40 Patient arrived in ED. mr 09:41 Andrea Pizano MD is Attending Physician. ec2 09:57 Triage completed. iw 10:00 Arm band placed on. iw 10:19 CT C Spine In Process Unspecified. EDMS 10:20 CT Thoracic Spine Wo Cont In Process Unspecified. EDMS 10:20 CT Lumbar Spine Wo Con In Process Unspecified. EDMS 10:21 CT Pelvis wo Cont In Process Unspecified. EDMS 10:42 Evonne Lord, RN is Primary Nurse. ph 10:42 Patient has correct armband on for positive identification. Bed in low position. Call ph light in reach. Side rails up X 1. Pulse ox on. NIBP on. Door closed. Noise minimized. Warm blanket given. 11:13 No provider procedures requiring assistance completed. ph 12:19 Provided Education on: POC. Verbalized understanding.. me1 12:19 Patient did not have IV access during this emergency room visit. me1 Administered Medications: 11:10 Drug: Lidoderm Topical Patch 5 % (700 mg/patch) 1 patches Topical once; leave on for 12 ph hours; cover most painful area; may cut into smaller pieces {Note: lower back, upper back.} Route: Topical; Site: affected area; 11:10 Drug: Ketorolac IM 60 mg IM once Route: IM; Site: right deltoid; ph 12:18 Follow up: Response: No adverse reaction; Pain is decreased me1 Medication: 11:11 VIS not applicable for this client. ph Outcome: 11:41 Discharge ordered by . ec2 12:19 Discharged to home ambulatory, with family, me1 12:19 Condition: stable 12:19 Discharge instructions given to patient, family, Instructed on discharge instructions, follow up and referral plans. Demonstrated understanding of instructions, follow-up care, 12:19 Patient left the ED. me1 Signatures: Dispatcher [employer] EDDC Shy Funk, Reg Reg mr Lorena Vargas RN RN Evonne Lord RN RN Frieda Boyd RN RN me1 Andrea Pizano MD MD ec2 Corrections: (The following items were deleted from the chart) 09:57 09:56 Chief complaint: Patient states: fall X 3 days ago iw iw 10:01 09:56 Chief complaint: Patient states: fall X 3 days ago, tripped an fell, landed on iw her back side iw
--- NOTE | 2023-07-14 11:42 | EDPHYS ---
Physician Documentation [facility] Name: Heather Coon Age: 53 yrs Sex: Female : 1970 Arrival Date: 07/14/2023 Time: 09:37 Bed 17 Private MD: ED Physician Andrea Pizano HPI: 07/14 10:01 This 53 yrs old Female presents to ER via Unassigned with complaints of Fall Injury. ec2 10:01 Patient arrives today for evaluation of diffuse back pain. States that she fell 3 days ec2 ago, states that she is having pain. States that she has a previous history of instrumentation to the lower spine. Patient reports no red flag symptoms. Has been ambulatory. States that she has taken Tylenol and ibuprofen. Patient left yesterday after being triaged for the same complaint.. Historical: - Allergies: 09:57 fluoxetine; iw 09:57 Green Tea; iw 09:57 Keppra; not an allergy; iw - PMHx: 09:57 Anxiety; Arthritis; Bipolar disorder; Myocardial infarction; Cancer-Cervical; Chronic iw obstructive lung disease; Chronic pain; Congestive heart failure; Depression; Diverticulitis; Herniated Back Disc; Hypertension; intestinal mass; pt reports hx of seizures; Spastic Muscles; stroke; - Immunization history:: Adult Immunizations unknown. - Social history:: Smoking status: Patient reports the use of cigarette tobacco products, smokes one-half pack cigarettes per day. ROS: 10:01 Constitutional: as per hpi ec2 Exam: 10:01 Constitutional: GEN: NAD Head: atraumatic Eyes: EOMI Ears: External ears are ec2 normal. CV: tachycardia LUNGS: no respiratory distress ABD: non-distended SKIN: no evidence of rashes MSK: no evidence of trauma, diffuse C/T/L-spine TTP, bilateral lower extremities with good range of motion, bilateral upper extremities with good range of motion. NEURO: moves all extremities equally, strength intact in the bilateral upper and lower extremities. Vital Signs: 10:00 BP 178 / 112; Pulse 107; Resp 19; Pulse Ox 100% on R/A; Weight 83.91 kg; Height 5 ft. 3 iw in. ; Pain 8/10; 11:10 BP 169 / 92; Pulse 91; Resp 18; Pulse Ox 98% on R/A; ph 12:18 BP 172 / 89; Pulse 93; Resp 18; Pulse Ox 99% on R/A; me1 10:00 Body Mass Index 32.77 (83.91 kg, 160.02 cm) iw 10:00 Pain Scale: Adult iw MDM: 10:01 Data reviewed: vital signs. ED course: Patient arrives today for evaluation of low back ec2 pain. Examination remarkable for well-appearing nontoxic individual is otherwise slightly tachycardic with diffuse TTP to the back, will obtain CT imaging of the C/T/L-spine as well as pelvis, and will reassess the patient. Currently considering process such as chronic musculoskeletal back pain, bony fractures, low suspicion for spinal cord pathology.. 10:04 Patient medically screened. ec2 11:41 ED course: CT of the C/T/L-spine show disc herniation at L2 and L3, patient is aware of ec2 these previous issues, no evidence of fractures or malalignments, patient clinically does not fit with spinal cord pathology and I will order for MR imaging at this time. I will discharge home and have her follow-up with her neurosurgeon for her chronic back pains. Return precautions given. . 07/14 10:01 Order name: CT C Spine; Complete Time: 11:24 ec2 07/14 10:01 Order name: CT Thoracic Spine Wo Cont; Complete Time: 11:24 ec2 07/14 10:01 Order name: CT Lumbar Spine Wo Con; Complete Time: 11:24 ec2 07/14 10:01 Order name: CT Pelvis wo Cont; Complete Time: 11:24 ec2 Administered Medications: 11:10 Drug: Lidoderm Topical Patch 5 % (700 mg/patch) 1 patches Topical once; leave on for 12 ph hours; cover most painful area; may cut into smaller pieces {Note: lower back, upper back.} Route: Topical; Site: affected area; 11:10 Drug: Ketorolac IM 60 mg IM once Route: IM; Site: right deltoid; ph 12:18 Follow up: Response: No adverse reaction; Pain is decreased me1 Disposition Summary: 07/14/23 11:41 Discharge Ordered Condition: Stable ec2 Diagnosis - Lumbago with sciatica ec2 Followup: ec2 - With: Private Physician - When: - Reason: Recheck today's complaints Discharge Instructions: - Discharge Summary Sheet ec2 - Sciatica, [id number] ec2 Forms: - Medication Reconciliation Form ec2 - Thank You Letter ec2 - Antibiotic Education ec2 - Prescription Opioid Use ec2 - Patient Portal Instructions ec2 - Leadership Thank You Letter ec2 Signatures: Dispatcher [employer] Lorena Guardado, BETH CAMPOS Evonne Lord RN RN ph Corral, Edwin, MD MD ec2 Frieda Boyd RN me1
[2023-07-14 12:39] VITALS: BP 172/89; O2SAT 99
== END ==
LOC: ER 09:37
DX: M54.40 Lumbago with sciatica, unspecified side (principal); Z88.8 Allergy status to other drugs, medicaments and biological substances; Z91.018 Allergy to other foods
CPT/HCPCS: 72125; 72128; 72131; 72192; 96372; 99284

== ENCOUNTER → 2023-07-27 | Emergency (ER) | payer OTHER, SELFPAY ==
[~2023-07-27] MED LIST changes: +ALBUTEROL 2.5 MG/3 ML NEB SOL ONE; +DIVALPROEX DR 250 MG TAB PO ONE; +IPRATROPIUM BROM 0.5MG/2.5ML ONE; -KETOROLAC 30 MG/ML INJ ONE; -LIDOCAINE 4% PATCH ONE; +MORPHINE 4 MG/ML SYR ONE; +ONDANSETRON 4 MG/2 ML VIAL ONE
--- OUTSIDE RECORDS SUMMARY | 2023-07-27 13:46 | XMS REPORT | Continuity of Care Document ---
Author Name Unknown Address [address] [facility] [address] [place] [address] [facility] thconnect Address [address] [facility] [address] [place] [address] Care Team Providers Care Shuttle Driver Name Role Phone Myacaro Aneta SUAREZ Primary Care Physician AYDEE GO Attending Clinician Unavailable CARA BURGESS Attending Clinician Unavailab ADAM Cabrera Attending Clinician Unavailable THOMAS LOZOYA Attending Clinician Nina MARIAH Quiroga Attending Clinician Unavailable Cara Burgess MD Attending Clinician [phone] Aydee Go MD Attending Clinician [phone] System, Provider Not In Attending Clinician Unav paulable Dallas Gomez Attending Clinician UnavailAdam Vasques MD Attending Clinician [phone] Harry Newsome MD Attending Clinician Rocael ELIZONDO, Antwon Mccrary Attending Clinician [phone] Yue Bui MD Attending Clinician [phone] Tamica ELIZONDO, Connie Antonio Attending Clinician [phone] Jasen ELIZONDO, Mariah Attending Clinician [phone] Valerio ELIZONDO, Thomas Hopkins Attending Clinician CONNIE DAVEY Attending Clinician UnavailAlfonso Oh Attending Clinician Unavailable Alfonso Lopez Attending Clinician [phone] RITCHIE WARREN Attending Clinician Unavailable Braina ELIZONDO, Ritchie Stoner Attending Clinician [phone] Rk CAMPOS, Shy Stoner Attending Clinician [phone] PARRISH WHEATLEY Attending Clinician Unavaila yaya Mendoza MD, Halima Hummel Attending Clinician [phone] Jen Geller MD Attending Clinician [phone] Roxi ELIZONDO, Parrish Reyez Attending Clinici an LORENZA LOWRY Attending Clinician Unavailable Sav Rondon MD Attending Clinician [phone] Lorenza Lowry MD Attending Clinician [phone] Maria Teresa Nicole LVN Attending Clinician [phone] CHANTEL BOJORQUEZ Attending Clinician CHANTEL Kelly Attending Clinician Jack Ibrahim MD, Brandyn Otoole Attending Clinician [phone] SELINA MARTINES Attending Clinician Unavailable Sapna Vargas DO Attending Clinician [phone] Tyrel ELIZONDO, Glory Katz Attending Clinician + Selina Martines MD Attending Clinician [phone] Chung Graham Attending Clinician David Pak MD, Jose Attending Clinician [phone] JOSE PAK Attending Clinician Unavailable NICHELLE VIRK Attending Clinician Unavaila Nichelle Lakhani Attending Clinician [phone] Doctor Unassigned, [place] Attending Clinician U chelsi Nava RN, Miky Attending Clinician Unavailab monroe SUAREZ, Blackberyl Attending Clinician [phone] Deo FREIGHT SOLICITOR, Lydia Attending Clinician [phone] Unknown, Attending Attending Clinician Unavailab le UNKNOWN, ATTENDING Attending Clinician Unavailab Anali Berg Attending Clinician [phone] Yehuda Arcos MD Attending Clinician [phone] CARA BURGESS Admitting Clinician Unavailab ADAM Cabrera Admitting Clinician Unavailable MARIAH ALDRIDGE Admitting Clinician Unavailable CONNIE DAVEY Admitting Clinician UnavailAlfonso Oh Admitting Clinician Unavailable RITCHIE WARREN Admitting Clinician Unavailable JEN GELLER Admitting Clinician Unavaila LORENZA Mariscal Admitting Clinician Unavailable Lorenza Lowry MD Admitting Clinician [phone] BRANDYN IBRAHIM Admitting Clinician Unavailable Brandyn Ibrahim MD Admitting Clinician [phone] GLORY ESTEVES Admitting Clinician UnaNICHELLE Archuleta Admitting Clinician Unavaila yaya Payers Payer Name Policy Type Policy Number Effective Date Expirati on Date Source ANTONIATerry [id number] 2023 00:00:00 MEDICAID PENDING PENDING 2022 00:00:00 Problems Condition Name Condition Details Condition Category Status Onset Date Resolution Date Last Treatment Date Treating Clinician Comments Source Bilateral leg weakness Bilateral leg weakness Disease Active 2022-07 00:00: 00 [facility] Pneumonia Pneumonia Disease Active 2022-07 00:00: 00 [facility] Cavitary lesion of lung Cavitary lesion of lung Disease Active 2022-07 00:00: 00 [facility] Cervical myelopathy Cervical myelopathy Disease Recurre nce 2022-07 00:00: 00 [facility] Cervical disc disorder Cervical disc disorder Disease Active 2023-1 1-09 00:00: 00 [facility] Cord compressio n Cord compressio n Disease Recurre nce 0 9-11 00:00: 00 [facility] Cauda equina compressio n Cauda equina compressio n Disease Recurre nce 0 9-11 00:00: 00 [facility] Seizure Seizure Disease Recurre nce 1-14 00:00: 00 [facility] Cardiomyop athy Cardiomyop athy Disease Active 08-01 00:00: 00 [facility] NSVT (nonsustai keisha ventricula r tachycardi a) NSVT (nonsustai keisha ventricula r tachycardi a) Disease Active 08-01 00:00: 00 [facility] Chest pain, unspecifie d type Chest pain, unspecifie d type Disease Active 07-31 00:00: 00 [facility] Elevated brain natriureti c peptide (BNP) level Elevated brain natriureti c peptide (BNP) level Disease Active 07-31 00:00: 00 [facility] Coronary artery disease involving [place] coronary artery of [place] heart without angina pectoris Coronary artery disease involving [place] coronary artery of [place] heart without angina pectoris Disease Active 07-31 00:00: 00 [facility] Snores Snores Disease Active 07-31 00:00: 00 [facility] Cigarette smoker Cigarette smoker Disease Active 07-31 00:00: 00 [facility] Primary hypertensi on Primary hypertensi on Disease Active 07-31 00:00: 00 [facility] Other hyperlipid emia Other hyperlipid emia Disease Active 07-31 00:00: 00 [facility] Coronary artery disease involving [place] coronary artery of [place] heart without angina pectoris Coronary artery disease involving [place] coronary artery of [place] heart without angina pectoris Disease Active 07-31 00:00: 00 [facility] Chronic bilateral low back pain with bilateral sciatica Chronic bilateral low back pain with bilateral sciatica Disease Active 2021-07 0-17 00:00: 00 [facility] 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 Disease Active 04-15 00:00: 00 [facility] Neuroforam inal stenosis of cervical spine Neuroforam inal stenosis of cervical spine Disease Active 04-15 00:00: 00 [facility] Stroke-lik e symptoms Stroke-lik e symptoms Disease Active 04-13 00:00: 00 [facility] Bipolar disorder, in partial remission, most recent episode manic Bipolar disorder, in partial remission, most recent episode manic Disease Active 09-27 00:00: 00 [facility] Neuroforam inal stenosis of lumbar spine Neuroforam inal stenosis of lumbar spine Disease Active 09-27 00:00: 00 [facility] Bilateral acute otitis media, recurrence not specified, unspecifie d otitis media type Bilateral acute otitis media, recurrence not specified, unspecifie d otitis media type Disease Active 09-27 00:00: 00 [facility] Lumbar spinal stenosis Lumbar spinal stenosis Disease Active 09-27 00:00: 00 [facility] Right-side d low back pain with sciatica, sciatica laterality unspecifie d Right-side d low back pain with sciatica, sciatica laterality unspecifie d Disease Active 09-27 00:00: 00 [facility] Generalize d anxiety disorder Generalize d anxiety disorder Disease Active 09-27 00:00: 00 [facility] Agoraphobi a Agoraphobi a Disease Active 09-27 00:00: 00 [facility] Bipolar disorder, in partial remission, most recent episode manic Bipolar disorder, in partial remission, most recent episode manic Disease Active 09-27 00:00: 00 [facility] Obsessive compulsive disorder Obsessive compulsive disorder Disease Active 09-27 00:00: 00 [facility] Breast mass, left Breast mass, left Disease Active 09-17 00:00: 00 [facility] Anxiety Anxiety Disease Active 09-17 00:00: 00 [facility] Lower back pain Lower back pain Disease Active 09-17 00:00: 00 [facility] High blood pressure High blood pressure Disease Active 09-17 00:00: 00 [facility] COPD (chronic obstructiv e pulmonary disease) COPD (chronic obstructiv e pulmonary disease) Disease Active 09-17 00:00: 00 [facility] Obesity Obesity Disease Active 09-17 00:00: 00 [facility] Allergies, Adverse Reactions, Alerts Allergy Name Allergy Type Status Severity Reaction(s) Onset Date Inactive Date Treating Clinician Comments Source FLUOXETI NE Allergy Active 03-29 00:00: 00 [facility] GREEN TEA Allergy Active High Other 03-29 00:00: 00 [facility] LEVETIRA CETAM Allergy Active High N\\T\\V 03-29 00:00: 00 [facility] Fluoxeti ne Propensi ty to adverse reaction s Active 03-29 00:00: 00 [facility] Green Tea Propensi ty to adverse reaction s Active 03-29 00:00: 00 Seizure like activity [facility] Levetira cetam Propensi ty to adverse reaction s Active Nausea And Vomiting 03-29 00:00: 00 Intensifi es seizure [facility] Green Tea Drug Allergy Active Other (See Comments) 03-29 00:00: 00 Seizure like activity [facility] Levetira cetam Drug Allergy Active Nausea And Vomiting 03-29 00:00: 00 Intensifi es seizure [facility] LEVETIRA CETAM DRUG INGREDI Active Other-Cmnt - 00:00: 00 [facility] Levetira cetam Propensi ty to adverse reaction s Active Other - See comments - 00:00: 00 Makes seizures worse [facility] FLUOXETI NE Allergy Active Med Rash 08-02 00:00: 00 [facility] Green Tea Propensi ty to adverse reaction s Active 14 00:00: 00 [facility] Fluoxeti ne Propensi ty to adverse reaction s Active Rash 08-02 00:00: 00 [facility] GREEN TEA Allergy Active 08-02 00:00: 00 [facility] Fluoxeti ne Propensi ty to adverse reaction s Active Unknown - See comments 03-25 00:00: 00 [facility] FLUOXETI NE DRUG INGREDI Active Unknown-Cmnt 03-25 00:00: 00 [facility] DICLOFEN AC DRUG INGREDI Active HYPERTENSION 11-20 00:00: 00 [facility] Diclofen ac Propensi ty to adverse reaction s Active Hypertension 11-20 00:00: 00 [facility] GREEN TEA DRUG INGREDI Active Med Other-Cmnt 08-10 00:00: 00 [facility] Green Tea Propensi ty to adverse reaction s to drug Active Other - See comments 08-10 00:00: 00 Seizures [facility] FLUOXETI NE HCL DRUG INGREDI Active Hives 03-19 00:00: 00 [facility] Fluoxeti ne Hcl Propensi ty to adverse reaction s Active Hives 03-19 00:00: 00 [facility] Family History Family Member Diagnosis Comments Start Date Stop Date Sourc e Natural mother Alcohol abuse [facility] Natural mother Cancer [facility] Natural mother Diabetes [facility] Natural mother Heart disease [facility] Natural mother Hyperlipidemia [facility] Natural mother Kidney disease [facility] Natural mother Stroke [facility] Natural mother Alcohol abuse [facility] Natural mother Stroke [facility] Paternal uncle Diabetes [facility] Social History Social Habit Start Date Stop Date Quantity Comments Source History SDOH Social Connections Get Together [facility] History SDOH Social Connections [facility] History SDOH Social Connections Membership [facility] History SDOH Social Connections Meetings [facility] History SDOH Alcohol Frequency [facility] History SDOH Alcohol Std Drinks [facility] History SDOH Alcohol Binge [facility] History SDOH Housing Homeless Last Year [facility] Sexual orientation C [facility] Alcohol intake 2023-06-02 00:00:00 2023-06-02 00:00:00 .57 /d [facility] Exposure to SARS-CoV-2 (event) 2023-05-18 00:00:00 2023-05-28 07:28:00 Not sure [facility] Cigarettes smoked current (pack per day) - Reported 2023-05-26 00:00:00 2023-05-26 00:00:00 [facility] Tobacco use and exposure 2023-05-26 00:00:00 2023-05-26 00:00:00 Smokeless tobacco non-user [facility] Cigarette pack-years 2023-05-26 00:00:00 2023-05-26 00:00:00 [facility] History SDOH Housing Unable to Pay - In the last 12 months, was there a time when you were not able to pay the mortgage or rent on time? 2023-05-26 00:00:00 2023-05-26 00:00:00 Yes [facility] History of Social function 2023-05-26 00:00:00 2023-05-26 00:00:00 [facility] History of tobacco use 1987-05-22 00:00:00 2023-05-22 00:00:00 Cigarette Smoker [facility] History SDOH Housing Places Lived 2023-03-30 00:00:00 2023-03-30 00:00:00 1 [facility] Alcohol Comment 2023-03-29 00:00:00 2023-03-29 00:00:00 2x a week [facility] History SDOH Social Connections Phone 2022-08-01 00:00:00 2022-08-01 00:00:00 5 [facility] History SDOH Social Connections Living 2022-08-01 00:00:00 2022-08-01 00:00:00 5 [facility] History SDOH Physical Activity DPW 2022-08-01 00:00:00 2022-08-01 00:00:00 0 [facility] History SDOH Physical Activity MPS 2022-08-01 00:00:00 2022-08-01 00:00:00 0 [facility] History SDOH Financial 2022-08-01 00:00:00 2022-08-01 00:00:00 3 [facility] History SDOH Food Worry 2022-08-01 00:00:00 2022-08-01 00:00:00 1 [facility] History SDOH Food Scarcity 2022-08-01 00:00:00 2022-08-01 00:00:00 1 [facility] History SDOH Transport Med 2022-08-01 00:00:00 2022-08-01 00:00:00 2 [facility] History SDOH Transport Non-Med 2022-08-01 00:00:00 2022-08-01 00:00:00 2 [facility] Education 2022-07-31 00:00:00 2022-07-31 00:00:00 14 [facility] Sex Assigned At 1970 00:00:00 1970 00:00:00 [facility] Smoking Status Start Date Stop Date Source Ex-smoker 2023-05-26 00:00:00 2023-05-26 00:00:00 [facility] Smokes tobacco daily 2023-03-29 00:00:00 [facility] Medications Ordered Medication Name Filled Medication Name Start Date Stop Date Current Medication? Ordering Clinician Indication Dosage Frequency Signature (SIG) Comments Components Source tamsulosin (FLOMAX) 0.4 mg Cap 24 hr capsule 2022-07 00:00: 00 06-22 23:59 :00 No .4mg QD Take 1 capsule (0.4 mg total) by mouth daily for 5 days. [facility] tamsulosin (FLOMAX) 0.4 mg Cap 24 hr capsule 2022-07 00:00: 06-22 23:59 :00 No .4mg QD Take 1 capsule (0.4 mg total) by mouth daily for 5 days. [facility] tamsulosin (FLOMAX) 0.4 mg Cap 24 hr capsule 2022-07 00:00: 00 06-22 23:59 :00 No .4mg QD Take 1 capsule (0.4 mg total) by mouth daily for 5 days. [facility] tamsulosin (FLOMAX) 0.4 mg Cap 24 hr capsule 2022-07 00:00: 00 06-22 23:59 :00 No .4mg QD Take 1 capsule (0.4 mg total) by mouth daily for 5 days. [facility] tamsulosin (FLOMAX) 0.4 mg Cap 24 hr capsule 2022-07 00:00: 00 06-22 23:59 :00 Yes .4mg QD Take 1 capsule (0.4 mg total) by mouth daily for 5 days. [facility] tamsulosin (FLOMAX) 0.4 mg Cap 24 hr capsule 2022-07 00:00: 00 06-22 23:59 :00 Yes .4mg QD Take 1 capsule (0.4 mg total) by mouth daily for 5 days. [facility] metoprolol succinate (TOPROL-XL) 25 MG 24 hr tablet 2022-07 19:45: 32 Yes 25mg QD Take 1 tablet (25 mg total) by mouth daily. [facility] varenicline (CHANTIX) 1 mg tablet 2022-07 19:45: 32 Yes 1mg Q.5D Take 1 tablet (1 mg total) by mouth 2 (two) times daily Give with meals and with a full glass of water.. [facility] albuterol HFA (VENTOLIN HFA) 90 mcg/actuati on inhaler 2022-07 19:45: 32 Yes 1{puff} Inhale 1 puff by mouth via inhaler every 6 (six) hours as needed for Wheezing. [facility] fluticasone -umeclidin- vilanter (Trelegy Ellipta) 200-62.5-25 mcg DsDv 2022-07 19:45: 32 Yes QD Inhale by mouth via inhaler daily. [facility] atorvastati n (LIPITOR) 20 MG tablet 2022-07 19:45: 32 Yes 20mg QD Take 1 tablet (20 mg total) by mouth daily. [facility] metoprolol succinate (TOPROL-XL) 25 MG 24 hr tablet 2022-07 19:45: 32 Yes 25mg QD Take 1 tablet (25 mg total) by mouth daily. [facility] varenicline (CHANTIX) 1 mg tablet 2022-07 19:45: 32 Yes 1mg Q.5D Take 1 tablet (1 mg total) by mouth 2 (two) times daily Give with meals and with a full glass of water.. [facility] albuterol HFA (VENTOLIN HFA) 90 mcg/actuati on inhaler 2022-07 19:45: 32 Yes 1{puff} Inhale 1 puff by mouth via inhaler every 6 (six) hours as needed for Wheezing. [facility] fluticasone -umeclidin- vilanter (Trelegy Ellipta) 200-62.5-25 mcg DsDv 2022-07 19:45: 32 Yes QD Inhale by mouth via inhaler daily. [facility] atorvastati n (LIPITOR) 20 MG tablet 2022-07 19:45: 32 Yes 20mg QD Take 1 tablet (20 mg total) by mouth daily. [facility] metoprolol succinate (TOPROL-XL) 25 MG 24 hr tablet 2022-07 19:45: 32 Yes 25mg QD Take 1 tablet (25 mg total) by mouth daily. [facility] varenicline (CHANTIX) 1 mg tablet 2022-07 19:45: 32 Yes 1mg Q.5D Take 1 tablet (1 mg total) by mouth 2 (two) times daily Give with meals and with a full glass of water.. [facility] albuterol HFA (VENTOLIN HFA) 90 mcg/actuati on inhaler 2022-07 19:45: 32 Yes 1{puff} Inhale 1 puff by mouth via inhaler every 6 (six) hours as needed for Wheezing. [facility] fluticasone -umeclidin- vilanter (Trelegy Ellipta) 200-62.5-25 mcg DsDv 2022-07 19:45: 32 Yes QD Inhale by mouth via inhaler daily. [facility] atorvastati n (LIPITOR) 20 MG tablet 2022-07 19:45: 32 Yes 20mg QD Take 1 tablet (20 mg total) by mouth daily. [facility] metoprolol succinate (TOPROL-XL) 25 MG 24 hr tablet 2022-07 19:45: 32 Yes 25mg QD Take 1 tablet (25 mg total) by mouth daily. [facility] varenicline (CHANTIX) 1 mg tablet 2022-07 19:45: 32 Yes 1mg Q.5D Take 1 tablet (1 mg total) by mouth 2 (two) times daily Give with meals and with a full glass of water.. [facility] albuterol HFA (VENTOLIN HFA) 90 mcg/actuati on inhaler 2022-07 19:45: 32 Yes 1{puff} Inhale 1 puff by mouth via inhaler every 6 (six) hours as needed for Wheezing. [facility] fluticasone -umeclidin- vilanter (Trelegy Ellipta) 200-62.5-25 mcg DsDv 2022-07 19:45: 32 Yes QD Inhale by mouth via inhaler daily. [facility] atorvastati n (LIPITOR) 20 MG tablet 2022-07 19:45: 32 Yes 20mg QD Take 1 tablet (20 mg total) by mouth daily. [facility] metoprolol succinate (TOPROL-XL) 25 MG 24 hr tablet 2022-07 19:45: 32 Yes 25mg QD Take 1 tablet (25 mg total) by mouth daily. [facility] varenicline (CHANTIX) 1 mg tablet 2022-07 19:45: 32 Yes 1mg Q.5D Take 1 tablet (1 mg total) by mouth 2 (two) times daily Give with meals and with a full glass of water.. [facility] albuterol HFA (VENTOLIN HFA) 90 mcg/actuati on inhaler 2022-07 19:45: 32 Yes 1{puff} Inhale 1 puff by mouth via inhaler every 6 (six) hours as needed for Wheezing. [facility] fluticasone -umeclidin- vilanter (Trelegy Ellipta) 200-62.5-25 mcg DsDv 2022-07 19:45: 32 Yes QD Inhale by mouth via inhaler daily. [facility] atorvastati n (LIPITOR) 20 MG tablet 2022-07 19:45: 32 Yes 20mg QD Take 1 tablet (20 mg total) by mouth daily. [facility] metoprolol succinate (TOPROL-XL) 25 MG 24 hr tablet 2022-07 19:45: 32 Yes 25mg QD Take 1 tablet (25 mg total) by mouth daily. [facility] varenicline (CHANTIX) 1 mg tablet 2022-07 19:45: 32 Yes 1mg Q.5D Take 1 tablet (1 mg total) by mouth 2 (two) times daily Give with meals and with a full glass of water.. [facility] albuterol HFA (VENTOLIN HFA) 90 mcg/actuati on inhaler 2022-07 19:45: 32 Yes 1{puff} Inhale 1 puff by mouth via inhaler every 6 (six) hours as needed for Wheezing. [facility] fluticasone -umeclidin- vilanter (Trelegy Ellipta) 200-62.5-25 mcg DsDv 2022-07 19:45: 32 Yes QD Inhale by mouth via inhaler daily. [facility] atorvastati n (LIPITOR) 20 MG tablet 2022-07 19:45: 32 Yes 20mg QD Take 1 tablet (20 mg total) by mouth daily. [facility] acetaminoph en-codeine (TYLENOL #3) 300-30 mg per tablet 2022-07 18:02: 00 06-16 00:00 :00 No 1{tbl} Take 1 tablet by mouth every 4 (four) hours as needed for Pain. [facility] acetaminoph en-codeine (TYLENOL #3) 300-30 mg per tablet 2022-07 18:02: 00 06-16 00:00 :00 No 1{tbl} Take 1 tablet by mouth every 4 (four) hours as needed for Pain. [facility] acetaminoph en-codeine (TYLENOL #3) 300-30 mg per tablet 2022-07 18:02: 00 06-16 00:00 :00 No 1{tbl} Take 1 tablet by mouth every 4 (four) hours as needed for Pain. [facility] acetaminoph en-codeine (TYLENOL #3) 300-30 mg per tablet 2022-07 18:02: 06-16 00:00 :00 No 1{tbl} Take 1 tablet by mouth every 4 (four) hours as needed for Pain. [facility] acetaminoph en-codeine (TYLENOL #3) 300-30 mg per tablet 2022-07 18:02: 00 06-16 00:00 :00 No 1{tbl} Take 1 tablet by mouth every 4 (four) hours as needed for Pain. [facility] acetaminoph en-codeine (TYLENOL #3) 300-30 mg per tablet 2022-07 18:02: 00 06-16 00:00 :00 No 1{tbl} Take 1 tablet by mouth every 4 (four) hours as needed for Pain. [facility] DULoxetine (CYMBALTA) 30 MG capsule 2022-07 00:00: 00 09-14 23:59 :00 Yes 30mg QD Take 1 capsule (30 mg total) by mouth daily for 90 days. [facility] DULoxetine (CYMBALTA) 30 MG capsule 2022-07 00:00: 00 09-14 23:59 :00 Yes 30mg QD Take 1 capsule (30 mg total) by mouth daily for 90 days. [facility] DULoxetine (CYMBALTA) 30 MG capsule 2022-07 00:00: 00 09-14 23:59 :00 Yes 30mg QD Take 1 capsule (30 mg total) by mouth daily for 90 days. [facility] DULoxetine (CYMBALTA) 30 MG capsule 2022-07 00:00: 00 09-14 23:59 :00 Yes 30mg QD Take 1 capsule (30 mg total) by mouth daily for 90 days. [facility] DULoxetine (CYMBALTA) 30 MG capsule 2022-07 00:00: 00 09-14 23:59 :00 Yes 30mg QD Take 1 capsule (30 mg total) by mouth daily for 90 days. [facility] [place]CYMBALTA) 30 MG capsule 2022-07 00:00: 00 09-14 23:59 :00 Yes 30mg QD Take 1 capsule (30 mg total) by mouth daily for 90 days. [facility] metroNIDAZO LE (FLAGYL) 500 MG tablet 2022-07 00:00: 00 07-04 23:59 :00 No 500mg Take 1 tablet (500 mg total) by mouth every 8 (eight) hours for 18 days. [facility] ciprofloxac in HCl (CIPRO) 500 MG tablet 2022-07 00:00: 00 07-04 23:59 :00 No 500mg Q.5D Take 1 tablet (500 mg total) by mouth 2 (two) times daily for 18 days. [facility] metroNID[place] (FLAGYL) 500 MG tablet 2022-07 00:00: 00 07-04 23:59 :00 No 500mg Take 1 tablet (500 mg total) by mouth every 8 (eight) hours for 18 days. [facility] ciprofloxac in HCl (CIPRO) 500 MG tablet 2022-07 00:00: 00 07-04 23:59 :00 No 500mg Q.5D Take 1 tablet (500 mg total) by mouth 2 (two) times daily for 18 days. [facility] metroNID[place] LE (FLAGYL) 500 MG tablet 2022-07 00:00: 00 07-04 23:59 :00 No 500mg Take 1 tablet (500 mg total) by mouth every 8 (eight) hours for 18 days. [facility] ciprofloxac in HCl (CIPRO) 500 MG tablet 2022-07 00:00: 00 07-04 23:59 :00 No 500mg Q.5D Take 1 tablet (500 mg total) by mouth 2 (two) times daily for 18 days. [facility] [place] metroNID[place]O LE (FLAGYL) 500 MG tablet 2022-07 00:00: 00 07-04 23:59 :00 No 500mg Take 1 tablet (500 mg total) by mouth every 8 (eight) hours for 18 days. [facility] ciprofloxac in HCl (CIPRO) 500 MG tablet 2022-07 00:00: 00 07-04 23:59 :00 No 500mg Q.5D Take 1 tablet (500 mg total) by mouth 2 (two) times daily for 18 days. [facility] metroNID[place] (FLAGYL) 500 MG tablet 2022-07 00:00: 00 07-04 23:59 :00 Yes 500mg Take 1 tablet (500 mg total) by mouth every 8 (eight) hours for 18 days. [facility] [place] ciprofloxac in HCl (CIPRO) 500 MG tablet 2022-07 00:00: 00 07-04 23:59 :00 Yes 500mg Q.5D Take 1 tablet (500 mg total) by mouth 2 (two) times daily for 18 days. [facility] metroNID[place] LE (FLAGYL) 500 MG tablet 2022-07 00:00: 00 07-04 23:59 :00 Yes 500mg Take 1 tablet (500 mg total) by mouth every 8 (eight) hours for 18 days. [facility] ciprofloxac in HCl (CIPRO) 500 MG tablet 2022-07 00:00: 00 07-04 23:59 :00 Yes 500mg Q.5D Take 1 tablet (500 mg total) by mouth 2 (two) times daily for 18 days. [facility] cyclobenzap rine (FLEXERIL) 10 MG tablet 2022-07 00:00: 00 06-26 23:59 :00 No 10mg Q.[id number] 3D Take 1 tablet (10 mg total) by mouth 3 (three) times daily for 10 days. [facility] oxyCODONE (OXY-IR) 10 mg tablet 2022-07 00:00: 00 06-26 23:59 :00 No 10mg Take 1 tablet (10 mg total) by mouth every 8 (eight) hours as needed for up to 10 days. Max Daily Amount: 30 mg [facility] cyclobenzap rine (FLEXERIL) 10 MG tablet 2022-07 00:00: 00 06-26 23:59 :00 No 10mg Q.[id number] 3D Take 1 tablet (10 mg total) by mouth 3 (three) times daily for 10 days. [facility] oxyCODONE (OXY-IR) 10 mg tablet 2022-07 00:00: 00 06-26 23:59 :00 No 10mg Take 1 tablet (10 mg total) by mouth every 8 (eight) hours as needed for up to 10 days. Max Daily Amount: 30 mg [facility] cyclobenzap rine (FLEXERIL) 10 MG tablet 2022-07 00:00: 00 06-26 23:59 :00 No 10mg Q.[id number] 3D Take 1 tablet (10 mg total) by mouth 3 (three) times daily for 10 days. [facility] oxyCODONE (OXY-IR) 10 mg tablet 2022-07 00:00: 00 06-26 23:59 :00 No 10mg Take 1 tablet (10 mg total) by mouth every 8 (eight) hours as needed for up to 10 days. Max Daily Amount: 30 mg [facility] cyclobenzap rine (FLEXERIL) 10 MG tablet 2022-07 00:00: 00 06-26 23:59 :00 No 10mg Q.[id number] 3D Take 1 tablet (10 mg total) by mouth 3 (three) times daily for 10 days. [facility] oxyCODONE (OXY-IR) 10 mg tablet 2022-07 00:00: 00 06-26 23:59 :00 No 10mg Take 1 tablet (10 mg total) by mouth every 8 (eight) hours as needed for up to 10 days. Max Daily Amount: 30 mg [facility] cyclobenzap rine (FLEXERIL) 10 MG tablet 2022-07 00:00: 00 06-26 23:59 :00 Yes 10mg Q.[id number] 3D Take 1 tablet (10 mg total) by mouth 3 (three) times daily for 10 days. [facility] oxyCODONE (OXY-IR) 10 mg tablet 2022-07 00:00: 00 06-26 23:59 :00 Yes 10mg Take 1 tablet (10 mg total) by mouth every 8 (eight) hours as needed for up to 10 days. Max Daily Amount: 30 mg [facility] cyclobenzap rine (FLEXERIL) 10 MG tablet 2022-07 00:00: 00 06-26 23:59 :00 Yes 10mg Q.[id number] 3D Take 1 tablet (10 mg total) by mouth 3 (three) times daily for 10 days. [facility] oxyCODONE (OXY-IR) 10 mg tablet 2022-07 00:00: 00 06-26 23:59 :00 Yes 10mg Take 1 tablet (10 mg total) by mouth every 8 (eight) hours as needed for up to 10 days. Max Daily Amount: 30 mg [facility] nystatin (MYCOSTATIN ) 100,000 unit/mL suspension 2022-07 00:00: 00 06-21 23:59 :00 No [id number] Q.25D Take 5 mLs (500,000 Units total) by mouth 4 (four) times daily for 5 days. [facility] nystatin (MYCOSTATIN ) 100,000 unit/mL suspension 2022-07 00:00: 00 06-21 23:59 :00 No [id number] Q.25D Take 5 mLs (500,000 Units total) by mouth 4 (four) times daily for 5 days. [facility] nystatin (MYCOSTATIN ) 100,000 unit/mL suspension 2022-07 00:00: 00 06-21 23:59 :00 No [id number] Q.25D Take 5 mLs (500,000 Units total) by mouth 4 (four) times daily for 5 days. [facility] nystatin (MYCOSTATIN ) 100,000 unit/mL suspension 2022-07 00:00: 00 06-21 23:59 :00 No [id number] Q.25D Take 5 mLs (500,000 Units total) by mouth 4 (four) times daily for 5 days. [facility] [place] nystatin (MYCOSTATIN ) 100,000 unit/mL suspension 2022-07 00:00: 00 06-21 23:59 :00 Yes [id number] Q.25D Take 5 mLs (500,000 Units total) by mouth 4 (four) times daily for 5 days. [facility] [place] nystatin (MYCOSTATIN ) 100,000 unit/mL suspension 2022-07 00:00: 00 06-21 23:59 :00 Yes [id number] Q.25D Take 5 mLs (500,000 Units total) by mouth 4 (four) times daily for 5 days. [facility] dexAMETHaso ne (DECADRON) 2 MG tablet 2022-07 00:00: 00 06-08 23:59 :00 No 1mg Take 0.5 tablets (1 mg total) by mouth 2 (two) times daily with breakfast and dinner for 2 days. [facility] dexAMETHaso ne (DECADRON) 2 MG tablet 2022-07 00:00: 00 06-08 23:59 :00 No 1mg Take 0.5 tablets (1 mg total) by mouth 2 (two) times daily with breakfast and dinner for 2 days. [facility] dexAMETHaso ne (DECADRON) 2 MG tablet 2022-07 00:00: 00 06-08 23:59 :00 No 1mg Take 0.5 tablets (1 mg total) by mouth 2 (two) times daily with breakfast and dinner for 2 days. [facility] dexAMETHaso ne (DECADRON) 2 MG tablet 2022-07 00:00: 00 06-08 23:59 :00 No 1mg Take 0.5 tablets (1 mg total) by mouth 2 (two) times daily with breakfast and dinner for 2 days. [facility] dexAMETHaso ne (DECADRON) 2 MG tablet 2022-07 00:00: 00 06-08 23:59 :00 Yes 1mg Take 0.5 tablets (1 mg total) by mouth 2 (two) times daily with breakfast and dinner for 2 days. [facility] dexAMETHaso ne (DECADRON) 2 MG tablet 2022-07 00:00: 00 06-08 23:59 :00 Yes 1mg Take 0.5 tablets (1 mg total) by mouth 2 (two) times daily with breakfast and dinner for 2 days. [facility] dexAMETHaso ne (DECADRON) 2 MG tablet 2022-07 00:00: 00 06-08 23:59 :00 No 1mg Take 0.5 tablets (1 mg total) by mouth 2 (two) times daily with breakfast and dinner for 2 days. [facility] dexAMETHaso ne (DECADRON) 2 MG tablet 2022-07 00:00: 00 06-08 23:59 :00 No 1mg Take 0.5 tablets (1 mg total) by mouth 2 (two) times daily with breakfast and dinner for 2 days. [facility] dexAMETHaso ne (DECADRON) 2 MG tablet 2022-07 00:00: 00 06-08 23:59 :00 No 1mg Take 0.5 tablets (1 mg total) by mouth 2 (two) times daily with breakfast and dinner for 2 days. [facility] dexAMETHaso ne (DECADRON) 2 MG tablet 2022-07 00:00: 00 06-06 23:59 :00 No 2mg Take 1 tablet (2 mg total) by mouth 2 (two) times daily with breakfast and dinner for 1 day. [facility] dexAMETHaso ne (DECADRON) 2 MG tablet 2022-07 00:00: 00 06-06 23:59 :00 No 2mg Take 1 tablet (2 mg total) by mouth 2 (two) times daily with breakfast and dinner for 1 day. [facility] dexAMETHaso ne (DECADRON) 2 MG tablet 2022-07 00:00: 00 06-06 23:59 :00 No 2mg Take 1 tablet (2 mg total) by mouth 2 (two) times daily with breakfast and dinner for 1 day. [facility] dexAMETHaso ne (DECADRON) 2 MG tablet 2022-07 00:00: 00 06-06 23:59 :00 No 2mg Take 1 tablet (2 mg total) by mouth 2 (two) times daily with breakfast and dinner for 1 day. [facility] dexAMETHaso ne (DECADRON) 2 MG tablet 2022-07 00:00: 00 06-06 23:59 :00 Yes 2mg Take 1 tablet (2 mg total) by mouth 2 (two) times daily with breakfast and dinner for 1 day. [facility] [place] dexAMETHaso ne (DECADRON) 2 MG tablet 2022-07 00:00: 00 06-06 23:59 :00 Yes 2mg Take 1 tablet (2 mg total) by mouth 2 (two) times daily with breakfast and dinner for 1 day. [facility] [place] dexAMETHaso ne (DECADRON) 2 MG tablet 2022-07 00:00: 00 06-06 23:59 :00 No 2mg Take 1 tablet (2 mg total) by mouth 2 (two) times daily with breakfast and dinner for 1 day. [facility] [place] dexAMETHaso ne (DECADRON) 2 MG tablet 2022-07 00:00: 00 06-06 23:59 :00 No 2mg Take 1 tablet (2 mg total) by mouth 2 (two) times daily with breakfast and dinner for 1 day. [facility] dexAMETHaso ne (DECADRON) 2 MG tablet 2022-07 00:00: 00 06-06 23:59 :00 No 2mg Take 1 tablet (2 mg total) by mouth 2 (two) times daily with breakfast and dinner for 1 day. [facility] metoprolol succinate (TOPROL-XL) 25 MG 24 hr tablet 2022-07 17:44: 21 Yes 25mg QD Take 1 tablet (25 mg total) by mouth daily. [facility] varenicline (CHANTIX) 1 mg tablet 2022-07 17:44: 21 Yes 1mg Q.5D Take 1 tablet (1 mg total) by mouth 2 (two) times daily Give with meals and with a full glass of water.. [facility] albuterol HFA (VENTOLIN HFA) 90 mcg/actuati on inhaler 2022-07 17:44: 21 Yes 1{puff} Inhale 1 puff by mouth via inhaler every 6 (six) hours as needed for Wheezing. [facility] fluticasone -umeclidin- vilanter (Trelegy Ellipta) 200-62.5-25 mcg DsDv 2022-07 17:44: 21 Yes QD Inhale by mouth via inhaler daily. [facility] atorvastati [place] (LIPITOR) 20 MG tablet 2022-07 17:44: 21 Yes 20mg QD Take 1 tablet (20 mg total) by mouth daily. [facility] acetaminoph en-codeine (TYLENOL #3) 300-30 mg per tablet 2022-07 17:44: 21 Yes 1{tbl} Take 1 tablet by mouth every 4 (four) hours as needed for Pain. [facility] metoprolol succinate (TOPROL-XL) 25 MG 24 hr tablet 2022-07 17:44: 21 Yes 25mg QD Take 1 tablet (25 mg total) by mouth daily. [facility] varenicline (CHANTIX) 1 mg tablet 2022-07 17:44: 21 Yes 1mg Q.5D Take 1 tablet (1 mg total) by mouth 2 (two) times daily Give with meals and with a full glass of water.. [facility] albuterol HFA (VENTOLIN HFA) 90 mcg/actuati on inhaler 2022-07 17:44: 21 Yes 1{puff} Inhale 1 puff by mouth via inhaler every 6 (six) hours as needed for Wheezing. [facility] [place] fluticasone -umeclidin- vilanter (Trelegy Ellipta) 200-62.5-25 mcg DsDv 2022-07 17:44: 21 Yes QD Inhale by mouth via inhaler daily. [facility] [place] atorvastati [place] (LIPITOR) 20 MG tablet 2022-07 17:44: 21 Yes 20mg QD Take 1 tablet (20 mg total) by mouth daily. [facility] acetaminoph en-codeine (TYLENOL #3) 300-30 mg per tablet 2022-07 17:44: 21 Yes 1{tbl} Take 1 tablet by mouth every 4 (four) hours as needed for Pain. [facility] metoprolol succinate (TOPROL-XL) 25 MG 24 hr tablet 2022-07 17:44: 21 Yes 25mg QD Take 1 tablet (25 mg total) by mouth daily. [facility] varenicline (CHANTIX) 1 mg tablet 2022-07 17:44: 21 Yes 1mg Q.5D Take 1 tablet (1 mg total) by mouth 2 (two) times daily Give with meals and with a full glass of water.. [facility] [place] albuterol HFA (VENTOLIN HFA) 90 mcg/actuati on inhaler 2022-07 17:44: 21 Yes 1{puff} Inhale 1 puff by mouth via inhaler every 6 (six) hours as needed for Wheezing. [facility] [place] fluticasone -umeclidin- vilanter (Trelegy Ellipta) 200-62.5-25 mcg DsDv 2022-07 17:44: 21 Yes QD Inhale by mouth via inhaler daily. [facility] [place] atorvastati [place] (LIPITOR) 20 MG tablet 2022-07 17:44: 21 Yes 20mg QD Take 1 tablet (20 mg total) by mouth daily. [facility] [place] acetaminoph en-codeine (TYLENOL #3) 300-30 mg per tablet 2022-07 17:44: 21 Yes 1{tbl} Take 1 tablet by mouth every 4 (four) hours as needed for Pain. [facility] senna (SENOKOT) 8.6 mg tablet 2022-07 00:00: 00 06-18 23:59 :00 No 17.2mg Q.5D Take 2 tablets (17.2 mg total) by mouth 2 (two) times daily for 14 days. [facility] senna (SENOKOT) 8.6 mg tablet 2022-07 00:00: 00 06-18 23:59 :00 No 17.2mg Q.5D Take 2 tablets (17.2 mg total) by mouth 2 (two) times daily for 14 days. [facility] [place] senna (SENOKOT) 8.6 mg tablet 2022-07 00:00: 00 06-18 23:59 :00 No 17.2mg Q.5D Take 2 tablets (17.2 mg total) by mouth 2 (two) times daily for 14 days. [facility] [place] senna (SENOKOT) 8.6 mg tablet 2022-07 00:00: 00 06-18 23:59 :00 No 17.2mg Q.5D Take 2 tablets (17.2 mg total) by mouth 2 (two) times daily for 14 days. [facility] [place] senna (SENOKOT) 8.6 mg tablet 2022-07 00:00: 00 06-18 23:59 :00 Yes 17.2mg Q.5D Take 2 tablets (17.2 mg total) by mouth 2 (two) times daily for 14 days. [facility] [place] senna (SENOKOT) 8.6 mg tablet 2022-07 00:00: 00 06-18 23:59 :00 Yes 17.2mg Q.5D Take 2 tablets (17.2 mg total) by mouth 2 (two) times daily for 14 days. [facility] [place] senna (SENOKOT) 8.6 mg tablet 2022-07 00:00: 00 06-18 23:59 :00 Yes 17.2mg Q.5D Take 2 tablets (17.2 mg total) by mouth 2 (two) times daily for 14 days. [facility] [place] senna (SENOKOT) 8.6 mg tablet 2022-07 00:00: 00 06-18 23:59 :00 Yes 17.2mg Q.5D Take 2 tablets (17.2 mg total) by mouth 2 (two) times daily for 14 days. [facility] [place] senna (SENOKOT) 8.6 mg tablet 2022-07 00:00: 00 06-18 23:59 :00 No 17.2mg Q.5D Take 2 tablets (17.2 mg total) by mouth 2 (two) times daily for 14 days. [facility] [place] cyclobenzap rine (FLEXERIL) 10 MG tablet 2022-07 00:00: 00 06-16 00:00 :00 No 10mg Q.[id number] 3D Take 1 tablet (10 mg total) by mouth 3 (three) times daily for 10 days. [facility] methocarbam oL (ROBAXIN) 500 MG tablet 2022-07 00:00: 00 06-16 00:00 :00 No 500mg Q.25D Take 1 tablet (500 mg total) by mouth 4 (four) times daily for 10 days. [facility] [place] cyclobenzap rine (FLEXERIL) 10 MG tablet 2022-07 00:00: 00 06-16 00:00 :00 No 10mg Q.[id number] 3D Take 1 tablet (10 mg total) by mouth 3 (three) times daily for 10 days. [facility] [place] methocarbam oL (ROBAXIN) 500 MG tablet 2022-07 00:00: 00 06-16 00:00 :00 No 500mg Q.25D Take 1 tablet (500 mg total) by mouth 4 (four) times daily for 10 days. [facility] [place] cyclobenzap rine (FLEXERIL) 10 MG tablet 2022-07 00:00: 00 06-16 00:00 :00 No 10mg Q.77137649 [id number] 3D Take 1 tablet (10 mg total) by mouth 3 (three) times daily for 10 days. [facility] [place] methocarbam oL (ROBAXIN) 500 MG tablet 2022-07 00:00: 00 06-16 00:00 :00 No 500mg Q.25D Take 1 tablet (500 mg total) by mouth 4 (four) times daily for 10 days. [facility] [place] cyclobenzap rine (FLEXERIL) 10 MG tablet 2022-07 00:00: 00 06-16 00:00 :00 No 10mg Q.[id number] 3D Take 1 tablet (10 mg total) by mouth 3 (three) times daily for 10 days. [facility] [place] methocarbam oL (ROBAXIN) 500 MG tablet 2022-07 00:00: 00 06-16 00:00 :00 No 500mg Q.25D Take 1 tablet (500 mg total) by mouth 4 (four) times daily for 10 days. [facility] [place] cyclobenzap rine (FLEXERIL) 10 MG tablet 2022-07 00:00: 00 06-16 00:00 :00 No 10mg Q.[id number] 3D Take 1 tablet (10 mg total) by mouth 3 (three) times daily for 10 days. [facility] [place] methocarbam oL (ROBAXIN) 500 MG tablet 2022-07 00:00: 00 06-16 00:00 :00 No 500mg Q.25D Take 1 tablet (500 mg total) by mouth 4 (four) times daily for 10 days. [facility] [place] cyclobenzap rine (FLEXERIL) 10 MG tablet 2022-07 00:00: 00 06-16 00:00 :00 No 10mg Q.[id number] 3D Take 1 tablet (10 mg total) by mouth 3 (three) times daily for 10 days. [facility] [place] methocarbam oL (ROBAXIN) 500 MG tablet 2022-07 00:00: 00 06-16 00:00 :00 No 500mg Q.25D Take 1 tablet (500 mg total) by mouth 4 (four) times daily for 10 days. [facility] [place] cyclobenzap rine (FLEXERIL) 10 MG tablet 2022-07 00:00: 00 06-14 23:59 :00 Yes 10mg Q.[id number] [id number] 3D Take 1 tablet (10 mg total) by mouth 3 (three) times daily for 10 days. [facility] [place] methocarbam oL (ROBAXIN) 500 MG tablet 2022-07 00:00: 00 06-14 23:59 :00 Yes 500mg Q.25D Take 1 tablet (500 mg total) by mouth 4 (four) times daily for 10 days. [facility] [place] cyclobenzap rine (FLEXERIL) 10 MG tablet 2022-07 00:00: 00 06-14 23:59 :00 Yes 10mg Q.[id number] [id number] 3D Take 1 tablet (10 mg total) by mouth 3 (three) times daily for 10 days. [facility] [place] methocarbam oL (ROBAXIN) 500 MG tablet 2022-07 00:00: 00 06-14 23:59 :00 Yes 500mg Q.25D Take 1 tablet (500 mg total) by mouth 4 (four) times daily for 10 days. [facility] [place] cyclobenzap rine (FLEXERIL) 10 MG tablet 2022-07 00:00: 00 06-14 23:59 :00 Yes 10mg Q.[id number] [id number] 3D Take 1 tablet (10 mg total) by mouth 3 (three) times daily for 10 days. [facility] [place] methocarbam oL (ROBAXIN) 500 MG tablet 2022-07 00:00: 00 06-14 23:59 :00 Yes 500mg Q.25D Take 1 tablet (500 mg total) by mouth 4 (four) times daily for 10 days. [facility] lactulose (CHRONULAC) 20 gram/30 mL solution 2022-07 00:00: 00 06-11 23:59 :00 No 20g Q.[id number] 3D Take 30 mLs (20 g total) by mouth 3 (three) times daily for 7 days. [facility] ondansetron (ZOFRAN-ODT ) 4 MG disintegrat ing tablet 2022-07 00:00: 00 06-11 23:59 :00 No 4mg Take 1 tablet (4 mg total) by mouth every 6 (six) hours as needed for up to 7 days. [facility] [place] lactulose (CHRONULAC) 20 gram/30 mL solution 2022-07 00:00: 00 06-11 23:59 :00 No 20g Q.43513301 [id number] 3D Take 30 mLs (20 g total) by mouth 3 (three) times daily for 7 days. [facility] [place] ondansetron (ZOFRAN-ODT ) 4 MG disintegrat ing tablet 2022-07 00:00: 00 06-11 23:59 :00 No 4mg Take 1 tablet (4 mg total) by mouth every 6 (six) hours as needed for up to 7 days. [facility] [place] lactulose (CHRONULAC) 20 gram/30 mL solution 2022-07 00:00: 00 06-11 23:59 :00 No 20g Q.[id number] 3D Take 30 mLs (20 g total) by mouth 3 (three) times daily for 7 days. [facility] [place] ondansetron (ZOFRAN-ODT ) 4 MG disintegrat ing tablet 2022-07 00:00: 00 06-11 23:59 :00 No 4mg Take 1 tablet (4 mg total) by mouth every 6 (six) hours as needed for up to 7 days. [facility] [place] lactulose (CHRONULAC) 20 gram/30 mL solution 2022-07 00:00: 00 06-11 23:59 :00 No 20g Q.44212893 [id number] 3D Take 30 mLs (20 g total) by mouth 3 (three) times daily for 7 days. [facility] [place] ondansetron (ZOFRAN-ODT ) 4 MG disintegrat ing tablet 2022-07 00:00: 00 06-11 23:59 :00 No 4mg Take 1 tablet (4 mg total) by mouth every 6 (six) hours as needed for up to 7 days. [facility] [place] lactulose (CHRONULAC) 20 gram/30 mL solution 2022-07 00:00: 00 06-11 23:59 :00 Yes 20g Q.[id number] [id number] 3D Take 30 mLs (20 g total) by mouth 3 (three) times daily for 7 days. [facility] [place] ondansetron (ZOFRAN-ODT ) 4 MG disintegrat ing tablet 2022-07 00:00: 00 06-11 23:59 :00 Yes 4mg Take 1 tablet (4 mg total) by mouth every 6 (six) hours as needed for up to 7 days. [facility] [place] lactulose (CHRONULAC) 20 gram/30 mL solution 2022-07 00:00: 00 06-11 23:59 :00 Yes 20g Q.[id number] 3D Take 30 mLs (20 g total) by mouth 3 (three) times daily for 7 days. [facility] [place] ondansetron (ZOFRAN-ODT ) 4 MG disintegrat ing tablet 2022-07 00:00: 00 2023- 11-23 23:59 :00 Yes 4mg Take 1 tablet (4 mg total) by mouth every 6 (six) hours as needed for up to 7 days. [facility] [place] lactulose (CHRONULAC) 20 gram/30 mL solution 2022-07 00:00: 00 06-11 23:59 :00 No 20g Q.[id number] 3D Take 30 mLs (20 g total) by mouth 3 (three) times daily for 7 days. [facility] [place] ondansetron (ZOFRAN-ODT ) 4 MG disintegrat ing tablet 2022-07 00:00: 00 06-11 23:59 :00 No 4mg Take 1 tablet (4 mg total) by mouth every 6 (six) hours as needed for up to 7 days. [facility] [place] lactulose (CHRONULAC) 20 gram/30 mL solution 2022-07 00:00: 00 06-11 23:59 :00 No 20g Q.[id number] 3D Take 30 mLs (20 g total) by mouth 3 (three) times daily for 7 days. [facility] [place] ondansetron (ZOFRAN-ODT ) 4 MG disintegrat ing tablet 2022-07 00:00: 00 06-11 23:59 :00 No 4mg Take 1 tablet (4 mg total) by mouth every 6 (six) hours as needed for up to 7 days. [facility] [place] lactulose (CHRONULAC) 20 gram/30 mL solution 2022-07 00:00: 00 06-11 23:59 :00 No 20g Q.[id number] 3D Take 30 mLs (20 g total) by mouth 3 (three) times daily for 7 days. [facility] [place] ondansetron (ZOFRAN-ODT ) 4 MG disintegrat ing tablet 2022-07 00:00: 00 06-11 23:59 :00 No 4mg Take 1 tablet (4 mg total) by mouth every 6 (six) hours as needed for up to 7 days. [facility] [place] fluticasone -umeclidin- vilanter (Trelegy Ellipta) 200-62.5-25 mcg DsDv 2022-07 15:23: 22 Yes QD Inhale by mouth via inhaler daily. [facility] [place] atorvastati [place] (LIPITOR) 20 MG tablet 2022-07 15:23: 22 Yes 20mg QD Take 1 tablet (20 mg total) by mouth daily. [facility] [place] acetaminoph [place]-codeine (TYLENOL #3) 300-30 mg per tablet 2022-07 15:23: 22 Yes 1{tbl} Take 1 tablet by mouth every 4 (four) hours as needed for Pain. [facility] [facility] [place]TOPROL-XL) 25 MG 24 hr tablet 2022-07 15:23: 22 Yes 25mg QD Take 1 tablet (25 mg total) by mouth daily. [facility] [place]arenicline (CHANTIX) 1 mg tablet 2022-07 15:23: 22 Yes 1mg Q.5D Take 1 tablet (1 mg total) by mouth 2 (two) times daily Give with meals and with a full glass of water.. [facility] [place] albuterol HFA (VENTOLIN HFA) 90 mcg/actuati on inhaler 2022-07 15:23: 22 Yes 1{puff} Inhale 1 puff by mouth via inhaler every 6 (six) hours as needed for Wheezing. [facility] [place]-codeine (TYLENOL #3) 300-30 mg per tablet 2022-07 09:42: 02 Yes 1{tbl} Take 1 tablet by mouth every 4 (four) hours as needed for Pain. Max Daily Amount: 6 tablets [facility] [place]amin[place]-codeine (TYLENOL #3) 300-30 mg per tablet 2022-07 09:42: 02 Yes 1{tbl} Take 1 tablet by mouth every 4 (four) hours as needed for Pain. Max Daily Amount: 6 tablets [facility] [place] varenicline (CHANTIX) 1 mg tablet 2022-07 09:40: 04 Yes 1mg Q.5D Take 1 tablet (1 mg total) by mouth 2 (two) times daily Give with meals and with a full glass of water.. [facility] [place] al[place]erol HFA (VENTOLIN HFA) 90 mcg/actuati on inhaler 2022-07 09:40: 04 Yes 1{puff} Inhale 1 puff by mouth via inhaler every 6 (six) hours as needed for Wheezing. [facility] [place] fluticasone -umeclidin- vilanter (Trelegy Ellipta) 200-62.5-25 mcg DsDv 2022-07 09:40: 04 Yes QD Inhale by mouth via inhaler daily. [facility] [place] atorvast[place] (LIPITOR) 20 MG tablet 2022-07 09:40: 04 Yes 20mg QD Take 1 tablet (20 mg total) by mouth daily. [facility] [place] varenicline (CHANTIX) 1 mg tablet 2022-07 09:40: 04 Yes 1mg Q.5D Take 1 tablet (1 mg total) by mouth 2 (two) times daily Give with meals and with a full glass of water.. [facility] [place] albuterol HFA (VENTOLIN HFA) 90 mcg/actuati on inhaler 2022-07 09:40: 04 Yes 1{puff} Inhale 1 puff by mouth via inhaler every 6 (six) hours as needed for Wheezing. [facility] [place] fluticasone -umeclidin- vilanter (Trelegy Ellipta) 200-62.5-25 mcg DsDv 2022-07 09:40: 04 Yes QD Inhale by mouth via inhaler daily. [facility] [place] atorvast[place] (LIPITOR) 20 MG tablet 2022-07 09:40: 04 Yes 20mg QD Take 1 tablet (20 mg total) by mouth daily. [facility] [place]ol succinate (TOPROL-XL) 25 MG 24 hr tablet 2022-07 09:13: 28 Yes 25mg QD Take 1 tablet (25 mg total) by mouth daily. [facility] [place]ol succinate (TOPROL-XL) 25 MG 24 hr tablet 2022-07 09:13: 28 Yes 25mg QD Take 1 tablet (25 mg total) by mouth daily. [facility] [place] furosemide (LASIX) 20 MG tablet 2022-0 -15 00:00: 00 04-02 23:59 :00 No 20mg QD Take 1 tablet (20 mg total) by mouth daily. [facility] [place] furosemide (LASIX) 20 MG tablet 0 -15 00:00: 00 04-02 23:59 :00 No 20mg QD Take 1 tablet (20 mg total) by mouth daily. [facility] [place] DULox[place] (CYMBALTA) 30 MG capsule 0 -15 00:00: 00 04-02 23:59 :00 No 30mg QD Take 1 capsule (30 mg total) by mouth daily. [facility] [place] furosemide (LASIX) 20 MG tablet 0 15 00:00: 00 04-02 23:59 :00 No 20mg QD Take 1 tablet (20 mg total) by mouth daily. [facility] [place] lisinopriL (PRINIVIL,Z ESTRIL) 5 MG tablet 0 15 00:00: 00 04-02 23:59 :00 No 5mg QD Take 1 tablet (5 mg total) by mouth daily. [facility] [place] furosemide (LASIX) 20 MG tablet 0 -15 00:00: 00 04-02 23:59 :00 No 20mg QD Take 1 tablet (20 mg total) by mouth daily. [facility] [place] furosemide (LASIX) 20 MG tablet 0 -15 00:00: 00 04-02 23:59 :00 No 20mg QD Take 1 tablet (20 mg total) by mouth daily. [facility] [place] furosemide (LASIX) 20 MG tablet 2022-0 -15 00:00: 00 04-02 23:59 :00 No 20mg QD Take 1 tablet (20 mg total) by mouth daily. [facility] [place] DULoxetine (CYMBALTA) 30 MG capsule 2022-0 9-15 00:00: 00 04-02 23:59 :00 No 30mg QD Take 1 capsule (30 mg total) by mouth daily. [facility] [place] lisinopriL (PRINIVIL,Z ESTRIL) 5 MG tablet 2022-0 9-15 00:00: 00 04-02 23:59 :00 No 5mg QD Take 1 tablet (5 mg total) by mouth daily. [facility] [place] furosemide (LASIX) 20 MG tablet 2022-0 9-15 00:00: 00 04-02 23:59 :00 No 20mg QD Take 1 tablet (20 mg total) by mouth daily. [facility] [place] DULoxetine (CYMBALTA) 30 MG capsule 2022-0 9-15 00:00: 00 04-02 23:59 :00 No 30mg QD Take 1 capsule (30 mg total) by mouth daily. [facility] [place] lisinopriL (PRINIVIL,Z ESTRIL) 5 MG tablet 2022-0 9-15 00:00: 00 04-02 23:59 :00 No 5mg QD Take 1 tablet (5 mg total) by mouth daily. [facility] [place] furosemide (LASIX) 20 MG tablet 2022-0 -15 00:00: 00 04-02 23:59 :00 No 20mg QD Take 1 tablet (20 mg total) by mouth daily. [facility] [place] DULoxetine (CYMBALTA) 30 MG capsule 2022-0 9-15 00:00: 00 04-02 23:59 :00 No 30mg QD Take 1 capsule (30 mg total) by mouth daily. [facility] [place] lisinopriL (PRINIVIL,Z ESTRIL) 5 MG tablet 2022-0 -15 00:00: 00 04-02 23:59 :00 No 5mg QD Take 1 tablet (5 mg total) by mouth daily. [facility] [place] furosemide (LASIX) 20 MG tablet 2022-0 9-15 00:00: 00 04-02 23:59 :00 No 20mg QD Take 1 tablet (20 mg total) by mouth daily. [facility] [place] DULoxetine (CYMBALTA) 30 MG capsule 2022-0 9-15 00:00: 00 04-02 23:59 :00 No 30mg QD Take 1 capsule (30 mg total) by mouth daily. [facility] [place] lisinopriL (PRINIVIL,Z ESTRIL) 5 MG tablet 2022-0 9-15 00:00: 00 04-02 23:59 :00 No 5mg QD Take 1 tablet (5 mg total) by mouth daily. [facility] [place] furosemide (LASIX) 20 MG tablet 2022-0 9-15 00:00: 00 04-02 23:59 :00 No 20mg QD Take 1 tablet (20 mg total) by mouth daily. [facility] [place] DULoxetine (CYMBALTA) 30 MG capsule 2022-0 9-15 00:00: 00 04-02 23:59 :00 No 30mg QD Take 1 capsule (30 mg total) by mouth daily. [facility] [place] lisinopriL (PRINIVIL,Z ESTRIL) 5 MG tablet 2022-0 9-15 00:00: 00 04-02 23:59 :00 No 5mg QD Take 1 tablet (5 mg total) by mouth daily. [facility] [place] furosemide (LASIX) 20 MG tablet 2022-0 9-15 00:00: 00 04-02 23:59 :00 No 20mg QD Take 1 tablet (20 mg total) by mouth daily. [facility] [place] DULoxetine (CYMBALTA) 30 MG capsule 2022-0 9-15 00:00: 00 04-02 23:59 :00 No 30mg QD Take 1 capsule (30 mg total) by mouth daily. [facility] [place] lisinopriL (PRINIVIL,Z ESTRIL) 5 MG tablet 2022-0 9-15 00:00: 00 04-02 23:59 :00 No 5mg QD Take 1 tablet (5 mg total) by mouth daily. [facility] [place] furosemide (LASIX) 20 MG tablet 2022-0 9-15 00:00: 00 04-02 23:59 :00 No 20mg QD Take 1 tablet (20 mg total) by mouth daily. [facility] [place] DULoxetine (CYMBALTA) 30 MG capsule 2022-0 9-15 00:00: 00 04-02 23:59 :00 No 30mg QD Take 1 capsule (30 mg total) by mouth daily. [facility] [place] lisinopriL (PRINIVIL,Z ESTRIL) 5 MG tablet 2022-0 9-15 00:00: 00 04-02 23:59 :00 No 5mg QD Take 1 tablet (5 mg total) by mouth daily. [facility] [place] furosemide (LASIX) 20 MG tablet 2022-0 -15 00:00: 00 04-02 23:59 :00 No 20mg QD Take 1 tablet (20 mg total) by mouth daily. [facility] [place] DULoxetine (CYMBALTA) 30 MG capsule 2022-0 -15 00:00: 00 04-02 23:59 :00 No 30mg QD Take 1 capsule (30 mg total) by mouth daily. [facility] [place] lisinopriL (PRINIVIL,Z ESTRIL) 5 MG tablet 2022-0 -15 00:00: 00 04-02 23:59 :00 No 5mg QD Take 1 tablet (5 mg total) by mouth daily. [facility] [place] furosemide (LASIX) 20 MG tablet 2022-0 -15 00:00: 00 04-02 23:59 :00 No 20mg QD Take 1 tablet (20 mg total) by mouth daily. [facility] [place] DULoxetine (CYMBALTA) 30 MG capsule 2022-0 -15 00:00: 00 04-02 23:59 :00 No 30mg QD Take 1 capsule (30 mg total) by mouth daily. [facility] [place] furosemide (LASIX) 20 MG tablet 2022-0 9-15 00:00: 00 04-02 23:59 :00 No 20mg QD Take 1 tablet (20 mg total) by mouth daily. [facility] [place] DULoxetine (CYMBALTA) 30 MG capsule 2022-0 9-15 00:00: 00 04-02 23:59 :00 No 30mg QD Take 1 capsule (30 mg total) by mouth daily. [facility] [place] furosemide (LASIX) 20 MG tablet 2022-0 9-15 00:00: 00 04-02 23:59 :00 No 20mg QD Take 1 tablet (20 mg total) by mouth daily. [facility] [place] DULoxetine (CYMBALTA) 30 MG capsule 04-03 00:00: 00 04-02 23:59 :00 No 30mg QD Take 1 capsule (30 mg total) by mouth daily. [facility] [place] furosemide (LASIX) 20 MG tablet 04-03 00:00: 00 04-02 23:59 :00 No 20mg QD Take 1 tablet (20 mg total) by mouth daily. [facility] [place] DULoxetine (CYMBALTA) 30 MG capsule 04-03 00:00: 00 04-02 23:59 :00 No 30mg QD Take 1 capsule (30 mg total) by mouth daily. [facility] [place] furosemide (LASIX) 20 MG tablet 04-03 00:00: 00 04-02 23:59 :00 No 20mg QD Take 1 tablet (20 mg total) by mouth daily. [facility] [place] furosemide (LASIX) 20 MG tablet 04-03 00:00: 00 04-02 23:59 :00 No 20mg QD Take 1 tablet (20 mg total) by mouth daily. [facility] [place] 81 MG EC tablet 04-03 00:00: 00 07-02 23:59 :00 No 81mg QD Take 1 tablet (81 mg total) by mouth daily for 90 days. [facility] [place] divalproex (DEPAKOTE) 500 MG EC tablet 04-03 00:00: 00 07-02 23:59 :00 No 500mg Q.5D Take 1 tablet (500 mg total) by mouth 2 (two) times daily for 90 days. [facility] [place] gabap[place] (NEURONTIN) 300 MG capsule 04-03 00:00: 00 07-02 23:59 :00 No 300mg Q.[id number] 3D Take 1 capsule (300 mg total) by mouth 3 (three) times daily for 90 days. [facility] [place] 81 MG EC tablet 04-03 00:00: 00 07-02 23:59 :00 No 81mg QD Take 1 tablet (81 mg total) by mouth daily for 90 days. [facility] [place] divalproex (DEPAKOTE) 500 MG EC tablet 04-03 00:00: 00 07-02 23:59 :00 No 500mg Q.5D Take 1 tablet (500 mg total) by mouth 2 (two) times daily for 90 days. [facility] [place] gabap[place] (NEURONTIN) 300 MG capsule 04-03 00:00: 00 07-02 23:59 :00 No 300mg Q.[id number] 3D Take 1 capsule (300 mg total) by mouth 3 (three) times daily for 90 days. [facility] [place] 81 MG EC tablet 04-03 00:00: 00 07-02 23:59 :00 No 81mg QD Take 1 tablet (81 mg total) by mouth daily for 90 days. [facility] [place] divalproex (DEPAKOTE) 500 MG EC tablet 04-03 00:00: 00 07-02 23:59 :00 No 500mg Q.5D Take 1 tablet (500 mg total) by mouth 2 (two) times daily for 90 days. [facility] [place] gabap[place] (NEURONTIN) 300 MG capsule 04-03 00:00: 00 07-02 23:59 :00 No 300mg Q.[id number] 3D Take 1 capsule (300 mg total) by mouth 3 (three) times daily for 90 days. [facility] [place] 81 MG EC tablet 04-03 00:00: 00 07-02 23:59 :00 No 81mg QD Take 1 tablet (81 mg total) by mouth daily for 90 days. [facility] [place] divalproex (DEPAKOTE) 500 MG EC tablet 04-03 00:00: 00 07-02 23:59 :00 No 500mg Q.5D Take 1 tablet (500 mg total) by mouth 2 (two) times daily for 90 days. [facility] [place] gabap[place] (NEURONTIN) 300 MG capsule 15 00:00: 00 07-02 23:59 :00 No 300mg Q.[id number] 3D Take 1 capsule (300 mg total) by mouth 3 (three) times daily for 90 days. [facility] [place] 81 MG EC tablet 15 00:00: 00 07-02 23:59 :00 No 81mg QD Take 1 tablet (81 mg total) by mouth daily for 90 days. [facility] [place] divalproex (DEPAKOTE) 500 MG EC tablet 04-03 00:00: 00 07-02 23:59 :00 No 500mg Q.5D Take 1 tablet (500 mg total) by mouth 2 (two) times daily for 90 days. [facility] [place] gabap[place] (NEURONTIN) 300 MG capsule 04-03 00:00: 00 07-02 23:59 :00 No 300mg Q.[id number] 3D Take 1 capsule (300 mg total) by mouth 3 (three) times daily for 90 days. [facility] [place] 81 MG EC tablet 04-03 00:00: 00 07-02 23:59 :00 No 81mg QD Take 1 tablet (81 mg total) by mouth daily for 90 days. [facility] [place] divalproex (DEPAKOTE) 500 MG EC tablet 04-03 00:00: 00 07-02 23:59 :00 No 500mg Q.5D Take 1 tablet (500 mg total) by mouth 2 (two) times daily for 90 days. [facility] [place] gabap[place] (NEURONTIN) 300 MG capsule 15 00:00: 00 07-02 23:59 :00 No 300mg Q.[id number] 3D Take 1 capsule (300 mg total) by mouth 3 (three) times daily for 90 days. [facility] [place] 81 MG EC tablet 15 00:00: 00 07-02 23:59 :00 No 81mg QD Take 1 tablet (81 mg total) by mouth daily for 90 days. [facility] [place] divalproex (DEPAKOTE) 500 MG EC tablet 04-03 00:00: 00 07-02 23:59 :00 No 500mg Q.5D Take 1 tablet (500 mg total) by mouth 2 (two) times daily for 90 days. [facility] [place] gabap[place] (NEURONTIN) 300 MG capsule 04-03 00:00: 00 07-02 23:59 :00 No 300mg Q.[id number] 3D Take 1 capsule (300 mg total) by mouth 3 (three) times daily for 90 days. [facility] [place] 81 MG EC tablet 04-03 00:00: 00 07-02 23:59 :00 No 81mg QD Take 1 tablet (81 mg total) by mouth daily for 90 days. [facility] [place] divalproex (DEPAKOTE) 500 MG EC tablet 04-03 00:00: 00 07-02 23:59 :00 No 500mg Q.5D Take 1 tablet (500 mg total) by mouth 2 (two) times daily for 90 days. [facility] [place] gabap[place] (NEURONTIN) 300 MG capsule 04-03 00:00: 00 07-02 23:59 :00 No 300mg Q.[id number] 3D Take 1 capsule (300 mg total) by mouth 3 (three) times daily for 90 days. [facility] [place] 81 MG EC tablet 04-03 00:00: 00 07-02 23:59 :00 No 81mg QD Take 1 tablet (81 mg total) by mouth daily for 90 days. [facility] [place] divalproex (DEPAKOTE) 500 MG EC tablet 04-03 00:00: 00 07-02 23:59 :00 No 500mg Q.5D Take 1 tablet (500 mg total) by mouth 2 (two) times daily for 90 days. [facility] [place] gabap[place] (NEURONTIN) 300 MG capsule 04-03 00:00: 00 07-02 23:59 :00 No 300mg Q.[id number] 3D Take 1 capsule (300 mg total) by mouth 3 (three) times daily for 90 days. [facility] [place] 81 MG EC tablet 04-03 00:00: 00 07-02 23:59 :00 No 81mg QD Take 1 tablet (81 mg total) by mouth daily for 90 days. [facility] [place] divalproex (DEPAKOTE) 500 MG EC tablet 04-03 00:00: 00 07-02 23:59 :00 No 500mg Q.5D Take 1 tablet (500 mg total) by mouth 2 (two) times daily for 90 days. [facility] [place] gabapentin (NEURONTIN) 300 MG capsule 04-03 00:00: 00 07-02 23:59 :00 No 300mg Q.[id number] 3D Take 1 capsule (300 mg total) by mouth 3 (three) times daily for 90 days. [facility] [place] 81 MG EC tablet 04-03 00:00: 00 07-02 23:59 :00 No 81mg QD Take 1 tablet (81 mg total) by mouth daily for 90 days. [facility] [place] divalproex (DEPAKOTE) 500 MG EC tablet 04-03 00:00: 00 07-02 23:59 :00 No 500mg Q.5D Take 1 tablet (500 mg total) by mouth 2 (two) times daily for 90 days. [facility] [place] gabap[place] (NEURONTIN) 300 MG capsule 04-03 00:00: 00 07-02 23:59 :00 No 300mg Q.[id number] 3D Take 1 capsule (300 mg total) by mouth 3 (three) times daily for 90 days. [facility] [place] 81 MG EC tablet 04-03 00:00: 00 07-02 23:59 :00 No 81mg QD Take 1 tablet (81 mg total) by mouth daily for 90 days. [facility] [place] divalproex (DEPAKOTE) 500 MG EC tablet 04-03 00:00: 07-02 23:59 :00 No 500mg Q.5D Take 1 tablet (500 mg total) by mouth 2 (two) times daily for 90 days. [facility] [place] gabapentin (NEURONTIN) 300 MG capsule 04-03 00:00: 00 07-02 23:59 :00 No 300mg Q.[id number] 3D Take 1 capsule (300 mg total) by mouth 3 (three) times daily for 90 days. [facility] [place] 81 MG EC tablet 04-03 00:00: 00 07-02 23:59 :00 No 81mg QD Take 1 tablet (81 mg total) by mouth daily for 90 days. [facility] [place] divalproex (DEPAKOTE) 500 MG EC tablet 04-03 00:00: 00 07-02 23:59 :00 No 500mg Q.5D Take 1 tablet (500 mg total) by mouth 2 (two) times daily for 90 days. [facility] [place] gabapentin (NEURONTIN) 300 MG capsule 04-03 00:00: 00 07-02 23:59 :00 No 300mg Q.[id number] 3D Take 1 capsule (300 mg total) by mouth 3 (three) times daily for 90 days. [facility] [place] 81 MG EC tablet 04-03 00:00: 00 07-02 23:59 :00 No 81mg QD Take 1 tablet (81 mg total) by mouth daily for 90 days. [facility] [place] divalproex (DEPAKOTE) 500 MG EC tablet 04-03 00:00: 00 07-02 23:59 :00 No 500mg Q.5D Take 1 tablet (500 mg total) by mouth 2 (two) times daily for 90 days. [facility] [place] gabapentin (NEURONTIN) 300 MG capsule 04-03 00:00: 00 07-02 23:59 :00 No 300mg Q.[id number] 3D Take 1 capsule (300 mg total) by mouth 3 (three) times daily for 90 days. [facility] [place] 81 MG EC tablet 15 00:00: 00 07-02 23:59 :00 No 81mg QD Take 1 tablet (81 mg total) by mouth daily for 90 days. [facility] [place] divalproex (DEPAKOTE) 500 MG EC tablet 15 00:00: 00 07-02 23:59 :00 No 500mg Q.5D Take 1 tablet (500 mg total) by mouth 2 (two) times daily for 90 days. [facility] [place] gabapentin (NEURONTIN) 300 MG capsule 15 00:00: 00 07-02 23:59 :00 No 300mg Q.[id number] 3D Take 1 capsule (300 mg total) by mouth 3 (three) times daily for 90 days. [facility] [place] 81 MG EC tablet 04-03 00:00: 00 07-02 23:59 :00 No 81mg QD Take 1 tablet (81 mg total) by mouth daily for 90 days. [facility] [place] divalproex (DEPAKOTE) 500 MG EC tablet 04-03 00:00: 00 07-02 23:59 :00 No 500mg Q.5D Take 1 tablet (500 mg total) by mouth 2 (two) times daily for 90 days. [facility] [place] gabapentin (NEURONTIN) 300 MG capsule 04-03 00:00: 00 07-02 23:59 :00 No 300mg Q.[id number] 3D Take 1 capsule (300 mg total) by mouth 3 (three) times daily for 90 days. [facility] [place] 81 MG EC tablet 15 00:00: 00 07-02 23:59 :00 No 81mg QD Take 1 tablet (81 mg total) by mouth daily for 90 days. [facility] [place] divalproex (DEPAKOTE) 500 MG EC tablet 15 00:00: 00 07-02 23:59 :00 No 500mg Q.5D Take 1 tablet (500 mg total) by mouth 2 (two) times daily for 90 days. [facility] [place] gabapentin (NEURONTIN) 300 MG capsule 04-03 00:00: 00 07-02 23:59 :00 No 300mg Q.[id number] 3D Take 1 capsule (300 mg total) by mouth 3 (three) times daily for 90 days. [facility] [place] 81 MG EC tablet 04-03 00:00: 00 07-02 23:59 :00 No 81mg QD Take 1 tablet (81 mg total) by mouth daily for 90 days. [facility] [place] divalproex (DEPAKOTE) 500 MG EC tablet 04-03 00:00: 00 07-02 23:59 :00 No 500mg Q.5D Take 1 tablet (500 mg total) by mouth 2 (two) times daily for 90 days. [facility] [place] gabapentin (NEURONTIN) 300 MG capsule 04-03 00:00: 00 07-02 23:59 :00 No 300mg Q.[id number] 3D Take 1 capsule (300 mg total) by mouth 3 (three) times daily for 90 days. [facility] [place] 81 MG EC tablet 04-03 00:00: 00 07-02 23:59 :00 No 81mg QD Take 1 tablet (81 mg total) by mouth daily for 90 days. [facility] [place] divalproex (DEPAKOTE) 500 MG EC tablet 04-03 00:00: 00 07-02 23:59 :00 No 500mg Q.5D Take 1 tablet (500 mg total) by mouth 2 (two) times daily for 90 days. [facility] [place] gabap[place] (NEURONTIN) 300 MG capsule 04-03 00:00: 00 07-02 23:59 :00 No 300mg Q.[id number] 3D Take 1 capsule (300 mg total) by mouth 3 (three) times daily for 90 days. [facility] [place] DULox[place] (CYMBALTA) 30 MG capsule 04-03 00:00: 00 06-16 00:00 :00 No 30mg QD Take 1 capsule (30 mg total) by mouth daily. [facility] [place] DULox[place] (CYMBALTA) 30 MG capsule 0 9-15 00:00: 00 06-16 00:00 :00 No 30mg QD Take 1 capsule (30 mg total) by mouth daily. [facility] [place] DULox[place] (CYMBALTA) 30 MG capsule 2022-0 9-15 00:00: 00 06-16 00:00 :00 No 30mg QD Take 1 capsule (30 mg total) by mouth daily. [facility] [place] DULoxetine (CYMBALTA) 30 MG capsule 2022-0 9-15 00:00: 00 06-16 00:00 :00 No 30mg QD Take 1 capsule (30 mg total) by mouth daily. [facility] [place] DULoxetine (CYMBALTA) 30 MG capsule 2022-0 9-15 00:00: 00 06-16 00:00 :00 No 30mg QD Take 1 capsule (30 mg total) by mouth daily. [facility] [place] DULox[place] (CYMBALTA) 30 MG capsule 2022-0 9-15 00:00: 00 06-16 00:00 :00 No 30mg QD Take 1 capsule (30 mg total) by mouth daily. [facility] [place] lisinopriL (PRINIVIL,Z ESTRIL) 5 MG tablet 9-15 00:00: 00 05-28 00:00 :00 No 5mg QD Take 1 tablet (5 mg total) by mouth daily. [facility] [place] lisinopriL (PRINIVIL,Z ESTRIL) 5 MG tablet 2022-0 9-15 00:00: 00 05-28 00:00 :00 No 5mg QD Take 1 tablet (5 mg total) by mouth daily. [facility] [place] lisinopriL (PRINIVIL,Z ESTRIL) 5 MG tablet 2022-0 9-15 00:00: 00 05-28 00:00 :00 No 5mg QD Take 1 tablet (5 mg total) by mouth daily. [facility] [place] lisinopriL (PRINIVIL,Z ESTRIL) 5 MG tablet 15 00:00: 00 05-28 00:00 :00 No 5mg QD Take 1 tablet (5 mg total) by mouth daily. [facility] [place] lisinopriL (PRINIVIL,Z ESTRIL) 5 MG tablet 15 00:00: 00 05-28 00:00 :00 No 5mg QD Take 1 tablet (5 mg total) by mouth daily. [facility] [place] lisinopriL (PRINIVIL,Z ESTRIL) 5 MG tablet 04-03 00:00: 00 05-28 00:00 :00 No 5mg QD Take 1 tablet (5 mg total) by mouth daily. [facility] [place] lisinopriL (PRINIVIL,Z ESTRIL) 5 MG tablet 04-03 00:00: 00 05-28 00:00 :00 No 5mg QD Take 1 tablet (5 mg total) by mouth daily. [facility] [place] lisinopriL (PRINIVIL,Z ESTRIL) 5 MG tablet 04-03 00:00: 00 05-28 00:00 :00 No 5mg QD Take 1 tablet (5 mg total) by mouth daily. [facility] [place] lisinopriL (PRINIVIL,Z ESTRIL) 5 MG tablet 04-03 00:00: 00 05-28 00:00 :00 No 5mg QD Take 1 tablet (5 mg total) by mouth daily. [facility] [place] lisinopriL (PRINIVIL,Z ESTRIL) 5 MG tablet 04-03 00:00: 00 05-28 00:00 :00 No 5mg QD Take 1 tablet (5 mg total) by mouth daily. [facility] [place] clonazePAM (KlonoPIN) 0.5 MG tablet 15 00:00: 00 05-03 23:59 :00 No .25mg Take 0.5 tablets (0.25 mg total) by mouth 2 (two) times daily as needed for Anxiety for up to 30 days. Max Daily Amount: 0.5 mg [facility] [place] clonazePAM (KlonoPIN) 0.5 MG tablet 15 00:00: 00 05-03 23:59 :00 No .25mg Take 0.5 tablets (0.25 mg total) by mouth 2 (two) times daily as needed for Anxiety for up to 30 days. Max Daily Amount: 0.5 mg [facility] [place]KlonoPIN) 0.5 MG tablet 04-03 00:00: 00 05-03 23:59 :00 No .25mg Take 0.5 tablets (0.25 mg total) by mouth 2 (two) times daily as needed for Anxiety for up to 30 days. Max Daily Amount: 0.5 mg [facility] [place] (KlonoPIN) 0.5 MG tablet 04-03 00:00: 00 05-03 23:59 :00 No .25mg Take 0.5 tablets (0.25 mg total) by mouth 2 (two) times daily as needed for Anxiety for up to 30 days. Max Daily Amount: 0.5 mg [facility] [place] (KlonoPIN) 0.5 MG tablet 04-03 00:00: 00 05-03 23:59 :00 No .25mg Take 0.5 tablets (0.25 mg total) by mouth 2 (two) times daily as needed for Anxiety for up to 30 days. Max Daily Amount: 0.5 mg [facility] [place] (KlonoPIN) 0.5 MG tablet 04-03 00:00: 00 05-03 23:59 :00 No .25mg Take 0.5 tablets (0.25 mg total) by mouth 2 (two) times daily as needed for Anxiety for up to 30 days. Max Daily Amount: 0.5 mg [facility] [place] (KlonoPIN) 0.5 MG tablet 04-03 00:00: 00 05-03 23:59 :00 No .25mg Take 0.5 tablets (0.25 mg total) by mouth 2 (two) times daily as needed for Anxiety for up to 30 days. Max Daily Amount: 0.5 mg [facility] [place] (KlonoPIN) 0.5 MG tablet 0 15 00:00: 00 05-03 23:59 :00 No .25mg Take 0.5 tablets (0.25 mg total) by mouth 2 (two) times daily as needed for Anxiety for up to 30 days. Max Daily Amount: 0.5 mg [facility] [place] (KlonoPIN) 0.5 MG tablet 15 00:00: 00 05-03 23:59 :00 No .25mg Take 0.5 tablets (0.25 mg total) by mouth 2 (two) times daily as needed for Anxiety for up to 30 days. Max Daily Amount: 0.5 mg [facility] [place] (KlonoPIN) 0.5 MG tablet 04-03 00:00: 00 05-03 23:59 :00 No .25mg Take 0.5 tablets (0.25 mg total) by mouth 2 (two) times daily as needed for Anxiety for up to 30 days. Max Daily Amount: 0.5 mg [facility] [place] (KlonoPIN) 0.5 MG tablet 15 00:00: 00 05-03 23:59 :00 No .25mg Take 0.5 tablets (0.25 mg total) by mouth 2 (two) times daily as needed for Anxiety for up to 30 days. Max Daily Amount: 0.5 mg [facility] [place] (KlonoPIN) 0.5 MG tablet 15 00:00: 00 05-03 23:59 :00 No .25mg Take 0.5 tablets (0.25 mg total) by mouth 2 (two) times daily as needed for Anxiety for up to 30 days. Max Daily Amount: 0.5 mg [facility] [place] (KlonoPIN) 0.5 MG tablet 15 00:00: 00 05-03 23:59 :00 No .25mg Take 0.5 tablets (0.25 mg total) by mouth 2 (two) times daily as needed for Anxiety for up to 30 days. Max Daily Amount: 0.5 mg [facility] [place] (KlonoPIN) 0.5 MG tablet 0 15 00:00: 00 05-03 23:59 :00 No .25mg Take 0.5 tablets (0.25 mg total) by mouth 2 (two) times daily as needed for Anxiety for up to 30 days. Max Daily Amount: 0.5 mg [facility] [place] (KlonoPIN) 0.5 MG tablet 15 00:00: 00 05-03 23:59 :00 No .25mg Take 0.5 tablets (0.25 mg total) by mouth 2 (two) times daily as needed for Anxiety for up to 30 days. Max Daily Amount: 0.5 mg [facility] [place] (KlonoPIN) 0.5 MG tablet 04-03 00:00: 00 05-03 23:59 :00 No .25mg Take 0.5 tablets (0.25 mg total) by mouth 2 (two) times daily as needed for Anxiety for up to 30 days. Max Daily Amount: 0.5 mg [facility] [place] (KlonoPIN) 0.5 MG tablet 04-03 00:00: 00 05-03 23:59 :00 No .25mg Take 0.5 tablets (0.25 mg total) by mouth 2 (two) times daily as needed for Anxiety for up to 30 days. Max Daily Amount: 0.5 mg [facility] [place] (KlonoPIN) 0.5 MG tablet 15 00:00: 00 05-03 23:59 :00 No .25mg Take 0.5 tablets (0.25 mg total) by mouth 2 (two) times daily as needed for Anxiety for up to 30 days. Max Daily Amount: 0.5 mg [facility] [place] (KlonoPIN) 0.5 MG tablet 15 00:00: 00 05-03 23:59 :00 No .25mg Take 0.5 tablets (0.25 mg total) by mouth 2 (two) times daily as needed for Anxiety for up to 30 days. Max Daily Amount: 0.5 mg [facility] [place]DRO[place]one -acetaminop hen (NORCO 10-325) 10-325 mg per tablet 04-03 00:00: 00 04-13 23:59 :00 No 1{tbl} Take 1 tablet by mouth every 6 (six) hours as needed for up to 10 days. Max Daily Amount: 4 tablets [facility] [place]ocarbam [place]L (ROBAXIN) 500 MG tablet 04-03 00:00: 00 04-13 23:59 :00 No 500mg Q.25D Take 1 tablet (500 mg total) by mouth 4 (four) times daily for 10 days. [facility] [place]DRO[place]one -acetaminop hen (NORCO 10-325) 10-325 mg per tablet 04-03 00:00: 00 04-13 23:59 :00 No 1{tbl} Take 1 tablet by mouth every 6 (six) hours as needed for up to 10 days. Max Daily Amount: 4 tablets [facility] [place]ocarbam [place] (ROBAXIN) 500 MG tablet 04-03 00:00: 00 04-13 23:59 :00 No 500mg Q.25D Take 1 tablet (500 mg total) by mouth 4 (four) times daily for 10 days. [facility] [place]DRO[place]one -acetaminop hen (NORCO 10-325) 10-325 mg per tablet 04-03 00:00: 00 04-13 23:59 :00 No 1{tbl} Take 1 tablet by mouth every 6 (six) hours as needed for up to 10 days. Max Daily Amount: 4 tablets [facility] [place]ocarbam [place]L (ROBAXIN) 500 MG tablet 04-03 00:00: 00 04-13 23:59 :00 No 500mg Q.25D Take 1 tablet (500 mg total) by mouth 4 (four) times daily for 10 days. [facility] [place]DRO[place]one -acetaminop hen (NORCO 10-325) 10-325 mg per tablet 04-03 00:00: 00 04-13 23:59 :00 No 1{tbl} Take 1 tablet by mouth every 6 (six) hours as needed for up to 10 days. Max Daily Amount: 4 tablets [facility] [place]ocarbam [place]L (ROBAXIN) 500 MG tablet -15 00:00: 00 04-13 23:59 :00 No 500mg Q.25D Take 1 tablet (500 mg total) by mouth 4 (four) times daily for 10 days. [facility] [place]DRO[place]one -acetaminop hen (NORCO 10-325) 10-325 mg per tablet 04-03 00:00: 00 04-13 23:59 :00 No 1{tbl} Take 1 tablet by mouth every 6 (six) hours as needed for up to 10 days. Max Daily Amount: 4 tablets [facility] [place]ocarbam [place]L (ROBAXIN) 500 MG tablet 04-03 00:00: 00 04-13 23:59 :00 No 500mg Q.25D Take 1 tablet (500 mg total) by mouth 4 (four) times daily for 10 days. [facility] [place]DRO[place]one -acetaminop hen (NORCO 10-325) 10-325 mg per tablet 04-03 00:00: 00 04-13 23:59 :00 No 1{tbl} Take 1 tablet by mouth every 6 (six) hours as needed for up to 10 days. Max Daily Amount: 4 tablets [facility] [place]ocarbam [place]L (ROBAXIN) 500 MG tablet 04-03 00:00: 00 04-13 23:59 :00 No 500mg Q.25D Take 1 tablet (500 mg total) by mouth 4 (four) times daily for 10 days. [facility] [place]DRO[place]one -acetaminop hen (NORCO 10-325) 10-325 mg per tablet 15 00:00: 00 04-13 23:59 :00 No 1{tbl} Take 1 tablet by mouth every 6 (six) hours as needed for up to 10 days. Max Daily Amount: 4 tablets [facility] [place]ocarbam [place]L (ROBAXIN) 500 MG tablet 15 00:00: 00 04-13 23:59 :00 No 500mg Q.25D Take 1 tablet (500 mg total) by mouth 4 (four) times daily for 10 days. [facility] [place]DRO[place]one -acetaminop hen (NORCO 10-325) 10-325 mg per tablet 04-03 00:00: 00 04-13 23:59 :00 No 1{tbl} Take 1 tablet by mouth every 6 (six) hours as needed for up to 10 days. Max Daily Amount: 4 tablets [facility] [place]ocarbam [place]L (ROBAXIN) 500 MG tablet 04-03 00:00: 00 04-13 23:59 :00 No 500mg Q.25D Take 1 tablet (500 mg total) by mouth 4 (four) times daily for 10 days. [facility] [place]DRO[place]one -acetaminop hen (NORCO 10-325) 10-325 mg per tablet 04-03 00:00: 00 04-13 23:59 :00 No 1{tbl} Take 1 tablet by mouth every 6 (six) hours as needed for up to 10 days. Max Daily Amount: 4 tablets [facility] [place]ocarbam [place]L (ROBAXIN) 500 MG tablet 04-03 00:00: 00 04-13 23:59 :00 No 500mg Q.25D Take 1 tablet (500 mg total) by mouth 4 (four) times daily for 10 days. [facility] [place]DRO[place]one -acetaminop hen (NORCO 10-325) 10-325 mg per tablet 04-03 00:00: 00 04-13 23:59 :00 No 1{tbl} Take 1 tablet by mouth every 6 (six) hours as needed for up to 10 days. Max Daily Amount: 4 tablets [facility] [place]ocarbam [place]L (ROBAXIN) 500 MG tablet 04-03 00:00: 00 04-13 23:59 :00 No 500mg Q.25D Take 1 tablet (500 mg total) by mouth 4 (four) times daily for 10 days. [facility] [place]DRO[place]one -acetaminop hen (NORCO 10-325) 10-325 mg per tablet 04-03 00:00: 00 04-13 23:59 :00 No 1{tbl} Take 1 tablet by mouth every 6 (six) hours as needed for up to 10 days. Max Daily Amount: 4 tablets [facility] [place]ocarbam [place]L (ROBAXIN) 500 MG tablet 04-03 00:00: 00 04-13 23:59 :00 No 500mg Q.25D Take 1 tablet (500 mg total) by mouth 4 (four) times daily for 10 days. [facility] [place]DRO[place]one -acetaminop hen (NORCO 10-325) 10-325 mg per tablet 04-03 00:00: 00 04-13 23:59 :00 No 1{tbl} Take 1 tablet by mouth every 6 (six) hours as needed for up to 10 days. Max Daily Amount: 4 tablets [facility] [place]ocarbam [place]L (ROBAXIN) 500 MG tablet 04-03 00:00: 00 04-13 23:59 :00 No 500mg Q.25D Take 1 tablet (500 mg total) by mouth 4 (four) times daily for 10 days. [facility] [place]DRO[place]one -acetaminop hen (NORCO 10-325) 10-325 mg per tablet 04-03 00:00: 00 04-13 23:59 :00 No 1{tbl} Take 1 tablet by mouth every 6 (six) hours as needed for up to 10 days. Max Daily Amount: 4 tablets [facility] [place]ocarbam [place]L (ROBAXIN) 500 MG tablet 04-03 00:00: 00 04-13 23:59 :00 No 500mg Q.25D Take 1 tablet (500 mg total) by mouth 4 (four) times daily for 10 days. [facility] [place]DRO[place]one -acetaminop hen (NORCO 10-325) 10-325 mg per tablet 04-03 00:00: 00 04-13 23:59 :00 No 1{tbl} Take 1 tablet by mouth every 6 (six) hours as needed for up to 10 days. Max Daily Amount: 4 tablets [facility] [place]ocarbam oL (ROBAXIN) 500 MG tablet 04-03 00:00: 00 04-13 23:59 :00 No 500mg Q.25D Take 1 tablet (500 mg total) by mouth 4 (four) times daily for 10 days. [facility] [place]DRO[place]one -acetaminop hen (NORCO 10-325) 10-325 mg per tablet 04-03 00:00: 00 04-13 23:59 :00 No 1{tbl} Take 1 tablet by mouth every 6 (six) hours as needed for up to 10 days. Max Daily Amount: 4 tablets [facility] [place]ocarbam [place]L (ROBAXIN) 500 MG tablet 04-03 00:00: 00 04-13 23:59 :00 No 500mg Q.25D Take 1 tablet (500 mg total) by mouth 4 (four) times daily for 10 days. [facility] [place]DRO[place]one -acetaminop hen (NORCO 10-325) 10-325 mg per tablet 04-03 00:00: 00 04-13 23:59 :00 No 1{tbl} Take 1 tablet by mouth every 6 (six) hours as needed for up to 10 days. Max Daily Amount: 4 tablets [facility] [place]ocarbam [place]L (ROBAXIN) 500 MG tablet 04-03 00:00: 00 04-13 23:59 :00 No 500mg Q.25D Take 1 tablet (500 mg total) by mouth 4 (four) times daily for 10 days. [facility] [place]DRO[place]one -acetaminop hen (NORCO 10-325) 10-325 mg per tablet 04-03 00:00: 00 04-13 23:59 :00 No 1{tbl} Take 1 tablet by mouth every 6 (six) hours as needed for up to 10 days. Max Daily Amount: 4 tablets [facility] [place]ocarbam [place]L (ROBAXIN) 500 MG tablet 04-03 00:00: 00 04-13 23:59 :00 No 500mg Q.25D Take 1 tablet (500 mg total) by mouth 4 (four) times daily for 10 days. [facility] [place]DRO[place]one -acetaminop hen (NORCO 10-325) 10-325 mg per tablet 04-03 00:00: 00 04-13 23:59 :00 No 1{tbl} Take 1 tablet by mouth every 6 (six) hours as needed for up to 10 days. Max Daily Amount: 4 tablets [facility] [place] methocarbam oL (ROBAXIN) 500 MG tablet 04-03 00:00: 00 04-13 23:59 :00 No 500mg Q.25D Take 1 tablet (500 mg total) by mouth 4 (four) times daily for 10 days. [facility] [place]DRO[place]one -acetaminop hen (NORCO 10-325) 10-325 mg per tablet 04-03 00:00: 00 04-13 23:59 :00 No 1{tbl} Take 1 tablet by mouth every 6 (six) hours as needed for up to 10 days. Max Daily Amount: 4 tablets [facility] [place]ocarbam [place]L (ROBAXIN) 500 MG tablet 04-03 00:00: 00 04-13 23:59 :00 No 500mg Q.25D Take 1 tablet (500 mg total) by mouth 4 (four) times daily for 10 days. [facility] [place] 81 MG EC tablet 04-03 00:00: 00 04-03 00:00 :00 No 81mg QD Take 1 tablet (81 mg total) by mouth daily for 90 days. [facility] [place] DULox[place] (CYMBALTA) 30 MG capsule 04-03 00:00: 00 04-03 00:00 :00 No 30mg QD Take 1 capsule (30 mg total) by mouth daily. [facility] [place] furo[place]ide (LASIX) 20 MG tablet 04-03 00:00: 00 04-03 00:00 :00 No 20mg QD Take 1 tablet (20 mg total) by mouth daily. [facility] [place] lisinopriL (PRINIVIL,Z ESTRIL) 5 MG tablet 04-03 00:00: 00 04-03 00:00 :00 No 5mg QD Take 1 tablet (5 mg total) by mouth daily. [facility] [place] lisinopriL (PRINIVIL,Z ESTRIL) 5 MG tablet 04-03 00:00: 00 04-03 00:00 :00 No 5mg QD Take 1 tablet (5 mg total) by mouth daily. [facility] [place] 81 MG EC tablet 04-03 00:00: 00 04-03 00:00 :00 No 81mg QD Take 1 tablet (81 mg total) by mouth daily for 90 days. [facility] [place] DULox[place] (CYMBALTA) 30 MG capsule 04-03 00:00: 00 04-03 00:00 :00 No 30mg QD Take 1 capsule (30 mg total) by mouth daily. [facility] [place] furosemide (LASIX) 20 MG tablet 04-03 00:00: 00 04-03 00:00 :00 No 20mg QD Take 1 tablet (20 mg total) by mouth daily. [facility] [place] lisinopriL (PRINIVIL,Z ESTRIL) 5 MG tablet 04-03 00:00: 00 04-03 00:00 :00 No 5mg QD Take 1 tablet (5 mg total) by mouth daily. [facility] [place] 81 MG EC tablet 04-03 00:00: 00 04-03 00:00 :00 No 81mg QD Take 1 tablet (81 mg total) by mouth daily for 90 days. [facility] [place] DULox[place] (CYMBALTA) 30 MG capsule 04-03 00:00: 00 04-03 00:00 :00 No 30mg QD Take 1 capsule (30 mg total) by mouth daily. [facility] [place] furosemide (LASIX) 20 MG tablet 04-03 00:00: 00 04-03 00:00 :00 No 20mg QD Take 1 tablet (20 mg total) by mouth daily. [facility] [place] lisinopriL (PRINIVIL,Z ESTRIL) 5 MG tablet 04-03 00:00: 00 04-03 00:00 :00 No 5mg QD Take 1 tablet (5 mg total) by mouth daily. [facility] [place] 81 MG EC tablet 04-03 00:00: 00 04-03 00:00 :00 No 81mg QD Take 1 tablet (81 mg total) by mouth daily for 90 days. [facility] [place] DULox[place] (CYMBALTA) 30 MG capsule 04-03 00:00: 00 04-03 00:00 :00 No 30mg QD Take 1 capsule (30 mg total) by mouth daily. [facility] [place] furosemide (LASIX) 20 MG tablet 04-03 00:00: 00 04-03 00:00 :00 No 20mg QD Take 1 tablet (20 mg total) by mouth daily. [facility] [place] lisinopriL (PRINIVIL,Z ESTRIL) 5 MG tablet 04-03 00:00: 00 04-03 00:00 :00 No 5mg QD Take 1 tablet (5 mg total) by mouth daily. [facility] [place] 81 MG EC tablet 04-03 00:00: 00 04-03 00:00 :00 No 81mg QD Take 1 tablet (81 mg total) by mouth daily for 90 days. [facility] [place] DULox[place] (CYMBALTA) 30 MG capsule 04-03 00:00: 00 04-03 00:00 :00 No 30mg QD Take 1 capsule (30 mg total) by mouth daily. [facility] [place] furosemide (LASIX) 20 MG tablet 04-03 00:00: 00 04-03 00:00 :00 No 20mg QD Take 1 tablet (20 mg total) by mouth daily. [facility] [place] lisinopriL (PRINIVIL,Z ESTRIL) 5 MG tablet 04-03 00:00: 00 04-03 00:00 :00 No 5mg QD Take 1 tablet (5 mg total) by mouth daily. [facility] [place] 81 MG EC tablet 04-03 00:00: 00 04-03 00:00 :00 No 81mg QD Take 1 tablet (81 mg total) by mouth daily for 90 days. [facility] [place] DULox[place] (CYMBALTA) 30 MG capsule 04-03 00:00: 00 04-03 00:00 :00 No 30mg QD Take 1 capsule (30 mg total) by mouth daily. [facility] [place] furosemide (LASIX) 20 MG tablet 04-03 00:00: 00 04-03 00:00 :00 No 20mg QD Take 1 tablet (20 mg total) by mouth daily. [facility] [place] lisinopriL (PRINIVIL,Z ESTRIL) 5 MG tablet 04-03 00:00: 00 04-03 00:00 :00 No 5mg QD Take 1 tablet (5 mg total) by mouth daily. [facility] [place] 81 MG EC tablet 04-03 00:00: 00 04-03 00:00 :00 No 81mg QD Take 1 tablet (81 mg total) by mouth daily for 90 days. [facility] [place] DULoxetine (CYMBALTA) 30 MG capsule 04-03 00:00: 00 04-03 00:00 :00 No 30mg QD Take 1 capsule (30 mg total) by mouth daily. [facility] [place] furosemide (LASIX) 20 MG tablet 04-03 00:00: 00 04-03 00:00 :00 No 20mg QD Take 1 tablet (20 mg total) by mouth daily. [facility] [place] lisinopriL (PRINIVIL,Z ESTRIL) 5 MG tablet 04-03 00:00: 00 04-03 00:00 :00 No 5mg QD Take 1 tablet (5 mg total) by mouth daily. [facility] [place] 81 MG EC tablet 04-03 00:00: 00 04-03 00:00 :00 No 81mg QD Take 1 tablet (81 mg total) by mouth daily for 90 days. [facility] [place] DULox[place] (CYMBALTA) 30 MG capsule 04-03 00:00: 00 04-03 00:00 :00 No 30mg QD Take 1 capsule (30 mg total) by mouth daily. [facility] [place] furosemide (LASIX) 20 MG tablet 04-03 00:00: 00 04-03 00:00 :00 No 20mg QD Take 1 tablet (20 mg total) by mouth daily. [facility] [place] lisinopriL (PRINIVIL,Z ESTRIL) 5 MG tablet 04-03 00:00: 00 04-03 00:00 :00 No 5mg QD Take 1 tablet (5 mg total) by mouth daily. [facility] [place] 81 MG EC tablet 04-03 00:00: 00 04-03 00:00 :00 No 81mg QD Take 1 tablet (81 mg total) by mouth daily for 90 days. [facility] [place] DULoxetine (CYMBALTA) 30 MG capsule 04-03 00:00: 00 04-03 00:00 :00 No 30mg QD Take 1 capsule (30 mg total) by mouth daily. [facility] [place] furosemide (LASIX) 20 MG tablet 04-03 00:00: 00 04-03 00:00 :00 No 20mg QD Take 1 tablet (20 mg total) by mouth daily. [facility] [place] lisinopriL (PRINIVIL,Z ESTRIL) 5 MG tablet 04-03 00:00: 00 04-03 00:00 :00 No 5mg QD Take 1 tablet (5 mg total) by mouth daily. [facility] [place] 81 MG EC tablet 04-03 00:00: 00 04-03 00:00 :00 No 81mg QD Take 1 tablet (81 mg total) by mouth daily for 90 days. [facility] [place] DULoxetine (CYMBALTA) 30 MG capsule 04-03 00:00: 00 04-03 00:00 :00 No 30mg QD Take 1 capsule (30 mg total) by mouth daily. [facility] [place] furosemide (LASIX) 20 MG tablet 04-03 00:00: 00 04-03 00:00 :00 No 20mg QD Take 1 tablet (20 mg total) by mouth daily. [facility] [place] lisinopriL (PRINIVIL,Z ESTRIL) 5 MG tablet 04-03 00:00: 00 04-03 00:00 :00 No 5mg QD Take 1 tablet (5 mg total) by mouth daily. [facility] [place] 81 MG EC tablet 04-03 00:00: 00 04-03 00:00 :00 No 81mg QD Take 1 tablet (81 mg total) by mouth daily for 90 days. [facility] [place] DULoxetine (CYMBALTA) 30 MG capsule 04-03 00:00: 00 04-03 00:00 :00 No 30mg QD Take 1 capsule (30 mg total) by mouth daily. [facility] [place] furosemide (LASIX) 20 MG tablet 04-03 00:00: 00 04-03 00:00 :00 No 20mg QD Take 1 tablet (20 mg total) by mouth daily. [facility] [place] lisinopriL (PRINIVIL,Z ESTRIL) 5 MG tablet 04-03 00:00: 00 04-03 00:00 :00 No 5mg QD Take 1 tablet (5 mg total) by mouth daily. [facility] [place] 81 MG EC tablet 04-03 00:00: 00 04-03 00:00 :00 No 81mg QD Take 1 tablet (81 mg total) by mouth daily for 90 days. [facility] [place] DULoxetine (CYMBALTA) 30 MG capsule 04-03 00:00: 00 04-03 00:00 :00 No 30mg QD Take 1 capsule (30 mg total) by mouth daily. [facility] [place] furosemide (LASIX) 20 MG tablet 04-03 00:00: 00 04-03 00:00 :00 No 20mg QD Take 1 tablet (20 mg total) by mouth daily. [facility] [place] lisinopriL (PRINIVIL,Z ESTRIL) 5 MG tablet 04-03 00:00: 00 04-03 00:00 :00 No 5mg QD Take 1 tablet (5 mg total) by mouth daily. [facility] [place] 81 MG EC tablet 04-03 00:00: 00 04-03 00:00 :00 No 81mg QD Take 1 tablet (81 mg total) by mouth daily for 90 days. [facility] [place] DULox[place] (CYMBALTA) 30 MG capsule 04-03 00:00: 00 04-03 00:00 :00 No 30mg QD Take 1 capsule (30 mg total) by mouth daily. [facility] [place] furosemide (LASIX) 20 MG tablet 04-03 00:00: 00 04-03 00:00 :00 No 20mg QD Take 1 tablet (20 mg total) by mouth daily. [facility] [place] lisinopriL (PRINIVIL,Z ESTRIL) 5 MG tablet 04-03 00:00: 00 04-03 00:00 :00 No 5mg QD Take 1 tablet (5 mg total) by mouth daily. [facility] [place] 81 MG EC tablet 04-03 00:00: 00 04-03 00:00 :00 No 81mg QD Take 1 tablet (81 mg total) by mouth daily for 90 days. [facility] [place] DULox[place] (CYMBALTA) 30 MG capsule 04-03 00:00: 00 04-03 00:00 :00 No 30mg QD Take 1 capsule (30 mg total) by mouth daily. [facility] [place] furosemide (LASIX) 20 MG tablet 04-03 00:00: 00 04-03 00:00 :00 No 20mg QD Take 1 tablet (20 mg total) by mouth daily. [facility] [place] lisinopriL (PRINIVIL,Z ESTRIL) 5 MG tablet 04-03 00:00: 00 04-03 00:00 :00 No 5mg QD Take 1 tablet (5 mg total) by mouth daily. [facility] [place] 81 MG EC tablet 04-03 00:00: 00 04-03 00:00 :00 No 81mg QD Take 1 tablet (81 mg total) by mouth daily for 90 days. [facility] [place] DULox[place] (CYMBALTA) 30 MG capsule 04-03 00:00: 00 04-03 00:00 :00 No 30mg QD Take 1 capsule (30 mg total) by mouth daily. [facility] [place] furosemide (LASIX) 20 MG tablet 04-03 00:00: 00 04-03 00:00 :00 No 20mg QD Take 1 tablet (20 mg total) by mouth daily. [facility] [place] lisinopriL (PRINIVIL,Z ESTRIL) 5 MG tablet 04-03 00:00: 00 04-03 00:00 :00 No 5mg QD Take 1 tablet (5 mg total) by mouth daily. [facility] [place] 81 MG EC tablet 04-03 00:00: 00 04-03 00:00 :00 No 81mg QD Take 1 tablet (81 mg total) by mouth daily for 90 days. [facility] [place] DULox[place] (CYMBALTA) 30 MG capsule 04-03 00:00: 00 04-03 00:00 :00 No 30mg QD Take 1 capsule (30 mg total) by mouth daily. [facility] [place] furosemide (LASIX) 20 MG tablet 04-03 00:00: 00 04-03 00:00 :00 No 20mg QD Take 1 tablet (20 mg total) by mouth daily. [facility] [place] lisinopriL (PRINIVIL,Z ESTRIL) 5 MG tablet 04-03 00:00: 00 04-03 00:00 :00 No 5mg QD Take 1 tablet (5 mg total) by mouth daily. [facility] [place] 81 MG EC tablet 04-03 00:00: 00 04-03 00:00 :00 No 81mg QD Take 1 tablet (81 mg total) by mouth daily for 90 days. [facility] [place] DULox[place] (CYMBALTA) 30 MG capsule 04-03 00:00: 00 04-03 00:00 :00 No 30mg QD Take 1 capsule (30 mg total) by mouth daily. [facility] [place] [place] 20 MG tablet 04-03 00:00: 00 04-03 00:00 :00 No 20mg QD Take 1 tablet (20 mg total) by mouth daily. [facility] [place] (PRINIVIL,Z ESTRIL) 5 MG tablet 04-03 00:00: 00 04-03 00:00 :00 No 5mg QD Take 1 tablet (5 mg total) by mouth daily. [facility] [place] 81 MG EC tablet 04-03 00:00: 00 04-03 00:00 :00 No 81mg QD Take 1 tablet (81 mg total) by mouth daily for 90 days. [facility] [place]ULox[place] (CYMBALTA) 30 MG capsule 04-03 00:00: 00 04-03 00:00 :00 No 30mg QD Take 1 capsule (30 mg total) by mouth daily. [facility] [place]LASIX) 20 MG tablet 04-03 00:00: 00 04-03 00:00 :00 No 20mg QD Take 1 tablet (20 mg total) by mouth daily. [facility] [place]op[place] (PRINIVIL,Z ESTRIL) 5 MG tablet 04-03 00:00: 00 04-03 00:00 :00 No 5mg QD Take 1 tablet (5 mg total) by mouth daily. [facility] [place] 81 MG EC tablet 04-03 00:00: 00 04-03 00:00 :00 No 81mg QD Take 1 tablet (81 mg total) by mouth daily for 90 days. [facility] [place]ULox[place] (CYMBALTA) 30 MG capsule 04-03 00:00: 00 04-03 00:00 :00 No 30mg QD Take 1 capsule (30 mg total) by mouth daily. [facility] [place]LASIX) 20 MG tablet 04-03 00:00: 00 04-03 00:00 :00 No 20mg QD Take 1 tablet (20 mg total) by mouth daily. [facility] [place] (NEURONTIN) 300 MG capsule 04-02 00:00: 00 04-03 00:00 :00 No 300mg Q.[id number] 3D Take 1 capsule (300 mg total) by mouth 3 (three) times daily for 90 days. [facility] [place] divalproex (DEPAKOTE) 500 MG EC tablet 04-02 00:00: 00 04-03 00:00 :00 No 500mg Q.5D Take 1 tablet (500 mg total) by mouth 2 (two) times daily for 90 days. [facility] [place] clonazePAM (KlonoPIN) 0.5 MG tablet 04-02 00:00: 00 04-03 00:00 :00 No .25mg Take 0.5 tablets (0.25 mg total) by mouth 2 (two) times daily as needed for Anxiety for up to 30 days. Max Daily Amount: 0.5 mg [facility] [place]abap[place] (NEURONTIN) 300 MG capsule 04-02 00:00: 00 04-03 00:00 :00 No 300mg Q.[id number] 3D Take 1 capsule (300 mg total) by mouth 3 (three) times daily for 90 days. [facility] [place]DRO[place]one -acetaminop hen (NORCO 10-325) 10-325 mg per tablet 04-02 00:00: 00 04-03 00:00 :00 No 1{tbl} Take 1 tablet by mouth every 6 (six) hours as needed for up to 10 days. Max Daily Amount: 4 tablets [facility] [place]DRO[place]one -acetaminop hen (NORCO 10-325) 10-325 mg per tablet 04-02 00:00: 00 04-03 00:00 :00 No 1{tbl} Take 1 tablet by mouth every 6 (six) hours as needed for up to 10 days. Max Daily Amount: 4 tablets [facility] [place] methocarbam oL (ROBAXIN) 500 MG tablet 04-02 00:00: 00 04-03 00:00 :00 No 500mg Q.25D Take 1 tablet (500 mg total) by mouth 4 (four) times daily for 10 days. [facility] [place] methocarbam oL (ROBAXIN) 500 MG tablet 04-02 00:00: 00 04-03 00:00 :00 No 500mg Q.25D Take 1 tablet (500 mg total) by mouth 4 (four) times daily for 10 days. [facility] [place] divalproex (DEPAKOTE) 500 MG EC tablet 04-02 00:00: 00 04-03 00:00 :00 No 500mg Q.5D Take 1 tablet (500 mg total) by mouth 2 (two) times daily for 90 days. [facility] [place] clonazePAM (KlonoPIN) 0.5 MG tablet 04-02 00:00: 00 04-03 00:00 :00 No .25mg Take 0.5 tablets (0.25 mg total) by mouth 2 (two) times daily as needed for Anxiety for up to 30 days. Max Daily Amount: 0.5 mg [facility] [place] gabap[place] (NEURONTIN) 300 MG capsule 04-02 00:00: 00 04-03 00:00 :00 No 300mg Q.[id number] 3D Take 1 capsule (300 mg total) by mouth 3 (three) times daily for 90 days. [facility] [place]DRO[place]one -acetaminop hen (NORCO 10-325) 10-325 mg per tablet 04-02 00:00: 00 04-03 00:00 :00 No 1{tbl} Take 1 tablet by mouth every 6 (six) hours as needed for up to 10 days. Max Daily Amount: 4 tablets [facility] [place] methocarbam oL (ROBAXIN) 500 MG tablet 04-02 00:00: 00 04-03 00:00 :00 No 500mg Q.25D Take 1 tablet (500 mg total) by mouth 4 (four) times daily for 10 days. [facility] [place] divalproex (DEPAKOTE) 500 MG EC tablet 04-02 00:00: 00 04-03 00:00 :00 No 500mg Q.5D Take 1 tablet (500 mg total) by mouth 2 (two) times daily for 90 days. [facility] [place] clonazePAM (KlonoPIN) 0.5 MG tablet 04-02 00:00: 00 04-03 00:00 :00 No .25mg Take 0.5 tablets (0.25 mg total) by mouth 2 (two) times daily as needed for Anxiety for up to 30 days. Max Daily Amount: 0.5 mg [facility] [place] gabap[place] (NEURONTIN) 300 MG capsule 04-02 00:00: 00 04-03 00:00 :00 No 300mg Q.[id number] 3D Take 1 capsule (300 mg total) by mouth 3 (three) times daily for 90 days. [facility] [place]DRO[place]one -acetaminop hen (NORCO 10-325) 10-325 mg per tablet 04-02 00:00: 00 04-03 00:00 :00 No 1{tbl} Take 1 tablet by mouth every 6 (six) hours as needed for up to 10 days. Max Daily Amount: 4 tablets [facility] [place] methocarbam oL (ROBAXIN) 500 MG tablet 04-02 00:00: 00 04-03 00:00 :00 No 500mg Q.25D Take 1 tablet (500 mg total) by mouth 4 (four) times daily for 10 days. [facility] [place] divalproex (DEPAKOTE) 500 MG EC tablet 04-02 00:00: 00 04-03 00:00 :00 No 500mg Q.5D Take 1 tablet (500 mg total) by mouth 2 (two) times daily for 90 days. [facility] [place] clonazePAM (KlonoPIN) 0.5 MG tablet 04-02 00:00: 00 04-03 00:00 :00 No .25mg Take 0.5 tablets (0.25 mg total) by mouth 2 (two) times daily as needed for Anxiety for up to 30 days. Max Daily Amount: 0.5 mg [facility] [place] gabap[place] (NEURONTIN) 300 MG capsule 04-02 00:00: 00 04-03 00:00 :00 No 300mg Q.[id number] 3D Take 1 capsule (300 mg total) by mouth 3 (three) times daily for 90 days. [facility] [place]DRO[place]one -acetaminop hen (NORCO 10-325) 10-325 mg per tablet 04-02 00:00: 00 04-03 00:00 :00 No 1{tbl} Take 1 tablet by mouth every 6 (six) hours as needed for up to 10 days. Max Daily Amount: 4 tablets [facility] [place] methocarbam oL (ROBAXIN) 500 MG tablet 04-02 00:00: 00 04-03 00:00 :00 No 500mg Q.25D Take 1 tablet (500 mg total) by mouth 4 (four) times daily for 10 days. [facility] [place] divalproex (DEPAKOTE) 500 MG EC tablet 04-02 00:00: 00 04-03 00:00 :00 No 500mg Q.5D Take 1 tablet (500 mg total) by mouth 2 (two) times daily for 90 days. [facility] [place] clonazePAM (KlonoPIN) 0.5 MG tablet 04-02 00:00: 00 04-03 00:00 :00 No .25mg Take 0.5 tablets (0.25 mg total) by mouth 2 (two) times daily as needed for Anxiety for up to 30 days. Max Daily Amount: 0.5 mg [facility] [place] gabap[place] (NEURONTIN) 300 MG capsule 04-02 00:00: 00 04-03 00:00 :00 No 300mg Q.[id number] 3D Take 1 capsule (300 mg total) by mouth 3 (three) times daily for 90 days. [facility] [place]DRO[place]one -acetaminop hen (NORCO 10-325) 10-325 mg per tablet 04-02 00:00: 00 04-03 00:00 :00 No 1{tbl} Take 1 tablet by mouth every 6 (six) hours as needed for up to 10 days. Max Daily Amount: 4 tablets [facility] [place] methocarbam oL (ROBAXIN) 500 MG tablet 04-02 00:00: 00 04-03 00:00 :00 No 500mg Q.25D Take 1 tablet (500 mg total) by mouth 4 (four) times daily for 10 days. [facility] [place] divalproex (DEPAKOTE) 500 MG EC tablet 04-02 00:00: 00 04-03 00:00 :00 No 500mg Q.5D Take 1 tablet (500 mg total) by mouth 2 (two) times daily for 90 days. [facility] [place] clonazePAM (KlonoPIN) 0.5 MG tablet 04-02 00:00: 00 04-03 00:00 :00 No .25mg Take 0.5 tablets (0.25 mg total) by mouth 2 (two) times daily as needed for Anxiety for up to 30 days. Max Daily Amount: 0.5 mg [facility] [place] gabapentin (NEURONTIN) 300 MG capsule 04-02 00:00: 00 04-03 00:00 :00 No 300mg Q.[id number] 3D Take 1 capsule (300 mg total) by mouth 3 (three) times daily for 90 days. [facility] [place]DRO[place]one -acetaminop hen (NORCO 10-325) 10-325 mg per tablet 04-02 00:00: 00 04-03 00:00 :00 No 1{tbl} Take 1 tablet by mouth every 6 (six) hours as needed for up to 10 days. Max Daily Amount: 4 tablets [facility] [place] methocarbam oL (ROBAXIN) 500 MG tablet 04-02 00:00: 00 04-03 00:00 :00 No 500mg Q.25D Take 1 tablet (500 mg total) by mouth 4 (four) times daily for 10 days. [facility] [place] divalproex (DEPAKOTE) 500 MG EC tablet 04-02 00:00: 00 04-03 00:00 :00 No 500mg Q.5D Take 1 tablet (500 mg total) by mouth 2 (two) times daily for 90 days. [facility] [place] clonazePAM (KlonoPIN) 0.5 MG tablet 04-02 00:00: 00 04-03 00:00 :00 No .25mg Take 0.5 tablets (0.25 mg total) by mouth 2 (two) times daily as needed for Anxiety for up to 30 days. Max Daily Amount: 0.5 mg [facility] [place] gabap[place] (NEURONTIN) 300 MG capsule 04-02 00:00: 00 04-03 00:00 :00 No 300mg Q.[id number] 3D Take 1 capsule (300 mg total) by mouth 3 (three) times daily for 90 days. [facility] [place]DRO[place]one -acetaminop hen (NORCO 10-325) 10-325 mg per tablet 04-02 00:00: 00 04-03 00:00 :00 No 1{tbl} Take 1 tablet by mouth every 6 (six) hours as needed for up to 10 days. Max Daily Amount: 4 tablets [facility] [place] methocarbam oL (ROBAXIN) 500 MG tablet 04-02 00:00: 00 04-03 00:00 :00 No 500mg Q.25D Take 1 tablet (500 mg total) by mouth 4 (four) times daily for 10 days. [facility] [place] divalproex (DEPAKOTE) 500 MG EC tablet 04-02 00:00: 00 04-03 00:00 :00 No 500mg Q.5D Take 1 tablet (500 mg total) by mouth 2 (two) times daily for 90 days. [facility] [place] clonazePAM (KlonoPIN) 0.5 MG tablet 04-02 00:00: 00 04-03 00:00 :00 No .25mg Take 0.5 tablets (0.25 mg total) by mouth 2 (two) times daily as needed for Anxiety for up to 30 days. Max Daily Amount: 0.5 mg [facility] [place] gabap[place] (NEURONTIN) 300 MG capsule 04-02 00:00: 00 04-03 00:00 :00 No 300mg Q.[id number] 3D Take 1 capsule (300 mg total) by mouth 3 (three) times daily for 90 days. [facility] [place]DRO[place]one -acetaminop hen (NORCO 10-325) 10-325 mg per tablet 04-02 00:00: 00 04-03 00:00 :00 No 1{tbl} Take 1 tablet by mouth every 6 (six) hours as needed for up to 10 days. Max Daily Amount: 4 tablets [facility] [place] methocarbam oL (ROBAXIN) 500 MG tablet 04-02 00:00: 00 04-03 00:00 :00 No 500mg Q.25D Take 1 tablet (500 mg total) by mouth 4 (four) times daily for 10 days. [facility] [place] divalproex (DEPAKOTE) 500 MG EC tablet 04-02 00:00: 00 04-03 00:00 :00 No 500mg Q.5D Take 1 tablet (500 mg total) by mouth 2 (two) times daily for 90 days. [facility] [place] clonazePAM (KlonoPIN) 0.5 MG tablet 04-02 00:00: 00 04-03 00:00 :00 No .25mg Take 0.5 tablets (0.25 mg total) by mouth 2 (two) times daily as needed for Anxiety for up to 30 days. Max Daily Amount: 0.5 mg [facility] [place] gabap[place] (NEURONTIN) 300 MG capsule 04-02 00:00: 00 04-03 00:00 :00 No 300mg Q.[id number] 3D Take 1 capsule (300 mg total) by mouth 3 (three) times daily for 90 days. [facility] [place]DRO[place]one -acetaminop hen (NORCO 10-325) 10-325 mg per tablet 04-02 00:00: 00 04-03 00:00 :00 No 1{tbl} Take 1 tablet by mouth every 6 (six) hours as needed for up to 10 days. Max Daily Amount: 4 tablets [facility] [place] methocarbam oL (ROBAXIN) 500 MG tablet 04-02 00:00: 00 04-03 00:00 :00 No 500mg Q.25D Take 1 tablet (500 mg total) by mouth 4 (four) times daily for 10 days. [facility] [place] divalproex (DEPAKOTE) 500 MG EC tablet 04-02 00:00: 00 04-03 00:00 :00 No 500mg Q.5D Take 1 tablet (500 mg total) by mouth 2 (two) times daily for 90 days. [facility] [place] clonazePAM (KlonoPIN) 0.5 MG tablet 04-02 00:00: 00 04-03 00:00 :00 No .25mg Take 0.5 tablets (0.25 mg total) by mouth 2 (two) times daily as needed for Anxiety for up to 30 days. Max Daily Amount: 0.5 mg [facility] [place] gabap[place] (NEURONTIN) 300 MG capsule 04-02 00:00: 00 04-03 00:00 :00 No 300mg Q.[id number] 3D Take 1 capsule (300 mg total) by mouth 3 (three) times daily for 90 days. [facility] [place]DRO[place]one -acetaminop hen (NORCO 10-325) 10-325 mg per tablet 04-02 00:00: 00 04-03 00:00 :00 No 1{tbl} Take 1 tablet by mouth every 6 (six) hours as needed for up to 10 days. Max Daily Amount: 4 tablets [facility] [place] methocarbam oL (ROBAXIN) 500 MG tablet 04-02 00:00: 00 04-03 00:00 :00 No 500mg Q.25D Take 1 tablet (500 mg total) by mouth 4 (four) times daily for 10 days. [facility] [place] divalproex (DEPAKOTE) 500 MG EC tablet 04-02 00:00: 00 04-03 00:00 :00 No 500mg Q.5D Take 1 tablet (500 mg total) by mouth 2 (two) times daily for 90 days. [facility] [place] clonazePAM (KlonoPIN) 0.5 MG tablet 04-02 00:00: 00 04-03 00:00 :00 No .25mg Take 0.5 tablets (0.25 mg total) by mouth 2 (two) times daily as needed for Anxiety for up to 30 days. Max Daily Amount: 0.5 mg [facility] [place] gabap[place] (NEURONTIN) 300 MG capsule 04-02 00:00: 00 04-03 00:00 :00 No 300mg Q.[id number] 3D Take 1 capsule (300 mg total) by mouth 3 (three) times daily for 90 days. [facility] [place]DRO[place]one -acetaminop hen (NORCO 10-325) 10-325 mg per tablet 04-02 00:00: 00 04-03 00:00 :00 No 1{tbl} Take 1 tablet by mouth every 6 (six) hours as needed for up to 10 days. Max Daily Amount: 4 tablets [facility] [place] methocarbam oL (ROBAXIN) 500 MG tablet 04-02 00:00: 00 04-03 00:00 :00 No 500mg Q.25D Take 1 tablet (500 mg total) by mouth 4 (four) times daily for 10 days. [facility] [place] divalproex (DEPAKOTE) 500 MG EC tablet 04-02 00:00: 00 04-03 00:00 :00 No 500mg Q.5D Take 1 tablet (500 mg total) by mouth 2 (two) times daily for 90 days. [facility] [place] clonazePAM (KlonoPIN) 0.5 MG tablet 04-02 00:00: 00 04-03 00:00 :00 No .25mg Take 0.5 tablets (0.25 mg total) by mouth 2 (two) times daily as needed for Anxiety for up to 30 days. Max Daily Amount: 0.5 mg [facility] [place] gabap[place] (NEURONTIN) 300 MG capsule 04-02 00:00: 00 04-03 00:00 :00 No 300mg Q.[id number] 3D Take 1 capsule (300 mg total) by mouth 3 (three) times daily for 90 days. [facility] [place]DRO[place]one -acetaminop hen (NORCO 10-325) 10-325 mg per tablet 04-02 00:00: 00 04-03 00:00 :00 No 1{tbl} Take 1 tablet by mouth every 6 (six) hours as needed for up to 10 days. Max Daily Amount: 4 tablets [facility] [place] methocarbam oL (ROBAXIN) 500 MG tablet 04-02 00:00: 00 04-03 00:00 :00 No 500mg Q.25D Take 1 tablet (500 mg total) by mouth 4 (four) times daily for 10 days. [facility] [place] divalproex (DEPAKOTE) 500 MG EC tablet 04-02 00:00: 00 04-03 00:00 :00 No 500mg Q.5D Take 1 tablet (500 mg total) by mouth 2 (two) times daily for 90 days. [facility] [place] clonazePAM (KlonoPIN) 0.5 MG tablet 04-02 00:00: 00 04-03 00:00 :00 No .25mg Take 0.5 tablets (0.25 mg total) by mouth 2 (two) times daily as needed for Anxiety for up to 30 days. Max Daily Amount: 0.5 mg [facility] [place] gabap[place] (NEURONTIN) 300 MG capsule 04-02 00:00: 00 04-03 00:00 :00 No 300mg Q.[id number] 3D Take 1 capsule (300 mg total) by mouth 3 (three) times daily for 90 days. [facility] [place]DRO[place]one -acetaminop hen (NORCO 10-325) 10-325 mg per tablet 04-02 00:00: 00 04-03 00:00 :00 No 1{tbl} Take 1 tablet by mouth every 6 (six) hours as needed for up to 10 days. Max Daily Amount: 4 tablets [facility] [place] methocarbam oL (ROBAXIN) 500 MG tablet 04-02 00:00: 00 04-03 00:00 :00 No 500mg Q.25D Take 1 tablet (500 mg total) by mouth 4 (four) times daily for 10 days. [facility] [place] divalproex (DEPAKOTE) 500 MG EC tablet 04-02 00:00: 00 04-03 00:00 :00 No 500mg Q.5D Take 1 tablet (500 mg total) by mouth 2 (two) times daily for 90 days. [facility] [place] clonazePAM (KlonoPIN) 0.5 MG tablet 04-02 00:00: 00 04-03 00:00 :00 No .25mg Take 0.5 tablets (0.25 mg total) by mouth 2 (two) times daily as needed for Anxiety for up to 30 days. Max Daily Amount: 0.5 mg [facility] [place] gabap[place] (NEURONTIN) 300 MG capsule 04-02 00:00: 00 04-03 00:00 :00 No 300mg Q.[id number] 3D Take 1 capsule (300 mg total) by mouth 3 (three) times daily for 90 days. [facility] [place]DRO[place]one -acetaminop hen (NORCO 10-325) 10-325 mg per tablet 04-02 00:00: 00 04-03 00:00 :00 No 1{tbl} Take 1 tablet by mouth every 6 (six) hours as needed for up to 10 days. Max Daily Amount: 4 tablets [facility] [place] methocarbam oL (ROBAXIN) 500 MG tablet 04-02 00:00: 00 04-03 00:00 :00 No 500mg Q.25D Take 1 tablet (500 mg total) by mouth 4 (four) times daily for 10 days. [facility] [place] divalproex (DEPAKOTE) 500 MG EC tablet 04-02 00:00: 00 04-03 00:00 :00 No 500mg Q.5D Take 1 tablet (500 mg total) by mouth 2 (two) times daily for 90 days. [facility] [place] clonazePAM (KlonoPIN) 0.5 MG tablet 04-02 00:00: 00 04-03 00:00 :00 No .25mg Take 0.5 tablets (0.25 mg total) by mouth 2 (two) times daily as needed for Anxiety for up to 30 days. Max Daily Amount: 0.5 mg [facility] [place] gabap[place] (NEURONTIN) 300 MG capsule 04-02 00:00: 00 04-03 00:00 :00 No 300mg Q.[id number] 3D Take 1 capsule (300 mg total) by mouth 3 (three) times daily for 90 days. [facility] [place]DRO[place]one -acetaminop hen (NORCO 10-325) 10-325 mg per tablet 04-02 00:00: 00 04-03 00:00 :00 No 1{tbl} Take 1 tablet by mouth every 6 (six) hours as needed for up to 10 days. Max Daily Amount: 4 tablets [facility] [place] methocarbam oL (ROBAXIN) 500 MG tablet 04-02 00:00: 00 04-03 00:00 :00 No 500mg Q.25D Take 1 tablet (500 mg total) by mouth 4 (four) times daily for 10 days. [facility] [place] divalproex (DEPAKOTE) 500 MG EC tablet 04-02 00:00: 00 04-03 00:00 :00 No 500mg Q.5D Take 1 tablet (500 mg total) by mouth 2 (two) times daily for 90 days. [facility] [place] clonazePAM (KlonoPIN) 0.5 MG tablet 04-02 00:00: 00 04-03 00:00 :00 No .25mg Take 0.5 tablets (0.25 mg total) by mouth 2 (two) times daily as needed for Anxiety for up to 30 days. Max Daily Amount: 0.5 mg [facility] [place] gabap[place] (NEURONTIN) 300 MG capsule 04-02 00:00: 00 04-03 00:00 :00 No 300mg Q.[id number] 3D Take 1 capsule (300 mg total) by mouth 3 (three) times daily for 90 days. [facility] [place]DRO[place]one -acetaminop hen (NORCO 10-325) 10-325 mg per tablet 04-02 00:00: 00 04-03 00:00 :00 No 1{tbl} Take 1 tablet by mouth every 6 (six) hours as needed for up to 10 days. Max Daily Amount: 4 tablets [facility] [place] methocarbam oL (ROBAXIN) 500 MG tablet 04-02 00:00: 00 04-03 00:00 :00 No 500mg Q.25D Take 1 tablet (500 mg total) by mouth 4 (four) times daily for 10 days. [facility] [place] divalproex (DEPAKOTE) 500 MG EC tablet 04-02 00:00: 00 04-03 00:00 :00 No 500mg Q.5D Take 1 tablet (500 mg total) by mouth 2 (two) times daily for 90 days. [facility] [place] clonazePAM (KlonoPIN) 0.5 MG tablet 04-02 00:00: 00 04-03 00:00 :00 No .25mg Take 0.5 tablets (0.25 mg total) by mouth 2 (two) times daily as needed for Anxiety for up to 30 days. Max Daily Amount: 0.5 mg [facility] [place] gabap[place] (NEURONTIN) 300 MG capsule 04-02 00:00: 00 04-03 00:00 :00 No 300mg Q.[id number] 3D Take 1 capsule (300 mg total) by mouth 3 (three) times daily for 90 days. [facility] [place]DRO[place]one -acetaminop hen (NORCO 10-325) 10-325 mg per tablet 04-02 00:00: 00 04-03 00:00 :00 No 1{tbl} Take 1 tablet by mouth every 6 (six) hours as needed for up to 10 days. Max Daily Amount: 4 tablets [facility] [place] methocarbam oL (ROBAXIN) 500 MG tablet 04-02 00:00: 00 04-03 00:00 :00 No 500mg Q.25D Take 1 tablet (500 mg total) by mouth 4 (four) times daily for 10 days. [facility] [place] divalproex (DEPAKOTE) 500 MG EC tablet 04-02 00:00: 00 04-03 00:00 :00 No 500mg Q.5D Take 1 tablet (500 mg total) by mouth 2 (two) times daily for 90 days. [facility] [place] clonazePAM (KlonoPIN) 0.5 MG tablet 04-02 00:00: 00 04-03 00:00 :00 No .25mg Take 0.5 tablets (0.25 mg total) by mouth 2 (two) times daily as needed for Anxiety for up to 30 days. Max Daily Amount: 0.5 mg [facility] [place] gabap[place] (NEURONTIN) 300 MG capsule 04-02 00:00: 00 04-03 00:00 :00 No 300mg Q.[id number] 3D Take 1 capsule (300 mg total) by mouth 3 (three) times daily for 90 days. [facility] [place]DRO[place]one -acetaminop hen (NORCO 10-325) 10-325 mg per tablet 04-02 00:00: 00 04-03 00:00 :00 No 1{tbl} Take 1 tablet by mouth every 6 (six) hours as needed for up to 10 days. Max Daily Amount: 4 tablets [facility] [place] methocarbam [place]L (ROBAXIN) 500 MG tablet 04-02 00:00: 00 04-03 00:00 :00 No 500mg Q.25D Take 1 tablet (500 mg total) by mouth 4 (four) times daily for 10 days. [facility] [place] divalproex (DEPAKOTE) 500 MG EC tablet 04-02 00:00: 00 04-03 00:00 :00 No 500mg Q.5D Take 1 tablet (500 mg total) by mouth 2 (two) times daily for 90 days. [facility] [place] clonazePAM (KlonoPIN) 0.5 MG tablet 04-02 00:00: 00 04-03 00:00 :00 No .25mg Take 0.5 tablets (0.25 mg total) by mouth 2 (two) times daily as needed for Anxiety for up to 30 days. Max Daily Amount: 0.5 mg [facility] lacosamide (VIMPAT) 200 mg in NaCl 0.9% (NS) 50 mL piggyback 12-11 19:45: 00 12-11 19:57 :00 No 200mg 200 mg, IV Piggyback, ONCE, 1 dose, On Thu12/11/22 at 1445, Administer over 30 Minutes, 50 mL
Facu lty member approving Restricted medication : Alfonso ALVARADO [facility] ketorolac (TORADOL) injection 15 mg 12-11 18:15: 00 12-11 17:25 :00 No 15mg 15 mg, Slow IV Push, ONCE, 1 dose, On Thu12/11/22 at 1315, [facility] iopamidol (ISOVUE 370-500 mL) injection 80 mL 12-11 16:30: 12-11 16:27 :00 No [id number] 80mL 80 mL, Intravenou s, ONCE, 1 dose, On Thu12/11/22 at 1130, Routine [facility] nitroglycer in (NITROL) 2 % ointment 0.5 Inch 12-11 15:30: 00 12-11 14:31 :00 No .5[in_u s] 0.5 Inch, Transderma l (Apply To Skin), ONCE, 1 dose, [facility] Thu12/11/22 at 1030[facility] mg 12-11 15:30: 00 12-11 14:30 :00 No 324mg 324 mg, Oral, ONCE, 1 dose, On Thu12/11/22 at 1030, Routine [facility] ondansetron (ZOFRAN (PF)) injection 4 mg 12-11 15:30: 00 12-11 14:29 :00 No 4mg 4 mg, Slow IV Push, ONCE, 1 dose, On Thu12/11/22 at 1030, [facility] LORazepam (ATIVAN) injection 1 mg 12-11 15:00: 00 12-11 14:57 :00 No 1mg 1 mg, Slow IV Push, ONCE, 1 dose, On Thu12/11/22 at 1000, STAT [facility] Lacosamide (VIMPAT) 100 mg tablet 12-11 00:00: 00 Yes [id number] 100mg Take 1 tablet by mouth in the morning and 1 tablet in the evening. [facility] acetaminoph en-codeine (TYLENOL #3) 300-30 mg tablet 1 tablet 11-18 05:30: 00 11-18 05:30 :00 No 1{tbl} 1 tablet, Oral, ONCE, 1 dose, On Thu11/18/22 at 0030, [facility] methocarbam oL (ROBAXIN) tablet 1,000 mg 11-18 05:30: 00 11-18 05:30 :00 No 1000mg 1,000 mg, Oral, ONCE, 1 dose, On Thu11/18/22 at 0030, [facility] ondansetron (ZOFRAN (PF)) injection 4 mg 11-18 04:45: 00 11-18 03:38 :00 No 4mg 4 mg, Slow IV Push, ONCE, 1 dose, On Thu11/17/22 at 2345, [facility] morpHINE (4 mg/mL) injection 4 mg 11-18 03:45: 00 11-18 03:38 :00 No 4mg 4 mg, Slow IV Push, ONCE, 1 dose, On Thu11/17/22 at 2245, Routine [facility] methocarbam oL (ROBAXIN) injection 1,000 mg 11-18 00:30: 00 11-17 23:47 :00 No 1000mg 1,000 mg, Intravenou s, ONCE, 1 dose, On Thu11/17/22 at 1930, MICHAEL [facility] methocarbam oL 500 mg tablet 11-18 00:00: 00 Yes [id number] 1000mg Take 2 tablets by mouth 4 (four) times daily as needed for Pain (scale 7-10). [facility] methocarbam oL 500 mg tablet 11-18 00:00: 00 Yes [id number] 1000mg Take 2 tablets by mouth 4 (four) times daily as needed for Pain (scale 7-10). [facility] acetaminoph en-codeine 300-60 mg tablet 11-18 00:00: 00 11-26 04:59 :00 No [id number] 1{tbl} Take 1 tablet by mouth every 6 (six) hours as needed for Pain for up to 7 days. Indication s: acute pain [facility] ketorolac (TORADOL) injection 15 mg 11-18 00:00: 00 11-17 23:08 :00 No 15mg 15 mg, Slow IV Push, ONCE, 1 dose, On Thu11/17/22 at 1900, Routine [facility] morpHINE (4 mg/mL) injection 4 mg 11-17 23:45: 00 11-17 23:49 :00 No 4mg 4 mg, Slow IV Push, ONCE, 1 dose, On Thu11/17/22 at 1845, Routine [facility] ondansetron (ZOFRAN (PF)) injection 4 mg 11-17 23:15: 00 11-17 23:06 :00 No 4mg 4 mg, Slow IV Push, ONCE, 1 dose, On Thu11/17/22 at 1815, MICHAEL [facility] lisinopriL (PRINIVIL,Z ESTRIL) tablet 10 mg 08-02 15:00: 00 Yes 10mg 10 mg, Oral, DAILY, First dose on Thu08/02/22 at 0900, Until Discontinu ed, Routine [facility] predniSONE (DELTASONE) tablet 40 mg 08-02 15:00: 00 08-07 14:59 :00 No 40mg 40 mg, Oral, DAILY, 5 doses, First dose on Thu08/02/22 at 0900, Last dose on Thu08/06/22 at 0900, Routine [facility] morpHINE (2 mg/mL) injection 2 mg 08-02 03:29: 15 Yes 2mg 2 mg, Slow IV Push, Q4HPRN, Starting on Thu08/01/22 at 2129, Until Discontinu ed, Routine, Pain (scale 7-10) [facility] levETIRAcet am (KEPPRA) in NACL (ISO-OS) 1,000 mg/100 mL RTU 08-02 00:00: 00 Yes 1000mg 1,000 mg, IV Piggyback, Q12H, First dose on Thu08/01/22 at 1800, Until Discontinu ed, Administer over 15 Minutes, 100 mL [facility] MULTIVITAMI N ORAL 08-01 23:49: 34 Yes 1{tbl} Take 1 Tab by mouth daily. [facility] omega-3 fatty acids-vitam in E (FISH OIL) 1,000 mg capsule 08-01 23:49: 34 Yes 1g Take 1 g by mouth daily. [facility] loratadine (CLARITIN LIQUI-GEL) 10 mg capsule 08-01 23:49: 34 Yes Take by mouth daily. [facility] ondansetron 4 mg tablet 08-01 23:49: 34 Yes 4mg Take 4 mg by mouth every 8 (eight) hours as needed. [facility] pantoprazol e 40 mg EC tablet 08-01 23:49: 34 Yes 40mg Take 40 mg by mouth daily. [facility] MULTIVITAMI N ORAL 08-01 23:49: 34 Yes 1{tbl} Take 1 Tab by mouth daily. [facility] omega-3 fatty acids-vitam in E (FISH OIL) 1,000 mg capsule 08-01 23:49: 34 Yes 1g Take 1 g by mouth daily. [facility] loratadine (CLARITIN LIQUI-GEL) 10 mg capsule 08-01 23:49: 34 Yes Take by mouth daily. [facility] ondansetron 4 mg tablet 08-01 23:49: 34 Yes 4mg Take 4 mg by mouth every 8 (eight) hours as needed. [facility] pantoprazol e 40 mg EC tablet 08-01 23:49: 34 Yes 40mg Take 40 mg by mouth daily. [facility] MULTIVITAMI N ORAL 08-01 23:49: 34 Yes 1{tbl} Take 1 Tab by mouth daily. [facility] omega-3 fatty acids-vitam in E (FISH OIL) 1,000 mg capsule 08-01 23:49: 34 Yes 1g Take 1 g by mouth daily. [facility] loratadine (CLARITIN LIQUI-GEL) 10 mg capsule 08-01 23:49: 34 Yes Take by mouth daily. [facility] ondansetron 4 mg tablet 08-01 23:49: 34 Yes 4mg Take 4 mg by mouth every 8 (eight) hours as needed. [facility] pantoprazol e 40 mg EC tablet 08-01 23:49: 34 Yes 40mg Take 40 mg by mouth daily. [facility] MULTIVITAMI N ORAL 08-01 23:49: 34 Yes 1{tbl} Take 1 Tab by mouth daily. [facility] omega-3 fatty acids-vitam in E (FISH OIL) 1,000 mg capsule 08-01 23:49: 34 Yes 1g Take 1 g by mouth daily. [facility] loratadine (CLARITIN LIQUI-GEL) 10 mg capsule 08-01 23:49: 34 Yes Take by mouth daily. [facility] ondansetron 4 mg tablet 08-01 23:49: 34 Yes 4mg Take 4 mg by mouth every 8 (eight) hours as needed. [facility] pantoprazol e 40 mg EC tablet 08-01 23:49: 34 Yes 40mg Take 40 mg by mouth daily. [facility] MULTIVITAMI N ORAL 08-01 23:49: 34 Yes 1{tbl} Take 1 Tab by mouth daily. [facility] omega-3 fatty acids-vitam in E (FISH OIL) 1,000 mg capsule 08-01 23:49: 34 Yes 1g Take 1 g by mouth daily. [facility] loratadine (CLARITIN LIQUI-GEL) 10 mg capsule 08-01 23:49: 34 Yes Take by mouth daily. [facility] ondansetron 4 mg tablet 08-01 23:49: 34 Yes 4mg Take 4 mg by mouth every 8 (eight) hours as needed. [facility] pantoprazol e 40 mg EC tablet 08-01 23:49: 34 Yes 40mg Take 40 mg by mouth daily. [facility] benzonatate (TESSALON PERLES) capsule 100 mg 08-01 20:00: 00 Yes 100mg 100 mg, Oral, Q8H, First dose on Thu08/01/22 at 1400, Until Discontinu ed, Routine [facility] ipratropium -albuteroL (DUONEB) 0.5 mg-3 mg(2.5 mg base)/3 mL nebulizer solution 3 mL 08-01 18:00: 00 Yes 3mL 3 mL, Inhalation , QID, First dose on Thu08/01/22 at 1200, Until Discontinu ed, Routine [facility] ipratropium -albuteroL (DUONEB) 0.5 mg-3 mg(2.5 mg base)/3 mL nebulizer solution 3 mL 08-01 17:07: 07 Yes 3mL 3 mL, Inhalation , QIDPRN, Starting on Thu08/01/22 at 1107, Until Discontinu ed, MICHAEL, Wheezing, Shortness of Breath [facility] sulfur hexafluorid e microsphr (LUMASON) injection 5 mL 08-01 17:00: 00 08-01 17:00 :00 No [id number] 5mL 5 mL, Intravenou s, ONCE, 1 dose, On Thu08/01/22 at 1100, Routine
count team member approving Restricted medication : KYLEE MONTEZ [facility] pantoprazol e (PROTONIX) EC tablet 40 mg 08-01 15:00: 00 Yes 40mg 40 mg, Oral, DAILY, First dose on Thu08/01/22 at 0900, Until Discontinu ed, Routine [facility] aspirin chewable tablet 81 mg 08-01 15:00: 00 Yes 81mg 81 mg, Oral, DAILY, First dose on Thu08/01/22 at 0900, Until Discontinu ed, Routine [facility] amLODIPine (NORVASC) tablet 10 mg 08-01 15:00: 00 Yes 10mg 10 mg, Oral, DAILY, First dose on Thu08/01/22 at 0900, Until Discontinu ed, Routine [facility] levETIRAcet am (KEPPRA) tablet 500 mg 08-01 14:00: 00 08-01 23:56 :35 No 500mg 500 mg, Oral, BID, First dose on Thu08/01/22 at 0800, Until Discontinu ed, Routine [facility] carvediloL (COREG) tablet 6.25 mg 08-01 14:00: 00 08-01 17:29 :13 No 6.25mg 6.25 mg, Oral, BID MEALS, First dose on Thu08/01/22 at 0800, Until Discontinu ed, Routine [facility] levETIRAcet am (KEPPRA) in NACL (ISO-OS) 1,000 mg/100 mL RTU 08-01 06:45: 00 08-01 06:32 :00 No 1000mg 1,000 mg, IV Piggyback, ONCE, 1 dose, On Thu08/01/22 at 0045, Administer over 15 Minutes, 100 mL [facility] LORazepam (ATIVAN) injection 1 mg 08-01 05:52: 54 Yes 1mg 1 mg, Slow IV Push, Q4HPRN, Starting on Thu07/31/22 at 2352, Until Discontinu ed, Routine, Seizures, Agitation, Anxiety, ETOH / Cocaine Withdrawl [facility] foLIC acid (FOLATE) tablet 1 mg 08-01 05:45: 00 Yes 1mg 1 mg, Oral, DAILY, First dose on Thu07/31/22 at 2345, Until Discontinu ed, Routine [facility] thiamine (VITAMIN B1) tablet 100 mg 08-01 05:45: 00 Yes 100mg 100 mg, Oral, DAILY, First dose on Thu07/31/22 at 2345, Until Discontinu ed, Routine [facility] LORazepam (ATIVAN) injection 0.5 mg 08-01 05:30: 00 08-01 05:29 :00 No .5mg 0.5 mg, Slow IV Push, ONCE, 1 dose, On Thu07/31/22 at 2330, MICHAEL [facility] atorvastati n (LIPITOR) tablet 40 mg 08-01 03:00: 00 Yes 40mg 40 mg, Oral, QHS, First dose on Thu07/31/22 at 2100, Until Discontinu ed, Routine [facility] diphenhydrA MINE (BENADRYL) tablet 25 mg 08-01 00:32: 02 Yes 25mg 25 mg, Oral, Q6HPRN, Starting on Thu07/31/22 at 1832, Until Discontinu ed, Routine, Itching [facility] enoxaparin (LOVENOX) injection 40 mg 07-31 23:00: 00 Yes 40mg 40 mg, Subcutaneo us, DAILY, First dose on Thu07/31/22 at 1700, Until Discontinu ed, Routine [facility] morpHINE (2 mg/mL) injection 2 mg 07-31 23:00: 00 07-31 22:29 :00 No 2mg 2 mg, Slow IV Push, ONCE, 1 dose, On Thu07/31/22 at 1700, Routine [facility] HYDROcodone -acetaminop hen (NORCO) 10-325 mg tablet 1 tablet 07-31 22:01: 36 Yes 1{tbl} 1 tablet, Oral, Q6HPRN, Starting on Thu07/31/22 at 1601, Until Discontinu ed, Routine, Pain (scale 7-10) [facility] HYDROcodone -acetaminop hen (NORCO 5) 5-325 mg tablet 1 tablet 07-31 22:01: 34 08-02 22:00 :34 No 1{tbl} 1 tablet, Oral, Q6HPRN, Starting on Arpita 07/31/22 at 1601, Until 08/02/22 at 1600, Routine, Pain (scale 4-6) [facility] acetaminoph en (TYLENOL) tablet 650 mg 07-31 22:01: 33 Yes 650mg 650 mg, Oral, Q6HPRN, Starting on Thu07/31/22 at 1601, Until Discontinu ed, Routine, Pain (scale 1-3) [facility] ketorolac (TORADOL) injection 15 mg 07-31 21:45: 00 07-31 20:50 :00 No 15mg 15 mg, Slow IV Push, ONCE, 1 dose, On Thu07/31/22 at 1545, Routine [facility] ondansetron (ZOFRAN (PF)) injection 4 mg 07-31 21:00: 00 07-31 20:47 :00 No 4mg 4 mg, Slow IV Push, ONCE, 1 dose, On Thu07/31/22 at 1500, MICHAEL [facility] furosemide (LASIX) injection 40 mg 07-31 20:15: 00 Yes 40mg 40 mg, Slow IV Push, Q12H, First dose on Thu07/31/22 at 1415, Until Discontinu ed, Routine [facility] methylpredn isolone sod succ (SOLU-MEDRO L) injection 125 mg 07-31 19:30: 00 07-31 18:54 :00 No 125mg 125 mg, Slow IV Push, ONCE NOW, 1 dose, On Arpita 07/31/22 at 1330, MICHAEL [facility] ipratropium -albuteroL (DUONEB) 0.5 mg-3 mg(2.5 mg base)/3 mL nebulizer solution 3 mL 07-31 19:30: 00 07-31 18:48 :00 No 3mL 3 mL, Inhalation , ONCE, 1 dose, On Arpita 07/31/22 at 1330, MICHAEL [facility] pantoprazol e 40 mg EC tablet 07-31 17:15: 40 Yes 40mg Take 40 mg by mouth daily. [facility] MULTIVITAMI N ORAL 07-31 15:50: 57 Yes 1{tbl} Take 1 Tab by mouth daily. [facility] loratadine (CLARITIN LIQUI-GEL) 10 mg capsule 07-31 15:50: 57 Yes Take by mouth daily. [facility] ondansetron 4 mg tablet 07-31 15:50: 57 Yes 4mg Take 4 mg by mouth every 8 (eight) hours as needed. [facility] omega-3 fatty acids-vitam in E (FISH OIL) 1,000 mg capsule 07-31 15:21: 27 Yes 1g Take 1 g by mouth daily. [facility] TAKE ONE (1) TABLET(S) BY MOUTH THREE TIMES A DAY NEEDED. 07-28 00:00: 00 No Methylpredn isolone 4 mg tablet 2021-07 00:00: 00 05-12 04:59 :00 No [id number] 4mg Take 1 tablet through enteral tube in the morning for 1 dose. [facility] Methylpredn isolone 4 mg tablet 2021-07 00:00: 00 05-11 04:59 :00 No [id number] 4mg Take 1 tablet through enteral tube every 12 (twelve) hours for 2 doses. [facility] MULTIVITAMI N ORAL 2021-07 14:44: 48 Yes 1{tbl} Take 1 Tab by mouth daily. [facility] omega-3 fatty acids-vitam in E (FISH OIL) 1,000 mg capsule 2021-07 14:44: 48 Yes 1g Take 1 g by mouth daily. [facility] loratadine (CLARITIN LIQUI-GEL) 10 mg capsule 2021-07 14:44: 48 Yes Take by mouth daily. [facility] ondansetron (ZOFRAN) 4 mg tablet 2021-07 14:44: 48 Yes 4mg Take 4 mg by mouth every 8 (eight) hours as needed. [facility] pantoprazol e (PROTONIX) 40 mg EC tablet 2021-07 14:44: 48 Yes 40mg Take 40 mg by mouth daily. [facility] DULoxetine (CYMBALTA) capsule 30 mg 2021-07 14:00: 00 Yes 30mg 30 mg, Oral, DAILY, First dose on Thu05/08/22 at 0900, Until Discontinu ed, Routine [facility] divalproex (DEPAKOTE) EC tablet 1,000 mg 2021-07 13:00: 00 Yes 1000mg 1,000 mg, Oral, BID, First dose (after last modificati on) on Thu05/08/22 at 0800, Until Discontinu ed, Routine [facility] Methylpredn isolone (MEDROL) tablet 4 mg 2021-07 08:50: 10 05-09 08:59 :00 No 4mg 4 mg, Oral, Q8H TAPER, 3 doses, First dose on Thu05/08/22 at 0400, Last dose on Thu05/08/22 at 2000, Routine [facility] acetaminoph en-codeine (TYLENOL #3) 300-30 mg tablet 1 tablet 2021-07 04:07: 01 Yes 1{tbl} 1 tablet, Oral, Q4HPRN, Starting on Thu05/07/22 at 2307, Until Discontinu ed, Routine, Pain (scale 7-10) [facility] morpHINE (2 mg/mL) injection 2 mg 2021-07 03:03: 15 Yes 2mg 2 mg, Slow IV Push, Q4HPRN, Starting on Thu05/07/22 at 2203, Until Discontinu ed, Routine, Pain (scale 7-10) [facility] LORazepam (ATIVAN) tablet 1 mg 2021-07 00:02: 18 Yes 1mg 1 mg, Oral, Q6HPRN, Starting on Thu05/07/22 at 1902, Until Discontinu ed, Routine, Anxiety [facility] cyclobenzap rine 5 mg tablet 2021-07 00:00: 00 Yes [id number] 5mg Take 1 tablet by mouth in the morning and 1 tablet at noon and 1 tablet in the evening. [facility] cyclobenzap rine 5 mg tablet 2021-07 00:00: 00 Yes [id number] 5mg Take 1 tablet by mouth in the morning and 1 tablet at noon and 1 tablet in the evening. [facility] cyclobenzap rine 5 mg tablet 2021-07 00:00: 00 Yes [id number] 5mg Take 1 tablet by mouth in the morning and 1 tablet at noon and 1 tablet in the evening. [facility] cyclobenzap rine 5 mg tablet 2021-07 00:00: 00 Yes [id number] 5mg Take 1 tablet by mouth in the morning and 1 tablet at noon and 1 tablet in the evening. [facility] cyclobenzap rine 5 mg tablet 2021-07 00:00: 00 Yes [id number] 5mg Take 1 tablet by mouth in the morning and 1 tablet at noon and 1 tablet in the evening. [facility] cyclobenzap rine 5 mg tablet 2021-07 00:00: 00 Yes [id number] 5mg Take 1 tablet by mouth in the morning and 1 tablet at noon and 1 tablet in the evening. [facility] cyclobenzap rine 5 mg tablet 2021-07 00:00: 00 Yes [id number] 5mg Take 1 tablet by mouth in the morning and 1 tablet at noon and 1 tablet in the evening. [facility] DULoxetine (CYMBALTA) 30 mg capsule 2021-07 00:00: 00 06-08 05:59 :00 No [id number] 60mg Take 2 capsules by mouth in the morning for 30 days. [facility] divalproex (DEPAKOTE) 250 mg EC tablet 2021-07 00:00: 00 06-08 05:59 :00 No [id number] 750mg Take 3 tablets by mouth every 8 (eight) hours for 30 days. [facility] mg tablet 2021-07 00:00: 00 05-19 04:59 :00 No [id number] 1mg Take 1 tablet by mouth every 6 (six) hours as needed for Anxiety or Agitation for up to 10 days. [facility] acetaminoph en-codeine 300-30 mg tablet 2021-07 00:00: 00 05-16 04:59 :00 No [id number] 1{tbl} Take 1 tablet by mouth every 4 (four) hours as needed for Pain (scale 7-10) for up to 7 days. Indication s: acute pain [facility] Methylpredn isolone 4 mg tablet 2021-07 00:00: 00 05-10 04:59 :00 No [id number] 4mg Take 1 tablet by mouth every 8 (eight) hours for 3 doses. [facility] divalproex (DEPAKOTE) EC tablet 750 mg 2021-07 01:00: 00 05-08 09:40 :23 No 750mg 750 mg, Oral, BID, First dose on Thu05/06/22 at 2000, Until Discontinu ed, Routine [facility] levETIRAcet am (KEPPRA) tablet 1,500 mg 2021-07 13:00: 00 05-06 18:38 :22 No 1500mg 1,500 mg, Oral, BID, First dose (after last modificati on) on Thu05/06/22 at 0800, Until Discontinu ed, Routine [facility] levETIRAcet am (KEPPRA) in NACL (ISO-OS) 1,000 mg/100 mL RTU 2021-07 05:00: 00 05-06 05:46 :00 No 1000mg 1,000 mg, IV Piggyback, ONCE, 1 dose, On Thu05/06/22 at 0000, Administer over 15 Minutes, 100 mL [facility] methocarbam oL (ROBAXIN) tablet 500 mg 2021-07 02:15: 00 05-06 23:21 :42 No 500mg 500 mg, Oral, QID, First dose on Thu05/05/22 at 2115, Until Discontinu ed, Routine [facility] LORazepam (ATIVAN) tablet 2 mg 2021-07 01:30: 00 05-06 01:03 :00 No 2mg 2 mg, Oral, ONCE, 1 dose, On Thu05/05/22 at 2030, Routine [facility] levETIRAcet am (KEPPRA) tablet 1,000 mg 2021-07 01:00: 00 05-06 04:48 :06 No 1000mg 1,000 mg, Oral, BID, First dose on Thu05/05/22 at 2000, Until Discontinu ed, Routine [facility] enoxaparin (LOVENOX) injection 40 mg 2021-07 00:15: 00 Yes 40mg 40 mg, Subcutaneo us, Q24H, First dose on Thu05/05/22 at 1915, Until Discontinu ed, Routine [facility] levETIRAcet am (KEPPRA) in NACL (ISO-OS) 1,000 mg/100 mL RTU 2021-07 19:45: 00 05-05 20:05 :00 No 1000mg 1,000 mg, IV Piggyback, ONCE, 1 dose, On Thu05/05/22 at 1445, Administer over 15 Minutes, 100 mL [facility] clonazePAM (KLONOPIN) tablet 0.5 mg 2021-07 19:30: 00 Yes .5mg 0.5 mg, Oral, BID, First dose on Thu05/05/22 at 1430, Until Discontinu ed, [facility] ([facility] 600 mg 2021-07 19:30: 00 Yes 600mg 600 mg, Oral, TID MEALS, First dose on Thu05/05/22 at 1430, Until Discontinu ed, Routine [facility] gabap[facility] (NEURONTIN) capsule 300 mg 2021-07 19:30: 00 Yes 300mg 300 mg, Oral, TID, First dose on Thu05/05/22 at 1430, Until Discontinu ed, Routine [facility] cyclobenzap rine (FLEXERIL) tablet 5 mg 2021-07 19:30: 00 Yes 5mg 5 mg, Oral, TID, First dose on Thu05/05/22 at 1430, Until Discontinu ed, Routine [facility] acetaminoph en (TYLENOL) tablet 1,000 mg 2021-07 19:30: 00 Yes 1000mg 1,000 mg, Oral, Q8H, First dose on Thu05/05/22 at 1430, Until Discontinu ed, Routine [facility] pantoprazol e (PROTONIX) EC tablet 40 mg 2021-07 14:00: 00 Yes 40mg 40 mg, Oral, DAILY, First dose on Thu05/05/22 at 0900, Until Discontinu ed, Routine [facility] docusate (COLACE) capsule 100 mg 2021-07 14:00: 00 Yes 100mg 100 mg, Oral, DAILY, First dose on Thu05/05/22 at 0900, Until Discontinu ed, Routine [facility] HYDROcodone -acetaminop hen (NORCO) 10-325 mg tablet 1 tablet 2021-07 10:32: 02 05-05 19:18 :52 No 1{tbl} 1 tablet, Oral, Q6HPRN, Starting on Thu05/05/22 at 0532, Until Thu05/05/22 at 1418, Routine, Pain (scale 7-10) [facility] ondansetron (ZOFRAN (PF)) injection 4 mg 2021-07 06:49: 57 Yes 4mg 4 mg, Slow IV Push, Q6HPRN, Starting on Thu05/05/22 at 0149, Until Discontinu ed, Routine, Nausea and Vomiting (N/V) [facility] HYDROcodone -acetaminop hen (NORCO 5) 5-325 mg tablet 1 tablet 2021-07 06:49: 41 05-05 10:32 :14 No 1{tbl} 1 tablet, Oral, Q6HPRN, Starting on Thu05/05/22 at 0149, Until Thu05/05/22 at 0532, Routine, Pain (scale 7-10) [facility] acetaminoph en (TYLENOL) tablet 325 mg 2021-07 06:49: 39 05-05 19:18 :52 No 325mg 325 mg, Oral, Q4HPRN, Starting on Thu05/05/22 at 0149, Until Thu05/05/22 at 1418, Routine, Pain (scale 4-6) [facility] ondansetron (ZOFRAN) tablet 4 mg 2021-07 04:00: 00 05-05 03:26 :00 No 4mg 4 mg, Oral, ONCE, 1 dose, On 05/04/22 at 2300, Routine [facility] morpHINE (2 mg/mL) injection 2 mg 2021-07 04:00: 00 05-05 03:26 :00 No 2mg 2 mg, Slow IV Push, ONCE, 1 dose, On 05/04/22 at 2300, Routine [facility] aspirin 81 mg chewable tablet 04-16 00:00: 00 Yes [id number] 81mg Take 1 tablet by mouth in the morning. [facility] aspirin 81 mg chewable tablet 04-16 00:00: 00 Yes [id number] 81mg Take 1 tablet by mouth in the morning. [facility] aspirin 81 mg chewable tablet 04-16 00:00: 00 Yes [id number] 81mg Take 1 tablet by mouth in the morning. [facility] aspirin 81 mg chewable tablet 04-16 00:00: 00 Yes [id number] 81mg Take 1 tablet by mouth in the morning. [facility] aspirin 81 mg chewable tablet 04-16 00:00: 00 Yes [id number] 81mg Take 1 tablet by mouth in the morning. [facility] aspirin 81 mg chewable tablet 04-16 00:00: 00 Yes [id number] 81mg Take 1 tablet by mouth in the morning. [facility] aspirin 81 mg chewable tablet 04-16 00:00: 00 Yes [id number] 81mg Take 1 tablet by mouth in the morning. [facility] aspirin 81 mg chewable tablet 04-16 00:00: 00 Yes [id number] 81mg Take 1 tablet by mouth in the morning. [facility] MULTIVITAMI N ORAL 04-15 17:39: 14 Yes 1{tbl} Take 1 Tab by mouth daily. [facility] omega-3 fatty acids-vitam in E (FISH OIL) 1,000 mg capsule 04-15 17:39: 14 Yes 1g Take 1 g by mouth daily. [facility] loratadine (CLARITIN LIQUI-GEL) 10 mg capsule 04-15 17:39: 14 Yes Take by mouth daily. [facility] ondansetron (ZOFRAN) 4 mg tablet 04-15 17:39: 14 Yes 4mg Take 4 mg by mouth every 8 (eight) hours as needed. [facility] pantoprazol e (PROTONIX) 40 mg EC tablet 04-15 17:39: 14 Yes 40mg Take 40 mg by mouth daily. [facility] lisinopril- hydrochloro thiazide 20-12.5 mg per tablet 04-15 15:58: 35 04-15 00:00 :00 No 1{tbl} Take 1 tablet by mouth daily. [facility] levetiracet am (KEPPRA ORAL) 04-15 15:58: 35 04-15 00:00 :00 No Take by mouth. [facility] acetaminoph en-codeine (TYLENOL #4) 300-60 mg tablet 1 tablet 04-15 05:39: 23 04-15 14:39 :42 No 1{tbl} 1 tablet, Oral, Q6HPRN, Starting on Thu04/15/22 at 0039, Until Thu04/15/22 at 0939, Routine, Pain (scale 4-6), Pain (scale 1-3) [facility] LORazepam (ATIVAN) tablet 2 mg 04-15 03:30: 00 04-15 10:27 :00 No 2mg 2 mg, Oral, ONCE, 1 dose, On Thu04/14/22 at 2230, Routine [facility] levETIRAcet am (KEPPRA) tablet 1,000 mg 04-15 02:45: 00 Yes 1000mg 1,000 mg, Oral, BID, First dose (after last modificati on) on Thu04/14/22 at 2145, Until Discontinu ed, Routine [facility] ketorolac (TORADOL) injection 15 mg 04-15 02:13: 00 04-15 02:22 :00 No 15mg 15 mg, Slow IV Push, ONCE, 1 dose, On Thu04/14/22 at 2115, Routine [facility] levETIRAcet am 1,000 mg tablet 04-15 00:00: 00 Yes [id number] 1000mg Take 1 tablet by mouth in the morning and 1 tablet in the evening. [facility] atorvastati n 40 mg tablet 04-15 00:00: 00 Yes [id number] 40mg Take 1 tablet by mouth at bedtime. [facility] atorvastati n 40 mg tablet 04-15 00:00: 00 Yes [id number] 40mg Take 1 tablet by mouth at bedtime. [facility] atorvastati n 40 mg tablet 04-15 00:00: 00 Yes [id number] 40mg Take 1 tablet by mouth at bedtime. [facility] atorvastati n 40 mg tablet 04-15 00:00: 00 Yes [id number] 40mg Take 1 tablet by mouth at bedtime. [facility] atorvastati n 40 mg tablet 04-15 00:00: 00 Yes [id number] 40mg Take 1 tablet by mouth at bedtime. [facility] atorvastati n 40 mg tablet 04-15 00:00: 00 Yes [id number] 40mg Take 1 tablet by mouth at bedtime. [facility] atorvastati n 40 mg tablet 04-15 00:00: 00 Yes [id number] 40mg Take 1 tablet by mouth at bedtime. [facility] atorvastati n 40 mg tablet 04-15 00:00: 00 Yes [id number] 40mg Take 1 tablet by mouth at bedtime. [facility] levETIRAcet am 1,000 mg tablet 04-15 00:00: 00 05-08 00:00 :00 No [id number] 1000mg Take 1 tablet by mouth in the morning and 1 tablet in the evening. [facility] lidocaine 5 % (700 mg/patch) patch 04-15 00:00: 00 04-23 04:59 :00 No [id number] 1{patch } Apply 1 Patch to area(s) in the morning for 7 days. [facility] HYDROcodone -acetaminop hen 5-325 mg tablet 04-15 00:00: 00 04-21 04:59 :00 No [id number] 1{tbl} Take 1 tablet by mouth every 6 (six) hours as needed for Pain (scale 7-10) for up to 5 days. Indication s: acute pain [facility] lidocaine (LIDODERM) 5 % (700 mg/patch) patch 1 Patch 04-14 21:45: 29 Yes 1{patch } 1 Patch, Topical, Administer over 12 Hours, [id number], Starting on Thu04/14/22 at 1645, Until Discontinu ed, Routine, Localized pain [facility] aspirin chewable tablet 81 mg 04-14 21:30: 00 Yes 81mg 81 mg, Oral, DAILY, First dose on Thu04/14/22 at 1630, Until Discontinu ed, Routine [facility] acetaminoph en (TYLENOL) tablet 650 mg 04-14 21:29: 25 Yes 650mg 650 mg, Oral, Q6HPRN, Starting on Thu04/14/22 at 1629, Until Discontinu ed, Routine, Pain (scale 1-3), Temp > 38.5 C, Temp > 37.5 C [facility] HYDROcodone -acetaminop hen (NORCO) 10-325 mg tablet 1 tablet 04-14 21:29: 02 04-15 05:39 :41 No 1{tbl} 1 tablet, Oral, Q6HPRN, Starting on Thu04/14/22 at 1629, Until Thu04/15/22 at 0039, Routine, Pain (scale 7-10), Pain (scale 4-6) [facility] sulfur hexafluorid e microsphr (LUMASON) injection 5 mL 04-14 16:45: 00 04-14 16:45 :00 No [id number] 5mL 5 mL, Intravenou s, ONCE, 1 dose, On Thu04/14/22 at 1145, Routine
count team member approving Restricted medication : [employer] [facility] clopidogreL (PLAVIX) 75 mg tablet 75 mg 04-14 14:00: 00 Yes 75mg 75 mg, Oral, DAILY, First dose on Thu04/14/22 at 0900, Until Discontinu ed, Routine [facility] pantoprazol e (PROTONIX) EC tablet 40 mg 04-14 14:00: 00 Yes 40mg 40 mg, Oral, DAILY, First dose on Thu04/14/22 at 0900, Until Discontinu ed, Routine [facility] atorvastati n (LIPITOR) tablet 40 mg 04-14 02:00: 00 Yes 40mg 40 mg, Oral, QHS, First dose on Thu04/13/22 at 2100, Until Discontinu ed, Routine [facility] LORazepam (ATIVAN) tablet 1 mg 04-14 01:30: 00 04-14 01:45 :00 No 1mg 1 mg, Oral, ONCE, 1 dose, On Thu04/13/22 at 2030, Routine [facility] methocarbam oL (ROBAXIN) tablet 500 mg 04-14 01:00: 00 Yes 500mg 500 mg, Oral, QID, First dose on Thu04/13/22 at 2000, Until Discontinu ed, Routine [facility] heparin (porcine) injection 5,000 Units 04-14 01:00: 00 Yes 5000U 5,000 Units, Subcutaneo us, Q12H, First dose on Thu04/13/22 at 2000, Until Discontinu ed, Routine [facility] acetaminoph en (TYLENOL) tablet 650 mg 04-14 00:23: 25 04-14 21:29 :42 No 650mg 650 mg, Oral, Q6HPRN, Starting on Thu04/13/22 at 1923, Until Thu04/14/22 at 1629, Routine, Pain (scale 1-3), Pain (scale 4-6), Temp > 38.5 C, Temp > 37.5 C [facility] lidocaine (LIDODERM) 5 % (700 mg/patch) patch 1 Patch 04-14 00:22: 00 04-14 13:51 :00 No 1{patch } 1 Patch, Topical, Administer over 12 Hours, ONCE, 1 dose, On Thu04/13/22 at 1930, Routine [facility] FENTanyl PF (SUBLIMAZE (PF)) injection 50 mcg 04-13 20:30: 00 04-13 19:22 :00 No 50ug 50 mcg, Slow IV Push, ONCE, 1 dose, On Thu04/13/22 at 1530, Routine [facility] aspirin chewable tablet 650 mg 04-13 20:15: 00 04-13 20:15 :00 No 650mg 650 mg, Oral, ONCE, 1 dose, On Thu04/13/22 at 1515, Routine [facility] clopidogreL (PLAVIX) 300 mg tablet 300 mg 04-13 20:00: 00 04-13 19:15 :00 No 300mg 300 mg, Oral, ONCE, 1 dose, On 04/13/22 at 1500, Routine [facility] ondansetron (ZOFRAN (PF)) injection 4 mg 04-13 19:30: 00 04-13 19:22 :00 No 4mg 4 mg, Slow IV Push, ONCE, 1 dose, On 04/13/22 at 1430, MICHAEL [facility] iopamidol (ISOVUE 370-500 mL) injection 100 mL 04-13 18:31: 00 04-13 18:32 :00 No [id number] 100mL 100 mL, Intravenou s, ONCE, 1 dose, On 04/13/22 at 1345, Routine [facility] NaCl 0.9% (NS) injection 5 mL 04-13 18:14: 11 Yes 5mL 5 mL, Slow IV Push, PRN - SEE INSTRUCTIO NS, Starting on 04/13/22 at 1314, Until Discontinu ed, 10 mL [facility] aspirin chewable tablet 324 mg 11-24 14:00: 00 Yes 324mg 324 mg, Oral, DAILY, First dose on 11/24/21 at 0900, Until Discontinu ed, Routine [facility] metoclopram iker HCl (REGLAN) injection 10 mg 11-23 22:30: 00 11-23 21:24 :00 No 10mg 10 mg, Slow IV Push, ONCE, 1 dose, On 11/23/21 at 1730, [facility] acetaminoph en (TYLENOL) tablet 1,000 mg 11-23 22:15: 00 11-23 21:09 :00 No 1000mg 1,000 mg, Oral, ONCE, 1 dose, On 11/23/21 at 1715, MICHAEL [facility] ondansetron (ZOFRAN (PF)) injection 4 mg 11-23 21:45: 00 11-23 20:30 :00 No 4mg 4 mg, Slow IV Push, ONCE, 1 dose, On 11/23/21 at 1645, [facility] NaCl 0.9% (NS) bolus infusion 1,000 mL 11-23 21:30: 00 11-23 21:56 :00 No 1000mL at 999 mL/hr, 1,000 mL, IV Infusion, ONCE, 1 dose, [facility] 11[facility]23[facility]21 [facility] 1630[facility]AN[facility] 4 mg 11-23 21:30: 00 11-23 20:23 :00 No 4mg 4 mg, Slow IV Push, ONCE, 1 dose, On 11/23/21 at 1630, STAT [facility] levETIRAcet am (KEPPRA) in NACL (ISO-OS) 1,500 mg/100 mL RTU 11-23 21:30: 00 11-23 20:47 :00 No 1500mg 1,500 mg, IV Piggyback, ONCE, 1 dose, On 11/23/21 at 1630, Administer over 15 Minutes, 100 mL [facility] Dose Unknown 2021-0 4-08 00:00: 00 No Dose Unknown 2021-0 4-08 00:00: 00 No Prozac 20 mg capsule 2021-0 3-21 00:00: 00 No 1mg Prozac 20 mg capsule 2021-0 3-21 00:00: 00 No 1mg Dose Unknown 2021-0 3-16 00:00: 00 No Dose Unknown 2-0 3-16 00:00: 00 No Dose Unknown 2022-0 3-16 00:00: 00 No Dose Unknown 2022-0 3-16 00:00: 00 No Dose Unknown 2-0 3-15 00:00: 00 No Dose Unknown 2022-0 3-15 00:00: 00 No Dose Unknown 2-0 3-15 00:00: 00 No Dose Unknown 2-0 3-15 00:00: 00 No Dose Unknown 2022-0 [...] 00 No hydroxyzine HCl 50 mg tablet 0 3- 00:00: 00 No 1mg Prozac 20 mg capsule 0 3- 00:00: 00 No 1mg hydroxyzine HCl 50 mg tablet 3- 00:00: 00 No 1mg Prozac 20 mg capsule 3 00:00: 00 No 1mg Dose Unknown 3- 00:00: 00 No Dose Unknown 3- 00:00: 00 No Dose Unknown 3- 00:00: 00 No Dose Unknown 3 00:00: 00 No Dose Unknown 3 00:00: 00 No Dose Unknown 3 00:00: 00 No Dose Unknown 3 00:00: 00 No Dose Unknown 3 00:00: 00 No Dose Unknown 3 00:00: 00 No Dose Unknown 3 00:00: 00 No Wellbutrin XL 150 mg [...] y
Durat ion of Therapy: 7 days [facility] levoFLOXaci n (LEVAQUIN) tablet 500 mg 03-17 04:00: 00 03-17 04:22 :00 No 500mg 500 mg, Oral, ONCE, 1 dose, 03/16/21 at 2315, MICHAEL
Re ason for Anti-Infec tive: Documented Infection< br>Documen sherice Infection Site: Respirator y
Durat ion of Therapy: 7 days [facility] morpHINE injection 4 mg 03-17 01:58: 00 03-17 02:13 :00 No 4mg 4 mg, Slow IV Push, ONCE, 1 dose, 03/16/21 at 2100, STAT [facility] ondansetron (ZOFRAN (PF)) injection 4 mg 03-17 01:58: 00 03-17 02:12 :00 No 4mg 4 mg, Slow IV Push, ONCE, 1 dose, 03/16/21 at 2100, [facility] morpHINE injection 4 mg 03-17 01:58: 00 03-17 02:13 :00 No 4mg 4 mg, Slow IV Push, ONCE, 1 dose, 03/16/21 at 2100, STAT [facility] ondansetron (ZOFRAN (PF)) injection 4 mg 03-17 01:58: 00 03-17 02:12 :00 No 4mg 4 mg, Slow IV Push, ONCE, 1 dose, 03/16/21 at 2100, [facility] ipratropium -albuteroL (DUONEB) 0.5 mg-3 mg(2.5 mg base)/3 mL nebulizer solution 3 mL 03-17 01:57: 00 03-17 02:15 :00 No 3mL 3 mL, Inhalation , ONCE, 1 dose, 03/16/21 at 2100, [facility] NaCl 0.9% (NS) IV infusion 1,000 mL 03-17 01:57: 00 03-17 03:07 :00 No 1000mL at 999 mL/hr, Intravenou s, ONCE, 1 dose, 03/16/21 at 2100, [facility] methylpredn isolone sod succ (SOLU-MEDRO L) injection 125 mg 03-17 01:57: 00 03-17 02:11 :00 No 125mg 125 mg, Slow IV Push, ONCE, 1 dose, 03/16/21 at 2100, [facility] ipratropium -albuteroL (DUONEB) 0.5 mg-3 mg(2.5 mg base)/3 mL nebulizer solution 3 mL 03-17 01:57: 00 03-17 02:15 :00 No 3mL 3 mL, Inhalation , ONCE, 1 dose, 03/16/21 at 2100, [facility] ipratropium -albuteroL (DUONEB) 0.5 mg-3 mg(2.5 mg base)/3 mL nebulizer solution 3 mL 03-17 01:57: 00 03-17 02:15 :00 No 3mL 3 mL, Inhalation , ONCE, 1 dose, 03/16/21 at 2100, [facility] NaCl 0.9% (NS) IV infusion 1,000 mL 03-17 01:57: 00 03-17 03:07 :00 No 1000mL at 999 mL/hr, Intravenou s, ONCE, 1 dose, 03/16/21 at 2100, [facility] methylpredn isolone sod succ (SOLU-MEDRO L) injection 125 mg 03-17 01:57: 00 03-17 02:11 :00 No 125mg 125 mg, Slow IV Push, ONCE, 1 dose, 03/16/21 at 2100, [facility] ipratropium -albuteroL (DUONEB) 0.5 mg-3 mg(2.5 mg base)/3 mL nebulizer solution 3 mL 03-17 01:57: 00 03-17 02:15 :00 No 3mL 3 mL, Inhalation , ONCE, 1 dose, 03/16/21 at 2100, MICHAEL [facility] levoFLOXaci n 500 mg tablet 03-17 00:00: 00 03-24 04:59 :00 No [id number] 500mg Take 1 tablet by mouth daily for 6 days. [facility] levoFLOXaci n 500 mg tablet 03-17 00:00: 00 03-24 04:59 :00 No [id number] 500mg Take 1 tablet by mouth daily for 6 days. [facility] levoFLOXaci n 500 mg tablet 03-17 00:00: 00 03-24 04:59 :00 No [id number] 500mg Take 1 tablet by mouth daily for 6 days. [facility] levoFLOXaci n 500 mg tablet 03-17 00:00: 00 03-24 04:59 :00 No [id number] 500mg Take 1 tablet by mouth daily for 6 days. [facility] predniSONE 10 mg tablet 03-17 00:00: 00 03-22 04:59 :00 No [id number] 30mg Take 3 tablets by mouth daily for 4 days. [facility] predniSONE 10 mg tablet 03-17 00:00: 00 03-22 04:59 :00 No [id number] 30mg Take 3 tablets by mouth daily for 4 days. [facility] predniSONE 10 mg tablet 03-17 00:00: 00 03-22 04:59 :00 No [id number] 30mg Take 3 tablets by mouth daily for 4 days. [facility] predniSONE 10 mg tablet 03-17 00:00: 00 03-22 04:59 :00 No [id number] 30mg Take 3 tablets by mouth daily for 4 days. [facility] albuterol (VENTOLIN) inhaler 4 Puff 03-15 01:45: 00 03-15 00:44 :00 No [id number] 4{puff} 4 Puff, Inhalation , ONCE, 1 dose, [facility] 03/14/21 at 2044, Routine [facility] dexamethaso ne (DECADRON) injection 10 mg 03-15 01:45: 00 03-15 00:45 :00 No [id number] 10mg 10 mg, Intramuscu lar, ONCE, 1 dose, [facility] 03/14/21 at 2044, Routine [facility] albuterol 2.5 mg /3 mL (0.083 %) nebulizer solution 03-15 00:00: 00 Yes [id number] 2.5mg Inhale 3 mL every 4 (four) hours as needed for Wheezing or Shortness of Breath. [facility] albuterol 2.5 mg /3 mL (0.083 %) nebulizer solution 03-15 00:00: 00 Yes [id number] 2.5mg Inhale 3 mL every 4 (four) hours as needed for Wheezing or Shortness of Breath. [facility] albuterol 2.5 mg /3 mL (0.083 %) nebulizer solution 03-15 00:00: 00 Yes [id number] 2.5mg Inhale 3 mL every 4 (four) hours as needed for Wheezing or Shortness of Breath. [facility] albuterol 2.5 mg /3 mL (0.083 %) nebulizer solution 03-15 00:00: 00 Yes [id number] 2.5mg Inhale 3 mL every 4 (four) hours as needed for Wheezing or Shortness of Breath. [facility] albuterol 2.5 mg /3 mL (0.083 %) nebulizer solution 03-15 00:00: 00 Yes [id number] 2.5mg Inhale 3 mL every 4 (four) hours as needed for Wheezing or Shortness of Breath. [facility] albuterol 2.5 mg /3 mL (0.083 %) nebulizer solution 03-15 00:00: 00 Yes [id number] 2.5mg Inhale 3 mL every 4 (four) hours as needed for Wheezing or Shortness of Breath. [facility] albuterol 2.5 mg /3 mL (0.083 %) nebulizer solution 03-15 00:00: 00 Yes [id number] 2.5mg Inhale 3 mL every 4 (four) hours as needed for Wheezing or Shortness of Breath. [facility] albuterol 2.5 mg /3 mL (0.083 %) nebulizer solution 03-15 00:00: 00 Yes [id number] 2.5mg Inhale 3 mL every 4 (four) hours as needed for Wheezing or Shortness of Breath. [facility] albuterol 2.5 mg /3 mL (0.083 %) nebulizer solution 03-15 00:00: 00 Yes [id number] 2.5mg Inhale 3 mL every 4 (four) hours as needed for Wheezing or Shortness of Breath. [facility] albuterol 2.5 mg /3 mL (0.083 %) nebulizer solution 03-15 00:00: 00 Yes [id number] 2.5mg Inhale 3 mL every 4 (four) hours as needed for Wheezing or Shortness of Breath. [facility] albuterol 2.5 mg /3 mL (0.083 %) nebulizer solution 03-15 00:00: 00 Yes [id number] 2.5mg Inhale 3 mL every 4 (four) hours as needed for Wheezing or Shortness of Breath. [facility] albuterol 2.5 mg /3 mL (0.083 %) nebulizer solution 03-15 00:00: 00 Yes [id number] 2.5mg Inhale 3 mL every 4 (four) hours as needed for Wheezing or Shortness of Breath. [facility] albuterol 2.5 mg /3 mL (0.083 %) nebulizer solution 03-15 00:00: 00 Yes [id number] 2.5mg Inhale 3 mL every 4 (four) hours as needed for Wheezing or Shortness of Breath. [facility] albuterol 2.5 mg /3 mL (0.083 %) nebulizer solution 03-15 00:00: 00 Yes [id number] 2.5mg Inhale 3 mL every 4 (four) hours as needed for Wheezing or Shortness of Breath. [facility] albuterol 2.5 mg /3 mL (0.083 %) nebulizer solution 03-15 00:00: 00 Yes [id number] 2.5mg Inhale 3 mL every 4 (four) hours as needed for Wheezing or Shortness of Breath. [facility] albuterol 2.5 mg /3 mL (0.083 %) nebulizer solution 03-15 00:00: 00 Yes [id number] 2.5mg Inhale 3 mL every 4 (four) hours as needed for Wheezing or Shortness of Breath. [facility] albuterol 2.5 mg /3 mL (0.083 %) nebulizer solution 03-15 00:00: 00 Yes [id number] 2.5mg Inhale 3 mL every 4 (four) hours as needed for Wheezing or Shortness of Breath. [facility].5 [facility] /3 mL (0.083 %) nebulizer solution 03-15 00:00: 00 Yes [id number] 2.5mg Inhale 3 mL every 4 (four) hours as needed for Wheezing or Shortness of Breath. [facility] levETIRAcet am (KEPPRA) in NACL (ISO-OS) 1,000 mg/100 mL RTU 02-19 20:15: 00 02-19 19:30 :00 No 1000mg 1,000 mg, IV Infusion, ONCE, 1 dose, Thu02/19/21 at 1515, Administer over 15 Minutes, 100 mL [facility] levetiracet am (KEPPRA ORAL) 02-19 19:45: 33 Yes Take by mouth. [facility] levetiracet am (KEPPRA ORAL) 02-19 19:45: 33 Yes Take by mouth. [facility] levetiracet am (KEPPRA ORAL) 02-19 19:45: 33 Yes Take by mouth. [facility] levetiracet am (KEPPRA ORAL) 02-19 19:45: 33 Yes Take by mouth. [facility] levetiracet am (KEPPRA ORAL) 02-19 19:45: 33 Yes Take by mouth. [facility] levetiracet am (KEPPRA ORAL) 02-19 19:45: 33 Yes Take by mouth. [facility] LISINOPRIL- HYDROCHLORO THIAZIDE ORAL 02-19 19:41: 15 02-19 00:00 :00 No Take by mouth. [facility] dicyclomine (BENTYL) injection 20 mg 02-19 19:15: 02-19 19:04 :00 No 20mg 20 mg, Intramuscu lar, ONCE, 1 dose, 02/19/21 at 1415, Routine [facility] proMETHazin e (PHENERGAN) 25 mg in NaCl 0.9% (NS) 50 mL piggyback 02-19 19:15: 00 02-19 19:03 :00 No 25mg 25 mg, IV Piggyback, ONCE, 1 dose, 02/19/21 at 1415, 50 mL [facility] morpHINE injection 4 mg 02-19 17:15: 00 02-19 17:05 :00 No 4mg 4 mg, Slow IV Push, ONCE, 1 dose, 02/19/21 at 1215, STAT [facility] NaCl 0.9% (NS) bolus infusion 1,000 mL 02-19 17:15: 00 02-19 19:04 :00 No 1000mL at 999 mL/hr, 1,000 mL, IV Infusion, ONCE, 1 dose, 02/19/21 at 1215, STAT [facility] ondansetron (ZOFRAN (PF)) injection 4 mg 02-19 17:00: 00 02-19 15:59 :00 No 4mg 4 mg, Slow IV Push, ONCE, 1 dose, Thu02/19/21 at 1200, MICHAEL [facility] iopamidol (ISOVUE 370-500 mL) injection 100 mL 02-19 16:35: 00 02-19 16:45 :00 No [id number] 100mL 100 mL, Intravenou s, ONCE, 1 dose, Thu02/19/21 at 1145, Routine [facility] levetiracet am (KEPPRA ORAL) 02-19 14:45: 33 Yes Take by mouth. [facility] levetiracet am (KEPPRA ORAL) 02-19 14:45: 33 Yes Take by mouth. [facility] levetiracet am (KEPPRA ORAL) 02-19 14:45: 33 Yes Take by mouth. [facility] levetiracet am (KEPPRA ORAL) 02-19 14:45: 33 Yes Take by mouth. [facility] levetiracet am (KEPPRA ORAL) 02-19 14:45: 33 Yes Take by mouth. [facility] proMETHazin e 25 mg tablet 02-19 00:00: 00 Yes [id number] 25mg Take 1 tablet by mouth every 6 (six) hours as needed for Nausea and Vomiting (N/V). [facility] dicyclomine 20 mg tablet 02-19 00:00: 00 Yes [id number] 20mg Take 1 tablet by mouth 4 (four) times daily as needed for Abdominal pain. [facility] proMETHazin e 25 mg tablet 02-19 00:00: 00 Yes [id number] 25mg Take 1 tablet by mouth every 6 (six) hours as needed for Nausea and Vomiting (N/V). [facility] dicyclomine 20 mg tablet 02-19 00:00: 00 Yes [id number] 20mg Take 1 tablet by mouth 4 (four) times daily as needed for Abdominal pain. [facility] proMETHazin e 25 mg tablet 0 02-19 00:00: 00 Yes [id number] 25mg Take 1 tablet by mouth every 6 (six) hours as needed for Nausea and Vomiting (N/V). [facility] dicyclomine 20 mg tablet 0 02-19 00:00: 00 Yes [id number] 20mg Take 1 tablet by mouth 4 (four) times daily as needed for Abdominal pain. [facility] proMETHazin e 25 mg tablet 0 02-19 00:00: 00 Yes [id number] 25mg Take 1 tablet by mouth every 6 (six) hours as needed for Nausea and Vomiting (N/V). [facility] dicyclomine 20 mg tablet 02-19 00:00: 00 Yes [id number] 20mg Take 1 tablet by mouth 4 (four) times daily as needed for Abdominal pain. [facility] proMETHazin e 25 mg tablet 0 02-19 00:00: 00 Yes [id number] 25mg Take 1 tablet by mouth every 6 (six) hours as needed for Nausea and Vomiting (N/V). [facility] dicyclomine 20 mg tablet 02-19 00:00: 00 Yes [id number] 20mg Take 1 tablet by mouth 4 (four) times daily as needed for Abdominal pain. [facility] proMETHazin e 25 mg tablet 0 02-19 00:00: 00 Yes [id number] 25mg Take 1 tablet by mouth every 6 (six) hours as needed for Nausea and Vomiting (N/V). [facility] dicyclomine 20 mg tablet 2020-0 02-19 00:00: 00 Yes [id number] 20mg Take 1 tablet by mouth 4 (four) times daily as needed for Abdominal pain. [facility] proMETHazin e 25 mg tablet 2020-0 02-19 00:00: 00 Yes [id number] 25mg Take 1 tablet by mouth every 6 (six) hours as needed for Nausea and Vomiting (N/V). [facility] dicyclomine 20 mg tablet 0 8 00:00: 00 Yes [id number] 20mg Take 1 tablet by mouth 4 (four) times daily as needed for Abdominal pain. [facility] proMETHazin e 25 mg tablet 0 8 00:00: 00 Yes [id number] 25mg Take 1 tablet by mouth every 6 (six) hours as needed for Nausea and Vomiting (N/V). [facility] dicyclomine 20 mg tablet 0 02-19 00:00: 00 Yes [id number] 20mg Take 1 tablet by mouth 4 (four) times daily as needed for Abdominal pain. [facility] proMETHazin e 25 mg tablet 0 02-19 00:00: 00 Yes [id number] 25mg Take 1 tablet by mouth every 6 (six) hours as needed for Nausea and Vomiting (N/V). [facility] dicyclomine 20 mg tablet 0 02-19 00:00: 00 Yes [id number] 20mg Take 1 tablet by mouth 4 (four) times daily as needed for Abdominal pain. [facility] proMETHazin e 25 mg tablet 02-19 00:00: 00 Yes [id number] 25mg Take 1 tablet by mouth every 6 (six) hours as needed for Nausea and Vomiting (N/V). [facility] dicyclomine 20 mg tablet 2020-0 02-19 00:00: 00 Yes [id number] 20mg Take 1 tablet by mouth 4 (four) times daily as needed for Abdominal pain. [facility] proMETHazin e 25 mg tablet 2020-0 8- 00:00: 00 Yes [id number] 25mg Take 1 tablet by mouth every 6 (six) hours as needed for Nausea and Vomiting (N/V). [facility] dicyclomine 20 mg tablet 2020-0 8- 00:00: 00 Yes [id number] 20mg Take 1 tablet by mouth 4 (four) times daily as needed for Abdominal pain. [facility] proMETHazin e 25 mg tablet 02-19 00:00: 00 Yes [id number] 25mg Take 1 tablet by mouth every 6 (six) hours as needed for Nausea and Vomiting (N/V). [facility] dicyclomine 20 mg tablet 02-19 00:00: 00 Yes [id number] 20mg Take 1 tablet by mouth 4 (four) times daily as needed for Abdominal pain. [facility] proMETHazin e 25 mg tablet 02-19 00:00: 00 Yes [id number] 25mg Take 1 tablet by mouth every 6 (six) hours as needed for Nausea and Vomiting (N/V). [facility] dicyclomine 20 mg tablet 02-19 00:00: 00 Yes [id number] 20mg Take 1 tablet by mouth 4 (four) times daily as needed for Abdominal pain. [facility] proMETHazin e 25 mg tablet 02-19 00:00: 00 Yes [id number] 25mg Take 1 tablet by mouth every 6 (six) hours as needed for Nausea and Vomiting (N/V). [facility] dicyclomine 20 mg tablet 02-19 00:00: 00 Yes [id number] 20mg Take 1 tablet by mouth 4 (four) times daily as needed for Abdominal pain. [facility] proMETHazin e 25 mg tablet 02-19 00:00: 00 Yes [id number] 25mg Take 1 tablet by mouth every 6 (six) hours as needed for Nausea and Vomiting (N/V). [facility] dicyclomine 20 mg tablet 02-19 00:00: 00 Yes [id number] 20mg Take 1 tablet by mouth 4 (four) times daily as needed for Abdominal pain. [facility] proMETHazin e 25 mg tablet 02-19 00:00: 00 Yes [id number] 25mg Take 1 tablet by mouth every 6 (six) hours as needed for Nausea and Vomiting (N/V). [facility] dicyclomine 20 mg tablet 02-19 00:00: 00 Yes [id number] 20mg Take 1 tablet by mouth 4 (four) times daily as needed for Abdominal pain. [facility] proMETHazin e 25 mg tablet 02-19 00:00: 00 Yes [id number] 25mg Take 1 tablet by mouth every 6 (six) hours as needed for Nausea and Vomiting (N/V). [facility] dicyclomine 20 mg tablet 02-19 00:00: 00 Yes [id number] 20mg Take 1 tablet by mouth 4 (four) times daily as needed for Abdominal pain. [facility] proMETHazin e 25 mg tablet 02-19 00:00: 00 Yes [id number] 25mg Take 1 tablet by mouth every 6 (six) hours as needed for Nausea and Vomiting (N/V). [facility] dicyclomine 20 mg tablet 02-19 00:00: 00 Yes [id number] 20mg Take 1 tablet by mouth 4 (four) times daily as needed for Abdominal pain. [facility] proMETHazin e 25 mg tablet 02-19 00:00: 00 Yes [id number] 25mg Take 1 tablet by mouth every 6 (six) hours as needed for Nausea and Vomiting (N/V). [facility] dicyclomine 20 mg tablet 02-19 00:00: 00 Yes [id number] 20mg Take 1 tablet by mouth 4 (four) times daily as needed for Abdominal pain. [facility] ZONISAMIDE 100 mg capsule 11-15 00:00: 00 Yes TAKE 1 CAPSULE BY MOUTH TWICE A DAY [facility] ZONISAMIDE 100 mg capsule 11-15 00:00: 00 02-19 00:00 :00 No TAKE 1 CAPSULE BY MOUTH TWICE A DAY [facility] ondansetron (ZOFRAN) 4 mg tablet 02-09 20:05: 01 Yes 4mg Take 4 mg by mouth every 8 (eight) hours as needed. [facility] pantoprazol e (PROTONIX) 40 mg EC tablet 02-09 20:05: 01 Yes 40mg Take 40 mg by mouth daily. [facility] ondansetron (ZOFRAN) 4 mg tablet 02-09 20:05: 01 Yes 4mg Take 4 mg by mouth every 8 (eight) hours as needed. [facility] pantoprazol e (PROTONIX) 40 mg EC tablet 02-09 20:05: 01 Yes 40mg Take 40 mg by mouth daily. [facility] LISINOPRIL- HYDROCHLORO THIAZIDE ORAL 02-09 20:05: 01 Yes Take by mouth. [facility] ondansetron (ZOFRAN) 4 mg tablet 02-09 20:05: 01 Yes 4mg Take 4 mg by mouth every 8 (eight) hours as needed. [facility] pantoprazol e (PROTONIX) 40 mg EC tablet 02-09 20:05: 01 Yes 40mg Take 40 mg by mouth daily. [facility] ondansetron (ZOFRAN) 4 mg tablet 02-09 20:05: 01 Yes 4mg Take 4 mg by mouth every 8 (eight) hours as needed. [facility] pantoprazol e (PROTONIX) 40 mg EC tablet 02-09 20:05: 01 Yes 40mg Take 40 mg by mouth daily. [facility] ondansetron (ZOFRAN) 4 mg tablet 02-09 20:05: 01 Yes 4mg Take 4 mg by mouth every 8 (eight) hours as needed. [facility] pantoprazol e (PROTONIX) 40 mg EC tablet 02-09 20:05: 01 Yes 40mg Take 40 mg by mouth daily. [facility] ondansetron (ZOFRAN) 4 mg tablet 02-09 20:05: 01 Yes 4mg Take 4 mg by mouth every 8 (eight) hours as needed. [facility] pantoprazol e (PROTONIX) 40 mg EC tablet 02-09 20:05: 01 Yes 40mg Take 40 mg by mouth daily. [facility] ondansetron (ZOFRAN) 4 mg tablet 02-09 20:05: 01 Yes 4mg Take 4 mg by mouth every 8 (eight) hours as needed. [facility] pantoprazol e (PROTONIX) 40 mg EC tablet 02-09 20:05: 01 Yes 40mg Take 40 mg by mouth daily. [facility] lisinopril- hydrochloro thiazide 20-12.5 mg per tablet 02-09 20:03: 30 Yes 1{tbl} Take 1 tablet by mouth daily. [facility] lisinopril- hydrochloro thiazide 20-12.5 mg per tablet 02-09 20:03: 30 Yes 1{tbl} Take 1 tablet by mouth daily. [facility] lisinopril- hydrochloro thiazide 20-12.5 mg per tablet 02-09 20:03: 30 Yes 1{tbl} Take 1 tablet by mouth daily. [facility] lisinopril- hydrochloro thiazide 20-12.5 mg per tablet 02-09 20:03: 30 Yes 1{tbl} Take 1 tablet by mouth daily. [facility] lisinopril- hydrochloro thiazide 20-12.5 mg per tablet 02-09 20:03: 30 Yes 1{tbl} Take 1 tablet by mouth daily. [facility] lisinopril- hydrochloro thiazide 20-12.5 mg per tablet 02-09 20:03: 30 Yes 1{tbl} Take 1 tablet by mouth daily. [facility] lisinopril- hydrochloro thiazide 20-12.5 mg per tablet 02-09 20:03: 30 Yes 1{tbl} Take 1 tablet by mouth daily. [facility] omega-3 fatty acids-vitam in E (FISH OIL) 1,000 mg capsule 02-09 19:59: 52 Yes 1g Take 1 g by mouth daily. [facility] omega-3 fatty acids-vitam in E (FISH OIL) 1,000 mg capsule 02-09 19:59: 52 Yes 1g Take 1 g by mouth daily. [facility] omega-3 fatty acids-vitam in E (FISH OIL) 1,000 mg capsule 02-09 19:59: 52 Yes 1g Take 1 g by mouth daily. [facility] omega-3 fatty acids-vitam in E (FISH OIL) 1,000 mg capsule 02-09 19:59: 52 Yes 1g Take 1 g by mouth daily. [facility] omega-3 fatty acids-vitam in E (FISH OIL) 1,000 mg capsule 02-09 19:59: 52 Yes 1g Take 1 g by mouth daily. [facility] omega-3 fatty acids-vitam in E (FISH OIL) 1,000 mg capsule 02-09 19:59: 52 Yes 1g Take 1 g by mouth daily. [facility] omega-3 fatty acids-vitam in E (FISH OIL) 1,000 mg capsule 02-09 19:59: 52 Yes 1g Take 1 g by mouth daily. [facility] MULTIVITAMI N ORAL 02-09 19:58: 14 Yes 1{tbl} Take 1 Tab by mouth daily. [facility] loratadine (CLARITIN LIQUI-GEL) 10 mg capsule 02-09 19:58: 14 Yes Take by mouth daily. [facility] MULTIVITAMI N ORAL 02-09 19:58: 14 Yes 1{tbl} Take 1 Tab by mouth daily. [facility] loratadine (CLARITIN LIQUI-GEL) 10 mg capsule 02-09 19:58: 14 Yes Take by mouth daily. [facility] 19:58: 14 Yes 1{tbl} Take 1 Tab by mouth daily. [facility] loratadine (CLARITIN LIQUI-GEL) 10 mg capsule 02-09 19:58: 14 Yes Take by mouth daily. [facility] 19:58: 14 Yes 1{tbl} Take 1 Tab by mouth daily. [facility] loratadine (CLARITIN LIQUI-GEL) 10 mg capsule 02-09 19:58: 14 Yes Take by mouth daily. [facility] MULTIVITAMI N ORAL 02-09 19:58: 14 Yes 1{tbl} Take 1 Tab by mouth daily. [facility] loratadine (CLARITIN LIQUI-GEL) 10 mg capsule 02-09 19:58: 14 Yes Take by mouth daily. [facility] MULTIVITAMI N ORAL 02-09 19:58: 14 Yes 1{tbl} Take 1 Tab by mouth daily. [facility] loratadine (CLARITIN LIQUI-GEL) 10 mg capsule 02-09 19:58: 14 Yes Take by mouth daily. [facility] MULTIVITAMI N ORAL 02-09 19:58: 14 Yes 1{tbl} Take 1 Tab by mouth daily. [facility] loratadine (CLARITIN LIQUI-GEL) 10 mg capsule 02-09 19:58: 14 Yes Take by mouth daily. [facility] ondansetron (ZOFRAN) 4 mg tablet 02-09 15:05: 01 Yes 4mg Take 4 mg by mouth every 8 (eight) hours as needed. [facility] pantoprazol e (PROTONIX) 40 mg EC tablet 02-09 15:05: 01 Yes 40mg Take 40 mg by mouth daily. [facility] ondansetron (ZOFRAN) 4 mg tablet 02-09 15:05: 01 Yes 4mg Take 4 mg by mouth every 8 (eight) hours as needed. [facility] pantoprazol e (PROTONIX) 40 mg EC tablet 02-09 15:05: 01 Yes 40mg Take 40 mg by mouth daily. [facility] ondansetron (ZOFRAN) 4 mg tablet 02-09 15:05: 01 Yes 4mg Take 4 mg by mouth every 8 (eight) hours as needed. [facility] pantoprazol e (PROTONIX) 40 mg EC tablet 02-09 15:05: 01 Yes 40mg Take 40 mg by mouth daily. [facility] ondansetron (ZOFRAN) 4 mg tablet 02-09 15:05: 01 Yes 4mg Take 4 mg by mouth every 8 (eight) hours as needed. [facility] pantoprazol e (PROTONIX) 40 mg EC tablet 02-09 15:05: 01 Yes 40mg Take 40 mg by mouth daily. [facility] ondansetron (ZOFRAN) 4 mg tablet 02-09 15:05: 01 Yes 4mg Take 4 mg by mouth every 8 (eight) hours as needed. [facility] pantoprazol e (PROTONIX) 40 mg EC tablet 02-09 15:05: 01 Yes 40mg Take 40 mg by mouth daily. [facility] lisinopril- hydrochloro thiazide 20-12.5 mg per tablet 02-09 15:03: 30 Yes 1{tbl} Take 1 tablet by mouth daily. [facility] lisinopril- hydrochloro thiazide 20-12.5 mg per tablet 02-09 15:03: 30 Yes 1{tbl} Take 1 tablet by mouth daily. [facility] lisinopril- hydrochloro thiazide 20-12.5 mg per tablet 02-09 15:03: 30 Yes 1{tbl} Take 1 tablet by mouth daily. [facility] lisinopril- hydrochloro thiazide 20-12.5 mg per tablet 02-09 15:03: 30 Yes 1{tbl} Take 1 tablet by mouth daily. [facility] lisinopril- hydrochloro thiazide 20-12.5 mg per tablet 02-09 15:03: 30 Yes 1{tbl} Take 1 tablet by mouth daily. [facility] omega-3 fatty acids-vitam in E (FISH OIL) 1,000 mg capsule 02-09 14:59: 52 Yes 1g Take 1 g by mouth daily. [facility] omega-3 fatty acids-vitam in E (FISH OIL) 1,000 mg capsule 02-09 14:59: 52 Yes 1g Take 1 g by mouth daily. [facility] omega-3 fatty acids-vitam in E (FISH OIL) 1,000 mg capsule 02-09 14:59: 52 Yes 1g Take 1 g by mouth daily. [facility] omega-3 fatty acids-vitam in E (FISH OIL) 1,000 mg capsule 02-09 14:59: 52 Yes 1g Take 1 g by mouth daily. [facility] omega-3 fatty acids-vitam in E (FISH OIL) 1,000 mg capsule 02-09 14:59: 52 Yes 1g Take 1 g by mouth daily. [facility] MULTIVITAMI N ORAL 02-09 14:58: 14 Yes 1{tbl} Take 1 Tab by mouth daily. [facility] loratadine (CLARITIN LIQUI-GEL) 10 mg capsule 02-09 14:58: 14 Yes Take by mouth daily. [facility] MULTIVITAMI N ORAL 02-09 14:58: 14 Yes 1{tbl} Take 1 Tab by mouth daily. [facility] loratadine (CLARITIN LIQUI-GEL) 10 mg capsule 02-09 14:58: 14 Yes Take by mouth daily. [facility] MULTIVITAMI N ORAL 02-09 14:58: 14 Yes 1{tbl} Take 1 Tab by mouth daily. [facility] loratadine (CLARITIN LIQUI-GEL) 10 mg capsule 02-09 14:58: 14 Yes Take by mouth daily. [facility] MULTIVITAMI N ORAL 02-09 14:58: 14 Yes 1{tbl} Take 1 Tab by mouth daily. [facility] loratadine (CLARITIN LIQUI-GEL) 10 mg capsule 02-09 14:58: 14 Yes Take by mouth daily. [facility] 02-09 14:58: 14 Yes 1{tbl} Take 1 Tab by mouth daily. [facility] loratadine (CLARITIN LIQUI-GEL) 10 mg capsule 02-09 14:58: 14 Yes Take by mouth daily. [facility] proMETHazin e (PHENERGAN) 25 mg tablet 11-20 00:00: 00 Yes 25mg Take 1 tablet by mouth every 6 (six) hours as needed for Nausea and Vomiting (N/V). [facility] proMETHazin e (PHENERGAN) 25 mg tablet 11-20 00:00: 00 02-19 00:00 :00 No 25mg Take 1 tablet by mouth every 6 (six) hours as needed for Nausea and Vomiting (N/V). [facility] carvedilol (COREG) 6.25 mg tablet 09-19 00:00: 00 Yes 6.25mg Take 1 Tab by mouth 2 (two) times daily with meals. [facility] amLODIPine (NORVASC) 10 mg tablet 09-19 00:00: 00 Yes 10mg Take 1 Tab by mouth daily. [facility] lisinopril (PRINIVIL,Z ESTRIL) 40 mg tablet 09-19 00:00: 00 Yes 40mg Take 1 Tab by mouth daily. [facility] carvedilol (COREG) 6.25 mg tablet 09-19 00:00: 00 Yes 6.25mg Take 1 Tab by mouth 2 (two) times daily with meals. [facility] amLODIPine (NORVASC) 10 mg tablet 09-19 00:00: 00 Yes 10mg Take 1 Tab by mouth daily. [facility] lisinopril (PRINIVIL,Z ESTRIL) 40 mg tablet 09-19 00:00: 00 Yes 40mg Take 1 Tab by mouth daily. [facility] carvedilol (COREG) 6.25 mg tablet 09-19 00:00: 00 Yes 6.25mg Take 1 Tab by mouth 2 (two) times daily with meals. [facility] amLODIPine (NORVASC) 10 mg tablet 09-19 00:00: 00 Yes 10mg Take 1 Tab by mouth daily. [facility] lisinopril (PRINIVIL,Z ESTRIL) 40 mg tablet 09-19 00:00: 00 Yes 40mg Take 1 Tab by mouth daily. [facility] carvedilol (COREG) 6.25 mg tablet 09-19 00:00: 00 Yes 6.25mg Take 1 Tab by mouth 2 (two) times daily with meals. [facility] amLODIPine (NORVASC) 10 mg tablet 09-19 00:00: 00 Yes 10mg Take 1 Tab by mouth daily. [facility] lisinopril (PRINIVIL,Z ESTRIL) 40 mg tablet 09-19 00:00: 00 Yes 40mg Take 1 Tab by mouth daily. [facility] carvedilol (COREG) 6.25 mg tablet 09-19 00:00: 00 Yes 6.25mg Take 1 Tab by mouth 2 (two) times daily with meals. [facility] amLODIPine (NORVASC) 10 mg tablet 09-19 00:00: 00 Yes 10mg Take 1 Tab by mouth daily. [facility] lisinopril (PRINIVIL,Z ESTRIL) 40 mg tablet 09-19 00:00: 00 Yes 40mg Take 1 Tab by mouth daily. [facility] carvedilol (COREG) 6.25 mg tablet 09-19 00:00: 00 Yes 6.25mg Take 1 Tab by mouth 2 (two) times daily with meals. [facility] amLODIPine (NORVASC) 10 mg tablet 09-19 00:00: 00 Yes 10mg Take 1 Tab by mouth daily. [facility] lisinopril (PRINIVIL,Z ESTRIL) 40 mg tablet 09-19 00:00: 00 Yes 40mg Take 1 Tab by mouth daily. [facility] carvedilol (COREG) 6.25 mg tablet 09-19 00:00: 00 Yes 6.25mg Take 1 Tab by mouth 2 (two) times daily with meals. [facility] amLODIPine (NORVASC) 10 mg tablet 09-19 00:00: 00 Yes 10mg Take 1 Tab by mouth daily. [facility] lisinopril (PRINIVIL,Z ESTRIL) 40 mg tablet 09-19 00:00: 00 Yes 40mg Take 1 Tab by mouth daily. [facility] carvedilol (COREG) 6.25 mg tablet 09-19 00:00: 00 Yes 6.25mg Take 1 Tab by mouth 2 (two) times daily with meals. [facility] amLODIPine (NORVASC) 10 mg tablet 09-19 00:00: 00 Yes 10mg Take 1 Tab by mouth daily. [facility] lisinopril (PRINIVIL,Z ESTRIL) 40 mg tablet 09-19 00:00: 00 Yes 40mg Take 1 Tab by mouth daily. [facility] carvedilol (COREG) 6.25 mg tablet 09-19 00:00: 00 Yes 6.25mg Take 1 Tab by mouth 2 (two) times daily with meals. [facility] amLODIPine (NORVASC) 10 mg tablet 09-19 00:00: 00 Yes 10mg Take 1 Tab by mouth daily. [facility] lisinopril (PRINIVIL,Z ESTRIL) 40 mg tablet 09-19 00:00: 00 Yes 40mg Take 1 Tab by mouth daily. [facility] carvedilol (COREG) 6.25 mg tablet 09-19 00:00: 00 Yes 6.25mg Take 1 Tab by mouth 2 (two) times daily with meals. [facility] amLODIPine (NORVASC) 10 mg tablet 09-19 00:00: 00 Yes 10mg Take 1 Tab by mouth daily. [facility] lisinopril (PRINIVIL,Z ESTRIL) 40 mg tablet 09-19 00:00: 00 Yes 40mg Take 1 Tab by mouth daily. [facility] carvedilol (COREG) 6.25 mg tablet 09-19 00:00: 00 Yes 6.25mg Take 1 Tab by mouth 2 (two) times daily with meals. [facility] amLODIPine (NORVASC) 10 mg tablet 09-19 00:00: 00 Yes 10mg Take 1 Tab by mouth daily. [facility] lisinopril (PRINIVIL,Z ESTRIL) 40 mg tablet 09-19 00:00: 00 Yes 40mg Take 1 Tab by mouth daily. [facility] carvedilol (COREG) 6.25 mg tablet 09-19 00:00: 00 Yes 6.25mg Take 1 Tab by mouth 2 (two) times daily with meals. [facility] amLODIPine (NORVASC) 10 mg tablet 09-19 00:00: 00 Yes 10mg Take 1 Tab by mouth daily. [facility] lisinopril (PRINIVIL,Z ESTRIL) 40 mg tablet 09-19 00:00: 00 Yes 40mg Take 1 Tab by mouth daily. [facility] carvedilol (COREG) 6.25 mg tablet 09-19 00:00: 00 Yes 6.25mg Take 1 Tab by mouth 2 (two) times daily with meals. [facility] amLODIPine (NORVASC) 10 mg tablet 09-19 00:00: 00 Yes 10mg Take 1 Tab by mouth daily. [facility] lisinopril (PRINIVIL,Z ESTRIL) 40 mg tablet 09-19 00:00: 00 Yes 40mg Take 1 Tab by mouth daily. [facility] carvedilol (COREG) 6.25 mg tablet 09-19 00:00: 00 Yes 6.25mg Take 1 Tab by mouth 2 (two) times daily with meals. [facility] amLODIPine (NORVASC) 10 mg tablet 09-19 00:00: 00 Yes 10mg Take 1 Tab by mouth daily. [facility] lisinopril (PRINIVIL,Z ESTRIL) 40 mg tablet 09-19 00:00: 00 Yes 40mg Take 1 Tab by mouth daily. [facility] carvedilol (COREG) 6.25 mg tablet 09-19 00:00: 00 Yes 6.25mg Take 1 Tab by mouth 2 (two) times daily with meals. [facility] amLODIPine (NORVASC) 10 mg tablet 09-19 00:00: 00 Yes 10mg Take 1 Tab by mouth daily. [facility] lisinopril (PRINIVIL,Z ESTRIL) 40 mg tablet 09-19 00:00: 00 Yes 40mg Take 1 Tab by mouth daily. [facility] carvedilol (COREG) 6.25 mg tablet 09-19 00:00: 00 Yes 6.25mg Take 1 Tab by mouth 2 (two) times daily with meals. [facility] amLODIPine (NORVASC) 10 mg tablet 09-19 00:00: 00 Yes 10mg Take 1 Tab by mouth daily. [facility] lisinopril (PRINIVIL,Z ESTRIL) 40 mg tablet 09-19 00:00: 00 Yes 40mg Take 1 Tab by mouth daily. [facility] carvedilol (COREG) 6.25 mg tablet 09-19 00:00: 00 Yes 6.25mg Take 1 Tab by mouth 2 (two) times daily with meals. [facility] amLODIPine (NORVASC) 10 mg tablet 09-19 00:00: 00 Yes 10mg Take 1 Tab by mouth daily. [facility] lisinopril (PRINIVIL,Z ESTRIL) 40 mg tablet 09-19 00:00: 00 Yes 40mg Take 1 Tab by mouth daily. [facility] carvedilol (COREG) 6.25 mg tablet 09-19 00:00: 00 Yes 6.25mg Take 1 Tab by mouth 2 (two) times daily with meals. [facility] amLODIPine (NORVASC) 10 mg tablet 09-19 00:00: 00 Yes 10mg Take 1 Tab by mouth daily. [facility] lisinopril (PRINIVIL,Z ESTRIL) 40 mg tablet 09-19 00:00: 00 Yes 40mg Take 1 Tab by mouth daily. [facility] carvedilol (COREG) 6.25 mg tablet 09-19 00:00: 00 Yes 6.25mg Take 1 Tab by mouth 2 (two) times daily with meals. [facility] amLODIPine (NORVASC) 10 mg tablet 09-19 00:00: 00 Yes 10mg Take 1 Tab by mouth daily. [facility] lisinopril (PRINIVIL,Z ESTRIL) 40 mg tablet 09-19 00:00: 00 Yes 40mg Take 1 Tab by mouth daily. [facility] carvedilol (COREG) 6.25 mg tablet 09-19 00:00: 00 Yes 6.25mg Take 1 Tab by mouth 2 (two) times daily with meals. [facility] amLODIPine (NORVASC) 10 mg tablet 09-19 00:00: 00 Yes 10mg Take 1 Tab by mouth daily. [facility] lisinopril (PRINIVIL,Z ESTRIL) 40 mg tablet 09-19 00:00: 00 Yes 40mg Take 1 Tab by mouth daily. [facility] Vital Signs Vital Name Observation Time [...] Systolic blood pressure 2022-12-11 20:00:00 142 mm[Hg] [facility] Diastolic blood pressure 2022-12-11 20:00:00 90 mm[Hg] [facility] Respiratory rate 2022-12-11 20:00:00 24 /min [facility] Heart rate 2022-12-11 18:00:00 101 /min [facility] Oxygen saturation in Arterial blood by Pulse oximetry 2022-12-11 18:00:00 93 /min [facility] BMI 2022-12-11 13:55:00 35.43 kg/m2 [facility] Body temperature 2022-12-11 13:55:00 37.22 [facility] Body weight 2022-12-11 13:55:00 90.719 kg [facility] Systolic blood pressure 2022-11-18 05:34:00 152 mm[Hg] [facility] Diastolic blood pressure 2022-11-18 05:34:00 98 mm[Hg] [facility] Heart rate 2022-11-18 05:34:00 88 /min [facility] Respiratory rate 2022-11-18 05:34:00 18 /min [facility] Oxygen saturation in Arterial blood by Pulse oximetry 2022-11-18 05:34:00 97 /min [facility] Body temperature 2022-11-17 22:28:00 37.06 Radha [facility] Body height 2022-11-17 22:28:00 160 cm [facility] Body weight 2022-11-17 22:28:00 99.791 kg [facility] BMI 2022-11-17 22:28:00 38.97 kg/m2 [facility] Heart rate 2022-08-02 02:02:00 108 /min [facility] Respiratory rate 2022-08-02 02:02:00 28 /min [facility] Oxygen saturation in Arterial blood by Pulse oximetry 2022-08-02 02:02:00 97 /min [facility] Body temperature 2022-08-02 01:00:00 36.44 Rad[facility] Systolic blood pressure 2022-08-01 23:29:00 145 mm[Hg] [facility] Diastolic blood pressure 2022-08-01 23:29:00 103 mm[Hg] [facility] Body weight 2022-08-01 09:16:00 97.977 kg [facility] BMI 2022-08-01 09:16:00 38.26 kg/m2 [facility] Body height 2022-07-31 21:54:00 160 cm [facility] Systolic blood pressure 2022-05-08 16:40:00 146 mm[Hg] [facility] Diastolic blood pressure 2022-05-08 16:40:00 96 mm[Hg] [facility] Heart rate 2022-05-08 16:40:00 112 /min [facility] Body temperature 2022-05-08 16:40:00 36.78 Rad[facility] Respiratory rate 2022-05-08 16:40:00 18 /min [facility] Oxygen saturation in Arterial blood by Pulse oximetry 2022-05-08 16:40:00 94 /min [facility] Body height 2022-05-05 23:44:00 160 cm [facility] Body weight 2022-05-05 23:37:00 81.647 kg [facility] BMI 2022-05-05 23:37:00 31.89 kg/m2 [facility] Systolic blood pressure 2022-04-15 18:52:00 104 mm[Hg] [facility] Diastolic blood pressure 2022-04-15 18:52:00 82 mm[Hg] [facility] Heart rate 2022-04-15 18:52:00 114 /min [facility] Oxygen saturation in Arterial blood by Pulse oximetry 2022-04-15 18:52:00 98 /min [facility] Body temperature 2022-04-15 16:14:00 36.28 Radha [facility] Respiratory rate 2022-04-15 16:14:00 17 /min [facility] Body height 2022-04-13 21:08:00 160 cm [facility] Body weight 2022-04-13 21:08:00 91.173 kg [facility] BMI 2022-04-13 21:08:00 35.61 kg/m2 [facility] Systolic blood pressure 2021-11-23 21:30:00 132 mm[Hg] [facility] Diastolic blood pressure 2021-11-23 21:30:00 76 mm[Hg] [facility] Heart rate 2021-11-23 21:30:00 95 /min [facility] Respiratory rate 2021-11-23 21:30:00 13 /min [facility] Oxygen saturation in Arterial blood by Pulse oximetry 2021-11-23 21:30:00 97 /min [facility] Body temperature 2021-11-23 20:15:00 37.56 Radha [facility] Systolic blood pressure 2021-03-17 03:00:00 117 mm[Hg] [facility] Diastolic blood pressure 2021-03-17 03:00:00 76 mm[Hg] [facility] Heart rate 2021-03-17 03:00:00 104 /min [facility] Respiratory rate 2021-03-17 03:00:00 28 /min [facility] Oxygen saturation in Arterial blood by Pulse oximetry 2021-03-17 03:00:00 96 /min [facility] Body temperature 2021-03-17 00:39:00 37.11 Radha [facility] Body height 2021-03-17 00:39:00 160 cm [facility] Body weight 2021-03-17 00:39:00 58.968 kg [facility] BMI 2021-03-17 00:39:00 23.03 kg/m2 [facility] Systolic blood pressure 2021-03-15 00:14:00 149 mm[Hg] [facility] Diastolic blood pressure 2021-03-15 00:14:00 78 mm[Hg] [facility] Heart rate 2021-03-15 00:14:00 100 /min [facility] Body temperature 2021-03-15 00:14:00 37.33 Radha [facility] Respiratory rate 2021-03-15 00:14:00 24 /min [facility] Body height 2021-03-15 00:14:00 160 cm [facility] Body weight 2021-03-15 00:14:00 58.968 kg [facility] BMI 2021-03-15 00:14:00 23.03 kg/m2 [facility] Oxygen saturation in Arterial blood by Pulse oximetry 2021-03-15 00:14:00 98 /min [facility] Systolic blood pressure 2021-02-19 18:00:00 131 mm[Hg] [facility] Diastolic blood pressure 2021-02-19 18:00:00 80 mm[Hg] [facility] Heart rate 2021-02-19 18:00:00 83 /min [facility] Respiratory rate 2021-02-19 18:00:00 18 /min [facility] Oxygen saturation in Arterial blood by Pulse oximetry 2021-02-19 18:00:00 100 /min [facility] Body temperature 2021-02-19 15:47:00 37 Radha [facility] Body height 2021-02-19 15:47:00 160 cm [facility] Body weight 2021-02-19 15:47:00 58.968 kg [facility] BMI 2021-02-19 15:47:00 23.03 kg/m2 [facility] Heart rate 2023-06-16 17:00:00 108 /min [facility] Systolic blood pressure 2023-06-16 15:31:00 101 mm[Hg] [facility] Diastolic blood pressure 2023-06-16 15:31:00 81 mm[Hg] [facility] [place] temperature 2023-06-16 15:31:00 36.61 Radha [facility] Respiratory rate 2023-06-16 15:31:00 18 /min [facility] [place] saturation in Arterial blood by Pulse oximetry 2023-06-16 15:31:00 94 /min [facility] Body weight 2023-06-16 05:26:00 86.047 kg [facility] BMI 2023-06-16 05:26:00 33.60 kg/m2 [facility] Body height 2023-06-13 04:00:00 160 cm [facility] Systolic blood pressure 2023-06-04 13:02:00 93 mm[Hg] [facility] Diastolic blood pressure 2023-06-04 13:02:00 57 mm[Hg] [facility] Heart rate 2023-06-04 13:02:00 101 /min [facility] Respiratory rate 2023-06-04 13:02:00 22 /min [facility] Oxygen saturation in Arterial blood by Pulse oximetry 2023-06-04 13:02:00 95 /min room air [facility] Body temperature 2023-06-04 11:46:00 35.28 Radha [facility] Systolic blood pressure 2023-05-28 16:00:00 154 mm[Hg] [facility] Diastolic blood pressure 2023-05-28 16:00:00 82 mm[Hg] [facility] Heart rate 2023-05-28 16:00:00 89 /min [facility] Body temperature 2023-05-28 16:00:00 36.67 Radha [facility] Respiratory rate 2023-05-28 16:00:00 16 /min [facility] Oxygen saturation in Arterial blood by Pulse oximetry 2023-05-28 16:00:00 97 /min [facility] Body height 2023-05-28 07:00:00 157.5 cm [facility] Body weight 2023-05-28 07:00:00 87.544 kg [facility] BMI 2023-05-28 07:00:00 35.30 kg/m2 [facility] Body height 2023-05-26 09:12:00 157.5 cm [facility] Body weight 2023-05-26 09:12:00 87.091 kg [facility] BMI 2023-05-26 09:12:00 35.12 kg/m2 [facility] Respiratory rate 2023-04-02 16:35:00 18 /min [facility] Oxygen saturation in Arterial blood by Pulse oximetry 2023-04-02 16:35:00 98 /min [facility] Systolic blood pressure 2023-04-02 12:00:00 147 mm[Hg] [facility] Diastolic blood pressure 2023-04-02 12:00:00 97 mm[Hg] [facility] Heart rate 2023-04-02 12:00:00 106 /min [facility] Body temperature 2023-04-02 12:00:00 36.28 Radha [facility] Body height 2023-03-30 02:14:00 157.5 cm [facility] Body weight 2023-03-30 02:14:00 92.08 kg [facility] BMI 2023-03-30 02:14:00 37.13 kg/m2 [facility] Respiratory rate 2022-08-03 14:40:00 18 /min [facility] Systolic blood pressure 2022-08-03 12:13:00 112 mm[Hg] [facility] Diastolic blood pressure 2022-08-03 12:13:00 77 mm[Hg] [facility] Heart rate 2022-08-03 12:13:00 115 /min [facility] Oxygen saturation in Arterial blood by Pulse oximetry 2022-08-03 12:13:00 93 /min [facility] Body temperature 2022-08-03 12:00:00 36.83 Radha [facility] Body height 2022-08-02 21:52:00 160.2 cm [facility] Body weight 2022-08-02 21:52:00 95 kg [facility] BMI 2022-08-02 21:52:00 37.02 kg/m2 [facility] BP Systolic 2022-07-24 13:31:00 136 mm[Hg] BP [...] Performing Clinician Source TRANSESOPHAGEAL ECHO 2023-06-16 11:05:00 [facility] T SPOT TB 2023-06-15 04:51:00 [facility] FUNGITELL R B-D-GLUCAN WITH REFLEX TO TITER 2023-06-15 04:51:00 [facility]y [facility] ASPERGILLUS GALACTOMANNAN ANTIGEN 2023-06-15 04:51:00 [facility] VANCOMYCIN LEVEL, TROUGH 2023-06-15 04:51:00 Kaylene Mendosa [facility] T-SPOT(R).TB (QUEST) 2023-06-15 04:27:00 System, Provider Not In [facility] ECHO W CONTRAST & DOPPLER 2023-06-14 09:22:00 [facility] HEMOGLOBIN A1C 2023-06-14 04:08:00 Cara Burgess [facility] CBC (HEMOGRAM ONLY) 2023-06-14 04:08:00 [facility] BASIC METABOLIC PANEL 2023-06-14 04:08:00 [facility] CRYPTOCOCCAL ANTIGEN 2023-06-13 17:21[facility]00 [facility] W/HIV-1&2 AB 2023-06-13 17:21:00 [facility] VENOUS DOPPLER ARM, LEFT 2023-06-13 17:20:00 Cara Burgess [facility] LEGIONELLA ANTIGEN, URINE 2023-06-13 17:00:00 [facility] SPUTUM CULTURE + GRAM STAIN 2023-06-13 14:33:00 Abbi [facility] MR LUMBAR SPINE WITH & WITHOUT IV CONTRAST 2023-06-13 13:03:47 Burt Nelson [facility] ECG 12-LEAD 2023-06-13 11:47:02 Abbi [facility] ECG 12-LEAD 2023-06-13 11:47:02 Unknown, Hl7 Doctor [facility] MRSA SCREEN 2023-06-13 09:19:00 Torreyangelia [facility] CBC W/PLT COUNT & AUTO DIFFERENTIAL 2023-06-13 06:03:00 Cara Burgess [facility] COMPREHENSIVE METABOLIC PANEL 2023-06-13 06:03:00 Cara Burgess [facility] PROTHROMBIN TIME/INR 2023-06-13 06:03:00 Cara Burgess [facility] CREATINE KINASE (CK) 2023-06-13 06:03:00 Abbi [facility] CBC W/PLT COUNT & AUTO DIFFERENTIAL 2023-06-13 06:03:00 Cara Burgess [facility] BLOOD CULTURE 2023-06-13 06:02:00 Cara Burgess [facility] CBC W/PLT COUNT & AUTO DIFFERENTIAL 2023-06-02 04:41:00 Sunil Chu [facility] BASIC METABOLIC PANEL 2023-06-02 04:41:00 Sunil Chu [facility] MAGNESIUM 2023-06-02 04:41:00 Sunil Chu [facility] PHOSPHORUS 2023-06-02 04:41:00 Sunil Chu [facility] CBC W/PLT COUNT & AUTO DIFFERENTIAL 2023-06-02 04:41:00 Sunil Chu [facility] XR SPINE LUMBAR 1 VIEW 2023-06-01 10:31:00 Adam Garcia [facility] XR SPINE LUMBAR 1 VIEW 2023-06-01 09:46:00 Jose Adam C [facility] LAMINECTOMY, SPINE, LUMBAR 2023-06-01 09:10:00 [place] [facility] PROCEDURE W/ C-ARM 2023-06-01 09:10:00 [place] [facility] LAMINECTOMY, SPINE, LUMBAR 2023-06-01 07:30:00 [place] [facility] PROCEDURE W/ C-ARM 2023-06-01 07:30:00 [place] [facility] SCREEN, URINE 2023-06-01 04:33:00 [place] [facility] BASIC METABOLIC PANEL 2023-05-31 22:55:00 [facility] CBC W/PLT COUNT & AUTO DIFFERENTIAL 2023-05-31 22:55:00 [facility] PT/APTT 2023-05-31 22:55:00 Patricia [facility] CBC W/PLT COUNT & AUTO DIFFERENTIAL 2023-05-31 22:55:00 Dallas Gomez [facility] CT NECK SOFT TISSUE WITHOUT IV CONTRAST 2023-05-31 09:39:30 [facility] TYPE AND SCREEN, AUTOMATED 2023-05-31 09:13:00 Omar [facility] BASIC METABOLIC PANEL 2023-05-29 06:43:00 Burt Nelson [facility] CBC W/PLT COUNT & AUTO DIFFERENTIAL 2023-05-29 06:43:00 [facility] CBC W/PLT COUNT & AUTO DIFFERENTIAL 2023-05-29 06:43:00 [facility] XR SPINE CERVICAL 2 OR 3 VIEWS 2023-05-28 18:57:00 [facility] FL FLUORO NON-SPECIFIC UP TO 1 HOUR 2023-05-28 10:48:00 Jose Adam [facility] FL FLUORO NON-SPECIFIC UP TO 1 HOUR 2023-05-28 10:07:00 Jose [facility] DISCECTOMY, SPINE, CERVICAL, ANTERIOR APPROACH, WITH FUSION 2023-05-28 08:15:00 [place] [facility] INSERTION, HARDWARE, SPINAL 2023-05-28 08:15:00 Jose [facility] PROCEDURE, ALLOGRAFT, FOR SPINE SURGERY 2023-05-28 08:15:00 Jose [facility] AUTOGRAFT FOR SPINE SURGERY 2023-05-28 08:15:00 [facility] PROCEDURE W/ C-ARM 2023-05-28 08:15:00 [place] [facility] NEUROPHYSIOLOGIC MONITORING, INTRAOPERATIVE 2023-05-28 08:15:00 [place] [facility] PROCEDURE, USING OPERATING MICROSCOPE 2023-05-28 08:15:00 [place] [facility] HCG, QUANTITATIVE, 2023-05-28 07:42:00 Yue Bui [facility] TYPE AND SCREEN, AUTOMATED 2023-05-28 07:42:00 Quin Scruggs [facility] XR CHEST 1 VIEW PORTABLE / BEDSIDE 2023-04-01 15:32:16 [facility] B-TYPE NATRIURETIC FACTOR (BNP) 2023-04-01 13:32:00 Thomas Lozoya [facility] ECHO W CONTRAST & DOPPLER 2023-03-31 20:18:[address] [facility] MR CERVICAL SPINE WITHOUT IV CONTRAST 2023-03-31 09:25:00 Selin Lewis [facility] CBC (HEMOGRAM ONLY) 2023-03-31 03:45:[address] [facility] COMPREHENSIVE METABOLIC PANEL 2023-03-31 03:45:[address] [facility] ARTERIAL DOPPLER LEGS BILATERAL 2023-03-30 15:45:[address] [facility] ARTERIAL (ALEISHA'S W/ DOPPLER) ONLY 2023-03-30 15:44:[address] [facility] ECG 12-LEAD 2023-03-30 13:06:[address] [facility] ECG 12-LEAD 2023-03-30 13:06:22 Unknown, Hl7 [facility] MR THORACIC SPINE WITHOUT IV CONTRAST 2023-03-30 12:29:58 Eric, [facility] MR LUMBAR SPINE WITHOUT IV CONTRAST 2023-03-30 11:58:00 Eric [facility] EEG AWAKE AND DROWSY 2023-03-30 09:57:53 Berry [facility] VALPROIC ACID LEVEL, TOTAL 2023-03-30 09:06:00 [facility] URINE CULTURE 2023-03-30 03:54:00 Eric [facility] CBC (HEMOGRAM ONLY) 2023-03-30 03:52:[address] [facility] COMPREHENSIVE METABOLIC PANEL 2023-03-30 03:52:00 [facility] HEMOGLOBIN A1C 2023-03-30 03:52:00 [facility] PT/APTT 2023-03-30 03:52:00 Thomas Lozoya [facility] EKG-SCANNED 2023-03-29 00:00:00 Provider, Default Scanning [facility] HEAD WO CONTRAST 2022-12-11 18:36:49 Alfonso Alvarado [facility] URINE DRUG (IMMUNOASSAY) - COMPREHENSIVE DRUG SCREEN 2022-12-11 17:13:00 Alfonso Alvarado [facility] URINALYSIS 2022-12-11 17:13:00 Alfonso Alvarado [facility] CT CHEST PULMONARY ANGIOGRAM 2022-12-11 16:26:39 Alfonso Alvarado [facility] MAGNESIUM 2022-12-11 14:57:00 Alfonso Alvarado [facility] COMP. METABOLIC PANEL (75152) 2022-12-11 14:57:00 Alfonso Alvarado [facility] D-DIMER 2022-12-11 14:15:00 Alfonso Alvarado [facility] XR CHEST 1 VW 2022-12-11 14:10:26 Alfonso Alvarado [facility] TROPONIN I 2022-12-11 14:02:00 Alfonso Alvarado [facility] CBC WITH DIFF 2022-12-11 14:02:00 Alfonso Alvarado Lorelei [facility] N-TERMINAL PRO-BNP 2022-12-11 14:02:00 Alfonso Alvarado [facility] HB ECG ROUTINE & RHYTHM STRIP 2022-12-11 14:01:08 Alfonso Alvarado Lorelei [facility] CONSENT/REFUSAL FOR DIAGNOSI S AND TREATMENT 2022-12-11 13:52:01 Doctor Unassigned, [place] [facility] ECG 12-LEAD 2022-08-03 05:03:32 Unknown, Hl7 Doctor [facility] ECG 12-LEAD 2022-08-03 05:03:32 Unknown, Hl7 Doctor [facility] LIPID PANEL 2022-08-02 21:14:00 [facility] TSH/FREE T4 IF INDICATED 2022-08-02 21:14:00 [facility] VITAMIN B12 2022-08-02 21:14:00 Campbell [facility] HEMOGLOBIN A1C 2022-08-02 21:14:00 Campbell [facility] COMPREHENSIVE METABOLIC PANEL 2022-08-02 21:14:00 Campbell [facility] CBC W/PLT COUNT & AUTO DIFFERENTIAL 2022-08-02 21:14:00 [facility] RPR 2022-08-02 21:14:00 Campbell [facility] HC LAB HIV-1 AG W/HIV-1&2 AB 2022-08-02 21:14:00 Hightower, Peter [facility] C-REACTIVE PROTEIN 2022-08-02 21:14:00 Donaldo Hightower [facility] CBC W/PLT COUNT & AUTO DIFFERENTIAL 2022-08-02 21:14:00 Donaldo Hightower [facility] EKG-SCANNED 2022-08-02 00:00:00 Provider, Default Scanning [facility] HEAD WO CONTRAST 2022-08-01 23:52:15 Lorenza Lowry [facility] GALV ONLY - INFLUENZA A B RS V PCR 2022-08-01 18:28:00 Letitia Chambers [facility] TRANSTHORACIC ECHO (TTE) COMPLETE W/ CONTRAST 2022-08-01 14:42:00 Kylee Montez [facility] MAGNESIUM 2022-08-01 10:42:00 [facility] BASIC METABOLIC PANEL (NA, K , CL, CO2, GLUCOSE, BUN, CREATININE, CA) 2022-08-01 10:42:00 [facility] CBC WITH DIFF 2022-08-01 10:42:00 [facility] N-TERMINAL PRO-BNP 2022-08-01 10:42:00 [facility] (AUTOMATED) 2022-08-01 06:56:00 [facility] CRITICAL CARE 2022-07-31 22:31:36 [facility] URINALYSIS 2022-07-31 20:52:00 [facility] URINE DRUG (IMMUNOASSAY) - COMPREHENSIVE DRUG SCREEN W/O REFLEX 2022-07-31 20:52:00 [facility] XR CHEST 1 VW 2022-07-31 18:45:17 Sav Rondon [facility] LIPASE 2022-07-31 17:58:00 [facility] TROPONIN I 2022-07-31 17:58:00 [facility] COMP. METABOLIC PANEL ([id number]) 2022-07-31 17:58:00 [facility] 2022-07-31 17:58:00 Sav Rondon [facility] PROTHROMBIN TIME / INR 2022-07-31 17:58:00 Sav Rondon [facility] ACTIVATED PARTIAL THRMPLAS DAVID 2022-07-31 17:58:00 Sav Rondon [facility] N-TERMINAL PRO-BNP 2022-07-31 17:58:00 Sav Rondon [facility] HB ECG ROUTINE & RHYTHM STRIP 2022-07-31 17:46:28 Sav Rondon [facility] NOTICE OF PRIVACY PRACTICES 2022-07-31 17:35:38 Doctor Unassigned, [place] [facility] CONSENT/REFUSAL FOR DIAGNOSI S AND TREATMENT 2022-07-31 17:35:13 Doctor Unassigned, [place] [facility] PHOSPHORUS 2022-05-08 05:51:00 Shefali Azeem [facility] MAGNESIUM 2022-05-08 05:51:00 Shefali [facility] BASIC METABOLIC PANEL (NA, K , CL, CO2, GLUCOSE, BUN, CREATININE, CA) 2022-05-08 05:51:00 Shefali [facility] CBC WITH DIFF 2022-05-08 05:51:00 Shefali [facility] BASIC METABOLIC PANEL (NA, K , CL, CO2, GLUCOSE, BUN, CREATININE, CA) 2022-05-07 07:09:00 John Cintron [facility] CBC WITH DIFF 2022-05-07 07:09:00 John Cintron [facility] POCT GLUCOSE (AUTOMATED) 2022-05-07 01:16:00 Brandyn Ibrahim [facility] HB ABO GROUPING 2022-05-06 05:07:00 Isamel Dunn [facility] BASIC METABOLIC PANEL (NA, K , CL, CO2, GLUCOSE, BUN, CREATININE, CA) 2022-05-06 05:04:00 Shefali [facility] CBC WITH DIFF 2022-05-06 05:04:00 Shefali Azeem [facility] KEPPRA (LEVETIRACETAM) 2022-05-06 05:04:00 Azeem Meehan [facility] MR LUMBAR SPINE WO CONTRAST 2022-05-06 02:54:37 Ender Monet [facility] ELECTROENCEPHALOGRAM 2022-05-06 00:00:00 John Cintron [facility] BASIC METABOLIC PANEL (NA, K , CL, CO2, GLUCOSE, BUN, CREATININE, CA) 2022-05-05 07:57:00 [facility] 2022-05-05 07:57:00 Ismael Dunn [facility] PROTHROMBIN TIME / INR 2022-05-05 07:57:00 Ismael Dunn [facility] ACTIVATED PARTIAL THRMPLAS DAVID 2022-05-05 07:57:00 Ismael Dunn [facility] FIBRINOGEN 2022-05-05 07:57:00 Ismael Dunn [facility] EMERGENCY SERVICES AGREEMENT S AND AUTHORIZATIONS 2022-05-04 05:01:00 Doctor Unassigned, [place] [facility] VITAMIN D, 25-OH 2022-04-15 16:53:00 Sen [place] [facility] MR THORACIC SPINE WO CONTRAST 2022-04-15 11:56:19 Harshil [facility] MR CERVICAL SPINE WO CONTRAST 2022-04-15 11:20:00 Harshil [facility] BASIC METABOLIC PANEL (NA, K , CL, CO2, GLUCOSE, BUN, CREATININE, CA) 2022-04-15 10:36:00 Charmaine Morataya [facility] TEST, URINE 2022-04-15 04:39:00 Harshil [facility] URINE DRUG (IMMUNOASSAY) - COMPREHENSIVE DRUG SCREEN 2022-04-15 04:39:00 Harshil [facility] URINALYSIS 2022-04-15 04:39:00 Harshil [facility] TRANSTHORACIC ECHO (TTE) COMPLETE W/ CONTRAST 2022-04-14 16:37:03 Harshil [facility] KEPPRA (LEVETIRACETAM) 2022-04-14 15:30:00 Harshil [facility] MAGNESIUM 2022-04-14 10:03:00 Harshil [facility] BASIC METABOLIC PANEL (NA, K , CL, CO2, GLUCOSE, BUN, CREATININE, CA) 2022-04-14 10:03:00 Harshil [facility] MR LUMBAR SPINE WO CONTRAST 2022-04-14 02:48:12 Harshil [facility] MR STROKE BRAIN WO CONTRAST 2022-04-14 02:29:00 Harshil [facility] CT STROKE ANGIOGRAM HEAD 2022-04-13 18:40:00 Sapna Vargas [facility] CT STROKE ANGIOGRAM NECK 2022-04-13 18:40:00 Sapna Vargas [facility] CT STROKE HEAD WO CONTRAST 2022-04-13 18:36:00 Sapna Vargas [facility] TROPONIN I 2022-04-13 18:17:00 Sapna Vargas [facility] THYROID STIMULATING HORMONE 2022-04-13 18:17:00 Harshil [facility] BASIC METABOLIC PANEL (NA, K , CL, CO2, GLUCOSE, BUN, CREATININE, CA) 2022-04-13 18:17:00 Sapna Vargas [facility] LIPID PANEL ([id number])(TOTAL CHOLESTEROL, TRIGLYCERIDES, HDL) 2022-04-13 18:17:00 Harshil [facility] CBC WITHOUT DIFF 2022-04-13 18:17:00 Sapna Vargas [facility] GLYCOSYLATED HEMOGLOBIN (A1C) 2022-04-13 18:17:00 Harshil [facility] PROTHROMBIN TIME / INR 2022-04-13 18:17:00 Sapna Vargas [facility] ACTIVATED PARTIAL THRMPLAS DAVID 2022-04-13 18:17:00 Sapna Vargas [facility] COVID-19 (ID NOW RAPID TESTING) 2022-04-13 18:17:00 Sapna Vargas [facility] LAB ONLY COVID INTERPRETATION 2022-04-13 18:17:00 Sapna Vargas [facility] HB ECG ROUTINE & RHYTHM STRIP 2022-04-13 18:15:49 Sapna Vargas [facility] CONSENT/REFUSAL FOR DIAGNOSI S AND TREATMENT 2022-04-13 18:05:14 Doctor Unassigned, [place] [facility] HOSPITAL ADMISSION 2022-04-13 05:01:00 Doctor Unassigned, [place] [facility] SARS-COV-2 COVID-19 VACCINE 12 YRS+,0.3ML,IM (PFIZER - [facility]) 2022-02-19 15:21:12 Doctor Unassigned, [place] [facility] URINE DRUG (IMMUNOASSAY) - COMPREHENSIVE DRUG SCREEN W/O REFLEX 2021-11-23 21:21:00 Nichelle Virk [facility] CT HEAD WO CONTRAST 2021-11-23 20:58:00 Nichelle Virk [facility] POCT TEST 2021-11-23 20:46:00 Nichelle Virk [facility] URINALYSIS 2021-11-23 20:43:00 Nichelle Virk [facility] LIPASE 2021-11-23 20:27:00 Nichelle Virk [facility] TROPONIN I 2021-11-23 20:27:00 Nichelle Virk [facility] COMP. METABOLIC PANEL ([id number]) 2021-11-23 20:27:00 Nichelle Virk [facility] CBC WITH DIFF 2021-11-23 20:27:00 Nichelle Virk [facility] POCT GLUCOSE (AUTOMATED) 2021-11-23 20:15:00 Doctor Unassigned, [place] [facility] SARS-COV-2 COVID-19 VACCINE,0.3ML,IM (PFIZER) 2021-05-24 14:23:12 Doctor Unassigned, [place] [facility] SARS-COV-2 COVID-19 VACCINE,0.3ML,IM (PFIZER) 2021-05-03 14:59:29 Doctor Unassigned, [place] [facility] EMERGENCY SERVICES AGREEMENT S AND AUTHORIZATIONS 2021-04-16 05:01:00 Doctor Unassigned, [place] [facility] URINALYSIS 2021-03-17 03:09:00 Fabrice Chakraborty [facility] XR CHEST 1 VW 2021-03-17 01:45:07 Fabrice Chakraborty [facility] TROPONIN I 2021-03-17 01:35:00 Fabrice Chakraborty [facility] COMP. METABOLIC PANEL ([id number]) 2021-03-17 01:35:00 Fabrice Chakraborty [facility] CBC WITH DIFF 2021-03-17 01:35:00 Palmer [facility] N-TERMINAL PRO-BNP 2021-03-17 01:35:00 Palmer [facility] COVID-19 (ID NOW RAPID TESTING) 2021-03-17 00:58:00 Brian Ray [facility] CONSENT/REFUSAL FOR DIAGNOSI S AND TREATMENT 2021-03-17 00:32:59 Doctor Unassigned, [place] [facility] COVID-19 (ID NOW RAPID TESTING) 2021-02-19 17:04:00 Anali Monroy [facility] CT ABDOMEN PELVIS W CONTRAST 2021-02-19 16:41:18 Anali Monroy [facility] LIPASE 2021-02-19 15:58:00 Anali Monroy [facility] COMP. METABOLIC PANEL ([id number]) 2021-02-19 15:58:00 Anali Monroy [facility] CBC WITH DIFF 2021-02-19 15:58:00 Anali Monroy [facility] URINALYSIS 2021-02-19 15:58:00 Anali Monroy [facility] NOTICE OF PRIVACY PRACTICES 2021-02-19 15:30:46 Doctor Unassigned, [place] [facility] CONSENT/REFUSAL FOR DIAGNOSI S AND TREATMENT 2021-02-19 15:30:30 Doctor Unassigned, [place] [facility] Plan of Care Planned Activity Planned Date Details Comments Source Future Scheduled Test 2025-08-02 00:00:00 Lipid panel (procedure) [code = 00527868] [facility] Future Scheduled Test 2025-08-02 00:00:00 Lipid panel (procedure) [code = 52384880] [facility] [place] Scheduled Test 2025-08-02 00:00:00 Lipid panel (procedure) [code = 47941563] [facility] Future Scheduled Test 2025-08-02 00:00:00 Lipid panel (procedure) [code = 33281461] [facility] Scheduled Test 2025-08-02 00:00:00 Lipid panel (procedure) [code = 72663791] [facility] Future Scheduled Test 2025-08-02 00:00:00 Lipid panel (procedure) [code = 87750102] [facility] Future Scheduled Test 2025-08-02 00:00:00 Lipid panel (procedure) [code = 00373450] [facility] Future Scheduled Test 2025-08-02 00:00:00 Lipid panel (procedure) [code = 30042390] [facility] Future Scheduled Test 2025-08-02 00:00:00 Lipid panel (procedure) [code = 49025358] [facility] Future Scheduled Test 2025-08-02 00:00:00 Lipid panel (procedure) [code = 51261447] [facility] Future Scheduled Test 2025-08-02 00:00:00 Lipid panel (procedure) [code = 57025156] [facility] Future Scheduled Test 2025-08-02 00:00:00 Lipid panel (procedure) [code = 98139580] [facility] Future Scheduled Test 2025-08-02 00:00:00 Lipid panel (procedure) [code = 92850186] [facility] Future Scheduled Test 2025-08-02 00:00:00 Lipid panel (procedure) [code = 92390067] [facility] 2025-08-02 00:00:00 Lipid panel (procedure) [code = 69421059] [facility] 2025-08-02 00:00:00 Lipid panel (procedure) [code = 19005146] [facility] 2025-08-02 00:00:00 Lipid panel (procedure) [code = 05858468] [facility] 2025-08-02 00:00:00 Lipid panel (procedure) [code = 69407847] [facility] 2025-08-02 00:00:00 Lipid panel (procedure) [code = 64556710] [facility] 2025-08-02 00:00:00 Lipid panel (procedure) [code = 08706073] [facility] 2025-08-02 00:00:00 Lipid panel (procedure) [code = 72040335] [facility] 2025-08-02 00:00:00 Lipid panel (procedure) [code = 36903353] [facility] 2025-08-02 00:00:00 Lipid panel (procedure) [code = 16232117] [facility] 2025-08-02 00:00:00 Lipid panel (procedure) [code = 52684874] [facility] 2025-08-02 00:00:00 Lipid panel (procedure) [code = 54266143] [facility] 2025-08-02 00:00:00 Lipid panel (procedure) [code = 52557913] [facility] 2025-08-02 00:00:00 Lipid panel (procedure) [code = 76091911] [facility] 2025-08-02 00:00:00 Lipid panel (procedure) [code = 13861831] [facility] 2025-08-02 00:00:00 Lipid panel (procedure) [code = 93134006] [facility] 2025-08-02 00:00:00 Lipid panel (procedure) [code = 42528537] [facility] 2025-08-02 00:00:00 Lipid panel (procedure) [code = 94149778] [facility] 2025-08-02 00:00:00 Lipid panel (procedure) [code = 55603813] [facility] 2025-08-02 00:00:00 Lipid panel (procedure) [code = 96685576] [facility] Scheduled Test 2025-08-02 00:00:00 Lipid panel (procedure) [code = 54536751] [facility] Scheduled Test 2024-05-28 00:00:00 Tobacco Cessation Counseling and Screening (12+) [code = Tobacco Cessation Counseling and Screening (12+)] [facility] Scheduled Test 2024-05-28 00:00:00 Tobacco Cessation Counseling and Screening (12+) [code = Tobacco Cessation Counseling and Screening (12+)] [facility] Scheduled Test 2024-05-28 00:00:00 Tobacco Cessation Counseling and Screening (12+) [code = Tobacco Cessation Counseling and Screening (12+)] [facility] Scheduled Test 2024-05-28 00:00:00 Tobacco Cessation Counseling and Screening (12+) [code = Tobacco Cessation Counseling and Screening (12+)] [facility] Scheduled Test 2024-05-28 00:00:00 Tobacco Cessation Counseling and Screening (12+) [code = Tobacco Cessation Counseling and Screening (12+)] [facility] Scheduled Test 2024-05-28 00:00:00 Tobacco Cessation Counseling and Screening (12+) [code = Tobacco Cessation Counseling and Screening (12+)] [facility] Scheduled Test 2024-05-28 00:00:00 Tobacco Cessation Counseling and Screening (12+) [code = Tobacco Cessation Counseling and Screening (12+)] [facility] Scheduled Test 2024-05-28 00:00:00 Tobacco Cessation Counseling and Screening (12+) [code = Tobacco Cessation Counseling and Screening (12+)] [facility] Scheduled Test 2024-05-28 00:00:00 Tobacco Cessation Counseling and Screening (12+) [code = Tobacco Cessation Counseling and Screening (12+)] [facility] Scheduled Test 2024-05-26 00:00:00 Tobacco Cessation Counseling and Screening (12+) [code = Tobacco Cessation Counseling and Screening (12+)] [facility] Scheduled Test 2024-05-26 00:00:00 Tobacco Cessation Counseling and Screening (12+) [code = Tobacco Cessation Counseling and Screening (12+)] [facility] 2023-07-20 00:00:00 DEPRESSION SCREENING (12+) [code = DEPRESSION SCREENING (12+)] [facility] 2023-03-20 00:00:00 INFLUENZA VACCINE (Season Ended) [code = INFLUENZA VACCINE (Season Ended)] [facility] 2023-03-20 00:00:00 INFLUENZA VACCINE (Season Ended) [code = INFLUENZA VACCINE (Season Ended)] [facility] 2023-03-20 00:00:00 INFLUENZA VACCINE (Season Ended) [code = INFLUENZA VACCINE (Season Ended)] [facility] 2023-03-20 00:00:00 INFLUENZA VACCINE (Season Ended) [code = INFLUENZA VACCINE (Season Ended)] [facility] 2023-03-20 00:00:00 INFLUENZA VACCINE (Season Ended) [code = INFLUENZA VACCINE (Season Ended)] [facility] 2023-03-20 00:00:00 INFLUENZA VACCINE (Season Ended) [code = INFLUENZA VACCINE (Season Ended)] [facility] 2023-03-20 00:00:00 Influenza Vaccine (Season Ended) [code = Influenza Vaccine (Season Ended)] [facility] 2023-03-20 00:00:00 Influenza Vaccine (Season Ended) [code = Influenza Vaccine (Season Ended)] [facility] 2023-03-20 00:00:00 Influenza Vaccine (#1) [code = Influenza Vaccine (#1)] [facility] 2023-03-20 00:00:00 Influenza Vaccine (#1) [code = Influenza Vaccine (#1)] [facility] 2023-03-20 00:00:00 Influenza Vaccine (#1) [code = Influenza Vaccine (#1)] [facility] 2023-03-20 00:00:00 Influenza Vaccine (#1) [code = Influenza Vaccine (#1)] [facility] 2023-03-20 00:00:00 COVID-19 VACCINE ( season) [code = COVID-19 VACCINE ( season)] [facility] 2023-03-20 00:00:00 Influenza Vaccine (#1) [code = Influenza Vaccine (#1)] [facility] 2023-03-20 00:00:00 COVID-19 VACCINE ( season) [code = COVID-19 VACCINE ()] [facility] 2023-03-20 00:00:00 Influenza Vaccine (#1) [code = Influenza Vaccine (#1)] [facility] 2023-03-20 00:00:00 COVID-19 VACCINE ( season) [code = COVID-19 VACCINE ()] [facility] 2023-03-20 00:00:00 Influenza Vaccine (#1) [code = Influenza Vaccine (#1)] [facility] 2023-03-20 00:00:00 Influenza Vaccine (#1) [code = Influenza Vaccine (#1)] [facility] 2023-03-20 00:00:00 Influenza Vaccine (#1) [code = Influenza Vaccine (#1)] [facility] 2023-03-20 00:00:00 Influenza Vaccine (#1) [code = Influenza Vaccine (#1)] [facility] 2023-03-20 00:00:00 Influenza Vaccine (#1) [code = Influenza Vaccine (#1)] [facility] 2023-03-20 00:00:00 Influenza Vaccine (#1) [code = Influenza Vaccine (#1)] [facility] 2023-03-20 00:00:00 Influenza Vaccine (#1) [code = Influenza Vaccine (#1)] [facility] 2023-03-20 00:00:00 Influenza Vaccine (#1) [code = Influenza Vaccine (#1)] [facility] 2023-03-20 00:00:00 Influenza Vaccine (#1) [code = Influenza Vaccine (#1)] [facility] 2023-03-20 00:00:00 Influenza Vaccine (#1) [code = Influenza Vaccine (#1)] [facility] 2023-03-20 00:00:00 Influenza Vaccine (#1) [code = Influenza Vaccine (#1)] [facility] 2023-03-20 00:00:00 Influenza Vaccine (#1) [code = Influenza Vaccine (#1)] [facility] 2023-03-20 00:00:00 Influenza Vaccine (#1) [code = Influenza Vaccine (#1)] [facility] 2023-03-20 00:00:00 Influenza Vaccine (#1) [code = Influenza Vaccine (#1)] [facility] 2023-03-20 00:00:00 Influenza Vaccine (#1) [code = Influenza Vaccine (#1)] [facility] 2023-03-20 00:00:00 Influenza Vaccine (#1) [code = Influenza Vaccine (#1)] [facility] 2023-03-20 00:00:00 COVID-19 VACCINE ( season) [code = COVID-19 VACCINE ( season)] [facility] 2022-07-20 00:00:00 DEPRESSION SCREENING (12+) [code = DEPRESSION SCREENING (12+)] [facility] 2022-07-20 00:00:00 DEPRESSION SCREENING (12+) [code = DEPRESSION SCREENING (12+)] [facility] 2022-07-20 00:00:00 DEPRESSION SCREENING (12+) [code = DEPRESSION SCREENING (12+)] [facility] 2022-07-20 00:00:00 DEPRESSION SCREENING (12+) [code = DEPRESSION SCREENING (12+)] [facility] 2022-07-20 00:00:00 DEPRESSION SCREENING (12+) [code = DEPRESSION SCREENING (12+)] [facility] 2022-07-20 00:00:00 DEPRESSION SCREENING (12+) [code = DEPRESSION SCREENING (12+)] [facility] 2022-07-20 00:00:00 DEPRESSION SCREENING (12+) [code = DEPRESSION SCREENING (12+)] [facility] 2022-07-20 00:00:00 DEPRESSION SCREENING (12+) [code = DEPRESSION SCREENING (12+)] [facility] 2022-07-20 00:00:00 DEPRESSION SCREENING (12+) [code = DEPRESSION SCREENING (12+)] [facility] 2022-07-20 00:00:00 DEPRESSION SCREENING (12+) [code = DEPRESSION SCREENING (12+)] [facility] 2022-07-20 00:00:00 DEPRESSION SCREENING (12+) [code = DEPRESSION SCREENING (12+)] [facility] 2022-07-20 00:00:00 DEPRESSION SCREENING (12+) [code = DEPRESSION SCREENING (12+)] [facility] 2022-07-20 00:00:00 DEPRESSION SCREENING (12+) [code = DEPRESSION SCREENING (12+)] [facility] 2022-07-20 00:00:00 DEPRESSION SCREENING (12+) [code = DEPRESSION SCREENING (12+)] [facility] 2022-07-20 00:00:00 DEPRESSION SCREENING (12+) [code = DEPRESSION SCREENING (12+)] [facility] 2022-07-20 00:00:00 DEPRESSION SCREENING (12+) [code = DEPRESSION SCREENING (12+)] [facility] 2022-07-20 00:00:00 DEPRESSION SCREENING (12+) [code = DEPRESSION SCREENING (12+)] [facility] 2022-07-20 00:00:00 DEPRESSION SCREENING (12+) [code = DEPRESSION SCREENING (12+)] [facility] 2022-07-20 00:00:00 DEPRESSION SCREENING (12+) [code = DEPRESSION SCREENING (12+)] [facility] 2022-07-20 00:00:00 DEPRESSION SCREENING (12+) [code = DEPRESSION SCREENING (12+)] [facility] 2022-07-20 00:00:00 DEPRESSION SCREENING (12+) [code = DEPRESSION SCREENING (12+)] [facility] 2022-07-20 00:00:00 DEPRESSION SCREENING (12+) [code = DEPRESSION SCREENING (12+)] [facility] 2022-07-20 00:00:00 DEPRESSION SCREENING (12+) [code = DEPRESSION SCREENING (12+)] [facility] 2022-07-20 00:00:00 DEPRESSION SCREENING (12+) [code = DEPRESSION SCREENING (12+)] [facility] 2022-07-20 00:00:00 DEPRESSION SCREENING (12+) [code = DEPRESSION SCREENING (12+)] [facility] 2022-07-20 00:00:00 DEPRESSION SCREENING (12+) [code = DEPRESSION SCREENING (12+)] [facility] 2022-07-20 00:00:00 DEPRESSION SCREENING (12+) [code = DEPRESSION SCREENING (12+)] [facility] 2022-07-20 00:00:00 DEPRESSION SCREENING (12+) [code = DEPRESSION SCREENING (12+)] [facility] 2022-07-20 00:00:00 DEPRESSION SCREENING (12+) [code = DEPRESSION SCREENING (12+)] [facility] 2022-07-20 00:00:00 DEPRESSION SCREENING (12+) [code = DEPRESSION SCREENING (12+)] [facility] 2022-07-20 00:00:00 DEPRESSION SCREENING (12+) [code = DEPRESSION SCREENING (12+)] [facility] 2022-07-20 00:00:00 DEPRESSION SCREENING (12+) [code = DEPRESSION SCREENING (12+)] [facility] 2022-07-20 00:00:00 DEPRESSION SCREENING (12+) [code = DEPRESSION SCREENING (12+)] [facility] 2022-06-21 00:00:00 COVID-19 VACCINE (4 - Booster for Pfizer series) [code = COVID-19 VACCINE (4 - Booster for Pfizer series)] [facility] 2022-06-21 00:00:00 COVID-19 VACCINE (4 - Booster for Pfizer series) [code = COVID-19 VACCINE (4 - Booster for Pfizer series)] [facility] 2022-06-21 00:00:00 COVID-19 VACCINE (4 - Booster for Pfizer series) [code = COVID-19 VACCINE (4 - Booster for Pfizer series)] [facility] 2022-06-21 00:00:00 COVID-19 VACCINE (4 - Booster for Pfizer series) [code = COVID-19 VACCINE (4 - Booster for Pfizer series)] [facility] 2022-04-16 00:00:00 COVID-19 VACCINE (4 - Booster for Pfizer series) [code = COVID-19 VACCINE (4 - Booster for Pfizer series)] [facility] 2022-04-16 00:00:00 COVID-19 VACCINE (4 - Booster for Pfizer series) [code = COVID-19 VACCINE (4 - Booster for Pfizer series)] [facility] 2022-04-16 00:00:00 COVID-19 VACCINE (4 - Booster for Pfizer series) [code = COVID-19 VACCINE (4 - Booster for Pfizer series)] [facility] 2022-04-16 00:00:00 COVID-19 VACCINE (4 - Booster for Pfizer series) [code = COVID-19 VACCINE (4 - Booster for Pfizer series)] [facility] 2022-04-16 00:00:00 COVID-19 VACCINE (4 - Booster for Pfizer series) [code = COVID-19 VACCINE (4 - Booster for Pfizer series)] [facility] 2022-04-16 00:00:00 COVID-19 VACCINE (4 - Booster for Pfizer series) [code = COVID-19 VACCINE (4 - Booster for Pfizer series)] [facility] 2022-04-16 00:00:00 COVID-19 VACCINE (4 - Booster for Pfizer series) [code = COVID-19 VACCINE (4 - Booster for Pfizer series)] [facility] 2022-04-16 00:00:00 COVID-19 VACCINE (4 - Booster for Pfizer series) [code = COVID-19 VACCINE (4 - Booster for Pfizer series)] [facility] 2022-04-16 00:00:00 COVID-19 VACCINE (4 - Booster for Pfizer series) [code = COVID-19 VACCINE (4 - Booster for Pfizer series)] [facility] 2022-04-16 00:00:00 COVID-19 VACCINE (4 - Booster for Pfizer series) [code = COVID-19 VACCINE (4 - Booster for Pfizer series)] [facility] 2022-04-16 00:00:00 COVID-19 VACCINE (4 - Booster for Pfizer series) [code = COVID-19 VACCINE (4 - Booster for Pfizer series)] [facility] 2022-04-16 00:00:00 COVID-19 VACCINE (4 - Booster for Pfizer series) [code = COVID-19 VACCINE (4 - Booster for Pfizer series)] [facility] 2022-04-16 00:00:00 COVID-19 VACCINE (4 - Booster for Pfizer series) [code = COVID-19 VACCINE (4 - Booster for Pfizer series)] [facility] 2022-04-16 00:00:00 COVID-19 VACCINE (4 - Booster for Pfizer series) [code = COVID-19 VACCINE (4 - Booster for Pfizer series)] [facility] 2022-04-16 00:00:00 COVID-19 VACCINE (4 - Booster for Pfizer series) [code = COVID-19 VACCINE (4 - Booster for Pfizer series)] [facility] 2022-04-16 00:00:00 COVID-19 VACCINE (4 - Booster for Pfizer series) [code = COVID-19 VACCINE (4 - Booster for Pfizer series)] [facility] 2022-04-16 00:00:00 COVID-19 VACCINE (4 - Booster for Pfizer series) [code = COVID-19 VACCINE (4 - Booster for Pfizer series)] [facility] 2022-04-16 00:00:00 COVID-19 VACCINE (4 - Booster for Pfizer series) [code = COVID-19 VACCINE (4 - Booster for Pfizer series)] [facility] 2022-04-16 00:00:00 COVID-19 VACCINE (4 - Booster for Pfizer series) [code = COVID-19 VACCINE (4 - Booster for Pfizer series)] [facility] 2022-04-16 00:00:00 COVID-19 VACCINE (4 - Booster for Pfizer series) [code = COVID-19 VACCINE (4 - Booster for Pfizer series)] [facility] 2022-04-16 00:00:00 COVID-19 VACCINE (4 - Pfizer series) [code = COVID-19 VACCINE (4 - Pfizer series)] [facility] 2022-04-16 00:00:00 COVID-19 VACCINE (4 - Pfizer series) [code = COVID-19 VACCINE (4 - Pfizer series)] [facility] 2022-04-16 00:00:00 COVID-19 VACCINE (4 - Pfizer series) [code = COVID-19 VACCINE (4 - Pfizer series)] [facility] 2022-04-16 00:00:00 COVID-19 VACCINE (4 - Pfizer series) [code = COVID-19 VACCINE (4 - Pfizer series)] [facility] 2022-04-16 00:00:00 COVID-19 VACCINE (4 - Booster for Pfizer series) [code = COVID-19 VACCINE (4 - Booster for Pfizer series)] [facility] 2022-04-16 00:00:00 COVID-19 VACCINE (4 - Pfizer series) [code = COVID-19 VACCINE (4 - Pfizer series)] [facility] 2022-03-20 00:00:00 INFLUENZA VACCINE (#1) [code = INFLUENZA VACCINE (#1)] [facility] 2022-03-20 00:00:00 INFLUENZA VACCINE (#1) [code = INFLUENZA VACCINE (#1)] [facility] 2022-03-20 00:00:00 INFLUENZA VACCINE (#1) [code = INFLUENZA VACCINE (#1)] [facility] 2022-03-20 00:00:00 INFLUENZA VACCINE (#1) [code = INFLUENZA VACCINE (#1)] [facility] 2022-01-14 00:00:00 SHINGLES VACCINES (1 of 2) [code = SHINGLES VACCINES (1 of 2)] [facility] 2022-01-14 00:00:00 SHINGLES VACCINES (1 of 2) [code = SHINGLES VACCINES (1 of 2)] [facility] 2022-01-14 00:00:00 SHINGLES VACCINES (1 of 2) [code = SHINGLES VACCINES (1 of 2)] [facility] 2022-01-14 00:00:00 SHINGLES VACCINES (1 of 2) [code = SHINGLES VACCINES (1 of 2)] [facility] 2022-01-14 00:00:00 SHINGLES VACCINES (1 of 2) [code = SHINGLES VACCINES (1 of 2)] [facility] 2022-01-14 00:00:00 SHINGLES VACCINES (1 of 2) [code = SHINGLES VACCINES (1 of 2)] [facility] 2022-01-14 00:00:00 SHINGLES VACCINES (1 of 2) [code = SHINGLES VACCINES (1 of 2)] [facility] 2022-01-14 00:00:00 SHINGLES VACCINES (1 of 2) [code = SHINGLES VACCINES (1 of 2)] [facility] 2022-01-14 00:00:00 SHINGLES VACCINES (1 of 2) [code = SHINGLES VACCINES (1 of 2)] [facility] 2022-01-14 00:00:00 SHINGLES VACCINES (1 of 2) [code = SHINGLES VACCINES (1 of 2)] [facility] 2022-01-14 00:00:00 SHINGLES VACCINES (1 of 2) [code = SHINGLES VACCINES (1 of 2)] [facility] 2022-01-14 00:00:00 SHINGLES VACCINES (1 of 2) [code = SHINGLES VACCINES (1 of 2)] [facility] 2022-01-14 00:00:00 SHINGLES VACCINES (1 of 2) [code = SHINGLES VACCINES (1 of 2)] [facility] 2022-01-14 00:00:00 SHINGLES VACCINES (1 of 2) [code = SHINGLES VACCINES (1 of 2)] [facility] 2022-01-14 00:00:00 SHINGLES VACCINES (1 of 2) [code = SHINGLES VACCINES (1 of 2)] [facility] 2022-01-14 00:00:00 Screening for malignant neoplasm of lung (procedure) [code = 949903085] [facility] 2022-01-14 00:00:00 SHINGLES VACCINES (1 of 2) [code = SHINGLES VACCINES (1 of 2)] [facility] 2022-01-14 00:00:00 Screening for malignant neoplasm of lung (procedure) [code = [id number]] [facility] 2022-01-14 00:00:00 SHINGLES VACCINES (1 of 2) [code = SHINGLES VACCINES (1 of 2)] [facility] 2022-01-14 00:00:00 Screening for malignant neoplasm of lung (procedure) [code = [id number]] [facility] 2022-01-14 00:00:00 SHINGLES VACCINES (1 of 2) [code = SHINGLES VACCINES (1 of 2)] [facility] 2022-01-14 00:00:00 Screening for malignant neoplasm of lung (procedure) [code = 540953109] [facility] 2022-01-14 00:00:00 SHINGLES VACCINES (1 of 2) [code = SHINGLES VACCINES (1 of 2)] [facility] 20[facility]-01-14 00:00:00 Screening for malignant neoplasm of lung (procedure) [code = [id number]] [facility] 2022-01-14 00:00:00 SHINGLES VACCINES (1 of 2) [code = SHINGLES VACCINES (1 of 2)] [facility] 2022-01-14 00:00:00 Screening for malignant neoplasm of lung (procedure) [code = [id number]] [facility] 2022-01-14 00:00:00 SHINGLES VACCINES (1 of 2) [code = SHINGLES VACCINES (1 of 2)] [facility] 2022-01-14 00:00:00 Screening for malignant neoplasm of lung (procedure) [code = [id number]] [facility] 2022-01-14 00:00:00 SHINGLES VACCINES (1 of 2) [code = SHINGLES VACCINES (1 of 2)] [facility] 2022-01-14 00:00:00 Screening for malignant neoplasm of lung (procedure) [code = [id number]] [facility] 2022-01-14 00:00:00 SHINGLES VACCINES (1 of 2) [code = SHINGLES VACCINES (1 of 2)] [facility] 2022-01-14 00:00:00 Screening for malignant neoplasm of lung (procedure) [code = [id number]] [facility] 2022-01-14 00:00:00 SHINGLES VACCINES (1 of 2) [code = SHINGLES VACCINES (1 of 2)] [facility] 2022-01-14 00:00:00 Screening for malignant neoplasm of lung (procedure) [code = 851690518] [facility] 2022-01-14 00:00:00 SHINGLES VACCINES (1 of 2) [code = SHINGLES VACCINES (1 of 2)] [facility] 2022-01-14 00:00:00 SHINGLES VACCINES (1 of 2) [code = SHINGLES VACCINES (1 of 2)] [facility] 2022-01-14 00:00:00 SHINGLES VACCINES (1 of 2) [code = SHINGLES VACCINES (1 of 2)] [facility] 2022-01-14 00:00:00 Screening for malignant neoplasm of lung (procedure) [code = [id number]] [facility] 2022-01-14 00:00:00 SHINGLES VACCINES (1 of 2) [code = SHINGLES VACCINES (1 of 2)] [facility] 2022-01-14 00:00:00 Screening for malignant neoplasm of lung (procedure) [code = [id number]] [facility] 2022-01-14 00:00:00 SHINGLES VACCINES (1 of 2) [code = SHINGLES VACCINES (1 of 2)] [facility] 2022-01-14 00:00:00 Screening for malignant neoplasm of lung (procedure) [code = [id number]] [facility] 2022-01-14 00:00:00 SHINGLES VACCINES (1 of 2) [code = SHINGLES VACCINES (1 of 2)] [facility] 2022-01-14 00:00:00 Screening for malignant neoplasm of lung (procedure) [code = 766111657] [facility] 2022-01-14 00:00:00 SHINGLES VACCINES (1 of 2) [code = SHINGLES VACCINES (1 of 2)] [facility] 2022-01-14 00:00:00 Screening for malignant neoplasm of lung (procedure) [code = 939102661] [facility] 2022-01-14 00:00:00 SHINGLES VACCINES (1 of 2) [code = SHINGLES VACCINES (1 of 2)] [facility] 2022-01-14 00:00:00 Screening for malignant neoplasm of lung (procedure) [code = [id number]] [facility] 2022-01-14 00:00:00 SHINGLES VACCINES (1 of 2) [code = SHINGLES VACCINES (1 of 2)] [facility] 2022-01-14 00:00:00 Screening for malignant neoplasm of lung (procedure) [code = 253620956] [facility] 2022-01-14 00:00:00 SHINGLES VACCINES (1 of 2) [code = SHINGLES VACCINES (1 of 2)] [facility] 2013-12-15 00:00:00 PNEUMOCOCCAL VACCINE 0-64 YRS (2 - PCV) [code = PNEUMOCOCCAL VACCINE 0-64 YRS (2 - PCV)] [facility] 2013-12-15 00:00:00 PNEUMOCOCCAL VACCINE 0-64 YRS (2 - PCV) [code = PNEUMOCOCCAL VACCINE 0-64 YRS (2 - PCV)] [facility] 2013-12-15 00:00:00 PNEUMOCOCCAL VACCINE 0-64 YRS (2 - PCV) [code = PNEUMOCOCCAL VACCINE 0-64 YRS (2 - PCV)] [facility] 2013-12-15 00:00:00 PNEUMOCOCCAL VACCINE 0-64 YRS (2 - PCV) [code = PNEUMOCOCCAL VACCINE 0-64 YRS (2 - PCV)] [facility] 2013-12-15 00:00:00 Pneumococcal Vaccine: 0-64 Years (2 - PCV) [code = Pneumococcal Vaccine: 0-64 Years (2 - PCV)] [facility] 2013-12-15 00:00:00 Pneumococcal Vaccine: 0-64 Years (2 - PCV) [code = Pneumococcal Vaccine: 0-64 Years (2 - PCV)] [facility] 2013-12-15 00:00:00 Pneumococcal Vaccine: 0-64 Years (2 - PCV) [code = Pneumococcal Vaccine: 0-64 Years (2 - PCV)] [facility] 2013-12-15 00:00:00 Pneumococcal Vaccine: 0-64 Years (2 - PCV) [code = Pneumococcal Vaccine: 0-64 Years (2 - PCV)] [facility] 2013-12-15 00:00:00 Pneumococcal Vaccine: 0-64 Years (2 - PCV) [code = Pneumococcal Vaccine: 0-64 Years (2 - PCV)] [facility] 2013-12-15 00:00:00 Pneumococcal Vaccine: 0-64 Years (2 - PCV) [code = Pneumococcal Vaccine: 0-64 Years (2 - PCV)] [facility] 1993-01-14 00:00:00 Screening for malignant neoplasm of cervix (procedure) [code = [id number]] [facility] 1993-01-14 00:00:00 Screening for malignant neoplasm of cervix (procedure) [code = 156461941] [facility] 1993-01-14 00:00:00 Screening for malignant neoplasm of cervix (procedure) [code = 695670413] [facility] 1993-01-14 00:00:00 Screening for malignant neoplasm of cervix (procedure) [code = 133709075] [facility] 1993-01-14 00:00:00 Screening for malignant neoplasm of cervix (procedure) [code = 358904490] [facility] 1993-01-14 00:00:00 Screening for malignant neoplasm of cervix (procedure) [code = 863888601] [facility] 1993-01-14 00:00:00 Screening for malignant neoplasm of cervix (procedure) [code = 094087589] [facility] 1993-01-14 00:00:00 Screening for malignant neoplasm of cervix (procedure) [code = 139755533] [facility] 1993-01-14 00:00:00 Screening for malignant neoplasm of cervix (procedure) [code = 282919036] [facility] 1993-01-14 00:00:00 Screening for malignant neoplasm of cervix (procedure) [code = 394707237] [facility] 1993-01-14 00:00:00 Screening for malignant neoplasm of cervix (procedure) [code = 226754018] [facility] 1993-01-14 00:00:00 Screening for malignant neoplasm of cervix (procedure) [code = 087529907] [facility] 1993-01-14 00:00:00 Screening for malignant neoplasm of cervix (procedure) [code = 757523106] [facility] 1993-01-14 00:00:00 Screening for malignant neoplasm of cervix (procedure) [code = 145216669] [facility] 1993-01-14 00:00:00 Screening for malignant neoplasm of cervix (procedure) [code = 081457513] [facility] 1993-01-14 00:00:00 Screening for malignant neoplasm of cervix (procedure) [code = 093497095] [facility] 1993-01-14 00:00:00 Screening for malignant neoplasm of cervix (procedure) [code = 514103416] [facility] 1993-01-14 00:00:00 Screening for malignant neoplasm of cervix (procedure) [code = 923274419] [facility] 1993-01-14 00:00:00 Screening for malignant neoplasm of cervix (procedure) [code = 148417698] [facility] 1993-01-14 00:00:00 Screening for malignant neoplasm of cervix (procedure) [code = 970704144] [facility] 1993-01-14 00:00:00 Screening for malignant neoplasm of cervix (procedure) [code = 038090949] [facility] 1993-01-14 00:00:00 Screening for malignant neoplasm of cervix (procedure) [code = 419089895] [facility] 1993-01-14 00:00:00 Screening for malignant neoplasm of cervix (procedure) [code = 936538694] [facility] 1993-01-14 00:00:00 Screening for malignant neoplasm of cervix (procedure) [code = 200966472] [facility] 1993-01-14 00:00:00 Screening for malignant neoplasm of cervix (procedure) [code = 983088126] [facility] 1993-01-14 00:00:00 Screening for malignant neoplasm of cervix (procedure) [code = 521880840] [facility] 1993-01-14 00:00:00 Screening for malignant neoplasm of cervix (procedure) [code = 886024271] [facility] 1993-01-14 00:00:00 Screening for malignant neoplasm of cervix (procedure) [code = 521933788] [facility] 1993-01-14 00:00:00 Screening for malignant neoplasm of cervix (procedure) [code = 151521298] [facility] 1993-01-14 00:00:00 Screening for malignant neoplasm of cervix (procedure) [code = 676109780] [facility] 1993-01-14 00:00:00 Screening for malignant neoplasm of cervix (procedure) [code = 194242282] [facility] 1993-01-14 00:00:00 Screening for malignant neoplasm of cervix (procedure) [code = 066234996] [facility] 1993-01-14 00:00:00 Screening for malignant neoplasm of cervix (procedure) [code = 114112307] [facility] 1993-01-14 00:00:00 Screening for malignant neoplasm of cervix (procedure) [code = 744732931] [facility] 1991-01-14 00:00:00 DTAP/TDAP/TD VACCINES (1 - Tdap) [code = DTAP/TDAP/TD VACCINES (1 - Tdap)] [facility] 1991-01-14 00:00:00 DTAP/TDAP/TD VACCINES (1 - Tdap) [code = DTAP/TDAP/TD VACCINES (1 - Tdap)] [facility] 1991-01-14 00:00:00 DTAP/TDAP/TD VACCINES (1 - Tdap) [code = DTAP/TDAP/TD VACCINES (1 - Tdap)] [facility] 1991-01-14 00:00:00 DTAP/TDAP/TD VACCINES (1 - Tdap) [code = DTAP/TDAP/TD VACCINES (1 - Tdap)] [facility] 1991-01-14 00:00:00 DTAP/TDAP/TD VACCINES (1 - Tdap) [code = DTAP/TDAP/TD VACCINES (1 - Tdap)] [facility] 1991-01-14 00:00:00 DTAP/TDAP/TD VACCINES (1 - Tdap) [code = DTAP/TDAP/TD VACCINES (1 - Tdap)] [facility] 1991-01-14 00:00:00 DTAP/TDAP/TD VACCINES (1 - Tdap) [code = DTAP/TDAP/TD VACCINES (1 - Tdap)] [facility] 1991-01-14 00:00:00 DTAP/TDAP/TD VACCINES (1 - Tdap) [code = DTAP/TDAP/TD VACCINES (1 - Tdap)] [facility] 1991-01-14 00:00:00 DTAP/TDAP/TD VACCINES (1 - Tdap) [code = DTAP/TDAP/TD VACCINES (1 - Tdap)] [facility] 1991-01-14 00:00:00 DTAP/TDAP/TD VACCINES (1 - Tdap) [code = DTAP/TDAP/TD VACCINES (1 - Tdap)] [facility] 1991-01-14 00:00:00 DTAP/TDAP/TD VACCINES (1 - Tdap) [code = DTAP/TDAP/TD VACCINES (1 - Tdap)] [facility] 1991-01-14 00:00:00 DTAP/TDAP/TD VACCINES (1 - Tdap) [code = DTAP/TDAP/TD VACCINES (1 - Tdap)] [facility] 1991-01-14 00:00:00 DTAP/TDAP/TD VACCINES (1 - Tdap) [code = DTAP/TDAP/TD VACCINES (1 - Tdap)] [facility] 1991-01-14 00:00:00 DTAP/TDAP/TD VACCINES (1 - Tdap) [code = DTAP/TDAP/TD VACCINES (1 - Tdap)] [facility] 1991-01-14 00:00:00 DTAP/TDAP/TD VACCINES (1 - Tdap) [code = DTAP/TDAP/TD VACCINES (1 - Tdap)] [facility] 1991-01-14 00:00:00 DTAP/TDAP/TD VACCINES (1 - Tdap) [code = DTAP/TDAP/TD VACCINES (1 - Tdap)] [facility] 1991-01-14 00:00:00 DTAP/TDAP/TD VACCINES (1 - Tdap) [code = DTAP/TDAP/TD VACCINES (1 - Tdap)] [facility] 1991-01-14 00:00:00 DTAP/TDAP/TD VACCINES (1 - Tdap) [code = DTAP/TDAP/TD VACCINES (1 - Tdap)] [facility] 1991-01-14 00:00:00 DTAP/TDAP/TD VACCINES (1 - Tdap) [code = DTAP/TDAP/TD VACCINES (1 - Tdap)] [facility] 1991-01-14 00:00:00 DTAP/TDAP/TD VACCINES (1 - Tdap) [code = DTAP/TDAP/TD VACCINES (1 - Tdap)] [facility] 1991-01-14 00:00:00 DTAP/TDAP/TD VACCINES (1 - Tdap) [code = DTAP/TDAP/TD VACCINES (1 - Tdap)] [facility] 1991-01-14 00:00:00 DTAP/TDAP/TD VACCINES (1 - Tdap) [code = DTAP/TDAP/TD VACCINES (1 - Tdap)] [facility] 1991-01-14 00:00:00 DTAP/TDAP/TD VACCINES (1 - Tdap) [code = DTAP/TDAP/TD VACCINES (1 - Tdap)] [facility] 1991-01-14 00:00:00 DTAP/TDAP/TD VACCINES (1 - Tdap) [code = DTAP/TDAP/TD VACCINES (1 - Tdap)] [facility] 1991-01-14 00:00:00 DTAP/TDAP/TD VACCINES (1 - Tdap) [code = DTAP/TDAP/TD VACCINES (1 - Tdap)] [facility] 1991-01-14 00:00:00 DTAP/TDAP/TD VACCINES (1 - Tdap) [code = DTAP/TDAP/TD VACCINES (1 - Tdap)] [facility] 1991-01-14 00:00:00 DTAP/TDAP/TD VACCINES (1 - Tdap) [code = DTAP/TDAP/TD VACCINES (1 - Tdap)] [facility] 1991-01-14 00:00:00 DTAP/TDAP/TD VACCINES (1 - Tdap) [code = DTAP/TDAP/TD VACCINES (1 - Tdap)] [facility] 1991-01-14 00:00:00 DTAP/TDAP/TD VACCINES (1 - Tdap) [code = DTAP/TDAP/TD VACCINES (1 - Tdap)] [facility] 1991-01-14 00:00:00 DTAP/TDAP/TD VACCINES (1 - Tdap) [code = DTAP/TDAP/TD VACCINES (1 - Tdap)] [facility] 1991-01-14 00:00:00 DTAP/TDAP/TD VACCINES (1 - Tdap) [code = DTAP/TDAP/TD VACCINES (1 - Tdap)] [facility] 1991-01-14 00:00:00 DTAP/TDAP/TD VACCINES (1 - Tdap) [code = DTAP/TDAP/TD VACCINES (1 - Tdap)] [facility] 1991-01-14 00:00:00 DTAP/TDAP/TD VACCINES (1 - Tdap) [code = DTAP/TDAP/TD VACCINES (1 - Tdap)] [facility] 1991-01-14 00:00:00 DTAP/TDAP/TD VACCINES (1 - Tdap) [code = DTAP/TDAP/TD VACCINES (1 - Tdap)] [facility] 1990-01-14 00:00:00 HEPATITIS C SCREENING [code = HEPATITIS C SCREENING] [facility] 1990-01-14 00:00:00 HEPATITIS C SCREENING [code = HEPATITIS C SCREENING] [facility] 1990-01-14 00:00:00 HEPATITIS C SCREENING [code = HEPATITIS C SCREENING] [facility] 1990-01-14 00:00:00 HEPATITIS C SCREENING [code = HEPATITIS C SCREENING] [facility] 1990-01-14 00:00:00 HEPATITIS C SCREENING [code = HEPATITIS C SCREENING] [facility] 1990-01-14 00:00:00 HEPATITIS C SCREENING [code = HEPATITIS C SCREENING] [facility] 1990-01-14 00:00:00 HEPATITIS C SCREENING [code = HEPATITIS C SCREENING] [facility] 1990-01-14 00:00:00 HEPATITIS C SCREENING [code = HEPATITIS C SCREENING] [facility] 1990-01-14 00:00:00 HEPATITIS C SCREENING [code = HEPATITIS C SCREENING] [facility] 1990-01-14 00:00:00 HEPATITIS C SCREENING [code = HEPATITIS C SCREENING] [facility] 1990-01-14 00:00:00 HEPATITIS C SCREENING [code = HEPATITIS C SCREENING] [facility] 1990-01-14 00:00:00 HEPATITIS C SCREENING [code = HEPATITIS C SCREENING] [facility] 1990-01-14 00:00:00 HEPATITIS C SCREENING [code = HEPATITIS C SCREENING] [facility] 1990-01-14 00:00:00 HEPATITIS C SCREENING [code = HEPATITIS C SCREENING] [facility] 1990-01-14 00:00:00 HEPATITIS C SCREENING [code = HEPATITIS C SCREENING] [facility] 1990-01-14 00:00:00 HEPATITIS C SCREENING [code = HEPATITIS C SCREENING] [facility] 1990-01-14 00:00:00 HEPATITIS C SCREENING [code = HEPATITIS C SCREENING] [facility] 1990-01-14 00:00:00 HEPATITIS C SCREENING [code = HEPATITIS C SCREENING] [facility] 1990-01-14 00:00:00 HEPATITIS C SCREENING [code = HEPATITIS C SCREENING] [facility] 1990-01-14 00:00:00 HEPATITIS C SCREENING [code = HEPATITIS C SCREENING] [facility] 1990-01-14 00:00:00 HEPATITIS C SCREENING [code = HEPATITIS C SCREENING] [facility] 1990-01-14 00:00:00 HEPATITIS C SCREENING [code = HEPATITIS C SCREENING] [facility] 1990-01-14 00:00:00 HEPATITIS C SCREENING [code = HEPATITIS C SCREENING] [facility] 1990-01-14 00:00:00 HEPATITIS C SCREENING [code = HEPATITIS C SCREENING] [facility] 1990-01-14 00:00:00 HEPATITIS C SCREENING [code = HEPATITIS C SCREENING] [facility] 1990-01-14 00:00:00 HEPATITIS C SCREENING [code = HEPATITIS C SCREENING] [facility] 1990-01-14 00:00:00 HEPATITIS C SCREENING [code = HEPATITIS C SCREENING] [facility] 1990-01-14 00:00:00 HEPATITIS C SCREENING [code = HEPATITIS C SCREENING] [facility] 1990-01-14 00:00:00 HEPATITIS C SCREENING [code = HEPATITIS C SCREENING] [facility] 1990-01-14 00:00:00 HEPATITIS C SCREENING [code = HEPATITIS C SCREENING] [facility] 1990-01-14 00:00:00 HEPATITIS C SCREENING [code = HEPATITIS C SCREENING] [facility] 1990-01-14 00:00:00 HEPATITIS C SCREENING [code = HEPATITIS C SCREENING] [facility] 1990-01-14 00:00:00 HEPATITIS C SCREENING [code = HEPATITIS C SCREENING] [facility] 1990-01-14 00:00:00 HEPATITIS C SCREENING [code = HEPATITIS C SCREENING] [facility] 1987-01-14 00:00:00 Human immunodeficiency virus screening (procedure) [code = [id number]] [facility] 1987-01-14 00:00:00 Human immunodeficiency virus screening (procedure) [code = [id number]] [facility] Scheduled Test 1984 00:00:00 Tobacco Cessation Counseling and Screening (12+) [code = Tobacco Cessation Counseling and Screening (12+)] [facility] Scheduled Test 1984 00:00:00 Tobacco Cessation Counseling and Screening (12+) [code = Tobacco Cessation Counseling and Screening (12+)] [facility] 1984 00:00:00 Tobacco Cessation Counseling and Screening (12+) [code = Tobacco Cessation Counseling and Screening (12+)] [facility] 1984 00:00:00 Tobacco Cessation Counseling and Screening (12+) [code = Tobacco Cessation Counseling and Screening (12+)] [facility] 1984 00:00:00 Tobacco Cessation Counseling and Screening (12+) [code = Tobacco Cessation Counseling and Screening (12+)] [facility] 1984 00:00:00 Tobacco Cessation Counseling and Screening (12+) [code = Tobacco Cessation Counseling and Screening (12+)] [facility] 1984 00:00:00 Tobacco Cessation Counseling and Screening (12+) [code = Tobacco Cessation Counseling and Screening (12+)] [facility] 1984 00:00:00 Tobacco Cessation Counseling and Screening (12+) [code = Tobacco Cessation Counseling and Screening (12+)] [facility] 1984 00:00:00 Tobacco Cessation Counseling and Screening (12+) [code = Tobacco Cessation Counseling and Screening (12+)] [facility] 1984 00:00:00 Tobacco Cessation Counseling and Screening (12+) [code = Tobacco Cessation Counseling and Screening (12+)] [facility] 1984 00:00:00 Tobacco Cessation Counseling and Screening (12+) [code = Tobacco Cessation Counseling and Screening (12+)] [facility] Scheduled Test 1984 00:00:00 Tobacco Cessation Counseling and Screening (12+) [code = Tobacco Cessation Counseling and Screening (12+)] [facility] 1984 00:00:00 Tobacco Cessation Counseling and Screening (12+) [code = Tobacco Cessation Counseling and Screening (12+)] [facility] Scheduled Test 1984 00:00:00 Tobacco Cessation Counseling and Screening (12+) [code = Tobacco Cessation Counseling and Screening (12+)] [facility] Scheduled Test 1984 00:00:00 Tobacco Cessation Counseling and Screening (12+) [code = Tobacco Cessation Counseling and Screening (12+)] [facility] Scheduled Test 1984 00:00:00 Tobacco Cessation Counseling and Screening (12+) [code = Tobacco Cessation Counseling and Screening (12+)] [facility] Scheduled Test 1984 00:00:00 Tobacco Cessation Counseling and Screening (12+) [code = Tobacco Cessation Counseling and Screening (12+)] [facility] 1984 00:00:00 Tobacco Cessation Counseling and Screening (12+) [code = Tobacco Cessation Counseling and Screening (12+)] [facility] 1984 00:00:00 Tobacco Cessation Counseling and Screening (12+) [code = Tobacco Cessation Counseling and Screening (12+)] [facility] Scheduled Test 1984 00:00:00 Tobacco Cessation Counseling and Screening (12+) [code = Tobacco Cessation Counseling and Screening (12+)] [facility] Scheduled Test 1984 00:00:00 Tobacco Cessation Counseling and Screening (12+) [code = Tobacco Cessation Counseling and Screening (12+)] [facility] 1984 00:00:00 Tobacco Cessation Counseling and Screening (12+) [code = Tobacco Cessation Counseling and Screening (12+)] [facility] 1984 00:00:00 Tobacco Cessation Counseling and Screening (12+) [code = Tobacco Cessation Counseling and Screening (12+)] [facility] 1972 00:00:00 Screening for malignant neoplasm of breast (procedure) [code = 130324375] [facility] 1972 00:00:00 CT Colonography (combo) [code = CT Colonography (combo)] [facility] 1972 00:00:00 Screening for malignant neoplasm of colon (procedure) [code = 795682106] [facility] 1972 00:00:00 Screening for malignant neoplasm of colon (procedure) [code = 274967512] [facility] 1972 00:00:00 Screening for malignant neoplasm of colon (procedure) [code = 456883761] [facility] 1972 00:00:00 Screening for malignant neoplasm of colon (procedure) [code = 873399629] [facility] 1972 00:00:00 Sigmoidoscopy [code = Sigmoidoscopy] [facility] 1972 00:00:00 Screening for malignant neoplasm of breast (procedure) [code = 397730643] [facility] 1972 00:00:00 CT Colonography (combo) [code = CT Colonography (combo)] [facility] 1972 00:00:00 Screening for malignant neoplasm of colon (procedure) [code = 436682554] [facility] 1972 00:00:00 Screening for malignant neoplasm of colon (procedure) [code = 634377130] [facility] 1972 00:00:00 Screening for malignant neoplasm of colon (procedure) [code = 222026977] [facility] 1972 00:00:00 Screening for malignant neoplasm of colon (procedure) [code = 241397283] [facility] 1972 00:00:00 Sigmoidoscopy [code = Sigmoidoscopy] [facility] 1972 00:00:00 Screening for malignant neoplasm of breast (procedure) [code = 826779535] [facility] 1972 00:00:00 CT Colonography (combo) [code = CT Colonography (combo)] [facility] 1972 00:00:00 Screening for malignant neoplasm of colon (procedure) [code = 634876346] [facility] 1972 00:00:00 Screening for malignant neoplasm of colon (procedure) [code = 771770193] [facility] 1972 00:00:00 Screening for malignant neoplasm of colon (procedure) [code = 434418876] [facility] 1972 00:00:00 Screening for malignant neoplasm of colon (procedure) [code = 715988490] [facility] 1972 00:00:00 Sigmoidoscopy [code = Sigmoidoscopy] [facility] 1972 00:00:00 Screening for malignant neoplasm of breast (procedure) [code = 905880507] [facility] 1972 00:00:00 CT Colonography (combo) [code = CT Colonography (combo)] [facility] 1972 00:00:00 Screening for malignant neoplasm of colon (procedure) [code = 999238846] [facility] 1972 00:00:00 Screening for malignant neoplasm of colon (procedure) [code = 371056332] [facility] 1972 00:00:00 Screening for malignant neoplasm of colon (procedure) [code = 408052106] [facility] 1972 00:00:00 Screening for malignant neoplasm of colon (procedure) [code = 716709461] [facility] 1972 00:00:00 Sigmoidoscopy [code = Sigmoidoscopy] [facility] 1972 00:00:00 Screening for malignant neoplasm of breast (procedure) [code = 423122352] [facility] 1972 00:00:00 CT Colonography (combo) [code = CT Colonography (combo)] [facility] 1972 00:00:00 Screening for malignant neoplasm of colon (procedure) [code = 991246077] [facility] 1972 00:00:00 Screening for malignant neoplasm of colon (procedure) [code = 621016429] [facility] 1972 00:00:00 Screening for malignant neoplasm of colon (procedure) [code = 655938549] [facility] 1972 00:00:00 Screening for malignant neoplasm of colon (procedure) [code = 592291095] [facility] 1972 00:00:00 Sigmoidoscopy [code = Sigmoidoscopy] [facility] 1972 00:00:00 Screening for malignant neoplasm of breast (procedure) [code = 722540464] [facility] 1972 00:00:00 CT Colonography (combo) [code = CT Colonography (combo)] [facility] 1972 00:00:00 Screening for malignant neoplasm of colon (procedure) [code = 728828920] [facility] 1972 00:00:00 Screening for malignant neoplasm of colon (procedure) [code = 296450564] [facility] 1972 00:00:00 Screening for malignant neoplasm of colon (procedure) [code = 878467674] [facility] 1972 00:00:00 Screening for malignant neoplasm of colon (procedure) [code = 031506017] [facility] 1972 00:00:00 Sigmoidoscopy [code = Sigmoidoscopy] [facility] 1972 00:00:00 Screening for malignant neoplasm of breast (procedure) [code = 672441773] [facility] 1972 00:00:00 CT Colonography (combo) [code = CT Colonography (combo)] [facility] 1972 00:00:00 Screening for malignant neoplasm of colon (procedure) [code = 483919375] [facility] 1972 00:00:00 Screening for malignant neoplasm of colon (procedure) [code = 862642561] [facility] 1972 00:00:00 Screening for malignant neoplasm of colon (procedure) [code = 150335728] [facility] 1972 00:00:00 Screening for malignant neoplasm of colon (procedure) [code = 995171210] [facility] 1972 00:00:00 Sigmoidoscopy [code = Sigmoidoscopy] [facility] 1972 00:00:00 Screening for malignant neoplasm of breast (procedure) [code = 796159442] [facility] 1972 00:00:00 CT Colonography (combo) [code = CT Colonography (combo)] [facility] 1972 00:00:00 Screening for malignant neoplasm of colon (procedure) [code = 869708578] [facility] 1972 00:00:00 Screening for malignant neoplasm of colon (procedure) [code = 931057996] [facility] 1972 00:00:00 Screening for malignant neoplasm of colon (procedure) [code = 102754290] [facility] 1972 00:00:00 Screening for malignant neoplasm of colon (procedure) [code = 645335730] [facility] 1972 00:00:00 Sigmoidoscopy [code = Sigmoidoscopy] [facility] 1972 00:00:00 Screening for malignant neoplasm of breast (procedure) [code = 195456156] [facility] 1972 00:00:00 CT Colonography (combo) [code = CT Colonography (combo)] [facility] 1972 00:00:00 Screening for malignant neoplasm of colon (procedure) [code = 219585811] [facility] 1972 00:00:00 Screening for malignant neoplasm of colon (procedure) [code = 485877095] [facility] 1972 00:00:00 Screening for malignant neoplasm of colon (procedure) [code = 325940582] [facility] 1972 00:00:00 Screening for malignant neoplasm of colon (procedure) [code = 084661646] [facility] 1972 00:00:00 Sigmoidoscopy [code = Sigmoidoscopy] [facility] 1972 00:00:00 Screening for malignant neoplasm of breast (procedure) [code = 880075306] [facility] 1972 00:00:00 CT Colonography (combo) [code = CT Colonography (combo)] [facility] 1972 00:00:00 Screening for malignant neoplasm of colon (procedure) [code = 418820819] [facility] 1972 00:00:00 Screening for malignant neoplasm of colon (procedure) [code = 141053807] [facility] 1972 00:00:00 Screening for malignant neoplasm of colon (procedure) [code = 278545607] [facility] 1972 00:00:00 Screening for malignant neoplasm of colon (procedure) [code = 555439907] [facility] 1972 00:00:00 Sigmoidoscopy [code = Sigmoidoscopy] [facility] 1972 00:00:00 Screening for malignant neoplasm of breast (procedure) [code = 671475148] [facility] 1972 00:00:00 CT Colonography (combo) [code = CT Colonography (combo)] [facility] 1972 00:00:00 Screening for malignant neoplasm of colon (procedure) [code = 776877503] [facility] 1972 00:00:00 Screening for malignant neoplasm of colon (procedure) [code = 012504263] [facility] 1972 00:00:00 Screening for malignant neoplasm of colon (procedure) [code = 370926769] [facility] 1972 00:00:00 Screening for malignant neoplasm of colon (procedure) [code = 315154727] [facility] 1972 00:00:00 Sigmoidoscopy [code = Sigmoidoscopy] [facility] 1972 00:00:00 Screening for malignant neoplasm of breast (procedure) [code = 067431624] [facility] 1972 00:00:00 CT Colonography (combo) [code = CT Colonography (combo)] [facility] 1972 00:00:00 Screening for malignant neoplasm of colon (procedure) [code = 241759196] [facility] 1972 00:00:00 Screening for malignant neoplasm of colon (procedure) [code = 918947386] [facility] 1972 00:00:00 Screening for malignant neoplasm of colon (procedure) [code = 977223601] [facility] 1972 00:00:00 Screening for malignant neoplasm of colon (procedure) [code = 818457394] [facility] 1972 00:00:00 Sigmoidoscopy [code = Sigmoidoscopy] [facility] 1972 00:00:00 Screening for malignant neoplasm of breast (procedure) [code = 992578526] [facility] 1972 00:00:00 CT Colonography (combo) [code = CT Colonography (combo)] [facility] 1972 00:00:00 Screening for malignant neoplasm of colon (procedure) [code = 761593180] [facility] 1972 00:00:00 Screening for malignant neoplasm of colon (procedure) [code = 705197499] [facility] 1972 00:00:00 Screening for malignant neoplasm of colon (procedure) [code = 110253151] [facility] 1972 00:00:00 Screening for malignant neoplasm of colon (procedure) [code = 994950687] [facility] 1972 00:00:00 Sigmoidoscopy [code = Sigmoidoscopy] [facility] 1972 00:00:00 Screening for malignant neoplasm of breast (procedure) [code = 779090552] [facility] 1972 00:00:00 CT Colonography (combo) [code = CT Colonography (combo)] [facility] 1972 00:00:00 Screening for malignant neoplasm of colon (procedure) [code = 519001849] [facility] 1972 00:00:00 Screening for malignant neoplasm of colon (procedure) [code = 689876541] [facility] 1972 00:00:00 Screening for malignant neoplasm of colon (procedure) [code = 826672029] [facility] 1972 00:00:00 Screening for malignant neoplasm of colon (procedure) [code = 931833097] [facility] 1972 00:00:00 Sigmoidoscopy [code = Sigmoidoscopy] [facility] 1972 00:00:00 Screening for malignant neoplasm of breast (procedure) [code = 100028368] [facility] 1972 00:00:00 CT Colonography (combo) [code = CT Colonography (combo)] [facility] 1972 00:00:00 Screening for malignant neoplasm of colon (procedure) [code = 242321567] [facility] 1972 00:00:00 Screening for malignant neoplasm of colon (procedure) [code = 275874321] [facility] 1972 00:00:00 Screening for malignant neoplasm of colon (procedure) [code = 382728037] [facility] 1972 00:00:00 Screening for malignant neoplasm of colon (procedure) [code = 126671126] [facility] 1972 00:00:00 Sigmoidoscopy [code = Sigmoidoscopy] [facility] 1972 00:00:00 Screening for malignant neoplasm of breast (procedure) [code = 879712990] [facility] 1972 00:00:00 CT Colonography (combo) [code = CT Colonography (combo)] [facility] 1972 00:00:00 Screening for malignant neoplasm of colon (procedure) [code = 760284716] [facility] 1972 00:00:00 Screening for malignant neoplasm of colon (procedure) [code = 677588232] [facility] 1972 00:00:00 Screening for malignant neoplasm of colon (procedure) [code = 596793074] [facility] 1972 00:00:00 Screening for malignant neoplasm of colon (procedure) [code = 395263633] [facility] 1972 00:00:00 Sigmoidoscopy [code = Sigmoidoscopy] [facility] 1972 00:00:00 Screening for malignant neoplasm of breast (procedure) [code = 200990316] [facility] 1972 00:00:00 CT Colonography (combo) [code = CT Colonography (combo)] [facility] 1972 00:00:00 Screening for malignant neoplasm of colon (procedure) [code = 642288240] [facility] 1972 00:00:00 Screening for malignant neoplasm of colon (procedure) [code = 071738676] [facility] 1972 00:00:00 Screening for malignant neoplasm of colon (procedure) [code = 786303900] [facility] 1972 00:00:00 Screening for malignant neoplasm of colon (procedure) [code = 277965025] [facility] 1972 00:00:00 Sigmoidoscopy [code = Sigmoidoscopy] [facility] 1972 00:00:00 Screening for malignant neoplasm of breast (procedure) [code = 609886706] [facility] 1972 00:00:00 CT Colonography (combo) [code = CT Colonography (combo)] [facility] 1972 00:00:00 Screening for malignant neoplasm of breast (procedure) [code = 116108313] [facility] 1972 00:00:00 CT Colonography (combo) [code = CT Colonography (combo)] [facility] 1972 00:00:00 Screening for malignant neoplasm of colon (procedure) [code = 603036743] [facility] 1972 00:00:00 Screening for malignant neoplasm of colon (procedure) [code = 456208408] [facility] 1972 00:00:00 Screening for malignant neoplasm of colon (procedure) [code = 305873386] [facility] 1972 00:00:00 Screening for malignant neoplasm of colon (procedure) [code = 370966892] [facility] 1972 00:00:00 Sigmoidoscopy [code = Sigmoidoscopy] [facility] 1972 00:00:00 Screening for malignant neoplasm of colon (procedure) [code = 864524039] [facility] 1972 00:00:00 Screening for malignant neoplasm of colon (procedure) [code = 214895120] [facility] 1972 00:00:00 Screening for malignant neoplasm of colon (procedure) [code = 737605123] [facility] 1972 00:00:00 Screening for malignant neoplasm of colon (procedure) [code = 017402185] [facility] 1972 00:00:00 Sigmoidoscopy [code = Sigmoidoscopy] [facility] 1972 00:00:00 Screening for malignant neoplasm of breast (procedure) [code = 857679613] [facility] 1972 00:00:00 CT Colonography (combo) [code = CT Colonography (combo)] [facility] 1972 00:00:00 Screening for malignant neoplasm of colon (procedure) [code = 054202951] [facility] 1972 00:00:00 Screening for malignant neoplasm of colon (procedure) [code = 326452911] [facility] 1972 00:00:00 Screening for malignant neoplasm of colon (procedure) [code = 734683482] [facility] 1972 00:00:00 Screening for malignant neoplasm of colon (procedure) [code = 380530449] [facility] 1972 00:00:00 Sigmoidoscopy [code = Sigmoidoscopy] [facility] 1972 00:00:00 Screening for malignant neoplasm of breast (procedure) [code = 355844999] [facility] 1972 00:00:00 CT Colonography (combo) [code = CT Colonography (combo)] [facility] 1972 00:00:00 Screening for malignant neoplasm of colon (procedure) [code = 569193708] [facility] 1972 00:00:00 Screening for malignant neoplasm of colon (procedure) [code = 464611150] [facility] 1972 00:00:00 Screening for malignant neoplasm of colon (procedure) [code = 582045506] [facility] 1972 00:00:00 Screening for malignant neoplasm of colon (procedure) [code = 307408464] [facility] 1972 00:00:00 Sigmoidoscopy [code = Sigmoidoscopy] [facility] 1972 00:00:00 Screening for malignant neoplasm of breast (procedure) [code = 812478896] [facility] 1972 00:00:00 CT Colonography (combo) [code = CT Colonography (combo)] [facility] 1972 00:00:00 Screening for malignant neoplasm of colon (procedure) [code = 726576115] [facility] 1972 00:00:00 Screening for malignant neoplasm of colon (procedure) [code = 533295398] [facility] 1972 00:00:00 Screening for malignant neoplasm of colon (procedure) [code = 750297056] [facility] 00:00:00 Screening for malignant neoplasm of colon (procedure) [code = 299792685] [facility] 00:00:00 Sigmoidoscopy [code = Sigmoidoscopy] [facility] 1972 00:00:00 Screening for malignant neoplasm of breast (procedure) [code = 396146873] [facility] 1972 00:00:00 CT Colonography (combo) [code = CT Colonography (combo)] [facility] 1972 00:00:00 Screening for malignant neoplasm of colon (procedure) [code = 690186630] [facility] 1972 00:00:00 Screening for malignant neoplasm of colon (procedure) [code = 784618304] [facility] 1972 00:00:00 Screening for malignant neoplasm of colon (procedure) [code = 254097602] [facility] 1972 00:00:00 Screening for malignant neoplasm of colon (procedure) [code = 876703401] [facility] 1972 00:00:00 Sigmoidoscopy [code = Sigmoidoscopy] [facility] 1972 00:00:00 Screening for malignant neoplasm of breast (procedure) [code = 996395082] [facility] 1972 00:00:00 CT Colonography (combo) [code = CT Colonography (combo)] [facility] 1972 00:00:00 Screening for malignant neoplasm of colon (procedure) [code = 391209764] [facility] 1972 00:00:00 Screening for malignant neoplasm of colon (procedure) [code = 418467724] [facility] 1972 00:00:00 Screening for malignant neoplasm of colon (procedure) [code = 672990262] [facility] 1972 00:00:00 Screening for malignant neoplasm of colon (procedure) [code = 903885542] [facility] 1972 00:00:00 Sigmoidoscopy [code = Sigmoidoscopy] [facility] 1972 00:00:00 Screening for malignant neoplasm of breast (procedure) [code = 494725235] [facility] 1972 00:00:00 CT Colonography (combo) [code = CT Colonography (combo)] [facility] 1972 00:00:00 Screening for malignant neoplasm of colon (procedure) [code = 019133935] [facility] 1972 00:00:00 Screening for malignant neoplasm of colon (procedure) [code = 637446523] [facility] 1972 00:00:00 Screening for malignant neoplasm of colon (procedure) [code = 495297738] [facility] 1972 00:00:00 Screening for malignant neoplasm of colon (procedure) [code = 764299898] [facility] 1972 00:00:00 Sigmoidoscopy [code = Sigmoidoscopy] [facility] 1972 00:00:00 Screening for malignant neoplasm of breast (procedure) [code = 419098745] [facility] 1972 00:00:00 CT Colonography (combo) [code = CT Colonography (combo)] [facility] 1972 00:00:00 Screening for malignant neoplasm of colon (procedure) [code = 126237052] [facility] 1972 00:00:00 Screening for malignant neoplasm of colon (procedure) [code = 134487331] [facility] 1972 00:00:00 Screening for malignant neoplasm of colon (procedure) [code = 033900675] [facility] 1972 00:00:00 Screening for malignant neoplasm of colon (procedure) [code = 428350169] [facility] 1972 00:00:00 Sigmoidoscopy [code = Sigmoidoscopy] [facility] 1972 00:00:00 Screening for malignant neoplasm of breast (procedure) [code = 162017665] [facility] 1972 00:00:00 CT Colonography (combo) [code = CT Colonography (combo)] [facility] 1972 00:00:00 Screening for malignant neoplasm of colon (procedure) [code = 097291247] [facility] 1972 00:00:00 Screening for malignant neoplasm of colon (procedure) [code = 351737854] [facility] 1972 00:00:00 Screening for malignant neoplasm of colon (procedure) [code = 901827610] [facility] 1972 00:00:00 Screening for malignant neoplasm of colon (procedure) [code = 325642962] [facility] 1972 00:00:00 Sigmoidoscopy [code = Sigmoidoscopy] [facility] 1972 00:00:00 Screening for malignant neoplasm of breast (procedure) [code = 207274106] [facility] 1972 00:00:00 CT Colonography (combo) [code = CT Colonography (combo)] [facility] 1972 00:00:00 Screening for malignant neoplasm of colon (procedure) [code = 805135047] [facility] 1972 00:00:00 Screening for malignant neoplasm of colon (procedure) [code = 069964255] [facility] 1972 00:00:00 Screening for malignant neoplasm of colon (procedure) [code = 834776419] [facility] 1972 00:00:00 Screening for malignant neoplasm of colon (procedure) [code = 852992290] [facility] 1972 00:00:00 Sigmoidoscopy [code = Sigmoidoscopy] [facility] 1972 00:00:00 Screening for malignant neoplasm of breast (procedure) [code = 468901798] [facility] 1972 00:00:00 CT Colonography (combo) [code = CT Colonography (combo)] [facility] 1972 00:00:00 Screening for malignant neoplasm of colon (procedure) [code = 044869664] [facility] 1972 00:00:00 Screening for malignant neoplasm of colon (procedure) [code = 506503276] [facility] 1972 00:00:00 Screening for malignant neoplasm of colon (procedure) [code = 272876092] [facility] 1972 00:00:00 Screening for malignant neoplasm of colon (procedure) [code = 629366351] [facility] 1972 00:00:00 Sigmoidoscopy [code = Sigmoidoscopy] [facility] 1972 00:00:00 Screening for malignant neoplasm of breast (procedure) [code = 484720334] [facility] 1972 00:00:00 CT Colonography (combo) [code = CT Colonography (combo)] [facility] 1972 00:00:00 Screening for malignant neoplasm of colon (procedure) [code = 765444261] [facility] 1972 00:00:00 Screening for malignant neoplasm of colon (procedure) [code = 947326543] [facility] 1972 00:00:00 Screening for malignant neoplasm of colon (procedure) [code = 931893349] [facility] 1972 00:00:00 Screening for malignant neoplasm of colon (procedure) [code = 860783420] [facility] 1972 00:00:00 Sigmoidoscopy [code = Sigmoidoscopy] [facility] 1972 00:00:00 Screening for malignant neoplasm of breast (procedure) [code = 054400494] [facility] 1972 00:00:00 CT Colonography (combo) [code = CT Colonography (combo)] [facility] 1972 00:00:00 Screening for malignant neoplasm of colon (procedure) [code = 137946305] [facility] 1972 00:00:00 Screening for malignant neoplasm of colon (procedure) [code = 432404661] [facility] 1972 00:00:00 Screening for malignant neoplasm of colon (procedure) [code = 041429422] [facility] 1972 00:00:00 Screening for malignant neoplasm of colon (procedure) [code = 305086271] [facility] 1972 00:00:00 Sigmoidoscopy [code = Sigmoidoscopy] [facility] 1972 00:00:00 Screening for malignant neoplasm of breast (procedure) [code = 674882037] [facility] 1972 00:00:00 CT Colonography (combo) [code = CT Colonography (combo)] [facility] 1972 00:00:00 Screening for malignant neoplasm of colon (procedure) [code = 031268841] [facility] 1972 00:00:00 Screening for malignant neoplasm of colon (procedure) [code = 910297188] [facility] 1972 00:00:00 Screening for malignant neoplasm of colon (procedure) [code = 447462388] [facility] 1972 00:00:00 Screening for malignant neoplasm of colon (procedure) [code = 654263423] [facility] 1972 00:00:00 Sigmoidoscopy [code = Sigmoidoscopy] [facility] 1972 00:00:00 Screening for malignant neoplasm of breast (procedure) [code = 995849043] [facility] 1972 00:00:00 CT Colonography (combo) [code = CT Colonography (combo)] [facility] 1972 00:00:00 Screening for malignant neoplasm of colon (procedure) [code = 432491105] [facility] 1972 00:00:00 Screening for malignant neoplasm of colon (procedure) [code = 693251676] [facility] 1972 00:00:00 Screening for malignant neoplasm of colon (procedure) [code = 012936760] [facility] 1972 00:00:00 Screening for malignant neoplasm of colon (procedure) [code = 278476363] [facility] 1972 00:00:00 Sigmoidoscopy [code = Sigmoidoscopy] [facility] 1972 00:00:00 Screening for malignant neoplasm of breast (procedure) [code = 212368287] [facility] 1972 00:00:00 CT Colonography (combo) [code = CT Colonography (combo)] [facility] 1972 00:00:00 Screening for malignant neoplasm of colon (procedure) [code = 770634065] [facility] 1972 00:00:00 Screening for malignant neoplasm of colon (procedure) [code = 884444737] [facility] 1972 00:00:00 Screening for malignant neoplasm of colon (procedure) [code = 669670881] [facility] 1972 00:00:00 Screening for malignant neoplasm of colon (procedure) [code = 526243376] [facility] 1972 00:00:00 Sigmoidoscopy [code = Sigmoidoscopy] [facility] Plan of Care Not e [code = 53126-2] Goal Plan of Care Not e [code = 69954-7] Goal Plan of Care Not e [code = 37840-3] Goal Plan of Care Not e [code = 83226-4] Goal Plan of Care Not e [code = 12750-9] Goal Plan of Care Not e [code = 91452-7] Goal Plan of Care Not e [code = 96590-7] Goal Plan of Care Not e [code = 95072-6] Goal Plan of Care Not e [code = 93212-1] Goal Plan of Care Not e [code = 26526-3] Goal Plan of Care Not e [code = 01156-1] Goal Plan of Care Not e [code = 11306-5] Goal Plan of Care Not e [code = 16900-5] Goal Plan of Care Not e [code = 19477-7] Goal Plan of Care Not e [code = 70042-7] Goal Plan of Care Not e [code = 87568-6] Goal Plan of Care Not e [code = 97282-2] Goal Plan of Care Not e [code = 16977-3] Goal Plan of Care Not e [code = 95176-0] Goal Plan of Care Not e [code = 82392-8] Goal Plan of Care Not e [code = 23015-5] Goal Plan of Care Not e [code = 78041-5] Goal Plan of Care Not e [code = 64537-3] Goal Plan of Care Not e [code = 47347-7] Goal Plan of Care Not e [code = 28625-3] Goal Plan of Care Not e [code = 16388-5] Goal Plan of Care Not e [code = 59023-2] Goal Plan of Care Not e [code = 51866-2] Goal Plan of Care Not e [code = 60752-1] Goal Plan of Care Not e [code = 05580-6] Goal Plan of Care Not e [code = 35888-9] Goal Plan of Care Not e [code = 84319-6] Goal Plan of Care Not e [code = 43275-1] Goal Plan of Care Not e [code = 28726-8] Goal Plan of Care Not e [code = 52628-9] Encounters Start Date/Time End Date/Time Encounter Type Admission Type Attending [facility] Emergency Department Facility Care Department Encounter ID Source 2023-06-16 09:32:36 Inpatient AYDEE DICKENS [facility] [id number] [facility] 2023-06-16 09:32:09 Inpatient AYDEE DICKENS [facility] [id number] [facility] 2023-06-16 09:31:53 Inpatient AYDEE DICKENS [facility] [id number] [facility] 2023-06-14 07:46:02 Inpatient AYDEE DICKENS [facility] [id number] [facility] 2023-06-14 07:39:22 [facility] [id number] [facility] 2023-06-14 06:38:38 Inpatient AYDEE DICKENS [facility] [id number] [facility] 2023-06-13 13:44:18 Inpatient EL CARA BURGESS [facility] [id number] [facility] 2023-06-13 11:45:24 Inpatient AYDEE DICKENS [facility] [id number] [facility] 2023-05-08 11:21:00 Outpatient EL ADAM GARCIA [facility] Surgery [id number] [facility] 2023-04-01 14:26:29 Inpatient ER THOMAS LOZOYA [facility] [id number] [facility] 2023-03-31 09:24:52 Inpatient ER MARIAH ALDRIDGE [facility] [id number] [facility] 2021-05-20 18:48:04 Emergency [facility] [id number] [facility] 2021-05-20 12:43:40 Emergency [facility] [id number] [facility] 2023-06-13 03:43:00 2023-06-16 19:45:00 Inpatient ER AYDEE GO [facility] Internal Med [id number] [facility] 2023-06-13 03:43:00 2023-06-16 19:45:00 Hospital Encounter ER Cara uBrgess Sahar [facility] [id number] [facility] [place]23-06-15 00:00:00 2023-06-15 00:00:00 Orders Only System, Provider Not In [facility] [id number] [facility] 2023-06-13 16:30:06 2023-06-13 16:30:06 Outpatient AYDEE DICKENS [facility] [id number] [facility] 2023-06-13 00:00:00 2023-06-13 00:00:00 Orders Only [facility] [id number] [facility] 2023-06-13 00:00:00 2023-06-13 00:00:00 Travel [facility] [id number] [facility] 2023-06-12 00:00:00 2023-06-12 00:00:00 Telephone Dallas Gomez [facility] [id number] [facility] 2023-05-28 06:45:00 2023-06-04 17:36:00 Inpatient ADAM BRANTLEY [facility] Surgery [id number] [facility] 2023-05-28 06:45:00 2023-06-04 17:36:00 Hospital Encounter Adam Brantley [facility] [id number] [facility] 2023-06-01 09:10:00 2023-06-01 13:00:00 Anesthesia Event Harry Newsome Mujtaba Ahmad [facility] [id number] [facility] 2023-06-01 09:00:00 2023-06-01 11:30:00 Surgery Adam Garcia [facility] [id number] [facility] 2023-06-01 09:47:57 2023-06-01 09:47:57 Outpatient ADAM BRANTLEY [facility] [id number] [facility] 2023-06-01 09:40:34 2023-06-01 09:40:34 Outpatient ADAM BRANTLEY [facility] [id number] [facility] 2023-05-31 09:25:55 2023-05-31 23:59:00 Inpatient ADAM BRANTLEY [facility] [id number] [facility] 2023-05-31 09:00:00 2023-05-31 23:59:00 Hospital Encounter Adam Garcia [facility] [id number] [facility] 2023-05-28 18:15:29 2023-05-28 18:15:29 Out[facility] [id number] [facility] 2023-05-28 08:30:00 2023-05-28 11:54:00 Anesthesia Event Yue Bui [facility] [id number] [facility] 2023-05-28 11:41:14 2023-05-28 11:41:14 Outpatient ADAM BRANTLEY [facility] [id number] [facility] 2023-05-28 08:30:00 2023-05-28 11:00:00 Surgery Adam Garcia [facility] [id number] [facility] 2023-05-28 10:00:47 2023-05-28 10:00:47 Outpatient ADAM BRANTLEY [facility] [id number] [facility] 2023-05-28 00:00:00 2023-05-28 00:00:00 Travel [facility] [id number] [facility] 2023-05-26 09:00:00 2023-05-26 09:00:00 Hospital Encounter Adam Garcia [facility] [id number] [facility] 2023-05-26 00:00:00 2023-05-26 00:00:00 Outpatient ADAM BRANTLEY [facility] [id number] [facility] 2023-05-26 00:00:00 2023-05-26 00:00:00 Outpatient [facility]TTE [facility] [id number] [facility] 2023-05-26 00:00:00 2023-05-26 00:00:00 Travel [facility] [id number] [facility] 2023-05-13 11:43:03 2023-05-13 11:43:03 Outpatient [facility] 1025 Adria Martínez 2023-05-12 00:00:00 2023-05-12 00:00:00 Orders Only Adam Garcia [facility] [id number] [facility] 2023-05-08 14:11:21 2023-05-08 14:11:21 Outpatient [facility] [id number] Adria Martínez 2023-03-29 19:25:00 2023-04-02 20:48:00 Inpatient ER THOMAS LOZOYA [facility] [id number] [facility] 2023-03-29 19:25:00 2023-04-02 20:48:00 Hospital Encounter ER Connie Davey Shireen Kulkarni, Mrinalini Zade [facility] [id number] [facility] 2023-03-31 08:32:56 2023-03-31 00:00:00 Inpatient ER MARIAH ALDRIDGE [facility] [id number] [facility] 2023-03-30 10:24:12 2023-03-30 23:59:00 Outpatient ER CONNIE DAVEY [facility] [id number] [facility] 2023-03-30 09:40:00 2023-03-30 23:59:00 Hospital Encounter Connie Davey [facility] [id number] [facility] 2023-03-30 13:46:20 2023-03-30 13:46:20 [facility] [id number] [facility] 2023-03-30 13:46:14 2023-03-30 13:46:14 Outpatient ER MARIAH ALDRIDGE [facility] [id number] [facility] 2023-03-30 10:24:04 2023-03-30 10:24:04 Outpatient ER CONNIE DAVEY [facility] [id number] [facility] 2023-03-30 00:00:00 2023-03-30 00:00:00 Orders Only [facility] [id number] [facility] 2023-03-30 00:00:00 2023-03-30 00:00:00 Travel [facility] [id number] [facility] 2022-12-11 08:56:00 2022-12-11 15:29:00 Emergency X Alfonso ALVARADO [facility] ERT [id number] [facility] 2022-12-11 08:56:00 2022-12-11 15:29:00 Emergency Alfonso Alvarado [facility] [id number] [id number] [id number] [id number] [facility] 2022-11-17 17:25:00 2022-11-18 01:19:00 Emergency X RITCHIE WARREN [facility] ERT [id number] [facility] 2022-11-17 17:25:00 2022-11-18 01:19:00 Emergency Ritchie Warren [facility] 1.2.840.114 350.1.13.10 4.2.7.2.686 [id number] [facility] 2022-08-28 00:00:00 2022-08-28 00:00:00 Patient Outreach Shy Beckman [id number] 350.1.13.10 4.2.7.2.686 [id number] [facility] 2022-08-20 00:00:00 2022-08-20 00:00:00 Patient Outreach Shy Beckman [id number] 4.2.7.2.686 [id number] [facility] 2022-08-02 17:30:00 2022-08-03 14:29:00 Outpatient ER PARRISH WHEATLEY [facility] Neurology [id number] [facility] 2022-08-02 17:30:00 2022-08-03 14:29:00 Hospital Encounter ER Halima Mendoza Kinjal M Ibe, Chimkama Ngozi Cynthia [facility] [id number] [facility] 2022-08-03 00:00:00 2022-08-03 00:00:00 Orders Only [facility] [id number] [facility] 2022-08-02 00:00:00 2022-08-02 00:00:00 Travel [facility] [id number] [facility] 2022-07-31 11:42:00 2022-08-01 21:48:00 Inpatient X LORENZA LOWRY [facility] [id number] [facility] 2022-07-31 11:42:00 2022-08-01 21:48:00 Hospital Encounter Sav Rondon Yaman [facility] 1.2.840.114 350.1.13.10 4.2.7.2.686 [id number] [facility] 2022-08-01 00:00:00 2022-08-01 00:00:00 Transition of Care Maria Teresa Nicole 1.2.840.114 350.1.13.10 4.2.7.2.686 [id number] [facility] 2022-07-28 14:41:38 2022-07-28 14:41:38 Outpatient [facility] 9 Adria Galan Mauricio 2022-07-28 00:00:00 2022-07-28 00:00:00 Outpatient Visit [id number] 2022-07-24 13:24:40 2022-07-24 13:24:40 Outpatient [facility] 5 Adria Martínez 2022-05-23 14:51:01 2022-05-23 14:51:01 Outpatient [facility] 1104 Adria Angelia Mauricio 2022-05-23 00:00:00 2022-05-23 00:00:00 Outpatient Visit [id number] 2022-05-04 20:22:00 2022-05-08 14:44:00 Outpatient X CHANTEL BOJORQUEZ PABLO [facility] [id number] [facility] 2022-05-04 20:22:00 2022-05-08 14:44:00 Emergency Brandyn Ibrahim [facility] 1.2.840.114 350.1.13.10 4.2.7.2.686 [id number] [facility] 2022-04-13 13:06:00 2022-04-15 15:00:00 Inpatient X CONRAD [facility] [id number] [facility] 2022-04-13 13:06:00 2022-04-15 15:00:00 Hospital Encounter Sapna Vargas Muhammad Zeeshan [facility] 1.2840.114 350.1.13.10 4.2.7.2.686 [id number] [facility] 2022-02-19 10:20:00 2022-02-19 10:30:00 Imm/Inj Visit [place], [place] Jose Santiago [facility] 1.20.114 350.1.13.10 4.2.7.2.686 [id number] [facility] 2022-02-19 10:20:00 2022-02-19 10:20:00 Outpatient R JOSE PAK [facility] [id number] [facility] 2021-11-23 15:07:00 2021-11-23 17:03:00 Emergency X NICHELLE VIRK [facility] [id number] [facility] 2021-11-23 15:07:00 2021-11-23 17:03:00 Emergency Sav Rondon Folusho F [facility] 1.2.840.114 350.1.13.10 4.2.7.2.686 [id number] [facility] 2021-11-21 09:40:00 2021-11-21 09:40:00 Outpatient R [facility] [id number] [facility] 2021-05-24 09:30:00 2021-05-24 09:30:00 Outpatient R JOSE PAK [facility] [id number] [facility] 2021-05-24 08:47:51 2021-05-24 08:57:51 Imm/Inj Visit Vaccine [place] Dangelo Pak [facility] 1.2840.114 350.1.13.10 4.2.7.2.686 [id number] [facility] 2021-05-03 09:40:00 2021-05-03 09:59:35 Outpatient R JOSE PAK [facility] [id number] [facility] 2021-05-03 09:17:43 2021-05-03 09:59:35 Imm/Inj Visit Vaccine, [place] Dangelo Pak [facility] 1.840.114 350.1.13.10 4.2.7.2.686 [id number] [facility] 2021-04-16 00:00:00 2021-04-16 00:00:00 Orders Only Doctor Unassigned, [place] [facility] 1.2.840.114 350.1.13.10 4.2.7.2.686 [id number] [facility] 2021-03-17 00:00:00 2021-03-17 00:00:00 Telephone Miky Nava [facility] 1.2840.114 350.1.13.10 4.2.7.2.686 [id number] [facility] 2021-03-16 20:08:00 2021-03-16 23:24:00 Emergency Fabrice Chakraborty [facility] 1.2840.114 350.1.13.10 4.2.7.2.686 [id number] [facility] 2021-03-14 18:59:34 2021-03-14 20:19:13 Urgent Care Lydia Desouza Unknown, Attending [facility] Prem?[facility] 1.2.840.114 350.1.13.10 4.2.7.2.686 [id number] [facility] 2021-03-14 19:00:00 2021-03-14 19:00:00 Outpatient R UNKNOWN, ATTENDING [facility] [id number] [facility] 2021-02-19 10:49:00 2021-02-19 14:48:00 Emergency [place]roy Anali S [facility] 1..840.114 350.1.13.10 4.2.7.2.686 [id number] [facility] 2019-03-09 00:00:00 2019-03-09 00:00:[address] [facility] 1..840.114 350.1.13.10 4.2.7.2.686 [id number] 2019-03-09 00:00:00 2019-03-09 00:00:[address] [facility] 1.2.840.114 350.1.13.10 4.2.7.2.686 [id number] [facility] Results Test Description Test Time Test Comments Results Result Co mments Source BLOOD [id number] 07:00:09* Test Item Value Reference Range Interpretation Comme nts CULTURE (BEAKER) (test code = 1095) No growth in 5 days T-SPOT(R).[id number] 18:35:00* Test Item Value Reference Range Interpretation Comme nts T-SPOT.TB (test code = 3093441) Negative SeeBelow Normal Value: Ne gativeA negative [...] CORRECTED FOR NEG CONTROL (test code = 20150905) 0 NEGATIVE CONTROL (test code = 4539531) Passed POSITIVE CONTROL (test code = 20150907) Passed LYNDSAY (test code = LYNDSAY) [id number] [facility]).[id number] 18:35:00* Test Item Value Reference Range Interpretation Comme nts T-SPOT.TB (test code = 2243432) Negative SeeBelow Normal Value: Ne gativeA negative [...] CORRECTED FOR NEG CONTROL (test code = 5905973) 0 NEGATIVE CONTROL (test code = 4955545) Passed POSITIVE CONTROL (test code = 8886714) Passed LYNDSAY (test code = LYNDSAY) [id number] [facility](R).[id number] 18:35:00* Test Item Value Reference Range Interpretation Comme nts T-SPOT.TB (test code = 3836397) Negative SeeBelow Normal Value: Ne gativeA negative [...] CORRECTED FOR NEG CONTROL (test code = 4562517) 1 PANEL B SPOT COUNT CORRECTED FOR NEG CONTROL (test code = 3411778) 0 NEGATIVE CONTROL (test code = 1378535) Passed POSITIVE CONTROL (test code = 1196221) Passed LYNDSAY (test code = LYNDSAY) [id number] [facility](R).XJ2834-04-03 18:35:00* Test Item Value Reference Range Interpretation Comme nts T-SPOT.TB (test code = 0114344) Negative SeeBelow Normal Value: Ne gativeA negative [...] CORRECTED FOR NEG CONTROL (test code = 0837067) 1 PANEL B SPOT COUNT CORRECTED FOR NEG CONTROL (test code = 9333499) 0 NEGATIVE CONTROL (test code = 3695967) Passed POSITIVE CONTROL (test code = 3591562) Passed LYNDSAY (test code = LYNDSAY) [id number] [facility]).[id number] 18:35:00* Test Item Value Reference Range Interpretation [...] CORRECTED FOR NEG CONTROL (test code = 2886972) 0 NEGATIVE CONTROL (test code = 0400732) Passed POSITIVE CONTROL (test code = 7004465) Passed LYNDSAY (test code = LYNDSAY) [id number] [facility](R).[id number] 18:35:00* Test Item Value Reference Range Interpretation [...] CORRECTED FOR NEG CONTROL (test code = 4585495) 1 PANEL B SPOT COUNT CORRECTED FOR NEG CONTROL (test code = 0273685) 0 NEGATIVE CONTROL (test code = 3382709) Passed POSITIVE CONTROL (test code = 2383790) Passed LYNDSAY (test code = LYNDSAY) [id number] [facility] [id number] 13:41:18 Transesophageal Echocardiography Report (CHETAN) Demographics Patient Name YUE LAWS Date of Study 06/16/2023 [place] Gender Female Visit Number [id number] Race Room Number 1055 Number Date of 1970 Referring Physician Age 53 year(s) Montessori Paraprofessional Interpreting Physician Brian MDProcedure Type of Study CHETAN procedure:TRANSESOPHAGEAL ECHO (Routine)Indications:Endocarditis.Clinical HistoryCOPDCHFCVADiverticulitisHTNPADSeizureCardiac Cath 2021Height: 63 inches Weight: 86.64 kg (191 lbs) BSA: 1.9 m^2 BMI: 33.83 kg/m^2HR: 93 bpmBP: 107/64 mmHgTEE Performed By: the attending and the fellow Procedure Informed Consent CHETAN procedure notes Moderate sedation by performing MD using 10 mg IV versed and 100 mcg IV fentanyl. The patient was counseled and informed consent was obtained. Topical and intravenous anesthesia was administered. The esophagus was intubated without difficulty. The probe was passed and only the initial 4-fabrice mber view was obtained, the patient became agitated, the probe was withdrawn and the procedure aborted. No apparent complications.. Summary 1. The probe was passed and only the initial 4-chamber viewwas obtained, the patient became agitated, the probe [...] Tricuspid Valve Partially visualized. Pulmonic Valve Not visualized.[facility] pkdmob1485-22-90 09:55:41* Test Item Value Reference Range Interpretation Comme nts Result (test code = 6463-4) No [facility] xsjakf3895-26-75 09:55:41* Test Item Value Reference Range Interpretation Comme nts Result (test code = 6463-4) No [facility] bjtnec8244-92-20 09:55:41* Test Item Value Reference Range Interpretation Comme nts Result (test code = 6463-4) No [facility] ulyiai9024-07-39 09:55:41* Test Item Value Reference Range Interpretation Comme nts Result (test code = 6463-4) No [facility] izlzsw2193-93-81 09:55:41* Test Item Value Reference Range Interpretation Comme nts Result (test code = 6463-4) No [facility] isolated [facility] kcyrze3452-10-20 09:55:41* Test Item Value Reference Range Interpretation Comme nts Result (test code = 6463-4) No MRSA isolated [facility] [id number] 09:55:41* Test Item Value Reference Range Interpretation Comme nts CULTURE (BEAKER) (test code = 1095) No MRSA isolated CRYPTOCOCCAL [id number] 15:50:36* Test Item Value Reference Range Interpretation Comme nts CRYPTOCOCCAL ANTIGEN, SERUM (BEAKER) (test code = 1828) Negative Negative, Interference SPUTUM CULTURE + GRAM [id number] 10:30:11* Test Item Value Reference Range Interpretation Comme nts CULTURE (BEAKER) (test code = 1095) PSEUDOMONAS AERUGINOSA A [...] GRAM STAIN RESULT (BEAKER) (test code = 350082) 10-15 epithelial cells GRAM STAIN RESULT (BEAKER) (test code = 832750) 2+ gram positive cocci in chains and pairs GRAM STAIN RESULT (BEAKER) (test code = 792641) 1+ gram negative rods GRAM STAIN RESULT (BEAKER) (test code = 881384) 1+ yeast 2+ Normal respiratory rebel presentVANCOMYCIN LEVEL, [id number] 06:41:26* Test Item Value Reference Range Interpretation Comme nts VANCOMYCIN TROUGH (BEAKER) ( test code = 522) 17.0 ug/mL 10.0-20.0 Trail Maintenance Worker ID - ADMINECHO W CONTRAST & [id number] 13:44:03Transthoracic Echocardiography Report (TTE) Demographics Patient Name YUE LAWS Date of Study 06/14/2023 [place] Gender Female Visit Number [id number] Race Room Number 1055 Number Date of 1970 Referring Aydee Go MD Physician Age 53 year(s) Montessori Paraprofessional James Albarran RDCS Interpreting Mauricio Bonilla, Physician MDProcedure Type ofStudy TTE procedure:2DECHO W DOPPLER(CW/PW/COLOR) (Routine)Indications:Suspected infective endocarditis with positive cultures or newmurmur.Clinical HistoryCOPDCVADiverticulitisHTNPADSeizureCardiac Cath ontrast Medium: Definity. Amount - 2 mlHeight: 63 inches Weight: 86.64 kg (191 lbs) BSA: 1.9 m^2 BMI: 33.83 kg/m^2HR: 92 bpm BP: 99/66 mmHg Summary 1. LV endocardium is adequately visualized with IV ultrasound enhancing agent. 2. The left ventricle is chamber size (by vol index) is severelyenlarged (female - LVED vol >80ml/m2). Eccentric LV [...] LV FS: 22.9 % LV PW Systolic: 1.55cm LVEDV Downs's:165.3 ml LVEDVI: 87 ml/m^2 LVESV [...] Peak Velocity: 0.85 m/s Peak Gradient: 2.89 mmHgCHI [facility] Medical CenterHEMOGLOBIN A1C 2023-06-14 09:26:42* Test Item Value Reference Range Interpretation Comme [facility] HEMOGLOBIN A1C ELECTROPHORESIS (LATOYA) (test code = [...] 5.7- 6.4% indicates increased risk for diabetes (prediabetes)."Trail Maintenance Worker ID - ADMOperator ID - ADMECG 12 [id number] 09:06:12Ventricular Rate 97 BPMAtrial Rate 97 BPMP-R Interval 146 msQRS Duration 96 msQ-T Interval 378 msQTC Calculation(Dimas) 480 msP [place] 68 degreesR [place] 107 degreesT [place] 18 degrees Suspect arm leadreversal, interpretation assumes no reversalNormal sinus rhythmRightward axisNonspecific T wave abnormalityAbnormal ECGWhen compared with ECG of 30-MAR-2023 13:06,QRS axis Shifted rightConfirmed by Luis Lopez ([id number]) on 06/14/2023 9:06:07 [facility] [id number] 09:06:12Ventricular Rate 97 BPMAtrial Rate 97 BPMP-R Interval 146 msQRS Duration 96 msQ-T Interval 378 msQTC Calculation(Bazett) 480 msP [place] 68 degreesR [place] 107 degreesT [place] 18 degrees Suspect arm leadreversal, interpretation assumes no reversalNormal sinus rhythmRightward axisNonspecific T wave abno rmalityAbnormal ECGWhen compared with ECG of 30-MAR-2023 13:06,QRS axis Shifted rightConfirmed by Luis Lopez ([id number]) on 06/14/2023 9:06:07 [facility] HospitalBASIC METABOLIC [id number] 04:48:18* Test Item Value Reference Range Interpretation [...] GFR is not applicable for dialysis patients Trail Maintenance Worker ID - ADMINCBC (HEMOGRAM ONLY)2023-06-14 04:22:50* Test [...] 413) 0 /100 WBC 0-0 Strep pneumoniae [id number] 23:34:41* Test Item Value Reference Range Interpretation Comme nts Strep pneumoniae Antigen (test code = 26713-2) Presumptive negative for pneumococcal pneumonia - see [...] the test. Lab Interpretation (test code = 75814-2) [facility] tllducm7575-67-56 23:34:41* Test Item Value Reference Range Interpretation Comme nts Strep pneumoniae Antigen (test code = 84072-2) Presumptive negative for pneumococcal pneumonia - see [...] the test. Lab Interpretation (test code = 88880-5) [facility] dycrliy1812-04-02 23:34:41* Test Item Value Reference Range Interpretation Comme nts Strep pneumoniae Antigen (test code = 58556-9) Presumptive negative for pneumococcal pneumonia - see [...] the test. Lab Interpretation (test code = 60059-7) [facility] [id number] 23:34:41* Test Item Value Reference Range Interpretation Comme nts Strep pneumoniae Antigen (test code = 95060-2) Presumptive negative for pneumococcal pneumonia - see [...] the test. Lab Interpretation (test code = 01858-3) [facility] [id number] 23:34:41* Test Item Value Reference Range Interpretation Comme nts Strep pneumoniae Antigen (test code = 66808-7) Presumptive negative for pneumococcal pneumonia - see [...] the test. Lab Interpretation (test code = 93982-9) [facility] [id number] 23:34:41* Test Item Value Reference Range Interpretation Comme nts Strep pneumoniae Antigen (test code = 58025-4) Presumptive negative for pneumococcal pneumonia - see [...] the test. Lab Interpretation (test code = 63213-9) Normal [facility] HospitalTREP PNEUMONIAE [id number] 23:34:41* Test Item Value Reference Range Interpretation [...] detection limit of the test. Legionella antigen, [id number] 23:29:07* Test Item Value Reference Range Interpretation Comme [facility] Legionella Urine Antigen (test code = 38895-3) Negative - see comment Negative Negative for L. pneumophila serogroup 1 antigen, suggesting no recent or current infection with this serogroup. Legionellosis cannot be ruled out since other serogroups and species may cause disease. Lab Interpretation (test code = 17418-6) Normal [facility]ion[facility] antigen, [id number] 23:29:07* Test Item Value Reference Range Interpretation Comme nts Legionella Urine Antigen (test code = 35989-0) Negative - see comment Negative Negative for L. pneumophila serogroup 1 antigen, suggesting no recent or current infection with this serogroup. Legionellosis cannot be ruled out since other serogroups and species may cause disease. Lab Interpretation (test code = 57708-0) Normal [facility]ion[facility] antigen, [id number] 23:29:07* Test Item Value Reference Range Interpretation Comme nts Legionella Urine Antigen (test code = 52924-1) Negative - see comment Negative Negative for L. pneumophila serogroup 1 antigen, suggesting no recent or current infection with this serogroup. Legionellosis cannot be ruled out since other serogroups and species may cause disease. Lab Interpretation (test code = 73376-8) Normal [facility]ion[facility] antigen, [id number] 23:29:07* Test Item Value Reference Range Interpretation Comme nts Legionella Urine Antigen (test code = 73512-8) Negative - see comment Negative Negative for L. pneumophila serogroup 1 antigen, suggesting no recent or current infection with this serogroup. Legionellosis cannot be ruled out since other serogroups and species may cause disease. Lab Interpretation (test code = 29232-0) Normal [facility]ion[facility] antigen, [id number] 23:29:07* Test Item Value Reference Range Interpretation Comme nts Legionella Urine Antigen (test code = 27093-2) Negative - see comment Negative Negative for L. pneumophila serogroup 1 antigen, suggesting no recent or current infection with this serogroup. Legionellosis cannot be ruled out since other serogroups and species may cause disease. Lab Interpretation (test code = 46189-8) Normal [facility] antigen, [id number] 23:29:07* Test Item Value Reference Range Interpretation Comme nts Legionella Urine Antigen (test code = 30089-6) Negative - see comment Negative Negative for L. pneumophila serogroup 1 antigen, suggesting no recent or current infection with this serogroup. Legionellosis cannot be ruled out since other serogroups and species may cause disease. Lab Interpretation (test code = 20940-7) Normal [facility]fieldLEGIONELLA ANTIGEN, [id number] 23:29:07* Test Item Value Reference Range Interpretation Comme nts L. PNEUMOPHILA SEROGP 1 UR AG (BEAKER) (test code = 1156) Negative - see comment Negative Negative for L. pneumophila serogroup 1 antigen, suggesting no recent or current infection with this serogroup. Legionellosis cannot be ruled out since other serogroups and species may cause disease. Venous doppler arm, [id number] 20:05:32PV LAB - Upper Extremities Veins Demographics Patient Name YUE LAWS Date of Study 06/13/2023 [place] Age 53 Visit Number [id number] Gender Female Accession Number [id number] Date of 1970 Referring Cara Burgess Room Number 1055 Physician Montessori Paraprofessional Lisa Ruiz Interpreting John Solorio, Physician FellowProcedureType of Study: Veins: Upper ExtremitiesVeins, VENOUS DOPPLER ARM, LEFT.Indications for Study:Left arm pain .Patient Status:MICHAEL.Study Locat ion:Portable.Technical Quality:Adequate visualization. - Results were reported to:BETHLina@16:50pm .Risk FactorsHistory of Disease+ + + ---------+!Diagnosis [...] in cm/s ; Diameters are measured in [facility]HIV-1 ANTIGEN WITH HIV-1/2 [id number] 18:36:40* Test Item Value Reference Range Interpretation Comme nts HIV-1 ANTIGEN WITH HIV 1\\T\\2 ANTIBODY (2) (LATOYA) (test code = 2586) Nonreactive Nonreactive MR lumbar spine without & with IV lbszymqh9473-52-03 14:53:29MR LUMBAR SPINE WITH & WITHOUT IV [...] x 1.7x 1.7 cm. Dorsal paraspinal musculature N5mgwyjmlkafhulf. Postcontrast imaging demonstrates mild peripheralenhancement of the dorsal paraspinal fluid collection. Left adrenalgland 2.9 cm nodule.[facility] LUMBAR SPINE WITH & WITHOUT IV [id number] 14:53:29[facility] : 1970 Sex: FMR LUMBAR SPINE [...] 1.7 x 1.7 cm. Dorsal paraspinal musculature E4qjkpcdabprqegz. Postcontrast imaging demonstrates mild peripheralenhancement of the [...] Signed By: Ryan Buckley06/13/2023 14:55 CDTWorkstation Name: [id number] KINASE (CK)2023-06-13 11:54:02* Test Item Value Reference Range Interpretation Comme nts CREATINE KINASE TOTAL (BEAKE R) (test code = 380) 43 U/L 29-200 Trail Maintenance Worker ID - ADMINCOMPREHENSIVE METABOLIC [id number] 06:48:22* Test Item Value Reference Range Interpretation [...] GFR is not applicable for dialysis patients Trail Maintenance Worker ID - ADMINPROTHROMBIN TIME/IRL5439-89-31 06:40:01* Test Item Value Reference Range Interpretation [...] code = 2801) 1.70 % 0.00-1.00 H ZDVVZFKBP0521-22-42 05:26:09* Test Item Value Reference Range Interpretation Comme nts MAGNESIUM (BEAKER) (test cod e = 627) 2.0 mg/dL 1.6-2.6 Trail Maintenance Worker ID - HBVTIVFAMYOSSWP3271-21-42 05:26:09* Test Item Value Reference Range Interpretation Comme nts PHOSPHORUS (BEAKER) (test co de = 604) 3.5 mg/dL 2.3-4.7 Trail Maintenance Worker ID - ADMINBASIC METABOLIC [id number] 05:26:08* Test Item Value Reference Range Interpretation [...] GFR is not applicable for dialysis patients Trail Maintenance Worker ID - ADMINCBC W/PLT COUNT & AUTO EDLBHCAVAWPQ4699-76-30 05:11:15* Test Item Value Reference Range Interpretation [...] 0.70 % 0.00-1.00 XR spine lumbar 1 iywq9534-53-11 10:32:20XR SPINE LUMBAR 1 VIEW CLINICAL INDICATION: L3-4 LAMINECTOMY [facility] [id number] 10:32:20 [facility] : 1970 Sex: FXR SPINE LUMBAR 1 VIEWCLINICAL INDICATION: L3-4 LAMINECTOMYCOMPARISON: NoneIMPRESSION:A single lateral view of the lumbar spine is obtained intraoperatively.The posterior approach surgical instrument is seen at the L3-L4 level,inferior to the L3 spinous process. Results were communicated to , who concurred with the above findings. Electronically Signed By: Maxim Jean Baptisteip108/01/2022 10:34 CDTWo rkstation Name: [id number] SPINE LUMBAR 1 [id number] 10:29:18 [facility] : 1970 Sex: FCLINICAL HISTORY: L3-4 [...] Signed By: Maxim Ramos08/01/2022 10:31 CDTWorkstation Name: [id number] Screen, jzcwf0874-22-67 05:32:52* Test Item Value Reference Range Interpretation Comme nts Preg Test, Ur (test code = 2-1) Negative Negative Lab Interpretation (test cod e = 57517-0) Normal [facility] Screen, ipkah6961-97-56 05:32:52* Test Item Value Reference Range Interpretation Comme nts Preg Test, Ur (test code = 2111-) Negative Negative Lab Interpretation (test cod e = 26996-9) Normal [facility], [id number] 05:32:52* Test Item Value Reference Range Interpretation Comme nts Preg Test, Ur (test code = 2111-) Negative Negative Lab Interpretation (test cod e = 37957-2) Normal [facility] Screen, [id number] 05:32:52* Test Item Value Reference Range Interpretation Comme nts Preg Test, Ur (test code = 2111-) Negative Negative Lab Interpretation (test cod e = 69870-2) Normal [facility] Screen, lrklt5285-25-28 05:32:52* Test Item Value Reference Range Interpretation Comme nts Preg Test, Ur (test code = 2111-) Negative Negative Lab Interpretation (test cod e = 66077-6) Normal [facility] Screen, sdqyl2820-64-65 05:32:52* Test Item Value Reference Range Interpretation Comme nts Preg Test, Ur (test code = 2111-1) Negative Negative Lab Interpretation (test cod e = 27993-5) Normal [facility] Screen, [id number] 05:32:52* Test Item Value Reference Range Interpretation Comme nts Preg Test, Ur (test code = 2111-1) Negative Negative Lab Interpretation (test cod e = 23400-8) Normal [facility], kudle2682-46-26 05:32:52* Test Item Value Reference Range Interpretation Comme nts Preg Test, Ur (test code = 2-1) Negative Negative Lab Interpretation (test cod e = 41040-2) Normal [facility] Screen, szexm2593-76-78 05:32:52* Test Item Value Reference Range Interpretation Comme nts Preg Test, Ur (test code = 2111-1) Negative Negative Lab Interpretation (test cod e = 81917-6) Normal [facility]fieldPREGNANCY SCREEN, [id number] 05:32:52* Test Item Value Reference Range Interpretation Comme nts TEST URINE (BEAKER ) (test code = 583) Negative Negative BASIC METABOLIC [id number] 23:30:54* Test Item Value Reference Range Interpretation [...] GFR is not applicable for dialysis patients Trail Maintenance Worker ID - ADMINPT/LITA3726-86-41 23:15:33* Test Item Value Reference Range Interpretation [...] H CT neck soft tissue without IV kkulxsyy1463-64-31 13:45:22EXAM: CT NECK SOFT TISSUE WITHOUT IV [...] Postoperative changes from anterior cervical discectomy fusionat C3-A8Ytbxqrvh Lung Apices: NormalCHI Corona Regional Medical CenterCT NECK SOFT TISSUE WITHOUT IV [id number] 13:45:22 [facility] : 1970 Sex: FEXAM: CT NECK [...] Postoperative changes from anterior cervical discectomy fusionat C3-G4Uohuqztq Lung Apices: NormalIMPRESSION:Exam limited by lack of intravenous contrast.1. 1.8 x 2.9 x 1.3 cm ill-defined fluid collection in the leftanterolateral neck soft tissues, suggesting evolving postoperativehemorrhage. Superimposed infection is not ex cluded.2. Retropharyngeal fluid and air measuring up to 0.8 cm in thickness,favored to be present postoperative right frontal edema. Superimposedinfection is not excluded.3. Postoperative changes from ACDF at C3- U2Wdpjcwcqkicqrs Signed By: Maxim Jean Baptisteip107/31/2022 13:47 CDTWorkstation Name: [id number] METABOLIC [id number] 08:13:13* Test Item Value Reference Range Interpretation [...] GFR is not applicable for dialysis patients Trail Maintenance Worker ID - BVCBC W/PLT COUNT & AUTO [id number] 07:46:31* Test Item Value Reference Range Interpretation [...] 0.00-1.00 XR spine cervical 2 or 3 [id number] 20:24:23TECHNIQUE: Frontal and lateral views of the cervical spine. INDICATION: Postop Standing Films. COMPARISON: None.[facility] [place] CERVICAL 2 OR 3 [id number] 20:24:23[facility] : 1970 Sex: FTECHNIQUE: Frontal and lateral views of the cervical spine.INDICATION: Postop Standing Films.COMPAR ANNETTE: None.IMPRESSION:C7 is not well seen on lateral view. Status post C3-C4 ACDF with alignedhardware. Prior C4-C7 ACDF with interbody osseous fusion with intacthardware. No acute fracture or malalignment. Prevertebral soft swellingcompatible with recent postsurgical changes. There is a calcifiedgr anuloma at the left lung apex.Electronically Signed By: Zachariah Garcia05/28/2023 20:26 CDTWorkstation Name: [id number] fluoro non-specific up to 1 hour 2023-05-28 11:45:16This is a non-reportable study with no Radiologist dictation. Please refer to your PACS to review images, or Doc Flowsheets for documentation on studies without images.[facility] [place]fieldFL FLUORO NON-SPECIFIC UP TO 1 [id number] 11:45:16 [facility] : 1970 Sex: FThis is a non- reportable study with no Radiologist dictation. Please refer to your PACS to review images, or Doc Flowsheets for documentation on studies without images.FL FLUORO NON-SPECIFIC UP TO 1 [id number] 10:13:02 [facility] : 1970 Sex: FTECHNIQUE: 1 lateral fluoroscopic image of the cervical spine forlocalization.Fluoroscopic time: 3second(s).FINDINGS:The surgical pointer is at C3-C4.The findings were discussed with Dr. Garcia in theOR who concurred withthe findings.IMPRESSION:Intraoperative localization plain film as described abo ve.Electronically Signed By: Derik Reyez05/28/2023 10:15 CDTWorkstation Name: [id number], QUANTITATIVE, [id number] 08:21:03* Test Item Value Reference Range Interpretation Comme nts GONADOTROPIN, CHORIONIC (HCG ) QUANT (BEAKER) (test code = 649) < mIU/mL 0-10 Non- Females: <10 mIU/mL Females: Gestation Age Reference Range(mIU/mL) 0.2-1 Week 5-50 1-2 Weeks 50-500 2-3 Weeks 100-5,000 3-4 Weeks 500-10,000 4-5 Weeks 1,000-50,000 5-6 Weeks 10,000-100,000 6-8 Weeks 15,000- 200,000 2-3 Months 10,000-100,000 Trail Maintenance Worker ID - ADMINCULTURE, [id number] 09:28:30SPECIMEN NUMBER: [id number] CULTURE, URINE SPECIMEN NUMBER: [id number] SPECIMEN COMMENT: URINE SOURCE: URINE REPORT STATUS: FINAL FINAL REPORT: 05/15/2023 >100,000 CFU/ML UROGENITAL REBEL PRESENT NOCOMMON PATHOGENS UNLESS OTHERWISE INDICATED, ALL TESTING PERFORMED AT [email or web address] [address] [place] [address] INTRANET SPECIALIST: JANNY STEINER M.D. CLIA NUMBER [id number] [facility] [place]. [id number], [id number] 12:02:50SPECIMEN NUMBER: [id number] CULTURE, URINE SPECIMEN NUMBER: [id number] SOURCE: URINE REPORT STATUS: FINAL FINAL REPORT: 05/13/2023 NO SPECIMEN RECEIVED FOR TESTING. CHARGES DELETED.BASIC METABOLIC [id number] 04:48:43* Test Item Value Reference Range Interpretation Comme nts GLUCOSE (test code = 2217) 117 MG/DL 70-99 H BUN (test code = 2208) 20 MG/DL 6-20 CREATININE (test code = 2214) 0.83 MG/DL 0.60-1.30 eGFR (2020 CKD-EPI) (test co de = 00523) 85 ML/MIN/1.73 >60 SODIUM (test code = [...] 12.7 SECONDS 12.5-14.7 INR (test code = 53153) 0.9 SEE BELOW CURRENT RECOMMENDATIONS ARE FOR AN INR OF 2.0-3.0 FOR ALL PATIENTS ON VITAMIN K ANTAGONISTS, EXCEPT THOSE WITH PROSTHETIC HEART VALVES, FOR WHOM INR OF 2.5-3.5 IS RECOMMENDED. UNLESS OTHERWISE INDICATED, ALL TESTING PERFORMED AT [facility] [address] [place] [address] INTRANET SPECIALIST: JANNY STEINER M.D. CLIA NUMBER [id number] [facility] [place]. [id number] CBC W/AUTO DIFF WITH [id number] 01:54:17* Test Item Value Reference Range Interpretation [...] = 1065) 0.0 /100 WBC'S See_Comment [Automated CodeCombata ge] The system which generated this result [...] H ABS NUCLEATED RBCS (test code = 28716) 0.00 K/UL 0.00-0.11 ECG 12 [id number] 14:02:48Ventricular Rate 102 BPMAtrial Rate 102 BPMP-R Interval 146 msQRS Duration 90 msQ-T Interval 372 msQTC Calculation(Bazett) 484 msP [place] 11 degreesR [place] -53 degreesT [place] 29 degrees Sinus tachycardiaPossible Left atrial enlargementLeft axis deviationPoor R wave progression Cannot rule out Anterior infarct , age undetermined vs lead misplacementNonspecific T wave abnormalityProlonged QTAbnormal ECGNo previous ECGs availableConfirmed by David GARCIA BASANT ([id number]) on 04/06/2023 2:02:46 [facility] & [id number] 13:11:39Transthoracic Echocardiography Report (TTE) Demographics Patient Name YUE LAWS Date of Study 03/31/2023 [place] Gender Female Visit Number [id number] Race Room Number 2227 Number Date of 1970 Referring Physician Mariah Aldridge MD Age 53year(s) Montessori Paraprofessional Wilmer Francois Crop Adjuster Josefina Corbett, AISHWARYA Interpreting Physician Melody MDProcedure Type of Study TTE procedure:2DECHO W DOPPLER(CW/PW/COLOR) (Routine)Indications:Shortness of breath.Clinical HistoryCHF, ANXIETY, COPD, CVA, HTN, SEIZURESContrast Medium: Definity. Amount - 2 mlHeight: 62 inches Weight: 92.08 kg (203 lbs) BSA: 1.92 m^2 BMI: 37.13 kg/m^2HR: 75 bpm BP: 113/65 mmHg Summary The left ventricle chamber size (by vol index) is moderately enlarged (female- LVED vol -71-80ml/m2). All of the LV segments are hypokinetic . LVEF by Downs's method of disk assessment is moderately reduced (30-34%) . Grade 2 diastolic dysfunction (moderately increased LA pressure). Estimated peak systolic PA pressure is 30-35 mmHg (normal range) . Previous Study No priorstudies available for comparison. Signature FindingsTechnical Quality: Technically difficult exam. Left Ventricle LV endocardium is adequately visualized with IV ultrasound enhancing agent. The left ventricle chamber size (by vol index) is moderately enlarged (female - LVED vol -71-80ml/m2). No evidence of LV hypertrophy. All of the LV segments are hypokinetic . Global LVsystolic function moderately reduced . LVEF by Downs's [...] (Sinus of Valsalva diameter) is normal . PericardiumNo pericardial effusion is visualized. IVC/SVC/PA/PV/Pleural The estimated [...] m/s MV Peak A-Wave: 0.94 m/s E/A Ratio:1.32 Peak Gradient: 6.11 mmHg Deceleration Time: 162.8 [...] 1185.1 msec AV DVI: 0.78 LVOT Peak Veloc ity: 1.12 m/s Peak Gradient: 5.06 mmHg Mean Velocity: 0.74 m/s Mean Gradient: 2.54 mmHg LVOT Diameter: 2.19 cm LVOT VTI: 20.18 cm LVOT Area: 3.77 cm^2 LVOT SV:75.98 ml LVOT CO: 5.7 l/min LVOT CI: 2.97 l/min/m^2 Tricuspid Valve TR Velocity: 2.73 m/s TR Gradient: 29.86 mmHg Pulmonic Valve Peak Velocity: 0.74 m/s Peak Gradient: 2.22 mmHgCHI [facility] Medical CenterXR chest 1 view portable / [id number] 15:39:07TECHNIQUE: Frontal view of the chest. INDICATION: CHf. COMPARISON: None. FINDINGS: LINES/TUBES: None. HEART AND MEDIASTINUM: Cardiomediastinal contour is within normallimits. LUNGS: The lungs are well inflated and clear. No consolidation orpulmonary edema. PLEURA: No pneumothorax. No significant pleural effusion. SOFT TISSUES AND BONES: Cervical spinal fixation hardware is noted.[facility] [place] CHEST 1 VIEW PORTABLE / [id number] 15:39:07 [facility] : 1970 Sex: FTECHNIQUE: Frontal view of the chest.INDICATION: CHf.COMPARISON: None.FINDINGS:LINES/TUBES: None.HE ART AND MEDIASTINUM: Cardiomediastinal contour is within normallimits. LUNGS: The lungs are well inflated and clear. No consolidation orpulmonary edema.PLEURA: No pneumothorax. No significant pleuraleffusion.SOFT TISSUES AND BONES: Cervical spinal fixation hardware is noted.IMPRESSION:No acute card iopulmonary process.Electronically Signed By: Jose Carlos Lebron04/01/2023 15:41 CDTWorkstation Name: [id number] NATRIURETIC FACTOR (BNP)2023-04-01 14:15:07* Test Item Value Reference Range Interpretation Comme nts B-TYPE NATRIURETIC PEPTIDE ( BEAKER) (test code = 700) 192 pg/mL 0-[address] Maintenance Worker ID - ADMINMR spine cervical without IV [id number] 11:30:35MRI cervical spine without contrast CLINICAL HISTORY: [...] and paraspinal soft tissues are within normal limits.[facility] CERVICAL SPINE WITHOUT IV [id number] 11:30:35 [facility] : 1970 Sex: FMRI cervical spine [...] Signed By: Maxim Sultana03/31/2023 11:32 CDTWorkstation Name: [id number] METABOLIC [id number] 04:43:14* Test Item Value Reference Range Interpretation [...] GFR is not applicable for dialysis patients Trail Maintenance Worker GEOVANNA Yarelis [facility] (HEMOGRAM ONLY)2023-03-31 04:20:07* Test Item [...] 0 /100 WBC 0-0 Arterial doppler legs [id number] 17:44:07PV LAB - Lower Extremity Arterial Duplex Demographics Patient Name YUE LAWS Date of Study BROOKLYNN Age 53 Visit Number [id number] Gender Female Accession Number [id number] of 1970 Referring Mariah Aldridge, Room Number 2227 Physician Montessori Paraprofessional Yovana Akins Interpreting John Solorio, Physician FellowProcedureType of Study: ExtremitiesArteries: Lower Extremities Arterial Duplex, ARTERIAL DOPPLER LEGS, BILATERAL.Indications for Study:PVD.Patient Status:Routine.Study Location:Vascular Lab.Technical Quality:Adequate visualization.Risk FactorsHistory of Disease+ + + --+!Diagnosis !Date !Comments !+ + + -----+!History/Risk Factors: !03/30/2023!CHF, CVA, HTN. !+ +---- ------+ [...] + + + + + + !Prox SFA ! !146 [...] + + + + + + !Prox PLATFORM BEATER ! !32 ! !Biphasic ! !60.9 ! !Triphasic ! +- + + + + + + + + + !Mid PLATFORM BEATER ! !25.9 ! !Biphasic ! !59.7 ! !Triphasic ! + + + + + + + + + + !Dist PLATFORM BEATER ! !33.2 ! !Biphasic ! !37.4 ! [...] ! !Triphasic ! !60.5 ! !Triphasic ! +-------- + + + + + + + + + !Mid Peroneal! !27.9 ! !Biphasic ! !39.8 ! !Triphasic ! + + + + + + + + + + !Dist Peroneal ! !31.6 ! !Biphasic ! !23.6 ! !Biphasic ! +--- + + + + + + + + +[facility] CenterABI's Only(Ankle/Brachial Index)2023-03-30 17:13:47PV LAB - Lower Extremity Arterial Procedure Demographics Patient Name YUE LAWS Date of Study 03/30/2023 [place] Age 53 Visit Number [id number] Gender Female Accession Number [id number] Date of 1970 Referring Mariah Aldridge, Room Number 2227 Physician Montessori Paraprofessional Yovana Akins Interpreting John Solorio, Physician FellowProcedureType [...] in cm/s ; Diameters are measured in [facility] thoracic spine without IV [id number] 12:50:50 THORACIC SPINE WITHOUT IV CONTRAST INDICATION: Unlisted [...] abnormality. T10-11 moderate right neural foraminal stenosis mbkF48-45 moderate bilateral foraminal stenosis due to facet hypertrophyand ligamentum flavum redundancy. Thoracic vertebrae maintain normal height. Mild multilevel degenerativedisc changes. No evidence of acute osseous fracture or traumaticmalalignment. No paraspinal mass. Conus medullaris terminates at L1. Redundant cauda equina partiallyimaged and further reported on MRI lumbar spine.[facility] THORACIC SPINE WITHOUT IV [id number] 12:50:50 [facility] : 1970 Sex: FMR THORACIC SPINE [...] abnormality. T10-11 moderate right neural foraminal stenosis bwsC08-94 moderate bilateral foraminal stenosis due to facet [...] Signed By: Ryan Buckley03/30/2023 12:52 CDTWorkstation Name: [id number] spine lumbar without IV [id number] 12:33:57MR LUMBAR SPINE WITHOUT IV CONTRAST INDICATION: Unlisted Reason for ExamConcern for cord compression COMPARISON: None TECHNIQUE: Multiplanar, multisequence MR images of the lumbar spinewithout contrast. FINDINGS: For the purposes of this dictation, the 5 lowermost gfimdw-btfjhslyiixwi-wpft vertebral bodies are labeled L1-L5.Alignment of the [...] with mild to moderatebilateral neural foraminal stenosisCHI [facility]ona Regional Medical CenterMR LUMBAR SPINE WITHOUT IV [id number] 12:33:57 [facility] : 1970 Sex: FMR LUMBAR SPINE WITHOUT IV CONTRASTINDICATION: Unlisted Reason for ExamConcern for cord compressionCOMPARISON: NoneTECHNIQUE: Multiplanar, multisequence MR images of the lumbar spinewithout contrast. FINDINGS: For the purposes of this dictation, the 5 lowermost eynbmr-mslphbkomngur-nqsi vertebral bodies are labeled L1- L5.Alignment of the lumbar spine is within normal limits. Vertebral body height is maintained. Bone marrow edema is seen at the inferior L3 and superior L4 vertebralbodies and bilateral L4 pedicles, favored to be degenerative in nature.Suggestion of a synovial cyst at the hdznrV53-O29 level (series 301image eight).No spinal cord signal [...] flavum buckling versus synovial cyst at the pmzetE61-Z17 level (series 301image eight). MRI thoracic spine can beconsidered for further evaluation.7. Mild clumping of the cauda equina nerve roots, which is nonspecificbut may represent arachnoiditis. Postcontrast imaging can be consideredfor further evaluation.Electronically Signed By: Maxim Sultana03/30/2023 12:36 CDTWorkstation Name: [id number] [id number] 11:45:01* Test Item Value Reference Range Interpretation Comme nts HEMOGLOBIN A1C ELECTROPHORESIS (BEAKER) (test code = 3811) 5.7 % See_Comment [...] 5.7- 6.4% indicates increased risk for diabetes (prediabetes)."Trail Maintenance Worker ID - ADMEEG AWAKE AND [id number] 09:57:53Steph Martinez MD 03/30/2023 9:[address] [facility] EEG Type: Inpatient, outpatient, EMUDATE(s) OF EE03/30/23DATE OF REPORT: 03/30/23MRN: [id number] of : 1970EE-1454Start time: 08:36Stop time: 09:23ICD-10: R56.9 CPT Code: 67546 (awake and asleep)HISTORY: 53 y/o female with [...] EEG recordings. Steph Elias MD, MPHNeurophysiology/Epilepsy AttendingCH[facility] EEG AWAKE AND [id number] 09:57:53Steph Martinez MD 03/30/2023 9:[address] [facility] EEG Type: Inpatient, outpatient, EMUDATE(s) OF EE03/30/23DATE OF REPORT: 03/30/23MRN: [id number] of : 1970EE-1454Start time: 08:36Stop time: 09:23ICD-10: R56.9 CPT Code: 74059 (awake and asleep)HISTORY: 53 y/o female with [...] EEG recordings. Steph Elias MD, MPHNeurophysiology/Epilepsy AttendingCH[facility] EEG AWAKE AND [id number] 09:57:53Steph Martinez MD 03/30/2023 9:[address] EEG Type: Inpatient, outpatient, EMUDATE(s) OF EE03/30/23DATE OF REPORT: 03/30/23MRN: [id number] of : 1970EE-1454Start time: 08:36Stop time: 09:23ICD-10: R56.9 CPT Code: 53149 (awake and asleep)HISTORY: 53 y/o female with [...] additional EEG recordings. Steph Elias MD, MPHNeurophysiology/Epilepsy AttendingAd[facility] [place] VALPROIC ACID LEVEL, [id number] 09:42:31* Test Item Value Reference Range Interpretation Comme nts VALPROIC ACID TOTAL (BEAKER) (test code = 924) 76 ug/mL 50-100 Therapeutic range for some clinical conditions may be >100 ug/mLUrinalysis w/Microscopic + Reflex to [id number] 08:43:51* Test Item Value Reference Range Interpretation Comme nts Color, UA (test code = 5778-6) Yellow Clarity, UA (test code = 5767-9) Clear Specific Randolph, UA (test code = 5811-5) 1.033 1.001-1.035 pH, UA (test code = 5803-2) 6.0 5.0-8.0 Protein, UA (test code = 17422-7) 30 mg/dL Negative A Glucose, UA (test code = 365) Negative Negative Ketones, UA (test code = 2514-8) Negative Negative Bilirubin, UA (test code = 67545-7) Negative Negative Blood, UA (test code = 80985-2) Small Negative A Nitrite, UA (test code = 5802-4) Negative Negative Leukocytes, UA (test code = 5799-2) Negative Negative Urobilinogen, UA (test code = 39076-5) 0.2 0.2-1.0 RBC, UA (test code = 41593-7) 51 See_Comment [Automated message] The system which [...] Occasional Squam Epithel, UA (test code = 22570-3) See_Comment [Automated message] The system which generated this result transmitted reference range: /HPF. The reference range was not used to interpret this result as normal/abnormal. Specimen Source (test code = 2795) LYNDSAY (test code = LYNDSAY) Trail Maintenance Worker ID - [auto]Trail Maintenance Worker ID - tech Lab Interpretation (test code = 77503-9) Abnormal [facility]field[facility]inalysis w/Microscopic + Reflex to Culture 2023-03-30 08:43:51* Test Item Value Reference Range Interpretation Comme nts Color, UA (test code = 5778-6) Yellow Clarity, UA (test code = 5767-9) Clear Specific Randolph, UA (test code = 5811-5) 1.033 1.001-1.035 pH, UA (test code = 5803-2) 6.0 5.0-8.0 Protein, UA (test code = 01085-4) 30 mg/dL Negative A Glucose, UA (test code = 365) Negative Negative Ketones, UA (test code = 2514-8) Negative Negative Bilirubin, UA (test code = 80578-8) Negative Negative Blood, UA (test code = 61817-9) Small Negative A Nitrite, UA (test code = 5802-4) Negative Negative Leukocytes, UA (test code = 5799-2) Negative Negative Urobilinogen, UA (test code = 96967-6) 0.2 0.2-1.0 RBC, UA (test code = 89900-3) 51 See_Comment [Automated message] The system which [...] Occasional Squam Epithel, UA (test code = 49213-2) See_Comment [Automated message] The system which generated this result transmitted reference range: /HPF. The reference range was not used to interpret this result as normal/abnormal. Specimen Source (test code = 2795) LYNDSAY (test code = LYNDSAY) Trail Maintenance Worker ID - [auto]Trail Maintenance Worker ID - tech Lab Interpretation (test code = 23801-0) Abnormal [facility]inalysis w/Microscopic + Reflex to Culture 2023-03-30 08:43:51* Test Item Value Reference Range Interpretation Comme nts Color, UA (test code = 5778-6) Yellow Clarity, UA (test code = 5767-9) Clear Specific Randolph, UA (test code = 5811-5) 1.033 1.001-1.035 pH, UA (test code = 5803-2) 6.0 5.0-8.0 Protein, UA (test code = 07728-6) 30 mg/dL Negative A Glucose, UA (test code = 365) Negative Negative Ketones, UA (test code = 2514-8) Negative Negative Bilirubin, UA (test code = 97600-5) Negative Negative Blood, UA (test code = 21792-1) Small Negative A Nitrite, UA (test code = 5802-4) Negative Negative Leukocytes, UA (test code = 5799-2) Negative Negative Urobilinogen, UA (test code = 11635-7) 0.2 0.2-1.0 RBC, UA (test code = 15570-6) 51 See_Comment [Automated message] The system which [...] Occasional Squam Epithel, UA (test code = 33417-9) See_Comment [Automated message] The system which generated this result transmitted reference range: /HPF. The reference range was not used to interpret this result as normal/abnormal. Specimen Source (test code = 2795) LYNDSAY (test code = LYNDSAY) Trail Maintenance Worker ID - [auto]Trail Maintenance Worker ID - tech Lab Interpretation (test code = 48806-5) Abnormal [facility] CenterUrinalysis w/Microscopic + Reflex to Culture 2023-03-30 08:43:51* Test Item Value Reference Range Interpretation Comme nts Color, UA (test code = 5778-6) Yellow Clarity, UA (test code = 5767-9) Clear Specific Randolph, UA (test code = 5811-5) 1.033 1.001-1.035 pH, UA (test code = 5803-2) 6.0 5.0-8.0 Protein, UA (test code = 07992-6) 30 mg/dL Negative A Glucose, UA (test code = 365) Negative Negative Ketones, UA (test code = 2514-8) Negative Negative Bilirubin, UA (test code = 35361-3) Negative Negative Blood, UA (test code = 23049-4) Small Negative A Nitrite, UA (test code = 5802-4) Negative Negative Leukocytes, UA (test code = 5799-2) Negative Negative Urobilinogen, UA (test code = 52451-3) 0.2 0.2-1.0 RBC, UA (test code = 74108-4) 51 See_Comment [Automated message] The system which [...] Occasional Squam Epithel, UA (test code = 52171-2) See_Comment [Automated message] The system which generated this result transmitted reference range: /HPF. The reference range was not used to interpret this result as normal/abnormal. Specimen Source (test code = 2795) LYNDSAY (test code = LYNDSAY) Trail Maintenance Worker ID - [auto]Trail Maintenance Worker ID - tech Lab Interpretation (test code = 35605-0) Abnormal [facility] CenterUrinalysis w/Microscopic + Reflex to Culture 2023-03-30 08:43:51* Test Item Value Reference Range Interpretation Comme nts Color, UA (test code = 5778-6) Yellow Clarity, UA (test code = 5767-9) Clear Specific Randolph, UA (test code = 5811-5) 1.033 1.001-1.035 pH, UA (test code = 5803-2) 6.0 5.0-8.0 Protein, UA (test code = 08679-8) 30 mg/dL Negative A Glucose, UA (test code = 365) Negative Negative Ketones, UA (test code = 2514-8) Negative Negative Bilirubin, UA (test code = 80739-9) Negative Negative Blood, UA (test code = 81901-0) Small Negative A Nitrite, UA (test code = 5802-4) Negative Negative Leukocytes, UA (test code = 5799-2) Negative Negative Urobilinogen, UA (test code = 25772-3) 0.2 0.2-1.0 RBC, UA (test code = 16462-5) 51 See_Comment [Automated message] The system which [...] Occasional Squam Epithel, UA (test code = 02372-6) See_Comment [Automated message] The system which generated this result transmitted reference range: /HPF. The reference range was not used to interpret this result as normal/abnormal. Specimen Source (test code = 2795) LYNDSAY (test code = LYNDSAY) Trail Maintenance Worker ID - [auto]Trail Maintenance Worker ID - tech Lab Interpretation (test code = 85139-9) Abnormal [facility]inal[facility] w/Microscopic + Reflex to Culture 2023-03-30 08:43:51* Test Item Value Reference Range Interpretation Comme nts Color, UA (test code = 5778-6) Yellow Clarity, UA (test code = 5767-9) Clear Specific Randolph, UA (test code = 5811-5) 1.033 1.001-1.035 pH, UA (test code = 5803-2) 6.0 5.0-8.0 Protein, UA (test code = 71207-8) 30 mg/dL Negative A Glucose, UA (test code = 365) Negative Negative Ketones, UA (test code = 2514-8) Negative Negative Bilirubin, UA (test code = 94393-3) Negative Negative Blood, UA (test code = 71184-3) Small Negative A Nitrite, UA (test code = 5802-4) Negative Negative Leukocytes, UA (test code = 5799-2) Negative Negative Urobilinogen, UA (test code = 07767-7) 0.2 0.2-1.0 RBC, UA (test code = 54984-9) 51 See_Comment [Automated message] The system which [...] Occasional Squam Epithel, UA (test code = 36261-9) See_Comment [Automated message] The system which generated this result transmitted reference range: /HPF. The reference range was not used to interpret this result as normal/abnormal. Specimen Source (test code = 2795) LYNDSAY (test code = LYNDSAY) Trail Maintenance Worker ID - [auto]Trail Maintenance Worker ID - tech Lab Interpretation (test code = 29411-8) Abnormal [facility] CenterUrinalysis w/Microscopic + Reflex to Culture 2023-03-30 08:43:51* Test Item Value Reference Range Interpretation Comme nts Color, UA (test code = 5778-6) Yellow Clarity, UA (test code = 5767-9) Clear Specific Randolph, UA (test code = 5811-5) 1.033 1.001-1.035 pH, UA (test code = 5803-2) 6.0 5.0-8.0 Protein, UA (test code = 92237-7) 30 mg/dL Negative A Glucose, UA (test code = 365) Negative Negative Ketones, UA (test code = 2514-8) Negative Negative Bilirubin, UA (test code = 95933-8) Negative Negative Blood, UA (test code = 51967-2) Small Negative A Nitrite, UA (test code = 5802-4) Negative Negative Leukocytes, UA (test code = 5799-2) Negative Negative Urobilinogen, UA (test code = 29805-1) 0.2 0.2-1.0 RBC, UA (test code = 04611-5) 51 See_Comment [Automated message] The system which [...] Occasional Squam Epithel, UA (test code = 57272-5) See_Comment [Automated message] The system which generated this result transmitted reference range: /HPF. The reference range was not used to interpret this result as normal/abnormal. Specimen Source (test code = 2795) LYNDSAY (test code = LYNDSAY) Trail Maintenance Worker ID - [auto]Trail Maintenance Worker ID - tech Lab Interpretation (test code = 11090-3) [facility] Reflex to Culture 2023-03-30 08:43:51* Test Item Value Reference Range Interpretation Comme nts Color, UA (test code = 5778-6) Yellow Clarity, UA (test code = 5767-9) Clear Specific Randolph, UA (test code = 5811-5) 1.033 1.001-1.035 pH, UA (test code = 5803-2) 6.0 5.0-8.0 Protein, UA (test code = 21674-5) 30 mg/dL Negative A Glucose, UA (test code = 365) Negative Negative Ketones, UA (test code = 2514-8) Negative Negative Bilirubin, UA (test code = 38286-0) Negative Negative Blood, UA (test code = 63717-7) Small Negative A Nitrite, UA (test code = 5802-4) Negative Negative Leukocytes, UA (test code = 5799-2) Negative Negative Urobilinogen, UA (test code = 72470-3) 0.2 0.2-1.0 RBC, UA (test code = 45095-5) 51 See_Comment [Automated message] The system which [...] Occasional Squam Epithel, UA (test code = 92593-5) See_Comment [Automated message] The system which generated this result transmitted reference range: /HPF. The reference range was not used to interpret this result as normal/abnormal. Specimen Source (test code = 2795) LYNDSAY (test code = LYNDSAY) Trail Maintenance Worker ID - [auto]Trail Maintenance Worker ID - tech Lab Interpretation (test code = 71303-9) [facility]normal [facility] [place] [place]Microscopic + Reflex to Culture 2023-03-30 08:43:51* Test Item Value Reference Range Interpretation Comme nts Color, UA (test code = 5778-6) Yellow Clarity, UA (test code = 5767-9) Clear Specific Randolph, UA (test code = 5811-5) 1.033 1.001-1.035 pH, UA (test code = 5803-2) 6.0 5.0-8.0 Protein, UA (test code = 37670-7) 30 mg/dL Negative A Glucose, UA (test code = 365) Negative Negative Ketones, UA (test code = 2514-8) Negative Negative Bilirubin, UA (test code = 62791-2) Negative Negative Blood, UA (test code = 19905-8) Small Negative A Nitrite, UA (test code = 5802-4) Negative Negative Leukocytes, UA (test code = 5799-2) Negative Negative Urobilinogen, UA (test code = 60821-5) 0.2 0.2-1.0 RBC, UA (test code = 47508-3) 51 See_Comment [Automated message] The system which [...] Occasional Squam Epithel, UA (test code = 23214-4) See_Comment [Automated message] The system which generated this result transmitted reference range: /HPF. The reference range was not used to interpret this result as normal/abnormal. Specimen Source (test code = 2795) LYNDSAY (test code = LYNDSAY) Trail Maintenance Worker ID - [auto]Trail Maintenance Worker ID - tech Lab Interpretation (test code = 12255-6) [facility]normal [facility] [place] + Reflex to Culture 2023-03-30 08:43:51* Test Item Value Reference Range Interpretation Comme nts Color, UA (test code = 5778-6) Yellow Clarity, UA (test code = 5767-9) Clear Specific Randolph, UA (test code = 5811-5) 1.033 1.001-1.035 pH, UA (test code = 5803-2) 6.0 5.0-8.0 Protein, UA (test code = 05651-0) 30 mg/dL Negative A Glucose, UA (test code = 365) Negative Negative Ketones, UA (test code = 2514-8) Negative Negative Bilirubin, UA (test code = 12557-5) Negative Negative Blood, UA (test code = 06650-6) Small Negative A Nitrite, UA (test code = 5802-4) Negative Negative Leukocytes, UA (test code = 5799-2) Negative Negative Urobilinogen, UA (test code = 93991-3) 0.2 0.2-1.0 RBC, UA (test code = 67561-4) 51 See_Comment [Automated message] The system which [...] Occasional Squam Epithel, UA (test code = 19830-3) See_Comment [Automated message] The system which generated this result transmitted reference range: /HPF. The reference range was not used to interpret this result as normal/abnormal. Specimen Source (test code = 2795) LYNDSAY (test code = LYNDSAY) Trail Maintenance Worker ID - [auto]Trail Maintenance Worker ID - tech Lab Interpretation (test code = 71211-2) [facility]23-[facility]-30 08:43:51* Test Item Value Reference Range Interpretation Comme nts Color, UA (test code = 5778-6) Yellow Clarity, UA (test code = 5767-9) Clear Specific Randolph, UA (test code = 5811-5) 1.033 1.001-1.035 pH, UA (test code = 5803-2) 6.0 5.0-8.0 Protein, UA (test code = 86544-5) 30 mg/dL Negative A Glucose, UA (test code = 365) Negative Negative Ketones, UA (test code = 2514-8) Negative Negative Bilirubin, UA (test code = 05934-5) Negative Negative Blood, UA (test code = 19235-2) Small Negative A Nitrite, UA (test code = 5802-4) Negative Negative Leukocytes, UA (test code = 5799-2) Negative Negative Urobilinogen, UA (test code = 47575-0) 0.2 0.2-1.0 RBC, UA (test code = 92052-0) 51 See_Comment [Automated message] The system which [...] Occasional Squam Epithel, UA (test code = 21539-2) See_Comment [Automated message] The system which generated this result transmitted reference range: /HPF. The reference range was not used to interpret this result as normal/abnormal. Specimen Source (test code = 2795) LYNDSAY (test code = LYNDSAY) Trail Maintenance Worker ID - [auto]Trail Maintenance Worker ID - tech Lab Interpretation (test code = 98055-7) Abnormal [facility] [place]opic + Reflex to Culture 2023-03-30 08:43:51* Test Item Value Reference Range Interpretation Comme nts Color, UA (test code = 5778-6) Yellow Clarity, UA (test code = 5767-9) Clear Specific Randolph, UA (test code = 5811-5) 1.033 1.001-1.035 pH, UA (test code = 5803-2) 6.0 5.0-8.0 Protein, UA (test code = 55556-0) 30 mg/dL Negative A Glucose, UA (test code = 365) Negative Negative Ketones, UA (test code = 2514-8) Negative Negative Bilirubin, UA (test code = 71561-9) Negative Negative Blood, UA (test code = 91317-0) Small Negative A Nitrite, UA (test code = 5802-4) Negative Negative Leukocytes, UA (test code = 5799-2) Negative Negative Urobilinogen, UA (test code = 57908-7) 0.2 0.2-1.0 RBC, UA (test code = 81537-0) 51 See_Comment [Automated message] The system which [...] Occasional Squam Epithel, UA (test code = 83313-9) See_Comment [Automated message] The system which generated this result transmitted reference range: /HPF. The reference range was not used to interpret this result as normal/abnormal. Specimen Source (test code = 2795) LYNDSAY (test code = LYNDSAY) Trail Maintenance Worker ID - [auto]Trail Maintenance Worker ID - tech Lab Interpretation (test code = 26046-2) [facility] Reflex [facility] Culture 2023-03-30 08:43:51* Test Item Value Reference Range Interpretation Comme nts Color, UA (test code = 5778-6) Yellow Clarity, UA (test code = 5767-9) Clear Specific Randolph, UA (test code = 5811-5) 1.033 1.001-1.035 pH, UA (test code = 5803-2) 6.0 5.0-8.0 Protein, UA (test code = 41249-3) 30 mg/dL Negative A Glucose, UA (test code = 365) Negative Negative Ketones, UA (test code = 2514-8) Negative Negative Bilirubin, UA (test code = 06494-0) Negative Negative Blood, UA (test code = 51441-2) Small Negative A Nitrite, UA (test code = 5802-4) Negative Negative Leukocytes, UA (test code = 5799-2) Negative Negative Urobilinogen, UA (test code = 90270-3) 0.2 0.2-1.0 RBC, UA (test code = 76272-9) 51 See_Comment [Automated message] The system which [...] Occasional Squam Epithel, UA (test code = 74050-1) See_Comment [Automated message] The system which generated this result transmitted reference range: /HPF. The reference range was not used to interpret this result as normal/abnormal. Specimen Source (test code = 2795) LYNDSAY (test code = LYNDSAY) Trail Maintenance Worker ID - [auto]Trail Maintenance Worker ID - tech Lab Interpretation (test code = 05480-4) [facility] Reflex [facility] Culture 2023-03-30 08:43:51* Test Item Value Reference Range Interpretation Comme nts Color, UA (test code = 5778-6) Yellow Clarity, UA (test code = 5767-9) Clear Specific Randolph, UA (test code = 5811-5) 1.033 1.001-1.035 pH, UA (test code = 5803-2) 6.0 5.0-8.0 Protein, UA (test code = 68159-6) 30 mg/dL Negative A Glucose, UA (test code = 365) Negative Negative Ketones, UA (test code = 2514-8) Negative Negative Bilirubin, UA (test code = 93397-7) Negative Negative Blood, UA (test code = 00787-3) Small Negative A Nitrite, UA (test code = 5802-4) Negative Negative Leukocytes, UA (test code = 5799-2) Negative Negative Urobilinogen, UA (test code = 52670-1) 0.2 0.2-1.0 RBC, UA (test code = 32863-1) 51 See_Comment [Automated message] The system which [...] Occasional Squam Epithel, UA (test code = 76603-8) See_Comment [Automated message] The system which generated this result transmitted reference range: /HPF. The reference range was not used to interpret this result as normal/abnormal. Specimen Source (test code = 2795) LYNDSAY (test code = LYNDSAY) Trail Maintenance Worker ID - [auto]Trail Maintenance Worker ID - tech Lab Interpretation (test code = 94728-8) [facility] Reflex [facility] Culture 2023-03-30 08:43:51* Test Item Value Reference Range Interpretation Comme nts Color, UA (test code = 5778-6) Yellow Clarity, UA (test code = 5767-9) Clear Specific Randolph, UA (test code = 5811-5) 1.033 1.001-1.035 pH, UA (test code = 5803-2) 6.0 5.0-8.0 Protein, UA (test code = 11681-1) 30 mg/dL Negative A Glucose, UA (test code = 365) Negative Negative Ketones, UA (test code = 2514-8) Negative Negative Bilirubin, UA (test code = 31386-3) Negative Negative Blood, UA (test code = 89117-1) Small Negative A Nitrite, UA (test code = 5802-4) Negative Negative Leukocytes, UA (test code = 5799-2) Negative Negative Urobilinogen, UA (test code = 65358-0) 0.2 0.2-1.0 RBC, UA (test code = 08091-3) 51 See_Comment [Automated message] The system which [...] Occasional Squam Epithel, UA (test code = 40295-3) See_Comment [Automated message] The system which generated this result transmitted reference range: /HPF. The reference range was not used to interpret this result as normal/abnormal. Specimen Source (test code = 2795) LYNDSAY (test code = LYNDSAY) Trail Maintenance Worker ID - [auto]Trail Maintenance Worker ID - tech Lab Interpretation (test code = 92242-5) [facility]normal [facility] + Reflex to Culture 2023-03-30 08:43:51* Test Item Value Reference Range Interpretation Comme nts Color, UA (test code = 5778-6) Yellow Clarity, UA (test code = 5767-9) Clear Specific Randolph, UA (test code = 5811-5) 1.033 1.001-1.035 pH, UA (test code = 5803-2) 6.0 5.0-8.0 Protein, UA (test code = 73632-6) 30 mg/dL Negative A Glucose, UA (test code = 365) Negative Negative Ketones, UA (test code = 2514-8) Negative Negative Bilirubin, UA (test code = 65715-0) Negative Negative Blood, UA (test code = 64473-8) Small Negative A Nitrite, UA (test code = 5802-4) Negative Negative Leukocytes, UA (test code = 5799-2) Negative Negative Urobilinogen, UA (test code = 40152-7) 0.2 0.2-1.0 RBC, UA (test code = 40349-1) 51 See_Comment [Automated message] The system which [...] Occasional Squam Epithel, UA (test code = 76928-6) See_Comment [Automated message] The system which generated this result transmitted reference range: /HPF. The reference range was not used to interpret this result as normal/abnormal. Specimen Source (test code = 2795) LYNDSAY (test code = LYNDSAY) Trail Maintenance Worker ID - [auto]Trail Maintenance Worker ID - tech Lab Interpretation (test code = 15072-0) [facility]normal [facility]opic + Reflex to Culture 2023-03-30 08:43:51* Test Item Value Reference Range Interpretation Comme nts Color, UA (test code = 5778-6) Yellow Clarity, UA (test code = 5767-9) Clear Specific Randolph, UA (test code = 5811-5) 1.033 1.001-1.035 pH, UA (test code = 5803-2) 6.0 5.0-8.0 Protein, UA (test code = 86567-1) 30 mg/dL Negative A Glucose, UA (test code = 365) Negative Negative Ketones, UA (test code = 2514-8) Negative Negative Bilirubin, UA (test code = 98727-2) Negative Negative Blood, UA (test code = 97632-0) Small Negative A Nitrite, UA (test code = 5802-4) Negative Negative Leukocytes, UA (test code = 5799-2) Negative Negative Urobilinogen, UA (test code = 81297-4) 0.2 0.2-1.0 RBC, UA (test code = 46714-8) 51 See_Comment [Automated message] The system which [...] Occasional Squam Epithel, UA (test code = 55779-2) See_Comment [Automated message] The system which generated this result transmitted reference range: /HPF. The reference range was not used to interpret this result as normal/abnormal. Specimen Source (test code = 2795) LYNDSAY (test code = LYNDSAY) Trail Maintenance Worker ID - [auto]Trail Maintenance Worker ID - tech Lab Interpretation (test code = 37692-9) [facility] Reflex [facility] Culture 2023-03-30 08:43:51* Test Item Value Reference Range Interpretation Comme nts Color, UA (test code = 5778-6) Yellow Clarity, UA (test code = 5767-9) Clear Specific Randolph, UA (test code = 5811-5) 1.033 1.001-1.035 pH, UA (test code = 5803-2) 6.0 5.0-8.0 Protein, UA (test code = 44922-3) 30 mg/dL Negative A Glucose, UA (test code = 365) Negative Negative Ketones, UA (test code = 2514-8) Negative Negative Bilirubin, UA (test code = 54083-8) Negative Negative Blood, UA (test code = 43271-4) Small Negative A Nitrite, UA (test code = 5802-4) Negative Negative Leukocytes, UA (test code = 5799-2) Negative Negative Urobilinogen, UA (test code = 60567-9) 0.2 0.2-1.0 RBC, UA (test code = 43011-6) 51 See_Comment [Automated message] The system which [...] Occasional Squam Epithel, UA (test code = 55634-0) See_Comment [Automated message] The system which generated this result transmitted reference range: /HPF. The reference range was not used to interpret this result as normal/abnormal. Specimen Source (test code = 2795) LYNDSAY (test code = LYNDSAY) Trail Maintenance Worker ID - [auto]Trail Maintenance Worker ID - tech Lab Interpretation (test code = 17880-4) [facility] Reflex [facility] Culture 2023-03-30 08:43:51* Test Item Value Reference Range Interpretation Comme nts Color, UA (test code = 5778-6) Yellow Clarity, UA (test code = 5767-9) Clear Specific Randolph, UA (test code = 5811-5) 1.033 1.001-1.035 pH, UA (test code = 5803-2) 6.0 5.0-8.0 Protein, UA (test code = 08265-4) 30 mg/dL Negative A Glucose, UA (test code = 365) Negative Negative Ketones, UA (test code = 2514-8) Negative Negative Bilirubin, UA (test code = 60735-5) Negative Negative Blood, UA (test code = 34731-2) Small Negative A Nitrite, UA (test code = 5802-4) Negative Negative Leukocytes, UA (test code = 5799-2) Negative Negative Urobilinogen, UA (test code = 85265-8) 0.2 0.2-1.0 RBC, UA (test code = 21558-8) 51 See_Comment [Automated message] The system which [...] Occasional Squam Epithel, UA (test code = 28694-7) See_Comment [Automated message] The system which generated this result transmitted reference range: /HPF. The reference range was not used to interpret this result as normal/abnormal. Specimen Source (test code = 2795) LYNDSAY (test code = LYNDSAY) Trail Maintenance Worker ID - [auto]Trail Maintenance Worker ID - tech Lab Interpretation (test code = 04814-4) [facility]normal [facility]FLEX UR[facility] [id number] 08:43:51 * Test Item Value Reference Range [...] < /HPF SOURCE(BEAKER) (test code = 2795) Trail Maintenance Worker ID - [auto]Trail Maintenance Worker ID - techCOMPREHENSIVE METABOLIC [id number] 04:37:29* Test Item Value Reference Range Interpretation [...] GFR is not applicable for dialysis patients Trail Maintenance Worker ID - MATT BPT/[id number] 04:30:17* Test Item Value Reference Range Interpretation Comme nts PROTIME (BEAKER) (test code = 759) 13.8 seconds 11.9-14.2 INR (BEAKER) (test code = 370) 1.13 See_Comment [Automated CodeCombata ViperMed] The system which generated this result transmitted [...] code = 413) 0 /100 WBC 0-0 ITP-[id number] 00:00:00Ordered by an unspecified provider.[facility]KWTHQYJ4015-20-49 00:00:00Ordered by an unspecified provider. [facility] [place]-JZFMDCG1707-02-28 00:00:00Ordered by an unspecified provider.[facility]UM2023-05-25 17:14:06* Test Item Value Reference Range Interpretation Comme nts MAGNESIUM (test code = 3806390388) 1.9 mg/dL 1.7-2.4 Lab Interpretation (test cod e = 69495-7) Normal [facility]. METABOLIC PANEL (10822)2022-12-11 15:16:25* Test Item Value Reference Range Interpretation Comme nts NA (test code = 7998354295) 139 mmol/L 135-145 K (test code = 0561720578) 3.5 mmol/L 3.5-5.0 CL (test code = 4933140706) 107 mmol/L 98-108 CO2 TOTAL (test code = 2384880433) 24 mmol/L 23-31 AGAP (test code = 6925252033) 8 2-16 BUN (test code = 8209534589) 9 mg/dL 7-23 GLUCOSE (test code = 7290980071) 129 mg/dL 70-110 H CREATININE (test code = 1208373609) 0.68 mg/dL 0.50-1.04 TOTAL BILI (test code = 0449233525) 0.5 mg/dL 0.1-1.1 CALCIUM (test code = 5277956329) 8.9 mg/dL 8.6-10.6 T PROTEIN (test code = 9774275094) 6.3 g/dL 6.3-8.2 ALBUMIN (test code = 7603780493) 3.8 g/dL 3.5-5.0 ALK PHOS (test code = 0817869767) 87 U/L 34-122 ALTv (test code = 1742-6) 24 U/L 5-35 AST(SGOT) (test code = 0668351432) 21 U/L 13-40 eGFR (test code = 4066818653) 91.6 mL/min/1.73m2 LYNDSAY (test code = LYNDSAY) [...] imaging tests). Lab Interpretation (test code = 88890-5) [id number]:10:45* Test Item Value Reference Range Interpretation Comme nts TROPONIN I (test code = 4930411852) 0.015 ng/mL <=0.034 LYNDSAY (test code = [...] of biotin. Lab Interpretation (test code = 25251-8) [facility] [id number]-[id number] 15:07:48* Test Item Value Reference Range Interpretation Comme nts NT-proBNP (test code = 6280654806) 1460 pg/mL <=125 H LYNDSAY (test code = LYNDSAY) Biotin has been reported to cause a negative bias, interpret results relative to patient's use of biotin. Lab Interpretation (test code = 87186-8) [facility][id number] 14:45:24* Test Item Value Reference Range Interpretation Comments D-DIMER (test code = 8619497967) 0.99 See_Comment H [Automated message] The system [...] a diagnosis. Lab Interpretation (test code = 21967-9) [facility]CBC WITH [id number] 14:14:48* Test Item Value Reference Range Interpretation Comme nts WBC (test code = 6690-2) 7.86 See_Comment [Automated CodeCombata ViperMed] The system which generated this result transmitted reference range: 4.30 - 11.10 10*3/?L. The reference range was not used to interpret this result as normal/abnormal. RBC (test code = 789-8) 5.13 See_Comment [Automated messa ge] The system which [...] g/dL 31.6-35.1 L RDW-SD (test code = 20193-6) 47.8 fL 39.0-49.9 RDW-CV (test code = 788-0) 16.9 % 12.0-15.5 H PLT (test code = 777-3) 507 See_Comment H [Automated messa ge] The system which generated this result transmitted reference range: 166 - 358 10*3/?L. The reference range was not used to interpret this result as normal/abnormal. MPV (test code = 71789-8) 8.2 fL 9.5-12.9 L NRBC/100 WBC (test code = 4898848691) 0.0 See_Comment [Automated [employer] ssage] The system which generated this result transmitted reference range: 0.0 - 10.0 /100 WBCs. The reference range was not used to interpret this result as normal/abnormal. NRBC x10^3 (test code = 4816907647) See_Comment [Automated messa ge] The system which generated this result transmitted reference range: 10*3/?L. The reference range was not used to interpret this result as normal/abnormal. GRAN MAT (NEUT) % (test code = 770-8) 64.5 % IMM GRAN % (test code = 8868992082) 0.30 % LYMPH % (test code = 736-9) 25.6 % MONO % (test code = 5905-5) 7.5 % EOS % (test code = 713-8) 1.0 % BASO % (test code = 706-2) 1.1 % GRAN MAT x10^3(ANC) (test code = 5672040499) 5.07 10*3/uL 1.88-7.09 IMM GRAN x10^3 (test code = 8794144015) 0.00-0.06 LYMPH x10^3 (test code = 731-0) 2.01 10*3/uL 1.32-3.29 MONO x10^3 (test code = 742-7) 0.59 10*3/uL 0.33-0.92 EOS x10^3 (test code = 711-2) 0.08 10*3/uL 0.03-0.39 BASO x10^3 (test code = 704-7) 0.09 10*3/uL 0.01-0.07 H Lab Interpretation (test code = 69111-8) [facility] 13:17:22* Test Item Value Reference Range Interpretation Comme nts RPR SCREEN (atHomestars) (test co de = 420) Nonreactive Nonreactive HEMOGLOBIN [id number] 10:39:49* Test Item Value Reference Range Interpretation Comme nts HEMOGLOBIN A1C ELECTROPHORESIS (atHomestars) (test code = 3811) 5.8 % See_Comment [...] 5.7- 6.4% indicates increased risk for diabetes (prediabetes)."Trail Maintenance Worker ID - ADM VITAMIN [id number] 22:48:27* Test Item Value Reference Range Interpretation Comme nts VITAMIN B12 (atHomestars) (test c ode = 774) 227 pg/mL 213-816 Trail Maintenance Worker ID - MARCOTSH/FREE T4 IF [id number] 22:08:28* Test Item Value Reference Range Interpretation Comme nts THYROID STIMULATING HORMONE (E-Line MediaAKER) (test code = 772) 3.309 uIU/mL 0.350-4.940 Trail Maintenance Worker ID - JSHIV-1 ANTIGEN WITH HIV-1/2 [id number] 22:08:28* Test Item Value Reference Range Interpretation Comme nts HIV-1 ANTIGEN WITH HIV 1\\T\\2 ANTIBODY (2) (BEAKER) (test code = 2586) Nonreactive Nonreactive Trail Maintenance Worker ID - JSC-REACTIVE [id number] 21:49:44* Test Item Value Reference Range Interpretation Comme nts C-REACTIVE PROTEIN (BEAKER) (test code = 676) 0.35 mg/dL 0.00-0.50 Trail Maintenance Worker ID - JSCOMPREHENSIVE METABOLIC [id number] 21:49:43* Test Item Value Reference Range Interpretation [...] GFR is not applicable for dialysis patients Trail Maintenance Worker ID - JSLIPID [id number] 21:49:43* Test Item Value Reference Range Interpretation [...] Borderline 130-159 High 160-189 Very High >=190 Trail Maintenance Worker ID - JSCBC W/PLT COUNT & AUTO [id number] 21:34:03* Test Item Value Reference Range Interpretation [...] Interpretation Comme nts Height (test code = 5897302115) in Weight (test code = 2682812167) lbs Systolic BP (test code = 2903840933) mmHg Diastolic BP (test code = 8737006314) mmHg Heart Rate (test code = 4510134460) bpm BSA (test code = 5163732123) 2.00 m2 Ao root diam (test code = 4074268732) 3.20 cm Aortic root (test code = 3022866701) 3.2 cm Ao root annulus (test code = 1826956944) 3.2 cm LVOT diameter (test code = 4574522961) 1.99 cm LVOT area (test code = 7573414017) 3.10 cm2 LVIDD (test code = 6865216157) 5.10 cm Left Ventricular End Diastolic Volume by Teichholz Method (test code = 6114060) 123.0 mL IVS (test code = 7835112945) 1.34 cm Interventricular Septum Diastolic Thickness by 2D (test code = 3889889) 1.34 cm LVPWD (test code = 2425246829) 1.34 cm PW (test code = 9218302930) 1.34 cm 0.6-1.1 EF(Teich) (test code = 2779543763) 41.80 % LVIDS (test code = 0790390787) 4.00 cm Left Ventricular End Systolic Volume by Teichholz Method (test code = 2492028) 71.5 mL FS (test code = 5950293607) 21 % EF - 2D (test code = 70168259) 41.80 % LA size (test code = 9356863004) 4.6 cm Pulmonic Regurgitant End Max Velocity (test code = 5866543971) 119.4 cm/s LAV(MOD-sp4) (test code = 2529929063) 95.00 mL E wave decelartion time (test code = 1325606616) 0.15 s MV stenosis pressure 1/2 time (test code = 8922390340) 45.6 ms MV Peak A Evette (test code = 1890737802) 123.8 cm/s MV Peak E Evette (test code = 4559433780) 109.7 cm/s E/A ratio (test code = 9836047660) ratio MR max PG (test code = 2391595723) 87.20 mm[Hg] MR max evette (test code = 8021973955) 466.90 cm/s Mr max evette (test code = 8465058136) 466.9 m/s MV Prop V (test code = 6384247041) 51.00 cm/s MV E/e' septal (test code = 2367949197) 8.1 cm/s Tapse (test code = 5818415215) 2.21 cm LVOT stroke volume (test code = 5034109930) 49.80 cm3 LVOT peak evette (test code = 4713302551) 89.1 cm/s LVOT mn grad (test code = 6986535043) mmHg AV LVOT peak gradient (test code = 9240126439) mmHg LVOT peak VTI (test code = 9087294690) 16.0 cm LV V1 mean (test code = 8144812423) 64.30 cm/s Aortic valve mean velocity (test code = 3472123491) 133.8 cm/s Ao peak evette (test code = 5973655543) 175.3 cm/s Ao VTI (test code = 5881551448) 32.2 cm AV area by cont VTI (test code = 9850046106) 1.6 cm2 AV area peak evette (test code = 1693570671) 1.6 cm2 Ao max PG (test code = 5056555813) 12.30 mm[Hg] AV peak gradient (test code = 5151966167) mmHg AV valve area (test code = 4773473434) 1.55 cm2 AV mean gradient (test code = 9386756892) mmHg AV regurgitation pressure 1/2 time (test code = 3210977813) 358.5 ms AI dec slope (test code = 3864016931) 364.20 cm/s2 AI max evetet (test code = 2986280083) 445.80 cm/s AI max PG (test code = 7709863148) 79.50 mm[Hg] Radiology Study observation (narrative) (test code = 29708-1) LYNDSAY (test code = LYNDSAY) ?Left?Ventricle: Left [...] mL of Lumason ultrasound enhancing agent used. [facility] 10:43:32* Test Item Value Reference Range Interpretation Comme [facility] POCT GLU (test code = 4700249528) 148 mg/dL 70-110 H Lab Interpretation (test cod e = 47273-9) Abnormal [facility]ACTIV[facility] PARTIAL THRMPLAS [id number] 18:39:45* Test Item Value Reference Range Interpretation Comme [facility] APTT Patient (test code = 3173-2) See_Comment [Automated message] The system which generated this result transmitted reference range: 23 - 38 Seconds. The reference range was not used to interpret this result as normal/abnormal. LYNDSAY (test code = LYNDSAY) The [facility] patient population mean normal value for aPTT is 30 seconds. Lab Interpretation (test code = 41952-9) Normal [facility]PROT[facility] / [id number] 18:37:42* Test Item Value Reference Range Interpretation Comme [facility] PROTIME PATIENT (test code = 5964-2) See_Comment [Automated [employer]] The system which generated this result transmitted reference range: 12.0 - 14.7 Seconds. The reference range was not used to interpret this result as normal/abnormal. INR (test code = 6301-6) Normal INR <1.1; Warfarin Therapeutic range 2.0 to 3.0 or 2.5 to 3.5, depending upon the indications. Lab Interpretation (test code = 48390-5) Normal [facility] HospitalTROPONIN [id number] 18:32:01* Test Item Value Reference Range Interpretation Comments TROPONIN I (test code = 8609517288) 0.019 ng/mL See_Comment [Automated message] The system [...] of biotin. Lab Interpretation (test code = 93485-4) Normal [facility] HospitalN-TERMINAL [id number] 18:29:01* Test Item Value Reference Range Interpretation Comme nts NT-proBNP (test code = 2233983372) 2770 pg/mL See_Comment H [Automated message] The system which generated this result transmitted reference range: <=125. The reference range was not used to interpret this result as normal/abnormal. LYNDSAY (test code = LYNDSAY) Biotin has been reported to cause a negative bias, interpret results relative to patient's use of biotin. Lab Interpretation (test code = 44595-6) [facility]normal [facility] HospitalCOMP. METABOLIC PANEL (30582)2022-07-31 18:21:42* Test Item Value Reference Range Interpretation Comme nts NA (test code = 8450446063) 136 mmol/L 135-145 K (test code = 5358555316) 4.6 mmol/L 3.5-5.0 CL (test code = 5330939731) 104 mmol/L 98-108 CO2 TOTAL (test code = 4115824839) 26 mmol/L 23-31 AGAP (test code = 8747561519) 2-16 BUN (test code = 7616013506) 9 mg/dL 7-23 GLUCOSE (test code = 9468370939) 97 mg/dL 70-110 CREATININE (test code = 6994534844) 0.64 mg/dL 0.50-1.04 TOTAL BILI (test code = 2000137928) 0.5 mg/dL 0.1-1.1 CALCIUM (test code = 8341355647) 8.2 mg/dL 8.6-10.6 L T PROTEIN (test code = 0148170910) 6.5 g/dL 6.3-8.2 ALBUMIN (test code = 0576579724) 3.9 g/dL 3.5-5.0 ALK PHOS (test code = 0974091306) 93 U/L 34-122 ALTv (test code = 1742-6) 18 U/L 5-35 AST(SGOT) (test code = 3438567865) 19 U/L 13-40 eGFR (test code = 9359812944) mL/min/1.73m2 LYNDSAY (test code = LYNDSAY) Association [...] imaging tests). Lab Interpretation (test code = 99429-9) Abnormal [facility]LIPASE2023-[facility] 18:21:01* Test Item Value Reference Range Interpretation Comme nts LIPASE (test code = 0305719230) 54 U/L 0-220 Lab Interpretation (test cod e = 61439-0) Normal [facility] WITH [id number] 18:07:00* Test Item Value Reference Range Interpretation [...] g/dL 31.6-35.1 L RDW-SD (test code = 45094-6) 53.1 fL 39.0-49.9 H RDW-CV (test code = 788-0) 17.0 % 12.0-15.5 H PLT (test code = 777-3) See_Comment H [Automated messa ge] The system which generated this result transmitted reference range: 166 - 358 10*3/?L. The reference range was not used to interpret this result as normal/abnormal. MPV (test code = 09301-8) 8.2 fL 9.5-12.9 L NRBC/100 WBC (test code = 1831062513) See_Comment [Automated me ssage] The system which generated this result transmitted reference range: 0.0 - 10.0 /100 WBCs. The reference range was not used to interpret this result as normal/abnormal. NRBC x10^3 (test code = 0153810663) See_Comment [Automated messa ge] The system which generated this result transmitted reference range: 10*3/?L. The reference range was not used to interpret this result as normal/abnormal. GRAN MAT (NEUT) % (test code = 770-8) 64.0 % IMM GRAN % (test code = 9595330839) 0.40 % LYMPH % (test code = 736-9) 27.3 % MONO % (test code = 5905-5) 6.5 % EOS % (test code = 713-8) 1.1 % BASO % (test code = 706-2) 0.7 % GRAN MAT x10^3(ANC) (test code = 5977506597) 5.46 10*3/uL 1.88-7.09 IMM GRAN x10^3 (test code = 8002280177) 0.03 10*3/uL 0.00-0.06 LYMPH x10^3 (test code = 731-0) 2.32 10*3/uL 1.32-3.29 MONO x10^3 (test code = 742-7) 0.55 10*3/uL 0.33-0.92 EOS x10^3 (test code = 711-2) 0.09 10*3/uL 0.03-0.39 BASO x10^3 (test code = 704-7) 0.06 10*3/uL 0.01-0.07 Lab Interpretation (test code = 96149-1) Abnormal [facility] METABOLIC PANEL (NA, K, CL, CO2, GLUCOSE, BUN, CREATININE, CA)2022-05-08 06:37:01* Test Item Value Reference Range Interpretation Comme nts NA (test code = 4386903638) 137 mmol/L 135-145 K (test code = 3038615647) 3.8 mmol/L 3.5-5 CL (test code = 5300736889) 103 mmol/L 98-108 CO2 TOTAL (test code = 7833047835) 24 mmol/L 23-31 AGAP (test code = 8477844139) 2-16 BUN (test code = 8816994330) 13 mg/dL 7-23 GLUCOSE (test code = 8484036139) 90 mg/dL 70-110 CREATININE (test code = 7657962395) 0.69 mg/dL 0.5-1.04 CALCIUM (test code = 7700813663) 8.5 mg/dL 8.6-10.6 L eGFR (test code = 5315790407) mL/min/1.73m2 LYNDSAY (test code = LYNDSAY) Association [...] imaging tests). Lab Interpretation (test code = 28917-3) Abnormal [facility]MAGN[facility]IUM2022-10-20 06:37:01* Test Item Value Reference Range Interpretation Comme nts MAGNESIUM (test code = 0417754596) 2.1 mg/dL 1.7-2.4 Lab Interpretation (test cod e = 71929-6) Normal [facility] HospitalPHOSPHORUS2022-10-20 06:37:01* Test Item Value Reference Range Interpretation Comme nts PHOSPHORUS (test code = 3973006287) 4.7 mg/dL 2.5-5 Lab Interpretation (test cod e = 94526-5) Normal [facility] WITH [id number] 06:11:54* Test Item Value Reference Range Interpretation [...] 32.4 g/dL 31.6-35.1 RDW-SD (test code = 58339-5) 51.0 fL 39-49.9 H RDW-CV (test code = 788-0) 16.5 % 12-15.5 H PLT (test code = 777-3) See_Comment H [Automated messa ge] The system which generated this result transmitted reference range: 166 - 358 10*3/?L. The reference range was not used to interpret this result as normal/abnormal. MPV (test code = 38175-3) 8.3 fL 9.5-12.9 L NRBC/100 WBC (test code = 7965621902) See_Comment [Automated me ssage] The system which generated this result transmitted reference range: 0.0 - 10.0 /100 WBCs. The reference range was not used to interpret this result as normal/abnormal. NRBC x10^3 (test code = 0879544632) See_Comment [Automated messa ge] The system which generated this result transmitted reference range: 10*3/?L. The reference range was not used to interpret this result as normal/abnormal. GRAN MAT (NEUT) % (test code = 770-8) 64.5 % IMM GRAN % (test code = 2609103303) 0.50 % LYMPH % (test code = 736-9) 27.1 % MONO % (test code = 5905-5) 6.6 % EOS % (test code = 713-8) 0.6 % BASO % (test code = 706-2) 0.7 % GRAN MAT x10^3(ANC) (test code = 8782197177) 5.28 10*3/uL 1.88-7.09 IMM GRAN x10^3 (test code = 1060750321) 0.04 10*3/uL 0-0.06 LYMPH x10^3 (test code = 731-0) 2.22 10*3/uL 1.32-3.29 MONO x10^3 (test code = 742-7) 0.54 10*3/uL 0.33-0.92 EOS x10^3 (test code = 711-2) 0.05 10*3/uL 0.03-0.39 BASO x10^3 (test code = 704-7) 0.06 10*3/uL 0.01-0.07 Lab Interpretation (test code = 97946-9) [facility]normal [facility]2022-[facility]-07 01:18:10* Test Item Value Reference Range Interpretation Comme nts POCT GLU (test code = 1503137072) 120 mg/dL 70-110 H Lab Interpretation (test cod e = 01690-4) Abnormal [facility] HospitalType and Screen - ONCE [id number] 05:46:35* Test Item Value Reference Range Interpretation Comme nts ABO & RH (test code = 20) O POSITIVE Performed at [facility] Laboratory Services - [facility] Blood [address] [address] Free: [phone] No. [id number] IAT (test code = 1185) Negative Performed at [facility] Laboratory Services - [facility] Blood [address] [address] Free: [phone] No. [id number] [facility] HospitalBASIC [facility]ABOLIC PANEL (NA, K, CL, CO2, GLUCOSE, BUN, CREATININE, CA)2022-05-05 08:22:57* Test Item Value Reference Range Interpretation Comme nts NA (test code = 2125499864) 136 mmol/L 135-145 K (test code = 2805869868) 4.9 mmol/L 3.5-5 CL (test code = 5479782031) 108 mmol/L 98-108 CO2 TOTAL (test code = 9489993649) 22 mmol/L 23-31 L AGAP (test code = 4909697309) 2-16 BUN (test code = 1425362287) 12 mg/dL 7-23 GLUCOSE (test code = 6955561999) 155 mg/dL 70-110 H CREATININE (test code = 3091188255) 0.63 mg/dL 0.5-1.04 CALCIUM (test code = 5372326293) 8.4 mg/dL 8.6-10.6 L eGFR (test code = 7426493951) mL/min/1.73m2 LYNDSAY (test code = LYNDSAY) Association [...] imaging tests). Lab Interpretation (test code = 20617-2) Abnormal [facility] HospitalPROTHROMBIN TIME / [id number] 08:22:37* Test Item Value Reference Range Interpretation Comme [facility] PROTIME PATIENT (test code = 5964-2) See_Comment [Automated [employer]] The system which generated this result transmitted reference range: 10.1 - 12.6 Seconds. The reference range was not used to interpret this result as normal/abnormal. INR (test code = 6301-6) Normal INR <1.1; Warfarin Therapeutic range 2.0 to 3.0 or 2.5 to 3.5, depending upon the indications. Lab Interpretation (test code = 94810-4) Normal [facility] HospitalaPTT2022-[facility]-17 08:22:37* Test Item Value Reference Range Interpretation Comme [facility] APTT Patient (test code = 3173-2) See_Comment [Automated [employer]] The system which generated this result transmitted reference range: 26 - 36 Seconds. The reference range was not used to interpret this result as normal/abnormal. Lab Interpretation (test code = 57494-6) Normal [facility] HospitalFIBRINOGEN2022-10-17 08:22:37* Test Item Value Reference Range Interpretation Comme [facility] Fibrinogen (test code = 3486649036) 294 mg/dL 167-453 Lab Interpretation (test cod e = 68825-6) Normal [facility] HospitalCBC WITH [id number] 08:15:01* Test Item Value Reference Range Interpretation Comme [facility] WBC (test code = 6690-2) See_Comment [Automated [employer]] The system which generated this result transmitted reference range: 4.30 - 11.10 10*3/?L. The reference range was not used to interpret this result as normal/abnormal. RBC (test code = 789-8) See_Comment [Automated [employer]] The system which generated this result transmitted [...] g/dL 31.6-35.1 L RDW-SD (test code = 98861-0) 52.9 fL 39-49.9 H RDW-CV (test code = 788-0) 16.8 % 12-15.5 H PLT (test code = 777-3) See_Comment H [Automated messa ge] The system which generated this result transmitted reference range: 166 - 358 10*3/?L. The reference range was not used to interpret this result as normal/abnormal. MPV (test code = 44679-5) 8.3 fL 9.5-12.9 L NRBC/100 WBC (test code = 8221701422) See_Comment [Automated [employer] ssage] The system which generated this result transmitted reference range: 0.0 - 10.0 /100 WBCs. The reference range was not used to interpret this result as normal/abnormal. NRBC x10^3 (test code = 8009588571) See_Comment [Automated Code[employer] ge] The system which generated this result transmitted reference range: 10*3/?L. The reference range was not used to interpret this result as normal/abnormal. GRAN MAT (NEUT) % (test code = 770-8) 86.4 % IMM GRAN % (test code = 3434092454) 0.40 % LYMPH % (test code = 736-9) 11.7 % MONO % (test code = 5905-5) 1.1 % EOS % (test code = 713-8) 0.0 % BASO % (test code = 706-2) 0.4 % GRAN MAT x10^3(ANC) (test code = 5747975522) 6.36 10*3/uL 1.88-7.09 IMM GRAN x10^3 (test code = 3479008982) 0.03 10*3/uL 0-0.06 LYMPH x10^3 (test code = 731-0) 0.86 10*3/uL 1.32-3.29 L MONO x10^3 (test code = 742-7) 0.08 10*3/uL 0.33-0.92 L EOS x10^3 (test code = 711-2) 0.03-0.39 L BASO x10^3 (test code = 704-7) 0.03 10*3/uL 0.01-0.07 Lab Interpretation (test code = 08665-8) Abnormal [facility] HospitalVITAMIN D, [id number] 20:14:03* Test Item Value Reference Range Interpretation Comme nts VIT D 25OH (test code = 40994-7) 22 ng/mL 25-80 L LYNDSAY (test code = LYNDSAY) Deficiency: <20 ng/mLInsufficiency: 20-24 ng/mLOptimal: 25-80 ng/mL Lab Interpretation (test code = 75999-2) Abnormal [facility] (NA, K, CL, CO2, GLUCOSE, BUN, CREATININE, CA)2022-04-15 11:27:57* Test Item Value Reference Range Interpretation Comme nts NA (test code = 5550070848) 138 mmol/L 135-145 K (test code = 8004043215) 3.9 mmol/L 3.5-5 CL (test code = 4510053448) 106 mmol/L 98-108 CO2 TOTAL (test code = 0846159123) 23 mmol/L 23-31 AGAP (test code = 4130431594) 2-16 BUN (test code = 2480957900) 10 mg/dL 7-23 GLUCOSE (test code = 5022301469) 91 mg/dL 70-110 CREATININE (test code = 9002145424) 0.65 mg/dL 0.5-1.04 CALCIUM (test code = 0615833526) 8.1 mg/dL 8.6-10.6 L eGFR (test code = 3230603719) mL/min/1.73m2 LYNDSAY (test code = LYNDSAY) Association [...] imaging tests). Lab Interpretation (test code = 27354-4) Abnormal [facility] HospitalSTROKE Protocol - Transthoracic echo (TTE) 2022-04-14 22:07:33* Test Item Value Reference Range Interpretation Comme nts Height (test code = 7304985993) in Weight (test code = 2854409126) lbs Systolic BP (test code = 8288943100) mmHg Diastolic BP (test code = 0175420683) mmHg Heart Rate (test code = 3689231915) bpm BSA (test code = 3513120271) 1.94 m2 TASV (test code = 4228545195) 15.5 cm/s LVIDD (test code = 3629515252) 6.00 cm Left Ventricular End Diastolic Volume by Teichholz Method (test code = 8734902) 183.0 mL IVS (test code = 9401588594) 1.09 cm Interventricular Septum Diastolic Thickness by 2D (test code = 8854830) 1.09 cm LVPWD (test code = 1419768872) 0.94 cm PW (test code = 0796270303) 0.94 cm 0.6-1.1 EF(Teich) (test code = 7991650573) 40.30 % LVIDS (test code = 6420256430) 4.80 cm Left Ventricular End Systolic Volume by Teichholz Method (test code = 9940483) 109.2 mL FS (test code = 8316742794) 20 % EF - 2D (test code = 93735069) 40.30 % LVOT diameter (test code = 0094958447) 2.05 cm LVOT area (test code = 0038866975) 3.30 cm2 Ao root diam (test code = 5191811973) 3.10 cm Aortic root (test code = 2190706038) 3.1 cm Ao root annulus (test code = 4075476398) 3.1 cm LA size (test code = 1413088608) 4.2 cm LAV(MOD-sp4) (test code = 8120292133) 64.90 mL MV Peak A Evette (test code = 3280343657) 115.7 cm/s E wave decelartion time (test code = 0986020171) 0.15 s MV Peak E Evette (test code = 7617053747) 106.2 cm/s E/A ratio (test code = 6170660260) ratio LVOT stroke volume (test code = 9877033688) 48.30 cm3 LVOT peak evette (test code = 9559343458) 78.4 cm/s LVOT mn grad (test code = 7934706701) mmHg AV LVOT peak gradient (test code = 6475889401) mmHg LVOT peak VTI (test code = 0175513950) 14.7 cm LV V1 mean (test code = 3214392598) 51.40 cm/s Ao peak evette (test code = 5112395231) 154.7 cm/s AV area peak evette (test code = 4328642799) 1.7 cm2 Ao max PG (test code = 8574632940) 9.60 mm[Hg] AV peak gradient (test code = 6941106457) mmHg AV regurgitation pressure 1/2 time (test code = 1466612137) 257.3 ms AI dec slope (test code = 0710410537) 498.10 cm/s2 AI max evette (test code = 5902388929) 437.60 cm/s AI max PG (test code = 6443718830) 77.80 mm[Hg] Tapse (test code = 5960380295) 2.19 cm LA Volume Index (BP) (test code = 0521843714) 32.0 mL/m2 LA volume (BP) (test code = 9743360811) 62.1 mL LAV(MOD-sp2) (test code = 1775147630) 52.70 mL A4C EF (test code = 1633620968) 44.80 % EF(sp4-el) (test code = 5936488462) 45.20 % SV(MOD-sp4) (test code = 5002123092) 71.20 mL SV(sp4-el) (test code = 2927159313) 73.90 mL LV Diastolic Volume (BP) (test code = 4976776831) 146.3 mL A2C EF (test code = 7317539464) 52.00 % EF(MOD-bp) (test code = 7648358157) 46.70 % EF(sp2-el) (test code = 5229276929) 52.40 % LV Systolic Volume (BP) (test code = 2393879957) 77.9 mL SV(MOD-bp) (test code = 5219860300) 68.40 mL SV(MOD-sp2) (test code = 8244711483) 69.20 mL EF (test code = 6642572211) Left Ventricular Stroke Volume by 2-D Biplane-MOD (test code = 2482894) 68.4 mL Radiology Study observation (narrative) (test code = 80061-8) LYNDSAY (test code = LYNDSAY) ?Left?Ventricle: Left [...] agent used and saline contrast was performed. [facility] HospitalKEPPRA (LEVETIRACETAM)2022-04-14 16:48:36* Test Item Value Reference Range Interpretation Comme nts KEPPRA (test code = 7795513628) 12-46 L LYNDSAY (test code = LYNDSAY) Therapeutic range: 12-46 ?g/mL ? ?Toxic: Not well established.Test developed and characteristics determined by [facility] Laboratory Services. Lab Interpretation (test code = 67646-1) Abnormal [facility] HospitalBasi Metabolic Panel (Na, K, Cl, CO2, Glucose, BUN, Creatinine, Ca)2022-04-14 10:50:11* Test Item Value Reference Range Interpretation Comme nts NA (test code = 1753891142) 136 mmol/L 135-145 K (test code = 6474571399) 3.8 mmol/L 3.5-5 CL (test code = 4945213405) 105 mmol/L 98-108 CO2 TOTAL (test code = 0423034778) 25 mmol/L 23-31 AGAP (test code = 5461630677) 2-16 BUN (test code = 2286265390) 9 mg/dL 7-23 GLUCOSE (test code = 1185687738) 101 mg/dL 70-110 CREATININE (test code = 7472518628) 0.66 mg/dL 0.5-1.04 CALCIUM (test code = 0235412972) 8.1 mg/dL 8.6-10.6 L eGFR (test code = 6867628279) mL/min/1.73m2 LYNDSAY (test code = LYNDSAY) Association [...] imaging tests). Lab Interpretation (test code = 61600-4) Abnormal [facility] HospitalMagensium, Jpxuh4501-51-95 10:50:11* Test Item Value Reference Range Interpretation Comme nts MAGNESIUM (test code = 6270254180) 1.9 mg/dL 1.7-2.4 Lab Interpretation (test cod e = 63977-5) Normal [facility] HospitalThyroid Stimulating Ocdecit6111-95-66 22:21:44 * Test Item Value Reference Range Interpretation Comme nts TSH (test code = 2358152689) See_Comment Biotin has been reported to cause a negative bias, interpret results relative to patient's use of biotin. [Automated message] The system which generated this result transmitted reference range: 0.45 - 4.70 mIU/L. The reference range was not used to interpret this result as normal/abnormal. Lab Interpretation (test code = 30658-2) Normal [facility] HospitalGLYCOSYLATED HEMOGLOBIN (A1C)2022-04-13 21:53:43* Test Item Value Reference Range Interpretation Comme nts HGB A1C (test code = 4548-4) 5.8 % 4-5.7 H LYNDSAY (test code = LYNDSAY) Reference RangesNormal: <5.7%Prediabetes: 5.7 - 6.4%Diabetes: > 6.5% Lab Interpretation (test code = 00452-1) Abnormal [facility] HospitalFASTING LIPID PANEL (76219)(TOTAL CHOLESTEROL, TRIGLYCERIDES, HDL)2022-04-13 21:34:53* Test Item Value Reference Range Interpretation Comme nts CHOL (test code = 9434180556) 201 mg/dL 120-200 H HDL (test code = 4430071628) 56 mg/dL See_Comment [Automated CodeCombata ViperMed] The system which generated this result transmitted reference range: >=50. The reference range was not used to interpret this result as normal/abnormal. HDLC RATIO (test code = 0485970497) See_Comment [Automated CodeCombata ViperMed] The system which generated this result transmitted reference range: <=4.5. The reference range was not used to interpret this result as normal/abnormal. TRIG (test code = 1710279272) 355 mg/dL 30-170 H LDL CHOL (test code = 42149-5) 74 mg/dL See_Comment [Automated CodeCombata ge] The system which generated this result transmitted reference range: <=160. The reference range was not used to interpret this result as normal/abnormal. VLDL (test code = 7601246545) 71 mg/dL 5-60 H Lab Interpretation (test code = 93457-2) Abnormal [facility] HospitalTroponin I - Code Zysptd0655-78-11 18:46:27* Test Item Value Reference Range Interpretation Comments TROPONIN I (test code = 9481061921) 0.013 ng/mL See_Comment [Automated message] The system [...] of biotin. Lab Interpretation (test code = 18543-8) Normal [facility] Metabolic Panel (NA, K, CL, CO2, Glucose, BUN, Creatinine, CA) - Code Bdbjvj7031-44-54 18:35:07* Test Item Value Reference Range Interpretation Comme nts NA (test code = 8975937391) 136 mmol/L 135-145 K (test code = 1571684684) 4.3 mmol/L 3.5-5 CL (test code = 7025161615) 105 mmol/L 98-108 CO2 TOTAL (test code = 2851453101) 27 mmol/L 23-31 AGAP (test code = 5307023057) 2-16 BUN (test code = 7587227543) 8 mg/dL 7-23 GLUCOSE (test code = 3115189140) 130 mg/dL 70-110 H CREATININE (test code = 9962431159) 0.75 mg/dL 0.5-1.04 CALCIUM (test code = 0987260661) 8.5 mg/dL 8.6-10.6 L eGFR (test code = 3382048584) mL/min/1.73m2 LYNDSAY (test code = LYNDSAY) Association [...] imaging tests). Lab Interpretation (test code = 75638-3) Abnormal [facility] HospitalaPTT - Code Vwwpjg8704-60-71 18:32:46* Test Item Value Reference Range Interpretation Comme [facility] APTT Patient (test code = 3173-2) See_Comment [Automated message] The system which generated this result transmitted reference range: 23 - 38 Seconds. The reference range was not used to interpret this result as normal/abnormal. LYNDSAY (test code = LYNDSAY) The [facility] patient population mean normal value for aPTT is 30 seconds. Lab Interpretation (test code = 35818-3) [facility] - Code [id number] 18:30:45* Test Item Value Reference Range Interpretation Comme [facility] PROTIME PATIENT (test code = 5964-2) See_Comment [Automated [employer]roNiche ge] The system which generated this result transmitted reference range: 12.0 - 14.7 Seconds. The reference range was not used to interpret this result as normal/abnormal. INR (test code = 6301-6) Normal INR <1.1; Warfarin Therapeutic range 2.0 to 3.0 or 2.5 to 3.5, depending upon the indications. Lab Interpretation (test code = 44451-9) Normal [facility] without Diff - Code [id number] 18:23:07* Test Item Value Reference Range Interpretation [...] result as normal/abnormal. MPV (test code = 86936-3) 8.1 fL 9.5-12.9 L RDW-CV (test code = 788-0) 16.1 % 12-15.5 H RDW-SD (test code = 74782-4) 49.2 fL 39-49.9 NRBC x10^3 (test code = 2250857420) See_Comment [Automated messa ge] The system which generated this result transmitted reference range: 10*3/?L. The reference range was not used to interpret this result as normal/abnormal. NRBC/100 WBC (test code = 6258958417) See_Comment [Automated messa ge] The system which generated this result transmitted reference range: 0.0 - 10.0 /100 WBCs. The reference range was not used to interpret this result as normal/abnormal. IPF % (test code = 0213009823) Lab Interpretation (test code = 05917-6) [id number] 21:06:40* Test Item Value Reference Range Interpretation Comments TROPONIN I (test code = 1015009221) 0.005 ng/mL See_Comment [Automated message] The system [...] of biotin. Lab Interpretation (test code = 18614-5) [facility] (57148)2021-11-23 20:55:42* Test Item Value Reference Range Interpretation Comme nts NA (test code = 5312919368) 137 mmol/L 135-145 K (test code = 8689545867) 4.3 mmol/L 3.5-5.0 CL (test code = 8822516522) 104 mmol/L 98-108 CO2 TOTAL (test code = 2030349365) 22 mmol/L 23-31 L AGAP (test code = 5760131920) 2-16 BUN (test code = 2464634363) 15 mg/dL 7-23 GLUCOSE (test code = 4086938134) 114 mg/dL 70-110 H CREATININE (test code = 0461848575) 0.68 mg/dL 0.50-1.04 TOTAL BILI (test code = 0257205674) 0.5 mg/dL 0.1-1.1 CALCIUM (test code = 4399694286) 9.1 mg/dL 8.6-10.6 T PROTEIN (test code = 5988990079) 7.3 g/dL 6.3-8.2 ALBUMIN (test code = 1452458544) 4.4 g/dL 3.5-5.0 ALK PHOS (test code = 4804612811) 243 U/L 34-122 H ALTv (test code = 1742-6) 24 U/L 5-35 AST(SGOT) (test code = 1488842560) 30 U/L 13-40 eGFR (test code = 5990327068) mL/min/1.73m2 LYNDSAY (test code = LYNDSAY) Association [...] imaging tests). Lab Interpretation (test code = 14175-7) [facility]55:22* Test Item Value Reference Range Interpretation Comme nts LIPASE (test code = 1916574917) 96 U/L 0-220 Lab Interpretation (test cod e = 91285-9) [facility] [id number] 20:46:00* Test Item Value Reference Range Interpretation Comme nts POCT PREG (test code = 1605) negative On board controls acceptable with C Line (test code = 3574) present POCT PREG LOT # (test code = 3575) [id number] POCT PREG TEST DATE ( test code = 3576) 04/18/2023 Lab Interpretation (test cod e = 18344-3) Normal [facility] WITH [id number] 20:40:38* Test Item Value Reference Range Interpretation [...] 31.8 g/dL 31.6-35.1 RDW-SD (test code = 68357-1) 53.7 fL 39.0-49.9 H RDW-CV (test code = 788-0) 17.2 % 12.0-15.5 H PLT (test code = 777-3) See_Comment H [Automated messa ge] The system which generated this result transmitted reference range: 166 - 358 10*3/?L. The reference range was not used to interpret this result as normal/abnormal. MPV (test code = 43795-3) 8.5 fL 9.5-12.9 L NRBC/100 WBC (test code = 9770857807) See_Comment [Automated me ssage] The system which generated this result transmitted reference range: 0.0 - 10.0 /100 WBCs. The reference range was not used to interpret this result as normal/abnormal. NRBC x10^3 (test code = 1428494240) <0.01 See_Comment [Automated messa ge] The system which generated this result transmitted reference range: 10*3/?L. The reference range was not used to interpret this result as normal/abnormal. GRAN MAT (NEUT) % (test code = 770-8) 53.7 % IMM GRAN % (test code = 9552457352) 0.90 % LYMPH % (test code = 736-9) 32.6 % MONO % (test code = 5905-5) 10.1 % EOS % (test code = 713-8) 1.5 % BASO % (test code = 706-2) 1.2 % GRAN MAT x10^3(ANC) (test code = 5232846057) 4.98 10*3/uL 1.88-7.09 IMM GRAN x10^3 (test code = 5352184702) 0.08 10*3/uL 0.00-0.06 H LYMPH x10^3 (test code = 731-0) 3.02 10*3/uL 1.32-3.29 MONO x10^3 (test code = 742-7) 0.94 10*3/uL 0.33-0.92 H EOS x10^3 (test code = 711-2) 0.14 10*3/uL 0.03-0.39 BASO x10^3 (test code = 704-7) 0.11 10*3/uL 0.01-0.07 H Lab Interpretation (test code = 75658-4) [facility])2021-11-23 20:17:33* Test Item Value Reference Range Interpretation Comme nts POCT GLU (test code = 6143991931) 111 mg/dL 70-110 H Notified Provide r Lab Interpretation (test code = 17459-7) [facility]normal [facility], THINPREP, [id number] 00:00:00 * Test Item Value Reference Range Interpretation Comme nts SOURCE: (test code = 8001) Endocervical SLIDES: (test code = 8011) 1 LMP: (test code = 8021) 06/03/2021 SPECIMEN ADEQUACY: (test code = 60680) (NOTE) INTERPRETATION: (test code = 87886) ASCUS/EPITH. ABNORMALITY; SEE BELOW MEDICARE NURSE: (test code = 8101) CHANA Thacker(ASCP)[facility] PATHOLOGIST INTERPRETATION BY: (test code = 8122) Nahid Russell M.D. LOCATION: (test code = 56106) (NOTE) CPT: (test code = 8140) (NOTE) PAP TEST, THINPREP, [id number] 00:00:00* Test Item Value Reference Range Interpretation Comme nts SOURCE: (test code = 8001) Endocervical SLIDES: (test code = 8011) 1 LMP: (test code = 8021) 06/03/2021 SPECIMEN ADEQUACY: (test code = 93582) (NOTE) INTERPRETATION: (test code = 23053) ASCUS/EPITH. ABNORMALITY; SEE BELOW MEDICARE NURSE: (test code = 8101) CHANA Thacker(ASCP)[facility] PATHOLOGIST INTERPRETATION BY: (test code = 8122) Nahid Russell M.D. LOCATION: (test code = 54970) (NOTE) CPT: (test code = 8140) (NOTE) PAP TEST, THINPREP, [id number] 00:00:00* Test Item Value Reference Range Interpretation Comme nts SOURCE: (test code = 8001) Endocervical SLIDES: (test code = 8011) 1 LMP: (test code = 8021) 06/03/2021 SPECIMEN ADEQUACY: (test code = 69014) (NOTE) INTERPRETATION: (test code = 62821) ASCUS/EPITH. ABNORMALITY; SEE BELOW MEDICARE NURSE: (test code = 8101) CHANA Thacker(ASC)[facility] PATHOLOGIST INTERPRETATION BY: (test code = 8122) Nahid Russell M.D. LOCATION: (test code = 17432) (NOTE) CPT: (test code = 8140) (NOTE) PAP TEST, THINPREP, [id number] 00:00:00* Test Item Value Reference Range Interpretation Comme nts SOURCE: (test code = 8001) Endocervical SLIDES: (test code = 8011) 1 LMP: (test code = 8021) 06/03/2021 SPECIMEN ADEQUACY: (test code = 47213) (NOTE) INTERPRETATION: (test code = 18925) ASCUS/EPITH. ABNORMALITY; SEE BELOW MEDICARE NURSE: (test code = 8101) CHANA Thacker(ASCP)[facility] PATHOLOGIST INTERPRETATION BY: (test code = 8122) Nahid Russell M.D. LOCATION: (test code = 89082) (NOTE) CPT: (test code = 8140) (NOTE) HPV HIGH RISK WITH GENOTYPE, [id number] 00:00:00* Test Item Value Reference Range Interpretation Comme nts HPV HIGH RISK INTERP (test c ode = 36514) POSITIVE HPV 16 (test code = 87847) POSITIVE HPV 18 (test code = 51072) NEGATIVE HPV, HR, OTHER GENOTYPES (te st code = 09168) POSITIVE HPV HIGH RISK WITH GENOTYPE, [id number] 00:00:00* Test Item Value Reference Range Interpretation Comme nts HPV HIGH RISK INTERP (test c ode = 92096) POSITIVE HPV 16 (test code = 16663) POSITIVE HPV 18 (test code = 37510) NEGATIVE HPV, HR, OTHER GENOTYPES (te st code = 17595) POSITIVE HPV HIGH RISK WITH GENOTYPE, [id number] 00:00:00* Test Item Value Reference Range Interpretation Comme nts HPV HIGH RISK INTERP (test c ode = 81830) POSITIVE HPV 16 (test code = 62023) POSITIVE HPV 18 (test code = 37323) NEGATIVE HPV, HR, OTHER GENOTYPES (te st code = 60033) POSITIVE HPV HIGH RISK WITH GENOTYPE, [id number] 00:00:00* Test Item Value Reference Range Interpretation Comme nts HPV HIGH RISK INTERP (test c ode = 30426) POSITIVE HPV 16 (test code = 20835) POSITIVE HPV 18 (test code = 94145) NEGATIVE HPV, HR, OTHER GENOTYPES (te st code = 29377) POSITIVE [id number] 03:22:48* Test Item Value Reference Range Interpretation Comme nts APPEARANCE (test code = 8786125083) Hazy Clear A COLOR (test code = 3442009028) Yellow Yellow PH (test code = 4466584904) 4.8-8.0 SP GRAVITY (test code = 9202409866) 1.003-1.030 GLU U QUAL (test code = 5788210738) Normal Normal BLOOD (test code = 2611548461) Negative Negative Interference fro m ascorbic acid may cause false negative results. KETONES (test code = 2411215227) 5 mg/dL Negative A PROTEIN (test code = 2887-8) Negative Negative UROBILIN (test code = 4544516980) 4.0 mg/dL Normal A BILIRUBIN (test code = 1750131448) Negative Negative NITRITE (test code = 4338714590) Negative Negative LEUK GRUPO (test code = 1605905525) Negative Negative RBC/HPF (test code = 9255264759) See_Comment [Automated [employer]] The system which generated this result transmitted reference range: 0 - 3 HPF. The reference range was not used to interpret this result as normal/abnormal. WBC/HPF (test code = 7674556842) <1 See_Comment [Automated [employer]] The system which generated this result transmitted reference range: 0 - 5 HPF. The reference range was not used to interpret this result as normal/abnormal. BACTERIA (test code = 4406548012) Few Negative A SQ EPITH (test code = 7157973879) HPF Lab Interpretation (test code = 03682-7) [facility]IS[facility] 03:22:48* Test Item Value Reference Range Interpretation Comme nts APPEARANCE (test code = 0819501782) Hazy Clear A COLOR (test code = 6394875304) Yellow Yellow PH (test code = 8844567334) 4.8-8.0 SP GRAVITY (test code = 8242400683) 1.003-1.030 GLU U QUAL (test code = 4186782534) Normal Normal BLOOD (test code = 2608572817) Negative Negative KETONES (test code = 1400060873) 5 mg/dL Negative A PROTEIN (test code = 2887-8) Negative Negative UROBILIN (test code = 6659553265) 4.0 mg/dL Normal A BILIRUBIN (test code = 1273743546) Negative Negative NITRITE (test code = 0926499820) Negative Negative LEUK GRUPO (test code = 0701069800) Negative Negative RBC/HPF (test code = 3765036719) See_Comment [Automated [employer]] The system which generated this result transmitted reference range: 0 - 3 HPF. The reference range was not used to interpret this result as normal/abnormal. WBC/HPF (test code = 8730818412) <1 See_Comment [Automated [employer] ge] The system which generated this result transmitted reference range: 0 - 5 HPF. The reference range was not used to interpret this result as normal/abnormal. BACTERIA (test code = 1050763126) Few Negative A SQ EPITH (test code = 6593418599) HPF Lab Interpretation (test code = 55533-4) Abnormal [facility] [id number] 02:45:00* Test Item Value Reference Range Interpretation Comments TROPONIN I (test code = 5607029706) 0.002 ng/mL See_Comment [Automated message] The system [...] of biotin. Lab Interpretation (test code = 66848-5) Normal [facility] [id number] 02:45:00* Test Item Value Reference Range Interpretation Comme nts TROPONIN I (test code = 2776832260) 0.002 ng/mL See_Comment [Automated [employer]] The system which generated this result transmitted reference range: <=0.034. The reference range was not used to interpret this result as normal/abnormal. LYNDSAY (test code = LYNDSAY) Lab Interpretation (test code = 29556-9) Normal [facility] [id number] 02:41:57* Test Item Value Reference Range Interpretation Comme nts NT-proBNP (test code = 7193249161) 169 pg/mL See_Comment H [Automated message] The system which generated this result transmitted reference range: <=125. The reference range was not used to interpret this result as normal/abnormal. LYNDSAY (test code = LYNDSAY) Biotin has been reported to cause a negative bias, interpret results relative to patient's use of biotin. Lab Interpretation (test code = 61303-3) Abnormal [facility] [id number]-[id number] 02:41:57* Test Item Value Reference Range Interpretation Comme nts NT-proBNP (test code = 2802330617) 169 pg/mL See_Comment H [Automated CodeCombata ge] The system which generated this result transmitted reference range: <=125. The reference range was not used to interpret this result as normal/abnormal. LYNDSAY (test code = LYNDSAY) Lab Interpretation (test code = 16967-2) [facility]OL[facility] (10541)2021-03-17 02:09:13* Test Item Value Reference Range Interpretation Comme nts NA (test code = 5790955748) 137 mmol/L 135-145 K (test code = 4612639116) 4.2 mmol/L 3.5-5.0 CL (test code = 8080059771) 102 mmol/L 98-108 CO2 TOTAL (test code = 4911890829) 25 mmol/L 23-31 AGAP (test code = 1115654572) 2-16 BUN (test code = 2495253048) 18 mg/dL 7-23 GLUCOSE (test code = 9661511707) 144 mg/dL 70-110 H CREATININE (test code = 1241421933) 0.77 mg/dL 0.50-1.04 TOTAL BILI (test code = 9055941910) 0.4 mg/dL 0.1-1.1 CALCIUM (test code = 7238190711) 8.9 mg/dL 8.6-10.6 T PROTEIN (test code = 0629695644) 6.8 g/dL 6.3-8.2 ALBUMIN (test code = 4536941035) 3.9 g/dL 3.5-5.0 ALK PHOS (test code = 2830413149) 84 U/L 34-122 ALTv (test code = 1742-6) 13 U/L 5-35 AST(SGOT) (test code = 5630793390) 17 U/L 13-40 eGFR (test code = 5948267189) mL/min/1.73m2 LYNDSAY (test code = YLNDSAY) Association of Glomerular Filtration Rate (GFR) and [...] imaging tests). Lab Interpretation (test code = 66940-6) Abnormal [facility]. METABOLIC PANEL (10860)2021-03-17 02:09:13* Test Item Value Reference Range Interpretation Comme nts NA (test code = 9251972615) 137 mmol/L 135-145 K (test code = 2334834101) 4.2 mmol/L 3.5-5.0 CL (test code = 2535351523) 102 mmol/L 98-108 CO2 TOTAL (test code = 3128737143) 25 mmol/L 23-31 AGAP (test code = 9112069303) 2-16 BUN (test code = 0969689047) 18 mg/dL 7-23 GLUCOSE (test code = 8349653338) 144 mg/dL 70-110 H CREATININE (test code = 3732131752) 0.77 mg/dL 0.50-1.04 TOTAL BILI (test code = 3188025705) 0.4 mg/dL 0.1-1.1 CALCIUM (test code = 9117642392) 8.9 mg/dL 8.6-10.6 T PROTEIN (test code = 2011216318) 6.8 g/dL 6.3-8.2 ALBUMIN (test code = 6065050449) 3.9 g/dL 3.5-5.0 ALK PHOS (test code = 9705000650) 84 U/L 34-122 ALTv (test code = 1742-6) 13 U/L 5-35 AST(SGOT) (test code = 6097398561) 17 U/L 13-40 eGFR (test code = 1947080060) mL/min/1.73m2 LYNDSAY (test code = LYNDSAY) Lab Interpretation (test cod e = 96887-7) Abnormal [facility] WITH [id number] 01:56:33* Test Item Value Reference Range Interpretation Comme nts WBC (test code = 6690-2) See_Comment H [Automated [employer]] The system which generated this result transmitted reference range: 4.30 - 11.10 10*3/?L. The reference range was not used to interpret this result as normal/abnormal. RBC (test code = 789-8) See_Comment [Automated [employer]] The system which generated this result transmitted [...] g/dL 31.6-35.1 L RDW-SD (test code = 21424-8) 55.5 fL 39.0-49.9 H RDW-CV (test code = 788-0) 18.9 % 12.0-15.5 H PLT (test code = 777-3) See_Comment H [Automated messa ge] The system which generated this result transmitted reference range: 166 - 358 10*3/?L. The reference range was not used to interpret this result as normal/abnormal. MPV (test code = 85905-4) 8.2 fL 9.5-12.9 L NRBC/100 WBC (test code = 4961454716) See_Comment [Automated [employer] ssage] The system which generated this result transmitted reference range: 0.0 - 10.0 /100 WBCs. The reference range was not used to interpret this result as normal/abnormal. NRBC x10^3 (test code = 7799914502) <0.01 See_Comment [Automated messa ge] The system which generated this result transmitted reference range: 10*3/?L. The reference range was not used to interpret this result as normal/abnormal. GRAN MAT (NEUT) % (test code = 770-8) 61.7 % IMM GRAN % (test code = 6283796679) 0.80 % LYMPH % (test code = 736-9) 28.5 % MONO % (test code = 5905-5) 6.3 % EOS % (test code = 713-8) 1.8 % BASO % (test code = 706-2) 0.9 % GRAN MAT x10^3(ANC) (test code = 9945000637) 7.31 10*3/uL 1.88-7.09 H IMM GRAN x10^3 (test code = 4168596839) 0.09 10*3/uL 0.00-0.06 H LYMPH x10^3 (test code = 731-0) 3.38 10*3/uL 1.32-3.29 H MONO x10^3 (test code = 742-7) 0.75 10*3/uL 0.33-0.92 EOS x10^3 (test code = 711-2) 0.21 10*3/uL 0.03-0.39 BASO x10^3 (test code = 704-7) 0.11 10*3/uL 0.01-0.07 H Lab Interpretation (test code = 85482-0) Abnormal [facility] WITH [id number] 01:56:33* Test Item Value Reference Range Interpretation [...] g/dL 31.6-35.1 L RDW-SD (test code = 60049-4) 55.5 fL 39.0-49.9 H RDW-CV (test code = 788-0) 18.9 % 12.0-15.5 H PLT (test code = 777-3) See_Comment H [Automated messa ge] The system which generated this result transmitted reference range: 166 - 358 10*3/?L. The reference range was not used to interpret this result as normal/abnormal. MPV (test code = 94031-6) 8.2 fL 9.5-12.9 L NRBC/100 WBC (test code = 3283210644) See_Comment [Automated [employer] ssage] The system which generated this result transmitted reference range: 0.0 - 10.0 /100 WBCs. The reference range was not used to interpret this result as normal/abnormal. NRBC x10^3 (test code = 2608466388) <0.01 See_Comment [Automated messa ge] The system which generated this result transmitted reference range: 10*3/?L. The reference range was not used to interpret this result as normal/abnormal. GRAN MAT (NEUT) % (test code = 770-8) 61.7 % IMM GRAN % (test code = 7777331438) 0.80 % LYMPH % (test code = 736-9) 28.5 % MONO % (test code = 5905-5) 6.3 % EOS % (test code = 713-8) 1.8 % BASO % (test code = 706-2) 0.9 % GRAN MAT x10^3(ANC) (test code = 3701441179) 7.31 10*3/uL 1.88-7.09 H IMM GRAN x10^3 (test code = 8108996843) 0.09 10*3/uL 0.00-0.06 H LYMPH x10^3 (test code = 731-0) 3.38 10*3/uL 1.32-3.29 H MONO x10^3 (test code = 742-7) 0.75 10*3/uL 0.33-0.92 EOS x10^3 (test code = 711-2) 0.21 10*3/uL 0.03-0.39 BASO x10^3 (test code = 704-7) 0.11 10*3/uL 0.01-0.07 H Lab Interpretation (test code = 53734-2) [facility] NOW RAPID TESTING)2021-03-17 01:38:12* Test Item Value Reference Range Interpretation Comme nts SARS-CoV-2 Rapid ID NOW (test code = 20574-5) Not Detected Not Detected LYNDSAY (test code = LYNDSAY) ID NOW COVID-19 As say is an isothermal nucleic acid amplification test intended for the qualitative detection of nucleic acid from SARS-CoV-2 viral RNA in nasopharyngeal ([employer]) specimens. It is used under Emergency Use [...] clinically indicated. Lab Interpretation (test code = 70410-6) [facility] NOW RAPID TESTING)2021-03-17 01:38:12* Test Item Value Reference Range Interpretation Comme nts SARS-CoV-2 Rapid ID NOW (raisa t code = 43126-0) Not Detected Not Detected LYNDSAY (test code = LYNDSAY) Lab Interpretation (test cod e = 96968-6) Normal [facility]-19 (ID NOW RAPID TESTING)2021-02-19 17:42:45* Test Item Value Reference Range Interpretation Comme nts SARS-CoV-2 Rapid ID NOW (test code = 93066-3) Not Detected Not Detected LYNDSAY (test code = LYNDSAY) ID NOW COVID-19 As say is an isothermal nucleic acid amplification test intended for the qualitative detection of nucleic acid from SARS-CoV-2 viral RNA in nasopharyngeal ([employer]) specimens. It is used under Emergency Use [...] clinically indicated. Lab Interpretation (test code = 08984-6) Normal [facility] W [id number] 17:24:55Thickening of the gastric antrum and duodenal [...] CT ABDOMEN PELVIS W CONTRASTOrdering Physician: ANALI MONRYO CLINICAL HISTORY:Abdominal pain, acute, nonlocalized COMPARISON:11/21/2015TECHNIQUE:Helical CT [...] Electronicallysigned by James Freeman at 02/19/2021 12:24 [facility] BazdipGqbgfmmpdh1287-98-77 17:03:40* Test Item Value Reference Range Interpretation Comme nts APPEARANCE (test code = 3007565761) Hazy Clear A COLOR (test code = 6210489305) Mabel Yellow A PH (test code = 8237314057) 4.8-8.0 SP GRAVITY (test code = 9963480722) 1.003-1.030 H GLU U QUAL (test code = 7907036775) Normal Normal BLOOD (test code = 8391639822) Negative Negative KETONES (test code = 8955837220) 5 mg/dL Negative A PROTEIN (test code = 2887-8) 30 mg/dL Negative A UROBILIN (test code = 5952817181) 4.0 mg/dL Normal A BILIRUBIN (test code = 8029866483) 4 mg/dL Negative A NITRITE (test code = 5171813354) Negative Negative LEUK GRUPO (test code = 8174242080) Negative Negative RBC/HPF (test code = 8608200198) See_Comment H [Automated messa ge] The system which generated this result transmitted reference range: 0 - 3 HPF. The reference range was not used to interpret this result as normal/abnormal. WBC/HPF (test code = 6475745920) See_Comment H [Automated messa ge] The system which generated this result transmitted reference range: 0 - 5 HPF. The reference range was not used to interpret this result as normal/abnormal. BACTERIA (test code = 4510525574) Few Negative A MUCOUS (test code = 9914729558) Moderate Negative LPF A SQ EPITH (test code = 3859808130) HPF CA OXALATE (test code = 1513333479) See_Comment H [Automated messa ge] The system which generated this result transmitted reference range: <=1 HPF. The reference range was not used to interpret this result as normal/abnormal. Ictotest (test code = 0486920789) Negative Lab Interpretation (test code = 04295-5) [facility]normal [facility] HospitalComplete Metabolic Ddiyi4832-41-82 16:34:55* Test Item Value Reference Range Interpretation Comme nts NA (test code = 9326155334) 139 mmol/L 135-145 K (test code = 9363996207) 4.3 mmol/L 3.5-5.0 CL (test code = 4760348144) 105 mmol/L 98-108 CO2 TOTAL (test code = 7784767667) 26 mmol/L 23-31 AGAP (test code = 3216064314) 2-16 BUN (test code = 0013525996) 11 mg/dL 7-23 GLUCOSE (test code = 7003113517) 95 mg/dL 70-110 CREATININE (test code = 8247720952) 0.70 mg/dL 0.50-1.04 TOTAL BILI (test code = 9764480007) 0.6 mg/dL 0.1-1.1 CALCIUM (test code = 8408794907) 8.9 mg/dL 8.6-10.6 T PROTEIN (test code = 1944110546) 7.7 g/dL 6.3-8.2 ALBUMIN (test code = 4799974123) 4.1 g/dL 3.5-5.0 ALK PHOS (test code = 1940806139) 79 U/L 34-122 ALTv (test code = 1742-6) 10 U/L 5-35 AST(SGOT) (test code = 9480965480) 22 U/L 13-40 eGFR (test code = 5876099909) mL/min/1.73m2 LYNDSAY (test code = LYNDSAY) Association [...] or urine or abnormalities in imaging tests). [facility] HospitalLipase, Pbooq3774-92-23 16:34:14* Test Item Value Reference Range Interpretation Comme nts LIPASE (test code = 3668268045) 45 U/L 0-220 Lab Interpretation (test cod e = 58964-3) Normal [facility] HospitalCB with Pdlohitrtfnx6218-80-96 16:21:12* Test Item Value Reference Range Interpretation Comme nts WBC (test code = 6690-2) See_Comment [Automated [employer]] The system which generated this result transmitted [...] g/dL 31.6-35.1 L RDW-SD (test code = 85119-5) 54.4 fL 39.0-49.9 H RDW-CV (test code = 788-0) 18.3 % 12.0-15.5 H PLT (test code = 777-3) See_Comment H [Automated messa ge] The system which generated this result transmitted reference range: 166 - 358 10*3/?L. The reference range was not used to interpret this result as normal/abnormal. MPV (test code = 17303-4) 8.5 fL 9.5-12.9 L NRBC/100 WBC (test code = 1812995804) See_Comment [Automated [employer]age] The system which generated this result transmitted reference range: 0.0 - 10.0 /100 WBCs. The reference range was not used to interpret this result as normal/abnormal. NRBC x10^3 (test code = [id number]) <0.01 See_Comment [Automated messa ge] The system which generated this result transmitted reference range: 10*3/?L. The reference range was not used to interpret this result as normal/abnormal. GRAN MAT (NEUT) % (test code = 770-8) 78.3 % IMM GRAN % (test code = [id number]) 0.40 % LYMPH % (test code = 736-9) 15.4 % MONO % (test code = 5905-5) 4.8 % EOS % (test code = 713-8) 0.1 % BASO % (test code = 706-2) 1.0 % GRAN MAT x10^3(ANC) (test code = [id number]) 7.15 10*3/uL 1.88-7.09 H IMM GRAN x10^3 (test code = 5873349056) 0.04 10*3/uL 0.00-0.06 LYMPH x10^3 (test code = 731-0) 1.41 10*3/uL 1.32-3.29 MONO x10^3 (test code = 742-7) 0.44 10*3/uL 0.33-0.92 EOS x10^3 (test code = 711-2) <0.03 0.03-0.39 L BASO x10^3 (test code = 704-7) 0.09 10*3/uL 0.01-0.07 H Lab Interpretation (test code = 65291-7) Abnormal [facility]
[2023-07-27 13:58] LABS: Absolute Lymphocytes (CBC) 1.8 K/uL (0.7-4.9); Hematocrit 41.3 % (36.0-45.0); Lymphocytes % 22.5 % (15.3-44.8); MCV 88.3 fL (80-100); MPV 6.3 fL (7.6-11.3); Platelets 478 thou/uL (152-406); RBC Red Blood Cell Count 4.67 M/uL (3.86-4.86)
[2023-07-27 14:08] LABS: Protime INR 1.04
[2023-07-27 14:23] LABS: ALT/SGPT 18 U/L (13-56); AST/SGOT 11 U/L (15-37); Albumin 3.5 g/dL (3.4-5.0); Alkaline Phosphatase 107 U/L (45-117); BUN Blood Urea Nitrogen 9 mg/dL (7-18); Bicarbonate 27 mEq/L (21-32); Bilirubin Direct 0.1 mg/dL (0-0.2); Bilirubin Indirect, Calculated 0.2 mg/dL (0.2-0.8); Bilirubin Total 0.3 mg/dL (0.2-1.0); Glomerular Filtration Rate 87 ml/min (=/>90); Glucose Level 125 mg/dL (74-106); Magnesium 2.2 mg/dL (1.6-2.4); NT PRO-BNP 3153 pg/mL (<125); Potassium 3.8 mEq/L (3.5-5.1); Protein, Total 7.2 g/dL (6.4-8.2); Sodium Level 138 mEq/L (136-145); Troponin High Sensitivity 21.4 pg/mL (<58.9)
[2023-07-27 14:25] LABS: Valproic Acid (Depakene) Level < 3.0 mcg/mL (50.0-100.0)
--- NOTE | 2023-07-27 14:35 | RAD REPORT ---
EXAM DESCRIPTION: CT - Head Brain Wo Cont - 07/27/2023 1:56 pm CLINICAL HISTORY: seizure vs cva COMPARISON: Head Brain Wo Cont dated 03/29/2023; Head Brain Wo Cont dated 12/01/2022 TECHNIQUE: Noncontrast head CT images were obtained without IV contrast. Multiplanar reformats were generated and reviewed. All CT scans are performed using dose optimization technique as appropriate and may include automated exposure control or mA/KV adjustment according to patient size. FINDINGS: No intracranial hemorrhage, mass, or edema. Midline structures are unremarkable. Normal ventricular caliber for age. Morton-white matter differentiation is preserved, without evidence of acute infarct. No abnormal extra- axial fluid collections. Mastoid air cells are well aerated. Up to moderate mucosal thickening with some aerated secretions in the left maxillary sinus. No acute bony findings. IMPRESSION: No evidence of an acute intracranial process.
--- NOTE | 2023-07-27 15:07 | RAD REPORT ---
EXAM DESCRIPTION: RADChest Single View07/27/2023 2:07 pm CLINICAL HISTORY: CHEST PAIN COMPARISON: Chest Single View dated 06/21/2023; Chest Single View dated 05/15/2023; Chest Single View dated 05/03/2023; Chest Single View dated 03/29/2023 TECHNIQUE: Portable AP view of the chest. FINDINGS: The lungs are clear. No pneumothorax or effusion. The cardiomediastinal contours are unre markable. IMPRESSION: No acute cardiopulmonary process.
--- NOTE | 2023-07-27 17:12 | ER ---
Nurse's Notes [facility] Name: Heather Cono Age: 53 yrs Sex: Female : 1970 Arrival Date: 07/27/2023 Time: 13:27 Bed 14 Private MD: Diagnosis: Epileptic seizures related to external causes, not intractable, with status epilepticus;Chest pain, unspecified Presentation: 07/27 13:30 Chief complaint: EMS states: seizures. Patient had a seizure 40 minutes prior to cp4 arrival and had another on en route to the hospital. HX of seizures. 13:30 Coronavirus screen: Client denies travel out of the [place] in the last 14 days. At this cp4 time, the client does not indicate any symptoms associated with coronavirus-19. Ebola Screen: Patient negative for fever greater than or equal to 101.5 degrees Fahrenheit, and additional compatible Ebola Virus Disease symptoms Patient denies exposure to infectious person. Patient denies travel to an Ebola-affected area in the 21 days before illness onset. No symptoms or risks identified at this time. Initial Sepsis Screen: Does the patient meet any 2 criteria? RR > 20 per min. No. Patient's initial sepsis screen is negative. Does the patient have a suspected source of infection? No. Patient's initial sepsis screen is negative. Risk Assessment: Do you want to hurt yourself or someone else? Patient reports no desire to harm self or others. Onset of symptoms was July 27, 2023. 13:30 Method Of Arrival: EMS[facility] cp4 13:30 Acuity: ANDER 3 cp4 Triage Assessment: 13:30 General: Appears in no apparent distress. Behavior is calm, cooperative, appropriate cp4 for age. Pain: Complains of pain in chest. 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 - Social history:: Smoking status: Patient denies any tobacco usage or history of. Screenin:08 [facility] ED Fall Risk Assessment (Adult) History of falling in the last 3 months, cp4 including since admission No falls in past 3 months (0 pts) Confusion or Disorientation No (0 pts) Intoxicated or Sedated No (0 pts) Impaired Gait No (0 pts) Mobility Assist Device Used No (0 pt) Altered Elimination No (0 pt) Score/Fall Risk Level 0 - 2 = Low Risk Oriented to surroundings, Maintained a safe environment, Educated pt \T\ family on fall prevention, incl call for assistance when getting out of bed, Assessed \T\ reinforced patient's understanding of fall precautions, Provided non-skid footwear, Hourly rounding (assess needs \T\ fall precautionary measures) done. Abuse screen: Denies threats or abuse. Nutritional screening: No deficits noted. Tuberculosis screening: No symptoms or risk factors identified. Assessment: 14:08 General: Appears in no apparent distress. Behavior is calm, cooperative, appropriate cp4 for age. Vital Signs: 13:30 BP 138 / 84; Pulse 96; Resp 26; Temp 98.1; Pulse Ox 100% ; cp4 15:26 BP 122 / 78; Pulse 92; Resp 22; Pulse Ox 97% ; cp4 17:29 BP 107 / 71; Pulse 89; Resp 22; Pulse Ox 97% ; cp4 ED Course: 13:30 Arm band placed on right wrist. Patient placed in the treatment room, on a stretcher. cp4 13:31 Patient arrived in ED. sb4 13:32 Mariola Mahmood PA-C is PHCP. sb4 13:32 Norbert Fisher DO is Attending Physician. sb4 13:45 Mercedes Hernández is Primary Nurse. cp4 13:47 Basic Metabolic Panel Sent. cp4 13:47 CBC with Diff Sent. cp4 13:47 LFT's Sent. cp4 13:47 Magnesium Sent. cp4 13:47 NT PRO-BNP Sent. cp4 13:47 PT-INR Sent. cp4 13:47 Troponin HS Sent. cp4 13:58 Head Brain Wo Cont CT In Process Unspecified. EDMS 14:03 Triage completed. cp4 14:08 Bed in low position. Call light in reach. Side rails up X2. cp4 14:09 XRAY Chest (1 view) In Process Unspecified. EDMS 14:10 Inserted saline lock: 20 gauge in right wrist, using aseptic technique. Blood collected.cp4 17:29 No provider procedures requiring assistance completed. intact, bleeding controlled, No cp4 redness/swelling at site. Pressure dressing applied. 17:29 Provided Education on: epilepsy. cp4 Administered Medications: 14:24 Drug: Valproic Acid PO 250 mg PO once Route: PO; cp4 17:31 Follow up: Response: No adverse reaction cp4 14:24 Drug: morphine IVP or IV 4 mg IVP once over 4 mins Route: IVP; Infused Over: 4 mins; cp4 Site: right wrist; 17:31 Follow up: Response: No adverse reaction cp4 14:24 Drug: Ondansetron IVP 4 mg IVP once; over 2 minutes Route: IVP; Site: right wrist; cp4 17:31 Follow up: Response: No adverse reaction cp4 17:02 Drug: morphine IVP or IV 4 mg IVP once over 4 mins Route: IVP; Infused Over: 4 mins; cp4 Site: right hand; 17:31 Follow up: Response: No adverse reaction cp4 17:02 Drug: DuoNeb Nebulize (3:1) (2.5 mg - 0.5 mg) 3 ml Nebulizer once Route: Nebulizer; cp4 17:31 Follow up: Response: No adverse reaction cp4 Medication: 14:08 VIS not applicable for this client. cp4 Outcome: 17:11 Discharge ordered by . sb4 17:29 Discharged to home ambulatory, cp4 17:29 Condition: stable 17:29 Discharge instructions given to patient, Instructed on discharge instructions, follow up and referral plans. medication usage, Demonstrated understanding of instructions, follow-up care, medications, Prescriptions given X 1, 17:32 Patient left the ED. cp4 Signatures: Dispatcher [employer] EDMariola Osei PA-C PA-C sb4 Mercedes Hernández cp4
--- NOTE | 2023-07-27 17:12 | EDPHYS ---
Physician Documentation [facility] Name: Heather Coon Age: 53 yrs Sex: Female : 1970 Arrival Date: 07/27/2023 Time: 13:27 Bed 14 Private MD: ED Physician Norbert Fisher HPI: 07/27 13:45 This 53 yrs old Female presents to ER via Unassigned with complaints of seizure, chest sb4 pain. 13:45 The patient presents with a history of multiple seizures, a total of 2, that last 2 sb4 minute(s), the episode(s) was witnessed, by EMS personnel, by family. Character of seizure(s): Loss of consciousness: the patient experienced loss of consciousness, Motor activity: generalized, focal activity, Incontinence: none, Apnea: the patient did not experience apnea, Circulation: the patient did not experience evidence of pulse disturbance. Seizure onset: this morning. Seizure Hx: Last seizure: The patient's last seizure was approximately 2 month(s) ago, Usual frequency: roughly every 2 month(s), Seizure medications: valproic acid. Associated injury: The patient did not suffer any apparent associated injury. EMS care: Ativan, 4 mg(s), IM, with resolution of the seizure. Current symptoms: paralysis or paresis, of the right cheek, chest pain. The patient has experienced similar episodes in the past. patient with history of psuedoseizures on depakote presents after 2 seziures today. now is complaining of crushing chest pain. has not taken her depakote in 1 week. states her seizures are stress and pain induced - is experiencing both. 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 - Social history:: Smoking status: Patient denies any tobacco usage or history of. ROS: 13:45 Constitutional: Negative for fever, chills, and weight loss, sb4 13:45 Cardiovascular: Positive for chest pain, 13:45 Respiratory: Positive for shortness of breath, 13:45 Neuro: Positive for seizure activity, 13:45 All other systems are negative, Exam: 13:45 Constitutional: This is a well developed, well nourished patient who is awake, alert, sb4 and in no acute distress. Head/Face: Normocephalic, atraumatic. Eyes: Extra-ocular motions intact. Periorbital areas with no swelling, redness, or edema. ENT: Mucous membranes moist. Abdomen/GI: Soft, non-tender, no distension. Skin: Warm, dry with normal turgor. Normal color with no rashes, no lesions, and no evidence of cellulitis. MS/ Extremity: Pulses equal, no cyanosis. Neurovascular intact. Full, normal range of motion. 13:45 Cardiovascular: Rate: tachycardic, Rhythm: regular, Pulses: no pulse deficits are appreciated, 13:45 Respiratory: the patient does not display signs of respiratory distress, Respirations: normal, Breath sounds: bronchial sounds, rhonchi, are scattered, 13:45 Neuro: Sensation: tingling, that is moderate, of the right cheek, Vital Signs: 13:30 BP 138 / 84; Pulse 96; Resp 26; Temp 98.1; Pulse Ox 100% ; cp4 15:26 BP 122 / 78; Pulse 92; Resp 22; Pulse Ox 97% ; cp4 17:29 BP 107 / 71; Pulse 89; Resp 22; Pulse Ox 97% ; cp4 MDM: 13:32 Patient medically screened. sb4 13:45 Differential diagnosis: cerebral vascular accident, cardiac arrhythmia, seizure, TIA, sb4 ACS, pseudoseizure. 17:11 Data reviewed: vital signs, nurses notes, EMS record, lab test result(s), EKG, sb4 radiologic studies, I have discussed the patient's presentation/case with the attending Emergency Department Physician; and as a result, I will discharge patient. Consideration of Admission/Observation Escalation of care including admission/observation considered. Counseling: I had a detailed discussion with the patient and/or guardian regarding the historical points, exam findings, and any diagnostic results supporting the discharge/admit diagnosis, the presence of at least one elevated blood pressure reading (>120/80) during this emergency department visit, lab results, radiology results, to return to the emergency department if symptoms worsen or persist or if there are any questions or concerns that arise at home. 07/27 13:40 Order name: Basic Metabolic Panel; Complete Time: 14:30 sb4 07/27 13:40 Order name: CBC with Diff; Complete Time: 14:06 sb4 07/27 13:40 Order name: LFT's; Complete Time: 14:30 sb4 07/27 13:40 Order name: Magnesium; Complete Time: 14:30 sb4 07/27 13:40 Order name: NT PRO-BNP; Complete Time: 14:30 sb4 07/27 13:40 Order name: PT-INR; Complete Time: 14:09 sb4 07/27 13:40 Order name: Troponin HS; Complete Time: 14:30 sb4 07/27 13:40 Order name: Depakote; Complete Time: 14:30 sb4 07/27 15:27 Order name: Troponin High Sensitivity; Complete Time: 16:25 sb4 07/27 13:40 Order name: XRAY Chest (1 view); Complete Time: 15:09 sb4 07/27 13:40 Order name: Head Brain Wo Cont CT; Complete Time: 14:37 sb4 07/27 13:40 Order name: EKG; Complete Time: 13:40 sb4 07/27 13:40 Order name: Cardiac monitoring; Complete Time: 13:47 sb4 07/27 13:40 Order name: EKG - Nurse/Tech; Complete Time: 13:47 sb4 07/27 13:40 Order name: IV Saline Lock; Complete Time: 13:47 sb4 07/27 13:40 Order name: Labs collected and sent; Complete Time: 13:47 sb4 07/27 13:40 Order name: O2 Per Protocol; Complete Time: 13:47 sb4 07/27 13:40 Order name: O2 Sat Monitoring; Complete Time: 13:47 sb4 EC:49 Rate is 97 beats/min. Rhythm is regular, Normal Sinus Rhythm. Right axis deviation sb4 noted. WI interval is normal at 132 msec. QRS interval is normal at 86 msec. QT interval is normal at 380 msec. No Q waves. T waves are Normal. No ST changes noted. Clinical impression: No evidence of ischemia and right atrial enlargement. Interpreted by me. Reviewed by me. Administered Medications: 14:24 Drug: Valproic Acid PO 250 mg PO once Route: PO; cp4 17:31 Follow up: Response: No adverse reaction cp4 14:24 Drug: morphine IVP or IV 4 mg IVP once over 4 mins Route: IVP; Infused Over: 4 mins; cp4 Site: right wrist; 17:31 Follow up: Response: No adverse reaction cp4 14:24 Drug: Ondansetron IVP 4 mg IVP once; over 2 minutes Route: IVP; Site: right wrist; cp4 17:31 Follow up: Response: No adverse reaction cp4 17:02 Drug: morphine IVP or IV 4 mg IVP once over 4 mins Route: IVP; Infused Over: 4 mins; cp4 Site: right hand; 17:31 Follow up: Response: No adverse reaction cp4 17:02 Drug: DuoNeb Nebulize (3:1) (2.5 mg - 0.5 mg) 3 ml Nebulizer once Route: Nebulizer; cp4 17:31 Follow up: Response: No adverse reaction cp4 Disposition: 18:42 I was immediately available on-site in the Emergency Department for consultation in the ms3 care of the patient. Disposition Summary: 07/27/23 17:11 Discharge Ordered Notes: Location: Home sb4 Problem: new sb4 Symptoms: have improved sb4 Condition: Stable sb4 Diagnosis - Epileptic seizures related to external causes, not intractable, with status sb4 epilepticus - Chest pain, unspecified sb4 Followup: sb4 - With: Emergency Department - When: As needed - Reason: Trouble breathing, Worsening of condition Discharge Instructions: - Discharge Summary Sheet sb4 - Nonspecific Chest Pain, Adult, [id number] sb4 - Epilepsy, [id number] sb4 Forms: - Medication Reconciliation Form sb4 - Thank You Letter sb4 - Antibiotic Education sb4 - Prescription Opioid Use sb4 - Patient Portal Instructions sb4 - Leadership Thank You Letter sb4 Prescriptions: - Depakote 250 mg Oral Tablet - take 1 tablet ORAL route every 12 hours; 60 tablet; Refills: 0, Product sb4 Selection Permitted Signatures: Dispatcher [employer] EDNorbert Kern DO DO ms3 Mariola Mahmood PA-C PA-C sb4 Mercedes Hernández cp4
[2023-07-27 19:30] VITALS: BP 107/71; TEMP 98.1; O2SAT 97
--- NOTE | 2023-07-28 17:12 | EKG ---
Test Date: 2023-07-27 Test Time: 13:41:05 Landscape Manager: MIA MEASUREMENT RESULTS: Intervals: Rate: 97 CA: 132 QRSD: 86 QT: 380 QTc: 482 Mims: P: 60 CA: 132 QRS: 91 T: 39 INTERPRETIVE STATEMENTS: Normal sinus rhythm Right atrial enlargement Rightward axis Borderline ECG Compared to ECG 07/13/2023 15:40:04 Sinus tachycardia no longer present Electronically Signed On 07-28-23 17:10:30 SUPERINTENDENT DRILLING by Saad Leavitt
== END ==
LOC: ER 13:27
DX: G40.501 Epileptic seizures related to external causes, not intractable, with status epilepticus (principal); R07.9 Chest pain, unspecified; J44.9 Chronic obstructive pulmonary disease, unspecified; I11.0 Hypertensive heart disease with heart failure; I50.9 Heart failure, unspecified; F41.9 Anxiety disorder, unspecified; F32.A Depression, unspecified; F31.9 Bipolar disorder, unspecified
CPT/HCPCS: 36415; 70450; 71045; 80048; 80076; 80164; 83735; 83880; 84484; 85025; 85610; 93005; 94640; 99285; J2405; J7613; J7644

== ENCOUNTER → 2023-07-31 | Emergency (ER) | payer SELFPAY ==
[~2023-07-31] MED LIST changes: -ALBUTEROL 2.5 MG/3 ML NEB SOL ONE; +CIPROFLOXACIN 400mg IV 400 MG/200 ML BAG IV ONE; -DIVALPROEX DR 250 MG TAB PO ONE; +HYDROMORPHONE HCL 1 MG/ML INJ ONE; -IPRATROPIUM BROM 0.5MG/2.5ML ONE; +METRONIDAZOLE 500mg IVPB 500 MG/100 ML BAG IV ONE; -MORPHINE 4 MG/ML SYR ONE; +NA CHLORIDE 0.9% 1,000 ML ONE
--- OUTSIDE RECORDS SUMMARY | 2023-07-31 14:01 | XMS REPORT | Continuity of Care Document ---
Author Name Unknown Address [address] [facility]. [address] [place] [address] [facility] thconnect Address [address] [facility] [address] [place] [address] Care Team Providers Care Carpentry Teacher Name Role Phone Myacaro Aneta SUAREZ Primary Care Physician AYDEE GO Attending Clinician Unavailable CARA BURGESS Attending Clinician Unavailab ADAM Cabrera Attending Clinician Unavailable THOMAS LOZOYA Attending Clinician Nina MARIAH Quiroga Attending Clinician Unavailable Cara Burgess MD Attending Clinician [phone] Aydee Go MD Attending Clinician [phone] System, Provider Not In Attending Clinician Unav paulable Dallas Gomez Attending Clinician UnavailAdam Vasques MD Attending Clinician [phone] Harry Newsome MD Attending Clinician Rocael ELIZONDO, Antwon Mccrary Attending Clinician [phone] Yue Bui MD Attending Clinician [phone] Tamica ELIZONDO, Connie Antonio Attending Clinician [phone] Jasen ELIZONDO, Mariah Attending Clinician [phone] Valerio ELIZONDO, Thomas Hopkins Attending Clinician CONNIE DAVEY Attending Clinician Unavailabl Alfonso Ruiz Attending Clinician Unavailable Alfonso Lopez Attending Clinician [phone] RITCHIE WARREN Attending Clinician Unavailable Briana ELIZONDO, Ritchie Stoner Attending Clinician [phone] Rk CAMPOS, Shy Stoner Attending Clinician [phone] Reji ELIZONDO, Halima Hummel Attending Clinician [phone] Lucho ELIZONDO, Jen Olivia Attending Clinician [phone] Roxi ELIZONDO, Parrish Reyez Attending Clinici an PARRISH WHEATLEY Attending Clinician Unavaila LORENZA Mariscal Attending Clinician Unavailable Sav Rondon MD Attending Clinician [phone] Lorenza Lowry MD Attending Clinician [phone] Maria Teresa Nicole LVN Attending Clinician [phone] CHANTEL BOJORQUEZ Attending Clinician CHANTEL Kelly Attending Clinician Jack Ibrahim MD, Brandyn Otoole Attending Clinician [phone] SELINA MARTINES Attending Clinician Unavailable Sapna Vargas DO Attending Clinician [phone] Tyrel ELIZONDO, Glory Katz Attending Clinician + Selina Martines MD Attending Clinician [phone] Chung Graham Attending Clinician U chelsi Pak MD, Jose Attending Clinician [phone] JOSE PAK Attending Clinician Unavailable NICHELLE VIRK Attending Clinician Unavaila ble Nichelle Bishop Attending Clinician [phone] Doctor Unassigned, [place] Attending Clinician U chelsi Nava RN, Miky Attending Clinician Unavailab monroe SUAREZ, Blackberyl Attending Clinician [phone] Deo [employer] WINDOWS ENGINEER, Lydia Attending Clinician [phone] Unknown, Attending Attending Clinician Unavailab le UNKNOWN, ATTENDING Attending Clinician Unavailab Anali Berg Attending Clinician [phone] Yehuda Arcos MD Attending Clinician [phone] CARA BURGESS Admitting Clinician Unavailab ADAM Cabrera Admitting Clinician Unavailable MARIAH ALDRIDGE Admitting Clinician Unavailable CONNIE DAVEY Admitting Clinician UnavailAlfonso Oh Admitting Clinician Unavailable RITCHIE WARREN Admitting Clinician Unavailable JEN GELLER Admitting Clinician Unavaila LORENZA Mariscal Admitting Clinician Unavailable Lorenza Lowry MD Admitting Clinician [phone] BRANDYN IBRAHIM Admitting Clinician Unavailable Brandyn Ibrahim MD Admitting Clinician [phone] GLORY ESTEVES Admitting Clinician UnaNICHELLE Archuleta Admitting Clinician Unavaila yaya Payers Payer Name Policy Type Policy Number Effective Date Expirati on Date Source ANTONIATerry [id number] 2023 00:00:00 MEDICAID PENDING PENDING 2022 00:00:00 Problems Condition Name Condition Details Condition Category Status Onset Date Resolution Date Last Treatment Date Treating Clinician Comments Source Bilateral leg weakness Bilateral leg weakness Disease Active 2022-07 00:00: 00 [facility] Pneumonia Pneumonia Disease Active 2022-07 00:00: 00 [facility] Cavitary lesion of lung Cavitary lesion of lung Disease Active 2022-07 00:00: 00 [facility] Cervical myelopathy Cervical myelopathy Disease Recurre nce 2022-07 00:00: 00 [facility] Cervical disc disorder with myelopathy , high cervical region Cervical disc disorder with myelopathy , high cervical region Disease Active 2022-07 1-09 00:00: 00 [facility] Cord compressio n Cord compressio n Disease Recurre nce 0 9-11 00:00: 00 [facility] Cauda equina compressio n Cauda equina compressio n Disease Recurre nce 0 9-11 00:00: 00 [facility] Seizure Seizure Disease Recurre ohe 1-14 00:00: 00 [facility] Cardiomyop athy Cardiomyop athy Disease Active 08-01 00:00: 00 [facility] NSVT (nonsustai keisha ventricula r tachycardi a) NSVT (nonsustai keisha ventricula r tachycardi a) Disease Active 08-01 00:00: 00 [facility] Chest pain, unspecifie d type Chest pain, unspecifie d type Disease Active 07-31 00:00: 00 [facility] Elevated brain natriureti c peptide (BNP) level Elevated brain natriureti c peptide (BNP) level Disease Active 07-31 00:00: 00 [facility] Coronary artery disease involving [place] coronary artery of [place] heart without angina pectoris Coronary artery disease involving [place] coronary artery of [place] heart without angina pectoris Disease Active 07-31 00:00: 00 [facility] Snores Snores Disease Active 07-31 00:00: 00 [facility] Cigarette smoker Cigarette smoker Disease Active 07-31 00:00: 00 [facility] Primary hypertensi on Primary hypertensi on Disease Active 07-31 00:00: 00 [facility] Other hyperlipid emia Other hyperlipid emia Disease Active 07-31 00:00: 00 [facility] Coronary artery disease involving [place] coronary artery of [place] heart without angina pectoris Coronary artery disease involving [place] coronary artery of [place] heart without angina pectoris Disease Active 07-31 00:00: 00 [facility] Chronic bilateral low back pain with bilateral sciatica Chronic bilateral low back pain with bilateral sciatica Disease Active 2021-07 0-17 00:00: 00 [facility] 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 Disease Active 04-15 00:00: 00 [facility] Neuroforam inal stenosis of cervical spine Neuroforam inal stenosis of cervical spine Disease Active 04-15 00:00: 00 [facility] Stroke-lik e symptoms Stroke-lik e symptoms Disease Active 04-13 00:00: 00 [facility] Bipolar disorder, in partial remission, most recent episode manic Bipolar disorder, in partial remission, most recent episode manic Disease Active 09-27 00:00: 00 [facility] Neuroforam inal stenosis of lumbar spine Neuroforam inal stenosis of lumbar spine Disease Active 09-27 00:00: 00 [facility] Bilateral acute otitis media, recurrence not specified, unspecifie d otitis media type Bilateral acute otitis media, recurrence not specified, unspecifie d otitis media type Disease Active 09-27 00:00: 00 [facility] Lumbar spinal stenosis Lumbar spinal stenosis Disease Active 09-27 00:00: 00 [facility] Right-side d low back pain with sciatica, sciatica laterality unspecifie d Right-side d low back pain with sciatica, sciatica laterality unspecifie d Disease Active 09-27 00:00: 00 [facility] Generalize d anxiety disorder Generalize d anxiety disorder Disease Active 09-27 00:00: 00 [facility] Agoraphobi a Agoraphobi a Disease Active 09-27 00:00: 00 [facility] Bipolar disorder, in partial remission, most recent episode manic Bipolar disorder, in partial remission, most recent episode manic Disease Active 09-27 00:00: 00 [facility] Obsessive compulsive disorder Obsessive compulsive disorder Disease Active 09-27 00:00: 00 [facility] Breast mass, left Breast mass, left Disease Active 09-17 00:00: 00 [facility] Anxiety Anxiety Disease Active 09-17 00:00: 00 [facility] Lower back pain Lower back pain Disease Active 09-17 00:00: 00 [facility] High blood pressure High blood pressure Disease Active 09-17 00:00: 00 [facility] COPD (chronic obstructiv e pulmonary disease) COPD (chronic obstructiv e pulmonary disease) Disease Active 09-17 00:00: 00 [facility] Obesity Obesity Disease Active 09-17 00:00: 00 [facility] Allergies, Adverse Reactions, Alerts Allergy Name Allergy Type Status Severity Reaction(s) Onset Date Inactive Date Treating Clinician Comments Source Fluoxeti ne Propensi ty to adverse reaction s Active 03-29 00:00: 00 [facility] Green Tea Drug Allergy Active Other (See Comments) 03-29 00:00: 00 Seizure like activity [facility] Levetira cetam Drug Allergy Active Nausea And Vomiting 03-29 00:00: 00 Intensifi es seizure [facility] FLUOXETI NE Allergy Active 03-29 00:00: 00 [facility] GREEN TEA Allergy Active High Other 03-29 00:00: 00 [facility] LEVETIRA CETAM Allergy Active High N\\T\\V - 00:00: 00 [facility] Green Tea Propensi ty to adverse reaction s Active 03-29 00:00: 00 Seizure like activity [facility] Levetira cetam Propensi ty to adverse reaction s Active Nausea And Vomiting 03-29 00:00: 00 Intensifi es seizure [facility] LEVETIRA CETAM DRUG INGREDI Active Other-Cmnt 11-17 00:00: 00 [facility] Levetira cetam Propensi ty to adverse reaction s Active Other - See comments 11-17 00:00: 00 Makes seizures worse [facility] FLUOXETI NE Allergy Active Med Rash 08-02 00:00: 00 [facility] Fluoxeti ne Propensi ty to adverse reaction s Active Rash 08-02 00:00: 00 [facility] Green Tea Propensi ty to adverse reaction s Active 08-02 00:00: 00 [facility] GREEN TEA Allergy Active 08-02 00:00: 00 [facility] Fluoxeti ne Propensi ty to adverse reaction s Active Unknown - See comments 03-25 00:00: 00 [facility] FLUOXETI NE DRUG INGREDI Active Unknown-Cmnt 03-25 00:00: 00 [facility] DICLOFEN AC DRUG INGREDI Active HYPERTENSION 11-20 00:00: 00 [facility] Diclofen ac Propensi ty to adverse reaction s Active Hypertension 11-20 00:00: 00 [facility] GREEN TEA DRUG INGREDI Active Med Other-Cmnt 08-10 00:00: 00 [facility] Green Tea Propensi ty to adverse reaction s to drug Active Other - See comments 08-10 00:00: 00 Seizures [facility] FLUOXETI NE HCL DRUG INGREDI Active Hives 03-19 00:00: 00 [facility] Fluoxeti ne Hcl Propensi ty to adverse reaction s Active Hives 03-19 00:00: 00 [facility] Family History Family Member Diagnosis Comments Start Date Stop Date Sourc e Natural mother Alcohol abuse C [facility] Natural mother Cancer [facility] Natural mother Diabetes [facility] Natural mother Heart disease C [facility] Natural mother Hyperlipidemia [facility] Natural mother Kidney disease [facility] Natural mother Stroke [facility] Natural mother Alcohol abuse [facility] Natural mother Stroke [facility] Paternal uncle Diabetes [facility] Social History Social Habit Start Date Stop Date Quantity Comments Source History SDOH Alcohol Frequency [facility] History SDOH Alcohol Std Drinks [facility] History SDOH Alcohol Binge [facility] History SDOH Housing Homeless Last Year [facility] History SDOH Social Connections Get Together [facility] History SDOH Social Connections [facility] Connections Membership [facility] History SDOH Social Connections Meetings [facility] Sexual orientation C [facility] Alcohol intake 2023-06-02 00:00:00 2023-06-02 00:00:00 Current drinker of alcohol (finding) [facility] History of Social function 2023-06-02 00:00:00 2023-06-02 00:00:00 [facility] Exposure to SARS-CoV-2 (event) 2023-05-18 00:00:00 2023-05-28 07:28:00 Not sure [facility] History SDOH Housing Unable to Pay - In the last 12 months, was there a time when you were not able to pay the mortgage or rent on time? 2023-05-26 00:00:00 2023-05-26 00:00:00 Yes [facility] Cigarettes smoked current (pack per day) - Reported 2023-05-26 00:00:00 2023-05-26 00:00:00 [facility] Cigarette pack-years 2023-05-26 00:00:00 2023-05-26 00:00:00 [facility] Tobacco use and exposure 2023-05-26 00:00:00 2023-05-26 00:00:00 Smokeless tobacco non-user [facility] History of tobacco use 1987-05-22 00:00:00 2023-05-22 00:00:00 Cigarette Smoker [facility] History SDOH Housing Places Lived 2023-03-30 00:00:00 2023-03-30 00:00:00 1 [facility] Alcohol Comment 2023-03-29 00:00:00 2023-03-29 00:00:00 2x a week [facility] History SDOH Social Connections Phone 2022-08-01 00:00:00 2022-08-01 00:00:00 5 [facility] History SDOH Social Connections Living 2022-08-01 00:00:00 2022-08-01 00:00:00 5 [facility] History SDOH Physical Activity DPW 2022-08-01 00:00:00 2022-08-01 00:00:00 0 [facility] History SDOH Physical Activity MPS 2022-08-01 00:00:00 2022-08-01 00:00:00 0 [facility] History SDOH Financial 2022-08-01 00:00:00 2022-08-01 00:00:00 3 [facility] History SDOH Food Worry 2022-08-01 00:00:00 2022-08-01 00:00:00 1 [facility] History SDOH Food Scarcity 2022-08-01 00:00:00 2022-08-01 00:00:00 1 [facility] History SDOH Transport Med 2022-08-01 00:00:00 2022-08-01 00:00:00 2 [facility] History SDOH Transport Non-Med 2022-08-01 00:00:00 2022-08-01 00:00:00 2 [facility] Education 2022-07-31 00:00:00 2022-07-31 00:00:00 14 [facility] Sex Assigned At 1970 00:00:00 1970 00:00:00 [facility] Smoking Status Start Date Stop Date Source Ex-smoker 2023-05-26 00:00:00 2023-05-26 00:00:00 [facility] Smokes tobacco daily 2023-03-29 00:00:00 [facility] Medications Ordered Medication Name Filled Medication Name Start Date Stop Date Current Medication? Ordering Clinician Indication Dosage Frequency Signature (SIG) Comments Components Source tamsulosin (FLOMAX) 0.4 mg Cap 24 hr capsule 2022-07 00:00: 00 06-22 23:59 :00 No .4mg QD Take 1 capsule (0.4 mg total) by mouth daily for 5 days. [facility] tamsulosin (FLOMAX) 0.4 mg Cap 24 hr capsule 2022-07 00:00: 00 06-22 23:59 :00 No .4mg QD Take 1 capsule (0.4 mg total) by mouth daily for 5 days. [facility] tamsulosin (FLOMAX) 0.4 mg Cap 24 hr capsule 2022-07 00:00: 00 06-22 23:59 :00 No .4mg QD Take 1 capsule (0.4 mg total) by mouth daily for 5 days. [facility] tamsulosin (FLOMAX) 0.4 mg Cap 24 hr capsule 2022-07 00:00: 00 06-22 23:59 :00 No .4mg QD Take 1 capsule (0.4 mg total) by mouth daily for 5 days. [facility] tamsulosin (FLOMAX) 0.4 mg Cap 24 hr capsule 2022-07 00:00: 00 06-22 23:59 :00 No .4mg QD Take 1 capsule (0.4 mg total) by mouth daily for 5 days. [facility] tamsulosin (FLOMAX) 0.4 mg Cap 24 hr capsule 2022-07 00:00: 00 06-22 23:59 :00 No .4mg QD Take 1 capsule (0.4 mg total) by mouth daily for 5 days. [facility] tamsulosin (FLOMAX) 0.4 mg Cap 24 hr capsule 2022-07 00:00: 00 06-22 23:59 :00 No .4mg QD Take 1 capsule (0.4 mg total) by mouth daily for 5 days. [facility] tamsulosin (FLOMAX) 0.4 mg Cap 24 hr capsule 2022-07 00:00: 00 06-22 23:59 :00 Yes .4mg QD Take 1 capsule (0.4 mg total) by mouth daily for 5 days. [facility] tamsulosin (FLOMAX) 0.4 mg Cap 24 hr capsule 2022-07 00:00: 00 06-22 23:59 :00 Yes .4mg QD Take 1 capsule (0.4 mg total) by mouth daily for 5 days. [facility] metoprolol succinate (TOPROL-XL) 25 MG 24 hr tablet 2022-07 19:45: 32 Yes 25mg QD Take 1 tablet (25 mg total) by mouth daily. [facility] varenicline (CHANTIX) 1 mg tablet 2022-07 19:45: 32 Yes 1mg Q.5D Take 1 tablet (1 mg total) by mouth 2 (two) times daily Give with meals and with a full glass of water.. [facility] albuterol HFA (VENTOLIN HFA) 90 mcg/actuati on inhaler 2022-07 19:45: 32 Yes 1{puff} Inhale 1 puff by mouth via inhaler every 6 (six) hours as needed for Wheezing. [facility] fluticasone -umeclidin- vilanter (Trelegy Ellipta) 200-62.5-25 mcg DsDv 2022-07 19:45: 32 Yes QD Inhale by mouth via inhaler daily. [facility] atorvastati n (LIPITOR) 20 MG tablet 2022-07 19:45: 32 Yes 20mg QD Take 1 tablet (20 mg total) by mouth daily. [facility] metoprolol succinate (TOPROL-XL) 25 MG 24 hr tablet 2022-07 19:45: 32 Yes 25mg QD Take 1 tablet (25 mg total) by mouth daily. [facility] varenicline (CHANTIX) 1 mg tablet 2022-07 19:45: 32 Yes 1mg Q.5D Take 1 tablet (1 mg total) by mouth 2 (two) times daily Give with meals and with a full glass of water.. [facility] albuterol HFA (VENTOLIN HFA) 90 mcg/actuati on inhaler 2022-07 19:45: 32 Yes 1{puff} Inhale 1 puff by mouth via inhaler every 6 (six) hours as needed for Wheezing. [facility] fluticasone -umeclidin- vilanter (Trelegy Ellipta) 200-62.5-25 mcg DsDv 2022-07 19:45: 32 Yes QD Inhale by mouth via inhaler daily. [facility] atorvastati n (LIPITOR) 20 MG tablet 2022-07 19:45: 32 Yes 20mg QD Take 1 tablet (20 mg total) by mouth daily. [facility] metoprolol succinate (TOPROL-XL) 25 MG 24 hr tablet 2022-07 19:45: 32 Yes 25mg QD Take 1 tablet (25 mg total) by mouth daily. [facility] varenicline (CHANTIX) 1 mg tablet 2022-07 19:45: 32 Yes 1mg Q.5D Take 1 tablet (1 mg total) by mouth 2 (two) times daily Give with meals and with a full glass of water.. [facility] albuterol HFA (VENTOLIN HFA) 90 mcg/actuati on inhaler 2022-07 19:45: 32 Yes 1{puff} Inhale 1 puff by mouth via inhaler every 6 (six) hours as needed for Wheezing. [facility] fluticasone -umeclidin- vilanter (Trelegy Ellipta) 200-62.5-25 mcg DsDv 2022-07 19:45: 32 Yes QD Inhale by mouth via inhaler daily. [facility] atorvastati n (LIPITOR) 20 MG tablet 2022-07 19:45: 32 Yes 20mg QD Take 1 tablet (20 mg total) by mouth daily. [facility] metoprolol succinate (TOPROL-XL) 25 MG 24 hr tablet 2022-07 19:45: 32 Yes 25mg QD Take 1 tablet (25 mg total) by mouth daily. [facility] varenicline (CHANTIX) 1 mg tablet 2022-07 19:45: 32 Yes 1mg Q.5D Take 1 tablet (1 mg total) by mouth 2 (two) times daily Give with meals and with a full glass of water.. [facility] albuterol HFA (VENTOLIN HFA) 90 mcg/actuati on inhaler 2022-07 19:45: 32 Yes 1{puff} Inhale 1 puff by mouth via inhaler every 6 (six) hours as needed for Wheezing. [facility] fluticasone -umeclidin- vilanter (Trelegy Ellipta) 200-62.5-25 mcg DsDv 2022-07 19:45: 32 Yes QD Inhale by mouth via inhaler daily. [facility] atorvastati n (LIPITOR) 20 MG tablet 2022-07 19:45: 32 Yes 20mg QD Take 1 tablet (20 mg total) by mouth daily. [facility] metoprolol succinate (TOPROL-XL) 25 MG 24 hr tablet 2022-07 19:45: 32 Yes 25mg QD Take 1 tablet (25 mg total) by mouth daily. [facility] varenicline (CHANTIX) 1 mg tablet 2022-07 19:45: 32 Yes 1mg Q.5D Take 1 tablet (1 mg total) by mouth 2 (two) times daily Give with meals and with a full glass of water.. [facility] albuterol HFA (VENTOLIN HFA) 90 mcg/actuati on inhaler 2022-07 19:45: 32 Yes 1{puff} Inhale 1 puff by mouth via inhaler every 6 (six) hours as needed for Wheezing. [facility] fluticasone -umeclidin- vilanter (Trelegy Ellipta) 200-62.5-25 mcg DsDv 2022-07 19:45: 32 Yes QD Inhale by mouth via inhaler daily. [facility] atorvastati n (LIPITOR) 20 MG tablet 2022-07 19:45: 32 Yes 20mg QD Take 1 tablet (20 mg total) by mouth daily. [facility] metoprolol succinate (TOPROL-XL) 25 MG 24 hr tablet 2022-07 19:45: 32 Yes 25mg QD Take 1 tablet (25 mg total) by mouth daily. [facility] varenicline (CHANTIX) 1 mg tablet 2022-07 19:45: 32 Yes 1mg Q.5D Take 1 tablet (1 mg total) by mouth 2 (two) times daily Give with meals and with a full glass of water.. [facility] albuterol HFA (VENTOLIN HFA) 90 mcg/actuati on inhaler 2022-07 19:45: 32 Yes 1{puff} Inhale 1 puff by mouth via inhaler every 6 (six) hours as needed for Wheezing. [facility] fluticasone -umeclidin- vilanter (Trelegy Ellipta) 200-62.5-25 mcg DsDv 2022-07 19:45: 32 Yes QD Inhale by mouth via inhaler daily. [facility] atorvastati n (LIPITOR) 20 MG tablet 2022-07 19:45: 32 Yes 20mg QD Take 1 tablet (20 mg total) by mouth daily. [facility] metoprolol succinate (TOPROL-XL) 25 MG 24 hr tablet 2022-07 19:45: 32 Yes 25mg QD Take 1 tablet (25 mg total) by mouth daily. [facility] varenicline (CHANTIX) 1 mg tablet 2022-07 19:45: 32 Yes 1mg Q.5D Take 1 tablet (1 mg total) by mouth 2 (two) times daily Give with meals and with a full glass of water.. [facility] albuterol HFA (VENTOLIN HFA) 90 mcg/actuati on inhaler 2022-07 19:45: 32 Yes 1{puff} Inhale 1 puff by mouth via inhaler every 6 (six) hours as needed for Wheezing. [facility] fluticasone -umeclidin- vilanter (Trelegy Ellipta) 200-62.5-25 mcg DsDv 2022-07 19:45: 32 Yes QD Inhale by mouth via inhaler daily. [facility] atorvastati n (LIPITOR) 20 MG tablet 2022-07 19:45: 32 Yes 20mg QD Take 1 tablet (20 mg total) by mouth daily. [facility] metoprolol succinate (TOPROL-XL) 25 MG 24 hr tablet 2022-07 19:45: 32 Yes 25mg QD Take 1 tablet (25 mg total) by mouth daily. [facility] varenicline (CHANTIX) 1 mg tablet 2022-07 19:45: 32 Yes 1mg Q.5D Take 1 tablet (1 mg total) by mouth 2 (two) times daily Give with meals and with a full glass of water.. [facility] albuterol HFA (VENTOLIN HFA) 90 mcg/actuati on inhaler 2022-07 19:45: 32 Yes 1{puff} Inhale 1 puff by mouth via inhaler every 6 (six) hours as needed for Wheezing. [facility] fluticasone -umeclidin- vilanter (Trelegy Ellipta) 200-62.5-25 mcg DsDv 2022-07 19:45: 32 Yes QD Inhale by mouth via inhaler daily. [facility] atorvastati n (LIPITOR) 20 MG tablet 2022-07 19:45: 32 Yes 20mg QD Take 1 tablet (20 mg total) by mouth daily. [facility] metoprolol succinate (TOPROL-XL) 25 MG 24 hr tablet 2022-07 19:45: 32 Yes 25mg QD Take 1 tablet (25 mg total) by mouth daily. [facility] varenicline (CHANTIX) 1 mg tablet 2022-07 19:45: 32 Yes 1mg Q.5D Take 1 tablet (1 mg total) by mouth 2 (two) times daily Give with meals and with a full glass of water.. [facility] albuterol HFA (VENTOLIN HFA) 90 mcg/actuati on inhaler 2022-07 19:45: 32 Yes 1{puff} Inhale 1 puff by mouth via inhaler every 6 (six) hours as needed for Wheezing. [facility] fluticasone -umeclidin- vilanter (Trelegy Ellipta) 200-62.5-25 mcg DsDv 2022-07 19:45: 32 Yes QD Inhale by mouth via inhaler daily. [facility] atorvastati n (LIPITOR) 20 MG tablet 2022-07 19:45: 32 Yes 20mg QD Take 1 tablet (20 mg total) by mouth daily. [facility] acetaminoph en-codeine (TYLENOL #3) 300-30 mg per tablet 2022-07 18:02: 00 06-16 00:00 :00 No 1{tbl} Take 1 tablet by mouth every 4 (four) hours as needed for Pain. [facility] acetaminoph en-codeine (TYLENOL #3) 300-30 mg per tablet 2022-07 18:02: 00 06-16 00:00 :00 No 1{tbl} Take 1 tablet by mouth every 4 (four) hours as needed for Pain. [facility] acetaminoph en-codeine (TYLENOL #3) 300-30 mg per tablet 2022-07 18:02: 00 06-16 00:00 :00 No 1{tbl} Take 1 tablet by mouth every 4 (four) hours as needed for Pain. [facility] acetaminoph en-codeine (TYLENOL #3) 300-30 mg per tablet 2022-07 18:02: 00 06-16 00:00 :00 No 1{tbl} Take 1 tablet by mouth every 4 (four) hours as needed for Pain. [facility] acetaminoph en-codeine (TYLENOL #3) 300-30 mg per tablet 2022-07 18:02: 00 06-16 00:00 :00 No 1{tbl} Take 1 tablet by mouth every 4 (four) hours as needed for Pain. [facility] acetaminoph en-codeine (TYLENOL #3) 300-30 mg per tablet 2022-07 18:02: 00 06-16 00:00 :00 No 1{tbl} Take 1 tablet by mouth every 4 (four) hours as needed for Pain. [facility] acetaminoph en-codeine (TYLENOL #3) 300-30 mg per tablet 2022-07 18:02: 00 06-16 00:00 :00 No 1{tbl} Take 1 tablet by mouth every 4 (four) hours as needed for Pain. [facility] acetaminoph en-codeine (TYLENOL #3) 300-30 mg per tablet 2022-07 18:02: 00 06-16 00:00 :00 No 1{tbl} Take 1 tablet by mouth every 4 (four) hours as needed for Pain. [facility] acetaminoph en-codeine (TYLENOL #3) 300-30 mg per tablet 2022-07 18:02: 00 06-16 00:00 :00 No 1{tbl} Take 1 tablet by mouth every 4 (four) hours as needed for Pain. [facility] DULoxetine (CYMBALTA) 30 MG capsule 2022-07 00:00: 00 09-14 23:59 :00 Yes 30mg QD Take 1 capsule (30 mg total) by mouth daily for 90 days. [facility] DULoxetine (CYMBALTA) 30 MG capsule 2022-07 00:00: 00 09-14 23:59 :00 Yes 30mg QD Take 1 capsule (30 mg total) by mouth daily for 90 days. [facility] DULoxetine (CYMBALTA) 30 MG capsule 2022-07 00:00: 00 09-14 23:59 :00 Yes 30mg QD Take 1 capsule (30 mg total) by mouth daily for 90 days. [facility] DULoxetine (CYMBALTA) 30 MG capsule 2022-07 00:00: 00 09-14 23:59 :00 Yes 30mg QD Take 1 capsule (30 mg total) by mouth daily for 90 days. [facility] DULoxetine (CYMBALTA) 30 MG capsule 2022-07 00:00: 00 09-14 23:59 :00 Yes 30mg QD Take 1 capsule (30 mg total) by mouth daily for 90 days. [facility] DULoxetine (CYMBALTA) 30 MG capsule 2022-07 00:00: 00 09-14 23:59 :00 Yes 30mg QD Take 1 capsule (30 mg total) by mouth daily for 90 days. [facility] DULoxetine (CYMBALTA) 30 MG capsule 2022-07 00:00: 00 09-14 23:59 :00 Yes 30mg QD Take 1 capsule (30 mg total) by mouth daily for 90 days. [facility] DULoxetine (CYMBALTA) 30 MG capsule 2022-07 00:00: 00 09-14 23:59 :00 Yes 30mg QD Take 1 capsule (30 mg total) by mouth daily for 90 days. [facility] DULoxetine (CYMBALTA) 30 MG capsule 2022-07 00:00: 00 09-14 23:59 :00 Yes 30mg QD Take 1 capsule (30 mg total) by mouth daily for 90 days. [facility] metroNIDAZO LE (FLAGYL) 500 MG tablet 2022-07 00:00: 00 07-04 23:59 :00 No 500mg Take 1 tablet (500 mg total) by mouth every 8 (eight) hours for 18 days. [facility] ciprofloxac in HCl (CIPRO) 500 MG tablet 2022-07 00:00: 00 07-04 23:59 :00 No 500mg Q.5D Take 1 tablet (500 mg total) by mouth 2 (two) times daily for 18 days. [facility] metroNIDAZO LE (FLAGYL) 500 MG tablet 2022-07 00:00: 00 07-04 23:59 :00 No 500mg Take 1 tablet (500 mg total) by mouth every 8 (eight) hours for 18 days. [facility] ciprofloxac in HCl (CIPRO) 500 MG tablet 2022-07 00:00: 00 07-04 23:59 :00 No 500mg Q.5D Take 1 tablet (500 mg total) by mouth 2 (two) times daily for 18 days. [facility] metroNIDAZO LE (FLAGYL) 500 MG tablet 2022-07 00:00: 00 07-04 23:59 :00 No 500mg Take 1 tablet (500 mg total) by mouth every 8 (eight) hours for 18 days. [facility] ciprofloxac in HCl (CIPRO) 500 MG tablet 2022-07 00:00: 00 07-04 23:59 :00 No 500mg Q.5D Take 1 tablet (500 mg total) by mouth 2 (two) times daily for 18 days. [facility] metroNIDAZO LE (FLAGYL) 500 MG tablet 2022-07 00:00: 00 07-04 23:59 :00 No 500mg Take 1 tablet (500 mg total) by mouth every 8 (eight) hours for 18 days. [facility] ciprofloxac in HCl (CIPRO) 500 MG tablet 2022-07 00:00: 00 07-04 23:59 :00 No 500mg Q.5D Take 1 tablet (500 mg total) by mouth 2 (two) times daily for 18 days. [facility] metroNIDAZO LE (FLAGYL) 500 MG tablet 2022-07 00:00: 00 07-04 23:59 :00 No 500mg Take 1 tablet (500 mg total) by mouth every 8 (eight) hours for 18 days. [facility] ciprofloxac in HCl (CIPRO) 500 MG tablet 2022-07 00:00: 00 07-04 23:59 :00 No 500mg Q.5D Take 1 tablet (500 mg total) by mouth 2 (two) times daily for 18 days. [facility] metroNIDAZO LE (FLAGYL) 500 MG tablet 2022-07 00:00: 00 07-04 23:59 :00 No 500mg Take 1 tablet (500 mg total) by mouth every 8 (eight) hours for 18 days. [facility] ciprofloxac in HCl (CIPRO) 500 MG tablet 2022-07 00:00: 00 07-04 23:59 :00 No 500mg Q.5D Take 1 tablet (500 mg total) by mouth 2 (two) times daily for 18 days. [facility] metroNIDAZO LE (FLAGYL) 500 MG tablet 2022-07 00:00: 00 07-04 23:59 :00 No 500mg Take 1 tablet (500 mg total) by mouth every 8 (eight) hours for 18 days. [facility] ciprofloxac in HCl (CIPRO) 500 MG tablet 2022-07 00:00: 00 07-04 23:59 :00 No 500mg Q.5D Take 1 tablet (500 mg total) by mouth 2 (two) times daily for 18 days. [facility] metroNIDAZO LE (FLAGYL) 500 MG tablet 2022-07 00:00: 00 07-04 23:59 :00 Yes 500mg Take 1 tablet (500 mg total) by mouth every 8 (eight) hours for 18 days. [facility] ciprofloxac in HCl (CIPRO) 500 MG tablet 2022-07 00:00: 00 07-04 23:59 :00 Yes 500mg Q.5D Take 1 tablet (500 mg total) by mouth 2 (two) times daily for 18 days. [facility] metroNIDAZO LE (FLAGYL) 500 MG tablet 2022-07 00:00: 00 07-04 23:59 :00 Yes 500mg Take 1 tablet (500 mg total) by mouth every 8 (eight) hours for 18 days. [facility] ciprofloxac in HCl (CIPRO) 500 MG tablet 2022-07 00:00: 00 07-04 23:59 :00 Yes 500mg Q.5D Take 1 tablet (500 mg total) by mouth 2 (two) times daily for 18 days. [facility] cyclobenzap rine (FLEXERIL) 10 MG tablet 2022-07 00:00: 00 06-26 23:59 :00 No 10mg Q.[id number] 3D Take 1 tablet (10 mg total) by mouth 3 (three) times daily for 10 days. [facility] oxyCODONE (OXY-IR) 10 mg tablet 2022-07 00:00: 00 06-26 23:59 :00 No 10mg Take 1 tablet (10 mg total) by mouth every 8 (eight) hours as needed for up to 10 days. Max Daily Amount: 30 mg [facility] cyclobenzap rine (FLEXERIL) 10 MG tablet 2022-07 00:00: 00 06-26 23:59 :00 No 10mg Q.[id number] 3D Take 1 tablet (10 mg total) by mouth 3 (three) times daily for 10 days. [facility] oxyCODONE (OXY-IR) 10 mg tablet 2022-07 00:00: 00 06-26 23:59 :00 No 10mg Take 1 tablet (10 mg total) by mouth every 8 (eight) hours as needed for up to 10 days. Max Daily Amount: 30 mg [facility] cyclobenzap rine (FLEXERIL) 10 MG tablet 2022-07 00:00: 00 06-26 23:59 :00 No 10mg Q.[id number] 3D Take 1 tablet (10 mg total) by mouth 3 (three) times daily for 10 days. [facility] oxyCODONE (OXY-IR) 10 mg tablet 2022-07 00:00: 00 06-26 23:59 :00 No 10mg Take 1 tablet (10 mg total) by mouth every 8 (eight) hours as needed for up to 10 days. Max Daily Amount: 30 mg [facility] cyclobenzap rine (FLEXERIL) 10 MG tablet 2022-07 00:00: 00 06-26 23:59 :00 No 10mg Q.[id number] 3D Take 1 tablet (10 mg total) by mouth 3 (three) times daily for 10 days. [facility] oxyCODONE (OXY-IR) 10 mg tablet 2022-07 00:00: 00 06-26 23:59 :00 No 10mg Take 1 tablet (10 mg total) by mouth every 8 (eight) hours as needed for up to 10 days. Max Daily Amount: 30 mg [facility] cyclobenzap rine (FLEXERIL) 10 MG tablet 2022-07 00:00: 00 06-26 23:59 :00 No 10mg Q.[id number] 3D Take 1 tablet (10 mg total) by mouth 3 (three) times daily for 10 days. [facility] oxyCODONE (OXY-IR) 10 mg tablet 2022-07 00:00: 00 06-26 23:59 :00 No 10mg Take 1 tablet (10 mg total) by mouth every 8 (eight) hours as needed for up to 10 days. Max Daily Amount: 30 mg [facility] cyclobenzap rine (FLEXERIL) 10 MG tablet 2022-07 00:00: 00 06-26 23:59 :00 No 10mg Q.[id number] 3D Take 1 tablet (10 mg total) by mouth 3 (three) times daily for 10 days. [facility] oxyCODONE (OXY-IR) 10 mg tablet 2022-07 00:00: 00 06-26 23:59 :00 No 10mg Take 1 tablet (10 mg total) by mouth every 8 (eight) hours as needed for up to 10 days. Max Daily Amount: 30 mg [facility] cyclobenzap rine (FLEXERIL) 10 MG tablet 2022-07 00:00: 00 06-26 23:59 :00 No 10mg Q.[id number] [id number] 3D Take 1 tablet (10 mg total) by mouth 3 (three) times daily for 10 days. [facility] oxyCODONE (OXY-IR) 10 mg tablet 2022-07 00:00: 00 06-26 23:59 :00 No 10mg Take 1 tablet (10 mg total) by mouth every 8 (eight) hours as needed for up to 10 days. Max Daily Amount: 30 mg [facility] cyclobenzap rine (FLEXERIL) 10 MG tablet 2022-07 00:00: 00 06-26 23:59 :00 Yes 10mg Q.[id number] 3D Take 1 tablet (10 mg total) by mouth 3 (three) times daily for 10 days. [facility] oxyCODONE (OXY-IR) 10 mg tablet 2022-07 00:00: 00 06-26 23:59 :00 Yes 10mg Take 1 tablet (10 mg total) by mouth every 8 (eight) hours as needed for up to 10 days. Max Daily Amount: 30 mg [facility] cyclobenzap rine (FLEXERIL) 10 MG tablet 2022-07 00:00: 00 06-26 23:59 :00 Yes 10mg Q.[id number] 3D Take 1 tablet (10 mg total) by mouth 3 (three) times daily for 10 days. [facility] oxyCODONE (OXY-IR) 10 mg tablet 2022-07 00:00: 00 06-26 23:59 :00 Yes 10mg Take 1 tablet (10 mg total) by mouth every 8 (eight) hours as needed for up to 10 days. Max Daily Amount: 30 mg [facility] nystatin (MYCOSTATIN ) 100,000 unit/mL suspension 2022-07 00:00: 00 06-21 23:59 :00 No [id number] Q.25D Take 5 mLs (500,000 Units total) by mouth 4 (four) times daily for 5 days. [facility] nystatin (MYCOSTATIN ) 100,000 unit/mL suspension 2022-07 00:00: 00 06-21 23:59 :00 No [id number] Q.25D Take 5 mLs (500,000 Units total) by mouth 4 (four) times daily for 5 days. [facility] nystatin (MYCOSTATIN ) 100,000 unit/mL suspension 2022-07 00:00: 00 06-21 23:59 :00 No [id number] Q.25D Take 5 mLs (500,000 Units total) by mouth 4 (four) times daily for 5 days. [facility] nystatin (MYCOSTATIN ) 100,000 unit/mL suspension 2022-07 00:00: 00 06-21 23:59 :00 No [id number] Q.25D Take 5 mLs (500,000 Units total) by mouth 4 (four) times daily for 5 days. [facility] nystatin (MYCOSTATIN ) 100,000 unit/mL suspension 2022-07 00:00: 00 06-21 23:59 :00 No [id number] Q.25D Take 5 mLs (500,000 Units total) by mouth 4 (four) times daily for 5 days. [facility] nystatin (MYCOSTATIN ) 100,000 unit/mL suspension 2022-07 00:00: 00 06-21 23:59 :00 No [id number] Q.25D Take 5 mLs (500,000 Units total) by mouth 4 (four) times daily for 5 days. [facility] nystatin (MYCOSTATIN ) 100,000 unit/mL suspension 2022-07 00:00: 00 06-21 23:59 :00 No [id number] Q.25D Take 5 mLs (500,000 Units total) by mouth 4 (four) times daily for 5 days. [facility] nystatin (MYCOSTATIN ) 100,000 unit/mL suspension 2022-07 00:00: 00 06-21 23:59 :00 Yes [id number] Q.25D Take 5 mLs (500,000 Units total) by mouth 4 (four) times daily for 5 days. [facility] nystatin (MYCOSTATIN ) 100,000 unit/mL suspension 2022-07 00:00: 00 06-21 23:59 :00 Yes [id number] Q.25D Take 5 mLs (500,000 Units total) by mouth 4 (four) times daily for 5 days. [facility] dexAMETHaso ne (DECADRON) 2 MG tablet 2022-07 00:00: 00 06-08 23:59 :00 No 1mg Take 0.5 tablets (1 mg total) by mouth 2 (two) times daily with breakfast and dinner for 2 days. [facility] dexAMETHaso ne (DECADRON) 2 MG tablet 2022-07 00:00: 00 06-08 23:59 :00 No 1mg Take 0.5 tablets (1 mg total) by mouth 2 (two) times daily with breakfast and dinner for 2 days. [facility] dexAMETHaso ne (DECADRON) 2 MG tablet 2022-07 00:00: 00 06-08 23:59 :00 No 1mg Take 0.5 tablets (1 mg total) by mouth 2 (two) times daily with breakfast and dinner for 2 days. [facility] dexAMETHaso ne (DECADRON) 2 MG tablet 2022-07 00:00: 00 06-08 23:59 :00 No 1mg Take 0.5 tablets (1 mg total) by mouth 2 (two) times daily with breakfast and dinner for 2 days. [facility] dexAMETHaso ne (DECADRON) 2 MG tablet 2022-07 00:00: 00 06-08 23:59 :00 No 1mg Take 0.5 tablets (1 mg total) by mouth 2 (two) times daily with breakfast and dinner for 2 days. [facility] dexAMETHaso ne (DECADRON) 2 MG tablet 2022-07 00:00: 00 06-08 23:59 :00 No 1mg Take 0.5 tablets (1 mg total) by mouth 2 (two) times daily with breakfast and dinner for 2 days. [facility] dexAMETHaso ne (DECADRON) 2 MG tablet 2022-07 00:00: 00 06-08 23:59 :00 No 1mg Take 0.5 tablets (1 mg total) by mouth 2 (two) times daily with breakfast and dinner for 2 days. [facility] dexAMETHaso ne (DECADRON) 2 MG tablet 2022-07 00:00: 00 06-08 23:59 :00 Yes 1mg Take 0.5 tablets (1 mg total) by mouth 2 (two) times daily with breakfast and dinner for 2 days. [facility] dexAMETHaso ne (DECADRON) 2 MG tablet 2022-07 00:00: 00 06-08 23:59 :00 Yes 1mg Take 0.5 tablets (1 mg total) by mouth 2 (two) times daily with breakfast and dinner for 2 days. [facility] dexAMETHaso ne (DECADRON) 2 MG tablet 2022-07 00:00: 00 06-08 23:59 :00 No 1mg Take 0.5 tablets (1 mg total) by mouth 2 (two) times daily with breakfast and dinner for 2 days. [facility] dexAMETHaso ne (DECADRON) 2 MG tablet 2022-07 00:00: 00 06-08 23:59 :00 No 1mg Take 0.5 tablets (1 mg total) by mouth 2 (two) times daily with breakfast and dinner for 2 days. [facility] dexAMETHaso ne (DECADRON) 2 MG tablet 2022-07 00:00: 00 06-08 23:59 :00 No 1mg Take 0.5 tablets (1 mg total) by mouth 2 (two) times daily with breakfast and dinner for 2 days. [facility] dexAMETHaso ne (DECADRON) 2 MG tablet 2022-07 00:00: 00 06-06 23:59 :00 No 2mg Take 1 tablet (2 mg total) by mouth 2 (two) times daily with breakfast and dinner for 1 day. [facility] dexAMETHaso ne (DECADRON) 2 MG tablet 2022-07 00:00: 00 06-06 23:59 :00 No 2mg Take 1 tablet (2 mg total) by mouth 2 (two) times daily with breakfast and dinner for 1 day. [facility] dexAMETHaso ne (DECADRON) 2 MG tablet 2022-07 00:00: 00 06-06 23:59 :00 No 2mg Take 1 tablet (2 mg total) by mouth 2 (two) times daily with breakfast and dinner for 1 day. [facility] dexAMETHaso ne (DECADRON) 2 MG tablet 2022-07 00:00: 00 06-06 23:59 :00 No 2mg Take 1 tablet (2 mg total) by mouth 2 (two) times daily with breakfast and dinner for 1 day. [facility] dexAMETHaso ne (DECADRON) 2 MG tablet 2022-07 00:00: 00 06-06 23:59 :00 No 2mg Take 1 tablet (2 mg total) by mouth 2 (two) times daily with breakfast and dinner for 1 day. [facility] dexAMETHaso ne (DECADRON) 2 MG tablet 2022-07 00:00: 00 06-06 23:59 :00 No 2mg Take 1 tablet (2 mg total) by mouth 2 (two) times daily with breakfast and dinner for 1 day. [facility] dexAMETHaso ne (DECADRON) 2 MG tablet 2022-07 00:00: 00 06-06 23:59 :00 No 2mg Take 1 tablet (2 mg total) by mouth 2 (two) times daily with breakfast and dinner for 1 day. [facility] dexAMETHaso ne (DECADRON) 2 MG tablet 2022-07 00:00: 00 06-06 23:59 :00 Yes 2mg Take 1 tablet (2 mg total) by mouth 2 (two) times daily with breakfast and dinner for 1 day. [facility] dexAMETHaso ne (DECADRON) 2 MG tablet 2022-07 00:00: 00 06-06 23:59 :00 Yes 2mg Take 1 tablet (2 mg total) by mouth 2 (two) times daily with breakfast and dinner for 1 day. [facility] dexAMETHaso ne (DECADRON) 2 MG tablet 2022-07 00:00: 00 06-06 23:59 :00 No 2mg Take 1 tablet (2 mg total) by mouth 2 (two) times daily with breakfast and dinner for 1 day. [facility] dexAMETHaso ne (DECADRON) 2 MG tablet 2022-07 00:00: 00 06-06 23:59 :00 No 2mg Take 1 tablet (2 mg total) by mouth 2 (two) times daily with breakfast and dinner for 1 day. [facility] dexAMETHaso ne (DECADRON) 2 MG tablet 2022-07 00:00: 00 06-06 23:59 :00 No 2mg Take 1 tablet (2 mg total) by mouth 2 (two) times daily with breakfast and dinner for 1 day. [facility] metoprolol succinate (TOPROL-XL) 25 MG 24 hr tablet 2022-07 17:44: 21 Yes 25mg QD Take 1 tablet (25 mg total) by mouth daily. [facility] varenicline (CHANTIX) 1 mg tablet 2022-07 17:44: 21 Yes 1mg Q.5D Take 1 tablet (1 mg total) by mouth 2 (two) times daily Give with meals and with a full glass of water.. [facility] albuterol HFA (VENTOLIN HFA) 90 mcg/actuati on inhaler 2022-07 17:44: 21 Yes 1{puff} Inhale 1 puff by mouth via inhaler every 6 (six) hours as needed for Wheezing. [facility] fluticasone -umeclidin- vilanter (Trelegy Ellipta) 200-62.5-25 mcg DsDv 2022-07 17:44: 21 Yes QD Inhale by mouth via inhaler daily. [facility] atorvastati n (LIPITOR) 20 MG tablet 2022-07 17:44: 21 Yes 20mg QD Take 1 tablet (20 mg total) by mouth daily. [facility] acetaminoph en-codeine (TYLENOL #3) 300-30 mg per tablet 2022-07 17:44: 21 Yes 1{tbl} Take 1 tablet by mouth every 4 (four) hours as needed for Pain. [facility] metoprolol succinate (TOPROL-XL) 25 MG 24 hr tablet 2022-07 17:44: 21 Yes 25mg QD Take 1 tablet (25 mg total) by mouth daily. [facility] varenicline (CHANTIX) 1 mg tablet 2022-07 17:44: 21 Yes 1mg Q.5D Take 1 tablet (1 mg total) by mouth 2 (two) times daily Give with meals and with a full glass of water.. [facility] albuterol HFA (VENTOLIN HFA) 90 mcg/actuati on inhaler 2022-07 17:44: 21 Yes 1{puff} Inhale 1 puff by mouth via inhaler every 6 (six) hours as needed for Wheezing. [facility] fluticasone -umeclidin- vilanter (Trelegy Ellipta) 200-62.5-25 mcg DsDv 2022-07 17:44: 21 Yes QD Inhale by mouth via inhaler daily. [facility] atorvastati n (LIPITOR) 20 MG tablet 2022-07 17:44: 21 Yes 20mg QD Take 1 tablet (20 mg total) by mouth daily. [facility] acetaminoph en-codeine (TYLENOL #3) 300-30 mg per tablet 2022-07 17:44: 21 Yes 1{tbl} Take 1 tablet by mouth every 4 (four) hours as needed for Pain. [facility] metoprolol succinate (TOPROL-XL) 25 MG 24 hr tablet 2022-07 17:44: 21 Yes 25mg QD Take 1 tablet (25 mg total) by mouth daily. [facility] varenicline (CHANTIX) 1 mg tablet 2022-07 17:44: 21 Yes 1mg Q.5D Take 1 tablet (1 mg total) by mouth 2 (two) times daily Give with meals and with a full glass of water.. [facility] albuterol HFA (VENTOLIN HFA) 90 mcg/actuati on inhaler 2022-07 17:44: 21 Yes 1{puff} Inhale 1 puff by mouth via inhaler every 6 (six) hours as needed for Wheezing. [facility] fluticasone -umeclidin- vilanter (Trelegy Ellipta) 200-62.5-25 mcg DsDv 2022-07 17:44: 21 Yes QD Inhale by mouth via inhaler daily. [facility] atorvastati n (LIPITOR) 20 MG tablet 2022-07 17:44: 21 Yes 20mg QD Take 1 tablet (20 mg total) by mouth daily. [facility] acetaminoph en-codeine (TYLENOL #3) 300-30 mg per tablet 2022-07 17:44: 21 Yes 1{tbl} Take 1 tablet by mouth every 4 (four) hours as needed for Pain. [facility] senna (SENOKOT) 8.6 mg tablet 2022-07 00:00: 00 06-18 23:59 :00 No 17.2mg Q.5D Take 2 tablets (17.2 mg total) by mouth 2 (two) times daily for 14 days. [facility] senna (SENOKOT) 8.6 mg tablet 2022-07 00:00: 00 06-18 23:59 :00 No 17.2mg Q.5D Take 2 tablets (17.2 mg total) by mouth 2 (two) times daily for 14 days. [facility] senna (SENOKOT) 8.6 mg tablet 2022-07 00:00: 00 06-18 23:59 :00 No 17.2mg Q.5D Take 2 tablets (17.2 mg total) by mouth 2 (two) times daily for 14 days. [facility] senna (SENOKOT) 8.6 mg tablet 2022-07 00:00: 00 06-18 23:59 :00 No 17.2mg Q.5D Take 2 tablets (17.2 mg total) by mouth 2 (two) times daily for 14 days. [facility] senna (SENOKOT) 8.6 mg tablet 2022-07 00:00: 00 06-18 23:59 :00 No 17.2mg Q.5D Take 2 tablets (17.2 mg total) by mouth 2 (two) times daily for 14 days. [facility] senna (SENOKOT) 8.6 mg tablet 2022-07 00:00: 00 06-18 23:59 :00 No 17.2mg Q.5D Take 2 tablets (17.2 mg total) by mouth 2 (two) times daily for 14 days. [facility] senna (SENOKOT) 8.6 mg tablet 2022-07 00:00: 00 06-18 23:59 :00 No 17.2mg Q.5D Take 2 tablets (17.2 mg total) by mouth 2 (two) times daily for 14 days. [facility] senna (SENOKOT) 8.6 mg tablet 2022-07 00:00: 00 06-18 23:59 :00 Yes 17.2mg Q.5D Take 2 tablets (17.2 mg total) by mouth 2 (two) times daily for 14 days. [facility] senna (SENOKOT) 8.6 mg tablet 2022-07 00:00: 00 06-18 23:59 :00 Yes 17.2mg Q.5D Take 2 tablets (17.2 mg total) by mouth 2 (two) times daily for 14 days. [facility] senna (SENOKOT) 8.6 mg tablet 2022-07 00:00: 00 06-18 23:59 :00 Yes 17.2mg Q.5D Take 2 tablets (17.2 mg total) by mouth 2 (two) times daily for 14 days. [facility] senna (SENOKOT) 8.6 mg tablet 2022-07 00:00: 00 06-18 23:59 :00 Yes 17.2mg Q.5D Take 2 tablets (17.2 mg total) by mouth 2 (two) times daily for 14 days. [facility] senna (SENOKOT) 8.6 mg tablet 2022-07 00:00: 00 06-18 23:59 :00 No 17.2mg Q.5D Take 2 tablets (17.2 mg total) by mouth 2 (two) times daily for 14 days. [facility] cyclobenzap rine (FLEXERIL) 10 MG tablet 2022-07 00:00: 00 06-16 00:00 :00 No 10mg Q.[id number] 3D Take 1 tablet (10 mg total) by mouth 3 (three) times daily for 10 days. [facility] methocarbam oL (ROBAXIN) 500 MG tablet 2022-07 00:00: 00 06-16 00:00 :00 No 500mg Q.25D Take 1 tablet (500 mg total) by mouth 4 (four) times daily for 10 days. [facility] cyclobenzap rine (FLEXERIL) 10 MG tablet 2022-07 00:00: 00 06-16 00:00 :00 No 10mg Q.[id number] 3D Take 1 tablet (10 mg total) by mouth 3 (three) times daily for 10 days. [facility] methocarbam oL (ROBAXIN) 500 MG tablet 2022-07 00:00: 00 06-16 00:00 :00 No 500mg Q.25D Take 1 tablet (500 mg total) by mouth 4 (four) times daily for 10 days. [facility] cyclobenzap rine (FLEXERIL) 10 MG tablet 2022-07 00:00: 00 06-16 00:00 :00 No 10mg Q.[id number] 3D Take 1 tablet (10 mg total) by mouth 3 (three) times daily for 10 days. [facility] methocarbam oL (ROBAXIN) 500 MG tablet 2022-07 00:00: 00 06-16 00:00 :00 No 500mg Q.25D Take 1 tablet (500 mg total) by mouth 4 (four) times daily for 10 days. [facility] cyclobenzap rine (FLEXERIL) 10 MG tablet 2022-07 00:00: 00 06-16 00:00 :00 No 10mg Q.[id number] [id number] 3D Take 1 tablet (10 mg total) by mouth 3 (three) times daily for 10 days. [facility] methocarbam oL (ROBAXIN) 500 MG tablet 2022-07 00:00: 00 06-16 00:00 :00 No 500mg Q.25D Take 1 tablet (500 mg total) by mouth 4 (four) times daily for 10 days. [facility] cyclobenzap rine (FLEXERIL) 10 MG tablet 2022-07 00:00: 00 06-16 00:00 :00 No 10mg Q.[id number] 3D Take 1 tablet (10 mg total) by mouth 3 (three) times daily for 10 days. [facility] methocarbam oL (ROBAXIN) 500 MG tablet 2022-07 00:00: 00 06-16 00:00 :00 No 500mg Q.25D Take 1 tablet (500 mg total) by mouth 4 (four) times daily for 10 days. [facility] cyclobenzap rine (FLEXERIL) 10 MG tablet 2022-07 00:00: 00 06-16 00:00 :00 No 10mg Q.[id number] 3D Take 1 tablet (10 mg total) by mouth 3 (three) times daily for 10 days. [facility] methocarbam oL (ROBAXIN) 500 MG tablet 2022-07 00:00: 00 06-16 00:00 :00 No 500mg Q.25D Take 1 tablet (500 mg total) by mouth 4 (four) times daily for 10 days. [facility] cyclobenzap rine (FLEXERIL) 10 MG tablet 2022-07 00:00: 00 06-16 00:00 :00 No 10mg Q.[id number] 3D Take 1 tablet (10 mg total) by mouth 3 (three) times daily for 10 days. [facility] methocarbam oL (ROBAXIN) 500 MG tablet 2022-07 00:00: 00 06-16 00:00 :00 No 500mg Q.25D Take 1 tablet (500 mg total) by mouth 4 (four) times daily for 10 days. [facility] cyclobenzap rine (FLEXERIL) 10 MG tablet 2022-07 00:00: 00 06-16 00:00 :00 No 10mg Q.[id number] 3D Take 1 tablet (10 mg total) by mouth 3 (three) times daily for 10 days. [facility] methocarbam oL (ROBAXIN) 500 MG tablet 2022-07 00:00: 00 06-16 00:00 :00 No 500mg Q.25D Take 1 tablet (500 mg total) by mouth 4 (four) times daily for 10 days. [facility] cyclobenzap rine (FLEXERIL) 10 MG tablet 2022-07 00:00: 00 06-16 00:00 :00 No 10mg Q.[id number] 3D Take 1 tablet (10 mg total) by mouth 3 (three) times daily for 10 days. [facility] methocarbam oL (ROBAXIN) 500 MG tablet 2022-07 00:00: 00 06-16 00:00 :00 No 500mg Q.25D Take 1 tablet (500 mg total) by mouth 4 (four) times daily for 10 days. [facility] cyclobenzap rine (FLEXERIL) 10 MG tablet 2022-07 00:00: 00 06-14 23:59 :00 Yes 10mg Q.[id number] 3D Take 1 tablet (10 mg total) by mouth 3 (three) times daily for 10 days. [facility] methocarbam oL (ROBAXIN) 500 MG tablet 2022-07 00:00: 00 06-14 23:59 :00 Yes 500mg Q.25D Take 1 tablet (500 mg total) by mouth 4 (four) times daily for 10 days. [facility] cyclobenzap rine (FLEXERIL) 10 MG tablet 2022-07 00:00: 00 06-14 23:59 :00 Yes 10mg Q.[id number] 3D Take 1 tablet (10 mg total) by mouth 3 (three) times daily for 10 days. [facility] methocarbam oL (ROBAXIN) 500 MG tablet 2022-07 00:00: 00 06-14 23:59 :00 Yes 500mg Q.25D Take 1 tablet (500 mg total) by mouth 4 (four) times daily for 10 days. [facility] cyclobenzap rine (FLEXERIL) 10 MG tablet 2022-07 00:00: 00 06-14 23:59 :00 Yes 10mg Q.[id number] 3D Take 1 tablet (10 mg total) by mouth 3 (three) times daily for 10 days. [facility] methocarbam oL (ROBAXIN) 500 MG tablet 2022-07 00:00: 00 06-14 23:59 :00 Yes 500mg Q.25D Take 1 tablet (500 mg total) by mouth 4 (four) times daily for 10 days. [facility] lactulose (CHRONULAC) 20 gram/30 mL solution 2022-07 00:00: 00 06-11 23:59 :00 No 20g Q.[id number] 3D Take 30 mLs (20 g total) by mouth 3 (three) times daily for 7 days. [facility] ondansetron (ZOFRAN-ODT ) 4 MG disintegrat ing tablet 2022-07 00:00: 00 06-11 23:59 :00 No 4mg Take 1 tablet (4 mg total) by mouth every 6 (six) hours as needed for up to 7 days. [facility] lactulose (CHRONULAC) 20 gram/30 mL solution 2022-07 00:00: 00 06-11 23:59 :00 No 20g Q.[id number] 3D Take 30 mLs (20 g total) by mouth 3 (three) times daily for 7 days. [facility] ondansetron (ZOFRAN-ODT ) 4 MG disintegrat ing tablet 2022-07 00:00: 00 06-11 23:59 :00 No 4mg Take 1 tablet (4 mg total) by mouth every 6 (six) hours as needed for up to 7 days. [facility] lactulose (CHRONULAC) 20 gram/30 mL solution 2022-07 00:00: 00 06-11 23:59 :00 No 20g Q.[id number] 3D Take 30 mLs (20 g total) by mouth 3 (three) times daily for 7 days. [facility] ondansetron (ZOFRAN-ODT ) 4 MG disintegrat ing tablet 2022-07 00:00: 00 06-11 23:59 :00 No 4mg Take 1 tablet (4 mg total) by mouth every 6 (six) hours as needed for up to 7 days. [facility] lactulose (CHRONULAC) 20 gram/30 mL solution 2022-07 00:00: 00 06-11 23:59 :00 No 20g Q.[id number] 3D Take 30 mLs (20 g total) by mouth 3 (three) times daily for 7 days. [facility] ondansetron (ZOFRAN-ODT ) 4 MG disintegrat ing tablet 2022-07 00:00: 00 06-11 23:59 :00 No 4mg Take 1 tablet (4 mg total) by mouth every 6 (six) hours as needed for up to 7 days. [facility] lactulose (CHRONULAC) 20 gram/30 mL solution 2022-07 00:00: 00 06-11 23:59 :00 No 20g Q.[id number] 3D Take 30 mLs (20 g total) by mouth 3 (three) times daily for 7 days. [facility] ondansetron (ZOFRAN-ODT ) 4 MG disintegrat ing tablet 2022-07 00:00: 00 06-11 23:59 :00 No 4mg Take 1 tablet (4 mg total) by mouth every 6 (six) hours as needed for up to 7 days. [facility] lactulose (CHRONULAC) 20 gram/30 mL solution 2022-07 00:00: 00 06-11 23:59 :00 No 20g Q.[id number] 3D Take 30 mLs (20 g total) by mouth 3 (three) times daily for 7 days. [facility] ondansetron (ZOFRAN-ODT ) 4 MG disintegrat ing tablet 2022-07 00:00: 00 06-11 23:59 :00 No 4mg Take 1 tablet (4 mg total) by mouth every 6 (six) hours as needed for up to 7 days. [facility] lactulose (CHRONULAC) 20 gram/30 mL solution 2022-07 00:00: 00 06-11 23:59 :00 No 20g Q.[id number] 3D Take 30 mLs (20 g total) by mouth 3 (three) times daily for 7 days. [facility] ondansetron (ZOFRAN-ODT ) 4 MG disintegrat ing tablet 2022-07 00:00: 00 06-11 23:59 :00 No 4mg Take 1 tablet (4 mg total) by mouth every 6 (six) hours as needed for up to 7 days. [facility] lactulose (CHRONULAC) 20 gram/30 mL solution 2022-07 00:00: 00 06-11 23:59 :00 Yes 20g Q.[id number] 3D Take 30 mLs (20 g total) by mouth 3 (three) times daily for 7 days. [facility] ondansetron (ZOFRAN-ODT ) 4 MG disintegrat ing tablet 2022-07 00:00: 00 06-11 23:59 :00 Yes 4mg Take 1 tablet (4 mg total) by mouth every 6 (six) hours as needed for up to 7 days. [facility] lactulose (CHRONULAC) 20 gram/30 mL solution 2022-07 00:00: 00 06-11 23:59 :00 Yes 20g Q.[id number] 3D Take 30 mLs (20 g total) by mouth 3 (three) times daily for 7 days. [facility] ondansetron (ZOFRAN-ODT ) 4 MG disintegrat ing tablet 2022-07 00:00: 00 06-11 23:59 :00 Yes 4mg Take 1 tablet (4 mg total) by mouth every 6 (six) hours as needed for up to 7 days. [facility] lactulose (CHRONULAC) 20 gram/30 mL solution 2022-07 00:00: 00 06-11 23:59 :00 No 20g Q.[id number] 3D Take 30 mLs (20 g total) by mouth 3 (three) times daily for 7 days. [facility] ondansetron (ZOFRAN-ODT ) 4 MG disintegrat ing tablet 2022-07 00:00: 00 06-11 23:59 :00 No 4mg Take 1 tablet (4 mg total) by mouth every 6 (six) hours as needed for up to 7 days. [facility] lactulose (CHRONULAC) 20 gram/30 mL solution 2022-07 00:00: 00 06-11 23:59 :00 No 20g Q.[id number] 3D Take 30 mLs (20 g total) by mouth 3 (three) times daily for 7 days. [facility] ondansetron (ZOFRAN-ODT ) 4 MG disintegrat ing tablet 2022-07 00:00: 00 06-11 23:59 :00 No 4mg Take 1 tablet (4 mg total) by mouth every 6 (six) hours as needed for up to 7 days. [facility] lactulose (CHRONULAC) 20 gram/30 mL solution 2022-07 00:00: 00 06-11 23:59 :00 No 20g Q.[id number] 3D Take 30 mLs (20 g total) by mouth 3 (three) times daily for 7 days. [facility] ondansetron (ZOFRAN-ODT ) 4 MG disintegrat ing tablet 2022-07 00:00: 00 06-11 23:59 :00 No 4mg Take 1 tablet (4 mg total) by mouth every 6 (six) hours as needed for up to 7 days. [facility] metoprolol succinate (TOPROL-XL) 25 MG 24 hr tablet 2022-07 15:23: 22 Yes 25mg QD Take 1 tablet (25 mg total) by mouth daily. [facility] varenicline (CHANTIX) 1 mg tablet 2022-07 15:23: 22 Yes 1mg Q.5D Take 1 tablet (1 mg total) by mouth 2 (two) times daily Give with meals and with a full glass of water.. [facility] albuterol HFA (VENTOLIN HFA) 90 mcg/actuati on inhaler 2022-07 15:23: 22 Yes 1{puff} Inhale 1 puff by mouth via inhaler every 6 (six) hours as needed for Wheezing. [facility] fluticasone -umeclidin- vilanter (Trelegy Ellipta) 200-62.5-25 mcg DsDv 2022-07 15:23: 22 Yes QD Inhale by mouth via inhaler daily. [facility] atorvastati n (LIPITOR) 20 MG tablet 2022-07 15:23: 22 Yes 20mg QD Take 1 tablet (20 mg total) by mouth daily. [facility] acetaminoph en-codeine (TYLENOL #3) 300-30 mg per tablet 2022-07 15:23: 22 Yes 1{tbl} Take 1 tablet by mouth every 4 (four) hours as needed for Pain. [facility] acetaminoph en-codeine (TYLENOL #3) 300-30 mg per tablet 2022-07 09:42: 02 Yes 1{tbl} Take 1 tablet by mouth every 4 (four) hours as needed for Pain. Max Daily Amount: 6 tablets [facility] acetaminoph en-codeine (TYLENOL #3) 300-30 mg per tablet 2022-07 09:42: 02 Yes 1{tbl} Take 1 tablet by mouth every 4 (four) hours as needed for Pain. Max Daily Amount: 6 tablets [facility] varenicline (CHANTIX) 1 mg tablet 2022-07 09:40: 04 Yes 1mg Q.5D Take 1 tablet (1 mg total) by mouth 2 (two) times daily Give with meals and with a full glass of water.. [facility] albuterol HFA (VENTOLIN HFA) 90 mcg/actuati on inhaler 2022-07 09:40: 04 Yes 1{puff} Inhale 1 puff by mouth via inhaler every 6 (six) hours as needed for Wheezing. [facility] fluticasone -umeclidin- vilanter (Trelegy Ellipta) 200-62.5-25 mcg DsDv 2022-07 09:40: 04 Yes QD Inhale by mouth via inhaler daily. [facility] atorvastati n (LIPITOR) 20 MG tablet 2022-07 09:40: 04 Yes 20mg QD Take 1 tablet (20 mg total) by mouth daily. [facility] varenicline (CHANTIX) 1 mg tablet 2022-07 09:40: 04 Yes 1mg Q.5D Take 1 tablet (1 mg total) by mouth 2 (two) times daily Give with meals and with a full glass of water.. [facility] albuterol HFA (VENTOLIN HFA) 90 mcg/actuati on inhaler 2022-07 09:40: 04 Yes 1{puff} Inhale 1 puff by mouth via inhaler every 6 (six) hours as needed for Wheezing. [facility] fluticasone -umeclidin- vilanter (Trelegy Ellipta) 200-62.5-25 mcg DsDv 2022-07 09:40: 04 Yes QD Inhale by mouth via inhaler daily. [facility] atorvastati n (LIPITOR) 20 MG tablet 2022-07 09:40: 04 Yes 20mg QD Take 1 tablet (20 mg total) by mouth daily. [facility] metoprolol succinate (TOPROL-XL) 25 MG 24 hr tablet 2022-07 09:13: 28 Yes 25mg QD Take 1 tablet (25 mg total) by mouth daily. [facility] metoprolol succinate (TOPROL-XL) 25 MG 24 hr tablet 2022-07 1-07 09:13: 28 Yes 25mg QD Take 1 tablet (25 mg total) by mouth daily. [facility] furosemide (LASIX) 20 MG tablet -15 00:00: 00 04-02 23:59 :00 No 20mg QD Take 1 tablet (20 mg total) by mouth daily. [facility] furosemide (LASIX) 20 MG tablet -15 00:00: 00 04-02 23:59 :00 No 20mg QD Take 1 tablet (20 mg total) by mouth daily. [facility] furosemide (LASIX) 20 MG tablet 04-03 00:00: 00 04-02 23:59 :00 No 20mg QD Take 1 tablet (20 mg total) by mouth daily. [facility] DULoxetine (CYMBALTA) 30 MG capsule 04-03 00:00: 00 04-02 23:59 :00 No 30mg QD Take 1 capsule (30 mg total) by mouth daily. [facility] furosemide (LASIX) 20 MG tablet 04-03 00:00: 00 04-02 23:59 :00 No 20mg QD Take 1 tablet (20 mg total) by mouth daily. [facility] lisinopriL (PRINIVIL,Z ESTRIL) 5 MG tablet 04-03 00:00: 00 04-02 23:59 :00 No 5mg QD Take 1 tablet (5 mg total) by mouth daily. [facility] furosemide (LASIX) 20 MG tablet -15 00:00: 00 04-02 23:59 :00 No 20mg QD Take 1 tablet (20 mg total) by mouth daily. [facility] furosemide (LASIX) 20 MG tablet -15 00:00: 00 04-02 23:59 :00 No 20mg QD Take 1 tablet (20 mg total) by mouth daily. [facility] furosemide (LASIX) 20 MG tablet 2023-0 9-15 00:00: 00 04-02 23:59 :00 No 20mg QD Take 1 tablet (20 mg total) by mouth daily. [facility] furosemide (LASIX) 20 MG tablet 2022-0 9-15 00:00: 00 04-02 23:59 :00 No 20mg QD Take 1 tablet (20 mg total) by mouth daily. [facility] furosemide (LASIX) 20 MG tablet 0 -15 00:00: 00 04-02 23:59 :00 No 20mg QD Take 1 tablet (20 mg total) by mouth daily. [facility] DULoxetine (CYMBALTA) 30 MG capsule -15 00:00: 00 04-02 23:59 :00 No 30mg QD Take 1 capsule (30 mg total) by mouth daily. [facility] lisinopriL (PRINIVIL,Z ESTRIL) 5 MG tablet -15 00:00: 00 04-02 23:59 :00 No 5mg QD Take 1 tablet (5 mg total) by mouth daily. [facility] furosemide (LASIX) 20 MG tablet 0 -15 00:00: 00 04-02 23:59 :00 No 20mg QD Take 1 tablet (20 mg total) by mouth daily. [facility] DULoxetine (CYMBALTA) 30 MG capsule 0 -15 00:00: 00 04-02 23:59 :00 No 30mg QD Take 1 capsule (30 mg total) by mouth daily. [facility] lisinopriL (PRINIVIL,Z ESTRIL) 5 MG tablet 2022-0 9-15 00:00: 00 04-02 23:59 :00 No 5mg QD Take 1 tablet (5 mg total) by mouth daily. [facility] furosemide (LASIX) 20 MG tablet 2022-0 9-15 00:00: 00 04-02 23:59 :00 No 20mg QD Take 1 tablet (20 mg total) by mouth daily. [facility] DULoxetine (CYMBALTA) 30 MG capsule 2023-0 9-15 00:00: 00 04-02 23:59 :00 No 30mg QD Take 1 capsule (30 mg total) by mouth daily. [facility] lisinopriL (PRINIVIL,Z ESTRIL) 5 MG tablet 2022-0 9-15 00:00: 00 04-02 23:59 :00 No 5mg QD Take 1 tablet (5 mg total) by mouth daily. [facility] furosemide (LASIX) 20 MG tablet 2022-0 9-15 00:00: 00 04-02 23:59 :00 No 20mg QD Take 1 tablet (20 mg total) by mouth daily. [facility] DULoxetine (CYMBALTA) 30 MG capsule 2022-0 -15 00:00: 00 04-02 23:59 :00 No 30mg QD Take 1 capsule (30 mg total) by mouth daily. [facility] lisinopriL (PRINIVIL,Z ESTRIL) 5 MG tablet 2022-0 -15 00:00: 00 04-02 23:59 :00 No 5mg QD Take 1 tablet (5 mg total) by mouth daily. [facility] furosemide (LASIX) 20 MG tablet 2022-0 -15 00:00: 00 04-02 23:59 :00 No 20mg QD Take 1 tablet (20 mg total) by mouth daily. [facility] DULoxetine (CYMBALTA) 30 MG capsule 2022-0 -15 00:00: 00 04-02 23:59 :00 No 30mg QD Take 1 capsule (30 mg total) by mouth daily. [facility] lisinopriL (PRINIVIL,Z ESTRIL) 5 MG tablet 2022-0 9-15 00:00: 00 04-02 23:59 :00 No 5mg QD Take 1 tablet (5 mg total) by mouth daily. [facility] furosemide (LASIX) 20 MG tablet 2022-0 9-15 00:00: 00 04-02 23:59 :00 No 20mg QD Take 1 tablet (20 mg total) by mouth daily. [facility] DULoxetine (CYMBALTA) 30 MG capsule 2022-0 -15 00:00: 00 04-02 23:59 :00 No 30mg QD Take 1 capsule (30 mg total) by mouth daily. [facility] lisinopriL (PRINIVIL,Z ESTRIL) 5 MG tablet 2022-0 -15 00:00: 00 04-02 23:59 :00 No 5mg QD Take 1 tablet (5 mg total) by mouth daily. [facility] furosemide (LASIX) 20 MG tablet 2022-0 15 00:00: 00 04-02 23:59 :00 No 20mg QD Take 1 tablet (20 mg total) by mouth daily. [facility] DULoxetine (CYMBALTA) 30 MG capsule 2022-0 04-03 00:00: 00 04-02 23:59 :00 No 30mg QD Take 1 capsule (30 mg total) by mouth daily. [facility] lisinopriL (PRINIVIL,Z ESTRIL) 5 MG tablet 2022-0 15 00:00: 00 04-02 23:59 :00 No 5mg QD Take 1 tablet (5 mg total) by mouth daily. [facility] furosemide (LASIX) 20 MG tablet 0 15 00:00: 00 04-02 23:59 :00 No 20mg QD Take 1 tablet (20 mg total) by mouth daily. [facility] DULoxetine (CYMBALTA) 30 MG capsule 2022-0 15 00:00: 00 04-02 23:59 :00 No 30mg QD Take 1 capsule (30 mg total) by mouth daily. [facility] lisinopriL (PRINIVIL,Z ESTRIL) 5 MG tablet 2022-0 -15 00:00: 00 04-02 23:59 :00 No 5mg QD Take 1 tablet (5 mg total) by mouth daily. [facility] furosemide (LASIX) 20 MG tablet 2022-0 -15 00:00: 00 04-02 23:59 :00 No 20mg QD Take 1 tablet (20 mg total) by mouth daily. [facility] DULoxetine (CYMBALTA) 30 MG capsule 2022-0 9-15 00:00: 00 04-02 23:59 :00 No 30mg QD Take 1 capsule (30 mg total) by mouth daily. [facility] furosemide (LASIX) 20 MG tablet 2022-0 9-15 00:00: 00 04-02 23:59 :00 No 20mg QD Take 1 tablet (20 mg total) by mouth daily. [facility] DULoxetine (CYMBALTA) 30 MG capsule 0 -15 00:00: 00 04-02 23:59 :00 No 30mg QD Take 1 capsule (30 mg total) by mouth daily. [facility] furosemide (LASIX) 20 MG tablet 0 -15 00:00: 00 04-02 23:59 :00 No 20mg QD Take 1 tablet (20 mg total) by mouth daily. [facility] DULoxetine (CYMBALTA) 30 MG capsule 0 -15 00:00: 00 04-02 23:59 :00 No 30mg QD Take 1 capsule (30 mg total) by mouth daily. [facility] furosemide (LASIX) 20 MG tablet 0 -15 00:00: 00 04-02 23:59 :00 No 20mg QD Take 1 tablet (20 mg total) by mouth daily. [facility] DULoxetine (CYMBALTA) 30 MG capsule 2022-0 -15 00:00: 00 04-02 23:59 :00 No 30mg QD Take 1 capsule (30 mg total) by mouth daily. [facility] furosemide (LASIX) 20 MG tablet 2022-0 -15 00:00: 00 04-02 23:59 :00 No 20mg QD Take 1 tablet (20 mg total) by mouth daily. [facility] furosemide (LASIX) 20 MG tablet 2022-0 9-15 00:00: 00 04-02 23:59 :00 No 20mg QD Take 1 tablet (20 mg total) by mouth daily. [facility] aspirin 81 MG EC tablet 04-03 00:00: 00 07-02 23:59 :00 No 81mg QD Take 1 tablet (81 mg total) by mouth daily for 90 days. [facility] divalproex (DEPAKOTE) 500 MG EC tablet 04-03 00:00: 00 07-02 23:59 :00 No 500mg Q.5D Take 1 tablet (500 mg total) by mouth 2 (two) times daily for 90 days. [facility] gabapentin (NEURONTIN) 300 MG capsule 04-03 00:00: 00 07-02 23:59 :00 No 300mg Q.[id number] 3D Take 1 capsule (300 mg total) by mouth 3 (three) times daily for 90 days. [facility] aspirin 81 MG EC tablet 04-03 00:00: 00 07-02 23:59 :00 No 81mg QD Take 1 tablet (81 mg total) by mouth daily for 90 days. [facility] divalproex (DEPAKOTE) 500 MG EC tablet 04-03 00:00: 00 07-02 23:59 :00 No 500mg Q.5D Take 1 tablet (500 mg total) by mouth 2 (two) times daily for 90 days. [facility] gabapentin (NEURONTIN) 300 MG capsule 04-03 00:00: 00 07-02 23:59 :00 No 300mg Q.[id number] 3D Take 1 capsule (300 mg total) by mouth 3 (three) times daily for 90 days. [facility] aspirin 81 MG EC tablet 04-03 00:00: 00 07-02 23:59 :00 No 81mg QD Take 1 tablet (81 mg total) by mouth daily for 90 days. [facility] divalproex (DEPAKOTE) 500 MG EC tablet 04-03 00:00: 00 07-02 23:59 :00 No 500mg Q.5D Take 1 tablet (500 mg total) by mouth 2 (two) times daily for 90 days. [facility] gabapentin (NEURONTIN) 300 MG capsule 04-03 00:00: 00 07-02 23:59 :00 No 300mg Q.[id number] 3D Take 1 capsule (300 mg total) by mouth 3 (three) times daily for 90 days. [facility] aspirin 81 MG EC tablet 04-03 00:00: 00 07-02 23:59 :00 No 81mg QD Take 1 tablet (81 mg total) by mouth daily for 90 days. [facility] divalproex (DEPAKOTE) 500 MG EC tablet 04-03 00:00: 00 07-02 23:59 :00 No 500mg Q.5D Take 1 tablet (500 mg total) by mouth 2 (two) times daily for 90 days. [facility] gabapentin (NEURONTIN) 300 MG capsule 04-03 00:00: 00 07-02 23:59 :00 No 300mg Q.[id number] 3D Take 1 capsule (300 mg total) by mouth 3 (three) times daily for 90 days. [facility] aspirin 81 MG EC tablet 04-03 00:00: 00 07-02 23:59 :00 No 81mg QD Take 1 tablet (81 mg total) by mouth daily for 90 days. [facility] divalproex (DEPAKOTE) 500 MG EC tablet 04-03 00:00: 00 07-02 23:59 :00 No 500mg Q.5D Take 1 tablet (500 mg total) by mouth 2 (two) times daily for 90 days. [facility] gabapentin (NEURONTIN) 300 MG capsule 04-03 00:00: 00 07-02 23:59 :00 No 300mg Q.[id number] 3D Take 1 capsule (300 mg total) by mouth 3 (three) times daily for 90 days. [facility] aspirin 81 MG EC tablet 04-03 00:00: 00 07-02 23:59 :00 No 81mg QD Take 1 tablet (81 mg total) by mouth daily for 90 days. [facility] divalproex (DEPAKOTE) 500 MG EC tablet 04-03 00:00: 00 07-02 23:59 :00 No 500mg Q.5D Take 1 tablet (500 mg total) by mouth 2 (two) times daily for 90 days. [facility] gabapentin (NEURONTIN) 300 MG capsule 04-03 00:00: 00 07-02 23:59 :00 No 300mg Q.[id number] 3D Take 1 capsule (300 mg total) by mouth 3 (three) times daily for 90 days. [facility] aspirin 81 MG EC tablet 04-03 00:00: 00 07-02 23:59 :00 No 81mg QD Take 1 tablet (81 mg total) by mouth daily for 90 days. [facility] divalproex (DEPAKOTE) 500 MG EC tablet 04-03 00:00: 00 07-02 23:59 :00 No 500mg Q.5D Take 1 tablet (500 mg total) by mouth 2 (two) times daily for 90 days. [facility] gabapentin (NEURONTIN) 300 MG capsule 04-03 00:00: 00 07-02 23:59 :00 No 300mg Q.[id number] 3D Take 1 capsule (300 mg total) by mouth 3 (three) times daily for 90 days. [facility] aspirin 81 MG EC tablet 04-03 00:00: 00 07-02 23:59 :00 No 81mg QD Take 1 tablet (81 mg total) by mouth daily for 90 days. [facility] divalproex (DEPAKOTE) 500 MG EC tablet 04-03 00:00: 00 07-02 23:59 :00 No 500mg Q.5D Take 1 tablet (500 mg total) by mouth 2 (two) times daily for 90 days. [facility] gabapentin (NEURONTIN) 300 MG capsule 04-03 00:00: 00 07-02 23:59 :00 No 300mg Q.[id number] 3D Take 1 capsule (300 mg total) by mouth 3 (three) times daily for 90 days. [facility] aspirin 81 MG EC tablet 04-03 00:00: 00 07-02 23:59 :00 No 81mg QD Take 1 tablet (81 mg total) by mouth daily for 90 days. [facility] divalproex (DEPAKOTE) 500 MG EC tablet 04-03 00:00: 00 07-02 23:59 :00 No 500mg Q.5D Take 1 tablet (500 mg total) by mouth 2 (two) times daily for 90 days. [facility] gabapentin (NEURONTIN) 300 MG capsule 04-03 00:00: 00 07-02 23:59 :00 No 300mg Q.[id number] 3D Take 1 capsule (300 mg total) by mouth 3 (three) times daily for 90 days. [facility] aspirin 81 MG EC tablet 04-03 00:00: 00 07-02 23:59 :00 No 81mg QD Take 1 tablet (81 mg total) by mouth daily for 90 days. [facility] divalproex (DEPAKOTE) 500 MG EC tablet 04-03 00:00: 00 07-02 23:59 :00 No 500mg Q.5D Take 1 tablet (500 mg total) by mouth 2 (two) times daily for 90 days. [facility] gabapentin (NEURONTIN) 300 MG capsule 04-03 00:00: 00 07-02 23:59 :00 No 300mg Q.[id number] 3D Take 1 capsule (300 mg total) by mouth 3 (three) times daily for 90 days. [facility] aspirin 81 MG EC tablet 04-03 00:00: 00 07-02 23:59 :00 No 81mg QD Take 1 tablet (81 mg total) by mouth daily for 90 days. [facility] divalproex (DEPAKOTE) 500 MG EC tablet 04-03 00:00: 00 07-02 23:59 :00 No 500mg Q.5D Take 1 tablet (500 mg total) by mouth 2 (two) times daily for 90 days. [facility] gabapentin (NEURONTIN) 300 MG capsule 04-03 00:00: 00 07-02 23:59 :00 No 300mg Q.[id number] 3D Take 1 capsule (300 mg total) by mouth 3 (three) times daily for 90 days. [facility] aspirin 81 MG EC tablet 04-03 00:00: 00 07-02 23:59 :00 No 81mg QD Take 1 tablet (81 mg total) by mouth daily for 90 days. [facility] divalproex (DEPAKOTE) 500 MG EC tablet 04-03 00:00: 00 07-02 23:59 :00 No 500mg Q.5D Take 1 tablet (500 mg total) by mouth 2 (two) times daily for 90 days. [facility] gabapentin (NEURONTIN) 300 MG capsule 04-03 00:00: 00 07-02 23:59 :00 No 300mg Q.[id number] 3D Take 1 capsule (300 mg total) by mouth 3 (three) times daily for 90 days. [facility] aspirin 81 MG EC tablet 04-03 00:00: 00 07-02 23:59 :00 No 81mg QD Take 1 tablet (81 mg total) by mouth daily for 90 days. [facility] divalproex (DEPAKOTE) 500 MG EC tablet 04-03 00:00: 00 07-02 23:59 :00 No 500mg Q.5D Take 1 tablet (500 mg total) by mouth 2 (two) times daily for 90 days. [facility] gabapentin (NEURONTIN) 300 MG capsule 04-03 00:00: 00 07-02 23:59 :00 No 300mg Q.[id number] 3D Take 1 capsule (300 mg total) by mouth 3 (three) times daily for 90 days. [facility] aspirin 81 MG EC tablet 15 00:00: 00 07-02 23:59 :00 No 81mg QD Take 1 tablet (81 mg total) by mouth daily for 90 days. [facility] divalproex (DEPAKOTE) 500 MG EC tablet 15 00:00: 00 07-02 23:59 :00 No 500mg Q.5D Take 1 tablet (500 mg total) by mouth 2 (two) times daily for 90 days. [facility] gabapentin (NEURONTIN) 300 MG capsule 15 00:00: 00 07-02 23:59 :00 No 300mg Q.[id number] 3D Take 1 capsule (300 mg total) by mouth 3 (three) times daily for 90 days. [facility] aspirin 81 MG EC tablet 04-03 00:00: 00 07-02 23:59 :00 No 81mg QD Take 1 tablet (81 mg total) by mouth daily for 90 days. [facility] divalproex (DEPAKOTE) 500 MG EC tablet 04-03 00:00: 00 07-02 23:59 :00 No 500mg Q.5D Take 1 tablet (500 mg total) by mouth 2 (two) times daily for 90 days. [facility] gabapentin (NEURONTIN) 300 MG capsule 15 00:00: 00 07-02 23:59 :00 No 300mg Q.[id number] 3D Take 1 capsule (300 mg total) by mouth 3 (three) times daily for 90 days. [facility] aspirin 81 MG EC tablet 15 00:00: 00 07-02 23:59 :00 No 81mg QD Take 1 tablet (81 mg total) by mouth daily for 90 days. [facility] divalproex (DEPAKOTE) 500 MG EC tablet -15 00:00: 00 07-02 23:59 :00 No 500mg Q.5D Take 1 tablet (500 mg total) by mouth 2 (two) times daily for 90 days. [facility] gabapentin (NEURONTIN) 300 MG capsule 04-03 00:00: 00 07-02 23:59 :00 No 300mg Q.[id number] 3D Take 1 capsule (300 mg total) by mouth 3 (three) times daily for 90 days. [facility] aspirin 81 MG EC tablet 04-03 00:00: 00 07-02 23:59 :00 No 81mg QD Take 1 tablet (81 mg total) by mouth daily for 90 days. [facility] divalproex (DEPAKOTE) 500 MG EC tablet 04-03 00:00: 00 07-02 23:59 :00 No 500mg Q.5D Take 1 tablet (500 mg total) by mouth 2 (two) times daily for 90 days. [facility] gabapentin (NEURONTIN) 300 MG capsule 04-03 00:00: 00 07-02 23:59 :00 No 300mg Q.[id number] 3D Take 1 capsule (300 mg total) by mouth 3 (three) times daily for 90 days. [facility] aspirin 81 MG EC tablet 04-03 00:00: 00 07-02 23:59 :00 No 81mg QD Take 1 tablet (81 mg total) by mouth daily for 90 days. [facility] divalproex (DEPAKOTE) 500 MG EC tablet 04-03 00:00: 00 07-02 23:59 :00 No 500mg Q.5D Take 1 tablet (500 mg total) by mouth 2 (two) times daily for 90 days. [facility] gabapentin (NEURONTIN) 300 MG capsule 04-03 00:00: 00 07-02 23:59 :00 No 300mg Q.[id number] 3D Take 1 capsule (300 mg total) by mouth 3 (three) times daily for 90 days. [facility] aspirin 81 MG EC tablet 04-03 00:00: 00 07-02 23:59 :00 No 81mg QD Take 1 tablet (81 mg total) by mouth daily for 90 days. [facility] divalproex (DEPAKOTE) 500 MG EC tablet 04-03 00:00: 00 07-02 23:59 :00 No 500mg Q.5D Take 1 tablet (500 mg total) by mouth 2 (two) times daily for 90 days. [facility] gabapentin (NEURONTIN) 300 MG capsule 04-03 00:00: 00 07-02 23:59 :00 No 300mg Q.[id number] 3D Take 1 capsule (300 mg total) by mouth 3 (three) times daily for 90 days. [facility] aspirin 81 MG EC tablet 04-03 00:00: 00 07-02 23:59 :00 No 81mg QD Take 1 tablet (81 mg total) by mouth daily for 90 days. [facility] divalproex (DEPAKOTE) 500 MG EC tablet 04-03 00:00: 00 07-02 23:59 :00 No 500mg Q.5D Take 1 tablet (500 mg total) by mouth 2 (two) times daily for 90 days. [facility] gabapentin (NEURONTIN) 300 MG capsule 04-03 00:00: 00 07-02 23:59 :00 No 300mg Q.[id number] 3D Take 1 capsule (300 mg total) by mouth 3 (three) times daily for 90 days. [facility] aspirin 81 MG EC tablet 04-03 00:00: 00 07-02 23:59 :00 No 81mg QD Take 1 tablet (81 mg total) by mouth daily for 90 days. [facility] divalproex (DEPAKOTE) 500 MG EC tablet 04-03 00:00: 00 07-02 23:59 :00 No 500mg Q.5D Take 1 tablet (500 mg total) by mouth 2 (two) times daily for 90 days. [facility] gabapentin (NEURONTIN) 300 MG capsule 2023-0 9-15 00:00: 00 07-02 23:59 :00 No 300mg Q.[id number] 3D Take 1 capsule (300 mg total) by mouth 3 (three) times daily for 90 days. [facility] aspirin 81 MG EC tablet 04-03 00:00: 00 07-02 23:59 :00 No 81mg QD Take 1 tablet (81 mg total) by mouth daily for 90 days. [facility] divalproex (DEPAKOTE) 500 MG EC tablet 04-03 00:00: 00 07-02 23:59 :00 No 500mg Q.5D Take 1 tablet (500 mg total) by mouth 2 (two) times daily for 90 days. [facility] gabapentin (NEURONTIN) 300 MG capsule 04-03 00:00: 00 07-02 23:59 :00 No 300mg Q.[id number] 3D Take 1 capsule (300 mg total) by mouth 3 (three) times daily for 90 days. [facility] DULoxetine (CYMBALTA) 30 MG capsule 04-03 00:00: 00 06-16 00:00 :00 No 30mg QD Take 1 capsule (30 mg total) by mouth daily. [facility] DULoxetine (CYMBALTA) 30 MG capsule 04-03 00:00: 00 06-16 00:00 :00 No 30mg QD Take 1 capsule (30 mg total) by mouth daily. [facility] DULoxetine (CYMBALTA) 30 MG capsule 04-03 00:00: 00 06-16 00:00 :00 No 30mg QD Take 1 capsule (30 mg total) by mouth daily. [facility] DULoxetine (CYMBALTA) 30 MG capsule 04-03 00:00: 00 06-16 00:00 :00 No 30mg QD Take 1 capsule (30 mg total) by mouth daily. [facility] DULoxetine (CYMBALTA) 30 MG capsule 04-03 00:00: 00 06-16 00:00 :00 No 30mg QD Take 1 capsule (30 mg total) by mouth daily. [facility] DULoxetine (CYMBALTA) 30 MG capsule 2022-0 9-15 00:00: 00 06-16 00:00 :00 No 30mg QD Take 1 capsule (30 mg total) by mouth daily. [facility] DULoxetine (CYMBALTA) 30 MG capsule 2022-0 9-15 00:00: 00 06-16 00:00 :00 No 30mg QD Take 1 capsule (30 mg total) by mouth daily. [facility] DULoxetine (CYMBALTA) 30 MG capsule 2022-0 9-15 00:00: 00 06-16 00:00 :00 No 30mg QD Take 1 capsule (30 mg total) by mouth daily. [facility] DULoxetine (CYMBALTA) 30 MG capsule 2022-0 9-15 00:00: 00 06-16 00:00 :00 No 30mg QD Take 1 capsule (30 mg total) by mouth daily. [facility] lisinopriL (PRINIVIL,Z ESTRIL) 5 MG tablet 2022-0 9-15 00:00: 00 05-28 00:00 :00 No 5mg QD Take 1 tablet (5 mg total) by mouth daily. [facility] lisinopriL (PRINIVIL,Z ESTRIL) 5 MG tablet 2022-0 9-15 00:00: 00 05-28 00:00 :00 No 5mg QD Take 1 tablet (5 mg total) by mouth daily. [facility] lisinopriL (PRINIVIL,Z ESTRIL) 5 MG tablet 2022-0 9-15 00:00: 00 05-28 00:00 :00 No 5mg QD Take 1 tablet (5 mg total) by mouth daily. [facility] lisinopriL (PRINIVIL,Z ESTRIL) 5 MG tablet 2022-0 9-15 00:00: 00 05-28 00:00 :00 No 5mg QD Take 1 tablet (5 mg total) by mouth daily. [facility] lisinopriL (PRINIVIL,Z ESTRIL) 5 MG tablet 2022-0 9-15 00:00: 00 05-28 00:00 :00 No 5mg QD Take 1 tablet (5 mg total) by mouth daily. [facility] lisinopriL (PRINIVIL,Z ESTRIL) 5 MG tablet 2022-0 9-15 00:00: 00 05-28 00:00 :00 No 5mg QD Take 1 tablet (5 mg total) by mouth daily. [facility] lisinopriL (PRINIVIL,Z ESTRIL) 5 MG tablet 2022-0 9-15 00:00: 00 05-28 00:00 :00 No 5mg QD Take 1 tablet (5 mg total) by mouth daily. [facility] lisinopriL (PRINIVIL,Z ESTRIL) 5 MG tablet 2022-0 9-15 00:00: 00 05-28 00:00 :00 No 5mg QD Take 1 tablet (5 mg total) by mouth daily. [facility] lisinopriL (PRINIVIL,Z ESTRIL) 5 MG tablet 2022-0 9-15 00:00: 00 05-28 00:00 :00 No 5mg QD Take 1 tablet (5 mg total) by mouth daily. [facility] lisinopriL (PRINIVIL,Z ESTRIL) 5 MG tablet 2022-0 9-15 00:00: 00 05-28 00:00 :00 No 5mg QD Take 1 tablet (5 mg total) by mouth daily. [facility] lisinopriL (PRINIVIL,Z ESTRIL) 5 MG tablet 2022-0 9-15 00:00: 00 05-28 00:00 :00 No 5mg QD Take 1 tablet (5 mg total) by mouth daily. [facility] lisinopriL (PRINIVIL,Z ESTRIL) 5 MG tablet 2022-0 9-15 00:00: 00 05-28 00:00 :00 No 5mg QD Take 1 tablet (5 mg total) by mouth daily. [facility] lisinopriL (PRINIVIL,Z ESTRIL) 5 MG tablet 15 00:00: 00 05-28 00:00 :00 No 5mg QD Take 1 tablet (5 mg total) by mouth daily. [facility] clonazePAM (KlonoPIN) 0.5 MG tablet 04-03 00:00: 00 05-03 23:59 :00 No .25mg Take 0.5 tablets (0.25 mg total) by mouth 2 (two) times daily as needed for Anxiety for up to 30 days. Max Daily Amount: 0.5 mg [facility] clonazePAM (KlonoPIN) 0.5 MG tablet 04-03 00:00: 00 05-03 23:59 :00 No .25mg Take 0.5 tablets (0.25 mg total) by mouth 2 (two) times daily as needed for Anxiety for up to 30 days. Max Daily Amount: 0.5 mg [facility] clonazePAM (KlonoPIN) 0.5 MG tablet 04-03 00:00: 00 05-03 23:59 :00 No .25mg Take 0.5 tablets (0.25 mg total) by mouth 2 (two) times daily as needed for Anxiety for up to 30 days. Max Daily Amount: 0.5 mg [facility] clonazePAM (KlonoPIN) 0.5 MG tablet 04-03 00:00: 00 05-03 23:59 :00 No .25mg Take 0.5 tablets (0.25 mg total) by mouth 2 (two) times daily as needed for Anxiety for up to 30 days. Max Daily Amount: 0.5 mg [facility] clonazePAM (KlonoPIN) 0.5 MG tablet 04-03 00:00: 00 05-03 23:59 :00 No .25mg Take 0.5 tablets (0.25 mg total) by mouth 2 (two) times daily as needed for Anxiety for up to 30 days. Max Daily Amount: 0.5 mg [facility] clonazePAM (KlonoPIN) 0.5 MG tablet 04-03 00:00: 00 05-03 23:59 :00 No .25mg Take 0.5 tablets (0.25 mg total) by mouth 2 (two) times daily as needed for Anxiety for up to 30 days. Max Daily Amount: 0.5 mg [facility] clonazePAM (KlonoPIN) 0.5 MG tablet 15 00:00: 00 05-03 23:59 :00 No .25mg Take 0.5 tablets (0.25 mg total) by mouth 2 (two) times daily as needed for Anxiety for up to 30 days. Max Daily Amount: 0.5 mg [facility] clonazePAM (KlonoPIN) 0.5 MG tablet 04-03 00:00: 00 05-03 23:59 :00 No .25mg Take 0.5 tablets (0.25 mg total) by mouth 2 (two) times daily as needed for Anxiety for up to 30 days. Max Daily Amount: 0.5 mg [facility] clonazePAM (KlonoPIN) 0.5 MG tablet 0 04-03 00:00: 00 05-03 23:59 :00 No .25mg Take 0.5 tablets (0.25 mg total) by mouth 2 (two) times daily as needed for Anxiety for up to 30 days. Max Daily Amount: 0.5 mg [facility] clonazePAM (KlonoPIN) 0.5 MG tablet 04-03 00:00: 00 05-03 23:59 :00 No .25mg Take 0.5 tablets (0.25 mg total) by mouth 2 (two) times daily as needed for Anxiety for up to 30 days. Max Daily Amount: 0.5 mg [facility] clonazePAM (KlonoPIN) 0.5 MG tablet 0 15 00:00: 00 05-03 23:59 :00 No .25mg Take 0.5 tablets (0.25 mg total) by mouth 2 (two) times daily as needed for Anxiety for up to 30 days. Max Daily Amount: 0.5 mg [facility] clonazePAM (KlonoPIN) 0.5 MG tablet 0 15 00:00: 00 05-03 23:59 :00 No .25mg Take 0.5 tablets (0.25 mg total) by mouth 2 (two) times daily as needed for Anxiety for up to 30 days. Max Daily Amount: 0.5 mg [facility] clonazePAM (KlonoPIN) 0.5 MG tablet 15 00:00: 00 05-03 23:59 :00 No .25mg Take 0.5 tablets (0.25 mg total) by mouth 2 (two) times daily as needed for Anxiety for up to 30 days. Max Daily Amount: 0.5 mg [facility] clonazePAM (KlonoPIN) 0.5 MG tablet 04-03 00:00: 00 05-03 23:59 :00 No .25mg Take 0.5 tablets (0.25 mg total) by mouth 2 (two) times daily as needed for Anxiety for up to 30 days. Max Daily Amount: 0.5 mg [facility] clonazePAM (KlonoPIN) 0.5 MG tablet 04-03 00:00: 00 05-03 23:59 :00 No .25mg Take 0.5 tablets (0.25 mg total) by mouth 2 (two) times daily as needed for Anxiety for up to 30 days. Max Daily Amount: 0.5 mg [facility] clonazePAM (KlonoPIN) 0.5 MG tablet 04-03 00:00: 00 05-03 23:59 :00 No .25mg Take 0.5 tablets (0.25 mg total) by mouth 2 (two) times daily as needed for Anxiety for up to 30 days. Max Daily Amount: 0.5 mg [facility] clonazePAM (KlonoPIN) 0.5 MG tablet 0 15 00:00: 00 05-03 23:59 :00 No .25mg Take 0.5 tablets (0.25 mg total) by mouth 2 (two) times daily as needed for Anxiety for up to 30 days. Max Daily Amount: 0.5 mg [facility] clonazePAM (KlonoPIN) 0.5 MG tablet 0 15 00:00: 00 05-03 23:59 :00 No .25mg Take 0.5 tablets (0.25 mg total) by mouth 2 (two) times daily as needed for Anxiety for up to 30 days. Max Daily Amount: 0.5 mg [facility] clonazePAM (KlonoPIN) 0.5 MG tablet 04-03 00:00: 00 05-03 23:59 :00 No .25mg Take 0.5 tablets (0.25 mg total) by mouth 2 (two) times daily as needed for Anxiety for up to 30 days. Max Daily Amount: 0.5 mg [facility] clonazePAM (KlonoPIN) 0.5 MG tablet 04-03 00:00: 00 05-03 23:59 :00 No .25mg Take 0.5 tablets (0.25 mg total) by mouth 2 (two) times daily as needed for Anxiety for up to 30 days. Max Daily Amount: 0.5 mg [facility] clonazePAM (KlonoPIN) 0.5 MG tablet 04-03 00:00: 00 05-03 23:59 :00 No .25mg Take 0.5 tablets (0.25 mg total) by mouth 2 (two) times daily as needed for Anxiety for up to 30 days. Max Daily Amount: 0.5 mg [facility] clonazePAM (KlonoPIN) 0.5 MG tablet 04-03 00:00: 00 05-03 23:59 :00 No .25mg Take 0.5 tablets (0.25 mg total) by mouth 2 (two) times daily as needed for Anxiety for up to 30 days. Max Daily Amount: 0.5 mg [facility] HYDROcodone -acetaminop hen (NORCO 10-325) 10-325 mg per tablet 04-03 00:00: 00 04-13 23:59 :00 No 1{tbl} Take 1 tablet by mouth every 6 (six) hours as needed for up to 10 days. Max Daily Amount: 4 tablets [facility] methocarbam oL (ROBAXIN) 500 MG tablet 04-03 00:00: 00 04-13 23:59 :00 No 500mg Q.25D Take 1 tablet (500 mg total) by mouth 4 (four) times daily for 10 days. [facility] HYDROcodone -acetaminop hen (NORCO 10-325) 10-325 mg per tablet 04-03 00:00: 00 04-13 23:59 :00 No 1{tbl} Take 1 tablet by mouth every 6 (six) hours as needed for up to 10 days. Max Daily Amount: 4 tablets [facility] methocarbam oL (ROBAXIN) 500 MG tablet 04-03 00:00: 00 04-13 23:59 :00 No 500mg Q.25D Take 1 tablet (500 mg total) by mouth 4 (four) times daily for 10 days. [facility] HYDROcodone -acetaminop hen (NORCO 10-325) 10-325 mg per tablet 04-03 00:00: 00 04-13 23:59 :00 No 1{tbl} Take 1 tablet by mouth every 6 (six) hours as needed for up to 10 days. Max Daily Amount: 4 tablets [facility] methocarbam oL (ROBAXIN) 500 MG tablet 04-03 00:00: 00 04-13 23:59 :00 No 500mg Q.25D Take 1 tablet (500 mg total) by mouth 4 (four) times daily for 10 days. [facility] HYDROcodone -acetaminop hen (NORCO 10-325) 10-325 mg per tablet 04-03 00:00: 00 04-13 23:59 :00 No 1{tbl} Take 1 tablet by mouth every 6 (six) hours as needed for up to 10 days. Max Daily Amount: 4 tablets [facility] methocarbam oL (ROBAXIN) 500 MG tablet 04-03 00:00: 00 04-13 23:59 :00 No 500mg Q.25D Take 1 tablet (500 mg total) by mouth 4 (four) times daily for 10 days. [facility] HYDROcodone -acetaminop hen (NORCO 10-325) 10-325 mg per tablet 04-03 00:00: 00 04-13 23:59 :00 No 1{tbl} Take 1 tablet by mouth every 6 (six) hours as needed for up to 10 days. Max Daily Amount: 4 tablets [facility] methocarbam oL (ROBAXIN) 500 MG tablet 04-03 00:00: 00 04-13 23:59 :00 No 500mg Q.25D Take 1 tablet (500 mg total) by mouth 4 (four) times daily for 10 days. [facility] HYDROcodone -acetaminop hen (NORCO 10-325) 10-325 mg per tablet 04-03 00:00: 00 04-13 23:59 :00 No 1{tbl} Take 1 tablet by mouth every 6 (six) hours as needed for up to 10 days. Max Daily Amount: 4 tablets [facility] methocarbam oL (ROBAXIN) 500 MG tablet 04-03 00:00: 00 04-13 23:59 :00 No 500mg Q.25D Take 1 tablet (500 mg total) by mouth 4 (four) times daily for 10 days. [facility] HYDROcodone -acetaminop hen (NORCO 10-325) 10-325 mg per tablet 04-03 00:00: 00 04-13 23:59 :00 No 1{tbl} Take 1 tablet by mouth every 6 (six) hours as needed for up to 10 days. Max Daily Amount: 4 tablets [facility] methocarbam oL (ROBAXIN) 500 MG tablet 04-03 00:00: 00 04-13 23:59 :00 No 500mg Q.25D Take 1 tablet (500 mg total) by mouth 4 (four) times daily for 10 days. [facility] HYDROcodone -acetaminop hen (NORCO 10-325) 10-325 mg per tablet 04-03 00:00: 00 04-13 23:59 :00 No 1{tbl} Take 1 tablet by mouth every 6 (six) hours as needed for up to 10 days. Max Daily Amount: 4 tablets [facility] methocarbam oL (ROBAXIN) 500 MG tablet 04-03 00:00: 00 04-13 23:59 :00 No 500mg Q.25D Take 1 tablet (500 mg total) by mouth 4 (four) times daily for 10 days. [facility] HYDROcodone -acetaminop hen (NORCO 10-325) 10-325 mg per tablet 04-03 00:00: 00 04-13 23:59 :00 No 1{tbl} Take 1 tablet by mouth every 6 (six) hours as needed for up to 10 days. Max Daily Amount: 4 tablets [facility] methocarbam oL (ROBAXIN) 500 MG tablet 04-03 00:00: 00 04-13 23:59 :00 No 500mg Q.25D Take 1 tablet (500 mg total) by mouth 4 (four) times daily for 10 days. [facility] HYDROcodone -acetaminop hen (NORCO 10-325) 10-325 mg per tablet 04-03 00:00: 00 04-13 23:59 :00 No 1{tbl} Take 1 tablet by mouth every 6 (six) hours as needed for up to 10 days. Max Daily Amount: 4 tablets [facility] methocarbam oL (ROBAXIN) 500 MG tablet 04-03 00:00: 00 04-13 23:59 :00 No 500mg Q.25D Take 1 tablet (500 mg total) by mouth 4 (four) times daily for 10 days. [facility] HYDROcodone -acetaminop hen (NORCO 10-325) 10-325 mg per tablet 04-03 00:00: 00 04-13 23:59 :00 No 1{tbl} Take 1 tablet by mouth every 6 (six) hours as needed for up to 10 days. Max Daily Amount: 4 tablets [facility] methocarbam oL (ROBAXIN) 500 MG tablet 04-03 00:00: 00 04-13 23:59 :00 No 500mg Q.25D Take 1 tablet (500 mg total) by mouth 4 (four) times daily for 10 days. [facility] HYDROcodone -acetaminop hen (NORCO 10-325) 10-325 mg per tablet 04-03 00:00: 00 04-13 23:59 :00 No 1{tbl} Take 1 tablet by mouth every 6 (six) hours as needed for up to 10 days. Max Daily Amount: 4 tablets [facility] methocarbam oL (ROBAXIN) 500 MG tablet 04-03 00:00: 00 04-13 23:59 :00 No 500mg Q.25D Take 1 tablet (500 mg total) by mouth 4 (four) times daily for 10 days. [facility] HYDROcodone -acetaminop hen (NORCO 10-325) 10-325 mg per tablet 04-03 00:00: 00 04-13 23:59 :00 No 1{tbl} Take 1 tablet by mouth every 6 (six) hours as needed for up to 10 days. Max Daily Amount: 4 tablets [facility] methocarbam oL (ROBAXIN) 500 MG tablet 04-03 00:00: 00 04-13 23:59 :00 No 500mg Q.25D Take 1 tablet (500 mg total) by mouth 4 (four) times daily for 10 days. [facility] HYDROcodone -acetaminop hen (NORCO 10-325) 10-325 mg per tablet 04-03 00:00: 00 04-13 23:59 :00 No 1{tbl} Take 1 tablet by mouth every 6 (six) hours as needed for up to 10 days. Max Daily Amount: 4 tablets [facility] methocarbam oL (ROBAXIN) 500 MG tablet 04-03 00:00: 00 04-13 23:59 :00 No 500mg Q.25D Take 1 tablet (500 mg total) by mouth 4 (four) times daily for 10 days. [facility] HYDROcodone -acetaminop hen (NORCO 10-325) 10-325 mg per tablet 04-03 00:00: 00 04-13 23:59 :00 No 1{tbl} Take 1 tablet by mouth every 6 (six) hours as needed for up to 10 days. Max Daily Amount: 4 tablets [facility] methocarbam oL (ROBAXIN) 500 MG tablet -15 00:00: 00 04-13 23:59 :00 No 500mg Q.25D Take 1 tablet (500 mg total) by mouth 4 (four) times daily for 10 days. [facility] HYDROcodone -acetaminop hen (NORCO 10-325) 10-325 mg per tablet -15 00:00: 00 04-13 23:59 :00 No 1{tbl} Take 1 tablet by mouth every 6 (six) hours as needed for up to 10 days. Max Daily Amount: 4 tablets [facility] methocarbam oL (ROBAXIN) 500 MG tablet 04-03 00:00: 00 04-13 23:59 :00 No 500mg Q.25D Take 1 tablet (500 mg total) by mouth 4 (four) times daily for 10 days. [facility] HYDROcodone -acetaminop hen (NORCO 10-325) 10-325 mg per tablet 04-03 00:00: 00 04-13 23:59 :00 No 1{tbl} Take 1 tablet by mouth every 6 (six) hours as needed for up to 10 days. Max Daily Amount: 4 tablets [facility] methocarbam oL (ROBAXIN) 500 MG tablet 04-03 00:00: 00 04-13 23:59 :00 No 500mg Q.25D Take 1 tablet (500 mg total) by mouth 4 (four) times daily for 10 days. [facility] HYDROcodone -acetaminop hen (NORCO 10-325) 10-325 mg per tablet 15 00:00: 00 04-13 23:59 :00 No 1{tbl} Take 1 tablet by mouth every 6 (six) hours as needed for up to 10 days. Max Daily Amount: 4 tablets [facility] methocarbam oL (ROBAXIN) 500 MG tablet 15 00:00: 00 04-13 23:59 :00 No 500mg Q.25D Take 1 tablet (500 mg total) by mouth 4 (four) times daily for 10 days. [facility] HYDROcodone -acetaminop hen (NORCO 10-325) 10-325 mg per tablet 04-03 00:00: 00 04-13 23:59 :00 No 1{tbl} Take 1 tablet by mouth every 6 (six) hours as needed for up to 10 days. Max Daily Amount: 4 tablets [facility] methocarbam oL (ROBAXIN) 500 MG tablet 04-03 00:00: 00 04-13 23:59 :00 No 500mg Q.25D Take 1 tablet (500 mg total) by mouth 4 (four) times daily for 10 days. [facility] HYDROcodone -acetaminop hen (NORCO 10-325) 10-325 mg per tablet 04-03 00:00: 00 04-13 23:59 :00 No 1{tbl} Take 1 tablet by mouth every 6 (six) hours as needed for up to 10 days. Max Daily Amount: 4 tablets [facility] methocarbam oL (ROBAXIN) 500 MG tablet 04-03 00:00: 00 04-13 23:59 :00 No 500mg Q.25D Take 1 tablet (500 mg total) by mouth 4 (four) times daily for 10 days. [facility] HYDROcodone -acetaminop hen (NORCO 10-325) 10-325 mg per tablet 04-03 00:00: 00 04-13 23:59 :00 No 1{tbl} Take 1 tablet by mouth every 6 (six) hours as needed for up to 10 days. Max Daily Amount: 4 tablets [facility] methocarbam oL (ROBAXIN) 500 MG tablet 04-03 00:00: 00 04-13 23:59 :00 No 500mg Q.25D Take 1 tablet (500 mg total) by mouth 4 (four) times daily for 10 days. [facility] HYDROcodone -acetaminop hen (NORCO 10-325) 10-325 mg per tablet 04-03 00:00: 00 04-13 23:59 :00 No 1{tbl} Take 1 tablet by mouth every 6 (six) hours as needed for up to 10 days. Max Daily Amount: 4 tablets [facility] methocarbam oL (ROBAXIN) 500 MG tablet 04-03 00:00: 00 04-13 23:59 :00 No 500mg Q.25D Take 1 tablet (500 mg total) by mouth 4 (four) times daily for 10 days. [facility] lisinopriL (PRINIVIL,Z ESTRIL) 5 MG tablet 04-03 00:00: 00 04-03 00:00 :00 No 5mg QD Take 1 tablet (5 mg total) by mouth daily. [facility] aspirin 81 MG EC tablet 04-03 00:00: 00 04-03 00:00 :00 No 81mg QD Take 1 tablet (81 mg total) by mouth daily for 90 days. [facility] DULoxetine (CYMBALTA) 30 MG capsule 04-03 00:00: 00 04-03 00:00 :00 No 30mg QD Take 1 capsule (30 mg total) by mouth daily. [facility] furosemide (LASIX) 20 MG tablet 04-03 00:00: 00 04-03 00:00 :00 No 20mg QD Take 1 tablet (20 mg total) by mouth daily. [facility] lisinopriL (PRINIVIL,Z ESTRIL) 5 MG tablet 04-03 00:00: 00 04-03 00:00 :00 No 5mg QD Take 1 tablet (5 mg total) by mouth daily. [facility] aspirin 81 MG EC tablet 04-03 00:00: 00 04-03 00:00 :00 No 81mg QD Take 1 tablet (81 mg total) by mouth daily for 90 days. [facility] DULoxetine (CYMBALTA) 30 MG capsule 04-03 00:00: 00 04-03 00:00 :00 No 30mg QD Take 1 capsule (30 mg total) by mouth daily. [facility] furosemide (LASIX) 20 MG tablet 04-03 00:00: 00 04-03 00:00 :00 No 20mg QD Take 1 tablet (20 mg total) by mouth daily. [facility] lisinopriL (PRINIVIL,Z ESTRIL) 5 MG tablet 04-03 00:00: 00 04-03 00:00 :00 No 5mg QD Take 1 tablet (5 mg total) by mouth daily. [facility] aspirin 81 MG EC tablet 04-03 00:00: 00 04-03 00:00 :00 No 81mg QD Take 1 tablet (81 mg total) by mouth daily for 90 days. [facility] DULoxetine (CYMBALTA) 30 MG capsule 04-03 00:00: 00 04-03 00:00 :00 No 30mg QD Take 1 capsule (30 mg total) by mouth daily. [facility] furosemide (LASIX) 20 MG tablet 04-03 00:00: 00 04-03 00:00 :00 No 20mg QD Take 1 tablet (20 mg total) by mouth daily. [facility] lisinopriL (PRINIVIL,Z ESTRIL) 5 MG tablet 04-03 00:00: 00 04-03 00:00 :00 No 5mg QD Take 1 tablet (5 mg total) by mouth daily. [facility] aspirin 81 MG EC tablet 04-03 00:00: 00 04-03 00:00 :00 No 81mg QD Take 1 tablet (81 mg total) by mouth daily for 90 days. [facility] DULoxetine (CYMBALTA) 30 MG capsule 04-03 00:00: 00 04-03 00:00 :00 No 30mg QD Take 1 capsule (30 mg total) by mouth daily. [facility] furosemide (LASIX) 20 MG tablet 04-03 00:00: 00 04-03 00:00 :00 No 20mg QD Take 1 tablet (20 mg total) by mouth daily. [facility] lisinopriL (PRINIVIL,Z ESTRIL) 5 MG tablet 04-03 00:00: 00 04-03 00:00 :00 No 5mg QD Take 1 tablet (5 mg total) by mouth daily. [facility] aspirin 81 MG EC tablet 04-03 00:00: 00 04-03 00:00 :00 No 81mg QD Take 1 tablet (81 mg total) by mouth daily for 90 days. [facility] DULoxetine (CYMBALTA) 30 MG capsule 04-03 00:00: 00 04-03 00:00 :00 No 30mg QD Take 1 capsule (30 mg total) by mouth daily. [facility] furosemide (LASIX) 20 MG tablet 04-03 00:00: 00 04-03 00:00 :00 No 20mg QD Take 1 tablet (20 mg total) by mouth daily. [facility] lisinopriL (PRINIVIL,Z ESTRIL) 5 MG tablet 04-03 00:00: 00 04-03 00:00 :00 No 5mg QD Take 1 tablet (5 mg total) by mouth daily. [facility] aspirin 81 MG EC tablet 04-03 00:00: 00 04-03 00:00 :00 No 81mg QD Take 1 tablet (81 mg total) by mouth daily for 90 days. [facility] DULoxetine (CYMBALTA) 30 MG capsule 04-03 00:00: 00 04-03 00:00 :00 No 30mg QD Take 1 capsule (30 mg total) by mouth daily. [facility] furosemide (LASIX) 20 MG tablet 04-03 00:00: 00 04-03 00:00 :00 No 20mg QD Take 1 tablet (20 mg total) by mouth daily. [facility] lisinopriL (PRINIVIL,Z ESTRIL) 5 MG tablet 04-03 00:00: 00 04-03 00:00 :00 No 5mg QD Take 1 tablet (5 mg total) by mouth daily. [facility] aspirin 81 MG EC tablet 04-03 00:00: 00 04-03 00:00 :00 No 81mg QD Take 1 tablet (81 mg total) by mouth daily for 90 days. [facility] DULoxetine (CYMBALTA) 30 MG capsule 04-03 00:00: 00 04-03 00:00 :00 No 30mg QD Take 1 capsule (30 mg total) by mouth daily. [facility] furosemide (LASIX) 20 MG tablet 04-03 00:00: 00 04-03 00:00 :00 No 20mg QD Take 1 tablet (20 mg total) by mouth daily. [facility] lisinopriL (PRINIVIL,Z ESTRIL) 5 MG tablet 04-03 00:00: 00 04-03 00:00 :00 No 5mg QD Take 1 tablet (5 mg total) by mouth daily. [facility] aspirin 81 MG EC tablet 04-03 00:00: 00 04-03 00:00 :00 No 81mg QD Take 1 tablet (81 mg total) by mouth daily for 90 days. [facility] DULoxetine (CYMBALTA) 30 MG capsule 04-03 00:00: 00 04-03 00:00 :00 No 30mg QD Take 1 capsule (30 mg total) by mouth daily. [facility] furosemide (LASIX) 20 MG tablet 04-03 00:00: 00 04-03 00:00 :00 No 20mg QD Take 1 tablet (20 mg total) by mouth daily. [facility] lisinopriL (PRINIVIL,Z ESTRIL) 5 MG tablet 04-03 00:00: 00 04-03 00:00 :00 No 5mg QD Take 1 tablet (5 mg total) by mouth daily. [facility] aspirin 81 MG EC tablet 04-03 00:00: 00 04-03 00:00 :00 No 81mg QD Take 1 tablet (81 mg total) by mouth daily for 90 days. [facility] DULoxetine (CYMBALTA) 30 MG capsule 04-03 00:00: 00 04-03 00:00 :00 No 30mg QD Take 1 capsule (30 mg total) by mouth daily. [facility] furosemide (LASIX) 20 MG tablet 04-03 00:00: 00 04-03 00:00 :00 No 20mg QD Take 1 tablet (20 mg total) by mouth daily. [facility] lisinopriL (PRINIVIL,Z ESTRIL) 5 MG tablet 04-03 00:00: 00 04-03 00:00 :00 No 5mg QD Take 1 tablet (5 mg total) by mouth daily. [facility] aspirin 81 MG EC tablet 04-03 00:00: 00 04-03 00:00 :00 No 81mg QD Take 1 tablet (81 mg total) by mouth daily for 90 days. [facility] DULoxetine (CYMBALTA) 30 MG capsule 04-03 00:00: 00 04-03 00:00 :00 No 30mg QD Take 1 capsule (30 mg total) by mouth daily. [facility] furosemide (LASIX) 20 MG tablet 04-03 00:00: 00 04-03 00:00 :00 No 20mg QD Take 1 tablet (20 mg total) by mouth daily. [facility] lisinopriL (PRINIVIL,Z ESTRIL) 5 MG tablet 04-03 00:00: 00 04-03 00:00 :00 No 5mg QD Take 1 tablet (5 mg total) by mouth daily. [facility] aspirin 81 MG EC tablet 04-03 00:00: 00 04-03 00:00 :00 No 81mg QD Take 1 tablet (81 mg total) by mouth daily for 90 days. [facility] DULoxetine (CYMBALTA) 30 MG capsule 04-03 00:00: 00 04-03 00:00 :00 No 30mg QD Take 1 capsule (30 mg total) by mouth daily. [facility] furosemide (LASIX) 20 MG tablet 04-03 00:00: 00 04-03 00:00 :00 No 20mg QD Take 1 tablet (20 mg total) by mouth daily. [facility] lisinopriL (PRINIVIL,Z ESTRIL) 5 MG tablet 04-03 00:00: 00 04-03 00:00 :00 No 5mg QD Take 1 tablet (5 mg total) by mouth daily. [facility] aspirin 81 MG EC tablet 04-03 00:00: 00 04-03 00:00 :00 No 81mg QD Take 1 tablet (81 mg total) by mouth daily for 90 days. [facility] DULoxetine (CYMBALTA) 30 MG capsule 04-03 00:00: 00 04-03 00:00 :00 No 30mg QD Take 1 capsule (30 mg total) by mouth daily. [facility] furosemide (LASIX) 20 MG tablet 04-03 00:00: 00 04-03 00:00 :00 No 20mg QD Take 1 tablet (20 mg total) by mouth daily. [facility] lisinopriL (PRINIVIL,Z ESTRIL) 5 MG tablet 04-03 00:00: 00 04-03 00:00 :00 No 5mg QD Take 1 tablet (5 mg total) by mouth daily. [facility] aspirin 81 MG EC tablet 04-03 00:00: 00 04-03 00:00 :00 No 81mg QD Take 1 tablet (81 mg total) by mouth daily for 90 days. [facility] DULoxetine (CYMBALTA) 30 MG capsule 04-03 00:00: 00 04-03 00:00 :00 No 30mg QD Take 1 capsule (30 mg total) by mouth daily. [facility] furosemide (LASIX) 20 MG tablet 04-03 00:00: 00 04-03 00:00 :00 No 20mg QD Take 1 tablet (20 mg total) by mouth daily. [facility] lisinopriL (PRINIVIL,Z ESTRIL) 5 MG tablet 04-03 00:00: 00 04-03 00:00 :00 No 5mg QD Take 1 tablet (5 mg total) by mouth daily. [facility] aspirin 81 MG EC tablet 04-03 00:00: 00 04-03 00:00 :00 No 81mg QD Take 1 tablet (81 mg total) by mouth daily for 90 days. [facility] DULoxetine (CYMBALTA) 30 MG capsule 04-03 00:00: 00 04-03 00:00 :00 No 30mg QD Take 1 capsule (30 mg total) by mouth daily. [facility] furosemide (LASIX) 20 MG tablet 04-03 00:00: 00 04-03 00:00 :00 No 20mg QD Take 1 tablet (20 mg total) by mouth daily. [facility] aspirin 81 MG EC tablet 04-03 00:00: 00 04-03 00:00 :00 No 81mg QD Take 1 tablet (81 mg total) by mouth daily for 90 days. [facility] DULoxetine (CYMBALTA) 30 MG capsule 04-03 00:00: 00 04-03 00:00 :00 No 30mg QD Take 1 capsule (30 mg total) by mouth daily. [facility] furosemide (LASIX) 20 MG tablet 04-03 00:00: 00 04-03 00:00 :00 No 20mg QD Take 1 tablet (20 mg total) by mouth daily. [facility] lisinopriL (PRINIVIL,Z ESTRIL) 5 MG tablet 04-03 00:00: 00 04-03 00:00 :00 No 5mg QD Take 1 tablet (5 mg total) by mouth daily. [facility] aspirin 81 MG EC tablet 04-03 00:00: 00 04-03 00:00 :00 No 81mg QD Take 1 tablet (81 mg total) by mouth daily for 90 days. [facility] DULoxetine (CYMBALTA) 30 MG capsule 04-03 00:00: 00 04-03 00:00 :00 No 30mg QD Take 1 capsule (30 mg total) by mouth daily. [facility] furosemide (LASIX) 20 MG tablet 04-03 00:00: 00 04-03 00:00 :00 No 20mg QD Take 1 tablet (20 mg total) by mouth daily. [facility] lisinopriL (PRINIVIL,Z ESTRIL) 5 MG tablet 04-03 00:00: 00 04-03 00:00 :00 No 5mg QD Take 1 tablet (5 mg total) by mouth daily. [facility] lisinopriL (PRINIVIL,Z ESTRIL) 5 MG tablet 04-03 00:00: 00 04-03 00:00 :00 No 5mg QD Take 1 tablet (5 mg total) by mouth daily. [facility] aspirin 81 MG EC tablet 04-03 00:00: 00 04-03 00:00 :00 No 81mg QD Take 1 tablet (81 mg total) by mouth daily for 90 days. [facility] DULoxetine (CYMBALTA) 30 MG capsule 04-03 00:00: 00 04-03 00:00 :00 No 30mg QD Take 1 capsule (30 mg total) by mouth daily. [facility] furosemide (LASIX) 20 MG tablet 04-03 00:00: 00 04-03 00:00 :00 No 20mg QD Take 1 tablet (20 mg total) by mouth daily. [facility] lisinopriL (PRINIVIL,Z ESTRIL) 5 MG tablet 04-03 00:00: 00 04-03 00:00 :00 No 5mg QD Take 1 tablet (5 mg total) by mouth daily. [facility] aspirin 81 MG EC tablet 04-03 00:00: 00 04-03 00:00 :00 No 81mg QD Take 1 tablet (81 mg total) by mouth daily for 90 days. [facility] DULoxetine (CYMBALTA) 30 MG capsule 04-03 00:00: 00 04-03 00:00 :00 No 30mg QD Take 1 capsule (30 mg total) by mouth daily. [facility] furosemide (LASIX) 20 MG tablet 04-03 00:00: 00 04-03 00:00 :00 No 20mg QD Take 1 tablet (20 mg total) by mouth daily. [facility] lisinopriL (PRINIVIL,Z ESTRIL) 5 MG tablet 04-03 00:00: 00 04-03 00:00 :00 No 5mg QD Take 1 tablet (5 mg total) by mouth daily. [facility] aspirin 81 MG EC tablet 04-03 00:00: 00 04-03 00:00 :00 No 81mg QD Take 1 tablet (81 mg total) by mouth daily for 90 days. [facility] DULoxetine (CYMBALTA) 30 MG capsule 04-03 00:00: 00 04-03 00:00 :00 No 30mg QD Take 1 capsule (30 mg total) by mouth daily. [facility] furosemide (LASIX) 20 MG tablet 04-03 00:00: 00 04-03 00:00 :00 No 20mg QD Take 1 tablet (20 mg total) by mouth daily. [facility] lisinopriL (PRINIVIL,Z ESTRIL) 5 MG tablet 04-03 00:00: 00 04-03 00:00 :00 No 5mg QD Take 1 tablet (5 mg total) by mouth daily. [facility] aspirin 81 MG EC tablet 04-03 00:00: 00 04-03 00:00 :00 No 81mg QD Take 1 tablet (81 mg total) by mouth daily for 90 days. [facility] DULoxetine (CYMBALTA) 30 MG capsule 04-03 00:00: 00 04-03 00:00 :00 No 30mg QD Take 1 capsule (30 mg total) by mouth daily. [facility] furosemide (LASIX) 20 MG tablet 04-03 00:00: 00 04-03 00:00 :00 No 20mg QD Take 1 tablet (20 mg total) by mouth daily. [facility] lisinopriL (PRINIVIL,Z ESTRIL) 5 MG tablet 04-03 00:00: 00 04-03 00:00 :00 No 5mg QD Take 1 tablet (5 mg total) by mouth daily. [facility] aspirin 81 MG EC tablet 04-03 00:00: 00 04-03 00:00 :00 No 81mg QD Take 1 tablet (81 mg total) by mouth daily for 90 days. [facility] DULoxetine (CYMBALTA) 30 MG capsule 04-03 00:00: 00 04-03 00:00 :00 No 30mg QD Take 1 capsule (30 mg total) by mouth daily. [facility] furosemide (LASIX) 20 MG tablet 04-03 00:00: 00 04-03 00:00 :00 No 20mg QD Take 1 tablet (20 mg total) by mouth daily. [facility] lisinopriL (PRINIVIL,Z ESTRIL) 5 MG tablet 04-03 00:00: 00 04-03 00:00 :00 No 5mg QD Take 1 tablet (5 mg total) by mouth daily. [facility] aspirin 81 MG EC tablet 04-03 00:00: 00 04-03 00:00 :00 No 81mg QD Take 1 tablet (81 mg total) by mouth daily for 90 days. [facility] DULoxetine (CYMBALTA) 30 MG capsule 04-03 00:00: 00 04-03 00:00 :00 No 30mg QD Take 1 capsule (30 mg total) by mouth daily. [facility] furosemide (LASIX) 20 MG tablet 04-03 00:00: 00 04-03 00:00 :00 No 20mg QD Take 1 tablet (20 mg total) by mouth daily. [facility] gabapentin (NEURONTIN) 300 MG capsule 04-02 00:00: 00 04-03 00:00 :00 No 300mg Q.[id number] 3D Take 1 capsule (300 mg total) by mouth 3 (three) times daily for 90 days. [facility] divalproex (DEPAKOTE) 500 MG EC tablet 04-02 00:00: 00 04-03 00:00 :00 No 500mg Q.5D Take 1 tablet (500 mg total) by mouth 2 (two) times daily for 90 days. [facility] clonazePAM (KlonoPIN) 0.5 MG tablet 04-02 00:00: 00 04-03 00:00 :00 No .25mg Take 0.5 tablets (0.25 mg total) by mouth 2 (two) times daily as needed for Anxiety for up to 30 days. Max Daily Amount: 0.5 mg [facility] gabapentin (NEURONTIN) 300 MG capsule 04-02 00:00: 00 04-03 00:00 :00 No 300mg Q.[id number] 3D Take 1 capsule (300 mg total) by mouth 3 (three) times daily for 90 days. [facility] HYDROcodone -acetaminop hen (NORCO 10-325) 10-325 mg per tablet 04-02 00:00: 00 04-03 00:00 :00 No 1{tbl} Take 1 tablet by mouth every 6 (six) hours as needed for up to 10 days. Max Daily Amount: 4 tablets [facility] HYDROcodone -acetaminop hen (NORCO 10-325) 10-325 mg per tablet 04-02 00:00: 00 04-03 00:00 :00 No 1{tbl} Take 1 tablet by mouth every 6 (six) hours as needed for up to 10 days. Max Daily Amount: 4 tablets [facility] methocarbam oL (ROBAXIN) 500 MG tablet 04-02 00:00: 00 04-03 00:00 :00 No 500mg Q.25D Take 1 tablet (500 mg total) by mouth 4 (four) times daily for 10 days. [facility] methocarbam oL (ROBAXIN) 500 MG tablet 04-02 00:00: 00 04-03 00:00 :00 No 500mg Q.25D Take 1 tablet (500 mg total) by mouth 4 (four) times daily for 10 days. [facility] divalproex (DEPAKOTE) 500 MG EC tablet 04-02 00:00: 00 04-03 00:00 :00 No 500mg Q.5D Take 1 tablet (500 mg total) by mouth 2 (two) times daily for 90 days. [facility] clonazePAM (KlonoPIN) 0.5 MG tablet 04-02 00:00: 00 04-03 00:00 :00 No .25mg Take 0.5 tablets (0.25 mg total) by mouth 2 (two) times daily as needed for Anxiety for up to 30 days. Max Daily Amount: 0.5 mg [facility] gabapentin (NEURONTIN) 300 MG capsule 04-02 00:00: 00 04-03 00:00 :00 No 300mg Q.[id number] 3D Take 1 capsule (300 mg total) by mouth 3 (three) times daily for 90 days. [facility] HYDROcodone -acetaminop hen (NORCO 10-325) 10-325 mg per tablet 04-02 00:00: 00 04-03 00:00 :00 No 1{tbl} Take 1 tablet by mouth every 6 (six) hours as needed for up to 10 days. Max Daily Amount: 4 tablets [facility] methocarbam oL (ROBAXIN) 500 MG tablet 04-02 00:00: 00 04-03 00:00 :00 No 500mg Q.25D Take 1 tablet (500 mg total) by mouth 4 (four) times daily for 10 days. [facility] divalproex (DEPAKOTE) 500 MG EC tablet 04-02 00:00: 00 04-03 00:00 :00 No 500mg Q.5D Take 1 tablet (500 mg total) by mouth 2 (two) times daily for 90 days. [facility] clonazePAM (KlonoPIN) 0.5 MG tablet 04-02 00:00: 00 04-03 00:00 :00 No .25mg Take 0.5 tablets (0.25 mg total) by mouth 2 (two) times daily as needed for Anxiety for up to 30 days. Max Daily Amount: 0.5 mg [facility] gabapentin (NEURONTIN) 300 MG capsule 04-02 00:00: 00 04-03 00:00 :00 No 300mg Q.[id number] 3D Take 1 capsule (300 mg total) by mouth 3 (three) times daily for 90 days. [facility] HYDROcodone -acetaminop hen (NORCO 10-325) 10-325 mg per tablet 04-02 00:00: 00 04-03 00:00 :00 No 1{tbl} Take 1 tablet by mouth every 6 (six) hours as needed for up to 10 days. Max Daily Amount: 4 tablets [facility] methocarbam oL (ROBAXIN) 500 MG tablet 04-02 00:00: 00 04-03 00:00 :00 No 500mg Q.25D Take 1 tablet (500 mg total) by mouth 4 (four) times daily for 10 days. [facility] divalproex (DEPAKOTE) 500 MG EC tablet 04-02 00:00: 00 04-03 00:00 :00 No 500mg Q.5D Take 1 tablet (500 mg total) by mouth 2 (two) times daily for 90 days. [facility] clonazePAM (KlonoPIN) 0.5 MG tablet 04-02 00:00: 00 04-03 00:00 :00 No .25mg Take 0.5 tablets (0.25 mg total) by mouth 2 (two) times daily as needed for Anxiety for up to 30 days. Max Daily Amount: 0.5 mg [facility] gabapentin (NEURONTIN) 300 MG capsule 04-02 00:00: 00 04-03 00:00 :00 No 300mg Q.[id number] 3D Take 1 capsule (300 mg total) by mouth 3 (three) times daily for 90 days. [facility] HYDROcodone -acetaminop hen (NORCO 10-325) 10-325 mg per tablet 04-02 00:00: 00 04-03 00:00 :00 No 1{tbl} Take 1 tablet by mouth every 6 (six) hours as needed for up to 10 days. Max Daily Amount: 4 tablets [facility] methocarbam oL (ROBAXIN) 500 MG tablet 04-02 00:00: 00 04-03 00:00 :00 No 500mg Q.25D Take 1 tablet (500 mg total) by mouth 4 (four) times daily for 10 days. [facility] divalproex (DEPAKOTE) 500 MG EC tablet 04-02 00:00: 00 04-03 00:00 :00 No 500mg Q.5D Take 1 tablet (500 mg total) by mouth 2 (two) times daily for 90 days. [facility] clonazePAM (KlonoPIN) 0.5 MG tablet 04-02 00:00: 00 04-03 00:00 :00 No .25mg Take 0.5 tablets (0.25 mg total) by mouth 2 (two) times daily as needed for Anxiety for up to 30 days. Max Daily Amount: 0.5 mg [facility] gabapentin (NEURONTIN) 300 MG capsule 04-02 00:00: 00 04-03 00:00 :00 No 300mg Q.[id number] 3D Take 1 capsule (300 mg total) by mouth 3 (three) times daily for 90 days. [facility] HYDROcodone -acetaminop hen (NORCO 10-325) 10-325 mg per tablet 04-02 00:00: 00 04-03 00:00 :00 No 1{tbl} Take 1 tablet by mouth every 6 (six) hours as needed for up to 10 days. Max Daily Amount: 4 tablets [facility] methocarbam oL (ROBAXIN) 500 MG tablet 04-02 00:00: 00 04-03 00:00 :00 No 500mg Q.25D Take 1 tablet (500 mg total) by mouth 4 (four) times daily for 10 days. [facility] divalproex (DEPAKOTE) 500 MG EC tablet 04-02 00:00: 00 04-03 00:00 :00 No 500mg Q.5D Take 1 tablet (500 mg total) by mouth 2 (two) times daily for 90 days. [facility] clonazePAM (KlonoPIN) 0.5 MG tablet 04-02 00:00: 00 04-03 00:00 :00 No .25mg Take 0.5 tablets (0.25 mg total) by mouth 2 (two) times daily as needed for Anxiety for up to 30 days. Max Daily Amount: 0.5 mg [facility] gabapentin (NEURONTIN) 300 MG capsule 04-02 00:00: 00 04-03 00:00 :00 No 300mg Q.[id number] 3D Take 1 capsule (300 mg total) by mouth 3 (three) times daily for 90 days. [facility] HYDROcodone -acetaminop hen (NORCO 10-325) 10-325 mg per tablet 04-02 00:00: 00 04-03 00:00 :00 No 1{tbl} Take 1 tablet by mouth every 6 (six) hours as needed for up to 10 days. Max Daily Amount: 4 tablets [facility] methocarbam oL (ROBAXIN) 500 MG tablet 04-02 00:00: 00 04-03 00:00 :00 No 500mg Q.25D Take 1 tablet (500 mg total) by mouth 4 (four) times daily for 10 days. [facility] divalproex (DEPAKOTE) 500 MG EC tablet 04-02 00:00: 00 04-03 00:00 :00 No 500mg Q.5D Take 1 tablet (500 mg total) by mouth 2 (two) times daily for 90 days. [facility] clonazePAM (KlonoPIN) 0.5 MG tablet 04-02 00:00: 00 04-03 00:00 :00 No .25mg Take 0.5 tablets (0.25 mg total) by mouth 2 (two) times daily as needed for Anxiety for up to 30 days. Max Daily Amount: 0.5 mg [facility] gabapentin (NEURONTIN) 300 MG capsule 04-02 00:00: 00 04-03 00:00 :00 No 300mg Q.[id number] 3D Take 1 capsule (300 mg total) by mouth 3 (three) times daily for 90 days. [facility] HYDROcodone -acetaminop hen (NORCO 10-325) 10-325 mg per tablet 04-02 00:00: 00 04-03 00:00 :00 No 1{tbl} Take 1 tablet by mouth every 6 (six) hours as needed for up to 10 days. Max Daily Amount: 4 tablets [facility] methocarbam oL (ROBAXIN) 500 MG tablet 04-02 00:00: 00 04-03 00:00 :00 No 500mg Q.25D Take 1 tablet (500 mg total) by mouth 4 (four) times daily for 10 days. [facility] divalproex (DEPAKOTE) 500 MG EC tablet 04-02 00:00: 00 04-03 00:00 :00 No 500mg Q.5D Take 1 tablet (500 mg total) by mouth 2 (two) times daily for 90 days. [facility] clonazePAM (KlonoPIN) 0.5 MG tablet 04-02 00:00: 00 04-03 00:00 :00 No .25mg Take 0.5 tablets (0.25 mg total) by mouth 2 (two) times daily as needed for Anxiety for up to 30 days. Max Daily Amount: 0.5 mg [facility] gabapentin (NEURONTIN) 300 MG capsule 04-02 00:00: 00 04-03 00:00 :00 No 300mg Q.[id number] 3D Take 1 capsule (300 mg total) by mouth 3 (three) times daily for 90 days. [facility] HYDROcodone -acetaminop hen (NORCO 10-325) 10-325 mg per tablet 04-02 00:00: 00 04-03 00:00 :00 No 1{tbl} Take 1 tablet by mouth every 6 (six) hours as needed for up to 10 days. Max Daily Amount: 4 tablets [facility] methocarbam oL (ROBAXIN) 500 MG tablet 04-02 00:00: 00 04-03 00:00 :00 No 500mg Q.25D Take 1 tablet (500 mg total) by mouth 4 (four) times daily for 10 days. [facility] divalproex (DEPAKOTE) 500 MG EC tablet 04-02 00:00: 00 04-03 00:00 :00 No 500mg Q.5D Take 1 tablet (500 mg total) by mouth 2 (two) times daily for 90 days. [facility] clonazePAM (KlonoPIN) 0.5 MG tablet 04-02 00:00: 00 04-03 00:00 :00 No .25mg Take 0.5 tablets (0.25 mg total) by mouth 2 (two) times daily as needed for Anxiety for up to 30 days. Max Daily Amount: 0.5 mg [facility] gabapentin (NEURONTIN) 300 MG capsule 04-02 00:00: 00 04-03 00:00 :00 No 300mg Q.[id number] 3D Take 1 capsule (300 mg total) by mouth 3 (three) times daily for 90 days. [facility] HYDROcodone -acetaminop hen (NORCO 10-325) 10-325 mg per tablet 04-02 00:00: 00 04-03 00:00 :00 No 1{tbl} Take 1 tablet by mouth every 6 (six) hours as needed for up to 10 days. Max Daily Amount: 4 tablets [facility] methocarbam oL (ROBAXIN) 500 MG tablet 04-02 00:00: 00 04-03 00:00 :00 No 500mg Q.25D Take 1 tablet (500 mg total) by mouth 4 (four) times daily for 10 days. [facility] divalproex (DEPAKOTE) 500 MG EC tablet 04-02 00:00: 00 04-03 00:00 :00 No 500mg Q.5D Take 1 tablet (500 mg total) by mouth 2 (two) times daily for 90 days. [facility] clonazePAM (KlonoPIN) 0.5 MG tablet 04-02 00:00: 00 04-03 00:00 :00 No .25mg Take 0.5 tablets (0.25 mg total) by mouth 2 (two) times daily as needed for Anxiety for up to 30 days. Max Daily Amount: 0.5 mg [facility] gabapentin (NEURONTIN) 300 MG capsule 04-02 00:00: 00 04-03 00:00 :00 No 300mg Q.[id number] 3D Take 1 capsule (300 mg total) by mouth 3 (three) times daily for 90 days. [facility] HYDROcodone -acetaminop hen (NORCO 10-325) 10-325 mg per tablet 04-02 00:00: 00 04-03 00:00 :00 No 1{tbl} Take 1 tablet by mouth every 6 (six) hours as needed for up to 10 days. Max Daily Amount: 4 tablets [facility] methocarbam oL (ROBAXIN) 500 MG tablet 04-02 00:00: 00 04-03 00:00 :00 No 500mg Q.25D Take 1 tablet (500 mg total) by mouth 4 (four) times daily for 10 days. [facility] divalproex (DEPAKOTE) 500 MG EC tablet 04-02 00:00: 00 04-03 00:00 :00 No 500mg Q.5D Take 1 tablet (500 mg total) by mouth 2 (two) times daily for 90 days. [facility] clonazePAM (KlonoPIN) 0.5 MG tablet 04-02 00:00: 00 04-03 00:00 :00 No .25mg Take 0.5 tablets (0.25 mg total) by mouth 2 (two) times daily as needed for Anxiety for up to 30 days. Max Daily Amount: 0.5 mg [facility] gabapentin (NEURONTIN) 300 MG capsule 04-02 00:00: 00 04-03 00:00 :00 No 300mg Q.[id number] 3D Take 1 capsule (300 mg total) by mouth 3 (three) times daily for 90 days. [facility] HYDROcodone -acetaminop hen (NORCO 10-325) 10-325 mg per tablet 04-02 00:00: 00 04-03 00:00 :00 No 1{tbl} Take 1 tablet by mouth every 6 (six) hours as needed for up to 10 days. Max Daily Amount: 4 tablets [facility] methocarbam oL (ROBAXIN) 500 MG tablet 04-02 00:00: 00 04-03 00:00 :00 No 500mg Q.25D Take 1 tablet (500 mg total) by mouth 4 (four) times daily for 10 days. [facility] divalproex (DEPAKOTE) 500 MG EC tablet 04-02 00:00: 00 04-03 00:00 :00 No 500mg Q.5D Take 1 tablet (500 mg total) by mouth 2 (two) times daily for 90 days. [facility] clonazePAM (KlonoPIN) 0.5 MG tablet 04-02 00:00: 00 04-03 00:00 :00 No .25mg Take 0.5 tablets (0.25 mg total) by mouth 2 (two) times daily as needed for Anxiety for up to 30 days. Max Daily Amount: 0.5 mg [facility] gabapentin (NEURONTIN) 300 MG capsule 04-02 00:00: 00 04-03 00:00 :00 No 300mg Q.[id number] 3D Take 1 capsule (300 mg total) by mouth 3 (three) times daily for 90 days. [facility] HYDROcodone -acetaminop hen (NORCO 10-325) 10-325 mg per tablet 04-02 00:00: 00 04-03 00:00 :00 No 1{tbl} Take 1 tablet by mouth every 6 (six) hours as needed for up to 10 days. Max Daily Amount: 4 tablets [facility] methocarbam oL (ROBAXIN) 500 MG tablet 04-02 00:00: 00 04-03 00:00 :00 No 500mg Q.25D Take 1 tablet (500 mg total) by mouth 4 (four) times daily for 10 days. [facility] divalproex (DEPAKOTE) 500 MG EC tablet 04-02 00:00: 00 04-03 00:00 :00 No 500mg Q.5D Take 1 tablet (500 mg total) by mouth 2 (two) times daily for 90 days. [facility] clonazePAM (KlonoPIN) 0.5 MG tablet 04-02 00:00: 00 04-03 00:00 :00 No .25mg Take 0.5 tablets (0.25 mg total) by mouth 2 (two) times daily as needed for Anxiety for up to 30 days. Max Daily Amount: 0.5 mg [facility] gabapentin (NEURONTIN) 300 MG capsule 04-02 00:00: 00 04-03 00:00 :00 No 300mg Q.[id number] 3D Take 1 capsule (300 mg total) by mouth 3 (three) times daily for 90 days. [facility] HYDROcodone -acetaminop hen (NORCO 10-325) 10-325 mg per tablet 04-02 00:00: 00 04-03 00:00 :00 No 1{tbl} Take 1 tablet by mouth every 6 (six) hours as needed for up to 10 days. Max Daily Amount: 4 tablets [facility] methocarbam oL (ROBAXIN) 500 MG tablet 04-02 00:00: 00 04-03 00:00 :00 No 500mg Q.25D Take 1 tablet (500 mg total) by mouth 4 (four) times daily for 10 days. [facility] divalproex (DEPAKOTE) 500 MG EC tablet 04-02 00:00: 00 04-03 00:00 :00 No 500mg Q.5D Take 1 tablet (500 mg total) by mouth 2 (two) times daily for 90 days. [facility] clonazePAM (KlonoPIN) 0.5 MG tablet 04-02 00:00: 00 04-03 00:00 :00 No .25mg Take 0.5 tablets (0.25 mg total) by mouth 2 (two) times daily as needed for Anxiety for up to 30 days. Max Daily Amount: 0.5 mg [facility] gabapentin (NEURONTIN) 300 MG capsule 04-02 00:00: 00 04-03 00:00 :00 No 300mg Q.[id number] 3D Take 1 capsule (300 mg total) by mouth 3 (three) times daily for 90 days. [facility] HYDROcodone -acetaminop hen (NORCO 10-325) 10-325 mg per tablet 04-02 00:00: 00 04-03 00:00 :00 No 1{tbl} Take 1 tablet by mouth every 6 (six) hours as needed for up to 10 days. Max Daily Amount: 4 tablets [facility] methocarbam oL (ROBAXIN) 500 MG tablet 04-02 00:00: 00 04-03 00:00 :00 No 500mg Q.25D Take 1 tablet (500 mg total) by mouth 4 (four) times daily for 10 days. [facility] divalproex (DEPAKOTE) 500 MG EC tablet 04-02 00:00: 00 04-03 00:00 :00 No 500mg Q.5D Take 1 tablet (500 mg total) by mouth 2 (two) times daily for 90 days. [facility] clonazePAM (KlonoPIN) 0.5 MG tablet 04-02 00:00: 00 04-03 00:00 :00 No .25mg Take 0.5 tablets (0.25 mg total) by mouth 2 (two) times daily as needed for Anxiety for up to 30 days. Max Daily Amount: 0.5 mg [facility] gabapentin (NEURONTIN) 300 MG capsule 04-02 00:00: 00 04-03 00:00 :00 No 300mg Q.[id number] 3D Take 1 capsule (300 mg total) by mouth 3 (three) times daily for 90 days. [facility] HYDROcodone -acetaminop hen (NORCO 10-325) 10-325 mg per tablet 04-02 00:00: 00 04-03 00:00 :00 No 1{tbl} Take 1 tablet by mouth every 6 (six) hours as needed for up to 10 days. Max Daily Amount: 4 tablets [facility] methocarbam oL (ROBAXIN) 500 MG tablet 04-02 00:00: 00 04-03 00:00 :00 No 500mg Q.25D Take 1 tablet (500 mg total) by mouth 4 (four) times daily for 10 days. [facility] divalproex (DEPAKOTE) 500 MG EC tablet 04-02 00:00: 00 04-03 00:00 :00 No 500mg Q.5D Take 1 tablet (500 mg total) by mouth 2 (two) times daily for 90 days. [facility] clonazePAM (KlonoPIN) 0.5 MG tablet 04-02 00:00: 00 04-03 00:00 :00 No .25mg Take 0.5 tablets (0.25 mg total) by mouth 2 (two) times daily as needed for Anxiety for up to 30 days. Max Daily Amount: 0.5 mg [facility] gabapentin (NEURONTIN) 300 MG capsule 04-02 00:00: 00 04-03 00:00 :00 No 300mg Q.[id number] 3D Take 1 capsule (300 mg total) by mouth 3 (three) times daily for 90 days. [facility] HYDROcodone -acetaminop hen (NORCO 10-325) 10-325 mg per tablet 04-02 00:00: 00 04-03 00:00 :00 No 1{tbl} Take 1 tablet by mouth every 6 (six) hours as needed for up to 10 days. Max Daily Amount: 4 tablets [facility] methocarbam oL (ROBAXIN) 500 MG tablet 04-02 00:00: 00 04-03 00:00 :00 No 500mg Q.25D Take 1 tablet (500 mg total) by mouth 4 (four) times daily for 10 days. [facility] divalproex (DEPAKOTE) 500 MG EC tablet 04-02 00:00: 00 04-03 00:00 :00 No 500mg Q.5D Take 1 tablet (500 mg total) by mouth 2 (two) times daily for 90 days. [facility] clonazePAM (KlonoPIN) 0.5 MG tablet 04-02 00:00: 00 04-03 00:00 :00 No .25mg Take 0.5 tablets (0.25 mg total) by mouth 2 (two) times daily as needed for Anxiety for up to 30 days. Max Daily Amount: 0.5 mg [facility] gabapentin (NEURONTIN) 300 MG capsule 04-02 00:00: 00 04-03 00:00 :00 No 300mg Q.[id number] 3D Take 1 capsule (300 mg total) by mouth 3 (three) times daily for 90 days. [facility] HYDROcodone -acetaminop hen (NORCO 10-325) 10-325 mg per tablet 04-02 00:00: 00 04-03 00:00 :00 No 1{tbl} Take 1 tablet by mouth every 6 (six) hours as needed for up to 10 days. Max Daily Amount: 4 tablets [facility] methocarbam oL (ROBAXIN) 500 MG tablet 04-02 00:00: 00 04-03 00:00 :00 No 500mg Q.25D Take 1 tablet (500 mg total) by mouth 4 (four) times daily for 10 days. [facility] divalproex (DEPAKOTE) 500 MG EC tablet 04-02 00:00: 00 04-03 00:00 :00 No 500mg Q.5D Take 1 tablet (500 mg total) by mouth 2 (two) times daily for 90 days. [facility] clonazePAM (KlonoPIN) 0.5 MG tablet 04-02 00:00: 00 04-03 00:00 :00 No .25mg Take 0.5 tablets (0.25 mg total) by mouth 2 (two) times daily as needed for Anxiety for up to 30 days. Max Daily Amount: 0.5 mg [facility] gabapentin (NEURONTIN) 300 MG capsule 04-02 00:00: 00 04-03 00:00 :00 No 300mg Q.[id number] 3D Take 1 capsule (300 mg total) by mouth 3 (three) times daily for 90 days. [facility] HYDROcodone -acetaminop hen (NORCO 10-325) 10-325 mg per tablet 04-02 00:00: 00 04-03 00:00 :00 No 1{tbl} Take 1 tablet by mouth every 6 (six) hours as needed for up to 10 days. Max Daily Amount: 4 tablets [facility] methocarbam oL (ROBAXIN) 500 MG tablet 04-02 00:00: 00 04-03 00:00 :00 No 500mg Q.25D Take 1 tablet (500 mg total) by mouth 4 (four) times daily for 10 days. [facility] divalproex (DEPAKOTE) 500 MG EC tablet 04-02 00:00: 00 04-03 00:00 :00 No 500mg Q.5D Take 1 tablet (500 mg total) by mouth 2 (two) times daily for 90 days. [facility] clonazePAM (KlonoPIN) 0.5 MG tablet 04-02 00:00: 00 04-03 00:00 :00 No .25mg Take 0.5 tablets (0.25 mg total) by mouth 2 (two) times daily as needed for Anxiety for up to 30 days. Max Daily Amount: 0.5 mg [facility] gabapentin (NEURONTIN) 300 MG capsule 04-02 00:00: 00 04-03 00:00 :00 No 300mg Q.[id number] 3D Take 1 capsule (300 mg total) by mouth 3 (three) times daily for 90 days. [facility] HYDROcodone -acetaminop hen (NORCO 10-325) 10-325 mg per tablet 04-02 00:00: 00 04-03 00:00 :00 No 1{tbl} Take 1 tablet by mouth every 6 (six) hours as needed for up to 10 days. Max Daily Amount: 4 tablets [facility] methocarbam oL (ROBAXIN) 500 MG tablet 04-02 00:00: 00 04-03 00:00 :00 No 500mg Q.25D Take 1 tablet (500 mg total) by mouth 4 (four) times daily for 10 days. [facility] divalproex (DEPAKOTE) 500 MG EC tablet 04-02 00:00: 00 04-03 00:00 :00 No 500mg Q.5D Take 1 tablet (500 mg total) by mouth 2 (two) times daily for 90 days. [facility] clonazePAM (KlonoPIN) 0.5 MG tablet 04-02 00:00: 00 04-03 00:00 :00 No .25mg Take 0.5 tablets (0.25 mg total) by mouth 2 (two) times daily as needed for Anxiety for up to 30 days. Max Daily Amount: 0.5 mg [facility] gabapentin (NEURONTIN) 300 MG capsule 04-02 00:00: 00 04-03 00:00 :00 No 300mg Q.[id number] 3D Take 1 capsule (300 mg total) by mouth 3 (three) times daily for 90 days. [facility] HYDROcodone -acetaminop hen (NORCO 10-325) 10-325 mg per tablet 04-02 00:00: 00 04-03 00:00 :00 No 1{tbl} Take 1 tablet by mouth every 6 (six) hours as needed for up to 10 days. Max Daily Amount: 4 tablets [facility] methocarbam oL (ROBAXIN) 500 MG tablet 04-02 00:00: 00 04-03 00:00 :00 No 500mg Q.25D Take 1 tablet (500 mg total) by mouth 4 (four) times daily for 10 days. [facility] divalproex (DEPAKOTE) 500 MG EC tablet 04-02 00:00: 00 04-03 00:00 :00 No 500mg Q.5D Take 1 tablet (500 mg total) by mouth 2 (two) times daily for 90 days. [facility] clonazePAM (KlonoPIN) 0.5 MG tablet 04-02 00:00: 00 04-03 00:00 :00 No .25mg Take 0.5 tablets (0.25 mg total) by mouth 2 (two) times daily as needed for Anxiety for up to 30 days. Max Daily Amount: 0.5 mg [facility] divalproex (DEPAKOTE) 500 MG EC tablet 04-02 00:00: 00 04-03 00:00 :00 No 500mg Q.5D Take 1 tablet (500 mg total) by mouth 2 (two) times daily for 90 days. [facility] clonazePAM (KlonoPIN) 0.5 MG tablet 04-02 00:00: 00 04-03 00:00 :00 No .25mg Take 0.5 tablets (0.25 mg total) by mouth 2 (two) times daily as needed for Anxiety for up to 30 days. Max Daily Amount: 0.5 mg [facility] gabapentin (NEURONTIN) 300 MG capsule 04-02 00:00: 00 04-03 00:00 :00 No 300mg Q.[id number] 3D Take 1 capsule (300 mg total) by mouth 3 (three) times daily for 90 days. [facility] HYDROcodone -acetaminop hen (NORCO 10-325) 10-325 mg per tablet 04-02 00:00: 00 04-03 00:00 :00 No 1{tbl} Take 1 tablet by mouth every 6 (six) hours as needed for up to 10 days. Max Daily Amount: 4 tablets [facility] methocarbam oL (ROBAXIN) 500 MG tablet 04-02 00:00: 00 04-03 00:00 :00 No 500mg Q.25D Take 1 tablet (500 mg total) by mouth 4 (four) times daily for 10 days. [facility] lacosamide (VIMPAT) 200 mg in NaCl 0.9% (NS) 50 mL piggyback 12-11 19:45: 00 12-11 19:57 :00 No 200mg 200 mg, IV Piggyback, ONCE, 1 dose, On Arpita 12/11/22 at 1445, Administer over 30 Minutes, 50 mL
Facu lty member approving Restricted medication : Alfonso ALVARADO [facility] ketorolac (TORADOL) injection 15 mg 12-11 18:15: 00 12-11 17:25 :00 No 15mg 15 mg, Slow IV Push, ONCE, 1 dose, [facility] 12[facility]11/22 [facility] 1315[facility]500 [facility] 80 mL 12-11 16:30: 00 12-11 16:27 :00 No [id number] 80mL 80 mL, Intravenou s, ONCE, 1 dose, On Arpita 12/11/22 at 1130, Routine [facility] nitroglycer in (NITROL) 2 % ointment 0.5 Inch 12-11 15:30: 00 12-11 14:31 :00 No .5[in_u s] 0.5 Inch, Transderma l (Apply To Skin), ONCE, 1 dose, On [facility] 12[facility]11/22 at 1030[facility] 324 mg 12-11 15:30: 00 12-11 14:30 :00 No 324mg 324 mg, Oral, ONCE, 1 dose, On Thu12/11/22 at 1030, Routine [facility] ondansetron (ZOFRAN (PF)) injection 4 mg 12-11 15:30: 00 12-11 14:29 :00 No 4mg 4 mg, Slow IV Push, ONCE, 1 dose, On Thu12/11/22 at 1030, [facility] LOR[facility] (ATIVAN) injection 1 mg 12-11 15:00: 00 12-11 14:57 :00 No 1mg 1 mg, Slow IV Push, ONCE, 1 dose, On Thu12/11/22 at 1000, STAT [facility] Lacosamide (VIMPAT) 100 mg tablet 12-11 00:00: 00 Yes [id number] 100mg Take 1 tablet by mouth in the morning and 1 tablet in the evening. [facility] acetaminoph en-codeine (TYLENOL #3) 300-30 mg tablet 1 tablet 11-18 05:30: 00 11-18 05:30 :00 No 1{tbl} 1 tablet, Oral, ONCE, 1 dose, On Thu11/18/22 at 0030, [facility] methocarbam oL (ROBAXIN) tablet 1,000 mg 11-18 05:30: 00 11-18 05:30 :00 No 1000mg 1,000 mg, Oral, ONCE, 1 dose, On Thu11/18/22 at 0030, [facility] ondansetron (ZOFRAN (PF)) injection 4 mg 11-18 04:45: 00 11-18 03:38 :00 No 4mg 4 mg, Slow IV Push, ONCE, 1 dose, On Thu11/17/22 at 2345, [facility] morpHINE (4 mg/mL) injection 4 mg 11-18 03:45: 00 11-18 03:38 :00 No 4mg 4 mg, Slow IV Push, ONCE, 1 dose, On Thu11/17/22 at 2245, Routine [facility] methocarbam oL (ROBAXIN) injection 1,000 mg 11-18 00:30: 00 11-17 23:47 :00 No 1000mg 1,000 mg, Intravenou s, ONCE, 1 dose, On Thu11/17/22 at 1930, MICHAEL [facility] methocarbam oL 500 mg tablet 11-18 00:00: 00 Yes [id number] 1000mg Take 2 tablets by mouth 4 (four) times daily as needed for Pain (scale 7-10). [facility] methocarbam oL 500 mg tablet 11-18 00:00: 00 Yes [id number] 1000mg Take 2 tablets by mouth 4 (four) times daily as needed for Pain (scale 7-10). [facility] acetaminoph en-codeine 300-60 mg tablet 11-18 00:00: 00 11-26 04:59 :00 No [id number] 1{tbl} Take 1 tablet by mouth every 6 (six) hours as needed for Pain for up to 7 days. Indication s: acute pain [facility] ketorolac (TORADOL) injection 15 mg 11-18 00:00: 00 11-17 23:08 :00 No 15mg 15 mg, Slow IV Push, ONCE, 1 dose, On Thu11/17/22 at 1900, Routine [facility] morpHINE (4 mg/mL) injection 4 mg 11-17 23:45: 00 11-17 23:49 :00 No 4mg 4 mg, Slow IV Push, ONCE, 1 dose, On Thu11/17/22 at 1845, Routine [facility] ondansetron (ZOFRAN (PF)) injection 4 mg 11-17 23:15: 00 11-17 23:06 :00 No 4mg 4 mg, Slow IV Push, ONCE, 1 dose, On Thu11/17/22 at 1815, MICHAEL [facility] lisinopriL (PRINIVIL,Z ESTRIL) tablet 10 mg 08-02 15:00: 00 Yes 10mg 10 mg, Oral, DAILY, First dose on Thu08/02/22 at 0900, Until Discontinu ed, Routine [facility] predniSONE (DELTASONE) tablet 40 mg 08-02 15:00: 00 08-07 14:59 :00 No 40mg 40 mg, Oral, DAILY, 5 doses, First dose on Thu08/02/22 at 0900, Last dose on Thu08/06/22 at 0900, Routine [facility] morpHINE (2 mg/mL) injection 2 mg 08-02 03:29: 15 Yes 2mg 2 mg, Slow IV Push, Q4HPRN, Starting on Thu08/01/22 at 2129, Until Discontinu ed, Routine, Pain (scale 7-10) [facility] levETIRAcet am (KEPPRA) in NACL (ISO-OS) 1,000 mg/100 mL RTU 08-02 00:00: 00 Yes 1000mg 1,000 mg, IV Piggyback, Q12H, First dose on Thu08/01/22 at 1800, Until Discontinu ed, Administer over 15 Minutes, 100 mL [facility] MULTIVITAMI N ORAL 08-01 23:49: 34 Yes 1{tbl} Take 1 Tab by mouth daily. [facility] omega-3 fatty acids-vitam in E (FISH OIL) 1,000 mg capsule 08-01 23:49: 34 Yes 1g Take 1 g by mouth daily. [facility]CLARITIN LIQUI-GEL[facility] 10 mg capsule 08-01 23:49: 34 Yes Take by mouth daily. [facility] ondansetron 4 mg tablet 08-01 23:49: 34 Yes 4mg Take 4 mg by mouth every 8 (eight) hours as needed. [facility] pantoprazol e 40 mg EC tablet 08-01 23:49: 34 Yes 40mg Take 40 mg by mouth daily. [facility] MULTIVITAMI N ORAL 08-01 23:49: 34 Yes 1{tbl} Take 1 Tab by mouth daily. [facility] omega-3 fatty acids-vitam in E (FISH OIL) 1,000 mg capsule 08-01 23:49: 34 Yes 1g Take 1 g by mouth daily. [facility] loratadine (CLARITIN LIQUI-GEL) 10 mg capsule 08-01 23:49: 34 Yes Take by mouth daily. [facility] ondansetron 4 mg tablet 08-01 23:49: 34 Yes 4mg Take 4 mg by mouth every 8 (eight) hours as needed. [facility] pantoprazol e 40 mg EC tablet 08-01 23:49: 34 Yes 40mg Take 40 mg by mouth daily. [facility] MULTIVITAMI N ORAL 08-01 23:49: 34 Yes 1{tbl} Take 1 Tab by mouth daily. [facility] omega-3 fatty acids-vitam in E (FISH OIL) 1,000 mg capsule 08-01 23:49: 34 Yes 1g Take 1 g by mouth daily. [facility] loratadine (CLARITIN LIQUI-GEL) 10 mg capsule 08-01 23:49: 34 Yes Take by mouth daily. [facility] ondansetron 4 mg tablet 08-01 23:49: 34 Yes 4mg Take 4 mg by mouth every 8 (eight) hours as needed. [facility] pantoprazol e 40 mg EC tablet 08-01 23:49: 34 Yes 40mg Take 40 mg by mouth daily. [facility] MULTIVITAMI N ORAL 08-01 23:49: 34 Yes 1{tbl} Take 1 Tab by mouth daily. [facility] omega-3 fatty acids-vitam in E (FISH OIL) 1,000 mg capsule 08-01 23:49: 34 Yes 1g Take 1 g by mouth daily. [facility] loratadine (CLARITIN LIQUI-GEL) 10 mg capsule 08-01 23:49: 34 Yes Take by mouth daily. [facility] ondansetron 4 mg tablet 08-01 23:49: 34 Yes 4mg Take 4 mg by mouth every 8 (eight) hours as needed. [facility] pantoprazol e 40 mg EC tablet 08-01 23:49: 34 Yes 40mg Take 40 mg by mouth daily. [facility] MULTIVITAMI N ORAL 08-01 23:49: 34 Yes 1{tbl} Take 1 Tab by mouth daily. [facility] omega-3 fatty acids-vitam in E (FISH OIL) 1,000 mg capsule 08-01 23:49: 34 Yes 1g Take 1 g by mouth daily. [facility] loratadine (CLARITIN LIQUI-GEL) 10 mg capsule 08-01 23:49: 34 Yes Take by mouth daily. [facility] ondansetron 4 mg tablet 08-01 23:49: 34 Yes 4mg Take 4 mg by mouth every 8 (eight) hours as needed. [facility] pantoprazol e 40 mg EC tablet 08-01 23:49: 34 Yes 40mg Take 40 mg by mouth daily. [facility] benzonatate (TESSALON PERLES) capsule 100 mg 08-01 20:00: 00 Yes 100mg 100 mg, Oral, Q8H, First dose on Thu08/01/22 at 1400, Until Discontinu ed, Routine [facility] ipratropium -albuteroL (DUONEB) 0.5 mg-3 mg(2.5 mg base)/3 mL nebulizer solution 3 mL 08-01 18:00: 00 Yes 3mL 3 mL, Inhalation , QID, First dose on Thu08/01/22 at 1200, Until Discontinu ed, Routine [facility] ipratropium -albuteroL (DUONEB) 0.5 mg-3 mg(2.5 mg base)/3 mL nebulizer solution 3 mL 08-01 17:07: 07 Yes 3mL 3 mL, Inhalation , QIDPRN, Starting on Thu08/01/22 at 1107, Until Discontinu ed, MICHAEL, Wheezing, Shortness of Breath [facility] sulfur hexafluorid e microsphr (LUMASON) injection 5 mL 08-01 17:00: 00 08-01 17:00 :00 No [id number] 5mL 5 mL, Intravenou s, ONCE, 1 dose, On Thu08/01/22 at 1100, Routine
member of the legislative council approving Restricted medication : [facility] pantoprazol e (PROTONIX) EC tablet 40 mg 08-01 15:00: 00 Yes 40mg 40 mg, Oral, DAILY, First dose on Thu08/01/22 at 0900, Until Discontinu ed, Routine [facility] aspirin chewable tablet 81 mg 08-01 15:00: 00 Yes 81mg 81 mg, Oral, DAILY, First dose on Thu08/01/22 at 0900, Until Discontinu ed, Routine [facility] amLODIPine (NORVASC) tablet 10 mg 08-01 15:00: 00 Yes 10mg 10 mg, Oral, DAILY, First dose on Thu08/01/22 at 0900, Until Discontinu ed, Routine [facility] levETIRAcet am (KEPPRA) tablet 500 mg 08-01 14:00: 00 08-01 23:56 :35 No 500mg 500 mg, Oral, BID, First dose on Thu08/01/22 at 0800, Until Discontinu ed, Routine [facility] carvediloL (COREG) tablet 6.25 mg 08-01 14:00: 00 08-01 17:29 :13 No 6.25mg 6.25 mg, Oral, BID MEALS, First dose on Thu08/01/22 at 0800, Until Discontinu ed, [facility]ETIR[facility]et [facility] (KEPPRA) in NACL (ISO-OS) 1,000 mg/100 mL RTU 08-01 06:45: 00 08-01 06:32 :00 No 1000mg 1,000 mg, IV Piggyback, ONCE, 1 dose, On Thu08/01/22 at 0045, Administer over 15 Minutes, 100 mL [facility] LORazepam (ATIVAN) injection 1 mg 08-01 05:52: 54 Yes 1mg 1 mg, Slow IV Push, Q4HPRN, Starting on Thu07/31/22 at 2352, Until Discontinu ed, Routine, Seizures, Agitation, Anxiety, ETOH / Cocaine Withdrawl [facility] foLIC acid (FOLATE) tablet 1 mg 08-01 05:45: 00 Yes 1mg 1 mg, Oral, DAILY, First dose on Thu07/31/22 at 2345, Until Discontinu ed, Routine [facility] thiamine (VITAMIN B1) tablet 100 mg 08-01 05:45: 00 Yes 100mg 100 mg, Oral, DAILY, First dose on Thu07/31/22 at 2345, Until Discontinu ed, Routine [facility] LORazepam (ATIVAN) injection 0.5 mg 08-01 05:30: 00 08-01 05:29 :00 No .5mg 0.5 mg, Slow IV Push, ONCE, 1 dose, On Thu07/31/22 at 2330, MICHAEL [facility] atorvastati n (LIPITOR) tablet 40 mg 08-01 03:00: 00 Yes 40mg 40 mg, Oral, QHS, First dose on Thu07/31/22 at 2100, Until Discontinu ed, Routine [facility] diphenhydrA MINE (BENADRYL) tablet 25 mg 08-01 00:32: 02 Yes 25mg 25 mg, Oral, Q6HPRN, Starting on Thu07/31/22 at 1832, Until Discontinu ed, Routine, Itching [facility] enoxaparin (LOVENOX) injection 40 mg 07-31 23:00: 00 Yes 40mg 40 mg, Subcutaneo us, DAILY, First dose on Thu07/31/22 at 1700, Until Discontinu ed, Routine [facility] morpHINE (2 mg/mL) injection 2 mg 07-31 23:00: 00 07-31 22:29 :00 No 2mg 2 mg, Slow IV Push, ONCE, 1 dose, On Arpita 07/31/22 at 1700, Routine [facility] HYDROcodone -acetaminop hen (NORCO) 10-325 mg tablet 1 tablet 07-31 22:01: 36 Yes 1{tbl} 1 tablet, Oral, Q6HPRN, Starting on Arpita 07/31/22 at 1601, Until Discontinu ed, Routine, Pain (scale 7-10) [facility] HYDROcodone -acetaminop hen (NORCO 5) 5-325 mg tablet 1 tablet 07-31 22:01: 34 08-02 22:00 :34 No 1{tbl} 1 tablet, Oral, Q6HPRN, Starting on Arpita 07/31/22 at 1601, Until 08/02/22 at 1600, Routine, Pain (scale 4-6) [facility] acetaminoph en (TYLENOL) tablet 650 mg 07-31 22:01: 33 Yes 650mg 650 mg, Oral, Q6HPRN, Starting on Arpita 07/31/22 at 1601, Until Discontinu ed, Routine, Pain (scale 1-3) [facility] ketorolac (TORADOL) injection 15 mg 07-31 21:45: 00 07-31 20:50 :00 No 15mg 15 mg, Slow IV Push, ONCE, 1 dose, On Arpita 07/31/22 at 1545, Routine [facility] ondansetron (ZOFRAN (PF)) injection 4 mg 07-31 21:00: 00 07-31 20:47 :00 No 4mg 4 mg, Slow IV Push, ONCE, 1 dose, On Arpita 07/31/22 at 1500, MICHAEL [facility] furosemide (LASIX) injection 40 mg 07-31 20:15: 00 Yes 40mg 40 mg, Slow IV Push, Q12H, First dose on Arpita 07/31/22 at 1415, Until Discontinu ed, Routine [facility] methylpredn isolone sod succ (SOLU-MEDRO L) injection 125 mg 07-31 19:30: 00 07-31 18:54 :00 No 125mg 125 mg, Slow IV Push, ONCE NOW, 1 dose, On Arpita 07/31/22 at 1330, MICHAEL [facility] ipratropium -albuteroL (DUONEB) 0.5 mg-3 mg(2.5 mg base)/3 mL nebulizer solution 3 mL 07-31 19:30: 00 07-31 18:48 :00 No 3mL 3 mL, Inhalation , ONCE, 1 dose, On Arpita 07/31/22 at 1330, MICHAEL [facility] pantoprazol e 40 mg EC tablet 07-31 17:15: 40 Yes 40mg Take 40 mg by mouth daily. [facility] MULTIVITAMI N ORAL 07-31 15:50: 57 Yes 1{tbl} Take 1 Tab by mouth daily. [facility] loratadine (CLARITIN LIQUI-GEL) 10 mg capsule 07-31 15:50: 57 Yes Take by mouth daily. [facility] ondansetron 4 mg tablet 07-31 15:50: 57 Yes 4mg Take 4 mg by mouth every 8 (eight) hours as needed. [facility] omega-3 fatty acids-vitam in E (FISH OIL) 1,000 mg capsule 07-31 15:21: 27 Yes 1g Take 1 g by mouth daily. [facility] TAKE ONE (1) TABLET(S) BY MOUTH THREE TIMES A DAY NEEDED. 07-28 00:00: 00 No Methylpredn isolone 4 mg tablet 2021-07 0 00:00: 00 05-12 04:59 :00 No [id number] 4mg Take 1 tablet through enteral tube in the morning for 1 dose. [facility] Methylpredn isolone 4 mg tablet 2021-07 00:00: 00 05-11 04:59 :00 No [id number] 4mg Take 1 tablet through enteral tube every 12 (twelve) hours for 2 doses. [facility] MULTIVITAMI N ORAL 2021-07 14:44: 48 Yes 1{tbl} Take 1 Tab by mouth daily. [facility] omega-3 fatty acids-vitam in E (FISH OIL) 1,000 mg capsule 2021-07 14:44: 48 Yes 1g Take 1 g by mouth daily. [facility] loratadine (CLARITIN LIQUI-GEL) 10 mg capsule 2021-07 14:44: 48 Yes Take by mouth daily. [facility] ondansetron (ZOFRAN) 4 mg tablet 2021-07 14:44: 48 Yes 4mg Take 4 mg by mouth every 8 (eight) hours as needed. [facility] pantoprazol e (PROTONIX) 40 mg EC tablet 2021-07 14:44: 48 Yes 40mg Take 40 mg by mouth daily. [facility] DULoxetine (CYMBALTA) capsule 30 mg 2021-07 14:00: 00 Yes 30mg 30 mg, Oral, DAILY, First dose on Thu05/08/22 at 0900, Until Discontinu ed, Routine [facility] divalproex (DEPAKOTE) EC tablet 1,000 mg 2021-07 13:00: 00 Yes 1000mg 1,000 mg, Oral, BID, First dose (after last modificati on) on Thu05/08/22 at 0800, Until Discontinu ed, Routine [facility] Methylpredn isolone (MEDROL) tablet 4 mg 2021-07 08:50: 10 05-09 08:59 :00 No 4mg 4 mg, Oral, Q8H TAPER, 3 doses, First dose on Thu05/08/22 at 0400, Last dose on Thu05/08/22 at 2000, Routine [facility]ine (TYLENOL #3) 300-30 mg tablet 1 tablet 2021-07 04:07: 01 Yes 1{tbl} 1 tablet, Oral, Q4HPRN, Starting on Thu05/07/22 at 2307, Until Discontinu ed, Routine, Pain (scale 7-10) [facility] morpHINE (2 mg/mL) injection 2 mg 2021-07 03:03: 15 Yes 2mg 2 mg, Slow IV Push, Q4HPRN, Starting on Thu05/07/22 at 2203, Until Discontinu ed, Routine, Pain (scale 7-10) [facility] LORazepam (ATIVAN) tablet 1 mg 2021-07 00:02: 18 Yes 1mg 1 mg, Oral, Q6HPRN, Starting on Thu05/07/22 at 1902, Until Discontinu ed, Routine, Anxiety [facility] cyclobenzap rine 5 mg tablet 2021-07 00:00: 00 Yes [id number] 5mg Take 1 tablet by mouth in the morning and 1 tablet at noon and 1 tablet in the evening. [facility] cyclobenzap rine 5 mg tablet 2021-07 00:00: 00 Yes [id number] 5mg Take 1 tablet by mouth in the morning and 1 tablet at noon and 1 tablet in the evening. [facility] cyclobenzap rine 5 mg tablet 2021-07 00:00: 00 Yes [id number] 5mg Take 1 tablet by mouth in the morning and 1 tablet at noon and 1 tablet in the evening. [facility] cyclobenzap rine 5 mg tablet 2021-07 00:00: 00 Yes [id number] 5mg Take 1 tablet by mouth in the morning and 1 tablet at noon and 1 tablet in the evening. [facility] cyclobenzap rine 5 mg tablet 2021-07 00:00: 00 Yes [id number] 5mg Take 1 tablet by mouth in the morning and 1 tablet at noon and 1 tablet in the evening. [facility] cyclobenzap rine 5 mg tablet 2021-07 00:00: 00 Yes [id number] 5mg Take 1 tablet by mouth in the morning and 1 tablet at noon and 1 tablet in the evening. [facility] cyclobenzap rine 5 mg tablet 2021-07 00:00: 00 Yes [id number] 5mg Take 1 tablet by mouth in the morning and 1 tablet at noon and 1 tablet in the evening. [facility] DULoxetine (CYMBALTA) 30 mg capsule 2021-07 00:00: 00 06-08 05:59 :00 No [id number] 60mg Take 2 capsules by mouth in the morning for 30 days. [facility] divalproex (DEPAKOTE) 250 mg EC tablet 2021-07 00:00: 00 06-08 05:59 :00 No [id number] 750mg Take 3 tablets by mouth every 8 (eight) hours for 30 days. [facility] LORazepam 1 mg tablet 2021-07:00: 05-19 04:59 :00 No [id number] 1mg Take 1 tablet by mouth every 6 (six) hours as needed for Anxiety or Agitation for up to 10 days. [facility] acetaminoph en-codeine 300-30 mg tablet 2021-07 00:00: 00 05-16 04:59 :00 No [id number] 1{tbl} Take 1 tablet by mouth every 4 (four) hours as needed for Pain (scale 7-10) for up to 7 days. Indication s: acute pain [facility] Methylpredn isolone 4 mg tablet 2021-07 00:00: 00 05-10 04:59 :00 No [id number] 4mg Take 1 tablet by mouth every 8 (eight) hours for 3 doses. [facility] divalproex (DEPAKOTE) EC tablet 750 mg 2021-07 01:00: 00 05-08 09:40 :23 No 750mg 750 mg, Oral, BID, First dose on Thu05/06/22 at 2000, Until Discontinu ed, Routine [facility] levETIRAcet am (KEPPRA) tablet 1,500 mg 2021-07 13:00: 00 05-06 18:38 :22 No 1500mg 1,500 mg, Oral, BID, First dose (after last modificati on) on Thu05/06/22 at 0800, Until Discontinu ed, Routine [facility] levETIRAcet am (KEPPRA) in NACL (ISO-OS) 1,000 mg/100 mL RTU 2021-07 05:00: 00 05-06 05:46 :00 No 1000mg 1,000 mg, IV Piggyback, ONCE, 1 dose, On Thu05/06/22 at 0000, Administer over 15 Minutes, 100 mL [facility] methocarbam oL (ROBAXIN) tablet 500 mg 2021-07 02:15: 00 05-06 23:21 :42 No 500mg 500 mg, Oral, QID, First dose on Thu05/05/22 at 2115, Until Discontinu ed, Routine [facility] LORazepam (ATIVAN) tablet 2 mg 2021-07 01:30: 00 05-06 01:03 :00 No 2mg 2 mg, Oral, ONCE, 1 dose, On Thu05/05/22 at 2030, Routine [facility] levETIRAcet am (KEPPRA) tablet 1,000 mg 2021-07 01:00: 00 05-06 04:48 :06 No 1000mg 1,000 mg, Oral, BID, First dose on Thu05/05/22 at 2000, Until Discontinu ed, Routine [facility] enoxaparin (LOVENOX) injection 40 mg 2021-07 00:15: 00 Yes 40mg 40 mg, Subcutaneo us, Q24H, First dose on Thu05/05/22 at 1915, Until Discontinu ed, Routine [facility] levETIRAcet am (KEPPRA) in NACL (ISO-OS) 1,000 mg/100 mL RTU 2021-07 19:45: 00 05-05 20:05 :00 No 1000mg 1,000 mg, IV Piggyback, ONCE, 1 dose, On Thu05/05/22 at 1445, Administer over 15 Minutes, 100 mL [facility] clonazePAM (KLONOPIN) tablet 0.5 mg 2021-07 19:30: 00 Yes .5mg 0.5 mg, Oral, BID, First dose on Thu05/05/22 at 1430, Until Discontinu ed, Routine [facility] ibuprofen (IBU) tablet 600 mg 2021-07 19:30: 00 Yes 600mg 600 mg, Oral, TID MEALS, First dose on Thu05/05/22 at 1430, Until Discontinu ed, Routine [facility] gabapentin (NEURONTIN) capsule 300 mg 2021-07 19:30: 00 Yes 300mg 300 mg, Oral, TID, First dose on Thu05/05/22 at 1430, Until Discontinu ed, Routine [facility] cyclobenzap rine (FLEXERIL) tablet 5 mg 2021-07 19:30: 00 Yes 5mg 5 mg, Oral, TID, First dose on Thu05/05/22 at 1430, Until Discontinu ed, [facility]amin[facility] (TY[facility]OL) tablet 1,000 mg 2021-07 19:30: 00 Yes 1000mg 1,000 mg, Oral, Q8H, First dose on Thu05/05/22 at 1430, Until Discontinu ed, Routine [facility] pantoprazol e (PROTONIX) EC tablet 40 mg 2021-07 14:00: 00 Yes 40mg 40 mg, Oral, DAILY, First dose on Thu05/05/22 at 0900, Until Discontinu ed, Routine [facility] docusate (COLACE) capsule 100 mg 2021-07 14:00: 00 Yes 100mg 100 mg, Oral, DAILY, First dose on Thu05/05/22 at 0900, Until Discontinu ed, Routine [facility] HYDROcodone -acetaminop hen (NORCO) 10-325 mg tablet 1 tablet 2021-07 10:32: 02 05-05 19:18 :52 No 1{tbl} 1 tablet, Oral, Q6HPRN, Starting on Thu05/05/22 at 0532, Until Thu05/05/22 at 1418, Routine, Pain (scale 7-10) [facility] ondansetron (ZOFRAN (PF)) injection 4 mg 2021-07 06:49: 57 Yes 4mg 4 mg, Slow IV Push, Q6HPRN, Starting on Thu05/05/22 at 0149, Until Discontinu ed, Routine, Nausea and Vomiting (N/V) [facility] HYDROcodone -acetaminop hen (NORCO 5) 5-325 mg tablet 1 tablet 2021-07 06:49: 41 05-05 10:32 :14 No 1{tbl} 1 tablet, Oral, Q6HPRN, Starting on Thu05/05/22 at 0149, Until Thu05/05/22 at 0532, Routine, Pain (scale 7-10) [facility] acetaminoph en (TYLENOL) tablet 325 mg 2021-07 06:49: 39 05-05 19:18 :52 No 325mg 325 mg, Oral, Q4HPRN, Starting on Thu05/05/22 at 0149, Until Thu05/05/22 at 1418, Routine, Pain (scale 4-6) [facility] ondansetron (ZOFRAN) tablet 4 mg 2021-07 04:00: 00 05-05 03:26 :00 No 4mg 4 mg, Oral, ONCE, 1 dose, On Thu05/04/22 at 2300, Routine [facility] morpHINE (2 mg/mL) injection 2 mg 2021-07 04:00: 00 05-05 03:26 :00 No 2mg 2 mg, Slow IV Push, ONCE, 1 dose, On Thu05/04/22 at 2300, Routine [facility] aspirin 81 mg chewable tablet 9- 00:00: 00 Yes [id number] 81mg Take 1 tablet by mouth in the morning. [facility] aspirin 81 mg chewable tablet 04-16 00:00: 00 Yes [id number] 81mg Take 1 tablet by mouth in the morning. [facility] aspirin 81 mg chewable tablet 04-16 00:00: 00 Yes [id number] 81mg Take 1 tablet by mouth in the morning. [facility] aspirin 81 mg chewable tablet 04-16 00:00: 00 Yes [id number] 81mg Take 1 tablet by mouth in the morning. [facility] aspirin 81 mg chewable tablet 04-16 00:00: 00 Yes [id number] 81mg Take 1 tablet by mouth in the morning. [facility] aspirin 81 mg chewable tablet 04-16 00:00: 00 Yes [id number] 81mg Take 1 tablet by mouth in the morning. [facility] aspirin 81 mg chewable tablet 04-16 00:00: 00 Yes [id number] 81mg Take 1 tablet by mouth in the morning. [facility] aspirin 81 mg chewable tablet 04-16 00:00: 00 Yes [id number] 81mg Take 1 tablet by mouth in the morning. [facility] MULTIVITAMI N ORAL 04-15 17:39: 14 Yes 1{tbl} Take 1 Tab by mouth daily. [facility] omega-3 fatty acids-vitam in E (FISH OIL) 1,000 mg capsule 04-15 17:39: 14 Yes 1g Take 1 g by mouth daily. [facility] loratadine (CLARITIN LIQUI-GEL) 10 mg capsule 04-15 17:39: 14 Yes Take by mouth daily. [facility] ondansetron (ZOFRAN) 4 mg tablet 04-15 17:39: 14 Yes 4mg Take 4 mg by mouth every 8 (eight) hours as needed. [facility] pantoprazol e (PROTONIX) 40 mg EC tablet 04-15 17:39: 14 Yes 40mg Take 40 mg by mouth daily. [facility] lisinopril- hydrochloro thiazide 20-12.5 mg per tablet 04-15 15:58: 35 04-15 00:00 :00 No 1{tbl} Take 1 tablet by mouth daily. [facility] levetiracet am (KEPPRA ORAL) 04-15 15:58: 35 04-15 00:00 :00 No Take by mouth. [facility] acetaminoph en-codeine (TYLENOL #4) 300-60 mg tablet 1 tablet 04-15 05:39: 23 04-15 14:39 :42 No 1{tbl} 1 tablet, Oral, Q6HPRN, Starting on Thu04/15/22 at 0039, Until Thu04/15/22 at 0939, Routine, Pain (scale 4-6), Pain (scale 1-3) [facility] LORazepam (ATIVAN) tablet 2 mg 04-15 03:30: 00 04-15 10:27 :00 No 2mg 2 mg, Oral, ONCE, 1 dose, On Thu04/14/22 at 2230, Routine [facility] levETIRAcet am (KEPPRA) tablet 1,000 mg 04-15 02:45: 00 Yes 1000mg 1,000 mg, Oral, BID, First dose (after last modificati on) on Thu04/14/22 at 2145, Until Discontinu ed, Routine [facility] ketorolac (TORADOL) injection 15 mg 04-15 02:13: 00 04-15 02:22 :00 No 15mg 15 mg, Slow IV Push, ONCE, 1 dose, On Thu04/14/22 at 2115, Routine [facility] levETIRAcet am 1,000 mg tablet 04-15 00:00: 00 Yes [id number] 1000mg Take 1 tablet by mouth in the morning and 1 tablet in the evening. [facility] atorvastati n 40 mg tablet 04-15 00:00: 00 Yes [id number] 40mg Take 1 tablet by mouth at bedtime. [facility] atorvastati n 40 mg tablet 04-15 00:00: 00 Yes [id number] 40mg Take 1 tablet by mouth at bedtime. [facility] atorvastati n 40 mg tablet 04-15 00:00: 00 Yes [id number] 40mg Take 1 tablet by mouth at bedtime. [facility] atorvastati n 40 mg tablet 04-15 00:00: 00 Yes [id number] 40mg Take 1 tablet by mouth at bedtime. [facility] atorvastati n 40 mg tablet 04-15 00:00: 00 Yes [id number] 40mg Take 1 tablet by mouth at bedtime. [facility] atorvastati n 40 mg tablet 04-15 00:00: 00 Yes [id number] 40mg Take 1 tablet by mouth at bedtime. [facility] atorvastati n 40 mg tablet 04-15 00:00: 00 Yes [id number] 40mg Take 1 tablet by mouth at bedtime. [facility] atorvastati n 40 mg tablet 04-15 00:00: 00 Yes [id number] 40mg Take 1 tablet by mouth at bedtime. [facility] levETIRAcet am 1,000 mg tablet 04-15 00:00: 00 05-08 00:00 :00 No [id number] 1000mg Take 1 tablet by mouth in the morning and 1 tablet in the evening. [facility] lidocaine 5 % (700 mg/patch) patch 04-15 00:00: 00 04-23 04:59 :00 No [id number] 1{patch } Apply 1 Patch to area(s) in the morning for 7 days. [facility] HYDROcodone -acetaminop hen 5-325 mg tablet 04-15 00:00: 00 04-21 04:59 :00 No [id number] 1{tbl} Take 1 tablet by mouth every 6 (six) hours as needed for Pain (scale 7-10) for up to 5 days. Indication s: acute pain [facility] lidocaine (LIDODERM) 5 % (700 mg/patch) patch 1 Patch 04-14 21:45: 29 Yes 1{patch } 1 Patch, Topical, Administer over 12 Hours, [id number], Starting on Thu04/14/22 at 1645, Until Discontinu ed, Routine, Localized pain [facility] aspirin chewable tablet 81 mg 04-14 21:30: 00 Yes 81mg 81 mg, Oral, DAILY, First dose on Thu04/14/22 at 1630, Until Discontinu ed, Routine [facility] acetaminoph en (TYLENOL) tablet 650 mg 04-14 21:29: 25 Yes 650mg 650 mg, Oral, Q6HPRN, Starting on Thu04/14/22 at 1629, Until Discontinu ed, Routine, Pain (scale 1-3), Temp > 38.5 C, Temp > 37.5 C [facility] HYDROcodone -acetaminop hen (NORCO) 10-325 mg tablet 1 tablet 04-14 21:29: 02 04-15 05:39 :41 No 1{tbl} 1 tablet, Oral, Q6HPRN, Starting on Thu04/14/22 at 1629, Until Thu04/15/22 at 0039, Routine, Pain (scale 7-10), Pain (scale 4-6) [facility] sulfur hexafluorid e microsphr (LUMASON) injection 5 mL 04-14 16:45: 00 04-14 16:45 :00 No [id number] 5mL 5 mL, Intravenou s, ONCE, 1 dose, On Thu04/14/22 at 1145, Routine
member of the legislative council approving Restricted medication : [employer] [facility] clopidogreL (PLAVIX) 75 mg tablet 75 mg 04-14 14:00: 00 Yes 75mg 75 mg, Oral, DAILY, First dose on Thu04/14/22 at 0900, Until Discontinu ed, Routine [facility] pantoprazol e (PROTONIX) EC tablet 40 mg 04-14 14:00: 00 Yes 40mg 40 mg, Oral, DAILY, First dose on Thu04/14/22 at 0900, Until Discontinu ed, Routine [facility] atorvastati n (LIPITOR) tablet 40 mg 04-14 02:00: 00 Yes 40mg 40 mg, Oral, QHS, First dose on Thu04/13/22 at 2100, Until Discontinu ed, Routine [facility] LORazepam (ATIVAN) tablet 1 mg 04-14 01:30: 00 04-14 01:45 :00 No 1mg 1 mg, Oral, ONCE, 1 dose, On Thu04/13/22 at 2030, Routine [facility] methocarbam oL (ROBAXIN) tablet 500 mg 04-14 01:00: 00 Yes 500mg 500 mg, Oral, QID, First dose on Thu04/13/22 at 2000, Until Discontinu ed, Routine [facility] heparin (porcine) injection 5,000 Units 04-14 01:00: 00 Yes 5000U 5,000 Units, Subcutaneo us, Q12H, First dose on Thu04/13/22 at 2000, Until Discontinu ed, Routine [facility] acetaminoph en (TYLENOL) tablet 650 mg 04-14 00:23: 25 04-14 21:29 :42 No 650mg 650 mg, Oral, Q6HPRN, Starting on Thu04/13/22 at 1923, Until Thu04/14/22 at 1629, Routine, Pain (scale 1-3), Pain (scale 4-6), Temp > 38.5 C, Temp > 37.5 C [facility] lidocaine (LIDODERM) 5 % (700 mg/patch) patch 1 Patch 04-14 00:22: 00 04-14 13:51 :00 No 1{patch } 1 Patch, Topical, Administer over 12 Hours, ONCE, 1 dose, On Thu04/13/22 at 1930, [facility] (SUBLIMAZE (PF)) injection 50 mcg 04-13 20:30: 00 04-13 19:22 :00 No 50ug 50 mcg, Slow IV Push, ONCE, 1 dose, On 04/13/22 at 1530, Routine [facility] aspirin chewable tablet 650 mg 04-13 20:15: 00 04-13 20:15 :00 No 650mg 650 mg, Oral, ONCE, 1 dose, On 04/13/22 at 1515, Routine [facility] clopidogreL (PLAVIX) 300 mg tablet 300 mg 04-13 20:00: 00 04-13 19:15 :00 No 300mg 300 mg, Oral, ONCE, 1 dose, On 04/13/22 at 1500, Routine [facility] ondansetron (ZOFRAN (PF)) injection 4 mg 04-13 19:30: 00 04-13 19:22 :00 No 4mg 4 mg, Slow IV Push, ONCE, 1 dose, On 04/13/22 at 1430, MICHAEL [facility] iopamidol (ISOVUE 370-500 mL) injection 100 mL 04-13 18:31: 00 04-13 18:32 :00 No [id number] 100mL 100 mL, Intravenou s, ONCE, 1 dose, On 04/13/22 at 1345, Routine [facility] NaCl 0.9% (NS) injection 5 mL 04-13 18:14: 11 Yes 5mL 5 mL, Slow IV Push, PRN - SEE INSTRUCTIO NS, Starting on 04/13/22 at 1314, Until Discontinu ed, 10 mL [facility] aspirin chewable tablet 324 mg 11-24 14:00: 00 Yes 324mg 324 mg, Oral, DAILY, First dose on 11/24/21 at 0900, Until Discontinu ed, Routine [facility] metoclopram iker HCl (REGLAN) injection 10 mg 11-23 22:30: 00 11-23 21:24 :00 No 10mg 10 mg, Slow IV Push, ONCE, 1 dose, On 11/23/21 at 1730, [facility] acetaminoph en (TYLENOL) tablet 1,000 mg 11-23 22:15: 00 11-23 21:09 :00 No 1000mg 1,000 mg, Oral, ONCE, 1 dose, On 11/23/21 at 1715, [facility] ondansetron (ZOFRAN (PF)) injection 4 mg 11-23 21:45: 00 11-23 20:30 :00 No 4mg 4 mg, Slow IV Push, ONCE, 1 dose, On 11/23/21 at 1645, [facility] NaCl 0.9% (NS) bolus infusion 1,000 mL 11-23 21:30: 00 11-23 21:56 :00 No 1000mL at 999 mL/hr, 1,000 mL, IV Infusion, ONCE, 1 dose, On 11/23/21 at 1630, [facility] LORazepam (ATIVAN) injection 4 mg 11-23 21:30: 00 11-23 20:23 :00 No 4mg 4 mg, Slow IV Push, ONCE, 1 dose, On 11/23/21 at 1630, [facility] levETIRAcet am (KEPPRA) in NACL (ISO-OS) 1,500 mg/100 mL RTU 11-23 21:30: 00 11-23 20:47 :00 No 1500mg 1,500 mg, IV Piggyback, ONCE, 1 dose, On 11/23/21 at 1630, Administer over 15 Minutes, 100 mL [facility] Dose Unknown 4-08 00:00: 00 No Dose Unknown 0 4-08 00:00: 00 No Prozac 20 mg capsule 3-21 00:00: 00 No 1mg Prozac 20 mg capsule 3-21 00:00: 00 No 1mg Dose Unknown 0 3-16 00:00: 00 No Dose Unknown 0 3-16 00:00: 00 No Dose Unknown 2022-0 [...] 2022-0 3-14 00:00: 00 No Dose Unknown 2021-0 3-14 00:00: 00 No hydroxyzine HCl 50 mg tablet 2-0 3-09 00:00: 00 No 1mg Prozac 20 mg capsule 2-0 3-09 00:00: 00 No 1mg hydroxyzine HCl 50 mg tablet 2-0 3-09 00:00: 00 No 1mg Prozac 20 mg capsule 2-0 3-09 00:00: 00 No 1mg Dose Unknown 2021-0 3-06 00:00: 00 No Dose Unknown 2-0 3-06 00:00: 00 No Dose Unknown 2021-0 3-06 00:00: 00 No Dose Unknown 2-0 3-06 00:00: 00 No Dose Unknown 2-0 3-06 00:00: 00 No Dose Unknown 2-0 3-06 00:00: 00 No Dose Unknown 2-0 3-06 00:00: 00 No Dose Unknown 2-0 3-06 00:00: 00 No Dose Unknown 2-0 3-06 00:00: 00 No Dose Unknown 2-0 3-06 00:00: 00 No Wellbutrin XL 150 mg 24 hr tablet, extended release 2020-07 2 00:00: 00 No 1mg Dose Unknown 1 2 00:00: 00 No Wellbutrin XL 150 mg [...] y
Durat ion of Therapy: 7 days [facility] levoFLOXaci n (LEVAQUIN) tablet 500 mg 03-17 04:00: 00 03-17 04:22 :00 No 500mg 500 mg, Oral, ONCE, 1 dose, 03/16/21 at 2315, MICHAEL
Re ason for Anti-Infec tive: Documented Infection< br>Documen sherice Infection Site: Respirator y
Durat ion of Therapy: 7 days [facility] morpHINE injection 4 mg 03-17 01:58: 00 03-17 02:13 :00 No 4mg 4 mg, Slow IV Push, ONCE, 1 dose, 03/16/21 at 2100, STAT [facility] ondansetron (ZOFRAN (PF)) injection 4 mg 03-17 01:58: 00 03-17 02:12 :00 No 4mg 4 mg, Slow IV Push, ONCE, 1 dose, [facility]16[facility]21 [facility] 2100[facility] 03-17 01:58: 00 03-17 02:13 :00 No 4mg 4 mg, Slow IV Push, ONCE, 1 dose, 03/16/21 at 2100, STAT [facility] ondansetron (ZOFRAN (PF)) injection 4 mg 03-17 01:58: 00 03-17 02:12 :00 No 4mg 4 mg, Slow IV Push, ONCE, 1 dose, 03/16/21 at 2100, [facility] ipratropium -albuteroL (DUONEB) 0.5 mg-3 mg(2.5 mg base)/3 mL nebulizer solution 3 mL 03-17 01:57: 00 03-17 02:15 :00 No 3mL 3 mL, Inhalation , ONCE, 1 dose, 03/16/21 at 2099, [facility] NaCl 0.9% (NS) IV infusion 1,000 mL 03-17 01:57: 00 03-17 03:07 :00 No 1000mL at 999 mL/hr, Intravenou s, ONCE, 1 dose, 03/16/21 at 2099, [facility] methylpredn isolone sod succ (SOLU-MEDRO L) injection 125 mg 03-17 01:57: 00 03-17 02:11 :00 No 125mg 125 mg, Slow IV Push, ONCE, 1 dose, 03/16/21 at 2099, [facility] ipratropium -albuteroL (DUONEB) 0.5 mg-3 mg(2.5 mg base)/3 mL nebulizer solution 3 mL 03-17 01:57: 00 03-17 02:15 :00 No 3mL 3 mL, Inhalation , ONCE, 1 dose, 03/16/21 at 2099, [facility] ipratropium -albuteroL (DUONEB) 0.5 mg-3 mg(2.5 mg base)/3 mL nebulizer solution 3 mL 03-17 01:57: 00 03-17 02:15 :00 No 3mL 3 mL, Inhalation , ONCE, 1 dose, 03/16/21 at 2099, [facility] NaCl 0.9% (NS) IV infusion 1,000 mL 03-17 01:57: 00 03-17 03:07 :00 No 1000mL at 999 mL/hr, Intravenou s, ONCE, 1 dose, 03/16/21 at 2099, [facility] methylpredn isolone sod succ (SOLU-MEDRO L) injection 125 mg 03-17 01:57: 00 03-17 02:11 :00 No 125mg 125 mg, Slow IV Push, ONCE, 1 dose, 03/16/21 at 2100, STAT [facility] ipratropium -albuteroL (DUONEB) 0.5 mg-3 mg(2.5 mg base)/3 mL nebulizer solution 3 mL 03-17 01:57: 00 03-17 02:15 :00 No 3mL 3 mL, Inhalation , ONCE, 1 dose, 03/16/21 at 2100, MICHAEL [facility] levoFLOXaci n 500 mg tablet 03-17 00:00: 00 03-24 04:59 :00 No [id number] 500mg Take 1 tablet by mouth daily for 6 days. [facility] levoFLOXaci n 500 mg tablet 03-17 00:00: 00 03-24 04:59 :00 No [id number] 500mg Take 1 tablet by mouth daily for 6 days. [facility] levoFLOXaci n 500 mg tablet 03-17 00:00: 00 03-24 04:59 :00 No [id number] 500mg Take 1 tablet by mouth daily for 6 days. [facility] levoFLOXaci n 500 mg tablet 03-17 00:00: 00 03-24 04:59 :00 No [id number] 500mg Take 1 tablet by mouth daily for 6 days. [facility] predniSONE 10 mg tablet 03-17 00:00: 00 03-22 04:59 :00 No [id number] 30mg Take 3 tablets by mouth daily for 4 days. [facility] predniSONE 10 mg tablet 03-17 00:00: 00 03-22 04:59 :00 No [id number] 30mg Take 3 tablets by mouth daily for 4 days. [facility] predniSONE 10 mg tablet 03-17 00:00: 00 03-22 04:59 :00 No [id number] 30mg Take 3 tablets by mouth daily for 4 days. [facility] predniSONE 10 mg tablet 03-17 00:00: 00 03-22 04:59 :00 No [id number] 30mg Take 3 tablets by mouth daily for 4 days. [facility] albuterol (VENTOLIN) inhaler 4 Puff 03-15 01:45: 00 03-15 00:44 :00 No [id number] 4{puff} 4 Puff, Inhalation , ONCE, 1 dose, Arpita 03/14/21 at 2044, Routine [facility] dexamethaso ne (DECADRON) injection 10 mg 03-15 01:45: 00 03-15 00:45 :00 No [id number] 10mg 10 mg, Intramuscu lar, ONCE, 1 dose, Arpita 03/14/21 at 2044, Routine [facility] albuterol 2.5 mg /3 mL (0.083 %) nebulizer solution 03-15 00:00: 00 Yes [id number] 2.5mg Inhale 3 mL every 4 (four) hours as needed for Wheezing or Shortness of Breath. [facility] albuterol 2.5 mg /3 mL (0.083 %) nebulizer solution 03-15 00:00: 00 Yes [id number] 2.5mg Inhale 3 mL every 4 (four) hours as needed for Wheezing or Shortness of Breath. [facility] albuterol 2.5 mg /3 mL (0.083 %) nebulizer solution 03-15 00:00: 00 Yes [id number] 2.5mg Inhale 3 mL every 4 (four) hours as needed for Wheezing or Shortness of Breath. [facility] albuterol 2.5 mg /3 mL (0.083 %) nebulizer solution 03-15 00:00: 00 Yes [id number] 2.5mg Inhale 3 mL every 4 (four) hours as needed for Wheezing or Shortness of Breath. [facility] albuterol 2.5 mg /3 mL (0.083 %) nebulizer solution 03-15 00:00: 00 Yes [id number] 2.5mg Inhale 3 mL every 4 (four) hours as needed for Wheezing or Shortness of Breath. [facility] albuterol 2.5 mg /3 mL (0.083 %) nebulizer solution 03-15 00:00: 00 Yes [id number] 2.5mg Inhale 3 mL every 4 (four) hours as needed for Wheezing or Shortness of Breath. [facility] albuterol 2.5 mg /3 mL (0.083 %) nebulizer solution 03-15 00:00: 00 Yes [id number] 2.5mg Inhale 3 mL every 4 (four) hours as needed for Wheezing or Shortness of Breath. [facility] albuterol 2.5 mg /3 mL (0.083 %) nebulizer solution 03-15 00:00: 00 Yes [id number] 2.5mg Inhale 3 mL every 4 (four) hours as needed for Wheezing or Shortness of Breath. [facility] albuterol 2.5 mg /3 mL (0.083 %) nebulizer solution 03-15 00:00: 00 Yes [id number] 2.5mg Inhale 3 mL every 4 (four) hours as needed for Wheezing or Shortness of Breath. [facility] albuterol 2.5 mg /3 mL (0.083 %) nebulizer solution 03-15 00:00: 00 Yes [id number] 2.5mg Inhale 3 mL every 4 (four) hours as needed for Wheezing or Shortness of Breath. [facility] albuterol 2.5 mg /3 mL (0.083 %) nebulizer solution 03-15 00:00: 00 Yes [id number] 2.5mg Inhale 3 mL every 4 (four) hours as needed for Wheezing or Shortness of Breath. [facility] albuterol 2.5 mg /3 mL (0.083 %) nebulizer solution 03-15 00:00: 00 Yes [id number] 2.5mg Inhale 3 mL every 4 (four) hours as needed for Wheezing or Shortness of Breath. [facility] albuterol 2.5 mg /3 mL (0.083 %) nebulizer solution 03-15 00:00: 00 Yes [id number] 2.5mg Inhale 3 mL every 4 (four) hours as needed for Wheezing or Shortness of Breath. [facility] albuterol 2.5 mg /3 mL (0.083 %) nebulizer solution 03-15 00:00: 00 Yes [id number] 2.5mg Inhale 3 mL every 4 (four) hours as needed for Wheezing or Shortness of Breath. [facility] albuterol 2.5 mg /3 mL (0.083 %) nebulizer solution 03-15 00:00: 00 Yes [id number] 2.5mg Inhale 3 mL every 4 (four) hours as needed for Wheezing or Shortness of Breath. [facility] albuterol 2.5 mg /3 mL (0.083 %) nebulizer solution 03-15 00:00: 00 Yes [id number] 2.5mg Inhale 3 mL every 4 (four) hours as needed for Wheezing or Shortness of Breath. [facility] albuterol 2.5 mg /3 mL (0.083 %) nebulizer solution 03-15 00:00: 00 Yes [id number] 2.5mg Inhale 3 mL every 4 (four) hours as needed for Wheezing or Shortness of Breath. [facility] albuterol 2.5 mg /3 mL (0.083 %) nebulizer solution 03-15 00:00: 00 Yes [id number] 2.5mg Inhale 3 mL every 4 (four) hours as needed for Wheezing or Shortness of Breath. [facility] levETIRAcet am (KEPPRA) in NACL (ISO-OS) 1,000 mg/100 mL RTU 02-19 20:15: 00 02-19 19:30 :00 No 1000mg 1,000 mg, IV Infusion, ONCE, 1 dose, Thu02/19/21 at 1515, Administer over 15 Minutes, 100 mL [facility] levetiracet am (KEPPRA ORAL) 02-19 19:45: 33 Yes Take by mouth. [facility] levetiracet am (KEPPRA ORAL) 02-19 19:45: 33 Yes Take by mouth. [facility] levetiracet am (KEPPRA ORAL) 02-19 19:45: 33 Yes Take by mouth. [facility] levetiracet am (KEPPRA ORAL) 02-19 19:45: 33 Yes Take by mouth. [facility] levetiracet am (KEPPRA ORAL) 02-19 19:45: 33 Yes Take by mouth. [facility] levetiracet am (KEPPRA ORAL) 02-19 19:45: 33 Yes Take by mouth. [facility] LISINOPRIL- HYDROCHLORO THIAZIDE ORAL 02-19 19:41: 15 02-19 00:00 :00 No Take by mouth. [facility] dicyclomine (BENTYL) injection 20 mg 02-19 19:15: 00 02-19 19:04 :00 No 20mg 20 mg, Intramuscu lar, ONCE, 1 dose, Thu02/19/21 at 1415, Routine [facility] proMETHazin e (PHENERGAN) 25 mg in NaCl 0.9% (NS) 50 mL piggyback 02-19 19:15: 00 02-19 19:03 :00 No 25mg 25 mg, IV Piggyback, ONCE, 1 dose, e 02/19/21 at 1415, 50 mL [facility] morpHINE injection 4 mg 02-19 17:15: 00 02-19 17:05 :00 No 4mg 4 mg, Slow IV Push, ONCE, 1 dose, Thu02/19/21 at 1215, STAT [facility] NaCl 0.9% (NS) bolus infusion 1,000 mL 02-19 17:15: 00 02-19 19:04 :00 No 1000mL at 999 mL/hr, 1,000 mL, IV Infusion, ONCE, 1 dose, 02/19/21 at 1215, STAT [facility] ondansetron (ZOFRAN (PF)) injection 4 mg 02-19 17:00: 00 02-19 15:59 :00 No 4mg 4 mg, Slow IV Push, ONCE, 1 dose, 02/19/21 at 1200, MICHAEL [facility] iopamidol (ISOVUE 370-500 mL) injection 100 mL 02-19 16:35: 00 02-19 16:45 :00 No [id number] 100mL 100 mL, Intravenou s, ONCE, 1 dose, 02/19/21 at 1145, Routine [facility] levetiracet am (KEPPRA ORAL) 02-19 14:45: 33 Yes Take by mouth. [facility] levetiracet am (KEPPRA ORAL) 02-19 14:45: 33 Yes Take by mouth. [facility] levetiracet am (KEPPRA ORAL) 02-19 14:45: 33 Yes Take by mouth. [facility] levetiracet am (KEPPRA ORAL) 02-19 14:45: 33 Yes Take by mouth. [facility] levetiracet am (KEPPRA ORAL) 02-19 14:45: 33 Yes Take by mouth. [facility] proMETHazin e 25 mg tablet 02-19 00:00: 00 Yes [id number] 25mg Take 1 tablet by mouth every 6 (six) hours as needed for Nausea and Vomiting (N/V). [facility] dicyclomine 20 mg tablet 02-19 00:00: 00 Yes [id number] 20mg Take 1 tablet by mouth 4 (four) times daily as needed for Abdominal pain. [facility] proMETHazin e 25 mg tablet 0 02-19 00:00: 00 Yes [id number] 25mg Take 1 tablet by mouth every 6 (six) hours as needed for Nausea and Vomiting (N/V). [facility] dicyclomine 20 mg tablet 02-19 00:00: 00 Yes [id number] 20mg Take 1 tablet by mouth 4 (four) times daily as needed for Abdominal pain. [facility] proMETHazin e 25 mg tablet 02-19 00:00: 00 Yes [id number] 25mg Take 1 tablet by mouth every 6 (six) hours as needed for Nausea and Vomiting (N/V). [facility] dicyclomine 20 mg tablet 02-19 00:00: 00 Yes [id number] 20mg Take 1 tablet by mouth 4 (four) times daily as needed for Abdominal pain. [facility] proMETHazin e 25 mg tablet 02-19 00:00: 00 Yes [id number] 25mg Take 1 tablet by mouth every 6 (six) hours as needed for Nausea and Vomiting (N/V). [facility] dicyclomine 20 mg tablet 02-19 00:00: 00 Yes [id number] 20mg Take 1 tablet by mouth 4 (four) times daily as needed for Abdominal pain. [facility] proMETHazin e 25 mg tablet 02-19 00:00: 00 Yes [id number] 25mg Take 1 tablet by mouth every 6 (six) hours as needed for Nausea and Vomiting (N/V). [facility] dicyclomine 20 mg tablet 0 02-19 00:00: 00 Yes [id number] 20mg Take 1 tablet by mouth 4 (four) times daily as needed for Abdominal pain. [facility] proMETHazin e 25 mg tablet 0 02-19 00:00: 00 Yes [id number] 25mg Take 1 tablet by mouth every 6 (six) hours as needed for Nausea and Vomiting (N/V). [facility] dicyclomine 20 mg tablet 0 02-19 00:00: 00 Yes [id number] 20mg Take 1 tablet by mouth 4 (four) times daily as needed for Abdominal pain. [facility] proMETHazin e 25 mg tablet 0 02-19 00:00: 00 Yes [id number] 25mg Take 1 tablet by mouth every 6 (six) hours as needed for Nausea and Vomiting (N/V). [facility] dicyclomine 20 mg tablet 0 02-19 00:00: 00 Yes [id number] 20mg Take 1 tablet by mouth 4 (four) times daily as needed for Abdominal pain. [facility] proMETHazin e 25 mg tablet 02-19 00:00: 00 Yes [id number] 25mg Take 1 tablet by mouth every 6 (six) hours as needed for Nausea and Vomiting (N/V). [facility] dicyclomine 20 mg tablet 02-19 00:00: 00 Yes [id number] 20mg Take 1 tablet by mouth 4 (four) times daily as needed for Abdominal pain. [facility] proMETHazin e 25 mg tablet 0 02-19 00:00: 00 Yes [id number] 25mg Take 1 tablet by mouth every 6 (six) hours as needed for Nausea and Vomiting (N/V). [facility] dicyclomine 20 mg tablet 2020-0 02-19 00:00: 00 Yes [id number] 20mg Take 1 tablet by mouth 4 (four) times daily as needed for Abdominal pain. [facility] proMETHazin e 25 mg tablet 0 02-19 00:00: 00 Yes [id number] 25mg Take 1 tablet by mouth every 6 (six) hours as needed for Nausea and Vomiting (N/V). [facility] dicyclomine 20 mg tablet 0 02-19 00:00: 00 Yes [id number] 20mg Take 1 tablet by mouth 4 (four) times daily as needed for Abdominal pain. [facility] proMETHazin e 25 mg tablet 0 02-19 00:00: 00 Yes [id number] 25mg Take 1 tablet by mouth every 6 (six) hours as needed for Nausea and Vomiting (N/V). [facility] dicyclomine 20 mg tablet 02-19 00:00: 00 Yes [id number] 20mg Take 1 tablet by mouth 4 (four) times daily as needed for Abdominal pain. [facility] proMETHazin e 25 mg tablet 02-19 00:00: 00 Yes [id number] 25mg Take 1 tablet by mouth every 6 (six) hours as needed for Nausea and Vomiting (N/V). [facility] dicyclomine 20 mg tablet 02-19 00:00: 00 Yes [id number] 20mg Take 1 tablet by mouth 4 (four) times daily as needed for Abdominal pain. [facility] proMETHazin e 25 mg tablet 02-19 00:00: 00 Yes [id number] 25mg Take 1 tablet by mouth every 6 (six) hours as needed for Nausea and Vomiting (N/V). [facility] dicyclomine 20 mg tablet 02-19 00:00: 00 Yes [id number] 20mg Take 1 tablet by mouth 4 (four) times daily as needed for Abdominal pain. [facility] proMETHazin e 25 mg tablet 02-19 00:00: 00 Yes [id number] 25mg Take 1 tablet by mouth every 6 (six) hours as needed for Nausea and Vomiting (N/V). [facility] dicyclomine 20 mg tablet 0 02-19 00:00: 00 Yes [id number] 20mg Take 1 tablet by mouth 4 (four) times daily as needed for Abdominal pain. [facility] proMETHazin e 25 mg tablet 0 02-19 00:00: 00 Yes [id number] 25mg Take 1 tablet by mouth every 6 (six) hours as needed for Nausea and Vomiting (N/V). [facility] dicyclomine 20 mg tablet 2020-0 02-19 00:00: 00 Yes [id number] 20mg Take 1 tablet by mouth 4 (four) times daily as needed for Abdominal pain. [facility] proMETHazin e 25 mg tablet 02-19 00:00: 00 Yes [id number] 25mg Take 1 tablet by mouth every 6 (six) hours as needed for Nausea and Vomiting (N/V). [facility] dicyclomine 20 mg tablet 02-19 00:00: 00 Yes [id number] 20mg Take 1 tablet by mouth 4 (four) times daily as needed for Abdominal pain. [facility] proMETHazin e 25 mg tablet 02-19 00:00: 00 Yes [id number] 25mg Take 1 tablet by mouth every 6 (six) hours as needed for Nausea and Vomiting (N/V). [facility] dicyclomine 20 mg tablet 02-19 00:00: 00 Yes [id number] 20mg Take 1 tablet by mouth 4 (four) times daily as needed for Abdominal pain. [facility] proMETHazin e 25 mg tablet 02-19 00:00: 00 Yes [id number] 25mg Take 1 tablet by mouth every 6 (six) hours as needed for Nausea and Vomiting (N/V). [facility] dicyclomine 20 mg tablet 02-19 00:00: 00 Yes [id number] 20mg Take 1 tablet by mouth 4 (four) times daily as needed for Abdominal pain. [facility] proMETHazin e 25 mg tablet 02-19 00:00: 00 Yes [id number] 25mg Take 1 tablet by mouth every 6 (six) hours as needed for Nausea and Vomiting (N/V). [facility] dicyclomine 20 mg tablet 02-19 00:00: 00 Yes [id number] 20mg Take 1 tablet by mouth 4 (four) times daily as needed for Abdominal pain. [facility] ZONISAMIDE 100 mg capsule 11-15 00:00: 00 Yes TAKE 1 CAPSULE BY MOUTH TWICE A DAY [facility] ZONISAMIDE 100 mg capsule 11-15 00:00: 00 02-19 00:00 :00 No TAKE 1 CAPSULE BY MOUTH TWICE A DAY [facility] ondansetron (ZOFRAN) 4 mg tablet 02-09 20:05: 01 Yes 4mg Take 4 mg by mouth every 8 (eight) hours as needed. [facility] pantoprazol e (PROTONIX) 40 mg EC tablet 02-09 20:05: 01 Yes 40mg Take 40 mg by mouth daily. [facility] ondansetron (ZOFRAN) 4 mg tablet 02-09 20:05: 01 Yes 4mg Take 4 mg by mouth every 8 (eight) hours as needed. [facility] pantoprazol e (PROTONIX) 40 mg EC tablet 02-09 20:05: 01 Yes 40mg Take 40 mg by mouth daily. [facility] LISINOPRIL- HYDROCHLORO THIAZIDE ORAL 02-09 20:05: 01 Yes Take by mouth. [facility] ondansetron (ZOFRAN) 4 mg tablet 02-09 20:05: 01 Yes 4mg Take 4 mg by mouth every 8 (eight) hours as needed. [facility] pantoprazol e (PROTONIX) 40 mg EC tablet 02-09 20:05: 01 Yes 40mg Take 40 mg by mouth daily. [facility] ondansetron (ZOFRAN) 4 mg tablet 02-09 20:05: 01 Yes 4mg Take 4 mg by mouth every 8 (eight) hours as needed. [facility] pantoprazol e (PROTONIX) 40 mg EC tablet 02-09 20:05: 01 Yes 40mg Take 40 mg by mouth daily. [facility] ondansetron (ZOFRAN) 4 mg tablet 02-09 20:05: 01 Yes 4mg Take 4 mg by mouth every 8 (eight) hours as needed. [facility] pantoprazol e (PROTONIX) 40 mg EC tablet 02-09 20:05: 01 Yes 40mg Take 40 mg by mouth daily. [facility] ondansetron (ZOFRAN) 4 mg tablet 02-09 20:05: 01 Yes 4mg Take 4 mg by mouth every 8 (eight) hours as needed. [facility] pantoprazol e (PROTONIX) 40 mg EC tablet 02-09 20:05: 01 Yes 40mg Take 40 mg by mouth daily. [facility] ondansetron (ZOFRAN) 4 mg tablet 02-09 20:05: 01 Yes 4mg Take 4 mg by mouth every 8 (eight) hours as needed. [facility] pantoprazol e (PROTONIX) 40 mg EC tablet 02-09 20:05: 01 Yes 40mg Take 40 mg by mouth daily. [facility] lisinopril- hydrochloro thiazide 20-12.5 mg per tablet 02-09 20:03: 30 Yes 1{tbl} Take 1 tablet by mouth daily. [facility] lisinopril- hydrochloro thiazide 20-12.5 mg per tablet 02-09 20:03: 30 Yes 1{tbl} Take 1 tablet by mouth daily. [facility] lisinopril- hydrochloro thiazide 20-12.5 mg per tablet 02-09 20:03: 30 Yes 1{tbl} Take 1 tablet by mouth daily. [facility] lisinopril- hydrochloro thiazide 20-12.5 mg per tablet 02-09 20:03: 30 Yes 1{tbl} Take 1 tablet by mouth daily. [facility] lisinopril- hydrochloro thiazide 20-12.5 mg per tablet 02-09 20:03: 30 Yes 1{tbl} Take 1 tablet by mouth daily. [facility] lisinopril- hydrochloro thiazide 20-12.5 mg per tablet 02-09 20:03: 30 Yes 1{tbl} Take 1 tablet by mouth daily. [facility] lisinopril- hydrochloro thiazide 20-12.5 mg per tablet 02-09 20:03: 30 Yes 1{tbl} Take 1 tablet by mouth daily. [facility] omega-3 fatty acids-vitam in E (FISH OIL) 1,000 mg capsule 02-09 19:59: 52 Yes 1g Take 1 g by mouth daily. [facility] omega-3 fatty acids-vitam in E (FISH OIL) 1,000 mg capsule 02-09 19:59: 52 Yes 1g Take 1 g by mouth daily. [facility] omega-3 fatty acids-vitam in E (FISH OIL) 1,000 mg capsule 02-09 19:59: 52 Yes 1g Take 1 g by mouth daily. [facility] omega-3 fatty acids-vitam in E (FISH OIL) 1,000 mg capsule 02-09 19:59: 52 Yes 1g Take 1 g by mouth daily. [facility] omega-3 fatty acids-vitam in E (FISH OIL) 1,000 mg capsule 02-09 19:59: 52 Yes 1g Take 1 g by mouth daily. [facility] omega-3 fatty acids-vitam in E (FISH OIL) 1,000 mg capsule 02-09 19:59: 52 Yes 1g Take 1 g by mouth daily. [facility] omega-3 fatty acids-vitam in E (FISH OIL) 1,000 mg capsule 02-09 19:59: 52 Yes 1g Take 1 g by mouth daily. [facility] MULTIVITAMI N ORAL 02-09 19:58: 14 Yes 1{tbl} Take 1 Tab by mouth daily. [facility] loratadine (CLARITIN LIQUI-GEL) 10 mg capsule 02-09 19:58: 14 Yes Take by mouth daily. [facility] MULTIVITAMI N ORAL 02-09 19:58: 14 Yes 1{tbl} Take 1 Tab by mouth daily. [facility] loratadine (CLARITIN LIQUI-GEL) 10 mg capsule 02-09 19:58: 14 Yes Take by mouth daily. [facility] MULTIVITAMI N ORAL 02-09 19:58: 14 Yes 1{tbl} Take 1 Tab by mouth daily. [facility] loratadine (CLARITIN LIQUI-GEL) 10 mg capsule 02-09 19:58: 14 Yes Take by mouth daily. [facility] MULTIVITAMI N ORAL 02-09 19:58: 14 Yes 1{tbl} Take 1 Tab by mouth daily. [facility] loratadine (CLARITIN LIQUI-GEL) 10 mg capsule 02-09 19:58: 14 Yes Take by mouth daily. [facility] MULTIVITAMI N ORAL 02-09 19:58: 14 Yes 1{tbl} Take 1 Tab by mouth daily. [facility] loratadine (CLARITIN LIQUI-GEL) 10 mg capsule 02-09 19:58: 14 Yes Take by mouth daily. [facility] MULTIVITAMI N ORAL 02-09 19:58: 14 Yes 1{tbl} Take 1 Tab by mouth daily. [facility] loratadine (CLARITIN LIQUI-GEL) 10 mg capsule 02-09 19:58: 14 Yes Take by mouth daily. [facility] MULTIVITAMI N ORAL 02-09 19:58: 14 Yes 1{tbl} Take 1 Tab by mouth daily. [facility] loratadine (CLARITIN LIQUI-GEL) 10 mg capsule 02-09 19:58: 14 Yes Take by mouth daily. [facility] ondansetron (ZOFRAN) 4 mg tablet 02-09 15:05: 01 Yes 4mg Take 4 mg by mouth every 8 (eight) hours as needed. [facility] pantoprazol e (PROTONIX) 40 mg EC tablet 02-09 15:05: 01 Yes 40mg Take 40 mg by mouth daily. [facility] ondansetron (ZOFRAN) 4 mg tablet 02-09 15:05: 01 Yes 4mg Take 4 mg by mouth every 8 (eight) hours as needed. [facility] pantoprazol e (PROTONIX) 40 mg EC tablet 02-09 15:05: 01 Yes 40mg Take 40 mg by mouth daily. [facility] ondansetron (ZOFRAN) 4 mg tablet 02-09 15:05: 01 Yes 4mg Take 4 mg by mouth every 8 (eight) hours as needed. [facility] pantoprazol e (PROTONIX) 40 mg EC tablet 02-09 15:05: 01 Yes 40mg Take 40 mg by mouth daily. [facility] ondansetron (ZOFRAN) 4 mg tablet 02-09 15:05: 01 Yes 4mg Take 4 mg by mouth every 8 (eight) hours as needed. [facility] pantoprazol e (PROTONIX) 40 mg EC tablet 02-09 15:05: 01 Yes 40mg Take 40 mg by mouth daily. [facility] ondansetron (ZOFRAN) 4 mg tablet 02-09 15:05: 01 Yes 4mg Take 4 mg by mouth every 8 (eight) hours as needed. [facility] pantoprazol e (PROTONIX) 40 mg EC tablet 02-09 15:05: 01 Yes 40mg Take 40 mg by mouth daily. [facility] lisinopril- hydrochloro thiazide 20-12.5 mg per tablet 02-09 15:03: 30 Yes 1{tbl} Take 1 tablet by mouth daily. [facility] lisinopril- hydrochloro thiazide 20-12.5 mg per tablet 02-09 15:03: 30 Yes 1{tbl} Take 1 tablet by mouth daily. [facility] lisinopril- hydrochloro thiazide 20-12.5 mg per tablet 02-09 15:03: 30 Yes 1{tbl} Take 1 tablet by mouth daily. [facility] lisinopril- hydrochloro thiazide 20-12.5 mg per tablet 02-09 15:03: 30 Yes 1{tbl} Take 1 tablet by mouth daily. [facility] lisinopril- hydrochloro thiazide 20-12.5 mg per tablet 02-09 15:03: 30 Yes 1{tbl} Take 1 tablet by mouth daily. [facility] omega-3 fatty acids-vitam in E (FISH OIL) 1,000 mg capsule 02-09 14:59: 52 Yes 1g Take 1 g by mouth daily. [facility] omega-3 fatty acids-vitam in E (FISH OIL) 1,000 mg capsule 02-09 14:59: 52 Yes 1g Take 1 g by mouth daily. [facility] omega-3 fatty acids-vitam in E (FISH OIL) 1,000 mg capsule 02-09 14:59: 52 Yes 1g Take 1 g by mouth daily. [facility] omega-3 fatty acids-vitam in E (FISH OIL) 1,000 mg capsule 02-09 14:59: 52 Yes 1g Take 1 g by mouth daily. [facility] omega-3 fatty acids-vitam in E (FISH OIL) 1,000 mg capsule 02-09 14:59: 52 Yes 1g Take 1 g by mouth daily. [facility] MULTIVITAMI N ORAL 02-09 14:58: 14 Yes 1{tbl} Take 1 Tab by mouth daily. [facility] loratadine (CLARITIN LIQUI-GEL) 10 mg capsule 02-09 14:58: 14 Yes Take by mouth daily. [facility] MULTIVITAMI N ORAL 02-09 14:58: 14 Yes 1{tbl} Take 1 Tab by mouth daily. [facility] loratadine (CLARITIN LIQUI-GEL) 10 mg capsule 02-09 14:58: 14 Yes Take by mouth daily. [facility] MULTIVITAMI N ORAL 02-09 14:58: 14 Yes 1{tbl} Take 1 Tab by mouth daily. [facility] loratadine (CLARITIN LIQUI-GEL) 10 mg capsule 02-09 14:58: 14 Yes Take by mouth daily. [facility] MULTIVITAMI N ORAL 02-09 14:58: 14 Yes 1{tbl} Take 1 Tab by mouth daily. [facility] loratadine (CLARITIN LIQUI-GEL) 10 mg capsule 02-09 14:58: 14 Yes Take by mouth daily. [facility] MULTIVITAMI N ORAL 02-09 14:58: 14 Yes 1{tbl} Take 1 Tab by mouth daily. [facility] loratadine (CLARITIN LIQUI-GEL) 10 mg capsule 02-09 14:58: 14 Yes Take by mouth daily. [facility] proMETHazin e (PHENERGAN) 25 mg tablet 11-20 00:00: 00 Yes 25mg Take 1 tablet by mouth every 6 (six) hours as needed for Nausea and Vomiting (N/V). [facility] proMETHazin e (PHENERGAN) 25 mg tablet 11-20 00:00: 00 02-19 00:00 :00 No 25mg Take 1 tablet by mouth every 6 (six) hours as needed for Nausea and Vomiting (N/V). [facility] carvedilol (COREG) 6.25 mg tablet 09-19 00:00: 00 Yes 6.25mg Take 1 Tab by mouth 2 (two) times daily with meals. [facility] amLODIPine (NORVASC) 10 mg tablet 09-19 00:00: 00 Yes 10mg Take 1 Tab by mouth daily. [facility] lisinopril (PRINIVIL,Z ESTRIL) 40 mg tablet 09-19 00:00: 00 Yes 40mg Take 1 Tab by mouth daily. [facility] carvedilol (COREG) 6.25 mg tablet 09-19 00:00: 00 Yes 6.25mg Take 1 Tab by mouth 2 (two) times daily with meals. [facility] amLODIPine (NORVASC) 10 mg tablet 09-19 00:00: 00 Yes 10mg Take 1 Tab by mouth daily. [facility] lisinopril (PRINIVIL,Z ESTRIL) 40 mg tablet 09-19 00:00: 00 Yes 40mg Take 1 Tab by mouth daily. [facility] carvedilol (COREG) 6.25 mg tablet 09-19 00:00: 00 Yes 6.25mg Take 1 Tab by mouth 2 (two) times daily with meals. [facility] amLODIPine (NORVASC) 10 mg tablet 09-19 00:00: 00 Yes 10mg Take 1 Tab by mouth daily. [facility] lisinopril (PRINIVIL,Z ESTRIL) 40 mg tablet 09-19 00:00: 00 Yes 40mg Take 1 Tab by mouth daily. [facility] carvedilol (COREG) 6.25 mg tablet 09-19 00:00: 00 Yes 6.25mg Take 1 Tab by mouth 2 (two) times daily with meals. [facility] amLODIPine (NORVASC) 10 mg tablet 09-19 00:00: 00 Yes 10mg Take 1 Tab by mouth daily. [facility] lisinopril (PRINIVIL,Z ESTRIL) 40 mg tablet 09-19 00:00: 00 Yes 40mg Take 1 Tab by mouth daily. [facility] carvedilol (COREG) 6.25 mg tablet 09-19 00:00: 00 Yes 6.25mg Take 1 Tab by mouth 2 (two) times daily with meals. [facility] amLODIPine (NORVASC) 10 mg tablet 09-19 00:00: 00 Yes 10mg Take 1 Tab by mouth daily. [facility] lisinopril (PRINIVIL,Z ESTRIL) 40 mg tablet 09-19 00:00: 00 Yes 40mg Take 1 Tab by mouth daily. [facility] carvedilol (COREG) 6.25 mg tablet 09-19 00:00: 00 Yes 6.25mg Take 1 Tab by mouth 2 (two) times daily with meals. [facility] amLODIPine (NORVASC) 10 mg tablet 09-19 00:00: 00 Yes 10mg Take 1 Tab by mouth daily. [facility] lisinopril (PRINIVIL,Z ESTRIL) 40 mg tablet 09-19 00:00: 00 Yes 40mg Take 1 Tab by mouth daily. [facility] carvedilol (COREG) 6.25 mg tablet 09-19 00:00: 00 Yes 6.25mg Take 1 Tab by mouth 2 (two) times daily with meals. [facility] amLODIPine (NORVASC) 10 mg tablet 09-19 00:00: 00 Yes 10mg Take 1 Tab by mouth daily. [facility] lisinopril (PRINIVIL,Z ESTRIL) 40 mg tablet 09-19 00:00: 00 Yes 40mg Take 1 Tab by mouth daily. [facility] carvedilol (COREG) 6.25 mg tablet 09-19 00:00: 00 Yes 6.25mg Take 1 Tab by mouth 2 (two) times daily with meals. [facility] amLODIPine (NORVASC) 10 mg tablet 09-19 00:00: 00 Yes 10mg Take 1 Tab by mouth daily. [facility] lisinopril (PRINIVIL,Z ESTRIL) 40 mg tablet 09-19 00:00: 00 Yes 40mg Take 1 Tab by mouth daily. [facility] carvedilol (COREG) 6.25 mg tablet 09-19 00:00: 00 Yes 6.25mg Take 1 Tab by mouth 2 (two) times daily with meals. [facility] amLODIPine (NORVASC) 10 mg tablet 09-19 00:00: 00 Yes 10mg Take 1 Tab by mouth daily. [facility] lisinopril (PRINIVIL,Z ESTRIL) 40 mg tablet 09-19 00:00: 00 Yes 40mg Take 1 Tab by mouth daily. [facility] carvedilol (COREG) 6.25 mg tablet 09-19 00:00: 00 Yes 6.25mg Take 1 Tab by mouth 2 (two) times daily with meals. [facility] amLODIPine (NORVASC) 10 mg tablet 09-19 00:00: 00 Yes 10mg Take 1 Tab by mouth daily. [facility] lisinopril (PRINIVIL,Z ESTRIL) 40 mg tablet 09-19 00:00: 00 Yes 40mg Take 1 Tab by mouth daily. [facility] carvedilol (COREG) 6.25 mg tablet 09-19 00:00: 00 Yes 6.25mg Take 1 Tab by mouth 2 (two) times daily with meals. [facility] amLODIPine (NORVASC) 10 mg tablet 09-19 00:00: 00 Yes 10mg Take 1 Tab by mouth daily. [facility] lisinopril (PRINIVIL,Z ESTRIL) 40 mg tablet 09-19 00:00: 00 Yes 40mg Take 1 Tab by mouth daily. [facility] carvedilol (COREG) 6.25 mg tablet 09-19 00:00: 00 Yes 6.25mg Take 1 Tab by mouth 2 (two) times daily with meals. [facility] amLODIPine (NORVASC) 10 mg tablet 09-19 00:00: 00 Yes 10mg Take 1 Tab by mouth daily. [facility] lisinopril (PRINIVIL,Z ESTRIL) 40 mg tablet 09-19 00:00: 00 Yes 40mg Take 1 Tab by mouth daily. [facility] carvedilol (COREG) 6.25 mg tablet 09-19 00:00: 00 Yes 6.25mg Take 1 Tab by mouth 2 (two) times daily with meals. [facility] amLODIPine (NORVASC) 10 mg tablet 09-19 00:00: 00 Yes 10mg Take 1 Tab by mouth daily. [facility] lisinopril (PRINIVIL,Z ESTRIL) 40 mg tablet 09-19 00:00: 00 Yes 40mg Take 1 Tab by mouth daily. [facility] carvedilol (COREG) 6.25 mg tablet 09-19 00:00: 00 Yes 6.25mg Take 1 Tab by mouth 2 (two) times daily with meals. [facility] amLODIPine (NORVASC) 10 mg tablet 09-19 00:00: 00 Yes 10mg Take 1 Tab by mouth daily. [facility] lisinopril (PRINIVIL,Z ESTRIL) 40 mg tablet 09-19 00:00: 00 Yes 40mg Take 1 Tab by mouth daily. [facility] carvedilol (COREG) 6.25 mg tablet 09-19 00:00: 00 Yes 6.25mg Take 1 Tab by mouth 2 (two) times daily with meals. [facility] amLODIPine (NORVASC) 10 mg tablet 09-19 00:00: 00 Yes 10mg Take 1 Tab by mouth daily. [facility] lisinopril (PRINIVIL,Z ESTRIL) 40 mg tablet 09-19 00:00: 00 Yes 40mg Take 1 Tab by mouth daily. [facility] carvedilol (COREG) 6.25 mg tablet 09-19 00:00: 00 Yes 6.25mg Take 1 Tab by mouth 2 (two) times daily with meals. [facility] amLODIPine (NORVASC) 10 mg tablet 09-19 00:00: 00 Yes 10mg Take 1 Tab by mouth daily. [facility] lisinopril (PRINIVIL,Z ESTRIL) 40 mg tablet 09-19 00:00: 00 Yes 40mg Take 1 Tab by mouth daily. [facility] carvedilol (COREG) 6.25 mg tablet 09-19 00:00: 00 Yes 6.25mg Take 1 Tab by mouth 2 (two) times daily with meals. [facility] amLODIPine (NORVASC) 10 mg tablet 09-19 00:00: 00 Yes 10mg Take 1 Tab by mouth daily. [facility] lisinopril (PRINIVIL,Z ESTRIL) 40 mg tablet 09-19 00:00: 00 Yes 40mg Take 1 Tab by mouth daily. [facility] carvedilol (COREG) 6.25 mg tablet 09-19 00:00: 00 Yes 6.25mg Take 1 Tab by mouth 2 (two) times daily with meals. [facility] amLODIPine (NORVASC) 10 mg tablet 09-19 00:00: 00 Yes 10mg Take 1 Tab by mouth daily. [facility] lisinopril (PRINIVIL,Z ESTRIL) 40 mg tablet 09-19 00:00: 00 Yes 40mg Take 1 Tab by mouth daily. [facility] carvedilol (COREG) 6.25 mg tablet 09-19 00:00: 00 Yes 6.25mg Take 1 Tab by mouth 2 (two) times daily with meals. [facility] amLODIPine (NORVASC) 10 mg tablet 09-19 00:00: 00 Yes 10mg Take 1 Tab by mouth daily. [facility] lisinopril (PRINIVIL,Z ESTRIL) 40 mg tablet 09-19 00:00: 00 Yes 40mg Take 1 Tab by mouth daily. [facility] carvedilol (COREG) 6.25 mg tablet 09-19 00:00: 00 Yes 6.25mg Take 1 Tab by mouth 2 (two) times daily with meals. [facility] amLODIPine (NORVASC) 10 mg tablet 09-19 00:00: 00 Yes 10mg Take 1 Tab by mouth daily. [facility] lisinopril (PRINIVIL,Z ESTRIL) 40 mg tablet 09-19 00:00: 00 Yes 40mg Take 1 Tab by mouth daily. [facility] Vital Signs Vital Name Observation [...] Systolic blood pressure 2022-12-11 20:00:00 142 mm[Hg] [facility] Diastolic blood pressure 2022-12-11 20:00:00 90 mm[Hg] [facility] Respiratory rate 2022-12-11 20:00:00 24 /min [facility] Heart rate 2022-12-11 18:00:00 101 /min [facility] in Arterial blood by Pulse oximetry 2022-12-11 18:00:00 93 /min [facility] BMI 2022-12-11 13:55:00 35.43 kg/m2 [facility] Body temperature 2022-12-11 13:55:00 37.22 Radha [facility] Body weight 2022-12-11 13:55:00 90.719 kg [facility] Systolic blood pressure 2022-11-18 05:34:00 152 mm[Hg] [facility] Diastolic blood pressure 2022-11-18 05:34:00 98 mm[Hg] [facility] Heart rate 2022-11-18 05:34:00 88 /min [facility] Respiratory rate 2022-11-18 05:34:00 18 /min [facility] Oxygen saturation in Arterial blood by Pulse oximetry 2022-11-18 05:34:00 97 /min [facility] Body temperature 2022-11-17 22:28:00 37.06 Radha [facility] Body height 2022-11-17 22:28:00 160 cm [facility] Body weight 2022-11-17 22:28:00 99.791 kg [facility] BMI 2022-11-17 22:28:00 38.97 kg/m2 [facility] Heart rate 2022-08-02 02:02:00 108 /min [facility] Respiratory rate 2022-08-02 02:02:00 28 /min [facility] Oxygen saturation in Arterial blood by Pulse oximetry 2022-08-02 02:02:00 97 /min [facility] Body temperature 2022-08-02 01:00:00 36.44 Radha [facility] Systolic blood pressure 2022-08-01 23:29:00 145 mm[Hg] [facility] Diastolic blood pressure 2022-08-01 23:29:00 103 mm[Hg] [facility] Body weight 2022-08-01 09:16:00 97.977 kg [facility] BMI 2022-08-01 09:16:00 38.26 kg/m2 [facility] Body height 2022-07-31 21:54:00 160 cm [facility] Systolic blood pressure 2022-05-08 16:40:00 146 mm[Hg] [facility] Diastolic blood pressure 2022-05-08 16:40:00 96 mm[Hg] [facility] Heart rate 2022-05-08 16:40:00 112 /min [facility] Body temperature 2022-05-08 16:40:00 36.78 Radha [facility] Respiratory rate 2022-05-08 16:40:00 18 /min [facility] Oxygen saturation in Arterial blood by Pulse oximetry 2022-05-08 16:40:00 94 /min [facility] Body height 2022-05-05 23:44:00 160 cm [facility] Body weight 2022-05-05 23:37:00 81.647 kg [facility] BMI 2022-05-05 23:37:00 31.89 kg/m2 [facility] Systolic blood pressure 2022-04-15 18:52:00 104 mm[Hg] [facility] Diastolic blood pressure 2022-04-15 18:52:00 82 mm[Hg] [facility] Heart rate 2022-04-15 18:52:00 114 /min [facility] Oxygen saturation in Arterial blood by Pulse oximetry 2022-04-15 18:52:00 98 /min [facility] Body temperature 2022-04-15 16:14:00 36.28 Radha [facility] Respiratory rate 2022-04-15 16:14:00 17 /min [facility] Body height 2022-04-13 21:08:00 160 cm [facility] Body weight 2022-04-13 21:08:00 91.173 kg [facility] BMI 2022-04-13 21:08:00 35.61 kg/m2 [facility] Systolic blood pressure 2021-11-23 21:30:00 132 mm[Hg] [facility] Diastolic blood pressure 2021-11-23 21:30:00 76 mm[Hg] [facility] Heart rate 2021-11-23 21:30:00 95 /min [facility] Respiratory rate 2021-11-23 21:30:00 13 /min [facility] Oxygen saturation in Arterial blood by Pulse oximetry 2021-11-23 21:30:00 97 /min [facility] Body temperature 2021-11-23 20:15:00 37.56 Radha [facility] Systolic blood pressure 2021-03-17 03:00:00 117 mm[Hg] [facility] Diastolic blood pressure 2021-03-17 03:00:00 76 mm[Hg] [facility] Heart rate 2021-03-17 03:00:00 104 /min [facility] Respiratory rate 2021-03-17 03:00:00 28 /min [facility] Oxygen saturation in Arterial blood by Pulse oximetry 2021-03-17 03:00:00 96 /min [facility] Body temperature 2021-03-17 00:39:00 37.11 Radha [facility] Body height 2021-03-17 00:39:00 160 cm [facility] Body weight 2021-03-17 00:39:00 58.968 kg [facility] BMI 2021-03-17 00:39:00 23.03 kg/m2 [facility] Systolic blood pressure 2021-03-15 00:14:00 149 mm[Hg] [facility] Diastolic blood pressure 2021-03-15 00:14:00 78 mm[Hg] [facility] Heart rate 2021-03-15 00:14:00 100 /min [facility] Body temperature 2021-03-15 00:14:00 37.33 Radha [facility] Respiratory rate 2021-03-15 00:14:00 24 /min [facility] Body height 2021-03-15 00:14:00 160 cm [facility] Body weight 2021-03-15 00:14:00 58.968 kg [facility] BMI 2021-03-15 00:14:00 23.03 kg/m2 [facility] Oxygen saturation in Arterial blood by Pulse oximetry 2021-03-15 00:14:00 98 /min [facility] Systolic blood pressure 2021-02-19 18:00:00 131 mm[Hg] [facility] Diastolic blood pressure 2021-02-19 18:00:00 80 mm[Hg] [facility] Heart rate 2021-02-19 18:00:00 83 /min [facility] Respiratory rate 2021-02-19 18:00:00 18 /min [facility] Oxygen saturation in Arterial blood by Pulse oximetry 2021-02-19 18:00:00 100 /min [facility] Body temperature 2021-02-19 15:47:00 37 Radha [facility] Body height 2021-02-19 15:47:00 160 cm [facility] Body weight 2021-02-19 15:47:00 58.968 kg [facility] BMI 2021-02-19 15:47:00 23.03 kg/m2 [facility] Heart rate 2023-06-16 17:00:00 108 /min [facility] Systolic blood pressure 2023-06-16 15:31:00 101 mm[Hg] [facility] Diastolic blood pressure 2023-06-16 15:31:00 81 mm[Hg] [facility] Body temperature 2023-06-16 15:31:00 36.61 Radha [facility] Respiratory rate 2023-06-16 15:31:00 18 /min [facility] Oxygen saturation in Arterial blood by Pulse oximetry 2023-06-16 15:31:00 94 /min [facility] Body weight 2023-06-16 05:26:00 86.047 kg [facility] BMI 2023-06-16 05:26:00 33.60 kg/m2 [facility] Body height 2023-06-13 04:00:00 160 cm [facility] Systolic blood pressure 2023-06-04 13:02:00 93 mm[Hg] [facility] Diastolic blood pressure 2023-06-04 13:02:00 57 mm[Hg] [facility] Heart rate 2023-06-04 13:02:00 101 /min [facility] Respiratory rate 2023-06-04 13:02:00 22 /min [facility] Oxygen saturation in Arterial blood by Pulse oximetry 2023-06-04 13:02:00 95 /min room air [facility] Body temperature 2023-06-04 11:46:00 35.28 Radha [facility] Systolic blood pressure 2023-05-28 16:00:00 154 mm[Hg] [facility] Diastolic blood pressure 2023-05-28 16:00:00 82 mm[Hg] [facility] Heart rate 2023-05-28 16:00:00 89 /min [facility] Body temperature 2023-05-28 16:00:00 36.67 Radha [facility] Respiratory rate 2023-05-28 16:00:00 16 /min [facility] Oxygen saturation in Arterial blood by Pulse oximetry 2023-05-28 16:00:00 97 /min [facility] Body height 2023-05-28 07:00:00 157.5 cm [facility] Body weight 2023-05-28 07:00:00 87.544 kg [facility] BMI 2023-05-28 07:00:00 35.30 kg/m2 [facility] Body height 2023-05-26 09:12:00 157.5 cm [facility] Body weight 2023-05-26 09:12:00 87.091 kg [facility] BMI 2023-05-26 09:12:00 35.12 kg/m2 [facility] Respiratory rate 2023-04-02 16:35:00 18 /min [facility] Oxygen saturation in Arterial blood by Pulse oximetry 2023-04-02 16:35:00 98 /min [facility] Systolic blood pressure 2023-04-02 12:00:00 147 mm[Hg] [facility] Diastolic blood pressure 2023-04-02 12:00:00 97 mm[Hg] [facility] Heart rate 2023-04-02 12:00:00 106 /min [facility] Body temperature 2023-04-02 12:00:00 36.28 Radha [facility] Body height 2023-03-30 02:14:00 157.5 cm [facility] Body weight 2023-03-30 02:14:00 92.08 kg [facility] BMI 2023-03-30 02:14:00 37.13 kg/m2 [facility] Respiratory rate 2022-08-03 14:40:00 18 /min [facility] Systolic blood pressure 2022-08-03 12:13:00 112 mm[Hg] [facility] Diastolic blood pressure 2022-08-03 12:13:00 77 mm[Hg] [facility] Heart rate 2022-08-03 12:13:00 115 /min [facility] Oxygen saturation in Arterial blood by Pulse oximetry 2022-08-03 12:13:00 93 /min [facility] Body temperature 2022-08-03 12:00:00 36.83 Radha [facility] Body height 2022-08-02 21:52:00 160.2 cm [facility] Body weight 2022-08-02 21:52:00 95 kg [facility] BMI 2022-08-02 21:52:00 37.02 kg/m2 [facility] BP Systolic 2022-07-24 13:31:00 136 mm[Hg] [...] Performing Clinician Source TRANSESOPHAGEAL ECHO 2023-06-16 11:05:00 Aydee Go [facility] T SPOT TB 2023-06-15 04:51:00 [facility] FUNGITELL R B-D-GLUCAN WITH REFLEX TO TITER 2023-06-15 04:51:00 [facility] ASPERGILLUS GALACTOMANNAN ANTIGEN 2023-06-15 04:51:00 [facility] VANCOMYCIN LEVEL, TROUGH 2023-06-15 04:51:00 Kaylene Mendosa [facility] T-SPOT(R).TB (QUEST) 2023-06-15 04:27:00 System, Provider Not In [facility] ECHO W CONTRAST & DOPPLER 2023-06-14 09:22:00 [facility] HEMOGLOBIN A1C 2023-06-14 04:08:00 Cara Burgess [facility] CBC (HEMOGRAM ONLY) 2023-06-14 04:08:00 [facility] BASIC METABOLIC PANEL 2023-06-14 04:08:00 [facility] CRYPTOCOCCAL ANTIGEN 2023-06-13 17:21:00 [facility] W/HIV-1&2 AB 2023-06-13 17:21:00 [facility] VENOUS DOPPLER ARM, LEFT 2023-06-13 17:20:00 Cara Burgess [facility] LEGIONELLA ANTIGEN, URINE 2023-06-13 17:00:00 [facility] SPUTUM CULTURE + GRAM STAIN 2023-06-13 14:33:00 [facility] MR LUMBAR SPINE WITH & WITHOUT IV CONTRAST 2023-06-13 13:03:47 Burt Nelson [facility] ECG 12-LEAD 2023-06-13 11:47:02 [facility] ECG 12-LEAD 2023-06-13 11:47:02 Unknown, Hl7 [facility] ECG 12-LEAD 2023-06-13 11:47:02 Unknown, Hl7 [facility] MRSA SCREEN 2023-06-13 09:19:00 [facility] CBC W/PLT COUNT & AUTO DIFFERENTIAL 2023-06-13 06:03:00 Cara Burgess [facility] COMPREHENSIVE METABOLIC PANEL 2023-06-13 06:03:00 Cara Burgess [facility] PROTHROMBIN TIME/INR 2023-06-13 06:03:00 Cara Burgess [facility] CREATINE KINASE (CK) 2023-06-13 06:03:00 Abbi Nazarioterry [facility] CBC W/PLT COUNT & AUTO DIFFERENTIAL 2023-06-13 06:03:00 Cara Burgess [facility] BLOOD CULTURE 2023-06-13 06:02:00 Cara Burgess [facility] CBC W/PLT COUNT & AUTO DIFFERENTIAL 2023-06-02 04:41:00 Sunil Chu Nimo [facility] BASIC METABOLIC PANEL 2023-06-02 04:41:00 Sunil Chu [facility] MAGNESIUM 2023-06-02 04:41:00 Sunil Chu [facility] PHOSPHORUS 2023-06-02 04:41:00 Sunil Chu [facility] CBC W/PLT COUNT & AUTO DIFFERENTIAL 2023-06-02 04:41:00 Sunil Chu Nimo [facility] XR SPINE LUMBAR 1 VIEW 2023-06-01 10:31:00 [facility]UM[facility] 1 V[facility] 2023-06-01 09:46:00 [facility] LAMINECTOMY, SPINE, LUMBAR 2023-06-01 09:10:00 [place] [facility] PROCEDURE W/ C-ARM 2023-06-01 09:10:00 [facility] LAMINECTOMY, SPINE, LUMBAR 2023-06-01 07:30:00 [facility] PROCEDURE W/ C-ARM 2023-06-01 07:30:00 [place] [facility] SCREEN, URINE 2023-06-01 04:33:00 [place] [facility] BASIC METABOLIC PANEL 2023-05-31 22:55:00 [place] Gomez [facility] CBC W/PLT COUNT & AUTO DIFFERENTIAL 2023-05-31 22:55:00 Gomez, [place] [facility] PT/APTT 2023-05-31 22:55:00 [place] Gomez [facility] CBC W/PLT COUNT & AUTO DIFFERENTIAL 2023-05-31 22:55:00 [place] Gomez [facility] CT NECK SOFT TISSUE WITHOUT IV CONTRAST 2023-05-31 09:39:30 [facility] TYPE AND SCREEN, AUTOMATED 2023-05-31 09:13:00 [facility] BASIC METABOLIC PANEL 2023-05-29 06:43:00 [facility] CBC W/PLT COUNT & AUTO DIFFERENTIAL 2023-05-29 06:43:00 [facility] CBC W/PLT COUNT & AUTO DIFFERENTIAL 2023-05-29 06:43:00 [facility] XR SPINE CERVICAL 2 OR 3 VIEWS 2023-05-28 18:57:00 [facility] FL FLUORO NON-SPECIFIC UP TO 1 HOUR 2023-05-28 10:48:00 Jose [facility] FL FLUORO NON-SPECIFIC UP TO 1 HOUR 2023-05-28 10:07[facility]00 [facility], CERVICAL, ANTERIOR APPROACH, WITH FUSION 2023-05-28 08:15:00 Jose [facility] INSERTION, HARDWARE, SPINAL 2023-05-28 08:15:00 Jose [facility] PROCEDURE, ALLOGRAFT, FOR SPINE SURGERY 2023-05-28 08:15:00 Jose [facility] AUTOGRAFT FOR SPINE SURGERY 2023-05-28 08:15:00 Jose [facility] PROCEDURE W/ C-ARM 2023-05-28 08:15:00 Jose [facility] NEUROPHYSIOLOGIC MONITORING, INTRAOPERATIVE 2023-05-28 08:15:00 Jose [facility] PROCEDURE, USING OPERATING MICROSCOPE 2023-05-28 08:15:00 Adam Garcia [facility] HCG, QUANTITATIVE, 2023-05-28 07:42:00 Yue Bui Dumont [facility] TYPE AND SCREEN, AUTOMATED 2023-05-28 07:42:00 Quin Scruggs [facility] XR CHEST 1 VIEW PORTABLE / BEDSIDE 2023-04-01 15:32:16 Thomas Lozoya [facility] B-TYPE NATRIURETIC FACTOR (BNP) 2023-04-01 13:32:00 [facility] ECHO W CONTRAST & DOPPLER 2023-03-31 20:18:37 Jasen [facility] MR CERVICAL SPINE WITHOUT IV CONTRAST 2023-03-31 09:25:00 Selin Lewis [facility] CBC (HEMOGRAM ONLY) 2023-03-31 03:45:00 Jasen [facility] COMPREHENSIVE METABOLIC PANEL 2023-03-31 03:45:00 Jasen [facility] ARTERIAL DOPPLER LEGS BILATERAL 2023-03-30 [facility]:45[facility]HA[facility]/ DOPPLER) ONLY 2023-03-30 15:44:00 Jasen [facility] ECG 12-LEAD 2023-03-30 13:06:22 Jasen [facility] ECG 12-LEAD 2023-03-30 13:06:22 Unknown, Hl7 [facility] ECG 12-LEAD 2023-03-30 13:06:22 Unknown, Hl7 [facility] MR THORACIC SPINE WITHOUT IV CONTRAST 2023-03-30 12:29:58 [facility] MR LUMBAR SPINE WITHOUT IV CONTRAST 2023-03-30 11:58:[address] [facility] AWAKE AND DROWSY 2023-03-30 09:57:53 Liudmila Smart [facility] VALPROIC ACID LEVEL, TOTAL 2023-03-30 09:06:00 Liudmila Smart [facility] URINALYSIS W/ REFLEX URINE CULTURE 2023-03-30 03:54:00 EricGloria amaya Desean [facility] CBC (HEMOGRAM ONLY) 2023-03-30 03:52:00 Jasen [facility] COMPREHENSIVE METABOLIC PANEL 2023-03-30 03:52:00 Jasen [facility] HEMOGLOBIN A1C 2023-03-30 03:52:00 [facility] PT/APTT 2023-03-30 03:52:00 Thomas Lozoya [facility] EKG-SCANNED 2023-03-29 00:00:00 Provider, Default Scanning [facility] CT HEAD WO CONTRAST 2022-12-11 18:36:49 Alfonso Alvarado [facility] URINE DRUG (IMMUNOASSAY) - COMPREHENSIVE DRUG SCREEN 2022-12-11 17:13:00 Alfonso Alvarado [facility] URINALYSIS 2022-12-11 17:13:00 Alfonso Alvarado [facility] CT CHEST PULMONARY ANGIOGRAM 2022-12-11 16:26:39 Alfonso Alvarado [facility] MAGNESIUM 2022-12-11 14:57:00 Alfonso Alvarado [facility] COMP. METABOLIC PANEL ([id number]) 2022-12-11 14:57:00 Alfonso Alvarado [facility] D-DIMER 2022-12-11 14:15:00 Alfonso Alvarado [facility] XR CHEST 1 VW 2022-12-11 14:10:26 Alfonso Alvarado [facility] TROPONIN I 2022-12-11 14:02:00 Alfonso Alvarado [facility] CBC WITH DIFF 2022-12-11 14:02:00 Alfonso Alvarado [facility] N-TERMINAL PRO-BNP 2022-12-11 14:02:00 Alfonso Alvarado [facility] HB ECG ROUTINE & RHYTHM STRIP 2022-12-11 14:01:08 Alfonso Alvarado [facility] CONSENT/REFUSAL FOR DIAGNOSI S AND TREATMENT 2022-12-11 13:52:01 Doctor Unassigned, [facility] ECG 12-LEAD 2022-08-03 05:03:32 Unknown, [facility] ECG 12-LEAD 2022-08-03 05:03:32 Unknown, [facility] ECG 12-LEAD 2022-08-03 05:03:32 Unknown, [facility] LIPID PANEL 2022-08-02 21:14:00 [facility] TSH/FREE T4 IF INDICATED 2022-08-02 21:14:00 [facility] VIT[facility] B12 2022-08-02 21:14:00 [facility] HEMOGLOBIN A1C 2022-08-02 21:14:00 [facility] COMPREHENSIVE METABOLIC PANEL 2022-08-02 21:14:00 [facility] CBC W/PLT COUNT & AUTO DIFFERENTIAL 2022-08-02 21:14:00 [facility] RPR 2022-08-02 21:14:00 [facility] HC LAB HIV-1 AG W/HIV-1&2 AB 2022-08-02 21:14:00 [facility] C-REACTIVE PROTEIN 2022-08-02 21:14:00 [facility] CBC W/PLT COUNT & AUTO DIFFERENTIAL 2022-08-02 21:14:00 [facility] EKG-SCANNED 2022-08-02 00:00:00 Provider, Default Scanning [facility] CT HEAD WO CONTRAST 2022-08-01 23:52:15 Lorenza Lowry [facility] GALV ONLY - INFLUENZA A B RS V PCR 2022-08-01 18:28:00 Letitia Chambers [facility] TRANSTHORACIC ECHO (TTE) COMPLETE W/ CONTRAST 2022-08-01 14:42:00 Kylee Montez [facility] MAGNESIUM 2022-08-01 10:42:00 Lorenza Lowry [facility] BASIC METABOLIC PANEL (NA, K , CL, CO2, GLUCOSE, BUN, CREATININE, CA) 2022-08-01 10:42:00 Lorenza Lowry [facility] CBC WITH DIFF 2022-08-01 10:42:00 [facility] N-TERMINAL PRO-BNP 2022-08-01 10:42:00 Kylee Montez [facility] POCT GLUCOSE (AUTOMATED) 2022-08-01 06:56:00 [facility]22-07-31 22:31:36 [facility] URINALYSIS 2022-07-31 20:52:00 [facility] URINE DRUG (IMMUNOASSAY) - COMPREHENSIVE DRUG SCREEN W/O REFLEX 2022-07-31 20:52:00 [facility] XR CHEST 1 VW 2022-07-31 18:45:17 [facility]-07-31 17:58:00 [facility] TROPONIN I 2022-07-31 17:58:00 [facility] COMP. METABOLIC PANEL ([id number]) 2022-07-31 17:58:00 [facility] CBC WITH DIFF 2022-07-31 17:58:00 [facility] PROTHROMBIN TIME / INR 2022-07-31 17:58:00 [facility] ACTIVATED PARTIAL THRMPLAS DAVID 2022-07-31 17:58:00 [facility] N-TERMINAL PRO-BNP 2022-07-31 17:58:00 [facility] HB ECG ROUTINE & RHYTHM STRIP 2022-07-31 17:46:28 [facility] NOTICE OF PRIVACY PRACTICES 2022-07-31 17:35:38 Doctor Unassigned, [facility] CONSENT/REFUSAL FOR DIAGNOSI S AND TREATMENT 2022-07-31 17:35:13 Doctor Unassigned, [facility] PHOSPHORUS 2022-05-08 05:51:00 Shefali Azeem [facility] MAGNESIUM 2022-05-08 05:51:00 Shefali Azeem [facility] BASIC METABOLIC PANEL (NA, K , CL, CO2, GLUCOSE, BUN, CREATININE, CA) 2022-05-08 05:51:00 Shefali [facility] CBC WITH DIFF 2022-05-08 05:51:00 Shefali [facility] BASIC METABOLIC PANEL (NA, K , CL, CO2, GLUCOSE, BUN, CREATININE, CA) 2022-05-07 07:09:00 John Cintron [facility] CBC WITH DIFF 2022-05-07 07:09:00 John Cintron [facility] POCT GLUCOSE (AUTOMATED) 2022-05-07 01:16:00 Brandyn Ibrahim [facility] HB ABO GROUPING 2022-05-06 05:07:00 Ismael Dunn [facility] BASIC METABOLIC PANEL (NA, K , CL, CO2, GLUCOSE, BUN, CREATININE, CA) 2022-05-06 05:04:00 Shefali [facility] CBC WITH DIFF 2022-05-06 05:04:00 Shefali [facility] KEPPRA (LEVETIRACETAM) 2022-05-06 05:04:00 Shefali [facility] MR LUMBAR SPINE WO CONTRAST 2022-05-06 02:54:37 Ender Monet [facility] ELECTROENCEPHALOGRAM 2022-05-06 00:00:00 John Cintron [facility] BASIC METABOLIC PANEL (NA, K , CL, CO2, GLUCOSE, BUN, CREATININE, CA) 2022-05-05 07:57:00 Ismael Dunn [facility] CBC WITH DIFF 2022-05-05 07:57:00 Ismael Dunn [facility] PROTHROMBIN TIME / INR 2022-05-05 07:57:00 Ismael Dunn [facility] ACTIVATED PARTIAL THRMPLAS DAVID 2022-05-05 07:57:00 Ismael Dunn [facility] FIBRINOGEN 2022-05-05 07:57:00 Ismael Dunn [place] [facility] EMERGENCY SERVICES AGREEMENT S AND AUTHORIZATIONS 2022-05-04 05:01:00 Doctor Unassigned, [facility] VITAMIN D, 25-OH 2022-04-15 16:53:00 Sen Toledo [facility] MR THORACIC SPINE WO CONTRAST 2022-04-15 11:56:19 [facility] MR CERVICAL SPINE WO CONTRAST 2022-04-15 11:20:00 [facility] BASIC METABOLIC PANEL (NA, K , CL, CO2, GLUCOSE, BUN, CREATININE, CA) 2022-04-15 10:36:00 Charmaine Morataya [facility] TEST, URINE 2022-04-15 04:39:00 [facility] URINE DRUG (IMMUNOASSAY) - COMPREHENSIVE DRUG SCREEN 2022-04-15 04:39:00 [facility] URINALYSIS 2022-04-15 04:39:00 [facility] TRANSTHORACIC ECHO (TTE) COMPLETE W/ CONTRAST 2022-04-14 16:37:03 [facility] KEPPRA (LEVETIRACETAM) 2022-04-14 15:30:00 [facility] MAGNESIUM 2022-04-14 10:03:00 [facility] BASIC METABOLIC PANEL (NA, K , CL, CO2, GLUCOSE, BUN, CREATININE, CA) 2022-04-14 10:03:00 [facility] MR LUMBAR SPINE WO CONTRAST 2022-04-14 02:48:12 [facility] MR STROKE BRAIN WO CONTRAST 2022-04-14 02:29:[address] [facility] [address] STROKE ANGIOGRAM HEAD 2022-04-13 18:40:00 Sapna Vargas [facility] CT STROKE ANGIOGRAM NECK 2022-04-13 18:40:00 Sapna Vargas [facility] CT STROKE HEAD WO CONTRAST 2022-04-13 18:36:00 Sapna Vargas [facility] TROPONIN I 2022-04-13 18:17:00 Sapna Vargas [facility] THYROID STIMULATING HORMONE 2022-04-13 18:17:00 [facility] BASIC METABOLIC PANEL (NA, K , CL, CO2, GLUCOSE, BUN, CREATININE, CA) 2022-04-13 18:17:00 Sapna Vargas [facility] LIPID PANEL ([id number])(TOTAL CHOLESTEROL, TRIGLYCERIDES, HDL) 2022-04-13 18:17:00 [facility] CBC WITHOUT DIFF 2022-04-13 18:17:00 Sapna Vargas [facility] GLYCOSYLATED HEMOGLOBIN (A1C) 2022-04-13 18:17:00 [facility] PROTHROMBIN TIME / INR 2022-04-13 18:17:00 Sapna Vargas [facility] ACTIVATED PARTIAL THRMPLAS DAVID 2022-04-13 18:17:00 Sapna Vargas [facility] COVID-19 (ID NOW RAPID TESTING) 2022-04-13 18:17:00 Sapna Vargas [facility] LAB ONLY COVID INTERPRETATION 2022-04-13 18:17:00 Sapna Vargas [facility] HB ECG ROUTINE & RHYTHM STRIP 2022-04-13 18:15:49 Sapna Vargas [facility] CONSENT/REFUSAL FOR DIAGNOSI S AND TREATMENT 2022-04-13 18:05:14 Doctor Unassigned, [facility] HOSPITAL ADMISSION 2022-04-13 05:01:00 Doctor Unassigned, [facility] SARS-COV-2 COVID-19 VACCINE 12 YRS+,0.3ML,IM (PFIZER - [facility]) 2022-02-19 15:21:12 Doctor Unassigned, [facility] URINE DRUG (IMMUNOASSAY) - COMPREHENSIVE DRUG SCREEN W/O REFLEX 2021-11-23 21:21:00 Nichelle Virk [facility] CT HEAD WO CONTRAST 2021-11-23 20:58:00 Nichelle Virk [facility] POCT TEST 2021-11-23 20:46:00 Nichelle Virk [facility] URINALYSIS 2021-11-23 20:43:00 Nichelle Virk [facility] LIPASE 2021-11-23 20:27:00 Nichelle Virk [facility] TROPONIN I 2021-11-23 20:27:00 Nichelle Virk [facility] COMP. METABOLIC PANEL ([id number]) 2021-11-23 20:27:00 Nichelle Virk [facility] CBC WITH DIFF 2021-11-23 20:27:00 Nichelle Virk [facility] POCT GLUCOSE (AUTOMATED) 2021-11-23 20:15:00 Doctor Unassigned, [facility] SARS-COV-2 COVID-19 VACCINE,0.3ML,IM (PFIZER) 2021-05-24 14:23:12 Doctor Unassigned, [facility] SARS-COV-2 COVID-19 VACCINE,0.3ML,IM (PFIZER) 2021-05-03 14:59:29 Doctor Unassigned, [facility] EMERGENCY SERVICES AGREEMENT S AND AUTHORIZATIONS 2021-04-16 05:01:00 Doctor Unassigned, [facility] URINALYSIS 2021-03-17 03:09:00 Fabrice Chakraborty [facility] XR CHEST 1 VW 2021-03-17 01:45:[facility] 2021-03-17 01:35:00 Fabrice Chakraborty [facility] COMP. METABOLIC PANEL ([id number]) 2021-03-17 01:35:00 Fabrice Chakraborty [facility] CBC WITH DIFF 2021-03-17 01:35:00 Fabrice Chakraborty [facility] N-TERMINAL PRO-BNP 2021-03-17 01:35:00 Fabrice Chakraborty [facility] COVID-19 (ID NOW RAPID TESTING) 2021-03-17 00:58:00 Brian Ray [facility] CONSENT/REFUSAL FOR DIAGNOSI S AND TREATMENT 2021-03-17 00:32:59 Doctor Unassigned, [facility] COVID-19 (ID NOW RAPID TESTING) 2021-02-19 17:04:00 Anali Monroy [facility] CT ABDOMEN PELVIS W CONTRAST 2021-02-19 16:41:18 Anali Monroy [facility] LIPASE 2021-02-19 15:58:00 Anali Monroy [facility] COMP. METABOLIC PANEL ([id number]) 2021-02-19 15:58:00 Anali Monroy [facility] CBC WITH DIFF 2021-02-19 15:58:00 Anali Monroy [facility] URINALYSIS 2021-02-19 15:58:00 Anali Monroy [facility] NOTICE OF PRIVACY PRACTICES 2021-02-19 15:30:46 Doctor Unassigned, [facility] CONSENT/REFUSAL FOR DIAGNOSI S AND TREATMENT 2021-02-19 15:30:30 Doctor Unassigned, [facility] Plan of Care Planned Activity Planned Date Details Comments Source Future Scheduled Test 2025-08-02 00:00:00 Lipid panel (procedure) [code = 25588185] [facility] Future Scheduled Test 2025-08-02 00:00:00 Lipid panel (procedure) [code = 64632753] [facility] Future Scheduled Test 2025-08-02 00:00:00 Lipid panel (procedure) [code = 94905511] [facility] Future Scheduled Test 2025-08-02 00:00:00 Lipid panel (procedure) [code = 12725590] [facility] Future Scheduled Test 2025-08-02 00:00:00 Lipid panel (procedure) [code = 44370716] [facility] Future Scheduled Test 2025-08-02 00:00:00 Lipid panel (procedure) [code = 26427989] [facility] Future Scheduled Test 2025-08-02 00:00:00 Lipid panel (procedure) [code = 05422334] [facility] Future Scheduled Test 2025-08-02 00:00:00 Lipid panel (procedure) [code = 97053482] [facility] Future Scheduled Test 2025-08-02 00:00:00 Lipid panel (procedure) [code = 92086941] [facility] Future Scheduled Test 2025-08-02 00:00:00 Lipid panel (procedure) [code = 66584723] [facility] Future Scheduled Test 2025-08-02 00:00:00 Lipid panel (procedure) [code = 44771044] [facility] Future Scheduled Test 2025-08-02 00:00:00 Lipid panel (procedure) [code = 35163269] [facility] Future Scheduled Test 2025-08-02 00:00:00 Lipid panel (procedure) [code = 26207137] [facility] Future Scheduled Test 2025-08-02 00:00:00 Lipid panel (procedure) [code = 68162708] [facility] Future Scheduled Test 2025-08-02 00:00:00 Lipid panel (procedure) [code = 47487993] [facility] Future Scheduled Test 2025-08-02 00:00:00 Lipid panel (procedure) [code = 53873926] [facility] Future Scheduled Test 2025-08-02 00:00:00 Lipid panel (procedure) [code = 32194567] [facility] Future Scheduled Test 2025-08-02 00:00:00 Lipid panel (procedure) [code = 79259861] [facility] Future Scheduled Test 2025-08-02 00:00:00 Lipid panel (procedure) [code = 96702263] [facility] Future Scheduled Test 2025-08-02 00:00:00 Lipid panel (procedure) [code = 14190851] [facility] Future Scheduled Test 2025-08-02 00:00:00 Lipid panel (procedure) [code = 28847849] [facility] Future Scheduled Test 2025-08-02 00:00:00 Lipid panel (procedure) [code = 98211443] [facility] Future Scheduled Test 2025-08-02 00:00:00 Lipid panel (procedure) [code = 28967762] [facility] Future Scheduled Test 2025-08-02 00:00:00 Lipid panel (procedure) [code = 58754179] [facility] Future Scheduled Test 2025-08-02 00:00:00 Lipid panel (procedure) [code = 75233697] [facility] Future Scheduled Test 2025-08-02 00:00:00 Lipid panel (procedure) [code = 21900999] [facility] Future Scheduled Test 2025-08-02 00:00:00 Lipid panel (procedure) [code = 17311942] [facility] Future Scheduled Test 2025-08-02 00:00:00 Lipid panel (procedure) [code = 28980005] [facility] Future Scheduled Test 2025-08-02 00:00:00 Lipid panel (procedure) [code = 53094603] [facility] Future Scheduled Test 2025-08-02 00:00:00 Lipid panel (procedure) [code = 80356560] [facility] Future Scheduled Test 2025-08-02 00:00:00 Lipid panel (procedure) [code = 59996256] [facility] Future Scheduled Test 2025-08-02 00:00:00 Lipid panel (procedure) [code = 40650965] [facility] Future Scheduled Test 2025-08-02 00:00:00 Lipid panel (procedure) [code = 77027934] [facility] Future Scheduled Test 2025-08-02 00:00:00 Lipid panel (procedure) [code = 92323727] [facility] Future Scheduled Test 2025-08-02 00:00:00 Lipid panel (procedure) [code = 73783785] [facility] Future Scheduled Test 2025-08-02 00:00:00 Lipid panel (procedure) [code = 30802793] [facility] Future Scheduled Test 2025-08-02 00:00:00 Lipid panel (procedure) [code = 79742293] [facility] Future Scheduled Test 2024-05-28 00:00:00 Tobacco Cessation Counseling and Screening (12+) [code = Tobacco Cessation Counseling and Screening (12+)] [facility] Future Scheduled Test 2024-05-28 00:00:00 Tobacco Cessation Counseling and Screening (12+) [code = Tobacco Cessation Counseling and Screening (12+)] [facility] Scheduled Test 2024-05-28 00:00:00 Tobacco Cessation Counseling and Screening (12+) [code = Tobacco Cessation Counseling and Screening (12+)] [facility] Scheduled Test 2024-05-28 00:00:00 Tobacco Cessation Counseling and Screening (12+) [code = Tobacco Cessation Counseling and Screening (12+)] [facility] Scheduled Test 2024-05-28 00:00:00 Tobacco Cessation Counseling and Screening (12+) [code = Tobacco Cessation Counseling and Screening (12+)] [facility] Scheduled Test 2024-05-28 00:00:00 Tobacco Cessation Counseling and Screening (12+) [code = Tobacco Cessation Counseling and Screening (12+)] [facility] Scheduled Test 2024-05-28 00:00:00 Tobacco Cessation Counseling and Screening (12+) [code = Tobacco Cessation Counseling and Screening (12+)] [facility] Scheduled Test 2024-05-28 00:00:00 Tobacco Cessation Counseling and Screening (12+) [code = Tobacco Cessation Counseling and Screening (12+)] [facility] Scheduled Test 2024-05-28 00:00:00 Tobacco Cessation Counseling and Screening (12+) [code = Tobacco Cessation Counseling and Screening (12+)] [facility] Scheduled Test 2024-05-28 00:00:00 Tobacco Cessation Counseling and Screening (12+) [code = Tobacco Cessation Counseling and Screening (12+)] [facility] Scheduled Test 2024-05-28 00:00:00 Tobacco Cessation Counseling and Screening (12+) [code = Tobacco Cessation Counseling and Screening (12+)] [facility] Scheduled Test 2024-05-28 00:00:00 Tobacco Cessation Counseling and Screening (12+) [code = Tobacco Cessation Counseling and Screening (12+)] [facility] Scheduled Test 2024-05-26 00:00:00 Tobacco Cessation Counseling and Screening (12+) [code = Tobacco Cessation Counseling and Screening (12+)] [facility] Future Scheduled Test 2024-05-26 00:00:00 Tobacco Cessation Counseling and Screening (12+) [code = Tobacco Cessation Counseling and Screening (12+)] [facility] Future Scheduled Test 2023-07-20 00:00:00 DEPRESSION SCREENING (12+) [code = DEPRESSION SCREENING (12+)] [facility] Future Scheduled Test 2023-07-20 00:00:00 DEPRESSION SCREENING (12+) [code = DEPRESSION SCREENING (12+)] [facility] Future Scheduled Test 2023-07-20 00:00:00 DEPRESSION SCREENING (12+) [code = DEPRESSION SCREENING (12+)] [facility] Scheduled Test 2023-07-20 00:00:00 DEPRESSION SCREENING (12+) [code = DEPRESSION SCREENING (12+)] [facility] Future Scheduled Test 2023-03-20 00:00:00 INFLUENZA VACCINE (Season Ended) [code = INFLUENZA VACCINE (Season Ended)] [facility] Future Scheduled Test 2023-03-20 00:00:00 INFLUENZA VACCINE (Season Ended) [code = INFLUENZA VACCINE (Season Ended)] [facility] Future Scheduled Test 2023-03-20 00:00:00 INFLUENZA VACCINE (Season Ended) [code = INFLUENZA VACCINE (Season Ended)] [facility] Future Scheduled Test 2023-03-20 00:00:00 INFLUENZA VACCINE (Season Ended) [code = INFLUENZA VACCINE (Season Ended)] [facility] Future Scheduled Test 2023-03-20 00:00:00 INFLUENZA VACCINE (Season Ended) [code = INFLUENZA VACCINE (Season Ended)] [facility] Future Scheduled Test 2023-03-20 00:00:00 INFLUENZA VACCINE (Season Ended) [code = INFLUENZA VACCINE (Season Ended)] [facility] Future Scheduled Test 2023-03-20 00:00:00 Influenza Vaccine (Season Ended) [code = Influenza Vaccine (Season Ended)] [facility] Future Scheduled Test 2023-03-20 00:00:00 Influenza Vaccine (Season Ended) [code = Influenza Vaccine (Season Ended)] [facility] Future Scheduled Test 2023-03-20 00:00:00 Influenza Vaccine (#1) [code = Influenza Vaccine (#1)] [facility] Future Scheduled Test 2023-03-20 00:00:00 Influenza Vaccine (#1) [code = Influenza Vaccine (#1)] [facility] Future Scheduled Test 2023-03-20 00:00:00 Influenza Vaccine (#1) [code = Influenza Vaccine (#1)] [facility] Future Scheduled Test 2023-03-20 00:00:00 Influenza Vaccine (#1) [code = Influenza Vaccine (#1)] [facility] Future Scheduled Test 2023-03-20 00:00:00 COVID-19 VACCINE ( season) [code = COVID-19 VACCINE ()] [facility] Future Scheduled Test 2023-03-20 00:00:00 Influenza Vaccine (#1) [code = Influenza Vaccine (#1)] [facility] Future Scheduled Test 2023-03-20 00:00:00 COVID-19 VACCINE ( season) [code = COVID-19 VACCINE ()] [facility] Future Scheduled Test 2023-03-20 00:00:00 Influenza Vaccine (#1) [code = Influenza Vaccine (#1)] [facility] Future Scheduled Test 2023-03-20 00:00:00 COVID-19 VACCINE ( season) [code = COVID-19 VACCINE ()] [facility] Future Scheduled Test 2023-03-20 00:00:00 Influenza Vaccine (#1) [code = Influenza Vaccine (#1)] [facility] Future Scheduled Test 2023-03-20 00:00:00 COVID-19 VACCINE ( season) [code = COVID-19 VACCINE ( season)] [facility] Future Scheduled Test 2023-03-20 00:00:00 Influenza Vaccine (#1) [code = Influenza Vaccine (#1)] [facility] Future Scheduled Test 2023-03-20 00:00:00 Influenza Vaccine (#1) [code = Influenza Vaccine (#1)] [facility] Future Scheduled Test 2023-03-20 00:00:00 COVID-19 VACCINE ( season) [code = COVID-19 VACCINE ( season)] [facility] Future Scheduled Test 2023-03-20 00:00:00 Influenza Vaccine (#1) [code = Influenza Vaccine (#1)] [facility] Future Scheduled Test 2023-03-20 00:00:00 Influenza Vaccine (#1) [code = Influenza Vaccine (#1)] [facility] Future Scheduled Test 2023-03-20 00:00:00 Influenza Vaccine (#1) [code = Influenza Vaccine (#1)] [facility] Future Scheduled Test 2023-03-20 00:00:00 Influenza Vaccine (#1) [code = Influenza Vaccine (#1)] [facility] Future Scheduled Test 2023-03-20 00:00:00 Influenza Vaccine (#1) [code = Influenza Vaccine (#1)] [facility] Future Scheduled Test 2023-03-20 00:00:00 Influenza Vaccine (#1) [code = Influenza Vaccine (#1)] [facility] Future Scheduled Test 2023-03-20 00:00:00 Influenza Vaccine (#1) [code = Influenza Vaccine (#1)] [facility] Future Scheduled Test 2023-03-20 00:00:00 Influenza Vaccine (#1) [code = Influenza Vaccine (#1)] [facility] Future Scheduled Test 2023-03-20 00:00:00 Influenza Vaccine (#1) [code = Influenza Vaccine (#1)] [facility] Future Scheduled Test 2023-03-20 00:00:00 Influenza Vaccine (#1) [code = Influenza Vaccine (#1)] [facility] Future Scheduled Test 2023-03-20 00:00:00 Influenza Vaccine (#1) [code = Influenza Vaccine (#1)] [facility] Future Scheduled Test 2023-03-20 00:00:00 Influenza Vaccine (#1) [code = Influenza Vaccine (#1)] [facility] Future Scheduled Test 2023-03-20 00:00:00 Influenza Vaccine (#1) [code = Influenza Vaccine (#1)] [facility] Future Scheduled Test 2023-03-20 00:00:00 Influenza Vaccine (#1) [code = Influenza Vaccine (#1)] [facility] Future Scheduled Test 2023-03-20 00:00:00 Influenza Vaccine (#1) [code = Influenza Vaccine (#1)] [facility] Future Scheduled Test 2023-03-20 00:00:00 COVID-19 VACCINE ( season) [code = COVID-19 VACCINE ()] [facility] Future Scheduled Test 2023-03-20 00:00:00 COVID-19 VACCINE ( season) [code = COVID-19 VACCINE ()] [facility] Future Scheduled Test 2023-03-20 00:00:00 Influenza Vaccine (#1) [code = Influenza Vaccine (#1)] [facility] [facility] 00:00:00 DEPRESSION SCREENING (12+) [code = DEPRESSION SCREENING (12+)] [facility] Future Scheduled Test 2022-07-20 00:00:00 DEPRESSION SCREENING (12+) [code = DEPRESSION SCREENING (12+)] [facility] Future Scheduled Test 2022-07-20 00:00:00 DEPRESSION SCREENING (12+) [code = DEPRESSION SCREENING (12+)] [facility] Future Scheduled Test 2022-07-20 00:00:00 DEPRESSION SCREENING (12+) [code = DEPRESSION SCREENING (12+)] [facility] Future Scheduled Test 2022-07-20 00:00:00 DEPRESSION SCREENING (12+) [code = DEPRESSION SCREENING (12+)] [facility] Future Scheduled Test 2022-07-20 00:00:00 DEPRESSION SCREENING (12+) [code = DEPRESSION SCREENING (12+)] [facility] Future Scheduled Test 2022-07-20 00:00:00 DEPRESSION SCREENING (12+) [code = DEPRESSION SCREENING (12+)] [facility] Future Scheduled Test 2022-07-20 00:00:00 DEPRESSION SCREENING (12+) [code = DEPRESSION SCREENING (12+)] [facility] Future Scheduled Test 2022-07-20 00:00:00 DEPRESSION SCREENING (12+) [code = DEPRESSION SCREENING (12+)] [facility] Future Scheduled Test 2022-07-20 00:00:00 DEPRESSION SCREENING (12+) [code = DEPRESSION SCREENING (12+)] [facility] Future Scheduled Test 2022-07-20 00:00:00 DEPRESSION SCREENING (12+) [code = DEPRESSION SCREENING (12+)] [facility] Future Scheduled Test 2022-07-20 00:00:00 DEPRESSION SCREENING (12+) [code = DEPRESSION SCREENING (12+)] [facility] Future Scheduled Test 2022-07-20 00:00:00 DEPRESSION SCREENING (12+) [code = DEPRESSION SCREENING (12+)] [facility] Future Scheduled Test 2022-07-20 00:00:00 DEPRESSION SCREENING (12+) [code = DEPRESSION SCREENING (12+)] [facility] Future Scheduled Test 2022-07-20 00:00:00 DEPRESSION SCREENING (12+) [code = DEPRESSION SCREENING (12+)] [facility] Future Scheduled Test 2022-07-20 00:00:00 DEPRESSION SCREENING (12+) [code = DEPRESSION SCREENING (12+)] [facility] Future Scheduled Test 2022-07-20 00:00:00 DEPRESSION SCREENING (12+) [code = DEPRESSION SCREENING (12+)] [facility] Future Scheduled Test 2022-07-20 00:00:00 DEPRESSION SCREENING (12+) [code = DEPRESSION SCREENING (12+)] [facility] Future Scheduled Test 2022-07-20 00:00:00 DEPRESSION SCREENING (12+) [code = DEPRESSION SCREENING (12+)] [facility] Future Scheduled Test 2022-07-20 00:00:00 DEPRESSION SCREENING (12+) [code = DEPRESSION SCREENING (12+)] [facility] Future Scheduled Test 2022-07-20 00:00:00 DEPRESSION SCREENING (12+) [code = DEPRESSION SCREENING (12+)] [facility] Future Scheduled Test 2022-07-20 00:00:00 DEPRESSION SCREENING (12+) [code = DEPRESSION SCREENING (12+)] [facility] Future Scheduled Test 2022-07-20 00:00:00 DEPRESSION SCREENING (12+) [code = DEPRESSION SCREENING (12+)] [facility] Future Scheduled Test 2022-07-20 00:00:00 DEPRESSION SCREENING (12+) [code = DEPRESSION SCREENING (12+)] [facility] Future Scheduled Test 2022-07-20 00:00:00 DEPRESSION SCREENING (12+) [code = DEPRESSION SCREENING (12+)] [facility] Future Scheduled Test 2022-07-20 00:00:00 DEPRESSION SCREENING (12+) [code = DEPRESSION SCREENING (12+)] [facility] Future Scheduled Test 2022-07-20 00:00:00 DEPRESSION SCREENING (12+) [code = DEPRESSION SCREENING (12+)] [facility] Scheduled Test 2022-07-20 00:00:00 DEPRESSION SCREENING (12+) [code = DEPRESSION SCREENING (12+)] [facility] Scheduled Test 2022-07-20 00:00:00 DEPRESSION SCREENING (12+) [code = DEPRESSION SCREENING (12+)] [facility] Future Scheduled Test 2022-07-20 00:00:00 DEPRESSION SCREENING (12+) [code = DEPRESSION SCREENING (12+)] [facility] Future Scheduled Test 2022-07-20 00:00:00 DEPRESSION SCREENING (12+) [code = DEPRESSION SCREENING (12+)] [facility] Future Scheduled Test 2022-07-20 00:00:00 DEPRESSION SCREENING (12+) [code = DEPRESSION SCREENING (12+)] [facility] Future Scheduled Test 2022-07-20 00:00:00 DEPRESSION SCREENING (12+) [code = DEPRESSION SCREENING (12+)] [facility] Future Scheduled Test 2022-06-21 00:00:00 COVID-19 VACCINE (4 - Booster for Pfizer series) [code = COVID-19 VACCINE (4 - Booster for Pfizer series)] [facility] Future Scheduled Test 2022-06-21 00:00:00 COVID-19 VACCINE (4 - Booster for Pfizer series) [code = COVID-19 VACCINE (4 - Booster for Pfizer series)] [facility] Future Scheduled Test 2022-06-21 00:00:00 COVID-19 VACCINE (4 - Booster for Pfizer series) [code = COVID-19 VACCINE (4 - Booster for Pfizer series)] [facility] Future Scheduled Test 2022-06-21 00:00:00 COVID-19 VACCINE (4 - Booster for Pfizer series) [code = COVID-19 VACCINE (4 - Booster for Pfizer series)] [facility] Future Scheduled Test 2022-04-16 00:00:00 COVID-19 VACCINE (4 - Booster for Pfizer series) [code = COVID-19 VACCINE (4 - Booster for Pfizer series)] [facility] Scheduled Test 2022-04-16 00:00:00 COVID-19 VACCINE (4 - Booster for Pfizer series) [code = COVID-19 VACCINE (4 - Booster for Pfizer series)] [facility] Future Scheduled Test 2022-04-16 00:00:00 COVID-19 VACCINE (4 - Booster for Pfizer series) [code = COVID-19 VACCINE (4 - Booster for Pfizer series)] [facility] Scheduled Test 2022-04-16 00:00:00 COVID-19 VACCINE (4 - Booster for Pfizer series) [code = COVID-19 VACCINE (4 - Booster for Pfizer series)] [facility] Scheduled Test 2022-04-16 00:00:00 COVID-19 VACCINE (4 - Booster for Pfizer series) [code = COVID-19 VACCINE (4 - Booster for Pfizer series)] [facility] Future Scheduled Test 2022-04-16 00:00:00 COVID-19 VACCINE (4 - Booster for Pfizer series) [code = COVID-19 VACCINE (4 - Booster for Pfizer series)] [facility] Future Scheduled Test 2022-04-16 00:00:00 COVID-19 VACCINE (4 - Booster for Pfizer series) [code = COVID-19 VACCINE (4 - Booster for Pfizer series)] [facility] Future Scheduled Test 2022-04-16 00:00:00 COVID-19 VACCINE (4 - Booster for Pfizer series) [code = COVID-19 VACCINE (4 - Booster for Pfizer series)] [facility] Future Scheduled Test 2022-04-16 00:00:00 COVID-19 VACCINE (4 - Booster for Pfizer series) [code = COVID-19 VACCINE (4 - Booster for Pfizer series)] [facility] Future Scheduled Test 2022-04-16 00:00:00 COVID-19 VACCINE (4 - Booster for Pfizer series) [code = COVID-19 VACCINE (4 - Booster for Pfizer series)] [facility] Future Scheduled Test 2022-04-16 00:00:00 COVID-19 VACCINE (4 - Booster for Pfizer series) [code = COVID-19 VACCINE (4 - Booster for Pfizer series)] [facility] Scheduled Test 2022-04-16 00:00:00 COVID-19 VACCINE (4 - Booster for Pfizer series) [code = COVID-19 VACCINE (4 - Booster for Pfizer series)] [facility] Scheduled Test 2022-04-16 00:00:00 COVID-19 VACCINE (4 - Booster for Pfizer series) [code = COVID-19 VACCINE (4 - Booster for Pfizer series)] [facility] Scheduled Test 2022-04-16 00:00:00 COVID-19 VACCINE (4 - Booster for Pfizer series) [code = COVID-19 VACCINE (4 - Booster for Pfizer series)] [facility] Scheduled Test 2022-04-16 00:00:00 COVID-19 VACCINE (4 - Booster for Pfizer series) [code = COVID-19 VACCINE (4 - Booster for Pfizer series)] [facility] Scheduled Test 2022-04-16 00:00:00 COVID-19 VACCINE (4 - Booster for Pfizer series) [code = COVID-19 VACCINE (4 - Booster for Pfizer series)] [facility] Scheduled Test 2022-04-16 00:00:00 COVID-19 VACCINE (4 - Booster for Pfizer series) [code = COVID-19 VACCINE (4 - Booster for Pfizer series)] [facility] Scheduled Test 2022-04-16 00:00:00 COVID-19 VACCINE (4 - Booster for Pfizer series) [code = COVID-19 VACCINE (4 - Booster for Pfizer series)] [facility] Future Scheduled Test 2022-04-16 00:00:00 COVID-19 VACCINE (4 - Booster for Pfizer series) [code = COVID-19 VACCINE (4 - Booster for Pfizer series)] [facility] Scheduled Test 2022-04-16 00:00:00 COVID-19 VACCINE (4 - Booster for Pfizer series) [code = COVID-19 VACCINE (4 - Booster for Pfizer series)] [facility] Scheduled Test 2022-04-16 00:00:00 COVID-19 VACCINE (4 - Pfizer series) [code = COVID-19 VACCINE (4 - Pfizer series)] [facility] Scheduled Test 2022-04-16 00:00:00 COVID-19 VACCINE (4 - Pfizer series) [code = COVID-19 VACCINE (4 - Pfizer series)] [facility] Scheduled Test 2022-04-16 00:00:00 COVID-19 VACCINE (4 - Pfizer series) [code = COVID-19 VACCINE (4 - Pfizer series)] [facility] Scheduled Test 2022-04-16 00:00:00 COVID-19 VACCINE (4 - Pfizer series) [code = COVID-19 VACCINE (4 - Pfizer series)] [facility] Scheduled Test 2022-04-16 00:00:00 COVID-19 VACCINE (4 - Booster for Pfizer series) [code = COVID-19 VACCINE (4 - Booster for Pfizer series)] [facility] Future Scheduled Test 2022-04-16 00:00:00 COVID-19 VACCINE (4 - Pfizer series) [code = COVID-19 VACCINE (4 - Pfizer series)] [facility] Future Scheduled Test 2022-03-20 00:00:00 INFLUENZA VACCINE (#1) [code = INFLUENZA VACCINE (#1)] [facility] Future Scheduled Test 2022-03-20 00:00:00 INFLUENZA VACCINE (#1) [code = INFLUENZA VACCINE (#1)] [facility] Future Scheduled Test 2022-03-20 00:00:00 INFLUENZA VACCINE (#1) [code = INFLUENZA VACCINE (#1)] [facility] Future Scheduled Test 2022-03-20 00:00:00 INFLUENZA VACCINE (#1) [code = INFLUENZA VACCINE (#1)] [facility] Future Scheduled Test 2022-01-14 00:00:00 SHINGLES VACCINES (1 of 2) [code = SHINGLES VACCINES (1 of 2)] [facility] Scheduled Test 2022-01-14 00:00:00 SHINGLES VACCINES (1 of 2) [code = SHINGLES VACCINES (1 of 2)] [facility] Scheduled Test 2022-01-14 00:00:00 SHINGLES VACCINES (1 of 2) [code = SHINGLES VACCINES (1 of 2)] [facility] Scheduled Test 2022-01-14 00:00:00 SHINGLES VACCINES (1 of 2) [code = SHINGLES VACCINES (1 of 2)] [facility] Future Scheduled Test 2022-01-14 00:00:00 SHINGLES VACCINES (1 of 2) [code = SHINGLES VACCINES (1 of 2)] [facility] Scheduled Test 2022-01-14 00:00:00 SHINGLES VACCINES (1 of 2) [code = SHINGLES VACCINES (1 of 2)] [facility] Scheduled Test 2022-01-14 00:00:00 SHINGLES VACCINES (1 of 2) [code = SHINGLES VACCINES (1 of 2)] [facility] Scheduled Test 2022-01-14 00:00:00 SHINGLES VACCINES (1 of 2) [code = SHINGLES VACCINES (1 of 2)] [facility] Scheduled Test 2022-01-14 00:00:00 SHINGLES VACCINES (1 of 2) [code = SHINGLES VACCINES (1 of 2)] [facility] Scheduled Test 2022-01-14 00:00:00 SHINGLES VACCINES (1 of 2) [code = SHINGLES VACCINES (1 of 2)] [facility] Scheduled Test 2022-01-14 00:00:00 SHINGLES VACCINES (1 of 2) [code = SHINGLES VACCINES (1 of 2)] [facility] Scheduled Test 2022-01-14 00:00:00 SHINGLES VACCINES (1 of 2) [code = SHINGLES VACCINES (1 of 2)] [facility] Future Scheduled Test 2022-01-14 00:00:00 SHINGLES VACCINES (1 of 2) [code = SHINGLES VACCINES (1 of 2)] [facility] Future Scheduled Test 2022-01-14 00:00:00 SHINGLES VACCINES (1 of 2) [code = SHINGLES VACCINES (1 of 2)] [facility] Scheduled Test 2022-01-14 00:00:00 SHINGLES VACCINES (1 of 2) [code = SHINGLES VACCINES (1 of 2)] [facility] Future Scheduled Test 2022-01-14 00:00:00 Screening for malignant neoplasm of lung (procedure) [code = [id number]] [facility] Future Scheduled Test 2022-01-14 00:00:00 SHINGLES VACCINES (1 of 2) [code = SHINGLES VACCINES (1 of 2)] [facility] Future Scheduled Test 2022-01-14 00:00:00 Screening for malignant neoplasm of lung (procedure) [code = [id number]] [facility] Future Scheduled Test 2022-01-14 00:00:00 SHINGLES VACCINES (1 of 2) [code = SHINGLES VACCINES (1 of 2)] [facility] Scheduled Test 2022-01-14 00:00:00 Screening for malignant neoplasm of lung (procedure) [code = [id number]] [facility] Future Scheduled Test 2022-01-14 00:00:00 SHINGLES VACCINES (1 of 2) [code = SHINGLES VACCINES (1 of 2)] [facility] Future Scheduled Test 2022-01-14 00:00:00 Screening for malignant neoplasm of lung (procedure) [code = 416345087] [facility] Future Scheduled Test 2022-01-14 00:00:00 SHINGLES VACCINES (1 of 2) [code = SHINGLES VACCINES (1 of 2)] [facility] Future Scheduled Test 2022-01-14 00:00:00 Screening for malignant neoplasm of lung (procedure) [code = 809387694] [facility] Future Scheduled Test 2022-01-14 00:00:00 SHINGLES VACCINES (1 of 2) [code = SHINGLES VACCINES (1 of 2)] [facility] Future Scheduled Test 2022-01-14 00:00:00 Screening for malignant neoplasm of lung (procedure) [code = 063625001] [facility] Future Scheduled Test 2022-01-14 00:00:00 SHINGLES VACCINES (1 of 2) [code = SHINGLES VACCINES (1 of 2)] [facility] Future Scheduled Test 2022-01-14 00:00:00 Screening for malignant neoplasm of lung (procedure) [code = 255355770] [facility] Future Scheduled Test 2022-01-14 00:00:00 SHINGLES VACCINES (1 of 2) [code = SHINGLES VACCINES (1 of 2)] [facility] Future Scheduled Test 2022-01-14 00:00:00 Screening for malignant neoplasm of lung (procedure) [code = 115494533] [facility] Future Scheduled Test 2022-01-14 00:00:00 SHINGLES VACCINES (1 of 2) [code = SHINGLES VACCINES (1 of 2)] [facility] Scheduled Test 2022-01-14 00:00:00 Screening for malignant neoplasm of lung (procedure) [code = 656428260] [facility] Future Scheduled Test 2022-01-14 00:00:00 SHINGLES VACCINES (1 of 2) [code = SHINGLES VACCINES (1 of 2)] [facility] Future Scheduled Test 2022-01-14 00:00:00 Screening for malignant neoplasm of lung (procedure) [code = 376645257] [facility] Future Scheduled Test 2022-01-14 00:00:00 SHINGLES VACCINES (1 of 2) [code = SHINGLES VACCINES (1 of 2)] [facility] Scheduled Test 2022-01-14 00:00:00 Screening for malignant neoplasm of lung (procedure) [code = 018409696] [facility] Future Scheduled Test 2022-01-14 00:00:00 SHINGLES VACCINES (1 of 2) [code = SHINGLES VACCINES (1 of 2)] [facility] Future Scheduled Test 2022-01-14 00:00:00 Screening for malignant neoplasm of lung (procedure) [code = 069412149] [facility] Future Scheduled Test 2022-01-14 00:00:00 SHINGLES VACCINES (1 of 2) [code = SHINGLES VACCINES (1 of 2)] [facility] Future Scheduled Test 2022-01-14 00:00:00 SHINGLES VACCINES (1 of 2) [code = SHINGLES VACCINES (1 of 2)] [facility] Future Scheduled Test 2022-01-14 00:00:00 SHINGLES VACCINES (1 of 2) [code = SHINGLES VACCINES (1 of 2)] [facility] Future Scheduled Test 2022-01-14 00:00:00 Screening for malignant neoplasm of lung (procedure) [code = 312321868] [facility] Future Scheduled Test 2022-01-14 00:00:00 SHINGLES VACCINES (1 of 2) [code = SHINGLES VACCINES (1 of 2)] [facility] Scheduled Test 2022-01-14 00:00:00 Screening for malignant neoplasm of lung (procedure) [code = 075003476] [facility] Future Scheduled Test 2022-01-14 00:00:00 SHINGLES VACCINES (1 of 2) [code = SHINGLES VACCINES (1 of 2)] [facility] Future Scheduled Test 2022-01-14 00:00:00 Screening for malignant neoplasm of lung (procedure) [code = 328768206] [facility] Future Scheduled Test 2022-01-14 00:00:00 SHINGLES VACCINES (1 of 2) [code = SHINGLES VACCINES (1 of 2)] [facility] Future Scheduled Test 2022-01-14 00:00:00 Screening for malignant neoplasm of lung (procedure) [code = 399821888] [facility] Future Scheduled Test 2022-01-14 00:00:00 SHINGLES VACCINES (1 of 2) [code = SHINGLES VACCINES (1 of 2)] [facility] Future Scheduled Test 2022-01-14 00:00:00 Screening for malignant neoplasm of lung (procedure) [code = 023747970] [facility] Future Scheduled Test 2022-01-14 00:00:00 SHINGLES VACCINES (1 of 2) [code = SHINGLES VACCINES (1 of 2)] [facility] Future Scheduled Test 2022-01-14 00:00:00 Screening for malignant neoplasm of lung (procedure) [code = 453555783] [facility] Future Scheduled Test 2022-01-14 00:00:00 SHINGLES VACCINES (1 of 2) [code = SHINGLES VACCINES (1 of 2)] [facility] Scheduled Test 2022-01-14 00:00:00 Screening for malignant neoplasm of lung (procedure) [code = 826481245] [facility] Future Scheduled Test 2022-01-14 00:00:00 SHINGLES VACCINES (1 of 2) [code = SHINGLES VACCINES (1 of 2)] [facility] Future Scheduled Test 2022-01-14 00:00:00 Screening for malignant neoplasm of lung (procedure) [code = 799864289] [facility] Future Scheduled Test 2022-01-14 00:00:00 SHINGLES VACCINES (1 of 2) [code = SHINGLES VACCINES (1 of 2)] [facility] Future Scheduled Test 2013-12-15 00:00:00 PNEUMOCOCCAL VACCINE 0-64 YRS (2 - PCV) [code = PNEUMOCOCCAL VACCINE 0-64 YRS (2 - PCV)] [facility] Future Scheduled Test 2013-12-15 00:00:00 PNEUMOCOCCAL VACCINE 0-64 YRS (2 - PCV) [code = PNEUMOCOCCAL VACCINE 0-64 YRS (2 - PCV)] [facility] Future Scheduled Test 2013-12-15 00:00:00 PNEUMOCOCCAL VACCINE 0-64 YRS (2 - PCV) [code = PNEUMOCOCCAL VACCINE 0-64 YRS (2 - PCV)] [facility] Scheduled Test 2013-12-15 00:00:00 PNEUMOCOCCAL VACCINE 0-64 YRS (2 - PCV) [code = PNEUMOCOCCAL VACCINE 0-64 YRS (2 - PCV)] [facility] Scheduled Test 2013-12-15 00:00:00 Pneumococcal Vaccine: 0-64 Years (2 - PCV) [code = Pneumococcal Vaccine: 0-64 Years (2 - PCV)] [facility] Future Scheduled Test 2013-12-15 00:00:00 Pneumococcal Vaccine: 0-64 Years (2 - PCV) [code = Pneumococcal Vaccine: 0-64 Years (2 - PCV)] [facility] Future Scheduled Test 2013-12-15 00:00:00 Pneumococcal Vaccine: 0-64 Years (2 - PCV) [code = Pneumococcal Vaccine: 0-64 Years (2 - PCV)] [facility] Future Scheduled Test 2013-12-15 00:00:00 Pneumococcal Vaccine: 0-64 Years (2 - PCV) [code = Pneumococcal Vaccine: 0-64 Years (2 - PCV)] [facility] Future Scheduled Test 2013-12-15 00:00:00 Pneumococcal Vaccine: 0-64 Years (2 - PCV) [code = Pneumococcal Vaccine: 0-64 Years (2 - PCV)] [facility] Future Scheduled Test 2013-12-15 00:00:00 Pneumococcal Vaccine: 0-64 Years (2 - PCV) [code = Pneumococcal Vaccine: 0-64 Years (2 - PCV)] [facility] Future Scheduled Test 2013-12-15 00:00:00 Pneumococcal Vaccine: 0-64 Years (2 - PCV) [code = Pneumococcal Vaccine: 0-64 Years (2 - PCV)] [facility] Future Scheduled Test 2013-12-15 00:00:00 Pneumococcal Vaccine: 0-64 Years (2 - PCV) [code = Pneumococcal Vaccine: 0-64 Years (2 - PCV)] [facility] Future Scheduled Test 2013-12-15 00:00:00 Pneumococcal Vaccine: 0-64 Years (2 - PCV) [code = Pneumococcal Vaccine: 0-64 Years (2 - PCV)] [facility] Future Scheduled Test 1993-01-14 00:00:00 Screening for malignant neoplasm of cervix (procedure) [code = 638767907] [facility] Future Scheduled Test 1993-01-14 00:00:00 Screening for malignant neoplasm of cervix (procedure) [code = 033699640] [facility] Future Scheduled Test 1993-01-14 00:00:00 Screening for malignant neoplasm of cervix (procedure) [code = 194595521] [facility] Future Scheduled Test 1993-01-14 00:00:00 Screening for malignant neoplasm of cervix (procedure) [code = 106113638] [facility] Future Scheduled Test 1993-01-14 00:00:00 Screening for malignant neoplasm of cervix (procedure) [code = 334042144] [facility] Future Scheduled Test 1993-01-14 00:00:00 Screening for malignant neoplasm of cervix (procedure) [code = 658844631] [facility] Future Scheduled Test 1993-01-14 00:00:00 Screening for malignant neoplasm of cervix (procedure) [code = 717671288] [facility] Future Scheduled Test 1993-01-14 00:00:00 Screening for malignant neoplasm of cervix (procedure) [code = 994618217] [facility] Future Scheduled Test 1993-01-14 00:00:00 Screening for malignant neoplasm of cervix (procedure) [code = 066283115] [facility] Future Scheduled Test 1993-01-14 00:00:00 Screening for malignant neoplasm of cervix (procedure) [code = 598428847] [facility] Future Scheduled Test 1993-01-14 00:00:00 Screening for malignant neoplasm of cervix (procedure) [code = 828664791] [facility] Future Scheduled Test 1993-01-14 00:00:00 Screening for malignant neoplasm of cervix (procedure) [code = 266709673] [facility] Future Scheduled Test 1993-01-14 00:00:00 Screening for malignant neoplasm of cervix (procedure) [code = 026175431] [facility] Future Scheduled Test 1993-01-14 00:00:00 Screening for malignant neoplasm of cervix (procedure) [code = 248807556] [facility] Future Scheduled Test 1993-01-14 00:00:00 Screening for malignant neoplasm of cervix (procedure) [code = 416541901] [facility] Future Scheduled Test 1993-01-14 00:00:00 Screening for malignant neoplasm of cervix (procedure) [code = 205161151] [facility] Future Scheduled Test 1993-01-14 00:00:00 Screening for malignant neoplasm of cervix (procedure) [code = 501432421] [facility] Future Scheduled Test 1993-01-14 00:00:00 Screening for malignant neoplasm of cervix (procedure) [code = 840241308] [facility] Future Scheduled Test 1993-01-14 00:00:00 Screening for malignant neoplasm of cervix (procedure) [code = 171226564] [facility] Future Scheduled Test 1993-01-14 00:00:00 Screening for malignant neoplasm of cervix (procedure) [code = 546637963] [facility] Future Scheduled Test 1993-01-14 00:00:00 Screening for malignant neoplasm of cervix (procedure) [code = 530983300] [facility] Future Scheduled Test 1993-01-14 00:00:00 Screening for malignant neoplasm of cervix (procedure) [code = 507946538] [facility] Future Scheduled Test 1993-01-14 00:00:00 Screening for malignant neoplasm of cervix (procedure) [code = 415550237] [facility] Future Scheduled Test 1993-01-14 00:00:00 Screening for malignant neoplasm of cervix (procedure) [code = 463491547] [facility] Future Scheduled Test 1993-01-14 00:00:00 Screening for malignant neoplasm of cervix (procedure) [code = 008854554] [facility] Future Scheduled Test 1993-01-14 00:00:00 Screening for malignant neoplasm of cervix (procedure) [code = 493520214] [facility] Future Scheduled Test 1993-01-14 00:00:00 Screening for malignant neoplasm of cervix (procedure) [code = [id number]] [facility] Future Scheduled Test 1993-01-14 00:00:00 Screening for malignant neoplasm of cervix (procedure) [code = [id number]] [facility] Future Scheduled Test 1993-01-14 00:00:00 Screening for malignant neoplasm of cervix (procedure) [code = 559762571] [facility] Future Scheduled Test 1993-01-14 00:00:00 Screening for malignant neoplasm of cervix (procedure) [code = [id number]] [facility] Future Scheduled Test 1993-01-14 00:00:00 Screening for malignant neoplasm of cervix (procedure) [code = 725464756] [facility] Future Scheduled Test 1993-01-14 00:00:00 Screening for malignant neoplasm of cervix (procedure) [code = 863243672] [facility] Future Scheduled Test 1993-01-14 00:00:00 Screening for malignant neoplasm of cervix (procedure) [code = 156714349] [facility] Future Scheduled Test 1993-01-14 00:00:00 Screening for malignant neoplasm of cervix (procedure) [code = 443438661] [facility] Future Scheduled Test 1993-01-14 00:00:00 Screening for malignant neoplasm of cervix (procedure) [code = 588615081] [facility] Future Scheduled Test 1993-01-14 00:00:00 Screening for malignant neoplasm of cervix (procedure) [code = 585586219] [facility] Future Scheduled Test 1993-01-14 00:00:00 Screening for malignant neoplasm of cervix (procedure) [code = 150935312] [facility] Future Scheduled Test 1991-01-14 00:00:00 DTAP/TDAP/TD VACCINES (1 - Tdap) [code = DTAP/TDAP/TD VACCINES (1 - Tdap)] [facility] Future Scheduled Test 1991-01-14 00:00:00 DTAP/TDAP/TD VACCINES (1 - Tdap) [code = DTAP/TDAP/TD VACCINES (1 - Tdap)] [facility] Future Scheduled Test 1991-01-14 00:00:00 DTAP/TDAP/TD VACCINES (1 - Tdap) [code = DTAP/TDAP/TD VACCINES (1 - Tdap)] [facility] Future Scheduled Test 1991-01-14 00:00:00 DTAP/TDAP/TD VACCINES (1 - Tdap) [code = DTAP/TDAP/TD VACCINES (1 - Tdap)] [facility] Future Scheduled Test 1991-01-14 00:00:00 DTAP/TDAP/TD VACCINES (1 - Tdap) [code = DTAP/TDAP/TD VACCINES (1 - Tdap)] [facility] Future Scheduled Test 1991-01-14 00:00:00 DTAP/TDAP/TD VACCINES (1 - Tdap) [code = DTAP/TDAP/TD VACCINES (1 - Tdap)] [facility] Future Scheduled Test 1991-01-14 00:00:00 DTAP/TDAP/TD VACCINES (1 - Tdap) [code = DTAP/TDAP/TD VACCINES (1 - Tdap)] [facility] Future Scheduled Test 1991-01-14 00:00:00 DTAP/TDAP/TD VACCINES (1 - Tdap) [code = DTAP/TDAP/TD VACCINES (1 - Tdap)] [facility] Future Scheduled Test 1991-01-14 00:00:00 DTAP/TDAP/TD VACCINES (1 - Tdap) [code = DTAP/TDAP/TD VACCINES (1 - Tdap)] [facility] Future Scheduled Test 1991-01-14 00:00:00 DTAP/TDAP/TD VACCINES (1 - Tdap) [code = DTAP/TDAP/TD VACCINES (1 - Tdap)] [facility] Future Scheduled Test 1991-01-14 00:00:00 DTAP/TDAP/TD VACCINES (1 - Tdap) [code = DTAP/TDAP/TD VACCINES (1 - Tdap)] [facility] Future Scheduled Test 1991-01-14 00:00:00 DTAP/TDAP/TD VACCINES (1 - Tdap) [code = DTAP/TDAP/TD VACCINES (1 - Tdap)] [facility] Future Scheduled Test 1991-01-14 00:00:00 DTAP/TDAP/TD VACCINES (1 - Tdap) [code = DTAP/TDAP/TD VACCINES (1 - Tdap)] [facility] Future Scheduled Test 1991-01-14 00:00:00 DTAP/TDAP/TD VACCINES (1 - Tdap) [code = DTAP/TDAP/TD VACCINES (1 - Tdap)] [facility] Future Scheduled Test 1991-01-14 00:00:00 DTAP/TDAP/TD VACCINES (1 - Tdap) [code = DTAP/TDAP/TD VACCINES (1 - Tdap)] [facility] Future Scheduled Test 1991-01-14 00:00:00 DTAP/TDAP/TD VACCINES (1 - Tdap) [code = DTAP/TDAP/TD VACCINES (1 - Tdap)] [facility] Future Scheduled Test 1991-01-14 00:00:00 DTAP/TDAP/TD VACCINES (1 - Tdap) [code = DTAP/TDAP/TD VACCINES (1 - Tdap)] [facility] Future Scheduled Test 1991-01-14 00:00:00 DTAP/TDAP/TD VACCINES (1 - Tdap) [code = DTAP/TDAP/TD VACCINES (1 - Tdap)] [facility] Future Scheduled Test 1991-01-14 00:00:00 DTAP/TDAP/TD VACCINES (1 - Tdap) [code = DTAP/TDAP/TD VACCINES (1 - Tdap)] [facility] Future Scheduled Test 1991-01-14 00:00:00 DTAP/TDAP/TD VACCINES (1 - Tdap) [code = DTAP/TDAP/TD VACCINES (1 - Tdap)] [facility] Future Scheduled Test 1991-01-14 00:00:00 DTAP/TDAP/TD VACCINES (1 - Tdap) [code = DTAP/TDAP/TD VACCINES (1 - Tdap)] [facility] Future Scheduled Test 1991-01-14 00:00:00 DTAP/TDAP/TD VACCINES (1 - Tdap) [code = DTAP/TDAP/TD VACCINES (1 - Tdap)] [facility] Future Scheduled Test 1991-01-14 00:00:00 DTAP/TDAP/TD VACCINES (1 - Tdap) [code = DTAP/TDAP/TD VACCINES (1 - Tdap)] [facility] Future Scheduled Test 1991-01-14 00:00:00 DTAP/TDAP/TD VACCINES (1 - Tdap) [code = DTAP/TDAP/TD VACCINES (1 - Tdap)] [facility] Future Scheduled Test 1991-01-14 00:00:00 DTAP/TDAP/TD VACCINES (1 - Tdap) [code = DTAP/TDAP/TD VACCINES (1 - Tdap)] [facility] Future Scheduled Test 1991-01-14 00:00:00 DTAP/TDAP/TD VACCINES (1 - Tdap) [code = DTAP/TDAP/TD VACCINES (1 - Tdap)] [facility] Future Scheduled Test 1991-01-14 00:00:00 DTAP/TDAP/TD VACCINES (1 - Tdap) [code = DTAP/TDAP/TD VACCINES (1 - Tdap)] [facility] Future Scheduled Test 1991-01-14 00:00:00 DTAP/TDAP/TD VACCINES (1 - Tdap) [code = DTAP/TDAP/TD VACCINES (1 - Tdap)] [facility] Future Scheduled Test 1991-01-14 00:00:00 DTAP/TDAP/TD VACCINES (1 - Tdap) [code = DTAP/TDAP/TD VACCINES (1 - Tdap)] [facility] Future Scheduled Test 1991-01-14 00:00:00 DTAP/TDAP/TD VACCINES (1 - Tdap) [code = DTAP/TDAP/TD VACCINES (1 - Tdap)] [facility] Future Scheduled Test 1991-01-14 00:00:00 DTAP/TDAP/TD VACCINES (1 - Tdap) [code = DTAP/TDAP/TD VACCINES (1 - Tdap)] [facility] Future Scheduled Test 1991-01-14 00:00:00 DTAP/TDAP/TD VACCINES (1 - Tdap) [code = DTAP/TDAP/TD VACCINES (1 - Tdap)] [facility] Future Scheduled Test 1991-01-14 00:00:00 DTAP/TDAP/TD VACCINES (1 - Tdap) [code = DTAP/TDAP/TD VACCINES (1 - Tdap)] [facility] Future Scheduled Test 1991-01-14 00:00:00 DTAP/TDAP/TD VACCINES (1 - Tdap) [code = DTAP/TDAP/TD VACCINES (1 - Tdap)] [facility] Future Scheduled Test 1991-01-14 00:00:00 DTAP/TDAP/TD VACCINES (1 - Tdap) [code = DTAP/TDAP/TD VACCINES (1 - Tdap)] [facility] Future Scheduled Test 1991-01-14 00:00:00 DTAP/TDAP/TD VACCINES (1 - Tdap) [code = DTAP/TDAP/TD VACCINES (1 - Tdap)] [facility] Future Scheduled Test 1991-01-14 00:00:00 DTAP/TDAP/TD VACCINES (1 - Tdap) [code = DTAP/TDAP/TD VACCINES (1 - Tdap)] [facility] Future Scheduled Test 1990-01-14 00:00:00 HEPATITIS C SCREENING [code = HEPATITIS C SCREENING] [facility] Future Scheduled Test 1990-01-14 00:00:00 HEPATITIS C SCREENING [code = HEPATITIS C SCREENING] [facility] Future Scheduled Test 1990-01-14 00:00:00 HEPATITIS C SCREENING [code = HEPATITIS C SCREENING] [facility] Future Scheduled Test 1990-01-14 00:00:00 HEPATITIS C SCREENING [code = HEPATITIS C SCREENING] [facility] Future Scheduled Test 1990-01-14 00:00:00 HEPATITIS C SCREENING [code = HEPATITIS C SCREENING] [facility] Future Scheduled Test 1990-01-14 00:00:00 HEPATITIS C SCREENING [code = HEPATITIS C SCREENING] [facility] Future Scheduled Test 1990-01-14 00:00:00 HEPATITIS C SCREENING [code = HEPATITIS C SCREENING] [facility] Future Scheduled Test 1990-01-14 00:00:00 HEPATITIS C SCREENING [code = HEPATITIS C SCREENING] [facility] Future Scheduled Test 1990-01-14 00:00:00 HEPATITIS C SCREENING [code = HEPATITIS C SCREENING] [facility] Future Scheduled Test 1990-01-14 00:00:00 HEPATITIS C SCREENING [code = HEPATITIS C SCREENING] [facility] Future Scheduled Test 1990-01-14 00:00:00 HEPATITIS C SCREENING [code = HEPATITIS C SCREENING] [facility] Future Scheduled Test 1990-01-14 00:00:00 HEPATITIS C SCREENING [code = HEPATITIS C SCREENING] [facility] Future Scheduled Test 1990-01-14 00:00:00 HEPATITIS C SCREENING [code = HEPATITIS C SCREENING] [facility] Future Scheduled Test 1990-01-14 00:00:00 HEPATITIS C SCREENING [code = HEPATITIS C SCREENING] [facility] Future Scheduled Test 1990-01-14 00:00:00 HEPATITIS C SCREENING [code = HEPATITIS C SCREENING] [facility] Future Scheduled Test 1990-01-14 00:00:00 HEPATITIS C SCREENING [code = HEPATITIS C SCREENING] [facility] Future Scheduled Test 1990-01-14 00:00:00 HEPATITIS C SCREENING [code = HEPATITIS C SCREENING] [facility] Future Scheduled Test 1990-01-14 00:00:00 HEPATITIS C SCREENING [code = HEPATITIS C SCREENING] [facility] Future Scheduled Test 1990-01-14 00:00:00 HEPATITIS C SCREENING [code = HEPATITIS C SCREENING] [facility] Future Scheduled Test 1990-01-14 00:00:00 HEPATITIS C SCREENING [code = HEPATITIS C SCREENING] [facility] Future Scheduled Test 1990-01-14 00:00:00 HEPATITIS C SCREENING [code = HEPATITIS C SCREENING] [facility] Future Scheduled Test 1990-01-14 00:00:00 HEPATITIS C SCREENING [code = HEPATITIS C SCREENING] [facility] Future Scheduled Test 1990-01-14 00:00:00 HEPATITIS C SCREENING [code = HEPATITIS C SCREENING] [facility] Future Scheduled Test 1990-01-14 00:00:00 HEPATITIS C SCREENING [code = HEPATITIS C SCREENING] [facility] Future Scheduled Test 1990-01-14 00:00:00 HEPATITIS C SCREENING [code = HEPATITIS C SCREENING] [facility] Future Scheduled Test 1990-01-14 00:00:00 HEPATITIS C SCREENING [code = HEPATITIS C SCREENING] [facility] Future Scheduled Test 1990-01-14 00:00:00 HEPATITIS C SCREENING [code = HEPATITIS C SCREENING] [facility] Future Scheduled Test 1990-01-14 00:00:00 HEPATITIS C SCREENING [code = HEPATITIS C SCREENING] [facility] Future Scheduled Test 1990-01-14 00:00:00 HEPATITIS C SCREENING [code = HEPATITIS C SCREENING] [facility] Future Scheduled Test 1990-01-14 00:00:00 HEPATITIS C SCREENING [code = HEPATITIS C SCREENING] [facility] Future Scheduled Test 1990-01-14 00:00:00 HEPATITIS C SCREENING [code = HEPATITIS C SCREENING] [facility] Future Scheduled Test 1990-01-14 00:00:00 HEPATITIS C SCREENING [code = HEPATITIS C SCREENING] [facility] Future Scheduled Test 1990-01-14 00:00:00 HEPATITIS C SCREENING [code = HEPATITIS C SCREENING] [facility] Future Scheduled Test 1990-01-14 00:00:00 HEPATITIS C SCREENING [code = HEPATITIS C SCREENING] [facility] Future Scheduled Test 1990-01-14 00:00:00 HEPATITIS C SCREENING [code = HEPATITIS C SCREENING] [facility] Future Scheduled Test 1990-01-14 00:00:00 HEPATITIS C SCREENING [code = HEPATITIS C SCREENING] [facility] Future Scheduled Test 1990-01-14 00:00:00 HEPATITIS C SCREENING [code = HEPATITIS C SCREENING] [facility] Future Scheduled Test 1987-01-14 00:00:00 Human immunodeficiency virus screening (procedure) [code = [id number]] [facility] Future Scheduled Test 1987-01-14 00:00:00 Human immunodeficiency virus screening (procedure) [code = 775304317] [facility] Future Scheduled Test 1984 00:00:00 Tobacco Cessation Counseling and Screening (12+) [code = Tobacco Cessation Counseling and Screening (12+)] [facility] Future Scheduled Test 1984 00:00:00 Tobacco Cessation Counseling and Screening (12+) [code = Tobacco Cessation Counseling and Screening (12+)] [facility] Future Scheduled Test 1984 00:00:00 Tobacco Cessation Counseling and Screening (12+) [code = Tobacco Cessation Counseling and Screening (12+)] [facility] Future Scheduled Test 1984 00:00:00 Tobacco Cessation Counseling and Screening (12+) [code = Tobacco Cessation Counseling and Screening (12+)] [facility] Future Scheduled Test 1984 00:00:00 Tobacco Cessation Counseling and Screening (12+) [code = Tobacco Cessation Counseling and Screening (12+)] [facility] Future Scheduled Test 1984 00:00:00 Tobacco Cessation Counseling and Screening (12+) [code = Tobacco Cessation Counseling and Screening (12+)] [facility] Future Scheduled Test 1984 00:00:00 Tobacco Cessation Counseling and Screening (12+) [code = Tobacco Cessation Counseling and Screening (12+)] [facility] Future Scheduled Test 1984 00:00:00 Tobacco Cessation Counseling and Screening (12+) [code = Tobacco Cessation Counseling and Screening (12+)] [facility] Future Scheduled Test 1984 00:00:00 Tobacco Cessation Counseling and Screening (12+) [code = Tobacco Cessation Counseling and Screening (12+)] [facility] Future Scheduled Test 1984 00:00:00 Tobacco Cessation Counseling and Screening (12+) [code = Tobacco Cessation Counseling and Screening (12+)] [facility] Future Scheduled Test 1984 00:00:00 Tobacco Cessation Counseling and Screening (12+) [code = Tobacco Cessation Counseling and Screening (12+)] [facility] Future Scheduled Test 1984 00:00:00 Tobacco Cessation Counseling and Screening (12+) [code = Tobacco Cessation Counseling and Screening (12+)] [facility] Future Scheduled Test 1984 00:00:00 Tobacco Cessation Counseling and Screening (12+) [code = Tobacco Cessation Counseling and Screening (12+)] [facility] Future Scheduled Test 1984 00:00:00 Tobacco Cessation Counseling and Screening (12+) [code = Tobacco Cessation Counseling and Screening (12+)] [facility] Future Scheduled Test 1984 00:00:00 Tobacco Cessation Counseling and Screening (12+) [code = Tobacco Cessation Counseling and Screening (12+)] [facility] Future Scheduled Test 1984 00:00:00 Tobacco Cessation Counseling and Screening (12+) [code = Tobacco Cessation Counseling and Screening (12+)] [facility] Future Scheduled Test 1984 00:00:00 Tobacco Cessation Counseling and Screening (12+) [code = Tobacco Cessation Counseling and Screening (12+)] [facility] Future Scheduled Test 1984 00:00:00 Tobacco Cessation Counseling and Screening (12+) [code = Tobacco Cessation Counseling and Screening (12+)] [facility] Future Scheduled Test 1984 00:00:00 Tobacco Cessation Counseling and Screening (12+) [code = Tobacco Cessation Counseling and Screening (12+)] [facility] Future Scheduled Test 1984 00:00:00 Tobacco Cessation Counseling and Screening (12+) [code = Tobacco Cessation Counseling and Screening (12+)] [facility] Future Scheduled Test 1984 00:00:00 Tobacco Cessation Counseling and Screening (12+) [code = Tobacco Cessation Counseling and Screening (12+)] [facility] Future Scheduled Test 1984 00:00:00 Tobacco Cessation Counseling and Screening (12+) [code = Tobacco Cessation Counseling and Screening (12+)] [facility] Future Scheduled Test 1984 00:00:00 Tobacco Cessation Counseling and Screening (12+) [code = Tobacco Cessation Counseling and Screening (12+)] [facility] Future Scheduled Test 1972 00:00:00 Screening for malignant neoplasm of breast (procedure) [code = [id number]] [facility] Future Scheduled Test 1972 00:00:00 CT Colonography (combo) [code = CT Colonography (combo)] [facility] Future Scheduled Test 1972 00:00:00 Screening for malignant neoplasm of colon (procedure) [code = [id number]] [facility] Future Scheduled Test 1972 00:00:00 Screening for malignant neoplasm of colon (procedure) [code = 385872987] [facility] Future Scheduled Test 1972 00:00:00 Screening for malignant neoplasm of colon (procedure) [code = 084721451] [facility] Future Scheduled Test 1972 00:00:00 Screening for malignant neoplasm of colon (procedure) [code = 803320662] [facility] Future Scheduled Test 1972 00:00:00 Sigmoidoscopy [code = Sigmoidoscopy] [facility] Future Scheduled Test 1972 00:00:00 Screening for malignant neoplasm of breast (procedure) [code = 521928652] [facility] Future Scheduled Test 1972 00:00:00 CT Colonography (combo) [code = CT Colonography (combo)] [facility] Future Scheduled Test 1972 00:00:00 Screening for malignant neoplasm of colon (procedure) [code = 273600363] [facility] Future Scheduled Test 1972 00:00:00 Screening for malignant neoplasm of colon (procedure) [code = 240131535] [facility] Future Scheduled Test 1972 00:00:00 Screening for malignant neoplasm of colon (procedure) [code = 184231859] [facility] Future Scheduled Test 1972 00:00:00 Screening for malignant neoplasm of colon (procedure) [code = 314444354] [facility] Future Scheduled Test 1972 00:00:00 Sigmoidoscopy [code = Sigmoidoscopy] [facility] Future Scheduled Test 1972 00:00:00 Screening for malignant neoplasm of breast (procedure) [code = 460017168] [facility] Future Scheduled Test 1972 00:00:00 CT Colonography (combo) [code = CT Colonography (combo)] [facility] Future Scheduled Test 1972 00:00:00 Screening for malignant neoplasm of colon (procedure) [code = 697746346] [facility] Future Scheduled Test 1972 00:00:00 Screening for malignant neoplasm of colon (procedure) [code = 108402088] [facility] Future Scheduled Test 1972 00:00:00 Screening for malignant neoplasm of colon (procedure) [code = 044567418] [facility] Future Scheduled Test 1972 00:00:00 Screening for malignant neoplasm of colon (procedure) [code = 535676011] [facility] Future Scheduled Test 1972 00:00:00 Sigmoidoscopy [code = Sigmoidoscopy] [facility] Future Scheduled Test 1972 00:00:00 Screening for malignant neoplasm of breast (procedure) [code = 512087209] [facility] Future Scheduled Test 1972 00:00:00 CT Colonography (combo) [code = CT Colonography (combo)] [facility] Future Scheduled Test 1972 00:00:00 Screening for malignant neoplasm of colon (procedure) [code = 465173758] [facility] Future Scheduled Test 1972 00:00:00 Screening for malignant neoplasm of colon (procedure) [code = 708502354] [facility] Future Scheduled Test 1972 00:00:00 Screening for malignant neoplasm of colon (procedure) [code = 080270021] [facility] Future Scheduled Test 1972 00:00:00 Screening for malignant neoplasm of colon (procedure) [code = 909306947] [facility] Future Scheduled Test 1972 00:00:00 Sigmoidoscopy [code = Sigmoidoscopy] [facility] Future Scheduled Test 1972 00:00:00 Screening for malignant neoplasm of breast (procedure) [code = 664673715] [facility] Future Scheduled Test 1972 00:00:00 CT Colonography (combo) [code = CT Colonography (combo)] [facility] Future Scheduled Test 1972 00:00:00 Screening for malignant neoplasm of colon (procedure) [code = 655665100] [facility] Future Scheduled Test 1972 00:00:00 Screening for malignant neoplasm of colon (procedure) [code = 817637506] [facility] Future Scheduled Test 1972 00:00:00 Screening for malignant neoplasm of colon (procedure) [code = 860864326] [facility] Future Scheduled Test 1972 00:00:00 Screening for malignant neoplasm of colon (procedure) [code = 428032252] [facility] Future Scheduled Test 1972 00:00:00 Sigmoidoscopy [code = Sigmoidoscopy] [facility] Future Scheduled Test 1972 00:00:00 Screening for malignant neoplasm of breast (procedure) [code = 214630876] [facility] Future Scheduled Test 1972 00:00:00 CT Colonography (combo) [code = CT Colonography (combo)] [facility] Future Scheduled Test 1972 00:00:00 Screening for malignant neoplasm of colon (procedure) [code = 207572070] [facility] Future Scheduled Test 1972 00:00:00 Screening for malignant neoplasm of colon (procedure) [code = 813940131] [facility] Future Scheduled Test 1972 00:00:00 Screening for malignant neoplasm of colon (procedure) [code = 971515303] [facility] Future Scheduled Test 1972 00:00:00 Screening for malignant neoplasm of colon (procedure) [code = 557618252] [facility] Future Scheduled Test 1972 00:00:00 Sigmoidoscopy [code = Sigmoidoscopy] [facility] Future Scheduled Test 1972 00:00:00 Screening for malignant neoplasm of breast (procedure) [code = 425131025] [facility] Future Scheduled Test 1972 00:00:00 CT Colonography (combo) [code = CT Colonography (combo)] [facility] Future Scheduled Test 1972 00:00:00 Screening for malignant neoplasm of colon (procedure) [code = 804171921] [facility] Future Scheduled Test 1972 00:00:00 Screening for malignant neoplasm of colon (procedure) [code = 629339277] [facility] Future Scheduled Test 1972 00:00:00 Screening for malignant neoplasm of colon (procedure) [code = 069769643] [facility] Future Scheduled Test 1972 00:00:00 Screening for malignant neoplasm of colon (procedure) [code = 103398227] [facility] Future Scheduled Test 1972 00:00:00 Sigmoidoscopy [code = Sigmoidoscopy] [facility] Future Scheduled Test 1972 00:00:00 Screening for malignant neoplasm of breast (procedure) [code = 575929556] [facility] Future Scheduled Test 1972 00:00:00 CT Colonography (combo) [code = CT Colonography (combo)] [facility] Future Scheduled Test 1972 00:00:00 Screening for malignant neoplasm of colon (procedure) [code = 011694597] [facility] Future Scheduled Test 1972 00:00:00 Screening for malignant neoplasm of colon (procedure) [code = 543461974] [facility] Future Scheduled Test 1972 00:00:00 Screening for malignant neoplasm of colon (procedure) [code = 532661244] [facility] Future Scheduled Test 1972 00:00:00 Screening for malignant neoplasm of colon (procedure) [code = 707700763] [facility] Future Scheduled Test 1972 00:00:00 Sigmoidoscopy [code = Sigmoidoscopy] [facility] Future Scheduled Test 1972 00:00:00 Screening for malignant neoplasm of breast (procedure) [code = 688974866] [facility] Future Scheduled Test 1972 00:00:00 CT Colonography (combo) [code = CT Colonography (combo)] [facility] Future Scheduled Test 1972 00:00:00 Screening for malignant neoplasm of colon (procedure) [code = 864187835] [facility] Future Scheduled Test 1972 00:00:00 Screening for malignant neoplasm of colon (procedure) [code = 178664754] [facility] Future Scheduled Test 1972 00:00:00 Screening for malignant neoplasm of colon (procedure) [code = 529830581] [facility] Future Scheduled Test 1972 00:00:00 Screening for malignant neoplasm of colon (procedure) [code = 623184716] [facility] Future Scheduled Test 1972 00:00:00 Sigmoidoscopy [code = Sigmoidoscopy] [facility] Future Scheduled Test 1972 00:00:00 Screening for malignant neoplasm of breast (procedure) [code = [id number]] [facility] Future Scheduled Test 1972 00:00:00 CT Colonography (combo) [code = CT Colonography (combo)] [facility] Future Scheduled Test 1972 00:00:00 Screening for malignant neoplasm of colon (procedure) [code = 400065558] [facility] Future Scheduled Test 1972 00:00:00 Screening for malignant neoplasm of colon (procedure) [code = 523035917] [facility] Future Scheduled Test 1972 00:00:00 Screening for malignant neoplasm of colon (procedure) [code = 339202124] [facility] Future Scheduled Test 1972 00:00:00 Screening for malignant neoplasm of colon (procedure) [code = 756746608] [facility] Future Scheduled Test 1972 00:00:00 Sigmoidoscopy [code = Sigmoidoscopy] [facility] Future Scheduled Test 1972 00:00:00 Screening for malignant neoplasm of breast (procedure) [code = 278968501] [facility] Future Scheduled Test 1972 00:00:00 CT Colonography (combo) [code = CT Colonography (combo)] [facility] Future Scheduled Test 1972 00:00:00 Screening for malignant neoplasm of colon (procedure) [code = 496309304] [facility] Future Scheduled Test 1972 00:00:00 Screening for malignant neoplasm of colon (procedure) [code = 829596362] [facility] Future Scheduled Test 1972 00:00:00 Screening for malignant neoplasm of colon (procedure) [code = 292478403] [facility] Future Scheduled Test 1972 00:00:00 Screening for malignant neoplasm of colon (procedure) [code = 798727169] [facility] Future Scheduled Test 1972 00:00:00 Sigmoidoscopy [code = Sigmoidoscopy] [facility] Future Scheduled Test 1972 00:00:00 Screening for malignant neoplasm of breast (procedure) [code = 481975183] [facility] Future Scheduled Test 1972 00:00:00 CT Colonography (combo) [code = CT Colonography (combo)] [facility] Future Scheduled Test 1972 00:00:00 Screening for malignant neoplasm of colon (procedure) [code = 307733118] [facility] Future Scheduled Test 1972 00:00:00 Screening for malignant neoplasm of colon (procedure) [code = 092438007] [facility] Future Scheduled Test 1972 00:00:00 Screening for malignant neoplasm of colon (procedure) [code = 087840910] [facility] Future Scheduled Test 1972 00:00:00 Screening for malignant neoplasm of colon (procedure) [code = 211688549] [facility] Future Scheduled Test 1972 00:00:00 Sigmoidoscopy [code = Sigmoidoscopy] [facility] Future Scheduled Test 1972 00:00:00 Screening for malignant neoplasm of breast (procedure) [code = 908239707] [facility] Future Scheduled Test 1972 00:00:00 CT Colonography (combo) [code = CT Colonography (combo)] [facility] Future Scheduled Test 1972 00:00:00 Screening for malignant neoplasm of colon (procedure) [code = 616413789] [facility] Future Scheduled Test 1972 00:00:00 Screening for malignant neoplasm of colon (procedure) [code = 359191326] [facility] Future Scheduled Test 1972 00:00:00 Screening for malignant neoplasm of colon (procedure) [code = 794635469] [facility] Future Scheduled Test 1972 00:00:00 Screening for malignant neoplasm of colon (procedure) [code = 665782572] [facility] Future Scheduled Test 1972 00:00:00 Sigmoidoscopy [code = Sigmoidoscopy] [facility] Future Scheduled Test 1972 00:00:00 Screening for malignant neoplasm of breast (procedure) [code = 791063295] [facility] Future Scheduled Test 1972 00:00:00 CT Colonography (combo) [code = CT Colonography (combo)] [facility] Future Scheduled Test 1972 00:00:00 Screening for malignant neoplasm of colon (procedure) [code = 197174927] [facility] Future Scheduled Test 1972 00:00:00 Screening for malignant neoplasm of colon (procedure) [code = 494332717] [facility] Future Scheduled Test 1972 00:00:00 Screening for malignant neoplasm of colon (procedure) [code = 592639141] [facility] Future Scheduled Test 1972 00:00:00 Screening for malignant neoplasm of colon (procedure) [code = 882849641] [facility] Future Scheduled Test 1972 00:00:00 Sigmoidoscopy [code = Sigmoidoscopy] [facility] Future Scheduled Test 1972 00:00:00 Screening for malignant neoplasm of breast (procedure) [code = 177934310] [facility] Future Scheduled Test 1972 00:00:00 CT Colonography (combo) [code = CT Colonography (combo)] [facility] Future Scheduled Test 1972 00:00:00 Screening for malignant neoplasm of colon (procedure) [code = 417313561] [facility] Future Scheduled Test 1972 00:00:00 Screening for malignant neoplasm of colon (procedure) [code = 048004538] [facility] Future Scheduled Test 1972 00:00:00 Screening for malignant neoplasm of colon (procedure) [code = 715838392] [facility] Future Scheduled Test 1972 00:00:00 Screening for malignant neoplasm of colon (procedure) [code = 935264119] [facility] Future Scheduled Test 1972 00:00:00 Sigmoidoscopy [code = Sigmoidoscopy] [facility] Future Scheduled Test 1972 00:00:00 Screening for malignant neoplasm of breast (procedure) [code = 811569946] [facility] Future Scheduled Test 1972 00:00:00 CT Colonography (combo) [code = CT Colonography (combo)] [facility] Future Scheduled Test 1972 00:00:00 Screening for malignant neoplasm of colon (procedure) [code = 356960980] [facility] Future Scheduled Test 1972 00:00:00 Screening for malignant neoplasm of colon (procedure) [code = 125062983] [facility] Future Scheduled Test 1972 00:00:00 Screening for malignant neoplasm of colon (procedure) [code = 383958194] [facility] Future Scheduled Test 1972 00:00:00 Screening for malignant neoplasm of colon (procedure) [code = 050992115] [facility] Future Scheduled Test 1972 00:00:00 Sigmoidoscopy [code = Sigmoidoscopy] [facility] Future Scheduled Test 1972 00:00:00 Screening for malignant neoplasm of breast (procedure) [code = 389109283] [facility] Future Scheduled Test 1972 00:00:00 CT Colonography (combo) [code = CT Colonography (combo)] [facility] Future Scheduled Test 1972 00:00:00 Screening for malignant neoplasm of colon (procedure) [code = 878340495] [facility] Future Scheduled Test 1972 00:00:00 Screening for malignant neoplasm of colon (procedure) [code = 502947049] [facility] Future Scheduled Test 1972 00:00:00 Screening for malignant neoplasm of colon (procedure) [code = 760936282] [facility] Future Scheduled Test 1972 00:00:00 Screening for malignant neoplasm of colon (procedure) [code = 000049754] [facility] Future Scheduled Test 1972 00:00:00 Sigmoidoscopy [code = Sigmoidoscopy] [facility] Future Scheduled Test 1972 00:00:00 Screening for malignant neoplasm of breast (procedure) [code = 260664392] [facility] Future Scheduled Test 1972 00:00:00 CT Colonography (combo) [code = CT Colonography (combo)] [facility] Future Scheduled Test 1972 00:00:00 Screening for malignant neoplasm of breast (procedure) [code = 901750331] [facility] Future Scheduled Test 1972 00:00:00 CT Colonography (combo) [code = CT Colonography (combo)] [facility] Future Scheduled Test 1972 00:00:00 Screening for malignant neoplasm of colon (procedure) [code = 558319100] [facility] Future Scheduled Test 1972 00:00:00 Screening for malignant neoplasm of colon (procedure) [code = 611296855] [facility] Future Scheduled Test 1972 00:00:00 Screening for malignant neoplasm of colon (procedure) [code = 803806117] [facility] Future Scheduled Test 1972 00:00:00 Screening for malignant neoplasm of colon (procedure) [code = 986193459] [facility] Future Scheduled Test 1972 00:00:00 Sigmoidoscopy [code = Sigmoidoscopy] [facility] Future Scheduled Test 1972 00:00:00 Screening for malignant neoplasm of colon (procedure) [code = 710665311] [facility] Future Scheduled Test 1972 00:00:00 Screening for malignant neoplasm of colon (procedure) [code = 460818825] [facility] Future Scheduled Test 1972 00:00:00 Screening for malignant neoplasm of colon (procedure) [code = 126172571] [facility] Future Scheduled Test 1972 00:00:00 Screening for malignant neoplasm of colon (procedure) [code = 943618420] [facility] Future Scheduled Test 1972 00:00:00 Sigmoidoscopy [code = Sigmoidoscopy] [facility] Future Scheduled Test 1972 00:00:00 Screening for malignant neoplasm of breast (procedure) [code = 122541649] [facility] Future Scheduled Test 1972 00:00:00 CT Colonography (combo) [code = CT Colonography (combo)] [facility] Future Scheduled Test 1972 00:00:00 Screening for malignant neoplasm of colon (procedure) [code = 660533256] [facility] Future Scheduled Test 1972 00:00:00 Screening for malignant neoplasm of colon (procedure) [code = 364659933] [facility] Future Scheduled Test 1972 00:00:00 Screening for malignant neoplasm of colon (procedure) [code = 122507516] [facility] Future Scheduled Test 1972 00:00:00 Screening for malignant neoplasm of colon (procedure) [code = 025422612] [facility] Future Scheduled Test 1972 00:00:00 Sigmoidoscopy [code = Sigmoidoscopy] [facility] Future Scheduled Test 1972 00:00:00 Screening for malignant neoplasm of breast (procedure) [code = 781218880] [facility] Future Scheduled Test 1972 00:00:00 CT Colonography (combo) [code = CT Colonography (combo)] [facility] Future Scheduled Test 1972 00:00:00 Screening for malignant neoplasm of colon (procedure) [code = 688433030] [facility] Future Scheduled Test 1972 00:00:00 Screening for malignant neoplasm of colon (procedure) [code = 225351312] [facility] Future Scheduled Test 1972 00:00:00 Screening for malignant neoplasm of colon (procedure) [code = 842976930] [facility] Future Scheduled Test 1972 00:00:00 Screening for malignant neoplasm of colon (procedure) [code = 293691475] [facility] Future Scheduled Test 1972 00:00:00 Sigmoidoscopy [code = Sigmoidoscopy] [facility] Future Scheduled Test 1972 00:00:00 Screening for malignant neoplasm of breast (procedure) [code = 494462760] [facility] Future Scheduled Test 1972 00:00:00 CT Colonography (combo) [code = CT Colonography (combo)] [facility] Future Scheduled Test 1972 00:00:00 Screening for malignant neoplasm of colon (procedure) [code = 239710994] [facility] Future Scheduled Test 1972 00:00:00 Screening for malignant neoplasm of colon (procedure) [code = 552764573] [facility] Future Scheduled Test 1972 00:00:00 Screening for malignant neoplasm of colon (procedure) [code = 761385305] [facility] Future Scheduled Test 1972 00:00:00 Screening for malignant neoplasm of colon (procedure) [code = 184029211] [facility] Future Scheduled Test 1972 00:00:00 Sigmoidoscopy [code = Sigmoidoscopy] [facility] Future Scheduled Test 1972 00:00:00 Screening for malignant neoplasm of breast (procedure) [code = 944170064] [facility] Future Scheduled Test 1972 00:00:00 CT Colonography (combo) [code = CT Colonography (combo)] [facility] Future Scheduled Test 1972 00:00:00 Screening for malignant neoplasm of colon (procedure) [code = 406231233] [facility] Future Scheduled Test 1972 00:00:00 Screening for malignant neoplasm of colon (procedure) [code = 941813346] [facility] Future Scheduled Test 1972 00:00:00 Screening for malignant neoplasm of colon (procedure) [code = 229908893] [facility] Future Scheduled Test 1972 00:00:00 Screening for malignant neoplasm of colon (procedure) [code = 609375554] [facility] Future Scheduled Test 1972 00:00:00 Sigmoidoscopy [code = Sigmoidoscopy] [facility] Future Scheduled Test 1972 00:00:00 Screening for malignant neoplasm of breast (procedure) [code = 809517566] [facility] Future Scheduled Test 1972 00:00:00 CT Colonography (combo) [code = CT Colonography (combo)] [facility] Future Scheduled Test 1972 00:00:00 Screening for malignant neoplasm of colon (procedure) [code = 997463258] [facility] Future Scheduled Test 1972 00:00:00 Screening for malignant neoplasm of colon (procedure) [code = 786744699] [facility] Future Scheduled Test 1972 00:00:00 Screening for malignant neoplasm of colon (procedure) [code = 792731310] [facility] Future Scheduled Test 1972 00:00:00 Screening for malignant neoplasm of colon (procedure) [code = 020960464] [facility] Future Scheduled Test 1972 00:00:00 Sigmoidoscopy [code = Sigmoidoscopy] [facility] Future Scheduled Test 1972 00:00:00 Screening for malignant neoplasm of breast (procedure) [code = 775746155] [facility] Future Scheduled Test 1972 00:00:00 CT Colonography (combo) [code = CT Colonography (combo)] [facility] Future Scheduled Test 1972 00:00:00 Screening for malignant neoplasm of colon (procedure) [code = 320307872] [facility] Future Scheduled Test 1972 00:00:00 Screening for malignant neoplasm of colon (procedure) [code = 519916246] [facility] Future Scheduled Test 1972 00:00:00 Screening for malignant neoplasm of colon (procedure) [code = 589550648] [facility] Future Scheduled Test 1972 00:00:00 Screening for malignant neoplasm of colon (procedure) [code = 391621012] [facility] Future Scheduled Test 1972 00:00:00 Sigmoidoscopy [code = Sigmoidoscopy] [facility] Future Scheduled Test 1972 00:00:00 Screening for malignant neoplasm of breast (procedure) [code = 329367387] [facility] Future Scheduled Test 1972 00:00:00 CT Colonography (combo) [code = CT Colonography (combo)] [facility] Future Scheduled Test 1972 00:00:00 Screening for malignant neoplasm of colon (procedure) [code = 110057727] [facility] Future Scheduled Test 1972 00:00:00 Screening for malignant neoplasm of colon (procedure) [code = 510159555] [facility] Future Scheduled Test 1972 00:00:00 Screening for malignant neoplasm of colon (procedure) [code = 663245821] [facility] Future Scheduled Test 1972 00:00:00 Screening for malignant neoplasm of colon (procedure) [code = 294325420] [facility] Future Scheduled Test 1972 00:00:00 Sigmoidoscopy [code = Sigmoidoscopy] [facility] Future Scheduled Test 1972 00:00:00 Screening for malignant neoplasm of breast (procedure) [code = 705864438] [facility] Future Scheduled Test 1972 00:00:00 CT Colonography (combo) [code = CT Colonography (combo)] [facility] Future Scheduled Test 1972 00:00:00 Screening for malignant neoplasm of colon (procedure) [code = 446863213] [facility] Future Scheduled Test 1972 00:00:00 Screening for malignant neoplasm of colon (procedure) [code = 931726524] [facility] Future Scheduled Test 1972 00:00:00 Screening for malignant neoplasm of colon (procedure) [code = 879320829] [facility] Future Scheduled Test 1972 00:00:00 Screening for malignant neoplasm of colon (procedure) [code = 408010613] [facility] Future Scheduled Test 1972 00:00:00 Sigmoidoscopy [code = Sigmoidoscopy] [facility] Future Scheduled Test 1972 00:00:00 Screening for malignant neoplasm of breast (procedure) [code = 088464635] [facility] Future Scheduled Test 1972 00:00:00 CT Colonography (combo) [code = CT Colonography (combo)] [facility] Future Scheduled Test 1972 00:00:00 Screening for malignant neoplasm of colon (procedure) [code = 558229916] [facility] Future Scheduled Test 1972 00:00:00 Screening for malignant neoplasm of colon (procedure) [code = 448065167] [facility] Future Scheduled Test 1972 00:00:00 Screening for malignant neoplasm of colon (procedure) [code = 007500591] [facility] Future Scheduled Test 1972 00:00:00 Screening for malignant neoplasm of colon (procedure) [code = 963026838] [facility] Future Scheduled Test 1972 00:00:00 Sigmoidoscopy [code = Sigmoidoscopy] [facility] Future Scheduled Test 1972 00:00:00 Screening for malignant neoplasm of breast (procedure) [code = 736665183] [facility] Future Scheduled Test 1972 00:00:00 CT Colonography (combo) [code = CT Colonography (combo)] [facility] Future Scheduled Test 1972 00:00:00 Screening for malignant neoplasm of colon (procedure) [code = 627717745] [facility] Future Scheduled Test 1972 00:00:00 Screening for malignant neoplasm of colon (procedure) [code = 093069780] [facility] Future Scheduled Test 1972 00:00:00 Screening for malignant neoplasm of colon (procedure) [code = 112231599] [facility] Future Scheduled Test 1972 00:00:00 Screening for malignant neoplasm of colon (procedure) [code = 181678938] [facility] Future Scheduled Test 1972 00:00:00 Sigmoidoscopy [code = Sigmoidoscopy] [facility] Future Scheduled Test 1972 00:00:00 Screening for malignant neoplasm of breast (procedure) [code = 534446778] [facility] Future Scheduled Test 1972 00:00:00 CT Colonography (combo) [code = CT Colonography (combo)] [facility] Future Scheduled Test 1972 00:00:00 Screening for malignant neoplasm of colon (procedure) [code = 900307294] [facility] Future Scheduled Test 1972 00:00:00 Screening for malignant neoplasm of colon (procedure) [code = 932529682] [facility] Future Scheduled Test 1972 00:00:00 Screening for malignant neoplasm of colon (procedure) [code = 938075426] [facility] Future Scheduled Test 1972 00:00:00 Screening for malignant neoplasm of colon (procedure) [code = 498558139] [facility] Future Scheduled Test 1972 00:00:00 Sigmoidoscopy [code = Sigmoidoscopy] [facility] Future Scheduled Test 1972 00:00:00 Screening for malignant neoplasm of breast (procedure) [code = 766040048] [facility] Future Scheduled Test 1972 00:00:00 CT Colonography (combo) [code = CT Colonography (combo)] [facility] Future Scheduled Test 1972 00:00:00 Screening for malignant neoplasm of colon (procedure) [code = 269559882] [facility] Future Scheduled Test 1972 00:00:00 Screening for malignant neoplasm of colon (procedure) [code = 662118289] [facility] Future Scheduled Test 1972 00:00:00 Screening for malignant neoplasm of colon (procedure) [code = 179368041] [facility] Future Scheduled Test 1972 00:00:00 Screening for malignant neoplasm of colon (procedure) [code = 482005742] [facility] Future Scheduled Test 1972 00:00:00 Sigmoidoscopy [code = Sigmoidoscopy] [facility] Future Scheduled Test 1972 00:00:00 Screening for malignant neoplasm of breast (procedure) [code = 990972667] [facility] Future Scheduled Test 1972 00:00:00 CT Colonography (combo) [code = CT Colonography (combo)] [facility] Future Scheduled Test 1972 00:00:00 Screening for malignant neoplasm of colon (procedure) [code = 902095545] [facility] Future Scheduled Test 1972 00:00:00 Screening for malignant neoplasm of colon (procedure) [code = 860361369] [facility] Future Scheduled Test 1972 00:00:00 Screening for malignant neoplasm of colon (procedure) [code = 370951824] [facility] Future Scheduled Test 1972 00:00:00 Screening for malignant neoplasm of colon (procedure) [code = 227827175] [facility] Future Scheduled Test 1972 00:00:00 Sigmoidoscopy [code = Sigmoidoscopy] [facility] Future Scheduled Test 1972 00:00:00 Screening for malignant neoplasm of breast (procedure) [code = 406262399] [facility] Future Scheduled Test 1972 00:00:00 CT Colonography (combo) [code = CT Colonography (combo)] [facility] Future Scheduled Test 1972 00:00:00 Screening for malignant neoplasm of colon (procedure) [code = 413943204] [facility] Future Scheduled Test 1972 00:00:00 Screening for malignant neoplasm of colon (procedure) [code = 711235558] [facility] Future Scheduled Test 1972 00:00:00 Screening for malignant neoplasm of colon (procedure) [code = 665953038] [facility] Future Scheduled Test 1972 00:00:00 Screening for malignant neoplasm of colon (procedure) [code = 153599596] [facility] Future Scheduled Test 1972 00:00:00 Sigmoidoscopy [code = Sigmoidoscopy] [facility] Future Scheduled Test 1972 00:00:00 Screening for malignant neoplasm of breast (procedure) [code = 349920292] [facility] Future Scheduled Test 1972 00:00:00 CT Colonography (combo) [code = CT Colonography (combo)] [facility] Future Scheduled Test 1972 00:00:00 Screening for malignant neoplasm of colon (procedure) [code = 723323004] [facility] Future Scheduled Test 1972 00:00:00 Screening for malignant neoplasm of colon (procedure) [code = 222011328] [facility] Future Scheduled Test 1972 00:00:00 Screening for malignant neoplasm of colon (procedure) [code = 153649702] [facility] Future Scheduled Test 1972 00:00:00 Screening for malignant neoplasm of colon (procedure) [code = 619527454] [facility] Future Scheduled Test 1972 00:00:00 Sigmoidoscopy [code = Sigmoidoscopy] [facility] Future Scheduled Test 1972 00:00:00 Screening for malignant neoplasm of breast (procedure) [code = 810952046] [facility] Future Scheduled Test 1972 00:00:00 CT Colonography (combo) [code = CT Colonography (combo)] [facility] Future Scheduled Test 1972 00:00:00 Screening for malignant neoplasm of colon (procedure) [code = 411607321] [facility] Future Scheduled Test 1972 00:00:00 Screening for malignant neoplasm of colon (procedure) [code = 953261836] [facility] Future Scheduled Test 1972 00:00:00 Screening for malignant neoplasm of colon (procedure) [code = 677290883] [facility] Future Scheduled Test 1972 00:00:00 Screening for malignant neoplasm of colon (procedure) [code = 095522484] [facility] Future Scheduled Test 1972 00:00:00 Sigmoidoscopy [code = Sigmoidoscopy] [facility] Future Scheduled Test 1972 00:00:00 Screening for malignant neoplasm of breast (procedure) [code = 864499164] [facility] Future Scheduled Test 1972 00:00:00 CT Colonography (combo) [code = CT Colonography (combo)] [facility] [facility]uled Test 1972 00:00:00 Screening for malignant neoplasm of colon (procedure) [code = 993913283] [facility] Future Scheduled Test 1972 00:00:00 Screening for malignant neoplasm of colon (procedure) [code = 708185135] [facility] Future Scheduled Test 1972 00:00:00 Screening for malignant neoplasm of colon (procedure) [code = 778587100] [facility] Future Scheduled Test 1972 00:00:00 Screening for malignant neoplasm of colon (procedure) [code = 402853015] [facility] Future Scheduled Test 1972 00:00:00 Sigmoidoscopy [code = Sigmoidoscopy] [facility] Future Scheduled Test 1972 00:00:00 Screening for malignant neoplasm of breast (procedure) [code = 153282980] [facility] Future Scheduled Test 1972 00:00:00 CT Colonography (combo) [code = CT Colonography (combo)] [facility] Future Scheduled Test 1972 00:00:00 Screening for malignant neoplasm of colon (procedure) [code = 662664935] [facility] Future Scheduled Test 1972 00:00:00 Screening for malignant neoplasm of colon (procedure) [code = 467482834] [facility] Future Scheduled Test 1972 00:00:00 Screening for malignant neoplasm of colon (procedure) [code = 300258917] [facility] Future Scheduled Test 1972 00:00:00 Screening for malignant neoplasm of colon (procedure) [code = 797428954] [facility] Future Scheduled Test 1972 00:00:00 Sigmoidoscopy [code = Sigmoidoscopy] [facility] Goal Plan of Care Not e [code = 92209-6] Goal Plan of Care Not e [code = 17122-9] Goal Plan of Care Not e [code = 87565-3] Goal Plan of Care Not e [code = 35919-2] Goal Plan of Care Not e [code = 95941-9] Goal Plan of Care Not e [code = 16693-5] Goal Plan of Care Not e [code = 06249-2] Goal Plan of Care Not e [code = 83424-6] Goal Plan of Care Not e [code = 76069-4] Goal Plan of Care Not e [code = 94049-0] Goal Plan of Care Not e [code = 98084-3] Goal Plan of Care Not e [code = 53251-0] Goal Plan of Care Not e [code = 70566-4] Goal Plan of Care Not e [code = 01766-9] Goal Plan of Care Not e [code = 30498-2] Goal Plan of Care Not e [code = 07249-6] Goal Plan of Care Not e [code = 27909-5] Goal Plan of Care Not e [code = 74868-5] Goal Plan of Care Not e [code = 58058-2] Goal Plan of Care Not e [code = 53350-9] Goal Plan of Care Not e [code = 57733-0] Goal Plan of Care Not e [code = 52522-2] Goal Plan of Care Not e [code = 60179-9] Goal Plan of Care Not e [code = 93298-9] Goal Plan of Care Not e [code = 91180-8] Goal Plan of Care Not e [code = 05629-7] Goal Plan of Care Not e [code = 79035-0] Goal Plan of Care Not e [code = 82538-2] Goal Plan of Care Not e [code = 90262-8] Goal Plan of Care Not e [code = 87511-1] Goal Plan of Care Not e [code = 11085-3] Goal Plan of Care Not e [code = 22402-7] Goal Plan of Care Not e [code = 66075-7] Goal Plan of Care Not e [code = 07673-3] Goal Plan of Care Not e [code = 45002-5] Encounters Start Date/Time End Date/Time Encounter Type Admission Type Attending [facility] Facility Care Department Encounter ID Source 2023-06-16 09:32:[address] [facility] [id number] [facility] 2023-06-16 09:32:[address] [facility] [id number] [facility] 2023-06-16 09:31:[address] [facility] [id number] [facility] 2023-06-14 07:46:[address] [facility] [id number] [facility] 2023-06-14 07:39:[address] [facility] [id number] [facility] 2023-06-14 06:38:[address] [facility] [id number] [facility] 2023-06-13 13:44:[address] [facility] [id number] [facility] 2023-06-13 11:45:[address] [facility] [id number] [facility] 2023-05-08 11:21:00 Outpatient EL ADAM GARCIA [facility] Surgery [id number] [facility] 2023-04-01 14:26:29 Inpatient ER THOMAS LOZOYA [facility] [id number] [facility] 2023-03-31 09:24:52 Inpatient ER MARIAH ALDRIDGE [facility] [id number] [facility] 2021-05-20 18:48:04 Emergency [facility] [id number] [facility] 2021-05-20 12:43:40 Emergency [facility] [id number] [facility] 2023-06-13 03:43:00 2023-06-16 19:45:00 Inpatient ER AYDEE GO [facility] Internal Med [id number] [facility] 2023-06-13 03:43:00 2023-06-16 19:45:00 Hospital Encounter Cara Burgess Sahar [facility] [id number] [facility] 2023-06-13 03:43:00 2023-06-16 19:45:00 Hospital Encounter ER Cara Burgess Sahar [facility] [id number] [facility] 2023-06-15 00:00:00 2023-06-15 00:00:00 Orders Only System, Provider Not In [facility] [id number] [facility] 2023-06-15 00:00:00 2023-06-15 00:00:00 Orders Only System, Provider Not In [facility] [id number] [facility] 2023-06-13 16:30:06 2023-06-13 16:30:06 Outpatient AYDEE DICKENS [facility] [id number] [facility] 2023-06-13 00:00:00 2023-06-13 00:00:[address] [facility] [id number] [facility] 2023-06-13 00:00:00 2023-06-13 00:00:00 Travel [facility] [id number] [facility] 2023-06-13 00:00:00 2023-06-13 00:00:[address] [facility] [id number] [facility] 2023-06-13 00:00:00 2023-06-13 00:00:00 Travel [facility] [id number] [facility] 2023-06-12 00:00:00 2023-06-12 00:00:[address] [facility] [id number] [facility] 2023-06-12 00:00:00 2023-06-12 00:00:[address] [facility] [id number] [facility] 2023-05-28 06:45:00 2023-06-04 17:36:00 Inpatient ADAM BRANTLEY [facility] Surgery [id number] [facility] 2023-05-28 06:45:00 2023-06-04 17:36:00 Hospital Encounter Adam Garcia Adi [facility] [id number] [facility] 2023-05-28 06:45:00 2023-06-04 17:36:00 Hospital Encounter Adam Brantley Adi [facility] [id number] [facility] 2023-06-01 09:10:00 2023-06-01 13:00:00 Anesthesia Event Harry Newsome Mujtaba Ahmad [facility] [id number] [facility] 2023-06-01 09:10:00 2023-06-01 13:00:00 Anesthesia Event Harry Newsome Mujtaba Ahmad [facility] [id number] [facility] 2023-06-01 09:00:00 2023-06-01 11:30:[address] [facility] [id number] [facility] 2023-06-01 09:00:00 2023-06-01 11:30:[address] [facility] [id number] [facility] 2023-06-01 09:47:57 2023-06-01 09:47:57 Outpatient ADAM BRANTLEY [facility] [id number] [facility] 2023-06-01 09:40:34 2023-06-01 09:40:34 Outpatient ADAM BRANTLEY [facility] [id number] [facility] 2023-05-31 09:25:55 2023-05-31 23:59:00 Inpatient ADAM BRANTLEY [facility] [id number] [facility] 2023-05-31 09:00:00 2023-05-31 23:59:00 Hospital Encounter Adam Garcia Adi [facility] [id number] [facility] 2023-05-31 09:00:00 2023-05-31 23:59:00 Hospital Encounter Adam Garcia Adi [facility] [id number] [facility] 2023-05-28 18:15:29 2023-05-28 18:15:[address] [facility] [id number] [facility] 2023-05-28 08:30:00 2023-05-28 11:54:00 Anesthesia Event Yue Bui [facility] [id number] [facility] 2023-05-28 08:30:00 2023-05-28 11:54:00 Anesthesia Event Yue Bui [facility] [id number] [facility] 2023-05-28 11:41:14 2023-05-28 11:41:14 [id number] 2023-05-28 08:30:00 2023-05-28 11:00:00 Surgery Adam Garcia Adi [facility] [id number] [facility] 2023-05-28 08:30:00 2023-05-28 11:00:00 Surgery Adam Garcia Ad[facility] [id number] [facility] 2023-05-28 10:00:47 2023-05-28 10:00:47 Outpatient ADAM [facility]ANTLEY [facility] [id number] [facility] 2023-05-28 00:00:00 2023-05-28 00:00:00 Travel [facility] [id number] [facility] 2023-05-28 00:00:00 2023-05-28 00:00:00 Travel [facility] [id number] [facility] 2023-05-26 09:00:00 2023-05-26 09:00:00 Hospital Encounter Adam Garcia [facility] [id number] [facility] 2023-05-26 09:00:00 2023-05-26 09:00:00 Hospital Encounter Adam Garcia [facility] [id number] [facility] 2023-05-26 00:00:00 2023-05-26 00:00:00 Outpatient ADAM BRANTLEY [facility] [id number] [facility] 2023-05-26 00:00:00 2023-05-26 00:00:00 Outpatient NICOLETTE [facility] [id number] [facility] 2023-05-26 00:00:00 2023-05-26 00:00:00 Travel [facility] [id number] [facility] 2023-05-26 00:00:00 2023-05-26 00:00:00 Travel [facility] [id number] [facility] 2023-05-13 11:43:03 2023-05-13 11:43:03 Outpatient [facility] [id number] Adria Martínez 2023-05-12 00:00:00 2023-05-12 00:00:00 Orders Only Adam Gacria [facility] [id number] [facility] 2023-05-12 00:00:00 2023-05-12 00:00:00 Orders Only Adam Garcia [facility] [id number] [facility] 2023-05-08 14:11:21 2023-05-08 14:11:21 Outpatient [facility] [id number] Adria Martínez 2023-03-29 19:25:00 2023-04-02 20:48:00 Inpatient ER THOMAS LOZOYA [facility] [id number] [facility] 2023-03-29 19:25:00 2023-04-02 20:48:00 Hospital Encounter Connie Davey, Mariah Lozoya, Thomas Hopkins [facility] [id number] [facility] 2023-03-29 19:25:00 2023-04-02 20:48:00 Hospital Encounter ER Connie Davey, Mariah Lozoya, [facility] Hopkins [facility] [id number] [facility] 2023-03-31 08:32:56 2023-03-31 00:00:00 Inpatient ER MARIAH ALDRIDGE [facility] [id number] [facility] 2023-03-30 10:24:12 2023-03-30 23:59:00 Outpatient ER CONNIE DAVEY [facility] [id number] [facility] 2023-03-30 09:40:00 2023-03-30 23:59:00 Hospital Encounter Connie Davey [facility] [id number] [facility] 2023-03-30 09:40:00 2023-03-30 23:59:00 Hospital Encounter Connie Davey [facility] [id number] [facility] 2023-03-30 13:46:20 2023-03-30 13:46:20 Outpatient ER MARIAH ALDRIDGE SLERigoberto [facility] [id number] [facility] 2023-03-30 13:46:14 2023-03-30 13:46:14 Outpatient ER MARIAH ALDRIDGE [facility] [id number] [facility] 2023-03-30 10:24:04 2023-03-30 10:24:04 Outpatient ER CONNIE DAVEY SLERigoberto [facility] [id number] [facility] 2023-03-30 00:00:00 2023-03-30 00:00:[address] [facility] [id number] [facility] 2023-03-30 00:00:00 2023-03-30 00:00:00 Travel [facility] [id number] [facility] 2023-03-30 00:00:00 2023-03-30 00:00:[address] [facility] [id number] [facility] 2023-03-30 00:00:00 2023-03-30 00:00:00 Travel [facility] [id number] [facility] 2022-12-11 08:56:00 2022-12-11 15:29:00 Emergency X Alfonso ALVARADO [facility] E[facility] [id number] [facility] 2022-12-11 08:56:00 2022-12-11 15:29:00 Emergency Alfonso Alvarado [facility] 1.2.840.114 350.1.13.10 4.2.7.2.686 [id number] [facility] 2022-11-17 17:25:00 2022-11-18 01:19:00 Emergency X RITCHIE WARREN [facility] ERT [id number] [facility] 2022-11-17 17:25:00 2022-11-18 01:19:00 Emergency Ritchie Warren [facility] 1.2.840.114 350.1.13.10 4.2.7.2.686 [id number] [facility] 2022-08-28 00:00:00 2022-08-28 00:00:00 Patient Outreach Shy Beckman 1.2.840.114 350.1.13.10 4.2.7.2.686 [id number] [facility] 2022-08-20 00:00:00 2022-08-20 00:00:00 Patient Outreach Shy Beckman 1.2.840.114 350.1.13.10 4.2.7.2.686 [id number] [facility] 2022-08-02 17:30:00 2022-08-03 14:29:00 Hospital Encounter Halima Mendoza Kinjal M Ibe, Chimkama Ngozi Cynthia [facility] [id number] [facility] 2022-08-02 17:30:00 2022-08-03 14:29:00 Outpatient ER CAMDEN WHEATLEYZAINABEDIN [facility] Neurology [id number] [facility] 2022-08-02 17:30:00 2022-08-03 14:29:00 Hospital Encounter ER Halima Mendoza Kinjal M Ibe, Vannaedin Araceli Aissatou [facility] [id number] [facility] 2022-08-03 00:00:00 2022-08-03 00:00:00 Orders [facility] [id number] [facility] 2022-08-03 00:00:00 2022-08-03 00:00:00 Orders [facility] [id number] [facility] 2022-08-02 00:00:00 2022-08-02 00:00:00 Travel [facility] [id number] [facility] 2022-08-02 00:00:00 2022-08-02 00:00:00 Travel [facility] [id number] [facility] 2022-07-31 11:42:00 2022-08-01 21:48:00 Inpatient LORENZA MELGAR [facility] [id number] [facility] 2022-07-31 11:42:00 2022-08-01 21:48:00 Hospital Encounter Sav Rondon Yaman [facility] 1..840.114 350.1.13.10 4.2.7.2.686 [id number] [facility] 2022-08-01 00:00:00 2022-08-01 00:00:00 Transition of Care Maria Tersea Nicole 1.2.840.114 350.1.13.10 4.2.7.2.686 [id number] [facility] 2022-07-28 14:41:38 2022-07-28 14:41:38 Outpatient [facility] [id number] Adria Martínez 2022-07-28 00:00:00 2022-07-28 00:00:00 Outpatient Visit [id number] 2022-07-24 13:24:40 2022-07-24 13:24:40 Outpatient S[facility] 5 Adria Martínez 2022-05-23 14:51:01 2022-05-23 14:51:01 Outpatient [facility] [id number] Adria Martínez 2022-05-23 00:00:00 2022-05-23 00:00:00 Outpatient Visit [id number] 2022-05-04 20:22:00 2022-05-08 14:44:00 Outpatient X CHANTEL BOJORQUEZ PABLO [facility] [id number] [facility] 2022-05-04 20:22:00 2022-05-08 14:44:00 Emergency Brandyn Ibrahim Pablo [facility] 1.2.840.114 350.1.13.10 4.2.7.2.686 [id number] [facility] 2022-04-13 13:06:00 2022-04-15 15:00:00 Inpatient X SELINA MARTINES [facility] [id number] [facility] 2022-04-13 13:06:00 2022-04-15 15:00:00 Hospital Encounter Sapna Vargas Muhammad Zeeshan Chhabra, Selina [facility] 1.840.114 350.1.13.10 4.2.7.2.686 [id number] [facility] 2022-02-19 10:20:00 2022-02-19 10:30:00 Imm/Inj Visit Vaccine, [place] Jose Santiago [facility] 1..840.114 350.1.13.10 4.2.7.2.686 [id number] [facility] 2022-02-19 10:20:00 2022-02-19 10:20:00 Outpatient JOSE MENDOZA [facility] [id number] [facility] 2021-11-23 15:07:00 2021-11-23 17:03:00 Emergency X NICHELLE VIRK [facility] ERT [id number] [facility] 2021-11-23 15:07:00 2021-11-23 17:03:00 Emergency Sav Rondon Folusho F [facility] 1..840.114 350.1.13.10 4.2.7.2.686 [id number] [facility] 2021-11-21 09:40:00 2021-11-21 09:40:00 Outpatient Terry [facility] [id number] [facility] 2021-05-24 09:30:00 2021-05-24 09:30:00 Outpatient JOSE MENDOZA [facility] [id number] [facility] 2021-05-24 08:47:51 2021-05-24 08:57:51 Imm/Inj Visit Vaccine, [place] Jose Santiago [facility] 1.2840.114 350.1.13.10 4.2.7.2.686 [id number] [facility] 2021-05-03 09:40:00 2021-05-03 09:59:35 Outpatient R JOSE PAK [facility] [id number] [facility] 2021-05-03 09:17:43 2021-05-03 09:59:35 Imm/Inj Visit Vaccine, [place] Jose Santiago [facility] 1.840.114 350.1.13.10 4.2.7.2.686 [id number] [facility] 2021-04-16 00:00:00 2021-04-16 00:00:00 Orders Only Doctor Unassigned, [place] [facility] 1.2840.114 350.1.13.10 4.2.7.2.686 [id number] [facility] 2021-03-17 00:00:00 2021-03-17 00:00:00 Telephone Miky Nava [facility] 1.2840.114 350.1.13.10 4.2.7.2.686 [id number] [facility] 2021-03-16 20:08:00 2021-03-16 23:24:00 Emergency Fabrice Chakraborty [facility] 1.2840.114 350.1.13.10 4.2.7.2.686 [id number] [facility] 2021-03-14 18:59:34 2021-03-14 20:19:13 Urgent Care Lydia Desouza Unknown, Attending [facility] 1.2840.114 350.1.13.10 4.2.7.2.686 [id number] [facility] 2021-03-14 19:00:00 2021-03-14 19:00:00 Outpatient R UNKNOWN, ATTENDING [facility] [id number] [facility] 2021-02-19 10:49:00 2021-02-19 14:48:00 Emergency Anali Monroy [facility] 1.2.840.114 350.1.13.10 4.2.7.2.686 [id number] [facility] 2019-03-09 00:00:00 2019-03-09 00:00:00 Yehuda Zimmerman [facility] 1.2.840.114 350.1.13.10 4.2.7.2.686 [id number] 2019-03-09 00:00:00 2019-03-09 00:00:00 Yehuda Zimmerman [facility] 1.2.840.114 350.1.13.10 4.2.7.2.686 [id number] [facility] Results Test Description Test Time Test Comments Results Result Co mments Source BLOOD [id number] 07:00:09* Test Item Value Reference Range Interpretation Comme nts CULTURE (BEAKER) (test code = 1095) No growth in 5 days T-SPOT(R).[id number] 18:35:00* Test Item Value Reference Range Interpretation Comme nts T-SPOT.TB (test code = 9200391) Negative SeeBelow Normal Value: Ne gativeA negative [...] 20150905) 0 NEGATIVE CONTROL (test code = 6796941) Passed POSITIVE CONTROL (test code = 8592749) Passed LYNDSAY (test code = LYNDSAY) [id number] [facility][id number] 18:35:00* Test Item Value Reference Range Interpretation [...] CORRECTED FOR NEG CONTROL (test code = 0778678) 0 NEGATIVE CONTROL (test code = 5471839) Passed POSITIVE CONTROL (test code = 9015067) Passed LYNDSAY (test code = LYNDSAY) [id number] [facility][id number] 18:35:00* Test Item Value Reference Range Interpretation Comme nts T-SPOT.TB (test code = 1886494) Negative SeeBelow Normal Value: Ne gativeA negative [...] 20150905) 0 NEGATIVE CONTROL (test code = 20150906) Passed POSITIVE CONTROL (test code = 20150907) Passed LYNDSAY (test code = LYNDSAY) [id number] [facility][id number] 18:35:00* Test Item Value Reference Range Interpretation [...] 20150905) 0 NEGATIVE CONTROL (test code = 5031896) Passed POSITIVE CONTROL (test code = 2634750) Passed LYNDSAY (test code = LYNDSAY) [id number] [facility][id number] 18:35:00* Test Item Value Reference Range Interpretation Comme nts T-SPOT.TB (test code = 3919618) Negative SeeBelow Normal Value: Ne gativeA negative [...] CORRECTED FOR NEG CONTROL (test code = 8531811) 1 PANEL B SPOT COUNT CORRECTED FOR NEG CONTROL (test code = 5743736) 0 NEGATIVE CONTROL (test code = 3711545) Passed POSITIVE CONTROL (test code = 4556001) Passed LYNDSAY (test code = LYNDSAY) [id number] [facility][id number] 18:35:00* Test Item Value Reference Range Interpretation Comme nts T-SPOT.TB (test code = 1312541) Negative SeeBelow Normal Value: Ne gativeA negative [...] CORRECTED FOR NEG CONTROL (test code = 8429637) 1 PANEL B SPOT COUNT CORRECTED FOR NEG CONTROL (test code = 0461121) 0 NEGATIVE CONTROL (test code = 3905964) Passed POSITIVE CONTROL (test code = 2964084) Passed LYNDSAY (test code = LYNDSAY) [id number] [facility][id number] 18:35:00* Test Item Value Reference Range Interpretation [...] CORRECTED FOR NEG CONTROL (test code = 8257417) 0 NEGATIVE CONTROL (test code = 0138795) Passed POSITIVE CONTROL (test code = 9380272) Passed LYNDSAY (test code = LYNDSAY) [id number] [facility][id number] 18:35:00* Test Item Value Reference Range Interpretation [...] 20150905) 0 NEGATIVE CONTROL (test code = 1473600) Passed POSITIVE CONTROL (test code = 20150907) Passed LYNDSAY (test code = LYNDSAY) [id number] [facility][id number] 18:35:00* Test Item Value Reference Range Interpretation [...] 20150905) 0 NEGATIVE CONTROL (test code = 3893299) Passed POSITIVE CONTROL (test code = 2647747) Passed LYNDSAY (test code = LYNDSAY) [id number] [facility] [id number] 13:41:18 Transesophageal Echocardiography Report (CHETAN) Demographics Patient Name YUE LAWS Date of Study 06/16/2023 ESTELLE Gender Female Visit Number [id number] Race Room Number 1055 Number Date of 1970 Referring Physician Age 53 year(s) Director Of Vocational Guidance Interpreting Physician Brian MDProcedure Type of Study [...] Tricuspid Valve Partially visualized. Pulmonic Valve Not visualized.[facility] [id number] 09:55:41* Test Item Value Reference Range Interpretation Comme nts Result (test code = 6463-4) No MRSA isolated [facility] [id number] 09:55:41* Test Item Value Reference Range Interpretation Comme nts Result (test code = 6463-4) No MRSA isolated [facility] [id number] 09:55:41* Test Item Value Reference Range Interpretation Comme nts Result (test code = 6463-4) No MRSA isolated [facility] [id number] 09:55:41* Test Item Value Reference Range Interpretation Comme nts Result (test code = 6463-4) No MRSA isolated [facility] [id number] 09:55:41* Test Item Value Reference Range Interpretation Comme nts Result (test code = 6463-4) No [facility] [id number] 09:55:41* Test Item Value Reference Range Interpretation Comme nts Result (test code = 6463-4) No [facility] [id number] 09:55:41* Test Item Value Reference Range Interpretation Comme nts Result (test code = 6463-4) No MRSA isolated [facility] [id number] 09:55:41* Test Item Value Reference Range Interpretation Comme nts Result (test code = 6463-4) No [facility] [id number] 09:55:41* Test Item Value Reference Range Interpretation Comme nts Result (test code = 6463-4) No MRSA isolated [facility] [id number] 09:55:41* Test Item Value Reference Range Interpretation Comme nts CULTURE (Eduquia) (test code = 1095) No MRSA isolated CRYPTOCOCCAL [id number] 15:50:36* Test Item Value Reference Range Interpretation Comme nts CRYPTOCOCCAL ANTIGEN, SERUM (LeiyooAKER) (test code = 1828) Negative Negative, Interference SPUTUM CULTURE + GRAM [id number] 10:30:11* Test Item Value Reference Range Interpretation Comme nts CULTURE (LINNEAAKER) (test code = 1095) PSEUDOMONAS AERUGINOSA A [...] GRAM STAIN RESULT (BEAKER) (test code = 254318) 10-15 epithelial cells GRAM STAIN RESULT (BEAKER) (test code = 834176) 2+ gram positive cocci in chains and pairs GRAM STAIN RESULT (BEAKER) (test code = 583128) 1+ gram negative rods GRAM STAIN RESULT (BEAKER) (test code = 316681) 1+ yeast 2+ Normal respiratory rebel presentVANCOMYCIN LEVEL, [id number] 06:41:26* Test Item Value Reference Range Interpretation Comme nts VANCOMYCIN TROUGH (BEAKER) ( test code = 522) 17.0 ug/mL 10.0-20.0 Wool Handler ID - ADMINECHO W CONTRAST & [id number] 13:44:03Transthoracic Echocardiography Report (TTE) Demographics Patient Name YUE LAWS Date of Study 06/14/2023 ESTELLE Gender Female Visit Number [id number] Race Room Number 1055 Number Date of 1970 Referring Aydee Go MD Physician Age 53 year(s) Director Of Vocational Guidance James Albarran RDCS Interpreting Physician Brian MDProcedure [...] normal by Doppler visualized. Aorta Aortic root size(SInus of Valsalva diameter) is normal . Proximal [...] msec Deceleration Time: 667 msec AV DVI: 0.63LVOT Peak Velocity: 1.18 m/s Peak Gradient: 5.66 mmHg Mean Velocity: 0.86 m/s Mean Gradient: 3.28 mmHg LVOT Diameter: 2.03 cm LVOT VTI: 21.8 cm LVOT Area: 3.24 cm^2 LVOT SV:70.52 ml LVOT CO: 6.49 l/min LVOT CI: 3.42 l/min/m^2 Pulmonic Valve Peak Velocity: 0.85 m/s Peak Gradient: 2.89 mmHgMad River [facility] Hospital HEMOGLOBIN [id number] 09:26:42* Test Item Value Reference Range Interpretation [...] 5.7- 6.4% indicates increased risk for diabetes (prediabetes)."Wool Handler ID - ADMOperator ID - ADMECG 12 [id number] 09:06:12Ventricular Rate 97 BPMAtrial Rate 97 BPMP-R Interval 146 msQRS Duration 96 msQ-T Interval 378 msQTC Calculation(Bazett) 480 msP [place] 68 degreesR [place] 107 degreesT [place] 18 degrees Suspect arm leadreversal, interpretation assumes no reversalNormal sinus rhythmRightward axisNonspecific T wave abnormalityAbnormal ECGWhen compared with ECG of 30-MAR-2023 13:06,QRS axis Shifted rightConfirmed by Luis Lopez ([id number]) on 06/14/2023 9:06:07 [facility] [id number] 09:06:12Ventricular Rate 97 BPMAtrial Rate 97 BPMP-R Interval 146 msQRS Duration 96 msQ-T Interval 378 msQTC Calculation(Bazett) 480 msP [place] 68 degreesR [place] 107 degreesT [place] 18 degrees Suspect arm leadreversal, interpretation assumes no reversalNormal sinus rhythmRightward axisNonspecific T wave abno rmalityAbnormal ECGWhen compared with ECG of 30-MAR-2023 13:06,QRS axis Shifted rightConfirmed by Luis Lopze ([id number]) on 06/14/2023 9:06:07 [facility] CenterBASI METABOLIC [id number] 04:48:18* Test Item Value Reference Range Interpretation [...] GFR is not applicable for dialysis patients Wool Handler ID - ADMINCBC (HEMOGRAM ONLY)2023-06-14 04:22:50* Test [...] 413) 0 /100 WBC 0-0 Strep pneumoniae [id number] 23:34:41* Test Item Value Reference Range Interpretation Comme nts Strep pneumoniae Antigen (test code = 46661-7) Presumptive negative for pneumococcal pneumonia - see [...] the test. Lab Interpretation (test code = 85486-3) [facility] [id number] 23:34:41* Test Item Value Reference Range Interpretation Comme nts Strep pneumoniae Antigen (test code = 74937-5) Presumptive negative for pneumococcal pneumonia - see [...] the test. Lab Interpretation (test code = 62080-1) [facility] [id number] 23:34:41* Test Item Value Reference Range Interpretation Comme nts Strep pneumoniae Antigen (test code = 39227-0) Presumptive negative for pneumococcal pneumonia - see [...] the test. Lab Interpretation (test code = 43879-0) [facility] [id number] 23:34:41* Test Item Value Reference Range Interpretation Comme nts Strep pneumoniae Antigen (test code = 55224-4) Presumptive negative for pneumococcal pneumonia - see [...] the test. Lab Interpretation (test code = 52347-2) [facility] [id number] 23:34:41* Test Item Value Reference Range Interpretation Comme nts Strep pneumoniae Antigen (test code = 74241-6) Presumptive negative for pneumococcal pneumonia - see [...] the test. Lab Interpretation (test code = 49622-1) [facility] [id number] 23:34:41* Test Item Value Reference Range Interpretation Comme nts Strep pneumoniae Antigen (test code = 09538-8) Presumptive negative for pneumococcal pneumonia - see [...] the test. Lab Interpretation (test code = 47693-0) [facility] [id number] 23:34:41* Test Item Value Reference Range Interpretation Comme nts Strep pneumoniae Antigen (test code = 25720-1) Presumptive negative for pneumococcal pneumonia - see [...] the test. Lab Interpretation (test code = 20555-0) [facility] [id number] 23:34:41* Test Item Value Reference Range Interpretation Comme nts Strep pneumoniae Antigen (test code = 02430-8) Presumptive negative for pneumococcal pneumonia - see [...] the test. Lab Interpretation (test code = 27244-3) [facility] [id number] 23:34:41* Test Item Value Reference Range Interpretation Comme nts Strep pneumoniae Antigen (test code = 65613-7) Presumptive negative for pneumococcal pneumonia - see [...] the test. Lab Interpretation (test code = 85746-1) Normal [facility] PNEUMONIAE [id number] 23:34:41* Test Item Value Reference Range Interpretation [...] detection limit of the test. Legionella antigen, [id number] 23:29:07* Test Item Value Reference Range Interpretation Comme [facility] Legionella Urine Antigen (test code = 76035-3) Negative - see comment Negative Negative for L. pneumophila serogroup 1 antigen, suggesting no recent or current infection with this serogroup. Legionellosis cannot be ruled out since other serogroups and species may cause disease. Lab Interpretation (test code = 15040-9) Normal [facility] HospitalLegionella antigen, [id number] 23:29:07* Test Item Value Reference Range Interpretation Comme nts Legionella Urine Antigen (test code = 33830-2) Negative - see comment Negative Negative for L. pneumophila serogroup 1 antigen, suggesting no recent or current infection with this serogroup. Legionellosis cannot be ruled out since other serogroups and species may cause disease. Lab Interpretation (test code = 84365-1) Normal [facility] HospitalLegionella antigen, [id number] 23:29:07* Test Item Value Reference Range Interpretation Comme [facility] Legionella Urine Antigen (test code = 42794-0) Negative - see comment Negative Negative for L. pneumophila serogroup 1 antigen, suggesting no recent or current infection with this serogroup. Legionellosis cannot be ruled out since other serogroups and species may cause disease. Lab Interpretation (test code = 30971-7) Normal [facility] HospitalLegionella antigen, [id number] 23:29:07* Test Item Value Reference Range Interpretation Comme [facility] Legionella Urine Antigen (test code = 65880-6) Negative - see comment Negative Negative for L. pneumophila serogroup 1 antigen, suggesting no recent or current infection with this serogroup. Legionellosis cannot be ruled out since other serogroups and species may cause disease. Lab Interpretation (test code = 46829-5) Normal [facility] HospitalLegionella antigen, [id number] 23:29:07* Test Item Value Reference Range Interpretation Comme [facility] Legionella Urine Antigen (test code = 41092-5) Negative - see comment Negative Negative for L. pneumophila serogroup 1 antigen, suggesting no recent or current infection with this serogroup. Legionellosis cannot be ruled out since other serogroups and species may cause disease. Lab Interpretation (test code = 12099-0) Normal [facility], [id number] 23:29:07* Test Item Value Reference Range Interpretation Comme nts Legionella Urine Antigen (test code = 78439-2) Negative - see comment Negative Negative for L. pneumophila serogroup 1 antigen, suggesting no recent or current infection with this serogroup. Legionellosis cannot be ruled out since other serogroups and species may cause disease. Lab Interpretation (test code = 01979-1) Normal [facility] HospitalLegionella antigen, [id number] 23:29:07* Test Item Value Reference Range Interpretation Comme nts Legionella Urine Antigen (test code = 42409-7) Negative - see comment Negative Negative for L. pneumophila serogroup 1 antigen, suggesting no recent or current infection with this serogroup. Legionellosis cannot be ruled out since other serogroups and species may cause disease. Lab Interpretation (test code = 95712-6) Normal [facility] HospitalLegionella antigen, [id number] 23:29:07* Test Item Value Reference Range Interpretation Comme nts Legionella Urine Antigen (test code = 35079-5) Negative - see comment Negative Negative for L. pneumophila serogroup 1 antigen, suggesting no recent or current infection with this serogroup. Legionellosis cannot be ruled out since other serogroups and species may cause disease. Lab Interpretation (test code = 09377-7) Normal [facility] HospitalLegionella antigen, [id number] 23:29:07* Test Item Value Reference Range Interpretation Comme nts Legionella Urine Antigen (test code = 95722-9) Negative - see comment Negative Negative for L. pneumophila serogroup 1 antigen, suggesting no recent or current infection with this serogroup. Legionellosis cannot be ruled out since other serogroups and species may cause disease. Lab Interpretation (test code = 80756-1) Normal [facility] HospitalLEGIONELLA ANTIGEN, [id number] 23:29:07* Test Item Value Reference Range Interpretation Comme nts L. PNEUMOPHILA SEROGP 1 UR AG (BEAKER) (test code = 1156) Negative - see comment Negative Negative for L. pneumophila serogroup 1 antigen, suggesting no recent or current infection with this serogroup. Legionellosis cannot be ruled out since other serogroups and species may cause disease. Venous doppler arm, [id number] 20:05:32PV LAB - Upper Extremities Veins Demographics Patient Name YUE LAWS Date of Study 06/13/2023 ESTELLE Age 53 Visit Number [id number] Gender Female Accession Number [id number] Date of 1970 Referring Cara Burgess Room Number 1055 Physician Director Of Vocational Guidance Lisa Ruiz Interpreting John Solorio, Physician FellowProcedureType [...] in cm/s ; Diameters are measured in [facility]HIV[facility] ANTIGEN WITH HIV-1/2 [id number] 18:36:40* Test Item Value Reference Range Interpretation Comme nts HIV-1 ANTIGEN WITH HIV 1\\T\\2 ANTIBODY (2) (LATOYA) (test code = 2586) Nonreactive Nonreactive MR lumbar spine without & with IV [id number] 14:53:29MR LUMBAR SPINE WITH & WITHOUT IV [...] x 1.7x 1.7 cm. Dorsal paraspinal musculature W9deivyptdzvfkax. Postcontrast imaging demonstrates mild peripheralenhancement of the dorsal paraspinal fluid collection. Left adrenalgland 2.9 cm nodule.[facility] HospitalMR LUMBAR SPINE WITH & WITHOUT IV [id number] 14:53:29[facility] 1970 Sex: FMR LUMBAR [...] 1.7 x 1.7 cm. Dorsal paraspinal musculature P6vombugpsylawbe. Postcontrast imaging demonstrates mild peripheralenhancement of the [...] Signed By: Ryan Buckley06/13/2023 14:55 CDTWorkstation Name: [id number] KINASE (CK)2023-06-13 11:54:02* Test Item Value Reference Range Interpretation Comme nts CREATINE KINASE TOTAL (BEAKE R) (test code = 380) 43 U/L 29-200 Wool Handler ID - ADMINCOMPREHENSIVE METABOLIC [id number] 06:48:22* Test Item Value Reference Range Interpretation [...] GFR is not applicable for dialysis patients Wool Handler ID - ADMINPROTHROMBIN TIME/[id number] 06:40:01* Test Item Value Reference Range Interpretation [...] code = 2801) 1.70 % 0.00-1.00 H [id number] 05:26:09* Test Item Value Reference Range Interpretation Comme nts MAGNESIUM (BEAKER) (test cod e = 627) 2.0 mg/dL 1.6-2.6 Wool Handler ID - [id number] 05:26:09* Test Item Value Reference Range Interpretation Comme nts PHOSPHORUS (BEAKER) (test co de = 604) 3.5 mg/dL 2.3-4.7 Wool Handler ID - ADMINBASIC METABOLIC [id number] 05:26:08* Test Item Value Reference Range Interpretation [...] GFR is not applicable for dialysis patients Wool Handler ID - ADMINCBC W/PLT COUNT & AUTO [id number] 05:11:15* Test Item Value Reference Range Interpretation [...] 0.70 % 0.00-1.00 XR spine lumbar 1 [id number] 10:32:20XR SPINE LUMBAR 1 VIEW CLINICAL INDICATION: L3-4 LAMINECTOMY COMPARISON: NoneMad [facility] HospitalXR SPINE LUMBAR 1 [id number] 10:32:20 [facility] : 1970 Sex: FXR SPINE LUMBAR 1 VIEWCLINICAL INDICATION: L3-4 LAMINECTOMYCOMPARISON: NoneIMPRESSION:A single lateral view of the lumbar spine is obtained intraoperatively.The posterior approach surgical instrument is seen at the L3-L4 level,inferior to the L3 spinous process. Results were communicated to , who concurred with the above findings. Electronically Signed By: Maxim Ramos08/01/2022 10:34 CDTWo rkstation Name: [id number] SPINE LUMBAR 1 [id number] 10:29:18 [facility] : 1970 Sex: FCLINICAL HISTORY: L3-4 LAMINECTOMYTECHNIQUE: [...] Signed By: Maxim Ramos08/01/2022 10:31 CDTWorkstation Name: [id number] Screen, [id number] 05:32:52* Test Item Value Reference Range Interpretation Comme nts Preg Test, Ur (test code = 2111-07) Negative Negative Lab Interpretation (test cod e = 92930-1) Normal [facility] HospitalPregnancy Screen, [id number] 05:32:52* Test Item Value Reference Range Interpretation Comme nts Preg Test, Ur (test code = 2111-07) Negative Negative Lab Interpretation (test cod e = 26106-4) Normal [facility] HospitalPregnancy Screen, [id number] 05:32:52* Test Item Value Reference Range Interpretation Comme nts Preg Test, Ur (test code = 2111-07) Negative Negative Lab Interpretation (test cod e = 59704-8) Normal [facility] HospitalPregnancy Screen, [id number] 05:32:52* Test Item Value Reference Range Interpretation Comme nts Preg Test, Ur (test code = 2111-) Negative Negative Lab Interpretation (test cod e = 55212-0) Normal [facility] HospitalPregnancy Screen, [id number] 05:32:52* Test Item Value Reference Range Interpretation Comme nts Preg Test, Ur (test code = 2111-) Negative Negative Lab Interpretation (test cod e = 81827-5) Normal [facility] HospitalPregnancy Screen, [id number] 05:32:52* Test Item Value Reference Range Interpretation Comme nts Preg Test, Ur (test code = 2111-1) Negative Negative Lab Interpretation (test cod e = 73715-7) Normal [facility] HospitalPregnancy Screen, [id number] 05:32:52* Test Item Value Reference Range Interpretation Comme nts Preg Test, Ur (test code = 2-1) Negative Negative Lab Interpretation (test cod e = 50937-4) Normal [facility] HospitalPregnancy Screen, [id number] 05:32:52* Test Item Value Reference Range Interpretation Comme nts Preg Test, Ur (test code = 2-1) Negative Negative Lab Interpretation (test cod e = 63812-7) Normal [facility] HospitalPregnancy Screen, [id number] 05:32:52* Test Item Value Reference Range Interpretation Comme nts Preg Test, Ur (test code = 2111-1) Negative Negative Lab Interpretation (test cod e = 12465-6) Normal [facility] HospitalPregnancy Screen, [id number] 05:32:52* Test Item Value Reference Range Interpretation Comme nts Preg Test, Ur (test code = 2111-) Negative Negative Lab Interpretation (test cod e = 86443-1) Normal [facility] HospitalPregnancy Screen, [id number] 05:32:52* Test Item Value Reference Range Interpretation Comme nts Preg Test, Ur (test code = 2111-1) Negative Negative Lab Interpretation (test cod e = 57203-6) Normal [facility] HospitalPregnancy Screen, [id number] 05:32:52* Test Item Value Reference Range Interpretation Comme nts Preg Test, Ur (test code = 2111-1) Negative Negative Lab Interpretation (test cod e = 64927-3) Normal [facility] HospitalPREGNANCY SCREEN, [id number] 05:32:52* Test Item Value Reference Range Interpretation Comme nts TEST URINE (BEAKER ) (test code = 583) Negative Negative BASIC METABOLIC [id number] 23:30:54* Test Item Value Reference Range Interpretation [...] GFR is not applicable for dialysis patients Wool Handler ID - ADMINPT/[id number] 23:15:33* Test Item Value Reference Range Interpretation [...] H CT neck soft tissue without IV msfouecb4200-04-20 13:45:22EXAM: CT NECK SOFT TISSUE WITHOUT IV [...] Postoperative changes from anterior cervical discectomy fusionat C3-L4Itlquclt Lung Apices: NormalCH[facility] HospitalCT NECK SOFT TISSUE WITHOUT IV [id number] 13:45:22 [facility]CCABE : 1970 Sex: FEXAM: CT NECK SOFT TISSUE WITHOUT IV CONTRASTCLINICAL INDICATION: Soft tissue mass, neck, spontane ous hemorrhage.TECHNIQUE: Helical CT examination of the neck [...] 0.8 x 2.3 cm (AP by transverse withsmallfoci of air noted.A 1.8 x 2.9 x [...] Postoperative changes from anterior cervical discectomy fusionat C3-K1Teknpidy Lung Apices: NormalIMPRESSION:Exam limited bylack of intravenous contrast.1. 1.8 x 2.9 x 1.3 cm ill-defined fluid collection in the leftanterolateral neck soft tissues, suggesting evolving postoperativehemorrhage. Superimposed infection is not e xcluded.2. Retropharyngeal fluid and air measuring up to 0.8 cm in thickness,favored to be present postoperative right frontal edema. Superimposedinfection is not excluded.3. Postoperative changes from ACDF at C3- C8Gagtksruwljtlf Signed By: Maxim Ramos07/31/2022 13:47 CDTWorkstation Name: [id number] METABOLIC [id number] 08:13:13* Test Item Value Reference Range Interpretation [...] GFR is not applicable for dialysis patients Wool Handler ID - BVCBC W/PLT COUNT & AUTO [id number] 07:46:31* Test Item Value Reference Range Interpretation [...] 0.00-1.00 XR spine cervical 2 or 3 [id number] 20:24:23TECHNIQUE: Frontal and lateral views of the cervical spine. INDICATION: Postop Standing Films. COMPARISON: None.[facility] HospitalXR SPINE CERVICAL 2 OR 3 [id number] 20:24:23[facility] : 1970 Sex: FTECHNIQUE: Frontal [...] Signed By: Zachariah Garcia05/28/2023 20:26 CDTWorkstation Name: [id number] fluoro non-specific up to 1 hour 2023-05-28 11:45:16This is a non-reportable study with no Radiologist dictation. Please refer to your PACS to review images, or Doc Flowsheets for documentation on studies without images.[facility] HospitalFL FLUORO NON-SPECIFIC UP TO 1 [id number] 11:45:16 [facility] : 1970 Sex: FThis is a non- reportable study with no Radiologist dictation. Please refer to your PACS to review images, or Doc Flowsheets for documentation on studies without images.FL FLUORO NON-SPECIFIC UP TO 1 [id number] 10:13:02 [facility] : 1970 Sex: FTECHNIQUE: 1 lateral fluoroscopic image of the cervical spine forlocalization.Fluoroscopic time: 3second(s).FINDINGS:The surgical pointer is at C3-C4.The findings were discussed with Dr. Garcia in theOR who concurred withthe findings.IMPRESSION:Intraoperative localization plain film as described abo ta.Electronically Signed By: Derik Reyez05/28/2023 10:15 CDTWorkstation Name: [id number], QUANTITATIVE, [id number] 08:21:03* Test Item Value Reference Range Interpretation Comme nts GONADOTROPIN, CHORIONIC (HCG ) QUANT (BEAKER) (test code = 649) < mIU/mL 0-10 Non- Females: <10 mIU/mL Females: Gestation Age Reference Range(mIU/mL) 0.2-1 Week 5-50 1-2 Weeks 50-500 2-3 Weeks 100-5,000 3-4 Weeks 500-10,000 4-5 Weeks 1,000-50,000 5-6 Weeks 10,000-100,000 6-8 Weeks 15,000- 200,000 2-3 Months 10,000-100,000 Wool Handler ID - ADMINCULTURE, [id number] 09:28:30SPECIMEN NUMBER: [id number] CULTURE, URINE SPECIMEN NUMBER: [id number] SPECIMEN COMMENT: URINE SOURCE: URINE REPORT STATUS: FINAL FINAL REPORT: 05/15/2023 >100,000 CFU/ML UROGENITAL REBEL PRESENT NOCOMMON PATHOGENS UNLESS OTHERWISE INDICATED, ALL TESTING PERFORMED AT [facility] [address] [place] [address] VP CONSTRUCTION: JANNY STEINER M.D. CLIA NUMBER [id number] [place]. [id number], [id number] 12:02:50SPECIMEN NUMBER: [id number] CULTURE, URINE SPECIMEN NUMBER: [id number] SOURCE: URINE REPORT STATUS: FINAL FINAL REPORT: 05/13/2023 NO SPECIMEN RECEIVED FOR TESTING. CHARGES DELETED.BASIC METABOLIC [id number] 04:48:43* Test Item Value Reference Range Interpretation Comme nts GLUCOSE (test code = 2217) 117 MG/DL 70-99 H BUN (test code = 2208) 20 MG/DL 6-20 CREATININE (test code = 2214) 0.83 MG/DL 0.60-1.30 eGFR (2020 CKD-EPI) (test co de = 82331) 85 ML/MIN/1.73 >60 SODIUM (test code = [...] 12.7 SECONDS 12.5-14.7 INR (test code = 43151) 0.9 SEE BELOW CURRENT RECOMMENDATIONS ARE FOR AN INR OF 2.0-3.0 FOR ALL PATIENTS ON VITAMIN K ANTAGONISTS, EXCEPT THOSE WITH PROSTHETIC HEART VALVES, FOR WHOM INR OF 2.5-3.5 IS RECOMMENDED. UNLESS OTHERWISE INDICATED, ALL TESTING PERFORMED AT [facility] [address] [place] [address] VP CONSTRUCTION: JANNY STEINER M.D. CLIA NUMBER [id number] [place] [id number] CBC W/AUTO DIFF WITH [id number] 01:54:17* Test Item Value Reference Range Interpretation [...] H ABS NUCLEATED RBCS (test code = 71888) 0.00 K/UL 0.00-0.11 ECG 12 [id number] 14:02:48Ventricular Rate 102 BPMAtrial Rate 102 BPMP-R Interval 146 msQRS Duration 90 msQ-T Interval 372 msQTC Calculation(Bazett) 484 msP [place] 11 degreesR [place] -53 degreesT [place] 29 degrees Sinus tachycardiaPossible Left atrial enlargementLeft axis deviationPoor R wave progression Cannot rule out Anterior infarct , age undetermined vs lead misplacementNonspecific T wave abnormalityProlonged QTAbnormal ECGNo previous ECGs availableConfirmed by David GARCIA BASANT ([id number]) on 04/06/2023 2:02:46 [facility] W CONTRAST & [id number] 13:11:39Transthoracic Echocardiography Report (TTE) Demographics Patient Name YUE LAWS Date of Study 03/31/2023 ESTELLE Gender Female Visit Number [id number] Race Room Number 2227 Number Date of 1970 Referring Physician Mariah Aldridge MD Age 53year(s) Director Of Vocational Guidance Wilmer Francois Explosive Operator [employer] Josefina Corbett [facility] Interpreting Physician Melody MDProcedure Type of Study [...] moderate aortic regurgitation. No evidence of aortic stenosis.Mitral Valve Mild MV leaflet thickening. Mild mitral [...] LA Area: 24.9 cm^2 LA Vol. Index: 42ml/m^2 Left Ventricle LVIDd: 5.46 cm LV Septum Diastolic: 1.04 cm LV PW Diastolic: 1.03 cm LVEDV Downs's:152.05 ml LVESV Downs's:104.5 ml LVEF Downs's: 31.3 % LVEDVI: 79 ml/m^2 LVESVI: 54 ml/m^2 LVOT Diameter: 2.19 cm Right Ventricle RVOT VTI: 10.69 cmAorta Ao Root S of Rosangela.: 3.08 cmDoppler/Q uantitative Measurements Mitral Valve MV Peak E-Wave: 1.24 [...] ml LVOT CO: 5.7 l/min LVOT CI: 2.97l/min/m^2 Tricuspid Valve TR Velocity: 2.73 m/s TR Gradient: 29.86 mmHg Pulmonic Valve Peak Velocity: 0.74 m/s Peak Gradient: 2.22 mmHgMad River Community HospitalXR chest 1 view portable / [id number] 15:39:07TECHNIQUE: Frontal view of the chest. INDICATION: CHf. COMPARISON: None. FINDINGS: LINES/TUBES: None. HEART AND MEDIASTINUM: Cardiomediastinal contour is within normallimits. LUNGS: The lungs are well inflated and clear. No consolidation orpulmonary edema. PLEURA: No pneumothorax. No significant pleural effusion. SOFT TISSUES AND BONES: Cervical spinal fixation hardware is noted.[facility] HospitalXR CHEST 1 VIEW PORTABLE / [id number] 15:39:07 [facility] : 1970 Sex: FTECHNIQUE: Frontal view of the chest.INDICATION: CHf.COMPARISON: None.FINDINGS:LINES/TUBES: None.H EART AND MEDIASTINUM: Cardiomediastinal contour is within normallimits. LUNGS: The lungs are well inflated and clear. No consolidation orpulmonary edema.PLEURA: No pneumothorax. No significant pleural effusion.SOFT TISSUES AND BONES: Cervical spinal fixation hardware is noted.IMPRESSION:No acute car diopulmonary process.Electronically Signed By: Jose Carlos Lebron04/01/2023 15:41 CDTWorkstation Name: [id number] NATRIURETIC FACTOR (BNP)2023-04-01 14:15:07* Test Item Value Reference Range Interpretation Comme nts B-TYPE NATRIURETIC PEPTIDE ( BEAKER) (test code = 700) 192 pg/mL 0-100 H Wool Handler ID - ADMINMR spine cervical without IV [id number] 11:30:35MRI cervical spine without contrast CLINICAL HISTORY: [...] and paraspinal soft tissues are within normal limits.[facility] [id number] 11:30:35 [facility] 1970 Sex: FMRI cervical spine without contrastCLINICAL HISTORY: Cervical radiculopathy, no red flagsTECHNIQUE: Multiplanar, multisequence noncontrast MRI of the cervicalspine was performed.COMPARISON: None available.FINDINGS:Vertebral body height and alignment is within normal limits. The bonemarrow signal is normal.Postoperative changes from C4-C7 anterior cervical fusion.The craniocervical junction and v isualized intracranial compartment areunremarkable.T2/STIR hyperintensity seen within the [...] canal or neural foraminal stenosis.C6-C7: No significant spinalcanal or neural foraminal stenosis. C7-T1: Facet arthropathy with moderate to severe left neural foraminalstenosis.The prevertebral and paraspinal soft tissues are within normal limits.IMPRESSION:1. 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 moderate to severe left neural foraminal stenosis at C7-T1.3. Postoperative changes from p rior C4-C7 anterior cervical fusion.Electronically Signed By: Maxim Sultana03/31/2023 11:32 CDTWorkstation Name: [id number] METABOLIC [id number] 04:43:14* Test Item Value Reference Range Interpretation [...] GFR is not applicable for dialysis patients Wool Handler ID - MADELINE WCBC (HEMOGRAM ONLY)2023-03-31 04:20:07* Test Item Value Reference [...] 0 /100 WBC 0-0 Arterial doppler legs [id number] 17:44:07PV LAB - Lower Extremity Arterial Duplex Demographics Patient Name YUE LAWS Date of Study ESTELLE Age 53 Visit Number [id number] Gender Female Accession Number [id number] Date of 1970 Referring Mariah Aldridge, Room Number 2227 Physician Director Of Vocational Guidance Yovana Akins Interpreting John Solorio, Physician FellowProcedureType of Study: ExtremitiesArteries: Lower Extremities Arterial Duplex, ARTERIAL DOPPLER LEGS, BILATERAL.Indications for Study:PVD.Patient Status:Routine.Study Location:Vascular Lab.Technical Quality:Adequate visualization.Risk FactorsHistory of Disease+ + + --+!Diagnosis !Date !Comments !+ + + ------+!History/Risk Factors: !03/30/2023!CHF, CVA, HTN. !+ +--- -------+ +ImpressionsRight Impression1. The common femoral, profunda femoral, superficial femoral, popliteal,posterior tibial, peroneal and anterior tibial arteries are patentwithbiphasic and triphasic Doppler waveforms throughout.2. There was [...] diffuse, calcified plaque.3. The digits are dusky andcool to the touch. Conclusions Summary Arterial duplex [...] + + + + + + !Prox DRIER OPERATOR ! !32 ! !Biphasic ! !60.9 ! !Triphasic ! + + + + + + + + + + !Mid DRIER OPERATOR ! !25.9 ! !Biphasic ! !59.7 ! !Triphasic ! + + + + + + + + + + !Dist DRIER OPERATOR ! !33.2 ! !Biphasic ! !37.4 ! !Biphasic ! +---- + + + + + + + + + !Prox KENDRA ! !56.2 ! !Biphasic ! !60.5 ! !Triphasic ! + + + + + + + + + + !Mid KENDRA ! !36.7 ! !Biphasic ! !47.9 ! !Biphasic ! +--------- + + + + + + + + + !Dist KENDRA ! !37 .4 ! !Biphasic ! !58.1 ! !Biphasic ! [...] + + + + + + +[facility](Ankle[facility]ach[facility])2023-03-30 17:13:47PV LAB - Lower Extremity Arterial Procedure Demographics Patient Name YUE LAWS Date of Study 03/30/2023 ESTELLE Age 53 Visit Number [id number] Gender Female Accession Number [id number] Date of 1970 Referring Mariah Aldridge, Room Number 2227 Physician Director Of Vocational Guidance Yovana Akins Interpreting John Solorio, Physician FellowProcedureType [...] in cm/s ; Diameters are measured in [facility] thoracic spine without IV [id number] 12:50:50 THORACIC SPINE WITHOUT IV CONTRAST INDICATION: [...] and further reported on MRI lumbar spine. [facility] WITHOUT IV [id number] 12:50:50[facility] : 1970 Sex: FMR THORACIC [...] abnormality. T10-11 moderate right neural foraminal stenosis [id number] moderate bilateral foraminal stenosis due to facet [...] Signed By: Ryan Buckley03/30/2023 12:52 CDTWorkstation Name: [id number] spine lumbar without IV [id number] 12:33:57MR LUMBAR SPINE WITHOUT IV CONTRAST INDICATION: Unlisted Reason for ExamConcern for cord compression COMPARISON: None TECHNIQUE: Multiplanar, multisequence MR images of the lumbar spinewithout contrast. FINDINGS: For the purposes of this dictation, the 5 lowermost qykbgn-vwoblkhhwnpsz-tmob vertebral bodies are labeled L1-L5.Alignment of the [...] with mild to moderatebilateral neural foraminal stenosisCH[facility] HospitalMR LUMBAR SPINE WITHOUT IV [id number] 12:33:57 [facility] : 1970 Sex: FMR LUMBAR SPINE WITHOUT IV CONTRASTINDICATION: Unlisted Reason for ExamConcern for cord compressionCOMPARISON: NoneTECHNIQUE: Multiplanar, multisequence MR images of the lumbar spinewithout contrast. FINDINGS: For the purposes of this dictation, the 5 lowermost nnacsr-ieoqnmmnkdupm-tsul vertebralbodies are labeled L1- L5.Alignment of the lumbar spine is within normal limits. Vertebral body height is maintained. Bone marrow edema is seen at the inferior L3 and superior L4 vertebralbodies and bilateral L4 pedicles, favored to be degenerative in nature.Suggestion of a synovial cyst at the right T10-T11 level (series 301image eight).No spinal cord signal [...] spinal canal stenosis withclumping of the cauda equinanerve roots and moderate to severebilateral neural foraminal stenosisL4/L5: Moderate to severely degenerated disc with endplateirregularity. Symmetric disc bulge and facet arthropathy with moderateto severe bilateral neural foraminal stenosisL5/S1: Symmetric disc bulge and facet arthropathy with mild to moderatebilateral neural foraminal stenosisIMPRESSION:1. Degenerative changes within the spine, as detailed above, withoutacute fracture or malalignment identified. No spinal cord compressioniden tified.2. Severe degenerative spinal canal stenosis with clumping of the caudaequina nerve roots atL3-L4.3. Moderate to severe bilateral neural foraminal stenosis at L3-L4 andL4-L5.4. Moderate to severely degenerated disc with endplate irregularity atL4-L5.5. Degenerative bone marrow edema at the L3-L4 level.6. Ligament of flavum buckling versus synovial cyst at the diofnF69-J08 level (series 301 image eight). MRI thoracic spine can beconsidered for further evaluation.7. Mild clumping of the cauda equina nerve roots, which is nonspecificbut may represent arachnoiditis. Postcontrast imaging can be consideredfor further evaluation.Electronically Signed By: Maxim Sultana03/30/2023 12:36 CDTWorkstation Name: [id number] 11:45:01* Test Item Value Reference Range Interpretation Comme nts HEMOGLOBIN A1C ELECTROPHORESIS (BEAKER) (test code = 3811) 5.7 % See_Comment H [Automated me ssage] The system which generated this result transmitted reference range: <=5.6%. The reference range was not used to interpret this result as normal/abnormal. "The A1c is measured using a [facility]-certified method. HbA1c value equal to or greater than 6.5% as the diagnosis cutoff for diabetes. An HbA1c value of 5.7- 6.4% indicates increased risk for diabetes (prediabetes)."Wool Handler ID - ADMEEG AWAKE AND [id number] 09:57:53Steph Martinez MD 03/30/2023 9:[address] [facility] Type: Inpatient, outpatient, EMUDATE(s) OF EE03/30/23DATE OF REPORT: 03/30/23MRN: [id number] of : 1970EE-1454Start time: 08:36Stop time: 09:ICD-10: R56.9 CPT Code: 45943 (awake and asleep)HISTORY: 53 y/o female with [...] EEG recordings. Steph Elias MD, MPHNeurophysiology/Epilepsy AttendingCH[facility] EEG AWAKE AND [id number] 09:57:53Steph Martinez MD 03/30/2023 9:59 AMELECTROENCEPHALOGRAM FOR [facility] EEG Type: Inpatient, outpatient, EMUDATE(s) OF EE03/30/23DATE OF REPORT: 03/30/23MRN: [id number] of : 1970EE-1454Start time: 08:36Stop time: 09:23ICD-10: R56.9 CPT Code: 61892 (awake and asleep) HISTORY: 53 y/o female [...] and well regulated. More anteriorly, low voltage frontocentralbeta predominated. Drowsiness was characterized by alpha attenuation, decreased eye blinks and increased frontocentral theta. Sleep: Stage 2 sleep was reached characterized by symmetric sleep spindles and K- complexes. Slowing: None Attenuation: None Epileptiform, rhythmic or periodic patterns: NoneSeizures or clinical events: None HV: Hyperventilation was not performed. PHOTIC STIMULATION: Photic stimulation was done from 1-33 Hz; no photic driving was seen; photoparoxysmal responses were absent. ELECTROCARDIOGRAM: Normal Sinus Rhythm IMPRESSION: Normal Awake and Asleep EEG CLINICAL CORRELATION: This is a normal awake and asleep EEG. No areas of focal dysfunction or epileptiform dischargeswere seen. An EEG without epileptiform discharges does not exclude the possibility of epilepsy. If the clinical suspicion of epilepsy remains, consider additional EEG recordings. Steph Elias MD, MPHNeurophysiology/Epilepsy AttendingCH[facility] EEG AWAKE AND [id number] 09:57:53Steph Martinez MD 03/30/2023 9:59 AMELECTROENCEPHALOGRAM FOR [facility] EEG Type: Inpatient, outpatient, EMUDATE(s) OF EE03/30/23DATE OF REPORT: 03/30/23MRN: [id number] of : 1970EE-1454Start time: 08:36Stop time: :ICD-10: R56.9 CPT Code: 46485 (awake and asleep)HISTORY: 53 y/o female with [...] EEG recordings. Steph Elias MD, MPHNeurophysiology/Epilepsy AttendingCH[facility] VALPROIC ACID LEVEL, [id number] 09:42:31* Test Item Value Reference Range Interpretation Comme nts VALPROIC ACID TOTAL (BEAKER) (test code = 924) 76 ug/mL 50-100 Therapeutic range for some clinical conditions may be >100 ug/mLUrinalysis w/Microscopic + Reflex to [id number] 08:43:51* Test Item Value Reference Range Interpretation Comme nts Color, UA (test code = 5778-6) Yellow Clarity, UA (test code = 5767-9) Clear Specific [place], UA (test code = 5811-5) 1.033 1.001-1.035 pH, UA (test code = 5803-2) 6.0 5.0-8.0 Protein, UA (test code = 90137-1) 30 mg/dL Negative A Glucose, UA (test code = 365) Negative Negative Ketones, UA (test code = 2514-8) Negative Negative Bilirubin, UA (test code = 37023-1) Negative Negative Blood, UA (test code = 30000-6) Small Negative A Nitrite, UA (test code = 5802-4) Negative Negative Leukocytes, UA (test code = 5799-2) Negative Negative Urobilinogen, UA (test code = 00247-6) 0.2 0.2-1.0 RBC, UA (test code = 63558-6) 51 See_Comment [Automated message] The system which [...] Occasional Squam Epithel, UA (test code = 91607-1) See_Comment [Automated message] The system which generated this result transmitted reference range: /HPF. The reference range was not used to interpret this result as normal/abnormal. Specimen Source (test code = 2795) LYNDSAY (test code = LYNDSAY) Wool Handler ID - [auto]Wool Handler ID - tech Lab Interpretation (test code = 36131-6) Abnormal [facility] HospitalUrinalysis w/Microscopic + Reflex to Culture 2023-03-30 08:43:51* Test Item Value Reference Range Interpretation Comme nts Color, UA (test code = 5778-6) Yellow Clarity, UA (test code = 5767-9) Clear Specific [place], UA (test code = 5811-5) 1.033 1.001-1.035 pH, UA (test code = 5803-2) 6.0 5.0-8.0 Protein, UA (test code = 35806-4) 30 mg/dL Negative A Glucose, UA (test code = 365) Negative Negative Ketones, UA (test code = 2514-8) Negative Negative Bilirubin, UA (test code = 46754-7) Negative Negative Blood, UA (test code = 17432-5) Small Negative A Nitrite, UA (test code = 5802-4) Negative Negative Leukocytes, UA (test code = 5799-2) Negative Negative Urobilinogen, UA (test code = 34082-9) 0.2 0.2-1.0 RBC, UA (test code = 28394-0) 51 See_Comment [Automated message] The system which [...] Occasional Squam Epithel, UA (test code = 38940-7) See_Comment [Automated message] The system which generated this result transmitted reference range: /HPF. The reference range was not used to interpret this result as normal/abnormal. Specimen Source (test code = 2795) LYNDSAY (test code = LYNDSAY) Wool Handler ID - [auto]Wool Handler ID - tech Lab Interpretation (test code = 65009-5) Abnormal [facility]/Microscopic + Reflex to Culture 2023-03-30 08:43:51* Test Item Value Reference Range Interpretation Comme nts Color, UA (test code = 5778-6) Yellow Clarity, UA (test code = 5767-9) Clear Specific [place], UA (test code = 5811-5) 1.033 1.001-1.035 pH, UA (test code = 5803-2) 6.0 5.0-8.0 Protein, UA (test code = 60035-3) 30 mg/dL Negative A Glucose, UA (test code = 365) Negative Negative Ketones, UA (test code = 2514-8) Negative Negative Bilirubin, UA (test code = 59838-8) Negative Negative Blood, UA (test code = 95455-9) Small Negative A Nitrite, UA (test code = 5802-4) Negative Negative Leukocytes, UA (test code = 5799-2) Negative Negative Urobilinogen, UA (test code = 14639-7) 0.2 0.2-1.0 RBC, UA (test code = 65277-2) 51 See_Comment [Automated message] The system which [...] Occasional Squam Epithel, UA (test code = 88752-0) See_Comment [Automated message] The system which generated this result transmitted reference range: /HPF. The reference range was not used to interpret this result as normal/abnormal. Specimen Source (test code = 2795) LYNDSAY (test code = LYNDSAY) Wool Handler ID - [auto]Wool Handler ID - tech Lab Interpretation (test code = 07538-6) Abnormal [facility] w/Microscopic + Reflex to Culture 2023-03-30 08:43:51* Test Item Value Reference Range Interpretation Comme nts Color, UA (test code = 5778-6) Yellow Clarity, UA (test code = 5767-9) Clear Specific [place], UA (test code = 5811-5) 1.033 1.001-1.035 pH, UA (test code = 5803-2) 6.0 5.0-8.0 Protein, UA (test code = 90106-1) 30 mg/dL Negative A Glucose, UA (test code = 365) Negative Negative Ketones, UA (test code = 2514-8) Negative Negative Bilirubin, UA (test code = 10811-4) Negative Negative Blood, UA (test code = 17108-1) Small Negative A Nitrite, UA (test code = 5802-4) Negative Negative Leukocytes, UA (test code = 5799-2) Negative Negative Urobilinogen, UA (test code = 07035-2) 0.2 0.2-1.0 RBC, UA (test code = 09066-5) 51 See_Comment [Automated message] The system which [...] Occasional Squam Epithel, UA (test code = 79391-5) See_Comment [Automated message] The system which generated this result transmitted reference range: /HPF. The reference range was not used to interpret this result as normal/abnormal. Specimen Source (test code = 2795) LYNDSAY (test code = LYNDSAY) Wool Handler ID - [auto]Wool Handler ID - tech Lab Interpretation (test code = 91572-1) Abnormal [facility] + Reflex to Culture 2023-03-30 08:43:51* Test Item Value Reference Range Interpretation Comme nts Color, UA (test code = 5778-6) Yellow Clarity, UA (test code = 5767-9) Clear Specific [place], UA (test code = 5811-5) 1.033 1.001-1.035 pH, UA (test code = 5803-2) 6.0 5.0-8.0 Protein, UA (test code = 70638-6) 30 mg/dL Negative A Glucose, UA (test code = 365) Negative Negative Ketones, UA (test code = 2514-8) Negative Negative Bilirubin, UA (test code = 35489-1) Negative Negative Blood, UA (test code = 80754-1) Small Negative A Nitrite, UA (test code = 5802-4) Negative Negative Leukocytes, UA (test code = 5799-2) Negative Negative Urobilinogen, UA (test code = 24736-9) 0.2 0.2-1.0 RBC, UA (test code = 20771-8) 51 See_Comment [Automated message] The system which [...] Occasional Squam Epithel, UA (test code = 48987-9) See_Comment [Automated message] The system which generated this result transmitted reference range: /HPF. The reference range was not used to interpret this result as normal/abnormal. Specimen Source (test code = 2795) LYNDSAY (test code = LYNDSAY) Wool Handler ID - [auto]Wool Handler ID - tech Lab Interpretation (test code = 62801-2) Abnormal [facility]Micro[facility]opic + Reflex to Culture 2023-03-30 08:43:51* Test Item Value Reference Range Interpretation Comme nts Color, UA (test code = 5778-6) Yellow Clarity, UA (test code = 5767-9) Clear Specific [place], UA (test code = 5811-5) 1.033 1.001-1.035 pH, UA (test code = 5803-2) 6.0 5.0-8.0 Protein, UA (test code = 29694-5) 30 mg/dL Negative A Glucose, UA (test code = 365) Negative Negative Ketones, UA (test code = 2514-8) Negative Negative Bilirubin, UA (test code = 79363-6) Negative Negative Blood, UA (test code = 70453-7) Small Negative A Nitrite, UA (test code = 5802-4) Negative Negative Leukocytes, UA (test code = 5799-2) Negative Negative Urobilinogen, UA (test code = 34838-7) 0.2 0.2-1.0 RBC, UA (test code = 04842-9) 51 See_Comment [Automated message] The system which [...] Occasional Squam Epithel, UA (test code = 00466-1) See_Comment [Automated message] The system which generated this result transmitted reference range: /HPF. The reference range was not used to interpret this result as normal/abnormal. Specimen Source (test code = 2795) LYNDSAY (test code = LYNDSAY) Wool Handler ID - [auto]Wool Handler ID - tech Lab Interpretation (test code = 51840-7) Abnormal [facility]opic + Reflex to Culture 2023-03-30 08:43:51* Test Item Value Reference Range Interpretation Comme nts Color, UA (test code = 5778-6) Yellow Clarity, UA (test code = 5767-9) Clear Specific [place], UA (test code = 5811-5) 1.033 1.001-1.035 pH, UA (test code = 5803-2) 6.0 5.0-8.0 Protein, UA (test code = 38621-6) 30 mg/dL Negative A Glucose, UA (test code = 365) Negative Negative Ketones, UA (test code = 2514-8) Negative Negative Bilirubin, UA (test code = 39137-2) Negative Negative Blood, UA (test code = 46441-4) Small Negative A Nitrite, UA (test code = 5802-4) Negative Negative Leukocytes, UA (test code = 5799-2) Negative Negative Urobilinogen, UA (test code = 04542-3) 0.2 0.2-1.0 RBC, UA (test code = 31492-0) 51 See_Comment [Automated message] The system which [...] Occasional Squam Epithel, UA (test code = 00902-0) See_Comment [Automated message] The system which generated this result transmitted reference range: /HPF. The reference range was not used to interpret this result as normal/abnormal. Specimen Source (test code = 2795) LYNDSAY (test code = LYNDSAY) Wool Handler ID - [auto]Wool Handler ID - tech Lab Interpretation (test code = 00020-6) Abnormal [facility] + Reflex to Culture 2023-03-30 08:43:51* Test Item Value Reference Range Interpretation Comme nts Color, UA (test code = 5778-6) Yellow Clarity, UA (test code = 5767-9) Clear Specific [place], UA (test code = 5811-5) 1.033 1.001-1.035 pH, UA (test code = 5803-2) 6.0 5.0-8.0 Protein, UA (test code = 50714-3) 30 mg/dL Negative A Glucose, UA (test code = 365) Negative Negative Ketones, UA (test code = 2514-8) Negative Negative Bilirubin, UA (test code = 93141-5) Negative Negative Blood, UA (test code = 23699-4) Small Negative A Nitrite, UA (test code = 5802-4) Negative Negative Leukocytes, UA (test code = 5799-2) Negative Negative Urobilinogen, UA (test code = 21745-4) 0.2 0.2-1.0 RBC, UA (test code = 34076-4) 51 See_Comment [Automated message] The system which [...] Occasional Squam Epithel, UA (test code = 62629-1) See_Comment [Automated message] The system which generated this result transmitted reference range: /HPF. The reference range was not used to interpret this result as normal/abnormal. Specimen Source (test code = 2795) LYNDSAY (test code = LYNDSAY) Wool Handler ID - [auto]Wool Handler ID - tech Lab Interpretation (test code = 46166-8) Abnormal [facility] + Reflex to Culture 2023-03-30 08:43:51* Test Item Value Reference Range Interpretation Comme nts Color, UA (test code = 5778-6) Yellow Clarity, UA (test code = 5767-9) Clear Specific [place], UA (test code = 5811-5) 1.033 1.001-1.035 pH, UA (test code = 5803-2) 6.0 5.0-8.0 Protein, UA (test code = 76705-2) 30 mg/dL Negative A Glucose, UA (test code = 365) Negative Negative Ketones, UA (test code = 2514-8) Negative Negative Bilirubin, UA (test code = 05859-2) Negative Negative Blood, UA (test code = 55085-6) Small Negative A Nitrite, UA (test code = 5802-4) Negative Negative Leukocytes, UA (test code = 5799-2) Negative Negative Urobilinogen, UA (test code = 22208-6) 0.2 0.2-1.0 RBC, UA (test code = 15975-6) 51 See_Comment [Automated message] The system which [...] Occasional Squam Epithel, UA (test code = 21599-2) See_Comment [Automated message] The system which generated this result transmitted reference range: /HPF. The reference range was not used to interpret this result as normal/abnormal. Specimen Source (test code = 2795) LYNDSAY (test code = LYNDSAY) Wool Handler ID - [auto]Wool Handler ID - tech Lab Interpretation (test code = 15617-6) Abnormal [facility] + Reflex to Culture 2023-03-30 08:43:51* Test Item Value Reference Range Interpretation Comme nts Color, UA (test code = 5778-6) Yellow Clarity, UA (test code = 5767-9) Clear Specific [place], UA (test code = 5811-5) 1.033 1.001-1.035 pH, UA (test code = 5803-2) 6.0 5.0-8.0 Protein, UA (test code = 71853-5) 30 mg/dL Negative A Glucose, UA (test code = 365) Negative Negative Ketones, UA (test code = 2514-8) Negative Negative Bilirubin, UA (test code = 61486-8) Negative Negative Blood, UA (test code = 46920-4) Small Negative A Nitrite, UA (test code = 5802-4) Negative Negative Leukocytes, UA (test code = 5799-2) Negative Negative Urobilinogen, UA (test code = 57651-5) 0.2 0.2-1.0 RBC, UA (test code = 31145-3) 51 See_Comment [Automated message] The system which [...] Occasional Squam Epithel, UA (test code = 78858-2) See_Comment [Automated message] The system which generated this result transmitted reference range: /HPF. The reference range was not used to interpret this result as normal/abnormal. Specimen Source (test code = 2795) LYNDSAY (test code = LYNDSAY) Wool Handler ID - [auto]Wool Handler ID - tech Lab Interpretation (test code = 92787-7) [facility]normal [facility] + Reflex to Culture 2023-03-30 08:43:51* Test Item Value Reference Range Interpretation Comme nts Color, UA (test code = 5778-6) Yellow Clarity, UA (test code = 5767-9) Clear Specific [place], UA (test code = 5811-5) 1.033 1.001-1.035 pH, UA (test code = 5803-2) 6.0 5.0-8.0 Protein, UA (test code = 23377-1) 30 mg/dL Negative A Glucose, UA (test code = 365) Negative Negative Ketones, UA (test code = 2514-8) Negative Negative Bilirubin, UA (test code = 03206-1) Negative Negative Blood, UA (test code = 61424-9) Small Negative A Nitrite, UA (test code = 5802-4) Negative Negative Leukocytes, UA (test code = 5799-2) Negative Negative Urobilinogen, UA (test code = 29156-4) 0.2 0.2-1.0 RBC, UA (test code = 32457-5) 51 See_Comment [Automated message] The system which [...] Occasional Squam Epithel, UA (test code = 41799-2) See_Comment [Automated message] The system which generated this result transmitted reference range: /HPF. The reference range was not used to interpret this result as normal/abnormal. Specimen Source (test code = 2795) LYNDSAY (test code = LYNDSAY) Wool Handler ID - [auto]Wool Handler ID - tech Lab Interpretation (test code = 05774-6) [facility]30 08:43:51* Test Item Value Reference Range Interpretation Comme nts Color, UA (test code = 5778-6) Yellow Clarity, UA (test code = 5767-9) Clear Specific [place], UA (test code = 5811-5) 1.033 1.001-1.035 pH, UA (test code = 5803-2) 6.0 5.0-8.0 Protein, UA (test code = 79415-5) 30 mg/dL Negative A Glucose, UA (test code = 365) Negative Negative Ketones, UA (test code = 2514-8) Negative Negative Bilirubin, UA (test code = 13309-7) Negative Negative Blood, UA (test code = 86826-4) Small Negative A Nitrite, UA (test code = 5802-4) Negative Negative Leukocytes, UA (test code = 5799-2) Negative Negative Urobilinogen, UA (test code = 82888-9) 0.2 0.2-1.0 RBC, UA (test code = 33999-6) 51 See_Comment [Automated message] The system which [...] Occasional Squam Epithel, UA (test code = 67824-8) See_Comment [Automated message] The system which generated this result transmitted reference range: /HPF. The reference range was not used to interpret this result as normal/abnormal. Specimen Source (test code = 2795) LYNDSAY (test code = LYNDSAY) Wool Handler ID - [auto]Wool Handler ID - tech Lab Interpretation (test code = 77969-9) [facility] 2023-03-30 08:43:51* Test Item Value Reference Range Interpretation Comme nts Color, UA (test code = 5778-6) Yellow Clarity, UA (test code = 5767-9) Clear Specific [place], UA (test code = 5811-5) 1.033 1.001-1.035 pH, UA (test code = 5803-2) 6.0 5.0-8.0 Protein, UA (test code = 30886-6) 30 mg/dL Negative A Glucose, UA (test code = 365) Negative Negative Ketones, UA (test code = 2514-8) Negative Negative Bilirubin, UA (test code = 64421-5) Negative Negative Blood, UA (test code = 99928-2) Small Negative A Nitrite, UA (test code = 5802-4) Negative Negative Leukocytes, UA (test code = 5799-2) Negative Negative Urobilinogen, UA (test code = 35961-8) 0.2 0.2-1.0 RBC, UA (test code = 67476-0) 51 See_Comment [Automated message] The system which [...] Occasional Squam Epithel, UA (test code = 10306-3) See_Comment [Automated message] The system which generated this result transmitted reference range: /HPF. The reference range was not used to interpret this result as normal/abnormal. Specimen Source (test code = 2795) LYNDSAY (test code = LYNDSAY) Wool Handler ID - [auto]Wool Handler ID - Iotelligent Lab Interpretation (test code = 87005-8) [facility] Culture 2023-03-30 08:43:51* Test Item Value Reference Range Interpretation Comme nts Color, UA (test code = 5778-6) Yellow Clarity, UA (test code = 5767-9) Clear Specific [place], UA (test code = 5811-5) 1.033 1.001-1.035 pH, UA (test code = 5803-2) 6.0 5.0-8.0 Protein, UA (test code = 34928-6) 30 mg/dL Negative A Glucose, UA (test code = 365) Negative Negative Ketones, UA (test code = 2514-8) Negative Negative Bilirubin, UA (test code = 83348-4) Negative Negative Blood, UA (test code = 43727-7) Small Negative A Nitrite, UA (test code = 5802-4) Negative Negative Leukocytes, UA (test code = 5799-2) Negative Negative Urobilinogen, UA (test code = 80913-5) 0.2 0.2-1.0 RBC, UA (test code = 88563-6) 51 See_Comment [Automated message] The system which [...] Occasional Squam Epithel, UA (test code = 26255-4) See_Comment [Automated message] The system which generated this result transmitted reference range: /HPF. The reference range was not used to interpret this result as normal/abnormal. Specimen Source (test code = 2795) LYNDSAY (test code = LYNDSAY) Wool Handler ID - [auto]Wool Handler ID - tech Lab Interpretation (test code = 71559-8) [facility] Culture 2023-03-30 08:43:51* Test Item Value Reference Range Interpretation Comme nts Color, UA (test code = 5778-6) Yellow Clarity, UA (test code = 5767-9) Clear Specific [place], UA (test code = 5811-5) 1.033 1.001-1.035 pH, UA (test code = 5803-2) 6.0 5.0-8.0 Protein, UA (test code = 93324-1) 30 mg/dL Negative A Glucose, UA (test code = 365) Negative Negative Ketones, UA (test code = 2514-8) Negative Negative Bilirubin, UA (test code = 62637-3) Negative Negative Blood, UA (test code = 83480-4) Small Negative A Nitrite, UA (test code = 5802-4) Negative Negative Leukocytes, UA (test code = 5799-2) Negative Negative Urobilinogen, UA (test code = 05278-3) 0.2 0.2-1.0 RBC, UA (test code = 50352-7) 51 See_Comment [Automated message] The system which [...] Occasional Squam Epithel, UA (test code = 01749-0) See_Comment [Automated message] The system which generated this result transmitted reference range: /HPF. The reference range was not used to interpret this result as normal/abnormal. Specimen Source (test code = 2795) LYNDSAY (test code = LYNDSAY) Wool Handler ID - [auto]Wool Handler ID - tech Lab Interpretation (test code = 28993-4) [facility]normal [facility] Reflex [facility] Culture 2023-03-30 08:43:51* Test Item Value Reference Range Interpretation Comme nts Color, UA (test code = 5778-6) Yellow Clarity, UA (test code = 5767-9) Clear Specific [place], UA (test code = 5811-5) 1.033 1.001-1.035 pH, UA (test code = 5803-2) 6.0 5.0-8.0 Protein, UA (test code = 84415-1) 30 mg/dL Negative A Glucose, UA (test code = 365) Negative Negative Ketones, UA (test code = 2514-8) Negative Negative Bilirubin, UA (test code = 28481-4) Negative Negative Blood, UA (test code = 42109-7) Small Negative A Nitrite, UA (test code = 5802-4) Negative Negative Leukocytes, UA (test code = 5799-2) Negative Negative Urobilinogen, UA (test code = 23696-5) 0.2 0.2-1.0 RBC, UA (test code = 58682-2) 51 See_Comment [Automated message] The system which [...] Occasional Squam Epithel, UA (test code = 36276-0) See_Comment [Automated message] The system which generated this result transmitted reference range: /HPF. The reference range was not used to interpret this result as normal/abnormal. Specimen Source (test code = 2795) LYNDSAY (test code = LYNDSAY) Wool Handler ID - [auto]Wool Handler ID - tech Lab Interpretation (test code = 95390-3) [facility] Culture 2023-03-30 08:43:51* Test Item Value Reference Range Interpretation Comme nts Color, UA (test code = 5778-6) Yellow Clarity, UA (test code = 5767-9) Clear Specific [place], UA (test code = 5811-5) 1.033 1.001-1.035 pH, UA (test code = 5803-2) 6.0 5.0-8.0 Protein, UA (test code = 58077-7) 30 mg/dL Negative A Glucose, UA (test code = 365) Negative Negative Ketones, UA (test code = 2514-8) Negative Negative Bilirubin, UA (test code = 81761-0) Negative Negative Blood, UA (test code = 18597-7) Small Negative A Nitrite, UA (test code = 5802-4) Negative Negative Leukocytes, UA (test code = 5799-2) Negative Negative Urobilinogen, UA (test code = 91774-2) 0.2 0.2-1.0 RBC, UA (test code = 52259-8) 51 See_Comment [Automated message] The system which [...] Occasional Squam Epithel, UA (test code = 63293-4) See_Comment [Automated message] The system which generated this result transmitted reference range: /HPF. The reference range was not used to interpret this result as normal/abnormal. Specimen Source (test code = 2795) LYNDSAY (test code = LYNDSAY) Wool Handler ID - [auto]Wool Handler ID - tech Lab Interpretation (test code = 09645-4) [facility] Reflex [facility] Culture 2023-03-30 08:43:51* Test Item Value Reference Range Interpretation Comme nts Color, UA (test code = 5778-6) Yellow Clarity, UA (test code = 5767-9) Clear Specific [place], UA (test code = 5811-5) 1.033 1.001-1.035 pH, UA (test code = 5803-2) 6.0 5.0-8.0 Protein, UA (test code = 91125-6) 30 mg/dL Negative A Glucose, UA (test code = 365) Negative Negative Ketones, UA (test code = 2514-8) Negative Negative Bilirubin, UA (test code = 64380-6) Negative Negative Blood, UA (test code = 30805-3) Small Negative A Nitrite, UA (test code = 5802-4) Negative Negative Leukocytes, UA (test code = 5799-2) Negative Negative Urobilinogen, UA (test code = 41332-3) 0.2 0.2-1.0 RBC, UA (test code = 16964-2) 51 See_Comment [Automated message] The system which [...] Occasional Squam Epithel, UA (test code = 23522-2) See_Comment [Automated message] The system which generated this result transmitted reference range: /HPF. The reference range was not used to interpret this result as normal/abnormal. Specimen Source (test code = 2795) LYNDSAY (test code = LYNDSAY) Wool Handler ID - [auto]Wool Handler ID - tech Lab Interpretation (test code = 03343-7) [facility] Culture 2023-03-30 08:43:51* Test Item Value Reference Range Interpretation Comme nts Color, UA (test code = 5778-6) Yellow Clarity, UA (test code = 5767-9) Clear Specific [place], UA (test code = 5811-5) 1.033 1.001-1.035 pH, UA (test code = 5803-2) 6.0 5.0-8.0 Protein, UA (test code = 49918-4) 30 mg/dL Negative A Glucose, UA (test code = 365) Negative Negative Ketones, UA (test code = 2514-8) Negative Negative Bilirubin, UA (test code = 82130-8) Negative Negative Blood, UA (test code = 04169-5) Small Negative A Nitrite, UA (test code = 5802-4) Negative Negative Leukocytes, UA (test code = 5799-2) Negative Negative Urobilinogen, UA (test code = 34179-3) 0.2 0.2-1.0 RBC, UA (test code = 70792-1) 51 See_Comment [Automated message] The system which [...] Occasional Squam Epithel, UA (test code = 63103-1) See_Comment [Automated message] The system which generated this result transmitted reference range: /HPF. The reference range was not used to interpret this result as normal/abnormal. Specimen Source (test code = 2795) LYNDSAY (test code = LYNDSAY) Wool Handler ID - [auto]Wool Handler ID - tech Lab Interpretation (test code = 77623-5) [facility] Ref[facility] Culture 2023-03-30 08:43:51* Test Item Value Reference Range Interpretation Comme nts Color, UA (test code = 5778-6) Yellow Clarity, UA (test code = 5767-9) Clear Specific [place], UA (test code = 5811-5) 1.033 1.001-1.035 pH, UA (test code = 5803-2) 6.0 5.0-8.0 Protein, UA (test code = 12534-7) 30 mg/dL Negative A Glucose, UA (test code = 365) Negative Negative Ketones, UA (test code = 2514-8) Negative Negative Bilirubin, UA (test code = 51307-1) Negative Negative Blood, UA (test code = 97428-1) Small Negative A Nitrite, UA (test code = 5802-4) Negative Negative Leukocytes, UA (test code = 5799-2) Negative Negative Urobilinogen, UA (test code = 21213-5) 0.2 0.2-1.0 RBC, UA (test code = 04368-0) 51 See_Comment [Automated message] The system which [...] Occasional Squam Epithel, UA (test code = 00452-8) See_Comment [Automated message] The system which generated this result transmitted reference range: /HPF. The reference range was not used to interpret this result as normal/abnormal. Specimen Source (test code = 2795) LYNDSAY (test code = LYNDSAY) Wool Handler ID - [auto]Wool Handler ID - tech Lab Interpretation (test code = 05326-8) [facility]normal [facility] Reflex [facility] Culture 2023-03-30 08:43:51* Test Item Value Reference Range Interpretation Comme nts Color, UA (test code = 5778-6) Yellow Clarity, UA (test code = 5767-9) Clear Specific [place], UA (test code = 5811-5) 1.033 1.001-1.035 pH, UA (test code = 5803-2) 6.0 5.0-8.0 Protein, UA (test code = 30318-5) 30 mg/dL Negative A Glucose, UA (test code = 365) Negative Negative Ketones, UA (test code = 2514-8) Negative Negative Bilirubin, UA (test code = 46174-3) Negative Negative Blood, UA (test code = 52463-2) Small Negative A Nitrite, UA (test code = 5802-4) Negative Negative Leukocytes, UA (test code = 5799-2) Negative Negative Urobilinogen, UA (test code = 04421-7) 0.2 0.2-1.0 RBC, UA (test code = 75225-2) 51 See_Comment [Automated message] The system which [...] Occasional Squam Epithel, UA (test code = 74290-5) See_Comment [Automated message] The system which generated this result transmitted reference range: /HPF. The reference range was not used to interpret this result as normal/abnormal. Specimen Source (test code = 2795) LYNDSAY (test code = LYNDSAY) Wool Handler ID - [auto]Wool Handler ID - tech Lab Interpretation (test code = 59956-7) [facility] Ref[facility] Culture 2023-03-30 08:43:51* Test Item Value Reference Range Interpretation Comme nts Color, UA (test code = 5778-6) Yellow Clarity, UA (test code = 5767-9) Clear Specific [place], UA (test code = 5811-5) 1.033 1.001-1.035 pH, UA (test code = 5803-2) 6.0 5.0-8.0 Protein, UA (test code = 18539-6) 30 mg/dL Negative A Glucose, UA (test code = 365) Negative Negative Ketones, UA (test code = 2514-8) Negative Negative Bilirubin, UA (test code = 20129-0) Negative Negative Blood, UA (test code = 97619-6) Small Negative A Nitrite, UA (test code = 5802-4) Negative Negative Leukocytes, UA (test code = 5799-2) Negative Negative Urobilinogen, UA (test code = 71356-1) 0.2 0.2-1.0 RBC, UA (test code = 18485-6) 51 See_Comment [Automated message] The system which [...] Occasional Squam Epithel, UA (test code = 03297-1) See_Comment [Automated message] The system which generated this result transmitted reference range: /HPF. The reference range was not used to interpret this result as normal/abnormal. Specimen Source (test code = 2795) LYNDSAY (test code = LYNDSAY) Wool Handler ID - [auto]Wool Handler ID - tech Lab Interpretation (test code = 38664-1) [facility] [id number] 08:43:51 * Test Item Value Reference Range [...] < /HPF SOURCE(BEAKER) (test code = 2795) Wool Handler ID - [auto]Wool Handler ID - techCOMPREHENSIVE METABOLIC [id number] 04:37:29* Test Item Value Reference Range Interpretation [...] GFR is not applicable for dialysis patients Wool Handler ID - MATT BPT/[id number] 04:30:17* Test Item Value Reference Range Interpretation Comme nts PROTIME (BEAKER) (test code = 759) 13.8 seconds 11.9-14.2 INR (BEAKER) (test code = 370) 1.13 See_Comment [Automated Intelleflex] The system which generated this result transmitted [...] code = 413) 0 /100 WBC 0-0 [id number] 00:00:00Ordered by an unspecified provider.[facility]XHOXUMZ9914-12-24 00:00:00Ordered by an unspecified provider. [facility]-ZCLGCJW1023-00-32 00:00:00Ordered by an unspecified provider.[facility]UM2023-[facility]-25 17:14:06* Test Item Value Reference Range Interpretation Comme nts MAGNESIUM (test code = 5116998108) 1.9 mg/dL 1.7-2.4 Lab Interpretation (test cod e = 62584-3) Normal [facility] AmericaCOMP. METABOLIC PANEL (83416)2022-12-11 15:16:25* Test Item Value Reference Range Interpretation Comme nts NA (test code = 7409757758) 139 mmol/L 135-145 K (test code = 8360119015) 3.5 mmol/L 3.5-5.0 CL (test code = 7810281323) 107 mmol/L 98-108 CO2 TOTAL (test code = 5547006583) 24 mmol/L 23-31 AGAP (test code = 0815193011) 8 2-16 BUN (test code = 6392730853) 9 mg/dL 7-23 GLUCOSE (test code = 8431216673) 129 mg/dL 70-110 H CREATININE (test code = 4115984505) 0.68 mg/dL 0.50-1.04 TOTAL BILI (test code = 6191250905) 0.5 mg/dL 0.1-1.1 CALCIUM (test code = 2196891551) 8.9 mg/dL 8.6-10.6 T PROTEIN (test code = 8290966103) 6.3 g/dL 6.3-8.2 ALBUMIN (test code = 2954918036) 3.8 g/dL 3.5-5.0 ALK PHOS (test code = 1246435161) 87 U/L 34-122 ALTv (test code = 1742-6) 24 U/L 5-35 AST(SGOT) (test code = 1582628959) 21 U/L 13-40 eGFR (test code = 8029466002) 91.6 mL/min/1.73m2 LYNDSAY (test code = LYNDSAY) [...] imaging tests). Lab Interpretation (test code = 69243-6) Abnormal [facility] AmericaTROPONIN [id number] 15:10:45* Test Item Value Reference Range Interpretation Comme nts TROPONIN I (test code = 4112475502) 0.015 ng/mL <=0.034 LYNDSAY (test code = [...] of biotin. Lab Interpretation (test code = 53437-3) Normal [facility] AmericaN-TERMINAL [id number] 15:07:48* Test Item Value Reference Range Interpretation Comme nts NT-proBNP (test code = 0879507763) 1460 pg/mL <=125 H LYNDSAY (test code = LYNDSAY) Biotin has been reported to cause a negative bias, interpret results relative to patient's use of biotin. Lab Interpretation (test code = 54437-7) Abnormal [facility] AmericaD-SRTPG5839-76-28 14:45:24* Test Item Value Reference Range Interpretation Comments D-DIMER (test code = 4062266335) 0.99 See_Comment H [Automated message] The system [...] a diagnosis. Lab Interpretation (test code = 72340-4) Abnormal [facility] AmericaCBC WITH [id number] 14:14:48* Test Item Value Reference Range Interpretation Comme nts WBC (test code = 6690-2) 7.86 See_Comment [Automated messa ge] The system which [...] g/dL 31.6-35.1 L RDW-SD (test code = 84920-8) 47.8 fL 39.0-49.9 RDW-CV (test code = 788-0) 16.9 % 12.0-15.5 H PLT (test code = 777-3) 507 See_Comment H [Automated messa ge] The system which generated this result transmitted reference range: 166 - 358 10*3/?L. The reference range was not used to interpret this result as normal/abnormal. MPV (test code = 49001-3) 8.2 fL 9.5-12.9 L NRBC/100 WBC (test code = 7784766928) 0.0 See_Comment [Automated Quartzy ssage] The system which generated this result transmitted reference range: 0.0 - 10.0 /100 WBCs. The reference range was not used to interpret this result as normal/abnormal. NRBC x10^3 (test code = 3489524502) See_Comment [Automated messa ge] The system which generated this result transmitted reference range: 10*3/?L. The reference range was not used to interpret this result as normal/abnormal. GRAN MAT (NEUT) % (test code = 770-8) 64.5 % IMM GRAN % (test code = 9395197199) 0.30 % LYMPH % (test code = 736-9) 25.6 % MONO % (test code = 5905-5) 7.5 % EOS % (test code = 713-8) 1.0 % BASO % (test code = 706-2) 1.1 % GRAN MAT x10^3(ANC) (test code = 6861676391) 5.07 10*3/uL 1.88-7.09 IMM GRAN x10^3 (test code = 0255682106) 0.00-0.06 LYMPH x10^3 (test code = 731-0) 2.01 10*3/uL 1.32-3.29 MONO x10^3 (test code = 742-7) 0.59 10*3/uL 0.33-0.92 EOS x10^3 (test code = 711-2) 0.08 10*3/uL 0.03-0.39 BASO x10^3 (test code = 704-7) 0.09 10*3/uL 0.01-0.07 H Lab Interpretation (test code = 36035-6) Abnormal [facility] AmericaRPR2023-01-17 13:17:22* Test Item Value Reference Range Interpretation Comme [facility] RPR SCREEN (Eduquia) (test co de = 420) Nonreactive Nonreactive HEMOGLOBIN [id number] 10:39:49* Test Item Value Reference Range Interpretation Comme [facility] HEMOGLOBIN A1C ELECTROPHORESIS (Eduquia) (test code = 3811) 5.8 % See_Comment [...] 5.7- 6.4% indicates increased risk for diabetes (prediabetes)."Wool Handler ID - ADM VITAMIN [id number] 22:48:27* Test Item Value Reference Range Interpretation Comme [facility] VITAMIN B12 (Eduquia) (test c ode = 774) 227 pg/mL 213-816 Wool Handler ID - MARCOTSH/FREE T4 IF [id number] 22:08:28* Test Item Value Reference Range Interpretation Comme nts THYROID STIMULATING HORMONE (BEAKER) (test code = 772) 3.309 uIU/mL 0.350-4.940 Wool Handler ID - JSHIV-1 ANTIGEN WITH HIV-1/2 [id number] 22:08:28* Test Item Value Reference Range Interpretation Comme nts HIV-1 ANTIGEN WITH HIV 1\\T\\2 ANTIBODY (2) (BEAKER) (test code = 2586) Nonreactive Nonreactive Wool Handler ID - JSC-REACTIVE [id number] 21:49:44* Test Item Value Reference Range Interpretation Comme nts C-REACTIVE PROTEIN (BEAKER) (test code = 676) 0.35 mg/dL 0.00-0.50 Wool Handler ID - JSCOMPREHENSIVE METABOLIC [id number] 21:49:43* Test Item Value Reference Range Interpretation [...] GFR is not applicable for dialysis patients Wool Handler ID - JSLIPID [id number] 21:49:43* Test Item Value Reference Range Interpretation [...] Borderline 130-159 High 160-189 Very High >=190 Wool Handler ID - JSCBC W/PLT COUNT & AUTO [id number] 21:34:03* Test Item Value Reference Range Interpretation [...] Interpretation Comme nts Height (test code = 2055884748) in Weight (test code = 8457682306) lbs Systolic BP (test code = 4438501653) mmHg Diastolic BP (test code = 3913613323) mmHg Heart Rate (test code = 1839951786) bpm BSA (test code = 3530466293) 2.00 m2 Ao root diam (test code = 5175232683) 3.20 cm Aortic root (test code = 9316370082) 3.2 cm Ao root annulus (test code = 9359250482) 3.2 cm LVOT diameter (test code = 6624582217) 1.99 cm LVOT area (test code = 5045485844) 3.10 cm2 LVIDD (test code = 7336426976) 5.10 cm Left Ventricular End Diastolic Volume by Teichholz Method (test code = 0524111) 123.0 mL IVS (test code = 0819324725) 1.34 cm Interventricular Septum Diastolic Thickness by 2D (test code = 9463494) 1.34 cm LVPWD (test code = 0013077492) 1.34 cm PW (test code = 2088299978) 1.34 cm 0.6-1.1 EF(Teich) (test code = 5179995983) 41.80 % LVIDS (test code = 3870219622) 4.00 cm Left Ventricular End Systolic Volume by Teichholz Method (test code = 9338792) 71.5 mL FS (test code = 5004483097) 21 % EF - 2D (test code = 09766436) 41.80 % LA size (test code = 1691177757) 4.6 cm Pulmonic Regurgitant End Max Velocity (test code = 0687941196) 119.4 cm/s LAV(MOD-sp4) (test code = 7127007387) 95.00 mL E wave decelartion time (test code = 3930893861) 0.15 s MV stenosis pressure 1/2 time (test code = 5747749900) 45.6 ms MV Peak A Evette (test code = 1949788182) 123.8 cm/s MV Peak E Evette (test code = 9190979462) 109.7 cm/s E/A ratio (test code = 0279195216) ratio MR max PG (test code = 3341329988) 87.20 mm[Hg] MR max evette (test code = 1810823969) 466.90 cm/s Mr max evette (test code = 4968782000) 466.9 m/s MV Prop V (test code = 8146217820) 51.00 cm/s MV E/e' septal (test code = 9624626729) 8.1 cm/s Tapse (test code = 7068006373) 2.21 cm LVOT stroke volume (test code = 8923324205) 49.80 cm3 LVOT peak evette (test code = 0075565606) 89.1 cm/s LVOT mn grad (test code = 5049971058) mmHg AV LVOT peak gradient (test code = 4121405987) mmHg LVOT peak VTI (test code = 8912807463) 16.0 cm LV V1 mean (test code = 4848156732) 64.30 cm/s Aortic valve mean velocity (test code = 4390312484) 133.8 cm/s Ao peak evette (test code = 3542781883) 175.3 cm/s Ao VTI (test code = 9067127939) 32.2 cm AV area by cont VTI (test code = 4889641136) 1.6 cm2 AV area peak evette (test code = 1040858202) 1.6 cm2 Ao max PG (test code = 2165563544) 12.30 mm[Hg] AV peak gradient (test code = 3108754596) mmHg AV valve area (test code = 8227594652) 1.55 cm2 AV mean gradient (test code = 8544688926) mmHg AV regurgitation pressure 1/2 time (test code = 5211748822) 358.5 ms AI dec slope (test code = 4783584501) 364.20 cm/s2 AI max evette (test code = 3790228582) 445.80 cm/s AI max PG (test code = 2850503444) 79.50 mm[Hg] Radiology Study observation (narrative) (test code = 50904-6) LYNDSAY (test code = LYNDSAY) ?Left?Ventricle: Left [...] mL of Lumason ultrasound enhancing agent used. [facility] AmericaPOCT GLUCOSE (AUTOMATED)2022-08-01 10:43:32* Test Item Value Reference Range Interpretation [facility] POCT GLU (test code = 8217870799) 148 mg/dL 70-110 H Lab Interpretation (test cod e = 99415-8) Abnormal [facility] AmericaACTIVATED PARTIAL THRMPLAS [id number] 18:39:45* Test Item Value Reference Range [facility]ation [facility] (test code = 3173-2) See_Comment [Automated message] The system which generated this result transmitted reference range: 23 - 38 Seconds. The reference range was not used to interpret this result as normal/abnormal. LYNDSAY (test code = LYNDSAY) The [facility] patient population mean normal value for aPTT is 30 seconds. Lab Interpretation (test code = 90384-3) Normal [facility] AmericaPROTHROMBIN TIME / [id number] 18:37:42* Test Item Value Reference Range Interpretation [facility] PR[facility] PATIENT (test code = 5964-2) See_Comment [Automated Intelleflex] The system which generated this result transmitted reference range: 12.0 - 14.7 Seconds. The reference range was not used to interpret this result as normal/abnormal. INR (test code = 6301-6) Normal INR <1.1; Warfarin Therapeutic range 2.0 to 3.0 or 2.5 to 3.5, depending upon the indications. Lab Interpretation (test code = 29733-5) [facility] AmericaTROPONIN [id number] 18:32:01* Test Item Value Reference Range Interpretation Comments TROPONIN I (test code = 5995392030) 0.019 ng/mL See_Comment [Automated message] The system [...] of biotin. Lab Interpretation (test code = 84737-1) Normal [facility] AmericaN-TERMINAL THL-[id number] 18:29:01* Test Item Value Reference Range Interpretation Comme nts NT-proBNP (test code = 1603457701) 2770 pg/mL See_Comment H [Automated message] The system which generated this result transmitted reference range: <=125. The reference range was not used to interpret this result as normal/abnormal. LYNDSAY (test code = LYNDSAY) Biotin has been reported to cause a negative bias, interpret results relative to patient's use of biotin. Lab Interpretation (test code = 65282-5) Abnormal [facility] AmericaCOMP. METABOLIC PANEL (11464)2022-07-31 18:21:42* Test Item Value Reference Range Interpretation Comme nts NA (test code = 5980341395) 136 mmol/L 135-145 K (test code = 4886497336) 4.6 mmol/L 3.5-5.0 CL (test code = 4028691977) 104 mmol/L 98-108 CO2 TOTAL (test code = 5289547686) 26 mmol/L 23-31 AGAP (test code = 2437266473) 2-16 BUN (test code = 0511869897) 9 mg/dL 7-23 GLUCOSE (test code = 2022149576) 97 mg/dL 70-110 CREATININE (test code = 1543129535) 0.64 mg/dL 0.50-1.04 TOTAL BILI (test code = 1393513832) 0.5 mg/dL 0.1-1.1 CALCIUM (test code = 9322652259) 8.2 mg/dL 8.6-10.6 L T PROTEIN (test code = 0852114696) 6.5 g/dL 6.3-8.2 ALBUMIN (test code = 0709521190) 3.9 g/dL 3.5-5.0 ALK PHOS (test code = 8851091324) 93 U/L 34-122 ALTv (test code = 1742-6) 18 U/L 5-35 AST(SGOT) (test code = 5592787114) 19 U/L 13-40 eGFR (test code = 3581584319) mL/min/1.73m2 LYNDSAY (test code = LYNDSAY) Association [...] imaging tests). Lab Interpretation (test code = 57237-5) [facility] AmericaLIPASE2023-01-12 18:21:01* Test Item Value Reference Range Interpretation Comme nts LIPASE (test code = 0261311120) 54 U/L 0-220 Lab Interpretation (test cod e = 66697-7) Normal [facility] AmericaCB WITH [id number] 18:07:00* Test Item Value Reference Range Interpretation [...] g/dL 31.6-35.1 L RDW-SD (test code = 38805-0) 53.1 fL 39.0-49.9 H RDW-CV (test code = 788-0) 17.0 % 12.0-15.5 H PLT (test code = 777-3) See_Comment H [Automated messa ge] The system which generated this result transmitted reference range: 166 - 358 10*3/?L. The reference range was not used to interpret this result as normal/abnormal. MPV (test code = 58016-1) 8.2 fL 9.5-12.9 L NRBC/100 WBC (test code = 6192608836) See_Comment [Automated me ssage] The system which generated this result transmitted reference range: 0.0 - 10.0 /100 WBCs. The reference range was not used to interpret this result as normal/abnormal. NRBC x10^3 (test code = 4609406719) See_Comment [Automated messa ge] The system which generated this result transmitted reference range: 10*3/?L. The reference range was not used to interpret this result as normal/abnormal. GRAN MAT (NEUT) % (test code = 770-8) 64.0 % IMM GRAN % (test code = 1000403459) 0.40 % LYMPH % (test code = 736-9) 27.3 % MONO % (test code = 5905-5) 6.5 % EOS % (test code = 713-8) 1.1 % BASO % (test code = 706-2) 0.7 % GRAN MAT x10^3(ANC) (test code = 5157581067) 5.46 10*3/uL 1.88-7.09 IMM GRAN x10^3 (test code = 6170344883) 0.03 10*3/uL 0.00-0.06 LYMPH x10^3 (test code = 731-0) 2.32 10*3/uL 1.32-3.29 MONO x10^3 (test code = 742-7) 0.55 10*3/uL 0.33-0.92 EOS x10^3 (test code = 711-2) 0.09 10*3/uL 0.03-0.39 BASO x10^3 (test code = 704-7) 0.06 10*3/uL 0.01-0.07 Lab Interpretation (test code = 92337-4) Abnormal [facility] METABOLIC PANEL (NA, K, CL, CO2, GLUCOSE, BUN, CREATININE, CA)2022-05-08 06:37:01* Test Item Value Reference Range Interpretation Comme nts NA (test code = 3199833487) 137 mmol/L 135-145 K (test code = 4111416425) 3.8 mmol/L 3.5-5 CL (test code = 4079890146) 103 mmol/L 98-108 CO2 TOTAL (test code = 3795189212) 24 mmol/L 23-31 AGAP (test code = 2981446089) 2-16 BUN (test code = 0044032646) 13 mg/dL 7-23 GLUCOSE (test code = 1079004953) 90 mg/dL 70-110 CREATININE (test code = 2459122618) 0.69 mg/dL 0.5-1.04 CALCIUM (test code = 6700975547) 8.5 mg/dL 8.6-10.6 L eGFR (test code = 6435356025) mL/min/1.73m2 LYNDSAY (test code = LYNDSAY) Association [...] imaging tests). Lab Interpretation (test code = 71044-0) [facility]normal [facility] AmericaMAGNESIUM2022-10-20 06:37:01* Test Item Value Reference Range Interpretation Comme nts MAGNESIUM (test code = 1943729895) 2.1 mg/dL 1.7-2.4 Lab Interpretation (test cod e = 70506-4) Normal [facility] AmericaPHOSPHORUS2022-10-20 06:37:01* Test Item Value Reference Range Interpretation Comme nts PHOSPHORUS (test code = 9955908503) 4.7 mg/dL 2.5-5 Lab Interpretation (test cod e = 86795-0) Normal [facility] AmericaCBC WITH [id number] 06:11:54* Test Item Value Reference Range Interpretation [...] 32.4 g/dL 31.6-35.1 RDW-SD (test code = 39843-5) 51.0 fL 39-49.9 H RDW-CV (test code = 788-0) 16.5 % 12-15.5 H PLT (test code = 777-3) See_Comment H [Automated messa ge] The system which generated this result transmitted reference range: 166 - 358 10*3/?L. The reference range was not used to interpret this result as normal/abnormal. MPV (test code = 65722-7) 8.3 fL 9.5-12.9 L NRBC/100 WBC (test code = 7398699623) See_Comment [Automated Quartzy ssage] The system which generated this result transmitted reference range: 0.0 - 10.0 /100 WBCs. The reference range was not used to interpret this result as normal/abnormal. NRBC x10^3 (test code = 1936381374) See_Comment [Automated messa ge] The system which generated this result transmitted reference range: 10*3/?L. The reference range was not used to interpret this result as normal/abnormal. GRAN MAT (NEUT) % (test code = 770-8) 64.5 % IMM GRAN % (test code = 3901555800) 0.50 % LYMPH % (test code = 736-9) 27.1 % MONO % (test code = 5905-5) 6.6 % EOS % (test code = 713-8) 0.6 % BASO % (test code = 706-2) 0.7 % GRAN MAT x10^3(ANC) (test code = 0261164947) 5.28 10*3/uL 1.88-7.09 IMM GRAN x10^3 (test code = 8475313942) 0.04 10*3/uL 0-0.06 LYMPH x10^3 (test code = 731-0) 2.22 10*3/uL 1.32-3.29 MONO x10^3 (test code = 742-7) 0.54 10*3/uL 0.33-0.92 EOS x10^3 (test code = 711-2) 0.05 10*3/uL 0.03-0.39 BASO x10^3 (test code = 704-7) 0.06 10*3/uL 0.01-0.07 Lab Interpretation (test code = 84374-2) Abnormal [facility] AmericaPOCT GLUCOSE (AUTOMATED)2022-05-07 01:18:10* Test Item Value Reference Range Interpretation Comme nts POCT GLU (test code = 3506109079) 120 mg/dL 70-110 H Lab Interpretation (test cod e = 43520-7) Abnormal [facility] AmericaType and Screen - ONCE Nesxqmc5705-01-26 05:46:35* Test Item Value Reference Range Interpretation Comme nts ABO & RH (test code = 20) O POSITIVE Performed at [facility] B Laboratory Services - [facility] Blood [address] [address] Free: [phone] No. [id number] IAT (test code = 1185) Negative Performed at [facility] B Laboratory Services - [facility] Blood [address] [address]Pf[address] Free: [phone] No. [id number] [facility] METABOLIC PANEL (NA, K, CL, CO2, GLUCOSE, BUN, CREATININE, CA)2022-05-05 08:22:57* Test Item Value Reference Range Interpretation Comme nts NA (test code = 3084070866) 136 mmol/L 135-145 K (test code = 7040601514) 4.9 mmol/L 3.5-5 CL (test code = 2646764314) 108 mmol/L 98-108 CO2 TOTAL (test code = 4867162734) 22 mmol/L 23-31 L AGAP (test code = 3129170800) 2-16 BUN (test code = 8885937645) 12 mg/dL 7-23 GLUCOSE (test code = 8357207373) 155 mg/dL 70-110 H CREATININE (test code = 8677761103) 0.63 mg/dL 0.5-1.04 CALCIUM (test code = 0335118005) 8.4 mg/dL 8.6-10.6 L eGFR (test code = 4438585969) mL/min/1.73m2 LYNDSAY (test code = LYNDSAY) Association [...] imaging tests). Lab Interpretation (test code = 49394-3) Abnormal [facility] AmericaPROTHROMBIN TIME / [id number] 08:22:37* Test Item Value Reference Range Interpretation Comme [facility] PROTIME PATIENT (test code = 5964-2) See_Comment [Automated Intelleflex] The system which generated this result transmitted reference range: 10.1 - 12.6 Seconds. The reference range was not used to interpret this result as normal/abnormal. INR (test code = 6301-6) Normal INR <1.1; Warfarin Therapeutic range 2.0 to 3.0 or 2.5 to 3.5, depending upon the indications. Lab Interpretation (test code = 12825-2) Normal [facility] AmericaaPTT2022-10-17 08:22:37* Test Item Value Reference Range Interpretation Comme [facility] APTT Patient (test code = 3173-2) See_Comment [Automated Intelleflex] The system which generated this result transmitted reference range: 26 - 36 Seconds. The reference range was not used to interpret this result as normal/abnormal. Lab Interpretation (test code = 48886-0) Normal [facility] AmericaFIBRINOGEN2022-10-17 08:22:37* Test Item Value Reference Range Interpretation Comme [facility] Fibrinogen (test code = 1910829409) 294 mg/dL 167-453 Lab Interpretation (test cod e = 02224-9) Normal [facility] AmericaCB WITH [id number] 08:15:01* Test Item Value Reference Range Interpretation Comme nts WBC (test code = 6690-2) See_Comment [Automated Intelleflex] The system which generated this result transmitted [...] g/dL 31.6-35.1 L RDW-SD (test code = 27326-0) 52.9 fL 39-49.9 H RDW-CV (test code = 788-0) 16.8 % 12-15.5 H PLT (test code = 777-3) See_Comment H [Automated messa ge] The system which generated this result transmitted reference range: 166 - 358 10*3/?L. The reference range was not used to interpret this result as normal/abnormal. MPV (test code = 82578-7) 8.3 fL 9.5-12.9 L NRBC/100 WBC (test code = 4187111412) See_Comment [Automated Quartzy ssage] The system which generated this result transmitted reference range: 0.0 - 10.0 /100 WBCs. The reference range was not used to interpret this result as normal/abnormal. NRBC x10^3 (test code = 7664388505) See_Comment [Automated messa ge] The system which generated this result transmitted reference range: 10*3/?L. The reference range was not used to interpret this result as normal/abnormal. GRAN MAT (NEUT) % (test code = 770-8) 86.4 % IMM GRAN % (test code = 0613405591) 0.40 % LYMPH % (test code = 736-9) 11.7 % MONO % (test code = 5905-5) 1.1 % EOS % (test code = 713-8) 0.0 % BASO % (test code = 706-2) 0.4 % GRAN MAT x10^3(ANC) (test code = 1105248458) 6.36 10*3/uL 1.88-7.09 IMM GRAN x10^3 (test code = 8209469230) 0.03 10*3/uL 0-0.06 LYMPH x10^3 (test code = 731-0) 0.86 10*3/uL 1.32-3.29 L MONO x10^3 (test code = 742-7) 0.08 10*3/uL 0.33-0.92 L EOS x10^3 (test code = 711-2) 0.03-0.39 L BASO x10^3 (test code = 704-7) 0.03 10*3/uL 0.01-0.07 Lab Interpretation (test code = 16074-8) Abnormal [facility] AmericaVITAMIN D, [id number] 20:14:03* Test Item Value Reference Range Interpretation Comme nts VIT D 25OH (test code = 17240-7) 22 ng/mL 25-80 L LYNDSAY (test code = LYNDSAY) Deficiency: <20 ng/mLInsufficiency: 20-24 ng/mLOptimal: 25-80 ng/mL Lab Interpretation (test code = 95693-7) Abnormal [facility] AmericaBASI METABOLIC PANEL (NA, K, CL, CO2, GLUCOSE, BUN, CREATININE, CA)2022-04-15 11:27:57* Test Item Value Reference Range Interpretation Comme nts NA (test code = 6895579926) 138 mmol/L 135-145 K (test code = 8492075765) 3.9 mmol/L 3.5-5 CL (test code = 8936117355) 106 mmol/L 98-108 CO2 TOTAL (test code = 5395058370) 23 mmol/L 23-31 AGAP (test code = 4264694632) 2-16 BUN (test code = 1205074856) 10 mg/dL 7-23 GLUCOSE (test code = 8942680923) 91 mg/dL 70-110 CREATININE (test code = 8598934101) 0.65 mg/dL 0.5-1.04 CALCIUM (test code = 7249847949) 8.1 mg/dL 8.6-10.6 L eGFR (test code = 2983920265) mL/min/1.73m2 LYNDSAY (test code = LYNDSAY) Association [...] imaging tests). Lab Interpretation (test code = 27574-8) Abnormal [facility] AmericaSTROKE Protocol - Transthoracic echo (TTE) 2022-04-14 22:07:33* Test Item Value Reference Range Interpretation Comme nts Height (test code = 3155070576) in Weight (test code = 9285207463) lbs Systolic BP (test code = 8989787518) mmHg Diastolic BP (test code = 4077257850) mmHg Heart Rate (test code = 2156473806) bpm BSA (test code = 1165188080) 1.94 m2 TASV (test code = 8641786775) 15.5 cm/s LVIDD (test code = 6607551710) 6.00 cm Left Ventricular End Diastolic Volume by Teichholz Method (test code = 9361385) 183.0 mL IVS (test code = 0081471393) 1.09 cm Interventricular Septum Diastolic Thickness by 2D (test code = 8409493) 1.09 cm LVPWD (test code = 4264549996) 0.94 cm PW (test code = 5698353918) 0.94 cm 0.6-1.1 EF(Teich) (test code = 6167584436) 40.30 % LVIDS (test code = 4565742061) 4.80 cm Left Ventricular End Systolic Volume by Teichholz Method (test code = 3712962) 109.2 mL FS (test code = 2512095429) 20 % EF - 2D (test code = 02889917) 40.30 % LVOT diameter (test code = 9817648791) 2.05 cm LVOT area (test code = 4219073121) 3.30 cm2 Ao root diam (test code = 8276107179) 3.10 cm Aortic root (test code = 1311131936) 3.1 cm Ao root annulus (test code = 1914787073) 3.1 cm LA size (test code = 5564144896) 4.2 cm LAV(MOD-sp4) (test code = 3218879811) 64.90 mL MV Peak A Evette (test code = 5844156170) 115.7 cm/s E wave decelartion time (test code = 8330226979) 0.15 s MV Peak E Evette (test code = 1454059947) 106.2 cm/s E/A ratio (test code = 7316184574) ratio LVOT stroke volume (test code = 9218941359) 48.30 cm3 LVOT peak evette (test code = 2861055632) 78.4 cm/s LVOT mn grad (test code = 3205115574) mmHg AV LVOT peak gradient (test code = 4211292206) mmHg LVOT peak VTI (test code = 2994066142) 14.7 cm LV V1 mean (test code = 1969823892) 51.40 cm/s Ao peak evette (test code = 8079526688) 154.7 cm/s AV area peak evette (test code = 4618592281) 1.7 cm2 Ao max PG (test code = 7809396204) 9.60 mm[Hg] AV peak gradient (test code = 7771969330) mmHg AV regurgitation pressure 1/2 time (test code = 3102568091) 257.3 ms AI dec slope (test code = 1259940111) 498.10 cm/s2 AI max evette (test code = 4981509590) 437.60 cm/s AI max PG (test code = 0548900593) 77.80 mm[Hg] Tapse (test code = 4409279946) 2.19 cm LA Volume Index (BP) (test code = 6831434291) 32.0 mL/m2 LA volume (BP) (test code = 8833844309) 62.1 mL LAV(MOD-sp2) (test code = 6671658622) 52.70 mL A4C EF (test code = 4140257052) 44.80 % EF(sp4-el) (test code = 0759006151) 45.20 % SV(MOD-sp4) (test code = 4330703024) 71.20 mL SV(sp4-el) (test code = 2839663117) 73.90 mL LV Diastolic Volume (BP) (test code = 6353732253) 146.3 mL A2C EF (test code = 2567042325) 52.00 % EF(MOD-bp) (test code = 3203461725) 46.70 % EF(sp2-el) (test code = 4154011884) 52.40 % LV Systolic Volume (BP) (test code = 1957298164) 77.9 mL SV(MOD-bp) (test code = 8985717004) 68.40 mL SV(MOD-sp2) (test code = 7473777044) 69.20 mL EF (test code = 2534489744) Left Ventricular Stroke Volume by 2-D Biplane-MOD (test code = 2892259) 68.4 mL Radiology Study observation (narrative) (test code = 37381-7) LYNDSAY (test code = LYNDSAY) ?Left?Ventricle: Left [...] agent used and saline contrast was performed. [facility] AmericaKERA (LEVETIRACETAM)2022-04-14 16:48:36* Test Item Value Reference Range Interpretation Comme [facility] KEPPRA (test code = 0485638970) 12-46 L LYNDSAY (test code = LYNDSAY) Therapeutic range: 12-46 ?g/mL ? ?Toxic: Not well established.Test developed and characteristics determined by [facility] Laboratory Services. Lab Interpretation (test code = 55552-6) Abnormal [facility] Metabolic Panel (Na, K, Cl, CO2, Glucose, BUN, Creatinine, Ca)2022-04-14 10:50:11* Test Item Value Reference Range Interpretation Comme [facility] NA (test code = 7077343594) 136 mmol/L 135-145 K (test code = 9643921046) 3.8 mmol/L 3.5-5 CL (test code = 4929229732) 105 mmol/L 98-108 CO2 TOTAL (test code = 9241462845) 25 mmol/L 23-31 AGAP (test code = 7713923646) 2-16 BUN (test code = 6739930004) 9 mg/dL 7-23 GLUCOSE (test code = 8650406059) 101 mg/dL 70-110 CREATININE (test code = 9060511313) 0.66 mg/dL 0.5-1.04 CALCIUM (test code = 7672490439) 8.1 mg/dL 8.6-10.6 L eGFR (test code = 4944522547) mL/min/1.73m2 LYNDSAY (test code = LYNDSAY) Association [...] imaging tests). Lab Interpretation (test code = 54768-4) Abnormal [facility], Jcgky3896-45-60 10:50:11* Test Item Value Reference Range Interpretation Comme nts MAGNESIUM (test code = 2736974882) 1.9 mg/dL 1.7-2.4 Lab Interpretation (test cod e = 44654-7) Normal [facility] AmericaThyroid Stimulating Cywpmkn4403-78-83 22:21:44 * Test Item Value Reference Range Interpretation Comme nts TSH (test code = 4574096714) See_Comment Biotin has been reported to cause a negative bias, interpret results relative to patient's use of biotin. [Automated message] The system which generated this result transmitted reference range: 0.45 - 4.70 mIU/L. The reference range was not used to interpret this result as normal/abnormal. Lab Interpretation (test code = 90658-5) Normal [facility] AmericaGLYCOSYLATED HEMOGLOBIN (A1C)2022-04-13 21:53:43* Test Item Value Reference Range Interpretation Comme nts HGB A1C (test code = 4548-4) 5.8 % 4-5.7 H LYNDSAY (test code = LYNDSAY) Reference RangesNormal: <5.7%Prediabetes: 5.7 - 6.4%Diabetes: > 6.5% Lab Interpretation (test code = 44026-7) Abnormal [facility] AmericaFASTING LIPID PANEL (05204)(TOTAL CHOLESTEROL, TRIGLYCERIDES, HDL)2022-04-13 21:34:53* Test Item Value Reference Range Interpretation Comme nts CHOL (test code = 5677283246) 201 mg/dL 120-200 H HDL (test code = 4292125200) 56 mg/dL See_Comment [Automated Purewinea ge] The system which generated this result transmitted reference range: >=50. The reference range was not used to interpret this result as normal/abnormal. HDLC RATIO (test code = 0682424758) See_Comment [Automated Purewinea ge] The system which generated this result transmitted reference range: <=4.5. The reference range was not used to interpret this result as normal/abnormal. TRIG (test code = 8520533588) 355 mg/dL 30-170 H LDL CHOL (test code = 39465-1) 74 mg/dL See_Comment [Automated Purewinea ge] The system which generated this result transmitted reference range: <=160. The reference range was not used to interpret this result as normal/abnormal. VLDL (test code = 0351979545) 71 mg/dL 5-60 H Lab Interpretation (test code = 75208-0) Abnormal [facility] AmericaTroponin I - Code Lqauys5428-49-14 18:46:27* Test Item Value Reference Range Interpretation Comments TROPONIN I (test code = 8990891693) 0.013 ng/mL See_Comment [Automated message] The system [...] of biotin. Lab Interpretation (test code = 62278-8) Normal [facility] AmericaBasi Metabolic Panel (NA, K, CL, CO2, Glucose, BUN, Creatinine, CA) - Code Icbwpf8723-82-85 18:35:07* Test Item Value Reference Range Interpretation Comme nts NA (test code = 9464338799) 136 mmol/L 135-145 K (test code = 9181729118) 4.3 mmol/L 3.5-5 CL (test code = 9791720754) 105 mmol/L 98-108 CO2 TOTAL (test code = 2557529172) 27 mmol/L 23-31 AGAP (test code = 4591661536) 2-16 BUN (test code = 6155673615) 8 mg/dL 7-23 GLUCOSE (test code = 0383915015) 130 mg/dL 70-110 H CREATININE (test code = 1343989980) 0.75 mg/dL 0.5-1.04 CALCIUM (test code = 9207912379) 8.5 mg/dL 8.6-10.6 L eGFR (test code = 2788878955) mL/min/1.73m2 LYNDSAY (test code = LYNDSAY) Association [...] imaging tests). Lab Interpretation (test code = 83703-8) Abnormal [facility] AmericaaPTT - Code Itrkyu3915-95-34 18:32:46* Test Item Value Reference Range Interpretation Comme [facility] APTT Patient (test code = 3173-2) See_Comment [Automated message] The system which generated this result transmitted reference range: 23 - 38 Seconds. The reference range was not used to interpret this result as normal/abnormal. LYNDSAY (test code = LYNDSAY) The [facility] patient population mean normal value for aPTT is 30 seconds. Lab Interpretation (test code = 93790-1) Normal [facility] AmericaProthrombin Time / INR - Code Ipcedz9610-69-27 18:30:45* Test Item Value Reference Range Interpretation Comme [facility] PROTIME PATIENT (test code = 5964-2) See_Comment [Automated Intelleflex] The system which generated this result transmitted reference range: 12.0 - 14.7 Seconds. The reference range was not used to interpret this result as normal/abnormal. INR (test code = 6301-6) Normal INR <1.1; Warfarin Therapeutic range 2.0 to 3.0 or 2.5 to 3.5, depending upon the indications. Lab Interpretation (test code = 92843-9) Normal [facility] without Diff - Code Bnyedn4678-59-72 18:23:07* Test Item Value Reference Range Interpretation [...] result as normal/abnormal. MPV (test code = 37106-3) 8.1 fL 9.5-12.9 L RDW-CV (test code = 788-0) 16.1 % 12-15.5 H RDW-SD (test code = 71743-2) 49.2 fL 39-49.9 NRBC x10^3 (test code = 8293567143) See_Comment [Automated messa ge] The system which generated this result transmitted reference range: 10*3/?L. The reference range was not used to interpret this result as normal/abnormal. NRBC/100 WBC (test code = 0537133723) See_Comment [Automated messa [facility]] The system which generated this result transmitted reference range: 0.0 - 10.0 /100 WBCs. The reference range was not used to interpret this result as normal/abnormal. IPF % (test code = 4829889109) Lab Interpretation (test code = 10670-4) Abnormal [facility] AmericaTROPONIN U5789-58-08 21:06:40* Test Item Value Reference Range Interpretation Comments TROPONIN I (test code = 4759341403) 0.005 ng/mL See_Comment [Automated message] The system [...] of biotin. Lab Interpretation (test code = 64455-8) Normal [facility] AmericaCOMP. METABOLIC PANEL (47358)2021-11-23 20:55:42* Test Item Value Reference Range Interpretation Comme nts NA (test code = 3400727370) 137 mmol/L 135-145 K (test code = 4300648847) 4.3 mmol/L 3.5-5.0 CL (test code = 6085673300) 104 mmol/L 98-108 CO2 TOTAL (test code = 4209375069) 22 mmol/L 23-31 L AGAP (test code = 1516499401) 2-16 BUN (test code = 1464882044) 15 mg/dL 7-23 GLUCOSE (test code = 9192561570) 114 mg/dL 70-110 H CREATININE (test code = 6321565781) 0.68 mg/dL 0.50-1.04 TOTAL BILI (test code = 7467098270) 0.5 mg/dL 0.1-1.1 CALCIUM (test code = 3890752551) 9.1 mg/dL 8.6-10.6 T PROTEIN (test code = 2805542285) 7.3 g/dL 6.3-8.2 ALBUMIN (test code = 1265697004) 4.4 g/dL 3.5-5.0 ALK PHOS (test code = 1348911471) 243 U/L 34-122 H ALTv (test code = 1742-6) 24 U/L 5-35 AST(SGOT) (test code = 9772380277) 30 U/L 13-40 eGFR (test code = 2667608462) mL/min/1.73m2 LYNDSAY (test code = LYNDSAY) Association [...] imaging tests). Lab Interpretation (test code = 61197-6) [facility]:22* Test Item Value Reference Range Interpretation Comme nts LIPASE (test code = 7450484783) 96 U/L 0-220 Lab Interpretation (test cod e = 05275-0) [facility] [id number] 20:46:00* Test Item Value Reference Range Interpretation Comme nts POCT PREG (test code = 1605) negative On board controls acceptable with C Line (test code = 3574) present POCT PREG LOT # (test code = 3575) [id number] POCT PREG TEST DATE ( test code = 3576) 04/18/2023 Lab Interpretation (test cod e = 97334-3) Normal Surgery [facility] WITH [id number] 20:40:38* Test Item Value Reference Range Interpretation [...] 31.8 g/dL 31.6-35.1 RDW-SD (test code = 17119-2) 53.7 fL 39.0-49.9 H RDW-CV (test code = 788-0) 17.2 % 12.0-15.5 H PLT (test code = 777-3) See_Comment H [Automated messa ge] The system which generated this result transmitted reference range: 166 - 358 10*3/?L. The reference range was not used to interpret this result as normal/abnormal. MPV (test code = 69780-7) 8.5 fL 9.5-12.9 L NRBC/100 WBC (test code = 3303195089) See_Comment [Automated me ssage] The system which generated this result transmitted reference range: 0.0 - 10.0 /100 WBCs. The reference range was not used to interpret this result as normal/abnormal. NRBC x10^3 (test code = 8668945724) <0.01 See_Comment [Automated messa ge] The system which generated this result transmitted reference range: 10*3/?L. The reference range was not used to interpret this result as normal/abnormal. GRAN MAT (NEUT) % (test code = 770-8) 53.7 % IMM GRAN % (test code = 8554281770) 0.90 % LYMPH % (test code = 736-9) 32.6 % MONO % (test code = 5905-5) 10.1 % EOS % (test code = 713-8) 1.5 % BASO % (test code = 706-2) 1.2 % GRAN MAT x10^3(ANC) (test code = 5402612577) 4.98 10*3/uL 1.88-7.09 IMM GRAN x10^3 (test code = 1727852724) 0.08 10*3/uL 0.00-0.06 H LYMPH x10^3 (test code = 731-0) 3.02 10*3/uL 1.32-3.29 MONO x10^3 (test code = 742-7) 0.94 10*3/uL 0.33-0.92 H EOS x10^3 (test code = 711-2) 0.14 10*3/uL 0.03-0.39 BASO x10^3 (test code = 704-7) 0.11 10*3/uL 0.01-0.07 H Lab Interpretation (test code = 80634-6) Abnormal [facility] GLUCOSE (AUTOMATED)2021-11-23 20:17:33* Test Item Value Reference Range Interpretation Comme nts POCT GLU (test code = 6026329655) 111 mg/dL 70-110 H Notified Provide r Lab Interpretation (test code = 60830-8) [facility], THINPREP, [id number] 00:00:00 * Test Item Value Reference Range Interpretation Comme nts SOURCE: (test code = 8001) Endocervical SLIDES: (test code = 8011) 1 LMP: (test code = 8021) 06/03/2021 SPECIMEN ADEQUACY: (test code = 66889) (NOTE) INTERPRETATION: (test code = 33011) ASCUS/EPITH. ABNORMALITY; SEE BELOW SKEIN BANDER: (test code = 8101) CHANA Thacker(ASCP)[facility] PATHOLOGIST INTERPRETATION BY: (test code = 8122) Nahid Russell M.D. LOCATION: (test code = [facility]) (NOTE) CPT: (test code = 8140) (NOTE) PAP TEST, THINPREP, [id number] 00:00:00* Test Item Value Reference Range Interpretation Comme nts SOURCE: (test code = 8001) Endocervical SLIDES: (test code = 8011) 1 LMP: (test code = 8021) 06/03/2021 SPECIMEN ADEQUACY: (test code = 72039) (NOTE) INTERPRETATION: (test code = 41539) ASCUS/EPITH. ABNORMALITY; SEE BELOW SKEIN BANDER: (test code = 8101) CHANA Thacker(ASCP)[facility] PATHOLOGIST INTERPRETATION BY: (test code = 8122) Nahid Russell M.D. LOCATION: (test code = [facility]) (NOTE) CPT: (test code = 8140) (NOTE) PAP TEST, THINPREP, [id number] 00:00:00* Test Item Value Reference Range Interpretation Comme nts SOURCE: (test code = 8001) Endocervical SLIDES: (test code = 8011) 1 LMP: (test code = 8021) 06/03/2021 SPECIMEN ADEQUACY: (test code = 31774) (NOTE) INTERPRETATION: (test code = 36049) ASCUS/EPITH. ABNORMALITY; SEE BELOW SKEIN BANDER: (test code = 8101) CHANA Thacker(ASCP)[facility] PATHOLOGIST INTERPRETATION BY: (test code = 8122) Nahid Russell M.D. LOCATION: (test code = 29362) (NOTE) CPT: (test code = 8140) (NOTE) PAP TEST, THINPREP, [id number] 00:00:00* Test Item Value Reference Range Interpretation Comme nts SOURCE: (test code = 8001) Endocervical SLIDES: (test code = 8011) 1 LMP: (test code = 8021) 06/03/2021 SPECIMEN ADEQUACY: (test code = 77686) (NOTE) INTERPRETATION: (test code = 30902) ASCUS/EPITH. ABNORMALITY; SEE BELOW SKEIN BANDER: (test code = 8101) CHANA Thacker(ASCP)[facility] PATHOLOGIST INTERPRETATION BY: (test code = 8122) Nahid Russell M.D. LOCATION: (test code = 82420) (NOTE) CPT: (test code = 8140) (NOTE) HPV HIGH RISK WITH GENOTYPE, [id number] 00:00:00* Test Item Value Reference Range Interpretation Comme nts HPV HIGH RISK INTERP (test c ode = 31551) POSITIVE HPV 16 (test code = 81436) POSITIVE HPV 18 (test code = 76294) NEGATIVE HPV, HR, OTHER GENOTYPES (te st code = 16855) POSITIVE HPV HIGH RISK WITH GENOTYPE, [id number] 00:00:00* Test Item Value Reference Range Interpretation Comme nts HPV HIGH RISK INTERP (test c ode = 96561) POSITIVE HPV 16 (test code = 70474) POSITIVE HPV 18 (test code = 66211) NEGATIVE HPV, HR, OTHER GENOTYPES (te st code = 45210) POSITIVE HPV HIGH RISK WITH GENOTYPE, [id number] 00:00:00* Test Item Value Reference Range Interpretation Comme nts HPV HIGH RISK INTERP (test c ode = 26093) POSITIVE HPV 16 (test code = 83824) POSITIVE HPV 18 (test code = 65956) NEGATIVE HPV, HR, OTHER GENOTYPES (te st code = 47167) POSITIVE HPV HIGH RISK WITH GENOTYPE, [id number] 00:00:00* Test Item Value Reference Range Interpretation Comme nts HPV HIGH RISK INTERP (test c ode = 87174) POSITIVE HPV 16 (test code = 46940) POSITIVE HPV 18 (test code = 50350) NEGATIVE HPV, HR, OTHER GENOTYPES (te st code = 17036) POSITIVE [id number] 03:22:48* Test Item Value Reference Range Interpretation Comme nts APPEARANCE (test code = 1994062651) Hazy Clear A COLOR (test code = 1125636913) Yellow Yellow PH (test code = 0493495809) 4.8-8.0 SP GRAVITY (test code = 3544268769) 1.003-1.030 GLU U QUAL (test code = 9932248976) Normal Normal BLOOD (test code = 5557964650) Negative Negative Interference fro m ascorbic acid may cause false negative results. KETONES (test code = 4692799608) 5 mg/dL Negative A PROTEIN (test code = 2887-8) Negative Negative UROBILIN (test code = 2606711751) 4.0 mg/dL Normal A BILIRUBIN (test code = 7408716314) Negative Negative NITRITE (test code = 2303771881) Negative Negative LEUK GRUPO (test code = 7842762454) Negative Negative RBC/HPF (test code = 4569473111) See_Comment [Automated [employer] ge] The system which generated this result transmitted reference range: 0 - 3 HPF. The reference range was not used to interpret this result as normal/abnormal. WBC/HPF (test code = 7603474231) <1 See_Comment [Automated [employer] ge] The system which generated this result transmitted reference range: 0 - 5 HPF. The reference range was not used to interpret this result as normal/abnormal. BACTERIA (test code = 8859918835) Few Negative A SQ EPITH (test code = 9456194407) HPF Lab Interpretation (test code = 16921-4) [facility]2021-[facility]29 03:22:48* Test Item Value Reference Range Interpretation Comme nts APPEARANCE (test code = 0180953786) Hazy Clear A COLOR (test code = 0015359068) Yellow Yellow PH (test code = 1980085873) 4.8-8.0 SP GRAVITY (test code = 0593086127) 1.003-1.030 GLU U QUAL (test code = 7469309886) Normal Normal BLOOD (test code = 6722947659) Negative Negative KETONES (test code = 4771548426) 5 mg/dL Negative A PROTEIN (test code = 2887-8) Negative Negative UROBILIN (test code = 3083728334) 4.0 mg/dL Normal A BILIRUBIN (test code = 0523048176) Negative Negative NITRITE (test code = 0113774096) Negative Negative LEUK GRUPO (test code = 5415938543) Negative Negative RBC/HPF (test code = 6567831380) See_Comment [Automated [employer] ge] The system which generated this result transmitted reference range: 0 - 3 HPF. The reference range was not used to interpret this result as normal/abnormal. WBC/HPF (test code = 1117717673) <1 See_Comment [Automated [employer] ge] The system which generated this result transmitted reference range: 0 - 5 HPF. The reference range was not used to interpret this result as normal/abnormal. BACTERIA (test code = 6685571890) Few Negative A SQ EPITH (test code = 7186335571) HPF Lab Interpretation (test code = 56040-1) Abnormal [facility] [id number] 02:45:00* Test Item Value Reference Range Interpretation Comments TROPONIN I (test code = 6275845564) 0.002 ng/mL See_Comment [Automated message] The system [...] of biotin. Lab Interpretation (test code = 11007-1) Normal [facility] [id number] 02:45:00* Test Item Value Reference Range Interpretation Comme nts TROPONIN I (test code = 1582334316) 0.002 ng/mL See_Comment [Automated [facility]] The system which generated this result transmitted reference range: <=0.034. The reference range was not used to interpret this result as normal/abnormal. LYNDSAY (test code = LYNDSAY) Lab Interpretation (test code = 25345-5) Normal [facility] [id number] 02:41:57* Test Item Value Reference Range Interpretation Comme nts NT-proBNP (test code = 5853952308) 169 pg/mL See_Comment H [Automated message] The system which generated this result transmitted reference range: <=125. The reference range was not used to interpret this result as normal/abnormal. LYNDSAY (test code = LYNDSAY) Biotin has been reported to cause a negative bias, interpret results relative to patient's use of biotin. Lab Interpretation (test code = 90489-8) [facility]normal [facility] [id number] 02:41:57* Test Item Value Reference Range Interpretation Comme nts NT-proBNP (test code = 7119330352) 169 pg/mL See_Comment H [Automated [employer] ge] The system which generated this result transmitted reference range: <=125. The reference range was not used to interpret this result as normal/abnormal. LYNDSAY (test code = LYNDSAY) Lab Interpretation (test code = 63039-3) Abnormal [facility]. METABOLIC PANEL (74190)2021-03-17 02:09:13* Test Item Value Reference Range Interpretation Comme nts NA (test code = 3253304391) 137 mmol/L 135-145 K (test code = 8369768248) 4.2 mmol/L 3.5-5.0 CL (test code = 2602500720) 102 mmol/L 98-108 CO2 TOTAL (test code = 3207411922) 25 mmol/L 23-31 AGAP (test code = 8454840594) 2-16 BUN (test code = 8061431247) 18 mg/dL 7-23 GLUCOSE (test code = 1897645158) 144 mg/dL 70-110 H CREATININE (test code = 7830348871) 0.77 mg/dL 0.50-1.04 TOTAL BILI (test code = 1347635961) 0.4 mg/dL 0.1-1.1 CALCIUM (test code = 4068686341) 8.9 mg/dL 8.6-10.6 T PROTEIN (test code = 2259388915) 6.8 g/dL 6.3-8.2 ALBUMIN (test code = 6399093575) 3.9 g/dL 3.5-5.0 ALK PHOS (test code = 4741003394) 84 U/L 34-122 ALTv (test code = 1742-6) 13 U/L 5-35 AST(SGOT) (test code = 0941862856) 17 U/L 13-40 eGFR (test code = 0624667585) mL/min/1.73m2 LYNDSAY (test code = LYNDSAY) Association [...] imaging tests). Lab Interpretation (test code = 84763-8) Abnormal [facility]. METABOLIC PANEL (75693)2021-03-17 02:09:13* Test Item Value Reference Range Interpretation Comme nts NA (test code = 0414876872) 137 mmol/L 135-145 K (test code = 9477586354) 4.2 mmol/L 3.5-5.0 CL (test code = 4682165256) 102 mmol/L 98-108 CO2 TOTAL (test code = 4819090674) 25 mmol/L 23-31 AGAP (test code = 4152278291) 2-16 BUN (test code = 8440361567) 18 mg/dL 7-23 GLUCOSE (test code = 4357667950) 144 mg/dL 70-110 H CREATININE (test code = 0588888322) 0.77 mg/dL 0.50-1.04 TOTAL BILI (test code = 5865793414) 0.4 mg/dL 0.1-1.1 CALCIUM (test code = 0580053371) 8.9 mg/dL 8.6-10.6 T PROTEIN (test code = 1255994447) 6.8 g/dL 6.3-8.2 ALBUMIN (test code = 3212437655) 3.9 g/dL 3.5-5.0 ALK PHOS (test code = 4116075063) 84 U/L 34-122 ALTv (test code = 1742-6) 13 U/L 5-35 AST(SGOT) (test code = 0237618967) 17 U/L 13-40 eGFR (test code = 7343643873) mL/min/1.73m2 LYNDSAY (test code = LYNDSAY) Lab Interpretation (test cod e = 10444-3) Abnormal [facility] WITH [id number] 01:56:33* Test Item Value Reference Range Interpretation [...] g/dL 31.6-35.1 L RDW-SD (test code = 83148-4) 55.5 fL 39.0-49.9 H RDW-CV (test code = 788-0) 18.9 % 12.0-15.5 H PLT (test code = 777-3) See_Comment H [Automated messa ge] The system which generated this result transmitted reference range: 166 - 358 10*3/?L. The reference range was not used to interpret this result as normal/abnormal. MPV (test code = 27670-0) 8.2 fL 9.5-12.9 L NRBC/100 WBC (test code = 8486029429) See_Comment [Automated Quartzy ssage] The system which generated this result transmitted reference range: 0.0 - 10.0 /100 WBCs. The reference range was not used to interpret this result as normal/abnormal. NRBC x10^3 (test code = 4202643107) <0.01 See_Comment [Automated messa ge] The system which generated this result transmitted reference range: 10*3/?L. The reference range was not used to interpret this result as normal/abnormal. GRAN MAT (NEUT) % (test code = 770-8) 61.7 % IMM GRAN % (test code = 9893609882) 0.80 % LYMPH % (test code = 736-9) 28.5 % MONO % (test code = 5905-5) 6.3 % EOS % (test code = 713-8) 1.8 % BASO % (test code = 706-2) 0.9 % GRAN MAT x10^3(ANC) (test code = 3505410192) 7.31 10*3/uL 1.88-7.09 H IMM GRAN x10^3 (test code = 5560879267) 0.09 10*3/uL 0.00-0.06 H LYMPH x10^3 (test code = 731-0) 3.38 10*3/uL 1.32-3.29 H MONO x10^3 (test code = 742-7) 0.75 10*3/uL 0.33-0.92 EOS x10^3 (test code = 711-2) 0.21 10*3/uL 0.03-0.39 BASO x10^3 (test code = 704-7) 0.11 10*3/uL 0.01-0.07 H Lab Interpretation (test code = 94834-4) Abnormal [facility] WITH [id number] 01:56:33* Test Item Value Reference Range Interpretation [...] g/dL 31.6-35.1 L RDW-SD (test code = 77835-7) 55.5 fL 39.0-49.9 H RDW-CV (test code = 788-0) 18.9 % 12.0-15.5 H PLT (test code = 777-3) See_Comment H [Automated messa ge] The system which generated this result transmitted reference range: 166 - 358 10*3/?L. The reference range was not used to interpret this result as normal/abnormal. MPV (test code = 16095-0) 8.2 fL 9.5-12.9 L NRBC/100 WBC (test code = 3681105941) See_Comment [Automated me ssage] The system which generated this result transmitted reference range: 0.0 - 10.0 /100 WBCs. The reference range was not used to interpret this result as normal/abnormal. NRBC x10^3 (test code = 6736670822) <0.01 See_Comment [Automated messa ge] The system which generated this result transmitted reference range: 10*3/?L. The reference range was not used to interpret this result as normal/abnormal. GRAN MAT (NEUT) % (test code = 770-8) 61.7 % IMM GRAN % (test code = 9086931357) 0.80 % LYMPH % (test code = 736-9) 28.5 % MONO % (test code = 5905-5) 6.3 % EOS % (test code = 713-8) 1.8 % BASO % (test code = 706-2) 0.9 % GRAN MAT x10^3(ANC) (test code = 0764578337) 7.31 10*3/uL 1.88-7.09 H IMM GRAN x10^3 (test code = 7596821055) 0.09 10*3/uL 0.00-0.06 H LYMPH x10^3 (test code = 731-0) 3.38 10*3/uL 1.32-3.29 H MONO x10^3 (test code = 742-7) 0.75 10*3/uL 0.33-0.92 EOS x10^3 (test code = 711-2) 0.21 10*3/uL 0.03-0.39 BASO x10^3 (test code = 704-7) 0.11 10*3/uL 0.01-0.07 H Lab Interpretation (test code = 80300-0) [facility]ID NOW RAPID TESTING)2021-03-17 01:38:12* Test Item Value Reference Range Interpretation Comme nts SARS-CoV-2 Rapid ID NOW (test code = 80146-6) Not Detected Not Detected LYNDSAY (test code = LYNDSAY) ID NOW COVID-19 As say is an isothermal nucleic acid amplification test intended for the qualitative detection of nucleic acid from SARS-CoV-2 viral RNA in nasopharyngeal (IRRADIATED FUEL HANDLER) specimens. It is used under Emergency Use [...] clinically indicated. Lab Interpretation (test code = 33101-4) [place] [address] (ID NOW RAPID TESTING)2021-03-17 01:38:12* Test Item Value Reference Range Interpretation Comme nts SARS-CoV-2 Rapid ID NOW (raisa t code = 05779-7) Not Detected Not Detected LYNDSAY (test code = LYNDSAY) Lab Interpretation (test cod e = 26575-8) [place] [address] (ID NOW RAPID TESTING)2021-02-19 17:42:45* Test Item Value Reference Range Interpretation Comme nts SARS-CoV-2 Rapid ID NOW (test code = 47896-3) Not Detected Not Detected LYNDSAY (test code = LYNDSAY) ID NOW COVID-19 As say is an isothermal nucleic acid amplification test intended for the qualitative detection of nucleic acid from SARS-CoV-2 viral RNA in nasopharyngeal (IRRADIATED FUEL HANDLER) specimens. It is used under Emergency Use Authorization (EUA) by [facility]. The limit of detection (LOD) of [...] clinically indicated. Lab Interpretation (test code = 72081-2) [facility] ABDOMEN PELVIS W [id number] 17:24:55Thickening of the gastric antrum and duodenal [...] Electronicallysigned by James Freeman at 02/19/2021 12:24 PMSurgery [facility] AmericaUrinalysis2021-08-03 17:03:40* Test Item Value Reference Range Interpretation Comme nts APPEARANCE (test code = 9815239589) Hazy Clear A COLOR (test code = 1045425825) Mabel Yellow A PH (test code = 9884256929) 4.8-8.0 SP GRAVITY (test code = 3063598651) 1.003-1.030 H GLU U QUAL (test code = 2847927371) Normal Normal BLOOD (test code = 6541497683) Negative Negative KETONES (test code = 0159347686) 5 mg/dL Negative A PROTEIN (test code = 2887-8) 30 mg/dL Negative A UROBILIN (test code = 2188024808) 4.0 mg/dL Normal A BILIRUBIN (test code = 3749448367) 4 mg/dL Negative A NITRITE (test code = 7904123407) Negative Negative LEUK GRUPO (test code = 5609951193) Negative Negative RBC/HPF (test code = 7716996660) See_Comment H [Automated messa ge] The system which generated this result transmitted reference range: 0 - 3 HPF. The reference range was not used to interpret this result as normal/abnormal. WBC/HPF (test code = 8325561510) See_Comment H [Automated messa ge] The system which generated this result transmitted reference range: 0 - 5 HPF. The reference range was not used to interpret this result as normal/abnormal. BACTERIA (test code = 7693029435) Few Negative A MUCOUS (test code = 4289859929) Moderate Negative LPF A SQ EPITH (test code = 7341508823) HPF CA OXALATE (test code = 8875824297) See_Comment H [Automated messa ge] The system which generated this result transmitted reference range: <=1 HPF. The reference range was not used to interpret this result as normal/abnormal. Ictotest (test code = 7628033996) Negative Lab Interpretation (test code = 63824-7) Abnormal [facility] America[facility] Metabolic [id number] 16:34:55* Test Item Value Reference Range Interpretation Comme nts NA (test code = 5625534883) 139 mmol/L 135-145 K (test code = 1868926678) 4.3 mmol/L 3.5-5.0 CL (test code = 7600039119) 105 mmol/L 98-108 CO2 TOTAL (test code = 1111854782) 26 mmol/L 23-31 AGAP (test code = 8965639949) 2-16 BUN (test code = 1732165024) 11 mg/dL 7-23 GLUCOSE (test code = 7016519851) 95 mg/dL 70-110 CREATININE (test code = 9113264161) 0.70 mg/dL 0.50-1.04 TOTAL BILI (test code = 0248029096) 0.6 mg/dL 0.1-1.1 CALCIUM (test code = 2425796893) 8.9 mg/dL 8.6-10.6 T PROTEIN (test code = 7897209441) 7.7 g/dL 6.3-8.2 ALBUMIN (test code = 8259450137) 4.1 g/dL 3.5-5.0 ALK PHOS (test code = 8954087296) 79 U/L 34-122 ALTv (test code = 1742-6) 10 U/L 5-35 AST(SGOT) (test code = 7812540573) 22 U/L 13-40 eGFR (test code = 1546153344) mL/min/1.73m2 LYNDSAY (test code = LYNDSAY) Association [...] or urine or abnormalities in imaging tests). [facility] AmericaLipase, [id number] 16:34:14* Test Item Value Reference Range Interpretation Comme nts LIPASE (test code = 1293017101) 45 U/L 0-220 Lab Interpretation (test cod e = 23927-5) Normal [facility] with [id number] 16:21:12* Test Item Value Reference Range Interpretation [...] g/dL 31.6-35.1 L RDW-SD (test code = 23608-2) 54.4 fL 39.0-49.9 H RDW-CV (test code = 788-0) 18.3 % 12.0-15.5 H PLT (test code = 777-3) See_Comment H [Automated messa ge] The system which generated this result transmitted reference range: 166 - 358 10*3/?L. The reference range was not used to interpret this result as normal/abnormal. MPV (test code = 06183-5) 8.5 fL 9.5-12.9 L NRBC/100 WBC (test code = 3697122986) See_Comment [Automated Quartzy ssage] The system which generated this result transmitted reference range: 0.0 - 10.0 /100 WBCs. The reference range was not used to interpret this result as normal/abnormal. NRBC x10^3 (test code = 8262101331) <0.01 See_Comment [Automated messa ge] The system which generated this result transmitted reference range: 10*3/?L. The reference range was not used to interpret this result as normal/abnormal. GRAN MAT (NEUT) % (test code = 770-8) 78.3 % IMM GRAN % (test code = 3200146308) 0.40 % LYMPH % (test code = 736-9) 15.4 % MONO % (test code = 5905-5) 4.8 % EOS % (test code = 713-8) 0.1 % BASO % (test code = 706-2) 1.0 % GRAN MAT x10^3(ANC) (test code = 5099745874) 7.15 10*3/uL 1.88-7.09 H IMM GRAN x10^3 (test code = 6417640273) 0.04 10*3/uL 0.00-0.06 LYMPH x10^3 (test code = 731-0) 1.41 10*3/uL 1.32-3.29 MONO x10^3 (test code = 742-7) 0.44 10*3/uL 0.33-0.92 EOS x10^3 (test code = 711-2) <0.03 0.03-0.39 L BASO x10^3 (test code = 704-7) 0.09 10*3/uL 0.01-0.07 H Lab Interpretation (test code = 09350-3) Abnormal [facility]
[2023-07-31 14:31] LABS: Absolute Lymphocytes (CBC) 1.5 K/uL (0.7-4.9); Hematocrit 40.3 % (36.0-45.0); Lymphocytes % 19.9 % (15.3-44.8); MPV 6.3 fL (7.6-11.3); Platelets 452 thou/uL (152-406); RBC Red Blood Cell Count 4.58 M/uL (3.86-4.86)
--- NOTE | 2023-07-31 14:32 | RAD REPORT ---
EXAM DESCRIPTION: CTAbdomen Pelvis W Contrast - 07/31/2023 2:24 pm CLINICAL HISTORY: Abdominal pain. ABD PAIN COMPARISON: <Comparisons> TECHNIQUE: Biphasic CT imaging of the abdomen and pelvis was performed with 100 ml non-ionic IV cont rast. All CT scans are performed using dose optimization technique as appropriate and may include automated exposure control or mA/KV adjustment according to patient size. FINDINGS: The lung bases are clear. The liver demonstrates diffuse fatty infiltration. Cholecystectomy clips. Spleen, pancreas, right adr enal gland and kidneys are within normal limits. 29 mm left adrenal mass, unchanged. No bowel obstruction, free air, free fluid or abscess. Sigmoid diverticulosis coli is present without diverticulitis. Enhancement of the colon mucosa. The appendix is normal. Aortoiliac atherosclerosis. No evidence of significant lymphadenopathy. No suspicious bony findings. IMPRESSION: Mild diffuse colitis pattern is suspected. Mild diffuse fatty liver.
[2023-07-31 15:04] LABS: Albumin 3.4 g/dL (3.4-5.0); Bilirubin Total 0.4 mg/dL (0.2-1.0); Potassium 3.5 mEq/L (3.5-5.1); Protein, Total 7.4 g/dL (6.4-8.2)
--- NOTE | 2023-07-31 16:08 | EDPHYS ---
Physician Documentation [facility] Name: Heather Coon Age: 53 yrs Sex: Female : 1970 Arrival Date: 07/31/2023 Time: 13:40 Bed 20 Private MD: ED Physician Rogelio Hummel HPI: 07/31 15:19 This 53 yrs old Female presents to ER via Ambulatory with complaints of Abdominal Pain. sp3 15:19 53-year-old female with a history of bipolar disease, COPD, anxiety, chronic abdominal sp3 pain, history of diverticulitis now presents to the ED with chief complaint diffuse abdominal pain concentrating on left lower quadrant. She denies any vomiting, diarrhea, back pain, chest pain, shortness of breath, fever, bleeding, or any other signs or symptoms on ROS at this time.. Historical: - Allergies: 14:00 fluoxetine; ap3 14:00 Green Tea; ap3 14:00 Keppra; not an allergy; ap3 - PMHx: 14:00 Anxiety; Arthritis; Bipolar disorder; Cancer-Cervical; Chronic obstructive lung ap3 disease; Chronic pain; Congestive heart failure; Depression; Diverticulitis; Herniated Back Disc; Hypertension; intestinal mass; Myocardial infarction; pt reports hx of seizures; Spastic Muscles; stroke; - PSHx: 14:00 cervical fusion; Cholecystectomy; foot; Tonsillectomy; ap3 - Immunization history:: Client reports receiving the 2nd dose of the Covid vaccine, Flu vaccine is not up to date. - Social history:: Smoking status: Patient reports the use of cigarette tobacco products, smokes one pack cigarettes per day. Patient uses street drugs, marijuana. ROS: 15:21 Constitutional: Negative for fever, chills, and weight loss, Eyes: Negative for injury, sp3 pain, redness, and discharge, ENT: Negative for injury, pain, and discharge, Neck: Negative for injury, pain, and swelling, Respiratory: Negative for shortness of breath, cough, wheezing, and pleuritic chest pain, Back: Negative for injury and pain, MS/Extremity: Negative for injury and deformity, Skin: Negative for injury, rash, and discoloration, Neuro: Negative for headache, weakness, numbness, tingling, and seizure, Psych: Negative for depression, anxiety, suicide ideation, homicidal ideation, and hallucinations, Allergy/Immunology: Negative for hives, rash, and allergies, Endocrine: Negative for neck swelling, polydipsia, polyuria, polyphagia, and marked weight changes, 15:21 All other systems are negative, Exam: 15:22 Constitutional: This is a well developed, well nourished patient who is awake, alert, sp3 and in no acute distress. Head/Face: Normocephalic, atraumatic. Eyes: Pupils equal round and reactive to light, extra-ocular motions intact. Lids and lashes normal. Conjunctiva and sclera are non-icteric and not injected. Cornea within normal limits. Periorbital areas with no swelling, redness, or edema. Neck: Trachea midline, no thyromegaly or masses palpated, and no cervical lymphadenopathy. Supple, full range of motion without nuchal rigidity, or vertebral point tenderness. No Meningismus. Chest/axilla: Normal chest wall appearance and motion. Nontender with no deformity. No lesions are appreciated. Respiratory: Lungs have equal breath sounds bilaterally, clear to auscultation and percussion. No rales, rhonchi or wheezes noted. No increased work of breathing, no retractions or nasal flaring. Back: No spinal tenderness. No costovertebral tenderness. Full range of motion. Skin: Warm, dry with normal turgor. Normal color with no rashes, no lesions, and no evidence of cellulitis. MS/ Extremity: Pulses equal, no cyanosis. Neurovascular intact. Full, normal range of motion. Neuro: Awake and alert, GCS 15, oriented to person, place, time, and situation. Cranial nerves II-XII grossly intact. Motor strength 5/5 in all extremities. Sensory grossly intact. Cerebellar exam normal. Normal gait. Psych: Awake, alert, with orientation to person, place and time. Behavior, mood, and affect are within normal limits. 15:22 Cardiovascular: Rate: tachycardic, 15:22 Abdomen/GI: Left lower quadrant abdominal pain without peritoneal signs, rebound or guarding., Vital Signs: 13:59 BP 158 / 95; Pulse 117; Resp 19; Temp 98.3(O); Pulse Ox 100% ; Weight 81.65 kg; Height ap3 5 ft. 3 in. ; Pain 8/10; 14:00 BP 143 / 87; Pulse 112; Resp 18; Pulse Ox 99% on R/A; me1 15:00 BP 138 / 79; Pulse 107; Resp 18; Pulse Ox 100% ; me1 16:00 BP 143 / 85; Pulse 109; Resp 18; Pulse Ox 98% on R/A; me1 17:00 BP 127 / 80; Pulse 96; Resp 19; Pulse Ox 100% on R/A; me1 17:00 BP 137 / 82; Pulse 103; Resp 18; Pulse Ox 98% on R/A; me1 13:59 Body Mass Index 31.89 (81.65 kg, 160.02 cm) ap3 13:59 Pain Scale: Adult ap3 MDM: 14:03 Patient medically screened. sp3 15:24 Data reviewed: vital signs, nurses notes, old medical records, lab test result(s), sp3 radiologic studies. ED course: Laboratory values are within normal limits. CT scan demonstrates diffuse mild colitis. We will give 2 L normal saline, IV antibiotics, pain and nausea control and discharged home on p.o. antibiotics once heart rate is little improved and patient feels better. Clinically there is no obstruction, peritonitis, sepsis, shock, perforation, or any other critical process at this time.. 07/31 14:08 Order name: CBC with Diff; Complete Time: 15:12 sp3 07/31 14:08 Order name: CMP; Complete Time: 15:12 sp3 07/31 14:08 Order name: Lipase; Complete Time: 15:12 sp3 07/31 14:08 Order name: CT Abd/Pelvis - IV Contrast Only; Complete Time: 15:12 sp3 07/31 14:08 Order name: IV Saline Lock; Complete Time: 14:22 sp3 07/31 14:08 Order name: Labs collected and sent; Complete Time: 14:22 sp3 Administered Medications: 15:13 Drug: NS 0.9% IV 1000 ml IV at 1 bolus Per protocol; 1000 mL bolus Route: IV; Rate: 1 me1 bolus; Site: right antecubital; 16:08 Follow up: IV Status: Completed infusion; IV Intake: 1000ml me1 15:13 Drug: Ondansetron IVP 4 mg IVP once; over 2 minutes Route: IVP; Site: right antecubital;me1 16:08 Follow up: Response: No adverse reaction me1 16:07 Drug: NS 0.9% IV 1000 ml IV at 1 bolus Per protocol; 1000 mL bolus Route: IV; Rate: 1 me1 bolus; Site: right antecubital; 17:06 Follow up: IV Status: Completed infusion; IV Intake: 1000ml me1 16:07 Drug: metroNIDAZOLE IVPB 500 mg 100 ml IVPB at 200 ml/hr once over 30 mins Volume: 100 me1 ml; Route: IVPB; Rate: 200 ml/hr; Infused Over: 30 mins; Site: right antecubital; 17:05 Follow up: Response: No adverse reaction; IV Status: Completed infusion me1 16:07 Drug: HYDROmorphone IVP 1 mg IVP once Route: IVP; Site: right antecubital; me1 16:37 Follow up: Response: No adverse reaction; Pain is decreased me1 16:37 Drug: Ciprofloxacin IVPB 400 mg 200 ml IVPB once over 60 mins Volume: 200 ml; Route: me1 IVPB; Infused Over: 60 mins; Site: right antecubital; 17:37 Follow up: Response: No adverse reaction; IV Status: Completed infusion me1 Disposition Summary: 07/31/23 16:07 Discharge Ordered Notes: Location: Home sp3 Condition: Stable sp3 Diagnosis - Colitis, diverticulitis, abdominal pain sp3 Followup: sp3 - With: Private Physician - When: Upon discharge from the Emergency Department - Reason: Continuance of care Discharge Instructions: - Discharge Summary Sheet sp3 - Colitis sp3 Forms: - Medication Reconciliation Form sp3 - Thank You Letter sp3 - Antibiotic Education sp3 - Prescription Opioid Use sp3 - Patient Portal Instructions sp3 - Leadership Thank You Letter sp3 Prescriptions: - Flagyl 500 mg Oral tablet - take 1 tablet ORAL route every 8 hours for 7 days; 21 tablet; Refills: 0, sp3 Product Selection Permitted - Cipro 500 mg Oral Tablet - take 1 tablet ORAL route every 12 hours for 7 days; 14 tablet; Refills: 0, sp3 Product Selection Permitted Signatures: Dispatcher [employer] Freida Valentino RN RN ap3 Rogelio Hummel MD MD sp3 Frieda Boyd RN RN me1
--- NOTE | 2023-07-31 16:08 | ER ---
Nurse's Notes [facility] Name: Heather Coon Age: 53 yrs Sex: Female : 1970 Arrival Date: 07/31/2023 Time: 13:40 Bed 20 Private MD: Diagnosis: Colitis, diverticulitis, abdominal pain Presentation: 07/31 13:59 Chief complaint: Patient states: she has been having abdominal pain for approx 3 days ap3 with nausea and vomiting. patient reports that her pain is currently a 8/10 on the pain scale. Coronavirus screen: At this time, the client does not indicate any symptoms associated with coronavirus-19. Ebola Screen: No symptoms or risks identified at this time. Initial Sepsis Screen: Does the patient meet any 2 criteria? HR > 90 bpm. Does the patient have a suspected source of infection? Yes: Acute abdominal pain. Risk Assessment: Do you want to hurt yourself or someone else? Patient reports no desire to harm self or others. Onset of symptoms was July 28, 2022. 13:59 Method Of Arrival: Ambulatory ap3 13:59 Acuity: ANDER 3 ap3 Triage Assessment: 14:00 General: Appears ill, Behavior is calm, cooperative, appropriate for age. Pain: ap3 Complains of pain in abdomen Pain does not radiate. Pain currently is 8 out of 10 on a pain scale. Pain began gradually, 2-3 days ago. Also complains of nausea. Neuro: Level of Consciousness is awake, alert, obeys commands, Oriented to person, place, time, situation, Appropriate for age Speech is normal. Cardiovascular: Patient's skin is warm and dry. Respiratory: Airway is patent Respiratory effort is even, unlabored, Respiratory pattern is regular, symmetrical. GI: Reports lower abdominal pain, upper abdominal pain, nausea, vomiting. Historical: - Allergies: 14:00 fluoxetine; ap3 14:00 Green Tea; ap3 14:00 Keppra; not an allergy; ap3 - PMHx: 14:00 Anxiety; Arthritis; Bipolar disorder; Cancer-Cervical; Chronic obstructive lung ap3 disease; Chronic pain; Congestive heart failure; Depression; Diverticulitis; Herniated Back Disc; Hypertension; intestinal mass; Myocardial infarction; pt reports hx of seizures; Spastic Muscles; stroke; - PSHx: 14:00 cervical fusion; Cholecystectomy; foot; Tonsillectomy; ap3 - Immunization history:: Client reports receiving the 2nd dose of the Covid vaccine, Flu vaccine is not up to date. - Social history:: Smoking status: Patient reports the use of cigarette tobacco products, smokes one pack cigarettes per day. Patient uses street drugs, marijuana. Screenin:[address] [facility] ED Fall Risk Assessment (Adult) History of falling in the last 3 months, ap3 including since admission No falls in past 3 months (0 pts). Abuse screen: Denies threats or abuse. Nutritional screening: No deficits noted. Tuberculosis screening: No symptoms or risk factors identified. Vital Signs: 13:59 BP 158 / 95; Pulse 117; Resp 19; Temp 98.3(O); Pulse Ox 100% ; Weight 81.65 kg; Height ap3 5 ft. 3 in. ; Pain 8/10; 14:00 BP 143 / 87; Pulse 112; Resp 18; Pulse Ox 99% on R/A; me1 15:00 BP 138 / 79; Pulse 107; Resp 18; Pulse Ox 100% ; me1 16:00 BP 143 / 85; Pulse 109; Resp 18; Pulse Ox 98% on R/A; me1 17:00 BP 127 / 80; Pulse 96; Resp 19; Pulse Ox 100% on R/A; me1 17:00 BP 137 / 82; Pulse 103; Resp 18; Pulse Ox 98% on R/A; me1 13:59 Body Mass Index 31.89 (81.65 kg, 160.02 cm) ap3 13:59 Pain Scale: Adult ap3 ED Course: 13:42 Patient arrived in ED. mr 13:48 Rogelio Hummel MD is Attending Physician. sp3 14:00 Triage completed. ap3 14:01 Arm band placed on right wrist. ap3 14:02 Patient has correct armband on for positive identification. Bed in low position. Call ap3 light in reach. Side rails up X 1. Adult w/ patient. Pulse ox on. NIBP on. Door closed. Noise minimized. 14:05 Frieda Boyd, BETH is Primary Nurse. me1 14:22 Inserted saline lock: 22 gauge in right antecubital area, using aseptic technique. me1 14:22 CBC with Diff Sent. me1 14:22 CMP Sent. me1 14:22 Lipase Sent. me1 14:26 CT Abd/Pelvis - IV Contrast Only In Process Unspecified. EDMS Administered Medications: 15:13 Drug: NS 0.9% IV 1000 ml IV at 1 bolus Per protocol; 1000 mL bolus Route: IV; Rate: 1 me1 bolus; Site: right antecubital; 16:08 Follow up: IV Status: Completed infusion; IV Intake: 1000ml me1 15:13 Drug: Ondansetron IVP 4 mg IVP once; over 2 minutes Route: IVP; Site: right antecubital;me1 16:08 Follow up: Response: No adverse reaction me1 16:07 Drug: NS 0.9% IV 1000 ml IV at 1 bolus Per protocol; 1000 mL bolus Route: IV; Rate: 1 me1 bolus; Site: right antecubital; 17:06 Follow up: IV Status: Completed infusion; IV Intake: 1000ml me1 16:07 Drug: metroNIDAZOLE IVPB 500 mg 100 ml IVPB at 200 ml/hr once over 30 mins Volume: 100 me1 ml; Route: IVPB; Rate: 200 ml/hr; Infused Over: 30 mins; Site: right antecubital; 17:05 Follow up: Response: No adverse reaction; IV Status: Completed infusion me1 16:07 Drug: HYDROmorphone IVP 1 mg IVP once Route: IVP; Site: right antecubital; me1 16:37 Follow up: Response: No adverse reaction; Pain is decreased me1 16:37 Drug: Ciprofloxacin IVPB 400 mg 200 ml IVPB once over 60 mins Volume: 200 ml; Route: me1 IVPB; Infused Over: 60 mins; Site: right antecubital; 17:37 Follow up: Response: No adverse reaction; IV Status: Completed infusion me1 Medication: 14:02 VIS not applicable for this client. ap3 Intake: 16:08 IV: 1000ml; Total: 1000ml. me1 17:06 IV: 1000ml; Total: 2000ml. me1 Outcome: 16:07 Discharge ordered by sp3 17:45 Patient left the ED. mb9 Signatures: Dispatcher [employer] EDKY FunkShy Reg Reg mr Prokisch, Amanda, RN RN ap3 Rogelio Hummel MD MD sp3 Shy Gonzalez RN RN mb9 Frieda Boyd RN RN me1
[2023-07-31 20:21] VITALS: BP 137/82; TEMP 98.3; O2SAT 98
== END ==
LOC: ER 13:40
DX: K52.9 Noninfective gastroenteritis and colitis, unspecified (principal); K57.32 Diverticulitis of large intestine without perforation or abscess without bleeding
CPT/HCPCS: 36415; 74177; 80053; 83690; 85025; 96361; 96365; 96375; 99284; J0744; J1170; J2405; J7030; Q9967

== ENCOUNTER → 2023-08-06 | Emergency (ER) | payer SELFPAY ==
[~2023-08-06] MED LIST changes: -CIPROFLOXACIN 400mg IV 400 MG/200 ML BAG IV ONE; -HYDROMORPHONE HCL 1 MG/ML INJ ONE; -METRONIDAZOLE 500mg IVPB 500 MG/100 ML BAG IV ONE; +MORPHINE 4 MG/ML SYR ONE
--- OUTSIDE RECORDS SUMMARY | 2023-08-06 10:33 | XMS REPORT | Continuity of Care Document ---
Author Name Unknown Address [address] [facility] [place] [address] [facility] thconnect Address [address] [place] [address] Care Team Providers Care Director Of Marketing Communications Name Role Phone Myacaro Aneta SUAREZ Primary Care Physician [phone] AYDEE GO Attending Clinician Unavailable CARA BURGESS Attending Clinician Unavailab ADAM Cabrera Attending Clinician Unavailable THOMAS LOZOYA Attending Clinician Nina MARIAH Quiroga Attending Clinician Unavailable Cara Burgess MD Attending Clinician [phone] Aydee Go MD Attending Clinician [phone] System, Provider Not In Attending Clinician Unav Dallas Allen Attending Clinician UnavailAdam Vasques MD Attending Clinician [phone] Harry Newsome MD Attending Clinician Antwon Cote MD Attending Clinician [phone] Ramya ELIZONDO, Yue Dumont Attending Clinician [phone] Tamica ELIZONDO, Connie Antonio Attending Clinician [phone] Jasen ELIZONDO, Mariah Attending Clinician [phone] Devora ELIZONDO, Thomas Hopkins Attending Clinician CONNIE DAVEY Attending Clinician UnavailAlfonso Oh Attending Clinician Unavailable Alfonso Lopez Attending Clinician [phone] RITCHIE WARREN Attending Clinician Unavailable Briana ELIZONDO, Ritchie Stoner Attending Clinician [phone] Rk CAMPOS, Shy Stoner Attending Clinician [phone] Reji ELIZONDO, Halima Hummel Attending Clinician [phone] Lucho ELIZONDO, Jen Olivia Attending Clinician [phone] Roxi ELIZONDO, Parrish Reyez Attending Clinici an PARRISH WHEATLEY Attending Clinician Unavaila LORENZA Mariscal Attending Clinician Unavailable Sav Rondon MD Attending Clinician [phone] Lorenza Lowry MD Attending Clinician [phone] Maria Teresa Nicole LVN Attending Clinician [phone] CHANTEL BOJORQUEZ Attending Clinician CHANTEL Kelly Attending Clinician Jack Ibrahim MD, Brandyn Otoole Attending Clinician [phone] SELINA MARTINES Attending Clinician Unavailable Sapna Vargas DO Attending Clinician [phone] Tyrel ELIZONDO, Glory Katz Attending Clinician + Selina Martines MD Attending Clinician [phone] Chung Graham Attending Clinician U chelsi Pak MD, Jose Attending Clinician [phone] JOSE PAK Attending Clinician Unavailable NICHELLE VIRK Attending Clinician Unavaila Nichelle Lakhani Attending Clinician [phone] Doctor Unassigned, Harlan Attending Clinician U chelsi Nava RN, Miky Attending Clinician Unavailab monroe SUAREZ, Fabrice Attending Clinician [phone] [place] [employer], Lydia Attending Clinician [phone] Unknown, Attending Attending Clinician Unavailab le UNKNOWN, ATTENDING Attending Clinician Unavailab Anali Berg Attending Clinician [phone] Yehuda Arcos MD Attending Clinician [phone] CARA BURGESS Admitting Clinician Unavailab ADAM Cabrera Admitting Clinician Unavailable MARIAH ALDRIDGE Admitting Clinician Unavailable CONNIE DAVEY Admitting Clinician UnavailAlfonso Oh Admitting Clinician Unavailable RITCHIE WARREN Admitting Clinician Unavailable JEN GELLER Admitting Clinician Unavaila LORENZA Mariscal Admitting Clinician Unavailable Lorenza Lowry MD Admitting Clinician [phone] BRANDYN IBRAHIM Admitting Clinician Unavailable Brandyn Ibrahim MD Admitting Clinician [phone] GLORY ESTEVES Admitting Clinician Unav NICHELLE Padron Admitting Clinician Unavaila ble Payers Payer Name Policy Type Policy Number Effective Date Expirati on Date Source [facility] [id number] 2023 00:00:00 MEDICAID PENDING PENDING 2022 00:00:00 Problems Condition Name Condition Details Condition Category Status Onset Date Resolution Date Last Treatment Date Treating Clinician Comments Source Cavitary lesion of lung Cavitary lesion of lung Disease Active 2022-07 00:00: 00 [facility] Bilateral leg weakness Bilateral leg weakness Disease Active 2022-07 00:00: 00 [facility] Pneumonia Pneumonia Disease Active 2022-07 00:00: 00 [facility] Cervical myelopathy Cervical myelopathy Disease Recurre nce 2022-07 00:00: 00 [facility] Cervical disc disorder with myelopathy , high cervical region Cervical disc disorder with myelopathy , high cervical region Disease Active 2022-07 1-09 00:00: 00 [facility] Cord compressio n Cord compressio n Disease Recurre nce 9-11 00:00: 00 [facility] Cauda equina compressio n Cauda equina compressio n Disease Recurre nce 0 9-11 00:00: 00 [facility] Seizure Seizure Disease Recurre nce 1-14 00:00: 00 [facility] Cardiomyop athy Cardiomyop athy Disease Active 08-01 00:00: 00 [facility] NSVT (nonsustai keisha ventricula r tachycardi a) NSVT (nonsustai keisha ventricula r tachycardi a) Disease Active 08-01 00:00: 00 [facility] Chest pain, unspecifie d type Chest pain, unspecifie d type Disease Active 07-31 00:00: 00 [facility] Elevated brain natriureti c peptide (BNP) level Elevated brain natriureti c peptide (BNP) level Disease Active 07-31 00:00: 00 [facility] 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 Disease Active 07-31 00:00: 00 [facility] Snores Snores Disease Active 07-31 00:00: 00 [facility] Cigarette smoker Cigarette smoker Disease Active 07-31 00:00: 00 [facility] Primary hypertensi on Primary hypertensi on Disease Active 07-31 00:00: 00 [facility] Other hyperlipid emia Other hyperlipid emia Disease Active 07-31 00:00: 00 [facility] 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 Disease Active 07-31 00:00: 00 [facility] Chronic bilateral low back pain with bilateral sciatica Chronic bilateral low back pain with bilateral sciatica Disease Active 2021-07 0-17 00:00: 00 [facility] 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 Disease Active 04-15 00:00: 00 [facility] Neuroforam inal stenosis of cervical spine Neuroforam inal stenosis of cervical spine Disease Active 04-15 00:00: 00 [facility] Stroke-lik e symptoms Stroke-lik e symptoms Disease Active 04-13 00:00: 00 [facility] Bipolar disorder, in partial remission, most recent episode manic Bipolar disorder, in partial remission, most recent episode manic Disease Active 09-27 00:00: 00 [facility] Neuroforam inal stenosis of lumbar spine Neuroforam inal stenosis of lumbar spine Disease Active 09-27 00:00: 00 [facility] Bilateral acute otitis media, recurrence not specified, unspecifie d otitis media type Bilateral acute otitis media, recurrence not specified, unspecifie d otitis media type Disease Active 09-27 00:00: 00 [facility] Lumbar spinal stenosis Lumbar spinal stenosis Disease Active 09-27 00:00: 00 [facility] Right-side d low back pain with sciatica, sciatica laterality unspecifie d Right-side d low back pain with sciatica, sciatica laterality unspecifie d Disease Active 09-27 00:00: 00 [facility] Generalize d anxiety disorder Generalize d anxiety disorder Disease Active 09-27 00:00: 00 [facility] Agoraphobi a Agoraphobi a Disease Active 09-27 00:00: 00 [facility] Bipolar disorder, in partial remission, most recent episode manic Bipolar disorder, in partial remission, most recent episode manic Disease Active 09-27 00:00: 00 [facility] Obsessive compulsive disorder Obsessive compulsive disorder Disease Active 09-27 00:00: 00 [facility] Breast mass, left Breast mass, left Disease Active 09-17 00:00: 00 [facility] Anxiety Anxiety Disease Active 09-17 00:00: 00 [facility] Lower back pain Lower back pain Disease Active 09-17 00:00: 00 [facility] High blood pressure High blood pressure Disease Active 09-17 00:00: 00 [facility] COPD (chronic obstructiv e pulmonary disease) COPD (chronic obstructiv e pulmonary disease) Disease Active 09-17 00:00: 00 [facility] Obesity Obesity Disease Active 09-17 00:00: 00 [facility] Allergies, Adverse Reactions, Alerts Allergy Name Allergy Type Status Severity Reaction(s) Onset Date Inactive Date Treating Clinician Comments Source FLUOXETI NE Allergy Active 03-29 00:00: 00 [facility] GREEN TEA Allergy Active High Other 03-29 00:00: 00 [facility] LEVETIRA CETAM Allergy Active High N\\T\\V 03-29 00:00: 00 [facility] Green Tea Propensi ty to adverse reaction s Active 03-29 00:00: 00 Seizure like activity [facility] Levetira cetam Propensi ty to adverse reaction s Active Nausea And Vomiting 03-29 00:00: 00 Intensifi es seizure [facility] Fluoxeti ne Propensi ty to adverse reaction s Active 03-29 00:00: 00 [facility] Green Tea Drug Allergy Active Other (See Comments) 03-29 00:00: 00 Seizure like activity [facility] Levetira cetam Drug Allergy Active Nausea And Vomiting 03-29 00:00: 00 Intensifi es seizure [facility] LEVETIRA CETAM DRUG INGREDI Active Other-Cmnt 11-17 00:00: 00 [facility] Levetira cetam Propensi ty to adverse reaction s Active Other - See comments 11-17 00:00: 00 Makes seizures worse [facility] Green Tea Propensi ty to adverse reaction s Active 08-02 00:00: 00 [facility] GREEN TEA Allergy Active 08-02 00:00: 00 [facility] FLUOXETI NE Allergy Active Med Rash 08-02 00:00: 00 [facility] Fluoxeti ne Propensi ty to adverse reaction s Active Rash 08-02 00:00: 00 [facility] Fluoxeti ne Propensi ty to adverse reaction s Active Unknown - See comments 03-25 00:00: 00 [facility] FLUOXETI NE DRUG INGREDI Active Unknown-Cmnt 03-25 00:00: 00 [facility] DICLOFEN AC DRUG INGREDI Active HYPERTENSION 11-20 00:00: 00 [facility] Diclofen ac Propensi ty to adverse reaction s Active Hypertension 11-20 00:00: 00 [facility] GREEN TEA DRUG INGREDI Active Med Other-Cmnt 08-10 00:00: 00 [facility] Green Tea Propensi ty to adverse reaction s to drug Active Other - See comments 08-10 00:00: 00 Seizures [facility] FLUOXETI NE HCL DRUG INGREDI Active Hives 0 03-19 00:00: 00 [facility] Fluoxeti ne Hcl Propensi ty to adverse reaction s Active Hives 03-19 00:00: 00 [facility] Family History Family Member Diagnosis Comments Start Date Stop Date Sourc e Natural mother Alcohol abuse C [facility] Natural mother Stroke [facility] Natural mother Alcohol abuse C [facility] Natural mother Cancer [facility] Natural mother Diabetes [facility] Natural mother Heart disease C [facility] Natural mother Hyperlipidemia [facility] Natural mother Kidney disease [facility] Natural mother Stroke [facility] Paternal uncle Diabetes [facility] Social History Social Habit Start Date Stop Date Quantity Comments Source History SDOH Social Connections Get Together [facility] History SDOH Social Connections Jehovah'S Witness [facility] History SDOH Social Connections Membership [facility] History SDOH Social Connections Meetings [facility] History SDOH Alcohol Frequency [facility] History SDOH Alcohol Std Drinks [facility] History SDOH Alcohol Binge [facility] History SDOH Housing Homeless Last Year [facility] Sexual orientation C [facility] History of Social function 2023-08-03 00:00:00 2023-08-03 00:00:00 [facility] Alcohol intake 2023-06-02 00:00:00 2023-06-02 00:00:00 Current drinker of alcohol (finding) [facility] Exposure to SARS-CoV-2 (event) 2023-05-18 00:00:00 2023-05-28 07:28:00 Not sure [facility] History SDOH Housing Unable to Pay - In the last 12 months, was there a time when you were not able to pay the mortgage or rent on time? 2023-05-26 00:00:00 2023-05-26 00:00:00 Yes [facility] Cigarettes smoked current (pack per day) - Reported 2023-05-26 00:00:00 2023-05-26 00:00:00 [facility] Cigarette pack-years 2023-05-26 00:00:00 2023-05-26 00:00:00 [facility] Tobacco use and exposure 2023-05-26 00:00:00 2023-05-26 00:00:00 Smokeless tobacco non-user [facility] History of tobacco use 1987-05-22 00:00:00 2023-05-22 00:00:00 Cigarette Smoker [facility] History SDOH Housing Places Lived 2023-03-30 00:00:00 2023-03-30 00:00:00 1 [facility] Alcohol Comment 2023-03-29 00:00:00 2023-03-29 00:00:00 2x a week [facility] History SDOH Social Connections Phone 2022-08-01 00:00:2022-08-01 00:00:00 5 [facility] History SDOH Social Connections Living 2022-08-01 00:00:00 2022-08-01 00:00:00 5 [facility] History SDOH Physical Activity DPW 2022-08-01 00:00:00 2022-08-01 00:00:00 0 [facility] History SDOH Physical Activity MPS 2022-08-01 00:00:00 2022-08-01 00:00:00 0 [facility] History SDOH Financial 2022-08-01 00:00:00 2022-08-01 00:00:00 3 [facility] History SDOH Food Worry 2022-08-01 00:00:00 2022-08-01 00:00:00 1 [facility] History SDOH Food Scarcity 2022-08-01 00:00:00 2022-08-01 00:00:00 1 [facility] History SDOH Transport Med 2022-08-01 00:00:00 2022-08-01 00:00:00 2 [facility] History SDOH Transport Non-Med 2022-08-01 00:00:00 2022-08-01 00:00:00 2 [facility] Education 2022-07-31 00:00:00 2022-07-31 00:00:00 14 [facility] Sex Assigned At 1970 00:00:00 1970 00:00:00 [facility] Smoking Status Start Date Stop Date Source Ex-smoker 2023-05-26 00:00:00 2023-05-26 00:00:00 C [facility] Smokes tobacco daily 2023-03-29 00:00:00 [facility] Medications Ordered Medication Name Filled Medication Name Start Date Stop Date Current Medication? Ordering Clinician Indication Dosage Frequency Signature (SIG) Comments Components Source tamsulosin (FLOMAX) 0.4 mg Cap 24 hr capsule 2022-07 00:00: 00 06-22 23:59 :00 No .4mg QD Take 1 capsule (0.4 mg total) by mouth daily for 5 days. [facility] tamsulosin (FLOMAX) 0.4 mg Cap 24 hr capsule 2022-07 00:00: 00 06-22 23:59 :00 No .4mg QD Take 1 capsule (0.4 mg total) by mouth daily for 5 days. [facility] tamsulosin (FLOMAX) 0.4 mg Cap 24 hr capsule 2022-07 00:00: 00 06-22 23:59 :00 No .4mg QD Take 1 capsule (0.4 mg total) by mouth daily for 5 days. [facility] tamsulosin (FLOMAX) 0.4 mg Cap 24 hr capsule 2022-07 00:00: 00 06-22 23:59 :00 No .4mg QD Take 1 capsule (0.4 mg total) by mouth daily for 5 days. [facility] tamsulosin (FLOMAX) 0.4 mg Cap 24 hr capsule 2022-07 00:00: 00 06-22 23:59 :00 No .4mg QD Take 1 capsule (0.4 mg total) by mouth daily for 5 days. [facility] tamsulosin (FLOMAX) 0.4 mg Cap 24 hr capsule 2022-07 00:00: 00 06-22 23:59 :00 No .4mg QD Take 1 capsule (0.4 mg total) by mouth daily for 5 days. [facility] tamsulosin (FLOMAX) 0.4 mg Cap 24 hr capsule 2022-07 00:00: 00 06-22 23:59 :00 No .4mg QD Take 1 capsule (0.4 mg total) by mouth daily for 5 days. [facility] tamsulosin (FLOMAX) 0.4 mg Cap 24 hr capsule 2022-07 00:00: 00 06-22 23:59 :00 No .4mg QD Take 1 capsule (0.4 mg total) by mouth daily for 5 days. [facility] tamsulosin (FLOMAX) 0.4 mg Cap 24 hr capsule 2022-07 00:00: 00 06-22 23:59 :00 Yes .4mg QD Take 1 capsule (0.4 mg total) by mouth daily for 5 days. [facility] tamsulosin (FLOMAX) 0.4 mg Cap 24 hr capsule 2022-07 00:00: 00 06-22 23:59 :00 Yes .4mg QD Take 1 capsule (0.4 mg total) by mouth daily for 5 days. [facility] tamsulosin (FLOMAX) 0.4 mg Cap 24 hr capsule 2022-07 00:00: 00 06-22 23:59 :00 No .4mg QD Take 1 capsule (0.4 mg total) by mouth daily for 5 days. [facility] metoprolol succinate (TOPROL-XL) 25 MG 24 hr tablet 2022-07 19:45: 32 Yes 25mg QD Take 1 tablet (25 mg total) by mouth daily. [facility] varenicline (CHANTIX) 1 mg tablet 2022-07 19:45: 32 Yes 1mg Q.5D Take 1 tablet (1 mg total) by mouth 2 (two) times daily Give with meals and with a full glass of water.. [facility] albuterol HFA (VENTOLIN HFA) 90 mcg/actuati on inhaler 2022-07 19:45: 32 Yes 1{puff} Inhale 1 puff by mouth via inhaler every 6 (six) hours as needed for Wheezing. [facility] fluticasone -umeclidin- vilanter (Trelegy Ellipta) 200-62.5-25 mcg DsDv 2022-07 19:45: 32 Yes QD Inhale by mouth via inhaler daily. [facility] atorvastati n (LIPITOR) 20 MG tablet 2022-07 19:45: 32 Yes 20mg QD Take 1 tablet (20 mg total) by mouth daily. [facility] metoprolol succinate (TOPROL-XL) 25 MG 24 hr tablet 2022-07 19:45: 32 Yes 25mg QD Take 1 tablet (25 mg total) by mouth daily. [facility] varenicline (CHANTIX) 1 mg tablet 2022-07 19:45: 32 Yes 1mg Q.5D Take 1 tablet (1 mg total) by mouth 2 (two) times daily Give with meals and with a full glass of water.. [facility] albuterol HFA (VENTOLIN HFA) 90 mcg/actuati on inhaler 2022-07 19:45: 32 Yes 1{puff} Inhale 1 puff by mouth via inhaler every 6 (six) hours as needed for Wheezing. [facility] fluticasone -umeclidin- vilanter (Trelegy Ellipta) 200-62.5-25 mcg DsDv 2022-07 19:45: 32 Yes QD Inhale by mouth via inhaler daily. [facility] atorvastati n (LIPITOR) 20 MG tablet 2022-07 19:45: 32 Yes 20mg QD Take 1 tablet (20 mg total) by mouth daily. [facility] metoprolol succinate (TOPROL-XL) 25 MG 24 hr tablet 2022-07 19:45: 32 Yes 25mg QD Take 1 tablet (25 mg total) by mouth daily. [facility] varenicline (CHANTIX) 1 mg tablet 2022-07 19:45: 32 Yes 1mg Q.5D Take 1 tablet (1 mg total) by mouth 2 (two) times daily Give with meals and with a full glass of water.. [facility] albuterol HFA (VENTOLIN HFA) 90 mcg/actuati on inhaler 2022-07 19:45: 32 Yes 1{puff} Inhale 1 puff by mouth via inhaler every 6 (six) hours as needed for Wheezing. [facility] fluticasone -umeclidin- vilanter (Trelegy Ellipta) 200-62.5-25 mcg DsDv 2022-07 19:45: 32 Yes QD Inhale by mouth via inhaler daily. [facility] atorvastati n (LIPITOR) 20 MG tablet 2022-07 19:45: 32 Yes 20mg QD Take 1 tablet (20 mg total) by mouth daily. [facility] metoprolol succinate (TOPROL-XL) 25 MG 24 hr tablet 2022-07 19:45: 32 Yes 25mg QD Take 1 tablet (25 mg total) by mouth daily. [facility] varenicline (CHANTIX) 1 mg tablet 2022-07 19:45: 32 Yes 1mg Q.5D Take 1 tablet (1 mg total) by mouth 2 (two) times daily Give with meals and with a full glass of water.. [facility] albuterol HFA (VENTOLIN HFA) 90 mcg/actuati on inhaler 2022-07 19:45: 32 Yes 1{puff} Inhale 1 puff by mouth via inhaler every 6 (six) hours as needed for Wheezing. [facility] fluticasone -umeclidin- vilanter (Trelegy Ellipta) 200-62.5-25 mcg DsDv 2022-07 19:45: 32 Yes QD Inhale by mouth via inhaler daily. [facility] atorvastati n (LIPITOR) 20 MG tablet 2022-07 19:45: 32 Yes 20mg QD Take 1 tablet (20 mg total) by mouth daily. [facility] metoprolol succinate (TOPROL-XL) 25 MG 24 hr tablet 2022-07 19:45: 32 Yes 25mg QD Take 1 tablet (25 mg total) by mouth daily. [facility] varenicline (CHANTIX) 1 mg tablet 2022-07 19:45: 32 Yes 1mg Q.5D Take 1 tablet (1 mg total) by mouth 2 (two) times daily Give with meals and with a full glass of water.. [facility] albuterol HFA (VENTOLIN HFA) 90 mcg/actuati on inhaler 2022-07 19:45: 32 Yes 1{puff} Inhale 1 puff by mouth via inhaler every 6 (six) hours as needed for Wheezing. [facility] fluticasone -umeclidin- vilanter (Trelegy Ellipta) 200-62.5-25 mcg DsDv 2022-07 19:45: 32 Yes QD Inhale by mouth via inhaler daily. [facility] atorvastati n (LIPITOR) 20 MG tablet 2022-07 19:45: 32 Yes 20mg QD Take 1 tablet (20 mg total) by mouth daily. [facility] metoprolol succinate (TOPROL-XL) 25 MG 24 hr tablet 2022-07 19:45: 32 Yes 25mg QD Take 1 tablet (25 mg total) by mouth daily. [facility] varenicline (CHANTIX) 1 mg tablet 2022-07 19:45: 32 Yes 1mg Q.5D Take 1 tablet (1 mg total) by mouth 2 (two) times daily Give with meals and with a full glass of water.. [facility] albuterol HFA (VENTOLIN HFA) 90 mcg/actuati on inhaler 2022-07 19:45: 32 Yes 1{puff} Inhale 1 puff by mouth via inhaler every 6 (six) hours as needed for Wheezing. [facility] fluticasone -umeclidin- vilanter (Trelegy Ellipta) 200-62.5-25 mcg DsDv 2022-07 19:45: 32 Yes QD Inhale by mouth via inhaler daily. [facility] atorvastati n (LIPITOR) 20 MG tablet 2022-07 19:45: 32 Yes 20mg QD Take 1 tablet (20 mg total) by mouth daily. [facility] metoprolol succinate (TOPROL-XL) 25 MG 24 hr tablet 2022-07 19:45: 32 Yes 25mg QD Take 1 tablet (25 mg total) by mouth daily. [facility] varenicline (CHANTIX) 1 mg tablet 2022-07 19:45: 32 Yes 1mg Q.5D Take 1 tablet (1 mg total) by mouth 2 (two) times daily Give with meals and with a full glass of water.. [facility] albuterol HFA (VENTOLIN HFA) 90 mcg/actuati on inhaler 2022-07 19:45: 32 Yes 1{puff} Inhale 1 puff by mouth via inhaler every 6 (six) hours as needed for Wheezing. [facility] fluticasone -umeclidin- vilanter (Trelegy Ellipta) 200-62.5-25 mcg DsDv 2022-07 19:45: 32 Yes QD Inhale by mouth via inhaler daily. [facility] atorvastati n (LIPITOR) 20 MG tablet 2022-07 19:45: 32 Yes 20mg QD Take 1 tablet (20 mg total) by mouth daily. [facility] metoprolol succinate (TOPROL-XL) 25 MG 24 hr tablet 2022-07 19:45: 32 Yes 25mg QD Take 1 tablet (25 mg total) by mouth daily. [facility] varenicline (CHANTIX) 1 mg tablet 2022-07 19:45: 32 Yes 1mg Q.5D Take 1 tablet (1 mg total) by mouth 2 (two) times daily Give with meals and with a full glass of water.. [facility] albuterol HFA (VENTOLIN HFA) 90 mcg/actuati on inhaler 2022-07 19:45: 32 Yes 1{puff} Inhale 1 puff by mouth via inhaler every 6 (six) hours as needed for Wheezing. [facility] fluticasone -umeclidin- vilanter (Trelegy Ellipta) 200-62.5-25 mcg DsDv 2022-07 19:45: 32 Yes QD Inhale by mouth via inhaler daily. [facility] atorvastati n (LIPITOR) 20 MG tablet 2022-07 19:45: 32 Yes 20mg QD Take 1 tablet (20 mg total) by mouth daily. [facility] metoprolol succinate (TOPROL-XL) 25 MG 24 hr tablet 2022-07 19:45: 32 Yes 25mg QD Take 1 tablet (25 mg total) by mouth daily. [facility] varenicline (CHANTIX) 1 mg tablet 2022-07 19:45: 32 Yes 1mg Q.5D Take 1 tablet (1 mg total) by mouth 2 (two) times daily Give with meals and with a full glass of water.. [facility] albuterol HFA (VENTOLIN HFA) 90 mcg/actuati on inhaler 2022-07 19:45: 32 Yes 1{puff} Inhale 1 puff by mouth via inhaler every 6 (six) hours as needed for Wheezing. [facility] fluticasone -umeclidin- vilanter (Trelegy Ellipta) 200-62.5-25 mcg DsDv 2022-07 19:45: 32 Yes QD Inhale by mouth via inhaler daily. [facility] atorvastati n (LIPITOR) 20 MG tablet 2022-07 19:45: 32 Yes 20mg QD Take 1 tablet (20 mg total) by mouth daily. [facility] metoprolol succinate (TOPROL-XL) 25 MG 24 hr tablet 2022-07 19:45: 32 Yes 25mg QD Take 1 tablet (25 mg total) by mouth daily. [facility] varenicline (CHANTIX) 1 mg tablet 2022-07 19:45: 32 Yes 1mg Q.5D Take 1 tablet (1 mg total) by mouth 2 (two) times daily Give with meals and with a full glass of water.. [facility] albuterol HFA (VENTOLIN HFA) 90 mcg/actuati on inhaler 2022-07 19:45: 32 Yes 1{puff} Inhale 1 puff by mouth via inhaler every 6 (six) hours as needed for Wheezing. [facility] fluticasone -umeclidin- vilanter (Trelegy Ellipta) 200-62.5-25 mcg DsDv 2022-07 19:45: 32 Yes QD Inhale by mouth via inhaler daily. [facility] atorvastati n (LIPITOR) 20 MG tablet 2022-07 19:45: 32 Yes 20mg QD Take 1 tablet (20 mg total) by mouth daily. [facility] metoprolol succinate (TOPROL-XL) 25 MG 24 hr tablet 2022-07 19:45: 32 Yes 25mg QD Take 1 tablet (25 mg total) by mouth daily. [facility] varenicline (CHANTIX) 1 mg tablet 2022-07 19:45: 32 Yes 1mg Q.5D Take 1 tablet (1 mg total) by mouth 2 (two) times daily Give with meals and with a full glass of water.. [facility] albuterol HFA (VENTOLIN HFA) 90 mcg/actuati on inhaler 2022-07 19:45: 32 Yes 1{puff} Inhale 1 puff by mouth via inhaler every 6 (six) hours as needed for Wheezing. [facility] fluticasone -umeclidin- vilanter (Trelegy Ellipta) 200-62.5-25 mcg DsDv 2022-07 19:45: 32 Yes QD Inhale by mouth via inhaler daily. [facility] atorvastati n (LIPITOR) 20 MG tablet 2022-07 19:45: 32 Yes 20mg QD Take 1 tablet (20 mg total) by mouth daily. [facility] acetaminoph en-codeine (TYLENOL #3) 300-30 mg per tablet 2022-07 18:02: 00 06-16 00:00 :00 No 1{tbl} Take 1 tablet by mouth every 4 (four) hours as needed for Pain. [facility] acetaminoph en-codeine (TYLENOL #3) 300-30 mg per tablet 2022-07 18:02: 00 06-16 00:00 :00 No 1{tbl} Take 1 tablet by mouth every 4 (four) hours as needed for Pain. [facility] acetaminoph en-codeine (TYLENOL #3) 300-30 mg per tablet 2022-07 18:02: 00 06-16 00:00 :00 No 1{tbl} Take 1 tablet by mouth every 4 (four) hours as needed for Pain. [facility] acetaminoph en-codeine (TYLENOL #3) 300-30 mg per tablet 2022-07 18:02: 00 06-16 00:00 :00 No 1{tbl} Take 1 tablet by mouth every 4 (four) hours as needed for Pain. [facility] acetaminoph en-codeine (TYLENOL #3) 300-30 mg per tablet 2022-07 18:02: 00 06-16 00:00 :00 No 1{tbl} Take 1 tablet by mouth every 4 (four) hours as needed for Pain. [facility] acetaminoph en-codeine (TYLENOL #3) 300-30 mg per tablet 2022-07 18:02: 00 06-16 00:00 :00 No 1{tbl} Take 1 tablet by mouth every 4 (four) hours as needed for Pain. [facility] acetaminoph en-codeine (TYLENOL #3) 300-30 mg per tablet 2022-07 18:02: 00 06-16 00:00 :00 No 1{tbl} Take 1 tablet by mouth every 4 (four) hours as needed for Pain. [facility] acetaminoph en-codeine (TYLENOL #3) 300-30 mg per tablet 2022-07 18:02: 00 06-16 00:00 :00 No 1{tbl} Take 1 tablet by mouth every 4 (four) hours as needed for Pain. [facility] acetaminoph en-codeine (TYLENOL #3) 300-30 mg per tablet 2022-07 18:02: 00 06-16 00:00 :00 No 1{tbl} Take 1 tablet by mouth every 4 (four) hours as needed for Pain. [facility] acetaminoph en-codeine (TYLENOL #3) 300-30 mg per tablet 2022-07 18:02: 00 06-16 00:00 :00 No 1{tbl} Take 1 tablet by mouth every 4 (four) hours as needed for Pain. [facility] acetaminoph en-codeine (TYLENOL #3) 300-30 mg per tablet 2022-07 18:02: 00 06-16 00:00 :00 No 1{tbl} Take 1 tablet by mouth every 4 (four) hours as needed for Pain. [facility] DULoxetine (CYMBALTA) 30 MG capsule 2022-07 00:00: 00 09-14 23:59 :00 Yes 30mg QD Take 1 capsule (30 mg total) by mouth daily for 90 days. [facility] DULoxetine (CYMBALTA) 30 MG capsule 2022-07 00:00: 00 09-14 23:59 :00 Yes 30mg QD Take 1 capsule (30 mg total) by mouth daily for 90 days. [facility] DULoxetine (CYMBALTA) 30 MG capsule 2022-07 00:00: 00 09-14 23:59 :00 Yes 30mg QD Take 1 capsule (30 mg total) by mouth daily for 90 days. [facility] DULoxetine (CYMBALTA) 30 MG capsule 2022-07 00:00: 00 09-14 23:59 :00 Yes 30mg QD Take 1 capsule (30 mg total) by mouth daily for 90 days. [facility] DULoxetine (CYMBALTA) 30 MG capsule 2022-07 00:00: 00 09-14 23:59 :00 Yes 30mg QD Take 1 capsule (30 mg total) by mouth daily for 90 days. [facility] DULoxetine (CYMBALTA) 30 MG capsule 2022-07 00:00: 00 09-14 23:59 :00 Yes 30mg QD Take 1 capsule (30 mg total) by mouth daily for 90 days. [facility] DULoxetine (CYMBALTA) 30 MG capsule 2022-07 00:00: 00 09-14 23:59 :00 Yes 30mg QD Take 1 capsule (30 mg total) by mouth daily for 90 days. [facility] DULoxetine (CYMBALTA) 30 MG capsule 2022-07 00:00: 00 09-14 23:59 :00 Yes 30mg QD Take 1 capsule (30 mg total) by mouth daily for 90 days. [facility] DULoxetine (CYMBALTA) 30 MG capsule 2022-07 00:00: 00 09-14 23:59 :00 Yes 30mg QD Take 1 capsule (30 mg total) by mouth daily for 90 days. [facility] DULoxetine (CYMBALTA) 30 MG capsule 2022-07 00:00: 00 09-14 23:59 :00 Yes 30mg QD Take 1 capsule (30 mg total) by mouth daily for 90 days. [facility] DULoxetine (CYMBALTA) 30 MG capsule 2022-07 00:00: 00 09-14 23:59 :00 Yes 30mg QD Take 1 capsule (30 mg total) by mouth daily for 90 days. [facility] metroNIDAZO LE (FLAGYL) 500 MG tablet 2022-07 00:00: 00 07-04 23:59 :00 No 500mg Take 1 tablet (500 mg total) by mouth every 8 (eight) hours for 18 days. [facility] ciprofloxac in HCl (CIPRO) 500 MG tablet 2022-07 00:00: 00 07-04 23:59 :00 No 500mg Q.5D Take 1 tablet (500 mg total) by mouth 2 (two) times daily for 18 days. [facility] metroNIDAZO LE (FLAGYL) 500 MG tablet 2022-07 00:00: 00 07-04 23:59 :00 No 500mg Take 1 tablet (500 mg total) by mouth every 8 (eight) hours for 18 days. [facility] ciprofloxac in HCl (CIPRO) 500 MG tablet 2022-07 00:00: 00 07-04 23:59 :00 No 500mg Q.5D Take 1 tablet (500 mg total) by mouth 2 (two) times daily for 18 days. [facility] metroNIDAZO LE (FLAGYL) 500 MG tablet 2022-07 00:00: 00 07-04 23:59 :00 No 500mg Take 1 tablet (500 mg total) by mouth every 8 (eight) hours for 18 days. [facility] ciprofloxac in HCl (CIPRO) 500 MG tablet 2022-07 00:00: 00 07-04 23:59 :00 No 500mg Q.5D Take 1 tablet (500 mg total) by mouth 2 (two) times daily for 18 days. [facility] metroNIDAZO LE (FLAGYL) 500 MG tablet 2022-07 00:00: 00 07-04 23:59 :00 No 500mg Take 1 tablet (500 mg total) by mouth every 8 (eight) hours for 18 days. [facility] ciprofloxac in HCl (CIPRO) 500 MG tablet 2022-07 00:00: 00 07-04 23:59 :00 No 500mg Q.5D Take 1 tablet (500 mg total) by mouth 2 (two) times daily for 18 days. [facility] metroNIDAZO LE (FLAGYL) 500 MG tablet 2022-07 00:00: 00 07-04 23:59 :00 No 500mg Take 1 tablet (500 mg total) by mouth every 8 (eight) hours for 18 days. [facility] ciprofloxac in HCl (CIPRO) 500 MG tablet 2022-07 00:00: 00 07-04 23:59 :00 No 500mg Q.5D Take 1 tablet (500 mg total) by mouth 2 (two) times daily for 18 days. [facility] metroNIDAZO LE (FLAGYL) 500 MG tablet 2022-07 00:00: 00 07-04 23:59 :00 No 500mg Take 1 tablet (500 mg total) by mouth every 8 (eight) hours for 18 days. [facility] ciprofloxac in HCl (CIPRO) 500 MG tablet 2022-07 00:00: 00 07-04 23:59 :00 No 500mg Q.5D Take 1 tablet (500 mg total) by mouth 2 (two) times daily for 18 days. [facility] metroNIDAZO LE (FLAGYL) 500 MG tablet 2022-07 00:00: 00 07-04 23:59 :00 No 500mg Take 1 tablet (500 mg total) by mouth every 8 (eight) hours for 18 days. [facility] ciprofloxac in HCl (CIPRO) 500 MG tablet 2022-07 00:00: 00 07-04 23:59 :00 No 500mg Q.5D Take 1 tablet (500 mg total) by mouth 2 (two) times daily for 18 days. [facility] metroNIDAZO LE (FLAGYL) 500 MG tablet 2022-07 00:00: 00 07-04 23:59 :00 No 500mg Take 1 tablet (500 mg total) by mouth every 8 (eight) hours for 18 days. [facility] ciprofloxac in HCl (CIPRO) 500 MG tablet 2022-07 00:00: 00 07-04 23:59 :00 No 500mg Q.5D Take 1 tablet (500 mg total) by mouth 2 (two) times daily for 18 days. [facility] metroNIDAZO LE (FLAGYL) 500 MG tablet 2022-07 00:00: 00 07-04 23:59 :00 Yes 500mg Take 1 tablet (500 mg total) by mouth every 8 (eight) hours for 18 days. [facility] ciprofloxac in HCl (CIPRO) 500 MG tablet 2022-07 00:00: 00 07-04 23:59 :00 Yes 500mg Q.5D Take 1 tablet (500 mg total) by mouth 2 (two) times daily for 18 days. [facility] metroNIDAZO LE (FLAGYL) 500 MG tablet 2022-07 00:00: 00 07-04 23:59 :00 Yes 500mg Take 1 tablet (500 mg total) by mouth every 8 (eight) hours for 18 days. [facility] ciprofloxac in HCl (CIPRO) 500 MG tablet 2022-07 00:00: 00 07-04 23:59 :00 Yes 500mg Q.5D Take 1 tablet (500 mg total) by mouth 2 (two) times daily for 18 days. [facility] metroNIDAZO LE (FLAGYL) 500 MG tablet 2022-07 00:00: 00 07-04 23:59 :00 No 500mg Take 1 tablet (500 mg total) by mouth every 8 (eight) hours for 18 days. [facility] ciprofloxac in HCl (CIPRO) 500 MG tablet 2022-07 00:00: 00 07-04 23:59 :00 No 500mg Q.5D Take 1 tablet (500 mg total) by mouth 2 (two) times daily for 18 days. [facility] cyclobenzap rine (FLEXERIL) 10 MG tablet 2022-07 00:00: 00 06-26 23:59 :00 No 10mg Q.[id number] 3D Take 1 tablet (10 mg total) by mouth 3 (three) times daily for 10 days. [facility] oxyCODONE (OXY-IR) 10 mg tablet 2022-07 00:00: 00 06-26 23:59 :00 No 10mg Take 1 tablet (10 mg total) by mouth every 8 (eight) hours as needed for up to 10 days. Max Daily Amount: 30 mg [facility] cyclobenzap rine (FLEXERIL) 10 MG tablet 2022-07 00:00: 00 06-26 23:59 :00 No 10mg Q.[id number] 3D Take 1 tablet (10 mg total) by mouth 3 (three) times daily for 10 days. [facility] oxyCODONE (OXY-IR) 10 mg tablet 2022-07 00:00: 00 06-26 23:59 :00 No 10mg Take 1 tablet (10 mg total) by mouth every 8 (eight) hours as needed for up to 10 days. Max Daily Amount: 30 mg [facility] cyclobenzap rine (FLEXERIL) 10 MG tablet 2022-07 00:00: 00 06-26 23:59 :00 No 10mg Q.[id number] 3D Take 1 tablet (10 mg total) by mouth 3 (three) times daily for 10 days. [facility] oxyCODONE (OXY-IR) 10 mg tablet 2022-07 00:00: 00 06-26 23:59 :00 No 10mg Take 1 tablet (10 mg total) by mouth every 8 (eight) hours as needed for up to 10 days. Max Daily Amount: 30 mg [facility] cyclobenzap rine (FLEXERIL) 10 MG tablet 2022-07 00:00: 00 06-26 23:59 :00 No 10mg Q.[id number] 3D Take 1 tablet (10 mg total) by mouth 3 (three) times daily for 10 days. [facility] oxyCODONE (OXY-IR) 10 mg tablet 2022-07 00:00: 00 06-26 23:59 :00 No 10mg Take 1 tablet (10 mg total) by mouth every 8 (eight) hours as needed for up to 10 days. Max Daily Amount: 30 mg [facility] cyclobenzap rine (FLEXERIL) 10 MG tablet 2022-07 00:00: 00 06-26 23:59 :00 No 10mg Q.[id number] 3D Take 1 tablet (10 mg total) by mouth 3 (three) times daily for 10 days. [facility] oxyCODONE (OXY-IR) 10 mg tablet 2022-07 00:00: 00 06-26 23:59 :00 No 10mg Take 1 tablet (10 mg total) by mouth every 8 (eight) hours as needed for up to 10 days. Max Daily Amount: 30 mg [facility] cyclobenzap rine (FLEXERIL) 10 MG tablet 2022-07 00:00: 00 06-26 23:59 :00 No 10mg Q.[id number] 3D Take 1 tablet (10 mg total) by mouth 3 (three) times daily for 10 days. [facility] oxyCODONE (OXY-IR) 10 mg tablet 2022-07 00:00: 00 06-26 23:59 :00 No 10mg Take 1 tablet (10 mg total) by mouth every 8 (eight) hours as needed for up to 10 days. Max Daily Amount: 30 mg [facility] cyclobenzap rine (FLEXERIL) 10 MG tablet 2022-07 00:00: 00 06-26 23:59 :00 No 10mg Q.15845736 [id number] 3D Take 1 tablet (10 mg total) by mouth 3 (three) times daily for 10 days. [facility] oxyCODONE (OXY-IR) 10 mg tablet 2022-07 00:00: 00 06-26 23:59 :00 No 10mg Take 1 tablet (10 mg total) by mouth every 8 (eight) hours as needed for up to 10 days. Max Daily Amount: 30 mg [facility] cyclobenzap rine (FLEXERIL) 10 MG tablet 2022-07 00:00: 00 06-26 23:59 :00 No 10mg Q.[id number] 3D Take 1 tablet (10 mg total) by mouth 3 (three) times daily for 10 days. [facility] oxyCODONE (OXY-IR) 10 mg tablet 2022-07 00:00: 00 06-26 23:59 :00 No 10mg Take 1 tablet (10 mg total) by mouth every 8 (eight) hours as needed for up to 10 days. Max Daily Amount: 30 mg [facility] cyclobenzap rine (FLEXERIL) 10 MG tablet 2022-07 00:00: 00 06-26 23:59 :00 Yes 10mg Q.[id number] 3D Take 1 tablet (10 mg total) by mouth 3 (three) times daily for 10 days. [facility] oxyCODONE (OXY-IR) 10 mg tablet 2022-07 00:00: 00 06-26 23:59 :00 Yes 10mg Take 1 tablet (10 mg total) by mouth every 8 (eight) hours as needed for up to 10 days. Max Daily Amount: 30 mg [facility] cyclobenzap rine (FLEXERIL) 10 MG tablet 2022-07 00:00: 00 06-26 23:59 :00 Yes 10mg Q.[id number] 3D Take 1 tablet (10 mg total) by mouth 3 (three) times daily for 10 days. [facility] oxyCODONE (OXY-IR) 10 mg tablet 2022-07 00:00: 00 06-26 23:59 :00 Yes 10mg Take 1 tablet (10 mg total) by mouth every 8 (eight) hours as needed for up to 10 days. Max Daily Amount: 30 mg [facility] cyclobenzap rine (FLEXERIL) 10 MG tablet 2022-07 00:00: 00 06-26 23:59 :00 No 10mg Q.[id number] 3D Take 1 tablet (10 mg total) by mouth 3 (three) times daily for 10 days. [facility] oxyCODONE (OXY-IR) 10 mg tablet 2022-07 00:00: 00 06-26 23:59 :00 No 10mg Take 1 tablet (10 mg total) by mouth every 8 (eight) hours as needed for up to 10 days. Max Daily Amount: 30 mg [facility] nystatin (MYCOSTATIN ) 100,000 unit/mL suspension 2022-07 00:00: 00 06-21 23:59 :00 No [id number] Q.25D Take 5 mLs (500,000 Units total) by mouth 4 (four) times daily for 5 days. [facility] nystatin (MYCOSTATIN ) 100,000 unit/mL suspension 2022-07 00:00: 00 06-21 23:59 :00 No [id number] Q.25D Take 5 mLs (500,000 Units total) by mouth 4 (four) times daily for 5 days. [facility] nystatin (MYCOSTATIN ) 100,000 unit/mL suspension 2022-07 00:00: 00 06-21 23:59 :00 No [id number] Q.25D Take 5 mLs (500,000 Units total) by mouth 4 (four) times daily for 5 days. [facility] nystatin (MYCOSTATIN ) 100,000 unit/mL suspension 2022-07 00:00: 00 06-21 23:59 :00 No [id number] Q.25D Take 5 mLs (500,000 Units total) by mouth 4 (four) times daily for 5 days. [facility] nystatin (MYCOSTATIN ) 100,000 unit/mL suspension 2022-07 00:00: 00 06-21 23:59 :00 No [id number] Q.25D Take 5 mLs (500,000 Units total) by mouth 4 (four) times daily for 5 days. [facility] nystatin (MYCOSTATIN ) 100,000 unit/mL suspension 2022-07 00:00: 00 06-21 23:59 :00 No [id number] Q.25D Take 5 mLs (500,000 Units total) by mouth 4 (four) times daily for 5 days. [facility] nystatin (MYCOSTATIN ) 100,000 unit/mL suspension 2022-07 00:00: 00 06-21 23:59 :00 No [id number] Q.25D Take 5 mLs (500,000 Units total) by mouth 4 (four) times daily for 5 days. [facility] nystatin (MYCOSTATIN ) 100,000 unit/mL suspension 2022-07 00:00: 00 06-21 23:59 :00 No [id number] Q.25D Take 5 mLs (500,000 Units total) by mouth 4 (four) times daily for 5 days. [facility] nystatin (MYCOSTATIN ) 100,000 unit/mL suspension 2022-07 00:00: 00 06-21 23:59 :00 Yes [id number] Q.25D Take 5 mLs (500,000 Units total) by mouth 4 (four) times daily for 5 days. [facility] nystatin (MYCOSTATIN ) 100,000 unit/mL suspension 2022-07 00:00: 00 06-21 23:59 :00 Yes [id number] Q.25D Take 5 mLs (500,000 Units total) by mouth 4 (four) times daily for 5 days. [facility] nystatin (MYCOSTATIN ) 100,000 unit/mL suspension 2022-07 00:00: 00 06-21 23:59 :00 No [id number] Q.25D Take 5 mLs (500,000 Units total) by mouth 4 (four) times daily for 5 days. [facility] dexAMETHaso ne (DECADRON) 2 MG tablet 2022-07 00:00: 00 06-08 23:59 :00 No 1mg Take 0.5 tablets (1 mg total) by mouth 2 (two) times daily with breakfast and dinner for 2 days. [facility] dexAMETHaso ne (DECADRON) 2 MG tablet 2022-07 00:00: 00 06-08 23:59 :00 No 1mg Take 0.5 tablets (1 mg total) by mouth 2 (two) times daily with breakfast and dinner for 2 days. [facility] dexAMETHaso ne (DECADRON) 2 MG tablet 2022-07 00:00: 00 06-08 23:59 :00 No 1mg Take 0.5 tablets (1 mg total) by mouth 2 (two) times daily with breakfast and dinner for 2 days. [facility] dexAMETHaso ne (DECADRON) 2 MG tablet 2022-07 00:00: 00 06-08 23:59 :00 No 1mg Take 0.5 tablets (1 mg total) by mouth 2 (two) times daily with breakfast and dinner for 2 days. [facility] dexAMETHaso ne (DECADRON) 2 MG tablet 2022-07 00:00: 00 06-08 23:59 :00 No 1mg Take 0.5 tablets (1 mg total) by mouth 2 (two) times daily with breakfast and dinner for 2 days. [facility] dexAMETHaso ne (DECADRON) 2 MG tablet 2022-07 00:00: 00 06-08 23:59 :00 No 1mg Take 0.5 tablets (1 mg total) by mouth 2 (two) times daily with breakfast and dinner for 2 days. [facility] dexAMETHaso ne (DECADRON) 2 MG tablet 2022-07 00:00: 00 06-08 23:59 :00 No 1mg Take 0.5 tablets (1 mg total) by mouth 2 (two) times daily with breakfast and dinner for 2 days. [facility] dexAMETHaso ne (DECADRON) 2 MG tablet 2022-07 00:00: 00 06-08 23:59 :00 No 1mg Take 0.5 tablets (1 mg total) by mouth 2 (two) times daily with breakfast and dinner for 2 days. [facility] dexAMETHaso ne (DECADRON) 2 MG tablet 2022-07 00:00: 00 06-08 23:59 :00 Yes 1mg Take 0.5 tablets (1 mg total) by mouth 2 (two) times daily with breakfast and dinner for 2 days. [facility] dexAMETHaso ne (DECADRON) 2 MG tablet 2022-07 00:00: 00 06-08 23:59 :00 Yes 1mg Take 0.5 tablets (1 mg total) by mouth 2 (two) times daily with breakfast and dinner for 2 days. [facility] dexAMETHaso ne (DECADRON) 2 MG tablet 2022-07 00:00: 00 06-08 23:59 :00 No 1mg Take 0.5 tablets (1 mg total) by mouth 2 (two) times daily with breakfast and dinner for 2 days. [facility] dexAMETHaso ne (DECADRON) 2 MG tablet 2022-07 00:00: 00 06-08 23:59 :00 No 1mg Take 0.5 tablets (1 mg total) by mouth 2 (two) times daily with breakfast and dinner for 2 days. [facility] dexAMETHaso ne (DECADRON) 2 MG tablet 2022-07 00:00: 00 06-08 23:59 :00 No 1mg Take 0.5 tablets (1 mg total) by mouth 2 (two) times daily with breakfast and dinner for 2 days. [facility] dexAMETHaso ne (DECADRON) 2 MG tablet 2022-07 00:00: 00 06-08 23:59 :00 No 1mg Take 0.5 tablets (1 mg total) by mouth 2 (two) times daily with breakfast and dinner for 2 days. [facility] dexAMETHaso ne (DECADRON) 2 MG tablet 2022-07 00:00: 00 06-06 23:59 :00 No 2mg Take 1 tablet (2 mg total) by mouth 2 (two) times daily with breakfast and dinner for 1 day. [facility] dexAMETHaso ne (DECADRON) 2 MG tablet 2022-07 00:00: 00 06-06 23:59 :00 No 2mg Take 1 tablet (2 mg total) by mouth 2 (two) times daily with breakfast and dinner for 1 day. [facility] dexAMETHaso ne (DECADRON) 2 MG tablet 2022-07 00:00: 00 06-06 23:59 :00 No 2mg Take 1 tablet (2 mg total) by mouth 2 (two) times daily with breakfast and dinner for 1 day. [facility] dexAMETHaso ne (DECADRON) 2 MG tablet 2022-07 00:00: 00 06-06 23:59 :00 No 2mg Take 1 tablet (2 mg total) by mouth 2 (two) times daily with breakfast and dinner for 1 day. [facility] dexAMETHaso ne (DECADRON) 2 MG tablet 2022-07 00:00: 00 06-06 23:59 :00 No 2mg Take 1 tablet (2 mg total) by mouth 2 (two) times daily with breakfast and dinner for 1 day. [facility] dexAMETHaso ne (DECADRON) 2 MG tablet 2022-07 00:00: 00 06-06 23:59 :00 No 2mg Take 1 tablet (2 mg total) by mouth 2 (two) times daily with breakfast and dinner for 1 day. [facility] dexAMETHaso ne (DECADRON) 2 MG tablet 2022-07 00:00: 00 06-06 23:59 :00 No 2mg Take 1 tablet (2 mg total) by mouth 2 (two) times daily with breakfast and dinner for 1 day. [facility] dexAMETHaso ne (DECADRON) 2 MG tablet 2022-07 00:00: 00 06-06 23:59 :00 No 2mg Take 1 tablet (2 mg total) by mouth 2 (two) times daily with breakfast and dinner for 1 day. [facility] dexAMETHaso ne (DECADRON) 2 MG tablet 2022-07 00:00: 00 06-06 23:59 :00 Yes 2mg Take 1 tablet (2 mg total) by mouth 2 (two) times daily with breakfast and dinner for 1 day. [facility] dexAMETHaso ne (DECADRON) 2 MG tablet 2022-07 00:00: 00 06-06 23:59 :00 Yes 2mg Take 1 tablet (2 mg total) by mouth 2 (two) times daily with breakfast and dinner for 1 day. [facility] dexAMETHaso ne (DECADRON) 2 MG tablet 2022-07 00:00: 00 06-06 23:59 :00 No 2mg Take 1 tablet (2 mg total) by mouth 2 (two) times daily with breakfast and dinner for 1 day. [facility] dexAMETHaso ne (DECADRON) 2 MG tablet 2022-07 00:00: 00 06-06 23:59 :00 No 2mg Take 1 tablet (2 mg total) by mouth 2 (two) times daily with breakfast and dinner for 1 day. [facility] dexAMETHaso ne (DECADRON) 2 MG tablet 2022-07 00:00: 00 06-06 23:59 :00 No 2mg Take 1 tablet (2 mg total) by mouth 2 (two) times daily with breakfast and dinner for 1 day. [facility] dexAMETHaso ne (DECADRON) 2 MG tablet 2022-07 00:00: 00 06-06 23:59 :00 No 2mg Take 1 tablet (2 mg total) by mouth 2 (two) times daily with breakfast and dinner for 1 day. [facility] metoprolol succinate (TOPROL-XL) 25 MG 24 hr tablet 2022-07 17:44: 21 Yes 25mg QD Take 1 tablet (25 mg total) by mouth daily. [facility] varenicline (CHANTIX) 1 mg tablet 2022-07 17:44: 21 Yes 1mg Q.5D Take 1 tablet (1 mg total) by mouth 2 (two) times daily Give with meals and with a full glass of water.. [facility] albuterol HFA (VENTOLIN HFA) 90 mcg/actuati on inhaler 2022-07 17:44: 21 Yes 1{puff} Inhale 1 puff by mouth via inhaler every 6 (six) hours as needed for Wheezing. [facility] fluticasone -umeclidin- vilanter (Trelegy Ellipta) 200-62.5-25 mcg DsDv 2022-07 17:44: 21 Yes QD Inhale by mouth via inhaler daily. [facility] atorvastati n (LIPITOR) 20 MG tablet 2022-07 17:44: 21 Yes 20mg QD Take 1 tablet (20 mg total) by mouth daily. [facility] acetaminoph en-codeine (TYLENOL #3) 300-30 mg per tablet 2022-07 17:44: 21 Yes 1{tbl} Take 1 tablet by mouth every 4 (four) hours as needed for Pain. [facility] metoprolol succinate (TOPROL-XL) 25 MG 24 hr tablet 2022-07 17:44: 21 Yes 25mg QD Take 1 tablet (25 mg total) by mouth daily. [facility] varenicline (CHANTIX) 1 mg tablet 2022-07 17:44: 21 Yes 1mg Q.5D Take 1 tablet (1 mg total) by mouth 2 (two) times daily Give with meals and with a full glass of water.. [facility] albuterol HFA (VENTOLIN HFA) 90 mcg/actuati on inhaler 2022-07 17:44: 21 Yes 1{puff} Inhale 1 puff by mouth via inhaler every 6 (six) hours as needed for Wheezing. [facility] fluticasone -umeclidin- vilanter (Trelegy Ellipta) 200-62.5-25 mcg DsDv 2022-07 17:44: 21 Yes QD Inhale by mouth via inhaler daily. [facility] atorvastati n (LIPITOR) 20 MG tablet 2022-07 17:44: 21 Yes 20mg QD Take 1 tablet (20 mg total) by mouth daily. [facility] acetaminoph en-codeine (TYLENOL #3) 300-30 mg per tablet 2022-07 17:44: 21 Yes 1{tbl} Take 1 tablet by mouth every 4 (four) hours as needed for Pain. [facility] metoprolol succinate (TOPROL-XL) 25 MG 24 hr tablet 2022-07 17:44: 21 Yes 25mg QD Take 1 tablet (25 mg total) by mouth daily. [facility] varenicline (CHANTIX) 1 mg tablet 2022-07 17:44: 21 Yes 1mg Q.5D Take 1 tablet (1 mg total) by mouth 2 (two) times daily Give with meals and with a full glass of water.. [facility] albuterol HFA (VENTOLIN HFA) 90 mcg/actuati on inhaler 2022-07 17:44: 21 Yes 1{puff} Inhale 1 puff by mouth via inhaler every 6 (six) hours as needed for Wheezing. [facility] fluticasone -umeclidin- vilanter (Trelegy Ellipta) 200-62.5-25 mcg DsDv 2022-07 17:44: 21 Yes QD Inhale by mouth via inhaler daily. [facility] atorvastati n (LIPITOR) 20 MG tablet 2022-07 17:44: 21 Yes 20mg QD Take 1 tablet (20 mg total) by mouth daily. [facility] acetaminoph en-codeine (TYLENOL #3) 300-30 mg per tablet 2022-07 17:44: 21 Yes 1{tbl} Take 1 tablet by mouth every 4 (four) hours as needed for Pain. [facility] senna (SENOKOT) 8.6 mg tablet 2022-07 00:00: 00 06-18 23:59 :00 No 17.2mg Q.5D Take 2 tablets (17.2 mg total) by mouth 2 (two) times daily for 14 days. [facility] senna (SENOKOT) 8.6 mg tablet 2022-07 00:00: 00 06-18 23:59 :00 No 17.2mg Q.5D Take 2 tablets (17.2 mg total) by mouth 2 (two) times daily for 14 days. [facility] senna (SENOKOT) 8.6 mg tablet 2022-07 00:00: 00 06-18 23:59 :00 No 17.2mg Q.5D Take 2 tablets (17.2 mg total) by mouth 2 (two) times daily for 14 days. [facility] senna (SENOKOT) 8.6 mg tablet 2022-07 00:00: 00 06-18 23:59 :00 No 17.2mg Q.5D Take 2 tablets (17.2 mg total) by mouth 2 (two) times daily for 14 days. [facility] senna (SENOKOT) 8.6 mg tablet 2022-07 00:00: 00 06-18 23:59 :00 No 17.2mg Q.5D Take 2 tablets (17.2 mg total) by mouth 2 (two) times daily for 14 days. [facility] senna (SENOKOT) 8.6 mg tablet 2022-07 00:00: 00 06-18 23:59 :00 No 17.2mg Q.5D Take 2 tablets (17.2 mg total) by mouth 2 (two) times daily for 14 days. [facility] senna (SENOKOT) 8.6 mg tablet 2022-07 00:00: 00 06-18 23:59 :00 No 17.2mg Q.5D Take 2 tablets (17.2 mg total) by mouth 2 (two) times daily for 14 days. [facility] senna (SENOKOT) 8.6 mg tablet 2022-07 00:00: 00 06-18 23:59 :00 No 17.2mg Q.5D Take 2 tablets (17.2 mg total) by mouth 2 (two) times daily for 14 days. [facility] senna (SENOKOT) 8.6 mg tablet 2022-07 00:00: 00 06-18 23:59 :00 Yes 17.2mg Q.5D Take 2 tablets (17.2 mg total) by mouth 2 (two) times daily for 14 days. [facility] senna (SENOKOT) 8.6 mg tablet 2022-07 00:00: 00 06-18 23:59 :00 Yes 17.2mg Q.5D Take 2 tablets (17.2 mg total) by mouth 2 (two) times daily for 14 days. [facility] senna (SENOKOT) 8.6 mg tablet 2022-07 00:00: 00 06-18 23:59 :00 Yes 17.2mg Q.5D Take 2 tablets (17.2 mg total) by mouth 2 (two) times daily for 14 days. [facility] senna (SENOKOT) 8.6 mg tablet 2022-07 00:00: 00 06-18 23:59 :00 Yes 17.2mg Q.5D Take 2 tablets (17.2 mg total) by mouth 2 (two) times daily for 14 days. [facility] senna (SENOKOT) 8.6 mg tablet 2022-07 00:00: 00 06-18 23:59 :00 No 17.2mg Q.5D Take 2 tablets (17.2 mg total) by mouth 2 (two) times daily for 14 days. [facility] senna (SENOKOT) 8.6 mg tablet 2022-07 00:00: 00 06-18 23:59 :00 No 17.2mg Q.5D Take 2 tablets (17.2 mg total) by mouth 2 (two) times daily for 14 days. [facility] cyclobenzap rine (FLEXERIL) 10 MG tablet 2022-07 00:00: 00 06-16 00:00 :00 No 10mg Q.[id number] 3D Take 1 tablet (10 mg total) by mouth 3 (three) times daily for 10 days. [facility] methocarbam oL (ROBAXIN) 500 MG tablet 2022-07 00:00: 00 06-16 00:00 :00 No 500mg Q.25D Take 1 tablet (500 mg total) by mouth 4 (four) times daily for 10 days. [facility] cyclobenzap rine (FLEXERIL) 10 MG tablet 2022-07 00:00: 00 06-16 00:00 :00 No 10mg Q.25004814 [id number] 3D Take 1 tablet (10 mg total) by mouth 3 (three) times daily for 10 days. [facility] methocarbam oL (ROBAXIN) 500 MG tablet 2022-07 00:00: 00 06-16 00:00 :00 No 500mg Q.25D Take 1 tablet (500 mg total) by mouth 4 (four) times daily for 10 days. [facility] cyclobenzap rine (FLEXERIL) 10 MG tablet 2022-07 00:00: 00 06-16 00:00 :00 No 10mg Q.[id number] 3D Take 1 tablet (10 mg total) by mouth 3 (three) times daily for 10 days. [facility] methocarbam oL (ROBAXIN) 500 MG tablet 2022-07 00:00: 00 06-16 00:00 :00 No 500mg Q.25D Take 1 tablet (500 mg total) by mouth 4 (four) times daily for 10 days. [facility] cyclobenzap rine (FLEXERIL) 10 MG tablet 2022-07 00:00: 00 06-16 00:00 :00 No 10mg Q.57294370 [id number] 3D Take 1 tablet (10 mg total) by mouth 3 (three) times daily for 10 days. [facility] methocarbam oL (ROBAXIN) 500 MG tablet 2022-07 00:00: 00 06-16 00:00 :00 No 500mg Q.25D Take 1 tablet (500 mg total) by mouth 4 (four) times daily for 10 days. [facility] cyclobenzap rine (FLEXERIL) 10 MG tablet 2022-07 00:00: 00 06-16 00:00 :00 No 10mg Q.14010458 [id number] 3D Take 1 tablet (10 mg total) by mouth 3 (three) times daily for 10 days. [facility] methocarbam oL (ROBAXIN) 500 MG tablet 2022-07 00:00: 00 06-16 00:00 :00 No 500mg Q.25D Take 1 tablet (500 mg total) by mouth 4 (four) times daily for 10 days. [facility] cyclobenzap rine (FLEXERIL) 10 MG tablet 2022-07 00:00: 00 06-16 00:00 :00 No 10mg Q.68620029 [id number] 3D Take 1 tablet (10 mg total) by mouth 3 (three) times daily for 10 days. [facility] methocarbam oL (ROBAXIN) 500 MG tablet 2022-07 00:00: 00 06-16 00:00 :00 No 500mg Q.25D Take 1 tablet (500 mg total) by mouth 4 (four) times daily for 10 days. [facility] cyclobenzap rine (FLEXERIL) 10 MG tablet 2022-07 00:00: 00 06-16 00:00 :00 No 10mg Q.06559238 [id number] 3D Take 1 tablet (10 mg total) by mouth 3 (three) times daily for 10 days. [facility] methocarbam oL (ROBAXIN) 500 MG tablet 2022-07 00:00: 00 06-16 00:00 :00 No 500mg Q.25D Take 1 tablet (500 mg total) by mouth 4 (four) times daily for 10 days. [facility] cyclobenzap rine (FLEXERIL) 10 MG tablet 2022-07 00:00: 00 06-16 00:00 :00 No 10mg Q.10704389 [id number] 3D Take 1 tablet (10 mg total) by mouth 3 (three) times daily for 10 days. [facility] methocarbam oL (ROBAXIN) 500 MG tablet 2022-07 00:00: 00 06-16 00:00 :00 No 500mg Q.25D Take 1 tablet (500 mg total) by mouth 4 (four) times daily for 10 days. [facility] cyclobenzap rine (FLEXERIL) 10 MG tablet 2022-07 00:00: 00 06-16 00:00 :00 No 10mg Q.22744374 [id number] 3D Take 1 tablet (10 mg total) by mouth 3 (three) times daily for 10 days. [facility] methocarbam oL (ROBAXIN) 500 MG tablet 2022-07 00:00: 00 06-16 00:00 :00 No 500mg Q.25D Take 1 tablet (500 mg total) by mouth 4 (four) times daily for 10 days. [facility] cyclobenzap rine (FLEXERIL) 10 MG tablet 2022-07 00:00: 00 06-16 00:00 :00 No 10mg Q.49238490 [id number] 3D Take 1 tablet (10 mg total) by mouth 3 (three) times daily for 10 days. [facility] methocarbam oL (ROBAXIN) 500 MG tablet 2022-07 00:00: 00 06-16 00:00 :00 No 500mg Q.25D Take 1 tablet (500 mg total) by mouth 4 (four) times daily for 10 days. [facility] cyclobenzap rine (FLEXERIL) 10 MG tablet 2022-07 00:00: 00 06-16 00:00 :00 No 10mg Q.15719163 [id number] 3D Take 1 tablet (10 mg total) by mouth 3 (three) times daily for 10 days. [facility] methocarbam oL (ROBAXIN) 500 MG tablet 2022-07 00:00: 00 06-16 00:00 :00 No 500mg Q.25D Take 1 tablet (500 mg total) by mouth 4 (four) times daily for 10 days. [facility] cyclobenzap rine (FLEXERIL) 10 MG tablet 2022-07 00:00: 00 06-14 23:59 :00 Yes 10mg Q.17075496 [id number] 3D Take 1 tablet (10 mg total) by mouth 3 (three) times daily for 10 days. [facility] methocarbam oL (ROBAXIN) 500 MG tablet 2022-07 00:00: 00 06-14 23:59 :00 Yes 500mg Q.25D Take 1 tablet (500 mg total) by mouth 4 (four) times daily for 10 days. [facility] cyclobenzap rine (FLEXERIL) 10 MG tablet 2022-07 00:00: 00 06-14 23:59 :00 Yes 10mg Q.14838946 [id number] 3D Take 1 tablet (10 mg total) by mouth 3 (three) times daily for 10 days. [facility] methocarbam oL (ROBAXIN) 500 MG tablet 2022-07 00:00: 00 06-14 23:59 :00 Yes 500mg Q.25D Take 1 tablet (500 mg total) by mouth 4 (four) times daily for 10 days. [facility] cyclobenzap rine (FLEXERIL) 10 MG tablet 2022-07 00:00: 00 06-14 23:59 :00 Yes 10mg Q.36207579 [id number] 3D Take 1 tablet (10 mg total) by mouth 3 (three) times daily for 10 days. [facility] methocarbam oL (ROBAXIN) 500 MG tablet 2022-07 00:00: 00 06-14 23:59 :00 Yes 500mg Q.25D Take 1 tablet (500 mg total) by mouth 4 (four) times daily for 10 days. [facility] lactulose (CHRONULAC) 20 gram/30 mL solution 2022-07 00:00: 00 06-11 23:59 :00 No 20g Q.75396975 [id number] 3D Take 30 mLs (20 g total) by mouth 3 (three) times daily for 7 days. [facility] ondansetron (ZOFRAN-ODT ) 4 MG disintegrat ing tablet 2022-07 00:00: 00 06-11 23:59 :00 No 4mg Take 1 tablet (4 mg total) by mouth every 6 (six) hours as needed for up to 7 days. [facility] lactulose (CHRONULAC) 20 gram/30 mL solution 2022-07 00:00: 00 06-11 23:59 :00 No 20g Q.99024931 [id number] 3D Take 30 mLs (20 g total) by mouth 3 (three) times daily for 7 days. [facility] ondansetron (ZOFRAN-ODT ) 4 MG disintegrat ing tablet 2022-07 00:00: 00 06-11 23:59 :00 No 4mg Take 1 tablet (4 mg total) by mouth every 6 (six) hours as needed for up to 7 days. [facility] lactulose (CHRONULAC) 20 gram/30 mL solution 2022-07 00:00: 00 06-11 23:59 :00 No 20g Q.[id number] 3D Take 30 mLs (20 g total) by mouth 3 (three) times daily for 7 days. [facility] ondansetron (ZOFRAN-ODT ) 4 MG disintegrat ing tablet 2022-07 00:00: 00 06-11 23:59 :00 No 4mg Take 1 tablet (4 mg total) by mouth every 6 (six) hours as needed for up to 7 days. [facility] lactulose (CHRONULAC) 20 gram/30 mL solution 2022-07 00:00: 00 06-11 23:59 :00 No 20g Q.73492903 [id number] 3D Take 30 mLs (20 g total) by mouth 3 (three) times daily for 7 days. [facility] ondansetron (ZOFRAN-ODT ) 4 MG disintegrat ing tablet 2022-07 00:00: 00 06-11 23:59 :00 No 4mg Take 1 tablet (4 mg total) by mouth every 6 (six) hours as needed for up to 7 days. [facility] lactulose (CHRONULAC) 20 gram/30 mL solution 2022-07 00:00: 00 06-11 23:59 :00 No 20g Q.55966722 [id number] 3D Take 30 mLs (20 g total) by mouth 3 (three) times daily for 7 days. [facility] ondansetron (ZOFRAN-ODT ) 4 MG disintegrat ing tablet 2022-07 00:00: 00 06-11 23:59 :00 No 4mg Take 1 tablet (4 mg total) by mouth every 6 (six) hours as needed for up to 7 days. [facility] lactulose (CHRONULAC) 20 gram/30 mL solution 2022-07 00:00: 00 06-11 23:59 :00 No 20g Q.25674239 [id number] 3D Take 30 mLs (20 g total) by mouth 3 (three) times daily for 7 days. [facility] ondansetron (ZOFRAN-ODT ) 4 MG disintegrat ing tablet 2022-07 00:00: 00 06-11 23:59 :00 No 4mg Take 1 tablet (4 mg total) by mouth every 6 (six) hours as needed for up to 7 days. [facility] lactulose (CHRONULAC) 20 gram/30 mL solution 2022-07 00:00: 00 06-11 23:59 :00 No 20g Q.[id number] 3D Take 30 mLs (20 g total) by mouth 3 (three) times daily for 7 days. [facility] ondansetron (ZOFRAN-ODT ) 4 MG disintegrat ing tablet 2022-07 00:00: 00 06-11 23:59 :00 No 4mg Take 1 tablet (4 mg total) by mouth every 6 (six) hours as needed for up to 7 days. [facility] lactulose (CHRONULAC) 20 gram/30 mL solution 2022-07 00:00: 00 06-11 23:59 :00 No 20g Q.[id number] 3D Take 30 mLs (20 g total) by mouth 3 (three) times daily for 7 days. [facility] ondansetron (ZOFRAN-ODT ) 4 MG disintegrat ing tablet 2022-07 00:00: 00 06-11 23:59 :00 No 4mg Take 1 tablet (4 mg total) by mouth every 6 (six) hours as needed for up to 7 days. [facility] lactulose (CHRONULAC) 20 gram/30 mL solution 2022-07 00:00: 00 06-11 23:59 :00 Yes 20g Q.[id number] 3D Take 30 mLs (20 g total) by mouth 3 (three) times daily for 7 days. [facility] ondansetron (ZOFRAN-ODT ) 4 MG disintegrat ing tablet 2022-07 00:00: 00 06-11 23:59 :00 Yes 4mg Take 1 tablet (4 mg total) by mouth every 6 (six) hours as needed for up to 7 days. [facility] lactulose (CHRONULAC) 20 gram/30 mL solution 2022-07 00:00: 00 06-11 23:59 :00 Yes 20g Q.[id number] 3D Take 30 mLs (20 g total) by mouth 3 (three) times daily for 7 days. [facility] ondansetron (ZOFRAN-ODT ) 4 MG disintegrat ing tablet 2022-07 00:00: 00 06-11 23:59 :00 Yes 4mg Take 1 tablet (4 mg total) by mouth every 6 (six) hours as needed for up to 7 days. [facility] lactulose (CHRONULAC) 20 gram/30 mL solution 2022-07 00:00: 00 06-11 23:59 :00 No 20g Q.[id number] 3D Take 30 mLs (20 g total) by mouth 3 (three) times daily for 7 days. [facility] ondansetron (ZOFRAN-ODT ) 4 MG disintegrat ing tablet 2022-07 00:00: 00 06-11 23:59 :00 No 4mg Take 1 tablet (4 mg total) by mouth every 6 (six) hours as needed for up to 7 days. [facility] lactulose (CHRONULAC) 20 gram/30 mL solution 2022-07 00:00: 00 06-11 23:59 :00 No 20g Q.96263377 [id number] 3D Take 30 mLs (20 g total) by mouth 3 (three) times daily for 7 days. [facility] ondansetron (ZOFRAN-ODT ) 4 MG disintegrat ing tablet 2022-07 00:00: 00 06-11 23:59 :00 No 4mg Take 1 tablet (4 mg total) by mouth every 6 (six) hours as needed for up to 7 days. [facility] lactulose (CHRONULAC) 20 gram/30 mL solution 2022-07 00:00: 00 06-11 23:59 :00 No 20g Q.[id number] 3D Take 30 mLs (20 g total) by mouth 3 (three) times daily for 7 days. [facility] ondansetron (ZOFRAN-ODT ) 4 MG disintegrat ing tablet 2022-07 00:00: 00 06-11 23:59 :00 No 4mg Take 1 tablet (4 mg total) by mouth every 6 (six) hours as needed for up to 7 days. [facility] lactulose (CHRONULAC) 20 gram/30 mL solution 2022-07 00:00: 00 06-11 23:59 :00 No 20g Q.[id number] 3D Take 30 mLs (20 g total) by mouth 3 (three) times daily for 7 days. [facility] ondansetron (ZOFRAN-ODT ) 4 MG disintegrat ing tablet 2022-07 00:00: 00 06-11 23:59 :00 No 4mg Take 1 tablet (4 mg total) by mouth every 6 (six) hours as needed for up to 7 days. [facility] metoprolol succinate (TOPROL-XL) 25 MG 24 hr tablet 2022-07 15:23: 22 Yes 25mg QD Take 1 tablet (25 mg total) by mouth daily. [facility] varenicline (CHANTIX) 1 mg tablet 2022-07 15:23: 22 Yes 1mg Q.5D Take 1 tablet (1 mg total) by mouth 2 (two) times daily Give with meals and with a full glass of water.. [facility] albuterol HFA (VENTOLIN HFA) 90 mcg/actuati on inhaler 2022-07 15:23: 22 Yes 1{puff} Inhale 1 puff by mouth via inhaler every 6 (six) hours as needed for Wheezing. [facility] fluticasone -umeclidin- vilanter (Trelegy Ellipta) 200-62.5-25 mcg DsDv 2022-07 15:23: 22 Yes QD Inhale by mouth via inhaler daily. [facility] atorvastati n (LIPITOR) 20 MG tablet 2022-07 15:23: 22 Yes 20mg QD Take 1 tablet (20 mg total) by mouth daily. [facility] acetaminoph en-codeine (TYLENOL #3) 300-30 mg per tablet 2022-07 15:23: 22 Yes 1{tbl} Take 1 tablet by mouth every 4 (four) hours as needed for Pain. [facility] acetaminoph en-codeine (TYLENOL #3) 300-30 mg per tablet 2022-07 09:42: 02 Yes 1{tbl} Take 1 tablet by mouth every 4 (four) hours as needed for Pain. Max Daily Amount: 6 tablets [facility] acetaminoph en-codeine (TYLENOL #3) 300-30 mg per tablet 2022-07 09:42: 02 Yes 1{tbl} Take 1 tablet by mouth every 4 (four) hours as needed for Pain. Max Daily Amount: 6 tablets [facility] varenicline (CHANTIX) 1 mg tablet 2022-07 09:40: 04 Yes 1mg Q.5D Take 1 tablet (1 mg total) by mouth 2 (two) times daily Give with meals and with a full glass of water.. [facility] albuterol HFA (VENTOLIN HFA) 90 mcg/actuati on inhaler 2022-07 09:40: 04 Yes 1{puff} Inhale 1 puff by mouth via inhaler every 6 (six) hours as needed for Wheezing. [facility] fluticasone -umeclidin- vilanter (Trelegy Ellipta) 200-62.5-25 mcg DsDv 2022-07 09:40: 04 Yes QD Inhale by mouth via inhaler daily. [facility] atorvastati n (LIPITOR) 20 MG tablet 2022-07 09:40: 04 Yes 20mg QD Take 1 tablet (20 mg total) by mouth daily. [facility] varenicline (CHANTIX) 1 mg tablet 2022-07 09:40: 04 Yes 1mg Q.5D Take 1 tablet (1 mg total) by mouth 2 (two) times daily Give with meals and with a full glass of water.. [facility] albuterol HFA (VENTOLIN HFA) 90 mcg/actuati on inhaler 2022-07 09:40: 04 Yes 1{puff} Inhale 1 puff by mouth via inhaler every 6 (six) hours as needed for Wheezing. [facility] fluticasone -umeclidin- vilanter (Trelegy Ellipta) 200-62.5-25 mcg DsDv 2022-07 09:40: 04 Yes QD Inhale by mouth via inhaler daily. [facility] atorvastati n (LIPITOR) 20 MG tablet 2022-07 09:40: 04 Yes 20mg QD Take 1 tablet (20 mg total) by mouth daily. [facility] metoprolol succinate (TOPROL-XL) 25 MG 24 hr tablet 2022-07 09:13: 28 Yes 25mg QD Take 1 tablet (25 mg total) by mouth daily. [facility] metoprolol succinate (TOPROL-XL) 25 MG 24 hr tablet 2022-07 09:13: 28 Yes 25mg QD Take 1 tablet (25 mg total) by mouth daily. [facility] furosemide (LASIX) 20 MG tablet 04-03 00:00: 00 04-02 23:59 :00 No 20mg QD Take 1 tablet (20 mg total) by mouth daily. [facility] furosemide (LASIX) 20 MG tablet 04-03 00:00: 00 04-02 23:59 :00 No 20mg QD Take 1 tablet (20 mg total) by mouth daily. [facility] DULoxetine (CYMBALTA) 30 MG capsule 04-03 00:00: 00 04-02 23:59 :00 No 30mg QD Take 1 capsule (30 mg total) by mouth daily. [facility] furosemide (LASIX) 20 MG tablet 04-03 00:00: 00 04-02 23:59 :00 No 20mg QD Take 1 tablet (20 mg total) by mouth daily. [facility] lisinopriL (PRINIVIL,Z ESTRIL) 5 MG tablet 04-03 00:00: 00 04-02 23:59 :00 No 5mg QD Take 1 tablet (5 mg total) by mouth daily. [facility] furosemide (LASIX) 20 MG tablet 2022-0 -15 00:00: 00 04-02 23:59 :00 No 20mg QD Take 1 tablet (20 mg total) by mouth daily. [facility] furosemide (LASIX) 20 MG tablet 2022-0 -15 00:00: 00 04-02 23:59 :00 No 20mg QD Take 1 tablet (20 mg total) by mouth daily. [facility] furosemide (LASIX) 20 MG tablet 0 -15 00:00: 00 04-02 23:59 :00 No 20mg QD Take 1 tablet (20 mg total) by mouth daily. [facility] furosemide (LASIX) 20 MG tablet 0 -15 00:00: 00 04-02 23:59 :00 No 20mg QD Take 1 tablet (20 mg total) by mouth daily. [facility] furosemide (LASIX) 20 MG tablet 0 -15 00:00: 00 04-02 23:59 :00 No 20mg QD Take 1 tablet (20 mg total) by mouth daily. [facility] furosemide (LASIX) 20 MG tablet 0 15 00:00: 00 04-02 23:59 :00 No 20mg QD Take 1 tablet (20 mg total) by mouth daily. [facility] DULoxetine (CYMBALTA) 30 MG capsule 0 -15 00:00: 00 04-02 23:59 :00 No 30mg QD Take 1 capsule (30 mg total) by mouth daily. [facility] furosemide (LASIX) 20 MG tablet 2022-0 -15 00:00: 00 04-02 23:59 :00 No 20mg QD Take 1 tablet (20 mg total) by mouth daily. [facility] lisinopriL (PRINIVIL,Z ESTRIL) 5 MG tablet 2022-0 9-15 00:00: 00 04-02 23:59 :00 No 5mg QD Take 1 tablet (5 mg total) by mouth daily. [facility] furosemide (LASIX) 20 MG tablet 2022-0 -15 00:00: 00 04-02 23:59 :00 No 20mg QD Take 1 tablet (20 mg total) by mouth daily. [facility] DULoxetine (CYMBALTA) 30 MG capsule 2022-0 -15 00:00: 00 04-02 23:59 :00 No 30mg QD Take 1 capsule (30 mg total) by mouth daily. [facility] lisinopriL (PRINIVIL,Z ESTRIL) 5 MG tablet 2022-0 -15 00:00: 00 04-02 23:59 :00 No 5mg QD Take 1 tablet (5 mg total) by mouth daily. [facility] furosemide (LASIX) 20 MG tablet 2022-0 -15 00:00: 00 04-02 23:59 :00 No 20mg QD Take 1 tablet (20 mg total) by mouth daily. [facility] DULoxetine (CYMBALTA) 30 MG capsule 0 15 00:00: 00 04-02 23:59 :00 No 30mg QD Take 1 capsule (30 mg total) by mouth daily. [facility] lisinopriL (PRINIVIL,Z ESTRIL) 5 MG tablet 0 -15 00:00: 00 04-02 23:59 :00 No 5mg QD Take 1 tablet (5 mg total) by mouth daily. [facility] furosemide (LASIX) 20 MG tablet 2022-0 -15 00:00: 00 04-02 23:59 :00 No 20mg QD Take 1 tablet (20 mg total) by mouth daily. [facility] DULoxetine (CYMBALTA) 30 MG capsule 2022-0 -15 00:00: 00 04-02 23:59 :00 No 30mg QD Take 1 capsule (30 mg total) by mouth daily. [facility] lisinopriL (PRINIVIL,Z ESTRIL) 5 MG tablet 2022-0 9-15 00:00: 00 04-02 23:59 :00 No 5mg QD Take 1 tablet (5 mg total) by mouth daily. [facility] furosemide (LASIX) 20 MG tablet 2022-0 9-15 00:00: 00 04-02 23:59 :00 No 20mg QD Take 1 tablet (20 mg total) by mouth daily. [facility] DULoxetine (CYMBALTA) 30 MG capsule 2022-0 9-15 00:00: 00 04-02 23:59 :00 No 30mg QD Take 1 capsule (30 mg total) by mouth daily. [facility] lisinopriL (PRINIVIL,Z ESTRIL) 5 MG tablet 2022-0 9-15 00:00: 00 04-02 23:59 :00 No 5mg QD Take 1 tablet (5 mg total) by mouth daily. [facility] furosemide (LASIX) 20 MG tablet 2022-0 9-15 00:00: 00 04-02 23:59 :00 No 20mg QD Take 1 tablet (20 mg total) by mouth daily. [facility] [facility] D[facility] (CYMBALTA[facility] 30 MG capsule 2022-0 9-15 00:00: 00 04-02 23:59 :00 No 30mg QD Take 1 capsule (30 mg total) by mouth daily. [facility] lisinopriL (PRINIVIL,Z ESTRIL) 5 MG tablet 2022-0 9-15 00:00: 00 04-02 23:59 :00 No 5mg QD Take 1 tablet (5 mg total) by mouth daily. [facility] furosemide (LASIX) 20 MG tablet 2022-0 -15 00:00: 00 04-02 23:59 :00 No 20mg QD Take 1 tablet (20 mg total) by mouth daily. [facility] DULoxetine (CYMBALTA) 30 MG capsule 2022-0 9-15 00:00: 00 04-02 23:59 :00 No 30mg QD Take 1 capsule (30 mg total) by mouth daily. [facility] lisinopriL (PRINIVIL,Z ESTRIL) 5 MG tablet 2022-0 9-15 00:00: 00 04-02 23:59 :00 No 5mg QD Take 1 tablet (5 mg total) by mouth daily. [facility] furosemide (LASIX) 20 MG tablet 2022-0 9-15 00:00: 00 04-02 23:59 :00 No 20mg QD Take 1 tablet (20 mg total) by mouth daily. [facility] DULoxetine (CYMBALTA) 30 MG capsule 0 9-15 00:00: 00 04-02 23:59 :00 No 30mg QD Take 1 capsule (30 mg total) by mouth daily. [facility] lisinopriL (PRINIVIL,Z ESTRIL) 5 MG tablet 0 9-15 00:00: 00 04-02 23:59 :00 No 5mg QD Take 1 tablet (5 mg total) by mouth daily. [facility] furosemide (LASIX) 20 MG tablet 0 -15 00:00: 00 04-02 23:59 :00 No 20mg QD Take 1 tablet (20 mg total) by mouth daily. [facility] DULoxetine (CYMBALTA) 30 MG capsule 2022-0 9-15 00:00: 00 04-02 23:59 :00 No 30mg QD Take 1 capsule (30 mg total) by mouth daily. [facility] furosemide (LASIX) 20 MG tablet 0 9-15 00:00: 00 04-02 23:59 :00 No 20mg QD Take 1 tablet (20 mg total) by mouth daily. [facility] DULoxetine (CYMBALTA) 30 MG capsule 2022-0 9-15 00:00: 00 04-02 23:59 :00 No 30mg QD Take 1 capsule (30 mg total) by mouth daily. [facility] furosemide (LASIX) 20 MG tablet 2022-0 9-15 00:00: 00 04-02 23:59 :00 No 20mg QD Take 1 tablet (20 mg total) by mouth daily. [facility] DULoxetine (CYMBALTA) 30 MG capsule 2022-0 9-15 00:00: 00 04-02 23:59 :00 No 30mg QD Take 1 capsule (30 mg total) by mouth daily. [facility] furosemide (LASIX) 20 MG tablet 04-03 00:00: 00 04-02 23:59 :00 No 20mg QD Take 1 tablet (20 mg total) by mouth daily. [facility] DULoxetine (CYMBALTA) 30 MG capsule 04-03 00:00: 00 04-02 23:59 :00 No 30mg QD Take 1 capsule (30 mg total) by mouth daily. [facility] furosemide (LASIX) 20 MG tablet 04-03 00:00: 00 04-02 23:59 :00 No 20mg QD Take 1 tablet (20 mg total) by mouth daily. [facility] furosemide (LASIX) 20 MG tablet 04-03 00:00: 00 04-02 23:59 :00 No 20mg QD Take 1 tablet (20 mg total) by mouth daily. [facility] furosemide (LASIX) 20 MG tablet 04-03 00:00: 00 04-02 23:59 :00 No 20mg QD Take 1 tablet (20 mg total) by mouth daily. [facility] aspirin 81 MG EC tablet 04-03 00:00: 00 07-02 23:59 :00 No 81mg QD Take 1 tablet (81 mg total) by mouth daily for 90 days. [facility] divalproex (DEPAKOTE) 500 MG EC tablet 04-03 00:00: 00 07-02 23:59 :00 No 500mg Q.5D Take 1 tablet (500 mg total) by mouth 2 (two) times daily for 90 days. [facility] gabapentin (NEURONTIN) 300 MG capsule 04-03 00:00: 00 07-02 23:59 :00 No 300mg Q.[id number] 3D Take 1 capsule (300 mg total) by mouth 3 (three) times daily for 90 days. [facility] aspirin 81 MG EC tablet 04-03 00:00: 00 07-02 23:59 :00 No 81mg QD Take 1 tablet (81 mg total) by mouth daily for 90 days. [facility] divalproex (DEPAKOTE) 500 MG EC tablet 04-03 00:00: 00 07-02 23:59 :00 No 500mg Q.5D Take 1 tablet (500 mg total) by mouth 2 (two) times daily for 90 days. [facility] gabapentin (NEURONTIN) 300 MG capsule 04-03 00:00: 00 07-02 23:59 :00 No 300mg Q.[id number] 3D Take 1 capsule (300 mg total) by mouth 3 (three) times daily for 90 days. [facility] aspirin 81 MG EC tablet 04-03 00:00: 00 07-02 23:59 :00 No 81mg QD Take 1 tablet (81 mg total) by mouth daily for 90 days. [facility] divalproex (DEPAKOTE) 500 MG EC tablet 04-03 00:00: 00 07-02 23:59 :00 No 500mg Q.5D Take 1 tablet (500 mg total) by mouth 2 (two) times daily for 90 days. [facility] gabapentin (NEURONTIN) 300 MG capsule 04-03 00:00: 00 07-02 23:59 :00 No 300mg Q.[id number] 3D Take 1 capsule (300 mg total) by mouth 3 (three) times daily for 90 days. [facility] aspirin 81 MG EC tablet 04-03 00:00: 00 07-02 23:59 :00 No 81mg QD Take 1 tablet (81 mg total) by mouth daily for 90 days. [facility] divalproex (DEPAKOTE) 500 MG EC tablet 04-03 00:00: 00 07-02 23:59 :00 No 500mg Q.5D Take 1 tablet (500 mg total) by mouth 2 (two) times daily for 90 days. [facility] gabapentin (NEURONTIN) 300 MG capsule 04-03 00:00: 00 07-02 23:59 :00 No 300mg Q.[id number] 3D Take 1 capsule (300 mg total) by mouth 3 (three) times daily for 90 days. [facility] aspirin 81 MG EC tablet 04-03 00:00: 00 07-02 23:59 :00 No 81mg QD Take 1 tablet (81 mg total) by mouth daily for 90 days. [facility] divalproex (DEPAKOTE) 500 MG EC tablet 04-03 00:00: 00 07-02 23:59 :00 No 500mg Q.5D Take 1 tablet (500 mg total) by mouth 2 (two) times daily for 90 days. [facility] gabapentin (NEURONTIN) 300 MG capsule 04-03 00:00: 00 07-02 23:59 :00 No 300mg Q.[id number] 3D Take 1 capsule (300 mg total) by mouth 3 (three) times daily for 90 days. [facility] aspirin 81 MG EC tablet 04-03 00:00: 00 07-02 23:59 :00 No 81mg QD Take 1 tablet (81 mg total) by mouth daily for 90 days. [facility] divalproex (DEPAKOTE) 500 MG EC tablet 04-03 00:00: 00 07-02 23:59 :00 No 500mg Q.5D Take 1 tablet (500 mg total) by mouth 2 (two) times daily for 90 days. [facility] gabapentin (NEURONTIN) 300 MG capsule 04-03 00:00: 00 07-02 23:59 :00 No 300mg Q.[id number] 3D Take 1 capsule (300 mg total) by mouth 3 (three) times daily for 90 days. [facility] aspirin 81 MG EC tablet 04-03 00:00: 00 07-02 23:59 :00 No 81mg QD Take 1 tablet (81 mg total) by mouth daily for 90 days. [facility] divalproex (DEPAKOTE) 500 MG EC tablet 04-03 00:00: 00 07-02 23:59 :00 No 500mg Q.5D Take 1 tablet (500 mg total) by mouth 2 (two) times daily for 90 days. [facility] gabapentin (NEURONTIN) 300 MG capsule 04-03 00:00: 00 07-02 23:59 :00 No 300mg Q.[id number] 3D Take 1 capsule (300 mg total) by mouth 3 (three) times daily for 90 days. [facility] aspirin 81 MG EC tablet 04-03 00:00: 00 07-02 23:59 :00 No 81mg QD Take 1 tablet (81 mg total) by mouth daily for 90 days. [facility] divalproex (DEPAKOTE) 500 MG EC tablet 04-03 00:00: 00 07-02 23:59 :00 No 500mg Q.5D Take 1 tablet (500 mg total) by mouth 2 (two) times daily for 90 days. [facility] gabapentin (NEURONTIN) 300 MG capsule 04-03 00:00: 00 07-02 23:59 :00 No 300mg Q.[id number] 3D Take 1 capsule (300 mg total) by mouth 3 (three) times daily for 90 days. [facility] aspirin 81 MG EC tablet 04-03 00:00: 00 07-02 23:59 :00 No 81mg QD Take 1 tablet (81 mg total) by mouth daily for 90 days. [facility] divalproex (DEPAKOTE) 500 MG EC tablet 04-03 00:00: 00 07-02 23:59 :00 No 500mg Q.5D Take 1 tablet (500 mg total) by mouth 2 (two) times daily for 90 days. [facility] gabapentin (NEURONTIN) 300 MG capsule 04-03 00:00: 00 07-02 23:59 :00 No 300mg Q.[id number] 3D Take 1 capsule (300 mg total) by mouth 3 (three) times daily for 90 days. [facility] aspirin 81 MG EC tablet 04-03 00:00: 00 07-02 23:59 :00 No 81mg QD Take 1 tablet (81 mg total) by mouth daily for 90 days. [facility] divalproex (DEPAKOTE) 500 MG EC tablet 04-03 00:00: 00 07-02 23:59 :00 No 500mg Q.5D Take 1 tablet (500 mg total) by mouth 2 (two) times daily for 90 days. [facility] gabapentin (NEURONTIN) 300 MG capsule 04-03 00:00: 00 07-02 23:59 :00 No 300mg Q.[id number] 3D Take 1 capsule (300 mg total) by mouth 3 (three) times daily for 90 days. [facility] aspirin 81 MG EC tablet 04-03 00:00: 00 07-02 23:59 :00 No 81mg QD Take 1 tablet (81 mg total) by mouth daily for 90 days. [facility] divalproex (DEPAKOTE) 500 MG EC tablet 04-03 00:00: 00 07-02 23:59 :00 No 500mg Q.5D Take 1 tablet (500 mg total) by mouth 2 (two) times daily for 90 days. [facility] gabapentin (NEURONTIN) 300 MG capsule 04-03 00:00: 00 07-02 23:59 :00 No 300mg Q.[id number] 3D Take 1 capsule (300 mg total) by mouth 3 (three) times daily for 90 days. [facility] aspirin 81 MG EC tablet 04-03 00:00: 00 07-02 23:59 :00 No 81mg QD Take 1 tablet (81 mg total) by mouth daily for 90 days. [facility] divalproex (DEPAKOTE) 500 MG EC tablet 04-03 00:00: 00 07-02 23:59 :00 No 500mg Q.5D Take 1 tablet (500 mg total) by mouth 2 (two) times daily for 90 days. [facility] gabapentin (NEURONTIN) 300 MG capsule 04-03 00:00: 00 07-02 23:59 :00 No 300mg Q.[id number] 3D Take 1 capsule (300 mg total) by mouth 3 (three) times daily for 90 days. [facility] aspirin 81 MG EC tablet 04-03 00:00: 00 07-02 23:59 :00 No 81mg QD Take 1 tablet (81 mg total) by mouth daily for 90 days. [facility] divalproex (DEPAKOTE) 500 MG EC tablet 04-03 00:00: 00 07-02 23:59 :00 No 500mg Q.5D Take 1 tablet (500 mg total) by mouth 2 (two) times daily for 90 days. [facility] gabapentin (NEURONTIN) 300 MG capsule 04-03 00:00: 00 07-02 23:59 :00 No 300mg Q.[id number] 3D Take 1 capsule (300 mg total) by mouth 3 (three) times daily for 90 days. [facility] aspirin 81 MG EC tablet 04-03 00:00: 00 07-02 23:59 :00 No 81mg QD Take 1 tablet (81 mg total) by mouth daily for 90 days. [facility] divalproex (DEPAKOTE) 500 MG EC tablet 04-03 00:00: 00 07-02 23:59 :00 No 500mg Q.5D Take 1 tablet (500 mg total) by mouth 2 (two) times daily for 90 days. [facility] gabapentin (NEURONTIN) 300 MG capsule 04-03 00:00: 00 07-02 23:59 :00 No 300mg Q.[id number] 3D Take 1 capsule (300 mg total) by mouth 3 (three) times daily for 90 days. [facility] aspirin 81 MG EC tablet 04-03 00:00: 00 07-02 23:59 :00 No 81mg QD Take 1 tablet (81 mg total) by mouth daily for 90 days. [facility] divalproex (DEPAKOTE) 500 MG EC tablet 04-03 00:00: 00 07-02 23:59 :00 No 500mg Q.5D Take 1 tablet (500 mg total) by mouth 2 (two) times daily for 90 days. [facility] gabapentin (NEURONTIN) 300 MG capsule 04-03 00:00: 00 07-02 23:59 :00 No 300mg Q.[id number] 3D Take 1 capsule (300 mg total) by mouth 3 (three) times daily for 90 days. [facility] aspirin 81 MG EC tablet 04-03 00:00: 00 07-02 23:59 :00 No 81mg QD Take 1 tablet (81 mg total) by mouth daily for 90 days. [facility] divalproex (DEPAKOTE) 500 MG EC tablet 04-03 00:00: 00 07-02 23:59 :00 No 500mg Q.5D Take 1 tablet (500 mg total) by mouth 2 (two) times daily for 90 days. [facility] gabapentin (NEURONTIN) 300 MG capsule 04-03 00:00: 00 07-02 23:59 :00 No 300mg Q.[id number] 3D Take 1 capsule (300 mg total) by mouth 3 (three) times daily for 90 days. [facility] aspirin 81 MG EC tablet 04-03 00:00: 00 07-02 23:59 :00 No 81mg QD Take 1 tablet (81 mg total) by mouth daily for 90 days. [facility] divalproex (DEPAKOTE) 500 MG EC tablet 04-03 00:00: 00 07-02 23:59 :00 No 500mg Q.5D Take 1 tablet (500 mg total) by mouth 2 (two) times daily for 90 days. [facility] gabapentin (NEURONTIN) 300 MG capsule 15 00:00: 00 07-02 23:59 :00 No 300mg Q.[id number] 3D Take 1 capsule (300 mg total) by mouth 3 (three) times daily for 90 days. [facility] aspirin 81 MG EC tablet 15 00:00: 00 07-02 23:59 :00 No 81mg QD Take 1 tablet (81 mg total) by mouth daily for 90 days. [facility] divalproex (DEPAKOTE) 500 MG EC tablet 15 00:00: 00 07-02 23:59 :00 No 500mg Q.5D Take 1 tablet (500 mg total) by mouth 2 (two) times daily for 90 days. [facility] gabapentin (NEURONTIN) 300 MG capsule 04-03 00:00: 00 07-02 23:59 :00 No 300mg Q.[id number] 3D Take 1 capsule (300 mg total) by mouth 3 (three) times daily for 90 days. [facility] aspirin 81 MG EC tablet 15 00:00: 00 07-02 23:59 :00 No 81mg QD Take 1 tablet (81 mg total) by mouth daily for 90 days. [facility] divalproex (DEPAKOTE) 500 MG EC tablet 15 00:00: 00 07-02 23:59 :00 No 500mg Q.5D Take 1 tablet (500 mg total) by mouth 2 (two) times daily for 90 days. [facility] gabapentin (NEURONTIN) 300 MG capsule 15 00:00: 00 07-02 23:59 :00 No 300mg Q.[id number] 3D Take 1 capsule (300 mg total) by mouth 3 (three) times daily for 90 days. [facility] aspirin 81 MG EC tablet -15 00:00: 00 07-02 23:59 :00 No 81mg QD Take 1 tablet (81 mg total) by mouth daily for 90 days. [facility] divalproex (DEPAKOTE) 500 MG EC tablet 04-03 00:00: 00 07-02 23:59 :00 No 500mg Q.5D Take 1 tablet (500 mg total) by mouth 2 (two) times daily for 90 days. [facility] gabapentin (NEURONTIN) 300 MG capsule 04-03 00:00: 00 07-02 23:59 :00 No 300mg Q.[id number] 3D Take 1 capsule (300 mg total) by mouth 3 (three) times daily for 90 days. [facility] aspirin 81 MG EC tablet 04-03 00:00: 00 07-02 23:59 :00 No 81mg QD Take 1 tablet (81 mg total) by mouth daily for 90 days. [facility] divalproex (DEPAKOTE) 500 MG EC tablet 04-03 00:00: 00 07-02 23:59 :00 No 500mg Q.5D Take 1 tablet (500 mg total) by mouth 2 (two) times daily for 90 days. [facility] gabapentin (NEURONTIN) 300 MG capsule 04-03 00:00: 00 07-02 23:59 :00 No 300mg Q.[id number] 3D Take 1 capsule (300 mg total) by mouth 3 (three) times daily for 90 days. [facility] aspirin 81 MG EC tablet 04-03 00:00: 00 07-02 23:59 :00 No 81mg QD Take 1 tablet (81 mg total) by mouth daily for 90 days. [facility] divalproex (DEPAKOTE) 500 MG EC tablet 04-03 00:00: 00 07-02 23:59 :00 No 500mg Q.5D Take 1 tablet (500 mg total) by mouth 2 (two) times daily for 90 days. [facility] gabapentin (NEURONTIN) 300 MG capsule 04-03 00:00: 00 07-02 23:59 :00 No 300mg Q.[id number] 3D Take 1 capsule (300 mg total) by mouth 3 (three) times daily for 90 days. [facility] aspirin 81 MG EC tablet 04-03 00:00: 00 07-02 23:59 :00 No 81mg QD Take 1 tablet (81 mg total) by mouth daily for 90 days. [facility] divalproex (DEPAKOTE) 500 MG EC tablet 04-03 00:00: 00 07-02 23:59 :00 No 500mg Q.5D Take 1 tablet (500 mg total) by mouth 2 (two) times daily for 90 days. [facility] gabapentin (NEURONTIN) 300 MG capsule 04-03 00:00: 00 07-02 23:59 :00 No 300mg Q.[id number] 3D Take 1 capsule (300 mg total) by mouth 3 (three) times daily for 90 days. [facility] aspirin 81 MG EC tablet 04-03 00:00: 00 07-02 23:59 :00 No 81mg QD Take 1 tablet (81 mg total) by mouth daily for 90 days. [facility] divalproex (DEPAKOTE) 500 MG EC tablet 04-03 00:00: 00 07-02 23:59 :00 No 500mg Q.5D Take 1 tablet (500 mg total) by mouth 2 (two) times daily for 90 days. [facility] gabapentin (NEURONTIN) 300 MG capsule 04-03 00:00: 00 07-02 23:59 :00 No 300mg Q.[id number] 3D Take 1 capsule (300 mg total) by mouth 3 (three) times daily for 90 days. [facility] DULoxetine (CYMBALTA) 30 MG capsule 04-03 00:00: 00 06-16 00:00 :00 No 30mg QD Take 1 capsule (30 mg total) by mouth daily. [facility] DULoxetine (CYMBALTA) 30 MG capsule 04-03 00:00: 00 06-16 00:00 :00 No 30mg QD Take 1 capsule (30 mg total) by mouth daily. [facility] DULoxetine (CYMBALTA) 30 MG capsule 2022-0 9-15 00:00: 00 06-16 00:00 :00 No 30mg QD Take 1 capsule (30 mg total) by mouth daily. [facility] DULoxetine (CYMBALTA) 30 MG capsule 2022-0 9-15 00:00: 00 06-16 00:00 :00 No 30mg QD Take 1 capsule (30 mg total) by mouth daily. [facility] DULoxetine (CYMBALTA) 30 MG capsule 2022-0 9-15 00:00: 00 06-16 00:00 :00 No 30mg QD Take 1 capsule (30 mg total) by mouth daily. [facility] DULoxetine (CYMBALTA) 30 MG capsule 2022-0 9-15 00:00: 00 06-16 00:00 :00 No 30mg QD Take 1 capsule (30 mg total) by mouth daily. [facility] DULoxetine (CYMBALTA) 30 MG capsule 2022-0 9-15 00:00: 00 06-16 00:00 :00 No 30mg QD Take 1 capsule (30 mg total) by mouth daily. [facility] DULoxetine (CYMBALTA) 30 MG capsule 2022-0 9-15 00:00: 00 06-16 00:00 :00 No 30mg QD Take 1 capsule (30 mg total) by mouth daily. [facility] DULoxetine (CYMBALTA) 30 MG capsule 2022-0 9-15 00:00: 00 06-16 00:00 :00 No 30mg QD Take 1 capsule (30 mg total) by mouth daily. [facility] DULoxetine (CYMBALTA) 30 MG capsule 2022-0 9-15 00:00: 00 06-16 00:00 :00 No 30mg QD Take 1 capsule (30 mg total) by mouth daily. [facility] DULoxetine (CYMBALTA) 30 MG capsule 2022-0 9-15 00:00: 00 06-16 00:00 :00 No 30mg QD Take 1 capsule (30 mg total) by mouth daily. [facility] lisinopriL (PRINIVIL,Z ESTRIL) 5 MG tablet 04-03 00:00: 00 05-28 00:00 :00 No 5mg QD Take 1 tablet (5 mg total) by mouth daily. [facility] lisinopriL (PRINIVIL,Z ESTRIL) 5 MG tablet 04-03 00:00: 00 05-28 00:00 :00 No 5mg QD Take 1 tablet (5 mg total) by mouth daily. [facility] lisinopriL (PRINIVIL,Z ESTRIL) 5 MG tablet 04-03 00:00: 00 05-28 00:00 :00 No 5mg QD Take 1 tablet (5 mg total) by mouth daily. [facility] lisinopriL (PRINIVIL,Z ESTRIL) 5 MG tablet 04-03 00:00: 00 05-28 00:00 :00 No 5mg QD Take 1 tablet (5 mg total) by mouth daily. [facility] lisinopriL (PRINIVIL,Z ESTRIL) 5 MG tablet 04-03 00:00: 00 05-28 00:00 :00 No 5mg QD Take 1 tablet (5 mg total) by mouth daily. [facility] lisinopriL (PRINIVIL,Z ESTRIL) 5 MG tablet 04-03 00:00: 00 05-28 00:00 :00 No 5mg QD Take 1 tablet (5 mg total) by mouth daily. [facility] lisinopriL (PRINIVIL,Z ESTRIL) 5 MG tablet 04-03 00:00: 00 05-28 00:00 :00 No 5mg QD Take 1 tablet (5 mg total) by mouth daily. [facility] lisinopriL (PRINIVIL,Z ESTRIL) 5 MG tablet 04-03 00:00: 00 05-28 00:00 :00 No 5mg QD Take 1 tablet (5 mg total) by mouth daily. [facility] lisinopriL (PRINIVIL,Z ESTRIL) 5 MG tablet 04-03 00:00: 00 05-28 00:00 :00 No 5mg QD Take 1 tablet (5 mg total) by mouth daily. [facility] lisinopriL (PRINIVIL,Z ESTRIL) 5 MG tablet 04-03 00:00: 00 05-28 00:00 :00 No 5mg QD Take 1 tablet (5 mg total) by mouth daily. [facility] lisinopriL (PRINIVIL,Z ESTRIL) 5 MG tablet 04-03 00:00: 00 05-28 00:00 :00 No 5mg QD Take 1 tablet (5 mg total) by mouth daily. [facility] lisinopriL (PRINIVIL,Z ESTRIL) 5 MG tablet 04-03 00:00: 00 05-28 00:00 :00 No 5mg QD Take 1 tablet (5 mg total) by mouth daily. [facility] lisinopriL (PRINIVIL,Z ESTRIL) 5 MG tablet 04-03 00:00: 00 05-28 00:00 :00 No 5mg QD Take 1 tablet (5 mg total) by mouth daily. [facility] lisinopriL (PRINIVIL,Z ESTRIL) 5 MG tablet 04-03 00:00: 00 05-28 00:00 :00 No 5mg QD Take 1 tablet (5 mg total) by mouth daily. [facility] lisinopriL (PRINIVIL,Z ESTRIL) 5 MG tablet 04-03 00:00: 00 05-28 00:00 :00 No 5mg QD Take 1 tablet (5 mg total) by mouth daily. [facility] clonazePAM (KlonoPIN) 0.5 MG tablet -15 00:00: 00 05-03 23:59 :00 No .25mg Take 0.5 tablets (0.25 mg total) by mouth 2 (two) times daily as needed for Anxiety for up to 30 days. Max Daily Amount: 0.5 mg [facility] clonazePAM (KlonoPIN) 0.5 MG tablet 15 00:00: 00 05-03 23:59 :00 No .25mg Take 0.5 tablets (0.25 mg total) by mouth 2 (two) times daily as needed for Anxiety for up to 30 days. Max Daily Amount: 0.5 mg [facility] clonazePAM (KlonoPIN) 0.5 MG tablet 04-03 00:00: 00 05-03 23:59 :00 No .25mg Take 0.5 tablets (0.25 mg total) by mouth 2 (two) times daily as needed for Anxiety for up to 30 days. Max Daily Amount: 0.5 mg [facility] clonazePAM (KlonoPIN) 0.5 MG tablet 04-03 00:00: 00 05-03 23:59 :00 No .25mg Take 0.5 tablets (0.25 mg total) by mouth 2 (two) times daily as needed for Anxiety for up to 30 days. Max Daily Amount: 0.5 mg [facility] clonazePAM (KlonoPIN) 0.5 MG tablet 04-03 00:00: 00 05-03 23:59 :00 No .25mg Take 0.5 tablets (0.25 mg total) by mouth 2 (two) times daily as needed for Anxiety for up to 30 days. Max Daily Amount: 0.5 mg [facility] clonazePAM (KlonoPIN) 0.5 MG tablet 0 15 00:00: 00 05-03 23:59 :00 No .25mg Take 0.5 tablets (0.25 mg total) by mouth 2 (two) times daily as needed for Anxiety for up to 30 days. Max Daily Amount: 0.5 mg [facility] clonazePAM (KlonoPIN) 0.5 MG tablet 0 15 00:00: 00 05-03 23:59 :00 No .25mg Take 0.5 tablets (0.25 mg total) by mouth 2 (two) times daily as needed for Anxiety for up to 30 days. Max Daily Amount: 0.5 mg [facility] clonazePAM (KlonoPIN) 0.5 MG tablet 15 00:00: 00 05-03 23:59 :00 No .25mg Take 0.5 tablets (0.25 mg total) by mouth 2 (two) times daily as needed for Anxiety for up to 30 days. Max Daily Amount: 0.5 mg [facility] clonazePAM (KlonoPIN) 0.5 MG tablet 0 15 00:00: 00 05-03 23:59 :00 No .25mg Take 0.5 tablets (0.25 mg total) by mouth 2 (two) times daily as needed for Anxiety for up to 30 days. Max Daily Amount: 0.5 mg [facility] clonazePAM (KlonoPIN) 0.5 MG tablet 0 04-03 00:00: 00 05-03 23:59 :00 No .25mg Take 0.5 tablets (0.25 mg total) by mouth 2 (two) times daily as needed for Anxiety for up to 30 days. Max Daily Amount: 0.5 mg [facility] clonazePAM (KlonoPIN) 0.5 MG tablet 15 00:00: 00 05-03 23:59 :00 No .25mg Take 0.5 tablets (0.25 mg total) by mouth 2 (two) times daily as needed for Anxiety for up to 30 days. Max Daily Amount: 0.5 mg [facility] clonazePAM (KlonoPIN) 0.5 MG tablet 0 15 00:00: 00 05-03 23:59 :00 No .25mg Take 0.5 tablets (0.25 mg total) by mouth 2 (two) times daily as needed for Anxiety for up to 30 days. Max Daily Amount: 0.5 mg [facility] clonazePAM (KlonoPIN) 0.5 MG tablet 2022-0 15 00:00: 00 05-03 23:59 :00 No .25mg Take 0.5 tablets (0.25 mg total) by mouth 2 (two) times daily as needed for Anxiety for up to 30 days. Max Daily Amount: 0.5 mg [facility] clonazePAM (KlonoPIN) 0.5 MG tablet 0 15 00:00: 00 05-03 23:59 :00 No .25mg Take 0.5 tablets (0.25 mg total) by mouth 2 (two) times daily as needed for Anxiety for up to 30 days. Max Daily Amount: 0.5 mg [facility] clonazePAM (KlonoPIN) 0.5 MG tablet 0 15 00:00: 00 05-03 23:59 :00 No .25mg Take 0.5 tablets (0.25 mg total) by mouth 2 (two) times daily as needed for Anxiety for up to 30 days. Max Daily Amount: 0.5 mg [facility] clonazePAM (KlonoPIN) 0.5 MG tablet 0 15 00:00: 00 05-03 23:59 :00 No .25mg Take 0.5 tablets (0.25 mg total) by mouth 2 (two) times daily as needed for Anxiety for up to 30 days. Max Daily Amount: 0.5 mg [facility] clonazePAM (KlonoPIN) 0.5 MG tablet 0 15 00:00: 00 05-03 23:59 :00 No .25mg Take 0.5 tablets (0.25 mg total) by mouth 2 (two) times daily as needed for Anxiety for up to 30 days. Max Daily Amount: 0.5 mg [facility] clonazePAM (KlonoPIN) 0.5 MG tablet 0 15 00:00: 00 05-03 23:59 :00 No .25mg Take 0.5 tablets (0.25 mg total) by mouth 2 (two) times daily as needed for Anxiety for up to 30 days. Max Daily Amount: 0.5 mg [facility] clonazePAM (KlonoPIN) 0.5 MG tablet 0 15 00:00: 00 05-03 23:59 :00 No .25mg Take 0.5 tablets (0.25 mg total) by mouth 2 (two) times daily as needed for Anxiety for up to 30 days. Max Daily Amount: 0.5 mg [facility] clonazePAM (KlonoPIN) 0.5 MG tablet 04-03 00:00: 00 05-03 23:59 :00 No .25mg Take 0.5 tablets (0.25 mg total) by mouth 2 (two) times daily as needed for Anxiety for up to 30 days. Max Daily Amount: 0.5 mg [facility] clonazePAM (KlonoPIN) 0.5 MG tablet 04-03 00:00: 00 05-03 23:59 :00 No .25mg Take 0.5 tablets (0.25 mg total) by mouth 2 (two) times daily as needed for Anxiety for up to 30 days. Max Daily Amount: 0.5 mg [facility] clonazePAM (KlonoPIN) 0.5 MG tablet 04-03 00:00: 00 05-03 23:59 :00 No .25mg Take 0.5 tablets (0.25 mg total) by mouth 2 (two) times daily as needed for Anxiety for up to 30 days. Max Daily Amount: 0.5 mg [facility] clonazePAM (KlonoPIN) 0.5 MG tablet 04-03 00:00: 00 05-03 23:59 :00 No .25mg Take 0.5 tablets (0.25 mg total) by mouth 2 (two) times daily as needed for Anxiety for up to 30 days. Max Daily Amount: 0.5 mg [facility] clonazePAM (KlonoPIN) 0.5 MG tablet 04-03 00:00: 00 05-03 23:59 :00 No .25mg Take 0.5 tablets (0.25 mg total) by mouth 2 (two) times daily as needed for Anxiety for up to 30 days. Max Daily Amount: 0.5 mg [facility] HYDROcodone -acetaminop hen (NORCO 10-325) 10-325 mg per tablet 04-03 00:00: 00 04-13 23:59 :00 No 1{tbl} Take 1 tablet by mouth every 6 (six) hours as needed for up to 10 days. Max Daily Amount: 4 tablets [facility] methocarbam oL (ROBAXIN) 500 MG tablet 04-03 00:00: 00 04-13 23:59 :00 No 500mg Q.25D Take 1 tablet (500 mg total) by mouth 4 (four) times daily for 10 days. [facility] HYDROcodone -acetaminop hen (NORCO 10-325) 10-325 mg per tablet 04-03 00:00: 00 04-13 23:59 :00 No 1{tbl} Take 1 tablet by mouth every 6 (six) hours as needed for up to 10 days. Max Daily Amount: 4 tablets [facility] methocarbam oL (ROBAXIN) 500 MG tablet 04-03 00:00: 00 04-13 23:59 :00 No 500mg Q.25D Take 1 tablet (500 mg total) by mouth 4 (four) times daily for 10 days. [facility] HYDROcodone -acetaminop hen (NORCO 10-325) 10-325 mg per tablet 04-03 00:00: 00 04-13 23:59 :00 No 1{tbl} Take 1 tablet by mouth every 6 (six) hours as needed for up to 10 days. Max Daily Amount: 4 tablets [facility] methocarbam oL (ROBAXIN) 500 MG tablet 04-03 00:00: 00 04-13 23:59 :00 No 500mg Q.25D Take 1 tablet (500 mg total) by mouth 4 (four) times daily for 10 days. [facility] HYDROcodone -acetaminop hen (NORCO 10-325) 10-325 mg per tablet 04-03 00:00: 00 04-13 23:59 :00 No 1{tbl} Take 1 tablet by mouth every 6 (six) hours as needed for up to 10 days. Max Daily Amount: 4 tablets [facility] methocarbam oL (ROBAXIN) 500 MG tablet 04-03 00:00: 00 04-13 23:59 :00 No 500mg Q.25D Take 1 tablet (500 mg total) by mouth 4 (four) times daily for 10 days. [facility] HYDROcodone -acetaminop hen (NORCO 10-325) 10-325 mg per tablet 04-03 00:00: 00 04-13 23:59 :00 No 1{tbl} Take 1 tablet by mouth every 6 (six) hours as needed for up to 10 days. Max Daily Amount: 4 tablets [facility] methocarbam oL (ROBAXIN) 500 MG tablet 04-03 00:00: 00 04-13 23:59 :00 No 500mg Q.25D Take 1 tablet (500 mg total) by mouth 4 (four) times daily for 10 days. [facility] HYDROcodone -acetaminop hen (NORCO 10-325) 10-325 mg per tablet 04-03 00:00: 00 04-13 23:59 :00 No 1{tbl} Take 1 tablet by mouth every 6 (six) hours as needed for up to 10 days. Max Daily Amount: 4 tablets [facility] methocarbam oL (ROBAXIN) 500 MG tablet 04-03 00:00: 00 04-13 23:59 :00 No 500mg Q.25D Take 1 tablet (500 mg total) by mouth 4 (four) times daily for 10 days. [facility] HYDROcodone -acetaminop hen (NORCO 10-325) 10-325 mg per tablet 04-03 00:00: 00 04-13 23:59 :00 No 1{tbl} Take 1 tablet by mouth every 6 (six) hours as needed for up to 10 days. Max Daily Amount: 4 tablets [facility] methocarbam oL (ROBAXIN) 500 MG tablet 04-03 00:00: 00 04-13 23:59 :00 No 500mg Q.25D Take 1 tablet (500 mg total) by mouth 4 (four) times daily for 10 days. [facility] HYDROcodone -acetaminop hen (NORCO 10-325) 10-325 mg per tablet 04-03 00:00: 00 04-13 23:59 :00 No 1{tbl} Take 1 tablet by mouth every 6 (six) hours as needed for up to 10 days. Max Daily Amount: 4 tablets [facility] methocarbam oL (ROBAXIN) 500 MG tablet 04-03 00:00: 00 04-13 23:59 :00 No 500mg Q.25D Take 1 tablet (500 mg total) by mouth 4 (four) times daily for 10 days. [facility] HYDROcodone -acetaminop hen (NORCO 10-325) 10-325 mg per tablet 04-03 00:00: 00 04-13 23:59 :00 No 1{tbl} Take 1 tablet by mouth every 6 (six) hours as needed for up to 10 days. Max Daily Amount: 4 tablets [facility] methocarbam oL (ROBAXIN) 500 MG tablet 04-03 00:00: 00 04-13 23:59 :00 No 500mg Q.25D Take 1 tablet (500 mg total) by mouth 4 (four) times daily for 10 days. [facility] HYDROcodone -acetaminop hen (NORCO 10-325) 10-325 mg per tablet 04-03 00:00: 00 04-13 23:59 :00 No 1{tbl} Take 1 tablet by mouth every 6 (six) hours as needed for up to 10 days. Max Daily Amount: 4 tablets [facility] methocarbam oL (ROBAXIN) 500 MG tablet 04-03 00:00: 00 04-13 23:59 :00 No 500mg Q.25D Take 1 tablet (500 mg total) by mouth 4 (four) times daily for 10 days. [facility] HYDROcodone -acetaminop hen (NORCO 10-325) 10-325 mg per tablet 04-03 00:00: 00 04-13 23:59 :00 No 1{tbl} Take 1 tablet by mouth every 6 (six) hours as needed for up to 10 days. Max Daily Amount: 4 tablets [facility] methocarbam oL (ROBAXIN) 500 MG tablet 04-03 00:00: 00 04-13 23:59 :00 No 500mg Q.25D Take 1 tablet (500 mg total) by mouth 4 (four) times daily for 10 days. [facility] HYDROcodone -acetaminop hen (NORCO 10-325) 10-325 mg per tablet 04-03 00:00: 00 04-13 23:59 :00 No 1{tbl} Take 1 tablet by mouth every 6 (six) hours as needed for up to 10 days. Max Daily Amount: 4 tablets [facility] methocarbam oL (ROBAXIN) 500 MG tablet 04-03 00:00: 00 04-13 23:59 :00 No 500mg Q.25D Take 1 tablet (500 mg total) by mouth 4 (four) times daily for 10 days. [facility] HYDROcodone -acetaminop hen (NORCO 10-325) 10-325 mg per tablet 04-03 00:00: 00 04-13 23:59 :00 No 1{tbl} Take 1 tablet by mouth every 6 (six) hours as needed for up to 10 days. Max Daily Amount: 4 tablets [facility] methocarbam oL (ROBAXIN) 500 MG tablet 04-03 00:00: 00 04-13 23:59 :00 No 500mg Q.25D Take 1 tablet (500 mg total) by mouth 4 (four) times daily for 10 days. [facility] HYDROcodone -acetaminop hen (NORCO 10-325) 10-325 mg per tablet 04-03 00:00: 00 04-13 23:59 :00 No 1{tbl} Take 1 tablet by mouth every 6 (six) hours as needed for up to 10 days. Max Daily Amount: 4 tablets [facility] methocarbam oL (ROBAXIN) 500 MG tablet 04-03 00:00: 00 04-13 23:59 :00 No 500mg Q.25D Take 1 tablet (500 mg total) by mouth 4 (four) times daily for 10 days. [facility] HYDROcodone -acetaminop hen (NORCO 10-325) 10-325 mg per tablet 04-03 00:00: 00 04-13 23:59 :00 No 1{tbl} Take 1 tablet by mouth every 6 (six) hours as needed for up to 10 days. Max Daily Amount: 4 tablets [facility] methocarbam oL (ROBAXIN) 500 MG tablet 04-03 00:00: 00 04-13 23:59 :00 No 500mg Q.25D Take 1 tablet (500 mg total) by mouth 4 (four) times daily for 10 days. [facility] HYDROcodone -acetaminop hen (NORCO 10-325) 10-325 mg per tablet 04-03 00:00: 00 04-13 23:59 :00 No 1{tbl} Take 1 tablet by mouth every 6 (six) hours as needed for up to 10 days. Max Daily Amount: 4 tablets [facility] methocarbam oL (ROBAXIN) 500 MG tablet 04-03 00:00: 00 04-13 23:59 :00 No 500mg Q.25D Take 1 tablet (500 mg total) by mouth 4 (four) times daily for 10 days. [facility] HYDROcodone -acetaminop hen (NORCO 10-325) 10-325 mg per tablet 04-03 00:00: 00 04-13 23:59 :00 No 1{tbl} Take 1 tablet by mouth every 6 (six) hours as needed for up to 10 days. Max Daily Amount: 4 tablets [facility] methocarbam oL (ROBAXIN) 500 MG tablet 04-03 00:00: 00 04-13 23:59 :00 No 500mg Q.25D Take 1 tablet (500 mg total) by mouth 4 (four) times daily for 10 days. [facility] HYDROcodone -acetaminop hen (NORCO 10-325) 10-325 mg per tablet 04-03 00:00: 00 04-13 23:59 :00 No 1{tbl} Take 1 tablet by mouth every 6 (six) hours as needed for up to 10 days. Max Daily Amount: 4 tablets [facility] methocarbam oL (ROBAXIN) 500 MG tablet 04-03 00:00: 00 04-13 23:59 :00 No 500mg Q.25D Take 1 tablet (500 mg total) by mouth 4 (four) times daily for 10 days. [facility] HYDROcodone -acetaminop hen (NORCO 10-325) 10-325 mg per tablet 04-03 00:00: 00 04-13 23:59 :00 No 1{tbl} Take 1 tablet by mouth every 6 (six) hours as needed for up to 10 days. Max Daily Amount: 4 tablets [facility] methocarbam oL (ROBAXIN) 500 MG tablet 04-03 00:00: 00 04-13 23:59 :00 No 500mg Q.25D Take 1 tablet (500 mg total) by mouth 4 (four) times daily for 10 days. [facility] HYDROcodone -acetaminop hen (NORCO 10-325) 10-325 mg per tablet 04-03 00:00: 00 04-13 23:59 :00 No 1{tbl} Take 1 tablet by mouth every 6 (six) hours as needed for up to 10 days. Max Daily Amount: 4 tablets [facility] methocarbam oL (ROBAXIN) 500 MG tablet 04-03 00:00: 00 04-13 23:59 :00 No 500mg Q.25D Take 1 tablet (500 mg total) by mouth 4 (four) times daily for 10 days. [facility] HYDROcodone -acetaminop hen (NORCO 10-325) 10-325 mg per tablet 04-03 00:00: 00 04-13 23:59 :00 No 1{tbl} Take 1 tablet by mouth every 6 (six) hours as needed for up to 10 days. Max Daily Amount: 4 tablets [facility] methocarbam oL (ROBAXIN) 500 MG tablet 04-03 00:00: 00 04-13 23:59 :00 No 500mg Q.25D Take 1 tablet (500 mg total) by mouth 4 (four) times daily for 10 days. [facility] HYDROcodone -acetaminop hen (NORCO 10-325) 10-325 mg per tablet 04-03 00:00: 00 04-13 23:59 :00 No 1{tbl} Take 1 tablet by mouth every 6 (six) hours as needed for up to 10 days. Max Daily Amount: 4 tablets [facility] methocarbam oL (ROBAXIN) 500 MG tablet 04-03 00:00: 00 04-13 23:59 :00 No 500mg Q.25D Take 1 tablet (500 mg total) by mouth 4 (four) times daily for 10 days. [facility] HYDROcodone -acetaminop hen (NORCO 10-325) 10-325 mg per tablet 04-03 00:00: 00 04-13 23:59 :00 No 1{tbl} Take 1 tablet by mouth every 6 (six) hours as needed for up to 10 days. Max Daily Amount: 4 tablets [facility] methocarbam oL (ROBAXIN) 500 MG tablet 04-03 00:00: 00 04-13 23:59 :00 No 500mg Q.25D Take 1 tablet (500 mg total) by mouth 4 (four) times daily for 10 days. [facility] HYDROcodone -acetaminop hen (NORCO 10-325) 10-325 mg per tablet 04-03 00:00: 00 04-13 23:59 :00 No 1{tbl} Take 1 tablet by mouth every 6 (six) hours as needed for up to 10 days. Max Daily Amount: 4 tablets [facility] methocarbam oL (ROBAXIN) 500 MG tablet 04-03 00:00: 00 04-13 23:59 :00 No 500mg Q.25D Take 1 tablet (500 mg total) by mouth 4 (four) times daily for 10 days. [facility] aspirin 81 MG EC tablet 04-03 00:00: 00 04-03 00:00 :00 No 81mg QD Take 1 tablet (81 mg total) by mouth daily for 90 days. [facility] DULoxetine (CYMBALTA) 30 MG capsule 04-03 00:00: 00 04-03 00:00 :00 No 30mg QD Take 1 capsule (30 mg total) by mouth daily. [facility] furosemide (LASIX) 20 MG tablet 04-03 00:00: 00 04-03 00:00 :00 No 20mg QD Take 1 tablet (20 mg total) by mouth daily. [facility] lisinopriL (PRINIVIL,Z ESTRIL) 5 MG tablet 04-03 00:00: 00 04-03 00:00 :00 No 5mg QD Take 1 tablet (5 mg total) by mouth daily. [facility] lisinopriL (PRINIVIL,Z ESTRIL) 5 MG tablet 04-03 00:00: 00 04-03 00:00 :00 No 5mg QD Take 1 tablet (5 mg total) by mouth daily. [facility] aspirin 81 MG EC tablet 04-03 00:00: 00 04-03 00:00 :00 No 81mg QD Take 1 tablet (81 mg total) by mouth daily for 90 days. [facility] DULoxetine (CYMBALTA) 30 MG capsule 04-03 00:00: 00 04-03 00:00 :00 No 30mg QD Take 1 capsule (30 mg total) by mouth daily. [facility] furosemide (LASIX) 20 MG tablet 04-03 00:00: 00 04-03 00:00 :00 No 20mg QD Take 1 tablet (20 mg total) by mouth daily. [facility] lisinopriL (PRINIVIL,Z ESTRIL) 5 MG tablet 04-03 00:00: 00 04-03 00:00 :00 No 5mg QD Take 1 tablet (5 mg total) by mouth daily. [facility] aspirin 81 MG EC tablet 04-03 00:00: 04-03 00:00 :00 No 81mg QD Take 1 tablet (81 mg total) by mouth daily for 90 days. [facility] DULoxetine (CYMBALTA) 30 MG capsule 04-03 00:00: 00 04-03 00:00 :00 No 30mg QD Take 1 capsule (30 mg total) by mouth daily. [facility] furosemide (LASIX) 20 MG tablet 04-03 00:00: 00 04-03 00:00 :00 No 20mg QD Take 1 tablet (20 mg total) by mouth daily. [facility] lisinopriL (PRINIVIL,Z ESTRIL) 5 MG tablet 04-03 00:00: 00 04-03 00:00 :00 No 5mg QD Take 1 tablet (5 mg total) by mouth daily. [facility] aspirin 81 MG EC tablet 04-03 00:00: 00 04-03 00:00 :00 No 81mg QD Take 1 tablet (81 mg total) by mouth daily for 90 days. [facility] DULoxetine (CYMBALTA) 30 MG capsule 04-03 00:00: 00 04-03 00:00 :00 No 30mg QD Take 1 capsule (30 mg total) by mouth daily. [facility] furosemide (LASIX) 20 MG tablet 04-03 00:00: 00 04-03 00:00 :00 No 20mg QD Take 1 tablet (20 mg total) by mouth daily. [facility] lisinopriL (PRINIVIL,Z ESTRIL) 5 MG tablet 04-03 00:00: 00 04-03 00:00 :00 No 5mg QD Take 1 tablet (5 mg total) by mouth daily. [facility] aspirin 81 MG EC tablet 04-03 00:00: 00 04-03 00:00 :00 No 81mg QD Take 1 tablet (81 mg total) by mouth daily for 90 days. [facility] DULoxetine (CYMBALTA) 30 MG capsule 04-03 00:00: 00 04-03 00:00 :00 No 30mg QD Take 1 capsule (30 mg total) by mouth daily. [facility] furosemide (LASIX) 20 MG tablet 04-03 00:00: 00 04-03 00:00 :00 No 20mg QD Take 1 tablet (20 mg total) by mouth daily. [facility] lisinopriL (PRINIVIL,Z ESTRIL) 5 MG tablet 04-03 00:00: 00 04-03 00:00 :00 No 5mg QD Take 1 tablet (5 mg total) by mouth daily. [facility] aspirin 81 MG EC tablet 04-03 00:00: 00 04-03 00:00 :00 No 81mg QD Take 1 tablet (81 mg total) by mouth daily for 90 days. [facility] DULoxetine (CYMBALTA) 30 MG capsule 04-03 00:00: 00 04-03 00:00 :00 No 30mg QD Take 1 capsule (30 mg total) by mouth daily. [facility] furosemide (LASIX) 20 MG tablet 04-03 00:00: 00 04-03 00:00 :00 No 20mg QD Take 1 tablet (20 mg total) by mouth daily. [facility] lisinopriL (PRINIVIL,Z ESTRIL) 5 MG tablet 04-03 00:00: 00 04-03 00:00 :00 No 5mg QD Take 1 tablet (5 mg total) by mouth daily. [facility] aspirin 81 MG EC tablet 04-03 00:00: 00 04-03 00:00 :00 No 81mg QD Take 1 tablet (81 mg total) by mouth daily for 90 days. [facility] DULoxetine (CYMBALTA) 30 MG capsule 04-03 00:00: 00 04-03 00:00 :00 No 30mg QD Take 1 capsule (30 mg total) by mouth daily. [facility] furosemide (LASIX) 20 MG tablet 04-03 00:00: 00 04-03 00:00 :00 No 20mg QD Take 1 tablet (20 mg total) by mouth daily. [facility] aspirin 81 MG EC tablet 04-03 00:00: 00 04-03 00:00 :00 No 81mg QD Take 1 tablet (81 mg total) by mouth daily for 90 days. [facility] DULoxetine (CYMBALTA) 30 MG capsule 04-03 00:00: 00 04-03 00:00 :00 No 30mg QD Take 1 capsule (30 mg total) by mouth daily. [facility] furosemide (LASIX) 20 MG tablet 04-03 00:00: 00 04-03 00:00 :00 No 20mg QD Take 1 tablet (20 mg total) by mouth daily. [facility] lisinopriL (PRINIVIL,Z ESTRIL) 5 MG tablet 04-03 00:00: 00 04-03 00:00 :00 No 5mg QD Take 1 tablet (5 mg total) by mouth daily. [facility] lisinopriL (PRINIVIL,Z ESTRIL) 5 MG tablet 04-03 00:00: 00 04-03 00:00 :00 No 5mg QD Take 1 tablet (5 mg total) by mouth daily. [facility] aspirin 81 MG EC tablet 04-03 00:00: 00 04-03 00:00 :00 No 81mg QD Take 1 tablet (81 mg total) by mouth daily for 90 days. [facility] DULoxetine (CYMBALTA) 30 MG capsule 04-03 00:00: 00 04-03 00:00 :00 No 30mg QD Take 1 capsule (30 mg total) by mouth daily. [facility] furosemide (LASIX) 20 MG tablet 04-03 00:00: 00 04-03 00:00 :00 No 20mg QD Take 1 tablet (20 mg total) by mouth daily. [facility] lisinopriL (PRINIVIL,Z ESTRIL) 5 MG tablet 04-03 00:00: 00 04-03 00:00 :00 No 5mg QD Take 1 tablet (5 mg total) by mouth daily. [facility] aspirin 81 MG EC tablet 04-03 00:00: 00 04-03 00:00 :00 No 81mg QD Take 1 tablet (81 mg total) by mouth daily for 90 days. [facility] DULoxetine (CYMBALTA) 30 MG capsule 04-03 00:00: 00 04-03 00:00 :00 No 30mg QD Take 1 capsule (30 mg total) by mouth daily. [facility] furosemide (LASIX) 20 MG tablet 04-03 00:00: 00 04-03 00:00 :00 No 20mg QD Take 1 tablet (20 mg total) by mouth daily. [facility] lisinopriL (PRINIVIL,Z ESTRIL) 5 MG tablet 04-03 00:00: 00 04-03 00:00 :00 No 5mg QD Take 1 tablet (5 mg total) by mouth daily. [facility] aspirin 81 MG EC tablet 04-03 00:00: 00 04-03 00:00 :00 No 81mg QD Take 1 tablet (81 mg total) by mouth daily for 90 days. [facility] DULoxetine (CYMBALTA) 30 MG capsule 04-03 00:00: 00 04-03 00:00 :00 No 30mg QD Take 1 capsule (30 mg total) by mouth daily. [facility] furosemide (LASIX) 20 MG tablet 04-03 00:00: 00 04-03 00:00 :00 No 20mg QD Take 1 tablet (20 mg total) by mouth daily. [facility] lisinopriL (PRINIVIL,Z ESTRIL) 5 MG tablet 04-03 00:00: 00 04-03 00:00 :00 No 5mg QD Take 1 tablet (5 mg total) by mouth daily. [facility] aspirin 81 MG EC tablet 04-03 00:00: 00 04-03 00:00 :00 No 81mg QD Take 1 tablet (81 mg total) by mouth daily for 90 days. [facility] DULoxetine (CYMBALTA) 30 MG capsule 04-03 00:00: 00 04-03 00:00 :00 No 30mg QD Take 1 capsule (30 mg total) by mouth daily. [facility] furosemide (LASIX) 20 MG tablet 04-03 00:00: 00 04-03 00:00 :00 No 20mg QD Take 1 tablet (20 mg total) by mouth daily. [facility] lisinopriL (PRINIVIL,Z ESTRIL) 5 MG tablet 04-03 00:00: 00 04-03 00:00 :00 No 5mg QD Take 1 tablet (5 mg total) by mouth daily. [facility] aspirin 81 MG EC tablet 04-03 00:00: 00 04-03 00:00 :00 No 81mg QD Take 1 tablet (81 mg total) by mouth daily for 90 days. [facility] DULoxetine (CYMBALTA) 30 MG capsule 04-03 00:00: 00 04-03 00:00 :00 No 30mg QD Take 1 capsule (30 mg total) by mouth daily. [facility] furosemide (LASIX) 20 MG tablet 04-03 00:00: 00 04-03 00:00 :00 No 20mg QD Take 1 tablet (20 mg total) by mouth daily. [facility] lisinopriL (PRINIVIL,Z ESTRIL) 5 MG tablet 04-03 00:00: 00 04-03 00:00 :00 No 5mg QD Take 1 tablet (5 mg total) by mouth daily. [facility] aspirin 81 MG EC tablet 04-03 00:00: 00 04-03 00:00 :00 No 81mg QD Take 1 tablet (81 mg total) by mouth daily for 90 days. [facility] DULoxetine (CYMBALTA) 30 MG capsule 04-03 00:00: 00 04-03 00:00 :00 No 30mg QD Take 1 capsule (30 mg total) by mouth daily. [facility] furosemide (LASIX) 20 MG tablet 04-03 00:00: 00 04-03 00:00 :00 No 20mg QD Take 1 tablet (20 mg total) by mouth daily. [facility] lisinopriL (PRINIVIL,Z ESTRIL) 5 MG tablet 04-03 00:00: 00 04-03 00:00 :00 No 5mg QD Take 1 tablet (5 mg total) by mouth daily. [facility] aspirin 81 MG EC tablet 04-03 00:00: 00 04-03 00:00 :00 No 81mg QD Take 1 tablet (81 mg total) by mouth daily for 90 days. [facility] DULoxetine (CYMBALTA) 30 MG capsule 04-03 00:00: 00 04-03 00:00 :00 No 30mg QD Take 1 capsule (30 mg total) by mouth daily. [facility] furosemide (LASIX) 20 MG tablet 04-03 00:00: 00 04-03 00:00 :00 No 20mg QD Take 1 tablet (20 mg total) by mouth daily. [facility] lisinopriL (PRINIVIL,Z ESTRIL) 5 MG tablet 04-03 00:00: 00 04-03 00:00 :00 No 5mg QD Take 1 tablet (5 mg total) by mouth daily. [facility] aspirin 81 MG EC tablet 04-03 00:00: 00 04-03 00:00 :00 No 81mg QD Take 1 tablet (81 mg total) by mouth daily for 90 days. [facility] DULoxetine (CYMBALTA) 30 MG capsule 04-03 00:00: 00 04-03 00:00 :00 No 30mg QD Take 1 capsule (30 mg total) by mouth daily. [facility] furosemide (LASIX) 20 MG tablet 04-03 00:00: 00 04-03 00:00 :00 No 20mg QD Take 1 tablet (20 mg total) by mouth daily. [facility] lisinopriL (PRINIVIL,Z ESTRIL) 5 MG tablet 04-03 00:00: 00 04-03 00:00 :00 No 5mg QD Take 1 tablet (5 mg total) by mouth daily. [facility] aspirin 81 MG EC tablet 04-03 00:00: 00 04-03 00:00 :00 No 81mg QD Take 1 tablet (81 mg total) by mouth daily for 90 days. [facility] DULoxetine (CYMBALTA) 30 MG capsule 04-03 00:00: 00 04-03 00:00 :00 No 30mg QD Take 1 capsule (30 mg total) by mouth daily. [facility] furosemide (LASIX) 20 MG tablet 04-03 00:00: 00 04-03 00:00 :00 No 20mg QD Take 1 tablet (20 mg total) by mouth daily. [facility] lisinopriL (PRINIVIL,Z ESTRIL) 5 MG tablet 04-03 00:00: 00 04-03 00:00 :00 No 5mg QD Take 1 tablet (5 mg total) by mouth daily. [facility] aspirin 81 MG EC tablet 04-03 00:00: 00 04-03 00:00 :00 No 81mg QD Take 1 tablet (81 mg total) by mouth daily for 90 days. [facility] DULoxetine (CYMBALTA) 30 MG capsule 04-03 00:00: 00 04-03 00:00 :00 No 30mg QD Take 1 capsule (30 mg total) by mouth daily. [facility] furosemide (LASIX) 20 MG tablet 04-03 00:00: 00 04-03 00:00 :00 No 20mg QD Take 1 tablet (20 mg total) by mouth daily. [facility] lisinopriL (PRINIVIL,Z ESTRIL) 5 MG tablet 04-03 00:00: 00 04-03 00:00 :00 No 5mg QD Take 1 tablet (5 mg total) by mouth daily. [facility] aspirin 81 MG EC tablet 04-03 00:00: 00 04-03 00:00 :00 No 81mg QD Take 1 tablet (81 mg total) by mouth daily for 90 days. [facility] DULoxetine (CYMBALTA) 30 MG capsule 04-03 00:00: 00 04-03 00:00 :00 No 30mg QD Take 1 capsule (30 mg total) by mouth daily. [facility] furosemide (LASIX) 20 MG tablet 04-03 00:00: 00 04-03 00:00 :00 No 20mg QD Take 1 tablet (20 mg total) by mouth daily. [facility] lisinopriL (PRINIVIL,Z ESTRIL) 5 MG tablet 04-03 00:00: 00 04-03 00:00 :00 No 5mg QD Take 1 tablet (5 mg total) by mouth daily. [facility] aspirin 81 MG EC tablet 04-03 00:00: 00 04-03 00:00 :00 No 81mg QD Take 1 tablet (81 mg total) by mouth daily for 90 days. [facility] DULoxetine (CYMBALTA) 30 MG capsule 04-03 00:00: 00 04-03 00:00 :00 No 30mg QD Take 1 capsule (30 mg total) by mouth daily. [facility] furosemide (LASIX) 20 MG tablet 04-03 00:00: 00 04-03 00:00 :00 No 20mg QD Take 1 tablet (20 mg total) by mouth daily. [facility] lisinopriL (PRINIVIL,Z ESTRIL) 5 MG tablet 04-03 00:00: 00 04-03 00:00 :00 No 5mg QD Take 1 tablet (5 mg total) by mouth daily. [facility] aspirin 81 MG EC tablet 04-03 00:00: 00 04-03 00:00 :00 No 81mg QD Take 1 tablet (81 mg total) by mouth daily for 90 days. [facility] DULoxetine (CYMBALTA) 30 MG capsule 04-03 00:00: 00 04-03 00:00 :00 No 30mg QD Take 1 capsule (30 mg total) by mouth daily. [facility] furosemide (LASIX) 20 MG tablet 04-03 00:00: 00 04-03 00:00 :00 No 20mg QD Take 1 tablet (20 mg total) by mouth daily. [facility] lisinopriL (PRINIVIL,Z ESTRIL) 5 MG tablet 04-03 00:00: 00 04-03 00:00 :00 No 5mg QD Take 1 tablet (5 mg total) by mouth daily. [facility] aspirin 81 MG EC tablet 04-03 00:00: 00 04-03 00:00 :00 No 81mg QD Take 1 tablet (81 mg total) by mouth daily for 90 days. [facility] DULoxetine (CYMBALTA) 30 MG capsule 04-03 00:00: 00 04-03 00:00 :00 No 30mg QD Take 1 capsule (30 mg total) by mouth daily. [facility] furosemide (LASIX) 20 MG tablet 04-03 00:00: 00 04-03 00:00 :00 No 20mg QD Take 1 tablet (20 mg total) by mouth daily. [facility] lisinopriL (PRINIVIL,Z ESTRIL) 5 MG tablet 04-03 00:00: 00 04-03 00:00 :00 No 5mg QD Take 1 tablet (5 mg total) by mouth daily. [facility] aspirin 81 MG EC tablet 04-03 00:00: 00 04-03 00:00 :00 No 81mg QD Take 1 tablet (81 mg total) by mouth daily for 90 days. [facility] DULoxetine (CYMBALTA) 30 MG capsule 04-03 00:00: 00 04-03 00:00 :00 No 30mg QD Take 1 capsule (30 mg total) by mouth daily. [facility] furosemide (LASIX) 20 MG tablet 04-03 00:00: 00 04-03 00:00 :00 No 20mg QD Take 1 tablet (20 mg total) by mouth daily. [facility] aspirin 81 MG EC tablet 04-03 00:00: 00 04-03 00:00 :00 No 81mg QD Take 1 tablet (81 mg total) by mouth daily for 90 days. [facility] DULoxetine (CYMBALTA) 30 MG capsule 04-03 00:00: 00 04-03 00:00 :00 No 30mg QD Take 1 capsule (30 mg total) by mouth daily. [facility] furosemide (LASIX) 20 MG tablet 04-03 00:00: 00 04-03 00:00 :00 No 20mg QD Take 1 tablet (20 mg total) by mouth daily. [facility] lisinopriL (PRINIVIL,Z ESTRIL) 5 MG tablet 04-03 00:00: 00 04-03 00:00 :00 No 5mg QD Take 1 tablet (5 mg total) by mouth daily. [facility] gabapentin (NEURONTIN) 300 MG capsule 04-02 00:00: 00 04-03 00:00 :00 No 300mg Q.[id number] 3D Take 1 capsule (300 mg total) by mouth 3 (three) times daily for 90 days. [facility] divalproex (DEPAKOTE) 500 MG EC tablet 04-02 00:00: 00 04-03 00:00 :00 No 500mg Q.5D Take 1 tablet (500 mg total) by mouth 2 (two) times daily for 90 days. [facility] clonazePAM (KlonoPIN) 0.5 MG tablet 04-02 00:00: 00 04-03 00:00 :00 No .25mg Take 0.5 tablets (0.25 mg total) by mouth 2 (two) times daily as needed for Anxiety for up to 30 days. Max Daily Amount: 0.5 mg [facility] gabapentin (NEURONTIN) 300 MG capsule 04-02 00:00: 00 04-03 00:00 :00 No 300mg Q.[id number] 3D Take 1 capsule (300 mg total) by mouth 3 (three) times daily for 90 days. [facility] HYDROcodone -acetaminop hen (NORCO 10-325) 10-325 mg per tablet 04-02 00:00: 00 04-03 00:00 :00 No 1{tbl} Take 1 tablet by mouth every 6 (six) hours as needed for up to 10 days. Max Daily Amount: 4 tablets [facility] HYDROcodone -acetaminop hen (NORCO 10-325) 10-325 mg per tablet 04-02 00:00: 00 04-03 00:00 :00 No 1{tbl} Take 1 tablet by mouth every 6 (six) hours as needed for up to 10 days. Max Daily Amount: 4 tablets [facility] methocarbam oL (ROBAXIN) 500 MG tablet 04-02 00:00: 00 04-03 00:00 :00 No 500mg Q.25D Take 1 tablet (500 mg total) by mouth 4 (four) times daily for 10 days. [facility] methocarbam oL (ROBAXIN) 500 MG tablet 04-02 00:00: 00 04-03 00:00 :00 No 500mg Q.25D Take 1 tablet (500 mg total) by mouth 4 (four) times daily for 10 days. [facility] divalproex (DEPAKOTE) 500 MG EC tablet 04-02 00:00: 00 04-03 00:00 :00 No 500mg Q.5D Take 1 tablet (500 mg total) by mouth 2 (two) times daily for 90 days. [facility] clonazePAM (KlonoPIN) 0.5 MG tablet 04-02 00:00: 00 04-03 00:00 :00 No .25mg Take 0.5 tablets (0.25 mg total) by mouth 2 (two) times daily as needed for Anxiety for up to 30 days. Max Daily Amount: 0.5 mg [facility] gabapentin (NEURONTIN) 300 MG capsule 04-02 00:00: 00 04-03 00:00 :00 No 300mg Q.[id number] 3D Take 1 capsule (300 mg total) by mouth 3 (three) times daily for 90 days. [facility] HYDROcodone -acetaminop hen (NORCO 10-325) 10-325 mg per tablet 04-02 00:00: 00 04-03 00:00 :00 No 1{tbl} Take 1 tablet by mouth every 6 (six) hours as needed for up to 10 days. Max Daily Amount: 4 tablets [facility] methocarbam oL (ROBAXIN) 500 MG tablet 04-02 00:00: 00 04-03 00:00 :00 No 500mg Q.25D Take 1 tablet (500 mg total) by mouth 4 (four) times daily for 10 days. [facility] divalproex (DEPAKOTE) 500 MG EC tablet 04-02 00:00: 00 04-03 00:00 :00 No 500mg Q.5D Take 1 tablet (500 mg total) by mouth 2 (two) times daily for 90 days. [facility] clonazePAM (KlonoPIN) 0.5 MG tablet 04-02 00:00: 00 04-03 00:00 :00 No .25mg Take 0.5 tablets (0.25 mg total) by mouth 2 (two) times daily as needed for Anxiety for up to 30 days. Max Daily Amount: 0.5 mg [facility] gabapentin (NEURONTIN) 300 MG capsule 04-02 00:00: 00 04-03 00:00 :00 No 300mg Q.[id number] 3D Take 1 capsule (300 mg total) by mouth 3 (three) times daily for 90 days. [facility] HYDROcodone -acetaminop hen (NORCO 10-325) 10-325 mg per tablet 04-02 00:00: 00 04-03 00:00 :00 No 1{tbl} Take 1 tablet by mouth every 6 (six) hours as needed for up to 10 days. Max Daily Amount: 4 tablets [facility] methocarbam oL (ROBAXIN) 500 MG tablet 04-02 00:00: 00 04-03 00:00 :00 No 500mg Q.25D Take 1 tablet (500 mg total) by mouth 4 (four) times daily for 10 days. [facility] divalproex (DEPAKOTE) 500 MG EC tablet 04-02 00:00: 00 04-03 00:00 :00 No 500mg Q.5D Take 1 tablet (500 mg total) by mouth 2 (two) times daily for 90 days. [facility] clonazePAM (KlonoPIN) 0.5 MG tablet 04-02 00:00: 00 04-03 00:00 :00 No .25mg Take 0.5 tablets (0.25 mg total) by mouth 2 (two) times daily as needed for Anxiety for up to 30 days. Max Daily Amount: 0.5 mg [facility] gabapentin (NEURONTIN) 300 MG capsule 04-02 00:00: 00 04-03 00:00 :00 No 300mg Q.[id number] 3D Take 1 capsule (300 mg total) by mouth 3 (three) times daily for 90 days. [facility] HYDROcodone -acetaminop hen (NORCO 10-325) 10-325 mg per tablet 04-02 00:00: 00 04-03 00:00 :00 No 1{tbl} Take 1 tablet by mouth every 6 (six) hours as needed for up to 10 days. Max Daily Amount: 4 tablets [facility] methocarbam oL (ROBAXIN) 500 MG tablet 04-02 00:00: 00 04-03 00:00 :00 No 500mg Q.25D Take 1 tablet (500 mg total) by mouth 4 (four) times daily for 10 days. [facility] divalproex (DEPAKOTE) 500 MG EC tablet 04-02 00:00: 00 04-03 00:00 :00 No 500mg Q.5D Take 1 tablet (500 mg total) by mouth 2 (two) times daily for 90 days. [facility] clonazePAM (KlonoPIN) 0.5 MG tablet 04-02 00:00: 00 04-03 00:00 :00 No .25mg Take 0.5 tablets (0.25 mg total) by mouth 2 (two) times daily as needed for Anxiety for up to 30 days. Max Daily Amount: 0.5 mg [facility] gabapentin (NEURONTIN) 300 MG capsule 04-02 00:00: 00 04-03 00:00 :00 No 300mg Q.[id number] 3D Take 1 capsule (300 mg total) by mouth 3 (three) times daily for 90 days. [facility] HYDROcodone -acetaminop hen (NORCO 10-325) 10-325 mg per tablet 04-02 00:00: 00 04-03 00:00 :00 No 1{tbl} Take 1 tablet by mouth every 6 (six) hours as needed for up to 10 days. Max Daily Amount: 4 tablets [facility] methocarbam oL (ROBAXIN) 500 MG tablet 04-02 00:00: 00 04-03 00:00 :00 No 500mg Q.25D Take 1 tablet (500 mg total) by mouth 4 (four) times daily for 10 days. [facility] divalproex (DEPAKOTE) 500 MG EC tablet 04-02 00:00: 00 04-03 00:00 :00 No 500mg Q.5D Take 1 tablet (500 mg total) by mouth 2 (two) times daily for 90 days. [facility] clonazePAM (KlonoPIN) 0.5 MG tablet 04-02 00:00: 00 04-03 00:00 :00 No .25mg Take 0.5 tablets (0.25 mg total) by mouth 2 (two) times daily as needed for Anxiety for up to 30 days. Max Daily Amount: 0.5 mg [facility] gabapentin (NEURONTIN) 300 MG capsule 04-02 00:00: 00 04-03 00:00 :00 No 300mg Q.[id number] 3D Take 1 capsule (300 mg total) by mouth 3 (three) times daily for 90 days. [facility] HYDROcodone -acetaminop hen (NORCO 10-325) 10-325 mg per tablet 04-02 00:00: 00 04-03 00:00 :00 No 1{tbl} Take 1 tablet by mouth every 6 (six) hours as needed for up to 10 days. Max Daily Amount: 4 tablets [facility] methocarbam oL (ROBAXIN) 500 MG tablet 04-02 00:00: 00 04-03 00:00 :00 No 500mg Q.25D Take 1 tablet (500 mg total) by mouth 4 (four) times daily for 10 days. [facility] divalproex (DEPAKOTE) 500 MG EC tablet 04-02 00:00: 00 04-03 00:00 :00 No 500mg Q.5D Take 1 tablet (500 mg total) by mouth 2 (two) times daily for 90 days. [facility] clonazePAM (KlonoPIN) 0.5 MG tablet 04-02 00:00: 00 04-03 00:00 :00 No .25mg Take 0.5 tablets (0.25 mg total) by mouth 2 (two) times daily as needed for Anxiety for up to 30 days. Max Daily Amount: 0.5 mg [facility] gabapentin (NEURONTIN) 300 MG capsule 04-02 00:00: 00 04-03 00:00 :00 No 300mg Q.[id number] 3D Take 1 capsule (300 mg total) by mouth 3 (three) times daily for 90 days. [facility] divalproex (DEPAKOTE) 500 MG EC tablet 04-02 00:00: 00 04-03 00:00 :00 No 500mg Q.5D Take 1 tablet (500 mg total) by mouth 2 (two) times daily for 90 days. [facility] clonazePAM (KlonoPIN) 0.5 MG tablet 04-02 00:00: 00 04-03 00:00 :00 No .25mg Take 0.5 tablets (0.25 mg total) by mouth 2 (two) times daily as needed for Anxiety for up to 30 days. Max Daily Amount: 0.5 mg [facility] gabapentin (NEURONTIN) 300 MG capsule 04-02 00:00: 00 04-03 00:00 :00 No 300mg Q.[id number] 3D Take 1 capsule (300 mg total) by mouth 3 (three) times daily for 90 days. [facility] HYDROcodone -acetaminop hen (NORCO 10-325) 10-325 mg per tablet 04-02 00:00: 00 04-03 00:00 :00 No 1{tbl} Take 1 tablet by mouth every 6 (six) hours as needed for up to 10 days. Max Daily Amount: 4 tablets [facility] HYDROcodone -acetaminop hen (NORCO 10-325) 10-325 mg per tablet 04-02 00:00: 00 04-03 00:00 :00 No 1{tbl} Take 1 tablet by mouth every 6 (six) hours as needed for up to 10 days. Max Daily Amount: 4 tablets [facility] methocarbam oL (ROBAXIN) 500 MG tablet 04-02 00:00: 00 04-03 00:00 :00 No 500mg Q.25D Take 1 tablet (500 mg total) by mouth 4 (four) times daily for 10 days. [facility] methocarbam oL (ROBAXIN) 500 MG tablet 04-02 00:00: 00 04-03 00:00 :00 No 500mg Q.25D Take 1 tablet (500 mg total) by mouth 4 (four) times daily for 10 days. [facility] divalproex (DEPAKOTE) 500 MG EC tablet 04-02 00:00: 00 04-03 00:00 :00 No 500mg Q.5D Take 1 tablet (500 mg total) by mouth 2 (two) times daily for 90 days. [facility] clonazePAM (KlonoPIN) 0.5 MG tablet 04-02 00:00: 00 04-03 00:00 :00 No .25mg Take 0.5 tablets (0.25 mg total) by mouth 2 (two) times daily as needed for Anxiety for up to 30 days. Max Daily Amount: 0.5 mg [facility] gabapentin (NEURONTIN) 300 MG capsule 04-02 00:00: 00 04-03 00:00 :00 No 300mg Q.[id number] 3D Take 1 capsule (300 mg total) by mouth 3 (three) times daily for 90 days. [facility] HYDROcodone -acetaminop hen (NORCO 10-325) 10-325 mg per tablet 04-02 00:00: 00 04-03 00:00 :00 No 1{tbl} Take 1 tablet by mouth every 6 (six) hours as needed for up to 10 days. Max Daily Amount: 4 tablets [facility] methocarbam oL (ROBAXIN) 500 MG tablet 04-02 00:00: 00 04-03 00:00 :00 No 500mg Q.25D Take 1 tablet (500 mg total) by mouth 4 (four) times daily for 10 days. [facility] divalproex (DEPAKOTE) 500 MG EC tablet 04-02 00:00: 00 04-03 00:00 :00 No 500mg Q.5D Take 1 tablet (500 mg total) by mouth 2 (two) times daily for 90 days. [facility] clonazePAM (KlonoPIN) 0.5 MG tablet 04-02 00:00: 00 04-03 00:00 :00 No .25mg Take 0.5 tablets (0.25 mg total) by mouth 2 (two) times daily as needed for Anxiety for up to 30 days. Max Daily Amount: 0.5 mg [facility] gabapentin (NEURONTIN) 300 MG capsule 04-02 00:00: 00 04-03 00:00 :00 No 300mg Q.[id number] 3D Take 1 capsule (300 mg total) by mouth 3 (three) times daily for 90 days. [facility] HYDROcodone -acetaminop hen (NORCO 10-325) 10-325 mg per tablet 04-02 00:00: 00 04-03 00:00 :00 No 1{tbl} Take 1 tablet by mouth every 6 (six) hours as needed for up to 10 days. Max Daily Amount: 4 tablets [facility] methocarbam oL (ROBAXIN) 500 MG tablet 04-02 00:00: 00 04-03 00:00 :00 No 500mg Q.25D Take 1 tablet (500 mg total) by mouth 4 (four) times daily for 10 days. [facility] divalproex (DEPAKOTE) 500 MG EC tablet 04-02 00:00: 00 04-03 00:00 :00 No 500mg Q.5D Take 1 tablet (500 mg total) by mouth 2 (two) times daily for 90 days. [facility] clonazePAM (KlonoPIN) 0.5 MG tablet 04-02 00:00: 00 04-03 00:00 :00 No .25mg Take 0.5 tablets (0.25 mg total) by mouth 2 (two) times daily as needed for Anxiety for up to 30 days. Max Daily Amount: 0.5 mg [facility] gabapentin (NEURONTIN) 300 MG capsule 04-02 00:00: 00 04-03 00:00 :00 No 300mg Q.[id number] 3D Take 1 capsule (300 mg total) by mouth 3 (three) times daily for 90 days. [facility] HYDROcodone -acetaminop hen (NORCO 10-325) 10-325 mg per tablet 04-02 00:00: 00 04-03 00:00 :00 No 1{tbl} Take 1 tablet by mouth every 6 (six) hours as needed for up to 10 days. Max Daily Amount: 4 tablets [facility] methocarbam oL (ROBAXIN) 500 MG tablet 04-02 00:00: 00 04-03 00:00 :00 No 500mg Q.25D Take 1 tablet (500 mg total) by mouth 4 (four) times daily for 10 days. [facility] divalproex (DEPAKOTE) 500 MG EC tablet 04-02 00:00: 00 04-03 00:00 :00 No 500mg Q.5D Take 1 tablet (500 mg total) by mouth 2 (two) times daily for 90 days. [facility] clonazePAM (KlonoPIN) 0.5 MG tablet 04-02 00:00: 00 04-03 00:00 :00 No .25mg Take 0.5 tablets (0.25 mg total) by mouth 2 (two) times daily as needed for Anxiety for up to 30 days. Max Daily Amount: 0.5 mg [facility] gabapentin (NEURONTIN) 300 MG capsule 04-02 00:00: 00 04-03 00:00 :00 No 300mg Q.[id number] 3D Take 1 capsule (300 mg total) by mouth 3 (three) times daily for 90 days. [facility] HYDROcodone -acetaminop hen (NORCO 10-325) 10-325 mg per tablet 04-02 00:00: 00 04-03 00:00 :00 No 1{tbl} Take 1 tablet by mouth every 6 (six) hours as needed for up to 10 days. Max Daily Amount: 4 tablets [facility] methocarbam oL (ROBAXIN) 500 MG tablet 04-02 00:00: 00 04-03 00:00 :00 No 500mg Q.25D Take 1 tablet (500 mg total) by mouth 4 (four) times daily for 10 days. [facility] divalproex (DEPAKOTE) 500 MG EC tablet 04-02 00:00: 00 04-03 00:00 :00 No 500mg Q.5D Take 1 tablet (500 mg total) by mouth 2 (two) times daily for 90 days. [facility] clonazePAM (KlonoPIN) 0.5 MG tablet 04-02 00:00: 00 04-03 00:00 :00 No .25mg Take 0.5 tablets (0.25 mg total) by mouth 2 (two) times daily as needed for Anxiety for up to 30 days. Max Daily Amount: 0.5 mg [facility] gabapentin (NEURONTIN) 300 MG capsule 04-02 00:00: 00 04-03 00:00 :00 No 300mg Q.[id number] 3D Take 1 capsule (300 mg total) by mouth 3 (three) times daily for 90 days. [facility] HYDROcodone -acetaminop hen (NORCO 10-325) 10-325 mg per tablet 04-02 00:00: 00 04-03 00:00 :00 No 1{tbl} Take 1 tablet by mouth every 6 (six) hours as needed for up to 10 days. Max Daily Amount: 4 tablets [facility] methocarbam oL (ROBAXIN) 500 MG tablet 04-02 00:00: 00 04-03 00:00 :00 No 500mg Q.25D Take 1 tablet (500 mg total) by mouth 4 (four) times daily for 10 days. [facility] divalproex (DEPAKOTE) 500 MG EC tablet 04-02 00:00: 00 04-03 00:00 :00 No 500mg Q.5D Take 1 tablet (500 mg total) by mouth 2 (two) times daily for 90 days. [facility] clonazePAM (KlonoPIN) 0.5 MG tablet 04-02 00:00: 00 04-03 00:00 :00 No .25mg Take 0.5 tablets (0.25 mg total) by mouth 2 (two) times daily as needed for Anxiety for up to 30 days. Max Daily Amount: 0.5 mg [facility] gabapentin (NEURONTIN) 300 MG capsule 04-02 00:00: 00 04-03 00:00 :00 No 300mg Q.[id number] 3D Take 1 capsule (300 mg total) by mouth 3 (three) times daily for 90 days. [facility] HYDROcodone -acetaminop hen (NORCO 10-325) 10-325 mg per tablet 04-02 00:00: 00 04-03 00:00 :00 No 1{tbl} Take 1 tablet by mouth every 6 (six) hours as needed for up to 10 days. Max Daily Amount: 4 tablets [facility] methocarbam oL (ROBAXIN) 500 MG tablet 04-02 00:00: 00 04-03 00:00 :00 No 500mg Q.25D Take 1 tablet (500 mg total) by mouth 4 (four) times daily for 10 days. [facility] divalproex (DEPAKOTE) 500 MG EC tablet 04-02 00:00: 00 04-03 00:00 :00 No 500mg Q.5D Take 1 tablet (500 mg total) by mouth 2 (two) times daily for 90 days. [facility] clonazePAM (KlonoPIN) 0.5 MG tablet 04-02 00:00: 00 04-03 00:00 :00 No .25mg Take 0.5 tablets (0.25 mg total) by mouth 2 (two) times daily as needed for Anxiety for up to 30 days. Max Daily Amount: 0.5 mg [facility] gabapentin (NEURONTIN) 300 MG capsule 04-02 00:00: 00 04-03 00:00 :00 No 300mg Q.[id number] 3D Take 1 capsule (300 mg total) by mouth 3 (three) times daily for 90 days. [facility] HYDROcodone -acetaminop hen (NORCO 10-325) 10-325 mg per tablet 04-02 00:00: 00 04-03 00:00 :00 No 1{tbl} Take 1 tablet by mouth every 6 (six) hours as needed for up to 10 days. Max Daily Amount: 4 tablets [facility] methocarbam oL (ROBAXIN) 500 MG tablet 04-02 00:00: 00 04-03 00:00 :00 No 500mg Q.25D Take 1 tablet (500 mg total) by mouth 4 (four) times daily for 10 days. [facility] divalproex (DEPAKOTE) 500 MG EC tablet 04-02 00:00: 00 04-03 00:00 :00 No 500mg Q.5D Take 1 tablet (500 mg total) by mouth 2 (two) times daily for 90 days. [facility] clonazePAM (KlonoPIN) 0.5 MG tablet 04-02 00:00: 00 04-03 00:00 :00 No .25mg Take 0.5 tablets (0.25 mg total) by mouth 2 (two) times daily as needed for Anxiety for up to 30 days. Max Daily Amount: 0.5 mg [facility] gabapentin (NEURONTIN) 300 MG capsule 04-02 00:00: 00 04-03 00:00 :00 No 300mg Q.[id number] 3D Take 1 capsule (300 mg total) by mouth 3 (three) times daily for 90 days. [facility] HYDROcodone -acetaminop hen (NORCO 10-325) 10-325 mg per tablet 04-02 00:00: 00 04-03 00:00 :00 No 1{tbl} Take 1 tablet by mouth every 6 (six) hours as needed for up to 10 days. Max Daily Amount: 4 tablets [facility] methocarbam oL (ROBAXIN) 500 MG tablet 04-02 00:00: 00 04-03 00:00 :00 No 500mg Q.25D Take 1 tablet (500 mg total) by mouth 4 (four) times daily for 10 days. [facility] divalproex (DEPAKOTE) 500 MG EC tablet 04-02 00:00: 00 04-03 00:00 :00 No 500mg Q.5D Take 1 tablet (500 mg total) by mouth 2 (two) times daily for 90 days. [facility] clonazePAM (KlonoPIN) 0.5 MG tablet 04-02 00:00: 00 04-03 00:00 :00 No .25mg Take 0.5 tablets (0.25 mg total) by mouth 2 (two) times daily as needed for Anxiety for up to 30 days. Max Daily Amount: 0.5 mg [facility] gabapentin (NEURONTIN) 300 MG capsule 04-02 00:00: 00 04-03 00:00 :00 No 300mg Q.[id number] 3D Take 1 capsule (300 mg total) by mouth 3 (three) times daily for 90 days. [facility] HYDROcodone -acetaminop hen (NORCO 10-325) 10-325 mg per tablet 04-02 00:00: 00 04-03 00:00 :00 No 1{tbl} Take 1 tablet by mouth every 6 (six) hours as needed for up to 10 days. Max Daily Amount: 4 tablets [facility] methocarbam oL (ROBAXIN) 500 MG tablet 04-02 00:00: 00 04-03 00:00 :00 No 500mg Q.25D Take 1 tablet (500 mg total) by mouth 4 (four) times daily for 10 days. [facility] divalproex (DEPAKOTE) 500 MG EC tablet 04-02 00:00: 00 04-03 00:00 :00 No 500mg Q.5D Take 1 tablet (500 mg total) by mouth 2 (two) times daily for 90 days. [facility] clonazePAM (KlonoPIN) 0.5 MG tablet 04-02 00:00: 00 04-03 00:00 :00 No .25mg Take 0.5 tablets (0.25 mg total) by mouth 2 (two) times daily as needed for Anxiety for up to 30 days. Max Daily Amount: 0.5 mg [facility] gabapentin (NEURONTIN) 300 MG capsule 04-02 00:00: 00 04-03 00:00 :00 No 300mg Q.[id number] 3D Take 1 capsule (300 mg total) by mouth 3 (three) times daily for 90 days. [facility] HYDROcodone -acetaminop hen (NORCO 10-325) 10-325 mg per tablet 04-02 00:00: 00 04-03 00:00 :00 No 1{tbl} Take 1 tablet by mouth every 6 (six) hours as needed for up to 10 days. Max Daily Amount: 4 tablets [facility] methocarbam oL (ROBAXIN) 500 MG tablet 04-02 00:00: 00 04-03 00:00 :00 No 500mg Q.25D Take 1 tablet (500 mg total) by mouth 4 (four) times daily for 10 days. [facility] divalproex (DEPAKOTE) 500 MG EC tablet 04-02 00:00: 00 04-03 00:00 :00 No 500mg Q.5D Take 1 tablet (500 mg total) by mouth 2 (two) times daily for 90 days. [facility] clonazePAM (KlonoPIN) 0.5 MG tablet 04-02 00:00: 00 04-03 00:00 :00 No .25mg Take 0.5 tablets (0.25 mg total) by mouth 2 (two) times daily as needed for Anxiety for up to 30 days. Max Daily Amount: 0.5 mg [facility] gabapentin (NEURONTIN) 300 MG capsule 04-02 00:00: 00 04-03 00:00 :00 No 300mg Q.[id number] 3D Take 1 capsule (300 mg total) by mouth 3 (three) times daily for 90 days. [facility] HYDROcodone -acetaminop hen (NORCO 10-325) 10-325 mg per tablet 04-02 00:00: 00 04-03 00:00 :00 No 1{tbl} Take 1 tablet by mouth every 6 (six) hours as needed for up to 10 days. Max Daily Amount: 4 tablets [facility] methocarbam oL (ROBAXIN) 500 MG tablet 04-02 00:00: 00 04-03 00:00 :00 No 500mg Q.25D Take 1 tablet (500 mg total) by mouth 4 (four) times daily for 10 days. [facility] divalproex (DEPAKOTE) 500 MG EC tablet 04-02 00:00: 00 04-03 00:00 :00 No 500mg Q.5D Take 1 tablet (500 mg total) by mouth 2 (two) times daily for 90 days. [facility] clonazePAM (KlonoPIN) 0.5 MG tablet 04-02 00:00: 00 04-03 00:00 :00 No .25mg Take 0.5 tablets (0.25 mg total) by mouth 2 (two) times daily as needed for Anxiety for up to 30 days. Max Daily Amount: 0.5 mg [facility] gabapentin (NEURONTIN) 300 MG capsule 04-02 00:00: 00 04-03 00:00 :00 No 300mg [id number] 3D Take 1 capsule (300 mg total) by mouth 3 (three) times daily for 90 days. [facility] HYDROcodone -acetaminop hen (NORCO 10-325) 10-325 mg per tablet 04-02 00:00: 00 04-03 00:00 :00 No 1{tbl} Take 1 tablet by mouth every 6 (six) hours as needed for up to 10 days. Max Daily Amount: 4 tablets [facility] methocarbam oL (ROBAXIN) 500 MG tablet 04-02 00:00: 00 04-03 00:00 :00 No 500mg Q.25D Take 1 tablet (500 mg total) by mouth 4 (four) times daily for 10 days. [facility] divalproex (DEPAKOTE) 500 MG EC tablet 04-02 00:00: 00 04-03 00:00 :00 No 500mg Q.5D Take 1 tablet (500 mg total) by mouth 2 (two) times daily for 90 days. [facility] clonazePAM (KlonoPIN) 0.5 MG tablet 04-02 00:00: 00 04-03 00:00 :00 No .25mg Take 0.5 tablets (0.25 mg total) by mouth 2 (two) times daily as needed for Anxiety for up to 30 days. Max Daily Amount: 0.5 mg [facility] gabapentin (NEURONTIN) 300 MG capsule 04-02 00:00: 00 04-03 00:00 :00 No 300mg [id number] 3D Take 1 capsule (300 mg total) by mouth 3 (three) times daily for 90 days. [facility] HYDROcodone -acetaminop hen (NORCO 10-325) 10-325 mg per tablet 04-02 00:00: 00 04-03 00:00 :00 No 1{tbl} Take 1 tablet by mouth every 6 (six) hours as needed for up to 10 days. Max Daily Amount: 4 tablets [facility] methocarbam oL (ROBAXIN) 500 MG tablet 04-02 00:00: 00 04-03 00:00 :00 No 500mg Q.25D Take 1 tablet (500 mg total) by mouth 4 (four) times daily for 10 days. [facility] divalproex (DEPAKOTE) 500 MG EC tablet 04-02 00:00: 00 04-03 00:00 :00 No 500mg Q.5D Take 1 tablet (500 mg total) by mouth 2 (two) times daily for 90 days. [facility] clonazePAM (KlonoPIN) 0.5 MG tablet 04-02 00:00: 00 04-03 00:00 :00 No .25mg Take 0.5 tablets (0.25 mg total) by mouth 2 (two) times daily as needed for Anxiety for up to 30 days. Max Daily Amount: 0.5 mg [facility] gabapentin (NEURONTIN) 300 MG capsule 04-02 00:00: 00 04-03 00:00 :00 No 300mg Q.[id number] 3D Take 1 capsule (300 mg total) by mouth 3 (three) times daily for 90 days. [facility] HYDROcodone -acetaminop hen (NORCO 10-325) 10-325 mg per tablet 04-02 00:00: 00 04-03 00:00 :00 No 1{tbl} Take 1 tablet by mouth every 6 (six) hours as needed for up to 10 days. Max Daily Amount: 4 tablets [facility] methocarbam oL (ROBAXIN) 500 MG tablet 04-02 00:00: 00 04-03 00:00 :00 No 500mg Q.25D Take 1 tablet (500 mg total) by mouth 4 (four) times daily for 10 days. [facility] divalproex (DEPAKOTE) 500 MG EC tablet 04-02 00:00: 00 04-03 00:00 :00 No 500mg Q.5D Take 1 tablet (500 mg total) by mouth 2 (two) times daily for 90 days. [facility] clonazePAM (KlonoPIN) 0.5 MG tablet 04-02 00:00: 00 04-03 00:00 :00 No .25mg Take 0.5 tablets (0.25 mg total) by mouth 2 (two) times daily as needed for Anxiety for up to 30 days. Max Daily Amount: 0.5 mg [facility] divalproex (DEPAKOTE) 500 MG EC tablet 04-02 00:00: 00 04-03 00:00 :00 No 500mg Q.5D Take 1 tablet (500 mg total) by mouth 2 (two) times daily for 90 days. [facility] clonazePAM (KlonoPIN) 0.5 MG tablet 04-02 00:00: 00 04-03 00:00 :00 No .25mg Take 0.5 tablets (0.25 mg total) by mouth 2 (two) times daily as needed for Anxiety for up to 30 days. Max Daily Amount: 0.5 mg [facility] gabapentin (NEURONTIN) 300 MG capsule 04-02 00:00: 00 04-03 00:00 :00 No 300mg Q.[id number] 3D Take 1 capsule (300 mg total) by mouth 3 (three) times daily for 90 days. [facility] HYDROcodone -acetaminop hen (NORCO 10-325) 10-325 mg per tablet 04-02 00:00: 00 04-03 00:00 :00 No 1{tbl} Take 1 tablet by mouth every 6 (six) hours as needed for up to 10 days. Max Daily Amount: 4 tablets [facility] methocarbam oL (ROBAXIN) 500 MG tablet 04-02 00:00: 00 04-03 00:00 :00 No 500mg Q.25D Take 1 tablet (500 mg total) by mouth 4 (four) times daily for 10 days. [facility] lacosamide (VIMPAT) 200 mg in NaCl 0.9% (NS) 50 mL piggyback 12-11 19:45: 00 12-11 19:57 :00 No 200mg 200 mg, IV Piggyback, ONCE, 1 dose, On Arpita 12/11/22 at 1445, Administer over 30 Minutes, 50 mL
Facu lty member approving Restricted medication : Alfonso ALVARADO [facility] ketorolac (TORADOL) injection 15 mg 12-11 18:15: 00 12-11 17:25 :00 No 15mg 15 mg, Slow IV Push, ONCE, 1 dose, On Arpita 12/11/22 at 1315, MICHAEL [facility] iopamidol (ISOVUE 370-500 mL) injection 80 mL 12-11 16:30: 00 12-11 16:27 :00 No [id number] 80mL 80 mL, Intravenou s, ONCE, 1 dose, On Arpita 12/11/22 at 1130, Routine [facility] nitroglycer in (NITROL) 2 % ointment 0.5 Inch 12-11 15:30: 00 12-11 14:31 :00 No .5[in_u s] 0.5 Inch, Transderma l (Apply To Skin), ONCE, 1 dose, On Thu12/11/22 at 1030, [facility] aspirin chewable tablet 324 mg 12-11 15:30: 00 12-11 14:30 :00 No 324mg 324 mg, Oral, ONCE, 1 dose, On Thu12/11/22 at 1030, Routine [facility] ondansetron (ZOFRAN (PF)) injection 4 mg 12-11 15:30: 00 12-11 14:29 :00 No 4mg 4 mg, Slow IV Push, ONCE, 1 dose, On Arpita 12/11/22 at 1030, [facility] LORazepam (ATIVAN) injection 1 mg 12-11 15:00: 00 12-11 14:57 :00 No 1mg 1 mg, Slow IV Push, ONCE, 1 dose, On Arpita 12/11/22 at 1000, [facility] Lacosamide (VIMPAT) 100 mg tablet 12-11 00:00: 00 Yes [id number] 100mg Take 1 tablet by mouth in the morning and 1 tablet in the evening. [facility] acetaminoph en-codeine (TYLENOL #3) 300-30 mg tablet 1 tablet 11-18 05:30: 00 11-18 05:30 :00 No 1{tbl} 1 tablet, Oral, ONCE, 1 dose, On Thu11/18/22 at 0030, [facility] methocarbam oL (ROBAXIN) tablet 1,000 mg 11-18 05:30: 00 11-18 05:30 :00 No 1000mg 1,000 mg, Oral, ONCE, 1 dose, On Thu11/18/22 at 0030, [facility] ondansetron (ZOFRAN (PF)) injection 4 mg 11-18 04:45: 00 11-18 03:38 :00 No 4mg 4 mg, Slow IV Push, ONCE, 1 dose, On Thu11/17/22 at 2345, MICHAEL [facility] morpHINE (4 mg/mL) injection 4 mg 11-18 03:45: 00 11-18 03:38 :00 No 4mg 4 mg, Slow IV Push, ONCE, 1 dose, On Thu11/17/22 at 2245, Routine [facility] methocarbam oL (ROBAXIN) injection 1,000 mg 11-18 00:30: 00 11-17 23:47 :00 No 1000mg 1,000 mg, Intravenou s, ONCE, 1 dose, On Thu11/17/22 at 1930, MICHAEL [facility] methocarbam oL 500 mg tablet 11-18 00:00: 00 Yes [id number] 1000mg Take 2 tablets by mouth 4 (four) times daily as needed for Pain (scale 7-10). [facility] methocarbam oL 500 mg tablet 11-18 00:00: 00 Yes [id number] 1000mg Take 2 tablets by mouth 4 (four) times daily as needed for Pain (scale 7-10). [facility] acetaminoph en-codeine 300-60 mg tablet 11-18 00:00: 00 11-26 04:59 :00 No [id number] 1{tbl} Take 1 tablet by mouth every 6 (six) hours as needed for Pain for up to 7 days. Indication s: acute pain [facility] ketorolac (TORADOL) injection 15 mg 11-18 00:00: 00 11-17 23:08 :00 No 15mg 15 mg, Slow IV Push, ONCE, 1 dose, On Thu11/17/22 at 1900, Routine [facility] morpHINE (4 mg/mL) injection 4 mg 11-17 23:45: 00 11-17 23:49 :00 No 4mg 4 mg, Slow IV Push, ONCE, 1 dose, On Thu11/17/22 at 1845, Routine [facility] ondansetron (ZOFRAN (PF)) injection 4 mg 11-17 23:15: 00 11-17 23:06 :00 No 4mg 4 mg, Slow IV Push, ONCE, 1 dose, On Thu11/17/22 at 1815, MICHAEL [facility] lisinopriL (PRINIVIL,Z ESTRIL) tablet 10 mg 08-02 15:00: 00 Yes 10mg 10 mg, Oral, DAILY, First dose on Thu08/02/22 at 0900, Until Discontinu ed, Routine [facility] predniSONE (DELTASONE) tablet 40 mg 08-02 15:00: 00 08-07 14:59 :00 No 40mg 40 mg, Oral, DAILY, 5 doses, First dose on Thu08/02/22 at 0900, Last dose on Thu08/06/22 at 0900, Routine [facility] morpHINE (2 mg/mL) injection 2 mg 08-02 03:29: 15 Yes 2mg 2 mg, Slow IV Push, Q4HPRN, Starting on Thu08/01/22 at 2129, Until Discontinu ed, Routine, Pain (scale 7-10) [facility] levETIRAcet am (KEPPRA) in NACL (ISO-OS) 1,000 mg/100 mL RTU 08-02 00:00: 00 Yes 1000mg 1,000 mg, IV Piggyback, Q12H, First dose on Thu08/01/22 at 1800, Until Discontinu ed, Administer over 15 Minutes, 100 mL [facility] MULTIVITAMI N ORAL 08-01 23:49: 34 Yes 1{tbl} Take 1 Tab by mouth daily. [facility] omega-3 fatty acids-vitam in E (FISH OIL) 1,000 mg capsule 08-01 23:49: 34 Yes 1g Take 1 g by mouth daily. [facility] loratadine (CLARITIN LIQUI-GEL) 10 mg capsule 08-01 23:49: 34 Yes Take by mouth daily. [facility] ondansetron 4 mg tablet 08-01 23:49: 34 Yes 4mg Take 4 mg by mouth every 8 (eight) hours as needed. [facility] pantoprazol e 40 mg EC tablet 08-01 23:49: 34 Yes 40mg Take 40 mg by mouth daily. [facility] MULTIVITAMI N ORAL 08-01 23:49: 34 Yes 1{tbl} Take 1 Tab by mouth daily. [facility] omega-3 fatty acids-vitam in E (FISH OIL) 1,000 mg capsule 08-01 23:49: 34 Yes 1g Take 1 g by mouth daily. [facility] loratadine (CLARITIN LIQUI-GEL) 10 mg capsule 08-01 23:49: 34 Yes Take by mouth daily. [facility] ondansetron 4 mg tablet 08-01 23:49: 34 Yes 4mg Take 4 mg by mouth every 8 (eight) hours as needed. [facility] pantoprazol e 40 mg EC tablet 08-01 23:49: 34 Yes 40mg Take 40 mg by mouth daily. [facility] MULTIVITAMI N ORAL 08-01 23:49: 34 Yes 1{tbl} Take 1 Tab by mouth daily. [facility] omega-3 fatty acids-vitam in E (FISH OIL) 1,000 mg capsule 08-01 23:49: 34 Yes 1g Take 1 g by mouth daily. [facility] loratadine (CLARITIN LIQUI-GEL) 10 mg capsule 08-01 23:49: 34 Yes Take by mouth daily. [facility] ondansetron 4 mg tablet 08-01 23:49: 34 Yes 4mg Take 4 mg by mouth every 8 (eight) hours as needed. [facility] pantoprazol e 40 mg EC tablet 08-01 23:49: 34 Yes 40mg Take 40 mg by mouth daily. [facility] MULTIVITAMI N ORAL 08-01 23:49: 34 Yes 1{tbl} Take 1 Tab by mouth daily. [facility] omega-3 fatty acids-vitam in E (FISH OIL) 1,000 mg capsule 08-01 23:49: 34 Yes 1g Take 1 g by mouth daily. [facility] loratadine (CLARITIN LIQUI-GEL) 10 mg capsule 08-01 23:49: 34 Yes Take by mouth daily. [facility] ondansetron 4 mg tablet 08-01 23:49: 34 Yes 4mg Take 4 mg by mouth every 8 (eight) hours as needed. [facility] pantoprazol e 40 mg EC tablet 08-01 23:49: 34 Yes 40mg Take 40 mg by mouth daily. [facility] MULTIVITAMI N ORAL 08-01 23:49: 34 Yes 1{tbl} Take 1 Tab by mouth daily. [facility] omega-3 fatty acids-vitam in E (FISH OIL) 1,000 mg capsule 08-01 23:49: 34 Yes 1g Take 1 g by mouth daily. [facility] loratadine (CLARITIN LIQUI-GEL) 10 mg capsule 08-01 23:49: 34 Yes Take by mouth daily. [facility] ondansetron 4 mg tablet 08-01 23:49: 34 Yes 4mg Take 4 mg by mouth every 8 (eight) hours as needed. [facility] pantoprazol e 40 mg EC tablet 08-01 23:49: 34 Yes 40mg Take 40 mg by mouth daily. [facility] benzonatate (TESSALON PERLES) capsule 100 mg 08-01 20:00: 00 Yes 100mg 100 mg, Oral, Q8H, First dose on Thu08/01/22 at 1400, Until Discontinu ed, Routine [facility] ipratropium -albuteroL (DUONEB) 0.5 mg-3 mg(2.5 mg base)/3 mL nebulizer solution 3 mL 08-01 18:00: 00 Yes 3mL 3 mL, Inhalation , QID, First dose on Thu08/01/22 at 1200, Until Discontinu ed, Routine [facility] ipratropium -albuteroL (DUONEB) 0.5 mg-3 mg(2.5 mg base)/3 mL nebulizer solution 3 mL 08-01 17:07: 07 Yes 3mL 3 mL, Inhalation , QIDPRN, Starting on Thu08/01/22 at 1107, Until Discontinu ed, MICHAEL, Wheezing, Shortness of Breath [facility] sulfur hexafluorid e microsphr (LUMASON) injection 5 mL 08-01 17:00: 00 08-01 17:00 :00 No [id number] 5mL 5 mL, Intravenou s, ONCE, 1 dose, On Thu08/01/22 at 1100, Routine
community board member approving Restricted medication : WOODY MONTEZ [facility] pantoprazol e (PROTONIX) EC tablet 40 mg 08-01 15:00: 00 Yes 40mg 40 mg, Oral, DAILY, First dose on Thu08/01/22 at 0900, Until Discontinu ed, Routine [facility] aspirin chewable tablet 81 mg 08-01 15:00: 00 Yes 81mg 81 mg, Oral, DAILY, First dose on Thu08/01/22 at 0900, Until Discontinu ed, Routine [facility] amLODIPine (NORVASC) tablet 10 mg 08-01 15:00: 00 Yes 10mg 10 mg, Oral, DAILY, First dose on Thu08/01/22 at 0900, Until Discontinu ed, Routine [facility] levETIRAcet am (KEPPRA) tablet 500 mg 08-01 14:00: 00 08-01 23:56 :35 No 500mg 500 mg, Oral, BID, First dose on Thu08/01/22 at 0800, Until Discontinu ed, Routine [facility] carvediloL (COREG) tablet 6.25 mg 08-01 14:00: 00 08-01 17:29 :13 No 6.25mg 6.25 mg, Oral, BID MEALS, First dose on Thu08/01/22 at 0800, Until Discontinu ed, Routine [facility] levETIRAcet am (KEPPRA) in NACL (ISO-OS) 1,000 mg/100 mL RTU 08-01 06:45: 00 08-01 06:32 :00 No 1000mg 1,000 mg, IV Piggyback, ONCE, 1 dose, On Thu08/01/22 at 0045, Administer over 15 Minutes, 100 mL [facility] LORazepam (ATIVAN) injection 1 mg 08-01 05:52: 54 Yes 1mg 1 mg, Slow IV Push, Q4HPRN, Starting on Thu07/31/22 at 2352, Until Discontinu ed, Routine, Seizures, Agitation, Anxiety, ETOH / Cocaine Withdrawl [facility] foLIC acid (FOLATE) tablet 1 mg 08-01 05:45: 00 Yes 1mg 1 mg, Oral, DAILY, First dose on Thu07/31/22 at 2345, Until Discontinu ed, Routine [facility] thiamine (VITAMIN B1) tablet 100 mg 08-01 05:45: 00 Yes 100mg 100 mg, Oral, DAILY, First dose on Thu07/31/22 at 2345, Until Discontinu ed, Routine [facility] LORazepam (ATIVAN) injection 0.5 mg 08-01 05:30: 00 08-01 05:29 :00 No .5mg 0.5 mg, Slow IV Push, ONCE, 1 dose, On Thu07/31/22 at 2330, MICHAEL [facility] atorvastati n (LIPITOR) tablet 40 mg 08-01 03:00: 00 Yes 40mg 40 mg, Oral, QHS, First dose on Thu07/31/22 at 2100, Until Discontinu ed, Routine [facility] diphenhydrA MINE (BENADRYL) tablet 25 mg 08-01 00:32: 02 Yes 25mg 25 mg, Oral, Q6HPRN, Starting on Thu07/31/22 at 1832, Until Discontinu ed, Routine, Itching [facility] enoxaparin (LOVENOX) injection 40 mg 07-31 23:00: 00 Yes 40mg 40 mg, Subcutaneo us, DAILY, First dose on Arpita 07/31/22 at 1700, Until Discontinu ed, Routine [facility] morpHINE (2 mg/mL) injection 2 mg 07-31 23:00: 00 07-31 22:29 :00 No 2mg 2 mg, Slow IV Push, ONCE, 1 dose, On Arpita 07/31/22 at 1700, Routine [facility] HYDROcodone -acetaminop hen (NORCO) 10-325 mg tablet 1 tablet 07-31 22:01: 36 Yes 1{tbl} 1 tablet, Oral, Q6HPRN, Starting on Arpita 07/31/22 at 1601, Until Discontinu ed, Routine, Pain (scale 7-10) [facility] HYDROcodone -acetaminop hen (NORCO 5) 5-325 mg tablet 1 tablet 07-31 22:01: 34 08-02 22:00 :34 No 1{tbl} 1 tablet, Oral, Q6HPRN, Starting on Arpita 07/31/22 at 1601, Until 08/02/22 at 1600, Routine, Pain (scale 4-6) [facility] acetaminoph en (TYLENOL) tablet 650 mg 07-31 22:01: 33 Yes 650mg 650 mg, Oral, Q6HPRN, Starting on Arpita 07/31/22 at 1601, Until Discontinu ed, Routine, Pain (scale 1-3) [facility] ketorolac (TORADOL) injection 15 mg 07-31 21:45: 00 07-31 20:50 :00 No 15mg 15 mg, Slow IV Push, ONCE, 1 dose, On Arpita 07/31/22 at 1545, Routine [facility] ondansetron (ZOFRAN (PF)) injection 4 mg 07-31 21:00: 00 07-31 20:47 :00 No 4mg 4 mg, Slow IV Push, ONCE, 1 dose, On Arpita 07/31/22 at 1500, MICHAEL [facility] furosemide (LASIX) injection 40 mg 07-31 20:15: 00 Yes 40mg 40 mg, Slow IV Push, Q12H, First dose on Arpita 07/31/22 at 1415, Until Discontinu ed, Routine [facility] methylpredn isolone sod succ (SOLU-MEDRO L) injection 125 mg 07-31 19:30: 00 07-31 18:54 :00 No 125mg 125 mg, Slow IV Push, ONCE NOW, 1 dose, On Arpita 07/31/22 at 1330, MICHAEL [facility] ipratropium -albuteroL (DUONEB) 0.5 mg-3 mg(2.5 mg base)/3 mL nebulizer solution 3 mL 07-31 19:30: 00 07-31 18:48 :00 No 3mL 3 mL, Inhalation , ONCE, 1 dose, On Arpita 07/31/22 at 1330, MICHAEL [facility] pantoprazol e 40 mg EC tablet 07-31 17:15: 40 Yes 40mg Take 40 mg by mouth daily. [facility] MULTIVITAMI N ORAL 07-31 15:50: 57 Yes 1{tbl} Take 1 Tab by mouth daily. [facility] loratadine (CLARITIN LIQUI-GEL) 10 mg capsule 07-31 15:50: 57 Yes Take by mouth daily. [facility] ondansetron 4 mg tablet 07-31 15:50: 57 Yes 4mg Take 4 mg by mouth every 8 (eight) hours as needed. [facility] omega-3 fatty acids-vitam in E (FISH OIL) 1,000 mg capsule 07-31 15:21: 27 Yes 1g Take 1 g by mouth daily. [facility] TAKE ONE (1) TABLET(S) BY MOUTH THREE TIMES A DAY NEEDED. 07-28 00:00: 00 No Methylpredn isolone 4 mg tablet 2021-07 00:00: 00 05-12 04:59 :00 No [id number] 4mg Take 1 tablet through enteral tube in the morning for 1 dose. [facility] Methylpredn isolone 4 mg tablet 2021-07 00:00: 00 05-11 04:59 :00 No [id number] 4mg Take 1 tablet through enteral tube every 12 (twelve) hours for 2 doses. [facility] MULTIVITAMI N ORAL 2021-07 14:44: 48 Yes 1{tbl} Take 1 Tab by mouth daily. [facility] omega-3 fatty acids-vitam in E (FISH OIL) 1,000 mg capsule 2021-07 14:44: 48 Yes 1g Take 1 g by mouth daily. [facility] loratadine (CLARITIN LIQUI-GEL) 10 mg capsule 2021-07 14:44: 48 Yes Take by mouth daily. [facility] ondansetron (ZOFRAN) 4 mg tablet 2021-07 14:44: 48 Yes 4mg Take 4 mg by mouth every 8 (eight) hours as needed. [facility] pantoprazol e (PROTONIX) 40 mg EC tablet 2021-07 14:44: 48 Yes 40mg Take 40 mg by mouth daily. [facility] DULoxetine (CYMBALTA) capsule 30 mg 2021-07 14:00: 00 Yes 30mg 30 mg, Oral, DAILY, First dose on Arpita 05/08/22 at 0900, Until Discontinu ed, Routine [facility] divalproex (DEPAKOTE) EC tablet 1,000 mg 2021-07 13:00: 00 Yes 1000mg 1,000 mg, Oral, BID, First dose (after last modificati on) on Arpita 05/08/22 at 0800, Until Discontinu ed, Routine [facility] Methylpredn isolone (MEDROL) tablet 4 mg 2021-07 08:50: 10 05-09 08:59 :00 No 4mg 4 mg, Oral, Q8H TAPER, 3 doses, First dose on Thu05/08/22 at 0400, Last dose on Thu05/08/22 at 2000, Routine [facility] acetaminoph en-codeine (TYLENOL #3) 300-30 mg tablet 1 tablet 2021-07 04:07: 01 Yes 1{tbl} 1 tablet, Oral, Q4HPRN, Starting on Thu05/07/22 at 2307, Until Discontinu ed, Routine, Pain (scale 7-10) [facility] morpHINE (2 mg/mL) injection 2 mg 2021-07 03:03: 15 Yes 2mg 2 mg, Slow IV Push, Q4HPRN, Starting on Thu05/07/22 at 2203, Until Discontinu ed, Routine, Pain (scale 7-10) [facility] LORazepam (ATIVAN) tablet 1 mg 2021-07 00:02: 18 Yes 1mg 1 mg, Oral, Q6HPRN, Starting on Thu05/07/22 at 1902, Until Discontinu ed, Routine, Anxiety [facility] cyclobenzap rine 5 mg tablet 2021-07 00:00: 00 Yes [id number] 5mg Take 1 tablet by mouth in the morning and 1 tablet at noon and 1 tablet in the evening. [facility] cyclobenzap rine 5 mg tablet 2021-07 00:00: 00 Yes [id number] 5mg Take 1 tablet by mouth in the morning and 1 tablet at noon and 1 tablet in the evening. [facility] cyclobenzap rine 5 mg tablet 2021-07 00:00: 00 Yes [id number] 5mg Take 1 tablet by mouth in the morning and 1 tablet at noon and 1 tablet in the evening. [facility] cyclobenzap rine 5 mg tablet 2021-07 00:00: 00 Yes [id number] 5mg Take 1 tablet by mouth in the morning and 1 tablet at noon and 1 tablet in the evening. [facility] cyclobenzap rine 5 mg tablet 2021-07 00:00: 00 Yes [id number] 5mg Take 1 tablet by mouth in the morning and 1 tablet at noon and 1 tablet in the evening. [facility] cyclobenzap rine 5 mg tablet 2021-07 00:00: 00 Yes [id number] 5mg Take 1 tablet by mouth in the morning and 1 tablet at noon and 1 tablet in the evening. [facility] cyclobenzap rine 5 mg tablet 2021-07 00:00: 00 Yes [id number] 5mg Take 1 tablet by mouth in the morning and 1 tablet at noon and 1 tablet in the evening. [facility] DULoxetine (CYMBALTA) 30 mg capsule 2021-07 00:00: 00 06-08 05:59 :00 No [id number] 60mg Take 2 capsules by mouth in the morning for 30 days. [facility] divalproex (DEPAKOTE) 250 mg EC tablet 2021-07 00:00: 00 06-08 05:59 :00 No [id number] 750mg Take 3 tablets by mouth every 8 (eight) hours for 30 days. [facility] LORazepam 1 mg tablet 2021-07 00:00: 00 05-19 04:59 :00 No [id number] 1mg Take 1 tablet by mouth every 6 (six) hours as needed for Anxiety or Agitation for up to 10 days. [facility] acetaminoph en-codeine 300-30 mg tablet 2021-07 00:00: 00 05-16 04:59 :00 No [id number] 1{tbl} Take 1 tablet by mouth every 4 (four) hours as needed for Pain (scale 7-10) for up to 7 days. Indication s: acute pain [facility] Methylpredn isolone 4 mg tablet 2021-07 00:00: 00 05-10 04:59 :00 No [id number] 4mg Take 1 tablet by mouth every 8 (eight) hours for 3 doses. [facility] divalproex (DEPAKOTE) EC tablet 750 mg 2021-07 01:00: 00 05-08 09:40 :23 No 750mg 750 mg, Oral, BID, First dose on Thu05/06/22 at 2000, Until Discontinu ed, Routine [facility] levETIRAcet am (KEPPRA) tablet 1,500 mg 2021-07 13:00: 00 05-06 18:38 :22 No 1500mg 1,500 mg, Oral, BID, First dose (after last modificati on) on Thu05/06/22 at 0800, Until Discontinu ed, Routine [facility] levETIRAcet am (KEPPRA) in NACL (ISO-OS) 1,000 mg/100 mL RTU 2021-07 05:00: 00 05-06 05:46 :00 No 1000mg 1,000 mg, IV Piggyback, ONCE, 1 dose, On Thu05/06/22 at 0000, Administer over 15 Minutes, 100 mL [facility] methocarbam oL (ROBAXIN) tablet 500 mg 2021-07 02:15: 00 05-06 23:21 :42 No 500mg 500 mg, Oral, QID, First dose on Thu05/05/22 at 2115, Until Discontinu ed, Routine [facility] LORazepam (ATIVAN) tablet 2 mg 2021-07 01:30: 00 05-06 01:03 :00 No 2mg 2 mg, Oral, ONCE, 1 dose, On Thu05/05/22 at 2030, Routine [facility] levETIRAcet am (KEPPRA) tablet 1,000 mg 2021-07 01:00: 00 05-06 04:48 :06 No 1000mg 1,000 mg, Oral, BID, First dose on Thu05/05/22 at 2000, Until Discontinu ed, Routine [facility] enoxaparin (LOVENOX) injection 40 mg 2021-07 00:15: 00 Yes 40mg 40 mg, Subcutaneo us, Q24H, First dose on Thu05/05/22 at 1915, Until Discontinu ed, Routine [facility] levETIRAcet am (KEPPRA) in NACL (ISO-OS) 1,000 mg/100 mL RTU 2021-07 19:45: 00 05-05 20:05 :00 No 1000mg 1,000 mg, IV Piggyback, ONCE, 1 dose, On Thu05/05/22 at 1445, Administer over 15 Minutes, 100 mL [facility] clonazePAM (KLONOPIN) tablet 0.5 mg 2021-07 19:30: 00 Yes .5mg 0.5 mg, Oral, BID, First dose on Thu05/05/22 at 1430, Until Discontinu ed, Routine [facility] ibuprofen (IBU) tablet 600 mg 2021-07 19:30: 00 Yes 600mg 600 mg, Oral, TID MEALS, First dose on Thu05/05/22 at 1430, Until Discontinu ed, Routine [facility] gabapentin (NEURONTIN) capsule 300 mg 2021-07 19:30: 00 Yes 300mg 300 mg, Oral, TID, First dose on Thu05/05/22 at 1430, Until Discontinu ed, Routine [facility] cyclobenzap rine (FLEXERIL) tablet 5 mg 2021-07 19:30: 00 Yes 5mg 5 mg, Oral, TID, First dose on Thu05/05/22 at 1430, Until Discontinu ed, Routine [facility] acetaminoph en (TYLENOL) tablet 1,000 mg 2021-07 19:30: 00 Yes 1000mg 1,000 mg, Oral, Q8H, First dose on Thu05/05/22 at 1430, Until Discontinu ed, Routine [facility] pantoprazol e (PROTONIX) EC tablet 40 mg 2021-07 14:00: 00 Yes 40mg 40 mg, Oral, DAILY, First dose on Thu05/05/22 at 0900, Until Discontinu ed, Routine [facility] docusate (COLACE) capsule 100 mg 2021-07 14:00: 00 Yes 100mg 100 mg, Oral, DAILY, First dose on Thu05/05/22 at 0900, Until Discontinu ed, Routine [facility] HYDROcodone -acetaminop hen (NORCO) 10-325 mg tablet 1 tablet 2021-07 10:32: 02 05-05 19:18 :52 No 1{tbl} 1 tablet, Oral, Q6HPRN, Starting on Thu05/05/22 at 0532, Until Thu05/05/22 at 1418, Routine, Pain (scale 7-10) [facility] ondansetron (ZOFRAN (PF)) injection 4 mg 2021-07 06:49: 57 Yes 4mg 4 mg, Slow IV Push, Q6HPRN, Starting on Thu05/05/22 at 0149, Until Discontinu ed, Routine, Nausea and Vomiting (N/V) [facility] HYDROcodone -acetaminop hen (NORCO 5) 5-325 mg tablet 1 tablet 2021-07 06:49: 41 05-05 10:32 :14 No 1{tbl} 1 tablet, Oral, Q6HPRN, Starting on Thu05/05/22 at 0149, Until Thu05/05/22 at 0532, Routine, Pain (scale 7-10) [facility] acetaminoph en (TYLENOL) tablet 325 mg 2021-07 06:49: 39 05-05 19:18 :52 No 325mg 325 mg, Oral, Q4HPRN, Starting on Thu05/05/22 at 0149, Until Thu05/05/22 at 1418, Routine, Pain (scale 4-6) [facility] ondansetron (ZOFRAN) tablet 4 mg 2021-07 04:00: 00 05-05 03:26 :00 No 4mg 4 mg, Oral, ONCE, 1 dose, On Thu05/04/22 at 2300, Routine [facility] morpHINE (2 mg/mL) injection 2 mg 2021-07 04:00: 00 05-05 03:26 :00 No 2mg 2 mg, Slow IV Push, ONCE, 1 dose, On Thu05/04/22 at 2300, Routine [facility] aspirin 81 mg chewable tablet 04-16 00:00: 00 Yes [id number] 81mg Take 1 tablet by mouth in the morning. [facility] aspirin 81 mg chewable tablet 2021-04-16 00:00: 00 Yes [id number] 81mg Take 1 tablet by mouth in the morning. [facility] aspirin 81 mg chewable tablet 04-16 00:00: 00 Yes [id number] 81mg Take 1 tablet by mouth in the morning. [facility] aspirin 81 mg chewable tablet 04-16 00:00: 00 Yes [id number] 81mg Take 1 tablet by mouth in the morning. [facility] aspirin 81 mg chewable tablet 04-16 00:00: 00 Yes [id number] 81mg Take 1 tablet by mouth in the morning. [facility] aspirin 81 mg chewable tablet 04-16 00:00: 00 Yes [id number] 81mg Take 1 tablet by mouth in the morning. [facility] aspirin 81 mg chewable tablet 04-16 00:00: 00 Yes [id number] 81mg Take 1 tablet by mouth in the morning. [facility] aspirin 81 mg chewable tablet 04-16 00:00: 00 Yes [id number] 81mg Take 1 tablet by mouth in the morning. [facility] MULTIVITAMI N ORAL 04-15 17:39: 14 Yes 1{tbl} Take 1 Tab by mouth daily. [facility] omega-3 fatty acids-vitam in E (FISH OIL) 1,000 mg capsule 04-15 17:39: 14 Yes 1g Take 1 g by mouth daily. [facility] loratadine (CLARITIN LIQUI-GEL) 10 mg capsule 04-15 17:39: 14 Yes Take by mouth daily. [facility] ondansetron (ZOFRAN) 4 mg tablet 04-15 17:39: 14 Yes 4mg Take 4 mg by mouth every 8 (eight) hours as needed. [facility] pantoprazol e (PROTONIX) 40 mg EC tablet 04-15 17:39: 14 Yes 40mg Take 40 mg by mouth daily. [facility] lisinopril- hydrochloro thiazide 20-12.5 mg per tablet 04-15 15:58: 35 04-15 00:00 :00 No 1{tbl} Take 1 tablet by mouth daily. [facility] levetiracet am (KEPPRA ORAL) 04-15 15:58: 35 04-15 00:00 :00 No Take by mouth. [facility] acetaminoph en-codeine (TYLENOL #4) 300-60 mg tablet 1 tablet 04-15 05:39: 23 04-15 14:39 :42 No 1{tbl} 1 tablet, Oral, Q6HPRN, Starting on Thu04/15/22 at 0039, Until Thu04/15/22 at 0939, Routine, Pain (scale 4-6), Pain (scale 1-3) [facility] LORazepam (ATIVAN) tablet 2 mg 04-15 03:30: 00 04-15 10:27 :00 No 2mg 2 mg, Oral, ONCE, 1 dose, On Thu04/14/22 at 2230, Routine [facility] levETIRAcet am (KEPPRA) tablet 1,000 mg 04-15 02:45: 00 Yes 1000mg 1,000 mg, Oral, BID, First dose (after last modificati on) on Thu04/14/22 at 2145, Until Discontinu ed, Routine [facility] ketorolac (TORADOL) injection 15 mg 04-15 02:13: 00 04-15 02:22 :00 No 15mg 15 mg, Slow IV Push, ONCE, 1 dose, On Thu04/14/22 at 2115, Routine [facility] levETIRAcet am 1,000 mg tablet 04-15 00:00: 00 Yes [id number] 1000mg Take 1 tablet by mouth in the morning and 1 tablet in the evening. [facility] atorvastati n 40 mg tablet 04-15 00:00: 00 Yes [id number] 40mg Take 1 tablet by mouth at bedtime. [facility] atorvastati n 40 mg tablet 04-15 00:00: 00 Yes [id number] 40mg Take 1 tablet by mouth at bedtime. [facility] atorvastati n 40 mg tablet 04-15 00:00: 00 Yes [id number] 40mg Take 1 tablet by mouth at bedtime. [facility] atorvastati n 40 mg tablet 04-15 00:00: 00 Yes [id number] 40mg Take 1 tablet by mouth at bedtime. [facility] atorvastati n 40 mg tablet 04-15 00:00: 00 Yes [id number] 40mg Take 1 tablet by mouth at bedtime. [facility] atorvastati n 40 mg tablet 04-15 00:00: 00 Yes [id number] 40mg Take 1 tablet by mouth at bedtime. [facility] atorvastati n 40 mg tablet 04-15 00:00: 00 Yes [id number] 40mg Take 1 tablet by mouth at bedtime. [facility] atorvastati n 40 mg tablet 04-15 00:00: 00 Yes [id number] 40mg Take 1 tablet by mouth at bedtime. [facility] levETIRAcet am 1,000 mg tablet 04-15 00:00: 00 05-08 00:00 :00 No [id number] 1000mg Take 1 tablet by mouth in the morning and 1 tablet in the evening. [facility] lidocaine 5 % (700 mg/patch) patch 04-15 00:00: 00 04-23 04:59 :00 No [id number] 1{patch } Apply 1 Patch to area(s) in the morning for 7 days. [facility] HYDROcodone -acetaminop hen 5-325 mg tablet 04-15 00:00: 00 04-21 04:59 :00 No [id number] 1{tbl} Take 1 tablet by mouth every 6 (six) hours as needed for Pain (scale 7-10) for up to 5 days. Indication s: acute pain [facility] lidocaine (LIDODERM) 5 % (700 mg/patch) patch 1 Patch 04-14 21:45: 29 Yes 1{patch } 1 Patch, Topical, Administer over 12 Hours, [id number], Starting on Thu04/14/22 at 1645, Until Discontinu ed, Routine, Localized pain [facility] aspirin chewable tablet 81 mg 04-14 21:30: 00 Yes 81mg 81 mg, Oral, DAILY, First dose on Thu04/14/22 at 1630, Until Discontinu ed, Routine [facility] acetaminoph en (TYLENOL) tablet 650 mg 04-14 21:29: 25 Yes 650mg 650 mg, Oral, Q6HPRN, Starting on Thu04/14/22 at 1629, Until Discontinu ed, Routine, Pain (scale 1-3), Temp > 38.5 C, Temp > 37.5 C [facility] HYDROcodone -acetaminop hen (NORCO) 10-325 mg tablet 1 tablet 04-14 21:29: 02 04-15 05:39 :41 No 1{tbl} 1 tablet, Oral, Q6HPRN, Starting on Thu04/14/22 at 1629, Until Thu04/15/22 at 0039, Routine, Pain (scale 7-10), Pain (scale 4-6) [facility] sulfur hexafluorid e microsphr (LUMASON) injection 5 mL 04-14 16:45: 00 04-14 16:45 :00 No [id number] 5mL 5 mL, Intravenou s, ONCE, 1 dose, On Thu04/14/22 at 1145, Routine
community board member approving Restricted medication : [employer] [facility] clopidogreL (PLAVIX) 75 mg tablet 75 mg 04-14 14:00: 00 Yes 75mg 75 mg, Oral, DAILY, First dose on Thu04/14/22 at 0900, Until Discontinu ed, Routine [facility] pantoprazol e (PROTONIX) EC tablet 40 mg 04-14 14:00: 00 Yes 40mg 40 mg, Oral, DAILY, First dose on Thu04/14/22 at 0900, Until Discontinu ed, Routine [facility] atorvastati n (LIPITOR) tablet 40 mg 04-14 02:00: 00 Yes 40mg 40 mg, Oral, QHS, First dose on Thu04/13/22 at 2100, Until Discontinu ed, [facility]ine [facility] LORazepam (ATIVAN) tablet 1 mg 04-14 01:30: 00 04-14 01:45 :00 No 1mg 1 mg, Oral, ONCE, 1 dose, On Thu04/13/22 at 2030, Routine [facility] methocarbam oL (ROBAXIN) tablet 500 mg 04-14 01:00: 00 Yes 500mg 500 mg, Oral, QID, First dose on Thu04/13/22 at 2000, Until Discontinu ed, Routine [facility] heparin (porcine) injection 5,000 Units 04-14 01:00: 00 Yes 5000U 5,000 Units, Subcutaneo us, Q12H, First dose on Thu04/13/22 at 2000, Until Discontinu ed, Routine [facility] acetaminoph en (TYLENOL) tablet 650 mg 04-14 00:23: 25 04-14 21:29 :42 No 650mg 650 mg, Oral, Q6HPRN, Starting on Thu04/13/22 at 1923, Until Thu04/14/22 at 1629, Routine, Pain (scale 1-3), Pain (scale 4-6), Temp > 38.5 C, Temp > 37.5 C [facility] lidocaine (LIDODERM) 5 % (700 mg/patch) patch 1 Patch 04-14 00:22: 00 04-14 13:51 :00 No 1{patch } 1 Patch, Topical, Administer over 12 Hours, ONCE, 1 dose, On Thu04/13/22 at 1930, Routine [facility] FENTanyl PF (SUBLIMAZE (PF)) injection 50 mcg 04-13 20:30: 00 04-13 19:22 :00 No 50ug 50 mcg, Slow IV Push, ONCE, 1 dose, On Thu04/13/22 at 1530, Routine [facility] aspirin chewable tablet 650 mg 04-13 20:15: 00 04-13 20:15 :00 No 650mg 650 mg, Oral, ONCE, 1 dose, On 04/13/22 at 1515, Routine [facility] clopidogreL (PLAVIX) 300 mg tablet 300 mg 04-13 20:00: 00 04-13 19:15 :00 No 300mg 300 mg, Oral, ONCE, 1 dose, On Thu04/13/22 at 1500, Routine [facility] ondansetron (ZOFRAN (PF)) injection 4 mg 04-13 19:30: 00 04-13 19:22 :00 No 4mg 4 mg, Slow IV Push, ONCE, 1 dose, On Thu04/13/22 at 1430, MICHAEL [facility] iopamidol (ISOVUE 370-500 mL) injection 100 mL 04-13 18:31: 00 04-13 18:32 :00 No [id number] 100mL 100 mL, Intravenou s, ONCE, 1 dose, On Thu04/13/22 at 1345, Routine [facility] NaCl 0.9% (NS) injection 5 mL 04-13 18:14: 11 Yes 5mL 5 mL, Slow IV Push, PRN - SEE INSTRUCTIO NS, Starting on Thu04/13/22 at 1314, Until Discontinu ed, 10 mL [facility] aspirin chewable tablet 324 mg 08 14:00: 00 Yes 324mg 324 mg, Oral, DAILY, First dose on 11/24/21 at 0900, Until Discontinu ed, Routine [facility] metoclopram iker HCl (REGLAN) injection 10 mg 11-23 22:30: 00 11-23 21:24 :00 No 10mg 10 mg, Slow IV Push, ONCE, 1 dose, On 11/23/21 at 1730, [facility] acetaminoph en (TYLENOL) tablet 1,000 mg 11-23 22:15: 00 11-23 21:09 :00 No 1000mg 1,000 mg, Oral, ONCE, 1 dose, On 11/23/21 at 1715, [facility] ondansetron (ZOFRAN (PF)) injection 4 mg 11-23 21:45: 00 11-23 20:30 :00 No 4mg 4 mg, Slow IV Push, ONCE, 1 dose, On 11/23/21 at 1645, [facility] NaCl 0.9% (NS) bolus infusion 1,000 mL 11-23 21:30: 00 11-23 21:56 :00 No 1000mL at 999 mL/hr, 1,000 mL, IV Infusion, ONCE, 1 dose, On 11/23/21 at 1630, [facility] LORazepam (ATIVAN) injection 4 mg 11-23 21:30: 00 11-23 20:23 :00 No 4mg 4 mg, Slow IV Push, ONCE, 1 dose, On 11/23/21 at 1630, STAT [facility] levETIRAcet am (KEPPRA) in NACL (ISO-OS) 1,500 mg/100 mL RTU 11-23 21:30: 00 11-23 20:47 :00 No 1500mg 1,500 mg, IV Piggyback, ONCE, 1 dose, On 11/23/21 at 1630, Administer over 15 Minutes, 100 mL [facility] Dose Unknown 4-08 00:00: 00 No Dose Unknown 4-08 00:00: 00 No Prozac 20 mg capsule 3-21 00:00: 00 No 1mg Prozac 20 mg capsule 2022-0 3-21 00:00: 00 No 1mg Dose Unknown [...] Dose Unknown 2022-0 3-06 00:00: 00 No Wellbutrin XL 150 mg 24 hr tablet, extended release 2020-1 2- 00:00: 00 No 1mg Dose Unknown 2020-1 2 00:00: 00 No Wellbutrin XL 150 mg 24 hr tablet, extended release 2020-1 2 00:00: 00 No 1mg Dose Unknown 2020-1 2 00:00: 00 No ibuprofen 800 mg tablet 2020-1 2- 00:00: 00 No 1mg ibuprofen 800 mg tablet 2020-1 2- 00:00: 00 No 1mg levetiracet am 500 [...] y
Durat ion of Therapy: 7 days [facility] levoFLOXaci n (LEVAQUIN) tablet 500 mg 03-17 04:00: 00 03-17 04:22 :00 No 500mg 500 mg, Oral, ONCE, 1 dose, 03/16/21 at 2315, MICHAEL
Re ason for Anti-Infec tive: Documented Infection< br>Documen sherice Infection Site: Respirator y
Durat ion of Therapy: 7 days [facility] morpHINE injection 4 mg 03-17 01:58: 00 03-17 02:13 :00 No 4mg 4 mg, Slow IV Push, ONCE, 1 dose, 03/16/21 at 2100, STAT [facility] ondansetron (ZOFRAN (PF)) injection 4 mg 03-17 01:58: 00 03-17 02:12 :00 No 4mg 4 mg, Slow IV Push, ONCE, 1 dose, 03/16/21 at 2100, MICHAEL [facility] morpHINE injection 4 mg 03-17 01:58: 00 03-17 02:13 :00 No 4mg 4 mg, Slow IV Push, ONCE, 1 dose, 03/16/21 at 2100, STAT [facility] ondansetron (ZOFRAN (PF)) injection 4 mg 03-17 01:58: 00 03-17 02:12 :00 No 4mg 4 mg, Slow IV Push, ONCE, 1 dose, 03/16/21 at 2100, [facility] ipratropium -albuteroL (DUONEB) 0.5 mg-3 mg(2.5 mg base)/3 mL nebulizer solution 3 mL 03-17 01:57: 00 03-17 02:15 :00 No 3mL 3 mL, Inhalation , ONCE, 1 dose, 03/16/21 at 2100, [facility] NaCl 0.9% (NS) IV infusion 1,000 mL 03-17 01:57: 00 03-17 03:07 :00 No 1000mL at 999 mL/hr, Intravenou s, ONCE, 1 dose, 03/16/21 at 2100, [facility] methylpredn isolone sod succ (SOLU-MEDRO L) injection 125 mg 03-17 01:57: 00 03-17 02:11 :00 No 125mg 125 mg, Slow IV Push, ONCE, 1 dose, 03/16/21 at 2100, [facility] ipratropium -albuteroL (DUONEB) 0.5 mg-3 mg(2.5 mg base)/3 mL nebulizer solution 3 mL 03-17 01:57: 00 03-17 02:15 :00 No 3mL 3 mL, Inhalation , ONCE, 1 dose, 03/16/21 at 2100, [facility] ipratropium -albuteroL (DUONEB) 0.5 mg-3 mg(2.5 mg base)/3 mL nebulizer solution 3 mL 03-17 01:57: 00 03-17 02:15 :00 No 3mL 3 mL, Inhalation , ONCE, 1 dose, 03/16/21 at 2100, [facility] NaCl 0.9% (NS) IV infusion 1,000 mL 03-17 01:57: 00 03-17 03:07 :00 No 1000mL at 999 mL/hr, Intravenou s, ONCE, 1 dose, 03/16/21 at 2100, MICHAEL [facility] methylpredn isolone sod succ (SOLU-MEDRO L) injection 125 mg 03-17 01:57: 00 03-17 02:11 :00 No 125mg 125 mg, Slow IV Push, ONCE, 1 dose, 03/16/21 at 2100, STAT [facility] ipratropium -albuteroL (DUONEB) 0.5 mg-3 mg(2.5 mg base)/3 mL nebulizer solution 3 mL 03-17 01:57: 00 03-17 02:15 :00 No 3mL 3 mL, Inhalation , ONCE, 1 dose, 03/16/21 at 2100, MICHAEL [facility] levoFLOXaci n 500 mg tablet 03-17 00:00: 00 03-24 04:59 :00 No [id number] 500mg Take 1 tablet by mouth daily for 6 days. [facility] levoFLOXaci n 500 mg tablet 03-17 00:00: 00 03-24 04:59 :00 No [id number] 500mg Take 1 tablet by mouth daily for 6 days. [facility] levoFLOXaci n 500 mg tablet 03-17 00:00: 00 03-24 04:59 :00 No [id number] 500mg Take 1 tablet by mouth daily for 6 days. [facility] levoFLOXaci n 500 mg tablet 03-17 00:00: 00 03-24 04:59 :00 No [id number] 500mg Take 1 tablet by mouth daily for 6 days. [facility] predniSONE 10 mg tablet 03-17 00:00: 00 03-22 04:59 :00 No [id number] 30mg Take 3 tablets by mouth daily for 4 days. [facility] predniSONE 10 mg tablet 03-17 00:00: 00 03-22 04:59 :00 No [id number] 30mg Take 3 tablets by mouth daily for 4 days. [facility] predniSONE 10 mg tablet 03-17 00:00: 00 03-22 04:59 :00 No [id number] 30mg Take 3 tablets by mouth daily for 4 days. [facility] predniSONE 10 mg tablet 03-17 00:00: 00 03-22 04:59 :00 No [id number] 30mg Take 3 tablets by mouth daily for 4 days. [facility] albuterol (VENTOLIN) inhaler 4 Puff 03-15 01:45: 00 03-15 00:44 :00 No [id number] 4{puff} 4 Puff, Inhalation , ONCE, 1 dose, Arpita 03/14/21 at 2044, Routine [facility] dexamethaso ne (DECADRON) injection 10 mg 03-15 01:45: 00 03-15 00:45 :00 No [id number] 10mg 10 mg, Intramuscu lar, ONCE, 1 dose, Arpita 03/14/21 at 2044, Routine [facility] albuterol 2.5 mg /3 mL (0.083 %) nebulizer solution 03-15 00:00: 00 Yes [id number] 2.5mg Inhale 3 mL every 4 (four) hours as needed for Wheezing or Shortness of Breath. [facility] albuterol 2.5 mg /3 mL (0.083 %) nebulizer solution 03-15 00:00: 00 Yes [id number] 2.5mg Inhale 3 mL every 4 (four) hours as needed for Wheezing or Shortness of Breath. [facility] albuterol 2.5 mg /3 mL (0.083 %) nebulizer solution 03-15 00:00: 00 Yes [id number] 2.5mg Inhale 3 mL every 4 (four) hours as needed for Wheezing or Shortness of Breath. [facility] albuterol 2.5 mg /3 mL (0.083 %) nebulizer solution 03-15 00:00: 00 Yes [id number] 2.5mg Inhale 3 mL every 4 (four) hours as needed for Wheezing or Shortness of Breath. [facility] albuterol 2.5 mg /3 mL (0.083 %) nebulizer solution 03-15 00:00: 00 Yes [id number] 2.5mg Inhale 3 mL every 4 (four) hours as needed for Wheezing or Shortness of Breath. [facility] albuterol 2.5 mg /3 mL (0.083 %) nebulizer solution 03-15 00:00: 00 Yes [id number] 2.5mg Inhale 3 mL every 4 (four) hours as needed for Wheezing or Shortness of Breath. [facility] albuterol 2.5 mg /3 mL (0.083 %) nebulizer solution 03-15 00:00: 00 Yes [id number] 2.5mg Inhale 3 mL every 4 (four) hours as needed for Wheezing or Shortness of Breath. [facility] albuterol 2.5 mg /3 mL (0.083 %) nebulizer solution 03-15 00:00: 00 Yes [id number] 2.5mg Inhale 3 mL every 4 (four) hours as needed for Wheezing or Shortness of Breath. [facility] albuterol 2.5 mg /3 mL (0.083 %) nebulizer solution 03-15 00:00: 00 Yes [id number] 2.5mg Inhale 3 mL every 4 (four) hours as needed for Wheezing or Shortness of Breath. [facility] albuterol 2.5 mg /3 mL (0.083 %) nebulizer solution 03-15 00:00: 00 Yes [id number] 2.5mg Inhale 3 mL every 4 (four) hours as needed for Wheezing or Shortness of Breath. [facility] albuterol 2.5 mg /3 mL (0.083 %) nebulizer solution 03-15 00:00: 00 Yes [id number] 2.5mg Inhale 3 mL every 4 (four) hours as needed for Wheezing or Shortness of Breath. [facility] albuterol 2.5 mg /3 mL (0.083 %) nebulizer solution 03-15 00:00: 00 Yes [id number] 2.5mg Inhale 3 mL every 4 (four) hours as needed for Wheezing or Shortness of Breath. [facility] albuterol 2.5 mg /3 mL (0.083 %) nebulizer solution 03-15 00:00: 00 Yes [id number] 2.5mg Inhale 3 mL every 4 (four) hours as needed for Wheezing or Shortness of Breath. [facility] albuterol 2.5 mg /3 mL (0.083 %) nebulizer solution 03-15 00:00: 00 Yes [id number] 2.5mg Inhale 3 mL every 4 (four) hours as needed for Wheezing or Shortness of Breath. [facility] albuterol 2.5 mg /3 mL (0.083 %) nebulizer solution 03-15 00:00: 00 Yes [id number] 2.5mg Inhale 3 mL every 4 (four) hours as needed for Wheezing or Shortness of Breath. [facility] albuterol 2.5 mg /3 mL (0.083 %) nebulizer solution 03-15 00:00: 00 Yes [id number] 2.5mg Inhale 3 mL every 4 (four) hours as needed for Wheezing or Shortness of Breath. [facility] albuterol 2.5 mg /3 mL (0.083 %) nebulizer solution 03-15 00:00: 00 Yes [id number] 2.5mg Inhale 3 mL every 4 (four) hours as needed for Wheezing or Shortness of Breath. [facility] albuterol 2.5 mg /3 mL (0.083 %) nebulizer solution 03-15 00:00: 00 Yes [id number] 2.5mg Inhale 3 mL every 4 (four) hours as needed for Wheezing or Shortness of Breath. [facility] levETIRAcet am (KEPPRA) in NACL (ISO-OS) 1,000 mg/100 mL RTU 02-19 20:15: 00 02-19 19:30 :00 No 1000mg 1,000 mg, IV Infusion, ONCE, 1 dose, 02/19/21 at 1515, Administer over 15 Minutes, 100 mL [facility] levetiracet am (KEPPRA ORAL) 02-19 19:45: 33 Yes Take by mouth. [facility] levetiracet am (KEPPRA ORAL) 02-19 19:45: 33 Yes Take by mouth. [facility] levetiracet am (KEPPRA ORAL) 02-19 19:45: 33 Yes Take by mouth. [facility] levetiracet am (KEPPRA ORAL) 02-19 19:45: 33 Yes Take by mouth. [facility] levetiracet am (KEPPRA ORAL) 02-19 19:45: 33 Yes Take by mouth. [facility] levetiracet am (KEPPRA ORAL) 02-19 19:45: 33 Yes Take by mouth. [facility] LISINOPRIL- HYDROCHLORO THIAZIDE ORAL 02-19 19:41: 15 02-19 00:00 :00 No Take by mouth. [facility] dicyclomine (BENTYL) injection 20 mg 02-19 19:15: 00 02-19 19:04 :00 No 20mg 20 mg, Intramuscu lar, ONCE, 1 dose, 02/19/21 at 1415, Routine [facility] proMETHazin e (PHENERGAN) 25 mg in NaCl 0.9% (NS) 50 mL piggyback 02-19 19:15: 00 02-19 19:03 :00 No 25mg 25 mg, IV Piggyback, ONCE, 1 dose, 02/19/21 at 1415, 50 mL [facility] morpHINE injection 4 mg 02-19 17:15: 00 02-19 17:05 :00 No 4mg 4 mg, Slow IV Push, ONCE, 1 dose, 02/19/21 at 1215, STAT [facility] NaCl 0.9% (NS) bolus infusion 1,000 mL 02-19 17:15: 00 02-19 19:04 :00 No 1000mL at 999 mL/hr, 1,000 mL, IV Infusion, ONCE, 1 dose, 02/19/21 at 1215, STAT [facility] ondansetron (ZOFRAN (PF)) injection 4 mg 02-19 17:00: 00 02-19 15:59 :00 No 4mg 4 mg, Slow IV Push, ONCE, 1 dose, 02/19/21 at 1200, MICHAEL [facility] iopamidol (ISOVUE 370-500 mL) injection 100 mL 02-19 16:35: 00 02-19 16:45 :00 No [id number] 100mL 100 mL, Intravenou s, ONCE, 1 dose, 02/19/21 at 1145, Routine [facility] levetiracet am (KEPPRA ORAL) 02-19 14:45: 33 Yes Take by mouth. [facility] levetiracet am (KEPPRA ORAL) 02-19 14:45: 33 Yes Take by mouth. [facility] levetiracet am (KEPPRA ORAL) 02-19 14:45: 33 Yes Take by mouth. [facility] levetiracet am (KEPPRA ORAL) 02-19 14:45: 33 Yes Take by mouth. [facility] levetiracet am (KEPPRA ORAL) 02-19 14:45: 33 Yes Take by mouth. [facility] proMETHazin e 25 mg tablet 02-19 00:00: 00 Yes [id number] 25mg Take 1 tablet by mouth every 6 (six) hours as needed for Nausea and Vomiting (N/V). [facility] dicyclomine 20 mg tablet 2020-0 8-03 00:00: 00 Yes [id number] 20mg Take 1 tablet by mouth 4 (four) times daily as needed for Abdominal pain. [facility] proMETHazin e 25 mg tablet 0 8- 00:00: 00 Yes [id number] 25mg Take 1 tablet by mouth every 6 (six) hours as needed for Nausea and Vomiting (N/V). [facility] dicyclomine 20 mg tablet 0 02-19 00:00: 00 Yes [id number] 20mg Take 1 tablet by mouth 4 (four) times daily as needed for Abdominal pain. [facility] proMETHazin e 25 mg tablet 0 - 00:00: 00 Yes [id number] 25mg Take 1 tablet by mouth every 6 (six) hours as needed for Nausea and Vomiting (N/V). [facility] dicyclomine 20 mg tablet 0 02-19 00:00: 00 Yes [id number] 20mg Take 1 tablet by mouth 4 (four) times daily as needed for Abdominal pain. [facility] proMETHazin e 25 mg tablet 0 02-19 00:00: 00 Yes [id number] 25mg Take 1 tablet by mouth every 6 (six) hours as needed for Nausea and Vomiting (N/V). [facility] dicyclomine 20 mg tablet 2020-0 8- 00:00: 00 Yes [id number] 20mg Take 1 tablet by mouth 4 (four) times daily as needed for Abdominal pain. [facility] proMETHazin e 25 mg tablet 2020-0 8-03 00:00: 00 Yes [id number] 25mg Take 1 tablet by mouth every 6 (six) hours as needed for Nausea and Vomiting (N/V). [facility] dicyclomine 20 mg tablet 2020-0 8-03 00:00: 00 Yes [id number] 20mg Take 1 tablet by mouth 4 (four) times daily as needed for Abdominal pain. [facility] proMETHazin e 25 mg tablet 0 02-19 00:00: 00 Yes [id number] 25mg Take 1 tablet by mouth every 6 (six) hours as needed for Nausea and Vomiting (N/V). [facility] dicyclomine 20 mg tablet 0 02-19 00:00: 00 Yes [id number] 20mg Take 1 tablet by mouth 4 (four) times daily as needed for Abdominal pain. [facility] proMETHazin e 25 mg tablet 02-19 00:00: 00 Yes [id number] 25mg Take 1 tablet by mouth every 6 (six) hours as needed for Nausea and Vomiting (N/V). [facility] dicyclomine 20 mg tablet 02-19 00:00: 00 Yes [id number] 20mg Take 1 tablet by mouth 4 (four) times daily as needed for Abdominal pain. [facility] proMETHazin e 25 mg tablet 02-19 00:00: 00 Yes [id number] 25mg Take 1 tablet by mouth every 6 (six) hours as needed for Nausea and Vomiting (N/V). [facility] dicyclomine 20 mg tablet 02-19 00:00: 00 Yes [id number] 20mg Take 1 tablet by mouth 4 (four) times daily as needed for Abdominal pain. [facility] proMETHazin e 25 mg tablet 0 02-19 00:00: 00 Yes [id number] 25mg Take 1 tablet by mouth every 6 (six) hours as needed for Nausea and Vomiting (N/V). [facility] dicyclomine 20 mg tablet 0 02-19 00:00: 00 Yes [id number] 20mg Take 1 tablet by mouth 4 (four) times daily as needed for Abdominal pain. [facility] proMETHazin e 25 mg tablet 0 02-19 00:00: 00 Yes [id number] 25mg Take 1 tablet by mouth every 6 (six) hours as needed for Nausea and Vomiting (N/V). [facility] dicyclomine 20 mg tablet 02-19 00:00: 00 Yes [id number] 20mg Take 1 tablet by mouth 4 (four) times daily as needed for Abdominal pain. [facility] proMETHazin e 25 mg tablet 02-19 00:00: 00 Yes [id number] 25mg Take 1 tablet by mouth every 6 (six) hours as needed for Nausea and Vomiting (N/V). [facility] dicyclomine 20 mg tablet 0 02-19 00:00: 00 Yes [id number] 20mg Take 1 tablet by mouth 4 (four) times daily as needed for Abdominal pain. [facility] proMETHazin e 25 mg tablet 02-19 00:00: 00 Yes [id number] 25mg Take 1 tablet by mouth every 6 (six) hours as needed for Nausea and Vomiting (N/V). [facility] dicyclomine 20 mg tablet 02-19 00:00: 00 Yes [id number] 20mg Take 1 tablet by mouth 4 (four) times daily as needed for Abdominal pain. [facility] proMETHazin e 25 mg tablet 02-19 00:00: 00 Yes [id number] 25mg Take 1 tablet by mouth every 6 (six) hours as needed for Nausea and Vomiting (N/V). [facility] dicyclomine 20 mg tablet 02-19 00:00: 00 Yes [id number] 20mg Take 1 tablet by mouth 4 (four) times daily as needed for Abdominal pain. [facility] proMETHazin e 25 mg tablet 0 02-19 00:00: 00 Yes [id number] 25mg Take 1 tablet by mouth every 6 (six) hours as needed for Nausea and Vomiting (N/V). [facility] dicyclomine 20 mg tablet 0 02-19 00:00: 00 Yes [id number] 20mg Take 1 tablet by mouth 4 (four) times daily as needed for Abdominal pain. [facility] proMETHazin e 25 mg tablet 2020-0 02-19 00:00: 00 Yes [id number] 25mg Take 1 tablet by mouth every 6 (six) hours as needed for Nausea and Vomiting (N/V). [facility] dicyclomine 20 mg tablet 0 8- 00:00: 00 Yes [id number] 20mg Take 1 tablet by mouth 4 (four) times daily as needed for Abdominal pain. [facility] proMETHazin e 25 mg tablet 8 00:00: 00 Yes [id number] 25mg Take 1 tablet by mouth every 6 (six) hours as needed for Nausea and Vomiting (N/V). [facility] dicyclomine 20 mg tablet 02-19 00:00: 00 Yes [id number] 20mg Take 1 tablet by mouth 4 (four) times daily as needed for Abdominal pain. [facility] proMETHazin e 25 mg tablet 02-19 00:00: 00 Yes [id number] 25mg Take 1 tablet by mouth every 6 (six) hours as needed for Nausea and Vomiting (N/V). [facility] dicyclomine 20 mg tablet 02-19 00:00: 00 Yes [id number] 20mg Take 1 tablet by mouth 4 (four) times daily as needed for Abdominal pain. [facility] proMETHazin e 25 mg tablet 02-19 00:00: 00 Yes [id number] 25mg Take 1 tablet by mouth every 6 (six) hours as needed for Nausea and Vomiting (N/V). [facility] dicyclomine 20 mg tablet 0 02-19 00:00: 00 Yes [id number] 20mg Take 1 tablet by mouth 4 (four) times daily as needed for Abdominal pain. [facility] proMETHazin e 25 mg tablet 0 02-19 00:00: 00 Yes [id number] 25mg Take 1 tablet by mouth every 6 (six) hours as needed for Nausea and Vomiting (N/V). [facility] dicyclomine 20 mg tablet 02-19 00:00: 00 Yes [id number] 20mg Take 1 tablet by mouth 4 (four) times daily as needed for Abdominal pain. [facility] ZONISAMIDE 100 mg capsule 11-15 00:00: 00 Yes TAKE 1 CAPSULE BY MOUTH TWICE A DAY [facility] ZONISAMIDE 100 mg capsule 11-15 00:00: 00 02-19 00:00 :00 No TAKE 1 CAPSULE BY MOUTH TWICE A DAY [facility] ondansetron (ZOFRAN) 4 mg tablet 02-09 20:05: 01 Yes 4mg Take 4 mg by mouth every 8 (eight) hours as needed. [facility] pantoprazol e (PROTONIX) 40 mg EC tablet 02-09 20:05: 01 Yes 40mg Take 40 mg by mouth daily. [facility] ondansetron (ZOFRAN) 4 mg tablet 02-09 20:05: 01 Yes 4mg Take 4 mg by mouth every 8 (eight) hours as needed. [facility] pantoprazol e (PROTONIX) 40 mg EC tablet 02-09 20:05: 01 Yes 40mg Take 40 mg by mouth daily. [facility] LISINOPRIL- HYDROCHLORO THIAZIDE ORAL 02-09 20:05: 01 Yes Take by mouth. [facility] ondansetron (ZOFRAN) 4 mg tablet 02-09 20:05: 01 Yes 4mg Take 4 mg by mouth every 8 (eight) hours as needed. [facility] pantoprazol e (PROTONIX) 40 mg EC tablet 02-09 20:05: 01 Yes 40mg Take 40 mg by mouth daily. [facility] ondansetron (ZOFRAN) 4 mg tablet 02-09 20:05: 01 Yes 4mg Take 4 mg by mouth every 8 (eight) hours as needed. [facility] pantoprazol e (PROTONIX) 40 mg EC tablet 02-09 20:05: 01 Yes 40mg Take 40 mg by mouth daily. [facility] ondansetron (ZOFRAN) 4 mg tablet 02-09 20:05: 01 Yes 4mg Take 4 mg by mouth every 8 (eight) hours as needed. [facility] pantoprazol e (PROTONIX) 40 mg EC tablet 02-09 20:05: 01 Yes 40mg Take 40 mg by mouth daily. [facility] ondansetron (ZOFRAN) 4 mg tablet 02-09 20:05: 01 Yes 4mg Take 4 mg by mouth every 8 (eight) hours as needed. [facility] pantoprazol e (PROTONIX) 40 mg EC tablet 02-09 20:05: 01 Yes 40mg Take 40 mg by mouth daily. [facility] ondansetron (ZOFRAN) 4 mg tablet 02-09 20:05: 01 Yes 4mg Take 4 mg by mouth every 8 (eight) hours as needed. [facility] pantoprazol e (PROTONIX) 40 mg EC tablet 02-09 20:05: 01 Yes 40mg Take 40 mg by mouth daily. [facility] lisinopril- hydrochloro thiazide 20-12.5 mg per tablet 02-09 20:03: 30 Yes 1{tbl} Take 1 tablet by mouth daily. [facility] lisinopril- hydrochloro thiazide 20-12.5 mg per tablet 02-09 20:03: 30 Yes 1{tbl} Take 1 tablet by mouth daily. [facility] lisinopril- hydrochloro thiazide 20-12.5 mg per tablet 02-09 20:03: 30 Yes 1{tbl} Take 1 tablet by mouth daily. [facility] lisinopril- hydrochloro thiazide 20-12.5 mg per tablet 02-09 20:03: 30 Yes 1{tbl} Take 1 tablet by mouth daily. [facility] lisinopril- hydrochloro thiazide 20-12.5 mg per tablet 02-09 20:03: 30 Yes 1{tbl} Take 1 tablet by mouth daily. [facility] lisinopril- hydrochloro thiazide 20-12.5 mg per tablet 02-09 20:03: 30 Yes 1{tbl} Take 1 tablet by mouth daily. [facility] lisinopril- hydrochloro thiazide 20-12.5 mg per tablet 02-09 20:03: 30 Yes 1{tbl} Take 1 tablet by mouth daily. [facility] omega-3 fatty acids-vitam in E (FISH OIL) 1,000 mg capsule 02-09 19:59: 52 Yes 1g Take 1 g by mouth daily. [facility] omega-3 fatty acids-vitam in E (FISH OIL) 1,000 mg capsule 02-09 19:59: 52 Yes 1g Take 1 g by mouth daily. [facility] omega-3 fatty acids-vitam in E (FISH OIL) 1,000 mg capsule 02-09 19:59: 52 Yes 1g Take 1 g by mouth daily. [facility] omega-3 fatty acids-vitam in E (FISH OIL) 1,000 mg capsule 02-09 19:59: 52 Yes 1g Take 1 g by mouth daily. [facility] omega-3 fatty acids-vitam in E (FISH OIL) 1,000 mg capsule 02-09 19:59: 52 Yes 1g Take 1 g by mouth daily. [facility] omega-3 fatty acids-vitam in E (FISH OIL) 1,000 mg capsule 02-09 19:59: 52 Yes 1g Take 1 g by mouth daily. [facility] omega-3 fatty acids-vitam in E (FISH OIL) 1,000 mg capsule 02-09 19:59: 52 Yes 1g Take 1 g by mouth daily. [facility] MULTIVITAMI N ORAL 02-09 19:58: 14 Yes 1{tbl} Take 1 Tab by mouth daily. [facility] loratadine (CLARITIN LIQUI-GEL) 10 mg capsule 02-09 19:58: 14 Yes Take by mouth daily. [facility] MULTIVITAMI N ORAL 02-09 19:58: 14 Yes 1{tbl} Take 1 Tab by mouth daily. [facility] loratadine (CLARITIN LIQUI-GEL) 10 mg capsule 02-09 19:58: 14 Yes Take by mouth daily. [facility] MULTIVITAMI N ORAL 02-09 19:58: 14 Yes 1{tbl} Take 1 Tab by mouth daily. [facility] loratadine (CLARITIN LIQUI-GEL) 10 mg capsule 02-09 19:58: 14 Yes Take by mouth daily. [facility] MULTIVITAMI N ORAL 02-09 19:58: 14 Yes 1{tbl} Take 1 Tab by mouth daily. [facility] loratadine (CLARITIN LIQUI-GEL) 10 mg capsule 02-09 19:58: 14 Yes Take by mouth daily. [facility] MULTIVITAMI N ORAL 02-09 19:58: 14 Yes 1{tbl} Take 1 Tab by mouth daily. [facility] loratadine (CLARITIN LIQUI-GEL) 10 mg capsule 02-09 19:58: 14 Yes Take by mouth daily. [facility] MULTIVITAMI N ORAL 02-09 19:58: 14 Yes 1{tbl} Take 1 Tab by mouth daily. [facility] loratadine (CLARITIN LIQUI-GEL) 10 mg capsule 02-09 19:58: 14 Yes Take by mouth daily. [facility] MULTIVITAMI N ORAL 02-09 19:58: 14 Yes 1{tbl} Take 1 Tab by mouth daily. [facility] loratadine (CLARITIN LIQUI-GEL) 10 mg capsule 02-09 19:58: 14 Yes Take by mouth daily. [facility] ondansetron (ZOFRAN) 4 mg tablet 02-09 15:05: 01 Yes 4mg Take 4 mg by mouth every 8 (eight) hours as needed. [facility] pantoprazol e (PROTONIX) 40 mg EC tablet 02-09 15:05: 01 Yes 40mg Take 40 mg by mouth daily. [facility] ondansetron (ZOFRAN) 4 mg tablet 02-09 15:05: 01 Yes 4mg Take 4 mg by mouth every 8 (eight) hours as needed. [facility] pantoprazol e (PROTONIX) 40 mg EC tablet 02-09 15:05: 01 Yes 40mg Take 40 mg by mouth daily. [facility] ondansetron (ZOFRAN) 4 mg tablet 02-09 15:05: 01 Yes 4mg Take 4 mg by mouth every 8 (eight) hours as needed. [facility] pantoprazol e (PROTONIX) 40 mg EC tablet 02-09 15:05: 01 Yes 40mg Take 40 mg by mouth daily. [facility] ondansetron (ZOFRAN) 4 mg tablet 02-09 15:05: 01 Yes 4mg Take 4 mg by mouth every 8 (eight) hours as needed. [facility] pantoprazol e (PROTONIX) 40 mg EC tablet 02-09 15:05: 01 Yes 40mg Take 40 mg by mouth daily. [facility] ondansetron (ZOFRAN) 4 mg tablet 02-09 15:05: 01 Yes 4mg Take 4 mg by mouth every 8 (eight) hours as needed. [facility] pantoprazol e (PROTONIX) 40 mg EC tablet 02-09 15:05: 01 Yes 40mg Take 40 mg by mouth daily. [facility] lisinopril- hydrochloro thiazide 20-12.5 mg per tablet 02-09 15:03: 30 Yes 1{tbl} Take 1 tablet by mouth daily. [facility] lisinopril- hydrochloro thiazide 20-12.5 mg per tablet 02-09 15:03: 30 Yes 1{tbl} Take 1 tablet by mouth daily. [facility] lisinopril- hydrochloro thiazide 20-12.5 mg per tablet 02-09 15:03: 30 Yes 1{tbl} Take 1 tablet by mouth daily. [facility] lisinopril- hydrochloro thiazide 20-12.5 mg per tablet 02-09 15:03: 30 Yes 1{tbl} Take 1 tablet by mouth daily. [facility] lisinopril- hydrochloro thiazide 20-12.5 mg per tablet 02-09 15:03: 30 Yes 1{tbl} Take 1 tablet by mouth daily. [facility] omega-3 fatty acids-vitam in E (FISH OIL) 1,000 mg capsule 02-09 14:59: 52 Yes 1g Take 1 g by mouth daily. [facility] omega-3 fatty acids-vitam in E (FISH OIL) 1,000 mg capsule 02-09 14:59: 52 Yes 1g Take 1 g by mouth daily. [facility] omega-3 fatty acids-vitam in E (FISH OIL) 1,000 mg capsule 02-09 14:59: 52 Yes 1g Take 1 g by mouth daily. [facility] omega-3 fatty acids-vitam in E (FISH OIL) 1,000 mg capsule 02-09 14:59: 52 Yes 1g Take 1 g by mouth daily. [facility] omega-3 fatty acids-vitam in E (FISH OIL) 1,000 mg capsule 02-09 14:59: 52 Yes 1g Take 1 g by mouth daily. [facility] MULTIVITAMI N ORAL 02-09 14:58: 14 Yes 1{tbl} Take 1 Tab by mouth daily. [facility] loratadine (CLARITIN LIQUI-GEL) 10 mg capsule 02-09 14:58: 14 Yes Take by mouth daily. [facility] MULTIVITAMI N ORAL 02-09 14:58: 14 Yes 1{tbl} Take 1 Tab by mouth daily. [facility] loratadine (CLARITIN LIQUI-GEL) 10 mg capsule 02-09 14:58: 14 Yes Take by mouth daily. [facility] MULTIVITAMI N ORAL 02-09 14:58: 14 Yes 1{tbl} Take 1 Tab by mouth daily. [facility] loratadine (CLARITIN LIQUI-GEL) 10 mg capsule 02-09 14:58: 14 Yes Take by mouth daily. [facility] MULTIVITAMI N ORAL 02-09 14:58: 14 Yes 1{tbl} Take 1 Tab by mouth daily. [facility] loratadine (CLARITIN LIQUI-GEL) 10 mg capsule 02-09 14:58: 14 Yes Take by mouth daily. [facility] MULTIVITAMI N ORAL 02-09 14:58: 14 Yes 1{tbl} Take 1 Tab by mouth daily. [facility] loratadine (CLARITIN LIQUI-GEL) 10 mg capsule 02-09 14:58: 14 Yes Take by mouth daily. [facility] proMETHazin e (PHENERGAN) 25 mg tablet 11-20 00:00: 00 Yes 25mg Take 1 tablet by mouth every 6 (six) hours as needed for Nausea and Vomiting (N/V). [facility] proMETHazin e (PHENERGAN) 25 mg tablet 11-20 00:00: 00 02-19 00:00 :00 No 25mg Take 1 tablet by mouth every 6 (six) hours as needed for Nausea and Vomiting (N/V). [facility] carvedilol (COREG) 6.25 mg tablet 09-19 00:00: 00 Yes 6.25mg Take 1 Tab by mouth 2 (two) times daily with meals. [facility] amLODIPine (NORVASC) 10 mg tablet 09-19 00:00: 00 Yes 10mg Take 1 Tab by mouth daily. [facility] lisinopril (PRINIVIL,Z ESTRIL) 40 mg tablet 09-19 00:00: 00 Yes 40mg Take 1 Tab by mouth daily. [facility] carvedilol (COREG) 6.25 mg tablet 09-19 00:00: 00 Yes 6.25mg Take 1 Tab by mouth 2 (two) times daily with meals. [facility] amLODIPine (NORVASC) 10 mg tablet 09-19 00:00: 00 Yes 10mg Take 1 Tab by mouth daily. [facility] lisinopril (PRINIVIL,Z ESTRIL) 40 mg tablet 09-19 00:00: 00 Yes 40mg Take 1 Tab by mouth daily. [facility] carvedilol (COREG) 6.25 mg tablet 09-19 00:00: 00 Yes 6.25mg Take 1 Tab by mouth 2 (two) times daily with meals. [facility] amLODIPine (NORVASC) 10 mg tablet 09-19 00:00: 00 Yes 10mg Take 1 Tab by mouth daily. [facility] lisinopril (PRINIVIL,Z ESTRIL) 40 mg tablet 09-19 00:00: 00 Yes 40mg Take 1 Tab by mouth daily. [facility] carvedilol (COREG) 6.25 mg tablet 09-19 00:00: 00 Yes 6.25mg Take 1 Tab by mouth 2 (two) times daily with meals. [facility] amLODIPine (NORVASC) 10 mg tablet 09-19 00:00: 00 Yes 10mg Take 1 Tab by mouth daily. [facility] lisinopril (PRINIVIL,Z ESTRIL) 40 mg tablet 09-19 00:00: 00 Yes 40mg Take 1 Tab by mouth daily. [facility] carvedilol (COREG) 6.25 mg tablet 09-19 00:00: 00 Yes 6.25mg Take 1 Tab by mouth 2 (two) times daily with meals. [facility] amLODIPine (NORVASC) 10 mg tablet 09-19 00:00: 00 Yes 10mg Take 1 Tab by mouth daily. [facility] lisinopril (PRINIVIL,Z ESTRIL) 40 mg tablet 09-19 00:00: 00 Yes 40mg Take 1 Tab by mouth daily. [facility] carvedilol (COREG) 6.25 mg tablet 09-19 00:00: 00 Yes 6.25mg Take 1 Tab by mouth 2 (two) times daily with meals. [facility] amLODIPine (NORVASC) 10 mg tablet 09-19 00:00: 00 Yes 10mg Take 1 Tab by mouth daily. [facility] lisinopril (PRINIVIL,Z ESTRIL) 40 mg tablet 09-19 00:00: 00 Yes 40mg Take 1 Tab by mouth daily. [facility] carvedilol (COREG) 6.25 mg tablet 09-19 00:00: 00 Yes 6.25mg Take 1 Tab by mouth 2 (two) times daily with meals. [facility] amLODIPine (NORVASC) 10 mg tablet 09-19 00:00: 00 Yes 10mg Take 1 Tab by mouth daily. [facility] lisinopril (PRINIVIL,Z ESTRIL) 40 mg tablet 09-19 00:00: 00 Yes 40mg Take 1 Tab by mouth daily. [facility] carvedilol (COREG) 6.25 mg tablet 09-19 00:00: 00 Yes 6.25mg Take 1 Tab by mouth 2 (two) times daily with meals. [facility] amLODIPine (NORVASC) 10 mg tablet 09-19 00:00: 00 Yes 10mg Take 1 Tab by mouth daily. [facility] lisinopril (PRINIVIL,Z ESTRIL) 40 mg tablet 09-19 00:00: 00 Yes 40mg Take 1 Tab by mouth daily. [facility] carvedilol (COREG) 6.25 mg tablet 09-19 00:00: 00 Yes 6.25mg Take 1 Tab by mouth 2 (two) times daily with meals. [facility] amLODIPine (NORVASC) 10 mg tablet 09-19 00:00: 00 Yes 10mg Take 1 Tab by mouth daily. [facility] lisinopril (PRINIVIL,Z ESTRIL) 40 mg tablet 09-19 00:00: 00 Yes 40mg Take 1 Tab by mouth daily. [facility] carvedilol (COREG) 6.25 mg tablet 09-19 00:00: 00 Yes 6.25mg Take 1 Tab by mouth 2 (two) times daily with meals. [facility] amLODIPine (NORVASC) 10 mg tablet 09-19 00:00: 00 Yes 10mg Take 1 Tab by mouth daily. [facility] lisinopril (PRINIVIL,Z ESTRIL) 40 mg tablet 09-19 00:00: 00 Yes 40mg Take 1 Tab by mouth daily. [facility] carvedilol (COREG) 6.25 mg tablet 09-19 00:00: 00 Yes 6.25mg Take 1 Tab by mouth 2 (two) times daily with meals. [facility] amLODIPine (NORVASC) 10 mg tablet 09-19 00:00: 00 Yes 10mg Take 1 Tab by mouth daily. [facility] lisinopril (PRINIVIL,Z ESTRIL) 40 mg tablet 09-19 00:00: 00 Yes 40mg Take 1 Tab by mouth daily. [facility] carvedilol (COREG) 6.25 mg tablet 09-19 00:00: 00 Yes 6.25mg Take 1 Tab by mouth 2 (two) times daily with meals. [facility] amLODIPine (NORVASC) 10 mg tablet 09-19 00:00: 00 Yes 10mg Take 1 Tab by mouth daily. [facility] lisinopril (PRINIVIL,Z ESTRIL) 40 mg tablet 09-19 00:00: 00 Yes 40mg Take 1 Tab by mouth daily. [facility] carvedilol (COREG) 6.25 mg tablet 09-19 00:00: 00 Yes 6.25mg Take 1 Tab by mouth 2 (two) times daily with meals. [facility] amLODIPine (NORVASC) 10 mg tablet 09-19 00:00: 00 Yes 10mg Take 1 Tab by mouth daily. [facility] lisinopril (PRINIVIL,Z ESTRIL) 40 mg tablet 09-19 00:00: 00 Yes 40mg Take 1 Tab by mouth daily. [facility] carvedilol (COREG) 6.25 mg tablet 09-19 00:00: 00 Yes 6.25mg Take 1 Tab by mouth 2 (two) times daily with meals. [facility] amLODIPine (NORVASC) 10 mg tablet 09-19 00:00: 00 Yes 10mg Take 1 Tab by mouth daily. [facility] lisinopril (PRINIVIL,Z ESTRIL) 40 mg tablet 09-19 00:00: 00 Yes 40mg Take 1 Tab by mouth daily. [facility] carvedilol (COREG) 6.25 mg tablet 09-19 00:00: 00 Yes 6.25mg Take 1 Tab by mouth 2 (two) times daily with meals. [facility] amLODIPine (NORVASC) 10 mg tablet 09-19 00:00: 00 Yes 10mg Take 1 Tab by mouth daily. [facility] lisinopril (PRINIVIL,Z ESTRIL) 40 mg tablet 09-19 00:00: 00 Yes 40mg Take 1 Tab by mouth daily. [facility] carvedilol (COREG) 6.25 mg tablet 09-19 00:00: 00 Yes 6.25mg Take 1 Tab by mouth 2 (two) times daily with meals. [facility] amLODIPine (NORVASC) 10 mg tablet 09-19 00:00: 00 Yes 10mg Take 1 Tab by mouth daily. [facility] lisinopril (PRINIVIL,Z ESTRIL) 40 mg tablet 09-19 00:00: 00 Yes 40mg Take 1 Tab by mouth daily. [facility] carvedilol (COREG) 6.25 mg tablet 09-19 00:00: 00 Yes 6.25mg Take 1 Tab by mouth 2 (two) times daily with meals. [facility] amLODIPine (NORVASC) 10 mg tablet 09-19 00:00: 00 Yes 10mg Take 1 Tab by mouth daily. [facility] lisinopril (PRINIVIL,Z ESTRIL) 40 mg tablet 09-19 00:00: 00 Yes 40mg Take 1 Tab by mouth daily. [facility] carvedilol (COREG) 6.25 mg tablet 09-19 00:00: 00 Yes 6.25mg Take 1 Tab by mouth 2 (two) times daily with meals. [facility] amLODIPine (NORVASC) 10 mg tablet 09-19 00:00: 00 Yes 10mg Take 1 Tab by mouth daily. [facility] lisinopril (PRINIVIL,Z ESTRIL) 40 mg tablet 09-19 00:00: 00 Yes 40mg Take 1 Tab by mouth daily. [facility] carvedilol (COREG) 6.25 mg tablet 09-19 00:00: 00 Yes 6.25mg Take 1 Tab by mouth 2 (two) times daily with meals. [facility] amLODIPine (NORVASC) 10 mg tablet 09-19 00:00: 00 Yes 10mg Take 1 Tab by mouth daily. [facility] lisinopril (PRINIVIL,Z ESTRIL) 40 mg tablet 09-19 00:00: 00 Yes 40mg Take 1 Tab by mouth daily. [facility] carvedilol (COREG) 6.25 mg tablet 09-19 00:00: 00 Yes 6.25mg Take 1 Tab by mouth 2 (two) times daily with meals. [facility] amLODIPine (NORVASC) 10 mg tablet 09-19 00:00: 00 Yes 10mg Take 1 Tab by mouth daily. [facility] lisinopril (PRINIVIL,Z ESTRIL) 40 mg tablet 09-19 00:00: 00 Yes 40mg Take 1 Tab by mouth daily. [facility] Vital Signs Vital Name Observation Time Observation Value Comments S martina WEIGHT 2023-06-16 05:26:00 86.047 kg HEIGHT 2023-06-13 [...] Systolic blood pressure 2022-12-11 20:00:00 142 mm[Hg] [facility] Diastolic blood pressure 2022-12-11 20:00:00 90 mm[Hg] [facility] Respiratory rate 2022-12-11 20:00:00 24 /min [facility] Heart rate 2022-12-11 18:00:00 101 /min [facility] Oxygen saturation in Arterial blood by Pulse oximetry 2022-12-11 18:00:00 93 /min [facility] BMI 2022-12-11 13:55:00 35.43 kg/m2 [facility] Body temperature 2022-12-11 13:55:00 37.22 Radha [facility] Body weight 2022-12-11 13:55:00 90.719 kg [facility] Systolic blood pressure 2022-11-18 05:34:00 152 mm[Hg] [facility] Diastolic blood pressure 2022-11-18 05:34:00 98 mm[Hg] [facility] Heart rate 2022-11-18 05:34:00 88 /min [facility] Respiratory rate 2022-11-18 05:34:00 18 /min [facility] Oxygen saturation in Arterial blood by Pulse oximetry 2022-11-18 05:34:00 97 /min [facility] Body temperature 2022-11-17 22:28:00 37.06 Radha [facility] Body height 2022-11-17 22:28:00 160 cm [facility] Body weight 2022-11-17 22:28:00 99.791 kg [facility] BMI 2022-11-17 22:28:00 38.97 kg/m2 [facility] Heart rate 2022-08-02 02:02:00 108 /min [facility] Respiratory rate 2022-08-02 02:02:00 28 /min [facility] Oxygen saturation in Arterial blood by Pulse oximetry 2022-08-02 02:02:00 97 /min [facility] Body temperature 2022-08-02 01:00:00 36.44 Radha [facility] Systolic blood pressure 2022-08-01 23:29:00 145 mm[Hg] [facility] Diastolic blood pressure 2022-08-01 23:29:00 103 mm[Hg] [facility] Body weight 2022-08-01 09:16:00 97.977 kg [facility] BMI 2022-08-01 09:16:00 38.26 kg/m2 [facility] Body height 2022-07-31 21:54:00 160 cm [facility] Systolic blood pressure 2022-05-08 16:40:00 146 mm[Hg] [facility] Diastolic blood pressure 2022-05-08 16:40:00 96 mm[Hg] [facility] Heart rate 2022-05-08 16:40:00 112 /min [facility] Body temperature 2022-05-08 16:40:00 36.78 Radha [facility] Respiratory rate 2022-05-08 16:40:00 18 /min [facility] Oxygen saturation in Arterial blood by Pulse oximetry 2022-05-08 16:40:00 94 /min [facility] Body height 2022-05-05 23:44:00 160 cm [facility] Body weight 2022-05-05 23:37:00 81.647 kg [facility] BMI 2022-05-05 23:37:00 31.89 kg/m2 [facility] Systolic blood pressure 2022-04-15 18:52:00 104 mm[Hg] [facility] Diastolic blood pressure 2022-04-15 18:52:00 82 mm[Hg] [facility] Heart rate 2022-04-15 18:52:00 114 /min [facility] Oxygen saturation in Arterial blood by Pulse oximetry 2022-04-15 18:52:00 98 /min [facility] Body temperature 2022-04-15 16:14:00 36.28 Radha [facility] Respiratory rate 2022-04-15 16:14:00 17 /min [facility] Body height 2022-04-13 21:08:00 160 cm [facility] Body weight 2022-04-13 21:08:00 91.173 kg [facility] BMI 2022-04-13 21:08:00 35.61 kg/m2 [facility] Systolic blood pressure 2021-11-23 21:30:00 132 mm[Hg] [facility] Diastolic blood pressure 2021-11-23 21:30:00 76 mm[Hg] [facility] Heart rate 2021-11-23 21:30:00 95 /min [facility] Respiratory rate 2021-11-23 21:30:00 13 /min [facility] Oxygen saturation in Arterial blood by Pulse oximetry 2021-11-23 21:30:00 97 /min [facility] Body temperature 2021-11-23 20:15:00 37.56 Radha [facility] Systolic blood pressure 2021-03-17 03:00:00 117 mm[Hg] [facility] Diastolic blood pressure 2021-03-17 03:00:00 76 mm[Hg] [facility] Heart rate 2021-03-17 03:00:00 104 /min [facility] Respiratory rate 2021-03-17 03:00:00 28 /min [facility] Oxygen saturation in Arterial blood by Pulse oximetry 2021-03-17 03:00:00 96 /min [facility] Body temperature 2021-03-17 00:39:00 37.11 Radha [facility] Body height 2021-03-17 00:39:00 160 cm [facility] Body weight 2021-03-17 00:39:00 58.968 kg [facility] BMI 2021-03-17 00:39:00 23.03 kg/m2 [facility] Systolic blood pressure 2021-03-15 00:14:00 149 mm[Hg] [facility] Diastolic blood pressure 2021-03-15 00:14:00 78 mm[Hg] [facility] Heart rate 2021-03-15 00:14:00 100 /min [facility] Body temperature 2021-03-15 00:14:00 37.33 Radha [facility] Respiratory rate 2021-03-15 00:14:00 24 /min [facility] Body height 2021-03-15 00:14:00 160 cm [facility] Body weight 2021-03-15 00:14:00 58.968 kg [facility] BMI 2021-03-15 00:14:00 23.03 kg/m2 [facility] Oxygen saturation in Arterial blood by Pulse oximetry 2021-03-15 00:14:00 98 /min [facility] Systolic blood pressure 2021-02-19 18:00:00 131 mm[Hg] [facility] Diastolic blood pressure 2021-02-19 18:00:00 80 mm[Hg] [facility] Heart rate 2021-02-19 18:00:00 83 /min [facility] Respiratory rate 2021-02-19 18:00:00 18 /min [facility] Oxygen saturation in Arterial blood by Pulse oximetry 2021-02-19 18:00:00 100 /min [facility] Body temperature 2021-02-19 15:47:00 37 Radha [facility] Body height 2021-02-19 15:47:00 160 cm [facility] Body weight 2021-02-19 15:47:00 58.968 kg [facility] BMI 2021-02-19 15:47:00 23.03 kg/m2 [facility] Heart rate 2023-06-16 17:00:00 108 /min [facility] Systolic blood pressure 2023-06-16 15:31:00 101 mm[Hg] [facility] Diastolic blood pressure 2023-06-16 15:31:00 81 mm[Hg] [facility] Body temperature 2023-06-16 15:31:00 36.61 Radha [facility] Respiratory rate 2023-06-16 15:31:00 18 /min [facility] Oxygen saturation in Arterial blood by Pulse oximetry 2023-06-16 15:31:00 94 /min [facility] Body weight 2023-06-16 05:26:00 86.047 kg [facility] BMI 2023-06-16 05:26:00 33.60 kg/m2 [facility] Body height 2023-06-13 04:00:00 160 cm [facility] Systolic blood pressure 2023-06-04 13:02:00 93 mm[Hg] [facility] Diastolic blood pressure 2023-06-04 13:02:00 57 mm[Hg] [facility] Heart rate 2023-06-04 13:02:00 101 /min [facility] Respiratory rate 2023-06-04 13:02:00 22 /min [facility] Oxygen saturation in Arterial blood by Pulse oximetry 2023-06-04 13:02:00 95 /min room air [facility] Body temperature 2023-06-04 11:46:00 35.28 Radha [facility] Systolic blood pressure 2023-05-28 16:00:00 154 mm[Hg] [facility] Diastolic blood pressure 2023-05-28 16:00:00 82 mm[Hg] [facility] Heart rate 2023-05-28 16:00:00 89 /min [facility] Body temperature 2023-05-28 16:00:00 36.67 Radha [facility] Respiratory rate 2023-05-28 16:00:00 16 /min [facility] Oxygen saturation in Arterial blood by Pulse oximetry 2023-05-28 16:00:00 97 /min [facility] Body height 2023-05-28 07:00:00 157.5 cm [facility] Body weight 2023-05-28 07:00:00 87.544 kg [facility] BMI 2023-05-28 07:00:00 35.30 kg/m2 [facility] Body height 2023-05-26 09:12:00 157.5 cm [facility] Body weight 2023-05-26 09:12:00 87.091 kg [facility] BMI 2023-05-26 09:12:00 35.12 kg/m2 [facility] Respiratory rate 2023-04-02 16:35:00 18 /min [facility] Oxygen saturation in Arterial blood by Pulse oximetry 2023-04-02 16:35:00 98 /min [facility] Systolic blood pressure 2023-04-02 12:00:00 147 mm[Hg] [facility] Diastolic blood pressure 2023-04-02 12:00:00 97 mm[Hg] [facility] Heart rate 2023-04-02 12:00:00 106 /min [facility] Body temperature 2023-04-02 12:00:00 36.28 Radha [facility] Body height 2023-03-30 02:14:00 157.5 cm [facility] Body weight 2023-03-30 02:14:00 92.08 kg [facility] BMI 2023-03-30 02:14:00 37.13 kg/m2 [facility] Respiratory rate 2022-08-03 14:40:00 18 /min [facility] Systolic blood pressure 2022-08-03 12:13:00 112 mm[Hg] [facility] Diastolic blood pressure 2022-08-03 12:13:00 77 mm[Hg] [facility] Heart rate 2022-08-03 12:13:00 115 /min [facility] Oxygen saturation in Arterial blood by Pulse oximetry 2022-08-03 12:13:00 93 /min [facility] Body temperature 2022-08-03 12:00:00 36.83 Radha [facility] Body height 2022-08-02 21:52:00 160.2 cm [facility] Body weight 2022-08-02 21:52:00 95 kg [facility] BMI 2022-08-02 21:52:00 37.02 kg/m2 [facility] BP Systolic 2022-07-24 13:31:00 136 [...] Source TRANSESOPHAGEAL ECHO 2023-06-16 11:05:00 Aydee Go [facility] T SPOT TB 2023-06-15 04:51:00 Lauren Blair [facility] FUNGITELL R B-D-GLUCAN WITH REFLEX TO TITER 2023-06-15 04:51:00 [facility] GALACTOMANNAN ANTIGEN 2023-06-15 04:51:00 Rossy [facility] VANCOMYCIN LEVEL, TROUGH 2023-06-15 04:51:00 Kaylene Mendosa [facility] T-SPOT(R).TB (QUEST) 2023-06-15 04:27:00 System, Provider Not In [facility] ECHO W CONTRAST & DOPPLER 2023-06-14 09:22:00 [facility] HEMOGLOBIN A1C 2023-06-14 04:08:00 Cara Burgess [facility] CBC (HEMOGRAM ONLY) 2023-06-14 04:08:00 [facility] BASIC METABOLIC PANEL 2023-06-14 04:08:00 [facility] CRYPTOCOCCAL ANTIGEN 2023-06-13 17:21:00 Rossy [facility] HC LAB HIV-1 AG W/HIV-1&2 AB 2023-06-13 17:21:00 Rossy [facility] VENOUS DOPPLER ARM, LEFT 2023-06-13 17:20:00 Cara Burgess [facility] LEGIONELLA ANTIGEN, URINE 2023-06-13 17:00:00 [facility] SPUTUM CULTURE + GRAM STAIN 2023-06-13 14:33:00 [facility] MR LUMBAR SPINE WITH & WITHOUT IV CONTRAST 2023-06-13 13:03:47 Burt Nelson [facility] ECG 12-LEAD 2023-06-13 11:47:02 [facility] ECG 12-LEAD 2023-06-13 11:47:02 Unknown, Hl7 [facility] ECG 12-LEAD 2023-06-13 11:47:02 Unknown, Hl7 [facility] MRSA SCREEN 2023-06-13 09:19:00 [facility] CBC W/PLT COUNT & AUTO DIFFERENTIAL 2023-06-13 06:03:00 Cara Burgess [facility] COMPREHENSIVE METABOLIC PANEL 2023-06-13 06:03:00 Cara Burgess [facility] PROTHROMBIN TIME/INR 2023-06-13 06:03:00 [place] [facility] [facility] CREATINE KINASE (CK) 2023-06-13 06:03:00 Aydee Go [facility] CBC W/PLT COUNT & AUTO DIFFERENTIAL 2023-06-13 06:03:00 Cara Burgess [facility] BLOOD CULTURE 2023-06-13 06:02:00 Cara Burgess [facility] CBC W/PLT COUNT & AUTO DIFFERENTIAL 2023-06-02 04:41:00 Sunil Chu [facility] BASIC METABOLIC PANEL 2023-06-02 04:41:00 Sunil Chu [facility] MAGNESIUM 2023-06-02 04:41:00 Sunil Chu [facility] PHOSPHORUS 2023-06-02 04:41:00 Sunil Chu [facility] CBC W/PLT COUNT & AUTO DIFFERENTIAL 2023-06-02 04:41:00 Sunil Chu [facility] XR SPINE LUMBAR 1 VIEW 2023-06-01 10:31:00 Adam Garcia [facility] XR SPINE LUMBAR 1 VIEW 2023-06-01 09:46:00 Adam Garcia [facility] LAMINECTOMY, SPINE, LUMBAR 2023-06-01 09:10:00 Adam Garcia [facility] PROCEDURE W/ C-ARM 2023-06-01 09:10:00 JoseAdam [facility] LAMINECTOMY, SPINE, LUMBAR 2023-06-01 07:30:00 JoseAdam [facility] PROCEDURE W/ C-ARM 2023-06-01 07:30:00 JoseAdam [facility] SCREEN, URINE 2023-06-01 04:33:00 JoseAdam [facility] BASIC METABOLIC PANEL 2023-05-31 22:55:00 Dallas Gomez [facility] CBC W/PLT COUNT & AUTO DIFFERENTIAL 2023-05-31 22:55:00 Dallas Gomez [facility] PT/APTT 2023-05-31 22:55:00 Gomez Dallas [facility] CBC W/PLT COUNT & AUTO DIFFERENTIAL 2023-05-31 22:55:00 Dallas Gomez [facility] CT NECK SOFT TISSUE WITHOUT IV CONTRAST 2023-05-31 09:39:30 [facility] TYPE AND SCREEN, AUTOMATED 2023-05-31 09:13:00 [facility] BASIC METABOLIC PANEL 2023-05-29 06:43:00 [facility] CBC W/PLT COUNT & AUTO DIFFERENTIAL 2023-05-29 06:43:00 [facility] CBC W/PLT COUNT & AUTO DIFFERENTIAL 2023-05-29 06:43:00 [facility] XR SPINE CERVICAL 2 OR 3 VIEWS 2023-05-28 18:57:00 [facility] FL FLUORO NON-SPECIFIC UP TO 1 HOUR 2023-05-28 10:48:00 Adam Garcia [facility] [place] FLUORO NON-SPECIFIC UP TO 1 HOUR 2023-05-28 10:07:00 Adam Garcia [facility] DISCECTOMY, SPINE, CERVICAL, ANTERIOR APPROACH, WITH FUSION 2023-05-28 08:15:00 Adam Garcia [facility] INSERTION, HARDWARE, SPINAL 2023-05-28 08:15:00 Adam Garcia [facility] PROCEDURE, ALLOGRAFT, FOR SPINE SURGERY 2023-05-28 08:15:00 Jose Adam C [facility] AUTOGRAFT FOR SPINE SURGERY 2023-05-28 08:15:00 Adam Garcia [facility] PROCEDURE W/ C-ARM 2023-05-28 08:15:00 Adam Garcia [facility] NEUROPHYSIOLOGIC MONITORING, INTRAOPERATIVE 2023-05-28 08:15:00 Adam Garcia [facility] PROCEDURE, USING OPERATING MICROSCOPE 2023-05-28 08:15:00 Adam Garcia [facility] HCG, QUANTITATIVE, 2023-05-28 07:42:00 Yue Bui [facility] TYPE AND SCREEN, AUTOMATED 2023-05-28 07:42:00 Quin Scruggs [facility] XR CHEST 1 VIEW PORTABLE / BEDSIDE 2023-04-01 15:32:16 Devora [facility] B-TYPE NATRIURETIC FACTOR (BNP) 2023-04-01 13:32:00 Devora [facility] ECHO W CONTRAST & DOPPLER 2023-03-31 20:18:37 Jasen [facility] MR CERVICAL SPINE WITHOUT IV CONTRAST 2023-03-31 09:25:00 Selin Lewis [facility] CBC (HEMOGRAM ONLY) 2023-03-31 03:45:00 [facility] COMPREHENSIVE METABOLIC PANEL 2023-03-31 03:45:00 [facility] ARTERIAL DOPPLER LEGS BILATERAL 2023-03-30 15:45:00 [facility] ARTERIAL (ALEISHA'S W/ DOPPLER) ONLY 2023-03-30 15:44:00 Jasen [facility] ECG 12-LEAD 2023-03-30 13:06:22 Jasen [facility] ECG 12-LEAD 2023-03-30 13:06:22 Unknown, Hl7 [facility] ECG 12-LEAD 2023-03-30 13:06:22 Unknown, Hl7 [facility] MR THORACIC SPINE WITHOUT IV CONTRAST 2023-03-30 12:29:58 Gloria Reyes [facility] MR LUMBAR SPINE WITHOUT IV CONTRAST 2023-03-30 11:58:00 Gloria Reyes [facility] EEG AWAKE AND DROWSY 2023-03-30 09:57:53 [facility] T[facility] 2023-03-30 09:06:00 [facility]/ REFLEX URINE CULTURE 2023-03-30 03:54:00 [facility] 2023-03-30 03:52:00 Jasen [facility] COMPREHENSIVE METABOLIC PANEL 2023-03-30 03:52:00 [facility] HEMOGLOBIN A1C 2023-03-30 03:52:00 [facility] PT/APTT 2023-03-30 03:52:00 Thomas Lozoya [facility] EKG-SCANNED 2023-03-29 00:00:00 Provider, Default Scanning [facility] CT HEAD WO CONTRAST 2022-12-11 18:36:49 Alfonso Alvarado [facility] URINE DRUG (IMMUNOASSAY) - COMPREHENSIVE DRUG SCREEN 2022-12-11 17:13:00 Alfonso Alvarado [facility] URINALYSIS 2022-12-11 17:13:00 Alfonso Alvarado [facility] CT CHEST PULMONARY ANGIOGRAM 2022-12-11 16:26:39 Alfonso Alvarado [facility] MAGNESIUM 2022-12-11 14:57:00 Alfonso Alvarado [facility] COMP. METABOLIC PANEL (46104) 2022-12-11 14:57:00 Alfonso Alvarado [facility] D-DIMER 2022-12-11 14:15:00 Alfonso Alvarado [facility] XR CHEST 1 VW 2022-12-11 14:10:26 Alfonso Alvarado [facility] TROPONIN I 2022-12-11 14:02:00 Alfonso Alvarado [facility] CBC WITH DIFF 2022-12-11 14:02:00 Alfonso Alvarado [facility] N-TERMINAL PRO-BNP 2022-12-11 14:02:00 Alfonso Alvarado [facility] HB ECG ROUTINE & RHYTHM STRIP 2022-12-11 14:01:08 Alfonso Alvarado [facility] CONSENT/REFUSAL FOR DIAGNOSI S AND TREATMENT 2022-12-11 13:52:01 Doctor Unassigned, Harlan [facility] ECG 12-LEAD 2022-08-03 05:03:32 Unknown, Hl7 Doctor [facility] ECG 12-LEAD 2022-08-03 05:03:32 Unknown, Hl7 [facility] LIPID PANEL 2022-08-02 21:14:00 [facility] TSH/FREE T4 IF INDICATED 2022-08-02 21:14:00 [facility] VITAMIN B12 2022-08-02 21:14:00 [facility] HEMOGLOBIN A1C 2022-08-02 21:14:00 [facility] COMPREHENSIVE METABOLIC PANEL 2022-08-02 21:14:00 [facility] CBC W/PLT COUNT & AUTO DIFFERENTIAL 2022-08-02 21:14:00 [facility] RPR 2022-08-02 21:14:00 [facility] HC LAB HIV-1 AG W/HIV-1&2 AB 2022-08-02 21:14:00 [facility] C-REACTIVE PROTEIN 2022-08-02 21:14:00 [facility] CBC W/PLT COUNT & AUTO DIFFERENTIAL 2022-08-02 21:14:00 [facility] EKG-SCANNED 2022-08-02 00:00:00 Provider, Default Scanning [facility] CT HEAD WO CONTRAST 2022-08-01 23:52:15 Lorenza Lowry [facility] GALV ONLY - INFLUENZA A B RS V PCR 2022-08-01 18:28:00 Letitia Chambers [facility] TRANSTHORACIC ECHO (TTE) COMPLETE W/ CONTRAST 2022-08-01 14:42:00 [facility] 2022-08-01 10:42:00 Lorenza Lowry [facility] BASIC METABOLIC PANEL (NA, K , CL, CO2, GLUCOSE, BUN, CREATININE, CA) 2022-08-01 10:42:00 Lorenza Lowry [facility] CBC WITH DIFF 2022-08-01 10:42[facility]-BNP 2022-08-01 10:42:00 Tc [facility] POCT GLUCOSE (AUTOMATED) 2022-08-01 06:56:00 [facility] 2022-07-31 22:31:36 Alcon [facility] URINALYSIS 2022-07-31 20:52:00 Alcon [facility] URINE DRUG (IMMUNOASSAY) - COMPREHENSIVE DRUG SCREEN W/O REFLEX 2022-07-31 20:52:00 [facility]W 2022-07-31 18:45:17 Sav Rondon [facility] LIPASE 2022-07-31 17:58:00 Alcon [facility] TROPONIN I 2022-07-31 17:58:00 Alcon [facility] COMP. METABOLIC PANEL (08730) 2022-07-31 17:58:00 Sav Rondon [facility] CBC WITH DIFF 2022-07-31 17:58:00 [facility] / INR 2022-07-31 17:58:00 [facility] ACTIV[facility] PARTIAL THRMPLAS DAVID 2022-07-31 17:58:00 Alcon [facility] N-TERMINAL PRO-BNP 2022-07-31 17:58:00 Sav Rondon [facility] HB ECG ROUTINE & RHYTHM STRIP 2022-07-31 17:46:28 Sav Rondon [facility] NOTICE OF PRIVACY PRACTICES 2022-07-31 17:35:38 Doctor Unassigned, Harlan [facility] CONSENT/REFUSAL FOR DIAGNOSI S AND TREATMENT 2022-07-31 17:35:13 Doctor Unassigned, Harlan [facility] PHOSPHORUS 2022-05-08 05:51:00 Shefali Azeem [facility] MAGNESIUM 2022-05-08 05:51:00 Shefali [facility] BASIC METABOLIC PANEL (NA, K , CL, CO2, GLUCOSE, BUN, CREATININE, CA) 2022-05-08 05:51:00 Shefali [facility] CBC WITH DIFF 2022-05-08 05:51:00 Shefali [facility] BASIC METABOLIC PANEL (NA, K , CL, CO2, GLUCOSE, BUN, CREATININE, CA) 2022-05-07 07:09:00 John Cintron [facility] CBC WITH DIFF 2022-05-07 07:09:00 John Cintron [facility] POCT GLUCOSE (AUTOMATED) 2022-05-07 01:16:00 Brandyn Ibrahim [facility] HB ABO GROUPING 2022-05-06 05:07:00 Ismael Dunn [facility] BASIC METABOLIC PANEL (NA, K , CL, CO2, GLUCOSE, BUN, CREATININE, CA) 2022-05-06 05:04:00 Shefali [facility] CBC WITH DIFF 2022-05-06 05:04:00 Shefali [facility] KEPPRA (LEVETIRACETAM) 2022-05-06 05:04:00 Shefali [facility] MR LUMBAR SPINE WO CONTRAST 2022-05-06 02:54:37 Ender Monet [facility] ELECTROENCEPHALOGRAM 2022-05-06 00:00:00 John Cintron [facility] BASIC METABOLIC PANEL (NA, K , CL, CO2, GLUCOSE, BUN, CREATININE, CA) 2022-05-05 07:57:00 Ismael Dunn [facility] CBC WITH DIFF 2022-05-05 07:57:00 Ismael Dunn [facility] PROTHROMBIN TIME / INR 2022-05-05 07:57:00 Ismael Dunn [facility] ACTIVATED PARTIAL THRMPLAS DAVID 2022-05-05 07:57:00 Ismael Dunn [facility] FIBRINOGEN 2022-05-05 07:57:00 Ismael Dunn [facility] EMERGENCY SERVICES AGREEMENT S AND AUTHORIZATIONS 2022-05-04 05:01:00 Doctor Unassigned, Harlan [facility] VITAMIN D, 25-OH 2022-04-15 16:53:00 Sen [place]edo [facility] MR THORACIC SPINE WO CONTRAST 2022-04-15 11:56:19 Harshil [facility] MR CERVICAL SPINE WO CONTRAST 2022-04-15 11:20:00 Harshil [facility] BASIC METABOLIC PANEL (NA, K , CL, CO2, GLUCOSE, BUN, CREATININE, CA) 2022-04-15 10:36:00 Charmaine Morataya [facility] TEST, URINE 2022-04-15 04:39:00 Harshil [facility] URINE DRUG (IMMUNOASSAY) - COMPREHENSIVE DRUG SCREEN 2022-04-15 04:39:00 Harshil [facility] URINALYSIS 2022-04-15 04:39:00 Harshil [facility] TRANSTHORACIC ECHO (TTE) COMPLETE W/ CONTRAST 2022-04-14 16:37:03 Harshil [facility] KEPPRA (LEVETIRACETAM) 2022-04-14 15:30:00 Harshil [facility] MAGNESIUM 2022-04-14 10:03:00 Harshil [facility] BASIC METABOLIC PANEL (NA, K , CL, CO2, GLUCOSE, BUN, CREATININE, CA) 2022-04-14 10:03:00 Harshil [facility] MR LUMBAR SPINE WO CONTRAST 2022-04-14 02:48:12 Harshil [facility] MR STROKE BRAIN WO CONTRAST 2022-04-14 02:29:00 Harshil [facility] CT STROKE ANGIOGRAM HEAD 2022-04-13 18:40:00 Sapna Vargas [facility] CT STROKE ANGIOGRAM NECK 2022-04-13 18:40:00 Sapna Vargas [facility] CT STROKE HEAD WO CONTRAST 2022-04-13 18:36:00 Sapna Vargas [facility] TROPONIN I 2022-04-13 18:17:00 Sapna Vargas [facility] THYROID STIMULATING HORMONE 2022-04-13 18:17:00 Harshil [facility] BASIC METABOLIC PANEL (NA, K , CL, CO2, GLUCOSE, BUN, CREATININE, CA) 2022-04-13 18:17:00 Sapna Vargas [facility] LIPID PANEL (00339)(TOTAL CHOLESTEROL, TRIGLYCERIDES, HDL) 2022-04-13 18:17:00 Harshil [facility] CBC WITHOUT DIFF 2022-04-13 18:17:00 Sapna Vargas [facility] GLYCOSYLATED HEMOGLOBIN (A1C) 2022-04-13 18:17:00 Harshil [facility] PROTHROMBIN TIME / INR 2022-04-13 18:17:00 Sapna Vargas [facility] ACTIVATED PARTIAL THRMPLAS DAVID 2022-04-13 18:17:00 Sapna Vargas [facility] COVID-19 (ID NOW RAPID TESTING) 2022-04-13 18:17:00 Sapna Vargas [facility] LAB ONLY COVID INTERPRETATION 2022-04-13 18:17:00 Sapna Vargas [facility] HB ECG ROUTINE & RHYTHM STRIP 2022-04-13 18:15:49 Sapna Vargas [facility] CONSENT/REFUSAL FOR DIAGNOSI S AND TREATMENT 2022-04-13 18:05:14 Doctor Unassigned, Harlan [facility] HOSPITAL ADMISSION 2022-04-13 05:01:00 Doctor Unassigned, Harlan [facility] SARS-COV-2 COVID-19 VACCINE 12 YRS+,0.3ML,IM (PFIZER - [facility]) 2022-02-19 15:21:12 Doctor Unassigned, Harlan [facility] URINE DRUG (IMMUNOASSAY) - COMPREHENSIVE DRUG SCREEN W/O REFLEX 2021-11-23 21:21:00 Nichelle Virk [facility] CT HEAD WO CONTRAST 2021-11-23 20:58:00 Nichlele Virk [facility] POCT TEST 2021-11-23 20:46:00 Nichelle Virk [facility] URINALYSIS 2021-11-23 20:43:00 Nichelle Virk [facility] LIPASE 2021-11-23 20:27:00 Segundo Virk Angelia [facility] TROPONIN I 2021-11-23 [facility]:27[facility]OLIC PANEL ([id number]) 2021-11-23 20:27:00 Nichelle Virk [facility] CBC WITH DIFF 2021-11-23 20:27[facility]OMATED[facility] 2021-11-23 20:15:00 Doctor Unassigned, [place] [facility] SARS-COV-2 COVID-19 VACCINE,0.3ML,IM (PFIZER) 2021-05-24 14:23:12 Doctor Unassigned, [place] [facility] SARS-COV-2 COVID-19 VACCINE,0.3ML,IM (PFIZER) 2021-05-03 14:59:29 Doctor Unassigned, [place] [facility] EMERGENCY SERVICES AGREEMENT S AND AUTHORIZATIONS 2021-04-16 05:01:00 Doctor Unassigned, [place] [facility] URINALYSIS 2021-03-17 03:09:00 Fabrice Chakraborty [facility] XR CHEST 1 VW 2021-03-17 01:45:07 [facility] 2021-03-17 01:35:00 Fabrice Chakraborty [facility] COMP. METABOLIC PANEL ([id number]) 2021-03-17 01:35:00 Fabrice Chakraborty [facility] CBC WITH DIFF 2021-03-17 01:35:00 [facility] 2021-03-17 01:35:00 Fabrice Chakraborty [facility] COVID-19 (ID NOW RAPID TESTING) 2021-03-17 00:58:00 Brian Ray [facility] CONSENT/REFUSAL FOR DIAGNOSI S AND TREATMENT 2021-03-17 00:32:59 Doctor Unassigned, [place] [facility] COVID-19 (ID NOW RAPID TESTING) 2021-02-19 17:04:00 Anali Monroy [facility] CT ABDOMEN PELVIS W CONTRAST 2021-02-19 16:41:18 Anali Monroy [facility] LIPASE 2021-02-19 15:58:00 Anali Monroy [facility] COMP. METABOLIC PANEL ([id number]) 2021-02-19 15:58:00 Anali Monroy [facility] CBC WITH DIFF 2021-02-19 15:58:00 Anali Monroy [facility] URINALYSIS 2021-02-19 15:58:00 Anali Monroy [facility] NOTICE OF PRIVACY PRACTICES 2021-02-19 15:30:46 Doctor Unassigned, [place] [facility] CONSENT/REFUSAL FOR DIAGNOSI S AND TREATMENT 2021-02-19 15:30:30 Doctor Unassigned, [place] [facility] Plan of Care Planned Activity Planned Date Details Comments Source Future Scheduled Test 2025-08-02 00:00:00 Lipid panel (procedure) [code = 80975100] [facility] Future Scheduled Test 2025-08-02 00:00:00 Lipid panel (procedure) [code = [id number]] [facility] Future Scheduled Test 2025-08-02 00:00:00 Lipid panel (procedure) [code = 31161010] [facility] Future Scheduled Test 2025-08-02 00:00:00 Lipid panel (procedure) [code = [id number]] [facility] Future Scheduled Test 2025-08-02 00:00:00 Lipid panel (procedure) [code = [id number]] [facility] Future Scheduled Test 2025-08-02 00:00:00 Lipid panel (procedure) [code = 58293572] [facility] Future Scheduled Test 2025-08-02 00:00:00 Lipid panel (procedure) [code = 39583070] [facility] Future Scheduled Test 2025-08-02 00:00:00 Lipid panel (procedure) [code = 90874783] [facility] Future Scheduled Test 2025-08-02 00:00:00 Lipid panel (procedure) [code = 42122502] [facility] Future Scheduled Test 2025-08-02 00:00:00 Lipid panel (procedure) [code = 63977918] [facility] Future Scheduled Test 2025-08-02 00:00:00 Lipid panel (procedure) [code = 20541208] [facility] Future Scheduled Test 2025-08-02 00:00:00 Lipid panel (procedure) [code = 32050696] [facility] Future Scheduled Test 2025-08-02 00:00:00 Lipid panel (procedure) [code = 71953277] [facility] Future Scheduled Test 2025-08-02 00:00:00 Lipid panel (procedure) [code = 09960697] [facility] Future Scheduled Test 2025-08-02 00:00:00 Lipid panel (procedure) [code = 05254097] [facility] Future Scheduled Test 2025-08-02 00:00:00 Lipid panel (procedure) [code = 41690920] [facility] Future Scheduled Test 2025-08-02 00:00:00 Lipid panel (procedure) [code = 86281348] [facility] Future Scheduled Test 2025-08-02 00:00:00 Lipid panel (procedure) [code = 77407415] [facility] Future Scheduled Test 2025-08-02 00:00:00 Lipid panel (procedure) [code = 72482192] [facility] Future Scheduled Test 2025-08-02 00:00:00 Lipid panel (procedure) [code = 11132497] [facility] Future Scheduled Test 2025-08-02 00:00:00 Lipid panel (procedure) [code = 34536525] [facility] Future Scheduled Test 2025-08-02 00:00:00 Lipid panel (procedure) [code = 66246193] [facility] Future Scheduled Test 2025-08-02 00:00:00 Lipid panel (procedure) [code = 79692141] [facility] Future Scheduled Test 2025-08-02 00:00:00 Lipid panel (procedure) [code = 92255738] [facility] Future Scheduled Test 2025-08-02 00:00:00 Lipid panel (procedure) [code = 92637065] [facility] Future Scheduled Test 2025-08-02 00:00:00 Lipid panel (procedure) [code = 08972884] [facility] Future Scheduled Test 2025-08-02 00:00:00 Lipid panel (procedure) [code = 49733047] [facility] Future Scheduled Test 2025-08-02 00:00:00 Lipid panel (procedure) [code = 16362641] [facility] Future Scheduled Test 2025-08-02 00:00:00 Lipid panel (procedure) [code = 94117872] [facility] Future Scheduled Test 2025-08-02 00:00:00 Lipid panel (procedure) [code = 29268551] [facility] Future Scheduled Test 2025-08-02 00:00:00 Lipid panel (procedure) [code = 77470054] [facility] Future Scheduled Test 2025-08-02 00:00:00 Lipid panel (procedure) [code = 45921192] [facility] Future Scheduled Test 2025-08-02 00:00:00 Lipid panel (procedure) [code = 78738210] [facility] Future Scheduled Test 2025-08-02 00:00:00 Lipid panel (procedure) [code = 65113394] [facility] Future Scheduled Test 2025-08-02 00:00:00 Lipid panel (procedure) [code = 28359522] [facility] Future Scheduled Test 2025-08-02 00:00:00 Lipid panel (procedure) [code = 56759209] [facility] Future Scheduled Test 2025-08-02 00:00:00 Lipid panel (procedure) [code = 72464109] [facility] Scheduled Test 2025-08-02 00:00:00 Lipid panel (procedure) [code = 52677595] [facility] Future Scheduled Test 2025-08-02 00:00:00 Lipid panel (procedure) [code = 67228268] [facility] Scheduled Test 2024-05-28 00:00:00 Tobacco Cessation Counseling and Screening (12+) [code = Tobacco Cessation Counseling and Screening (12+)] [facility] Scheduled Test 2024-05-28 00:00:00 Tobacco Cessation Counseling and Screening (12+) [code = Tobacco Cessation Counseling and Screening (12+)] [facility] Scheduled Test 2024-05-28 00:00:00 Tobacco Cessation Counseling and Screening (12+) [code = Tobacco Cessation Counseling and Screening (12+)] [facility] Scheduled Test 2024-05-28 00:00:00 Tobacco Cessation Counseling and Screening (12+) [code = Tobacco Cessation Counseling and Screening (12+)] [facility] Scheduled Test 2024-05-28 00:00:00 Tobacco Cessation Counseling and Screening (12+) [code = Tobacco Cessation Counseling and Screening (12+)] [facility] Scheduled Test 2024-05-28 00:00:00 Tobacco Cessation Counseling and Screening (12+) [code = Tobacco Cessation Counseling and Screening (12+)] [facility] Scheduled Test 2024-05-28 00:00:00 Tobacco Cessation Counseling and Screening (12+) [code = Tobacco Cessation Counseling and Screening (12+)] [facility] Scheduled Test 2024-05-28 00:00:00 Tobacco Cessation Counseling and Screening (12+) [code = Tobacco Cessation Counseling and Screening (12+)] [facility] Scheduled Test 2024-05-28 00:00:00 Tobacco Cessation Counseling and Screening (12+) [code = Tobacco Cessation Counseling and Screening (12+)] [facility] Scheduled Test 2024-05-28 00:00:00 Tobacco Cessation Counseling and Screening (12+) [code = Tobacco Cessation Counseling and Screening (12+)] [facility] Scheduled Test 2024-05-28 00:00:00 Tobacco Cessation Counseling and Screening (12+) [code = Tobacco Cessation Counseling and Screening (12+)] [facility] Future Scheduled Test 2024-05-28 00:00:00 Tobacco Cessation Counseling and Screening (12+) [code = Tobacco Cessation Counseling and Screening (12+)] [facility] Future Scheduled Test 2024-05-28 00:00:00 Tobacco Cessation Counseling and Screening (12+) [code = Tobacco Cessation Counseling and Screening (12+)] [facility] Future Scheduled Test 2024-05-28 00:00:00 Tobacco Cessation Counseling and Screening (12+) [code = Tobacco Cessation Counseling and Screening (12+)] [facility] Future Scheduled Test 2024-05-26 00:00:00 Tobacco Cessation Counseling and Screening (12+) [code = Tobacco Cessation Counseling and Screening (12+)] [facility] Future Scheduled Test 2024-05-26 00:00:00 Tobacco Cessation Counseling and Screening (12+) [code = Tobacco Cessation Counseling and Screening (12+)] [facility] Future Scheduled Test 2023-07-20 00:00:00 DEPRESSION SCREENING (12+) [code = DEPRESSION SCREENING (12+)] [facility] Future Scheduled Test 2023-07-20 00:00:00 DEPRESSION SCREENING (12+) [code = DEPRESSION SCREENING (12+)] [facility] Future Scheduled Test 2023-07-20 00:00:00 DEPRESSION SCREENING (12+) [code = DEPRESSION SCREENING (12+)] [facility] Future Scheduled Test 2023-07-20 00:00:00 DEPRESSION SCREENING (12+) [code = DEPRESSION SCREENING (12+)] [facility] Future Scheduled Test 2023-07-20 00:00:00 DEPRESSION SCREENING (12+) [code = DEPRESSION SCREENING (12+)] [facility] Future Scheduled Test 2023-07-20 00:00:00 DEPRESSION SCREENING (12+) [code = DEPRESSION SCREENING (12+)] [facility] Future Scheduled Test 2023-03-20 00:00:00 INFLUENZA VACCINE (Season Ended) [code = INFLUENZA VACCINE (Season Ended)] [facility] Future Scheduled Test 2023-03-20 00:00:00 INFLUENZA VACCINE (Season Ended) [code = INFLUENZA VACCINE (Season Ended)] [facility] Future Scheduled Test 2023-03-20 00:00:00 INFLUENZA VACCINE (Season Ended) [code = INFLUENZA VACCINE (Season Ended)] [facility] Future Scheduled Test 2023-03-20 00:00:00 INFLUENZA VACCINE (Season Ended) [code = INFLUENZA VACCINE (Season Ended)] [facility] Future Scheduled Test 2023-03-20 00:00:00 INFLUENZA VACCINE (Season Ended) [code = INFLUENZA VACCINE (Season Ended)] [facility] Future Scheduled Test 2023-03-20 00:00:00 INFLUENZA VACCINE (Season Ended) [code = INFLUENZA VACCINE (Season Ended)] [facility] Future Scheduled Test 2023-03-20 00:00:00 Influenza Vaccine (Season Ended) [code = Influenza Vaccine (Season Ended)] [facility] Future Scheduled Test 2023-03-20 00:00:00 Influenza Vaccine (Season Ended) [code = Influenza Vaccine (Season Ended)] [facility] Future Scheduled Test 2023-03-20 00:00:00 Influenza Vaccine (#1) [code = Influenza Vaccine (#1)] [facility] Future Scheduled Test 2023-03-20 00:00:00 Influenza Vaccine (#1) [code = Influenza Vaccine (#1)] [facility] Future Scheduled Test 2023-03-20 00:00:00 Influenza Vaccine (#1) [code = Influenza Vaccine (#1)] [facility] Future Scheduled Test 2023-03-20 00:00:00 Influenza Vaccine (#1) [code = Influenza Vaccine (#1)] [facility] Future Scheduled Test 2023-03-20 00:00:00 COVID-19 VACCINE ( season) [code = COVID-19 VACCINE ( season)] [facility] Future Scheduled Test 2023-03-20 00:00:00 Influenza Vaccine (#1) [code = Influenza Vaccine (#1)] [facility] Future Scheduled Test 2023-03-20 00:00:00 COVID-19 VACCINE ( season) [code = COVID-19 VACCINE ( season)] [facility] Future Scheduled Test 2023-03-20 00:00:00 Influenza Vaccine (#1) [code = Influenza Vaccine (#1)] [facility] Future Scheduled Test 2023-03-20 00:00:00 COVID-19 VACCINE ( season) [code = COVID-19 VACCINE ( season)] [facility] Future Scheduled Test 2023-03-20 00:00:00 Influenza Vaccine (#1) [code = Influenza Vaccine (#1)] [facility] Future Scheduled Test 2023-03-20 00:00:00 COVID-19 VACCINE ( season) [code = COVID-19 VACCINE ()] [facility] Future Scheduled Test 2023-03-20 00:00:00 Influenza Vaccine (#1) [code = Influenza Vaccine (#1)] [facility] Future Scheduled Test 2023-03-20 00:00:00 Influenza Vaccine (#1) [code = Influenza Vaccine (#1)] [facility] Future Scheduled Test 2023-03-20 00:00:00 COVID-19 VACCINE ( season) [code = COVID-19 VACCINE ( season)] [facility] Future Scheduled Test 2023-03-20 00:00:00 Influenza Vaccine (#1) [code = Influenza Vaccine (#1)] [facility] Future Scheduled Test 2023-03-20 00:00:00 COVID-19 VACCINE ( season) [code = COVID-19 VACCINE ( season)] [facility] Future Scheduled Test 2023-03-20 00:00:00 Influenza Vaccine (#1) [code = Influenza Vaccine (#1)] [facility] Future Scheduled Test 2023-03-20 00:00:00 COVID-19 VACCINE ( season) [code = COVID-19 VACCINE ()] [facility] Future Scheduled Test 2023-03-20 00:00:00 Influenza Vaccine (#1) [code = Influenza Vaccine (#1)] [facility] Future Scheduled Test 2023-03-20 00:00:00 Influenza Vaccine (#1) [code = Influenza Vaccine (#1)] [facility] Future Scheduled Test 2023-03-20 00:00:00 Influenza Vaccine (#1) [code = Influenza Vaccine (#1)] [facility] Future Scheduled Test 2023-03-20 00:00:00 Influenza Vaccine (#1) [code = Influenza Vaccine (#1)] [facility] Future Scheduled Test 2023-03-20 00:00:00 Influenza Vaccine (#1) [code = Influenza Vaccine (#1)] [facility] Future Scheduled Test 2023-03-20 00:00:00 Influenza Vaccine (#1) [code = Influenza Vaccine (#1)] [facility] Future Scheduled Test 2023-03-20 00:00:00 Influenza Vaccine (#1) [code = Influenza Vaccine (#1)] [facility] Future Scheduled Test 2023-03-20 00:00:00 Influenza Vaccine (#1) [code = Influenza Vaccine (#1)] [facility] Future Scheduled Test 2023-03-20 00:00:00 Influenza Vaccine (#1) [code = Influenza Vaccine (#1)] [facility] Future Scheduled Test 2023-03-20 00:00:00 Influenza Vaccine (#1) [code = Influenza Vaccine (#1)] [facility] Future Scheduled Test 2023-03-20 00:00:00 Influenza Vaccine (#1) [code = Influenza Vaccine (#1)] [facility] Future Scheduled Test 2023-03-20 00:00:00 Influenza Vaccine (#1) [code = Influenza Vaccine (#1)] [facility] Future Scheduled Test 2023-03-20 00:00:00 Influenza Vaccine (#1) [code = Influenza Vaccine (#1)] [facility] Future Scheduled Test 2023-03-20 00:00:00 Influenza Vaccine (#1) [code = Influenza Vaccine (#1)] [facility] Future Scheduled Test 2023-03-20 00:00:00 Influenza Vaccine (#1) [code = Influenza Vaccine (#1)] [facility] Future Scheduled Test 2023-03-20 00:00:00 COVID-19 VACCINE ( season) [code = COVID-19 VACCINE ()] [facility] Future Scheduled Test 2023-03-20 00:00:00 COVID-19 VACCINE ( season) [code = COVID-19 VACCINE ()] [facility] Future Scheduled Test 2023-03-20 00:00:00 Influenza Vaccine (#1) [code = Influenza Vaccine (#1)] [facility] Future Scheduled Test 2022-07-20 00:00:00 DEPRESSION SCREENING (12+) [code = DEPRESSION SCREENING (12+)] [facility] Future Scheduled Test 2022-07-20 00:00:00 DEPRESSION SCREENING (12+) [code = DEPRESSION SCREENING (12+)] [facility] Future Scheduled Test 2022-07-20 00:00:00 DEPRESSION SCREENING (12+) [code = DEPRESSION SCREENING (12+)] [facility] Future Scheduled Test 2022-07-20 00:00:00 DEPRESSION SCREENING (12+) [code = DEPRESSION SCREENING (12+)] [facility] Future Scheduled Test 2022-07-20 00:00:00 DEPRESSION SCREENING (12+) [code = DEPRESSION SCREENING (12+)] [facility] Future Scheduled Test 2022-07-20 00:00:00 DEPRESSION SCREENING (12+) [code = DEPRESSION SCREENING (12+)] [facility] Future Scheduled Test 2022-07-20 00:00:00 DEPRESSION SCREENING (12+) [code = DEPRESSION SCREENING (12+)] [facility] Future Scheduled Test 2022-07-20 00:00:00 DEPRESSION SCREENING (12+) [code = DEPRESSION SCREENING (12+)] [facility] Future Scheduled Test 2022-07-20 00:00:00 DEPRESSION SCREENING (12+) [code = DEPRESSION SCREENING (12+)] [facility] Future Scheduled Test 2022-07-20 00:00:00 DEPRESSION SCREENING (12+) [code = DEPRESSION SCREENING (12+)] [facility] Future Scheduled Test 2022-07-20 00:00:00 DEPRESSION SCREENING (12+) [code = DEPRESSION SCREENING (12+)] [facility] Future Scheduled Test 2022-07-20 00:00:00 DEPRESSION SCREENING (12+) [code = DEPRESSION SCREENING (12+)] [facility] Future Scheduled Test 2022-07-20 00:00:00 DEPRESSION SCREENING (12+) [code = DEPRESSION SCREENING (12+)] [facility] Future Scheduled Test 2022-07-20 00:00:00 DEPRESSION SCREENING (12+) [code = DEPRESSION SCREENING (12+)] [facility] Future Scheduled Test 2022-07-20 00:00:00 DEPRESSION SCREENING (12+) [code = DEPRESSION SCREENING (12+)] [facility] Future Scheduled Test 2022-07-20 00:00:00 DEPRESSION SCREENING (12+) [code = DEPRESSION SCREENING (12+)] [facility] Future Scheduled Test 2022-07-20 00:00:00 DEPRESSION SCREENING (12+) [code = DEPRESSION SCREENING (12+)] [facility] Future Scheduled Test 2022-07-20 00:00:00 DEPRESSION SCREENING (12+) [code = DEPRESSION SCREENING (12+)] [facility] Future Scheduled Test 2022-07-20 00:00:00 DEPRESSION SCREENING (12+) [code = DEPRESSION SCREENING (12+)] [facility] Future Scheduled Test 2022-07-20 00:00:00 DEPRESSION SCREENING (12+) [code = DEPRESSION SCREENING (12+)] [facility] Future Scheduled Test 2022-07-20 00:00:00 DEPRESSION SCREENING (12+) [code = DEPRESSION SCREENING (12+)] [facility] Future Scheduled Test 2022-07-20 00:00:00 DEPRESSION SCREENING (12+) [code = DEPRESSION SCREENING (12+)] [facility] Future Scheduled Test 2022-07-20 00:00:00 DEPRESSION SCREENING (12+) [code = DEPRESSION SCREENING (12+)] [facility] Future Scheduled Test 2022-07-20 00:00:00 DEPRESSION SCREENING (12+) [code = DEPRESSION SCREENING (12+)] [facility] Future Scheduled Test 2022-07-20 00:00:00 DEPRESSION SCREENING (12+) [code = DEPRESSION SCREENING (12+)] [facility] Future Scheduled Test 2022-07-20 00:00:00 DEPRESSION SCREENING (12+) [code = DEPRESSION SCREENING (12+)] [facility] Future Scheduled Test 2022-07-20 00:00:00 DEPRESSION SCREENING (12+) [code = DEPRESSION SCREENING (12+)] [facility] Future Scheduled Test 2022-07-20 00:00:00 DEPRESSION SCREENING (12+) [code = DEPRESSION SCREENING (12+)] [facility] Future Scheduled Test 2022-07-20 00:00:00 DEPRESSION SCREENING (12+) [code = DEPRESSION SCREENING (12+)] [facility] Future Scheduled Test 2022-07-20 00:00:00 DEPRESSION SCREENING (12+) [code = DEPRESSION SCREENING (12+)] [facility] Future Scheduled Test 2022-07-20 00:00:00 DEPRESSION SCREENING (12+) [code = DEPRESSION SCREENING (12+)] [facility] Future Scheduled Test 2022-07-20 00:00:00 DEPRESSION SCREENING (12+) [code = DEPRESSION SCREENING (12+)] [facility] Future Scheduled Test 2022-07-20 00:00:00 DEPRESSION SCREENING (12+) [code = DEPRESSION SCREENING (12+)] [facility] Future Scheduled Test 2022-06-21 00:00:00 COVID-19 VACCINE (4 - Booster for Pfizer series) [code = COVID-19 VACCINE (4 - Booster for Pfizer series)] [facility] Future Scheduled Test 2022-06-21 00:00:00 COVID-19 VACCINE (4 - Booster for Pfizer series) [code = COVID-19 VACCINE (4 - Booster for Pfizer series)] [facility] Future Scheduled Test 2022-06-21 00:00:00 COVID-19 VACCINE (4 - Booster for Pfizer series) [code = COVID-19 VACCINE (4 - Booster for Pfizer series)] [facility] Future Scheduled Test 2022-06-21 00:00:00 COVID-19 VACCINE (4 - Booster for Pfizer series) [code = COVID-19 VACCINE (4 - Booster for Pfizer series)] [facility] Future Scheduled Test 2022-04-16 00:00:00 COVID-19 VACCINE (4 - Booster for Pfizer series) [code = COVID-19 VACCINE (4 - Booster for Pfizer series)] [facility] Future Scheduled Test 2022-04-16 00:00:00 COVID-19 VACCINE (4 - Booster for Pfizer series) [code = COVID-19 VACCINE (4 - Booster for Pfizer series)] [facility] Future Scheduled Test 2022-04-16 00:00:00 COVID-19 VACCINE (4 - Booster for Pfizer series) [code = COVID-19 VACCINE (4 - Booster for Pfizer series)] [facility] Future Scheduled Test 2022-04-16 00:00:00 COVID-19 VACCINE (4 - Booster for Pfizer series) [code = COVID-19 VACCINE (4 - Booster for Pfizer series)] [facility] Future Scheduled Test 2022-04-16 00:00:00 COVID-19 VACCINE (4 - Booster for Pfizer series) [code = COVID-19 VACCINE (4 - Booster for Pfizer series)] [facility] Future Scheduled Test 2022-04-16 00:00:00 COVID-19 VACCINE (4 - Booster for Pfizer series) [code = COVID-19 VACCINE (4 - Booster for Pfizer series)] [facility] Future Scheduled Test 2022-04-16 00:00:00 COVID-19 VACCINE (4 - Booster for Pfizer series) [code = COVID-19 VACCINE (4 - Booster for Pfizer series)] [facility] Future Scheduled Test 2022-04-16 00:00:00 COVID-19 VACCINE (4 - Booster for Pfizer series) [code = COVID-19 VACCINE (4 - Booster for Pfizer series)] [facility] Future Scheduled Test 2022-04-16 00:00:00 COVID-19 VACCINE (4 - Booster for Pfizer series) [code = COVID-19 VACCINE (4 - Booster for Pfizer series)] [facility] Future Scheduled Test 2022-04-16 00:00:00 COVID-19 VACCINE (4 - Booster for Pfizer series) [code = COVID-19 VACCINE (4 - Booster for Pfizer series)] [facility] Future Scheduled Test 2022-04-16 00:00:00 COVID-19 VACCINE (4 - Booster for Pfizer series) [code = COVID-19 VACCINE (4 - Booster for Pfizer series)] [facility] Future Scheduled Test 2022-04-16 00:00:00 COVID-19 VACCINE (4 - Booster for Pfizer series) [code = COVID-19 VACCINE (4 - Booster for Pfizer series)] [facility] Future Scheduled Test 2022-04-16 00:00:00 COVID-19 VACCINE (4 - Booster for Pfizer series) [code = COVID-19 VACCINE (4 - Booster for Pfizer series)] [facility] Future Scheduled Test 2022-04-16 00:00:00 COVID-19 VACCINE (4 - Booster for Pfizer series) [code = COVID-19 VACCINE (4 - Booster for Pfizer series)] [facility] Future Scheduled Test 2022-04-16 00:00:00 COVID-19 VACCINE (4 - Booster for Pfizer series) [code = COVID-19 VACCINE (4 - Booster for Pfizer series)] [facility] Future Scheduled Test 2022-04-16 00:00:00 COVID-19 VACCINE (4 - Booster for Pfizer series) [code = COVID-19 VACCINE (4 - Booster for Pfizer series)] [facility] Future Scheduled Test 2022-04-16 00:00:00 COVID-19 VACCINE (4 - Booster for Pfizer series) [code = COVID-19 VACCINE (4 - Booster for Pfizer series)] [facility] Future Scheduled Test 2022-04-16 00:00:00 COVID-19 VACCINE (4 - Booster for Pfizer series) [code = COVID-19 VACCINE (4 - Booster for Pfizer series)] [facility] Future Scheduled Test 2022-04-16 00:00:00 COVID-19 VACCINE (4 - Booster for Pfizer series) [code = COVID-19 VACCINE (4 - Booster for Pfizer series)] [facility] Future Scheduled Test 2022-04-16 00:00:00 COVID-19 VACCINE (4 - Booster for Pfizer series) [code = COVID-19 VACCINE (4 - Booster for Pfizer series)] [facility] Future Scheduled Test 2022-04-16 00:00:00 COVID-19 VACCINE (4 - Pfizer series) [code = COVID-19 VACCINE (4 - Pfizer series)] [facility] Future Scheduled Test 2022-04-16 00:00:00 COVID-19 VACCINE (4 - Pfizer series) [code = COVID-19 VACCINE (4 - Pfizer series)] [facility] Future Scheduled Test 2022-04-16 00:00:00 COVID-19 VACCINE (4 - Pfizer series) [code = COVID-19 VACCINE (4 - Pfizer series)] [facility] Future Scheduled Test 2022-04-16 00:00:00 COVID-19 VACCINE (4 - Pfizer series) [code = COVID-19 VACCINE (4 - Pfizer series)] [facility] Future Scheduled Test 2022-04-16 00:00:00 COVID-19 VACCINE (4 - Booster for Pfizer series) [code = COVID-19 VACCINE (4 - Booster for Pfizer series)] [facility] Future Scheduled Test 2022-04-16 00:00:00 COVID-19 VACCINE (4 - Pfizer series) [code = COVID-19 VACCINE (4 - Pfizer series)] [facility] Future Scheduled Test 2022-03-20 00:00:00 INFLUENZA VACCINE (#1) [code = INFLUENZA VACCINE (#1)] [facility] Future Scheduled Test 2022-03-20 00:00:00 INFLUENZA VACCINE (#1) [code = INFLUENZA VACCINE (#1)] [facility] Future Scheduled Test 2022-03-20 00:00:00 INFLUENZA VACCINE (#1) [code = INFLUENZA VACCINE (#1)] [facility] Future Scheduled Test 2022-03-20 00:00:00 INFLUENZA VACCINE (#1) [code = INFLUENZA VACCINE (#1)] [facility] Future Scheduled Test 2022-01-14 00:00:00 SHINGLES VACCINES (1 of 2) [code = SHINGLES VACCINES (1 of 2)] [facility] Scheduled Test 2022-01-14 00:00:00 SHINGLES VACCINES (1 of 2) [code = SHINGLES VACCINES (1 of 2)] [facility] Future Scheduled Test 2022-01-14 00:00:00 SHINGLES VACCINES (1 of 2) [code = SHINGLES VACCINES (1 of 2)] [facility] Future Scheduled Test 2022-01-14 00:00:00 SHINGLES VACCINES (1 of 2) [code = SHINGLES VACCINES (1 of 2)] [facility] Future Scheduled Test 2022-01-14 00:00:00 SHINGLES VACCINES (1 of 2) [code = SHINGLES VACCINES (1 of 2)] [facility] Future Scheduled Test 2022-01-14 00:00:00 SHINGLES VACCINES (1 of 2) [code = SHINGLES VACCINES (1 of 2)] [facility] Future Scheduled Test 2022-01-14 00:00:00 SHINGLES VACCINES (1 of 2) [code = SHINGLES VACCINES (1 of 2)] [facility] Future Scheduled Test 2022-01-14 00:00:00 SHINGLES VACCINES (1 of 2) [code = SHINGLES VACCINES (1 of 2)] [facility] Scheduled Test 2022-01-14 00:00:00 SHINGLES VACCINES (1 of 2) [code = SHINGLES VACCINES (1 of 2)] [facility] Future Scheduled Test 2022-01-14 00:00:00 SHINGLES VACCINES (1 of 2) [code = SHINGLES VACCINES (1 of 2)] [facility] Scheduled Test 2022-01-14 00:00:00 SHINGLES VACCINES (1 of 2) [code = SHINGLES VACCINES (1 of 2)] [facility] Future Scheduled Test 2022-01-14 00:00:00 SHINGLES VACCINES (1 of 2) [code = SHINGLES VACCINES (1 of 2)] [facility] Future Scheduled Test 2022-01-14 00:00:00 SHINGLES VACCINES (1 of 2) [code = SHINGLES VACCINES (1 of 2)] [facility] Future Scheduled Test 2022-01-14 00:00:00 SHINGLES VACCINES (1 of 2) [code = SHINGLES VACCINES (1 of 2)] [facility] Scheduled Test 2022-01-14 00:00:00 SHINGLES VACCINES (1 of 2) [code = SHINGLES VACCINES (1 of 2)] [facility] Scheduled Test 2022-01-14 00:00:00 Screening for malignant neoplasm of lung (procedure) [code = [id number]] [facility] Future Scheduled Test 2022-01-14 00:00:00 SHINGLES VACCINES (1 of 2) [code = SHINGLES VACCINES (1 of 2)] [facility] Future Scheduled Test 2022-01-14 00:00:00 Screening for malignant neoplasm of lung (procedure) [code = [id number]] [facility] Future Scheduled Test 2022-01-14 00:00:00 SHINGLES VACCINES (1 of 2) [code = SHINGLES VACCINES (1 of 2)] [facility] Future Scheduled Test 2022-01-14 00:00:00 Screening for malignant neoplasm of lung (procedure) [code = 787052308] [facility] Future Scheduled Test 2022-01-14 00:00:00 SHINGLES VACCINES (1 of 2) [code = SHINGLES VACCINES (1 of 2)] [facility] Future Scheduled Test 2022-01-14 00:00:00 Screening for malignant neoplasm of lung (procedure) [code = [id number]] [facility] Future Scheduled Test 2022-01-14 00:00:00 SHINGLES VACCINES (1 of 2) [code = SHINGLES VACCINES (1 of 2)] [facility] Future Scheduled Test 2022-01-14 00:00:00 Screening for malignant neoplasm of lung (procedure) [code = 532819595] [facility] Future Scheduled Test 2022-01-14 00:00:00 SHINGLES VACCINES (1 of 2) [code = SHINGLES VACCINES (1 of 2)] [facility] Future Scheduled Test 2022-01-14 00:00:00 Screening for malignant neoplasm of lung (procedure) [code = 557975436] [facility] Future Scheduled Test 2022-01-14 00:00:00 SHINGLES VACCINES (1 of 2) [code = SHINGLES VACCINES (1 of 2)] [facility] Future Scheduled Test 2022-01-14 00:00:00 Screening for malignant neoplasm of lung (procedure) [code = 484684486] [facility] Future Scheduled Test 2022-01-14 00:00:00 SHINGLES VACCINES (1 of 2) [code = SHINGLES VACCINES (1 of 2)] [facility] Future Scheduled Test 2022-01-14 00:00:00 Screening for malignant neoplasm of lung (procedure) [code = 610921670] [facility] Future Scheduled Test 2022-01-14 00:00:00 SHINGLES VACCINES (1 of 2) [code = SHINGLES VACCINES (1 of 2)] [facility] Future Scheduled Test 2022-01-14 00:00:00 Screening for malignant neoplasm of lung (procedure) [code = 333108250] [facility] Future Scheduled Test 2022-01-14 00:00:00 SHINGLES VACCINES (1 of 2) [code = SHINGLES VACCINES (1 of 2)] [facility] Future Scheduled Test 2022-01-14 00:00:00 Screening for malignant neoplasm of lung (procedure) [code = 337693031] [facility] Future Scheduled Test 2022-01-14 00:00:00 SHINGLES VACCINES (1 of 2) [code = SHINGLES VACCINES (1 of 2)] [facility] Future Scheduled Test 2022-01-14 00:00:00 Screening for malignant neoplasm of lung (procedure) [code = 457049129] [facility] Future Scheduled Test 2022-01-14 00:00:00 SHINGLES VACCINES (1 of 2) [code = SHINGLES VACCINES (1 of 2)] [facility] Future Scheduled Test 2022-01-14 00:00:00 Screening for malignant neoplasm of lung (procedure) [code = 133489530] [facility] Future Scheduled Test 2022-01-14 00:00:00 SHINGLES VACCINES (1 of 2) [code = SHINGLES VACCINES (1 of 2)] [facility] Future Scheduled Test 2022-01-14 00:00:00 Screening for malignant neoplasm of lung (procedure) [code = 830150210] [facility] Future Scheduled Test 2022-01-14 00:00:00 SHINGLES VACCINES (1 of 2) [code = SHINGLES VACCINES (1 of 2)] [facility] Future Scheduled Test 2022-01-14 00:00:00 Screening for malignant neoplasm of lung (procedure) [code = 438976530] [facility] Future Scheduled Test 2022-01-14 00:00:00 SHINGLES VACCINES (1 of 2) [code = SHINGLES VACCINES (1 of 2)] [facility] Future Scheduled Test 2022-01-14 00:00:00 SHINGLES VACCINES (1 of 2) [code = SHINGLES VACCINES (1 of 2)] [facility] Future Scheduled Test 2022-01-14 00:00:00 SHINGLES VACCINES (1 of 2) [code = SHINGLES VACCINES (1 of 2)] [facility] Future Scheduled Test 2022-01-14 00:00:00 Screening for malignant neoplasm of lung (procedure) [code = 588800713] [facility] Future Scheduled Test 2022-01-14 00:00:00 SHINGLES VACCINES (1 of 2) [code = SHINGLES VACCINES (1 of 2)] [facility] Future Scheduled Test 2022-01-14 00:00:00 Screening for malignant neoplasm of lung (procedure) [code = 669322257] [facility] Future Scheduled Test 2022-01-14 00:00:00 SHINGLES VACCINES (1 of 2) [code = SHINGLES VACCINES (1 of 2)] [facility] Future Scheduled Test 2022-01-14 00:00:00 Screening for malignant neoplasm of lung (procedure) [code = 551773462] [facility] Future Scheduled Test 2022-01-14 00:00:00 SHINGLES VACCINES (1 of 2) [code = SHINGLES VACCINES (1 of 2)] [facility] Future Scheduled Test 2022-01-14 00:00:00 Screening for malignant neoplasm of lung (procedure) [code = 270443553] [facility] Future Scheduled Test 2022-01-14 00:00:00 SHINGLES VACCINES (1 of 2) [code = SHINGLES VACCINES (1 of 2)] [facility] Future Scheduled Test 2022-01-14 00:00:00 Screening for malignant neoplasm of lung (procedure) [code = 299091505] [facility] Future Scheduled Test 2022-01-14 00:00:00 SHINGLES VACCINES (1 of 2) [code = SHINGLES VACCINES (1 of 2)] [facility] Future Scheduled Test 2022-01-14 00:00:00 Screening for malignant neoplasm of lung (procedure) [code = [id number]] [facility] Future Scheduled Test 2022-01-14 00:00:00 SHINGLES VACCINES (1 of 2) [code = SHINGLES VACCINES (1 of 2)] [facility] Future Scheduled Test 2022-01-14 00:00:00 Screening for malignant neoplasm of lung (procedure) [code = 719669621] [facility] Future Scheduled Test 2022-01-14 00:00:00 SHINGLES VACCINES (1 of 2) [code = SHINGLES VACCINES (1 of 2)] [facility] Future Scheduled Test 2022-01-14 00:00:00 Screening for malignant neoplasm of lung (procedure) [code = 258909720] [facility] Future Scheduled Test 2022-01-14 00:00:00 SHINGLES VACCINES (1 of 2) [code = SHINGLES VACCINES (1 of 2)] [facility] Future Scheduled Test 2013-12-15 00:00:00 PNEUMOCOCCAL VACCINE 0-64 YRS (2 - PCV) [code = PNEUMOCOCCAL VACCINE 0-64 YRS (2 - PCV)] [facility] Future Scheduled Test 2013-12-15 00:00:00 PNEUMOCOCCAL VACCINE 0-64 YRS (2 - PCV) [code = PNEUMOCOCCAL VACCINE 0-64 YRS (2 - PCV)] [facility] Future Scheduled Test 2013-12-15 00:00:00 PNEUMOCOCCAL VACCINE 0-64 YRS (2 - PCV) [code = PNEUMOCOCCAL VACCINE 0-64 YRS (2 - PCV)] [facility] Future Scheduled Test 2013-12-15 00:00:00 PNEUMOCOCCAL VACCINE 0-64 YRS (2 - PCV) [code = PNEUMOCOCCAL VACCINE 0-64 YRS (2 - PCV)] [facility] Future Scheduled Test 2013-12-15 00:00:00 Pneumococcal Vaccine: 0-64 Years (2 - PCV) [code = Pneumococcal Vaccine: 0-64 Years (2 - PCV)] [facility] Future Scheduled Test 2013-12-15 00:00:00 Pneumococcal Vaccine: 0-64 Years (2 - PCV) [code = Pneumococcal Vaccine: 0-64 Years (2 - PCV)] [facility] Future Scheduled Test 2013-12-15 00:00:00 Pneumococcal Vaccine: 0-64 Years (2 - PCV) [code = Pneumococcal Vaccine: 0-64 Years (2 - PCV)] [facility] Future Scheduled Test 2013-12-15 00:00:00 Pneumococcal Vaccine: 0-64 Years (2 - PCV) [code = Pneumococcal Vaccine: 0-64 Years (2 - PCV)] [facility] Future Scheduled Test 2013-12-15 00:00:00 Pneumococcal Vaccine: 0-64 Years (2 - PCV) [code = Pneumococcal Vaccine: 0-64 Years (2 - PCV)] [facility] Future Scheduled Test 2013-12-15 00:00:00 Pneumococcal Vaccine: 0-64 Years (2 - PCV) [code = Pneumococcal Vaccine: 0-64 Years (2 - PCV)] [facility] Future Scheduled Test 2013-12-15 00:00:00 Pneumococcal Vaccine: 0-64 Years (2 - PCV) [code = Pneumococcal Vaccine: 0-64 Years (2 - PCV)] [facility] Future Scheduled Test 2013-12-15 00:00:00 Pneumococcal Vaccine: 0-64 Years (2 - PCV) [code = Pneumococcal Vaccine: 0-64 Years (2 - PCV)] [facility] Future Scheduled Test 2013-12-15 00:00:00 Pneumococcal Vaccine: 0-64 Years (2 - PCV) [code = Pneumococcal Vaccine: 0-64 Years (2 - PCV)] [facility] Future Scheduled Test 2013-12-15 00:00:00 Pneumococcal Vaccine: 0-64 Years (2 - PCV) [code = Pneumococcal Vaccine: 0-64 Years (2 - PCV)] [facility] Future Scheduled Test 2013-12-15 00:00:00 Pneumococcal Vaccine: 0-64 Years (2 - PCV) [code = Pneumococcal Vaccine: 0-64 Years (2 - PCV)] [facility] Future Scheduled Test 1993-01-14 00:00:00 Screening for malignant neoplasm of cervix (procedure) [code = [id number]] [facility] Future Scheduled Test 1993-01-14 00:00:00 Screening for malignant neoplasm of cervix (procedure) [code = 068695253] [facility] Future Scheduled Test 1993-01-14 00:00:00 Screening for malignant neoplasm of cervix (procedure) [code = [id number]] [facility] Future Scheduled Test 1993-01-14 00:00:00 Screening for malignant neoplasm of cervix (procedure) [code = 997664188] [facility] Future Scheduled Test 1993-01-14 00:00:00 Screening for malignant neoplasm of cervix (procedure) [code = 219503313] [facility] Future Scheduled Test 1993-01-14 00:00:00 Screening for malignant neoplasm of cervix (procedure) [code = 835178278] [facility] Future Scheduled Test 1993-01-14 00:00:00 Screening for malignant neoplasm of cervix (procedure) [code = 511145497] [facility] Future Scheduled Test 1993-01-14 00:00:00 Screening for malignant neoplasm of cervix (procedure) [code = 874850348] [facility] Future Scheduled Test 1993-01-14 00:00:00 Screening for malignant neoplasm of cervix (procedure) [code = 472742755] [facility] Future Scheduled Test 1993-01-14 00:00:00 Screening for malignant neoplasm of cervix (procedure) [code = 101258870] [facility] Future Scheduled Test 1993-01-14 00:00:00 Screening for malignant neoplasm of cervix (procedure) [code = 740112215] [facility] Future Scheduled Test 1993-01-14 00:00:00 Screening for malignant neoplasm of cervix (procedure) [code = 161103569] [facility] Future Scheduled Test 1993-01-14 00:00:00 Screening for malignant neoplasm of cervix (procedure) [code = 204505289] [facility] Future Scheduled Test 1993-01-14 00:00:00 Screening for malignant neoplasm of cervix (procedure) [code = 957780028] [facility] Future Scheduled Test 1993-01-14 00:00:00 Screening for malignant neoplasm of cervix (procedure) [code = 855878245] [facility] Future Scheduled Test 1993-01-14 00:00:00 Screening for malignant neoplasm of cervix (procedure) [code = 391338484] [facility] Future Scheduled Test 1993-01-14 00:00:00 Screening for malignant neoplasm of cervix (procedure) [code = [id number]] [facility] Future Scheduled Test 1993-01-14 00:00:00 Screening for malignant neoplasm of cervix (procedure) [code = 350929499] [facility] Future Scheduled Test 1993-01-14 00:00:00 Screening for malignant neoplasm of cervix (procedure) [code = 604833326] [facility] Future Scheduled Test 1993-01-14 00:00:00 Screening for malignant neoplasm of cervix (procedure) [code = 272356142] [facility] Future Scheduled Test 1993-01-14 00:00:00 Screening for malignant neoplasm of cervix (procedure) [code = 756383335] [facility] Future Scheduled Test 1993-01-14 00:00:00 Screening for malignant neoplasm of cervix (procedure) [code = 091724990] [facility] Future Scheduled Test 1993-01-14 00:00:00 Screening for malignant neoplasm of cervix (procedure) [code = 007185080] [facility] Future Scheduled Test 1993-01-14 00:00:00 Screening for malignant neoplasm of cervix (procedure) [code = 846855698] [facility] Future Scheduled Test 1993-01-14 00:00:00 Screening for malignant neoplasm of cervix (procedure) [code = 243895309] [facility] Future Scheduled Test 1993-01-14 00:00:00 Screening for malignant neoplasm of cervix (procedure) [code = [id number]] [facility] Future Scheduled Test 1993-01-14 00:00:00 Screening for malignant neoplasm of cervix (procedure) [code = 973522210] [facility] Future Scheduled Test 1993-01-14 00:00:00 Screening for malignant neoplasm of cervix (procedure) [code = 149948556] [facility] Future Scheduled Test 1993-01-14 00:00:00 Screening for malignant neoplasm of cervix (procedure) [code = 362467979] [facility] Future Scheduled Test 1993-01-14 00:00:00 Screening for malignant neoplasm of cervix (procedure) [code = 008149729] [facility] Future Scheduled Test 1993-01-14 00:00:00 Screening for malignant neoplasm of cervix (procedure) [code = 042862689] [facility] Future Scheduled Test 1993-01-14 00:00:00 Screening for malignant neoplasm of cervix (procedure) [code = 788875026] [facility] Future Scheduled Test 1993-01-14 00:00:00 Screening for malignant neoplasm of cervix (procedure) [code = 178001421] [facility] Future Scheduled Test 1993-01-14 00:00:00 Screening for malignant neoplasm of cervix (procedure) [code = 749241664] [facility] Future Scheduled Test 1993-01-14 00:00:00 Screening for malignant neoplasm of cervix (procedure) [code = 489784082] [facility] Future Scheduled Test 1993-01-14 00:00:00 Screening for malignant neoplasm of cervix (procedure) [code = 328366848] [facility] Future Scheduled Test 1993-01-14 00:00:00 Screening for malignant neoplasm of cervix (procedure) [code = 962448694] [facility] Future Scheduled Test 1993-01-14 00:00:00 Screening for malignant neoplasm of cervix (procedure) [code = 487244662] [facility] Future Scheduled Test 1993-01-14 00:00:00 Screening for malignant neoplasm of cervix (procedure) [code = 183083170] [facility] Future Scheduled Test 1991-01-14 00:00:00 DTAP/TDAP/TD VACCINES (1 - Tdap) [code = DTAP/TDAP/TD VACCINES (1 - Tdap)] [facility] Future Scheduled Test 1991-01-14 00:00:00 DTAP/TDAP/TD VACCINES (1 - Tdap) [code = DTAP/TDAP/TD VACCINES (1 - Tdap)] [facility] Future Scheduled Test 1991-01-14 00:00:00 DTAP/TDAP/TD VACCINES (1 - Tdap) [code = DTAP/TDAP/TD VACCINES (1 - Tdap)] [facility] Future Scheduled Test 1991-01-14 00:00:00 DTAP/TDAP/TD VACCINES (1 - Tdap) [code = DTAP/TDAP/TD VACCINES (1 - Tdap)] [facility] Future Scheduled Test 1991-01-14 00:00:00 DTAP/TDAP/TD VACCINES (1 - Tdap) [code = DTAP/TDAP/TD VACCINES (1 - Tdap)] [facility] Future Scheduled Test 1991-01-14 00:00:00 DTAP/TDAP/TD VACCINES (1 - Tdap) [code = DTAP/TDAP/TD VACCINES (1 - Tdap)] [facility] Future Scheduled Test 1991-01-14 00:00:00 DTAP/TDAP/TD VACCINES (1 - Tdap) [code = DTAP/TDAP/TD VACCINES (1 - Tdap)] [facility] Future Scheduled Test 1991-01-14 00:00:00 DTAP/TDAP/TD VACCINES (1 - Tdap) [code = DTAP/TDAP/TD VACCINES (1 - Tdap)] [facility] Future Scheduled Test 1991-01-14 00:00:00 DTAP/TDAP/TD VACCINES (1 - Tdap) [code = DTAP/TDAP/TD VACCINES (1 - Tdap)] [facility] Future Scheduled Test 1991-01-14 00:00:00 DTAP/TDAP/TD VACCINES (1 - Tdap) [code = DTAP/TDAP/TD VACCINES (1 - Tdap)] [facility] Future Scheduled Test 1991-01-14 00:00:00 DTAP/TDAP/TD VACCINES (1 - Tdap) [code = DTAP/TDAP/TD VACCINES (1 - Tdap)] [facility] Future Scheduled Test 1991-01-14 00:00:00 DTAP/TDAP/TD VACCINES (1 - Tdap) [code = DTAP/TDAP/TD VACCINES (1 - Tdap)] [facility] Future Scheduled Test 1991-01-14 00:00:00 DTAP/TDAP/TD VACCINES (1 - Tdap) [code = DTAP/TDAP/TD VACCINES (1 - Tdap)] [facility] Future Scheduled Test 1991-01-14 00:00:00 DTAP/TDAP/TD VACCINES (1 - Tdap) [code = DTAP/TDAP/TD VACCINES (1 - Tdap)] [facility] Future Scheduled Test 1991-01-14 00:00:00 DTAP/TDAP/TD VACCINES (1 - Tdap) [code = DTAP/TDAP/TD VACCINES (1 - Tdap)] [facility] Future Scheduled Test 1991-01-14 00:00:00 DTAP/TDAP/TD VACCINES (1 - Tdap) [code = DTAP/TDAP/TD VACCINES (1 - Tdap)] [facility] Future Scheduled Test 1991-01-14 00:00:00 DTAP/TDAP/TD VACCINES (1 - Tdap) [code = DTAP/TDAP/TD VACCINES (1 - Tdap)] [facility] Future Scheduled Test 1991-01-14 00:00:00 DTAP/TDAP/TD VACCINES (1 - Tdap) [code = DTAP/TDAP/TD VACCINES (1 - Tdap)] [facility] Future Scheduled Test 1991-01-14 00:00:00 DTAP/TDAP/TD VACCINES (1 - Tdap) [code = DTAP/TDAP/TD VACCINES (1 - Tdap)] [facility] Future Scheduled Test 1991-01-14 00:00:00 DTAP/TDAP/TD VACCINES (1 - Tdap) [code = DTAP/TDAP/TD VACCINES (1 - Tdap)] [facility] Future Scheduled Test 1991-01-14 00:00:00 DTAP/TDAP/TD VACCINES (1 - Tdap) [code = DTAP/TDAP/TD VACCINES (1 - Tdap)] [facility] Future Scheduled Test 1991-01-14 00:00:00 DTAP/TDAP/TD VACCINES (1 - Tdap) [code = DTAP/TDAP/TD VACCINES (1 - Tdap)] [facility] Future Scheduled Test 1991-01-14 00:00:00 DTAP/TDAP/TD VACCINES (1 - Tdap) [code = DTAP/TDAP/TD VACCINES (1 - Tdap)] [facility] Future Scheduled Test 1991-01-14 00:00:00 DTAP/TDAP/TD VACCINES (1 - Tdap) [code = DTAP/TDAP/TD VACCINES (1 - Tdap)] [facility] Future Scheduled Test 1991-01-14 00:00:00 DTAP/TDAP/TD VACCINES (1 - Tdap) [code = DTAP/TDAP/TD VACCINES (1 - Tdap)] [facility] Future Scheduled Test 1991-01-14 00:00:00 DTAP/TDAP/TD VACCINES (1 - Tdap) [code = DTAP/TDAP/TD VACCINES (1 - Tdap)] [facility] Future Scheduled Test 1991-01-14 00:00:00 DTAP/TDAP/TD VACCINES (1 - Tdap) [code = DTAP/TDAP/TD VACCINES (1 - Tdap)] [facility] Future Scheduled Test 1991-01-14 00:00:00 DTAP/TDAP/TD VACCINES (1 - Tdap) [code = DTAP/TDAP/TD VACCINES (1 - Tdap)] [facility] Future Scheduled Test 1991-01-14 00:00:00 DTAP/TDAP/TD VACCINES (1 - Tdap) [code = DTAP/TDAP/TD VACCINES (1 - Tdap)] [facility] Future Scheduled Test 1991-01-14 00:00:00 DTAP/TDAP/TD VACCINES (1 - Tdap) [code = DTAP/TDAP/TD VACCINES (1 - Tdap)] [facility] Future Scheduled Test 1991-01-14 00:00:00 DTAP/TDAP/TD VACCINES (1 - Tdap) [code = DTAP/TDAP/TD VACCINES (1 - Tdap)] [facility] Future Scheduled Test 1991-01-14 00:00:00 DTAP/TDAP/TD VACCINES (1 - Tdap) [code = DTAP/TDAP/TD VACCINES (1 - Tdap)] [facility] Future Scheduled Test 1991-01-14 00:00:00 DTAP/TDAP/TD VACCINES (1 - Tdap) [code = DTAP/TDAP/TD VACCINES (1 - Tdap)] [facility] Future Scheduled Test 1991-01-14 00:00:00 DTAP/TDAP/TD VACCINES (1 - Tdap) [code = DTAP/TDAP/TD VACCINES (1 - Tdap)] [facility] Future Scheduled Test 1991-01-14 00:00:00 DTAP/TDAP/TD VACCINES (1 - Tdap) [code = DTAP/TDAP/TD VACCINES (1 - Tdap)] [facility] Future Scheduled Test 1991-01-14 00:00:00 DTAP/TDAP/TD VACCINES (1 - Tdap) [code = DTAP/TDAP/TD VACCINES (1 - Tdap)] [facility] Future Scheduled Test 1991-01-14 00:00:00 DTAP/TDAP/TD VACCINES (1 - Tdap) [code = DTAP/TDAP/TD VACCINES (1 - Tdap)] [facility] Future Scheduled Test 1991-01-14 00:00:00 DTAP/TDAP/TD VACCINES (1 - Tdap) [code = DTAP/TDAP/TD VACCINES (1 - Tdap)] [facility] Future Scheduled Test 1991-01-14 00:00:00 DTAP/TDAP/TD VACCINES (1 - Tdap) [code = DTAP/TDAP/TD VACCINES (1 - Tdap)] [facility] Future Scheduled Test 1990-01-14 00:00:00 HEPATITIS C SCREENING [code = HEPATITIS C SCREENING] [facility] Future Scheduled Test 1990-01-14 00:00:00 HEPATITIS C SCREENING [code = HEPATITIS C SCREENING] [facility] Future Scheduled Test 1990-01-14 00:00:00 HEPATITIS C SCREENING [code = HEPATITIS C SCREENING] [facility] Future Scheduled Test 1990-01-14 00:00:00 HEPATITIS C SCREENING [code = HEPATITIS C SCREENING] [facility] Future Scheduled Test 1990-01-14 00:00:00 HEPATITIS C SCREENING [code = HEPATITIS C SCREENING] [facility] Future Scheduled Test 1990-01-14 00:00:00 HEPATITIS C SCREENING [code = HEPATITIS C SCREENING] [facility] Future Scheduled Test 1990-01-14 00:00:00 HEPATITIS C SCREENING [code = HEPATITIS C SCREENING] [facility] Future Scheduled Test 1990-01-14 00:00:00 HEPATITIS C SCREENING [code = HEPATITIS C SCREENING] [facility] Future Scheduled Test 1990-01-14 00:00:00 HEPATITIS C SCREENING [code = HEPATITIS C SCREENING] [facility] Future Scheduled Test 1990-01-14 00:00:00 HEPATITIS C SCREENING [code = HEPATITIS C SCREENING] [facility] Future Scheduled Test 1990-01-14 00:00:00 HEPATITIS C SCREENING [code = HEPATITIS C SCREENING] [facility] Future Scheduled Test 1990-01-14 00:00:00 HEPATITIS C SCREENING [code = HEPATITIS C SCREENING] [facility] Future Scheduled Test 1990-01-14 00:00:00 HEPATITIS C SCREENING [code = HEPATITIS C SCREENING] [facility] Future Scheduled Test 1990-01-14 00:00:00 HEPATITIS C SCREENING [code = HEPATITIS C SCREENING] [facility] Future Scheduled Test 1990-01-14 00:00:00 HEPATITIS C SCREENING [code = HEPATITIS C SCREENING] [facility] Future Scheduled Test 1990-01-14 00:00:00 HEPATITIS C SCREENING [code = HEPATITIS C SCREENING] [facility] Future Scheduled Test 1990-01-14 00:00:00 HEPATITIS C SCREENING [code = HEPATITIS C SCREENING] [facility] Future Scheduled Test 1990-01-14 00:00:00 HEPATITIS C SCREENING [code = HEPATITIS C SCREENING] [facility] Future Scheduled Test 1990-01-14 00:00:00 HEPATITIS C SCREENING [code = HEPATITIS C SCREENING] [facility] Future Scheduled Test 1990-01-14 00:00:00 HEPATITIS C SCREENING [code = HEPATITIS C SCREENING] [facility] Future Scheduled Test 1990-01-14 00:00:00 HEPATITIS C SCREENING [code = HEPATITIS C SCREENING] [facility] Future Scheduled Test 1990-01-14 00:00:00 HEPATITIS C SCREENING [code = HEPATITIS C SCREENING] [facility] Future Scheduled Test 1990-01-14 00:00:00 HEPATITIS C SCREENING [code = HEPATITIS C SCREENING] [facility] Future Scheduled Test 1990-01-14 00:00:00 HEPATITIS C SCREENING [code = HEPATITIS C SCREENING] [facility] Future Scheduled Test 1990-01-14 00:00:00 HEPATITIS C SCREENING [code = HEPATITIS C SCREENING] [facility] Future Scheduled Test 1990-01-14 00:00:00 HEPATITIS C SCREENING [code = HEPATITIS C SCREENING] [facility] Future Scheduled Test 1990-01-14 00:00:00 HEPATITIS C SCREENING [code = HEPATITIS C SCREENING] [facility] Future Scheduled Test 1990-01-14 00:00:00 HEPATITIS C SCREENING [code = HEPATITIS C SCREENING] [facility] Future Scheduled Test 1990-01-14 00:00:00 HEPATITIS C SCREENING [code = HEPATITIS C SCREENING] [facility] Future Scheduled Test 1990-01-14 00:00:00 HEPATITIS C SCREENING [code = HEPATITIS C SCREENING] [facility] Future Scheduled Test 1990-01-14 00:00:00 HEPATITIS C SCREENING [code = HEPATITIS C SCREENING] [facility] Future Scheduled Test 1990-01-14 00:00:00 HEPATITIS C SCREENING [code = HEPATITIS C SCREENING] [facility] Future Scheduled Test 1990-01-14 00:00:00 HEPATITIS C SCREENING [code = HEPATITIS C SCREENING] [facility] Future Scheduled Test 1990-01-14 00:00:00 HEPATITIS C SCREENING [code = HEPATITIS C SCREENING] [facility] Future Scheduled Test 1990-01-14 00:00:00 HEPATITIS C SCREENING [code = HEPATITIS C SCREENING] [facility] Future Scheduled Test 1990-01-14 00:00:00 HEPATITIS C SCREENING [code = HEPATITIS C SCREENING] [facility] Future Scheduled Test 1990-01-14 00:00:00 HEPATITIS C SCREENING [code = HEPATITIS C SCREENING] [facility] Future Scheduled Test 1990-01-14 00:00:00 HEPATITIS C SCREENING [code = HEPATITIS C SCREENING] [facility] Future Scheduled Test 1990-01-14 00:00:00 HEPATITIS C SCREENING [code = HEPATITIS C SCREENING] [facility] Future Scheduled Test 1987-01-14 00:00:00 Human immunodeficiency virus screening (procedure) [code = [id number]] [facility] Future Scheduled Test 1987-01-14 00:00:00 Human immunodeficiency virus screening (procedure) [code = [id number]] [facility] Future Scheduled Test 1984 00:00:00 Tobacco Cessation Counseling and Screening (12+) [code = Tobacco Cessation Counseling and Screening (12+)] [facility] Future Scheduled Test 1984 00:00:00 Tobacco Cessation Counseling and Screening (12+) [code = Tobacco Cessation Counseling and Screening (12+)] [facility] Future Scheduled Test 1984 00:00:00 Tobacco Cessation Counseling and Screening (12+) [code = Tobacco Cessation Counseling and Screening (12+)] [facility] Future Scheduled Test 1984 00:00:00 Tobacco Cessation Counseling and Screening (12+) [code = Tobacco Cessation Counseling and Screening (12+)] [facility] Future Scheduled Test 1984 00:00:00 Tobacco Cessation Counseling and Screening (12+) [code = Tobacco Cessation Counseling and Screening (12+)] [facility] Future Scheduled Test 1984 00:00:00 Tobacco Cessation Counseling and Screening (12+) [code = Tobacco Cessation Counseling and Screening (12+)] [facility] Future Scheduled Test 1984 00:00:00 Tobacco Cessation Counseling and Screening (12+) [code = Tobacco Cessation Counseling and Screening (12+)] [facility] Future Scheduled Test 1984 00:00:00 Tobacco Cessation Counseling and Screening (12+) [code = Tobacco Cessation Counseling and Screening (12+)] [facility] Future Scheduled Test 1984 00:00:00 Tobacco Cessation Counseling and Screening (12+) [code = Tobacco Cessation Counseling and Screening (12+)] [facility] Future Scheduled Test 1984 00:00:00 Tobacco Cessation Counseling and Screening (12+) [code = Tobacco Cessation Counseling and Screening (12+)] [facility] Future Scheduled Test 1984 00:00:00 Tobacco Cessation Counseling and Screening (12+) [code = Tobacco Cessation Counseling and Screening (12+)] [facility] Future Scheduled Test 1984 00:00:00 Tobacco Cessation Counseling and Screening (12+) [code = Tobacco Cessation Counseling and Screening (12+)] [facility] Scheduled Test 1984 00:00:00 Tobacco Cessation Counseling and Screening (12+) [code = Tobacco Cessation Counseling and Screening (12+)] [facility] Scheduled Test 1984 00:00:00 Tobacco Cessation Counseling and Screening (12+) [code = Tobacco Cessation Counseling and Screening (12+)] [facility] Scheduled Test 1984 00:00:00 Tobacco Cessation Counseling and Screening (12+) [code = Tobacco Cessation Counseling and Screening (12+)] [facility] Scheduled Test 1984 00:00:00 Tobacco Cessation Counseling and Screening (12+) [code = Tobacco Cessation Counseling and Screening (12+)] [facility] Future Scheduled Test 1984 00:00:00 Tobacco Cessation Counseling and Screening (12+) [code = Tobacco Cessation Counseling and Screening (12+)] [facility] Future Scheduled Test 1984 00:00:00 Tobacco Cessation Counseling and Screening (12+) [code = Tobacco Cessation Counseling and Screening (12+)] [facility] Future Scheduled Test 1984 00:00:00 Tobacco Cessation Counseling and Screening (12+) [code = Tobacco Cessation Counseling and Screening (12+)] [facility] Future Scheduled Test 1984 00:00:00 Tobacco Cessation Counseling and Screening (12+) [code = Tobacco Cessation Counseling and Screening (12+)] [facility] Future Scheduled Test 1984 00:00:00 Tobacco Cessation Counseling and Screening (12+) [code = Tobacco Cessation Counseling and Screening (12+)] [facility] Future Scheduled Test 1984 00:00:00 Tobacco Cessation Counseling and Screening (12+) [code = Tobacco Cessation Counseling and Screening (12+)] [facility] Future Scheduled Test 1984 00:00:00 Tobacco Cessation Counseling and Screening (12+) [code = Tobacco Cessation Counseling and Screening (12+)] [facility] Future Scheduled Test 1972 00:00:00 Screening for malignant neoplasm of breast (procedure) [code = [id number]] [facility] Future Scheduled Test 1972 00:00:00 CT Colonography (combo) [code = CT Colonography (combo)] [facility] Future Scheduled Test 1972 00:00:00 Screening for malignant neoplasm of colon (procedure) [code = 386749270] [facility] Future Scheduled Test 1972 00:00:00 Screening for malignant neoplasm of colon (procedure) [code = 920615922] [facility] Future Scheduled Test 1972 00:00:00 Screening for malignant neoplasm of colon (procedure) [code = 558995196] [facility] Future Scheduled Test 1972 00:00:00 Screening for malignant neoplasm of colon (procedure) [code = 952839557] [facility] Future Scheduled Test 1972 00:00:00 Sigmoidoscopy [code = Sigmoidoscopy] [facility] Future Scheduled Test 1972 00:00:00 Screening for malignant neoplasm of breast (procedure) [code = 356945004] [facility] Future Scheduled Test 1972 00:00:00 CT Colonography (combo) [code = CT Colonography (combo)] [facility] Future Scheduled Test 1972 00:00:00 Screening for malignant neoplasm of colon (procedure) [code = 248652735] [facility] Future Scheduled Test 1972 00:00:00 Screening for malignant neoplasm of colon (procedure) [code = 126481817] [facility] Future Scheduled Test 1972 00:00:00 Screening for malignant neoplasm of colon (procedure) [code = 111740119] [facility] Future Scheduled Test 1972 00:00:00 Screening for malignant neoplasm of colon (procedure) [code = 032934041] [facility] Future Scheduled Test 1972 00:00:00 Sigmoidoscopy [code = Sigmoidoscopy] [facility] Future Scheduled Test 1972 00:00:00 Screening for malignant neoplasm of breast (procedure) [code = 081961943] [facility] Future Scheduled Test 1972 00:00:00 CT Colonography (combo) [code = CT Colonography (combo)] [facility] Future Scheduled Test 1972 00:00:00 Screening for malignant neoplasm of colon (procedure) [code = 301013195] [facility] Future Scheduled Test 1972 00:00:00 Screening for malignant neoplasm of colon (procedure) [code = 651774632] [facility] Future Scheduled Test 1972 00:00:00 Screening for malignant neoplasm of colon (procedure) [code = 643520666] [facility] Future Scheduled Test 1972 00:00:00 Screening for malignant neoplasm of colon (procedure) [code = 678398876] [facility] Future Scheduled Test 1972 00:00:00 Sigmoidoscopy [code = Sigmoidoscopy] [facility] Future Scheduled Test 1972 00:00:00 Screening for malignant neoplasm of breast (procedure) [code = 480724656] [facility] Future Scheduled Test 1972 00:00:00 CT Colonography (combo) [code = CT Colonography (combo)] [facility] Future Scheduled Test 1972 00:00:00 Screening for malignant neoplasm of colon (procedure) [code = 871620595] [facility] Future Scheduled Test 1972 00:00:00 Screening for malignant neoplasm of colon (procedure) [code = 754172337] [facility] Future Scheduled Test 1972 00:00:00 Screening for malignant neoplasm of colon (procedure) [code = 392018124] [facility] Future Scheduled Test 1972 00:00:00 Screening for malignant neoplasm of colon (procedure) [code = 147732567] [facility] Future Scheduled Test 1972 00:00:00 Sigmoidoscopy [code = Sigmoidoscopy] [facility] Future Scheduled Test 1972 00:00:00 Screening for malignant neoplasm of breast (procedure) [code = 860881398] [facility] Future Scheduled Test 1972 00:00:00 CT Colonography (combo) [code = CT Colonography (combo)] [facility] Future Scheduled Test 1972 00:00:00 Screening for malignant neoplasm of colon (procedure) [code = 513962401] [facility] Future Scheduled Test 1972 00:00:00 Screening for malignant neoplasm of colon (procedure) [code = 097057967] [facility] Future Scheduled Test 1972 00:00:00 Screening for malignant neoplasm of colon (procedure) [code = 945342287] [facility] Future Scheduled Test 1972 00:00:00 Screening for malignant neoplasm of colon (procedure) [code = 838932751] [facility] Future Scheduled Test 1972 00:00:00 Sigmoidoscopy [code = Sigmoidoscopy] [facility] Future Scheduled Test 1972 00:00:00 Screening for malignant neoplasm of breast (procedure) [code = 438820807] [facility] Future Scheduled Test 1972 00:00:00 CT Colonography (combo) [code = CT Colonography (combo)] [facility] Future Scheduled Test 1972 00:00:00 Screening for malignant neoplasm of colon (procedure) [code = 108091746] [facility] Future Scheduled Test 1972 00:00:00 Screening for malignant neoplasm of colon (procedure) [code = 791700050] [facility] Future Scheduled Test 1972 00:00:00 Screening for malignant neoplasm of colon (procedure) [code = 549063524] [facility] Future Scheduled Test 1972 00:00:00 Screening for malignant neoplasm of colon (procedure) [code = 142353375] [facility] Future Scheduled Test 1972 00:00:00 Sigmoidoscopy [code = Sigmoidoscopy] [facility] Future Scheduled Test 1972 00:00:00 Screening for malignant neoplasm of breast (procedure) [code = 462686747] [facility] Future Scheduled Test 1972 00:00:00 CT Colonography (combo) [code = CT Colonography (combo)] [facility] Future Scheduled Test 1972 00:00:00 Screening for malignant neoplasm of colon (procedure) [code = 623175902] [facility] Future Scheduled Test 1972 00:00:00 Screening for malignant neoplasm of colon (procedure) [code = 148579261] [facility] Future Scheduled Test 1972 00:00:00 Screening for malignant neoplasm of colon (procedure) [code = 473112261] [facility] Future Scheduled Test 1972 00:00:00 Screening for malignant neoplasm of colon (procedure) [code = 320292427] [facility] Future Scheduled Test 1972 00:00:00 Sigmoidoscopy [code = Sigmoidoscopy] [facility] Future Scheduled Test 1972 00:00:00 Screening for malignant neoplasm of breast (procedure) [code = 507829495] [facility] Future Scheduled Test 1972 00:00:00 CT Colonography (combo) [code = CT Colonography (combo)] [facility] Future Scheduled Test 1972 00:00:00 Screening for malignant neoplasm of colon (procedure) [code = 531604756] [facility] Future Scheduled Test 1972 00:00:00 Screening for malignant neoplasm of colon (procedure) [code = 114423623] [facility] Future Scheduled Test 1972 00:00:00 Screening for malignant neoplasm of colon (procedure) [code = 294669291] [facility] Future Scheduled Test 1972 00:00:00 Screening for malignant neoplasm of colon (procedure) [code = 686519979] [facility] Future Scheduled Test 1972 00:00:00 Sigmoidoscopy [code = Sigmoidoscopy] [facility] Future Scheduled Test 1972 00:00:00 Screening for malignant neoplasm of breast (procedure) [code = 794816400] [facility] Future Scheduled Test 1972 00:00:00 CT Colonography (combo) [code = CT Colonography (combo)] [facility] Future Scheduled Test 1972 00:00:00 Screening for malignant neoplasm of colon (procedure) [code = 142720863] [facility] Future Scheduled Test 1972 00:00:00 Screening for malignant neoplasm of colon (procedure) [code = 114456853] [facility] Future Scheduled Test 1972 00:00:00 Screening for malignant neoplasm of colon (procedure) [code = 100404610] [facility] Future Scheduled Test 1972 00:00:00 Screening for malignant neoplasm of colon (procedure) [code = 300478415] [facility] Future Scheduled Test 1972 00:00:00 Sigmoidoscopy [code = Sigmoidoscopy] [facility] Future Scheduled Test 1972 00:00:00 Screening for malignant neoplasm of breast (procedure) [code = 776342174] [facility] Future Scheduled Test 1972 00:00:00 CT Colonography (combo) [code = CT Colonography (combo)] [facility] Future Scheduled Test 1972 00:00:00 Screening for malignant neoplasm of colon (procedure) [code = 438137426] [facility] Future Scheduled Test 1972 00:00:00 Screening for malignant neoplasm of colon (procedure) [code = 228720374] [facility] Future Scheduled Test 1972 00:00:00 Screening for malignant neoplasm of colon (procedure) [code = 187529347] [facility] Future Scheduled Test 1972 00:00:00 Screening for malignant neoplasm of colon (procedure) [code = 322428260] [facility] Future Scheduled Test 1972 00:00:00 Sigmoidoscopy [code = Sigmoidoscopy] [facility] Future Scheduled Test 1972 00:00:00 Screening for malignant neoplasm of breast (procedure) [code = 172844211] [facility] Future Scheduled Test 1972 00:00:00 CT Colonography (combo) [code = CT Colonography (combo)] [facility] Future Scheduled Test 1972 00:00:00 Screening for malignant neoplasm of colon (procedure) [code = 062701753] [facility] Future Scheduled Test 1972 00:00:00 Screening for malignant neoplasm of colon (procedure) [code = 086078271] [facility] Future Scheduled Test 1972 00:00:00 Screening for malignant neoplasm of colon (procedure) [code = 229127604] [facility] Future Scheduled Test 1972 00:00:00 Screening for malignant neoplasm of colon (procedure) [code = 004251277] [facility] Future Scheduled Test 1972 00:00:00 Sigmoidoscopy [code = Sigmoidoscopy] [facility] Future Scheduled Test 1972 00:00:00 Screening for malignant neoplasm of breast (procedure) [code = 535735499] [facility] Future Scheduled Test 1972 00:00:00 CT Colonography (combo) [code = CT Colonography (combo)] [facility] Future Scheduled Test 1972 00:00:00 Screening for malignant neoplasm of colon (procedure) [code = 617233177] [facility] Future Scheduled Test 1972 00:00:00 Screening for malignant neoplasm of colon (procedure) [code = 994633864] [facility] Future Scheduled Test 1972 00:00:00 Screening for malignant neoplasm of colon (procedure) [code = 168829922] [facility] Future Scheduled Test 1972 00:00:00 Screening for malignant neoplasm of colon (procedure) [code = 716541478] [facility] Future Scheduled Test 1972 00:00:00 Sigmoidoscopy [code = Sigmoidoscopy] [facility] Future Scheduled Test 1972 00:00:00 Screening for malignant neoplasm of breast (procedure) [code = 998320526] [facility] Future Scheduled Test 1972 00:00:00 CT Colonography (combo) [code = CT Colonography (combo)] [facility] Future Scheduled Test 1972 00:00:00 Screening for malignant neoplasm of colon (procedure) [code = 448980869] [facility] Future Scheduled Test 1972 00:00:00 Screening for malignant neoplasm of colon (procedure) [code = 843896464] [facility] Future Scheduled Test 1972 00:00:00 Screening for malignant neoplasm of colon (procedure) [code = 718849378] [facility] Future Scheduled Test 1972 00:00:00 Screening for malignant neoplasm of colon (procedure) [code = 477307038] [facility] Future Scheduled Test 1972 00:00:00 Sigmoidoscopy [code = Sigmoidoscopy] [facility] Future Scheduled Test 1972 00:00:00 Screening for malignant neoplasm of breast (procedure) [code = 280369551] [facility] Future Scheduled Test 1972 00:00:00 CT Colonography (combo) [code = CT Colonography (combo)] [facility] Future Scheduled Test 1972 00:00:00 Screening for malignant neoplasm of colon (procedure) [code = 915688020] [facility] Future Scheduled Test 1972 00:00:00 Screening for malignant neoplasm of colon (procedure) [code = 450107206] [facility] Future Scheduled Test 1972 00:00:00 Screening for malignant neoplasm of colon (procedure) [code = 739997980] [facility] Future Scheduled Test 1972 00:00:00 Screening for malignant neoplasm of colon (procedure) [code = 965236580] [facility] Future Scheduled Test 1972 00:00:00 Sigmoidoscopy [code = Sigmoidoscopy] [facility] Future Scheduled Test 1972 00:00:00 Screening for malignant neoplasm of breast (procedure) [code = 483021425] [facility] Future Scheduled Test 1972 00:00:00 CT Colonography (combo) [code = CT Colonography (combo)] [facility] Future Scheduled Test 1972 00:00:00 Screening for malignant neoplasm of colon (procedure) [code = 021119278] [facility] Future Scheduled Test 1972 00:00:00 Screening for malignant neoplasm of colon (procedure) [code = [id number]] [facility] Future Scheduled Test 1972 00:00:00 Screening for malignant neoplasm of colon (procedure) [code = 147627388] [facility] Future Scheduled Test 1972 00:00:00 Screening for malignant neoplasm of colon (procedure) [code = 455651587] [facility] Future Scheduled Test 1972 00:00:00 Sigmoidoscopy [code = Sigmoidoscopy] [facility] Future Scheduled Test 1972 00:00:00 Screening for malignant neoplasm of breast (procedure) [code = 183733011] [facility] Future Scheduled Test 1972 00:00:00 CT Colonography (combo) [code = CT Colonography (combo)] [facility] Future Scheduled Test 1972 00:00:00 Screening for malignant neoplasm of colon (procedure) [code = 773734637] [facility] Future Scheduled Test 1972 00:00:00 Screening for malignant neoplasm of colon (procedure) [code = 120988348] [facility] Future Scheduled Test 1972 00:00:00 Screening for malignant neoplasm of colon (procedure) [code = 568718109] [facility] Future Scheduled Test 1972 00:00:00 Screening for malignant neoplasm of colon (procedure) [code = 842262697] [facility] Future Scheduled Test 1972 00:00:00 Sigmoidoscopy [code = Sigmoidoscopy] [facility] Future Scheduled Test 1972 00:00:00 Screening for malignant neoplasm of breast (procedure) [code = 746798380] [facility] Future Scheduled Test 1972 00:00:00 CT Colonography (combo) [code = CT Colonography (combo)] [facility] Future Scheduled Test 1972 00:00:00 Screening for malignant neoplasm of colon (procedure) [code = 427753603] [facility] Future Scheduled Test 1972 00:00:00 Screening for malignant neoplasm of colon (procedure) [code = 781689300] [facility] Future Scheduled Test 1972 00:00:00 Screening for malignant neoplasm of colon (procedure) [code = 383204495] [facility] Future Scheduled Test 1972 00:00:00 Screening for malignant neoplasm of colon (procedure) [code = 234560864] [facility] Future Scheduled Test 1972 00:00:00 Sigmoidoscopy [code = Sigmoidoscopy] [facility] Future Scheduled Test 1972 00:00:00 Screening for malignant neoplasm of breast (procedure) [code = 110123028] [facility] Future Scheduled Test 1972 00:00:00 CT Colonography (combo) [code = CT Colonography (combo)] [facility] Future Scheduled Test 1972 00:00:00 Screening for malignant neoplasm of breast (procedure) [code = 256878793] [facility] Future Scheduled Test 1972 00:00:00 CT Colonography (combo) [code = CT Colonography (combo)] [facility] Future Scheduled Test 1972 00:00:00 Screening for malignant neoplasm of colon (procedure) [code = 636474756] [facility] Future Scheduled Test 1972 00:00:00 Screening for malignant neoplasm of colon (procedure) [code = 643373008] [facility] Future Scheduled Test 1972 00:00:00 Screening for malignant neoplasm of colon (procedure) [code = 595768300] [facility] Future Scheduled Test 1972 00:00:00 Screening for malignant neoplasm of colon (procedure) [code = 513407999] [facility] Future Scheduled Test 1972 00:00:00 Sigmoidoscopy [code = Sigmoidoscopy] [facility] Future Scheduled Test 1972 00:00:00 Screening for malignant neoplasm of colon (procedure) [code = 480263819] [facility] Future Scheduled Test 1972 00:00:00 Screening for malignant neoplasm of colon (procedure) [code = 207796921] [facility] Future Scheduled Test 1972 00:00:00 Screening for malignant neoplasm of colon (procedure) [code = 574552935] [facility] Future Scheduled Test 1972 00:00:00 Screening for malignant neoplasm of colon (procedure) [code = 338023232] [facility] Future Scheduled Test 1972 00:00:00 Sigmoidoscopy [code = Sigmoidoscopy] [facility] Future Scheduled Test 1972 00:00:00 Screening for malignant neoplasm of breast (procedure) [code = 797758290] [facility] Future Scheduled Test 1972 00:00:00 CT Colonography (combo) [code = CT Colonography (combo)] [facility] Future Scheduled Test 1972 00:00:00 Screening for malignant neoplasm of colon (procedure) [code = 920971783] [facility] Future Scheduled Test 1972 00:00:00 Screening for malignant neoplasm of colon (procedure) [code = 589391676] [facility] Future Scheduled Test 1972 00:00:00 Screening for malignant neoplasm of colon (procedure) [code = 370799294] [facility] Future Scheduled Test 1972 00:00:00 Screening for malignant neoplasm of colon (procedure) [code = 874075984] [facility] Future Scheduled Test 1972 00:00:00 Sigmoidoscopy [code = Sigmoidoscopy] [facility] Future Scheduled Test 1972 00:00:00 Screening for malignant neoplasm of breast (procedure) [code = 200457525] [facility] Future Scheduled Test 1972 00:00:00 CT Colonography (combo) [code = CT Colonography (combo)] [facility] Future Scheduled Test 1972 00:00:00 Screening for malignant neoplasm of colon (procedure) [code = 678488931] [facility] Future Scheduled Test 1972 00:00:00 Screening for malignant neoplasm of colon (procedure) [code = 893069072] [facility] Future Scheduled Test 1972 00:00:00 Screening for malignant neoplasm of colon (procedure) [code = 679155132] [facility] Future Scheduled Test 1972 00:00:00 Screening for malignant neoplasm of colon (procedure) [code = 435594065] [facility] Future Scheduled Test 1972 00:00:00 Sigmoidoscopy [code = Sigmoidoscopy] [facility] Future Scheduled Test 1972 00:00:00 Screening for malignant neoplasm of breast (procedure) [code = 939653670] [facility] Future Scheduled Test 1972 00:00:00 CT Colonography (combo) [code = CT Colonography (combo)] [facility] Future Scheduled Test 1972 00:00:00 Screening for malignant neoplasm of colon (procedure) [code = 254756427] [facility] Future Scheduled Test 1972 00:00:00 Screening for malignant neoplasm of colon (procedure) [code = 831423564] [facility] Future Scheduled Test 1972 00:00:00 Screening for malignant neoplasm of colon (procedure) [code = 989372824] [facility] Future Scheduled Test 1972 00:00:00 Screening for malignant neoplasm of colon (procedure) [code = 173751086] [facility] Future Scheduled Test 1972 00:00:00 Sigmoidoscopy [code = Sigmoidoscopy] [facility] Future Scheduled Test 1972 00:00:00 Screening for malignant neoplasm of breast (procedure) [code = 857288166] [facility] Future Scheduled Test 1972 00:00:00 CT Colonography (combo) [code = CT Colonography (combo)] [facility] Future Scheduled Test 1972 00:00:00 Screening for malignant neoplasm of colon (procedure) [code = 445940643] [facility] Future Scheduled Test 1972 00:00:00 Screening for malignant neoplasm of colon (procedure) [code = 896276582] [facility] Future Scheduled Test 1972 00:00:00 Screening for malignant neoplasm of colon (procedure) [code = 701942806] [facility] Future Scheduled Test 1972 00:00:00 Screening for malignant neoplasm of colon (procedure) [code = 082012106] [facility] Future Scheduled Test 1972 00:00:00 Sigmoidoscopy [code = Sigmoidoscopy] [facility] Future Scheduled Test 1972 00:00:00 Screening for malignant neoplasm of breast (procedure) [code = 710366641] [facility] Future Scheduled Test 1972 00:00:00 CT Colonography (combo) [code = CT Colonography (combo)] [facility] Future Scheduled Test 1972 00:00:00 Screening for malignant neoplasm of colon (procedure) [code = 052513907] [facility] Future Scheduled Test 1972 00:00:00 Screening for malignant neoplasm of colon (procedure) [code = 781009883] [facility] Future Scheduled Test 1972 00:00:00 Screening for malignant neoplasm of colon (procedure) [code = 167444181] [facility] Future Scheduled Test 1972 00:00:00 Screening for malignant neoplasm of colon (procedure) [code = 861651178] [facility] Future Scheduled Test 1972 00:00:00 Sigmoidoscopy [code = Sigmoidoscopy] [facility] Future Scheduled Test 1972 00:00:00 Screening for malignant neoplasm of breast (procedure) [code = 693059474] [facility] Future Scheduled Test 1972 00:00:00 CT Colonography (combo) [code = CT Colonography (combo)] [facility] Future Scheduled Test 1972 00:00:00 Screening for malignant neoplasm of colon (procedure) [code = 214047038] [facility] Future Scheduled Test 1972 00:00:00 Screening for malignant neoplasm of colon (procedure) [code = 968650941] [facility] Future Scheduled Test 1972 00:00:00 Screening for malignant neoplasm of colon (procedure) [code = 137660306] [facility] Future Scheduled Test 1972 00:00:00 Screening for malignant neoplasm of colon (procedure) [code = 504938831] [facility] Future Scheduled Test 1972 00:00:00 Sigmoidoscopy [code = Sigmoidoscopy] [facility] Future Scheduled Test 1972 00:00:00 Screening for malignant neoplasm of breast (procedure) [code = 116737182] [facility] Future Scheduled Test 1972 00:00:00 CT Colonography (combo) [code = CT Colonography (combo)] [facility] Future Scheduled Test 1972 00:00:00 Screening for malignant neoplasm of colon (procedure) [code = 331485366] [facility] Future Scheduled Test 1972 00:00:00 Screening for malignant neoplasm of colon (procedure) [code = 103735335] [facility] Future Scheduled Test 1972 00:00:00 Screening for malignant neoplasm of colon (procedure) [code = 895298843] [facility] Future Scheduled Test 1972 00:00:00 Screening for malignant neoplasm of colon (procedure) [code = 912844600] [facility] Future Scheduled Test 1972 00:00:00 Sigmoidoscopy [code = Sigmoidoscopy] [facility] Future Scheduled Test 1972 00:00:00 Screening for malignant neoplasm of breast (procedure) [code = 771594382] [facility] Future Scheduled Test 1972 00:00:00 CT Colonography (combo) [code = CT Colonography (combo)] [facility] Future Scheduled Test 1972 00:00:00 Screening for malignant neoplasm of colon (procedure) [code = 751141920] [facility] Future Scheduled Test 1972 00:00:00 Screening for malignant neoplasm of colon (procedure) [code = 204337613] [facility] Future Scheduled Test 1972 00:00:00 Screening for malignant neoplasm of colon (procedure) [code = 894581787] [facility] Future Scheduled Test 1972 00:00:00 Screening for malignant neoplasm of colon (procedure) [code = 048829812] [facility] Future Scheduled Test 1972 00:00:00 Sigmoidoscopy [code = Sigmoidoscopy] [facility] Future Scheduled Test 1972 00:00:00 Screening for malignant neoplasm of breast (procedure) [code = 365673195] [facility] Future Scheduled Test 1972 00:00:00 CT Colonography (combo) [code = CT Colonography (combo)] [facility] Future Scheduled Test 1972 00:00:00 Screening for malignant neoplasm of colon (procedure) [code = 530503006] [facility] Future Scheduled Test 1972 00:00:00 Screening for malignant neoplasm of colon (procedure) [code = 618456699] [facility] Future Scheduled Test 1972 00:00:00 Screening for malignant neoplasm of colon (procedure) [code = 069245424] [facility] Future Scheduled Test 1972 00:00:00 Screening for malignant neoplasm of colon (procedure) [code = 491778970] [facility] Future Scheduled Test 1972 00:00:00 Sigmoidoscopy [code = Sigmoidoscopy] [facility] Future Scheduled Test 1972 00:00:00 Screening for malignant neoplasm of breast (procedure) [code = 324299537] [facility] Future Scheduled Test 1972 00:00:00 CT Colonography (combo) [code = CT Colonography (combo)] [facility] Future Scheduled Test 1972 00:00:00 Screening for malignant neoplasm of colon (procedure) [code = 776018418] [facility] Future Scheduled Test 1972 00:00:00 Screening for malignant neoplasm of colon (procedure) [code = 698011921] [facility] Future Scheduled Test 1972 00:00:00 Screening for malignant neoplasm of colon (procedure) [code = 388461406] [facility] Future Scheduled Test 1972 00:00:00 Screening for malignant neoplasm of colon (procedure) [code = 760250592] [facility] Future Scheduled Test 1972 00:00:00 Sigmoidoscopy [code = Sigmoidoscopy] [facility] Future Scheduled Test 1972 00:00:00 Screening for malignant neoplasm of breast (procedure) [code = 011508993] [facility] Future Scheduled Test 1972 00:00:00 CT Colonography (combo) [code = CT Colonography (combo)] [facility] Future Scheduled Test 1972 00:00:00 Screening for malignant neoplasm of colon (procedure) [code = 162075652] [facility] Future Scheduled Test 1972 00:00:00 Screening for malignant neoplasm of colon (procedure) [code = 090309910] [facility] Future Scheduled Test 1972 00:00:00 Screening for malignant neoplasm of colon (procedure) [code = 714363380] [facility] Future Scheduled Test 1972 00:00:00 Screening for malignant neoplasm of colon (procedure) [code = 146296718] [facility] Future Scheduled Test 1972 00:00:00 Sigmoidoscopy [code = Sigmoidoscopy] [facility] Future Scheduled Test 1972 00:00:00 Screening for malignant neoplasm of breast (procedure) [code = 733890055] [facility] Future Scheduled Test 1972 00:00:00 CT Colonography (combo) [code = CT Colonography (combo)] [facility] Future Scheduled Test 1972 00:00:00 Screening for malignant neoplasm of colon (procedure) [code = 770328977] [facility] Future Scheduled Test 1972 00:00:00 Screening for malignant neoplasm of colon (procedure) [code = 975533117] [facility] Future Scheduled Test 1972 00:00:00 Screening for malignant neoplasm of colon (procedure) [code = 015266558] [facility] Future Scheduled Test 1972 00:00:00 Screening for malignant neoplasm of colon (procedure) [code = 794475580] [facility] Future Scheduled Test 1972 00:00:00 Sigmoidoscopy [code = Sigmoidoscopy] [facility] Future Scheduled Test 1972 00:00:00 Screening for malignant neoplasm of breast (procedure) [code = 084888551] [facility] Future Scheduled Test 1972 00:00:00 CT Colonography (combo) [code = CT Colonography (combo)] [facility] Future Scheduled Test 1972 00:00:00 Screening for malignant neoplasm of colon (procedure) [code = 983408119] [facility] Future Scheduled Test 1972 00:00:00 Screening for malignant neoplasm of colon (procedure) [code = 053461220] [facility] Future Scheduled Test 1972 00:00:00 Screening for malignant neoplasm of colon (procedure) [code = 649185896] [facility] Future Scheduled Test 1972 00:00:00 Screening for malignant neoplasm of colon (procedure) [code = 287368424] [facility] Future Scheduled Test 1972 00:00:00 Sigmoidoscopy [code = Sigmoidoscopy] [facility] Future Scheduled Test 1972 00:00:00 Screening for malignant neoplasm of breast (procedure) [code = 629842906] [facility] Future Scheduled Test 1972 00:00:00 CT Colonography (combo) [code = CT Colonography (combo)] [facility] Future Scheduled Test 1972 00:00:00 Screening for malignant neoplasm of colon (procedure) [code = 292442002] [facility] Future Scheduled Test 1972 00:00:00 Screening for malignant neoplasm of colon (procedure) [code = 809648246] [facility] Future Scheduled Test 1972 00:00:00 Screening for malignant neoplasm of colon (procedure) [code = 515318895] [facility] Future Scheduled Test 1972 00:00:00 Screening for malignant neoplasm of colon (procedure) [code = 328439349] [facility] Future Scheduled Test 1972 00:00:00 Sigmoidoscopy [code = Sigmoidoscopy] [facility] Future Scheduled Test 1972 00:00:00 Screening for malignant neoplasm of breast (procedure) [code = 200866584] [facility] Future Scheduled Test 1972 00:00:00 CT Colonography (combo) [code = CT Colonography (combo)] [facility] Future Scheduled Test 1972 00:00:00 Screening for malignant neoplasm of colon (procedure) [code = 161885029] [facility] Future Scheduled Test 1972 00:00:00 Screening for malignant neoplasm of colon (procedure) [code = 411405752] [facility] Future Scheduled Test 1972 00:00:00 Screening for malignant neoplasm of colon (procedure) [code = 049236014] [facility] Future Scheduled Test 1972 00:00:00 Screening for malignant neoplasm of colon (procedure) [code = 453566652] [facility] Future Scheduled Test 1972 00:00:00 Sigmoidoscopy [code = Sigmoidoscopy] [facility] Future Scheduled Test 1972 00:00:00 Screening for malignant neoplasm of breast (procedure) [code = 957343562] [facility] Future Scheduled Test 1972 00:00:00 CT Colonography (combo) [code = CT Colonography (combo)] [facility] Future Scheduled Test 1972 00:00:00 Screening for malignant neoplasm of colon (procedure) [code = 017280869] [facility] Future Scheduled Test 1972 00:00:00 Screening for malignant neoplasm of colon (procedure) [code = 704154911] [facility] Future Scheduled Test 1972 00:00:00 Screening for malignant neoplasm of colon (procedure) [code = 088969191] [facility] Future Scheduled Test 1972 00:00:00 Screening for malignant neoplasm of colon (procedure) [code = 684176632] [facility] Future Scheduled Test 1972 00:00:00 Sigmoidoscopy [code = Sigmoidoscopy] [facility] Future Scheduled Test 1972 00:00:00 Screening for malignant neoplasm of breast (procedure) [code = 910952803] [facility] Future Scheduled Test 1972 00:00:00 CT Colonography (combo) [code = CT Colonography (combo)] [facility] Future Scheduled Test 1972 00:00:00 Screening for malignant neoplasm of colon (procedure) [code = 329915707] [facility] Future Scheduled Test 1972 00:00:00 Screening for malignant neoplasm of colon (procedure) [code = 129167056] [facility] Future Scheduled Test 1972 00:00:00 Screening for malignant neoplasm of colon (procedure) [code = 191009308] [facility] Future Scheduled Test 1972 00:00:00 Screening for malignant neoplasm of colon (procedure) [code = 649035497] [facility] Future Scheduled Test 1972 00:00:00 Sigmoidoscopy [code = Sigmoidoscopy] [facility] Future Scheduled Test 1972 00:00:00 Screening for malignant neoplasm of breast (procedure) [code = 924032972] [facility] Future Scheduled Test 1972 00:00:00 CT Colonography (combo) [code = CT Colonography (combo)] [facility] Future Scheduled Test 1972 00:00:00 Screening for malignant neoplasm of colon (procedure) [code = 484315892] [facility] Future Scheduled Test 1972 00:00:00 Screening for malignant neoplasm of colon (procedure) [code = 169520391] [facility] Future Scheduled Test 1972 00:00:00 Screening for malignant neoplasm of colon (procedure) [code = 047772099] [facility] Future Scheduled Test 1972 00:00:00 Screening for malignant neoplasm of colon (procedure) [code = 775073205] [facility] Future Scheduled Test 1972 00:00:00 Sigmoidoscopy [code = Sigmoidoscopy] [facility] Future Scheduled Test 1972 00:00:00 Screening for malignant neoplasm of breast (procedure) [code = 525774940] [facility] Future Scheduled Test 1972 00:00:00 CT Colonography (combo) [code = CT Colonography (combo)] [facility] Future Scheduled Test 1972 00:00:00 Screening for malignant neoplasm of colon (procedure) [code = 337606552] [facility] Future Scheduled Test 1972 00:00:00 Screening for malignant neoplasm of colon (procedure) [code = 809361896] [facility] Future Scheduled Test 1972 00:00:00 Screening for malignant neoplasm of colon (procedure) [code = 607927141] [facility] Future Scheduled Test 1972 00:00:00 Screening for malignant neoplasm of colon (procedure) [code = 353442495] [facility] Future Scheduled Test 1972 00:00:00 Sigmoidoscopy [code = Sigmoidoscopy] [facility] Future Scheduled Test 1972 00:00:00 Screening for malignant neoplasm of breast (procedure) [code = 621537952] [facility] Future Scheduled Test 1972 00:00:00 CT Colonography (combo) [code = CT Colonography (combo)] [facility] Future Scheduled Test 1972 00:00:00 Screening for malignant neoplasm of colon (procedure) [code = 160349586] [facility] Future Scheduled Test 1972 00:00:00 Screening for malignant neoplasm of colon (procedure) [code = 026762812] [facility] Future Scheduled Test 1972 00:00:00 Screening for malignant neoplasm of colon (procedure) [code = 561068771] [facility] Future Scheduled Test 1972 00:00:00 Screening for malignant neoplasm of colon (procedure) [code = 191045917] [facility] Future Scheduled Test 1972 00:00:00 Sigmoidoscopy [code = Sigmoidoscopy] [facility] Goal Plan of Care Not e [code = 36243-8] Goal Plan of Care Not e [code = 85834-8] Goal Plan of Care Not e [code = 22466-6] Goal Plan of Care Not e [code = 19269-2] Goal Plan of Care Not e [code = 20293-6] Goal Plan of Care Not e [code = 60387-8] Goal Plan of Care Not e [code = 55221-7] Goal Plan of Care Not e [code = 22748-6] Goal Plan of Care Not e [code = 72110-8] Goal Plan of Care Not e [code = 25417-0] Goal Plan of Care Not e [code = 72947-6] Goal Plan of Care Not e [code = 79962-2] Goal Plan of Care Not e [code = 10970-3] Goal Plan of Care Not e [code = 19422-4] Goal Plan of Care Not e [code = 33377-7] Goal Plan of Care Not e [code = 87156-6] Goal Plan of Care Not e [code = 24805-1] Goal Plan of Care Not e [code = 74988-9] Goal Plan of Care Not e [code = 56113-6] Goal Plan of Care Not e [code = 40623-0] Goal Plan of Care Not e [code = 19989-3] Goal Plan of Care Not e [code = 58510-1] Goal Plan of Care Not e [code = 38212-3] Goal Plan of Care Not e [code = 12450-1] Goal Plan of Care Not e [code = 51558-1] Goal Plan of Care Not e [code = 24753-8] Goal Plan of Care Not e [code = 18481-3] Goal Plan of Care Not e [code = 12338-3] Goal Plan of Care Not e [code = 71503-7] Goal Plan of Care Not e [code = 28777-0] Goal Plan of Care Not e [code = 79532-1] Goal Plan of Care Not e [code = 90361-1] Goal Plan of Care Not e [code = 60382-5] Goal Plan of Care Not e [code = 24894-6] Goal Plan of Care Not e [code = 30505-8] Encounters Start Date/Time End Date/Time Encounter Type Admission Type Attending Clinicians Care Facility Care Department Encounter ID Source 2023-06-16 09:32:36 Inpatient AYDEE [facility] [id number] [facility] 2023-06-16 09:32:09 Inpatient AYDEE [facility] [id number] [facility] 2023-06-16 09:31:53 Inpatient AYDEE [facility] [id number] [facility] 2023-06-14 07:46:02 Inpatient AYDEE [facility] [id number] [facility] 2023-06-14 07:39:22 Inpatient AYDEE [facility] [id number] [facility] 2023-06-14 06:38:38 Inpatient AYDEE [facility] [id number] [facility] 2023-06-13 13:44:18 Inpatient EL CARA [facility]UR[facility] [id number] [facility] 2023-06-13 11:45:24 Inpatient EL AYDEE GO [facility] [id number] [facility] 2023-05-08 11:21:00 Outpatient EL ADAM GARCIA [facility] Surgery [id number] [facility] 2023-04-01 14:26:29 Inpatient ER DEVORA, THOMAS [facility] [id number] [facility] 2023-03-31 09:24:52 Inpatient ER MARIAH ALDRIDGE [facility] [id number] [facility] 2021-05-20 18:48:04 Emergency [facility] [id number] [facility] 2021-05-20 12:43:40 Emergency [facility] [id number] [facility] 2023-06-13 03:43:00 2023-06-16 19:45:00 Hospital Encounter ER Cara Burgess Sahar [facility] [id number] [facility] 2023-06-13 03:43:00 2023-06-16 19:45:00 Inpatient ER AYDEE GO [facility] Internal Med [id number] [facility] 2023-06-13 03:43:00 2023-06-16 19:45:00 Hospital Encounter Cara Burgess Sahar [facility] [id number] [facility] 2023-06-15 00:00:00 2023-06-15 00:00:00 Orders Only System, Provider Not In [facility] [id number] [facility] 2023-06-15 00:00:00 2023-06-15 00:00:00 Orders Only System, Provider Not In [facility] [id number] [facility] 2023-06-13 16:30:06 2023-06-13 16:30:06 Outpatient EL AYDEE GO [facility] [id number] [facility] 2023-06-13 00:00:00 2023-06-13 00:00:[address] [facility] [id number] [facility] 2023-06-13 00:00:00 2023-06-13 00:00:00 Travel [facility] [id number] [facility] 2023-06-13 00:00:00 2023-06-13 00:00:[address] [facility] [id number] [facility] 2023-06-13 00:00:00 2023-06-13 00:00:00 Travel [facility] [id number] [facility] 2023-06-12 00:00:00 2023-06-12 00:00:[address] [facility] [id number] [facility] 2023-06-12 00:00:00 2023-06-12 00:00:00 Telephone Dallas Gomez Rajeev [facility] [id number] [facility] 2023-05-28 06:45:00 2023-06-04 17:36:00 Hospital Encounter NICOLETTE Adam Garcia [facility] [id number] [facility] 2023-05-28 06:45:00 2023-06-04 17:36:00 Inpatient ADAM BRANTLEY [facility] Surgery [id number] [facility] 2023-05-28 06:45:00 2023-06-04 17:36:00 Hospital Encounter Adam Garcia [facility] [id number] [facility] 2023-06-01 09:10:00 2023-06-01 13:00:00 Anesthesia Event Harry Newsome Mujtaba Ahmad [facility] [id number] [facility] 2023-06-01 09:10:00 2023-06-01 13:00:00 Anesthesia Event Harry Newsome Mujtaba Ahmad [facility] [id number] [facility] 2023-06-01 09:00:00 2023-06-01 11:30:[address] [facility] [id number] [facility] 2023-06-01 09:00:00 2023-06-01 11:30:[address] [facility] [id number] [facility] 2023-06-01 09:47:57 2023-06-01 09:47:57 Outpatient ADAM BRANTLEY [facility] [id number] [facility] 2023-06-01 09:40:34 2023-06-01 09:40:34 Outpatient ADAM BRANTLEY [facility] [id number] [facility] 2023-05-31 09:25:55 2023-05-31 23:59:00 Inpatient ADAM BRANTLEY [facility] [id number] [facility] 2023-05-31 09:00:00 2023-05-31 23:59:00 Hospital Encounter Adam Garcia [facility] [id number] [facility] 2023-05-31 09:00:00 2023-05-31 23:59:00 Hospital Encounter Adam Garcia [facility] [id number] [facility] 2023-05-28 18:15:29 2023-05-28 18:15:29 Outpatient ADAM BRANTLEY [facility] [id number] [facility] 2023-05-28 08:30:00 2023-05-28 11:54:00 Anesthesia Event Ramya, Yue [facility] [id number] [facility] 2023-05-28 08:30:00 2023-05-28 11:54:00 [facility]est[id number] [facility] 2023-05-28 11:41:14 2023-05-28 11:41:14 Outpatient ADAM BRANTLEY [facility] [id number] [facility] 2023-05-28 08:30:00 2023-05-28 11:00:[address] [facility] [id number] [facility] 2023-05-28 08:30:00 2023-05-28 11:00:[address] [facility] [id number] [facility] 2023-05-28 10:00:47 2023-05-28 10:00:47 Outpatient ADAM BRANTLEY [facility] [id number] [facility] 2023-05-28 00:00:00 2023-05-28 00:00:00 Travel [facility] [id number] [facility] 2023-05-28 00:00:00 2023-05-28 00:00:00 Travel [facility] [id number] [facility] 2023-05-26 09:00:00 2023-05-26 09:00:00 Hospital Encounter Adam Garcia [facility] [id number] [facility] 2023-05-26 09:00:00 2023-05-26 09:00:00 Hospital Encounter Adam Garcia [facility] [id number] [facility] 2023-05-26 00:00:00 2023-05-26 00:00:00 Outpatient EL ADAM GARCIA [facility] [id number] [facility] 2023-05-26 00:00:00 2023-05-26 00:00:00 Outpatient NICOLETTE SLERigoberto [facility] [id number] [facility] 2023-05-26 00:00:00 2023-05-26 00:00:00 Travel [facility] [id number] [facility] 2023-05-26 00:00:00 2023-05-26 00:00:00 Travel [facility] [id number] [facility] 2023-05-13 11:43:03 2023-05-13 11:43:03 Outpatient SFA SFA [id number] Adria Martínez 2023-05-12 00:00:00 2023-05-12 00:00:00 Orders Only Adam Garcia [facility] [id number] [facility] 2023-05-12 00:00:00 2023-05-12 00:00:00 Orders Only Adam Garcia [facility] [id number] [facility] 2023-05-08 14:11:21 2023-05-08 14:11:21 Outpatient SFA SFA [id number] Adria Martínez 2023-03-29 19:25:00 2023-04-02 20:48:00 Hospital Encounter ANTHONY Davey, Connie Aldridge, Mariah Lozoya, Thomas Hopkins [facility] [id number] [facility] 2023-03-29 19:25:00 2023-04-02 20:48:00 Inpatient ER THOMAS LOZOYA [facility] Neurology [id number] [facility] 2023-03-29 19:25:00 2023-04-02 20:48:00 Hospital Encounter Connie Davey Shireen Kulkarni, Mrinalini Zade [facility] [id number] [facility] 2023-03-31 08:32:56 2023-03-31 00:00:00 Inpatient ER MARIAH ALDRIDGE SLERigoberto [facility] [id number] [facility] 2023-03-30 10:24:12 2023-03-30 23:59:00 Outpatient ER CONNIE DAVEY SLERigoberto [facility] [id number] [facility] 2023-03-30 09:40:00 2023-03-30 23:59:00 Hospital Encounter Connie Davey [facility] [id number] [facility] 2023-03-30 09:40:00 2023-03-30 23:59:00 Hospital Encounter Connie Davey [facility] [id number] [facility] 2023-03-30 13:46:20 2023-03-30 13:46:20 Outpatient ER MARIAH ALDRIDGE SLERigoberto SLE [id number] [facility] 2023-03-30 13:46:14 2023-03-30 13:46:14 Outpatient ER MARIAH ALDRIDGE SLERigoberto SLE [id number] [facility] 2023-03-30 10:24:04 2023-03-30 10:24:04 Outpatient ER CONNIE DAVEY SLERigoberto SLE [id number] [facility] 2023-03-30 00:00:00 2023-03-30 00:00:[address] [facility] [id number] [facility] 2023-03-30 00:00:00 2023-03-30 00:00:00 Travel [facility] [id number] [facility] 2023-03-30 00:00:00 2023-03-30 00:00:[address] [facility] [id number] [facility] 2023-03-30 00:00:00 2023-03-30 00:00:00 Travel [facility] [id number] [facility] 2022-12-11 08:56:00 2022-12-11 15:29:00 Emergency X Alfonso ALVARADO [facility] ERT [id number] [facility] 2022-12-11 08:56:00 2022-12-11 15:29:00 Emergency Alfonso Alvarado Lorelei [facility] 1.2.840.114 350.1.13.10 4.2.7.2.686 [id number] [facility] 2022-11-17 17:25:00 2022-11-18 01:19:00 Emergency X RITCHIE WARREN [facility] ERT [id number] [facility] 2022-11-17 17:25:00 2022-11-18 01:19:00 Emergency Ritchie Warren E [facility] 1.2.840.114 350.1.13.10 4.2.7.2.686 [id number] [facility] 2022-08-28 00:00:00 2022-08-28 00:00:00 Patient Outreach Shy Beckman [facility] 1.2.840.114 350.1.13.10 4.2.7.2.686 [id number] [facility] 2022-08-20 00:00:00 2022-08-20 00:00:00 Patient Outreach Shy Beckman [facility] 1.2.840.114 350.1.13.10 4.2.7.2.686 [id number] [facility] 2022-08-02 17:30:00 2022-08-03 14:29:00 Hospital Encounter Halima Guan, Parrish Ferguson [facility] [id number] [facility] 2022-08-02 17:30:00 2022-08-03 14:29:00 Outpatient ER PARRISH WHEATLEY [facility] Neurology [id number] [facility] 2022-08-03 00:00:00 2022-08-03 00:00:[address] [facility] [id number] [facility] 2022-08-02 00:00:00 2022-08-02 00:00:00 Travel [facility] [id number] [facility] 2022-07-31 11:42:00 2022-08-01 21:48:00 Inpatient X LORENZA LOWRY [facility] [id number] [facility] 2022-07-31 11:42:00 2022-08-01 21:48:00 Hospital Encounter Sav Rondon Yaman [facility] 1.2.840.114 350.1.13.10 4.2.7.2.686 [id number] [facility] 2022-08-01 00:00:00 2022-08-01 00:00:00 Transition of Care Maria Teresa Nicole 1.2.840.114 350.1.13.10 4.2.7.2.686 [id number] [facility] 2022-07-28 14:41:38 2022-07-28 14:41:38 Outpatient [facility] 9 Adria Martínez 2022-07-28 00:00:00 2022-07-28 00:00:00 Outpatient Visit [id number] 2022-07-24 13:24:40 2022-07-24 13:24:40 Outpatient [facility] 5 Adria Martínez 2022-05-23 14:51:01 2022-05-23 14:51:01 Outpatient SFA [facility] [id number] Adria Martínez 2022-05-23 00:00:00 2022-05-23 00:00:00 Outpatient Visit [id number] 2022-05-04 20:22:00 2022-05-08 14:44:00 Outpatient X CHANTEL BOJORQUEZCONTRA [facility] [id number] [facility] 2022-05-04 20:22:00 2022-05-08 14:44:00 Emergency BrinerBrandyn [facility] 1.840.114 350.1.13.10 4.2.7.2.686 [id number] [facility] 2022-04-13 13:06:00 2022-04-15 15:00:00 Inpatient X CONRAD [facility] [id number] [facility] 2022-04-13 13:06:00 2022-04-15 15:00:00 Hospital Encounter Sapna Vargas Muhammad Zeeshan [facility] 1.0.114 350.1.13.10 4.2.7.2.686 [id number] [facility] 2022-02-19 10:20:00 2022-02-19 10:30:00 Imm/Inj Visit Santos, Bethany Jose Santiago [facility] 1.0.114 350.1.13.10 4.2.7.2.686 [id number] [facility] 2022-02-19 10:20:00 2022-02-19 10:20:00 Outpatient R JOSE PAK [facility] [id number] [facility] 2021-11-23 15:07:00 2021-11-23 17:03:00 Emergency X JORJE VIRKANA [facility] ERT [id number] [facility] 2021-11-23 15:07:00 2021-11-23 17:03:00 Emergency Sav Rondon AjNichelle simmons [facility] 1..114 350.1.13.10 4.2.7.2.686 [id number] [facility] 2021-11-21 09:40:00 2021-11-21 09:40:00 Outpatient R [facility] [id number] [facility] 2021-05-24 09:30:00 2021-05-24 09:30:00 Outpatient R JOSE PAK [facility] [id number] [facility] 2021-05-24 08:47:51 2021-05-24 08:57:51 Imm/Inj Visit Vaccine, Bethany Dangelo Pak [facility] 1.114 350.1.13.10 4.2.7.2.686 [id number] [facility] 2021-05-03 09:40:00 2021-05-03 09:59:35 Outpatient R JOSE PAK [facility] [id number] [facility] 2021-05-03 09:17:43 2021-05-03 09:59:35 Imm/Inj Visit Vaccine, Bethany Dangelo Pak [facility] 1.114 350.1.13.10 4.2.7.2.686 [id number] [facility] 2021-04-16 00:00:00 2021-04-16 00:00:00 Orders Only Doctor Unassigned, Harlan [facility] 1..114 350.1.13.10 4.2.7.2.686 [id number] [facility] 2021-03-17 00:00:00 2021-03-17 00:00:00 Telephone Miky Nava [facility] 1.284.114 350.1.13.10 4.2.7.2.686 [id number] [facility] 2021-03-16 20:08:00 2021-03-16 23:24:00 Emergency Fabrice Chakraborty [facility] 1.284.114 350.1.13.10 4.2.7.2.686 [id number] [facility] 2021-03-14 18:59:34 2021-03-14 20:19:13 Urgent Care Lydia Desouza, Attending [facility] Medical Office Building 1.84.114 350.1.13.10 4.2.7.2.686 [id number] [facility] 2021-03-14 19:00:00 2021-03-14 19:00:00 Outpatient Terry UNKNOWN, ATTENDING [facility] [id number] [facility] 2021-02-19 10:49:00 2021-02-19 14:48:00 Emergency Anali Monroy S [facility] 1.840.114 350.1.13.10 4.2.7.2.686 [id number] [facility] 2019-03-09 00:00:00 2019-03-09 00:00:00 Yehuda Zimmerman [facility] Building 1.840.114 350.1.13.10 4.2.7.2.686 [id number] 2019-03-09 00:00:00 2019-03-09 00:00:00 [facility] 1..840.114 350.1.13.10 4.2.7.2.686 [id number] [facility] Results Test Description Test Time Test Comments Results Result Co mments Source BLOOD [id number] 07:00:09* Test Item Value Reference Range Interpretation Comme nts CULTURE (BEAKER) (test code = 1095) No growth in 5 days T-SPOT(R).[id number] 18:35:00* Test Item Value Reference Range Interpretation Comme nts T-SPOT.TB (test code = 3560830) Negative SeeBelow Normal Value: Ne gativeA negative [...] CORRECTED FOR NEG CONTROL (test code = 2767651) 1 PANEL B SPOT COUNT CORRECTED FOR NEG CONTROL (test code = 3445110) 0 NEGATIVE CONTROL (test code = 2163151) Passed POSITIVE CONTROL (test code = 6321817) Passed LYNDSAY (test code = LYNDSAY) [id number] [facility][id number] 18:35:00* Test Item Value Reference Range Interpretation Comme nts T-SPOT.TB (test code = 2591873) Negative SeeBelow Normal Value: Ne gativeA negative [...] 20150905) 0 NEGATIVE CONTROL (test code = 3369138) Passed POSITIVE CONTROL (test code = 3366420) Passed LYNDSAY (test code = LYNDSAY) [id number] [facility]).[id number] 18:35:00* Test Item Value Reference Range Interpretation [...] 20150905) 0 NEGATIVE CONTROL (test code = 3054291) Passed POSITIVE CONTROL (test code = 9528063) Passed LYNDSAY (test code = LYNDSAY) [id number] [facility]).[id number] 18:35:00* Test Item Value Reference Range Interpretation Comme nts T-SPOT.TB (test code = 5730772) Negative SeeBelow Normal Value: Ne gativeA negative [...] CORRECTED FOR NEG CONTROL (test code = 8615790) 1 PANEL B SPOT COUNT CORRECTED FOR NEG CONTROL (test code = 9874035) 0 NEGATIVE CONTROL (test code = 4335738) Passed POSITIVE CONTROL (test code = 2730162) Passed LYNDSAY (test code = LYNDSAY) 58377070 [facility]).[id number] 18:35:00* Test Item Value Reference Range Interpretation Comme nts T-SPOT.TB (test code = 0505479) Negative SeeBelow Normal Value: Ne gativeA negative [...] CORRECTED FOR NEG CONTROL (test code = 8773643) 1 PANEL B SPOT COUNT CORRECTED FOR NEG CONTROL (test code = 8199416) 0 NEGATIVE CONTROL (test code = 8470143) Passed POSITIVE CONTROL (test code = 7948359) Passed LYNDSAY (test code = LYNSDAY) [id number] [facility]).[id number] 18:35:00* Test Item Value Reference Range Interpretation Comme nts T-SPOT.TB (test code = 9049741) Negative SeeBelow Normal Value: Ne gativeA negative [...] 20150906) Passed POSITIVE CONTROL (test code = 6925573) Passed LYNDSAY (test code = LYNDSAY) 84031851 [facility]).[id number] 18:35:00* Test Item Value Reference Range Interpretation Comme nts T-SPOT.TB (test code = 7797861) Negative SeeBelow Normal Value: Ne gativeA negative [...] 20150905) 0 NEGATIVE CONTROL (test code = 0757541) Passed POSITIVE CONTROL (test code = 20150907) Passed LYNDSAY (test code = LYNDSAY) [id number] [facility]).[id number] 18:35:00* Test Item Value Reference Range Interpretation [...] 20150905) 0 NEGATIVE CONTROL (test code = 6302793) Passed POSITIVE CONTROL (test code = 4272555) Passed LYNDSAY (test code = LYNDSAY) 24580101 [facility]).[id number] 18:35:00* Test Item Value Reference Range Interpretation [...] 20150905) 0 NEGATIVE CONTROL (test code = 5347519) Passed POSITIVE CONTROL (test code = 20150907) Passed LYNDSAY (test code = LYNDSAY) [id number] [facility]).[id number] 18:35:00* Test Item Value Reference Range Interpretation Comme nts T-SPOT.TB (test code = 8213678) Negative SeeBelow Normal Value: Ne gativeA negative [...] CORRECTED FOR NEG CONTROL (test code = 3410645) 0 NEGATIVE CONTROL (test code = 9445661) Passed POSITIVE CONTROL (test code = 2702187) Passed LYNDSAY (test code = LYNDSAY) 87209014 [facility]).[id number] 18:35:00* Test Item Value Reference Range Interpretation Comme nts T-SPOT.TB (test code = 8986592) Negative SeeBelow Normal Value: Ne gativeA negative [...] CORRECTED FOR NEG CONTROL (test code = 4647501) 1 PANEL B SPOT COUNT CORRECTED FOR NEG CONTROL (test code = 4042423) 0 NEGATIVE CONTROL (test code = 9282616) Passed POSITIVE CONTROL (test code = 7395212) Passed LYNDSAY (test code = LYNDSAY) [id number] [facility] losn7237-47-95 13:41:18 Transesophageal Echocardiography Report (CHETAN) Demographics Patient Name YUE LAWS Date of Study 06/16/2023 ESTELLE Gender Female Visit Number [id number] Race Room Number 1055 Number Date of 1970 Referring Physician Age 53 year(s) Senior Applications Analyst Interpreting Physician Brian MDProcedure Type of Study [...] Tricuspid Valve Partially visualized. Pulmonic [id number] 09:55:41* Test Item Value Reference Range Interpretation Comme nts Result (test code = 6463-4) No [facility] haeuen9591-27-22 09:55:41* Test Item Value Reference Range Interpretation Comme nts Result (test code = 6463-4) No [facility] [id number] 09:55:41* Test Item Value Reference Range Interpretation Comme nts Result (test code = 6463-4) No [facility] yzdxwy9192-73-35 09:55:41* Test Item Value Reference Range Interpretation Comme nts Result (test code = 6463-4) No MRSA isolated [facility] ioqebq3002-16-22 09:55:41* Test Item Value Reference Range Interpretation Comme nts Result (test code = 6463-4) No MRSA isolated [facility] [id number] 09:55:41* Test Item Value Reference Range Interpretation Comme nts Result (test code = 6463-4) No MRSA isolated [facility] yldkjy0511-51-75 09:55:41* Test Item Value Reference Range Interpretation Comme nts Result (test code = 6463-4) No MRSA isolated [facility] [id number] 09:55:41* Test Item Value Reference Range Interpretation Comme nts Result (test code = 6463-4) No MRSA isolated [facility] [id number] 09:55:41* Test Item Value Reference Range Interpretation Comme nts Result (test code = 6463-4) No MRSA isolated [facility] falqws4762-01-93 09:55:41* Test Item Value Reference Range Interpretation Comme nts Result (test code = 6463-4) No MRSA isolated [facility] [id number] 09:55:41* Test Item Value Reference Range Interpretation Comme nts Result (test code = 6463-4) No MRSA isolated [facility] [id number] 09:55:41* Test Item Value Reference Range Interpretation Comme nts CULTURE (BEAKER) (test code = 1095) No MRSA isolated CRYPTOCOCCAL [id number] 15:50:36* Test Item Value Reference Range Interpretation Comme nts CRYPTOCOCCAL ANTIGEN, SERUM (BEAKER) (test code = 1828) Negative Negative, Interference SPUTUM CULTURE + GRAM [id number] 10:30:11* Test Item Value Reference Range Interpretation [...] GRAM STAIN RESULT (BEAKER) (test code = 450621) 10-15 epithelial cells GRAM STAIN RESULT (BEAKER) (test code = 112945) 2+ gram positive cocci in chains and pairs GRAM STAIN RESULT (BEAKER) (test code = 761123) 1+ gram negative rods GRAM STAIN RESULT (BEAKER) (test code = 541099) 1+ yeast 2+ Normal respiratory rebel presentVANCOMYCIN LEVEL, [id number] 06:41:26* Test Item Value Reference Range Interpretation Comme nts VANCOMYCIN TROUGH (BEAKER) ( test code = 522) 17.0 ug/mL 10.0-20.0 Asphalt Dauber ID - ADMINECHO W CONTRAST & [id number] 13:44:03Transthoracic Echocardiography Report (TTE) Demographics Patient Name YUE LAWS Date of Study 06/14/2023 ESTELLE Gender Female Visit Number [id number] Race Room Number [id number] Number Date of 1970 Referring Aydee Go MD Physician Age 53 year(s) Senior Applications Analyst James Albarran RDCS Interpreting Mauricio Bonilla Physician MDProcedure Type of Study TTE procedure:2DECHO [...] Peak Velocity: 0.85 m/s Peak Gradient: 2.89 mmHgInter-Community [facility] 2023-06-14 09:26:42* Test Item Value Reference Range Interpretation Comme nts HEMOGLOBIN A1C ELECTROPHORESIS (LATOYA) (test code = 3811) 6.7 % See_Comment H [Automated me ssage] The system which generated this result transmitted reference range: <=5.6%. The reference range was not used to interpret this result as normal/abnormal. "The A1c is measured using a [facility]-certified method. HbA1c value equal to or greater than 6.5% as the diagnosis cutoff for diabetes. An HbA1c value of 5.7- 6.4% indicates increased risk for diabetes (prediabetes)."Asphalt Dauber ID - ADMOperator ID - ADMECG 12 ooqy0308-12-14 09:06:12Ventricular Rate 97 BPMAtrial Rate 97 BPMP-R Interval 146 msQRS Duration 96 msQ-T Interval 378 msQTC Calculation(Bazett) 480 msP Mobile 68 degreesR Mobile 107 degreesT Mobile 18 degrees Suspect arm leadreversal, interpretation assumes no reversalNormal sinus rhythmRightward axisNonspecific T wave abnormalityAbnormal ECGWhen compared with ECG of 30-MAR-2023 13:06,QRS axis Shifted rightConfirmed by Luis Lopez ([id number]) on 06/14/2023 9:06:07 [facility] [id number] 09:06:12Ventricular Rate 97 BPMAtrial Rate 97 BPMP-R Interval 146 msQRS Duration 96 msQ-T Interval 378 msQTC Calculation(Bazett) 480 msP Mobile 68 degreesR Mobile 107 degreesT Mobile 18 degrees Suspect arm leadreversal, interpretation assumes no reversalNormal sinus rhythmRightward axisNonspecific T wave abno rmalityAbnormal ECGWhen compared with ECG of 30-MAR-2023 13:06,QRS axis Shifted rightConfirmed by Luis Lopez ([id number]) on 06/14/2023 9:06:07 [facility] HospitalBASI METABOLIC [id number] 04:48:18* Test Item Value Reference Range Interpretation [...] GFR is not applicable for dialysis patients Asphalt Dauber ID - ADMINCBC (HEMOGRAM ONLY)2023-06-14 04:22:50* Test [...] 413) 0 /100 WBC 0-0 Strep pneumoniae [id number] 23:34:41* Test Item Value Reference Range Interpretation Comme nts Strep pneumoniae Antigen (test code = 71997-3) Presumptive negative for pneumococcal pneumonia - see [...] the test. Lab Interpretation (test code = 75562-7) [facility] [id number] 23:34:41* Test Item Value Reference Range Interpretation Comme nts Strep pneumoniae Antigen (test code = 70132-0) Presumptive negative for pneumococcal pneumonia - see [...] the test. Lab Interpretation (test code = 06229-9) Normal [facility] [id number] 23:34:41* Test Item Value Reference Range Interpretation Comme nts Strep pneumoniae Antigen (test code = 86103-0) Presumptive negative for pneumococcal pneumonia - see [...] the test. Lab Interpretation (test code = 43637-5) Normal [facility] [id number] 23:34:41* Test Item Value Reference Range Interpretation Comme nts Strep pneumoniae Antigen (test code = 45588-6) Presumptive negative for pneumococcal pneumonia - see [...] the test. Lab Interpretation (test code = 93082-7) Normal [facility] [id number] 23:34:41* Test Item Value Reference Range Interpretation Comme nts Strep pneumoniae Antigen (test code = 22763-6) Presumptive negative for pneumococcal pneumonia - see [...] the test. Lab Interpretation (test code = 65250-8) Normal [facility] [id number] 23:34:41* Test Item Value Reference Range Interpretation Comme nts Strep pneumoniae Antigen (test code = 78080-0) Presumptive negative for pneumococcal pneumonia - see [...] the test. Lab Interpretation (test code = 55378-2) Normal [facility] [id number] 23:34:41* Test Item Value Reference Range Interpretation Comme nts Strep pneumoniae Antigen (test code = 43594-6) Presumptive negative for pneumococcal pneumonia - see [...] the test. Lab Interpretation (test code = 02180-7) Normal [facility] [id number] 23:34:41* Test Item Value Reference Range Interpretation Comme nts Strep pneumoniae Antigen (test code = 43418-6) Presumptive negative for pneumococcal pneumonia - see [...] the test. Lab Interpretation (test code = 93906-1) Normal [facility] [id number] 23:34:41* Test Item Value Reference Range Interpretation Comme nts Strep pneumoniae Antigen (test code = 63546-9) Presumptive negative for pneumococcal pneumonia - see [...] the test. Lab Interpretation (test code = 69685-4) Normal [facility] [id number] 23:34:41* Test Item Value Reference Range Interpretation Comme nts Strep pneumoniae Antigen (test code = 19146-5) Presumptive negative for pneumococcal pneumonia - see [...] the test. Lab Interpretation (test code = 41572-1) Normal [facility] [id number] 23:34:41* Test Item Value Reference Range Interpretation Comme nts Strep pneumoniae Antigen (test code = 20930-1) Presumptive negative for pneumococcal pneumonia - see [...] the test. Lab Interpretation (test code = 02166-5) Normal [facility] CenterTREP PNEUMONIAE [id number] 23:34:41* Test Item Value Reference Range Interpretation [...] detection limit of the test. Legionella antigen, [id number] 23:29:07* Test Item Value Reference Range Interpretation Comme [facility] Legionella Urine Antigen (test code = 13109-6) Negative - see comment Negative Negative for L. pneumophila serogroup 1 antigen, suggesting no recent or current infection with this serogroup. Legionellosis cannot be ruled out since other serogroups and species may cause disease. Lab Interpretation (test code = 58267-7) Normal [facility] CenterLegionella antigen, [id number] 23:29:07* Test Item Value Reference Range Interpretation Comme nts Legionella Urine Antigen (test code = 40873-9) Negative - see comment Negative Negative for L. pneumophila serogroup 1 antigen, suggesting no recent or current infection with this serogroup. Legionellosis cannot be ruled out since other serogroups and species may cause disease. Lab Interpretation (test code = 70193-3) Normal [facility] CenterLegionella antigen, [id number] 23:29:07* Test Item Value Reference Range Interpretation Comme nts Legionella Urine Antigen (test code = 63101-5) Negative - see comment Negative Negative for L. pneumophila serogroup 1 antigen, suggesting no recent or current infection with this serogroup. Legionellosis cannot be ruled out since other serogroups and species may cause disease. Lab Interpretation (test code = 99176-6) Normal [facility] CenterLegionella antigen, [id number] 23:29:07* Test Item Value Reference Range Interpretation Comme nts Legionella Urine Antigen (test code = 28955-2) Negative - see comment Negative Negative for L. pneumophila serogroup 1 antigen, suggesting no recent or current infection with this serogroup. Legionellosis cannot be ruled out since other serogroups and species may cause disease. Lab Interpretation (test code = 28465-4) Normal [facility] CenterLegionella antigen, [id number] 23:29:07* Test Item Value Reference Range Interpretation Comme nts Legionella Urine Antigen (test code = 91871-9) Negative - see comment Negative Negative for L. pneumophila serogroup 1 antigen, suggesting no recent or current infection with this serogroup. Legionellosis cannot be ruled out since other serogroups and species may cause disease. Lab Interpretation (test code = 58839-7) Normal [facility] CenterLegionella antigen, [id number] 23:29:07* Test Item Value Reference Range Interpretation Comme nts Legionella Urine Antigen (test code = 86567-1) Negative - see comment Negative Negative for L. pneumophila serogroup 1 antigen, suggesting no recent or current infection with this serogroup. Legionellosis cannot be ruled out since other serogroups and species may cause disease. Lab Interpretation (test code = 93322-1) Normal [facility] CenterLegionella antigen, [id number] 23:29:07* Test Item Value Reference Range Interpretation Comme nts Legionella Urine Antigen (test code = 37729-7) Negative - see comment Negative Negative for L. pneumophila serogroup 1 antigen, suggesting no recent or current infection with this serogroup. Legionellosis cannot be ruled out since other serogroups and species may cause disease. Lab Interpretation (test code = 66987-6) Normal [facility] CenterLegionella antigen, [id number] 23:29:07* Test Item Value Reference Range Interpretation Comme nts Legionella Urine Antigen (test code = 91712-0) Negative - see comment Negative Negative for L. pneumophila serogroup 1 antigen, suggesting no recent or current infection with this serogroup. Legionellosis cannot be ruled out since other serogroups and species may cause disease. Lab Interpretation (test code = 01539-2) Normal [facility] CenterLegionella antigen, [id number] 23:29:07* Test Item Value Reference Range Interpretation Comme nts Legionella Urine Antigen (test code = 58064-8) Negative - see comment Negative Negative for L. pneumophila serogroup 1 antigen, suggesting no recent or current infection with this serogroup. Legionellosis cannot be ruled out since other serogroups and species may cause disease. Lab Interpretation (test code = 63658-1) Normal [facility] CenterLegionella antigen, [id number] 23:29:07* Test Item Value Reference Range Interpretation Comme nts Legionella Urine Antigen (test code = 18108-9) Negative - see comment Negative Negative for L. pneumophila serogroup 1 antigen, suggesting no recent or current infection with this serogroup. Legionellosis cannot be ruled out since other serogroups and species may cause disease. Lab Interpretation (test code = 77899-3) Normal [facility] CenterLegionella antigen, [id number] 23:29:07* Test Item Value Reference Range Interpretation Comme nts Legionella Urine Antigen (test code = 31093-7) Negative - see comment Negative Negative for L. pneumophila serogroup 1 antigen, suggesting no recent or current infection with this serogroup. Legionellosis cannot be ruled out since other serogroups and species may cause disease. Lab Interpretation (test code = 79439-6) Normal [facility] CenterLEGIONELLA ANTIGEN, [id number] 23:29:07* Test Item Value Reference Range Interpretation Comme nts L. PNEUMOPHILA SEROGP 1 UR AG (BEAKER) (test code = 1156) Negative - see comment Negative Negative for L. pneumophila serogroup 1 antigen, suggesting no recent or current infection with this serogroup. Legionellosis cannot be ruled out since other serogroups and species may cause disease. Venous doppler arm, [id number] 20:05:32PV LAB - Upper Extremities Veins Demographics Patient Name YUE LAWS Date of Study 06/13/2023 ESTELLE Age 53 Visit Number [id number] Gender Female Accession Number [id number] Date of 1970 Referring Cara Burgess Room Number 1055 Physician Senior Applications Analyst Lisa Ruiz Interpreting John Solorio, Physician FellowProcedureType [...] in cm/s ; Di[facility]HIV[facility] ANTIGEN WITH HIV-1/2 [id number] 18:36:40* Test Item Value Reference Range Interpretation Comme nts HIV-1 ANTIGEN WITH HIV 1\\T\\2 ANTIBODY (2) (LATOYA) (test code = 2586) Nonreactive Nonreactive MR lumbar spine without & with IV zqvfmqtu2785-13-19 14:53:29MR LUMBAR SPINE WITH & WITHOUT IV [...] x 1.7x 1.7 cm. Dorsal paraspinal musculature M3xyjbdbworofpol. Postcontrast imaging demonstrates mild peripheralenhancement of the dorsal paraspinal fluid collection. Left adrenalgland 2.9 cm nodule.[facility] CenterMR LUMBAR SPINE WITH & WITHOUT IV [id number] 14:53:29[facility] 1970 Sex: FMR [...] 1.7 x 1.7 cm. Dorsal paraspinal musculature E2vkrlhueddmwiol. Postcontrast imaging demonstrates mild peripheralenhancement of the [...] Signed By: Ryan Buckley06/13/2023 14:55 CDTWorkstation Name: [id number] KINASE (CK)2023-06-13 11:54:02* Test Item Value Reference Range Interpretation Comme nts CREATINE KINASE TOTAL (BEAKE R) (test code = 380) 43 U/L 29-200 Asphalt Dauber ID - ADMINCOMPREHENSIVE METABOLIC [id number] 06:48:22* Test Item Value Reference Range Interpretation [...] GFR is not applicable for dialysis patients Asphalt Dauber ID - ADMINPROTHROMBIN TIME/[id number] 06:40:01* Test Item Value Reference Range Interpretation [...] code = 2801) 1.70 % 0.00-1.00 H [id number] 05:26:09* Test Item Value Reference Range Interpretation Comme nts MAGNESIUM (BEAKER) (test cod e = 627) 2.0 mg/dL 1.6-2.6 Asphalt Dauber ID - YMXOMQRZEJNBFQV8336-64-94 05:26:09* Test Item Value Reference Range Interpretation Comme nts PHOSPHORUS (BEAKER) (test co de = 604) 3.5 mg/dL 2.3-4.7 Asphalt Dauber ID - ADMINBASIC METABOLIC [id number] 05:26:08* Test Item Value Reference Range Interpretation [...] GFR is not applicable for dialysis patients Asphalt Dauber ID - ADMINCBC W/PLT COUNT & AUTO [id number] 05:11:15* Test Item Value Reference Range Interpretation Comme nts WHITE BLOOD CELL COUNT (BEAK ER) (test code = 775) 13.6 K/ L 3.5-10.5 H RED BLOOD CELL COUNT (BEAKER ) (test code = 761) 3.76 M/ L 3.93-5.22 L HEMOGLOBIN (BEAKER) (test co de = 410) 10.9 GM/DL 11.2-15.7 L HEMATOCRIT (BEAKER) (test co de = 411) 35.4 % 34.1-44.9 MEAN CORPUSCULAR VOLUME (SGAE KER) (test code = 753) 94 fL [...] 0.70 % 0.00-1.00 XR spine lumbar 1 [id number] 10:32:20XR SPINE LUMBAR 1 VIEW CLINICAL INDICATION: L3-4 LAMINECTOMY [facility] [id number] 10:32:20 [facility] 1970 Sex: FXR SPINE LUMBAR 1 VIEWCLINICAL INDICATION: L3-4 LAMINECTOMYCOMPARISON: NoneIMPRESSION:A single lateral view of the lumbar spine is obtained intraoperatively.The posterior approach surgical instrument is seen at the L3-L4 level,inferior to the L3 spinous process. Results were communicated to , who concurred with the above findings. Electronically Signed By: Maxim Jean Baptisteip108/01/2022 10:34 CDTWo rkstation Name: [id number] SPINE LUMBAR 1 [id number] 10:29:18 [facility] 1970 Sex: FCLINICAL HISTORY: L3-4 LAMINECTOMYTECHNIQUE: Single view of the lumbar spine.COMPARISON: NoneFINDI NGS: A spinal needle overlies the L3 spinous process.Moderate spondylosis and facet arthropathy arepresent within the spine.Moderate to severe disc space narrowing at L4-L5. The vertebral body heights are maintained without fracture ordislocation. Scattered atherosclerotic vascular calcifications.IMPRESSION:A spinal needle overlies the L3 spinous process.Electronically Signed By: Maxim Ramos08/01/2022 10:31 CDTWorkstation Name: [id number] Screen, urine 2023-06-01 05:32:52* Test Item Value Reference Range Interpretation Comme nts Preg Test, Ur (test code = 2-1) Negative Negative Lab Interpretation (test cod e = 93329-6) Normal [facility] CenterPregnancy Screen, [id number] 05:32:52* Test Item Value Reference Range Interpretation Comme nts Preg Test, Ur (test code = 2-1) Negative Negative Lab Interpretation (test cod e = 06990-2) Normal [facility] CenterPregnancy Screen, [id number] 05:32:52* Test Item Value Reference Range Interpretation Comme nts Preg Test, Ur (test code = 2111-) Negative Negative Lab Interpretation (test cod e = 28932-3) Normal [facility] CenterPregnancy Screen, [id number] 05:32:52* Test Item Value Reference Range Interpretation Comme nts Preg Test, Ur (test code = 2111-) Negative Negative Lab Interpretation (test cod e = 80866-3) Normal [facility] CenterPregnancy Screen, [id number] 05:32:52* Test Item Value Reference Range Interpretation Comme nts Preg Test, Ur (test code = 2111-) Negative Negative Lab Interpretation (test cod e = 16622-5) Normal [facility] CenterPregnancy Screen, [id number] 05:32:52* Test Item Value Reference Range Interpretation Comme nts Preg Test, Ur (test code = 2111-1) Negative Negative Lab Interpretation (test cod e = 62625-8) Normal [facility] CenterPregnancy Screen, [id number] 05:32:52* Test Item Value Reference Range Interpretation Comme nts Preg Test, Ur (test code = 2111-1) Negative Negative Lab Interpretation (test cod e = 94754-2) Normal [facility] CenterPregnancy Screen, [id number] 05:32:52* Test Item Value Reference Range Interpretation Comme nts Preg Test, Ur (test code = 2111-1) Negative Negative Lab Interpretation (test cod e = 90533-6) Normal [facility] CenterPregnancy Screen, [id number] 05:32:52* Test Item Value Reference Range Interpretation Comme nts Preg Test, Ur (test code = 2111-1) Negative Negative Lab Interpretation (test cod e = 89050-7) Normal [facility] CenterPregnancy Screen, [id number] 05:32:52* Test Item Value Reference Range Interpretation Comme nts Preg Test, Ur (test code = 2111-1) Negative Negative Lab Interpretation (test cod e = 67498-0) Normal [facility] CenterPregnancy Screen, [id number] 05:32:52* Test Item Value Reference Range Interpretation Comme nts Preg Test, Ur (test code = 2111-) Negative Negative Lab Interpretation (test cod e = 32492-6) Normal [facility] CenterPregnancy Screen, [id number] 05:32:52* Test Item Value Reference Range Interpretation Comme nts Preg Test, Ur (test code = 2111-) Negative Negative Lab Interpretation (test cod e = 83855-7) Normal [facility] CenterPregnancy Screen, [id number] 05:32:52* Test Item Value Reference Range Interpretation Comme nts Preg Test, Ur (test code = 2111-) Negative Negative Lab Interpretation (test cod e = 63449-0) Normal [facility] CenterPregnancy Screen, [id number] 05:32:52* Test Item Value Reference Range Interpretation Comme nts Preg Test, Ur (test code = 2111-) Negative Negative Lab Interpretation (test cod e = 65299-6) Normal [facility] CenterPREGNANCY SCREEN, [id number] 05:32:52* Test Item Value Reference Range Interpretation Comme nts TEST URINE (BEAKER ) (test code = 583) Negative Negative BASIC METABOLIC [id number] 23:30:54* Test Item Value Reference Range Interpretation [...] GFR is not applicable for dialysis patients Asphalt Dauber ID - ADMINPT/ALKZ8682-63-94 23:15:33* Test Item Value Reference Range Interpretation [...] 15.3 % 11.7-14.4 H PLATELET COUNT (BEAKER) (arisa t code = 756) 392 K/CU MM [...] H CT neck soft tissue without IV vnbuvmlb6875-30-81 13:45:22EXAM: CT NECK SOFT TISSUE WITHOUT IV [...] Postoperative changes from anterior cervical discectomy fusionat C3-M8Qytykiob Lung Apices: NormalCHI [facility] Regional Medical CenterCT NECK SOFT TISSUE WITHOUT IV [id number] 13:45:22 [facility] ESTELLE : 1970 Sex: FEXAM: CT NECK SOFT [...] Postoperative changes from anterior cervical discectomy fusionat C3-J5Evxcfxpw Lung Apices: NormalIMPRESSION:Exam limited by lack of intravenous contrast.1. 1.8 x 2.9 x 1.3 cm ill-defined fluid collection in the leftanterolateral neck soft tissues, suggesting evolving postoperativehemorrhage. Superimposed infection is not ex cluded.2. Retropharyngeal fluid and air measuring up to 0.8 cm in thickness,favored to be present postoperative right frontal edema. Superimposedinfection is not excluded.3. Postoperative changes from ACDF at C3- X4Tjcvocepqdfzyu Signed By: Maxim Ramos07/31/2022 13:47 CDTWorkstation Name: [id number] METABOLIC [id number] 08:13:13* Test Item Value Reference Range Interpretation [...] GFR is not applicable for dialysis patients Asphalt Dauber ID - BVCBC W/PLT COUNT & AUTO [id number] 07:46:31* Test Item Value Reference Range Interpretation [...] 0.00-1.00 XR spine cervical 2 or 3 [id number] 20:24:23TECHNIQUE: Frontal and lateral views of the cervical spine. INDICATION: Postop Standing Films. COMPARISON: None.[facility] CenterXR SPINE CERVICAL 2 OR 3 [id number] 20:24:23[facility] : 1970 Sex: FTECHNIQUE: [...] Signed By: Zachariah Garcia05/28/2023 20:26 CDTWorkstation Name: [id number] fluoro non-specific up to 1 hour 2023-05-28 11:45:16This is a non-reportable study with no Radiologist dictation. Please refer to your PACS to review images, or Doc Flowsheets for documentation on studies without images.[facility] CenterFL FLUORO NON-SPECIFIC UP TO 1 [id number] 11:45:16 [facility] 1970 Sex: FThis is a non- reportable study with no Radiologist dictation. Please refer to your PACS to review images, or Doc Flowsheets for documentation on studies without images.FL FLUORO NON-SPECIFIC UP TO 1 [id number] 10:13:02 [facility] : 1970 Sex: FTECHNIQUE: 1 lateral fluoroscopic image of the cervical spine forlocalization.Fluoroscopic time: 3second(s).FINDINGS:The surgical pointer is at C3-C4.The findings were discussed with Dr. Garcia in theOR who concurred withthe findings.IMPRESSION:Intraoperative localization plain film as described abo ta.Electronically Signed By: Derik Reyez05/28/2023 10:15 CDTWorkstation Name: [id number], QUANTITATIVE, [id number] 08:21:03* Test Item Value Reference Range Interpretation Comme nts GONADOTROPIN, CHORIONIC (HCG ) QUANT (BEAKER) (test code = 649) < mIU/mL 0-10 Non- Females: <10 mIU/mL Females: Gestation Age Reference Range(mIU/mL) 0.2-1 Week 5-50 1-2 Weeks 50-500 2-3 Weeks 100-5,000 3-4 Weeks 500-10,000 4-5 Weeks 1,000-50,000 5-6 Weeks 10,000-100,000 6-8 Weeks 15,000- 200,000 2-3 Months 10,000-100,000 Asphalt Dauber ID - ADMINCULTURE, [id number] 09:28:30SPECIMEN NUMBER: [id number] CULTURE, URINE SPECIMEN NUMBER: [id number] SPECIMEN COMMENT: URINE SOURCE: URINE REPORT STATUS: FINAL FINAL REPORT: 05/15/2023 >100,000 CFU/ML UROGENITAL REBEL PRESENT NOCOMMON PATHOGENS UNLESS OTHERWISE INDICATED, ALL TESTING PERFORMED AT [facility] [address] [place] [address] SERVICE LOSS CONTROL CONSULTANT: JANNY STEINER M.D. CLIA NUMBER [id number] [place]. [id number], [id number] 12:02:50SPECIMEN NUMBER: [id number] CULTURE, URINE SPECIMEN NUMBER: [id number] SOURCE: URINE REPORT STATUS: FINAL FINAL REPORT: 05/13/2023 NO SPECIMEN RECEIVED FOR TESTING. CHARGES DELETED.BASIC METABOLIC [id number] 04:48:43* Test Item Value Reference Range Interpretation Comme nts GLUCOSE (test code = 2217) 117 MG/DL 70-99 H BUN (test code = 2208) 20 MG/DL 6-20 CREATININE (test code = 2214) 0.83 MG/DL 0.60-1.30 eGFR (2020 CKD-EPI) (test co de = 66003) 85 ML/MIN/1.73 >60 SODIUM (test code = [...] 12.7 SECONDS 12.5-14.7 INR (test code = 93059) 0.9 SEE BELOW CURRENT RECOMMENDATIONS ARE FOR AN INR OF 2.0-3.0 FOR ALL PATIENTS ON VITAMIN K ANTAGONISTS, EXCEPT THOSE WITH PROSTHETIC HEART VALVES, FOR WHOM INR OF 2.5-3.5 IS RECOMMENDED. UNLESS OTHERWISE INDICATED, ALL TESTING PERFORMED AT [facility] [address] [place] [address] SERVICE LOSS CONTROL CONSULTANT: JANNY STEINER M.D. CLIA NUMBER [id number] [place]. [id number] CBC W/AUTO DIFF WITH [id number] 01:54:17* Test Item Value Reference Range Interpretation [...] = 1065) 0.0 /100 WBC'S See_Comment [Automated Codelearna ge] The system which generated this result [...] H ABS NUCLEATED RBCS (test code = 33188) 0.00 K/UL 0.00-0.11 ECG 12 [id number] 14:02:48Ventricular Rate 102 BPMAtrial Rate 102 BPMP-R Interval 146 msQRS Duration 90 msQ-T Interval 372 msQTC Calculation(Bazett) 484 msP Mobile 11 degreesR Mobile -53 degreesT Mobile 29 degrees Sinus tachycardiaPossible Left atrial enlargementLeft axis deviationPoor R wave progression Cannot rule out Anterior infarct , age undetermined vs lead misplacementNonspecific T wave abnormalityProlonged QTAbnormal ECGNo previous ECGs availableConfirmed by David GARCIA BASANT ([id number]) on 04/06/2023 2:02:[address] [facility] & [id number] 13:11:39Transthoracic Echocardiography Report (TTE) Demographics Patient Name YUE LAWS Date of Study 03/31/2023 ESTELLE Gender Female Visit Number [id number] Race Room Number 2227 Number Date of 1970 Referring Physician Mariah Aldridge MD Age 53 year(s) Senior Applications Analyst Wilmer Francois Urban Forester Josefina Corbett [facility] Interpreting Physician Melody MDProcedure Type of [...] hypokinetic . LVEF by Downs's method of diskassessment is moderately reduced (30-34%) . Grade 2 [...] TR Gradient: 29.86 mmHg Pulmonic Valve Peak Velocity:0.74 m/s Peak Gradient: 2.22 mmHgInter-Community Medical CenterXR chest 1 view portable / [id number] 15:39:07TECHNIQUE: Frontal view of the chest. INDICATION: CHf. COMPARISON: None. FINDINGS: LINES/TUBES: None. HEART AND MEDIASTINUM: Cardiomediastinal contour is within normallimits. LUNGS: The lungs are well inflated and clear. No consolidation orpulmonary edema. PLEURA: No pneumothorax. No significant pleural effusion. SOFT TISSUES AND BONES: Cervical spinal fixation hardware is noted.[facility] CenterXR CHEST 1 VIEW PORTABLE / [id number] 15:39:07 [facility] ESTELLE : 1970 Sex: FTECHNIQUE: Frontal view of the chest.INDICATION: CHf.COMPARISON: None.FINDINGS:LINES/TUBES: None.HE ART AND MEDIASTINUM: Cardiomediastinal contour is within normallimits. LUNGS: The lungs are well inflated and clear. No consolidation orpulmonary edema.PLEURA: No pneumothorax. No significant pleuraleffusion.SOFT TISSUES AND BONES: Cervical spinal fixation hardware is noted.IMPRESSION:No acute card iopulmonary process.Electronically Signed By: Jose Carlos Lebron04/01/2023 15:41 CDTWorkstation Name: [id number] NATRIURETIC FACTOR (BNP)2023-04-01 14:15:07* Test Item Value Reference Range Interpretation Comme nts B-TYPE NATRIURETIC PEPTIDE ( BEAKER) (test code = 700) 192 pg/mL 0-100 H Asphalt Dauber ID - ADMINMR spine cervical without IV [id number] 11:30:35MRI cervical spine without contrast CLINICAL HISTORY: [...] and paraspinal soft tissues are within normal limits.[facility]-Community Medical CenterMR CERVICAL SPINE WITHOUT IV [id number] 11:30:35 [facility] : 1970 Sex: FMRI [...] Signed By: Maxim Sultana03/31/2023 11:32 CDTWorkstation Name: [id number] METABOLIC [id number] 04:43:14* Test Item Value Reference Range Interpretation [...] GFR is not applicable for dialysis patients Asphalt Dauber GEOVANNA CORREA WCBC (HEMOGRAM ONLY)2023-03-31 04:20:07* Test Item Value [...] 0 /100 WBC 0-0 Arterial doppler legs [id number] 17:44:07PV LAB - Lower Extremity Arterial Duplex Demographics Patient Name YUE LAWS Date of Study ESTELLE Age 53 Visit Number [id number] Gender Female Accession Number [id number] of 1970 Referring Mariah Aldridge, Room Number 2227 Physician Senior Applications Analyst Yovana Akins Interpreting John Solorio, Physician FellowProcedureType [...] ! !Triphasic ! !80.9 ! !Triphasic ! +- + + + [...] + + + + + + !Prox PLASTER FORM MAKER ! !32 ! !Biphasic ! !60.9 ! !Triphasic ! + + + + + + + + + + !Mid PLASTER FORM MAKER ! !25.9 ! !Biphasic ! !59.7 ! !Triphasic ! + + + + + + + + + + !Dist PLASTER FORM MAKER ! !33.2 ! !Biphasic ! !37.4 ! [...] + + + + + + +[facility] CenterABI's Only(Ankle/Brachial Index)2023-03-30 17:13:47PV LAB - Lower Extremity Arterial Procedure Demographics Patient Name YUE LAWS Date of Study 03/30/2023 ESTELLE Age 53 Visit Number [id number] Gender Female Accession Number [id number] Date of 1970 Referring Mariah Aldridge, Room Number 2227 Physician Senior Applications Analyst Yovana Akins Interpreting John Solorio, Physician FellowProcedureType of Study: Extremities Arteries: Lower Extremity Arterial Procedure, ARTERIAL (ALEISHA'S W/DOPPLER) ONLY.Indications for Study:PVD.Patient Status:Routine.Study Location:Vascular Lab.Technical Quality:Adequate visualization.Risk FactorsHistory of Disease+ + + -----+!Diagnosis !Date !Comments !+ + + +!History/Risk Factors: !03/30/2023!CHF, CVA, HTN. !+ + + [...] in cm/s ; Diameters are measured in [facility] thoracic spine without IV [id number] 12:50:50 THORACIC SPINE WITHOUT IV CONTRAST INDICATION: [...] and further reported on MRI lumbar spine. [facility] CenterMR THORACIC SPINE WITHOUT IV [id number] 12:50:50[facility] : 1970 Sex: FMR THORACIC SPINE [...] abnormality. T10-11 moderate right neural foraminal stenosis fhcB10-14 moderate bilateral foraminal stenosis due to facet [...] Signed By: Ryan Buckley03/30/2023 12:52 CDTWorkstation Name: [id number] spine lumbar without IV [id number] 12:33:57MR LUMBAR SPINE WITHOUT IV CONTRAST INDICATION: Unlisted Reason for ExamConcern for cord compression COMPARISON: None TECHNIQUE: Multiplanar, multisequence MR images of the lumbar spinewithout contrast. FINDINGS: For the purposes of this dictation, the 5 lowermost wdiewq-ycnpfhgzmiwrj-wkuc vertebral bodies are labeled L1-L5.Alignment of the [...] with mild to moderatebilateral neural foraminal stenosisCHI Community Regional Medical CenterMR LUMBAR SPINE WITHOUT IV [id number] 12:33:57 [facility] : 1970 Sex: FMR LUMBAR SPINE WITHOUT IV CONTRASTINDICATION: Unlisted Reason for ExamConcern for cord compressionCOMPARISON: NoneTECHNIQUE: Multiplanar, multisequence MR images of the lumbar spinewithout contrast. FINDINGS: For the purposes of this dictation, the 5 lowermost aebhgp-kdzwhjfebbtvw-evbv vertebral bodies are labeled L1- L5.Alignment of the lumbar spine is within normal limits. Vertebral body height is maintained. Bone marrow edema is seen at the inferior L3 and superior L4 vertebralbodies and bilateral L4 pedicles, favored to be degenerative in nature.Suggestion of a synovial cyst at the jeclvJ57-D07 level (series 301image eight).No spinal cord signal [...] flavum buckling versus synovial cyst at the vgqnmX35-A70 level (series 301image eight). MRI thoracic spine can beconsidered for further evaluation.7. Mild clumping of the cauda equina nerve roots, which is nonspecificbut may represent arachnoiditis. Postcontrast imaging can be consideredfor further evaluation.Electronically Signed By: Maxim Sultana03/30/2023 12:36 CDTWorkstation Name: [id number] 11:45:01* Test Item Value Reference Range Interpretation [...] 5.7- 6.4% indicates increased risk for diabetes (prediabetes)."Asphalt Dauber ID - ADMEEG AWAKE AND [id number] 09:57:53Steph Martinez MD 03/30/2023 9:59 AMELECTROENCEPHALOGRAM FOR [facility] EEG Type: Inpatient, outpatient, EMUDATE(s) OF EE03/30/23DATE OF REPORT: 03/30/23MRN: [id number] of : 1970EE-1454Start time: 08:36Stop time: 09:ICD-10: R56.9 CPT Code: 42328 (awake and asleep)HISTORY: 53 y/o female with [...] EEG recordings. Steph Elias MD, MPHNeurophysiology/Epilepsy AttendingCHI [facility] Center EEG AWAKE AND [id number] 09:57:53Steph Martinez MD 03/30/2023 9:[address] [facility] EEG Type: Inpatient, outpatient, EMUDATE(s) OF EE03/30/23DATE OF REPORT: 03/30/23MRN: [id number] of : 1970EE-1454Start time: 08:36Stop time: :ICD-10: R56.9 CPT Code: 34882 (awake and asleep)HISTORY: 53 y/o female with [...] EEG recordings. Steph Elias MD, MPHNeurophysiology/Epilepsy AttendingCH[facility] EEG AWAKE AND [id number] 09:57:53Gabrielstalin Martinez MD 03/30/2023 9:[address] [facility] EEG Type: Inpatient, outpatient, EMUDATE(s) OF EE03/30/23DATE OF REPORT: 03/30/23MRN: [id number] of : 1970EE-1454Start time: 08:36Stop time: 09:ICD-10: R56.9 CPT Code: 72864 (awake and asleep)HISTORY: 53 y/o female with [...] EEG recordings. Steph Elias MD, MPHNeurophysiology/Epilepsy AttendingCH[facility] VALPROIC ACID LEVEL, [id number] 09:42:31* Test Item Value Reference Range Interpretation Comme nts VALPROIC ACID TOTAL (BEAKER) (test code = 924) 76 ug/mL 50-100 Therapeutic range for some clinical conditions may be >100 ug/mLUrinalysis w/Microscopic + Reflex to [id number] 08:43:51* Test Item Value Reference Range Interpretation Comme nts Color, UA (test code = 5778-6) Yellow Clarity, UA (test code = 5767-9) Clear Specific [place], UA (test code = 5811-5) 1.033 1.001-1.035 pH, UA (test code = 5803-2) 6.0 5.0-8.0 Protein, UA (test code = 97772-6) 30 mg/dL Negative A Glucose, UA (test code = 365) Negative Negative Ketones, UA (test code = 2514-8) Negative Negative Bilirubin, UA (test code = 48818-1) Negative Negative Blood, UA (test code = 83114-4) Small Negative A Nitrite, UA (test code = 5802-4) Negative Negative Leukocytes, UA (test code = 5799-2) Negative Negative Urobilinogen, UA (test code = 97489-7) 0.2 0.2-1.0 RBC, UA (test code = 24500-5) 51 See_Comment [Automated message] The system which [...] Occasional Squam Epithel, UA (test code = 17343-0) See_Comment [Automated message] The system which generated this result transmitted reference range: /HPF. The reference range was not used to interpret this result as normal/abnormal. Specimen Source (test code = 2795) LYNDSAY (test code = LYNDSAY) Asphalt Dauber ID - [auto]Asphalt Dauber ID - tech Lab Interpretation (test code = 29964-4) Abnormal [facility] CenterUrinalysis w/Microscopic + Reflex to Culture 2023-03-30 08:43:51* Test Item Value Reference Range Interpretation Comme nts Color, UA (test code = 5778-6) Yellow Clarity, UA (test code = 5767-9) Clear Specific [place], UA (test code = 5811-5) 1.033 1.001-1.035 pH, UA (test code = 5803-2) 6.0 5.0-8.0 Protein, UA (test code = 50892-9) 30 mg/dL Negative A Glucose, UA (test code = 365) Negative Negative Ketones, UA (test code = 2514-8) Negative Negative Bilirubin, UA (test code = 12521-5) Negative Negative Blood, UA (test code = 08699-2) Small Negative A Nitrite, UA (test code = 5802-4) Negative Negative Leukocytes, UA (test code = 5799-2) Negative Negative Urobilinogen, UA (test code = 40293-1) 0.2 0.2-1.0 RBC, UA (test code = 28112-5) 51 See_Comment [Automated message] The system which [...] Occasional Squam Epithel, UA (test code = 04461-1) See_Comment [Automated message] The system which generated this result transmitted reference range: /HPF. The reference range was not used to interpret this result as normal/abnormal. Specimen Source (test code = 2795) LYNDSAY (test code = LYNDSAY) Asphalt Dauber ID - [auto]Asphalt Dauber ID - tech Lab Interpretation (test code = 69557-3) Abnormal [facility] CenterUrinalysis w/Microscopic + Reflex to Culture 2023-03-30 08:43:51* Test Item Value Reference Range Interpretation Comme nts Color, UA (test code = 5778-6) Yellow Clarity, UA (test code = 5767-9) Clear Specific [place], UA (test code = 5811-5) 1.033 1.001-1.035 pH, UA (test code = 5803-2) 6.0 5.0-8.0 Protein, UA (test code = 05035-3) 30 mg/dL Negative A Glucose, UA (test code = 365) Negative Negative Ketones, UA (test code = 2514-8) Negative Negative Bilirubin, UA (test code = 76729-0) Negative Negative Blood, UA (test code = 75388-1) Small Negative A Nitrite, UA (test code = 5802-4) Negative Negative Leukocytes, UA (test code = 5799-2) Negative Negative Urobilinogen, UA (test code = 00458-2) 0.2 0.2-1.0 RBC, UA (test code = 15085-9) 51 See_Comment [Automated message] The system which [...] Occasional Squam Epithel, UA (test code = 38851-9) See_Comment [Automated message] The system which generated this result transmitted reference range: /HPF. The reference range was not used to interpret this result as normal/abnormal. Specimen Source (test code = 2795) LYNDSAY (test code = LYNDSAY) Asphalt Dauber ID - [auto]Asphalt Dauber ID - tech Lab Interpretation (test code = 29489-2) Abnormal [facility] CenterUrinalysis w/Microscopic + Reflex to Culture 2023-03-30 08:43:51* Test Item Value Reference Range Interpretation Comme nts Color, UA (test code = 5778-6) Yellow Clarity, UA (test code = 5767-9) Clear Specific [place], UA (test code = 5811-5) 1.033 1.001-1.035 pH, UA (test code = 5803-2) 6.0 5.0-8.0 Protein, UA (test code = 49312-5) 30 mg/dL Negative A Glucose, UA (test code = 365) Negative Negative Ketones, UA (test code = 2514-8) Negative Negative Bilirubin, UA (test code = 10831-0) Negative Negative Blood, UA (test code = 58631-1) Small Negative A Nitrite, UA (test code = 5802-4) Negative Negative Leukocytes, UA (test code = 5799-2) Negative Negative Urobilinogen, UA (test code = 61698-1) 0.2 0.2-1.0 RBC, UA (test code = 68390-9) 51 See_Comment [Automated message] The system which [...] Occasional Squam Epithel, UA (test code = 69542-6) See_Comment [Automated message] The system which generated this result transmitted reference range: /HPF. The reference range was not used to interpret this result as normal/abnormal. Specimen Source (test code = 2795) LYNDSAY (test code = LYNDSAY) Asphalt Dauber ID - [auto]Asphalt Dauber ID - tech Lab Interpretation (test code = 85649-9) Abnormal [facility] CenterUrinalysis w/Microscopic + Reflex to Culture 2023-03-30 08:43:51* Test Item Value Reference Range Interpretation Comme nts Color, UA (test code = 5778-6) Yellow Clarity, UA (test code = 5767-9) Clear Specific [place], UA (test code = 5811-5) 1.033 1.001-1.035 pH, UA (test code = 5803-2) 6.0 5.0-8.0 Protein, UA (test code = 27967-7) 30 mg/dL Negative A Glucose, UA (test code = 365) Negative Negative Ketones, UA (test code = 2514-8) Negative Negative Bilirubin, UA (test code = 98451-8) Negative Negative Blood, UA (test code = 63475-7) Small Negative A Nitrite, UA (test code = 5802-4) Negative Negative Leukocytes, UA (test code = 5799-2) Negative Negative Urobilinogen, UA (test code = 53569-0) 0.2 0.2-1.0 RBC, UA (test code = 49943-5) 51 See_Comment [Automated message] The system which [...] Occasional Squam Epithel, UA (test code = 50971-5) See_Comment [Automated message] The system which generated this result transmitted reference range: /HPF. The reference range was not used to interpret this result as normal/abnormal. Specimen Source (test code = 2795) LYNDSAY (test code = LYNDSAY) Asphalt Dauber ID - [auto]Asphalt Dauber ID - tech Lab Interpretation (test code = 69892-6) Abnormal [facility] CenterUrinalysis w/Microscopic + Reflex to Culture 2023-03-30 08:43:51* Test Item Value Reference Range Interpretation Comme nts Color, UA (test code = 5778-6) Yellow Clarity, UA (test code = 5767-9) Clear Specific [place], UA (test code = 5811-5) 1.033 1.001-1.035 pH, UA (test code = 5803-2) 6.0 5.0-8.0 Protein, UA (test code = 39061-1) 30 mg/dL Negative A Glucose, UA (test code = 365) Negative Negative Ketones, UA (test code = 2514-8) Negative Negative Bilirubin, UA (test code = 64721-3) Negative Negative Blood, UA (test code = 79089-5) Small Negative A Nitrite, UA (test code = 5802-4) Negative Negative Leukocytes, UA (test code = 5799-2) Negative Negative Urobilinogen, UA (test code = 25424-6) 0.2 0.2-1.0 RBC, UA (test code = 74047-0) 51 See_Comment [Automated message] The system which [...] Occasional Squam Epithel, UA (test code = 54354-3) See_Comment [Automated message] The system which generated this result transmitted reference range: /HPF. The reference range was not used to interpret this result as normal/abnormal. Specimen Source (test code = 2795) LYNDSAY (test code = LYNDSAY) Asphalt Dauber ID - [auto]Asphalt Dauber ID - tech Lab Interpretation (test code = 62251-0) Abnormal [facility] CenterUrinalysis w/Microscopic + Reflex to Culture 2023-03-30 08:43:51* Test Item Value Reference Range Interpretation Comme nts Color, UA (test code = 5778-6) Yellow Clarity, UA (test code = 5767-9) Clear Specific [place], UA (test code = 5811-5) 1.033 1.001-1.035 pH, UA (test code = 5803-2) 6.0 5.0-8.0 Protein, UA (test code = 93496-5) 30 mg/dL Negative A Glucose, UA (test code = 365) Negative Negative Ketones, UA (test code = 2514-8) Negative Negative Bilirubin, UA (test code = 87150-4) Negative Negative Blood, UA (test code = 45727-6) Small Negative A Nitrite, UA (test code = 5802-4) Negative Negative Leukocytes, UA (test code = 5799-2) Negative Negative Urobilinogen, UA (test code = 46998-0) 0.2 0.2-1.0 RBC, UA (test code = 36176-7) 51 See_Comment [Automated message] The system which [...] Occasional Squam Epithel, UA (test code = 80029-4) See_Comment [Automated message] The system which generated this result transmitted reference range: /HPF. The reference range was not used to interpret this result as normal/abnormal. Specimen Source (test code = 2795) LYNDSAY (test code = LYNDSAY) Asphalt Dauber ID - [auto]Asphalt Dauber ID - tech Lab Interpretation (test code = 06543-8) Abnormal [facility] CenterUrinalysis w/Microscopic + Reflex to Culture 2023-03-30 08:43:51* Test Item Value Reference Range Interpretation Comme nts Color, UA (test code = 5778-6) Yellow Clarity, UA (test code = 5767-9) Clear Specific [place], UA (test code = 5811-5) 1.033 1.001-1.035 pH, UA (test code = 5803-2) 6.0 5.0-8.0 Protein, UA (test code = 63257-4) 30 mg/dL Negative A Glucose, UA (test code = 365) Negative Negative Ketones, UA (test code = 2514-8) Negative Negative Bilirubin, UA (test code = 13266-3) Negative Negative Blood, UA (test code = 73419-6) Small Negative A Nitrite, UA (test code = 5802-4) Negative Negative Leukocytes, UA (test code = 5799-2) Negative Negative Urobilinogen, UA (test code = 41642-1) 0.2 0.2-1.0 RBC, UA (test code = 92591-4) 51 See_Comment [Automated message] The system which [...] Occasional Squam Epithel, UA (test code = 62844-6) See_Comment [Automated message] The system which generated this result transmitted reference range: /HPF. The reference range was not used to interpret this result as normal/abnormal. Specimen Source (test code = 2795) LYNDSAY (test code = LYNDSAY) Asphalt Dauber ID - [auto]Asphalt Dauber ID - tech Lab Interpretation (test code = 28276-9) Abnormal [facility] CenterUrinalysis w/Microscopic + Reflex to Culture 2023-03-30 08:43:51* Test Item Value Reference Range Interpretation Comme nts Color, UA (test code = 5778-6) Yellow Clarity, UA (test code = 5767-9) Clear Specific [place], UA (test code = 5811-5) 1.033 1.001-1.035 pH, UA (test code = 5803-2) 6.0 5.0-8.0 Protein, UA (test code = 52724-4) 30 mg/dL Negative A Glucose, UA (test code = 365) Negative Negative Ketones, UA (test code = 2514-8) Negative Negative Bilirubin, UA (test code = 51569-7) Negative Negative Blood, UA (test code = 33479-1) Small Negative A Nitrite, UA (test code = 5802-4) Negative Negative Leukocytes, UA (test code = 5799-2) Negative Negative Urobilinogen, UA (test code = 95116-3) 0.2 0.2-1.0 RBC, UA (test code = 43776-1) 51 See_Comment [Automated message] The system which [...] Occasional Squam Epithel, UA (test code = 71488-5) See_Comment [Automated message] The system which generated this result transmitted reference range: /HPF. The reference range was not used to interpret this result as normal/abnormal. Specimen Source (test code = 2795) LYNDSAY (test code = LYNDSAY) Asphalt Dauber ID - [auto]Asphalt Dauber ID - tech Lab Interpretation (test code = 09633-2) Abnormal [facility] CenterUrinalysis w/Microscopic + Reflex to Culture 2023-03-30 08:43:51* Test Item Value Reference Range Interpretation Comme nts Color, UA (test code = 5778-6) Yellow Clarity, UA (test code = 5767-9) Clear Specific [place], UA (test code = 5811-5) 1.033 1.001-1.035 pH, UA (test code = 5803-2) 6.0 5.0-8.0 Protein, UA (test code = 52414-6) 30 mg/dL Negative A Glucose, UA (test code = 365) Negative Negative Ketones, UA (test code = 2514-8) Negative Negative Bilirubin, UA (test code = 22208-6) Negative Negative Blood, UA (test code = 03996-0) Small Negative A Nitrite, UA (test code = 5802-4) Negative Negative Leukocytes, UA (test code = 5799-2) Negative Negative Urobilinogen, UA (test code = 07375-7) 0.2 0.2-1.0 RBC, UA (test code = 89943-3) 51 See_Comment [Automated message] The system which [...] Occasional Squam Epithel, UA (test code = 08482-8) See_Comment [Automated message] The system which generated this result transmitted reference range: /HPF. The reference range was not used to interpret this result as normal/abnormal. Specimen Source (test code = 2795) LYNDSAY (test code = LYNDSAY) Asphalt Dauber ID - [auto]Asphalt Dauber ID - tech Lab Interpretation (test code = 54697-7) Abnormal [facility] CenterUrinalysis w/Microscopic + Reflex to Culture 2023-03-30 08:43:51* Test Item Value Reference Range Interpretation Comme nts Color, UA (test code = 5778-6) Yellow Clarity, UA (test code = 5767-9) Clear Specific [place], UA (test code = 5811-5) 1.033 1.001-1.035 pH, UA (test code = 5803-2) 6.0 5.0-8.0 Protein, UA (test code = 32949-5) 30 mg/dL Negative A Glucose, UA (test code = 365) Negative Negative Ketones, UA (test code = 2514-8) Negative Negative Bilirubin, UA (test code = 79220-6) Negative Negative Blood, UA (test code = 35105-4) Small Negative A Nitrite, UA (test code = 5802-4) Negative Negative Leukocytes, UA (test code = 5799-2) Negative Negative Urobilinogen, UA (test code = 78239-7) 0.2 0.2-1.0 RBC, UA (test code = 24406-9) 51 See_Comment [Automated message] The system which [...] Occasional Squam Epithel, UA (test code = 23301-4) See_Comment [Automated message] The system which generated this result transmitted reference range: /HPF. The reference range was not used to interpret this result as normal/abnormal. Specimen Source (test code = 2795) LYNDSAY (test code = LYNDSAY) Asphalt Dauber ID - [auto]Asphalt Dauber ID - tech Lab Interpretation (test code = 64383-9) Abnormal [facility]/Microscopic + Reflex to Culture 2023-03-30 08:43:51* Test Item Value Reference Range Interpretation Comme nts Color, UA (test code = 5778-6) Yellow Clarity, UA (test code = 5767-9) Clear Specific [place], UA (test code = 5811-5) 1.033 1.001-1.035 pH, UA (test code = 5803-2) 6.0 5.0-8.0 Protein, UA (test code = 90425-0) 30 mg/dL Negative A Glucose, UA (test code = 365) Negative Negative Ketones, UA (test code = 2514-8) Negative Negative Bilirubin, UA (test code = 16019-5) Negative Negative Blood, UA (test code = 44778-8) Small Negative A Nitrite, UA (test code = 5802-4) Negative Negative Leukocytes, UA (test code = 5799-2) Negative Negative Urobilinogen, UA (test code = 77101-9) 0.2 0.2-1.0 RBC, UA (test code = 55762-3) 51 See_Comment [Automated message] The system which [...] Occasional Squam Epithel, UA (test code = 76698-0) See_Comment [Automated message] The system which generated this result transmitted reference range: /HPF. The reference range was not used to interpret this result as normal/abnormal. Specimen Source (test code = 2795) LYNDSAY (test code = LYNDSAY) Asphalt Dauber ID - [auto]Asphalt Dauber ID - tech Lab Interpretation (test code = 67763-1) Abnormal [facility]/Microscopic + Reflex to Culture 2023-03-30 08:43:51* Test Item Value Reference Range Interpretation Comme nts Color, UA (test code = 5778-6) Yellow Clarity, UA (test code = 5767-9) Clear Specific [place], UA (test code = 5811-5) 1.033 1.001-1.035 pH, UA (test code = 5803-2) 6.0 5.0-8.0 Protein, UA (test code = 69536-5) 30 mg/dL Negative A Glucose, UA (test code = 365) Negative Negative Ketones, UA (test code = 2514-8) Negative Negative Bilirubin, UA (test code = 93388-1) Negative Negative Blood, UA (test code = 68943-3) Small Negative A Nitrite, UA (test code = 5802-4) Negative Negative Leukocytes, UA (test code = 5799-2) Negative Negative Urobilinogen, UA (test code = 41430-2) 0.2 0.2-1.0 RBC, UA (test code = 41625-0) 51 See_Comment [Automated message] The system which [...] Occasional Squam Epithel, UA (test code = 42306-4) See_Comment [Automated message] The system which generated this result transmitted reference range: /HPF. The reference range was not used to interpret this result as normal/abnormal. Specimen Source (test code = 2795) LYNDSAY (test code = LYNDSAY) Asphalt Dauber ID - [auto]Asphalt Dauber ID - tech Lab Interpretation (test code = 35597-7) [facility] 2023-03-30 08:43:51* Test Item Value Reference Range Interpretation Comme nts Color, UA (test code = 5778-6) Yellow Clarity, UA (test code = 5767-9) Clear Specific [place], UA (test code = 5811-5) 1.033 1.001-1.035 pH, UA (test code = 5803-2) 6.0 5.0-8.0 Protein, UA (test code = 80894-4) 30 mg/dL Negative A Glucose, UA (test code = 365) Negative Negative Ketones, UA (test code = 2514-8) Negative Negative Bilirubin, UA (test code = 16665-3) Negative Negative Blood, UA (test code = 72675-4) Small Negative A Nitrite, UA (test code = 5802-4) Negative Negative Leukocytes, UA (test code = 5799-2) Negative Negative Urobilinogen, UA (test code = 16400-7) 0.2 0.2-1.0 RBC, UA (test code = 67646-3) 51 See_Comment [Automated message] The system which [...] Occasional Squam Epithel, UA (test code = 77675-5) See_Comment [Automated message] The system which generated this result transmitted reference range: /HPF. The reference range was not used to interpret this result as normal/abnormal. Specimen Source (test code = 2795) LYNDSAY (test code = LYNDSAY) Asphalt Dauber ID - [auto]Asphalt Dauber ID - tech Lab Interpretation (test code = 75695-0) [facility] Culture 2023-03-30 08:43:51* Test Item Value Reference Range Interpretation Comme nts Color, UA (test code = 5778-6) Yellow Clarity, UA (test code = 5767-9) Clear Specific [place], UA (test code = 5811-5) 1.033 1.001-1.035 pH, UA (test code = 5803-2) 6.0 5.0-8.0 Protein, UA (test code = 75417-8) 30 mg/dL Negative A Glucose, UA (test code = 365) Negative Negative Ketones, UA (test code = 2514-8) Negative Negative Bilirubin, UA (test code = 87683-5) Negative Negative Blood, UA (test code = 64317-7) Small Negative A Nitrite, UA (test code = 5802-4) Negative Negative Leukocytes, UA (test code = 5799-2) Negative Negative Urobilinogen, UA (test code = 31990-0) 0.2 0.2-1.0 RBC, UA (test code = 62281-5) 51 See_Comment [Automated message] The system which [...] Occasional Squam Epithel, UA (test code = 74531-4) See_Comment [Automated message] The system which generated this result transmitted reference range: /HPF. The reference range was not used to interpret this result as normal/abnormal. Specimen Source (test code = 2795) LNYDSAY (test code = LYNDSAY) Asphalt Dauber ID - [auto]Asphalt Dauber ID - tech Lab Interpretation (test code = 21855-1) [facility] Reflex [facility] Culture 2023-03-30 08:43:51* Test Item Value Reference Range Interpretation Comme nts Color, UA (test code = 5778-6) Yellow Clarity, UA (test code = 5767-9) Clear Specific [place], UA (test code = 5811-5) 1.033 1.001-1.035 pH, UA (test code = 5803-2) 6.0 5.0-8.0 Protein, UA (test code = 84205-7) 30 mg/dL Negative A Glucose, UA (test code = 365) Negative Negative Ketones, UA (test code = 2514-8) Negative Negative Bilirubin, UA (test code = 97513-4) Negative Negative Blood, UA (test code = 31912-2) Small Negative A Nitrite, UA (test code = 5802-4) Negative Negative Leukocytes, UA (test code = 5799-2) Negative Negative Urobilinogen, UA (test code = 61004-3) 0.2 0.2-1.0 RBC, UA (test code = 98732-5) 51 See_Comment [Automated message] The system which [...] Occasional Squam Epithel, UA (test code = 32210-1) See_Comment [Automated message] The system which generated this result transmitted reference range: /HPF. The reference range was not used to interpret this result as normal/abnormal. Specimen Source (test code = 2795) LYNDSAY (test code = LYNDSAY) Asphalt Dauber ID - [auto]Asphalt Dauber ID - tech Lab Interpretation (test code = 50576-5) [facility] Reflex [facility] Culture 2023-03-30 08:43:51* Test Item Value Reference Range Interpretation Comme nts Color, UA (test code = 5778-6) Yellow Clarity, UA (test code = 5767-9) Clear Specific [place], UA (test code = 5811-5) 1.033 1.001-1.035 pH, UA (test code = 5803-2) 6.0 5.0-8.0 Protein, UA (test code = 94144-5) 30 mg/dL Negative A Glucose, UA (test code = 365) Negative Negative Ketones, UA (test code = 2514-8) Negative Negative Bilirubin, UA (test code = 22818-2) Negative Negative Blood, UA (test code = 85226-6) Small Negative A Nitrite, UA (test code = 5802-4) Negative Negative Leukocytes, UA (test code = 5799-2) Negative Negative Urobilinogen, UA (test code = 04128-1) 0.2 0.2-1.0 RBC, UA (test code = 07316-8) 51 See_Comment [Automated message] The system which [...] Occasional Squam Epithel, UA (test code = 39863-4) See_Comment [Automated message] The system which generated this result transmitted reference range: /HPF. The reference range was not used to interpret this result as normal/abnormal. Specimen Source (test code = 2795) LYNDSAY (test code = LYNDSAY) Asphalt Dauber ID - [auto]Asphalt Dauber ID - tech Lab Interpretation (test code = 48730-7) [facility] Reflex to Culture 2023-03-30 08:43:51* Test Item Value Reference Range Interpretation Comme nts Color, UA (test code = 5778-6) Yellow Clarity, UA (test code = 5767-9) Clear Specific [place], UA (test code = 5811-5) 1.033 1.001-1.035 pH, UA (test code = 5803-2) 6.0 5.0-8.0 Protein, UA (test code = 15124-9) 30 mg/dL Negative A Glucose, UA (test code = 365) Negative Negative Ketones, UA (test code = 2514-8) Negative Negative Bilirubin, UA (test code = 56004-9) Negative Negative Blood, UA (test code = 89061-6) Small Negative A Nitrite, UA (test code = 5802-4) Negative Negative Leukocytes, UA (test code = 5799-2) Negative Negative Urobilinogen, UA (test code = 64921-9) 0.2 0.2-1.0 RBC, UA (test code = 84481-5) 51 See_Comment [Automated message] The system which [...] Occasional Squam Epithel, UA (test code = 91249-5) See_Comment [Automated message] The system which generated this result transmitted reference range: /HPF. The reference range was not used to interpret this result as normal/abnormal. Specimen Source (test code = 2795) LYNDSAY (test code = LYNDSAY) Asphalt Dauber ID - [auto]Asphalt Dauber ID - tech Lab Interpretation (test code = 16503-0) [facility] Reflex [facility] Culture 2023-03-30 08:43:51* Test Item Value Reference Range Interpretation Comme nts Color, UA (test code = 5778-6) Yellow Clarity, UA (test code = 5767-9) Clear Specific [place], UA (test code = 5811-5) 1.033 1.001-1.035 pH, UA (test code = 5803-2) 6.0 5.0-8.0 Protein, UA (test code = 52818-2) 30 mg/dL Negative A Glucose, UA (test code = 365) Negative Negative Ketones, UA (test code = 2514-8) Negative Negative Bilirubin, UA (test code = 34230-6) Negative Negative Blood, UA (test code = 43303-2) Small Negative A Nitrite, UA (test code = 5802-4) Negative Negative Leukocytes, UA (test code = 5799-2) Negative Negative Urobilinogen, UA (test code = 92949-8) 0.2 0.2-1.0 RBC, UA (test code = 49535-6) 51 See_Comment [Automated message] The system which [...] Occasional Squam Epithel, UA (test code = 20319-4) See_Comment [Automated message] The system which generated this result transmitted reference range: /HPF. The reference range was not used to interpret this result as normal/abnormal. Specimen Source (test code = 2795) LYNDSAY (test code = LYNDSAY) Asphalt Dauber ID - [auto]Asphalt Dauber ID - tech Lab Interpretation (test code = 85034-5) [facility]normal [facility] Reflex [facility] Culture 2023-03-30 08:43:51* Test Item Value Reference Range Interpretation Comme nts Color, UA (test code = 5778-6) Yellow Clarity, UA (test code = 5767-9) Clear Specific [place], UA (test code = 5811-5) 1.033 1.001-1.035 pH, UA (test code = 5803-2) 6.0 5.0-8.0 Protein, UA (test code = 94080-6) 30 mg/dL Negative A Glucose, UA (test code = 365) Negative Negative Ketones, UA (test code = 2514-8) Negative Negative Bilirubin, UA (test code = 91633-7) Negative Negative Blood, UA (test code = 17581-8) Small Negative A Nitrite, UA (test code = 5802-4) Negative Negative Leukocytes, UA (test code = 5799-2) Negative Negative Urobilinogen, UA (test code = 73645-9) 0.2 0.2-1.0 RBC, UA (test code = 05267-4) 51 See_Comment [Automated message] The system which [...] Occasional Squam Epithel, UA (test code = 33752-4) See_Comment [Automated message] The system which generated this result transmitted reference range: /HPF. The reference range was not used to interpret this result as normal/abnormal. Specimen Source (test code = 2795) LYNDSAY (test code = LYNDSAY) Asphalt Dauber ID - [auto]Asphalt Dauber ID - Anteryon Lab Interpretation (test code = 94334-8) [facility]normal [facility] Reflex to Culture 2023-03-30 08:43:51* Test Item Value Reference Range Interpretation Comme nts Color, UA (test code = 5778-6) Yellow Clarity, UA (test code = 5767-9) Clear Specific [place], UA (test code = 5811-5) 1.033 1.001-1.035 pH, UA (test code = 5803-2) 6.0 5.0-8.0 Protein, UA (test code = 10879-4) 30 mg/dL Negative A Glucose, UA (test code = 365) Negative Negative Ketones, UA (test code = 2514-8) Negative Negative Bilirubin, UA (test code = 03771-4) Negative Negative Blood, UA (test code = 44876-1) Small Negative A Nitrite, UA (test code = 5802-4) Negative Negative Leukocytes, UA (test code = 5799-2) Negative Negative Urobilinogen, UA (test code = 11956-7) 0.2 0.2-1.0 RBC, UA (test code = 01883-4) 51 See_Comment [Automated message] The system which [...] Occasional Squam Epithel, UA (test code = 06921-9) See_Comment [Automated message] The system which generated this result transmitted reference range: /HPF. The reference range was not used to interpret this result as normal/abnormal. Specimen Source (test code = 2795) LYNDSAY (test code = LYNDSAY) Asphalt Dauber ID - [auto]Asphalt Dauber ID - tech Lab Interpretation (test code = 54929-2) [facility]normal [facility] Reflex to Culture 2023-03-30 08:43:51* Test Item Value Reference Range Interpretation Comme nts Color, UA (test code = 5778-6) Yellow Clarity, UA (test code = 5767-9) Clear Specific [place], UA (test code = 5811-5) 1.033 1.001-1.035 pH, UA (test code = 5803-2) 6.0 5.0-8.0 Protein, UA (test code = 99854-9) 30 mg/dL Negative A Glucose, UA (test code = 365) Negative Negative Ketones, UA (test code = 2514-8) Negative Negative Bilirubin, UA (test code = 75907-9) Negative Negative Blood, UA (test code = 14138-5) Small Negative A Nitrite, UA (test code = 5802-4) Negative Negative Leukocytes, UA (test code = 5799-2) Negative Negative Urobilinogen, UA (test code = 15423-8) 0.2 0.2-1.0 RBC, UA (test code = 45183-9) 51 See_Comment [Automated message] The system which [...] Occasional Squam Epithel, UA (test code = 55674-3) See_Comment [Automated message] The system which generated this result transmitted reference range: /HPF. The reference range was not used to interpret this result as normal/abnormal. Specimen Source (test code = 2795) LYNDSAY (test code = LYNDSAY) Asphalt Dauber ID - [auto]Asphalt Dauber ID - tech Lab Interpretation (test code = 73654-4) [facility]normal [facility] Reflex to Culture 2023-03-30 08:43:51* Test Item Value Reference Range Interpretation Comme nts Color, UA (test code = 5778-6) Yellow Clarity, UA (test code = 5767-9) Clear Specific [place], UA (test code = 5811-5) 1.033 1.001-1.035 pH, UA (test code = 5803-2) 6.0 5.0-8.0 Protein, UA (test code = 32867-4) 30 mg/dL Negative A Glucose, UA (test code = 365) Negative Negative Ketones, UA (test code = 2514-8) Negative Negative Bilirubin, UA (test code = 56517-5) Negative Negative Blood, UA (test code = 82903-8) Small Negative A Nitrite, UA (test code = 5802-4) Negative Negative Leukocytes, UA (test code = 5799-2) Negative Negative Urobilinogen, UA (test code = 49025-8) 0.2 0.2-1.0 RBC, UA (test code = 63320-5) 51 See_Comment [Automated message] The system which [...] Occasional Squam Epithel, UA (test code = 89925-0) See_Comment [Automated message] The system which generated this result transmitted reference range: /HPF. The reference range was not used to interpret this result as normal/abnormal. Specimen Source (test code = 2795) LYNDSAY (test code = LYNDSAY) Asphalt Dauber ID - [auto]Asphalt Dauber ID - tech Lab Interpretation (test code = 74493-9) [facility]normal [facility] Reflex to Culture 2023-03-30 08:43:51* Test Item Value Reference Range Interpretation Comme nts Color, UA (test code = 5778-6) Yellow Clarity, UA (test code = 5767-9) Clear Specific [place], UA (test code = 5811-5) 1.033 1.001-1.035 pH, UA (test code = 5803-2) 6.0 5.0-8.0 Protein, UA (test code = 44394-5) 30 mg/dL Negative A Glucose, UA (test code = 365) Negative Negative Ketones, UA (test code = 2514-8) Negative Negative Bilirubin, UA (test code = 07486-8) Negative Negative Blood, UA (test code = 92772-3) Small Negative A Nitrite, UA (test code = 5802-4) Negative Negative Leukocytes, UA (test code = 5799-2) Negative Negative Urobilinogen, UA (test code = 19793-7) 0.2 0.2-1.0 RBC, UA (test code = 07922-6) 51 See_Comment [Automated message] The system which [...] Occasional Squam Epithel, UA (test code = 93211-1) See_Comment [Automated message] The system which generated this result transmitted reference range: /HPF. The reference range was not used to interpret this result as normal/abnormal. Specimen Source (test code = 2795) LYNDSAY (test code = LYNDSAY) Asphalt Dauber ID - [auto]Asphalt Dauber ID - tech Lab Interpretation (test code = 84349-5) [facility]normal [facility]LEX URINE [id number] 08:43:51 * Test Item Value Reference Range [...] < /HPF SOURCE(BEAKER) (test code = 2795) Asphalt Dauber ID - [auto]Asphalt Dauber ID - techCOMPREHENSIVE METABOLIC [id number] 04:37:29* Test Item Value Reference Range Interpretation [...] GFR is not applicable for dialysis patients Asphalt Dauber ID - MATT BPT/KIGU1703-53-42 04:30:17* Test Item Value Reference Range Interpretation Comme nts PROTIME (BEAKER) (test code = 759) 13.8 seconds 11.9-14.2 INR (BEAKER) (test code = 370) 1.13 See_Comment [Automated Codelearna ge] The system which generated this result [...] code = 413) 0 /100 WBC 0-0 [id number]-[id number] 00:00:00Ordered by an unspecified provider.[facility]-LMWESPG1959-66-01 00:00:00Ordered by an unspecified provider. [facility]KG-RBLXVZM0410-79-80 00:00:00Ordered by an unspecified provider.[facility] CenterMuwcruVROKNNRXG3228-36-25 17:14:06* Test Item Value Reference Range Interpretation Comme nts MAGNESIUM (test code = 5347840119) 1.9 mg/dL 1.7-2.4 Lab Interpretation (test cod e = 20102-0) Normal [facility]OL[facility] PAN[facility] (98990)2022-12-11 15:16:25* Test Item Value Reference Range Interpretation Comme nts NA (test code = 6111519616) 139 mmol/L 135-145 K (test code = 3770338519) 3.5 mmol/L 3.5-5.0 CL (test code = 6041480182) 107 mmol/L 98-108 CO2 TOTAL (test code = 8584139376) 24 mmol/L 23-31 AGAP (test code = 9440100433) 8 2-16 BUN (test code = 8743937545) 9 mg/dL 7-23 GLUCOSE (test code = 4472498858) 129 mg/dL 70-110 H CREATININE (test code = 2084506524) 0.68 mg/dL 0.50-1.04 TOTAL BILI (test code = 0692294637) 0.5 mg/dL 0.1-1.1 CALCIUM (test code = 8417672410) 8.9 mg/dL 8.6-10.6 T PROTEIN (test code = 7159628248) 6.3 g/dL 6.3-8.2 ALBUMIN (test code = 6888874979) 3.8 g/dL 3.5-5.0 ALK PHOS (test code = 8368980202) 87 U/L 34-122 ALTv (test code = 1742-6) 24 U/L 5-35 AST(SGOT) (test code = 5095720771) 21 U/L 13-40 eGFR (test code = 3136069336) 91.6 mL/min/1.73m2 LYNDSAY (test code = LYNDSAY) [...] imaging tests). Lab Interpretation (test code = 99387-7) Abnormal [facility] HospitalTROPONIN [id number] 15:10:45* Test Item Value Reference Range Interpretation Comme nts TROPONIN I (test code = 2051256952) 0.015 ng/mL <=0.034 LYNDSAY (test code = [...] of biotin. Lab Interpretation (test code = 23860-5) Normal [facility] HospitalN-TERMINAL RPC-[id number] 15:07:48* Test Item Value Reference Range Interpretation Comme nts NT-proBNP (test code = 5427564233) 1460 pg/mL <=125 H LYNDSAY (test code = LYNDSAY) Biotin has been reported to cause a negative bias, interpret results relative to patient's use of biotin. Lab Interpretation (test code = 78143-2) Abnormal [facility] HospitalD-QDHJX1765-31-91 14:45:24* Test Item Value Reference Range Interpretation Comments D-DIMER (test code = 9713030771) 0.99 See_Comment H [Automated message] The system [...] a diagnosis. Lab Interpretation (test code = 31339-7) Abnormal [facility] WITH [id number] 14:14:48* Test Item Value Reference Range Interpretation Comme nts WBC (test code = 6690-2) 7.86 See_Comment [Automated Codelearna [employer]] The system which generated this result transmitted reference range: 4.30 - 11.10 10*3/?L. The reference range was not used to interpret this result as normal/abnormal. RBC (test code = 789-8) 5.13 See_Comment [Automated Codelearna [employer]] The system which generated this result transmitted [...] g/dL 31.6-35.1 L RDW-SD (test code = 15506-1) 47.8 fL 39.0-49.9 RDW-CV (test code = 788-0) 16.9 % 12.0-15.5 H PLT (test code = 777-3) 507 See_Comment H [Automated messa ge] The system which generated this result transmitted reference range: 166 - 358 10*3/?L. The reference range was not used to interpret this result as normal/abnormal. MPV (test code = 69276-6) 8.2 fL 9.5-12.9 L NRBC/100 WBC (test code = 8012317233) 0.0 See_Comment [Automated [employer] ssage] The system which generated this result transmitted reference range: 0.0 - 10.0 /100 WBCs. The reference range was not used to interpret this result as normal/abnormal. NRBC x10^3 (test code = 2154298157) See_Comment [Automated Codelearna ge] The system which generated this result transmitted reference range: 10*3/?L. The reference range was not used to interpret this result as normal/abnormal. GRAN MAT (NEUT) % (test code = 770-8) 64.5 % IMM GRAN % (test code = 6600912714) 0.30 % LYMPH % (test code = 736-9) 25.6 % MONO % (test code = 5905-5) 7.5 % EOS % (test code = 713-8) 1.0 % BASO % (test code = 706-2) 1.1 % GRAN MAT x10^3(ANC) (test code = 3560047858) 5.07 10*3/uL 1.88-7.09 IMM GRAN x10^3 (test code = 8805292230) 0.00-0.06 LYMPH x10^3 (test code = 731-0) 2.01 10*3/uL 1.32-3.29 MONO x10^3 (test code = 742-7) 0.59 10*3/uL 0.33-0.92 EOS x10^3 (test code = 711-2) 0.08 10*3/uL 0.03-0.39 BASO x10^3 (test code = 704-7) 0.09 10*3/uL 0.01-0.07 H Lab Interpretation (test code = 35399-3) Abnormal [facility] HospitalRPR2023-01-17 13:17:22* Test Item Value Reference Range Interpretation Comme nts RPR SCREEN ([employer]) (test co de = 420) Nonreactive Nonreactive HEMOGLOBIN [id number] 10:39:49* Test Item Value Reference Range Interpretation Comme nts HEMOGLOBIN A1C ELECTROPHORESIS (LATOYA) (test code = 3811) 5.8 % See_Comment [...] 5.7- 6.4% indicates increased risk for diabetes (prediabetes)."Asphalt Dauber ID - ADM VITAMIN [id number] 22:48:27* Test Item Value Reference Range Interpretation Comme nts VITAMIN B12 (LATOYA) (test c ode = 774) 227 pg/mL 213-816 Asphalt Dauber ID - MARCOTSH/FREE T4 IF [id number] 22:08:28* Test Item Value Reference Range Interpretation Comme nts THYROID STIMULATING HORMONE (LATOYA) (test code = 772) 3.309 uIU/mL 0.350-4.940 Asphalt Dauber ID - JSHIV-1 ANTIGEN WITH HIV-1/2 VMZHZHGH7431-03-07 22:08:28* Test Item Value Reference Range Interpretation Comme nts HIV-1 ANTIGEN WITH HIV 1\\T\\2 ANTIBODY (2) (HiveLiveBRIDGER) (test code = 2586) Nonreactive Nonreactive Asphalt Dauber ID - JSC-REACTIVE [id number] 21:49:44* Test Item Value Reference Range Interpretation Comme nts C-REACTIVE PROTEIN (BEAKER) (test code = 676) 0.35 mg/dL 0.00-0.50 Asphalt Dauber ID - JSCOMPREHENSIVE METABOLIC [id number] 21:49:43* Test Item Value Reference Range Interpretation [...] GFR is not applicable for dialysis patients Asphalt Dauber ID - JSLIPID [id number] 21:49:43* Test Item Value Reference Range Interpretation [...] Borderline 130-159 High 160-189 Very High >=190 Asphalt Dauber ID - JSCBC W/PLT COUNT & AUTO PHBDVRKNKXBY5024-12-34 21:34:03* Test Item Value Reference Range Interpretation [...] Interpretation Comme nts Height (test code = 4802793451) in Weight (test code = 8199821428) lbs Systolic BP (test code = 4087606690) mmHg Diastolic BP (test code = 8296167171) mmHg Heart Rate (test code = 8415307700) bpm BSA (test code = 4711532610) 2.00 m2 Ao root diam (test code = 0177490106) 3.20 cm Aortic root (test code = 9911753926) 3.2 cm Ao root annulus (test code = 3758177465) 3.2 cm LVOT diameter (test code = 9695039026) 1.99 cm LVOT area (test code = 2135506186) 3.10 cm2 LVIDD (test code = 1584060445) 5.10 cm Left Ventricular End Diastolic Volume by Teichholz Method (test code = 9739240) 123.0 mL IVS (test code = 3347362362) 1.34 cm Interventricular Septum Diastolic Thickness by 2D (test code = 6847962) 1.34 cm LVPWD (test code = 9233950037) 1.34 cm PW (test code = 2818784475) 1.34 cm 0.6-1.1 EF(Teich) (test code = 3514409416) 41.80 % LVIDS (test code = 8162529143) 4.00 cm Left Ventricular End Systolic Volume by Teichholz Method (test code = 6675017) 71.5 mL FS (test code = 2113409678) 21 % EF - 2D (test code = 04558749) 41.80 % LA size (test code = 4698467787) 4.6 cm Pulmonic Regurgitant End Max Velocity (test code = 3500788258) 119.4 cm/s LAV(MOD-sp4) (test code = 0297685077) 95.00 mL E wave decelartion time (test code = 3427711799) 0.15 s MV stenosis pressure 1/2 time (test code = 3041019042) 45.6 ms MV Peak A Evette (test code = 5990086819) 123.8 cm/s MV Peak E Evette (test code = 1889203858) 109.7 cm/s E/A ratio (test code = 2527318283) ratio MR max PG (test code = 5915775256) 87.20 mm[Hg] MR max evette (test code = 1455631840) 466.90 cm/s Mr max evette (test code = 3279902059) 466.9 m/s MV Prop V (test code = 2226024851) 51.00 cm/s MV E/e' septal (test code = 7241597798) 8.1 cm/s Tapse (test code = 1779980963) 2.21 cm LVOT stroke volume (test code = 9267629458) 49.80 cm3 LVOT peak evette (test code = 4087719055) 89.1 cm/s LVOT mn grad (test code = 6668539299) mmHg AV LVOT peak gradient (test code = 3750003850) mmHg LVOT peak VTI (test code = 0714829597) 16.0 cm LV V1 mean (test code = 0764979787) 64.30 cm/s Aortic valve mean velocity (test code = 7070215120) 133.8 cm/s Ao peak evette (test code = 2165638430) 175.3 cm/s Ao VTI (test code = 1322520187) 32.2 cm AV area by cont VTI (test code = 0358958045) 1.6 cm2 AV area peak evette (test code = 4901552965) 1.6 cm2 Ao max PG (test code = 4868237112) 12.30 mm[Hg] AV peak gradient (test code = 1445759335) mmHg AV valve area (test code = 7412867385) 1.55 cm2 AV mean gradient (test code = 2874109238) mmHg AV regurgitation pressure 1/2 time (test code = 4916972518) 358.5 ms AI dec slope (test code = 1810074486) 364.20 cm/s2 AI max evette (test code = 4635170319) 445.80 cm/s AI max PG (test code = 1580085352) 79.50 mm[Hg] Radiology Study observation (narrative) (test code = 76006-1) LYNDSAY (test code = LYNDSAY) ?Left?Ventricle: Left [...] Lumason ultrasound enhancing agent used. [facility] ([facility]ATED)2022-08-01 10:43:32* Test Item Value Reference Range Interpretation Comme [facility] POCT GLU (test code = 6019921888) 148 mg/dL 70-110 H Lab Interpretation (test cod e = 83688-3) Abnormal [facility] HospitalACTIVATED PARTIAL THRMPLAS [id number] 18:39:45* Test Item Value Reference Range Interpretation Comme [facility] APTT Patient (test code = 3173-2) See_Comment [Automated message] The system which generated this result transmitted reference range: 23 - 38 Seconds. The reference range was not used to interpret this result as normal/abnormal. LYNDSAY (test code = LYNDSAY) The [facility] patient population mean normal value for aPTT is 30 seconds. Lab Interpretation (test code = 38211-6) Normal [facility] HospitalPROT[facility]BIN TIME / [id number] 18:37:42* Test Item Value Reference Range Interpretation Comme [facility] PROTIME PATIENT (test code = 5964-2) See_Comment [Automated [employer]] The system which generated this result transmitted reference range: 12.0 - 14.7 Seconds. The reference range was not used to interpret this result as normal/abnormal. INR (test code = 6301-6) Normal INR <1.1; Warfarin Therapeutic range 2.0 to 3.0 or 2.5 to 3.5, depending upon the indications. Lab Interpretation (test code = 22587-5) Normal [facility] HospitalTROPONIN [id number] 18:32:01* Test Item Value Reference Range Interpretation Comments TROPONIN I (test code = 3714373053) 0.019 ng/mL See_Comment [Automated message] The system [...] of biotin. Lab Interpretation (test code = 12001-0) Normal [facility] HospitalN-TERMINAL [id number]-[id number] 18:29:01* Test Item Value Reference Range Interpretation Comme nts NT-proBNP (test code = 3341832536) 2770 pg/mL See_Comment H [Automated message] The system which generated this result transmitted reference range: <=125. The reference range was not used to interpret this result as normal/abnormal. LYNDSAY (test code = LYNDSAY) Biotin has been reported to cause a negative bias, interpret results relative to patient's use of biotin. Lab Interpretation (test code = 22139-2) Abnormal [facility] HospitalCOMP. METABOLIC PANEL (10664)2022-07-31 18:21:42* Test Item Value Reference Range Interpretation Comme nts NA (test code = 4947554998) 136 mmol/L 135-145 K (test code = 5379435395) 4.6 mmol/L 3.5-5.0 CL (test code = 9304659580) 104 mmol/L 98-108 CO2 TOTAL (test code = 4427433244) 26 mmol/L 23-31 AGAP (test code = 9527047283) 2-16 BUN (test code = 5406076598) 9 mg/dL 7-23 GLUCOSE (test code = 1846361594) 97 mg/dL 70-110 CREATININE (test code = 5126006803) 0.64 mg/dL 0.50-1.04 TOTAL BILI (test code = 6862598805) 0.5 mg/dL 0.1-1.1 CALCIUM (test code = 5668194712) 8.2 mg/dL 8.6-10.6 L T PROTEIN (test code = 8975320553) 6.5 g/dL 6.3-8.2 ALBUMIN (test code = 3349655781) 3.9 g/dL 3.5-5.0 ALK PHOS (test code = 8094435154) 93 U/L 34-122 ALTv (test code = 1742-6) 18 U/L 5-35 AST(SGOT) (test code = 7777773922) 19 U/L 13-40 eGFR (test code = 9253329034) mL/min/1.73m2 LYNDSAY (test code = LYNDSAY) Association [...] imaging tests). Lab Interpretation (test code = 98514-8) Abnormal [facility] HospitalLIPASE2023-01-12 18:21:01* Test Item Value Reference Range Interpretation Comme nts LIPASE (test code = 4890741875) 54 U/L 0-220 Lab Interpretation (test cod e = 15170-6) Normal [facility] HospitalCBC WITH [id number] 18:07:00* Test Item Value Reference Range Interpretation [...] g/dL 31.6-35.1 L RDW-SD (test code = 89612-7) 53.1 fL 39.0-49.9 H RDW-CV (test code = 788-0) 17.0 % 12.0-15.5 H PLT (test code = 777-3) See_Comment H [Automated messa ge] The system which generated this result transmitted reference range: 166 - 358 10*3/?L. The reference range was not used to interpret this result as normal/abnormal. MPV (test code = 77193-8) 8.2 fL 9.5-12.9 L NRBC/100 WBC (test code = 8309425329) See_Comment [Automated [employer] ssage] The system which generated this result transmitted reference range: 0.0 - 10.0 /100 WBCs. The reference range was not used to interpret this result as normal/abnormal. NRBC x10^3 (test code = 2400626263) See_Comment [Automated messa ge] The system which generated this result transmitted reference range: 10*3/?L. The reference range was not used to interpret this result as normal/abnormal. GRAN MAT (NEUT) % (test code = 770-8) 64.0 % IMM GRAN % (test code = 5791391964) 0.40 % LYMPH % (test code = 736-9) 27.3 % MONO % (test code = 5905-5) 6.5 % EOS % (test code = 713-8) 1.1 % BASO % (test code = 706-2) 0.7 % GRAN MAT x10^3(ANC) (test code = 4511399768) 5.46 10*3/uL 1.88-7.09 IMM GRAN x10^3 (test code = 9969578840) 0.03 10*3/uL 0.00-0.06 LYMPH x10^3 (test code = 731-0) 2.32 10*3/uL 1.32-3.29 MONO x10^3 (test code = 742-7) 0.55 10*3/uL 0.33-0.92 EOS x10^3 (test code = 711-2) 0.09 10*3/uL 0.03-0.39 BASO x10^3 (test code = 704-7) 0.06 10*3/uL 0.01-0.07 Lab Interpretation (test code = 62366-0) Abnormal [facility] METABOLIC PANEL (NA, K, CL, CO2, GLUCOSE, BUN, CREATININE, CA)2022-05-08 06:37:01* Test Item Value Reference Range Interpretation Comme nts NA (test code = 5706725882) 137 mmol/L 135-145 K (test code = 5673120943) 3.8 mmol/L 3.5-5 CL (test code = 1927706541) 103 mmol/L 98-108 CO2 TOTAL (test code = 2724013855) 24 mmol/L 23-31 AGAP (test code = 3696758525) 2-16 BUN (test code = 3591506008) 13 mg/dL 7-23 GLUCOSE (test code = 5943806622) 90 mg/dL 70-110 CREATININE (test code = 1158531796) 0.69 mg/dL 0.5-1.04 CALCIUM (test code = 1751849819) 8.5 mg/dL 8.6-10.6 L eGFR (test code = 6685565925) mL/min/1.73m2 LYNDSAY (test code = LYNDSAY) Association [...] imaging tests). Lab Interpretation (test code = 78711-5) Abnormal [facility] HospitalMAGNESIUM2022-10-20 06:37:01* Test Item Value Reference Range Interpretation Comme nts MAGNESIUM (test code = 3698284524) 2.1 mg/dL 1.7-2.4 Lab Interpretation (test cod e = 32267-9) Normal [facility] HospitalPHOSPHORUS2022-10-20 06:37:01* Test Item Value Reference Range Interpretation Comme nts PHOSPHORUS (test code = 1855512081) 4.7 mg/dL 2.5-5 Lab Interpretation (test cod e = 27312-5) Normal [facility] HospitalCB WITH [id number] 06:11:54* Test Item Value Reference Range Interpretation Comme nts WBC (test code = 6690-2) See_Comment [Automated [employer]] The system which generated this result transmitted reference range: 4.30 - 11.10 10*3/?L. The reference range was not used to interpret this result as normal/abnormal. RBC (test code = 789-8) See_Comment [Automated Codelearna ge] The system which generated this result [...] 32.4 g/dL 31.6-35.1 RDW-SD (test code = 17355-1) 51.0 fL 39-49.9 H RDW-CV (test code = 788-0) 16.5 % 12-15.5 H PLT (test code = 777-3) See_Comment H [Automated messa ge] The system which generated this result transmitted reference range: 166 - 358 10*3/?L. The reference range was not used to interpret this result as normal/abnormal. MPV (test code = 91010-6) 8.3 fL 9.5-12.9 L NRBC/100 WBC (test code = 8735676759) See_Comment [Automated [employer] ssage] The system which generated this result transmitted reference range: 0.0 - 10.0 /100 WBCs. The reference range was not used to interpret this result as normal/abnormal. NRBC x10^3 (test code = 0320267714) See_Comment [Automated messa ge] The system which generated this result transmitted reference range: 10*3/?L. The reference range was not used to interpret this result as normal/abnormal. GRAN MAT (NEUT) % (test code = 770-8) 64.5 % IMM GRAN % (test code = 0735801375) 0.50 % LYMPH % (test code = 736-9) 27.1 % MONO % (test code = 5905-5) 6.6 % EOS % (test code = 713-8) 0.6 % BASO % (test code = 706-2) 0.7 % GRAN MAT x10^3(ANC) (test code = 6030612548) 5.28 10*3/uL 1.88-7.09 IMM GRAN x10^3 (test code = 1320371392) 0.04 10*3/uL 0-0.06 LYMPH x10^3 (test code = 731-0) 2.22 10*3/uL 1.32-3.29 MONO x10^3 (test code = 742-7) 0.54 10*3/uL 0.33-0.92 EOS x10^3 (test code = 711-2) 0.05 10*3/uL 0.03-0.39 BASO x10^3 (test code = 704-7) 0.06 10*3/uL 0.01-0.07 Lab Interpretation (test code = 73252-6) Abnormal [facility] HospitalPOCT GLUCOSE (AUTOMATED)2022-05-07 01:18:10* Test Item Value Reference Range Interpretation Comme nts POCT GLU (test code = 4633108255) 120 mg/dL 70-110 H Lab Interpretation (test cod e = 71553-9) Abnormal [facility] HospitalType and Screen - ONCE [id number] 05:46:35* Test Item Value Reference Range Interpretation Comme nts ABO & RH (test code = 20) O POSITIVE Performed at [facility] Laboratory Services [facility] Blood [place] [id number] Free: [phone] No. [id number] IAT (test code = 1185) Negative Performed at [facility] Laboratory Services [facility] Blood [place] [address]Toll Free: [phone] No. [id number] [facility] HospitalBASIC METABOLIC PANEL (NA, K, CL, CO2, GLUCOSE, BUN, CREATININE, CA)2022-05-05 08:22:57* Test Item Value Reference Range Interpretation Comme nts NA (test code = 4016591187) 136 mmol/L 135-145 K (test code = 4104785362) 4.9 mmol/L 3.5-5 CL (test code = 3084245862) 108 mmol/L 98-108 CO2 TOTAL (test code = 4240153273) 22 mmol/L 23-31 L AGAP (test code = 8424940459) 2-16 BUN (test code = 2734638858) 12 mg/dL 7-23 GLUCOSE (test code = 4113333679) 155 mg/dL 70-110 H CREATININE (test code = 8111885811) 0.63 mg/dL 0.5-1.04 CALCIUM (test code = 5457773222) 8.4 mg/dL 8.6-10.6 L eGFR (test code = 2768459013) mL/min/1.73m2 LYNDASY (test code = LYNDSAY) Association of Glomerular [...] imaging tests). Lab Interpretation (test code = 66306-9) Abnormal [facility] HospitalPROTHROMBIN TIME / [id number] 08:22:37* Test Item Value Reference Range Interpretation Comme [facility] PROTIME PATIENT (test code = 5964-2) See_Comment [Automated Codelearna ge] The system which generated this result transmitted reference range: 10.1 - 12.6 Seconds. The reference range was not used to interpret this result as normal/abnormal. INR (test code = 6301-6) Normal INR <1.1; Warfarin Therapeutic range 2.0 to 3.0 or 2.5 to 3.5, depending upon the indications. Lab Interpretation (test code = 17284-2) Normal [facility] HospitalaPTT2022-10-17 08:22:37* Test Item Value Reference Range Interpretation Comme [facility] APTT Patient (test code = 3173-2) See_Comment [Automated [employer]learna [employer]] The system which generated this result transmitted reference range: 26 - 36 Seconds. The reference range was not used to interpret this result as normal/abnormal. Lab Interpretation (test code = 37900-8) Normal [facility] HospitalFIBRINOGEN2022-10-17 08:22:37* Test Item Value Reference Range Interpretation Comme [facility] Fibrinogen (test code = 5147373949) 294 mg/dL 167-453 Lab Interpretation (test cod e = 74408-7) Normal [facility] HospitalCB WITH [id number] 08:15:01* Test Item Value Reference Range Interpretation Comme [facility] WBC (test code = 6690-2) See_Comment [Automated Codelearna ge] The system which generated this result transmitted reference range: 4.30 - 11.10 10*3/?L. The reference range was not used to interpret this result as normal/abnormal. RBC (test code = 789-8) See_Comment [Automated Codelearna ge] The system which generated this result [...] g/dL 31.6-35.1 L RDW-SD (test code = 78269-8) 52.9 fL 39-49.9 H RDW-CV (test code = 788-0) 16.8 % 12-15.5 H PLT (test code = 777-3) See_Comment H [Automated messa ge] The system which generated this result transmitted reference range: 166 - 358 10*3/?L. The reference range was not used to interpret this result as normal/abnormal. MPV (test code = 63036-2) 8.3 fL 9.5-12.9 L NRBC/100 WBC (test code = 8980024937) See_Comment [Automated [employer] ssage] The system which generated this result transmitted reference range: 0.0 - 10.0 /100 WBCs. The reference range was not used to interpret this result as normal/abnormal. NRBC x10^3 (test code = 7984777382) See_Comment [Automated messa ge] The system which generated this result transmitted reference range: 10*3/?L. The reference range was not used to interpret this result as normal/abnormal. GRAN MAT (NEUT) % (test code = 770-8) 86.4 % IMM GRAN % (test code = 6321607185) 0.40 % LYMPH % (test code = 736-9) 11.7 % MONO % (test code = 5905-5) 1.1 % EOS % (test code = 713-8) 0.0 % BASO % (test code = 706-2) 0.4 % GRAN MAT x10^3(ANC) (test code = 5266506010) 6.36 10*3/uL 1.88-7.09 IMM GRAN x10^3 (test code = 0598011657) 0.03 10*3/uL 0-0.06 LYMPH x10^3 (test code = 731-0) 0.86 10*3/uL 1.32-3.29 L MONO x10^3 (test code = 742-7) 0.08 10*3/uL 0.33-0.92 L EOS x10^3 (test code = 711-2) 0.03-0.39 L BASO x10^3 (test code = 704-7) 0.03 10*3/uL 0.01-0.07 Lab Interpretation (test code = 53898-6) Abnormal [facility] HospitalVITAMIN D, [id number] 20:14:03* Test Item Value Reference Range Interpretation Comme [facility] VIT D 25OH (test code = 05536-1) 22 ng/mL 25-80 L LYNDSAY (test code = LYNDSAY) Deficiency: <20 ng/mLInsufficiency: 20-24 ng/mLOptimal: 25-80 ng/mL Lab Interpretation (test code = 91624-5) Abnormal [facility] HospitalBASI METABOLIC PANEL (NA, K, CL, CO2, GLUCOSE, BUN, CREATININE, CA)2022-04-15 11:27:57* Test Item Value Reference Range Interpretation Comme [facility] NA (test code = 4912215137) 138 mmol/L 135-145 K (test code = 8179379580) 3.9 mmol/L 3.5-5 CL (test code = 0011437272) 106 mmol/L 98-108 CO2 TOTAL (test code = 2742400733) 23 mmol/L 23-31 AGAP (test code = 1113304848) 2-16 BUN (test code = 0252888665) 10 mg/dL 7-23 GLUCOSE (test code = 4657174985) 91 mg/dL 70-110 CREATININE (test code = 7119897338) 0.65 mg/dL 0.5-1.04 CALCIUM (test code = 9708726076) 8.1 mg/dL 8.6-10.6 L eGFR (test code = 5779327391) mL/min/1.73m2 LYNDSAY (test code = LYNDSAY) Association [...] imaging tests). Lab Interpretation (test code = 76270-3) [facility]an[facility]hor[facility] (TTE) 2022-04-14 22:07:33* Test Item Value Reference Range Interpretation Comme nts Height (test code = 2132434421) in Weight (test code = 8453858739) lbs Systolic BP (test code = 5250863899) mmHg Diastolic BP (test code = 3039487112) mmHg Heart Rate (test code = 5361818197) bpm BSA (test code = 1243694769) 1.94 m2 TASV (test code = 2573499397) 15.5 cm/s LVIDD (test code = 3912171182) 6.00 cm Left Ventricular End Diastolic Volume by Teichholz Method (test code = 0755032) 183.0 mL IVS (test code = 4281099085) 1.09 cm Interventricular Septum Diastolic Thickness by 2D (test code = 9645688) 1.09 cm LVPWD (test code = 0922714913) 0.94 cm PW (test code = 2946200275) 0.94 cm 0.6-1.1 EF(Teich) (test code = 3042386189) 40.30 % LVIDS (test code = 0812982582) 4.80 cm Left Ventricular End Systolic Volume by Teichholz Method (test code = 0487342) 109.2 mL FS (test code = 1022348763) 20 % EF - 2D (test code = 43188762) 40.30 % LVOT diameter (test code = 1291171425) 2.05 cm LVOT area (test code = 4067572396) 3.30 cm2 Ao root diam (test code = 4805688715) 3.10 cm Aortic root (test code = 0826088413) 3.1 cm Ao root annulus (test code = 2272433713) 3.1 cm LA size (test code = 0613695398) 4.2 cm LAV(MOD-sp4) (test code = 6481441976) 64.90 mL MV Peak A Evette (test code = 3088261151) 115.7 cm/s E wave decelartion time (test code = 8500428949) 0.15 s MV Peak E Evette (test code = 3884203219) 106.2 cm/s E/A ratio (test code = 0881970526) ratio LVOT stroke volume (test code = 6068020172) 48.30 cm3 LVOT peak evette (test code = 9016609455) 78.4 cm/s LVOT mn grad (test code = 6117267414) mmHg AV LVOT peak gradient (test code = 1141551402) mmHg LVOT peak VTI (test code = 5526848522) 14.7 cm LV V1 mean (test code = 6184259772) 51.40 cm/s Ao peak evette (test code = 3712799981) 154.7 cm/s AV area peak evette (test code = 2302134826) 1.7 cm2 Ao max PG (test code = 9866265448) 9.60 mm[Hg] AV peak gradient (test code = 0545614196) mmHg AV regurgitation pressure 1/2 time (test code = 5489092071) 257.3 ms AI dec slope (test code = 7604104560) 498.10 cm/s2 AI max evette (test code = 1425919052) 437.60 cm/s AI max PG (test code = 9588712432) 77.80 mm[Hg] Tapse (test code = 0839181159) 2.19 cm LA Volume Index (BP) (test code = 3154951720) 32.0 mL/m2 LA volume (BP) (test code = 8448128152) 62.1 mL LAV(MOD-sp2) (test code = 6485108042) 52.70 mL A4C EF (test code = 4727061057) 44.80 % EF(sp4-el) (test code = 4401466325) 45.20 % SV(MOD-sp4) (test code = 0114803308) 71.20 mL SV(sp4-el) (test code = 1478844720) 73.90 mL LV Diastolic Volume (BP) (test code = 2080248641) 146.3 mL A2C EF (test code = 9532697512) 52.00 % EF(MOD-bp) (test code = 5559131729) 46.70 % EF(sp2-el) (test code = 8403890443) 52.40 % LV Systolic Volume (BP) (test code = 8620398737) 77.9 mL SV(MOD-bp) (test code = 5557918335) 68.40 mL SV(MOD-sp2) (test code = 6878571202) 69.20 mL EF (test code = 7969436374) Left Ventricular Stroke Volume by 2-D Biplane-MOD (test code = 9303046) 68.4 mL Radiology Study observation (narrative) (test code = 90540-6) LYNDSAY (test code = LYNDSAY) ?Left?Ventricle: Left [...] and saline contrast was performed. [facility] HospitalKEPPRA (LEVETIRACETAM)2022-04-14 16:48:36* Test Item Value Reference Range Interpretation Comme nts KEPPRA (test code = 9781724453) 12-46 L LYNDSAY (test code = LYNDSAY) Therapeutic range: 12-46 ?g/mL ? ?Toxic: Not well established.Test developed and characteristics determined by [facility] Laboratory Services. Lab Interpretation (test code = 54723-0) Abnormal [facility] Metabolic Panel (Na, K, Cl, CO2, Glucose, BUN, Creatinine, Ca)2022-04-14 10:50:11* Test Item Value Reference Range Interpretation Comme [facility] NA (test code = 8816260650) 136 mmol/L 135-145 K (test code = 0806716560) 3.8 mmol/L 3.5-5 CL (test code = 3272683303) 105 mmol/L 98-108 CO2 TOTAL (test code = 3252400568) 25 mmol/L 23-31 AGAP (test code = 3837568135) 2-16 BUN (test code = 0084857503) 9 mg/dL 7-23 GLUCOSE (test code = 8074205668) 101 mg/dL 70-110 CREATININE (test code = 1685365713) 0.66 mg/dL 0.5-1.04 CALCIUM (test code = 2167435410) 8.1 mg/dL 8.6-10.6 L eGFR (test code = 2591418426) mL/min/1.73m2 LYNDSAY (test code = LYNDSAY) Association [...] imaging tests). Lab Interpretation (test code = 55261-1) Abnormal [facility] HospitalMagensium, [id number] 10:50:11* Test Item Value Reference Range Interpretation Comme [facility] MAGNESIUM (test code = 7407792269) 1.9 mg/dL 1.7-2.4 Lab Interpretation (test cod e = 40079-3) Normal [facility] HospitalThyroid Stimulating Chweyrm3493-44-70 22:21:44 * Test Item Value Reference Range Interpretation Comme [facility] TSH (test code = 7954507603) See_Comment Biotin has been reported to cause a negative bias, interpret results relative to patient's use of biotin. [Automated message] The system which generated this result transmitted reference range: 0.45 - 4.70 mIU/L. The reference range was not used to interpret this result as normal/abnormal. Lab Interpretation (test code = 93337-6) Normal [facility] HospitalGLYCOSYLATED HEMOGLOBIN (A1C)2022-04-13 21:53:43* Test Item Value Reference Range Interpretation Comme nts HGB A1C (test code = 4548-4) 5.8 % 4-5.7 H LYNDSAY (test code = LYNDSAY) Reference RangesNormal: <5.7%Prediabetes: 5.7 - 6.4%Diabetes: > 6.5% Lab Interpretation (test code = 36178-2) Abnormal [facility] HospitalFASTING LIPID PANEL (55484)(TOTAL CHOLESTEROL, TRIGLYCERIDES, HDL)2022-04-13 21:34:53* Test Item Value Reference Range Interpretation Comme nts CHOL (test code = 6617356960) 201 mg/dL 120-200 H HDL (test code = 6030003511) 56 mg/dL See_Comment [Automated [employer]] The system which generated this result transmitted reference range: >=50. The reference range was not used to interpret this result as normal/abnormal. HDLC RATIO (test code = 1713166221) See_Comment [Automated [employer]] The system which generated this result transmitted reference range: <=4.5. The reference range was not used to interpret this result as normal/abnormal. TRIG (test code = 2607472001) 355 mg/dL 30-170 H LDL CHOL (test code = 07670-0) 74 mg/dL See_Comment [Automated [employer]learna [employer]] The system which generated this result transmitted reference range: <=160. The reference range was not used to interpret this result as normal/abnormal. VLDL (test code = 5135151848) 71 mg/dL 5-60 H Lab Interpretation (test code = 61342-8) Abnormal [facility] HospitalTroponin I - Code Bcwsqe5494-27-53 18:46:27* Test Item Value Reference Range Interpretation Comments TROPONIN I (test code = 1028412557) 0.013 ng/mL See_Comment [Automated message] The system [...] of biotin. Lab Interpretation (test code = 80053-8) Normal [facility] Metabolic Panel (NA, K, CL, CO2, Glucose, BUN, Creatinine, CA) - Code Rsctsf9202-95-69 18:35:07* Test Item Value Reference Range Interpretation Comme nts NA (test code = 4922357762) 136 mmol/L 135-145 K (test code = 6883858051) 4.3 mmol/L 3.5-5 CL (test code = 5566412162) 105 mmol/L 98-108 CO2 TOTAL (test code = 4273892210) 27 mmol/L 23-31 AGAP (test code = 7460592765) 2-16 BUN (test code = 4768878986) 8 mg/dL 7-23 GLUCOSE (test code = 0974030926) 130 mg/dL 70-110 H CREATININE (test code = 6160613212) 0.75 mg/dL 0.5-1.04 CALCIUM (test code = 4091147279) 8.5 mg/dL 8.6-10.6 L eGFR (test code = 4475181768) mL/min/1.73m2 LYNDSAY (test code = LYNDSAY) Association [...] imaging tests). Lab Interpretation (test code = 06047-6) Abnormal [facility] HospitalaPTT - Code Mvaikv9107-37-68 18:32:46* Test Item Value Reference Range Interpretation Comme [facility] APTT Patient (test code = 3173-2) See_Comment [Automated message] The system which generated this result transmitted reference range: 23 - 38 Seconds. The reference range was not used to interpret this result as normal/abnormal. LYNDSAY (test code = LYNDSAY) The [facility] patient population mean normal value for aPTT is 30 seconds. Lab Interpretation (test code = 98699-2) Normal [facility] HospitalProthrombin Time / INR - Code Irxnul8869-47-89 18:30:45* Test Item Value Reference Range Interpretation Comme [facility] PROTIME PATIENT (test code = 5964-2) See_Comment [Automated Codelearna ge] The system which generated this result transmitted reference range: 12.0 - 14.7 Seconds. The reference range was not used to interpret this result as normal/abnormal. INR (test code = 6301-6) Normal INR <1.1; Warfarin Therapeutic range 2.0 to 3.0 or 2.5 to 3.5, depending upon the indications. Lab Interpretation (test code = 60667-4) Normal [facility] HospitalCBC without Diff - Code Cljdcd0283-87-94 18:23:07* Test Item Value Reference Range Interpretation Comme [facility] WBC (test code = 6690-2) See_Comment [...] result as normal/abnormal. MPV (test code = 69691-1) 8.1 fL 9.5-12.9 L RDW-CV (test code = 788-0) 16.1 % 12-15.5 H RDW-SD (test code = 89118-5) 49.2 fL 39-49.9 NRBC x10^3 (test code = 9384799544) See_Comment [Automated messa ge] The system which generated this result transmitted reference range: 10*3/?L. The reference range was not used to interpret this result as normal/abnormal. NRBC/100 WBC (test code = 3767437382) See_Comment [Automated messa ge] The system which generated this result transmitted reference range: 0.0 - 10.0 /100 WBCs. The reference range was not used to interpret this result as normal/abnormal. IPF % (test code = 0078772305) Lab Interpretation (test code = 88968-0) Abnormal [facility] [id number] 21:06:40* Test Item Value Reference Range Interpretation Comments TROPONIN I (test code = 1977893356) 0.005 ng/mL See_Comment [Automated message] The system [...] of biotin. Lab Interpretation (test code = 66063-6) Normal [facility]. METABOLIC PANEL (23210)2021-11-23 20:55:42* Test Item Value Reference Range Interpretation Comme nts NA (test code = 5614748233) 137 mmol/L 135-145 K (test code = 2104835754) 4.3 mmol/L 3.5-5.0 CL (test code = 3486729255) 104 mmol/L 98-108 CO2 TOTAL (test code = 0804698122) 22 mmol/L 23-31 L AGAP (test code = 1114573343) 2-16 BUN (test code = 2577665853) 15 mg/dL 7-23 GLUCOSE (test code = 9340114171) 114 mg/dL 70-110 H CREATININE (test code = 8103907419) 0.68 mg/dL 0.50-1.04 TOTAL BILI (test code = 5060728607) 0.5 mg/dL 0.1-1.1 CALCIUM (test code = 5608531914) 9.1 mg/dL 8.6-10.6 T PROTEIN (test code = 2899228784) 7.3 g/dL 6.3-8.2 ALBUMIN (test code = 0344966416) 4.4 g/dL 3.5-5.0 ALK PHOS (test code = 0936305130) 243 U/L 34-122 H ALTv (test code = 1742-6) 24 U/L 5-35 AST(SGOT) (test code = 7732422949) 30 U/L 13-40 eGFR (test code = 8080221104) mL/min/1.73m2 LYNDSAY (test code = LYNDSAY) Association [...] imaging tests). Lab Interpretation (test code = 50093-5) [facility] 20[facility]55:22* Test Item Value Reference Range Interpretation Comme [facility] LIPASE (test code = 9102639351) 96 U/L 0-220 Lab Interpretation (test cod e = 16678-5) Normal [facility] [id number] 20:46:00* Test Item Value Reference Range Interpretation Comme nts POCT PREG (test code = 1605) negative On board controls acceptable with C Line (test code = 3574) present POCT PREG LOT # (test code = 3575) [id number] POCT PREG TEST DATE ( test code = 3576) 04/18/2023 Lab Interpretation (test cod e = 60326-8) Normal [facility] WITH [id number] 20:40:38* Test Item Value Reference Range Interpretation [...] 31.8 g/dL 31.6-35.1 RDW-SD (test code = 76951-5) 53.7 fL 39.0-49.9 H RDW-CV (test code = 788-0) 17.2 % 12.0-15.5 H PLT (test code = 777-3) See_Comment H [Automated messa ge] The system which generated this result transmitted reference range: 166 - 358 10*3/?L. The reference range was not used to interpret this result as normal/abnormal. MPV (test code = 60381-7) 8.5 fL 9.5-12.9 L NRBC/100 WBC (test code = 6965258175) See_Comment [Automated [employer] ssage] The system which generated this result transmitted reference range: 0.0 - 10.0 /100 WBCs. The reference range was not used to interpret this result as normal/abnormal. NRBC x10^3 (test code = 7485126555) <0.01 See_Comment [Automated messa ge] The system which generated this result transmitted reference range: 10*3/?L. The reference range was not used to interpret this result as normal/abnormal. GRAN MAT (NEUT) % (test code = 770-8) 53.7 % IMM GRAN % (test code = 9017313898) 0.90 % LYMPH % (test code = 736-9) 32.6 % MONO % (test code = 5905-5) 10.1 % EOS % (test code = 713-8) 1.5 % BASO % (test code = 706-2) 1.2 % GRAN MAT x10^3(ANC) (test code = 2830888490) 4.98 10*3/uL 1.88-7.09 IMM GRAN x10^3 (test code = 1984835110) 0.08 10*3/uL 0.00-0.06 H LYMPH x10^3 (test code = 731-0) 3.02 10*3/uL 1.32-3.29 MONO x10^3 (test code = 742-7) 0.94 10*3/uL 0.33-0.92 H EOS x10^3 (test code = 711-2) 0.14 10*3/uL 0.03-0.39 BASO x10^3 (test code = 704-7) 0.11 10*3/uL 0.01-0.07 H Lab Interpretation (test code = 82466-0) Abnormal [facility] GLU[facility]SE (AUTOMATED)2021-11-23 20:17:33* Test Item Value Reference Range Interpretation Comme nts POCT GLU (test code = 9201535137) 111 mg/dL 70-110 H Notified Provide r Lab Interpretation (test code = 58476-5) Abnormal [facility] TEST, THINPREP, [id number] 00:00:00 * Test Item Value Reference Range Interpretation Comme nts SOURCE: (test code = 8001) Endocervical SLIDES: (test code = 8011) 1 LMP: (test code = 8021) 06/03/2021 SPECIMEN ADEQUACY: (test code = 22349) (NOTE) INTERPRETATION: (test code = 29012) ASCUS/EPITH. ABNORMALITY; SEE BELOW ABRADING MACHINE TENDER: (test code = 8101) CHANA Thacker(ASCP)IAC PATHOLOGIST INTERPRETATION BY: (test code = 8122) Nahid Russell M.D. LOCATION: (test code = 84347) (NOTE) CPT: (test code = 8140) (NOTE) PAP TEST, THINPREP, [id number] 00:00:00* Test Item Value Reference Range Interpretation Comme nts SOURCE: (test code = 8001) Endocervical SLIDES: (test code = 8011) 1 LMP: (test code = 8021) 06/03/2021 SPECIMEN ADEQUACY: (test code = 48910) (NOTE) INTERPRETATION: (test code = 05300) ASCUS/EPITH. ABNORMALITY; SEE BELOW ABRADING MACHINE TENDER: (test code = 8101) CHANA Thacker(ASCP)[facility] PATHOLOGIST INTERPRETATION BY: (test code = 8122) Nahid Russell M.D. LOCATION: (test code = 83853) (NOTE) CPT: (test code = 8140) (NOTE) PAP TEST, THINPREP, [id number] 00:00:00* Test Item Value Reference Range Interpretation Comme nts SOURCE: (test code = 8001) Endocervical SLIDES: (test code = 8011) 1 LMP: (test code = 8021) 06/03/2021 SPECIMEN ADEQUACY: (test code = 79717) (NOTE) INTERPRETATION: (test code = 02628) ASCUS/EPITH. ABNORMALITY; SEE BELOW ABRADING MACHINE TENDER: (test code = 8101) CHANA Thacker(ASCP)[facility] PATHOLOGIST INTERPRETATION BY: (test code = 8122) Nahid Russell M.D. LOCATION: (test code = 78282) (NOTE) CPT: (test code = 8140) (NOTE) PAP TEST, THINPREP, [id number] 00:00:00* Test Item Value Reference Range Interpretation Comme nts SOURCE: (test code = 8001) Endocervical SLIDES: (test code = 8011) 1 LMP: (test code = 8021) 06/03/2021 SPECIMEN ADEQUACY: (test code = 06159) (NOTE) INTERPRETATION: (test code = 20015) ASCUS/EPITH. ABNORMALITY; SEE BELOW ABRADING MACHINE TENDER: (test code = 8101) CHANA Thacker(ASCP)IAC PATHOLOGIST INTERPRETATION BY: (test code = 8122) Nahid Russell M.D. LOCATION: (test code = 09865) (NOTE) CPT: (test code = 8140) (NOTE) HPV HIGH RISK WITH GENOTYPE, [id number] 00:00:00* Test Item Value Reference Range Interpretation Comme [facility] HPV HIGH RISK INTERP (test c ode = 33009) POSITIVE HPV 16 (test code = 39586) POSITIVE HPV 18 (test code = 56496) NEGATIVE HPV, HR, OTHER GENOTYPES (te st code = 63796) POSITIVE HPV HIGH RISK WITH GENOTYPE, [id number] 00:00:00* Test Item Value Reference Range Interpretation Comme nts HPV HIGH RISK INTERP (test c ode = 63784) POSITIVE HPV 16 (test code = 66172) POSITIVE HPV 18 (test code = 61751) NEGATIVE HPV, HR, OTHER GENOTYPES (te st code = 72465) POSITIVE HPV HIGH RISK WITH GENOTYPE, [id number] 00:00:00* Test Item Value Reference Range Interpretation Comme [facility] HPV HIGH RISK INTERP (test c ode = 80852) POSITIVE HPV 16 (test code = 51535) POSITIVE HPV 18 (test code = 56943) NEGATIVE HPV, HR, OTHER GENOTYPES (te st code = 57937) POSITIVE HPV HIGH RISK WITH GENOTYPE, [id number] 00:00:00* Test Item Value Reference Range Interpretation Comme nts HPV HIGH RISK INTERP (test c ode = 63241) POSITIVE HPV 16 (test code = 70771) POSITIVE HPV 18 (test code = 92732) NEGATIVE HPV, HR, OTHER GENOTYPES (te st code = 00846) POSITIVE [id number] 03:22:48* Test Item Value Reference Range Interpretation Comme nts APPEARANCE (test code = 2273656060) Hazy Clear A COLOR (test code = 7957071350) Yellow Yellow PH (test code = 7130870518) 4.8-8.0 SP GRAVITY (test code = 2270889268) 1.003-1.030 GLU U QUAL (test code = 2378500342) Normal Normal BLOOD (test code = 9476229095) Negative Negative Interference fro m ascorbic acid may cause false negative results. KETONES (test code = 4439619944) 5 mg/dL Negative A PROTEIN (test code = 2887-8) Negative Negative UROBILIN (test code = 5611965516) 4.0 mg/dL Normal A BILIRUBIN (test code = 9424381308) Negative Negative NITRITE (test code = 7774579661) Negative Negative LEUK GRUPO (test code = 4456145611) Negative Negative RBC/HPF (test code = 2401675761) See_Comment [Automated messa ge] The system which generated this result transmitted reference range: 0 - 3 HPF. The reference range was not used to interpret this result as normal/abnormal. WBC/HPF (test code = 4084863585) <1 See_Comment [Automated messa ge] The system which generated this result transmitted reference range: 0 - 5 HPF. The reference range was not used to interpret this result as normal/abnormal. BACTERIA (test code = 0246430881) Few Negative A SQ EPITH (test code = 3324776695) HPF Lab Interpretation (test code = 63786-7) [facility]normal [facility]URINALYSIS2021-08-29 03:22:48* Test Item Value Reference Range Interpretation Comme nts APPEARANCE (test code = 3872615538) Hazy Clear A COLOR (test code = 5713409777) Yellow Yellow PH (test code = 9629977113) 4.8-8.0 SP GRAVITY (test code = 7823054928) 1.003-1.030 GLU U QUAL (test code = 7622060620) Normal Normal BLOOD (test code = 5727152700) Negative Negative KETONES (test code = 2028422066) 5 mg/dL Negative A PROTEIN (test code = 2887-8) Negative Negative UROBILIN (test code = 0796272783) 4.0 mg/dL Normal A BILIRUBIN (test code = 4132445843) Negative Negative NITRITE (test code = 2085634109) Negative Negative LEUK GRUPO (test code = 0779010841) Negative Negative RBC/HPF (test code = 8817788949) See_Comment [Automated messa ge] The system which generated this result transmitted reference range: 0 - 3 HPF. The reference range was not used to interpret this result as normal/abnormal. WBC/HPF (test code = 2082811775) <1 See_Comment [Automated messa ge] The system which generated this result transmitted reference range: 0 - 5 HPF. The reference range was not used to interpret this result as normal/abnormal. BACTERIA (test code = 5526646475) Few Negative A SQ EPITH (test code = 2638648572) HPF Lab Interpretation (test code = 19839-4) Abnormal [facility] [id number] 02:45:00* Test Item Value Reference Range Interpretation Comments TROPONIN I (test code = 2377447668) 0.002 ng/mL See_Comment [Automated message] The system [...] of biotin. Lab Interpretation (test code = 61597-4) Normal [facility] [id number] 02:45:00* Test Item Value Reference Range Interpretation Comme nts TROPONIN I (test code = 3548966485) 0.002 ng/mL See_Comment [Automated messa ge] The system which generated this result transmitted reference range: <=0.034. The reference range was not used to interpret this result as normal/abnormal. LYNDSAY (test code = LYNDSAY) Lab Interpretation (test code = 27599-5) Normal [facility] Hospital[facility]-TERMINAL [id number] 02:41:57* Test Item Value Reference Range Interpretation Comme nts NT-proBNP (test code = 1222898741) 169 pg/mL See_Comment H [Automated message] The system which generated this result transmitted reference range: <=125. The reference range was not used to interpret this result as normal/abnormal. LYNDSAY (test code = LYNDSAY) Biotin has been reported to cause a negative bias, interpret results relative to patient's use of biotin. Lab Interpretation (test code = 59762-1) Abnormal [facility]-TERMINAL [id number] 02:41:57* Test Item Value Reference Range Interpretation Comme nts NT-proBNP (test code = 3993238709) 169 pg/mL See_Comment H [Automated Codelearna ge] The system which generated this result transmitted reference range: <=125. The reference range was not used to interpret this result as normal/abnormal. LYNDSAY (test code = LYNDSAY) Lab Interpretation (test code = 79969-5) Abnormal [facility] HospitalCOMP. METABOLIC PANEL (40097)2021-03-17 02:09:13* Test Item Value Reference Range Interpretation Comme nts NA (test code = 5576450445) 137 mmol/L 135-145 K (test code = 1660897777) 4.2 mmol/L 3.5-5.0 CL (test code = 3526206287) 102 mmol/L 98-108 CO2 TOTAL (test code = 0276200945) 25 mmol/L 23-31 AGAP (test code = 1810036449) 2-16 BUN (test code = 0644391695) 18 mg/dL 7-23 GLUCOSE (test code = 4272920857) 144 mg/dL 70-110 H CREATININE (test code = 1468013162) 0.77 mg/dL 0.50-1.04 TOTAL BILI (test code = 6711597193) 0.4 mg/dL 0.1-1.1 CALCIUM (test code = 8202180506) 8.9 mg/dL 8.6-10.6 T PROTEIN (test code = 0951693817) 6.8 g/dL 6.3-8.2 ALBUMIN (test code = 1473898329) 3.9 g/dL 3.5-5.0 ALK PHOS (test code = 4749458249) 84 U/L 34-122 ALTv (test code = 1742-6) 13 U/L 5-35 AST(SGOT) (test code = 9071993418) 17 U/L 13-40 eGFR (test code = 8093421365) mL/min/1.73m2 LYNDSAY (test code = LYNDSAY) Association [...] imaging tests). Lab Interpretation (test code = 58556-7) Abnormal [facility]. METABOLIC PANEL (53895)2021-03-17 02:09:13* Test Item Value Reference Range Interpretation Comme nts NA (test code = 0711441008) 137 mmol/L 135-145 K (test code = 0292000815) 4.2 mmol/L 3.5-5.0 CL (test code = 8164074067) 102 mmol/L 98-108 CO2 TOTAL (test code = 2374525371) 25 mmol/L 23-31 AGAP (test code = 9076907870) 2-16 BUN (test code = 7206126406) 18 mg/dL 7-23 GLUCOSE (test code = 1687351790) 144 mg/dL 70-110 H CREATININE (test code = 5965332532) 0.77 mg/dL 0.50-1.04 TOTAL BILI (test code = 9981427841) 0.4 mg/dL 0.1-1.1 CALCIUM (test code = 3780429345) 8.9 mg/dL 8.6-10.6 T PROTEIN (test code = 4779181673) 6.8 g/dL 6.3-8.2 ALBUMIN (test code = 5446710252) 3.9 g/dL 3.5-5.0 ALK PHOS (test code = 2378489748) 84 U/L 34-122 ALTv (test code = 1742-6) 13 U/L 5-35 AST(SGOT) (test code = 0976951950) 17 U/L 13-40 eGFR (test code = 5092877732) mL/min/1.73m2 LYNDSAY (test code = LYNDSAY) Lab Interpretation (test cod e = 41898-5) Abnormal [facility] WITH [id number] 01:56:33* Test Item Value Reference Range Interpretation [...] g/dL 31.6-35.1 L RDW-SD (test code = 50177-5) 55.5 fL 39.0-49.9 H RDW-CV (test code = 788-0) 18.9 % 12.0-15.5 H PLT (test code = 777-3) See_Comment H [Automated messa ge] The system which generated this result transmitted reference range: 166 - 358 10*3/?L. The reference range was not used to interpret this result as normal/abnormal. MPV (test code = 58594-2) 8.2 fL 9.5-12.9 L NRBC/100 WBC (test code = 0372840748) See_Comment [Automated [employer] ssage] The system which generated this result transmitted reference range: 0.0 - 10.0 /100 WBCs. The reference range was not used to interpret this result as normal/abnormal. NRBC x10^3 (test code = 1491492866) <0.01 See_Comment [Automated messa ge] The system which generated this result transmitted reference range: 10*3/?L. The reference range was not used to interpret this result as normal/abnormal. GRAN MAT (NEUT) % (test code = 770-8) 61.7 % IMM GRAN % (test code = 8767294680) 0.80 % LYMPH % (test code = 736-9) 28.5 % MONO % (test code = 5905-5) 6.3 % EOS % (test code = 713-8) 1.8 % BASO % (test code = 706-2) 0.9 % GRAN MAT x10^3(ANC) (test code = 3467398560) 7.31 10*3/uL 1.88-7.09 H IMM GRAN x10^3 (test code = 7565161346) 0.09 10*3/uL 0.00-0.06 H LYMPH x10^3 (test code = 731-0) 3.38 10*3/uL 1.32-3.29 H MONO x10^3 (test code = 742-7) 0.75 10*3/uL 0.33-0.92 EOS x10^3 (test code = 711-2) 0.21 10*3/uL 0.03-0.39 BASO x10^3 (test code = 704-7) 0.11 10*3/uL 0.01-0.07 H Lab Interpretation (test code = 93245-8) Abnormal [facility] WITH [id number] 01:56:33* Test Item Value Reference Range Interpretation [...] g/dL 31.6-35.1 L RDW-SD (test code = 55356-0) 55.5 fL 39.0-49.9 H RDW-CV (test code = 788-0) 18.9 % 12.0-15.5 H PLT (test code = 777-3) See_Comment H [Automated messa ge] The system which generated this result transmitted reference range: 166 - 358 10*3/?L. The reference range was not used to interpret this result as normal/abnormal. MPV (test code = 17355-9) 8.2 fL 9.5-12.9 L NRBC/100 WBC (test code = 7976428270) See_Comment [Automated [employer] ssage] The system which generated this result transmitted reference range: 0.0 - 10.0 /100 WBCs. The reference range was not used to interpret this result as normal/abnormal. NRBC x10^3 (test code = 2572765291) <0.01 See_Comment [Automated messa ge] The system which generated this result transmitted reference range: 10*3/?L. The reference range was not used to interpret this result as normal/abnormal. GRAN MAT (NEUT) % (test code = 770-8) 61.7 % IMM GRAN % (test code = 5433311785) 0.80 % LYMPH % (test code = 736-9) 28.5 % MONO % (test code = 5905-5) 6.3 % EOS % (test code = 713-8) 1.8 % BASO % (test code = 706-2) 0.9 % GRAN MAT x10^3(ANC) (test code = 8025637013) 7.31 10*3/uL 1.88-7.09 H IMM GRAN x10^3 (test code = 9401629246) 0.09 10*3/uL 0.00-0.06 H LYMPH x10^3 (test code = 731-0) 3.38 10*3/uL 1.32-3.29 H MONO x10^3 (test code = 742-7) 0.75 10*3/uL 0.33-0.92 EOS x10^3 (test code = 711-2) 0.21 10*3/uL 0.03-0.39 BASO x10^3 (test code = 704-7) 0.11 10*3/uL 0.01-0.07 H Lab Interpretation (test code = 43725-1) Abnormal [facility] Hospital[facility]OVID[facility] (ID NOW RAPID TESTING)2021-03-17 01:38:12* Test Item Value Reference Range Interpretation Comme nts SARS-CoV-2 Rapid ID NOW (test code = 00647-8) Not Detected Not Detected LYNDSAY (test code = LYNDSAY) ID NOW COVID-19 As say is an isothermal nucleic acid amplification test intended for the qualitative detection of nucleic acid from SARS-CoV-2 viral RNA in nasopharyngeal ([employer]) specimens. It is used under Emergency [...] clinically indicated. Lab Interpretation (test code = 56327-4) Normal [facility] (ID NOW RAPID TESTING)2021-03-17 01:38:12* Test Item Value Reference Range Interpretation Comme nts SARS-CoV-2 Rapid ID NOW (raisa t code = 35804-7) Not Detected Not Detected LYNDSAY (test code = LYNDSAY) Lab Interpretation (test cod e = 98952-7) Normal [facility] (ID NOW RAPID TESTING)2021-02-19 17:42:45* Test Item Value Reference Range Interpretation Comme nts SARS-CoV-2 Rapid ID NOW (test code = 60142-2) Not Detected Not Detected LYNDSAY (test code = LYNDSAY) ID NOW COVID-19 As say is an isothermal nucleic acid amplification test intended for the qualitative detection of nucleic acid from SARS-CoV-2 viral RNA in nasopharyngeal ([employer]EL[employer]) specimens. It is used under Emergency [...] clinically indicated. Lab Interpretation (test code = 95385-0) Normal [facility] HospitalCT ABDOMEN PELVIS W [id number] 17:24:55Thickening of the gastric antrum and duodenal bulb could be fromunderdistention, the differential would include sequela of peptic ulcerdisease. No findings of ulcer perforation. Otherwise, no acute intra- abdominal or pelvic abnormality. Stable thickening and nodularity of the left adrenal gland. RL: [id number] Patient name: HEATHER ONTIVEROSB: 1970 51 years EXAMINATION: CT ABDOMEN [...] 02/19/2021 12:26 PM CDT Patient name: HEATHER TURNERDOB: 1970 51 years EXAMINATION: CT ABDOMEN [...] Electronicallysigned by James Freeman at 02/19/2021 12:24 PMUnFormerly [facility] HospitalUrinalysis2021-08-03 17:03:40* Test Item Value Reference Range Interpretation Comme nts APPEARANCE (test code = 0282387606) Hazy Clear A COLOR (test code = 7717659941) Mabel Yellow A PH (test code = 2425958796) 4.8-8.0 SP GRAVITY (test code = 5484881413) 1.003-1.030 H GLU U QUAL (test code = 4323570461) Normal Normal BLOOD (test code = 8435878410) Negative Negative KETONES (test code = 9255433495) 5 mg/dL Negative A PROTEIN (test code = 2887-8) 30 mg/dL Negative A UROBILIN (test code = 0016238647) 4.0 mg/dL Normal A BILIRUBIN (test code = 3279323674) 4 mg/dL Negative A NITRITE (test code = 2054550451) Negative Negative LEUK GRUPO (test code = 4955068686) Negative Negative RBC/HPF (test code = 2288447412) See_Comment H [Automated [employer]] The system which generated this result transmitted reference range: 0 - 3 HPF. The reference range was not used to interpret this result as normal/abnormal. WBC/HPF (test code = 1553674477) See_Comment H [Automated [employer]le[employer]] The system which generated this result transmitted reference range: 0 - 5 HPF. The reference range was not used to interpret this result as normal/abnormal. BACTERIA (test code = 5940466515) Few Negative A MUCOUS (test code = 1221120805) Moderate Negative LPF A SQ EPITH (test code = 1409123096) HPF CA OXALATE (test code = 9582743488) See_Comment H [Automated Codelearna ge] The system which generated this result transmitted reference range: <=1 HPF. The reference range was not used to interpret this result as normal/abnormal. Ictotest (test code = 3411136995) Negative Lab Interpretation (test code = 89481-0) Abnormal [facility] HospitalComplete Metabolic [id number] 16:34:55* Test Item Value Reference Range Interpretation Comme nts NA (test code = 6362248696) 139 mmol/L 135-145 K (test code = 0951338981) 4.3 mmol/L 3.5-5.0 CL (test code = 1834860595) 105 mmol/L 98-108 CO2 TOTAL (test code = 1375249256) 26 mmol/L 23-31 AGAP (test code = 3872280879) 2-16 BUN (test code = 8316844140) 11 mg/dL 7-23 GLUCOSE (test code = 9748610993) 95 mg/dL 70-110 CREATININE (test code = 6247943963) 0.70 mg/dL 0.50-1.04 TOTAL BILI (test code = 9387765014) 0.6 mg/dL 0.1-1.1 CALCIUM (test code = 0125153322) 8.9 mg/dL 8.6-10.6 T PROTEIN (test code = 2020774016) 7.7 g/dL 6.3-8.2 ALBUMIN (test code = 0680741028) 4.1 g/dL 3.5-5.0 ALK PHOS (test code = 5120528096) 79 U/L 34-122 ALTv (test code = 1742-6) 10 U/L 5-35 AST(SGOT) (test code = 0121781417) 22 U/L 13-40 eGFR (test code = 1002112010) mL/min/1.73m2 LYNDSAY (test code = LYNDSAY) Association [...] or abnormalities in imaging tests). [facility] HospitalLipase, [id number] 16:34:14* Test Item Value Reference Range Interpretation Comme nts LIPASE (test code = 9501355321) 45 U/L 0-220 Lab Interpretation (test cod e = 25277-7) Normal [facility] HospitalCBC with Cnfthuwxfqwi2869-34-81 16:21:12* Test Item Value Reference Range Interpretation Comme nts WBC (test code = 6690-2) See_Comment [Automated [employer]] The system which generated this result transmitted reference range: 4.30 - 11.10 10*3/?L. The reference range was not used to interpret this result as normal/abnormal. RBC (test code = 789-8) See_Comment [Automated [employer]] The system which generated this result transmitted [...] g/dL 31.6-35.1 L RDW-SD (test code = 41133-9) 54.4 fL 39.0-49.9 H RDW-CV (test code = 788-0) 18.3 % 12.0-15.5 H PLT (test code = 777-3) See_Comment H [Automated messa ge] The system which generated this result transmitted reference range: 166 - 358 10*3/?L. The reference range was not used to interpret this result as normal/abnormal. MPV (test code = 27159-3) 8.5 fL 9.5-12.9 L NRBC/100 WBC (test code = 2470808727) See_Comment [Automated [employer] ssage] The system which generated this result transmitted reference range: 0.0 - 10.0 /100 WBCs. The reference range was not used to interpret this result as normal/abnormal. NRBC x10^3 (test code = 7485513525) <0.01 See_Comment [Automated messa ge] The system which generated this result transmitted reference range: 10*3/?L. The reference range was not used to interpret this result as normal/abnormal. GRAN MAT (NEUT) % (test code = 770-8) 78.3 % IMM GRAN % (test code = 0001316082) 0.40 % LYMPH % (test code = 736-9) 15.4 % MONO % (test code = 5905-5) 4.8 % EOS % (test code = 713-8) 0.1 % BASO % (test code = 706-2) 1.0 % GRAN MAT x10^3(ANC) (test code = 5650900953) 7.15 10*3/uL 1.88-7.09 H IMM GRAN x10^3 (test code = 4060665672) 0.04 10*3/uL 0.00-0.06 LYMPH x10^3 (test code = 731-0) 1.41 10*3/uL 1.32-3.29 MONO x10^3 (test code = 742-7) 0.44 10*3/uL 0.33-0.92 EOS x10^3 (test code = 711-2) <0.03 0.03-0.39 L BASO x10^3 (test code = 704-7) 0.09 10*3/uL 0.01-0.07 H Lab Interpretation (test code = 46735-4) [facility]normal [facility]
[2023-08-06 10:49] LABS: Hematocrit 38.5 % (36.0-45.0); Lymphocytes % 24.1 % (15.3-44.8); MCV 87.3 fL (80-100); MPV 6.4 fL (7.6-11.3); Platelets 469 thou/uL (152-406); RBC Red Blood Cell Count 4.41 M/uL (3.86-4.86)
[2023-08-06 11:06] LABS: Albumin 3.5 g/dL (3.4-5.0); Bilirubin Total 0.4 mg/dL (0.2-1.0); Protein, Total 7.5 g/dL (6.4-8.2)
[2023-08-06 11:12] LABS: Potassium 3.8 mEq/L (3.5-5.1)
--- NOTE | 2023-08-06 11:46 | ER ---
Nurse's Notes [facility] Name: Heather Coon Age: 53 yrs Sex: Female : 1970 Arrival Date: 08/06/2023 Time: 10:13 Bed 19 Private MD: Diagnosis: Abdominal tenderness;Left sided colitis without complications;Other viral enteritis Presentation: 08/06 10:23 Chief complaint: Patient states: LLQ abdominal pain getting worse since her last visit ll1 here. Coronavirus screen: Vaccine status: Patient reports being unvaccinated. Client denies travel out of the [place] in the last 14 days. At this time, the client does not indicate any symptoms associated with coronavirus-19. Ebola Screen: Patient denies travel to an Ebola-affected area in the 21 days before illness onset. Initial Sepsis Screen: Does the patient meet any 2 criteria? HR > 90 bpm. No. Patient's initial sepsis screen is negative. Does the patient have a suspected source of infection? Yes: Acute abdominal pain. Risk Assessment: Do you want to hurt yourself or someone else? Patient reports no desire to harm self or others. Onset of symptoms was July 28, 2023. 10:23 Method Of Arrival: Ambulatory ll1 10:23 Acuity: ANDER 3 ll1 Triage Assessment: 10:25 General: Appears uncomfortable, ill, Behavior is calm, cooperative, appropriate for ll1 age. Pain: Complains of pain in LLQ Quality of pain is described as aching. GI: Reports lower abdominal pain, indigestion, "black stringy stool". 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 - Social history:: Smoking status: Patient reports the use of cigarette tobacco products, smokes one-half pack cigarettes per day. - Family history:: not pertinent. Screenin:53 [facility] ED Fall Risk Assessment (Adult) Score/Fall Risk Level 0 - 2 = Low Risk ll1 Oriented to surroundings, Maintained a safe environment, Educated pt \\T\\ family on fall prevention, incl call for assistance when getting out of bed, Hourly rounding (assess needs \\T\\ fall precautionary measures) done. Abuse screen: Denies threats or abuse. Nutritional screening: No deficits noted. Tuberculosis screening: No symptoms or risk factors identified. Assessment: 11:03 Reassessment: No changes from previously documented assessment. Patient and/or family ll1 updated on plan of care and expected duration. Pain level reassessed. Patient is alert, oriented x 3, equal unlabored respirations, skin warm/dry/pink. 12:00 Reassessment: No changes from previously documented assessment. Patient and/or family ll1 updated on plan of care and expected duration. Pain level reassessed. 12:52 Reassessment: No changes from previously documented assessment. Patient and/or family ll1 updated on plan of care and expected duration. Pain level reassessed. Patient is alert, oriented x 3, equal unlabored respirations, skin warm/dry/pink. 12:55 GI: Bowel sounds present X 4 quads. Abd is soft and non tender X 4 quads. ll1 Vital Signs: 10:23 BP 175 / 106; Pulse 119; Resp 20; Temp 98.5; Pulse Ox 100% on R/A; Weight 83.91 kg; ll1 Height 5 ft. 3 in. ; Pain 9/10; 11:04 BP 151 / 91; Pulse 102; Resp 16; Pulse Ox 100% on R/A; ll1 12:52 BP 130 / 83; Pulse 102; Resp 18; Pulse Ox 95% ; ll1 10:23 Body Mass Index 32.77 (83.91 kg, 160.02 cm) ll1 10:23 Pain Scale: Adult ll1 ED Course: 10:15 Patient arrived in ED. mr 10:21 Derrick Santillan MD is Attending Physician. fabrice 10:23 Yanelis Currie RN is Primary Nurse. ll1 10:25 Triage completed. ll1 10:26 Arm band placed on Patient placed in an exam room, on a stretcher. ll1 10:30 Provided Education on: ER process and procedures. ll1 10:40 Inserted saline lock: 22 gauge in right antecubital area, using aseptic technique. ll1 Blood collected. 10:50 IV discontinued, intact, bleeding controlled, Pressure dressing applied, slight ll1 swelling/pain to site. 10:52 Missed attempt(s): 22 gauge in right upper arm. Bleeding controlled, band aid applied, ll1 catheter tip intact. 11:01 Inserted saline lock: 22 gauge in left forearm, using aseptic technique. Blood ds4 collected. 11:26 CT Abd/Pelvis - IV Contrast Only In Process Unspecified. EDMS 11:36 Lactate w/ 2H reflex if indic. Sent. ll1 11:45 Diana Vazquez MD is Referral Physician. [facility] 12:53 Patient has correct armband on for positive identification. Bed in low position. Call ll1 light in reach. Client placed on continuous cardiac and pulse oximetry monitoring. NIBP monitoring applied. 12:55 No provider procedures requiring assistance completed. IV discontinued, intact, ll1 bleeding controlled, No redness/swelling at site. Pressure dressing applied. Administered Medications: 11:03 Drug: NS 0.9% IV 1000 ml IV at 1 bolus Per protocol; 1000 mL bolus Route: IV; Rate: 1 ll1 bolus; Site: left forearm; 12:33 Follow up: Response: No adverse reaction; IV Status: Completed infusion; IV Intake: ll1 950ml 11:03 Drug: Ondansetron IVP 4 mg IVP once; over 2 minutes Route: IVP; Site: left forearm; ll1 12:34 Follow up: Response: No adverse reaction ll1 11:03 Drug: morphine IVP or IV 4 mg IVP once over 4 mins Route: IVP; Infused Over: 4 mins; ll1 Site: left forearm; 12:34 Follow up: Response: No adverse reaction ll1 12:01 Drug: NS 0.9% IV 1000 ml IV at 1 bolus Per protocol; 1000 mL bolus Route: IV; Rate: 1 iw bolus; Site: left forearm; 12:56 Follow up: Response: No adverse reaction; IV Status: Completed infusion; IV Intake: ll1 1000ml 12:06 Drug: morphine IVP or IV 4 mg IVP once over 4 mins Route: IVP; Infused Over: 4 mins; ll1 Site: left forearm; 12:34 Follow up: Response: No adverse reaction; Pain is decreased; RASS: Alert and Calm (0) ll1 Medication: 12:53 VIS not applicable for this client. ll1 Intake: 12:33 IV: 950ml; Total: 950ml. ll1 12:56 IV: 1000ml; Total: 1950ml. ll1 Outcome: 11:45 Discharge ordered by . fabrice 12:55 Discharged to home via wheelchair, ll1 12:55 Condition: stable 12:55 Discharge instructions given to patient, Instructed on discharge instructions, follow up and referral plans. medication usage, Demonstrated understanding of instructions, follow-up care, medications, Prescriptions given X 4, 12:56 Patient left the ED. ll1 Signatures: Dispatcher [employer] EDMS Derrick Santillan MD MD cha Rivera, Mary, Reg Reg mr Lorena Vargas, RN José Miguel Carrasquillo ds4 Yanelis Currie RN RN ll1 Corrections: (The following items were deleted from the chart) 12:55 12:55 Discharge instructions given to patient, Instructed on discharge instructions, ll1 follow up and referral plans. medication usage, Demonstrated understanding of instructions, follow-up care, medications, Prescriptions given X ll1
--- NOTE | 2023-08-06 11:46 | EDPHYS ---
Physician Documentation [facility] Name: Heather Coon Age: 53 yrs Sex: Female : 1970 Arrival Date: 08/06/2023 Time: 10:13 Bed 19 Private MD: Derrick Mota HPI: 08/06 11:25 This 53 yrs old Female presents to ER via Ambulatory with complaints of fabrice Abdominal Pain. 11:25 The patient presents with abdominal pain in the left lower quadrant. Onset: The fabrice symptoms/episode began/occurred 6 day(s) ago. The symptoms do not radiate. Associated signs and symptoms: Pertinent positives: nausea and vomiting. Modifying factors: The symptoms are alleviated by nothing, the symptoms are aggravated by nothing. The patient has experienced similar episodes in the past, several times. 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 - Social history:: Smoking status: Patient reports the use of cigarette tobacco products, smokes one-half pack cigarettes per day. - Family history:: not pertinent. ROS: 11:25 Constitutional: Negative for fever, chills, and weight loss, Eyes: Negative for injury, fabrice pain, redness, and discharge, ENT: Negative for injury, pain, and discharge, Neck: Negative for injury, pain, and swelling, Cardiovascular: Negative for chest pain, palpitations, and edema, Respiratory: Negative for shortness of breath, cough, wheezing, and pleuritic chest pain, Back: Negative for injury and pain, : Negative for injury, bleeding, discharge, and swelling, MS/Extremity: Negative for injury and deformity, Skin: Negative for injury, rash, and discoloration, Neuro: Negative for headache, weakness, numbness, tingling, and seizure, Psych: Negative for depression, anxiety, suicide ideation, homicidal ideation, and hallucinations, Allergy/Immunology: Negative for hives, rash, and allergies, Endocrine: Negative for neck swelling, polydipsia, polyuria, polyphagia, and marked weight changes, 11:25 Abdomen/GI: Positive for abdominal pain, of the left lower quadrant, Exam: 11:25 Constitutional: This is a well developed, well nourished patient who is awake, alert, fabrice and in no acute distress. Head/Face: Normocephalic, atraumatic. Eyes: Pupils equal round and reactive to light, extra-ocular motions intact. Lids and lashes normal. Conjunctiva and sclera are non-icteric and not injected. Cornea within normal limits. Periorbital areas with no swelling, redness, or edema. ENT: Nares patent. No nasal discharge, no septal abnormalities noted. Tympanic membranes are normal and external auditory canals are clear. Oropharynx with no redness, swelling, or masses, exudates, or evidence of obstruction, uvula midline. Mucous membranes moist. Neck: Trachea midline, no thyromegaly or masses palpated, and no cervical lymphadenopathy. Supple, full range of motion without nuchal rigidity, or vertebral point tenderness. No Meningismus. Chest/axilla: Normal chest wall appearance and motion. Nontender with no deformity. No lesions are appreciated. Cardiovascular: Regular rate and rhythm with a normal S1 and S2. No gallops, murmurs, or rubs. Normal PMI, no JVD. No pulse deficits. Respiratory: Lungs have equal breath sounds bilaterally, clear to auscultation and percussion. No rales, rhonchi or wheezes noted. No increased work of breathing, no retractions or nasal flaring. Abdomen/GI: Soft, non-tender, with normal bowel sounds. No distension or tympany. No guarding or rebound. No evidence of tenderness throughout. Back: No spinal tenderness. No costovertebral tenderness. Full range of motion. Skin: Warm, dry with normal turgor. Normal color with no rashes, no lesions, and no evidence of cellulitis. MS/ Extremity: Pulses equal, no cyanosis. Neurovascular intact. Full, normal range of motion. Neuro: Awake and alert, GCS 15, oriented to person, place, time, and situation. Cranial nerves II-XII grossly intact. Motor strength 5/5 in all extremities. Sensory grossly intact. Cerebellar exam normal. Normal gait. Psych: Awake, alert, with orientation to person, place and time. Behavior, mood, and affect are within normal limits. 11:25 Abdomen/GI: Inspection: abdomen appears normal, Bowel sounds: normal, Palpation: mild abdominal tenderness, in the left lower quadrant, moderate abdominal tenderness, Liver: no appreciated palpable abnormalities, Hernia: not appreciated, 11:31 ECG was reviewed by the Attending Physician. [facility] Vital Signs: 10:23 BP 175 / 106; Pulse 119; Resp 20; Temp 98.5; Pulse Ox 100% on R/A; Weight 83.91 kg; ll1 Height 5 ft. 3 in. ; Pain 9/10; 11:04 BP 151 / 91; Pulse 102; Resp 16; Pulse Ox 100% on R/A; ll1 12:52 BP 130 / 83; Pulse 102; Resp 18; Pulse Ox 95% ; ll1 10:23 Body Mass Index 32.77 (83.91 kg, 160.02 cm) ll1 10:23 Pain Scale: Adult ll1 MDM: 10:22 Patient medically screened. fabrice 11:27 Differential diagnosis: bowel obstruction, diverticulitis, gastritis, Hepatitis, fabrice Mesenteric ischemia or infarction, non-specific abd pain, pancreatitis, Peptic Ulcer Disease, Pyelonephritis, Ureterolithiasis, urinary tract infection. Data reviewed: vital signs, nurses notes, lab test result(s), radiologic studies, CT scan. Consideration of Admission/Observation Escalation of care including admission/observation considered. I considered the following discharge prescriptions or medication management in the emergency department Medications were administered in the Emergency Department. See MAR. Independent interpretation of the following test(s) in the Emergency Department CT Scan: My interpretation is ct abd/ pelvis. Test considered but Not performed: Ultrasound no abd usg. Historians other than the Patient: pt well informed. Care significantly affected by the following chronic conditions: Hypertension, Chronic Obstructive Pulmonary Disease, Obesity. 08/06 10:24 Order name: CBC with Diff; Complete Time: 11:10 [facility] 08/06 10:24 Order name: CMP; Complete Time: 11:44 [facility] 08/06 10:24 Order name: Lipase; Complete Time: : [facility] 08/06 11:11 Order name: Lactate w/ 2H reflex if indic. [facility] 08/06 11:11 Order name: CT Abd/Pelvis - IV Contrast Only [facility] 08/06 10:24 Order name: EKG; Complete Time: 10: [facility] 08/06 10:24 Order name: IV Saline Lock; Complete Time: 10: [facility] 08/06 10:24 Order name: Labs collected and sent; Complete Time: 10: [facility] 08/06 10:24 Order name: EKG - Nurse/Tech; Complete Time: 11:09 [facility] EC:31 Rate is 107 beats/min. Rhythm is regular. QRS [place] is Normal. [place] interval is normal. fabrice QRS interval is normal. QT interval is normal. No Q waves. T waves are Normal. No ST changes noted. Clinical impression: NSR w/ Non-specific ST/T Changes and No evidence of ischemia. Interpreted by me. Reviewed by me. Administered Medications: 11:03 Drug: NS 0.9% IV 1000 ml IV at 1 bolus Per protocol; 1000 mL bolus Route: IV; Rate: 1 ll1 bolus; Site: left forearm; 12:33 Follow up: Response: No adverse reaction; IV Status: Completed infusion; IV Intake: ll1 950ml 11:03 Drug: Ondansetron IVP 4 mg IVP once; over 2 minutes Route: IVP; Site: left forearm; ll1 12:34 Follow up: Response: No adverse reaction ll1 11:03 Drug: morphine IVP or IV 4 mg IVP once over 4 mins Route: IVP; Infused Over: 4 mins; ll1 Site: left forearm; 12:34 Follow up: Response: No adverse reaction ll1 12:01 Drug: NS 0.9% IV 1000 ml IV at 1 bolus Per protocol; 1000 mL bolus Route: IV; Rate: 1 iw bolus; Site: left forearm; 12:56 Follow up: Response: No adverse reaction; IV Status: Completed infusion; IV Intake: ll1 1000ml 12:06 Drug: morphine IVP or IV 4 mg IVP once over 4 mins Route: IVP; Infused Over: 4 mins; ll1 Site: left forearm; 12:34 Follow up: Response: No adverse reaction; Pain is decreased; RASS: Alert and Calm (0) ll1 Disposition Summary: 08/06/23 11:45 Discharge Ordered Notes: Location: Home fabrice Problem: new fabrice Symptoms: have improved fabrice Condition: Stable [facility] Diagnosis - Abdominal tenderness fabrice - Left sided colitis without complications fabrice - Other viral enteritis fabrice Followup: fabrice - With: Private Physician - When: 2 - 3 days - Reason: Recheck today's complaints, Continuance of care, Re-evaluation by your physician Followup: fabrice - With: Diana Vazquez MD - When: 2 - 3 days - Reason: Recheck today's complaints, Re-evaluation by your physician Discharge Instructions: - Discharge Summary Sheet fabrice - Abdominal Pain, Adult fabrice - Abdominal Pain, Adult, [id number] fabrice - Colitis [facility] Forms: - Medication Reconciliation Form [facility] - Thank You Letter [facility] - Antibiotic Education fabrice - Prescription Opioid Use fabrice - Patient Portal Instructions [facility] - Leadership Thank You Letter [facility] Prescriptions: - Flagyl 500 mg Oral tablet - take 1 tablet ORAL route every 8 hours for 7 days; 21 tablet; Refills: 0, [facility] Product Selection Permitted - Pepcid 20 mg Oral Tablet - take 1 tablet ORAL route every 12 hours for 10 days; 20 tablet; Refills: 0, [facility] Product Selection Permitted - Cipro 500 mg Oral Tablet - take 1 tablet ORAL route every 12 hours for 7 days; 14 tablet; Refills: 0, [facility] Product Selection Permitted - dicyclomine 20 mg Oral tablet - take 1 tablet ORAL route 4 times per day; 28 tablet; Refills: 0, Product [facility] Selection Permitted Signatures: Dispatcher [employer] Derrick Payton MD MD cha Williams, Irene, Yanelis Shin RN, RN RN ll1 Corrections: (The following items were deleted from the chart) 10:39 10:25 Abdomen Pelvis W Con+CT.RAD.BRZ ordered. KRYSTIN MCCLELLAND
--- NOTE | 2023-08-06 12:26 | RAD REPORT ---
EXAM DESCRIPTION: CT - Abdomen Pelvis W Contrast - 08/06/2023 11:25 am CLINICAL HISTORY: ABD PAIN COMPARISON: Abdomen Pelvis W Contrast dated 07/31/2023; Abdomen Pelvis W Contrast dated 3; Abdomen Pelvis W Contrast dated 02/04/2023; Abdomen Pelvis W Contrast dated 01/14/2023 TECHNIQUE: Thin cut axial CT imaging of the abdomen and pelvis was performed following intravenous a dministration of 100 mL Isovue 300. Multiplanar reformats were generated and reviewed. All CT scans are performed using dose optimization technique as appropriate and may include automated exposure control or mA/KV adjustment according to patient size. FINDINGS: No suspicious findings in the lung bases. The liver, spleen, and pancreas show no suspicious findings. Stable left adrenal lobulated nodularity , measuring up to 3 cm, not fully evaluated. No suspicious right adrenal lesions. Gallbladder was wade gically removed. Symmetric renal function is seen with no hydronephrosis or suspicious renal mass. No dilated bowel loops. Mild wall thickening along the distal duodenum and proximal jejunum. Subseque nt of loops of jejunum demonstrate fluid opacification within nondistended loops, with mild mucosal h yperenhancement. No free air, free fluid or inflammatory stranding. No hernia, mass or bulky lymphade nopathy. Fibroid uterus. The urinary bladder is without significant finding. Fibroid uterus again seen. Stable small seroma at the level of the posterior lower lumbar decompression opposite L3-4. No suspicious bony findings. IMPRESSION: Segmental proximal small bowel mild wall thickening as well as fluid opacification withi n nondistended loops as above. Findings may relate to infectious/inflammatory enteritis. Other stable findings as above.
[2023-08-06 13:35] VITALS: TEMP 98.5
[2023-08-06 13:49] VITALS: BP 130/83; O2SAT 95
--- NOTE | 2023-08-10 17:08 | EKG ---
Test Date: 2023-08-06 Test Time: 11:09:17 Linux Support Engineer: [place] MEASUREMENT RESULTS: Intervals: Rate: 107 AR: 138 QRSD: 84 QT: 372 QTc: 496 [place]: P: 68 AR: 138 QRS: 75 T: 57 INTERPRETIVE STATEMENTS: Sinus tachycardia Right atrial enlargement Low voltage QRS Borderline ECG Compared to ECG 07/27/2023 13:41:05 Low QRS voltage now present Sinus rhythm no longer present Right-axis deviation no longer present Electronically Signed On 08-10-23 16:56:35 HOT DIE PRESS OPERATOR by Saad Leavitt
== END ==
LOC: ER 10:13
DX: K52.9 Noninfective gastroenteritis and colitis, unspecified (principal); A08.39 Other viral enteritis; F17.210 Nicotine dependence, cigarettes, uncomplicated; F41.9 Anxiety disorder, unspecified; F32.A Depression, unspecified; I10 Essential (primary) hypertension; I25.2 Old myocardial infarction; I50.9 Heart failure, unspecified
CPT/HCPCS: 36415; 74177; 80053; 83605; 83690; 85025; 93005; 96361; 96374; 96375; 99284; J2405; J7030; Q9967

== ENCOUNTER → 2023-08-11 | Emergency (ER) | payer SELFPAY ==
[~2023-08-11] MED LIST changes: +KETOROLAC 30 MG/ML INJ ONE; +NA CHLORIDE 0.9% 100 ML ONE; +TRAZODONE 50 MG TABLET ONE; +VALPROATE NA 500 MG/5 ML INJ IV ONE
--- OUTSIDE RECORDS SUMMARY | 2023-08-11 22:22 | XMS REPORT | Continuity of Care Document ---
Author Name Unknown Address [address] [facility] [place] [address] [facility] Address [address] [facility] [place] [address] Care Team Providers Care Engineering Test Specialist Name Role Phone Aneta Silva Primary Care Physician AYDEE GO Attending Clinician Unavailable CARA BURGESS Attending Clinician Unavailab ADAM Cabrera Attending Clinician Unavailable THOMAS LOZOYA Attending Clinician Nina MARIAH Quiroga Attending Clinician Unavailable Cara Burgess MD Attending Clinician [phone] Aydee Go MD Attending Clinician [phone] System, Provider Not In Attending Clinician Unav Dallas Allen Attending Clinician UnavailAdam Vasques MD Attending Clinician [phone] Harry Newsome MD Attending Clinician [phone] Antwon Cote MD Attending Clinician [phone] Ramya MD, Yue Dumont Attending Clinician [phone] Tamica ELIZONDO, Connie Antonio Attending Clinician [phone] Luis Carlos ELIZONDO, Mariah Attending Clinician [phone] Valerio ELIZONDO, Thomas Hopkins Attending Clinician CONNIE DAVEY Attending Clinician Unavailекатерина e JENNY, Alfonso MOSELEY Attending Clinician Unavailable Jennyshannon MITTAL, Alfonso Moseley Attending Clinician [phone] RITCHIE WARREN Attending Clinician Unavailable Briana ELIZONDO, Ritchie Stoner Attending Clinician [phone] Rk CAMPOS, Blanca Attending Clinician [phone] Reji ELIZONDO, Halima Hummel Attending Clinician + [phone] Lucho ELIZONDO, Jen Olivia Attending Clinician [phone] Roxi ELIZONDO, Parrish Reyez Attending Clinici an PARRISH WHEATLEY Attending Clinician Unavaila LORENZA Mariscal Attending Clinician Unavailable Alcon ELIZONDO, Sav Attending Clinician [phone] Lorenza Lowry MD Attending Clinician [phone] Maria Teresa Nicole LVN Attending Clinician [phone] CHANTEL BOJORQUEZ Attending Clinician CHANTEL Kelly Attending Clinician Jack Ibrahim MD, Brandyn Otoole Attending Clinician [phone] SELINA MARTINES Attending Clinician Unavailable Sapna Vargas DO Attending Clinician + [phone] Tyrel ELIZONDO, Glory Katz Attending Clinician + Selina Martines MD Attending Clinician [phone] Chung Graham Attending Clinician U chelsi Pak MD, Jose Attending Clinician [phone] JOSE PAK Attending Clinician Unavailable NICHELLE VIRK Attending Clinician Unavaila Nichelle Lakhani Attending Clinician [phone] Doctor Unassigned, [place] Attending Clinician U chelsi Nava RN, Miky Attending Clinician Unavailab monroe SUAREZ Fabrice Attending Clinician [phone] Deo COMMUNITY THEATER ACTOR, Lydia Attending Clinician [phone] Unknown, Attending Attending Clinician Unavailab le UNKNOWN, ATTENDING Attending Clinician Unavailab Anali Berg Attending Clinician [phone] Yehuda Arcos MD Attending Clinician [phone] CARA BURGESS Admitting Clinician Unavailab ADAM Cabrera Admitting Clinician Unavailable MARIAH ALDRIDGE Admitting Clinician Unavailable CONINE DAVEY Admitting Clinician UnavailAlfonso Oh Admitting Clinician Unavailable RITCHIE WARREN Admitting Clinician Unavailable JEN GELLER Admitting Clinician Unavaila LORENZA Mariscal Admitting Clinician Unavailable Lorenza Lowry MD Admitting Clinician [phone] BRANDYN IBRAHIM Admitting Clinician Unavailable Brandyn Ibrahim MD Admitting Clinician [phone] GLORY ESTEVES Admitting Clinician Unav NICHELLE Padron Admitting Clinician Unavaila yaya Payers Payer Name Policy Type Policy Number Effective Date Expirati on Date Source MARVINVENKATTerry RICARDO [id number] 2023 00:00:00 MEDICAID PENDING PENDING 2022 00:00:00 Problems Condition Name Condition Details Condition Category Status Onset Date Resolution Date Last Treatment Date Treating Clinician Comments Source Cavitary lesion of lung Cavitary lesion of lung Disease Active 2022-07 00:00: 00 [facility] Bilateral leg weakness Bilateral leg weakness Disease Active 2022-07 00:00: 00 [facility] Pneumonia Pneumonia Disease Active 2022-07 00:00: 00 [facility] Cervical myelopathy Cervical myelopathy Disease Recurre nce 2022-07 00:00: 00 [facility] Cervical disc disorder with myelopathy , high cervical region Cervical disc disorder with myelopathy , high cervical region Disease Active 2023-1 1-09 00:00: 00 [facility] Cord compressio n Cord compressio n Disease Recurre nce 0 9-11 00:00: 00 [facility] Cauda equina compressio n Cauda equina compressio n Disease Recurre nce 0 9-11 00:00: 00 [facility] Seizure Seizure Disease Recurre vte 1-14 00:00: 00 [facility] Cardiomyop athy Cardiomyop athy Disease Active 08-01 00:00: 00 [facility] NSVT (nonsustai keisha ventricula r tachycardi a) NSVT (nonsustai keisha ventricula r tachycardi a) Disease Active 08-01 00:00: 00 [facility] Chest pain, unspecifie d type Chest pain, unspecifie d type Disease Active 07-31 00:00: 00 [facility] Elevated brain natriureti c peptide (BNP) level Elevated brain natriureti c peptide (BNP) level Disease Active 07-31 00:00: 00 [facility] Coronary artery disease involving [place] coronary artery of [place] heart without angina pectoris Coronary artery disease involving [place] coronary artery of [place] heart without angina pectoris Disease Active 07-31 00:00: 00 [facility] Snores Snores Disease Active 07-31 00:00: 00 [facility] Cigarette smoker Cigarette smoker Disease Active 07-31 00:00: 00 [facility] Primary hypertensi on Primary hypertensi on Disease Active 07-31 00:00: 00 [facility] Other hyperlipid emia Other hyperlipid emia Disease Active 07-31 00:00: 00 [facility] Coronary artery disease involving [place] coronary artery of [place] heart without angina pectoris Coronary artery disease involving [place] coronary artery of [place] heart without angina pectoris Disease Active 07-31 00:00: 00 [facility] Chronic bilateral low back pain with bilateral sciatica Chronic bilateral low back pain with bilateral sciatica Disease Active 2021-07 0-17 00:00: 00 [facility] 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 Disease Active 04-15 00:00: 00 [facility] Neuroforam inal stenosis of cervical spine Neuroforam inal stenosis of cervical spine Disease Active 04-15 00:00: 00 [facility] Stroke-lik e symptoms Stroke-lik e symptoms Disease Active 04-13 00:00: 00 [facility] Bipolar disorder, in partial remission, most recent episode manic Bipolar disorder, in partial remission, most recent episode manic Disease Active 09-27 00:00: 00 [facility] Neuroforam inal stenosis of lumbar spine Neuroforam inal stenosis of lumbar spine Disease Active 09-27 00:00: 00 [facility] Bilateral acute otitis media, recurrence not specified, unspecifie d otitis media type Bilateral acute otitis media, recurrence not specified, unspecifie d otitis media type Disease Active 09-27 00:00: 00 [facility] Lumbar spinal stenosis Lumbar spinal stenosis Disease Active 09-27 00:00: 00 [facility] Right-side d low back pain with sciatica, sciatica laterality unspecifie d Right-side d low back pain with sciatica, sciatica laterality unspecifie d Disease Active 09-27 00:00: 00 [facility] Generalize d anxiety disorder Generalize d anxiety disorder Disease Active 09-27 00:00: 00 [facility] Agoraphobi a Agoraphobi a Disease Active 09-27 00:00: 00 [facility] Bipolar disorder, in partial remission, most recent episode manic Bipolar disorder, in partial remission, most recent episode manic Disease Active 09-27 00:00: 00 [facility] Obsessive compulsive disorder Obsessive compulsive disorder Disease Active 09-27 00:00: 00 [facility] Breast mass, left Breast mass, left Disease Active 09-17 00:00: 00 [facility] Anxiety Anxiety Disease Active 09-17 00:00: 00 [facility] Lower back pain Lower back pain Disease Active 09-17 00:00: 00 [facility] High blood pressure High blood pressure Disease Active 09-17 00:00: 00 [facility] COPD (chronic obstructiv e pulmonary disease) COPD (chronic obstructiv e pulmonary disease) Disease Active 09-17 00:00: 00 [facility] Obesity Obesity Disease Active 09-17 00:00: 00 [facility] Allergies, Adverse Reactions, Alerts Allergy Name Allergy Type Status Severity Reaction(s) Onset Date Inactive Date Treating Clinician Comments Source FLUOXETI NE Allergy Active 03-29 00:00: 00 [facility] GREEN TEA Allergy Active High Other 03-29 00:00: 00 [facility] LEVETIRA CETAM Allergy Active High N\\T\\V 03-29 00:00: 00 [facility] Green Tea Propensi ty to adverse reaction s Active 03-29 00:00: 00 Seizure like activity [facility] Levetira cetam Propensi ty to adverse reaction s Active Nausea And Vomiting 03-29 00:00: 00 Intensifi es seizure [facility] Fluoxeti ne Propensi ty to adverse reaction s Active 03-29 00:00: 00 [facility] Green Tea Drug Allergy Active Other (See Comments) 03-29 00:00: 00 Seizure like activity [facility] Levetira cetam Drug Allergy Active Nausea And Vomiting 03-29 00:00: 00 Intensifi es seizure [facility] LEVETIRA CETAM DRUG INGREDI Active Other-Cmnt 11-17 00:00: 00 [facility] Levetira cetam Propensi ty to adverse reaction s Active Other - See comments 11-17 00:00: 00 Makes seizures worse [facility] Green Tea Propensi ty to adverse reaction s Active 08-02 00:00: 00 [facility] GREEN TEA Allergy Active 08-02 00:00: 00 [facility] Fluoxeti ne Propensi ty to adverse reaction s Active Rash 08-02 00:00: 00 [facility] FLUOXETI NE Allergy Active Med Rash 08-02 00:00: 00 [facility] Fluoxeti ne Propensi ty to adverse reaction s Active Unknown - See comments 03-25 00:00: 00 [facility] FLUOXETI NE DRUG INGREDI Active Unknown-Cmnt 03-25 00:00: 00 [facility] DICLOFEN AC DRUG INGREDI Active HYPERTENSION 11-20 00:00: 00 [facility] Diclofen ac Propensi ty to adverse reaction s Active Hypertension 11-20 00:00: 00 [facility] GREEN TEA DRUG INGREDI Active Med Other-Cmnt 08-10 00:00: 00 [facility] Green Tea Propensi ty to adverse reaction s to drug Active Other - See comments 08-10 00:00: 00 Seizures [facility] FLUOXETI NE HCL DRUG INGREDI Active Hives 03-19 00:00: 00 [facility] Fluoxeti ne Hcl Propensi ty to adverse reaction s Active Hives 03-19 00:00: 00 [facility] Family History Family Member Diagnosis Comments Start Date Stop Date Sourc e Natural mother Alcohol abuse C [facility] Natural mother Stroke [facility] Natural mother Alcohol abuse C [facility] Natural mother Cancer [facility] Natural mother Diabetes [facility] Natural mother Heart disease C [facility] Natural mother Hyperlipidemia [facility] Natural mother Kidney disease [facility] Natural mother Stroke [facility] Paternal uncle Diabetes [facility] Social History Social Habit Start Date Stop Date Quantity Comments Source History SDOH Social Connections Get Together [facility] History SDOH Social Connections [facility] History SDOH Social Connections Membership [facility] History SDOH Social Connections Meetings [facility] History SDOH Alcohol Frequency [facility] History SDOH Alcohol Std Drinks [facility] History SDOH Alcohol Binge [facility] History SDOH Housing Homeless Last Year [facility] Sexual orientation C [facility] History of Social function 2023-08-03 00:00:00 2023-08-03 00:00:00 [facility] Alcohol intake 2023-06-02 00:00:00 2023-06-02 00:00:00 Current drinker of alcohol (finding) [facility] Exposure to SARS-CoV-2 (event) 2023-05-18 00:00:00 2023-05-28 07:28:00 Not sure [facility] History SDOH Housing Unable to Pay - In the last 12 months, was there a time when you were not able to pay the mortgage or rent on time? 2023-05-26 00:00:00 2023-05-26 00:00:00 Yes [facility] Cigarettes smoked current (pack per day) - Reported 2023-05-26 00:00:00 2023-05-26 00:00:00 [facility] Cigarette pack-years 2023-05-26 00:00:00 2023-05-26 00:00:00 [facility] Tobacco use and exposure 2023-05-26 00:00:00 2023-05-26 00:00:00 Smokeless tobacco non-user [facility] History of tobacco use 1987-05-22 00:00:00 2023-05-22 00:00:00 Cigarette Smoker [facility] History SDOH Housing Places Lived 2023-03-30 00:00:00 2023-03-30 00:00:00 1 [facility] Alcohol Comment 2023-03-29 00:00:00 2023-03-29 00:00:00 2x a week [facility] History SDOH Social Connections Phone 2022-08-01 00:00:00 2022-08-01 00:00:00 5 [facility] History SDOH Social Connections Living 2022-08-01 00:00:00 2022-08-01 00:00:00 5 [facility] History SDOH Physical Activity DPW 2022-08-01 00:00:00 2022-08-01 00:00:00 0 [facility] History SDOH Physical Activity MPS 2022-08-01 00:00:00 2022-08-01 00:00:00 0 [facility] History SDOH Financial 2022-08-01 00:00:00 2022-08-01 00:00:00 3 [facility] History SDOH Food Worry 2022-08-01 00:00:00 2022-08-01 00:00:00 1 [facility] History SDOH Food Scarcity 2022-08-01 00:00:00 2022-08-01 00:00:00 1 [facility] History SDOH Transport Med 2022-08-01 00:00:00 2022-08-01 00:00:00 2 [facility] History SDOH Transport Non-Med 2022-08-01 00:00:00 2022-08-01 00:00:00 2 [facility] Education 2022-07-31 00:00:00 2022-07-31 00:00:00 14 [facility] Sex Assigned At 1970 00:00:00 1970 00:00:00 [facility] Smoking Status Start Date Stop Date Source Ex-smoker 2023-05-26 00:00:00 2023-05-26 00:00:00 C [facility] Smokes tobacco daily 2023-03-29 00:00:00 [facility] Medications Ordered Medication Name Filled Medication Name Start Date Stop Date Current Medication? Ordering Clinician Indication Dosage Frequency Signature (SIG) Comments Components Source tamsulosin (FLOMAX) 0.4 mg Cap 24 hr capsule 2022-07 00:00: 00 06-22 23:59 :00 No .4mg QD Take 1 capsule (0.4 mg total) by mouth daily for 5 days. [facility] tamsulosin (FLOMAX) 0.4 mg Cap 24 hr capsule 2022-07 00:00: 00 06-22 23:59 :00 No .4mg QD Take 1 capsule (0.4 mg total) by mouth daily for 5 days. [facility] tamsulosin (FLOMAX) 0.4 mg Cap 24 hr capsule 2022-07 00:00: 00 06-22 23:59 :00 No .4mg QD Take 1 capsule (0.4 mg total) by mouth daily for 5 days. [facility] tamsulosin (FLOMAX) 0.4 mg Cap 24 hr capsule 2022-07 00:00: 00 06-22 23:59 :00 No .4mg QD Take 1 capsule (0.4 mg total) by mouth daily for 5 days. [facility] tamsulosin (FLOMAX) 0.4 mg Cap 24 hr capsule 2022-07 00:00: 00 06-22 23:59 :00 No .4mg QD Take 1 capsule (0.4 mg total) by mouth daily for 5 days. [facility] tamsulosin (FLOMAX) 0.4 mg Cap 24 hr capsule 2022-07 00:00: 00 06-22 23:59 :00 No .4mg QD Take 1 capsule (0.4 mg total) by mouth daily for 5 days. [facility] tamsulosin (FLOMAX) 0.4 mg Cap 24 hr capsule 2022-07 00:00: 00 06-22 23:59 :00 No .4mg QD Take 1 capsule (0.4 mg total) by mouth daily for 5 days. [facility] tamsulosin (FLOMAX) 0.4 mg Cap 24 hr capsule 2022-07 00:00: 00 06-22 23:59 :00 No .4mg QD Take 1 capsule (0.4 mg total) by mouth daily for 5 days. [facility] tamsulosin (FLOMAX) 0.4 mg Cap 24 hr capsule 2022-07 00:00: 00 06-22 23:59 :00 No .4mg QD Take 1 capsule (0.4 mg total) by mouth daily for 5 days. [facility] tamsulosin (FLOMAX) 0.4 mg Cap 24 hr capsule 2022-07 00:00: 00 06-22 23:59 :00 Yes .4mg QD Take 1 capsule (0.4 mg total) by mouth daily for 5 days. [facility] tamsulosin (FLOMAX) 0.4 mg Cap 24 hr capsule 2022-07 00:00: 00 06-22 23:59 :00 Yes .4mg QD Take 1 capsule (0.4 mg total) by mouth daily for 5 days. [facility] tamsulosin (FLOMAX) 0.4 mg Cap 24 hr capsule 2022-07 00:00: 00 06-22 23:59 :00 No .4mg QD Take 1 capsule (0.4 mg total) by mouth daily for 5 days. [facility] metoprolol succinate (TOPROL-XL) 25 MG 24 hr tablet 2022-07 19:45: 32 Yes 25mg QD Take 1 tablet (25 mg total) by mouth daily. [facility] varenicline (CHANTIX) 1 mg tablet 2022-07 19:45: 32 Yes 1mg Q.5D Take 1 tablet (1 mg total) by mouth 2 (two) times daily Give with meals and with a full glass of water.. [facility] albuterol HFA (VENTOLIN HFA) 90 mcg/actuati on inhaler 2022-07 19:45: 32 Yes 1{puff} Inhale 1 puff by mouth via inhaler every 6 (six) hours as needed for Wheezing. [facility] fluticasone -umeclidin- vilanter (Trelegy Ellipta) 200-62.5-25 mcg DsDv 2022-07 19:45: 32 Yes QD Inhale by mouth via inhaler daily. [facility] atorvastati n (LIPITOR) 20 MG tablet 2022-07 19:45: 32 Yes 20mg QD Take 1 tablet (20 mg total) by mouth daily. [facility] metoprolol succinate (TOPROL-XL) 25 MG 24 hr tablet 2022-07 19:45: 32 Yes 25mg QD Take 1 tablet (25 mg total) by mouth daily. [facility] varenicline (CHANTIX) 1 mg tablet 2022-07 19:45: 32 Yes 1mg Q.5D Take 1 tablet (1 mg total) by mouth 2 (two) times daily Give with meals and with a full glass of water.. [facility] albuterol HFA (VENTOLIN HFA) 90 mcg/actuati on inhaler 2022-07 19:45: 32 Yes 1{puff} Inhale 1 puff by mouth via inhaler every 6 (six) hours as needed for Wheezing. [facility] fluticasone -umeclidin- vilanter (Trelegy Ellipta) 200-62.5-25 mcg DsDv 2022-07 19:45: 32 Yes QD Inhale by mouth via inhaler daily. [facility] atorvastati n (LIPITOR) 20 MG tablet 2022-07 19:45: 32 Yes 20mg QD Take 1 tablet (20 mg total) by mouth daily. [facility] metoprolol succinate (TOPROL-XL) 25 MG 24 hr tablet 2022-07 19:45: 32 Yes 25mg QD Take 1 tablet (25 mg total) by mouth daily. [facility] varenicline (CHANTIX) 1 mg tablet 2022-07 19:45: 32 Yes 1mg Q.5D Take 1 tablet (1 mg total) by mouth 2 (two) times daily Give with meals and with a full glass of water.. [facility] albuterol HFA (VENTOLIN HFA) 90 mcg/actuati on inhaler 2022-07 19:45: 32 Yes 1{puff} Inhale 1 puff by mouth via inhaler every 6 (six) hours as needed for Wheezing. [facility] fluticasone -umeclidin- vilanter (Trelegy Ellipta) 200-62.5-25 mcg DsDv 2022-07 19:45: 32 Yes QD Inhale by mouth via inhaler daily. [facility] atorvastati n (LIPITOR) 20 MG tablet 2022-07 19:45: 32 Yes 20mg QD Take 1 tablet (20 mg total) by mouth daily. [facility] metoprolol succinate (TOPROL-XL) 25 MG 24 hr tablet 2022-07 19:45: 32 Yes 25mg QD Take 1 tablet (25 mg total) by mouth daily. [facility] varenicline (CHANTIX) 1 mg tablet 2022-07 19:45: 32 Yes 1mg Q.5D Take 1 tablet (1 mg total) by mouth 2 (two) times daily Give with meals and with a full glass of water.. [facility] albuterol HFA (VENTOLIN HFA) 90 mcg/actuati on inhaler 2022-07 19:45: 32 Yes 1{puff} Inhale 1 puff by mouth via inhaler every 6 (six) hours as needed for Wheezing. [facility] fluticasone -umeclidin- vilanter (Trelegy Ellipta) 200-62.5-25 mcg DsDv 2022-07 19:45: 32 Yes QD Inhale by mouth via inhaler daily. [facility] atorvastati n (LIPITOR) 20 MG tablet 2022-07 19:45: 32 Yes 20mg QD Take 1 tablet (20 mg total) by mouth daily. [facility] metoprolol succinate (TOPROL-XL) 25 MG 24 hr tablet 2022-07 19:45: 32 Yes 25mg QD Take 1 tablet (25 mg total) by mouth daily. [facility] varenicline (CHANTIX) 1 mg tablet 2022-07 19:45: 32 Yes 1mg Q.5D Take 1 tablet (1 mg total) by mouth 2 (two) times daily Give with meals and with a full glass of water.. [facility] albuterol HFA (VENTOLIN HFA) 90 mcg/actuati on inhaler 2022-07 19:45: 32 Yes 1{puff} Inhale 1 puff by mouth via inhaler every 6 (six) hours as needed for Wheezing. [facility] fluticasone -umeclidin- vilanter (Trelegy Ellipta) 200-62.5-25 mcg DsDv 2022-07 19:45: 32 Yes QD Inhale by mouth via inhaler daily. [facility] atorvastati n (LIPITOR) 20 MG tablet 2022-07 19:45: 32 Yes 20mg QD Take 1 tablet (20 mg total) by mouth daily. [facility] metoprolol succinate (TOPROL-XL) 25 MG 24 hr tablet 2022-07 19:45: 32 Yes 25mg QD Take 1 tablet (25 mg total) by mouth daily. [facility] varenicline (CHANTIX) 1 mg tablet 2022-07 19:45: 32 Yes 1mg Q.5D Take 1 tablet (1 mg total) by mouth 2 (two) times daily Give with meals and with a full glass of water.. [facility] albuterol HFA (VENTOLIN HFA) 90 mcg/actuati on inhaler 2022-07 19:45: 32 Yes 1{puff} Inhale 1 puff by mouth via inhaler every 6 (six) hours as needed for Wheezing. [facility] fluticasone -umeclidin- vilanter (Trelegy Ellipta) 200-62.5-25 mcg DsDv 2022-07 19:45: 32 Yes QD Inhale by mouth via inhaler daily. [facility] atorvastati n (LIPITOR) 20 MG tablet 2022-07 19:45: 32 Yes 20mg QD Take 1 tablet (20 mg total) by mouth daily. [facility] metoprolol succinate (TOPROL-XL) 25 MG 24 hr tablet 2022-07 19:45: 32 Yes 25mg QD Take 1 tablet (25 mg total) by mouth daily. [facility] varenicline (CHANTIX) 1 mg tablet 2022-07 19:45: 32 Yes 1mg Q.5D Take 1 tablet (1 mg total) by mouth 2 (two) times daily Give with meals and with a full glass of water.. [facility] albuterol HFA (VENTOLIN HFA) 90 mcg/actuati on inhaler 2022-07 19:45: 32 Yes 1{puff} Inhale 1 puff by mouth via inhaler every 6 (six) hours as needed for Wheezing. [facility] fluticasone -umeclidin- vilanter (Trelegy Ellipta) 200-62.5-25 mcg DsDv 2022-07 19:45: 32 Yes QD Inhale by mouth via inhaler daily. [facility] atorvastati n (LIPITOR) 20 MG tablet 2022-07 19:45: 32 Yes 20mg QD Take 1 tablet (20 mg total) by mouth daily. [facility] metoprolol succinate (TOPROL-XL) 25 MG 24 hr tablet 2022-07 19:45: 32 Yes 25mg QD Take 1 tablet (25 mg total) by mouth daily. [facility] varenicline (CHANTIX) 1 mg tablet 2022-07 19:45: 32 Yes 1mg Q.5D Take 1 tablet (1 mg total) by mouth 2 (two) times daily Give with meals and with a full glass of water.. [facility] albuterol HFA (VENTOLIN HFA) 90 mcg/actuati on inhaler 2022-07 19:45: 32 Yes 1{puff} Inhale 1 puff by mouth via inhaler every 6 (six) hours as needed for Wheezing. [facility] fluticasone -umeclidin- vilanter (Trelegy Ellipta) 200-62.5-25 mcg DsDv 2022-07 19:45: 32 Yes QD Inhale by mouth via inhaler daily. [facility] atorvastati n (LIPITOR) 20 MG tablet 2022-07 19:45: 32 Yes 20mg QD Take 1 tablet (20 mg total) by mouth daily. [facility] metoprolol succinate (TOPROL-XL) 25 MG 24 hr tablet 2022-07 19:45: 32 Yes 25mg QD Take 1 tablet (25 mg total) by mouth daily. [facility] varenicline (CHANTIX) 1 mg tablet 2022-07 19:45: 32 Yes 1mg Q.5D Take 1 tablet (1 mg total) by mouth 2 (two) times daily Give with meals and with a full glass of water.. [facility] albuterol HFA (VENTOLIN HFA) 90 mcg/actuati on inhaler 2022-07 19:45: 32 Yes 1{puff} Inhale 1 puff by mouth via inhaler every 6 (six) hours as needed for Wheezing. [facility] fluticasone -umeclidin- vilanter (Trelegy Ellipta) 200-62.5-25 mcg DsDv 2022-07 19:45: 32 Yes QD Inhale by mouth via inhaler daily. [facility] atorvastati n (LIPITOR) 20 MG tablet 2022-07 19:45: 32 Yes 20mg QD Take 1 tablet (20 mg total) by mouth daily. [facility] metoprolol succinate (TOPROL-XL) 25 MG 24 hr tablet 2022-07 19:45: 32 Yes 25mg QD Take 1 tablet (25 mg total) by mouth daily. [facility] varenicline (CHANTIX) 1 mg tablet 2022-07 19:45: 32 Yes 1mg Q.5D Take 1 tablet (1 mg total) by mouth 2 (two) times daily Give with meals and with a full glass of water.. [facility] albuterol HFA (VENTOLIN HFA) 90 mcg/actuati on inhaler 2022-07 19:45: 32 Yes 1{puff} Inhale 1 puff by mouth via inhaler every 6 (six) hours as needed for Wheezing. [facility] fluticasone -umeclidin- vilanter (Trelegy Ellipta) 200-62.5-25 mcg DsDv 2022-07 19:45: 32 Yes QD Inhale by mouth via inhaler daily. [facility] atorvastati n (LIPITOR) 20 MG tablet 2022-07 19:45: 32 Yes 20mg QD Take 1 tablet (20 mg total) by mouth daily. [facility] metoprolol succinate (TOPROL-XL) 25 MG 24 hr tablet 2022-07 19:45: 32 Yes 25mg QD Take 1 tablet (25 mg total) by mouth daily. [facility] varenicline (CHANTIX) 1 mg tablet 2022-07 19:45: 32 Yes 1mg Q.5D Take 1 tablet (1 mg total) by mouth 2 (two) times daily Give with meals and with a full glass of water.. [facility] albuterol HFA (VENTOLIN HFA) 90 mcg/actuati on inhaler 2022-07 19:45: 32 Yes 1{puff} Inhale 1 puff by mouth via inhaler every 6 (six) hours as needed for Wheezing. [facility] fluticasone -umeclidin- vilanter (Trelegy Ellipta) 200-62.5-25 mcg DsDv 2022-07 19:45: 32 Yes QD Inhale by mouth via inhaler daily. [facility] atorvastati n (LIPITOR) 20 MG tablet 2022-07 19:45: 32 Yes 20mg QD Take 1 tablet (20 mg total) by mouth daily. [facility] metoprolol succinate (TOPROL-XL) 25 MG 24 hr tablet 2022-07 19:45: 32 Yes 25mg QD Take 1 tablet (25 mg total) by mouth daily. [facility] varenicline (CHANTIX) 1 mg tablet 2022-07 19:45: 32 Yes 1mg Q.5D Take 1 tablet (1 mg total) by mouth 2 (two) times daily Give with meals and with a full glass of water.. [facility] albuterol HFA (VENTOLIN HFA) 90 mcg/actuati on inhaler 2022-07 19:45: 32 Yes 1{puff} Inhale 1 puff by mouth via inhaler every 6 (six) hours as needed for Wheezing. [facility] fluticasone -umeclidin- vilanter (Trelegy Ellipta) 200-62.5-25 mcg DsDv 2022-07 19:45: 32 Yes QD Inhale by mouth via inhaler daily. [facility] atorvastati n (LIPITOR) 20 MG tablet 2022-07 19:45: 32 Yes 20mg QD Take 1 tablet (20 mg total) by mouth daily. [facility] acetaminoph en-codeine (TYLENOL #3) 300-30 mg per tablet 2022-07 18:02: 00 06-16 00:00 :00 No 1{tbl} Take 1 tablet by mouth every 4 (four) hours as needed for Pain. [facility] acetaminoph en-codeine (TYLENOL #3) 300-30 mg per tablet 2022-07 18:02: 00 06-16 00:00 :00 No 1{tbl} Take 1 tablet by mouth every 4 (four) hours as needed for Pain. [facility] acetaminoph en-codeine (TYLENOL #3) 300-30 mg per tablet 2022-07 18:02: 00 06-16 00:00 :00 No 1{tbl} Take 1 tablet by mouth every 4 (four) hours as needed for Pain. [facility] acetaminoph en-codeine (TYLENOL #3) 300-30 mg per tablet 2022-07 18:02: 00 06-16 00:00 :00 No 1{tbl} Take 1 tablet by mouth every 4 (four) hours as needed for Pain. [facility] acetaminoph en-codeine (TYLENOL #3) 300-30 mg per tablet 2022-07 18:02: 00 06-16 00:00 :00 No 1{tbl} Take 1 tablet by mouth every 4 (four) hours as needed for Pain. [facility] acetaminoph en-codeine (TYLENOL #3) 300-30 mg per tablet 2022-07 18:02: 00 06-16 00:00 :00 No 1{tbl} Take 1 tablet by mouth every 4 (four) hours as needed for Pain. [facility] acetaminoph en-codeine (TYLENOL #3) 300-30 mg per tablet 2022-07 18:02: 00 06-16 00:00 :00 No 1{tbl} Take 1 tablet by mouth every 4 (four) hours as needed for Pain. [facility] acetaminoph en-codeine (TYLENOL #3) 300-30 mg per tablet 2022-07 18:02: 00 06-16 00:00 :00 No 1{tbl} Take 1 tablet by mouth every 4 (four) hours as needed for Pain. [facility] acetaminoph en-codeine (TYLENOL #3) 300-30 mg per tablet 2022-07 18:02: 00 06-16 00:00 :00 No 1{tbl} Take 1 tablet by mouth every 4 (four) hours as needed for Pain. [facility] acetaminoph en-codeine (TYLENOL #3) 300-30 mg per tablet 2022-07 18:02: 00 06-16 00:00 :00 No 1{tbl} Take 1 tablet by mouth every 4 (four) hours as needed for Pain. [facility] acetaminoph en-codeine (TYLENOL #3) 300-30 mg per tablet 2022-07 18:02: 00 06-16 00:00 :00 No 1{tbl} Take 1 tablet by mouth every 4 (four) hours as needed for Pain. [facility] acetaminoph en-codeine (TYLENOL #3) 300-30 mg per tablet 2022-07 18:02: 00 06-16 00:00 :00 No 1{tbl} Take 1 tablet by mouth every 4 (four) hours as needed for Pain. [facility] DULoxetine (CYMBALTA) 30 MG capsule 2022-07 00:00: 00 09-14 23:59 :00 Yes 30mg QD Take 1 capsule (30 mg total) by mouth daily for 90 days. [facility] DULoxetine (CYMBALTA) 30 MG capsule 2022-07 00:00: 00 09-14 23:59 :00 Yes 30mg QD Take 1 capsule (30 mg total) by mouth daily for 90 days. [facility] DULoxetine (CYMBALTA) 30 MG capsule 2022-07 00:00: 00 09-14 23:59 :00 Yes 30mg QD Take 1 capsule (30 mg total) by mouth daily for 90 days. [facility] DULoxetine (CYMBALTA) 30 MG capsule 2022-07 00:00: 00 09-14 23:59 :00 Yes 30mg QD Take 1 capsule (30 mg total) by mouth daily for 90 days. [facility] DULoxetine (CYMBALTA) 30 MG capsule 2022-07 00:00: 00 09-14 23:59 :00 Yes 30mg QD Take 1 capsule (30 mg total) by mouth daily for 90 days. [facility] DULoxetine (CYMBALTA) 30 MG capsule 2022-07 00:00: 00 09-14 23:59 :00 Yes 30mg QD Take 1 capsule (30 mg total) by mouth daily for 90 days. [facility] DULoxetine (CYMBALTA) 30 MG capsule 2022-07 00:00: 00 09-14 23:59 :00 Yes 30mg QD Take 1 capsule (30 mg total) by mouth daily for 90 days. [facility] DULoxetine (CYMBALTA) 30 MG capsule 2022-07 00:00: 00 09-14 23:59 :00 Yes 30mg QD Take 1 capsule (30 mg total) by mouth daily for 90 days. [facility] DULoxetine (CYMBALTA) 30 MG capsule 2022-07 00:00: 00 09-14 23:59 :00 Yes 30mg QD Take 1 capsule (30 mg total) by mouth daily for 90 days. [facility] DULoxetine (CYMBALTA) 30 MG capsule 2022-07 00:00: 00 09-14 23:59 :00 Yes 30mg QD Take 1 capsule (30 mg total) by mouth daily for 90 days. [facility] DULoxetine (CYMBALTA) 30 MG capsule 2022-07 00:00: 00 09-14 23:59 :00 Yes 30mg QD Take 1 capsule (30 mg total) by mouth daily for 90 days. [facility] DULoxetine (CYMBALTA) 30 MG capsule 2022-07 00:00: 00 09-14 23:59 :00 Yes 30mg QD Take 1 capsule (30 mg total) by mouth daily for 90 days. [facility] metroNIDAZO LE (FLAGYL) 500 MG tablet 2022-07 00:00: 00 07-04 23:59 :00 No 500mg Take 1 tablet (500 mg total) by mouth every 8 (eight) hours for 18 days. [facility] ciprofloxac in HCl (CIPRO) 500 MG tablet 2022-07 00:00: 00 07-04 23:59 :00 No 500mg Q.5D Take 1 tablet (500 mg total) by mouth 2 (two) times daily for 18 days. [facility] metroNIDAZO LE (FLAGYL) 500 MG tablet 2022-07 00:00: 00 07-04 23:59 :00 No 500mg Take 1 tablet (500 mg total) by mouth every 8 (eight) hours for 18 days. [facility] ciprofloxac in HCl (CIPRO) 500 MG tablet 2022-07 00:00: 00 07-04 23:59 :00 No 500mg Q.5D Take 1 tablet (500 mg total) by mouth 2 (two) times daily for 18 days. [facility] metroNIDAZO LE (FLAGYL) 500 MG tablet 2022-07 00:00: 00 07-04 23:59 :00 No 500mg Take 1 tablet (500 mg total) by mouth every 8 (eight) hours for 18 days. [facility] ciprofloxac in HCl (CIPRO) 500 MG tablet 2022-07 00:00: 00 07-04 23:59 :00 No 500mg Q.5D Take 1 tablet (500 mg total) by mouth 2 (two) times daily for 18 days. [facility] metroNIDAZO LE (FLAGYL) 500 MG tablet 2022-07 00:00: 00 07-04 23:59 :00 No 500mg Take 1 tablet (500 mg total) by mouth every 8 (eight) hours for 18 days. [facility] ciprofloxac in HCl (CIPRO) 500 MG tablet 2022-07 00:00: 00 07-04 23:59 :00 No 500mg Q.5D Take 1 tablet (500 mg total) by mouth 2 (two) times daily for 18 days. [facility] metroNIDAZO LE (FLAGYL) 500 MG tablet 2022-07 00:00: 00 07-04 23:59 :00 No 500mg Take 1 tablet (500 mg total) by mouth every 8 (eight) hours for 18 days. [facility] ciprofloxac in HCl (CIPRO) 500 MG tablet 2022-07 00:00: 00 07-04 23:59 :00 No 500mg Q.5D Take 1 tablet (500 mg total) by mouth 2 (two) times daily for 18 days. [facility] metroNIDAZO LE (FLAGYL) 500 MG tablet 2022-07 00:00: 00 07-04 23:59 :00 No 500mg Take 1 tablet (500 mg total) by mouth every 8 (eight) hours for 18 days. [facility] ciprofloxac in HCl (CIPRO) 500 MG tablet 2022-07 00:00: 00 07-04 23:59 :00 No 500mg Q.5D Take 1 tablet (500 mg total) by mouth 2 (two) times daily for 18 days. [facility] metroNIDAZO LE (FLAGYL) 500 MG tablet 2022-07 00:00: 00 07-04 23:59 :00 No 500mg Take 1 tablet (500 mg total) by mouth every 8 (eight) hours for 18 days. [facility] ciprofloxac in HCl (CIPRO) 500 MG tablet 2022-07 00:00: 00 07-04 23:59 :00 No 500mg Q.5D Take 1 tablet (500 mg total) by mouth 2 (two) times daily for 18 days. [facility] metroNIDAZO LE (FLAGYL) 500 MG tablet 2022-07 00:00: 00 07-04 23:59 :00 No 500mg Take 1 tablet (500 mg total) by mouth every 8 (eight) hours for 18 days. [facility] ciprofloxac in HCl (CIPRO) 500 MG tablet 2022-07 00:00: 00 07-04 23:59 :00 No 500mg Q.5D Take 1 tablet (500 mg total) by mouth 2 (two) times daily for 18 days. [facility] metroNIDAZO LE (FLAGYL) 500 MG tablet 2022-07 00:00: 00 07-04 23:59 :00 No 500mg Take 1 tablet (500 mg total) by mouth every 8 (eight) hours for 18 days. [facility] ciprofloxac in HCl (CIPRO) 500 MG tablet 2022-07 00:00: 00 07-04 23:59 :00 No 500mg Q.5D Take 1 tablet (500 mg total) by mouth 2 (two) times daily for 18 days. [facility] metroNIDAZO LE (FLAGYL) 500 MG tablet 2022-07 00:00: 00 07-04 23:59 :00 Yes 500mg Take 1 tablet (500 mg total) by mouth every 8 (eight) hours for 18 days. [facility] ciprofloxac in HCl (CIPRO) 500 MG tablet 2022-07 00:00: 00 07-04 23:59 :00 Yes 500mg Q.5D Take 1 tablet (500 mg total) by mouth 2 (two) times daily for 18 days. [facility] metroNIDAZO LE (FLAGYL) 500 MG tablet 2022-07 00:00: 00 07-04 23:59 :00 Yes 500mg Take 1 tablet (500 mg total) by mouth every 8 (eight) hours for 18 days. [facility] ciprofloxac in HCl (CIPRO) 500 MG tablet 2022-07 00:00: 00 07-04 23:59 :00 Yes 500mg Q.5D Take 1 tablet (500 mg total) by mouth 2 (two) times daily for 18 days. [facility] metroNIDAZO LE (FLAGYL) 500 MG tablet 2022-07 00:00: 00 07-04 23:59 :00 No 500mg Take 1 tablet (500 mg total) by mouth every 8 (eight) hours for 18 days. [facility] ciprofloxac in HCl (CIPRO) 500 MG tablet 2022-07 00:00: 00 07-04 23:59 :00 No 500mg Q.5D Take 1 tablet (500 mg total) by mouth 2 (two) times daily for 18 days. [facility] cyclobenzap rine (FLEXERIL) 10 MG tablet 2022-07 00:00: 00 06-26 23:59 :00 No 10mg Q.[id number] 3D Take 1 tablet (10 mg total) by mouth 3 (three) times daily for 10 days. [facility] oxyCODONE (OXY-IR) 10 mg tablet 2022-07 00:00: 00 06-26 23:59 :00 No 10mg Take 1 tablet (10 mg total) by mouth every 8 (eight) hours as needed for up to 10 days. Max Daily Amount: 30 mg [facility] cyclobenzap rine (FLEXERIL) 10 MG tablet 2022-07 00:00: 00 06-26 23:59 :00 No 10mg Q.[id number] 3D Take 1 tablet (10 mg total) by mouth 3 (three) times daily for 10 days. [facility] oxyCODONE (OXY-IR) 10 mg tablet 2022-07 00:00: 00 06-26 23:59 :00 No 10mg Take 1 tablet (10 mg total) by mouth every 8 (eight) hours as needed for up to 10 days. Max Daily Amount: 30 mg [facility] cyclobenzap rine (FLEXERIL) 10 MG tablet 2022-07 00:00: 00 06-26 23:59 :00 No 10mg Q.[id number] 3D Take 1 tablet (10 mg total) by mouth 3 (three) times daily for 10 days. [facility] oxyCODONE (OXY-IR) 10 mg tablet 2022-07 00:00: 00 06-26 23:59 :00 No 10mg Take 1 tablet (10 mg total) by mouth every 8 (eight) hours as needed for up to 10 days. Max Daily Amount: 30 mg [facility] cyclobenzap rine (FLEXERIL) 10 MG tablet 2022-07 00:00: 00 06-26 23:59 :00 No 10mg Q.[id number] 3D Take 1 tablet (10 mg total) by mouth 3 (three) times daily for 10 days. [facility] oxyCODONE (OXY-IR) 10 mg tablet 2022-07 00:00: 00 06-26 23:59 :00 No 10mg Take 1 tablet (10 mg total) by mouth every 8 (eight) hours as needed for up to 10 days. Max Daily Amount: 30 mg [facility] cyclobenzap rine (FLEXERIL) 10 MG tablet 2022-07 00:00: 00 06-26 23:59 :00 No 10mg Q.[id number] 3D Take 1 tablet (10 mg total) by mouth 3 (three) times daily for 10 days. [facility] oxyCODONE (OXY-IR) 10 mg tablet 2022-07 00:00: 00 06-26 23:59 :00 No 10mg Take 1 tablet (10 mg total) by mouth every 8 (eight) hours as needed for up to 10 days. Max Daily Amount: 30 mg [facility] cyclobenzap rine (FLEXERIL) 10 MG tablet 2022-07 00:00: 00 06-26 23:59 :00 No 10mg Q.[id number] 3D Take 1 tablet (10 mg total) by mouth 3 (three) times daily for 10 days. [facility] oxyCODONE (OXY-IR) 10 mg tablet 2022-07 00:00: 00 06-26 23:59 :00 No 10mg Take 1 tablet (10 mg total) by mouth every 8 (eight) hours as needed for up to 10 days. Max Daily Amount: 30 mg [facility] cyclobenzap rine (FLEXERIL) 10 MG tablet 2022-07 00:00: 00 06-26 23:59 :00 No 10mg Q.[id number] [id number] 3D Take 1 tablet (10 mg total) by mouth 3 (three) times daily for 10 days. [facility] oxyCODONE (OXY-IR) 10 mg tablet 2022-07 00:00: 00 06-26 23:59 :00 No 10mg Take 1 tablet (10 mg total) by mouth every 8 (eight) hours as needed for up to 10 days. Max Daily Amount: 30 mg [facility] cyclobenzap rine (FLEXERIL) 10 MG tablet 2022-07 00:00: 00 06-26 23:59 :00 No 10mg Q.[id number] [id number] 3D Take 1 tablet (10 mg total) by mouth 3 (three) times daily for 10 days. [facility] oxyCODONE (OXY-IR) 10 mg tablet 2022-07 00:00: 00 06-26 23:59 :00 No 10mg Take 1 tablet (10 mg total) by mouth every 8 (eight) hours as needed for up to 10 days. Max Daily Amount: 30 mg [facility] cyclobenzap rine (FLEXERIL) 10 MG tablet 2022-07 00:00: 00 06-26 23:59 :00 No 10mg Q.[id number] 3D Take 1 tablet (10 mg total) by mouth 3 (three) times daily for 10 days. [facility] oxyCODONE (OXY-IR) 10 mg tablet 2022-07 00:00: 00 06-26 23:59 :00 No 10mg Take 1 tablet (10 mg total) by mouth every 8 (eight) hours as needed for up to 10 days. Max Daily Amount: 30 mg [facility] cyclobenzap rine (FLEXERIL) 10 MG tablet 2022-07 00:00: 00 06-26 23:59 :00 Yes 10mg Q.[id number] 3D Take 1 tablet (10 mg total) by mouth 3 (three) times daily for 10 days. [facility] oxyCODONE (OXY-IR) 10 mg tablet 2022-07 00:00: 00 06-26 23:59 :00 Yes 10mg Take 1 tablet (10 mg total) by mouth every 8 (eight) hours as needed for up to 10 days. Max Daily Amount: 30 mg [facility] cyclobenzap rine (FLEXERIL) 10 MG tablet 2022-07 00:00: 00 06-26 23:59 :00 Yes 10mg Q.[id number] 3D Take 1 tablet (10 mg total) by mouth 3 (three) times daily for 10 days. [facility] oxyCODONE (OXY-IR) 10 mg tablet 2022-07 00:00: 00 06-26 23:59 :00 Yes 10mg Take 1 tablet (10 mg total) by mouth every 8 (eight) hours as needed for up to 10 days. Max Daily Amount: 30 mg [facility] cyclobenzap rine (FLEXERIL) 10 MG tablet 2022-07 00:00: 00 06-26 23:59 :00 No 10mg Q.[id number] 3D Take 1 tablet (10 mg total) by mouth 3 (three) times daily for 10 days. [facility] oxyCODONE (OXY-IR) 10 mg tablet 2022-07 00:00: 00 06-26 23:59 :00 No 10mg Take 1 tablet (10 mg total) by mouth every 8 (eight) hours as needed for up to 10 days. Max Daily Amount: 30 mg [facility] nystatin (MYCOSTATIN ) 100,000 unit/mL suspension 2022-07 00:00: 00 06-21 23:59 :00 No [id number] Q.25D Take 5 mLs (500,000 Units total) by mouth 4 (four) times daily for 5 days. [facility] nystatin (MYCOSTATIN ) 100,000 unit/mL suspension 2022-07 00:00: 00 06-21 23:59 :00 No [id number] Q.25D Take 5 mLs (500,000 Units total) by mouth 4 (four) times daily for 5 days. [facility] nystatin (MYCOSTATIN ) 100,000 unit/mL suspension 2022-07 00:00: 00 06-21 23:59 :00 No [id number] Q.25D Take 5 mLs (500,000 Units total) by mouth 4 (four) times daily for 5 days. [facility] nystatin (MYCOSTATIN ) 100,000 unit/mL suspension 2022-07 00:00: 00 06-21 23:59 :00 No [id number] Q.25D Take 5 mLs (500,000 Units total) by mouth 4 (four) times daily for 5 days. [facility] nystatin (MYCOSTATIN ) 100,000 unit/mL suspension 2022-07 00:00: 00 06-21 23:59 :00 No [id number] Q.25D Take 5 mLs (500,000 Units total) by mouth 4 (four) times daily for 5 days. [facility] nystatin (MYCOSTATIN ) 100,000 unit/mL suspension 2022-07 00:00: 00 06-21 23:59 :00 No [id number] Q.25D Take 5 mLs (500,000 Units total) by mouth 4 (four) times daily for 5 days. [facility] nystatin (MYCOSTATIN ) 100,000 unit/mL suspension 2022-07 00:00: 00 06-21 23:59 :00 No [id number] Q.25D Take 5 mLs (500,000 Units total) by mouth 4 (four) times daily for 5 days. [facility] nystatin (MYCOSTATIN ) 100,000 unit/mL suspension 2022-07 00:00: 00 06-21 23:59 :00 No [id number] Q.25D Take 5 mLs (500,000 Units total) by mouth 4 (four) times daily for 5 days. [facility] nystatin (MYCOSTATIN ) 100,000 unit/mL suspension 2022-07 00:00: 00 06-21 23:59 :00 No [id number] Q.25D Take 5 mLs (500,000 Units total) by mouth 4 (four) times daily for 5 days. [facility] nystatin (MYCOSTATIN ) 100,000 unit/mL suspension 2022-07 00:00: 00 06-21 23:59 :00 Yes [id number] Q.25D Take 5 mLs (500,000 Units total) by mouth 4 (four) times daily for 5 days. [facility] nystatin (MYCOSTATIN ) 100,000 unit/mL suspension 2022-07 00:00: 00 06-21 23:59 :00 Yes [id number] Q.25D Take 5 mLs (500,000 Units total) by mouth 4 (four) times daily for 5 days. [facility] nystatin (MYCOSTATIN ) 100,000 unit/mL suspension 2022-07 00:00: 00 06-21 23:59 :00 No [id number] Q.25D Take 5 mLs (500,000 Units total) by mouth 4 (four) times daily for 5 days. [facility] dexAMETHaso ne (DECADRON) 2 MG tablet 2022-07 00:00: 00 06-08 23:59 :00 No 1mg Take 0.5 tablets (1 mg total) by mouth 2 (two) times daily with breakfast and dinner for 2 days. [facility] dexAMETHaso ne (DECADRON) 2 MG tablet 2022-07 00:00: 00 06-08 23:59 :00 No 1mg Take 0.5 tablets (1 mg total) by mouth 2 (two) times daily with breakfast and dinner for 2 days. [facility] dexAMETHaso ne (DECADRON) 2 MG tablet 2022-07 00:00: 00 06-08 23:59 :00 No 1mg Take 0.5 tablets (1 mg total) by mouth 2 (two) times daily with breakfast and dinner for 2 days. [facility] dexAMETHaso ne (DECADRON) 2 MG tablet 2022-07 00:00: 00 06-08 23:59 :00 No 1mg Take 0.5 tablets (1 mg total) by mouth 2 (two) times daily with breakfast and dinner for 2 days. [facility] dexAMETHaso ne (DECADRON) 2 MG tablet 2022-07 00:00: 00 06-08 23:59 :00 No 1mg Take 0.5 tablets (1 mg total) by mouth 2 (two) times daily with breakfast and dinner for 2 days. [facility] dexAMETHaso ne (DECADRON) 2 MG tablet 2022-07 00:00: 00 06-08 23:59 :00 No 1mg Take 0.5 tablets (1 mg total) by mouth 2 (two) times daily with breakfast and dinner for 2 days. [facility] dexAMETHaso ne (DECADRON) 2 MG tablet 2022-07 00:00: 00 06-08 23:59 :00 No 1mg Take 0.5 tablets (1 mg total) by mouth 2 (two) times daily with breakfast and dinner for 2 days. [facility] dexAMETHaso ne (DECADRON) 2 MG tablet 2022-07 00:00: 00 06-08 23:59 :00 No 1mg Take 0.5 tablets (1 mg total) by mouth 2 (two) times daily with breakfast and dinner for 2 days. [facility] dexAMETHaso ne (DECADRON) 2 MG tablet 2022-07 00:00: 00 06-08 23:59 :00 No 1mg Take 0.5 tablets (1 mg total) by mouth 2 (two) times daily with breakfast and dinner for 2 days. [facility] dexAMETHaso ne (DECADRON) 2 MG tablet 2022-07 00:00: 00 06-08 23:59 :00 Yes 1mg Take 0.5 tablets (1 mg total) by mouth 2 (two) times daily with breakfast and dinner for 2 days. [facility] dexAMETHaso ne (DECADRON) 2 MG tablet 2022-07 00:00: 00 06-08 23:59 :00 Yes 1mg Take 0.5 tablets (1 mg total) by mouth 2 (two) times daily with breakfast and dinner for 2 days. [facility] dexAMETHaso ne (DECADRON) 2 MG tablet 2022-07 00:00: 00 06-08 23:59 :00 No 1mg Take 0.5 tablets (1 mg total) by mouth 2 (two) times daily with breakfast and dinner for 2 days. [facility] dexAMETHaso ne (DECADRON) 2 MG tablet 2022-07 00:00: 00 06-08 23:59 :00 No 1mg Take 0.5 tablets (1 mg total) by mouth 2 (two) times daily with breakfast and dinner for 2 days. [facility] dexAMETHaso ne (DECADRON) 2 MG tablet 2022-07 00:00: 00 06-08 23:59 :00 No 1mg Take 0.5 tablets (1 mg total) by mouth 2 (two) times daily with breakfast and dinner for 2 days. [facility] dexAMETHaso ne (DECADRON) 2 MG tablet 2022-07 00:00: 00 06-08 23:59 :00 No 1mg Take 0.5 tablets (1 mg total) by mouth 2 (two) times daily with breakfast and dinner for 2 days. [facility] dexAMETHaso ne (DECADRON) 2 MG tablet 2022-07 00:00: 00 06-06 23:59 :00 No 2mg Take 1 tablet (2 mg total) by mouth 2 (two) times daily with breakfast and dinner for 1 day. [facility] dexAMETHaso ne (DECADRON) 2 MG tablet 2022-07 00:00: 00 06-06 23:59 :00 No 2mg Take 1 tablet (2 mg total) by mouth 2 (two) times daily with breakfast and dinner for 1 day. [facility] dexAMETHaso ne (DECADRON) 2 MG tablet 2022-07 00:00: 00 06-06 23:59 :00 No 2mg Take 1 tablet (2 mg total) by mouth 2 (two) times daily with breakfast and dinner for 1 day. [facility] dexAMETHaso ne (DECADRON) 2 MG tablet 2022-07 00:00: 00 06-06 23:59 :00 No 2mg Take 1 tablet (2 mg total) by mouth 2 (two) times daily with breakfast and dinner for 1 day. [facility] dexAMETHaso ne (DECADRON) 2 MG tablet 2022-07 00:00: 00 06-06 23:59 :00 No 2mg Take 1 tablet (2 mg total) by mouth 2 (two) times daily with breakfast and dinner for 1 day. [facility] dexAMETHaso ne (DECADRON) 2 MG tablet 2022-07 00:00: 00 06-06 23:59 :00 No 2mg Take 1 tablet (2 mg total) by mouth 2 (two) times daily with breakfast and dinner for 1 day. [facility] dexAMETHaso ne (DECADRON) 2 MG tablet 2022-07 00:00: 00 06-06 23:59 :00 No 2mg Take 1 tablet (2 mg total) by mouth 2 (two) times daily with breakfast and dinner for 1 day. [facility] dexAMETHaso ne (DECADRON) 2 MG tablet 2022-07 00:00: 00 06-06 23:59 :00 No 2mg Take 1 tablet (2 mg total) by mouth 2 (two) times daily with breakfast and dinner for 1 day. [facility] dexAMETHaso ne (DECADRON) 2 MG tablet 2022-07 00:00: 00 06-06 23:59 :00 No 2mg Take 1 tablet (2 mg total) by mouth 2 (two) times daily with breakfast and dinner for 1 day. [facility] dexAMETHaso ne (DECADRON) 2 MG tablet 2022-07 00:00: 00 06-06 23:59 :00 Yes 2mg Take 1 tablet (2 mg total) by mouth 2 (two) times daily with breakfast and dinner for 1 day. [facility] dexAMETHaso ne (DECADRON) 2 MG tablet 2022-07 00:00: 00 06-06 23:59 :00 Yes 2mg Take 1 tablet (2 mg total) by mouth 2 (two) times daily with breakfast and dinner for 1 day. [facility] dexAMETHaso ne (DECADRON) 2 MG tablet 2022-07 00:00: 00 06-06 23:59 :00 No 2mg Take 1 tablet (2 mg total) by mouth 2 (two) times daily with breakfast and dinner for 1 day. [facility] dexAMETHaso ne (DECADRON) 2 MG tablet 2022-07 00:00: 00 06-06 23:59 :00 No 2mg Take 1 tablet (2 mg total) by mouth 2 (two) times daily with breakfast and dinner for 1 day. [facility] dexAMETHaso ne (DECADRON) 2 MG tablet 2022-07 00:00: 00 06-06 23:59 :00 No 2mg Take 1 tablet (2 mg total) by mouth 2 (two) times daily with breakfast and dinner for 1 day. [facility] dexAMETHaso ne (DECADRON) 2 MG tablet 2022-07 00:00: 00 06-06 23:59 :00 No 2mg Take 1 tablet (2 mg total) by mouth 2 (two) times daily with breakfast and dinner for 1 day. [facility] metoprolol succinate (TOPROL-XL) 25 MG 24 hr tablet 2022-07 17:44: 21 Yes 25mg QD Take 1 tablet (25 mg total) by mouth daily. [facility] varenicline (CHANTIX) 1 mg tablet 2022-07 17:44: 21 Yes 1mg Q.5D Take 1 tablet (1 mg total) by mouth 2 (two) times daily Give with meals and with a full glass of water.. [facility] albuterol HFA (VENTOLIN HFA) 90 mcg/actuati on inhaler 2022-07 17:44: 21 Yes 1{puff} Inhale 1 puff by mouth via inhaler every 6 (six) hours as needed for Wheezing. [facility] fluticasone -umeclidin- vilanter (Trelegy Ellipta) 200-62.5-25 mcg DsDv 2022-07 17:44: 21 Yes QD Inhale by mouth via inhaler daily. [facility] atorvastati n (LIPITOR) 20 MG tablet 2022-07 17:44: 21 Yes 20mg QD Take 1 tablet (20 mg total) by mouth daily. [facility] acetaminoph en-codeine (TYLENOL #3) 300-30 mg per tablet 2022-07 17:44: 21 Yes 1{tbl} Take 1 tablet by mouth every 4 (four) hours as needed for Pain. [facility] metoprolol succinate (TOPROL-XL) 25 MG 24 hr tablet 2022-07 17:44: 21 Yes 25mg QD Take 1 tablet (25 mg total) by mouth daily. [facility] varenicline (CHANTIX) 1 mg tablet 2022-07 17:44: 21 Yes 1mg Q.5D Take 1 tablet (1 mg total) by mouth 2 (two) times daily Give with meals and with a full glass of water.. [facility] albuterol HFA (VENTOLIN HFA) 90 mcg/actuati on inhaler 2022-07 17:44: 21 Yes 1{puff} Inhale 1 puff by mouth via inhaler every 6 (six) hours as needed for Wheezing. [facility] fluticasone -umeclidin- vilanter (Trelegy Ellipta) 200-62.5-25 mcg DsDv 2022-07 17:44: 21 Yes QD Inhale by mouth via inhaler daily. [facility] atorvastati n (LIPITOR) 20 MG tablet 2022-07 17:44: 21 Yes 20mg QD Take 1 tablet (20 mg total) by mouth daily. [facility] acetaminoph en-codeine (TYLENOL #3) 300-30 mg per tablet 2022-07 17:44: 21 Yes 1{tbl} Take 1 tablet by mouth every 4 (four) hours as needed for Pain. [facility] metoprolol succinate (TOPROL-XL) 25 MG 24 hr tablet 2022-07 17:44: 21 Yes 25mg QD Take 1 tablet (25 mg total) by mouth daily. [facility] varenicline (CHANTIX) 1 mg tablet 2022-07 17:44: 21 Yes 1mg Q.5D Take 1 tablet (1 mg total) by mouth 2 (two) times daily Give with meals and with a full glass of water.. [facility] albuterol HFA (VENTOLIN HFA) 90 mcg/actuati on inhaler 2022-07 17:44: 21 Yes 1{puff} Inhale 1 puff by mouth via inhaler every 6 (six) hours as needed for Wheezing. [facility] fluticasone -umeclidin- vilanter (Trelegy Ellipta) 200-62.5-25 mcg DsDv 2022-07 17:44: 21 Yes QD Inhale by mouth via inhaler daily. [facility] atorvastati n (LIPITOR) 20 MG tablet 2022-07 17:44: 21 Yes 20mg QD Take 1 tablet (20 mg total) by mouth daily. [facility] acetaminoph en-codeine (TYLENOL #3) 300-30 mg per tablet 2022-07 17:44: 21 Yes 1{tbl} Take 1 tablet by mouth every 4 (four) hours as needed for Pain. [facility] senna (SENOKOT) 8.6 mg tablet 2022-07 00:00: 00 06-18 23:59 :00 No 17.2mg Q.5D Take 2 tablets (17.2 mg total) by mouth 2 (two) times daily for 14 days. [facility] senna (SENOKOT) 8.6 mg tablet 2022-07 00:00: 00 06-18 23:59 :00 No 17.2mg Q.5D Take 2 tablets (17.2 mg total) by mouth 2 (two) times daily for 14 days. [facility] senna (SENOKOT) 8.6 mg tablet 2022-07 00:00: 00 06-18 23:59 :00 No 17.2mg Q.5D Take 2 tablets (17.2 mg total) by mouth 2 (two) times daily for 14 days. [facility] senna (SENOKOT) 8.6 mg tablet 2022-07 00:00: 00 06-18 23:59 :00 No 17.2mg Q.5D Take 2 tablets (17.2 mg total) by mouth 2 (two) times daily for 14 days. [facility] senna (SENOKOT) 8.6 mg tablet 2022-07 00:00: 00 06-18 23:59 :00 No 17.2mg Q.5D Take 2 tablets (17.2 mg total) by mouth 2 (two) times daily for 14 days. [facility] senna (SENOKOT) 8.6 mg tablet 2022-07 00:00: 00 06-18 23:59 :00 No 17.2mg Q.5D Take 2 tablets (17.2 mg total) by mouth 2 (two) times daily for 14 days. [facility] senna (SENOKOT) 8.6 mg tablet 2022-07 00:00: 00 06-18 23:59 :00 No 17.2mg Q.5D Take 2 tablets (17.2 mg total) by mouth 2 (two) times daily for 14 days. [facility] senna (SENOKOT) 8.6 mg tablet 2022-0716 00:00: 00 06-18 23:59 :00 No 17.2mg Q.5D Take 2 tablets (17.2 mg total) by mouth 2 (two) times daily for 14 days. [facility] senna (SENOKOT) 8.6 mg tablet 2022-07 00:00: 00 06-18 23:59 :00 No 17.2mg Q.5D Take 2 tablets (17.2 mg total) by mouth 2 (two) times daily for 14 days. [facility] senna (SENOKOT) 8.6 mg tablet 2022-07 00:00: 00 06-18 23:59 :00 Yes 17.2mg Q.5D Take 2 tablets (17.2 mg total) by mouth 2 (two) times daily for 14 days. [facility] senna (SENOKOT) 8.6 mg tablet 2022-07 00:00: 00 06-18 23:59 :00 Yes 17.2mg Q.5D Take 2 tablets (17.2 mg total) by mouth 2 (two) times daily for 14 days. [facility] senna (SENOKOT) 8.6 mg tablet 2022-07 00:00: 00 06-18 23:59 :00 Yes 17.2mg Q.5D Take 2 tablets (17.2 mg total) by mouth 2 (two) times daily for 14 days. [facility] senna (SENOKOT) 8.6 mg tablet 2022-0716 00:00: 00 06-18 23:59 :00 Yes 17.2mg Q.5D Take 2 tablets (17.2 mg total) by mouth 2 (two) times daily for 14 days. [facility] senna (SENOKOT) 8.6 mg tablet 2022-0716 00:00: 00 06-18 23:59 :00 No 17.2mg Q.5D Take 2 tablets (17.2 mg total) by mouth 2 (two) times daily for 14 days. [facility] senna (SENOKOT) 8.6 mg tablet 2022-07 00:00: 00 06-18 23:59 :00 No 17.2mg Q.5D Take 2 tablets (17.2 mg total) by mouth 2 (two) times daily for 14 days. [facility] cyclobenzap rine (FLEXERIL) 10 MG tablet 2022-07 00:00: 00 06-16 00:00 :00 No 10mg Q.[id number] 3D Take 1 tablet (10 mg total) by mouth 3 (three) times daily for 10 days. [facility] methocarbam oL (ROBAXIN) 500 MG tablet 2022-07 00:00: 00 06-16 00:00 :00 No 500mg Q.25D Take 1 tablet (500 mg total) by mouth 4 (four) times daily for 10 days. [facility] cyclobenzap rine (FLEXERIL) 10 MG tablet 2022-07 00:00: 00 06-16 00:00 :00 No 10mg Q.74904558 [id number] 3D Take 1 tablet (10 mg total) by mouth 3 (three) times daily for 10 days. [facility] methocarbam oL (ROBAXIN) 500 MG tablet 2022-07 00:00: 00 06-16 00:00 :00 No 500mg Q.25D Take 1 tablet (500 mg total) by mouth 4 (four) times daily for 10 days. [facility] cyclobenzap rine (FLEXERIL) 10 MG tablet 2022-07 00:00: 00 06-16 00:00 :00 No 10mg Q.28538825 [id number] 3D Take 1 tablet (10 mg total) by mouth 3 (three) times daily for 10 days. [facility] methocarbam oL (ROBAXIN) 500 MG tablet 2022-07 00:00: 00 06-16 00:00 :00 No 500mg Q.25D Take 1 tablet (500 mg total) by mouth 4 (four) times daily for 10 days. [facility] cyclobenzap rine (FLEXERIL) 10 MG tablet 2022-07 00:00: 00 06-16 00:00 :00 No 10mg Q.81239604 [id number] 3D Take 1 tablet (10 mg total) by mouth 3 (three) times daily for 10 days. [facility] methocarbam oL (ROBAXIN) 500 MG tablet 2022-07 00:00: 00 06-16 00:00 :00 No 500mg Q.25D Take 1 tablet (500 mg total) by mouth 4 (four) times daily for 10 days. [facility] cyclobenzap rine (FLEXERIL) 10 MG tablet 2022-07 00:00: 00 06-16 00:00 :00 No 10mg Q.15096142 [id number] 3D Take 1 tablet (10 mg total) by mouth 3 (three) times daily for 10 days. [facility] methocarbam oL (ROBAXIN) 500 MG tablet 2022-07 00:00: 00 06-16 00:00 :00 No 500mg Q.25D Take 1 tablet (500 mg total) by mouth 4 (four) times daily for 10 days. [facility] cyclobenzap rine (FLEXERIL) 10 MG tablet 2022-07 00:00: 00 06-16 00:00 :00 No 10mg Q.54446505 [id number] 3D Take 1 tablet (10 mg total) by mouth 3 (three) times daily for 10 days. [facility] methocarbam oL (ROBAXIN) 500 MG tablet 2022-07 00:00: 00 06-16 00:00 :00 No 500mg Q.25D Take 1 tablet (500 mg total) by mouth 4 (four) times daily for 10 days. [facility] cyclobenzap rine (FLEXERIL) 10 MG tablet 2022-07 00:00: 00 06-16 00:00 :00 No 10mg Q.35250665 [id number] 3D Take 1 tablet (10 mg total) by mouth 3 (three) times daily for 10 days. [facility] methocarbam oL (ROBAXIN) 500 MG tablet 2022-07 00:00: 00 06-16 00:00 :00 No 500mg Q.25D Take 1 tablet (500 mg total) by mouth 4 (four) times daily for 10 days. [facility] cyclobenzap rine (FLEXERIL) 10 MG tablet 2022-07 00:00: 00 06-16 00:00 :00 No 10mg Q.66996798 [id number] 3D Take 1 tablet (10 mg total) by mouth 3 (three) times daily for 10 days. [facility] methocarbam oL (ROBAXIN) 500 MG tablet 2022-07 00:00: 00 06-16 00:00 :00 No 500mg Q.25D Take 1 tablet (500 mg total) by mouth 4 (four) times daily for 10 days. [facility] cyclobenzap rine (FLEXERIL) 10 MG tablet 2022-07 00:00: 00 06-16 00:00 :00 No 10mg Q.47575201 [id number] 3D Take 1 tablet (10 mg total) by mouth 3 (three) times daily for 10 days. [facility] methocarbam oL (ROBAXIN) 500 MG tablet 2022-07 00:00: 00 06-16 00:00 :00 No 500mg Q.25D Take 1 tablet (500 mg total) by mouth 4 (four) times daily for 10 days. [facility] cyclobenzap rine (FLEXERIL) 10 MG tablet 2022-07 00:00: 00 06-16 00:00 :00 No 10mg Q.29345435 [id number] 3D Take 1 tablet (10 mg total) by mouth 3 (three) times daily for 10 days. [facility] methocarbam oL (ROBAXIN) 500 MG tablet 2022-07 00:00: 00 06-16 00:00 :00 No 500mg Q.25D Take 1 tablet (500 mg total) by mouth 4 (four) times daily for 10 days. [facility] cyclobenzap rine (FLEXERIL) 10 MG tablet 2022-07 00:00: 00 06-16 00:00 :00 No 10mg Q.32791703 [id number] 3D Take 1 tablet (10 mg total) by mouth 3 (three) times daily for 10 days. [facility] methocarbam oL (ROBAXIN) 500 MG tablet 2022-07 00:00: 00 06-16 00:00 :00 No 500mg Q.25D Take 1 tablet (500 mg total) by mouth 4 (four) times daily for 10 days. [facility] cyclobenzap rine (FLEXERIL) 10 MG tablet 2022-07 00:00: 00 06-16 00:00 :00 No 10mg Q.16291316 [id number] 3D Take 1 tablet (10 mg total) by mouth 3 (three) times daily for 10 days. [facility] methocarbam oL (ROBAXIN) 500 MG tablet 2022-07 00:00: 00 06-16 00:00 :00 No 500mg Q.25D Take 1 tablet (500 mg total) by mouth 4 (four) times daily for 10 days. [facility] cyclobenzap rine (FLEXERIL) 10 MG tablet 2022-07 00:00: 00 06-14 23:59 :00 Yes 10mg Q.38922176 [id number] 3D Take 1 tablet (10 mg total) by mouth 3 (three) times daily for 10 days. [facility] methocarbam oL (ROBAXIN) 500 MG tablet 2022-07 00:00: 00 06-14 23:59 :00 Yes 500mg Q.25D Take 1 tablet (500 mg total) by mouth 4 (four) times daily for 10 days. [facility] cyclobenzap rine (FLEXERIL) 10 MG tablet 2022-07 00:00: 00 06-14 23:59 :00 Yes 10mg Q.79102690 [id number] 3D Take 1 tablet (10 mg total) by mouth 3 (three) times daily for 10 days. [facility] methocarbam oL (ROBAXIN) 500 MG tablet 2022-07 00:00: 00 06-14 23:59 :00 Yes 500mg Q.25D Take 1 tablet (500 mg total) by mouth 4 (four) times daily for 10 days. [facility] cyclobenzap rine (FLEXERIL) 10 MG tablet 2022-07 00:00: 00 06-14 23:59 :00 Yes 10mg Q.97656490 [id number] 3D Take 1 tablet (10 mg total) by mouth 3 (three) times daily for 10 days. [facility] methocarbam oL (ROBAXIN) 500 MG tablet 2022-07 00:00: 00 06-14 23:59 :00 Yes 500mg Q.25D Take 1 tablet (500 mg total) by mouth 4 (four) times daily for 10 days. [facility] lactulose (CHRONULAC) 20 gram/30 mL solution 2022-07 00:00: 00 06-11 23:59 :00 No 20g Q.47621220 [id number] 3D Take 30 mLs (20 g total) by mouth 3 (three) times daily for 7 days. [facility] ondansetron (ZOFRAN-ODT ) 4 MG disintegrat ing tablet 2022-07 00:00: 00 06-11 23:59 :00 No 4mg Take 1 tablet (4 mg total) by mouth every 6 (six) hours as needed for up to 7 days. [facility] lactulose (CHRONULAC) 20 gram/30 mL solution 2022-07 00:00: 00 06-11 23:59 :00 No 20g Q.51610427 [id number] 3D Take 30 mLs (20 g total) by mouth 3 (three) times daily for 7 days. [facility] ondansetron (ZOFRAN-ODT ) 4 MG disintegrat ing tablet 2022-07 00:00: 00 06-11 23:59 :00 No 4mg Take 1 tablet (4 mg total) by mouth every 6 (six) hours as needed for up to 7 days. [facility] lactulose (CHRONULAC) 20 gram/30 mL solution 2022-07 00:00: 00 06-11 23:59 :00 No 20g Q.[id number] 3D Take 30 mLs (20 g total) by mouth 3 (three) times daily for 7 days. [facility] ondansetron (ZOFRAN-ODT ) 4 MG disintegrat ing tablet 2022-07 00:00: 00 06-11 23:59 :00 No 4mg Take 1 tablet (4 mg total) by mouth every 6 (six) hours as needed for up to 7 days. [facility] lactulose (CHRONULAC) 20 gram/30 mL solution 2022-07 00:00: 00 06-11 23:59 :00 No 20g Q.37356988 [id number] 3D Take 30 mLs (20 g total) by mouth 3 (three) times daily for 7 days. [facility] ondansetron (ZOFRAN-ODT ) 4 MG disintegrat ing tablet 2022-07 00:00: 00 06-11 23:59 :00 No 4mg Take 1 tablet (4 mg total) by mouth every 6 (six) hours as needed for up to 7 days. [facility] lactulose (CHRONULAC) 20 gram/30 mL solution 2022-07 00:00: 00 06-11 23:59 :00 No 20g Q.36422106 [id number] 3D Take 30 mLs (20 g total) by mouth 3 (three) times daily for 7 days. [facility] ondansetron (ZOFRAN-ODT ) 4 MG disintegrat ing tablet 2022-07 00:00: 00 06-11 23:59 :00 No 4mg Take 1 tablet (4 mg total) by mouth every 6 (six) hours as needed for up to 7 days. [facility] lactulose (CHRONULAC) 20 gram/30 mL solution 2022-07 00:00: 00 06-11 23:59 :00 No 20g Q.[id number] 3D Take 30 mLs (20 g total) by mouth 3 (three) times daily for 7 days. [facility] ondansetron (ZOFRAN-ODT ) 4 MG disintegrat ing tablet 2022-07 00:00: 00 06-11 23:59 :00 No 4mg Take 1 tablet (4 mg total) by mouth every 6 (six) hours as needed for up to 7 days. [facility] lactulose (CHRONULAC) 20 gram/30 mL solution 2022-07 00:00: 00 06-11 23:59 :00 No 20g Q.22043350 [id number] 3D Take 30 mLs (20 g total) by mouth 3 (three) times daily for 7 days. [facility] ondansetron (ZOFRAN-ODT ) 4 MG disintegrat ing tablet 2022-07 00:00: 00 06-11 23:59 :00 No 4mg Take 1 tablet (4 mg total) by mouth every 6 (six) hours as needed for up to 7 days. [facility] lactulose (CHRONULAC) 20 gram/30 mL solution 2022-07 00:00: 00 06-11 23:59 :00 No 20g Q.82636014 [id number] 3D Take 30 mLs (20 g total) by mouth 3 (three) times daily for 7 days. [facility] ondansetron (ZOFRAN-ODT ) 4 MG disintegrat ing tablet 2022-07 00:00: 00 06-11 23:59 :00 No 4mg Take 1 tablet (4 mg total) by mouth every 6 (six) hours as needed for up to 7 days. [facility] lactulose (CHRONULAC) 20 gram/30 mL solution 2022-07 00:00: 00 06-11 23:59 :00 No 20g Q.[id number] [id number] 3D Take 30 mLs (20 g total) by mouth 3 (three) times daily for 7 days. [facility] ondansetron (ZOFRAN-ODT ) 4 MG disintegrat ing tablet 2022-07 00:00: 00 06-11 23:59 :00 No 4mg Take 1 tablet (4 mg total) by mouth every 6 (six) hours as needed for up to 7 days. [facility] lactulose (CHRONULAC) 20 gram/30 mL solution 2022-07 00:00: 00 06-11 23:59 :00 Yes 20g Q.66326534 [id number] 3D Take 30 mLs (20 g total) by mouth 3 (three) times daily for 7 days. [facility] ondansetron (ZOFRAN-ODT ) 4 MG disintegrat ing tablet 2022-07 00:00: 00 06-11 23:59 :00 Yes 4mg Take 1 tablet (4 mg total) by mouth every 6 (six) hours as needed for up to 7 days. [facility] lactulose (CHRONULAC) 20 gram/30 mL solution 2022-07 00:00: 00 06-11 23:59 :00 Yes 20g Q.[id number] 3D Take 30 mLs (20 g total) by mouth 3 (three) times daily for 7 days. [facility] ondansetron (ZOFRAN-ODT ) 4 MG disintegrat ing tablet 2022-07 00:00: 00 06-11 23:59 :00 Yes 4mg Take 1 tablet (4 mg total) by mouth every 6 (six) hours as needed for up to 7 days. [facility] lactulose (CHRONULAC) 20 gram/30 mL solution 2022-07 00:00: 00 06-11 23:59 :00 No 20g Q.[id number] 3D Take 30 mLs (20 g total) by mouth 3 (three) times daily for 7 days. [facility] ondansetron (ZOFRAN-ODT ) 4 MG disintegrat ing tablet 2022-07 00:00: 00 06-11 23:59 :00 No 4mg Take 1 tablet (4 mg total) by mouth every 6 (six) hours as needed for up to 7 days. [facility] lactulose (CHRONULAC) 20 gram/30 mL solution 2022-07 00:00: 00 06-11 23:59 :00 No 20g Q.[id number] 3D Take 30 mLs (20 g total) by mouth 3 (three) times daily for 7 days. [facility] ondansetron (ZOFRAN-ODT ) 4 MG disintegrat ing tablet 2022-07 00:00: 00 06-11 23:59 :00 No 4mg Take 1 tablet (4 mg total) by mouth every 6 (six) hours as needed for up to 7 days. [facility] lactulose (CHRONULAC) 20 gram/30 mL solution 2022-07 00:00: 00 06-11 23:59 :00 No 20g Q.[id number] 3D Take 30 mLs (20 g total) by mouth 3 (three) times daily for 7 days. [facility] ondansetron (ZOFRAN-ODT ) 4 MG disintegrat ing tablet 2022-07 00:00: 00 06-11 23:59 :00 No 4mg Take 1 tablet (4 mg total) by mouth every 6 (six) hours as needed for up to 7 days. [facility] lactulose (CHRONULAC) 20 gram/30 mL solution 2022-07 00:00: 00 06-11 23:59 :00 No 20g Q.26831114 [id number] 3D Take 30 mLs (20 g total) by mouth 3 (three) times daily for 7 days. [facility] ondansetron (ZOFRAN-ODT ) 4 MG disintegrat ing tablet 2022-07 00:00: 00 06-11 23:59 :00 No 4mg Take 1 tablet (4 mg total) by mouth every 6 (six) hours as needed for up to 7 days. [facility] metoprolol succinate (TOPROL-XL) 25 MG 24 hr tablet 2022-07 15:23: 22 Yes 25mg QD Take 1 tablet (25 mg total) by mouth daily. [facility] varenicline (CHANTIX) 1 mg tablet 2022-07 15:23: 22 Yes 1mg Q.5D Take 1 tablet (1 mg total) by mouth 2 (two) times daily Give with meals and with a full glass of water.. [facility] albuterol HFA (VENTOLIN HFA) 90 mcg/actuati on inhaler 2022-07 15:23: 22 Yes 1{puff} Inhale 1 puff by mouth via inhaler every 6 (six) hours as needed for Wheezing. [facility] fluticasone -umeclidin- vilanter (Trelegy Ellipta) 200-62.5-25 mcg DsDv 2022-07 15:23: 22 Yes QD Inhale by mouth via inhaler daily. [facility] atorvastati n (LIPITOR) 20 MG tablet 2022-07 15:23: 22 Yes 20mg QD Take 1 tablet (20 mg total) by mouth daily. [facility] acetaminoph en-codeine (TYLENOL #3) 300-30 mg per tablet 2022-07 15:23: 22 Yes 1{tbl} Take 1 tablet by mouth every 4 (four) hours as needed for Pain. [facility] acetaminoph en-codeine (TYLENOL #3) 300-30 mg per tablet 2022-07 09:42: 02 Yes 1{tbl} Take 1 tablet by mouth every 4 (four) hours as needed for Pain. Max Daily Amount: 6 tablets [facility] acetaminoph en-codeine (TYLENOL #3) 300-30 mg per tablet 2022-07 09:42: 02 Yes 1{tbl} Take 1 tablet by mouth every 4 (four) hours as needed for Pain. Max Daily Amount: 6 tablets [facility] varenicline (CHANTIX) 1 mg tablet 2022-07 09:40: 04 Yes 1mg Q.5D Take 1 tablet (1 mg total) by mouth 2 (two) times daily Give with meals and with a full glass of water.. [facility] albuterol HFA (VENTOLIN HFA) 90 mcg/actuati on inhaler 2022-07 09:40: 04 Yes 1{puff} Inhale 1 puff by mouth via inhaler every 6 (six) hours as needed for Wheezing. [facility] fluticasone -umeclidin- vilanter (Trelegy Ellipta) 200-62.5-25 mcg DsDv 2022-07 09:40: 04 Yes QD Inhale by mouth via inhaler daily. [facility] atorvastati n (LIPITOR) 20 MG tablet 2022-07 09:40: 04 Yes 20mg QD Take 1 tablet (20 mg total) by mouth daily. [facility] varenicline (CHANTIX) 1 mg tablet 2022-07 09:40: 04 Yes 1mg Q.5D Take 1 tablet (1 mg total) by mouth 2 (two) times daily Give with meals and with a full glass of water.. [facility] albuterol HFA (VENTOLIN HFA) 90 mcg/actuati on inhaler 2022-07 09:40: 04 Yes 1{puff} Inhale 1 puff by mouth via inhaler every 6 (six) hours as needed for Wheezing. [facility] fluticasone -umeclidin- vilanter (Trelegy Ellipta) 200-62.5-25 mcg DsDv 2022-07 09:40: 04 Yes QD Inhale by mouth via inhaler daily. [facility] atorvastati n (LIPITOR) 20 MG tablet 2022-07 09:40: 04 Yes 20mg QD Take 1 tablet (20 mg total) by mouth daily. [facility] metoprolol succinate (TOPROL-XL) 25 MG 24 hr tablet 2022-07 09:13: 28 Yes 25mg QD Take 1 tablet (25 mg total) by mouth daily. [facility] metoprolol succinate (TOPROL-XL) 25 MG 24 hr tablet 2022-07 1 09:13: 28 Yes 25mg QD Take 1 tablet (25 mg total) by mouth daily. [facility] furosemide (LASIX) 20 MG tablet 04-03 00:00: 00 04-02 23:59 :00 No 20mg QD Take 1 tablet (20 mg total) by mouth daily. [facility] furosemide (LASIX) 20 MG tablet 04-03 00:00: 00 04-02 23:59 :00 No 20mg QD Take 1 tablet (20 mg total) by mouth daily. [facility] DULoxetine (CYMBALTA) 30 MG capsule 04-03 00:00: 00 04-02 23:59 :00 No 30mg QD Take 1 capsule (30 mg total) by mouth daily. [facility] furosemide (LASIX) 20 MG tablet 04-03 00:00: 00 04-02 23:59 :00 No 20mg QD Take 1 tablet (20 mg total) by mouth daily. [facility] lisinopriL (PRINIVIL,Z ESTRIL) 5 MG tablet 04-03 00:00: 00 04-02 23:59 :00 No 5mg QD Take 1 tablet (5 mg total) by mouth daily. [facility] furosemide (LASIX) 20 MG tablet 04-03 00:00: 00 04-02 23:59 :00 No 20mg QD Take 1 tablet (20 mg total) by mouth daily. [facility] furosemide (LASIX) 20 MG tablet 04-03 00:00: 00 04-02 23:59 :00 No 20mg QD Take 1 tablet (20 mg total) by mouth daily. [facility] furosemide (LASIX) 20 MG tablet 04-03 00:00: 00 04-02 23:59 :00 No 20mg QD Take 1 tablet (20 mg total) by mouth daily. [facility] furosemide (LASIX) 20 MG tablet 2022-0 9-15 00:00: 00 04-02 23:59 :00 No 20mg QD Take 1 tablet (20 mg total) by mouth daily. [facility] furosemide (LASIX) 20 MG tablet 2022-0 9-15 00:00: 00 04-02 23:59 :00 No 20mg QD Take 1 tablet (20 mg total) by mouth daily. [facility] furosemide (LASIX) 20 MG tablet 0 -15 00:00: 00 04-02 23:59 :00 No 20mg QD Take 1 tablet (20 mg total) by mouth daily. [facility] DULoxetine (CYMBALTA) 30 MG capsule 0 -15 00:00: 00 04-02 23:59 :00 No 30mg QD Take 1 capsule (30 mg total) by mouth daily. [facility] furosemide (LASIX) 20 MG tablet 0 -15 00:00: 00 04-02 23:59 :00 No 20mg QD Take 1 tablet (20 mg total) by mouth daily. [facility] lisinopriL (PRINIVIL,Z ESTRIL) 5 MG tablet 0 -15 00:00: 00 04-02 23:59 :00 No 5mg QD Take 1 tablet (5 mg total) by mouth daily. [facility] furosemide (LASIX) 20 MG tablet 0 -15 00:00: 00 04-02 23:59 :00 No 20mg QD Take 1 tablet (20 mg total) by mouth daily. [facility] furosemide (LASIX) 20 MG tablet 2022-0 -15 00:00: 00 04-02 23:59 :00 No 20mg QD Take 1 tablet (20 mg total) by mouth daily. [facility] DULoxetine (CYMBALTA) 30 MG capsule 2022-0 9-15 00:00: 00 04-02 23:59 :00 No 30mg QD Take 1 capsule (30 mg total) by mouth daily. [facility] lisinopriL (PRINIVIL,Z ESTRIL) 5 MG tablet 2022-0 9-15 00:00: 00 04-02 23:59 :00 No 5mg QD Take 1 tablet (5 mg total) by mouth daily. [facility] furosemide (LASIX) 20 MG tablet 2022-0 9-15 00:00: 00 04-02 23:59 :00 No 20mg QD Take 1 tablet (20 mg total) by mouth daily. [facility] DULoxetine (CYMBALTA) 30 MG capsule 2022-0 -15 00:00: 00 04-02 23:59 :00 No 30mg QD Take 1 capsule (30 mg total) by mouth daily. [facility] lisinopriL (PRINIVIL,Z ESTRIL) 5 MG tablet 0 -15 00:00: 00 04-02 23:59 :00 No 5mg QD Take 1 tablet (5 mg total) by mouth daily. [facility] furosemide (LASIX) 20 MG tablet 2022-0 -15 00:00: 00 04-02 23:59 :00 No 20mg QD Take 1 tablet (20 mg total) by mouth daily. [facility] DULoxetine (CYMBALTA) 30 MG capsule 2022-0 -15 00:00: 00 04-02 23:59 :00 No 30mg QD Take 1 capsule (30 mg total) by mouth daily. [facility] lisinopriL (PRINIVIL,Z ESTRIL) 5 MG tablet 2022-0 -15 00:00: 00 04-02 23:59 :00 No 5mg QD Take 1 tablet (5 mg total) by mouth daily. [facility] furosemide (LASIX) 20 MG tablet 2022-0 9-15 00:00: 00 04-02 23:59 :00 No 20mg QD Take 1 tablet (20 mg total) by mouth daily. [facility] DULoxetine (CYMBALTA) 30 MG capsule 2022-0 9-15 00:00: 00 04-02 23:59 :00 No 30mg QD Take 1 capsule (30 mg total) by mouth daily. [facility] lisinopriL (PRINIVIL,Z ESTRIL) 5 MG tablet 2022-0 9-15 00:00: 00 04-02 23:59 :00 No 5mg QD Take 1 tablet (5 mg total) by mouth daily. [facility] furosemide (LASIX) 20 MG tablet 2022-0 9-15 00:00: 00 04-02 23:59 :00 No 20mg QD Take 1 tablet (20 mg total) by mouth daily. [facility] DULoxetine (CYMBALTA) 30 MG capsule 2022-0 9-15 00:00: 00 04-02 23:59 :00 No 30mg QD Take 1 capsule (30 mg total) by mouth daily. [facility] lisinopriL (PRINIVIL,Z ESTRIL) 5 MG tablet 2022-0 9-15 00:00: 00 04-02 23:59 :00 No 5mg QD Take 1 tablet (5 mg total) by mouth daily. [facility] furosemide (LASIX) 20 MG tablet 2022-0 -15 00:00: 00 04-02 23:59 :00 No 20mg QD Take 1 tablet (20 mg total) by mouth daily. [facility] DULoxetine (CYMBALTA) 30 MG capsule 2022-0 -15 00:00: 00 04-02 23:59 :00 No 30mg QD Take 1 capsule (30 mg total) by mouth daily. [facility] lisinopriL (PRINIVIL,Z ESTRIL) 5 MG tablet 2022-0 -15 00:00: 00 04-02 23:59 :00 No 5mg QD Take 1 tablet (5 mg total) by mouth daily. [facility] furosemide (LASIX) 20 MG tablet 2022-0 9-15 00:00: 00 04-02 23:59 :00 No 20mg QD Take 1 tablet (20 mg total) by mouth daily. [facility] DULoxetine (CYMBALTA) 30 MG capsule 2022-0 9-15 00:00: 00 04-02 23:59 :00 No 30mg QD Take 1 capsule (30 mg total) by mouth daily. [facility] lisinopriL (PRINIVIL,Z ESTRIL) 5 MG tablet 0 -15 00:00: 00 04-02 23:59 :00 No 5mg QD Take 1 tablet (5 mg total) by mouth daily. [facility] furosemide (LASIX) 20 MG tablet -15 00:00: 00 04-02 23:59 :00 No 20mg QD Take 1 tablet (20 mg total) by mouth daily. [facility] DULoxetine (CYMBALTA) 30 MG capsule -15 00:00: 00 04-02 23:59 :00 No 30mg QD Take 1 capsule (30 mg total) by mouth daily. [facility] furosemide (LASIX) 20 MG tablet 15 00:00: 00 04-02 23:59 :00 No 20mg QD Take 1 tablet (20 mg total) by mouth daily. [facility] DULoxetine (CYMBALTA) 30 MG capsule 15 00:00: 00 04-02 23:59 :00 No 30mg QD Take 1 capsule (30 mg total) by mouth daily. [facility] furosemide (LASIX) 20 MG tablet -15 00:00: 00 04-02 23:59 :00 No 20mg QD Take 1 tablet (20 mg total) by mouth daily. [facility] DULoxetine (CYMBALTA) 30 MG capsule 0 -15 00:00: 00 04-02 23:59 :00 No 30mg QD Take 1 capsule (30 mg total) by mouth daily. [facility] furosemide (LASIX) 20 MG tablet 0 -15 00:00: 00 04-02 23:59 :00 No 20mg QD Take 1 tablet (20 mg total) by mouth daily. [facility] DULoxetine (CYMBALTA) 30 MG capsule 2022-0 9-15 00:00: 00 04-02 23:59 :00 No 30mg QD Take 1 capsule (30 mg total) by mouth daily. [facility] furosemide (LASIX) 20 MG tablet 04-03 00:00: 00 04-02 23:59 :00 No 20mg QD Take 1 tablet (20 mg total) by mouth daily. [facility] furosemide (LASIX) 20 MG tablet 04-03 00:00: 00 04-02 23:59 :00 No 20mg QD Take 1 tablet (20 mg total) by mouth daily. [facility] furosemide (LASIX) 20 MG tablet 04-03 00:00: 00 04-02 23:59 :00 No 20mg QD Take 1 tablet (20 mg total) by mouth daily. [facility] aspirin 81 MG EC tablet 04-03 00:00: 00 07-02 23:59 :00 No 81mg QD Take 1 tablet (81 mg total) by mouth daily for 90 days. [facility] divalproex (DEPAKOTE) 500 MG EC tablet 04-03 00:00: 00 07-02 23:59 :00 No 500mg Q.5D Take 1 tablet (500 mg total) by mouth 2 (two) times daily for 90 days. [facility] gabapentin (NEURONTIN) 300 MG capsule 04-03 00:00: 00 07-02 23:59 :00 No 300mg Q.[id number] 3D Take 1 capsule (300 mg total) by mouth 3 (three) times daily for 90 days. [facility] aspirin 81 MG EC tablet 04-03 00:00: 00 07-02 23:59 :00 No 81mg QD Take 1 tablet (81 mg total) by mouth daily for 90 days. [facility] divalproex (DEPAKOTE) 500 MG EC tablet 04-03 00:00: 00 07-02 23:59 :00 No 500mg Q.5D Take 1 tablet (500 mg total) by mouth 2 (two) times daily for 90 days. [facility] gabapentin (NEURONTIN) 300 MG capsule 04-03 00:00: 00 07-02 23:59 :00 No 300mg Q.[id number] 3D Take 1 capsule (300 mg total) by mouth 3 (three) times daily for 90 days. [facility] aspirin 81 MG EC tablet 04-03 00:00: 00 07-02 23:59 :00 No 81mg QD Take 1 tablet (81 mg total) by mouth daily for 90 days. [facility] divalproex (DEPAKOTE) 500 MG EC tablet 04-03 00:00: 00 07-02 23:59 :00 No 500mg Q.5D Take 1 tablet (500 mg total) by mouth 2 (two) times daily for 90 days. [facility] gabapentin (NEURONTIN) 300 MG capsule 04-03 00:00: 00 07-02 23:59 :00 No 300mg Q.[id number] 3D Take 1 capsule (300 mg total) by mouth 3 (three) times daily for 90 days. [facility] aspirin 81 MG EC tablet 04-03 00:00: 00 07-02 23:59 :00 No 81mg QD Take 1 tablet (81 mg total) by mouth daily for 90 days. [facility] divalproex (DEPAKOTE) 500 MG EC tablet 04-03 00:00: 00 07-02 23:59 :00 No 500mg Q.5D Take 1 tablet (500 mg total) by mouth 2 (two) times daily for 90 days. [facility] gabapentin (NEURONTIN) 300 MG capsule 04-03 00:00: 00 07-02 23:59 :00 No 300mg Q.[id number] 3D Take 1 capsule (300 mg total) by mouth 3 (three) times daily for 90 days. [facility] aspirin 81 MG EC tablet 04-03 00:00: 00 07-02 23:59 :00 No 81mg QD Take 1 tablet (81 mg total) by mouth daily for 90 days. [facility] divalproex (DEPAKOTE) 500 MG EC tablet 15 00:00: 00 07-02 23:59 :00 No 500mg Q.5D Take 1 tablet (500 mg total) by mouth 2 (two) times daily for 90 days. [facility] gabapentin (NEURONTIN) 300 MG capsule 15 00:00: 00 07-02 23:59 :00 No 300mg Q.[id number] 3D Take 1 capsule (300 mg total) by mouth 3 (three) times daily for 90 days. [facility] aspirin 81 MG EC tablet 04-03 00:00: 00 07-02 23:59 :00 No 81mg QD Take 1 tablet (81 mg total) by mouth daily for 90 days. [facility] divalproex (DEPAKOTE) 500 MG EC tablet 04-03 00:00: 00 07-02 23:59 :00 No 500mg Q.5D Take 1 tablet (500 mg total) by mouth 2 (two) times daily for 90 days. [facility] gabapentin (NEURONTIN) 300 MG capsule 04-03 00:00: 00 07-02 23:59 :00 No 300mg Q.[id number] 3D Take 1 capsule (300 mg total) by mouth 3 (three) times daily for 90 days. [facility] aspirin 81 MG EC tablet 15 00:00: 00 07-02 23:59 :00 No 81mg QD Take 1 tablet (81 mg total) by mouth daily for 90 days. [facility] divalproex (DEPAKOTE) 500 MG EC tablet 15 00:00: 00 07-02 23:59 :00 No 500mg Q.5D Take 1 tablet (500 mg total) by mouth 2 (two) times daily for 90 days. [facility] gabapentin (NEURONTIN) 300 MG capsule -15 00:00: 00 07-02 23:59 :00 No 300mg Q.[id number] 3D Take 1 capsule (300 mg total) by mouth 3 (three) times daily for 90 days. [facility] aspirin 81 MG EC tablet 04-03 00:00: 00 07-02 23:59 :00 No 81mg QD Take 1 tablet (81 mg total) by mouth daily for 90 days. [facility] divalproex (DEPAKOTE) 500 MG EC tablet 04-03 00:00: 00 07-02 23:59 :00 No 500mg Q.5D Take 1 tablet (500 mg total) by mouth 2 (two) times daily for 90 days. [facility] gabapentin (NEURONTIN) 300 MG capsule 04-03 00:00: 00 07-02 23:59 :00 No 300mg Q.[id number] 3D Take 1 capsule (300 mg total) by mouth 3 (three) times daily for 90 days. [facility] aspirin 81 MG EC tablet 04-03 00:00: 00 07-02 23:59 :00 No 81mg QD Take 1 tablet (81 mg total) by mouth daily for 90 days. [facility] divalproex (DEPAKOTE) 500 MG EC tablet 04-03 00:00: 00 07-02 23:59 :00 No 500mg Q.5D Take 1 tablet (500 mg total) by mouth 2 (two) times daily for 90 days. [facility] gabapentin (NEURONTIN) 300 MG capsule 04-03 00:00: 00 07-02 23:59 :00 No 300mg Q.[id number] 3D Take 1 capsule (300 mg total) by mouth 3 (three) times daily for 90 days. [facility] aspirin 81 MG EC tablet 04-03 00:00: 00 07-02 23:59 :00 No 81mg QD Take 1 tablet (81 mg total) by mouth daily for 90 days. [facility] divalproex (DEPAKOTE) 500 MG EC tablet 04-03 00:00: 00 07-02 23:59 :00 No 500mg Q.5D Take 1 tablet (500 mg total) by mouth 2 (two) times daily for 90 days. [facility] gabapentin (NEURONTIN) 300 MG capsule 04-03 00:00: 00 07-02 23:59 :00 No 300mg Q.[id number] 3D Take 1 capsule (300 mg total) by mouth 3 (three) times daily for 90 days. [facility] aspirin 81 MG EC tablet 04-03 00:00: 00 07-02 23:59 :00 No 81mg QD Take 1 tablet (81 mg total) by mouth daily for 90 days. [facility] divalproex (DEPAKOTE) 500 MG EC tablet 04-03 00:00: 00 07-02 23:59 :00 No 500mg Q.5D Take 1 tablet (500 mg total) by mouth 2 (two) times daily for 90 days. [facility] gabapentin (NEURONTIN) 300 MG capsule 04-03 00:00: 00 07-02 23:59 :00 No 300mg Q.[id number] 3D Take 1 capsule (300 mg total) by mouth 3 (three) times daily for 90 days. [facility] aspirin 81 MG EC tablet 04-03 00:00: 00 07-02 23:59 :00 No 81mg QD Take 1 tablet (81 mg total) by mouth daily for 90 days. [facility] divalproex (DEPAKOTE) 500 MG EC tablet 04-03 00:00: 00 07-02 23:59 :00 No 500mg Q.5D Take 1 tablet (500 mg total) by mouth 2 (two) times daily for 90 days. [facility] gabapentin (NEURONTIN) 300 MG capsule 04-03 00:00: 00 07-02 23:59 :00 No 300mg Q.[id number] 3D Take 1 capsule (300 mg total) by mouth 3 (three) times daily for 90 days. [facility] aspirin 81 MG EC tablet 04-03 00:00: 00 07-02 23:59 :00 No 81mg QD Take 1 tablet (81 mg total) by mouth daily for 90 days. [facility] divalproex (DEPAKOTE) 500 MG EC tablet 04-03 00:00: 00 07-02 23:59 :00 No 500mg Q.5D Take 1 tablet (500 mg total) by mouth 2 (two) times daily for 90 days. [facility] gabapentin (NEURONTIN) 300 MG capsule 04-03 00:00: 00 07-02 23:59 :00 No 300mg Q.[id number] 3D Take 1 capsule (300 mg total) by mouth 3 (three) times daily for 90 days. [facility] aspirin 81 MG EC tablet 04-03 00:00: 00 07-02 23:59 :00 No 81mg QD Take 1 tablet (81 mg total) by mouth daily for 90 days. [facility] divalproex (DEPAKOTE) 500 MG EC tablet 04-03 00:00: 00 07-02 23:59 :00 No 500mg Q.5D Take 1 tablet (500 mg total) by mouth 2 (two) times daily for 90 days. [facility] gabapentin (NEURONTIN) 300 MG capsule 04-03 00:00: 00 07-02 23:59 :00 No 300mg Q.[id number] 3D Take 1 capsule (300 mg total) by mouth 3 (three) times daily for 90 days. [facility] aspirin 81 MG EC tablet 04-03 00:00: 00 07-02 23:59 :00 No 81mg QD Take 1 tablet (81 mg total) by mouth daily for 90 days. [facility] divalproex (DEPAKOTE) 500 MG EC tablet 04-03 00:00: 00 07-02 23:59 :00 No 500mg Q.5D Take 1 tablet (500 mg total) by mouth 2 (two) times daily for 90 days. [facility] gabapentin (NEURONTIN) 300 MG capsule 15 00:00: 00 07-02 23:59 :00 No 300mg Q.[id number] 3D Take 1 capsule (300 mg total) by mouth 3 (three) times daily for 90 days. [facility] aspirin 81 MG EC tablet 04-03 00:00: 00 07-02 23:59 :00 No 81mg QD Take 1 tablet (81 mg total) by mouth daily for 90 days. [facility] divalproex (DEPAKOTE) 500 MG EC tablet 04-03 00:00: 00 07-02 23:59 :00 No 500mg Q.5D Take 1 tablet (500 mg total) by mouth 2 (two) times daily for 90 days. [facility] gabapentin (NEURONTIN) 300 MG capsule 04-03 00:00: 00 07-02 23:59 :00 No 300mg Q.[id number] 3D Take 1 capsule (300 mg total) by mouth 3 (three) times daily for 90 days. [facility] aspirin 81 MG EC tablet 04-03 00:00: 00 07-02 23:59 :00 No 81mg QD Take 1 tablet (81 mg total) by mouth daily for 90 days. [facility] divalproex (DEPAKOTE) 500 MG EC tablet 04-03 00:00: 00 07-02 23:59 :00 No 500mg Q.5D Take 1 tablet (500 mg total) by mouth 2 (two) times daily for 90 days. [facility] gabapentin (NEURONTIN) 300 MG capsule 04-03 00:00: 00 07-02 23:59 :00 No 300mg Q.[id number] 3D Take 1 capsule (300 mg total) by mouth 3 (three) times daily for 90 days. [facility] aspirin 81 MG EC tablet 04-03 00:00: 00 07-02 23:59 :00 No 81mg QD Take 1 tablet (81 mg total) by mouth daily for 90 days. [facility] divalproex (DEPAKOTE) 500 MG EC tablet 15 00:00: 00 07-02 23:59 :00 No 500mg Q.5D Take 1 tablet (500 mg total) by mouth 2 (two) times daily for 90 days. [facility] gabapentin (NEURONTIN) 300 MG capsule 15 00:00: 00 07-02 23:59 :00 No 300mg Q.[id number] 3D Take 1 capsule (300 mg total) by mouth 3 (three) times daily for 90 days. [facility] aspirin 81 MG EC tablet 04-03 00:00: 00 07-02 23:59 :00 No 81mg QD Take 1 tablet (81 mg total) by mouth daily for 90 days. [facility] divalproex (DEPAKOTE) 500 MG EC tablet 04-03 00:00: 00 07-02 23:59 :00 No 500mg Q.5D Take 1 tablet (500 mg total) by mouth 2 (two) times daily for 90 days. [facility] gabapentin (NEURONTIN) 300 MG capsule 04-03 00:00: 00 07-02 23:59 :00 No 300mg Q.[id number] 3D Take 1 capsule (300 mg total) by mouth 3 (three) times daily for 90 days. [facility] aspirin 81 MG EC tablet 15 00:00: 00 07-02 23:59 :00 No 81mg QD Take 1 tablet (81 mg total) by mouth daily for 90 days. [facility] divalproex (DEPAKOTE) 500 MG EC tablet 15 00:00: 00 07-02 23:59 :00 No 500mg Q.5D Take 1 tablet (500 mg total) by mouth 2 (two) times daily for 90 days. [facility] gabapentin (NEURONTIN) 300 MG capsule 15 00:00: 00 07-02 23:59 :00 No 300mg Q.[id number] 3D Take 1 capsule (300 mg total) by mouth 3 (three) times daily for 90 days. [facility] aspirin 81 MG EC tablet 04-03 00:00: 00 07-02 23:59 :00 No 81mg QD Take 1 tablet (81 mg total) by mouth daily for 90 days. [facility] divalproex (DEPAKOTE) 500 MG EC tablet 04-03 00:00: 00 07-02 23:59 :00 No 500mg Q.5D Take 1 tablet (500 mg total) by mouth 2 (two) times daily for 90 days. [facility] gabapentin (NEURONTIN) 300 MG capsule 04-03 00:00: 00 07-02 23:59 :00 No 300mg Q.[id number] 3D Take 1 capsule (300 mg total) by mouth 3 (three) times daily for 90 days. [facility] aspirin 81 MG EC tablet 04-03 00:00: 00 07-02 23:59 :00 No 81mg QD Take 1 tablet (81 mg total) by mouth daily for 90 days. [facility] divalproex (DEPAKOTE) 500 MG EC tablet 04-03 00:00: 00 07-02 23:59 :00 No 500mg Q.5D Take 1 tablet (500 mg total) by mouth 2 (two) times daily for 90 days. [facility] gabapentin (NEURONTIN) 300 MG capsule 04-03 00:00: 00 07-02 23:59 :00 No 300mg Q.[id number] 3D Take 1 capsule (300 mg total) by mouth 3 (three) times daily for 90 days. [facility] aspirin 81 MG EC tablet 04-03 00:00: 00 07-02 23:59 :00 No 81mg QD Take 1 tablet (81 mg total) by mouth daily for 90 days. [facility] divalproex (DEPAKOTE) 500 MG EC tablet 04-03 00:00: 00 07-02 23:59 :00 No 500mg Q.5D Take 1 tablet (500 mg total) by mouth 2 (two) times daily for 90 days. [facility] gabapentin (NEURONTIN) 300 MG capsule 04-03 00:00: 00 07-02 23:59 :00 No 300mg Q.[id number] 3D Take 1 capsule (300 mg total) by mouth 3 (three) times daily for 90 days. [facility] aspirin 81 MG EC tablet 04-03 00:00: 00 07-02 23:59 :00 No 81mg QD Take 1 tablet (81 mg total) by mouth daily for 90 days. [facility] divalproex (DEPAKOTE) 500 MG EC tablet 04-03 00:00: 00 07-02 23:59 :00 No 500mg Q.5D Take 1 tablet (500 mg total) by mouth 2 (two) times daily for 90 days. [facility] gabapentin (NEURONTIN) 300 MG capsule 04-03 00:00: 00 07-02 23:59 :00 No 300mg Q.[id number] 3D Take 1 capsule (300 mg total) by mouth 3 (three) times daily for 90 days. [facility] aspirin 81 MG EC tablet 04-03 00:00: 00 07-02 23:59 :00 No 81mg QD Take 1 tablet (81 mg total) by mouth daily for 90 days. [facility] divalproex (DEPAKOTE) 500 MG EC tablet 04-03 00:00: 00 07-02 23:59 :00 No 500mg Q.5D Take 1 tablet (500 mg total) by mouth 2 (two) times daily for 90 days. [facility] gabapentin (NEURONTIN) 300 MG capsule 04-03 00:00: 00 07-02 23:59 :00 No 300mg Q.[id number] 3D Take 1 capsule (300 mg total) by mouth 3 (three) times daily for 90 days. [facility] DULoxetine (CYMBALTA) 30 MG capsule 2022-0 9-15 00:00: 00 06-16 00:00 :00 No 30mg QD Take 1 capsule (30 mg total) by mouth daily. [facility] DULoxetine (CYMBALTA) 30 MG capsule 2022-0 9-15 00:00: 00 06-16 00:00 :00 No 30mg QD Take 1 capsule (30 mg total) by mouth daily. [facility] DULoxetine (CYMBALTA) 30 MG capsule 2022-0 9-15 00:00: 00 06-16 00:00 :00 No 30mg QD Take 1 capsule (30 mg total) by mouth daily. [facility] DULoxetine (CYMBALTA) 30 MG capsule 2022-0 9-15 00:00: 00 06-16 00:00 :00 No 30mg QD Take 1 capsule (30 mg total) by mouth daily. [facility] DULoxetine (CYMBALTA) 30 MG capsule 2022-0 9-15 00:00: 00 06-16 00:00 :00 No 30mg QD Take 1 capsule (30 mg total) by mouth daily. [facility] DULoxetine (CYMBALTA) 30 MG capsule 2022-0 9-15 00:00: 00 06-16 00:00 :00 No 30mg QD Take 1 capsule (30 mg total) by mouth daily. [facility] DULoxetine (CYMBALTA) 30 MG capsule 2022-0 9-15 00:00: 00 06-16 00:00 :00 No 30mg QD Take 1 capsule (30 mg total) by mouth daily. [facility] DULoxetine (CYMBALTA) 30 MG capsule 2022-0 9-15 00:00: 00 06-16 00:00 :00 No 30mg QD Take 1 capsule (30 mg total) by mouth daily. [facility] DULoxetine (CYMBALTA) 30 MG capsule 2022-0 9-15 00:00: 00 06-16 00:00 :00 No 30mg QD Take 1 capsule (30 mg total) by mouth daily. [facility] DULoxetine (CYMBALTA) 30 MG capsule 2022-0 9-15 00:00: 00 06-16 00:00 :00 No 30mg QD Take 1 capsule (30 mg total) by mouth daily. [facility] DULoxetine (CYMBALTA) 30 MG capsule -15 00:00: 00 06-16 00:00 :00 No 30mg QD Take 1 capsule (30 mg total) by mouth daily. [facility] DULoxetine (CYMBALTA) 30 MG capsule - 00:00: 00 06-16 00:00 :00 No 30mg QD Take 1 capsule (30 mg total) by mouth daily. [facility] lisinopriL (PRINIVIL,Z ESTRIL) 5 MG tablet 04-03 00:00: 00 05-28 00:00 :00 No 5mg QD Take 1 tablet (5 mg total) by mouth daily. [facility] lisinopriL (PRINIVIL,Z ESTRIL) 5 MG tablet 04-03 00:00: 00 05-28 00:00 :00 No 5mg QD Take 1 tablet (5 mg total) by mouth daily. [facility] lisinopriL (PRINIVIL,Z ESTRIL) 5 MG tablet 04-03 00:00: 00 05-28 00:00 :00 No 5mg QD Take 1 tablet (5 mg total) by mouth daily. [facility] lisinopriL (PRINIVIL,Z ESTRIL) 5 MG tablet 04-03 00:00: 00 05-28 00:00 :00 No 5mg QD Take 1 tablet (5 mg total) by mouth daily. [facility] lisinopriL (PRINIVIL,Z ESTRIL) 5 MG tablet 15 00:00: 00 05-28 00:00 :00 No 5mg QD Take 1 tablet (5 mg total) by mouth daily. [facility] lisinopriL (PRINIVIL,Z ESTRIL) 5 MG tablet - 00:00: 05-28 00:00 :00 No 5mg QD Take 1 tablet (5 mg total) by mouth daily. [facility] lisinopriL (PRINIVIL,Z ESTRIL) 5 MG tablet - 00:00: 00 05-28 00:00 :00 No 5mg QD Take 1 tablet (5 mg total) by mouth daily. [facility] lisinopriL (PRINIVIL,Z ESTRIL) 5 MG tablet 04-03 00:00: 00 05-28 00:00 :00 No 5mg QD Take 1 tablet (5 mg total) by mouth daily. [facility] lisinopriL (PRINIVIL,Z ESTRIL) 5 MG tablet 04-03 00:00: 00 05-28 00:00 :00 No 5mg QD Take 1 tablet (5 mg total) by mouth daily. [facility] lisinopriL (PRINIVIL,Z ESTRIL) 5 MG tablet 04-03 00:00: 00 05-28 00:00 :00 No 5mg QD Take 1 tablet (5 mg total) by mouth daily. [facility] lisinopriL (PRINIVIL,Z ESTRIL) 5 MG tablet 04-03 00:00: 00 05-28 00:00 :00 No 5mg QD Take 1 tablet (5 mg total) by mouth daily. [facility] lisinopriL (PRINIVIL,Z ESTRIL) 5 MG tablet 04-03 00:00: 00 05-28 00:00 :00 No 5mg QD Take 1 tablet (5 mg total) by mouth daily. [facility] lisinopriL (PRINIVIL,Z ESTRIL) 5 MG tablet 2022-0 -15 00:00: 00 05-28 00:00 :00 No 5mg QD Take 1 tablet (5 mg total) by mouth daily. [facility] lisinopriL (PRINIVIL,Z ESTRIL) 5 MG tablet 2022--15 00:00: 00 05-28 00:00 :00 No 5mg QD Take 1 tablet (5 mg total) by mouth daily. [facility] lisinopriL (PRINIVIL,Z ESTRIL) 5 MG tablet 04-03 00:00: 00 05-28 00:00 :00 No 5mg QD Take 1 tablet (5 mg total) by mouth daily. [facility] lisinopriL (PRINIVIL,Z ESTRIL) 5 MG tablet 04-03 00:00: 00 05-28 00:00 :00 No 5mg QD Take 1 tablet (5 mg total) by mouth daily. [facility] clonazePAM (KlonoPIN) 0.5 MG tablet 04-03 00:00: 00 05-03 23:59 :00 No .25mg Take 0.5 tablets (0.25 mg total) by mouth 2 (two) times daily as needed for Anxiety for up to 30 days. Max Daily Amount: 0.5 mg [facility] clonazePAM (KlonoPIN) 0.5 MG tablet 04-03 00:00: 00 05-03 23:59 :00 No .25mg Take 0.5 tablets (0.25 mg total) by mouth 2 (two) times daily as needed for Anxiety for up to 30 days. Max Daily Amount: 0.5 mg [facility] clonazePAM (KlonoPIN) 0.5 MG tablet 04-03 00:00: 00 05-03 23:59 :00 No .25mg Take 0.5 tablets (0.25 mg total) by mouth 2 (two) times daily as needed for Anxiety for up to 30 days. Max Daily Amount: 0.5 mg [facility] clonazePAM (KlonoPIN) 0.5 MG tablet 04-03 00:00: 00 05-03 23:59 :00 No .25mg Take 0.5 tablets (0.25 mg total) by mouth 2 (two) times daily as needed for Anxiety for up to 30 days. Max Daily Amount: 0.5 mg [facility] clonazePAM (KlonoPIN) 0.5 MG tablet 04-03 00:00: 00 05-03 23:59 :00 No .25mg Take 0.5 tablets (0.25 mg total) by mouth 2 (two) times daily as needed for Anxiety for up to 30 days. Max Daily Amount: 0.5 mg [facility] clonazePAM (KlonoPIN) 0.5 MG tablet 04-03 00:00: 00 05-03 23:59 :00 No .25mg Take 0.5 tablets (0.25 mg total) by mouth 2 (two) times daily as needed for Anxiety for up to 30 days. Max Daily Amount: 0.5 mg [facility] clonazePAM (KlonoPIN) 0.5 MG tablet 04-03 00:00: 00 05-03 23:59 :00 No .25mg Take 0.5 tablets (0.25 mg total) by mouth 2 (two) times daily as needed for Anxiety for up to 30 days. Max Daily Amount: 0.5 mg [facility] clonazePAM (KlonoPIN) 0.5 MG tablet 04-03 00:00: 00 05-03 23:59 :00 No .25mg Take 0.5 tablets (0.25 mg total) by mouth 2 (two) times daily as needed for Anxiety for up to 30 days. Max Daily Amount: 0.5 mg [facility] clonazePAM (KlonoPIN) 0.5 MG tablet 04-03 00:00: 00 05-03 23:59 :00 No .25mg Take 0.5 tablets (0.25 mg total) by mouth 2 (two) times daily as needed for Anxiety for up to 30 days. Max Daily Amount: 0.5 mg [facility] clonazePAM (KlonoPIN) 0.5 MG tablet 0 15 00:00: 00 05-03 23:59 :00 No .25mg Take 0.5 tablets (0.25 mg total) by mouth 2 (two) times daily as needed for Anxiety for up to 30 days. Max Daily Amount: 0.5 mg [facility] clonazePAM (KlonoPIN) 0.5 MG tablet 0 04-03 00:00: 00 05-03 23:59 :00 No .25mg Take 0.5 tablets (0.25 mg total) by mouth 2 (two) times daily as needed for Anxiety for up to 30 days. Max Daily Amount: 0.5 mg [facility] clonazePAM (KlonoPIN) 0.5 MG tablet 04-03 00:00: 00 05-03 23:59 :00 No .25mg Take 0.5 tablets (0.25 mg total) by mouth 2 (two) times daily as needed for Anxiety for up to 30 days. Max Daily Amount: 0.5 mg [facility] clonazePAM (KlonoPIN) 0.5 MG tablet 04-03 00:00: 00 05-03 23:59 :00 No .25mg Take 0.5 tablets (0.25 mg total) by mouth 2 (two) times daily as needed for Anxiety for up to 30 days. Max Daily Amount: 0.5 mg [facility] clonazePAM (KlonoPIN) 0.5 MG tablet 04-03 00:00: 00 05-03 23:59 :00 No .25mg Take 0.5 tablets (0.25 mg total) by mouth 2 (two) times daily as needed for Anxiety for up to 30 days. Max Daily Amount: 0.5 mg [facility] clonazePAM (KlonoPIN) 0.5 MG tablet 04-03 00:00: 00 05-03 23:59 :00 No .25mg Take 0.5 tablets (0.25 mg total) by mouth 2 (two) times daily as needed for Anxiety for up to 30 days. Max Daily Amount: 0.5 mg [facility] clonazePAM (KlonoPIN) 0.5 MG tablet 0 04-03 00:00: 00 05-03 23:59 :00 No .25mg Take 0.5 tablets (0.25 mg total) by mouth 2 (two) times daily as needed for Anxiety for up to 30 days. Max Daily Amount: 0.5 mg [facility] clonazePAM (KlonoPIN) 0.5 MG tablet 0 04-03 00:00: 00 05-03 23:59 :00 No .25mg Take 0.5 tablets (0.25 mg total) by mouth 2 (two) times daily as needed for Anxiety for up to 30 days. Max Daily Amount: 0.5 mg [facility] clonazePAM (KlonoPIN) 0.5 MG tablet 04-03 00:00: 00 05-03 23:59 :00 No .25mg Take 0.5 tablets (0.25 mg total) by mouth 2 (two) times daily as needed for Anxiety for up to 30 days. Max Daily Amount: 0.5 mg [facility] clonazePAM (KlonoPIN) 0.5 MG tablet 04-03 00:00: 00 05-03 23:59 :00 No .25mg Take 0.5 tablets (0.25 mg total) by mouth 2 (two) times daily as needed for Anxiety for up to 30 days. Max Daily Amount: 0.5 mg [facility] clonazePAM (KlonoPIN) 0.5 MG tablet 04-03 00:00: 00 05-03 23:59 :00 No .25mg Take 0.5 tablets (0.25 mg total) by mouth 2 (two) times daily as needed for Anxiety for up to 30 days. Max Daily Amount: 0.5 mg [facility] clonazePAM (KlonoPIN) 0.5 MG tablet 04-03 00:00: 00 05-03 23:59 :00 No .25mg Take 0.5 tablets (0.25 mg total) by mouth 2 (two) times daily as needed for Anxiety for up to 30 days. Max Daily Amount: 0.5 mg [facility] clonazePAM (KlonoPIN) 0.5 MG tablet 0 04-03 00:00: 00 05-03 23:59 :00 No .25mg Take 0.5 tablets (0.25 mg total) by mouth 2 (two) times daily as needed for Anxiety for up to 30 days. Max Daily Amount: 0.5 mg [facility] clonazePAM (KlonoPIN) 0.5 MG tablet 0 04-03 00:00: 00 05-03 23:59 :00 No .25mg Take 0.5 tablets (0.25 mg total) by mouth 2 (two) times daily as needed for Anxiety for up to 30 days. Max Daily Amount: 0.5 mg [facility] clonazePAM (KlonoPIN) 0.5 MG tablet 04-03 00:00: 00 05-03 23:59 :00 No .25mg Take 0.5 tablets (0.25 mg total) by mouth 2 (two) times daily as needed for Anxiety for up to 30 days. Max Daily Amount: 0.5 mg [facility] clonazePAM (KlonoPIN) 0.5 MG tablet 04-03 00:00: 00 05-03 23:59 :00 No .25mg Take 0.5 tablets (0.25 mg total) by mouth 2 (two) times daily as needed for Anxiety for up to 30 days. Max Daily Amount: 0.5 mg [facility] HYDROcodone -acetaminop hen (NORCO 10-325) 10-325 mg per tablet 04-03 00:00: 00 04-13 23:59 :00 No 1{tbl} Take 1 tablet by mouth every 6 (six) hours as needed for up to 10 days. Max Daily Amount: 4 tablets [facility] methocarbam oL (ROBAXIN) 500 MG tablet 04-03 00:00: 00 04-13 23:59 :00 No 500mg Q.25D Take 1 tablet (500 mg total) by mouth 4 (four) times daily for 10 days. [facility] HYDROcodone -acetaminop hen (NORCO 10-325) 10-325 mg per tablet 04-03 00:00: 00 04-13 23:59 :00 No 1{tbl} Take 1 tablet by mouth every 6 (six) hours as needed for up to 10 days. Max Daily Amount: 4 tablets [facility] methocarbam oL (ROBAXIN) 500 MG tablet 04-03 00:00: 00 04-13 23:59 :00 No 500mg Q.25D Take 1 tablet (500 mg total) by mouth 4 (four) times daily for 10 days. [facility] HYDROcodone -acetaminop hen (NORCO 10-325) 10-325 mg per tablet 04-03 00:00: 00 04-13 23:59 :00 No 1{tbl} Take 1 tablet by mouth every 6 (six) hours as needed for up to 10 days. Max Daily Amount: 4 tablets [facility] methocarbam oL (ROBAXIN) 500 MG tablet 04-03 00:00: 00 04-13 23:59 :00 No 500mg Q.25D Take 1 tablet (500 mg total) by mouth 4 (four) times daily for 10 days. [facility] HYDROcodone -acetaminop hen (NORCO 10-325) 10-325 mg per tablet 04-03 00:00: 00 04-13 23:59 :00 No 1{tbl} Take 1 tablet by mouth every 6 (six) hours as needed for up to 10 days. Max Daily Amount: 4 tablets [facility] methocarbam oL (ROBAXIN) 500 MG tablet 04-03 00:00: 00 04-13 23:59 :00 No 500mg Q.25D Take 1 tablet (500 mg total) by mouth 4 (four) times daily for 10 days. [facility] HYDROcodone -acetaminop hen (NORCO 10-325) 10-325 mg per tablet 04-03 00:00: 00 04-13 23:59 :00 No 1{tbl} Take 1 tablet by mouth every 6 (six) hours as needed for up to 10 days. Max Daily Amount: 4 tablets [facility] methocarbam oL (ROBAXIN) 500 MG tablet 04-03 00:00: 00 04-13 23:59 :00 No 500mg Q.25D Take 1 tablet (500 mg total) by mouth 4 (four) times daily for 10 days. [facility] HYDROcodone -acetaminop hen (NORCO 10-325) 10-325 mg per tablet 04-03 00:00: 00 04-13 23:59 :00 No 1{tbl} Take 1 tablet by mouth every 6 (six) hours as needed for up to 10 days. Max Daily Amount: 4 tablets [facility] methocarbam oL (ROBAXIN) 500 MG tablet 04-03 00:00: 00 04-13 23:59 :00 No 500mg Q.25D Take 1 tablet (500 mg total) by mouth 4 (four) times daily for 10 days. [facility] HYDROcodone -acetaminop hen (NORCO 10-325) 10-325 mg per tablet 04-03 00:00: 00 04-13 23:59 :00 No 1{tbl} Take 1 tablet by mouth every 6 (six) hours as needed for up to 10 days. Max Daily Amount: 4 tablets [facility] methocarbam oL (ROBAXIN) 500 MG tablet 04-03 00:00: 00 04-13 23:59 :00 No 500mg Q.25D Take 1 tablet (500 mg total) by mouth 4 (four) times daily for 10 days. [facility] HYDROcodone -acetaminop hen (NORCO 10-325) 10-325 mg per tablet 04-03 00:00: 00 04-13 23:59 :00 No 1{tbl} Take 1 tablet by mouth every 6 (six) hours as needed for up to 10 days. Max Daily Amount: 4 tablets [facility] methocarbam oL (ROBAXIN) 500 MG tablet 04-03 00:00: 00 04-13 23:59 :00 No 500mg Q.25D Take 1 tablet (500 mg total) by mouth 4 (four) times daily for 10 days. [facility] HYDROcodone -acetaminop hen (NORCO 10-325) 10-325 mg per tablet 04-03 00:00: 00 04-13 23:59 :00 No 1{tbl} Take 1 tablet by mouth every 6 (six) hours as needed for up to 10 days. Max Daily Amount: 4 tablets [facility] methocarbam oL (ROBAXIN) 500 MG tablet 04-03 00:00: 00 04-13 23:59 :00 No 500mg Q.25D Take 1 tablet (500 mg total) by mouth 4 (four) times daily for 10 days. [facility] HYDROcodone -acetaminop hen (NORCO 10-325) 10-325 mg per tablet 04-03 00:00: 00 04-13 23:59 :00 No 1{tbl} Take 1 tablet by mouth every 6 (six) hours as needed for up to 10 days. Max Daily Amount: 4 tablets [facility] methocarbam oL (ROBAXIN) 500 MG tablet 04-03 00:00: 00 04-13 23:59 :00 No 500mg Q.25D Take 1 tablet (500 mg total) by mouth 4 (four) times daily for 10 days. [facility] HYDROcodone -acetaminop hen (NORCO 10-325) 10-325 mg per tablet 04-03 00:00: 00 04-13 23:59 :00 No 1{tbl} Take 1 tablet by mouth every 6 (six) hours as needed for up to 10 days. Max Daily Amount: 4 tablets [facility] methocarbam oL (ROBAXIN) 500 MG tablet 04-03 00:00: 00 04-13 23:59 :00 No 500mg Q.25D Take 1 tablet (500 mg total) by mouth 4 (four) times daily for 10 days. [facility] HYDROcodone -acetaminop hen (NORCO 10-325) 10-325 mg per tablet 04-03 00:00: 00 04-13 23:59 :00 No 1{tbl} Take 1 tablet by mouth every 6 (six) hours as needed for up to 10 days. Max Daily Amount: 4 tablets [facility] methocarbam oL (ROBAXIN) 500 MG tablet 04-03 00:00: 00 04-13 23:59 :00 No 500mg Q.25D Take 1 tablet (500 mg total) by mouth 4 (four) times daily for 10 days. [facility] HYDROcodone -acetaminop hen (NORCO 10-325) 10-325 mg per tablet 04-03 00:00: 00 04-13 23:59 :00 No 1{tbl} Take 1 tablet by mouth every 6 (six) hours as needed for up to 10 days. Max Daily Amount: 4 tablets [facility] methocarbam oL (ROBAXIN) 500 MG tablet 04-03 00:00: 00 04-13 23:59 :00 No 500mg Q.25D Take 1 tablet (500 mg total) by mouth 4 (four) times daily for 10 days. [facility] HYDROcodone -acetaminop hen (NORCO 10-325) 10-325 mg per tablet 04-03 00:00: 00 04-13 23:59 :00 No 1{tbl} Take 1 tablet by mouth every 6 (six) hours as needed for up to 10 days. Max Daily Amount: 4 tablets [facility] methocarbam oL (ROBAXIN) 500 MG tablet 04-03 00:00: 00 04-13 23:59 :00 No 500mg Q.25D Take 1 tablet (500 mg total) by mouth 4 (four) times daily for 10 days. [facility] HYDROcodone -acetaminop hen (NORCO 10-325) 10-325 mg per tablet 04-03 00:00: 00 04-13 23:59 :00 No 1{tbl} Take 1 tablet by mouth every 6 (six) hours as needed for up to 10 days. Max Daily Amount: 4 tablets [facility] methocarbam oL (ROBAXIN) 500 MG tablet 04-03 00:00: 00 04-13 23:59 :00 No 500mg Q.25D Take 1 tablet (500 mg total) by mouth 4 (four) times daily for 10 days. [facility] HYDROcodone -acetaminop hen (NORCO 10-325) 10-325 mg per tablet 04-03 00:00: 00 04-13 23:59 :00 No 1{tbl} Take 1 tablet by mouth every 6 (six) hours as needed for up to 10 days. Max Daily Amount: 4 tablets [facility] methocarbam oL (ROBAXIN) 500 MG tablet 15 00:00: 00 04-13 23:59 :00 No 500mg Q.25D Take 1 tablet (500 mg total) by mouth 4 (four) times daily for 10 days. [facility] HYDROcodone -acetaminop hen (NORCO 10-325) 10-325 mg per tablet 04-03 00:00: 00 04-13 23:59 :00 No 1{tbl} Take 1 tablet by mouth every 6 (six) hours as needed for up to 10 days. Max Daily Amount: 4 tablets [facility] methocarbam oL (ROBAXIN) 500 MG tablet 04-03 00:00: 00 04-13 23:59 :00 No 500mg Q.25D Take 1 tablet (500 mg total) by mouth 4 (four) times daily for 10 days. [facility] HYDROcodone -acetaminop hen (NORCO 10-325) 10-325 mg per tablet 04-03 00:00: 00 04-13 23:59 :00 No 1{tbl} Take 1 tablet by mouth every 6 (six) hours as needed for up to 10 days. Max Daily Amount: 4 tablets [facility] methocarbam oL (ROBAXIN) 500 MG tablet 04-03 00:00: 00 04-13 23:59 :00 No 500mg Q.25D Take 1 tablet (500 mg total) by mouth 4 (four) times daily for 10 days. [facility] HYDROcodone -acetaminop hen (NORCO 10-325) 10-325 mg per tablet 04-03 00:00: 00 04-13 23:59 :00 No 1{tbl} Take 1 tablet by mouth every 6 (six) hours as needed for up to 10 days. Max Daily Amount: 4 tablets [facility] methocarbam oL (ROBAXIN) 500 MG tablet 15 00:00: 00 04-13 23:59 :00 No 500mg Q.25D Take 1 tablet (500 mg total) by mouth 4 (four) times daily for 10 days. [facility] HYDROcodone -acetaminop hen (NORCO 10-325) 10-325 mg per tablet 04-03 00:00: 00 04-13 23:59 :00 No 1{tbl} Take 1 tablet by mouth every 6 (six) hours as needed for up to 10 days. Max Daily Amount: 4 tablets [facility] methocarbam oL (ROBAXIN) 500 MG tablet 04-03 00:00: 00 04-13 23:59 :00 No 500mg Q.25D Take 1 tablet (500 mg total) by mouth 4 (four) times daily for 10 days. [facility] HYDROcodone -acetaminop hen (NORCO 10-325) 10-325 mg per tablet 04-03 00:00: 00 04-13 23:59 :00 No 1{tbl} Take 1 tablet by mouth every 6 (six) hours as needed for up to 10 days. Max Daily Amount: 4 tablets [facility] methocarbam oL (ROBAXIN) 500 MG tablet 04-03 00:00: 00 04-13 23:59 :00 No 500mg Q.25D Take 1 tablet (500 mg total) by mouth 4 (four) times daily for 10 days. [facility] HYDROcodone -acetaminop hen (NORCO 10-325) 10-325 mg per tablet 04-03 00:00: 00 04-13 23:59 :00 No 1{tbl} Take 1 tablet by mouth every 6 (six) hours as needed for up to 10 days. Max Daily Amount: 4 tablets [facility] methocarbam oL (ROBAXIN) 500 MG tablet 04-03 00:00: 00 04-13 23:59 :00 No 500mg Q.25D Take 1 tablet (500 mg total) by mouth 4 (four) times daily for 10 days. [facility] HYDROcodone -acetaminop hen (NORCO 10-325) 10-325 mg per tablet 04-03 00:00: 00 04-13 23:59 :00 No 1{tbl} Take 1 tablet by mouth every 6 (six) hours as needed for up to 10 days. Max Daily Amount: 4 tablets [facility] methocarbam oL (ROBAXIN) 500 MG tablet 04-03 00:00: 00 04-13 23:59 :00 No 500mg Q.25D Take 1 tablet (500 mg total) by mouth 4 (four) times daily for 10 days. [facility] HYDROcodone -acetaminop hen (NORCO 10-325) 10-325 mg per tablet 04-03 00:00: 00 04-13 23:59 :00 No 1{tbl} Take 1 tablet by mouth every 6 (six) hours as needed for up to 10 days. Max Daily Amount: 4 tablets [facility] methocarbam oL (ROBAXIN) 500 MG tablet 04-03 00:00: 00 04-13 23:59 :00 No 500mg Q.25D Take 1 tablet (500 mg total) by mouth 4 (four) times daily for 10 days. [facility] HYDROcodone -acetaminop hen (NORCO 10-325) 10-325 mg per tablet 04-03 00:00: 00 04-13 23:59 :00 No 1{tbl} Take 1 tablet by mouth every 6 (six) hours as needed for up to 10 days. Max Daily Amount: 4 tablets [facility] methocarbam oL (ROBAXIN) 500 MG tablet 04-03 00:00: 00 04-13 23:59 :00 No 500mg Q.25D Take 1 tablet (500 mg total) by mouth 4 (four) times daily for 10 days. [facility] aspirin 81 MG EC tablet 04-03 00:00: 00 04-03 00:00 :00 No 81mg QD Take 1 tablet (81 mg total) by mouth daily for 90 days. [facility] DULoxetine (CYMBALTA) 30 MG capsule 04-03 00:00: 00 04-03 00:00 :00 No 30mg QD Take 1 capsule (30 mg total) by mouth daily. [facility] furosemide (LASIX) 20 MG tablet 15 00:00: 00 04-03 00:00 :00 No 20mg QD Take 1 tablet (20 mg total) by mouth daily. [facility] lisinopriL (PRINIVIL,Z ESTRIL) 5 MG tablet 04-03 00:00: 00 04-03 00:00 :00 No 5mg QD Take 1 tablet (5 mg total) by mouth daily. [facility] lisinopriL (PRINIVIL,Z ESTRIL) 5 MG tablet 04-03 00:00: 00 04-03 00:00 :00 No 5mg QD Take 1 tablet (5 mg total) by mouth daily. [facility] aspirin 81 MG EC tablet 04-03 00:00: 00 04-03 00:00 :00 No 81mg QD Take 1 tablet (81 mg total) by mouth daily for 90 days. [facility] DULoxetine (CYMBALTA) 30 MG capsule 04-03 00:00: 00 04-03 00:00 :00 No 30mg QD Take 1 capsule (30 mg total) by mouth daily. [facility] furosemide (LASIX) 20 MG tablet 04-03 00:00: 00 04-03 00:00 :00 No 20mg QD Take 1 tablet (20 mg total) by mouth daily. [facility] lisinopriL (PRINIVIL,Z ESTRIL) 5 MG tablet 04-03 00:00: 00 04-03 00:00 :00 No 5mg QD Take 1 tablet (5 mg total) by mouth daily. [facility] aspirin 81 MG EC tablet 04-03 00:00: 00 04-03 00:00 :00 No 81mg QD Take 1 tablet (81 mg total) by mouth daily for 90 days. [facility] DULoxetine (CYMBALTA) 30 MG capsule 04-03 00:00: 00 04-03 00:00 :00 No 30mg QD Take 1 capsule (30 mg total) by mouth daily. [facility] furosemide (LASIX) 20 MG tablet 04-03 00:00: 00 04-03 00:00 :00 No 20mg QD Take 1 tablet (20 mg total) by mouth daily. [facility] lisinopriL (PRINIVIL,Z ESTRIL) 5 MG tablet 04-03 00:00: 00 04-03 00:00 :00 No 5mg QD Take 1 tablet (5 mg total) by mouth daily. [facility] aspirin 81 MG EC tablet 04-03 00:00: 00 04-03 00:00 :00 No 81mg QD Take 1 tablet (81 mg total) by mouth daily for 90 days. [facility] DULoxetine (CYMBALTA) 30 MG capsule 04-03 00:00: 00 04-03 00:00 :00 No 30mg QD Take 1 capsule (30 mg total) by mouth daily. [facility] furosemide (LASIX) 20 MG tablet 04-03 00:00: 00 04-03 00:00 :00 No 20mg QD Take 1 tablet (20 mg total) by mouth daily. [facility] lisinopriL (PRINIVIL,Z ESTRIL) 5 MG tablet 04-03 00:00: 00 04-03 00:00 :00 No 5mg QD Take 1 tablet (5 mg total) by mouth daily. [facility] aspirin 81 MG EC tablet 04-03 00:00: 00 04-03 00:00 :00 No 81mg QD Take 1 tablet (81 mg total) by mouth daily for 90 days. [facility] DULoxetine (CYMBALTA) 30 MG capsule 04-03 00:00: 00 04-03 00:00 :00 No 30mg QD Take 1 capsule (30 mg total) by mouth daily. [facility] furosemide (LASIX) 20 MG tablet 04-03 00:00: 00 04-03 00:00 :00 No 20mg QD Take 1 tablet (20 mg total) by mouth daily. [facility] lisinopriL (PRINIVIL,Z ESTRIL) 5 MG tablet 04-03 00:00: 00 04-03 00:00 :00 No 5mg QD Take 1 tablet (5 mg total) by mouth daily. [facility] aspirin 81 MG EC tablet 04-03 00:00: 00 04-03 00:00 :00 No 81mg QD Take 1 tablet (81 mg total) by mouth daily for 90 days. [facility] DULoxetine (CYMBALTA) 30 MG capsule 04-03 00:00: 00 04-03 00:00 :00 No 30mg QD Take 1 capsule (30 mg total) by mouth daily. [facility] furosemide (LASIX) 20 MG tablet 04-03 00:00: 00 04-03 00:00 :00 No 20mg QD Take 1 tablet (20 mg total) by mouth daily. [facility] lisinopriL (PRINIVIL,Z ESTRIL) 5 MG tablet 04-03 00:00: 00 04-03 00:00 :00 No 5mg QD Take 1 tablet (5 mg total) by mouth daily. [facility] aspirin 81 MG EC tablet 04-03 00:00: 00 04-03 00:00 :00 No 81mg QD Take 1 tablet (81 mg total) by mouth daily for 90 days. [facility] DULoxetine (CYMBALTA) 30 MG capsule 04-03 00:00: 00 04-03 00:00 :00 No 30mg QD Take 1 capsule (30 mg total) by mouth daily. [facility] furosemide (LASIX) 20 MG tablet 04-03 00:00: 00 04-03 00:00 :00 No 20mg QD Take 1 tablet (20 mg total) by mouth daily. [facility] aspirin 81 MG EC tablet 04-03 00:00: 00 04-03 00:00 :00 No 81mg QD Take 1 tablet (81 mg total) by mouth daily for 90 days. [facility] DULoxetine (CYMBALTA) 30 MG capsule 04-03 00:00: 00 04-03 00:00 :00 No 30mg QD Take 1 capsule (30 mg total) by mouth daily. [facility] furosemide (LASIX) 20 MG tablet 04-03 00:00: 00 04-03 00:00 :00 No 20mg QD Take 1 tablet (20 mg total) by mouth daily. [facility] lisinopriL (PRINIVIL,Z ESTRIL) 5 MG tablet 04-03 00:00: 00 04-03 00:00 :00 No 5mg QD Take 1 tablet (5 mg total) by mouth daily. [facility] lisinopriL (PRINIVIL,Z ESTRIL) 5 MG tablet 04-03 00:00: 00 04-03 00:00 :00 No 5mg QD Take 1 tablet (5 mg total) by mouth daily. [facility] aspirin 81 MG EC tablet 04-03 00:00: 00 04-03 00:00 :00 No 81mg QD Take 1 tablet (81 mg total) by mouth daily for 90 days. [facility] DULoxetine (CYMBALTA) 30 MG capsule 04-03 00:00: 00 04-03 00:00 :00 No 30mg QD Take 1 capsule (30 mg total) by mouth daily. [facility] furosemide (LASIX) 20 MG tablet 04-03 00:00: 00 04-03 00:00 :00 No 20mg QD Take 1 tablet (20 mg total) by mouth daily. [facility] lisinopriL (PRINIVIL,Z ESTRIL) 5 MG tablet 04-03 00:00: 00 04-03 00:00 :00 No 5mg QD Take 1 tablet (5 mg total) by mouth daily. [facility] aspirin 81 MG EC tablet 04-03 00:00: 00 04-03 00:00 :00 No 81mg QD Take 1 tablet (81 mg total) by mouth daily for 90 days. [facility] DULoxetine (CYMBALTA) 30 MG capsule 04-03 00:00: 00 04-03 00:00 :00 No 30mg QD Take 1 capsule (30 mg total) by mouth daily. [facility] furosemide (LASIX) 20 MG tablet 04-03 00:00: 00 04-03 00:00 :00 No 20mg QD Take 1 tablet (20 mg total) by mouth daily. [facility] lisinopriL (PRINIVIL,Z ESTRIL) 5 MG tablet 04-03 00:00: 00 04-03 00:00 :00 No 5mg QD Take 1 tablet (5 mg total) by mouth daily. [facility] aspirin 81 MG EC tablet 04-03 00:00: 00 04-03 00:00 :00 No 81mg QD Take 1 tablet (81 mg total) by mouth daily for 90 days. [facility] DULoxetine (CYMBALTA) 30 MG capsule 04-03 00:00: 00 04-03 00:00 :00 No 30mg QD Take 1 capsule (30 mg total) by mouth daily. [facility] furosemide (LASIX) 20 MG tablet 04-03 00:00: 00 04-03 00:00 :00 No 20mg QD Take 1 tablet (20 mg total) by mouth daily. [facility] lisinopriL (PRINIVIL,Z ESTRIL) 5 MG tablet 04-03 00:00: 00 04-03 00:00 :00 No 5mg QD Take 1 tablet (5 mg total) by mouth daily. [facility] aspirin 81 MG EC tablet 04-03 00:00: 00 04-03 00:00 :00 No 81mg QD Take 1 tablet (81 mg total) by mouth daily for 90 days. [facility] DULoxetine (CYMBALTA) 30 MG capsule 04-03 00:00: 00 04-03 00:00 :00 No 30mg QD Take 1 capsule (30 mg total) by mouth daily. [facility] furosemide (LASIX) 20 MG tablet 04-03 00:00: 00 04-03 00:00 :00 No 20mg QD Take 1 tablet (20 mg total) by mouth daily. [facility] lisinopriL (PRINIVIL,Z ESTRIL) 5 MG tablet 04-03 00:00: 00 04-03 00:00 :00 No 5mg QD Take 1 tablet (5 mg total) by mouth daily. [facility] aspirin 81 MG EC tablet 04-03 00:00: 00 04-03 00:00 :00 No 81mg QD Take 1 tablet (81 mg total) by mouth daily for 90 days. [facility] DULoxetine (CYMBALTA) 30 MG capsule 04-03 00:00: 00 04-03 00:00 :00 No 30mg QD Take 1 capsule (30 mg total) by mouth daily. [facility] furosemide (LASIX) 20 MG tablet 04-03 00:00: 00 04-03 00:00 :00 No 20mg QD Take 1 tablet (20 mg total) by mouth daily. [facility] lisinopriL (PRINIVIL,Z ESTRIL) 5 MG tablet 04-03 00:00: 00 04-03 00:00 :00 No 5mg QD Take 1 tablet (5 mg total) by mouth daily. [facility] aspirin 81 MG EC tablet 04-03 00:00: 00 04-03 00:00 :00 No 81mg QD Take 1 tablet (81 mg total) by mouth daily for 90 days. [facility] DULoxetine (CYMBALTA) 30 MG capsule 04-03 00:00: 00 04-03 00:00 :00 No 30mg QD Take 1 capsule (30 mg total) by mouth daily. [facility] furosemide (LASIX) 20 MG tablet 04-03 00:00: 00 04-03 00:00 :00 No 20mg QD Take 1 tablet (20 mg total) by mouth daily. [facility] lisinopriL (PRINIVIL,Z ESTRIL) 5 MG tablet 04-03 00:00: 00 04-03 00:00 :00 No 5mg QD Take 1 tablet (5 mg total) by mouth daily. [facility] aspirin 81 MG EC tablet 04-03 00:00: 00 04-03 00:00 :00 No 81mg QD Take 1 tablet (81 mg total) by mouth daily for 90 days. [facility] DULoxetine (CYMBALTA) 30 MG capsule 04-03 00:00: 00 04-03 00:00 :00 No 30mg QD Take 1 capsule (30 mg total) by mouth daily. [facility] furosemide (LASIX) 20 MG tablet 04-03 00:00: 00 04-03 00:00 :00 No 20mg QD Take 1 tablet (20 mg total) by mouth daily. [facility] lisinopriL (PRINIVIL,Z ESTRIL) 5 MG tablet 04-03 00:00: 00 04-03 00:00 :00 No 5mg QD Take 1 tablet (5 mg total) by mouth daily. [facility] aspirin 81 MG EC tablet 04-03 00:00: 00 04-03 00:00 :00 No 81mg QD Take 1 tablet (81 mg total) by mouth daily for 90 days. [facility] DULoxetine (CYMBALTA) 30 MG capsule 04-03 00:00: 00 04-03 00:00 :00 No 30mg QD Take 1 capsule (30 mg total) by mouth daily. [facility] furosemide (LASIX) 20 MG tablet 04-03 00:00: 00 04-03 00:00 :00 No 20mg QD Take 1 tablet (20 mg total) by mouth daily. [facility] lisinopriL (PRINIVIL,Z ESTRIL) 5 MG tablet 04-03 00:00: 00 04-03 00:00 :00 No 5mg QD Take 1 tablet (5 mg total) by mouth daily. [facility] aspirin 81 MG EC tablet 04-03 00:00: 00 04-03 00:00 :00 No 81mg QD Take 1 tablet (81 mg total) by mouth daily for 90 days. [facility] DULoxetine (CYMBALTA) 30 MG capsule 04-03 00:00: 00 04-03 00:00 :00 No 30mg QD Take 1 capsule (30 mg total) by mouth daily. [facility] furosemide (LASIX) 20 MG tablet 04-03 00:00: 00 04-03 00:00 :00 No 20mg QD Take 1 tablet (20 mg total) by mouth daily. [facility] lisinopriL (PRINIVIL,Z ESTRIL) 5 MG tablet 04-03 00:00: 00 04-03 00:00 :00 No 5mg QD Take 1 tablet (5 mg total) by mouth daily. [facility] aspirin 81 MG EC tablet 04-03 00:00: 00 04-03 00:00 :00 No 81mg QD Take 1 tablet (81 mg total) by mouth daily for 90 days. [facility] DULoxetine (CYMBALTA) 30 MG capsule 04-03 00:00: 00 04-03 00:00 :00 No 30mg QD Take 1 capsule (30 mg total) by mouth daily. [facility] furosemide (LASIX) 20 MG tablet 04-03 00:00: 00 04-03 00:00 :00 No 20mg QD Take 1 tablet (20 mg total) by mouth daily. [facility] lisinopriL (PRINIVIL,Z ESTRIL) 5 MG tablet 04-03 00:00: 00 04-03 00:00 :00 No 5mg QD Take 1 tablet (5 mg total) by mouth daily. [facility] aspirin 81 MG EC tablet 04-03 00:00: 00 04-03 00:00 :00 No 81mg QD Take 1 tablet (81 mg total) by mouth daily for 90 days. [facility] DULoxetine (CYMBALTA) 30 MG capsule 04-03 00:00: 00 04-03 00:00 :00 No 30mg QD Take 1 capsule (30 mg total) by mouth daily. [facility] furosemide (LASIX) 20 MG tablet 04-03 00:00: 00 04-03 00:00 :00 No 20mg QD Take 1 tablet (20 mg total) by mouth daily. [facility] lisinopriL (PRINIVIL,Z ESTRIL) 5 MG tablet 04-03 00:00: 00 04-03 00:00 :00 No 5mg QD Take 1 tablet (5 mg total) by mouth daily. [facility] aspirin 81 MG EC tablet 04-03 00:00: 00 04-03 00:00 :00 No 81mg QD Take 1 tablet (81 mg total) by mouth daily for 90 days. [facility] DULoxetine (CYMBALTA) 30 MG capsule 04-03 00:00: 00 04-03 00:00 :00 No 30mg QD Take 1 capsule (30 mg total) by mouth daily. [facility] furosemide (LASIX) 20 MG tablet 04-03 00:00: 00 04-03 00:00 :00 No 20mg QD Take 1 tablet (20 mg total) by mouth daily. [facility] lisinopriL (PRINIVIL,Z ESTRIL) 5 MG tablet 04-03 00:00: 00 04-03 00:00 :00 No 5mg QD Take 1 tablet (5 mg total) by mouth daily. [facility] aspirin 81 MG EC tablet 04-03 00:00: 00 04-03 00:00 :00 No 81mg QD Take 1 tablet (81 mg total) by mouth daily for 90 days. [facility] DULoxetine (CYMBALTA) 30 MG capsule 04-03 00:00: 00 04-03 00:00 :00 No 30mg QD Take 1 capsule (30 mg total) by mouth daily. [facility] furosemide (LASIX) 20 MG tablet 04-03 00:00: 00 04-03 00:00 :00 No 20mg QD Take 1 tablet (20 mg total) by mouth daily. [facility] lisinopriL (PRINIVIL,Z ESTRIL) 5 MG tablet 04-03 00:00: 00 04-03 00:00 :00 No 5mg QD Take 1 tablet (5 mg total) by mouth daily. [facility] aspirin 81 MG EC tablet 04-03 00:00: 00 04-03 00:00 :00 No 81mg QD Take 1 tablet (81 mg total) by mouth daily for 90 days. [facility] DULoxetine (CYMBALTA) 30 MG capsule 04-03 00:00: 00 04-03 00:00 :00 No 30mg QD Take 1 capsule (30 mg total) by mouth daily. [facility] furosemide (LASIX) 20 MG tablet 04-03 00:00: 00 04-03 00:00 :00 No 20mg QD Take 1 tablet (20 mg total) by mouth daily. [facility] lisinopriL (PRINIVIL,Z ESTRIL) 5 MG tablet 04-03 00:00: 00 04-03 00:00 :00 No 5mg QD Take 1 tablet (5 mg total) by mouth daily. [facility] aspirin 81 MG EC tablet 04-03 00:00: 00 04-03 00:00 :00 No 81mg QD Take 1 tablet (81 mg total) by mouth daily for 90 days. [facility] DULoxetine (CYMBALTA) 30 MG capsule 04-03 00:00: 00 04-03 00:00 :00 No 30mg QD Take 1 capsule (30 mg total) by mouth daily. [facility] furosemide (LASIX) 20 MG tablet 04-03 00:00: 00 04-03 00:00 :00 No 20mg QD Take 1 tablet (20 mg total) by mouth daily. [facility] lisinopriL (PRINIVIL,Z ESTRIL) 5 MG tablet 04-03 00:00: 00 04-03 00:00 :00 No 5mg QD Take 1 tablet (5 mg total) by mouth daily. [facility] aspirin 81 MG EC tablet 04-03 00:00: 00 04-03 00:00 :00 No 81mg QD Take 1 tablet (81 mg total) by mouth daily for 90 days. [facility] DULoxetine (CYMBALTA) 30 MG capsule 04-03 00:00: 00 04-03 00:00 :00 No 30mg QD Take 1 capsule (30 mg total) by mouth daily. [facility] furosemide (LASIX) 20 MG tablet 04-03 00:00: 00 04-03 00:00 :00 No 20mg QD Take 1 tablet (20 mg total) by mouth daily. [facility] aspirin 81 MG EC tablet 04-03 00:00: 00 04-03 00:00 :00 No 81mg QD Take 1 tablet (81 mg total) by mouth daily for 90 days. [facility] DULoxetine (CYMBALTA) 30 MG capsule 04-03 00:00: 00 04-03 00:00 :00 No 30mg QD Take 1 capsule (30 mg total) by mouth daily. [facility] furosemide (LASIX) 20 MG tablet 04-03 00:00: 00 04-03 00:00 :00 No 20mg QD Take 1 tablet (20 mg total) by mouth daily. [facility] lisinopriL (PRINIVIL,Z ESTRIL) 5 MG tablet 04-03 00:00: 00 04-03 00:00 :00 No 5mg QD Take 1 tablet (5 mg total) by mouth daily. [facility] gabapentin (NEURONTIN) 300 MG capsule 04-02 00:00: 00 04-03 00:00 :00 No 300mg Q.[id number] 3D Take 1 capsule (300 mg total) by mouth 3 (three) times daily for 90 days. [facility] divalproex (DEPAKOTE) 500 MG EC tablet 04-02 00:00: 00 04-03 00:00 :00 No 500mg Q.5D Take 1 tablet (500 mg total) by mouth 2 (two) times daily for 90 days. [facility] clonazePAM (KlonoPIN) 0.5 MG tablet 04-02 00:00: 00 04-03 00:00 :00 No .25mg Take 0.5 tablets (0.25 mg total) by mouth 2 (two) times daily as needed for Anxiety for up to 30 days. Max Daily Amount: 0.5 mg [facility] gabapentin (NEURONTIN) 300 MG capsule 04-02 00:00: 00 04-03 00:00 :00 No 300mg Q.[id number] 3D Take 1 capsule (300 mg total) by mouth 3 (three) times daily for 90 days. [facility] HYDROcodone -acetaminop hen (NORCO 10-325) 10-325 mg per tablet 04-02 00:00: 00 04-03 00:00 :00 No 1{tbl} Take 1 tablet by mouth every 6 (six) hours as needed for up to 10 days. Max Daily Amount: 4 tablets [facility] HYDROcodone -acetaminop hen (NORCO 10-325) 10-325 mg per tablet 04-02 00:00: 00 04-03 00:00 :00 No 1{tbl} Take 1 tablet by mouth every 6 (six) hours as needed for up to 10 days. Max Daily Amount: 4 tablets [facility] methocarbam oL (ROBAXIN) 500 MG tablet 04-02 00:00: 00 04-03 00:00 :00 No 500mg Q.25D Take 1 tablet (500 mg total) by mouth 4 (four) times daily for 10 days. [facility] methocarbam oL (ROBAXIN) 500 MG tablet 04-02 00:00: 00 04-03 00:00 :00 No 500mg Q.25D Take 1 tablet (500 mg total) by mouth 4 (four) times daily for 10 days. [facility] divalproex (DEPAKOTE) 500 MG EC tablet 04-02 00:00: 00 04-03 00:00 :00 No 500mg Q.5D Take 1 tablet (500 mg total) by mouth 2 (two) times daily for 90 days. [facility] clonazePAM (KlonoPIN) 0.5 MG tablet 04-02 00:00: 00 04-03 00:00 :00 No .25mg Take 0.5 tablets (0.25 mg total) by mouth 2 (two) times daily as needed for Anxiety for up to 30 days. Max Daily Amount: 0.5 mg [facility] gabapentin (NEURONTIN) 300 MG capsule 04-02 00:00: 00 04-03 00:00 :00 No 300mg Q.[id number] 3D Take 1 capsule (300 mg total) by mouth 3 (three) times daily for 90 days. [facility] HYDROcodone -acetaminop hen (NORCO 10-325) 10-325 mg per tablet 04-02 00:00: 00 04-03 00:00 :00 No 1{tbl} Take 1 tablet by mouth every 6 (six) hours as needed for up to 10 days. Max Daily Amount: 4 tablets [facility] methocarbam oL (ROBAXIN) 500 MG tablet 04-02 00:00: 00 04-03 00:00 :00 No 500mg Q.25D Take 1 tablet (500 mg total) by mouth 4 (four) times daily for 10 days. [facility] divalproex (DEPAKOTE) 500 MG EC tablet 04-02 00:00: 00 04-03 00:00 :00 No 500mg Q.5D Take 1 tablet (500 mg total) by mouth 2 (two) times daily for 90 days. [facility] clonazePAM (KlonoPIN) 0.5 MG tablet 04-02 00:00: 00 04-03 00:00 :00 No .25mg Take 0.5 tablets (0.25 mg total) by mouth 2 (two) times daily as needed for Anxiety for up to 30 days. Max Daily Amount: 0.5 mg [facility] gabapentin (NEURONTIN) 300 MG capsule 04-02 00:00: 00 04-03 00:00 :00 No 300mg Q.[id number] 3D Take 1 capsule (300 mg total) by mouth 3 (three) times daily for 90 days. [facility] HYDROcodone -acetaminop hen (NORCO 10-325) 10-325 mg per tablet 04-02 00:00: 00 04-03 00:00 :00 No 1{tbl} Take 1 tablet by mouth every 6 (six) hours as needed for up to 10 days. Max Daily Amount: 4 tablets [facility] methocarbam oL (ROBAXIN) 500 MG tablet 04-02 00:00: 00 04-03 00:00 :00 No 500mg Q.25D Take 1 tablet (500 mg total) by mouth 4 (four) times daily for 10 days. [facility] divalproex (DEPAKOTE) 500 MG EC tablet 04-02 00:00: 00 04-03 00:00 :00 No 500mg Q.5D Take 1 tablet (500 mg total) by mouth 2 (two) times daily for 90 days. [facility] clonazePAM (KlonoPIN) 0.5 MG tablet 04-02 00:00: 00 04-03 00:00 :00 No .25mg Take 0.5 tablets (0.25 mg total) by mouth 2 (two) times daily as needed for Anxiety for up to 30 days. Max Daily Amount: 0.5 mg [facility] gabapentin (NEURONTIN) 300 MG capsule 04-02 00:00: 00 04-03 00:00 :00 No 300mg Q.[id number] 3D Take 1 capsule (300 mg total) by mouth 3 (three) times daily for 90 days. [facility] HYDROcodone -acetaminop hen (NORCO 10-325) 10-325 mg per tablet 04-02 00:00: 00 04-03 00:00 :00 No 1{tbl} Take 1 tablet by mouth every 6 (six) hours as needed for up to 10 days. Max Daily Amount: 4 tablets [facility] methocarbam oL (ROBAXIN) 500 MG tablet 04-02 00:00: 00 04-03 00:00 :00 No 500mg Q.25D Take 1 tablet (500 mg total) by mouth 4 (four) times daily for 10 days. [facility] divalproex (DEPAKOTE) 500 MG EC tablet 04-02 00:00: 00 04-03 00:00 :00 No 500mg Q.5D Take 1 tablet (500 mg total) by mouth 2 (two) times daily for 90 days. [facility] clonazePAM (KlonoPIN) 0.5 MG tablet 04-02 00:00: 00 04-03 00:00 :00 No .25mg Take 0.5 tablets (0.25 mg total) by mouth 2 (two) times daily as needed for Anxiety for up to 30 days. Max Daily Amount: 0.5 mg [facility] gabapentin (NEURONTIN) 300 MG capsule 04-02 00:00: 00 04-03 00:00 :00 No 300mg Q.[id number] 3D Take 1 capsule (300 mg total) by mouth 3 (three) times daily for 90 days. [facility] HYDROcodone -acetaminop hen (NORCO 10-325) 10-325 mg per tablet 04-02 00:00: 00 04-03 00:00 :00 No 1{tbl} Take 1 tablet by mouth every 6 (six) hours as needed for up to 10 days. Max Daily Amount: 4 tablets [facility] methocarbam oL (ROBAXIN) 500 MG tablet 04-02 00:00: 00 04-03 00:00 :00 No 500mg Q.25D Take 1 tablet (500 mg total) by mouth 4 (four) times daily for 10 days. [facility] divalproex (DEPAKOTE) 500 MG EC tablet 04-02 00:00: 00 04-03 00:00 :00 No 500mg Q.5D Take 1 tablet (500 mg total) by mouth 2 (two) times daily for 90 days. [facility] clonazePAM (KlonoPIN) 0.5 MG tablet 04-02 00:00: 00 04-03 00:00 :00 No .25mg Take 0.5 tablets (0.25 mg total) by mouth 2 (two) times daily as needed for Anxiety for up to 30 days. Max Daily Amount: 0.5 mg [facility] gabapentin (NEURONTIN) 300 MG capsule 04-02 00:00: 00 04-03 00:00 :00 No 300mg Q.[id number] 3D Take 1 capsule (300 mg total) by mouth 3 (three) times daily for 90 days. [facility] HYDROcodone -acetaminop hen (NORCO 10-325) 10-325 mg per tablet 04-02 00:00: 00 04-03 00:00 :00 No 1{tbl} Take 1 tablet by mouth every 6 (six) hours as needed for up to 10 days. Max Daily Amount: 4 tablets [facility] methocarbam oL (ROBAXIN) 500 MG tablet 04-02 00:00: 00 04-03 00:00 :00 No 500mg Q.25D Take 1 tablet (500 mg total) by mouth 4 (four) times daily for 10 days. [facility] divalproex (DEPAKOTE) 500 MG EC tablet 04-02 00:00: 00 04-03 00:00 :00 No 500mg Q.5D Take 1 tablet (500 mg total) by mouth 2 (two) times daily for 90 days. [facility] clonazePAM (KlonoPIN) 0.5 MG tablet 04-02 00:00: 00 04-03 00:00 :00 No .25mg Take 0.5 tablets (0.25 mg total) by mouth 2 (two) times daily as needed for Anxiety for up to 30 days. Max Daily Amount: 0.5 mg [facility] gabapentin (NEURONTIN) 300 MG capsule 04-02 00:00: 00 04-03 00:00 :00 No 300mg Q.[id number] 3D Take 1 capsule (300 mg total) by mouth 3 (three) times daily for 90 days. [facility] divalproex (DEPAKOTE) 500 MG EC tablet 04-02 00:00: 00 04-03 00:00 :00 No 500mg Q.5D Take 1 tablet (500 mg total) by mouth 2 (two) times daily for 90 days. [facility] clonazePAM (KlonoPIN) 0.5 MG tablet 04-02 00:00: 00 04-03 00:00 :00 No .25mg Take 0.5 tablets (0.25 mg total) by mouth 2 (two) times daily as needed for Anxiety for up to 30 days. Max Daily Amount: 0.5 mg [facility] gabapentin (NEURONTIN) 300 MG capsule 04-02 00:00: 00 04-03 00:00 :00 No 300mg Q.[id number] 3D Take 1 capsule (300 mg total) by mouth 3 (three) times daily for 90 days. [facility] HYDROcodone -acetaminop hen (NORCO 10-325) 10-325 mg per tablet 04-02 00:00: 00 04-03 00:00 :00 No 1{tbl} Take 1 tablet by mouth every 6 (six) hours as needed for up to 10 days. Max Daily Amount: 4 tablets [facility] HYDROcodone -acetaminop hen (NORCO 10-325) 10-325 mg per tablet 04-02 00:00: 00 04-03 00:00 :00 No 1{tbl} Take 1 tablet by mouth every 6 (six) hours as needed for up to 10 days. Max Daily Amount: 4 tablets [facility] methocarbam oL (ROBAXIN) 500 MG tablet 04-02 00:00: 00 04-03 00:00 :00 No 500mg Q.25D Take 1 tablet (500 mg total) by mouth 4 (four) times daily for 10 days. [facility] methocarbam oL (ROBAXIN) 500 MG tablet 04-02 00:00: 00 04-03 00:00 :00 No 500mg Q.25D Take 1 tablet (500 mg total) by mouth 4 (four) times daily for 10 days. [facility] divalproex (DEPAKOTE) 500 MG EC tablet 04-02 00:00: 00 04-03 00:00 :00 No 500mg Q.5D Take 1 tablet (500 mg total) by mouth 2 (two) times daily for 90 days. [facility] clonazePAM (KlonoPIN) 0.5 MG tablet 04-02 00:00: 00 04-03 00:00 :00 No .25mg Take 0.5 tablets (0.25 mg total) by mouth 2 (two) times daily as needed for Anxiety for up to 30 days. Max Daily Amount: 0.5 mg [facility] gabapentin (NEURONTIN) 300 MG capsule 04-02 00:00: 00 04-03 00:00 :00 No 300mg Q.[id number] 3D Take 1 capsule (300 mg total) by mouth 3 (three) times daily for 90 days. [facility] HYDROcodone -acetaminop hen (NORCO 10-325) 10-325 mg per tablet 04-02 00:00: 00 04-03 00:00 :00 No 1{tbl} Take 1 tablet by mouth every 6 (six) hours as needed for up to 10 days. Max Daily Amount: 4 tablets [facility] methocarbam oL (ROBAXIN) 500 MG tablet 04-02 00:00: 00 04-03 00:00 :00 No 500mg Q.25D Take 1 tablet (500 mg total) by mouth 4 (four) times daily for 10 days. [facility] divalproex (DEPAKOTE) 500 MG EC tablet 04-02 00:00: 00 04-03 00:00 :00 No 500mg Q.5D Take 1 tablet (500 mg total) by mouth 2 (two) times daily for 90 days. [facility] clonazePAM (KlonoPIN) 0.5 MG tablet 04-02 00:00: 00 04-03 00:00 :00 No .25mg Take 0.5 tablets (0.25 mg total) by mouth 2 (two) times daily as needed for Anxiety for up to 30 days. Max Daily Amount: 0.5 mg [facility] gabapentin (NEURONTIN) 300 MG capsule 04-02 00:00: 00 04-03 00:00 :00 No 300mg Q.[id number] 3D Take 1 capsule (300 mg total) by mouth 3 (three) times daily for 90 days. [facility] HYDROcodone -acetaminop hen (NORCO 10-325) 10-325 mg per tablet 04-02 00:00: 00 04-03 00:00 :00 No 1{tbl} Take 1 tablet by mouth every 6 (six) hours as needed for up to 10 days. Max Daily Amount: 4 tablets [facility] methocarbam oL (ROBAXIN) 500 MG tablet 04-02 00:00: 00 04-03 00:00 :00 No 500mg Q.25D Take 1 tablet (500 mg total) by mouth 4 (four) times daily for 10 days. [facility] divalproex (DEPAKOTE) 500 MG EC tablet 04-02 00:00: 00 04-03 00:00 :00 No 500mg Q.5D Take 1 tablet (500 mg total) by mouth 2 (two) times daily for 90 days. [facility] clonazePAM (KlonoPIN) 0.5 MG tablet 04-02 00:00: 00 04-03 00:00 :00 No .25mg Take 0.5 tablets (0.25 mg total) by mouth 2 (two) times daily as needed for Anxiety for up to 30 days. Max Daily Amount: 0.5 mg [facility] gabapentin (NEURONTIN) 300 MG capsule 04-02 00:00: 00 04-03 00:00 :00 No 300mg Q.[id number] 3D Take 1 capsule (300 mg total) by mouth 3 (three) times daily for 90 days. [facility] HYDROcodone -acetaminop hen (NORCO 10-325) 10-325 mg per tablet 04-02 00:00: 00 04-03 00:00 :00 No 1{tbl} Take 1 tablet by mouth every 6 (six) hours as needed for up to 10 days. Max Daily Amount: 4 tablets [facility] methocarbam oL (ROBAXIN) 500 MG tablet 04-02 00:00: 00 04-03 00:00 :00 No 500mg Q.25D Take 1 tablet (500 mg total) by mouth 4 (four) times daily for 10 days. [facility] divalproex (DEPAKOTE) 500 MG EC tablet 04-02 00:00: 00 04-03 00:00 :00 No 500mg Q.5D Take 1 tablet (500 mg total) by mouth 2 (two) times daily for 90 days. [facility] clonazePAM (KlonoPIN) 0.5 MG tablet 04-02 00:00: 00 04-03 00:00 :00 No .25mg Take 0.5 tablets (0.25 mg total) by mouth 2 (two) times daily as needed for Anxiety for up to 30 days. Max Daily Amount: 0.5 mg [facility] gabapentin (NEURONTIN) 300 MG capsule 04-02 00:00: 00 04-03 00:00 :00 No 300mg Q.[id number] 3D Take 1 capsule (300 mg total) by mouth 3 (three) times daily for 90 days. [facility] HYDROcodone -acetaminop hen (NORCO 10-325) 10-325 mg per tablet 04-02 00:00: 00 04-03 00:00 :00 No 1{tbl} Take 1 tablet by mouth every 6 (six) hours as needed for up to 10 days. Max Daily Amount: 4 tablets [facility] methocarbam oL (ROBAXIN) 500 MG tablet 04-02 00:00: 00 04-03 00:00 :00 No 500mg Q.25D Take 1 tablet (500 mg total) by mouth 4 (four) times daily for 10 days. [facility] divalproex (DEPAKOTE) 500 MG EC tablet 04-02 00:00: 00 04-03 00:00 :00 No 500mg Q.5D Take 1 tablet (500 mg total) by mouth 2 (two) times daily for 90 days. [facility] clonazePAM (KlonoPIN) 0.5 MG tablet 04-02 00:00: 00 04-03 00:00 :00 No .25mg Take 0.5 tablets (0.25 mg total) by mouth 2 (two) times daily as needed for Anxiety for up to 30 days. Max Daily Amount: 0.5 mg [facility] gabapentin (NEURONTIN) 300 MG capsule 04-02 00:00: 00 04-03 00:00 :00 No 300mg Q.[id number] 3D Take 1 capsule (300 mg total) by mouth 3 (three) times daily for 90 days. [facility] HYDROcodone -acetaminop hen (NORCO 10-325) 10-325 mg per tablet 04-02 00:00: 00 04-03 00:00 :00 No 1{tbl} Take 1 tablet by mouth every 6 (six) hours as needed for up to 10 days. Max Daily Amount: 4 tablets [facility] methocarbam oL (ROBAXIN) 500 MG tablet 04-02 00:00: 00 04-03 00:00 :00 No 500mg Q.25D Take 1 tablet (500 mg total) by mouth 4 (four) times daily for 10 days. [facility] divalproex (DEPAKOTE) 500 MG EC tablet 04-02 00:00: 00 04-03 00:00 :00 No 500mg Q.5D Take 1 tablet (500 mg total) by mouth 2 (two) times daily for 90 days. [facility] clonazePAM (KlonoPIN) 0.5 MG tablet 04-02 00:00: 00 04-03 00:00 :00 No .25mg Take 0.5 tablets (0.25 mg total) by mouth 2 (two) times daily as needed for Anxiety for up to 30 days. Max Daily Amount: 0.5 mg [facility] gabapentin (NEURONTIN) 300 MG capsule 04-02 00:00: 00 04-03 00:00 :00 No 300mg Q.[id number] 3D Take 1 capsule (300 mg total) by mouth 3 (three) times daily for 90 days. [facility] HYDROcodone -acetaminop hen (NORCO 10-325) 10-325 mg per tablet 04-02 00:00: 00 04-03 00:00 :00 No 1{tbl} Take 1 tablet by mouth every 6 (six) hours as needed for up to 10 days. Max Daily Amount: 4 tablets [facility] methocarbam oL (ROBAXIN) 500 MG tablet 04-02 00:00: 00 04-03 00:00 :00 No 500mg Q.25D Take 1 tablet (500 mg total) by mouth 4 (four) times daily for 10 days. [facility] divalproex (DEPAKOTE) 500 MG EC tablet 04-02 00:00: 00 04-03 00:00 :00 No 500mg Q.5D Take 1 tablet (500 mg total) by mouth 2 (two) times daily for 90 days. [facility] clonazePAM (KlonoPIN) 0.5 MG tablet 04-02 00:00: 00 04-03 00:00 :00 No .25mg Take 0.5 tablets (0.25 mg total) by mouth 2 (two) times daily as needed for Anxiety for up to 30 days. Max Daily Amount: 0.5 mg [facility] gabapentin (NEURONTIN) 300 MG capsule 04-02 00:00: 00 04-03 00:00 :00 No 300mg Q.[id number] 3D Take 1 capsule (300 mg total) by mouth 3 (three) times daily for 90 days. [facility] HYDROcodone -acetaminop hen (NORCO 10-325) 10-325 mg per tablet 04-02 00:00: 00 04-03 00:00 :00 No 1{tbl} Take 1 tablet by mouth every 6 (six) hours as needed for up to 10 days. Max Daily Amount: 4 tablets [facility] methocarbam oL (ROBAXIN) 500 MG tablet 04-02 00:00: 00 04-03 00:00 :00 No 500mg Q.25D Take 1 tablet (500 mg total) by mouth 4 (four) times daily for 10 days. [facility] divalproex (DEPAKOTE) 500 MG EC tablet 04-02 00:00: 00 04-03 00:00 :00 No 500mg Q.5D Take 1 tablet (500 mg total) by mouth 2 (two) times daily for 90 days. [facility] clonazePAM (KlonoPIN) 0.5 MG tablet 04-02 00:00: 00 04-03 00:00 :00 No .25mg Take 0.5 tablets (0.25 mg total) by mouth 2 (two) times daily as needed for Anxiety for up to 30 days. Max Daily Amount: 0.5 mg [facility] gabapentin (NEURONTIN) 300 MG capsule 04-02 00:00: 00 04-03 00:00 :00 No 300mg Q.[id number] 3D Take 1 capsule (300 mg total) by mouth 3 (three) times daily for 90 days. [facility] HYDROcodone -acetaminop hen (NORCO 10-325) 10-325 mg per tablet 04-02 00:00: 00 04-03 00:00 :00 No 1{tbl} Take 1 tablet by mouth every 6 (six) hours as needed for up to 10 days. Max Daily Amount: 4 tablets [facility] methocarbam oL (ROBAXIN) 500 MG tablet 04-02 00:00: 00 04-03 00:00 :00 No 500mg Q.25D Take 1 tablet (500 mg total) by mouth 4 (four) times daily for 10 days. [facility] divalproex (DEPAKOTE) 500 MG EC tablet 04-02 00:00: 00 04-03 00:00 :00 No 500mg Q.5D Take 1 tablet (500 mg total) by mouth 2 (two) times daily for 90 days. [facility] clonazePAM (KlonoPIN) 0.5 MG tablet 04-02 00:00: 00 04-03 00:00 :00 No .25mg Take 0.5 tablets (0.25 mg total) by mouth 2 (two) times daily as needed for Anxiety for up to 30 days. Max Daily Amount: 0.5 mg [facility] gabapentin (NEURONTIN) 300 MG capsule 04-02 00:00: 00 04-03 00:00 :00 No 300mg Q.[id number] 3D Take 1 capsule (300 mg total) by mouth 3 (three) times daily for 90 days. [facility] HYDROcodone -acetaminop hen (NORCO 10-325) 10-325 mg per tablet 04-02 00:00: 00 04-03 00:00 :00 No 1{tbl} Take 1 tablet by mouth every 6 (six) hours as needed for up to 10 days. Max Daily Amount: 4 tablets [facility] methocarbam oL (ROBAXIN) 500 MG tablet 04-02 00:00: 00 04-03 00:00 :00 No 500mg Q.25D Take 1 tablet (500 mg total) by mouth 4 (four) times daily for 10 days. [facility] divalproex (DEPAKOTE) 500 MG EC tablet 04-02 00:00: 00 04-03 00:00 :00 No 500mg Q.5D Take 1 tablet (500 mg total) by mouth 2 (two) times daily for 90 days. [facility] clonazePAM (KlonoPIN) 0.5 MG tablet 04-02 00:00: 00 04-03 00:00 :00 No .25mg Take 0.5 tablets (0.25 mg total) by mouth 2 (two) times daily as needed for Anxiety for up to 30 days. Max Daily Amount: 0.5 mg [facility] gabapentin (NEURONTIN) 300 MG capsule 04-02 00:00: 00 04-03 00:00 :00 No 300mg Q.[id number] 3D Take 1 capsule (300 mg total) by mouth 3 (three) times daily for 90 days. [facility] HYDROcodone -acetaminop hen (NORCO 10-325) 10-325 mg per tablet 04-02 00:00: 00 04-03 00:00 :00 No 1{tbl} Take 1 tablet by mouth every 6 (six) hours as needed for up to 10 days. Max Daily Amount: 4 tablets [facility] methocarbam oL (ROBAXIN) 500 MG tablet 04-02 00:00: 00 04-03 00:00 :00 No 500mg Q.25D Take 1 tablet (500 mg total) by mouth 4 (four) times daily for 10 days. [facility] divalproex (DEPAKOTE) 500 MG EC tablet 04-02 00:00: 00 04-03 00:00 :00 No 500mg Q.5D Take 1 tablet (500 mg total) by mouth 2 (two) times daily for 90 days. [facility] clonazePAM (KlonoPIN) 0.5 MG tablet 04-02 00:00: 00 04-03 00:00 :00 No .25mg Take 0.5 tablets (0.25 mg total) by mouth 2 (two) times daily as needed for Anxiety for up to 30 days. Max Daily Amount: 0.5 mg [facility] gabapentin (NEURONTIN) 300 MG capsule 04-02 00:00: 00 04-03 00:00 :00 No 300mg Q.[id number] 3D Take 1 capsule (300 mg total) by mouth 3 (three) times daily for 90 days. [facility] HYDROcodone -acetaminop hen (NORCO 10-325) 10-325 mg per tablet 04-02 00:00: 00 04-03 00:00 :00 No 1{tbl} Take 1 tablet by mouth every 6 (six) hours as needed for up to 10 days. Max Daily Amount: 4 tablets [facility] methocarbam oL (ROBAXIN) 500 MG tablet 04-02 00:00: 00 04-03 00:00 :00 No 500mg Q.25D Take 1 tablet (500 mg total) by mouth 4 (four) times daily for 10 days. [facility] divalproex (DEPAKOTE) 500 MG EC tablet 04-02 00:00: 00 04-03 00:00 :00 No 500mg Q.5D Take 1 tablet (500 mg total) by mouth 2 (two) times daily for 90 days. [facility] clonazePAM (KlonoPIN) 0.5 MG tablet 04-02 00:00: 00 04-03 00:00 :00 No .25mg Take 0.5 tablets (0.25 mg total) by mouth 2 (two) times daily as needed for Anxiety for up to 30 days. Max Daily Amount: 0.5 mg [facility] gabapentin (NEURONTIN) 300 MG capsule 04-02 00:00: 00 04-03 00:00 :00 No 300mg Q.[id number] 3D Take 1 capsule (300 mg total) by mouth 3 (three) times daily for 90 days. [facility] HYDROcodone -acetaminop hen (NORCO 10-325) 10-325 mg per tablet 04-02 00:00: 00 04-03 00:00 :00 No 1{tbl} Take 1 tablet by mouth every 6 (six) hours as needed for up to 10 days. Max Daily Amount: 4 tablets [facility] methocarbam oL (ROBAXIN) 500 MG tablet 04-02 00:00: 00 04-03 00:00 :00 No 500mg Q.25D Take 1 tablet (500 mg total) by mouth 4 (four) times daily for 10 days. [facility] divalproex (DEPAKOTE) 500 MG EC tablet 04-02 00:00: 00 04-03 00:00 :00 No 500mg Q.5D Take 1 tablet (500 mg total) by mouth 2 (two) times daily for 90 days. [facility] clonazePAM (KlonoPIN) 0.5 MG tablet 04-02 00:00: 00 04-03 00:00 :00 No .25mg Take 0.5 tablets (0.25 mg total) by mouth 2 (two) times daily as needed for Anxiety for up to 30 days. Max Daily Amount: 0.5 mg [facility] gabapentin (NEURONTIN) 300 MG capsule 04-02 00:00: 00 04-03 00:00 :00 No 300mg Q.[id number] 3D Take 1 capsule (300 mg total) by mouth 3 (three) times daily for 90 days. [facility] HYDROcodone -acetaminop hen (NORCO 10-325) 10-325 mg per tablet 04-02 00:00: 00 04-03 00:00 :00 No 1{tbl} Take 1 tablet by mouth every 6 (six) hours as needed for up to 10 days. Max Daily Amount: 4 tablets [facility] methocarbam oL (ROBAXIN) 500 MG tablet 04-02 00:00: 00 04-03 00:00 :00 No 500mg Q.25D Take 1 tablet (500 mg total) by mouth 4 (four) times daily for 10 days. [facility] divalproex (DEPAKOTE) 500 MG EC tablet 04-02 00:00: 00 04-03 00:00 :00 No 500mg Q.5D Take 1 tablet (500 mg total) by mouth 2 (two) times daily for 90 days. [facility] clonazePAM (KlonoPIN) 0.5 MG tablet 04-02 00:00: 00 04-03 00:00 :00 No .25mg Take 0.5 tablets (0.25 mg total) by mouth 2 (two) times daily as needed for Anxiety for up to 30 days. Max Daily Amount: 0.5 mg [facility] gabapentin (NEURONTIN) 300 MG capsule 04-02 00:00: 00 04-03 00:00 :00 No 300mg Q.[id number] 3D Take 1 capsule (300 mg total) by mouth 3 (three) times daily for 90 days. [facility] HYDROcodone -acetaminop hen (NORCO 10-325) 10-325 mg per tablet 04-02 00:00: 00 04-03 00:00 :00 No 1{tbl} Take 1 tablet by mouth every 6 (six) hours as needed for up to 10 days. Max Daily Amount: 4 tablets [facility] methocarbam oL (ROBAXIN) 500 MG tablet 04-02 00:00: 00 04-03 00:00 :00 No 500mg Q.25D Take 1 tablet (500 mg total) by mouth 4 (four) times daily for 10 days. [facility] divalproex (DEPAKOTE) 500 MG EC tablet 04-02 00:00: 00 04-03 00:00 :00 No 500mg Q.5D Take 1 tablet (500 mg total) by mouth 2 (two) times daily for 90 days. [facility] clonazePAM (KlonoPIN) 0.5 MG tablet 04-02 00:00: 00 04-03 00:00 :00 No .25mg Take 0.5 tablets (0.25 mg total) by mouth 2 (two) times daily as needed for Anxiety for up to 30 days. Max Daily Amount: 0.5 mg [facility] gabapentin (NEURONTIN) 300 MG capsule 04-02 00:00: 00 04-03 00:00 :00 No 300mg Q.[id number] 3D Take 1 capsule (300 mg total) by mouth 3 (three) times daily for 90 days. [facility] HYDROcodone -acetaminop hen (NORCO 10-325) 10-325 mg per tablet 04-02 00:00: 00 04-03 00:00 :00 No 1{tbl} Take 1 tablet by mouth every 6 (six) hours as needed for up to 10 days. Max Daily Amount: 4 tablets [facility] methocarbam oL (ROBAXIN) 500 MG tablet 04-02 00:00: 00 04-03 00:00 :00 No 500mg Q.25D Take 1 tablet (500 mg total) by mouth 4 (four) times daily for 10 days. [facility] divalproex (DEPAKOTE) 500 MG EC tablet 04-02 00:00: 00 04-03 00:00 :00 No 500mg Q.5D Take 1 tablet (500 mg total) by mouth 2 (two) times daily for 90 days. [facility] clonazePAM (KlonoPIN) 0.5 MG tablet 04-02 00:00: 00 04-03 00:00 :00 No .25mg Take 0.5 tablets (0.25 mg total) by mouth 2 (two) times daily as needed for Anxiety for up to 30 days. Max Daily Amount: 0.5 mg [facility] divalproex (DEPAKOTE) 500 MG EC tablet 04-02 00:00: 00 04-03 00:00 :00 No 500mg Q.5D Take 1 tablet (500 mg total) by mouth 2 (two) times daily for 90 days. [facility] clonazePAM (KlonoPIN) 0.5 MG tablet 04-02 00:00: 00 04-03 00:00 :00 No .25mg Take 0.5 tablets (0.25 mg total) by mouth 2 (two) times daily as needed for Anxiety for up to 30 days. Max Daily Amount: 0.5 mg [facility] gabapentin (NEURONTIN) 300 MG capsule 04-02 00:00: 00 04-03 00:00 :00 No 300mg Q.[id number] 3D Take 1 capsule (300 mg total) by mouth 3 (three) times daily for 90 days. [facility] HYDROcodone -acetaminop hen (NORCO 10-325) 10-325 mg per tablet 04-02 00:00: 00 04-03 00:00 :00 No 1{tbl} Take 1 tablet by mouth every 6 (six) hours as needed for up to 10 days. Max Daily Amount: 4 tablets [facility] methocarbam oL (ROBAXIN) 500 MG tablet 04-02 00:00: 00 04-03 00:00 :00 No 500mg Q.25D Take 1 tablet (500 mg total) by mouth 4 (four) times daily for 10 days. [facility] lacosamide (VIMPAT) 200 mg in NaCl 0.9% (NS) 50 mL piggyback 12-11 19:45: 00 12-11 19:57 :00 No 200mg 200 mg, IV Piggyback, ONCE, 1 dose, On Arpita 12/11/22 at 1445, Administer over 30 Minutes, 50 mL
Facu lty member approving Restricted medication : Alfonso ALVARADO [facility] ketorolac (TORADOL) injection 15 mg 12-11 18:15: 00 12-11 17:25 :00 No 15mg 15 mg, Slow IV Push, ONCE, 1 dose, On Arpita 12/11/22 at 1315, MICHAEL [facility] iopamidol (ISOVUE 370-500 mL) injection 80 mL 12-11 16:30: 00 12-11 16:27 :00 No [id number] 80mL 80 mL, Intravenou s, ONCE, 1 dose, On Arpita 12/11/22 at 1130, Routine [facility] nitroglycer in (NITROL) 2 % ointment 0.5 Inch 12-11 15:30: 00 12-11 14:31 :00 No .5[in_u s] 0.5 Inch, Transderma l (Apply To Skin), ONCE, 1 dose, On Thu12/11/22 at 1030, [facility] aspirin chewable tablet 324 mg 12-11 15:30: 00 12-11 14:30 :00 No 324mg 324 mg, Oral, ONCE, 1 dose, On Thu12/11/22 at 1030, Routine [facility] ondansetron (ZOFRAN (PF)) injection 4 mg 12-11 15:30: 00 12-11 14:29 :00 No 4mg 4 mg, Slow IV Push, ONCE, 1 dose, On Thu12/11/22 at 1030, [facility] LORazepam (ATIVAN) injection 1 mg 12-11 15:00: 00 12-11 14:57 :00 No 1mg 1 mg, Slow IV Push, ONCE, 1 dose, On Thu12/11/22 at 1000, STAT [facility] Lacosamide (VIMPAT) 100 mg tablet 12-11 00:00: 00 Yes [id number] 100mg Take 1 tablet by mouth in the morning and 1 tablet in the evening. [facility] acetaminoph en-codeine (TYLENOL #3) 300-30 mg tablet 1 tablet 11-18 05:30: 00 11-18 05:30 :00 No 1{tbl} 1 tablet, Oral, ONCE, 1 dose, On Thu11/18/22 at 0030, [facility] methocarbam oL (ROBAXIN) tablet 1,000 mg 11-18 05:30: 00 11-18 05:30 :00 No 1000mg 1,000 mg, Oral, ONCE, 1 dose, On Thu11/18/22 at 0030, [facility] ondansetron (ZOFRAN (PF)) injection 4 mg 11-18 04:45: 00 11-18 03:38 :00 No 4mg 4 mg, Slow IV Push, ONCE, 1 dose, On Thu11/17/22 at 2345, MICHAEL [facility] morpHINE (4 mg/mL) injection 4 mg 11-18 03:45: 00 11-18 03:38 :00 No 4mg 4 mg, Slow IV Push, ONCE, 1 dose, On Thu11/17/22 at 2245, Routine [facility] methocarbam oL (ROBAXIN) injection 1,000 mg 11-18 00:30: 00 11-17 23:47 :00 No 1000mg 1,000 mg, Intravenou s, ONCE, 1 dose, On Thu11/17/22 at 1930, MICHAEL [facility] methocarbam oL 500 mg tablet 11-18 00:00: 00 Yes [id number] 1000mg Take 2 tablets by mouth 4 (four) times daily as needed for Pain (scale 7-10). [facility] methocarbam oL 500 mg tablet 11-18 00:00: 00 Yes [id number] 1000mg Take 2 tablets by mouth 4 (four) times daily as needed for Pain (scale 7-10). [facility] acetaminoph en-codeine 300-60 mg tablet 11-18 00:00: 00 11-26 04:59 :00 No [id number] 1{tbl} Take 1 tablet by mouth every 6 (six) hours as needed for Pain for up to 7 days. Indication s: acute pain [facility] ketorolac (TORADOL) injection 15 mg 11-18 00:00: 00 11-17 23:08 :00 No 15mg 15 mg, Slow IV Push, ONCE, 1 dose, On Thu11/17/22 at 1900, Routine [facility] morpHINE (4 mg/mL) injection 4 mg 11-17 23:45: 00 11-17 23:49 :00 No 4mg 4 mg, Slow IV Push, ONCE, 1 dose, On Thu11/17/22 at 1845, Routine [facility] ondansetron (ZOFRAN (PF)) injection 4 mg 11-17 23:15: 00 11-17 23:06 :00 No 4mg 4 mg, Slow IV Push, ONCE, 1 dose, On Thu11/17/22 at 1815, MICHAEL [facility] lisinopriL (PRINIVIL,Z ESTRIL) tablet 10 mg 08-02 15:00: 00 Yes 10mg 10 mg, Oral, DAILY, First dose on 08/02/22 at 0900, Until Discontinu ed, Routine [facility] predniSONE (DELTASONE) tablet 40 mg 08-02 15:00: 00 08-07 14:59 :00 No 40mg 40 mg, Oral, DAILY, 5 doses, First dose on Thu08/02/22 at 0900, Last dose on Thu08/06/22 at 0900, Routine [facility] morpHINE (2 mg/mL) injection 2 mg 08-02 03:29: 15 Yes 2mg 2 mg, Slow IV Push, Q4HPRN, Starting on Thu08/01/22 at 2129, Until Discontinu ed, Routine, Pain (scale 7-10) [facility] levETIRAcet am (KEPPRA) in NACL (ISO-OS) 1,000 mg/100 mL RTU 08-02 00:00: 00 Yes 1000mg 1,000 mg, IV Piggyback, Q12H, First dose on Thu08/01/22 at 1800, Until Discontinu ed, Administer over 15 Minutes, 100 mL [facility] MULTIVITAMI N ORAL 08-01 23:49: 34 Yes 1{tbl} Take 1 Tab by mouth daily. [facility] omega-3 fatty acids-vitam in E (FISH OIL) 1,000 mg capsule 08-01 23:49: 34 Yes 1g Take 1 g by mouth daily. [facility] loratadine (CLARITIN LIQUI-GEL) 10 mg capsule 08-01 23:49: 34 Yes Take by mouth daily. [facility] ondansetron 4 mg tablet 08-01 23:49: 34 Yes 4mg Take 4 mg by mouth every 8 (eight) hours as needed. [facility] pantoprazol e 40 mg EC tablet 08-01 23:49: 34 Yes 40mg Take 40 mg by mouth daily. [facility] MULTIVITAMI N ORAL 08-01 23:49: 34 Yes 1{tbl} Take 1 Tab by mouth daily. [facility] omega-3 fatty acids-vitam in E (FISH OIL) 1,000 mg capsule 08-01 23:49: 34 Yes 1g Take 1 g by mouth daily. [facility] loratadine (CLARITIN LIQUI-GEL) 10 mg capsule 08-01 23:49: 34 Yes Take by mouth daily. [facility] ondansetron 4 mg tablet 08-01 23:49: 34 Yes 4mg Take 4 mg by mouth every 8 (eight) hours as needed. [facility] pantoprazol e 40 mg EC tablet 08-01 23:49: 34 Yes 40mg Take 40 mg by mouth daily. [facility] MULTIVITAMI N ORAL 08-01 23:49: 34 Yes 1{tbl} Take 1 Tab by mouth daily. [facility] omega-3 fatty acids-vitam in E (FISH OIL) 1,000 mg capsule 08-01 23:49: 34 Yes 1g Take 1 g by mouth daily. [facility] loratadine (CLARITIN LIQUI-GEL) 10 mg capsule 08-01 23:49: 34 Yes Take by mouth daily. [facility] ondansetron 4 mg tablet 08-01 23:49: 34 Yes 4mg Take 4 mg by mouth every 8 (eight) hours as needed. [facility] pantoprazol e 40 mg EC tablet 08-01 23:49: 34 Yes 40mg Take 40 mg by mouth daily. [facility] MULTIVITAMI N ORAL 08-01 23:49: 34 Yes 1{tbl} Take 1 Tab by mouth daily. [facility] omega-3 fatty acids-vitam in E (FISH OIL) 1,000 mg capsule 08-01 23:49: 34 Yes 1g Take 1 g by mouth daily. [facility] loratadine (CLARITIN LIQUI-GEL) 10 mg capsule 08-01 23:49: 34 Yes Take by mouth daily. [facility] ondansetron 4 mg tablet 08-01 23:49: 34 Yes 4mg Take 4 mg by mouth every 8 (eight) hours as needed. [facility] pantoprazol e 40 mg EC tablet 08-01 23:49: 34 Yes 40mg Take 40 mg by mouth daily. [facility] MULTIVITAMI N ORAL 08-01 23:49: 34 Yes 1{tbl} Take 1 Tab by mouth daily. [facility] omega-3 fatty acids-vitam in E (FISH OIL) 1,000 mg capsule 08-01 23:49: 34 Yes 1g Take 1 g by mouth daily. [facility] loratadine (CLARITIN LIQUI-GEL) 10 mg capsule 08-01 23:49: 34 Yes Take by mouth daily. [facility] ondansetron 4 mg tablet 08-01 23:49: 34 Yes 4mg Take 4 mg by mouth every 8 (eight) hours as needed. [facility] pantoprazol e 40 mg EC tablet 08-01 23:49: 34 Yes 40mg Take 40 mg by mouth daily. [facility] benzonatate (TESSALON PERLES) capsule 100 mg 08-01 20:00: 00 Yes 100mg 100 mg, Oral, Q8H, First dose on Thu08/01/22 at 1400, Until Discontinu ed, Routine [facility] ipratropium -albuteroL (DUONEB) 0.5 mg-3 mg(2.5 mg base)/3 mL nebulizer solution 3 mL 08-01 18:00: 00 Yes 3mL 3 mL, Inhalation , QID, First dose on Thu08/01/22 at 1200, Until Discontinu ed, Routine [facility] ipratropium -albuteroL (DUONEB) 0.5 mg-3 mg(2.5 mg base)/3 mL nebulizer solution 3 mL 08-01 17:07: 07 Yes 3mL 3 mL, Inhalation , QIDPRN, Starting on Thu08/01/22 at 1107, Until Discontinu ed, MICHAEL, Wheezing, Shortness of Breath [facility] sulfur hexafluorid e microsphr (LUMASON) injection 5 mL 08-01 17:00: 00 08-01 17:00 :00 No [id number] 5mL 5 mL, Intravenou s, ONCE, 1 dose, On Thu08/01/22 at 1100, Routine
mathematics faculty member approving Restricted medication : KYLEE MONTEZ [facility] pantoprazol e (PROTONIX) EC tablet 40 mg 08-01 15:00: 00 Yes 40mg 40 mg, Oral, DAILY, First dose on Thu08/01/22 at 0900, Until Discontinu ed, Routine [facility] aspirin chewable tablet 81 mg 08-01 15:00: 00 Yes 81mg 81 mg, Oral, DAILY, First dose on Thu08/01/22 at 0900, Until Discontinu ed, Routine [facility] amLODIPine (NORVASC) tablet 10 mg 08-01 15:00: 00 Yes 10mg 10 mg, Oral, DAILY, First dose on Thu08/01/22 at 0900, Until Discontinu ed, Routine [facility] levETIRAcet am (KEPPRA) tablet 500 mg 08-01 14:00: 00 08-01 23:56 :35 No 500mg 500 mg, Oral, BID, First dose on Thu08/01/22 at 0800, Until Discontinu ed, Routine [facility] carvediloL (COREG) tablet 6.25 mg 08-01 14:00: 00 08-01 17:29 :13 No 6.25mg 6.25 mg, Oral, BID MEALS, First dose on Thu08/01/22 at 0800, Until Discontinu ed, Routine [facility] levETIRAcet am (KEPPRA) in NACL (ISO-OS) 1,000 mg/100 mL RTU 08-01 06:45: 00 08-01 06:32 :00 No 1000mg 1,000 mg, IV Piggyback, ONCE, 1 dose, On Thu08/01/22 at 0045, Administer over 15 Minutes, 100 mL [facility] LORazepam (ATIVAN) injection 1 mg 08-01 05:52: 54 Yes 1mg 1 mg, Slow IV Push, Q4HPRN, Starting on Thu07/31/22 at 2352, Until Discontinu ed, Routine, Seizures, Agitation, Anxiety, ETOH / Cocaine Withdrawl [facility] foLIC acid (FOLATE) tablet 1 mg 08-01 05:45: 00 Yes 1mg 1 mg, Oral, DAILY, First dose on Thu07/31/22 at 2345, Until Discontinu ed, Routine [facility] thiamine (VITAMIN B1) tablet 100 mg 08-01 05:45: 00 Yes 100mg 100 mg, Oral, DAILY, First dose on Thu07/31/22 at 2345, Until Discontinu ed, Routine [facility] LORazepam (ATIVAN) injection 0.5 mg 08-01 05:30: 00 08-01 05:29 :00 No .5mg 0.5 mg, Slow IV Push, ONCE, 1 dose, On Thu07/31/22 at 2330, MICHAEL [facility] atorvastati n (LIPITOR) tablet 40 mg 08-01 03:00: 00 Yes 40mg 40 mg, Oral, QHS, First dose on Thu07/31/22 at 2100, Until Discontinu ed, Routine [facility] diphenhydrA MINE (BENADRYL) tablet 25 mg 08-01 00:32: 02 Yes 25mg 25 mg, Oral, Q6HPRN, Starting on Thu07/31/22 at 1832, Until Discontinu ed, Routine, Itching [facility] enoxaparin (LOVENOX) injection 40 mg 07-31 23:00: 00 Yes 40mg 40 mg, Subcutaneo us, DAILY, First dose on Arpita 07/31/22 at 1700, Until Discontinu ed, Routine [facility] morpHINE (2 mg/mL) injection 2 mg 07-31 23:00: 00 07-31 22:29 :00 No 2mg 2 mg, Slow IV Push, ONCE, 1 dose, On Arpita 07/31/22 at 1700, Routine [facility] HYDROcodone -acetaminop hen (NORCO) 10-325 mg tablet 1 tablet 07-31 22:01: 36 Yes 1{tbl} 1 tablet, Oral, Q6HPRN, Starting on Arpita 07/31/22 at 1601, Until Discontinu ed, Routine, Pain (scale 7-10) [facility] HYDROcodone -acetaminop hen (NORCO 5) 5-325 mg tablet 1 tablet 07-31 22:01: 34 08-02 22:00 :34 No 1{tbl} 1 tablet, Oral, Q6HPRN, Starting on Arpita 07/31/22 at 1601, Until 08/02/22 at 1600, Routine, Pain (scale 4-6) [facility] acetaminoph en (TYLENOL) tablet 650 mg 07-31 22:01: 33 Yes 650mg 650 mg, Oral, Q6HPRN, Starting on Thu07/31/22 at 1601, Until Discontinu ed, Routine, Pain (scale 1-3) [facility] ketorolac (TORADOL) injection 15 mg 07-31 21:45: 00 07-31 20:50 :00 No 15mg 15 mg, Slow IV Push, ONCE, 1 dose, On Arpita 07/31/22 at 1545, Routine [facility] ondansetron (ZOFRAN (PF)) injection 4 mg 07-31 21:00: 00 07-31 20:47 :00 No 4mg 4 mg, Slow IV Push, ONCE, 1 dose, On Arpita 07/31/22 at 1500[facility] 40 mg 07-31 20:15: 00 Yes 40mg 40 mg, Slow IV Push, Q12H, First dose on Arpita 07/31/22 at 1415, Until Discontinu ed, Routine [facility] methylpredn isolone sod succ (SOLU-MEDRO L) injection 125 mg 07-31 19:30: 00 07-31 18:54 :00 No 125mg 125 mg, Slow IV Push, ONCE NOW, 1 dose, On Arpita 07/31/22 at 1330, [facility] ipratropium -albuteroL (DUONEB) 0.5 mg-3 mg(2.5 mg base)/3 mL nebulizer solution 3 mL 07-31 19:30: 00 07-31 18:48 :00 No 3mL 3 mL, Inhalation , ONCE, 1 dose, On Arpita 07/31/22 at 1330, [facility] pantoprazol e 40 mg EC tablet 07-31 17:15: 40 Yes 40mg Take 40 mg by mouth daily. [facility] MULTIVITAMI N ORAL 07-31 15:50: 57 Yes 1{tbl} Take 1 Tab by mouth daily. [facility] loratadine (CLARITIN LIQUI-GEL) 10 mg capsule 07-31 15:50: 57 Yes Take by mouth daily. [facility] ondansetron 4 mg tablet 07-31 15:50: 57 Yes 4mg Take 4 mg by mouth every 8 (eight) hours as needed. [facility] omega-3 fatty acids-vitam in E (FISH OIL) 1,000 mg capsule 07-31 15:21: 27 Yes 1g Take 1 g by mouth daily. [facility] TAKE ONE (1) TABLET(S) BY MOUTH THREE TIMES A DAY NEEDED. 07-28 00:00: 00 No Methylpredn isolone 4 mg tablet 2021-07 00:00: 00 05-12 04:59 :00 No [id number] 4mg Take 1 tablet through enteral tube in the morning for 1 dose. [facility] Methylpredn isolone 4 mg tablet 2021-07 00:00: 00 05-11 04:59 :00 No [id number] 4mg Take 1 tablet through enteral tube every 12 (twelve) hours for 2 doses. [facility] MULTIVITAMI N ORAL 2021-07 14:44: 48 Yes 1{tbl} Take 1 Tab by mouth daily. [facility] omega-3 fatty acids-vitam in E (FISH OIL) 1,000 mg capsule 2021-07 14:44: 48 Yes 1g Take 1 g by mouth daily. [facility] loratadine (CLARITIN LIQUI-GEL) 10 mg capsule 2021-07 14:44: 48 Yes Take by mouth daily. [facility] ondansetron (ZOFRAN) 4 mg tablet 2021-07 14:44: 48 Yes 4mg Take 4 mg by mouth every 8 (eight) hours as needed. [facility] pantoprazol e (PROTONIX) 40 mg EC tablet 2021-07 14:44: 48 Yes 40mg Take 40 mg by mouth daily. [facility] DULoxetine (CYMBALTA) capsule 30 mg 2021-07 14:00: 00 Yes 30mg 30 mg, Oral, DAILY, First dose on Arpita 05/08/22 at 0900, Until Discontinu ed, Routine [facility] divalproex (DEPAKOTE) EC tablet 1,000 mg 2021-07 13:00: 00 Yes 1000mg 1,000 mg, Oral, BID, First dose (after last modificati on) on Arpita 05/08/22 at 0800, Until Discontinu ed, Routine [facility] Methylpredn isolone (MEDROL) tablet 4 mg 2021-07 08:50: 10 05-09 08:59 :00 No 4mg 4 mg, Oral, Q8H TAPER, 3 doses, First dose on Thu05/08/22 at 0400, Last dose on Thu05/08/22 at 2000, Routine [facility] acetaminoph en-codeine (TYLENOL #3) 300-30 mg tablet 1 tablet 2021-07 04:07: 01 Yes 1{tbl} 1 tablet, Oral, Q4HPRN, Starting on Thu05/07/22 at 2307, Until Discontinu ed, Routine, Pain (scale 7-10) [facility] morpHINE (2 mg/mL) injection 2 mg 2021-07 03:03: 15 Yes 2mg 2 mg, Slow IV Push, Q4HPRN, Starting on Thu05/07/22 at 2203, Until Discontinu ed, Routine, Pain (scale 7-10) [facility] LORazepam (ATIVAN) tablet 1 mg 2021-07 00:02: 18 Yes 1mg 1 mg, Oral, Q6HPRN, Starting on Thu05/07/22 at 1902, Until Discontinu ed, Routine, Anxiety [facility] cyclobenzap rine 5 mg tablet 2021-07 00:00: 00 Yes [id number] 5mg Take 1 tablet by mouth in the morning and 1 tablet at noon and 1 tablet in the evening. [facility] cyclobenzap rine 5 mg tablet 2021-07 00:00: 00 Yes [id number] 5mg Take 1 tablet by mouth in the morning and 1 tablet at noon and 1 tablet in the evening. [facility] cyclobenzap rine 5 mg tablet 2021-07 00:00: 00 Yes [id number] 5mg Take 1 tablet by mouth in the morning and 1 tablet at noon and 1 tablet in the evening. [facility] cyclobenzap rine 5 mg tablet 2021-07 00:00: 00 Yes [id number] 5mg Take 1 tablet by mouth in the morning and 1 tablet at noon and 1 tablet in the evening. [facility] cyclobenzap rine 5 mg tablet 2021-07 00:00: 00 Yes [id number] 5mg Take 1 tablet by mouth in the morning and 1 tablet at noon and 1 tablet in the evening. [facility] cyclobenzap rine 5 mg tablet 2021-07 00:00: 00 Yes [id number] 5mg Take 1 tablet by mouth in the morning and 1 tablet at noon and 1 tablet in the evening. [facility] cyclobenzap rine 5 mg tablet 2021-07 00:00: 00 Yes [id number] 5mg Take 1 tablet by mouth in the morning and 1 tablet at noon and 1 tablet in the evening. [facility] DULoxetine (CYMBALTA) 30 mg capsule 2021-07 00:00: 00 06-08 05:59 :00 No [id number] 60mg Take 2 capsules by mouth in the morning for 30 days. [facility] divalproex (DEPAKOTE) 250 mg EC tablet 2021-07 00:00: 00 06-08 05:59 :00 No [id number] 750mg Take 3 tablets by mouth every 8 (eight) hours for 30 days. [facility] LORazepam 1 mg tablet 2021-07 00:00: 00 05-19 04:59 :00 No [id number] 1mg Take 1 tablet by mouth every 6 (six) hours as needed for Anxiety or Agitation for up to 10 days. [facility] acetaminoph en-codeine 300-30 mg tablet 2021-07 00:00: 00 05-16 04:59 :00 No [id number] 1{tbl} Take 1 tablet by mouth every 4 (four) hours as needed for Pain (scale 7-10) for up to 7 days. Indication s: acute pain [facility] Methylpredn isolone 4 mg tablet 2021-07 00:00: 00 05-10 04:59 :00 No [id number] 4mg Take 1 tablet by mouth every 8 (eight) hours for 3 doses. [facility] divalproex (DEPAKOTE) EC tablet 750 mg 2021-07 0-19 01:00: 00 05-08 09:40 :23 No 750mg 750 mg, Oral, BID, First dose on Thu05/06/22 at 2000, Until Discontinu ed, Routine [facility] levETIRAcet am (KEPPRA) tablet 1,500 mg 2021-07 13:00: 00 05-06 18:38 :22 No 1500mg 1,500 mg, Oral, BID, First dose (after last modificati on) on Thu05/06/22 at 0800, Until Discontinu ed, Routine [facility] levETIRAcet am (KEPPRA) in NACL (ISO-OS) 1,000 mg/100 mL RTU 2021-07 05:00: 00 05-06 05:46 :00 No 1000mg 1,000 mg, IV Piggyback, ONCE, 1 dose, On Thu05/06/22 at 0000, Administer over 15 Minutes, 100 mL [facility] methocarbam oL (ROBAXIN) tablet 500 mg 2021-07 02:15: 00 05-06 23:21 :42 No 500mg 500 mg, Oral, QID, First dose on Thu05/05/22 at 2115, Until Discontinu ed, Routine [facility] LORazepam (ATIVAN) tablet 2 mg 2021-07 01:30: 00 05-06 01:03 :00 No 2mg 2 mg, Oral, ONCE, 1 dose, On Thu05/05/22 at 2030, Routine [facility] levETIRAcet am (KEPPRA) tablet 1,000 mg 2021-07 01:00: 00 05-06 04:48 :06 No 1000mg 1,000 mg, Oral, BID, First dose on Thu05/05/22 at 2000, Until Discontinu ed, Routine [facility] enoxaparin (LOVENOX) injection 40 mg 2021-07 00:15: 00 Yes 40mg 40 mg, Subcutaneo us, Q24H, First dose on Thu05/05/22 at 1915, Until Discontinu ed, Routine [facility] levETIRAcet am (KEPPRA) in NACL (ISO-OS) 1,000 mg/100 mL RTU 2021-07 19:45: 00 05-05 20:05 :00 No 1000mg 1,000 mg, IV Piggyback, ONCE, 1 dose, On Thu05/05/22 at 1445, Administer over 15 Minutes, 100 mL [facility] clonazePAM (KLONOPIN) tablet 0.5 mg 2021-07 19:30: 00 Yes .5mg 0.5 mg, Oral, BID, First dose on Thu05/05/22 at 1430, Until Discontinu ed, Routine [facility] ibuprofen (IBU) tablet 600 mg 2021-07 19:30: 00 Yes 600mg 600 mg, Oral, TID MEALS, First dose on Thu05/05/22 at 1430, Until Discontinu ed, Routine [facility] gabapentin (NEURONTIN) capsule 300 mg 2021-07 19:30: 00 Yes 300mg 300 mg, Oral, TID, First dose on Thu05/05/22 at 1430, Until Discontinu ed, Routine [facility] cyclobenzap rine (FLEXERIL) tablet 5 mg 2021-07 19:30: 00 Yes 5mg 5 mg, Oral, TID, First dose on Thu05/05/22 at 1430, Until Discontinu ed, Routine [facility] acetaminoph en (TYLENOL) tablet 1,000 mg 2021-07 19:30: 00 Yes 1000mg 1,000 mg, Oral, Q8H, First dose on Thu05/05/22 at 1430, Until Discontinu ed, Routine [facility] pantoprazol e (PROTONIX) EC tablet 40 mg 2021-07 14:00: 00 Yes 40mg 40 mg, Oral, DAILY, First dose on Thu05/05/22 at 0900, Until Discontinu ed, Routine [facility] docusate (COLACE) capsule 100 mg 2021-07 14:00: 00 Yes 100mg 100 mg, Oral, DAILY, First dose on Thu05/05/22 at 0900, Until Discontinu ed, Routine [facility] HYDROcodone -acetaminop hen (NORCO) 10-325 mg tablet 1 tablet 2021-07 10:32: 02 05-05 19:18 :52 No 1{tbl} 1 tablet, Oral, Q6HPRN, Starting on Thu05/05/22 at 0532, Until Thu05/05/22 at 1418, Routine, Pain (scale 7-10) [facility] ondansetron (ZOFRAN (PF)) injection 4 mg 2021-07 06:49: 57 Yes 4mg 4 mg, Slow IV Push, Q6HPRN, Starting on Thu05/05/22 at 0149, Until Discontinu ed, Routine, Nausea and Vomiting (N/V) [facility] HYDROcodone -acetaminop hen (NORCO 5) 5-325 mg tablet 1 tablet 2021-07 06:49: 41 05-05 10:32 :14 No 1{tbl} 1 tablet, Oral, Q6HPRN, Starting on Thu05/05/22 at 0149, Until Thu05/05/22 at 0532, Routine, Pain (scale 7-10) [facility] acetaminoph en (TYLENOL) tablet 325 mg 2021-07 06:49: 39 05-05 19:18 :52 No 325mg 325 mg, Oral, Q4HPRN, Starting on Thu05/05/22 at 0149, Until Thu05/05/22 at 1418, Routine, Pain (scale 4-6) [facility] ondansetron (ZOFRAN) tablet 4 mg 2021-07 04:00: 00 05-05 03:26 :00 No 4mg 4 mg, Oral, ONCE, 1 dose, On 05/04/22 at 2300, Routine [facility] morpHINE (2 mg/mL) injection 2 mg 2021-07 04:00: 00 05-05 03:26 :00 No 2mg 2 mg, Slow IV Push, ONCE, 1 dose, On 05/04/22 at 2300, Routine [facility] aspirin 81 mg chewable tablet 04-16 00:00: 00 Yes [id number] 81mg Take 1 tablet by mouth in the morning. [facility] aspirin 81 mg chewable tablet 04-16 00:00: 00 Yes [id number] 81mg Take 1 tablet by mouth in the morning. [facility] aspirin 81 mg chewable tablet 0 04-16 00:00: 00 Yes [id number] 81mg Take 1 tablet by mouth in the morning. [facility] aspirin 81 mg chewable tablet 04-16 00:00: 00 Yes [id number] 81mg Take 1 tablet by mouth in the morning. [facility] aspirin 81 mg chewable tablet 04-16 00:00: 00 Yes [id number] 81mg Take 1 tablet by mouth in the morning. [facility] aspirin 81 mg chewable tablet 04-16 00:00: 00 Yes [id number] 81mg Take 1 tablet by mouth in the morning. [facility] aspirin 81 mg chewable tablet 04-16 00:00: 00 Yes [id number] 81mg Take 1 tablet by mouth in the morning. [facility] aspirin 81 mg chewable tablet 04-16 00:00: 00 Yes [id number] 81mg Take 1 tablet by mouth in the morning. [facility] MULTIVITAMI N ORAL 04-15 17:39: 14 Yes 1{tbl} Take 1 Tab by mouth daily. [facility] omega-3 fatty acids-vitam in E (FISH OIL) 1,000 mg capsule 04-15 17:39: 14 Yes 1g Take 1 g by mouth daily. [facility] loratadine (CLARITIN LIQUI-GEL) 10 mg capsule 04-15 17:39: 14 Yes Take by mouth daily. [facility] ondansetron (ZOFRAN) 4 mg tablet 04-15 17:39: 14 Yes 4mg Take 4 mg by mouth every 8 (eight) hours as needed. [facility] pantoprazol e (PROTONIX) 40 mg EC tablet 04-15 17:39: 14 Yes 40mg Take 40 mg by mouth daily. [facility] lisinopril- hydrochloro thiazide 20-12.5 mg per tablet 04-15 15:58: 35 04-15 00:00 :00 No 1{tbl} Take 1 tablet by mouth daily. [facility] levetiracet am (KEPPRA ORAL) 04-15 15:58: 35 04-15 00:00 :00 No Take by mouth. [facility] acetaminoph en-codeine (TYLENOL #4) 300-60 mg tablet 1 tablet 04-15 05:39: 23 04-15 14:39 :42 No 1{tbl} 1 tablet, Oral, Q6HPRN, Starting on Thu04/15/22 at 0039, Until Thu04/15/22 at 0939, Routine, Pain (scale 4-6), Pain (scale 1-3) [facility] LORazepam (ATIVAN) tablet 2 mg 04-15 03:30: 00 04-15 10:27 :00 No 2mg 2 mg, Oral, ONCE, 1 dose, On Thu04/14/22 at 2230, Routine [facility] levETIRAcet am (KEPPRA) tablet 1,000 mg 04-15 02:45: 00 Yes 1000mg 1,000 mg, Oral, BID, First dose (after last modificati on) on Thu04/14/22 at 2145, Until Discontinu ed, Routine [facility] ketorolac (TORADOL) injection 15 mg 04-15 02:13: 00 04-15 02:22 :00 No 15mg 15 mg, Slow IV Push, ONCE, 1 dose, On Thu04/14/22 at 2115, Routine [facility] levETIRAcet am 1,000 mg tablet 04-15 00:00: 00 Yes [id number] 1000mg Take 1 tablet by mouth in the morning and 1 tablet in the evening. [facility] atorvastati n 40 mg tablet 04-15 00:00: 00 Yes [id number] 40mg Take 1 tablet by mouth at bedtime. [facility] atorvastati n 40 mg tablet 04-15 00:00: 00 Yes [id number] 40mg Take 1 tablet by mouth at bedtime. [facility] atorvastati n 40 mg tablet 04-15 00:00: 00 Yes [id number] 40mg Take 1 tablet by mouth at bedtime. [facility] atorvastati n 40 mg tablet 04-15 00:00: 00 Yes [id number] 40mg Take 1 tablet by mouth at bedtime. [facility] atorvastati n 40 mg tablet 04-15 00:00: 00 Yes [id number] 40mg Take 1 tablet by mouth at bedtime. [facility] atorvastati n 40 mg tablet 04-15 00:00: 00 Yes [id number] 40mg Take 1 tablet by mouth at bedtime. [facility] atorvastati n 40 mg tablet 04-15 00:00: 00 Yes [id number] 40mg Take 1 tablet by mouth at bedtime. [facility] atorvastati n 40 mg tablet 04-15 00:00: 00 Yes [id number] 40mg Take 1 tablet by mouth at bedtime. [facility] levETIRAcet am 1,000 mg tablet 04-15 00:00: 00 05-08 00:00 :00 No [id number] 1000mg Take 1 tablet by mouth in the morning and 1 tablet in the evening. [facility] lidocaine 5 % (700 mg/patch) patch 04-15 00:00: 00 04-23 04:59 :00 No [id number] 1{patch } Apply 1 Patch to area(s) in the morning for 7 days. [facility] HYDROcodone -acetaminop hen 5-325 mg tablet 04-15 00:00: 00 04-21 04:59 :00 No [id number] 1{tbl} Take 1 tablet by mouth every 6 (six) hours as needed for Pain (scale 7-10) for up to 5 days. Indication s: acute pain [facility] lidocaine (LIDODERM) 5 % (700 mg/patch) patch 1 Patch 04-14 21:45: 29 Yes 1{patch } 1 Patch, Topical, Administer over 12 Hours, [id number], Starting on Thu04/14/22 at 1645, Until Discontinu ed, Routine, Localized pain [facility] aspirin chewable tablet 81 mg 04-14 21:30: 00 Yes 81mg 81 mg, Oral, DAILY, First dose on Thu04/14/22 at 1630, Until Discontinu ed, Routine [facility] acetaminoph en (TYLENOL) tablet 650 mg 04-14 21:29: 25 Yes 650mg 650 mg, Oral, Q6HPRN, Starting on Thu04/14/22 at 1629, Until Discontinu ed, Routine, Pain (scale 1-3), Temp > 38.5 C, Temp > 37.5 C [facility] HYDROcodone -acetaminop hen (NORCO) 10-325 mg tablet 1 tablet 04-14 21:29: 02 04-15 05:39 :41 No 1{tbl} 1 tablet, Oral, Q6HPRN, Starting on Thu04/14/22 at 1629, Until Thu04/15/22 at 0039, Routine, Pain (scale 7-10), Pain (scale 4-6) [facility] sulfur hexafluorid e microsphr (LUMASON) injection 5 mL 04-14 16:45: 00 04-14 16:45 :00 No [id number] 5mL 5 mL, Intravenou s, ONCE, 1 dose, On Thu04/14/22 at 1145, Routine
mathematics faculty member approving Restricted medication : [employer] [facility] clopidogreL (PLAVIX) 75 mg tablet 75 mg 04-14 14:00: 00 Yes 75mg 75 mg, Oral, DAILY, First dose on Thu04/14/22 at 0900, Until Discontinu ed, [facility] tablet 40 mg 04-14 14:00: 00 Yes 40mg 40 mg, Oral, DAILY, First dose on Thu04/14/22 at 0900, Until Discontinu ed, Routine [facility] atorvastati n (LIPITOR) tablet 40 mg 04-14 02:00: 00 Yes 40mg 40 mg, Oral, QHS, First dose on Thu04/13/22 at 2100, Until Discontinu ed, Routine [facility] LORazepam (ATIVAN) tablet 1 mg 04-14 01:30: 00 04-14 01:45 :00 No 1mg 1 mg, Oral, ONCE, 1 dose, On Thu04/13/22 at 2030, Routine [facility] methocarbam oL (ROBAXIN) tablet 500 mg 04-14 01:00: 00 Yes 500mg 500 mg, Oral, QID, First dose on Thu04/13/22 at 2000, Until Discontinu ed, Routine [facility] heparin (porcine) injection 5,000 Units 04-14 01:00: 00 Yes 5000U 5,000 Units, Subcutaneo us, Q12H, First dose on Thu04/13/22 at 2000, Until Discontinu ed, Routine [facility] acetaminoph en (TYLENOL) tablet 650 mg 04-14 00:23: 25 04-14 21:29 :42 No 650mg 650 mg, Oral, Q6HPRN, Starting on Thu04/13/22 at 1923, Until Thu04/14/22 at 1629, Routine, Pain (scale 1-3), Pain (scale 4-6), Temp > 38.5 C, Temp > 37.5 C [facility] lidocaine (LIDODERM) 5 % (700 mg/patch) patch 1 Patch 04-14 00:22: 00 04-14 13:51 :00 No 1{patch } 1 Patch, Topical, Administer over 12 Hours, ONCE, 1 dose, On Thu04/13/22 at 1930, Routine [facility] FENTanyl PF (SUBLIMAZE (PF)) injection 50 mcg 04-13 20:30: 00 04-13 19:22 :00 No 50ug 50 mcg, Slow IV Push, ONCE, 1 dose, On Thu04/13/22 at 1530, Routine [facility] aspirin chewable tablet 650 mg 04-13 20:15: 00 04-13 20:15 :00 No 650mg 650 mg, Oral, ONCE, 1 dose, On Thu04/13/22 at 1515, Routine [facility] clopidogreL (PLAVIX) 300 mg tablet 300 mg 04-13 20:00: 00 04-13 19:15 :00 No 300mg 300 mg, Oral, ONCE, 1 dose, On Thu04/13/22 at 1500, Routine [facility] ondansetron (ZOFRAN (PF)) injection 4 mg 04-13 19:30: 00 04-13 19:22 :00 No 4mg 4 mg, Slow IV Push, ONCE, 1 dose, On Thu04/13/22 at 1430, MICHAEL [facility] iopamidol (ISOVUE 370-500 mL) injection 100 mL 04-13 18:31: 00 04-13 18:32 :00 No [id number] 100mL 100 mL, Intravenou s, ONCE, 1 dose, On Thu04/13/22 at 1345, Routine [facility] NaCl 0.9% (NS) injection 5 mL 04-13 18:14: 11 Yes 5mL 5 mL, Slow IV Push, PRN - SEE INSTRUCTIO NS, Starting on Thu04/13/22 at 1314, Until Discontinu ed, 10 mL [facility] aspirin chewable tablet 324 mg 08 14:00: 00 Yes 324mg 324 mg, Oral, DAILY, First dose on 11/24/21 at 0900, Until Discontinu ed, Routine [facility] metoclopram iker HCl (REGLAN) injection 10 mg 11-23 22:30: 00 11-23 21:24 :00 No 10mg 10 mg, Slow IV Push, ONCE, 1 dose, On 11/23/21 at 1730, [facility] acetaminoph en (TYLENOL) tablet 1,000 mg 11-23 22:15: 00 11-23 21:09 :00 No 1000mg 1,000 mg, Oral, ONCE, 1 dose, On 11/23/21 at 1715, [facility] ondansetron (ZOFRAN (PF)) injection 4 mg 11-23 21:45: 00 11-23 20:30 :00 No 4mg 4 mg, Slow IV Push, ONCE, 1 dose, On 11/23/21 at 1645, [facility] NaCl 0.9% (NS) bolus infusion 1,000 mL 11-23 21:30: 00 11-23 21:56 :00 No 1000mL at 999 mL/hr, 1,000 mL, IV Infusion, ONCE, 1 dose, On 11/23/21 at 1630, [facility] LORazepam (ATIVAN) injection 4 mg 11-23 21:30: 00 11-23 20:23 :00 No 4mg 4 mg, Slow IV Push, ONCE, 1 dose, On 11/23/21 at 1630, STAT [facility] levETIRAcet am (KEPPRA) in NACL (ISO-OS) 1,500 mg/100 mL RTU 11-23 21:30: 00 11-23 20:47 :00 No 1500mg 1,500 mg, IV Piggyback, ONCE, 1 dose, On 11/23/21 at 1630, Administer over 15 Minutes, 100 mL [facility] Dose Unknown 4-08 00:00: 00 No Dose Unknown 4-08 00:00: 00 No Prozac 20 mg capsule 2022-0 3-21 00:00: 00 No 1mg Prozac 20 [...] 2- 00:00: 00 No 1mg Dose Unknown 1-1 2-30 00:00: 00 No Wellbutrin XL 150 mg 24 hr tablet, extended release 2020-1 2- 00:00: 00 No 1mg Dose Unknown 2020-1 2- 00:00: 00 No ibuprofen 800 mg tablet 2020-1 2- 00:00: 00 No 1mg ibuprofen 800 mg tablet 2020-07 2- 00:00: 00 No 1mg levetiracet am [...] y
Durat ion of Therapy: 7 days [facility] levoFLOXaci n (LEVAQUIN) tablet 500 mg 03-17 04:00: 00 03-17 04:22 :00 No 500mg 500 mg, Oral, ONCE, 1 dose, 03/16/21 at 2315, MICHAEL
Re ason for Anti-Infec tive: Documented Infection< br>Documen sherice Infection Site: Respirator y
Durat ion of Therapy: 7 days [facility] morpHINE injection 4 mg 03-17 01:58: 00 03-17 02:13 :00 No 4mg 4 mg, Slow IV Push, ONCE, 1 dose, 03/16/21 at 2100, STAT [facility] ondansetron (ZOFRAN (PF)) injection 4 mg 03-17 01:58: 00 03-17 02:12 :00 No 4mg 4 mg, Slow IV Push, ONCE, 1 dose, 03/16/21 at 2100, MICHAEL [facility] morpHINE injection 4 mg 03-17 01:58: 00 03-17 02:13 :00 No 4mg 4 mg, Slow IV Push, ONCE, 1 dose, 03/16/21 at 2100, [facility] ondansetron (ZOFRAN (PF)) injection 4 mg 03-17 01:58: 00 03-17 02:12 :00 No 4mg 4 mg, Slow IV Push, ONCE, 1 dose, 03/16/21 at 2100, [facility] ipratropium -albuteroL (DUONEB) 0.5 mg-3 mg(2.5 mg base)/3 mL nebulizer solution 3 mL 03-17 01:57: 00 03-17 02:15 :00 No 3mL 3 mL, Inhalation , ONCE, 1 dose, 03/16/21 at 2100, [facility] NaCl 0.9% (NS) IV infusion 1,000 mL 03-17 01:57: 00 03-17 03:07 :00 No 1000mL at 999 mL/hr, Intravenou s, ONCE, 1 dose, 03/16/21 at 2100, [facility] methylpredn isolone sod succ (SOLU-MEDRO L) injection 125 mg 03-17 01:57: 00 03-17 02:11 :00 No 125mg 125 mg, Slow IV Push, ONCE, 1 dose, 03/16/21 at 2100, [facility] ipratropium -albuteroL (DUONEB) 0.5 mg-3 mg(2.5 mg base)/3 mL nebulizer solution 3 mL 03-17 01:57: 00 03-17 02:15 :00 No 3mL 3 mL, Inhalation , ONCE, 1 dose, 03/16/21 at 2100, [facility] ipratropium -albuteroL (DUONEB) 0.5 mg-3 mg(2.5 mg base)/3 mL nebulizer solution 3 mL 03-17 01:57: 00 03-17 02:15 :00 No 3mL 3 mL, Inhalation , ONCE, 1 dose, 03/16/21 at 2100, [facility] NaCl 0.9% (NS) IV infusion 1,000 mL 03-17 01:57: 00 03-17 03:07 :00 No 1000mL at 999 mL/hr, Intravenou s, ONCE, 1 dose, 03/16/21 at 2100, MICHAEL [facility] methylpredn isolone sod succ (SOLU-MEDRO L) injection 125 mg 03-17 01:57: 00 03-17 02:11 :00 No 125mg 125 mg, Slow IV Push, ONCE, 1 dose, 03/16/21 at 2100, STAT [facility] ipratropium -albuteroL (DUONEB) 0.5 mg-3 mg(2.5 mg base)/3 mL nebulizer solution 3 mL 03-17 01:57: 00 03-17 02:15 :00 No 3mL 3 mL, Inhalation , ONCE, 1 dose, 03/16/21 at 2100, MICHAEL [facility] levoFLOXaci n 500 mg tablet 03-17 00:00: 00 03-24 04:59 :00 No [id number] 500mg Take 1 tablet by mouth daily for 6 days. [facility] levoFLOXaci n 500 mg tablet 03-17 00:00: 00 03-24 04:59 :00 No [id number] 500mg Take 1 tablet by mouth daily for 6 days. [facility] levoFLOXaci n 500 mg tablet 03-17 00:00: 00 03-24 04:59 :00 No [id number] 500mg Take 1 tablet by mouth daily for 6 days. [facility] levoFLOXaci n 500 mg tablet 03-17 00:00: 00 03-24 04:59 :00 No [id number] 500mg Take 1 tablet by mouth daily for 6 days. [facility] predniSONE 10 mg tablet 03-17 00:00: 00 03-22 04:59 :00 No [id number] 30mg Take 3 tablets by mouth daily for 4 days. [facility] predniSONE 10 mg tablet 03-17 00:00: 00 03-22 04:59 :00 No [id number] 30mg Take 3 tablets by mouth daily for 4 days. [facility] predniSONE 10 mg tablet 03-17 00:00: 00 03-22 04:59 :00 No [id number] 30mg Take 3 tablets by mouth daily for 4 days. [facility] predniSONE 10 mg tablet 03-17 00:00: 00 03-22 04:59 :00 No [id number] 30mg Take 3 tablets by mouth daily for 4 days. [facility] albuterol (VENTOLIN) inhaler 4 Puff 03-15 01:45: 00 03-15 00:44 :00 No [id number] 4{puff} 4 Puff, Inhalation , ONCE, 1 dose, Arpita 03/14/21 at 2044, Routine [facility] dexamethaso ne (DECADRON) injection 10 mg 03-15 01:45: 00 03-15 00:45 :00 No [id number] 10mg 10 mg, Intramuscu lar, ONCE, 1 dose, Arpita 03/14/21 at 2044, Routine [facility] albuterol 2.5 mg /3 mL (0.083 %) nebulizer solution 03-15 00:00: 00 Yes [id number] 2.5mg Inhale 3 mL every 4 (four) hours as needed for Wheezing or Shortness of Breath. [facility] albuterol 2.5 mg /3 mL (0.083 %) nebulizer solution 03-15 00:00: 00 Yes [id number] 2.5mg Inhale 3 mL every 4 (four) hours as needed for Wheezing or Shortness of Breath. [facility] albuterol 2.5 mg /3 mL (0.083 %) nebulizer solution 03-15 00:00: 00 Yes [id number] 2.5mg Inhale 3 mL every 4 (four) hours as needed for Wheezing or Shortness of Breath. [facility] albuterol 2.5 mg /3 mL (0.083 %) nebulizer solution 03-15 00:00: 00 Yes [id number] 2.5mg Inhale 3 mL every 4 (four) hours as needed for Wheezing or Shortness of Breath. [facility] albuterol 2.5 mg /3 mL (0.083 %) nebulizer solution 03-15 00:00: 00 Yes [id number] 2.5mg Inhale 3 mL every 4 (four) hours as needed for Wheezing or Shortness of Breath. [facility] albuterol 2.5 mg /3 mL (0.083 %) nebulizer solution 03-15 00:00: 00 Yes [id number] 2.5mg Inhale 3 mL every 4 (four) hours as needed for Wheezing or Shortness of Breath. [facility] albuterol 2.5 mg /3 mL (0.083 %) nebulizer solution 03-15 00:00: 00 Yes [id number] 2.5mg Inhale 3 mL every 4 (four) hours as needed for Wheezing or Shortness of Breath. [facility] albuterol 2.5 mg /3 mL (0.083 %) nebulizer solution 03-15 00:00: 00 Yes [id number] 2.5mg Inhale 3 mL every 4 (four) hours as needed for Wheezing or Shortness of Breath. [facility] albuterol 2.5 mg /3 mL (0.083 %) nebulizer solution 03-15 00:00: 00 Yes [id number] 2.5mg Inhale 3 mL every 4 (four) hours as needed for Wheezing or Shortness of Breath. [facility] albuterol 2.5 mg /3 mL (0.083 %) nebulizer solution 03-15 00:00: 00 Yes [id number] 2.5mg Inhale 3 mL every 4 (four) hours as needed for Wheezing or Shortness of Breath. [facility] albuterol 2.5 mg /3 mL (0.083 %) nebulizer solution 03-15 00:00: 00 Yes [id number] 2.5mg Inhale 3 mL every 4 (four) hours as needed for Wheezing or Shortness of Breath. [facility] albuterol 2.5 mg /3 mL (0.083 %) nebulizer solution 03-15 00:00: 00 Yes [id number] 2.5mg Inhale 3 mL every 4 (four) hours as needed for Wheezing or Shortness of Breath. [facility] albuterol 2.5 mg /3 mL (0.083 %) nebulizer solution 03-15 00:00: 00 Yes [id number] 2.5mg Inhale 3 mL every 4 (four) hours as needed for Wheezing or Shortness of Breath. [facility] albuterol 2.5 mg /3 mL (0.083 %) nebulizer solution 03-15 00:00: 00 Yes [id number] 2.5mg Inhale 3 mL every 4 (four) hours as needed for Wheezing or Shortness of Breath. [facility] [facility] ity [facility] albuterol 2.5 mg /3 mL (0.083 %) nebulizer solution 03-15 00:00: 00 Yes [id number] 2.5mg Inhale 3 mL every 4 (four) hours as needed for Wheezing or Shortness of Breath. [facility] ity [facility] albuterol 2.5 mg /3 mL (0.083 %) nebulizer solution 03-15 00:00: 00 Yes [id number] 2.5mg Inhale 3 mL every 4 (four) hours as needed for Wheezing or Shortness of Breath. [facility] it[facility] albuterol 2.5 mg /3 mL (0.083 %) nebulizer solution 03-15 00:00: 00 Yes [id number] 2.5mg Inhale 3 mL every 4 (four) hours as needed for Wheezing or Shortness of Breath. [facility] ity [facility] albuterol 2.5 mg /3 mL (0.083 %) nebulizer solution 03-15 00:00: 00 Yes [id number] 2.5mg Inhale 3 mL every 4 (four) hours as needed for Wheezing or Shortness of Breath. [facility] levETIRAcet am (KEPPRA) in NACL (ISO-OS) 1,000 mg/100 mL RTU 02-19 20:15: 00 02-19 19:30 :00 No 1000mg 1,000 mg, IV Infusion, ONCE, 1 dose, 02/19/21 at 1515, Administer over 15 Minutes, 100 mL [facility] levetiracet am (KEPPRA ORAL) 02-19 19:45: 33 Yes Take by mouth. [facility] levetiracet am (KEPPRA ORAL) 02-19 19:45: 33 Yes Take by mouth. [facility] levetiracet am (KEPPRA ORAL) 02-19 19:45: 33 Yes Take by mouth. [facility] levetiracet am (KEPPRA ORAL) 02-19 19:45: 33 Yes Take by mouth. [facility] levetiracet am (KEPPRA ORAL) 02-19 19:45: 33 Yes Take by mouth. [facility] levetiracet am (KEPPRA ORAL) 02-19 19:45: 33 Yes Take by mouth. [facility] LISINOPRIL- HYDROCHLORO THIAZIDE ORAL 02-19 19:41: 15 02-19 00:00 :00 No Take by mouth. [facility] dicyclomine (BENTYL) injection 20 mg 02-19 19:15: 00 02-19 19:04 :00 No 20mg 20 mg, Intramuscu lar, ONCE, 1 dose, 02/19/21 at 1415, Routine [facility] proMETHazin e (PHENERGAN) 25 mg in NaCl 0.9% (NS) 50 mL piggyback 02-19 19:15: 00 02-19 19:03 :00 No 25mg 25 mg, IV Piggyback, ONCE, 1 dose, 02/19/21 at 1415, 50 mL [facility] morpHINE injection 4 mg 02-19 17:15: 00 02-19 17:05 :00 No 4mg 4 mg, Slow IV Push, ONCE, 1 dose, 02/19/21 at 1215, STAT [facility] NaCl 0.9% (NS) bolus infusion 1,000 mL 02-19 17:15: 00 02-19 19:04 :00 No 1000mL at 999 mL/hr, 1,000 mL, IV Infusion, ONCE, 1 dose, 02/19/21 at 1215, STAT [facility] ondansetron (ZOFRAN (PF)) injection 4 mg 02-19 17:00: 00 02-19 15:59 :00 No 4mg 4 mg, Slow IV Push, ONCE, 1 dose, 02/19/21 at 1200, MICHAEL [facility] iopamidol (ISOVUE 370-500 mL) injection 100 mL 02-19 16:35: 00 02-19 16:45 :00 No [id number] 100mL 100 mL, Intravenou s, ONCE, 1 dose, 02/19/21 at 1145, Routine [facility] levetiracet am (KEPPRA ORAL) 02-19 14:45: 33 Yes Take by mouth. [facility] levetiracet am (KEPPRA ORAL) 02-19 14:45: 33 Yes Take by mouth. [facility] levetiracet am (KEPPRA ORAL) 02-19 14:45: 33 Yes Take by mouth. [facility] levetiracet am (KEPPRA ORAL) 02-19 14:45: 33 Yes Take by mouth. [facility] levetiracet am (KEPPRA ORAL) 02-19 14:45: 33 Yes Take by mouth. [facility] proMETHazin e 25 mg tablet 02-19 00:00: 00 Yes [id number] 25mg Take 1 tablet by mouth every 6 (six) hours as needed for Nausea and Vomiting (N/V). [facility] dicyclomine 20 mg tablet 02-19 00:00: 00 Yes [id number] 20mg Take 1 tablet by mouth 4 (four) times daily as needed for Abdominal pain. [facility] proMETHazin e 25 mg tablet 02-19 00:00: 00 Yes [id number] 25mg Take 1 tablet by mouth every 6 (six) hours as needed for Nausea and Vomiting (N/V). [facility] dicyclomine 20 mg tablet 02-19 00:00: 00 Yes [id number] 20mg Take 1 tablet by mouth 4 (four) times daily as needed for Abdominal pain. [facility] proMETHazin e 25 mg tablet 02-19 00:00: 00 Yes [id number] 25mg Take 1 tablet by mouth every 6 (six) hours as needed for Nausea and Vomiting (N/V). [facility] dicyclomine 20 mg tablet 02-19 00:00: 00 Yes [id number] 20mg Take 1 tablet by mouth 4 (four) times daily as needed for Abdominal pain. [facility] proMETHazin e 25 mg tablet 02-19 00:00: 00 Yes [id number] 25mg Take 1 tablet by mouth every 6 (six) hours as needed for Nausea and Vomiting (N/V). [facility] dicyclomine 20 mg tablet 02-19 00:00: 00 Yes [id number] 20mg Take 1 tablet by mouth 4 (four) times daily as needed for Abdominal pain. [facility] proMETHazin e 25 mg tablet 02-19 00:00: 00 Yes [id number] 25mg Take 1 tablet by mouth every 6 (six) hours as needed for Nausea and Vomiting (N/V). [facility] dicyclomine 20 mg tablet 0 02-19 00:00: 00 Yes [id number] 20mg Take 1 tablet by mouth 4 (four) times daily as needed for Abdominal pain. [facility] proMETHazin e 25 mg tablet 02-19 00:00: 00 Yes [id number] 25mg Take 1 tablet by mouth every 6 (six) hours as needed for Nausea and Vomiting (N/V). [facility] dicyclomine 20 mg tablet 0 02-19 00:00: 00 Yes [id number] 20mg Take 1 tablet by mouth 4 (four) times daily as needed for Abdominal pain. [facility] proMETHazin e 25 mg tablet 02-19 00:00: 00 Yes [id number] 25mg Take 1 tablet by mouth every 6 (six) hours as needed for Nausea and Vomiting (N/V). [facility] dicyclomine 20 mg tablet 02-19 00:00: 00 Yes [id number] 20mg Take 1 tablet by mouth 4 (four) times daily as needed for Abdominal pain. [facility] proMETHazin e 25 mg tablet 02-19 00:00: 00 Yes [id number] 25mg Take 1 tablet by mouth every 6 (six) hours as needed for Nausea and Vomiting (N/V). [facility] dicyclomine 20 mg tablet 02-19 00:00: 00 Yes [id number] 20mg Take 1 tablet by mouth 4 (four) times daily as needed for Abdominal pain. [facility] proMETHazin e 25 mg tablet 0 02-19 00:00: 00 Yes [id number] 25mg Take 1 tablet by mouth every 6 (six) hours as needed for Nausea and Vomiting (N/V). [facility] dicyclomine 20 mg tablet 0 02-19 00:00: 00 Yes [id number] 20mg Take 1 tablet by mouth 4 (four) times daily as needed for Abdominal pain. [facility] proMETHazin e 25 mg tablet 02-19 00:00: 00 Yes [id number] 25mg Take 1 tablet by mouth every 6 (six) hours as needed for Nausea and Vomiting (N/V). [facility] dicyclomine 20 mg tablet 0 02-19 00:00: 00 Yes [id number] 20mg Take 1 tablet by mouth 4 (four) times daily as needed for Abdominal pain. [facility] proMETHazin e 25 mg tablet 0 02-19 00:00: 00 Yes [id number] 25mg Take 1 tablet by mouth every 6 (six) hours as needed for Nausea and Vomiting (N/V). [facility] dicyclomine 20 mg tablet 0 02-19 00:00: 00 Yes [id number] 20mg Take 1 tablet by mouth 4 (four) times daily as needed for Abdominal pain. [facility] proMETHazin e 25 mg tablet 02-19 00:00: 00 Yes [id number] 25mg Take 1 tablet by mouth every 6 (six) hours as needed for Nausea and Vomiting (N/V). [facility] dicyclomine 20 mg tablet 02-19 00:00: 00 Yes [id number] 20mg Take 1 tablet by mouth 4 (four) times daily as needed for Abdominal pain. [facility] proMETHazin e 25 mg tablet 02-19 00:00: 00 Yes [id number] 25mg Take 1 tablet by mouth every 6 (six) hours as needed for Nausea and Vomiting (N/V). [facility] dicyclomine 20 mg tablet 0 02-19 00:00: 00 Yes [id number] 20mg Take 1 tablet by mouth 4 (four) times daily as needed for Abdominal pain. [facility] proMETHazin e 25 mg tablet 0 02-19 00:00: 00 Yes [id number] 25mg Take 1 tablet by mouth every 6 (six) hours as needed for Nausea and Vomiting (N/V). [facility] dicyclomine 20 mg tablet 0 02-19 00:00: 00 Yes [id number] 20mg Take 1 tablet by mouth 4 (four) times daily as needed for Abdominal pain. [facility] proMETHazin e 25 mg tablet 0 02-19 00:00: 00 Yes [id number] 25mg Take 1 tablet by mouth every 6 (six) hours as needed for Nausea and Vomiting (N/V). [facility] dicyclomine 20 mg tablet 0 8 00:00: 00 Yes [id number] 20mg Take 1 tablet by mouth 4 (four) times daily as needed for Abdominal pain. [facility] proMETHazin e 25 mg tablet 0 8 00:00: 00 Yes [id number] 25mg Take 1 tablet by mouth every 6 (six) hours as needed for Nausea and Vomiting (N/V). [facility] dicyclomine 20 mg tablet 02-19 00:00: 00 Yes [id number] 20mg Take 1 tablet by mouth 4 (four) times daily as needed for Abdominal pain. [facility] proMETHazin e 25 mg tablet 02-19 00:00: 00 Yes [id number] 25mg Take 1 tablet by mouth every 6 (six) hours as needed for Nausea and Vomiting (N/V). [facility] dicyclomine 20 mg tablet 02-19 00:00: 00 Yes [id number] 20mg Take 1 tablet by mouth 4 (four) times daily as needed for Abdominal pain. [facility] proMETHazin e 25 mg tablet 02-19 00:00: 00 Yes [id number] 25mg Take 1 tablet by mouth every 6 (six) hours as needed for Nausea and Vomiting (N/V). [facility] dicyclomine 20 mg tablet 0 02-19 00:00: 00 Yes [id number] 20mg Take 1 tablet by mouth 4 (four) times daily as needed for Abdominal pain. [facility] proMETHazin e 25 mg tablet 0 8- 00:00: 00 Yes [id number] 25mg Take 1 tablet by mouth every 6 (six) hours as needed for Nausea and Vomiting (N/V). [facility] dicyclomine 20 mg tablet 2020-0 8- 00:00: 00 Yes [id number] 20mg Take 1 tablet by mouth 4 (four) times daily as needed for Abdominal pain. [facility] ZONISAMIDE 100 mg capsule 11-15 00:00: 00 Yes TAKE 1 CAPSULE BY MOUTH TWICE A DAY [facility] ZONISAMIDE 100 mg capsule 11-15 00:00: 00 02-19 00:00 :00 No TAKE 1 CAPSULE BY MOUTH TWICE A DAY [facility] ondansetron (ZOFRAN) 4 mg tablet 02-09 20:05: 01 Yes 4mg Take 4 mg by mouth every 8 (eight) hours as needed. [facility] pantoprazol e (PROTONIX) 40 mg EC tablet 02-09 20:05: 01 Yes 40mg Take 40 mg by mouth daily. [facility] ondansetron (ZOFRAN) 4 mg tablet 02-09 20:05: 01 Yes 4mg Take 4 mg by mouth every 8 (eight) hours as needed. [facility] pantoprazol e (PROTONIX) 40 mg EC tablet 02-09 20:05: 01 Yes 40mg Take 40 mg by mouth daily. [facility] LISINOPRIL- HYDROCHLORO THIAZIDE ORAL 02-09 20:05: 01 Yes Take by mouth. [facility] ondansetron (ZOFRAN) 4 mg tablet 02-09 20:05: 01 Yes 4mg Take 4 mg by mouth every 8 (eight) hours as needed. [facility] pantoprazol e (PROTONIX) 40 mg EC tablet 02-09 20:05: 01 Yes 40mg Take 40 mg by mouth daily. [facility] ondansetron (ZOFRAN) 4 mg tablet 02-09 20:05: 01 Yes 4mg Take 4 mg by mouth every 8 (eight) hours as needed. [facility] pantoprazol e (PROTONIX) 40 mg EC tablet 02-09 20:05: 01 Yes 40mg Take 40 mg by mouth daily. [facility] ondansetron (ZOFRAN) 4 mg tablet 02-09 20:05: 01 Yes 4mg Take 4 mg by mouth every 8 (eight) hours as needed. [facility] pantoprazol e (PROTONIX) 40 mg EC tablet 02-09 20:05: 01 Yes 40mg Take 40 mg by mouth daily. [facility] ondansetron (ZOFRAN) 4 mg tablet 02-09 20:05: 01 Yes 4mg Take 4 mg by mouth every 8 (eight) hours as needed. [facility] pantoprazol e (PROTONIX) 40 mg EC tablet 02-09 20:05: 01 Yes 40mg Take 40 mg by mouth daily. [facility] ondansetron (ZOFRAN) 4 mg tablet 02-09 20:05: 01 Yes 4mg Take 4 mg by mouth every 8 (eight) hours as needed. [facility] pantoprazol e (PROTONIX) 40 mg EC tablet 02-09 20:05: 01 Yes 40mg Take 40 mg by mouth daily. [facility] lisinopril- hydrochloro thiazide 20-12.5 mg per tablet 02-09 20:03: 30 Yes 1{tbl} Take 1 tablet by mouth daily. [facility] lisinopril- hydrochloro thiazide 20-12.5 mg per tablet 02-09 20:03: 30 Yes 1{tbl} Take 1 tablet by mouth daily. [facility] lisinopril- hydrochloro thiazide 20-12.5 mg per tablet 02-09 20:03: 30 Yes 1{tbl} Take 1 tablet by mouth daily. [facility] lisinopril- hydrochloro thiazide 20-12.5 mg per tablet 02-09 20:03: 30 Yes 1{tbl} Take 1 tablet by mouth daily. [facility] lisinopril- hydrochloro thiazide 20-12.5 mg per tablet 02-09 20:03: 30 Yes 1{tbl} Take 1 tablet by mouth daily. [facility] lisinopril- hydrochloro thiazide 20-12.5 mg per tablet 02-09 20:03: 30 Yes 1{tbl} Take 1 tablet by mouth daily. [facility] lisinopril- hydrochloro thiazide 20-12.5 mg per tablet 02-09 20:03: 30 Yes 1{tbl} Take 1 tablet by mouth daily. [facility] omega-3 fatty acids-vitam in E (FISH OIL) 1,000 mg capsule 02-09 19:59: 52 Yes 1g Take 1 g by mouth daily. [facility] omega-3 fatty acids-vitam in E (FISH OIL) 1,000 mg capsule 02-09 19:59: 52 Yes 1g Take 1 g by mouth daily. [facility] omega-3 fatty acids-vitam in E (FISH OIL) 1,000 mg capsule 02-09 19:59: 52 Yes 1g Take 1 g by mouth daily. [facility] omega-3 fatty acids-vitam in E (FISH OIL) 1,000 mg capsule 02-09 19:59: 52 Yes 1g Take 1 g by mouth daily. [facility] omega-3 fatty acids-vitam in E (FISH OIL) 1,000 mg capsule 02-09 19:59: 52 Yes 1g Take 1 g by mouth daily. [facility] omega-3 fatty acids-vitam in E (FISH OIL) 1,000 mg capsule 02-09 19:59: 52 Yes 1g Take 1 g by mouth daily. [facility] omega-3 fatty acids-vitam in E (FISH OIL) 1,000 mg capsule 02-09 19:59: 52 Yes 1g Take 1 g by mouth daily. [facility] MULTIVITAMI N ORAL 02-09 19:58: 14 Yes 1{tbl} Take 1 Tab by mouth daily. [facility] loratadine (CLARITIN LIQUI-GEL) 10 mg capsule 02-09 19:58: 14 Yes Take by mouth daily. [facility] MULTIVITAMI N ORAL 02-09 19:58: 14 Yes 1{tbl} Take 1 Tab by mouth daily. [facility] loratadine (CLARITIN LIQUI-GEL) 10 mg capsule 02-09 19:58: 14 Yes Take by mouth daily. [facility] MULTIVITAMI N ORAL 02-09 19:58: 14 Yes 1{tbl} Take 1 Tab by mouth daily. [facility] loratadine (CLARITIN LIQUI-GEL) 10 mg capsule 02-09 19:58: 14 Yes Take by mouth daily. [facility] MULTIVITAMI N ORAL 02-09 19:58: 14 Yes 1{tbl} Take 1 Tab by mouth daily. [facility] loratadine (CLARITIN LIQUI-GEL) 10 mg capsule 02-09 19:58: 14 Yes Take by mouth daily. [facility] MULTIVITAMI N ORAL 02-09 19:58: 14 Yes 1{tbl} Take 1 Tab by mouth daily. [facility] loratadine (CLARITIN LIQUI-GEL) 10 mg capsule 02-09 19:58: 14 Yes Take by mouth daily. [facility] MULTIVITAMI N ORAL 02-09 19:58: 14 Yes 1{tbl} Take 1 Tab by mouth daily. [facility] loratadine (CLARITIN LIQUI-GEL) 10 mg capsule 02-09 19:58: 14 Yes Take by mouth daily. [facility] MULTIVITAMI N ORAL 02-09 19:58: 14 Yes 1{tbl} Take 1 Tab by mouth daily. [facility] loratadine (CLARITIN LIQUI-GEL) 10 mg capsule 02-09 19:58: 14 Yes Take by mouth daily. [facility] ondansetron (ZOFRAN) 4 mg tablet 02-09 15:05: 01 Yes 4mg Take 4 mg by mouth every 8 (eight) hours as needed. [facility] pantoprazol e (PROTONIX) 40 mg EC tablet 02-09 15:05: 01 Yes 40mg Take 40 mg by mouth daily. [facility] ondansetron (ZOFRAN) 4 mg tablet 02-09 15:05: 01 Yes 4mg Take 4 mg by mouth every 8 (eight) hours as needed. [facility] pantoprazol e (PROTONIX) 40 mg EC tablet 02-09 15:05: 01 Yes 40mg Take 40 mg by mouth daily. [facility] ondansetron (ZOFRAN) 4 mg tablet 02-09 15:05: 01 Yes 4mg Take 4 mg by mouth every 8 (eight) hours as needed. [facility] pantoprazol e (PROTONIX) 40 mg EC tablet 02-09 15:05: 01 Yes 40mg Take 40 mg by mouth daily. [facility] ondansetron (ZOFRAN) 4 mg tablet 02-09 15:05: 01 Yes 4mg Take 4 mg by mouth every 8 (eight) hours as needed. [facility] pantoprazol e (PROTONIX) 40 mg EC tablet 02-09 15:05: 01 Yes 40mg Take 40 mg by mouth daily. [facility] ondansetron (ZOFRAN) 4 mg tablet 02-09 15:05: 01 Yes 4mg Take 4 mg by mouth every 8 (eight) hours as needed. [facility] pantoprazol e (PROTONIX) 40 mg EC tablet 02-09 15:05: 01 Yes 40mg Take 40 mg by mouth daily. [facility] lisinopril- hydrochloro thiazide 20-12.5 mg per tablet 02-09 15:03: 30 Yes 1{tbl} Take 1 tablet by mouth daily. [facility] lisinopril- hydrochloro thiazide 20-12.5 mg per tablet 02-09 15:03: 30 Yes 1{tbl} Take 1 tablet by mouth daily. [facility] lisinopril- hydrochloro thiazide 20-12.5 mg per tablet 02-09 15:03: 30 Yes 1{tbl} Take 1 tablet by mouth daily. [facility] lisinopril- hydrochloro thiazide 20-12.5 mg per tablet 02-09 15:03: 30 Yes 1{tbl} Take 1 tablet by mouth daily. [facility] lisinopril- hydrochloro thiazide 20-12.5 mg per tablet 02-09 15:03: 30 Yes 1{tbl} Take 1 tablet by mouth daily. [facility] omega-3 fatty acids-vitam in E (FISH OIL) 1,000 mg capsule 02-09 14:59: 52 Yes 1g Take 1 g by mouth daily. [facility] omega-3 fatty acids-vitam in E (FISH OIL) 1,000 mg capsule 02-09 14:59: 52 Yes 1g Take 1 g by mouth daily. [facility] omega-3 fatty acids-vitam in E (FISH OIL) 1,000 mg capsule 02-09 14:59: 52 Yes 1g Take 1 g by mouth daily. [facility] omega-3 fatty acids-vitam in E (FISH OIL) 1,000 mg capsule 02-09 14:59: 52 Yes 1g Take 1 g by mouth daily. [facility] omega-3 fatty acids-vitam in E (FISH OIL) 1,000 mg capsule 02-09 14:59: 52 Yes 1g Take 1 g by mouth daily. [facility] MULTIVITAMI N ORAL 02-09 14:58: 14 Yes 1{tbl} Take 1 Tab by mouth daily. [facility] loratadine (CLARITIN LIQUI-GEL) 10 mg capsule 02-09 14:58: 14 Yes Take by mouth daily. [facility] MULTIVITAMI N ORAL 02-09 14:58: 14 Yes 1{tbl} Take 1 Tab by mouth daily. [facility] loratadine (CLARITIN LIQUI-GEL) 10 mg capsule 02-09 14:58: 14 Yes Take by mouth daily. [facility] MULTIVITAMI N ORAL 02-09 14:58: 14 Yes 1{tbl} Take 1 Tab by mouth daily. [facility] loratadine (CLARITIN LIQUI-GEL) 10 mg capsule 02-09 14:58: 14 Yes Take by mouth daily. [facility] MULTIVITAMI N ORAL 02-09 14:58: 14 Yes 1{tbl} Take 1 Tab by mouth daily. [facility] loratadine (CLARITIN LIQUI-GEL) 10 mg capsule 02-09 14:58: 14 Yes Take by mouth daily. [facility] MULTIVITAMI N ORAL 02-09 14:58: 14 Yes 1{tbl} Take 1 Tab by mouth daily. [facility] loratadine (CLARITIN LIQUI-GEL) 10 mg capsule 02-09 14:58: 14 Yes Take by mouth daily. [facility] proMETHazin e (PHENERGAN) 25 mg tablet 11-20 00:00: 00 Yes 25mg Take 1 tablet by mouth every 6 (six) hours as needed for Nausea and Vomiting (N/V). [facility] proMETHazin e (PHENERGAN) 25 mg tablet 11-20 00:00: 00 02-19 00:00 :00 No 25mg Take 1 tablet by mouth every 6 (six) hours as needed for Nausea and Vomiting (N/V). [facility] carvedilol (COREG) 6.25 mg tablet 09-19 00:00: 00 Yes 6.25mg Take 1 Tab by mouth 2 (two) times daily with meals. [facility] amLODIPine (NORVASC) 10 mg tablet 09-19 00:00: 00 Yes 10mg Take 1 Tab by mouth daily. [facility] lisinopril (PRINIVIL,Z ESTRIL) 40 mg tablet 09-19 00:00: 00 Yes 40mg Take 1 Tab by mouth daily. [facility] carvedilol (COREG) 6.25 mg tablet 09-19 00:00: 00 Yes 6.25mg Take 1 Tab by mouth 2 (two) times daily with meals. [facility] amLODIPine (NORVASC) 10 mg tablet 09-19 00:00: 00 Yes 10mg Take 1 Tab by mouth daily. [facility] lisinopril (PRINIVIL,Z ESTRIL) 40 mg tablet 09-19 00:00: 00 Yes 40mg Take 1 Tab by mouth daily. [facility] carvedilol (COREG) 6.25 mg tablet 09-19 00:00: 00 Yes 6.25mg Take 1 Tab by mouth 2 (two) times daily with meals. [facility] amLODIPine (NORVASC) 10 mg tablet 09-19 00:00: 00 Yes 10mg Take 1 Tab by mouth daily. [facility] lisinopril (PRINIVIL,Z ESTRIL) 40 mg tablet 09-19 00:00: 00 Yes 40mg Take 1 Tab by mouth daily. [facility] carvedilol (COREG) 6.25 mg tablet 09-19 00:00: 00 Yes 6.25mg Take 1 Tab by mouth 2 (two) times daily with meals. [facility] amLODIPine (NORVASC) 10 mg tablet 09-19 00:00: 00 Yes 10mg Take 1 Tab by mouth daily. [facility] lisinopril (PRINIVIL,Z ESTRIL) 40 mg tablet 09-19 00:00: 00 Yes 40mg Take 1 Tab by mouth daily. [facility] carvedilol (COREG) 6.25 mg tablet 09-19 00:00: 00 Yes 6.25mg Take 1 Tab by mouth 2 (two) times daily with meals. [facility] amLODIPine (NORVASC) 10 mg tablet 09-19 00:00: 00 Yes 10mg Take 1 Tab by mouth daily. [facility] lisinopril (PRINIVIL,Z ESTRIL) 40 mg tablet 09-19 00:00: 00 Yes 40mg Take 1 Tab by mouth daily. [facility] carvedilol (COREG) 6.25 mg tablet 09-19 00:00: 00 Yes 6.25mg Take 1 Tab by mouth 2 (two) times daily with meals. [facility] amLODIPine (NORVASC) 10 mg tablet 09-19 00:00: 00 Yes 10mg Take 1 Tab by mouth daily. [facility] lisinopril (PRINIVIL,Z ESTRIL) 40 mg tablet 09-19 00:00: 00 Yes 40mg Take 1 Tab by mouth daily. [facility] carvedilol (COREG) 6.25 mg tablet 09-19 00:00: 00 Yes 6.25mg Take 1 Tab by mouth 2 (two) times daily with meals. [facility] amLODIPine (NORVASC) 10 mg tablet 09-19 00:00: 00 Yes 10mg Take 1 Tab by mouth daily. [facility] lisinopril (PRINIVIL,Z ESTRIL) 40 mg tablet 09-19 00:00: 00 Yes 40mg Take 1 Tab by mouth daily. [facility] carvedilol (COREG) 6.25 mg tablet 09-19 00:00: 00 Yes 6.25mg Take 1 Tab by mouth 2 (two) times daily with meals. [facility] amLODIPine (NORVASC) 10 mg tablet 09-19 00:00: 00 Yes 10mg Take 1 Tab by mouth daily. [facility] lisinopril (PRINIVIL,Z ESTRIL) 40 mg tablet 09-19 00:00: 00 Yes 40mg Take 1 Tab by mouth daily. [facility] carvedilol (COREG) 6.25 mg tablet 09-19 00:00: 00 Yes 6.25mg Take 1 Tab by mouth 2 (two) times daily with meals. [facility] amLODIPine (NORVASC) 10 mg tablet 09-19 00:00: 00 Yes 10mg Take 1 Tab by mouth daily. [facility] lisinopril (PRINIVIL,Z ESTRIL) 40 mg tablet 09-19 00:00: 00 Yes 40mg Take 1 Tab by mouth daily. [facility] carvedilol (COREG) 6.25 mg tablet 09-19 00:00: 00 Yes 6.25mg Take 1 Tab by mouth 2 (two) times daily with meals. [facility] amLODIPine (NORVASC) 10 mg tablet 09-19 00:00: 00 Yes 10mg Take 1 Tab by mouth daily. [facility] lisinopril (PRINIVIL,Z ESTRIL) 40 mg tablet 09-19 00:00: 00 Yes 40mg Take 1 Tab by mouth daily. [facility] carvedilol (COREG) 6.25 mg tablet 09-19 00:00: 00 Yes 6.25mg Take 1 Tab by mouth 2 (two) times daily with meals. [facility] amLODIPine (NORVASC) 10 mg tablet 09-19 00:00: 00 Yes 10mg Take 1 Tab by mouth daily. [facility] lisinopril (PRINIVIL,Z ESTRIL) 40 mg tablet 09-19 00:00: 00 Yes 40mg Take 1 Tab by mouth daily. [facility] carvedilol (COREG) 6.25 mg tablet 09-19 00:00: 00 Yes 6.25mg Take 1 Tab by mouth 2 (two) times daily with meals. [facility] amLODIPine (NORVASC) 10 mg tablet 09-19 00:00: 00 Yes 10mg Take 1 Tab by mouth daily. [facility] lisinopril (PRINIVIL,Z ESTRIL) 40 mg tablet 09-19 00:00: 00 Yes 40mg Take 1 Tab by mouth daily. [facility] carvedilol (COREG) 6.25 mg tablet 09-19 00:00: 00 Yes 6.25mg Take 1 Tab by mouth 2 (two) times daily with meals. [facility] amLODIPine (NORVASC) 10 mg tablet 09-19 00:00: 00 Yes 10mg Take 1 Tab by mouth daily. [facility] lisinopril (PRINIVIL,Z ESTRIL) 40 mg tablet 09-19 00:00: 00 Yes 40mg Take 1 Tab by mouth daily. [facility] carvedilol (COREG) 6.25 mg tablet 09-19 00:00: 00 Yes 6.25mg Take 1 Tab by mouth 2 (two) times daily with meals. [facility] amLODIPine (NORVASC) 10 mg tablet 09-19 00:00: 00 Yes 10mg Take 1 Tab by mouth daily. [facility] lisinopril (PRINIVIL,Z ESTRIL) 40 mg tablet 09-19 00:00: 00 Yes 40mg Take 1 Tab by mouth daily. [facility] carvedilol (COREG) 6.25 mg tablet 09-19 00:00: 00 Yes 6.25mg Take 1 Tab by mouth 2 (two) times daily with meals. [facility] amLODIPine (NORVASC) 10 mg tablet 09-19 00:00: 00 Yes 10mg Take 1 Tab by mouth daily. [facility] lisinopril (PRINIVIL,Z ESTRIL) 40 mg tablet 09-19 00:00: 00 Yes 40mg Take 1 Tab by mouth daily. [facility] carvedilol (COREG) 6.25 mg tablet 09-19 00:00: 00 Yes 6.25mg Take 1 Tab by mouth 2 (two) times daily with meals. [facility] amLODIPine (NORVASC) 10 mg tablet 09-19 00:00: 00 Yes 10mg Take 1 Tab by mouth daily. [facility] lisinopril (PRINIVIL,Z ESTRIL) 40 mg tablet 09-19 00:00: 00 Yes 40mg Take 1 Tab by mouth daily. [facility] carvedilol (COREG) 6.25 mg tablet 09-19 00:00: 00 Yes 6.25mg Take 1 Tab by mouth 2 (two) times daily with meals. [facility] amLODIPine (NORVASC) 10 mg tablet 09-19 00:00: 00 Yes 10mg Take 1 Tab by mouth daily. [facility] lisinopril (PRINIVIL,Z ESTRIL) 40 mg tablet 09-19 00:00: 00 Yes 40mg Take 1 Tab by mouth daily. [facility] carvedilol (COREG) 6.25 mg tablet 09-19 00:00: 00 Yes 6.25mg Take 1 Tab by mouth 2 (two) times daily with meals. [facility] amLODIPine (NORVASC) 10 mg tablet 09-19 00:00: 00 Yes 10mg Take 1 Tab by mouth daily. [facility] lisinopril (PRINIVIL,Z ESTRIL) 40 mg tablet 09-19 00:00: 00 Yes 40mg Take 1 Tab by mouth daily. [facility] carvedilol (COREG) 6.25 mg tablet 09-19 00:00: 00 Yes 6.25mg Take 1 Tab by mouth 2 (two) times daily with meals. [facility] amLODIPine (NORVASC) 10 mg tablet 09-19 00:00: 00 Yes 10mg Take 1 Tab by mouth daily. [facility] lisinopril (PRINIVIL,Z ESTRIL) 40 mg tablet 09-19 00:00: 00 Yes 40mg Take 1 Tab by mouth daily. [facility] carvedilol (COREG) 6.25 mg tablet 09-19 00:00: 00 Yes 6.25mg Take 1 Tab by mouth 2 (two) times daily with meals. [facility] amLODIPine (NORVASC) 10 mg tablet 09-19 00:00: 00 Yes 10mg Take 1 Tab by mouth daily. [facility] lisinopril (PRINIVIL,Z ESTRIL) 40 mg tablet 09-19 00:00: 00 Yes 40mg Take 1 Tab by mouth daily. [facility] Vital Signs Vital Name Observation [...] Systolic blood pressure 2022-12-11 20:00:00 142 mm[Hg] [facility] Diastolic blood pressure 2022-12-11 20:00:00 90 mm[Hg] [facility] Respiratory rate 2022-12-11 20:00:00 24 /min [facility] Heart rate 2022-12-11 18:00:00 101 /min [facility] Oxygen saturation in Arterial blood by Pulse oximetry 2022-12-11 18:00:00 93 /min [facility] BMI 2022-12-11 13:55:00 35.43 kg/m2 [facility] Body temperature 2022-12-11 13:55:00 37.22 Radha [facility] Body weight 2022-12-11 13:55:00 90.719 kg [facility] Systolic blood pressure 2022-11-18 05:34:00 152 mm[Hg] [facility] Diastolic blood pressure 2022-11-18 05:34:00 98 mm[Hg] [facility] Heart rate 2022-11-18 05:34:00 88 /min [facility] Respiratory rate 2022-11-18 05:34:00 18 /min [facility] Oxygen saturation in Arterial blood by Pulse oximetry 2022-11-18 05:34:00 97 /min [facility] Body temperature 2022-11-17 22:28:00 37.06 Radha [facility] Body height 2022-11-17 22:28:00 160 cm [facility] Body weight 2022-11-17 22:28:00 99.791 kg [facility] BMI 2022-11-17 22:28:00 38.97 kg/m2 [facility] Heart rate 2022-08-02 02:02:00 108 /min [facility] Respiratory rate 2022-08-02 02:02:00 28 /min [facility] Oxygen saturation in Arterial blood by Pulse oximetry 2022-08-02 02:02:00 97 /min [facility] Body temperature 2022-08-02 01:00:00 36.44 Radha [facility] Systolic blood pressure 2022-08-01 23:29:00 145 mm[Hg] [facility] Diastolic blood pressure 2022-08-01 23:29:00 103 mm[Hg] [facility] Body weight 2022-08-01 09:16:00 97.977 kg [facility] BMI 2022-08-01 09:16:00 38.26 kg/m2 [facility] Body height 2022-07-31 21:54:00 160 cm [facility] Systolic blood pressure 2022-05-08 16:40:00 146 mm[Hg] [facility] Diastolic blood pressure 2022-05-08 16:40:00 96 mm[Hg] [facility] Heart rate 2022-05-08 16:40:00 112 /min [facility] Body temperature 2022-05-08 16:40:00 36.78 Radha [facility] Respiratory rate 2022-05-08 16:40:00 18 /min [facility] Oxygen saturation in Arterial blood by Pulse oximetry 2022-05-08 16:40:00 94 /min [facility] Body height 2022-05-05 23:44:00 160 cm [facility] Body weight 2022-05-05 23:37:00 81.647 kg [facility] BMI 2022-05-05 23:37:00 31.89 kg/m2 [facility] Systolic blood pressure 2022-04-15 18:52:00 104 mm[Hg] [facility] Diastolic blood pressure 2022-04-15 18:52:00 82 mm[Hg] [facility] Heart rate 2022-04-15 18:52:00 114 /min [facility] Oxygen saturation in Arterial blood by Pulse oximetry 2022-04-15 18:52:00 98 /min [facility] Body temperature 2022-04-15 16:14:00 36.28 Radha [facility] Respiratory rate 2022-04-15 16:14:00 17 /min [facility] Body height 2022-04-13 21:08:00 160 cm [facility] Body weight 2022-04-13 21:08:00 91.173 kg [facility] BMI 2022-04-13 21:08:00 35.61 kg/m2 [facility] Systolic blood pressure 2021-11-23 21:30:00 132 mm[Hg] [facility] Diastolic blood pressure 2021-11-23 21:30:00 76 mm[Hg] [facility] Heart rate 2021-11-23 21:30:00 95 /min [facility] Respiratory rate 2021-11-23 21:30:00 13 /min [facility] Oxygen saturation in Arterial blood by Pulse oximetry 2021-11-23 21:30:00 97 /min [facility] Body temperature 2021-11-23 20:15:00 37.56 Radha [facility] Systolic blood pressure 2021-03-17 03:00:00 117 mm[Hg] [facility] Diastolic blood pressure 2021-03-17 03:00:00 76 mm[Hg] [facility] Heart rate 2021-03-17 03:00:00 104 /min [facility] Respiratory rate 2021-03-17 03:00:00 28 /min [facility] Oxygen saturation in Arterial blood by Pulse oximetry 2021-03-17 03:00:00 96 /min [facility] Body temperature 2021-03-17 00:39:00 37.11 Radha [facility] Body height 2021-03-17 00:39:00 160 cm [facility] Body weight 2021-03-17 00:39:00 58.968 kg [facility] BMI 2021-03-17 00:39:00 23.03 kg/m2 [facility] Systolic blood pressure 2021-03-15 00:14:00 149 mm[Hg] [facility] Diastolic blood pressure 2021-03-15 00:14:00 78 mm[Hg] [facility] Heart rate 2021-03-15 00:14:00 100 /min [facility] Body temperature 2021-03-15 00:14:00 37.33 Radha [facility] Respiratory rate 2021-03-15 00:14:00 24 /min [facility] Body height 2021-03-15 00:14:00 160 cm [facility] Body weight 2021-03-15 00:14:00 58.968 kg [facility] BMI 2021-03-15 00:14:00 23.03 kg/m2 [facility] Oxygen saturation in Arterial blood by Pulse oximetry 2021-03-15 00:14:00 98 /min [facility] Systolic blood pressure 2021-02-19 18:00:00 131 mm[Hg] [facility] Diastolic blood pressure 2021-02-19 18:00:00 80 mm[Hg] [facility] Heart rate 2021-02-19 18:00:00 83 /min [facility] Respiratory rate 2021-02-19 18:00:00 18 /min [facility] Oxygen saturation in Arterial blood by Pulse oximetry 2021-02-19 18:00:00 100 /min [facility] Body temperature 2021-02-19 15:47:00 37 Radha [facility] Body height 2021-02-19 15:47:00 160 cm [facility] Body weight 2021-02-19 15:47:00 58.968 kg [facility] BMI 2021-02-19 15:47:00 23.03 kg/m2 [facility] Heart rate 2023-06-16 17:00:00 108 /min [facility] Systolic blood pressure 2023-06-16 15:31:00 101 mm[Hg] [facility] Diastolic blood pressure 2023-06-16 15:31:00 81 mm[Hg] [facility] Body temperature 2023-06-16 15:31:00 36.61 Radha [facility] Respiratory rate 2023-06-16 15:31:00 18 /min [facility] Oxygen saturation in Arterial blood by Pulse oximetry 2023-06-16 15:31:00 94 /min [facility] Body weight 2023-06-16 05:26:00 86.047 kg [facility] BMI 2023-06-16 05:26:00 33.60 kg/m2 [facility] Body height 2023-06-13 04:00:00 160 cm [facility] Systolic blood pressure 2023-06-04 13:02:00 93 mm[Hg] [facility] Diastolic blood pressure 2023-06-04 13:02:00 57 mm[Hg] [facility] Heart rate 2023-06-04 13:02:00 101 /min [facility] Respiratory rate 2023-06-04 13:02:00 22 /min [facility] Oxygen saturation in Arterial blood by Pulse oximetry 2023-06-04 13:02:00 95 /min room air [facility] Body temperature 2023-06-04 11:46:00 35.28 Radha [facility] Systolic blood pressure 2023-05-28 16:00:00 154 mm[Hg] [facility] Diastolic blood pressure 2023-05-28 16:00:00 82 mm[Hg] [facility] Heart rate 2023-05-28 16:00:00 89 /min [facility] Body temperature 2023-05-28 16:00:00 36.67 Radha [facility] Respiratory rate 2023-05-28 16:00:00 16 /min [facility] Oxygen saturation in Arterial blood by Pulse oximetry 2023-05-28 16:00:00 97 /min [facility] Body height 2023-05-28 07:00:00 157.5 cm [facility] Body weight 2023-05-28 07:00:00 87.544 kg [facility] BMI 2023-05-28 07:00:00 35.30 kg/m2 [facility] Body height 2023-05-26 09:12:00 157.5 cm [facility] Body weight 2023-05-26 09:12:00 87.091 kg [facility] BMI 2023-05-26 09:12:00 35.12 kg/m2 [facility] Respiratory rate 2023-04-02 16:35:00 18 /min [facility] Oxygen saturation in Arterial blood by Pulse oximetry 2023-04-02 16:35:00 98 /min [facility] Systolic blood pressure 2023-04-02 12:00:00 147 mm[Hg] [facility] Diastolic blood pressure 2023-04-02 12:00:00 97 mm[Hg] [facility] Heart rate 2023-04-02 12:00:00 106 /min [facility] Body temperature 2023-04-02 12:00:00 36.28 Radha [facility] Body height 2023-03-30 02:14:00 157.5 cm [facility] Body weight 2023-03-30 02:14:00 92.08 kg [facility] BMI 2023-03-30 02:14:00 37.13 kg/m2 [facility] Respiratory rate 2022-08-03 14:40:00 18 /min [facility] Systolic blood pressure 2022-08-03 12:13:00 112 mm[Hg] [facility] Diastolic blood pressure 2022-08-03 12:13:00 77 mm[Hg] [facility] Heart rate 2022-08-03 12:13:00 115 /min [facility] Oxygen saturation in Arterial blood by Pulse oximetry 2022-08-03 12:13:00 93 /min [facility] Body temperature 2022-08-03 12:00:00 36.83 Radha [facility] Body height 2022-08-02 21:52:00 160.2 cm [facility] Body weight 2022-08-02 21:52:00 95 kg [facility] BMI 2022-08-02 21:52:00 37.02 kg/m2 [facility] BP Systolic 2022-07-24 13:31:00 136 mm[Hg] [...] Source TRANSESOPHAGEAL ECHO 2023-06-16 11:05:00 Aydee Go [facility] T SPOT TB 2023-06-15 04:51:00 Lauren Blair [facility] FUNGITELL R B-D-GLUCAN WITH REFLEX TO TITER 2023-06-15 04:51:00 [facility]ERGILLUS GALACTOMANNAN ANTIGEN 2023-06-15 04:51:00 [facility] VANCOMYCIN LEVEL, TROUGH 2023-06-15 04:51:00 Kaylene Mendosa [facility] T-SPOT(R).TB (QUEST) 2023-06-15 04:27:00 System, Provider Not In [facility] ECHO W CONTRAST & DOPPLER 2023-06-14 09:22:00 [facility] HEMOGLOBIN A1C 2023-06-14 04:08:00 Cara Burgess [facility] CBC (HEMOGRAM ONLY) 2023-06-14 04:08:00 [facility] BASIC METABOLIC PANEL 2023-06-14 04:08:00 [facility] CRYPTOCOCCAL ANTIGEN 2023-06-13 17:21:00 [facility] HC LAB HIV-1 AG W/HIV-1&2 AB 2023-06-13 17:21:00 [facility] VENOUS DOPPLER ARM, LEFT 2023-06-13 17:20:00 Cara Burgess [facility] LEGIONELLA ANTIGEN, URINE 2023-06-13 17:00:00 [facility] SPUTUM CULTURE + GRAM STAIN 2023-06-13 14:33:00 [facility] MR LUMBAR SPINE WITH & WITHOUT IV CONTRAST 2023-06-13 13:03:47 Burt Nelson [facility] ECG 12-LEAD 2023-06-13 11:47:02 [facility] ECG 12-LEAD 2023-06-13 11:47:02 Unknown, [facility] ECG 12-LEAD 2023-06-13 11:47:02 Unknown, [facility] MRSA SCREEN 2023-06-13 09:19:00 [facility] CBC W/PLT COUNT & AUTO DIFFERENTIAL 2023-06-13 06:03[facility] COMPREHENSIVE METABOLIC PANEL 2023-06-13 06:03:00 [facility] PROTHROMBIN TIME/INR 2023-06-13 06:03:00 [facility] CREATINE KINASE (CK) 2023-06-13 06:03:00 [facility] CBC W/PLT COUNT & AUTO DIFFERENTIAL 2023-06-13 06:03:00 [facility] BLOOD CULTURE 2023-06-13 06:02:00 DodieCara richardson [facility] CBC W/PLT COUNT & AUTO DIFFERENTIAL 2023-06-02 04:41:00 Sunil Chu Nimo [facility] BASIC METABOLIC PANEL 2023-06-02 04:41:00 Sunil Chu [facility] MAGNESIUM 2023-06-02 04:41:00 Sunil Chu [facility] PHOSPHORUS 2023-06-02 04:41:00 Sunil Chu Nimo [facility] CBC W/PLT COUNT & AUTO DIFFERENTIAL 2023-06-02 04:41:00 Sunil Chu [facility] XR SPINE LUMBAR 1 VIEW 2023-06-01 10:31:00 Adam Garcia [facility] XR SPINE LUMBAR 1 VIEW 2023-06-01 09:46:00 Adam Garcia [facility] LAMINECTOMY, SPINE, LUMBAR 2023-06-01 09:10:00 Adam Garcia [facility] PROCEDURE W/ C-ARM 2023-06-01 09:10:00 Adam Garcia [facility] LAMINECTOMY, SPINE, LUMBAR 2023-06-01 07:30:00 Adam Garcia [facility] PROCEDURE W/ C-ARM 2023-06-01 07:30:00 JoseAdam [facility] SCREEN, URINE 2023-06-01 04:33:00 Adam Garcia [facility] BASIC METABOLIC PANEL 2023-05-31 22:55:00 Dallas oGmez [facility] CBC W/PLT COUNT & AUTO DIFFERENTIAL 2023-05-31 22:55:[address] [facility] PT/APTT 2023-05-31 22:55:[address] [facility] CBC W/PLT COUNT & AUTO DIFFERENTIAL 2023-05-31 22:55:00 Dallas Gomez [facility] CT NECK SOFT TISSUE WITHOUT IV CONTRAST 2023-05-31 09:39:30 [facility] TYPE AND SCREEN, AUTOMATED 2023-05-31 09:13:00 [facility] BASIC METABOLIC PANEL 2023-05-29 06:43:00 [facility] CBC W/PLT COUNT & AUTO DIFFERENTIAL 2023-05-29 06:43:00 [facility] CBC W/PLT COUNT & AUTO DIFFERENTIAL 2023-05-29 06:43:00 [facility] XR SPINE CERVICAL 2 OR 3 VIEWS 2023-05-28 18:57:00 [facility] [place] [facility] NON-SPECIFIC UP TO 1 HOUR 2023-05-28 10:48:00 Adam Garcia [facility] [place] FLUORO NON-SPECIFIC UP TO 1 HOUR 2023-05-28 10:07:00 Adam Garcia [facility] DISCECTOMY, SPINE, CERVICAL, ANTERIOR APPROACH, WITH FUSION 2023-05-28 08:15:00 JoseAdam [facility] INSERTION, HARDWARE, SPINAL 2023-05-28 08:15:00 [facility] PROCEDURE, ALLOGRAFT, FOR SPINE SURGERY 2023-05-28 08:15:00 [facility] AUTOGRAFT FOR SPINE SURGERY 2023-05-28 08:15:00 Adam Garcia [facility] PROCEDURE W/ C-ARM 2023-05-28 08:15:00 Adam Garcia [facility] NEUROPHYSIOLOGIC MONITORING, INTRAOPERATIVE 2023-05-28 08:15:00 Adam Garcia [facility] PROCEDURE, USING OPERATING MICROSCOPE 2023-05-28 08:15:00 Adam Garcia [facility] HCG, QUANTITATIVE, 2023-05-28 07:42:00 Yue Bui [facility] TYPE AND SCREEN, AUTOMATED 2023-05-28 07:42:00 Quin Scruggs [facility] XR CHEST 1 VIEW PORTABLE / BEDSIDE 2023-04-01 15:32:16 [facility] B-TYPE NATRIURETIC FACTOR (BNP) 2023-04-01 13:32:00 [facility] ECHO W CONTRAST & DOPPLER 2023-03-31 20:18:37 Luis Carlos [facility] MR CERVICAL SPINE WITHOUT IV CONTRAST 2023-03-31 09:25:00 Selin Lewis [facility] CBC (HEMOGRAM ONLY) 2023-03-31 03:45:00 Luis Carlos [facility] COMPREHENSIVE METABOLIC PANEL 2023-03-31 03:45:00 Luis Carlos [facility] ARTERIAL DOPPLER LEGS BILATERAL 2023-03-30 15:45:00 Luis Carlos [facility] ARTERIAL (ALEISHA'S W/ DOPPLER) ONLY 2023-03-30 15:44:00 Luis Carlos [facility] ECG 12-LEAD 2023-03-30 13:06:22 Luis Carlos [facility] ECG 12-LEAD 2023-03-30 13:06:22 Unknown, [facility] ECG 12-LEAD 2023-03-30 13:06:22 Unknown, [facility] MR THORACIC SPINE WITHOUT IV CONTRAST 2023-03-30 12:29:58 Gloria Reyes [facility] MR LUMBAR SPINE WITHOUT IV CONTRAST 2023-03-30 11:58:00 [facility] AWAKE [facility] DROWSY 2023-03-30 09:57:53 [facility]EV[facility], TOTAL 2023-03-30 09:06:00 [facility]/ REFLEX URINE CULTURE 2023-03-30 03:54:00 [facility] ([facility] ONLY[facility] 2023-03-30 03:52[facility] 2023-03-30 03:52:00 [facility] HEMOGLOBIN A1C 2023-03-30 03:52:00 [facility] PT/APTT 2023-03-30 03:52:00 Thomas Lozoya [facility] EKG-SCANNED 2023-03-29 00:00:00 Provider, Default Scanning [facility] CT HEAD WO CONTRAST 2022-12-11 18:36:49 Alfonso Alvarado [facility] URINE DRUG (IMMUNOASSAY) - COMPREHENSIVE DRUG SCREEN 2022-12-11 17:13:00 Alfonso Alvarado [facility] URINALYSIS 2022-12-11 17:13:00 Alfonso Alvarado [facility] CT CHEST PULMONARY ANGIOGRAM 2022-12-11 16:26:39 Alfonso Alvarado [facility] MAGNESIUM 2022-12-11 14:57:00 Alfonso Alvarado [facility] COMP. METABOLIC PANEL ([id number]) 2022-12-11 14:57:00 Alfonso Alvarado [facility] D-DIMER 2022-12-11 14:15:00 Alfonso Alvarado [facility] XR CHEST 1 VW 2022-12-11 14:10:26 Alfonso Alvarado [facility] TROPONIN I 2022-12-11 14:02:00 Alfonso Alvarado [facility] CBC WITH DIFF 2022-12-11 14:02:00 Alfonso Alvarado [facility] N-TERMINAL PRO-BNP 2022-12-11 14:02:00 Alfonso Alvarado [facility] HB ECG ROUTINE & RHYTHM STRIP 2022-12-11 14:01:08 Alfonso Alvarado [facility] CONSENT/REFUSAL FOR DIAGNOSI S AND TREATMENT 2022-12-11 13:52:01 Doctor Unassigned, [place] [facility] ECG 12-LEAD 2022-08-03 05:03:32 Unknown, Hl7 Doctor [facility] ECG 12-LEAD 2022-08-03 05:03:32 Unknown, Hl7 [facility] LIPID PANEL 2022-08-02 21:14:00 [facility] TSH/FREE T4 IF INDICATED 2022-08-02 21:14:00 [facility] VITAMIN B12 2022-08-02 21:14:00 [facility] HEMOGLOBIN A1C 2022-08-02 21:14:00 [facility] COMPREHENSIVE METABOLIC PANEL 2022-08-02 21:14:00 [facility] CBC W/PLT COUNT & AUTO DIFFERENTIAL 2022-08-02 21:14:00 [facility] RPR 2022-08-02 21:14:00 [facility] HC LAB HIV-1 AG W/HIV-1&2 AB 2022-08-02 21:14:00 [facility] C-REACTIVE PROTEIN 2022-08-02 21:14:00 [facility] CBC W/PLT COUNT & AUTO DIFFERENTIAL 2022-08-02 21:14:00 [facility] EKG-SCANNED 2022-08-02 00:00:00 Provider, Default Sarbjit [facility] CT HEAD WO CONTRAST 2022-08-01 23:52:15 Lorenza Lowry [facility] GALV ONLY - INFLUENZA A B RS V PCR 2022-08-01 18:28:00 Letitia Chambers [facility] TRANSTHORACIC ECHO (TTE) COMPLETE W/ CONTRAST 2022-08-01 14:42:00 Kylee Montez [facility] MAGNESIUM 2022-08-01 10:42:00 Lorenza Lowry [facility] BASIC METABOLIC PANEL (NA, K , CL, CO2, GLUCOSE, BUN, CREATININE, CA) 2022-08-01 10:42:00 Lorenza Lowry [facility] CBC WITH DIFF 2022-08-01 10:42:00 Lorenza Lowry [facility] N-TERMINAL PRO-BNP 2022-08-01 10:42:00 [facility] ([facility]OMATED) 2022-08-01 06:56:00 Essence [facility] CRITICAL CARE 2022-07-31 22:31:36 [facility]con [facility] URINALYSIS 2022-07-31 20:52:00 Alcon [facility] URINE DRUG (IMMUNOASSAY) - COMPREHENSIVE DRUG SCREEN W/O REFLEX 2022-07-31 20:52:00 Alcon [facility] XR CHEST 1 VW 2022-07-31 18:45:17 Alcon Sav [facility] LIPASE 2022-07-31 17:58:00 [facility] TROPONIN I 2022-07-31 17:58:00 [facility] COMP. METABOLIC PANEL ([id number]) 2022-07-31 17:58:00 Sav Rondon [facility] CBC WITH DIFF 2022-07-31 17:58:00 lAcon [facility] PROTHROMBIN TIME / INR 2022-07-31 17:58:00 [facility] ACTIVATED PARTIAL THRMPLAS DAVID 2022-07-31 17:58:00 [facility] [facility] N-[facility]MINAL PRO-BNP 2022-07-31 17:58:00 [facility] HB ECG ROUTINE & RHYTHM STRIP 2022-07-31 17:46:28 Sav Rondon [facility] NOTICE OF PRIVACY PRACTICES 2022-07-31 17:35:38 Doctor Unassigned, [place] [facility] CONSENT/REFUSAL FOR DIAGNOSI S AND TREATMENT 2022-07-31 17:35:13 Doctor Unassigned, [place] [facility] PHOSPHORUS 2022-05-08 05:51:00 Shefali Azeem [facility] MAGNESIUM 2022-05-08 05:51:00 Shefali [facility] BASIC METABOLIC PANEL (NA, K , CL, CO2, GLUCOSE, BUN, CREATININE, CA) 2022-05-08 05:51:00 [facility] CBC WITH DIFF 2022-05-08 05:51:00 RajatCelestino [facility] BASIC METABOLIC PANEL (NA, K , CL, CO2, GLUCOSE, BUN, CREATININE, CA) 2022-05-07 07:09:00 John Cintron [facility] CBC WITH DIFF 2022-05-07 07:09:00 John Cintron [facility] POCT GLUCOSE (AUTOMATED) 2022-05-07 01:16:00 Brandyn Ibrahim [facility] HB ABO GROUPING 2022-05-06 05:07:00 Ismael Dunn [facility] BASIC METABOLIC PANEL (NA, K , CL, CO2, GLUCOSE, BUN, CREATININE, CA) 2022-05-06 05:04:00 Shefali [facility] CBC WITH DIFF 2022-05-06 05:04:00 Shefali [facility] KEPPRA (LEVETIRACETAM) 2022-05-06 05:04:00 Shefali [facility] MR LUMBAR SPINE WO CONTRAST 2022-05-06 02:54:37 Ender Monet [facility] ELECTROENCEPHALOGRAM 2022-05-06 00:00:00 John Cintron [facility] BASIC METABOLIC PANEL (NA, K , CL, CO2, GLUCOSE, BUN, CREATININE, CA) 2022-05-05 07:57:00 Ismael Dunn [facility] CBC WITH DIFF 2022-05-05 07:57:00 [place]gasawara, [facility] PROTHROMBIN TIME / INR 2022-05-05 07:57:00 Ismael Dunn [facility] ACTIVATED PARTIAL THRMPLAS DAVID 2022-05-05 07:57:00 Ismael Dunn [facility] FIBRINOGEN 2022-05-05 07:57:00 Ismael Dunn [facility] EMERGENCY SERVICES AGREEMENT S AND AUTHORIZATIONS 2022-05-04 05:01:00 Doctor Unassigned, [place] [facility] VITAMIN D, 25-OH 2022-04-15 16:53:00 [place] [facility] MR THORACIC SPINE WO CONTRAST 2022-04-15 11:56:19 [facility] MR CERVICAL SPINE WO CONTRAST 2022-04-15 11:20:00 [facility] BASIC METABOLIC PANEL (NA, K , CL, CO2, GLUCOSE, BUN, CREATININE, CA) 2022-04-15 10:36:00 Charmaine Morataya [facility] TEST, URINE 2022-04-15 04:39:00 [facility] URINE DRUG (IMMUNOASSAY) - COMPREHENSIVE DRUG SCREEN 2022-04-15 04:39:00 [facility] URINALYSIS 2022-04-15 04:39:00 [facility] TRANSTHORACIC ECHO (TTE) COMPLETE W/ CONTRAST 2022-04-14 16:37:03 [facility] KEPPRA (LEVETIRACETAM) 2022-04-14 15:30:00 [facility] MAGNESIUM 2022-04-14 10:03:00 [facility] BASIC METABOLIC PANEL (NA, K , CL, CO2, GLUCOSE, BUN, CREATININE, CA) 2022-04-14 10:03:00 [facility] MR LUMBAR SPINE WO CONTRAST 2022-04-14 02:48:12 [facility] MR STROKE BRAIN WO CONTRAST 2022-04-14 02:29:00 Lobaina, Soumya [facility] CT STROKE ANGIOGRAM HEAD 2022-04-13 18:40:00 Sapna Vargas [facility] CT STROKE ANGIOGRAM NECK 2022-04-13 18:40:00 Sapna Vargas [facility] CT STROKE HEAD WO CONTRAST 2022-04-13 18:36:00 Sapna Vargas [facility] TROPONIN I 2022-04-13 18:17:00 Sapna Vargas [facility] THYROID STIMULATING HORMONE 2022-04-13 18:17:00 [facility] BASIC METABOLIC PANEL (NA, K , CL, CO2, GLUCOSE, BUN, CREATININE, CA) 2022-04-13 18:17:00 Sapna Vargas [facility] LIPID PANEL ([id number])(TOTAL CHOLESTEROL, TRIGLYCERIDES, HDL) 2022-04-13 18:17:00 [facility] CBC WITHOUT DIFF 2022-04-13 18:17:00 Sapna Vargas [facility] GLYCOSYLATED HEMOGLOBIN (A1C) 2022-04-13 18:17:00 [facility] PROTHROMBIN TIME / INR 2022-04-13 18:17:00 Sapna Vargas [facility] ACTIVATED PARTIAL THRMPLAS DAVID 2022-04-13 18:17:00 Sapna Vargas [facility] COVID-19 (ID NOW RAPID TESTING) 2022-04-13 18:17:00 Sapna Vargas [facility] LAB ONLY COVID INTERPRETATION 2022-04-13 18:17:00 Sapna Vargas [facility] HB ECG ROUTINE & RHYTHM STRIP 2022-04-13 18:15:49 Sapna Vargas [facility] CONSENT/REFUSAL FOR DIAGNOSI S AND TREATMENT 2022-04-13 18:05:14 Doctor Unassigned, [place] [facility] HOSPITAL ADMISSION 2022-04-13 05:01:00 Doctor Unassigned, [place] [facility] SARS-COV-2 COVID-19 VACCINE 12 YRS+,0.3ML,IM (PFIZER - [facility]) 2022-02-19 15:21:12 Doctor Unassigned, [place] [facility] URINE DRUG (IMMUNOASSAY) - COMPREHENSIVE DRUG SCREEN W/O REFLEX 2021-11-23 21:21:00 Nichelle Virk [facility] CT HEAD WO CONTRAST 2021-11-23 20:58:00 Nichelle Virk [facility] POCT TEST 2021-11-23 20:46:00 Nichelle Virk [facility] URINALYSIS 2021-11-23 20:43:00 Nichelle Virk [facility] LIPASE 2021-11-23 20:27:00 Segundo Virk Angel[place] [facility] TROPONIN I 2021-11-23 20:27:00 Segundo Virk [facility] [facility] COMP. METABOLIC PANEL ([id number]) 2021-11-23 20:27:00 Nichelle Virk [facility] CBC WITH DIFF 2021-11-23 20:27:00 Nichelle Virk [facility] POCT GLUCOSE (AUTOMATED) 2021-11-23 20:15:00 Doctor Unassigned, [place] [facility] SARS-COV-2 COVID-19 VACCINE,0.3ML,IM (PFIZER) 2021-05-24 14:23:12 Doctor Unassigned, [place] [facility] SARS-COV-2 COVID-19 VACCINE,0.3ML,IM (PFIZER) 2021-05-03 14:59:29 Doctor Unassigned, [place] [facility] EMERGENCY SERVICES AGREEMENT S AND AUTHORIZATIONS 2021-04-16 05:01:00 Doctor Unassigned, [place] [facility] URINALYSIS 2021-03-17 03:09:00 Fabrice Chakraborty [facility] XR CHEST 1 VW 2021-03-17 01:45:07 Fabrice Chakraborty [facility] TROPONIN I 2021-03-17 01:35:00 Fabrice Chakraborty [facility] COMP. METABOLIC PANEL ([id number]) 2021-03-17 01:35:00 Fabrice Chakraborty [facility] CBC WITH DIFF 2021-03-17 01:35:00 Fabrice Chakraborty [facility] N-TERMINAL PRO-BNP 2021-03-17 01:35:00 Fabrice Chakraborty [facility] COVID-19 (ID NOW RAPID TESTING) 2021-03-17 00:58:00 Brian Ray [facility] CONSENT/REFUSAL FOR DIAGNOSI S AND TREATMENT 2021-03-17 00:32:59 Doctor Unassigned, [place] [facility] COVID-19 (ID NOW RAPID TESTING) 2021-02-19 17:04:00 Anali Monroy [facility] CT ABDOMEN PELVIS W CONTRAST 2021-02-19 16:41:18 Anali Monroy [facility] LIPASE 2021-02-19 15:58:00 Anali Monroy [facility] COMP. METABOLIC PANEL ([id number]) 2021-02-19 15:58:00 Anali Monroy [facility] CBC WITH DIFF 2021-02-19 15:58:00 Anali Monroy [facility] URINALYSIS 2021-02-19 15:58:00 Anali Monroy [facility] NOTICE OF PRIVACY PRACTICES 2021-02-19 15:30:46 Doctor Unassigned, [place] [facility] CONSENT/REFUSAL FOR DIAGNOSI S AND TREATMENT 2021-02-19 15:30:30 Doctor Unassigned, [place] [facility] Plan of Care Planned Activity Planned Date Details Comments Source Future Scheduled Test 2025-08-02 00:00:00 Lipid panel (procedure) [code = 02960679] [facility] Future Scheduled Test 2025-08-02 00:00:00 Lipid panel (procedure) [code = 73622000] [facility] Future Scheduled Test 2025-08-02 00:00:00 Lipid panel (procedure) [code = 27465637] [facility] Future Scheduled Test 2025-08-02 00:00:00 Lipid panel (procedure) [code = 46080432] [facility] Future Scheduled Test 2025-08-02 00:00:00 Lipid panel (procedure) [code = 00635633] [facility] Future Scheduled Test 2025-08-02 00:00:00 Lipid panel (procedure) [code = 28405401] [facility] Future Scheduled Test 2025-08-02 00:00:00 Lipid panel (procedure) [code = 13383838] [facility] Future Scheduled Test 2025-08-02 00:00:00 Lipid panel (procedure) [code = 58954575] [facility] Future Scheduled Test 2025-08-02 00:00:00 Lipid panel (procedure) [code = 73687549] [facility] Future Scheduled Test 2025-08-02 00:00:00 Lipid panel (procedure) [code = 47805201] [facility] Future Scheduled Test 2025-08-02 00:00:00 Lipid panel (procedure) [code = 14905347] [facility] Future Scheduled Test 2025-08-02 00:00:00 Lipid panel (procedure) [code = 65268457] [facility] Future Scheduled Test 2025-08-02 00:00:00 Lipid panel (procedure) [code = 45822876] [facility] Future Scheduled Test 2025-08-02 00:00:00 Lipid panel (procedure) [code = 85910930] [facility] Future Scheduled Test 2025-08-02 00:00:00 Lipid panel (procedure) [code = 82597153] [facility] Future Scheduled Test 2025-08-02 00:00:00 Lipid panel (procedure) [code = 24169768] [facility] Future Scheduled Test 2025-08-02 00:00:00 Lipid panel (procedure) [code = 38720673] [facility] Future Scheduled Test 2025-08-02 00:00:00 Lipid panel (procedure) [code = 28753434] [facility] Future Scheduled Test 2025-08-02 00:00:00 Lipid panel (procedure) [code = 77703258] [facility] Future Scheduled Test 2025-08-02 00:00:00 Lipid panel (procedure) [code = 64247195] [facility] Future Scheduled Test 2025-08-02 00:00:00 Lipid panel (procedure) [code = 90349212] [facility] Future Scheduled Test 2025-08-02 00:00:00 Lipid panel (procedure) [code = 65865014] [facility] Future Scheduled Test 2025-08-02 00:00:00 Lipid panel (procedure) [code = 85123187] [facility] Future Scheduled Test 2025-08-02 00:00:00 Lipid panel (procedure) [code = 20024096] [facility] Future Scheduled Test 2025-08-02 00:00:00 Lipid panel (procedure) [code = 07125620] [facility] Future Scheduled Test 2025-08-02 00:00:00 Lipid panel (procedure) [code = 95482313] [facility] Future Scheduled Test 2025-08-02 00:00:00 Lipid panel (procedure) [code = 39542703] [facility] Future Scheduled Test 2025-08-02 00:00:00 Lipid panel (procedure) [code = 67027106] [facility] Future Scheduled Test 2025-08-02 00:00:00 Lipid panel (procedure) [code = 89402487] [facility] Future Scheduled Test 2025-08-02 00:00:00 Lipid panel (procedure) [code = 53561628] [facility] Future Scheduled Test 2025-08-02 00:00:00 Lipid panel (procedure) [code = 23011469] [facility] Future Scheduled Test 2025-08-02 00:00:00 Lipid panel (procedure) [code = 57386054] [facility] Future Scheduled Test 2025-08-02 00:00:00 Lipid panel (procedure) [code = 46872888] [facility] Future Scheduled Test 2025-08-02 00:00:00 Lipid panel (procedure) [code = 29559902] [facility] Future Scheduled Test 2025-08-02 00:00:00 Lipid panel (procedure) [code = 70661431] [facility] Future Scheduled Test 2025-08-02 00:00:00 Lipid panel (procedure) [code = 94150414] [facility] Future Scheduled Test 2025-08-02 00:00:00 Lipid panel (procedure) [code = 19607619] [facility] Future Scheduled Test 2025-08-02 00:00:00 Lipid panel (procedure) [code = 49505549] [facility] Future Scheduled Test 2025-08-02 00:00:00 Lipid panel (procedure) [code = 08255175] [facility] Future Scheduled Test 2025-08-02 00:00:00 Lipid panel (procedure) [code = 20521083] [facility] Scheduled Test 2024-05-28 00:00:00 Tobacco Cessation Counseling and Screening (12+) [code = Tobacco Cessation Counseling and Screening (12+)] [facility] Scheduled Test 2024-05-28 00:00:00 Tobacco Cessation Counseling and Screening (12+) [code = Tobacco Cessation Counseling and Screening (12+)] [facility] Scheduled Test 2024-05-28 00:00:00 Tobacco Cessation Counseling and Screening (12+) [code = Tobacco Cessation Counseling and Screening (12+)] [facility] Scheduled Test 2024-05-28 00:00:00 Tobacco Cessation Counseling and Screening (12+) [code = Tobacco Cessation Counseling and Screening (12+)] [facility] Scheduled Test 2024-05-28 00:00:00 Tobacco Cessation Counseling and Screening (12+) [code = Tobacco Cessation Counseling and Screening (12+)] [facility] Scheduled Test 2024-05-28 00:00:00 Tobacco Cessation Counseling and Screening (12+) [code = Tobacco Cessation Counseling and Screening (12+)] [facility] Future Scheduled Test 2024-05-28 00:00:00 Tobacco Cessation Counseling and Screening (12+) [code = Tobacco Cessation Counseling and Screening (12+)] [facility] Scheduled Test 2024-05-28 00:00:00 Tobacco Cessation Counseling and Screening (12+) [code = Tobacco Cessation Counseling and Screening (12+)] [facility] Scheduled Test 2024-05-28 00:00:00 Tobacco Cessation Counseling and Screening (12+) [code = Tobacco Cessation Counseling and Screening (12+)] [facility] Scheduled Test 2024-05-28 00:00:00 Tobacco Cessation Counseling and Screening (12+) [code = Tobacco Cessation Counseling and Screening (12+)] [facility] Future Scheduled Test 2024-05-28 00:00:00 Tobacco Cessation Counseling and Screening (12+) [code = Tobacco Cessation Counseling and Screening (12+)] [facility] Scheduled Test 2024-05-28 00:00:00 Tobacco Cessation Counseling and Screening (12+) [code = Tobacco Cessation Counseling and Screening (12+)] [facility] Scheduled Test 2024-05-28 00:00:00 Tobacco Cessation Counseling and Screening (12+) [code = Tobacco Cessation Counseling and Screening (12+)] [facility] Scheduled Test 2024-05-28 00:00:00 Tobacco Cessation Counseling and Screening (12+) [code = Tobacco Cessation Counseling and Screening (12+)] [facility] Scheduled Test 2024-05-28 00:00:00 Tobacco Cessation Counseling and Screening (12+) [code = Tobacco Cessation Counseling and Screening (12+)] [facility] Scheduled Test 2024-05-26 00:00:00 Tobacco Cessation Counseling and Screening (12+) [code = Tobacco Cessation Counseling and Screening (12+)] [facility] Scheduled Test 2024-05-26 00:00:00 Tobacco Cessation Counseling and Screening (12+) [code = Tobacco Cessation Counseling and Screening (12+)] [facility] Scheduled Test 2023-07-20 00:00:00 DEPRESSION SCREENING (12+) [code = DEPRESSION SCREENING (12+)] [facility] Future Scheduled Test 2023-07-20 00:00:00 DEPRESSION SCREENING (12+) [code = DEPRESSION SCREENING (12+)] [facility] Future Scheduled Test 2023-07-20 00:00:00 DEPRESSION SCREENING (12+) [code = DEPRESSION SCREENING (12+)] [facility] Scheduled Test 2023-07-20 00:00:00 DEPRESSION SCREENING (12+) [code = DEPRESSION SCREENING (12+)] [facility] Scheduled Test 2023-07-20 00:00:00 DEPRESSION SCREENING (12+) [code = DEPRESSION SCREENING (12+)] [facility] Future Scheduled Test 2023-07-20 00:00:00 DEPRESSION SCREENING (12+) [code = DEPRESSION SCREENING (12+)] [facility] Future Scheduled Test 2023-07-20 00:00:00 DEPRESSION SCREENING (12+) [code = DEPRESSION SCREENING (12+)] [facility] Future Scheduled Test 2023-03-20 00:00:00 INFLUENZA VACCINE (Season Ended) [code = INFLUENZA VACCINE (Season Ended)] [facility] Future Scheduled Test 2023-03-20 00:00:00 INFLUENZA VACCINE (Season Ended) [code = INFLUENZA VACCINE (Season Ended)] [facility] Future Scheduled Test 2023-03-20 00:00:00 INFLUENZA VACCINE (Season Ended) [code = INFLUENZA VACCINE (Season Ended)] [facility] Future Scheduled Test 2023-03-20 00:00:00 INFLUENZA VACCINE (Season Ended) [code = INFLUENZA VACCINE (Season Ended)] [facility] Future Scheduled Test 2023-03-20 00:00:00 INFLUENZA VACCINE (Season Ended) [code = INFLUENZA VACCINE (Season Ended)] [facility] Future Scheduled Test 2023-03-20 00:00:00 INFLUENZA VACCINE (Season Ended) [code = INFLUENZA VACCINE (Season Ended)] [facility] Future Scheduled Test 2023-03-20 00:00:00 Influenza Vaccine (Season Ended) [code = Influenza Vaccine (Season Ended)] [facility] Future Scheduled Test 2023-03-20 00:00:00 Influenza Vaccine (Season Ended) [code = Influenza Vaccine (Season Ended)] [facility] Future Scheduled Test 2023-03-20 00:00:00 Influenza Vaccine (#1) [code = Influenza Vaccine (#1)] [facility] Future Scheduled Test 2023-03-20 00:00:00 Influenza Vaccine (#1) [code = Influenza Vaccine (#1)] [facility] Future Scheduled Test 2023-03-20 00:00:00 Influenza Vaccine (#1) [code = Influenza Vaccine (#1)] [facility] Future Scheduled Test 2023-03-20 00:00:00 Influenza Vaccine (#1) [code = Influenza Vaccine (#1)] [facility] Future Scheduled Test 2023-03-20 00:00:00 COVID-19 VACCINE ( season) [code = COVID-19 VACCINE ( season)] [facility] Future Scheduled Test 2023-03-20 00:00:00 Influenza Vaccine (#1) [code = Influenza Vaccine (#1)] [facility] Future Scheduled Test 2023-03-20 00:00:00 COVID-19 VACCINE ( season) [code = COVID-19 VACCINE ( season)] [facility] Future Scheduled Test 2023-03-20 00:00:00 Influenza Vaccine (#1) [code = Influenza Vaccine (#1)] [facility] Future Scheduled Test 2023-03-20 00:00:00 COVID-19 VACCINE ( season) [code = COVID-19 VACCINE ()] [facility] Future Scheduled Test 2023-03-20 00:00:00 Influenza Vaccine (#1) [code = Influenza Vaccine (#1)] [facility] Future Scheduled Test 2023-03-20 00:00:00 COVID-19 VACCINE ( season) [code = COVID-19 VACCINE ( season)] [facility] Future Scheduled Test 2023-03-20 00:00:00 Influenza Vaccine (#1) [code = Influenza Vaccine (#1)] [facility] Future Scheduled Test 2023-03-20 00:00:00 Influenza Vaccine (#1) [code = Influenza Vaccine (#1)] [facility] Future Scheduled Test 2023-03-20 00:00:00 COVID-19 VACCINE ( season) [code = COVID-19 VACCINE ( season)] [facility] Future Scheduled Test 2023-03-20 00:00:00 Influenza Vaccine (#1) [code = Influenza Vaccine (#1)] [facility] Future Scheduled Test 2023-03-20 00:00:00 COVID-19 VACCINE ( season) [code = COVID-19 VACCINE ( season)] [facility] Future Scheduled Test 2023-03-20 00:00:00 Influenza Vaccine (#1) [code = Influenza Vaccine (#1)] [facility] Future Scheduled Test 2023-03-20 00:00:00 COVID-19 VACCINE ( season) [code = COVID-19 VACCINE ()] [facility] Future Scheduled Test 2023-03-20 00:00:00 Influenza Vaccine (#1) [code = Influenza Vaccine (#1)] [facility] Future Scheduled Test 2023-03-20 00:00:00 COVID-19 VACCINE ( season) [code = COVID-19 VACCINE ()] [facility] Future Scheduled Test 2023-03-20 00:00:00 Influenza Vaccine (#1) [code = Influenza Vaccine (#1)] [facility] Future Scheduled Test 2023-03-20 00:00:00 Influenza Vaccine (#1) [code = Influenza Vaccine (#1)] [facility] Future Scheduled Test 2023-03-20 00:00:00 Influenza Vaccine (#1) [code = Influenza Vaccine (#1)] [facility] Future Scheduled Test 2023-03-20 00:00:00 Influenza Vaccine (#1) [code = Influenza Vaccine (#1)] [facility] Future Scheduled Test 2023-03-20 00:00:00 Influenza Vaccine (#1) [code = Influenza Vaccine (#1)] [facility] Future Scheduled Test 2023-03-20 00:00:00 Influenza Vaccine (#1) [code = Influenza Vaccine (#1)] [facility] Future Scheduled Test 2023-03-20 00:00:00 Influenza Vaccine (#1) [code = Influenza Vaccine (#1)] [facility] Future Scheduled Test 2023-03-20 00:00:00 Influenza Vaccine (#1) [code = Influenza Vaccine (#1)] [facility] Future Scheduled Test 2023-03-20 00:00:00 Influenza Vaccine (#1) [code = Influenza Vaccine (#1)] [facility] Future Scheduled Test 2023-03-20 00:00:00 Influenza Vaccine (#1) [code = Influenza Vaccine (#1)] [facility] Future Scheduled Test 2023-03-20 00:00:00 Influenza Vaccine (#1) [code = Influenza Vaccine (#1)] [facility] Future Scheduled Test 2023-03-20 00:00:00 Influenza Vaccine (#1) [code = Influenza Vaccine (#1)] [facility] Future Scheduled Test 2023-03-20 00:00:00 Influenza Vaccine (#1) [code = Influenza Vaccine (#1)] [facility] Future Scheduled Test 2023-03-20 00:00:00 Influenza Vaccine (#1) [code = Influenza Vaccine (#1)] [facility] Future Scheduled Test 2023-03-20 00:00:00 Influenza Vaccine (#1) [code = Influenza Vaccine (#1)] [facility] Future Scheduled Test 2023-03-20 00:00:00 COVID-19 VACCINE ( season) [code = COVID-19 VACCINE ( season)] [facility] Future Scheduled Test 2023-03-20 00:00:00 COVID-19 VACCINE ( season) [code = COVID-19 VACCINE ( season)] [facility] Future Scheduled Test 2023-03-20 00:00:00 Influenza Vaccine (#1) [code = Influenza Vaccine (#1)] [facility] Future Scheduled Test 2022-07-20 00:00:00 DEPRESSION SCREENING (12+) [code = DEPRESSION SCREENING (12+)] [facility] Future Scheduled Test 2022-07-20 00:00:00 DEPRESSION SCREENING (12+) [code = DEPRESSION SCREENING (12+)] [facility] Future Scheduled Test 2022-07-20 00:00:00 DEPRESSION SCREENING (12+) [code = DEPRESSION SCREENING (12+)] [facility] Future Scheduled Test 2022-07-20 00:00:00 DEPRESSION SCREENING (12+) [code = DEPRESSION SCREENING (12+)] [facility] Future Scheduled Test 2022-07-20 00:00:00 DEPRESSION SCREENING (12+) [code = DEPRESSION SCREENING (12+)] [facility] Future Scheduled Test 2022-07-20 00:00:00 DEPRESSION SCREENING (12+) [code = DEPRESSION SCREENING (12+)] [facility] Future Scheduled Test 2022-07-20 00:00:00 DEPRESSION SCREENING (12+) [code = DEPRESSION SCREENING (12+)] [facility] Future Scheduled Test 2022-07-20 00:00:00 DEPRESSION SCREENING (12+) [code = DEPRESSION SCREENING (12+)] [facility] Future Scheduled Test 2022-07-20 00:00:00 DEPRESSION SCREENING (12+) [code = DEPRESSION SCREENING (12+)] [facility] Future Scheduled Test 2022-07-20 00:00:00 DEPRESSION SCREENING (12+) [code = DEPRESSION SCREENING (12+)] [facility] Future Scheduled Test 2022-07-20 00:00:00 DEPRESSION SCREENING (12+) [code = DEPRESSION SCREENING (12+)] [facility] Future Scheduled Test 2022-07-20 00:00:00 DEPRESSION SCREENING (12+) [code = DEPRESSION SCREENING (12+)] [facility] Future Scheduled Test 2022-07-20 00:00:00 DEPRESSION SCREENING (12+) [code = DEPRESSION SCREENING (12+)] [facility] Future Scheduled Test 2022-07-20 00:00:00 DEPRESSION SCREENING (12+) [code = DEPRESSION SCREENING (12+)] [facility] Future Scheduled Test 2022-07-20 00:00:00 DEPRESSION SCREENING (12+) [code = DEPRESSION SCREENING (12+)] [facility] Future Scheduled Test 2022-07-20 00:00:00 DEPRESSION SCREENING (12+) [code = DEPRESSION SCREENING (12+)] [facility] Scheduled Test 2022-07-20 00:00:00 DEPRESSION SCREENING (12+) [code = DEPRESSION SCREENING (12+)] [facility] Scheduled Test 2022-07-20 00:00:00 DEPRESSION SCREENING (12+) [code = DEPRESSION SCREENING (12+)] [facility] Scheduled Test 2022-07-20 00:00:00 DEPRESSION SCREENING (12+) [code = DEPRESSION SCREENING (12+)] [facility] Scheduled Test 2022-07-20 00:00:00 DEPRESSION SCREENING (12+) [code = DEPRESSION SCREENING (12+)] [facility] Scheduled Test 2022-07-20 00:00:00 DEPRESSION SCREENING (12+) [code = DEPRESSION SCREENING (12+)] [facility] Scheduled Test 2022-07-20 00:00:00 DEPRESSION SCREENING (12+) [code = DEPRESSION SCREENING (12+)] [facility] Scheduled Test 2022-07-20 00:00:00 DEPRESSION SCREENING (12+) [code = DEPRESSION SCREENING (12+)] [facility] Scheduled Test 2022-07-20 00:00:00 DEPRESSION SCREENING (12+) [code = DEPRESSION SCREENING (12+)] [facility] Scheduled Test 2022-07-20 00:00:00 DEPRESSION SCREENING (12+) [code = DEPRESSION SCREENING (12+)] [facility] Scheduled Test 2022-07-20 00:00:00 DEPRESSION SCREENING (12+) [code = DEPRESSION SCREENING (12+)] [facility] Scheduled Test 2022-07-20 00:00:00 DEPRESSION SCREENING (12+) [code = DEPRESSION SCREENING (12+)] [facility] Scheduled Test 2022-07-20 00:00:00 DEPRESSION SCREENING (12+) [code = DEPRESSION SCREENING (12+)] [facility] Scheduled Test 2022-07-20 00:00:00 DEPRESSION SCREENING (12+) [code = DEPRESSION SCREENING (12+)] [facility] Scheduled Test 2022-07-20 00:00:00 DEPRESSION SCREENING (12+) [code = DEPRESSION SCREENING (12+)] [facility] Scheduled Test 2022-07-20 00:00:00 DEPRESSION SCREENING (12+) [code = DEPRESSION SCREENING (12+)] [facility] Scheduled Test 2022-07-20 00:00:00 DEPRESSION SCREENING (12+) [code = DEPRESSION SCREENING (12+)] [facility] Scheduled Test 2022-07-20 00:00:00 DEPRESSION SCREENING (12+) [code = DEPRESSION SCREENING (12+)] [facility] Scheduled Test 2022-06-21 00:00:00 COVID-19 VACCINE (4 - Booster for Pfizer series) [code = COVID-19 VACCINE (4 - Booster for Pfizer series)] [facility] Scheduled Test 2022-06-21 00:00:00 COVID-19 VACCINE (4 - Booster for Pfizer series) [code = COVID-19 VACCINE (4 - Booster for Pfizer series)] [facility] Scheduled Test 2022-06-21 00:00:00 COVID-19 VACCINE (4 - Booster for Pfizer series) [code = COVID-19 VACCINE (4 - Booster for Pfizer series)] [facility] Scheduled Test 2022-06-21 00:00:00 COVID-19 VACCINE (4 - Booster for Pfizer series) [code = COVID-19 VACCINE (4 - Booster for Pfizer series)] [facility] Scheduled Test 2022-04-16 00:00:00 COVID-19 VACCINE (4 - Booster for Pfizer series) [code = COVID-19 VACCINE (4 - Booster for Pfizer series)] [facility] Scheduled Test 2022-04-16 00:00:00 COVID-19 VACCINE (4 - Booster for Pfizer series) [code = COVID-19 VACCINE (4 - Booster for Pfizer series)] [facility] Scheduled Test 2022-04-16 00:00:00 COVID-19 VACCINE (4 - Booster for Pfizer series) [code = COVID-19 VACCINE (4 - Booster for Pfizer series)] [facility] Scheduled Test 2022-04-16 00:00:00 COVID-19 VACCINE (4 - Booster for Pfizer series) [code = COVID-19 VACCINE (4 - Booster for Pfizer series)] [facility] Scheduled Test 2022-04-16 00:00:00 COVID-19 VACCINE (4 - Booster for Pfizer series) [code = COVID-19 VACCINE (4 - Booster for Pfizer series)] [facility] Scheduled Test 2022-04-16 00:00:00 COVID-19 VACCINE (4 - Booster for Pfizer series) [code = COVID-19 VACCINE (4 - Booster for Pfizer series)] [facility] Scheduled Test 2022-04-16 00:00:00 COVID-19 VACCINE (4 - Booster for Pfizer series) [code = COVID-19 VACCINE (4 - Booster for Pfizer series)] [facility] Scheduled Test 2022-04-16 00:00:00 COVID-19 VACCINE (4 - Booster for Pfizer series) [code = COVID-19 VACCINE (4 - Booster for Pfizer series)] [facility] Scheduled Test 2022-04-16 00:00:00 COVID-19 VACCINE (4 - Booster for Pfizer series) [code = COVID-19 VACCINE (4 - Booster for Pfizer series)] [facility] Scheduled Test 2022-04-16 00:00:00 COVID-19 VACCINE (4 - Booster for Pfizer series) [code = COVID-19 VACCINE (4 - Booster for Pfizer series)] [facility] Scheduled Test 2022-04-16 00:00:00 COVID-19 VACCINE (4 - Booster for Pfizer series) [code = COVID-19 VACCINE (4 - Booster for Pfizer series)] [facility] Scheduled Test 2022-04-16 00:00:00 COVID-19 VACCINE (4 - Booster for Pfizer series) [code = COVID-19 VACCINE (4 - Booster for Pfizer series)] [facility] Scheduled Test 2022-04-16 00:00:00 COVID-19 VACCINE (4 - Booster for Pfizer series) [code = COVID-19 VACCINE (4 - Booster for Pfizer series)] [facility] Scheduled Test 2022-04-16 00:00:00 COVID-19 VACCINE (4 - Booster for Pfizer series) [code = COVID-19 VACCINE (4 - Booster for Pfizer series)] [facility] Scheduled Test 2022-04-16 00:00:00 COVID-19 VACCINE (4 - Booster for Pfizer series) [code = COVID-19 VACCINE (4 - Booster for Pfizer series)] [facility] Scheduled Test 2022-04-16 00:00:00 COVID-19 VACCINE (4 - Booster for Pfizer series) [code = COVID-19 VACCINE (4 - Booster for Pfizer series)] [facility] Scheduled Test 2022-04-16 00:00:00 COVID-19 VACCINE (4 - Booster for Pfizer series) [code = COVID-19 VACCINE (4 - Booster for Pfizer series)] [facility] Scheduled Test 2022-04-16 00:00:00 COVID-19 VACCINE (4 - Booster for Pfizer series) [code = COVID-19 VACCINE (4 - Booster for Pfizer series)] [facility] Scheduled Test 2022-04-16 00:00:00 COVID-19 VACCINE (4 - Booster for Pfizer series) [code = COVID-19 VACCINE (4 - Booster for Pfizer series)] [facility] Scheduled Test 2022-04-16 00:00:00 COVID-19 VACCINE (4 - Booster for Pfizer series) [code = COVID-19 VACCINE (4 - Booster for Pfizer series)] [facility] Scheduled Test 2022-04-16 00:00:00 COVID-19 VACCINE (4 - Pfizer series) [code = COVID-19 VACCINE (4 - Pfizer series)] [facility] Scheduled Test 2022-04-16 00:00:00 COVID-19 VACCINE (4 - Pfizer series) [code = COVID-19 VACCINE (4 - Pfizer series)] [facility] Scheduled Test 2022-04-16 00:00:00 COVID-19 VACCINE (4 - Pfizer series) [code = COVID-19 VACCINE (4 - Pfizer series)] [facility] Scheduled Test 2022-04-16 00:00:00 COVID-19 VACCINE (4 - Pfizer series) [code = COVID-19 VACCINE (4 - Pfizer series)] [facility] Scheduled Test 2022-04-16 00:00:00 COVID-19 VACCINE (4 - Booster for Pfizer series) [code = COVID-19 VACCINE (4 - Booster for Pfizer series)] [facility] Scheduled Test 2022-04-16 00:00:00 COVID-19 VACCINE (4 - Pfizer series) [code = COVID-19 VACCINE (4 - Pfizer series)] [facility] Scheduled Test 2022-03-20 00:00:00 INFLUENZA VACCINE (#1) [code = INFLUENZA VACCINE (#1)] [facility] Scheduled Test 2022-03-20 00:00:00 INFLUENZA VACCINE (#1) [code = INFLUENZA VACCINE (#1)] [facility] Scheduled Test 2022-03-20 00:00:00 INFLUENZA VACCINE (#1) [code = INFLUENZA VACCINE (#1)] [facility] Scheduled Test 2022-03-20 00:00:00 INFLUENZA VACCINE (#1) [code = INFLUENZA VACCINE (#1)] [facility] Scheduled Test 2022-01-14 00:00:00 SHINGLES VACCINES (1 of 2) [code = SHINGLES VACCINES (1 of 2)] [facility] Scheduled Test 2022-01-14 00:00:00 SHINGLES VACCINES (1 of 2) [code = SHINGLES VACCINES (1 of 2)] [facility] Scheduled Test 2022-01-14 00:00:00 SHINGLES VACCINES (1 of 2) [code = SHINGLES VACCINES (1 of 2)] [facility] Scheduled Test 2022-01-14 00:00:00 SHINGLES VACCINES (1 of 2) [code = SHINGLES VACCINES (1 of 2)] [facility] Scheduled Test 2022-01-14 00:00:00 SHINGLES VACCINES (1 of 2) [code = SHINGLES VACCINES (1 of 2)] [facility] Scheduled Test 2022-01-14 00:00:00 SHINGLES VACCINES (1 of 2) [code = SHINGLES VACCINES (1 of 2)] [facility] Scheduled Test 2022-01-14 00:00:00 SHINGLES VACCINES (1 of 2) [code = SHINGLES VACCINES (1 of 2)] [facility] Scheduled Test 2022-01-14 00:00:00 SHINGLES VACCINES (1 of 2) [code = SHINGLES VACCINES (1 of 2)] [facility] Scheduled Test 2022-01-14 00:00:00 SHINGLES VACCINES (1 of 2) [code = SHINGLES VACCINES (1 of 2)] [facility] Scheduled Test 2022-01-14 00:00:00 SHINGLES VACCINES (1 of 2) [code = SHINGLES VACCINES (1 of 2)] [facility] Scheduled Test 2022-01-14 00:00:00 SHINGLES VACCINES (1 of 2) [code = SHINGLES VACCINES (1 of 2)] [facility] Scheduled Test 2022-01-14 00:00:00 SHINGLES VACCINES (1 of 2) [code = SHINGLES VACCINES (1 of 2)] [facility] Scheduled Test 2022-01-14 00:00:00 SHINGLES VACCINES (1 of 2) [code = SHINGLES VACCINES (1 of 2)] [facility] Scheduled Test 2022-01-14 00:00:00 SHINGLES VACCINES (1 of 2) [code = SHINGLES VACCINES (1 of 2)] [facility] Scheduled Test 2022-01-14 00:00:00 SHINGLES VACCINES (1 of 2) [code = SHINGLES VACCINES (1 of 2)] [facility] Scheduled Test 2022-01-14 00:00:00 Screening for malignant neoplasm of lung (procedure) [code = [id number]] [facility] Scheduled Test 2022-01-14 00:00:00 SHINGLES VACCINES (1 of 2) [code = SHINGLES VACCINES (1 of 2)] [facility] Scheduled Test 2022-01-14 00:00:00 Screening for malignant neoplasm of lung (procedure) [code = [id number]] [facility] Scheduled Test 2022-01-14 00:00:00 SHINGLES VACCINES (1 of 2) [code = SHINGLES VACCINES (1 of 2)] [facility] Scheduled Test 2022-01-14 00:00:00 Screening for malignant neoplasm of lung (procedure) [code = [id number]] [facility] Scheduled Test 2022-01-14 00:00:00 SHINGLES VACCINES (1 of 2) [code = SHINGLES VACCINES (1 of 2)] [facility] Scheduled Test 2022-01-14 00:00:00 Screening for malignant neoplasm of lung (procedure) [code = [id number]] [facility] Scheduled Test 2022-01-14 00:00:00 SHINGLES VACCINES (1 of 2) [code = SHINGLES VACCINES (1 of 2)] [facility] Scheduled Test 2022-01-14 00:00:00 Screening for malignant neoplasm of lung (procedure) [code = 411378746] [facility] Scheduled Test 2022-01-14 00:00:00 SHINGLES VACCINES (1 of 2) [code = SHINGLES VACCINES (1 of 2)] [facility] Scheduled Test 2022-01-14 00:00:00 Screening for malignant neoplasm of lung (procedure) [code = 114163344] [facility] Scheduled Test 2022-01-14 00:00:00 SHINGLES VACCINES (1 of 2) [code = SHINGLES VACCINES (1 of 2)] [facility] Scheduled Test 2022-01-14 00:00:00 Screening for malignant neoplasm of lung (procedure) [code = 098103447] [facility] Scheduled Test 2022-01-14 00:00:00 SHINGLES VACCINES (1 of 2) [code = SHINGLES VACCINES (1 of 2)] [facility] Scheduled Test 2022-01-14 00:00:00 Screening for malignant neoplasm of lung (procedure) [code = 160180609] [facility] Scheduled Test 2022-01-14 00:00:00 SHINGLES VACCINES (1 of 2) [code = SHINGLES VACCINES (1 of 2)] [facility] Scheduled Test 2022-01-14 00:00:00 Screening for malignant neoplasm of lung (procedure) [code = 389797774] [facility] Scheduled Test 2022-01-14 00:00:00 SHINGLES VACCINES (1 of 2) [code = SHINGLES VACCINES (1 of 2)] [facility] Scheduled Test 2022-01-14 00:00:00 Screening for malignant neoplasm of lung (procedure) [code = 074370324] [facility] Scheduled Test 2022-01-14 00:00:00 SHINGLES VACCINES (1 of 2) [code = SHINGLES VACCINES (1 of 2)] [facility] Scheduled Test 2022-01-14 00:00:00 Screening for malignant neoplasm of lung (procedure) [code = 491198631] [facility] Scheduled Test 2022-01-14 00:00:00 SHINGLES VACCINES (1 of 2) [code = SHINGLES VACCINES (1 of 2)] [facility] Scheduled Test 2022-01-14 00:00:00 Screening for malignant neoplasm of lung (procedure) [code = 379812330] [facility] Scheduled Test 2022-01-14 00:00:00 SHINGLES VACCINES (1 of 2) [code = SHINGLES VACCINES (1 of 2)] [facility] Scheduled Test 2022-01-14 00:00:00 Screening for malignant neoplasm of lung (procedure) [code = 654678391] [facility] Scheduled Test 2022-01-14 00:00:00 SHINGLES VACCINES (1 of 2) [code = SHINGLES VACCINES (1 of 2)] [facility] Scheduled Test 2022-01-14 00:00:00 Screening for malignant neoplasm of lung (procedure) [code = 757679956] [facility] Scheduled Test 2022-01-14 00:00:00 SHINGLES VACCINES (1 of 2) [code = SHINGLES VACCINES (1 of 2)] [facility] Scheduled Test 2022-01-14 00:00:00 Screening for malignant neoplasm of lung (procedure) [code = 198635544] [facility] Scheduled Test 2022-01-14 00:00:00 SHINGLES VACCINES (1 of 2) [code = SHINGLES VACCINES (1 of 2)] [facility] Scheduled Test 2022-01-14 00:00:00 SHINGLES VACCINES (1 of 2) [code = SHINGLES VACCINES (1 of 2)] [facility] Scheduled Test 2022-01-14 00:00:00 SHINGLES VACCINES (1 of 2) [code = SHINGLES VACCINES (1 of 2)] [facility] Scheduled Test 2022-01-14 00:00:00 Screening for malignant neoplasm of lung (procedure) [code = 532261442] [facility] Scheduled Test 2022-01-14 00:00:00 SHINGLES VACCINES (1 of 2) [code = SHINGLES VACCINES (1 of 2)] [facility] Scheduled Test 2022-01-14 00:00:00 Screening for malignant neoplasm of lung (procedure) [code = 694816613] [facility] Scheduled Test 2022-01-14 00:00:00 SHINGLES VACCINES (1 of 2) [code = SHINGLES VACCINES (1 of 2)] [facility] Scheduled Test 2022-01-14 00:00:00 Screening for malignant neoplasm of lung (procedure) [code = 788367388] [facility] Scheduled Test 2022-01-14 00:00:00 SHINGLES VACCINES (1 of 2) [code = SHINGLES VACCINES (1 of 2)] [facility] Scheduled Test 2022-01-14 00:00:00 Screening for malignant neoplasm of lung (procedure) [code = 575701700] [facility] Scheduled Test 2022-01-14 00:00:00 SHINGLES VACCINES (1 of 2) [code = SHINGLES VACCINES (1 of 2)] [facility] Scheduled Test 2022-01-14 00:00:00 Screening for malignant neoplasm of lung (procedure) [code = 978008636] [facility] Scheduled Test 2022-01-14 00:00:00 SHINGLES VACCINES (1 of 2) [code = SHINGLES VACCINES (1 of 2)] [facility] Scheduled Test 2022-01-14 00:00:00 Screening for malignant neoplasm of lung (procedure) [code = 284670790] [facility] Scheduled Test 2022-01-14 00:00:00 SHINGLES VACCINES (1 of 2) [code = SHINGLES VACCINES (1 of 2)] [facility] Scheduled Test 2022-01-14 00:00:00 Screening for malignant neoplasm of lung (procedure) [code = 110102022] [facility] Scheduled Test 2022-01-14 00:00:00 SHINGLES VACCINES (1 of 2) [code = SHINGLES VACCINES (1 of 2)] [facility] Scheduled Test 2022-01-14 00:00:00 Screening for malignant neoplasm of lung (procedure) [code = 326470451] [facility] Scheduled Test 2022-01-14 00:00:00 SHINGLES VACCINES (1 of 2) [code = SHINGLES VACCINES (1 of 2)] [facility] Scheduled Test 2013-12-15 00:00:00 PNEUMOCOCCAL VACCINE 0-64 YRS (2 - PCV) [code = PNEUMOCOCCAL VACCINE 0-64 YRS (2 - PCV)] [facility] Scheduled Test 2013-12-15 00:00:00 PNEUMOCOCCAL VACCINE 0-64 YRS (2 - PCV) [code = PNEUMOCOCCAL VACCINE 0-64 YRS (2 - PCV)] [facility] Scheduled Test 2013-12-15 00:00:00 PNEUMOCOCCAL VACCINE 0-64 YRS (2 - PCV) [code = PNEUMOCOCCAL VACCINE 0-64 YRS (2 - PCV)] [facility] Scheduled Test 2013-12-15 00:00:00 PNEUMOCOCCAL VACCINE 0-64 YRS (2 - PCV) [code = PNEUMOCOCCAL VACCINE 0-64 YRS (2 - PCV)] [facility] Scheduled Test 2013-12-15 00:00:00 Pneumococcal Vaccine: 0-64 Years (2 - PCV) [code = Pneumococcal Vaccine: 0-64 Years (2 - PCV)] [facility] Scheduled Test 2013-12-15 00:00:00 Pneumococcal Vaccine: 0-64 Years (2 - PCV) [code = Pneumococcal Vaccine: 0-64 Years (2 - PCV)] [facility] Scheduled Test 2013-12-15 00:00:00 Pneumococcal Vaccine: 0-64 Years (2 - PCV) [code = Pneumococcal Vaccine: 0-64 Years (2 - PCV)] [facility] Scheduled Test 2013-12-15 00:00:00 Pneumococcal Vaccine: 0-64 Years (2 - PCV) [code = Pneumococcal Vaccine: 0-64 Years (2 - PCV)] [facility] Scheduled Test 2013-12-15 00:00:00 Pneumococcal Vaccine: 0-64 Years (2 - PCV) [code = Pneumococcal Vaccine: 0-64 Years (2 - PCV)] [facility] Scheduled Test 2013-12-15 00:00:00 Pneumococcal Vaccine: 0-64 Years (2 - PCV) [code = Pneumococcal Vaccine: 0-64 Years (2 - PCV)] [facility] Scheduled Test 2013-12-15 00:00:00 Pneumococcal Vaccine: 0-64 Years (2 - PCV) [code = Pneumococcal Vaccine: 0-64 Years (2 - PCV)] [facility] Scheduled Test 2013-12-15 00:00:00 Pneumococcal Vaccine: 0-64 Years (2 - PCV) [code = Pneumococcal Vaccine: 0-64 Years (2 - PCV)] [facility] Scheduled Test 2013-12-15 00:00:00 Pneumococcal Vaccine: 0-64 Years (2 - PCV) [code = Pneumococcal Vaccine: 0-64 Years (2 - PCV)] [facility] Scheduled Test 2013-12-15 00:00:00 Pneumococcal Vaccine: 0-64 Years (2 - PCV) [code = Pneumococcal Vaccine: 0-64 Years (2 - PCV)] [facility] Scheduled Test 2013-12-15 00:00:00 Pneumococcal Vaccine: 0-64 Years (2 - PCV) [code = Pneumococcal Vaccine: 0-64 Years (2 - PCV)] [facility] Scheduled Test 2013-12-15 00:00:00 Pneumococcal Vaccine: 0-64 Years (2 - PCV) [code = Pneumococcal Vaccine: 0-64 Years (2 - PCV)] [facility] Scheduled Test 1993-01-14 00:00:00 Screening for malignant neoplasm of cervix (procedure) [code = 377533723] [facility] Scheduled Test 1993-01-14 00:00:00 Screening for malignant neoplasm of cervix (procedure) [code = 183505744] [facility] Scheduled Test 1993-01-14 00:00:00 Screening for malignant neoplasm of cervix (procedure) [code = 217594354] [facility] Scheduled Test 1993-01-14 00:00:00 Screening for malignant neoplasm of cervix (procedure) [code = 402442114] [facility] Scheduled Test 1993-01-14 00:00:00 Screening for malignant neoplasm of cervix (procedure) [code = 111206296] [facility] Scheduled Test 1993-01-14 00:00:00 Screening for malignant neoplasm of cervix (procedure) [code = 597215746] [facility] Scheduled Test 1993-01-14 00:00:00 Screening for malignant neoplasm of cervix (procedure) [code = 277273404] [facility] Scheduled Test 1993-01-14 00:00:00 Screening for malignant neoplasm of cervix (procedure) [code = 688954698] [facility] Scheduled Test 1993-01-14 00:00:00 Screening for malignant neoplasm of cervix (procedure) [code = 888369929] [facility] Scheduled Test 1993-01-14 00:00:00 Screening for malignant neoplasm of cervix (procedure) [code = 284107739] [facility] Scheduled Test 1993-01-14 00:00:00 Screening for malignant neoplasm of cervix (procedure) [code = 528489004] [facility] Scheduled Test 1993-01-14 00:00:00 Screening for malignant neoplasm of cervix (procedure) [code = 694103558] [facility] Scheduled Test 1993-01-14 00:00:00 Screening for malignant neoplasm of cervix (procedure) [code = 736718392] [facility] Scheduled Test 1993-01-14 00:00:00 Screening for malignant neoplasm of cervix (procedure) [code = 911513379] [facility] Scheduled Test 1993-01-14 00:00:00 Screening for malignant neoplasm of cervix (procedure) [code = 271039439] [facility] Scheduled Test 1993-01-14 00:00:00 Screening for malignant neoplasm of cervix (procedure) [code = 748388692] [facility] Scheduled Test 1993-01-14 00:00:00 Screening for malignant neoplasm of cervix (procedure) [code = 499145393] [facility] Scheduled Test 1993-01-14 00:00:00 Screening for malignant neoplasm of cervix (procedure) [code = 766192225] [facility] Scheduled Test 1993-01-14 00:00:00 Screening for malignant neoplasm of cervix (procedure) [code = 159063508] [facility] Scheduled Test 1993-01-14 00:00:00 Screening for malignant neoplasm of cervix (procedure) [code = 011819271] [facility] Scheduled Test 1993-01-14 00:00:00 Screening for malignant neoplasm of cervix (procedure) [code = 354333954] [facility] Scheduled Test 1993-01-14 00:00:00 Screening for malignant neoplasm of cervix (procedure) [code = 546457707] [facility] Scheduled Test 1993-01-14 00:00:00 Screening for malignant neoplasm of cervix (procedure) [code = 310853410] [facility] Scheduled Test 1993-01-14 00:00:00 Screening for malignant neoplasm of cervix (procedure) [code = 181328329] [facility] Scheduled Test 1993-01-14 00:00:00 Screening for malignant neoplasm of cervix (procedure) [code = 920110378] [facility] Scheduled Test 1993-01-14 00:00:00 Screening for malignant neoplasm of cervix (procedure) [code = 849666805] [facility] Scheduled Test 1993-01-14 00:00:00 Screening for malignant neoplasm of cervix (procedure) [code = 572803061] [facility] Scheduled Test 1993-01-14 00:00:00 Screening for malignant neoplasm of cervix (procedure) [code = 115440669] [facility] Scheduled Test 1993-01-14 00:00:00 Screening for malignant neoplasm of cervix (procedure) [code = 099960549] [facility] Scheduled Test 1993-01-14 00:00:00 Screening for malignant neoplasm of cervix (procedure) [code = 003143625] [facility] Scheduled Test 1993-01-14 00:00:00 Screening for malignant neoplasm of cervix (procedure) [code = 926959450] [facility] Scheduled Test 1993-01-14 00:00:00 Screening for malignant neoplasm of cervix (procedure) [code = 497994379] [facility] Scheduled Test 1993-01-14 00:00:00 Screening for malignant neoplasm of cervix (procedure) [code = 077810843] [facility] Scheduled Test 1993-01-14 00:00:00 Screening for malignant neoplasm of cervix (procedure) [code = 882681543] [facility] Scheduled Test 1993-01-14 00:00:00 Screening for malignant neoplasm of cervix (procedure) [code = [id number]] [facility] Scheduled Test 1993-01-14 00:00:00 Screening for malignant neoplasm of cervix (procedure) [code = [id number]] [facility] Scheduled Test 1993-01-14 00:00:00 Screening for malignant neoplasm of cervix (procedure) [code = [id number]] [facility] Scheduled Test 1993-01-14 00:00:00 Screening for malignant neoplasm of cervix (procedure) [code = [id number]] [facility] Scheduled Test 1993-01-14 00:00:00 Screening for malignant neoplasm of cervix (procedure) [code = 191958880] [facility] Scheduled Test 1993-01-14 00:00:00 Screening for malignant neoplasm of cervix (procedure) [code = 300519491] [facility] Scheduled Test 1991-01-14 00:00:00 DTAP/TDAP/TD VACCINES (1 - Tdap) [code = DTAP/TDAP/TD VACCINES (1 - Tdap)] [facility] Scheduled Test 1991-01-14 00:00:00 DTAP/TDAP/TD VACCINES (1 - Tdap) [code = DTAP/TDAP/TD VACCINES (1 - Tdap)] [facility] Scheduled Test 1991-01-14 00:00:00 DTAP/TDAP/TD VACCINES (1 - Tdap) [code = DTAP/TDAP/TD VACCINES (1 - Tdap)] [facility] Scheduled Test 1991-01-14 00:00:00 DTAP/TDAP/TD VACCINES (1 - Tdap) [code = DTAP/TDAP/TD VACCINES (1 - Tdap)] [facility] Scheduled Test 1991-01-14 00:00:00 DTAP/TDAP/TD VACCINES (1 - Tdap) [code = DTAP/TDAP/TD VACCINES (1 - Tdap)] [facility] Scheduled Test 1991-01-14 00:00:00 DTAP/TDAP/TD VACCINES (1 - Tdap) [code = DTAP/TDAP/TD VACCINES (1 - Tdap)] [facility] Scheduled Test 1991-01-14 00:00:00 DTAP/TDAP/TD VACCINES (1 - Tdap) [code = DTAP/TDAP/TD VACCINES (1 - Tdap)] [facility] Scheduled Test 1991-01-14 00:00:00 DTAP/TDAP/TD VACCINES (1 - Tdap) [code = DTAP/TDAP/TD VACCINES (1 - Tdap)] [facility] Scheduled Test 1991-01-14 00:00:00 DTAP/TDAP/TD VACCINES (1 - Tdap) [code = DTAP/TDAP/TD VACCINES (1 - Tdap)] [facility] Scheduled Test 1991-01-14 00:00:00 DTAP/TDAP/TD VACCINES (1 - Tdap) [code = DTAP/TDAP/TD VACCINES (1 - Tdap)] [facility] Scheduled Test 1991-01-14 00:00:00 DTAP/TDAP/TD VACCINES (1 - Tdap) [code = DTAP/TDAP/TD VACCINES (1 - Tdap)] [facility] Scheduled Test 1991-01-14 00:00:00 DTAP/TDAP/TD VACCINES (1 - Tdap) [code = DTAP/TDAP/TD VACCINES (1 - Tdap)] [facility] Sched[facility] Test 1991-01-14 00:00:00 DTAP/TDAP/TD VACCINES (1 - Tdap) [code = DTAP/TDAP/TD VACCINES (1 - Tdap)] [facility] Sched[facility] Test 1991-01-14 00:00:00 DTAP/TDAP/TD VACCINES (1 - Tdap) [code = DTAP/TDAP/TD VACCINES (1 - Tdap)] [facility] Scheduled Test 1991-01-14 00:00:00 DTAP/TDAP/TD VACCINES (1 - Tdap) [code = DTAP/TDAP/TD VACCINES (1 - Tdap)] [facility] Sched[facility] Test 1991-01-14 00:00:00 DTAP/TDAP/TD VACCINES (1 - Tdap) [code = DTAP/TDAP/TD VACCINES (1 - Tdap)] [facility] Scheduled Test 1991-01-14 00:00:00 DTAP/TDAP/TD VACCINES (1 - Tdap) [code = DTAP/TDAP/TD VACCINES (1 - Tdap)] [facility] Scheduled Test 1991-01-14 00:00:00 DTAP/TDAP/TD VACCINES (1 - Tdap) [code = DTAP/TDAP/TD VACCINES (1 - Tdap)] [facility] Sched[facility] Test 1991-01-14 00:00:00 DTAP/TDAP/TD VACCINES (1 - Tdap) [code = DTAP/TDAP/TD VACCINES (1 - Tdap)] [facility] Sched[facility] Test 1991-01-14 00:00:00 DTAP/TDAP/TD VACCINES (1 - Tdap) [code = DTAP/TDAP/TD VACCINES (1 - Tdap)] [facility] Sched[facility] Test 1991-01-14 00:00:00 DTAP/TDAP/TD VACCINES (1 - Tdap) [code = DTAP/TDAP/TD VACCINES (1 - Tdap)] [facility] Sched[facility] Test 1991-01-14 00:00:00 DTAP/TDAP/TD VACCINES (1 - Tdap) [code = DTAP/TDAP/TD VACCINES (1 - Tdap)] [facility] Sched[facility] Test 1991-01-14 00:00:00 DTAP/TDAP/TD VACCINES (1 - Tdap) [code = DTAP/TDAP/TD VACCINES (1 - Tdap)] [facility] Scheduled Test 1991-01-14 00:00:00 DTAP/TDAP/TD VACCINES (1 - Tdap) [code = DTAP/TDAP/TD VACCINES (1 - Tdap)] [facility] Sched[facility] Test 1991-01-14 00:00:00 DTAP/TDAP/TD VACCINES (1 - Tdap) [code = DTAP/TDAP/TD VACCINES (1 - Tdap)] [facility] Sched[facility] Test 1991-01-14 00:00:00 DTAP/TDAP/TD VACCINES (1 - Tdap) [code = DTAP/TDAP/TD VACCINES (1 - Tdap)] [facility] Scheduled Test 1991-01-14 00:00:00 DTAP/TDAP/TD VACCINES (1 - Tdap) [code = DTAP/TDAP/TD VACCINES (1 - Tdap)] [facility] Sched[facility] Test 1991-01-14 00:00:00 DTAP/TDAP/TD VACCINES (1 - Tdap) [code = DTAP/TDAP/TD VACCINES (1 - Tdap)] [facility] Scheduled Test 1991-01-14 00:00:00 DTAP/TDAP/TD VACCINES (1 - Tdap) [code = DTAP/TDAP/TD VACCINES (1 - Tdap)] [facility] Scheduled Test 1991-01-14 00:00:00 DTAP/TDAP/TD VACCINES (1 - Tdap) [code = DTAP/TDAP/TD VACCINES (1 - Tdap)] [facility] Sched[facility] Test 1991-01-14 00:00:00 DTAP/TDAP/TD VACCINES (1 - Tdap) [code = DTAP/TDAP/TD VACCINES (1 - Tdap)] [facility] Sched[facility] Test 1991-01-14 00:00:00 DTAP/TDAP/TD VACCINES (1 - Tdap) [code = DTAP/TDAP/TD VACCINES (1 - Tdap)] [facility] Sched[facility] Test 1991-01-14 00:00:00 DTAP/TDAP/TD VACCINES (1 - Tdap) [code = DTAP/TDAP/TD VACCINES (1 - Tdap)] [facility] Sched[facility] Test 1991-01-14 00:00:00 DTAP/TDAP/TD VACCINES (1 - Tdap) [code = DTAP/TDAP/TD VACCINES (1 - Tdap)] [facility] Sched[facility] Test 1991-01-14 00:00:00 DTAP/TDAP/TD VACCINES (1 - Tdap) [code = DTAP/TDAP/TD VACCINES (1 - Tdap)] [facility] Scheduled Test 1991-01-14 00:00:00 DTAP/TDAP/TD VACCINES (1 - Tdap) [code = DTAP/TDAP/TD VACCINES (1 - Tdap)] [facility] Sched[facility] Test 1991-01-14 00:00:00 DTAP/TDAP/TD VACCINES (1 - Tdap) [code = DTAP/TDAP/TD VACCINES (1 - Tdap)] [facility] Sched[facility] Test 1991-01-14 00:00:00 DTAP/TDAP/TD VACCINES (1 - Tdap) [code = DTAP/TDAP/TD VACCINES (1 - Tdap)] [facility] Sched[facility] Test 1991-01-14 00:00:00 DTAP/TDAP/TD VACCINES (1 - Tdap) [code = DTAP/TDAP/TD VACCINES (1 - Tdap)] [facility] Sched[facility] Test 1991-01-14 00:00:00 DTAP/TDAP/TD VACCINES (1 - Tdap) [code = DTAP/TDAP/TD VACCINES (1 - Tdap)] [facility] Sched[facility] Test 1990-01-14 00:00:00 HEPATITIS C SCREENING [code = HEPATITIS C SCREENING] [facility] Test 1990-01-14 00:00:00 HEPATITIS C SCREENING [code = HEPATITIS C SCREENING] [facility] Sched[facility] Test 1990-01-14 00:00:00 HEPATITIS C SCREENING [code = HEPATITIS C SCREENING] [facility] Sched[facility] Test 1990-01-14 00:00:00 HEPATITIS C SCREENING [code = HEPATITIS C SCREENING] [facility] Sched[facility] Test 1990-01-14 00:00:00 HEPATITIS C SCREENING [code = HEPATITIS C SCREENING] [facility] Sched[facility] Test 1990-01-14 00:00:00 HEPATITIS C SCREENING [code = HEPATITIS C SCREENING] [facility] Sched[facility] Test 1990-01-14 00:00:00 HEPATITIS C SCREENING [code = HEPATITIS C SCREENING] [facility] Test 1990-01-14 00:00:00 HEPATITIS C SCREENING [code = HEPATITIS C SCREENING] [facility] Sched[facility] Test 1990-01-14 00:00:00 HEPATITIS C SCREENING [code = HEPATITIS C SCREENING] [facility] Sched[facility] Test 1990-01-14 00:00:00 HEPATITIS C SCREENING [code = HEPATITIS C SCREENING] [facility] Sched[facility] Test 1990-01-14 00:00:00 HEPATITIS C SCREENING [code = HEPATITIS C SCREENING] [facility] Sched[facility] Test 1990-01-14 00:00:00 HEPATITIS C SCREENING [code = HEPATITIS C SCREENING] [facility] Scheduled Test 1990-01-14 00:00:00 HEPATITIS C SCREENING [code = HEPATITIS C SCREENING] [facility] Sched[facility] Test 1990-01-14 00:00:00 HEPATITIS C SCREENING [code = HEPATITIS C SCREENING] [facility] Sched[facility] Test 1990-01-14 00:00:00 HEPATITIS C SCREENING [code = HEPATITIS C SCREENING] [facility] Sched[facility] Test 1990-01-14 00:00:00 HEPATITIS C SCREENING [code = HEPATITIS C SCREENING] [facility] Sched[facility] Test 1990-01-14 00:00:00 HEPATITIS C SCREENING [code = HEPATITIS C SCREENING] [facility] Sched[facility] Test 1990-01-14 00:00:00 HEPATITIS C SCREENING [code = HEPATITIS C SCREENING] [facility] Scheduled Test 1990-01-14 00:00:00 HEPATITIS C SCREENING [code = HEPATITIS C SCREENING] [facility] Scheduled Test 1990-01-14 00:00:00 HEPATITIS C SCREENING [code = HEPATITIS C SCREENING] [facility] Sched[facility] Test 1990-01-14 00:00:00 HEPATITIS C SCREENING [code = HEPATITIS C SCREENING] [facility] Scheduled Test 1990-01-14 00:00:00 HEPATITIS C SCREENING [code = HEPATITIS C SCREENING] [facility] Scheduled Test 1990-01-14 00:00:00 HEPATITIS C SCREENING [code = HEPATITIS C SCREENING] [facility] Scheduled Test 1990-01-14 00:00:00 HEPATITIS C SCREENING [code = HEPATITIS C SCREENING] [facility] Scheduled Test 1990-01-14 00:00:00 HEPATITIS C SCREENING [code = HEPATITIS C SCREENING] [facility] Scheduled Test 1990-01-14 00:00:00 HEPATITIS C SCREENING [code = HEPATITIS C SCREENING] [facility] Sched[facility] Test 1990-01-14 00:00:00 HEPATITIS C SCREENING [code = HEPATITIS C SCREENING] [facility] Scheduled Test 1990-01-14 00:00:00 HEPATITIS C SCREENING [code = HEPATITIS C SCREENING] [facility] Sched[facility] Test 1990-01-14 00:00:00 HEPATITIS C SCREENING [code = HEPATITIS C SCREENING] [facility] Scheduled Test 1990-01-14 00:00:00 HEPATITIS C SCREENING [code = HEPATITIS C SCREENING] [facility] Sched[facility] Test 1990-01-14 00:00:00 HEPATITIS C SCREENING [code = HEPATITIS C SCREENING] [facility] Scheduled Test 1990-01-14 00:00:00 HEPATITIS C SCREENING [code = HEPATITIS C SCREENING] [facility] Sched[facility] Test 1990-01-14 00:00:00 HEPATITIS C SCREENING [code = HEPATITIS C SCREENING] [facility] Scheduled Test 1990-01-14 00:00:00 HEPATITIS C SCREENING [code = HEPATITIS C SCREENING] [facility] Scheduled Test 1990-01-14 00:00:00 HEPATITIS C SCREENING [code = HEPATITIS C SCREENING] [facility] Scheduled Test 1990-01-14 00:00:00 HEPATITIS C SCREENING [code = HEPATITIS C SCREENING] [facility] Sched[facility] Test 1990-01-14 00:00:00 HEPATITIS C SCREENING [code = HEPATITIS C SCREENING] [facility] Scheduled Test 1990-01-14 00:00:00 HEPATITIS C SCREENING [code = HEPATITIS C SCREENING] [facility] Scheduled Test 1990-01-14 00:00:00 HEPATITIS C SCREENING [code = HEPATITIS C SCREENING] [facility] Sched[facility] Test 1990-01-14 00:00:00 HEPATITIS C SCREENING [code = HEPATITIS C SCREENING] [facility] Scheduled Test 1987-01-14 00:00:00 Human immunodeficiency virus screening (procedure) [code = [id number]] [facility] Sched[facility] Test 1987-01-14 00:00:00 Human immunodeficiency virus screening (procedure) [code = 470608173] [facility] Scheduled Test 1984 00:00:00 Tobacco Cessation Counseling and Screening (12+) [code = Tobacco Cessation Counseling and Screening (12+)] [facility] Scheduled Test 1984 00:00:00 Tobacco Cessation Counseling and Screening (12+) [code = Tobacco Cessation Counseling and Screening (12+)] [facility] Scheduled Test 1984 00:00:00 Tobacco Cessation Counseling and Screening (12+) [code = Tobacco Cessation Counseling and Screening (12+)] [facility] Scheduled Test 1984 00:00:00 Tobacco Cessation Counseling and Screening (12+) [code = Tobacco Cessation Counseling and Screening (12+)] [facility] Scheduled Test 1984 00:00:00 Tobacco Cessation Counseling and Screening (12+) [code = Tobacco Cessation Counseling and Screening (12+)] [facility] Scheduled Test 1984 00:00:00 Tobacco Cessation Counseling and Screening (12+) [code = Tobacco Cessation Counseling and Screening (12+)] [facility] Scheduled Test 1984 00:00:00 Tobacco Cessation Counseling and Screening (12+) [code = Tobacco Cessation Counseling and Screening (12+)] [facility] Scheduled Test 1984 00:00:00 Tobacco Cessation Counseling and Screening (12+) [code = Tobacco Cessation Counseling and Screening (12+)] [facility] Scheduled Test 1984 00:00:00 Tobacco Cessation Counseling and Screening (12+) [code = Tobacco Cessation Counseling and Screening (12+)] [facility] Scheduled Test 1984 00:00:00 Tobacco Cessation Counseling and Screening (12+) [code = Tobacco Cessation Counseling and Screening (12+)] [facility] Scheduled Test 1984 00:00:00 Tobacco Cessation Counseling and Screening (12+) [code = Tobacco Cessation Counseling and Screening (12+)] [facility] Scheduled Test 1984 00:00:00 Tobacco Cessation Counseling and Screening (12+) [code = Tobacco Cessation Counseling and Screening (12+)] [facility] Scheduled Test 1984 00:00:00 Tobacco Cessation Counseling and Screening (12+) [code = Tobacco Cessation Counseling and Screening (12+)] [facility] Scheduled Test 1984 00:00:00 Tobacco Cessation Counseling and Screening (12+) [code = Tobacco Cessation Counseling and Screening (12+)] [facility] Scheduled Test 1984 00:00:00 Tobacco Cessation Counseling and Screening (12+) [code = Tobacco Cessation Counseling and Screening (12+)] [facility] Scheduled Test 1984 00:00:00 Tobacco Cessation Counseling and Screening (12+) [code = Tobacco Cessation Counseling and Screening (12+)] [facility] Scheduled Test 1984 00:00:00 Tobacco Cessation Counseling and Screening (12+) [code = Tobacco Cessation Counseling and Screening (12+)] [facility] Scheduled Test 1984 00:00:00 Tobacco Cessation Counseling and Screening (12+) [code = Tobacco Cessation Counseling and Screening (12+)] [facility] Scheduled Test 1984 00:00:00 Tobacco Cessation Counseling and Screening (12+) [code = Tobacco Cessation Counseling and Screening (12+)] [facility] Scheduled Test 1984 00:00:00 Tobacco Cessation Counseling and Screening (12+) [code = Tobacco Cessation Counseling and Screening (12+)] [facility] Scheduled Test 1984 00:00:00 Tobacco Cessation Counseling and Screening (12+) [code = Tobacco Cessation Counseling and Screening (12+)] [facility] Scheduled Test 1984 00:00:00 Tobacco Cessation Counseling and Screening (12+) [code = Tobacco Cessation Counseling and Screening (12+)] [facility] Scheduled Test 1984 00:00:00 Tobacco Cessation Counseling and Screening (12+) [code = Tobacco Cessation Counseling and Screening (12+)] [facility] Scheduled Test 1972 00:00:00 Screening for malignant neoplasm of breast (procedure) [code = 509865926] [facility] Sched[facility] Test 1972 00:00:00 CT Colonography (combo) [code = CT Colonography (combo)] [facility] Sched[facility] Test 1972 00:00:00 Screening for malignant neoplasm of colon (procedure) [code = 046729277] [facility] Sched[facility] Test 1972 00:00:00 Screening for malignant neoplasm of colon (procedure) [code = 747684364] [facility] Scheduled Test 1972 00:00:00 Screening for malignant neoplasm of colon (procedure) [code = 997652946] [facility] Sched[facility] Test 1972 00:00:00 Screening for malignant neoplasm of colon (procedure) [code = 854087840] [facility] Sched[facility] Test 1972 00:00:00 Sigmoidoscopy [code = Sigmoidoscopy] [facility] Scheduled Test 1972 00:00:00 Screening for malignant neoplasm of breast (procedure) [code = 735174812] [facility] Scheduled Test 1972 00:00:00 CT Colonography (combo) [code = CT Colonography (combo)] [facility] Sched[facility] Test 1972 00:00:00 Screening for malignant neoplasm of colon (procedure) [code = 105160757] [facility] Sched[facility] Test 1972 00:00:00 Screening for malignant neoplasm of colon (procedure) [code = 802186174] [facility] Sched[facility] Test 1972 00:00:00 Screening for malignant neoplasm of colon (procedure) [code = 901500343] [facility] Sched[facility] Test 1972 00:00:00 Screening for malignant neoplasm of colon (procedure) [code = 027962048] [facility] Sched[facility] Test 1972 00:00:00 Sigmoidoscopy [code = Sigmoidoscopy] [facility] Scheduled Test 1972 00:00:00 Screening for malignant neoplasm of breast (procedure) [code = 232222897] [facility] Scheduled Test 1972 00:00:00 CT Colonography (combo) [code = CT Colonography (combo)] [facility] Sched[facility] Test 1972 00:00:00 Screening for malignant neoplasm of colon (procedure) [code = 434321162] [facility] Sched[facility] Test 1972 00:00:00 Screening for malignant neoplasm of colon (procedure) [code = 141837401] [facility] Scheduled Test 1972 00:00:00 Screening for malignant neoplasm of colon (procedure) [code = 604528200] [facility] Sched[facility] Test 1972 00:00:00 Screening for malignant neoplasm of colon (procedure) [code = 419690014] [facility] Scheduled Test 1972 00:00:00 Sigmoidoscopy [code = Sigmoidoscopy] [facility] Scheduled Test 1972 00:00:00 Screening for malignant neoplasm of breast (procedure) [code = 614599514] [facility] Sched[facility] Test 1972 00:00:00 CT Colonography (combo) [code = CT Colonography (combo)] [facility] Sched[facility] Test 1972 00:00:00 Screening for malignant neoplasm of colon (procedure) [code = 803174013] [facility] Sched[facility] Test 1972 00:00:00 Screening for malignant neoplasm of colon (procedure) [code = 616874584] [facility] Sched[facility] Test 1972 00:00:00 Screening for malignant neoplasm of colon (procedure) [code = 720448010] [facility] Sched[facility] Test 1972 00:00:00 Screening for malignant neoplasm of colon (procedure) [code = 667179552] [facility] Sched[facility] Test 1972 00:00:00 Sigmoidoscopy [code = Sigmoidoscopy] [facility] Sched[facility] Test 1972 00:00:00 Screening for malignant neoplasm of breast (procedure) [code = 044316967] [facility] Scheduled Test 1972 00:00:00 CT Colonography (combo) [code = CT Colonography (combo)] [facility] Sched[facility] Test 1972 00:00:00 Screening for malignant neoplasm of colon (procedure) [code = 230991605] [facility] Sched[facility] Test 1972 00:00:00 Screening for malignant neoplasm of colon (procedure) [code = 352493425] [facility] Sched[facility] Test 1972 00:00:00 Screening for malignant neoplasm of colon (procedure) [code = 289799515] [facility] Sched[facility] Test 1972 00:00:00 Screening for malignant neoplasm of colon (procedure) [code = 390734673] [facility] Sched[facility] Test 1972 00:00:00 Sigmoidoscopy [code = Sigmoidoscopy] [facility] Sched[facility] Test 1972 00:00:00 Screening for malignant neoplasm of breast (procedure) [code = 994902389] [facility] Sched[facility] Test 1972 00:00:00 CT Colonography (combo) [code = CT Colonography (combo)] [facility] Sched[facility] Test 1972 00:00:00 Screening for malignant neoplasm of colon (procedure) [code = 998996267] [facility] Sched[facility] Test 1972 00:00:00 Screening for malignant neoplasm of colon (procedure) [code = 171615846] [facility] Sched[facility] Test 1972 00:00:00 Screening for malignant neoplasm of colon (procedure) [code = 035679695] [facility] Sched[facility] Test 1972 00:00:00 Screening for malignant neoplasm of colon (procedure) [code = 529396839] [facility] Sched[facility] Test 1972 00:00:00 Sigmoidoscopy [code = Sigmoidoscopy] [facility] Sched[facility] Test 1972 00:00:00 Screening for malignant neoplasm of breast (procedure) [code = 304027179] [facility] Scheduled Test 1972 00:00:00 CT Colonography (combo) [code = CT Colonography (combo)] [facility] Sched[facility] Test 1972 00:00:00 Screening for malignant neoplasm of colon (procedure) [code = 732834822] [facility] Sched[facility] Test 1972 00:00:00 Screening for malignant neoplasm of colon (procedure) [code = 795392030] [facility] Scheduled Test 1972 00:00:00 Screening for malignant neoplasm of colon (procedure) [code = 518197151] [facility] Sched[facility] Test 1972 00:00:00 Screening for malignant neoplasm of colon (procedure) [code = 746770299] [facility] Sched[facility] Test 1972 00:00:00 Sigmoidoscopy [code = Sigmoidoscopy] [facility] Sched[facility] Test 1972 00:00:00 Screening for malignant neoplasm of breast (procedure) [code = 020922544] [facility] Sched[facility] Test 1972 00:00:00 CT Colonography (combo) [code = CT Colonography (combo)] [facility] Sched[facility] Test 1972 00:00:00 Screening for malignant neoplasm of colon (procedure) [code = 733244570] [facility] Sched[facility] Test 1972 00:00:00 Screening for malignant neoplasm of colon (procedure) [code = 464527393] [facility] Scheduled Test 1972 00:00:00 Screening for malignant neoplasm of colon (procedure) [code = 632241644] [facility] Scheduled Test 1972 00:00:00 Screening for malignant neoplasm of colon (procedure) [code = 471123556] [facility] Sched[facility] Test 1972 00:00:00 Sigmoidoscopy [code = Sigmoidoscopy] [facility] Sched[facility] Test 1972 00:00:00 Screening for malignant neoplasm of breast (procedure) [code = 029125448] [facility] Scheduled Test 1972 00:00:00 CT Colonography (combo) [code = CT Colonography (combo)] [facility] Sched[facility] Test 1972 00:00:00 Screening for malignant neoplasm of colon (procedure) [code = 602174342] [facility] Sched[facility] Test 1972 00:00:00 Screening for malignant neoplasm of colon (procedure) [code = 547255567] [facility] Sched[facility] Test 1972 00:00:00 Screening for malignant neoplasm of colon (procedure) [code = 668704316] [facility] Scheduled Test 1972 00:00:00 Screening for malignant neoplasm of colon (procedure) [code = 346075456] [facility] Sched[facility] Test 1972 00:00:00 Sigmoidoscopy [code = Sigmoidoscopy] [facility] Sched[facility] Test 1972 00:00:00 Screening for malignant neoplasm of breast (procedure) [code = 505098714] [facility] Scheduled Test 1972 00:00:00 CT Colonography (combo) [code = CT Colonography (combo)] [facility] Scheduled Test 1972 00:00:00 Screening for malignant neoplasm of colon (procedure) [code = [id number]] [facility] Scheduled Test 1972 00:00:00 Screening for malignant neoplasm of colon (procedure) [code = 460747293] [facility] Sched[facility] Test 1972 00:00:00 Screening for malignant neoplasm of colon (procedure) [code = 061071719] [facility] Sched[facility] Test 1972 00:00:00 Screening for malignant neoplasm of colon (procedure) [code = 415167829] [facility] Sched[facility] Test 1972 00:00:00 Sigmoidoscopy [code = Sigmoidoscopy] [facility] Sched[facility] Test 1972 00:00:00 Screening for malignant neoplasm of breast (procedure) [code = 201611140] [facility] Sched[facility] Test 1972 00:00:00 CT Colonography (combo) [code = CT Colonography (combo)] [facility] Sched[facility] Test 1972 00:00:00 Screening for malignant neoplasm of colon (procedure) [code = 300494122] [facility] Sched[facility] Test 1972 00:00:00 Screening for malignant neoplasm of colon (procedure) [code = 636092162] [facility] Sched[facility] Test 1972 00:00:00 Screening for malignant neoplasm of colon (procedure) [code = 600713477] [facility] Sched[facility] Test 1972 00:00:00 Screening for malignant neoplasm of colon (procedure) [code = 318289504] [facility] Test 1972 00:00:00 Sigmoidoscopy [code = Sigmoidoscopy] [facility] Sched[facility] Test 1972 00:00:00 Screening for malignant neoplasm of breast (procedure) [code = 400281570] [facility] Sched[facility] Test 1972 00:00:00 CT Colonography (combo) [code = CT Colonography (combo)] [facility] Test 1972 00:00:00 Screening for malignant neoplasm of colon (procedure) [code = 057627802] [facility] Test 1972 00:00:00 Screening for malignant neoplasm of colon (procedure) [code = 928115900] [facility] Test 1972 00:00:00 Screening for malignant neoplasm of colon (procedure) [code = 560500712] [facility] Sched[facility] Test 1972 00:00:00 Screening for malignant neoplasm of colon (procedure) [code = 232564833] [facility] Sched[facility] Test 1972 00:00:00 Sigmoidoscopy [code = Sigmoidoscopy] [facility] Sched[facility] Test 1972 00:00:00 Screening for malignant neoplasm of breast (procedure) [code = 643470176] [facility] Sched[facility] Test 1972 00:00:00 CT Colonography (combo) [code = CT Colonography (combo)] [facility] Sched[facility] Test 1972 00:00:00 Screening for malignant neoplasm of colon (procedure) [code = 840753503] [facility] Sched[facility] Test 1972 00:00:00 Screening for malignant neoplasm of colon (procedure) [code = 546454364] [facility] Sched[facility] Test 1972 00:00:00 Screening for malignant neoplasm of colon (procedure) [code = 348401403] [facility] Sched[facility] Test 1972 00:00:00 Screening for malignant neoplasm of colon (procedure) [code = 632085522] [facility] Sched[facility] Test 1972 00:00:00 Sigmoidoscopy [code = Sigmoidoscopy] [facility] Sched[facility] Test 1972 00:00:00 Screening for malignant neoplasm of breast (procedure) [code = 428504771] [facility] Sched[facility] Test 1972 00:00:00 CT Colonography (combo) [code = CT Colonography (combo)] [facility] Test 1972 00:00:00 Screening for malignant neoplasm of colon (procedure) [code = 396292649] [facility] Test 1972 00:00:00 Screening for malignant neoplasm of colon (procedure) [code = 014359268] [facility] Test 1972 00:00:00 Screening for malignant neoplasm of colon (procedure) [code = 815213817] [facility] Test 1972 00:00:00 Screening for malignant neoplasm of colon (procedure) [code = 839032139] [facility] Test 1972 00:00:00 Sigmoidoscopy [code = Sigmoidoscopy] [facility] Sched[facility] Test 1972 00:00:00 Screening for malignant neoplasm of breast (procedure) [code = 958449408] [facility] Sched[facility] Test 1972 00:00:00 CT Colonography (combo) [code = CT Colonography (combo)] [facility] Test 1972 00:00:00 Screening for malignant neoplasm of colon (procedure) [code = 156444535] [facility] Sched[facility] Test 1972 00:00:00 Screening for malignant neoplasm of colon (procedure) [code = 662493637] [facility] Test 1972 00:00:00 Screening for malignant neoplasm of colon (procedure) [code = 553010728] [facility] Test 1972 00:00:00 Screening for malignant neoplasm of colon (procedure) [code = 621772485] [facility] Test 1972 00:00:00 Sigmoidoscopy [code = Sigmoidoscopy] [facility] Test 1972 00:00:00 Screening for malignant neoplasm of breast (procedure) [code = 698176956] [facility] Sched[facility] Test 1972 00:00:00 CT Colonography (combo) [code = CT Colonography (combo)] [facility] Test 1972 00:00:00 Screening for malignant neoplasm of colon (procedure) [code = 613613234] [facility] Test 1972 00:00:00 Screening for malignant neoplasm of colon (procedure) [code = 486352348] [facility] Test 1972 00:00:00 Screening for malignant neoplasm of colon (procedure) [code = 468891806] [facility] 1972 00:00:00 Screening for malignant neoplasm of colon (procedure) [code = 637395032] [facility] Test 1972 00:00:00 Sigmoidoscopy [code = Sigmoidoscopy] [facility] Test 1972 00:00:00 Screening for malignant neoplasm of breast (procedure) [code = 761498606] [facility] Test 1972 00:00:00 CT Colonography (combo) [code = CT Colonography (combo)] [facility] 1972 00:00:00 Screening for malignant neoplasm of colon (procedure) [code = 421841023] [facility] Test 1972 00:00:00 Screening for malignant neoplasm of colon (procedure) [code = 850466413] [facility] Test 1972 00:00:00 Screening for malignant neoplasm of colon (procedure) [code = 508880874] [facility] Test 1972 00:00:00 Screening for malignant neoplasm of colon (procedure) [code = 365661589] [facility] Test 1972 00:00:00 Sigmoidoscopy [code = Sigmoidoscopy] [facility] Test 1972 00:00:00 Screening for malignant neoplasm of breast (procedure) [code = 032214240] [facility] Test 1972 00:00:00 CT Colonography (combo) [code = CT Colonography (combo)] [facility] 1972 00:00:00 Screening for malignant neoplasm of breast (procedure) [code = 019698670] [facility] Test 1972 00:00:00 CT Colonography (combo) [code = CT Colonography (combo)] [facility] 1972 00:00:00 Screening for malignant neoplasm of colon (procedure) [code = 051132601] [facility] Test 1972 00:00:00 Screening for malignant neoplasm of colon (procedure) [code = 488661214] [facility] 1972 00:00:00 Screening for malignant neoplasm of colon (procedure) [code = 497850059] [facility] 1972 00:00:00 Screening for malignant neoplasm of colon (procedure) [code = 295397850] [facility] Test 1972 00:00:00 Sigmoidoscopy [code = Sigmoidoscopy] [facility] 1972 00:00:00 Screening for malignant neoplasm of colon (procedure) [code = 236507368] [facility] Test 1972 00:00:00 Screening for malignant neoplasm of colon (procedure) [code = 632513383] [facility] 1972 00:00:00 Screening for malignant neoplasm of colon (procedure) [code = 597208458] [facility] Test 1972 00:00:00 Screening for malignant neoplasm of colon (procedure) [code = 834974030] [facility] Test 1972 00:00:00 Sigmoidoscopy [code = Sigmoidoscopy] [facility] Test 1972 00:00:00 Screening for malignant neoplasm of breast (procedure) [code = 924092407] [facility] Test 1972 00:00:00 CT Colonography (combo) [code = CT Colonography (combo)] [facility] Test 1972 00:00:00 Screening for malignant neoplasm of colon (procedure) [code = 743052702] [facility] Test 1972 00:00:00 Screening for malignant neoplasm of colon (procedure) [code = 431884348] [facility] Test 1972 00:00:00 Screening for malignant neoplasm of colon (procedure) [code = 713249447] [facility] Test 1972 00:00:00 Screening for malignant neoplasm of colon (procedure) [code = 767440185] [facility] Test 1972 00:00:00 Sigmoidoscopy [code = Sigmoidoscopy] [facility] Test 1972 00:00:00 Screening for malignant neoplasm of breast (procedure) [code = 940998406] [facility] 1972 00:00:00 CT Colonography (combo) [code = CT Colonography (combo)] [facility] 1972 00:00:00 Screening for malignant neoplasm of colon (procedure) [code = 590024137] [facility] Test 1972 00:00:00 Screening for malignant neoplasm of colon (procedure) [code = 144841707] [facility] Test 1972 00:00:00 Screening for malignant neoplasm of colon (procedure) [code = 558466730] [facility] 1972 00:00:00 Screening for malignant neoplasm of colon (procedure) [code = 577459037] [facility] Test 1972 00:00:00 Sigmoidoscopy [code = Sigmoidoscopy] [facility] 1972 00:00:00 Screening for malignant neoplasm of breast (procedure) [code = 002783012] [facility] Test 1972 00:00:00 CT Colonography (combo) [code = CT Colonography (combo)] [facility] 1972 00:00:00 Screening for malignant neoplasm of colon (procedure) [code = 291699922] [facility] Test 1972 00:00:00 Screening for malignant neoplasm of colon (procedure) [code = 390560853] [facility] Test 1972 00:00:00 Screening for malignant neoplasm of colon (procedure) [code = 999069451] [facility] 1972 00:00:00 Screening for malignant neoplasm of colon (procedure) [code = 701161241] [facility] Test 1972 00:00:00 Sigmoidoscopy [code = Sigmoidoscopy] [facility] Test 1972 00:00:00 Screening for malignant neoplasm of breast (procedure) [code = 638963026] [facility] Test 1972 00:00:00 CT Colonography (combo) [code = CT Colonography (combo)] [facility] 1972 00:00:00 Screening for malignant neoplasm of colon (procedure) [code = 810207963] [facility] Test 1972 00:00:00 Screening for malignant neoplasm of colon (procedure) [code = 904074999] [facility] Test 1972 00:00:00 Screening for malignant neoplasm of colon (procedure) [code = 847901320] [facility] Test 1972 00:00:00 Screening for malignant neoplasm of colon (procedure) [code = 576111311] [facility] Test 1972 00:00:00 Sigmoidoscopy [code = Sigmoidoscopy] [facility] Test 1972 00:00:00 Screening for malignant neoplasm of breast (procedure) [code = 009151638] [facility] Test 1972 00:00:00 CT Colonography (combo) [code = CT Colonography (combo)] [facility] 1972 00:00:00 Screening for malignant neoplasm of colon (procedure) [code = 023125927] [facility] Test 1972 00:00:00 Screening for malignant neoplasm of colon (procedure) [code = 850326952] [facility] Test 1972 00:00:00 Screening for malignant neoplasm of colon (procedure) [code = 529033738] [facility] Test 1972 00:00:00 Screening for malignant neoplasm of colon (procedure) [code = 073839495] [facility] Test 1972 00:00:00 Sigmoidoscopy [code = Sigmoidoscopy] [facility] Sched[facility] Test 1972 00:00:00 Screening for malignant neoplasm of breast (procedure) [code = 768468836] [facility] Sched[facility] Test 1972 00:00:00 CT Colonography (combo) [code = CT Colonography (combo)] [facility] Test 1972 00:00:00 Screening for malignant neoplasm of colon (procedure) [code = 006643634] [facility] Test 1972 00:00:00 Screening for malignant neoplasm of colon (procedure) [code = 123445406] [facility] Sched[facility] Test 1972 00:00:00 Screening for malignant neoplasm of colon (procedure) [code = 555929281] [facility] Sched[facility] Test 1972 00:00:00 Screening for malignant neoplasm of colon (procedure) [code = 294760626] [facility] Sched[facility] Test 1972 00:00:00 Sigmoidoscopy [code = Sigmoidoscopy] [facility] Test 1972 00:00:00 Screening for malignant neoplasm of breast (procedure) [code = 960225977] [facility] Test 1972 00:00:00 CT Colonography (combo) [code = CT Colonography (combo)] [facility] Test 1972 00:00:00 Screening for malignant neoplasm of colon (procedure) [code = 388224874] [facility] Test 1972 00:00:00 Screening for malignant neoplasm of colon (procedure) [code = 336176933] [facility] Test 1972 00:00:00 Screening for malignant neoplasm of colon (procedure) [code = 862188008] [facility] Test 1972 00:00:00 Screening for malignant neoplasm of colon (procedure) [code = 885665060] [facility] Test 1972 00:00:00 Sigmoidoscopy [code = Sigmoidoscopy] [facility] Test 1972 00:00:00 Screening for malignant neoplasm of breast (procedure) [code = 643183897] [facility] Test 1972 00:00:00 CT Colonography (combo) [code = CT Colonography (combo)] [facility] Test 1972 00:00:00 Screening for malignant neoplasm of colon (procedure) [code = 621764034] [facility] Test 1972 00:00:00 Screening for malignant neoplasm of colon (procedure) [code = 707589481] [facility] Test 1972 00:00:00 Screening for malignant neoplasm of colon (procedure) [code = 990838379] [facility] Test 1972 00:00:00 Screening for malignant neoplasm of colon (procedure) [code = 045945810] [facility] Test 1972 00:00:00 Sigmoidoscopy [code = Sigmoidoscopy] [facility] Test 1972 00:00:00 Screening for malignant neoplasm of breast (procedure) [code = 234765776] [facility] Test 1972 00:00:00 CT Colonography (combo) [code = CT Colonography (combo)] [facility] Test 1972 00:00:00 Screening for malignant neoplasm of colon (procedure) [code = 281922000] [facility] Test 1972 00:00:00 Screening for malignant neoplasm of colon (procedure) [code = 445723881] [facility] Test 1972 00:00:00 Screening for malignant neoplasm of colon (procedure) [code = 694458241] [facility] Test 1972 00:00:00 Screening for malignant neoplasm of colon (procedure) [code = 654620551] [facility] Test 1972 00:00:00 Sigmoidoscopy [code = Sigmoidoscopy] [facility] Test 1972 00:00:00 Screening for malignant neoplasm of breast (procedure) [code = 956735659] [facility] Test 1972 00:00:00 CT Colonography (combo) [code = CT Colonography (combo)] [facility] Test 1972 00:00:00 Screening for malignant neoplasm of colon (procedure) [code = 391751772] [facility] Test 1972 00:00:00 Screening for malignant neoplasm of colon (procedure) [code = 082501171] [facility] Test 1972 00:00:00 Screening for malignant neoplasm of colon (procedure) [code = 474106410] [facility] Test 1972 00:00:00 Screening for malignant neoplasm of colon (procedure) [code = 728799889] [facility] Test 1972 00:00:00 Sigmoidoscopy [code = Sigmoidoscopy] [facility] Test 1972 00:00:00 Screening for malignant neoplasm of breast (procedure) [code = 226469645] [facility] Sched[facility] Test 1972 00:00:00 CT Colonography (combo) [code = CT Colonography (combo)] [facility] Test 1972 00:00:00 Screening for malignant neoplasm of colon (procedure) [code = 555050258] [facility] Test 1972 00:00:00 Screening for malignant neoplasm of colon (procedure) [code = 708757836] [facility] Test 1972 00:00:00 Screening for malignant neoplasm of colon (procedure) [code = 226326325] [facility] Test 1972 00:00:00 Screening for malignant neoplasm of colon (procedure) [code = 733940953] [facility] Test 1972 00:00:00 Sigmoidoscopy [code = Sigmoidoscopy] [facility] Test 1972 00:00:00 Screening for malignant neoplasm of breast (procedure) [code = 177698677] [facility] Test 1972 00:00:00 CT Colonography (combo) [code = CT Colonography (combo)] [facility] 1972 00:00:00 Screening for malignant neoplasm of colon (procedure) [code = 222783259] [facility] Test 1972 00:00:00 Screening for malignant neoplasm of colon (procedure) [code = 396037488] [facility] Test 1972 00:00:00 Screening for malignant neoplasm of colon (procedure) [code = 639533561] [facility] Test 1972 00:00:00 Screening for malignant neoplasm of colon (procedure) [code = 482863121] [facility] Test 1972 00:00:00 Sigmoidoscopy [code = Sigmoidoscopy] [facility] Test 1972 00:00:00 Screening for malignant neoplasm of breast (procedure) [code = 500013257] [facility] Test 1972 00:00:00 CT Colonography (combo) [code = CT Colonography (combo)] [facility] Test 1972 00:00:00 Screening for malignant neoplasm of colon (procedure) [code = 956936678] [facility] Test 1972 00:00:00 Screening for malignant neoplasm of colon (procedure) [code = 644404032] [facility] Test 1972 00:00:00 Screening for malignant neoplasm of colon (procedure) [code = 930708585] [facility] Test 1972 00:00:00 Screening for malignant neoplasm of colon (procedure) [code = 759650410] [facility] Test 1972 00:00:00 Sigmoidoscopy [code = Sigmoidoscopy] [facility] Test 1972 00:00:00 Screening for malignant neoplasm of breast (procedure) [code = 207393690] [facility] Test 1972 00:00:00 CT Colonography (combo) [code = CT Colonography (combo)] [facility] 1972 00:00:00 Screening for malignant neoplasm of colon (procedure) [code = 178965566] [facility] Test 1972 00:00:00 Screening for malignant neoplasm of colon (procedure) [code = 960124684] [facility] Test 1972 00:00:00 Screening for malignant neoplasm of colon (procedure) [code = 088929120] [facility] Test 1972 00:00:00 Screening for malignant neoplasm of colon (procedure) [code = 716138645] [facility] Test 1972 00:00:00 Sigmoidoscopy [code = Sigmoidoscopy] [facility] 1972 00:00:00 Screening for malignant neoplasm of breast (procedure) [code = 525609202] [facility] Test 1972 00:00:00 CT Colonography (combo) [code = CT Colonography (combo)] [facility] Test 1972 00:00:00 Screening for malignant neoplasm of colon (procedure) [code = 772362765] [facility] Test 1972 00:00:00 Screening for malignant neoplasm of colon (procedure) [code = 861618228] [facility] Test 1972 00:00:00 Screening for malignant neoplasm of colon (procedure) [code = 496871922] [facility] Test 1972 00:00:00 Screening for malignant neoplasm of colon (procedure) [code = 528576922] [facility] Test 1972 00:00:00 Sigmoidoscopy [code = Sigmoidoscopy] [facility] Test 1972 00:00:00 Screening for malignant neoplasm of breast (procedure) [code = 257597578] [facility] Test 1972 00:00:00 CT Colonography (combo) [code = CT Colonography (combo)] [facility] 1972 00:00:00 Screening for malignant neoplasm of colon (procedure) [code = 808299366] [facility] Test 1972 00:00:00 Screening for malignant neoplasm of colon (procedure) [code = 895015717] [facility] Test 1972 00:00:00 Screening for malignant neoplasm of colon (procedure) [code = 156529316] [facility] Test 1972 00:00:00 Screening for malignant neoplasm of colon (procedure) [code = 606243445] [facility] Test 1972 00:00:00 Sigmoidoscopy [code = Sigmoidoscopy] [facility] Test 1972 00:00:00 Screening for malignant neoplasm of breast (procedure) [code = 291063436] [facility] Test 1972 00:00:00 CT Colonography (combo) [code = CT Colonography (combo)] [facility] Test 1972 00:00:00 Screening for malignant neoplasm of colon (procedure) [code = 950025108] [facility] Test 1972 00:00:00 Screening for malignant neoplasm of colon (procedure) [code = 981518879] [facility] Test 1972 00:00:00 Screening for malignant neoplasm of colon (procedure) [code = 560062055] [facility] 1972 00:00:00 Screening for malignant neoplasm of colon (procedure) [code = 191884550] [facility] 1972 00:00:00 Sigmoidoscopy [code = Sigmoidoscopy] [facility] [facility]:00 Screening for malignant neoplasm of breast (procedure) [code = 511862333] [facility] Future Scheduled Test 1972 00:00:00 CT Colonography (combo) [code = CT Colonography (combo)] [facility] Future Scheduled Test 1972 00:00:00 Screening for malignant neoplasm of colon (procedure) [code = 560926048] [facility] Future Scheduled Test 1972 00:00:00 Screening for malignant neoplasm of colon (procedure) [code = 841221394] [facility] Future Scheduled Test 1972 00:00:00 Screening for malignant neoplasm of colon (procedure) [code = 901102455] [facility] Future Scheduled Test 1972 00:00:00 Screening for malignant neoplasm of colon (procedure) [code = 634726436] [facility] Future Scheduled Test 1972 00:00:00 Sigmoidoscopy [code = Sigmoidoscopy] [facility] Future Scheduled Test 1972 00:00:00 Screening for malignant neoplasm of breast (procedure) [code = 181663925] [facility] Future Scheduled Test 1972 00:00:00 CT Colonography (combo) [code = CT Colonography (combo)] [facility] Future Scheduled Test 1972 00:00:00 Screening for malignant neoplasm of colon (procedure) [code = 659630564] [facility] Future Scheduled Test 1972 00:00:00 Screening for malignant neoplasm of colon (procedure) [code = 533658574] [facility] Future Scheduled Test 1972 00:00:00 Screening for malignant neoplasm of colon (procedure) [code = 101632638] [facility] Future Scheduled Test 1972 00:00:00 Screening for malignant neoplasm of colon (procedure) [code = 942462935] [facility] Future Scheduled Test 1972 00:00:00 Sigmoidoscopy [code = Sigmoidoscopy] [facility] Future Scheduled Test 1972 00:00:00 Screening for malignant neoplasm of breast (procedure) [code = 440432964] [facility] Future Scheduled Test 1972 00:00:00 CT Colonography (combo) [code = CT Colonography (combo)] [facility] Future Scheduled Test 1972 00:00:00 Screening for malignant neoplasm of colon (procedure) [code = 687461799] [facility] Future Scheduled Test 1972 00:00:00 Screening for malignant neoplasm of colon (procedure) [code = 948889974] [facility] Future Scheduled Test 1972 00:00:00 Screening for malignant neoplasm of colon (procedure) [code = 321127679] [facility] Future Scheduled Test 1972 00:00:00 Screening for malignant neoplasm of colon (procedure) [code = 689046035] [facility] Future Scheduled Test 1972 00:00:00 Sigmoidoscopy [code = Sigmoidoscopy] [facility] Future Scheduled Test 1972 00:00:00 Screening for malignant neoplasm of breast (procedure) [code = 991636508] [facility] Future Scheduled Test 1972 00:00:00 CT Colonography (combo) [code = CT Colonography (combo)] [facility] Future Scheduled Test 1972 00:00:00 Screening for malignant neoplasm of colon (procedure) [code = 078047017] [facility] Future Scheduled Test 1972 00:00:00 Screening for malignant neoplasm of colon (procedure) [code = 771181066] [facility] Future Scheduled Test 1972 00:00:00 Screening for malignant neoplasm of colon (procedure) [code = 612179342] [facility] Future Scheduled Test 1972 00:00:00 Screening for malignant neoplasm of colon (procedure) [code = 192624183] [facility] Future Scheduled Test 1972 00:00:00 Sigmoidoscopy [code = Sigmoidoscopy] [facility] Goal Plan of Care Not e [code = 29280-1] Goal Plan of Care Not e [code = 59398-2] Goal Plan of Care Not e [code = 90837-7] Goal Plan of Care Not e [code = 61617-4] Goal Plan of Care Not e [code = 36325-4] Goal Plan of Care Not e [code = 45305-7] Goal Plan of Care Not e [code = 14579-8] Goal Plan of Care Not e [code = 81298-7] Goal Plan of Care Not e [code = 10201-7] Goal Plan of Care Not e [code = 89064-7] Goal Plan of Care Not e [code = 07319-3] Goal Plan of Care Not e [code = 18354-0] Goal Plan of Care Not e [code = 93919-7] Goal Plan of Care Not e [code = 96615-1] Goal Plan of Care Not e [code = 11157-6] Goal Plan of Care Not e [code = 24288-4] Goal Plan of Care Not e [code = 10455-4] Goal Plan of Care Not e [code = 70944-7] Goal Plan of Care Not e [code = 52995-5] Goal Plan of Care Not e [code = 54589-6] Goal Plan of Care Not e [code = 83259-9] Goal Plan of Care Not e [code = 25996-6] Goal Plan of Care Not e [code = 18880-4] Goal Plan of Care Not e [code = 89818-6] Goal Plan of Care Not e [code = 83000-7] Goal Plan of Care Not e [code = 75751-8] Goal Plan of Care Not e [code = 48093-6] Goal Plan of Care Not e [code = 28429-8] Goal Plan of Care Not e [code = 10729-5] Goal Plan of Care Not e [code = 62587-8] Goal Plan of Care Not e [code = 09396-1] Goal Plan of Care Not e [code = 31966-0] Goal Plan of Care Not e [code = 23433-3] Goal Plan of Care Not e [code = 48125-3] Goal Plan of Care Not e [code = 07540-3] Encounters Start Date/Time End Date/Time Encounter Type Admission Type Attending [facility] Facility Care Department Encounter ID Source 2023-06-16 09:32:36 Inpatient AYDEE DICKENS [facility] [id number] [facility] 2023-06-16 09:32:09 Inpatient AYDEE DICKENS [facility] [id number] [facility] 2023-06-16 09:31:53 [facility] [id number] [facility] 2023-06-14 07:46:02 Inpatient AYDEE DICKENS [facility] [id number] [facility] 2023-06-14 07:39:22 Inpatient AYDEE DICKENS [facility] [id number] [facility] 2023-06-14 06:38:38 Inpatient AYDEE DICKENS [facility] [id number] [facility] 2023-06-13 13:44:18 Inpatient EL CARA BURGESS [facility] [id number] [facility] 2023-06-13 11:45:24 Inpatient AYDEE DICKENS [facility] [id number] [facility] 2023-05-08 11:21:00 Outpatient EL ADAM GARCIA [facility] Surgery [id number] [facility] 2023-04-01 14:26:29 Inpatient ER THOMAS LOZOYA [facility] [id number] [facility] 2023-03-31 09:24:52 Inpatient ER MARIAH ALDRIDGE [facility] [id number] [facility] 2021-05-20 18:48:04 Emergency [facility] [id number] [facility] 2021-05-20 12:43:40 Emergency [facility] [id number] [facility] 2023-06-13 03:43:00 2023-06-16 19:45:00 Hospital Encounter ER Cara Burgess Sahar [facility] [id number] [facility] 2023-06-13 03:43:00 2023-06-16 19:45:00 Inpatient ER AYDEE GO [facility] Internal Med [id number] [facility] 2023-06-13 03:43:00 2023-06-16 19:45:00 Hospital Encounter Cara Burgess Sahar [facility] [id number] [facility] 2023-06-15 00:00:00 2023-06-15 00:00:00 Orders Only System, Provider Not In [facility] [id number] [facility] 2023-06-15 00:00:00 2023-06-15 00:00:00 Orders Only System, Provider Not In [facility] [id number] [facility] 2023-06-13 16:30:06 2023-06-13 16:30:06 Outpatient EL TANIAF, SAHAR [facility] [id number] [facility] 2023-06-13 00:00:00 2023-06-13 00:00:00 Orders Only [facility] [id number] [facility] 2023-06-13 00:00:00 2023-06-13 00:00:00 Travel [facility] [id number] [facility] 2023-06-13 00:00:00 2023-06-13 00:00:00 Orders Only [facility] [id number] [facility] 2023-06-13 00:00:00 2023-06-13 00:00:00 Travel [facility] [id number] [facility] 2023-06-12 00:00:00 2023-06-12 00:00:00 Telephone Dallas Gomez [facility] [id number] [facility] 2023-06-12 00:00:00 2023-06-12 00:00:00 Telephone Dallas Gomez [facility] [id number] [facility] 2023-05-28 06:45:00 2023-06-04 17:36:00 Hospital Encounter Adam Brantley Adi [facility] [id number] [facility] 2023-05-28 06:45:00 2023-06-04 17:36:00 Inpatient ADAM BRANTLEY [facility] Surgery [id number] [facility] 2023-05-28 06:45:00 2023-06-04 17:36:00 Hospital Encounter Adam Garcia Adi [facility] [id number] [facility] 2023-06-01 09:10:00 2023-06-01 13:00:00 Anesthesia Event Harry Newsome Mujtaba Ahmad [facility] [id number] [facility] 2023-06-01 09:10:00 2023-06-01 13:00:00 Anesthesia Event BulHarry chaudhry Mujtaba Ahmad [facility] [id number] [facility] 2023-06-01 09:00:00 2023-06-01 11:30:00 Surgery Adam Garcia [facility] [id number] [facility] 2023-06-01 09:00:00 2023-06-01 11:30:00 Surgery Adam Garcia [facility] [id number] [facility] 2023-06-01 09:47:57 2023-06-01 09:47:57 Outpatient ADAM BRANTLEY [facility] [id number] [facility] 2023-06-01 09:40:34 2023-06-01 09:40:34 Outpatient ADAM BRANTLEY [facility] [id number] [facility] 2023-05-31 09:25:55 2023-05-31 23:59:00 Inpatient ADAM BRANTLEY [facility] [id number] [facility] 2023-05-31 09:00:00 2023-05-31 23:59:00 Hospital Encounter Adam Garcia [facility] [id number] [facility] 2023-05-31 09:00:00 2023-05-31 23:59:00 Hospital Encounter Adam Garcia [facility] [id number] [facility] 2023-05-28 18:15:29 2023-05-28 18:15:29 Outpatient ADAM BRANTLEY [facility] [id number] [facility] 2023-05-28 08:30:00 2023-05-28 11:54:00 Anesthesia Event Yue Bui [facility] [id number] [facility] 2023-05-28 08:30:00 2023-05-28 11:54:00 [id number] [facility] 2023-05-28 11:41:14 2023-05-28 11:41:14 Outpatient ADAM BRANTLEY [facility] [id number] [facility] 2023-05-28 08:30:00 2023-05-28 11:00:00 Surgery Adam Garcia [facility] [id number] [facility] 2023-05-28 08:30:00 2023-05-28 11:00:00 Surgery Adam Garcia [facility] [id number] [facility] 2023-05-28 10:00:47 2023-05-28 10:00:47 Outpatient ADAM BRANTLEY [facility] [id number] [facility] 2023-05-28 00:00:00 2023-05-28 00:00:00 Travel [facility] [id number] [facility] 2023-05-28 00:00:00 2023-05-28 00:00:00 Travel [facility] [id number] [facility] 2023-05-26 09:00:00 2023-05-26 09:00:00 Hospital Encounter Adam Garcia [facility] [id number] [facility] 2023-05-26 09:00:00 2023-05-26 09:00:00 Hospital Encounter Adam Garcia [facility] [id number] [facility] 2023-05-26 00:00:00 2023-05-26 00:00:00 Outpatient ADAM BRANTLEY [facility] [id number] [facility] 2023-05-26 00:00:00 2023-05-26 00:00:00 Outpatient NICOLETTE SLERigoberto [facility] [id number] [facility] 2023-05-26 00:00:00 2023-05-26 00:00:00 Travel [facility] [id number] [facility] 2023-05-26 00:00:00 2023-05-26 00:00:00 Travel [facility] [id number] [facility] 2023-05-13 11:43:03 2023-05-13 11:43:03 [facility]23-[facility]-12 00:00:00 2023-05-12 00:00:00 Orders Only Adam Garcia [facility] [id number] [facility] 2023-05-12 00:00:00 2023-05-12 00:00:00 Orders Only Adam Garcia [facility] [id number] [facility] 2023-05-08 14:11:21 2023-05-08 14:11:21 Outpatient [facility] [id number] Adria Martínez 2023-03-29 19:25:00 2023-04-02 20:48:[address] DaveyMariah Harvey, Thomas Hopkins [facility] [id number] [facility] 2023-03-29 19:25:00 2023-04-02 20:48:[address] Daveysebastian Aldridge, Mariah Lozoya, [facility] Hopkins [facility] [id number] [facility] 2023-03-29 19:25:00 2023-04-02 20:48:00 Inpatient ER THOMAS LOZOYA Neurology [id number] [facility] 2023-03-31 08:32:56 2023-03-31 00:00:00 Inpatient ER LUIS CARLOS MARIAH LIPSCOMB [facility] [id number] [facility] 2023-03-30 10:24:12 2023-03-30 23:59:00 Outpatient ER SRINIVASCONNIE REVELES SLERigoberto [facility] [id number] [facility] 2023-03-30 09:40:00 2023-03-30 23:59:00 Hospital Encounter Connie Davey Marisela [facility] [id number] [facility] 2023-03-30 09:40:00 2023-03-30 23:59:00 Hospital Encounter Connie Davey Marisela [facility] [id number] [facility] 2023-03-30 13:46:20 2023-03-30 13:46:20 Outpatient ER MARIAH ALDRIDGE [facility] [id number] [facility] 2023-03-30 13:46:14 2023-03-30 13:46:14 Outpatient ER MARIAH ALDRIDGE [facility] [id number] [facility] 2023-03-30 10:24:04 2023-03-30 10:24:04 Outpatient ER CONNIE DAVEY [facility] [id number] [facility] 2023-03-30 00:00:00 2023-03-30 00:00:00 Orders Only [facility] [id number] [facility] 2023-03-30 00:00:00 2023-03-30 00:00:00 Travel [facility] [id number] [facility] 2023-03-30 00:00:00 2023-03-30 00:00:00 Orders Only [facility] [id number] [facility] 2023-03-30 00:00:00 2023-03-30 00:00:00 Travel [facility] [id number] [facility] 2022-12-11 08:56:00 2022-12-11 15:29:00 Emergency X Alfonso ALVARADO [facility] ERT [id number] [facility] 2022-12-11 08:56:00 2022-12-11 15:29:00 Emergency Alfonso Alvarado Lorelei [facility] 1.2.840.114 350.1.13.10 4.2.7.2.686 [id number] [facility] 2022-11-17 17:25:00 2022-11-18 01:19:00 Emergency X RITCHIE WARREN [facility] ERT [id number] [facility] 2022-11-17 17:25:00 2022-11-18 01:19:00 Emergency Ritchie Warren E [facility] 12.840.114 350.1.13.10 4.2.7.2.686 [id number] [facility] 2022-08-28 00:00:00 2022-08-28 00:00:00 Patient Outreach Shy Beckman ANDREZCHRISTIAN 1..840.114 350.1.13.10 4.2.7.2.686 [id number] [facility] 2022-08-20 00:00:00 2022-08-20 00:00:00 Patient Outreach Shy Beckman ANDREZCHRISTIAN 1.2.840.114 350.1.13.10 4.2.7.2.686 [id number] [facility] 2022-08-02 17:30:00 2022-08-03 14:29:00 Hospital Encounter ER Halima Mendoza Kinjal M Ibe, Chimkama Ngozi Cynthia [facility] [id number] [facility] 2022-08-02 17:30:00 2022-08-03 14:29:00 Outpatient ER PARRISH WHEATLEY [facility] Neurology [id number] [facility] 2022-08-03 00:00:00 2022-08-03 00:00:00 Orders Only [facility] [id number] [facility] 2022-08-02 00:00:00 2022-08-02 00:00:00 Travel [facility] [id number] [facility] 2022-07-31 11:42:00 2022-08-01 21:48:00 Inpatient X LORENZA LOWRY [facility] [id number] [facility] 2022-07-31 11:42:00 2022-08-01 21:48:00 Hospital Encounter Sav Rondon Yaman [facility] 1..840.114 350.1.13.10 4.2.7.2.686 [id number] [facility] 2022-08-01 00:00:00 2022-08-01 00:00:00 Transition of Care Maria Teresa Nicole 1..840.114 350.1.13.10 4.2.7.2.686 [id number] [facility] 2022-07-28 14:41:38 2022-07-28 14:41:38 Outpatient [facility] [id number] Adria Martínez 2022-07-28 00:00:00 2022-07-28 00:00:00 Outpatient Visit [id number] 2022-07-24 13:24:40 2022-07-24 13:24:40 Outpatient [facility] 5 Adria Martínez 2022-05-23 14:51:01 2022-05-23 14:51:01 Outpatient [facility] [id number] Adria Martínez 2022-05-23 00:00:00 2022-05-23 00:00:00 Outpatient Visit [id number] 2022-05-04 20:22:00 2022-05-08 14:44:00 Outpatient X CHANTEL BOJORQUEZ [facility] [id number] [facility] 2022-05-04 20:22:00 2022-05-08 14:44:00 [facility] 1..840.114 350.1.13.10 4.2.7.2.686 [id number] [facility] 2022-04-13 13:06:00 2022-04-15 15:00:00 Inpatient X SELINA MARTINES [facility] BERNARDINO [id number] [facility] 2022-04-13 13:06:00 2022-04-15 15:00:00 Hospital Encounter Sapna Vargas Muhammad Zeeshan Zoila, Selina [facility] 1.0.114 350.1.13.10 4.2.7.2.686 [id number] [facility] 2022-02-19 10:20:00 2022-02-19 10:30:00 Imm/Inj [facility] Vaccine[facility] [place] [facility] 1..114 350.1.13.10 4.2.7.2.686 [id number] [facility] 2022-02-19 10:20:00 2022-02-19 10:20:00 Outpatient R JOSE PAK [facility] [id number] [facility] 2021-11-23 15:07:00 2021-11-23 17:03:00 Emergency X NICHELLE VIRK [facility] ERT [id number] [facility] 2021-11-23 15:07:00 2021-11-23 17:03:00 Emergency Sav Rondon Folusho F [facility] 1..114 350.1.13.10 4.2.7.2.686 [id number] [facility] 2021-11-21 09:40:00 2021-11-21 09:40:00 Outpatient R [facility] [id number] [facility] 2021-05-24 09:30:00 2021-05-24 09:30:00 Outpatient R JOSE PAK [facility] [id number] [facility] 2021-05-24 08:47:51 2021-05-24 08:57:51 Imm/Inj Visit Vaccine, [place] Dangelo Otoniel [facility] 1..114 350.1.13.10 4.2.7.2.686 [id number] [facility] 2021-05-03 09:40:00 2021-05-03 09:59:35 Outpatient R JOSE PAK [facility] [id number] [facility] 2021-05-03 09:17:43 2021-05-03 09:59:35 Imm/Inj Visit [facility] [place] Dangelo Jose Pak [facility] 1.2.840.114 350.1.13.10 4.2.7.2.686 [id number] [facility] 2021-04-16 00:00:00 2021-04-16 00:00:00 Orders Only Doctor Unassigned, [place] [facility] 1.2.840.114 350.1.13.10 4.2.7.2.686 [id number] [facility] 2021-03-17 00:00:00 2021-03-17 00:00:00 Telephone Miky Nava [facility] 1.2.840.114 350.1.13.10 4.2.7.2.686 [id number] [facility] 2021-03-16 20:08:00 2021-03-16 23:24:00 Emergency Fabrice Chakraborty [facility] 1.2.840.114 350.1.13.10 4.2.7.2.686 [id number] [facility] 2021-03-14 18:59:34 2021-03-14 20:19:13 Urgent Care Lydia Desouza Unknown, Attending [facility] 1.2840.114 350.1.13.10 4.2.7.2.686 [id number] [facility] 2021-03-14 19:00:00 2021-03-14 19:00:00 Outpatient R UNKNOWN, ATTENDING [facility] [id number] [facility] 2021-02-19 10:49:00 2021-02-19 14:48:00 Emergency Anali Monroy [facility] 1.2.840.114 350.1.13.10 4.2.7.2.686 [id number] [facility] 2019-03-09 00:00:00 2019-03-09 00:00:00 Yehuda Zimmerman [facility] 1.2.840.114 350.1.13.10 4.2.7.2.686 [id number] 2019-03-09 00:00:00 2019-03-09 00:00:00 Yehuda Zimmerman [facility] 1.2.840.114 350.1.13.10 4.2.7.2.686 [id number] [facility] Results Test Description Test Time Test Comments Results Result Co mments Source BLOOD [id number] 07:00:09* Test Item Value Reference Range Interpretation Comme nts CULTURE (BEAKER) (test code = 1095) No growth in 5 days T-SPOT(R).[id number] 18:35:00* Test Item Value Reference Range Interpretation Comme nts T-SPOT.TB (test code = 2807575) Negative SeeBelow Normal Value: Ne gativeA negative [...] CORRECTED FOR NEG CONTROL (test code = 5404745) 1 PANEL B SPOT COUNT CORRECTED FOR NEG CONTROL (test code = 6535580) 0 NEGATIVE CONTROL (test code = 4001707) Passed POSITIVE CONTROL (test code = 7481195) Passed LYNDSAY (test code = LYNDSAY) [id number] [facility][id number] 18:35:00* Test Item Value Reference Range Interpretation [...] CORRECTED FOR NEG CONTROL (test code = 1549942) 0 NEGATIVE CONTROL (test code = 0531704) Passed POSITIVE CONTROL (test code = 0407390) Passed LYNDSAY (test code = LYNDSAY) [id number] [facility][id number] 18:35:00* Test Item Value Reference Range Interpretation Comme nts T-SPOT.TB (test code = 2465227) Negative SeeBelow Normal Value: Ne gativeA negative [...] CORRECTED FOR NEG CONTROL (test code = 3762090) 0 NEGATIVE CONTROL (test code = 7211988) Passed POSITIVE CONTROL (test code = 2542737) Passed LYNDSAY (test code = LYNDSAY) 18195400 [facility][id number] 18:35:00* Test Item Value Reference Range Interpretation [...] 20150905) 0 NEGATIVE CONTROL (test code = 2916192) Passed POSITIVE CONTROL (test code = 6717293) Passed LYNDSAY (test code = LYNDSAY) 41915628 [facility][id number] 18:35:00* Test Item Value Reference Range Interpretation Comme nts T-SPOT.TB (test code = 1918242) Negative SeeBelow Normal Value: Ne gativeA negative [...] CORRECTED FOR NEG CONTROL (test code = 6428258) 1 PANEL B SPOT COUNT CORRECTED FOR NEG CONTROL (test code = 5269796) 0 NEGATIVE CONTROL (test code = 0292534) Passed POSITIVE CONTROL (test code = 20150907) Passed LYNDSAY (test code = LYNDSAY) 45342920 [facility][id number] 18:35:00* Test Item Value Reference Range Interpretation Comme nts T-SPOT.TB (test code = 0427408) Negative SeeBelow Normal Value: Ne gativeA negative [...] CORRECTED FOR NEG CONTROL (test code = 4713357) 1 PANEL B SPOT COUNT CORRECTED FOR NEG CONTROL (test code = 5007383) 0 NEGATIVE CONTROL (test code = 3522899) Passed POSITIVE CONTROL (test code = 7433799) Passed LYNDSAY (test code = LYNDSAY) [id number] [facility][id number] 18:35:00* Test Item Value Reference Range Interpretation Comme nts T-[email or web address].TB (test code = 1545444) Negative SeeBelow Normal Value: Ne gativeA negative [...] CORRECTED FOR NEG CONTROL (test code = 4111088) 1 PANEL B SPOT COUNT CORRECTED FOR NEG CONTROL (test code = 3628033) 0 NEGATIVE CONTROL (test code = 2400587) Passed POSITIVE CONTROL (test code = 0160594) Passed LYNDSAY (test code = LYNDSAY) [id number] [facility][id number] 18:35:00* Test Item Value Reference Range Interpretation Comme nts T-[email or web address].TB (test code = 3450367) Negative SeeBelow Normal Value: Ne gativeA negative [...] CORRECTED FOR NEG CONTROL (test code = 5849295) 1 PANEL B SPOT COUNT CORRECTED FOR NEG CONTROL (test code = 7087961) 0 NEGATIVE CONTROL (test code = 2388489) Passed POSITIVE CONTROL (test code = 2928685) Passed LYNDSAY (test code = LYNDSAY) [id number] [facility]).SN4949-08-02 18:35:00* Test Item Value Reference Range Interpretation [...] CORRECTED FOR NEG CONTROL (test code = 2132143) 0 NEGATIVE CONTROL (test code = 1055569) Passed POSITIVE CONTROL (test code = 0518605) Passed LYNDSAY (test code = LYNDSAY) [id number] [facility]).[id number] 18:35:00* Test Item Value Reference Range Interpretation Comme nts T-SPOT.TB (test code = 0876410) Negative SeeBelow Normal Value: Ne gativeA negative [...] 20150905) 0 NEGATIVE CONTROL (test code = 2089426) Passed POSITIVE CONTROL (test code = 20150907) Passed LYNDSAY (test code = LYNDSAY) [id number] [facility]).[id number] 18:35:00* Test Item Value Reference Range Interpretation [...] 20150905) 0 NEGATIVE CONTROL (test code = 7649331) Passed POSITIVE CONTROL (test code = 7714352) Passed LYNDSAY (test code = LYNDSAY) [id number] [facility]).XT5190-15-43 18:35:00* Test Item Value Reference Range Interpretation Comme nts T-SPOT.TB (test code = 4336870) Negative SeeBelow Normal Value: Ne gativeA negative [...] CORRECTED FOR NEG CONTROL (test code = 5045981) 1 PANEL B SPOT COUNT CORRECTED FOR NEG CONTROL (test code = 7660051) 0 NEGATIVE CONTROL (test code = 0058413) Passed POSITIVE CONTROL (test code = 7167498) Passed LYNDSAY (test code = LYNDSAY) [id number] [facility] HospitalTransesophageal srbl6037-05-57 13:41:18 Transesophageal Echocardiography Report (CHETAN) Demographics Patient Name YUE LAWS Date of Study 06/16/2023 ESTELLE Gender Female Visit Number [id number] Race Room Number 1055 Number Date of 1970 Referring Physician Age 53 year(s) Knitter Mechanic Interpreting Physician Brian MDProcedure Type of Study [...] Tricuspid Valve Partially visualized. Pulmonic Valve Not visualized.[facility] qtnvmb6152-42-36 09:55:41* Test Item Value Reference Range Interpretation Comme nts Result (test code = 6463-4) No MRSA isolated [facility] hhpvwd0023-95-71 09:55:41* Test Item Value Reference Range Interpretation Comme nts Result (test code = 6463-4) No MRSA isolated [facility] mqhepk0640-55-74 09:55:41* Test Item Value Reference Range Interpretation Comme nts Result (test code = 6463-4) No MRSA isolated [facility] fztocv8964-03-50 09:55:41* Test Item Value Reference Range Interpretation Comme nts Result (test code = 6463-4) No [facility] x[facility]h4848[facility]-35 09:55:41* Test Item Value Reference Range Interpretation Comme nts Result (test code = 6463-4) No [facility] tsbvfs4408-18-38 09:55:41* Test Item Value Reference Range Interpretation Comme nts Result (test code = 6463-4) No [facility] rrtktk2663-22-78 09:55:41* Test Item Value Reference Range Interpretation Comme nts Result (test code = 6463-4) No MRSA isolated [facility] xheise9549-51-42 09:55:41* Test Item Value Reference Range Interpretation Comme nts Result (test code = 6463-4) No MRSA isolated [facility] bjybfe1827-25-38 09:55:41* Test Item Value Reference Range Interpretation Comme nts Result (test code = 6463-4) No MRSA isolated [facility] kpuzoc5799-36-25 09:55:41* Test Item Value Reference Range Interpretation Comme nts Result (test code = 6463-4) No MRSA isolated [facility] xlygbj6996-02-08 09:55:41* Test Item Value Reference Range Interpretation Comme nts Result (test code = 6463-4) No MRSA isolated [facility] zkiccx6020-32-36 09:55:41* Test Item Value Reference Range Interpretation Comme nts Result (test code = 6463-4) No MRSA isolated [facility] [id number] 09:55:41* Test Item Value Reference Range Interpretation Comme nts CULTURE (BEAKER) (test code = 1095) No MRSA isolated CRYPTOCOCCAL [id number] 15:50:36* Test Item Value Reference Range Interpretation Comme nts CRYPTOCOCCAL ANTIGEN, SERUM (BEAKER) (test code = 1828) Negative Negative, Interference SPUTUM CULTURE + GRAM [id number] 10:30:11* Test Item Value Reference Range Interpretation [...] GRAM STAIN RESULT (BEAKER) (test code = 997114) 10-15 epithelial cells GRAM STAIN RESULT (BEAKER) (test code = 438649) 2+ gram positive cocci in chains and pairs GRAM STAIN RESULT (BEAKER) (test code = 113040) 1+ gram negative rods GRAM STAIN RESULT (BEAKER) (test code = 509485) 1+ yeast 2+ Normal respiratory rebel presentVANCOMYCIN LEVEL, [id number] 06:41:26* Test Item Value Reference Range Interpretation Comme nts VANCOMYCIN TROUGH (BEAKER) ( test code = 522) 17.0 ug/mL 10.0-20.0 Logistics Operations Manager ID - ADMINECHO W CONTRAST & TTCMCVP8004-12-32 13:44:03Transthoracic Echocardiography Report (TTE) Demographics Patient Name YUE LAWS Date of Study 06/14/2023 ESTELLE Gender Female Visit Number [id number] Race Room Number 1055 Number Date of 1970 Referring Aydee Go MD Physician Age 53 year(s) Knitter Mechanic James Albarran RDCS Interpreting Physician Brian MDProcedure Type of Study TTE procedure:2DECHO W DOPPLER(CW/PW/COLOR) (Routine)Indications:Suspected infective endocarditis with positive cultures or newmurmur.Clinical HistoryCOPDCVADiverticulitisHTNPADSeizureCardiacCath 2Contrast Medium: Definity. Amount - 2 mlHeight: 63 [...] with IV ultrasound enhancing agent. The left ventricleis chamber size (by vol index) is severely [...] sclerosis without evidence of stenosis. Mild aortic regurgitation.Mitral Valve Mild mitral annular calcification. Mild MV [...] Mean Velocity: 0.86 m/s Mean Gradient: 3.28 m mHg LVOT Diameter: 2.03 cm LVOT VTI: 21.8 cm LVOT Area: 3.24 cm^2 LVOT SV:70.52 ml LVOT CO: 6.49 l/min LVOT CI: 3.42 l/min/m^2 Pulmonic Valve Peak Velocity: 0.85 m/s Peak Gradient: 2.89 mmHgSonoma Speciality HospitalHEMOGLOBIN A1C 2023-06-14 09:26:42* Test Item Value Reference [...] 5.7- 6.4% indicates increased risk for diabetes (prediabetes)."Logistics Operations Manager ID - ADMOperator ID - ADMECG 12 [id number] 09:06:12Ventricular Rate 97 BPMAtrial Rate 97 BPMP-R Interval 146 msQRS Duration 96 msQ-T Interval 378 msQTC Calculation(Bazett) 480 msP Blanch 68 degreesR Blanch 107 degreesT Blanch 18 degrees Suspect arm leadreversal, interpretation assumes no reversalNormal sinus rhythmRightward axisNonspecific T wave abnormalityAbnormal ECGWhen compared with ECG of 30-MAR-2023 13:06,QRS axis Shifted rightConfirmed by Luis Lopez ([id number]) on 06/14/2023 9:06:07 [facility] vivh2298-20-53 09:06:12Ventricular Rate 97 BPMAtrial Rate 97 BPMP-R Interval 146 msQRS Duration 96 msQ-T Interval 378 msQTC Calculation(Bazett) 480 msP Blanch 68 degreesR Blanch 107 degreesT Blanch 18 degrees Suspect arm leadreversal, interpretation assumes no reversalNormal sinus rhythmRightward axisNonspecific T wave abno rmalityAbnormal ECGWhen compared with ECG of 30-MAR-2023 13:06,QRS axis Shifted rightConfirmed by Luis Lopez ([id number]) on 06/14/2023 9:06:07 [facility] CenterBASIC METABOLIC [id number] 04:48:18* Test Item Value Reference Range Interpretation [...] GFR is not applicable for dialysis patients Logistics Operations Manager ID - ADMINCBC (HEMOGRAM ONLY)2023-06-14 04:22:50* [...] 413) 0 /100 WBC 0-0 Strep pneumoniae ffefklc0758-17-74 23:34:41* Test Item Value Reference Range Interpretation Comme nts Strep pneumoniae Antigen (test code = 37193-2) Presumptive negative for pneumococcal pneumonia - see [...] the test. Lab Interpretation (test code = 31544-8) [facility] igjlpdp1752-60-81 23:34:41* Test Item Value Reference Range Interpretation Comme nts Strep pneumoniae Antigen (test code = 43085-4) Presumptive negative for pneumococcal pneumonia - see [...] the test. Lab Interpretation (test code = 29684-7) [facility] rigobdi0283-79-50 23:34:41* Test Item Value Reference Range Interpretation Comme nts Strep pneumoniae Antigen (test code = 51141-9) Presumptive negative for pneumococcal pneumonia - see [...] the test. Lab Interpretation (test code = 09164-2) [facility] rbjuygq4611-41-73 23:34:41* Test Item Value Reference Range Interpretation Comme nts Strep pneumoniae Antigen (test code = 32737-2) Presumptive negative for pneumococcal pneumonia - see [...] the test. Lab Interpretation (test code = 02969-3) [facility] rsrluwn1680-39-68 23:34:41* Test Item Value Reference Range Interpretation Comme nts Strep pneumoniae Antigen (test code = 66508-0) Presumptive negative for pneumococcal pneumonia - see [...] the test. Lab Interpretation (test code = 42033-3) [facility] tnllsrj9696-81-82 23:34:41* Test Item Value Reference Range Interpretation Comme nts Strep pneumoniae Antigen (test code = 83716-2) Presumptive negative for pneumococcal pneumonia - see [...] the test. Lab Interpretation (test code = 16637-2) [facility] euvcdvm3102-59-12 23:34:41* Test Item Value Reference Range Interpretation Comme nts Strep pneumoniae Antigen (test code = 86000-3) Presumptive negative for pneumococcal pneumonia - see [...] the test. Lab Interpretation (test code = 22451-0) [facility] zhuqmwf8873-55-01 23:34:41* Test Item Value Reference Range Interpretation Comme nts Strep pneumoniae Antigen (test code = 27745-0) Presumptive negative for pneumococcal pneumonia - see [...] the test. Lab Interpretation (test code = 63011-3) [facility] fccahqh8090-18-24 23:34:41* Test Item Value Reference Range Interpretation Comme nts Strep pneumoniae Antigen (test code = 93482-6) Presumptive negative for pneumococcal pneumonia - see [...] the test. Lab Interpretation (test code = 37775-8) [facility] ymmmage2875-61-59 23:34:41* Test Item Value Reference Range Interpretation Comme nts Strep pneumoniae Antigen (test code = 26521-7) Presumptive negative for pneumococcal pneumonia - see [...] the test. Lab Interpretation (test code = 66223-2) [facility] jlcwner2959-76-22 23:34:41* Test Item Value Reference Range Interpretation Comme nts Strep pneumoniae Antigen (test code = 57279-6) Presumptive negative for pneumococcal pneumonia - see [...] the test. Lab Interpretation (test code = 48988-2) [facility] znlzglc0825-89-89 23:34:41* Test Item Value Reference Range Interpretation Comme nts Strep pneumoniae Antigen (test code = 53072-5) Presumptive negative for pneumococcal pneumonia - see [...] the test. Lab Interpretation (test code = 47968-0) [facility] HospitalTREP PNEUMONIAE [id number] 23:34:41* Test Item Value Reference Range Interpretation [...] detection limit of the test. Legionella antigen, [id number] 23:29:07* Test Item Value Reference Range Interpretation Comme [facility] Legionella Urine Antigen (test code = 94945-4) Negative - see comment Negative Negative for L. pneumophila serogroup 1 antigen, suggesting no recent or current infection with this serogroup. Legionellosis cannot be ruled out since other serogroups and species may cause disease. Lab Interpretation (test code = 89129-9) Normal [facility] HospitalLegionella antigen, [id number] 23:29:07* Test Item Value Reference Range Interpretation Comme [facility] Legionella Urine Antigen (test code = 62628-9) Negative - see comment Negative Negative for L. pneumophila serogroup 1 antigen, suggesting no recent or current infection with this serogroup. Legionellosis cannot be ruled out since other serogroups and species may cause disease. Lab Interpretation (test code = 93532-5) Normal [facility] HospitalLegionella antigen, [id number] 23:29:07* Test Item Value Reference Range Interpretation Comme nts Legionella Urine Antigen (test code = 59641-4) Negative - see comment Negative Negative for L. pneumophila serogroup 1 antigen, suggesting no recent or current infection with this serogroup. Legionellosis cannot be ruled out since other serogroups and species may cause disease. Lab Interpretation (test code = 67910-6) Normal [facility] HospitalLegionella antigen, rotia4594-26-79 23:29:07* Test Item Value Reference Range Interpretation Comme nts Legionella Urine Antigen (test code = 40467-9) Negative - see comment Negative Negative for L. pneumophila serogroup 1 antigen, suggesting no recent or current infection with this serogroup. Legionellosis cannot be ruled out since other serogroups and species may cause disease. Lab Interpretation (test code = 01190-5) Normal [facility] HospitalLegionella antigen, vfwrj3910-00-05 23:29:07* Test Item Value Reference Range Interpretation Comme [facility] Legionella Urine Antigen (test code = 59147-3) Negative - see comment Negative Negative for L. pneumophila serogroup 1 antigen, suggesting no recent or current infection with this serogroup. Legionellosis cannot be ruled out since other serogroups and species may cause disease. Lab Interpretation (test code = 81684-9) Normal [facility] HospitalLegionella antigen, [id number] 23:29:07* Test Item Value Reference Range Interpretation Comme nts Legionella Urine Antigen (test code = 83088-5) Negative - see comment Negative Negative for L. pneumophila serogroup 1 antigen, suggesting no recent or current infection with this serogroup. Legionellosis cannot be ruled out since other serogroups and species may cause disease. Lab Interpretation (test code = 59509-1) Normal [facility] HospitalLegionella antigen, [id number] 23:29:07* Test Item Value Reference Range Interpretation Comme nts Legionella Urine Antigen (test code = 85914-2) Negative - see comment Negative Negative for L. pneumophila serogroup 1 antigen, suggesting no recent or current infection with this serogroup. Legionellosis cannot be ruled out since other serogroups and species may cause disease. Lab Interpretation (test code = 57388-9) Normal [facility] HospitalLegionella antigen, [id number] 23:29:07* Test Item Value Reference Range Interpretation Comme nts Legionella Urine Antigen (test code = 17476-9) Negative - see comment Negative Negative for L. pneumophila serogroup 1 antigen, suggesting no recent or current infection with this serogroup. Legionellosis cannot be ruled out since other serogroups and species may cause disease. Lab Interpretation (test code = 43368-1) Normal [facility] HospitalLegionella antigen, [id number] 23:29:07* Test Item Value Reference Range Interpretation Comme nts Legionella Urine Antigen (test code = 34375-8) Negative - see comment Negative Negative for L. pneumophila serogroup 1 antigen, suggesting no recent or current infection with this serogroup. Legionellosis cannot be ruled out since other serogroups and species may cause disease. Lab Interpretation (test code = 37660-3) Normal [facility] HospitalLegionella antigen, [id number] 23:29:07* Test Item Value Reference Range Interpretation Comme [facility] Legionella Urine Antigen (test code = 44682-8) Negative - see comment Negative Negative for L. pneumophila serogroup 1 antigen, suggesting no recent or current infection with this serogroup. Legionellosis cannot be ruled out since other serogroups and species may cause disease. Lab Interpretation (test code = 80952-9) Normal [facility] HospitalLegionella antigen, [id number] 23:29:07* Test Item Value Reference Range Interpretation Comme nts Legionella Urine Antigen (test code = 83198-0) Negative - see comment Negative Negative for L. pneumophila serogroup 1 antigen, suggesting no recent or current infection with this serogroup. Legionellosis cannot be ruled out since other serogroups and species may cause disease. Lab Interpretation (test code = 83742-2) Normal [facility] HospitalLegionella antigen, suetk6552-05-18 23:29:07* Test Item Value Reference Range Interpretation Comme nts Legionella Urine Antigen (test code = 79344-9) Negative - see comment Negative Negative for L. pneumophila serogroup 1 antigen, suggesting no recent or current infection with this serogroup. Legionellosis cannot be ruled out since other serogroups and species may cause disease. Lab Interpretation (test code = 48313-0) Normal [facility]LE[facility]ION[facility]LLA ANTIGEN, [id number] 23:29:07* Test Item Value Reference Range Interpretation Comme nts L. PNEUMOPHILA SEROGP 1 UR AG (LATOYA) (test code = 1156) Negative - see comment Negative Negative for L. pneumophila serogroup 1 antigen, suggesting no recent or current infection with this serogroup. Legionellosis cannot be ruled out since other serogroups and species may cause disease. Venous doppler arm, [id number] 20:05:32PV LAB - Upper Extremities Veins Demographics Patient Name YUE LAWS Date of Study 06/13/2023 ESTELLE Age 53 Visit Number [id number] Gender Female Accession Number [id number] Date of 1970 Referring Cara Burgess Room Number 1055 Physician Knitter Mechanic Lisa Ruiz Interpreting John Solorio, Physician FellowProcedureType [...] cm/s ; Diameters are [facility] WITH HIV-1/2 [id number] 18:36:40* Test Item Value Reference Range Interpretation Comme nts HIV-1 ANTIGEN WITH HIV 1\\T\\2 ANTIBODY (2) (LATOYA) (test code = 2586) Nonreactive Nonreactive MR lumbar spine without & with IV dqrcgzxt3080-21-88 14:53:29MR LUMBAR SPINE WITH & WITHOUT IV [...] x 1.7x 1.7 cm. Dorsal paraspinal musculature G1rzhzpolncxqmnh. Postcontrast imaging demonstrates mild peripheralenhancement of the dorsal paraspinal fluid collection. Left adrenalgland 2.9 cm nodule.[facility] HospitalMR L[facility] SP[facility] WITH & WITHOUT IV [id number] 14:53:29[facility] EUSEBIAGRACIELA MCCABE : 1970 Sex: FMR LUMBAR SPINE WITH [...] 1.7 x 1.7 cm. Dorsal paraspinal musculature V8hwsfyanrsduktp. Postcontrast imaging demonstrates mild peripheralenhancement of the [...] Signed By: Ryan Buckley06/13/2023 14:55 CDTWorkstation Name: [id number] KINASE (CK)2023-06-13 11:54:02* Test Item Value Reference Range Interpretation Comme nts CREATINE KINASE TOTAL (BEAKE R) (test code = 380) 43 U/L 29-200 Logistics Operations Manager ID - ADMINCOMPREHENSIVE METABOLIC LZYUO2515-36-47 06:48:22* Test Item Value Reference Range Interpretation [...] GFR is not applicable for dialysis patients Logistics Operations Manager ID - ADMINPROTHROMBIN TIME/LFO5758-45-96 06:40:01* Test Item Value Reference Range Interpretation [...] code = 2801) 1.70 % 0.00-1.00 H [id number] 05:26:09* Test Item Value Reference Range Interpretation Comme nts MAGNESIUM (BEAKER) (test cod e = 627) 2.0 mg/dL 1.6-2.6 Logistics Operations Manager ID - ALOEOVSJJWWGPJY8346-31-42 05:26:09* Test Item Value Reference Range Interpretation Comme nts PHOSPHORUS (BEAKER) (test co de = 604) 3.5 mg/dL 2.3-4.7 Logistics Operations Manager ID - ADMINBASIC METABOLIC [id number] 05:26:08* Test Item Value Reference Range Interpretation [...] GFR is not applicable for dialysis patients Logistics Operations Manager ID - ADMINCBC W/PLT COUNT & AUTO [id number] 05:11:15* Test Item Value Reference Range Interpretation [...] 0.70 % 0.00-1.00 XR spine lumbar 1 nuhb3084-63-17 10:32:20XR SPINE LUMBAR 1 VIEW CLINICAL INDICATION: L3-4 LAMINECTOMY COMPARISON: None[facility] HospitalXR SPINE LUMBAR 1 [id number] 10:32:20 [facility] : 1970 Sex: FXR SPINE LUMBAR 1 VIEWCLINICAL INDICATION: L3-4 LAMINECTOMYCOMPARISON: NoneIMPRESSION:A single lateral view of the lumbar spine is obtained intraoperatively.The posterior approach surgical instrument is seen at the L3-L4 level,inferior to the L3 spinous process. Results were communicated to , who concurred with the above findings. Electronically Signed By: Maxim Ramos08/01/2022 10:34 CDTWo rkstation Name: [id number] SPINE LUMBAR 1 [id number] 10:29:18 [facility] : 1970 Sex: [...] By: Maxim Jean Baptisteip108/01/2022 10:31 CDTWorkstation Name: [id number] Screen, bdhdb0952-46-92 05:32:52* Test Item Value Reference Range Interpretation Comme nts Preg Test, Ur (test code = 2111-07) Negative Negative Lab Interpretation (test cod e = 21650-6) Normal [facility] HospitalPregnancy Screen, nvarh7103-20-41 05:32:52* Test Item Value Reference Range Interpretation Comme nts Preg Test, Ur (test code = 2111-) Negative Negative Lab Interpretation (test cod e = 43027-7) Normal [facility] HospitalPregnancy Screen, rtyec6929-30-14 05:32:52* Test Item Value Reference Range Interpretation Comme nts Preg Test, Ur (test code = 2111-) Negative Negative Lab Interpretation (test cod e = 10300-9) Normal [facility] HospitalPregnancy Screen, udbaq3093-53-13 05:32:52* Test Item Value Reference Range Interpretation Comme nts Preg Test, Ur (test code = 2-1) Negative Negative Lab Interpretation (test cod e = 74460-3) Normal [facility] HospitalPregnancy Screen, [id number] 05:32:52* Test Item Value Reference Range Interpretation Comme nts Preg Test, Ur (test code = 2-1) Negative Negative Lab Interpretation (test cod e = 50810-7) Normal [facility] HospitalPregnancy Screen, qbair8462-85-19 05:32:52* Test Item Value Reference Range Interpretation Comme nts Preg Test, Ur (test code = 2-1) Negative Negative Lab Interpretation (test cod e = 70170-4) Normal [facility] HospitalPregnancy Screen, btouu5571-92-48 05:32:52* Test Item Value Reference Range Interpretation Comme nts Preg Test, Ur (test code = 2111-) Negative Negative Lab Interpretation (test cod e = 84822-4) Normal [facility], eofmu9757-13-33 05:32:52* Test Item Value Reference Range Interpretation Comme nts Preg Test, Ur (test code = 2-) Negative Negative Lab Interpretation (test cod e = 37754-0) Normal [facility]Pregnancy Screen, xijbb9936-17-53 05:32:52* Test Item Value Reference Range Interpretation Comme nts Preg Test, Ur (test code = 2111-1) Negative Negative Lab Interpretation (test cod e = 65305-3) Normal [facility]Pregnancy Screen, lxpir6654-30-54 05:32:52* Test Item Value Reference Range Interpretation Comme nts Preg Test, Ur (test code = 2111-1) Negative Negative Lab Interpretation (test cod e = 29175-0) Normal [facility]Pregnancy Screen, ryfba3895-74-29 05:32:52* Test Item Value Reference Range Interpretation Comme nts Preg Test, Ur (test code = 2111-1) Negative Negative Lab Interpretation (test cod e = 60085-7) Normal [facility]Pregnancy Screen, vtgsm1219-55-45 05:32:52* Test Item Value Reference Range Interpretation Comme nts Preg Test, Ur (test code = 2111-1) Negative Negative Lab Interpretation (test cod e = 11658-8) Normal [facility] HospitalPregnancy Screen, galyl3479-28-80 05:32:52* Test Item Value Reference Range Interpretation Comme nts Preg Test, Ur (test code = 2111-1) Negative Negative Lab Interpretation (test cod e = 15899-0) Normal [facility] HospitalPregnancy Screen, ssnzb1842-73-66 05:32:52* Test Item Value Reference Range Interpretation Comme nts Preg Test, Ur (test code = 2111-) Negative Negative Lab Interpretation (test cod e = 44837-7) Normal [facility] HospitalPregnancy Screen, hpile8235-24-06 05:32:52* Test Item Value Reference Range Interpretation Comme nts Preg Test, Ur (test code = 2111-) Negative Negative Lab Interpretation (test cod e = 36663-8) Normal [facility] HospitalPREGNANCY SCREEN, [id number] 05:32:52* Test Item Value Reference Range Interpretation Comme nts TEST URINE (BEAKER ) (test code = 583) Negative Negative BASIC METABOLIC [id number] 23:30:54* Test Item Value Reference Range Interpretation [...] GFR is not applicable for dialysis patients Logistics Operations Manager ID - ADMINPT/[id number] 23:15:33* Test Item Value Reference Range Interpretation [...] H CT neck soft tissue without IV [id number] 13:45:22EXAM: CT NECK SOFT TISSUE WITHOUT IV [...] Postoperative changes from anterior cervical discectomy fusionat C3-I3Bchbbbbk Lung Apices: NormalCHI [facility]. Kennedy [facility] HospitalCT NECK SOFT TISSUE WITHOUT IV [id number] 13:45:22 [facility] 1970 Sex: FEXAM: [...] Postoperative changes from anterior cervical discectomy fusionat C3-Q4Tgmonzqc Lung Apices: NormalIMPRESSION:Exam limited by lack of intravenous contrast.1. 1.8 x 2.9 x 1.3 cm ill-defined fluid collection in the leftanterolateral neck soft tissues, suggesting evolving postoperativehemorrhage. Superimposed infection is not ex cluded.2. Retropharyngeal fluid and air measuring up to 0.8 cm in thickness,favored to be present postoperative right frontal edema. Superimposedinfection is not excluded.3. Postoperative changes from ACDF at C3- M5Qvfkqwqhgdkban Signed By: Maxim Ramos07/31/2022 13:47 CDTWorkstation Name: [id number] METABOLIC [id number] 08:13:13* Test Item Value Reference Range Interpretation [...] GFR is not applicable for dialysis patients Logistics Operations Manager ID - BVCBC W/PLT COUNT & AUTO [id number] 07:46:31* Test Item Value Reference Range Interpretation [...] 0.00-1.00 XR spine cervical 2 or 3 [id number] 20:24:23TECHNIQUE: Frontal and lateral views of the cervical spine. INDICATION: Postop Standing Films. COMPARISON: None.[facility] HospitalXR SPINE CERVICAL 2 OR 3 [id number] 20:24:23[facility] : 1970 Sex: [...] Signed By: Zachariah Garcia05/28/2023 20:26 CDTWorkstation Name: [id number] fluoro non-specific up to 1 hour 2023-05-28 11:45:16This is a non-reportable study with no Radiologist dictation. Please refer to your PACS to review images, or Doc Flowsheets for documentation on studies without images.[facility] HospitalFL FLUORO NON-SPECIFIC UP TO 1 [id number] 11:45:16 [facility] : 1970 Sex: FThis is a non- reportable study with no Radiologist dictation. Please refer to your PACS to review images, or Doc Flowsheets for documentation on studies without images.FL FLUORO NON-SPECIFIC UP TO 1 [id number] 10:13:02 [facility] : 1970 Sex: FTECHNIQUE: 1 lateral fluoroscopic image of the cervical spine forlocalization.Fluoroscopic time: 3 second(s).FINDINGS:The surgical pointer is at C3-C4.The findings were discussed with Dr. Garcia in the OR who concurred withthe findings.IMPRESSION:Intraoperative localization plain film as described ab ove.Electronically Signed By: Derik Reyez05/28/2023 10:15 CDTWorkstation Name: [id number], QUANTITATIVE, [id number] 08:21:03* Test Item Value Reference Range Interpretation Comme nts GONADOTROPIN, CHORIONIC (HCG ) QUANT (BEAKER) (test code = 649) < mIU/mL 0-10 Non- Females: <10 mIU/mL Females: Gestation Age Reference Range(mIU/mL) 0.2-1 Week 5-50 1-2 Weeks 50-500 2-3 Weeks 100-5,000 3-4 Weeks 500-10,000 4-5 Weeks 1,000-50,000 5-6 Weeks 10,000-100,000 6-8 Weeks 15,000- 200,000 2-3 Months 10,000-100,000 Logistics Operations Manager ID - ADMINCULTURE, [id number] 09:28:30SPECIMEN NUMBER: [id number] CULTURE, URINE SPECIMEN NUMBER: [id number] SPECIMEN COMMENT: URINE SOURCE: URINE REPORT STATUS: FINAL FINAL REPORT: 05/15/2023 >100,000 CFU/ML UROGENITAL REBEL PRESENT NOCOMMON PATHOGENS UNLESS OTHERWISE INDICATED, ALL TESTING PERFORMED AT [facility] [address] [place] [address] HORTICULTURAL TECHNICAL OFFICER: JANNY STEINER M.D. CLIA NUMBER [id number] [place]. [id number], [id number] 12:02:50SPECIMEN NUMBER: [id number] CULTURE, URINE SPECIMEN NUMBER: [id number] SOURCE: URINE REPORT STATUS: FINAL FINAL REPORT: 05/13/2023 NO SPECIMEN RECEIVED FOR TESTING. CHARGES DELETED.BASIC METABOLIC [id number] 04:48:43* Test Item Value Reference Range Interpretation Comme nts GLUCOSE (test code = 2217) 117 MG/DL 70-99 H BUN (test code = 2208) 20 MG/DL 6-20 CREATININE (test code = 2214) 0.83 MG/DL 0.60-1.30 eGFR (2020 CKD-EPI) (test co de = 38254) 85 ML/MIN/1.73 >60 SODIUM (test code = [...] 12.7 SECONDS 12.5-14.7 INR (test code = 63548) 0.9 SEE BELOW CURRENT RECOMMENDATIONS ARE FOR AN INR OF 2.0-3.0 FOR ALL PATIENTS ON VITAMIN K ANTAGONISTS, EXCEPT THOSE WITH PROSTHETIC HEART VALVES, FOR WHOM INR OF 2.5-3.5 IS RECOMMENDED. UNLESS OTHERWISE INDICATED, ALL TESTING PERFORMED AT [facility] [address] [place] [address] HORTICULTURAL TECHNICAL OFFICER: JANNY STEINER M.D. CLIA NUMBER [id number] [facility] [place]. [id number] CBC W/AUTO DIFF WITH [id number] 01:54:17* Test Item Value Reference Range Interpretation [...] H ABS NUCLEATED RBCS (test code = 24983) 0.00 K/UL 0.00-0.11 ECG 12 [id number] 14:02:48Ventricular Rate 102 BPMAtrial Rate 102 BPMP-R Interval 146 msQRS Duration 90 msQ-T Interval 372 msQTC Calculation(Bazett) 484 msP Blanch 11 degreesR Blanch -53 degreesT Blanch 29 degrees Sinus tachycardiaPossible Left atrial enlargementLeft axis deviationPoor R wave progression Cannot rule out Anterior infarct , age undetermined vs lead misplacementNonspecific T wave abnormalityProlonged QTAbnormal ECGNo previous ECGs availableConfirmed by David GARCIA, KYLE ([id number]) on 04/06/2023 2:02:46 [facility] SunsetECHO W CONTRAST & [id number] 13:11:39Transthoracic Echocardiography Report (TTE) Demographics Patient Name YUE LAWS Date of Study 03/31/2023 ESTELLE Gender Female Visit Number [id number] Race Room Number 2227 Number Date of 1970 Referring Physician Mariah Aldridge MD Age 53 year(s) Knitter Mechanic Wilmer Francois [employer] And Water Filler Josefina Corbett RDCS Interpreting Physician Melody MDProcedure Type of Study [...] vol index) is moderately enlarged (female - LVEDvol -71-80ml/m2). No evidence of LV hypertrophy. All [...] Valve Peak Velocity:0.74 m/s Peak Gradient: 2.22 mmHgSonoma Speciality HospitalXR chest 1 view portable / [id number] 15:39:07TECHNIQUE: Frontal view of the chest. INDICATION: CHf. COMPARISON: None. FINDINGS: LINES/TUBES: None. HEART AND MEDIASTINUM: Cardiomediastinal contour is within normallimits. LUNGS: The lungs are well inflated and clear. No consolidation orpulmonary edema. PLEURA: No pneumothorax. No significant pleural effusion. SOFT TISSUES AND BONES: Cervical spinal fixation hardware is noted.[facility] HospitalXR CHEST 1 VIEW PORTABLE / [id number] 15:39:07 [facility] : 1970 Sex: FTECHNIQUE: Frontal view of the chest.INDICATION: CHf.COMPARISON: None.FINDINGS:LINES/TUBES: None.HE ART AND MEDIASTINUM: Cardiomediastinal contour is within normallimits. LUNGS: The lungs are well inflated and clear. No consolidation orpulmonary edema.PLEURA: No pneumothorax. No significant pleuraleffusion.SOFT TISSUES AND BONES: Cervical spinal fixation hardware is noted.IMPRESSION:No acute card iopulmonary process.Electronically Signed By: Jose Carlos Lebron04/01/2023 15:41 CDTWorkstation Name: [id number] NATRIURETIC FACTOR (BNP)2023-04-01 14:15:07* Test Item Value Reference Range Interpretation Comme nts B-TYPE NATRIURETIC PEPTIDE ( BEAKER) (test code = 700) 192 pg/mL 0-100 H Logistics Operations Manager ID - ADMINMR spine cervical without IV [id number] 11:30:35MRI cervical spine without contrast CLINICAL HISTORY: [...] and paraspinal soft tissues are within normal limits.[facility] HospitalMR CERVICAL SPINE WITHOUT IV [id number] 11:30:35 [facility] : 1970 Sex: [...] Signed By: Maxim Sultana03/31/2023 11:32 CDTWorkstation Name: [id number] METABOLIC [id number] 04:43:14* Test Item Value Reference Range Interpretation [...] GFR is not applicable for dialysis patients Logistics Operations Manager GEOVANNA CORREA [facility] (HEMOGRAM ONLY)2023-03-31 04:20:07* Test Item Value Reference [...] 0 /100 WBC 0-0 Arterial doppler legs [id number] 17:44:07PV LAB - Lower Extremity Arterial Duplex Demographics Patient Name YUE LAWS Date of Study ESTELLE Age 53 Visit Number [id number] Gender Female Accession Number [id number] Date of 1970 Referring Mariah Aldridge, Room Number 2227 Physician Knitter Mechanic Yovana Akins Interpreting John Solorio, Physician FellowProcedureType [...] + + + + + + !Prox VETERINARY BACTERIOLOGIST ! !32 ! !Biphasic ! !60.9 ! !Triphasic ! +- + + + + + + + + + !Mid VETERINARY BACTERIOLOGIST ! !25.9 ! !Biphasic ! !59.7 ! !Triphasic ! + + + + + + + + + + !Dist VETERINARY BACTERIOLOGIST ! !33.2 ! !Biphasic ! !37.4 ! [...] ! !Biphasic ! !23.6 ! !Biphasic ! +-- + + + + + + + + +[facility] HospitalABI's Only(Ankle/Brachial Index)2023-03-30 17:13:47PV LAB - Lower Extremity Arterial Procedure Demographics Patient Name YUE LAWS Date of Study 03/30/2023 ESTELLE Age 53 Visit Number [id number] Gender Female Accession Number [id number] Date of 1970 Referring Mariah Aldridge, Room Number 2227 Physician Knitter Mechanic Yovana Akins Interpreting John Solorio, Physician FellowProcedureType [...] in cm/s ; Diameters are measured in cmCHI John F. Kennedy Memorial HospitalMR thoracic spine without IV [id number] 12:50:50MR THORACIC SPINE WITHOUT IV CONTRAST INDICATION: [...] and further reported on MRI lumbar spine. [facility] HospitalMR THORACIC SPINE WITHOUT IV [id number] 12:50:50[facility] : 1970 Sex: [...] abnormality. T10-11 moderate right neural foraminal stenosis wtyA09-30 moderate bilateral foraminal stenosis due to facet [...] Signed By: Ryan Buckley03/30/2023 12:52 CDTWorkstation Name: [id number] spine lumbar without IV [id number] 12:33:57MR LUMBAR SPINE WITHOUT IV CONTRAST INDICATION: Unlisted Reason for ExamConcern for cord compression COMPARISON: None TECHNIQUE: Multiplanar, multisequence MR images of the lumbar spinewithout contrast. FINDINGS: For the purposes of this dictation, the 5 lowermost lklmes-bmsdcrgfwptbw-pfic vertebral bodies are labeled L1-L5.Alignment of the [...] with mild to moderatebilateral neural foraminal stenosisCHI [facility] F. Kennedy Memorial HospitalMR LUMBAR SPINE WITHOUT IV [id number] 12:33:57 [facility] : 1970 Sex: FMR LUMBAR SPINE WITHOUT IV CONTRASTINDICATION: Unlisted Reason for ExamConcern for cord compressionCOMPARISON: NoneTECHNIQUE: Multiplanar, multisequence MR images of the lumbar spinewithout contrast. FINDINGS: For the purposes of this dictation, the 5 lowermost mnaqhz-djpfxshlurhrz-oqhn vertebral bodies are labeled L1- L5.Alignment of the lumbar spine is within normal limits. Vertebral body height is maintained. Bone marrow edema is seen at the inferior L3 and superior L4 vertebralbodies and bilateral L4 pedicles, favored to be degenerative in nature.Suggestion of a synovial cyst at the peofeU31-J40 level (series 301image eight).No spinal cord signal [...] flavum buckling versus synovial cyst at the miumtA48-C41 level (series 301image eight). MRI thoracic spine can beconsidered for further evaluation.7. Mild clumping of the cauda equina nerve roots, which is nonspecificbut may represent arachnoiditis. Postcontrast imaging can be consideredfor further evaluation.Electronically Signed By: Maxim Sultana03/30/2023 12:36 CDTWorkstation Name: [id number] [id number] 11:45:01* Test Item Value Reference Range Interpretation [...] 5.7- 6.4% indicates increased risk for diabetes (prediabetes)."Logistics Operations Manager ID - ADMEEG AWAKE AND [id number] 09:57:53Steph Martinez MD 03/30/2023 9:[address] [facility] Type: Inpatient, outpatient, EMUDATE(s) OF EE03/30/23DATE OF REPORT: 03/30/23MRN: [id number] of : 1970EE-1454Start time: 08:36Stop time: 09:23ICD-10: R56.9 CPT Code: 88298 (awake and asleep)HISTORY: 53 y/o female with [...] additional EEG recordings. Steph Elias MD, MPHNeurophysiology/Epilepsy AttendingSonoma Speciality Hospital EEG AWAKE AND [id number] 09:57:53Steph Martinez MD 03/30/2023 9:[address] EEG Type: Inpatient, outpatient, EMUDATE(s) OF EE03/30/23DATE OF REPORT: 03/30/23MRN: [id number] of : 1970EE-1454Start time: 08:36Stop time: :ICD-10: R56.9 CPT Code: 12690 (awake and asleep)HISTORY: 53 y/o female with [...] EEG recordings. Steph Elias MD, MPHNeurophysiology/Epilepsy AttendingCH[facility] EEG AWAKE AND [id number] 09:57:53Steph Martinez MD 03/30/2023 9:59 AMELECTROENCEPHALOGRAM FOR [facility] EEG Type: Inpatient, outpatient, EMUDATE(s) OF EE03/30/23DATE OF REPORT: 03/30/23MRN: [id number] of : 1970EE-1454Start time: 08:36Stop time: :ICD-10: R56.9 CPT Code: 06353 (awake and asleep)HISTORY: 53 y/o female with [...] EEG recordings. Steph Elias MD, MPHNeurophysiology/Epilepsy AttendingCH[facility] VALPROIC ACID LEVEL, [id number] 09:42:31* Test Item Value Reference Range Interpretation Comme nts VALPROIC ACID TOTAL (BEAKER) (test code = 924) 76 ug/mL 50-100 Therapeutic range for some clinical conditions may be >100 ug/mLUrinalysis w/Microscopic + Reflex to [id number] 08:43:51* Test Item Value Reference Range Interpretation Comme nts Color, UA (test code = 5778-6) Yellow Clarity, UA (test code = 5767-9) Clear Specific [place], UA (test code = 5811-5) 1.033 1.001-1.035 pH, UA (test code = 5803-2) 6.0 5.0-8.0 Protein, UA (test code = 59216-7) 30 mg/dL Negative A Glucose, UA (test code = 365) Negative Negative Ketones, UA (test code = 2514-8) Negative Negative Bilirubin, UA (test code = 75818-0) Negative Negative Blood, UA (test code = 76682-9) Small Negative A Nitrite, UA (test code = 5802-4) Negative Negative Leukocytes, UA (test code = 5799-2) Negative Negative Urobilinogen, UA (test code = 75245-9) 0.2 0.2-1.0 RBC, UA (test code = 81134-4) 51 See_Comment [Automated message] The system which [...] Occasional Squam Epithel, UA (test code = 37955-8) See_Comment [Automated message] The system which generated this result transmitted reference range: /HPF. The reference range was not used to interpret this result as normal/abnormal. Specimen Source (test code = 2795) LYNDSAY (test code = LYNDSAY) Logistics Operations Manager ID - [auto]Logistics Operations Manager ID - tech Lab Interpretation (test code = 15780-9) Abnormal [facility] HospitalUrinalysis w/Microscopic + Reflex to Culture 2023-03-30 08:43:51* Test Item Value Reference Range Interpretation Comme nts Color, UA (test code = 5778-6) Yellow Clarity, UA (test code = 5767-9) Clear Specific [place], UA (test code = 5811-5) 1.033 1.001-1.035 pH, UA (test code = 5803-2) 6.0 5.0-8.0 Protein, UA (test code = 97673-1) 30 mg/dL Negative A Glucose, UA (test code = 365) Negative Negative Ketones, UA (test code = 2514-8) Negative Negative Bilirubin, UA (test code = 69443-2) Negative Negative Blood, UA (test code = 98430-1) Small Negative A Nitrite, UA (test code = 5802-4) Negative Negative Leukocytes, UA (test code = 5799-2) Negative Negative Urobilinogen, UA (test code = 96789-3) 0.2 0.2-1.0 RBC, UA (test code = 41564-4) 51 See_Comment [Automated message] The system which [...] Occasional Squam Epithel, UA (test code = 41018-2) See_Comment [Automated message] The system which generated this result transmitted reference range: /HPF. The reference range was not used to interpret this result as normal/abnormal. Specimen Source (test code = 2795) LYNDSAY (test code = LYNDSAY) Logistics Operations Manager ID - [auto]Logistics Operations Manager ID - tech Lab Interpretation (test code = 67438-6) Abnormal [facility] HospitalUrinalysis w/Microscopic + Reflex to Culture 2023-03-30 08:43:51* Test Item Value Reference Range Interpretation Comme nts Color, UA (test code = 5778-6) Yellow Clarity, UA (test code = 5767-9) Clear Specific [place], UA (test code = 5811-5) 1.033 1.001-1.035 pH, UA (test code = 5803-2) 6.0 5.0-8.0 Protein, UA (test code = 92355-3) 30 mg/dL Negative A Glucose, UA (test code = 365) Negative Negative Ketones, UA (test code = 2514-8) Negative Negative Bilirubin, UA (test code = 13422-3) Negative Negative Blood, UA (test code = 91937-4) Small Negative A Nitrite, UA (test code = 5802-4) Negative Negative Leukocytes, UA (test code = 5799-2) Negative Negative Urobilinogen, UA (test code = 63588-4) 0.2 0.2-1.0 RBC, UA (test code = 67242-1) 51 See_Comment [Automated message] The system which [...] Occasional Squam Epithel, UA (test code = 02586-9) See_Comment [Automated message] The system which generated this result transmitted reference range: /HPF. The reference range was not used to interpret this result as normal/abnormal. Specimen Source (test code = 2795) LYNDSAY (test code = LYNDSAY) Logistics Operations Manager ID - [auto]Logistics Operations Manager ID - tech Lab Interpretation (test code = 85724-1) Abnormal [facility] HospitalUrinalysis w/Microscopic + Reflex to Culture 2023-03-30 08:43:51* Test Item Value Reference Range Interpretation Comme nts Color, UA (test code = 5778-6) Yellow Clarity, UA (test code = 5767-9) Clear Specific [place], UA (test code = 5811-5) 1.033 1.001-1.035 pH, UA (test code = 5803-2) 6.0 5.0-8.0 Protein, UA (test code = 86035-5) 30 mg/dL Negative A Glucose, UA (test code = 365) Negative Negative Ketones, UA (test code = 2514-8) Negative Negative Bilirubin, UA (test code = 07771-1) Negative Negative Blood, UA (test code = 91579-2) Small Negative A Nitrite, UA (test code = 5802-4) Negative Negative Leukocytes, UA (test code = 5799-2) Negative Negative Urobilinogen, UA (test code = 87679-2) 0.2 0.2-1.0 RBC, UA (test code = 36888-1) 51 See_Comment [Automated message] The system which [...] Occasional Squam Epithel, UA (test code = 31382-0) See_Comment [Automated message] The system which generated this result transmitted reference range: /HPF. The reference range was not used to interpret this result as normal/abnormal. Specimen Source (test code = 2795) LYNDSAY (test code = LYNDSAY) Logistics Operations Manager ID - [auto]Logistics Operations Manager ID - tech Lab Interpretation (test code = 75632-6) Abnormal [facility] HospitalUrinalysis w/Microscopic + Reflex to Culture 2023-03-30 08:43:51* Test Item Value Reference Range Interpretation Comme nts Color, UA (test code = 5778-6) Yellow Clarity, UA (test code = 5767-9) Clear Specific [place], UA (test code = 5811-5) 1.033 1.001-1.035 pH, UA (test code = 5803-2) 6.0 5.0-8.0 Protein, UA (test code = 80299-9) 30 mg/dL Negative A Glucose, UA (test code = 365) Negative Negative Ketones, UA (test code = 2514-8) Negative Negative Bilirubin, UA (test code = 46854-1) Negative Negative Blood, UA (test code = 65177-1) Small Negative A Nitrite, UA (test code = 5802-4) Negative Negative Leukocytes, UA (test code = 5799-2) Negative Negative Urobilinogen, UA (test code = 27791-1) 0.2 0.2-1.0 RBC, UA (test code = 05973-3) 51 See_Comment [Automated message] The system which [...] Occasional Squam Epithel, UA (test code = 14844-9) See_Comment [Automated message] The system which generated this result transmitted reference range: /HPF. The reference range was not used to interpret this result as normal/abnormal. Specimen Source (test code = 2795) LYNDSAY (test code = LYNDSAY) Logistics Operations Manager ID - [auto]Logistics Operations Manager ID - tech Lab Interpretation (test code = 87542-4) Abnormal [facility] HospitalUrinalysis w/Microscopic + Reflex to Culture 2023-03-30 08:43:51* Test Item Value Reference Range Interpretation Comme nts Color, UA (test code = 5778-6) Yellow Clarity, UA (test code = 5767-9) Clear Specific [place], UA (test code = 5811-5) 1.033 1.001-1.035 pH, UA (test code = 5803-2) 6.0 5.0-8.0 Protein, UA (test code = 37482-3) 30 mg/dL Negative A Glucose, UA (test code = 365) Negative Negative Ketones, UA (test code = 2514-8) Negative Negative Bilirubin, UA (test code = 55222-3) Negative Negative Blood, UA (test code = 21160-8) Small Negative A Nitrite, UA (test code = 5802-4) Negative Negative Leukocytes, UA (test code = 5799-2) Negative Negative Urobilinogen, UA (test code = 83566-2) 0.2 0.2-1.0 RBC, UA (test code = 92508-3) 51 See_Comment [Automated message] The system which [...] Occasional Squam Epithel, UA (test code = 41049-7) See_Comment [Automated message] The system which generated this result transmitted reference range: /HPF. The reference range was not used to interpret this result as normal/abnormal. Specimen Source (test code = 2795) LYNDSAY (test code = LYNDSAY) Logistics Operations Manager ID - [auto]Logistics Operations Manager ID - tech Lab Interpretation (test code = 60582-1) Abnormal [facility] HospitalUrinalysis w/Microscopic + Reflex to Culture 2023-03-30 08:43:51* Test Item Value Reference Range Interpretation Comme nts Color, UA (test code = 5778-6) Yellow Clarity, UA (test code = 5767-9) Clear Specific [place], UA (test code = 5811-5) 1.033 1.001-1.035 pH, UA (test code = 5803-2) 6.0 5.0-8.0 Protein, UA (test code = 42961-6) 30 mg/dL Negative A Glucose, UA (test code = 365) Negative Negative Ketones, UA (test code = 2514-8) Negative Negative Bilirubin, UA (test code = 95691-3) Negative Negative Blood, UA (test code = 27320-2) Small Negative A Nitrite, UA (test code = 5802-4) Negative Negative Leukocytes, UA (test code = 5799-2) Negative Negative Urobilinogen, UA (test code = 03465-3) 0.2 0.2-1.0 RBC, UA (test code = 42762-7) 51 See_Comment [Automated message] The system which [...] Occasional Squam Epithel, UA (test code = 05446-1) See_Comment [Automated message] The system which generated this result transmitted reference range: /HPF. The reference range was not used to interpret this result as normal/abnormal. Specimen Source (test code = 2795) LYNDSAY (test code = LYNDSAY) Logistics Operations Manager ID - [auto]Logistics Operations Manager ID - tech Lab Interpretation (test code = 76834-1) Abnormal [facility] HospitalUrinalysis w/Microscopic + Reflex to Culture 2023-03-30 08:43:51* Test Item Value Reference Range Interpretation Comme nts Color, UA (test code = 5778-6) Yellow Clarity, UA (test code = 5767-9) Clear Specific [place], UA (test code = 5811-5) 1.033 1.001-1.035 pH, UA (test code = 5803-2) 6.0 5.0-8.0 Protein, UA (test code = 52409-7) 30 mg/dL Negative A Glucose, UA (test code = 365) Negative Negative Ketones, UA (test code = 2514-8) Negative Negative Bilirubin, UA (test code = 34173-7) Negative Negative Blood, UA (test code = 44768-2) Small Negative A Nitrite, UA (test code = 5802-4) Negative Negative Leukocytes, UA (test code = 5799-2) Negative Negative Urobilinogen, UA (test code = 63542-6) 0.2 0.2-1.0 RBC, UA (test code = 70370-0) 51 See_Comment [Automated message] The system which [...] Occasional Squam Epithel, UA (test code = 23308-1) See_Comment [Automated message] The system which generated this result transmitted reference range: /HPF. The reference range was not used to interpret this result as normal/abnormal. Specimen Source (test code = 2795) LYNDSAY (test code = LYNDSAY) Logistics Operations Manager ID - [auto]Logistics Operations Manager ID - tech Lab Interpretation (test code = 96038-1) Abnormal [facility] HospitalUrinalysis w/Microscopic + Reflex to Culture 2023-03-30 08:43:51* Test Item Value Reference Range Interpretation Comme nts Color, UA (test code = 5778-6) Yellow Clarity, UA (test code = 5767-9) Clear Specific [place], UA (test code = 5811-5) 1.033 1.001-1.035 pH, UA (test code = 5803-2) 6.0 5.0-8.0 Protein, UA (test code = 89552-8) 30 mg/dL Negative A Glucose, UA (test code = 365) Negative Negative Ketones, UA (test code = 2514-8) Negative Negative Bilirubin, UA (test code = 15349-9) Negative Negative Blood, UA (test code = 65843-1) Small Negative A Nitrite, UA (test code = 5802-4) Negative Negative Leukocytes, UA (test code = 5799-2) Negative Negative Urobilinogen, UA (test code = 90190-8) 0.2 0.2-1.0 RBC, UA (test code = 94989-6) 51 See_Comment [Automated message] The system which [...] Occasional Squam Epithel, UA (test code = 32067-8) See_Comment [Automated message] The system which generated this result transmitted reference range: /HPF. The reference range was not used to interpret this result as normal/abnormal. Specimen Source (test code = 2795) LYNDSAY (test code = LYNDSAY) Logistics Operations Manager ID - [auto]Logistics Operations Manager ID - tech Lab Interpretation (test code = 42420-2) [facility] 2023-[facility]-30 08:43:51* Test Item Value Reference Range Interpretation Comme nts Color, UA (test code = 5778-6) Yellow Clarity, UA (test code = 5767-9) Clear Specific [place], UA (test code = 5811-5) 1.033 1.001-1.035 pH, UA (test code = 5803-2) 6.0 5.0-8.0 Protein, UA (test code = 07847-3) 30 mg/dL Negative A Glucose, UA (test code = 365) Negative Negative Ketones, UA (test code = 2514-8) Negative Negative Bilirubin, UA (test code = 78254-5) Negative Negative Blood, UA (test code = 83139-9) Small Negative A Nitrite, UA (test code = 5802-4) Negative Negative Leukocytes, UA (test code = 5799-2) Negative Negative Urobilinogen, UA (test code = 39711-5) 0.2 0.2-1.0 RBC, UA (test code = 65278-7) 51 See_Comment [Automated message] The system which [...] Occasional Squam Epithel, UA (test code = 51685-1) See_Comment [Automated message] The system which generated this result transmitted reference range: /HPF. The reference range was not used to interpret this result as normal/abnormal. Specimen Source (test code = 2795) LYNDSAY (test code = LYNDSAY) Logistics Operations Manager ID - [auto]Logistics Operations Manager ID - tech Lab Interpretation (test code = 44212-3) [facility] Reflex [facility] Culture 2023-03-30 08:43:51* Test Item Value Reference Range Interpretation Comme nts Color, UA (test code = 5778-6) Yellow Clarity, UA (test code = 5767-9) Clear Specific [place], UA (test code = 5811-5) 1.033 1.001-1.035 pH, UA (test code = 5803-2) 6.0 5.0-8.0 Protein, UA (test code = 20971-1) 30 mg/dL Negative A Glucose, UA (test code = 365) Negative Negative Ketones, UA (test code = 2514-8) Negative Negative Bilirubin, UA (test code = 51320-8) Negative Negative Blood, UA (test code = 23892-7) Small Negative A Nitrite, UA (test code = 5802-4) Negative Negative Leukocytes, UA (test code = 5799-2) Negative Negative Urobilinogen, UA (test code = 11096-2) 0.2 0.2-1.0 RBC, UA (test code = 84964-8) 51 See_Comment [Automated message] The system which [...] Occasional Squam Epithel, UA (test code = 44926-6) See_Comment [Automated message] The system which generated this result transmitted reference range: /HPF. The reference range was not used to interpret this result as normal/abnormal. Specimen Source (test code = 2795) LYNDSAY (test code = LYNDSAY) Logistics Operations Manager ID - [auto]Logistics Operations Manager ID - tech Lab Interpretation (test code = 54840-4) [facility] Culture 2023-03-30 08:43:51* Test Item Value Reference Range Interpretation Comme nts Color, UA (test code = 5778-6) Yellow Clarity, UA (test code = 5767-9) Clear Specific [place], UA (test code = 5811-5) 1.033 1.001-1.035 pH, UA (test code = 5803-2) 6.0 5.0-8.0 Protein, UA (test code = 55120-9) 30 mg/dL Negative A Glucose, UA (test code = 365) Negative Negative Ketones, UA (test code = 2514-8) Negative Negative Bilirubin, UA (test code = 12277-9) Negative Negative Blood, UA (test code = 54540-0) Small Negative A Nitrite, UA (test code = 5802-4) Negative Negative Leukocytes, UA (test code = 5799-2) Negative Negative Urobilinogen, UA (test code = 80046-7) 0.2 0.2-1.0 RBC, UA (test code = 49960-1) 51 See_Comment [Automated message] The system which [...] Occasional Squam Epithel, UA (test code = 87371-3) See_Comment [Automated message] The system which generated this result transmitted reference range: /HPF. The reference range was not used to interpret this result as normal/abnormal. Specimen Source (test code = 2795) LYNDSAY (test code = LYNDSAY) Logistics Operations Manager ID - [auto]Logistics Operations Manager ID - tech Lab Interpretation (test code = 38064-7) [facility] Reflex [facility] Culture 2023-03-30 08:43:51* Test Item Value Reference Range Interpretation Comme nts Color, UA (test code = 5778-6) Yellow Clarity, UA (test code = 5767-9) Clear Specific [place], UA (test code = 5811-5) 1.033 1.001-1.035 pH, UA (test code = 5803-2) 6.0 5.0-8.0 Protein, UA (test code = 32141-8) 30 mg/dL Negative A Glucose, UA (test code = 365) Negative Negative Ketones, UA (test code = 2514-8) Negative Negative Bilirubin, UA (test code = 76958-1) Negative Negative Blood, UA (test code = 46178-7) Small Negative A Nitrite, UA (test code = 5802-4) Negative Negative Leukocytes, UA (test code = 5799-2) Negative Negative Urobilinogen, UA (test code = 34212-0) 0.2 0.2-1.0 RBC, UA (test code = 06246-2) 51 See_Comment [Automated message] The system which [...] Occasional Squam Epithel, UA (test code = 04686-8) See_Comment [Automated message] The system which generated this result transmitted reference range: /HPF. The reference range was not used to interpret this result as normal/abnormal. Specimen Source (test code = 2795) LYNDSAY (test code = LYNDSAY) Logistics Operations Manager ID - [auto]Logistics Operations Manager ID - tech Lab Interpretation (test code = 04777-2) [facility] Reflex to Culture 2023-03-30 08:43:51* Test Item Value Reference Range Interpretation Comme nts Color, UA (test code = 5778-6) Yellow Clarity, UA (test code = 5767-9) Clear Specific [place], UA (test code = 5811-5) 1.033 1.001-1.035 pH, UA (test code = 5803-2) 6.0 5.0-8.0 Protein, UA (test code = 37405-5) 30 mg/dL Negative A Glucose, UA (test code = 365) Negative Negative Ketones, UA (test code = 2514-8) Negative Negative Bilirubin, UA (test code = 32470-0) Negative Negative Blood, UA (test code = 69200-5) Small Negative A Nitrite, UA (test code = 5802-4) Negative Negative Leukocytes, UA (test code = 5799-2) Negative Negative Urobilinogen, UA (test code = 64047-1) 0.2 0.2-1.0 RBC, UA (test code = 81339-1) 51 See_Comment [Automated message] The system which [...] Occasional Squam Epithel, UA (test code = 88191-1) See_Comment [Automated message] The system which generated this result transmitted reference range: /HPF. The reference range was not used to interpret this result as normal/abnormal. Specimen Source (test code = 2795) LYNDSAY (test code = LYNDSAY) Logistics Operations Manager ID - [auto]Logistics Operations Manager ID - tech Lab Interpretation (test code = 94255-6) [facility] Reflex to Culture 2023-03-30 08:43:51* Test Item Value Reference Range Interpretation Comme nts Color, UA (test code = 5778-6) Yellow Clarity, UA (test code = 5767-9) Clear Specific [place], UA (test code = 5811-5) 1.033 1.001-1.035 pH, UA (test code = 5803-2) 6.0 5.0-8.0 Protein, UA (test code = 76224-1) 30 mg/dL Negative A Glucose, UA (test code = 365) Negative Negative Ketones, UA (test code = 2514-8) Negative Negative Bilirubin, UA (test code = 09775-0) Negative Negative Blood, UA (test code = 89304-5) Small Negative A Nitrite, UA (test code = 5802-4) Negative Negative Leukocytes, UA (test code = 5799-2) Negative Negative Urobilinogen, UA (test code = 66263-0) 0.2 0.2-1.0 RBC, UA (test code = 04453-1) 51 See_Comment [Automated message] The system which [...] Occasional Squam Epithel, UA (test code = 27475-9) See_Comment [Automated message] The system which generated this result transmitted reference range: /HPF. The reference range was not used to interpret this result as normal/abnormal. Specimen Source (test code = 2795) LYNDSAY (test code = LYNDSAY) Logistics Operations Manager ID - [auto]Logistics Operations Manager ID - tech Lab Interpretation (test code = 81685-6) [facility] Reflex to Culture 2023-03-30 08:43:51* Test Item Value Reference Range Interpretation Comme nts Color, UA (test code = 5778-6) Yellow Clarity, UA (test code = 5767-9) Clear Specific [place], UA (test code = 5811-5) 1.033 1.001-1.035 pH, UA (test code = 5803-2) 6.0 5.0-8.0 Protein, UA (test code = 41567-1) 30 mg/dL Negative A Glucose, UA (test code = 365) Negative Negative Ketones, UA (test code = 2514-8) Negative Negative Bilirubin, UA (test code = 79498-4) Negative Negative Blood, UA (test code = 22226-9) Small Negative A Nitrite, UA (test code = 5802-4) Negative Negative Leukocytes, UA (test code = 5799-2) Negative Negative Urobilinogen, UA (test code = 56808-3) 0.2 0.2-1.0 RBC, UA (test code = 00180-4) 51 See_Comment [Automated message] The system which [...] Occasional Squam Epithel, UA (test code = 69700-0) See_Comment [Automated message] The system which generated this result transmitted reference range: /HPF. The reference range was not used to interpret this result as normal/abnormal. Specimen Source (test code = 2795) LYNDSAY (test code = LYNDSAY) Logistics Operations Manager ID - [auto]Logistics Operations Manager ID - tech Lab Interpretation (test code = 32498-8) [facility]normal [facility] Reflex to Culture 2023-03-30 08:43:51* Test Item Value Reference Range Interpretation Comme nts Color, UA (test code = 5778-6) Yellow Clarity, UA (test code = 5767-9) Clear Specific [place], UA (test code = 5811-5) 1.033 1.001-1.035 pH, UA (test code = 5803-2) 6.0 5.0-8.0 Protein, UA (test code = 19330-4) 30 mg/dL Negative A Glucose, UA (test code = 365) Negative Negative Ketones, UA (test code = 2514-8) Negative Negative Bilirubin, UA (test code = 88737-4) Negative Negative Blood, UA (test code = 18815-2) Small Negative A Nitrite, UA (test code = 5802-4) Negative Negative Leukocytes, UA (test code = 5799-2) Negative Negative Urobilinogen, UA (test code = 46521-2) 0.2 0.2-1.0 RBC, UA (test code = 56198-3) 51 See_Comment [Automated message] The system which [...] Occasional Squam Epithel, UA (test code = 85530-0) See_Comment [Automated message] The system which generated this result transmitted reference range: /HPF. The reference range was not used to interpret this result as normal/abnormal. Specimen Source (test code = 2795) LYNDSAY (test code = LYNDSAY) Logistics Operations Manager ID - [auto]Logistics Operations Manager ID - tech Lab Interpretation (test code = 28999-5) [facility]normal [facility] Reflex to Culture 2023-03-30 08:43:51* Test Item Value Reference Range Interpretation Comme nts Color, UA (test code = 5778-6) Yellow Clarity, UA (test code = 5767-9) Clear Specific [place], UA (test code = 5811-5) 1.033 1.001-1.035 pH, UA (test code = 5803-2) 6.0 5.0-8.0 Protein, UA (test code = 97357-1) 30 mg/dL Negative A Glucose, UA (test code = 365) Negative Negative Ketones, UA (test code = 2514-8) Negative Negative Bilirubin, UA (test code = 61589-3) Negative Negative Blood, UA (test code = 85451-5) Small Negative A Nitrite, UA (test code = 5802-4) Negative Negative Leukocytes, UA (test code = 5799-2) Negative Negative Urobilinogen, UA (test code = 94360-5) 0.2 0.2-1.0 RBC, UA (test code = 07482-3) 51 See_Comment [Automated message] The system which [...] Occasional Squam Epithel, UA (test code = 45758-9) See_Comment [Automated message] The system which generated this result transmitted reference range: /HPF. The reference range was not used to interpret this result as normal/abnormal. Specimen Source (test code = 2795) LYNDSAY (test code = LYNDSAY) Logistics Operations Manager ID - [auto]Logistics Operations Manager ID - tech Lab Interpretation (test code = 90483-7) [facility] Reflex to Culture 2023-03-30 08:43:51* Test Item Value Reference Range Interpretation Comme nts Color, UA (test code = 5778-6) Yellow Clarity, UA (test code = 5767-9) Clear Specific [place], UA (test code = 5811-5) 1.033 1.001-1.035 pH, UA (test code = 5803-2) 6.0 5.0-8.0 Protein, UA (test code = 27253-1) 30 mg/dL Negative A Glucose, UA (test code = 365) Negative Negative Ketones, UA (test code = 2514-8) Negative Negative Bilirubin, UA (test code = 01299-6) Negative Negative Blood, UA (test code = 43054-2) Small Negative A Nitrite, UA (test code = 5802-4) Negative Negative Leukocytes, UA (test code = 5799-2) Negative Negative Urobilinogen, UA (test code = 50639-4) 0.2 0.2-1.0 RBC, UA (test code = 51935-3) 51 See_Comment [Automated message] The system which [...] Occasional Squam Epithel, UA (test code = 88069-5) See_Comment [Automated message] The system which generated this result transmitted reference range: /HPF. The reference range was not used to interpret this result as normal/abnormal. Specimen Source (test code = 2795) LYNDSAY (test code = LYNDSAY) Logistics Operations Manager ID - [auto]Logistics Operations Manager ID - tech Lab Interpretation (test code = 94233-4) [facility] Reflex to Culture 2023-03-30 08:43:51* Test Item Value Reference Range Interpretation Comme nts Color, UA (test code = 5778-6) Yellow Clarity, UA (test code = 5767-9) Clear Specific [place], UA (test code = 5811-5) 1.033 1.001-1.035 pH, UA (test code = 5803-2) 6.0 5.0-8.0 Protein, UA (test code = 43652-0) 30 mg/dL Negative A Glucose, UA (test code = 365) Negative Negative Ketones, UA (test code = 2514-8) Negative Negative Bilirubin, UA (test code = 80328-3) Negative Negative Blood, UA (test code = 00838-2) Small Negative A Nitrite, UA (test code = 5802-4) Negative Negative Leukocytes, UA (test code = 5799-2) Negative Negative Urobilinogen, UA (test code = 36590-9) 0.2 0.2-1.0 RBC, UA (test code = 50393-3) 51 See_Comment [Automated message] The system which [...] Occasional Squam Epithel, UA (test code = 18219-9) See_Comment [Automated message] The system which generated this result transmitted reference range: /HPF. The reference range was not used to interpret this result as normal/abnormal. Specimen Source (test code = 2795) LYNDSAY (test code = LYNDSAY) Logistics Operations Manager ID - [auto]Logistics Operations Manager ID - tech Lab Interpretation (test code = 31644-7) [facility]normal [facility] Reflex to Culture 2023-03-30 08:43:51* Test Item Value Reference Range Interpretation Comme nts Color, UA (test code = 5778-6) Yellow Clarity, UA (test code = 5767-9) Clear Specific [place], UA (test code = 5811-5) 1.033 1.001-1.035 pH, UA (test code = 5803-2) 6.0 5.0-8.0 Protein, UA (test code = 75147-6) 30 mg/dL Negative A Glucose, UA (test code = 365) Negative Negative Ketones, UA (test code = 2514-8) Negative Negative Bilirubin, UA (test code = 69375-9) Negative Negative Blood, UA (test code = 89837-3) Small Negative A Nitrite, UA (test code = 5802-4) Negative Negative Leukocytes, UA (test code = 5799-2) Negative Negative Urobilinogen, UA (test code = 94728-8) 0.2 0.2-1.0 RBC, UA (test code = 13674-8) 51 See_Comment [Automated message] The system which [...] Occasional Squam Epithel, UA (test code = 83026-8) See_Comment [Automated message] The system which generated this result transmitted reference range: /HPF. The reference range was not used to interpret this result as normal/abnormal. Specimen Source (test code = 2795) LYNDSAY (test code = LNYDSAY) Logistics Operations Manager ID - [auto]Logistics Operations Manager ID - tech Lab Interpretation (test code = 99705-6) [facility]normal [facility] Reflex to Culture 2023-03-30 08:43:51* Test Item Value Reference Range Interpretation Comme nts Color, UA (test code = 5778-6) Yellow Clarity, UA (test code = 5767-9) Clear Specific [place], UA (test code = 5811-5) 1.033 1.001-1.035 pH, UA (test code = 5803-2) 6.0 5.0-8.0 Protein, UA (test code = 57278-9) 30 mg/dL Negative A Glucose, UA (test code = 365) Negative Negative Ketones, UA (test code = 2514-8) Negative Negative Bilirubin, UA (test code = 23657-9) Negative Negative Blood, UA (test code = 06443-6) Small Negative A Nitrite, UA (test code = 5802-4) Negative Negative Leukocytes, UA (test code = 5799-2) Negative Negative Urobilinogen, UA (test code = 46533-5) 0.2 0.2-1.0 RBC, UA (test code = 34335-6) 51 See_Comment [Automated message] The system which [...] Occasional Squam Epithel, UA (test code = 42532-6) See_Comment [Automated message] The system which generated this result transmitted reference range: /HPF. The reference range was not used to interpret this result as normal/abnormal. Specimen Source (test code = 2795) LYNDSAY (test code = LYNDSAY) Logistics Operations Manager ID - [auto]Logistics Operations Manager ID - tech Lab Interpretation (test code = 60447-4) [facility] Reflex to Culture 2023-03-30 08:43:51* Test Item Value Reference Range Interpretation Comme nts Color, UA (test code = 5778-6) Yellow Clarity, UA (test code = 5767-9) Clear Specific [place], UA (test code = 5811-5) 1.033 1.001-1.035 pH, UA (test code = 5803-2) 6.0 5.0-8.0 Protein, UA (test code = 37308-7) 30 mg/dL Negative A Glucose, UA (test code = 365) Negative Negative Ketones, UA (test code = 2514-8) Negative Negative Bilirubin, UA (test code = 82413-5) Negative Negative Blood, UA (test code = 73090-2) Small Negative A Nitrite, UA (test code = 5802-4) Negative Negative Leukocytes, UA (test code = 5799-2) Negative Negative Urobilinogen, UA (test code = 90590-9) 0.2 0.2-1.0 RBC, UA (test code = 94163-0) 51 See_Comment [Automated message] The system which [...] Occasional Squam Epithel, UA (test code = 62792-2) See_Comment [Automated message] The system which generated this result transmitted reference range: /HPF. The reference range was not used to interpret this result as normal/abnormal. Specimen Source (test code = 2795) LYNDSAY (test code = LYNDSAY) Logistics Operations Manager ID - [auto]Logistics Operations Manager ID - tech Lab Interpretation (test code = 72652-6) [facility] Reflex to Culture 2023-03-30 08:43:51* Test Item Value Reference Range Interpretation Comme nts Color, UA (test code = 5778-6) Yellow Clarity, UA (test code = 5767-9) Clear Specific [place], UA (test code = 5811-5) 1.033 1.001-1.035 pH, UA (test code = 5803-2) 6.0 5.0-8.0 Protein, UA (test code = 35839-0) 30 mg/dL Negative A Glucose, UA (test code = 365) Negative Negative Ketones, UA (test code = 2514-8) Negative Negative Bilirubin, UA (test code = 84211-9) Negative Negative Blood, UA (test code = 65221-2) Small Negative A Nitrite, UA (test code = 5802-4) Negative Negative Leukocytes, UA (test code = 5799-2) Negative Negative Urobilinogen, UA (test code = 64244-5) 0.2 0.2-1.0 RBC, UA (test code = 13809-4) 51 See_Comment [Automated message] The system which [...] Occasional Squam Epithel, UA (test code = 83048-8) See_Comment [Automated message] The system which generated this result transmitted reference range: /HPF. The reference range was not used to interpret this result as normal/abnormal. Specimen Source (test code = 2795) LYNDSAY (test code = LYNDSAY) Logistics Operations Manager ID - [auto]Logistics Operations Manager ID - tech Lab Interpretation (test code = 80711-3) [facility]normal [facility] Reflex to Culture 2023-03-30 08:43:51* Test Item Value Reference Range Interpretation Comme nts Color, UA (test code = 5778-6) Yellow Clarity, UA (test code = 5767-9) Clear Specific [place], UA (test code = 5811-5) 1.033 1.001-1.035 pH, UA (test code = 5803-2) 6.0 5.0-8.0 Protein, UA (test code = 57030-9) 30 mg/dL Negative A Glucose, UA (test code = 365) Negative Negative Ketones, UA (test code = 2514-8) Negative Negative Bilirubin, UA (test code = 67305-7) Negative Negative Blood, UA (test code = 39348-9) Small Negative A Nitrite, UA (test code = 5802-4) Negative Negative Leukocytes, UA (test code = 5799-2) Negative Negative Urobilinogen, UA (test code = 53579-4) 0.2 0.2-1.0 RBC, UA (test code = 20132-2) 51 See_Comment [Automated message] The system which [...] Occasional Squam Epithel, UA (test code = 35231-9) See_Comment [Automated message] The system which generated this result transmitted reference range: /HPF. The reference range was not used to interpret this result as normal/abnormal. Specimen Source (test code = 2795) LYNDSAY (test code = LYNDSAY) Logistics Operations Manager ID - [auto]Logistics Operations Manager ID - tech Lab Interpretation (test code = 42982-8) [facility] URINE [id number] 08:43:51 * Test Item Value Reference Range [...] < /HPF SOURCE(BEAKER) (test code = 2795) Logistics Operations Manager ID - [auto]Logistics Operations Manager ID - techCOMPREHENSIVE METABOLIC [id number] 04:37:29* Test Item Value Reference Range Interpretation [...] GFR is not applicable for dialysis patients Logistics Operations Manager ID - MATT BPT/[id number] 04:30:17* Test Item Value Reference Range Interpretation Comme nts PROTIME (BEAKER) (test code = 759) 13.8 seconds 11.9-14.2 INR (BEAKER) (test code = 370) 1.13 See_Comment [Automated Portfoliuma Acucela] The system which generated this result transmitted [...] code = 413) 0 /100 WBC 0-0 [id number] 00:00:00Ordered by an unspecified provider.[facility]FBHKNN2144-08-17 00:00:00Ordered by an unspecified provider. [facility]-[id number] 00:00:00Ordered by an unspecified provider.[facility]MAG[facility]UM2023-[facility]-25 17:14:06* Test Item Value Reference Range Interpretation Comme nts MAGNESIUM (test code = 4154988796) 1.9 mg/dL 1.7-2.4 Lab Interpretation (test cod e = 06465-3) [facility] (24956)2022-12-11 15:16:25* Test Item Value Reference Range Interpretation Comme nts NA (test code = 0023880092) 139 mmol/L 135-145 K (test code = 5993452686) 3.5 mmol/L 3.5-5.0 CL (test code = 3655492501) 107 mmol/L 98-108 CO2 TOTAL (test code = 6375868067) 24 mmol/L 23-31 AGAP (test code = 3457209194) 8 2-16 BUN (test code = 8347717039) 9 mg/dL 7-23 GLUCOSE (test code = 3286658790) 129 mg/dL 70-110 H CREATININE (test code = 8923068637) 0.68 mg/dL 0.50-1.04 TOTAL BILI (test code = 9647363738) 0.5 mg/dL 0.1-1.1 CALCIUM (test code = 6771598328) 8.9 mg/dL 8.6-10.6 T PROTEIN (test code = 1757259194) 6.3 g/dL 6.3-8.2 ALBUMIN (test code = 0699940740) 3.8 g/dL 3.5-5.0 ALK PHOS (test code = 8578897483) 87 U/L 34-122 ALTv (test code = 1742-6) 24 U/L 5-35 AST(SGOT) (test code = 1167227403) 21 U/L 13-40 eGFR (test code = 7519006221) 91.6 mL/min/1.73m2 LYNDSAY (test code = LYNDSAY) [...] imaging tests). Lab Interpretation (test code = 35555-0) [facility] [id number] 15:10:45* Test Item Value Reference Range Interpretation Comme nts TROPONIN I (test code = 5453659278) 0.015 ng/mL <=0.034 LYNDSAY (test code = [...] of biotin. Lab Interpretation (test code = 96428-3) [facility]AL [id number] 15:07:48* Test Item Value Reference Range Interpretation Comme nts NT-proBNP (test code = 7109075577) 1460 pg/mL <=125 H LYNDSAY (test code = LYNDSAY) Biotin has been reported to cause a negative bias, interpret results relative to patient's use of biotin. Lab Interpretation (test code = 34027-7) [facility]AFBTY2098-14-25 14:45:24* Test Item Value Reference Range Interpretation Comments D-DIMER (test code = 5096009942) 0.99 See_Comment H [Automated message] The system [...] a diagnosis. Lab Interpretation (test code = 54129-7) Abnormal [facility] WITH [id number] 14:14:48* Test Item Value Reference Range Interpretation Comme nts WBC (test code = 6690-2) 7.86 See_Comment [Automated [employer] ge] The system which generated this result transmitted reference range: 4.30 - 11.10 10*3/?L. The reference range was not used to interpret this result as normal/abnormal. RBC (test code = 789-8) 5.13 See_Comment [Automated [employer] ge] The system which generated this result [...] g/dL 31.6-35.1 L RDW-SD (test code = 05635-4) 47.8 fL 39.0-49.9 RDW-CV (test code = 788-0) 16.9 % 12.0-15.5 H PLT (test code = 777-3) 507 See_Comment H [Automated messa ge] The system which generated this result transmitted reference range: 166 - 358 10*3/?L. The reference range was not used to interpret this result as normal/abnormal. MPV (test code = 12534-5) 8.2 fL 9.5-12.9 L NRBC/100 WBC (test code = 1674991856) 0.0 See_Comment [Automated [employer] ssage] The system which generated this result transmitted reference range: 0.0 - 10.0 /100 WBCs. The reference range was not used to interpret this result as normal/abnormal. NRBC x10^3 (test code = 3909906929) See_Comment [Automated messa ge] The system which generated this result transmitted reference range: 10*3/?L. The reference range was not used to interpret this result as normal/abnormal. GRAN MAT (NEUT) % (test code = 770-8) 64.5 % IMM GRAN % (test code = 9037348429) 0.30 % LYMPH % (test code = 736-9) 25.6 % MONO % (test code = 5905-5) 7.5 % EOS % (test code = 713-8) 1.0 % BASO % (test code = 706-2) 1.1 % GRAN MAT x10^3(ANC) (test code = 1669672067) 5.07 10*3/uL 1.88-7.09 IMM GRAN x10^3 (test code = 1374076337) 0.00-0.06 LYMPH x10^3 (test code = 731-0) 2.01 10*3/uL 1.32-3.29 MONO x10^3 (test code = 742-7) 0.59 10*3/uL 0.33-0.92 EOS x10^3 (test code = 711-2) 0.08 10*3/uL 0.03-0.39 BASO x10^3 (test code = 704-7) 0.09 10*3/uL 0.01-0.07 H Lab Interpretation (test code = 40184-2) [facility] 13:17:22* Test Item Value Reference Range Interpretation Comme nts RPR SCREEN ([employer]) (test co de = 420) Nonreactive Nonreactive HEMOGLOBIN [id number] 10:39:49* Test Item Value Reference Range Interpretation Comme nts HEMOGLOBIN A1C ELECTROPHORESIS ([employer]) (test code = 3811) 5.8 % See_Comment [...] 5.7- 6.4% indicates increased risk for diabetes (prediabetes)."Logistics Operations Manager ID - ADM VITAMIN [id number] 22:48:27* Test Item Value Reference Range Interpretation Comme nts VITAMIN B12 (BEAKER) (test c ode = 774) 227 pg/mL 213-816 Logistics Operations Manager ID - MARCOTSH/FREE T4 IF [id number] 22:08:28* Test Item Value Reference Range Interpretation Comme nts THYROID STIMULATING HORMONE (BEAKER) (test code = 772) 3.309 uIU/mL 0.350-4.940 Logistics Operations Manager ID - JSHIV-1 ANTIGEN WITH HIV-1/2 [id number] 22:08:28* Test Item Value Reference Range Interpretation Comme nts HIV-1 ANTIGEN WITH HIV 1\\T\\2 ANTIBODY (2) (BEAKER) (test code = 2586) Nonreactive Nonreactive Logistics Operations Manager ID - JSC-REACTIVE KTOHGOA1222-29-11 21:49:44* Test Item Value Reference Range Interpretation Comme nts C-REACTIVE PROTEIN (BEAKER) (test code = 676) 0.35 mg/dL 0.00-0.50 Logistics Operations Manager ID - JSCOMPREHENSIVE METABOLIC [id number] 21:49:43* Test Item Value Reference Range Interpretation [...] GFR is not applicable for dialysis patients Logistics Operations Manager ID - JSLIPID [id number] 21:49:43* Test Item Value Reference Range Interpretation [...] Borderline 130-159 High 160-189 Very High >=190 Logistics Operations Manager ID - JSCBC W/PLT COUNT & AUTO [id number] 21:34:03* Test Item Value Reference Range Interpretation [...] Interpretation Comme nts Height (test code = 6931307090) in Weight (test code = 2679918966) lbs Systolic BP (test code = 2632986801) mmHg Diastolic BP (test code = 1835806023) mmHg Heart Rate (test code = 7455972789) bpm BSA (test code = 3857601984) 2.00 m2 Ao root diam (test code = 7285332005) 3.20 cm Aortic root (test code = 2423571529) 3.2 cm Ao root annulus (test code = 4452246429) 3.2 cm LVOT diameter (test code = 9615344173) 1.99 cm LVOT area (test code = 0204223192) 3.10 cm2 LVIDD (test code = 2736550733) 5.10 cm Left Ventricular End Diastolic Volume by Teichholz Method (test code = 0456563) 123.0 mL IVS (test code = 3335067493) 1.34 cm Interventricular Septum Diastolic Thickness by 2D (test code = 6831345) 1.34 cm LVPWD (test code = 1269798545) 1.34 cm PW (test code = 2697381860) 1.34 cm 0.6-1.1 EF(Teich) (test code = 6141079450) 41.80 % LVIDS (test code = 5990295746) 4.00 cm Left Ventricular End Systolic Volume by Teichholz Method (test code = 3353521) 71.5 mL FS (test code = 9857486195) 21 % EF - 2D (test code = 90314986) 41.80 % LA size (test code = 3871397663) 4.6 cm Pulmonic Regurgitant End Max Velocity (test code = 0197665439) 119.4 cm/s LAV(MOD-sp4) (test code = 1313959617) 95.00 mL E wave decelartion time (test code = 6719671981) 0.15 s MV stenosis pressure 1/2 time (test code = 1284472648) 45.6 ms MV Peak A Evette (test code = 7852452008) 123.8 cm/s MV Peak E Evette (test code = 9192332342) 109.7 cm/s E/A ratio (test code = 8324983829) ratio MR max PG (test code = 8554970712) 87.20 mm[Hg] MR max evette (test code = 5154817587) 466.90 cm/s Mr max evette (test code = 2476097311) 466.9 m/s MV Prop V (test code = 7283317168) 51.00 cm/s MV E/e' septal (test code = 2865009819) 8.1 cm/s Tapse (test code = 9815041351) 2.21 cm LVOT stroke volume (test code = 0975395734) 49.80 cm3 LVOT peak evette (test code = 5532579351) 89.1 cm/s LVOT mn grad (test code = 2782443831) mmHg AV LVOT peak gradient (test code = 2007034520) mmHg LVOT peak VTI (test code = 1586317331) 16.0 cm LV V1 mean (test code = 4113751344) 64.30 cm/s Aortic valve mean velocity (test code = 4385730458) 133.8 cm/s Ao peak evette (test code = 5969794866) 175.3 cm/s Ao VTI (test code = 9130895880) 32.2 cm AV area by cont VTI (test code = 7870912892) 1.6 cm2 AV area peak evette (test code = 0161812577) 1.6 cm2 Ao max PG (test code = 7242380165) 12.30 mm[Hg] AV peak gradient (test code = 5671994411) mmHg AV valve area (test code = 6887762041) 1.55 cm2 AV mean gradient (test code = 1505411656) mmHg AV regurgitation pressure 1/2 time (test code = 4511373693) 358.5 ms AI dec slope (test code = 8570779549) 364.20 cm/s2 AI max evette (test code = 4313354322) 445.80 cm/s AI max PG (test code = 5725539609) 79.50 mm[Hg] Radiology Study observation (narrative) (test code = 35790-3) LYNDSAY (test code = LYNDSAY) ?Left?Ventricle: Left [...] of Lumason ultrasound enhancing agent used. [facility] 10:43:32* Test Item Value Reference Range Interpretation Comme [facility] POCT GLU (test code = 6759514402) 148 mg/dL 70-110 H Lab Interpretation (test cod e = 58156-9) Abnormal [facility] CenterACTIVATED PARTIAL THRMPLAS [id number] 18:39:45* Test Item Value Reference Range Interpretation Comme [facility] APTT Patient (test code = 3173-2) See_Comment [Automated message] The system which generated this result transmitted reference range: 23 - 38 Seconds. The reference range was not used to interpret this result as normal/abnormal. LYNDSAY (test code = LYNDSAY) The [facility] patient population mean normal value for aPTT is 30 seconds. Lab Interpretation (test code = 95932-6) Normal [facility] CenterPROTHROMBIN TIME / [id number] 18:37:42* Test Item Value Reference Range Interpretation Comme nts PROTIME PATIENT (test code = 5964-2) See_Comment [Automated [employer]] The system which generated this result transmitted reference range: 12.0 - 14.7 Seconds. The reference range was not used to interpret this result as normal/abnormal. INR (test code = 6301-6) Normal INR <1.1; Warfarin Therapeutic range 2.0 to 3.0 or 2.5 to 3.5, depending upon the indications. Lab Interpretation (test code = 38851-5) Normal [facility] CenterTROPONIN [id number] 18:32:01* Test Item Value Reference Range Interpretation Comments TROPONIN I (test code = 6812582526) 0.019 ng/mL See_Comment [Automated message] The system [...] of biotin. Lab Interpretation (test code = 89648-0) Normal [facility] CenterN-TERMINAL [id number] 18:29:01* Test Item Value Reference Range Interpretation Comme nts NT-proBNP (test code = 6640233133) 2770 pg/mL See_Comment H [Automated message] The system which generated this result transmitted reference range: <=125. The reference range was not used to interpret this result as normal/abnormal. LYNDSAY (test code = LYNDSAY) Biotin has been reported to cause a negative bias, interpret results relative to patient's use of biotin. Lab Interpretation (test code = 43421-5) [facility] CenterCOM. METABOLIC PANEL (54758)2022-07-31 18:21:42* Test Item Value Reference Range Interpretation Comme nts NA (test code = 0125927996) 136 mmol/L 135-145 K (test code = 9335119402) 4.6 mmol/L 3.5-5.0 CL (test code = 9884334267) 104 mmol/L 98-108 CO2 TOTAL (test code = 2501891469) 26 mmol/L 23-31 AGAP (test code = 0916829051) 2-16 BUN (test code = 3840285980) 9 mg/dL 7-23 GLUCOSE (test code = 6446174886) 97 mg/dL 70-110 CREATININE (test code = 3622722838) 0.64 mg/dL 0.50-1.04 TOTAL BILI (test code = 1368290423) 0.5 mg/dL 0.1-1.1 CALCIUM (test code = 2590884107) 8.2 mg/dL 8.6-10.6 L T PROTEIN (test code = 3030710762) 6.5 g/dL 6.3-8.2 ALBUMIN (test code = 6383306717) 3.9 g/dL 3.5-5.0 ALK PHOS (test code = 5449611154) 93 U/L 34-122 ALTv (test code = 1742-6) 18 U/L 5-35 AST(SGOT) (test code = 7075375849) 19 U/L 13-40 eGFR (test code = 8087462970) mL/min/1.73m2 LYNDSAY (test code = LYNDSAY) Association [...] imaging tests). Lab Interpretation (test code = 94333-9) [facility] CenterLIPASE2023-01-12 18:21:01* Test Item Value Reference Range Interpretation Comme nts LIPASE (test code = 6169653829) 54 U/L 0-220 Lab Interpretation (test cod e = 82960-4) Normal [facility] WITH [id number] 18:07:00* Test Item Value Reference Range Interpretation Comme nts WBC (test code = 6690-2) See_Comment [Automated [employer]] The system which generated this result transmitted reference range: 4.30 - 11.10 10*3/?L. The reference range was not used to interpret this result as normal/abnormal. RBC (test code = 789-8) See_Comment [Automated [employer]] The system which generated this result transmitted [...] g/dL 31.6-35.1 L RDW-SD (test code = 27729-0) 53.1 fL 39.0-49.9 H RDW-CV (test code = 788-0) 17.0 % 12.0-15.5 H PLT (test code = 777-3) See_Comment H [Automated messa ge] The system which generated this result transmitted reference range: 166 - 358 10*3/?L. The reference range was not used to interpret this result as normal/abnormal. MPV (test code = 93926-8) 8.2 fL 9.5-12.9 L NRBC/100 WBC (test code = 5900694374) See_Comment [Automated [employer] ssage] The system which generated this result transmitted reference range: 0.0 - 10.0 /100 WBCs. The reference range was not used to interpret this result as normal/abnormal. NRBC x10^3 (test code = 1374715737) See_Comment [Automated messa ge] The system which generated this result transmitted reference range: 10*3/?L. The reference range was not used to interpret this result as normal/abnormal. GRAN MAT (NEUT) % (test code = 770-8) 64.0 % IMM GRAN % (test code = 8974928543) 0.40 % LYMPH % (test code = 736-9) 27.3 % MONO % (test code = 5905-5) 6.5 % EOS % (test code = 713-8) 1.1 % BASO % (test code = 706-2) 0.7 % GRAN MAT x10^3(ANC) (test code = 7314872923) 5.46 10*3/uL 1.88-7.09 IMM GRAN x10^3 (test code = 0081151284) 0.03 10*3/uL 0.00-0.06 LYMPH x10^3 (test code = 731-0) 2.32 10*3/uL 1.32-3.29 MONO x10^3 (test code = 742-7) 0.55 10*3/uL 0.33-0.92 EOS x10^3 (test code = 711-2) 0.09 10*3/uL 0.03-0.39 BASO x10^3 (test code = 704-7) 0.06 10*3/uL 0.01-0.07 Lab Interpretation (test code = 30340-9) [facility] (NA, K, CL, CO2, GLUCOSE, BUN, CREATININE, CA)2022-05-08 06:37:01* Test Item Value Reference Range Interpretation Comme nts NA (test code = 3054559573) 137 mmol/L 135-145 K (test code = 3902029376) 3.8 mmol/L 3.5-5 CL (test code = 1396842470) 103 mmol/L 98-108 CO2 TOTAL (test code = 0919391075) 24 mmol/L 23-31 AGAP (test code = 7934090490) 2-16 BUN (test code = 3990968028) 13 mg/dL 7-23 GLUCOSE (test code = 5196513199) 90 mg/dL 70-110 CREATININE (test code = 1366034571) 0.69 mg/dL 0.5-1.04 CALCIUM (test code = 8882662777) 8.5 mg/dL 8.6-10.6 L eGFR (test code = 9672137785) mL/min/1.73m2 LYNDSAY (test code = LYNDSAY) Association [...] imaging tests). Lab Interpretation (test code = 08591-8) [facility] CenterMAGNESIUM2022-10-20 06:37:01* Test Item Value Reference Range Interpretation Comme nts MAGNESIUM (test code = 5515527926) 2.1 mg/dL 1.7-2.4 Lab Interpretation (test cod e = 76664-5) Normal [facility] CenterPHOSPHORUS2022-10-20 06:37:01* Test Item Value Reference Range Interpretation Comme nts PHOSPHORUS (test code = 7044955666) 4.7 mg/dL 2.5-5 Lab Interpretation (test cod e = 12985-9) Normal [facility] CenterCBC WITH [id number] 06:11:54* Test Item Value Reference Range Interpretation [...] 32.4 g/dL 31.6-35.1 RDW-SD (test code = 10800-8) 51.0 fL 39-49.9 H RDW-CV (test code = 788-0) 16.5 % 12-15.5 H PLT (test code = 777-3) See_Comment H [Automated messa ge] The system which generated this result transmitted reference range: 166 - 358 10*3/?L. The reference range was not used to interpret this result as normal/abnormal. MPV (test code = 66425-3) 8.3 fL 9.5-12.9 L NRBC/100 WBC (test code = 4405669217) See_Comment [Automated me ssage] The system which generated this result transmitted reference range: 0.0 - 10.0 /100 WBCs. The reference range was not used to interpret this result as normal/abnormal. NRBC x10^3 (test code = 8680961592) See_Comment [Automated messa ge] The system which generated this result transmitted reference range: 10*3/?L. The reference range was not used to interpret this result as normal/abnormal. GRAN MAT (NEUT) % (test code = 770-8) 64.5 % IMM GRAN % (test code = 3160171740) 0.50 % LYMPH % (test code = 736-9) 27.1 % MONO % (test code = 5905-5) 6.6 % EOS % (test code = 713-8) 0.6 % BASO % (test code = 706-2) 0.7 % GRAN MAT x10^3(ANC) (test code = 8464956028) 5.28 10*3/uL 1.88-7.09 IMM GRAN x10^3 (test code = 5401608792) 0.04 10*3/uL 0-0.06 LYMPH x10^3 (test code = 731-0) 2.22 10*3/uL 1.32-3.29 MONO x10^3 (test code = 742-7) 0.54 10*3/uL 0.33-0.92 EOS x10^3 (test code = 711-2) 0.05 10*3/uL 0.03-0.39 BASO x10^3 (test code = 704-7) 0.06 10*3/uL 0.01-0.07 Lab Interpretation (test code = 04979-5) Abnormal [facility] GLUCOSE (AUTOMATED)2022-05-07 01:18:10* Test Item Value Reference Range Interpretation Comme nts POCT GLU (test code = 4482201407) 120 mg/dL 70-110 H Lab Interpretation (test cod e = 33902-2) [facility]normal [facility] CenterType and Screen - ONCE [id number] 05:46:35* Test Item Value Reference Range Interpretation Comme nts ABO & RH (test code = 20) O POSITIVE Performed at [facility] Laboratory Services - [facility] Blood [address] Free: [phone] No. [id number] IAT (test code = 1185) Negative Performed at [facility] Laboratory Services - [facility] Blood [address] Free: [phone] No. [id number] [facility] CenterBASIC METABOLIC PANEL (NA, K, CL, CO2, GLUCOSE, BUN, CREATININE, CA)2022-05-05 08:22:57* Test Item Value Reference Range Interpretation Comme nts NA (test code = 9470956169) 136 mmol/L 135-145 K (test code = 0853803905) 4.9 mmol/L 3.5-5 CL (test code = 5868128763) 108 mmol/L 98-108 CO2 TOTAL (test code = 7960520344) 22 mmol/L 23-31 L AGAP (test code = 6487760840) 2-16 BUN (test code = 4984739728) 12 mg/dL 7-23 GLUCOSE (test code = 0175860291) 155 mg/dL 70-110 H CREATININE (test code = 9740000400) 0.63 mg/dL 0.5-1.04 CALCIUM (test code = 7298603324) 8.4 mg/dL 8.6-10.6 L eGFR (test code = 7704700423) mL/min/1.73m2 LYNDSAY (test code = LYNDSAY) Association [...] imaging tests). Lab Interpretation (test code = 03070-4) [facility]normal [facility] CenterPROTHROMBIN TIME / [id number] 08:22:37* Test Item Value Reference Range Interpretation Comme [facility] PROTIME PATIENT (test code = 5964-2) See_Comment [[employer]] The system which generated this result transmitted reference range: 10.1 - 12.6 Seconds. The reference range was not used to interpret this result as normal/abnormal. INR (test code = 6301-6) Normal INR <1.1; Warfarin Therapeutic range 2.0 to 3.0 or 2.5 to 3.5, depending upon the indications. Lab Interpretation (test code = 58634-6) Normal [facility] CenteraPTT2022-10-17 08:22:37* Test Item Value Reference Range Interpretation Comme [facility] APTT Patient (test code = 3173-2) See_Comment [[employer]] The system which generated this result transmitted reference range: 26 - 36 Seconds. The reference range was not used to interpret this result as normal/abnormal. Lab Interpretation (test code = 35020-5) Normal [facility] CenterFIBRINOGEN2022-10-17 08:22:37* Test Item Value Reference Range Interpretation Comme [facility] Fibrinogen (test code = 4445887255) 294 mg/dL 167-453 Lab Interpretation (test cod e = 09546-6) Normal [facility] WITH [id number] 08:15:01* Test Item Value Reference Range Interpretation [...] g/dL 31.6-35.1 L RDW-SD (test code = 84792-2) 52.9 fL 39-49.9 H RDW-CV (test code = 788-0) 16.8 % 12-15.5 H PLT (test code = 777-3) See_Comment H [Automated messa ge] The system which generated this result transmitted reference range: 166 - 358 10*3/?L. The reference range was not used to interpret this result as normal/abnormal. MPV (test code = 88913-0) 8.3 fL 9.5-12.9 L NRBC/100 WBC (test code = 1577914885) See_Comment [Automated me ssage] The system which generated this result transmitted reference range: 0.0 - 10.0 /100 WBCs. The reference range was not used to interpret this result as normal/abnormal. NRBC x10^3 (test code = 1916209030) See_Comment [Automated messa ge] The system which generated this result transmitted reference range: 10*3/?L. The reference range was not used to interpret this result as normal/abnormal. GRAN MAT (NEUT) % (test code = 770-8) 86.4 % IMM GRAN % (test code = 2784611415) 0.40 % LYMPH % (test code = 736-9) 11.7 % MONO % (test code = 5905-5) 1.1 % EOS % (test code = 713-8) 0.0 % BASO % (test code = 706-2) 0.4 % GRAN MAT x10^3(ANC) (test code = 6093711672) 6.36 10*3/uL 1.88-7.09 IMM GRAN x10^3 (test code = 0511883160) 0.03 10*3/uL 0-0.06 LYMPH x10^3 (test code = 731-0) 0.86 10*3/uL 1.32-3.29 L MONO x10^3 (test code = 742-7) 0.08 10*3/uL 0.33-0.92 L EOS x10^3 (test code = 711-2) 0.03-0.39 L BASO x10^3 (test code = 704-7) 0.03 10*3/uL 0.01-0.07 Lab Interpretation (test code = 45963-2) Abnormal [facility] CenterVITAMIN D, [id number] 20:14:03* Test Item Value Reference Range Interpretation Comme nts VIT D 25OH (test code = 68940-7) 22 ng/mL 25-80 L LYNDSAY (test code = LYNDSAY) Deficiency: <20 ng/mLInsufficiency: 20-24 ng/mLOptimal: 25-80 ng/mL Lab Interpretation (test code = 41557-7) [facility]normal [facility] CenterBASI MET[facility]OLIC PANEL (NA, K, CL, CO2, GLUCOSE, BUN, CREATININE, CA)2022-04-15 11:27:57* Test Item Value Reference Range Interpretation Comme nts NA (test code = 5884626561) 138 mmol/L 135-145 K (test code = 0681735984) 3.9 mmol/L 3.5-5 CL (test code = 9586340510) 106 mmol/L 98-108 CO2 TOTAL (test code = 9861968709) 23 mmol/L 23-31 AGAP (test code = 9222228256) 2-16 BUN (test code = 0696365120) 10 mg/dL 7-23 GLUCOSE (test code = 9852319459) 91 mg/dL 70-110 CREATININE (test code = 4540091755) 0.65 mg/dL 0.5-1.04 CALCIUM (test code = 6901784459) 8.1 mg/dL 8.6-10.6 L eGFR (test code = 6551975400) mL/min/1.73m2 LYNDSAY (test code = LYNDSAY) Association [...] imaging tests). Lab Interpretation (test code = 64732-2) [facility]normal [facility] CenterSTROKE Protocol - Transthoracic echo (TTE) 2022-04-14 22:07:33* Test Item Value Reference Range Interpretation Comme nts Height (test code = 8182799097) in Weight (test code = 9836370496) lbs Systolic BP (test code = 1440786428) mmHg Diastolic BP (test code = 8235930380) mmHg Heart Rate (test code = 9931389309) bpm BSA (test code = 6245929068) 1.94 m2 TASV (test code = 7532935616) 15.5 cm/s LVIDD (test code = 9606104068) 6.00 cm Left Ventricular End Diastolic Volume by Teichholz Method (test code = 1931222) 183.0 mL IVS (test code = 3153136598) 1.09 cm Interventricular Septum Diastolic Thickness by 2D (test code = 2257483) 1.09 cm LVPWD (test code = 2972843534) 0.94 cm PW (test code = 8912317618) 0.94 cm 0.6-1.1 EF(Teich) (test code = 6470155795) 40.30 % LVIDS (test code = 1618576331) 4.80 cm Left Ventricular End Systolic Volume by Teichholz Method (test code = 0968150) 109.2 mL FS (test code = 3929714151) 20 % EF - 2D (test code = 23394746) 40.30 % LVOT diameter (test code = 8137937687) 2.05 cm LVOT area (test code = 8497582324) 3.30 cm2 Ao root diam (test code = 6296941500) 3.10 cm Aortic root (test code = 3165330322) 3.1 cm Ao root annulus (test code = 5197906963) 3.1 cm LA size (test code = 3625705512) 4.2 cm LAV(MOD-sp4) (test code = 5993668092) 64.90 mL MV Peak A Evette (test code = 8714547307) 115.7 cm/s E wave decelartion time (test code = 6627665455) 0.15 s MV Peak E Evette (test code = 8971350340) 106.2 cm/s E/A ratio (test code = 6869052795) ratio LVOT stroke volume (test code = 2478931228) 48.30 cm3 LVOT peak evette (test code = 7056012349) 78.4 cm/s LVOT mn grad (test code = 5985497930) mmHg AV LVOT peak gradient (test code = 1356645392) mmHg LVOT peak VTI (test code = 2457623483) 14.7 cm LV V1 mean (test code = 7774852027) 51.40 cm/s Ao peak evette (test code = 9309610371) 154.7 cm/s AV area peak evette (test code = 4396828416) 1.7 cm2 Ao max PG (test code = 9028994460) 9.60 mm[Hg] AV peak gradient (test code = 3259951329) mmHg AV regurgitation pressure 1/2 time (test code = 4504320895) 257.3 ms AI dec slope (test code = 8747476717) 498.10 cm/s2 AI max evette (test code = 9128035034) 437.60 cm/s AI max PG (test code = 6445387759) 77.80 mm[Hg] Tapse (test code = 3814419740) 2.19 cm LA Volume Index (BP) (test code = 3554098598) 32.0 mL/m2 LA volume (BP) (test code = 7935649766) 62.1 mL LAV(MOD-sp2) (test code = 3618709851) 52.70 mL A4C EF (test code = 9017659981) 44.80 % EF(sp4-el) (test code = 3038476263) 45.20 % SV(MOD-sp4) (test code = 1529786098) 71.20 mL SV(sp4-el) (test code = 6173664294) 73.90 mL LV Diastolic Volume (BP) (test code = 6960973209) 146.3 mL A2C EF (test code = 1855194262) 52.00 % EF(MOD-bp) (test code = 7251091362) 46.70 % EF(sp2-el) (test code = 5433232385) 52.40 % LV Systolic Volume (BP) (test code = 1921239936) 77.9 mL SV(MOD-bp) (test code = 4653697219) 68.40 mL SV(MOD-sp2) (test code = 2067689170) 69.20 mL EF (test code = 2261292478) Left Ventricular Stroke Volume by 2-D Biplane-MOD (test code = 2460719) 68.4 mL Radiology Study observation (narrative) (test code = 70353-1) LYNDSAY (test code = LYNDSAY) ?Left?Ventricle: Left [...] agent used and saline contrast was performed. [facility]22-[facility]-14 16:48:36* Test Item Value Reference Range Interpretation Comme nts KEPPRA (test code = 7910239505) 12-46 L LYNDSAY (test code = LYNDSAY) Therapeutic range: 12-46 ?g/mL ? ?Toxic: Not well established.Test developed and characteristics determined by [facility] Laboratory Services. Lab Interpretation (test code = 68252-2) [facility] (Na, K, Cl, CO2, Glucose, BUN, Creatinine, Ca)2022-04-14 10:50:11* Test Item Value Reference Range Interpretation Comme nts NA (test code = 4002182560) 136 mmol/L 135-145 K (test code = 3731480316) 3.8 mmol/L 3.5-5 CL (test code = 6256601341) 105 mmol/L 98-108 CO2 TOTAL (test code = 0727644534) 25 mmol/L 23-31 AGAP (test code = 4016467115) 2-16 BUN (test code = 5536195035) 9 mg/dL 7-23 GLUCOSE (test code = 8897740763) 101 mg/dL 70-110 CREATININE (test code = 9519425520) 0.66 mg/dL 0.5-1.04 CALCIUM (test code = 8074638726) 8.1 mg/dL 8.6-10.6 L eGFR (test code = 5666882760) mL/min/1.73m2 LYNDSAY (test code = LYNDSAY) Association [...] imaging tests). Lab Interpretation (test code = 81769-9) [facility]Mag[facility], [id number] 10:50:11* Test Item Value Reference Range Interpretation Comme nts MAGNESIUM (test code = 1119195518) 1.9 mg/dL 1.7-2.4 Lab Interpretation (test cod e = 43490-2) Normal [facility] CenterThyroid Stimulating [id number] 22:21:44 * Test Item Value Reference Range Interpretation Comme nts TSH (test code = 1198208220) See_Comment Biotin has been reported to cause a negative bias, interpret results relative to patient's use of biotin. [Automated message] The system which generated this result transmitted reference range: 0.45 - 4.70 mIU/L. The reference range was not used to interpret this result as normal/abnormal. Lab Interpretation (test code = 51835-7) Normal [facility] CenterGLYCOSYLATED HEMOGLOBIN (A1C)2022-04-13 21:53:43* Test Item Value Reference Range Interpretation Comme nts HGB A1C (test code = 4548-4) 5.8 % 4-5.7 H LYNDSAY (test code = LYNDSAY) Reference RangesNormal: <5.7%Prediabetes: 5.7 - 6.4%Diabetes: > 6.5% Lab Interpretation (test code = 94927-6) [facility]normal [facility] CenterFASTING LIPID PANEL (58368)(TOTAL CHOLESTEROL, TRIGLYCERIDES, HDL)2022-04-13 21:34:53* Test Item Value Reference Range Interpretation Comme nts CHOL (test code = 2248805107) 201 mg/dL 120-200 H HDL (test code = 8525990641) 56 mg/dL See_Comment [Automated [employer]] The system which generated this result transmitted reference range: >=50. The reference range was not used to interpret this result as normal/abnormal. HDLC RATIO (test code = 0442656098) See_Comment [Automated messa ge] The system which generated this result transmitted reference range: <=4.5. The reference range was not used to interpret this result as normal/abnormal. TRIG (test code = 7678404163) 355 mg/dL 30-170 H LDL CHOL (test code = 38060-3) 74 mg/dL See_Comment [Automated [employer]] The system which generated this result transmitted reference range: <=160. The reference range was not used to interpret this result as normal/abnormal. VLDL (test code = 0983649971) 71 mg/dL 5-60 H Lab Interpretation (test code = 31615-4) [facility]normal [facility] CenterTroponin I - Code [id number] 18:46:27* Test Item Value Reference Range Interpretation Comments TROPONIN I (test code = 8995645445) 0.013 ng/mL See_Comment [Automated message] The system [...] of biotin. Lab Interpretation (test code = 08534-6) Normal [facility] CenterBasi Metabolic Panel (NA, K, CL, CO2, Glucose, BUN, Creatinine, CA) - Code Nylovp5589-65-51 18:35:07* Test Item Value Reference Range Interpretation Comme nts NA (test code = 8736616103) 136 mmol/L 135-145 K (test code = 6444125109) 4.3 mmol/L 3.5-5 CL (test code = 4230328995) 105 mmol/L 98-108 CO2 TOTAL (test code = 9646249012) 27 mmol/L 23-31 AGAP (test code = 4739431730) 2-16 BUN (test code = 8544061023) 8 mg/dL 7-23 GLUCOSE (test code = 6300836914) 130 mg/dL 70-110 H CREATININE (test code = 7777781612) 0.75 mg/dL 0.5-1.04 CALCIUM (test code = 3930526696) 8.5 mg/dL 8.6-10.6 L eGFR (test code = 2924601593) mL/min/1.73m2 LYNDSAY (test code = LYNDSAY) Association [...] imaging tests). Lab Interpretation (test code = 09693-8) [facility] CenteraPTT - Code Wtmmam2538-29-53 18:32:46* Test Item Value Reference Range Interpretation Comme nts APTT Patient (test code = 3173-2) See_Comment [Automated message] The system which generated this result transmitted reference range: 23 - 38 Seconds. The reference range was not used to interpret this result as normal/abnormal. LYNDSAY (test code = LYNDSAY) The [facility] patient population mean normal value for aPTT is 30 seconds. Lab Interpretation (test code = 72017-3) Normal [facility] CenterProthrombin Time / INR - Code Rfqwdj8011-76-83 18:30:45* Test Item Value Reference Range Interpretation [...] the indications. Lab Interpretation (test code = 99392-5) Normal [facility] CenterCBC without Diff - Code Eyzmqe5413-26-04 18:23:07* Test Item Value Reference Range Interpretation [...] result as normal/abnormal. MPV (test code = 30681-3) 8.1 fL 9.5-12.9 L RDW-CV (test code = 788-0) 16.1 % 12-15.5 H RDW-SD (test code = 37300-4) 49.2 fL 39-49.9 NRBC x10^3 (test code = 6364590175) See_Comment [Automated [employer] ge] The system which generated this result transmitted reference range: 10*3/?L. The reference range was not used to interpret this result as normal/abnormal. NRBC/100 WBC (test code = 0163149918) See_Comment [Automated [employer] ge] The system which generated this result transmitted reference range: 0.0 - 10.0 /100 WBCs. The reference range was not used to interpret this result as normal/abnormal. IPF % (test code = 2010476009) Lab Interpretation (test code = 01997-6) [id number] 21:06:40* Test Item Value Reference Range Interpretation Comments TROPONIN I (test code = 4639373973) 0.005 ng/mL See_Comment [Automated message] The system [...] of biotin. Lab Interpretation (test code = 74766-1) Normal [facility]. METABOLIC PANEL (31403)2021-11-23 20:55:42* Test Item Value Reference Range Interpretation Comme nts NA (test code = 2286004736) 137 mmol/L 135-145 K (test code = 7003503248) 4.3 mmol/L 3.5-5.0 CL (test code = 8725023492) 104 mmol/L 98-108 CO2 TOTAL (test code = 4216135577) 22 mmol/L 23-31 L AGAP (test code = 6043850645) 2-16 BUN (test code = 8944406054) 15 mg/dL 7-23 GLUCOSE (test code = 1500044546) 114 mg/dL 70-110 H CREATININE (test code = 4802969015) 0.68 mg/dL 0.50-1.04 TOTAL BILI (test code = 3051726323) 0.5 mg/dL 0.1-1.1 CALCIUM (test code = 2805820046) 9.1 mg/dL 8.6-10.6 T PROTEIN (test code = 4098121898) 7.3 g/dL 6.3-8.2 ALBUMIN (test code = 4750167409) 4.4 g/dL 3.5-5.0 ALK PHOS (test code = 2241237967) 243 U/L 34-122 H ALTv (test code = 1742-6) 24 U/L 5-35 AST(SGOT) (test code = 3495677730) 30 U/L 13-40 eGFR (test code = 2456871649) mL/min/1.73m2 LYNDSAY (test code = LYNDSAY) Association [...] imaging tests). Lab Interpretation (test code = 08146-4) [facility]normal [facility] CenterLIPASE2022-05-07 20:55:22* Test Item Value Reference Range Interpretation Comme nts LIPASE (test code = 2655805729) 96 U/L 0-220 Lab Interpretation (test cod e = 51806-0) Normal [facility] CenterPOCT [id number] 20:46:00* Test Item Value Reference Range Interpretation Comme nts POCT PREG (test code = 1605) negative On board controls acceptable with C Line (test code = 3574) present POCT PREG LOT # (test code = 3575) [id number] POCT PREG TEST DATE ( test code = 3576) 04/18/2023 Lab Interpretation (test cod e = 38920-9) Normal [facility] CenterCBC WITH [id number] 20:40:38* Test Item Value Reference Range Interpretation Comme nts WBC (test code = 6690-2) See_Comment [Automated [employer]] The system which generated this result transmitted reference range: 4.30 - 11.10 10*3/?L. The reference range was not used to interpret this result as normal/abnormal. RBC (test code = 789-8) See_Comment [Automated [employer]] The system which generated this result transmitted [...] 31.8 g/dL 31.6-35.1 RDW-SD (test code = 47724-2) 53.7 fL 39.0-49.9 H RDW-CV (test code = 788-0) 17.2 % 12.0-15.5 H PLT (test code = 777-3) See_Comment H [Automated messa ge] The system which generated this result transmitted reference range: 166 - 358 10*3/?L. The reference range was not used to interpret this result as normal/abnormal. MPV (test code = 14175-3) 8.5 fL 9.5-12.9 L NRBC/100 WBC (test code = 6157917496) See_Comment [Automated [employer] ssage] The system which generated this result transmitted reference range: 0.0 - 10.0 /100 WBCs. The reference range was not used to interpret this result as normal/abnormal. NRBC x10^3 (test code = 1767437964) <0.01 See_Comment [Automated messa ge] The system which generated this result transmitted reference range: 10*3/?L. The reference range was not used to interpret this result as normal/abnormal. GRAN MAT (NEUT) % (test code = 770-8) 53.7 % IMM GRAN % (test code = 3773156656) 0.90 % LYMPH % (test code = 736-9) 32.6 % MONO % (test code = 5905-5) 10.1 % EOS % (test code = 713-8) 1.5 % BASO % (test code = 706-2) 1.2 % GRAN MAT x10^3(ANC) (test code = 9864464032) 4.98 10*3/uL 1.88-7.09 IMM GRAN x10^3 (test code = 9170510920) 0.08 10*3/uL 0.00-0.06 H LYMPH x10^3 (test code = 731-0) 3.02 10*3/uL 1.32-3.29 MONO x10^3 (test code = 742-7) 0.94 10*3/uL 0.33-0.92 H EOS x10^3 (test code = 711-2) 0.14 10*3/uL 0.03-0.39 BASO x10^3 (test code = 704-7) 0.11 10*3/uL 0.01-0.07 H Lab Interpretation (test code = 45823-5) [facility]normal [facility] CenterPOCT GLUCOSE (AUTOMATED)2021-11-23 20:17:33* Test Item Value Reference Range Interpretation Comme nts POCT GLU (test code = 6791947770) 111 mg/dL 70-110 H Notified Provide r Lab Interpretation (test code = 72291-8) Abnormal [facility] TEST, THINPREP, [id number] 00:00:00 * Test Item Value Reference Range Interpretation Comme nts SOURCE: (test code = 8001) Endocervical SLIDES: (test code = 8011) 1 LMP: (test code = 8021) 06/03/2021 SPECIMEN ADEQUACY: (test code = 50058) (NOTE) INTERPRETATION: (test code = 49052) ASCUS/EPITH. ABNORMALITY; SEE BELOW TECHNICAL DEVELOPER: (test code = 8101) [facility] CenterNE(ASC)[facility] PATHOLOGIST INTERPRETATION BY: (test code = 8122) Nahid Russell M.D. LOCATION: (test code = 76509) (NOTE) CPT: (test code = 8140) (NOTE) PAP TEST, THINPREP, [id number] 00:00:00* Test Item Value Reference Range Interpretation Comme nts SOURCE: (test code = 8001) Endocervical SLIDES: (test code = 8011) 1 LMP: (test code = 8021) 06/03/2021 SPECIMEN ADEQUACY: (test code = 32168) (NOTE) INTERPRETATION: (test code = 68358) ASCUS/EPITH. ABNORMALITY; SEE BELOW TECHNICAL DEVELOPER: (test code = 8101) Anusha DerickNE(ASC)[facility] PATHOLOGIST INTERPRETATION BY: (test code = 8122) aNhid Russell M.D. LOCATION: (test code = 49140) (NOTE) CPT: (test code = 8140) (NOTE) PAP TEST, THINPREP, [id number] 00:00:00* Test Item Value Reference Range Interpretation Comme nts SOURCE: (test code = 8001) Endocervical SLIDES: (test code = 8011) 1 LMP: (test code = 8021) 06/03/2021 SPECIMEN ADEQUACY: (test code = 89555) (NOTE) INTERPRETATION: (test code = 81732) ASCUS/EPITH. ABNORMALITY; SEE BELOW TECHNICAL DEVELOPER: (test code = 8101) CHANA Thacker(ASCP)[facility] PATHOLOGIST INTERPRETATION BY: (test code = 8122) Nahid Russell M.D. LOCATION: (test code = 15805) (NOTE) CPT: (test code = 8140) (NOTE) PAP TEST, THINPREP, [id number] 00:00:00* Test Item Value Reference Range Interpretation Comme nts SOURCE: (test code = 8001) Endocervical SLIDES: (test code = 8011) 1 LMP: (test code = 8021) 06/03/2021 SPECIMEN ADEQUACY: (test code = 98431) (NOTE) INTERPRETATION: (test code = 61143) ASCUS/EPITH. ABNORMALITY; SEE BELOW TECHNICAL DEVELOPER: (test code = 8101) CHANA Thacker(ASCP)[facility] PATHOLOGIST INTERPRETATION BY: (test code = 8122) Nahid Russell M.D. LOCATION: (test code = 75587) (NOTE) CPT: (test code = 8140) (NOTE) HPV HIGH RISK WITH GENOTYPE, [id number] 00:00:00* Test Item Value Reference Range Interpretation Comme nts HPV HIGH RISK INTERP (test c ode = 36165) POSITIVE HPV 16 (test code = 87546) POSITIVE HPV 18 (test code = 91211) NEGATIVE HPV, HR, OTHER GENOTYPES (te st code = 31242) POSITIVE HPV HIGH RISK WITH GENOTYPE, [id number] 00:00:00* Test Item Value Reference Range Interpretation Comme nts HPV HIGH RISK INTERP (test c ode = 84153) POSITIVE HPV 16 (test code = 99492) POSITIVE HPV 18 (test code = 43060) NEGATIVE HPV, HR, OTHER GENOTYPES (te st code = 39640) POSITIVE HPV HIGH RISK WITH GENOTYPE, [id number] 00:00:00* Test Item Value Reference Range Interpretation Comme nts HPV HIGH RISK INTERP (test c ode = 54718) POSITIVE HPV 16 (test code = 71679) POSITIVE HPV 18 (test code = 33219) NEGATIVE HPV, HR, OTHER GENOTYPES (te st code = 44446) POSITIVE HPV HIGH RISK WITH GENOTYPE, [id number] 00:00:00* Test Item Value Reference Range Interpretation Comme nts HPV HIGH RISK INTERP (test c ode = 41917) POSITIVE HPV 16 (test code = 45066) POSITIVE HPV 18 (test code = 90089) NEGATIVE HPV, HR, OTHER GENOTYPES (te st code = 89120) POSITIVE [id number] 03:22:48* Test Item Value Reference Range Interpretation Comme nts APPEARANCE (test code = 7202379953) Hazy Clear A COLOR (test code = 8135344505) Yellow Yellow PH (test code = 5033935557) 4.8-8.0 SP GRAVITY (test code = 7687403942) 1.003-1.030 GLU U QUAL (test code = 4482238396) Normal Normal BLOOD (test code = 5514082977) Negative Negative Interference fro m ascorbic acid may cause false negative results. KETONES (test code = 3342804278) 5 mg/dL Negative A PROTEIN (test code = 2887-8) Negative Negative UROBILIN (test code = 0324722486) 4.0 mg/dL Normal A BILIRUBIN (test code = 3518297345) Negative Negative NITRITE (test code = 6451824023) Negative Negative LEUK GRUPO (test code = 8215854537) Negative Negative RBC/HPF (test code = 8021868799) See_Comment [Automated [employer]] The system which generated this result transmitted reference range: 0 - 3 HPF. The reference range was not used to interpret this result as normal/abnormal. WBC/HPF (test code = 7371171534) <1 See_Comment [Automated [employer]] The system which generated this result transmitted reference range: 0 - 5 HPF. The reference range was not used to interpret this result as normal/abnormal. BACTERIA (test code = 7005901862) Few Negative A SQ EPITH (test code = 5988659791) HPF Lab Interpretation (test code = 22482-5) Abnormal [facility] [id number] 03:22:48* Test Item Value Reference Range Interpretation Comme nts APPEARANCE (test code = 8933012445) Hazy Clear A COLOR (test code = 3618945000) Yellow Yellow PH (test code = 9428871860) 4.8-8.0 SP GRAVITY (test code = 8563026775) 1.003-1.030 GLU U QUAL (test code = 9371866112) Normal Normal BLOOD (test code = 5269512831) Negative Negative KETONES (test code = 6860178768) 5 mg/dL Negative A PROTEIN (test code = 2887-8) Negative Negative UROBILIN (test code = 5668813489) 4.0 mg/dL Normal A BILIRUBIN (test code = 3791895762) Negative Negative NITRITE (test code = 1285992667) Negative Negative LEUK GRUPO (test code = 2401062742) Negative Negative RBC/HPF (test code = 0731506260) See_Comment [Automated [employer]] The system which generated this result transmitted reference range: 0 - 3 HPF. The reference range was not used to interpret this result as normal/abnormal. WBC/HPF (test code = 3040965547) <1 See_Comment [Automated [employer]] The system which generated this result transmitted reference range: 0 - 5 HPF. The reference range was not used to interpret this result as normal/abnormal. BACTERIA (test code = 9917369175) Few Negative A SQ EPITH (test code = 9079024270) HPF Lab Interpretation (test code = 71091-2) Abnormal [facility] [id number] 02:45:00* Test Item Value Reference Range Interpretation Comments TROPONIN I (test code = 0466097222) 0.002 ng/mL See_Comment [Automated message] The system [...] of biotin. Lab Interpretation (test code = 84464-3) [facility]TR[facility] [id number] 02:45:00* Test Item Value Reference Range Interpretation Comme nts TROPONIN I (test code = 7269824506) 0.002 ng/mL See_Comment [Automated messa ge] The system which generated this result transmitted reference range: <=0.034. The reference range was not used to interpret this result as normal/abnormal. LYNDSAY (test code = LYNDSAY) Lab Interpretation (test code = 75973-2) Normal [facility] CenterN-TERMINAL [id number] 02:41:57* Test Item Value Reference Range Interpretation Comme nts NT-proBNP (test code = 8259070279) 169 pg/mL See_Comment H [Automated message] The system which generated this result transmitted reference range: <=125. The reference range was not used to interpret this result as normal/abnormal. LYNDSAY (test code = LYNDSAY) Biotin has been reported to cause a negative bias, interpret results relative to patient's use of biotin. Lab Interpretation (test code = 11000-0) [facility]normal [facility]N-TERMINAL [id number] 02:41:57* Test Item Value Reference Range Interpretation Comme nts NT-proBNP (test code = 7059913199) 169 pg/mL See_Comment H [Automated [employer]] The system which generated this result transmitted reference range: <=125. The reference range was not used to interpret this result as normal/abnormal. LYNDSAY (test code = LYNDSAY) Lab Interpretation (test code = 82708-4) Abnormal [facility]. METABOLIC PANEL (42128)2021-03-17 02:09:13* Test Item Value Reference Range Interpretation Comme nts NA (test code = 5506249014) 137 mmol/L 135-145 K (test code = 0932729378) 4.2 mmol/L 3.5-5.0 CL (test code = 7811401709) 102 mmol/L 98-108 CO2 TOTAL (test code = 4563818509) 25 mmol/L 23-31 AGAP (test code = 0477367943) 2-16 BUN (test code = 8529467754) 18 mg/dL 7-23 GLUCOSE (test code = 6993330047) 144 mg/dL 70-110 H CREATININE (test code = 8897438988) 0.77 mg/dL 0.50-1.04 TOTAL BILI (test code = 5441508487) 0.4 mg/dL 0.1-1.1 CALCIUM (test code = 1941771985) 8.9 mg/dL 8.6-10.6 T PROTEIN (test code = 1536887860) 6.8 g/dL 6.3-8.2 ALBUMIN (test code = 4465856929) 3.9 g/dL 3.5-5.0 ALK PHOS (test code = 3289928918) 84 U/L 34-122 ALTv (test code = 1742-6) 13 U/L 5-35 AST(SGOT) (test code = 7210701168) 17 U/L 13-40 eGFR (test code = 8859833061) mL/min/1.73m2 LYNDSAY (test code = LYNDSAY) Association [...] imaging tests). Lab Interpretation (test code = 40957-1) [facility] MET[facility]OLIC PANEL (18557)2021-03-17 02:09:13* Test Item Value Reference Range Interpretation Comme nts NA (test code = 8507501707) 137 mmol/L 135-145 K (test code = 7196631563) 4.2 mmol/L 3.5-5.0 CL (test code = 6415590862) 102 mmol/L 98-108 CO2 TOTAL (test code = 6886412687) 25 mmol/L 23-31 AGAP (test code = 3177093646) 2-16 BUN (test code = 1307779045) 18 mg/dL 7-23 GLUCOSE (test code = 2286415310) 144 mg/dL 70-110 H CREATININE (test code = 4213272977) 0.77 mg/dL 0.50-1.04 TOTAL BILI (test code = 2727507927) 0.4 mg/dL 0.1-1.1 CALCIUM (test code = 0069944033) 8.9 mg/dL 8.6-10.6 T PROTEIN (test code = 0464704868) 6.8 g/dL 6.3-8.2 ALBUMIN (test code = 7807192033) 3.9 g/dL 3.5-5.0 ALK PHOS (test code = 7601646199) 84 U/L 34-122 ALTv (test code = 1742-6) 13 U/L 5-35 AST(SGOT) (test code = 0236030295) 17 U/L 13-40 eGFR (test code = 0366066022) mL/min/1.73m2 LYNDSAY (test code = LYNDSAY) Lab Interpretation (test cod e = 78654-6) Abnormal [facility] WITH [id number] 01:56:33* Test Item Value Reference Range Interpretation Comme nts WBC (test code = 6690-2) See_Comment H [Automated [employer]] The system which generated this result [...] g/dL 31.6-35.1 L RDW-SD (test code = 15667-8) 55.5 fL 39.0-49.9 H RDW-CV (test code = 788-0) 18.9 % 12.0-15.5 H PLT (test code = 777-3) See_Comment H [Automated messa ge] The system which generated this result transmitted reference range: 166 - 358 10*3/?L. The reference range was not used to interpret this result as normal/abnormal. MPV (test code = 98552-0) 8.2 fL 9.5-12.9 L NRBC/100 WBC (test code = 3245569754) See_Comment [Automated [employer] ssage] The system which generated this result transmitted reference range: 0.0 - 10.0 /100 WBCs. The reference range was not used to interpret this result as normal/abnormal. NRBC x10^3 (test code = 4236177980) <0.01 See_Comment [Automated messa ge] The system which generated this result transmitted reference range: 10*3/?L. The reference range was not used to interpret this result as normal/abnormal. GRAN MAT (NEUT) % (test code = 770-8) 61.7 % IMM GRAN % (test code = 5931955253) 0.80 % LYMPH % (test code = 736-9) 28.5 % MONO % (test code = 5905-5) 6.3 % EOS % (test code = 713-8) 1.8 % BASO % (test code = 706-2) 0.9 % GRAN MAT x10^3(ANC) (test code = 3618304205) 7.31 10*3/uL 1.88-7.09 H IMM GRAN x10^3 (test code = 4620899877) 0.09 10*3/uL 0.00-0.06 H LYMPH x10^3 (test code = 731-0) 3.38 10*3/uL 1.32-3.29 H MONO x10^3 (test code = 742-7) 0.75 10*3/uL 0.33-0.92 EOS x10^3 (test code = 711-2) 0.21 10*3/uL 0.03-0.39 BASO x10^3 (test code = 704-7) 0.11 10*3/uL 0.01-0.07 H Lab Interpretation (test code = 55329-8) Abnormal [facility] WITH [id number] 01:56:33* Test Item Value Reference Range Interpretation [...] g/dL 31.6-35.1 L RDW-SD (test code = 29138-4) 55.5 fL 39.0-49.9 H RDW-CV (test code = 788-0) 18.9 % 12.0-15.5 H PLT (test code = 777-3) See_Comment H [Automated messa ge] The system which generated this result transmitted reference range: 166 - 358 10*3/?L. The reference range was not used to interpret this result as normal/abnormal. MPV (test code = 90693-4) 8.2 fL 9.5-12.9 L NRBC/100 WBC (test code = 3141109441) See_Comment [Automated me ssage] The system which generated this result transmitted reference range: 0.0 - 10.0 /100 WBCs. The reference range was not used to interpret this result as normal/abnormal. NRBC x10^3 (test code = 0418131006) <0.01 See_Comment [Automated messa ge] The system which generated this result transmitted reference range: 10*3/?L. The reference range was not used to interpret this result as normal/abnormal. GRAN MAT (NEUT) % (test code = 770-8) 61.7 % IMM GRAN % (test code = 9627941372) 0.80 % LYMPH % (test code = 736-9) 28.5 % MONO % (test code = 5905-5) 6.3 % EOS % (test code = 713-8) 1.8 % BASO % (test code = 706-2) 0.9 % GRAN MAT x10^3(ANC) (test code = 0948943722) 7.31 10*3/uL 1.88-7.09 H IMM GRAN x10^3 (test code = 1402806225) 0.09 10*3/uL 0.00-0.06 H LYMPH x10^3 (test code = 731-0) 3.38 10*3/uL 1.32-3.29 H MONO x10^3 (test code = 742-7) 0.75 10*3/uL 0.33-0.92 EOS x10^3 (test code = 711-2) 0.21 10*3/uL 0.03-0.39 BASO x10^3 (test code = 704-7) 0.11 10*3/uL 0.01-0.07 H Lab Interpretation (test code = 96830-6) Abnormal [facility]- (ID NOW RAPID TESTING)2021-03-17 01:38:12* Test Item Value Reference Range Interpretation Comme nts SARS-CoV-2 Rapid ID NOW (test code = 95226-6) Not Detected Not Detected LYNDSAY (test code = LYNDSAY) ID NOW COVID-19 As say is an isothermal nucleic acid amplification test intended for the qualitative detection of nucleic acid from SARS-CoV-2 viral RNA in nasopharyngeal ([employer]IT [employer]OUCH[employer] CLERK) specimens. It is used under Emergency Use [...] clinically indicated. Lab Interpretation (test code = 96259-6) Normal [place] [address] (ID NOW RAPID TESTING)2021-03-17 01:38:12* Test Item Value Reference Range Interpretation Comme nts SARS-CoV-2 Rapid ID NOW (raisa t code = 80162-9) Not Detected Not Detected LYNDSAY (test code = LYNDSAY) Lab Interpretation (test cod e = 72236-8) Normal [place] [address] (ID NOW RAPID TESTING)2021-02-19 17:42:45* Test Item Value Reference Range Interpretation Comme nts SARS-CoV-2 Rapid ID NOW (test code = 76419-5) Not Detected Not Detected LYNDSAY (test code = LYNDSAY) ID NOW COVID-19 As say is an isothermal nucleic acid amplification test intended for the qualitative detection of nucleic acid from SARS-CoV-2 viral RNA in nasopharyngeal ([employer]) specimens. It is used under Emergency Use [...] clinically indicated. Lab Interpretation (test code = 61975-3) [facility] [id number] 17:24:55Thickening of the gastric antrum and duodenal [...] Electronicallysigned by James Freeman at 02/19/2021 12:24 PMMethod[facility] CenterUrinalysis2021-08-03 17:03:40* Test Item Value Reference Range Interpretation Comme nts APPEARANCE (test code = 5455473867) Hazy Clear A COLOR (test code = 8092238340) Mabel Yellow A PH (test code = 7460892038) 4.8-8.0 SP GRAVITY (test code = 8445407854) 1.003-1.030 H GLU U QUAL (test code = 7788471081) Normal Normal BLOOD (test code = 2840772588) Negative Negative KETONES (test code = 8231803332) 5 mg/dL Negative A PROTEIN (test code = 2887-8) 30 mg/dL Negative A UROBILIN (test code = 0647812555) 4.0 mg/dL Normal A BILIRUBIN (test code = 9267023839) 4 mg/dL Negative A NITRITE (test code = 5696431953) Negative Negative LEUK GRUPO (test code = 3595312887) Negative Negative RBC/HPF (test code = 6763132001) See_Comment H [Automated messa ge] The system which generated this result transmitted reference range: 0 - 3 HPF. The reference range was not used to interpret this result as normal/abnormal. WBC/HPF (test code = 2308553395) See_Comment H [Automated messa ge] The system which generated this result transmitted reference range: 0 - 5 HPF. The reference range was not used to interpret this result as normal/abnormal. BACTERIA (test code = 6926319722) Few Negative A MUCOUS (test code = 8719269454) Moderate Negative LPF A SQ EPITH (test code = 4549308211) HPF CA OXALATE (test code = 4646304243) See_Comment H [Automated messa ge] The system which generated this result transmitted reference range: <=1 HPF. The reference range was not used to interpret this result as normal/abnormal. Ictotest (test code = 3155629589) Negative Lab Interpretation (test code = 65327-4) Abnormal [facility] CenterComplete Metabolic [id number] 16:34:55* Test Item Value Reference Range Interpretation Comme nts NA (test code = 5140425409) 139 mmol/L 135-145 K (test code = 0734923132) 4.3 mmol/L 3.5-5.0 CL (test code = 0125098461) 105 mmol/L 98-108 CO2 TOTAL (test code = 7575654704) 26 mmol/L 23-31 AGAP (test code = 8810357925) 2-16 BUN (test code = 2217044703) 11 mg/dL 7-23 GLUCOSE (test code = 9688804196) 95 mg/dL 70-110 CREATININE (test code = 1420524547) 0.70 mg/dL 0.50-1.04 TOTAL BILI (test code = 4292891082) 0.6 mg/dL 0.1-1.1 CALCIUM (test code = 5762069268) 8.9 mg/dL 8.6-10.6 T PROTEIN (test code = 8499185427) 7.7 g/dL 6.3-8.2 ALBUMIN (test code = 6763439823) 4.1 g/dL 3.5-5.0 ALK PHOS (test code = 5278363604) 79 U/L 34-122 ALTv (test code = 1742-6) 10 U/L 5-35 AST(SGOT) (test code = 4283457241) 22 U/L 13-40 eGFR (test code = 8454411014) mL/min/1.73m2 LYNDSAY (test code = LYNDSAY) Association [...] urine or abnormalities in imaging tests). [facility] CenterLipase, [id number] 16:34:14* Test Item Value Reference Range Interpretation Comme nts LIPASE (test code = 2828922831) 45 U/L 0-220 Lab Interpretation (test cod e = 81249-8) Normal [facility] CenterCBC with [id number] 16:21:12* Test Item Value Reference Range Interpretation Comme nts WBC (test code = 6690-2) See_Comment [Automated Portfoliuma Acucela] The system which generated this result transmitted reference range: 4.30 - 11.10 10*3/?L. The reference range was not used to interpret this result as normal/abnormal. RBC (test code = 789-8) See_Comment [Automated Portfoliuma Acucela] The system which generated this result transmitted [...] g/dL 31.6-35.1 L RDW-SD (test code = 03623-1) 54.4 fL 39.0-49.9 H RDW-CV (test code = 788-0) 18.3 % 12.0-15.5 H PLT (test code = 777-3) See_Comment H [Automated Portfoliuma Acucela] The system which generated this result transmitted reference range: 166 - 358 10*3/?L. The reference range was not used to interpret this result as normal/abnormal. MPV (test code = 02132-7) 8.5 fL 9.5-12.9 L NRBC/100 WBC (test code = 9596739018) See_Comment [Automated me ssage] The system which generated this result transmitted reference range: 0.0 - 10.0 /100 WBCs. The reference range was not used to interpret this result as normal/abnormal. NRBC x10^3 (test code = 0258665394) <0.01 See_Comment [Automated messa ge] The system which generated this result transmitted reference range: 10*3/?L. The reference range was not used to interpret this result as normal/abnormal. GRAN MAT (NEUT) % (test code = 770-8) 78.3 % IMM GRAN % (test code = 5216039981) 0.40 % LYMPH % (test code = 736-9) 15.4 % MONO % (test code = 5905-5) 4.8 % EOS % (test code = 713-8) 0.1 % BASO % (test code = 706-2) 1.0 % GRAN MAT x10^3(ANC) (test code = 3086731826) 7.15 10*3/uL 1.88-7.09 H IMM GRAN x10^3 (test code = 4368461213) 0.04 10*3/uL 0.00-0.06 LYMPH x10^3 (test code = 731-0) 1.41 10*3/uL 1.32-3.29 MONO x10^3 (test code = 742-7) 0.44 10*3/uL 0.33-0.92 EOS x10^3 (test code = 711-2) <0.03 0.03-0.39 L BASO x10^3 (test code = 704-7) 0.09 10*3/uL 0.01-0.07 H Lab Interpretation (test code = 14590-6) Abnormal [facility]
[2023-08-11 22:46] LABS: Specific Gravity < 1.005 (1.005-1.030); Urine Bacteria None Seen /HPF (<20); Urine Bilirubin NEGATIVE (Negative); Urine Blood Negative (Negative); Urine Clarity Turbid (Clear); Urine Color Colorless (Yellow); Urine Glucose NEGATIVE (Negative); Urine Protein NEGATIVE (Negative); Urine RBC None Seen /HPF (None Seen); Urine Urobilinogen Normal (Normal); Urine pH 5.5 (5.0-7.0)
[2023-08-11 22:54] LABS: Barbiturates NEGATIVE (NEGATIVE); Benzodiazepines NEGATIVE (NEGATIVE); Cocaine POSITIVE (NEGATIVE); METHAMPHETAM NEGATIVE (NEGATIVE); Methadone NEGATIVE (NEGATIVE); Opiates NEGATIVE (NEGATIVE); Phencyclidine NEGATIVE (NEGATIVE); THC Cannibis POSITIVE (NEGATIVE)
[2023-08-11 23:00] LABS: Absolute Lymphocytes (CBC) 2.2 K/uL (0.7-4.9); Hematocrit 35.2 % (36.0-45.0); Lymphocytes % 35.4 % (15.3-44.8); MCV 87.1 fL (80-100); MPV 6.7 fL (7.6-11.3); Platelets 458 thou/uL (152-406); RBC Red Blood Cell Count 4.05 M/uL (3.86-4.86)
[2023-08-11 23:02] LABS: Protime INR 0.98
[2023-08-11 23:04] LABS: ALT/SGPT 16 U/L (13-56); AST/SGOT 15 U/L (15-37); Albumin 3.4 g/dL (3.4-5.0); Alkaline Phosphatase 85 U/L (45-117); BUN Blood Urea Nitrogen 6 mg/dL (7-18); Bicarbonate 20 mEq/L (21-32); Bilirubin Direct < 0.1 mg/dL (0-0.2); Bilirubin Indirect, Calculated ND mg/dL (0.2-0.8); Bilirubin Total 0.2 mg/dL (0.2-1.0); Glomerular Filtration Rate 92 ml/min (=/>90); Glucose Level 86 mg/dL (74-106); Potassium 3.2 mEq/L (3.5-5.1); Protein, Total 7.1 g/dL (6.4-8.2); Sodium Level 140 mEq/L (136-145)
--- NOTE | 2023-08-12 00:37 | ER ---
Nurse's Notes [facility] Name: Heather Coon Age: 53 yrs Sex: Female : 1970 Arrival Date: 08/11/2023 Time: 22:03 Bed 3 Private MD: Diagnosis: Alcohol dependence with intoxication;Cocaine abuse;Tachycardia, unspecified;Irritability and anger Presentation: 08/11 22:11 Chief complaint: EMS states: toned out for seizures; hx of seizures; pt A\\T\\Ox4; pt km8 seizing upon arrival, A\\T\\Ox4 after. Coronavirus screen: Client denies travel out of the [place] in the last 14 days. Ebola Screen: No symptoms or risks identified at this time. Initial Sepsis Screen: Does the patient meet any 2 criteria? HR > 90 bpm. Does the patient have a suspected source of infection? No. Patient's initial sepsis screen is negative. Risk Assessment: Do you want to hurt yourself or someone else? Patient reports no desire to harm self or others. Onset of symptoms was August 11, 2023. 22:11 Method Of Arrival: EMS 8 22:11 Acuity: ANDER 2 km8 22:11 Care prior to arrival: Medication(s) given: zofran 4 mg, Ativan 4mg IM IV initiated. 20 km8 GA, in the right forearm, Glucose check: 75. Triage Assessment: 22:11 General: Appears in no apparent distress. Behavior is cooperative, anxious. Pain: km8 Complains of pain in back Pain currently is 8 out of 10 on a pain scale. Quality of pain is described as aching. EENT: No signs and/or symptoms were reported regarding the EENT system. Neuro: Level of Consciousness is awake, alert, obeys commands, Oriented to person, place, time, situation, Reports a syncopal episode Seizure activity reported prior to arrival. Seizure lasted approximately 10 minutes. pt A\\T\\Ox4. Cardiovascular: Denies chest pain, Capillary refill < 3 seconds Patient's skin is warm and dry. Rhythm is sinus tachycardia. Respiratory: Airway is patent Respiratory effort is even, labored, Respiratory pattern is regular, symmetrical. GI: No signs and/or symptoms were reported involving the gastrointestinal system. : No signs and/or symptoms were reported regarding the genitourinary system. Derm: Skin is intact, Skin is dry, Skin is pink, warm \\T\\ dry. Skin temperature is warm. Musculoskeletal: Circulation, motion, and sensation intact. Range of motion: intact in all extremities. Historical: - Allergies: 22:42 fluoxetine; 8 22:42 Green Tea; 22:42 Keppra; not an allergy; km8 - Home Meds: 22:42 Depakote Oral [Active]; 8 - PMHx: 22:42 Anxiety; Arthritis; Bipolar disorder; Cancer-Cervical; Chronic obstructive lung km8 disease; Chronic pain; Congestive heart failure; Depression; Diverticulitis; Herniated Back Disc; Hypertension; intestinal mass; Myocardial infarction; pt reports hx of seizures; Spastic Muscles; stroke; - PSHx: 22:42 Tonsillectomy; foot; Cholecystectomy; cervical fusion; back surgery (cervical fusion); km8 - Social history:: Smoking status: unknown Patient uses alcohol, on a daily basis. street drugs, marijuana. - Family history:: not pertinent. Screenin:11 [facility] ED Fall Risk Assessment (Adult) History of falling in the last 3 months, km8 including since admission Yes- single mechanical fall (1 pt) Confusion or Disorientation No (0 pts) Intoxicated or Sedated No (0 pts) Impaired Gait Yes (1 pt) Mobility Assist Device Used No (0 pt) Altered Elimination No (0 pt) Score/Fall Risk Level 0 - 2 = Low Risk Oriented to surroundings, Maintained a safe environment, Educated pt \\T\\ family on fall prevention, incl call for assistance when getting out of bed, Assessed \\T\\ reinforced patient's understanding of fall precautions. Abuse screen: Denies threats or abuse. Denies injuries from another. Nutritional screening: No deficits noted. Tuberculosis screening: No symptoms or risk factors identified. Assessment: 22:11 General: see triage notes/assessment. km8 23:15 Reassessment: Patient appears in no apparent distress at this time. Patient and/or 8 family updated on plan of care and expected duration. Pain level reassessed. Patient is alert, oriented x 3, equal unlabored respirations, skin warm/dry/pink. Neuro: Level of Consciousness is awake, alert, obeys commands, Oriented to person, place, time, situation. Cardiovascular: Capillary refill < 3 seconds Patient's skin is warm and dry. Respiratory: Airway is patent Respiratory effort is even, unlabored, Respiratory pattern is regular, symmetrical. 08/12 00:07 Reassessment: pt refused trazodone; Dr. Myles notified. 8 00:49 Reassessment: pt demanding to leave; IV taken out, pt began to have seizure like km8 activity before Monroy was taken out; Dr. Myles notified; Doctor spoke with pt's about monitoring her, getting a new IV, an EKG, and a troponin level; stated "she doesn't want to stay"; minutes later, patient woke up A\\T\\Ox4 upset with doctor Myles and stating she wants to leave; Monroy d/c'd per pt's request, pt able to transfer to wheelchair; pt refused to sign AMA form or ER paperwork; . Vital Signs: 08/11 22:18 BP 113 / 80; Pulse 124; Resp 20; Temp 98.3; Pulse Ox 94% ; vc1 22:30 BP 125 / 84; Pulse 126; Resp 18; Pulse Ox 96% on R/A; km8 23:00 BP 132 / 86; Pulse 115; Resp 18; Pulse Ox 97% on R/A; km8 08/12 00:20 BP 132 / 81; Pulse 110; Resp 18; Pulse Ox 98% on R/A; km8 Nicole Coma Score: 00:23 Eye Response: spontaneous(4). Motor Response: obeys commands(6). Verbal Response: sp4 oriented(5). Total: 15. ED Course: 08/11 22:11 Patient arrived in ED. vc1 22:11 No provider procedures requiring assistance completed. Maintain EMS IV. Dressing km8 intact. Good blood return noted. Site clean \\T\\ dry. Gauge \\T\\ site: 20 gauge right forearm. 22:11 Arm band placed on right wrist. km8 22:11 Patient has correct armband on for positive identification. Placed in gown. Bed in low km8 position. Call light in reach. Side rails up X2. Client placed on continuous cardiac and pulse oximetry monitoring. NIBP monitoring applied. Warm blanket given. 22:11 Seizure precautions initiated. km8 22:16 Luis E Myles MD is Attending Physician. sp4 22:19 Merlyn Salinas, RN is Primary Nurse. km8 22:20 Monroy cath inserted, using sterile technique, 16 Fr., by dc, balloon inflated, to km8 gravity drainage, urine specimen collected. returned clear yellow urine. Patient tolerated well. 22:28 Acetaminophen Sent. km8 22:28 Basic Metabolic Panel Sent. km8 22:28 CBC with Diff Sent. km8 22:28 ETOH Level Sent. km8 22:28 Hepatic Function Sent. km8 22:28 PT-INR Sent. 8 22: Ptt, Activated Sent. km8 22:28 Salicylate Sent. km8 22:28 Urinalysis w/ reflexes Sent. km8 22:28 Urine Drug Screen Sent. km8 22:42 Triage completed. km8 23:51 CT Head Brain wo Cont In Process Unspecified. EDMS 23:51 CT Lumbar Spine Wo Con In Process Unspecified. EDMS 08/12 00:47 IV discontinued, intact, bleeding controlled, No redness/swelling at site. Pressure km8 dressing applied. 00:47 Monroy cath removed intact, balloon deflated. km8 Administered Medications: 08/11 22:17 Drug: Midazolam IVP or IV 4 mg IVP once Route: IVP; Site: right forearm; km8 22:49 Follow up: Response: No adverse reaction km8 22:30 Drug: Valproic Acid IV 750 mg IV at calculated rate once over 60 mins; (mix in 100 mL vc1 NS) Route: IV; Rate: calculated rate; Infused Over: 60 mins; Site: right wrist; 23:40 Follow up: IV Status: Completed infusion; IV Intake: 100ml km8 22:31 Drug: NS 0.9% IV 1000 ml IV at 1 bolus Per protocol; 1000 mL bolus Route: IV; Rate: 1 vc1 bolus; Site: right wrist; 23:40 Follow up: IV Status: Completed infusion; IV Intake: 1000ml km8 22:39 Drug: Ketorolac IVP 30 mg IVP once Route: IVP; Site: right forearm; km8 23:46 Follow up: Response: No adverse reaction km8 08/12 00:08 Not Given (Patient Refused): mg PO once 8 Medication: 08/11 22:11 VIS not applicable for this client. km8 Intake: 23:40 IV: 100ml; Total: 100ml. km8 23:40 IV: 1000ml; Total: 1100ml. km8 Output: 08/12 00:20 Urine: 900ml (Monroy); Total: 900ml. km8 Outcome: 00:48 AMA Other refused to sign form km8 00:48 Condition: stable 00:48 Discharge instructions given to patient, Instructed on leaving AMA Demonstrated understanding of instructions, 00:55 Patient left the ED. km8 Signatures: Dispatcher [employer] EDMS Deepali Curry RN RN vc1 Luis E Myles MD MD sp4 Merlyn Salinas RN RN km8 Corrections: (The following items were deleted from the chart) 00:54 08/11 22:20 Monroy cath inserted, using sterile technique, 16 Fr., by dc, balloon km8 inflated, to gravity drainage, urine specimen collected. km8
--- NOTE | 2023-08-12 00:37 | EDPHYS ---
Physician Documentation [facility] Name: Heather Coon Age: 53 yrs Sex: Female : 1970 Arrival Date: 08/11/2023 Time: 22:03 Bed 3 Private MD: ED Physician Luis E Myles HPI: 08/11 22:16 This 53 yrs old Female presents to ER via Unassigned with complaints of sp4 seizure . 08/12 00:23 53-year-old female presents with complaint of acute seizure. EMS reports patient had 2 sp4 convulsive episodes prior to arrival. Patient reports alcohol use at home and also reports marijuana use. Patient states she takes Depakote however she has not taken Depakote in the last several days. Patient has history of polysubstance abuse as evidenced from prior record. On arrival patient was given Versed 4 mg IV. EMS reports patient was given lorazepam 4 mg IV and also 4 mg IV Zofran. . Historical: - Allergies: 08/11 22:42 fluoxetine; km8 22:42 Green Tea; km8 22:42 Keppra; not an allergy; km8 - Home Meds: 22:42 Depakote Oral [Active]; km8 - PMHx: 22:42 Anxiety; Arthritis; Bipolar disorder; Cancer-Cervical; Chronic obstructive lung km8 disease; Chronic pain; Congestive heart failure; Depression; Diverticulitis; Herniated Back Disc; Hypertension; intestinal mass; Myocardial infarction; pt reports hx of seizures; Spastic Muscles; stroke; - PSHx: 22:42 Tonsillectomy; foot; Cholecystectomy; cervical fusion; back surgery (cervical fusion); km8 - Social history:: Smoking status: unknown Patient uses alcohol, on a daily basis. street drugs, marijuana. - Family history:: not pertinent. ROS: 08/12 00:23 Constitutional: Negative for fever, chills, and weight loss, positive for seizure prior sp4 to arrival All other systems are negative, Exam: 00:23 Constitutional: This is a well developed, well nourished patient who is awake, alert, sp4 positive for some agitation Head/Face: Normocephalic, atraumatic. Eyes: Pupils equal round and reactive to light, extra-ocular motions intact. Lids and lashes normal. Conjunctiva and sclera are not injected. Cornea within normal limits. Periorbital areas with no swelling, redness, or edema. ENT: Nares patent. No nasal discharge, no septal abnormalities noted. Tympanic membranes are normal and external auditory canals are clear. Oropharynx with no redness, swelling, or masses, exudates, or evidence of obstruction, uvula midline. Mucous membranes moist. Neck: Trachea midline, no thyromegaly or masses palpated, and no cervical lymphadenopathy. Supple, full range of motion without nuchal rigidity, or vertebral point tenderness. Chest/axilla: Normal chest wall appearance and motion. Nontender with no deformity. No lesions are appreciated. Cardiovascular: Regular rate and rhythm with a normal S1 and S2. No gallops, murmurs, or rubs. Normal PMI, no JVD. No pulse deficits. Respiratory: Lungs have equal breath sounds bilaterally, clear to auscultation and percussion. No rales, rhonchi or wheezes noted. No increased work of breathing, no retractions or nasal flaring. Abdomen/GI: Soft, non-tender, with normal bowel sounds. No distension or tympany. No guarding or rebound. No evidence of tenderness throughout. Back: No spinal tenderness. No costovertebral tenderness. Skin: Warm, dry with normal turgor. Normal color with no rashes, no lesions, and no evidence of cellulitis. MS/ Extremity: Pulses equal, no cyanosis. Neurovascular intact. Full, normal range of motion. Neuro: Awake and alert, GCS 15, oriented to person, place, time, and situation. Cranial nerves II-XII grossly intact. Motor strength 5/5 in all extremities. Sensory grossly intact. Psych: Awake, alert, with orientation to person, place and time. Behavior, mood, and affect are within normal limits Vital Signs: 08/11 22:18 BP 113 / 80; Pulse 124; Resp 20; Temp 98.3; Pulse Ox 94% ; vc1 22:30 BP 125 / 84; Pulse 126; Resp 18; Pulse Ox 96% on R/A; km8 23:00 BP 132 / 86; Pulse 115; Resp 18; Pulse Ox 97% on R/A; km8 08/12 00:20 BP 132 / 81; Pulse 110; Resp 18; Pulse Ox 98% on R/A; km8 Nicole Coma Score: 00:23 Eye Response: spontaneous(4). Motor Response: obeys commands(6). Verbal Response: sp4 oriented(5). Total: 15. MDM: 08/11 22:38 Patient medically screened. sp4 08/12 00:26 Differential Diagnosis altered mental status, sepsis, flu. Data reviewed: vital signs, sp4 nurses notes, EMS record, old medical records, lab test result(s), radiologic studies, CT scan, plain films. ED course: FINDINGS: No acute intracranial hemorrhage identified. No mass, mass effect, midline shift, or abnormal extra-axial fluid collection. No CT evidence of acute ischemic change identified, however, MRI is more sensitive in the assessment of acute ischemia. No acute abnormalities of the supratentorial white matter, basal ganglia, cerebellum, or brainstem. Ventricular system and sulcal spaces are normal in size and morphology. Basilar cisterns are patent. No skull fracture identified. Visualized orbits and globes show no acute abnormality. Mild mucosal thickening in the posterior left maxillary sinus. Remainder of the visualized paranasal sinuses and mastoid air cells are well aerated. IMPRESSION: No acute intracranial abnormality on noncontrast CT. . ED course: CT L spine - COMPARISON: CT of the abdomen and pelvis August 06, 2023 FINDINGS: VERTEBRAE: The vertebral body heights and alignment are maintained. There is no acute fracture. Facet arthropathy of the lower lumbar spine is noted. Postsurgical change consistent with laminectomy at L3-L4 is noted. DISCS/SPINAL CANAL/NEURAL FORAMINA: Intervertebral disc space narrowing with endplate irregularity at L3-L4 injury greater extent L4-L5 is noted. Vacuum disc phenomenon at L4-L5 is present. Remaining intervertebral disc spaces are maintained. SOFT TISSUES: Mild soft tissue swelling posteriorly at in the midline back at the L3-L4 level is noted, similar to prior exam. VASCULATURE: Atherosclerosis of the aorta is present. IMPRESSION: Spondylosis of the lower lumbar spine without acute findings.. 00:27 Consideration of Admission/Observation Escalation of care including sp4 admission/observation considered. ED course: Patient with history of anxiety, arthritis, bipolar disorder, COPD,. 01:18 ED course: We have very directly explained to the patient that her primary problem sp4 stems from the polysubstance abuse. Patient is positive for cocaine, cannabis and alcohol. On prior review of the record patient was positive for cocaine on 16 prior visits to the emergency room. Tachycardia and agitation likely secondary to cocaine intoxication. Patient was given total of 4 mg IV lorazepam by EMS and 4 mg IV Versed here. Based on assessment she is not having active seizures. Was given valproic acid loading dose here in ER. He was advised to discontinue drug abuse. Prior to departure patient complaint of chest pain and requested opiate pain medication. Patient's request for opiate medication was refused. Based on the left heart cath in April 2023 patient has no sign of critical coronary artery disease. It was determined that the patient has no significant coronary lesions. I have offered patient repeat troponin and EKG in the emergency room. Patient has refused further workup and decided to leave AGAINST MEDICAL ADVICE. At this time patient is stable to be released AGAINST MEDICAL ADVICE.. 08/11 22:17 Order name: Acetaminophen; Complete Time: 23:30 08/11 22:17 Order name: Basic Metabolic Panel; Complete Time: :30 08/11 22:17 Order name: CBC with Diff; Complete Time: :08/11 22:17 Order name: ETOH Level; Complete Time: :08/11 22:17 Order name: Hepatic Function; Complete Time: 23:30 08/11 22:17 Order name: PT-INR; Complete Time: :30 08/11 22:17 Order name: Ptt, Activated; Complete Time: :30 08/11 22:17 Order name: Salicylate; Complete Time: 23:30 08/11 22:17 Order name: Urinalysis w/ reflexes; Complete Time: :30 08/11 22:17 Order name: Urine Drug Screen; Complete Time: 23:08/11 22:18 Order name: CT Head Brain wo Cont 08/11 23:30 Order name: CT Lumbar Spine Wo Con 08/12 00:17 Order name: EKG; Complete Time: 00:18 08/11 22:17 Order name: Monroy; Complete Time: 22:20 08/11 22:17 Order name: IV Saline Lock; Complete Time: 22:20 08/11 22:17 Order name: Labs collected and sent; Complete Time: :20 08/11 22:17 Order name: Suicide Screening ([place]); Complete Time: 22:20 sp4 08/12 00:17 Order name: EKG - Nurse/Tech sp4 Administered Medications: 08/11 22:17 Drug: Midazolam IVP or IV 4 mg IVP once Route: IVP; Site: right forearm; km8 22:49 Follow up: Response: No adverse reaction 22:30 Drug: Valproic Acid IV 750 mg IV at calculated rate once over 60 mins; (mix in 100 mL vc1 NS) Route: IV; Rate: calculated rate; Infused Over: 60 mins; Site: right wrist; 23:40 Follow up: IV Status: Completed infusion; IV Intake: 100ml 22:31 Drug: NS 0.9% IV 1000 ml IV at 1 bolus Per protocol; 1000 mL bolus Route: IV; Rate: 1 vc1 bolus; Site: right wrist; 23:40 Follow up: IV Status: Completed infusion; IV Intake: 1000ml 22:39 Drug: Ketorolac IVP 30 mg IVP once Route: IVP; Site: right forearm; [facility] 23:46 Follow up: Response: No adverse reaction [facility] 08/12 00:08 Not Given (Patient Refused): [id number] mg PO once 8 Disposition Summary: 08/12/23 00:36 Left Against Medical Advice Notes: Location: Home sp4 Problem: new sp4 Symptoms: have improved sp4 Condition: Stable sp4 Diagnosis - Alcohol dependence with intoxication sp4 - Cocaine abuse sp4 - Tachycardia, unspecified sp4 - Irritability and anger sp4 Followup: sp4 - With: Private Physician - When: 24 Hours - Reason: Recheck today's complaints Discharge Instructions: - Discharge Summary Sheet sp4 - Substance Use Disorder and Mental Illness sp4 Signatures: Dispatcher [employer] Deepali Lopez RN RN vc1 Luis E Myles MD MD sp4 Merlyn Salinas RN RN km8
[2023-08-12 05:20] VITALS: BP 132/81; TEMP 98.3; O2SAT 98
--- NOTE | 2023-08-12 14:26 | RAD REPORT ---
EXAM DESCRIPTION: CT - Spine Lumbar Wo Con - 08/11/2023 11:50 pm CLINICAL HISTORY: The patient is 53 years old and is Female; pain , fall TECHNIQUE: Axial computed tomography images of the lumbar spine without intravenous contrast. Sagi ttal and coronal reformatted images were created and reviewed. This CT exam was performed using one or more of the following dose reduction techniques: automated exposure control, adjustment of the mA and/or kV according to patient size, and/or use of iterative reconstruction technique. COMPARISON: CT of the abdomen and pelvis August 06, 2023 FINDINGS: VERTEBRAE: The vertebral body heights and alignment are maintained. There is no acute fr acture. Facet arthropathy of the lower lumbar spine is noted. Postsurgical change consistent with l aminectomy at L3-L4 is noted. DISCS/SPINAL CANAL/NEURAL FORAMINA: Intervertebral disc space narrowing with endplate irregularit y at L3-L4 injury greater extent L4-L5 is noted. Vacuum disc phenomenon at L4-L5 is present. Remainin g intervertebral disc spaces are maintained. SOFT TISSUES: Mild soft tissue swelling posteriorly at in the midline back at the L3-L4 level is noted, similar to prior exam. VASCULATURE: Atherosclerosis of the aorta is present. IMPRESSION: Spondylosis of the lower lumbar spine without acute findings. Electronically signed by: Brooklynn Bassett MD 08/12/2023 12:06 AM CERTIFIED PROCEDURAL CODER Due to temporary technical issues with the PACS/Fluency reporting system, reports are being signed by the in house radiologist without review as a courtesy to ensure prompt reporting. The interpreting r adiologist is fully responsible for the content of the report.
--- NOTE | 2023-08-12 14:26 | RAD REPORT ---
EXAM DESCRIPTION: CT - Head Brain Wo Cont - 08/11/2023 11:49 pm CLINICAL HISTORY: SEIZURE COMPARISON: 07/27/2023 TECHNIQUE: Axial CT of the head obtained from the skull apex to the skull base without contrast. Thi s exam was performed according to our departmental dose-optimization program, which includes automate d exposure control, adjustment of the mA and/or kV according to patient size and/or use of iterative reconstruction technique. FINDINGS: No acute intracranial hemorrhage identified. No mass, mass effect, midline shift, or abnor mal extra-axial fluid collection. No CT evidence of acute ischemic change identified, however, MRI is more sensitive in the assessment of acute ischemia. No acute abnormalities of the supratentorial white matter, basal ganglia, cerebellum, or brainstem. Ventricular system and sulcal spaces are norm al in size and morphology. Basilar cisterns are patent. No skull fracture identified. Visualized orbits and globes show no acute abnormality. Mild mucosa l thickening in the posterior left maxillary sinus. Remainder of the visualized paranasal sinuses and mastoid air cells are well aerated. IMPRESSION: No acute intracranial abnormality on noncontrast CT. Electronically signed by: Lissy Dexter MD 08/12/2023 12:07 AM ROLLOFF DRIVER Due to temporary technical issues with the PACS/Fluency reporting system, reports are being signed by the in house radiologist without review as a courtesy to ensure prompt reporting. The interpreting r adiologist is fully responsible for the content of the report.
== END ==
LOC: ER 22:03
DX: F10.229 Alcohol dependence with intoxication, unspecified (principal); F14.10 Cocaine abuse, uncomplicated; R00.0 Tachycardia, unspecified; R45.4 Irritability and anger
CPT/HCPCS: 36415; 51702; 70450; 72131; 80048; 80076; 80143; 80179; 80307; 81001; 82077; 85025; 85610; 85730; 96365; 96375; 99285; J7030

== ENCOUNTER → 2023-08-13 | Emergency (ER) | payer SELFPAY ==
[~2023-08-13] MED LIST changes: +FUROSEMIDE 40 MG/4 ML VIAL ONE; -KETOROLAC 30 MG/ML INJ ONE; +LORazepam 2 MG/ML VIAL ONE; -NA CHLORIDE 0.9% 1,000 ML ONE; -NA CHLORIDE 0.9% 100 ML ONE; -ONDANSETRON 4 MG/2 ML VIAL ONE; -TRAZODONE 50 MG TABLET ONE; -VALPROATE NA 500 MG/5 ML INJ IV ONE
--- OUTSIDE RECORDS SUMMARY | 2023-08-13 18:15 | XMS REPORT | Continuity of Care Document ---
Author Name Unknown Address [address] [facility] [place] [address] [facility] thconnect Address [address] [facility] [place] [address] Care Team Providers Care Section Plotter Operator Name Role Phone Myacaro Aneta SUAREZ Primary Care Physician [phone] AYDEE GO Attending Clinician Unavailable CARA BURGESS Attending Clinician Unavailab ADAM Cabrera Attending Clinician Unavailable THOMAS LOZOYA Attending Clinician Nina MARIAH Quiroga Attending Clinician Unavailable Kael BELTRAN, Quin Sanders Attending Clinician BRIAN BRYAN Attending Clinician Unavailable Brian Bryan DO Attending Clinician [phone] Cara Burgess MD Attending Clinician [phone] Aydee Go MD Attending Clinician [phone] System, Provider Not In Attending Clinician Unav ailable Dallas Gomez Attending Clinician UnavailAdam Vasques MD Attending Clinician [phone] Mercedez ELIZONDO, Harry Attending Clinician [phone] Rocael ELIZONDO, Antwon Mccrary Attending Clinician + [phone] Ramya ELIZONDO, Yue Dumont Attending Clinician [phone] Tamica ELIZONDO, Connie Antonio Attending Clinician [phone] Jasen ELIZONDO, Mariah Attending Clinician [phone] Valerio ELIZONDO, Thomas Hopkins Attending Clinician CONNIE DAVEY Attending Clinician UnavailAlfonso Oh Attending Clinician Unavailable Alfonso Lopez Attending Clinician [phone] RITCHIE WARREN Attending Clinician Unavailable Briana ELIZONDO, Ritchie Stoner Attending Clinician [phone] Rk CAMPOS, Shy Stoner Attending Clinician [phone] Reji ELIZONDO, Halima Hummel Attending Clinician +[phone] Jen Geller MD Attending Clinician [phone] Roxi ELIZONDO, Parrish Reyez Attending Clinici an PARRISH WHEATLEY Attending Clinician UnavailLORENZA Hernández Attending Clinician Unavailable Sav Rondon MD Attending Clinician [phone] Lorenza Lowry MD Attending Clinician [phone] Maria Teresa Nicole LVN Attending Clinician + [phone] CHANTEL BOJORQUEZ Attending Clinician CHANTEL Kelly Attending Clinician Jack Ibrahim MD, Brandyn Otoole Attending Clinician [phone] SELINA MARTINES Attending Clinician Unavailable Sapna Vargas DO Attending Clinician + [phone] Tyrel ELIZONDO, Glroy Katz Attending Clinician + Selina Martines MD Attending Clinician [phone] Santos, Zelienople Collette Attending Clinician U Jose Titus MD Attending Clinician [phone] JOSE PAK Attending Clinician Unavailable NICHELLE VIRK Attending Clinician Unavaila yaya BRONSONP, Nichelle Galan Attending Clinician [phone] Doctor Unassigned, Govan Attending Clinician U chelsi Nava RN, Miky Attending Clinician Unavailab monroe BRONSONP, Fabrice Attending Clinician [phone] Deo PLATE GRINDER, Lydia Attending Clinician [phone] Unknown, Attending Attending Clinician Unavailab le UNKNOWN, ATTENDING Attending Clinician Unavailab Anali Berg Attending Clinician [phone] Yehuda Arcos MD Attending Clinician [phone] CARA BURGESS Admitting Clinician Unavailab ADAM Cabrera Admitting Clinician Unavailable MARIAH ALDRIDGE Admitting Clinician Unavailable CONNIE DAVEY Admitting Clinician UnavailAlfonso Oh Admitting Clinician Unavailable RITCHIE WARREN Admitting Clinician Unavailable JEN GELLER Admitting Clinician Unavaila LORENZA Mariscal Admitting Clinician Unavailable Lorenza Lowry MD Admitting Clinician [phone] BRANDYN IBRAHIM Admitting Clinician Unavailable Brandyn Ibrahim MD Admitting Clinician [phone] GLORY ESTEVES Admitting Clinician Unav ailable NICHELLE VIRK Admitting Clinician Unavaila yaya Payers Payer Name Policy Type Policy Number Effective Date Expirati on Date Source ISA RICARDO [id number] 2023 00:00:00 MEDICAID PENDING PENDING 2022 00:00:00 Problems Condition Name Condition Details Condition Category Status Onset Date Resolution Date Last Treatment Date Treating Clinician Comments Source Bilateral leg weakness Bilateral leg weakness Disease Active 2022-07 00:00: 00 [facility] Pneumonia Pneumonia Disease Active 2022-07 00:00: 00 [facility] Cavitary lesion of lung Cavitary lesion of lung Disease Active 2022-07 00:00: 00 [facility] Cervical disc disorder Cervical disc disorder Disease Active 2022-07 00:00: 00 [facility] Cervical myelopathy Cervical myelopathy Disease Recurre mie 2022-07 00:00: 00 [facility] Cord compressio n Cord compressio n Disease Recurre nce - 00:00: 00 [facility] Cauda equina compressio n Cauda equina compressio n Disease Recurre mie - 00:00: 00 [facility] Seizure Seizure Disease Recurre mie 14 00:00: 00 [facility] Cardiomyop athy Cardiomyop athy Disease Active 08-01 00:00: 00 [facility] NSVT (nonsustai keisha ventricula r tachycardi a) NSVT (nonsustai keisha ventricula r tachycardi a) Disease Active 08-01 00:00: 00 [facility] Chest pain, unspecifie d type Chest pain, unspecifie d type Disease Active 07-31 00:00: 00 [facility] Elevated brain natriureti c peptide (BNP) level Elevated brain natriureti c peptide (BNP) level Disease Active 07-31 00:00: 00 [facility] Coronary artery disease involving [place] coronary artery of [place] heart without angina pectoris Coronary artery disease involving [place] coronary artery of [place] heart without angina pectoris Disease Active 07-31 00:00: 00 [facility] Snores Snores Disease Active 07-31 00:00: 00 [facility] Cigarette smoker Cigarette smoker Disease Active 07-31 00:00: 00 [facility] Primary hypertensi on Primary hypertensi on Disease Active 07-31 00:00: 00 [facility] Other hyperlipid emia Other hyperlipid emia Disease Active 07-31 00:00: 00 [facility] Coronary artery disease involving [place] coronary artery of [place] heart without angina pectoris Coronary artery disease involving [place] coronary artery of [place] heart without angina pectoris Disease Active 1-12 00:00: 00 [facility] Chronic bilateral low back pain with bilateral sciatica Chronic bilateral low back pain with bilateral sciatica Disease Active 2021-07 0-17 00:00: 00 [facility] 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 Disease Active 04-15 00:00: 00 [facility] Neuroforam inal stenosis of cervical spine Neuroforam inal stenosis of cervical spine Disease Active 04-15 00:00: 00 [facility] Stroke-lik e symptoms Stroke-lik e symptoms Disease Active 04-13 00:00: 00 [facility] Bipolar disorder, in partial remission, most recent episode manic Bipolar disorder, in partial remission, most recent episode manic Disease Active 09-27 00:00: 00 [facility] Neuroforam inal stenosis of lumbar spine Neuroforam inal stenosis of lumbar spine Disease Active 09-27 00:00: 00 [facility] Bilateral acute otitis media, recurrence not specified, unspecifie d otitis media type Bilateral acute otitis media, recurrence not specified, unspecifie d otitis media type Disease Active 09-27 00:00: 00 [facility] Lumbar spinal stenosis Lumbar spinal stenosis Disease Active 09-27 00:00: 00 [facility] Right-side d low back pain with sciatica, sciatica laterality unspecifie d Right-side d low back pain with sciatica, sciatica laterality unspecifie d Disease Active 09-27 00:00: 00 [facility] Generalize d anxiety disorder Generalize d anxiety disorder Disease Active 09-27 00:00: 00 [facility] Agoraphobi a Agoraphobi a Disease Active 09-27 00:00: 00 [facility] Bipolar disorder, in partial remission, most recent episode manic Bipolar disorder, in partial remission, most recent episode manic Disease Active 09-27 00:00: 00 [facility] Obsessive compulsive disorder Obsessive compulsive disorder Disease Active 09-27 00:00: 00 [facility] Breast mass, left Breast mass, left Disease Active 09-17 00:00: 00 [facility] Anxiety Anxiety Disease Active 09-17 00:00: 00 [facility] Lower back pain Lower back pain Disease Active 09-17 00:00: 00 [facility] High blood pressure High blood pressure Disease Active 09-17 00:00: 00 [facility] COPD (chronic obstructiv e pulmonary disease) COPD (chronic obstructiv e pulmonary disease) Disease Active 09-17 00:00: 00 [facility] Obesity Obesity Disease Active 09-17 00:00: 00 [facility] Allergies, Adverse Reactions, Alerts Allergy Name Allergy Type Status Severity Reaction(s) Onset Date Inactive Date Treating Clinician Comments Source FLUOXETI NE Allergy Active 03-29 00:00: 00 [facility] GREEN TEA Allergy Active High Other 03-29 00:00: 00 [facility] LEVETIRA CETAM Allergy Active High N\\T\\V 03-29 00:00: 00 [facility] Green Tea Propensi ty to adverse reaction s Active 03-29 00:00: 00 Seizure like activity [facility] Levetira cetam Propensi ty to adverse reaction s Active Nausea And Vomiting - 00:00: 00 Intensifi es seizure [facility] Fluoxeti ne Propensi ty to adverse reaction s Active 03-29 00:00: 00 [facility] Green Tea Drug Allergy Active Other (See Comments) - 00:00: 00 Seizure like activity [facility] Levetira cetam Drug Allergy Active Nausea And Vomiting 03-29 00:00: 00 Intensifi es seizure [facility] LEVETIRA CETAM DRUG INGREDI Active Other-Cmnt - 00:00: 00 [facility] Levetira cetam Propensi ty to adverse reaction s Active Other - See comments 11-17 00:00: 00 Makes seizures worse [facility] Green Tea Propensi ty to adverse reaction s Active 08-02 00:00: 00 [facility] GREEN TEA Allergy Active 08-02 00:00: 00 [facility] FLUOXETI NE Allergy Active Med Rash 08-02 00:00: 00 [facility] Fluoxeti ne Propensi ty to adverse reaction s Active Rash 08-02 00:00: 00 [facility] Fluoxeti ne Propensi ty to adverse reaction s Active Unknown - See comments 03-25 00:00: 00 [facility] FLUOXETI NE DRUG INGREDI Active Unknown-Cmnt 03-25 00:00: 00 [facility] DICLOFEN AC DRUG INGREDI Active HYPERTENSION 11-20 00:00: 00 [facility] Diclofen ac Propensi ty to adverse reaction s Active Hypertension 11-20 00:00: 00 [facility] GREEN TEA DRUG INGREDI Active Med Other-Cmnt 08-10 00:00: 00 [facility] Green Tea Propensi ty to adverse reaction s to drug Active Other - See comments 08-10 00:00: 00 Seizures [facility] FLUOXETI NE HCL DRUG INGREDI Active Hives 03-19 00:00: 00 [facility] Fluoxeti ne Hcl Propensi ty to adverse reaction s Active Hives 03-19 00:00: 00 [facility] Family History Family Member Diagnosis Comments Start Date Stop Date Sourc e Natural mother Alcohol abuse C [facility] Natural mother Stroke [facility] Natural mother Alcohol abuse C [facility] Natural mother Cancer [facility] Natural mother Diabetes [facility] Natural mother Heart disease C [facility] Natural mother Hyperlipidemia [facility] Natural mother Kidney disease [facility] Natural mother Stroke [facility] Paternal uncle Diabetes [facility] Social History Social Habit Start Date Stop Date Quantity Comments Source History SDOH Social Connections Get Together [facility] History SDOH Social Connections Yarsanism [facility] History SDOH Social Connections Membership [facility] History SDOH Social Connections Meetings [facility] History SDOH Alcohol Frequency [facility] History SDOH Alcohol Std Drinks [facility] History SDOH Alcohol Binge [facility] History SDOH Housing Homeless Last Year [facility] Sexual orientation C [facility] History of Social function 2023-08-03 00:00:00 2023-08-03 00:00:00 [facility] Alcohol intake 2023-06-02 00:00:00 2023-06-02 00:00:00 Current drinker of alcohol (finding) [facility] Exposure to SARS-CoV-2 (event) 2023-05-18 00:00:00 2023-05-28 07:28:00 Not sure [facility] History SDOH Housing Unable to Pay - In the last 12 months, was there a time when you were not able to pay the mortgage or rent on time? 2023-05-26 00:00:00 2023-05-26 00:00:00 Yes [facility] Cigarettes smoked current (pack per day) - Reported 2023-05-26 00:00:00 2023-05-26 00:00:00 [facility] Cigarette pack-years 2023-05-26 00:00:00 2023-05-26 00:00:00 [facility] Tobacco use and exposure 2023-05-26 00:00:00 2023-05-26 00:00:00 Smokeless tobacco non-user [facility] History of tobacco use 1987-05-22 00:00:00 2023-05-22 00:00:00 Cigarette Smoker [facility] History SDOH Housing Places Lived 2023-03-30 00:00:00 2023-03-30 00:00:00 1 [facility] Alcohol Comment 2023-03-29 00:00:00 2023-03-29 00:00:00 2x a week [facility] History SDOH Social Connections Phone 2022-08-01 00:00:00 2022-08-01 00:00:00 5 [facility] History SDOH Social Connections Living 2022-08-01 00:00:00 2022-08-01 00:00:00 5 [facility] History SDOH Physical Activity DPW 2022-08-01 00:00:00 2022-08-01 00:00:00 0 [facility] History SDOH Physical Activity MPS 2022-08-01 00:00:00 2022-08-01 00:00:00 0 [facility] History SDOH Financial 2022-08-01 00:00:00 2022-08-01 00:00:00 3 [facility] History SDOH Food Worry 2022-08-01 00:00:00 2022-08-01 00:00:00 1 [facility] History SDOH Food Scarcity 2022-08-01 00:00:00 2022-08-01 00:00:00 1 [facility] History SDOH Transport Med 2022-08-01 00:00:00 2022-08-01 00:00:00 2 [facility] History SDOH Transport Non-Med 2022-08-01 00:00:00 2022-08-01 00:00:00 2 [facility] Education - What is the highest level of school you have completed or the highest degree you have received? 2022-07-31 00:00:00 2022-07-31 00:00:00 GED or equivalent [facility] Sex Assigned At 1970 00:00:00 1970 00:00:00 [facility] Smoking Status Start Date Stop Date Source Ex-smoker 2023-05-26 00:00:00 2023-05-26 00:00:00 C [facility] Smokes tobacco daily 2023-03-29 00:00:00 [facility] Medications Ordered Medication Name Filled Medication Name Start Date Stop Date Current Medication? Ordering Clinician Indication Dosage Frequency Signature (SIG) Comments Components Source lacosamide (VIMPAT) 100 mg in NaCl 0.9% (NS) 50 mL piggyback 08-12 21:15: 00 08-12 21:23 :00 No 100mg 100 mg, IV Piggyback, ONCE, 1 dose, On Thu08/12/23 at 1515, Administer over 30 Minutes, 50 mL
Facu lty member approving Restricted medication : BRIAN BRYAN [facility] tamsulosin (FLOMAX) 0.4 mg Cap 24 hr capsule 2022-07 00:00: 00 06-22 23:59 :00 No .4mg QD Take 1 capsule (0.4 mg total) by mouth daily for 5 days. [facility] tamsulosin (FLOMAX) 0.4 mg Cap 24 hr capsule 2022-07 00:00: 00 06-22 23:59 :00 No .4mg QD Take 1 capsule (0.4 mg total) by mouth daily for 5 days. [facility] tamsulosin (FLOMAX) 0.4 mg Cap 24 hr capsule 2022-07 00:00: 00 06-22 23:59 :00 No .4mg QD Take 1 capsule (0.4 mg total) by mouth daily for 5 days. [facility] tamsulosin (FLOMAX) 0.4 mg Cap 24 hr capsule 2022-07 00:00: 00 06-22 23:59 :00 No .4mg QD Take 1 capsule (0.4 mg total) by mouth daily for 5 days. [facility] tamsulosin (FLOMAX) 0.4 mg Cap 24 hr capsule 2022-07 00:00: 00 06-22 23:59 :00 No .4mg QD Take 1 capsule (0.4 mg total) by mouth daily for 5 days. [facility] tamsulosin (FLOMAX) 0.4 mg Cap 24 hr capsule 2022-07 00:00: 00 06-22 23:59 :00 No .4mg QD Take 1 capsule (0.4 mg total) by mouth daily for 5 days. [facility] tamsulosin (FLOMAX) 0.4 mg Cap 24 hr capsule 2022-07 00:00: 00 06-22 23:59 :00 No .4mg QD Take 1 capsule (0.4 mg total) by mouth daily for 5 days. [facility] tamsulosin (FLOMAX) 0.4 mg Cap 24 hr capsule 2022-07 00:00: 00 06-22 23:59 :00 No .4mg QD Take 1 capsule (0.4 mg total) by mouth daily for 5 days. [facility] tamsulosin (FLOMAX) 0.4 mg Cap 24 hr capsule 2022-07 00:00: 00 06-22 23:59 :00 No .4mg QD Take 1 capsule (0.4 mg total) by mouth daily for 5 days. [facility] tamsulosin (FLOMAX) 0.4 mg Cap 24 hr capsule 2022-07 00:00: 00 06-22 23:59 :00 No .4mg QD Take 1 capsule (0.4 mg total) by mouth daily for 5 days. [facility] tamsulosin (FLOMAX) 0.4 mg Cap 24 hr capsule 2022-07 00:00: 00 06-22 23:59 :00 No .4mg QD Take 1 capsule (0.4 mg total) by mouth daily for 5 days. [facility] tamsulosin (FLOMAX) 0.4 mg Cap 24 hr capsule 2022-07 00:00: 00 06-22 23:59 :00 Yes .4mg QD Take 1 capsule (0.4 mg total) by mouth daily for 5 days. [facility] tamsulosin (FLOMAX) 0.4 mg Cap 24 hr capsule 2022-07 00:00: 00 06-22 23:59 :00 Yes .4mg QD Take 1 capsule (0.4 mg total) by mouth daily for 5 days. [facility] tamsulosin (FLOMAX) 0.4 mg Cap 24 hr capsule 2022-07 00:00: 00 06-22 23:59 :00 No .4mg QD Take 1 capsule (0.4 mg total) by mouth daily for 5 days. [facility] metoprolol succinate (TOPROL-XL) 25 MG 24 hr tablet 2022-07 19:45: 32 Yes 25mg QD Take 1 tablet (25 mg total) by mouth daily. [facility] varenicline (CHANTIX) 1 mg tablet 2022-07 19:45: 32 Yes 1mg Q.5D Take 1 tablet (1 mg total) by mouth 2 (two) times daily Give with meals and with a full glass of water.. [facility] albuterol HFA (VENTOLIN HFA) 90 mcg/actuati on inhaler 2022-07 19:45: 32 Yes 1{puff} Inhale 1 puff by mouth via inhaler every 6 (six) hours as needed for Wheezing. [facility] fluticasone -umeclidin- vilanter (Trelegy Ellipta) 200-62.5-25 mcg DsDv 2022-07 19:45: 32 Yes QD Inhale by mouth via inhaler daily. [facility] atorvastati n (LIPITOR) 20 MG tablet 2022-07 19:45: 32 Yes 20mg QD Take 1 tablet (20 mg total) by mouth daily. [facility] metoprolol succinate (TOPROL-XL) 25 MG 24 hr tablet 2022-07 19:45: 32 Yes 25mg QD Take 1 tablet (25 mg total) by mouth daily. [facility] varenicline (CHANTIX) 1 mg tablet 2022-07 19:45: 32 Yes 1mg Q.5D Take 1 tablet (1 mg total) by mouth 2 (two) times daily Give with meals and with a full glass of water.. [facility] albuterol HFA (VENTOLIN HFA) 90 mcg/actuati on inhaler 2022-07 19:45: 32 Yes 1{puff} Inhale 1 puff by mouth via inhaler every 6 (six) hours as needed for Wheezing. [facility] fluticasone -umeclidin- vilanter (Trelegy Ellipta) 200-62.5-25 mcg DsDv 2022-07 19:45: 32 Yes QD Inhale by mouth via inhaler daily. [facility] atorvastati n (LIPITOR) 20 MG tablet 2022-07 19:45: 32 Yes 20mg QD Take 1 tablet (20 mg total) by mouth daily. [facility] metoprolol succinate (TOPROL-XL) 25 MG 24 hr tablet 2022-07 19:45: 32 Yes 25mg QD Take 1 tablet (25 mg total) by mouth daily. [facility] varenicline (CHANTIX) 1 mg tablet 2022-07 19:45: 32 Yes 1mg Q.5D Take 1 tablet (1 mg total) by mouth 2 (two) times daily Give with meals and with a full glass of water.. [facility] albuterol HFA (VENTOLIN HFA) 90 mcg/actuati on inhaler 2022-07 19:45: 32 Yes 1{puff} Inhale 1 puff by mouth via inhaler every 6 (six) hours as needed for Wheezing. [facility] fluticasone -umeclidin- vilanter (Trelegy Ellipta) 200-62.5-25 mcg DsDv 2022-07 19:45: 32 Yes QD Inhale by mouth via inhaler daily. [facility] atorvastati n (LIPITOR) 20 MG tablet 2022-07 19:45: 32 Yes 20mg QD Take 1 tablet (20 mg total) by mouth daily. [facility] metoprolol succinate (TOPROL-XL) 25 MG 24 hr tablet 2022-07 19:45: 32 Yes 25mg QD Take 1 tablet (25 mg total) by mouth daily. [facility] varenicline (CHANTIX) 1 mg tablet 2022-07 19:45: 32 Yes 1mg Q.5D Take 1 tablet (1 mg total) by mouth 2 (two) times daily Give with meals and with a full glass of water.. [facility] albuterol HFA (VENTOLIN HFA) 90 mcg/actuati on inhaler 2022-07 19:45: 32 Yes 1{puff} Inhale 1 puff by mouth via inhaler every 6 (six) hours as needed for Wheezing. [facility] fluticasone -umeclidin- vilanter (Trelegy Ellipta) 200-62.5-25 mcg DsDv 2022-07 19:45: 32 Yes QD Inhale by mouth via inhaler daily. [facility] atorvastati n (LIPITOR) 20 MG tablet 2022-07 19:45: 32 Yes 20mg QD Take 1 tablet (20 mg total) by mouth daily. [facility] metoprolol succinate (TOPROL-XL) 25 MG 24 hr tablet 2022-07 19:45: 32 Yes 25mg QD Take 1 tablet (25 mg total) by mouth daily. [facility] varenicline (CHANTIX) 1 mg tablet 2022-07 19:45: 32 Yes 1mg Q.5D Take 1 tablet (1 mg total) by mouth 2 (two) times daily Give with meals and with a full glass of water.. [facility] albuterol HFA (VENTOLIN HFA) 90 mcg/actuati on inhaler 2022-07 19:45: 32 Yes 1{puff} Inhale 1 puff by mouth via inhaler every 6 (six) hours as needed for Wheezing. [facility] fluticasone -umeclidin- vilanter (Trelegy Ellipta) 200-62.5-25 mcg DsDv 2022-07 19:45: 32 Yes QD Inhale by mouth via inhaler daily. [facility] atorvastati n (LIPITOR) 20 MG tablet 2022-07 19:45: 32 Yes 20mg QD Take 1 tablet (20 mg total) by mouth daily. [facility] metoprolol succinate (TOPROL-XL) 25 MG 24 hr tablet 2022-07 19:45: 32 Yes 25mg QD Take 1 tablet (25 mg total) by mouth daily. [facility] varenicline (CHANTIX) 1 mg tablet 2022-07 19:45: 32 Yes 1mg Q.5D Take 1 tablet (1 mg total) by mouth 2 (two) times daily Give with meals and with a full glass of water.. [facility] albuterol HFA (VENTOLIN HFA) 90 mcg/actuati on inhaler 2022-07 19:45: 32 Yes 1{puff} Inhale 1 puff by mouth via inhaler every 6 (six) hours as needed for Wheezing. [facility] fluticasone -umeclidin- vilanter (Trelegy Ellipta) 200-62.5-25 mcg DsDv 2022-07 19:45: 32 Yes QD Inhale by mouth via inhaler daily. [facility] atorvastati n (LIPITOR) 20 MG tablet 2022-07 19:45: 32 Yes 20mg QD Take 1 tablet (20 mg total) by mouth daily. [facility] metoprolol succinate (TOPROL-XL) 25 MG 24 hr tablet 2022-07 19:45: 32 Yes 25mg QD Take 1 tablet (25 mg total) by mouth daily. [facility] varenicline (CHANTIX) 1 mg tablet 2022-07 19:45: 32 Yes 1mg Q.5D Take 1 tablet (1 mg total) by mouth 2 (two) times daily Give with meals and with a full glass of water.. [facility] albuterol HFA (VENTOLIN HFA) 90 mcg/actuati on inhaler 2022-07 19:45: 32 Yes 1{puff} Inhale 1 puff by mouth via inhaler every 6 (six) hours as needed for Wheezing. [facility] fluticasone -umeclidin- vilanter (Trelegy Ellipta) 200-62.5-25 mcg DsDv 2022-07 19:45: 32 Yes QD Inhale by mouth via inhaler daily. [facility] atorvastati n (LIPITOR) 20 MG tablet 2022-07 19:45: 32 Yes 20mg QD Take 1 tablet (20 mg total) by mouth daily. [facility] metoprolol succinate (TOPROL-XL) 25 MG 24 hr tablet 2022-07 19:45: 32 Yes 25mg QD Take 1 tablet (25 mg total) by mouth daily. [facility] varenicline (CHANTIX) 1 mg tablet 2022-07 19:45: 32 Yes 1mg Q.5D Take 1 tablet (1 mg total) by mouth 2 (two) times daily Give with meals and with a full glass of water.. [facility] albuterol HFA (VENTOLIN HFA) 90 mcg/actuati on inhaler 2022-07 19:45: 32 Yes 1{puff} Inhale 1 puff by mouth via inhaler every 6 (six) hours as needed for Wheezing. [facility] fluticasone -umeclidin- vilanter (Trelegy Ellipta) 200-62.5-25 mcg DsDv 2022-07 19:45: 32 Yes QD Inhale by mouth via inhaler daily. [facility] atorvastati n (LIPITOR) 20 MG tablet 2022-07 19:45: 32 Yes 20mg QD Take 1 tablet (20 mg total) by mouth daily. [facility] metoprolol succinate (TOPROL-XL) 25 MG 24 hr tablet 2022-07 19:45: 32 Yes 25mg QD Take 1 tablet (25 mg total) by mouth daily. [facility] varenicline (CHANTIX) 1 mg tablet 2022-07 19:45: 32 Yes 1mg Q.5D Take 1 tablet (1 mg total) by mouth 2 (two) times daily Give with meals and with a full glass of water.. [facility] albuterol HFA (VENTOLIN HFA) 90 mcg/actuati on inhaler 2022-07 19:45: 32 Yes 1{puff} Inhale 1 puff by mouth via inhaler every 6 (six) hours as needed for Wheezing. [facility] fluticasone -umeclidin- vilanter (Trelegy Ellipta) 200-62.5-25 mcg DsDv 2022-07 19:45: 32 Yes QD Inhale by mouth via inhaler daily. [facility] atorvastati n (LIPITOR) 20 MG tablet 2022-07 19:45: 32 Yes 20mg QD Take 1 tablet (20 mg total) by mouth daily. [facility] metoprolol succinate (TOPROL-XL) 25 MG 24 hr tablet 2022-07 19:45: 32 Yes 25mg QD Take 1 tablet (25 mg total) by mouth daily. [facility] varenicline (CHANTIX) 1 mg tablet 2022-07 19:45: 32 Yes 1mg Q.5D Take 1 tablet (1 mg total) by mouth 2 (two) times daily Give with meals and with a full glass of water.. [facility] albuterol HFA (VENTOLIN HFA) 90 mcg/actuati on inhaler 2022-07 19:45: 32 Yes 1{puff} Inhale 1 puff by mouth via inhaler every 6 (six) hours as needed for Wheezing. [facility] fluticasone -umeclidin- vilanter (Trelegy Ellipta) 200-62.5-25 mcg DsDv 2022-07 19:45: 32 Yes QD Inhale by mouth via inhaler daily. [facility] atorvastati n (LIPITOR) 20 MG tablet 2022-07 19:45: 32 Yes 20mg QD Take 1 tablet (20 mg total) by mouth daily. [facility] metoprolol succinate (TOPROL-XL) 25 MG 24 hr tablet 2022-07 19:45: 32 Yes 25mg QD Take 1 tablet (25 mg total) by mouth daily. [facility] varenicline (CHANTIX) 1 mg tablet 2022-07 19:45: 32 Yes 1mg Q.5D Take 1 tablet (1 mg total) by mouth 2 (two) times daily Give with meals and with a full glass of water.. [facility] albuterol HFA (VENTOLIN HFA) 90 mcg/actuati on inhaler 2022-07 19:45: 32 Yes 1{puff} Inhale 1 puff by mouth via inhaler every 6 (six) hours as needed for Wheezing. [facility] fluticasone -umeclidin- vilanter (Trelegy Ellipta) 200-62.5-25 mcg DsDv 2022-07 19:45: 32 Yes QD Inhale by mouth via inhaler daily. [facility] atorvastati n (LIPITOR) 20 MG tablet 2022-07 19:45: 32 Yes 20mg QD Take 1 tablet (20 mg total) by mouth daily. [facility] metoprolol succinate (TOPROL-XL) 25 MG 24 hr tablet 2022-07 19:45: 32 Yes 25mg QD Take 1 tablet (25 mg total) by mouth daily. [facility] varenicline (CHANTIX) 1 mg tablet 2022-07 19:45: 32 Yes 1mg Q.5D Take 1 tablet (1 mg total) by mouth 2 (two) times daily Give with meals and with a full glass of water.. [facility] albuterol HFA (VENTOLIN HFA) 90 mcg/actuati on inhaler 2022-07 19:45: 32 Yes 1{puff} Inhale 1 puff by mouth via inhaler every 6 (six) hours as needed for Wheezing. [facility] fluticasone -umeclidin- vilanter (Trelegy Ellipta) 200-62.5-25 mcg DsDv 2022-07 19:45: 32 Yes QD Inhale by mouth via inhaler daily. [facility] atorvastati n (LIPITOR) 20 MG tablet 2022-07 19:45: 32 Yes 20mg QD Take 1 tablet (20 mg total) by mouth daily. [facility] metoprolol succinate (TOPROL-XL) 25 MG 24 hr tablet 2022-07 19:45: 32 Yes 25mg QD Take 1 tablet (25 mg total) by mouth daily. [facility] varenicline (CHANTIX) 1 mg tablet 2022-07 19:45: 32 Yes 1mg Q.5D Take 1 tablet (1 mg total) by mouth 2 (two) times daily Give with meals and with a full glass of water.. [facility] albuterol HFA (VENTOLIN HFA) 90 mcg/actuati on inhaler 2022-07 19:45: 32 Yes 1{puff} Inhale 1 puff by mouth via inhaler every 6 (six) hours as needed for Wheezing. [facility] fluticasone -umeclidin- vilanter (Trelegy Ellipta) 200-62.5-25 mcg DsDv 2022-07 19:45: 32 Yes QD Inhale by mouth via inhaler daily. [facility] atorvastati n (LIPITOR) 20 MG tablet 2022-07 19:45: 32 Yes 20mg QD Take 1 tablet (20 mg total) by mouth daily. [facility] metoprolol succinate (TOPROL-XL) 25 MG 24 hr tablet 2022-07 19:45: 32 Yes 25mg QD Take 1 tablet (25 mg total) by mouth daily. [facility] varenicline (CHANTIX) 1 mg tablet 2022-07 19:45: 32 Yes 1mg Q.5D Take 1 tablet (1 mg total) by mouth 2 (two) times daily Give with meals and with a full glass of water.. [facility] albuterol HFA (VENTOLIN HFA) 90 mcg/actuati on inhaler 2022-07 19:45: 32 Yes 1{puff} Inhale 1 puff by mouth via inhaler every 6 (six) hours as needed for Wheezing. [facility] fluticasone -umeclidin- vilanter (Trelegy Ellipta) 200-62.5-25 mcg DsDv 2022-07 19:45: 32 Yes QD Inhale by mouth via inhaler daily. [facility] atorvastati n (LIPITOR) 20 MG tablet 2022-07 19:45: 32 Yes 20mg QD Take 1 tablet (20 mg total) by mouth daily. [facility] acetaminoph en-codeine (TYLENOL #3) 300-30 mg per tablet 2022-07 18:02: 00 06-16 00:00 :00 No 1{tbl} Take 1 tablet by mouth every 4 (four) hours as needed for Pain. [facility] acetaminoph en-codeine (TYLENOL #3) 300-30 mg per tablet 2022-07 18:02: 00 06-16 00:00 :00 No 1{tbl} Take 1 tablet by mouth every 4 (four) hours as needed for Pain. [facility] acetaminoph en-codeine (TYLENOL #3) 300-30 mg per tablet 2022-07 18:02: 00 06-16 00:00 :00 No 1{tbl} Take 1 tablet by mouth every 4 (four) hours as needed for Pain. [facility] acetaminoph en-codeine (TYLENOL #3) 300-30 mg per tablet 2022-07 18:02: 00 06-16 00:00 :00 No 1{tbl} Take 1 tablet by mouth every 4 (four) hours as needed for Pain. [facility] acetaminoph en-codeine (TYLENOL #3) 300-30 mg per tablet 2022-07 18:02: 00 06-16 00:00 :00 No 1{tbl} Take 1 tablet by mouth every 4 (four) hours as needed for Pain. [facility] acetaminoph en-codeine (TYLENOL #3) 300-30 mg per tablet 2022-07 18:02: 00 06-16 00:00 :00 No 1{tbl} Take 1 tablet by mouth every 4 (four) hours as needed for Pain. [facility] acetaminoph en-codeine (TYLENOL #3) 300-30 mg per tablet 2022-07 18:02: 00 06-16 00:00 :00 No 1{tbl} Take 1 tablet by mouth every 4 (four) hours as needed for Pain. [facility] acetaminoph en-codeine (TYLENOL #3) 300-30 mg per tablet 2022-07 18:02: 00 06-16 00:00 :00 No 1{tbl} Take 1 tablet by mouth every 4 (four) hours as needed for Pain. [facility] acetaminoph en-codeine (TYLENOL #3) 300-30 mg per tablet 2022-07 18:02: 00 06-16 00:00 :00 No 1{tbl} Take 1 tablet by mouth every 4 (four) hours as needed for Pain. [facility] acetaminoph en-codeine (TYLENOL #3) 300-30 mg per tablet 2022-07 18:02: 00 06-16 00:00 :00 No 1{tbl} Take 1 tablet by mouth every 4 (four) hours as needed for Pain. [facility] acetaminoph en-codeine (TYLENOL #3) 300-30 mg per tablet 2022-07 18:02: 00 06-16 00:00 :00 No 1{tbl} Take 1 tablet by mouth every 4 (four) hours as needed for Pain. [facility] acetaminoph en-codeine (TYLENOL #3) 300-30 mg per tablet 2022-07 18:02: 00 06-16 00:00 :00 No 1{tbl} Take 1 tablet by mouth every 4 (four) hours as needed for Pain. [facility] acetaminoph en-codeine (TYLENOL #3) 300-30 mg per tablet 2022-07 18:02: 00 06-16 00:00 :00 No 1{tbl} Take 1 tablet by mouth every 4 (four) hours as needed for Pain. [facility] acetaminoph en-codeine (TYLENOL #3) 300-30 mg per tablet 2022-07 18:02: 00 06-16 00:00 :00 No 1{tbl} Take 1 tablet by mouth every 4 (four) hours as needed for Pain. [facility] DULoxetine (CYMBALTA) 30 MG capsule 2022-07 00:00: 00 09-14 23:59 :00 Yes 30mg QD Take 1 capsule (30 mg total) by mouth daily for 90 days. [facility] DULoxetine (CYMBALTA) 30 MG capsule 2022-07 00:00: 00 09-14 23:59 :00 Yes 30mg QD Take 1 capsule (30 mg total) by mouth daily for 90 days. [facility] DULoxetine (CYMBALTA) 30 MG capsule 2022-07 00:00: 00 09-14 23:59 :00 Yes 30mg QD Take 1 capsule (30 mg total) by mouth daily for 90 days. [facility] DULoxetine (CYMBALTA) 30 MG capsule 2022-07 00:00: 00 09-14 23:59 :00 Yes 30mg QD Take 1 capsule (30 mg total) by mouth daily for 90 days. [facility] DULoxetine (CYMBALTA) 30 MG capsule 2022-07 00:00: 00 09-14 23:59 :00 Yes 30mg QD Take 1 capsule (30 mg total) by mouth daily for 90 days. [facility] DULoxetine (CYMBALTA) 30 MG capsule 2022-07 00:00: 00 09-14 23:59 :00 Yes 30mg QD Take 1 capsule (30 mg total) by mouth daily for 90 days. [facility] DULoxetine (CYMBALTA) 30 MG capsule 2022-07 00:00: 00 09-14 23:59 :00 Yes 30mg QD Take 1 capsule (30 mg total) by mouth daily for 90 days. [facility] DULoxetine (CYMBALTA) 30 MG capsule 2022-07 00:00: 00 09-14 23:59 :00 Yes 30mg QD Take 1 capsule (30 mg total) by mouth daily for 90 days. [facility] DULoxetine (CYMBALTA) 30 MG capsule 2022-07 00:00: 00 09-14 23:59 :00 Yes 30mg QD Take 1 capsule (30 mg total) by mouth daily for 90 days. [facility] DULoxetine (CYMBALTA) 30 MG capsule 2022-07 00:00: 00 09-14 23:59 :00 Yes 30mg QD Take 1 capsule (30 mg total) by mouth daily for 90 days. [facility] DULoxetine (CYMBALTA) 30 MG capsule 2022-07 00:00: 00 09-14 23:59 :00 Yes 30mg QD Take 1 capsule (30 mg total) by mouth daily for 90 days. [facility] DULoxetine (CYMBALTA) 30 MG capsule 2022-07 00:00: 00 09-14 23:59 :00 Yes 30mg QD Take 1 capsule (30 mg total) by mouth daily for 90 days. [facility] DULoxetine (CYMBALTA) 30 MG capsule 2022-07 00:00: 00 09-14 23:59 :00 Yes 30mg QD Take 1 capsule (30 mg total) by mouth daily for 90 days. [facility] DULoxetine (CYMBALTA) 30 MG capsule 2022-07 00:00: 00 09-14 23:59 :00 Yes 30mg QD Take 1 capsule (30 mg total) by mouth daily for 90 days. [facility] metroNIDAZO LE (FLAGYL) 500 MG tablet 2022-07 00:00: 00 07-04 23:59 :00 No 500mg Take 1 tablet (500 mg total) by mouth every 8 (eight) hours for 18 days. [facility] ciprofloxac in HCl (CIPRO) 500 MG tablet 2022-07 00:00: 00 07-04 23:59 :00 No 500mg Q.5D Take 1 tablet (500 mg total) by mouth 2 (two) times daily for 18 days. [facility] metroNIDAZO LE (FLAGYL) 500 MG tablet 2022-07 00:00: 00 07-04 23:59 :00 No 500mg Take 1 tablet (500 mg total) by mouth every 8 (eight) hours for 18 days. [facility] ciprofloxac in HCl (CIPRO) 500 MG tablet 2022-07 00:00: 00 07-04 23:59 :00 No 500mg Q.5D Take 1 tablet (500 mg total) by mouth 2 (two) times daily for 18 days. [facility] metroNIDAZO LE (FLAGYL) 500 MG tablet 2022-07 00:00: 00 07-04 23:59 :00 No 500mg Take 1 tablet (500 mg total) by mouth every 8 (eight) hours for 18 days. [facility] ciprofloxac in HCl (CIPRO) 500 MG tablet 2022-07 00:00: 00 07-04 23:59 :00 No 500mg Q.5D Take 1 tablet (500 mg total) by mouth 2 (two) times daily for 18 days. [facility] metroNIDAZO LE (FLAGYL) 500 MG tablet 2022-07 00:00: 00 07-04 23:59 :00 No 500mg Take 1 tablet (500 mg total) by mouth every 8 (eight) hours for 18 days. [facility] ciprofloxac in HCl (CIPRO) 500 MG tablet 2022-07 00:00: 00 07-04 23:59 :00 No 500mg Q.5D Take 1 tablet (500 mg total) by mouth 2 (two) times daily for 18 days. [facility] metroNIDAZO LE (FLAGYL) 500 MG tablet 2022-07 00:00: 00 07-04 23:59 :00 No 500mg Take 1 tablet (500 mg total) by mouth every 8 (eight) hours for 18 days. [facility] ciprofloxac in HCl (CIPRO) 500 MG tablet 2022-07 00:00: 00 07-04 23:59 :00 No 500mg Q.5D Take 1 tablet (500 mg total) by mouth 2 (two) times daily for 18 days. [facility] metroNIDAZO LE (FLAGYL) 500 MG tablet 2022-07 00:00: 00 07-04 23:59 :00 No 500mg Take 1 tablet (500 mg total) by mouth every 8 (eight) hours for 18 days. [facility] ciprofloxac in HCl (CIPRO) 500 MG tablet 2022-07 00:00: 00 07-04 23:59 :00 No 500mg Q.5D Take 1 tablet (500 mg total) by mouth 2 (two) times daily for 18 days. [facility] metroNIDAZO LE (FLAGYL) 500 MG tablet 2022-07 00:00: 00 07-04 23:59 :00 No 500mg Take 1 tablet (500 mg total) by mouth every 8 (eight) hours for 18 days. [facility] ciprofloxac in HCl (CIPRO) 500 MG tablet 2022-07 00:00: 00 07-04 23:59 :00 No 500mg Q.5D Take 1 tablet (500 mg total) by mouth 2 (two) times daily for 18 days. [facility] metroNIDAZO LE (FLAGYL) 500 MG tablet 2022-07 00:00: 00 07-04 23:59 :00 No 500mg Take 1 tablet (500 mg total) by mouth every 8 (eight) hours for 18 days. [facility] ciprofloxac in HCl (CIPRO) 500 MG tablet 2022-07 00:00: 00 07-04 23:59 :00 No 500mg Q.5D Take 1 tablet (500 mg total) by mouth 2 (two) times daily for 18 days. [facility] metroNIDAZO LE (FLAGYL) 500 MG tablet 2022-07 00:00: 00 07-04 23:59 :00 No 500mg Take 1 tablet (500 mg total) by mouth every 8 (eight) hours for 18 days. [facility] ciprofloxac in HCl (CIPRO) 500 MG tablet 2022-07 00:00: 00 07-04 23:59 :00 No 500mg Q.5D Take 1 tablet (500 mg total) by mouth 2 (two) times daily for 18 days. [facility] metroNIDAZO LE (FLAGYL) 500 MG tablet 2022-07 00:00: 00 07-04 23:59 :00 No 500mg Take 1 tablet (500 mg total) by mouth every 8 (eight) hours for 18 days. [facility] ciprofloxac in HCl (CIPRO) 500 MG tablet 2022-07 00:00: 00 07-04 23:59 :00 No 500mg Q.5D Take 1 tablet (500 mg total) by mouth 2 (two) times daily for 18 days. [facility] metroNIDAZO LE (FLAGYL) 500 MG tablet 2022-07 00:00: 00 07-04 23:59 :00 No 500mg Take 1 tablet (500 mg total) by mouth every 8 (eight) hours for 18 days. [facility] ciprofloxac in HCl (CIPRO) 500 MG tablet 2022-07 00:00: 00 07-04 23:59 :00 No 500mg Q.5D Take 1 tablet (500 mg total) by mouth 2 (two) times daily for 18 days. [facility] metroNIDAZO LE (FLAGYL) 500 MG tablet 2022-07 00:00: 00 07-04 23:59 :00 Yes 500mg Take 1 tablet (500 mg total) by mouth every 8 (eight) hours for 18 days. [facility] ciprofloxac in HCl (CIPRO) 500 MG tablet 2022-07 00:00: 00 07-04 23:59 :00 Yes 500mg Q.5D Take 1 tablet (500 mg total) by mouth 2 (two) times daily for 18 days. [facility] metroNIDAZO LE (FLAGYL) 500 MG tablet 2022-07 00:00: 00 07-04 23:59 :00 Yes 500mg Take 1 tablet (500 mg total) by mouth every 8 (eight) hours for 18 days. [facility] ciprofloxac in HCl (CIPRO) 500 MG tablet 2022-07 00:00: 00 07-04 23:59 :00 Yes 500mg Q.5D Take 1 tablet (500 mg total) by mouth 2 (two) times daily for 18 days. [facility] metroNIDAZO LE (FLAGYL) 500 MG tablet 2022-07 00:00: 00 07-04 23:59 :00 No 500mg Take 1 tablet (500 mg total) by mouth every 8 (eight) hours for 18 days. [facility] ciprofloxac in HCl (CIPRO) 500 MG tablet 2022-07 00:00: 00 07-04 23:59 :00 No 500mg Q.5D Take 1 tablet (500 mg total) by mouth 2 (two) times daily for 18 days. [facility] cyclobenzap rine (FLEXERIL) 10 MG tablet 2022-07 00:00: 00 06-26 23:59 :00 No 10mg Q.[id number] 3D Take 1 tablet (10 mg total) by mouth 3 (three) times daily for 10 days. [facility] oxyCODONE (OXY-IR) 10 mg tablet 2022-07 00:00: 00 06-26 23:59 :00 No 10mg Take 1 tablet (10 mg total) by mouth every 8 (eight) hours as needed for up to 10 days. Max Daily Amount: 30 mg [facility] cyclobenzap rine (FLEXERIL) 10 MG tablet 2022-07 00:00: 00 06-26 23:59 :00 No 10mg Q.[id number] 3D Take 1 tablet (10 mg total) by mouth 3 (three) times daily for 10 days. [facility] oxyCODONE (OXY-IR) 10 mg tablet 2022-07 00:00: 00 06-26 23:59 :00 No 10mg Take 1 tablet (10 mg total) by mouth every 8 (eight) hours as needed for up to 10 days. Max Daily Amount: 30 mg [facility] cyclobenzap rine (FLEXERIL) 10 MG tablet 2022-07 00:00: 00 06-26 23:59 :00 No 10mg Q.[id number] 3D Take 1 tablet (10 mg total) by mouth 3 (three) times daily for 10 days. [facility] oxyCODONE (OXY-IR) 10 mg tablet 2022-07 00:00: 00 06-26 23:59 :00 No 10mg Take 1 tablet (10 mg total) by mouth every 8 (eight) hours as needed for up to 10 days. Max Daily Amount: 30 mg [facility] cyclobenzap rine (FLEXERIL) 10 MG tablet 2022-07 00:00: 00 06-26 23:59 :00 No 10mg Q.[id number] 3D Take 1 tablet (10 mg total) by mouth 3 (three) times daily for 10 days. [facility] oxyCODONE (OXY-IR) 10 mg tablet 2022-07 00:00: 00 06-26 23:59 :00 No 10mg Take 1 tablet (10 mg total) by mouth every 8 (eight) hours as needed for up to 10 days. Max Daily Amount: 30 mg [facility] cyclobenzap rine (FLEXERIL) 10 MG tablet 2022-07 00:00: 00 06-26 23:59 :00 No 10mg Q.[id number] 3D Take 1 tablet (10 mg total) by mouth 3 (three) times daily for 10 days. [facility] oxyCODONE (OXY-IR) 10 mg tablet 2022-07 00:00: 00 06-26 23:59 :00 No 10mg Take 1 tablet (10 mg total) by mouth every 8 (eight) hours as needed for up to 10 days. Max Daily Amount: 30 mg [facility] cyclobenzap rine (FLEXERIL) 10 MG tablet 2022-07 00:00: 00 06-26 23:59 :00 No 10mg Q.[id number] 3D Take 1 tablet (10 mg total) by mouth 3 (three) times daily for 10 days. [facility] oxyCODONE (OXY-IR) 10 mg tablet 2022-07 00:00: 00 06-26 23:59 :00 No 10mg Take 1 tablet (10 mg total) by mouth every 8 (eight) hours as needed for up to 10 days. Max Daily Amount: 30 mg [facility] cyclobenzap rine (FLEXERIL) 10 MG tablet 2022-07 00:00: 00 06-26 23:59 :00 No 10mg Q.[id number] 3D Take 1 tablet (10 mg total) by mouth 3 (three) times daily for 10 days. [facility] oxyCODONE (OXY-IR) 10 mg tablet 2022-07 00:00: 00 06-26 23:59 :00 No 10mg Take 1 tablet (10 mg total) by mouth every 8 (eight) hours as needed for up to 10 days. Max Daily Amount: 30 mg [facility] cyclobenzap rine (FLEXERIL) 10 MG tablet 2022-07 00:00: 00 06-26 23:59 :00 No 10mg Q.[id number] 3D Take 1 tablet (10 mg total) by mouth 3 (three) times daily for 10 days. [facility] oxyCODONE (OXY-IR) 10 mg tablet 2022-07 00:00: 00 06-26 23:59 :00 No 10mg Take 1 tablet (10 mg total) by mouth every 8 (eight) hours as needed for up to 10 days. Max Daily Amount: 30 mg [facility] cyclobenzap rine (FLEXERIL) 10 MG tablet 2022-07 00:00: 00 06-26 23:59 :00 No 10mg Q.[id number] 3D Take 1 tablet (10 mg total) by mouth 3 (three) times daily for 10 days. [facility] oxyCODONE (OXY-IR) 10 mg tablet 2022-07 00:00: 00 06-26 23:59 :00 No 10mg Take 1 tablet (10 mg total) by mouth every 8 (eight) hours as needed for up to 10 days. Max Daily Amount: 30 mg [facility] cyclobenzap rine (FLEXERIL) 10 MG tablet 2022-07 00:00: 00 06-26 23:59 :00 No 10mg Q.[id number] 3D Take 1 tablet (10 mg total) by mouth 3 (three) times daily for 10 days. [facility] oxyCODONE (OXY-IR) 10 mg tablet 2022-07 00:00: 00 06-26 23:59 :00 No 10mg Take 1 tablet (10 mg total) by mouth every 8 (eight) hours as needed for up to 10 days. Max Daily Amount: 30 mg [facility] cyclobenzap rine (FLEXERIL) 10 MG tablet 2022-07 00:00: 00 06-26 23:59 :00 No 10mg Q.[id number] 3D Take 1 tablet (10 mg total) by mouth 3 (three) times daily for 10 days. [facility] oxyCODONE (OXY-IR) 10 mg tablet 2022-07 00:00: 00 06-26 23:59 :00 No 10mg Take 1 tablet (10 mg total) by mouth every 8 (eight) hours as needed for up to 10 days. Max Daily Amount: 30 mg [facility] cyclobenzap rine (FLEXERIL) 10 MG tablet 2022-07 00:00: 00 06-26 23:59 :00 Yes 10mg Q.[id number] 3D Take 1 tablet (10 mg total) by mouth 3 (three) times daily for 10 days. [facility] oxyCODONE (OXY-IR) 10 mg tablet 2022-07 00:00: 00 06-26 23:59 :00 Yes 10mg Take 1 tablet (10 mg total) by mouth every 8 (eight) hours as needed for up to 10 days. Max Daily Amount: 30 mg [facility] cyclobenzap rine (FLEXERIL) 10 MG tablet 2022-07 00:00: 00 06-26 23:59 :00 Yes 10mg Q.[id number] 3D Take 1 tablet (10 mg total) by mouth 3 (three) times daily for 10 days. [facility] oxyCODONE (OXY-IR) 10 mg tablet 2022-07 00:00: 00 06-26 23:59 :00 Yes 10mg Take 1 tablet (10 mg total) by mouth every 8 (eight) hours as needed for up to 10 days. Max Daily Amount: 30 mg [facility] cyclobenzap rine (FLEXERIL) 10 MG tablet 2022-07 00:00: 00 06-26 23:59 :00 No 10mg Q.[id number] 3D Take 1 tablet (10 mg total) by mouth 3 (three) times daily for 10 days. [facility] oxyCODONE (OXY-IR) 10 mg tablet 2022-07 00:00: 00 06-26 23:59 :00 No 10mg Take 1 tablet (10 mg total) by mouth every 8 (eight) hours as needed for up to 10 days. Max Daily Amount: 30 mg [facility] nystatin (MYCOSTATIN ) 100,000 unit/mL suspension 2022-07 00:00: 00 06-21 23:59 :00 No [id number] Q.25D Take 5 mLs (500,000 Units total) by mouth 4 (four) times daily for 5 days. [facility] nystatin (MYCOSTATIN ) 100,000 unit/mL suspension 2022-07 00:00: 00 06-21 23:59 :00 No [id number] Q.25D Take 5 mLs (500,000 Units total) by mouth 4 (four) times daily for 5 days. [facility] nystatin (MYCOSTATIN ) 100,000 unit/mL suspension 2022-07 00:00: 00 06-21 23:59 :00 No [id number] Q.25D Take 5 mLs (500,000 Units total) by mouth 4 (four) times daily for 5 days. [facility] nystatin (MYCOSTATIN ) 100,000 unit/mL suspension 2022-07 00:00: 00 06-21 23:59 :00 No [id number] Q.25D Take 5 mLs (500,000 Units total) by mouth 4 (four) times daily for 5 days. [facility] nystatin (MYCOSTATIN ) 100,000 unit/mL suspension 2022-07 00:00: 00 06-21 23:59 :00 No [id number] Q.25D Take 5 mLs (500,000 Units total) by mouth 4 (four) times daily for 5 days. [facility] nystatin (MYCOSTATIN ) 100,000 unit/mL suspension 2022-07 00:00: 00 06-21 23:59 :00 No [id number] Q.25D Take 5 mLs (500,000 Units total) by mouth 4 (four) times daily for 5 days. [facility] nystatin (MYCOSTATIN ) 100,000 unit/mL suspension 2022-07 00:00: 00 06-21 23:59 :00 No [id number] Q.25D Take 5 mLs (500,000 Units total) by mouth 4 (four) times daily for 5 days. [facility] nystatin (MYCOSTATIN ) 100,000 unit/mL suspension 2022-07 00:00: 00 06-21 23:59 :00 No [id number] Q.25D Take 5 mLs (500,000 Units total) by mouth 4 (four) times daily for 5 days. [facility] nystatin (MYCOSTATIN ) 100,000 unit/mL suspension 2022-07 00:00: 00 06-21 23:59 :00 No [id number] Q.25D Take 5 mLs (500,000 Units total) by mouth 4 (four) times daily for 5 days. [facility] nystatin (MYCOSTATIN ) 100,000 unit/mL suspension 2022-07 00:00: 00 06-21 23:59 :00 No [id number] Q.25D Take 5 mLs (500,000 Units total) by mouth 4 (four) times daily for 5 days. [facility] nystatin (MYCOSTATIN ) 100,000 unit/mL suspension 2022-07 00:00: 00 06-21 23:59 :00 No [id number] Q.25D Take 5 mLs (500,000 Units total) by mouth 4 (four) times daily for 5 days. [facility] nystatin (MYCOSTATIN ) 100,000 unit/mL suspension 2022-07 00:00: 00 06-21 23:59 :00 Yes [id number] Q.25D Take 5 mLs (500,000 Units total) by mouth 4 (four) times daily for 5 days. [facility] nystatin (MYCOSTATIN ) 100,000 unit/mL suspension 2022-07 00:00: 00 06-21 23:59 :00 Yes [id number] Q.25D Take 5 mLs (500,000 Units total) by mouth 4 (four) times daily for 5 days. [facility] nystatin (MYCOSTATIN ) 100,000 unit/mL suspension 2022-07 00:00: 00 06-21 23:59 :00 No [id number] Q.25D Take 5 mLs (500,000 Units total) by mouth 4 (four) times daily for 5 days. [facility] dexAMETHaso ne (DECADRON) 2 MG tablet 2022-07 00:00: 00 06-08 23:59 :00 No 1mg Take 0.5 tablets (1 mg total) by mouth 2 (two) times daily with breakfast and dinner for 2 days. [facility] dexAMETHaso ne (DECADRON) 2 MG tablet 2022-07 00:00: 00 06-08 23:59 :00 No 1mg Take 0.5 tablets (1 mg total) by mouth 2 (two) times daily with breakfast and dinner for 2 days. [facility] dexAMETHaso ne (DECADRON) 2 MG tablet 2022-07 00:00: 00 06-08 23:59 :00 No 1mg Take 0.5 tablets (1 mg total) by mouth 2 (two) times daily with breakfast and dinner for 2 days. [facility] dexAMETHaso ne (DECADRON) 2 MG tablet 2022-07 00:00: 00 06-08 23:59 :00 No 1mg Take 0.5 tablets (1 mg total) by mouth 2 (two) times daily with breakfast and dinner for 2 days. [facility] dexAMETHaso ne (DECADRON) 2 MG tablet 2022-07 00:00: 00 06-08 23:59 :00 No 1mg Take 0.5 tablets (1 mg total) by mouth 2 (two) times daily with breakfast and dinner for 2 days. [facility] dexAMETHaso ne (DECADRON) 2 MG tablet 2022-07 00:00: 00 06-08 23:59 :00 No 1mg Take 0.5 tablets (1 mg total) by mouth 2 (two) times daily with breakfast and dinner for 2 days. [facility] dexAMETHaso ne (DECADRON) 2 MG tablet 2022-07 00:00: 00 06-08 23:59 :00 No 1mg Take 0.5 tablets (1 mg total) by mouth 2 (two) times daily with breakfast and dinner for 2 days. [facility] dexAMETHaso ne (DECADRON) 2 MG tablet 2022-07 00:00: 00 06-08 23:59 :00 No 1mg Take 0.5 tablets (1 mg total) by mouth 2 (two) times daily with breakfast and dinner for 2 days. [facility] dexAMETHaso ne (DECADRON) 2 MG tablet 2022-07 00:00: 00 06-08 23:59 :00 No 1mg Take 0.5 tablets (1 mg total) by mouth 2 (two) times daily with breakfast and dinner for 2 days. [facility] dexAMETHaso ne (DECADRON) 2 MG tablet 2022-07 00:00: 00 06-08 23:59 :00 No 1mg Take 0.5 tablets (1 mg total) by mouth 2 (two) times daily with breakfast and dinner for 2 days. [facility] dexAMETHaso ne (DECADRON) 2 MG tablet 2022-07 00:00: 00 06-08 23:59 :00 No 1mg Take 0.5 tablets (1 mg total) by mouth 2 (two) times daily with breakfast and dinner for 2 days. [facility] dexAMETHaso ne (DECADRON) 2 MG tablet 2022-07 00:00: 00 06-08 23:59 :00 Yes 1mg Take 0.5 tablets (1 mg total) by mouth 2 (two) times daily with breakfast and dinner for 2 days. [facility] dexAMETHaso ne (DECADRON) 2 MG tablet 2022-07 00:00: 00 06-08 23:59 :00 Yes 1mg Take 0.5 tablets (1 mg total) by mouth 2 (two) times daily with breakfast and dinner for 2 days. [facility] dexAMETHaso ne (DECADRON) 2 MG tablet 2022-07 00:00: 00 06-08 23:59 :00 No 1mg Take 0.5 tablets (1 mg total) by mouth 2 (two) times daily with breakfast and dinner for 2 days. [facility] dexAMETHaso ne (DECADRON) 2 MG tablet 2022-07 00:00: 00 06-08 23:59 :00 No 1mg Take 0.5 tablets (1 mg total) by mouth 2 (two) times daily with breakfast and dinner for 2 days. [facility] dexAMETHaso ne (DECADRON) 2 MG tablet 2022-07 00:00: 00 06-08 23:59 :00 No 1mg Take 0.5 tablets (1 mg total) by mouth 2 (two) times daily with breakfast and dinner for 2 days. [facility] dexAMETHaso ne (DECADRON) 2 MG tablet 2022-07 00:00: 00 06-08 23:59 :00 No 1mg Take 0.5 tablets (1 mg total) by mouth 2 (two) times daily with breakfast and dinner for 2 days. [facility] dexAMETHaso ne (DECADRON) 2 MG tablet 2022-07 00:00: 00 06-06 23:59 :00 No 2mg Take 1 tablet (2 mg total) by mouth 2 (two) times daily with breakfast and dinner for 1 day. [facility] dexAMETHaso ne (DECADRON) 2 MG tablet 2022-07 00:00: 00 06-06 23:59 :00 No 2mg Take 1 tablet (2 mg total) by mouth 2 (two) times daily with breakfast and dinner for 1 day. [facility] dexAMETHaso ne (DECADRON) 2 MG tablet 2022-07 00:00: 00 06-06 23:59 :00 No 2mg Take 1 tablet (2 mg total) by mouth 2 (two) times daily with breakfast and dinner for 1 day. [facility] dexAMETHaso ne (DECADRON) 2 MG tablet 2022-07 00:00: 00 06-06 23:59 :00 No 2mg Take 1 tablet (2 mg total) by mouth 2 (two) times daily with breakfast and dinner for 1 day. [facility] dexAMETHaso ne (DECADRON) 2 MG tablet 2022-07 00:00: 00 06-06 23:59 :00 No 2mg Take 1 tablet (2 mg total) by mouth 2 (two) times daily with breakfast and dinner for 1 day. [facility] dexAMETHaso ne (DECADRON) 2 MG tablet 2022-07 00:00: 00 06-06 23:59 :00 No 2mg Take 1 tablet (2 mg total) by mouth 2 (two) times daily with breakfast and dinner for 1 day. [facility] dexAMETHaso ne (DECADRON) 2 MG tablet 2022-07 00:00: 00 06-06 23:59 :00 No 2mg Take 1 tablet (2 mg total) by mouth 2 (two) times daily with breakfast and dinner for 1 day. [facility] dexAMETHaso ne (DECADRON) 2 MG tablet 2022-07 00:00: 00 06-06 23:59 :00 No 2mg Take 1 tablet (2 mg total) by mouth 2 (two) times daily with breakfast and dinner for 1 day. [facility] dexAMETHaso ne (DECADRON) 2 MG tablet 2022-07 00:00: 00 06-06 23:59 :00 No 2mg Take 1 tablet (2 mg total) by mouth 2 (two) times daily with breakfast and dinner for 1 day. [facility] dexAMETHaso ne (DECADRON) 2 MG tablet 2022-07 00:00: 00 06-06 23:59 :00 No 2mg Take 1 tablet (2 mg total) by mouth 2 (two) times daily with breakfast and dinner for 1 day. [facility] dexAMETHaso ne (DECADRON) 2 MG tablet 2022-07 00:00: 00 06-06 23:59 :00 No 2mg Take 1 tablet (2 mg total) by mouth 2 (two) times daily with breakfast and dinner for 1 day. [facility] dexAMETHaso ne (DECADRON) 2 MG tablet 2022-07 00:00: 00 06-06 23:59 :00 Yes 2mg Take 1 tablet (2 mg total) by mouth 2 (two) times daily with breakfast and dinner for 1 day. [facility] dexAMETHaso ne (DECADRON) 2 MG tablet 2022-07 00:00: 00 06-06 23:59 :00 Yes 2mg Take 1 tablet (2 mg total) by mouth 2 (two) times daily with breakfast and dinner for 1 day. [facility] dexAMETHaso ne (DECADRON) 2 MG tablet 2022-07 00:00: 00 06-06 23:59 :00 No 2mg Take 1 tablet (2 mg total) by mouth 2 (two) times daily with breakfast and dinner for 1 day. [facility] dexAMETHaso ne (DECADRON) 2 MG tablet 2022-07 00:00: 00 06-06 23:59 :00 No 2mg Take 1 tablet (2 mg total) by mouth 2 (two) times daily with breakfast and dinner for 1 day. [facility] dexAMETHaso ne (DECADRON) 2 MG tablet 2022-07 00:00: 00 06-06 23:59 :00 No 2mg Take 1 tablet (2 mg total) by mouth 2 (two) times daily with breakfast and dinner for 1 day. [facility] dexAMETHaso ne (DECADRON) 2 MG tablet 2022-07 00:00: 00 06-06 23:59 :00 No 2mg Take 1 tablet (2 mg total) by mouth 2 (two) times daily with breakfast and dinner for 1 day. [facility] metoprolol succinate (TOPROL-XL) 25 MG 24 hr tablet 2022-07 17:44: 21 Yes 25mg QD Take 1 tablet (25 mg total) by mouth daily. [facility] varenicline (CHANTIX) 1 mg tablet 2022-07 17:44: 21 Yes 1mg Q.5D Take 1 tablet (1 mg total) by mouth 2 (two) times daily Give with meals and with a full glass of water.. [facility] albuterol HFA (VENTOLIN HFA) 90 mcg/actuati on inhaler 2022-07 17:44: 21 Yes 1{puff} Inhale 1 puff by mouth via inhaler every 6 (six) hours as needed for Wheezing. [facility] fluticasone -umeclidin- vilanter (Trelegy Ellipta) 200-62.5-25 mcg DsDv 2022-07 17:44: 21 Yes QD Inhale by mouth via inhaler daily. [facility] atorvastati n (LIPITOR) 20 MG tablet 2022-07 17:44: 21 Yes 20mg QD Take 1 tablet (20 mg total) by mouth daily. [facility] acetaminoph en-codeine (TYLENOL #3) 300-30 mg per tablet 2022-07 17:44: 21 Yes 1{tbl} Take 1 tablet by mouth every 4 (four) hours as needed for Pain. [facility] metoprolol succinate (TOPROL-XL) 25 MG 24 hr tablet 2023-1 1-16 17:44: 21 Yes 25mg QD Take 1 tablet (25 mg total) by mouth daily. [facility] varenicline (CHANTIX) 1 mg tablet 2022-07 17:44: 21 Yes 1mg Q.5D Take 1 tablet (1 mg total) by mouth 2 (two) times daily Give with meals and with a full glass of water.. [facility] albuterol HFA (VENTOLIN HFA) 90 mcg/actuati on inhaler 2022-07 17:44: 21 Yes 1{puff} Inhale 1 puff by mouth via inhaler every 6 (six) hours as needed for Wheezing. [facility] fluticasone -umeclidin- vilanter (Trelegy Ellipta) 200-62.5-25 mcg DsDv 2022-07 17:44: 21 Yes QD Inhale by mouth via inhaler daily. [facility] atorvastati n (LIPITOR) 20 MG tablet 2022-07 17:44: 21 Yes 20mg QD Take 1 tablet (20 mg total) by mouth daily. [facility] acetaminoph en-codeine (TYLENOL #3) 300-30 mg per tablet 2022-07 17:44: 21 Yes 1{tbl} Take 1 tablet by mouth every 4 (four) hours as needed for Pain. [facility] metoprolol succinate (TOPROL-XL) 25 MG 24 hr tablet 2022-07 17:44: 21 Yes 25mg QD Take 1 tablet (25 mg total) by mouth daily. [facility] varenicline (CHANTIX) 1 mg tablet 2022-07 17:44: 21 Yes 1mg Q.5D Take 1 tablet (1 mg total) by mouth 2 (two) times daily Give with meals and with a full glass of water.. [facility] albuterol HFA (VENTOLIN HFA) 90 mcg/actuati on inhaler 2022-07 17:44: 21 Yes 1{puff} Inhale 1 puff by mouth via inhaler every 6 (six) hours as needed for Wheezing. [facility] fluticasone -umeclidin- vilanter (Trelegy Ellipta) 200-62.5-25 mcg DsDv 2022-07 17:44: 21 Yes QD Inhale by mouth via inhaler daily. [facility] atorvastati n (LIPITOR) 20 MG tablet 2022-07 17:44: 21 Yes 20mg QD Take 1 tablet (20 mg total) by mouth daily. [facility] acetaminoph en-codeine (TYLENOL #3) 300-30 mg per tablet 2022-07 17:44: 21 Yes 1{tbl} Take 1 tablet by mouth every 4 (four) hours as needed for Pain. [facility] senna (SENOKOT) 8.6 mg tablet 2022-07 00:00: 00 06-18 23:59 :00 No 17.2mg Q.5D Take 2 tablets (17.2 mg total) by mouth 2 (two) times daily for 14 days. [facility] senna (SENOKOT) 8.6 mg tablet 2022-07 00:00: 00 06-18 23:59 :00 No 17.2mg Q.5D Take 2 tablets (17.2 mg total) by mouth 2 (two) times daily for 14 days. [facility] senna (SENOKOT) 8.6 mg tablet 2022-07 00:00: 00 06-18 23:59 :00 No 17.2mg Q.5D Take 2 tablets (17.2 mg total) by mouth 2 (two) times daily for 14 days. [facility] senna (SENOKOT) 8.6 mg tablet 2022-07 00:00: 00 06-18 23:59 :00 No 17.2mg Q.5D Take 2 tablets (17.2 mg total) by mouth 2 (two) times daily for 14 days. [facility] senna (SENOKOT) 8.6 mg tablet 2022-07 00:00: 00 06-18 23:59 :00 No 17.2mg Q.5D Take 2 tablets (17.2 mg total) by mouth 2 (two) times daily for 14 days. [facility] senna (SENOKOT) 8.6 mg tablet 2022-0716 00:00: 00 06-18 23:59 :00 No 17.2mg Q.5D Take 2 tablets (17.2 mg total) by mouth 2 (two) times daily for 14 days. [facility] senna (SENOKOT) 8.6 mg tablet 2022-07 00:00: 00 06-18 23:59 :00 No 17.2mg Q.5D Take 2 tablets (17.2 mg total) by mouth 2 (two) times daily for 14 days. [facility] senna (SENOKOT) 8.6 mg tablet 2022-07 00:00: 00 06-18 23:59 :00 No 17.2mg Q.5D Take 2 tablets (17.2 mg total) by mouth 2 (two) times daily for 14 days. [facility] senna (SENOKOT) 8.6 mg tablet 2022-07 00:00: 00 06-18 23:59 :00 No 17.2mg Q.5D Take 2 tablets (17.2 mg total) by mouth 2 (two) times daily for 14 days. [facility] senna (SENOKOT) 8.6 mg tablet 2022-07 00:00: 00 06-18 23:59 :00 No 17.2mg Q.5D Take 2 tablets (17.2 mg total) by mouth 2 (two) times daily for 14 days. [facility] senna (SENOKOT) 8.6 mg tablet 2022-07 00:00: 00 06-18 23:59 :00 No 17.2mg Q.5D Take 2 tablets (17.2 mg total) by mouth 2 (two) times daily for 14 days. [facility] senna (SENOKOT) 8.6 mg tablet 2022-0716 00:00: 00 06-18 23:59 :00 Yes 17.2mg Q.5D Take 2 tablets (17.2 mg total) by mouth 2 (two) times daily for 14 days. [facility] senna (SENOKOT) 8.6 mg tablet 2022-07 00:00: 00 06-18 23:59 :00 Yes 17.2mg Q.5D Take 2 tablets (17.2 mg total) by mouth 2 (two) times daily for 14 days. [facility] senna (SENOKOT) 8.6 mg tablet 2022-07 00:00: 00 06-18 23:59 :00 Yes 17.2mg Q.5D Take 2 tablets (17.2 mg total) by mouth 2 (two) times daily for 14 days. [facility] senna (SENOKOT) 8.6 mg tablet 2022-07 00:00: 00 06-18 23:59 :00 Yes 17.2mg Q.5D Take 2 tablets (17.2 mg total) by mouth 2 (two) times daily for 14 days. [facility] senna (SENOKOT) 8.6 mg tablet 2022-07 00:00: 00 06-18 23:59 :00 No 17.2mg Q.5D Take 2 tablets (17.2 mg total) by mouth 2 (two) times daily for 14 days. [facility] senna (SENOKOT) 8.6 mg tablet 2022-07 00:00: 00 06-18 23:59 :00 No 17.2mg Q.5D Take 2 tablets (17.2 mg total) by mouth 2 (two) times daily for 14 days. [facility] cyclobenzap rine (FLEXERIL) 10 MG tablet 2022-07 00:00: 00 06-16 00:00 :00 No 10mg Q.[id number] 3D Take 1 tablet (10 mg total) by mouth 3 (three) times daily for 10 days. [facility] methocarbam oL (ROBAXIN) 500 MG tablet 2022-07 00:00: 00 06-16 00:00 :00 No 500mg Q.25D Take 1 tablet (500 mg total) by mouth 4 (four) times daily for 10 days. [facility] cyclobenzap rine (FLEXERIL) 10 MG tablet 2022-07 00:00: 00 06-16 00:00 :00 No 10mg Q.[id number] 3D Take 1 tablet (10 mg total) by mouth 3 (three) times daily for 10 days. [facility] methocarbam oL (ROBAXIN) 500 MG tablet 2022-07 00:00: 00 06-16 00:00 :00 No 500mg Q.25D Take 1 tablet (500 mg total) by mouth 4 (four) times daily for 10 days. [facility] cyclobenzap rine (FLEXERIL) 10 MG tablet 2022-07 00:00: 00 06-16 00:00 :00 No 10mg Q.[id number] 3D Take 1 tablet (10 mg total) by mouth 3 (three) times daily for 10 days. [facility] methocarbam oL (ROBAXIN) 500 MG tablet 2022-07 00:00: 00 06-16 00:00 :00 No 500mg Q.25D Take 1 tablet (500 mg total) by mouth 4 (four) times daily for 10 days. [facility] cyclobenzap rine (FLEXERIL) 10 MG tablet 2022-07 00:00: 00 06-16 00:00 :00 No 10mg Q.[id number] 3D Take 1 tablet (10 mg total) by mouth 3 (three) times daily for 10 days. [facility] methocarbam oL (ROBAXIN) 500 MG tablet 2022-07 00:00: 00 06-16 00:00 :00 No 500mg Q.25D Take 1 tablet (500 mg total) by mouth 4 (four) times daily for 10 days. [facility] cyclobenzap rine (FLEXERIL) 10 MG tablet 2022-07 00:00: 00 06-16 00:00 :00 No 10mg Q.28764437 [id number] 3D Take 1 tablet (10 mg total) by mouth 3 (three) times daily for 10 days. [facility] methocarbam oL (ROBAXIN) 500 MG tablet 2022-07 00:00: 00 06-16 00:00 :00 No 500mg Q.25D Take 1 tablet (500 mg total) by mouth 4 (four) times daily for 10 days. [facility] cyclobenzap rine (FLEXERIL) 10 MG tablet 2022-07 00:00: 00 06-16 00:00 :00 No 10mg Q.40636909 [id number] 3D Take 1 tablet (10 mg total) by mouth 3 (three) times daily for 10 days. [facility] methocarbam oL (ROBAXIN) 500 MG tablet 2022-07 00:00: 00 06-16 00:00 :00 No 500mg Q.25D Take 1 tablet (500 mg total) by mouth 4 (four) times daily for 10 days. [facility] cyclobenzap rine (FLEXERIL) 10 MG tablet 2022-07 00:00: 00 06-16 00:00 :00 No 10mg Q.25941584 [id number] 3D Take 1 tablet (10 mg total) by mouth 3 (three) times daily for 10 days. [facility] methocarbam oL (ROBAXIN) 500 MG tablet 2022-07 00:00: 00 06-16 00:00 :00 No 500mg Q.25D Take 1 tablet (500 mg total) by mouth 4 (four) times daily for 10 days. [facility] cyclobenzap rine (FLEXERIL) 10 MG tablet 2022-07 00:00: 00 06-16 00:00 :00 No 10mg Q.52275841 [id number] 3D Take 1 tablet (10 mg total) by mouth 3 (three) times daily for 10 days. [facility] methocarbam oL (ROBAXIN) 500 MG tablet 2022-07 00:00: 00 06-16 00:00 :00 No 500mg Q.25D Take 1 tablet (500 mg total) by mouth 4 (four) times daily for 10 days. [facility] cyclobenzap rine (FLEXERIL) 10 MG tablet 2022-07 00:00: 00 06-16 00:00 :00 No 10mg Q.[id number] 3D Take 1 tablet (10 mg total) by mouth 3 (three) times daily for 10 days. [facility] methocarbam oL (ROBAXIN) 500 MG tablet 2022-07 00:00: 00 06-16 00:00 :00 No 500mg Q.25D Take 1 tablet (500 mg total) by mouth 4 (four) times daily for 10 days. [facility] cyclobenzap rine (FLEXERIL) 10 MG tablet 2022-07 00:00: 00 06-16 00:00 :00 No 10mg Q.[id number] [id number] 3D Take 1 tablet (10 mg total) by mouth 3 (three) times daily for 10 days. [facility] methocarbam oL (ROBAXIN) 500 MG tablet 2022-07 00:00: 00 06-16 00:00 :00 No 500mg Q.25D Take 1 tablet (500 mg total) by mouth 4 (four) times daily for 10 days. [facility] cyclobenzap rine (FLEXERIL) 10 MG tablet 2022-07 00:00: 00 06-16 00:00 :00 No 10mg Q.60093569 [id number] 3D Take 1 tablet (10 mg total) by mouth 3 (three) times daily for 10 days. [facility] methocarbam oL (ROBAXIN) 500 MG tablet 2022-07 00:00: 00 06-16 00:00 :00 No 500mg Q.25D Take 1 tablet (500 mg total) by mouth 4 (four) times daily for 10 days. [facility] cyclobenzap rine (FLEXERIL) 10 MG tablet 2022-07 00:00: 00 06-16 00:00 :00 No 10mg Q.[id number] [id number] 3D Take 1 tablet (10 mg total) by mouth 3 (three) times daily for 10 days. [facility] methocarbam oL (ROBAXIN) 500 MG tablet 2022-07 00:00: 00 06-16 00:00 :00 No 500mg Q.25D Take 1 tablet (500 mg total) by mouth 4 (four) times daily for 10 days. [facility] cyclobenzap rine (FLEXERIL) 10 MG tablet 2022-07 00:00: 00 06-16 00:00 :00 No 10mg Q.33512047 [id number] 3D Take 1 tablet (10 mg total) by mouth 3 (three) times daily for 10 days. [facility] methocarbam oL (ROBAXIN) 500 MG tablet 2022-07 00:00: 00 06-16 00:00 :00 No 500mg Q.25D Take 1 tablet (500 mg total) by mouth 4 (four) times daily for 10 days. [facility] cyclobenzap rine (FLEXERIL) 10 MG tablet 2022-07 00:00: 00 06-16 00:00 :00 No 10mg Q.27823955 [id number] 3D Take 1 tablet (10 mg total) by mouth 3 (three) times daily for 10 days. [facility] methocarbam oL (ROBAXIN) 500 MG tablet 2022-07 00:00: 00 06-16 00:00 :00 No 500mg Q.25D Take 1 tablet (500 mg total) by mouth 4 (four) times daily for 10 days. [facility] cyclobenzap rine (FLEXERIL) 10 MG tablet 2022-07 00:00: 00 06-14 23:59 :00 Yes 10mg Q.[id number] [id number] 3D Take 1 tablet (10 mg total) by mouth 3 (three) times daily for 10 days. [facility] methocarbam oL (ROBAXIN) 500 MG tablet 2022-07 00:00: 00 06-14 23:59 :00 Yes 500mg Q.25D Take 1 tablet (500 mg total) by mouth 4 (four) times daily for 10 days. [facility] cyclobenzap rine (FLEXERIL) 10 MG tablet 2022-07 00:00: 00 06-14 23:59 :00 Yes 10mg Q.[id number] 3D Take 1 tablet (10 mg total) by mouth 3 (three) times daily for 10 days. [facility] methocarbam oL (ROBAXIN) 500 MG tablet 2022-07 00:00: 00 06-14 23:59 :00 Yes 500mg Q.25D Take 1 tablet (500 mg total) by mouth 4 (four) times daily for 10 days. [facility] cyclobenzap rine (FLEXERIL) 10 MG tablet 2022-07 00:00: 00 06-14 23:59 :00 Yes 10mg Q.[id number] [id number] 3D Take 1 tablet (10 mg total) by mouth 3 (three) times daily for 10 days. [facility] methocarbam oL (ROBAXIN) 500 MG tablet 2022-07 00:00: 00 06-14 23:59 :00 Yes 500mg Q.25D Take 1 tablet (500 mg total) by mouth 4 (four) times daily for 10 days. [facility] lactulose (CHRONULAC) 20 gram/30 mL solution 2022-07 00:00: 00 06-11 23:59 :00 No 20g Q.[id number] 3D Take 30 mLs (20 g total) by mouth 3 (three) times daily for 7 days. [facility] ondansetron (ZOFRAN-ODT ) 4 MG disintegrat ing tablet 2022-07 00:00: 00 06-11 23:59 :00 No 4mg Take 1 tablet (4 mg total) by mouth every 6 (six) hours as needed for up to 7 days. [facility] lactulose (CHRONULAC) 20 gram/30 mL solution 2022-07 00:00: 00 06-11 23:59 :00 No 20g Q.[id number] 3D Take 30 mLs (20 g total) by mouth 3 (three) times daily for 7 days. [facility] ondansetron (ZOFRAN-ODT ) 4 MG disintegrat ing tablet 2022-07 00:00: 00 06-11 23:59 :00 No 4mg Take 1 tablet (4 mg total) by mouth every 6 (six) hours as needed for up to 7 days. [facility] lactulose (CHRONULAC) 20 gram/30 mL solution 2022-07 00:00: 00 06-11 23:59 :00 No 20g Q.74365332 [id number] 3D Take 30 mLs (20 g total) by mouth 3 (three) times daily for 7 days. [facility] ondansetron (ZOFRAN-ODT ) 4 MG disintegrat ing tablet 2022-07 00:00: 00 06-11 23:59 :00 No 4mg Take 1 tablet (4 mg total) by mouth every 6 (six) hours as needed for up to 7 days. [facility] lactulose (CHRONULAC) 20 gram/30 mL solution 2022-07 00:00: 00 06-11 23:59 :00 No 20g Q.[id number] 3D Take 30 mLs (20 g total) by mouth 3 (three) times daily for 7 days. [facility] ondansetron (ZOFRAN-ODT ) 4 MG disintegrat ing tablet 2022-07 00:00: 00 06-11 23:59 :00 No 4mg Take 1 tablet (4 mg total) by mouth every 6 (six) hours as needed for up to 7 days. [facility] lactulose (CHRONULAC) 20 gram/30 mL solution 2022-07 00:00: 00 06-11 23:59 :00 No 20g Q.[id number] 3D Take 30 mLs (20 g total) by mouth 3 (three) times daily for 7 days. [facility] ondansetron (ZOFRAN-ODT ) 4 MG disintegrat ing tablet 2022-07 00:00: 00 06-11 23:59 :00 No 4mg Take 1 tablet (4 mg total) by mouth every 6 (six) hours as needed for up to 7 days. [facility] lactulose (CHRONULAC) 20 gram/30 mL solution 2022-07 00:00: 00 06-11 23:59 :00 No 20g Q.[id number] 3D Take 30 mLs (20 g total) by mouth 3 (three) times daily for 7 days. [facility] ondansetron (ZOFRAN-ODT ) 4 MG disintegrat ing tablet 2022-07 00:00: 00 06-11 23:59 :00 No 4mg Take 1 tablet (4 mg total) by mouth every 6 (six) hours as needed for up to 7 days. [facility] lactulose (CHRONULAC) 20 gram/30 mL solution 2022-07 00:00: 00 06-11 23:59 :00 No 20g Q.[id number] 3D Take 30 mLs (20 g total) by mouth 3 (three) times daily for 7 days. [facility] ondansetron (ZOFRAN-ODT ) 4 MG disintegrat ing tablet 2022-07 00:00: 00 06-11 23:59 :00 No 4mg Take 1 tablet (4 mg total) by mouth every 6 (six) hours as needed for up to 7 days. [facility] lactulose (CHRONULAC) 20 gram/30 mL solution 2022-07 00:00: 00 06-11 23:59 :00 No 20g Q.[id number] 3D Take 30 mLs (20 g total) by mouth 3 (three) times daily for 7 days. [facility] ondansetron (ZOFRAN-ODT ) 4 MG disintegrat ing tablet 2022-07 00:00: 00 06-11 23:59 :00 No 4mg Take 1 tablet (4 mg total) by mouth every 6 (six) hours as needed for up to 7 days. [facility] lactulose (CHRONULAC) 20 gram/30 mL solution 2022-07 00:00: 00 06-11 23:59 :00 No 20g Q.[id number] [id number] 3D Take 30 mLs (20 g total) by mouth 3 (three) times daily for 7 days. [facility] ondansetron (ZOFRAN-ODT ) 4 MG disintegrat ing tablet 2022-07 00:00: 00 06-11 23:59 :00 No 4mg Take 1 tablet (4 mg total) by mouth every 6 (six) hours as needed for up to 7 days. [facility] lactulose (CHRONULAC) 20 gram/30 mL solution 2022-07 00:00: 00 06-11 23:59 :00 No 20g Q.[id number] 3D Take 30 mLs (20 g total) by mouth 3 (three) times daily for 7 days. [facility] ondansetron (ZOFRAN-ODT ) 4 MG disintegrat ing tablet 2022-07 00:00: 00 06-11 23:59 :00 No 4mg Take 1 tablet (4 mg total) by mouth every 6 (six) hours as needed for up to 7 days. [facility] lactulose (CHRONULAC) 20 gram/30 mL solution 2022-07 00:00: 00 06-11 23:59 :00 No 20g Q.[id number] 3D Take 30 mLs (20 g total) by mouth 3 (three) times daily for 7 days. [facility] ondansetron (ZOFRAN-ODT ) 4 MG disintegrat ing tablet 2022-07 00:00: 00 06-11 23:59 :00 No 4mg Take 1 tablet (4 mg total) by mouth every 6 (six) hours as needed for up to 7 days. [facility] lactulose (CHRONULAC) 20 gram/30 mL solution 2022-07 00:00: 00 06-11 23:59 :00 Yes 20g Q.[id number] 3D Take 30 mLs (20 g total) by mouth 3 (three) times daily for 7 days. [facility] ondansetron (ZOFRAN-ODT ) 4 MG disintegrat ing tablet 2022-07 00:00: 00 06-11 23:59 :00 Yes 4mg Take 1 tablet (4 mg total) by mouth every 6 (six) hours as needed for up to 7 days. [facility] lactulose (CHRONULAC) 20 gram/30 mL solution 2022-07 00:00: 00 06-11 23:59 :00 Yes 20g Q.[id number] 3D Take 30 mLs (20 g total) by mouth 3 (three) times daily for 7 days. [facility] ondansetron (ZOFRAN-ODT ) 4 MG disintegrat ing tablet 2022-07 00:00: 00 06-11 23:59 :00 Yes 4mg Take 1 tablet (4 mg total) by mouth every 6 (six) hours as needed for up to 7 days. [facility] lactulose (CHRONULAC) 20 gram/30 mL solution 2022-07 00:00: 00 06-11 23:59 :00 No 20g [id number] 3D Take 30 mLs (20 g total) by mouth 3 (three) times daily for 7 days. [facility] ondansetron (ZOFRAN-ODT ) 4 MG disintegrat ing tablet 2022-07 00:00: 00 06-11 23:59 :00 No 4mg Take 1 tablet (4 mg total) by mouth every 6 (six) hours as needed for up to 7 days. [facility] lactulose (CHRONULAC) 20 gram/30 mL solution 2022-07 00:00: 00 06-11 23:59 :00 No 20g Q.[id number] 3D Take 30 mLs (20 g total) by mouth 3 (three) times daily for 7 days. [facility] ondansetron (ZOFRAN-ODT ) 4 MG disintegrat ing tablet 2022-07 00:00: 00 06-11 23:59 :00 No 4mg Take 1 tablet (4 mg total) by mouth every 6 (six) hours as needed for up to 7 days. [facility] lactulose (CHRONULAC) 20 gram/30 mL solution 2022-07 00:00: 00 06-11 23:59 :00 No 20g Q.[id number] 3D Take 30 mLs (20 g total) by mouth 3 (three) times daily for 7 days. [facility] ondansetron (ZOFRAN-ODT ) 4 MG disintegrat ing tablet 2022-07 00:00: 00 06-11 23:59 :00 No 4mg Take 1 tablet (4 mg total) by mouth every 6 (six) hours as needed for up to 7 days. [facility] lactulose (CHRONULAC) 20 gram/30 mL solution 2022-07 00:00: 00 06-11 23:59 :00 No 20g Q.[id number] 3D Take 30 mLs (20 g total) by mouth 3 (three) times daily for 7 days. [facility] ondansetron (ZOFRAN-ODT ) 4 MG disintegrat ing tablet 2022-07 00:00: 00 06-11 23:59 :00 No 4mg Take 1 tablet (4 mg total) by mouth every 6 (six) hours as needed for up to 7 days. [facility] metoprolol succinate (TOPROL-XL) 25 MG 24 hr tablet 2022-07 15:23: 22 Yes 25mg QD Take 1 tablet (25 mg total) by mouth daily. [facility] varenicline (CHANTIX) 1 mg tablet 2022-07 15:23: 22 Yes 1mg Q.5D Take 1 tablet (1 mg total) by mouth 2 (two) times daily Give with meals and with a full glass of water.. [facility] albuterol HFA (VENTOLIN HFA) 90 mcg/actuati on inhaler 2022-07 15:23: 22 Yes 1{puff} Inhale 1 puff by mouth via inhaler every 6 (six) hours as needed for Wheezing. [facility] fluticasone -umeclidin- vilanter (Trelegy Ellipta) 200-62.5-25 mcg DsDv 2022-07 15:23: 22 Yes QD Inhale by mouth via inhaler daily. [facility] atorvastati n (LIPITOR) 20 MG tablet 2022-07 15:23: 22 Yes 20mg QD Take 1 tablet (20 mg total) by mouth daily. [facility] acetaminoph en-codeine (TYLENOL #3) 300-30 mg per tablet 2022-07 15:23: 22 Yes 1{tbl} Take 1 tablet by mouth every 4 (four) hours as needed for Pain. [facility] acetaminoph en-codeine (TYLENOL #3) 300-30 mg per tablet 2022-07 09:42: 02 Yes 1{tbl} Take 1 tablet by mouth every 4 (four) hours as needed for Pain. Max Daily Amount: 6 tablets [facility] acetaminoph en-codeine (TYLENOL #3) 300-30 mg per tablet 2022-07 09:42: 02 Yes 1{tbl} Take 1 tablet by mouth every 4 (four) hours as needed for Pain. Max Daily Amount: 6 tablets [facility] varenicline (CHANTIX) 1 mg tablet 2022-07 09:40: 04 Yes 1mg Q.5D Take 1 tablet (1 mg total) by mouth 2 (two) times daily Give with meals and with a full glass of water.. [facility] albuterol HFA (VENTOLIN HFA) 90 mcg/actuati on inhaler 2022-07 09:40: 04 Yes 1{puff} Inhale 1 puff by mouth via inhaler every 6 (six) hours as needed for Wheezing. [facility] fluticasone -umeclidin- vilanter (Trelegy Ellipta) 200-62.5-25 mcg DsDv 2022-07 09:40: 04 Yes QD Inhale by mouth via inhaler daily. [facility] atorvastati n (LIPITOR) 20 MG tablet 2022-07 09:40: 04 Yes 20mg QD Take 1 tablet (20 mg total) by mouth daily. [facility] varenicline (CHANTIX) 1 mg tablet 2022-07 09:40: 04 Yes 1mg Q.5D Take 1 tablet (1 mg total) by mouth 2 (two) times daily Give with meals and with a full glass of water.. [facility] albuterol HFA (VENTOLIN HFA) 90 mcg/actuati on inhaler 2022-07 09:40: 04 Yes 1{puff} Inhale 1 puff by mouth via inhaler every 6 (six) hours as needed for Wheezing. [facility] fluticasone -umeclidin- vilanter (Trelegy Ellipta) 200-62.5-25 mcg DsDv 2022-07 09:40: 04 Yes QD Inhale by mouth via inhaler daily. [facility] atorvastati n (LIPITOR) 20 MG tablet 2022-07 09:40: 04 Yes 20mg QD Take 1 tablet (20 mg total) by mouth daily. [facility] metoprolol succinate (TOPROL-XL) 25 MG 24 hr tablet 2022-07 09:13: 28 Yes 25mg QD Take 1 tablet (25 mg total) by mouth daily. [facility] metoprolol succinate (TOPROL-XL) 25 MG 24 hr tablet 2022-07 09:13: 28 Yes 25mg QD Take 1 tablet (25 mg total) by mouth daily. [facility] furosemide (LASIX) 20 MG tablet 04-03 00:00: 00 04-02 23:59 :00 No 20mg QD Take 1 tablet (20 mg total) by mouth daily. [facility] furosemide (LASIX) 20 MG tablet 04-03 00:00: 00 04-02 23:59 :00 No 20mg QD Take 1 tablet (20 mg total) by mouth daily. [facility] DULoxetine (CYMBALTA) 30 MG capsule -15 00:00: 00 04-02 23:59 :00 No 30mg QD Take 1 capsule (30 mg total) by mouth daily. [facility] furosemide (LASIX) 20 MG tablet 15 00:00: 00 04-02 23:59 :00 No 20mg QD Take 1 tablet (20 mg total) by mouth daily. [facility] lisinopriL (PRINIVIL,Z ESTRIL) 5 MG tablet 04-03 00:00: 00 04-02 23:59 :00 No 5mg QD Take 1 tablet (5 mg total) by mouth daily. [facility] furosemide (LASIX) 20 MG tablet 04-03 00:00: 00 04-02 23:59 :00 No 20mg QD Take 1 tablet (20 mg total) by mouth daily. [facility] furosemide (LASIX) 20 MG tablet 0 15 00:00: 00 04-02 23:59 :00 No 20mg QD Take 1 tablet (20 mg total) by mouth daily. [facility] furosemide (LASIX) 20 MG tablet 0 15 00:00: 00 04-02 23:59 :00 No 20mg QD Take 1 tablet (20 mg total) by mouth daily. [facility] furosemide (LASIX) 20 MG tablet 0 -15 00:00: 00 04-02 23:59 :00 No 20mg QD Take 1 tablet (20 mg total) by mouth daily. [facility] furosemide (LASIX) 20 MG tablet 2022-0 -15 00:00: 00 04-02 23:59 :00 No 20mg QD Take 1 tablet (20 mg total) by mouth daily. [facility] furosemide (LASIX) 20 MG tablet 2022-0 -15 00:00: 00 04-02 23:59 :00 No 20mg QD Take 1 tablet (20 mg total) by mouth daily. [facility] DULoxetine (CYMBALTA) 30 MG capsule 2022-0 -15 00:00: 00 04-02 23:59 :00 No 30mg QD Take 1 capsule (30 mg total) by mouth daily. [facility] furosemide (LASIX) 20 MG tablet 2022-0 -15 00:00: 00 04-02 23:59 :00 No 20mg QD Take 1 tablet (20 mg total) by mouth daily. [facility] lisinopriL (PRINIVIL,Z ESTRIL) 5 MG tablet 0 -15 00:00: 00 04-02 23:59 :00 No 5mg QD Take 1 tablet (5 mg total) by mouth daily. [facility] furosemide (LASIX) 20 MG tablet 0 -15 00:00: 00 04-02 23:59 :00 No 20mg QD Take 1 tablet (20 mg total) by mouth daily. [facility] furosemide (LASIX) 20 MG tablet 0 -15 00:00: 00 04-02 23:59 :00 No 20mg QD Take 1 tablet (20 mg total) by mouth daily. [facility] furosemide (LASIX) 20 MG tablet 0 -15 00:00: 00 04-02 23:59 :00 No 20mg QD Take 1 tablet (20 mg total) by mouth daily. [facility] furosemide (LASIX) 20 MG tablet 2022-0 -15 00:00: 00 04-02 23:59 :00 No 20mg QD Take 1 tablet (20 mg total) by mouth daily. [facility] DULoxetine (CYMBALTA) 30 MG capsule 2022-0 -15 00:00: 00 04-02 23:59 :00 No 30mg QD Take 1 capsule (30 mg total) by mouth daily. [facility] lisinopriL (PRINIVIL,Z ESTRIL) 5 MG tablet 2022-0 9-15 00:00: 00 04-02 23:59 :00 No 5mg QD Take 1 tablet (5 mg total) by mouth daily. [facility] furosemide (LASIX) 20 MG tablet 2022-0 9-15 00:00: 00 04-02 23:59 :00 No 20mg QD Take 1 tablet (20 mg total) by mouth daily. [facility] DULoxetine (CYMBALTA) 30 MG capsule 2022-0 9-15 00:00: 00 04-02 23:59 :00 No 30mg QD Take 1 capsule (30 mg total) by mouth daily. [facility] lisinopriL (PRINIVIL,Z ESTRIL) 5 MG tablet 2022-0 9-15 00:00: 00 04-02 23:59 :00 No 5mg QD Take 1 tablet (5 mg total) by mouth daily. [facility] furosemide (LASIX) 20 MG tablet 2022-0 9-15 00:00: 00 04-02 23:59 :00 No 20mg QD Take 1 tablet (20 mg total) by mouth daily. [facility] DULoxetine (CYMBALTA) 30 MG capsule 2022-0 -15 00:00: 00 04-02 23:59 :00 No 30mg QD Take 1 capsule (30 mg total) by mouth daily. [facility] lisinopriL (PRINIVIL,Z ESTRIL) 5 MG tablet 2022-0 -15 00:00: 00 04-02 23:59 :00 No 5mg QD Take 1 tablet (5 mg total) by mouth daily. [facility] furosemide (LASIX) 20 MG tablet 2022-0 -15 00:00: 00 04-02 23:59 :00 No 20mg QD Take 1 tablet (20 mg total) by mouth daily. [facility] DULoxetine (CYMBALTA) 30 MG capsule 2022-0 9-15 00:00: 00 04-02 23:59 :00 No 30mg QD Take 1 capsule (30 mg total) by mouth daily. [facility] lisinopriL (PRINIVIL,Z ESTRIL) 5 MG tablet 2022-0 9-15 00:00: 00 04-02 23:59 :00 No 5mg QD Take 1 tablet (5 mg total) by mouth daily. [facility] furosemide (LASIX) 20 MG tablet 2022-0 9-15 00:00: 00 04-02 23:59 :00 No 20mg QD Take 1 tablet (20 mg total) by mouth daily. [facility] DULoxetine (CYMBALTA) 30 MG capsule 2022-0 9-15 00:00: 00 04-02 23:59 :00 No 30mg QD Take 1 capsule (30 mg total) by mouth daily. [facility] lisinopriL (PRINIVIL,Z ESTRIL) 5 MG tablet 2022-0 9-15 00:00: 00 04-02 23:59 :00 No 5mg QD Take 1 tablet (5 mg total) by mouth daily. [facility] furosemide (LASIX) 20 MG tablet 2022-0 9-15 00:00: 00 04-02 23:59 :00 No 20mg QD Take 1 tablet (20 mg total) by mouth daily. [facility] DULoxetine (CYMBALTA) 30 MG capsule 2022-0 9-15 00:00: 00 04-02 23:59 :00 No 30mg QD Take 1 capsule (30 mg total) by mouth daily. [facility] lisinopriL (PRINIVIL,Z ESTRIL) 5 MG tablet 2022-0 9-15 00:00: 00 04-02 23:59 :00 No 5mg QD Take 1 tablet (5 mg total) by mouth daily. [facility] furosemide (LASIX) 20 MG tablet 2022-0 9-15 00:00: 00 04-02 23:59 :00 No 20mg QD Take 1 tablet (20 mg total) by mouth daily. [facility] DULoxetine (CYMBALTA) 30 MG capsule 2022-0 9-15 00:00: 00 04-02 23:59 :00 No 30mg QD Take 1 capsule (30 mg total) by mouth daily. [facility] lisinopriL (PRINIVIL,Z ESTRIL) 5 MG tablet 2022-0 9-15 00:00: 00 04-02 23:59 :00 No 5mg QD Take 1 tablet (5 mg total) by mouth daily. [facility] furosemide (LASIX) 20 MG tablet 2022-0 9-15 00:00: 00 04-02 23:59 :00 No 20mg QD Take 1 tablet (20 mg total) by mouth daily. [facility] DULoxetine (CYMBALTA) 30 MG capsule 2022-0 9-15 00:00: 00 04-02 23:59 :00 No 30mg QD Take 1 capsule (30 mg total) by mouth daily. [facility] furosemide (LASIX) 20 MG tablet 2022-0 9-15 00:00: 00 04-02 23:59 :00 No 20mg QD Take 1 tablet (20 mg total) by mouth daily. [facility] DULoxetine (CYMBALTA) 30 MG capsule 2022-0 -15 00:00: 00 04-02 23:59 :00 No 30mg QD Take 1 capsule (30 mg total) by mouth daily. [facility] furosemide (LASIX) 20 MG tablet 2022-0 9-15 00:00: 00 04-02 23:59 :00 No 20mg QD Take 1 tablet (20 mg total) by mouth daily. [facility] DULoxetine (CYMBALTA) 30 MG capsule 2022-0 9-15 00:00: 00 04-02 23:59 :00 No 30mg QD Take 1 capsule (30 mg total) by mouth daily. [facility] furosemide (LASIX) 20 MG tablet 2022-0 9-15 00:00: 00 04-02 23:59 :00 No 20mg QD Take 1 tablet (20 mg total) by mouth daily. [facility] DULoxetine (CYMBALTA) 30 MG capsule 2022-0 9-15 00:00: 00 04-02 23:59 :00 No 30mg QD Take 1 capsule (30 mg total) by mouth daily. [facility] furosemide (LASIX) 20 MG tablet 2022-0 9-15 00:00: 00 04-02 23:59 :00 No 20mg QD Take 1 tablet (20 mg total) by mouth daily. [facility] furosemide (LASIX) 20 MG tablet 04-03 00:00: 00 04-02 23:59 :00 No 20mg QD Take 1 tablet (20 mg total) by mouth daily. [facility] furosemide (LASIX) 20 MG tablet 04-03 00:00: 00 04-02 23:59 :00 No 20mg QD Take 1 tablet (20 mg total) by mouth daily. [facility] aspirin 81 MG EC tablet 04-03 00:00: 00 07-02 23:59 :00 No 81mg QD Take 1 tablet (81 mg total) by mouth daily for 90 days. [facility] divalproex (DEPAKOTE) 500 MG EC tablet 04-03 00:00: 00 07-02 23:59 :00 No 500mg Q.5D Take 1 tablet (500 mg total) by mouth 2 (two) times daily for 90 days. [facility] gabapentin (NEURONTIN) 300 MG capsule 04-03 00:00: 00 07-02 23:59 :00 No 300mg Q.[id number] 3D Take 1 capsule (300 mg total) by mouth 3 (three) times daily for 90 days. [facility] aspirin 81 MG EC tablet 04-03 00:00: 00 07-02 23:59 :00 No 81mg QD Take 1 tablet (81 mg total) by mouth daily for 90 days. [facility] divalproex (DEPAKOTE) 500 MG EC tablet 04-03 00:00: 00 07-02 23:59 :00 No 500mg Q.5D Take 1 tablet (500 mg total) by mouth 2 (two) times daily for 90 days. [facility] gabapentin (NEURONTIN) 300 MG capsule 04-03 00:00: 00 07-02 23:59 :00 No 300mg Q.[id number] 3D Take 1 capsule (300 mg total) by mouth 3 (three) times daily for 90 days. [facility] aspirin 81 MG EC tablet 04-03 00:00: 00 07-02 23:59 :00 No 81mg QD Take 1 tablet (81 mg total) by mouth daily for 90 days. [facility] divalproex (DEPAKOTE) 500 MG EC tablet 04-03 00:00: 00 07-02 23:59 :00 No 500mg Q.5D Take 1 tablet (500 mg total) by mouth 2 (two) times daily for 90 days. [facility] gabapentin (NEURONTIN) 300 MG capsule 04-03 00:00: 00 07-02 23:59 :00 No 300mg Q.[id number] 3D Take 1 capsule (300 mg total) by mouth 3 (three) times daily for 90 days. [facility] aspirin 81 MG EC tablet 04-03 00:00: 00 07-02 23:59 :00 No 81mg QD Take 1 tablet (81 mg total) by mouth daily for 90 days. [facility] divalproex (DEPAKOTE) 500 MG EC tablet 04-03 00:00: 00 07-02 23:59 :00 No 500mg Q.5D Take 1 tablet (500 mg total) by mouth 2 (two) times daily for 90 days. [facility] gabapentin (NEURONTIN) 300 MG capsule 04-03 00:00: 00 07-02 23:59 :00 No 300mg Q.[id number] 3D Take 1 capsule (300 mg total) by mouth 3 (three) times daily for 90 days. [facility] aspirin 81 MG EC tablet 04-03 00:00: 00 07-02 23:59 :00 No 81mg QD Take 1 tablet (81 mg total) by mouth daily for 90 days. [facility] divalproex (DEPAKOTE) 500 MG EC tablet 04-03 00:00: 00 07-02 23:59 :00 No 500mg Q.5D Take 1 tablet (500 mg total) by mouth 2 (two) times daily for 90 days. [facility] gabapentin (NEURONTIN) 300 MG capsule 04-03 00:00: 00 07-02 23:59 :00 No 300mg Q.[id number] 3D Take 1 capsule (300 mg total) by mouth 3 (three) times daily for 90 days. [facility] aspirin 81 MG EC tablet 04-03 00:00: 00 07-02 23:59 :00 No 81mg QD Take 1 tablet (81 mg total) by mouth daily for 90 days. [facility] divalproex (DEPAKOTE) 500 MG EC tablet 04-03 00:00: 00 07-02 23:59 :00 No 500mg Q.5D Take 1 tablet (500 mg total) by mouth 2 (two) times daily for 90 days. [facility] gabapentin (NEURONTIN) 300 MG capsule 04-03 00:00: 00 07-02 23:59 :00 No 300mg Q.[id number] 3D Take 1 capsule (300 mg total) by mouth 3 (three) times daily for 90 days. [facility] aspirin 81 MG EC tablet 04-03 00:00: 00 07-02 23:59 :00 No 81mg QD Take 1 tablet (81 mg total) by mouth daily for 90 days. [facility] divalproex (DEPAKOTE) 500 MG EC tablet 04-03 00:00: 00 07-02 23:59 :00 No 500mg Q.5D Take 1 tablet (500 mg total) by mouth 2 (two) times daily for 90 days. [facility] gabapentin (NEURONTIN) 300 MG capsule 04-03 00:00: 00 07-02 23:59 :00 No 300mg Q.[id number] 3D Take 1 capsule (300 mg total) by mouth 3 (three) times daily for 90 days. [facility] aspirin 81 MG EC tablet 04-03 00:00: 00 07-02 23:59 :00 No 81mg QD Take 1 tablet (81 mg total) by mouth daily for 90 days. [facility] divalproex (DEPAKOTE) 500 MG EC tablet 04-03 00:00: 00 07-02 23:59 :00 No 500mg Q.5D Take 1 tablet (500 mg total) by mouth 2 (two) times daily for 90 days. [facility] gabapentin (NEURONTIN) 300 MG capsule 04-03 00:00: 00 07-02 23:59 :00 No 300mg Q.[id number] 3D Take 1 capsule (300 mg total) by mouth 3 (three) times daily for 90 days. [facility] aspirin 81 MG EC tablet 04-03 00:00: 00 07-02 23:59 :00 No 81mg QD Take 1 tablet (81 mg total) by mouth daily for 90 days. [facility] divalproex (DEPAKOTE) 500 MG EC tablet 04-03 00:00: 00 07-02 23:59 :00 No 500mg Q.5D Take 1 tablet (500 mg total) by mouth 2 (two) times daily for 90 days. [facility] gabapentin (NEURONTIN) 300 MG capsule 04-03 00:00: 00 07-02 23:59 :00 No 300mg Q.[id number] 3D Take 1 capsule (300 mg total) by mouth 3 (three) times daily for 90 days. [facility] aspirin 81 MG EC tablet 04-03 00:00: 00 07-02 23:59 :00 No 81mg QD Take 1 tablet (81 mg total) by mouth daily for 90 days. [facility] divalproex (DEPAKOTE) 500 MG EC tablet 04-03 00:00: 00 07-02 23:59 :00 No 500mg Q.5D Take 1 tablet (500 mg total) by mouth 2 (two) times daily for 90 days. [facility] gabapentin (NEURONTIN) 300 MG capsule 04-03 00:00: 00 07-02 23:59 :00 No 300mg Q.[id number] 3D Take 1 capsule (300 mg total) by mouth 3 (three) times daily for 90 days. [facility] aspirin 81 MG EC tablet 04-03 00:00: 00 07-02 23:59 :00 No 81mg QD Take 1 tablet (81 mg total) by mouth daily for 90 days. [facility] divalproex (DEPAKOTE) 500 MG EC tablet 04-03 00:00: 00 07-02 23:59 :00 No 500mg Q.5D Take 1 tablet (500 mg total) by mouth 2 (two) times daily for 90 days. [facility] gabapentin (NEURONTIN) 300 MG capsule 04-03 00:00: 00 07-02 23:59 :00 No 300mg Q.[id number] 3D Take 1 capsule (300 mg total) by mouth 3 (three) times daily for 90 days. [facility] aspirin 81 MG EC tablet 04-03 00:00: 00 07-02 23:59 :00 No 81mg QD Take 1 tablet (81 mg total) by mouth daily for 90 days. [facility] divalproex (DEPAKOTE) 500 MG EC tablet 04-03 00:00: 00 07-02 23:59 :00 No 500mg Q.5D Take 1 tablet (500 mg total) by mouth 2 (two) times daily for 90 days. [facility] gabapentin (NEURONTIN) 300 MG capsule 04-03 00:00: 00 07-02 23:59 :00 No 300mg Q.[id number] 3D Take 1 capsule (300 mg total) by mouth 3 (three) times daily for 90 days. [facility] aspirin 81 MG EC tablet 04-03 00:00: 00 07-02 23:59 :00 No 81mg QD Take 1 tablet (81 mg total) by mouth daily for 90 days. [facility] divalproex (DEPAKOTE) 500 MG EC tablet 04-03 00:00: 00 07-02 23:59 :00 No 500mg Q.5D Take 1 tablet (500 mg total) by mouth 2 (two) times daily for 90 days. [facility] gabapentin (NEURONTIN) 300 MG capsule 04-03 00:00: 00 07-02 23:59 :00 No 300mg Q.[id number] 3D Take 1 capsule (300 mg total) by mouth 3 (three) times daily for 90 days. [facility] aspirin 81 MG EC tablet 04-03 00:00: 00 07-02 23:59 :00 No 81mg QD Take 1 tablet (81 mg total) by mouth daily for 90 days. [facility] divalproex (DEPAKOTE) 500 MG EC tablet 04-03 00:00: 00 07-02 23:59 :00 No 500mg Q.5D Take 1 tablet (500 mg total) by mouth 2 (two) times daily for 90 days. [facility] gabapentin (NEURONTIN) 300 MG capsule 04-03 00:00: 00 07-02 23:59 :00 No 300mg Q.[id number] 3D Take 1 capsule (300 mg total) by mouth 3 (three) times daily for 90 days. [facility] aspirin 81 MG EC tablet 04-03 00:00: 00 07-02 23:59 :00 No 81mg QD Take 1 tablet (81 mg total) by mouth daily for 90 days. [facility] divalproex (DEPAKOTE) 500 MG EC tablet 04-03 00:00: 00 07-02 23:59 :00 No 500mg Q.5D Take 1 tablet (500 mg total) by mouth 2 (two) times daily for 90 days. [facility] gabapentin (NEURONTIN) 300 MG capsule 04-03 00:00: 00 07-02 23:59 :00 No 300mg Q.[id number] 3D Take 1 capsule (300 mg total) by mouth 3 (three) times daily for 90 days. [facility] aspirin 81 MG EC tablet 04-03 00:00: 00 07-02 23:59 :00 No 81mg QD Take 1 tablet (81 mg total) by mouth daily for 90 days. [facility] divalproex (DEPAKOTE) 500 MG EC tablet 04-03 00:00: 00 07-02 23:59 :00 No 500mg Q.5D Take 1 tablet (500 mg total) by mouth 2 (two) times daily for 90 days. [facility] gabapentin (NEURONTIN) 300 MG capsule 04-03 00:00: 00 07-02 23:59 :00 No 300mg Q.[id number] 3D Take 1 capsule (300 mg total) by mouth 3 (three) times daily for 90 days. [facility] aspirin 81 MG EC tablet 04-03 00:00: 00 07-02 23:59 :00 No 81mg QD Take 1 tablet (81 mg total) by mouth daily for 90 days. [facility] divalproex (DEPAKOTE) 500 MG EC tablet 04-03 00:00: 00 07-02 23:59 :00 No 500mg Q.5D Take 1 tablet (500 mg total) by mouth 2 (two) times daily for 90 days. [facility] gabapentin (NEURONTIN) 300 MG capsule 04-03 00:00: 00 07-02 23:59 :00 No 300mg Q.[id number] 3D Take 1 capsule (300 mg total) by mouth 3 (three) times daily for 90 days. [facility] aspirin 81 MG EC tablet 04-03 00:00: 00 07-02 23:59 :00 No 81mg QD Take 1 tablet (81 mg total) by mouth daily for 90 days. [facility] divalproex (DEPAKOTE) 500 MG EC tablet 04-03 00:00: 00 07-02 23:59 :00 No 500mg Q.5D Take 1 tablet (500 mg total) by mouth 2 (two) times daily for 90 days. [facility] gabapentin (NEURONTIN) 300 MG capsule 04-03 00:00: 00 07-02 23:59 :00 No 300mg Q.[id number] 3D Take 1 capsule (300 mg total) by mouth 3 (three) times daily for 90 days. [facility] aspirin 81 MG EC tablet 04-03 00:00: 00 07-02 23:59 :00 No 81mg QD Take 1 tablet (81 mg total) by mouth daily for 90 days. [facility] divalproex (DEPAKOTE) 500 MG EC tablet 04-03 00:00: 00 07-02 23:59 :00 No 500mg Q.5D Take 1 tablet (500 mg total) by mouth 2 (two) times daily for 90 days. [facility] gabapentin (NEURONTIN) 300 MG capsule 04-03 00:00: 00 07-02 23:59 :00 No 300mg Q.[id number] 3D Take 1 capsule (300 mg total) by mouth 3 (three) times daily for 90 days. [facility] aspirin 81 MG EC tablet 04-03 00:00: 00 07-02 23:59 :00 No 81mg QD Take 1 tablet (81 mg total) by mouth daily for 90 days. [facility] divalproex (DEPAKOTE) 500 MG EC tablet 04-03 00:00: 00 07-02 23:59 :00 No 500mg Q.5D Take 1 tablet (500 mg total) by mouth 2 (two) times daily for 90 days. [facility] gabapentin (NEURONTIN) 300 MG capsule 04-03 00:00: 00 07-02 23:59 :00 No 300mg Q.[id number] 3D Take 1 capsule (300 mg total) by mouth 3 (three) times daily for 90 days. [facility] aspirin 81 MG EC tablet 04-03 00:00: 00 07-02 23:59 :00 No 81mg QD Take 1 tablet (81 mg total) by mouth daily for 90 days. [facility] divalproex (DEPAKOTE) 500 MG EC tablet 04-03 00:00: 00 07-02 23:59 :00 No 500mg Q.5D Take 1 tablet (500 mg total) by mouth 2 (two) times daily for 90 days. [facility] gabapentin (NEURONTIN) 300 MG capsule 04-03 00:00: 00 07-02 23:59 :00 No 300mg Q.[id number] 3D Take 1 capsule (300 mg total) by mouth 3 (three) times daily for 90 days. [facility] aspirin 81 MG EC tablet 04-03 00:00: 00 07-02 23:59 :00 No 81mg QD Take 1 tablet (81 mg total) by mouth daily for 90 days. [facility] divalproex (DEPAKOTE) 500 MG EC tablet 04-03 00:00: 00 07-02 23:59 :00 No 500mg Q.5D Take 1 tablet (500 mg total) by mouth 2 (two) times daily for 90 days. [facility] gabapentin (NEURONTIN) 300 MG capsule 04-03 00:00: 00 07-02 23:59 :00 No 300mg Q.[id number] 3D Take 1 capsule (300 mg total) by mouth 3 (three) times daily for 90 days. [facility] aspirin 81 MG EC tablet 04-03 00:00: 00 07-02 23:59 :00 No 81mg QD Take 1 tablet (81 mg total) by mouth daily for 90 days. [facility] divalproex (DEPAKOTE) 500 MG EC tablet 04-03 00:00: 00 07-02 23:59 :00 No 500mg Q.5D Take 1 tablet (500 mg total) by mouth 2 (two) times daily for 90 days. [facility] gabapentin (NEURONTIN) 300 MG capsule 15 00:00: 00 07-02 23:59 :00 No 300mg Q.[id number] 3D Take 1 capsule (300 mg total) by mouth 3 (three) times daily for 90 days. [facility] aspirin 81 MG EC tablet 04-03 00:00: 00 07-02 23:59 :00 No 81mg QD Take 1 tablet (81 mg total) by mouth daily for 90 days. [facility] divalproex (DEPAKOTE) 500 MG EC tablet 04-03 00:00: 00 07-02 23:59 :00 No 500mg Q.5D Take 1 tablet (500 mg total) by mouth 2 (two) times daily for 90 days. [facility] gabapentin (NEURONTIN) 300 MG capsule 04-03 00:00: 00 07-02 23:59 :00 No 300mg [id number] 3D Take 1 capsule (300 mg total) by mouth 3 (three) times daily for 90 days. [facility] aspirin 81 MG EC tablet 04-03 00:00: 00 07-02 23:59 :00 No 81mg QD Take 1 tablet (81 mg total) by mouth daily for 90 days. [facility] divalproex (DEPAKOTE) 500 MG EC tablet 04-03 00:00: 00 07-02 23:59 :00 No 500mg Q.5D Take 1 tablet (500 mg total) by mouth 2 (two) times daily for 90 days. [facility] gabapentin (NEURONTIN) 300 MG capsule 04-03 00:00: 00 07-02 23:59 :00 No 300mg [id number] 3D Take 1 capsule (300 mg total) by mouth 3 (three) times daily for 90 days. [facility] aspirin 81 MG EC tablet 04-03 00:00: 00 07-02 23:59 :00 No 81mg QD Take 1 tablet (81 mg total) by mouth daily for 90 days. [facility] divalproex (DEPAKOTE) 500 MG EC tablet 15 00:00: 00 07-02 23:59 :00 No 500mg Q.5D Take 1 tablet (500 mg total) by mouth 2 (two) times daily for 90 days. [facility] gabapentin (NEURONTIN) 300 MG capsule 15 00:00: 00 07-02 23:59 :00 No 300mg [id number] 3D Take 1 capsule (300 mg total) by mouth 3 (three) times daily for 90 days. [facility] aspirin 81 MG EC tablet 04-03 00:00: 00 07-02 23:59 :00 No 81mg QD Take 1 tablet (81 mg total) by mouth daily for 90 days. [facility] divalproex (DEPAKOTE) 500 MG EC tablet 04-03 00:00: 00 07-02 23:59 :00 No 500mg Q.5D Take 1 tablet (500 mg total) by mouth 2 (two) times daily for 90 days. [facility] gabapentin (NEURONTIN) 300 MG capsule 04-03 00:00: 00 07-02 23:59 :00 No 300mg [id number] 3D Take 1 capsule (300 mg total) by mouth 3 (three) times daily for 90 days. [facility] DULoxetine (CYMBALTA) 30 MG capsule -15 00:00: 00 06-16 00:00 :00 No 30mg QD Take 1 capsule (30 mg total) by mouth daily. [facility] DULoxetine (CYMBALTA) 30 MG capsule -15 00:00: 00 06-16 00:00 :00 No 30mg QD Take 1 capsule (30 mg total) by mouth daily. [facility] DULoxetine (CYMBALTA) 30 MG capsule 2022-0 -15 00:00: 00 06-16 00:00 :00 No 30mg QD Take 1 capsule (30 mg total) by mouth daily. [facility] DULoxetine (CYMBALTA) 30 MG capsule 3-0 9-15 00:00: 00 06-16 00:00 :00 No 30mg QD Take 1 capsule (30 mg total) by mouth daily. [facility] DULoxetine (CYMBALTA) 30 MG capsule 2022-0 9-15 00:00: 00 06-16 00:00 :00 No 30mg QD Take 1 capsule (30 mg total) by mouth daily. [facility] DULoxetine (CYMBALTA) 30 MG capsule 2022-0 9-15 00:00: 00 06-16 00:00 :00 No 30mg QD Take 1 capsule (30 mg total) by mouth daily. [facility] DULoxetine (CYMBALTA) 30 MG capsule 2022-0 9-15 00:00: 00 06-16 00:00 :00 No 30mg QD Take 1 capsule (30 mg total) by mouth daily. [facility] DULoxetine (CYMBALTA) 30 MG capsule 2022-0 9-15 00:00: 00 06-16 00:00 :00 No 30mg QD Take 1 capsule (30 mg total) by mouth daily. [facility] DULoxetine (CYMBALTA) 30 MG capsule 2022-0 9-15 00:00: 00 06-16 00:00 :00 No 30mg QD Take 1 capsule (30 mg total) by mouth daily. [facility] DULoxetine (CYMBALTA) 30 MG capsule 2022-0 9-15 00:00: 00 06-16 00:00 :00 No 30mg QD Take 1 capsule (30 mg total) by mouth daily. [facility] DULoxetine (CYMBALTA) 30 MG capsule 2022-0 9-15 00:00: 00 06-16 00:00 :00 No 30mg QD Take 1 capsule (30 mg total) by mouth daily. [facility] DULoxetine (CYMBALTA) 30 MG capsule 2022-0 9-15 00:00: 00 06-16 00:00 :00 No 30mg QD Take 1 capsule (30 mg total) by mouth daily. [facility] DULoxetine (CYMBALTA) 30 MG capsule 2022-0 9-15 00:00: 00 06-16 00:00 :00 No 30mg QD Take 1 capsule (30 mg total) by mouth daily. [facility] DULoxetine (CYMBALTA) 30 MG capsule 2022-0 9-15 00:00: 00 06-16 00:00 :00 No 30mg QD Take 1 capsule (30 mg total) by mouth daily. [facility] lisinopriL (PRINIVIL,Z ESTRIL) 5 MG tablet 0 9-15 00:00: 00 05-28 00:00 :00 No 5mg QD Take 1 tablet (5 mg total) by mouth daily. [facility] lisinopriL (PRINIVIL,Z ESTRIL) 5 MG tablet 0 9-15 00:00: 00 05-28 00:00 :00 No 5mg QD Take 1 tablet (5 mg total) by mouth daily. [facility] lisinopriL (PRINIVIL,Z ESTRIL) 5 MG tablet 2022-0 9-15 00:00: 00 05-28 00:00 :00 No 5mg QD Take 1 tablet (5 mg total) by mouth daily. [facility] lisinopriL (PRINIVIL,Z ESTRIL) 5 MG tablet 2022-0 9-15 00:00: 00 05-28 00:00 :00 No 5mg QD Take 1 tablet (5 mg total) by mouth daily. [facility] lisinopriL (PRINIVIL,Z ESTRIL) 5 MG tablet 2022-0 9-15 00:00: 00 05-28 00:00 :00 No 5mg QD Take 1 tablet (5 mg total) by mouth daily. [facility] lisinopriL (PRINIVIL,Z ESTRIL) 5 MG tablet 2022-0 9-15 00:00: 00 05-28 00:00 :00 No 5mg QD Take 1 tablet (5 mg total) by mouth daily. [facility] lisinopriL (PRINIVIL,Z ESTRIL) 5 MG tablet 2022-0 9-15 00:00: 00 05-28 00:00 :00 No 5mg QD Take 1 tablet (5 mg total) by mouth daily. [facility] lisinopriL (PRINIVIL,Z ESTRIL) 5 MG tablet 2022-0 9-15 00:00: 00 05-28 00:00 :00 No 5mg QD Take 1 tablet (5 mg total) by mouth daily. [facility] lisinopriL (PRINIVIL,Z ESTRIL) 5 MG tablet 2022-0 9-15 00:00: 00 05-28 00:00 :00 No 5mg QD Take 1 tablet (5 mg total) by mouth daily. [facility] lisinopriL (PRINIVIL,Z ESTRIL) 5 MG tablet 2022-0 9-15 00:00: 00 05-28 00:00 :00 No 5mg QD Take 1 tablet (5 mg total) by mouth daily. [facility] lisinopriL (PRINIVIL,Z ESTRIL) 5 MG tablet 2022-0 9-15 00:00: 00 05-28 00:00 :00 No 5mg QD Take 1 tablet (5 mg total) by mouth daily. [facility] lisinopriL (PRINIVIL,Z ESTRIL) 5 MG tablet 2022-0 9-15 00:00: 00 05-28 00:00 :00 No 5mg QD Take 1 tablet (5 mg total) by mouth daily. [facility] lisinopriL (PRINIVIL,Z ESTRIL) 5 MG tablet 2022-0 9-15 00:00: 00 05-28 00:00 :00 No 5mg QD Take 1 tablet (5 mg total) by mouth daily. [facility] lisinopriL (PRINIVIL,Z ESTRIL) 5 MG tablet 2022-0 9-15 00:00: 00 05-28 00:00 :00 No 5mg QD Take 1 tablet (5 mg total) by mouth daily. [facility] lisinopriL (PRINIVIL,Z ESTRIL) 5 MG tablet 2022-0 9-15 00:00: 00 2023- 11-09 00:00 :00 No 5mg QD Take 1 tablet (5 mg total) by mouth daily. [facility] lisinopriL (PRINIVIL,Z ESTRIL) 5 MG tablet 04-03 00:00: 00 05-28 00:00 :00 No 5mg QD Take 1 tablet (5 mg total) by mouth daily. [facility] lisinopriL (PRINIVIL,Z ESTRIL) 5 MG tablet 04-03 00:00: 00 05-28 00:00 :00 No 5mg QD Take 1 tablet (5 mg total) by mouth daily. [facility] lisinopriL (PRINIVIL,Z ESTRIL) 5 MG tablet 04-03 00:00: 00 05-28 00:00 :00 No 5mg QD Take 1 tablet (5 mg total) by mouth daily. [facility] clonazePAM (KlonoPIN) 0.5 MG tablet 04-03 00:00: 00 05-03 23:59 :00 No .25mg Take 0.5 tablets (0.25 mg total) by mouth 2 (two) times daily as needed for Anxiety for up to 30 days. Max Daily Amount: 0.5 mg [facility] clonazePAM (KlonoPIN) 0.5 MG tablet 04-03 00:00: 00 05-03 23:59 :00 No .25mg Take 0.5 tablets (0.25 mg total) by mouth 2 (two) times daily as needed for Anxiety for up to 30 days. Max Daily Amount: 0.5 mg [facility] clonazePAM (KlonoPIN) 0.5 MG tablet 04-03 00:00: 00 05-03 23:59 :00 No .25mg Take 0.5 tablets (0.25 mg total) by mouth 2 (two) times daily as needed for Anxiety for up to 30 days. Max Daily Amount: 0.5 mg [facility] clonazePAM (KlonoPIN) 0.5 MG tablet 04-03 00:00: 00 05-03 23:59 :00 No .25mg Take 0.5 tablets (0.25 mg total) by mouth 2 (two) times daily as needed for Anxiety for up to 30 days. Max Daily Amount: 0.5 mg [facility] clonazePAM (KlonoPIN) 0.5 MG tablet 04-03 00:00: 00 05-03 23:59 :00 No .25mg Take 0.5 tablets (0.25 mg total) by mouth 2 (two) times daily as needed for Anxiety for up to 30 days. Max Daily Amount: 0.5 mg [facility] clonazePAM (KlonoPIN) 0.5 MG tablet 04-03 00:00: 00 05-03 23:59 :00 No .25mg Take 0.5 tablets (0.25 mg total) by mouth 2 (two) times daily as needed for Anxiety for up to 30 days. Max Daily Amount: 0.5 mg [facility] clonazePAM (KlonoPIN) 0.5 MG tablet 04-03 00:00: 00 05-03 23:59 :00 No .25mg Take 0.5 tablets (0.25 mg total) by mouth 2 (two) times daily as needed for Anxiety for up to 30 days. Max Daily Amount: 0.5 mg [facility] clonazePAM (KlonoPIN) 0.5 MG tablet 04-03 00:00: 00 05-03 23:59 :00 No .25mg Take 0.5 tablets (0.25 mg total) by mouth 2 (two) times daily as needed for Anxiety for up to 30 days. Max Daily Amount: 0.5 mg [facility] clonazePAM (KlonoPIN) 0.5 MG tablet 0 04-03 00:00: 00 05-03 23:59 :00 No .25mg Take 0.5 tablets (0.25 mg total) by mouth 2 (two) times daily as needed for Anxiety for up to 30 days. Max Daily Amount: 0.5 mg [facility] clonazePAM (KlonoPIN) 0.5 MG tablet 0 04-03 00:00: 00 05-03 23:59 :00 No .25mg Take 0.5 tablets (0.25 mg total) by mouth 2 (two) times daily as needed for Anxiety for up to 30 days. Max Daily Amount: 0.5 mg [facility] clonazePAM (KlonoPIN) 0.5 MG tablet 0 04-03 00:00: 00 05-03 23:59 :00 No .25mg Take 0.5 tablets (0.25 mg total) by mouth 2 (two) times daily as needed for Anxiety for up to 30 days. Max Daily Amount: 0.5 mg [facility] clonazePAM (KlonoPIN) 0.5 MG tablet 04-03 00:00: 00 05-03 23:59 :00 No .25mg Take 0.5 tablets (0.25 mg total) by mouth 2 (two) times daily as needed for Anxiety for up to 30 days. Max Daily Amount: 0.5 mg [facility] clonazePAM (KlonoPIN) 0.5 MG tablet 04-03 00:00: 00 05-03 23:59 :00 No .25mg Take 0.5 tablets (0.25 mg total) by mouth 2 (two) times daily as needed for Anxiety for up to 30 days. Max Daily Amount: 0.5 mg [facility] clonazePAM (KlonoPIN) 0.5 MG tablet 04-03 00:00: 00 05-03 23:59 :00 No .25mg Take 0.5 tablets (0.25 mg total) by mouth 2 (two) times daily as needed for Anxiety for up to 30 days. Max Daily Amount: 0.5 mg [facility] clonazePAM (KlonoPIN) 0.5 MG tablet 2022-0 15 00:00: 00 05-03 23:59 :00 No .25mg Take 0.5 tablets (0.25 mg total) by mouth 2 (two) times daily as needed for Anxiety for up to 30 days. Max Daily Amount: 0.5 mg [facility] clonazePAM (KlonoPIN) 0.5 MG tablet 2022-0 15 00:00: 00 05-03 23:59 :00 No .25mg Take 0.5 tablets (0.25 mg total) by mouth 2 (two) times daily as needed for Anxiety for up to 30 days. Max Daily Amount: 0.5 mg [facility] clonazePAM (KlonoPIN) 0.5 MG tablet 15 00:00: 00 05-03 23:59 :00 No .25mg Take 0.5 tablets (0.25 mg total) by mouth 2 (two) times daily as needed for Anxiety for up to 30 days. Max Daily Amount: 0.5 mg [facility] clonazePAM (KlonoPIN) 0.5 MG tablet 0 15 00:00: 00 05-03 23:59 :00 No .25mg Take 0.5 tablets (0.25 mg total) by mouth 2 (two) times daily as needed for Anxiety for up to 30 days. Max Daily Amount: 0.5 mg [facility] clonazePAM (KlonoPIN) 0.5 MG tablet 0 04-03 00:00: 00 05-03 23:59 :00 No .25mg Take 0.5 tablets (0.25 mg total) by mouth 2 (two) times daily as needed for Anxiety for up to 30 days. Max Daily Amount: 0.5 mg [facility] clonazePAM (KlonoPIN) 0.5 MG tablet 0 04-03 00:00: 00 05-03 23:59 :00 No .25mg Take 0.5 tablets (0.25 mg total) by mouth 2 (two) times daily as needed for Anxiety for up to 30 days. Max Daily Amount: 0.5 mg [facility] clonazePAM (KlonoPIN) 0.5 MG tablet 2022-0 15 00:00: 00 05-03 23:59 :00 No .25mg Take 0.5 tablets (0.25 mg total) by mouth 2 (two) times daily as needed for Anxiety for up to 30 days. Max Daily Amount: 0.5 mg [facility] clonazePAM (KlonoPIN) 0.5 MG tablet 2022-0 15 00:00: 00 05-03 23:59 :00 No .25mg Take 0.5 tablets (0.25 mg total) by mouth 2 (two) times daily as needed for Anxiety for up to 30 days. Max Daily Amount: 0.5 mg [facility] clonazePAM (KlonoPIN) 0.5 MG tablet 04-03 00:00: 00 05-03 23:59 :00 No .25mg Take 0.5 tablets (0.25 mg total) by mouth 2 (two) times daily as needed for Anxiety for up to 30 days. Max Daily Amount: 0.5 mg [facility] clonazePAM (KlonoPIN) 0.5 MG tablet 04-03 00:00: 00 05-03 23:59 :00 No .25mg Take 0.5 tablets (0.25 mg total) by mouth 2 (two) times daily as needed for Anxiety for up to 30 days. Max Daily Amount: 0.5 mg [facility] clonazePAM (KlonoPIN) 0.5 MG tablet 04-03 00:00: 00 05-03 23:59 :00 No .25mg Take 0.5 tablets (0.25 mg total) by mouth 2 (two) times daily as needed for Anxiety for up to 30 days. Max Daily Amount: 0.5 mg [facility] clonazePAM (KlonoPIN) 0.5 MG tablet 04-03 00:00: 00 05-03 23:59 :00 No .25mg Take 0.5 tablets (0.25 mg total) by mouth 2 (two) times daily as needed for Anxiety for up to 30 days. Max Daily Amount: 0.5 mg [facility] clonazePAM (KlonoPIN) 0.5 MG tablet 04-03 00:00: 00 05-03 23:59 :00 No .25mg Take 0.5 tablets (0.25 mg total) by mouth 2 (two) times daily as needed for Anxiety for up to 30 days. Max Daily Amount: 0.5 mg [facility] HYDROcodone -acetaminop hen (NORCO 10-325) 10-325 mg per tablet 04-03 00:00: 00 04-13 23:59 :00 No 1{tbl} Take 1 tablet by mouth every 6 (six) hours as needed for up to 10 days. Max Daily Amount: 4 tablets [facility] methocarbam oL (ROBAXIN) 500 MG tablet 04-03 00:00: 00 04-13 23:59 :00 No 500mg Q.25D Take 1 tablet (500 mg total) by mouth 4 (four) times daily for 10 days. [facility] HYDROcodone -acetaminop hen (NORCO 10-325) 10-325 mg per tablet 04-03 00:00: 00 04-13 23:59 :00 No 1{tbl} Take 1 tablet by mouth every 6 (six) hours as needed for up to 10 days. Max Daily Amount: 4 tablets [facility] methocarbam oL (ROBAXIN) 500 MG tablet 04-03 00:00: 00 04-13 23:59 :00 No 500mg Q.25D Take 1 tablet (500 mg total) by mouth 4 (four) times daily for 10 days. [facility] HYDROcodone -acetaminop hen (NORCO 10-325) 10-325 mg per tablet 04-03 00:00: 00 04-13 23:59 :00 No 1{tbl} Take 1 tablet by mouth every 6 (six) hours as needed for up to 10 days. Max Daily Amount: 4 tablets [facility] methocarbam oL (ROBAXIN) 500 MG tablet 04-03 00:00: 00 04-13 23:59 :00 No 500mg Q.25D Take 1 tablet (500 mg total) by mouth 4 (four) times daily for 10 days. [facility] HYDROcodone -acetaminop hen (NORCO 10-325) 10-325 mg per tablet 04-03 00:00: 00 04-13 23:59 :00 No 1{tbl} Take 1 tablet by mouth every 6 (six) hours as needed for up to 10 days. Max Daily Amount: 4 tablets [facility] methocarbam oL (ROBAXIN) 500 MG tablet 04-03 00:00: 00 04-13 23:59 :00 No 500mg Q.25D Take 1 tablet (500 mg total) by mouth 4 (four) times daily for 10 days. [facility] HYDROcodone -acetaminop hen (NORCO 10-325) 10-325 mg per tablet 04-03 00:00: 00 04-13 23:59 :00 No 1{tbl} Take 1 tablet by mouth every 6 (six) hours as needed for up to 10 days. Max Daily Amount: 4 tablets [facility] methocarbam oL (ROBAXIN) 500 MG tablet 04-03 00:00: 00 04-13 23:59 :00 No 500mg Q.25D Take 1 tablet (500 mg total) by mouth 4 (four) times daily for 10 days. [facility] HYDROcodone -acetaminop hen (NORCO 10-325) 10-325 mg per tablet 04-03 00:00: 00 04-13 23:59 :00 No 1{tbl} Take 1 tablet by mouth every 6 (six) hours as needed for up to 10 days. Max Daily Amount: 4 tablets [facility] methocarbam oL (ROBAXIN) 500 MG tablet 04-03 00:00: 00 04-13 23:59 :00 No 500mg Q.25D Take 1 tablet (500 mg total) by mouth 4 (four) times daily for 10 days. [facility] HYDROcodone -acetaminop hen (NORCO 10-325) 10-325 mg per tablet 04-03 00:00: 00 04-13 23:59 :00 No 1{tbl} Take 1 tablet by mouth every 6 (six) hours as needed for up to 10 days. Max Daily Amount: 4 tablets [facility] methocarbam oL (ROBAXIN) 500 MG tablet 04-03 00:00: 00 04-13 23:59 :00 No 500mg Q.25D Take 1 tablet (500 mg total) by mouth 4 (four) times daily for 10 days. [facility] HYDROcodone -acetaminop hen (NORCO 10-325) 10-325 mg per tablet 04-03 00:00: 00 04-13 23:59 :00 No 1{tbl} Take 1 tablet by mouth every 6 (six) hours as needed for up to 10 days. Max Daily Amount: 4 tablets [facility] methocarbam oL (ROBAXIN) 500 MG tablet 04-03 00:00: 00 04-13 23:59 :00 No 500mg Q.25D Take 1 tablet (500 mg total) by mouth 4 (four) times daily for 10 days. [facility] HYDROcodone -acetaminop hen (NORCO 10-325) 10-325 mg per tablet 04-03 00:00: 00 04-13 23:59 :00 No 1{tbl} Take 1 tablet by mouth every 6 (six) hours as needed for up to 10 days. Max Daily Amount: 4 tablets [facility] methocarbam oL (ROBAXIN) 500 MG tablet 04-03 00:00: 00 04-13 23:59 :00 No 500mg Q.25D Take 1 tablet (500 mg total) by mouth 4 (four) times daily for 10 days. [facility] HYDROcodone -acetaminop hen (NORCO 10-325) 10-325 mg per tablet 04-03 00:00: 00 04-13 23:59 :00 No 1{tbl} Take 1 tablet by mouth every 6 (six) hours as needed for up to 10 days. Max Daily Amount: 4 tablets [facility] methocarbam oL (ROBAXIN) 500 MG tablet 04-03 00:00: 00 04-13 23:59 :00 No 500mg Q.25D Take 1 tablet (500 mg total) by mouth 4 (four) times daily for 10 days. [facility] HYDROcodone -acetaminop hen (NORCO 10-325) 10-325 mg per tablet 04-03 00:00: 00 04-13 23:59 :00 No 1{tbl} Take 1 tablet by mouth every 6 (six) hours as needed for up to 10 days. Max Daily Amount: 4 tablets [facility] methocarbam oL (ROBAXIN) 500 MG tablet 15 00:00: 00 04-13 23:59 :00 No 500mg Q.25D Take 1 tablet (500 mg total) by mouth 4 (four) times daily for 10 days. [facility] HYDROcodone -acetaminop hen (NORCO 10-325) 10-325 mg per tablet 04-03 00:00: 00 04-13 23:59 :00 No 1{tbl} Take 1 tablet by mouth every 6 (six) hours as needed for up to 10 days. Max Daily Amount: 4 tablets [facility] methocarbam oL (ROBAXIN) 500 MG tablet 04-03 00:00: 00 04-13 23:59 :00 No 500mg Q.25D Take 1 tablet (500 mg total) by mouth 4 (four) times daily for 10 days. [facility] HYDROcodone -acetaminop hen (NORCO 10-325) 10-325 mg per tablet 04-03 00:00: 00 04-13 23:59 :00 No 1{tbl} Take 1 tablet by mouth every 6 (six) hours as needed for up to 10 days. Max Daily Amount: 4 tablets [facility] methocarbam oL (ROBAXIN) 500 MG tablet 04-03 00:00: 00 04-13 23:59 :00 No 500mg Q.25D Take 1 tablet (500 mg total) by mouth 4 (four) times daily for 10 days. [facility] HYDROcodone -acetaminop hen (NORCO 10-325) 10-325 mg per tablet 15 00:00: 00 04-13 23:59 :00 No 1{tbl} Take 1 tablet by mouth every 6 (six) hours as needed for up to 10 days. Max Daily Amount: 4 tablets [facility] methocarbam oL (ROBAXIN) 500 MG tablet 15 00:00: 00 04-13 23:59 :00 No 500mg Q.25D Take 1 tablet (500 mg total) by mouth 4 (four) times daily for 10 days. [facility] HYDROcodone -acetaminop hen (NORCO 10-325) 10-325 mg per tablet 04-03 00:00: 00 04-13 23:59 :00 No 1{tbl} Take 1 tablet by mouth every 6 (six) hours as needed for up to 10 days. Max Daily Amount: 4 tablets [facility] methocarbam oL (ROBAXIN) 500 MG tablet 04-03 00:00: 00 04-13 23:59 :00 No 500mg Q.25D Take 1 tablet (500 mg total) by mouth 4 (four) times daily for 10 days. [facility] HYDROcodone -acetaminop hen (NORCO 10-325) 10-325 mg per tablet 04-03 00:00: 00 04-13 23:59 :00 No 1{tbl} Take 1 tablet by mouth every 6 (six) hours as needed for up to 10 days. Max Daily Amount: 4 tablets [facility] methocarbam oL (ROBAXIN) 500 MG tablet 04-03 00:00: 00 04-13 23:59 :00 No 500mg Q.25D Take 1 tablet (500 mg total) by mouth 4 (four) times daily for 10 days. [facility] HYDROcodone -acetaminop hen (NORCO 10-325) 10-325 mg per tablet 04-03 00:00: 00 04-13 23:59 :00 No 1{tbl} Take 1 tablet by mouth every 6 (six) hours as needed for up to 10 days. Max Daily Amount: 4 tablets [facility] methocarbam oL (ROBAXIN) 500 MG tablet 04-03 00:00: 00 04-13 23:59 :00 No 500mg Q.25D Take 1 tablet (500 mg total) by mouth 4 (four) times daily for 10 days. [facility] HYDROcodone -acetaminop hen (NORCO 10-325) 10-325 mg per tablet 04-03 00:00: 00 04-13 23:59 :00 No 1{tbl} Take 1 tablet by mouth every 6 (six) hours as needed for up to 10 days. Max Daily Amount: 4 tablets [facility] methocarbam oL (ROBAXIN) 500 MG tablet 04-03 00:00: 00 04-13 23:59 :00 No 500mg Q.25D Take 1 tablet (500 mg total) by mouth 4 (four) times daily for 10 days. [facility] HYDROcodone -acetaminop hen (NORCO 10-325) 10-325 mg per tablet 04-03 00:00: 00 04-13 23:59 :00 No 1{tbl} Take 1 tablet by mouth every 6 (six) hours as needed for up to 10 days. Max Daily Amount: 4 tablets [facility] methocarbam oL (ROBAXIN) 500 MG tablet 04-03 00:00: 00 04-13 23:59 :00 No 500mg Q.25D Take 1 tablet (500 mg total) by mouth 4 (four) times daily for 10 days. [facility] HYDROcodone -acetaminop hen (NORCO 10-325) 10-325 mg per tablet 04-03 00:00: 00 04-13 23:59 :00 No 1{tbl} Take 1 tablet by mouth every 6 (six) hours as needed for up to 10 days. Max Daily Amount: 4 tablets [facility] methocarbam oL (ROBAXIN) 500 MG tablet 04-03 00:00: 00 04-13 23:59 :00 No 500mg Q.25D Take 1 tablet (500 mg total) by mouth 4 (four) times daily for 10 days. [facility] HYDROcodone -acetaminop hen (NORCO 10-325) 10-325 mg per tablet 04-03 00:00: 00 04-13 23:59 :00 No 1{tbl} Take 1 tablet by mouth every 6 (six) hours as needed for up to 10 days. Max Daily Amount: 4 tablets [facility] methocarbam oL (ROBAXIN) 500 MG tablet 04-03 00:00: 00 04-13 23:59 :00 No 500mg Q.25D Take 1 tablet (500 mg total) by mouth 4 (four) times daily for 10 days. [facility] HYDROcodone -acetaminop hen (NORCO 10-325) 10-325 mg per tablet 04-03 00:00: 00 04-13 23:59 :00 No 1{tbl} Take 1 tablet by mouth every 6 (six) hours as needed for up to 10 days. Max Daily Amount: 4 tablets [facility] methocarbam oL (ROBAXIN) 500 MG tablet 04-03 00:00: 00 04-13 23:59 :00 No 500mg Q.25D Take 1 tablet (500 mg total) by mouth 4 (four) times daily for 10 days. [facility] HYDROcodone -acetaminop hen (NORCO 10-325) 10-325 mg per tablet 04-03 00:00: 00 04-13 23:59 :00 No 1{tbl} Take 1 tablet by mouth every 6 (six) hours as needed for up to 10 days. Max Daily Amount: 4 tablets [facility] methocarbam oL (ROBAXIN) 500 MG tablet 04-03 00:00: 00 04-13 23:59 :00 No 500mg Q.25D Take 1 tablet (500 mg total) by mouth 4 (four) times daily for 10 days. [facility] HYDROcodone -acetaminop hen (NORCO 10-325) 10-325 mg per tablet 04-03 00:00: 00 04-13 23:59 :00 No 1{tbl} Take 1 tablet by mouth every 6 (six) hours as needed for up to 10 days. Max Daily Amount: 4 tablets [facility] methocarbam oL (ROBAXIN) 500 MG tablet 04-03 00:00: 00 04-13 23:59 :00 No 500mg Q.25D Take 1 tablet (500 mg total) by mouth 4 (four) times daily for 10 days. [facility] HYDROcodone -acetaminop hen (NORCO 10-325) 10-325 mg per tablet 04-03 00:00: 00 04-13 23:59 :00 No 1{tbl} Take 1 tablet by mouth every 6 (six) hours as needed for up to 10 days. Max Daily Amount: 4 tablets [facility] methocarbam oL (ROBAXIN) 500 MG tablet 04-03 00:00: 00 04-13 23:59 :00 No 500mg Q.25D Take 1 tablet (500 mg total) by mouth 4 (four) times daily for 10 days. [facility] HYDROcodone -acetaminop hen (NORCO 10-325) 10-325 mg per tablet 04-03 00:00: 00 04-13 23:59 :00 No 1{tbl} Take 1 tablet by mouth every 6 (six) hours as needed for up to 10 days. Max Daily Amount: 4 tablets [facility] methocarbam oL (ROBAXIN) 500 MG tablet 04-03 00:00: 00 04-13 23:59 :00 No 500mg Q.25D Take 1 tablet (500 mg total) by mouth 4 (four) times daily for 10 days. [facility] HYDROcodone -acetaminop hen (NORCO 10-325) 10-325 mg per tablet 04-03 00:00: 00 04-13 23:59 :00 No 1{tbl} Take 1 tablet by mouth every 6 (six) hours as needed for up to 10 days. Max Daily Amount: 4 tablets [facility] methocarbam oL (ROBAXIN) 500 MG tablet 04-03 00:00: 00 04-13 23:59 :00 No 500mg Q.25D Take 1 tablet (500 mg total) by mouth 4 (four) times daily for 10 days. [facility] aspirin 81 MG EC tablet 04-03 00:00: 00 04-03 00:00 :00 No 81mg QD Take 1 tablet (81 mg total) by mouth daily for 90 days. [facility] DULoxetine (CYMBALTA) 30 MG capsule 04-03 00:00: 00 04-03 00:00 :00 No 30mg QD Take 1 capsule (30 mg total) by mouth daily. [facility] furosemide (LASIX) 20 MG tablet 04-03 00:00: 00 04-03 00:00 :00 No 20mg QD Take 1 tablet (20 mg total) by mouth daily. [facility] lisinopriL (PRINIVIL,Z ESTRIL) 5 MG tablet 04-03 00:00: 00 04-03 00:00 :00 No 5mg QD Take 1 tablet (5 mg total) by mouth daily. [facility] lisinopriL (PRINIVIL,Z ESTRIL) 5 MG tablet 04-03 00:00: 00 04-03 00:00 :00 No 5mg QD Take 1 tablet (5 mg total) by mouth daily. [facility] aspirin 81 MG EC tablet 04-03 00:00: 00 04-03 00:00 :00 No 81mg QD Take 1 tablet (81 mg total) by mouth daily for 90 days. [facility] DULoxetine (CYMBALTA) 30 MG capsule 04-03 00:00: 00 04-03 00:00 :00 No 30mg QD Take 1 capsule (30 mg total) by mouth daily. [facility] furosemide (LASIX) 20 MG tablet 04-03 00:00: 00 04-03 00:00 :00 No 20mg QD Take 1 tablet (20 mg total) by mouth daily. [facility] lisinopriL (PRINIVIL,Z ESTRIL) 5 MG tablet 04-03 00:00: 00 04-03 00:00 :00 No 5mg QD Take 1 tablet (5 mg total) by mouth daily. [facility] aspirin 81 MG EC tablet 04-03 00:00: 00 04-03 00:00 :00 No 81mg QD Take 1 tablet (81 mg total) by mouth daily for 90 days. [facility] DULoxetine (CYMBALTA) 30 MG capsule 15 00:00: 00 04-03 00:00 :00 No 30mg QD Take 1 capsule (30 mg total) by mouth daily. [facility] furosemide (LASIX) 20 MG tablet 04-03 00:00: 00 04-03 00:00 :00 No 20mg QD Take 1 tablet (20 mg total) by mouth daily. [facility] lisinopriL (PRINIVIL,Z ESTRIL) 5 MG tablet 04-03 00:00: 00 04-03 00:00 :00 No 5mg QD Take 1 tablet (5 mg total) by mouth daily. [facility] aspirin 81 MG EC tablet 04-03 00:00: 00 04-03 00:00 :00 No 81mg QD Take 1 tablet (81 mg total) by mouth daily for 90 days. [facility] DULoxetine (CYMBALTA) 30 MG capsule 04-03 00:00: 00 04-03 00:00 :00 No 30mg QD Take 1 capsule (30 mg total) by mouth daily. [facility] furosemide (LASIX) 20 MG tablet 04-03 00:00: 00 04-03 00:00 :00 No 20mg QD Take 1 tablet (20 mg total) by mouth daily. [facility] lisinopriL (PRINIVIL,Z ESTRIL) 5 MG tablet 04-03 00:00: 00 04-03 00:00 :00 No 5mg QD Take 1 tablet (5 mg total) by mouth daily. [facility] aspirin 81 MG EC tablet 04-03 00:00: 00 04-03 00:00 :00 No 81mg QD Take 1 tablet (81 mg total) by mouth daily for 90 days. [facility] DULoxetine (CYMBALTA) 30 MG capsule 04-03 00:00: 00 04-03 00:00 :00 No 30mg QD Take 1 capsule (30 mg total) by mouth daily. [facility] furosemide (LASIX) 20 MG tablet 04-03 00:00: 00 04-03 00:00 :00 No 20mg QD Take 1 tablet (20 mg total) by mouth daily. [facility] lisinopriL (PRINIVIL,Z ESTRIL) 5 MG tablet 04-03 00:00: 00 04-03 00:00 :00 No 5mg QD Take 1 tablet (5 mg total) by mouth daily. [facility] aspirin 81 MG EC tablet 04-03 00:00: 00 04-03 00:00 :00 No 81mg QD Take 1 tablet (81 mg total) by mouth daily for 90 days. [facility] DULoxetine (CYMBALTA) 30 MG capsule 04-03 00:00: 00 04-03 00:00 :00 No 30mg QD Take 1 capsule (30 mg total) by mouth daily. [facility] furosemide (LASIX) 20 MG tablet 04-03 00:00: 00 04-03 00:00 :00 No 20mg QD Take 1 tablet (20 mg total) by mouth daily. [facility] lisinopriL (PRINIVIL,Z ESTRIL) 5 MG tablet 04-03 00:00: 00 04-03 00:00 :00 No 5mg QD Take 1 tablet (5 mg total) by mouth daily. [facility] aspirin 81 MG EC tablet 04-03 00:00: 00 04-03 00:00 :00 No 81mg QD Take 1 tablet (81 mg total) by mouth daily for 90 days. [facility] DULoxetine (CYMBALTA) 30 MG capsule 04-03 00:00: 00 04-03 00:00 :00 No 30mg QD Take 1 capsule (30 mg total) by mouth daily. [facility] furosemide (LASIX) 20 MG tablet 04-03 00:00: 00 04-03 00:00 :00 No 20mg QD Take 1 tablet (20 mg total) by mouth daily. [facility] aspirin 81 MG EC tablet 04-03 00:00: 00 04-03 00:00 :00 No 81mg QD Take 1 tablet (81 mg total) by mouth daily for 90 days. [facility] DULoxetine (CYMBALTA) 30 MG capsule 04-03 00:00: 00 04-03 00:00 :00 No 30mg QD Take 1 capsule (30 mg total) by mouth daily. [facility] furosemide (LASIX) 20 MG tablet 04-03 00:00: 00 04-03 00:00 :00 No 20mg QD Take 1 tablet (20 mg total) by mouth daily. [facility] lisinopriL (PRINIVIL,Z ESTRIL) 5 MG tablet 04-03 00:00: 00 04-03 00:00 :00 No 5mg QD Take 1 tablet (5 mg total) by mouth daily. [facility] lisinopriL (PRINIVIL,Z ESTRIL) 5 MG tablet 04-03 00:00: 00 04-03 00:00 :00 No 5mg QD Take 1 tablet (5 mg total) by mouth daily. [facility] aspirin 81 MG EC tablet 04-03 00:00: 00 04-03 00:00 :00 No 81mg QD Take 1 tablet (81 mg total) by mouth daily for 90 days. [facility] DULoxetine (CYMBALTA) 30 MG capsule 04-03 00:00: 00 04-03 00:00 :00 No 30mg QD Take 1 capsule (30 mg total) by mouth daily. [facility] furosemide (LASIX) 20 MG tablet 04-03 00:00: 00 04-03 00:00 :00 No 20mg QD Take 1 tablet (20 mg total) by mouth daily. [facility] lisinopriL (PRINIVIL,Z ESTRIL) 5 MG tablet 04-03 00:00: 00 04-03 00:00 :00 No 5mg QD Take 1 tablet (5 mg total) by mouth daily. [facility] aspirin 81 MG EC tablet 04-03 00:00: 00 04-03 00:00 :00 No 81mg QD Take 1 tablet (81 mg total) by mouth daily for 90 days. [facility] DULoxetine (CYMBALTA) 30 MG capsule 04-03 00:00: 00 04-03 00:00 :00 No 30mg QD Take 1 capsule (30 mg total) by mouth daily. [facility] furosemide (LASIX) 20 MG tablet 04-03 00:00: 00 04-03 00:00 :00 No 20mg QD Take 1 tablet (20 mg total) by mouth daily. [facility] lisinopriL (PRINIVIL,Z ESTRIL) 5 MG tablet 04-03 00:00: 00 04-03 00:00 :00 No 5mg QD Take 1 tablet (5 mg total) by mouth daily. [facility] aspirin 81 MG EC tablet 04-03 00:00: 00 04-03 00:00 :00 No 81mg QD Take 1 tablet (81 mg total) by mouth daily for 90 days. [facility] DULoxetine (CYMBALTA) 30 MG capsule 04-03 00:00: 00 04-03 00:00 :00 No 30mg QD Take 1 capsule (30 mg total) by mouth daily. [facility] furosemide (LASIX) 20 MG tablet 04-03 00:00: 00 04-03 00:00 :00 No 20mg QD Take 1 tablet (20 mg total) by mouth daily. [facility] lisinopriL (PRINIVIL,Z ESTRIL) 5 MG tablet 04-03 00:00: 00 04-03 00:00 :00 No 5mg QD Take 1 tablet (5 mg total) by mouth daily. [facility] aspirin 81 MG EC tablet 04-03 00:00: 00 04-03 00:00 :00 No 81mg QD Take 1 tablet (81 mg total) by mouth daily for 90 days. [facility] DULoxetine (CYMBALTA) 30 MG capsule 04-03 00:00: 00 04-03 00:00 :00 No 30mg QD Take 1 capsule (30 mg total) by mouth daily. [facility] furosemide (LASIX) 20 MG tablet 04-03 00:00: 00 04-03 00:00 :00 No 20mg QD Take 1 tablet (20 mg total) by mouth daily. [facility] lisinopriL (PRINIVIL,Z ESTRIL) 5 MG tablet 04-03 00:00: 00 04-03 00:00 :00 No 5mg QD Take 1 tablet (5 mg total) by mouth daily. [facility] aspirin 81 MG EC tablet 04-03 00:00: 00 04-03 00:00 :00 No 81mg QD Take 1 tablet (81 mg total) by mouth daily for 90 days. [facility] DULoxetine (CYMBALTA) 30 MG capsule 04-03 00:00: 00 04-03 00:00 :00 No 30mg QD Take 1 capsule (30 mg total) by mouth daily. [facility] furosemide (LASIX) 20 MG tablet 04-03 00:00: 00 04-03 00:00 :00 No 20mg QD Take 1 tablet (20 mg total) by mouth daily. [facility] lisinopriL (PRINIVIL,Z ESTRIL) 5 MG tablet 04-03 00:00: 00 04-03 00:00 :00 No 5mg QD Take 1 tablet (5 mg total) by mouth daily. [facility] aspirin 81 MG EC tablet 04-03 00:00: 00 04-03 00:00 :00 No 81mg QD Take 1 tablet (81 mg total) by mouth daily for 90 days. [facility] DULoxetine (CYMBALTA) 30 MG capsule 04-03 00:00: 00 04-03 00:00 :00 No 30mg QD Take 1 capsule (30 mg total) by mouth daily. [facility] furosemide (LASIX) 20 MG tablet 04-03 00:00: 00 04-03 00:00 :00 No 20mg QD Take 1 tablet (20 mg total) by mouth daily. [facility] lisinopriL (PRINIVIL,Z ESTRIL) 5 MG tablet 04-03 00:00: 00 04-03 00:00 :00 No 5mg QD Take 1 tablet (5 mg total) by mouth daily. [facility] aspirin 81 MG EC tablet 04-03 00:00: 00 04-03 00:00 :00 No 81mg QD Take 1 tablet (81 mg total) by mouth daily for 90 days. [facility] DULoxetine (CYMBALTA) 30 MG capsule 04-03 00:00: 00 04-03 00:00 :00 No 30mg QD Take 1 capsule (30 mg total) by mouth daily. [facility] furosemide (LASIX) 20 MG tablet 04-03 00:00: 00 04-03 00:00 :00 No 20mg QD Take 1 tablet (20 mg total) by mouth daily. [facility] lisinopriL (PRINIVIL,Z ESTRIL) 5 MG tablet 04-03 00:00: 00 04-03 00:00 :00 No 5mg QD Take 1 tablet (5 mg total) by mouth daily. [facility] aspirin 81 MG EC tablet 04-03 00:00: 00 04-03 00:00 :00 No 81mg QD Take 1 tablet (81 mg total) by mouth daily for 90 days. [facility] DULoxetine (CYMBALTA) 30 MG capsule 04-03 00:00: 00 04-03 00:00 :00 No 30mg QD Take 1 capsule (30 mg total) by mouth daily. [facility] furosemide (LASIX) 20 MG tablet 04-03 00:00: 00 04-03 00:00 :00 No 20mg QD Take 1 tablet (20 mg total) by mouth daily. [facility] lisinopriL (PRINIVIL,Z ESTRIL) 5 MG tablet 04-03 00:00: 00 04-03 00:00 :00 No 5mg QD Take 1 tablet (5 mg total) by mouth daily. [facility] aspirin 81 MG EC tablet 04-03 00:00: 00 04-03 00:00 :00 No 81mg QD Take 1 tablet (81 mg total) by mouth daily for 90 days. [facility] DULoxetine (CYMBALTA) 30 MG capsule 04-03 00:00: 00 04-03 00:00 :00 No 30mg QD Take 1 capsule (30 mg total) by mouth daily. [facility] furosemide (LASIX) 20 MG tablet 04-03 00:00: 00 04-03 00:00 :00 No 20mg QD Take 1 tablet (20 mg total) by mouth daily. [facility] lisinopriL (PRINIVIL,Z ESTRIL) 5 MG tablet 04-03 00:00: 00 04-03 00:00 :00 No 5mg QD Take 1 tablet (5 mg total) by mouth daily. [facility] aspirin 81 MG EC tablet 04-03 00:00: 00 04-03 00:00 :00 No 81mg QD Take 1 tablet (81 mg total) by mouth daily for 90 days. [facility] DULoxetine (CYMBALTA) 30 MG capsule 04-03 00:00: 00 04-03 00:00 :00 No 30mg QD Take 1 capsule (30 mg total) by mouth daily. [facility] furosemide (LASIX) 20 MG tablet 04-03 00:00: 00 04-03 00:00 :00 No 20mg QD Take 1 tablet (20 mg total) by mouth daily. [facility] lisinopriL (PRINIVIL,Z ESTRIL) 5 MG tablet 04-03 00:00: 00 04-03 00:00 :00 No 5mg QD Take 1 tablet (5 mg total) by mouth daily. [facility] aspirin 81 MG EC tablet 04-03 00:00: 00 04-03 00:00 :00 No 81mg QD Take 1 tablet (81 mg total) by mouth daily for 90 days. [facility] DULoxetine (CYMBALTA) 30 MG capsule 04-03 00:00: 00 04-03 00:00 :00 No 30mg QD Take 1 capsule (30 mg total) by mouth daily. [facility] furosemide (LASIX) 20 MG tablet 04-03 00:00: 00 04-03 00:00 :00 No 20mg QD Take 1 tablet (20 mg total) by mouth daily. [facility] lisinopriL (PRINIVIL,Z ESTRIL) 5 MG tablet 04-03 00:00: 00 04-03 00:00 :00 No 5mg QD Take 1 tablet (5 mg total) by mouth daily. [facility] aspirin 81 MG EC tablet 04-03 00:00: 00 04-03 00:00 :00 No 81mg QD Take 1 tablet (81 mg total) by mouth daily for 90 days. [facility] DULoxetine (CYMBALTA) 30 MG capsule 04-03 00:00: 00 04-03 00:00 :00 No 30mg QD Take 1 capsule (30 mg total) by mouth daily. [facility] furosemide (LASIX) 20 MG tablet 04-03 00:00: 00 04-03 00:00 :00 No 20mg QD Take 1 tablet (20 mg total) by mouth daily. [facility] lisinopriL (PRINIVIL,Z ESTRIL) 5 MG tablet 04-03 00:00: 00 04-03 00:00 :00 No 5mg QD Take 1 tablet (5 mg total) by mouth daily. [facility] aspirin 81 MG EC tablet 04-03 00:00: 00 04-03 00:00 :00 No 81mg QD Take 1 tablet (81 mg total) by mouth daily for 90 days. [facility] DULoxetine (CYMBALTA) 30 MG capsule 04-03 00:00: 00 04-03 00:00 :00 No 30mg QD Take 1 capsule (30 mg total) by mouth daily. [facility] furosemide (LASIX) 20 MG tablet 04-03 00:00: 00 04-03 00:00 :00 No 20mg QD Take 1 tablet (20 mg total) by mouth daily. [facility] lisinopriL (PRINIVIL,Z ESTRIL) 5 MG tablet 04-03 00:00: 00 04-03 00:00 :00 No 5mg QD Take 1 tablet (5 mg total) by mouth daily. [facility] aspirin 81 MG EC tablet 04-03 00:00: 00 04-03 00:00 :00 No 81mg QD Take 1 tablet (81 mg total) by mouth daily for 90 days. [facility] DULoxetine (CYMBALTA) 30 MG capsule 04-03 00:00: 00 04-03 00:00 :00 No 30mg QD Take 1 capsule (30 mg total) by mouth daily. [facility] furosemide (LASIX) 20 MG tablet 04-03 00:00: 00 04-03 00:00 :00 No 20mg QD Take 1 tablet (20 mg total) by mouth daily. [facility] lisinopriL (PRINIVIL,Z ESTRIL) 5 MG tablet 04-03 00:00: 00 04-03 00:00 :00 No 5mg QD Take 1 tablet (5 mg total) by mouth daily. [facility] aspirin 81 MG EC tablet 04-03 00:00: 00 04-03 00:00 :00 No 81mg QD Take 1 tablet (81 mg total) by mouth daily for 90 days. [facility] DULoxetine (CYMBALTA) 30 MG capsule 04-03 00:00: 00 04-03 00:00 :00 No 30mg QD Take 1 capsule (30 mg total) by mouth daily. [facility] furosemide (LASIX) 20 MG tablet 04-03 00:00: 00 04-03 00:00 :00 No 20mg QD Take 1 tablet (20 mg total) by mouth daily. [facility] lisinopriL (PRINIVIL,Z ESTRIL) 5 MG tablet 04-03 00:00: 00 04-03 00:00 :00 No 5mg QD Take 1 tablet (5 mg total) by mouth daily. [facility] aspirin 81 MG EC tablet 04-03 00:00: 00 04-03 00:00 :00 No 81mg QD Take 1 tablet (81 mg total) by mouth daily for 90 days. [facility] DULoxetine (CYMBALTA) 30 MG capsule 04-03 00:00: 00 04-03 00:00 :00 No 30mg QD Take 1 capsule (30 mg total) by mouth daily. [facility] furosemide (LASIX) 20 MG tablet 04-03 00:00: 00 04-03 00:00 :00 No 20mg QD Take 1 tablet (20 mg total) by mouth daily. [facility] lisinopriL (PRINIVIL,Z ESTRIL) 5 MG tablet 04-03 00:00: 00 04-03 00:00 :00 No 5mg QD Take 1 tablet (5 mg total) by mouth daily. [facility] aspirin 81 MG EC tablet 04-03 00:00: 00 04-03 00:00 :00 No 81mg QD Take 1 tablet (81 mg total) by mouth daily for 90 days. [facility] DULoxetine (CYMBALTA) 30 MG capsule 04-03 00:00: 00 04-03 00:00 :00 No 30mg QD Take 1 capsule (30 mg total) by mouth daily. [facility] furosemide (LASIX) 20 MG tablet 04-03 00:00: 00 04-03 00:00 :00 No 20mg QD Take 1 tablet (20 mg total) by mouth daily. [facility] lisinopriL (PRINIVIL,Z ESTRIL) 5 MG tablet 04-03 00:00: 00 04-03 00:00 :00 No 5mg QD Take 1 tablet (5 mg total) by mouth daily. [facility] aspirin 81 MG EC tablet 04-03 00:00: 00 04-03 00:00 :00 No 81mg QD Take 1 tablet (81 mg total) by mouth daily for 90 days. [facility] DULoxetine (CYMBALTA) 30 MG capsule 04-03 00:00: 00 04-03 00:00 :00 No 30mg QD Take 1 capsule (30 mg total) by mouth daily. [facility] furosemide (LASIX) 20 MG tablet 04-03 00:00: 00 04-03 00:00 :00 No 20mg QD Take 1 tablet (20 mg total) by mouth daily. [facility] aspirin 81 MG EC tablet 04-03 00:00: 00 04-03 00:00 :00 No 81mg QD Take 1 tablet (81 mg total) by mouth daily for 90 days. [facility] DULoxetine (CYMBALTA) 30 MG capsule 04-03 00:00: 00 04-03 00:00 :00 No 30mg QD Take 1 capsule (30 mg total) by mouth daily. [facility] furosemide (LASIX) 20 MG tablet 04-03 00:00: 00 04-03 00:00 :00 No 20mg QD Take 1 tablet (20 mg total) by mouth daily. [facility] lisinopriL (PRINIVIL,Z ESTRIL) 5 MG tablet 04-03 00:00: 00 04-03 00:00 :00 No 5mg QD Take 1 tablet (5 mg total) by mouth daily. [facility] gabapentin (NEURONTIN) 300 MG capsule 04-02 00:00: 00 04-03 00:00 :00 No 300mg Q.[id number] 3D Take 1 capsule (300 mg total) by mouth 3 (three) times daily for 90 days. [facility] divalproex (DEPAKOTE) 500 MG EC tablet 04-02 00:00: 00 04-03 00:00 :00 No 500mg Q.5D Take 1 tablet (500 mg total) by mouth 2 (two) times daily for 90 days. [facility] clonazePAM (KlonoPIN) 0.5 MG tablet 04-02 00:00: 00 04-03 00:00 :00 No .25mg Take 0.5 tablets (0.25 mg total) by mouth 2 (two) times daily as needed for Anxiety for up to 30 days. Max Daily Amount: 0.5 mg [facility] gabapentin (NEURONTIN) 300 MG capsule 04-02 00:00: 00 04-03 00:00 :00 No 300mg Q.[id number] 3D Take 1 capsule (300 mg total) by mouth 3 (three) times daily for 90 days. [facility] HYDROcodone -acetaminop hen (NORCO 10-325) 10-325 mg per tablet 04-02 00:00: 00 04-03 00:00 :00 No 1{tbl} Take 1 tablet by mouth every 6 (six) hours as needed for up to 10 days. Max Daily Amount: 4 tablets [facility] HYDROcodone -acetaminop hen (NORCO 10-325) 10-325 mg per tablet 04-02 00:00: 00 04-03 00:00 :00 No 1{tbl} Take 1 tablet by mouth every 6 (six) hours as needed for up to 10 days. Max Daily Amount: 4 tablets [facility] methocarbam oL (ROBAXIN) 500 MG tablet 04-02 00:00: 00 04-03 00:00 :00 No 500mg Q.25D Take 1 tablet (500 mg total) by mouth 4 (four) times daily for 10 days. [facility] methocarbam oL (ROBAXIN) 500 MG tablet 04-02 00:00: 00 04-03 00:00 :00 No 500mg Q.25D Take 1 tablet (500 mg total) by mouth 4 (four) times daily for 10 days. [facility] divalproex (DEPAKOTE) 500 MG EC tablet 04-02 00:00: 00 04-03 00:00 :00 No 500mg Q.5D Take 1 tablet (500 mg total) by mouth 2 (two) times daily for 90 days. [facility] clonazePAM (KlonoPIN) 0.5 MG tablet 04-02 00:00: 00 04-03 00:00 :00 No .25mg Take 0.5 tablets (0.25 mg total) by mouth 2 (two) times daily as needed for Anxiety for up to 30 days. Max Daily Amount: 0.5 mg [facility] gabapentin (NEURONTIN) 300 MG capsule 04-02 00:00: 00 04-03 00:00 :00 No 300mg Q.[id number] 3D Take 1 capsule (300 mg total) by mouth 3 (three) times daily for 90 days. [facility] HYDROcodone -acetaminop hen (NORCO 10-325) 10-325 mg per tablet 04-02 00:00: 00 04-03 00:00 :00 No 1{tbl} Take 1 tablet by mouth every 6 (six) hours as needed for up to 10 days. Max Daily Amount: 4 tablets [facility] methocarbam oL (ROBAXIN) 500 MG tablet 04-02 00:00: 00 04-03 00:00 :00 No 500mg Q.25D Take 1 tablet (500 mg total) by mouth 4 (four) times daily for 10 days. [facility] divalproex (DEPAKOTE) 500 MG EC tablet 04-02 00:00: 00 04-03 00:00 :00 No 500mg Q.5D Take 1 tablet (500 mg total) by mouth 2 (two) times daily for 90 days. [facility] clonazePAM (KlonoPIN) 0.5 MG tablet 04-02 00:00: 00 04-03 00:00 :00 No .25mg Take 0.5 tablets (0.25 mg total) by mouth 2 (two) times daily as needed for Anxiety for up to 30 days. Max Daily Amount: 0.5 mg [facility] gabapentin (NEURONTIN) 300 MG capsule 04-02 00:00: 00 04-03 00:00 :00 No 300mg Q.[id number] 3D Take 1 capsule (300 mg total) by mouth 3 (three) times daily for 90 days. [facility] HYDROcodone -acetaminop hen (NORCO 10-325) 10-325 mg per tablet 04-02 00:00: 00 04-03 00:00 :00 No 1{tbl} Take 1 tablet by mouth every 6 (six) hours as needed for up to 10 days. Max Daily Amount: 4 tablets [facility] methocarbam oL (ROBAXIN) 500 MG tablet 04-02 00:00: 00 04-03 00:00 :00 No 500mg Q.25D Take 1 tablet (500 mg total) by mouth 4 (four) times daily for 10 days. [facility] divalproex (DEPAKOTE) 500 MG EC tablet 04-02 00:00: 00 04-03 00:00 :00 No 500mg Q.5D Take 1 tablet (500 mg total) by mouth 2 (two) times daily for 90 days. [facility] clonazePAM (KlonoPIN) 0.5 MG tablet 04-02 00:00: 00 04-03 00:00 :00 No .25mg Take 0.5 tablets (0.25 mg total) by mouth 2 (two) times daily as needed for Anxiety for up to 30 days. Max Daily Amount: 0.5 mg [facility] gabapentin (NEURONTIN) 300 MG capsule 04-02 00:00: 00 04-03 00:00 :00 No 300mg Q.[id number] 3D Take 1 capsule (300 mg total) by mouth 3 (three) times daily for 90 days. [facility] HYDROcodone -acetaminop hen (NORCO 10-325) 10-325 mg per tablet 04-02 00:00: 00 04-03 00:00 :00 No 1{tbl} Take 1 tablet by mouth every 6 (six) hours as needed for up to 10 days. Max Daily Amount: 4 tablets [facility] methocarbam oL (ROBAXIN) 500 MG tablet 04-02 00:00: 00 04-03 00:00 :00 No 500mg Q.25D Take 1 tablet (500 mg total) by mouth 4 (four) times daily for 10 days. [facility] divalproex (DEPAKOTE) 500 MG EC tablet 04-02 00:00: 00 04-03 00:00 :00 No 500mg Q.5D Take 1 tablet (500 mg total) by mouth 2 (two) times daily for 90 days. [facility] clonazePAM (KlonoPIN) 0.5 MG tablet 04-02 00:00: 00 04-03 00:00 :00 No .25mg Take 0.5 tablets (0.25 mg total) by mouth 2 (two) times daily as needed for Anxiety for up to 30 days. Max Daily Amount: 0.5 mg [facility] gabapentin (NEURONTIN) 300 MG capsule 04-02 00:00: 00 04-03 00:00 :00 No 300mg Q.[id number] 3D Take 1 capsule (300 mg total) by mouth 3 (three) times daily for 90 days. [facility] HYDROcodone -acetaminop hen (NORCO 10-325) 10-325 mg per tablet 04-02 00:00: 00 04-03 00:00 :00 No 1{tbl} Take 1 tablet by mouth every 6 (six) hours as needed for up to 10 days. Max Daily Amount: 4 tablets [facility] methocarbam oL (ROBAXIN) 500 MG tablet 04-02 00:00: 00 04-03 00:00 :00 No 500mg Q.25D Take 1 tablet (500 mg total) by mouth 4 (four) times daily for 10 days. [facility] divalproex (DEPAKOTE) 500 MG EC tablet 04-02 00:00: 00 04-03 00:00 :00 No 500mg Q.5D Take 1 tablet (500 mg total) by mouth 2 (two) times daily for 90 days. [facility] clonazePAM (KlonoPIN) 0.5 MG tablet 04-02 00:00: 00 04-03 00:00 :00 No .25mg Take 0.5 tablets (0.25 mg total) by mouth 2 (two) times daily as needed for Anxiety for up to 30 days. Max Daily Amount: 0.5 mg [facility] gabapentin (NEURONTIN) 300 MG capsule 04-02 00:00: 00 04-03 00:00 :00 No 300mg Q.[id number] 3D Take 1 capsule (300 mg total) by mouth 3 (three) times daily for 90 days. [facility] HYDROcodone -acetaminop hen (NORCO 10-325) 10-325 mg per tablet 04-02 00:00: 00 04-03 00:00 :00 No 1{tbl} Take 1 tablet by mouth every 6 (six) hours as needed for up to 10 days. Max Daily Amount: 4 tablets [facility] methocarbam oL (ROBAXIN) 500 MG tablet 04-02 00:00: 00 04-03 00:00 :00 No 500mg Q.25D Take 1 tablet (500 mg total) by mouth 4 (four) times daily for 10 days. [facility] divalproex (DEPAKOTE) 500 MG EC tablet 04-02 00:00: 00 04-03 00:00 :00 No 500mg Q.5D Take 1 tablet (500 mg total) by mouth 2 (two) times daily for 90 days. [facility] clonazePAM (KlonoPIN) 0.5 MG tablet 04-02 00:00: 00 04-03 00:00 :00 No .25mg Take 0.5 tablets (0.25 mg total) by mouth 2 (two) times daily as needed for Anxiety for up to 30 days. Max Daily Amount: 0.5 mg [facility] gabapentin (NEURONTIN) 300 MG capsule 04-02 00:00: 00 04-03 00:00 :00 No 300mg Q.[id number] 3D Take 1 capsule (300 mg total) by mouth 3 (three) times daily for 90 days. [facility] divalproex (DEPAKOTE) 500 MG EC tablet 04-02 00:00: 00 04-03 00:00 :00 No 500mg Q.5D Take 1 tablet (500 mg total) by mouth 2 (two) times daily for 90 days. [facility] clonazePAM (KlonoPIN) 0.5 MG tablet 04-02 00:00: 00 04-03 00:00 :00 No .25mg Take 0.5 tablets (0.25 mg total) by mouth 2 (two) times daily as needed for Anxiety for up to 30 days. Max Daily Amount: 0.5 mg [facility] gabapentin (NEURONTIN) 300 MG capsule 04-02 00:00: 00 04-03 00:00 :00 No 300mg Q.[id number] 3D Take 1 capsule (300 mg total) by mouth 3 (three) times daily for 90 days. [facility] HYDROcodone -acetaminop hen (NORCO 10-325) 10-325 mg per tablet 04-02 00:00: 00 04-03 00:00 :00 No 1{tbl} Take 1 tablet by mouth every 6 (six) hours as needed for up to 10 days. Max Daily Amount: 4 tablets [facility] HYDROcodone -acetaminop hen (NORCO 10-325) 10-325 mg per tablet 04-02 00:00: 00 04-03 00:00 :00 No 1{tbl} Take 1 tablet by mouth every 6 (six) hours as needed for up to 10 days. Max Daily Amount: 4 tablets [facility] methocarbam oL (ROBAXIN) 500 MG tablet 04-02 00:00: 00 04-03 00:00 :00 No 500mg Q.25D Take 1 tablet (500 mg total) by mouth 4 (four) times daily for 10 days. [facility] methocarbam oL (ROBAXIN) 500 MG tablet 04-02 00:00: 00 04-03 00:00 :00 No 500mg Q.25D Take 1 tablet (500 mg total) by mouth 4 (four) times daily for 10 days. [facility] divalproex (DEPAKOTE) 500 MG EC tablet 04-02 00:00: 00 04-03 00:00 :00 No 500mg Q.5D Take 1 tablet (500 mg total) by mouth 2 (two) times daily for 90 days. [facility] clonazePAM (KlonoPIN) 0.5 MG tablet 04-02 00:00: 00 04-03 00:00 :00 No .25mg Take 0.5 tablets (0.25 mg total) by mouth 2 (two) times daily as needed for Anxiety for up to 30 days. Max Daily Amount: 0.5 mg [facility] [facility]IN[facility] 300 MG capsule 04-02 00:00: 00 04-03 00:00 :00 No 300mg Q.[id number] 3D Take 1 capsule (300 mg total) by mouth 3 (three) times daily for 90 days. [facility] HYDROcodone -acetaminop hen (NORCO 10-325) 10-325 mg per tablet 04-02 00:00: 00 04-03 00:00 :00 No 1{tbl} Take 1 tablet by mouth every 6 (six) hours as needed for up to 10 days. Max Daily Amount: 4 tablets [facility] methocarbam oL (ROBAXIN) 500 MG tablet 04-02 00:00: 00 04-03 00:00 :00 No 500mg Q.25D Take 1 tablet (500 mg total) by mouth 4 (four) times daily for 10 days. [facility] divalproex (DEPAKOTE) 500 MG EC tablet 04-02 00:00: 00 04-03 00:00 :00 No 500mg Q.5D Take 1 tablet (500 mg total) by mouth 2 (two) times daily for 90 days. [facility] clonazePAM (KlonoPIN) 0.5 MG tablet 04-02 00:00: 00 04-03 00:00 :00 No .25mg Take 0.5 tablets (0.25 mg total) by mouth 2 (two) times daily as needed for Anxiety for up to 30 days. Max Daily Amount: 0.5 mg [facility] gabapentin (NEURONTIN) 300 MG capsule 04-02 00:00: 00 04-03 00:00 :00 No 300mg Q.[id number] 3D Take 1 capsule (300 mg total) by mouth 3 (three) times daily for 90 days. [facility] HYDROcodone -acetaminop hen (NORCO 10-325) 10-325 mg per tablet 04-02 00:00: 00 04-03 00:00 :00 No 1{tbl} Take 1 tablet by mouth every 6 (six) hours as needed for up to 10 days. Max Daily Amount: 4 tablets [facility] methocarbam oL (ROBAXIN) 500 MG tablet 04-02 00:00: 00 04-03 00:00 :00 No 500mg Q.25D Take 1 tablet (500 mg total) by mouth 4 (four) times daily for 10 days. [facility] divalproex (DEPAKOTE) 500 MG EC tablet 04-02 00:00: 00 04-03 00:00 :00 No 500mg Q.5D Take 1 tablet (500 mg total) by mouth 2 (two) times daily for 90 days. [facility] clonazePAM (KlonoPIN) 0.5 MG tablet 04-02 00:00: 00 04-03 00:00 :00 No .25mg Take 0.5 tablets (0.25 mg total) by mouth 2 (two) times daily as needed for Anxiety for up to 30 days. Max Daily Amount: 0.5 mg [facility] gabapentin (NEURONTIN) 300 MG capsule 04-02 00:00: 00 04-03 00:00 :00 No 300mg Q.[id number] 3D Take 1 capsule (300 mg total) by mouth 3 (three) times daily for 90 days. [facility] HYDROcodone -acetaminop hen (NORCO 10-325) 10-325 mg per tablet 04-02 00:00: 00 04-03 00:00 :00 No 1{tbl} Take 1 tablet by mouth every 6 (six) hours as needed for up to 10 days. Max Daily Amount: 4 tablets [facility] methocarbam oL (ROBAXIN) 500 MG tablet 04-02 00:00: 00 04-03 00:00 :00 No 500mg Q.25D Take 1 tablet (500 mg total) by mouth 4 (four) times daily for 10 days. [facility] divalproex (DEPAKOTE) 500 MG EC tablet 04-02 00:00: 00 04-03 00:00 :00 No 500mg Q.5D Take 1 tablet (500 mg total) by mouth 2 (two) times daily for 90 days. [facility] clonazePAM (KlonoPIN) 0.5 MG tablet 04-02 00:00: 00 04-03 00:00 :00 No .25mg Take 0.5 tablets (0.25 mg total) by mouth 2 (two) times daily as needed for Anxiety for up to 30 days. Max Daily Amount: 0.5 mg [facility] gabapentin (NEURONTIN) 300 MG capsule 04-02 00:00: 00 04-03 00:00 :00 No 300mg Q.[id number] 3D Take 1 capsule (300 mg total) by mouth 3 (three) times daily for 90 days. [facility] HYDROcodone -acetaminop hen (NORCO 10-325) 10-325 mg per tablet 04-02 00:00: 04-03 00:00 :00 No 1{tbl} Take 1 tablet by mouth every 6 (six) hours as needed for up to 10 days. Max Daily Amount: 4 tablets [facility] methocarbam oL (ROBAXIN) 500 MG tablet 04-02 00:00: 00 04-03 00:00 :00 No 500mg Q.25D Take 1 tablet (500 mg total) by mouth 4 (four) times daily for 10 days. [facility] divalproex (DEPAKOTE) 500 MG EC tablet 04-02 00:00: 00 04-03 00:00 :00 No 500mg Q.5D Take 1 tablet (500 mg total) by mouth 2 (two) times daily for 90 days. [facility] clonazePAM (KlonoPIN) 0.5 MG tablet 04-02 00:00: 00 04-03 00:00 :00 No .25mg Take 0.5 tablets (0.25 mg total) by mouth 2 (two) times daily as needed for Anxiety for up to 30 days. Max Daily Amount: 0.5 mg [facility] gabapentin (NEURONTIN) 300 MG capsule 04-02 00:00: 00 04-03 00:00 :00 No 300mg Q.[id number] 3D Take 1 capsule (300 mg total) by mouth 3 (three) times daily for 90 days. [facility] HYDROcodone -acetaminop hen (NORCO 10-325) 10-325 mg per tablet 04-02 00:00: 00 04-03 00:00 :00 No 1{tbl} Take 1 tablet by mouth every 6 (six) hours as needed for up to 10 days. Max Daily Amount: 4 tablets [facility] methocarbam oL (ROBAXIN) 500 MG tablet 04-02 00:00: 00 04-03 00:00 :00 No 500mg Q.25D Take 1 tablet (500 mg total) by mouth 4 (four) times daily for 10 days. [facility] divalproex (DEPAKOTE) 500 MG EC tablet 04-02 00:00: 00 04-03 00:00 :00 No 500mg Q.5D Take 1 tablet (500 mg total) by mouth 2 (two) times daily for 90 days. [facility] clonazePAM (KlonoPIN) 0.5 MG tablet 04-02 00:00: 00 04-03 00:00 :00 No .25mg Take 0.5 tablets (0.25 mg total) by mouth 2 (two) times daily as needed for Anxiety for up to 30 days. Max Daily Amount: 0.5 mg [facility] gabapentin (NEURONTIN) 300 MG capsule 04-02 00:00: 00 04-03 00:00 :00 No 300mg Q.[id number] 3D Take 1 capsule (300 mg total) by mouth 3 (three) times daily for 90 days. [facility] HYDROcodone -acetaminop hen (NORCO 10-325) 10-325 mg per tablet 04-02 00:00: 00 04-03 00:00 :00 No 1{tbl} Take 1 tablet by mouth every 6 (six) hours as needed for up to 10 days. Max Daily Amount: 4 tablets [facility] methocarbam oL (ROBAXIN) 500 MG tablet 04-02 00:00: 00 04-03 00:00 :00 No 500mg Q.25D Take 1 tablet (500 mg total) by mouth 4 (four) times daily for 10 days. [facility] divalproex (DEPAKOTE) 500 MG EC tablet 04-02 00:00: 00 04-03 00:00 :00 No 500mg Q.5D Take 1 tablet (500 mg total) by mouth 2 (two) times daily for 90 days. [facility] clonazePAM (KlonoPIN) 0.5 MG tablet 04-02 00:00: 00 04-03 00:00 :00 No .25mg Take 0.5 tablets (0.25 mg total) by mouth 2 (two) times daily as needed for Anxiety for up to 30 days. Max Daily Amount: 0.5 mg [facility] gabapentin (NEURONTIN) 300 MG capsule 04-02 00:00: 00 04-03 00:00 :00 No 300mg Q.[id number] 3D Take 1 capsule (300 mg total) by mouth 3 (three) times daily for 90 days. [facility] HYDROcodone -acetaminop hen (NORCO 10-325) 10-325 mg per tablet 04-02 00:00: 00 04-03 00:00 :00 No 1{tbl} Take 1 tablet by mouth every 6 (six) hours as needed for up to 10 days. Max Daily Amount: 4 tablets [facility] methocarbam oL (ROBAXIN) 500 MG tablet 04-02 00:00: 00 04-03 00:00 :00 No 500mg Q.25D Take 1 tablet (500 mg total) by mouth 4 (four) times daily for 10 days. [facility] divalproex (DEPAKOTE) 500 MG EC tablet 04-02 00:00: 00 04-03 00:00 :00 No 500mg Q.5D Take 1 tablet (500 mg total) by mouth 2 (two) times daily for 90 days. [facility] clonazePAM (KlonoPIN) 0.5 MG tablet 04-02 00:00: 00 04-03 00:00 :00 No .25mg Take 0.5 tablets (0.25 mg total) by mouth 2 (two) times daily as needed for Anxiety for up to 30 days. Max Daily Amount: 0.5 mg [facility] gabapentin (NEURONTIN) 300 MG capsule 04-02 00:00: 00 04-03 00:00 :00 No 300mg Q.[id number] 3D Take 1 capsule (300 mg total) by mouth 3 (three) times daily for 90 days. [facility] HYDROcodone -acetaminop hen (NORCO 10-325) 10-325 mg per tablet 04-02 00:00: 00 04-03 00:00 :00 No 1{tbl} Take 1 tablet by mouth every 6 (six) hours as needed for up to 10 days. Max Daily Amount: 4 tablets [facility] methocarbam oL (ROBAXIN) 500 MG tablet 04-02 00:00: 00 04-03 00:00 :00 No 500mg Q.25D Take 1 tablet (500 mg total) by mouth 4 (four) times daily for 10 days. [facility] divalproex (DEPAKOTE) 500 MG EC tablet 04-02 00:00: 00 04-03 00:00 :00 No 500mg Q.5D Take 1 tablet (500 mg total) by mouth 2 (two) times daily for 90 days. [facility] clonazePAM (KlonoPIN) 0.5 MG tablet 04-02 00:00: 00 04-03 00:00 :00 No .25mg Take 0.5 tablets (0.25 mg total) by mouth 2 (two) times daily as needed for Anxiety for up to 30 days. Max Daily Amount: 0.5 mg [facility] gabapentin (NEURONTIN) 300 MG capsule 04-02 00:00: 00 04-03 00:00 :00 No 300mg Q.[id number] 3D Take 1 capsule (300 mg total) by mouth 3 (three) times daily for 90 days. [facility] HYDROcodone -acetaminop hen (NORCO 10-325) 10-325 mg per tablet 04-02 00:00: 00 04-03 00:00 :00 No 1{tbl} Take 1 tablet by mouth every 6 (six) hours as needed for up to 10 days. Max Daily Amount: 4 tablets [facility] methocarbam oL (ROBAXIN) 500 MG tablet 04-02 00:00: 00 04-03 00:00 :00 No 500mg Q.25D Take 1 tablet (500 mg total) by mouth 4 (four) times daily for 10 days. [facility] divalproex (DEPAKOTE) 500 MG EC tablet 04-02 00:00: 00 04-03 00:00 :00 No 500mg Q.5D Take 1 tablet (500 mg total) by mouth 2 (two) times daily for 90 days. [facility] clonazePAM (KlonoPIN) 0.5 MG tablet 04-02 00:00: 00 04-03 00:00 :00 No .25mg Take 0.5 tablets (0.25 mg total) by mouth 2 (two) times daily as needed for Anxiety for up to 30 days. Max Daily Amount: 0.5 mg [facility] gabapentin (NEURONTIN) 300 MG capsule 04-02 00:00: 00 04-03 00:00 :00 No 300mg Q.[id number] 3D Take 1 capsule (300 mg total) by mouth 3 (three) times daily for 90 days. [facility] HYDROcodone -acetaminop hen (NORCO 10-325) 10-325 mg per tablet 04-02 00:00: 00 04-03 00:00 :00 No 1{tbl} Take 1 tablet by mouth every 6 (six) hours as needed for up to 10 days. Max Daily Amount: 4 tablets [facility] methocarbam oL (ROBAXIN) 500 MG tablet 04-02 00:00: 00 04-03 00:00 :00 No 500mg Q.25D Take 1 tablet (500 mg total) by mouth 4 (four) times daily for 10 days. [facility] divalproex (DEPAKOTE) 500 MG EC tablet 04-02 00:00: 00 04-03 00:00 :00 No 500mg Q.5D Take 1 tablet (500 mg total) by mouth 2 (two) times daily for 90 days. [facility] clonazePAM (KlonoPIN) 0.5 MG tablet 04-02 00:00: 00 04-03 00:00 :00 No .25mg Take 0.5 tablets (0.25 mg total) by mouth 2 (two) times daily as needed for Anxiety for up to 30 days. Max Daily Amount: 0.5 mg [facility] gabapentin (NEURONTIN) 300 MG capsule 04-02 00:00: 00 04-03 00:00 :00 No 300mg Q.[id number] 3D Take 1 capsule (300 mg total) by mouth 3 (three) times daily for 90 days. [facility] HYDROcodone -acetaminop hen (NORCO 10-325) 10-325 mg per tablet 04-02 00:00: 00 04-03 00:00 :00 No 1{tbl} Take 1 tablet by mouth every 6 (six) hours as needed for up to 10 days. Max Daily Amount: 4 tablets [facility] methocarbam oL (ROBAXIN) 500 MG tablet 04-02 00:00: 00 04-03 00:00 :00 No 500mg Q.25D Take 1 tablet (500 mg total) by mouth 4 (four) times daily for 10 days. [facility] divalproex (DEPAKOTE) 500 MG EC tablet 04-02 00:00: 00 04-03 00:00 :00 No 500mg Q.5D Take 1 tablet (500 mg total) by mouth 2 (two) times daily for 90 days. [facility] clonazePAM (KlonoPIN) 0.5 MG tablet 04-02 00:00: 00 04-03 00:00 :00 No .25mg Take 0.5 tablets (0.25 mg total) by mouth 2 (two) times daily as needed for Anxiety for up to 30 days. Max Daily Amount: 0.5 mg [facility] gabapentin (NEURONTIN) 300 MG capsule 04-02 00:00: 00 04-03 00:00 :00 No 300mg Q.[id number] 3D Take 1 capsule (300 mg total) by mouth 3 (three) times daily for 90 days. [facility] HYDROcodone -acetaminop hen (NORCO 10-325) 10-325 mg per tablet 04-02 00:00: 00 04-03 00:00 :00 No 1{tbl} Take 1 tablet by mouth every 6 (six) hours as needed for up to 10 days. Max Daily Amount: 4 tablets [facility] methocarbam oL (ROBAXIN) 500 MG tablet 04-02 00:00: 00 04-03 00:00 :00 No 500mg Q.25D Take 1 tablet (500 mg total) by mouth 4 (four) times daily for 10 days. [facility] divalproex (DEPAKOTE) 500 MG EC tablet 04-02 00:00: 00 04-03 00:00 :00 No 500mg Q.5D Take 1 tablet (500 mg total) by mouth 2 (two) times daily for 90 days. [facility] clonazePAM (KlonoPIN) 0.5 MG tablet 04-02 00:00: 00 04-03 00:00 :00 No .25mg Take 0.5 tablets (0.25 mg total) by mouth 2 (two) times daily as needed for Anxiety for up to 30 days. Max Daily Amount: 0.5 mg [facility] gabapentin (NEURONTIN) 300 MG capsule 04-02 00:00: 00 04-03 00:00 :00 No 300mg Q.[id number] 3D Take 1 capsule (300 mg total) by mouth 3 (three) times daily for 90 days. [facility] HYDROcodone -acetaminop hen (NORCO 10-325) 10-325 mg per tablet 04-02 00:00: 00 04-03 00:00 :00 No 1{tbl} Take 1 tablet by mouth every 6 (six) hours as needed for up to 10 days. Max Daily Amount: 4 tablets [facility] methocarbam oL (ROBAXIN) 500 MG tablet 04-02 00:00: 00 04-03 00:00 :00 No 500mg Q.25D Take 1 tablet (500 mg total) by mouth 4 (four) times daily for 10 days. [facility] divalproex (DEPAKOTE) 500 MG EC tablet 04-02 00:00: 00 04-03 00:00 :00 No 500mg Q.5D Take 1 tablet (500 mg total) by mouth 2 (two) times daily for 90 days. [facility] clonazePAM (KlonoPIN) 0.5 MG tablet 04-02 00:00: 00 04-03 00:00 :00 No .25mg Take 0.5 tablets (0.25 mg total) by mouth 2 (two) times daily as needed for Anxiety for up to 30 days. Max Daily Amount: 0.5 mg [facility] gabapentin (NEURONTIN) 300 MG capsule 04-02 00:00: 00 04-03 00:00 :00 No 300mg Q.[id number] 3D Take 1 capsule (300 mg total) by mouth 3 (three) times daily for 90 days. [facility] HYDROcodone -acetaminop hen (NORCO 10-325) 10-325 mg per tablet 04-02 00:00: 00 04-03 00:00 :00 No 1{tbl} Take 1 tablet by mouth every 6 (six) hours as needed for up to 10 days. Max Daily Amount: 4 tablets [facility] methocarbam oL (ROBAXIN) 500 MG tablet 04-02 00:00: 00 04-03 00:00 :00 No 500mg Q.25D Take 1 tablet (500 mg total) by mouth 4 (four) times daily for 10 days. [facility] divalproex (DEPAKOTE) 500 MG EC tablet 04-02 00:00: 00 04-03 00:00 :00 No 500mg Q.5D Take 1 tablet (500 mg total) by mouth 2 (two) times daily for 90 days. [facility] clonazePAM (KlonoPIN) 0.5 MG tablet 04-02 00:00: 00 04-03 00:00 :00 No .25mg Take 0.5 tablets (0.25 mg total) by mouth 2 (two) times daily as needed for Anxiety for up to 30 days. Max Daily Amount: 0.5 mg [facility] gabapentin (NEURONTIN) 300 MG capsule 04-02 00:00: 00 04-03 00:00 :00 No 300mg Q.[id number] 3D Take 1 capsule (300 mg total) by mouth 3 (three) times daily for 90 days. [facility] HYDROcodone -acetaminop hen (NORCO 10-325) 10-325 mg per tablet 04-02 00:00: 00 04-03 00:00 :00 No 1{tbl} Take 1 tablet by mouth every 6 (six) hours as needed for up to 10 days. Max Daily Amount: 4 tablets [facility] methocarbam oL (ROBAXIN) 500 MG tablet 04-02 00:00: 00 04-03 00:00 :00 No 500mg Q.25D Take 1 tablet (500 mg total) by mouth 4 (four) times daily for 10 days. [facility] divalproex (DEPAKOTE) 500 MG EC tablet 04-02 00:00: 00 04-03 00:00 :00 No 500mg Q.5D Take 1 tablet (500 mg total) by mouth 2 (two) times daily for 90 days. [facility] clonazePAM (KlonoPIN) 0.5 MG tablet 04-02 00:00: 00 04-03 00:00 :00 No .25mg Take 0.5 tablets (0.25 mg total) by mouth 2 (two) times daily as needed for Anxiety for up to 30 days. Max Daily Amount: 0.5 mg [facility] gabapentin (NEURONTIN) 300 MG capsule 04-02 00:00: 00 04-03 00:00 :00 No 300mg Q.[id number] 3D Take 1 capsule (300 mg total) by mouth 3 (three) times daily for 90 days. [facility] HYDROcodone -acetaminop hen (NORCO 10-325) 10-325 mg per tablet 04-02 00:00: 00 04-03 00:00 :00 No 1{tbl} Take 1 tablet by mouth every 6 (six) hours as needed for up to 10 days. Max Daily Amount: 4 tablets [facility] methocarbam oL (ROBAXIN) 500 MG tablet 04-02 00:00: 00 04-03 00:00 :00 No 500mg Q.25D Take 1 tablet (500 mg total) by mouth 4 (four) times daily for 10 days. [facility] divalproex (DEPAKOTE) 500 MG EC tablet 04-02 00:00: 00 04-03 00:00 :00 No 500mg Q.5D Take 1 tablet (500 mg total) by mouth 2 (two) times daily for 90 days. [facility] clonazePAM (KlonoPIN) 0.5 MG tablet 04-02 00:00: 00 04-03 00:00 :00 No .25mg Take 0.5 tablets (0.25 mg total) by mouth 2 (two) times daily as needed for Anxiety for up to 30 days. Max Daily Amount: 0.5 mg [facility] gabapentin (NEURONTIN) 300 MG capsule 04-02 00:00: 00 04-03 00:00 :00 No 300mg Q.[id number] 3D Take 1 capsule (300 mg total) by mouth 3 (three) times daily for 90 days. [facility] HYDROcodone -acetaminop hen (NORCO 10-325) 10-325 mg per tablet 04-02 00:00: 00 04-03 00:00 :00 No 1{tbl} Take 1 tablet by mouth every 6 (six) hours as needed for up to 10 days. Max Daily Amount: 4 tablets [facility] methocarbam oL (ROBAXIN) 500 MG tablet 04-02 00:00: 00 04-03 00:00 :00 No 500mg Q.25D Take 1 tablet (500 mg total) by mouth 4 (four) times daily for 10 days. [facility] divalproex (DEPAKOTE) 500 MG EC tablet 04-02 00:00: 00 04-03 00:00 :00 No 500mg Q.5D Take 1 tablet (500 mg total) by mouth 2 (two) times daily for 90 days. [facility] clonazePAM (KlonoPIN) 0.5 MG tablet 04-02 00:00: 00 04-03 00:00 :00 No .25mg Take 0.5 tablets (0.25 mg total) by mouth 2 (two) times daily as needed for Anxiety for up to 30 days. Max Daily Amount: 0.5 mg [facility] divalproex (DEPAKOTE) 500 MG EC tablet 04-02 00:00: 00 04-03 00:00 :00 No 500mg Q.5D Take 1 tablet (500 mg total) by mouth 2 (two) times daily for 90 days. [facility] clonazePAM (KlonoPIN) 0.5 MG tablet 04-02 00:00: 00 04-03 00:00 :00 No .25mg Take 0.5 tablets (0.25 mg total) by mouth 2 (two) times daily as needed for Anxiety for up to 30 days. Max Daily Amount: 0.5 mg [facility] gabapentin (NEURONTIN) 300 MG capsule 04-02 00:00: 00 04-03 00:00 :00 No 300mg Q.[id number] 3D Take 1 capsule (300 mg total) by mouth 3 (three) times daily for 90 days. [facility] HYDROcodone -acetaminop hen (NORCO 10-325) 10-325 mg per tablet 04-02 00:00: 00 04-03 00:00 :00 No 1{tbl} Take 1 tablet by mouth every 6 (six) hours as needed for up to 10 days. Max Daily Amount: 4 tablets [facility] methocarbam oL (ROBAXIN) 500 MG tablet 04-02 00:00: 00 04-03 00:00 :00 No 500mg Q.25D Take 1 tablet (500 mg total) by mouth 4 (four) times daily for 10 days. [facility] lacosamide (VIMPAT) 200 mg in NaCl 0.9% (NS) 50 mL piggyback 12-11 19:45: 00 12-11 19:57 :00 No 200mg 200 mg, IV Piggyback, ONCE, 1 dose, On Arpita 12/11/22 at 1445, Administer over 30 Minutes, 50 mL
Facu lty member approving Restricted medication : Alfonso ALVARADO [facility] ketorolac (TORADOL) injection 15 mg 12-11 18:15: 00 12-11 17:25 :00 No 15mg 15 mg, Slow IV Push, ONCE, 1 dose, On Arpita 12/11/22 at 1315[facility] 370-500 mL[facility] injection 80 mL 12-11 16:30: 00 12-11 16:27 :00 No [id number] 80mL 80 mL, Intravenou s, ONCE, 1 dose, On Thu12/11/22 at 1130, Routine [facility] nitroglycer in (NITROL) 2 % ointment 0.5 Inch 12-11 15:30: 00 12-11 14:31 :00 No .5[in_u s] 0.5 Inch, Transderma l (Apply To Skin), ONCE, 1 dose, On Arpita 12/11/22 at 1030[facility] 324 mg 12-11 15:30: 00 12-11 14:30 :00 No 324mg 324 mg, Oral, ONCE, 1 dose, On Arpita 12/11/22 at 1030, Routine [facility] ondansetron (ZOFRAN (PF)) injection 4 mg 12-11 15:30: 00 12-11 14:29 :00 No 4mg 4 mg, Slow IV Push, ONCE, 1 dose, On Thu12/11/22 at 1030[facility] L[facility] (ATIVAN) [facility] 1 mg 12-11 15:00: 00 12-11 14:57 :00 No 1mg 1 mg, Slow IV Push, ONCE, 1 dose, On Arpita 12/11/22 at 1000, STAT [facility] Lacosamide (VIMPAT) 100 mg tablet 12-11 00:00: 00 Yes [id number] 100mg Take 1 tablet by mouth in the morning and 1 tablet in the evening. [facility] Lacosamide (VIMPAT) 100 mg tablet 12-11 00:00: 00 Yes [id number] 100mg Take 1 tablet by mouth in the morning and 1 tablet in the evening. [facility] acetaminoph en-codeine (TYLENOL #3) 300-30 mg tablet 1 tablet 11-18 05:30: 00 11-18 05:30 :00 No 1{tbl} 1 tablet, Oral, ONCE, 1 dose, On Thu11/18/22 at 0030, [facility] methocarbam oL (ROBAXIN) tablet 1,000 mg 11-18 05:30: 00 11-18 05:30 :00 No 1000mg 1,000 mg, Oral, ONCE, 1 dose, On Thu11/18/22 at 0030, [facility] ondansetron (ZOFRAN (PF)) injection 4 mg 11-18 04:45: 00 11-18 03:38 :00 No 4mg 4 mg, Slow IV Push, ONCE, 1 dose, On Thu11/17/22 at 2345, [facility] morpHINE (4 mg/mL) injection 4 mg 11-18 03:45: 00 11-18 03:38 :00 No 4mg 4 mg, Slow IV Push, ONCE, 1 dose, On Thu11/17/22 at 2245, Routine [facility] methocarbam oL (ROBAXIN) injection 1,000 mg 11-18 00:30: 00 11-17 23:47 :00 No 1000mg 1,000 mg, Intravenou s, ONCE, 1 dose, On Thu11/17/22 at 1930, [facility] methocarbam oL 500 mg tablet 11-18 00:00: 00 Yes [id number] 1000mg Take 2 tablets by mouth 4 (four) times daily as needed for Pain (scale 7-10). [facility] methocarbam oL 500 mg tablet 11-18 00:00: 00 Yes [id number] 1000mg Take 2 tablets by mouth 4 (four) times daily as needed for Pain (scale 7-10). [facility] methocarbam oL 500 mg tablet 11-18 00:00: 00 Yes [id number] 1000mg Take 2 tablets by mouth 4 (four) times daily as needed for Pain (scale 7-10). [facility] acetaminoph en-codeine 300-60 mg tablet 11-18 00:00: 00 11-26 04:59 :00 No [id number] 1{tbl} Take 1 tablet by mouth every 6 (six) hours as needed for Pain for up to 7 days. Indication s: acute pain [facility] ketorolac (TORADOL) injection 15 mg 11-18 00:00: 00 11-17 23:08 :00 No 15mg 15 mg, Slow IV Push, ONCE, 1 dose, On Thu11/17/22 at 1900, Routine [facility] morpHINE (4 mg/mL) injection 4 mg 11-17 23:45: 00 11-17 23:49 :00 No 4mg 4 mg, Slow IV Push, ONCE, 1 dose, On Thu11/17/22 at 1845, Routine [facility] ondansetron (ZOFRAN (PF)) injection 4 mg 11-17 23:15: 00 11-17 23:06 :00 No 4mg 4 mg, Slow IV Push, ONCE, 1 dose, On Thu11/17/22 at 1815, MICHAEL [facility] lisinopriL (PRINIVIL,Z ESTRIL) tablet 10 mg 08-02 15:00: 00 Yes 10mg 10 mg, Oral, DAILY, First dose on 08/02/22 at 0900, Until Discontinu ed, Routine [facility] predniSONE (DELTASONE) tablet 40 mg 14 15:00: 00 08-07 14:59 :00 No 40mg 40 mg, Oral, DAILY, 5 doses, First dose on Thu08/02/22 at 0900, Last dose on Thu08/06/22 at 0900, Routine [facility] morpHINE (2 mg/mL) injection 2 mg 08-02 03:29: 15 Yes 2mg 2 mg, Slow IV Push, Q4HPRN, Starting on Thu08/01/22 at 2129, Until Discontinu ed, Routine, Pain (scale 7-10) [facility] levETIRAcet am (KEPPRA) in NACL (ISO-OS) 1,000 mg/100 mL RTU 08-02 00:00: 00 Yes 1000mg 1,000 mg, IV Piggyback, Q12H, First dose on Thu08/01/22 at 1800, Until Discontinu ed, Administer over 15 Minutes, 100 mL [facility] MULTIVITAMI N ORAL 08-01 23:49: 34 Yes 1{tbl} Take 1 Tab by mouth daily. [facility] omega-3 fatty acids-vitam in E (FISH OIL) 1,000 mg capsule 08-01 23:49: 34 Yes 1g Take 1 g by mouth daily. [facility] loratadine (CLARITIN LIQUI-GEL) 10 mg capsule 08-01 23:49: 34 Yes Take by mouth daily. [facility] ondansetron 4 mg tablet 08-01 23:49: 34 Yes 4mg Take 4 mg by mouth every 8 (eight) hours as needed. [facility] pantoprazol e 40 mg EC tablet 08-01 23:49: 34 Yes 40mg Take 40 mg by mouth daily. [facility] MULTIVITAMI N ORAL 08-01 23:49: 34 Yes 1{tbl} Take 1 Tab by mouth daily. [facility] omega-3 fatty acids-vitam in E (FISH OIL) 1,000 mg capsule 08-01 23:49: 34 Yes 1g Take 1 g by mouth daily. [facility] loratadine (CLARITIN LIQUI-GEL) 10 mg capsule 08-01 23:49: 34 Yes Take by mouth daily. [facility] ondansetron 4 mg tablet 08-01 23:49: 34 Yes 4mg Take 4 mg by mouth every 8 (eight) hours as needed. [facility] [facility] EC tablet 08-01 23:49: 34 Yes 40mg Take 40 mg by mouth daily. [facility] MULTIVITAMI N ORAL 08-01 23:49: 34 Yes 1{tbl} Take 1 Tab by mouth daily. [facility] omega-3 fatty acids-vitam in E (FISH OIL) 1,000 mg capsule 08-01 23:49: 34 Yes 1g Take 1 g by mouth daily. [facility] loratadine (CLARITIN LIQUI-GEL) 10 mg capsule 08-01 23:49: 34 Yes Take by mouth daily. [facility] ondansetron 4 mg tablet 08-01 23:49: 34 Yes 4mg Take 4 mg by mouth every 8 (eight) hours as needed. [facility] pantoprazol e 40 mg EC tablet 08-01 23:49: 34 Yes 40mg Take 40 mg by mouth daily. [facility] MULTIVITAMI N ORAL 08-01 23:49: 34 Yes 1{tbl} Take 1 Tab by mouth daily. [facility] omega-3 fatty acids-vitam in E (FISH OIL) 1,000 mg capsule 08-01 23:49: 34 Yes 1g Take 1 g by mouth daily. [facility] loratadine (CLARITIN LIQUI-GEL) 10 mg capsule 08-01 23:49: 34 Yes Take by mouth daily. [facility] ondansetron 4 mg tablet 08-01 23:49: 34 Yes 4mg Take 4 mg by mouth every 8 (eight) hours as needed. [facility] pantoprazol e 40 mg EC tablet 08-01 23:49: 34 Yes 40mg Take 40 mg by mouth daily. [facility] 23:49: 34 Yes 1{tbl} Take 1 Tab by mouth daily. [facility] omega-3 fatty acids-vitam in E (FISH OIL) 1,000 mg capsule 08-01 23:49: 34 Yes 1g Take 1 g by mouth daily. [facility] loratadine (CLARITIN LIQUI-GEL) 10 mg capsule 08-01 23:49: 34 Yes Take by mouth daily. [facility] ondansetron 4 mg tablet 08-01 23:49: 34 Yes 4mg Take 4 mg by mouth every 8 (eight) hours as needed. [facility] pantoprazol e 40 mg EC tablet 08-01 23:49: 34 Yes 40mg Take 40 mg by mouth daily. [facility] MULTIVITAMI N ORAL 08-01 23:49: 34 Yes 1{tbl} Take 1 Tab by mouth daily. [facility] omega-3 fatty acids-vitam in E (FISH OIL) 1,000 mg capsule 08-01 23:49: 34 Yes 1g Take 1 g by mouth daily. [facility] loratadine (CLARITIN LIQUI-GEL) 10 mg capsule 08-01 23:49: 34 Yes Take by mouth daily. [facility] ondansetron 4 mg tablet 08-01 23:49: 34 Yes 4mg Take 4 mg by mouth every 8 (eight) hours as needed. [facility] pantoprazol e 40 mg EC tablet 08-01 23:49: 34 Yes 40mg Take 40 mg by mouth daily. [facility] benzonatate (TESSALON PERLES) capsule 100 mg 08-01 20:00: 00 Yes 100mg 100 mg, Oral, Q8H, First dose on Thu08/01/22 at 1400, Until Discontinu ed, Routine [facility] ipratropium -albuteroL (DUONEB) 0.5 mg-3 mg(2.5 mg base)/3 mL nebulizer solution 3 mL 08-01 18:00: 00 Yes 3mL 3 mL, Inhalation , QID, First dose on Thu08/01/22 at 1200, Until Discontinu ed, Routine [facility] ipratropium -albuteroL (DUONEB) 0.5 mg-3 mg(2.5 mg base)/3 mL nebulizer solution 3 mL 08-01 17:07: 07 Yes 3mL 3 mL, Inhalation , QIDPRN, Starting on Thu08/01/22 at 1107, Until Discontinu ed, MICHAEL, Wheezing, Shortness of Breath [facility] sulfur hexafluorid e microsphr (LUMASON) injection 5 mL 08-01 17:00: 00 08-01 17:00 :00 No [id number] 5mL 5 mL, Intravenou s, ONCE, 1 dose, On Thu08/01/22 at 1100, Routine
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 : KYLEE MONTEZ [facility] pantoprazol e (PROTONIX) EC tablet 40 mg 08-01 15:00: 00 Yes 40mg 40 mg, Oral, DAILY, First dose on Thu08/01/22 at 0900, Until Discontinu ed, Routine [facility] aspirin chewable tablet 81 mg 08-01 15:00: 00 Yes 81mg 81 mg, Oral, DAILY, First dose on Thu08/01/22 at 0900, Until Discontinu ed, Routine [facility] amLODIPine (NORVASC) tablet 10 mg 08-01 15:00: 00 Yes 10mg 10 mg, Oral, DAILY, First dose on Thu08/01/22 at 0900, Until Discontinu ed, Routine [facility] levETIRAcet am (KEPPRA) tablet 500 mg 08-01 14:00: 00 08-01 23:56 :35 No 500mg 500 mg, Oral, BID, First dose on Thu08/01/22 at 0800, Until Discontinu ed, Routine [facility] carvediloL (COREG) tablet 6.25 mg 08-01 14:00: 00 08-01 17:29 :13 No 6.25mg 6.25 mg, Oral, BID MEALS, First dose on Thu08/01/22 at 0800, Until Discontinu ed, Routine [facility] levETIRAcet [facility] (KEPPRA) in NACL (ISO-OS) 1,000 mg/100 mL RTU 08-01 06:45: 00 08-01 06:32 :00 No 1000mg 1,000 mg, IV Piggyback, ONCE, 1 dose, On Thu08/01/22 at 0045, Administer over 15 Minutes, 100 mL [facility] LORazepam (ATIVAN) injection 1 mg 08-01 05:52: 54 Yes 1mg 1 mg, Slow IV Push, Q4HPRN, Starting on Thu07/31/22 at 2352, Until Discontinu ed, Routine, Seizures, Agitation, Anxiety, ETOH / Cocaine Withdrawl [facility] foLIC acid (FOLATE) tablet 1 mg 08-01 05:45: 00 Yes 1mg 1 mg, Oral, DAILY, First dose on Thu07/31/22 at 2345, Until Discontinu ed, Routine [facility] thiamine (VITAMIN B1) tablet 100 mg 08-01 05:45: 00 Yes 100mg 100 mg, Oral, DAILY, First dose on Thu07/31/22 at 2345, Until Discontinu ed, Routine [facility] LORazepam (ATIVAN) injection 0.5 mg 08-01 05:30: 00 08-01 05:29 :00 No .5mg 0.5 mg, Slow IV Push, ONCE, 1 dose, On Thu07/31/22 at 2330, MICHAEL [facility] atorvastati n (LIPITOR) tablet 40 mg 08-01 03:00: 00 Yes 40mg 40 mg, Oral, QHS, First dose on Thu07/31/22 at 2100, Until Discontinu ed, Routine [facility] diphenhydrA MINE (BENADRYL) tablet 25 mg 08-01 00:32: 02 Yes 25mg 25 mg, Oral, Q6HPRN, Starting on Thu07/31/22 at 1832, Until Discontinu ed, Routine, Itching [facility] enoxaparin (LOVENOX) injection 40 mg 07-31 23:00: 00 Yes 40mg 40 mg, Subcutaneo us, DAILY, First dose on Thu07/31/22 at 1700, Until Discontinu ed, Routine [facility] morpHINE (2 mg/mL) injection 2 mg 07-31 23:00: 00 07-31 22:29 :00 No 2mg 2 mg, Slow IV Push, ONCE, 1 dose, On Thu07/31/22 at 1700, Routine [facility] HYDROcodone -acetaminop hen (NORCO) 10-325 mg tablet 1 tablet 07-31 22:01: 36 Yes 1{tbl} 1 tablet, Oral, Q6HPRN, Starting on Thu07/31/22 at 1601, Until Discontinu ed, Routine, Pain (scale 7-10) [facility] HYDROcodone -acetaminop hen (NORCO 5) 5-325 mg tablet 1 tablet 07-31 22:01: 34 08-02 22:00 :34 No 1{tbl} 1 tablet, Oral, Q6HPRN, Starting on Thu07/31/22 at 1601, Until 08/02/22 at 1600, Routine, Pain (scale 4-6) [facility] acetaminoph en (TYLENOL) tablet 650 mg 07-31 22:01: 33 Yes 650mg 650 mg, Oral, Q6HPRN, Starting on Thu07/31/22 at 1601, Until Discontinu ed, Routine, Pain (scale 1-3) [facility] ketorolac (TORADOL) injection 15 mg 07-31 21:45: 00 07-31 20:50 :00 No 15mg 15 mg, Slow IV Push, ONCE, 1 dose, On Arpita 1/12/23 at 1545, Routine [facility] ondansetron (ZOFRAN (PF)) injection 4 mg 07-31 21:00: 00 07-31 20:47 :00 No 4mg 4 mg, Slow IV Push, ONCE, 1 dose, On Arpita 07/31/22 at 1500, MICHAEL [facility] furosemide (LASIX) injection 40 mg 07-31 20:15: 00 Yes 40mg 40 mg, Slow IV Push, Q12H, First dose on Arpita 07/31/22 at 1415, Until Discontinu ed, Routine [facility] methylpredn isolone sod succ (SOLU-MEDRO L) injection 125 mg 07-31 19:30: 00 07-31 18:54 :00 No 125mg 125 mg, Slow IV Push, ONCE NOW, 1 dose, On Arpita 07/31/22 at 1330, MICHAEL [facility] ipratropium -albuteroL (DUONEB) 0.5 mg-3 mg(2.5 mg base)/3 mL nebulizer solution 3 mL 07-31 19:30: 00 07-31 18:48 :00 No 3mL 3 mL, Inhalation , ONCE, 1 dose, On Arpita 07/31/22 at 1330, MICHAEL [facility] pantoprazol e 40 mg EC tablet 07-31 17:15: 40 Yes 40mg Take 40 mg by mouth daily. [facility] MULTIVITAMI N ORAL 07-31 15:50: 57 Yes 1{tbl} Take 1 Tab by mouth daily. [facility] loratadine (CLARITIN LIQUI-GEL) 10 mg capsule 07-31 15:50: 57 Yes Take by mouth daily. [facility] ondansetron 4 mg tablet 07-31 15:50: 57 Yes 4mg Take 4 mg by mouth every 8 (eight) hours as needed. [facility] omega-3 fatty acids-vitam in E (FISH OIL) 1,000 mg capsule 07-31 15:21: 27 Yes 1g Take 1 g by mouth daily. [facility] TAKE ONE (1) TABLET(S) BY MOUTH THREE TIMES A DAY NEEDED. 1- 00:00: 00 No Methylpredn isolone 4 mg tablet 2021-07 00:00: 00 05-12 04:59 :00 No [id number] 4mg Take 1 tablet through enteral tube in the morning for 1 dose. [facility] Methylpredn isolone 4 mg tablet 2021-07 00:00: 00 05-11 04:59 :00 No [id number] 4mg Take 1 tablet through enteral tube every 12 (twelve) hours for 2 doses. [facility] MULTIVITAMI N ORAL 2021-07 14:44: 48 Yes 1{tbl} Take 1 Tab by mouth daily. [facility] omega-3 fatty acids-vitam in E (FISH OIL) 1,000 mg capsule 2021-07 14:44: 48 Yes 1g Take 1 g by mouth daily. [facility] loratadine (CLARITIN LIQUI-GEL) 10 mg capsule 2021-07 14:44: 48 Yes Take by mouth daily. [facility] ondansetron (ZOFRAN) 4 mg tablet 2021-07 14:44: 48 Yes 4mg Take 4 mg by mouth every 8 (eight) hours as needed. [facility] pantoprazol e (PROTONIX) 40 mg EC tablet 2021-07 14:44: 48 Yes 40mg Take 40 mg by mouth daily. [facility] DULoxetine (CYMBALTA) capsule 30 mg 2021-07 14:00: 00 Yes 30mg 30 mg, Oral, DAILY, First dose on Arpita 05/08/22 at 0900, Until Discontinu ed, Routine [facility] divalproex (DEPAKOTE) EC tablet 1,000 mg 2021-07 13:00: 00 Yes 1000mg 1,000 mg, Oral, BID, First dose (after last modificati on) on [facility] 05/08/22 at 0800, Until Discontinu ed, Routine [facility] Methylpredn isolone (MEDROL) tablet 4 mg 2021-07 08:50: 10 05-09 08:59 :00 No 4mg 4 mg, Oral, Q8H TAPER, 3 doses, First dose on Thu05/08/22 at 0400, Last dose on Thu05/08/22 at 2000, Routine [facility] acetaminoph en-codeine (TYLENOL #3) 300-30 mg tablet 1 tablet 2021-07 04:07: 01 Yes 1{tbl} 1 tablet, Oral, Q4HPRN, Starting on Thu05/07/22 at 2307, Until Discontinu ed, Routine, Pain (scale 7-10) [facility] morpHINE (2 mg/mL) injection 2 mg 2021-07 03:03: 15 Yes 2mg 2 mg, Slow IV Push, Q4HPRN, Starting on Thu05/07/22 at 2203, Until Discontinu ed, Routine, Pain (scale 7-10) [facility] LORazepam (ATIVAN) tablet 1 mg 2021-07 00:02: 18 Yes 1mg 1 mg, Oral, Q6HPRN, Starting on Thu05/07/22 at 1902, Until Discontinu ed, Routine, Anxiety [facility] cyclobenzap rine 5 mg tablet 2021-07 00:00: 00 Yes [id number] 5mg Take 1 tablet by mouth in the morning and 1 tablet at noon and 1 tablet in the evening. [facility] cyclobenzap rine 5 mg tablet 2021-07 00:00: 00 Yes [id number] 5mg Take 1 tablet by mouth in the morning and 1 tablet at noon and 1 tablet in the evening. [facility] cyclobenzap rine 5 mg tablet 2021-07 00:00: 00 Yes [id number] 5mg Take 1 tablet by mouth in the morning and 1 tablet at noon and 1 tablet in the evening. [facility] cyclobenzap rine 5 mg tablet 2021-07 00:00: 00 Yes [id number] 5mg Take 1 tablet by mouth in the morning and 1 tablet at noon and 1 tablet in the evening. [facility] cyclobenzap rine 5 mg tablet 2021-07 00:00: 00 Yes [id number] 5mg Take 1 tablet by mouth in the morning and 1 tablet at noon and 1 tablet in the evening. [facility] cyclobenzap rine 5 mg tablet 2021-07 00:00: 00 Yes [id number] 5mg Take 1 tablet by mouth in the morning and 1 tablet at noon and 1 tablet in the evening. [facility] cyclobenzap rine 5 mg tablet 2021-07 00:00: 00 Yes [id number] 5mg Take 1 tablet by mouth in the morning and 1 tablet at noon and 1 tablet in the evening. [facility] cyclobenzap rine 5 mg tablet 2021-07 00:00: 00 Yes [id number] 5mg Take 1 tablet by mouth in the morning and 1 tablet at noon and 1 tablet in the evening. [facility] DULoxetine (CYMBALTA) 30 mg capsule 2021-07 00:00: 00 06-08 05:59 :00 No [id number] 60mg Take 2 capsules by mouth in the morning for 30 days. [facility] divalproex (DEPAKOTE) 250 mg EC tablet 2021-07 00:00: 00 06-08 05:59 :00 No [id number] 750mg Take 3 tablets by mouth every 8 (eight) hours for 30 days. [facility] LORazepam 1 mg tablet 2021-07 00:00: 00 05-19 04:59 :00 No [id number] 1mg Take 1 tablet by mouth every 6 (six) hours as needed for Anxiety or Agitation for up to 10 days. [facility] acetaminoph en-codeine 300-30 mg tablet 2021-07 00:00: 00 05-16 04:59 :00 No [id number] 1{tbl} Take 1 tablet by mouth every 4 (four) hours as needed for Pain (scale 7-10) for up to 7 days. Indication s: acute pain [facility] Methylpredn isolone 4 mg tablet 2021-07 00:00: 00 05-10 04:59 :00 No [id number] 4mg Take 1 tablet by mouth every 8 (eight) hours for 3 doses. [facility] divalproex (DEPAKOTE) EC tablet 750 mg 2021-07 01:00: 00 05-08 09:40 :23 No 750mg 750 mg, Oral, BID, First dose on Thu05/06/22 at 2000, Until Discontinu ed, Routine [facility] levETIRAcet am (KEPPRA) tablet 1,500 mg 2021-07 13:00: 00 05-06 18:38 :22 No 1500mg 1,500 mg, Oral, BID, First dose (after last modificati on) on Thu05/06/22 at 0800, Until Discontinu ed, Routine [facility] levETIRAcet am (KEPPRA) in NACL (ISO-OS) 1,000 mg/100 mL RTU 2021-07 05:00: 00 05-06 05:46 :00 No 1000mg 1,000 mg, IV Piggyback, ONCE, 1 dose, On Thu05/06/22 at 0000, Administer over 15 Minutes, 100 mL [facility] methocarbam oL (ROBAXIN) tablet 500 mg 2021-07 02:15: 00 05-06 23:21 :42 No 500mg 500 mg, Oral, QID, First dose on Thu05/05/22 at 2115, Until Discontinu ed, Routine [facility] LORazepam (ATIVAN) tablet 2 mg 2021-07 01:30: 00 05-06 01:03 :00 No 2mg 2 mg, Oral, ONCE, 1 dose, On Thu05/05/22 at 2030, Routine [facility] levETIRAcet am (KEPPRA) tablet 1,000 mg 2021-07 01:00: 00 05-06 04:48 :06 No 1000mg 1,000 mg, Oral, BID, First dose on Thu05/05/22 at 2000, Until Discontinu ed, Routine [facility] enoxaparin (LOVENOX) injection 40 mg 2021-07 00:15: 00 Yes 40mg 40 mg, Subcutaneo us, Q24H, First dose on Thu05/05/22 at 1915, Until Discontinu ed, Routine [facility] levETIRAcet am (KEPPRA) in NACL (ISO-OS) 1,000 mg/100 mL RTU 2021-07 19:45: 00 05-05 20:05 :00 No 1000mg 1,000 mg, IV Piggyback, ONCE, 1 dose, On Thu05/05/22 at 1445, Administer over 15 Minutes, 100 mL [facility] clonazePAM (KLONOPIN) tablet 0.5 mg 2021-07 19:30: 00 Yes .5mg 0.5 mg, Oral, BID, First dose on Thu05/05/22 at 1430, Until Discontinu ed, Routine [facility] ibuprofen (IBU) tablet 600 mg 2021-07 19:30: 00 Yes 600mg 600 mg, Oral, TID MEALS, First dose on Thu05/05/22 at 1430, Until Discontinu ed, Routine [facility] gabapentin (NEURONTIN) capsule 300 mg 2021-07 19:30: 00 Yes 300mg 300 mg, Oral, TID, First dose on Thu05/05/22 at 1430, Until Discontinu ed, Routine [facility] cyclobenzap rine (FLEXERIL) tablet 5 mg 2021-07 19:30: 00 Yes 5mg 5 mg, Oral, TID, First dose on Thu05/05/22 at 1430, Until Discontinu ed, Routine [facility] acetaminoph en (TYLENOL) tablet 1,000 mg 2021-07 19:30: 00 Yes 1000mg 1,000 mg, Oral, Q8H, First dose on Thu05/05/22 at 1430, Until Discontinu ed, Routine [facility] pantoprazol e (PROTONIX) EC tablet 40 mg 2021-07 14:00: 00 Yes 40mg 40 mg, Oral, DAILY, First dose on Thu05/05/22 at 0900, Until Discontinu ed, Routine [facility] docusate (COLACE) capsule 100 mg 2021-07 14:00: 00 Yes 100mg 100 mg, Oral, DAILY, First dose on Thu05/05/22 at 0900, Until Discontinu ed, Routine [facility] HYDROcodone -acetaminop hen (NORCO) 10-325 mg tablet 1 tablet 2021-07 10:32: 02 05-05 19:18 :52 No 1{tbl} 1 tablet, Oral, Q6HPRN, Starting on Thu05/05/22 at 0532, Until Thu05/05/22 at 1418, Routine, Pain (scale 7-10) [facility] ondansetron (ZOFRAN (PF)) injection 4 mg 2021-07 06:49: 57 Yes 4mg 4 mg, Slow IV Push, Q6HPRN, Starting on Thu05/05/22 at 0149, Until Discontinu ed, Routine, Nausea and Vomiting (N/V) [facility] HYDROcodone -acetaminop hen (NORCO 5) 5-325 mg tablet 1 tablet 2021-07 06:49: 41 05-05 10:32 :14 No 1{tbl} 1 tablet, Oral, Q6HPRN, Starting on Thu05/05/22 at 0149, Until Thu05/05/22 at 0532, Routine, Pain (scale 7-10) [facility] acetaminoph en (TYLENOL) tablet 325 mg 2021-07 06:49: 39 05-05 19:18 :52 No 325mg 325 mg, Oral, Q4HPRN, Starting on Thu05/05/22 at 0149, Until Thu05/05/22 at 1418, Routine, Pain (scale 4-6) [facility] ondansetron (ZOFRAN) tablet 4 mg 2021-07 04:00: 00 05-05 03:26 :00 No 4mg 4 mg, Oral, ONCE, 1 dose, On 05/04/22 at 2300, Routine [facility] morpHINE (2 mg/mL) injection 2 mg 2021-07 04:00: 00 05-05 03:26 :00 No 2mg 2 mg, Slow IV Push, ONCE, 1 dose, On 05/04/22 at 2300, Routine [facility] aspirin 81 mg chewable tablet 04-16 00:00: 00 Yes [id number] 81mg Take 1 tablet by mouth in the morning. [facility] aspirin 81 mg chewable tablet 0 04-16 00:00: 00 Yes [id number] 81mg Take 1 tablet by mouth in the morning. [facility] aspirin 81 mg chewable tablet 0 04-16 00:00: 00 Yes [id number] 81mg Take 1 tablet by mouth in the morning. [facility] aspirin 81 mg chewable tablet 0 04-16 00:00: 00 Yes [id number] 81mg Take 1 tablet by mouth in the morning. [facility] aspirin 81 mg chewable tablet 0 04-16 00:00: 00 Yes [id number] 81mg Take 1 tablet by mouth in the morning. [facility] aspirin 81 mg chewable tablet 0 04-16 00:00: 00 Yes [id number] 81mg Take 1 tablet by mouth in the morning. [facility] aspirin 81 mg chewable tablet 0 04-16 00:00: 00 Yes [id number] 81mg Take 1 tablet by mouth in the morning. [facility] aspirin 81 mg chewable tablet 2021-0 04-16 00:00: 00 Yes [id number] 81mg Take 1 tablet by mouth in the morning. [facility] aspirin 81 mg chewable tablet 0 04-16 00:00: 00 Yes [id number] 81mg Take 1 tablet by mouth in the morning. [facility] MULTIVITAMI N ORAL 04-15 17:39: 14 Yes 1{tbl} Take 1 Tab by mouth daily. [facility] omega-3 fatty acids-vitam in E (FISH OIL) 1,000 mg capsule 04-15 17:39: 14 Yes 1g Take 1 g by mouth daily. [facility] loratadine (CLARITIN LIQUI-GEL) 10 mg capsule 04-15 17:39: 14 Yes Take by mouth daily. [facility] ondansetron (ZOFRAN) 4 mg tablet 04-15 17:39: 14 Yes 4mg Take 4 mg by mouth every 8 (eight) hours as needed. [facility] pantoprazol e (PROTONIX) 40 mg EC tablet 04-15 17:39: 14 Yes 40mg Take 40 mg by mouth daily. [facility] lisinopril- hydrochloro thiazide 20-12.5 mg per tablet 04-15 15:58: 35 04-15 00:00 :00 No 1{tbl} Take 1 tablet by mouth daily. [facility] levetiracet am (KEPPRA ORAL) 04-15 15:58: 35 04-15 00:00 :00 No Take by mouth. [facility] acetaminoph en-codeine (TYLENOL #4) 300-60 mg tablet 1 tablet 04-15 05:39: 23 04-15 14:39 :42 No 1{tbl} 1 tablet, Oral, Q6HPRN, Starting on Thu04/15/22 at 0039, Until Thu04/15/22 at 0939, Routine, Pain (scale 4-6), Pain (scale 1-3) [facility] LORazepam (ATIVAN) tablet 2 mg 04-15 03:30: 00 04-15 10:27 :00 No 2mg 2 mg, Oral, ONCE, 1 dose, On Thu04/14/22 at 2230, Routine [facility] levETIRAcet am (KEPPRA) tablet 1,000 mg 04-15 02:45: 00 Yes 1000mg 1,000 mg, Oral, BID, First dose (after last modificati on) on Thu04/14/22 at 2145, Until Discontinu ed, Routine [facility] ketorolac (TORADOL) injection 15 mg 04-15 02:13: 00 04-15 02:22 :00 No 15mg 15 mg, Slow IV Push, ONCE, 1 dose, On Thu04/14/22 at 2115, Routine [facility] atorvastati n 40 mg tablet 04-15 00:00: 00 Yes [id number] 40mg Take 1 tablet by mouth at bedtime. [facility] levETIRAcet am 1,000 mg tablet 04-15 00:00: 00 Yes [id number] 1000mg Take 1 tablet by mouth in the morning and 1 tablet in the evening. [facility] atorvastati n 40 mg tablet 04-15 00:00: 00 Yes [id number] 40mg Take 1 tablet by mouth at bedtime. [facility] atorvastati n 40 mg tablet 04-15 00:00: 00 Yes [id number] 40mg Take 1 tablet by mouth at bedtime. [facility] atorvastati n 40 mg tablet 04-15 00:00: 00 Yes [id number] 40mg Take 1 tablet by mouth at bedtime. [facility] atorvastati n 40 mg tablet 04-15 00:00: 00 Yes [id number] 40mg Take 1 tablet by mouth at bedtime. [facility] atorvastati n 40 mg tablet 04-15 00:00: 00 Yes [id number] 40mg Take 1 tablet by mouth at bedtime. [facility] atorvastati n 40 mg tablet 04-15 00:00: 00 Yes [id number] 40mg Take 1 tablet by mouth at bedtime. [facility] atorvastati n 40 mg tablet 04-15 00:00: 00 Yes [id number] 40mg Take 1 tablet by mouth at bedtime. [facility] atorvastati n 40 mg tablet 04-15 00:00: 00 Yes [id number] 40mg Take 1 tablet by mouth at bedtime. [facility] levETIRAcet am 1,000 mg tablet 04-15 00:00: 00 05-08 00:00 :00 No [id number] 1000mg Take 1 tablet by mouth in the morning and 1 tablet in the evening. [facility] lidocaine 5 % (700 mg/patch) patch 04-15 00:00: 00 04-23 04:59 :00 No [id number] 1{patch } Apply 1 Patch to area(s) in the morning for 7 days. [facility] HYDROcodone -acetaminop hen 5-325 mg tablet 04-15 00:00: 00 04-21 04:59 :00 No [id number] 1{tbl} Take 1 tablet by mouth every 6 (six) hours as needed for Pain (scale 7-10) for up to 5 days. Indication s: acute pain [facility] lidocaine (LIDODERM) 5 % (700 mg/patch) patch 1 Patch 04-14 21:45: 29 Yes 1{patch } 1 Patch, Topical, Administer over 12 Hours, [id number], Starting on Thu04/14/22 at 1645, Until Discontinu ed, Routine, Localized pain [facility] aspirin chewable tablet 81 mg 04-14 21:30: 00 Yes 81mg 81 mg, Oral, DAILY, First dose on Thu04/14/22 at 1630, Until Discontinu ed, Routine [facility] acetaminoph en (TYLENOL) tablet 650 mg 04-14 21:29: 25 Yes 650mg 650 mg, Oral, Q6HPRN, Starting on Thu04/14/22 at 1629, Until Discontinu ed, Routine, Pain (scale 1-3), Temp > 38.5 C, Temp > 37.5 C [facility] HYDROcodone -acetaminop hen (NORCO) 10-325 mg tablet 1 tablet 04-14 21:29: 02 04-15 05:39 :41 No 1{tbl} 1 tablet, Oral, Q6HPRN, Starting on Thu04/14/22 at 1629, Until Thu04/15/22 at 0039, Routine, Pain (scale 7-10), Pain (scale 4-6) [facility] sulfur hexafluorid e microsphr (LUMASON) injection 5 mL 04-14 16:45: 00 04-14 16:45 :00 No [id number] 5mL 5 mL, Intravenou s, ONCE, 1 dose, On Thu04/14/22 at 1145, Routine
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 : GERSON WE[employer]STER [facility] clopidogreL (PLAVIX) 75 mg tablet 75 mg 04-14 14:00: 00 Yes 75mg 75 mg, Oral, DAILY, First dose on Thu04/14/22 at 0900, Until Discontinu ed, Routine [facility] pantoprazol e (PROTONIX) EC tablet 40 mg 04-14 14:00: 00 Yes 40mg 40 mg, Oral, DAILY, First dose on Thu04/14/22 at 0900, Until Discontinu ed, Routine [facility] atorvastati n (LIPITOR) tablet 40 mg 04-14 02:00: 00 Yes 40mg 40 mg, Oral, QHS, First dose on Thu04/13/22 at 2100, Until Discontinu ed, Routine [facility] LORazepam (ATIVAN) tablet 1 mg 04-14 01:30: 00 04-14 01:45 :00 No 1mg 1 mg, Oral, ONCE, 1 dose, On Thu04/13/22 at 2030, Routine [facility] methocarbam oL (ROBAXIN) tablet 500 mg 04-14 01:00: 00 Yes 500mg 500 mg, Oral, QID, First dose on Thu04/13/22 at 2000, Until Discontinu ed, Routine [facility] heparin (porcine) injection 5,000 Units 04-14 01:00: 00 Yes 5000U 5,000 Units, Subcutaneo us, Q12H, First dose on Thu04/13/22 at 2000, Until Discontinu ed, Routine [facility] acetaminoph en (TYLENOL) tablet 650 mg 04-14 00:23: 25 04-14 21:29 :42 No 650mg 650 mg, Oral, Q6HPRN, Starting on 04/13/22 at 1923, Until 04/14/22 at 1629, Routine, Pain (scale 1-3), Pain (scale 4-6), Temp > 38.5 C, Temp > 37.5 C [facility] lidocaine (LIDODERM) 5 % (700 mg/patch) patch 1 Patch 04-14 00:22: 00 04-14 13:51 :00 No 1{patch } 1 Patch, Topical, Administer over 12 Hours, ONCE, 1 dose, On 04/13/22 at 1930, Routine [facility] FENTanyl PF (SUBLIMAZE (PF)) injection 50 mcg 04-13 20:30: 00 04-13 19:22 :00 No 50ug 50 mcg, Slow IV Push, ONCE, 1 dose, On Thu04/13/22 at 1530, Routine [facility] aspirin chewable tablet 650 mg 04-13 20:15: 00 04-13 20:15 :00 No 650mg 650 mg, Oral, ONCE, 1 dose, On Thu04/13/22 at 1515, Routine [facility] clopidogreL (PLAVIX) 300 mg tablet 300 mg 04-13 20:00: 00 04-13 19:15 :00 No 300mg 300 mg, Oral, ONCE, 1 dose, On Thu04/13/22 at 1500, Routine [facility] ondansetron (ZOFRAN (PF)) injection 4 mg 04-13 19:30: 00 04-13 19:22 :00 No 4mg 4 mg, Slow IV Push, ONCE, 1 dose, On 04/13/22 at 1430, MICHAEL [facility] iopamidol (ISOVUE 370-500 mL) injection 100 mL 04-13 18:31: 00 04-13 18:32 :00 No [id number] 100mL 100 mL, Intravenou s, ONCE, 1 dose, On 04/13/22 at 1345, Routine [facility] NaCl 0.9% (NS) injection 5 mL 04-13 18:14: 11 Yes 5mL 5 mL, Slow IV Push, PRN - SEE INSTRUCTIO NS, Starting on 04/13/22 at 1314, Until Discontinu ed, 10 mL [facility] aspirin chewable tablet 324 mg 11-24 14:00: 00 Yes 324mg 324 mg, Oral, DAILY, First dose on 11/24/21 at 0900, Until Discontinu ed, Routine [facility] metoclopram iker HCl (REGLAN) injection 10 mg 11-23 22:30: 00 11-23 21:24 :00 No 10mg 10 mg, Slow IV Push, ONCE, 1 dose, On 11/23/21 at 1730, [facility] acetaminoph en (TYLENOL) tablet 1,000 mg 11-23 22:15: 00 11-23 21:09 :00 No 1000mg 1,000 mg, Oral, ONCE, 1 dose, On 11/23/21 at 1715, [facility] ondansetron (ZOFRAN (PF)) injection 4 mg 11-23 21:45: 00 11-23 20:30 :00 No 4mg 4 mg, Slow IV Push, ONCE, 1 dose, On 11/23/21 at 1645, [facility] NaCl 0.9% (NS) bolus infusion 1,000 mL 11-23 21:30: 00 11-23 21:56 :00 No 1000mL at 999 mL/hr, 1,000 mL, IV Infusion, ONCE, 1 dose, On 11/23/21 at 1630, [facility] LORazepam (ATIVAN) injection 4 mg 11-23 21:30: 00 11-23 20:23 :00 No 4mg 4 mg, Slow IV Push, ONCE, 1 dose, On 11/23/21 at 1630, STAT [facility] levETIRAcet am (KEPPRA) in NACL (ISO-OS) 1,500 mg/100 mL RTU 2-0 11-23 21:30: 00 11-23 20:47 :00 No 1500mg 1,500 mg, IV Piggyback, ONCE, 1 dose, On 11/23/21 at 1630, Administer over 15 Minutes, 100 mL [facility] Dose Unknown 2022-0 4-08 00:00: 00 No Dose Unknown 2022-0 4-08 00:00: 00 No Prozac 20 mg capsule 2-0 3-21 00:00: 00 No 1mg Prozac 20 [...] 2022-0 3-06 00:00: 00 No Dose Unknown 3- 00:00: 00 No Dose Unknown 3- 00:00: 00 No Dose Unknown 3- 00:00: 00 No Dose Unknown 3- 00:00: 00 No Wellbutrin XL 150 mg 24 hr tablet, extended release 2020-07 00:00: 00 No 1mg Dose Unknown 2020-07 00:00: 00 No Wellbutrin XL 150 mg 24 hr tablet, extended release 2020-07 00:00: 00 No 1mg Dose Unknown 2020-07 00:00: 00 No ibuprofen 800 mg tablet 2020-07 00:00: 00 No 1mg ibuprofen 800 mg [...] y
Durat ion of Therapy: 7 days [facility] levoFLOXaci n (LEVAQUIN) tablet 500 mg 03-17 04:00: 00 03-17 04:22 :00 No 500mg 500 mg, Oral, ONCE, 1 dose, 03/16/21 at 2315, MICHAEL
Re ason for Anti-Infec tive: Documented Infection< br>Documen sherice Infection Site: Respirator y
Durat ion of Therapy: 7 days [facility] morpHINE injection 4 mg 03-17 01:58: 00 03-17 02:13 :00 No 4mg 4 mg, Slow IV Push, ONCE, 1 dose, 03/16/21 at 2100, [facility] ondansetron (ZOFRAN (PF)) injection 4 mg 03-17 01:58: 00 03-17 02:12 :00 No 4mg 4 mg, Slow IV Push, ONCE, 1 dose, 03/16/21 at 2100, [facility] morpHINE injection 4 mg 03-17 01:58: 00 03-17 02:13 :00 No 4mg 4 mg, Slow IV Push, ONCE, 1 dose, 03/16/21 at 2100, [facility] ondansetron (ZOFRAN (PF)) injection 4 mg 03-17 01:58: 00 03-17 02:12 :00 No 4mg 4 mg, Slow IV Push, ONCE, 1 dose, 03/16/21 at 2100, [facility] ipratropium -albuteroL (DUONEB) 0.5 mg-3 mg(2.5 mg base)/3 mL nebulizer solution 3 mL 03-17 01:57: 00 03-17 02:15 :00 No 3mL 3 mL, Inhalation , ONCE, 1 dose, 03/16/21 at 2100, [facility] NaCl 0.9% (NS) IV infusion 1,000 mL 03-17 01:57: 00 03-17 03:07 :00 No 1000mL at 999 mL/hr, Intravenou s, ONCE, 1 dose, 03/16/21 at 2100, [facility] methylpredn isolone sod succ (SOLU-MEDRO L) injection 125 mg 03-17 01:57: 00 03-17 02:11 :00 No 125mg 125 mg, Slow IV Push, ONCE, 1 dose, 03/16/21 at 2100, [facility] ipratropium -albuteroL (DUONEB) 0.5 mg-3 mg(2.5 mg base)/3 mL nebulizer solution 3 mL 03-17 01:57: 00 03-17 02:15 :00 No 3mL 3 mL, Inhalation , ONCE, 1 dose, 03/16/21 at 2100, [facility] ipratropium -albuteroL (DUONEB) 0.5 mg-3 mg(2.5 mg base)/3 mL nebulizer solution 3 mL 03-17 01:57: 00 03-17 02:15 :00 No 3mL 3 mL, Inhalation , ONCE, 1 dose, 03/16/21 at 2100, [facility] NaCl 0.9% (NS) IV infusion 1,000 mL 03-17 01:57: 00 03-17 03:07 :00 No 1000mL at 999 mL/hr, Intravenou s, ONCE, 1 dose, 03/16/21 at 2100, [facility] methylpredn isolone sod succ (SOLU-MEDRO L) injection 125 mg 03-17 01:57: 00 03-17 02:11 :00 No 125mg 125 mg, Slow IV Push, ONCE, 1 dose, 03/16/21 at 2100, STAT [facility] ipratropium -albuteroL (DUONEB) 0.5 mg-3 mg(2.5 mg base)/3 mL nebulizer solution 3 mL 03-17 01:57: 00 03-17 02:15 :00 No 3mL 3 mL, Inhalation , ONCE, 1 dose, 03/16/21 at 2100, [facility] levoFLOXaci n 500 mg tablet 03-17 00:00: 00 03-24 04:59 :00 No [id number] 500mg Take 1 tablet by mouth daily for 6 days. [facility] levoFLOXaci n 500 mg tablet 03-17 00:00: 00 03-24 04:59 :00 No [id number] 500mg Take 1 tablet by mouth daily for 6 days. [facility] levoFLOXaci n 500 mg tablet 03-17 00:00: 00 03-24 04:59 :00 No [id number] 500mg Take 1 tablet by mouth daily for 6 days. [facility] levoFLOXaci n 500 mg tablet 03-17 00:00: 00 03-24 04:59 :00 No [id number] 500mg Take 1 tablet by mouth daily for 6 days. [facility] predniSONE 10 mg tablet 03-17 00:00: 00 03-22 04:59 :00 No [id number] 30mg Take 3 tablets by mouth daily for 4 days. [facility] predniSONE 10 mg tablet 03-17 00:00: 00 03-22 04:59 :00 No [id number] 30mg Take 3 tablets by mouth daily for 4 days. [facility] predniSONE 10 mg tablet 03-17 00:00: 00 03-22 04:59 :00 No [id number] 30mg Take 3 tablets by mouth daily for 4 days. [facility] predniSONE 10 mg tablet 03-17 00:00: 00 03-22 04:59 :00 No [id number] 30mg Take 3 tablets by mouth daily for 4 days. [facility] albuterol (VENTOLIN) inhaler 4 Puff 03-15 01:45: 00 03-15 00:44 :00 No [id number] 4{puff} 4 Puff, Inhalation , ONCE, 1 dose, [facility] 03/14/21 at 2044, Routine [facility] dexamethaso ne (DECADRON) injection 10 mg 03-15 01:45: 00 03-15 00:45 :00 No [id number] 10mg 10 mg, Intramuscu lar, ONCE, 1 dose, [facility] 03/14/21 at 2044, Routine [facility] albuterol 2.5 mg /3 mL (0.083 %) nebulizer solution 03-15 00:00: 00 Yes [id number] 2.5mg Inhale 3 mL every 4 (four) hours as needed for Wheezing or Shortness of Breath. [facility] albuterol 2.5 mg /3 mL (0.083 %) nebulizer solution 03-15 00:00: 00 Yes [id number] 2.5mg Inhale 3 mL every 4 (four) hours as needed for Wheezing or Shortness of Breath. [facility] albuterol 2.5 mg /3 mL (0.083 %) nebulizer solution 03-15 00:00: 00 Yes [id number] 2.5mg Inhale 3 mL every 4 (four) hours as needed for Wheezing or Shortness of Breath. [facility] albuterol 2.5 mg /3 mL (0.083 %) nebulizer solution 03-15 00:00: 00 Yes [id number] 2.5mg Inhale 3 mL every 4 (four) hours as needed for Wheezing or Shortness of Breath. [facility] albuterol 2.5 mg /3 mL (0.083 %) nebulizer solution 03-15 00:00: 00 Yes [id number] 2.5mg Inhale 3 mL every 4 (four) hours as needed for Wheezing or Shortness of Breath. [facility] albuterol 2.5 mg /3 mL (0.083 %) nebulizer solution 03-15 00:00: 00 Yes [id number] 2.5mg Inhale 3 mL every 4 (four) hours as needed for Wheezing or Shortness of Breath. [facility] albuterol 2.5 mg /3 mL (0.083 %) nebulizer solution 03-15 00:00: 00 Yes [id number] 2.5mg Inhale 3 mL every 4 (four) hours as needed for Wheezing or Shortness of Breath. [facility] albuterol 2.5 mg /3 mL (0.083 %) nebulizer solution 03-15 00:00: 00 Yes [id number] 2.5mg Inhale 3 mL every 4 (four) hours as needed for Wheezing or Shortness of Breath. [facility] albuterol 2.5 mg /3 mL (0.083 %) nebulizer solution 03-15 00:00: 00 Yes [id number] 2.5mg Inhale 3 mL every 4 (four) hours as needed for Wheezing or Shortness of Breath. [facility] albuterol 2.5 mg /3 mL (0.083 %) nebulizer solution 03-15 00:00: 00 Yes [id number] 2.5mg Inhale 3 mL every 4 (four) hours as needed for Wheezing or Shortness of Breath. [facility] albuterol 2.5 mg /3 mL (0.083 %) nebulizer solution 03-15 00:00: 00 Yes [id number] 2.5mg Inhale 3 mL every 4 (four) hours as needed for Wheezing or Shortness of Breath. [facility] albuterol 2.5 mg /3 mL (0.083 %) nebulizer solution 03-15 00:00: 00 Yes [id number] 2.5mg Inhale 3 mL every 4 (four) hours as needed for Wheezing or Shortness of Breath. [facility] albuterol 2.5 mg /3 mL (0.083 %) nebulizer solution 03-15 00:00: 00 Yes [id number] 2.5mg Inhale 3 mL every 4 (four) hours as needed for Wheezing or Shortness of Breath. [facility] albuterol 2.5 mg /3 mL (0.083 %) nebulizer solution 03-15 00:00: 00 Yes [id number] 2.5mg Inhale 3 mL every 4 (four) hours as needed for Wheezing or Shortness of Breath. [facility] albuterol 2.5 mg /3 mL (0.083 %) nebulizer solution 03-15 00:00: 00 Yes [id number] 2.5mg Inhale 3 mL every 4 (four) hours as needed for Wheezing or Shortness of Breath. [facility] albuterol 2.5 mg /3 mL (0.083 %) nebulizer solution 03-15 00:00: 00 Yes [id number] 2.5mg Inhale 3 mL every 4 (four) hours as needed for Wheezing or Shortness of Breath. [facility].5 [facility] /3 mL (0.083 %) nebulizer solution 03-15 00:00: 00 Yes [id number] 2.5mg Inhale 3 mL every 4 (four) hours as needed for Wheezing or Shortness of Breath. [facility] 2.5 mg /3 mL (0.083 %) nebulizer solution 03-15 00:00: 00 Yes [id number] 2.5mg Inhale 3 mL every 4 (four) hours as needed for Wheezing or Shortness of Breath. [facility] albuterol 2.5 mg /3 mL (0.083 %) nebulizer solution 03-15 00:00: 00 Yes [id number] 2.5mg Inhale 3 mL every 4 (four) hours as needed for Wheezing or Shortness of Breath. [facility] levETIRAcet am (KEPPRA) in NACL (ISO-OS) 1,000 mg/100 mL RTU 02-19 20:15: 00 02-19 19:30 :00 No 1000mg 1,000 mg, IV Infusion, ONCE, 1 dose, Tu02/19/21 at 1515, Administer over 15 Minutes, 100 mL [facility] levetiracet am (KEPPRA ORAL) 02-19 19:45: 33 Yes Take by mouth. [facility] levetiracet am (KEPPRA ORAL) 02-19 19:45: 33 Yes Take by mouth. [facility] levetiracet am (KEPPRA ORAL) 02-19 19:45: 33 Yes Take by mouth. [facility] levetiracet am (KEPPRA ORAL) 02-19 19:45: 33 Yes Take by mouth. [facility] levetiracet am (KEPPRA ORAL) 02-19 19:45: 33 Yes Take by mouth. [facility] levetiracet am (KEPPRA ORAL) 02-19 19:45: 33 Yes Take by mouth. [facility] LISINOPRIL- HYDROCHLORO THIAZIDE ORAL 02-19 19:41: 15 02-19 00:00 :00 No Take by mouth. [facility] dicyclomine (BENTYL) injection 20 mg 02-19 19:15: 00 02-19 19:04 :00 No 20mg 20 mg, Intramuscu lar, ONCE, 1 dose, 02/19/21 at 1415, Routine [facility] proMETHazin e (PHENERGAN) 25 mg in NaCl 0.9% (NS) 50 mL piggyback 02-19 19:15: 00 02-19 19:03 :00 No 25mg 25 mg, IV Piggyback, ONCE, 1 dose, 02/19/21 at 1415, 50 mL [facility] morpHINE injection 4 mg 02-19 17:15: 00 02-19 17:05 :00 No 4mg 4 mg, Slow IV Push, ONCE, 1 dose, 02/19/21 at 1215, STAT [facility] NaCl 0.9% (NS) bolus infusion 1,000 mL 02-19 17:15: 00 02-19 19:04 :00 No 1000mL at 999 mL/hr, 1,000 mL, IV Infusion, ONCE, 1 dose, 02/19/21 at 1215, STAT [facility] ondansetron (ZOFRAN (PF)) injection 4 mg 02-19 17:00: 00 02-19 15:59 :00 No 4mg 4 mg, Slow IV Push, ONCE, 1 dose, 02/19/21 at 1200, MICHAEL [facility] iopamidol (ISOVUE 370-500 mL) injection 100 mL 02-19 16:35: 00 02-19 16:45 :00 No [id number] 100mL 100 mL, Intravenou s, ONCE, 1 dose, Thu02/19/21 at 1145, Routine [facility] levetiracet am (KEPPRA ORAL) 02-19 14:45: 33 Yes Take by mouth. [facility] levetiracet am (KEPPRA ORAL) 02-19 14:45: 33 Yes Take by mouth. [facility] levetiracet am (KEPPRA ORAL) 02-19 14:45: 33 Yes Take by mouth. [facility] levetiracet am (KEPPRA ORAL) 02-19 14:45: 33 Yes Take by mouth. [facility] levetiracet am (KEPPRA ORAL) 02-19 14:45: 33 Yes Take by mouth. [facility] proMETHazin e 25 mg tablet 02-19 00:00: 00 Yes [id number] 25mg Take 1 tablet by mouth every 6 (six) hours as needed for Nausea and Vomiting (N/V). [facility] dicyclomine 20 mg tablet 02-19 00:00: 00 Yes [id number] 20mg Take 1 tablet by mouth 4 (four) times daily as needed for Abdominal pain. [facility] proMETHazin e 25 mg tablet 02-19 00:00: 00 Yes [id number] 25mg Take 1 tablet by mouth every 6 (six) hours as needed for Nausea and Vomiting (N/V). [facility] dicyclomine 20 mg tablet 02-19 00:00: 00 Yes [id number] 20mg Take 1 tablet by mouth 4 (four) times daily as needed for Abdominal pain. [facility] proMETHazin e 25 mg tablet 02-19 00:00: 00 Yes [id number] 25mg Take 1 tablet by mouth every 6 (six) hours as needed for Nausea and Vomiting (N/V). [facility] dicyclomine 20 mg tablet 02-19 00:00: 00 Yes [id number] 20mg Take 1 tablet by mouth 4 (four) times daily as needed for Abdominal pain. [facility] proMETHazin e 25 mg tablet 02-19 00:00: 00 Yes [id number] 25mg Take 1 tablet by mouth every 6 (six) hours as needed for Nausea and Vomiting (N/V). [facility] dicyclomine 20 mg tablet 02-19 00:00: 00 Yes [id number] 20mg Take 1 tablet by mouth 4 (four) times daily as needed for Abdominal pain. [facility] proMETHazin e 25 mg tablet 02-19 00:00: 00 Yes [id number] 25mg Take 1 tablet by mouth every 6 (six) hours as needed for Nausea and Vomiting (N/V). [facility] dicyclomine 20 mg tablet 02-19 00:00: 00 Yes [id number] 20mg Take 1 tablet by mouth 4 (four) times daily as needed for Abdominal pain. [facility] proMETHazin e 25 mg tablet 02-19 00:00: 00 Yes [id number] 25mg Take 1 tablet by mouth every 6 (six) hours as needed for Nausea and Vomiting (N/V). [facility] dicyclomine 20 mg tablet 02-19 00:00: 00 Yes [id number] 20mg Take 1 tablet by mouth 4 (four) times daily as needed for Abdominal pain. [facility] proMETHazin e 25 mg tablet 02-19 00:00: 00 Yes [id number] 25mg Take 1 tablet by mouth every 6 (six) hours as needed for Nausea and Vomiting (N/V). [facility] dicyclomine 20 mg tablet 02-19 00:00: 00 Yes [id number] 20mg Take 1 tablet by mouth 4 (four) times daily as needed for Abdominal pain. [facility] proMETHazin e 25 mg tablet 02-19 00:00: 00 Yes [id number] 25mg Take 1 tablet by mouth every 6 (six) hours as needed for Nausea and Vomiting (N/V). [facility] dicyclomine 20 mg tablet 0 8 00:00: 00 Yes [id number] 20mg Take 1 tablet by mouth 4 (four) times daily as needed for Abdominal pain. [facility] proMETHazin e 25 mg tablet 0 8 00:00: 00 Yes [id number] 25mg Take 1 tablet by mouth every 6 (six) hours as needed for Nausea and Vomiting (N/V). [facility] dicyclomine 20 mg tablet 0 02-19 00:00: 00 Yes [id number] 20mg Take 1 tablet by mouth 4 (four) times daily as needed for Abdominal pain. [facility] proMETHazin e 25 mg tablet 02-19 00:00: 00 Yes [id number] 25mg Take 1 tablet by mouth every 6 (six) hours as needed for Nausea and Vomiting (N/V). [facility] dicyclomine 20 mg tablet 02-19 00:00: 00 Yes [id number] 20mg Take 1 tablet by mouth 4 (four) times daily as needed for Abdominal pain. [facility] proMETHazin e 25 mg tablet 02-19 00:00: 00 Yes [id number] 25mg Take 1 tablet by mouth every 6 (six) hours as needed for Nausea and Vomiting (N/V). [facility] dicyclomine 20 mg tablet 0 02-19 00:00: 00 Yes [id number] 20mg Take 1 tablet by mouth 4 (four) times daily as needed for Abdominal pain. [facility] proMETHazin e 25 mg tablet 0 8 00:00: 00 Yes [id number] 25mg Take 1 tablet by mouth every 6 (six) hours as needed for Nausea and Vomiting (N/V). [facility] dicyclomine 20 mg tablet 0 8- 00:00: 00 Yes [id number] 20mg Take 1 tablet by mouth 4 (four) times daily as needed for Abdominal pain. [facility] proMETHazin e 25 mg tablet 02-19 00:00: 00 Yes [id number] 25mg Take 1 tablet by mouth every 6 (six) hours as needed for Nausea and Vomiting (N/V). [facility] dicyclomine 20 mg tablet 02-19 00:00: 00 Yes [id number] 20mg Take 1 tablet by mouth 4 (four) times daily as needed for Abdominal pain. [facility] proMETHazin e 25 mg tablet 02-19 00:00: 00 Yes [id number] 25mg Take 1 tablet by mouth every 6 (six) hours as needed for Nausea and Vomiting (N/V). [facility] dicyclomine 20 mg tablet 02-19 00:00: 00 Yes [id number] 20mg Take 1 tablet by mouth 4 (four) times daily as needed for Abdominal pain. [facility] proMETHazin e 25 mg tablet 02-19 00:00: 00 Yes [id number] 25mg Take 1 tablet by mouth every 6 (six) hours as needed for Nausea and Vomiting (N/V). [facility] dicyclomine 20 mg tablet 02-19 00:00: 00 Yes [id number] 20mg Take 1 tablet by mouth 4 (four) times daily as needed for Abdominal pain. [facility] proMETHazin e 25 mg tablet 02-19 00:00: 00 Yes [id number] 25mg Take 1 tablet by mouth every 6 (six) hours as needed for Nausea and Vomiting (N/V). [facility] dicyclomine 20 mg tablet 02-19 00:00: 00 Yes [id number] 20mg Take 1 tablet by mouth 4 (four) times daily as needed for Abdominal pain. [facility] proMETHazin e 25 mg tablet 02-19 00:00: 00 Yes [id number] 25mg Take 1 tablet by mouth every 6 (six) hours as needed for Nausea and Vomiting (N/V). [facility] dicyclomine 20 mg tablet 02-19 00:00: 00 Yes [id number] 20mg Take 1 tablet by mouth 4 (four) times daily as needed for Abdominal pain. [facility] proMETHazin e 25 mg tablet 02-19 00:00: 00 Yes [id number] 25mg Take 1 tablet by mouth every 6 (six) hours as needed for Nausea and Vomiting (N/V). [facility] dicyclomine 20 mg tablet 02-19 00:00: 00 Yes [id number] 20mg Take 1 tablet by mouth 4 (four) times daily as needed for Abdominal pain. [facility] proMETHazin e 25 mg tablet 02-19 00:00: 00 Yes [id number] 25mg Take 1 tablet by mouth every 6 (six) hours as needed for Nausea and Vomiting (N/V). [facility] dicyclomine 20 mg tablet 02-19 00:00: 00 Yes [id number] 20mg Take 1 tablet by mouth 4 (four) times daily as needed for Abdominal pain. [facility] proMETHazin e 25 mg tablet 02-19 00:00: 00 Yes [id number] 25mg Take 1 tablet by mouth every 6 (six) hours as needed for Nausea and Vomiting (N/V). [facility] dicyclomine 20 mg tablet 02-19 00:00: 00 Yes [id number] 20mg Take 1 tablet by mouth 4 (four) times daily as needed for Abdominal pain. [facility] ZONISAMIDE 100 mg capsule 11-15 00:00: 00 Yes TAKE 1 CAPSULE BY MOUTH TWICE A DAY [facility] ZONISAMIDE 100 mg capsule 11-15 00:00: 00 02-19 00:00 :00 No TAKE 1 CAPSULE BY MOUTH TWICE A DAY [facility] ondansetron (ZOFRAN) 4 mg tablet 02-09 20:05: 01 Yes 4mg Take 4 mg by mouth every 8 (eight) hours as needed. [facility] pantoprazol e (PROTONIX) 40 mg EC tablet 02-09 20:05: 01 Yes 40mg Take 40 mg by mouth daily. [facility] ondansetron (ZOFRAN) 4 mg tablet 02-09 20:05: 01 Yes 4mg Take 4 mg by mouth every 8 (eight) hours as needed. [facility] pantoprazol e (PROTONIX) 40 mg EC tablet 02-09 20:05: 01 Yes 40mg Take 40 mg by mouth daily. [facility] LISINOPRIL- HYDROCHLORO THIAZIDE ORAL 02-09 20:05: 01 Yes Take by mouth. [facility] ondansetron (ZOFRAN) 4 mg tablet 02-09 20:05: 01 Yes 4mg Take 4 mg by mouth every 8 (eight) hours as needed. [facility] pantoprazol e (PROTONIX) 40 mg EC tablet 02-09 20:05: 01 Yes 40mg Take 40 mg by mouth daily. [facility] ondansetron (ZOFRAN) 4 mg tablet 02-09 20:05: 01 Yes 4mg Take 4 mg by mouth every 8 (eight) hours as needed. [facility] pantoprazol e (PROTONIX) 40 mg EC tablet 02-09 20:05: 01 Yes 40mg Take 40 mg by mouth daily. [facility] ondansetron (ZOFRAN) 4 mg tablet 02-09 20:05: 01 Yes 4mg Take 4 mg by mouth every 8 (eight) hours as needed. [facility] pantoprazol e (PROTONIX) 40 mg EC tablet 02-09 20:05: 01 Yes 40mg Take 40 mg by mouth daily. [facility] ondansetron (ZOFRAN) 4 mg tablet 02-09 20:05: 01 Yes 4mg Take 4 mg by mouth every 8 (eight) hours as needed. [facility] pantoprazol e (PROTONIX) 40 mg EC tablet 02-09 20:05: 01 Yes 40mg Take 40 mg by mouth daily. [facility] ondansetron (ZOFRAN) 4 mg tablet 02-09 20:05: 01 Yes 4mg Take 4 mg by mouth every 8 (eight) hours as needed. [facility] pantoprazol e (PROTONIX) 40 mg EC tablet 02-09 20:05: 01 Yes 40mg Take 40 mg by mouth daily. [facility] lisinopril- hydrochloro thiazide 20-12.5 mg per tablet 02-09 20:03: 30 Yes 1{tbl} Take 1 tablet by mouth daily. [facility] lisinopril- hydrochloro thiazide 20-12.5 mg per tablet 02-09 20:03: 30 Yes 1{tbl} Take 1 tablet by mouth daily. [facility] lisinopril- hydrochloro thiazide 20-12.5 mg per tablet 02-09 20:03: 30 Yes 1{tbl} Take 1 tablet by mouth daily. [facility] lisinopril- hydrochloro thiazide 20-12.5 mg per tablet 02-09 20:03: 30 Yes 1{tbl} Take 1 tablet by mouth daily. [facility] lisinopril- hydrochloro thiazide 20-12.5 mg per tablet 02-09 20:03: 30 Yes 1{tbl} Take 1 tablet by mouth daily. [facility] lisinopril- hydrochloro thiazide 20-12.5 mg per tablet 02-09 20:03: 30 Yes 1{tbl} Take 1 tablet by mouth daily. [facility] lisinopril- hydrochloro thiazide 20-12.5 mg per tablet 02-09 20:03: 30 Yes 1{tbl} Take 1 tablet by mouth daily. [facility] omega-3 fatty acids-vitam in E (FISH OIL) 1,000 mg capsule 02-09 19:59: 52 Yes 1g Take 1 g by mouth daily. [facility] omega-3 fatty acids-vitam in E (FISH OIL) 1,000 mg capsule 02-09 19:59: 52 Yes 1g Take 1 g by mouth daily. [facility] omega-3 fatty acids-vitam in E (FISH OIL) 1,000 mg capsule 02-09 19:59: 52 Yes 1g Take 1 g by mouth daily. [facility] (FISH OIL) 1,000 mg capsule 02-09 19:59: 52 Yes 1g Take 1 g by mouth daily. [facility] omega-3 fatty acids-vitam in E (FISH OIL) 1,000 mg capsule 02-09 19:59: 52 Yes 1g Take 1 g by mouth daily. [facility] omega-3 fatty acids-vitam in E (FISH OIL) 1,000 mg capsule 02-09 19:59: 52 Yes 1g Take 1 g by mouth daily. [facility] omega-3 fatty acids-vitam in E (FISH OIL) 1,000 mg capsule 02-09 19:59: 52 Yes 1g Take 1 g by mouth daily. [facility] MULTIVITAMI N ORAL 02-09 19:58: 14 Yes 1{tbl} Take 1 Tab by mouth daily. [facility] loratadine (CLARITIN LIQUI-GEL) 10 mg capsule 02-09 19:58: 14 Yes Take by mouth daily. [facility] 19:58: 14 Yes 1{tbl} Take 1 Tab by mouth daily. [facility] loratadine (CLARITIN LIQUI-GEL) 10 mg capsule 02-09 19:58: 14 Yes Take by mouth daily. [facility] MULTIVITAMI N ORAL 02-09 19:58: 14 Yes 1{tbl} Take 1 Tab by mouth daily. [facility] loratadine (CLARITIN LIQUI-GEL) 10 mg capsule 02-09 19:58: 14 Yes Take by mouth daily. [facility] 02-09 19:58: 14 Yes 1{tbl} Take 1 Tab by mouth daily. [facility] loratadine (CLARITIN LIQUI-GEL) 10 mg capsule 02-09 19:58: 14 Yes Take by mouth daily. [facility] MULTIVITAMI N ORAL 02-09 19:58: 14 Yes 1{tbl} Take 1 Tab by mouth daily. [facility] loratadine (CLARITIN LIQUI-GEL) 10 mg capsule 02-09 19:58: 14 Yes Take by mouth daily. [facility] MULTIVITAMI N ORAL 02-09 19:58: 14 Yes 1{tbl} Take 1 Tab by mouth daily. [facility] loratadine (CLARITIN LIQUI-GEL) 10 mg capsule 02-09 19:58: 14 Yes Take by mouth daily. [facility] MULTIVITAMI N ORAL 02-09 19:58: 14 Yes 1{tbl} Take 1 Tab by mouth daily. [facility] loratadine (CLARITIN LIQUI-GEL) 10 mg capsule 02-09 19:58: 14 Yes Take by mouth daily. [facility] ondansetron (ZOFRAN) 4 mg tablet 02-09 15:05: 01 Yes 4mg Take 4 mg by mouth every 8 (eight) hours as needed. [facility] pantoprazol e (PROTONIX) 40 mg EC tablet 02-09 15:05: 01 Yes 40mg Take 40 mg by mouth daily. [facility] ondansetron (ZOFRAN) 4 mg tablet 02-09 15:05: 01 Yes 4mg Take 4 mg by mouth every 8 (eight) hours as needed. [facility] pantoprazol e (PROTONIX) 40 mg EC tablet 02-09 15:05: 01 Yes 40mg Take 40 mg by mouth daily. [facility] ondansetron (ZOFRAN) 4 mg tablet 02-09 15:05: 01 Yes 4mg Take 4 mg by mouth every 8 (eight) hours as needed. [facility] pantoprazol e (PROTONIX) 40 mg EC tablet 02-09 15:05: 01 Yes 40mg Take 40 mg by mouth daily. [facility] ondansetron (ZOFRAN) 4 mg tablet 02-09 15:05: 01 Yes 4mg Take 4 mg by mouth every 8 (eight) hours as needed. [facility] pantoprazol e (PROTONIX) 40 mg EC tablet 02-09 15:05: 01 Yes 40mg Take 40 mg by mouth daily. [facility] ondansetron (ZOFRAN) 4 mg tablet 02-09 15:05: 01 Yes 4mg Take 4 mg by mouth every 8 (eight) hours as needed. [facility] pantoprazol e (PROTONIX) 40 mg EC tablet 02-09 15:05: 01 Yes 40mg Take 40 mg by mouth daily. [facility] lisinopril- hydrochloro thiazide 20-12.5 mg per tablet 02-09 15:03: 30 Yes 1{tbl} Take 1 tablet by mouth daily. [facility] lisinopril- hydrochloro thiazide 20-12.5 mg per tablet 02-09 15:03: 30 Yes 1{tbl} Take 1 tablet by mouth daily. [facility] lisinopril- hydrochloro thiazide 20-12.5 mg per tablet 02-09 15:03: 30 Yes 1{tbl} Take 1 tablet by mouth daily. [facility] lisinopril- hydrochloro thiazide 20-12.5 mg per tablet 02-09 15:03: 30 Yes 1{tbl} Take 1 tablet by mouth daily. [facility] lisinopril- hydrochloro thiazide 20-12.5 mg per tablet 02-09 15:03: 30 Yes 1{tbl} Take 1 tablet by mouth daily. [facility] omega-3 fatty acids-vitam in E (FISH OIL) 1,000 mg capsule 02-09 14:59: 52 Yes 1g Take 1 g by mouth daily. [facility] omega-3 fatty acids-vitam in E (FISH OIL) 1,000 mg capsule 02-09 14:59: 52 Yes 1g Take 1 g by mouth daily. [facility] omega-3 fatty acids-vitam in E (FISH OIL) 1,000 mg capsule 02-09 14:59: 52 Yes 1g Take 1 g by mouth daily. [facility] omega-3 fatty acids-vitam in E (FISH OIL) 1,000 mg capsule 02-09 14:59: 52 Yes 1g Take 1 g by mouth daily. [facility] omega-3 fatty acids-vitam in E (FISH OIL) 1,000 mg capsule 02-09 14:59: 52 Yes 1g Take 1 g by mouth daily. [facility] MULTIVITAMI N ORAL 02-09 14:58: 14 Yes 1{tbl} Take 1 Tab by mouth daily. [facility] loratadine (CLARITIN LIQUI-GEL) 10 mg capsule 02-09 14:58: 14 Yes Take by mouth daily. [facility] MULTIVITAMI N ORAL 02-09 14:58: 14 Yes 1{tbl} Take 1 Tab by mouth daily. [facility] loratadine (CLARITIN LIQUI-GEL) 10 mg capsule 02-09 14:58: 14 Yes Take by mouth daily. [facility] MULTIVITAMI N ORAL 02-09 14:58: 14 Yes 1{tbl} Take 1 Tab by mouth daily. [facility] loratadine (CLARITIN LIQUI-GEL) 10 mg capsule 02-09 14:58: 14 Yes Take by mouth daily. [facility] MULTIVITAMI N ORAL 02-09 14:58: 14 Yes 1{tbl} Take 1 Tab by mouth daily. [facility] loratadine (CLARITIN LIQUI-GEL) 10 mg capsule 02-09 14:58: 14 Yes Take by mouth daily. [facility] MULTIVITAMI N ORAL 02-09 14:58: 14 Yes 1{tbl} Take 1 Tab by mouth daily. [facility] loratadine (CLARITIN LIQUI-GEL) 10 mg capsule 02-09 14:58: 14 Yes Take by mouth daily. [facility] proMETHazin e (PHENERGAN) 25 mg tablet 11-20 00:00: 00 Yes 25mg Take 1 tablet by mouth every 6 (six) hours as needed for Nausea and Vomiting (N/V). [facility] proMETHazin e (PHENERGAN) 25 mg tablet 11-20 00:00: 00 02-19 00:00 :00 No 25mg Take 1 tablet by mouth every 6 (six) hours as needed for Nausea and Vomiting (N/V). [facility] carvedilol (COREG) 6.25 mg tablet 09-19 00:00: 00 Yes 6.25mg Take 1 Tab by mouth 2 (two) times daily with meals. [facility] amLODIPine (NORVASC) 10 mg tablet 09-19 00:00: 00 Yes 10mg Take 1 Tab by mouth daily. [facility] lisinopril (PRINIVIL,Z ESTRIL) 40 mg tablet 09-19 00:00: 00 Yes 40mg Take 1 Tab by mouth daily. [facility] carvedilol (COREG) 6.25 mg tablet 09-19 00:00: 00 Yes 6.25mg Take 1 Tab by mouth 2 (two) times daily with meals. [facility] amLODIPine (NORVASC) 10 mg tablet 09-19 00:00: 00 Yes 10mg Take 1 Tab by mouth daily. [facility] lisinopril (PRINIVIL,Z ESTRIL) 40 mg tablet 09-19 00:00: 00 Yes 40mg Take 1 Tab by mouth daily. [facility] carvedilol (COREG) 6.25 mg tablet 09-19 00:00: 00 Yes 6.25mg Take 1 Tab by mouth 2 (two) times daily with meals. [facility] amLODIPine (NORVASC) 10 mg tablet 09-19 00:00: 00 Yes 10mg Take 1 Tab by mouth daily. [facility] lisinopril (PRINIVIL,Z ESTRIL) 40 mg tablet 09-19 00:00: 00 Yes 40mg Take 1 Tab by mouth daily. [facility] carvedilol (COREG) 6.25 mg tablet 09-19 00:00: 00 Yes 6.25mg Take 1 Tab by mouth 2 (two) times daily with meals. [facility] amLODIPine (NORVASC) 10 mg tablet 09-19 00:00: 00 Yes 10mg Take 1 Tab by mouth daily. [facility] lisinopril (PRINIVIL,Z ESTRIL) 40 mg tablet 09-19 00:00: 00 Yes 40mg Take 1 Tab by mouth daily. [facility] carvedilol (COREG) 6.25 mg tablet 09-19 00:00: 00 Yes 6.25mg Take 1 Tab by mouth 2 (two) times daily with meals. [facility] amLODIPine (NORVASC) 10 mg tablet 09-19 00:00: 00 Yes 10mg Take 1 Tab by mouth daily. [facility] lisinopril (PRINIVIL,Z ESTRIL) 40 mg tablet 09-19 00:00: 00 Yes 40mg Take 1 Tab by mouth daily. [facility] carvedilol (COREG) 6.25 mg tablet 09-19 00:00: 00 Yes 6.25mg Take 1 Tab by mouth 2 (two) times daily with meals. [facility] amLODIPine (NORVASC) 10 mg tablet 09-19 00:00: 00 Yes 10mg Take 1 Tab by mouth daily. [facility] lisinopril (PRINIVIL,Z ESTRIL) 40 mg tablet 09-19 00:00: 00 Yes 40mg Take 1 Tab by mouth daily. [facility] carvedilol (COREG) 6.25 mg tablet 09-19 00:00: 00 Yes 6.25mg Take 1 Tab by mouth 2 (two) times daily with meals. [facility] amLODIPine (NORVASC) 10 mg tablet 09-19 00:00: 00 Yes 10mg Take 1 Tab by mouth daily. [facility] lisinopril (PRINIVIL,Z ESTRIL) 40 mg tablet 09-19 00:00: 00 Yes 40mg Take 1 Tab by mouth daily. [facility] carvedilol (COREG) 6.25 mg tablet 09-19 00:00: 00 Yes 6.25mg Take 1 Tab by mouth 2 (two) times daily with meals. [facility] amLODIPine (NORVASC) 10 mg tablet 09-19 00:00: 00 Yes 10mg Take 1 Tab by mouth daily. [facility] lisinopril (PRINIVIL,Z ESTRIL) 40 mg tablet 09-19 00:00: 00 Yes 40mg Take 1 Tab by mouth daily. [facility] carvedilol (COREG) 6.25 mg tablet 09-19 00:00: 00 Yes 6.25mg Take 1 Tab by mouth 2 (two) times daily with meals. [facility] amLODIPine (NORVASC) 10 mg tablet 09-19 00:00: 00 Yes 10mg Take 1 Tab by mouth daily. [facility] lisinopril (PRINIVIL,Z ESTRIL) 40 mg tablet 09-19 00:00: 00 Yes 40mg Take 1 Tab by mouth daily. [facility] carvedilol (COREG) 6.25 mg tablet 09-19 00:00: 00 Yes 6.25mg Take 1 Tab by mouth 2 (two) times daily with meals. [facility] amLODIPine (NORVASC) 10 mg tablet 09-19 00:00: 00 Yes 10mg Take 1 Tab by mouth daily. [facility] lisinopril (PRINIVIL,Z ESTRIL) 40 mg tablet 09-19 00:00: 00 Yes 40mg Take 1 Tab by mouth daily. [facility] carvedilol (COREG) 6.25 mg tablet 09-19 00:00: 00 Yes 6.25mg Take 1 Tab by mouth 2 (two) times daily with meals. [facility] amLODIPine (NORVASC) 10 mg tablet 09-19 00:00: 00 Yes 10mg Take 1 Tab by mouth daily. [facility] lisinopril (PRINIVIL,Z ESTRIL) 40 mg tablet 09-19 00:00: 00 Yes 40mg Take 1 Tab by mouth daily. [facility] carvedilol (COREG) 6.25 mg tablet 09-19 00:00: 00 Yes 6.25mg Take 1 Tab by mouth 2 (two) times daily with meals. [facility] amLODIPine (NORVASC) 10 mg tablet 09-19 00:00: 00 Yes 10mg Take 1 Tab by mouth daily. [facility] lisinopril (PRINIVIL,Z ESTRIL) 40 mg tablet 09-19 00:00: 00 Yes 40mg Take 1 Tab by mouth daily. [facility] carvedilol (COREG) 6.25 mg tablet 09-19 00:00: 00 Yes 6.25mg Take 1 Tab by mouth 2 (two) times daily with meals. [facility] amLODIPine (NORVASC) 10 mg tablet 09-19 00:00: 00 Yes 10mg Take 1 Tab by mouth daily. [facility] lisinopril (PRINIVIL,Z ESTRIL) 40 mg tablet 09-19 00:00: 00 Yes 40mg Take 1 Tab by mouth daily. [facility] carvedilol (COREG) 6.25 mg tablet 09-19 00:00: 00 Yes 6.25mg Take 1 Tab by mouth 2 (two) times daily with meals. [facility] amLODIPine (NORVASC) 10 mg tablet 09-19 00:00: 00 Yes 10mg Take 1 Tab by mouth daily. [facility] lisinopril (PRINIVIL,Z ESTRIL) 40 mg tablet 09-19 00:00: 00 Yes 40mg Take 1 Tab by mouth daily. [facility] carvedilol (COREG) 6.25 mg tablet 09-19 00:00: 00 Yes 6.25mg Take 1 Tab by mouth 2 (two) times daily with meals. [facility] amLODIPine (NORVASC) 10 mg tablet 09-19 00:00: 00 Yes 10mg Take 1 Tab by mouth daily. [facility] lisinopril (PRINIVIL,Z ESTRIL) 40 mg tablet 09-19 00:00: 00 Yes 40mg Take 1 Tab by mouth daily. [facility] carvedilol (COREG) 6.25 mg tablet 09-19 00:00: 00 Yes 6.25mg Take 1 Tab by mouth 2 (two) times daily with meals. [facility] amLODIPine (NORVASC) 10 mg tablet 09-19 00:00: 00 Yes 10mg Take 1 Tab by mouth daily. [facility] lisinopril (PRINIVIL,Z ESTRIL) 40 mg tablet 09-19 00:00: 00 Yes 40mg Take 1 Tab by mouth daily. [facility] carvedilol (COREG) 6.25 mg tablet 09-19 00:00: 00 Yes 6.25mg Take 1 Tab by mouth 2 (two) times daily with meals. [facility] amLODIPine (NORVASC) 10 mg tablet 09-19 00:00: 00 Yes 10mg Take 1 Tab by mouth daily. [facility] lisinopril (PRINIVIL,Z ESTRIL) 40 mg tablet 09-19 00:00: 00 Yes 40mg Take 1 Tab by mouth daily. [facility] carvedilol (COREG) 6.25 mg tablet 09-19 00:00: 00 Yes 6.25mg Take 1 Tab by mouth 2 (two) times daily with meals. [facility] amLODIPine (NORVASC) 10 mg tablet 09-19 00:00: 00 Yes 10mg Take 1 Tab by mouth daily. [facility] lisinopril (PRINIVIL,Z ESTRIL) 40 mg tablet 09-19 00:00: 00 Yes 40mg Take 1 Tab by mouth daily. [facility] carvedilol (COREG) 6.25 mg tablet 09-19 00:00: 00 Yes 6.25mg Take 1 Tab by mouth 2 (two) times daily with meals. [facility] amLODIPine (NORVASC) 10 mg tablet 09-19 00:00: 00 Yes 10mg Take 1 Tab by mouth daily. [facility] lisinopril (PRINIVIL,Z ESTRIL) 40 mg tablet 09-19 00:00: 00 Yes 40mg Take 1 Tab by mouth daily. [facility] carvedilol (COREG) 6.25 mg tablet 09-19 00:00: 00 Yes 6.25mg Take 1 Tab by mouth 2 (two) times daily with meals. [facility] amLODIPine (NORVASC) 10 mg tablet 09-19 00:00: 00 Yes 10mg Take 1 Tab by mouth daily. [facility] lisinopril (PRINIVIL,Z ESTRIL) 40 mg tablet 09-19 00:00: 00 Yes 40mg Take 1 Tab by mouth daily. [facility] carvedilol (COREG) 6.25 mg tablet 09-19 00:00: 00 Yes 6.25mg Take 1 Tab by mouth 2 (two) times daily with meals. [facility] amLODIPine (NORVASC) 10 mg tablet 09-19 00:00: 00 Yes 10mg Take 1 Tab by mouth daily. [facility] lisinopril (PRINIVIL,Z ESTRIL) 40 mg tablet 09-19 00:00: 00 Yes 40mg Take 1 Tab by mouth daily. [facility] Immunizations Ordered Immunization Name Filled Immunization Name Date Status Comments Source SARS-COV-2 COVID-19 PFIZER BA-SUCROSE VACCINE (ROSE TOP) 2022-02-19 00:00:00 Completed [facility] SARS-COV-2 COVID-19 PFIZER BA-SUCROSE VACCINE (ROSE TOP) 2022-02-19 00:00:00 Completed [facility] SARS-COV-2 COVID-19 PFIZER BA-SUCROSE VACCINE (ROSE TOP) 2022-02-19 00:00:00 Completed [facility] SARS-COV-2 COVID-19 PFIZER BA-SUCROSE VACCINE (ROSE TOP) 2022-02-19 00:00:00 Completed [facility] SARS-COV-2 COVID-19 PFIZER BA-SUCROSE VACCINE (ROSE TOP) 2022-02-19 00:00:00 Completed [facility] SARS-COV-2 COVID-19 PFIZER BA-SUCROSE VACCINE (ROSE TOP) 2022-02-19 00:00:00 Completed [facility] SARS-COV-2 COVID-19 PFIZER BA-SUCROSE VACCINE (ROSE TOP) 2022-02-19 00:00:00 Completed [facility] SARS-COV-2 COVID-19 PFIZER BA-SUCROSE VACCINE (ROSE TOP) 2022-02-19 00:00:00 Completed [facility] SARS-COV-2 COVID-19 PFIZER BA-SUCROSE VACCINE (ROSE TOP) 2022-02-19 00:00:00 Completed [facility] SARS-COV-2 COVID-19 PFIZER VACCINE 2021-05-24 00:00:00 Completed [facility] SARS-COV-2 COVID-19 PFIZER VACCINE 2021-05-24 00:00:00 Completed [facility] SARS-COV-2 COVID-19 PFIZER VACCINE 2021-05-24 00:00:00 Completed [facility] SARS-COV-2 COVID-19 PFIZER VACCINE 2021-05-24 00:00:00 Completed [facility] SARS-COV-2 COVID-19 PFIZER VACCINE 2021-05-24 00:00:00 Completed [facility] SARS-COV-2 COVID-19 PFIZER VACCINE 2021-05-24 00:00:00 Completed [facility] SARS-COV-2 COVID-19 PFIZER VACCINE 2021-05-24 00:00:00 Completed [facility] SARS-COV-2 COVID-19 PFIZER VACCINE 2021-05-24 00:00:00 Completed [facility] SARS-COV-2 COVID-19 PFIZER VACCINE 2021-05-24 00:00:00 Completed [facility] SARS-COV-2 COVID-19 PFIZER VACCINE 2021-05-24 00:00:00 Completed [facility] SARS-COV-2 COVID-19 PFIZER VACCINE 2021-05-24 00:00:00 Completed [facility] SARS-COV-2 COVID-19 PFIZER VACCINE 2021-05-03 00:00:00 Completed [facility] SARS-COV-2 COVID-19 PFIZER VACCINE 2021-05-03 00:00:00 Completed [facility] SARS-COV-2 COVID-19 PFIZER VACCINE 2021-05-03 00:00:00 Completed [facility] SARS-COV-2 COVID-19 PFIZER VACCINE 2021-05-03 00:00:00 Completed [facility] SARS-COV-2 COVID-19 PFIZER VACCINE 2021-05-03 00:00:00 Completed [facility] SARS-COV-2 COVID-19 PFIZER VACCINE 2021-05-03 00:00:00 Completed [facility] SARS-COV-2 COVID-19 PFIZER VACCINE 2021-05-03 00:00:00 Completed [facility] SARS-COV-2 COVID-19 PFIZER VACCINE 2021-05-03 00:00:00 Completed [facility] SARS-COV-2 COVID-19 PFIZER VACCINE 2021-05-03 00:00:00 Completed [facility] SARS-COV-2 COVID-19 PFIZER VACCINE 2021-05-03 00:00:00 Completed [facility] SARS-COV-2 COVID-19 PFIZER VACCINE 2021-05-03 00:00:00 Completed [facility] SARS-COV-2 COVID-19 PFIZER VACCINE 2021-05-03 00:00:00 Completed [facility] SARS-COV-2 COVID-19 PFIZER VACCINE Unknown Completed [facility] SARS-COV-2 COVID-19 PFIZER VACCINE Unknown Completed [facility] SARS-COV-2 COVID-19 PFIZER BA-SUCROSE VACCINE (ROSE TOP) Unknown Completed [facility] Vital Signs Vital Name Observation Time Observation Value Comments S ource Systolic blood pressure 2023-08-12 21:00:00 130 mm[Hg] [facility] Diastolic blood pressure 2023-08-12 21:00:00 85 mm[Hg] [facility] Heart rate 2023-08-12 21:00:00 106 /min [facility] Respiratory rate 2023-08-12 21:00:00 14 /min [facility] Oxygen saturation in Arterial blood by Pulse oximetry 2023-08-12 21:00:00 95 /min [facility] Body temperature 2023-08-12 20:34:54 37.22 Rad[facility] Body height 2023-08-12 19:47:00 157.5 cm [facility] Body weight 2023-08-12 19:47:00 81.647 kg [facility] BMI 2023-08-12 19:47:00 32.92 kg/m2 [facility] WEIGHT 2023-06-16 05:26:00 86.047 kg HEIGHT 2023-06-13 [...] Systolic blood pressure 2022-12-11 20:00:00 142 mm[Hg] [facility] Diastolic blood pressure 2022-12-11 20:00:00 90 mm[Hg] [facility] Respiratory rate 2022-12-11 20:00:00 24 /min [facility] Heart rate 2022-12-11 18:00:00 101 /min [facility] Oxygen saturation in Arterial blood by Pulse oximetry 2022-12-11 18:00:00 93 /min [facility] BMI 2022-12-11 13:55:00 35.43 kg/m2 [facility] Body temperature 2022-12-11 13:55:00 37.22 Radha [facility] Body weight 2022-12-11 13:55:00 90.719 kg [facility] Systolic blood pressure 2022-11-18 05:34:00 152 mm[Hg] [facility] Diastolic blood pressure 2022-11-18 05:34:00 98 mm[Hg] [facility] Heart rate 2022-11-18 05:34:00 88 /min [facility] Respiratory rate 2022-11-18 05:34:00 18 /min [facility] Oxygen saturation in Arterial blood by Pulse oximetry 2022-11-18 05:34:00 97 /min [facility] Body temperature 2022-11-17 22:28:00 37.06 Radha [facility] Body height 2022-11-17 22:28:00 160 cm [facility] Body weight 2022-11-17 22:28:00 99.791 kg [facility] BMI 2022-11-17 22:28:00 38.97 kg/m2 [facility] Heart rate 2022-08-02 02:02:00 108 /min [facility] Respiratory rate 2022-08-02 02:02:00 28 /min [facility] Oxygen saturation in Arterial blood by Pulse oximetry 2022-08-02 02:02:00 97 /min [facility] Body temperature 2022-08-02 01:00:00 36.44 Radha [facility] Systolic blood pressure 2022-08-01 23:29:00 145 mm[Hg] [facility] Diastolic blood pressure 2022-08-01 23:29:00 103 mm[Hg] [facility] Body weight 2022-08-01 09:16:00 97.977 kg [facility] BMI 2022-08-01 09:16:00 38.26 kg/m2 [facility] Body height 2022-07-31 21:54:00 160 cm [facility] Systolic blood pressure 2022-05-08 16:40:00 146 mm[Hg] [facility] Diastolic blood pressure 2022-05-08 16:40:00 96 mm[Hg] [facility] Heart rate 2022-05-08 16:40:00 112 /min [facility] Body temperature 2022-05-08 16:40:00 36.78 Rad[facility] Respiratory rate 2022-05-08 16:40:00 18 /min [facility] Oxygen saturation in Arterial blood by Pulse oximetry 2022-05-08 16:40:00 94 /min [facility] Body height 2022-05-05 23:44:00 160 cm [facility] Body weight 2022-05-05 23:37:00 81.647 kg [facility] BMI 2022-05-05 23:37:00 31.89 kg/m2 [facility] Systolic blood pressure 2022-04-15 18:52:00 104 mm[Hg] [facility] Diastolic blood pressure 2022-04-15 18:52:00 82 mm[Hg] [facility] Heart rate 2022-04-15 18:52:00 114 /min [facility] Oxygen saturation in Arterial blood by Pulse oximetry 2022-04-15 18:52:00 98 /min [facility] [facility] Body temperature 2022-04-15 16:14:00 36.28 Radha [facility] Respiratory rate 2022-04-15 16:14:00 17 /min [facility] Body height 2022-04-13 21:08:00 160 cm [facility] Body weight 2022-04-13 21:08:00 91.173 kg [facility] BMI 2022-04-13 21:08:00 35.61 kg/m2 [facility] Systolic blood pressure 2021-11-23 21:30:00 132 mm[Hg] [facility] Diastolic blood pressure 2021-11-23 21:30:00 76 mm[Hg] [facility] Heart rate 2021-11-23 21:30:00 95 /min [facility] Respiratory rate 2021-11-23 21:30:00 13 /min [facility] Oxygen saturation in Arterial blood by Pulse oximetry 2021-11-23 21:30:00 97 /min [facility] Body temperature 2021-11-23 20:15:00 37.56 Radha [facility] Systolic blood pressure 2021-03-17 03:00:00 117 mm[Hg] [facility] Diastolic blood pressure 2021-03-17 03:00:00 76 mm[Hg] [facility] Heart rate 2021-03-17 03:00:00 104 /min [facility] Respiratory rate 2021-03-17 03:00:00 28 /min [facility] Oxygen saturation in Arterial blood by Pulse oximetry 2021-03-17 03:00:00 96 /min [facility] Body temperature 2021-03-17 00:39:00 37.11 Radha [facility] Body height 2021-03-17 00:39:00 160 cm [facility] Body weight 2021-03-17 00:39:00 58.968 kg [facility] BMI 2021-03-17 00:39:00 23.03 kg/m2 [facility] Systolic blood pressure 2021-03-15 00:14:00 149 mm[Hg] [facility] Diastolic blood pressure 2021-03-15 00:14:00 78 mm[Hg] [facility] Heart rate 2021-03-15 00:14:00 100 /min [facility] Body temperature 2021-03-15 00:14:00 37.33 Radha [facility] Respiratory rate 2021-03-15 00:14:00 24 /min [facility] Body height 2021-03-15 00:14:00 160 cm [facility] Body weight 2021-03-15 00:14:00 58.968 kg [facility] BMI 2021-03-15 00:14:00 23.03 kg/m2 [facility] Oxygen saturation in Arterial blood by Pulse oximetry 2021-03-15 00:14:00 98 /min [facility] Systolic blood pressure 2021-02-19 18:00:00 131 mm[Hg] [facility] Diastolic blood pressure 2021-02-19 18:00:00 80 mm[Hg] [facility] Heart rate 2021-02-19 18:00:00 83 /min [facility] Respiratory rate 2021-02-19 18:00:00 18 /min [facility] Oxygen saturation in Arterial blood by Pulse oximetry 2021-02-19 18:00:00 100 /min [facility] Body temperature 2021-02-19 15:47:00 37 Radha [facility] Body height 2021-02-19 15:47:00 160 cm [facility] 2021-02-19 15:47:00 58.968 kg [facility] BMI 2021-02-19 15:47:00 23.03 kg/m2 [facility] Heart rate 2023-06-16 17:00:00 108 /min [facility] Systolic blood pressure 2023-06-16 15:31:00 101 mm[Hg] [facility] Diastolic blood pressure 2023-06-16 15:31:00 81 mm[Hg] [facility] Body temperature 2023-06-16 15:31:00 36.61 Radha [facility] Respiratory rate 2023-06-16 15:31:00 18 /min [facility] Oxygen saturation in Arterial blood by Pulse oximetry 2023-06-16 15:31:00 94 /min [facility] Body weight 2023-06-16 05:26:00 86.047 kg [facility] BMI 2023-06-16 05:26:00 33.60 kg/m2 [facility] Body height 2023-06-13 04:00:00 160 cm [facility] Systolic blood pressure 2023-06-04 13:02:00 93 mm[Hg] [facility] Diastolic blood pressure 2023-06-04 13:02:00 57 mm[Hg] [facility] Heart rate 2023-06-04 13:02:00 101 /min [facility] Respiratory rate 2023-06-04 13:02:00 22 /min [facility] Oxygen saturation in Arterial blood by Pulse oximetry 2023-06-04 13:02:00 95 /min room air [facility] Body temperature 2023-06-04 11:46:00 35.28 Radha [facility] Systolic blood pressure 2023-05-28 16:00:00 154 mm[Hg] [facility] Diastolic blood pressure 2023-05-28 16:00:00 82 mm[Hg] [facility] Heart rate 2023-05-28 16:00:00 89 /min [facility] Body temperature 2023-05-28 16:00:00 36.67 Radha [facility] Respiratory rate 2023-05-28 16:00:00 16 /min [facility] Oxygen saturation in Arterial blood by Pulse oximetry 2023-05-28 16:00:00 97 /min [facility] Body height 2023-05-28 07:00:00 157.5 cm [facility] Body weight 2023-05-28 07:00:00 87.544 kg [facility] BMI 2023-05-28 07:00:00 35.30 kg/m2 [facility] Body height 2023-05-26 09:12:00 157.5 cm [facility] Body weight 2023-05-26 09:12:00 87.091 kg [facility] BMI 2023-05-26 09:12:00 35.12 kg/m2 [facility] Respiratory rate 2023-04-02 16:35:00 18 /min [facility] Oxygen saturation in Arterial blood by Pulse oximetry 2023-04-02 16:35:00 98 /min [facility] Systolic blood pressure 2023-04-02 12:00:00 147 mm[Hg] [facility] Diastolic blood pressure 2023-04-02 12:00:00 97 mm[Hg] [facility] Heart rate 2023-04-02 12:00:00 106 /min [facility] Body temperature 2023-04-02 12:00:00 36.28 Radha [facility] Body height 2023-03-30 02:14:00 157.5 cm [facility] Body weight 2023-03-30 02:14:00 92.08 kg [facility] BMI 2023-03-30 02:14:00 37.13 kg/m2 [facility] Respiratory rate 2022-08-03 14:40:00 18 /min [facility] Systolic blood pressure 2022-08-03 12:13:00 112 mm[Hg] [facility] Diastolic blood pressure 2022-08-03 12:13:00 77 mm[Hg] [facility] Heart rate 2022-08-03 12:13:00 115 /min [facility] Oxygen saturation in Arterial blood by Pulse oximetry 2022-08-03 12:13:00 93 /min [facility] Body temperature 2022-08-03 12:00:00 36.83 Radha [facility] Body height 2022-08-02 21:52:00 160.2 cm [facility] Body weight 2022-08-02 21:52:00 95 kg [facility] BMI 2022-08-02 21:52:00 37.02 kg/m2 [facility] BP Systolic 2022-07-24 13:31:00 136 [...] Date / Time Performed Performing Clinician Source LACTIC ACID WHOLE BLOOD 2023-08-12 20:31:00 Brian Bryan [facility] COMP. METABOLIC PANEL (60508) 2023-08-12 20:29:00 Brian Bryan [facility] CBC WITH DIFF 2023-08-12 20:29:00 Singer Brian [facility] CONSENT/REFUSAL FOR DIAGNOSI S AND TREATMENT 2023-08-12 19:43:16 Doctor Unassigned, Govan [facility] TRANSESOPHAGEAL ECHO 2023-06-16 11:05:00 Aydee Go [facility] T SPOT TB 2023-06-15 04:51[facility]-GLUCAN WITH REFLEX TO TITER 2023-06-15 04:51:00 Rossy [facility] ASPERGILLUS GALACTOMANNAN ANTIGEN 2023-06-15 04:51:00 Rossy [facility] VANCOMYCIN LEVEL, TROUGH 2023-06-15 04:51:00 Kaylene Mendosa [facility] T-SPOT(R).TB (QUEST) 2023-06-15 04:27:00 System, Provider Not In [facility] ECHO W CONTRAST & DOPPLER 2023-06-14 09:22:00 Aydee Go [facility] HEMOGLOBIN A1C 2023-06-14 04:08:00 Cara Burgess [facility] CBC (HEMOGRAM ONLY) 2023-06-14 04:08:00 [facility] BASIC METABOLIC PANEL 2023-06-14 04:08:00 [facility] CRYPTOCOCCAL ANTIGEN 2023-06-13 17:21:00 Rossy [facility] HC LAB HIV-1 AG W/HIV-1&2 AB 2023-06-13 17:21:00 [facility] D[facility]PL[facility] ARM, LEFT 2023-06-13 17:20:00 [facility] LEGIONELLA ANTIGEN, URINE 2023-06-13 17:00:00 [facility] SPUTUM CULTURE + GRAM STAIN 2023-06-13 14:33:00 [facility] MR LUMBAR SPINE WITH & WITHOUT IV CONTRAST 2023-06-13 13:03:47 Burt Nelson [facility] ECG 12-LEAD 2023-06-13 11:47:02 [facility] ECG 12-LEAD 2023-06-13 11:47:02 Unknown, Hl7 [facility] ECG 12-LEAD 2023-06-13 11:47:02 Unknown, Hl7 [facility] MRSA SCREEN 2023-06-13 09:19:00 [facility] CBC W/PLT COUNT & AUTO DIFFERENTIAL 2023-06-13 06:03:00 Cara Burgess [facility] COMPREHENSIVE METABOLIC PANEL 2023-06-13 06:03:00 [facility] PROTHROMBIN TIME/INR 2023-06-13 06:03:00 Cara Burgess [facility] CREATINE KINASE (CK) 2023-06-13 06:03:00 [facility] CBC W/PLT COUNT & AUTO DIFFERENTIAL 2023-06-13 06:03:00 Cara Burgess [facility] BLOOD CULTURE 2023-06-13 06:02:00 Cara Burgess [facility] CBC W/PLT COUNT & AUTO DIFFERENTIAL 2023-06-02 04:41:00 Kimberley Sunil [facility] BASIC METABOLIC PANEL 2023-06-02 04:41:00 [facility] 2023-06-02 04:41:00 Kimberley Sunil Suero [facility] PHOSPHORUS 2023-06-02 04:41:00 Kimberley Sunil [facility] CBC W/PLT COUNT & AUTO DIFFERENTIAL 2023-06-02 04:41:00 Kimberley Sunil [facility] XR SPINE LUMBAR 1 VIEW 2023-06-01 10:31:00 JoseAdam [facility] XR SPINE LUMBAR 1 VIEW 2023-06-01 09:46:00 JoseAdam [facility] LAMINECTOMY, SPINE, LUMBAR 2023-06-01 09:10:00 [place] [facility] PROCEDURE W/ C-ARM 2023-06-01 09:10:00 [place] [facility] LAMINECTOMY, SPINE, LUMBAR 2023-06-01 07:30:00 [place] [facility] PROCEDURE W/ C-ARM 2023-06-01 07:30:00 [place] Adam [facility] SCREEN, URINE 2023-06-01 04:33:00 JoseAdam [facility] BASIC METABOLIC PANEL 2023-05-31 22:55:00 Dallas Gomez [facility] CBC W/PLT COUNT & AUTO DIFFERENTIAL 2023-05-31 22:55:00 Patricia [facility] PT/APTT 2023-05-31 22:55:00 Dallas Gomez [facility] CBC W/PLT COUNT & AUTO DIFFERENTIAL 2023-05-31 22:55:00 Dallas Gomez [facility] CT NECK SOFT TISSUE WITHOUT IV CONTRAST 2023-05-31 09:39:30 Burt Nelson [facility] TYPE AND SCREEN, AUTOMATED 2023-05-31 09:13:00 [facility] BASIC METABOLIC PANEL 2023-05-29 06:43:00 [facility] CBC W/PLT COUNT & AUTO DIFFERENTIAL 2023-05-29 06:43:00 [facility] CBC W/PLT COUNT & AUTO DIFFERENTIAL 2023-05-29 06:43:00 [facility] XR SPINE CERVICAL 2 OR 3 VIEWS 2023-05-28 18:57:00 [facility] FL FLUORO NON-SPECIFIC UP TO 1 HOUR 2023-05-28 10:48:00 Jose [facility] FL FLUORO NON-SPECIFIC UP TO 1 HOUR 2023-05-28 10:07:00 Jose [facility] DISCECTOMY, SPINE, CERVICAL, ANTERIOR APPROACH, WITH FUSION 2023-05-28 08:15:00 Jose [facility] INSERTION, HARDWARE, SPINAL 2023-05-28 08:15:00 [place] [facility] PROCEDURE, ALLOGRAFT, FOR SPINE SURGERY 2023-05-28 08:15:00 [place] [facility] AUTOGRAFT FOR SPINE SURGERY 2023-05-28 08:15:00 [place] [facility] PROCEDURE W/ C-ARM 2023-05-28 08:15:00 [place] [facility] NEUROPHYSIOLOGIC MONITORING, INTRAOPERATIVE 2023-05-28 08:15:00 [place] [facility] PROCEDURE, USING OPERATING MICROSCOPE 2023-05-28 08:15:00 [place] [facility] HCG, QUANTITATIVE, 2023-05-28 07:42:00 Yue Bui [facility] TYPE AND SCREEN, AUTOMATED 2023-05-28 07:42:00 Quin Scruggs [facility] XR CHEST 1 VIEW PORTABLE / BEDSIDE 2023-04-01 15:32:16 Thomas Lozoya [facility] B-TYPE NATRIURETIC FACTOR (BNP) 2023-04-01 13:32:00 Thomas Lozoya [facility] ECHO W CONTRAST & DOPPLER 2023-03-31 20:18:37 [facility] MR CERVICAL SPINE WITHOUT IV CONTRAST 2023-03-31 09:25:00 Selin Lewis [facility] CBC (HEMOGRAM ONLY) 2023-03-31 03:45:00 [facility] COMPREHENSIVE METABOLIC PANEL 2023-03-31 03:45:00 [facility] ARTERIAL DOPPLER LEGS BILATERAL 2023-03-30 15:45[facility]HA[facility]/ DOPPLER) ONLY 2023-03-30 15:44:00 [facility] ECG 12-LEAD 2023-03-30 13:06:22 [facility] ECG 12-LEAD 2023-03-30 13:06:22 Unknown, Hl7 [facility] ECG 12-LEAD 2023-03-30 13:06:22 Unknown, Hl7 [facility] MR THORACIC SPINE WITHOUT IV CONTRAST 2023-03-30 12:29:58 [facility] MR LUMBAR SPINE WITHOUT IV CONTRAST 2023-03-30 11:58:00 Eric [facility] EEG AWAKE AND DROWSY 2023-03-30 09:57:53 Berry [facility] VALPROIC ACID LEVEL, TOTAL 2023-03-30 09:06:00 Berry [facility] URINALYSIS W/ REFLEX URINE CULTURE 2023-03-30 03:54:00 [facility] CBC (HEMOGRAM ONLY) 2023-03-30 03:52:00 [facility] COMPREHENSIVE METABOLIC PANEL 2023-03-30 03:52:00 Mariah Aldridge [facility] HEMOGLOBIN A1C 2023-03-30 03:52:00 PeteMariah chaudhary [facility] PT/APTT 2023-03-30 03:52:00 ValerioThomasmacho [facility] EKG-SCANNED 2023-03-29 00:00:00 Provider, Default Scanning [facility] CT HEAD WO CONTRAST 2022-12-11 18:36:49 Alfonso Alvarado [facility] URINE DRUG (IMMUNOASSAY) - COMPREHENSIVE DRUG SCREEN 2022-12-11 17:13:00 Alfonso Alvarado [facility] URINALYSIS 2022-12-11 17:13:00 Alfonso Alvarado [facility] CT CHEST PULMONARY ANGIOGRAM 2022-12-11 16:26:39 Alfonso Alvarado [facility] MAGNESIUM 2022-12-11 14:57:00 Alfonso Alvarado [facility] COMP. METABOLIC PANEL (89108) 2022-12-11 14:57:00 Alfonso Alvarado Lorelei [facility] D-DIMER 2022-12-11 14:15:00 Alfonso Alvarado Lorelei [facility] XR CHEST 1 VW 2022-12-11 14:10:26 Alfonso Alvarado Lorelei [facility] TROPONIN I 2022-12-11 14:02:00 Alfonso Alvarado Lorelei [facility] CBC WITH DIFF 2022-12-11 14:02:00 Alfonso Alvarado Lorelei [facility] N-TERMINAL PRO-BNP 2022-12-11 14:02:00 Alfonso Alvarado Lorelei [facility] HB ECG ROUTINE & RHYTHM STRIP 2022-12-11 14:01:08 Alfnoso Alvarado [facility] CONSENT/REFUSAL FOR DIAGNOSI S AND TREATMENT 2022-12-11 13:52:01 Doctor Unassigned, Govan [facility] ECG 12-LEAD 2022-08-03 05:03:32 Unknown, Hl7 Doctor [facility] ECG 12-LEAD 2022-08-03 05:03:32 Unknown, Hl7 Doctor [facility] LIPID PANEL 2022-08-02 21:14:00 [facility] TSH/FREE T4 IF INDICATED 2022-08-02 21:14:00 [facility] VITAMIN B12 2022-08-02 21:14:00 [facility] HEMOGLOBIN A1C 2022-08-02 21:14:00 [facility] COMPREHENSIVE METABOLIC PANEL 2022-08-02 21:14:00 [facility] CBC W/PLT COUNT & AUTO DIFFERENTIAL 2022-08-02 21:14:00 [facility] RPR 2022-08-02 21:14:00 [facility] HC LAB HIV-1 AG W/HIV-1&2 AB 2022-08-02 21:14:00 [facility] C-REACTIVE PROTEIN 2022-08-02 21:14:[address] [place] [facility] CBC W/PLT COUNT & AUTO DIFFERENTIAL 2022-08-02 21:14:00 [facility] EKG-SCANNED 2022-08-02 00:00:00 Provider, Default Scanning [facility] CT HEAD WO CONTRAST 2022-08-01 23:52:15 Lorenza Lowry [facility] GALV ONLY - INFLUENZA A B RS V PCR 2022-08-01 18:28:00 Letitia Chambers [facility] TRANSTHORACIC ECHO (TTE) COMPLETE W/ CONTRAST 2022-08-01 14:42:00 Kylee Montez [facility] MAGNESIUM 2022-08-01 10:42:00 Lorenza Lowry [facility] BASIC METABOLIC PANEL (NA, K , CL, CO2, GLUCOSE, BUN, CREATININE, CA) 2022-08-01 10:42:00 Lorenza Lowry [facility] CBC WITH DIFF 2022-08-01 10:42:00 Lorenza Lowry [facility] N-TERMINAL PRO-BNP 2022-08-01 10:42:00 Kylee Montez [facility] POCT GLUCOSE (AUTOMATED) 2022-08-01 06:56:00 Lorenza Lowry [facility] CRITICAL CARE 2022-07-31 22:31:36 Sav Rondon [facility] URINALYSIS 2022-07-31 20:52:00 Sav Rondon [facility] URINE DRUG (IMMUNOASSAY) - COMPREHENSIVE DRUG SCREEN W/O REFLEX 2022-07-31 20:52:00 Sav Rondon [facility] XR CHEST 1 VW 2022-07-31 18:45:17 Sav Rondon [facility] LIPASE 2022-07-31 17:58:00 [facility] 2022-07-31 17:58:00 [facility] COMP. METABOLIC PANEL ([id number]) 2022-07-31 17:58:00 [facility] WITH DIFF 2022-07-31 17:58:00 Alcon [facility] PROTHROMBIN TIME / INR 2022-07-31 17:58:00 [facility] ACTIV[facility] PARTIAL THRMPLAS DAVID 2022-07-31 17:58:00 Alcon [facility] N-TERMINAL PRO-BNP 2022-07-31 17:58:00 [facility] ROUTINE & RHYTHM STRIP 2022-07-31 17:46:28 Alcon [facility] NOTICE OF PRIVACY PRACTICES 2022-07-31 17:35:38 Doctor Unassigned, Govan [facility] CONSENT/REFUSAL FOR DIAGNOSI S AND TREATMENT 2022-07-31 17:35:13 Doctor Unassigned, Govan [facility] PHOSPHORUS 2022-05-08 05:51:[address] [facility] MAGNESIUM 2022-05-08 05:51:[address] [facility] BASIC METABOLIC PANEL (NA, K , CL, CO2, GLUCOSE, BUN, CREATININE, CA) 2022-05-08 05:51:[address] [facility] CBC WITH DIFF 2022-05-08 05:51:[address] [facility] BASIC METABOLIC PANEL (NA, K , CL, CO2, GLUCOSE, BUN, CREATININE, CA) 2022-05-07 07:09:00 John Cintron [facility] CBC WITH DIFF 2022-05-07 07:09:00 John Cintron [facility] POCT GLUCOSE (AUTOMATED) 2022-05-07 01:16:00 Brandyn Ibrahim [facility] HB ABO GROUPING 2022-05-06 05:07:00 Ismael Dunn [facility] BASIC METABOLIC PANEL (NA, K , CL, CO2, GLUCOSE, BUN, CREATININE, CA) 2022-05-06 05:04:[address] [facility] CBC WITH DIFF 2022-05-06 05:04:[address] [facility] KEPPRA (LEVETIRACETAM) 2022-05-06 05:04:[address] [facility] MR LUMBAR SPINE WO CONTRAST 2022-05-06 02:54:37 Ender Monet [facility] ELECTROENCEPHALOGRAM 2022-05-06 00:00:00 John Cintron [facility] BASIC METABOLIC PANEL (NA, K , CL, CO2, GLUCOSE, BUN, CREATININE, CA) 2022-05-05 07:57:00 [facility] 2022-05-05 07:57:00 Ismael Dunn [facility] PROTHROMBIN TIME / INR 2022-05-05 07:57:00 Ismael Dunn [facility] ACTIVATED PARTIAL THRMPLAS DAVID 2022-05-05 07:57:00 Ismael Dunn [facility] FIBRINOGEN 2022-05-05 07:57:00 Ismael Dunn [facility] EMERGENCY SERVICES AGREEMENT S AND AUTHORIZATIONS 2022-05-04 05:01:00 Doctor Unassigned, Govan [facility] VITAMIN D, 25-OH 2022-04-15 16:53:00 Sen Toledo [facility] MR THORACIC SPINE WO CONTRAST 2022-04-15 11:56:19 Lobaina, [facility] MR CERVICAL SPINE WO CONTRAST 2022-04-15 11:20:00 Harshil [facility] BASIC METABOLIC PANEL (NA, K , CL, CO2, GLUCOSE, BUN, CREATININE, CA) 2022-04-15 10:36:00 Charmaine Morataya [facility] TEST, URINE 2022-04-15 04:39:00 Harshil [facility] URINE DRUG (IMMUNOASSAY) - COMPREHENSIVE DRUG SCREEN 2022-04-15 04:39:00 Harshil [facility] URINALYSIS 2022-04-15 04:39:00 Harshil [facility] TRANSTHORACIC ECHO (TTE) COMPLETE W/ CONTRAST 2022-04-14 16:37:03 Harshil [facility] KEPPRA (LEVETIRACETAM) 2022-04-14 15:30:00 Harshil [facility] MAGNESIUM 2022-04-14 10:03:00 Harshil [facility] BASIC METABOLIC PANEL (NA, K , CL, CO2, GLUCOSE, BUN, CREATININE, CA) 2022-04-14 10:03:00 Harshil [facility] MR LUMBAR SPINE WO CONTRAST 2022-04-14 02:48:12 Harshil [facility] MR STROKE BRAIN WO CONTRAST 2022-04-14 02:29:[address] [facility] [address] STROKE ANGIOGRAM HEAD 2022-04-13 18:40:00 Sapna Vargas [facility] CT STROKE ANGIOGRAM NECK 2022-04-13 18:40:00 Sapna Vargas [facility] CT STROKE HEAD WO CONTRAST 2022-04-13 18:36:00 Sapna Vargas [facility] TROPONIN I 2022-04-13 18:17:00 Sapna Vargas [facility] THYROID STIMULATING HORMONE 2022-04-13 18:17:00 Harshil [facility] BASIC METABOLIC PANEL (NA, K , CL, CO2, GLUCOSE, BUN, CREATININE, CA) 2022-04-13 18:17:00 Sapna Vargas [facility] LIPID PANEL ([id number])(TOTAL CHOLESTEROL, TRIGLYCERIDES, HDL) 2022-04-13 18:17:00 Harshil Soumya [facility] CBC WITHOUT DIFF 2022-04-13 18:17:00 Sapna Vargas [facility] GLYCOSYLATED HEMOGLOBIN (A1C) 2022-04-13 18:17:00 Soumya Chua [facility] PROTHROMBIN TIME / INR 2022-04-13 18:17:00 Sapna Vargas [facility] ACTIVATED PARTIAL THRMPLAS DAVID 2022-04-13 18:17:00 Sapna Vargas [facility] COVID-19 (ID NOW RAPID TESTING) 2022-04-13 18:17:00 Sapna Vargas [facility] LAB ONLY COVID INTERPRETATION 2022-04-13 18:17:00 Sapna Vargas [facility] HB ECG ROUTINE & RHYTHM STRIP 2022-04-13 18:15:49 Sapna Vargas [facility] CONSENT/REFUSAL FOR DIAGNOSI S AND TREATMENT 2022-04-13 18:05:14 Doctor Unassigned, Govan [facility] HOSPITAL ADMISSION 2022-04-13 05:01:00 Doctor Unassigned, Govan [facility] SARS-COV-2 COVID-19 VACCINE 12 YRS+,0.3ML,IM (PFIZER - [facility]) 2022-02-19 15:21:12 Doctor Unassigned, Govan [facility] URINE DRUG (IMMUNOASSAY) - COMPREHENSIVE DRUG SCREEN W/O REFLEX 2021-11-23 21:21:00 Nichelle Virk [facility] CT HEAD WO CONTRAST 2021-11-23 20:58:00 Nichelle Virk [facility] POCT TEST 2021-11-23 20:46:00 Nichelle Virk [facility] URINALYSIS 2021-11-23 20:43:00 Nichelle Virk [facility] LIPASE 2021-11-23 20:27:00 Nichelle Virk [facility] TROPONIN I 2021-11-23 20:27:00 Nichelle Virk [facility] COMP. METABOLIC PANEL ([id number]) 2021-11-23 20:27:00 Nichelle Virk [facility] CBC WITH DIFF 2021-11-23 20:27:00 Nichelle Virk [facility] POCT GLUCOSE (AUTOMATED) 2021-11-23 20:15:00 Doctor Unassigned, Govan [facility] SARS-COV-2 COVID-19 VACCINE,0.3ML,IM (PFIZER) 2021-05-24 14:23:12 Doctor Unassigned, Govan [facility] SARS-COV-2 COVID-19 VACCINE,0.3ML,IM (PFIZER) 2021-05-03 14:59:29 Doctor Unassigned, Govan [facility] EMERGENCY SERVICES AGREEMENT S AND AUTHORIZATIONS 2021-04-16 05:01:00 Doctor Unassigned, Govan [facility] URINALYSIS 2021-03-17 03:09:00 Fabrice Chakraborty [facility] XR CHEST 1 VW 2021-03-17 01:45:07 [facility] TROPONIN I 2021-03-17 01:35:00 [facility] COMP. METABOLIC PANEL ([id number]) 2021-03-17 01:35:00 Fabrice Chakraborty [facility] CBC WITH DIFF 2021-03-17 01:35:00 [facility] N-TERMINAL PRO-BNP 2021-03-17 01:35:00 Fabrice Chakraborty [facility] COVID-19 (ID NOW RAPID TESTING) 2021-03-17 00:58:00 Brian Bryan [facility] CONSENT/REFUSAL FOR DIAGNOSI S AND TREATMENT 2021-03-17 00:32:59 Doctor Unassigned, Govan [facility] COVID-19 (ID NOW RAPID TESTING) 2021-02-19 17:04:00 Anali Monroy [facility] CT ABDOMEN PELVIS W CONTRAST 2021-02-19 16:41:18 Anali Monroy [facility] LIPASE 2021-02-19 15:58:00 Anali Monroy [facility] COMP. METABOLIC PANEL ([id number]) 2021-02-19 15:58:00 Anali Monroy [facility] CBC WITH DIFF 2021-02-19 15:58:00 Anali Monroy [facility] URINALYSIS 2021-02-19 15:58:00 Anali Monroy [facility] NOTICE OF PRIVACY PRACTICES 2021-02-19 15:30:46 Doctor Unassigned, [facility] CONSENT/REFUSAL FOR DIAGNOSI S AND TREATMENT 2021-02-19 15:30:30 Doctor Unassigned, [facility] Plan of Care Planned Activity Planned Date Details Comments Source Future Scheduled Test 2025-08-02 00:00:00 Lipid panel (procedure) [code = 04175490] [facility] Future Scheduled Test 2025-08-02 00:00:00 Lipid panel (procedure) [code = 77731423] [facility] Future Scheduled Test 2025-08-02 00:00:00 Lipid panel (procedure) [code = 01486720] [facility] Future Scheduled Test 2025-08-02 00:00:00 Lipid panel (procedure) [code = 35276769] [facility] Future Scheduled Test 2025-08-02 00:00:00 Lipid panel (procedure) [code = 27161386] [facility] Future Scheduled Test 2025-08-02 00:00:00 Lipid panel (procedure) [code = 13639324] [facility] Future Scheduled Test 2025-08-02 00:00:00 Lipid panel (procedure) [code = 03992038] [facility] Future Scheduled Test 2025-08-02 00:00:00 Lipid panel (procedure) [code = 52591441] [facility] Future Scheduled Test 2025-08-02 00:00:00 Lipid panel (procedure) [code = 12950995] [facility] Future Scheduled Test 2025-08-02 00:00:00 Lipid panel (procedure) [code = 27319402] [facility] Future Scheduled Test 2025-08-02 00:00:00 Lipid panel (procedure) [code = 24695345] [facility] Future Scheduled Test 2025-08-02 00:00:00 Lipid panel (procedure) [code = 95734470] [facility] Future Scheduled Test 2025-08-02 00:00:00 Lipid panel (procedure) [code = 28273909] [facility] Future Scheduled Test 2025-08-02 00:00:00 Lipid panel (procedure) [code = 49406664] [facility] Future Scheduled Test 2025-08-02 00:00:00 Lipid panel (procedure) [code = 96282442] [facility] Future Scheduled Test 2025-08-02 00:00:00 Lipid panel (procedure) [code = 71080393] [facility] Future Scheduled Test 2025-08-02 00:00:00 Lipid panel (procedure) [code = 67340782] [facility] Future Scheduled Test 2025-08-02 00:00:00 Lipid panel (procedure) [code = 21160356] [facility] Future Scheduled Test 2025-08-02 00:00:00 Lipid panel (procedure) [code = 34249294] [facility] Future Scheduled Test 2025-08-02 00:00:00 Lipid panel (procedure) [code = 64040860] [facility] Future Scheduled Test 2025-08-02 00:00:00 Lipid panel (procedure) [code = 26481701] [facility] Future Scheduled Test 2025-08-02 00:00:00 Lipid panel (procedure) [code = 57513763] [facility] Future Scheduled Test 2025-08-02 00:00:00 Lipid panel (procedure) [code = 53611447] [facility] Future Scheduled Test 2025-08-02 00:00:00 Lipid panel (procedure) [code = 08892382] [facility] Future Scheduled Test 2025-08-02 00:00:00 Lipid panel (procedure) [code = 86370706] [facility] Future Scheduled Test 2025-08-02 00:00:00 Lipid panel (procedure) [code = 52561768] [facility] Future Scheduled Test 2025-08-02 00:00:00 Lipid panel (procedure) [code = 48746385] [facility] Future Scheduled Test 2025-08-02 00:00:00 Lipid panel (procedure) [code = 88496173] [facility] Future Scheduled Test 2025-08-02 00:00:00 Lipid panel (procedure) [code = 27067547] [facility] Future Scheduled Test 2025-08-02 00:00:00 Lipid panel (procedure) [code = 97781659] [facility] Future Scheduled Test 2025-08-02 00:00:00 Lipid panel (procedure) [code = 46019878] [facility] Future Scheduled Test 2025-08-02 00:00:00 Lipid panel (procedure) [code = 56985473] [facility] Future Scheduled Test 2025-08-02 00:00:00 Lipid panel (procedure) [code = 07081597] [facility] Future Scheduled Test 2025-08-02 00:00:00 Lipid panel (procedure) [code = 62364449] [facility] Future Scheduled Test 2025-08-02 00:00:00 Lipid panel (procedure) [code = 27601417] [facility] Future Scheduled Test 2025-08-02 00:00:00 Lipid panel (procedure) [code = 09966832] [facility] Future Scheduled Test 2025-08-02 00:00:00 Lipid panel (procedure) [code = 48339668] [facility] Future Scheduled Test 2025-08-02 00:00:00 Lipid panel (procedure) [code = 80978403] [facility] Future Scheduled Test 2025-08-02 00:00:00 Lipid panel (procedure) [code = 96483545] [facility] Future Scheduled Test 2025-08-02 00:00:00 Lipid panel (procedure) [code = 96606358] [facility] Future Scheduled Test 2025-08-02 00:00:00 Lipid panel (procedure) [code = 92893854] [facility] Future Scheduled Test 2025-08-02 00:00:00 Lipid panel (procedure) [code = 78779148] [facility] Future Scheduled Test 2024-05-28 00:00:00 Tobacco Cessation Counseling and Screening (12+) [code = Tobacco Cessation Counseling and Screening (12+)] [facility] Future Scheduled Test 2024-05-28 00:00:00 Tobacco Cessation Counseling and Screening (12+) [code = Tobacco Cessation Counseling and Screening (12+)] [facility] Scheduled Test 2024-05-28 00:00:00 Tobacco Cessation Counseling and Screening (12+) [code = Tobacco Cessation Counseling and Screening (12+)] [facility] Scheduled Test 2024-05-28 00:00:00 Tobacco Cessation Counseling and Screening (12+) [code = Tobacco Cessation Counseling and Screening (12+)] [facility] Scheduled Test 2024-05-28 00:00:00 Tobacco Cessation Counseling and Screening (12+) [code = Tobacco Cessation Counseling and Screening (12+)] [facility] Scheduled Test 2024-05-28 00:00:00 Tobacco Cessation Counseling and Screening (12+) [code = Tobacco Cessation Counseling and Screening (12+)] [facility] Scheduled Test 2024-05-28 00:00:00 Tobacco Cessation Counseling and Screening (12+) [code = Tobacco Cessation Counseling and Screening (12+)] [facility] Scheduled Test 2024-05-28 00:00:00 Tobacco Cessation Counseling and Screening (12+) [code = Tobacco Cessation Counseling and Screening (12+)] [facility] Scheduled Test 2024-05-28 00:00:00 Tobacco Cessation Counseling and Screening (12+) [code = Tobacco Cessation Counseling and Screening (12+)] [facility] Future Scheduled Test 2024-05-28 00:00:00 Tobacco Cessation Counseling and Screening (12+) [code = Tobacco Cessation Counseling and Screening (12+)] [facility] Scheduled Test 2024-05-28 00:00:00 Tobacco Cessation Counseling and Screening (12+) [code = Tobacco Cessation Counseling and Screening (12+)] [facility] Scheduled Test 2024-05-28 00:00:00 Tobacco Cessation Counseling and Screening (12+) [code = Tobacco Cessation Counseling and Screening (12+)] [facility] Future Scheduled Test 2024-05-28 00:00:00 Tobacco Cessation Counseling and Screening (12+) [code = Tobacco Cessation Counseling and Screening (12+)] [facility] Future Scheduled Test 2024-05-28 00:00:00 Tobacco Cessation Counseling and Screening (12+) [code = Tobacco Cessation Counseling and Screening (12+)] [facility] Scheduled Test 2024-05-28 00:00:00 Tobacco Cessation Counseling and Screening (12+) [code = Tobacco Cessation Counseling and Screening (12+)] [facility] Scheduled Test 2024-05-28 00:00:00 Tobacco Cessation Counseling and Screening (12+) [code = Tobacco Cessation Counseling and Screening (12+)] [facility] Scheduled Test 2024-05-28 00:00:00 Tobacco Cessation Counseling and Screening (12+) [code = Tobacco Cessation Counseling and Screening (12+)] [facility] Scheduled Test 2024-05-26 00:00:00 Tobacco Cessation Counseling and Screening (12+) [code = Tobacco Cessation Counseling and Screening (12+)] [facility] Scheduled Test 2024-05-26 00:00:00 Tobacco Cessation Counseling and Screening (12+) [code = Tobacco Cessation Counseling and Screening (12+)] [facility] Scheduled Test 2023-07-20 00:00:00 DEPRESSION SCREENING (12+) [code = DEPRESSION SCREENING (12+)] [facility] Future Scheduled Test 2023-07-20 00:00:00 DEPRESSION SCREENING (12+) [code = DEPRESSION SCREENING (12+)] [facility] Future Scheduled Test 2023-07-20 00:00:00 DEPRESSION SCREENING (12+) [code = DEPRESSION SCREENING (12+)] [facility] Future Scheduled Test 2023-07-20 00:00:00 DEPRESSION SCREENING (12+) [code = DEPRESSION SCREENING (12+)] [facility] Future Scheduled Test 2023-07-20 00:00:00 DEPRESSION SCREENING (12+) [code = DEPRESSION SCREENING (12+)] [facility] Future Scheduled Test 2023-07-20 00:00:00 DEPRESSION SCREENING (12+) [code = DEPRESSION SCREENING (12+)] [facility] Future Scheduled Test 2023-07-20 00:00:00 DEPRESSION SCREENING (12+) [code = DEPRESSION SCREENING (12+)] [facility] Future Scheduled Test 2023-07-20 00:00:00 DEPRESSION SCREENING (12+) [code = DEPRESSION SCREENING (12+)] [facility] Future Scheduled Test 2023-07-20 00:00:00 DEPRESSION SCREENING (12+) [code = DEPRESSION SCREENING (12+)] [facility] Future Scheduled Test 2023-03-20 00:00:00 INFLUENZA VACCINE (Season Ended) [code = INFLUENZA VACCINE (Season Ended)] [facility] Future Scheduled Test 2023-03-20 00:00:00 INFLUENZA VACCINE (Season Ended) [code = INFLUENZA VACCINE (Season Ended)] [facility] Future Scheduled Test 2023-03-20 00:00:00 INFLUENZA VACCINE (Season Ended) [code = INFLUENZA VACCINE (Season Ended)] [facility] Future Scheduled Test 2023-03-20 00:00:00 INFLUENZA VACCINE (Season Ended) [code = INFLUENZA VACCINE (Season Ended)] [facility] Future Scheduled Test 2023-03-20 00:00:00 INFLUENZA VACCINE (Season Ended) [code = INFLUENZA VACCINE (Season Ended)] [facility] Future Scheduled Test 2023-03-20 00:00:00 INFLUENZA VACCINE (Season Ended) [code = INFLUENZA VACCINE (Season Ended)] [facility] Future Scheduled Test 2023-03-20 00:00:00 Influenza Vaccine (Season Ended) [code = Influenza Vaccine (Season Ended)] [facility] Future Scheduled Test 2023-03-20 00:00:00 Influenza Vaccine (Season Ended) [code = Influenza Vaccine (Season Ended)] [facility] Future Scheduled Test 2023-03-20 00:00:00 Influenza Vaccine (#1) [code = Influenza Vaccine (#1)] [facility] Future Scheduled Test 2023-03-20 00:00:00 Influenza Vaccine (#1) [code = Influenza Vaccine (#1)] [facility] Future Scheduled Test 2023-03-20 00:00:00 Influenza Vaccine (#1) [code = Influenza Vaccine (#1)] [facility] Future Scheduled Test 2023-03-20 00:00:00 Influenza Vaccine (#1) [code = Influenza Vaccine (#1)] [facility] Future Scheduled Test 2023-03-20 00:00:00 COVID-19 VACCINE ( season) [code = COVID-19 VACCINE ()] [facility] Future Scheduled Test 2023-03-20 00:00:00 Influenza Vaccine (#1) [code = Influenza Vaccine (#1)] [facility] Future Scheduled Test 2023-03-20 00:00:00 COVID-19 VACCINE () [code = COVID-19 VACCINE ()] [facility] Future Scheduled Test 2023-03-20 00:00:00 Influenza Vaccine (#1) [code = Influenza Vaccine (#1)] [facility] Future Scheduled Test 2023-03-20 00:00:00 COVID-19 VACCINE () [code = COVID-19 VACCINE ()] [facility] Future Scheduled Test 2023-03-20 00:00:00 Influenza Vaccine (#1) [code = Influenza Vaccine (#1)] [facility] Future Scheduled Test 2023-03-20 00:00:00 COVID-19 VACCINE () [code = COVID-19 VACCINE ()] [facility] Future Scheduled Test 2023-03-20 00:00:00 Influenza Vaccine (#1) [code = Influenza Vaccine (#1)] [facility] Future Scheduled Test 2023-03-20 00:00:00 Influenza Vaccine (#1) [code = Influenza Vaccine (#1)] [facility] Future Scheduled Test 2023-03-20 00:00:00 COVID-19 VACCINE () [code = COVID-19 VACCINE ()] [facility] Future Scheduled Test 2023-03-20 00:00:00 Influenza Vaccine (#1) [code = Influenza Vaccine (#1)] [facility] Future Scheduled Test 2023-03-20 00:00:00 COVID-19 VACCINE () [code = COVID-19 VACCINE ()] [facility] Future Scheduled Test 2023-03-20 00:00:00 Influenza Vaccine (#1) [code = Influenza Vaccine (#1)] [facility] Future Scheduled Test 2023-03-20 00:00:00 COVID-19 VACCINE ( season) [code = COVID-19 VACCINE ()] [facility] Future Scheduled Test 2023-03-20 00:00:00 Influenza Vaccine (#1) [code = Influenza Vaccine (#1)] [facility] Future Scheduled Test 2023-03-20 00:00:00 COVID-19 VACCINE () [code = COVID-19 VACCINE ()] [facility] Future Scheduled Test 2023-03-20 00:00:00 Influenza Vaccine (#1) [code = Influenza Vaccine (#1)] [facility] Future Scheduled Test 2023-03-20 00:00:00 COVID-19 VACCINE ( season) [code = COVID-19 VACCINE ()] [facility] Future Scheduled Test 2023-03-20 00:00:00 Influenza Vaccine (#1) [code = Influenza Vaccine (#1)] [facility] Future Scheduled Test 2023-03-20 00:00:00 COVID-19 VACCINE ( season) [code = COVID-19 VACCINE ( season)] [facility] Future Scheduled Test 2023-03-20 00:00:00 Influenza Vaccine (#1) [code = Influenza Vaccine (#1)] [facility] Future Scheduled Test 2023-03-20 00:00:00 Influenza Vaccine (#1) [code = Influenza Vaccine (#1)] [facility] Future Scheduled Test 2023-03-20 00:00:00 Influenza Vaccine (#1) [code = Influenza Vaccine (#1)] [facility] Future Scheduled Test 2023-03-20 00:00:00 Influenza Vaccine (#1) [code = Influenza Vaccine (#1)] [facility] Future Scheduled Test 2023-03-20 00:00:00 Influenza Vaccine (#1) [code = Influenza Vaccine (#1)] [facility] Future Scheduled Test 2023-03-20 00:00:00 Influenza Vaccine (#1) [code = Influenza Vaccine (#1)] [facility] Future Scheduled Test 2023-03-20 00:00:00 Influenza Vaccine (#1) [code = Influenza Vaccine (#1)] [facility] Future Scheduled Test 2023-03-20 00:00:00 Influenza Vaccine (#1) [code = Influenza Vaccine (#1)] [facility] Future Scheduled Test 2023-03-20 00:00:00 Influenza Vaccine (#1) [code = Influenza Vaccine (#1)] [facility] Future Scheduled Test 2023-03-20 00:00:00 Influenza Vaccine (#1) [code = Influenza Vaccine (#1)] [facility] Future Scheduled Test 2023-03-20 00:00:00 Influenza Vaccine (#1) [code = Influenza Vaccine (#1)] [facility] Future Scheduled Test 2023-03-20 00:00:00 Influenza Vaccine (#1) [code = Influenza Vaccine (#1)] [facility] Future Scheduled Test 2023-03-20 00:00:00 Influenza Vaccine (#1) [code = Influenza Vaccine (#1)] [facility] Future Scheduled Test 2023-03-20 00:00:00 Influenza Vaccine (#1) [code = Influenza Vaccine (#1)] [facility] Future Scheduled Test 2023-03-20 00:00:00 Influenza Vaccine (#1) [code = Influenza Vaccine (#1)] [facility] Future Scheduled Test 2023-03-20 00:00:00 COVID-19 VACCINE ( season) [code = COVID-19 VACCINE ( season)] [facility] Future Scheduled Test 2023-03-20 00:00:00 COVID-19 VACCINE ( season) [code = COVID-19 VACCINE ()] [facility] Future Scheduled Test 2023-03-20 00:00:00 Influenza Vaccine (#1) [code = Influenza Vaccine (#1)] [facility] Future Scheduled Test 2022-07-20 00:00:00 DEPRESSION SCREENING (12+) [code = DEPRESSION SCREENING (12+)] [facility] Future Scheduled Test 2022-07-20 00:00:00 DEPRESSION SCREENING (12+) [code = DEPRESSION SCREENING (12+)] [facility] Future Scheduled Test 2022-07-20 00:00:00 DEPRESSION SCREENING (12+) [code = DEPRESSION SCREENING (12+)] [facility] Future Scheduled Test 2022-07-20 00:00:00 DEPRESSION SCREENING (12+) [code = DEPRESSION SCREENING (12+)] [facility] Future Scheduled Test 2022-07-20 00:00:00 DEPRESSION SCREENING (12+) [code = DEPRESSION SCREENING (12+)] [facility] Future Scheduled Test 2022-07-20 00:00:00 DEPRESSION SCREENING (12+) [code = DEPRESSION SCREENING (12+)] [facility] Future Scheduled Test 2022-07-20 00:00:00 DEPRESSION SCREENING (12+) [code = DEPRESSION SCREENING (12+)] [facility] Future Scheduled Test 2022-07-20 00:00:00 DEPRESSION SCREENING (12+) [code = DEPRESSION SCREENING (12+)] [facility] Future Scheduled Test 2022-07-20 00:00:00 DEPRESSION SCREENING (12+) [code = DEPRESSION SCREENING (12+)] [facility] Future Scheduled Test 2022-07-20 00:00:00 DEPRESSION SCREENING (12+) [code = DEPRESSION SCREENING (12+)] [facility] Future Scheduled Test 2022-07-20 00:00:00 DEPRESSION SCREENING (12+) [code = DEPRESSION SCREENING (12+)] [facility] Future Scheduled Test 2022-07-20 00:00:00 DEPRESSION SCREENING (12+) [code = DEPRESSION SCREENING (12+)] [facility] Future Scheduled Test 2022-07-20 00:00:00 DEPRESSION SCREENING (12+) [code = DEPRESSION SCREENING (12+)] [facility] Future Scheduled Test 2022-07-20 00:00:00 DEPRESSION SCREENING (12+) [code = DEPRESSION SCREENING (12+)] [facility] Future Scheduled Test 2022-07-20 00:00:00 DEPRESSION SCREENING (12+) [code = DEPRESSION SCREENING (12+)] [facility] Future Scheduled Test 2022-07-20 00:00:00 DEPRESSION SCREENING (12+) [code = DEPRESSION SCREENING (12+)] [facility] Future Scheduled Test 2022-07-20 00:00:00 DEPRESSION SCREENING (12+) [code = DEPRESSION SCREENING (12+)] [facility] Future Scheduled Test 2022-07-20 00:00:00 DEPRESSION SCREENING (12+) [code = DEPRESSION SCREENING (12+)] [facility] Future Scheduled Test 2022-07-20 00:00:00 DEPRESSION SCREENING (12+) [code = DEPRESSION SCREENING (12+)] [facility] Future Scheduled Test 2022-07-20 00:00:00 DEPRESSION SCREENING (12+) [code = DEPRESSION SCREENING (12+)] [facility] Future Scheduled Test 2022-07-20 00:00:00 DEPRESSION SCREENING (12+) [code = DEPRESSION SCREENING (12+)] [facility] Future Scheduled Test 2022-07-20 00:00:00 DEPRESSION SCREENING (12+) [code = DEPRESSION SCREENING (12+)] [facility] Future Scheduled Test 2022-07-20 00:00:00 DEPRESSION SCREENING (12+) [code = DEPRESSION SCREENING (12+)] [facility] Future Scheduled Test 2022-07-20 00:00:00 DEPRESSION SCREENING (12+) [code = DEPRESSION SCREENING (12+)] [facility] Future Scheduled Test 2022-07-20 00:00:00 DEPRESSION SCREENING (12+) [code = DEPRESSION SCREENING (12+)] [facility] Future Scheduled Test 2022-07-20 00:00:00 DEPRESSION SCREENING (12+) [code = DEPRESSION SCREENING (12+)] [facility] Future Scheduled Test 2022-07-20 00:00:00 DEPRESSION SCREENING (12+) [code = DEPRESSION SCREENING (12+)] [facility] Future Scheduled Test 2022-07-20 00:00:00 DEPRESSION SCREENING (12+) [code = DEPRESSION SCREENING (12+)] [facility] Future Scheduled Test 2022-07-20 00:00:00 DEPRESSION SCREENING (12+) [code = DEPRESSION SCREENING (12+)] [facility] Future Scheduled Test 2022-07-20 00:00:00 DEPRESSION SCREENING (12+) [code = DEPRESSION SCREENING (12+)] [facility] Future Scheduled Test 2022-07-20 00:00:00 DEPRESSION SCREENING (12+) [code = DEPRESSION SCREENING (12+)] [facility] Future Scheduled Test 2022-07-20 00:00:00 DEPRESSION SCREENING (12+) [code = DEPRESSION SCREENING (12+)] [facility] Future Scheduled Test 2022-07-20 00:00:00 DEPRESSION SCREENING (12+) [code = DEPRESSION SCREENING (12+)] [facility] Future Scheduled Test 2022-06-21 00:00:00 COVID-19 VACCINE (4 - Booster for Pfizer series) [code = COVID-19 VACCINE (4 - Booster for Pfizer series)] [facility] Future Scheduled Test 2022-06-21 00:00:00 COVID-19 VACCINE (4 - Booster for Pfizer series) [code = COVID-19 VACCINE (4 - Booster for Pfizer series)] [facility] Future Scheduled Test 2022-06-21 00:00:00 COVID-19 VACCINE (4 - Booster for Pfizer series) [code = COVID-19 VACCINE (4 - Booster for Pfizer series)] [facility] Future Scheduled Test 2022-06-21 00:00:00 COVID-19 VACCINE (4 - Booster for Pfizer series) [code = COVID-19 VACCINE (4 - Booster for Pfizer series)] [facility] Future Scheduled Test 2022-04-16 00:00:00 COVID-19 VACCINE (4 - Booster for Pfizer series) [code = COVID-19 VACCINE (4 - Booster for Pfizer series)] [facility] Future Scheduled Test 2022-04-16 00:00:00 COVID-19 VACCINE (4 - Booster for Pfizer series) [code = COVID-19 VACCINE (4 - Booster for Pfizer series)] [facility] Future Scheduled Test 2022-04-16 00:00:00 COVID-19 VACCINE (4 - Booster for Pfizer series) [code = COVID-19 VACCINE (4 - Booster for Pfizer series)] [facility] Future Scheduled Test 2022-04-16 00:00:00 COVID-19 VACCINE (4 - Booster for Pfizer series) [code = COVID-19 VACCINE (4 - Booster for Pfizer series)] [facility] Future Scheduled Test 2022-04-16 00:00:00 COVID-19 VACCINE (4 - Booster for Pfizer series) [code = COVID-19 VACCINE (4 - Booster for Pfizer series)] [facility] Future Scheduled Test 2022-04-16 00:00:00 COVID-19 VACCINE (4 - Booster for Pfizer series) [code = COVID-19 VACCINE (4 - Booster for Pfizer series)] [facility] Future Scheduled Test 2022-04-16 00:00:00 COVID-19 VACCINE (4 - Booster for Pfizer series) [code = COVID-19 VACCINE (4 - Booster for Pfizer series)] [facility] Future Scheduled Test 2022-04-16 00:00:00 COVID-19 VACCINE (4 - Booster for Pfizer series) [code = COVID-19 VACCINE (4 - Booster for Pfizer series)] [facility] Future Scheduled Test 2022-04-16 00:00:00 COVID-19 VACCINE (4 - Booster for Pfizer series) [code = COVID-19 VACCINE (4 - Booster for Pfizer series)] [facility] Future Scheduled Test 2022-04-16 00:00:00 COVID-19 VACCINE (4 - Booster for Pfizer series) [code = COVID-19 VACCINE (4 - Booster for Pfizer series)] [facility] Future Scheduled Test 2022-04-16 00:00:00 COVID-19 VACCINE (4 - Booster for Pfizer series) [code = COVID-19 VACCINE (4 - Booster for Pfizer series)] [facility] Future Scheduled Test 2022-04-16 00:00:00 COVID-19 VACCINE (4 - Booster for Pfizer series) [code = COVID-19 VACCINE (4 - Booster for Pfizer series)] [facility] Future Scheduled Test 2022-04-16 00:00:00 COVID-19 VACCINE (4 - Booster for Pfizer series) [code = COVID-19 VACCINE (4 - Booster for Pfizer series)] [facility] Future Scheduled Test 2022-04-16 00:00:00 COVID-19 VACCINE (4 - Booster for Pfizer series) [code = COVID-19 VACCINE (4 - Booster for Pfizer series)] [facility] Future Scheduled Test 2022-04-16 00:00:00 COVID-19 VACCINE (4 - Booster for Pfizer series) [code = COVID-19 VACCINE (4 - Booster for Pfizer series)] [facility] Future Scheduled Test 2022-04-16 00:00:00 COVID-19 VACCINE (4 - Booster for Pfizer series) [code = COVID-19 VACCINE (4 - Booster for Pfizer series)] [facility] Future Scheduled Test 2022-04-16 00:00:00 COVID-19 VACCINE (4 - Booster for Pfizer series) [code = COVID-19 VACCINE (4 - Booster for Pfizer series)] [facility] Future Scheduled Test 2022-04-16 00:00:00 COVID-19 VACCINE (4 - Booster for Pfizer series) [code = COVID-19 VACCINE (4 - Booster for Pfizer series)] [facility] Future Scheduled Test 2022-04-16 00:00:00 COVID-19 VACCINE (4 - Booster for Pfizer series) [code = COVID-19 VACCINE (4 - Booster for Pfizer series)] [facility] Future Scheduled Test 2022-04-16 00:00:00 COVID-19 VACCINE (4 - Booster for Pfizer series) [code = COVID-19 VACCINE (4 - Booster for Pfizer series)] [facility] Future Scheduled Test 2022-04-16 00:00:00 COVID-19 VACCINE (4 - Pfizer series) [code = COVID-19 VACCINE (4 - Pfizer series)] [facility] Future Scheduled Test 2022-04-16 00:00:00 COVID-19 VACCINE (4 - Pfizer series) [code = COVID-19 VACCINE (4 - Pfizer series)] [facility] Future Scheduled Test 2022-04-16 00:00:00 COVID-19 VACCINE (4 - Pfizer series) [code = COVID-19 VACCINE (4 - Pfizer series)] [facility] Future Scheduled Test 2022-04-16 00:00:00 COVID-19 VACCINE (4 - Pfizer series) [code = COVID-19 VACCINE (4 - Pfizer series)] [facility] Future Scheduled Test 2022-04-16 00:00:00 COVID-19 VACCINE (4 - Booster for Pfizer series) [code = COVID-19 VACCINE (4 - Booster for Pfizer series)] [facility] Future Scheduled Test 2022-04-16 00:00:00 COVID-19 VACCINE (4 - Pfizer series) [code = COVID-19 VACCINE (4 - Pfizer series)] [facility] Future Scheduled Test 2022-03-20 00:00:00 INFLUENZA VACCINE (#1) [code = INFLUENZA VACCINE (#1)] [facility] Future Scheduled Test 2022-03-20 00:00:00 INFLUENZA VACCINE (#1) [code = INFLUENZA VACCINE (#1)] [facility] Future Scheduled Test 2022-03-20 00:00:00 INFLUENZA VACCINE (#1) [code = INFLUENZA VACCINE (#1)] [facility] Future Scheduled Test 2022-03-20 00:00:00 INFLUENZA VACCINE (#1) [code = INFLUENZA VACCINE (#1)] [facility] Future Scheduled Test 2022-01-14 00:00:00 SHINGLES VACCINES (1 of 2) [code = SHINGLES VACCINES (1 of 2)] [facility] Future Scheduled Test 2022-01-14 00:00:00 SHINGLES VACCINES (1 of 2) [code = SHINGLES VACCINES (1 of 2)] [facility] Future Scheduled Test 2022-01-14 00:00:00 SHINGLES VACCINES (1 of 2) [code = SHINGLES VACCINES (1 of 2)] [facility] Future Scheduled Test 2022-01-14 00:00:00 SHINGLES VACCINES (1 of 2) [code = SHINGLES VACCINES (1 of 2)] [facility] Future Scheduled Test 2022-01-14 00:00:00 SHINGLES VACCINES (1 of 2) [code = SHINGLES VACCINES (1 of 2)] [facility] Future Scheduled Test 2022-01-14 00:00:00 SHINGLES VACCINES (1 of 2) [code = SHINGLES VACCINES (1 of 2)] [facility] Future Scheduled Test 2022-01-14 00:00:00 SHINGLES VACCINES (1 of 2) [code = SHINGLES VACCINES (1 of 2)] [facility] Future Scheduled Test 2022-01-14 00:00:00 SHINGLES VACCINES (1 of 2) [code = SHINGLES VACCINES (1 of 2)] [facility] Future Scheduled Test 2022-01-14 00:00:00 SHINGLES VACCINES (1 of 2) [code = SHINGLES VACCINES (1 of 2)] [facility] Future Scheduled Test 2022-01-14 00:00:00 SHINGLES VACCINES (1 of 2) [code = SHINGLES VACCINES (1 of 2)] [facility] Future Scheduled Test 2022-01-14 00:00:00 SHINGLES VACCINES (1 of 2) [code = SHINGLES VACCINES (1 of 2)] [facility] Future Scheduled Test 2022-01-14 00:00:00 SHINGLES VACCINES (1 of 2) [code = SHINGLES VACCINES (1 of 2)] [facility] Future Scheduled Test 2022-01-14 00:00:00 SHINGLES VACCINES (1 of 2) [code = SHINGLES VACCINES (1 of 2)] [facility] Future Scheduled Test 2022-01-14 00:00:00 SHINGLES VACCINES (1 of 2) [code = SHINGLES VACCINES (1 of 2)] [facility] Future Scheduled Test 2022-01-14 00:00:00 SHINGLES VACCINES (1 of 2) [code = SHINGLES VACCINES (1 of 2)] [facility] Future Scheduled Test 2022-01-14 00:00:00 Screening for malignant neoplasm of lung (procedure) [code = [id number]] [facility] Future Scheduled Test 2022-01-14 00:00:00 SHINGLES VACCINES (1 of 2) [code = SHINGLES VACCINES (1 of 2)] [facility] Future Scheduled Test 2022-01-14 00:00:00 Screening for malignant neoplasm of lung (procedure) [code = 147522274] [facility] Future Scheduled Test 2022-01-14 00:00:00 SHINGLES VACCINES (1 of 2) [code = SHINGLES VACCINES (1 of 2)] [facility] Future Scheduled Test 2022-01-14 00:00:00 Screening for malignant neoplasm of lung (procedure) [code = 521160597] [facility] Future Scheduled Test 2022-01-14 00:00:00 SHINGLES VACCINES (1 of 2) [code = SHINGLES VACCINES (1 of 2)] [facility] Future Scheduled Test 2022-01-14 00:00:00 Screening for malignant neoplasm of lung (procedure) [code = 357833549] [facility] Future Scheduled Test 2022-01-14 00:00:00 SHINGLES VACCINES (1 of 2) [code = SHINGLES VACCINES (1 of 2)] [facility] Future Scheduled Test 2022-01-14 00:00:00 Screening for malignant neoplasm of lung (procedure) [code = 893292136] [facility] Future Scheduled Test 2022-01-14 00:00:00 SHINGLES VACCINES (1 of 2) [code = SHINGLES VACCINES (1 of 2)] [facility] Future Scheduled Test 2022-01-14 00:00:00 Screening for malignant neoplasm of lung (procedure) [code = 311282924] [facility] Future Scheduled Test 2022-01-14 00:00:00 SHINGLES VACCINES (1 of 2) [code = SHINGLES VACCINES (1 of 2)] [facility] Future Scheduled Test 2022-01-14 00:00:00 Screening for malignant neoplasm of lung (procedure) [code = 890681971] [facility] Future Scheduled Test 2022-01-14 00:00:00 SHINGLES VACCINES (1 of 2) [code = SHINGLES VACCINES (1 of 2)] [facility] Future Scheduled Test 2022-01-14 00:00:00 Screening for malignant neoplasm of lung (procedure) [code = 160321980] [facility] Future Scheduled Test 2022-01-14 00:00:00 SHINGLES VACCINES (1 of 2) [code = SHINGLES VACCINES (1 of 2)] [facility] Future Scheduled Test 2022-01-14 00:00:00 Screening for malignant neoplasm of lung (procedure) [code = 023242759] [facility] Future Scheduled Test 2022-01-14 00:00:00 SHINGLES VACCINES (1 of 2) [code = SHINGLES VACCINES (1 of 2)] [facility] Future Scheduled Test 2022-01-14 00:00:00 Screening for malignant neoplasm of lung (procedure) [code = 685418827] [facility] Future Scheduled Test 2022-01-14 00:00:00 SHINGLES VACCINES (1 of 2) [code = SHINGLES VACCINES (1 of 2)] [facility] Future Scheduled Test 2022-01-14 00:00:00 Screening for malignant neoplasm of lung (procedure) [code = 448181143] [facility] Future Scheduled Test 2022-01-14 00:00:00 SHINGLES VACCINES (1 of 2) [code = SHINGLES VACCINES (1 of 2)] [facility] Future Scheduled Test 2022-01-14 00:00:00 Screening for malignant neoplasm of lung (procedure) [code = 728275573] [facility] Future Scheduled Test 2022-01-14 00:00:00 SHINGLES VACCINES (1 of 2) [code = SHINGLES VACCINES (1 of 2)] [facility] Future Scheduled Test 2022-01-14 00:00:00 Screening for malignant neoplasm of lung (procedure) [code = 623341369] [facility] Future Scheduled Test 2022-01-14 00:00:00 SHINGLES VACCINES (1 of 2) [code = SHINGLES VACCINES (1 of 2)] [facility] Future Scheduled Test 2022-01-14 00:00:00 Screening for malignant neoplasm of lung (procedure) [code = 209542169] [facility] Future Scheduled Test 2022-01-14 00:00:00 SHINGLES VACCINES (1 of 2) [code = SHINGLES VACCINES (1 of 2)] [facility] Future Scheduled Test 2022-01-14 00:00:00 Screening for malignant neoplasm of lung (procedure) [code = 825996353] [facility] Future Scheduled Test 2022-01-14 00:00:00 SHINGLES VACCINES (1 of 2) [code = SHINGLES VACCINES (1 of 2)] [facility] Future Scheduled Test 2022-01-14 00:00:00 Screening for malignant neoplasm of lung (procedure) [code = 196320064] [facility] Future Scheduled Test 2022-01-14 00:00:00 SHINGLES VACCINES (1 of 2) [code = SHINGLES VACCINES (1 of 2)] [facility] Future Scheduled Test 2022-01-14 00:00:00 Screening for malignant neoplasm of lung (procedure) [code = 042573113] [facility] Future Scheduled Test 2022-01-14 00:00:00 SHINGLES VACCINES (1 of 2) [code = SHINGLES VACCINES (1 of 2)] [facility] Future Scheduled Test 2022-01-14 00:00:00 SHINGLES VACCINES (1 of 2) [code = SHINGLES VACCINES (1 of 2)] [facility] Future Scheduled Test 2022-01-14 00:00:00 SHINGLES VACCINES (1 of 2) [code = SHINGLES VACCINES (1 of 2)] [facility] Future Scheduled Test 2022-01-14 00:00:00 Screening for malignant neoplasm of lung (procedure) [code = 099186174] [facility] Future Scheduled Test 2022-01-14 00:00:00 SHINGLES VACCINES (1 of 2) [code = SHINGLES VACCINES (1 of 2)] [facility] Future Scheduled Test 2022-01-14 00:00:00 Screening for malignant neoplasm of lung (procedure) [code = 797224459] [facility] Future Scheduled Test 2022-01-14 00:00:00 SHINGLES VACCINES (1 of 2) [code = SHINGLES VACCINES (1 of 2)] [facility] Future Scheduled Test 2022-01-14 00:00:00 Screening for malignant neoplasm of lung (procedure) [code = 773742566] [facility] Future Scheduled Test 2022-01-14 00:00:00 SHINGLES VACCINES (1 of 2) [code = SHINGLES VACCINES (1 of 2)] [facility] Future Scheduled Test 2022-01-14 00:00:00 Screening for malignant neoplasm of lung (procedure) [code = 498713453] [facility] Future Scheduled Test 2022-01-14 00:00:00 SHINGLES VACCINES (1 of 2) [code = SHINGLES VACCINES (1 of 2)] [facility] Future Scheduled Test 2022-01-14 00:00:00 Screening for malignant neoplasm of lung (procedure) [code = 013412127] [facility] Future Scheduled Test 2022-01-14 00:00:00 SHINGLES VACCINES (1 of 2) [code = SHINGLES VACCINES (1 of 2)] [facility] Future Scheduled Test 2022-01-14 00:00:00 Screening for malignant neoplasm of lung (procedure) [code = 856297001] [facility] Future Scheduled Test 2022-01-14 00:00:00 SHINGLES VACCINES (1 of 2) [code = SHINGLES VACCINES (1 of 2)] [facility] Future Scheduled Test 2022-01-14 00:00:00 Screening for malignant neoplasm of lung (procedure) [code = 202164631] [facility] Future Scheduled Test 2022-01-14 00:00:00 SHINGLES VACCINES (1 of 2) [code = SHINGLES VACCINES (1 of 2)] [facility] Future Scheduled Test 2022-01-14 00:00:00 Screening for malignant neoplasm of lung (procedure) [code = 737142369] [facility] Future Scheduled Test 2022-01-14 00:00:00 SHINGLES VACCINES (1 of 2) [code = SHINGLES VACCINES (1 of 2)] [facility] Future Scheduled Test 2013-12-15 00:00:00 PNEUMOCOCCAL VACCINE 0-64 YRS (2 - PCV) [code = PNEUMOCOCCAL VACCINE 0-64 YRS (2 - PCV)] [facility] Future Scheduled Test 2013-12-15 00:00:00 PNEUMOCOCCAL VACCINE 0-64 YRS (2 - PCV) [code = PNEUMOCOCCAL VACCINE 0-64 YRS (2 - PCV)] [facility] Future Scheduled Test 2013-12-15 00:00:00 PNEUMOCOCCAL VACCINE 0-64 YRS (2 - PCV) [code = PNEUMOCOCCAL VACCINE 0-64 YRS (2 - PCV)] [facility] Future Scheduled Test 2013-12-15 00:00:00 PNEUMOCOCCAL VACCINE 0-64 YRS (2 - PCV) [code = PNEUMOCOCCAL VACCINE 0-64 YRS (2 - PCV)] [facility] Future Scheduled Test 2013-12-15 00:00:00 Pneumococcal Vaccine: 0-64 Years (2 - PCV) [code = Pneumococcal Vaccine: 0-64 Years (2 - PCV)] [facility] Future Scheduled Test 2013-12-15 00:00:00 Pneumococcal Vaccine: 0-64 Years (2 - PCV) [code = Pneumococcal Vaccine: 0-64 Years (2 - PCV)] [facility] Future Scheduled Test 2013-12-15 00:00:00 Pneumococcal Vaccine: 0-64 Years (2 - PCV) [code = Pneumococcal Vaccine: 0-64 Years (2 - PCV)] [facility] Future Scheduled Test 2013-12-15 00:00:00 Pneumococcal Vaccine: 0-64 Years (2 - PCV) [code = Pneumococcal Vaccine: 0-64 Years (2 - PCV)] [facility] Future Scheduled Test 2013-12-15 00:00:00 Pneumococcal Vaccine: 0-64 Years (2 - PCV) [code = Pneumococcal Vaccine: 0-64 Years (2 - PCV)] [facility] Future Scheduled Test 2013-12-15 00:00:00 Pneumococcal Vaccine: 0-64 Years (2 - PCV) [code = Pneumococcal Vaccine: 0-64 Years (2 - PCV)] [facility] Future Scheduled Test 2013-12-15 00:00:00 Pneumococcal Vaccine: 0-64 Years (2 - PCV) [code = Pneumococcal Vaccine: 0-64 Years (2 - PCV)] [facility] Future Scheduled Test 2013-12-15 00:00:00 Pneumococcal Vaccine: 0-64 Years (2 - PCV) [code = Pneumococcal Vaccine: 0-64 Years (2 - PCV)] [facility] Future Scheduled Test 2013-12-15 00:00:00 Pneumococcal Vaccine: 0-64 Years (2 - PCV) [code = Pneumococcal Vaccine: 0-64 Years (2 - PCV)] [facility] Future Scheduled Test 2013-12-15 00:00:00 Pneumococcal Vaccine: 0-64 Years (2 - PCV) [code = Pneumococcal Vaccine: 0-64 Years (2 - PCV)] [facility] Future Scheduled Test 2013-12-15 00:00:00 Pneumococcal Vaccine: 0-64 Years (2 - PCV) [code = Pneumococcal Vaccine: 0-64 Years (2 - PCV)] [facility] Future Scheduled Test 2013-12-15 00:00:00 Pneumococcal Vaccine: 0-64 Years (2 - PCV) [code = Pneumococcal Vaccine: 0-64 Years (2 - PCV)] [facility] Future Scheduled Test 2013-12-15 00:00:00 Pneumococcal Vaccine: 0-64 Years (2 - PCV) [code = Pneumococcal Vaccine: 0-64 Years (2 - PCV)] [facility] Future Scheduled Test 2013-12-15 00:00:00 Pneumococcal Vaccine: 0-64 Years (2 - PCV) [code = Pneumococcal Vaccine: 0-64 Years (2 - PCV)] [facility] Future Scheduled Test 1993-01-14 00:00:00 Screening for malignant neoplasm of cervix (procedure) [code = 545250224] [facility] Future Scheduled Test 1993-01-14 00:00:00 Screening for malignant neoplasm of cervix (procedure) [code = 012343438] [facility] Future Scheduled Test 1993-01-14 00:00:00 Screening for malignant neoplasm of cervix (procedure) [code = 880474164] [facility] Future Scheduled Test 1993-01-14 00:00:00 Screening for malignant neoplasm of cervix (procedure) [code = 390244211] [facility] Future Scheduled Test 1993-01-14 00:00:00 Screening for malignant neoplasm of cervix (procedure) [code = 666478694] [facility] Future Scheduled Test 1993-01-14 00:00:00 Screening for malignant neoplasm of cervix (procedure) [code = 894276123] [facility] Future Scheduled Test 1993-01-14 00:00:00 Screening for malignant neoplasm of cervix (procedure) [code = 525353938] [facility] Future Scheduled Test 1993-01-14 00:00:00 Screening for malignant neoplasm of cervix (procedure) [code = 157640246] [facility] Future Scheduled Test 1993-01-14 00:00:00 Screening for malignant neoplasm of cervix (procedure) [code = 325300380] [facility] Future Scheduled Test 1993-01-14 00:00:00 Screening for malignant neoplasm of cervix (procedure) [code = 483976873] [facility] Future Scheduled Test 1993-01-14 00:00:00 Screening for malignant neoplasm of cervix (procedure) [code = 194711392] [facility] Future Scheduled Test 1993-01-14 00:00:00 Screening for malignant neoplasm of cervix (procedure) [code = 002120744] [facility] Future Scheduled Test 1993-01-14 00:00:00 Screening for malignant neoplasm of cervix (procedure) [code = 793013692] [facility] Future Scheduled Test 1993-01-14 00:00:00 Screening for malignant neoplasm of cervix (procedure) [code = 165865426] [facility] Future Scheduled Test 1993-01-14 00:00:00 Screening for malignant neoplasm of cervix (procedure) [code = 811144687] [facility] Future Scheduled Test 1993-01-14 00:00:00 Screening for malignant neoplasm of cervix (procedure) [code = 723269381] [facility] Future Scheduled Test 1993-01-14 00:00:00 Screening for malignant neoplasm of cervix (procedure) [code = 949778776] [facility] Future Scheduled Test 1993-01-14 00:00:00 Screening for malignant neoplasm of cervix (procedure) [code = 409760473] [facility] Future Scheduled Test 1993-01-14 00:00:00 Screening for malignant neoplasm of cervix (procedure) [code = 643462058] [facility] Future Scheduled Test 1993-01-14 00:00:00 Screening for malignant neoplasm of cervix (procedure) [code = 589072636] [facility] Future Scheduled Test 1993-01-14 00:00:00 Screening for malignant neoplasm of cervix (procedure) [code = 282052733] [facility] Future Scheduled Test 1993-01-14 00:00:00 Screening for malignant neoplasm of cervix (procedure) [code = 252605071] [facility] Future Scheduled Test 1993-01-14 00:00:00 Screening for malignant neoplasm of cervix (procedure) [code = 108365159] [facility] Future Scheduled Test 1993-01-14 00:00:00 Screening for malignant neoplasm of cervix (procedure) [code = 224967720] [facility] Future Scheduled Test 1993-01-14 00:00:00 Screening for malignant neoplasm of cervix (procedure) [code = 487304147] [facility] Future Scheduled Test 1993-01-14 00:00:00 Screening for malignant neoplasm of cervix (procedure) [code = 713320726] [facility] Future Scheduled Test 1993-01-14 00:00:00 Screening for malignant neoplasm of cervix (procedure) [code = 393961420] [facility] Future Scheduled Test 1993-01-14 00:00:00 Screening for malignant neoplasm of cervix (procedure) [code = 108954016] [facility] Future Scheduled Test 1993-01-14 00:00:00 Screening for malignant neoplasm of cervix (procedure) [code = 667244776] [facility] Future Scheduled Test 1993-01-14 00:00:00 Screening for malignant neoplasm of cervix (procedure) [code = 263158006] [facility] Future Scheduled Test 1993-01-14 00:00:00 Screening for malignant neoplasm of cervix (procedure) [code = 571919474] [facility] Future Scheduled Test 1993-01-14 00:00:00 Screening for malignant neoplasm of cervix (procedure) [code = 276157429] [facility] Future Scheduled Test 1993-01-14 00:00:00 Screening for malignant neoplasm of cervix (procedure) [code = 072307380] [facility] Future Scheduled Test 1993-01-14 00:00:00 Screening for malignant neoplasm of cervix (procedure) [code = 038308562] [facility] Future Scheduled Test 1993-01-14 00:00:00 Screening for malignant neoplasm of cervix (procedure) [code = 883642930] [facility] Future Scheduled Test 1993-01-14 00:00:00 Screening for malignant neoplasm of cervix (procedure) [code = 415482176] [facility] Future Scheduled Test 1993-01-14 00:00:00 Screening for malignant neoplasm of cervix (procedure) [code = 038285835] [facility] Future Scheduled Test 1993-01-14 00:00:00 Screening for malignant neoplasm of cervix (procedure) [code = 669658117] [facility] Future Scheduled Test 1993-01-14 00:00:00 Screening for malignant neoplasm of cervix (procedure) [code = 190557673] [facility] Future Scheduled Test 1993-01-14 00:00:00 Screening for malignant neoplasm of cervix (procedure) [code = 278087675] [facility] Future Scheduled Test 1993-01-14 00:00:00 Screening for malignant neoplasm of cervix (procedure) [code = 908317790] [facility] Future Scheduled Test 1993-01-14 00:00:00 Screening for malignant neoplasm of cervix (procedure) [code = 259541791] [facility] Future Scheduled Test 1991-01-14 00:00:00 DTAP/TDAP/TD VACCINES (1 - Tdap) [code = DTAP/TDAP/TD VACCINES (1 - Tdap)] [facility] Future Scheduled Test 1991-01-14 00:00:00 DTAP/TDAP/TD VACCINES (1 - Tdap) [code = DTAP/TDAP/TD VACCINES (1 - Tdap)] [facility] Future Scheduled Test 1991-01-14 00:00:00 DTAP/TDAP/TD VACCINES (1 - Tdap) [code = DTAP/TDAP/TD VACCINES (1 - Tdap)] [facility] Future Scheduled Test 1991-01-14 00:00:00 DTAP/TDAP/TD VACCINES (1 - Tdap) [code = DTAP/TDAP/TD VACCINES (1 - Tdap)] [facility] Future Scheduled Test 1991-01-14 00:00:00 DTAP/TDAP/TD VACCINES (1 - Tdap) [code = DTAP/TDAP/TD VACCINES (1 - Tdap)] [facility] Future Scheduled Test 1991-01-14 00:00:00 DTAP/TDAP/TD VACCINES (1 - Tdap) [code = DTAP/TDAP/TD VACCINES (1 - Tdap)] [facility] Future Scheduled Test 1991-01-14 00:00:00 DTAP/TDAP/TD VACCINES (1 - Tdap) [code = DTAP/TDAP/TD VACCINES (1 - Tdap)] [facility] Future Scheduled Test 1991-01-14 00:00:00 DTAP/TDAP/TD VACCINES (1 - Tdap) [code = DTAP/TDAP/TD VACCINES (1 - Tdap)] [facility] Future Scheduled Test 1991-01-14 00:00:00 DTAP/TDAP/TD VACCINES (1 - Tdap) [code = DTAP/TDAP/TD VACCINES (1 - Tdap)] [facility] Future Scheduled Test 1991-01-14 00:00:00 DTAP/TDAP/TD VACCINES (1 - Tdap) [code = DTAP/TDAP/TD VACCINES (1 - Tdap)] [facility] Future Scheduled Test 1991-01-14 00:00:00 DTAP/TDAP/TD VACCINES (1 - Tdap) [code = DTAP/TDAP/TD VACCINES (1 - Tdap)] [facility] Future Scheduled Test 1991-01-14 00:00:00 DTAP/TDAP/TD VACCINES (1 - Tdap) [code = DTAP/TDAP/TD VACCINES (1 - Tdap)] [facility] Future Scheduled Test 1991-01-14 00:00:00 DTAP/TDAP/TD VACCINES (1 - Tdap) [code = DTAP/TDAP/TD VACCINES (1 - Tdap)] [facility] Future Scheduled Test 1991-01-14 00:00:00 DTAP/TDAP/TD VACCINES (1 - Tdap) [code = DTAP/TDAP/TD VACCINES (1 - Tdap)] [facility] Future Scheduled Test 1991-01-14 00:00:00 DTAP/TDAP/TD VACCINES (1 - Tdap) [code = DTAP/TDAP/TD VACCINES (1 - Tdap)] [facility] Future Scheduled Test 1991-01-14 00:00:00 DTAP/TDAP/TD VACCINES (1 - Tdap) [code = DTAP/TDAP/TD VACCINES (1 - Tdap)] [facility] Future Scheduled Test 1991-01-14 00:00:00 DTAP/TDAP/TD VACCINES (1 - Tdap) [code = DTAP/TDAP/TD VACCINES (1 - Tdap)] [facility] Future Scheduled Test 1991-01-14 00:00:00 DTAP/TDAP/TD VACCINES (1 - Tdap) [code = DTAP/TDAP/TD VACCINES (1 - Tdap)] [facility] Future Scheduled Test 1991-01-14 00:00:00 DTAP/TDAP/TD VACCINES (1 - Tdap) [code = DTAP/TDAP/TD VACCINES (1 - Tdap)] [facility] Future Scheduled Test 1991-01-14 00:00:00 DTAP/TDAP/TD VACCINES (1 - Tdap) [code = DTAP/TDAP/TD VACCINES (1 - Tdap)] [facility] Future Scheduled Test 1991-01-14 00:00:00 DTAP/TDAP/TD VACCINES (1 - Tdap) [code = DTAP/TDAP/TD VACCINES (1 - Tdap)] [facility] Future Scheduled Test 1991-01-14 00:00:00 DTAP/TDAP/TD VACCINES (1 - Tdap) [code = DTAP/TDAP/TD VACCINES (1 - Tdap)] [facility] Future Scheduled Test 1991-01-14 00:00:00 DTAP/TDAP/TD VACCINES (1 - Tdap) [code = DTAP/TDAP/TD VACCINES (1 - Tdap)] [facility] Future Scheduled Test 1991-01-14 00:00:00 DTAP/TDAP/TD VACCINES (1 - Tdap) [code = DTAP/TDAP/TD VACCINES (1 - Tdap)] [facility] Future Scheduled Test 1991-01-14 00:00:00 DTAP/TDAP/TD VACCINES (1 - Tdap) [code = DTAP/TDAP/TD VACCINES (1 - Tdap)] [facility] Future Scheduled Test 1991-01-14 00:00:00 DTAP/TDAP/TD VACCINES (1 - Tdap) [code = DTAP/TDAP/TD VACCINES (1 - Tdap)] [facility] Future Scheduled Test 1991-01-14 00:00:00 DTAP/TDAP/TD VACCINES (1 - Tdap) [code = DTAP/TDAP/TD VACCINES (1 - Tdap)] [facility] Future Scheduled Test 1991-01-14 00:00:00 DTAP/TDAP/TD VACCINES (1 - Tdap) [code = DTAP/TDAP/TD VACCINES (1 - Tdap)] [facility] Future Scheduled Test 1991-01-14 00:00:00 DTAP/TDAP/TD VACCINES (1 - Tdap) [code = DTAP/TDAP/TD VACCINES (1 - Tdap)] [facility] Future Scheduled Test 1991-01-14 00:00:00 DTAP/TDAP/TD VACCINES (1 - Tdap) [code = DTAP/TDAP/TD VACCINES (1 - Tdap)] [facility] Future Scheduled Test 1991-01-14 00:00:00 DTAP/TDAP/TD VACCINES (1 - Tdap) [code = DTAP/TDAP/TD VACCINES (1 - Tdap)] [facility] Future Scheduled Test 1991-01-14 00:00:00 DTAP/TDAP/TD VACCINES (1 - Tdap) [code = DTAP/TDAP/TD VACCINES (1 - Tdap)] [facility] Future Scheduled Test 1991-01-14 00:00:00 DTAP/TDAP/TD VACCINES (1 - Tdap) [code = DTAP/TDAP/TD VACCINES (1 - Tdap)] [facility] Future Scheduled Test 1991-01-14 00:00:00 DTAP/TDAP/TD VACCINES (1 - Tdap) [code = DTAP/TDAP/TD VACCINES (1 - Tdap)] [facility] Future Scheduled Test 1991-01-14 00:00:00 DTAP/TDAP/TD VACCINES (1 - Tdap) [code = DTAP/TDAP/TD VACCINES (1 - Tdap)] [facility] Future Scheduled Test 1991-01-14 00:00:00 DTAP/TDAP/TD VACCINES (1 - Tdap) [code = DTAP/TDAP/TD VACCINES (1 - Tdap)] [facility] Future Scheduled Test 1991-01-14 00:00:00 DTAP/TDAP/TD VACCINES (1 - Tdap) [code = DTAP/TDAP/TD VACCINES (1 - Tdap)] [facility] Future Scheduled Test 1991-01-14 00:00:00 DTAP/TDAP/TD VACCINES (1 - Tdap) [code = DTAP/TDAP/TD VACCINES (1 - Tdap)] [facility] Future Scheduled Test 1991-01-14 00:00:00 DTAP/TDAP/TD VACCINES (1 - Tdap) [code = DTAP/TDAP/TD VACCINES (1 - Tdap)] [facility] Future Scheduled Test 1991-01-14 00:00:00 DTAP/TDAP/TD VACCINES (1 - Tdap) [code = DTAP/TDAP/TD VACCINES (1 - Tdap)] [facility] Future Scheduled Test 1991-01-14 00:00:00 DTAP/TDAP/TD VACCINES (1 - Tdap) [code = DTAP/TDAP/TD VACCINES (1 - Tdap)] [facility] Scheduled Test 1991-01-14 00:00:00 DTAP/TDAP/TD VACCINES (1 - Tdap) [code = DTAP/TDAP/TD VACCINES (1 - Tdap)] [facility] Scheduled Test 1990-01-14 00:00:00 HEPATITIS C SCREENING [code = HEPATITIS C SCREENING] [facility] Scheduled Test 1990-01-14 00:00:00 HEPATITIS C SCREENING [code = HEPATITIS C SCREENING] [facility] Scheduled Test 1990-01-14 00:00:00 HEPATITIS C SCREENING [code = HEPATITIS C SCREENING] [facility] Scheduled Test 1990-01-14 00:00:00 HEPATITIS C SCREENING [code = HEPATITIS C SCREENING] [facility] Scheduled Test 1990-01-14 00:00:00 HEPATITIS C SCREENING [code = HEPATITIS C SCREENING] [facility] Scheduled Test 1990-01-14 00:00:00 HEPATITIS C SCREENING [code = HEPATITIS C SCREENING] [facility] Scheduled Test 1990-01-14 00:00:00 HEPATITIS C SCREENING [code = HEPATITIS C SCREENING] [facility] Scheduled Test 1990-01-14 00:00:00 HEPATITIS C SCREENING [code = HEPATITIS C SCREENING] [facility] Scheduled Test 1990-01-14 00:00:00 HEPATITIS C SCREENING [code = HEPATITIS C SCREENING] [facility] Scheduled Test 1990-01-14 00:00:00 HEPATITIS C SCREENING [code = HEPATITIS C SCREENING] [facility] Scheduled Test 1990-01-14 00:00:00 HEPATITIS C SCREENING [code = HEPATITIS C SCREENING] [facility] Scheduled Test 1990-01-14 00:00:00 HEPATITIS C SCREENING [code = HEPATITIS C SCREENING] [facility] Scheduled Test 1990-01-14 00:00:00 HEPATITIS C SCREENING [code = HEPATITIS C SCREENING] [facility] Scheduled Test 1990-01-14 00:00:00 HEPATITIS C SCREENING [code = HEPATITIS C SCREENING] [facility] Scheduled Test 1990-01-14 00:00:00 HEPATITIS C SCREENING [code = HEPATITIS C SCREENING] [facility] Scheduled Test 1990-01-14 00:00:00 HEPATITIS C SCREENING [code = HEPATITIS C SCREENING] [facility] Scheduled Test 1990-01-14 00:00:00 HEPATITIS C SCREENING [code = HEPATITIS C SCREENING] [facility] Scheduled Test 1990-01-14 00:00:00 HEPATITIS C SCREENING [code = HEPATITIS C SCREENING] [facility] Scheduled Test 1990-01-14 00:00:00 HEPATITIS C SCREENING [code = HEPATITIS C SCREENING] [facility] Scheduled Test 1990-01-14 00:00:00 HEPATITIS C SCREENING [code = HEPATITIS C SCREENING] [facility] Scheduled Test 1990-01-14 00:00:00 HEPATITIS C SCREENING [code = HEPATITIS C SCREENING] [facility] Scheduled Test 1990-01-14 00:00:00 HEPATITIS C SCREENING [code = HEPATITIS C SCREENING] [facility] Scheduled Test 1990-01-14 00:00:00 HEPATITIS C SCREENING [code = HEPATITIS C SCREENING] [facility] Scheduled Test 1990-01-14 00:00:00 HEPATITIS C SCREENING [code = HEPATITIS C SCREENING] [facility] Scheduled Test 1990-01-14 00:00:00 HEPATITIS C SCREENING [code = HEPATITIS C SCREENING] [facility] Scheduled Test 1990-01-14 00:00:00 HEPATITIS C SCREENING [code = HEPATITIS C SCREENING] [facility] Scheduled Test 1990-01-14 00:00:00 HEPATITIS C SCREENING [code = HEPATITIS C SCREENING] [facility] Scheduled Test 1990-01-14 00:00:00 HEPATITIS C SCREENING [code = HEPATITIS C SCREENING] [facility] Scheduled Test 1990-01-14 00:00:00 HEPATITIS C SCREENING [code = HEPATITIS C SCREENING] [facility] Scheduled Test 1990-01-14 00:00:00 HEPATITIS C SCREENING [code = HEPATITIS C SCREENING] [facility] Scheduled Test 1990-01-14 00:00:00 HEPATITIS C SCREENING [code = HEPATITIS C SCREENING] [facility] Scheduled Test 1990-01-14 00:00:00 HEPATITIS C SCREENING [code = HEPATITIS C SCREENING] [facility] Scheduled Test 1990-01-14 00:00:00 HEPATITIS C SCREENING [code = HEPATITIS C SCREENING] [facility] Scheduled Test 1990-01-14 00:00:00 HEPATITIS C SCREENING [code = HEPATITIS C SCREENING] [facility] Scheduled Test 1990-01-14 00:00:00 HEPATITIS C SCREENING [code = HEPATITIS C SCREENING] [facility] Scheduled Test 1990-01-14 00:00:00 HEPATITIS C SCREENING [code = HEPATITIS C SCREENING] [facility] Scheduled Test 1990-01-14 00:00:00 HEPATITIS C SCREENING [code = HEPATITIS C SCREENING] [facility] Scheduled Test 1990-01-14 00:00:00 HEPATITIS C SCREENING [code = HEPATITIS C SCREENING] [facility] Scheduled Test 1990-01-14 00:00:00 HEPATITIS C SCREENING [code = HEPATITIS C SCREENING] [facility] Scheduled Test 1990-01-14 00:00:00 HEPATITIS C SCREENING [code = HEPATITIS C SCREENING] [facility] Scheduled Test 1990-01-14 00:00:00 HEPATITIS C SCREENING [code = HEPATITIS C SCREENING] [facility] Scheduled Test 1990-01-14 00:00:00 HEPATITIS C SCREENING [code = HEPATITIS C SCREENING] [facility] Scheduled Test 1987-01-14 00:00:00 Human immunodeficiency virus screening (procedure) [code = [id number]] [facility] Scheduled Test 1987-01-14 00:00:00 Human immunodeficiency virus screening (procedure) [code = [id number]] [facility] Future Scheduled Test 1984 00:00:00 Tobacco Cessation Counseling and Screening (12+) [code = Tobacco Cessation Counseling and Screening (12+)] [facility] Scheduled Test 1984 00:00:00 Tobacco Cessation Counseling and Screening (12+) [code = Tobacco Cessation Counseling and Screening (12+)] [facility] Future Scheduled Test 1984 00:00:00 Tobacco Cessation Counseling and Screening (12+) [code = Tobacco Cessation Counseling and Screening (12+)] [facility] Scheduled Test 1984 00:00:00 Tobacco Cessation Counseling and Screening (12+) [code = Tobacco Cessation Counseling and Screening (12+)] [facility] Future Scheduled Test 1984 00:00:00 Tobacco Cessation Counseling and Screening (12+) [code = Tobacco Cessation Counseling and Screening (12+)] [facility] Future Scheduled Test 1984 00:00:00 Tobacco Cessation Counseling and Screening (12+) [code = Tobacco Cessation Counseling and Screening (12+)] [facility] Scheduled Test 1984 00:00:00 Tobacco Cessation Counseling and Screening (12+) [code = Tobacco Cessation Counseling and Screening (12+)] [facility] Future Scheduled Test 1984 00:00:00 Tobacco Cessation Counseling and Screening (12+) [code = Tobacco Cessation Counseling and Screening (12+)] [facility] Scheduled Test 1984 00:00:00 Tobacco Cessation Counseling and Screening (12+) [code = Tobacco Cessation Counseling and Screening (12+)] [facility] Future Scheduled Test 1984 00:00:00 Tobacco Cessation Counseling and Screening (12+) [code = Tobacco Cessation Counseling and Screening (12+)] [facility] Future Scheduled Test 1984 00:00:00 Tobacco Cessation Counseling and Screening (12+) [code = Tobacco Cessation Counseling and Screening (12+)] [facility] Future Scheduled Test 1984 00:00:00 Tobacco Cessation Counseling and Screening (12+) [code = Tobacco Cessation Counseling and Screening (12+)] [facility] Future Scheduled Test 1984 00:00:00 Tobacco Cessation Counseling and Screening (12+) [code = Tobacco Cessation Counseling and Screening (12+)] [facility] Scheduled Test 1984 00:00:00 Tobacco Cessation Counseling and Screening (12+) [code = Tobacco Cessation Counseling and Screening (12+)] [facility] Scheduled Test 1984 00:00:00 Tobacco Cessation Counseling and Screening (12+) [code = Tobacco Cessation Counseling and Screening (12+)] [facility] Scheduled Test 1984 00:00:00 Tobacco Cessation Counseling and Screening (12+) [code = Tobacco Cessation Counseling and Screening (12+)] [facility] Scheduled Test 1984 00:00:00 Tobacco Cessation Counseling and Screening (12+) [code = Tobacco Cessation Counseling and Screening (12+)] [facility] Scheduled Test 1984 00:00:00 Tobacco Cessation Counseling and Screening (12+) [code = Tobacco Cessation Counseling and Screening (12+)] [facility] Scheduled Test 1984 00:00:00 Tobacco Cessation Counseling and Screening (12+) [code = Tobacco Cessation Counseling and Screening (12+)] [facility] Future Scheduled Test 1984 00:00:00 Tobacco Cessation Counseling and Screening (12+) [code = Tobacco Cessation Counseling and Screening (12+)] [facility] Scheduled Test 1984 00:00:00 Tobacco Cessation Counseling and Screening (12+) [code = Tobacco Cessation Counseling and Screening (12+)] [facility] Scheduled Test 1984 00:00:00 Tobacco Cessation Counseling and Screening (12+) [code = Tobacco Cessation Counseling and Screening (12+)] [facility] Scheduled Test 1984 00:00:00 Tobacco Cessation Counseling and Screening (12+) [code = Tobacco Cessation Counseling and Screening (12+)] [facility] Future Scheduled Test 1972 00:00:00 Screening for malignant neoplasm of breast (procedure) [code = [id number]] [facility] Scheduled Test 1972 00:00:00 CT Colonography (combo) [code = CT Colonography (combo)] [facility] Scheduled Test 1972 00:00:00 Screening for malignant neoplasm of colon (procedure) [code = 427040113] [facility] Scheduled Test 1972 00:00:00 Screening for malignant neoplasm of colon (procedure) [code = [id number]] [facility] Scheduled Test 1972 00:00:00 Screening for malignant neoplasm of colon (procedure) [code = 075691725] [facility] Scheduled Test 1972 00:00:00 Screening for malignant neoplasm of colon (procedure) [code = 800520951] [facility] Scheduled Test 1972 00:00:00 Sigmoidoscopy [code = Sigmoidoscopy] [facility] Scheduled Test 1972 00:00:00 Screening for malignant neoplasm of breast (procedure) [code = [id number]] [facility] Scheduled Test 1972 00:00:00 CT Colonography (combo) [code = CT Colonography (combo)] [facility] Scheduled Test 1972 00:00:00 Screening for malignant neoplasm of colon (procedure) [code = 104551311] [facility] Scheduled Test 1972 00:00:00 Screening for malignant neoplasm of colon (procedure) [code = 234005206] [facility] Scheduled Test 1972 00:00:00 Screening for malignant neoplasm of colon (procedure) [code = 846305655] [facility] Scheduled Test 1972 00:00:00 Screening for malignant neoplasm of colon (procedure) [code = 311996739] [facility] Scheduled Test 1972 00:00:00 Sigmoidoscopy [code = Sigmoidoscopy] [facility] Scheduled Test 1972 00:00:00 Screening for malignant neoplasm of breast (procedure) [code = 386462948] [facility] Scheduled Test 1972 00:00:00 CT Colonography (combo) [code = CT Colonography (combo)] [facility] Scheduled Test 1972 00:00:00 Screening for malignant neoplasm of colon (procedure) [code = 692773553] [facility] Scheduled Test 1972 00:00:00 Screening for malignant neoplasm of colon (procedure) [code = 675544501] [facility] Scheduled Test 1972 00:00:00 Screening for malignant neoplasm of colon (procedure) [code = 580629310] [facility] Scheduled Test 1972 00:00:00 Screening for malignant neoplasm of colon (procedure) [code = 428174462] [facility] Scheduled Test 1972 00:00:00 Sigmoidoscopy [code = Sigmoidoscopy] [facility] Scheduled Test 1972 00:00:00 Screening for malignant neoplasm of breast (procedure) [code = 143556782] [facility] Scheduled Test 1972 00:00:00 CT Colonography (combo) [code = CT Colonography (combo)] [facility] Scheduled Test 1972 00:00:00 Screening for malignant neoplasm of colon (procedure) [code = 628312516] [facility] Scheduled Test 1972 00:00:00 Screening for malignant neoplasm of colon (procedure) [code = 005991523] [facility] Scheduled Test 1972 00:00:00 Screening for malignant neoplasm of colon (procedure) [code = 909706825] [facility] Scheduled Test 1972 00:00:00 Screening for malignant neoplasm of colon (procedure) [code = 863120799] [facility] Scheduled Test 1972 00:00:00 Sigmoidoscopy [code = Sigmoidoscopy] [facility] Scheduled Test 1972 00:00:00 Screening for malignant neoplasm of breast (procedure) [code = 820081444] [facility] Scheduled Test 1972 00:00:00 CT Colonography (combo) [code = CT Colonography (combo)] [facility] Scheduled Test 1972 00:00:00 Screening for malignant neoplasm of colon (procedure) [code = 865182557] [facility] Scheduled Test 1972 00:00:00 Screening for malignant neoplasm of colon (procedure) [code = 294550265] [facility] Scheduled Test 1972 00:00:00 Screening for malignant neoplasm of colon (procedure) [code = 707545389] [facility] Scheduled Test 1972 00:00:00 Screening for malignant neoplasm of colon (procedure) [code = 133586367] [facility] Scheduled Test 1972 00:00:00 Sigmoidoscopy [code = Sigmoidoscopy] [facility] Scheduled Test 1972 00:00:00 Screening for malignant neoplasm of breast (procedure) [code = 289867363] [facility] Scheduled Test 1972 00:00:00 CT Colonography (combo) [code = CT Colonography (combo)] [facility] Scheduled Test 1972 00:00:00 Screening for malignant neoplasm of colon (procedure) [code = 887550828] [facility] Scheduled Test 1972 00:00:00 Screening for malignant neoplasm of colon (procedure) [code = 088652653] [facility] Scheduled Test 1972 00:00:00 Screening for malignant neoplasm of colon (procedure) [code = 089327521] [facility] Scheduled Test 1972 00:00:00 Screening for malignant neoplasm of colon (procedure) [code = 329292947] [facility] Scheduled Test 1972 00:00:00 Sigmoidoscopy [code = Sigmoidoscopy] [facility] Scheduled Test 1972 00:00:00 Screening for malignant neoplasm of breast (procedure) [code = 685547193] [facility] Scheduled Test 1972 00:00:00 CT Colonography (combo) [code = CT Colonography (combo)] [facility] Scheduled Test 1972 00:00:00 Screening for malignant neoplasm of colon (procedure) [code = 421896769] [facility] Scheduled Test 1972 00:00:00 Screening for malignant neoplasm of colon (procedure) [code = 013265776] [facility] Scheduled Test 1972 00:00:00 Screening for malignant neoplasm of colon (procedure) [code = 025389394] [facility] Scheduled Test 1972 00:00:00 Screening for malignant neoplasm of colon (procedure) [code = 223515731] [facility] Scheduled Test 1972 00:00:00 Sigmoidoscopy [code = Sigmoidoscopy] [facility] Scheduled Test 1972 00:00:00 Screening for malignant neoplasm of breast (procedure) [code = 950911375] [facility] Scheduled Test 1972 00:00:00 CT Colonography (combo) [code = CT Colonography (combo)] [facility] Scheduled Test 1972 00:00:00 Screening for malignant neoplasm of colon (procedure) [code = 408397865] [facility] Scheduled Test 1972 00:00:00 Screening for malignant neoplasm of colon (procedure) [code = 209577541] [facility] Scheduled Test 1972 00:00:00 Screening for malignant neoplasm of colon (procedure) [code = 209241763] [facility] Scheduled Test 1972 00:00:00 Screening for malignant neoplasm of colon (procedure) [code = 952927966] [facility] Scheduled Test 1972 00:00:00 Sigmoidoscopy [code = Sigmoidoscopy] [facility] Scheduled Test 1972 00:00:00 Screening for malignant neoplasm of breast (procedure) [code = 981699730] [facility] Scheduled Test 1972 00:00:00 CT Colonography (combo) [code = CT Colonography (combo)] [facility] Scheduled Test 1972 00:00:00 Screening for malignant neoplasm of colon (procedure) [code = 288369908] [facility] Scheduled Test 1972 00:00:00 Screening for malignant neoplasm of colon (procedure) [code = 814997260] [facility] Scheduled Test 1972 00:00:00 Screening for malignant neoplasm of colon (procedure) [code = 789334951] [facility] Scheduled Test 1972 00:00:00 Screening for malignant neoplasm of colon (procedure) [code = 470278287] [facility] Scheduled Test 1972 00:00:00 Sigmoidoscopy [code = Sigmoidoscopy] [facility] Scheduled Test 1972 00:00:00 Screening for malignant neoplasm of breast (procedure) [code = 233037334] [facility] Scheduled Test 1972 00:00:00 CT Colonography (combo) [code = CT Colonography (combo)] [facility] Scheduled Test 1972 00:00:00 Screening for malignant neoplasm of colon (procedure) [code = 350644376] [facility] Scheduled Test 1972 00:00:00 Screening for malignant neoplasm of colon (procedure) [code = 916265155] [facility] Scheduled Test 1972 00:00:00 Screening for malignant neoplasm of colon (procedure) [code = 900528029] [facility] Scheduled Test 1972 00:00:00 Screening for malignant neoplasm of colon (procedure) [code = 930290408] [facility] Scheduled Test 1972 00:00:00 Sigmoidoscopy [code = Sigmoidoscopy] [facility] Scheduled Test 1972 00:00:00 Screening for malignant neoplasm of breast (procedure) [code = 991691877] [facility] Scheduled Test 1972 00:00:00 CT Colonography (combo) [code = CT Colonography (combo)] [facility] Scheduled Test 1972 00:00:00 Screening for malignant neoplasm of colon (procedure) [code = 615490971] [facility] Scheduled Test 1972 00:00:00 Screening for malignant neoplasm of colon (procedure) [code = 041587801] [facility] Scheduled Test 1972 00:00:00 Screening for malignant neoplasm of colon (procedure) [code = 711362107] [facility] Scheduled Test 1972 00:00:00 Screening for malignant neoplasm of colon (procedure) [code = 420688712] [facility] Scheduled Test 1972 00:00:00 Sigmoidoscopy [code = Sigmoidoscopy] [facility] Scheduled Test 1972 00:00:00 Screening for malignant neoplasm of breast (procedure) [code = 193912407] [facility] Scheduled Test 1972 00:00:00 CT Colonography (combo) [code = CT Colonography (combo)] [facility] Scheduled Test 1972 00:00:00 Screening for malignant neoplasm of colon (procedure) [code = 043879569] [facility] Scheduled Test 1972 00:00:00 Screening for malignant neoplasm of colon (procedure) [code = 080751262] [facility] Scheduled Test 1972 00:00:00 Screening for malignant neoplasm of colon (procedure) [code = 700020284] [facility] Scheduled Test 1972 00:00:00 Screening for malignant neoplasm of colon (procedure) [code = 335530296] [facility] Scheduled Test 1972 00:00:00 Sigmoidoscopy [code = Sigmoidoscopy] [facility] Scheduled Test 1972 00:00:00 Screening for malignant neoplasm of breast (procedure) [code = 520763267] [facility] Scheduled Test 1972 00:00:00 CT Colonography (combo) [code = CT Colonography (combo)] [facility] Scheduled Test 1972 00:00:00 Screening for malignant neoplasm of colon (procedure) [code = 327306075] [facility] Scheduled Test 1972 00:00:00 Screening for malignant neoplasm of colon (procedure) [code = 838558488] [facility] Scheduled Test 1972 00:00:00 Screening for malignant neoplasm of colon (procedure) [code = 406160415] [facility] Scheduled Test 1972 00:00:00 Screening for malignant neoplasm of colon (procedure) [code = 485572670] [facility] Scheduled Test 1972 00:00:00 Sigmoidoscopy [code = Sigmoidoscopy] [facility] Scheduled Test 1972 00:00:00 Screening for malignant neoplasm of breast (procedure) [code = 516016059] [facility] Scheduled Test 1972 00:00:00 CT Colonography (combo) [code = CT Colonography (combo)] [facility] Scheduled Test 1972 00:00:00 Screening for malignant neoplasm of colon (procedure) [code = 679287434] [facility] Scheduled Test 1972 00:00:00 Screening for malignant neoplasm of colon (procedure) [code = 297140961] [facility] Scheduled Test 1972 00:00:00 Screening for malignant neoplasm of colon (procedure) [code = 250833160] [facility] Scheduled Test 1972 00:00:00 Screening for malignant neoplasm of colon (procedure) [code = 346293731] [facility] Scheduled Test 1972 00:00:00 Sigmoidoscopy [code = Sigmoidoscopy] [facility] Scheduled Test 1972 00:00:00 Screening for malignant neoplasm of breast (procedure) [code = 876982957] [facility] Scheduled Test 1972 00:00:00 CT Colonography (combo) [code = CT Colonography (combo)] [facility] Scheduled Test 1972 00:00:00 Screening for malignant neoplasm of colon (procedure) [code = [id number]] [facility] Scheduled Test 1972 00:00:00 Screening for malignant neoplasm of colon (procedure) [code = 858486081] [facility] Scheduled Test 1972 00:00:00 Screening for malignant neoplasm of colon (procedure) [code = 304247195] [facility] Scheduled Test 1972 00:00:00 Screening for malignant neoplasm of colon (procedure) [code = 839669555] [facility] Scheduled Test 1972 00:00:00 Sigmoidoscopy [code = Sigmoidoscopy] [facility] Scheduled Test 1972 00:00:00 Screening for malignant neoplasm of breast (procedure) [code = 430876510] [facility] Scheduled Test 1972 00:00:00 CT Colonography (combo) [code = CT Colonography (combo)] [facility] Scheduled Test 1972 00:00:00 Screening for malignant neoplasm of colon (procedure) [code = 012747666] [facility] Scheduled Test 1972 00:00:00 Screening for malignant neoplasm of colon (procedure) [code = 850262030] [facility] Scheduled Test 1972 00:00:00 Screening for malignant neoplasm of colon (procedure) [code = 161165637] [facility] Scheduled Test 1972 00:00:00 Screening for malignant neoplasm of colon (procedure) [code = 967028958] [facility] Scheduled Test 1972 00:00:00 Sigmoidoscopy [code = Sigmoidoscopy] [facility] Scheduled Test 1972 00:00:00 Screening for malignant neoplasm of breast (procedure) [code = 572031570] [facility] Scheduled Test 1972 00:00:00 CT Colonography (combo) [code = CT Colonography (combo)] [facility] Scheduled Test 1972 00:00:00 Screening for malignant neoplasm of colon (procedure) [code = 511969720] [facility] Scheduled Test 1972 00:00:00 Screening for malignant neoplasm of colon (procedure) [code = 506308143] [facility] Scheduled Test 1972 00:00:00 Screening for malignant neoplasm of colon (procedure) [code = 009432701] [facility] Scheduled Test 1972 00:00:00 Screening for malignant neoplasm of colon (procedure) [code = 602045006] [facility] Scheduled Test 1972 00:00:00 Sigmoidoscopy [code = Sigmoidoscopy] [facility] Scheduled Test 1972 00:00:00 Screening for malignant neoplasm of breast (procedure) [code = 679735607] [facility] Scheduled Test 1972 00:00:00 CT Colonography (combo) [code = CT Colonography (combo)] [facility] Future Scheduled Test 1972 00:00:00 Screening for malignant neoplasm of breast (procedure) [code = 215213415] [facility] Scheduled Test 1972 00:00:00 CT Colonography (combo) [code = CT Colonography (combo)] [facility] Future Scheduled Test 1972 00:00:00 Screening for malignant neoplasm of colon (procedure) [code = 201488982] [facility] Future Scheduled Test 1972 00:00:00 Screening for malignant neoplasm of colon (procedure) [code = 483492604] [facility] Future Scheduled Test 1972 00:00:00 Screening for malignant neoplasm of colon (procedure) [code = 853625342] [facility] Future Scheduled Test 1972 00:00:00 Screening for malignant neoplasm of colon (procedure) [code = 461333736] [facility] Future Scheduled Test 1972 00:00:00 Sigmoidoscopy [code = Sigmoidoscopy] [facility] Future Scheduled Test 1972 00:00:00 Screening for malignant neoplasm of colon (procedure) [code = 588136507] [facility] Future Scheduled Test 1972 00:00:00 Screening for malignant neoplasm of colon (procedure) [code = 549221645] [facility] Future Scheduled Test 1972 00:00:00 Screening for malignant neoplasm of colon (procedure) [code = 314695350] [facility] Future Scheduled Test 1972 00:00:00 Screening for malignant neoplasm of colon (procedure) [code = 678853788] [facility] Future Scheduled Test 1972 00:00:00 Sigmoidoscopy [code = Sigmoidoscopy] [facility] Future Scheduled Test 1972 00:00:00 Screening for malignant neoplasm of breast (procedure) [code = 188340532] [facility] Future Scheduled Test 1972 00:00:00 CT Colonography (combo) [code = CT Colonography (combo)] [facility] Future Scheduled Test 1972 00:00:00 Screening for malignant neoplasm of colon (procedure) [code = 826376123] [facility] Future Scheduled Test 1972 00:00:00 Screening for malignant neoplasm of colon (procedure) [code = 865130141] [facility] Future Scheduled Test 1972 00:00:00 Screening for malignant neoplasm of colon (procedure) [code = 163266875] [facility] Future Scheduled Test 1972 00:00:00 Screening for malignant neoplasm of colon (procedure) [code = 688781468] [facility] Future Scheduled Test 1972 00:00:00 Sigmoidoscopy [code = Sigmoidoscopy] [facility] Future Scheduled Test 1972 00:00:00 Screening for malignant neoplasm of breast (procedure) [code = 350409302] [facility] Future Scheduled Test 1972 00:00:00 CT Colonography (combo) [code = CT Colonography (combo)] [facility] Future Scheduled Test 1972 00:00:00 Screening for malignant neoplasm of colon (procedure) [code = 113417748] [facility] Future Scheduled Test 1972 00:00:00 Screening for malignant neoplasm of colon (procedure) [code = 458520735] [facility] Future Scheduled Test 1972 00:00:00 Screening for malignant neoplasm of colon (procedure) [code = 646528204] [facility] Future Scheduled Test 1972 00:00:00 Screening for malignant neoplasm of colon (procedure) [code = 905729061] [facility] Future Scheduled Test 1972 00:00:00 Sigmoidoscopy [code = Sigmoidoscopy] [facility] Future Scheduled Test 1972 00:00:00 Screening for malignant neoplasm of breast (procedure) [code = 963427896] [facility] Future Scheduled Test 1972 00:00:00 CT Colonography (combo) [code = CT Colonography (combo)] [facility] Future Scheduled Test 1972 00:00:00 Screening for malignant neoplasm of colon (procedure) [code = 256766037] [facility] Future Scheduled Test 1972 00:00:00 Screening for malignant neoplasm of colon (procedure) [code = 806944470] [facility] Future Scheduled Test 1972 00:00:00 Screening for malignant neoplasm of colon (procedure) [code = 845897828] [facility] Future Scheduled Test 1972 00:00:00 Screening for malignant neoplasm of colon (procedure) [code = 023437694] [facility] Future Scheduled Test 1972 00:00:00 Sigmoidoscopy [code = Sigmoidoscopy] [facility] Future Scheduled Test 1972 00:00:00 Screening for malignant neoplasm of breast (procedure) [code = 634049577] [facility] Future Scheduled Test 1972 00:00:00 CT Colonography (combo) [code = CT Colonography (combo)] [facility] Future Scheduled Test 1972 00:00:00 Screening for malignant neoplasm of colon (procedure) [code = 571047126] [facility] Future Scheduled Test 1972 00:00:00 Screening for malignant neoplasm of colon (procedure) [code = 749828008] [facility] Future Scheduled Test 1972 00:00:00 Screening for malignant neoplasm of colon (procedure) [code = 625465928] [facility] Future Scheduled Test 1972 00:00:00 Screening for malignant neoplasm of colon (procedure) [code = 712997820] [facility] Future Scheduled Test 1972 00:00:00 Sigmoidoscopy [code = Sigmoidoscopy] [facility] Future Scheduled Test 1972 00:00:00 Screening for malignant neoplasm of breast (procedure) [code = 614756250] [facility] Future Scheduled Test 1972 00:00:00 CT Colonography (combo) [code = CT Colonography (combo)] [facility] Future Scheduled Test 1972 00:00:00 Screening for malignant neoplasm of colon (procedure) [code = 098201625] [facility] Future Scheduled Test 1972 00:00:00 Screening for malignant neoplasm of colon (procedure) [code = 233633576] [facility] Future Scheduled Test 1972 00:00:00 Screening for malignant neoplasm of colon (procedure) [code = 415915606] [facility] Future Scheduled Test 1972 00:00:00 Screening for malignant neoplasm of colon (procedure) [code = 781986724] [facility] Future Scheduled Test 1972 00:00:00 Sigmoidoscopy [code = Sigmoidoscopy] [facility] Future Scheduled Test 1972 00:00:00 Screening for malignant neoplasm of breast (procedure) [code = 486126374] [facility] Future Scheduled Test 1972 00:00:00 CT Colonography (combo) [code = CT Colonography (combo)] [facility] Future Scheduled Test 1972 00:00:00 Screening for malignant neoplasm of colon (procedure) [code = 518498192] [facility] Future Scheduled Test 1972 00:00:00 Screening for malignant neoplasm of colon (procedure) [code = 047054196] [facility] Future Scheduled Test 1972 00:00:00 Screening for malignant neoplasm of colon (procedure) [code = 486566449] [facility] Future Scheduled Test 1972 00:00:00 Screening for malignant neoplasm of colon (procedure) [code = 494346379] [facility] Future Scheduled Test 1972 00:00:00 Sigmoidoscopy [code = Sigmoidoscopy] [facility] Future Scheduled Test 1972 00:00:00 Screening for malignant neoplasm of breast (procedure) [code = 199109076] [facility] Future Scheduled Test 1972 00:00:00 CT Colonography (combo) [code = CT Colonography (combo)] [facility] Future Scheduled Test 1972 00:00:00 Screening for malignant neoplasm of colon (procedure) [code = 761080866] [facility] Future Scheduled Test 1972 00:00:00 Screening for malignant neoplasm of colon (procedure) [code = 603924118] [facility] Future Scheduled Test 1972 00:00:00 Screening for malignant neoplasm of colon (procedure) [code = 968608237] [facility] Future Scheduled Test 1972 00:00:00 Screening for malignant neoplasm of colon (procedure) [code = 803592343] [facility] Future Scheduled Test 1972 00:00:00 Screening for malignant neoplasm of breast (procedure) [code = 936058766] [facility] Future Scheduled Test 1972 00:00:00 CT Colonography (combo) [code = CT Colonography (combo)] [facility] Future Scheduled Test 1972 00:00:00 Sigmoidoscopy [code = Sigmoidoscopy] [facility] Future Scheduled Test 1972 00:00:00 Screening for malignant neoplasm of colon (procedure) [code = 047470620] [facility] Future Scheduled Test 1972 00:00:00 Screening for malignant neoplasm of colon (procedure) [code = 842271402] [facility] Future Scheduled Test 1972 00:00:00 Screening for malignant neoplasm of colon (procedure) [code = 526138115] [facility] Future Scheduled Test 1972 00:00:00 Screening for malignant neoplasm of colon (procedure) [code = 299900126] [facility] Future Scheduled Test 1972 00:00:00 Sigmoidoscopy [code = Sigmoidoscopy] [facility] Future Scheduled Test 1972 00:00:00 Screening for malignant neoplasm of breast (procedure) [code = 456614342] [facility] Future Scheduled Test 1972 00:00:00 CT Colonography (combo) [code = CT Colonography (combo)] [facility] Future Scheduled Test 1972 00:00:00 Screening for malignant neoplasm of colon (procedure) [code = 405975106] [facility] Future Scheduled Test 1972 00:00:00 Screening for malignant neoplasm of colon (procedure) [code = 808521687] [facility] Future Scheduled Test 1972 00:00:00 Screening for malignant neoplasm of colon (procedure) [code = 950217072] [facility] Future Scheduled Test 1972 00:00:00 Screening for malignant neoplasm of colon (procedure) [code = 039486160] [facility] Future Scheduled Test 1972 00:00:00 Sigmoidoscopy [code = Sigmoidoscopy] [facility] Future Scheduled Test 1972 00:00:00 Screening for malignant neoplasm of breast (procedure) [code = 791676175] [facility] Future Scheduled Test 1972 00:00:00 CT Colonography (combo) [code = CT Colonography (combo)] [facility] Future Scheduled Test 1972 00:00:00 Screening for malignant neoplasm of colon (procedure) [code = 660844324] [facility] Future Scheduled Test 1972 00:00:00 Screening for malignant neoplasm of colon (procedure) [code = 672599472] [facility] Future Scheduled Test 1972 00:00:00 Screening for malignant neoplasm of colon (procedure) [code = 384795076] [facility] Future Scheduled Test 1972 00:00:00 Screening for malignant neoplasm of colon (procedure) [code = 375980775] [facility] Future Scheduled Test 1972 00:00:00 Sigmoidoscopy [code = Sigmoidoscopy] [facility] Future Scheduled Test 1972 00:00:00 Screening for malignant neoplasm of breast (procedure) [code = 767647553] [facility] Future Scheduled Test 1972 00:00:00 CT Colonography (combo) [code = CT Colonography (combo)] [facility] Future Scheduled Test 1972 00:00:00 Screening for malignant neoplasm of colon (procedure) [code = 156372025] [facility] Future Scheduled Test 1972 00:00:00 Screening for malignant neoplasm of colon (procedure) [code = 134104222] [facility] Future Scheduled Test 1972 00:00:00 Screening for malignant neoplasm of colon (procedure) [code = 748190367] [facility] Future Scheduled Test 1972 00:00:00 Screening for malignant neoplasm of colon (procedure) [code = 033756779] [facility] Future Scheduled Test 1972 00:00:00 Sigmoidoscopy [code = Sigmoidoscopy] [facility] Future Scheduled Test 1972 00:00:00 Screening for malignant neoplasm of breast (procedure) [code = 269814321] [facility] Future Scheduled Test 1972 00:00:00 CT Colonography (combo) [code = CT Colonography (combo)] [facility] Future Scheduled Test 1972 00:00:00 Screening for malignant neoplasm of colon (procedure) [code = 713563180] [facility] Future Scheduled Test 1972 00:00:00 Screening for malignant neoplasm of colon (procedure) [code = 350747058] [facility] Future Scheduled Test 1972 00:00:00 Screening for malignant neoplasm of colon (procedure) [code = 714728662] [facility] Future Scheduled Test 1972 00:00:00 Screening for malignant neoplasm of colon (procedure) [code = 460200429] [facility] Future Scheduled Test 1972 00:00:00 Sigmoidoscopy [code = Sigmoidoscopy] [facility] Future Scheduled Test 1972 00:00:00 Screening for malignant neoplasm of breast (procedure) [code = 534651059] [facility] Future Scheduled Test 1972 00:00:00 CT Colonography (combo) [code = CT Colonography (combo)] [facility] Future Scheduled Test 1972 00:00:00 Screening for malignant neoplasm of colon (procedure) [code = 276696946] [facility] Future Scheduled Test 1972 00:00:00 Screening for malignant neoplasm of colon (procedure) [code = 872057024] [facility] Future Scheduled Test 1972 00:00:00 Screening for malignant neoplasm of colon (procedure) [code = 826873304] [facility] Future Scheduled Test 1972 00:00:00 Screening for malignant neoplasm of colon (procedure) [code = 970485906] [facility] Future Scheduled Test 1972 00:00:00 Sigmoidoscopy [code = Sigmoidoscopy] [facility] Future Scheduled Test 1972 00:00:00 Screening for malignant neoplasm of breast (procedure) [code = 026714124] [facility] Future Scheduled Test 1972 00:00:00 CT Colonography (combo) [code = CT Colonography (combo)] [facility] Future Scheduled Test 1972 00:00:00 Screening for malignant neoplasm of colon (procedure) [code = 250011587] [facility] Future Scheduled Test 1972 00:00:00 Screening for malignant neoplasm of colon (procedure) [code = 754231937] [facility] Future Scheduled Test 1972 00:00:00 Screening for malignant neoplasm of colon (procedure) [code = 403994409] [facility] Future Scheduled Test 1972 00:00:00 Screening for malignant neoplasm of colon (procedure) [code = 545679818] [facility] Future Scheduled Test 1972 00:00:00 Sigmoidoscopy [code = Sigmoidoscopy] [facility] Future Scheduled Test 1972 00:00:00 Screening for malignant neoplasm of breast (procedure) [code = 596072434] [facility] Future Scheduled Test 1972 00:00:00 CT Colonography (combo) [code = CT Colonography (combo)] [facility] Future Scheduled Test 1972 00:00:00 Screening for malignant neoplasm of colon (procedure) [code = 831962272] [facility] Future Scheduled Test 1972 00:00:00 Screening for malignant neoplasm of colon (procedure) [code = 195540412] [facility] Future Scheduled Test 1972 00:00:00 Screening for malignant neoplasm of colon (procedure) [code = 478740077] [facility] Future Scheduled Test 1972 00:00:00 Screening for malignant neoplasm of colon (procedure) [code = 384802480] [facility] Future Scheduled Test 1972 00:00:00 Sigmoidoscopy [code = Sigmoidoscopy] [facility] Future Scheduled Test 1972 00:00:00 Screening for malignant neoplasm of breast (procedure) [code = 716291184] [facility] Future Scheduled Test 1972 00:00:00 CT Colonography (combo) [code = CT Colonography (combo)] [facility] Future Scheduled Test 1972 00:00:00 Screening for malignant neoplasm of colon (procedure) [code = 474143800] [facility] Future Scheduled Test 1972 00:00:00 Screening for malignant neoplasm of colon (procedure) [code = 533890985] [facility] Future Scheduled Test 1972 00:00:00 Screening for malignant neoplasm of colon (procedure) [code = 548451368] [facility] Future Scheduled Test 1972 00:00:00 Screening for malignant neoplasm of colon (procedure) [code = 989815395] [facility] Future Scheduled Test 1972 00:00:00 Sigmoidoscopy [code = Sigmoidoscopy] [facility] Future Scheduled Test 1972 00:00:00 Screening for malignant neoplasm of breast (procedure) [code = 680133801] [facility] Future Scheduled Test 1972 00:00:00 CT Colonography (combo) [code = CT Colonography (combo)] [facility] Future Scheduled Test 1972 00:00:00 Screening for malignant neoplasm of colon (procedure) [code = 116517511] [facility] Future Scheduled Test 1972 00:00:00 Screening for malignant neoplasm of colon (procedure) [code = 791912378] [facility] Future Scheduled Test 1972 00:00:00 Screening for malignant neoplasm of colon (procedure) [code = 132349856] [facility] Future Scheduled Test 1972 00:00:00 Screening for malignant neoplasm of colon (procedure) [code = 925761677] [facility] Future Scheduled Test 1972 00:00:00 Sigmoidoscopy [code = Sigmoidoscopy] [facility] Future Scheduled Test 1972 00:00:00 Screening for malignant neoplasm of breast (procedure) [code = 238804661] [facility] Future Scheduled Test 1972 00:00:00 CT Colonography (combo) [code = CT Colonography (combo)] [facility] Future Scheduled Test 1972 00:00:00 Screening for malignant neoplasm of colon (procedure) [code = 556069257] [facility] Future Scheduled Test 1972 00:00:00 Screening for malignant neoplasm of colon (procedure) [code = 751383383] [facility] Future Scheduled Test 1972 00:00:00 Screening for malignant neoplasm of colon (procedure) [code = 346976456] [facility] Future Scheduled Test 1972 00:00:00 Screening for malignant neoplasm of colon (procedure) [code = 946248824] [facility] Future Scheduled Test 1972 00:00:00 Sigmoidoscopy [code = Sigmoidoscopy] [facility] Future Scheduled Test 1972 00:00:00 Screening for malignant neoplasm of breast (procedure) [code = 945909524] [facility] Future Scheduled Test 1972 00:00:00 CT Colonography (combo) [code = CT Colonography (combo)] [facility] Future Scheduled Test 1972 00:00:00 Screening for malignant neoplasm of colon (procedure) [code = 580699903] [facility] Future Scheduled Test 1972 00:00:00 Screening for malignant neoplasm of colon (procedure) [code = 017112035] [facility] Future Scheduled Test 1972 00:00:00 Screening for malignant neoplasm of colon (procedure) [code = 638338983] [facility] Future Scheduled Test 1972 00:00:00 Screening for malignant neoplasm of colon (procedure) [code = 582627330] [facility] Future Scheduled Test 1972 00:00:00 Sigmoidoscopy [code = Sigmoidoscopy] [facility] Future Scheduled Test 1972 00:00:00 Screening for malignant neoplasm of breast (procedure) [code = 154282839] [facility] Future Scheduled Test 1972 00:00:00 CT Colonography (combo) [code = CT Colonography (combo)] [facility] Future Scheduled Test 1972 00:00:00 Screening for malignant neoplasm of colon (procedure) [code = 444761526] [facility] Future Scheduled Test 1972 00:00:00 Screening for malignant neoplasm of colon (procedure) [code = 572282157] [facility] Future Scheduled Test 1972 00:00:00 Screening for malignant neoplasm of colon (procedure) [code = 521335874] [facility] Future Scheduled Test 1972 00:00:00 Screening for malignant neoplasm of colon (procedure) [code = 152681276] [facility] Future Scheduled Test 1972 00:00:00 Sigmoidoscopy [code = Sigmoidoscopy] [facility] Future Scheduled Test 1972 00:00:00 Screening for malignant neoplasm of breast (procedure) [code = 125478650] [facility] Future Scheduled Test 1972 00:00:00 CT Colonography (combo) [code = CT Colonography (combo)] [facility] Future Scheduled Test 1972 00:00:00 Screening for malignant neoplasm of colon (procedure) [code = 937938944] [facility] Future Scheduled Test 1972 00:00:00 Screening for malignant neoplasm of colon (procedure) [code = 470848565] [facility] Future Scheduled Test 1972 00:00:00 Screening for malignant neoplasm of colon (procedure) [code = 767466641] [facility] Future Scheduled Test 1972 00:00:00 Screening for malignant neoplasm of colon (procedure) [code = 172929114] [facility] Future Scheduled Test 1972 00:00:00 Sigmoidoscopy [code = Sigmoidoscopy] [facility] Future Scheduled Test 1972 00:00:00 Screening for malignant neoplasm of breast (procedure) [code = 348457361] [facility] Future Scheduled Test 1972 00:00:00 CT Colonography (combo) [code = CT Colonography (combo)] [facility] Future Scheduled Test 1972 00:00:00 Screening for malignant neoplasm of colon (procedure) [code = 777182364] [facility] Future Scheduled Test 1972 00:00:00 Screening for malignant neoplasm of colon (procedure) [code = 449470431] [facility] Future Scheduled Test 1972 00:00:00 Screening for malignant neoplasm of colon (procedure) [code = 371818056] [facility] Future Scheduled Test 1972 00:00:00 Screening for malignant neoplasm of colon (procedure) [code = 660230806] [facility] Future Scheduled Test 1972 00:00:00 Sigmoidoscopy [code = Sigmoidoscopy] [facility] Future Scheduled Test 1972 00:00:00 Screening for malignant neoplasm of breast (procedure) [code = 550294198] [facility] Future Scheduled Test 1972 00:00:00 CT Colonography (combo) [code = CT Colonography (combo)] [facility] Future Scheduled Test 1972 00:00:00 Screening for malignant neoplasm of colon (procedure) [code = 575669593] [facility] Future Scheduled Test 1972 00:00:00 Screening for malignant neoplasm of colon (procedure) [code = 162475444] [facility] Future Scheduled Test 1972 00:00:00 Screening for malignant neoplasm of colon (procedure) [code = 346992259] [facility] Future Scheduled Test 1972 00:00:00 Screening for malignant neoplasm of colon (procedure) [code = 325360159] [facility] Future Scheduled Test 1972 00:00:00 Sigmoidoscopy [code = Sigmoidoscopy] [facility] Goal Plan of Care Not e [code = 42004-8] Goal Plan of Care Not e [code = 77283-0] Goal Plan of Care Not e [code = 82222-1] Goal Plan of Care Not e [code = 84814-6] Goal Plan of Care Not e [code = 01069-5] Goal Plan of Care Not e [code = 00354-3] Goal Plan of Care Not e [code = 36808-5] Goal Plan of Care Not e [code = 32510-4] Goal Plan of Care Not e [code = 36012-3] Goal Plan of Care Not e [code = 59970-5] Goal Plan of Care Not e [code = 59365-2] Goal Plan of Care Not e [code = 62003-8] Goal Plan of Care Not e [code = 59837-1] Goal Plan of Care Not e [code = 67814-1] Goal Plan of Care Not e [code = 63841-5] Goal Plan of Care Not e [code = 12814-9] Goal Plan of Care Not e [code = 73933-4] Goal Plan of Care Not e [code = 36052-8] Goal Plan of Care Not e [code = 51173-8] Goal Plan of Care Not e [code = 75831-3] Goal Plan of Care Not e [code = 15623-1] Goal Plan of Care Not e [code = 44953-6] Goal Plan of Care Not e [code = 61063-2] Goal Plan of Care Not e [code = 43822-9] Goal Plan of Care Not e [code = 97281-1] Goal Plan of Care Not e [code = 31821-1] Goal Plan of Care Not e [code = 65311-7] Goal Plan of Care Not e [code = 78855-8] Goal Plan of Care Not e [code = 71953-2] Goal Plan of Care Not e [code = 40210-8] Goal Plan of Care Not e [code = 22284-9] Goal Plan of Care Not e [code = 92929-2] Goal Plan of Care Not e [code = 38746-8] Goal Plan of Care Not e [code = 28640-8] Goal Plan of Care Not e [code = 19478-7] Encounters Start Date/Time End Date/Time Encounter Type Admission Type Attending Clinicians [facility] Care Department Encounter ID Source 2023-06-16 09:32:36 Inpatient AYDEE DICKENS [facility] [id number] [facility] 2023-06-16 09:32:09 Inpatient EL ARIAYDEE Galan [facility] [id number] [facility] 2023-06-16 09:31:53 Inpatient EL ARIAYDEE Galan [facility] [id number] [facility] 2023-06-14 07:46:02 Inpatient AYDEE DICKENS [facility] [id number] [facility] 2023-06-14 07:39:22 Inpatient AYDEE DICKENS [facility] [id number] [facility] 2023-06-14 06:38:38 Inpatient AYDEE DICKENS [facility] [id number] [facility] 2023-06-13 13:44:18 Inpatient EL CARA BURGESS [facility] [id number] [facility] 2023-06-13 11:45:24 Inpatient AYDEE DICKENS [facility] [id number] [facility] 2023-05-08 11:21:00 Outpatient EL ADAM GARCIA [facility] Surgery [id number] [facility] 2023-04-01 14:26:29 Inpatient ER THOMAS LOZOYA [facility] [id number] [facility] 2023-03-31 09:24:52 Inpatient ER JEVONMARIAH CORREIA [facility] [id number] [facility] 2021-05-20 18:48:04 Emergency [facility] [id number] [facility] 2021-05-20 12:43:40 Emergency [facility] [id number] [facility] 2023-08-13 00:00:00 2023-08-13 00:00:00 Orders Only Quin Scruggs [facility] [id number] [facility] 2023-08-13 00:00:00 2023-08-13 00:00:00 Orders Only Quin Scruggs [facility] [id number] [facility] 2023-08-12 13:49:00 2023-08-12 16:12:00 Emergency X BRIAN BRYAN [facility] ERT [id number] [facility] 2023-08-12 13:49:00 2023-08-12 16:12:00 Emergency Brian Bryan [facility] 1.2.840.114 350.1.13.10 4.2.7.2.686 [id number] [facility] 2023-06-13 03:43:00 2023-06-16 19:45:00 Hospital Encounter ER Cara Burgess Sahar [facility] [id number] [facility] 2023-06-13 03:43:00 2023-06-16 19:45:00 Hospital Encounter Cara Burgess Sahar [facility] [id number] [facility] 2023-06-13 03:43:00 2023-06-16 19:45:00 Inpatient ER AYDEE GO [facility] Internal Med [id number] [facility] 2023-06-15 00:00:00 2023-06-15 00:00:00 Orders Only System, Provider Not In [facility] [id number] [facility] 2023-06-15 00:00:00 2023-06-15 00:00:00 Orders Only System, Provider Not In [facility] [id number] [facility] 2023-06-13 16:30:06 2023-06-13 16:30:06 Outpatient AYDEE DICKENS [facility] [id number] [facility] 2023-06-13 00:00:00 2023-06-13 00:00:00 Orders Only [facility] [id number] [facility] 2023-06-13 00:00:00 2023-06-13 00:00:00 Travel [facility] [id number] [facility] 2023-06-13 00:00:00 2023-06-13 00:00:00 Orders Only [facility] [id number] [facility] 2023-06-13 00:00:00 2023-06-13 00:00:00 Travel [facility] [id number] [facility] 2023-06-12 00:00:00 2023-06-12 00:00:00 Telephone Dallas Gomez [facility] [id number] [facility] 2023-06-12 00:00:00 2023-06-12 00:00:00 Telephone Dallas Gomez [facility] [id number] [facility] 2023-05-28 06:45:00 2023-06-04 17:36:00 Hospital Encounter Adam Brantley [facility] [id number] [facility] 2023-05-28 06:45:00 2023-06-04 17:36:00 Hospital Encounter Adam Garcia [facility] [id number] [facility] 2023-05-28 06:45:00 2023-06-04 17:36:00 Inpatient ADAM BRANTLEY [facility] Surgery [id number] [facility] 2023-06-01 09:10:00 2023-06-01 13:00:00 Anesthesia Event Harry Newsome Mujtaba Ahmad [facility] [id number] [facility] 2023-06-01 09:10:00 2023-06-01 13:00:00 Anesthesia Event Harry Newsome Mujtaba Ahmad [facility] [id number] [facility] 2023-06-01 09:00:00 2023-06-01 11:30:00 Surgery Adam Garcia [facility] [id number] [facility] 2023-06-01 09:00:00 2023-06-01 11:30:00 Surgery Adam Garcia [facility] [id number] [facility] 2023-06-01 09:47:57 2023-06-01 09:47:57 Outpatient ADAM BRANTLEY [facility] [id number] [facility] 2023-06-01 09:40:34 2023-06-01 09:40:34 Outpatient ADAM BRANTLEY [facility] [id number] [facility] 2023-05-31 09:25:55 2023-05-31 23:59:00 Inpatient ADAM BRANTLEY [facility] [id number] [facility] 2023-05-31 09:00:00 2023-05-31 23:59:00 Hospital Encounter Adam Garcia Adi [facility] [id number] [facility] 2023-05-31 09:00:00 2023-05-31 23:59:00 Hospital Encounter Adam Garcia Adi [facility] [id number] [facility] 2023-05-28 18:15:29 2023-05-28 18:15:29 Outpatient ADAM BRANTLEY [facility] [id number] [facility] 2023-05-28 08:30:00 2023-05-28 11:54:00 Anesthesia Event Yue Bui [facility] [id number] [facility] 2023-05-28 08:30:00 2023-05-28 11:54:00 Anesthesia Event Yue Bui [facility] [id number] [facility] 2023-05-28 11:41:14 2023-05-28 11:41:14 Outpatient ADAM BRANTLEY [facility] [id number] [facility] 2023-05-28 08:30:00 2023-05-28 11:00:00 Surgery Adam Garcia Adi [facility] [id number] [facility] 2023-05-28 08:30:00 2023-05-28 11:00:00 Surgery Adam Garcia Adi [facility] [id number] [facility] 2023-05-28 10:00:47 2023-05-28 10:00:47 Outpatient ADAM BRANTLEY [facility] [id number] [facility] 2023-05-28 00:00:00 2023-05-28 00:00:00 Travel [facility] [id number] [facility] 2023-05-28 00:00:00 2023-05-28 00:00:00 Travel [facility] [id number] [facility] 2023-05-26 09:00:00 2023-05-26 09:00:00 Hospital Encounter Adam Garcia Adi [facility] [id number] [facility] 2023-05-26 09:00:00 2023-05-26 09:00:00 Hospital Encounter Adam Garcia Adi [facility] [id number] [facility] 2023-05-26 00:00:00 2023-05-26 00:00:00 Outpatient ADAM BRANTLEY SLERigober[facility] [id number] [facility] 2023-05-26 00:00:00 2023-05-26 00:00:00 Outpatient NICOLETTE SLERigoberto [facility] [id number] [facility] 2023-05-26 00:00:00 2023-05-26 00:00:00 Travel [facility] [id number] [facility] 2023-05-26 00:00:00 2023-05-26 00:00:00 Travel [facility] [id number] [facility] 2023-05-13 11:43:03 2023-05-13 11:43:03 Outpatient [facility] Kailey Martínez 2023-05-12 00:00:00 2023-05-12 00:00:00 Orders Adam Oneill [facility] [id number] [facility] 2023-05-12 00:00:00 2023-05-12 00:00:00 Orders Adam Oneill [facility] [id number] [facility] 2023-05-08 14:11:21 2023-05-08 14:11:21 Outpatient [facility] [id number] Adria Martínez 2023-03-29 19:25:00 2023-04-02 20:48:00 Inpatient ER THOMAS LOZOYA [facility] [id number] [facility] 2023-03-29 19:25:00 2023-04-02 20:48:00 Hospital Encounter ER Connie Davey, Mariah Lozoya, Thomas Hopkins [facility] [id number] [facility] 2023-03-29 19:25:00 2023-04-02 20:48:00 Hospital Encounter Connie Davey, [id number] [facility] 2023-03-31 08:32:56 2023-03-31 00:00:00 Inpatient ER MARIAH ALDRIDGE SLERigoberto [facility] [id number] [facility] 2023-03-30 10:24:12 2023-03-30 23:59:00 Outpatient ER CONNIE DAVEY [facility] [id number] [facility] 2023-03-30 09:40:00 2023-03-30 23:59:00 Hospital Encounter oCnnie Davey [facility] [id number] [facility] 2023-03-30 09:40:00 2023-03-30 23:59:00 Hospital Encounter Connie Davey [facility] [id number] [facility] 2023-03-30 13:46:20 2023-03-30 13:46:20 Outpatient ER MARIAH ALDRIDGE SLERigoberto [facility] [id number] [facility] 2023-03-30 13:46:14 2023-03-30 13:46:14 Outpatient ER MARIAH ALDRIDGE SLERigoberto SLE [id number] [facility] 2023-03-30 10:24:04 2023-03-30 10:24:04 Outpatient ER CONNIE DAVEY [facility] [id number] [facility] 2023-03-30 00:00:00 2023-03-30 00:00:00 Orders Only [facility] [id number] [facility] 2023-03-30 00:00:00 2023-03-30 00:00:00 Travel [facility] [id number] [facility] 2023-03-30 00:00:00 2023-03-30 00:00:00 Orders Only [facility] [id number] [facility] 2023-03-30 00:00:00 2023-03-30 00:00:00 Travel [facility] [id number] [facility] 2022-12-11 08:56:00 2022-12-11 15:29:00 Emergency X Alfonso ALVARADO [facility] ERT [id number] [facility] 2022-12-11 08:56:00 2022-12-11 15:29:00 Emergency Alfonso Alvaradoge [facility] 1.2.840.114 350.1.13.10 4.2.7.2.686 [id number] [facility] 2022-11-17 17:25:00 2022-11-18 01:19:00 Emergency X RITCHIE WARREN [facility] ERT [id number] [facility] 2022-11-17 17:25:00 2022-11-18 01:19:00 Emergency Ritchie Warren [facility] 1.2.840.114 350.1.13.10 4.2.7.2.686 [id number] [facility] 2022-08-28 00:00:00 2022-08-28 00:00:00 Patient Outreach Shy BeckmanCorbin RODRIGO [facility] 1.2.840.114 350.1.13.10 4.2.7.2.686 [id number] [facility] 2022-08-20 00:00:00 2022-08-20 00:00:00 Patient Outreach Shy Beckman ANDREZCHRISTIAN 1.2.840.114 350.1.13.10 4.2.7.2.686 [id number] [facility] 2022-08-02 17:30:00 2022-08-03 14:29:00 Hospital Encounter Halima Guan Kinjal M Ibe, Chimkama Ngozi Cynthia [facility] [id number] [facility] 2022-08-02 17:30:00 2022-08-03 14:29:00 Outpatient ER PARRISH WHEATLEY [facility] Neurology [id number] [facility] 2022-08-03 00:00:00 2022-08-03 00:00:00 Orders Only [facility] [id number] [facility] 2022-08-02 00:00:00 2022-08-02 00:00:00 Travel [facility] [id number] [facility] 2022-07-31 11:42:00 2022-08-01 21:48:00 Inpatient X LORENZA LOWRY [facility] [id number] [facility] 2022-07-31 11:42:00 2022-08-01 21:48:00 Hospital Encounter Sav Rondon Yaman [facility] 1..840.114 350.1.13.10 4.2.7.2.686 [id number] [facility] 2022-08-01 00:00:00 2022-08-01 00:00:00 Transition of Care NicoleMaria Teresa pachecoJono [facility] 1.2.840.114 350.1.13.10 4.2.7.2.686 [id number] [facility] 2022-07-28 14:41:38 2022-07-28 14:41:38 Outpatient [facility] [id number] Adria Martínez 2022-07-28 00:00:00 2022-07-28 00:00:00 Outpatient Visit [id number] 2022-07-24 13:24:40 2022-07-24 13:24:40 Outpatient [facility] [id number] Adria Martínez 2022-05-23 14:51:01 2022-05-23 14:51:01 Outpatient [facility] [id number] Adria Martínez 2022-05-23 00:00:00 2022-05-23 00:00:00 Outpatient Visit [id number] 2022-05-04 20:22:00 2022-05-08 14:44:00 Outpatient X ANNEMARIE FITZPATRICK [facility] [id number] [facility] 2022-05-04 20:22:00 2022-05-08 14:44:00 [facility] 1.840.114 350.1.13.10 4.2.7.2.686 [id number] [facility] 2022-04-13 13:06:00 2022-04-15 15:00:00 Inpatient X CONRAD [facility] [id number] [facility] 2022-04-13 13:06:00 2022-04-15 15:00:00 Hospital Encounter Sapna Vargas [facility] 1.840.114 350.1.13.10 4.2.7.2.686 [id number] [facility] 2022-02-19 10:20:00 2022-02-19 10:30:00 Imm/Inj Visit Vaccine, Zelienople Jose Santiago [facility] 1.2.840.114 350.1.13.10 4.2.7.2.686 [id number] [facility] 2022-02-19 10:20:00 2022-02-19 10:20:00 Outpatient Terry PAK JOSE [facility] [id number] [facility] 2021-11-23 15:07:00 2021-11-23 17:03:00 Emergency NICHELLE BRADY [facility] ERT [id number] [facility] 2021-11-23 15:07:00 2021-11-23 17:03:00 Emergency Alcon SavNichelle Lovett [facility] 1.2.840.114 350.1.13.10 4.2.7.2.686 [id number] [facility] 2021-11-21 09:40:00 2021-11-21 09:40:00 Outpatient Terry [facility] [id number] [facility] 2021-05-24 09:30:00 2021-05-24 09:30:00 Outpatient JOSE MENDOZA [facility] [id number] [facility] 2021-05-24 08:47:51 2021-05-24 08:57:51 Imm/Inj Visit Vaccine, Zelienople [facility]o [facility] 1.2.840.114 350.1.13.10 4.2.7.2.686 [id number] [facility] 2021-05-03 09:40:00 2021-05-03 09:59:35 Outpatient Terry PASHA, JOSE [facility] [id number] [facility] 2021-05-03 09:17:43 2021-05-03 09:59:35 Imm/Inj Visit Vaccine, ZelienopleCarlito Kabaabdirizak Jose [facility] 1.2.840.114 350.1.13.10 4.2.7.2.686 [id number] [facility] 2021-04-16 00:00:00 2021-04-16 00:00:00 Orders Only Doctor Unassigned, Govan [facility] 1.2.840.114 350.1.13.10 4.2.7.2.686 [id number] [facility] 2021-03-17 00:00:00 2021-03-17 00:00:00 Telephone Miky Nava [facility] 1.2.840.114 350.1.13.10 4.2.7.2.686 [id number] [facility] 2021-03-16 20:08:00 2021-03-16 23:24:00 Emergency Fabrice Chakraborty [facility] 1.2840.114 350.1.13.10 4.2.7.2.686 [id number] [facility] 2021-03-14 18:59:34 2021-03-14 20:19:13 Urgent Care Lydia Desouza Unknown, Attending [facility] 1.2840.114 350.1.13.10 4.2.7.2.686 [id number] [facility] 2021-03-14 19:00:00 2021-03-14 19:00:00 Outpatient R UNKNOWN, ATTENDING [facility] [id number] [facility] 2021-02-19 10:49:00 2021-02-19 14:48:00 Emergency Anali Monroy [facility] 1.2.840.114 350.1.13.10 4.2.7.2.686 [id number] [facility] 2019-03-09 00:00:00 2019-03-09 00:00:00 [facility] 1.2.840.114 350.1.13.10 4.2.7.2.686 [id number] 2019-03-09 00:00:00 2019-03-09 00:00:00 [facility] 1.2.840.114 350.1.13.10 4.2.7.2.686 [id number] [facility] Results Test Description Test Time Test Comments Results Result [id number]:00:09* Test Item Value Reference Range Interpretation Comme nts CULTURE (BEAKER) (test code = 1095) No growth in 5 days BLOOD [id number] 07:00:09* Test Item Value Reference Range Interpretation Comme nts CULTURE (BEAKER) (test code = 1095) No growth in 5 days T-SPOT(R).[id number] 18:35:00* Test Item Value Reference Range Interpretation Comme nts T-SPOT.TB (test code = 2256486) Negative SeeBelow Normal Value: Ne gativeA negative [...] CORRECTED FOR NEG CONTROL (test code = 8745063) 1 PANEL B SPOT COUNT CORRECTED FOR NEG CONTROL (test code = 8533023) 0 NEGATIVE CONTROL (test code = 1353524) Passed POSITIVE CONTROL (test code = 0491900) Passed LYNDSAY (test code = LYNDSAY) [id number] [facility][id number] 18:35:00* Test Item Value Reference Range Interpretation Comme nts T-SPOT.TB (test code = 2109559) Negative SeeBelow Normal Value: Ne gativeA negative [...] CORRECTED FOR NEG CONTROL (test code = 4250479) 1 PANEL B SPOT COUNT CORRECTED FOR NEG CONTROL (test code = 0487887) 0 NEGATIVE CONTROL (test code = 0067347) Passed POSITIVE CONTROL (test code = 6659932) Passed LYNDSAY (test code = LYNDSAY) [id number] [facility][id number] 18:35:00* Test Item Value Reference Range Interpretation Comme nts T-SPOT.TB (test code = 5630902) Negative SeeBelow Normal Value: Ne gativeA negative [...] CORRECTED FOR NEG CONTROL (test code = 7221819) 1 PANEL B SPOT COUNT CORRECTED FOR NEG CONTROL (test code = 20150905) 0 NEGATIVE CONTROL (test code = 8589745) Passed POSITIVE CONTROL (test code = 3481322) Passed LYNDSAY (test code = LYNDSAY) 13135242 [facility][id number] 18:35:00* Test Item Value Reference Range Interpretation [...] CORRECTED FOR NEG CONTROL (test code = 5955409) 0 NEGATIVE CONTROL (test code = 4607717) Passed POSITIVE CONTROL (test code = 0861973) Passed LYNDSAY (test code = LYNDSAY) [id number] [facility][id number] 18:35:00* Test Item Value Reference Range Interpretation Comme nts T-SPOT.TB (test code = 4293640) Negative SeeBelow Normal Value: Ne gativeA negative [...] 20150907) Passed LYNDSAY (test code = LYNDSAY) 21484865 [facility][id number] 18:35:00* Test Item Value Reference Range Interpretation [...] 20150905) 0 NEGATIVE CONTROL (test code = 4269453) Passed POSITIVE CONTROL (test code = 9985261) Passed LYNDSAY (test code = LYNDSAY) [id number] [facility][id number] 18:35:00* Test Item Value Reference Range Interpretation Comme [facility] T-SPOT.TB (test code = 8547986) Negative SeeBelow Normal Value: Ne gativeA negative [...] CORRECTED FOR NEG CONTROL (test code = 9637070) 1 PANEL B SPOT COUNT CORRECTED FOR NEG CONTROL (test code = 1388170) 0 NEGATIVE CONTROL (test code = 3813530) Passed POSITIVE CONTROL (test code = 4087481) Passed LYNDSAY (test code = LYNDSAY) [id number] [facility][id number] 18:35:00* Test Item Value Reference Range Interpretation Comme [facility] T-SPOT.TB (test code = 6608680) Negative SeeBelow Normal Value: Ne gativeA negative [...] CORRECTED FOR NEG CONTROL (test code = 7110450) 1 PANEL B SPOT COUNT CORRECTED FOR NEG CONTROL (test code = 0776029) 0 NEGATIVE CONTROL (test code = 9087974) Passed POSITIVE CONTROL (test code = 5730797) Passed LYNDSAY (test code = LYNDSAY) 14822975 [facility][id number] 18:35:00* Test Item Value Reference Range Interpretation [...] CORRECTED FOR NEG CONTROL (test code = 7826877) 0 NEGATIVE CONTROL (test code = 9148886) Passed POSITIVE CONTROL (test code = 3033913) Passed LYNDSAY (test code = LYNDSAY) 58426616 [facility][id number] 18:35:00* Test Item Value Reference Range Interpretation [...] CORRECTED FOR NEG CONTROL (test code = 2667022) 0 NEGATIVE CONTROL (test code = 8815325) Passed POSITIVE CONTROL (test code = 20150907) Passed LYNDSAY (test code = LYNDSAY) [id number] [facility][id number] 18:35:00* Test Item Value Reference Range Interpretation [...] CORRECTED FOR NEG CONTROL (test code = 7625179) 0 NEGATIVE CONTROL (test code = 9652438) Passed POSITIVE CONTROL (test code = 4871009) Passed LYNDSAY (test code = LYNDSAY) [id number] [facility][id number] 18:35:00* Test Item Value Reference Range Interpretation Comme nts T-SPOT.TB (test code = 0010880) Negative SeeBelow Normal Value: Ne gativeA negative [...] CORRECTED FOR NEG CONTROL (test code = 4113338) 1 PANEL B SPOT COUNT CORRECTED FOR NEG CONTROL (test code = 8865149) 0 NEGATIVE CONTROL (test code = 3743755) Passed POSITIVE CONTROL (test code = 4322953) Passed LYNDSAY (test code = LYNDSAY) [id number] [facility][id number] 18:35:00* Test Item Value Reference Range Interpretation Comme [facility] T-SPOT.TB (test code = 5079600) Negative SeeBelow Normal Value: Ne gativeA negative [...] CORRECTED FOR NEG CONTROL (test code = 3933116) 0 NEGATIVE CONTROL (test code = 9200090) Passed POSITIVE CONTROL (test code = 9608607) Passed LYNDSAY (test code = LYNDSAY) [id number] [facility][id number] 18:35:00* Test Item Value Reference Range Interpretation Comme nts T-SPOT.TB (test code = 8872345) Negative SeeBelow Normal Value: Ne gativeA negative [...] 20150907) Passed LYNDSAY (test code = LYNDSAY) [id number] [facility] [id number] 13:41:18 Transesophageal Echocardiography Report (CHETAN) Demographics Patient Name YUE LAWS Date of Study 06/16/2023 [place] Gender Female Visit Number [id number] Race Room Number 1055 Number Date of 1970 Referring Physician Age 53 year(s) [employer] Operator Interpreting Physician Brian MDProcedure Type of Study [...] Tricuspid Valve Partially visualized. Pulmonic Valve Not visualized.[facility] [id number] 09:55:41* Test Item Value Reference Range Interpretation Comme nts Result (test code = 6463-4) No MRSA isolated [facility] [id number] 09:55:41* Test Item Value Reference Range Interpretation Comme nts Result (test code = 6463-4) No MRSA isolated [facility] [id number] 09:55:41* Test Item Value Reference Range Interpretation Comme nts Result (test code = 6463-4) No MRSA isolated [facility] [id number] 09:55:41* Test Item Value Reference Range Interpretation Comme nts Result (test code = 6463-4) No MRSA isolated [facility] [id number] 09:55:41* Test Item Value Reference Range Interpretation Comme nts Result (test code = 6463-4) No MRSA isolated [facility] [id number] 09:55:41* Test Item Value Reference Range Interpretation Comme nts Result (test code = 6463-4) No MRSA isolated [facility] [id number] 09:55:41* Test Item Value Reference Range Interpretation Comme nts Result (test code = 6463-4) No MRSA isolated [facility] [id number] 09:55:41* Test Item Value Reference Range Interpretation Comme nts Result (test code = 6463-4) No MRSA isolated [facility] [id number] 09:55:41* Test Item Value Reference Range Interpretation Comme nts Result (test code = 6463-4) No MRSA isolated [facility] [id number] 09:55:41* Test Item Value Reference Range Interpretation Comme nts Result (test code = 6463-4) No MRSA isolated [facility] [id number] 09:55:41* Test Item Value Reference Range Interpretation Comme nts Result (test code = 6463-4) No MRSA isolated [facility] [id number] 09:55:41* Test Item Value Reference Range Interpretation Comme nts Result (test code = 6463-4) No MRSA isolated [facility] [id number] 09:55:41* Test Item Value Reference Range Interpretation Comme nts Result (test code = 6463-4) No MRSA isolated [facility] [id number] 09:55:41* Test Item Value Reference Range Interpretation Comme nts Result (test code = 6463-4) No [id number]* Test Item Value Reference Range Interpretation Comme nts CULTURE (BEAKER) (test code = 1095) No MRSA isolated CRYPTOCOCCAL [id number] 15:50:36* Test Item Value Reference Range Interpretation Comme nts CRYPTOCOCCAL ANTIGEN, SERUM (BEAKER) (test code = 1828) Negative Negative, Interference SPUTUM CULTURE + GRAM [id number] 10:30:11* Test Item Value Reference Range Interpretation [...] GRAM STAIN RESULT (BEAKER) (test code = 453386) 10-15 epithelial cells GRAM STAIN RESULT (BEAKER) (test code = 953772) 2+ gram positive cocci in chains and pairs GRAM STAIN RESULT (BEAKER) (test code = 301530) 1+ gram negative rods GRAM STAIN RESULT (BEAKER) (test code = 350795) 1+ yeast 2+ Normal respiratory rebel presentVANCOMYCIN LEVEL, [id number] 06:41:26* Test Item Value Reference Range Interpretation Comme nts VANCOMYCIN TROUGH (BEAKER) ( test code = 522) 17.0 ug/mL 10.0-20.0 Full Stack Php Developer ID - ADMINECHO W CONTRAST & OTNNJLS3499-03-12 13:44:03Transthoracic Echocardiography Report (TTE) Demographics Patient Name YUE LAWS Date of Study 06/14/2023 [place] Gender Female Visit Number [id number] Race Room Number 1055 Number Date of 1970 Referring Aydee Go MD Physician Age 53 year(s) [employer] Operator James Albarran RDCS Interpreting Mauricio Bonilla, Physician MDProcedure Type of Study TTE procedure:2DECHO [...] Velocity: 0.85 m/s Peak Gradient: 2.[address] [facility] Medical CenterHEMOGLOBIN [id number] 09:26:42* Test Item Value Reference Range Interpretation [...] 5.7- 6.4% indicates increased risk for diabetes (prediabetes)."Full Stack Php Developer ID - ADMOperator ID - ADMECG 12 [id number] 09:06:12Ventricular Rate 97 BPMAtrial Rate 97 BPMP-R Interval 146 msQRS Duration 96 msQ-T Interval 378 msQTC Calculation(Dimas) 480 msP [place] 68 degreesR [place] 107 degreesT [place] 18 degrees Suspect arm leadreversal, interpretation assumes no reversalNormal sinus rhythmRightward axisNonspecific T wave abnormalityAbnormal ECGWhen compared with ECG of 11-SEP-2023 13:06,QRS axis Shifted rightConfirmed by Luis Lopez ([id number]) on 06/14/2023 9:06:07 [facility] pmdd0935-37-92 09:06:12Ventricular Rate 97 BPMAtrial Rate 97 BPMP-R Interval 146 msQRS Duration 96 msQ-T Interval 378 msQTC Calculation(Connerzeyury) 480 msP [place] 68 degreesR [place] 107 degreesT [place] 18 degrees Suspect arm leadreversal, interpretation assumes no reversalNormal sinus rhythmRightward axisNonspecific T wave abno rmalityAbnormal ECGWhen compared with ECG of 30-MAR-2023 13:06,QRS axis Shifted rightConfirmed by Luis Lopez ([id number]) on 06/14/2023 9:06:07 [facility] HospitalBASIC METABOLIC [id number] 04:48:18* Test Item Value Reference Range Interpretation [...] GFR is not applicable for dialysis patients Full Stack Php Developer ID - ADMINCBC (HEMOGRAM ONLY)2023-06-14 04:22:50* Test [...] 413) 0 /100 WBC 0-0 Strep pneumoniae [id number] 23:34:41* Test Item Value Reference Range Interpretation Comme nts Strep pneumoniae Antigen (test code = 21447-0) Presumptive negative for pneumococcal pneumonia - see [...] the test. Lab Interpretation (test code = 40324-1) [facility] auluhux9795-52-27 23:34:41* Test Item Value Reference Range Interpretation Comme nts Strep pneumoniae Antigen (test code = 71602-0) Presumptive negative for pneumococcal pneumonia - see [...] the test. Lab Interpretation (test code = 54038-1) [facility] gnltitw9263-61-54 23:34:41* Test Item Value Reference Range Interpretation Comme nts Strep pneumoniae Antigen (test code = 75617-7) Presumptive negative for pneumococcal pneumonia - see [...] the test. Lab Interpretation (test code = 05041-2) [facility] pneumoniae fxuohlw3665-65-61 23:34:41* Test Item Value Reference Range Interpretation Comme nts Strep pneumoniae Antigen (test code = 12596-7) Presumptive negative for pneumococcal pneumonia - see [...] the test. Lab Interpretation (test code = 01524-9) [facility] pneumoniae krfnegf1206-15-60 23:34:41* Test Item Value Reference Range Interpretation Comme nts Strep pneumoniae Antigen (test code = 03114-2) Presumptive negative for pneumococcal pneumonia - see [...] the test. Lab Interpretation (test code = 18362-1) [facility] pneumoniae gcltqvc3758-42-05 23:34:41* Test Item Value Reference Range Interpretation Comme nts Strep pneumoniae Antigen (test code = 22924-3) Presumptive negative for pneumococcal pneumonia - see [...] the test. Lab Interpretation (test code = 30274-6) [facility] pneumoniae zfvoduh4620-29-39 23:34:41* Test Item Value Reference Range Interpretation Comme nts Strep pneumoniae Antigen (test code = 23688-4) Presumptive negative for pneumococcal pneumonia - see [...] the test. Lab Interpretation (test code = 43283-0) [facility] pneumoniae lzwgwie5636-63-44 23:34:41* Test Item Value Reference Range Interpretation Comme nts Strep pneumoniae Antigen (test code = 73472-2) Presumptive negative for pneumococcal pneumonia - see [...] the test. Lab Interpretation (test code = 42634-4) [facility] pneumoniae qjdaarp1452-81-25 23:34:41* Test Item Value Reference Range Interpretation Comme nts Strep pneumoniae Antigen (test code = 30964-9) Presumptive negative for pneumococcal pneumonia - see [...] the test. Lab Interpretation (test code = 54527-4) [facility] pneumoniae dhxtwag0673-45-91 23:34:41* Test Item Value Reference Range Interpretation Comme nts Strep pneumoniae Antigen (test code = 19928-4) Presumptive negative for pneumococcal pneumonia - see [...] the test. Lab Interpretation (test code = 21237-7) [facility] pneumoniae [id number] 23:34:41* Test Item Value Reference Range Interpretation Comme nts Strep pneumoniae Antigen (test code = 17649-9) Presumptive negative for pneumococcal pneumonia - see [...] the test. Lab Interpretation (test code = 42402-5) [facility] pneumoniae nahatug0024-34-93 23:34:41* Test Item Value Reference Range Interpretation Comme nts Strep pneumoniae Antigen (test code = 85725-4) Presumptive negative for pneumococcal pneumonia - see [...] the test. Lab Interpretation (test code = 62194-1) Normal [facility] pneumoniae bilcvwq2343-02-91 23:34:41* Test Item Value Reference Range Interpretation Comme nts Strep pneumoniae Antigen (test code = 12449-8) Presumptive negative for pneumococcal pneumonia - see [...] the test. Lab Interpretation (test code = 24990-7) [facility] pneumoniae aogqztb0623-70-10 23:34:41* Test Item Value Reference Range Interpretation Comme nts Strep pneumoniae Antigen (test code = 32541-1) Presumptive negative for pneumococcal pneumonia - see [...] the test. Lab Interpretation (test code = 57626-2) Normal [facility]uraTREP PNEUMONIAE [id number] 23:34:41* Test Item Value Reference Range Interpretation [...] detection limit of the test. Legionella antigen, hyywm5985-11-79 23:29:07* Test Item Value Reference Range Interpretation Comme nts Legionella Urine Antigen (test code = 06686-1) Negative - see comment Negative Negative for L. pneumophila serogroup 1 antigen, suggesting no recent or current infection with this serogroup. Legionellosis cannot be ruled out since other serogroups and species may cause disease. Lab Interpretation (test code = 81679-5) [facility] CenterLegion[facility] antigen, gacfi3915-56-85 23:29:07* Test Item Value Reference Range Interpretation Comme nts Legionella Urine Antigen (test code = 19838-9) Negative - see comment Negative Negative for L. pneumophila serogroup 1 antigen, suggesting no recent or current infection with this serogroup. Legionellosis cannot be ruled out since other serogroups and species may cause disease. Lab Interpretation (test code = 50888-4) Normal [facility] CenterLegionella antigen, [id number] 23:29:07* Test Item Value Reference Range Interpretation Comme nts Legionella Urine Antigen (test code = 80231-7) Negative - see comment Negative Negative for L. pneumophila serogroup 1 antigen, suggesting no recent or current infection with this serogroup. Legionellosis cannot be ruled out since other serogroups and species may cause disease. Lab Interpretation (test code = 41331-5) Normal [facility] CenterLegionella antigen, ccqwb9060-15-42 23:29:07* Test Item Value Reference Range Interpretation Comme nts Legionella Urine Antigen (test code = 15633-0) Negative - see comment Negative Negative for L. pneumophila serogroup 1 antigen, suggesting no recent or current infection with this serogroup. Legionellosis cannot be ruled out since other serogroups and species may cause disease. Lab Interpretation (test code = 52489-2) [facility] CenterLegionella antigen, [id number] 23:29:07* Test Item Value Reference Range Interpretation Comme nts Legionella Urine Antigen (test code = 72095-2) Negative - see comment Negative Negative for L. pneumophila serogroup 1 antigen, suggesting no recent or current infection with this serogroup. Legionellosis cannot be ruled out since other serogroups and species may cause disease. Lab Interpretation (test code = 80919-2) [facility] CenterLegionella antigen, lmvlq8844-20-47 23:29:07* Test Item Value Reference Range Interpretation Comme nts Legionella Urine Antigen (test code = 56416-7) Negative - see comment Negative Negative for L. pneumophila serogroup 1 antigen, suggesting no recent or current infection with this serogroup. Legionellosis cannot be ruled out since other serogroups and species may cause disease. Lab Interpretation (test code = 89087-2) [facility] CenterLegionella antigen, [id number] 23:29:07* Test Item Value Reference Range Interpretation Comme nts Legionella Urine Antigen (test code = 02284-3) Negative - see comment Negative Negative for L. pneumophila serogroup 1 antigen, suggesting no recent or current infection with this serogroup. Legionellosis cannot be ruled out since other serogroups and species may cause disease. Lab Interpretation (test code = 43405-5) [facility] CenterLegionella antigen, [id number] 23:29:07* Test Item Value Reference Range Interpretation Comme nts Legionella Urine Antigen (test code = 92355-9) Negative - see comment Negative Negative for L. pneumophila serogroup 1 antigen, suggesting no recent or current infection with this serogroup. Legionellosis cannot be ruled out since other serogroups and species may cause disease. Lab Interpretation (test code = 24292-9) [facility] CenterLegionella antigen, [id number] 23:29:07* Test Item Value Reference Range Interpretation Comme nts Legionella Urine Antigen (test code = 44394-1) Negative - see comment Negative Negative for L. pneumophila serogroup 1 antigen, suggesting no recent or current infection with this serogroup. Legionellosis cannot be ruled out since other serogroups and species may cause disease. Lab Interpretation (test code = 25796-7) [facility] CenterLegionella antigen, dimur5817-35-30 23:29:07* Test Item Value Reference Range Interpretation Comme nts Legionella Urine Antigen (test code = 60736-1) Negative - see comment Negative Negative for L. pneumophila serogroup 1 antigen, suggesting no recent or current infection with this serogroup. Legionellosis cannot be ruled out since other serogroups and species may cause disease. Lab Interpretation (test code = 65196-1) [facility] CenterLegionella antigen, jawse2535-12-46 23:29:07* Test Item Value Reference Range Interpretation Comme nts Legionella Urine Antigen (test code = 35033-3) Negative - see comment Negative Negative for L. pneumophila serogroup 1 antigen, suggesting no recent or current infection with this serogroup. Legionellosis cannot be ruled out since other serogroups and species may cause disease. Lab Interpretation (test code = 90716-8) [facility] CenterLegionella antigen, [id number] 23:29:07* Test Item Value Reference Range Interpretation Comme nts Legionella Urine Antigen (test code = 83215-4) Negative - see comment Negative Negative for L. pneumophila serogroup 1 antigen, suggesting no recent or current infection with this serogroup. Legionellosis cannot be ruled out since other serogroups and species may cause disease. Lab Interpretation (test code = 42066-8) [facility] CenterLegionella antigen, [id number] 23:29:07* Test Item Value Reference Range Interpretation Comme nts Legionella Urine Antigen (test code = 57012-6) Negative - see comment Negative Negative for L. pneumophila serogroup 1 antigen, suggesting no recent or current infection with this serogroup. Legionellosis cannot be ruled out since other serogroups and species may cause disease. Lab Interpretation (test code = 78659-4) [facility] CenterLegionella antigen, fmhdr5929-75-27 23:29:07* Test Item Value Reference Range Interpretation Comme nts Legionella Urine Antigen (test code = 34085-8) Negative - see comment Negative Negative for L. pneumophila serogroup 1 antigen, suggesting no recent or current infection with this serogroup. Legionellosis cannot be ruled out since other serogroups and species may cause disease. Lab Interpretation (test code = 68316-7) Normal [facility] CenterLEGIONELLA ANTIGEN, [id number] 23:29:07* Test Item Value Reference Range Interpretation Comme nts L. PNEUMOPHILA SEROGP 1 UR AG (BEAKER) (test code = 1156) Negative - see comment Negative Negative for L. pneumophila serogroup 1 antigen, suggesting no recent or current infection with this serogroup. Legionellosis cannot be ruled out since other serogroups and species may cause disease. Venous doppler arm, gkqx9303-06-47 20:05:32PV LAB - Upper Extremities Veins Demographics Patient Name YUE LAWS Date of Study 06/13/2023 [place] Age 53 Visit Number [id number] Gender Female Accession Number [id number] Date ofBirth 1970 Referring Cara Burgess Room Number 1055 Physician [employer] Operator Lisa Ruiz Interpreting John Solorio, Physician FellowProcedureType of Study: Veins: Upper Extremities Veins, VENOUS DOPPLER ARM, LEFT.Indications for Study:Left arm pain .Patient Status:MICHAEL.Study Loca tion:Portable.Technical Quality:Adequate visualization. - Results were reported to:Lina CAMPOS@16:50 pm .Risk FactorsHistory of Disease+ + + +!Diagnosis !Date !Comments !+ + + +!History/Risk Factors: !03/30/2023!CHF, CVA, HTN. !+ -----+ + +ImpressionsLeft Impression1. There is no deep [...] in cm/s ; Diameters are [facility] ANTIGEN WITH HIV-1/2 CPNRKCGM7847-16-02 18:36:40* Test Item Value Reference Range Interpretation Comme nts HIV-1 ANTIGEN WITH HIV 1\\T\\2 ANTIBODY (2) (LATOYA) (test code = 2586) Nonreactive Nonreactive MR lumbar spine without & with IV eiofpyns8120-80-78 14:53:29MR LUMBAR SPINE WITH & WITHOUT IV [...] x 1.7x 1.7 cm. Dorsal paraspinal musculature N6ysyshbmozyfsmz. Postcontrast imaging demonstrates mild peripheralenhancement of the dorsal paraspinal fluid collection. Left adrenalgland 2.9 cm nodule.[facility]MR [facility] WITH & WITHOUT IV [id number] 14:53:29[facility] : 1970 Sex: FMR LUMBAR [...] 1.7 x 1.7 cm. Dorsal paraspinal musculature F2jqalcntvkqsflb. Postcontrast imaging demonstrates mild peripheralenhancement of the [...] Signed By: Ryan Buckley06/13/2023 14:55 CDTWorkstation Name: [id number] KINASE (CK)2023-06-13 11:54:02* Test Item Value Reference Range Interpretation Comme nts CREATINE KINASE TOTAL (BEAKE R) (test code = 380) 43 U/L 29-200 Full Stack Php Developer ID - ADMINCOMPREHENSIVE METABOLIC [id number] 06:48:22* Test Item Value Reference Range Interpretation [...] GFR is not applicable for dialysis patients Full Stack Php Developer ID - ADMINPROTHROMBIN TIME/KKM1588-18-85 06:40:01* Test Item Value Reference Range Interpretation [...] code = 2801) 1.70 % 0.00-1.00 H SSUZBPJGI0753-70-06 05:26:09* Test Item Value Reference Range Interpretation Comme nts MAGNESIUM (BEAKER) (test cod e = 627) 2.0 mg/dL 1.6-2.6 Full Stack Php Developer ID - ROYUMJKPHZUMPHS6835-64-37 05:26:09* Test Item Value Reference Range Interpretation Comme nts PHOSPHORUS (BEAKER) (test co de = 604) 3.5 mg/dL 2.3-4.7 Full Stack Php Developer ID - ADMINBASIC METABOLIC [id number] 05:26:08* Test Item Value Reference Range Interpretation [...] GFR is not applicable for dialysis patients Full Stack Php Developer ID - ADMINCBC W/PLT COUNT & AUTO [id number] 05:11:15* Test Item Value Reference Range Interpretation [...] 0.70 % 0.00-1.00 XR spine lumbar 1 mmel8274-92-23 10:32:20XR SPINE LUMBAR 1 VIEW CLINICAL INDICATION: L3-4 LAMINECTOMY [facility] [id number] 10:32:20 [facility] : 1970 Sex: FXR SPINE LUMBAR 1 VIEWCLINICAL INDICATION: L3-4 LAMINECTOMYCOMPARISON: NoneIMPRESSION:A single lateral view of the lumbar spine is obtained intraoperatively.The posterior approach surgical instrument is seen at the L3-L4 level,inferior to the L3 spinous process. Results were communicated to , who concurred with the above findings. Electronically Signed By: Maxim Ramos08/01/2022 10:34 CDTWo rkstation Name: [id number] SPINE LUMBAR 1 [id number] 10:29:18 [facility] : 1970 Sex: FCLINICAL HISTORY: [...] Signed By: Maxim Ramos08/01/2022 10:31 CDTWorkstation Name: [id number] Screen, iuogn5961-12-48 05:32:52* Test Item Value Reference Range Interpretation Comme nts Preg Test, Ur (test code = 2111-07) Negative Negative Lab Interpretation (test cod e = 72742-3) Normal [facility] CenterPregnancy Screen, nbqft3217-97-96 05:32:52* Test Item Value Reference Range Interpretation Comme nts Preg Test, Ur (test code = 2112-1) Negative Negative Lab Interpretation (test cod e = 24878-6) Normal [facility] CenterPregnancy Screen, ozhlu3063-62-11 05:32:52* Test Item Value Reference Range Interpretation Comme nts Preg Test, Ur (test code = 2-1) Negative Negative Lab Interpretation (test cod e = 67799-4) Normal [facility] CenterPregnancy Screen, [id number] 05:32:52* Test Item Value Reference Range Interpretation Comme nts Preg Test, Ur (test code = 2-1) Negative Negative Lab Interpretation (test cod e = 81634-2) Normal [facility] CenterPregnancy Screen, edrgd6728-14-15 05:32:52* Test Item Value Reference Range Interpretation Comme nts Preg Test, Ur (test code = 2111-) Negative Negative Lab Interpretation (test cod e = 15717-2) Normal [facility] CenterPregnancy Screen, rjugd5930-56-30 05:32:52* Test Item Value Reference Range Interpretation Comme nts Preg Test, Ur (test code = 2111-) Negative Negative Lab Interpretation (test cod e = 40128-3) Normal [facility] CenterPregnancy Screen, [id number] 05:32:52* Test Item Value Reference Range Interpretation Comme nts Preg Test, Ur (test code = 2111-) Negative Negative Lab Interpretation (test cod e = 82463-5) Normal [facility] CenterPregnancy Screen, [id number] 05:32:52* Test Item Value Reference Range Interpretation Comme nts Preg Test, Ur (test code = 2111-1) Negative Negative Lab Interpretation (test cod e = 29381-3) Normal [facility] CenterPregnancy Screen, rzhub8763-77-31 05:32:52* Test Item Value Reference Range Interpretation Comme nts Preg Test, Ur (test code = 2111-1) Negative Negative Lab Interpretation (test cod e = 05285-1) Normal [facility] CenterPregnancy Screen, [id number] 05:32:52* Test Item Value Reference Range Interpretation Comme nts Preg Test, Ur (test code = 2111-1) Negative Negative Lab Interpretation (test cod e = 81423-1) Normal [facility] CenterPregnancy Screen, tfsmp8685-36-30 05:32:52* Test Item Value Reference Range Interpretation Comme nts Preg Test, Ur (test code = 2111-) Negative Negative Lab Interpretation (test cod e = 69881-0) Normal [facility] CenterPregnancy Screen, chkhw4034-07-10 05:32:52* Test Item Value Reference Range Interpretation Comme nts Preg Test, Ur (test code = 2111-) Negative Negative Lab Interpretation (test cod e = 87729-2) Normal [facility] CenterPregnancy Screen, [id number] 05:32:52* Test Item Value Reference Range Interpretation Comme nts Preg Test, Ur (test code = 2111-) Negative Negative Lab Interpretation (test cod e = 78892-1) Normal [facility] CenterPregnancy Screen, [id number] 05:32:52* Test Item Value Reference Range Interpretation Comme nts Preg Test, Ur (test code = 2111-) Negative Negative Lab Interpretation (test cod e = 82856-0) Normal [facility] CenterPregnancy Screen, [id number] 05:32:52* Test Item Value Reference Range Interpretation Comme nts Preg Test, Ur (test code = 2111-) Negative Negative Lab Interpretation (test cod e = 73261-3) Normal [facility] CenterPregnancy Screen, wnqbd1177-59-86 05:32:52* Test Item Value Reference Range Interpretation Comme nts Preg Test, Ur (test code = 2111-) Negative Negative Lab Interpretation (test cod e = 33463-3) Normal [facility] CenterPregnancy Screen, opvhb8724-49-50 05:32:52* Test Item Value Reference Range Interpretation Comme nts Preg Test, Ur (test code = 2111-) Negative Negative Lab Interpretation (test cod e = 92937-3) Normal [facility] CenterPREGNANCY SCREEN, [id number] 05:32:52* Test Item Value Reference Range Interpretation Comme nts TEST URINE (BEAKER ) (test code = 583) Negative Negative BASIC METABOLIC [id number] 23:30:54* Test Item Value Reference Range Interpretation [...] GFR is not applicable for dialysis patients Full Stack Php Developer ID - ADMINPT/[id number] 23:15:33* Test Item Value Reference Range Interpretation [...] H CT neck soft tissue without IV bynwdskz1262-14-53 13:45:22EXAM: CT NECK SOFT TISSUE WITHOUT IV [...] Postoperative changes from anterior cervical discectomy fusionat C3-P5Hsfjpxcj Lung Apices: NormalCH[facility] CenterCT NECK SOFT TISSUE WITHOUT IV [id number] 13:45:22 [facility] : 1970 Sex: FEXAM: CT [...] Postoperative changes from anterior cervical discectomy fusionat C3-H0Nengmbha Lung Apices: NormalIMPRESSION:Exam limited by lack of intravenous contrast.1. 1.8 x 2.9 x 1.3 cm ill-defined fluid collection in the leftanterolateral neck soft tissues, suggesting evolving postoperativehemorrhage. Superimposed infection is not ex cluded.2. Retropharyngeal fluid and air measuring up to 0.8 cm in thickness,favored to be present postoperative right frontal edema. Superimposedinfection is not excluded.3. Postoperative changes from ACDF at C3- B4Rayeunbxgjamug Signed By: Maxim Ramos07/31/2022 13:47 CDTWorkstation Name: [id number] METABOLIC [id number] 08:13:13* Test Item Value Reference Range Interpretation [...] GFR is not applicable for dialysis patients Full Stack Php Developer ID - BVCBC W/PLT COUNT & AUTO UMONBORQWGJI0338-22-20 07:46:31* Test Item Value Reference Range Interpretation [...] 0.00-1.00 XR spine cervical 2 or 3 udtpt7491-51-92 20:24:23TECHNIQUE: Frontal and lateral views of the cervical spine. INDICATION: Postop Standing Films. COMPARISON: None.[facility] CenterXR SPINE CERVICAL 2 OR 3 [id number] 20:24:23[facility] : 1970 Sex: FTECHNIQUE: Frontal [...] Signed By: Zachariah Garcia05/28/2023 20:26 CDTWorkstation Name: [id number] fluoro non-specific up to 1 hour 2023-05-28 11:45:16This is a non-reportable study with no Radiologist dictation. Please refer to your PACS to review images, or Doc Flowsheets for documentation on studies without images.[facility] CenterFL FLUORO NON-SPECIFIC UP TO 1 [id number] 11:45:16 [facility] : 1970 Sex: FThis is a non- reportable study with no Radiologist dictation. Please refer to your PACS to review images, or Doc Flowsheets for documentation on studies without images.FL FLUORO NON-SPECIFIC UP TO 1 [id number] 10:13:02 [facility] : 1970 Sex: FTECHNIQUE: 1 lateral fluoroscopic image of the cervical spine forlocalization.Fluoroscopic time: 3second(s).FINDINGS:The surgical pointer is at C3-C4.The findings were discussed with Dr. Garcia in theOR who concurred withthe findings.IMPRESSION:Intraoperative localization plain film as described abo ve.Electronically Signed By: Derik Reyez05/28/2023 10:15 CDTWorkstation Name: [id number], QUANTITATIVE, [id number] 08:21:03* Test Item Value Reference Range Interpretation Comme nts GONADOTROPIN, CHORIONIC (HCG ) QUANT (BEAKER) (test code = 649) < mIU/mL 0-10 Non- Females: <10 mIU/mL Females: Gestation Age Reference Range(mIU/mL) 0.2-1 Week 5-50 1-2 Weeks 50-500 2-3 Weeks 100-5,000 3-4 Weeks 500-10,000 4-5 Weeks 1,000-50,000 5-6 Weeks 10,000-100,000 6-8 Weeks 15,000- 200,000 2-3 Months 10,000-100,000 Full Stack Php Developer ID - ADMINCULTURE, [id number] 09:28:30SPECIMEN NUMBER: [id number] CULTURE, URINE SPECIMEN NUMBER: [id number] SPECIMEN COMMENT: URINE SOURCE: URINE REPORT STATUS: FINAL FINAL REPORT: 05/15/2023 >100,000 CFU/ML UROGENITAL REBEL PRESENT NOCOMMON PATHOGENS UNLESS OTHERWISE INDICATED, ALL TESTING PERFORMED AT [facility] [address] [place] [address] INSPECTOR BOILER: JANNY STEINER M.D. CLIA NUMBER [id number] [place]. [id number], [id number] 12:02:50SPECIMEN NUMBER: [id number] CULTURE, URINE SPECIMEN NUMBER: [id number] SOURCE: URINE REPORT STATUS: FINAL FINAL REPORT: 05/13/2023 NO SPECIMEN RECEIVED FOR TESTING. CHARGES DELETED.BASIC METABOLIC [id number] 04:48:43* Test Item Value Reference Range Interpretation Comme nts GLUCOSE (test code = 2217) 117 MG/DL 70-99 H BUN (test code = 2208) 20 MG/DL 6-20 CREATININE (test code = 2214) 0.83 MG/DL 0.60-1.30 eGFR (2020 CKD-EPI) (test co de = 85678) 85 ML/MIN/1.73 >60 SODIUM (test code = [...] 12.7 SECONDS 12.5-14.7 INR (test code = 79625) 0.9 SEE BELOW CURRENT RECOMMENDATIONS ARE FOR AN INR OF 2.0-3.0 FOR ALL PATIENTS ON VITAMIN K ANTAGONISTS, EXCEPT THOSE WITH PROSTHETIC HEART VALVES, FOR WHOM INR OF 2.5-3.5 IS RECOMMENDED. UNLESS OTHERWISE INDICATED, ALL TESTING PERFORMED AT [facility] [address] [place] [address] INSPECTOR BOILER: JANNY STEINER M.D. CLIA NUMBER [id number] [place]. [id number] CBC W/AUTO DIFF WITH [id number] 01:54:17* Test Item Value Reference Range Interpretation [...] H ABS NUCLEATED RBCS (test code = 71448) 0.00 K/UL 0.00-0.11 ECG 12 [id number] 14:02:48Ventricular Rate 102 BPMAtrial Rate 102 BPMP-R Interval 146 msQRS Duration 90 msQ-T Interval 372 msQTC Calculation(Dimas) 484 msP [place] 11 degreesR [place] -53 degreesT [place] 29 degrees Sinus tachycardiaPossible Left atrial enlargementLeft axis deviationPoor R wave progression Cannot rule out Anterior infarct , age undetermined vs lead misplacementNonspecific T wave abnormalityProlonged QTAbnormal ECGNo previous ECGs availableConfirmed by David GARCIA BASANT ([id number]) on 04/06/2023 2:02:46 [facility] ServicesECHO W CONTRAST & [id number] 13:11:39Transthoracic Echocardiography Report (TTE) Demographics Patient Name YUE LAWS Date of Study 03/31/2023 [place] Gender Female Visit Number [id number] Race Room Number 2227 Number Date of 1970 Referring Physician Mariah Aldridge MD Age 53 year(s) Concrete Batching Plant Operator Wilmer Francois Student Finance Advisor Josefina Corbett, [facility] Interpreting Physician Melody MDProcedure Type of Study [...] Peak Velocity: 0.74 m/s Peak Gradient: 2.22 mmHgEnloe Medical CenterXR chest 1 view portable / [id number] 15:39:07TECHNIQUE: Frontal view of the chest. INDICATION: CHf. COMPARISON: None. FINDINGS: LINES/TUBES: None. HEART AND MEDIASTINUM: Cardiomediastinal contour is within normallimits. LUNGS: The lungs are well inflated and clear. No consolidation orpulmonary edema. PLEURA: No pneumothorax. No significant pleural effusion. SOFT TISSUES AND BONES: Cervical spinal fixation hardware is noted.Enloe Medical CenterXR CHEST 1 VIEW PORTABLE / [id number] 15:39:07 [facility] 1970 Sex: FTECHNIQUE: Frontal view of the chest.INDICATION: CHf.COMPARISON: None.FINDINGS:LINES/TUBES: None.HE ART AND MEDIASTINUM: Cardiomediastinal contour is within normallimits. LUNGS: The lungs are well inflated and clear. No consolidation orpulmonary edema.PLEURA: No pneumothorax. No significant pleuraleffusion.SOFT TISSUES AND BONES: Cervical spinal fixation hardware is noted.IMPRESSION:No acute card iopulmonary process.Electronically Signed By: Jose Carlos Lebron04/01/2023 15:41 CDTWorkstation Name: [id number] NATRIURETIC FACTOR (BNP)2023-04-01 14:15:07* Test Item Value Reference Range Interpretation Comme nts B-TYPE NATRIURETIC PEPTIDE ( BEAKER) (test code = 700) 192 pg/mL 0-100 H Full Stack Php Developer ID - ADMINMR spine cervical without IV [id number] 11:30:35MRI cervical spine without contrast CLINICAL HISTORY: [...] and paraspinal soft tissues are within normal limits.[facility]loe Medical CenterMR CERVICAL SPINE WITHOUT IV [id number] 11:30:35 [facility] : 1970 Sex: FMRI cervical [...] Signed By: Maxim Sultana03/31/2023 11:32 CDTWorkstation Name: [id number] METABOLIC [id number] 04:43:14* Test Item Value Reference Range Interpretation [...] GFR is not applicable for dialysis patients Full Stack Php Developer GEOVANNA CORREA WCBC (HEMOGRAM ONLY)2023-03-31 04:20:07* Test [...] 0 /100 WBC 0-0 Arterial doppler legs [id number] 17:44:07PV LAB - Lower Extremity Arterial Duplex Demographics Patient Name YUE LAWS Date of Study BROOKLYNN Age 53 Visit Number [id number] Gender Female Accession Number [id number] of 1970 Referring Mariah Aldridge, Room Number 2227 Physician Concrete Batching Plant Operator Yovana Akins Interpreting John Solorio, Physician FellowProcedureType [...] ! !Triphasic ! !144 ! !Triphasic ! +---- + + + + + + + + + !Dist SFA! !106 ! !Triphasic ! !82.1 ! !Triphasic ! + + + + + + + + + + !Prox Popliteal ! !85 ! !Triphasic ! !80.9 ! !Triphasic ! +--- + + + + + + + + + !Dist Popliteal ! !69.5 ! !Triphasic ! !70.4 ! !Triphasic ! + + + + + + + + + + !Prox [place] ! !32 ! !Biphasic ! !60.9 ! !Triphasic ! +- + + + + + + + + + !Mid [place] ! !25.9 ! !Biphasic ! !59.7 ! !Triphasic ! + + + + + + + + + + !Dist [place] ! !33.2 ! !Biphasic ! !37.4 ! !Biphasic ! +------- + + + + + [...] + + + + + + +[facility] CenterABI's Only(Ankle/Brachial Index)2023-03-30 17:13:47PV LAB - Lower Extremity Arterial Procedure Demographics Patient Name YUE LAWS Date of Study 03/30/2023 BR[place]NN Age 53 Visit Number [id number] Gender Female Accession Number [id number] Date of 1970 Referring Mariah Aldridge, Room Number 2227 Physician Concrete Batching Plant Operator Yovana Akins Interpreting John Solorio, Physician FellowProcedureType [...] in cm/s ; Diameters are measured in [facility]MR [facility] spine without IV [id number] 12:50:50MR THORACIC SPINE WITHOUT IV CONTRAST INDICATION: [...] abnormality. T10-11 moderate right neural foraminal stenosis yhzI37-11 moderate bilateral foraminal stenosis due to facet hypertrophyand ligamentum flavum redundancy. Thoracic vertebrae maintain normal height. Mild multilevel degenerativedisc changes. No evidence of acute osseous fracture or traumaticmalalignment. No paraspinal mass. Conus medullaris terminates at L1. Redundant cauda equina partiallyimaged and further reported on MRI lumbar spine.[facility]loe Medical CenterMR THORACIC SPINE WITHOUT IV [id number] 12:50:50 [facility] : 1970 Sex: FMR THORACIC [...] abnormality. T10-11 moderate right neural foraminal stenosis cqsU64-11 moderate bilateral foraminal stenosis due to facet [...] Signed By: Ryan Buckley03/30/2023 12:52 CDTWorkstation Name: [id number] spine lumbar without IV [id number] 12:33:57MR LUMBAR SPINE WITHOUT IV CONTRAST INDICATION: Unlisted Reason for ExamConcern for cord compression COMPARISON: None TECHNIQUE: Multiplanar, multisequence MR images of the lumbar spinewithout contrast. FINDINGS: For the purposes of this dictation, the 5 lowermost dqvfxa-gjmehvmwrrvsm-hegg vertebral bodies are labeled L1-L5.Alignment of the [...] with mild to moderatebilateral neural foraminal stenosisCHI St. Bernardine Medical CenterMR LUMBAR SPINE WITHOUT IV [id number] 12:33:57 [facility] : 1970 Sex: FMR LUMBAR SPINE WITHOUT IV CONTRASTINDICATION: Unlisted Reason for ExamConcern for cord compressionCOMPARISON: NoneTECHNIQUE: Multiplanar, multisequence MR images of the lumbar spinewithout contrast. FINDINGS: For the purposes of this dictation, the 5 lowermost rzbjif-yvhzkrgpouwlw-chxk vertebral bodies are labeled L1- L5.Alignment of the lumbar spine is within normal limits. Vertebral body height is maintained. Bone marrow edema is seen at the inferior L3 and superior L4 vertebralbodies and bilateral L4 pedicles, favored to be degenerative in nature.Suggestion of a synovial cyst at the dyuezL02-N16 level (series 301image eight).No spinal cord signal [...] flavum buckling versus synovial cyst at the ryarsW16-Q20 level (series 301image eight). MRI thoracic spine can beconsidered for further evaluation.7. Mild clumping of the cauda equina nerve roots, which is nonspecificbut may represent arachnoiditis. Postcontrast imaging can be consideredfor further evaluation.Electronically Signed By: Maxim Sultana03/30/2023 12:36 CDTWorkstation Name: [id number] 11:45:01* Test Item Value Reference Range Interpretation Comme nts HEMOGLOBIN A1C ELECTROPHORESIS (LATOYA) (test code = 3811) 5.7 % See_Comment [...] 5.7- 6.4% indicates increased risk for diabetes (prediabetes)."Full Stack Php Developer ID - ADMEEG AWAKE AND [id number] 09:57:53Steph Martinez MD 03/30/2023 9:[address] Type: Inpatient, outpatient, EMUDATE(s) OF EE03/30/23DATE OF REPORT: 03/30/23MRN: [id number] of : 1970EE-1454Start time: 08:36Stop time: :23ICD-10: R56.9 CPT Code: 06888 (awake and asleep)HISTORY: 53 y/o female with [...] EEG recordings. Steph Elias MD, MPHNeurophysiology/Epilepsy AttendingCHI St. [facility] Center EEG AWAKE AND [id number] 09:57:53Gabrielstalin Martinez MD 03/30/2023 9:59 AMELECTROENCEPHALOGRAM FOR [facility] EEG Type: Inpatient, outpatient, EMUDATE(s) OF EE03/30/23DATE OF REPORT: 03/30/23MRN: [id number] of : 1970EE-1454Start time: 08:36Stop time: 09:ICD-10: R56.9 CPT Code: 48156 (awake and asleep)HISTORY: 53 y/o female with [...] EEG recordings. Steph Elias MD, MPHNeurophysiology/Epilepsy AttendingCHI St[facility] EEG AWAKE AND [id number] 09:57:53Steph Martinez MD 03/30/2023 9:59 AMELECTROENCEPHALOGRAM FOR [facility] EEG Type: Inpatient, outpatient, EMUDATE(s) OF EE03/30/23DATE OF REPORT: 03/30/23MRN: [id number] of : 1970EE-1454Start time: 08:36Stop time: 09:23ICD-10: R56.9 CPT Code: 69261 (awake and asleep)HISTORY: 53 y/o female with [...] EEG recordings. Steph Elias MD, MPHNeurophysiology/Epilepsy AttendingCHI St. [facility] Center VALPROIC ACID LEVEL, [id number] 09:42:31* Test Item Value Reference Range Interpretation Comme nts VALPROIC ACID TOTAL (BEAKER) (test code = 924) 76 ug/mL 50-100 Therapeutic range for some clinical conditions may be >100 ug/mLUrinalysis w/Microscopic + Reflex to [id number] 08:43:51* Test Item Value Reference Range Interpretation Comme nts Color, UA (test code = 5778-6) Yellow Clarity, UA (test code = 5767-9) Clear Specific [place], UA (test code = 5811-5) 1.033 1.001-1.035 pH, UA (test code = 5803-2) 6.0 5.0-8.0 Protein, UA (test code = 59615-4) 30 mg/dL Negative A Glucose, UA (test code = 365) Negative Negative Ketones, UA (test code = 2514-8) Negative Negative Bilirubin, UA (test code = 76935-6) Negative Negative Blood, UA (test code = 24536-0) Small Negative A Nitrite, UA (test code = 5802-4) Negative Negative Leukocytes, UA (test code = 5799-2) Negative Negative Urobilinogen, UA (test code = 37165-9) 0.2 0.2-1.0 RBC, UA (test code = 99928-3) 51 See_Comment [Automated message] The system which [...] Occasional Squam Epithel, UA (test code = 09511-8) See_Comment [Automated message] The system which generated this result transmitted reference range: /HPF. The reference range was not used to interpret this result as normal/abnormal. Specimen Source (test code = 2795) LYNDSAY (test code = LYNDSAY) Full Stack Php Developer ID - [auto]Full Stack Php Developer ID - tech Lab Interpretation (test code = 68833-4) Abnormal [facility] CenterUrinalysis w/Microscopic + Reflex to Culture 2023-03-30 08:43:51* Test Item Value Reference Range Interpretation Comme nts Color, UA (test code = 5778-6) Yellow Clarity, UA (test code = 5767-9) Clear Specific [place], UA (test code = 5811-5) 1.033 1.001-1.035 pH, UA (test code = 5803-2) 6.0 5.0-8.0 Protein, UA (test code = 07135-1) 30 mg/dL Negative A Glucose, UA (test code = 365) Negative Negative Ketones, UA (test code = 2514-8) Negative Negative Bilirubin, UA (test code = 07098-2) Negative Negative Blood, UA (test code = 80166-7) Small Negative A Nitrite, UA (test code = 5802-4) Negative Negative Leukocytes, UA (test code = 5799-2) Negative Negative Urobilinogen, UA (test code = 16660-5) 0.2 0.2-1.0 RBC, UA (test code = 67386-1) 51 See_Comment [Automated message] The system which [...] Occasional Squam Epithel, UA (test code = 88877-0) See_Comment [Automated message] The system which generated this result transmitted reference range: /HPF. The reference range was not used to interpret this result as normal/abnormal. Specimen Source (test code = 2795) LYNDSAY (test code = LYNDSAY) Full Stack Php Developer ID - [auto]Full Stack Php Developer ID - tech Lab Interpretation (test code = 72966-7) Abnormal [facility] CenterUrinalysis w/Microscopic + Reflex to Culture 2023-03-30 08:43:51* Test Item Value Reference Range Interpretation Comme nts Color, UA (test code = 5778-6) Yellow Clarity, UA (test code = 5767-9) Clear Specific [place], UA (test code = 5811-5) 1.033 1.001-1.035 pH, UA (test code = 5803-2) 6.0 5.0-8.0 Protein, UA (test code = 73802-6) 30 mg/dL Negative A Glucose, UA (test code = 365) Negative Negative Ketones, UA (test code = 2514-8) Negative Negative Bilirubin, UA (test code = 25105-5) Negative Negative Blood, UA (test code = 68966-5) Small Negative A Nitrite, UA (test code = 5802-4) Negative Negative Leukocytes, UA (test code = 5799-2) Negative Negative Urobilinogen, UA (test code = 39785-6) 0.2 0.2-1.0 RBC, UA (test code = 42703-2) 51 See_Comment [Automated message] The system which [...] Occasional Squam Epithel, UA (test code = 21574-7) See_Comment [Automated message] The system which generated this result transmitted reference range: /HPF. The reference range was not used to interpret this result as normal/abnormal. Specimen Source (test code = 2795) LYNDSAY (test code = LYNDSAY) Full Stack Php Developer ID - [auto]Full Stack Php Developer ID - tech Lab Interpretation (test code = 10680-4) Abnormal [facility] CenterUrinal[facility] w/Microscopic + Reflex to Culture 2023-03-30 08:43:51* Test Item Value Reference Range Interpretation Comme nts Color, UA (test code = 5778-6) Yellow Clarity, UA (test code = 5767-9) Clear Specific [place], UA (test code = 5811-5) 1.033 1.001-1.035 pH, UA (test code = 5803-2) 6.0 5.0-8.0 Protein, UA (test code = 71656-8) 30 mg/dL Negative A Glucose, UA (test code = 365) Negative Negative Ketones, UA (test code = 2514-8) Negative Negative Bilirubin, UA (test code = 46873-3) Negative Negative Blood, UA (test code = 91800-8) Small Negative A Nitrite, UA (test code = 5802-4) Negative Negative Leukocytes, UA (test code = 5799-2) Negative Negative Urobilinogen, UA (test code = 98372-2) 0.2 0.2-1.0 RBC, UA (test code = 85612-1) 51 See_Comment [Automated message] The system which [...] Occasional Squam Epithel, UA (test code = 72401-1) See_Comment [Automated message] The system which generated this result transmitted reference range: /HPF. The reference range was not used to interpret this result as normal/abnormal. Specimen Source (test code = 2795) LYNDSAY (test code = LYNDSAY) Full Stack Php Developer ID - [auto]Full Stack Php Developer ID - tech Lab Interpretation (test code = 52808-0) Abnormal [facility] CenterUr[facility] w/Microscopic + Reflex to Culture 2023-03-30 08:43:51* Test Item Value Reference Range Interpretation Comme nts Color, UA (test code = 5778-6) Yellow Clarity, UA (test code = 5767-9) Clear Specific [place], UA (test code = 5811-5) 1.033 1.001-1.035 pH, UA (test code = 5803-2) 6.0 5.0-8.0 Protein, UA (test code = 24028-0) 30 mg/dL Negative A Glucose, UA (test code = 365) Negative Negative Ketones, UA (test code = 2514-8) Negative Negative Bilirubin, UA (test code = 35891-0) Negative Negative Blood, UA (test code = 66112-6) Small Negative A Nitrite, UA (test code = 5802-4) Negative Negative Leukocytes, UA (test code = 5799-2) Negative Negative Urobilinogen, UA (test code = 68529-2) 0.2 0.2-1.0 RBC, UA (test code = 34942-5) 51 See_Comment [Automated message] The system which [...] Occasional Squam Epithel, UA (test code = 00529-3) See_Comment [Automated message] The system which generated this result transmitted reference range: /HPF. The reference range was not used to interpret this result as normal/abnormal. Specimen Source (test code = 2795) LYNDSAY (test code = LYNDSAY) Full Stack Php Developer ID - [auto]Full Stack Php Developer ID - tech Lab Interpretation (test code = 03753-8) [facility]normal [facility] + Reflex to Culture 2023-03-30 08:43:51* Test Item Value Reference Range Interpretation Comme nts Color, UA (test code = 5778-6) Yellow Clarity, UA (test code = 5767-9) Clear Specific [place], UA (test code = 5811-5) 1.033 1.001-1.035 pH, UA (test code = 5803-2) 6.0 5.0-8.0 Protein, UA (test code = 84774-9) 30 mg/dL Negative A Glucose, UA (test code = 365) Negative Negative Ketones, UA (test code = 2514-8) Negative Negative Bilirubin, UA (test code = 55288-2) Negative Negative Blood, UA (test code = 48109-5) Small Negative A Nitrite, UA (test code = 5802-4) Negative Negative Leukocytes, UA (test code = 5799-2) Negative Negative Urobilinogen, UA (test code = 89885-1) 0.2 0.2-1.0 RBC, UA (test code = 35197-8) 51 See_Comment [Automated message] The system which [...] Occasional Squam Epithel, UA (test code = 87887-9) See_Comment [Automated message] The system which generated this result transmitted reference range: /HPF. The reference range was not used to interpret this result as normal/abnormal. Specimen Source (test code = 2795) LYNDSAY (test code = LYNDSAY) Full Stack Php Developer ID - [auto]Full Stack Php Developer ID - tech Lab Interpretation (test code = 54280-6) [facility]normal [facility] + Reflex to Culture 2023-03-30 08:43:51* Test Item Value Reference Range Interpretation Comme nts Color, UA (test code = 5778-6) Yellow Clarity, UA (test code = 5767-9) Clear Specific [place], UA (test code = 5811-5) 1.033 1.001-1.035 pH, UA (test code = 5803-2) 6.0 5.0-8.0 Protein, UA (test code = 58638-2) 30 mg/dL Negative A Glucose, UA (test code = 365) Negative Negative Ketones, UA (test code = 2514-8) Negative Negative Bilirubin, UA (test code = 22311-8) Negative Negative Blood, UA (test code = 94809-2) Small Negative A Nitrite, UA (test code = 5802-4) Negative Negative Leukocytes, UA (test code = 5799-2) Negative Negative Urobilinogen, UA (test code = 38348-4) 0.2 0.2-1.0 RBC, UA (test code = 11116-1) 51 See_Comment [Automated message] The system which [...] Occasional Squam Epithel, UA (test code = 91442-1) See_Comment [Automated message] The system which generated this result transmitted reference range: /HPF. The reference range was not used to interpret this result as normal/abnormal. Specimen Source (test code = 2795) LYNDSAY (test code = LYNDSAY) Full Stack Php Developer ID - [auto]Full Stack Php Developer ID - tech Lab Interpretation (test code = 12320-3) Abnormal [facility] w/Microscopic + Reflex to Culture 2023-03-30 08:43:51* Test Item Value Reference Range Interpretation Comme nts Color, UA (test code = 5778-6) Yellow Clarity, UA (test code = 5767-9) Clear Specific [place], UA (test code = 5811-5) 1.033 1.001-1.035 pH, UA (test code = 5803-2) 6.0 5.0-8.0 Protein, UA (test code = 89868-6) 30 mg/dL Negative A Glucose, UA (test code = 365) Negative Negative Ketones, UA (test code = 2514-8) Negative Negative Bilirubin, UA (test code = 38486-2) Negative Negative Blood, UA (test code = 47892-7) Small Negative A Nitrite, UA (test code = 5802-4) Negative Negative Leukocytes, UA (test code = 5799-2) Negative Negative Urobilinogen, UA (test code = 79223-3) 0.2 0.2-1.0 RBC, UA (test code = 70539-8) 51 See_Comment [Automated message] The system which [...] Occasional Squam Epithel, UA (test code = 85864-1) See_Comment [Automated message] The system which generated this result transmitted reference range: /HPF. The reference range was not used to interpret this result as normal/abnormal. Specimen Source (test code = 2795) LYNDSAY (test code = LYNDSAY) Full Stack Php Developer ID - [auto]Full Stack Php Developer ID - tech Lab Interpretation (test code = 88896-2) Abnormal [facility] w/Microscopic + Reflex to Culture 2023-03-30 08:43:51* Test Item Value Reference Range Interpretation Comme nts Color, UA (test code = 5778-6) Yellow Clarity, UA (test code = 5767-9) Clear Specific [place], UA (test code = 5811-5) 1.033 1.001-1.035 pH, UA (test code = 5803-2) 6.0 5.0-8.0 Protein, UA (test code = 59495-1) 30 mg/dL Negative A Glucose, UA (test code = 365) Negative Negative Ketones, UA (test code = 2514-8) Negative Negative Bilirubin, UA (test code = 15260-6) Negative Negative Blood, UA (test code = 43938-8) Small Negative A Nitrite, UA (test code = 5802-4) Negative Negative Leukocytes, UA (test code = 5799-2) Negative Negative Urobilinogen, UA (test code = 88142-2) 0.2 0.2-1.0 RBC, UA (test code = 19759-2) 51 See_Comment [Automated message] The system which [...] Occasional Squam Epithel, UA (test code = 71632-4) See_Comment [Automated message] The system which generated this result transmitted reference range: /HPF. The reference range was not used to interpret this result as normal/abnormal. Specimen Source (test code = 2795) LYNDSAY (test code = LYNDSAY) Full Stack Php Developer ID - [auto]Full Stack Php Developer ID - tech Lab Interpretation (test code = 31669-7) Abnormal [facility] w/Microscopic + Reflex to Culture 2023-03-30 08:43:51* Test Item Value Reference Range Interpretation Comme nts Color, UA (test code = 5778-6) Yellow Clarity, UA (test code = 5767-9) Clear Specific [place], UA (test code = 5811-5) 1.033 1.001-1.035 pH, UA (test code = 5803-2) 6.0 5.0-8.0 Protein, UA (test code = 70322-4) 30 mg/dL Negative A Glucose, UA (test code = 365) Negative Negative Ketones, UA (test code = 2514-8) Negative Negative Bilirubin, UA (test code = 07035-9) Negative Negative Blood, UA (test code = 42429-0) Small Negative A Nitrite, UA (test code = 5802-4) Negative Negative Leukocytes, UA (test code = 5799-2) Negative Negative Urobilinogen, UA (test code = 75840-4) 0.2 0.2-1.0 RBC, UA (test code = 00713-1) 51 See_Comment [Automated message] The system which [...] Occasional Squam Epithel, UA (test code = 97110-0) See_Comment [Automated message] The system which generated this result transmitted reference range: /HPF. The reference range was not used to interpret this result as normal/abnormal. Specimen Source (test code = 2795) LYNDSAY (test code = LYNDSAY) Full Stack Php Developer ID - [auto]Full Stack Php Developer ID - tech Lab Interpretation (test code = 56537-1) [facility] [facility]Ur[facility] w/Microscopic + Reflex to Culture 2023-03-30 08:43:51* Test Item Value Reference Range Interpretation Comme nts Color, UA (test code = 5778-6) Yellow Clarity, UA (test code = 5767-9) Clear Specific [place], UA (test code = 5811-5) 1.033 1.001-1.035 pH, UA (test code = 5803-2) 6.0 5.0-8.0 Protein, UA (test code = 23942-5) 30 mg/dL Negative A Glucose, UA (test code = 365) Negative Negative Ketones, UA (test code = 2514-8) Negative Negative Bilirubin, UA (test code = 45609-0) Negative Negative Blood, UA (test code = 49378-7) Small Negative A Nitrite, UA (test code = 5802-4) Negative Negative Leukocytes, UA (test code = 5799-2) Negative Negative Urobilinogen, UA (test code = 73432-5) 0.2 0.2-1.0 RBC, UA (test code = 18839-7) 51 See_Comment [Automated message] The system which [...] Occasional Squam Epithel, UA (test code = 71860-3) See_Comment [Automated message] The system which generated this result transmitted reference range: /HPF. The reference range was not used to interpret this result as normal/abnormal. Specimen Source (test code = 2795) LYNDSAY (test code = LYNDSAY) [employer] Stack Php Developer ID - [auto]Full Stack Php Developer ID - tech Lab Interpretation (test code = 56955-1) [facility]normal [facility] 2023-03-30 08:43:51* Test Item Value Reference Range Interpretation Comme nts Color, UA (test code = 5778-6) Yellow Clarity, UA (test code = 5767-9) Clear Specific [place], UA (test code = 5811-5) 1.033 1.001-1.035 pH, UA (test code = 5803-2) 6.0 5.0-8.0 Protein, UA (test code = 59558-4) 30 mg/dL Negative A Glucose, UA (test code = 365) Negative Negative Ketones, UA (test code = 2514-8) Negative Negative Bilirubin, UA (test code = 24556-5) Negative Negative Blood, UA (test code = 80897-5) Small Negative A Nitrite, UA (test code = 5802-4) Negative Negative Leukocytes, UA (test code = 5799-2) Negative Negative Urobilinogen, UA (test code = 57709-3) 0.2 0.2-1.0 RBC, UA (test code = 03332-7) 51 See_Comment [Automated message] The system which [...] Occasional Squam Epithel, UA (test code = 11856-1) See_Comment [Automated message] The system which generated this result transmitted reference range: /HPF. The reference range was not used to interpret this result as normal/abnormal. Specimen Source (test code = 2795) LYNDSAY (test code = LYNDSAY) Full Stack Php Developer ID - [auto]Full Stack Php Developer ID - tech Lab Interpretation (test code = 22237-9) [facility] 2023-[facility]-30 08:43:51* Test Item Value Reference Range Interpretation Comme nts Color, UA (test code = 5778-6) Yellow Clarity, UA (test code = 5767-9) Clear Specific [place], UA (test code = 5811-5) 1.033 1.001-1.035 pH, UA (test code = 5803-2) 6.0 5.0-8.0 Protein, UA (test code = 02401-2) 30 mg/dL Negative A Glucose, UA (test code = 365) Negative Negative Ketones, UA (test code = 2514-8) Negative Negative Bilirubin, UA (test code = 28075-9) Negative Negative Blood, UA (test code = 10996-5) Small Negative A Nitrite, UA (test code = 5802-4) Negative Negative Leukocytes, UA (test code = 5799-2) Negative Negative Urobilinogen, UA (test code = 69201-1) 0.2 0.2-1.0 RBC, UA (test code = 34136-3) 51 See_Comment [Automated message] The system which [...] Occasional Squam Epithel, UA (test code = 56461-8) See_Comment [Automated message] The system which generated this result transmitted reference range: /HPF. The reference range was not used to interpret this result as normal/abnormal. Specimen Source (test code = 2795) LYNDSAY (test code = LYNDSAY) Full Stack Php Developer ID - [auto]Full Stack Php Developer ID - tech Lab Interpretation (test code = 58635-0) [facility] 2023-03-30 08:43:51* Test Item Value Reference Range Interpretation Comme nts Color, UA (test code = 5778-6) Yellow Clarity, UA (test code = 5767-9) Clear Specific [place], UA (test code = 5811-5) 1.033 1.001-1.035 pH, UA (test code = 5803-2) 6.0 5.0-8.0 Protein, UA (test code = 70462-1) 30 mg/dL Negative A Glucose, UA (test code = 365) Negative Negative Ketones, UA (test code = 2514-8) Negative Negative Bilirubin, UA (test code = 85650-5) Negative Negative Blood, UA (test code = 03536-6) Small Negative A Nitrite, UA (test code = 5802-4) Negative Negative Leukocytes, UA (test code = 5799-2) Negative Negative Urobilinogen, UA (test code = 20496-0) 0.2 0.2-1.0 RBC, UA (test code = 49680-4) 51 See_Comment [Automated message] The system which [...] Occasional Squam Epithel, UA (test code = 28021-4) See_Comment [Automated message] The system which generated this result transmitted reference range: /HPF. The reference range was not used to interpret this result as normal/abnormal. Specimen Source (test code = 2795) LYNDSAY (test code = LYNDSAY) Full Stack Php Developer ID - [auto]Full Stack Php Developer ID - tech Lab Interpretation (test code = 16865-9) [facility] Culture 2023-03-30 08:43:51* Test Item Value Reference Range Interpretation Comme nts Color, UA (test code = 5778-6) Yellow Clarity, UA (test code = 5767-9) Clear Specific [place], UA (test code = 5811-5) 1.033 1.001-1.035 pH, UA (test code = 5803-2) 6.0 5.0-8.0 Protein, UA (test code = 13593-6) 30 mg/dL Negative A Glucose, UA (test code = 365) Negative Negative Ketones, UA (test code = 2514-8) Negative Negative Bilirubin, UA (test code = 80829-1) Negative Negative Blood, UA (test code = 24526-5) Small Negative A Nitrite, UA (test code = 5802-4) Negative Negative Leukocytes, UA (test code = 5799-2) Negative Negative Urobilinogen, UA (test code = 95487-3) 0.2 0.2-1.0 RBC, UA (test code = 64393-3) 51 See_Comment [Automated message] The system which [...] Occasional Squam Epithel, UA (test code = 98670-5) See_Comment [Automated message] The system which generated this result transmitted reference range: /HPF. The reference range was not used to interpret this result as normal/abnormal. Specimen Source (test code = 2795) LYNDSAY (test code = LYNDSAY) Full Stack Php Developer ID - [auto]Full Stack Php Developer ID - tech Lab Interpretation (test code = 33567-1) [facility] Reflex [facility] Culture 2023-03-30 08:43:51* Test Item Value Reference Range Interpretation Comme nts Color, UA (test code = 5778-6) Yellow Clarity, UA (test code = 5767-9) Clear Specific [place], UA (test code = 5811-5) 1.033 1.001-1.035 pH, UA (test code = 5803-2) 6.0 5.0-8.0 Protein, UA (test code = 66138-7) 30 mg/dL Negative A Glucose, UA (test code = 365) Negative Negative Ketones, UA (test code = 2514-8) Negative Negative Bilirubin, UA (test code = 30707-4) Negative Negative Blood, UA (test code = 96128-5) Small Negative A Nitrite, UA (test code = 5802-4) Negative Negative Leukocytes, UA (test code = 5799-2) Negative Negative Urobilinogen, UA (test code = 71974-6) 0.2 0.2-1.0 RBC, UA (test code = 29548-7) 51 See_Comment [Automated message] The system which [...] Occasional Squam Epithel, UA (test code = 96185-2) See_Comment [Automated message] The system which generated this result transmitted reference range: /HPF. The reference range was not used to interpret this result as normal/abnormal. Specimen Source (test code = 2795) LYNDSAY (test code = LYNDSAY) Full Stack Php Developer ID - [auto]Full Stack Php Developer ID - tech Lab Interpretation (test code = 35398-4) [facility] Reflex [facility] Culture 2023-03-30 08:43:51* Test Item Value Reference Range Interpretation Comme nts Color, UA (test code = 5778-6) Yellow Clarity, UA (test code = 5767-9) Clear Specific [place], UA (test code = 5811-5) 1.033 1.001-1.035 pH, UA (test code = 5803-2) 6.0 5.0-8.0 Protein, UA (test code = 32580-8) 30 mg/dL Negative A Glucose, UA (test code = 365) Negative Negative Ketones, UA (test code = 2514-8) Negative Negative Bilirubin, UA (test code = 15816-8) Negative Negative Blood, UA (test code = 11785-2) Small Negative A Nitrite, UA (test code = 5802-4) Negative Negative Leukocytes, UA (test code = 5799-2) Negative Negative Urobilinogen, UA (test code = 65835-1) 0.2 0.2-1.0 RBC, UA (test code = 62336-0) 51 See_Comment [Automated message] The system which [...] Occasional Squam Epithel, UA (test code = 35530-2) See_Comment [Automated message] The system which generated this result transmitted reference range: /HPF. The reference range was not used to interpret this result as normal/abnormal. Specimen Source (test code = 2795) LYNDSAY (test code = LYNDSAY) Full Stack Php Developer ID - [auto]Full Stack Php Developer ID - tech Lab Interpretation (test code = 99132-2) [facility]normal [facility] Reflex [facility] Culture 2023-03-30 08:43:51* Test Item Value Reference Range Interpretation Comme nts Color, UA (test code = 5778-6) Yellow Clarity, UA (test code = 5767-9) Clear Specific [place], UA (test code = 5811-5) 1.033 1.001-1.035 pH, UA (test code = 5803-2) 6.0 5.0-8.0 Protein, UA (test code = 75187-7) 30 mg/dL Negative A Glucose, UA (test code = 365) Negative Negative Ketones, UA (test code = 2514-8) Negative Negative Bilirubin, UA (test code = 30696-8) Negative Negative Blood, UA (test code = 90747-2) Small Negative A Nitrite, UA (test code = 5802-4) Negative Negative Leukocytes, UA (test code = 5799-2) Negative Negative Urobilinogen, UA (test code = 11086-3) 0.2 0.2-1.0 RBC, UA (test code = 20631-4) 51 See_Comment [Automated message] The system which [...] Occasional Squam Epithel, UA (test code = 11484-5) See_Comment [Automated message] The system which generated this result transmitted reference range: /HPF. The reference range was not used to interpret this result as normal/abnormal. Specimen Source (test code = 2795) LYNDSAY (test code = LYNDSAY) Full Stack Php Developer ID - [auto]Full Stack Php Developer ID - tech Lab Interpretation (test code = 11187-1) [facility]normal [facility] Reflex [facility] Culture 2023-03-30 08:43:51* Test Item Value Reference Range Interpretation Comme nts Color, UA (test code = 5778-6) Yellow Clarity, UA (test code = 5767-9) Clear Specific [place], UA (test code = 5811-5) 1.033 1.001-1.035 pH, UA (test code = 5803-2) 6.0 5.0-8.0 Protein, UA (test code = 90228-0) 30 mg/dL Negative A Glucose, UA (test code = 365) Negative Negative Ketones, UA (test code = 2514-8) Negative Negative Bilirubin, UA (test code = 57874-4) Negative Negative Blood, UA (test code = 43690-5) Small Negative A Nitrite, UA (test code = 5802-4) Negative Negative Leukocytes, UA (test code = 5799-2) Negative Negative Urobilinogen, UA (test code = 68922-1) 0.2 0.2-1.0 RBC, UA (test code = 49367-1) 51 See_Comment [Automated message] The system which [...] Occasional Squam Epithel, UA (test code = 12914-2) See_Comment [Automated message] The system which generated this result transmitted reference range: /HPF. The reference range was not used to interpret this result as normal/abnormal. Specimen Source (test code = 2795) LYNDSAY (test code = LYNDSAY) Full Stack Php Developer ID - [auto]Full Stack Php Developer ID - tech Lab Interpretation (test code = 13412-0) [facility] Reflex [facility] Culture 2023-03-30 08:43:51* Test Item Value Reference Range Interpretation Comme nts Color, UA (test code = 5778-6) Yellow Clarity, UA (test code = 5767-9) Clear Specific [place], UA (test code = 5811-5) 1.033 1.001-1.035 pH, UA (test code = 5803-2) 6.0 5.0-8.0 Protein, UA (test code = 43459-6) 30 mg/dL Negative A Glucose, UA (test code = 365) Negative Negative Ketones, UA (test code = 2514-8) Negative Negative Bilirubin, UA (test code = 36907-3) Negative Negative Blood, UA (test code = 54375-7) Small Negative A Nitrite, UA (test code = 5802-4) Negative Negative Leukocytes, UA (test code = 5799-2) Negative Negative Urobilinogen, UA (test code = 15692-2) 0.2 0.2-1.0 RBC, UA (test code = 04908-5) 51 See_Comment [Automated message] The system which [...] Occasional Squam Epithel, UA (test code = 90997-5) See_Comment [Automated message] The system which generated this result transmitted reference range: /HPF. The reference range was not used to interpret this result as normal/abnormal. Specimen Source (test code = 2795) LYNDSAY (test code = LYNDSAY) Full Stack Php Developer ID - [auto]Full Stack Php Developer ID - tech Lab Interpretation (test code = 20514-2) [facility] Reflex [facility] Culture 2023-03-30 08:43:51* Test Item Value Reference Range Interpretation Comme nts Color, UA (test code = 5778-6) Yellow Clarity, UA (test code = 5767-9) Clear Specific [place], UA (test code = 5811-5) 1.033 1.001-1.035 pH, UA (test code = 5803-2) 6.0 5.0-8.0 Protein, UA (test code = 19616-6) 30 mg/dL Negative A Glucose, UA (test code = 365) Negative Negative Ketones, UA (test code = 2514-8) Negative Negative Bilirubin, UA (test code = 69626-3) Negative Negative Blood, UA (test code = 72094-4) Small Negative A Nitrite, UA (test code = 5802-4) Negative Negative Leukocytes, UA (test code = 5799-2) Negative Negative Urobilinogen, UA (test code = 68484-9) 0.2 0.2-1.0 RBC, UA (test code = 90867-4) 51 See_Comment [Automated message] The system which [...] Occasional Squam Epithel, UA (test code = 30679-1) See_Comment [Automated message] The system which generated this result transmitted reference range: /HPF. The reference range was not used to interpret this result as normal/abnormal. Specimen Source (test code = 2795) LYNDSAY (test code = LYNDSAY) Full Stack Php Developer ID - [auto]Full Stack Php Developer ID - tech Lab Interpretation (test code = 58180-4) [facility] Reflex [facility] Culture 2023-03-30 08:43:51* Test Item Value Reference Range Interpretation Comme nts Color, UA (test code = 5778-6) Yellow Clarity, UA (test code = 5767-9) Clear Specific [place], UA (test code = 5811-5) 1.033 1.001-1.035 pH, UA (test code = 5803-2) 6.0 5.0-8.0 Protein, UA (test code = 77885-7) 30 mg/dL Negative A Glucose, UA (test code = 365) Negative Negative Ketones, UA (test code = 2514-8) Negative Negative Bilirubin, UA (test code = 49710-7) Negative Negative Blood, UA (test code = 90371-1) Small Negative A Nitrite, UA (test code = 5802-4) Negative Negative Leukocytes, UA (test code = 5799-2) Negative Negative Urobilinogen, UA (test code = 91983-0) 0.2 0.2-1.0 RBC, UA (test code = 84427-2) 51 See_Comment [Automated message] The system which [...] Occasional Squam Epithel, UA (test code = 79615-0) See_Comment [Automated message] The system which generated this result transmitted reference range: /HPF. The reference range was not used to interpret this result as normal/abnormal. Specimen Source (test code = 2795) LYNDSAY (test code = LYNDSAY) Full Stack Php Developer ID - [auto]Full Stack Php Developer ID - tech Lab Interpretation (test code = 07173-8) [facility]normal [facility] Reflex [facility] Culture 2023-03-30 08:43:51* Test Item Value Reference Range Interpretation Comme nts Color, UA (test code = 5778-6) Yellow Clarity, UA (test code = 5767-9) Clear Specific [place], UA (test code = 5811-5) 1.033 1.001-1.035 pH, UA (test code = 5803-2) 6.0 5.0-8.0 Protein, UA (test code = 66290-3) 30 mg/dL Negative A Glucose, UA (test code = 365) Negative Negative Ketones, UA (test code = 2514-8) Negative Negative Bilirubin, UA (test code = 05722-4) Negative Negative Blood, UA (test code = 03769-6) Small Negative A Nitrite, UA (test code = 5802-4) Negative Negative Leukocytes, UA (test code = 5799-2) Negative Negative Urobilinogen, UA (test code = 97097-3) 0.2 0.2-1.0 RBC, UA (test code = 58660-0) 51 See_Comment [Automated message] The system which [...] Occasional Squam Epithel, UA (test code = 94826-9) See_Comment [Automated message] The system which generated this result transmitted reference range: /HPF. The reference range was not used to interpret this result as normal/abnormal. Specimen Source (test code = 2795) LYNDSAY (test code = LYNDSAY) Full Stack Php Developer ID - [auto]Full Stack Php Developer ID - tech Lab Interpretation (test code = 71000-3) [facility]normal [facility] Reflex to Culture 2023-03-30 08:43:51* Test Item Value Reference Range Interpretation Comme nts Color, UA (test code = 5778-6) Yellow Clarity, UA (test code = 5767-9) Clear Specific [place], UA (test code = 5811-5) 1.033 1.001-1.035 pH, UA (test code = 5803-2) 6.0 5.0-8.0 Protein, UA (test code = 57803-4) 30 mg/dL Negative A Glucose, UA (test code = 365) Negative Negative Ketones, UA (test code = 2514-8) Negative Negative Bilirubin, UA (test code = 89368-6) Negative Negative Blood, UA (test code = 75759-5) Small Negative A Nitrite, UA (test code = 5802-4) Negative Negative Leukocytes, UA (test code = 5799-2) Negative Negative Urobilinogen, UA (test code = 99873-5) 0.2 0.2-1.0 RBC, UA (test code = 36310-4) 51 See_Comment [Automated message] The system which [...] Occasional Squam Epithel, UA (test code = 80950-7) See_Comment [Automated message] The system which generated this result transmitted reference range: /HPF. The reference range was not used to interpret this result as normal/abnormal. Specimen Source (test code = 2795) LYNDSAY (test code = LYNDSAY) Full Stack Php Developer ID - [auto]Full Stack Php Developer ID - tech Lab Interpretation (test code = 66854-4) [facility] Reflex [facility] Culture 2023-03-30 08:43:51* Test Item Value Reference Range Interpretation Comme nts Color, UA (test code = 5778-6) Yellow Clarity, UA (test code = 5767-9) Clear Specific [place], UA (test code = 5811-5) 1.033 1.001-1.035 pH, UA (test code = 5803-2) 6.0 5.0-8.0 Protein, UA (test code = 06687-3) 30 mg/dL Negative A Glucose, UA (test code = 365) Negative Negative Ketones, UA (test code = 2514-8) Negative Negative Bilirubin, UA (test code = 28082-6) Negative Negative Blood, UA (test code = 18263-0) Small Negative A Nitrite, UA (test code = 5802-4) Negative Negative Leukocytes, UA (test code = 5799-2) Negative Negative Urobilinogen, UA (test code = 87357-8) 0.2 0.2-1.0 RBC, UA (test code = 63328-5) 51 See_Comment [Automated message] The system which [...] Occasional Squam Epithel, UA (test code = 64868-1) See_Comment [Automated message] The system which generated this result transmitted reference range: /HPF. The reference range was not used to interpret this result as normal/abnormal. Specimen Source (test code = 2795) LYNDSAY (test code = LYNDSAY) Full Stack Php Developer ID - [auto]Full Stack Php Developer ID - tech Lab Interpretation (test code = 74276-4) [facility]normal [facility] Reflex to Culture 2023-03-30 08:43:51* Test Item Value Reference Range Interpretation Comme nts Color, UA (test code = 5778-6) Yellow Clarity, UA (test code = 5767-9) Clear Specific [place], UA (test code = 5811-5) 1.033 1.001-1.035 pH, UA (test code = 5803-2) 6.0 5.0-8.0 Protein, UA (test code = 54182-0) 30 mg/dL Negative A Glucose, UA (test code = 365) Negative Negative Ketones, UA (test code = 2514-8) Negative Negative Bilirubin, UA (test code = 71280-7) Negative Negative Blood, UA (test code = 75412-0) Small Negative A Nitrite, UA (test code = 5802-4) Negative Negative Leukocytes, UA (test code = 5799-2) Negative Negative Urobilinogen, UA (test code = 01216-3) 0.2 0.2-1.0 RBC, UA (test code = 89740-6) 51 See_Comment [Automated message] The system which [...] Occasional Squam Epithel, UA (test code = 27006-5) See_Comment [Automated message] The system which generated this result transmitted reference range: /HPF. The reference range was not used to interpret this result as normal/abnormal. Specimen Source (test code = 2795) LYNDSAY (test code = LYNDSAY) Full Stack Php Developer ID - [auto]Full Stack Php Developer ID - tech Lab Interpretation (test code = 15231-0) [facility] Reflex [facility] Culture 2023-03-30 08:43:51* Test Item Value Reference Range Interpretation Comme nts Color, UA (test code = 5778-6) Yellow Clarity, UA (test code = 5767-9) Clear Specific [place], UA (test code = 5811-5) 1.033 1.001-1.035 pH, UA (test code = 5803-2) 6.0 5.0-8.0 Protein, UA (test code = 25555-5) 30 mg/dL Negative A Glucose, UA (test code = 365) Negative Negative Ketones, UA (test code = 2514-8) Negative Negative Bilirubin, UA (test code = 37938-7) Negative Negative Blood, UA (test code = 49749-3) Small Negative A Nitrite, UA (test code = 5802-4) Negative Negative Leukocytes, UA (test code = 5799-2) Negative Negative Urobilinogen, UA (test code = 48512-2) 0.2 0.2-1.0 RBC, UA (test code = 76203-5) 51 See_Comment [Automated message] The system which [...] Occasional Squam Epithel, UA (test code = 90629-0) See_Comment [Automated message] The system which generated this result transmitted reference range: /HPF. The reference range was not used to interpret this result as normal/abnormal. Specimen Source (test code = 2795) LYNDSAY (test code = LYNDSAY) Full Stack [employer]p Developer ID - [auto]Full Stack Php Developer ID - tech Lab Interpretation (test code = 41199-4) [facility]normal [facility] URINE [id number] 08:43:51 * Test Item Value Reference Range [...] < /HPF SOURCE(BEAKER) (test code = 2795) Full Stack Php Developer ID - [auto]Full Stack Php Developer ID - techCOMPREHENSIVE METABOLIC [id number] 04:37:29* Test Item Value Reference Range Interpretation [...] GFR is not applicable for dialysis patients Full Stack [employer]p Developer ID - MATT BPT/[id number] 04:30:17* Test Item Value Reference Range Interpretation Comme nts PROTIME (BEAKER) (test code = 759) 13.8 seconds 11.9-14.2 INR (BEAKER) (test code = 370) 1.13 See_Comment [Automated [employer]] The system which generated this result transmitted [...] code = 413) 0 /100 WBC 0-0 [id number]-[id number] 00:00:00Ordered by an unspecified provider.[facility]-QLUEWKT0501-18-45 00:00:00Ordered by an unspecified provider. [facility]EKG-MGUFPJK2481-26-72 00:00:00Ordered by an unspecified provider.[facility] CenterMAGNESIUM2023-05-25 17:14:06* Test Item Value Reference Range Interpretation Comme nts MAGNESIUM (test code = 6020251578) 1.9 mg/dL 1.7-2.4 Lab Interpretation (test cod e = 91608-6) [facility]11 15:16:25* Test Item Value Reference Range Interpretation Comme nts NA (test code = 9296848211) 139 mmol/L 135-145 K (test code = 1192286260) 3.5 mmol/L 3.5-5.0 CL (test code = 6701258776) 107 mmol/L 98-108 CO2 TOTAL (test code = 3002301027) 24 mmol/L 23-31 AGAP (test code = 1442487934) 8 2-16 BUN (test code = 5584467920) 9 mg/dL 7-23 GLUCOSE (test code = 1206000487) 129 mg/dL 70-110 H CREATININE (test code = 9014405065) 0.68 mg/dL 0.50-1.04 TOTAL BILI (test code = 2009195995) 0.5 mg/dL 0.1-1.1 CALCIUM (test code = 8549519776) 8.9 mg/dL 8.6-10.6 T PROTEIN (test code = 2462633849) 6.3 g/dL 6.3-8.2 ALBUMIN (test code = 1786985210) 3.8 g/dL 3.5-5.0 ALK PHOS (test code = 9724074901) 87 U/L 34-122 ALTv (test code = 1742-6) 24 U/L 5-35 AST(SGOT) (test code = 5196645043) 21 U/L 13-40 eGFR (test code = 9546136463) 91.6 mL/min/1.73m2 LYNDSAY (test code = LYNDSAY) [...] imaging tests). Lab Interpretation (test code = 74109-3) [facility] [id number] 15:10:45* Test Item Value Reference Range Interpretation Comme nts TROPONIN I (test code = 2696297073) 0.015 ng/mL <=0.034 LYNDSAY (test code = [...] of biotin. Lab Interpretation (test code = 74796-8) Normal [facility] [id number] 15:07:48* Test Item Value Reference Range Interpretation Comme nts NT-proBNP (test code = 5239416624) 1460 pg/mL <=125 H LYNDSAY (test code = LYNDSAY) Biotin has been reported to cause a negative bias, interpret results relative to patient's use of biotin. Lab Interpretation (test code = 71620-0) Abnormal [place] [id number] 14:45:24* Test Item Value Reference Range Interpretation Comments D-DIMER (test code = 0927362261) 0.99 See_Comment H [Automated message] The system [...] a diagnosis. Lab Interpretation (test code = 14673-8) Abnormal [facility] WITH [id number] 14:14:48* Test Item Value Reference Range Interpretation Comme nts WBC (test code = 6690-2) 7.86 See_Comment [Automated [employer]] The system which generated this result transmitted reference range: 4.30 - 11.10 10*3/?L. The reference range was not used to interpret this result as normal/abnormal. RBC (test code = 789-8) 5.13 See_Comment [Automated [employer]] The system which generated this result transmitted [...] g/dL 31.6-35.1 L RDW-SD (test code = 15631-5) 47.8 fL 39.0-49.9 RDW-CV (test code = 788-0) 16.9 % 12.0-15.5 H PLT (test code = 777-3) 507 See_Comment H [Automated messa ge] The system which generated this result transmitted reference range: 166 - 358 10*3/?L. The reference range was not used to interpret this result as normal/abnormal. MPV (test code = 61857-2) 8.2 fL 9.5-12.9 L NRBC/100 WBC (test code = 9108445162) 0.0 See_Comment [Automated me ssage] The system which generated this result transmitted reference range: 0.0 - 10.0 /100 WBCs. The reference range was not used to interpret this result as normal/abnormal. NRBC x10^3 (test code = 1706806879) See_Comment [Automated messa ge] The system which generated this result transmitted reference range: 10*3/?L. The reference range was not used to interpret this result as normal/abnormal. GRAN MAT (NEUT) % (test code = 770-8) 64.5 % IMM GRAN % (test code = 1879155299) 0.30 % LYMPH % (test code = 736-9) 25.6 % MONO % (test code = 5905-5) 7.5 % EOS % (test code = 713-8) 1.0 % BASO % (test code = 706-2) 1.1 % GRAN MAT x10^3(ANC) (test code = 2459671193) 5.07 10*3/uL 1.88-7.09 IMM GRAN x10^3 (test code = 3316164108) 0.00-0.06 LYMPH x10^3 (test code = 731-0) 2.01 10*3/uL 1.32-3.29 MONO x10^3 (test code = 742-7) 0.59 10*3/uL 0.33-0.92 EOS x10^3 (test code = 711-2) 0.08 10*3/uL 0.03-0.39 BASO x10^3 (test code = 704-7) 0.09 10*3/uL 0.01-0.07 H Lab Interpretation (test code = 19491-0) [facility] 13:17:22* Test Item Value Reference Range Interpretation Comme nts RPR SCREEN (BEAKER) (test co de = 420) Nonreactive Nonreactive HEMOGLOBIN [id number] 10:39:49* Test Item Value Reference Range Interpretation Comme nts HEMOGLOBIN A1C ELECTROPHORESIS (LATOYA) (test code = 3811) 5.8 % See_Comment H [Automated me ssage] The system which generated this result transmitted reference range: <=5.6%. The reference range was not used to interpret this result as normal/abnormal. "The A1c is measured using a [facility]-certified method. HbA1c value equal to or greater than 6.5% as the diagnosis cutoff for diabetes. An HbA1c value of 5.7- 6.4% indicates increased risk for diabetes (prediabetes)."Full Stack Php Developer ID - ADM VITAMIN [id number] 22:48:27* Test Item Value Reference Range Interpretation Comme nts VITAMIN B12 (LATOYA) (test c ode = 774) 227 pg/mL 213-816 Full Stack Php Developer ID - MARCOTSH/FREE T4 IF [id number] 22:08:28* Test Item Value Reference Range Interpretation Comme nts THYROID STIMULATING HORMONE (LATOYA) (test code = 772) 3.309 uIU/mL 0.350-4.940 Full Stack Php Developer ID - JSHIV-1 ANTIGEN WITH HIV-1/2 [id number] 22:08:28* Test Item Value Reference Range Interpretation Comme nts HIV-1 ANTIGEN WITH HIV 1\\T\\2 ANTIBODY (2) (LATOYA) (test code = 2586) Nonreactive Nonreactive [employer] Stack [employer] Developer ID - JSC-REACTIVE [id number] 21:49:44* Test Item Value Reference Range Interpretation Comme nts C-REACTIVE PROTEIN (LINNEAAKER) (test code = 676) 0.35 mg/dL 0.00-0.50 Full Stack Php Developer ID - JSCOMPREHENSIVE METABOLIC [id number] 21:49:43* Test Item Value Reference Range Interpretation [...] GFR is not applicable for dialysis patients Full Stack Php Developer ID - JSLIPID [id number] 21:49:43* Test Item Value Reference Range Interpretation [...] Borderline 130-159 High 160-189 Very High >=190 Full Stack Php Developer ID - JSCBC W/PLT COUNT & AUTO [id number] 21:34:03* Test Item Value Reference Range Interpretation [...] Interpretation Comme nts Height (test code = 8588498039) in Weight (test code = 9282762714) lbs Systolic BP (test code = 2215359938) mmHg Diastolic BP (test code = 6678946546) mmHg Heart Rate (test code = 4395385953) bpm BSA (test code = 4904860595) 2.00 m2 Ao root diam (test code = 7613462113) 3.20 cm Aortic root (test code = 8761262868) 3.2 cm Ao root annulus (test code = 1810652874) 3.2 cm LVOT diameter (test code = 2063979382) 1.99 cm LVOT area (test code = 5680472680) 3.10 cm2 LVIDD (test code = 6197107179) 5.10 cm Left Ventricular End Diastolic Volume by Teichholz Method (test code = 0420161) 123.0 mL IVS (test code = 3227394759) 1.34 cm Interventricular Septum Diastolic Thickness by 2D (test code = 0786785) 1.34 cm LVPWD (test code = 5541729491) 1.34 cm PW (test code = 0604662183) 1.34 cm 0.6-1.1 EF(Teich) (test code = 9232450167) 41.80 % LVIDS (test code = 4451780521) 4.00 cm Left Ventricular End Systolic Volume by Teichholz Method (test code = 9566591) 71.5 mL FS (test code = 7557744762) 21 % EF - 2D (test code = 09213759) 41.80 % LA size (test code = 6079389160) 4.6 cm Pulmonic Regurgitant End Max Velocity (test code = 3349495104) 119.4 cm/s LAV(MOD-sp4) (test code = 9564583708) 95.00 mL E wave decelartion time (test code = 9102165490) 0.15 s MV stenosis pressure 1/2 time (test code = 0123365255) 45.6 ms MV Peak A Evette (test code = 0216952081) 123.8 cm/s MV Peak E Evette (test code = 5317482601) 109.7 cm/s E/A ratio (test code = 7052945985) ratio MR max PG (test code = 4148096341) 87.20 mm[Hg] MR max evette (test code = 9922924225) 466.90 cm/s Mr max evette (test code = 3284387375) 466.9 m/s MV Prop V (test code = 7088604605) 51.00 cm/s MV E/e' septal (test code = 8544245330) 8.1 cm/s Tapse (test code = 3713581240) 2.21 cm LVOT stroke volume (test code = 6569391900) 49.80 cm3 LVOT peak evette (test code = 7743677637) 89.1 cm/s LVOT mn grad (test code = 8824521883) mmHg AV LVOT peak gradient (test code = 1758014983) mmHg LVOT peak VTI (test code = 8626543388) 16.0 cm LV V1 mean (test code = 0951543567) 64.30 cm/s Aortic valve mean velocity (test code = 6701450705) 133.8 cm/s Ao peak evette (test code = 6519018062) 175.3 cm/s Ao VTI (test code = 9030278236) 32.2 cm AV area by cont VTI (test code = 5391747567) 1.6 cm2 AV area peak evette (test code = 9198612769) 1.6 cm2 Ao max PG (test code = 1022584273) 12.30 mm[Hg] AV peak gradient (test code = 6364936893) mmHg AV valve area (test code = 4911922963) 1.55 cm2 AV mean gradient (test code = 2135852194) mmHg AV regurgitation pressure 1/2 time (test code = 8222737907) 358.5 ms AI dec slope (test code = 8595867663) 364.20 cm/s2 AI max evette (test code = 7899713131) 445.80 cm/s AI max PG (test code = 1379858279) 79.50 mm[Hg] Radiology Study observation (narrative) (test code = 45914-0) LYNDSAY (test code = LYNDSAY) ?Left?Ventricle: Left [...] mL of Lumason ultrasound enhancing agent used. [facility] 10:43:32* Test Item Value Reference Range Interpretation Comme [facility] POCT GLU (test code = 1298709259) 148 mg/dL 70-110 H Lab Interpretation (test cod e = 72742-4) Abnormal [facility] CenterACTIVATED PARTIAL THRMPLAS [id number] 18:39:45* Test Item Value Reference Range Interpretation Comme nts APTT Patient (test code = 3173-2) See_Comment [Automated message] The system which generated this result transmitted reference range: 23 - 38 Seconds. The reference range was not used to interpret this result as normal/abnormal. LYNDSAY (test code = LYNDSAY) The [facility] patient population mean normal value for aPTT is 30 seconds. Lab Interpretation (test code = 59907-0) Normal [facility] CenterPROTHROMBIN TIME / [id number] 18:37:42* Test Item Value Reference Range Interpretation [...] the indications. Lab Interpretation (test code = 54714-0) Normal [facility] CenterTROPONIN [id number] 18:32:01* Test Item Value Reference Range Interpretation Comments TROPONIN I (test code = 8219341399) 0.019 ng/mL See_Comment [Automated message] The system [...] of biotin. Lab Interpretation (test code = 98499-1) Normal [facility] CenterN-TERMINAL [id number] 18:29:01* Test Item Value Reference Range Interpretation Comme nts NT-proBNP (test code = 6792757407) 2770 pg/mL See_Comment H [Automated message] The system which generated this result transmitted reference range: <=125. The reference range was not used to interpret this result as normal/abnormal. LYNDSAY (test code = LYNDSAY) Biotin has been reported to cause a negative bias, interpret results relative to patient's use of biotin. Lab Interpretation (test code = 14073-8) Abnormal [facility]. METABOLIC PANEL (75186)2022-07-31 18:21:42* Test Item Value Reference Range Interpretation Comme nts NA (test code = 4177628111) 136 mmol/L 135-145 K (test code = 5714992077) 4.6 mmol/L 3.5-5.0 CL (test code = 0241123723) 104 mmol/L 98-108 CO2 TOTAL (test code = 0700043588) 26 mmol/L 23-31 AGAP (test code = 5862137393) 2-16 BUN (test code = 4512904264) 9 mg/dL 7-23 GLUCOSE (test code = 5921858526) 97 mg/dL 70-110 CREATININE (test code = 8094254696) 0.64 mg/dL 0.50-1.04 TOTAL BILI (test code = 7907720440) 0.5 mg/dL 0.1-1.1 CALCIUM (test code = 4091040393) 8.2 mg/dL 8.6-10.6 L T PROTEIN (test code = 6351882070) 6.5 g/dL 6.3-8.2 ALBUMIN (test code = 8430946953) 3.9 g/dL 3.5-5.0 ALK PHOS (test code = 4786068396) 93 U/L 34-122 ALTv (test code = 1742-6) 18 U/L 5-35 AST(SGOT) (test code = 4337424292) 19 U/L 13-40 eGFR (test code = 0793471295) mL/min/1.73m2 LYNDSAY (test code = LYNDSAY) Association [...] imaging tests). Lab Interpretation (test code = 85876-3) [facility]normal [facility] CenterLIPASE20[facility] 18:21:01* Test Item Value Reference Range Interpretation Comme nts LIPASE (test code = 2079366226) 54 U/L 0-220 Lab Interpretation (test cod e = 44012-4) Normal [facility] WITH [id number] 18:07:00* Test Item Value Reference Range Interpretation Comme nts WBC (test code = 6690-2) See_Comment [Automated [employer]] The system which generated this result transmitted reference range: 4.30 - 11.10 10*3/?L. The reference range was not used to interpret this result as normal/abnormal. RBC (test code = 789-8) See_Comment [Automated [employer]] The system which generated this result transmitted [...] g/dL 31.6-35.1 L RDW-SD (test code = 83478-2) 53.1 fL 39.0-49.9 H RDW-CV (test code = 788-0) 17.0 % 12.0-15.5 H PLT (test code = 777-3) See_Comment H [Automated messa ge] The system which generated this result transmitted reference range: 166 - 358 10*3/?L. The reference range was not used to interpret this result as normal/abnormal. MPV (test code = 50368-7) 8.2 fL 9.5-12.9 L NRBC/100 WBC (test code = 4843115109) See_Comment [Automated [employer] ssage] The system which generated this result transmitted reference range: 0.0 - 10.0 /100 WBCs. The reference range was not used to interpret this result as normal/abnormal. NRBC x10^3 (test code = 4400215179) See_Comment [Automated messa ge] The system which generated this result transmitted reference range: 10*3/?L. The reference range was not used to interpret this result as normal/abnormal. GRAN MAT (NEUT) % (test code = 770-8) 64.0 % IMM GRAN % (test code = 2940655560) 0.40 % LYMPH % (test code = 736-9) 27.3 % MONO % (test code = 5905-5) 6.5 % EOS % (test code = 713-8) 1.1 % BASO % (test code = 706-2) 0.7 % GRAN MAT x10^3(ANC) (test code = 1785954970) 5.46 10*3/uL 1.88-7.09 IMM GRAN x10^3 (test code = 0840929066) 0.03 10*3/uL 0.00-0.06 LYMPH x10^3 (test code = 731-0) 2.32 10*3/uL 1.32-3.29 MONO x10^3 (test code = 742-7) 0.55 10*3/uL 0.33-0.92 EOS x10^3 (test code = 711-2) 0.09 10*3/uL 0.03-0.39 BASO x10^3 (test code = 704-7) 0.06 10*3/uL 0.01-0.07 Lab Interpretation (test code = 37918-9) Abnormal [facility] METABOLIC PANEL (NA, K, CL, CO2, GLUCOSE, BUN, CREATININE, CA)2022-05-08 06:37:01* Test Item Value Reference Range Interpretation Comme nts NA (test code = 5293773448) 137 mmol/L 135-145 K (test code = 1563907471) 3.8 mmol/L 3.5-5 CL (test code = 2356822681) 103 mmol/L 98-108 CO2 TOTAL (test code = 3651625030) 24 mmol/L 23-31 AGAP (test code = 0473101391) 2-16 BUN (test code = 3987790340) 13 mg/dL 7-23 GLUCOSE (test code = 5368843781) 90 mg/dL 70-110 CREATININE (test code = 0784682278) 0.69 mg/dL 0.5-1.04 CALCIUM (test code = 6068343177) 8.5 mg/dL 8.6-10.6 L eGFR (test code = 7075483573) mL/min/1.73m2 LYNDSAY (test code = LYNDSAY) Association [...] imaging tests). Lab Interpretation (test code = 77471-3) [facility]normal [facility] CenterMAGNESIUM2022-[facility] 06:37:01* Test Item Value Reference Range Interpretation Comme nts MAGNESIUM (test code = 4236842223) 2.1 mg/dL 1.7-2.4 Lab Interpretation (test cod e = 01721-7) Normal [facility] CenterPHOSPHORUS2022-10-20 06:37:01* Test Item Value Reference Range Interpretation Comme nts PHOSPHORUS (test code = 9313749430) 4.7 mg/dL 2.5-5 Lab Interpretation (test cod e = 30396-9) Normal [facility] CenterCB WITH [id number] 06:11:54* Test Item Value Reference Range Interpretation Comme nts WBC (test code = 6690-2) See_Comment [Automated [employer]] The system which generated this result transmitted reference range: 4.30 - 11.10 10*3/?L. The reference range was not used to interpret this result as normal/abnormal. RBC (test code = 789-8) See_Comment [Automated [employer]] The system which generated this result transmitted [...] 32.4 g/dL 31.6-35.1 RDW-SD (test code = 13303-8) 51.0 fL 39-49.9 H RDW-CV (test code = 788-0) 16.5 % 12-15.5 H PLT (test code = 777-3) See_Comment H [Automated messa ge] The system which generated this result transmitted reference range: 166 - 358 10*3/?L. The reference range was not used to interpret this result as normal/abnormal. MPV (test code = 10350-6) 8.3 fL 9.5-12.9 L NRBC/100 WBC (test code = 6149363727) See_Comment [Automated [employer] ssage] The system which generated this result transmitted reference range: 0.0 - 10.0 /100 WBCs. The reference range was not used to interpret this result as normal/abnormal. NRBC x10^3 (test code = 3752006062) See_Comment [Automated messa ge] The system which generated this result transmitted reference range: 10*3/?L. The reference range was not used to interpret this result as normal/abnormal. GRAN MAT (NEUT) % (test code = 770-8) 64.5 % IMM GRAN % (test code = 9581240628) 0.50 % LYMPH % (test code = 736-9) 27.1 % MONO % (test code = 5905-5) 6.6 % EOS % (test code = 713-8) 0.6 % BASO % (test code = 706-2) 0.7 % GRAN MAT x10^3(ANC) (test code = 1793133788) 5.28 10*3/uL 1.88-7.09 IMM GRAN x10^3 (test code = 7322010707) 0.04 10*3/uL 0-0.06 LYMPH x10^3 (test code = 731-0) 2.22 10*3/uL 1.32-3.29 MONO x10^3 (test code = 742-7) 0.54 10*3/uL 0.33-0.92 EOS x10^3 (test code = 711-2) 0.05 10*3/uL 0.03-0.39 BASO x10^3 (test code = 704-7) 0.06 10*3/uL 0.01-0.07 Lab Interpretation (test code = 86777-9) [facility]normal [facility]22-[facility]-07 01:18:10* Test Item Value Reference Range Interpretation Comme nts POCT GLU (test code = 8332262263) 120 mg/dL 70-110 H Lab Interpretation (test cod e = 83075-0) Abnormal [facility] CenterType and Screen - ONCE [id number] 05:46:35* Test Item Value Reference Range Interpretation Comme [facility] ABO & RH (test code = 20) O POSITIVE Performed at [facility] Laboratory [facility] Blood [place] [id number] Free: [phone] No. [id number] IAT (test code = 1185) Negative Performed at [facility] Laboratory [facility] Blood [place] [id number] Free: [phone] No. [id number] [facility] CenterBASI METABOLIC PANEL (NA, K, CL, CO2, GLUCOSE, BUN, CREATININE, CA)2022-05-05 08:22:57* Test Item Value Reference Range Interpretation Comme [facility] NA (test code = 2797724131) 136 mmol/L 135-145 K (test code = 9936589085) 4.9 mmol/L 3.5-5 CL (test code = 7945792786) 108 mmol/L 98-108 CO2 TOTAL (test code = 9460763668) 22 mmol/L 23-31 L AGAP (test code = 4518654048) 2-16 BUN (test code = 0180427887) 12 mg/dL 7-23 GLUCOSE (test code = 5681285102) 155 mg/dL 70-110 H CREATININE (test code = 3520037631) 0.63 mg/dL 0.5-1.04 CALCIUM (test code = 1714851351) 8.4 mg/dL 8.6-10.6 L eGFR (test code = 7975587237) mL/min/1.73m2 LYNDSAY (test code = LYNDSAY) Association [...] imaging tests). Lab Interpretation (test code = 61007-7) Abnormal [facility] CenterPROTHROMBIN TIME / [id number] 08:22:37* Test Item Value Reference Range Interpretation [facility] PROTIME PATIENT (test code = 5964-2) See_Comment [Automated Pulsar] The system which generated this result transmitted reference range: 10.1 - 12.6 Seconds. The reference range was not used to interpret this result as normal/abnormal. INR (test code = 6301-6) Normal INR <1.1; Warfarin Therapeutic range 2.0 to 3.0 or 2.5 to 3.5, depending upon the indications. Lab Interpretation (test code = 05750-0) Normal [facility] CenteraPTT2022-[facility] 08:22:37* Test Item Value Reference Range Interpretation Comme [facility] APTT Patient (test code = 3173-2) See_Comment [Automated messa ge] The system which generated this result transmitted reference range: 26 - 36 Seconds. The reference range was not used to interpret this result as normal/abnormal. Lab Interpretation (test code = 76484-9) Normal [facility] CenterFIBRINOGEN2022-10-17 08:22:37* Test Item Value Reference Range Interpretation Comme nts Fibrinogen (test code = 0868370373) 294 mg/dL 167-453 Lab Interpretation (test cod e = 00834-1) Normal [facility] CenterCB WITH [id number] 08:15:01* Test Item Value Reference Range Interpretation [...] g/dL 31.6-35.1 L RDW-SD (test code = 51539-7) 52.9 fL 39-49.9 H RDW-CV (test code = 788-0) 16.8 % 12-15.5 H PLT (test code = 777-3) See_Comment H [Automated messa ge] The system which generated this result transmitted reference range: 166 - 358 10*3/?L. The reference range was not used to interpret this result as normal/abnormal. MPV (test code = 23808-8) 8.3 fL 9.5-12.9 L NRBC/100 WBC (test code = 8390885945) See_Comment [Automated me ssage] The system which generated this result transmitted reference range: 0.0 - 10.0 /100 WBCs. The reference range was not used to interpret this result as normal/abnormal. NRBC x10^3 (test code = 1243834956) See_Comment [Automated messa ge] The system which generated this result transmitted reference range: 10*3/?L. The reference range was not used to interpret this result as normal/abnormal. GRAN MAT (NEUT) % (test code = 770-8) 86.4 % IMM GRAN % (test code = 2645649376) 0.40 % LYMPH % (test code = 736-9) 11.7 % MONO % (test code = 5905-5) 1.1 % EOS % (test code = 713-8) 0.0 % BASO % (test code = 706-2) 0.4 % GRAN MAT x10^3(ANC) (test code = 5160065567) 6.36 10*3/uL 1.88-7.09 IMM GRAN x10^3 (test code = 9759968171) 0.03 10*3/uL 0-0.06 LYMPH x10^3 (test code = 731-0) 0.86 10*3/uL 1.32-3.29 L MONO x10^3 (test code = 742-7) 0.08 10*3/uL 0.33-0.92 L EOS x10^3 (test code = 711-2) 0.03-0.39 L BASO x10^3 (test code = 704-7) 0.03 10*3/uL 0.01-0.07 Lab Interpretation (test code = 49673-1) Abnormal [facility] CenterVITAMIN D, [id number] 20:14:03* Test Item Value Reference Range Interpretation Comme nts VIT D 25OH (test code = 70440-4) 22 ng/mL 25-80 L LYNDSAY (test code = LYNDSAY) Deficiency: <20 ng/mLInsufficiency: 20-24 ng/mLOptimal: 25-80 ng/mL Lab Interpretation (test code = 81323-4) Abnormal [facility] CenterBASI MET[facility]OLIC PANEL (NA, K, CL, CO2, GLUCOSE, BUN, CREATININE, CA)2022-04-15 11:27:57* Test Item Value Reference Range Interpretation Comme nts NA (test code = 0384112140) 138 mmol/L 135-145 K (test code = 4684275059) 3.9 mmol/L 3.5-5 CL (test code = 9802961233) 106 mmol/L 98-108 CO2 TOTAL (test code = 5492353724) 23 mmol/L 23-31 AGAP (test code = 1800919341) 2-16 BUN (test code = 1289544295) 10 mg/dL 7-23 GLUCOSE (test code = 5514846570) 91 mg/dL 70-110 CREATININE (test code = 6297485639) 0.65 mg/dL 0.5-1.04 CALCIUM (test code = 7479898713) 8.1 mg/dL 8.6-10.6 L eGFR (test code = 1481983557) mL/min/1.73m2 LYNDSAY (test code = LYNDSAY) Association [...] imaging tests). Lab Interpretation (test code = 76357-5) Abnormal [facility] CenterSTROKE Protocol - Transthoracic echo (TTE) 2022-04-14 22:07:33* Test Item Value Reference Range Interpretation Comme nts Height (test code = 5986983466) in Weight (test code = 3673297320) lbs Systolic BP (test code = 4330920552) mmHg Diastolic BP (test code = 0455427485) mmHg Heart Rate (test code = 6546332180) bpm BSA (test code = 5318941478) 1.94 m2 TASV (test code = 5750404335) 15.5 cm/s LVIDD (test code = 0567462711) 6.00 cm Left Ventricular End Diastolic Volume by Teichholz Method (test code = 5751656) 183.0 mL IVS (test code = 9312375068) 1.09 cm Interventricular Septum Diastolic Thickness by 2D (test code = 5410770) 1.09 cm LVPWD (test code = 5757960448) 0.94 cm PW (test code = 6704619372) 0.94 cm 0.6-1.1 EF(Teich) (test code = 8899749836) 40.30 % LVIDS (test code = 7336521123) 4.80 cm Left Ventricular End Systolic Volume by Teichholz Method (test code = 0392673) 109.2 mL FS (test code = 4328338126) 20 % EF - 2D (test code = 22729716) 40.30 % LVOT diameter (test code = 2842399614) 2.05 cm LVOT area (test code = 5565911123) 3.30 cm2 Ao root diam (test code = 9543614834) 3.10 cm Aortic root (test code = 7135541512) 3.1 cm Ao root annulus (test code = 8341477360) 3.1 cm LA size (test code = 2614888328) 4.2 cm LAV(MOD-sp4) (test code = 6217078133) 64.90 mL MV Peak A Evette (test code = 5439674108) 115.7 cm/s E wave decelartion time (test code = 3037045232) 0.15 s MV Peak E Evette (test code = 6037104771) 106.2 cm/s E/A ratio (test code = 8517784524) ratio LVOT stroke volume (test code = 9951855960) 48.30 cm3 LVOT peak evette (test code = 1404611519) 78.4 cm/s LVOT mn grad (test code = 9755864128) mmHg AV LVOT peak gradient (test code = 2548860986) mmHg LVOT peak VTI (test code = 9321809628) 14.7 cm LV V1 mean (test code = 1222959355) 51.40 cm/s Ao peak evette (test code = 1456331492) 154.7 cm/s AV area peak evette (test code = 4994672266) 1.7 cm2 Ao max PG (test code = 8840244163) 9.60 mm[Hg] AV peak gradient (test code = 5652368621) mmHg AV regurgitation pressure 1/2 time (test code = 8645161141) 257.3 ms AI dec slope (test code = 1500289427) 498.10 cm/s2 AI max evette (test code = 2277789240) 437.60 cm/s AI max PG (test code = 8265109163) 77.80 mm[Hg] Tapse (test code = 3084528876) 2.19 cm LA Volume Index (BP) (test code = 8697358730) 32.0 mL/m2 LA volume (BP) (test code = 6129771840) 62.1 mL LAV(MOD-sp2) (test code = 9578979394) 52.70 mL A4C EF (test code = 7383340396) 44.80 % EF(sp4-el) (test code = 9996424616) 45.20 % SV(MOD-sp4) (test code = 2398852716) 71.20 mL SV(sp4-el) (test code = 1084725851) 73.90 mL LV Diastolic Volume (BP) (test code = 6109179742) 146.3 mL A2C EF (test code = 1821789037) 52.00 % EF(MOD-bp) (test code = 7643382039) 46.70 % EF(sp2-el) (test code = 9591220596) 52.40 % LV Systolic Volume (BP) (test code = 2906793226) 77.9 mL SV(MOD-bp) (test code = 8110954102) 68.40 mL SV(MOD-sp2) (test code = 9586515839) 69.20 mL EF (test code = 1078299717) Left Ventricular Stroke Volume by 2-D Biplane-MOD (test code = 2467105) 68.4 mL Radiology Study observation (narrative) (test code = 64904-8) LYNDSAY (test code = LYNDSAY) ?Left?Ventricle: Left [...] agent used and saline contrast was performed. [facility]14 16:48:36* Test Item Value Reference Range Interpretation Comme nts KEPPRA (test code = 6392868377) 12-46 L LYNDSAY (test code = LYNDSAY) Therapeutic range: 12-46 ?g/mL ? ?Toxic: Not well established.Test developed and characteristics determined by [facility] Laboratory Services. Lab Interpretation (test code = 64238-9) Abnormal [facility] Metabolic Panel (Na, K, Cl, CO2, Glucose, BUN, Creatinine, Ca)2022-04-14 10:50:11* Test Item Value Reference Range Interpretation Comme [facility] NA (test code = 7330791692) 136 mmol/L 135-145 K (test code = 4246153713) 3.8 mmol/L 3.5-5 CL (test code = 1580927103) 105 mmol/L 98-108 CO2 TOTAL (test code = 8765379091) 25 mmol/L 23-31 AGAP (test code = 6294534842) 2-16 BUN (test code = 9886606592) 9 mg/dL 7-23 GLUCOSE (test code = 5449185079) 101 mg/dL 70-110 CREATININE (test code = 8841121696) 0.66 mg/dL 0.5-1.04 CALCIUM (test code = 3012683223) 8.1 mg/dL 8.6-10.6 L eGFR (test code = 8708871695) mL/min/1.73m2 LYNDSAY (test code = LYNDSAY) Association [...] imaging tests). Lab Interpretation (test code = 05013-9) [facility], [id number] 10:50:11* Test Item Value Reference Range Interpretation Comme nts MAGNESIUM (test code = 7415709892) 1.9 mg/dL 1.7-2.4 Lab Interpretation (test cod e = 21115-1) Normal [facility] CenterThyroid Stimulating [id number] 22:21:44 * Test Item Value Reference Range Interpretation Comme nts TSH (test code = 2656592478) See_Comment Biotin has been reported to cause a negative bias, interpret results relative to patient's use of biotin. [Automated message] The system which generated this result transmitted reference range: 0.45 - 4.70 mIU/L. The reference range was not used to interpret this result as normal/abnormal. Lab Interpretation (test code = 85482-2) Normal [facility] CenterGLYCOSYLATED HEMOGLOBIN (A1C)2022-04-13 21:53:43* Test Item Value Reference Range Interpretation Comme nts HGB A1C (test code = 4548-4) 5.8 % 4-5.7 H LYNDSAY (test code = LYNDSAY) Reference RangesNormal: <5.7%Prediabetes: 5.7 - 6.4%Diabetes: > 6.5% Lab Interpretation (test code = 93026-4) Abnormal [facility] CenterFASTING LIPID PANEL (79378)(TOTAL CHOLESTEROL, TRIGLYCERIDES, HDL)2022-04-13 21:34:53* Test Item Value Reference Range Interpretation Comme nts CHOL (test code = 5360563141) 201 mg/dL 120-200 H HDL (test code = 2044927237) 56 mg/dL See_Comment [Automated [employer]] The system which generated this result transmitted reference range: >=50. The reference range was not used to interpret this result as normal/abnormal. HDLC RATIO (test code = 5657599783) See_Comment [Automated [employer]] The system which generated this result transmitted reference range: <=4.5. The reference range was not used to interpret this result as normal/abnormal. TRIG (test code = 2208636906) 355 mg/dL 30-170 H LDL CHOL (test code = 37002-6) 74 mg/dL See_Comment [Automated [employer]] The system which generated this result transmitted reference range: <=160. The reference range was not used to interpret this result as normal/abnormal. VLDL (test code = 5015982066) 71 mg/dL 5-60 H Lab Interpretation (test code = 81210-7) Abnormal [facility] CenterTroponin I - Code Myvhxe1619-93-71 18:46:27* Test Item Value Reference Range Interpretation Comments TROPONIN I (test code = 5973906720) 0.013 ng/mL See_Comment [Automated message] The system [...] of biotin. Lab Interpretation (test code = 79267-9) Normal [facility] CenterBasi Metabolic Panel (NA, K, CL, CO2, Glucose, BUN, Creatinine, CA) - Code [id number] 18:35:07* Test Item Value Reference Range Interpretation Comme nts NA (test code = 8614335411) 136 mmol/L 135-145 K (test code = 9666770652) 4.3 mmol/L 3.5-5 CL (test code = 1532183457) 105 mmol/L 98-108 CO2 TOTAL (test code = 8254905695) 27 mmol/L 23-31 AGAP (test code = 1880327332) 2-16 BUN (test code = 4271342891) 8 mg/dL 7-23 GLUCOSE (test code = 9968205240) 130 mg/dL 70-110 H CREATININE (test code = 7369530687) 0.75 mg/dL 0.5-1.04 CALCIUM (test code = 8035578538) 8.5 mg/dL 8.6-10.6 L eGFR (test code = 6035227617) mL/min/1.73m2 LYNDSAY (test code = LYNDSAY) Association [...] imaging tests). Lab Interpretation (test code = 54674-9) Abnormal [facility] CenteraPTT - Code [id number] 18:32:46* Test Item Value Reference Range Interpretation Comme [facility] APTT Patient (test code = 3173-2) See_Comment [Automated message] The system which generated this result transmitted reference range: 23 - 38 Seconds. The reference range was not used to interpret this result as normal/abnormal. LYNDSAY (test code = LYNDSAY) The [facility] patient population mean normal value for aPTT is 30 seconds. Lab Interpretation (test code = 94729-1) Normal [facility] CenterProthrombin Time / INR - Code [id number] 18:30:45* Test Item Value Reference Range Interpretation Comme [facility] PROTIME PATIENT (test code = 5964-2) See_Comment [Automated messa ge] The system which generated this result transmitted reference range: 12.0 - 14.7 Seconds. The reference range was not used to interpret this result as normal/abnormal. INR (test code = 6301-6) Normal INR <1.1; Warfarin Therapeutic range 2.0 to 3.0 or 2.5 to 3.5, depending upon the indications. Lab Interpretation (test code = 53148-6) Normal [facility] CenterCBC without Diff - Code [id number] 18:23:07* Test Item Value Reference Range Interpretation Comme [facility] WBC (test code = 6690-2) See_Comment [...] result as normal/abnormal. MPV (test code = 68025-3) 8.1 fL 9.5-12.9 L RDW-CV (test code = 788-0) 16.1 % 12-15.5 H RDW-SD (test code = 42077-2) 49.2 fL 39-49.9 NRBC x10^3 (test code = 0070537543) See_Comment [Automated [employer]] The system which generated this result transmitted reference range: 10*3/?L. The reference range was not used to interpret this result as normal/abnormal. NRBC/100 WBC (test code = 5688712779) See_Comment [Automated [employer]] The system which generated this result transmitted reference range: 0.0 - 10.0 /100 WBCs. The reference range was not used to interpret this result as normal/abnormal. IPF % (test code = 1792637323) Lab Interpretation (test code = 21526-5) Abnormal [facility] [id number] 21:06:40* Test Item Value Reference Range Interpretation Comments TROPONIN I (test code = 8053003232) 0.005 ng/mL See_Comment [Automated message] The system [...] of biotin. Lab Interpretation (test code = 31145-2) Normal [facility] CenterCOMP. METABOLIC PANEL (81033)2021-11-23 20:55:42* Test Item Value Reference Range Interpretation Comme nts NA (test code = 9332778115) 137 mmol/L 135-145 K (test code = 6590550798) 4.3 mmol/L 3.5-5.0 CL (test code = 1905976287) 104 mmol/L 98-108 CO2 TOTAL (test code = 4816636200) 22 mmol/L 23-31 L AGAP (test code = 6177086453) 2-16 BUN (test code = 1070646108) 15 mg/dL 7-23 GLUCOSE (test code = 8058480852) 114 mg/dL 70-110 H CREATININE (test code = 5906673199) 0.68 mg/dL 0.50-1.04 TOTAL BILI (test code = 5459128168) 0.5 mg/dL 0.1-1.1 CALCIUM (test code = 3884578792) 9.1 mg/dL 8.6-10.6 T PROTEIN (test code = 5767616488) 7.3 g/dL 6.3-8.2 ALBUMIN (test code = 4052863702) 4.4 g/dL 3.5-5.0 ALK PHOS (test code = 5891853048) 243 U/L 34-122 H ALTv (test code = 1742-6) 24 U/L 5-35 AST(SGOT) (test code = 0150255727) 30 U/L 13-40 eGFR (test code = 6650565884) mL/min/1.73m2 LYNDSAY (test code = LYNDSAY) Association [...] imaging tests). Lab Interpretation (test code = 51310-7) Abnormal [facility] CenterLIPASE2022-05-07 20:55:22* Test Item Value Reference Range Interpretation Comme nts LIPASE (test code = 3420535947) 96 U/L 0-220 Lab Interpretation (test cod e = 46555-2) Normal [facility] CenterPOCT UNGO4277-09-04 20:46:00* Test Item Value Reference Range Interpretation Comme nts POCT PREG (test code = 1605) negative On board controls acceptable with C Line (test code = 3574) present POCT PREG LOT # (test code = 3575) [id number] POCT PREG TEST DATE ( test code = 3576) 04/18/2023 Lab Interpretation (test cod e = 85823-0) Normal [facility] CenterCBC WITH [id number] 20:40:38* Test Item Value Reference Range Interpretation Comme nts WBC (test code = 6690-2) See_Comment [Automated [employer]] The system which generated this result transmitted reference range: 4.30 - 11.10 10*3/?L. The reference range was not used to interpret this result as normal/abnormal. RBC (test code = 789-8) See_Comment [Automated [employer]] The system which generated this result transmitted [...] 31.8 g/dL 31.6-35.1 RDW-SD (test code = 29977-9) 53.7 fL 39.0-49.9 H RDW-CV (test code = 788-0) 17.2 % 12.0-15.5 H PLT (test code = 777-3) See_Comment H [Automated messa ge] The system which generated this result transmitted reference range: 166 - 358 10*3/?L. The reference range was not used to interpret this result as normal/abnormal. MPV (test code = 83189-3) 8.5 fL 9.5-12.9 L NRBC/100 WBC (test code = 7966613517) See_Comment [Automated [employer] ssage] The system which generated this result transmitted reference range: 0.0 - 10.0 /100 WBCs. The reference range was not used to interpret this result as normal/abnormal. NRBC x10^3 (test code = 8679599144) <0.01 See_Comment [Automated messa ge] The system which generated this result transmitted reference range: 10*3/?L. The reference range was not used to interpret this result as normal/abnormal. GRAN MAT (NEUT) % (test code = 770-8) 53.7 % IMM GRAN % (test code = 0644273841) 0.90 % LYMPH % (test code = 736-9) 32.6 % MONO % (test code = 5905-5) 10.1 % EOS % (test code = 713-8) 1.5 % BASO % (test code = 706-2) 1.2 % GRAN MAT x10^3(ANC) (test code = 8119629339) 4.98 10*3/uL 1.88-7.09 IMM GRAN x10^3 (test code = 1359410825) 0.08 10*3/uL 0.00-0.06 H LYMPH x10^3 (test code = 731-0) 3.02 10*3/uL 1.32-3.29 MONO x10^3 (test code = 742-7) 0.94 10*3/uL 0.33-0.92 H EOS x10^3 (test code = 711-2) 0.14 10*3/uL 0.03-0.39 BASO x10^3 (test code = 704-7) 0.11 10*3/uL 0.01-0.07 H Lab Interpretation (test code = 43804-2) Abnormal [facility] CenterPOCT GLUCOSE (AUTOMATED)2021-11-23 20:17:33* Test Item Value Reference Range Interpretation Comme nts POCT GLU (test code = 4358792972) 111 mg/dL 70-110 H Notified Provide r Lab Interpretation (test code = 55523-3) Abnormal [facility] CenterPAP TEST, THINPREP, [id number] 00:00:00 * Test Item Value Reference Range Interpretation Comme nts SOURCE: (test code = 8001) Endocervical SLIDES: (test code = 8011) 1 LMP: (test code = 8021) 06/03/2021 SPECIMEN ADEQUACY: (test code = 45258) (NOTE) INTERPRETATION: (test code = 70501) ASCUS/EPITH. ABNORMALITY; SEE BELOW CISCO ADMINISTRATOR: (test code = 8101) CHANA Thacker(ASCP)[facility] PATHOLOGIST INTERPRETATION BY: (test code = 8122) Nahid Russell M.D. LOCATION: (test code = 62094) (NOTE) CPT: (test code = 8140) (NOTE) PAP TEST, THINPREP, [id number] 00:00:00* Test Item Value Reference Range Interpretation Comme nts SOURCE: (test code = 8001) Endocervical SLIDES: (test code = 8011) 1 LMP: (test code = 8021) 06/03/2021 SPECIMEN ADEQUACY: (test code = 75722) (NOTE) INTERPRETATION: (test code = 05455) ASCUS/EPITH. ABNORMALITY; SEE BELOW CISCO ADMINISTRATOR: (test code = 8101) CHANA Thacker(ASCP)[facility] PATHOLOGIST INTERPRETATION BY: (test code = 8122) Nahid Russell M.D. LOCATION: (test code = 52207) (NOTE) CPT: (test code = 8140) (NOTE) PAP TEST, THINPREP, [id number] 00:00:00* Test Item Value Reference Range Interpretation Comme nts SOURCE: (test code = 8001) Endocervical SLIDES: (test code = 8011) 1 LMP: (test code = 8021) 06/03/2021 SPECIMEN ADEQUACY: (test code = 37827) (NOTE) INTERPRETATION: (test code = 03510) ASCUS/EPITH. ABNORMALITY; SEE BELOW CISCO ADMINISTRATOR: (test code = 8101) CHANA Thacker(ASCP)[facility] PATHOLOGIST INTERPRETATION BY: (test code = 8122) Nahid Russell M.D. LOCATION: (test code = 98658) (NOTE) CPT: (test code = 8140) (NOTE) PAP TEST, THINPREP, [id number] 00:00:00* Test Item Value Reference Range Interpretation Comme nts SOURCE: (test code = 8001) Endocervical SLIDES: (test code = 8011) 1 LMP: (test code = 8021) 06/03/2021 SPECIMEN ADEQUACY: (test code = 61288) (NOTE) INTERPRETATION: (test code = 15840) ASCUS/EPITH. ABNORMALITY; SEE BELOW CISCO ADMINISTRATOR: (test code = 8101) CHANA Thacker(ASCP)[facility] PATHOLOGIST INTERPRETATION BY: (test code = 8122) Nahid Russell M.D. LOCATION: (test code = 76811) (NOTE) CPT: (test code = 8140) (NOTE) HPV HIGH RISK WITH GENOTYPE, [id number] 00:00:00* Test Item Value Reference Range Interpretation Comme nts HPV HIGH RISK INTERP (test c ode = 89113) POSITIVE HPV 16 (test code = 70342) POSITIVE HPV 18 (test code = 03782) NEGATIVE HPV, HR, OTHER GENOTYPES (te st code = 64748) POSITIVE HPV HIGH RISK WITH GENOTYPE, [id number] 00:00:00* Test Item Value Reference Range Interpretation Comme nts HPV HIGH RISK INTERP (test c ode = 26391) POSITIVE HPV 16 (test code = 16962) POSITIVE HPV 18 (test code = 42802) NEGATIVE HPV, HR, OTHER GENOTYPES (te st code = 75653) POSITIVE HPV HIGH RISK WITH GENOTYPE, [id number] 00:00:00* Test Item Value Reference Range Interpretation Comme nts HPV HIGH RISK INTERP (test c ode = 57234) POSITIVE HPV 16 (test code = 76016) POSITIVE HPV 18 (test code = 18289) NEGATIVE HPV, HR, OTHER GENOTYPES (te st code = 66416) POSITIVE HPV HIGH RISK WITH GENOTYPE, [id number] 00:00:00* Test Item Value Reference Range Interpretation Comme nts HPV HIGH RISK INTERP (test c ode = 74688) POSITIVE HPV 16 (test code = 00356) POSITIVE HPV 18 (test code = 93975) NEGATIVE HPV, HR, OTHER GENOTYPES (te st code = 70983) POSITIVE [id number] 03:22:48* Test Item Value Reference Range Interpretation Comme nts APPEARANCE (test code = 5933033467) Hazy Clear A COLOR (test code = 5345217228) Yellow Yellow PH (test code = 8977590881) 4.8-8.0 SP GRAVITY (test code = 1196442152) 1.003-1.030 GLU U QUAL (test code = 8728396565) Normal Normal BLOOD (test code = 4136537964) Negative Negative Interference fro m ascorbic acid may cause false negative results. KETONES (test code = 6998204990) 5 mg/dL Negative A PROTEIN (test code = 2887-8) Negative Negative UROBILIN (test code = 2725614474) 4.0 mg/dL Normal A BILIRUBIN (test code = 1010577388) Negative Negative NITRITE (test code = 2237675553) Negative Negative LEUK GRUPO (test code = 5998164820) Negative Negative RBC/HPF (test code = 7225173342) See_Comment [Automated [employer]] The system which generated this result transmitted reference range: 0 - 3 HPF. The reference range was not used to interpret this result as normal/abnormal. WBC/HPF (test code = 7454399581) <1 See_Comment [Automated [employer]] The system which generated this result transmitted reference range: 0 - 5 HPF. The reference range was not used to interpret this result as normal/abnormal. BACTERIA (test code = 1992143043) Few Negative A SQ EPITH (test code = 5892866932) HPF Lab Interpretation (test code = 60728-5) [facility]normal [facility] CenterURINALYSIS2021-[facility] 03:22:48* Test Item Value Reference Range Interpretation Comme nts APPEARANCE (test code = 5630575329) Hazy Clear A COLOR (test code = 3374461830) Yellow Yellow PH (test code = 5759674943) 4.8-8.0 SP GRAVITY (test code = 9264416062) 1.003-1.030 GLU U QUAL (test code = 1540501974) Normal Normal BLOOD (test code = 8631790067) Negative Negative KETONES (test code = 4938484416) 5 mg/dL Negative A PROTEIN (test code = 2887-8) Negative Negative UROBILIN (test code = 7752164906) 4.0 mg/dL Normal A BILIRUBIN (test code = 4810977905) Negative Negative NITRITE (test code = 9418458248) Negative Negative LEUK GRUPO (test code = 3502044645) Negative Negative RBC/HPF (test code = 3478648094) See_Comment [Automated [employer]] The system which generated this result transmitted reference range: 0 - 3 HPF. The reference range was not used to interpret this result as normal/abnormal. WBC/HPF (test code = 4943068792) <1 See_Comment [Automated TRAFIa ge] The system which generated this result transmitted reference range: 0 - 5 HPF. The reference range was not used to interpret this result as normal/abnormal. BACTERIA (test code = 9012349260) Few Negative A SQ EPITH (test code = 8849086193) HPF Lab Interpretation (test code = 84316-4) [facility]normal [facility] CenterTR[facility]IN [id number] 02:45:00* Test Item Value Reference Range Interpretation Comments TROPONIN I (test code = 7301716028) 0.002 ng/mL See_Comment [Automated message] The system [...] of biotin. Lab Interpretation (test code = 51948-8) Normal [facility] CenterTROPONIN [id number] 02:45:00* Test Item Value Reference Range Interpretation Comme nts TROPONIN I (test code = 3894715943) 0.002 ng/mL See_Comment [Automated Pulsar] The system which generated this result transmitted reference range: <=0.034. The reference range was not used to interpret this result as normal/abnormal. LYNDSAY (test code = LYNDSAY) Lab Interpretation (test code = 11999-1) Normal [facility] CenterN-TERMINAL [id number] 02:41:57* Test Item Value Reference Range Interpretation Comme nts NT-proBNP (test code = 4387172002) 169 pg/mL See_Comment H [Automated message] The system which generated this result transmitted reference range: <=125. The reference range was not used to interpret this result as normal/abnormal. LYNDSAY (test code = LYNDSAY) Biotin has been reported to cause a negative bias, interpret results relative to patient's use of biotin. Lab Interpretation (test code = 78138-1) Abnormal [facility] CenterN-TERMINAL PEI-[id number] 02:41:57* Test Item Value Reference Range Interpretation Comme nts NT-proBNP (test code = 4400539330) 169 pg/mL See_Comment H [Automated Pulsar] The system which generated this result transmitted reference range: <=125. The reference range was not used to interpret this result as normal/abnormal. LYNDSAY (test code = LYNDSAY) Lab Interpretation (test code = 68616-5) Abnormal [facility]. METABOLIC PANEL (81735)2021-03-17 02:09:13* Test Item Value Reference Range Interpretation Comme nts NA (test code = 6136864633) 137 mmol/L 135-145 K (test code = 8111682668) 4.2 mmol/L 3.5-5.0 CL (test code = 2265931840) 102 mmol/L 98-108 CO2 TOTAL (test code = 2649279931) 25 mmol/L 23-31 AGAP (test code = 6411130948) 2-16 BUN (test code = 1499685960) 18 mg/dL 7-23 GLUCOSE (test code = 3913966545) 144 mg/dL 70-110 H CREATININE (test code = 0398034066) 0.77 mg/dL 0.50-1.04 TOTAL BILI (test code = 8418617485) 0.4 mg/dL 0.1-1.1 CALCIUM (test code = 2044404446) 8.9 mg/dL 8.6-10.6 T PROTEIN (test code = 9135118364) 6.8 g/dL 6.3-8.2 ALBUMIN (test code = 7751977856) 3.9 g/dL 3.5-5.0 ALK PHOS (test code = 9655669055) 84 U/L 34-122 ALTv (test code = 1742-6) 13 U/L 5-35 AST(SGOT) (test code = 0875279356) 17 U/L 13-40 eGFR (test code = 5667320691) mL/min/1.73m2 LYNDSAY (test code = LYNDSAY) Association [...] imaging tests). Lab Interpretation (test code = 80405-7) Abnormal [facility]. METABOLIC PANEL (61521)2021-03-17 02:09:13* Test Item Value Reference Range Interpretation Comme nts NA (test code = 4803768892) 137 mmol/L 135-145 K (test code = 8423743264) 4.2 mmol/L 3.5-5.0 CL (test code = 8296961924) 102 mmol/L 98-108 CO2 TOTAL (test code = 1514086997) 25 mmol/L 23-31 AGAP (test code = 4257389354) 2-16 BUN (test code = 3308111465) 18 mg/dL 7-23 GLUCOSE (test code = 5607980761) 144 mg/dL 70-110 H CREATININE (test code = 0336843872) 0.77 mg/dL 0.50-1.04 TOTAL BILI (test code = 7139156067) 0.4 mg/dL 0.1-1.1 CALCIUM (test code = 8459559570) 8.9 mg/dL 8.6-10.6 T PROTEIN (test code = 1462547185) 6.8 g/dL 6.3-8.2 ALBUMIN (test code = 5661626299) 3.9 g/dL 3.5-5.0 ALK PHOS (test code = 2688646296) 84 U/L 34-122 ALTv (test code = 1742-6) 13 U/L 5-35 AST(SGOT) (test code = 1167292086) 17 U/L 13-40 eGFR (test code = 3302445938) mL/min/1.73m2 LYNDSAY (test code = LYNDSAY) Lab Interpretation (test cod e = 80568-2) Abnormal [facility] WITH [id number] 01:56:33* Test Item Value Reference Range Interpretation [...] g/dL 31.6-35.1 L RDW-SD (test code = 68349-2) 55.5 fL 39.0-49.9 H RDW-CV (test code = 788-0) 18.9 % 12.0-15.5 H PLT (test code = 777-3) See_Comment H [Automated messa ge] The system which generated this result transmitted reference range: 166 - 358 10*3/?L. The reference range was not used to interpret this result as normal/abnormal. MPV (test code = 92375-9) 8.2 fL 9.5-12.9 L NRBC/100 WBC (test code = 5378652036) See_Comment [Automated me ssage] The system which generated this result transmitted reference range: 0.0 - 10.0 /100 WBCs. The reference range was not used to interpret this result as normal/abnormal. NRBC x10^3 (test code = 1975855072) <0.01 See_Comment [Automated messa ge] The system which generated this result transmitted reference range: 10*3/?L. The reference range was not used to interpret this result as normal/abnormal. GRAN MAT (NEUT) % (test code = 770-8) 61.7 % IMM GRAN % (test code = 4316146380) 0.80 % LYMPH % (test code = 736-9) 28.5 % MONO % (test code = 5905-5) 6.3 % EOS % (test code = 713-8) 1.8 % BASO % (test code = 706-2) 0.9 % GRAN MAT x10^3(ANC) (test code = 3083818971) 7.31 10*3/uL 1.88-7.09 H IMM GRAN x10^3 (test code = 5965745870) 0.09 10*3/uL 0.00-0.06 H LYMPH x10^3 (test code = 731-0) 3.38 10*3/uL 1.32-3.29 H MONO x10^3 (test code = 742-7) 0.75 10*3/uL 0.33-0.92 EOS x10^3 (test code = 711-2) 0.21 10*3/uL 0.03-0.39 BASO x10^3 (test code = 704-7) 0.11 10*3/uL 0.01-0.07 H Lab Interpretation (test code = 99223-4) Abnormal [facility] WITH [id number] 01:56:33* Test Item Value Reference Range Interpretation [...] g/dL 31.6-35.1 L RDW-SD (test code = 91285-2) 55.5 fL 39.0-49.9 H RDW-CV (test code = 788-0) 18.9 % 12.0-15.5 H PLT (test code = 777-3) See_Comment H [Automated messa ge] The system which generated this result transmitted reference range: 166 - 358 10*3/?L. The reference range was not used to interpret this result as normal/abnormal. MPV (test code = 29292-6) 8.2 fL 9.5-12.9 L NRBC/100 WBC (test code = 0885373216) See_Comment [Automated [employer] ssage] The system which generated this result transmitted reference range: 0.0 - 10.0 /100 WBCs. The reference range was not used to interpret this result as normal/abnormal. NRBC x10^3 (test code = 7660488532) <0.01 See_Comment [Automated messa ge] The system which generated this result transmitted reference range: 10*3/?L. The reference range was not used to interpret this result as normal/abnormal. GRAN MAT (NEUT) % (test code = 770-8) 61.7 % IMM GRAN % (test code = 0509692635) 0.80 % LYMPH % (test code = 736-9) 28.5 % MONO % (test code = 5905-5) 6.3 % EOS % (test code = 713-8) 1.8 % BASO % (test code = 706-2) 0.9 % GRAN MAT x10^3(ANC) (test code = 3249668331) 7.31 10*3/uL 1.88-7.09 H IMM GRAN x10^3 (test code = 6573759741) 0.09 10*3/uL 0.00-0.06 H LYMPH x10^3 (test code = 731-0) 3.38 10*3/uL 1.32-3.29 H MONO x10^3 (test code = 742-7) 0.75 10*3/uL 0.33-0.92 EOS x10^3 (test code = 711-2) 0.21 10*3/uL 0.03-0.39 BASO x10^3 (test code = 704-7) 0.11 10*3/uL 0.01-0.07 H Lab Interpretation (test code = 31610-0) Abnormal [facility]-19 (ID NOW RAPID TESTING)2021-03-17 01:38:12* Test Item Value Reference Range Interpretation Comme nts SARS-CoV-2 Rapid ID NOW (test code = 27524-5) Not Detected Not Detected LYNDSAY (test code = LYNDSAY) ID NOW COVID-19 As say is an isothermal nucleic acid amplification test intended for the qualitative detection of nucleic acid from SARS-CoV-2 viral RNA in nasopharyngeal ([employer]) specimens. It is used under Emergency Use [...] clinically indicated. Lab Interpretation (test code = 10472-0) Normal [facility]19 (ID NOW RAPID TESTING)2021-03-17 01:38:12* Test Item Value Reference Range Interpretation Comme nts SARS-CoV-2 Rapid ID NOW (raisa t code = 58940-2) Not Detected Not Detected LYNDSAY (test code = LYNDSAY) Lab Interpretation (test cod e = 81325-1) Normal [facility] [facility] (ID NOW RAPID TESTING)2021-02-19 17:42:45* Test Item Value Reference Range Interpretation Comme nts SARS-CoV-2 Rapid ID NOW (test code = 22652-3) Not Detected Not Detected LYNDSAY (test code = LYNDSAY) ID NOW COVID-19 As say is an isothermal nucleic acid amplification test intended for the qualitative detection of nucleic acid from SARS-CoV-2 viral RNA in nasopharyngeal (CUSTOMER FACILITIES SUPERVISOR) specimens. It is used under Emergency Use [...] clinically indicated. Lab Interpretation (test code = 99989-0) Normal [facility] W WMNSIGVN2417-08-14 17:24:55Thickening of the gastric antrum and duodenal [...] Electronicallysigned by James Freeman at 02/19/2021 12:24 PMUnF[facility] and ClinicUrinalysis2021-08-03 17:03:40* Test Item Value Reference Range Interpretation Comme nts APPEARANCE (test code = 7484356962) Hazy Clear A COLOR (test code = 1483136174) Mabel Yellow A PH (test code = 5355847681) 4.8-8.0 SP GRAVITY (test code = 2949768759) 1.003-1.030 H GLU U QUAL (test code = 2663834967) Normal Normal BLOOD (test code = 2079731670) Negative Negative KETONES (test code = 2486215838) 5 mg/dL Negative A PROTEIN (test code = 2887-8) 30 mg/dL Negative A UROBILIN (test code = 3244250445) 4.0 mg/dL Normal A BILIRUBIN (test code = 0691776153) 4 mg/dL Negative A NITRITE (test code = 3722132078) Negative Negative LEUK [place]UPO (test code = 8339282961) Negative Negative RBC/HPF (test code = 2031281945) See_Comment H [Automated messa ge] The system which generated this result transmitted reference range: 0 - 3 HPF. The reference range was not used to interpret this result as normal/abnormal. WBC/HPF (test code = 0194997719) See_Comment H [Automated messa ge] The system which generated this result transmitted reference range: 0 - 5 HPF. The reference range was not used to interpret this result as normal/abnormal. BACTERIA (test code = 8649707772) Few Negative A MUCOUS (test code = 4061870276) Moderate Negative LPF A SQ EPITH (test code = 8940119463) HPF CA OXALATE (test code = 5135648073) See_Comment H [Automated messa ge] The system which generated this result transmitted reference range: <=1 HPF. The reference range was not used to interpret this result as normal/abnormal. Ictotest (test code = 6030605421) Negative Lab Interpretation (test code = 78030-7) Abnormal [facility] Metabolic Xqkci0070-94-14 16:34:55* Test Item Value Reference Range Interpretation Comme nts NA (test code = 2072658655) 139 mmol/L 135-145 K (test code = 4473305219) 4.3 mmol/L 3.5-5.0 CL (test code = 9303662431) 105 mmol/L 98-108 CO2 TOTAL (test code = 0051259761) 26 mmol/L 23-31 AGAP (test code = 8956536092) 2-16 BUN (test code = 9479861462) 11 mg/dL 7-23 GLUCOSE (test code = 2820870397) 95 mg/dL 70-110 CREATININE (test code = 7929021235) 0.70 mg/dL 0.50-1.04 TOTAL BILI (test code = 4035457771) 0.6 mg/dL 0.1-1.1 CALCIUM (test code = 9586006212) 8.9 mg/dL 8.6-10.6 T PROTEIN (test code = 2288432712) 7.7 g/dL 6.3-8.2 ALBUMIN (test code = 8944228332) 4.1 g/dL 3.5-5.0 ALK PHOS (test code = 6514752063) 79 U/L 34-122 ALTv (test code = 1742-6) 10 U/L 5-35 AST(SGOT) (test code = 0431560321) 22 U/L 13-40 eGFR (test code = 9974569457) mL/min/1.73m2 LYNDSAY (test code = LYNDSAY) Association [...] or urine or abnormalities in imaging tests). [facility] CenterLipase, Qcaad3413-92-95 16:34:14* Test Item Value Reference Range Interpretation Comme nts LIPASE (test code = 0656025448) 45 U/L 0-220 Lab Interpretation (test cod e = 60197-0) Normal [facility] CenterCB with Orzzrajoaaua7727-04-03 16:21:12* Test Item Value Reference Range Interpretation Comme nts WBC (test code = 6690-2) See_Comment [Automated Pulsar] The system which generated this result transmitted reference range: 4.30 - 11.10 10*3/?L. The reference range was not used to interpret this result as normal/abnormal. RBC (test code = 789-8) See_Comment [Automated Pulsar] The system which generated this result transmitted [...] g/dL 31.6-35.1 L RDW-SD (test code = 96385-3) 54.4 fL 39.0-49.9 H RDW-CV (test code = 788-0) 18.3 % 12.0-15.5 H PLT (test code = 777-3) See_Comment H [Automated messa ge] The system which generated this result transmitted reference range: 166 - 358 10*3/?L. The reference range was not used to interpret this result as normal/abnormal. MPV (test code = 67107-1) 8.5 fL 9.5-12.9 L NRBC/100 WBC (test code = 4945094875) See_Comment [Automated Fundbox ssage] The system which generated this result transmitted reference range: 0.0 - 10.0 /100 WBCs. The reference range was not used to interpret this result as normal/abnormal. NRBC x10^3 (test code = 3304734766) <0.01 See_Comment [Automated TRAFIa ge] The system which generated this result transmitted reference range: 10*3/?L. The reference range was not used to interpret this result as normal/abnormal. GRAN MAT (NEUT) % (test code = 770-8) 78.3 % IMM GRAN % (test code = 1589375582) 0.40 % LYMPH % (test code = 736-9) 15.4 % MONO % (test code = 5905-5) 4.8 % EOS % (test code = 713-8) 0.1 % BASO % (test code = 706-2) 1.0 % GRAN MAT x10^3(ANC) (test code = 2862054026) 7.15 10*3/uL 1.88-7.09 H IMM GRAN x10^3 (test code = 7768440596) 0.04 10*3/uL 0.00-0.06 LYMPH x10^3 (test code = 731-0) 1.41 10*3/uL 1.32-3.29 MONO x10^3 (test code = 742-7) 0.44 10*3/uL 0.33-0.92 EOS x10^3 (test code = 711-2) <0.03 0.03-0.39 L BASO x10^3 (test code = 704-7) 0.09 10*3/uL 0.01-0.07 H Lab Interpretation (test code = 49321-7) Abnormal [facility] Notes Date/Time Note Provider Source 2023-08-12 16:08:34 VjVJctKrpkFMw64U5ngVvhOf/IsbxLg5s+T3SV zXprzaJmBETjy6lYVyV1NNTlth0666-10-14B3 6:08:34 Bryan spoke to patient and patient decided to leave AMA.AMA form signed by patient and attached to paperwork.Patient in stable condition with AMA. IV line removed and patient was assisted onto wheelchair and moved to the lobby.Patient called her prior to leaving room and will be picking up patient. 43564-2Stokeyzqj department OnhjKV6434-80-96C32:09:43Emergen department NoteTXT1.2.840.937890.1.13.104.2.7.2.7 64896|[id number] for patient krsf19580-2ChpgAHTIOLCSBQWSduqiayty C-CDA narrative [id number] Julia [address] Zb[id number] SSHRITUEXEXSWAUXZNYS4334-13-65Z77:09:4 31.2.840.614572.1.72.3.15|1.2.840.1143 50.1.13.104.2.7.2.727879_[id number] Steph Dumont RN [facility] 2023-08-12 15:56:21 +/FmRaWuOvW493/jcXepNHdeU8Q7hHGJwUzDKd N6DjhrhusXvBrUkxtbCjiIEJtQ7309-02-85M1 5:56:21 Patient requesting to talk to provider - provider aware.Patient refused tylenol as she said medication does not improve her condition and she does not want to throw it up.Patient also refusing blood draw at this time. 16607-3Livjatjop department SwuhGL6630-39-13U07:57:14[facility] NoteTXT1.2.840.197274.1.13.104.2.7.2.7 93607|[id number] for patient ftgh55977-9MqayVWCIOIKNTACGhctosjsi C-CDA narrative text[address] Wv[id number] MENXWVLUCLAPPHGJLWUK5362-76-79J24:57:1 41.2.840.022233.1.72.3.15|1.2.840.1143 50.1.13.104.2.7.2.727879_[id number] [facility] 2023-08-12 14:50:00 bn3VgXAJ1tiNjTadFnQr6ROLcKsIJz2h0B/mPV jz5IqrL3ARIa0hM9vX9TJ7Jqvq8110-01-11X7 4:50:00 Patient's name and verified with patient.No chief complaint on file.Patient moved to room via wheelchair due to nature of complain.Patient is conscious and alert, with normal/unlabored breathing, and normal color/tone for ethnicity -oriented to name, time, place, and situation. GCS 15.Patient reports she has been out of her medication for ~1 weeks. Says she had a seizure yesterday; fell and hit her chest .Complaining of chest pain at this time. Pain is reproducible.Patient denies nausea, vomiting, shortness of breath, fever, chills and diarrhea.Says that her seizures are usually provoked by pain.Past Medical History:Diagnosis DateAnxietyExtremeBipolar disorderBreast pain 09/18/2015COPD (chronic obstructive pulmonary disease)DiverticulitisEpilepsyHyperten sionMI (myocardial infarction) 07/20/2007Slipped discStomach cancerSubstance abuseMarijuana daily-for anxietyAllergies noted in chart.Vitals obtained. Assessment performed.IV in place and patent.Placed on continuous spo2/cardiac monitoring, HR 106Bed low and locked, secured with two rails, call light within reach.Belongings at bedside. Patient aware of plan of care.Steph Dumont RN [address] NmutEK7764-83-04N01:29:07[facility] NoteTXT1.2.840.463181.1.13.104.2.7.2.7 87915|[id number] for patient ggfq68182-5YpreFPZFREEXVAWVjjcexibr C-CreateA narrative [employer] Highlights[id number] MSUMMBZCEZVWQPQOPZCI3049-98-40R55:29:0 71.2.840.641612.1.72.3.15|1.2.840.1143 50.1.13.104.2.7.2.727879_[id number] [facility] 2023-08-12 14:17:22 gr4CMNs4xF7jE5Dt2WO25QZdKXhg++4kzq7hv7 bFZ6JvbP+dcRYkmviTdCMnOava7651-29-35S5 4:17:22 Patient had witnessed seizure like activity.DO Flor at bedside.Patient stopped seizure activity and had no postictal phase.Patient coherent, alert and oriented/answering all questions appropriately. [address] NaicYO0609-84-98F84:18:15[facility] NoteTXT1.2.840.514227.1.13.104.2.7.2.7 57568|[id number] for patient wzjz16004-8BfkhNFNMYTWCYUNSqjvhycay C-CDA narrative textUT70 [address] [id number] PQQDUOWPRTPSUCVDKQEX0033-14-45J15:18:1 51.2.840.031439.1.72.3.15|1.2.840.1143 50.1.13.104.2.7.2.727879_[id number] [facility] 2023-08-12 13:45:33 KnBLd8Do8nGSMoroUyh3WdB10Em8pYf/HjgJpP W+B+tj6dOW1d2aVw/YPm9EBCR92738-92-46D9 3:45:33 Patient here for chest pain that started approximately 1 hour ago. Patient had seizure like activity in the vehicle while attempting to get patient out of the car, patient had no post ictal phase. Patient c/o substernal chest pain and jaw pain. 04769-3Gruujhsre department Triage nxofQO7972-70-05L67:46:59[facility] Triage noteTXT1.2.840.937199.1.13.104.2.7.2.7 24187|[id number] for patient bsnl89740-7Umqdmblux department NoteLNNARRATIVEFormatted C-CDA narrative [id number] S Cryer RN[address] [id number] ICSKALSHNKLOSXMFLNWX1780-73-54I06:46:5 91.2.840.647467.1.72.3.15|1.201143 50.1.13.104.2.7.2.727879_[id number] Jasvir Reaves RN [facility] 2023-08-12 13:42:00 LhLkXcBjAJNB3+avrS/9wyaYqgeBrQJO22Hx/c +2Rw+/Y2EM68O5m7m9iuvsPRcF6499-82-20T9 3:42:00 [facility] Emergency Department NotePatient Name: Heather TurnerDate of : 1970 53 year old femaleTreatment Room: AR3/CW9Pzsodid Record Number: [id number] Care Physician: PATIENT DOES NOT HAVE A PCPPatient Escorted by: Family [5]Mode of Arrival: Personal means [1]EMS Treatment Prior to ED Arrival:[place] treatment: NoneTravel and Exposure Screening:SymptomsDoes patient have any of these symptoms?: (not recorded)Exposure ScreeningHas patient had contact with someone with a communicable disease in the last month?: (not recorded)Diseases exposed to:: (not recorded)Is Patient ?: (not recorded)Exposure Date: (not recorded)Chief Complaint:No chief complaint on file.History of Present Illness:Heather Turner is a 53 year old female with seizure like activity. Had seizure in ED at time of evaluation. Semiology of figure four pointing, left gaze preference, tachycardia 145, unresponsive, GTC movements. Spontaneously aborted. No post ictal phase or tongue injury. States she heard nurses saying it was psych during seizure.Past Medical History/Immunizations:Past Medical History:Diagnosis DateAnxietyExtremeBipolar disorderBreast pain 09/18/2015COPD (chronic obstructive pulmonary disease)DiverticulitisEpilepsyHyperten sionMI (myocardial infarction) 07/20/2007Slipped discStomach cancerSubstance abuseMarijuana daily-for anxietyTetanus received in last 5 years: NoChildhood immunizations: Ry-io-ztfuKkbjtvsqm:AllergiesAllergen ReactionsGreen Tea Other - See commentsSeizuresDiclofenac HypertensionKeppra [Levetiracetam] Other - See commentsMakes seizures worsePast Social History:Tobacco UseEvery Day; 1 pack/day for 30.00 years; Types: Cigarettes, CigarsPassive Exposure: CurrentSmokeless Tobacco: Never used smokeless tobacco.Alcohol UseNo.Drug UseYes; Marijuana.Comments: smokes marijuana dailySexual ActivitySexually active; Partners: Male.Past Surgical History:Past Surgical History:Procedure Laterality DateANTERIOR CERVICAL FUSIONCHOLECYSTECTOMYHAND/FINGER SURGERY UNLISTED Bilateral3 L hand, 3 R handMETATARSAL OSTEOTOMY Right 08/14/2015Surgeon: Luis Jones Jr., DPM; [facility]:Review of SystemsPhysical Exam:ED Triage Vitals [08/12/23 1347]Weight 81.6 kg (180 lb)Actual or estimatedHeight 1.575 m (5' 2")BP (!) 140/102Pulse 114Resp 22Temp 37.2 ?C (99 ?F)Temp source OralSpO2 100 %Measured on Room airPhysical ExamRadiology:No orders to displayLab Results:Lab ResultsCBC WITH DIFF - AbnormalResult Value Ref RangeWBC 8.36 4.30 - 11.10 10*3/?LRBC 4.23 3.93 - 5.25 10*6/?LHGB 11.8 11.6 - 15.0 g/dLHCT 37.6 35.7 - 45.2 %MCV 88.9 80.6 - 95.5 fLMCH 27.9 25.9 - 32.8 pgMCHC 31.4 (*) 31.6 - 35.1 g/dLRDW-SD 50.8 (*) 39.0 - 49.9 fLRDW-CV 15.8 (*) 12.0 - 15.5 %PLT 418 (*) 166 - 358 10*3/?LMPV 8.6 (*) 9.5 - 12.9 fLNRBC/100 WBC 0.0 0.0 - 10.0 /100 WBCsNRBC x10^3 <0.01 10*3/?LGRAN MAT (NEUT) % 74.0 %IMM GRAN % 0.40 %LYMPH % 14.5 %MONO % 8.1 %EOS % 2.0 %BASO % 1.0 %GRAN MAT x10^3(ANC) 6.19 1.88 - 7.09 10*3/uLIMM GRAN x10^3 0.03 0.00 - 0.06 10*3/uLLYMPH x10^3 1.21 (*) 1.32 - 3.29 10*3/uLMONO x10^3 0.68 0.33 - 0.92 10*3/uLEOS x10^3 0.17 0.03 - 0.39 10*3/uLBASO x10^3 0.08 (*) 0.01 - 0.07 10*3/uLCOMP. METABOLIC PANEL (88192) - AbnormalNA 140 135 - 145 mmol/LK 4.1 3.5 - 5.0 mmol/LCL 111 (*) 98 - 108 mmol/LCO2 TOTAL 20 (*) 23 - 31 mmol/LAGAP 9 2 - 16BUN 10 7 - 23 mg/dLGLUCOSE 101 70 - 110 mg/dLCREATININE 0.64 0.50 - 1.04 mg/dLTOTAL BILI 0.4 0.1 - 1.1 mg/dLCALCIUM 8.4 (*) 8.6 - 10.6 mg/Francesco PROTEIN 7.1 6.3 - 8.2 g/dLALBUMIN 4.0 3.5 - 5.0 g/dLALK PHOS 82 34 - 122 U/LALTv 13 5 - 35 U/LAST(SGOT) 21 13 - 40 U/LeGFR 107.1 mL/min/1.05f8GKZIAA ACID WHOLE BLOOD - NormalLACTIC ACID 1.56 0.50 - 2.20 mmol/LURINALYSISTROPONIN IEKG:If EKG completed, see Procedure Note.Orders and Treatments:Orders Placed This EncounterProceduresCbc with DiffComp. Metabolic Panel (24199)UrinalysisLactic Acid Whole BloodTroponin IOrders Placed This EncounterMedicationslacosamide (VIMPAT) 100 mg in NaCl 0.9% (NS) 50 mL piggybackacetaminophen (TYLENOL) tablet 1,000 mgFirst Provider Eval:ED EventsDate/Time Event User Kobgabxa41/24/24 1345 Medical Screening Begins BRIAN BRYAN --08/12/23 1345 First Provider Evaluation BRIAN BRYAN --ED COURSEED Course as of 08/12/23 1605Wed Aug 12 Lactic normal. Patient requesting to leave prior to treatment complete. Discussed risks of leaving. [PS]ED Course User Index[PS] Brian Bryan DODiagnosis/Impression as of 08/12/23 1605SeizureChest pain, unspecified typeProcedures:ProceduresMDM:Medical Decision MakingStjesika Brooklynn Turner is a 53 year old female with seizure vs PNES. Needs EEG and further evaluation regarding etiology of symptoms. Vimpat load in ED.EKG with Sinus Tachycardia. Age indeterminate infarct. No ST segment elevations or depressions.Patient left AMA.Problems Addressed:Chest pain, unspecified type: acute illness or injurySeizure: acute illness or injury with systemic symptomsAmount and/or Complexity of Data ReviewedLabs: ordered.RiskOTC drugs.Parenteral controlled substances.Flowsheet Documentation:Scoring Tools:No data recordedDisposition/Condition:ED DispositionED DispositionAMAConditionStableComment-- Discharge Medications:Patient's MedicationsSTART taking these medicationsNo medications on fileCONTINUE taking these medications which have NOT CHANGEDALBUTEROL 2.5 MG /3 ML (0.083 %) NEBULIZER SOLUTION Inhale 3 mL every 4 (four) hours as needed for Wheezing or Shortness of Breath.AMLODIPINE (NORVASC) 10 MG TABLET Take 1 Tab by mouth daily.ASPIRIN 81 MG CHEWABLE TABLET Take 1 tablet by mouth in the morning.ATORVASTATIN 40 MG TABLET Take 1 tablet by mouth at bedtime.CARVEDILOL (COREG) 6.25 MG TABLET Take 1 Tab by mouth 2 (two) times daily with meals.CYCLOBENZAPRINE 5 MG TABLET Take 1 tablet by mouth in the morning and 1 tablet at noon and 1 tablet in the evening.DICYCLOMINE 20 MG TABLET Take 1 tablet by mouth 4 (four) times daily as needed for Abdominal pain.LACOSAMIDE (VIMPAT) 100 MG TABLET Take 1 tablet by mouth in the morning and 1 tablet in the evening.LISINOPRIL (PRINIVIL,ZESTRIL) 40 MG TABLET Take 1 Tab by mouth daily.LORATADINE (CLARITIN LIQUI-GEL) 10 MG CAPSULE Take by mouth daily.METHOCARBAMOL 500 MG TABLET Take 2 tablets by mouth 4 (four) times daily as needed for Pain (scale 7-10).MULTIVITAMIN ORAL Take 1 Tab by mouth daily.OMEGA-3 FATTY ACIDS-VITAMIN E (FISH OIL) 1,000 MG CAPSULE Take 1 g by mouth daily.ONDANSETRON 4 MG TABLET Take 4 mg by mouth every 8 (eight) hours as needed.PANTOPRAZOLE 40 MG EC TABLET Take 40 mg by mouth daily.PROMETHAZINE 25 MG TABLET Take 1 tablet by mouth every 6 (six) hours as needed for Nausea and Vomiting (N/V).START taking Modified Medications as PrescribedNo medications on fileSTOP taking these medicationsNo medications on fileFollow-up:Contact information for follow-Yehuda Segovia MDSpecialty: -[facility] AND [address] [id number]: [phone]-Emergency DepartmentSpecialty: Emergency Vrgmegiq[address] [place] [address]Sjokh: [phone]: If symptoms worsen as documented in the dischargeElectronically signed by:Brian Bryan DO08/12/23 1605Brian Bryan DO08/12/23 1605 53261-6Rqwwjmcbf Emergency department XvgbIQ7833-90-07O76:05:59Physician Emergency department NoteTXT1.2.840.671418.1.13.104.2.7.2.7 62938|[id number] for patient yqeh34254-3Nombpipah department NoteLNNARRATIVEFormatted C-CDA narrative text[address] [id number] FVPCXMLMNRFEVCTVZRJG5764-52-11C30:05:5 91.2.840.803223.1.72.3.15|1.2.840.1143 50.1.13.104.2.7.2.727879_[id number] [facility]
[2023-08-13 18:56] LABS: Absolute Lymphocytes (CBC) 0.7 K/uL (0.7-4.9); Lymphocytes % 11.7 % (15.3-44.8); MCV 86.2 fL (80-100); MPV 6.3 fL (7.6-11.3); Platelets 464 thou/uL (152-406); RBC Red Blood Cell Count 4.18 M/uL (3.86-4.86)
[2023-08-13 19:15] LABS: Protime INR 1.07
[2023-08-13 19:21] LABS: Albumin 3.5 g/dL (3.4-5.0); Bilirubin Direct 0.1 mg/dL (0-0.2); Bilirubin Indirect, Calculated 0.3 mg/dL (0.2-0.8); Bilirubin Total 0.4 mg/dL (0.2-1.0); Magnesium 2.2 mg/dL (1.6-2.4); Potassium 3.9 mEq/L (3.5-5.1); Protein, Total 7.3 g/dL (6.4-8.2)
[2023-08-13 19:40] LABS: Specific Gravity < 1.005 (1.005-1.030); Urine Bacteria None Seen /HPF (<20); Urine Bilirubin NEGATIVE (Negative); Urine Blood Negative (Negative); Urine Clarity Turbid (Clear); Urine Color Colorless (Yellow); Urine Glucose NEGATIVE (Negative); Urine Protein NEGATIVE (Negative); Urine RBC None Seen /HPF (None Seen); Urine Urobilinogen Normal (Normal)
[2023-08-13 19:51] LABS: Barbiturates NEGATIVE (NEGATIVE); Benzodiazepines NEGATIVE (NEGATIVE); Cocaine POSITIVE (NEGATIVE); METHAMPHETAM NEGATIVE (NEGATIVE); Methadone NEGATIVE (NEGATIVE); Opiates NEGATIVE (NEGATIVE); Phencyclidine NEGATIVE (NEGATIVE); THC Cannibis POSITIVE (NEGATIVE)
--- NOTE | 2023-08-13 20:31 | RAD REPORT ---
EXAM DESCRIPTION: Leno Single View08/13/2023 7:42 pm CLINICAL HISTORY: Chest pain COMPARISON: July 27, 2023 FINDINGS: The lungs appear clear of acute infiltrate. The heart is normal size IMPRESSION: No acute abnormalities displayed
--- NOTE | 2023-08-14 00:01 | ER ---
Nurse's Notes [facility] Name: Heather Coon Age: 53 yrs Sex: Female : 1970 Arrival Date: 08/13/2023 Time: 17:54 Bed 20 Private MD: Diagnosis: Chest pain, unspecified;Tachycardia, unspecified;Cocaine abuse with cocaine-induced anxiety disorder Presentation: 08/13 17:58 Chief complaint: EMS states: Pt started having chest pain today at 1700. Coronavirus rs5 screen: At this time, the client does not indicate any symptoms associated with coronavirus-19. Ebola Screen: No symptoms or risks identified at this time. Initial Sepsis Screen: Does the patient meet any 2 criteria? HR > 90 bpm. Yes Does the patient have a suspected source of infection? No. Patient's initial sepsis screen is negative. Risk Assessment: Do you want to hurt yourself or someone else? Patient reports no desire to harm self or others. Onset of symptoms was August 13, 2022. 17:58 Method Of Arrival: EMS: [facility] rs5 17:58 Acuity: ANDER 3 rs5 17:58 Care prior to arrival: Medication(s) given: ASA, 325 mg, x 1, Nitroglycerin, 0.4 mg SL rs5 x 2. 17:58 Care prior to arrival: IV initiated. 20 GA, in the right forearm. rs5 Historical: - Allergies: 18:00 fluoxetine; rs5 18:00 Green Tea; rs5 18:00 Keppra; not an allergy; rs5 - PMHx: 18:00 Anxiety; Bipolar disorder; Cancer-Cervical; Chronic obstructive lung disease; Chronic rs5 pain; Congestive heart failure; Depression; Diverticulitis; Herniated Back Disc; Hypertension; intestinal mass; Myocardial infarction; pt reports hx of seizures; Spastic Muscles; stroke; Arthritis; - PSHx: 18:00 back surgery (al); cervical fusion; Cholecystectomy; foot; Tonsillectomy; rs5 - Immunization history:: Adult Immunizations up to date. - Social history:: Smoking status: Patient denies any tobacco usage or history of. Screenin:00 [facility] ED Fall Risk Assessment (Adult) History of falling in the last 3 months, rs5 including since admission No falls in past 3 months (0 pts) Confusion or Disorientation No (0 pts) Intoxicated or Sedated No (0 pts) Impaired Gait No (0 pts) Mobility Assist Device Used Yes (1 pt) Altered Elimination Score/Fall Risk Level 0 - 2 = Low Risk Oriented to surroundings, Maintained a safe environment, Educated pt \T\ family on fall prevention, incl call for assistance when getting out of bed. Abuse screen: Denies threats or abuse. Nutritional screening: No deficits noted. Tuberculosis screening: No symptoms or risk factors identified. Assessment: 18:00 General: Appears in no apparent distress. uncomfortable, Behavior is cooperative. Pain: rs5 Complains of pain in chest Pain radiates to left arm Pain currently is 8 out of 10 on a pain scale. Quality of pain is described as aching, crushing, Pain began 1 hour ago. Is continuous. Neuro: Level of Consciousness is awake, alert, obeys commands, Oriented to person, place, time, situation. Cardiovascular: Heart tones S1 S2 present Capillary refill < 3 seconds in bilateral fingers toes Patient's skin is warm and dry. Rhythm is sinus tachycardia. Respiratory: Airway is patent Respiratory effort is even, unlabored, Respiratory pattern is regular, symmetrical, Breath sounds are clear bilaterally. GI: Abdomen is round non-distended, Bowel sounds present X 4 quads. Abd is soft and non tender X 4 quads. Reports nausea. 18:00 : No signs and/or symptoms were reported regarding the genitourinary system. EENT: No rs5 signs and/or symptoms were reported regarding the EENT system. Derm: Skin is intact, Skin is pink, warm \T\ dry. Musculoskeletal: Range of motion: intact in all extremities. Vital Signs: 17:58 BP 135 / 85; Pulse 112; Resp 18; Temp 98.4(O); Pulse Ox 99% on R/A; rs5 ED Course: 17:58 Patient arrived in ED. rs5 18:00 Patient has correct armband on for positive identification. Placed in gown. Bed in low rs5 position. Call light in reach. Side rails up X2. 18:02 Derrick Castillo PA is PHCP. cp 18:02 Jones Parham MD is Attending Physician. cp 18:17 Triage completed. rs5 18:41 Ron Chavez RN is Primary Nurse. rs5 19:27 No provider procedures requiring assistance completed. rs5 19:44 XRAY Chest (1 view) In Process Unspecified. EDMS 08/14 01:01 IV discontinued, intact, bleeding controlled, No redness/swelling at site. Pressure jb4 dressing applied. Administered Medications: 08/13 19:10 Drug: morphine IVP or IV 4 mg IVP once over 4 mins Route: IVP; Infused Over: 4 mins; rs5 Site: right forearm; 19:10 Drug: Ondansetron IVP 4 mg IVP once; over 2 minutes Route: IVP; Site: right forearm; rs5 20:06 Drug: Ativan IVP 1 mg IVP once Route: IVP; Site: right forearm; la4 20:06 Drug: Furosemide IVP 20 mg IVP once; give over 2 minutes Route: IVP; Site: right la4 forearm; 21:58 Drug: morphine IVP or IV 4 mg IVP once over 4 mins Route: IVP; Infused Over: 4 mins; la4 Site: right forearm; Medication: 19:27 VIS not applicable for this client. rs5 Outcome: 08/14 00:00 Discharge ordered by . fernando 01:01 Discharged to home via wheelchair, kristina 01:01 Condition: stable 01:01 Discharge instructions given to patient, Instructed on discharge instructions, follow up and referral plans. Demonstrated understanding of instructions, follow-up care, 01:02 Patient left the ED. jb4 Signatures: Dispatcher [employer] EDNM Derrick Castillo PA PA cp Bryson, James, RN RN jb4 Ron Chavez RN RN rs5 Amy Choudhury RN RN la4
--- NOTE | 2023-08-14 00:01 | EDPHYS ---
Physician Documentation [facility] Name: Heather Coon Age: 53 yrs Sex: Female : 1970 Arrival Date: 08/13/2023 Time: 17:54 Bed 20 Private MD: ED Physician Jones Parham HPI: 08/13 18:35 This 53 yrs old Female presents to ER via EMS with complaints of Chest Pain. cp 18:35 The patient or guardian reports chest pain that is located primarily in the anterior cp chest wall. Onset: today, about 1700. The pain does not radiate. The chest pain is described as sharp. Duration: The patient or guardian reports a single episode, that is still ongoing, and unchanged. Patient is a 53-year-old female with past medical history significant for COPD, chronic pain, bipolar disorder who presents to the emergency department by EMS for reported chest pain. Patient reports she was observing her son's fighting and she became upset and started having chest pain and shortness of breath. Historical: - Allergies: 18:00 fluoxetine; rs5 18:00 Green Tea; rs5 18:00 Keppra; not an allergy; rs5 - PMHx: 18:00 Anxiety; Bipolar disorder; Cancer-Cervical; Chronic obstructive lung disease; Chronic rs5 pain; Congestive heart failure; Depression; Diverticulitis; Herniated Back Disc; Hypertension; intestinal mass; Myocardial infarction; pt reports hx of seizures; Spastic Muscles; stroke; Arthritis; - PSHx: 18:00 back surgery (al); cervical fusion; Cholecystectomy; foot; Tonsillectomy; rs5 - Immunization history:: Adult Immunizations up to date. - Social history:: Smoking status: Patient denies any tobacco usage or history of. ROS: 18:40 Constitutional: Negative for body aches, chills, fever, poor PO intake, cp 18:40 Eyes: Negative for injury, pain, redness, and discharge, cp 18:40 Neck: Negative for pain with movement, pain at rest, stiffness, 18:40 Cardiovascular: Positive for chest pain, 18:40 Respiratory: Positive for shortness of breath, at rest. 18:40 Abdomen/GI: Negative for abdominal pain, vomiting, diarrhea, constipation, 18:40 Neuro: Negative for altered mental status, dizziness, headache, syncope, weakness, 18:40 All other systems are negative, Exam: 18:18 ECG was reviewed by the Attending Physician. 18:45 Constitutional: The patient appears in no acute distress, alert, awake, cp non-diaphoretic, non-toxic, well developed, well nourished, anxious, tearful 18:45 Head/Face: Normocephalic, atraumatic. cp 18:45 Eyes: Periorbital structures: appear normal, Conjunctiva: normal, no exudate, no cp injection, Sclera: no appreciated abnormality, Lids and lashes: appear normal, bilaterally, 18:45 ENT: External ear(s): are unremarkable, Nose: is normal, Mouth: Lips: moist, Oral cp mucosa: pink and intact, moist, Posterior pharynx: Airway: no evidence of obstruction, patent, 18:45 Neck: ROM/movement: is normal, is supple, without pain, no range of motions limitations, no nuchal rigidity, 18:45 Chest/axilla: Inspection: normal, 18:45 Cardiovascular: Rate: tachycardic, Rhythm: regular, Edema: ankle edema, that is very mild, JVD: is not appreciated, 18:45 Respiratory: the patient does not display signs of respiratory distress, Respirations: normal, no use of accessory muscles, no retractions, labored breathing, is not present, Breath sounds: decreased breath sounds, that are mild, throughout, stridor, is not appreciated, wheezing: is not appreciated, 18:45 Abdomen/GI: Inspection: abdomen appears normal, Palpation: abdomen is soft and non-tender, in all quadrants, 18:45 Back: pain, is absent, ROM is normal, 18:45 Neuro: Orientation: to person, place \T\ time. Mentation: is normal, Motor: moves all fours, strength is normal, Sensation: is normal, Vital Signs: 17:58 BP 135 / 85; Pulse 112; Resp 18; Temp 98.4(O); Pulse Ox 99% on R/A; rs5 MDM: 18:02 Patient medically screened. 08/14 00:00 Data reviewed: vital signs, nurses notes, lab test result(s), EKG, radiologic studies, cp plain films. 00:00 I considered the following discharge prescriptions or medication management in the emergency department Medications were administered in the Emergency Department. See MAR. Independent interpretation of the following test(s) in the Emergency Department EKG: See my EKG interpretation above. Care significantly affected by the following chronic conditions: Congestive Heart Failure, Chronic Obstructive Pulmonary Disease, Obesity. Counseling: I had a detailed discussion with the patient and/or guardian regarding the historical points, exam findings, and any diagnostic results supporting the discharge/admit diagnosis, lab results, radiology results, the need for outpatient follow up, a family practitioner. Response to treatment: the patient's symptoms have markedly improved after treatment, and as a result, I will discharge patient. Special discussion: Based on the patient's history, exam, and Dx evaluation, there is no indication for emergent intervention or inpatient Tx. It is understood by the patient/guardian that if the Sx's persist or worsen they need to return immediately for re-evaluation. 08/13 18:31 Order name: Basic Metabolic Panel; Complete Time: 19:47 cp 08/13 19:47 Interpretation: Normal except: CL 108; CA 8.4. cp 08/13 18:31 Order name: CBC with Diff; Complete Time: 19:47 cp 08/13 19:47 Interpretation: Normal except: HGB 11.9; PLT 464; RDW 17.0; MPV 6.3; BERNARDINO% 83.6; LYM% cp 11.7. 08/13 18:31 Order name: LFT's; Complete Time: 19:47 cp 08/13 19:47 Interpretation: Normal except: AST 10; GLOB 3.8; A/G 0.9. cp 08/13 18:31 Order name: Magnesium; Complete Time: 19:47 cp 08/13 18:31 Order name: NT PRO-BNP; Complete Time: 19:47 cp 08/13 19:48 Interpretation: Abnormal: NT PRO-BNP 5015. cp 08/13 18:31 Order name: PT-INR; Complete Time: 19:47 cp 08/13 18:31 Order name: Troponin HS; Complete Time: 19:47 cp 08/13 18:31 Order name: Urinalysis W/Microscopic; Complete Time: 19:47 cp 08/13 23:59 Interpretation: Normal except: UCLA Turbid; Urine SG < 1.005. cp 08/13 18:31 Order name: UDS; Complete Time: 19:59 cp 08/13 19:59 Interpretation: Normal except: [place] POSITIVE; THC POSITIVE. cp 08/13 22:08 Order name: Troponin HS; Complete Time: 23:55 cp 08/13 18:31 Order name: XRAY Chest (1 view); Complete Time: 21:40 cp 08/13 18:31 Order name: EKG; Complete Time: 18:32 cp 08/13 18:31 Order name: Cardiac monitoring; Complete Time: 19:24 cp 08/13 18:31 Order name: EKG - Nurse/Tech; Complete Time: 19:31 cp 08/13 18:31 Order name: IV Saline Lock; Complete Time: 19:24 cp 08/13 18:31 Order name: Labs collected and sent; Complete Time: 19:24 cp 08/13 18:31 Order name: O2 Per Protocol; Complete Time: :25 cp 08/13 18:31 Order name: O2 Sat Monitoring; Complete Time: 19:25 cp 08/13 22:08 Order name: EKG - Nurse/Tech; Complete Time: 00:46 cp EC/25 18:18 Rate is 115 beats/min. Rhythm is regular. [place] interval is normal. QRS interval is cp normal. QT interval is normal. T waves are Inverted in lead aVR. Interpreted by me. Reviewed by me. Administered Medications: 19:10 Drug: morphine IVP or IV 4 mg IVP once over 4 mins Route: IVP; Infused Over: 4 mins; rs5 Site: right forearm; 19:10 Drug: Ondansetron IVP 4 mg IVP once; over 2 minutes Route: IVP; Site: right forearm; rs5 20:06 Drug: Ativan IVP 1 mg IVP once Route: IVP; Site: right forearm; la4 20:06 Drug: Furosemide IVP 20 mg IVP once; give over 2 minutes Route: IVP; Site: right la4 forearm; 21:58 Drug: morphine IVP or IV 4 mg IVP once over 4 mins Route: IVP; Infused Over: 4 mins; la4 Site: right forearm; Disposition Summary: 08/14/23 00:00 Discharge Ordered Notes: Location: Home cp Problem: new cp Symptoms: have improved cp Condition: Stable cp Diagnosis - Chest pain, unspecified cp - Tachycardia, unspecified cp - Cocaine abuse with cocaine-induced anxiety disorder cp Followup: cp - With: Private Physician - When: 1 - 2 days - Reason: Recheck today's complaints Discharge Instructions: - Discharge Summary Sheet cp - Nonspecific Chest Pain, Adult cp - Cocaine Use Disorder cp - Aspirin and Your Heart cp - Managing Anxiety, Adult cp Forms: - Medication Reconciliation Form cp - Thank You Letter cp - Antibiotic Education cp - Prescription Opioid Use cp - Patient Portal Instructions cp - Leadership Thank You Letter cp Addendum: 08/16/2023 18:57 Co-signature as Attending Physician, Jones Parham MD I reviewed the patient's care r n provided by the Advanced Practice Provider and agree with the diagnosis and treatment plan. Signatures: Dispatcher [employer] EDMS Jones Parham MD MD rn Page, Corey, PA PA cp Ron Chavez RN RN rs5 Amy Choudhury RN RN la4 Corrections: (The following items were deleted from the chart) 08/14 00:07 00:00 Cocaine abuse cp cp
[2023-08-14 02:35] VITALS: BP 135/85; TEMP 98.4; O2SAT 99
--- NOTE | 2023-08-20 13:56 | EKG ---
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
== END ==
LOC: ER 17:54
DX: R07.9 Chest pain, unspecified (principal); R00.0 Tachycardia, unspecified; F14.180 Cocaine abuse with cocaine-induced anxiety disorder; I11.0 Hypertensive heart disease with heart failure; I50.9 Heart failure, unspecified; J44.9 Chronic obstructive pulmonary disease, unspecified; F31.9 Bipolar disorder, unspecified; I25.2 Old myocardial infarction; Z86.73 Personal history of transient ischemic attack (TIA), and cerebral infarction without residual deficits; Z88.8 Allergy status to other drugs, medicaments and biological substances; Z91.09 Other allergy status, other than to drugs and biological substances
CPT/HCPCS: 36415; 71045; 80048; 80076; 80307; 81001; 83735; 83880; 84484; 85025; 85610; 93005; 96374; 96375; 99284; J1940

== ENCOUNTER 2023-08-31 08:40 | Inpatient (IN) | payer OTHER, SELFPAY ==
[2023-08-31] MEDS ORDERED: METHYLPREDNISOLONE 125 MG INJ ONE (09:20)
[2023-08-31 09:27] LABS: Absolute Lymphocytes (CBC) 1.3 K/uL (0.7-4.9); Hematocrit 33.9 % (36.0-45.0); Lymphocytes % 25.6 % (15.3-44.8); MCV 84.1 fL (80-100); MPV 6.7 fL (7.6-11.3); Platelets 416 thou/uL (152-406); RBC Red Blood Cell Count 4.03 M/uL (3.86-4.86)
[2023-08-31 09:51] LABS: SARS-CoV-2 Antigen Rapid Res Negative (Negative)
--- NOTE | 2023-08-31 10:11 | RAD REPORT ---
EXAM DESCRIPTION: CT - Head Brain Wo Cont - 08/31/2023 9:22 am CLINICAL HISTORY: Weakness;Numbness COMPARISON: Head Brain Wo Cont dated 08/11/2023; Head Brain Wo Cont dated 07/27/2023 TECHNIQUE: Noncontrast head CT images were obtained without IV contrast. Multiplanar reformats were generated and reviewed. All CT scans are performed using dose optimization technique as appropriate and may include automated exposure control or mA/KV adjustment according to patient size. FINDINGS: No intracranial hemorrhage, mass, or edema. Midline structures are unremarkable. Normal ventricular caliber for age. Morton-white matter differentiation is preserved, without evidence of acute infarct. No abnormal extra- axial fluid collections. Moderate mucosal thickening most pronounced along the left maxillary sinus. Visualized portions of th e mastoid air cells are clear. No acute bony findings. IMPRESSION: No evidence of an acute intracranial process.
--- NOTE | 2023-08-31 10:13 | RAD REPORT ---
EXAM DESCRIPTION: RADChest Single View08/31/2023 9:36 am CLINICAL HISTORY: Chest pain;COPD;Cough COMPARISON: Chest Single View dated 08/13/2023; Chest Single View dated 07/27/2023; Chest Single View d ated 06/21/2023; Chest Single View dated 05/15/2023 TECHNIQUE: Portable AP view of the chest. FINDINGS: The lungs are clear. No pneumothorax or effusion. The cardiomediastinal contours are unre markable. IMPRESSION: No acute cardiopulmonary process.
[2023-08-31 10:25] LABS: Protime INR 1.19
[2023-08-31] MEDS ORDERED: IPRATROPIUM BROM 0.5MG/2.5ML ONE (10:31)
[2023-08-31] MEDS ORDERED: ALBUTEROL 2.5 MG/3 ML NEB SOL ONE (10:31)
[2023-08-31] MEDS ORDERED: OSELTAMIVIR 75 MG CAP PO ONE (10:32)
[2023-08-31] MEDS ORDERED: KETOROLAC 30 MG/ML INJ ONE (10:37)
[2023-08-31] MEDS ORDERED: ONDANSETRON 4 MG/2 ML VIAL ONE (10:37)
[2023-08-31 10:43] LABS: Albumin 3.4 g/dL (3.4-5.0); Bilirubin Direct 0.2 mg/dL (0-0.2); Bilirubin Indirect, Calculated 0.2 mg/dL (0.2-0.8); Bilirubin Total 0.4 mg/dL (0.2-1.0); Potassium 3.4 mEq/L (3.5-5.1); Protein, Total 7.6 g/dL (6.4-8.2); Troponin High Sensitivity 38.7 pg/mL (<58.9)
[2023-08-31] MEDS ORDERED: NA CHLORIDE 0.9% 500 ML ONE (11:11)
--- NOTE | 2023-08-31 12:34 | EDPHYS ---
Physician Documentation [facility] Name: Heather Coon Age: 53 yrs Sex: Female : 1970 Arrival Date: 08/31/2023 Time: 08:40 Bed 5 Private MD: ED Physician Norbert Fisher HPI: 08/31 08:51 This 53 yrs old Female presents to ER via Unassigned with complaints of chest pain, sb4 shortness of breath. 09:28 patient with hitory of COPD on home O2, CHF, CAD reports cough, sob, and chest pain for sb4 2 days now. she has not had all of her medications due to insurance reasons. states that her chest feels like someone is sitting on it, similar to her prior [place]. also reports feeling very fatigued with episodes of cold sweats. 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/A - Post-menopause, Not tl4 Historical: - Allergies: 08:53 fluoxetine; ph 08:53 Green Tea; ph 08:53 Keppra; not an allergy; ph - Home Meds: 08:53 Depakote Oral [Active]; Folic Acid Oral [Active]; Folic Acid Oral [Active]; Keppra Oral ph [Active]; Lasix Oral [Active]; lisinopril Oral [Active]; Metoprolol Tartrate Oral [Active]; - PMHx: 08:53 Anxiety; Arthritis; Bipolar disorder; Cancer-Cervical; Chronic obstructive lung ph disease; Chronic pain; Congestive heart failure; Depression; Diverticulitis; Herniated Back Disc; Hypertension; intestinal mass; Myocardial infarction; pt reports hx of seizures; Spastic Muscles; stroke; - PSHx: 08:53 back surgery; cervical fusion; Cholecystectomy; foot; Tonsillectomy; ph - Immunization history:: Adult Immunizations unknown. - Social history:: Smoking status: Patient reports the use of cigarette tobacco products, smokes one pack cigarettes per day. ROS: 09:28 Abdomen/GI: Negative for abdominal pain, nausea, vomiting, diarrhea, and constipation, sb4 09:28 Constitutional: Positive for chills, fatigue, fever, malaise, 09:28 Cardiovascular: Positive for chest pain, 09:28 Respiratory: Positive for cough, dyspnea on exertion, shortness of breath, wheezing, 09:28 All other systems are negative, Exam: 09:28 Head/Face: Normocephalic, atraumatic. Eyes: Extra-ocular motions intact. Periorbital sb4 areas with no swelling, redness, or edema. ENT: Mucous membranes moist. Cardiovascular: Regular rate and rhythm with a normal S1 and S2. Abdomen/GI: Soft, non-tender, no distension. Skin: Warm, dry with normal turgor. Normal color with no rashes, no lesions, and no evidence of cellulitis. MS/ Extremity: Pulses equal, no cyanosis. Neurovascular intact. Full, normal range of motion. Neuro: Awake and alert, GCS 15, oriented to person, place, time, and situation. Motor strength 5/5 in all extremities. Sensory grossly intact. 09:28 Constitutional: The patient appears alert, awake, obese, 09:28 Respiratory: the patient does not display signs of respiratory distress, Respirations: tachypnea, that is mild, Breath sounds: rales, are scattered, wheezing: expiratory is scattered, Vital Signs: 09:06 BP 134 / 90; Pulse 110; Resp 24; Temp 97.4; Pulse Ox 97% on 2 lpm NC; Weight 86.18 kg; ph Height 5 ft. 2 in. ; 10:21 BP 132 / 89; Pulse 110; Resp 20; Pulse Ox 100% on 2 lpm NC; ph 13:14 BP 148 / 89; Pulse 116; Resp 20; Pulse Ox 96% on R/A; Pain 10/10; tl4 14:19 BP 140 / 96; Pulse 108; Resp 20; Pulse Ox 93% on R/A; Pain 4/10; tl4 09:06 Body Mass Index 34.75 (86.18 kg, 157.48 cm) ph 13:14 Pain Scale: Adult tl4 14:19 Pain Scale: Adult tl4 MDM: 08:49 Patient medically screened. sb4 09:31 Differential diagnosis: Bronchitis CHF exacerbation, Chronic Obstructive Pulmonary sb4 Disease Myocardial Infarction pneumonia, pulmonary edema. 12:32 Data reviewed: vital signs, nurses notes, EMS record, lab test result(s), EKG, sb4 radiologic studies, and as a result, I will admit patient. Consideration of Admission/Observation Patient was admitted/placed on observation. Management of patient was discussed with the following: Hospitalist: RUBY Sawyer. Care significantly affected by the following chronic conditions: Hypertension, Congestive Heart Failure, Chronic Obstructive Pulmonary Disease, Obesity. Counseling: I had a detailed discussion with the patient and/or guardian regarding the historical points, exam findings, and any diagnostic results supporting the discharge/admit diagnosis, lab results, radiology results, the need for further work-up and treatment in the hospital. 08/31 08:50 Order name: BMP; Complete Time: 10:44 [place] 08/31 08:50 Order name: CBC with Diff; Complete Time: 09:28 sb4 08/31 08:50 Order name: Hepatic Function; Complete Time: 10:44 4 08/31 08:50 Order name: Magnesium; Complete Time: 10:44 4 08/31 08:50 Order name: NT PRO-BNP; Complete Time: 10:44 4 08/31 08:50 Order name: PT-INR; Complete Time: 10:30 [place] 08/31 08:50 Order name: Ptt, Activated; Complete Time: 10:30 [place] 08/31 08:50 Order name: Troponin HS; Complete Time: 10:44 [place] 08/31 08:50 Order name: SARS RAPID; Complete Time: 09:53 [place] 08/31 08:50 Order name: Flu; Complete Time: 09:54 [facility] 08/31 09:19 Order name: Blood Culture Adult (2) [facility] [place] 08/31 09:19 Order name: Lactate w/ 2H reflex if indic.; Complete Time: 10:42 [place] [place] 08/31 11:46 Order name: Troponin High Sensitivity; Complete Time: 12:27 [place] 08/31 13:54 Order name: Basic Metabolic Panel [facility] 08/31 13:54 Order name: Basic Metabolic Panel [facility] 08/31 13:54 Order name: Basic Metabolic Panel [facility] 08/31 13:54 Order name: Basic Metabolic Panel [facility] 08/31 13:54 Order name: Basic Metabolic Panel [facility] 08/31 13:54 Order name: Basic Metabolic Panel [facility] 08/31 13:54 Order name: Basic Metabolic Panel [facility] 08/31 13:54 Order name: Basic Metabolic Panel [facility] 08/31 13:54 Order name: Hemoglobin A1c [facility] 08/31 13:54 Order name: Hemoglobin A1c [facility] 08/31 13:54 Order name: Magnesium EDMS 08/31 13:54 Order name: Magnesium EDMS 08/31 13:54 Order name: Magnesium EDMS 08/31 13:54 Order name: Magnesium EDMS 08/31 13:54 Order name: Magnesium EDMS 08/31 13:54 Order name: Magnesium EDMS 08/31 13:54 Order name: Magnesium EDMS 08/31 13:54 Order name: Magnesium EDMS 08/31 13:54 Order name: Phosphorus EDMS 08/31 13:54 Order name: Phosphorus EDMS 08/31 13:54 Order name: Phosphorus EDMS 08/31 13:54 Order name: Phosphorus EDMS 08/31 13:54 Order name: Phosphorus EDMS 08/31 13:54 Order name: Phosphorus EDMS 08/31 13:54 Order name: CBC with Automated Diff EDMS 08/31 13:54 Order name: CBC with Automated Diff EDMS 08/31 13:54 Order name: CBC with Automated Diff [facility] 08/31 13:54 Order name: CBC with Automated Diff [facility] 08/31 13:54 Order name: CBC with Automated Diff [facility] 08/31 13:54 Order name: CBC with Automated Diff [facility] 08/31 13:54 Order name: CBC with Automated Diff [facility] 08/31 13:54 Order name: CBC with Automated Diff EDMS 08/31 13:54 Order name: Urinalysis w/ reflexes EDMS 08/31 13:55 Order name: Phosphorus EDMS 08/31 13:55 Order name: Phosphorus EDMS 08/31 13:55 Order name: Troponin High Sensitivity ED[facility] 08/31 13:55 Order name: Troponin High Sensitivity [facility] 08/31 13:55 Order name: Troponin High Sensitivity [facility] 08/31 13:55 Order name: Vitamin D, 25 (OH), TOTAL EDMS 08/31 13:55 Order name: Vitamin D, 25 (OH), TOTAL EDMS 08/31 08:50 Order name: XRAY CXR (1 view); Complete Time: 10:15 sb4 08/31 08:51 Order name: Head Brain Wo Cont CT; Complete Time: 10:13 sb4 08/31 08:50 Order name: EKG; Complete Time: 08:51 sb4 08/31 13:54 Order name: CONS Physician Consult EDMS 08/31 13:54 Order name: Physical Therapy Consult EDMS 08/31 08:50 Order name: Cardiac monitoring; Complete Time: 09:20 sb4 08/31 08:50 Order name: EKG - Nurse/Tech; Complete Time: :20 sb4 08/31 08:50 Order name: IV Saline Lock; Complete Time: 09:20 sb4 08/31 08:50 Order name: Labs collected and sent; Complete Time: 09:20 sb4 08/31 08:50 Order name: O2 Per Protocol; Complete Time: :12 sb4 08/31 08:50 Order name: O2 Sat Monitoring; Complete Time: :12 sb4 08/31 09:54 Order name: Labs - recollect needed: recollect green top please, sample too small; em1 Complete Time: :08/31 11:09 Order name: Misc. Order: repeat trop at 1200; Complete Time: 12:02 sb4 EC:07 Rate is 108 beats/min. Rhythm is regular, Sinus tachycardia. MS interval is normal at sb4 146 msec. QRS interval is normal at 90 msec. QT interval is normal at [address] changes noted. Clinical impression: Abnormal EKG without significant change. Interpreted by me. Reviewed by me. Administered Medications: 10:21 Drug: MethylPrednisoLONE IVP 125 mg IVP once Route: IVP; Site: right wrist; ph 14:42 Follow up: Response: No adverse reaction tl4 10:51 Drug: Ketorolac IVP 15 mg IVP once Route: IVP; Site: left antecubital; ph 13:07 Follow up: Response: No adverse reaction tl4 10:52 Drug: DuoNeb Nebulize (3:1) (2.5 mg - 0.5 mg) 3 ml Nebulizer once Route: Nebulizer; ph 13:07 Follow up: Response: No adverse reaction tl4 10:52 Drug: Oseltamivir PO 75 mg PO once Route: PO; ph 13:07 Follow up: Response: No adverse reaction tl4 10:52 Drug: Ondansetron IVP 4 mg IVP once; over 2 minutes Route: IVP; Site: left antecubital; ph 13:07 Follow up: Response: No adverse reaction tl4 11:24 Drug: NS 0.9% IV 500 ml IV at bolus once Route: IV; Rate: bolus; Site: left antecubital;ph 13:06 Follow up: Response: No adverse reaction; IV Status: Completed infusion; IV Intake: tl4 500ml 13:35 Drug: morphine IVP or IV 4 mg IVP once over 4 mins Route: IVP; Infused Over: 4 mins; tl4 Site: right forearm; 14:25 Follow up: Response: Pain is decreased tl4 13:35 Drug: Promethazine IVP 12.5 mg IVP once Route: IVP; Site: right forearm; tl4 14:25 Follow up: Response: Nausea is decreased tl4 Disposition: 16:57 I was immediately available on-site in the Emergency Department for consultation in the ms3 care of the patient. Disposition Summary: 08/31/23 12:33 Hospitalization Ordered Notes: Hospitalization Status: Inpatient Admission sb4 Provider: John Salinas Location: Telemetry/[facility] (Inpatient) sb4 Condition: Fair sb4 Problem: new sb4 Symptoms: are unchanged sb4 Bed/Room Type: Standard sb4 Room Assignment: 205(08/31/23 14:06) em1 Diagnosis - Influenza due to identified novel influenza A virus with other respiratory sb4 manifestations - COPD/ Chronic obstructive pulmonary disease with (acute) exacerbation sb4 - Chest pain, unspecified sb4 Discharge Instructions: - Discharge Summary Sheet sb4 - Chronic Obstructive Pulmonary Disease Exacerbation sb4 - Influenza, Adult, [id number] sb4 Forms: - Medication Reconciliation Form sb4 - SBAR form sb4 - Leadership Thank You Letter sb4 Prescriptions: - Prednisone 20 mg Oral Tablet - take 1 tablet ORAL route every 12 hours for 5 days; 10 tablet; Refills: 0, sb4 Product Selection Permitted - Tamiflu 75 mg Oral capsule - take 1 tablet ORAL route every 12 hours for 5 days; 10 tablet; Refills: 0, sb4 Product Selection Permitted Signatures: Dispatcher [employer] [place] em1 Evonne Lord RN RN ph Norbert Fisher DO DO ms3 Mariola Mahmood PA-C PA-C sb4 Benoit Blancas RN RN tl4 Corrections: (The following items were deleted from the chart) 09:31 09:28 patient with hitory of COPD on home O2, CHF, CAD reports cough, sob, and chest sb4 pain for 2 days now. she has not had all of her medications due to insurance reasons. states that her chest feels like someone is sitting on it, similar to her prior [place]. also reports feeling very fatigued with episodes of cold sweats. sb4 14:06 12:33 sb4 em1
--- NOTE | 2023-08-31 12:34 | ER ---
Nurse's Notes [facility] Name: Heather Coon Age: 53 yrs Sex: Female : 1970 Arrival Date: 08/31/2023 Time: 08:40 Bed 5 Private MD: Diagnosis: Influenza due to identified novel influenza A virus with other respiratory manifestations;COPD/ Chronic obstructive pulmonary disease with (acute) exacerbation;Chest pain, unspecified Presentation: 08/31 09:06 Chief complaint: EMS states: Chest pain and difficulty breathing, hx of COPD and CHF, ph VSS, A\T\A given x 1. Coronavirus screen: Vaccine status: Patient reports receiving the 2nd dose of the covid vaccine. Ebola Screen: No symptoms or risks identified at this time. Initial Sepsis Screen: Does the patient meet any 2 criteria? No. Patient's initial sepsis screen is negative. Does the patient have a suspected source of infection? No. Patient's initial sepsis screen is negative. Risk Assessment: Do you want to hurt yourself or someone else? Patient reports no desire to harm self or others. Onset of symptoms was August 31, 2023. 09:06 Method Of Arrival: EMS: [facility] ph 09:06 Acuity: ANDER 2 ph Triage Assessment: 09:08 General: Appears in no apparent distress. uncomfortable, Behavior is cooperative, ph appropriate for age, anxious. Pain: Complains of pain in anterior aspect of left upper chest. Neuro: Level of Consciousness is awake, alert, obeys commands, Oriented to person, place, time, situation. Cardiovascular: Capillary refill < 3 seconds in bilateral fingers Patient's skin is warm and dry. Respiratory: Airway is patent Respiratory effort is even, unlabored, Respiratory pattern is regular, symmetrical. GI: Reports nausea. Derm: Skin is pink, warm \T\ dry. 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 - Post-menopause, Not tl4 Historical: - Allergies: 08:53 fluoxetine; ph 08:53 Green Tea; ph 08:53 Keppra; not an allergy; ph - Home Meds: 08:53 Depakote Oral [Active]; Folic Acid Oral [Active]; Folic Acid Oral [Active]; Keppra Oral ph [Active]; Lasix Oral [Active]; lisinopril Oral [Active]; Metoprolol Tartrate Oral [Active]; - PMHx: 08:53 Anxiety; Arthritis; Bipolar disorder; Cancer-Cervical; Chronic obstructive lung ph disease; Chronic pain; Congestive heart failure; Depression; Diverticulitis; Herniated Back Disc; Hypertension; intestinal mass; Myocardial infarction; pt reports hx of seizures; Spastic Muscles; stroke; - PSHx: 08:53 back surgery; cervical fusion; Cholecystectomy; foot; Tonsillectomy; ph - Immunization history:: Adult Immunizations unknown. - Social history:: Smoking status: Patient reports the use of cigarette tobacco products, smokes one pack cigarettes per day. Screenin:11 [facility] ED Fall Risk Assessment (Adult) History of falling in the last 3 months, ph including since admission No falls in past 3 months (0 pts) Score/Fall Risk Level 0 - 2 = Low Risk Oriented to surroundings, Maintained a safe environment, Provided non-skid footwear, Hourly rounding (assess needs \T\ fall precautionary measures) done. Abuse screen: Denies threats or abuse. Denies injuries from another. Nutritional screening: No deficits noted. Tuberculosis screening: No symptoms or risk factors identified. Assessment: 10:22 General: Appears in no apparent distress. uncomfortable, Behavior is calm, cooperative. ph Pain: Complains of pain in chest. Neuro: Level of Consciousness is awake, alert, obeys commands, Oriented to person, place, time, situation. Cardiovascular: Capillary refill < 3 seconds in bilateral fingers Patient's skin is warm and dry. Respiratory: Airway is patent Respiratory effort is even, unlabored. GI: Reports nausea. Derm: Skin is pink, warm \T\ dry. Musculoskeletal: Range of motion: intact in all extremities. 13:12 Reassessment: Patient and/or family updated on plan of care and expected duration. Pain tl4 level reassessed. Patient is alert, oriented x 3, equal unlabored respirations, skin warm/dry/pink. Pt requesting pain and nausea medication. Pt c/o generalized body aches. 14:38 Reassessment: Attempt to call report. Will call back. tl4 Vital Signs: 09:06 BP 134 / 90; Pulse 110; Resp 24; Temp 97.4; Pulse Ox 97% on 2 lpm NC; Weight 86.18 kg; ph Height 5 ft. 2 in. ; 10:21 BP 132 / 89; Pulse 110; Resp 20; Pulse Ox 100% on 2 lpm NC; ph 13:14 BP 148 / 89; Pulse 116; Resp 20; Pulse Ox 96% on R/A; Pain 10/10; tl4 14:19 BP 140 / 96; Pulse 108; Resp 20; Pulse Ox 93% on R/A; Pain 4/10; tl4 09:06 Body Mass Index 34.75 (86.18 kg, 157.48 cm) ph 13:14 Pain Scale: Adult tl4 14:19 Pain Scale: Adult tl4 ED Course: 08:49 Patient arrived in ED. sb4 08:49 Mariola Mahmood PA-C is PHCP. sb4 08:49 Norbert Fisher DO is Attending Physician. sb4 08:52 Evonne Lord, BETH is Primary Nurse. ph 09:07 Triage completed. 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 09:11 Patient has correct armband on for positive identification. Placed in gown. Bed in low ph position. Call light in reach. Side rails up X2. Client placed on continuous cardiac and pulse oximetry monitoring. NIBP monitoring applied. 09:20 Flu Sent. bc6 09:20 SARS RAPID Sent. bc6 09:20 Inserted saline lock: 22 gauge in right forearm, using aseptic technique. Blood bc6 collected. 09:24 Head Brain Wo Cont CT In Process Unspecified. EDMS 09:38 XRAY CXR (1 view) In Process Unspecified. EDMS 10:20 Inserted saline lock: 22 gauge in left antecubital area, using aseptic technique. Blood ph collected. 10:20 Lactate w/ 2H reflex if indic. Sent. ph 10:21 Blood Culture Adult (2) Sent. ph 10:21 Troponin HS Sent. ph 10:21 Ptt, Activated Sent. ph 10:21 PT-INR Sent. ph 10:21 NT PRO-BNP Sent. ph 10:21 Magnesium Sent. ph 10:21 Hepatic Function Sent. ph 10:21 BMP Sent. ph 12:33 John Salinas is Hospitalizing Provider. sb4 13:13 Placed in gown. tl4 14:35 No provider procedures requiring assistance completed. Patient admitted, IV remains in tl4 place. 14:36 Provided Education on: ed process. tl4 Administered Medications: 10:21 Drug: MethylPrednisoLONE IVP 125 mg IVP once Route: IVP; Site: right wrist; ph 14:42 Follow up: Response: No adverse reaction tl4 10:51 Drug: Ketorolac IVP 15 mg IVP once Route: IVP; Site: left antecubital; ph 13:07 Follow up: Response: No adverse reaction tl4 10:52 Drug: DuoNeb Nebulize (3:1) (2.5 mg - 0.5 mg) 3 ml Nebulizer once Route: Nebulizer; ph 13:07 Follow up: Response: No adverse reaction tl4 10:52 Drug: Oseltamivir PO 75 mg PO once Route: PO; ph 13:07 Follow up: Response: No adverse reaction tl4 10:52 Drug: Ondansetron IVP 4 mg IVP once; over 2 minutes Route: IVP; Site: left antecubital; ph 13:07 Follow up: Response: No adverse reaction tl4 11:24 Drug: NS 0.9% IV 500 ml IV at bolus once Route: IV; Rate: bolus; Site: left antecubital;ph 13:06 Follow up: Response: No adverse reaction; IV Status: Completed infusion; IV Intake: tl4 500ml 13:35 Drug: morphine IVP or IV 4 mg IVP once over 4 mins Route: IVP; Infused Over: 4 mins; tl4 Site: right forearm; 14:25 Follow up: Response: Pain is decreased tl4 13:35 Drug: Promethazine IVP 12.5 mg IVP once Route: IVP; Site: right forearm; tl4 14:25 Follow up: Response: Nausea is decreased tl4 Medication: 09:11 VIS not applicable for this client. ph Intake: 13:06 IV: 500ml; Total: 500ml. tl4 Outcome: 12:33 Decision to Hospitalize by Provider. sb4 15:34 Patient left the ED. aa5 Signatures: Dispatcher [employer] EDAna Mcginnis RN RN aa5 Evonne Lord RN RN ph Mariola Mahmood, PAYarelisC PAYarelisC sb4 Rebeca Smart6 Benoit Blancas RN RN tl4
--- NOTE | 2023-08-31 12:56 | P.HP ---
Certification for Inpatient Patient admitted to: Observation With expected LOS: >2 Midnights Practitioner: I am a practitioner with admitting privileges, knowledge of patient current condition, hospital course, and medical plan of care. Services: Services provided to patient in accordance with Admission requirements found in Title 42 Section 412.3 of the Code of Federal Regulations Patient History Date of Service: 08/31/23 Reason for admission: COPD exacerbation 2/2 Flu B History of Present Illness: Heather Coon is a 53-year-old female with past medical history of COPD on home oxygen(uses her 's oxygen), CHF, CAD (hx OK), anxiety, bipolar, arthritis, chronic pain with herniated disc, hypertension, stroke, seizures, CHF who presents to the ED with complaints of cough shortness of breath and chest pain for 2 days. On examination she is unable to take deep breath without coughing, inspiratory and expiratory wheezes present. She is currently a heavy smoker with 1 pack/day. She reports also using marijuana yesterday and drinks 2 beers nightly. she was given steroids, nebulizer treatments, and on room air with satisfactory oxygenation. Laboratory evaluation significant for sodium 135, potassium 3.4, serum glucose 112, alk phos 135, BNP 6840, troponin 38.7 Initial vitals BP 134 / 90; Pulse 110; Resp 24; Temp 97.4; Pulse Ox 97% on 2 lpm NC EKG reports "Rate is 108 beats/min. Rhythm is regular, Sinus tachycardia. [place] interval is normal at 146 msec. QRS interval is normal at 90 msec. QT interval is normal at [address] changes noted. Clinical impression: Abnormal EKG without significant change." Chest x-ray report "The lungs are clear. No pneumothorax or effusion. The cardiomediastinal contours are unremarkable. IMPRESSION: No acute card iopulmonary process." Head CT report "No intracranial hemorrhage, mass, or edema. Midline structures are unremarkable. Normal ventricular caliber for age. Morton-white matter differentiation is preserved, without evidence of acute infarct. No abnormal extra-axial fluid collections. Moderate mucosal thickening most pronounced along the left maxillary sinus. Visualized portions of the mastoid air cells are clear. No acute bony findings. IMPRESSION: No evidence of an acute intracranial process." Heather will be admitted to hospitalist service for further treatment of COPD exacerbation 2/2 Flu B. Allergies levetiracetam [From [facility]] Allergy (Verified 05/15/23 21:02) Anaphylaxis Green tea Allergy (Mild, Uncoded 05/15/23 21:02) seizures Home Medications: Cyclobenzaprine [Flexeril*] 1 tab PO TID 01/15/23 Divalproex Sodium [Depakote] 250 mg PO BID 01/15/23 Metoprolol Tartrate 1 tab PO DAILY 01/15/23 methocarbamoL [Methocarbamol] 2 tab PO QID 01/15/23 clonazePAM [Klonopin] 1 mg PO BEDTIME 01/16/23 Fluticasone/Umeclidin/Vilanter [Trelegy Ellipta 100-62.5-25] 1 each IH DAILY 30 Days #30 aero 05/04/23 Aspirin [Roxanne Chewable Aspirin] 81 mg PO DAILY #30 tab.chew 05/05/23 Furosemide [Lasix*] 40 mg PO DAILY #30 tab 05/05/23 Nitroglycerin [Nitrostat*] 0.4 mg SL UD PRN #3 tab 05/05/23 Codeine/APAP [Tylenol W/Codeine #3 tab] 1 tab PO Q6HP PRN #30 tab 05/19/23 Cyclobenzaprine [Flexeril*] 10 mg PO TID tab 05/19/23 Furosemide [Lasix*] 40 mg PO DAILY tab 05/19/23 Metoprolol Tartrate [Lopressor*] 25 mg PO BID 6AM 6PM tab 05/19/23 Nitroglycerin [Nitrostat*] 0.4 mg SL UD PRN tab 05/19/23 clonazePAM [Klonopin*] 1 mg PO BEDTIME tab 05/19/23 - Past Medical/Surgical History Diabetic: No -: COPD -: Hypertension -: migraines -: Depression with anxiety -: Pancreatitis -: Coronary artery disease-prior myocardial infarction -: Diverticulitis -: Seizure disorder -: Herniated back disc -: Diverticulitis -: Herniated back disc -: history of seizures -: 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 -: cholecystectomy -: 5 hand surgeries -: tonsilectomy Psychosocial/ Personal History: Lives at home with her boyfriend - Family History Father -: Hypertension, Other (see notes) Notes: No premature coronary disease Mother -: Heart disease, Hypertension, GI disease, Diabetes, Liver disease, Kidney disease - Social History Smoking Status: Heavy Tobacco smoker (>10 cigarettes/day) Alcohol use: Yes CD- Drugs: Yes Caffeine use: No Review of Systems General: Weakness Respiratory: Cough, Shortness of Breath, SOB with Excertion Cardiovascular: Chest Pain, Palpitations, Orthopnea Gastrointestinal: Nausea, Vomiting, Diarrhea Musculoskeletal: Neck Pain, Back Pain Neurological: Weakness, Numbness Physical Examination - Physical Exam General: Alert, Oriented x3, Acute distress HEENT: Atraumatic, Normocephalic, PERRLA Neck: Supple, 2+ carotid pulse no bruit, JVD not distended Respiratory: Clear to auscultation bilaterally, Normal air movement Cardiovascular: Normal pulses, Normal S1 S2, Irregular heart rate/rhythm (tachycardia) Capillary refill: <2 Seconds Gastrointestinal: Normal bowel sounds, Soft and benign, Distended (obese) Musculoskeletal: No clubbing, No swelling, No contractures Integumentary: No rashes, No breakdown, No significant lesion, No tenderness/swelling Neurological: Normal speech, Normal strength at 5/5 x4 extr, Normal tone - Studies Laboratory Data (last 24 hrs) 08/31/23 08/31/23 08/31/23 10:05 10:05 09:15 WBC 5.10 Hgb 11.1 L Hct 33.9 L Plt Count 416 H PT 13.0 H INR 1.19 APTT 32.2 Sodium 135 L Potassium 3.4 L BUN 7 Creatinine 0.72 Glucose 112 H Magnesium 2.0 Total Bilirubin 0.4 AST 18 ALT 37 Alkaline Phosphatase 135 H Microbiology Data (last 24 hrs): 08/31/23 09:15 Nasopharnyx Influenza Type A Antigen Screen - Final 08/31/23 09:15 Nasopharnyx Influenza Type B Antigen Screen - Final Assessment and Plan - Plan Assessment and plan COPD exacerbation secondary to flu B History of CHF CAD with history of [place] Chest x-ray reads "No acute cardiopulmonary process" EKG showing sinus tachycardia heart rate of 108, regular rhythm, prolonged QT Echo from 05/11 with a EF 38%, severe diastolic dysfunction BNP 6840, troponin 38.7 Home oxygen as needed-uses her 's oxygen Tamiflu Ipratropium and albuterol nebs Steroids, Lasix, lisinopril, Mucinex, incentive spirometer Currently on room air Dr. Moore consulted History of hypertension Continue home medication History of CVA History of seizure Continue home medication History of anxiety, bipolar Continue home medications when available Supportive care Chronic pain to the neck and back with herniated disc Loss of sensation to all four extremities Loss of ability to ambulate History of arthritis Continue home medications for pain and comfort Patient reports vertebral fusion last year, will continue to evaluate Head CT report " No evidence of an acute intracranial process." CT C spine, thoracic spine, and lumbar spine imaging ordered Polysubstance abuse 2 beers nightly 1 pack of cigarettes daily Marijuana used 08/30/2023 Cessation education provided Ativan as needed Nicotine patch Monitor for withdrawal DVT PPx Lovenox Full code LOS 2 to 3 days Discharge Plan: Home Plan to discharge in: 48 Hours - Advance Directives Does patient have a Living Will: No Does patient have a Durable POA for Healthcare: No Time Spent Managing Pts Care (In Minutes): 50
[2023-08-31] MEDS ORDERED: PROMETHAZINE INJ 25 MG/ML AMP ONE (13:24)
[2023-08-31] MEDS ORDERED: MORPHINE 4 MG/ML SYR ONE (13:24)
[2023-08-31] MEDS ORDERED: IPRATROPIUM BROM 0.5MG/2.5ML NEB PRN (13:38)
[2023-08-31] MEDS ORDERED: ALBUTEROL 2.5 MG/3 ML NEB SOL NEB PRN (13:38)
[2023-08-31] MEDS: FUROSEMIDE 40 MG/4 ML VIAL IV SCH (13:53)
[2023-08-31] MEDS ORDERED: METHYLPREDNISOLONE 125 MG INJ IV SCH (14:00)
[2023-08-31 16:25] VITALS: O2SAT 96; BMI 34.7
[2023-08-31] MEDS ORDERED: INFLUENZA VACCINE (for 6+ mo) 0.5 ML DOSE IMVAC ONE (17:00)
[2023-08-31] MEDS: ENOXAPARIN 40 MG/0.4 ML SQ SCH (17:49)
[2023-08-31] MEDS: GUAIFENESIN 600 MG SA TAB PO SCH (19:48)
[2023-08-31] MEDS: MORPHINE 2 MG/ML SYR IV PRN (19:48)
[2023-08-31] MEDS: OSELTAMIVIR 75 MG CAP PO SCH (19:48)
[2023-08-31] MEDS: LORazepam 2 MG/ML VIAL IV PRN (19:48)
[2023-08-31 19:55] LABS: Urine Bacteria None Seen /HPF (<20); Urine Mucus 2+ /HPF (None Seen); Urine RBC <5 /HPF (None Seen)
[2023-08-31 21:22] LABS: Specific Gravity 1.011 (1.005-1.030); Urine Bilirubin NEGATIVE (Negative); Urine Blood Trace (Negative); Urine Clarity Turbid (Clear); Urine Color Light-Yellow (Yellow); Urine Glucose NEGATIVE (Negative); Urine Protein 1+ (Negative); Urine Urobilinogen Normal (Normal)
[2023-09-01 02:58] LABS: Absolute Lymphocytes (CBC) 1.1 K/uL (0.7-4.9); Hematocrit 30.9 % (36.0-45.0); Lymphocytes % 21.1 % (15.3-44.8); MCV 84.4 fL (80-100); MPV 6.9 fL (7.6-11.3); Platelets 373 thou/uL (152-406); RBC Red Blood Cell Count 3.67 M/uL (3.86-4.86)
[2023-09-01 03:09] LABS: Magnesium 2.2 mg/dL (1.6-2.4); Phosphorus 4.1 mg/dL (2.5-4.9); Potassium 3.8 mEq/L (3.5-5.1)
[2023-09-01] MEDS: BENZONATATE 100 MG CAP PO PRN (03:19)
[2023-09-01] MEDS: NICOTINE 14 MG/PAT TD SCH (09:00)
[2023-09-01] MEDS: METHYLPREDNISOLONE 125 MG INJ IV SCH (09:11)
[2023-09-01] MEDS: POTASSIUM CL SA 10 MEQ TAB PO ONE (09:11)
[2023-09-01] MEDS: LORazepam 2 MG/ML VIAL IV ONE ×2 (09:12→10:11)
[2023-09-01] MEDS: HYDROCODONE/APAP 7.5/325 MG TAB PO PRN (11:42)
--- NOTE | 2023-09-01 12:22 | P.CNS ---
Date of Consult: 09/01/23 Reason for Consult: COPD exacerbation Chief Complaint: COPD exacerbation 2/2 Flu B History of Present Illness: Patient is 53 years of age history of COPD admitted with an exacerbation has been sick for the past 4 days with a productive cough compliant with her medications Allergies levetiracetam [From [facility]] Allergy (Verified 05/15/23 21:02) Anaphylaxis Green tea Allergy (Mild, Uncoded 05/15/23 21:02) seizures Home Medications: Cyclobenzaprine [Flexeril*] 1 tab PO TID 01/15/23 Divalproex Sodium [Depakote] 250 mg PO BID 01/15/23 Metoprolol Tartrate 1 tab PO DAILY 01/15/23 methocarbamoL [Methocarbamol] 2 tab PO QID 01/15/23 clonazePAM [Klonopin] 1 mg PO BEDTIME 01/16/23 Fluticasone/Umeclidin/Vilanter [Trelegy Ellipta 100-62.5-25] 1 each IH DAILY 30 Days #30 aero 05/04/23 Aspirin [Roxanne Chewable Aspirin] 81 mg PO DAILY #30 tab.chew 05/05/23 Furosemide [Lasix*] 40 mg PO DAILY #30 tab 05/05/23 Nitroglycerin [Nitrostat*] 0.4 mg SL UD PRN #3 tab 05/05/23 Codeine/APAP [Tylenol W/Codeine #3 tab] 1 tab PO Q6HP PRN #30 tab 05/19/23 Cyclobenzaprine [Flexeril*] 10 mg PO TID tab 05/19/23 Furosemide [Lasix*] 40 mg PO DAILY tab 05/19/23 Metoprolol Tartrate [Lopressor*] 25 mg PO BID 6AM 6PM tab 05/19/23 Nitroglycerin [Nitrostat*] 0.4 mg SL UD PRN tab 05/19/23 clonazePAM [Klonopin*] 1 mg PO BEDTIME tab 05/19/23 - Past Medical/Surgical History Diabetic: No -: COPD -: Hypertension -: migraines -: Depression with anxiety -: Pancreatitis -: Coronary artery disease-prior myocardial infarction -: Diverticulitis -: Seizure disorder -: Herniated back disc -: Diverticulitis -: Herniated back disc -: history of seizures -: 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 -: cholecystectomy -: 5 hand surgeries -: tonsilectomy Psychosocial/ Personal History: Lives at home with her boyfriend - Family History Father Medical History: Hypertension, Other (see notes) Notes: No premature coronary disease Mother Medical History: Heart disease, Hypertension, GI disease, Diabetes, Liver disease, Kidney disease - Social History Smoking Status: Current every day smoker Alcohol use: Yes CD- Drugs: Yes Caffeine use: No Place of Residence: Home Review of Systems 10-point ROS is otherwise unremarkable General: Weakness Respiratory: Shortness of Breath Physical Examination Temp Pulse Resp BP Pulse Ox 97.1 F 109 H 24 H 136/87 93 09/01/23 08:00 09/01/23 09:13 09/01/23 08:00 09/01/23 09:13 09/01/23 08:00 General: Alert, Oriented x3 Neck: Supple Respiratory: Expiratory wheezes Cardiovascular: No edema, Regular rate/rhythm, Normal S1 S2 Gastrointestinal: Normal bowel sounds, Soft and benign Musculoskeletal: No clubbing, No swelling - Problems (1) COPD exacerbation Current Visit: No Status: Acute Plan: Patient is 53 years of age admitted with COPD exacerbation and she got the flu labs chemistries reviewed mildly anemia vital signs oxygenation satisfactory continue with steroids nebulized bronchodilators
[2023-09-01] MEDS: ARFORMOTEROL TARTRATE 15 MCG/2 ML VIAL.NEB NEB SCH (12:24)
[2023-09-01] MEDS: PROMETHAZINE INJ 25 MG/ML AMP IV ONE ×2 (12:43→12:56)
[2023-09-01] MEDS: HYDROMORPHONE HCL 0.5 MG/0.5 ML INJ IV ONE (12:56)
--- NOTE | 2023-09-01 13:12 | RAD REPORT ---
EXAM DESCRIPTION: MRI - Lumbar Spine Wo Con- 09/01/2023 12:54 pm CLINICAL HISTORY: L-spine pain Previous surgery, radiculopathy COMPARISON: Lumbar Spine Wo Con dated 03/02/2023; Lumbar Spine Wo Con dated 10/23/2022 FINDINGS: Postsurgical changes are present of laminectomy involving L3-4 and L4-5. At the L3-4 level there is broad-based posterior presumed disc bulge. There is a small 5 mm hypointen se structure present left paracentral location just superior to the disc level. Due to lack contrast is not possible to distinguish between scar tissue and recurrent/ residual disc material. The finding s at this level, however, do result in moderate central canal stenosis as well as bilateral lateral r ecess narrowing. Broad-based posterior bulge of presumed this materials present as well with mild degenerative change at this level L4-5. [id number] facet and ligament flavum hypertrophy. Small posterior annular f issure seen. Mild disc bulge is present at L2-3 and L5-S1. IMPRESSION: Postsurgical changes are present at L3-4 and L4-5 as detailed. Spinal canal stenosis gege trally is noted as well as involving both lateral recesses at L3-4 as detailed. Post-contrast sequenc es of the lumbar spine would be helpful to distinguish scar tissue at these levels versus residual or recurrent disc material.
--- NOTE | 2023-09-01 13:24 | P.PN ---
Date of Service: 09/01/23 Subjective: C/O generalized pain/weakness States progressive weakness the last 2 weeks, now unable to walk Breathing mildly improved ROS: 10 point ROS as noted above, otherwise negative Physical exam GEN: Alert, oriented, NAD HEENT: Normal conjunctiva, sclera anicteric CV: Regular rate and rhythm, no edema Pulm: Nonlabored respirations on room air, mild expiratory wheezing ABD: Soft, nontender, nondistended MSK: No joint tenderness Integumentary: No rashes Neuro: Normal speech, normal affect, C/O numbness/paresthesias throughout entire body Vitals reviewed Problem List COPD exacerbation secondary to flu B Chronic systolic congestive heart failure CAD with history of [place] Echo from 05/11 with a EF 38%, severe diastolic dysfunction Continue Tamiflu, prednisone, Lasix Currently on room air Dr. Moore consulted History of hypertension Continue home medication History of CVA History of seizure Continue home medication History of anxiety, bipolar Continue home medications when available Supportive care Chronic pain to the neck and back with herniated disc Loss of sensation to all four extremities Reports loss of sensation to face bilaterally as well Loss of ability to ambulate History of arthritis Continue home medications for pain and comfort Patient reports vertebral fusion last year, will continue to evaluate Head CT report " No evidence of an acute intracranial process." CT C spine, thoracic spine, and lumbar spine imaging ordered Polysubstance abuse 2 beers nightly 1 pack of cigarettes daily Marijuana used 08/30/2023 Cessation education provided Ativan as needed Nicotine patch Monitor for withdrawal DVT PPx Lovenox Full code LOS 2 to 3 days Discharge Plan: Home Plan to discharge in: 48 Hours Time Spent Managing Pts Care (In Minutes): 35
--- NOTE | 2023-09-01 14:54 | RAD REPORT ---
EXAM DESCRIPTION: CT - C Spine Wo Con - 09/01/2023 1:51 pm CLINICAL HISTORY: Previous fusion, fall, weakness/numbness COMPARISON: None. TECHNIQUE: Axial noncontrast thin cut CT images of the cervical spine were obtained with sagittal an d coronal reconstruction images generated and reviewed. All CT scans are performed using dose optimization technique as appropriate and may include automated exposure control or mA/KV adjustment according to patient size. FINDINGS: Sequelae of anterior fusion spanning C3-C7. Osseous bridging across the C4-C7 endplates, w ith corresponding ankylosis across the facet articulations, with the exception of C6-7. Cervical body height and alignment are normal. No disk space narrowing. No fracture or acute bony abnormality. Facet and uncovertebral joint remodeling at on the left at C7-T1 contributes to moderate neural oliva inal narrowing, stable. No bony central canal stenosis. No paraspinal mass or hematoma. IMPRESSION: No acute fracture or subluxation. Stable sequelae of anterior fusion spanning C3-C7. Stable degenerative changes most notably with mode rate neural foraminal narrowing on the left at C7-T1.
--- NOTE | 2023-09-01 14:59 | RAD REPORT ---
EXAM DESCRIPTION: CT - Thoracic Spine W/o Cont - 09/01/2023 1:51 pm CLINICAL HISTORY: Previous fusion, fall, weakness/numbness COMPARISON: C Spine Wo Con dated 07/14/2023; Thoracic Spine W/o Cont dated 07/14/2023; C Spine Wo Co n dated 06/12/2023; Neck Angio dated 08/02/2022 TECHNIQUE: Axial noncontrast CT imaging of the thoracic spine was performed with coronal and sagitta l re-formatted images. All CT scans are performed using dose optimization technique as appropriate and may include automated exposure control or mA/KV adjustment according to patient size. FINDINGS: No acute thoracic spine fracture seen. No aggressive marrow pattern or malalignment. Paraspinal tissues are normal in thickness. No paraspinal abscess or hematoma seen. Intervertebral disc disease assessment is inherently limited by CT. Within these limitations, no high -grade canal stenosis suspected. Sub centimeter left apical calcified granuloma with decreasing size of adjacent 8 mm nodule, previous ly measured 10 mm. Other nodules in the right upper lobe and adjacent to the minor fissure, also demo nstrate interval decrease in size, largest measuring 9 mm, previously measured 13 mm. 2.7 cm nodule o f the left adrenal gland is stable. Status post cholecystectomy. IMPRESSION: No acute thoracic spine fracture or subluxation. Continued decrease in size of bilateral pulmonary nodules as above, favoring an infectious or inflamm atory etiology. Follow-up CT chest in 3-6 months may be considered to ensure resolution.
[2023-09-01] MEDS: clonazePAM 0.5 MG TAB PO PRN (19:25)
[2023-09-01] MEDS ORDERED: predniSONE 20 MG TAB PO SCH (21:00)
[2023-09-01] MEDS ORDERED: DIVALPROEX DR 500MG TAB PO SCH (21:00)
[2023-09-01 21:11] VITALS: BP 132/88; TEMP 98.3
[2023-09-02] MEDS ORDERED: METOPROLOL XL 25 MG TAB PO SCH (06:00)
--- NOTE | 2023-09-02 06:24 | P.DS ---
Admission Date: 09/01/23 Discharge Date: 09/01/23 Disposition: AMA-LEFT AGAINST MEDICAL ADVIC Reason for Admission: COPD exacerbation 2/2 Flu B Hospital Course: Patient left AMA overnight, per chart review was able to wheel herself out in wheelchair. Vital Signs/Physical Exam: Temp Pulse Resp BP Pulse Ox 98.3 F 114 H 18 132/88 96 09/01/23 20:00 09/01/23 20:00 09/01/23 20:00 09/01/23 20:00 09/01/23 20:00 Laboratory Data at Discharge: WBC 5.10 thou/uL (4.3-10.9) 09/01/23 02:43 Hgb 10.2 g/dL (12.0-15.0) L D 09/01/23 02:43 Hct 30.9 % (36.0-45.0) L 09/01/23 02:43 Plt Count 373 thou/uL (152-406) 09/01/23 02:43 PT 13.0 SECONDS (9.5-12.5) H 08/31/23 10:05 INR 1.19 08/31/23 10:05 APTT 32.2 SECONDS (24.3-36.9) 08/31/23 10:05 Sodium 140 mEq/L (136-145) D 09/01/23 02:43 Potassium 3.8 mEq/L (3.5-5.1) 09/01/23 02:43 BUN 15 mg/dL (7-18) 09/01/23 02:43 Creatinine 0.87 mg/dL (0.55-1.02) 09/01/23 02:43 Glucose 132 mg/dL (74-106) H 09/01/23 02:43 Phosphorus 4.1 mg/dL (2.5-4.9) 09/01/23 02:43 Magnesium 2.2 mg/dL (1.6-2.4) 09/01/23 02:43 Total Bilirubin 0.4 mg/dL (0.2-1.0) 08/31/23 10:05 AST 18 U/L (15-37) 08/31/23 10:05 ALT 37 U/L (13-56) 08/31/23 10:05 Alkaline Phosphatase 135 U/L (45-117) H 08/31/23 10:05 Home Medications: Divalproex Sodium [Depakote] 250 mg PO BID 01/15/23 methocarbamoL [Methocarbamol] 2 tab PO QID 01/15/23 Fluticasone/Umeclidin/Vilanter [Trelegy Ellipta 100-62.5-25] 1 each IH DAILY 30 Days #30 aero 05/04/23 Aspirin [Roxanne Chewable Aspirin] 81 mg PO DAILY #30 tab.chew 05/05/23 Furosemide [Lasix*] 40 mg PO DAILY tab 05/19/23 Metoprolol Tartrate [Lopressor*] 25 mg PO BID 6AM 6PM tab 05/19/23 Nitroglycerin [Nitrostat*] 0.4 mg SL UD PRN tab 05/19/23 clonazePAM [Klonopin*] 1 mg PO BEDTIME tab 05/19/23 Followup: NONE,NONE [Primary Care Provider] -
[2023-09-02] MEDS ORDERED: FUROSEMIDE 40 MG TABLET PO SCH (09:00)
--- NOTE | 2023-09-03 14:47 | EKG ---
Test Date: 2023-08-31 Test Time: 19:36:11 Retail Cashier Associate: YASIR MEASUREMENT RESULTS: Intervals: Rate: 111 [place]: 142 QRSD: 86 QT: 294 QTc: 399 [place]: P: 57 [place]: 142 QRS: 76 T: 34 INTERPRETIVE STATEMENTS: Sinus tachycardia Right atrial enlargement Low voltage QRS Nonspecific T wave abnormality Abnormal ECG Compared to ECG 08/31/2023 09:04:45 Low QRS voltage now present T-wave abnormality now present Electronically Signed On 09-03-23 14:42:35 ELECTROPLATER HELPER by Saad Leavitt
--- NOTE | 2023-09-03 14:51 | EKG ---
Test Date: 2023-08-31 Test Time: 09:04:45 Milk Route Deliverer: ASCENCION MEASUREMENT RESULTS: Intervals: Rate: 108 [place]: 146 QRSD: 90 QT: 388 QTc: 519 [place]: P: 69 [place]: 146 QRS: 46 T: 48 INTERPRETIVE STATEMENTS: Sinus tachycardia Right atrial enlargement Borderline ECG Compared to ECG 08/13/2023 18:12:43 No significant changes Electronically Signed On 09-03-23 14:44:36 SUPERINTENDENT CEMETERY by Saad Leavitt
== END 2023-09-01 20:25 | disposition left against medical advice (07) | DRG 191 ==
LOC: ER 08:40 → ERHOLD 13:56 → 2ND 14:16 → OBSVTOIN 09-01 13:13
PROVIDERS: ADMIT Internal Medicine; ATTEND Hospitalist
DX: J44.1 Chronic obstructive pulmonary disease with (acute) exacerbation (principal); I50.22 Chronic systolic (congestive) heart failure; J10.1 Influenza due to other identified influenza virus with other respiratory manifestations; I11.0 Hypertensive heart disease with heart failure; F41.9 Anxiety disorder, unspecified; F31.9 Bipolar disorder, unspecified; M19.90 Unspecified osteoarthritis, unspecified site; F19.10 Other psychoactive substance abuse, uncomplicated; D64.9 Anemia, unspecified; G89.29 Other chronic pain; M54.6 Pain in thoracic spine; I25.10 Atherosclerotic heart disease of native coronary artery without angina pectoris; I25.2 Old myocardial infarction; F17.210 Nicotine dependence, cigarettes, uncomplicated; Z88.8 Allergy status to other drugs, medicaments and biological substances; Z53.29 Procedure and treatment not carried out because of patient's decision for other reasons; Z99.81 Dependence on supplemental oxygen; Z90.49 Acquired absence of other specified parts of digestive tract; Z79.82 Long term (current) use of aspirin; Z11.52 Encounter for screening for COVID-19; Z79.899 Other long term (current) drug therapy
CPT/HCPCS: 31720; 36415; 70450; 71045; 72125; 72128; 72148; 80048; 80076; 81001; 82306; 83036; 83605; 83735; 83880; 84100; 84484; 85025; 85610; 85730; 87040; 87804; 87811; 93005; 94010; 94640; 97161; 97530; 99285; G0378; J1170; J1650; J1940; J2270; J2405; J2550; J2930; J7040; J7605; J7613; J7644

== ENCOUNTER 2023-09-18 20:23 | Inpatient (IN) | payer OTHER ==
--- OUTSIDE RECORDS SUMMARY | 2023-09-18 20:54 | XMS REPORT | Continuity of Care Document ---
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 Name Role Phone Aneta Silva Primary Care Physician PANKAJ OBREGON Attending Clinician Un available AYDEE GO Attending Clinician Unavailable CARA BURGESS Attending Clinician UnavailADAM Moreno Attending Clinician Unavailable THOMAS LOZOYA Attending Clinician Nina MARIAH Quiroga Attending Clinician Unavailable MYLA MIJARES Attending Clinician Unavailable GUSTAVO DELANEY Attending Clinician Unavailable SHY GUILLEN Attending Clinician Unavailable YONATAN LORENZO Attending Clinician Unamario Loyola MD, London Dixon Attending Clinician Nina lisa Obregon MD, Pankaj Bernal Attending Clinician Selin Fry DO Attending Clinician [phone] Bud ELIZONDO, Selin Attending Clinician [phone] SELIN FERRER Attending Clinician Unavailable JUANY GREEN Attending Clinician Unavailable PROVIDER, [facility] Attending Clinician Unavaila DEMETRIUS Siegel Attending Clinician Unavailab KETAN Armenta Attending Clinician Unavail able Kael BELTRAN, Ketan Sanders Attending Clinician [phone] BRIAN BRYAN Attending Clinician Unavailable DO, Brian Attending Clinician [phone] Jenifer ELIZONDO, Cara Hamilton Attending Clinician [phone] Aydee Go MD Attending Clinician [phone] System, Provider Not In Attending Clinician Unav paulable Dallas Gomez Attending Clinician Unavaila yaya Garcia MD, Adam Joshi Attending Clinician [phone] Mercedez ELIZONDO, Harry Attending Clinician [phone] Rocael ELIZONDO, Antwon Mccrary Attending Clinician + [phone] Yue Bui MD Attending Clinician [phone] Connie Davey MD Attending Clinician + [phone] Jasen ELIZONDO, Mariah Attending Clinician [phone] Valerio ELIZONDO, Thomas Hopkins Attending Clinician CONNIE DAVEY Attending Clinician UnavailAlfonso Oh Attending Clinician Unavailable Alfonso Lopez Attending Clinician [phone] RITCHIE WARREN Attending Clinician Unavailable Ritchie Warren MD Attending Clinician [phone] Rk CAMPOS, Shy Stoner Attending Clinician [phone] Reji ELIZONDO, Halima Hummel Attending Clinician [phone] Lucho ELIZONDO, Jen Olivia Attending Clinician +[phone] Roxi ELIZONDO, Parrish Reyez Attending Clinici an ROXI, PARRISH CR Attending Clinician Unavaila LORENZA Mariscal Attending Clinician Unavailable Alcon ELIZONDO, Sav Attending Clinician [phone] Essence ELIZONDO, Lorenza Attending Clinician [phone] Corey DUMONT, Maria Teresa Attending Clinician + [phone] CHANTEL BOJORQUEZ Attending Clinician CHANTEL Kelly Attending Clinician Jack Ibrahim MD, Brandyn Otoole Attending Clinician [phone] SELINA MARTINES Attending Clinician Unavailable Sapna Vargas DO Attending Clinician [phone] Tyrel ELIZONDO, Glory Katz Attending Clinician + Selina Martines MD Attending Clinician [phone] Vaccine, Chung Pierson Attending Clinician U chelsi Pak MD, Jose Attending Clinician [phone] JOSE PAK Attending Clinician Unavailable NICHELLE VIRK Attending Clinician Unavaila Nichelle Lakhani Attending Clinician [phone] Doctor Unassigned, Marty Attending Clinician U chelsi Nava RN, Miky Attending Clinician Unavailab Fabrice Jarrett Attending Clinician + [phone] Lydia Eaton Attending Clinician [phone] Unknown, Attending Attending Clinician Unavailab le UNKNOWN, ATTENDING Attending Clinician Unavailab Anali Berg Attending Clinician [phone] Yehuda Arcos MD Attending Clinician [phone] PANKAJ OBREGON Admitting Clinician Un available CARA BURGESS Admitting Clinician Unavailab ADAM Cabrera Admitting Clinician Unavailable MARIAH ALDRIDGE Admitting Clinician Unavailable CONNIE DAVEY Admitting Clinician UnavailAlfonso Oh Admitting Clinician Unavailable RITCHIE WARREN Admitting Clinician Unavailable JEN GELLER Admitting Clinician Unavaila LORENZA Mariscal Admitting Clinician Unavailable Lorenza Lowry MD Admitting Clinician [phone] BRANDYN IBRAHIM Admitting Clinician Unavailable Brandyn Ibrahim MD Admitting Clinician [phone] GLORY ESTEVES Admitting Clinician Unav ailable NICHELLE VIRK Admitting Clinician Unavaila ble Payers Payer Name Policy Type Policy Number Effective Date Expirati on Date Source [facility] [id number] 2023 00:00:00 [facility] [id number] 2023 00:00:00 [facility] SESAR NASHAdi COPAY FOCUS 9 [id number] 2023 00:00:00 [facility] [id number] 2023 00:00:00 MEDICAID PENDING PENDING 2022 00:00:00 Problems Condition Name Condition Details Condition Category Status Onset Date Resolution Date Last Treatment Date Treating Clinician Comments Source Congestive heart failure (multi HCC) Congestive heart failure (multi HCC) Disease Active 09-11 00:00: 00 Cynthia Santoyo Externa lisa Bipolar disorder (multi HCC) Bipolar disorder (multi HCC) Disease Active 09-11 00:00: 00 Cynthia Santoyo Externa lisa Seizure disorder (multi HCC) Seizure disorder (multi HCC) Disease Active 09-11 00:00: 00 Cynthia Santoyo Externa lisa Prediabete s Prediabete s Disease Active 09-11 00:00: 00 Cynthia Erazoa lisa Bilateral leg weakness Bilateral leg weakness Disease Active 2022-07 00:00: 00 [facility] Pneumonia Pneumonia Disease Active 2022-07 00:00: 00 [facility] Cavitary lesion of lung Cavitary lesion of lung Disease Active 2022-07 00:00: 00 [facility] Cervical myelopathy Cervical myelopathy Disease Recurre nce 2022-07- 00:00: 00 [facility] Cervical disc disorder with myelopathy , high cervical region Cervical disc disorder with myelopathy , high cervical region Disease Active 2022-07 00:00: 00 [facility] Cord compressio n Cord compressio n Disease Recurre nce - 00:00: 00 [facility] Cauda equina compressio n Cauda equina compressio n Disease Active 03-30 00:00: 00 [facility] Seizure Seizure Disease Recurre nce 08-02 00:00: 00 [facility] Cardiomyop athy Cardiomyop athy Disease Active 08-01 00:00: 00 [facility] NSVT (nonsustai keisha ventricula r tachycardi a) NSVT (nonsustai keisha ventricula r tachycardi a) Disease Active 08-01 00:00: 00 [facility] Chest pain, unspecifie d type Chest pain, unspecifie d type Disease Active 07-31 00:00: 00 [facility] Elevated brain natriureti c peptide (BNP) level Elevated brain natriureti c peptide (BNP) level Disease Active 07-31 00:00: 00 [facility] Coronary artery disease involving [place] vie[place] coronary artery of [place] heart without angina pectoris Coronary artery disease involving [place] coronary artery of [place] heart without angina pectoris Disease Active 07-31 00:00: 00 [facility] Snores Snores Disease Active 07-31 00:00: 00 [facility] Cigarette smoker Cigarette smoker Disease Active 07-31 00:00: 00 [facility] Primary hypertensi on Primary hypertensi on Disease Active 07-31 00:00: 00 [facility] Other hyperlipid emia Other hyperlipid emia Disease Active 2023-0 1-12 00:00: 00 [facility] Coronary artery disease involving [place] vie[place] coronary artery of [place] heart without angina pectoris Coronary artery disease involving [place] coronary artery of [place] heart without angina pectoris Disease Active 1 00:00: 00 [facility] Chronic bilateral low back pain with bilateral sciatica Chronic bilateral low back pain with bilateral sciatica Disease Active 2021-07 0-17 00:00: 00 [facility] 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 Disease Active 04-15 00:00: 00 [facility] Neuroforam inal stenosis of cervical spine Neuroforam inal stenosis of cervical spine Disease Active 04-15 00:00: 00 [facility] Stroke-lik e symptoms Stroke-lik e symptoms Disease Active 04-13 00:00: 00 [facility] Bipolar disorder, in partial remission, most recent episode manic Bipolar disorder, in partial remission, most recent episode manic Disease Active 09-27 00:00: 00 [facility] Neuroforam inal stenosis of lumbar spine Neuroforam inal stenosis of lumbar spine Disease Active 09-27 00:00: 00 [facility] Bilateral acute otitis media, recurrence not specified, unspecifie d otitis media type Bilateral acute otitis media, recurrence not specified, unspecifie d otitis media type Disease Active 09-27 00:00: 00 [facility] Lumbar spinal stenosis Lumbar spinal stenosis Disease Active 09-27 00:00: 00 [facility] Right-side d low back pain with sciatica, sciatica laterality unspecifie d Right-side d low back pain with sciatica, sciatica laterality unspecifie d Disease Active 09-27 00:00: 00 [facility] Generalize d anxiety disorder Generalize d anxiety disorder Disease Active 09-27 00:00: 00 [facility] Agoraphobi a Agoraphobi a Disease Active 09-27 00:00: 00 [facility] Bipolar disorder, in partial remission, most recent episode manic Bipolar disorder, in partial remission, most recent episode manic Disease Active 09-27 00:00: 00 [facility] Obsessive compulsive disorder Obsessive compulsive disorder Disease Active 09-27 00:00: 00 [facility] Breast mass, left Breast mass, left Disease Active 09-17 00:00: 00 [facility] Anxiety Anxiety Disease Active 09-17 00:00: 00 [facility] Lower back pain Lower back pain Disease Active 09-17 00:00: 00 [facility] High blood pressure High blood pressure Disease Active 09-17 00:00: 00 [facility] COPD (chronic obstructiv e pulmonary disease) COPD (chronic obstructiv e pulmonary disease) Disease Active 09-17 00:00: 00 [facility] Obesity Obesity Disease Active 09-17 00:00: 00 [facility] Allergies, Adverse Reactions, Alerts Allergy Name Allergy Type Status Severity Reaction(s) Onset Date Inactive Date Treating Clinician Comments Source FLUOXETI NE Allergy Active 03-29 00:00: 00 [facility] GREEN TEA Allergy Active High Other 03-29 00:00: 00 [facility] LEVETIRA CETAM Allergy Active High N\\T\\V 03-29 00:00: 00 [facility] Green Tea Propensi ty to adverse reaction s Active 03-29 00:00: 00 Seizure like activity [facility] Levetira cetam Propensi ty to adverse reaction s Active Nausea And Vomiting 03-29 00:00: 00 Intensifi es seizure [facility] Fluoxeti ne Propensi ty to adverse reaction s Active 03-29 00:00: 00 [facility] Green Tea Drug Allergy Active Other (See Comments) 03-29 00:00: 00 Seizure like activity [facility] Levetira cetam Drug Allergy Active Nausea And Vomiting 03-29 00:00: 00 Intensifi es seizure [facility] Levetira cetam Propensi ty to adverse reaction s Active Other 11-17 00:00: 00 Intensifi es seizure Makes seizures worse Makes seizures worse Intensifi es seizure Cynthia Bedoyaold - Externa l LEVETIRA CETAM DRUG INGREDI Active Other-Cmnt 11-17 00:00: 00 [facility] Levetira cetam Propensi ty to adverse reaction s Active Other - See comments 11-17 00:00: 00 Makes seizures worse [facility] Green Tea Propensi ty to adverse reaction s Active 08-02 00:00: 00 [facility] GREEN TEA Allergy Active 08-02 00:00: 00 [facility] FLUOXETI NE Allergy Active Med Rash 08-02 00:00: 00 [facility] Fluoxeti ne Propensi ty to adverse reaction s Active Rash 08-02 00:00: 00 [facility] Fluoxeti ne Propensi ty to adverse reaction s Active Unknown - See comments 03-25 00:00: 00 [facility] FLUOXETI NE DRUG INGREDI Active Unknown-Cmnt 03-25 00:00: 00 [facility] Diclofen ac Propensi ty to adverse reaction s Active Anxiety 11-20 00:00: 00 Cynthia Bedoyaold - Externa l DICLOFEN AC DRUG INGREDI Active HYPERTENSION 11-20 00:00: 00 [facility] Green Tea Propensi ty to adverse reaction s Active Anxiety 08-10 00:00: 00 Seizure like activity Seizures Seizures Seizure like activity Cynthia Bedoyaold - Externa l GREEN TEA DRUG INGREDI Active Med Other-Cmnt 08-10 00:00: 00 [facility] Green Tea Propensi ty to adverse reaction s to drug Active Other - See comments 08-10 00:00: 00 Seizures [facility] FLUOXETI NE HCL DRUG INGREDI Active Hives 8 00:00: 00 [facility] Fluoxeti ne Hcl Propensi ty to adverse reaction s Active Hives 0 03-19 00:00: 00 [facility] Family History Family Member Diagnosis Comments Start Date Stop Date Sourc e Natural mother Alcohol abuse [facility] Natural mother Stroke [facility] Natural mother Alcohol abuse C [facility] Natural mother Cancer [facility] Natural mother Diabetes [facility] Natural mother Heart disease [facility] Natural mother Hyperlipidemia [facility] Natural mother Kidney disease [facility] Natural [facility] Paternal uncle Diabetes [facility] Social History Social Habit Start Date Stop Date Quantity Comments Source History SDOH Social Connections Get Together [facility] History SDOH Social Connections [facility] History SDOH Social Connections Membership [facility] History SDOH Social Connections Meetings [facility] History SDOH Alcohol Frequency [facility] History SDOH Alcohol Std Drinks [facility] History SDOH Alcohol Binge [facility] History SDOH Housing Homeless Last Year [facility] Sexual orientation [facility] Tobacco use and exposure 2023-09-11 00:00:00 2023-09-11 00:00:00 Smokeless tobacco non-user Cynthia Garcia - External History of Social function 2023-08-03 00:00:00 2023-08-03 00:00:00 [facility] Alcohol intake 2023-06-02 00:00:00 2023-06-02 00:00:00 Current drinker of alcohol (finding) [facility] Exposure to SARS-CoV-2 (event) 2023-05-18 00:00:00 2023-05-28 07:28:00 Not sure [facility] History SDOH Housing Unable to Pay - In the last 12 months, was there a time when you were not able to pay the mortgage or rent on time? 2023-05-26 00:00:00 2023-05-26 00:00:00 Yes [facility] Cigarettes smoked current (pack per day) - Reported 2023-05-26 00:00:00 2023-05-26 00:00:00 [facility] Cigarette pack-years 2023-05-26 00:00:00 2023-05-26 00:00:00 [facility] History of tobacco use 1987-05-22 00:00:00 2023-05-22 00:00:00 Cigarette Smoker [facility] History SDOH Housing Places Lived 2023-03-30 00:00:00 2023-03-30 00:00:00 1 [facility] Alcohol Comment 2023-03-29 00:00:00 2023-03-29 00:00:00 2x a week [facility] History SDOH Social Connections Phone 2022-08-01 00:00:00 2022-08-01 00:00:00 5 [facility] History SDOH Social Connections Living 2022-08-01 00:00:00 2022-08-01 00:00:00 5 [facility] History SDOH Physical Activity DPW 2022-08-01 00:00:00 2022-08-01 00:00:00 0 [facility] History SDOH Physical Activity MPS 2022-08-01 00:00:00 2022-08-01 00:00:00 0 [facility] History SDOH Financial 2022-08-01 00:00:00 2022-08-01 00:00:00 3 [facility] History SDOH Food Worry 2022-08-01 00:00:00 2022-08-01 00:00:00 1 [facility] History SDOH Food Scarcity 2022-08-01 00:00:00 2022-08-01 00:00:00 1 [facility] History SDOH Transport Med 2022-08-01 00:00:00 2022-08-01 00:00:00 2 [facility] History SDOH Transport Non-Med 2022-08-01 00:00:00 2022-08-01 00:00:00 2 [facility] Education - What is the highest level of school you have completed or the highest degree you have received? 2022-07-31 00:00:00 2022-07-31 00:00:00 GED or equivalent [facility] Sex Assigned At 1970 00:00:00 1970 00:00:00 [facility] Smoking Status Start Date Stop Date Source Never smoked tobacco Cynthia Guillen Ex-smoker 2023-05-26 00:00:00 2023-05-26 00:00:00 [facility] Smokes tobacco daily 2023-03-29 00:00:00 [facility] Medications Ordered Medication Name Filled Medication Name Start Date Stop Date Current Medication? Ordering Clinician Indication Dosage Frequency Signature (SIG) Comments Components Source Varenicline Tartrate 1 MG oral Tablet 09-11 11:33: 57 Yes 1mg Take 1 tablet (1 mg total) by mouth 2 times daily. Cynthia gonzalez Loratadine 10 MG oral Capsule 09-11 11:33: 57 Yes Take by mouth daily. Cynthia gonzalez Metronidazo le 500 MG oral Tablet 09-11 11:33: 57 Yes TAKE ONE (1) TABLET(S) BY MOUTH EVERY EIGHT HOURS FOR 7 DAYS. Cynthia gonzalez Pantoprazol e Sodium 40 MG oral Tablet Delayed Response 09-11 11:33: 57 Yes 40mg Take 1 tablet (40 mg total) by mouth daily. Cynthia gonzalez Acetaminoph en-Codeine (TYLENOL/CO DEINE #3) 300-30 MG oral Tablet 09-11 00:00: 00 Yes [id number] 1{tbl} Q.25D Take 1 tablet by mouth every 6 hours as needed for pain. Cynthia gonzalez Mirtazapine 15 MG oral Tablet 09-11 00:00: 00 Yes [id number] 15mg QD Take 1 tablet (15 mg total) by mouth nightly as needed. Cynthia gonzalez DULoxetine (CYMBALTA) 60 MG capsule 09-09 00:00: 00 10-08 23:59 :00 Yes 60mg QD Take 1 capsule (60 mg total) by mouth daily for 30 days. [facility] DULoxetine (CYMBALTA) 60 MG capsule 09-09 00:00: 00 10-08 23:59 :00 Yes 60mg QD Take 1 capsule (60 mg total) by mouth daily for 30 days. [facility] DULoxetine (CYMBALTA) 60 MG capsule 09-09 00:00: 00 10-08 23:59 :00 Yes 60mg QD Take 1 capsule (60 mg total) by mouth daily for 30 days. [facility] varenicline (CHANTIX) 1 mg tablet 09-08 10:51: 03 Yes 1mg Q.5D Take 1 tablet (1 mg total) by mouth 2 (two) times daily Give with meals and with a full glass of water.. [facility] atorvastati n (LIPITOR) 20 MG tablet 09-08 10:51: 03 Yes 20mg QD Take 1 tablet (20 mg total) by mouth daily. [facility] varenicline (CHANTIX) 1 mg tablet 09-08 10:51: 03 Yes 1mg Q.5D Take 1 tablet (1 mg total) by mouth 2 (two) times daily Give with meals and with a full glass of water.. [facility] atorvastati n (LIPITOR) 20 MG tablet 09-08 10:51: 03 Yes 20mg QD Take 1 tablet (20 mg total) by mouth daily. [facility] varenicline (CHANTIX) 1 mg tablet 09-08 10:51: 03 Yes 1mg Q.5D Take 1 tablet (1 mg total) by mouth 2 (two) times daily Give with meals and with a full glass of water.. [facility] atorvastati n (LIPITOR) 20 MG tablet 09-08 10:51: 03 Yes 20mg QD Take 1 tablet (20 mg total) by mouth daily. [facility] Cyanocobala min (Vitamin B-12) 1000 MCG oral Tablet 09-08 00:00: 00 10-08 04:59 :00 Yes 1000ug Take 1 tablet (1,000 mcg total) by mouth daily. Cynthia gonzalez lidocaine (LIDODERM) 4 % patch 09-08 00:00: 00 10-07 23:59 :00 Yes 3{patch } Q24H Place 3 patches onto the skin daily for 30 days. [facility] cyanocobala min (VITAMIN B-12) 1000 MCG tablet 09-08 00:00: 00 10-07 23:59 :00 Yes 1000ug QD Take 1 tablet (1,000 mcg total) by mouth daily for 30 days. [facility] lidocaine (LIDODERM) 4 % patch 09-08 00:00: 00 10-07 23:59 :00 Yes 3{patch } Q24H Place 3 patches onto the skin daily for 30 days. [facility] cyanocobala min (VITAMIN B-12) 1000 MCG tablet 09-08 00:00: 00 10-07 23:59 :00 Yes 1000ug QD Take 1 tablet (1,000 mcg total) by mouth daily for 30 days. [facility] lidocaine (LIDODERM) 4 % patch 09-08 00:00: 00 10-07 23:59 :00 Yes 3{patch } Q24H Place 3 patches onto the skin daily for 30 days. [facility] cyanocobala min (VITAMIN B-12) 1000 MCG tablet 09-08 00:00: 00 10-07 23:59 :00 Yes 1000ug QD Take 1 tablet (1,000 mcg total) by mouth daily for 30 days. [facility] metoprolol succinate (TOPROL-XL) 25 MG 24 hr tablet 09-07 16:47: 05 09-07 00:00 :00 No 25mg QD Take 1 tablet (25 mg total) by mouth daily. [facility] albuterol HFA (VENTOLIN HFA) 90 mcg/actuati on inhaler 09-07 16:47: 05 09-07 00:00 :00 No 1{puff} Inhale 1 puff by mouth via inhaler every 6 (six) hours as needed for Wheezing. [facility] fluticasone -umeclidin- vilanter (Trelegy Ellipta) 200-62.5-25 mcg DsDv 09-07 16:47: 05 09-07 00:00 :00 No QD Inhale by mouth via inhaler daily. [facility] metoprolol succinate (TOPROL-XL) 25 MG 24 hr tablet 09-07 16:47: 05 09-07 00:00 :00 No 25mg QD Take 1 tablet (25 mg total) by mouth daily. [facility] albuterol HFA (VENTOLIN HFA) 90 mcg/actuati on inhaler 09-07 16:47: 05 09-07 00:00 :00 No 1{puff} Inhale 1 puff by mouth via inhaler every 6 (six) hours as needed for Wheezing. [facility] fluticasone -umeclidin- vilanter (Trelegy Ellipta) 200-62.5-25 mcg DsDv 09-07 16:47: 05 09-07 00:00 :00 No QD Inhale by mouth via inhaler daily. [facility] metoprolol succinate (TOPROL-XL) 25 MG 24 hr tablet 09-07 16:47: 05 09-07 00:00 :00 No 25mg QD Take 1 tablet (25 mg total) by mouth daily. [facility] albuterol HFA (VENTOLIN HFA) 90 mcg/actuati on inhaler 09-07 16:47: 05 09-07 00:00 :00 No 1{puff} Inhale 1 puff by mouth via inhaler every 6 (six) hours as needed for Wheezing. [facility] fluticasone -umeclidin- vilanter (Trelegy Ellipta) 200-62.5-25 mcg DsDv 09-07 16:47: 05 09-07 00:00 :00 No QD Inhale by mouth via inhaler daily. [facility] Albuterol HFA 108 (90 Base) MCG/ACT IN AERS 09-07 00:00: 00 10-07 04:59 :00 Yes 1{puff} Q.25D Inhale 1 puff into the lungs every 6 hours as needed. Cynthia gonzalez Baclofen 5 MG oral Tablet 09-07 00:00: 00 10-07 04:59 :00 Yes 5mg Take 1 tablet (5 mg total) by mouth nightly. Cynthia gonzalez Sennosides- Docusate Sodium 8.6-50 MG oral Tablet 09-07 00:00: 00 10-07 04:59 :00 Yes 2{tbl} Take 2 tablets by mouth 2 times daily. Cynthia gonzalez tamsulosin (FLOMAX) 0.4 mg Cap 24 hr capsule 09-07 00:00: 00 10-06 23:59 :00 Yes .4mg QD Take 1 capsule (0.4 mg total) by mouth daily for 30 days. [facility] senna-docus ate (SENOKOT S) 8.6-50 mg per tablet 09-07 00:00: 00 10-06 23:59 :00 Yes 2{tbl} Q.5D Take 2 tablets by mouth 2 (two) times daily for 30 days. [facility] polyethylen e glycol (GLYCOLAX) 17 gram packet 09-07 00:00: 00 10-06 23:59 :00 Yes 17g Q.5D Take 17 g by mouth 2 (two) times daily for 30 days. [facility] gabapentin (NEURONTIN) 400 MG capsule 09-07 00:00: 00 10-06 23:59 :00 Yes 400mg [id number] 3D Take 1 capsule (400 mg total) by mouth 3 (three) times daily for 30 days. [facility] furosemide (LASIX) 20 MG tablet 09-07 00:00: 00 10-06 23:59 :00 Yes 20mg QD Take 1 tablet (20 mg total) by mouth daily for 30 days. [facility] fluticasone -umeclidin- vilanter (Trelegy Ellipta) 200-62.5-25 mcg DsDv 2- 00:00: 00 10-06 23:59 :00 Yes 1{inhal ation} QD Inhale 1 Inhalation by mouth via inhaler daily for 30 days. [facility] albuterol HFA (VENTOLIN HFA) 90 mcg/actuati on inhaler - 00:00: 00 10-06 23:59 :00 Yes 1{puff} Inhale 1 puff by mouth via inhaler every 6 (six) hours as needed for Wheezing for up to 30 days. [facility] metoprolol succinate (TOPROL-XL) 25 MG 24 hr tablet 09-07 00:00: 00 10-06 23:59 :00 Yes 25mg QD Take 1 tablet (25 mg total) by mouth daily for 30 days. [facility] baclofen (LIORESAL) 5 mg Tab 09-07 00:00: 00 10-06 23:59 :00 Yes 5mg QD Take 1 tablet (5 mg total) by mouth nightly for 30 days. [facility] tamsulosin (FLOMAX) 0.4 mg Cap 24 hr capsule 09-07 00:00: 00 10-06 23:59 :00 Yes .4mg QD Take 1 capsule (0.4 mg total) by mouth daily for 30 days. [facility] senna-docus ate (SENOKOT S) 8.6-50 mg per tablet - 00:00: 00 10-06 23:59 :00 Yes 2{tbl} Q.5D Take 2 tablets by mouth 2 (two) times daily for 30 days. [facility] polyethylen e glycol (GLYCOLAX) 17 gram packet - 00:00: 00 10-06 23:59 :00 Yes 17g Q.5D Take 17 g by mouth 2 (two) times daily for 30 days. [facility] gabapentin (NEURONTIN) 400 MG capsule - 00:00: 00 10-06 23:59 :00 Yes 400mg [id number] 3D Take 1 capsule (400 mg total) by mouth 3 (three) times daily for 30 days. [facility] furosemide (LASIX) 20 MG tablet 09-07 00:00: 00 10-06 23:59 :00 Yes 20mg QD Take 1 tablet (20 mg total) by mouth daily for 30 days. [facility] fluticasone -umeclidin- vilanter (Trelegy Ellipta) 200-62.5-25 mcg DsDv - 00:00: 00 10-06 23:59 :00 Yes 1{inhal ation} QD Inhale 1 Inhalation by mouth via inhaler daily for 30 days. [facility] albuterol HFA (VENTOLIN HFA) 90 mcg/actuati on inhaler 09-07 00:00: 00 10-06 23:59 :00 Yes 1{puff} Inhale 1 puff by mouth via inhaler every 6 (six) hours as needed for Wheezing for up to 30 days. [facility] metoprolol succinate (TOPROL-XL) 25 MG 24 hr tablet 09-07 00:00: 00 10-06 23:59 :00 Yes 25mg QD Take 1 tablet (25 mg total) by mouth daily for 30 days. [facility] baclofen (LIORESAL) 5 mg Tab 09-07 00:00: 00 10-06 23:59 :00 Yes 5mg QD Take 1 tablet (5 mg total) by mouth nightly for 30 days. [facility] tamsulosin (FLOMAX) 0.4 mg Cap 24 hr capsule 09-07 00:00: 00 10-06 23:59 :00 Yes .4mg QD Take 1 capsule (0.4 mg total) by mouth daily for 30 days. [facility] senna-docus ate (SENOKOT S) 8.6-50 mg per tablet - 00:00: 00 10-06 23:59 :00 Yes 2{tbl} Q.5D Take 2 tablets by mouth 2 (two) times daily for 30 days. [facility] polyethylen e glycol (GLYCOLAX) 17 gram packet 09-07 00:00: 00 10-06 23:59 :00 Yes 17g Q.5D Take 17 g by mouth 2 (two) times daily for 30 days. [facility] gabapentin (NEURONTIN) 400 MG capsule 09-07 00:00: 00 10-06 23:59 :00 Yes 400mg [id number] 3D Take 1 capsule (400 mg total) by mouth 3 (three) times daily for 30 days. [facility] furosemide (LASIX) 20 MG tablet 09-07 00:00: 00 10-06 23:59 :00 Yes 20mg QD Take 1 tablet (20 mg total) by mouth daily for 30 days. [facility] fluticasone -umeclidin- vilanter (Trelegy Ellipta) 200-62.5-25 mcg DsDv 09-07 00:00: 00 10-06 23:59 :00 Yes 1{inhal ation} QD Inhale 1 Inhalation by mouth via inhaler daily for 30 days. [facility] albuterol HFA (VENTOLIN HFA) 90 mcg/actuati on inhaler 09-07 00:00: 00 10-06 23:59 :00 Yes 1{puff} Inhale 1 puff by mouth via inhaler every 6 (six) hours as needed for Wheezing for up to 30 days. [facility] metoprolol succinate (TOPROL-XL) 25 MG 24 hr tablet 09-07 00:00: 00 10-06 23:59 :00 Yes 25mg QD Take 1 tablet (25 mg total) by mouth daily for 30 days. [facility] baclofen (LIORESAL) 5 mg Tab 09-07 00:00: 00 10-06 23:59 :00 Yes 5mg QD Take 1 tablet (5 mg total) by mouth nightly for 30 days. [facility] lacosamide (VIMPAT) 100 mg in NaCl 0.9% (NS) 50 mL piggyback 08-12 21:15: 00 08-12 21:23 :00 No 100mg 100 mg, IV Piggyback, ONCE, 1 dose, On Thu08/12/23 at 1515, Administer over 30 Minutes, 50 mL
Facu lty member approving Restricted medication : BRIAN BRYAN [facility] Dicyclomine HCl 20 MG oral Tablet 08-06 00:00: 00 Yes 20mg Take 1 tablet (20 mg total) by mouth 4 times daily. Cynthia gonzalez Tamsulosin HCl 0.4 MG oral Capsule 2022-07 00:00: 00 Yes TAKE ONE (1) CAPSULE(S) BY MOUTH DAILY FOR 5 DAYS. [facility] tamsulosin (FLOMAX) 0.4 mg Cap 24 hr capsule 2022-07 00:00: 00 06-22 23:59 :00 No .4mg QD Take 1 capsule (0.4 mg total) by mouth daily for 5 days. [facility] tamsulosin (FLOMAX) 0.4 mg Cap 24 hr capsule 2022-07 00:00: 00 06-22 23:59 :00 No .4mg QD Take 1 capsule (0.4 mg total) by mouth daily for 5 days. [facility] tamsulosin (FLOMAX) 0.4 mg Cap 24 hr capsule 2022-07 00:00: 00 06-22 23:59 :00 No .4mg QD Take 1 capsule (0.4 mg total) by mouth daily for 5 days. [facility] tamsulosin (FLOMAX) 0.4 mg Cap 24 hr capsule 2022-07 00:00: 00 06-22 23:59 :00 No .4mg QD Take 1 capsule (0.4 mg total) by mouth daily for 5 days. [facility] tamsulosin (FLOMAX) 0.4 mg Cap 24 hr capsule 2022-07 00:00: 00 06-22 23:59 :00 No .4mg QD Take 1 capsule (0.4 mg total) by mouth daily for 5 days. [facility] tamsulosin (FLOMAX) 0.4 mg Cap 24 hr capsule 2022-07 00:00: 00 06-22 23:59 :00 No .4mg QD Take 1 capsule (0.4 mg total) by mouth daily for 5 days. [facility] tamsulosin (FLOMAX) 0.4 mg Cap 24 hr capsule 2022-07 00:00: 00 06-22 23:59 :00 No .4mg QD Take 1 capsule (0.4 mg total) by mouth daily for 5 days. [facility] tamsulosin (FLOMAX) 0.4 mg Cap 24 hr capsule 2022-07 00:00: 00 06-22 23:59 :00 No .4mg QD Take 1 capsule (0.4 mg total) by mouth daily for 5 days. [facility] tamsulosin (FLOMAX) 0.4 mg Cap 24 hr capsule 2022-07 00:00: 00 06-22 23:59 :00 No .4mg QD Take 1 capsule (0.4 mg total) by mouth daily for 5 days. [facility] tamsulosin (FLOMAX) 0.4 mg Cap 24 hr capsule 2022-07 00:00: 00 06-22 23:59 :00 No .4mg QD Take 1 capsule (0.4 mg total) by mouth daily for 5 days. [facility] tamsulosin (FLOMAX) 0.4 mg Cap 24 hr capsule 2022-07 00:00: 00 06-22 23:59 :00 No .4mg QD Take 1 capsule (0.4 mg total) by mouth daily for 5 days. [facility] tamsulosin (FLOMAX) 0.4 mg Cap 24 hr capsule 2022-07 00:00: 00 06-22 23:59 :00 No .4mg QD Take 1 capsule (0.4 mg total) by mouth daily for 5 days. [facility] tamsulosin (FLOMAX) 0.4 mg Cap 24 hr capsule 2022-07 00:00: 06-22 23:59 :00 No .4mg QD Take 1 capsule (0.4 mg total) by mouth daily for 5 days. [facility] tamsulosin (FLOMAX) 0.4 mg Cap 24 hr capsule 2022-07 00:00: 00 06-22 23:59 :00 No .4mg QD Take 1 capsule (0.4 mg total) by mouth daily for 5 days. [facility] tamsulosin (FLOMAX) 0.4 mg Cap 24 hr capsule 2022-07 00:00: 00 06-22 23:59 :00 No .4mg QD Take 1 capsule (0.4 mg total) by mouth daily for 5 days. [facility] tamsulosin (FLOMAX) 0.4 mg Cap 24 hr capsule 2022-07 00:00: 00 06-22 23:59 :00 No .4mg QD Take 1 capsule (0.4 mg total) by mouth daily for 5 days. [facility] tamsulosin (FLOMAX) 0.4 mg Cap 24 hr capsule 2022-07 00:00: 00 06-22 23:59 :00 No .4mg QD Take 1 capsule (0.4 mg total) by mouth daily for 5 days. [facility] tamsulosin (FLOMAX) 0.4 mg Cap 24 hr capsule 2022-07 00:00: 00 06-22 23:59 :00 No .4mg QD Take 1 capsule (0.4 mg total) by mouth daily for 5 days. [facility] tamsulosin (FLOMAX) 0.4 mg Cap 24 hr capsule 2022-07 00:00: 00 06-22 23:59 :00 No .4mg QD Take 1 capsule (0.4 mg total) by mouth daily for 5 days. [facility] tamsulosin (FLOMAX) 0.4 mg Cap 24 hr capsule 2022-07 00:00: 00 06-22 23:59 :00 No .4mg QD Take 1 capsule (0.4 mg total) by mouth daily for 5 days. [facility] tamsulosin (FLOMAX) 0.4 mg Cap 24 hr capsule 2022-07 00:00: 00 06-22 23:59 :00 No .4mg QD Take 1 capsule (0.4 mg total) by mouth daily for 5 days. [facility] tamsulosin (FLOMAX) 0.4 mg Cap 24 hr capsule 2022-07 00:00: 00 06-22 23:59 :00 No .4mg QD Take 1 capsule (0.4 mg total) by mouth daily for 5 days. [facility] tamsulosin (FLOMAX) 0.4 mg Cap 24 hr capsule 2022-07 00:00: 00 06-22 23:59 :00 No .4mg QD Take 1 capsule (0.4 mg total) by mouth daily for 5 days. [facility] tamsulosin (FLOMAX) 0.4 mg Cap 24 hr capsule 2022-07 00:00: 00 06-22 23:59 :00 No .4mg QD Take 1 capsule (0.4 mg total) by mouth daily for 5 days. [facility] tamsulosin (FLOMAX) 0.4 mg Cap 24 hr capsule 2022-07 00:00: 00 06-22 23:59 :00 No .4mg QD Take 1 capsule (0.4 mg total) by mouth daily for 5 days. [facility] tamsulosin (FLOMAX) 0.4 mg Cap 24 hr capsule 2022-07 00:00: 00 06-22 23:59 :00 No .4mg QD Take 1 capsule (0.4 mg total) by mouth daily for 5 days. [facility] metoprolol succinate (TOPROL-XL) 25 MG 24 hr tablet 2022-07 19:45: 32 Yes 25mg QD Take 1 tablet (25 mg total) by mouth daily. [facility] varenicline (CHANTIX) 1 mg tablet 2022-07 19:45: 32 Yes 1mg Q.5D Take 1 tablet (1 mg total) by mouth 2 (two) times daily Give with meals and with a full glass of water.. [facility] albuterol HFA (VENTOLIN HFA) 90 mcg/actuati on inhaler 2022-07 19:45: 32 Yes 1{puff} Inhale 1 puff by mouth via inhaler every 6 (six) hours as needed for Wheezing. [facility] fluticasone -umeclidin- vilanter (Trelegy Ellipta) 200-62.5-25 mcg DsDv 2022-07 19:45: 32 Yes QD Inhale by mouth via inhaler daily. [facility] atorvastati n (LIPITOR) 20 MG tablet 2022-07 19:45: 32 Yes 20mg QD Take 1 tablet (20 mg total) by mouth daily. [facility] metoprolol succinate (TOPROL-XL) 25 MG 24 hr tablet 2022-07 19:45: 32 Yes 25mg QD Take 1 tablet (25 mg total) by mouth daily. [facility] varenicline (CHANTIX) 1 mg tablet 2022-07 19:45: 32 Yes 1mg Q.5D Take 1 tablet (1 mg total) by mouth 2 (two) times daily Give with meals and with a full glass of water.. [facility] albuterol HFA (VENTOLIN HFA) 90 mcg/actuati on inhaler 2022-07 19:45: 32 Yes 1{puff} Inhale 1 puff by mouth via inhaler every 6 (six) hours as needed for Wheezing. [facility] fluticasone -umeclidin- vilanter (Trelegy Ellipta) 200-62.5-25 mcg DsDv 2022-07 19:45: 32 Yes QD Inhale by mouth via inhaler daily. [facility] atorvastati n (LIPITOR) 20 MG tablet 2022-07 19:45: 32 Yes 20mg QD Take 1 tablet (20 mg total) by mouth daily. [facility] metoprolol succinate (TOPROL-XL) 25 MG 24 hr tablet 2022-07 19:45: 32 Yes 25mg QD Take 1 tablet (25 mg total) by mouth daily. [facility] varenicline (CHANTIX) 1 mg tablet 2022-07 19:45: 32 Yes 1mg Q.5D Take 1 tablet (1 mg total) by mouth 2 (two) times daily Give with meals and with a full glass of water.. [facility] albuterol HFA (VENTOLIN HFA) 90 mcg/actuati on inhaler 2022-07 19:45: 32 Yes 1{puff} Inhale 1 puff by mouth via inhaler every 6 (six) hours as needed for Wheezing. [facility] fluticasone -umeclidin- vilanter (Trelegy Ellipta) 200-62.5-25 mcg DsDv 2022-07 19:45: 32 Yes QD Inhale by mouth via inhaler daily. [facility] atorvastati n (LIPITOR) 20 MG tablet 2022-07 19:45: 32 Yes 20mg QD Take 1 tablet (20 mg total) by mouth daily. [facility] metoprolol succinate (TOPROL-XL) 25 MG 24 hr tablet 2022-07 19:45: 32 Yes 25mg QD Take 1 tablet (25 mg total) by mouth daily. [facility] varenicline (CHANTIX) 1 mg tablet 2022-07 19:45: 32 Yes 1mg Q.5D Take 1 tablet (1 mg total) by mouth 2 (two) times daily Give with meals and with a full glass of water.. [facility] albuterol HFA (VENTOLIN HFA) 90 mcg/actuati on inhaler 2022-07 19:45: 32 Yes 1{puff} Inhale 1 puff by mouth via inhaler every 6 (six) hours as needed for Wheezing. [facility] fluticasone -umeclidin- vilanter (Trelegy Ellipta) 200-62.5-25 mcg DsDv 2022-07 19:45: 32 Yes QD Inhale by mouth via inhaler daily. [facility] atorvastati n (LIPITOR) 20 MG tablet 2022-07 19:45: 32 Yes 20mg QD Take 1 tablet (20 mg total) by mouth daily. [facility] metoprolol succinate (TOPROL-XL) 25 MG 24 hr tablet 2022-07 19:45: 32 Yes 25mg QD Take 1 tablet (25 mg total) by mouth daily. [facility] varenicline (CHANTIX) 1 mg tablet 2022-07 19:45: 32 Yes 1mg Q.5D Take 1 tablet (1 mg total) by mouth 2 (two) times daily Give with meals and with a full glass of water.. [facility] albuterol HFA (VENTOLIN HFA) 90 mcg/actuati on inhaler 2022-07 19:45: 32 Yes 1{puff} Inhale 1 puff by mouth via inhaler every 6 (six) hours as needed for Wheezing. [facility] fluticasone -umeclidin- vilanter (Trelegy Ellipta) 200-62.5-25 mcg DsDv 2022-07 19:45: 32 Yes QD Inhale by mouth via inhaler daily. [facility] atorvastati n (LIPITOR) 20 MG tablet 2022-07 19:45: 32 Yes 20mg QD Take 1 tablet (20 mg total) by mouth daily. [facility] metoprolol succinate (TOPROL-XL) 25 MG 24 hr tablet 2022-07 19:45: 32 Yes 25mg QD Take 1 tablet (25 mg total) by mouth daily. [facility] varenicline (CHANTIX) 1 mg tablet 2022-07 19:45: 32 Yes 1mg Q.5D Take 1 tablet (1 mg total) by mouth 2 (two) times daily Give with meals and with a full glass of water.. [facility] albuterol HFA (VENTOLIN HFA) 90 mcg/actuati on inhaler 2022-07 19:45: 32 Yes 1{puff} Inhale 1 puff by mouth via inhaler every 6 (six) hours as needed for Wheezing. [facility] fluticasone -umeclidin- vilanter (Trelegy Ellipta) 200-62.5-25 mcg DsDv 2022-07 19:45: 32 Yes QD Inhale by mouth via inhaler daily. [facility] atorvastati n (LIPITOR) 20 MG tablet 2022-07 19:45: 32 Yes 20mg QD Take 1 tablet (20 mg total) by mouth daily. [facility] metoprolol succinate (TOPROL-XL) 25 MG 24 hr tablet 2022-07 19:45: 32 Yes 25mg QD Take 1 tablet (25 mg total) by mouth daily. [facility] varenicline (CHANTIX) 1 mg tablet 2022-07 19:45: 32 Yes 1mg Q.5D Take 1 tablet (1 mg total) by mouth 2 (two) times daily Give with meals and with a full glass of water.. [facility] albuterol HFA (VENTOLIN HFA) 90 mcg/actuati on inhaler 2022-07 19:45: 32 Yes 1{puff} Inhale 1 puff by mouth via inhaler every 6 (six) hours as needed for Wheezing. [facility] fluticasone -umeclidin- vilanter (Trelegy Ellipta) 200-62.5-25 mcg DsDv 2022-07 19:45: 32 Yes QD Inhale by mouth via inhaler daily. [facility] atorvastati n (LIPITOR) 20 MG tablet 2022-07 19:45: 32 Yes 20mg QD Take 1 tablet (20 mg total) by mouth daily. [facility] metoprolol succinate (TOPROL-XL) 25 MG 24 hr tablet 2022-07 19:45: 32 Yes 25mg QD Take 1 tablet (25 mg total) by mouth daily. [facility] varenicline (CHANTIX) 1 mg tablet 2022-07 19:45: 32 Yes 1mg Q.5D Take 1 tablet (1 mg total) by mouth 2 (two) times daily Give with meals and with a full glass of water.. [facility] albuterol HFA (VENTOLIN HFA) 90 mcg/actuati on inhaler 2022-07 19:45: 32 Yes 1{puff} Inhale 1 puff by mouth via inhaler every 6 (six) hours as needed for Wheezing. [facility] fluticasone -umeclidin- vilanter (Trelegy Ellipta) 200-62.5-25 mcg DsDv 2022-07 19:45: 32 Yes QD Inhale by mouth via inhaler daily. [facility] atorvastati n (LIPITOR) 20 MG tablet 2022-07 19:45: 32 Yes 20mg QD Take 1 tablet (20 mg total) by mouth daily. [facility] metoprolol succinate (TOPROL-XL) 25 MG 24 hr tablet 2022-07 19:45: 32 Yes 25mg QD Take 1 tablet (25 mg total) by mouth daily. [facility] varenicline (CHANTIX) 1 mg tablet 2022-07 19:45: 32 Yes 1mg Q.5D Take 1 tablet (1 mg total) by mouth 2 (two) times daily Give with meals and with a full glass of water.. [facility] albuterol HFA (VENTOLIN HFA) 90 mcg/actuati on inhaler 2022-07 19:45: 32 Yes 1{puff} Inhale 1 puff by mouth via inhaler every 6 (six) hours as needed for Wheezing. [facility] fluticasone -umeclidin- vilanter (Trelegy Ellipta) 200-62.5-25 mcg DsDv 2022-07 19:45: 32 Yes QD Inhale by mouth via inhaler daily. [facility] atorvastati n (LIPITOR) 20 MG tablet 2022-07 19:45: 32 Yes 20mg QD Take 1 tablet (20 mg total) by mouth daily. [facility] metoprolol succinate (TOPROL-XL) 25 MG 24 hr tablet 2022-07 19:45: 32 Yes 25mg QD Take 1 tablet (25 mg total) by mouth daily. [facility] varenicline (CHANTIX) 1 mg tablet 2022-07 19:45: 32 Yes 1mg Q.5D Take 1 tablet (1 mg total) by mouth 2 (two) times daily Give with meals and with a full glass of water.. [facility] albuterol HFA (VENTOLIN HFA) 90 mcg/actuati on inhaler 2022-07 19:45: 32 Yes 1{puff} Inhale 1 puff by mouth via inhaler every 6 (six) hours as needed for Wheezing. [facility] fluticasone -umeclidin- vilanter (Trelegy Ellipta) 200-62.5-25 mcg DsDv 2022-07 19:45: 32 Yes QD Inhale by mouth via inhaler daily. [facility] atorvastati n (LIPITOR) 20 MG tablet 2022-07 19:45: 32 Yes 20mg QD Take 1 tablet (20 mg total) by mouth daily. [facility] metoprolol succinate (TOPROL-XL) 25 MG 24 hr tablet 2022-07 19:45: 32 Yes 25mg QD Take 1 tablet (25 mg total) by mouth daily. [facility] varenicline (CHANTIX) 1 mg tablet 2022-07 19:45: 32 Yes 1mg Q.5D Take 1 tablet (1 mg total) by mouth 2 (two) times daily Give with meals and with a full glass of water.. [facility] albuterol HFA (VENTOLIN HFA) 90 mcg/actuati on inhaler 2022-07 19:45: 32 Yes 1{puff} Inhale 1 puff by mouth via inhaler every 6 (six) hours as needed for Wheezing. [facility] fluticasone -umeclidin- vilanter (Trelegy Ellipta) 200-62.5-25 mcg DsDv 2022-07 19:45: 32 Yes QD Inhale by mouth via inhaler daily. [facility] atorvastati n (LIPITOR) 20 MG tablet 2022-07 19:45: 32 Yes 20mg QD Take 1 tablet (20 mg total) by mouth daily. [facility] metoprolol succinate (TOPROL-XL) 25 MG 24 hr tablet 2022-07 19:45: 32 Yes 25mg QD Take 1 tablet (25 mg total) by mouth daily. [facility] varenicline (CHANTIX) 1 mg tablet 2022-07 19:45: 32 Yes 1mg Q.5D Take 1 tablet (1 mg total) by mouth 2 (two) times daily Give with meals and with a full glass of water.. [facility] albuterol HFA (VENTOLIN HFA) 90 mcg/actuati on inhaler 2022-07 19:45: 32 Yes 1{puff} Inhale 1 puff by mouth via inhaler every 6 (six) hours as needed for Wheezing. [facility] fluticasone -umeclidin- vilanter (Trelegy Ellipta) 200-62.5-25 mcg DsDv 2022-07 19:45: 32 Yes QD Inhale by mouth via inhaler daily. [facility] atorvastati n (LIPITOR) 20 MG tablet 2022-07 19:45: 32 Yes 20mg QD Take 1 tablet (20 mg total) by mouth daily. [facility] metoprolol succinate (TOPROL-XL) 25 MG 24 hr tablet 2022-07 19:45: 32 Yes 25mg QD Take 1 tablet (25 mg total) by mouth daily. [facility] varenicline (CHANTIX) 1 mg tablet 2022-07 19:45: 32 Yes 1mg Q.5D Take 1 tablet (1 mg total) by mouth 2 (two) times daily Give with meals and with a full glass of water.. [facility] albuterol HFA (VENTOLIN HFA) 90 mcg/actuati on inhaler 2022-07 19:45: 32 Yes 1{puff} Inhale 1 puff by mouth via inhaler every 6 (six) hours as needed for Wheezing. [facility] fluticasone -umeclidin- vilanter (Trelegy Ellipta) 200-62.5-25 mcg DsDv 2022-07 19:45: 32 Yes QD Inhale by mouth via inhaler daily. [facility] atorvastati n (LIPITOR) 20 MG tablet 2022-07 19:45: 32 Yes 20mg QD Take 1 tablet (20 mg total) by mouth daily. [facility] metoprolol succinate (TOPROL-XL) 25 MG 24 hr tablet 2022-07 19:45: 32 Yes 25mg QD Take 1 tablet (25 mg total) by mouth daily. [facility] varenicline (CHANTIX) 1 mg tablet 2022-07 19:45: 32 Yes 1mg Q.5D Take 1 tablet (1 mg total) by mouth 2 (two) times daily Give with meals and with a full glass of water.. [facility] albuterol HFA (VENTOLIN HFA) 90 mcg/actuati on inhaler 2022-07 19:45: 32 Yes 1{puff} Inhale 1 puff by mouth via inhaler every 6 (six) hours as needed for Wheezing. [facility] fluticasone -umeclidin- vilanter (Trelegy Ellipta) 200-62.5-25 mcg DsDv 2022-07 19:45: 32 Yes QD Inhale by mouth via inhaler daily. [facility] atorvastati n (LIPITOR) 20 MG tablet 2022-07 19:45: 32 Yes 20mg QD Take 1 tablet (20 mg total) by mouth daily. [facility] metoprolol succinate (TOPROL-XL) 25 MG 24 hr tablet 2022-07 19:45: 32 Yes 25mg QD Take 1 tablet (25 mg total) by mouth daily. [facility] varenicline (CHANTIX) 1 mg tablet 2022-07 19:45: 32 Yes 1mg Q.5D Take 1 tablet (1 mg total) by mouth 2 (two) times daily Give with meals and with a full glass of water.. [facility] albuterol HFA (VENTOLIN HFA) 90 mcg/actuati on inhaler 2022-07 19:45: 32 Yes 1{puff} Inhale 1 puff by mouth via inhaler every 6 (six) hours as needed for Wheezing. [facility] fluticasone -umeclidin- vilanter (Trelegy Ellipta) 200-62.5-25 mcg DsDv 2022-07 19:45: 32 Yes QD Inhale by mouth via inhaler daily. [facility] atorvastati n (LIPITOR) 20 MG tablet 2022-07 19:45: 32 Yes 20mg QD Take 1 tablet (20 mg total) by mouth daily. [facility] metoprolol succinate (TOPROL-XL) 25 MG 24 hr tablet 2022-07 19:45: 32 Yes 25mg QD Take 1 tablet (25 mg total) by mouth daily. [facility] varenicline (CHANTIX) 1 mg tablet 2022-07 19:45: 32 Yes 1mg Q.5D Take 1 tablet (1 mg total) by mouth 2 (two) times daily Give with meals and with a full glass of water.. [facility] albuterol HFA (VENTOLIN HFA) 90 mcg/actuati on inhaler 2022-07 19:45: 32 Yes 1{puff} Inhale 1 puff by mouth via inhaler every 6 (six) hours as needed for Wheezing. [facility] fluticasone -umeclidin- vilanter (Trelegy Ellipta) 200-62.5-25 mcg DsDv 2022-07 19:45: 32 Yes QD Inhale by mouth via inhaler daily. [facility] atorvastati n (LIPITOR) 20 MG tablet 2022-07 19:45: 32 Yes 20mg QD Take 1 tablet (20 mg total) by mouth daily. [facility] metoprolol succinate (TOPROL-XL) 25 MG 24 hr tablet 2022-07 19:45: 32 Yes 25mg QD Take 1 tablet (25 mg total) by mouth daily. [facility] varenicline (CHANTIX) 1 mg tablet 2022-07 19:45: 32 Yes 1mg Q.5D Take 1 tablet (1 mg total) by mouth 2 (two) times daily Give with meals and with a full glass of water.. [facility] albuterol HFA (VENTOLIN HFA) 90 mcg/actuati on inhaler 2022-07 19:45: 32 Yes 1{puff} Inhale 1 puff by mouth via inhaler every 6 (six) hours as needed for Wheezing. [facility] fluticasone -umeclidin- vilanter (Trelegy Ellipta) 200-62.5-25 mcg DsDv 2022-07 19:45: 32 Yes QD Inhale by mouth via inhaler daily. [facility] atorvastati n (LIPITOR) 20 MG tablet 2022-07 19:45: 32 Yes 20mg QD Take 1 tablet (20 mg total) by mouth daily. [facility] metoprolol succinate (TOPROL-XL) 25 MG 24 hr tablet 2022-07 19:45: 32 Yes 25mg QD Take 1 tablet (25 mg total) by mouth daily. [facility] varenicline (CHANTIX) 1 mg tablet 2022-07 19:45: 32 Yes 1mg Q.5D Take 1 tablet (1 mg total) by mouth 2 (two) times daily Give with meals and with a full glass of water.. [facility] albuterol HFA (VENTOLIN HFA) 90 mcg/actuati on inhaler 2022-07 19:45: 32 Yes 1{puff} Inhale 1 puff by mouth via inhaler every 6 (six) hours as needed for Wheezing. [facility] fluticasone -umeclidin- vilanter (Trelegy Ellipta) 200-62.5-25 mcg DsDv 2022-07 19:45: 32 Yes QD Inhale by mouth via inhaler daily. [facility] atorvastati n (LIPITOR) 20 MG tablet 2022-07 19:45: 32 Yes 20mg QD Take 1 tablet (20 mg total) by mouth daily. [facility] metoprolol succinate (TOPROL-XL) 25 MG 24 hr tablet 2022-07 19:45: 32 Yes 25mg QD Take 1 tablet (25 mg total) by mouth daily. [facility] varenicline (CHANTIX) 1 mg tablet 2022-07 19:45: 32 Yes 1mg Q.5D Take 1 tablet (1 mg total) by mouth 2 (two) times daily Give with meals and with a full glass of water.. [facility] albuterol HFA (VENTOLIN HFA) 90 mcg/actuati on inhaler 2022-07 19:45: 32 Yes 1{puff} Inhale 1 puff by mouth via inhaler every 6 (six) hours as needed for Wheezing. [facility] fluticasone -umeclidin- vilanter (Trelegy Ellipta) 200-62.5-25 mcg DsDv 2022-07 19:45: 32 Yes QD Inhale by mouth via inhaler daily. [facility] atorvastati n (LIPITOR) 20 MG tablet 2022-07 19:45: 32 Yes 20mg QD Take 1 tablet (20 mg total) by mouth daily. [facility] metoprolol succinate (TOPROL-XL) 25 MG 24 hr tablet 2022-07 19:45: 32 Yes 25mg QD Take 1 tablet (25 mg total) by mouth daily. [facility] varenicline (CHANTIX) 1 mg tablet 2022-07 19:45: 32 Yes 1mg Q.5D Take 1 tablet (1 mg total) by mouth 2 (two) times daily Give with meals and with a full glass of water.. [facility] albuterol HFA (VENTOLIN HFA) 90 mcg/actuati on inhaler 2022-07 19:45: 32 Yes 1{puff} Inhale 1 puff by mouth via inhaler every 6 (six) hours as needed for Wheezing. [facility] fluticasone -umeclidin- vilanter (Trelegy Ellipta) 200-62.5-25 mcg DsDv 2022-07 19:45: 32 Yes QD Inhale by mouth via inhaler daily. [facility] atorvastati n (LIPITOR) 20 MG tablet 2022-07 19:45: 32 Yes 20mg QD Take 1 tablet (20 mg total) by mouth daily. [facility] metoprolol succinate (TOPROL-XL) 25 MG 24 hr tablet 2022-07 19:45: 32 Yes 25mg QD Take 1 tablet (25 mg total) by mouth daily. [facility] varenicline (CHANTIX) 1 mg tablet 2022-07 19:45: 32 Yes 1mg Q.5D Take 1 tablet (1 mg total) by mouth 2 (two) times daily Give with meals and with a full glass of water.. [facility] albuterol HFA (VENTOLIN HFA) 90 mcg/actuati on inhaler 2022-07 19:45: 32 Yes 1{puff} Inhale 1 puff by mouth via inhaler every 6 (six) hours as needed for Wheezing. [facility] fluticasone -umeclidin- vilanter (Trelegy Ellipta) 200-62.5-25 mcg DsDv 2022-07 19:45: 32 Yes QD Inhale by mouth via inhaler daily. [facility] atorvastati n (LIPITOR) 20 MG tablet 2022-07 19:45: 32 Yes 20mg QD Take 1 tablet (20 mg total) by mouth daily. [facility] metoprolol succinate (TOPROL-XL) 25 MG 24 hr tablet 2022-07 19:45: 32 Yes 25mg QD Take 1 tablet (25 mg total) by mouth daily. [facility] varenicline (CHANTIX) 1 mg tablet 2022-07 19:45: 32 Yes 1mg Q.5D Take 1 tablet (1 mg total) by mouth 2 (two) times daily Give with meals and with a full glass of water.. [facility] albuterol HFA (VENTOLIN HFA) 90 mcg/actuati on inhaler 2022-07 19:45: 32 Yes 1{puff} Inhale 1 puff by mouth via inhaler every 6 (six) hours as needed for Wheezing. [facility] fluticasone -umeclidin- vilanter (Trelegy Ellipta) 200-62.5-25 mcg DsDv 2022-07 19:45: 32 Yes QD Inhale by mouth via inhaler daily. [facility] atorvastati n (LIPITOR) 20 MG tablet 2022-07 19:45: 32 Yes 20mg QD Take 1 tablet (20 mg total) by mouth daily. [facility] metoprolol succinate (TOPROL-XL) 25 MG 24 hr tablet 2022-07 19:45: 32 Yes 25mg QD Take 1 tablet (25 mg total) by mouth daily. [facility] varenicline (CHANTIX) 1 mg tablet 2022-07 19:45: 32 Yes 1mg Q.5D Take 1 tablet (1 mg total) by mouth 2 (two) times daily Give with meals and with a full glass of water.. [facility] albuterol HFA (VENTOLIN HFA) 90 mcg/actuati on inhaler 2022-07 19:45: 32 Yes 1{puff} Inhale 1 puff by mouth via inhaler every 6 (six) hours as needed for Wheezing. [facility] fluticasone -umeclidin- vilanter (Trelegy Ellipta) 200-62.5-25 mcg DsDv 2022-07 19:45: 32 Yes QD Inhale by mouth via inhaler daily. [facility] atorvastati n (LIPITOR) 20 MG tablet 2022-07 19:45: 32 Yes 20mg QD Take 1 tablet (20 mg total) by mouth daily. [facility] acetaminoph en-codeine (TYLENOL #3) 300-30 mg per tablet 2022-07 18:02: 00 06-16 00:00 :00 No 1{tbl} Take 1 tablet by mouth every 4 (four) hours as needed for Pain. [facility] acetaminoph en-codeine (TYLENOL #3) 300-30 mg per tablet 2022-07 18:02: 00 06-16 00:00 :00 No 1{tbl} Take 1 tablet by mouth every 4 (four) hours as needed for Pain. [facility] acetaminoph en-codeine (TYLENOL #3) 300-30 mg per tablet 2022-07 18:02: 00 06-16 00:00 :00 No 1{tbl} Take 1 tablet by mouth every 4 (four) hours as needed for Pain. [facility] acetaminoph en-codeine (TYLENOL #3) 300-30 mg per tablet 2022-07 18:02: 00 06-16 00:00 :00 No 1{tbl} Take 1 tablet by mouth every 4 (four) hours as needed for Pain. [facility] acetaminoph en-codeine (TYLENOL #3) 300-30 mg per tablet 2022-07 18:02: 00 06-16 00:00 :00 No 1{tbl} Take 1 tablet by mouth every 4 (four) hours as needed for Pain. [facility] acetaminoph en-codeine (TYLENOL #3) 300-30 mg per tablet 2022-07 18:02: 00 06-16 00:00 :00 No 1{tbl} Take 1 tablet by mouth every 4 (four) hours as needed for Pain. [facility] acetaminoph en-codeine (TYLENOL #3) 300-30 mg per tablet 2022-07 18:02: 00 06-16 00:00 :00 No 1{tbl} Take 1 tablet by mouth every 4 (four) hours as needed for Pain. [facility] acetaminoph en-codeine (TYLENOL #3) 300-30 mg per tablet 2022-07 18:02: 00 06-16 00:00 :00 No 1{tbl} Take 1 tablet by mouth every 4 (four) hours as needed for Pain. [facility] acetaminoph en-codeine (TYLENOL #3) 300-30 mg per tablet 2022-07 18:02: 00 06-16 00:00 :00 No 1{tbl} Take 1 tablet by mouth every 4 (four) hours as needed for Pain. [facility] acetaminoph en-codeine (TYLENOL #3) 300-30 mg per tablet 2022-07 18:02: 00 06-16 00:00 :00 No 1{tbl} Take 1 tablet by mouth every 4 (four) hours as needed for Pain. [facility] acetaminoph en-codeine (TYLENOL #3) 300-30 mg per tablet 2022-07 18:02: 00 06-16 00:00 :00 No 1{tbl} Take 1 tablet by mouth every 4 (four) hours as needed for Pain. [facility] acetaminoph en-codeine (TYLENOL #3) 300-30 mg per tablet 2022-07 18:02: 00 06-16 00:00 :00 No 1{tbl} Take 1 tablet by mouth every 4 (four) hours as needed for Pain. [facility] acetaminoph en-codeine (TYLENOL #3) 300-30 mg per tablet 2022-07 18:02: 00 06-16 00:00 :00 No 1{tbl} Take 1 tablet by mouth every 4 (four) hours as needed for Pain. [facility] acetaminoph en-codeine (TYLENOL #3) 300-30 mg per tablet 2022-07 18:02: 00 06-16 00:00 :00 No 1{tbl} Take 1 tablet by mouth every 4 (four) hours as needed for Pain. [facility] acetaminoph en-codeine (TYLENOL #3) 300-30 mg per tablet 2022-07 18:02: 00 06-16 00:00 :00 No 1{tbl} Take 1 tablet by mouth every 4 (four) hours as needed for Pain. [facility] acetaminoph en-codeine (TYLENOL #3) 300-30 mg per tablet 2022-07 18:02: 00 06-16 00:00 :00 No 1{tbl} Take 1 tablet by mouth every 4 (four) hours as needed for Pain. [facility] acetaminoph en-codeine (TYLENOL #3) 300-30 mg per tablet 2022-07 18:02: 00 06-16 00:00 :00 No 1{tbl} Take 1 tablet by mouth every 4 (four) hours as needed for Pain. [facility] acetaminoph en-codeine (TYLENOL #3) 300-30 mg per tablet 2022-07 18:02: 00 06-16 00:00 :00 No 1{tbl} Take 1 tablet by mouth every 4 (four) hours as needed for Pain. [facility] acetaminoph en-codeine (TYLENOL #3) 300-30 mg per tablet 2022-07 18:02: 00 06-16 00:00 :00 No 1{tbl} Take 1 tablet by mouth every 4 (four) hours as needed for Pain. [facility] acetaminoph en-codeine (TYLENOL #3) 300-30 mg per tablet 2022-07 18:02: 00 06-16 00:00 :00 No 1{tbl} Take 1 tablet by mouth every 4 (four) hours as needed for Pain. [facility] acetaminoph en-codeine (TYLENOL #3) 300-30 mg per tablet 2022-07 18:02: 00 06-16 00:00 :00 No 1{tbl} Take 1 tablet by mouth every 4 (four) hours as needed for Pain. [facility] acetaminoph en-codeine (TYLENOL #3) 300-30 mg per tablet 2022-07 18:02: 00 06-16 00:00 :00 No 1{tbl} Take 1 tablet by mouth every 4 (four) hours as needed for Pain. [facility] acetaminoph en-codeine (TYLENOL #3) 300-30 mg per tablet 2022-07 18:02: 00 06-16 00:00 :00 No 1{tbl} Take 1 tablet by mouth every 4 (four) hours as needed for Pain. [facility] acetaminoph en-codeine (TYLENOL #3) 300-30 mg per tablet 2022-07 18:02: 00 06-16 00:00 :00 No 1{tbl} Take 1 tablet by mouth every 4 (four) hours as needed for Pain. [facility] acetaminoph en-codeine (TYLENOL #3) 300-30 mg per tablet 2022-07 18:02: 00 06-16 00:00 :00 No 1{tbl} Take 1 tablet by mouth every 4 (four) hours as needed for Pain. [facility] acetaminoph en-codeine (TYLENOL #3) 300-30 mg per tablet 2022-07 18:02: 00 06-16 00:00 :00 No 1{tbl} Take 1 tablet by mouth every 4 (four) hours as needed for Pain. [facility] DULoxetine (CYMBALTA) 30 MG capsule 2022-07 00:00: 00 09-14 23:59 :00 No 30mg QD Take 1 capsule (30 mg total) by mouth daily for 90 days. [facility] DULoxetine (CYMBALTA) 30 MG capsule 2022-07 00:00: 00 09-14 23:59 :00 No 30mg QD Take 1 capsule (30 mg total) by mouth daily for 90 days. [facility] DULoxetine (CYMBALTA) 30 MG capsule 2022-07 00:00: 00 09-14 23:59 :00 No 30mg QD Take 1 capsule (30 mg total) by mouth daily for 90 days. [facility] DULoxetine (CYMBALTA) 30 MG capsule 2022-07 00:00: 00 09-14 23:59 :00 No 30mg QD Take 1 capsule (30 mg total) by mouth daily for 90 days. [facility] DULoxetine (CYMBALTA) 30 MG capsule 2022-07 00:00: 00 09-14 23:59 :00 No 30mg QD Take 1 capsule (30 mg total) by mouth daily for 90 days. [facility] DULoxetine (CYMBALTA) 30 MG capsule 2022-07 00:00: 00 09-14 23:59 :00 No 30mg QD Take 1 capsule (30 mg total) by mouth daily for 90 days. [facility] DULoxetine (CYMBALTA) 30 MG capsule 2022-07 00:00: 00 09-14 23:59 :00 No 30mg QD Take 1 capsule (30 mg total) by mouth daily for 90 days. [facility] DULoxetine (CYMBALTA) 30 MG capsule 2022-07 00:00: 00 09-14 23:59 :00 No 30mg QD Take 1 capsule (30 mg total) by mouth daily for 90 days. [facility] DULoxetine (CYMBALTA) 30 MG capsule 2022-07 00:00: 00 09-14 23:59 :00 No 30mg QD Take 1 capsule (30 mg total) by mouth daily for 90 days. [facility] DULoxetine (CYMBALTA) 30 MG capsule 2022-07 00:00: 00 09-14 23:59 :00 No 30mg QD Take 1 capsule (30 mg total) by mouth daily for 90 days. [facility] DULoxetine (CYMBALTA) 30 MG capsule 2022-07 00:00: 00 09-14 23:59 :00 No 30mg QD Take 1 capsule (30 mg total) by mouth daily for 90 days. [facility] DULoxetine (CYMBALTA) 30 MG capsule 2022-07 00:00: 00 09-14 23:59 :00 No 30mg QD Take 1 capsule (30 mg total) by mouth daily for 90 days. [facility] DULoxetine (CYMBALTA) 30 MG capsule 2022-07 00:00: 00 09-14 23:59 :00 No 30mg QD Take 1 capsule (30 mg total) by mouth daily for 90 days. [facility] DULoxetine (CYMBALTA) 30 MG capsule 2022-07 00:00: 00 09-14 23:59 :00 No 30mg QD Take 1 capsule (30 mg total) by mouth daily for 90 days. [facility] DULoxetine (CYMBALTA) 30 MG capsule 2022-07 00:00: 00 09-14 23:59 :00 No 30mg QD Take 1 capsule (30 mg total) by mouth daily for 90 days. [facility] DULoxetine (CYMBALTA) 30 MG capsule 2022-07 00:00: 00 09-14 23:59 :00 No 30mg QD Take 1 capsule (30 mg total) by mouth daily for 90 days. [facility] DULoxetine (CYMBALTA) 30 MG capsule 2022-07 00:00: 00 09-14 23:59 :00 No 30mg QD Take 1 capsule (30 mg total) by mouth daily for 90 days. [facility] DULoxetine (CYMBALTA) 30 MG capsule 2022-07 00:00: 00 09-14 23:59 :00 No 30mg QD Take 1 capsule (30 mg total) by mouth daily for 90 days. [facility] DULoxetine (CYMBALTA) 30 MG capsule 2022-07 00:00: 00 09-14 23:59 :00 No 30mg QD Take 1 capsule (30 mg total) by mouth daily for 90 days. [facility] DULoxetine (CYMBALTA) 30 MG capsule 2022-07 00:00: 00 09-14 23:59 :00 No 30mg QD Take 1 capsule (30 mg total) by mouth daily for 90 days. [facility] DULoxetine (CYMBALTA) 30 MG capsule 2022-07 00:00: 00 09-14 23:59 :00 No 30mg QD Take 1 capsule (30 mg total) by mouth daily for 90 days. [facility] DULoxetine (CYMBALTA) 30 MG capsule 2022-07 00:00: 00 09-14 23:59 :00 No 30mg QD Take 1 capsule (30 mg total) by mouth daily for 90 days. [facility] DULoxetine (CYMBALTA) 30 MG capsule 2022-07 00:00: 00 09-14 23:59 :00 No 30mg QD Take 1 capsule (30 mg total) by mouth daily for 90 days. [facility] DULoxetine (CYMBALTA) 30 MG capsule 2022-07 00:00: 00 09-08 00:00 :00 No 30mg QD Take 1 capsule (30 mg total) by mouth daily for 90 days. [facility] DULoxetine (CYMBALTA) 30 MG capsule 2022-07 00:00: 00 09-08 00:00 :00 No 30mg QD Take 1 capsule (30 mg total) by mouth daily for 90 days. [facility] DULoxetine (CYMBALTA) 30 MG capsule 2022-07 00:00: 00 09-08 00:00 :00 No 30mg QD Take 1 capsule (30 mg total) by mouth daily for 90 days. [facility] metroNIDAZO LE (FLAGYL) 500 MG tablet 2022-07 00:00: 00 07-04 23:59 :00 No 500mg Take 1 tablet (500 mg total) by mouth every 8 (eight) hours for 18 days. [facility] ciprofloxac in HCl (CIPRO) 500 MG tablet 2022-07 00:00: 00 07-04 23:59 :00 No 500mg Q.5D Take 1 tablet (500 mg total) by mouth 2 (two) times daily for 18 days. [facility] metroNIDAZO LE (FLAGYL) 500 MG tablet 2022-07 00:00: 00 07-04 23:59 :00 No 500mg Take 1 tablet (500 mg total) by mouth every 8 (eight) hours for 18 days. [facility] ciprofloxac in HCl (CIPRO) 500 MG tablet 2022-07 00:00: 00 07-04 23:59 :00 No 500mg Q.5D Take 1 tablet (500 mg total) by mouth 2 (two) times daily for 18 days. [facility] metroNIDAZO LE (FLAGYL) 500 MG tablet 2022-07 00:00: 00 07-04 23:59 :00 No 500mg Take 1 tablet (500 mg total) by mouth every 8 (eight) hours for 18 days. [facility] ciprofloxac in HCl (CIPRO) 500 MG tablet 2022-07 00:00: 00 07-04 23:59 :00 No 500mg Q.5D Take 1 tablet (500 mg total) by mouth 2 (two) times daily for 18 days. [facility] metroNIDAZO LE (FLAGYL) 500 MG tablet 2022-07 00:00: 00 07-04 23:59 :00 No 500mg Take 1 tablet (500 mg total) by mouth every 8 (eight) hours for 18 days. [facility] ciprofloxac in HCl (CIPRO) 500 MG tablet 2022-07 00:00: 00 07-04 23:59 :00 No 500mg Q.5D Take 1 tablet (500 mg total) by mouth 2 (two) times daily for 18 days. [facility] metroNIDAZO LE (FLAGYL) 500 MG tablet 2022-07 00:00: 00 07-04 23:59 :00 No 500mg Take 1 tablet (500 mg total) by mouth every 8 (eight) hours for 18 days. [facility] ciprofloxac in HCl (CIPRO) 500 MG tablet 2022-07 00:00: 00 07-04 23:59 :00 No 500mg Q.5D Take 1 tablet (500 mg total) by mouth 2 (two) times daily for 18 days. [facility] metroNIDAZO LE (FLAGYL) 500 MG tablet 2022-07 00:00: 00 07-04 23:59 :00 No 500mg Take 1 tablet (500 mg total) by mouth every 8 (eight) hours for 18 days. [facility] ciprofloxac in HCl (CIPRO) 500 MG tablet 2022-07 00:00: 00 07-04 23:59 :00 No 500mg Q.5D Take 1 tablet (500 mg total) by mouth 2 (two) times daily for 18 days. [facility] metroNIDAZO LE (FLAGYL) 500 MG tablet 2022-07 00:00: 00 07-04 23:59 :00 No 500mg Take 1 tablet (500 mg total) by mouth every 8 (eight) hours for 18 days. [facility] ciprofloxac in HCl (CIPRO) 500 MG tablet 2022-07 00:00: 00 07-04 23:59 :00 No 500mg Q.5D Take 1 tablet (500 mg total) by mouth 2 (two) times daily for 18 days. [facility] metroNIDAZO LE (FLAGYL) 500 MG tablet 2022-07 00:00: 00 07-04 23:59 :00 No 500mg Take 1 tablet (500 mg total) by mouth every 8 (eight) hours for 18 days. [facility] ciprofloxac in HCl (CIPRO) 500 MG tablet 2022-07 00:00: 00 07-04 23:59 :00 No 500mg Q.5D Take 1 tablet (500 mg total) by mouth 2 (two) times daily for 18 days. [facility] metroNIDAZO LE (FLAGYL) 500 MG tablet 2022-07 00:00: 00 07-04 23:59 :00 No 500mg Take 1 tablet (500 mg total) by mouth every 8 (eight) hours for 18 days. [facility] ciprofloxac in HCl (CIPRO) 500 MG tablet 2022-07 00:00: 00 07-04 23:59 :00 No 500mg Q.5D Take 1 tablet (500 mg total) by mouth 2 (two) times daily for 18 days. [facility] metroNIDAZO LE (FLAGYL) 500 MG tablet 2022-07 00:00: 00 07-04 23:59 :00 No 500mg Take 1 tablet (500 mg total) by mouth every 8 (eight) hours for 18 days. [facility] ciprofloxac in HCl (CIPRO) 500 MG tablet 2022-07 00:00: 00 07-04 23:59 :00 No 500mg Q.5D Take 1 tablet (500 mg total) by mouth 2 (two) times daily for 18 days. [facility] metroNIDAZO LE (FLAGYL) 500 MG tablet 2022-07 00:00: 00 07-04 23:59 :00 No 500mg Take 1 tablet (500 mg total) by mouth every 8 (eight) hours for 18 days. [facility] ciprofloxac in HCl (CIPRO) 500 MG tablet 2022-07 00:00: 00 07-04 23:59 :00 No 500mg Q.5D Take 1 tablet (500 mg total) by mouth 2 (two) times daily for 18 days. [facility] metroNIDAZO LE (FLAGYL) 500 MG tablet 2022-07 00:00: 00 07-04 23:59 :00 No 500mg Take 1 tablet (500 mg total) by mouth every 8 (eight) hours for 18 days. [facility] ciprofloxac in HCl (CIPRO) 500 MG tablet 2022-07 00:00: 00 07-04 23:59 :00 No 500mg Q.5D Take 1 tablet (500 mg total) by mouth 2 (two) times daily for 18 days. [facility] metroNIDAZO LE (FLAGYL) 500 MG tablet 2022-07 00:00: 00 07-04 23:59 :00 No 500mg Take 1 tablet (500 mg total) by mouth every 8 (eight) hours for 18 days. [facility] ciprofloxac in HCl (CIPRO) 500 MG tablet 2022-07 00:00: 00 07-04 23:59 :00 No 500mg Q.5D Take 1 tablet (500 mg total) by mouth 2 (two) times daily for 18 days. [facility] metroNIDAZO LE (FLAGYL) 500 MG tablet 2022-07 00:00: 00 07-04 23:59 :00 No 500mg Take 1 tablet (500 mg total) by mouth every 8 (eight) hours for 18 days. [facility] ciprofloxac in HCl (CIPRO) 500 MG tablet 2022-07 00:00: 00 07-04 23:59 :00 No 500mg Q.5D Take 1 tablet (500 mg total) by mouth 2 (two) times daily for 18 days. [facility] metroNIDAZO LE (FLAGYL) 500 MG tablet 2022-07 00:00: 00 07-04 23:59 :00 No 500mg Take 1 tablet (500 mg total) by mouth every 8 (eight) hours for 18 days. [facility] ciprofloxac in HCl (CIPRO) 500 MG tablet 2022-07 00:00: 00 07-04 23:59 :00 No 500mg Q.5D Take 1 tablet (500 mg total) by mouth 2 (two) times daily for 18 days. [facility] metroNIDAZO LE (FLAGYL) 500 MG tablet 2022-07 00:00: 00 07-04 23:59 :00 No 500mg Take 1 tablet (500 mg total) by mouth every 8 (eight) hours for 18 days. [facility] ciprofloxac in HCl (CIPRO) 500 MG tablet 2022-07 00:00: 00 07-04 23:59 :00 No 500mg Q.5D Take 1 tablet (500 mg total) by mouth 2 (two) times daily for 18 days. [facility] metroNIDAZO LE (FLAGYL) 500 MG tablet 2022-07 00:00: 00 07-04 23:59 :00 No 500mg Take 1 tablet (500 mg total) by mouth every 8 (eight) hours for 18 days. [facility] ciprofloxac in HCl (CIPRO) 500 MG tablet 2022-07 00:00: 00 07-04 23:59 :00 No 500mg Q.5D Take 1 tablet (500 mg total) by mouth 2 (two) times daily for 18 days. [facility] metroNIDAZO LE (FLAGYL) 500 MG tablet 2022-07 00:00: 00 07-04 23:59 :00 No 500mg Take 1 tablet (500 mg total) by mouth every 8 (eight) hours for 18 days. [facility] ciprofloxac in HCl (CIPRO) 500 MG tablet 2022-07 00:00: 00 07-04 23:59 :00 No 500mg Q.5D Take 1 tablet (500 mg total) by mouth 2 (two) times daily for 18 days. [facility] metroNIDAZO LE (FLAGYL) 500 MG tablet 2022-07 00:00: 00 07-04 23:59 :00 No 500mg Take 1 tablet (500 mg total) by mouth every 8 (eight) hours for 18 days. [facility] ciprofloxac in HCl (CIPRO) 500 MG tablet 2022-07 00:00: 00 07-04 23:59 :00 No 500mg Q.5D Take 1 tablet (500 mg total) by mouth 2 (two) times daily for 18 days. [facility] metroNIDAZO LE (FLAGYL) 500 MG tablet 2022-07 00:00: 00 07-04 23:59 :00 No 500mg Take 1 tablet (500 mg total) by mouth every 8 (eight) hours for 18 days. [facility] ciprofloxac in HCl (CIPRO) 500 MG tablet 2022-07 00:00: 00 07-04 23:59 :00 No 500mg Q.5D Take 1 tablet (500 mg total) by mouth 2 (two) times daily for 18 days. [facility] metroNIDAZO LE (FLAGYL) 500 MG tablet 2022-07 00:00: 00 07-04 23:59 :00 No 500mg Take 1 tablet (500 mg total) by mouth every 8 (eight) hours for 18 days. [facility] ciprofloxac in HCl (CIPRO) 500 MG tablet 2022-07 00:00: 00 07-04 23:59 :00 No 500mg Q.5D Take 1 tablet (500 mg total) by mouth 2 (two) times daily for 18 days. [facility] metroNIDAZO LE (FLAGYL) 500 MG tablet 2022-07 00:00: 00 07-04 23:59 :00 No 500mg Take 1 tablet (500 mg total) by mouth every 8 (eight) hours for 18 days. [facility] ciprofloxac in HCl (CIPRO) 500 MG tablet 2022-07 00:00: 00 07-04 23:59 :00 No 500mg Q.5D Take 1 tablet (500 mg total) by mouth 2 (two) times daily for 18 days. [place] [facility] metroNIDAZO LE (FLAGYL) 500 MG tablet 2022-07 00:00: 00 07-04 23:59 :00 No 500mg Take 1 tablet (500 mg total) by mouth every 8 (eight) hours for 18 days. [facility] ciprofloxac in HCl (CIPRO) 500 MG tablet 2022-07 00:00: 00 07-04 23:59 :00 No 500mg Q.5D Take 1 tablet (500 mg total) by mouth 2 (two) times daily for 18 days. [facility] metroNIDAZO LE (FLAGYL) 500 MG tablet 2022-07 00:00: 00 07-04 23:59 :00 No 500mg Take 1 tablet (500 mg total) by mouth every 8 (eight) hours for 18 days. [facility] ciprofloxac in HCl (CIPRO) 500 MG tablet 2022-07 00:00: 00 07-04 23:59 :00 No 500mg Q.5D Take 1 tablet (500 mg total) by mouth 2 (two) times daily for 18 days. [facility] metroNIDAZO LE (FLAGYL) 500 MG tablet 2022-07 00:00: 00 07-04 23:59 :00 No 500mg Take 1 tablet (500 mg total) by mouth every 8 (eight) hours for 18 days. [facility] ciprofloxac in HCl (CIPRO) 500 MG tablet 2022-07 00:00: 00 07-04 23:59 :00 No 500mg Q.5D Take 1 tablet (500 mg total) by mouth 2 (two) times daily for 18 days. [facility] metroNIDAZO LE (FLAGYL) 500 MG tablet 2022-07 00:00: 00 07-04 23:59 :00 No 500mg Take 1 tablet (500 mg total) by mouth every 8 (eight) hours for 18 days. [facility] ciprofloxac in HCl (CIPRO) 500 MG tablet 2022-07 00:00: 00 07-04 23:59 :00 No 500mg Q.5D Take 1 tablet (500 mg total) by mouth 2 (two) times daily for 18 days. [facility] cyclobenzap rine (FLEXERIL) 10 MG tablet 2022-07 00:00: 00 06-26 23:59 :00 No 10mg Q.[id number] 3D Take 1 tablet (10 mg total) by mouth 3 (three) times daily for 10 days. [facility] oxyCODONE (OXY-IR) 10 mg tablet 2022-07 00:00: 00 06-26 23:59 :00 No 10mg Take 1 tablet (10 mg total) by mouth every 8 (eight) hours as needed for up to 10 days. Max Daily Amount: 30 mg [facility] cyclobenzap rine (FLEXERIL) 10 MG tablet 2022-07 00:00: 00 06-26 23:59 :00 No 10mg Q.[id number] 3D Take 1 tablet (10 mg total) by mouth 3 (three) times daily for 10 days. [facility] oxyCODONE (OXY-IR) 10 mg tablet 2022-07 00:00: 00 06-26 23:59 :00 No 10mg Take 1 tablet (10 mg total) by mouth every 8 (eight) hours as needed for up to 10 days. Max Daily Amount: 30 mg [facility] cyclobenzap rine (FLEXERIL) 10 MG tablet 2022-07 00:00: 00 06-26 23:59 :00 No 10mg Q.[id number] 3D Take 1 tablet (10 mg total) by mouth 3 (three) times daily for 10 days. [facility] oxyCODONE (OXY-IR) 10 mg tablet 2022-07 00:00: 00 06-26 23:59 :00 No 10mg Take 1 tablet (10 mg total) by mouth every 8 (eight) hours as needed for up to 10 days. Max Daily Amount: 30 mg [facility] cyclobenzap rine (FLEXERIL) 10 MG tablet 2022-07 00:00: 00 06-26 23:59 :00 No 10mg Q.[id number] 3D Take 1 tablet (10 mg total) by mouth 3 (three) times daily for 10 days. [facility] oxyCODONE (OXY-IR) 10 mg tablet 2022-07 00:00: 00 06-26 23:59 :00 No 10mg Take 1 tablet (10 mg total) by mouth every 8 (eight) hours as needed for up to 10 days. Max Daily Amount: 30 mg [facility] cyclobenzap rine (FLEXERIL) 10 MG tablet 2022-07 00:00: 00 06-26 23:59 :00 No 10mg Q.[id number] 3D Take 1 tablet (10 mg total) by mouth 3 (three) times daily for 10 days. [facility] oxyCODONE (OXY-IR) 10 mg tablet 2022-07 00:00: 00 06-26 23:59 :00 No 10mg Take 1 tablet (10 mg total) by mouth every 8 (eight) hours as needed for up to 10 days. Max Daily Amount: 30 mg [facility] cyclobenzap rine (FLEXERIL) 10 MG tablet 2022-07 00:00: 00 06-26 23:59 :00 No 10mg Q.[id number] 3D Take 1 tablet (10 mg total) by mouth 3 (three) times daily for 10 days. [facility] oxyCODONE (OXY-IR) 10 mg tablet 2022-07 00:00: 00 06-26 23:59 :00 No 10mg Take 1 tablet (10 mg total) by mouth every 8 (eight) hours as needed for up to 10 days. Max Daily Amount: 30 mg [facility] cyclobenzap rine (FLEXERIL) 10 MG tablet 2022-07 00:00: 00 06-26 23:59 :00 No 10mg Q.[id number] 3D Take 1 tablet (10 mg total) by mouth 3 (three) times daily for 10 days. [facility] oxyCODONE (OXY-IR) 10 mg tablet 2022-07 00:00: 00 06-26 23:59 :00 No 10mg Take 1 tablet (10 mg total) by mouth every 8 (eight) hours as needed for up to 10 days. Max Daily Amount: 30 mg [facility] cyclobenzap rine (FLEXERIL) 10 MG tablet 2022-07 00:00: 00 06-26 23:59 :00 No 10mg Q.[id number] 3D Take 1 tablet (10 mg total) by mouth 3 (three) times daily for 10 days. [facility] oxyCODONE (OXY-IR) 10 mg tablet 2022-07 00:00: 00 06-26 23:59 :00 No 10mg Take 1 tablet (10 mg total) by mouth every 8 (eight) hours as needed for up to 10 days. Max Daily Amount: 30 mg [facility] cyclobenzap rine (FLEXERIL) 10 MG tablet 2022-07 00:00: 00 06-26 23:59 :00 No 10mg Q.[id number] 3D Take 1 tablet (10 mg total) by mouth 3 (three) times daily for 10 days. [facility] oxyCODONE (OXY-IR) 10 mg tablet 2022-07 00:00: 00 06-26 23:59 :00 No 10mg Take 1 tablet (10 mg total) by mouth every 8 (eight) hours as needed for up to 10 days. Max Daily Amount: 30 mg [facility] cyclobenzap rine (FLEXERIL) 10 MG tablet 2022-07 00:00: 00 06-26 23:59 :00 No 10mg Q.[id number] 3D Take 1 tablet (10 mg total) by mouth 3 (three) times daily for 10 days. [facility] oxyCODONE (OXY-IR) 10 mg tablet 2022-07 00:00: 00 06-26 23:59 :00 No 10mg Take 1 tablet (10 mg total) by mouth every 8 (eight) hours as needed for up to 10 days. Max Daily Amount: 30 mg [facility] cyclobenzap rine (FLEXERIL) 10 MG tablet 2022-07 00:00: 00 06-26 23:59 :00 No 10mg Q.[id number] 3D Take 1 tablet (10 mg total) by mouth 3 (three) times daily for 10 days. [facility] oxyCODONE (OXY-IR) 10 mg tablet 2022-07 00:00: 00 06-26 23:59 :00 No 10mg Take 1 tablet (10 mg total) by mouth every 8 (eight) hours as needed for up to 10 days. Max Daily Amount: 30 mg [facility] cyclobenzap rine (FLEXERIL) 10 MG tablet 2022-07 00:00: 00 06-26 23:59 :00 No 10mg Q.[id number] 3D Take 1 tablet (10 mg total) by mouth 3 (three) times daily for 10 days. [facility] oxyCODONE (OXY-IR) 10 mg tablet 2022-07 00:00: 00 06-26 23:59 :00 No 10mg Take 1 tablet (10 mg total) by mouth every 8 (eight) hours as needed for up to 10 days. Max Daily Amount: 30 mg [facility] cyclobenzap rine (FLEXERIL) 10 MG tablet 2022-07 00:00: 00 06-26 23:59 :00 No 10mg Q.[id number] 3D Take 1 tablet (10 mg total) by mouth 3 (three) times daily for 10 days. [facility] oxyCODONE (OXY-IR) 10 mg tablet 2022-07 00:00: 00 06-26 23:59 :00 No 10mg Take 1 tablet (10 mg total) by mouth every 8 (eight) hours as needed for up to 10 days. Max Daily Amount: 30 mg [facility] cyclobenzap rine (FLEXERIL) 10 MG tablet 2022-07 00:00: 00 06-26 23:59 :00 No 10mg Q.[id number] 3D Take 1 tablet (10 mg total) by mouth 3 (three) times daily for 10 days. [facility] oxyCODONE (OXY-IR) 10 mg tablet 2022-07 00:00: 00 06-26 23:59 :00 No 10mg Take 1 tablet (10 mg total) by mouth every 8 (eight) hours as needed for up to 10 days. Max Daily Amount: 30 mg [facility] cyclobenzap rine (FLEXERIL) 10 MG tablet 2022-07 00:00: 00 06-26 23:59 :00 No 10mg Q.[id number] 3D Take 1 tablet (10 mg total) by mouth 3 (three) times daily for 10 days. [facility] oxyCODONE (OXY-IR) 10 mg tablet 2022-07 00:00: 00 06-26 23:59 :00 No 10mg Take 1 tablet (10 mg total) by mouth every 8 (eight) hours as needed for up to 10 days. Max Daily Amount: 30 mg [facility] cyclobenzap rine (FLEXERIL) 10 MG tablet 2022-07 00:00: 00 06-26 23:59 :00 No 10mg Q.[id number] 3D Take 1 tablet (10 mg total) by mouth 3 (three) times daily for 10 days. [facility] oxyCODONE (OXY-IR) 10 mg tablet 2022-07 00:00: 00 06-26 23:59 :00 No 10mg Take 1 tablet (10 mg total) by mouth every 8 (eight) hours as needed for up to 10 days. Max Daily Amount: 30 mg [facility] cyclobenzap rine (FLEXERIL) 10 MG tablet 2022-07 00:00: 00 06-26 23:59 :00 No 10mg Q.[id number] 3D Take 1 tablet (10 mg total) by mouth 3 (three) times daily for 10 days. [facility] oxyCODONE (OXY-IR) 10 mg tablet 2022-07 00:00: 00 06-26 23:59 :00 No 10mg Take 1 tablet (10 mg total) by mouth every 8 (eight) hours as needed for up to 10 days. Max Daily Amount: 30 mg [facility] cyclobenzap rine (FLEXERIL) 10 MG tablet 2022-07 00:00: 00 06-26 23:59 :00 No 10mg Q.[id number] 3D Take 1 tablet (10 mg total) by mouth 3 (three) times daily for 10 days. [facility] oxyCODONE (OXY-IR) 10 mg tablet 2022-07 00:00: 00 06-26 23:59 :00 No 10mg Take 1 tablet (10 mg total) by mouth every 8 (eight) hours as needed for up to 10 days. Max Daily Amount: 30 mg [facility] cyclobenzap rine (FLEXERIL) 10 MG tablet 2022-07 00:00: 00 06-26 23:59 :00 No 10mg Q.[id number] 3D Take 1 tablet (10 mg total) by mouth 3 (three) times daily for 10 days. [facility] oxyCODONE (OXY-IR) 10 mg tablet 2022-07 00:00: 00 06-26 23:59 :00 No 10mg Take 1 tablet (10 mg total) by mouth every 8 (eight) hours as needed for up to 10 days. Max Daily Amount: 30 mg [facility] cyclobenzap rine (FLEXERIL) 10 MG tablet 2022-07 00:00: 00 06-26 23:59 :00 No 10mg Q.[id number] 3D Take 1 tablet (10 mg total) by mouth 3 (three) times daily for 10 days. [facility] oxyCODONE (OXY-IR) 10 mg tablet 2022-07 00:00: 00 06-26 23:59 :00 No 10mg Take 1 tablet (10 mg total) by mouth every 8 (eight) hours as needed for up to 10 days. Max Daily Amount: 30 mg [facility] cyclobenzap rine (FLEXERIL) 10 MG tablet 2022-07 00:00: 00 06-26 23:59 :00 No 10mg Q.[id number] 3D Take 1 tablet (10 mg total) by mouth 3 (three) times daily for 10 days. [facility] oxyCODONE (OXY-IR) 10 mg tablet 2022-07 00:00: 00 06-26 23:59 :00 No 10mg Take 1 tablet (10 mg total) by mouth every 8 (eight) hours as needed for up to 10 days. Max Daily Amount: 30 mg [facility] cyclobenzap rine (FLEXERIL) 10 MG tablet 2022-07 00:00: 00 06-26 23:59 :00 No 10mg Q.[id number] 3D Take 1 tablet (10 mg total) by mouth 3 (three) times daily for 10 days. [facility] oxyCODONE (OXY-IR) 10 mg tablet 2022-07 00:00: 00 06-26 23:59 :00 No 10mg Take 1 tablet (10 mg total) by mouth every 8 (eight) hours as needed for up to 10 days. Max Daily Amount: 30 mg [facility] cyclobenzap rine (FLEXERIL) 10 MG tablet 2022-07 00:00: 00 06-26 23:59 :00 No 10mg Q.[id number] 3D Take 1 tablet (10 mg total) by mouth 3 (three) times daily for 10 days. [facility] oxyCODONE (OXY-IR) 10 mg tablet 2022-07 00:00: 00 06-26 23:59 :00 No 10mg Take 1 tablet (10 mg total) by mouth every 8 (eight) hours as needed for up to 10 days. Max Daily Amount: 30 mg [facility] cyclobenzap rine (FLEXERIL) 10 MG tablet 2022-07 00:00: 00 06-26 23:59 :00 No 10mg Q.[id number] 3D Take 1 tablet (10 mg total) by mouth 3 (three) times daily for 10 days. [facility] oxyCODONE (OXY-IR) 10 mg tablet 2022-07 00:00: 00 06-26 23:59 :00 No 10mg Take 1 tablet (10 mg total) by mouth every 8 (eight) hours as needed for up to 10 days. Max Daily Amount: 30 mg [facility] cyclobenzap rine (FLEXERIL) 10 MG tablet 2022-07 00:00: 00 06-26 23:59 :00 No 10mg Q.[id number] 3D Take 1 tablet (10 mg total) by mouth 3 (three) times daily for 10 days. [facility] oxyCODONE (OXY-IR) 10 mg tablet 2022-07 00:00: 00 06-26 23:59 :00 No 10mg Take 1 tablet (10 mg total) by mouth every 8 (eight) hours as needed for up to 10 days. Max Daily Amount: 30 mg [facility] cyclobenzap rine (FLEXERIL) 10 MG tablet 2022-07 00:00: 00 06-26 23:59 :00 No 10mg Q.[id number] 3D Take 1 tablet (10 mg total) by mouth 3 (three) times daily for 10 days. [facility] oxyCODONE (OXY-IR) 10 mg tablet 2022-07 00:00: 00 06-26 23:59 :00 No 10mg Take 1 tablet (10 mg total) by mouth every 8 (eight) hours as needed for up to 10 days. Max Daily Amount: 30 mg [facility] nystatin (MYCOSTATIN ) 100,000 unit/mL suspension 2022-07 00:00: 00 06-21 23:59 :00 No [id number] Q.25D Take 5 mLs (500,000 Units total) by mouth 4 (four) times daily for 5 days. [facility] nystatin (MYCOSTATIN ) 100,000 unit/mL suspension 2022-07 00:00: 00 06-21 23:59 :00 No [id number] Q.25D Take 5 mLs (500,000 Units total) by mouth 4 (four) times daily for 5 days. [facility] nystatin (MYCOSTATIN ) 100,000 unit/mL suspension 2022-07 00:00: 00 06-21 23:59 :00 No [id number] Q.25D Take 5 mLs (500,000 Units total) by mouth 4 (four) times daily for 5 days. [facility] nystatin (MYCOSTATIN ) 100,000 unit/mL suspension 2022-07 00:00: 00 06-21 23:59 :00 No [id number] Q.25D Take 5 mLs (500,000 Units total) by mouth 4 (four) times daily for 5 days. [facility] nystatin (MYCOSTATIN ) 100,000 unit/mL suspension 2022-07 00:00: 00 06-21 23:59 :00 No [id number] Q.25D Take 5 mLs (500,000 Units total) by mouth 4 (four) times daily for 5 days. [facility] nystatin (MYCOSTATIN ) 100,000 unit/mL suspension 2022-07 00:00: 00 06-21 23:59 :00 No [id number] Q.25D Take 5 mLs (500,000 Units total) by mouth 4 (four) times daily for 5 days. [facility] nystatin (MYCOSTATIN ) 100,000 unit/mL suspension 2022-07 00:00: 00 06-21 23:59 :00 No [id number] Q.25D Take 5 mLs (500,000 Units total) by mouth 4 (four) times daily for 5 days. [facility] nystatin (MYCOSTATIN ) 100,000 unit/mL suspension 2022-07 00:00: 00 06-21 23:59 :00 No [id number] Q.25D Take 5 mLs (500,000 Units total) by mouth 4 (four) times daily for 5 days. [facility] nystatin (MYCOSTATIN ) 100,000 unit/mL suspension 2022-07 00:00: 00 06-21 23:59 :00 No [id number] Q.25D Take 5 mLs (500,000 Units total) by mouth 4 (four) times daily for 5 days. [facility] nystatin (MYCOSTATIN ) 100,000 unit/mL suspension 2022-07 00:00: 00 06-21 23:59 :00 No [id number] Q.25D Take 5 mLs (500,000 Units total) by mouth 4 (four) times daily for 5 days. [facility] nystatin (MYCOSTATIN ) 100,000 unit/mL suspension 2022-07 00:00: 00 06-21 23:59 :00 No [id number] Q.25D Take 5 mLs (500,000 Units total) by mouth 4 (four) times daily for 5 days. [facility] nystatin (MYCOSTATIN ) 100,000 unit/mL suspension 2022-07 00:00: 00 06-21 23:59 :00 No [id number] Q.25D Take 5 mLs (500,000 Units total) by mouth 4 (four) times daily for 5 days. [facility] nystatin (MYCOSTATIN ) 100,000 unit/mL suspension 2022-07 00:00: 00 06-21 23:59 :00 No [id number] Q.25D Take 5 mLs (500,000 Units total) by mouth 4 (four) times daily for 5 days. [facility] nystatin (MYCOSTATIN ) 100,000 unit/mL suspension 2022-07 00:00: 00 06-21 23:59 :00 No [id number] Q.25D Take 5 mLs (500,000 Units total) by mouth 4 (four) times daily for 5 days. [facility] nystatin (MYCOSTATIN ) 100,000 unit/mL suspension 2022-07 00:00: 00 06-21 23:59 :00 No [id number] Q.25D Take 5 mLs (500,000 Units total) by mouth 4 (four) times daily for 5 days. [facility] nystatin (MYCOSTATIN ) 100,000 unit/mL suspension 2022-07 00:00: 00 06-21 23:59 :00 No [id number] Q.25D Take 5 mLs (500,000 Units total) by mouth 4 (four) times daily for 5 days. [facility] nystatin (MYCOSTATIN ) 100,000 unit/mL suspension 2022-07 00:00: 00 06-21 23:59 :00 No [id number] Q.25D Take 5 mLs (500,000 Units total) by mouth 4 (four) times daily for 5 days. [facility] nystatin (MYCOSTATIN ) 100,000 unit/mL suspension 2022-07 00:00: 00 06-21 23:59 :00 No [id number] Q.25D Take 5 mLs (500,000 Units total) by mouth 4 (four) times daily for 5 days. [facility] nystatin (MYCOSTATIN ) 100,000 unit/mL suspension 2022-07 00:00: 00 06-21 23:59 :00 No [id number] Q.25D Take 5 mLs (500,000 Units total) by mouth 4 (four) times daily for 5 days. [facility] nystatin (MYCOSTATIN ) 100,000 unit/mL suspension 2022-07 00:00: 00 06-21 23:59 :00 No [id number] Q.25D Take 5 mLs (500,000 Units total) by mouth 4 (four) times daily for 5 days. [facility] nystatin (MYCOSTATIN ) 100,000 unit/mL suspension 2022-07 00:00: 00 06-21 23:59 :00 No [id number] Q.25D Take 5 mLs (500,000 Units total) by mouth 4 (four) times daily for 5 days. [facility] nystatin (MYCOSTATIN ) 100,000 unit/mL suspension 2022-07 00:00: 00 06-21 23:59 :00 No [id number] Q.25D Take 5 mLs (500,000 Units total) by mouth 4 (four) times daily for 5 days. [facility] nystatin (MYCOSTATIN ) 100,000 unit/mL suspension 2022-07 00:00: 00 06-21 23:59 :00 No [id number] Q.25D Take 5 mLs (500,000 Units total) by mouth 4 (four) times daily for 5 days. [facility] nystatin (MYCOSTATIN ) 100,000 unit/mL suspension 2022-07 00:00: 00 06-21 23:59 :00 No [id number] Q.25D Take 5 mLs (500,000 Units total) by mouth 4 (four) times daily for 5 days. [facility] nystatin (MYCOSTATIN ) 100,000 unit/mL suspension 2022-07 00:00: 00 06-21 23:59 :00 No [id number] Q.25D Take 5 mLs (500,000 Units total) by mouth 4 (four) times daily for 5 days. [facility] nystatin (MYCOSTATIN ) 100,000 unit/mL suspension 2022-07 00:00: 00 06-21 23:59 :00 No [id number] Q.25D Take 5 mLs (500,000 Units total) by mouth 4 (four) times daily for 5 days. [facility] dexAMETHaso ne (DECADRON) 2 MG tablet 2022-07 00:00: 00 06-08 23:59 :00 No 1mg Take 0.5 tablets (1 mg total) by mouth 2 (two) times daily with breakfast and dinner for 2 days. [facility] dexAMETHaso ne (DECADRON) 2 MG tablet 2022-07 00:00: 00 06-08 23:59 :00 No 1mg Take 0.5 tablets (1 mg total) by mouth 2 (two) times daily with breakfast and dinner for 2 days. [facility] dexAMETHaso ne (DECADRON) 2 MG tablet 2022-07 00:00: 00 06-08 23:59 :00 No 1mg Take 0.5 tablets (1 mg total) by mouth 2 (two) times daily with breakfast and dinner for 2 days. [facility] dexAMETHaso ne (DECADRON) 2 MG tablet 2022-07 00:00: 00 06-08 23:59 :00 No 1mg Take 0.5 tablets (1 mg total) by mouth 2 (two) times daily with breakfast and dinner for 2 days. [facility] dexAMETHaso ne (DECADRON) 2 MG tablet 2022-07 00:00: 00 06-08 23:59 :00 No 1mg Take 0.5 tablets (1 mg total) by mouth 2 (two) times daily with breakfast and dinner for 2 days. [facility] dexAMETHaso ne (DECADRON) 2 MG tablet 2022-07 00:00: 00 06-08 23:59 :00 No 1mg Take 0.5 tablets (1 mg total) by mouth 2 (two) times daily with breakfast and dinner for 2 days. [facility] dexAMETHaso ne (DECADRON) 2 MG tablet 2022-07 00:00: 00 06-08 23:59 :00 No 1mg Take 0.5 tablets (1 mg total) by mouth 2 (two) times daily with breakfast and dinner for 2 days. [facility] dexAMETHaso ne (DECADRON) 2 MG tablet 2022-07 00:00: 00 06-08 23:59 :00 No 1mg Take 0.5 tablets (1 mg total) by mouth 2 (two) times daily with breakfast and dinner for 2 days. [facility] dexAMETHaso ne (DECADRON) 2 MG tablet 2022-07 00:00: 00 06-08 23:59 :00 No 1mg Take 0.5 tablets (1 mg total) by mouth 2 (two) times daily with breakfast and dinner for 2 days. [facility] dexAMETHaso ne (DECADRON) 2 MG tablet 2022-07 00:00: 00 06-08 23:59 :00 No 1mg Take 0.5 tablets (1 mg total) by mouth 2 (two) times daily with breakfast and dinner for 2 days. [facility] dexAMETHaso ne (DECADRON) 2 MG tablet 2022-07 00:00: 00 06-08 23:59 :00 No 1mg Take 0.5 tablets (1 mg total) by mouth 2 (two) times daily with breakfast and dinner for 2 days. [facility] dexAMETHaso ne (DECADRON) 2 MG tablet 2022-07 00:00: 00 06-08 23:59 :00 No 1mg Take 0.5 tablets (1 mg total) by mouth 2 (two) times daily with breakfast and dinner for 2 days. [facility] dexAMETHaso ne (DECADRON) 2 MG tablet 2022-07 00:00: 00 06-08 23:59 :00 No 1mg Take 0.5 tablets (1 mg total) by mouth 2 (two) times daily with breakfast and dinner for 2 days. [facility] dexAMETHaso ne (DECADRON) 2 MG tablet 2022-07 00:00: 00 06-08 23:59 :00 No 1mg Take 0.5 tablets (1 mg total) by mouth 2 (two) times daily with breakfast and dinner for 2 days. [facility] dexAMETHaso ne (DECADRON) 2 MG tablet 2022-07 00:00: 00 06-08 23:59 :00 No 1mg Take 0.5 tablets (1 mg total) by mouth 2 (two) times daily with breakfast and dinner for 2 days. [facility] dexAMETHaso ne (DECADRON) 2 MG tablet 2022-07 00:00: 00 06-08 23:59 :00 No 1mg Take 0.5 tablets (1 mg total) by mouth 2 (two) times daily with breakfast and dinner for 2 days. [facility] dexAMETHaso ne (DECADRON) 2 MG tablet 2022-07 00:00: 00 06-08 23:59 :00 No 1mg Take 0.5 tablets (1 mg total) by mouth 2 (two) times daily with breakfast and dinner for 2 days. [facility] dexAMETHaso ne (DECADRON) 2 MG tablet 2022-07 00:00: 00 06-08 23:59 :00 No 1mg Take 0.5 tablets (1 mg total) by mouth 2 (two) times daily with breakfast and dinner for 2 days. [facility] dexAMETHaso ne (DECADRON) 2 MG tablet 2022-07 00:00: 00 06-08 23:59 :00 No 1mg Take 0.5 tablets (1 mg total) by mouth 2 (two) times daily with breakfast and dinner for 2 days. [facility] dexAMETHaso ne (DECADRON) 2 MG tablet 2022-07 00:00: 00 06-08 23:59 :00 No 1mg Take 0.5 tablets (1 mg total) by mouth 2 (two) times daily with breakfast and dinner for 2 days. [facility] dexAMETHaso ne (DECADRON) 2 MG tablet 2022-07 00:00: 00 06-08 23:59 :00 No 1mg Take 0.5 tablets (1 mg total) by mouth 2 (two) times daily with breakfast and dinner for 2 days. [facility] dexAMETHaso ne (DECADRON) 2 MG tablet 2022-07 00:00: 00 06-08 23:59 :00 No 1mg Take 0.5 tablets (1 mg total) by mouth 2 (two) times daily with breakfast and dinner for 2 days. [facility] dexAMETHaso ne (DECADRON) 2 MG tablet 2022-07 00:00: 00 06-08 23:59 :00 No 1mg Take 0.5 tablets (1 mg total) by mouth 2 (two) times daily with breakfast and dinner for 2 days. [facility] dexAMETHaso ne (DECADRON) 2 MG tablet 2022-07 00:00: 00 06-08 23:59 :00 No 1mg Take 0.5 tablets (1 mg total) by mouth 2 (two) times daily with breakfast and dinner for 2 days. [facility] dexAMETHaso ne (DECADRON) 2 MG tablet 2022-07 00:00: 00 06-08 23:59 :00 No 1mg Take 0.5 tablets (1 mg total) by mouth 2 (two) times daily with breakfast and dinner for 2 days. [facility] dexAMETHaso ne (DECADRON) 2 MG tablet 2022-07 00:00: 00 06-08 23:59 :00 No 1mg Take 0.5 tablets (1 mg total) by mouth 2 (two) times daily with breakfast and dinner for 2 days. [facility] dexAMETHaso ne (DECADRON) 2 MG tablet 2022-07 00:00: 00 06-08 23:59 :00 No 1mg Take 0.5 tablets (1 mg total) by mouth 2 (two) times daily with breakfast and dinner for 2 days. [facility] dexAMETHaso ne (DECADRON) 2 MG tablet 2022-07 00:00: 00 06-08 23:59 :00 No 1mg Take 0.5 tablets (1 mg total) by mouth 2 (two) times daily with breakfast and dinner for 2 days. [facility] dexAMETHaso ne (DECADRON) 2 MG tablet 2022-07 00:00: 00 06-08 23:59 :00 No 1mg Take 0.5 tablets (1 mg total) by mouth 2 (two) times daily with breakfast and dinner for 2 days. [facility] dexAMETHaso ne (DECADRON) 2 MG tablet 2022-07 00:00: 00 06-06 23:59 :00 No 2mg Take 1 tablet (2 mg total) by mouth 2 (two) times daily with breakfast and dinner for 1 day. [facility] dexAMETHaso ne (DECADRON) 2 MG tablet 2022-07 00:00: 00 06-06 23:59 :00 No 2mg Take 1 tablet (2 mg total) by mouth 2 (two) times daily with breakfast and dinner for 1 day. [facility] dexAMETHaso ne (DECADRON) 2 MG tablet 2022-07 00:00: 00 06-06 23:59 :00 No 2mg Take 1 tablet (2 mg total) by mouth 2 (two) times daily with breakfast and dinner for 1 day. [facility] dexAMETHaso ne (DECADRON) 2 MG tablet 2022-07 00:00: 00 06-06 23:59 :00 No 2mg Take 1 tablet (2 mg total) by mouth 2 (two) times daily with breakfast and dinner for 1 day. [facility] dexAMETHaso ne (DECADRON) 2 MG tablet 2022-07 00:00: 00 06-06 23:59 :00 No 2mg Take 1 tablet (2 mg total) by mouth 2 (two) times daily with breakfast and dinner for 1 day. [facility] dexAMETHaso ne (DECADRON) 2 MG tablet 2022-07 00:00: 00 06-06 23:59 :00 No 2mg Take 1 tablet (2 mg total) by mouth 2 (two) times daily with breakfast and dinner for 1 day. [facility] dexAMETHaso ne (DECADRON) 2 MG tablet 2022-07 00:00: 00 06-06 23:59 :00 No 2mg Take 1 tablet (2 mg total) by mouth 2 (two) times daily with breakfast and dinner for 1 day. [facility] dexAMETHaso ne (DECADRON) 2 MG tablet 2022-07 00:00: 00 06-06 23:59 :00 No 2mg Take 1 tablet (2 mg total) by mouth 2 (two) times daily with breakfast and dinner for 1 day. [facility] dexAMETHaso ne (DECADRON) 2 MG tablet 2022-07 00:00: 00 06-06 23:59 :00 No 2mg Take 1 tablet (2 mg total) by mouth 2 (two) times daily with breakfast and dinner for 1 day. [facility] dexAMETHaso ne (DECADRON) 2 MG tablet 2022-07 00:00: 00 06-06 23:59 :00 No 2mg Take 1 tablet (2 mg total) by mouth 2 (two) times daily with breakfast and dinner for 1 day. [facility] dexAMETHaso ne (DECADRON) 2 MG tablet 2022-07 00:00: 00 06-06 23:59 :00 No 2mg Take 1 tablet (2 mg total) by mouth 2 (two) times daily with breakfast and dinner for 1 day. [facility] dexAMETHaso ne (DECADRON) 2 MG tablet 2022-07 00:00: 00 06-06 23:59 :00 No 2mg Take 1 tablet (2 mg total) by mouth 2 (two) times daily with breakfast and dinner for 1 day. [facility] dexAMETHaso ne (DECADRON) 2 MG tablet 2022-07 00:00: 00 06-06 23:59 :00 No 2mg Take 1 tablet (2 mg total) by mouth 2 (two) times daily with breakfast and dinner for 1 day. [facility] dexAMETHaso ne (DECADRON) 2 MG tablet 2022-07 00:00: 00 06-06 23:59 :00 No 2mg Take 1 tablet (2 mg total) by mouth 2 (two) times daily with breakfast and dinner for 1 day. [facility] dexAMETHaso ne (DECADRON) 2 MG tablet 2022-07 00:00: 00 06-06 23:59 :00 No 2mg Take 1 tablet (2 mg total) by mouth 2 (two) times daily with breakfast and dinner for 1 day. [facility] dexAMETHaso ne (DECADRON) 2 MG tablet 2022-07 00:00: 00 06-06 23:59 :00 No 2mg Take 1 tablet (2 mg total) by mouth 2 (two) times daily with breakfast and dinner for 1 day. [facility] dexAMETHaso ne (DECADRON) 2 MG tablet 2022-07 00:00: 00 06-06 23:59 :00 No 2mg Take 1 tablet (2 mg total) by mouth 2 (two) times daily with breakfast and dinner for 1 day. [facility] dexAMETHaso ne (DECADRON) 2 MG tablet 2022-07 00:00: 00 06-06 23:59 :00 No 2mg Take 1 tablet (2 mg total) by mouth 2 (two) times daily with breakfast and dinner for 1 day. [facility] dexAMETHaso ne (DECADRON) 2 MG tablet 2022-07 00:00: 00 06-06 23:59 :00 No 2mg Take 1 tablet (2 mg total) by mouth 2 (two) times daily with breakfast and dinner for 1 day. [facility] dexAMETHaso ne (DECADRON) 2 MG tablet 2022-07 00:00: 00 06-06 23:59 :00 No 2mg Take 1 tablet (2 mg total) by mouth 2 (two) times daily with breakfast and dinner for 1 day. [facility] dexAMETHaso ne (DECADRON) 2 MG tablet 2022-07 00:00: 00 06-06 23:59 :00 No 2mg Take 1 tablet (2 mg total) by mouth 2 (two) times daily with breakfast and dinner for 1 day. [facility] dexAMETHaso ne (DECADRON) 2 MG tablet 2022-07 00:00: 00 06-06 23:59 :00 No 2mg Take 1 tablet (2 mg total) by mouth 2 (two) times daily with breakfast and dinner for 1 day. [facility] dexAMETHaso ne (DECADRON) 2 MG tablet 2022-07 00:00: 00 06-06 23:59 :00 No 2mg Take 1 tablet (2 mg total) by mouth 2 (two) times daily with breakfast and dinner for 1 day. [facility] dexAMETHaso ne (DECADRON) 2 MG tablet 2022-07 00:00: 00 06-06 23:59 :00 No 2mg Take 1 tablet (2 mg total) by mouth 2 (two) times daily with breakfast and dinner for 1 day. [facility] dexAMETHaso ne (DECADRON) 2 MG tablet 2022-07 00:00: 00 06-06 23:59 :00 No 2mg Take 1 tablet (2 mg total) by mouth 2 (two) times daily with breakfast and dinner for 1 day. [facility] dexAMETHaso ne (DECADRON) 2 MG tablet 2022-07 00:00: 00 06-06 23:59 :00 No 2mg Take 1 tablet (2 mg total) by mouth 2 (two) times daily with breakfast and dinner for 1 day. [facility] dexAMETHaso ne (DECADRON) 2 MG tablet 2022-07 00:00: 00 06-06 23:59 :00 No 2mg Take 1 tablet (2 mg total) by mouth 2 (two) times daily with breakfast and dinner for 1 day. [facility] dexAMETHaso ne (DECADRON) 2 MG tablet 2022-07 00:00: 00 06-06 23:59 :00 No 2mg Take 1 tablet (2 mg total) by mouth 2 (two) times daily with breakfast and dinner for 1 day. [facility] dexAMETHaso ne (DECADRON) 2 MG tablet 2022-07 00:00: 00 06-06 23:59 :00 No 2mg Take 1 tablet (2 mg total) by mouth 2 (two) times daily with breakfast and dinner for 1 day. [facility] metoprolol succinate (TOPROL-XL) 25 MG 24 hr tablet 2022-07 17:44: 21 Yes 25mg QD Take 1 tablet (25 mg total) by mouth daily. [facility] varenicline (CHANTIX) 1 mg tablet 2022-07 17:44: 21 Yes 1mg Q.5D Take 1 tablet (1 mg total) by mouth 2 (two) times daily Give with meals and with a full glass of water.. [facility] albuterol HFA (VENTOLIN HFA) 90 mcg/actuati on inhaler 2022-07 17:44: 21 Yes 1{puff} Inhale 1 puff by mouth via inhaler every 6 (six) hours as needed for Wheezing. [facility] fluticasone -umeclidin- vilanter (Trelegy Ellipta) 200-62.5-25 mcg DsDv 2022-07 17:44: 21 Yes QD Inhale by mouth via inhaler daily. [facility] atorvastati n (LIPITOR) 20 MG tablet 2022-07 17:44: 21 Yes 20mg QD Take 1 tablet (20 mg total) by mouth daily. [facility] acetaminoph en-codeine (TYLENOL #3) 300-30 mg per tablet 2022-07 17:44: 21 Yes 1{tbl} Take 1 tablet by mouth every 4 (four) hours as needed for Pain. [facility] metoprolol succinate (TOPROL-XL) 25 MG 24 hr tablet 2022-07 17:44: 21 Yes 25mg QD Take 1 tablet (25 mg total) by mouth daily. [facility] varenicline (CHANTIX) 1 mg tablet 2022-07 17:44: 21 Yes 1mg Q.5D Take 1 tablet (1 mg total) by mouth 2 (two) times daily Give with meals and with a full glass of water.. [facility] albuterol HFA (VENTOLIN HFA) 90 mcg/actuati on inhaler 2022-07 17:44: 21 Yes 1{puff} Inhale 1 puff by mouth via inhaler every 6 (six) hours as needed for Wheezing. [facility] fluticasone -umeclidin- vilanter (Trelegy Ellipta) 200-62.5-25 mcg DsDv 2022-07 17:44: 21 Yes QD Inhale by mouth via inhaler daily. [facility] atorvastati n (LIPITOR) 20 MG tablet 2022-07 17:44: 21 Yes 20mg QD Take 1 tablet (20 mg total) by mouth daily. [facility] acetaminoph en-codeine (TYLENOL #3) 300-30 mg per tablet 2022-07 17:44: 21 Yes 1{tbl} Take 1 tablet by mouth every 4 (four) hours as needed for Pain. [facility] metoprolol succinate (TOPROL-XL) 25 MG 24 hr tablet 2022-07 17:44: 21 Yes 25mg QD Take 1 tablet (25 mg total) by mouth daily. [facility] varenicline (CHANTIX) 1 mg tablet 2022-07 17:44: 21 Yes 1mg Q.5D Take 1 tablet (1 mg total) by mouth 2 (two) times daily Give with meals and with a full glass of water.. [facility] albuterol HFA (VENTOLIN HFA) 90 mcg/actuati on inhaler 2022-07 17:44: 21 Yes 1{puff} Inhale 1 puff by mouth via inhaler every 6 (six) hours as needed for Wheezing. [facility] fluticasone -umeclidin- vilanter (Trelegy Ellipta) 200-62.5-25 mcg DsDv 2022-07 17:44: 21 Yes QD Inhale by mouth via inhaler daily. [facility] atorvastati n (LIPITOR) 20 MG tablet 2022-07 17:44: 21 Yes 20mg QD Take 1 tablet (20 mg total) by mouth daily. [facility] acetaminoph en-codeine (TYLENOL #3) 300-30 mg per tablet 2022-07 17:44: 21 Yes 1{tbl} Take 1 tablet by mouth every 4 (four) hours as needed for Pain. [facility] Naloxone (NARCAN) 4 MG/0.1ML nasal Liquid 2022-07 00:00: 00 Yes 4mg 0.1 mL (4 mg total) as needed. Cynthia gonzalez senna (SENOKOT) 8.6 mg tablet 2022-07 00:00: 00 06-18 23:59 :00 No 17.2mg Q.5D Take 2 tablets (17.2 mg total) by mouth 2 (two) times daily for 14 days. [facility] senna (SENOKOT) 8.6 mg tablet 2022-07 00:00: 00 06-18 23:59 :00 No 17.2mg Q.5D Take 2 tablets (17.2 mg total) by mouth 2 (two) times daily for 14 days. [facility] senna (SENOKOT) 8.6 mg tablet 2022-07 00:00: 00 06-18 23:59 :00 No 17.2mg Q.5D Take 2 tablets (17.2 mg total) by mouth 2 (two) times daily for 14 days. [facility] senna (SENOKOT) 8.6 mg tablet 2022-07 00:00: 00 06-18 23:59 :00 No 17.2mg Q.5D Take 2 tablets (17.2 mg total) by mouth 2 (two) times daily for 14 days. [facility] senna (SENOKOT) 8.6 mg tablet 2022-07 00:00: 00 06-18 23:59 :00 No 17.2mg Q.5D Take 2 tablets (17.2 mg total) by mouth 2 (two) times daily for 14 days. [facility] senna (SENOKOT) 8.6 mg tablet 2022-07 00:00: 00 06-18 23:59 :00 No 17.2mg Q.5D Take 2 tablets (17.2 mg total) by mouth 2 (two) times daily for 14 days. [facility] senna (SENOKOT) 8.6 mg tablet 2022-07 00:00: 00 06-18 23:59 :00 No 17.2mg Q.5D Take 2 tablets (17.2 mg total) by mouth 2 (two) times daily for 14 days. [facility] senna (SENOKOT) 8.6 mg tablet 2022-07 00:00: 00 06-18 23:59 :00 No 17.2mg Q.5D Take 2 tablets (17.2 mg total) by mouth 2 (two) times daily for 14 days. [facility] senna (SENOKOT) 8.6 mg tablet 2022-07 00:00: 00 06-18 23:59 :00 No 17.2mg Q.5D Take 2 tablets (17.2 mg total) by mouth 2 (two) times daily for 14 days. [facility] senna (SENOKOT) 8.6 mg tablet 2022-07 00:00: 00 06-18 23:59 :00 No 17.2mg Q.5D Take 2 tablets (17.2 mg total) by mouth 2 (two) times daily for 14 days. [facility] senna (SENOKOT) 8.6 mg tablet 2022-07 00:00: 00 06-18 23:59 :00 No 17.2mg Q.5D Take 2 tablets (17.2 mg total) by mouth 2 (two) times daily for 14 days. [facility] senna (SENOKOT) 8.6 mg tablet 2022-07 00:00: 00 06-18 23:59 :00 No 17.2mg Q.5D Take 2 tablets (17.2 mg total) by mouth 2 (two) times daily for 14 days. [facility] senna (SENOKOT) 8.6 mg tablet 2022-07 00:00: 00 06-18 23:59 :00 No 17.2mg Q.5D Take 2 tablets (17.2 mg total) by mouth 2 (two) times daily for 14 days. [facility] senna (SENOKOT) 8.6 mg tablet 2022-07 00:00: 00 06-18 23:59 :00 No 17.2mg Q.5D Take 2 tablets (17.2 mg total) by mouth 2 (two) times daily for 14 days. [facility] senna (SENOKOT) 8.6 mg tablet 2022-07 00:00: 00 06-18 23:59 :00 No 17.2mg Q.5D Take 2 tablets (17.2 mg total) by mouth 2 (two) times daily for 14 days. [facility] senna (SENOKOT) 8.6 mg tablet 2022-07 00:00: 00 06-18 23:59 :00 No 17.2mg Q.5D Take 2 tablets (17.2 mg total) by mouth 2 (two) times daily for 14 days. [facility] senna (SENOKOT) 8.6 mg tablet 2022-07 00:00: 00 06-18 23:59 :00 No 17.2mg Q.5D Take 2 tablets (17.2 mg total) by mouth 2 (two) times daily for 14 days. [facility] senna (SENOKOT) 8.6 mg tablet 2022-07 00:00: 00 06-18 23:59 :00 No 17.2mg Q.5D Take 2 tablets (17.2 mg total) by mouth 2 (two) times daily for 14 days. [facility] senna (SENOKOT) 8.6 mg tablet 2022-07 00:00: 00 06-18 23:59 :00 No 17.2mg Q.5D Take 2 tablets (17.2 mg total) by mouth 2 (two) times daily for 14 days. [facility] senna (SENOKOT) 8.6 mg tablet 2023-1 1-16 00:00: 00 06-18 23:59 :00 No 17.2mg Q.5D Take 2 tablets (17.2 mg total) by mouth 2 (two) times daily for 14 days. [facility] senna (SENOKOT) 8.6 mg tablet 2022-0716 00:00: 00 06-18 23:59 :00 No 17.2mg Q.5D Take 2 tablets (17.2 mg total) by mouth 2 (two) times daily for 14 days. [facility] senna (SENOKOT) 8.6 mg tablet 2022-07 00:00: 00 06-18 23:59 :00 No 17.2mg Q.5D Take 2 tablets (17.2 mg total) by mouth 2 (two) times daily for 14 days. [facility] senna (SENOKOT) 8.6 mg tablet 2022-07 00:00: 00 06-18 23:59 :00 No 17.2mg Q.5D Take 2 tablets (17.2 mg total) by mouth 2 (two) times daily for 14 days. [facility] senna (SENOKOT) 8.6 mg tablet 2022-07 00:00: 00 06-18 23:59 :00 No 17.2mg Q.5D Take 2 tablets (17.2 mg total) by mouth 2 (two) times daily for 14 days. [facility] senna (SENOKOT) 8.6 mg tablet 2022-07 00:00: 00 06-18 23:59 :00 No 17.2mg Q.5D Take 2 tablets (17.2 mg total) by mouth 2 (two) times daily for 14 days. [facility] senna (SENOKOT) 8.6 mg tablet 2022-0716 00:00: 00 06-18 23:59 :00 No 17.2mg Q.5D Take 2 tablets (17.2 mg total) by mouth 2 (two) times daily for 14 days. [facility] senna (SENOKOT) 8.6 mg tablet 2022-0716 00:00: 00 06-18 23:59 :00 No 17.2mg Q.5D Take 2 tablets (17.2 mg total) by mouth 2 (two) times daily for 14 days. [facility] senna (SENOKOT) 8.6 mg tablet 2022-07 00:00: 00 06-18 23:59 :00 No 17.2mg Q.5D Take 2 tablets (17.2 mg total) by mouth 2 (two) times daily for 14 days. [facility] senna (SENOKOT) 8.6 mg tablet 2022-07 00:00: 00 06-18 23:59 :00 No 17.2mg Q.5D Take 2 tablets (17.2 mg total) by mouth 2 (two) times daily for 14 days. [facility] cyclobenzap rine (FLEXERIL) 10 MG tablet 2022-07 00:00: 00 06-16 00:00 :00 No 10mg Q.[id number] 3D Take 1 tablet (10 mg total) by mouth 3 (three) times daily for 10 days. [facility] methocarbam oL (ROBAXIN) 500 MG tablet 2022-07 00:00: 00 06-16 00:00 :00 No 500mg Q.25D Take 1 tablet (500 mg total) by mouth 4 (four) times daily for 10 days. [facility] cyclobenzap rine (FLEXERIL) 10 MG tablet 2022-07 00:00: 00 06-16 00:00 :00 No 10mg Q.[id number] 3D Take 1 tablet (10 mg total) by mouth 3 (three) times daily for 10 days. [facility] methocarbam oL (ROBAXIN) 500 MG tablet 2022-07 00:00: 00 06-16 00:00 :00 No 500mg Q.25D Take 1 tablet (500 mg total) by mouth 4 (four) times daily for 10 days. [facility] cyclobenzap rine (FLEXERIL) 10 MG tablet 2022-07 00:00: 00 06-16 00:00 :00 No 10mg Q.[id number] 3D Take 1 tablet (10 mg total) by mouth 3 (three) times daily for 10 days. [facility] methocarbam oL (ROBAXIN) 500 MG tablet 2022-07 00:00: 00 06-16 00:00 :00 No 500mg Q.25D Take 1 tablet (500 mg total) by mouth 4 (four) times daily for 10 days. [facility] cyclobenzap rine (FLEXERIL) 10 MG tablet 2022-07 00:00: 00 06-16 00:00 :00 No 10mg Q.94022232 [id number] 3D Take 1 tablet (10 mg total) by mouth 3 (three) times daily for 10 days. [facility] methocarbam oL (ROBAXIN) 500 MG tablet 2022-07 00:00: 00 06-16 00:00 :00 No 500mg Q.25D Take 1 tablet (500 mg total) by mouth 4 (four) times daily for 10 days. [facility] cyclobenzap rine (FLEXERIL) 10 MG tablet 2022-07 00:00: 00 06-16 00:00 :00 No 10mg Q.07021062 [id number] 3D Take 1 tablet (10 mg total) by mouth 3 (three) times daily for 10 days. [facility] methocarbam oL (ROBAXIN) 500 MG tablet 2022-07 00:00: 00 06-16 00:00 :00 No 500mg Q.25D Take 1 tablet (500 mg total) by mouth 4 (four) times daily for 10 days. [facility] cyclobenzap rine (FLEXERIL) 10 MG tablet 2022-07 00:00: 00 06-16 00:00 :00 No 10mg Q.[id number] 3D Take 1 tablet (10 mg total) by mouth 3 (three) times daily for 10 days. [facility] methocarbam oL (ROBAXIN) 500 MG tablet 2022-07 00:00: 00 06-16 00:00 :00 No 500mg Q.25D Take 1 tablet (500 mg total) by mouth 4 (four) times daily for 10 days. [facility] cyclobenzap rine (FLEXERIL) 10 MG tablet 2022-07 00:00: 00 06-16 00:00 :00 No 10mg Q.[id number] 3D Take 1 tablet (10 mg total) by mouth 3 (three) times daily for 10 days. [facility] methocarbam oL (ROBAXIN) 500 MG tablet 2022-07 00:00: 00 06-16 00:00 :00 No 500mg Q.25D Take 1 tablet (500 mg total) by mouth 4 (four) times daily for 10 days. [facility] cyclobenzap rine (FLEXERIL) 10 MG tablet 2022-07 00:00: 00 06-16 00:00 :00 No 10mg Q.[id number] 3D Take 1 tablet (10 mg total) by mouth 3 (three) times daily for 10 days. [facility] methocarbam oL (ROBAXIN) 500 MG tablet 2022-07 00:00: 00 06-16 00:00 :00 No 500mg Q.25D Take 1 tablet (500 mg total) by mouth 4 (four) times daily for 10 days. [facility] cyclobenzap rine (FLEXERIL) 10 MG tablet 2022-07 00:00: 00 06-16 00:00 :00 No 10mg Q.[id number] 3D Take 1 tablet (10 mg total) by mouth 3 (three) times daily for 10 days. [facility] methocarbam oL (ROBAXIN) 500 MG tablet 2022-07 00:00: 00 06-16 00:00 :00 No 500mg Q.25D Take 1 tablet (500 mg total) by mouth 4 (four) times daily for 10 days. [facility] cyclobenzap rine (FLEXERIL) 10 MG tablet 2022-07 00:00: 00 06-16 00:00 :00 No 10mg Q.[id number] 3D Take 1 tablet (10 mg total) by mouth 3 (three) times daily for 10 days. [facility] methocarbam oL (ROBAXIN) 500 MG tablet 2022-07 00:00: 00 06-16 00:00 :00 No 500mg Q.25D Take 1 tablet (500 mg total) by mouth 4 (four) times daily for 10 days. [facility] cyclobenzap rine (FLEXERIL) 10 MG tablet 2022-07 00:00: 00 06-16 00:00 :00 No 10mg Q.[id number] 3D Take 1 tablet (10 mg total) by mouth 3 (three) times daily for 10 days. [facility] methocarbam oL (ROBAXIN) 500 MG tablet 2022-07 00:00: 00 06-16 00:00 :00 No 500mg Q.25D Take 1 tablet (500 mg total) by mouth 4 (four) times daily for 10 days. [facility] cyclobenzap rine (FLEXERIL) 10 MG tablet 2022-07 00:00: 00 06-16 00:00 :00 No 10mg Q.[id number] 3D Take 1 tablet (10 mg total) by mouth 3 (three) times daily for 10 days. [facility] methocarbam oL (ROBAXIN) 500 MG tablet 2022-07 00:00: 00 06-16 00:00 :00 No 500mg Q.25D Take 1 tablet (500 mg total) by mouth 4 (four) times daily for 10 days. [facility] cyclobenzap rine (FLEXERIL) 10 MG tablet 2022-07 00:00: 00 06-16 00:00 :00 No 10mg Q.[id number] 3D Take 1 tablet (10 mg total) by mouth 3 (three) times daily for 10 days. [facility] methocarbam oL (ROBAXIN) 500 MG tablet 2022-07 00:00: 00 06-16 00:00 :00 No 500mg Q.25D Take 1 tablet (500 mg total) by mouth 4 (four) times daily for 10 days. [facility] cyclobenzap rine (FLEXERIL) 10 MG tablet 2022-07 00:00: 00 06-16 00:00 :00 No 10mg Q.[id number] 3D Take 1 tablet (10 mg total) by mouth 3 (three) times daily for 10 days. [facility] methocarbam oL (ROBAXIN) 500 MG tablet 2022-07 00:00: 00 06-16 00:00 :00 No 500mg Q.25D Take 1 tablet (500 mg total) by mouth 4 (four) times daily for 10 days. [facility] cyclobenzap rine (FLEXERIL) 10 MG tablet 2022-07 00:00: 00 06-16 00:00 :00 No 10mg Q.[id number] 3D Take 1 tablet (10 mg total) by mouth 3 (three) times daily for 10 days. [facility] methocarbam oL (ROBAXIN) 500 MG tablet 2022-07 00:00: 00 06-16 00:00 :00 No 500mg Q.25D Take 1 tablet (500 mg total) by mouth 4 (four) times daily for 10 days. [facility] cyclobenzap rine (FLEXERIL) 10 MG tablet 2022-07 00:00: 00 06-16 00:00 :00 No 10mg Q.[id number] 3D Take 1 tablet (10 mg total) by mouth 3 (three) times daily for 10 days. [facility] methocarbam oL (ROBAXIN) 500 MG tablet 2022-07 00:00: 00 06-16 00:00 :00 No 500mg Q.25D Take 1 tablet (500 mg total) by mouth 4 (four) times daily for 10 days. [facility] cyclobenzap rine (FLEXERIL) 10 MG tablet 2022-07 00:00: 00 06-16 00:00 :00 No 10mg Q.[id number] 3D Take 1 tablet (10 mg total) by mouth 3 (three) times daily for 10 days. [facility] methocarbam oL (ROBAXIN) 500 MG tablet 2022-07 00:00: 00 06-16 00:00 :00 No 500mg Q.25D Take 1 tablet (500 mg total) by mouth 4 (four) times daily for 10 days. [facility] cyclobenzap rine (FLEXERIL) 10 MG tablet 2022-07 00:00: 00 06-16 00:00 :00 No 10mg Q.[id number] 3D Take 1 tablet (10 mg total) by mouth 3 (three) times daily for 10 days. [facility] methocarbam oL (ROBAXIN) 500 MG tablet 2022-07 00:00: 00 06-16 00:00 :00 No 500mg Q.25D Take 1 tablet (500 mg total) by mouth 4 (four) times daily for 10 days. [facility] cyclobenzap rine (FLEXERIL) 10 MG tablet 2022-07 00:00: 00 06-16 00:00 :00 No 10mg Q.[id number] 3D Take 1 tablet (10 mg total) by mouth 3 (three) times daily for 10 days. [facility] methocarbam oL (ROBAXIN) 500 MG tablet 2022-07 00:00: 00 06-16 00:00 :00 No 500mg Q.25D Take 1 tablet (500 mg total) by mouth 4 (four) times daily for 10 days. [facility] cyclobenzap rine (FLEXERIL) 10 MG tablet 2022-07 00:00: 00 06-16 00:00 :00 No 10mg Q.[id number] 3D Take 1 tablet (10 mg total) by mouth 3 (three) times daily for 10 days. [facility] methocarbam oL (ROBAXIN) 500 MG tablet 2022-07 00:00: 00 06-16 00:00 :00 No 500mg Q.25D Take 1 tablet (500 mg total) by mouth 4 (four) times daily for 10 days. [facility] cyclobenzap rine (FLEXERIL) 10 MG tablet 2022-07 00:00: 00 06-16 00:00 :00 No 10mg Q.[id number] 3D Take 1 tablet (10 mg total) by mouth 3 (three) times daily for 10 days. [facility] methocarbam oL (ROBAXIN) 500 MG tablet 2022-07 00:00: 00 06-16 00:00 :00 No 500mg Q.25D Take 1 tablet (500 mg total) by mouth 4 (four) times daily for 10 days. [facility] cyclobenzap rine (FLEXERIL) 10 MG tablet 2022-07 00:00: 00 06-16 00:00 :00 No 10mg Q.[id number] 3D Take 1 tablet (10 mg total) by mouth 3 (three) times daily for 10 days. [facility] methocarbam oL (ROBAXIN) 500 MG tablet 2022-07 00:00: 00 06-16 00:00 :00 No 500mg Q.25D Take 1 tablet (500 mg total) by mouth 4 (four) times daily for 10 days. [facility] cyclobenzap rine (FLEXERIL) 10 MG tablet 2022-07 00:00: 00 06-16 00:00 :00 No 10mg Q.[id number] 3D Take 1 tablet (10 mg total) by mouth 3 (three) times daily for 10 days. [facility] methocarbam oL (ROBAXIN) 500 MG tablet 2022-07 00:00: 00 06-16 00:00 :00 No 500mg Q.25D Take 1 tablet (500 mg total) by mouth 4 (four) times daily for 10 days. [facility] cyclobenzap rine (FLEXERIL) 10 MG tablet 2022-07 00:00: 00 06-16 00:00 :00 No 10mg Q.[id number] 3D Take 1 tablet (10 mg total) by mouth 3 (three) times daily for 10 days. [facility] methocarbam oL (ROBAXIN) 500 MG tablet 2022-07 00:00: 00 06-16 00:00 :00 No 500mg Q.25D Take 1 tablet (500 mg total) by mouth 4 (four) times daily for 10 days. [facility] cyclobenzap rine (FLEXERIL) 10 MG tablet 2022-07 00:00: 00 06-16 00:00 :00 No 10mg Q.[id number] 3D Take 1 tablet (10 mg total) by mouth 3 (three) times daily for 10 days. [facility] methocarbam oL (ROBAXIN) 500 MG tablet 2022-07 00:00: 00 06-16 00:00 :00 No 500mg Q.25D Take 1 tablet (500 mg total) by mouth 4 (four) times daily for 10 days. [facility] cyclobenzap rine (FLEXERIL) 10 MG tablet 2022-07 00:00: 00 06-16 00:00 :00 No 10mg Q.[id number] 3D Take 1 tablet (10 mg total) by mouth 3 (three) times daily for 10 days. [facility] methocarbam oL (ROBAXIN) 500 MG tablet 2022-07 00:00: 00 06-16 00:00 :00 No 500mg Q.25D Take 1 tablet (500 mg total) by mouth 4 (four) times daily for 10 days. [facility] cyclobenzap rine (FLEXERIL) 10 MG tablet 2022-07 00:00: 00 06-14 23:59 :00 No 10mg Q.[id number] 3D Take 1 tablet (10 mg total) by mouth 3 (three) times daily for 10 days. [facility] methocarbam oL (ROBAXIN) 500 MG tablet 2022-07 00:00: 00 06-14 23:59 :00 No 500mg Q.25D Take 1 tablet (500 mg total) by mouth 4 (four) times daily for 10 days. [facility] cyclobenzap rine (FLEXERIL) 10 MG tablet 2022-07 00:00: 00 06-14 23:59 :00 No 10mg Q.[id number] 3D Take 1 tablet (10 mg total) by mouth 3 (three) times daily for 10 days. [facility] methocarbam oL (ROBAXIN) 500 MG tablet 2022-07 00:00: 00 06-14 23:59 :00 No 500mg Q.25D Take 1 tablet (500 mg total) by mouth 4 (four) times daily for 10 days. [facility] cyclobenzap rine (FLEXERIL) 10 MG tablet 2022-07 00:00: 00 06-14 23:59 :00 No 10mg Q.[id number] 3D Take 1 tablet (10 mg total) by mouth 3 (three) times daily for 10 days. [facility] methocarbam oL (ROBAXIN) 500 MG tablet 2022-07 00:00: 00 06-14 23:59 :00 No 500mg Q.25D Take 1 tablet (500 mg total) by mouth 4 (four) times daily for 10 days. [facility] lactulose (CHRONULAC) 20 gram/30 mL solution 2022-07 00:00: 00 06-11 23:59 :00 No 20g Q.[id number] 3D Take 30 mLs (20 g total) by mouth 3 (three) times daily for 7 days. [facility] ondansetron (ZOFRAN-ODT ) 4 MG disintegrat ing tablet 2022-07 00:00: 00 06-11 23:59 :00 No 4mg Take 1 tablet (4 mg total) by mouth every 6 (six) hours as needed for up to 7 days. [facility] lactulose (CHRONULAC) 20 gram/30 mL solution 2022-07 00:00: 00 06-11 23:59 :00 No 20g Q.[id number] 3D Take 30 mLs (20 g total) by mouth 3 (three) times daily for 7 days. [facility] ondansetron (ZOFRAN-ODT ) 4 MG disintegrat ing tablet 2022-07 00:00: 00 06-11 23:59 :00 No 4mg Take 1 tablet (4 mg total) by mouth every 6 (six) hours as needed for up to 7 days. [facility] lactulose (CHRONULAC) 20 gram/30 mL solution 2022-07 00:00: 00 06-11 23:59 :00 No 20g Q.[id number] 3D Take 30 mLs (20 g total) by mouth 3 (three) times daily for 7 days. [facility] ondansetron (ZOFRAN-ODT ) 4 MG disintegrat ing tablet 2022-07 00:00: 00 06-11 23:59 :00 No 4mg Take 1 tablet (4 mg total) by mouth every 6 (six) hours as needed for up to 7 days. [facility] lactulose (CHRONULAC) 20 gram/30 mL solution 2022-07 00:00: 00 06-11 23:59 :00 No 20g Q.[id number] 3D Take 30 mLs (20 g total) by mouth 3 (three) times daily for 7 days. [facility] ondansetron (ZOFRAN-ODT ) 4 MG disintegrat ing tablet 2022-07 00:00: 00 06-11 23:59 :00 No 4mg Take 1 tablet (4 mg total) by mouth every 6 (six) hours as needed for up to 7 days. [facility] lactulose (CHRONULAC) 20 gram/30 mL solution 2022-07 00:00: 00 06-11 23:59 :00 No 20g Q.[id number] 3D Take 30 mLs (20 g total) by mouth 3 (three) times daily for 7 days. [facility] ondansetron (ZOFRAN-ODT ) 4 MG disintegrat ing tablet 2022-07 00:00: 00 06-11 23:59 :00 No 4mg Take 1 tablet (4 mg total) by mouth every 6 (six) hours as needed for up to 7 days. [facility] lactulose (CHRONULAC) 20 gram/30 mL solution 2022-07 00:00: 00 06-11 23:59 :00 No 20g Q.[id number] 3D Take 30 mLs (20 g total) by mouth 3 (three) times daily for 7 days. [facility] ondansetron (ZOFRAN-ODT ) 4 MG disintegrat ing tablet 2022-07 00:00: 00 06-11 23:59 :00 No 4mg Take 1 tablet (4 mg total) by mouth every 6 (six) hours as needed for up to 7 days. [facility] lactulose (CHRONULAC) 20 gram/30 mL solution 2022-07 00:00: 00 06-11 23:59 :00 No 20g Q.[id number] 3D Take 30 mLs (20 g total) by mouth 3 (three) times daily for 7 days. [facility] ondansetron (ZOFRAN-ODT ) 4 MG disintegrat ing tablet 2022-07 00:00: 00 06-11 23:59 :00 No 4mg Take 1 tablet (4 mg total) by mouth every 6 (six) hours as needed for up to 7 days. [facility] lactulose (CHRONULAC) 20 gram/30 mL solution 2022-07 00:00: 00 06-11 23:59 :00 No 20g Q.[id number] 3D Take 30 mLs (20 g total) by mouth 3 (three) times daily for 7 days. [facility] ondansetron (ZOFRAN-ODT ) 4 MG disintegrat ing tablet 2022-07 00:00: 00 06-11 23:59 :00 No 4mg Take 1 tablet (4 mg total) by mouth every 6 (six) hours as needed for up to 7 days. [facility] lactulose (CHRONULAC) 20 gram/30 mL solution 2022-07 00:00: 00 06-11 23:59 :00 No 20g Q.[id number] 3D Take 30 mLs (20 g total) by mouth 3 (three) times daily for 7 days. [facility] ondansetron (ZOFRAN-ODT ) 4 MG disintegrat ing tablet 2022-07 00:00: 00 06-11 23:59 :00 No 4mg Take 1 tablet (4 mg total) by mouth every 6 (six) hours as needed for up to 7 days. [facility] lactulose (CHRONULAC) 20 gram/30 mL solution 2022-07 00:00: 00 06-11 23:59 :00 No 20g Q.[id number] 3D Take 30 mLs (20 g total) by mouth 3 (three) times daily for 7 days. [facility] ondansetron (ZOFRAN-ODT ) 4 MG disintegrat ing tablet 2022-07 00:00: 00 06-11 23:59 :00 No 4mg Take 1 tablet (4 mg total) by mouth every 6 (six) hours as needed for up to 7 days. [facility] lactulose (CHRONULAC) 20 gram/30 mL solution 2022-07 00:00: 00 06-11 23:59 :00 No 20g Q.[id number] 3D Take 30 mLs (20 g total) by mouth 3 (three) times daily for 7 days. [facility] ondansetron (ZOFRAN-ODT ) 4 MG disintegrat ing tablet 2022-07 00:00: 00 06-11 23:59 :00 No 4mg Take 1 tablet (4 mg total) by mouth every 6 (six) hours as needed for up to 7 days. [facility] lactulose (CHRONULAC) 20 gram/30 mL solution 2022-07 00:00: 00 06-11 23:59 :00 No 20g Q.[id number] 3D Take 30 mLs (20 g total) by mouth 3 (three) times daily for 7 days. [facility] ondansetron (ZOFRAN-ODT ) 4 MG disintegrat ing tablet 2022-07 00:00: 00 06-11 23:59 :00 No 4mg Take 1 tablet (4 mg total) by mouth every 6 (six) hours as needed for up to 7 days. [facility] lactulose (CHRONULAC) 20 gram/30 mL solution 2022-07 00:00: 00 06-11 23:59 :00 No 20g Q.[id number] 3D Take 30 mLs (20 g total) by mouth 3 (three) times daily for 7 days. [facility] ondansetron (ZOFRAN-ODT ) 4 MG disintegrat ing tablet 2022-07 00:00: 00 06-11 23:59 :00 No 4mg Take 1 tablet (4 mg total) by mouth every 6 (six) hours as needed for up to 7 days. [facility] lactulose (CHRONULAC) 20 gram/30 mL solution 2022-07 00:00: 00 06-11 23:59 :00 No 20g Q.[id number] 3D Take 30 mLs (20 g total) by mouth 3 (three) times daily for 7 days. [facility] ondansetron (ZOFRAN-ODT ) 4 MG disintegrat ing tablet 2022-07 00:00: 00 06-11 23:59 :00 No 4mg Take 1 tablet (4 mg total) by mouth every 6 (six) hours as needed for up to 7 days. [facility] lactulose (CHRONULAC) 20 gram/30 mL solution 2022-07 00:00: 00 06-11 23:59 :00 No 20g Q.[id number] 3D Take 30 mLs (20 g total) by mouth 3 (three) times daily for 7 days. [facility] ondansetron (ZOFRAN-ODT ) 4 MG disintegrat ing tablet 2022-07 00:00: 00 06-11 23:59 :00 No 4mg Take 1 tablet (4 mg total) by mouth every 6 (six) hours as needed for up to 7 days. [facility] lactulose (CHRONULAC) 20 gram/30 mL solution 2022-07 00:00: 00 06-11 23:59 :00 No 20g Q.[id number] 3D Take 30 mLs (20 g total) by mouth 3 (three) times daily for 7 days. [facility] ondansetron (ZOFRAN-ODT ) 4 MG disintegrat ing tablet 2022-07 00:00: 00 06-11 23:59 :00 No 4mg Take 1 tablet (4 mg total) by mouth every 6 (six) hours as needed for up to 7 days. [facility] lactulose (CHRONULAC) 20 gram/30 mL solution 2022-07 00:00: 00 06-11 23:59 :00 No 20g Q.[id number] 3D Take 30 mLs (20 g total) by mouth 3 (three) times daily for 7 days. [facility] ondansetron (ZOFRAN-ODT ) 4 MG disintegrat ing tablet 2022-07 00:00: 00 06-11 23:59 :00 No 4mg Take 1 tablet (4 mg total) by mouth every 6 (six) hours as needed for up to 7 days. [facility] lactulose (CHRONULAC) 20 gram/30 mL solution 2022-07 00:00: 00 06-11 23:59 :00 No 20g Q.[id number] 3D Take 30 mLs (20 g total) by mouth 3 (three) times daily for 7 days. [facility] ondansetron (ZOFRAN-ODT ) 4 MG disintegrat ing tablet 2022-07 00:00: 00 06-11 23:59 :00 No 4mg Take 1 tablet (4 mg total) by mouth every 6 (six) hours as needed for up to 7 days. [facility] lactulose (CHRONULAC) 20 gram/30 mL solution 2022-07 00:00: 00 06-11 23:59 :00 No 20g Q.[id number] 3D Take 30 mLs (20 g total) by mouth 3 (three) times daily for 7 days. [facility] ondansetron (ZOFRAN-ODT ) 4 MG disintegrat ing tablet 2022-07 00:00: 00 06-11 23:59 :00 No 4mg Take 1 tablet (4 mg total) by mouth every 6 (six) hours as needed for up to 7 days. [facility] lactulose (CHRONULAC) 20 gram/30 mL solution 2022-07 00:00: 00 06-11 23:59 :00 No 20g Q.[id number] 3D Take 30 mLs (20 g total) by mouth 3 (three) times daily for 7 days. [facility] ondansetron (ZOFRAN-ODT ) 4 MG disintegrat ing tablet 2022-07 00:00: 00 06-11 23:59 :00 No 4mg Take 1 tablet (4 mg total) by mouth every 6 (six) hours as needed for up to 7 days. [facility] lactulose (CHRONULAC) 20 gram/30 mL solution 2022-07 00:00: 00 06-11 23:59 :00 No 20g Q.[id number] 3D Take 30 mLs (20 g total) by mouth 3 (three) times daily for 7 days. [facility] ondansetron (ZOFRAN-ODT ) 4 MG disintegrat ing tablet 2022-07 00:00: 00 06-11 23:59 :00 No 4mg Take 1 tablet (4 mg total) by mouth every 6 (six) hours as needed for up to 7 days. [facility] lactulose (CHRONULAC) 20 gram/30 mL solution 2022-07 00:00: 00 06-11 23:59 :00 No 20g Q.[id number] 3D Take 30 mLs (20 g total) by mouth 3 (three) times daily for 7 days. [facility] ondansetron (ZOFRAN-ODT ) 4 MG disintegrat ing tablet 2022-07 00:00: 00 06-11 23:59 :00 No 4mg Take 1 tablet (4 mg total) by mouth every 6 (six) hours as needed for up to 7 days. [facility] lactulose (CHRONULAC) 20 gram/30 mL solution 2022-07 00:00: 00 06-11 23:59 :00 No 20g Q.[id number] 3D Take 30 mLs (20 g total) by mouth 3 (three) times daily for 7 days. [facility] ondansetron (ZOFRAN-ODT ) 4 MG disintegrat ing tablet 2022-07 00:00: 00 06-11 23:59 :00 No 4mg Take 1 tablet (4 mg total) by mouth every 6 (six) hours as needed for up to 7 days. [facility] lactulose (CHRONULAC) 20 gram/30 mL solution 2022-07 00:00: 00 06-11 23:59 :00 No 20g Q.[id number] 3D Take 30 mLs (20 g total) by mouth 3 (three) times daily for 7 days. [facility] ondansetron (ZOFRAN-ODT ) 4 MG disintegrat ing tablet 2022-07 00:00: 00 06-11 23:59 :00 No 4mg Take 1 tablet (4 mg total) by mouth every 6 (six) hours as needed for up to 7 days. [facility] lactulose (CHRONULAC) 20 gram/30 mL solution 2022-07 00:00: 00 06-11 23:59 :00 No 20g Q.[id number] 3D Take 30 mLs (20 g total) by mouth 3 (three) times daily for 7 days. [facility] ondansetron (ZOFRAN-ODT ) 4 MG disintegrat ing tablet 2022-07 00:00: 00 06-11 23:59 :00 No 4mg Take 1 tablet (4 mg total) by mouth every 6 (six) hours as needed for up to 7 days. [facility] lactulose (CHRONULAC) 20 gram/30 mL solution 2022-07 00:00: 00 06-11 23:59 :00 No 20g Q.[id number] 3D Take 30 mLs (20 g total) by mouth 3 (three) times daily for 7 days. [facility] ondansetron (ZOFRAN-ODT ) 4 MG disintegrat ing tablet 2022-07 00:00: 00 06-11 23:59 :00 No 4mg Take 1 tablet (4 mg total) by mouth every 6 (six) hours as needed for up to 7 days. [facility] lactulose (CHRONULAC) 20 gram/30 mL solution 2022-07 00:00: 00 06-11 23:59 :00 No 20g Q.[id number] 3D Take 30 mLs (20 g total) by mouth 3 (three) times daily for 7 days. [facility] ondansetron (ZOFRAN-ODT ) 4 MG disintegrat ing tablet 2022-07 00:00: 00 06-11 23:59 :00 No 4mg Take 1 tablet (4 mg total) by mouth every 6 (six) hours as needed for up to 7 days. [facility] lactulose (CHRONULAC) 20 gram/30 mL solution 2022-07 00:00: 00 06-11 23:59 :00 No 20g Q.[id number] 3D Take 30 mLs (20 g total) by mouth 3 (three) times daily for 7 days. [facility] ondansetron (ZOFRAN-ODT ) 4 MG disintegrat ing tablet 2022-07 00:00: 00 06-11 23:59 :00 No 4mg Take 1 tablet (4 mg total) by mouth every 6 (six) hours as needed for up to 7 days. [facility] lactulose (CHRONULAC) 20 gram/30 mL solution 2022-07 00:00: 00 06-11 23:59 :00 No 20g Q.[id number] 3D Take 30 mLs (20 g total) by mouth 3 (three) times daily for 7 days. [facility] ondansetron (ZOFRAN-ODT ) 4 MG disintegrat ing tablet 2022-07 00:00: 00 06-11 23:59 :00 No 4mg Take 1 tablet (4 mg total) by mouth every 6 (six) hours as needed for up to 7 days. [facility] metoprolol succinate (TOPROL-XL) 25 MG 24 hr tablet 2022-07 15:23: 22 Yes 25mg QD Take 1 tablet (25 mg total) by mouth daily. [facility] varenicline (CHANTIX) 1 mg tablet 2022-07 15:23: 22 Yes 1mg Q.5D Take 1 tablet (1 mg total) by mouth 2 (two) times daily Give with meals and with a full glass of water.. [facility] albuterol HFA (VENTOLIN HFA) 90 mcg/actuati on inhaler 2022-07 15:23: 22 Yes 1{puff} Inhale 1 puff by mouth via inhaler every 6 (six) hours as needed for Wheezing. [facility] fluticasone -umeclidin- vilanter (Trelegy Ellipta) 200-62.5-25 mcg DsDv 2022-07 15:23: 22 Yes QD Inhale by mouth via inhaler daily. [facility] atorvastati n (LIPITOR) 20 MG tablet 2022-07 15:23: 22 Yes 20mg QD Take 1 tablet (20 mg total) by mouth daily. [facility] acetaminoph en-codeine (TYLENOL #3) 300-30 mg per tablet 2022-07 15:23: 22 Yes 1{tbl} Take 1 tablet by mouth every 4 (four) hours as needed for Pain. [facility] acetaminoph en-codeine (TYLENOL #3) 300-30 mg per tablet 2022-07 09:42: 02 Yes 1{tbl} Take 1 tablet by mouth every 4 (four) hours as needed for Pain. Max Daily Amount: 6 tablets [facility] acetaminoph en-codeine (TYLENOL #3) 300-30 mg per tablet 2022-07 09:42: 02 Yes 1{tbl} Take 1 tablet by mouth every 4 (four) hours as needed for Pain. Max Daily Amount: 6 tablets [facility] varenicline (CHANTIX) 1 mg tablet 2022-07 09:40: 04 Yes 1mg Q.5D Take 1 tablet (1 mg total) by mouth 2 (two) times daily Give with meals and with a full glass of water.. [facility] albuterol HFA (VENTOLIN HFA) 90 mcg/actuati on inhaler 2022-07 09:40: 04 Yes 1{puff} Inhale 1 puff by mouth via inhaler every 6 (six) hours as needed for Wheezing. [facility] fluticasone -umeclidin- vilanter (Trelegy Ellipta) 200-62.5-25 mcg DsDv 2022-07 09:40: 04 Yes QD Inhale by mouth via inhaler daily. [facility] atorvastati n (LIPITOR) 20 MG tablet 2022-07 09:40: 04 Yes 20mg QD Take 1 tablet (20 mg total) by mouth daily. [facility] varenicline (CHANTIX) 1 mg tablet 2022-07 09:40: 04 Yes 1mg Q.5D Take 1 tablet (1 mg total) by mouth 2 (two) times daily Give with meals and with a full glass of water.. [facility] albuterol HFA (VENTOLIN HFA) 90 mcg/actuati on inhaler 2022-07 09:40: 04 Yes 1{puff} Inhale 1 puff by mouth via inhaler every 6 (six) hours as needed for Wheezing. [facility] fluticasone -umeclidin- vilanter (Trelegy Ellipta) 200-62.5-25 mcg DsDv 2022-07 09:40: 04 Yes QD Inhale by mouth via inhaler daily. [facility] atorvastati n (LIPITOR) 20 MG tablet 2022-07 09:40: 04 Yes 20mg QD Take 1 tablet (20 mg total) by mouth daily. [facility] metoprolol succinate (TOPROL-XL) 25 MG 24 hr tablet 2022-07 09:13: 28 Yes 25mg QD Take 1 tablet (25 mg total) by mouth daily. [facility] metoprolol succinate (TOPROL-XL) 25 MG 24 hr tablet 2022-07 09:13: 28 Yes 25mg QD Take 1 tablet (25 mg total) by mouth daily. [facility] Atorvastati n Calcium 20 MG oral Tablet 2022-07 00:00: 00 Yes 20mg Take 1 tablet (20 mg total) by mouth daily. [facility] Metoprolol Succinate 25 MG oral TABLET SR 24 HR 2022-07 00:00: 00 Yes 25mg Take 1 tablet (25 mg total) by mouth daily. [facility] Furosemide 40 MG oral Tablet 2022-07 00:00: 00 Yes 40mg 1 tablet (40 mg total). [facility] Nitroglycer in 0.4 MG sublingual SL Tab 2022-07 00:00: 00 Yes .4mg 1 tablet (0.4 mg total). [facility] Aspirin 81 MG oral Chewable Tablet 2022-07 0-16 00:00: 00 Yes 81mg 1 tablet (81 mg total). [facility] Fluticasone -Umeclidin- Vilant (Trelegy Ellipta) 100-62.5-25 MCG/ACT inhalation AEROSOL POWDER, BREATH ACTIVATED 2022-0716 00:00: 00 Yes 1{puff} 1 puff by other route daily. [facility] Duloxetine HCl [address] Particles 04-03 00:00: 00 Yes 30mg Take 1 capsule (30 mg total) by mouth daily. [facility] Gabapentin 300 MG oral Capsule 04-03 00:00: 00 Yes [facility]onz[facility] furosemide (LASIX) 20 MG tablet 04-03 00:00: 00 04-02 23:59 :00 No 20mg QD Take 1 tablet (20 mg total) by mouth daily. [facility] furosemide (LASIX) 20 MG tablet 04-03 00:00: 00 04-02 23:59 :00 No 20mg QD Take 1 tablet (20 mg total) by mouth daily. [facility] DULoxetine (CYMBALTA) 30 MG capsule 04-03 00:00: 00 04-02 23:59 :00 No 30mg QD Take 1 capsule (30 mg total) by mouth daily. [facility] furosemide (LASIX) 20 MG tablet 04-03 00:00: 00 04-02 23:59 :00 No 20mg QD Take 1 tablet (20 mg total) by mouth daily. [facility] lisinopriL (PRINIVIL,Z ESTRIL) 5 MG tablet 04-03 00:00: 00 04-02 23:59 :00 No 5mg QD Take 1 tablet (5 mg total) by mouth daily. [facility] furosemide (LASIX) 20 MG tablet 04-03 00:00: 00 04-02 23:59 :00 No 20mg QD Take 1 tablet (20 mg total) by mouth daily. [facility] furosemide (LASIX) 20 MG tablet 2023-0 9-15 00:00: 00 04-02 23:59 :00 No 20mg QD Take 1 tablet (20 mg total) by mouth daily. [facility] furosemide (LASIX) 20 MG tablet 0 -15 00:00: 00 04-02 23:59 :00 No 20mg QD Take 1 tablet (20 mg total) by mouth daily. [facility] furosemide (LASIX) 20 MG tablet 0 -15 00:00: 00 04-02 23:59 :00 No 20mg QD Take 1 tablet (20 mg total) by mouth daily. [facility] furosemide (LASIX) 20 MG tablet 04-03 00:00: 00 04-02 23:59 :00 No 20mg QD Take 1 tablet (20 mg total) by mouth daily. [facility] furosemide (LASIX) 20 MG tablet 04-03 00:00: 00 04-02 23:59 :00 No 20mg QD Take 1 tablet (20 mg total) by mouth daily. [facility] DULoxetine (CYMBALTA) 30 MG capsule 04-03 00:00: 00 04-02 23:59 :00 No 30mg QD Take 1 capsule (30 mg total) by mouth daily. [facility] furosemide (LASIX) 20 MG tablet 0 15 00:00: 00 04-02 23:59 :00 No 20mg QD Take 1 tablet (20 mg total) by mouth daily. [facility] lisinopriL (PRINIVIL,Z ESTRIL) 5 MG tablet -15 00:00: 00 04-02 23:59 :00 No 5mg QD Take 1 tablet (5 mg total) by mouth daily. [facility] furosemide (LASIX) 20 MG tablet 0 -15 00:00: 00 04-02 23:59 :00 No 20mg QD Take 1 tablet (20 mg total) by mouth daily. [facility] furosemide (LASIX) 20 MG tablet 2022-0 -15 00:00: 00 04-02 23:59 :00 No 20mg QD Take 1 tablet (20 mg total) by mouth daily. [facility] furosemide (LASIX) 20 MG tablet 15 00:00: 00 04-02 23:59 :00 No 20mg QD Take 1 tablet (20 mg total) by mouth daily. [facility] furosemide (LASIX) 20 MG tablet 15 00:00: 00 04-02 23:59 :00 No 20mg QD Take 1 tablet (20 mg total) by mouth daily. [facility] furosemide (LASIX) 20 MG tablet 04-03 00:00: 00 04-02 23:59 :00 No 20mg QD Take 1 tablet (20 mg total) by mouth daily. [facility] furosemide (LASIX) 20 MG tablet 04-03 00:00: 00 04-02 23:59 :00 No 20mg QD Take 1 tablet (20 mg total) by mouth daily. [facility] furosemide (LASIX) 20 MG tablet 04-03 00:00: 00 04-02 23:59 :00 No 20mg QD Take 1 tablet (20 mg total) by mouth daily. [facility] DULoxetine (CYMBALTA) 30 MG capsule 04-03 00:00: 00 04-02 23:59 :00 No 30mg QD Take 1 capsule (30 mg total) by mouth daily. [facility] lisinopriL (PRINIVIL,Z ESTRIL) 5 MG tablet 04-03 00:00: 00 04-02 23:59 :00 No 5mg QD Take 1 tablet (5 mg total) by mouth daily. [facility] furosemide (LASIX) 20 MG tablet 15 00:00: 00 04-02 23:59 :00 No 20mg QD Take 1 tablet (20 mg total) by mouth daily. [facility] furosemide (LASIX) 20 MG tablet 15 00:00: 00 04-02 23:59 :00 No 20mg QD Take 1 tablet (20 mg total) by mouth daily. [facility] furosemide (LASIX) 20 MG tablet 0 15 00:00: 00 04-02 23:59 :00 No 20mg QD Take 1 tablet (20 mg total) by mouth daily. [facility] furosemide (LASIX) 20 MG tablet -15 00:00: 00 04-02 23:59 :00 No 20mg QD Take 1 tablet (20 mg total) by mouth daily. [facility] furosemide (LASIX) 20 MG tablet 15 00:00: 00 04-02 23:59 :00 No 20mg QD Take 1 tablet (20 mg total) by mouth daily. [facility] furosemide (LASIX) 20 MG tablet 04-03 00:00: 00 04-02 23:59 :00 No 20mg QD Take 1 tablet (20 mg total) by mouth daily. [facility] furosemide (LASIX) 20 MG tablet 04-03 00:00: 00 04-02 23:59 :00 No 20mg QD Take 1 tablet (20 mg total) by mouth daily. [facility] DULoxetine (CYMBALTA) 30 MG capsule 04-03 00:00: 00 04-02 23:59 :00 No 30mg QD Take 1 capsule (30 mg total) by mouth daily. [facility] lisinopriL (PRINIVIL,Z ESTRIL) 5 MG tablet 04-03 00:00: 00 04-02 23:59 :00 No 5mg QD Take 1 tablet (5 mg total) by mouth daily. [facility] furosemide (LASIX) 20 MG tablet 04-03 00:00: 00 04-02 23:59 :00 No 20mg QD Take 1 tablet (20 mg total) by mouth daily. [facility] furosemide (LASIX) 20 MG tablet 2022-0 -15 00:00: 00 04-02 23:59 :00 No 20mg QD Take 1 tablet (20 mg total) by mouth daily. [facility] DULoxetine (CYMBALTA) 30 MG capsule 2022-0 9-15 00:00: 00 04-02 23:59 :00 No 30mg QD Take 1 capsule (30 mg total) by mouth daily. [facility] lisinopriL (PRINIVIL,Z ESTRIL) 5 MG tablet 2022-0 9-15 00:00: 00 04-02 23:59 :00 No 5mg QD Take 1 tablet (5 mg total) by mouth daily. [facility] furosemide (LASIX) 20 MG tablet 2022-0 9-15 00:00: 00 04-02 23:59 :00 No 20mg QD Take 1 tablet (20 mg total) by mouth daily. [facility] DULoxetine (CYMBALTA) 30 MG capsule 2022-0 -15 00:00: 00 04-02 23:59 :00 No 30mg QD Take 1 capsule (30 mg total) by mouth daily. [facility] lisinopriL (PRINIVIL,Z ESTRIL) 5 MG tablet 2022-0 9-15 00:00: 00 04-02 23:59 :00 No 5mg QD Take 1 tablet (5 mg total) by mouth daily. [facility] furosemide (LASIX) 20 MG tablet 2022-0 9-15 00:00: 00 04-02 23:59 :00 No 20mg QD Take 1 tablet (20 mg total) by mouth daily. [facility] DULoxetine (CYMBALTA) 30 MG capsule 2022-0 -15 00:00: 00 04-02 23:59 :00 No 30mg QD Take 1 capsule (30 mg total) by mouth daily. [facility] lisinopriL (PRINIVIL,Z ESTRIL) 5 MG tablet 2022-0 9-15 00:00: 00 04-02 23:59 :00 No 5mg QD Take 1 tablet (5 mg total) by mouth daily. [facility] furosemide (LASIX) 20 MG tablet 2022-0 9-15 00:00: 00 04-02 23:59 :00 No 20mg QD Take 1 tablet (20 mg total) by mouth daily. [facility] DULoxetine (CYMBALTA) 30 MG capsule 2022-0 9-15 00:00: 00 04-02 23:59 :00 No 30mg QD Take 1 capsule (30 mg total) by mouth daily. [facility] lisinopriL (PRINIVIL,Z ESTRIL) 5 MG tablet 2022-0 9-15 00:00: 00 04-02 23:59 :00 No 5mg QD Take 1 tablet (5 mg total) by mouth daily. [facility] furosemide (LASIX) 20 MG tablet 2022-0 9-15 00:00: 00 04-02 23:59 :00 No 20mg QD Take 1 tablet (20 mg total) by mouth daily. [facility] DULoxetine (CYMBALTA) 30 MG capsule 2022-0 9-15 00:00: 00 04-02 23:59 :00 No 30mg QD Take 1 capsule (30 mg total) by mouth daily. [facility] lisinopriL (PRINIVIL,Z ESTRIL) 5 MG tablet 2022-0 9-15 00:00: 00 04-02 23:59 :00 No 5mg QD Take 1 tablet (5 mg total) by mouth daily. [facility] furosemide (LASIX) 20 MG tablet 2022-0 9-15 00:00: 00 04-02 23:59 :00 No 20mg QD Take 1 tablet (20 mg total) by mouth daily. [facility] DULoxetine (CYMBALTA) 30 MG capsule 2022-0 9-15 00:00: 00 04-02 23:59 :00 No 30mg QD Take 1 capsule (30 mg total) by mouth daily. [facility] furosemide (LASIX) 20 MG tablet 2022-0 9-15 00:00: 00 04-02 23:59 :00 No 20mg QD Take 1 tablet (20 mg total) by mouth daily. [facility] DULoxetine (CYMBALTA) 30 MG capsule 2022-0 9-15 00:00: 00 04-02 23:59 :00 No 30mg QD Take 1 capsule (30 mg total) by mouth daily. [facility] furosemide (LASIX) 20 MG tablet 2022-0 9-15 00:00: 00 04-02 23:59 :00 No 20mg QD Take 1 tablet (20 mg total) by mouth daily. [facility] DULoxetine (CYMBALTA) 30 MG capsule 2022-0 9-15 00:00: 00 04-02 23:59 :00 No 30mg QD Take 1 capsule (30 mg total) by mouth daily. [facility] furosemide (LASIX) 20 MG tablet 2022-0 9-15 00:00: 00 04-02 23:59 :00 No 20mg QD Take 1 tablet (20 mg total) by mouth daily. [facility] DULoxetine (CYMBALTA) 30 MG capsule 2022-0 9-15 00:00: 00 04-02 23:59 :00 No 30mg QD Take 1 capsule (30 mg total) by mouth daily. [facility] furosemide (LASIX) 20 MG tablet 2022-0 9-15 00:00: 00 04-02 23:59 :00 No 20mg QD Take 1 tablet (20 mg total) by mouth daily. [facility] furosemide (LASIX) 20 MG tablet 2022-0 -15 00:00: 00 04-02 23:59 :00 No 20mg QD Take 1 tablet (20 mg total) by mouth daily. [facility] furosemide (LASIX) 20 MG tablet 2022-0 -15 00:00: 00 09-07 00:00 :00 No 20mg QD Take 1 tablet (20 mg total) by mouth daily. [facility] furosemide (LASIX) 20 MG tablet 2022-0 9-15 00:00: 00 09-07 00:00 :00 No 20mg QD Take 1 tablet (20 mg total) by mouth daily. [facility] furosemide (LASIX) 20 MG tablet 2022-0 9-15 00:00: 00 09-07 00:00 :00 No 20mg QD Take 1 tablet (20 mg total) by mouth daily. [facility] aspirin 81 MG EC tablet -15 00:00: 00 07-02 23:59 :00 No 81mg QD Take 1 tablet (81 mg total) by mouth daily for 90 days. [facility] divalproex (DEPAKOTE) 500 MG EC tablet 15 00:00: 00 07-02 23:59 :00 No 500mg Q.5D Take 1 tablet (500 mg total) by mouth 2 (two) times daily for 90 days. [facility] gabapentin (NEURONTIN) 300 MG capsule 15 00:00: 00 07-02 23:59 :00 No 300mg Q.[id number] 3D Take 1 capsule (300 mg total) by mouth 3 (three) times daily for 90 days. [facility] aspirin 81 MG EC tablet 04-03 00:00: 00 07-02 23:59 :00 No 81mg QD Take 1 tablet (81 mg total) by mouth daily for 90 days. [facility] divalproex (DEPAKOTE) 500 MG EC tablet 04-03 00:00: 00 07-02 23:59 :00 No 500mg Q.5D Take 1 tablet (500 mg total) by mouth 2 (two) times daily for 90 days. [facility] gabapentin (NEURONTIN) 300 MG capsule 04-03 00:00: 00 07-02 23:59 :00 No 300mg Q.[id number] 3D Take 1 capsule (300 mg total) by mouth 3 (three) times daily for 90 days. [facility] aspirin 81 MG EC tablet 15 00:00: 00 07-02 23:59 :00 No 81mg QD Take 1 tablet (81 mg total) by mouth daily for 90 days. [facility] divalproex (DEPAKOTE) 500 MG EC tablet -15 00:00: 00 07-02 23:59 :00 No 500mg Q.5D Take 1 tablet (500 mg total) by mouth 2 (two) times daily for 90 days. [facility] gabapentin (NEURONTIN) 300 MG capsule 04-03 00:00: 00 07-02 23:59 :00 No 300mg Q.[id number] 3D Take 1 capsule (300 mg total) by mouth 3 (three) times daily for 90 days. [facility] aspirin 81 MG EC tablet 04-03 00:00: 00 07-02 23:59 :00 No 81mg QD Take 1 tablet (81 mg total) by mouth daily for 90 days. [facility] divalproex (DEPAKOTE) 500 MG EC tablet 04-03 00:00: 00 07-02 23:59 :00 No 500mg Q.5D Take 1 tablet (500 mg total) by mouth 2 (two) times daily for 90 days. [facility] gabapentin (NEURONTIN) 300 MG capsule 04-03 00:00: 00 07-02 23:59 :00 No 300mg Q.[id number] 3D Take 1 capsule (300 mg total) by mouth 3 (three) times daily for 90 days. [facility] aspirin 81 MG EC tablet 04-03 00:00: 00 07-02 23:59 :00 No 81mg QD Take 1 tablet (81 mg total) by mouth daily for 90 days. [facility] divalproex (DEPAKOTE) 500 MG EC tablet 04-03 00:00: 00 07-02 23:59 :00 No 500mg Q.5D Take 1 tablet (500 mg total) by mouth 2 (two) times daily for 90 days. [facility] gabapentin (NEURONTIN) 300 MG capsule 04-03 00:00: 00 07-02 23:59 :00 No 300mg Q.[id number] 3D Take 1 capsule (300 mg total) by mouth 3 (three) times daily for 90 days. [facility] aspirin 81 MG EC tablet 04-03 00:00: 00 07-02 23:59 :00 No 81mg QD Take 1 tablet (81 mg total) by mouth daily for 90 days. [facility] divalproex (DEPAKOTE) 500 MG EC tablet 04-03 00:00: 00 07-02 23:59 :00 No 500mg Q.5D Take 1 tablet (500 mg total) by mouth 2 (two) times daily for 90 days. [facility] gabapentin (NEURONTIN) 300 MG capsule 04-03 00:00: 00 07-02 23:59 :00 No 300mg Q.[id number] 3D Take 1 capsule (300 mg total) by mouth 3 (three) times daily for 90 days. [facility] aspirin 81 MG EC tablet 04-03 00:00: 00 07-02 23:59 :00 No 81mg QD Take 1 tablet (81 mg total) by mouth daily for 90 days. [facility] divalproex (DEPAKOTE) 500 MG EC tablet 04-03 00:00: 00 07-02 23:59 :00 No 500mg Q.5D Take 1 tablet (500 mg total) by mouth 2 (two) times daily for 90 days. [facility] gabapentin (NEURONTIN) 300 MG capsule 04-03 00:00: 00 07-02 23:59 :00 No 300mg Q.[id number] 3D Take 1 capsule (300 mg total) by mouth 3 (three) times daily for 90 days. [facility] aspirin 81 MG EC tablet 04-03 00:00: 00 07-02 23:59 :00 No 81mg QD Take 1 tablet (81 mg total) by mouth daily for 90 days. [facility] divalproex (DEPAKOTE) 500 MG EC tablet 04-03 00:00: 00 07-02 23:59 :00 No 500mg Q.5D Take 1 tablet (500 mg total) by mouth 2 (two) times daily for 90 days. [facility] gabapentin (NEURONTIN) 300 MG capsule 04-03 00:00: 00 07-02 23:59 :00 No 300mg Q.[id number] 3D Take 1 capsule (300 mg total) by mouth 3 (three) times daily for 90 days. [facility] aspirin 81 MG EC tablet 04-03 00:00: 00 07-02 23:59 :00 No 81mg QD Take 1 tablet (81 mg total) by mouth daily for 90 days. [facility] divalproex (DEPAKOTE) 500 MG EC tablet 04-03 00:00: 00 07-02 23:59 :00 No 500mg Q.5D Take 1 tablet (500 mg total) by mouth 2 (two) times daily for 90 days. [facility] gabapentin (NEURONTIN) 300 MG capsule 04-03 00:00: 00 07-02 23:59 :00 No 300mg Q.[id number] 3D Take 1 capsule (300 mg total) by mouth 3 (three) times daily for 90 days. [facility] aspirin 81 MG EC tablet 04-03 00:00: 00 07-02 23:59 :00 No 81mg QD Take 1 tablet (81 mg total) by mouth daily for 90 days. [facility] divalproex (DEPAKOTE) 500 MG EC tablet 04-03 00:00: 00 07-02 23:59 :00 No 500mg Q.5D Take 1 tablet (500 mg total) by mouth 2 (two) times daily for 90 days. [facility] gabapentin (NEURONTIN) 300 MG capsule 04-03 00:00: 00 07-02 23:59 :00 No 300mg Q.[id number] 3D Take 1 capsule (300 mg total) by mouth 3 (three) times daily for 90 days. [facility] aspirin 81 MG EC tablet 04-03 00:00: 00 07-02 23:59 :00 No 81mg QD Take 1 tablet (81 mg total) by mouth daily for 90 days. [facility] divalproex (DEPAKOTE) 500 MG EC tablet 15 00:00: 00 07-02 23:59 :00 No 500mg Q.5D Take 1 tablet (500 mg total) by mouth 2 (two) times daily for 90 days. [facility] gabapentin (NEURONTIN) 300 MG capsule 04-03 00:00: 00 07-02 23:59 :00 No 300mg Q.[id number] 3D Take 1 capsule (300 mg total) by mouth 3 (three) times daily for 90 days. [facility] aspirin 81 MG EC tablet 04-03 00:00: 00 07-02 23:59 :00 No 81mg QD Take 1 tablet (81 mg total) by mouth daily for 90 days. [facility] divalproex (DEPAKOTE) 500 MG EC tablet 04-03 00:00: 00 07-02 23:59 :00 No 500mg Q.5D Take 1 tablet (500 mg total) by mouth 2 (two) times daily for 90 days. [facility] gabapentin (NEURONTIN) 300 MG capsule 04-03 00:00: 00 07-02 23:59 :00 No 300mg Q.[id number] 3D Take 1 capsule (300 mg total) by mouth 3 (three) times daily for 90 days. [facility] aspirin 81 MG EC tablet 04-03 00:00: 00 07-02 23:59 :00 No 81mg QD Take 1 tablet (81 mg total) by mouth daily for 90 days. [facility] divalproex (DEPAKOTE) 500 MG EC tablet 04-03 00:00: 00 07-02 23:59 :00 No 500mg Q.5D Take 1 tablet (500 mg total) by mouth 2 (two) times daily for 90 days. [facility] gabapentin (NEURONTIN) 300 MG capsule 15 00:00: 00 07-02 23:59 :00 No 300mg Q.[id number] 3D Take 1 capsule (300 mg total) by mouth 3 (three) times daily for 90 days. [facility] aspirin 81 MG EC tablet 15 00:00: 00 07-02 23:59 :00 No 81mg QD Take 1 tablet (81 mg total) by mouth daily for 90 days. [facility] divalproex (DEPAKOTE) 500 MG EC tablet 04-03 00:00: 00 07-02 23:59 :00 No 500mg Q.5D Take 1 tablet (500 mg total) by mouth 2 (two) times daily for 90 days. [facility] gabapentin (NEURONTIN) 300 MG capsule 04-03 00:00: 00 07-02 23:59 :00 No 300mg Q.[id number] 3D Take 1 capsule (300 mg total) by mouth 3 (three) times daily for 90 days. [facility] aspirin 81 MG EC tablet 04-03 00:00: 00 07-02 23:59 :00 No 81mg QD Take 1 tablet (81 mg total) by mouth daily for 90 days. [facility] divalproex (DEPAKOTE) 500 MG EC tablet 04-03 00:00: 00 07-02 23:59 :00 No 500mg Q.5D Take 1 tablet (500 mg total) by mouth 2 (two) times daily for 90 days. [facility] gabapentin (NEURONTIN) 300 MG capsule 04-03 00:00: 00 07-02 23:59 :00 No 300mg Q.[id number] 3D Take 1 capsule (300 mg total) by mouth 3 (three) times daily for 90 days. [facility] aspirin 81 MG EC tablet 04-03 00:00: 00 07-02 23:59 :00 No 81mg QD Take 1 tablet (81 mg total) by mouth daily for 90 days. [facility] divalproex (DEPAKOTE) 500 MG EC tablet 04-03 00:00: 00 07-02 23:59 :00 No 500mg Q.5D Take 1 tablet (500 mg total) by mouth 2 (two) times daily for 90 days. [facility] gabapentin (NEURONTIN) 300 MG capsule 04-03 00:00: 00 07-02 23:59 :00 No 300mg Q.[id number] 3D Take 1 capsule (300 mg total) by mouth 3 (three) times daily for 90 days. [facility] aspirin 81 MG EC tablet 04-03 00:00: 00 07-02 23:59 :00 No 81mg QD Take 1 tablet (81 mg total) by mouth daily for 90 days. [facility] divalproex (DEPAKOTE) 500 MG EC tablet 04-03 00:00: 00 07-02 23:59 :00 No 500mg Q.5D Take 1 tablet (500 mg total) by mouth 2 (two) times daily for 90 days. [facility] gabapentin (NEURONTIN) 300 MG capsule 04-03 00:00: 00 07-02 23:59 :00 No 300mg Q.[id number] 3D Take 1 capsule (300 mg total) by mouth 3 (three) times daily for 90 days. [facility] aspirin 81 MG EC tablet 04-03 00:00: 00 07-02 23:59 :00 No 81mg QD Take 1 tablet (81 mg total) by mouth daily for 90 days. [facility] divalproex (DEPAKOTE) 500 MG EC tablet 04-03 00:00: 00 07-02 23:59 :00 No 500mg Q.5D Take 1 tablet (500 mg total) by mouth 2 (two) times daily for 90 days. [facility] gabapentin (NEURONTIN) 300 MG capsule 04-03 00:00: 00 07-02 23:59 :00 No 300mg Q.[id number] 3D Take 1 capsule (300 mg total) by mouth 3 (three) times daily for 90 days. [facility] aspirin 81 MG EC tablet 04-03 00:00: 00 07-02 23:59 :00 No 81mg QD Take 1 tablet (81 mg total) by mouth daily for 90 days. [facility] divalproex (DEPAKOTE) 500 MG EC tablet 04-03 00:00: 00 07-02 23:59 :00 No 500mg Q.5D Take 1 tablet (500 mg total) by mouth 2 (two) times daily for 90 days. [facility] gabapentin (NEURONTIN) 300 MG capsule 04-03 00:00: 00 07-02 23:59 :00 No 300mg Q.[id number] 3D Take 1 capsule (300 mg total) by mouth 3 (three) times daily for 90 days. [facility] aspirin 81 MG EC tablet 04-03 00:00: 00 07-02 23:59 :00 No 81mg QD Take 1 tablet (81 mg total) by mouth daily for 90 days. [facility] divalproex (DEPAKOTE) 500 MG EC tablet 04-03 00:00: 00 07-02 23:59 :00 No 500mg Q.5D Take 1 tablet (500 mg total) by mouth 2 (two) times daily for 90 days. [facility] gabapentin (NEURONTIN) 300 MG capsule 04-03 00:00: 00 07-02 23:59 :00 No 300mg Q.[id number] 3D Take 1 capsule (300 mg total) by mouth 3 (three) times daily for 90 days. [facility] aspirin 81 MG EC tablet 04-03 00:00: 00 07-02 23:59 :00 No 81mg QD Take 1 tablet (81 mg total) by mouth daily for 90 days. [facility] divalproex (DEPAKOTE) 500 MG EC tablet 04-03 00:00: 00 07-02 23:59 :00 No 500mg Q.5D Take 1 tablet (500 mg total) by mouth 2 (two) times daily for 90 days. [facility] gabapentin (NEURONTIN) 300 MG capsule 04-03 00:00: 00 07-02 23:59 :00 No 300mg Q.[id number] 3D Take 1 capsule (300 mg total) by mouth 3 (three) times daily for 90 days. [facility] aspirin 81 MG EC tablet 04-03 00:00: 00 07-02 23:59 :00 No 81mg QD Take 1 tablet (81 mg total) by mouth daily for 90 days. [facility] divalproex (DEPAKOTE) 500 MG EC tablet 04-03 00:00: 00 07-02 23:59 :00 No 500mg Q.5D Take 1 tablet (500 mg total) by mouth 2 (two) times daily for 90 days. [facility] gabapentin (NEURONTIN) 300 MG capsule 04-03 00:00: 00 07-02 23:59 :00 No 300mg Q.[id number] 3D Take 1 capsule (300 mg total) by mouth 3 (three) times daily for 90 days. [facility] aspirin 81 MG EC tablet 04-03 00:00: 00 07-02 23:59 :00 No 81mg QD Take 1 tablet (81 mg total) by mouth daily for 90 days. [facility] aspirin 81 MG EC tablet 04-03 00:00: 00 07-02 23:59 :00 No 81mg QD Take 1 tablet (81 mg total) by mouth daily for 90 days. [facility] divalproex (DEPAKOTE) 500 MG EC tablet 04-03 00:00: 00 07-02 23:59 :00 No 500mg Q.5D Take 1 tablet (500 mg total) by mouth 2 (two) times daily for 90 days. [facility] gabapentin (NEURONTIN) 300 MG capsule 04-03 00:00: 00 07-02 23:59 :00 No 300mg Q.[id number] 3D Take 1 capsule (300 mg total) by mouth 3 (three) times daily for 90 days. [facility] divalproex (DEPAKOTE) 500 MG EC tablet 04-03 00:00: 00 07-02 23:59 :00 No 500mg Q.5D Take 1 tablet (500 mg total) by mouth 2 (two) times daily for 90 days. [facility] gabapentin (NEURONTIN) 300 MG capsule 04-03 00:00: 00 07-02 23:59 :00 No 300mg Q.[id number] 3D Take 1 capsule (300 mg total) by mouth 3 (three) times daily for 90 days. [facility] aspirin 81 MG EC tablet 04-03 00:00: 00 07-02 23:59 :00 No 81mg QD Take 1 tablet (81 mg total) by mouth daily for 90 days. [facility] divalproex (DEPAKOTE) 500 MG EC tablet 04-03 00:00: 00 07-02 23:59 :00 No 500mg Q.5D Take 1 tablet (500 mg total) by mouth 2 (two) times daily for 90 days. [facility] gabapentin (NEURONTIN) 300 MG capsule 04-03 00:00: 00 07-02 23:59 :00 No 300mg Q.[id number] 3D Take 1 capsule (300 mg total) by mouth 3 (three) times daily for 90 days. [facility] aspirin 81 MG EC tablet 04-03 00:00: 00 07-02 23:59 :00 No 81mg QD Take 1 tablet (81 mg total) by mouth daily for 90 days. [facility] divalproex (DEPAKOTE) 500 MG EC tablet 04-03 00:00: 00 07-02 23:59 :00 No 500mg Q.5D Take 1 tablet (500 mg total) by mouth 2 (two) times daily for 90 days. [facility] gabapentin (NEURONTIN) 300 MG capsule 04-03 00:00: 00 07-02 23:59 :00 No 300mg Q.[id number] 3D Take 1 capsule (300 mg total) by mouth 3 (three) times daily for 90 days. [facility] aspirin 81 MG EC tablet 04-03 00:00: 00 07-02 23:59 :00 No 81mg QD Take 1 tablet (81 mg total) by mouth daily for 90 days. [facility] divalproex (DEPAKOTE) 500 MG EC tablet 04-03 00:00: 00 07-02 23:59 :00 No 500mg Q.5D Take 1 tablet (500 mg total) by mouth 2 (two) times daily for 90 days. [facility] gabapentin (NEURONTIN) 300 MG capsule 04-03 00:00: 00 07-02 23:59 :00 No 300mg Q.[id number] 3D Take 1 capsule (300 mg total) by mouth 3 (three) times daily for 90 days. [facility] aspirin 81 MG EC tablet 04-03 00:00: 00 07-02 23:59 :00 No 81mg QD Take 1 tablet (81 mg total) by mouth daily for 90 days. [facility] divalproex (DEPAKOTE) 500 MG EC tablet 04-03 00:00: 00 07-02 23:59 :00 No 500mg Q.5D Take 1 tablet (500 mg total) by mouth 2 (two) times daily for 90 days. [facility] gabapentin (NEURONTIN) 300 MG capsule 04-03 00:00: 00 07-02 23:59 :00 No 300mg Q.[id number] 3D Take 1 capsule (300 mg total) by mouth 3 (three) times daily for 90 days. [facility] aspirin 81 MG EC tablet 04-03 00:00: 00 07-02 23:59 :00 No 81mg QD Take 1 tablet (81 mg total) by mouth daily for 90 days. [facility] divalproex (DEPAKOTE) 500 MG EC tablet 04-03 00:00: 00 07-02 23:59 :00 No 500mg Q.5D Take 1 tablet (500 mg total) by mouth 2 (two) times daily for 90 days. [facility] gabapentin (NEURONTIN) 300 MG capsule 04-03 00:00: 00 07-02 23:59 :00 No 300mg Q.[id number] 3D Take 1 capsule (300 mg total) by mouth 3 (three) times daily for 90 days. [facility] aspirin 81 MG EC tablet 04-03 00:00: 00 07-02 23:59 :00 No 81mg QD Take 1 tablet (81 mg total) by mouth daily for 90 days. [facility] divalproex (DEPAKOTE) 500 MG EC tablet 04-03 00:00: 00 07-02 23:59 :00 No 500mg Q.5D Take 1 tablet (500 mg total) by mouth 2 (two) times daily for 90 days. [facility] gabapentin (NEURONTIN) 300 MG capsule 04-03 00:00: 00 07-02 23:59 :00 No 300mg Q.[id number] 3D Take 1 capsule (300 mg total) by mouth 3 (three) times daily for 90 days. [facility] aspirin 81 MG EC tablet 04-03 00:00: 00 07-02 23:59 :00 No 81mg QD Take 1 tablet (81 mg total) by mouth daily for 90 days. [facility] divalproex (DEPAKOTE) 500 MG EC tablet 04-03 00:00: 00 07-02 23:59 :00 No 500mg Q.5D Take 1 tablet (500 mg total) by mouth 2 (two) times daily for 90 days. [facility] gabapentin (NEURONTIN) 300 MG capsule 04-03 00:00: 00 07-02 23:59 :00 No 300mg Q.[id number] 3D Take 1 capsule (300 mg total) by mouth 3 (three) times daily for 90 days. [facility] aspirin 81 MG EC tablet 04-03 00:00: 07-02 23:59 :00 No 81mg QD Take 1 tablet (81 mg total) by mouth daily for 90 days. [facility] divalproex (DEPAKOTE) 500 MG EC tablet 04-03 00:00: 00 07-02 23:59 :00 No 500mg Q.5D Take 1 tablet (500 mg total) by mouth 2 (two) times daily for 90 days. [facility] gabapentin (NEURONTIN) 300 MG capsule 04-03 00:00: 00 07-02 23:59 :00 No 300mg Q.[id number] 3D Take 1 capsule (300 mg total) by mouth 3 (three) times daily for 90 days. [facility] aspirin 81 MG EC tablet 04-03 00:00: 00 07-02 23:59 :00 No 81mg QD Take 1 tablet (81 mg total) by mouth daily for 90 days. [facility] divalproex (DEPAKOTE) 500 MG EC tablet 04-03 00:00: 00 07-02 23:59 :00 No 500mg Q.5D Take 1 tablet (500 mg total) by mouth 2 (two) times daily for 90 days. [facility] gabapentin (NEURONTIN) 300 MG capsule 04-03 00:00: 00 07-02 23:59 :00 No 300mg Q.[id number] 3D Take 1 capsule (300 mg total) by mouth 3 (three) times daily for 90 days. [facility] aspirin 81 MG EC tablet 04-03 00:00: 00 07-02 23:59 :00 No 81mg QD Take 1 tablet (81 mg total) by mouth daily for 90 days. [facility] divalproex (DEPAKOTE) 500 MG EC tablet 04-03 00:00: 00 07-02 23:59 :00 No 500mg Q.5D Take 1 tablet (500 mg total) by mouth 2 (two) times daily for 90 days. [facility] gabapentin (NEURONTIN) 300 MG capsule 15 00:00: 00 07-02 23:59 :00 No 300mg Q.[id number] 3D Take 1 capsule (300 mg total) by mouth 3 (three) times daily for 90 days. [facility] aspirin 81 MG EC tablet 04-03 00:00: 00 07-02 23:59 :00 No 81mg QD Take 1 tablet (81 mg total) by mouth daily for 90 days. [facility] divalproex (DEPAKOTE) 500 MG EC tablet 04-03 00:00: 00 07-02 23:59 :00 No 500mg Q.5D Take 1 tablet (500 mg total) by mouth 2 (two) times daily for 90 days. [facility] gabapentin (NEURONTIN) 300 MG capsule 04-03 00:00: 00 07-02 23:59 :00 No 300mg Q.[id number] 3D Take 1 capsule (300 mg total) by mouth 3 (three) times daily for 90 days. [facility] aspirin 81 MG EC tablet 04-03 00:00: 00 07-02 23:59 :00 No 81mg QD Take 1 tablet (81 mg total) by mouth daily for 90 days. [facility] divalproex (DEPAKOTE) 500 MG EC tablet 04-03 00:00: 00 07-02 23:59 :00 No 500mg Q.5D Take 1 tablet (500 mg total) by mouth 2 (two) times daily for 90 days. [facility] gabapentin (NEURONTIN) 300 MG capsule 04-03 00:00: 00 07-02 23:59 :00 No 300mg Q.[id number] 3D Take 1 capsule (300 mg total) by mouth 3 (three) times daily for 90 days. [facility] aspirin 81 MG EC tablet 15 00:00: 00 07-02 23:59 :00 No 81mg QD Take 1 tablet (81 mg total) by mouth daily for 90 days. [facility] divalproex (DEPAKOTE) 500 MG EC tablet 04-03 00:00: 00 07-02 23:59 :00 No 500mg Q.5D Take 1 tablet (500 mg total) by mouth 2 (two) times daily for 90 days. [facility] gabapentin (NEURONTIN) 300 MG capsule 04-03 00:00: 00 07-02 23:59 :00 No 300mg Q.[id number] 3D Take 1 capsule (300 mg total) by mouth 3 (three) times daily for 90 days. [facility] aspirin 81 MG EC tablet 04-03 00:00: 00 07-02 23:59 :00 No 81mg QD Take 1 tablet (81 mg total) by mouth daily for 90 days. [facility] divalproex (DEPAKOTE) 500 MG EC tablet 04-03 00:00: 00 07-02 23:59 :00 No 500mg Q.5D Take 1 tablet (500 mg total) by mouth 2 (two) times daily for 90 days. [facility] gabapentin (NEURONTIN) 300 MG capsule 04-03 00:00: 00 07-02 23:59 :00 No 300mg Q.[id number] 3D Take 1 capsule (300 mg total) by mouth 3 (three) times daily for 90 days. [facility] aspirin 81 MG EC tablet 04-03 00:00: 00 07-02 23:59 :00 No 81mg QD Take 1 tablet (81 mg total) by mouth daily for 90 days. [facility] divalproex (DEPAKOTE) 500 MG EC tablet 04-03 00:00: 00 07-02 23:59 :00 No 500mg Q.5D Take 1 tablet (500 mg total) by mouth 2 (two) times daily for 90 days. [facility] gabapentin (NEURONTIN) 300 MG capsule 04-03 00:00: 00 07-02 23:59 :00 No 300mg Q.[id number] 3D Take 1 capsule (300 mg total) by mouth 3 (three) times daily for 90 days. [facility] DULoxetine (CYMBALTA) 30 MG capsule 2022-0 9-15 00:00: 00 06-16 00:00 :00 No 30mg QD Take 1 capsule (30 mg total) by mouth daily. [facility] DULoxetine (CYMBALTA) 30 MG capsule 2022-0 9-15 00:00: 00 06-16 00:00 :00 No 30mg QD Take 1 capsule (30 mg total) by mouth daily. [facility] DULoxetine (CYMBALTA) 30 MG capsule 0 9-15 00:00: 00 06-16 00:00 :00 No 30mg QD Take 1 capsule (30 mg total) by mouth daily. [facility] DULoxetine (CYMBALTA) 30 MG capsule 2022-0 9-15 00:00: 00 06-16 00:00 :00 No 30mg QD Take 1 capsule (30 mg total) by mouth daily. [facility] DULoxetine (CYMBALTA) 30 MG capsule 2022-0 9-15 00:00: 00 06-16 00:00 :00 No 30mg QD Take 1 capsule (30 mg total) by mouth daily. [facility] DULoxetine (CYMBALTA) 30 MG capsule 2022-0 9-15 00:00: 00 06-16 00:00 :00 No 30mg QD Take 1 capsule (30 mg total) by mouth daily. [facility] DULoxetine (CYMBALTA) 30 MG capsule 2022-0 9-15 00:00: 00 06-16 00:00 :00 No 30mg QD Take 1 capsule (30 mg total) by mouth daily. [facility] DULoxetine (CYMBALTA) 30 MG capsule 2022-0 9-15 00:00: 00 06-16 00:00 :00 No 30mg QD Take 1 capsule (30 mg total) by mouth daily. [facility] DULoxetine (CYMBALTA) 30 MG capsule 2022-0 9-15 00:00: 00 06-16 00:00 :00 No 30mg QD Take 1 capsule (30 mg total) by mouth daily. [facility] DULoxetine (CYMBALTA) 30 MG capsule 2022-0 9-15 00:00: 00 06-16 00:00 :00 No 30mg QD Take 1 capsule (30 mg total) by mouth daily. [facility] DULoxetine (CYMBALTA) 30 MG capsule 2022-0 9-15 00:00: 00 06-16 00:00 :00 No 30mg QD Take 1 capsule (30 mg total) by mouth daily. [facility] DULoxetine (CYMBALTA) 30 MG capsule 2022-0 -15 00:00: 00 06-16 00:00 :00 No 30mg QD Take 1 capsule (30 mg total) by mouth daily. [facility] DULoxetine (CYMBALTA) 30 MG capsule 2022-0 9-15 00:00: 00 06-16 00:00 :00 No 30mg QD Take 1 capsule (30 mg total) by mouth daily. [facility] DULoxetine (CYMBALTA) 30 MG capsule 2022-0 9-15 00:00: 00 06-16 00:00 :00 No 30mg QD Take 1 capsule (30 mg total) by mouth daily. [facility] DULoxetine (CYMBALTA) 30 MG capsule 2022-0 9-15 00:00: 00 06-16 00:00 :00 No 30mg QD Take 1 capsule (30 mg total) by mouth daily. [facility] DULoxetine (CYMBALTA) 30 MG capsule 2022-0 9-15 00:00: 00 06-16 00:00 :00 No 30mg QD Take 1 capsule (30 mg total) by mouth daily. [facility] DULoxetine (CYMBALTA) 30 MG capsule 2022-0 9-15 00:00: 00 06-16 00:00 :00 No 30mg QD Take 1 capsule (30 mg total) by mouth daily. [facility] DULoxetine (CYMBALTA) 30 MG capsule 2022-0 9-15 00:00: 00 06-16 00:00 :00 No 30mg QD Take 1 capsule (30 mg total) by mouth daily. [facility] DULoxetine (CYMBALTA) 30 MG capsule 2022-0 9-15 00:00: 00 06-16 00:00 :00 No 30mg QD Take 1 capsule (30 mg total) by mouth daily. [facility] DULoxetine (CYMBALTA) 30 MG capsule 0 9-15 00:00: 00 06-16 00:00 :00 No 30mg QD Take 1 capsule (30 mg total) by mouth daily. [facility] DULoxetine (CYMBALTA) 30 MG capsule 0 9-15 00:00: 00 06-16 00:00 :00 No 30mg QD Take 1 capsule (30 mg total) by mouth daily. [facility] DULoxetine (CYMBALTA) 30 MG capsule 2022-0 9-15 00:00: 00 06-16 00:00 :00 No 30mg QD Take 1 capsule (30 mg total) by mouth daily. [facility] DULoxetine (CYMBALTA) 30 MG capsule 2022-0 9-15 00:00: 00 06-16 00:00 :00 No 30mg QD Take 1 capsule (30 mg total) by mouth daily. [facility] DULoxetine (CYMBALTA) 30 MG capsule 2022-0 9-15 00:00: 00 06-16 00:00 :00 No 30mg QD Take 1 capsule (30 mg total) by mouth daily. [facility] DULoxetine (CYMBALTA) 30 MG capsule 2022-0 9-15 00:00: 00 06-16 00:00 :00 No 30mg QD Take 1 capsule (30 mg total) by mouth daily. [facility] DULoxetine (CYMBALTA) 30 MG capsule 2022-0 9-15 00:00: 00 06-16 00:00 :00 No 30mg QD Take 1 capsule (30 mg total) by mouth daily. [facility] lisinopriL (PRINIVIL,Z ESTRIL) 5 MG tablet 2022-0 9-15 00:00: 00 05-28 00:00 :00 No 5mg QD Take 1 tablet (5 mg total) by mouth daily. [facility] lisinopriL (PRINIVIL,Z ESTRIL) 5 MG tablet 2022-0 9-15 00:00: 00 05-28 00:00 :00 No 5mg QD Take 1 tablet (5 mg total) by mouth daily. [facility] lisinopriL (PRINIVIL,Z ESTRIL) 5 MG tablet 0 9-15 00:00: 00 05-28 00:00 :00 No 5mg QD Take 1 tablet (5 mg total) by mouth daily. [facility] lisinopriL (PRINIVIL,Z ESTRIL) 5 MG tablet -15 00:00: 00 05-28 00:00 :00 No 5mg QD Take 1 tablet (5 mg total) by mouth daily. [facility] lisinopriL (PRINIVIL,Z ESTRIL) 5 MG tablet 9-15 00:00: 00 05-28 00:00 :00 No 5mg QD Take 1 tablet (5 mg total) by mouth daily. [facility] lisinopriL (PRINIVIL,Z ESTRIL) 5 MG tablet -15 00:00: 00 05-28 00:00 :00 No 5mg QD Take 1 tablet (5 mg total) by mouth daily. [facility] lisinopriL (PRINIVIL,Z ESTRIL) 5 MG tablet 2022-0 9-15 00:00: 00 05-28 00:00 :00 No 5mg QD Take 1 tablet (5 mg total) by mouth daily. [facility] lisinopriL (PRINIVIL,Z ESTRIL) 5 MG tablet 2022-0 9-15 00:00: 00 05-28 00:00 :00 No 5mg QD Take 1 tablet (5 mg total) by mouth daily. [facility] lisinopriL (PRINIVIL,Z ESTRIL) 5 MG tablet 2022-0 9-15 00:00: 00 05-28 00:00 :00 No 5mg QD Take 1 tablet (5 mg total) by mouth daily. [facility] lisinopriL (PRINIVIL,Z ESTRIL) 5 MG tablet 04-03 00:00: 00 05-28 00:00 :00 No 5mg QD Take 1 tablet (5 mg total) by mouth daily. [facility] lisinopriL (PRINIVIL,Z ESTRIL) 5 MG tablet 04-03 00:00: 00 05-28 00:00 :00 No 5mg QD Take 1 tablet (5 mg total) by mouth daily. [facility] lisinopriL (PRINIVIL,Z ESTRIL) 5 MG tablet 04-03 00:00: 00 05-28 00:00 :00 No 5mg QD Take 1 tablet (5 mg total) by mouth daily. [facility] lisinopriL (PRINIVIL,Z ESTRIL) 5 MG tablet 04-03 00:00: 00 05-28 00:00 :00 No 5mg QD Take 1 tablet (5 mg total) by mouth daily. [facility] lisinopriL (PRINIVIL,Z ESTRIL) 5 MG tablet 04-03 00:00: 00 05-28 00:00 :00 No 5mg QD Take 1 tablet (5 mg total) by mouth daily. [facility] lisinopriL (PRINIVIL,Z ESTRIL) 5 MG tablet 04-03 00:00: 00 05-28 00:00 :00 No 5mg QD Take 1 tablet (5 mg total) by mouth daily. [facility] lisinopriL (PRINIVIL,Z ESTRIL) 5 MG tablet 04-03 00:00: 00 05-28 00:00 :00 No 5mg QD Take 1 tablet (5 mg total) by mouth daily. [facility] lisinopriL (PRINIVIL,Z ESTRIL) 5 MG tablet 04-03 00:00: 00 05-28 00:00 :00 No 5mg QD Take 1 tablet (5 mg total) by mouth daily. [facility] lisinopriL (PRINIVIL,Z ESTRIL) 5 MG tablet 04-03 00:00: 00 05-28 00:00 :00 No 5mg QD Take 1 tablet (5 mg total) by mouth daily. [facility] lisinopriL (PRINIVIL,Z ESTRIL) 5 MG tablet 04-03 00:00: 00 05-28 00:00 :00 No 5mg QD Take 1 tablet (5 mg total) by mouth daily. [facility] lisinopriL (PRINIVIL,Z ESTRIL) 5 MG tablet 04-03 00:00: 00 05-28 00:00 :00 No 5mg QD Take 1 tablet (5 mg total) by mouth daily. [facility] lisinopriL (PRINIVIL,Z ESTRIL) 5 MG tablet 04-03 00:00: 00 05-28 00:00 :00 No 5mg QD Take 1 tablet (5 mg total) by mouth daily. [facility] lisinopriL (PRINIVIL,Z ESTRIL) 5 MG tablet 04-03 00:00: 00 05-28 00:00 :00 No 5mg QD Take 1 tablet (5 mg total) by mouth daily. [facility] lisinopriL (PRINIVIL,Z ESTRIL) 5 MG tablet 04-03 00:00: 00 05-28 00:00 :00 No 5mg QD Take 1 tablet (5 mg total) by mouth daily. [facility] lisinopriL (PRINIVIL,Z ESTRIL) 5 MG tablet - 00:00: 00 05-28 00:00 :00 No 5mg QD Take 1 tablet (5 mg total) by mouth daily. [facility] lisinopriL (PRINIVIL,Z ESTRIL) 5 MG tablet - 00:00: 00 05-28 00:00 :00 No 5mg QD Take 1 tablet (5 mg total) by mouth daily. [facility] lisinopriL (PRINIVIL,Z ESTRIL) 5 MG tablet -15 00:00: 00 05-28 00:00 :00 No 5mg QD Take 1 tablet (5 mg total) by mouth daily. [facility] lisinopriL (PRINIVIL,Z ESTRIL) 5 MG tablet 0 -15 00:00: 00 05-28 00:00 :00 No 5mg QD Take 1 tablet (5 mg total) by mouth daily. [facility] lisinopriL (PRINIVIL,Z ESTRIL) 5 MG tablet - 00:00: 00 05-28 00:00 :00 No 5mg QD Take 1 tablet (5 mg total) by mouth daily. [facility] lisinopriL (PRINIVIL,Z ESTRIL) 5 MG tablet 0 04-03 00:00: 00 05-28 00:00 :00 No 5mg QD Take 1 tablet (5 mg total) by mouth daily. [facility] lisinopriL (PRINIVIL,Z ESTRIL) 5 MG tablet 04-03 00:00: 00 05-28 00:00 :00 No 5mg QD Take 1 tablet (5 mg total) by mouth daily. [facility] clonazePAM (KlonoPIN) 0.5 MG tablet 15 00:00: 00 05-03 23:59 :00 No .25mg Take 0.5 tablets (0.25 mg total) by mouth 2 (two) times daily as needed for Anxiety for up to 30 days. Max Daily Amount: 0.5 mg [facility] clonazePAM (KlonoPIN) 0.5 MG tablet 0 -15 00:00: 00 05-03 23:59 :00 No .25mg Take 0.5 tablets (0.25 mg total) by mouth 2 (two) times daily as needed for Anxiety for up to 30 days. Max Daily Amount: 0.5 mg [facility] clonazePAM (KlonoPIN) 0.5 MG tablet 04-03 00:00: 00 05-03 23:59 :00 No .25mg Take 0.5 tablets (0.25 mg total) by mouth 2 (two) times daily as needed for Anxiety for up to 30 days. Max Daily Amount: 0.5 mg [facility] clonazePAM (KlonoPIN) 0.5 MG tablet 04-03 00:00: 00 05-03 23:59 :00 No .25mg Take 0.5 tablets (0.25 mg total) by mouth 2 (two) times daily as needed for Anxiety for up to 30 days. Max Daily Amount: 0.5 mg [facility] clonazePAM (KlonoPIN) 0.5 MG tablet 04-03 00:00: 00 05-03 23:59 :00 No .25mg Take 0.5 tablets (0.25 mg total) by mouth 2 (two) times daily as needed for Anxiety for up to 30 days. Max Daily Amount: 0.5 mg [facility] clonazePAM (KlonoPIN) 0.5 MG tablet 04-03 00:00: 00 05-03 23:59 :00 No .25mg Take 0.5 tablets (0.25 mg total) by mouth 2 (two) times daily as needed for Anxiety for up to 30 days. Max Daily Amount: 0.5 mg [facility] clonazePAM (KlonoPIN) 0.5 MG tablet 04-03 00:00: 00 05-03 23:59 :00 No .25mg Take 0.5 tablets (0.25 mg total) by mouth 2 (two) times daily as needed for Anxiety for up to 30 days. Max Daily Amount: 0.5 mg [facility] clonazePAM (KlonoPIN) 0.5 MG tablet 04-03 00:00: 00 05-03 23:59 :00 No .25mg Take 0.5 tablets (0.25 mg total) by mouth 2 (two) times daily as needed for Anxiety for up to 30 days. Max Daily Amount: 0.5 mg [facility] clonazePAM (KlonoPIN) 0.5 MG tablet 2023-0 9-15 00:00: 00 05-03 23:59 :00 No .25mg Take 0.5 tablets (0.25 mg total) by mouth 2 (two) times daily as needed for Anxiety for up to 30 days. Max Daily Amount: 0.5 mg [facility] clonazePAM (KlonoPIN) 0.5 MG tablet 0 15 00:00: 00 05-03 23:59 :00 No .25mg Take 0.5 tablets (0.25 mg total) by mouth 2 (two) times daily as needed for Anxiety for up to 30 days. Max Daily Amount: 0.5 mg [facility] clonazePAM (KlonoPIN) 0.5 MG tablet 0 04-03 00:00: 00 05-03 23:59 :00 No .25mg Take 0.5 tablets (0.25 mg total) by mouth 2 (two) times daily as needed for Anxiety for up to 30 days. Max Daily Amount: 0.5 mg [facility] clonazePAM (KlonoPIN) 0.5 MG tablet 0 04-03 00:00: 00 05-03 23:59 :00 No .25mg Take 0.5 tablets (0.25 mg total) by mouth 2 (two) times daily as needed for Anxiety for up to 30 days. Max Daily Amount: 0.5 mg [facility] clonazePAM (KlonoPIN) 0.5 MG tablet 0 15 00:00: 00 05-03 23:59 :00 No .25mg Take 0.5 tablets (0.25 mg total) by mouth 2 (two) times daily as needed for Anxiety for up to 30 days. Max Daily Amount: 0.5 mg [facility] clonazePAM (KlonoPIN) 0.5 MG tablet 0 15 00:00: 00 05-03 23:59 :00 No .25mg Take 0.5 tablets (0.25 mg total) by mouth 2 (two) times daily as needed for Anxiety for up to 30 days. Max Daily Amount: 0.5 mg [facility] clonazePAM (KlonoPIN) 0.5 MG tablet 2022-0 9-15 00:00: 00 05-03 23:59 :00 No .25mg Take 0.5 tablets (0.25 mg total) by mouth 2 (two) times daily as needed for Anxiety for up to 30 days. Max Daily Amount: 0.5 mg [facility] clonazePAM (KlonoPIN) 0.5 MG tablet 04-03 00:00: 00 05-03 23:59 :00 No .25mg Take 0.5 tablets (0.25 mg total) by mouth 2 (two) times daily as needed for Anxiety for up to 30 days. Max Daily Amount: 0.5 mg [facility] clonazePAM (KlonoPIN) 0.5 MG tablet 04-03 00:00: 00 05-03 23:59 :00 No .25mg Take 0.5 tablets (0.25 mg total) by mouth 2 (two) times daily as needed for Anxiety for up to 30 days. Max Daily Amount: 0.5 mg [facility] clonazePAM (KlonoPIN) 0.5 MG tablet 04-03 00:00: 00 05-03 23:59 :00 No .25mg Take 0.5 tablets (0.25 mg total) by mouth 2 (two) times daily as needed for Anxiety for up to 30 days. Max Daily Amount: 0.5 mg [facility] clonazePAM (KlonoPIN) 0.5 MG tablet 04-03 00:00: 00 05-03 23:59 :00 No .25mg Take 0.5 tablets (0.25 mg total) by mouth 2 (two) times daily as needed for Anxiety for up to 30 days. Max Daily Amount: 0.5 mg [facility] clonazePAM (KlonoPIN) 0.5 MG tablet 0 04-03 00:00: 00 05-03 23:59 :00 No .25mg Take 0.5 tablets (0.25 mg total) by mouth 2 (two) times daily as needed for Anxiety for up to 30 days. Max Daily Amount: 0.5 mg [facility] clonazePAM (KlonoPIN) 0.5 MG tablet 04-03 00:00: 00 05-03 23:59 :00 No .25mg Take 0.5 tablets (0.25 mg total) by mouth 2 (two) times daily as needed for Anxiety for up to 30 days. Max Daily Amount: 0.5 mg [facility] clonazePAM (KlonoPIN) 0.5 MG tablet 04-03 00:00: 00 05-03 23:59 :00 No .25mg Take 0.5 tablets (0.25 mg total) by mouth 2 (two) times daily as needed for Anxiety for up to 30 days. Max Daily Amount: 0.5 mg [facility] clonazePAM (KlonoPIN) 0.5 MG tablet 04-03 00:00: 00 05-03 23:59 :00 No .25mg Take 0.5 tablets (0.25 mg total) by mouth 2 (two) times daily as needed for Anxiety for up to 30 days. Max Daily Amount: 0.5 mg [facility] clonazePAM (KlonoPIN) 0.5 MG tablet 04-03 00:00: 00 05-03 23:59 :00 No .25mg Take 0.5 tablets (0.25 mg total) by mouth 2 (two) times daily as needed for Anxiety for up to 30 days. Max Daily Amount: 0.5 mg [facility] clonazePAM (KlonoPIN) 0.5 MG tablet 04-03 00:00: 00 05-03 23:59 :00 No .25mg Take 0.5 tablets (0.25 mg total) by mouth 2 (two) times daily as needed for Anxiety for up to 30 days. Max Daily Amount: 0.5 mg [facility] clonazePAM (KlonoPIN) 0.5 MG tablet 0 04-03 00:00: 00 05-03 23:59 :00 No .25mg Take 0.5 tablets (0.25 mg total) by mouth 2 (two) times daily as needed for Anxiety for up to 30 days. Max Daily Amount: 0.5 mg [facility] clonazePAM (KlonoPIN) 0.5 MG tablet 04-03 00:00: 00 05-03 23:59 :00 No .25mg Take 0.5 tablets (0.25 mg total) by mouth 2 (two) times daily as needed for Anxiety for up to 30 days. Max Daily Amount: 0.5 mg [facility] clonazePAM (KlonoPIN) 0.5 MG tablet 04-03 00:00: 00 05-03 23:59 :00 No .25mg Take 0.5 tablets (0.25 mg total) by mouth 2 (two) times daily as needed for Anxiety for up to 30 days. Max Daily Amount: 0.5 mg [facility] clonazePAM (KlonoPIN) 0.5 MG tablet 04-03 00:00: 00 05-03 23:59 :00 No .25mg Take 0.5 tablets (0.25 mg total) by mouth 2 (two) times daily as needed for Anxiety for up to 30 days. Max Daily Amount: 0.5 mg [facility] clonazePAM (KlonoPIN) 0.5 MG tablet 04-03 00:00: 00 05-03 23:59 :00 No .25mg Take 0.5 tablets (0.25 mg total) by mouth 2 (two) times daily as needed for Anxiety for up to 30 days. Max Daily Amount: 0.5 mg [facility] clonazePAM (KlonoPIN) 0.5 MG tablet 04-03 00:00: 00 05-03 23:59 :00 No .25mg Take 0.5 tablets (0.25 mg total) by mouth 2 (two) times daily as needed for Anxiety for up to 30 days. Max Daily Amount: 0.5 mg [facility] clonazePAM (KlonoPIN) 0.5 MG tablet 0 15 00:00: 00 05-03 23:59 :00 No .25mg Take 0.5 tablets (0.25 mg total) by mouth 2 (two) times daily as needed for Anxiety for up to 30 days. Max Daily Amount: 0.5 mg [facility] clonazePAM (KlonoPIN) 0.5 MG tablet 2022-0 04-03 00:00: 00 05-03 23:59 :00 No .25mg Take 0.5 tablets (0.25 mg total) by mouth 2 (two) times daily as needed for Anxiety for up to 30 days. Max Daily Amount: 0.5 mg [facility] clonazePAM (KlonoPIN) 0.5 MG tablet 04-03 00:00: 00 05-03 23:59 :00 No .25mg Take 0.5 tablets (0.25 mg total) by mouth 2 (two) times daily as needed for Anxiety for up to 30 days. Max Daily Amount: 0.5 mg [facility] clonazePAM (KlonoPIN) 0.5 MG tablet 04-03 00:00: 00 05-03 23:59 :00 No .25mg Take 0.5 tablets (0.25 mg total) by mouth 2 (two) times daily as needed for Anxiety for up to 30 days. Max Daily Amount: 0.5 mg [facility] clonazePAM (KlonoPIN) 0.5 MG tablet 04-03 00:00: 00 05-03 23:59 :00 No .25mg Take 0.5 tablets (0.25 mg total) by mouth 2 (two) times daily as needed for Anxiety for up to 30 days. Max Daily Amount: 0.5 mg [facility] clonazePAM (KlonoPIN) 0.5 MG tablet 04-03 00:00: 00 05-03 23:59 :00 No .25mg Take 0.5 tablets (0.25 mg total) by mouth 2 (two) times daily as needed for Anxiety for up to 30 days. Max Daily Amount: 0.5 mg [facility] clonazePAM (KlonoPIN) 0.5 MG tablet 04-03 00:00: 00 05-03 23:59 :00 No .25mg Take 0.5 tablets (0.25 mg total) by mouth 2 (two) times daily as needed for Anxiety for up to 30 days. Max Daily Amount: 0.5 mg [facility] clonazePAM (KlonoPIN) 0.5 MG tablet 04-03 00:00: 00 05-03 23:59 :00 No .25mg Take 0.5 tablets (0.25 mg total) by mouth 2 (two) times daily as needed for Anxiety for up to 30 days. Max Daily Amount: 0.5 mg [facility] HYDROcodone -acetaminop hen (NORCO 10-325) 10-325 mg per tablet 04-03 00:00: 00 04-13 23:59 :00 No 1{tbl} Take 1 tablet by mouth every 6 (six) hours as needed for up to 10 days. Max Daily Amount: 4 tablets [facility] methocarbam oL (ROBAXIN) 500 MG tablet 04-03 00:00: 00 04-13 23:59 :00 No 500mg Q.25D Take 1 tablet (500 mg total) by mouth 4 (four) times daily for 10 days. [facility] HYDROcodone -acetaminop hen (NORCO 10-325) 10-325 mg per tablet 04-03 00:00: 00 04-13 23:59 :00 No 1{tbl} Take 1 tablet by mouth every 6 (six) hours as needed for up to 10 days. Max Daily Amount: 4 tablets [facility] methocarbam oL (ROBAXIN) 500 MG tablet 04-03 00:00: 00 04-13 23:59 :00 No 500mg Q.25D Take 1 tablet (500 mg total) by mouth 4 (four) times daily for 10 days. [facility] HYDROcodone -acetaminop hen (NORCO 10-325) 10-325 mg per tablet 04-03 00:00: 00 04-13 23:59 :00 No 1{tbl} Take 1 tablet by mouth every 6 (six) hours as needed for up to 10 days. Max Daily Amount: 4 tablets [facility] methocarbam oL (ROBAXIN) 500 MG tablet 04-03 00:00: 00 04-13 23:59 :00 No 500mg Q.25D Take 1 tablet (500 mg total) by mouth 4 (four) times daily for 10 days. [facility] HYDROcodone -acetaminop hen (NORCO 10-325) 10-325 mg per tablet 15 00:00: 00 04-13 23:59 :00 No 1{tbl} Take 1 tablet by mouth every 6 (six) hours as needed for up to 10 days. Max Daily Amount: 4 tablets [facility] methocarbam oL (ROBAXIN) 500 MG tablet 04-03 00:00: 00 04-13 23:59 :00 No 500mg Q.25D Take 1 tablet (500 mg total) by mouth 4 (four) times daily for 10 days. [facility] HYDROcodone -acetaminop hen (NORCO 10-325) 10-325 mg per tablet 04-03 00:00: 00 04-13 23:59 :00 No 1{tbl} Take 1 tablet by mouth every 6 (six) hours as needed for up to 10 days. Max Daily Amount: 4 tablets [facility] methocarbam oL (ROBAXIN) 500 MG tablet 04-03 00:00: 00 04-13 23:59 :00 No 500mg Q.25D Take 1 tablet (500 mg total) by mouth 4 (four) times daily for 10 days. [facility] HYDROcodone -acetaminop hen (NORCO 10-325) 10-325 mg per tablet 04-03 00:00: 00 04-13 23:59 :00 No 1{tbl} Take 1 tablet by mouth every 6 (six) hours as needed for up to 10 days. Max Daily Amount: 4 tablets [facility] methocarbam oL (ROBAXIN) 500 MG tablet 04-03 00:00: 00 04-13 23:59 :00 No 500mg Q.25D Take 1 tablet (500 mg total) by mouth 4 (four) times daily for 10 days. [facility] HYDROcodone -acetaminop hen (NORCO 10-325) 10-325 mg per tablet 15 00:00: 00 04-13 23:59 :00 No 1{tbl} Take 1 tablet by mouth every 6 (six) hours as needed for up to 10 days. Max Daily Amount: 4 tablets [facility] methocarbam oL (ROBAXIN) 500 MG tablet -15 00:00: 00 04-13 23:59 :00 No 500mg Q.25D Take 1 tablet (500 mg total) by mouth 4 (four) times daily for 10 days. [facility] HYDROcodone -acetaminop hen (NORCO 10-325) 10-325 mg per tablet 04-03 00:00: 00 04-13 23:59 :00 No 1{tbl} Take 1 tablet by mouth every 6 (six) hours as needed for up to 10 days. Max Daily Amount: 4 tablets [facility] methocarbam oL (ROBAXIN) 500 MG tablet 04-03 00:00: 00 04-13 23:59 :00 No 500mg Q.25D Take 1 tablet (500 mg total) by mouth 4 (four) times daily for 10 days. [facility] HYDROcodone -acetaminop hen (NORCO 10-325) 10-325 mg per tablet 15 00:00: 00 04-13 23:59 :00 No 1{tbl} Take 1 tablet by mouth every 6 (six) hours as needed for up to 10 days. Max Daily Amount: 4 tablets [facility] methocarbam oL (ROBAXIN) 500 MG tablet 04-03 00:00: 00 04-13 23:59 :00 No 500mg Q.25D Take 1 tablet (500 mg total) by mouth 4 (four) times daily for 10 days. [facility] HYDROcodone -acetaminop hen (NORCO 10-325) 10-325 mg per tablet 15 00:00: 00 04-13 23:59 :00 No 1{tbl} Take 1 tablet by mouth every 6 (six) hours as needed for up to 10 days. Max Daily Amount: 4 tablets [facility] methocarbam oL (ROBAXIN) 500 MG tablet -15 00:00: 00 04-13 23:59 :00 No 500mg Q.25D Take 1 tablet (500 mg total) by mouth 4 (four) times daily for 10 days. [facility] HYDROcodone -acetaminop hen (NORCO 10-325) 10-325 mg per tablet 04-03 00:00: 00 04-13 23:59 :00 No 1{tbl} Take 1 tablet by mouth every 6 (six) hours as needed for up to 10 days. Max Daily Amount: 4 tablets [facility] methocarbam oL (ROBAXIN) 500 MG tablet 04-03 00:00: 00 04-13 23:59 :00 No 500mg Q.25D Take 1 tablet (500 mg total) by mouth 4 (four) times daily for 10 days. [facility] HYDROcodone -acetaminop hen (NORCO 10-325) 10-325 mg per tablet 04-03 00:00: 00 04-13 23:59 :00 No 1{tbl} Take 1 tablet by mouth every 6 (six) hours as needed for up to 10 days. Max Daily Amount: 4 tablets [facility] methocarbam oL (ROBAXIN) 500 MG tablet 04-03 00:00: 00 04-13 23:59 :00 No 500mg Q.25D Take 1 tablet (500 mg total) by mouth 4 (four) times daily for 10 days. [facility] HYDROcodone -acetaminop hen (NORCO 10-325) 10-325 mg per tablet 04-03 00:00: 00 04-13 23:59 :00 No 1{tbl} Take 1 tablet by mouth every 6 (six) hours as needed for up to 10 days. Max Daily Amount: 4 tablets [facility] methocarbam oL (ROBAXIN) 500 MG tablet 04-03 00:00: 00 04-13 23:59 :00 No 500mg Q.25D Take 1 tablet (500 mg total) by mouth 4 (four) times daily for 10 days. [facility] HYDROcodone -acetaminop hen (NORCO 10-325) 10-325 mg per tablet 04-03 00:00: 00 04-13 23:59 :00 No 1{tbl} Take 1 tablet by mouth every 6 (six) hours as needed for up to 10 days. Max Daily Amount: 4 tablets [facility] methocarbam oL (ROBAXIN) 500 MG tablet 04-03 00:00: 00 04-13 23:59 :00 No 500mg Q.25D Take 1 tablet (500 mg total) by mouth 4 (four) times daily for 10 days. [facility] HYDROcodone -acetaminop hen (NORCO 10-325) 10-325 mg per tablet 04-03 00:00: 00 04-13 23:59 :00 No 1{tbl} Take 1 tablet by mouth every 6 (six) hours as needed for up to 10 days. Max Daily Amount: 4 tablets [facility] methocarbam oL (ROBAXIN) 500 MG tablet 04-03 00:00: 00 04-13 23:59 :00 No 500mg Q.25D Take 1 tablet (500 mg total) by mouth 4 (four) times daily for 10 days. [facility] HYDROcodone -acetaminop hen (NORCO 10-325) 10-325 mg per tablet 04-03 00:00: 00 04-13 23:59 :00 No 1{tbl} Take 1 tablet by mouth every 6 (six) hours as needed for up to 10 days. Max Daily Amount: 4 tablets [facility] methocarbam oL (ROBAXIN) 500 MG tablet 04-03 00:00: 00 04-13 23:59 :00 No 500mg Q.25D Take 1 tablet (500 mg total) by mouth 4 (four) times daily for 10 days. [facility] HYDROcodone -acetaminop hen (NORCO 10-325) 10-325 mg per tablet 04-03 00:00: 00 04-13 23:59 :00 No 1{tbl} Take 1 tablet by mouth every 6 (six) hours as needed for up to 10 days. Max Daily Amount: 4 tablets [facility] methocarbam oL (ROBAXIN) 500 MG tablet 04-03 00:00: 00 04-13 23:59 :00 No 500mg Q.25D Take 1 tablet (500 mg total) by mouth 4 (four) times daily for 10 days. [facility] HYDROcodone -acetaminop hen (NORCO 10-325) 10-325 mg per tablet 04-03 00:00: 00 04-13 23:59 :00 No 1{tbl} Take 1 tablet by mouth every 6 (six) hours as needed for up to 10 days. Max Daily Amount: 4 tablets [facility] methocarbam oL (ROBAXIN) 500 MG tablet 04-03 00:00: 00 04-13 23:59 :00 No 500mg Q.25D Take 1 tablet (500 mg total) by mouth 4 (four) times daily for 10 days. [facility] HYDROcodone -acetaminop hen (NORCO 10-325) 10-325 mg per tablet 04-03 00:00: 00 04-13 23:59 :00 No 1{tbl} Take 1 tablet by mouth every 6 (six) hours as needed for up to 10 days. Max Daily Amount: 4 tablets [facility] methocarbam oL (ROBAXIN) 500 MG tablet 04-03 00:00: 00 04-13 23:59 :00 No 500mg Q.25D Take 1 tablet (500 mg total) by mouth 4 (four) times daily for 10 days. [facility] HYDROcodone -acetaminop hen (NORCO 10-325) 10-325 mg per tablet 04-03 00:00: 00 04-13 23:59 :00 No 1{tbl} Take 1 tablet by mouth every 6 (six) hours as needed for up to 10 days. Max Daily Amount: 4 tablets [facility] methocarbam oL (ROBAXIN) 500 MG tablet 04-03 00:00: 00 04-13 23:59 :00 No 500mg Q.25D Take 1 tablet (500 mg total) by mouth 4 (four) times daily for 10 days. [facility] HYDROcodone -acetaminop hen (NORCO 10-325) 10-325 mg per tablet 15 00:00: 00 04-13 23:59 :00 No 1{tbl} Take 1 tablet by mouth every 6 (six) hours as needed for up to 10 days. Max Daily Amount: 4 tablets [facility] methocarbam oL (ROBAXIN) 500 MG tablet 04-03 00:00: 00 04-13 23:59 :00 No 500mg Q.25D Take 1 tablet (500 mg total) by mouth 4 (four) times daily for 10 days. [facility] HYDROcodone -acetaminop hen (NORCO 10-325) 10-325 mg per tablet 04-03 00:00: 00 04-13 23:59 :00 No 1{tbl} Take 1 tablet by mouth every 6 (six) hours as needed for up to 10 days. Max Daily Amount: 4 tablets [facility] methocarbam oL (ROBAXIN) 500 MG tablet 04-03 00:00: 00 04-13 23:59 :00 No 500mg Q.25D Take 1 tablet (500 mg total) by mouth 4 (four) times daily for 10 days. [facility] HYDROcodone -acetaminop hen (NORCO 10-325) 10-325 mg per tablet 04-03 00:00: 00 04-13 23:59 :00 No 1{tbl} Take 1 tablet by mouth every 6 (six) hours as needed for up to 10 days. Max Daily Amount: 4 tablets [facility] methocarbam oL (ROBAXIN) 500 MG tablet 04-03 00:00: 00 04-13 23:59 :00 No 500mg Q.25D Take 1 tablet (500 mg total) by mouth 4 (four) times daily for 10 days. [facility] HYDROcodone -acetaminop hen (NORCO 10-325) 10-325 mg per tablet 04-03 00:00: 00 04-13 23:59 :00 No 1{tbl} Take 1 tablet by mouth every 6 (six) hours as needed for up to 10 days. Max Daily Amount: 4 tablets [facility] methocarbam oL (ROBAXIN) 500 MG tablet 15 00:00: 00 04-13 23:59 :00 No 500mg Q.25D Take 1 tablet (500 mg total) by mouth 4 (four) times daily for 10 days. [facility] HYDROcodone -acetaminop hen (NORCO 10-325) 10-325 mg per tablet 04-03 00:00: 00 04-13 23:59 :00 No 1{tbl} Take 1 tablet by mouth every 6 (six) hours as needed for up to 10 days. Max Daily Amount: 4 tablets [facility] methocarbam oL (ROBAXIN) 500 MG tablet 04-03 00:00: 00 04-13 23:59 :00 No 500mg Q.25D Take 1 tablet (500 mg total) by mouth 4 (four) times daily for 10 days. [facility] HYDROcodone -acetaminop hen (NORCO 10-325) 10-325 mg per tablet 04-03 00:00: 00 04-13 23:59 :00 No 1{tbl} Take 1 tablet by mouth every 6 (six) hours as needed for up to 10 days. Max Daily Amount: 4 tablets [facility] methocarbam oL (ROBAXIN) 500 MG tablet 04-03 00:00: 00 04-13 23:59 :00 No 500mg Q.25D Take 1 tablet (500 mg total) by mouth 4 (four) times daily for 10 days. [facility] HYDROcodone -acetaminop hen (NORCO 10-325) 10-325 mg per tablet 15 00:00: 00 04-13 23:59 :00 No 1{tbl} Take 1 tablet by mouth every 6 (six) hours as needed for up to 10 days. Max Daily Amount: 4 tablets [facility] methocarbam oL (ROBAXIN) 500 MG tablet 15 00:00: 00 04-13 23:59 :00 No 500mg Q.25D Take 1 tablet (500 mg total) by mouth 4 (four) times daily for 10 days. [facility] HYDROcodone -acetaminop hen (NORCO 10-325) 10-325 mg per tablet 04-03 00:00: 00 04-13 23:59 :00 No 1{tbl} Take 1 tablet by mouth every 6 (six) hours as needed for up to 10 days. Max Daily Amount: 4 tablets [facility] methocarbam oL (ROBAXIN) 500 MG tablet 04-03 00:00: 00 04-13 23:59 :00 No 500mg Q.25D Take 1 tablet (500 mg total) by mouth 4 (four) times daily for 10 days. [facility] HYDROcodone -acetaminop hen (NORCO 10-325) 10-325 mg per tablet 04-03 00:00: 00 04-13 23:59 :00 No 1{tbl} Take 1 tablet by mouth every 6 (six) hours as needed for up to 10 days. Max Daily Amount: 4 tablets [facility] methocarbam oL (ROBAXIN) 500 MG tablet 04-03 00:00: 00 04-13 23:59 :00 No 500mg Q.25D Take 1 tablet (500 mg total) by mouth 4 (four) times daily for 10 days. [facility] HYDROcodone -acetaminop hen (NORCO 10-325) 10-325 mg per tablet 04-03 00:00: 00 04-13 23:59 :00 No 1{tbl} Take 1 tablet by mouth every 6 (six) hours as needed for up to 10 days. Max Daily Amount: 4 tablets [facility] methocarbam oL (ROBAXIN) 500 MG tablet 04-03 00:00: 00 04-13 23:59 :00 No 500mg Q.25D Take 1 tablet (500 mg total) by mouth 4 (four) times daily for 10 days. [facility] HYDROcodone -acetaminop hen (NORCO 10-325) 10-325 mg per tablet 04-03 00:00: 00 04-13 23:59 :00 No 1{tbl} Take 1 tablet by mouth every 6 (six) hours as needed for up to 10 days. Max Daily Amount: 4 tablets [facility] methocarbam oL (ROBAXIN) 500 MG tablet 04-03 00:00: 00 04-13 23:59 :00 No 500mg Q.25D Take 1 tablet (500 mg total) by mouth 4 (four) times daily for 10 days. [facility] HYDROcodone -acetaminop hen (NORCO 10-325) 10-325 mg per tablet 04-03 00:00: 00 04-13 23:59 :00 No 1{tbl} Take 1 tablet by mouth every 6 (six) hours as needed for up to 10 days. Max Daily Amount: 4 tablets [facility] methocarbam oL (ROBAXIN) 500 MG tablet 04-03 00:00: 00 04-13 23:59 :00 No 500mg Q.25D Take 1 tablet (500 mg total) by mouth 4 (four) times daily for 10 days. [facility] HYDROcodone -acetaminop hen (NORCO 10-325) 10-325 mg per tablet 04-03 00:00: 00 04-13 23:59 :00 No 1{tbl} Take 1 tablet by mouth every 6 (six) hours as needed for up to 10 days. Max Daily Amount: 4 tablets [facility] methocarbam oL (ROBAXIN) 500 MG tablet 04-03 00:00: 00 04-13 23:59 :00 No 500mg Q.25D Take 1 tablet (500 mg total) by mouth 4 (four) times daily for 10 days. [facility] HYDROcodone -acetaminop hen (NORCO 10-325) 10-325 mg per tablet 04-03 00:00: 00 04-13 23:59 :00 No 1{tbl} Take 1 tablet by mouth every 6 (six) hours as needed for up to 10 days. Max Daily Amount: 4 tablets [facility] methocarbam oL (ROBAXIN) 500 MG tablet 04-03 00:00: 00 04-13 23:59 :00 No 500mg Q.25D Take 1 tablet (500 mg total) by mouth 4 (four) times daily for 10 days. [facility] HYDROcodone -acetaminop hen (NORCO 10-325) 10-325 mg per tablet 04-03 00:00: 00 04-13 23:59 :00 No 1{tbl} Take 1 tablet by mouth every 6 (six) hours as needed for up to 10 days. Max Daily Amount: 4 tablets [facility] methocarbam oL (ROBAXIN) 500 MG tablet 04-03 00:00: 00 04-13 23:59 :00 No 500mg Q.25D Take 1 tablet (500 mg total) by mouth 4 (four) times daily for 10 days. [facility] HYDROcodone -acetaminop hen (NORCO 10-325) 10-325 mg per tablet 04-03 00:00: 00 04-13 23:59 :00 No 1{tbl} Take 1 tablet by mouth every 6 (six) hours as needed for up to 10 days. Max Daily Amount: 4 tablets [facility] methocarbam oL (ROBAXIN) 500 MG tablet 04-03 00:00: 00 04-13 23:59 :00 No 500mg Q.25D Take 1 tablet (500 mg total) by mouth 4 (four) times daily for 10 days. [facility] HYDROcodone -acetaminop hen (NORCO 10-325) 10-325 mg per tablet 04-03 00:00: 00 04-13 23:59 :00 No 1{tbl} Take 1 tablet by mouth every 6 (six) hours as needed for up to 10 days. Max Daily Amount: 4 tablets [facility] methocarbam oL (ROBAXIN) 500 MG tablet 04-03 00:00: 00 04-13 23:59 :00 No 500mg Q.25D Take 1 tablet (500 mg total) by mouth 4 (four) times daily for 10 days. [facility] HYDROcodone -acetaminop hen (NORCO 10-325) 10-325 mg per tablet 04-03 00:00: 00 04-13 23:59 :00 No 1{tbl} Take 1 tablet by mouth every 6 (six) hours as needed for up to 10 days. Max Daily Amount: 4 tablets [facility] methocarbam oL (ROBAXIN) 500 MG tablet 04-03 00:00: 00 04-13 23:59 :00 No 500mg Q.25D Take 1 tablet (500 mg total) by mouth 4 (four) times daily for 10 days. [facility] HYDROcodone -acetaminop hen (NORCO 10-325) 10-325 mg per tablet 04-03 00:00: 00 04-13 23:59 :00 No 1{tbl} Take 1 tablet by mouth every 6 (six) hours as needed for up to 10 days. Max Daily Amount: 4 tablets [facility] methocarbam oL (ROBAXIN) 500 MG tablet 04-03 00:00: 00 04-13 23:59 :00 No 500mg Q.25D Take 1 tablet (500 mg total) by mouth 4 (four) times daily for 10 days. [facility] aspirin 81 MG EC tablet 04-03 00:00: 00 04-03 00:00 :00 No 81mg QD Take 1 tablet (81 mg total) by mouth daily for 90 days. [facility] DULoxetine (CYMBALTA) 30 MG capsule 04-03 00:00: 00 04-03 00:00 :00 No 30mg QD Take 1 capsule (30 mg total) by mouth daily. [facility] furosemide (LASIX) 20 MG tablet 04-03 00:00: 00 04-03 00:00 :00 No 20mg QD Take 1 tablet (20 mg total) by mouth daily. [facility] lisinopriL (PRINIVIL,Z ESTRIL) 5 MG tablet 04-03 00:00: 00 04-03 00:00 :00 No 5mg QD Take 1 tablet (5 mg total) by mouth daily. [facility] lisinopriL (PRINIVIL,Z ESTRIL) 5 MG tablet 04-03 00:00: 00 04-03 00:00 :00 No 5mg QD Take 1 tablet (5 mg total) by mouth daily. [facility] aspirin 81 MG EC tablet 04-03 00:00: 00 04-03 00:00 :00 No 81mg QD Take 1 tablet (81 mg total) by mouth daily for 90 days. [facility] DULoxetine (CYMBALTA) 30 MG capsule 04-03 00:00: 00 04-03 00:00 :00 No 30mg QD Take 1 capsule (30 mg total) by mouth daily. [facility] furosemide (LASIX) 20 MG tablet 04-03 00:00: 00 04-03 00:00 :00 No 20mg QD Take 1 tablet (20 mg total) by mouth daily. [facility] lisinopriL (PRINIVIL,Z ESTRIL) 5 MG tablet 04-03 00:00: 00 04-03 00:00 :00 No 5mg QD Take 1 tablet (5 mg total) by mouth daily. [facility] aspirin 81 MG EC tablet 04-03 00:00: 00 04-03 00:00 :00 No 81mg QD Take 1 tablet (81 mg total) by mouth daily for 90 days. [facility] DULoxetine (CYMBALTA) 30 MG capsule 04-03 00:00: 00 04-03 00:00 :00 No 30mg QD Take 1 capsule (30 mg total) by mouth daily. [facility] furosemide (LASIX) 20 MG tablet 04-03 00:00: 00 04-03 00:00 :00 No 20mg QD Take 1 tablet (20 mg total) by mouth daily. [facility] lisinopriL (PRINIVIL,Z ESTRIL) 5 MG tablet 04-03 00:00: 00 04-03 00:00 :00 No 5mg QD Take 1 tablet (5 mg total) by mouth daily. [facility] aspirin 81 MG EC tablet 04-03 00:00: 00 04-03 00:00 :00 No 81mg QD Take 1 tablet (81 mg total) by mouth daily for 90 days. [facility] DULoxetine (CYMBALTA) 30 MG capsule 04-03 00:00: 00 04-03 00:00 :00 No 30mg QD Take 1 capsule (30 mg total) by mouth daily. [facility] furosemide (LASIX) 20 MG tablet 04-03 00:00: 00 04-03 00:00 :00 No 20mg QD Take 1 tablet (20 mg total) by mouth daily. [facility] lisinopriL (PRINIVIL,Z ESTRIL) 5 MG tablet 04-03 00:00: 00 04-03 00:00 :00 No 5mg QD Take 1 tablet (5 mg total) by mouth daily. [facility] aspirin 81 MG EC tablet 04-03 00:00: 00 04-03 00:00 :00 No 81mg QD Take 1 tablet (81 mg total) by mouth daily for 90 days. [facility] DULoxetine (CYMBALTA) 30 MG capsule 04-03 00:00: 00 04-03 00:00 :00 No 30mg QD Take 1 capsule (30 mg total) by mouth daily. [facility] furosemide (LASIX) 20 MG tablet 04-03 00:00: 00 04-03 00:00 :00 No 20mg QD Take 1 tablet (20 mg total) by mouth daily. [facility] lisinopriL (PRINIVIL,Z ESTRIL) 5 MG tablet 04-03 00:00: 00 04-03 00:00 :00 No 5mg QD Take 1 tablet (5 mg total) by mouth daily. [facility] aspirin 81 MG EC tablet 04-03 00:00: 00 04-03 00:00 :00 No 81mg QD Take 1 tablet (81 mg total) by mouth daily for 90 days. [facility] DULoxetine (CYMBALTA) 30 MG capsule 04-03 00:00: 00 04-03 00:00 :00 No 30mg QD Take 1 capsule (30 mg total) by mouth daily. [facility] furosemide (LASIX) 20 MG tablet 04-03 00:00: 00 04-03 00:00 :00 No 20mg QD Take 1 tablet (20 mg total) by mouth daily. [facility] lisinopriL (PRINIVIL,Z ESTRIL) 5 MG tablet 04-03 00:00: 00 04-03 00:00 :00 No 5mg QD Take 1 tablet (5 mg total) by mouth daily. [facility] aspirin 81 MG EC tablet 04-03 00:00: 00 04-03 00:00 :00 No 81mg QD Take 1 tablet (81 mg total) by mouth daily for 90 days. [facility] DULoxetine (CYMBALTA) 30 MG capsule 04-03 00:00: 00 04-03 00:00 :00 No 30mg QD Take 1 capsule (30 mg total) by mouth daily. [facility] furosemide (LASIX) 20 MG tablet 04-03 00:00: 00 04-03 00:00 :00 No 20mg QD Take 1 tablet (20 mg total) by mouth daily. [facility] aspirin 81 MG EC tablet 04-03 00:00: 00 04-03 00:00 :00 No 81mg QD Take 1 tablet (81 mg total) by mouth daily for 90 days. [facility] DULoxetine (CYMBALTA) 30 MG capsule 04-03 00:00: 00 04-03 00:00 :00 No 30mg QD Take 1 capsule (30 mg total) by mouth daily. [facility] furosemide (LASIX) 20 MG tablet 04-03 00:00: 00 04-03 00:00 :00 No 20mg QD Take 1 tablet (20 mg total) by mouth daily. [facility] lisinopriL (PRINIVIL,Z ESTRIL) 5 MG tablet 04-03 00:00: 00 04-03 00:00 :00 No 5mg QD Take 1 tablet (5 mg total) by mouth daily. [facility] lisinopriL (PRINIVIL,Z ESTRIL) 5 MG tablet 04-03 00:00: 00 04-03 00:00 :00 No 5mg QD Take 1 tablet (5 mg total) by mouth daily. [facility] aspirin 81 MG EC tablet 04-03 00:00: 00 04-03 00:00 :00 No 81mg QD Take 1 tablet (81 mg total) by mouth daily for 90 days. [facility] DULoxetine (CYMBALTA) 30 MG capsule 04-03 00:00: 00 04-03 00:00 :00 No 30mg QD Take 1 capsule (30 mg total) by mouth daily. [facility] furosemide (LASIX) 20 MG tablet 04-03 00:00: 00 04-03 00:00 :00 No 20mg QD Take 1 tablet (20 mg total) by mouth daily. [facility] lisinopriL (PRINIVIL,Z ESTRIL) 5 MG tablet 04-03 00:00: 00 04-03 00:00 :00 No 5mg QD Take 1 tablet (5 mg total) by mouth daily. [facility] aspirin 81 MG EC tablet 04-03 00:00: 00 04-03 00:00 :00 No 81mg QD Take 1 tablet (81 mg total) by mouth daily for 90 days. [facility] DULoxetine (CYMBALTA) 30 MG capsule 04-03 00:00: 00 04-03 00:00 :00 No 30mg QD Take 1 capsule (30 mg total) by mouth daily. [facility] furosemide (LASIX) 20 MG tablet 04-03 00:00: 00 04-03 00:00 :00 No 20mg QD Take 1 tablet (20 mg total) by mouth daily. [facility] lisinopriL (PRINIVIL,Z ESTRIL) 5 MG tablet 04-03 00:00: 00 04-03 00:00 :00 No 5mg QD Take 1 tablet (5 mg total) by mouth daily. [facility] aspirin 81 MG EC tablet 04-03 00:00: 00 04-03 00:00 :00 No 81mg QD Take 1 tablet (81 mg total) by mouth daily for 90 days. [facility] DULoxetine (CYMBALTA) 30 MG capsule 04-03 00:00: 00 04-03 00:00 :00 No 30mg QD Take 1 capsule (30 mg total) by mouth daily. [facility] furosemide (LASIX) 20 MG tablet 04-03 00:00: 00 04-03 00:00 :00 No 20mg QD Take 1 tablet (20 mg total) by mouth daily. [facility] lisinopriL (PRINIVIL,Z ESTRIL) 5 MG tablet 04-03 00:00: 00 04-03 00:00 :00 No 5mg QD Take 1 tablet (5 mg total) by mouth daily. [facility] aspirin 81 MG EC tablet 04-03 00:00: 00 04-03 00:00 :00 No 81mg QD Take 1 tablet (81 mg total) by mouth daily for 90 days. [facility] DULoxetine (CYMBALTA) 30 MG capsule 04-03 00:00: 00 04-03 00:00 :00 No 30mg QD Take 1 capsule (30 mg total) by mouth daily. [facility] furosemide (LASIX) 20 MG tablet 04-03 00:00: 00 04-03 00:00 :00 No 20mg QD Take 1 tablet (20 mg total) by mouth daily. [facility] lisinopriL (PRINIVIL,Z ESTRIL) 5 MG tablet 04-03 00:00: 00 04-03 00:00 :00 No 5mg QD Take 1 tablet (5 mg total) by mouth daily. [facility] aspirin 81 MG EC tablet 04-03 00:00: 00 04-03 00:00 :00 No 81mg QD Take 1 tablet (81 mg total) by mouth daily for 90 days. [facility] DULoxetine (CYMBALTA) 30 MG capsule 04-03 00:00: 00 04-03 00:00 :00 No 30mg QD Take 1 capsule (30 mg total) by mouth daily. [facility] furosemide (LASIX) 20 MG tablet 04-03 00:00: 00 04-03 00:00 :00 No 20mg QD Take 1 tablet (20 mg total) by mouth daily. [facility] lisinopriL (PRINIVIL,Z ESTRIL) 5 MG tablet 04-03 00:00: 00 04-03 00:00 :00 No 5mg QD Take 1 tablet (5 mg total) by mouth daily. [facility] aspirin 81 MG EC tablet 04-03 00:00: 00 04-03 00:00 :00 No 81mg QD Take 1 tablet (81 mg total) by mouth daily for 90 days. [facility] DULoxetine (CYMBALTA) 30 MG capsule 04-03 00:00: 00 04-03 00:00 :00 No 30mg QD Take 1 capsule (30 mg total) by mouth daily. [facility] aspirin 81 MG EC tablet 04-03 00:00: 00 04-03 00:00 :00 No 81mg QD Take 1 tablet (81 mg total) by mouth daily for 90 days. [facility] DULoxetine (CYMBALTA) 30 MG capsule 04-03 00:00: 00 04-03 00:00 :00 No 30mg QD Take 1 capsule (30 mg total) by mouth daily. [facility] furosemide (LASIX) 20 MG tablet 04-03 00:00: 00 04-03 00:00 :00 No 20mg QD Take 1 tablet (20 mg total) by mouth daily. [facility] furosemide (LASIX) 20 MG tablet 04-03 00:00: 00 04-03 00:00 :00 No 20mg QD Take 1 tablet (20 mg total) by mouth daily. [facility] lisinopriL (PRINIVIL,Z ESTRIL) 5 MG tablet 04-03 00:00: 00 04-03 00:00 :00 No 5mg QD Take 1 tablet (5 mg total) by mouth daily. [facility] lisinopriL (PRINIVIL,Z ESTRIL) 5 MG tablet 04-03 00:00: 00 04-03 00:00 :00 No 5mg QD Take 1 tablet (5 mg total) by mouth daily. [facility] aspirin 81 MG EC tablet 04-03 00:00: 00 04-03 00:00 :00 No 81mg QD Take 1 tablet (81 mg total) by mouth daily for 90 days. [facility] DULoxetine (CYMBALTA) 30 MG capsule 04-03 00:00: 00 04-03 00:00 :00 No 30mg QD Take 1 capsule (30 mg total) by mouth daily. [facility] furosemide (LASIX) 20 MG tablet 04-03 00:00: 00 04-03 00:00 :00 No 20mg QD Take 1 tablet (20 mg total) by mouth daily. [facility] lisinopriL (PRINIVIL,Z ESTRIL) 5 MG tablet 04-03 00:00: 00 04-03 00:00 :00 No 5mg QD Take 1 tablet (5 mg total) by mouth daily. [facility] aspirin 81 MG EC tablet 04-03 00:00: 00 04-03 00:00 :00 No 81mg QD Take 1 tablet (81 mg total) by mouth daily for 90 days. [facility] DULoxetine (CYMBALTA) 30 MG capsule 04-03 00:00: 00 04-03 00:00 :00 No 30mg QD Take 1 capsule (30 mg total) by mouth daily. [facility] furosemide (LASIX) 20 MG tablet 04-03 00:00: 00 04-03 00:00 :00 No 20mg QD Take 1 tablet (20 mg total) by mouth daily. [facility] lisinopriL (PRINIVIL,Z ESTRIL) 5 MG tablet 04-03 00:00: 00 04-03 00:00 :00 No 5mg QD Take 1 tablet (5 mg total) by mouth daily. [facility] aspirin 81 MG EC tablet 04-03 00:00: 00 04-03 00:00 :00 No 81mg QD Take 1 tablet (81 mg total) by mouth daily for 90 days. [facility] DULoxetine (CYMBALTA) 30 MG capsule 04-03 00:00: 00 04-03 00:00 :00 No 30mg QD Take 1 capsule (30 mg total) by mouth daily. [facility] furosemide (LASIX) 20 MG tablet 04-03 00:00: 00 04-03 00:00 :00 No 20mg QD Take 1 tablet (20 mg total) by mouth daily. [facility] lisinopriL (PRINIVIL,Z ESTRIL) 5 MG tablet 04-03 00:00: 00 04-03 00:00 :00 No 5mg QD Take 1 tablet (5 mg total) by mouth daily. [facility] aspirin 81 MG EC tablet 04-03 00:00: 00 04-03 00:00 :00 No 81mg QD Take 1 tablet (81 mg total) by mouth daily for 90 days. [facility] DULoxetine (CYMBALTA) 30 MG capsule 04-03 00:00: 00 04-03 00:00 :00 No 30mg QD Take 1 capsule (30 mg total) by mouth daily. [facility] furosemide (LASIX) 20 MG tablet 04-03 00:00: 00 04-03 00:00 :00 No 20mg QD Take 1 tablet (20 mg total) by mouth daily. [facility] lisinopriL (PRINIVIL,Z ESTRIL) 5 MG tablet 04-03 00:00: 00 04-03 00:00 :00 No 5mg QD Take 1 tablet (5 mg total) by mouth daily. [facility] aspirin 81 MG EC tablet 04-03 00:00: 00 04-03 00:00 :00 No 81mg QD Take 1 tablet (81 mg total) by mouth daily for 90 days. [facility] DULoxetine (CYMBALTA) 30 MG capsule 04-03 00:00: 00 04-03 00:00 :00 No 30mg QD Take 1 capsule (30 mg total) by mouth daily. [facility] furosemide (LASIX) 20 MG tablet 04-03 00:00: 00 04-03 00:00 :00 No 20mg QD Take 1 tablet (20 mg total) by mouth daily. [facility] lisinopriL (PRINIVIL,Z ESTRIL) 5 MG tablet 04-03 00:00: 00 04-03 00:00 :00 No 5mg QD Take 1 tablet (5 mg total) by mouth daily. [facility] aspirin 81 MG EC tablet 04-03 00:00: 00 04-03 00:00 :00 No 81mg QD Take 1 tablet (81 mg total) by mouth daily for 90 days. [facility] aspirin 81 MG EC tablet 04-03 00:00: 00 04-03 00:00 :00 No 81mg QD Take 1 tablet (81 mg total) by mouth daily for 90 days. [facility] DULoxetine (CYMBALTA) 30 MG capsule 04-03 00:00: 00 04-03 00:00 :00 No 30mg QD Take 1 capsule (30 mg total) by mouth daily. [facility] furosemide (LASIX) 20 MG tablet 04-03 00:00: 00 04-03 00:00 :00 No 20mg QD Take 1 tablet (20 mg total) by mouth daily. [facility] lisinopriL (PRINIVIL,Z ESTRIL) 5 MG tablet 04-03 00:00: 00 04-03 00:00 :00 No 5mg QD Take 1 tablet (5 mg total) by mouth daily. [facility] DULoxetine (CYMBALTA) 30 MG capsule 04-03 00:00: 00 04-03 00:00 :00 No 30mg QD Take 1 capsule (30 mg total) by mouth daily. [facility] furosemide (LASIX) 20 MG tablet 04-03 00:00: 00 04-03 00:00 :00 No 20mg QD Take 1 tablet (20 mg total) by mouth daily. [facility] lisinopriL (PRINIVIL,Z ESTRIL) 5 MG tablet 04-03 00:00: 00 04-03 00:00 :00 No 5mg QD Take 1 tablet (5 mg total) by mouth daily. [facility] aspirin 81 MG EC tablet 04-03 00:00: 00 04-03 00:00 :00 No 81mg QD Take 1 tablet (81 mg total) by mouth daily for 90 days. [facility] DULoxetine (CYMBALTA) 30 MG capsule 04-03 00:00: 00 04-03 00:00 :00 No 30mg QD Take 1 capsule (30 mg total) by mouth daily. [facility] furosemide (LASIX) 20 MG tablet 04-03 00:00: 00 04-03 00:00 :00 No 20mg QD Take 1 tablet (20 mg total) by mouth daily. [facility] lisinopriL (PRINIVIL,Z ESTRIL) 5 MG tablet 04-03 00:00: 00 04-03 00:00 :00 No 5mg QD Take 1 tablet (5 mg total) by mouth daily. [facility] aspirin 81 MG EC tablet 04-03 00:00: 00 04-03 00:00 :00 No 81mg QD Take 1 tablet (81 mg total) by mouth daily for 90 days. [facility] DULoxetine (CYMBALTA) 30 MG capsule 04-03 00:00: 00 04-03 00:00 :00 No 30mg QD Take 1 capsule (30 mg total) by mouth daily. [facility] furosemide (LASIX) 20 MG tablet 04-03 00:00: 00 04-03 00:00 :00 No 20mg QD Take 1 tablet (20 mg total) by mouth daily. [facility] lisinopriL (PRINIVIL,Z ESTRIL) 5 MG tablet 04-03 00:00: 00 04-03 00:00 :00 No 5mg QD Take 1 tablet (5 mg total) by mouth daily. [facility] aspirin 81 MG EC tablet 04-03 00:00: 00 04-03 00:00 :00 No 81mg QD Take 1 tablet (81 mg total) by mouth daily for 90 days. [facility] DULoxetine (CYMBALTA) 30 MG capsule 04-03 00:00: 00 04-03 00:00 :00 No 30mg QD Take 1 capsule (30 mg total) by mouth daily. [facility] furosemide (LASIX) 20 MG tablet 04-03 00:00: 00 04-03 00:00 :00 No 20mg QD Take 1 tablet (20 mg total) by mouth daily. [facility] lisinopriL (PRINIVIL,Z ESTRIL) 5 MG tablet 04-03 00:00: 00 04-03 00:00 :00 No 5mg QD Take 1 tablet (5 mg total) by mouth daily. [facility] aspirin 81 MG EC tablet 04-03 00:00: 00 04-03 00:00 :00 No 81mg QD Take 1 tablet (81 mg total) by mouth daily for 90 days. [facility] DULoxetine (CYMBALTA) 30 MG capsule 04-03 00:00: 00 04-03 00:00 :00 No 30mg QD Take 1 capsule (30 mg total) by mouth daily. [facility] aspirin 81 MG EC tablet 04-03 00:00: 00 04-03 00:00 :00 No 81mg QD Take 1 tablet (81 mg total) by mouth daily for 90 days. [facility] DULoxetine (CYMBALTA) 30 MG capsule 04-03 00:00: 00 04-03 00:00 :00 No 30mg QD Take 1 capsule (30 mg total) by mouth daily. [facility] furosemide (LASIX) 20 MG tablet 04-03 00:00: 00 04-03 00:00 :00 No 20mg QD Take 1 tablet (20 mg total) by mouth daily. [facility] furosemide (LASIX) 20 MG tablet 04-03 00:00: 00 04-03 00:00 :00 No 20mg QD Take 1 tablet (20 mg total) by mouth daily. [facility] lisinopriL (PRINIVIL,Z ESTRIL) 5 MG tablet 04-03 00:00: 00 04-03 00:00 :00 No 5mg QD Take 1 tablet (5 mg total) by mouth daily. [facility] lisinopriL (PRINIVIL,Z ESTRIL) 5 MG tablet 04-03 00:00: 00 04-03 00:00 :00 No 5mg QD Take 1 tablet (5 mg total) by mouth daily. [facility] aspirin 81 MG EC tablet 04-03 00:00: 00 04-03 00:00 :00 No 81mg QD Take 1 tablet (81 mg total) by mouth daily for 90 days. [facility] DULoxetine (CYMBALTA) 30 MG capsule 04-03 00:00: 00 04-03 00:00 :00 No 30mg QD Take 1 capsule (30 mg total) by mouth daily. [facility] furosemide (LASIX) 20 MG tablet 04-03 00:00: 00 04-03 00:00 :00 No 20mg QD Take 1 tablet (20 mg total) by mouth daily. [facility] lisinopriL (PRINIVIL,Z ESTRIL) 5 MG tablet 04-03 00:00: 00 04-03 00:00 :00 No 5mg QD Take 1 tablet (5 mg total) by mouth daily. [facility] aspirin 81 MG EC tablet 04-03 00:00: 00 04-03 00:00 :00 No 81mg QD Take 1 tablet (81 mg total) by mouth daily for 90 days. [facility] DULoxetine (CYMBALTA) 30 MG capsule 04-03 00:00: 00 04-03 00:00 :00 No 30mg QD Take 1 capsule (30 mg total) by mouth daily. [facility] furosemide (LASIX) 20 MG tablet 04-03 00:00: 00 04-03 00:00 :00 No 20mg QD Take 1 tablet (20 mg total) by mouth daily. [facility] lisinopriL (PRINIVIL,Z ESTRIL) 5 MG tablet 04-03 00:00: 00 04-03 00:00 :00 No 5mg QD Take 1 tablet (5 mg total) by mouth daily. [facility] aspirin 81 MG EC tablet 04-03 00:00: 00 04-03 00:00 :00 No 81mg QD Take 1 tablet (81 mg total) by mouth daily for 90 days. [facility] DULoxetine (CYMBALTA) 30 MG capsule 04-03 00:00: 00 04-03 00:00 :00 No 30mg QD Take 1 capsule (30 mg total) by mouth daily. [facility] furosemide (LASIX) 20 MG tablet 04-03 00:00: 00 04-03 00:00 :00 No 20mg QD Take 1 tablet (20 mg total) by mouth daily. [facility] lisinopriL (PRINIVIL,Z ESTRIL) 5 MG tablet 04-03 00:00: 00 04-03 00:00 :00 No 5mg QD Take 1 tablet (5 mg total) by mouth daily. [facility] aspirin 81 MG EC tablet 04-03 00:00: 00 04-03 00:00 :00 No 81mg QD Take 1 tablet (81 mg total) by mouth daily for 90 days. [facility] DULoxetine (CYMBALTA) 30 MG capsule 04-03 00:00: 00 04-03 00:00 :00 No 30mg QD Take 1 capsule (30 mg total) by mouth daily. [facility] furosemide (LASIX) 20 MG tablet 04-03 00:00: 00 04-03 00:00 :00 No 20mg QD Take 1 tablet (20 mg total) by mouth daily. [facility] lisinopriL (PRINIVIL,Z ESTRIL) 5 MG tablet 04-03 00:00: 00 04-03 00:00 :00 No 5mg QD Take 1 tablet (5 mg total) by mouth daily. [facility] aspirin 81 MG EC tablet 04-03 00:00: 00 04-03 00:00 :00 No 81mg QD Take 1 tablet (81 mg total) by mouth daily for 90 days. [facility] DULoxetine (CYMBALTA) 30 MG capsule 04-03 00:00: 00 04-03 00:00 :00 No 30mg QD Take 1 capsule (30 mg total) by mouth daily. [facility] furosemide (LASIX) 20 MG tablet 04-03 00:00: 00 04-03 00:00 :00 No 20mg QD Take 1 tablet (20 mg total) by mouth daily. [facility] lisinopriL (PRINIVIL,Z ESTRIL) 5 MG tablet 04-03 00:00: 00 04-03 00:00 :00 No 5mg QD Take 1 tablet (5 mg total) by mouth daily. [facility] aspirin 81 MG EC tablet 04-03 00:00: 00 04-03 00:00 :00 No 81mg QD Take 1 tablet (81 mg total) by mouth daily for 90 days. [facility] DULoxetine (CYMBALTA) 30 MG capsule 04-03 00:00: 00 04-03 00:00 :00 No 30mg QD Take 1 capsule (30 mg total) by mouth daily. [facility] furosemide (LASIX) 20 MG tablet 04-03 00:00: 00 04-03 00:00 :00 No 20mg QD Take 1 tablet (20 mg total) by mouth daily. [facility] lisinopriL (PRINIVIL,Z ESTRIL) 5 MG tablet 04-03 00:00: 00 04-03 00:00 :00 No 5mg QD Take 1 tablet (5 mg total) by mouth daily. [facility] aspirin 81 MG EC tablet 04-03 00:00: 00 04-03 00:00 :00 No 81mg QD Take 1 tablet (81 mg total) by mouth daily for 90 days. [facility] DULoxetine (CYMBALTA) 30 MG capsule 04-03 00:00: 00 04-03 00:00 :00 No 30mg QD Take 1 capsule (30 mg total) by mouth daily. [facility] furosemide (LASIX) 20 MG tablet 04-03 00:00: 00 04-03 00:00 :00 No 20mg QD Take 1 tablet (20 mg total) by mouth daily. [facility] lisinopriL (PRINIVIL,Z ESTRIL) 5 MG tablet 04-03 00:00: 00 04-03 00:00 :00 No 5mg QD Take 1 tablet (5 mg total) by mouth daily. [facility] aspirin 81 MG EC tablet 04-03 00:00: 00 04-03 00:00 :00 No 81mg QD Take 1 tablet (81 mg total) by mouth daily for 90 days. [facility] DULoxetine (CYMBALTA) 30 MG capsule 04-03 00:00: 00 04-03 00:00 :00 No 30mg QD Take 1 capsule (30 mg total) by mouth daily. [facility] furosemide (LASIX) 20 MG tablet 04-03 00:00: 00 04-03 00:00 :00 No 20mg QD Take 1 tablet (20 mg total) by mouth daily. [facility] lisinopriL (PRINIVIL,Z ESTRIL) 5 MG tablet 04-03 00:00: 00 04-03 00:00 :00 No 5mg QD Take 1 tablet (5 mg total) by mouth daily. [facility] aspirin 81 MG EC tablet 04-03 00:00: 00 04-03 00:00 :00 No 81mg QD Take 1 tablet (81 mg total) by mouth daily for 90 days. [facility] DULoxetine (CYMBALTA) 30 MG capsule 04-03 00:00: 00 04-03 00:00 :00 No 30mg QD Take 1 capsule (30 mg total) by mouth daily. [facility] furosemide (LASIX) 20 MG tablet 04-03 00:00: 00 04-03 00:00 :00 No 20mg QD Take 1 tablet (20 mg total) by mouth daily. [facility] lisinopriL (PRINIVIL,Z ESTRIL) 5 MG tablet 04-03 00:00: 00 04-03 00:00 :00 No 5mg QD Take 1 tablet (5 mg total) by mouth daily. [facility] aspirin 81 MG EC tablet 04-03 00:00: 00 04-03 00:00 :00 No 81mg QD Take 1 tablet (81 mg total) by mouth daily for 90 days. [facility] DULoxetine (CYMBALTA) 30 MG capsule 04-03 00:00: 00 04-03 00:00 :00 No 30mg QD Take 1 capsule (30 mg total) by mouth daily. [facility] furosemide (LASIX) 20 MG tablet 04-03 00:00: 00 04-03 00:00 :00 No 20mg QD Take 1 tablet (20 mg total) by mouth daily. [facility] lisinopriL (PRINIVIL,Z ESTRIL) 5 MG tablet 04-03 00:00: 00 04-03 00:00 :00 No 5mg QD Take 1 tablet (5 mg total) by mouth daily. [facility] aspirin 81 MG EC tablet 04-03 00:00: 00 04-03 00:00 :00 No 81mg QD Take 1 tablet (81 mg total) by mouth daily for 90 days. [facility] DULoxetine (CYMBALTA) 30 MG capsule 04-03 00:00: 00 04-03 00:00 :00 No 30mg QD Take 1 capsule (30 mg total) by mouth daily. [facility] furosemide (LASIX) 20 MG tablet 04-03 00:00: 00 04-03 00:00 :00 No 20mg QD Take 1 tablet (20 mg total) by mouth daily. [facility] aspirin 81 MG EC tablet 04-03 00:00: 00 04-03 00:00 :00 No 81mg QD Take 1 tablet (81 mg total) by mouth daily for 90 days. [facility] DULoxetine (CYMBALTA) 30 MG capsule 04-03 00:00: 00 04-03 00:00 :00 No 30mg QD Take 1 capsule (30 mg total) by mouth daily. [facility] furosemide (LASIX) 20 MG tablet 04-03 00:00: 00 04-03 00:00 :00 No 20mg QD Take 1 tablet (20 mg total) by mouth daily. [facility] lisinopriL (PRINIVIL,Z ESTRIL) 5 MG tablet 04-03 00:00: 00 04-03 00:00 :00 No 5mg QD Take 1 tablet (5 mg total) by mouth daily. [facility] gabapentin (NEURONTIN) 300 MG capsule 04-02 00:00: 00 04-03 00:00 :00 No 300mg Q.[id number] 3D Take 1 capsule (300 mg total) by mouth 3 (three) times daily for 90 days. [facility] divalproex (DEPAKOTE) 500 MG EC tablet 04-02 00:00: 00 04-03 00:00 :00 No 500mg Q.5D Take 1 tablet (500 mg total) by mouth 2 (two) times daily for 90 days. [facility] clonazePAM (KlonoPIN) 0.5 MG tablet 04-02 00:00: 00 04-03 00:00 :00 No .25mg Take 0.5 tablets (0.25 mg total) by mouth 2 (two) times daily as needed for Anxiety for up to 30 days. Max Daily Amount: 0.5 mg [facility] gabapentin (NEURONTIN) 300 MG capsule 04-02 00:00: 00 04-03 00:00 :00 No 300mg Q.[id number] 3D Take 1 capsule (300 mg total) by mouth 3 (three) times daily for 90 days. [facility] HYDROcodone -acetaminop hen (NORCO 10-325) 10-325 mg per tablet 04-02 00:00: 00 04-03 00:00 :00 No 1{tbl} Take 1 tablet by mouth every 6 (six) hours as needed for up to 10 days. Max Daily Amount: 4 tablets [facility] HYDROcodone -acetaminop hen (NORCO 10-325) 10-325 mg per tablet 04-02 00:00: 00 04-03 00:00 :00 No 1{tbl} Take 1 tablet by mouth every 6 (six) hours as needed for up to 10 days. Max Daily Amount: 4 tablets [facility] methocarbam oL (ROBAXIN) 500 MG tablet 04-02 00:00: 00 04-03 00:00 :00 No 500mg Q.25D Take 1 tablet (500 mg total) by mouth 4 (four) times daily for 10 days. [facility] methocarbam oL (ROBAXIN) 500 MG tablet 04-02 00:00: 00 04-03 00:00 :00 No 500mg Q.25D Take 1 tablet (500 mg total) by mouth 4 (four) times daily for 10 days. [facility] divalproex (DEPAKOTE) 500 MG EC tablet 04-02 00:00: 00 04-03 00:00 :00 No 500mg Q.5D Take 1 tablet (500 mg total) by mouth 2 (two) times daily for 90 days. [facility] clonazePAM (KlonoPIN) 0.5 MG tablet 04-02 00:00: 00 04-03 00:00 :00 No .25mg Take 0.5 tablets (0.25 mg total) by mouth 2 (two) times daily as needed for Anxiety for up to 30 days. Max Daily Amount: 0.5 mg [facility] gabapentin (NEURONTIN) 300 MG capsule 04-02 00:00: 00 04-03 00:00 :00 No 300mg Q.[id number] 3D Take 1 capsule (300 mg total) by mouth 3 (three) times daily for 90 days. [facility] HYDROcodone -acetaminop hen (NORCO 10-325) 10-325 mg per tablet 04-02 00:00: 00 04-03 00:00 :00 No 1{tbl} Take 1 tablet by mouth every 6 (six) hours as needed for up to 10 days. Max Daily Amount: 4 tablets [facility] methocarbam oL (ROBAXIN) 500 MG tablet 04-02 00:00: 00 04-03 00:00 :00 No 500mg Q.25D Take 1 tablet (500 mg total) by mouth 4 (four) times daily for 10 days. [facility] divalproex (DEPAKOTE) 500 MG EC tablet 04-02 00:00: 00 04-03 00:00 :00 No 500mg Q.5D Take 1 tablet (500 mg total) by mouth 2 (two) times daily for 90 days. [facility] clonazePAM (KlonoPIN) 0.5 MG tablet 04-02 00:00: 00 04-03 00:00 :00 No .25mg Take 0.5 tablets (0.25 mg total) by mouth 2 (two) times daily as needed for Anxiety for up to 30 days. Max Daily Amount: 0.5 mg [facility] gabapentin (NEURONTIN) 300 MG capsule 04-02 00:00: 00 04-03 00:00 :00 No 300mg Q.[id number] 3D Take 1 capsule (300 mg total) by mouth 3 (three) times daily for 90 days. [facility] HYDROcodone -acetaminop hen (NORCO 10-325) 10-325 mg per tablet 04-02 00:00: 00 04-03 00:00 :00 No 1{tbl} Take 1 tablet by mouth every 6 (six) hours as needed for up to 10 days. Max Daily Amount: 4 tablets [facility] methocarbam oL (ROBAXIN) 500 MG tablet 04-02 00:00: 00 04-03 00:00 :00 No 500mg Q.25D Take 1 tablet (500 mg total) by mouth 4 (four) times daily for 10 days. [facility] divalproex (DEPAKOTE) 500 MG EC tablet 04-02 00:00: 00 04-03 00:00 :00 No 500mg Q.5D Take 1 tablet (500 mg total) by mouth 2 (two) times daily for 90 days. [facility] clonazePAM (KlonoPIN) 0.5 MG tablet 04-02 00:00: 00 04-03 00:00 :00 No .25mg Take 0.5 tablets (0.25 mg total) by mouth 2 (two) times daily as needed for Anxiety for up to 30 days. Max Daily Amount: 0.5 mg [facility] gabapentin (NEURONTIN) 300 MG capsule 04-02 00:00: 00 04-03 00:00 :00 No 300mg Q.[id number] 3D Take 1 capsule (300 mg total) by mouth 3 (three) times daily for 90 days. [facility] HYDROcodone -acetaminop hen (NORCO 10-325) 10-325 mg per tablet 04-02 00:00: 00 04-03 00:00 :00 No 1{tbl} Take 1 tablet by mouth every 6 (six) hours as needed for up to 10 days. Max Daily Amount: 4 tablets [facility] methocarbam oL (ROBAXIN) 500 MG tablet 04-02 00:00: 00 04-03 00:00 :00 No 500mg Q.25D Take 1 tablet (500 mg total) by mouth 4 (four) times daily for 10 days. [facility] divalproex (DEPAKOTE) 500 MG EC tablet 04-02 00:00: 00 04-03 00:00 :00 No 500mg Q.5D Take 1 tablet (500 mg total) by mouth 2 (two) times daily for 90 days. [facility] clonazePAM (KlonoPIN) 0.5 MG tablet 04-02 00:00: 00 04-03 00:00 :00 No .25mg Take 0.5 tablets (0.25 mg total) by mouth 2 (two) times daily as needed for Anxiety for up to 30 days. Max Daily Amount: 0.5 mg [facility] gabapentin (NEURONTIN) 300 MG capsule 04-02 00:00: 00 04-03 00:00 :00 No 300mg Q.[id number] 3D Take 1 capsule (300 mg total) by mouth 3 (three) times daily for 90 days. [facility] HYDROcodone -acetaminop hen (NORCO 10-325) 10-325 mg per tablet 04-02 00:00: 00 04-03 00:00 :00 No 1{tbl} Take 1 tablet by mouth every 6 (six) hours as needed for up to 10 days. Max Daily Amount: 4 tablets [facility] methocarbam oL (ROBAXIN) 500 MG tablet 04-02 00:00: 00 04-03 00:00 :00 No 500mg Q.25D Take 1 tablet (500 mg total) by mouth 4 (four) times daily for 10 days. [facility] divalproex (DEPAKOTE) 500 MG EC tablet 04-02 00:00: 00 04-03 00:00 :00 No 500mg Q.5D Take 1 tablet (500 mg total) by mouth 2 (two) times daily for 90 days. [facility] clonazePAM (KlonoPIN) 0.5 MG tablet 04-02 00:00: 00 04-03 00:00 :00 No .25mg Take 0.5 tablets (0.25 mg total) by mouth 2 (two) times daily as needed for Anxiety for up to 30 days. Max Daily Amount: 0.5 mg [facility] gabapentin (NEURONTIN) 300 MG capsule 04-02 00:00: 00 04-03 00:00 :00 No 300mg Q.[id number] 3D Take 1 capsule (300 mg total) by mouth 3 (three) times daily for 90 days. [facility] HYDROcodone -acetaminop hen (NORCO 10-325) 10-325 mg per tablet 04-02 00:00: 00 04-03 00:00 :00 No 1{tbl} Take 1 tablet by mouth every 6 (six) hours as needed for up to 10 days. Max Daily Amount: 4 tablets [facility] methocarbam oL (ROBAXIN) 500 MG tablet 04-02 00:00: 00 04-03 00:00 :00 No 500mg Q.25D Take 1 tablet (500 mg total) by mouth 4 (four) times daily for 10 days. [facility] divalproex (DEPAKOTE) 500 MG EC tablet 04-02 00:00: 00 04-03 00:00 :00 No 500mg Q.5D Take 1 tablet (500 mg total) by mouth 2 (two) times daily for 90 days. [facility] clonazePAM (KlonoPIN) 0.5 MG tablet 04-02 00:00: 00 04-03 00:00 :00 No .25mg Take 0.5 tablets (0.25 mg total) by mouth 2 (two) times daily as needed for Anxiety for up to 30 days. Max Daily Amount: 0.5 mg [facility] gabapentin (NEURONTIN) 300 MG capsule 04-02 00:00: 00 04-03 00:00 :00 No 300mg Q.[id number] 3D Take 1 capsule (300 mg total) by mouth 3 (three) times daily for 90 days. [facility] divalproex (DEPAKOTE) 500 MG EC tablet 04-02 00:00: 00 04-03 00:00 :00 No 500mg Q.5D Take 1 tablet (500 mg total) by mouth 2 (two) times daily for 90 days. [facility] clonazePAM (KlonoPIN) 0.5 MG tablet 04-02 00:00: 00 04-03 00:00 :00 No .25mg Take 0.5 tablets (0.25 mg total) by mouth 2 (two) times daily as needed for Anxiety for up to 30 days. Max Daily Amount: 0.5 mg [facility] gabapentin (NEURONTIN) 300 MG capsule 04-02 00:00: 00 04-03 00:00 :00 No 300mg Q.[id number] 3D Take 1 capsule (300 mg total) by mouth 3 (three) times daily for 90 days. [facility] HYDROcodone -acetaminop hen (NORCO 10-325) 10-325 mg per tablet 04-02 00:00: 00 04-03 00:00 :00 No 1{tbl} Take 1 tablet by mouth every 6 (six) hours as needed for up to 10 days. Max Daily Amount: 4 tablets [facility] HYDROcodone -acetaminop hen (NORCO 10-325) 10-325 mg per tablet 04-02 00:00: 00 04-03 00:00 :00 No 1{tbl} Take 1 tablet by mouth every 6 (six) hours as needed for up to 10 days. Max Daily Amount: 4 tablets [facility] methocarbam oL (ROBAXIN) 500 MG tablet 04-02 00:00: 00 04-03 00:00 :00 No 500mg Q.25D Take 1 tablet (500 mg total) by mouth 4 (four) times daily for 10 days. [facility] methocarbam oL (ROBAXIN) 500 MG tablet 04-02 00:00: 00 04-03 00:00 :00 No 500mg Q.25D Take 1 tablet (500 mg total) by mouth 4 (four) times daily for 10 days. [facility] divalproex (DEPAKOTE) 500 MG EC tablet 04-02 00:00: 00 04-03 00:00 :00 No 500mg Q.5D Take 1 tablet (500 mg total) by mouth 2 (two) times daily for 90 days. [facility] clonazePAM (KlonoPIN) 0.5 MG tablet 04-02 00:00: 00 04-03 00:00 :00 No .25mg Take 0.5 tablets (0.25 mg total) by mouth 2 (two) times daily as needed for Anxiety for up to 30 days. Max Daily Amount: 0.5 mg [facility] gabapentin (NEURONTIN) 300 MG capsule 04-02 00:00: 00 04-03 00:00 :00 No 300mg Q.[id number] 3D Take 1 capsule (300 mg total) by mouth 3 (three) times daily for 90 days. [facility] HYDROcodone -acetaminop hen (NORCO 10-325) 10-325 mg per tablet 04-02 00:00: 00 04-03 00:00 :00 No 1{tbl} Take 1 tablet by mouth every 6 (six) hours as needed for up to 10 days. Max Daily Amount: 4 tablets [facility] methocarbam oL (ROBAXIN) 500 MG tablet 04-02 00:00: 00 04-03 00:00 :00 No 500mg Q.25D Take 1 tablet (500 mg total) by mouth 4 (four) times daily for 10 days. [facility] divalproex (DEPAKOTE) 500 MG EC tablet 04-02 00:00: 00 04-03 00:00 :00 No 500mg Q.5D Take 1 tablet (500 mg total) by mouth 2 (two) times daily for 90 days. [facility] clonazePAM (KlonoPIN) 0.5 MG tablet 04-02 00:00: 00 04-03 00:00 :00 No .25mg Take 0.5 tablets (0.25 mg total) by mouth 2 (two) times daily as needed for Anxiety for up to 30 days. Max Daily Amount: 0.5 mg [facility] gabapentin (NEURONTIN) 300 MG capsule 04-02 00:00: 00 04-03 00:00 :00 No 300mg Q.[id number] 3D Take 1 capsule (300 mg total) by mouth 3 (three) times daily for 90 days. [facility] HYDROcodone -acetaminop hen (NORCO 10-325) 10-325 mg per tablet 04-02 00:00: 00 04-03 00:00 :00 No 1{tbl} Take 1 tablet by mouth every 6 (six) hours as needed for up to 10 days. Max Daily Amount: 4 tablets [facility] methocarbam oL (ROBAXIN) 500 MG tablet 04-02 00:00: 00 04-03 00:00 :00 No 500mg Q.25D Take 1 tablet (500 mg total) by mouth 4 (four) times daily for 10 days. [facility] divalproex (DEPAKOTE) 500 MG EC tablet 04-02 00:00: 00 04-03 00:00 :00 No 500mg Q.5D Take 1 tablet (500 mg total) by mouth 2 (two) times daily for 90 days. [facility] clonazePAM (KlonoPIN) 0.5 MG tablet 04-02 00:00: 00 04-03 00:00 :00 No .25mg Take 0.5 tablets (0.25 mg total) by mouth 2 (two) times daily as needed for Anxiety for up to 30 days. Max Daily Amount: 0.5 mg [facility] gabapentin (NEURONTIN) 300 MG capsule 04-02 00:00: 00 04-03 00:00 :00 No 300mg Q.[id number] 3D Take 1 capsule (300 mg total) by mouth 3 (three) times daily for 90 days. [facility] HYDROcodone -acetaminop hen (NORCO 10-325) 10-325 mg per tablet 04-02 00:00: 00 04-03 00:00 :00 No 1{tbl} Take 1 tablet by mouth every 6 (six) hours as needed for up to 10 days. Max Daily Amount: 4 tablets [facility] methocarbam oL (ROBAXIN) 500 MG tablet 04-02 00:00: 00 04-03 00:00 :00 No 500mg Q.25D Take 1 tablet (500 mg total) by mouth 4 (four) times daily for 10 days. [facility] divalproex (DEPAKOTE) 500 MG EC tablet 04-02 00:00: 00 04-03 00:00 :00 No 500mg Q.5D Take 1 tablet (500 mg total) by mouth 2 (two) times daily for 90 days. [facility] clonazePAM (KlonoPIN) 0.5 MG tablet 04-02 00:00: 00 04-03 00:00 :00 No .25mg Take 0.5 tablets (0.25 mg total) by mouth 2 (two) times daily as needed for Anxiety for up to 30 days. Max Daily Amount: 0.5 mg [facility] gabapentin (NEURONTIN) 300 MG capsule 04-02 00:00: 00 04-03 00:00 :00 No 300mg Q.[id number] 3D Take 1 capsule (300 mg total) by mouth 3 (three) times daily for 90 days. [facility] HYDROcodone -acetaminop hen (NORCO 10-325) 10-325 mg per tablet 04-02 00:00: 00 04-03 00:00 :00 No 1{tbl} Take 1 tablet by mouth every 6 (six) hours as needed for up to 10 days. Max Daily Amount: 4 tablets [facility] methocarbam oL (ROBAXIN) 500 MG tablet 04-02 00:00: 00 04-03 00:00 :00 No 500mg Q.25D Take 1 tablet (500 mg total) by mouth 4 (four) times daily for 10 days. [facility] divalproex (DEPAKOTE) 500 MG EC tablet 04-02 00:00: 00 04-03 00:00 :00 No 500mg Q.5D Take 1 tablet (500 mg total) by mouth 2 (two) times daily for 90 days. [facility] clonazePAM (KlonoPIN) 0.5 MG tablet 04-02 00:00: 00 04-03 00:00 :00 No .25mg Take 0.5 tablets (0.25 mg total) by mouth 2 (two) times daily as needed for Anxiety for up to 30 days. Max Daily Amount: 0.5 mg [facility] gabapentin (NEURONTIN) 300 MG capsule 04-02 00:00: 00 04-03 00:00 :00 No 300mg Q.[id number] 3D Take 1 capsule (300 mg total) by mouth 3 (three) times daily for 90 days. [facility] HYDROcodone -acetaminop hen (NORCO 10-325) 10-325 mg per tablet 04-02 00:00: 00 04-03 00:00 :00 No 1{tbl} Take 1 tablet by mouth every 6 (six) hours as needed for up to 10 days. Max Daily Amount: 4 tablets [facility] methocarbam oL (ROBAXIN) 500 MG tablet 04-02 00:00: 00 04-03 00:00 :00 No 500mg Q.25D Take 1 tablet (500 mg total) by mouth 4 (four) times daily for 10 days. [facility] divalproex (DEPAKOTE) 500 MG EC tablet 04-02 00:00: 00 04-03 00:00 :00 No 500mg Q.5D Take 1 tablet (500 mg total) by mouth 2 (two) times daily for 90 days. [facility] clonazePAM (KlonoPIN) 0.5 MG tablet 04-02 00:00: 00 04-03 00:00 :00 No .25mg Take 0.5 tablets (0.25 mg total) by mouth 2 (two) times daily as needed for Anxiety for up to 30 days. Max Daily Amount: 0.5 mg [facility] divalproex (DEPAKOTE) 500 MG EC tablet 04-02 00:00: 00 04-03 00:00 :00 No 500mg Q.5D Take 1 tablet (500 mg total) by mouth 2 (two) times daily for 90 days. [facility] clonazePAM (KlonoPIN) 0.5 MG tablet 04-02 00:00: 00 04-03 00:00 :00 No .25mg Take 0.5 tablets (0.25 mg total) by mouth 2 (two) times daily as needed for Anxiety for up to 30 days. Max Daily Amount: 0.5 mg [facility] gabapentin (NEURONTIN) 300 MG capsule 04-02 00:00: 00 04-03 00:00 :00 No 300mg Q.[id number] 3D Take 1 capsule (300 mg total) by mouth 3 (three) times daily for 90 days. [facility] HYDROcodone -acetaminop hen (NORCO 10-325) 10-325 mg per tablet 04-02 00:00: 00 04-03 00:00 :00 No 1{tbl} Take 1 tablet by mouth every 6 (six) hours as needed for up to 10 days. Max Daily Amount: 4 tablets [facility] methocarbam oL (ROBAXIN) 500 MG tablet 04-02 00:00: 00 04-03 00:00 :00 No 500mg Q.25D Take 1 tablet (500 mg total) by mouth 4 (four) times daily for 10 days. [facility] gabapentin (NEURONTIN) 300 MG capsule 04-02 00:00: 00 04-03 00:00 :00 No 300mg Q.[id number] 3D Take 1 capsule (300 mg total) by mouth 3 (three) times daily for 90 days. [facility] HYDROcodone -acetaminop hen (NORCO 10-325) 10-325 mg per tablet 04-02 00:00: 00 04-03 00:00 :00 No 1{tbl} Take 1 tablet by mouth every 6 (six) hours as needed for up to 10 days. Max Daily Amount: 4 tablets [facility] methocarbam oL (ROBAXIN) 500 MG tablet 04-02 00:00: 00 04-03 00:00 :00 No 500mg Q.25D Take 1 tablet (500 mg total) by mouth 4 (four) times daily for 10 days. [facility] divalproex (DEPAKOTE) 500 MG EC tablet 04-02 00:00: 00 04-03 00:00 :00 No 500mg Q.5D Take 1 tablet (500 mg total) by mouth 2 (two) times daily for 90 days. [facility] clonazePAM (KlonoPIN) 0.5 MG tablet 04-02 00:00: 00 04-03 00:00 :00 No .25mg Take 0.5 tablets (0.25 mg total) by mouth 2 (two) times daily as needed for Anxiety for up to 30 days. Max Daily Amount: 0.5 mg [facility] gabapentin (NEURONTIN) 300 MG capsule 04-02 00:00: 00 04-03 00:00 :00 No 300mg Q.[id number] 3D Take 1 capsule (300 mg total) by mouth 3 (three) times daily for 90 days. [facility] HYDROcodone -acetaminop hen (NORCO 10-325) 10-325 mg per tablet 04-02 00:00: 00 04-03 00:00 :00 No 1{tbl} Take 1 tablet by mouth every 6 (six) hours as needed for up to 10 days. Max Daily Amount: 4 tablets [facility] methocarbam oL (ROBAXIN) 500 MG tablet 04-02 00:00: 00 04-03 00:00 :00 No 500mg Q.25D Take 1 tablet (500 mg total) by mouth 4 (four) times daily for 10 days. [facility] divalproex (DEPAKOTE) 500 MG EC tablet 04-02 00:00: 00 04-03 00:00 :00 No 500mg Q.5D Take 1 tablet (500 mg total) by mouth 2 (two) times daily for 90 days. [facility] clonazePAM (KlonoPIN) 0.5 MG tablet 04-02 00:00: 00 04-03 00:00 :00 No .25mg Take 0.5 tablets (0.25 mg total) by mouth 2 (two) times daily as needed for Anxiety for up to 30 days. Max Daily Amount: 0.5 mg [facility] gabapentin (NEURONTIN) 300 MG capsule 04-02 00:00: 00 04-03 00:00 :00 No 300mg Q.[id number] 3D Take 1 capsule (300 mg total) by mouth 3 (three) times daily for 90 days. [facility] HYDROcodone -acetaminop hen (NORCO 10-325) 10-325 mg per tablet 04-02 00:00: 00 04-03 00:00 :00 No 1{tbl} Take 1 tablet by mouth every 6 (six) hours as needed for up to 10 days. Max Daily Amount: 4 tablets [facility] methocarbam oL (ROBAXIN) 500 MG tablet 04-02 00:00: 00 04-03 00:00 :00 No 500mg Q.25D Take 1 tablet (500 mg total) by mouth 4 (four) times daily for 10 days. [facility] divalproex (DEPAKOTE) 500 MG EC tablet 04-02 00:00: 00 04-03 00:00 :00 No 500mg Q.5D Take 1 tablet (500 mg total) by mouth 2 (two) times daily for 90 days. [facility] clonazePAM (KlonoPIN) 0.5 MG tablet 04-02 00:00: 00 04-03 00:00 :00 No .25mg Take 0.5 tablets (0.25 mg total) by mouth 2 (two) times daily as needed for Anxiety for up to 30 days. Max Daily Amount: 0.5 mg [facility] gabapentin (NEURONTIN) 300 MG capsule 04-02 00:00: 00 04-03 00:00 :00 No 300mg Q.[id number] 3D Take 1 capsule (300 mg total) by mouth 3 (three) times daily for 90 days. [facility] HYDROcodone -acetaminop hen (NORCO 10-325) 10-325 mg per tablet 04-02 00:00: 00 04-03 00:00 :00 No 1{tbl} Take 1 tablet by mouth every 6 (six) hours as needed for up to 10 days. Max Daily Amount: 4 tablets [facility] methocarbam oL (ROBAXIN) 500 MG tablet 04-02 00:00: 00 04-03 00:00 :00 No 500mg Q.25D Take 1 tablet (500 mg total) by mouth 4 (four) times daily for 10 days. [facility] divalproex (DEPAKOTE) 500 MG EC tablet 04-02 00:00: 00 04-03 00:00 :00 No 500mg Q.5D Take 1 tablet (500 mg total) by mouth 2 (two) times daily for 90 days. [facility] clonazePAM (KlonoPIN) 0.5 MG tablet 04-02 00:00: 00 04-03 00:00 :00 No .25mg Take 0.5 tablets (0.25 mg total) by mouth 2 (two) times daily as needed for Anxiety for up to 30 days. Max Daily Amount: 0.5 mg [facility] gabapentin (NEURONTIN) 300 MG capsule 04-02 00:00: 00 04-03 00:00 :00 No 300mg Q.[id number] 3D Take 1 capsule (300 mg total) by mouth 3 (three) times daily for 90 days. [facility] HYDROcodone -acetaminop hen (NORCO 10-325) 10-325 mg per tablet 04-02 00:00: 00 04-03 00:00 :00 No 1{tbl} Take 1 tablet by mouth every 6 (six) hours as needed for up to 10 days. Max Daily Amount: 4 tablets [facility] methocarbam oL (ROBAXIN) 500 MG tablet 04-02 00:00: 00 04-03 00:00 :00 No 500mg Q.25D Take 1 tablet (500 mg total) by mouth 4 (four) times daily for 10 days. [facility] divalproex (DEPAKOTE) 500 MG EC tablet 04-02 00:00: 00 04-03 00:00 :00 No 500mg Q.5D Take 1 tablet (500 mg total) by mouth 2 (two) times daily for 90 days. [facility] clonazePAM (KlonoPIN) 0.5 MG tablet 04-02 00:00: 00 04-03 00:00 :00 No .25mg Take 0.5 tablets (0.25 mg total) by mouth 2 (two) times daily as needed for Anxiety for up to 30 days. Max Daily Amount: 0.5 mg [facility] gabapentin (NEURONTIN) 300 MG capsule 04-02 00:00: 00 04-03 00:00 :00 No 300mg Q.[id number] 3D Take 1 capsule (300 mg total) by mouth 3 (three) times daily for 90 days. [facility] HYDROcodone -acetaminop hen (NORCO 10-325) 10-325 mg per tablet 04-02 00:00: 00 04-03 00:00 :00 No 1{tbl} Take 1 tablet by mouth every 6 (six) hours as needed for up to 10 days. Max Daily Amount: 4 tablets [facility] methocarbam oL (ROBAXIN) 500 MG tablet 04-02 00:00: 00 04-03 00:00 :00 No 500mg Q.25D Take 1 tablet (500 mg total) by mouth 4 (four) times daily for 10 days. [facility] divalproex (DEPAKOTE) 500 MG EC tablet 04-02 00:00: 00 04-03 00:00 :00 No 500mg Q.5D Take 1 tablet (500 mg total) by mouth 2 (two) times daily for 90 days. [facility] divalproex (DEPAKOTE) 500 MG EC tablet 04-02 00:00: 00 04-03 00:00 :00 No 500mg Q.5D Take 1 tablet (500 mg total) by mouth 2 (two) times daily for 90 days. [facility] clonazePAM (KlonoPIN) 0.5 MG tablet 04-02 00:00: 00 04-03 00:00 :00 No .25mg Take 0.5 tablets (0.25 mg total) by mouth 2 (two) times daily as needed for Anxiety for up to 30 days. Max Daily Amount: 0.5 mg [facility] clonazePAM (KlonoPIN) 0.5 MG tablet 04-02 00:00: 00 04-03 00:00 :00 No .25mg Take 0.5 tablets (0.25 mg total) by mouth 2 (two) times daily as needed for Anxiety for up to 30 days. Max Daily Amount: 0.5 mg [facility] gabapentin (NEURONTIN) 300 MG capsule 04-02 00:00: 00 04-03 00:00 :00 No 300mg Q.[id number] 3D Take 1 capsule (300 mg total) by mouth 3 (three) times daily for 90 days. [facility] HYDROcodone -acetaminop hen (NORCO 10-325) 10-325 mg per tablet 04-02 00:00: 00 04-03 00:00 :00 No 1{tbl} Take 1 tablet by mouth every 6 (six) hours as needed for up to 10 days. Max Daily Amount: 4 tablets [facility] methocarbam oL (ROBAXIN) 500 MG tablet 04-02 00:00: 00 04-03 00:00 :00 No 500mg Q.25D Take 1 tablet (500 mg total) by mouth 4 (four) times daily for 10 days. [facility] gabapentin (NEURONTIN) 300 MG capsule 04-02 00:00: 00 04-03 00:00 :00 No 300mg Q.[id number] 3D Take 1 capsule (300 mg total) by mouth 3 (three) times daily for 90 days. [facility] HYDROcodone -acetaminop hen (NORCO 10-325) 10-325 mg per tablet 04-02 00:00: 00 04-03 00:00 :00 No 1{tbl} Take 1 tablet by mouth every 6 (six) hours as needed for up to 10 days. Max Daily Amount: 4 tablets [facility] methocarbam oL (ROBAXIN) 500 MG tablet 04-02 00:00: 00 04-03 00:00 :00 No 500mg Q.25D Take 1 tablet (500 mg total) by mouth 4 (four) times daily for 10 days. [facility] divalproex (DEPAKOTE) 500 MG EC tablet 04-02 00:00: 00 04-03 00:00 :00 No 500mg Q.5D Take 1 tablet (500 mg total) by mouth 2 (two) times daily for 90 days. [facility] clonazePAM (KlonoPIN) 0.5 MG tablet 04-02 00:00: 00 04-03 00:00 :00 No .25mg Take 0.5 tablets (0.25 mg total) by mouth 2 (two) times daily as needed for Anxiety for up to 30 days. Max Daily Amount: 0.5 mg [facility] gabapentin (NEURONTIN) 300 MG capsule 04-02 00:00: 00 04-03 00:00 :00 No 300mg Q.[id number] 3D Take 1 capsule (300 mg total) by mouth 3 (three) times daily for 90 days. [facility] HYDROcodone -acetaminop hen (NORCO 10-325) 10-325 mg per tablet 04-02 00:00: 00 04-03 00:00 :00 No 1{tbl} Take 1 tablet by mouth every 6 (six) hours as needed for up to 10 days. Max Daily Amount: 4 tablets [facility] methocarbam oL (ROBAXIN) 500 MG tablet 04-02 00:00: 00 04-03 00:00 :00 No 500mg Q.25D Take 1 tablet (500 mg total) by mouth 4 (four) times daily for 10 days. [facility] divalproex (DEPAKOTE) 500 MG EC tablet 04-02 00:00: 00 04-03 00:00 :00 No 500mg Q.5D Take 1 tablet (500 mg total) by mouth 2 (two) times daily for 90 days. [facility] clonazePAM (KlonoPIN) 0.5 MG tablet 04-02 00:00: 00 04-03 00:00 :00 No .25mg Take 0.5 tablets (0.25 mg total) by mouth 2 (two) times daily as needed for Anxiety for up to 30 days. Max Daily Amount: 0.5 mg [facility] gabapentin (NEURONTIN) 300 MG capsule 04-02 00:00: 00 04-03 00:00 :00 No 300mg Q.[id number] 3D Take 1 capsule (300 mg total) by mouth 3 (three) times daily for 90 days. [facility] HYDROcodone -acetaminop hen (NORCO 10-325) 10-325 mg per tablet 04-02 00:00: 00 04-03 00:00 :00 No 1{tbl} Take 1 tablet by mouth every 6 (six) hours as needed for up to 10 days. Max Daily Amount: 4 tablets [facility] methocarbam oL (ROBAXIN) 500 MG tablet 04-02 00:00: 00 04-03 00:00 :00 No 500mg Q.25D Take 1 tablet (500 mg total) by mouth 4 (four) times daily for 10 days. [facility] divalproex (DEPAKOTE) 500 MG EC tablet 04-02 00:00: 00 04-03 00:00 :00 No 500mg Q.5D Take 1 tablet (500 mg total) by mouth 2 (two) times daily for 90 days. [facility] clonazePAM (KlonoPIN) 0.5 MG tablet 04-02 00:00: 00 04-03 00:00 :00 No .25mg Take 0.5 tablets (0.25 mg total) by mouth 2 (two) times daily as needed for Anxiety for up to 30 days. Max Daily Amount: 0.5 mg [facility] gabapentin (NEURONTIN) 300 MG capsule 04-02 00:00: 00 04-03 00:00 :00 No 300mg Q.[id number] 3D Take 1 capsule (300 mg total) by mouth 3 (three) times daily for 90 days. [facility] HYDROcodone -acetaminop hen (NORCO 10-325) 10-325 mg per tablet 04-02 00:00: 00 04-03 00:00 :00 No 1{tbl} Take 1 tablet by mouth every 6 (six) hours as needed for up to 10 days. Max Daily Amount: 4 tablets [facility] methocarbam oL (ROBAXIN) 500 MG tablet 04-02 00:00: 00 04-03 00:00 :00 No 500mg Q.25D Take 1 tablet (500 mg total) by mouth 4 (four) times daily for 10 days. [facility] divalproex (DEPAKOTE) 500 MG EC tablet 04-02 00:00: 00 04-03 00:00 :00 No 500mg Q.5D Take 1 tablet (500 mg total) by mouth 2 (two) times daily for 90 days. [facility] clonazePAM (KlonoPIN) 0.5 MG tablet 04-02 00:00: 00 04-03 00:00 :00 No .25mg Take 0.5 tablets (0.25 mg total) by mouth 2 (two) times daily as needed for Anxiety for up to 30 days. Max Daily Amount: 0.5 mg [facility] divalproex (DEPAKOTE) 500 MG EC tablet 04-02 00:00: 00 04-03 00:00 :00 No 500mg Q.5D Take 1 tablet (500 mg total) by mouth 2 (two) times daily for 90 days. [facility] clonazePAM (KlonoPIN) 0.5 MG tablet 04-02 00:00: 00 04-03 00:00 :00 No .25mg Take 0.5 tablets (0.25 mg total) by mouth 2 (two) times daily as needed for Anxiety for up to 30 days. Max Daily Amount: 0.5 mg [facility] gabapentin (NEURONTIN) 300 MG capsule 04-02 00:00: 00 04-03 00:00 :00 No 300mg Q.[id number] 3D Take 1 capsule (300 mg total) by mouth 3 (three) times daily for 90 days. [facility] HYDROcodone -acetaminop hen (NORCO 10-325) 10-325 mg per tablet 04-02 00:00: 00 04-03 00:00 :00 No 1{tbl} Take 1 tablet by mouth every 6 (six) hours as needed for up to 10 days. Max Daily Amount: 4 tablets [facility] methocarbam oL (ROBAXIN) 500 MG tablet 04-02 00:00: 00 04-03 00:00 :00 No 500mg Q.25D Take 1 tablet (500 mg total) by mouth 4 (four) times daily for 10 days. [facility] gabapentin (NEURONTIN) 300 MG capsule 04-02 00:00: 00 04-03 00:00 :00 No 300mg Q.[id number] 3D Take 1 capsule (300 mg total) by mouth 3 (three) times daily for 90 days. [facility] HYDROcodone -acetaminop hen (NORCO 10-325) 10-325 mg per tablet 04-02 00:00: 00 04-03 00:00 :00 No 1{tbl} Take 1 tablet by mouth every 6 (six) hours as needed for up to 10 days. Max Daily Amount: 4 tablets [facility] methocarbam oL (ROBAXIN) 500 MG tablet 04-02 00:00: 00 04-03 00:00 :00 No 500mg Q.25D Take 1 tablet (500 mg total) by mouth 4 (four) times daily for 10 days. [facility] divalproex (DEPAKOTE) 500 MG EC tablet 04-02 00:00: 00 04-03 00:00 :00 No 500mg Q.5D Take 1 tablet (500 mg total) by mouth 2 (two) times daily for 90 days. [facility] clonazePAM (KlonoPIN) 0.5 MG tablet 04-02 00:00: 00 04-03 00:00 :00 No .25mg Take 0.5 tablets (0.25 mg total) by mouth 2 (two) times daily as needed for Anxiety for up to 30 days. Max Daily Amount: 0.5 mg [facility] gabapentin (NEURONTIN) 300 MG capsule 04-02 00:00: 00 04-03 00:00 :00 No 300mg Q.[id number] 3D Take 1 capsule (300 mg total) by mouth 3 (three) times daily for 90 days. [facility] HYDROcodone -acetaminop hen (NORCO 10-325) 10-325 mg per tablet 04-02 00:00: 00 04-03 00:00 :00 No 1{tbl} Take 1 tablet by mouth every 6 (six) hours as needed for up to 10 days. Max Daily Amount: 4 tablets [facility] methocarbam oL (ROBAXIN) 500 MG tablet 04-02 00:00: 00 04-03 00:00 :00 No 500mg Q.25D Take 1 tablet (500 mg total) by mouth 4 (four) times daily for 10 days. [facility] divalproex (DEPAKOTE) 500 MG EC tablet 04-02 00:00: 00 04-03 00:00 :00 No 500mg Q.5D Take 1 tablet (500 mg total) by mouth 2 (two) times daily for 90 days. [facility] clonazePAM (KlonoPIN) 0.5 MG tablet 04-02 00:00: 00 04-03 00:00 :00 No .25mg Take 0.5 tablets (0.25 mg total) by mouth 2 (two) times daily as needed for Anxiety for up to 30 days. Max Daily Amount: 0.5 mg [facility] gabapentin (NEURONTIN) 300 MG capsule 04-02 00:00: 00 04-03 00:00 :00 No 300mg Q.[id number] 3D Take 1 capsule (300 mg total) by mouth 3 (three) times daily for 90 days. [facility] HYDROcodone -acetaminop hen (NORCO 10-325) 10-325 mg per tablet 04-02 00:00: 00 04-03 00:00 :00 No 1{tbl} Take 1 tablet by mouth every 6 (six) hours as needed for up to 10 days. Max Daily Amount: 4 tablets [facility] methocarbam oL (ROBAXIN) 500 MG tablet 04-02 00:00: 00 04-03 00:00 :00 No 500mg Q.25D Take 1 tablet (500 mg total) by mouth 4 (four) times daily for 10 days. [facility] divalproex (DEPAKOTE) 500 MG EC tablet 04-02 00:00: 00 04-03 00:00 :00 No 500mg Q.5D Take 1 tablet (500 mg total) by mouth 2 (two) times daily for 90 days. [facility] clonazePAM (KlonoPIN) 0.5 MG tablet 04-02 00:00: 00 04-03 00:00 :00 No .25mg Take 0.5 tablets (0.25 mg total) by mouth 2 (two) times daily as needed for Anxiety for up to 30 days. Max Daily Amount: 0.5 mg [facility] gabapentin (NEURONTIN) 300 MG capsule 04-02 00:00: 00 04-03 00:00 :00 No 300mg Q.[id number] 3D Take 1 capsule (300 mg total) by mouth 3 (three) times daily for 90 days. [facility] HYDROcodone -acetaminop hen (NORCO 10-325) 10-325 mg per tablet 04-02 00:00: 00 04-03 00:00 :00 No 1{tbl} Take 1 tablet by mouth every 6 (six) hours as needed for up to 10 days. Max Daily Amount: 4 tablets [facility] methocarbam oL (ROBAXIN) 500 MG tablet 04-02 00:00: 00 04-03 00:00 :00 No 500mg Q.25D Take 1 tablet (500 mg total) by mouth 4 (four) times daily for 10 days. [facility] divalproex (DEPAKOTE) 500 MG EC tablet 04-02 00:00: 00 04-03 00:00 :00 No 500mg Q.5D Take 1 tablet (500 mg total) by mouth 2 (two) times daily for 90 days. [facility] clonazePAM (KlonoPIN) 0.5 MG tablet 04-02 00:00: 00 04-03 00:00 :00 No .25mg Take 0.5 tablets (0.25 mg total) by mouth 2 (two) times daily as needed for Anxiety for up to 30 days. Max Daily Amount: 0.5 mg [facility] gabapentin (NEURONTIN) 300 MG capsule 04-02 00:00: 00 04-03 00:00 :00 No 300mg Q.[id number] 3D Take 1 capsule (300 mg total) by mouth 3 (three) times daily for 90 days. [facility] HYDROcodone -acetaminop hen (NORCO 10-325) 10-325 mg per tablet 04-02 00:00: 00 04-03 00:00 :00 No 1{tbl} Take 1 tablet by mouth every 6 (six) hours as needed for up to 10 days. Max Daily Amount: 4 tablets [facility] methocarbam oL (ROBAXIN) 500 MG tablet 04-02 00:00: 00 04-03 00:00 :00 No 500mg Q.25D Take 1 tablet (500 mg total) by mouth 4 (four) times daily for 10 days. [facility] divalproex (DEPAKOTE) 500 MG EC tablet 04-02 00:00: 00 04-03 00:00 :00 No 500mg Q.5D Take 1 tablet (500 mg total) by mouth 2 (two) times daily for 90 days. [facility] clonazePAM (KlonoPIN) 0.5 MG tablet 04-02 00:00: 00 04-03 00:00 :00 No .25mg Take 0.5 tablets (0.25 mg total) by mouth 2 (two) times daily as needed for Anxiety for up to 30 days. Max Daily Amount: 0.5 mg [facility] gabapentin (NEURONTIN) 300 MG capsule 04-02 00:00: 00 04-03 00:00 :00 No 300mg Q.[id number] 3D Take 1 capsule (300 mg total) by mouth 3 (three) times daily for 90 days. [facility] HYDROcodone -acetaminop hen (NORCO 10-325) 10-325 mg per tablet 04-02 00:00: 00 04-03 00:00 :00 No 1{tbl} Take 1 tablet by mouth every 6 (six) hours as needed for up to 10 days. Max Daily Amount: 4 tablets [facility] methocarbam oL (ROBAXIN) 500 MG tablet 04-02 00:00: 00 04-03 00:00 :00 No 500mg Q.25D Take 1 tablet (500 mg total) by mouth 4 (four) times daily for 10 days. [facility] divalproex (DEPAKOTE) 500 MG EC tablet 04-02 00:00: 00 04-03 00:00 :00 No 500mg Q.5D Take 1 tablet (500 mg total) by mouth 2 (two) times daily for 90 days. [facility] clonazePAM (KlonoPIN) 0.5 MG tablet 04-02 00:00: 00 04-03 00:00 :00 No .25mg Take 0.5 tablets (0.25 mg total) by mouth 2 (two) times daily as needed for Anxiety for up to 30 days. Max Daily Amount: 0.5 mg [facility] gabapentin (NEURONTIN) 300 MG capsule 04-02 00:00: 00 04-03 00:00 :00 No 300mg Q.[id number] 3D Take 1 capsule (300 mg total) by mouth 3 (three) times daily for 90 days. [facility] HYDROcodone -acetaminop hen (NORCO 10-325) 10-325 mg per tablet 04-02 00:00: 00 04-03 00:00 :00 No 1{tbl} Take 1 tablet by mouth every 6 (six) hours as needed for up to 10 days. Max Daily Amount: 4 tablets [facility] methocarbam oL (ROBAXIN) 500 MG tablet 04-02 00:00: 00 04-03 00:00 :00 No 500mg Q.25D Take 1 tablet (500 mg total) by mouth 4 (four) times daily for 10 days. [facility] divalproex (DEPAKOTE) 500 MG EC tablet 04-02 00:00: 00 04-03 00:00 :00 No 500mg Q.5D Take 1 tablet (500 mg total) by mouth 2 (two) times daily for 90 days. [facility] clonazePAM (KlonoPIN) 0.5 MG tablet 04-02 00:00: 00 04-03 00:00 :00 No .25mg Take 0.5 tablets (0.25 mg total) by mouth 2 (two) times daily as needed for Anxiety for up to 30 days. Max Daily Amount: 0.5 mg [facility] gabapentin (NEURONTIN) 300 MG capsule 04-02 00:00: 00 04-03 00:00 :00 No 300mg Q.[id number] 3D Take 1 capsule (300 mg total) by mouth 3 (three) times daily for 90 days. [facility] HYDROcodone -acetaminop hen (NORCO 10-325) 10-325 mg per tablet 04-02 00:00: 00 04-03 00:00 :00 No 1{tbl} Take 1 tablet by mouth every 6 (six) hours as needed for up to 10 days. Max Daily Amount: 4 tablets [facility] methocarbam oL (ROBAXIN) 500 MG tablet 04-02 00:00: 00 04-03 00:00 :00 No 500mg Q.25D Take 1 tablet (500 mg total) by mouth 4 (four) times daily for 10 days. [facility] divalproex (DEPAKOTE) 500 MG EC tablet 04-02 00:00: 00 04-03 00:00 :00 No 500mg Q.5D Take 1 tablet (500 mg total) by mouth 2 (two) times daily for 90 days. [facility] clonazePAM (KlonoPIN) 0.5 MG tablet 04-02 00:00: 00 04-03 00:00 :00 No .25mg Take 0.5 tablets (0.25 mg total) by mouth 2 (two) times daily as needed for Anxiety for up to 30 days. Max Daily Amount: 0.5 mg [facility] gabapentin (NEURONTIN) 300 MG capsule 04-02 00:00: 00 04-03 00:00 :00 No 300mg Q.[id number] 3D Take 1 capsule (300 mg total) by mouth 3 (three) times daily for 90 days. [facility] HYDROcodone -acetaminop hen (NORCO 10-325) 10-325 mg per tablet 04-02 00:00: 00 04-03 00:00 :00 No 1{tbl} Take 1 tablet by mouth every 6 (six) hours as needed for up to 10 days. Max Daily Amount: 4 tablets [facility] methocarbam oL (ROBAXIN) 500 MG tablet 04-02 00:00: 00 04-03 00:00 :00 No 500mg Q.25D Take 1 tablet (500 mg total) by mouth 4 (four) times daily for 10 days. [facility] divalproex (DEPAKOTE) 500 MG EC tablet 04-02 00:00: 00 04-03 00:00 :00 No 500mg Q.5D Take 1 tablet (500 mg total) by mouth 2 (two) times daily for 90 days. [facility] clonazePAM (KlonoPIN) 0.5 MG tablet 04-02 00:00: 00 04-03 00:00 :00 No .25mg Take 0.5 tablets (0.25 mg total) by mouth 2 (two) times daily as needed for Anxiety for up to 30 days. Max Daily Amount: 0.5 mg [facility] gabapentin (NEURONTIN) 300 MG capsule 04-02 00:00: 00 04-03 00:00 :00 No 300mg Q.[id number] 3D Take 1 capsule (300 mg total) by mouth 3 (three) times daily for 90 days. [facility] HYDROcodone -acetaminop hen (NORCO 10-325) 10-325 mg per tablet 04-02 00:00: 00 04-03 00:00 :00 No 1{tbl} Take 1 tablet by mouth every 6 (six) hours as needed for up to 10 days. Max Daily Amount: 4 tablets [facility] methocarbam oL (ROBAXIN) 500 MG tablet 04-02 00:00: 00 04-03 00:00 :00 No 500mg Q.25D Take 1 tablet (500 mg total) by mouth 4 (four) times daily for 10 days. [facility] divalproex (DEPAKOTE) 500 MG EC tablet 04-02 00:00: 00 04-03 00:00 :00 No 500mg Q.5D Take 1 tablet (500 mg total) by mouth 2 (two) times daily for 90 days. [facility] clonazePAM (KlonoPIN) 0.5 MG tablet 04-02 00:00: 00 04-03 00:00 :00 No .25mg Take 0.5 tablets (0.25 mg total) by mouth 2 (two) times daily as needed for Anxiety for up to 30 days. Max Daily Amount: 0.5 mg [facility] gabapentin (NEURONTIN) 300 MG capsule 04-02 00:00: 00 04-03 00:00 :00 No 300mg Q.[id number] 3D Take 1 capsule (300 mg total) by mouth 3 (three) times daily for 90 days. [facility] HYDROcodone -acetaminop hen (NORCO 10-325) 10-325 mg per tablet 04-02 00:00: 00 04-03 00:00 :00 No 1{tbl} Take 1 tablet by mouth every 6 (six) hours as needed for up to 10 days. Max Daily Amount: 4 tablets [facility] methocarbam oL (ROBAXIN) 500 MG tablet 04-02 00:00: 00 04-03 00:00 :00 No 500mg Q.25D Take 1 tablet (500 mg total) by mouth 4 (four) times daily for 10 days. [facility] divalproex (DEPAKOTE) 500 MG EC tablet 04-02 00:00: 00 04-03 00:00 :00 No 500mg Q.5D Take 1 tablet (500 mg total) by mouth 2 (two) times daily for 90 days. [facility] clonazePAM (KlonoPIN) 0.5 MG tablet 04-02 00:00: 00 04-03 00:00 :00 No .25mg Take 0.5 tablets (0.25 mg total) by mouth 2 (two) times daily as needed for Anxiety for up to 30 days. Max Daily Amount: 0.5 mg [facility] divalproex (DEPAKOTE) 500 MG EC tablet 04-02 00:00: 00 04-03 00:00 :00 No 500mg Q.5D Take 1 tablet (500 mg total) by mouth 2 (two) times daily for 90 days. [facility] clonazePAM (KlonoPIN) 0.5 MG tablet 04-02 00:00: 00 04-03 00:00 :00 No .25mg Take 0.5 tablets (0.25 mg total) by mouth 2 (two) times daily as needed for Anxiety for up to 30 days. Max Daily Amount: 0.5 mg [facility] gabapentin (NEURONTIN) 300 MG capsule 04-02 00:00: 00 04-03 00:00 :00 No 300mg Q.[id number] 3D Take 1 capsule (300 mg total) by mouth 3 (three) times daily for 90 days. [facility] HYDROcodone -acetaminop hen (NORCO 10-325) 10-325 mg per tablet 04-02 00:00: 00 04-03 00:00 :00 No 1{tbl} Take 1 tablet by mouth every 6 (six) hours as needed for up to 10 days. Max Daily Amount: 4 tablets [facility] methocarbam oL (ROBAXIN) 500 MG tablet 04-02 00:00: 00 04-03 00:00 :00 No 500mg Q.25D Take 1 tablet (500 mg total) by mouth 4 (four) times daily for 10 days. [facility] Metronidazo le 500 MG oral Tablet 01-17 00:00: 00 Yes Cynthia gonzalez Clonazepam 1 MG oral Tablet 01-16 00:00: 00 Yes 1mg 1 tablet (1 mg total). Cynthia gonzalez Lisinopril 5 MG oral Tablet 01-15 00:00: 00 Yes Cynthia gonzalez Metoprolol Tartrate (LOPRESSOR) 25 MG oral Tablet 01-15 00:00: 00 Yes 25mg 1 tablet (25 mg total). Cynthia gonzalez Divalproex Sodium 500 MG oral Tablet Delayed Response 01-14 00:00: 00 Yes 250mg 250 mg. Cynthia gonzalez lacosamide (VIMPAT) 200 mg in NaCl 0.9% (NS) 50 mL piggyback 12-11 19:45: 00 12-11 19:57 :00 No 200mg 200 mg, IV Piggyback, ONCE, 1 dose, On Arpita 12/11/22 at 1445, Administer over 30 Minutes, 50 mL
Facu lty member approving Restricted medication : Alfonso ALVARADO [facility] ketorolac (TORADOL) injection 15 mg 12-11 18:15: 00 12-11 17:25 :00 No 15mg 15 mg, Slow IV Push, ONCE, 1 dose, On Arpita 12/11/22 at 1315, [facility] iopamidol (ISOVUE 370-500 mL) injection 80 mL 12-11 16:30: 00 12-11 16:27 :00 No [id number] 80mL 80 mL, Intravenou s, ONCE, 1 dose, On Arpita 12/11/22 at 1130, Routine [facility] nitroglycer in (NITROL) 2 % ointment 0.5 Inch 12-11 15:30: 00 12-11 14:31 :00 No .5[in_u s] 0.5 Inch, Transderma l (Apply To Skin), ONCE, 1 dose, On Arpita 12/11/22 at 1030, [facility] aspirin chewable tablet 324 mg 12-11 15:30: 00 12-11 14:30 :00 No 324mg 324 mg, Oral, ONCE, 1 dose, On Arpita 12/11/22 at 1030, Routine [facility] ondansetron (ZOFRAN (PF)) injection 4 mg 12-11 15:30: 00 12-11 14:29 :00 No 4mg 4 mg, Slow IV Push, ONCE, 1 dose, On Thu12/11/22 at 1030, [facility] LORazepam (ATIVAN) injection 1 mg 12-11 15:00: 00 12-11 14:57 :00 No 1mg 1 mg, Slow IV Push, ONCE, 1 dose, On Thu12/11/22 at 1000, STAT [facility] Lacosamide (VIMPAT) 100 mg tablet 12-11 00:00: 00 Yes [id number] 100mg Take 1 tablet by mouth in the morning and 1 tablet in the evening. [facility] Lacosamide (VIMPAT) 100 mg tablet 12-11 00:00: 00 Yes [id number] 100mg Take 1 tablet by mouth in the morning and 1 tablet in the evening. [facility] acetaminoph en-codeine (TYLENOL #3) 300-30 mg tablet 1 tablet 11-18 05:30: 00 11-18 05:30 :00 No 1{tbl} 1 tablet, Oral, ONCE, 1 dose, On Thu11/18/22 at 0030, [facility] methocarbam oL (ROBAXIN) tablet 1,000 mg 11-18 05:30: 00 11-18 05:30 :00 No 1000mg 1,000 mg, Oral, ONCE, 1 dose, On Thu11/18/22 at 0030, [facility] ondansetron (ZOFRAN (PF)) injection 4 mg 11-18 04:45: 00 11-18 03:38 :00 No 4mg 4 mg, Slow IV Push, ONCE, 1 dose, On Thu11/17/22 at 2345, [facility] morpHINE (4 mg/mL) injection 4 mg 11-18 03:45: 00 11-18 03:38 :00 No 4mg 4 mg, Slow IV Push, ONCE, 1 dose, On Thu11/17/22 at 2245, Routine [facility] methocarbam oL (ROBAXIN) injection 1,000 mg 11-18 00:30: 00 11-17 23:47 :00 No 1000mg 1,000 mg, Intravenou s, ONCE, 1 dose, On Thu11/17/22 at 1930, MICHAEL [facility] methocarbam oL 500 mg tablet 11-18 00:00: 00 Yes [id number] 1000mg Take 2 tablets by mouth 4 (four) times daily as needed for Pain (scale 7-10). [facility] methocarbam oL 500 mg tablet 11-18 00:00: 00 Yes [id number] 1000mg Take 2 tablets by mouth 4 (four) times daily as needed for Pain (scale 7-10). [facility] methocarbam oL 500 mg tablet 11-18 00:00: 00 Yes [id number] 1000mg Take 2 tablets by mouth 4 (four) times daily as needed for Pain (scale 7-10). [facility] acetaminoph en-codeine 300-60 mg tablet 11-18 00:00: 00 11-26 04:59 :00 No [id number] 1{tbl} Take 1 tablet by mouth every 6 (six) hours as needed for Pain for up to 7 days. Indication s: acute pain [facility] ketorolac (TORADOL) injection 15 mg 11-18 00:00: 00 11-17 23:08 :00 No 15mg 15 mg, Slow IV Push, ONCE, 1 dose, On Thu11/17/22 at 1900, Routine [facility] morpHINE (4 mg/mL) injection 4 mg 11-17 23:45: 00 11-17 23:49 :00 No 4mg 4 mg, Slow IV Push, ONCE, 1 dose, On Thu11/17/22 at 1845, Routine [facility] ondansetron (ZOFRAN (PF)) injection 4 mg 11-17 23:15: 00 11-17 23:06 :00 No 4mg 4 mg, Slow IV Push, ONCE, 1 dose, On Thu11/17/22 at 1815, MICHAEL [facility] lisinopriL (PRINIVIL,Z ESTRIL) tablet 10 mg 08-02 15:00: 00 Yes 10mg 10 mg, Oral, DAILY, First dose on Thu08/02/22 at 0900, Until Discontinu ed, Routine [facility] predniSONE (DELTASONE) tablet 40 mg 08-02 15:00: 00 08-07 14:59 :00 No 40mg 40 mg, Oral, DAILY, 5 doses, First dose on Thu08/02/22 at 0900, Last dose on Thu08/06/22 at 0900, Routine [facility] morpHINE (2 mg/mL) injection 2 mg 08-02 03:29: 15 Yes 2mg 2 mg, Slow IV Push, Q4HPRN, Starting on Thu08/01/22 at 2129, Until Discontinu ed, Routine, Pain (scale 7-10) [facility] levETIRAcet am (KEPPRA) in NACL (ISO-OS) 1,000 mg/100 mL RTU 08-02 00:00: 00 Yes 1000mg 1,000 mg, IV Piggyback, Q12H, First dose on Thu08/01/22 at 1800, Until Discontinu ed, Administer over 15 Minutes, 100 mL [facility] MULTIVITAMI N ORAL 08-01 23:49: 34 Yes 1{tbl} Take 1 Tab by mouth daily. [facility] omega-3 fatty acids-vitam in E (FISH OIL) 1,000 mg capsule 08-01 23:49: 34 Yes 1g Take 1 g by mouth daily. [facility] loratadine (CLARITIN LIQUI-GEL) 10 mg capsule 08-01 23:49: 34 Yes Take by mouth daily. [facility] ondansetron 4 mg tablet 08-01 23:49: 34 Yes 4mg Take 4 mg by mouth every 8 (eight) hours as needed. [facility] pantoprazol e 40 mg EC tablet 08-01 23:49: 34 Yes 40mg Take 40 mg by mouth daily. [facility] MULTIVITAMI N ORAL 08-01 23:49: 34 Yes 1{tbl} Take 1 Tab by mouth daily. [facility] omega-3 fatty acids-vitam in E (FISH OIL) 1,000 mg capsule 08-01 23:49: 34 Yes 1g Take 1 g by mouth daily. [facility] loratadine (CLARITIN LIQUI-GEL) 10 mg capsule 08-01 23:49: 34 Yes Take by mouth daily. [facility] ondansetron 4 mg tablet 08-01 23:49: 34 Yes 4mg Take 4 mg by mouth every 8 (eight) hours as needed. [facility] pantoprazol e 40 mg EC tablet 08-01 23:49: 34 Yes 40mg Take 40 mg by mouth daily. [facility] MULTIVITAMI N ORAL 08-01 23:49: 34 Yes 1{tbl} Take 1 Tab by mouth daily. [facility] omega-3 fatty acids-vitam in E (FISH OIL) 1,000 mg capsule 08-01 23:49: 34 Yes 1g Take 1 g by mouth daily. [facility] loratadine (CLARITIN LIQUI-GEL) 10 mg capsule 08-01 23:49: 34 Yes Take by mouth daily. [facility] ondansetron 4 mg tablet 08-01 23:49: 34 Yes 4mg Take 4 mg by mouth every 8 (eight) hours as needed. [facility] pantoprazol e 40 mg EC tablet 08-01 23:49: 34 Yes 40mg Take 40 mg by mouth daily. [facility] MULTIVITAMI N ORAL 08-01 23:49: 34 Yes 1{tbl} Take 1 Tab by mouth daily. [facility] omega-3 fatty acids-vitam in E (FISH OIL) 1,000 mg capsule 08-01 23:49: 34 Yes 1g Take 1 g by mouth daily. [facility] loratadine (CLARITIN LIQUI-GEL) 10 mg capsule 08-01 23:49: 34 Yes Take by mouth daily. [facility] ondansetron 4 mg tablet 08-01 23:49: 34 Yes 4mg Take 4 mg by mouth every 8 (eight) hours as needed. [facility] pantoprazol e 40 mg EC tablet 08-01 23:49: 34 Yes 40mg Take 40 mg by mouth daily. [facility] MULTIVITAMI N ORAL 08-01 23:49: 34 Yes 1{tbl} Take 1 Tab by mouth daily. [facility] omega-3 fatty acids-vitam in E (FISH OIL) 1,000 mg capsule 08-01 23:49: 34 Yes 1g Take 1 g by mouth daily. [facility] loratadine (CLARITIN LIQUI-GEL) 10 mg capsule 08-01 23:49: 34 Yes Take by mouth daily. [facility] ondansetron 4 mg tablet 08-01 23:49: 34 Yes 4mg Take 4 mg by mouth every 8 (eight) hours as needed. [facility] pantoprazol e 40 mg EC tablet 08-01 23:49: 34 Yes 40mg Take 40 mg by mouth daily. [facility] MULTIVITAMI N ORAL 08-01 23:49: 34 Yes 1{tbl} Take 1 Tab by mouth daily. [facility] omega-3 fatty acids-vitam in E (FISH OIL) 1,000 mg capsule 08-01 23:49: 34 Yes 1g Take 1 g by mouth daily. [facility] loratadine (CLARITIN LIQUI-GEL) 10 mg capsule 08-01 23:49: 34 Yes Take by mouth daily. [facility] ondansetron 4 mg tablet 08-01 23:49: 34 Yes 4mg Take 4 mg by mouth every 8 (eight) hours as needed. [facility] pantoprazol e 40 mg EC tablet 08-01 23:49: 34 Yes 40mg Take 40 mg by mouth daily. [facility] benzonatate (TESSALON PERLES) capsule 100 mg 08-01 20:00: 00 Yes 100mg 100 mg, Oral, Q8H, First dose on Thu08/01/22 at 1400, Until Discontinu ed, Routine [facility] ipratropium -albuteroL (DUONEB) 0.5 mg-3 mg(2.5 mg base)/3 mL nebulizer solution 3 mL 08-01 18:00: 00 Yes 3mL 3 mL, Inhalation , QID, First dose on Thu08/01/22 at 1200, Until Discontinu ed, Routine [facility] ipratropium -albuteroL (DUONEB) 0.5 mg-3 mg(2.5 mg base)/3 mL nebulizer solution 3 mL 08-01 17:07: 07 Yes 3mL 3 mL, Inhalation , QIDPRN, Starting on Thu08/01/22 at 1107, Until Discontinu ed, MICHAEL, Wheezing, Shortness of Breath [facility] sulfur hexafluorid e microsphr (LUMASON) injection 5 mL 08-01 17:00: 00 08-01 17:00 :00 No [id number] 5mL 5 mL, Intravenou s, ONCE, 1 dose, On Thu08/01/22 at 1100, Routine
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 : KYLEE MONTEZ [facility] pantoprazol e (PROTONIX) EC tablet 40 mg 08-01 15:00: 00 Yes 40mg 40 mg, Oral, DAILY, First dose on Thu08/01/22 at 0900, Until Discontinu ed, Routine [facility] aspirin chewable tablet 81 mg 08-01 15:00: 00 Yes 81mg 81 mg, Oral, DAILY, First dose on Thu08/01/22 at 0900, Until Discontinu ed, Routine [facility] amLODIPine (NORVASC) tablet 10 mg 08-01 15:00: 00 Yes 10mg 10 mg, Oral, DAILY, First dose on Thu08/01/22 at 0900, Until Discontinu ed, Routine [facility] levETIRAcet am (KEPPRA) tablet 500 mg 08-01 14:00: 00 08-01 23:56 :35 No 500mg 500 mg, Oral, BID, First dose on Thu08/01/22 at 0800, Until Discontinu ed, Routine [facility] carvediloL (COREG) tablet 6.25 mg 08-01 14:00: 00 08-01 17:29 :13 No 6.25mg 6.25 mg, Oral, BID MEALS, First dose on Thu08/01/22 at 0800, Until Discontinu ed, Routine [facility] levETIRAcet am (KEPPRA) in NACL (ISO-OS) 1,000 mg/100 mL RTU 08-01 06:45: 00 08-01 06:32 :00 No 1000mg 1,000 mg, IV Piggyback, ONCE, 1 dose, On Thu08/01/22 at 0045, Administer over 15 Minutes, 100 mL [facility] LORazepam (ATIVAN) injection 1 mg 08-01 05:52: 54 Yes 1mg 1 mg, Slow IV Push, Q4HPRN, Starting on Thu07/31/22 at 2352, Until Discontinu ed, Routine, Seizures, Agitation, Anxiety, ETOH / Cocaine Withdrawl [facility] foLIC acid (FOLATE) tablet 1 mg 08-01 05:45: 00 Yes 1mg 1 mg, Oral, DAILY, First dose on Thu07/31/22 at 2345, Until Discontinu ed, Routine [facility] thiamine (VITAMIN B1) tablet 100 mg 08-01 05:45: 00 Yes 100mg 100 mg, Oral, DAILY, First dose on Thu07/31/22 at 2345, Until Discontinu ed, Routine [facility] LORazepam (ATIVAN) injection 0.5 mg 08-01 05:30: 00 08-01 05:29 :00 No .5mg 0.5 mg, Slow IV Push, ONCE, 1 dose, On Thu07/31/22 at 2330, MICHAEL [facility] atorvastati n (LIPITOR) tablet 40 mg 08-01 03:00: 00 Yes 40mg 40 mg, Oral, QHS, First dose on Thu07/31/22 at 2100, Until Discontinu ed, Routine [facility] diphenhydrA MINE (BENADRYL) tablet 25 mg 08-01 00:32: 02 Yes 25mg 25 mg, Oral, Q6HPRN, Starting on Thu07/31/22 at 1832, Until Discontinu ed, Routine, Itching [facility] enoxaparin (LOVENOX) injection 40 mg 07-31 23:00: 00 Yes 40mg 40 mg, Subcutaneo us, DAILY, First dose on Thu07/31/22 at 1700, Until Discontinu ed, Routine [facility] morpHINE (2 mg/mL) injection 2 mg 07-31 23:00: 00 07-31 22:29 :00 No 2mg 2 mg, Slow IV Push, ONCE, 1 dose, On Thu07/31/22 at 1700, Routine [facility] HYDROcodone -acetaminop hen (NORCO) 10-325 mg tablet 1 tablet 07-31 22:01: 36 Yes 1{tbl} 1 tablet, Oral, Q6HPRN, Starting on Thu07/31/22 at 1601, Until Discontinu ed, Routine, Pain (scale 7-10) [facility] HYDROcodone -acetaminop hen (NORCO 5) 5-325 mg tablet 1 tablet 07-31 22:01: 34 08-02 22:00 :34 No 1{tbl} 1 tablet, Oral, Q6HPRN, Starting on Thu07/31/22 at 1601, Until 08/02/22 at 1600, Routine, Pain (scale 4-6) [facility] acetaminoph en (TYLENOL) tablet 650 mg 07-31 22:01: 33 Yes 650mg 650 mg, Oral, Q6HPRN, Starting on Arpita 07/31/22 at 1601, Until Discontinu ed, Routine, Pain (scale 1-3) [facility] ketorolac (TORADOL) injection 15 mg 07-31 21:45: 00 07-31 20:50 :00 No 15mg 15 mg, Slow IV Push, ONCE, 1 dose, On Arpita 07/31/22 at 1545, Routine [facility] ondansetron (ZOFRAN (PF)) injection 4 mg 07-31 21:00: 00 07-31 20:47 :00 No 4mg 4 mg, Slow IV Push, ONCE, 1 dose, On Arpita 07/31/22 at 1500, MICHAEL [facility] furosemide (LASIX) injection 40 mg 07-31 20:15: 00 Yes 40mg 40 mg, Slow IV Push, Q12H, First dose on Arpita 07/31/22 at 1415, Until Discontinu ed, Routine [facility] methylpredn isolone sod succ (SOLU-MEDRO L) injection 125 mg 07-31 19:30: 00 07-31 18:54 :00 No 125mg 125 mg, Slow IV Push, ONCE NOW, 1 dose, On Arpita 07/31/22 at 1330, MICHAEL [facility] ipratropium -albuteroL (DUONEB) 0.5 mg-3 mg(2.5 mg base)/3 mL nebulizer solution 3 mL 07-31 19:30: 00 07-31 18:48 :00 No 3mL 3 mL, Inhalation , ONCE, 1 dose, On Arpita 07/31/22 at 1330, MICHAEL [facility] pantoprazol e 40 mg EC tablet 07-31 17:15: 40 Yes 40mg Take 40 mg by mouth daily. [facility] MULTIVITAMI N ORAL 07-31 15:50: 57 Yes 1{tbl} Take 1 Tab by mouth daily. [facility] loratadine (CLARITIN LIQUI-GEL) 10 mg capsule 07-31 15:50: 57 Yes Take by mouth daily. [facility] ondansetron 4 mg tablet 07-31 15:50: 57 Yes 4mg Take 4 mg by mouth every 8 (eight) hours as needed. [facility] omega-3 fatty acids-vitam in E (FISH OIL) 1,000 mg capsule 07-31 15:21: 27 Yes 1g Take 1 g by mouth daily. [facility] TAKE ONE (1) TABLET(S) BY MOUTH THREE TIMES A DAY NEEDED. 07-28 00:00: 00 No Methylpredn isolone 4 mg tablet 2021-07 00:00: 00 05-12 04:59 :00 No [id number] 4mg Take 1 tablet through enteral tube in the morning for 1 dose. [facility] Methylpredn isolone 4 mg tablet 2021-07 00:00: 00 05-11 04:59 :00 No [id number] 4mg Take 1 tablet through enteral tube every 12 (twelve) hours for 2 doses. [facility] MULTIVITAMI N ORAL 2021-07 14:44: 48 Yes 1{tbl} Take 1 Tab by mouth daily. [facility] omega-3 fatty acids-vitam in E (FISH OIL) 1,000 mg capsule 2021-07 14:44: 48 Yes 1g Take 1 g by mouth daily. [facility] loratadine (CLARITIN LIQUI-GEL) 10 mg capsule 2021-07 14:44: 48 Yes Take by mouth daily. [facility] ondansetron (ZOFRAN) 4 mg tablet 2021-07 14:44: 48 Yes 4mg Take 4 mg by mouth every 8 (eight) hours as needed. [facility] pantoprazol e (PROTONIX) 40 mg EC tablet 2021-07 14:44: 48 Yes 40mg Take 40 mg by mouth daily. [facility] DULoxetine (CYMBALTA) capsule 30 mg 2021-07 14:00: 00 Yes 30mg 30 mg, Oral, DAILY, First dose on Thu05/08/22 at 0900, Until Discontinu ed, Routine [facility] divalproex (DEPAKOTE) EC tablet 1,000 mg 2021-07 13:00: 00 Yes 1000mg 1,000 mg, Oral, BID, First dose (after last modificati on) on Thu05/08/22 at 0800, Until Discontinu ed, Routine [facility] Methylpredn isolone (MEDROL) tablet 4 mg 2021-07 08:50: 10 05-09 08:59 :00 No 4mg 4 mg, Oral, Q8H TAPER, 3 doses, First dose on Thu05/08/22 at 0400, Last dose on Thu05/08/22 at 2000, Routine [facility] acetaminoph en-codeine (TYLENOL #3) 300-30 mg tablet 1 tablet 2021-07 04:07: 01 Yes 1{tbl} 1 tablet, Oral, Q4HPRN, Starting on Thu05/07/22 at 2307, Until Discontinu ed, Routine, Pain (scale 7-10) [facility] morpHINE (2 mg/mL) injection 2 mg 2021-07 03:03: 15 Yes 2mg 2 mg, Slow IV Push, Q4HPRN, Starting on Thu05/07/22 at 2203, Until Discontinu ed, Routine, Pain (scale 7-10) [facility] LORazepam (ATIVAN) tablet 1 mg 2021-07 00:02: 18 Yes 1mg 1 mg, Oral, Q6HPRN, Starting on Thu05/07/22 at 1902, Until Discontinu ed, Routine, Anxiety [facility] cyclobenzap rine 5 mg tablet 2021-07 00:00: 00 Yes [id number] 5mg Take 1 tablet by mouth in the morning and 1 tablet at noon and 1 tablet in the evening. [facility] cyclobenzap rine 5 mg tablet 2021-07 00:00: 00 Yes [id number] 5mg Take 1 tablet by mouth in the morning and 1 tablet at noon and 1 tablet in the evening. [facility] cyclobenzap rine 5 mg tablet 2021-07 00:00: 00 Yes [id number] 5mg Take 1 tablet by mouth in the morning and 1 tablet at noon and 1 tablet in the evening. [facility] cyclobenzap rine 5 mg tablet 2021-07 00:00: 00 Yes [id number] 5mg Take 1 tablet by mouth in the morning and 1 tablet at noon and 1 tablet in the evening. [facility] cyclobenzap rine 5 mg tablet 2021-07 00:00: 00 Yes [id number] 5mg Take 1 tablet by mouth in the morning and 1 tablet at noon and 1 tablet in the evening. [facility] cyclobenzap rine 5 mg tablet 2021-07 00:00: 00 Yes [id number] 5mg Take 1 tablet by mouth in the morning and 1 tablet at noon and 1 tablet in the evening. [facility] cyclobenzap rine 5 mg tablet 2021-07 00:00: 00 Yes [id number] 5mg Take 1 tablet by mouth in the morning and 1 tablet at noon and 1 tablet in the evening. [facility] cyclobenzap rine 5 mg tablet 2021-07 00:00: 00 Yes [id number] 5mg Take 1 tablet by mouth in the morning and 1 tablet at noon and 1 tablet in the evening. [facility] DULoxetine (CYMBALTA) 30 mg capsule 2021-07 00:00: 00 06-08 05:59 :00 No [id number] 60mg Take 2 capsules by mouth in the morning for 30 days. [facility] divalproex (DEPAKOTE) 250 mg EC tablet 2021-07 00:00: 00 06-08 05:59 :00 No [id number] 750mg Take 3 tablets by mouth every 8 (eight) hours for 30 days. [facility] LORazepam 1 mg tablet 2021-07 00:00: 00 05-19 04:59 :00 No [id number] 1mg Take 1 tablet by mouth every 6 (six) hours as needed for Anxiety or Agitation for up to 10 days. [facility] acetaminoph en-codeine 300-30 mg tablet 2021-07 00:00: 00 05-16 04:59 :00 No [id number] 1{tbl} Take 1 tablet by mouth every 4 (four) hours as needed for Pain (scale 7-10) for up to 7 days. Indication s: acute pain [facility] Methylpredn isolone 4 mg tablet 2021-07 00:00: 00 05-10 04:59 :00 No [id number] 4mg Take 1 tablet by mouth every 8 (eight) hours for 3 doses. [facility] divalproex (DEPAKOTE) EC tablet 750 mg 2021-07 01:00: 00 05-08 09:40 :23 No 750mg 750 mg, Oral, BID, First dose on Thu05/06/22 at 2000, Until Discontinu ed, Routine [facility] levETIRAcet am (KEPPRA) tablet 1,500 mg 2021-07 13:00: 00 05-06 18:38 :22 No 1500mg 1,500 mg, Oral, BID, First dose (after last modificati on) on Thu05/06/22 at 0800, Until Discontinu ed, [facility] (KEPPRA) in NACL (ISO-OS) 1,000 mg/100 mL RTU 2021-07 05:00: 00 05-06 05:46 :00 No 1000mg 1,000 mg, IV Piggyback, ONCE, 1 dose, On Thu05/06/22 at 0000, Administer over 15 Minutes, 100 mL [facility] methocarbam oL (ROBAXIN) tablet 500 mg 2021-07 02:15: 00 05-06 23:21 :42 No 500mg 500 mg, Oral, QID, First dose on Thu05/05/22 at 2115, Until Discontinu ed, Routine [facility] LORazepam (ATIVAN) tablet 2 mg 2021-07 01:30: 00 05-06 01:03 :00 No 2mg 2 mg, Oral, ONCE, 1 dose, On Thu05/05/22 at 2030, Routine [facility] levETIRAcet am (KEPPRA) tablet 1,000 mg 2021-07 01:00: 00 05-06 04:48 :06 No 1000mg 1,000 mg, Oral, BID, First dose on Thu05/05/22 at 2000, Until Discontinu ed, Routine [facility] enoxaparin (LOVENOX) injection 40 mg 2021-07 00:15: 00 Yes 40mg 40 mg, Subcutaneo us, Q24H, First dose on Thu05/05/22 at 1915, Until Discontinu ed, Routine [facility] levETIRAcet am (KEPPRA) in NACL (ISO-OS) 1,000 mg/100 mL RTU 2021-07 19:45: 00 05-05 20:05 :00 No 1000mg 1,000 mg, IV Piggyback, ONCE, 1 dose, On Thu05/05/22 at 1445, Administer over 15 Minutes, 100 mL [facility] clonazePAM (KLONOPIN) tablet 0.5 mg 2021-07 19:30: 00 Yes .5mg 0.5 mg, Oral, BID, First dose on Thu05/05/22 at 1430, Until Discontinu ed, Routine [facility] ibuprofen (IBU) tablet 600 mg 2021-07 19:30: 00 Yes 600mg 600 mg, Oral, TID MEALS, First dose on Thu05/05/22 at 1430, Until Discontinu ed, Routine [facility] gabapentin (NEURONTIN) capsule 300 mg 2021-07 19:30: 00 Yes 300mg 300 mg, Oral, TID, First dose on Thu05/05/22 at 1430, Until Discontinu ed, Routine [facility] cyclobenzap rine (FLEXERIL) tablet 5 mg 2021-07 19:30: 00 Yes 5mg 5 mg, Oral, TID, First dose on Thu05/05/22 at 1430, Until Discontinu ed, Routine [facility] acetaminoph en (TYLENOL) tablet 1,000 mg 2021-07 19:30: 00 Yes 1000mg 1,000 mg, Oral, Q8H, First dose on Thu05/05/22 at 1430, Until Discontinu ed, Routine [facility] pantoprazol e (PROTONIX) EC tablet 40 mg 2021-07 14:00: 00 Yes 40mg 40 mg, Oral, DAILY, First dose on Thu05/05/22 at 0900, Until Discontinu ed, Routine [facility] docusate (COLACE) capsule 100 mg 2021-07 14:00: 00 Yes 100mg 100 mg, Oral, DAILY, First dose on Thu05/05/22 at 0900, Until Discontinu ed, Routine [facility] HYDROcodone -acetaminop hen (NORCO) 10-325 mg tablet 1 tablet 2021-07 10:32: 02 05-05 19:18 :52 No 1{tbl} 1 tablet, Oral, Q6HPRN, Starting on Thu05/05/22 at 0532, Until Thu05/05/22 at 1418, Routine, Pain (scale 7-10) [facility] ondansetron (ZOFRAN (PF)) injection 4 mg 2021-07 06:49: 57 Yes 4mg 4 mg, Slow IV Push, Q6HPRN, Starting on Thu05/05/22 at 0149, Until Discontinu ed, Routine, Nausea and Vomiting (N/V) [facility] HYDROcodone -acetaminop hen (NORCO 5) 5-325 mg tablet 1 tablet 2021-07 06:49: 41 05-05 10:32 :14 No 1{tbl} 1 tablet, Oral, Q6HPRN, Starting on Thu05/05/22 at 0149, Until Thu05/05/22 at 0532, Routine, Pain (scale 7-10) [facility] acetaminoph en (TYLENOL) tablet 325 mg 2021-07 06:49: 39 05-05 19:18 :52 No 325mg 325 mg, Oral, Q4HPRN, Starting on Thu05/05/22 at 0149, Until Thu05/05/22 at 1418, Routine, Pain (scale 4-6) [facility] ondansetron (ZOFRAN) tablet 4 mg 2021-07 04:00: 00 05-05 03:26 :00 No 4mg 4 mg, Oral, ONCE, 1 dose, On 05/04/22 at 2300, Routine [facility] morpHINE (2 mg/mL) injection 2 mg 2021-07 04:00: 00 05-05 03:26 :00 No 2mg 2 mg, Slow IV Push, ONCE, 1 dose, On 05/04/22 at 2300, Routine [facility] aspirin 81 mg chewable tablet 04-16 00:00: 00 Yes [id number] 81mg Take 1 tablet by mouth in the morning. [facility] aspirin 81 mg chewable tablet 0 04-16 00:00: 00 Yes [id number] 81mg Take 1 tablet by mouth in the morning. [facility] aspirin 81 mg chewable tablet 0 04-16 00:00: 00 Yes [id number] 81mg Take 1 tablet by mouth in the morning. [facility] aspirin 81 mg chewable tablet 2021-0 04-16 00:00: 00 Yes [id number] 81mg Take 1 tablet by mouth in the morning. [facility] aspirin 81 mg chewable tablet 2021-0 04-16 00:00: 00 Yes [id number] 81mg Take 1 tablet by mouth in the morning. [facility] aspirin 81 mg chewable tablet 2021-0 04-16 00:00: 00 Yes [id number] 81mg Take 1 tablet by mouth in the morning. [facility] aspirin 81 mg chewable tablet 04-16 00:00: 00 Yes [id number] 81mg Take 1 tablet by mouth in the morning. [facility] aspirin 81 mg chewable tablet 04-16 00:00: 00 Yes [id number] 81mg Take 1 tablet by mouth in the morning. [facility] aspirin 81 mg chewable tablet 04-16 00:00: 00 Yes [id number] 81mg Take 1 tablet by mouth in the morning. [facility] MULTIVITAMI N ORAL 04-15 17:39: 14 Yes 1{tbl} Take 1 Tab by mouth daily. [facility] omega-3 fatty acids-vitam in E (FISH OIL) 1,000 mg capsule 04-15 17:39: 14 Yes 1g Take 1 g by mouth daily. [facility] loratadine (CLARITIN LIQUI-GEL) 10 mg capsule 04-15 17:39: 14 Yes Take by mouth daily. [facility] ondansetron (ZOFRAN) 4 mg tablet 04-15 17:39: 14 Yes 4mg Take 4 mg by mouth every 8 (eight) hours as needed. [facility] pantoprazol e (PROTONIX) 40 mg EC tablet 04-15 17:39: 14 Yes 40mg Take 40 mg by mouth daily. [facility] lisinopril- hydrochloro thiazide 20-12.5 mg per tablet 04-15 15:58: 35 04-15 00:00 :00 No 1{tbl} Take 1 tablet by mouth daily. [facility] levetiracet am (KEPPRA ORAL) 04-15 15:58: 35 04-15 00:00 :00 No Take by mouth. [facility] acetaminoph en-codeine (TYLENOL #4) 300-60 mg tablet 1 tablet 04-15 05:39: 23 04-15 14:39 :42 No 1{tbl} 1 tablet, Oral, Q6HPRN, Starting on Thu04/15/22 at 0039, Until Thu04/15/22 at 0939, Routine, Pain (scale 4-6), Pain (scale 1-3) [facility] LORazepam (ATIVAN) tablet 2 mg 04-15 03:30: 00 04-15 10:27 :00 No 2mg 2 mg, Oral, ONCE, 1 dose, On Thu04/14/22 at 2230, Routine [facility] levETIRAcet am (KEPPRA) tablet 1,000 mg 04-15 02:45: 00 Yes 1000mg 1,000 mg, Oral, BID, First dose (after last modificati on) on Thu04/14/22 at 2145, Until Discontinu ed, Routine [facility] ketorolac (TORADOL) injection 15 mg 04-15 02:13: 00 04-15 02:22 :00 No 15mg 15 mg, Slow IV Push, ONCE, 1 dose, On Thu04/14/22 at 2115, Routine [facility] atorvastati n 40 mg tablet 04-15 00:00: 00 Yes [id number] 40mg Take 1 tablet by mouth at bedtime. [facility] levETIRAcet am 1,000 mg tablet 04-15 00:00: 00 Yes [id number] 1000mg Take 1 tablet by mouth in the morning and 1 tablet in the evening. [facility] atorvastati n 40 mg tablet 04-15 00:00: 00 Yes [id number] 40mg Take 1 tablet by mouth at bedtime. [facility] atorvastati n 40 mg tablet 04-15 00:00: 00 Yes [id number] 40mg Take 1 tablet by mouth at bedtime. [facility] atorvastati n 40 mg tablet 04-15 00:00: 00 Yes [id number] 40mg Take 1 tablet by mouth at bedtime. [facility] atorvastati n 40 mg tablet 04-15 00:00: 00 Yes [id number] 40mg Take 1 tablet by mouth at bedtime. [facility] atorvastati n 40 mg tablet 04-15 00:00: 00 Yes [id number] 40mg Take 1 tablet by mouth at bedtime. [facility] atorvastati n 40 mg tablet 04-15 00:00: 00 Yes [id number] 40mg Take 1 tablet by mouth at bedtime. [facility] atorvastati n 40 mg tablet 04-15 00:00: 00 Yes [id number] 40mg Take 1 tablet by mouth at bedtime. [facility] atorvastati n 40 mg tablet 04-15 00:00: 00 Yes [id number] 40mg Take 1 tablet by mouth at bedtime. [facility] levETIRAcet am 1,000 mg tablet 04-15 00:00: 00 05-08 00:00 :00 No [id number] 1000mg Take 1 tablet by mouth in the morning and 1 tablet in the evening. [facility] lidocaine 5 % (700 mg/patch) patch 04-15 00:00: 00 04-23 04:59 :00 No [id number] 1{patch } Apply 1 Patch to area(s) in the morning for 7 days. [facility] HYDROcodone -acetaminop hen 5-325 mg tablet 04-15 00:00: 00 04-21 04:59 :00 No [id number] 1{tbl} Take 1 tablet by mouth every 6 (six) hours as needed for Pain (scale 7-10) for up to 5 days. Indication s: acute pain [facility] lidocaine (LIDODERM) 5 % (700 mg/patch) patch 1 Patch 04-14 21:45: 29 Yes 1{patch } 1 Patch, Topical, Administer over 12 Hours, [id number], Starting on Thu04/14/22 at 1645, Until Discontinu ed, Routine, Localized pain [facility] aspirin chewable tablet 81 mg 04-14 21:30: 00 Yes 81mg 81 mg, Oral, DAILY, First dose on Thu04/14/22 at 1630, Until Discontinu ed, Routine [facility] acetaminoph en (TYLENOL) tablet 650 mg 04-14 21:29: 25 Yes 650mg 650 mg, Oral, Q6HPRN, Starting on Thu04/14/22 at 1629, Until Discontinu ed, Routine, Pain (scale 1-3), Temp > 38.5 C, Temp > 37.5 C [facility] HYDROcodone -acetaminop hen (NORCO) 10-325 mg tablet 1 tablet 04-14 21:29: 02 04-15 05:39 :41 No 1{tbl} 1 tablet, Oral, Q6HPRN, Starting on Thu04/14/22 at 1629, Until Thu04/15/22 at 0039, Routine, Pain (scale 7-10), Pain (scale 4-6) [facility] sulfur hexafluorid e microsphr (LUMASON) injection 5 mL 04-14 16:45: 00 04-14 16:45 :00 No [id number] 5mL 5 mL, Intravenou s, ONCE, 1 dose, On Thu04/14/22 at 1145, Routine
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 : [employer] [facility] clopidogreL (PLAVIX) 75 mg tablet 75 mg 04-14 14:00: 00 Yes 75mg 75 mg, Oral, DAILY, First dose on Thu04/14/22 at 0900, Until Discontinu ed, Routine [facility] pantoprazol e (PROTONIX) EC tablet 40 mg 04-14 14:00: 00 Yes 40mg 40 mg, Oral, DAILY, First dose on Thu04/14/22 at 0900, Until Discontinu ed, Routine [facility] atorvastati n (LIPITOR) tablet 40 mg 04-14 02:00: 00 Yes 40mg 40 mg, Oral, QHS, First dose on Thu04/13/22 at 2100, Until Discontinu ed, Routine [facility] LORazepam (ATIVAN) tablet 1 mg 04-14 01:30: 00 04-14 01:45 :00 No 1mg 1 mg, Oral, ONCE, 1 dose, On Thu04/13/22 at 2030, Routine [facility] methocarbam oL (ROBAXIN) tablet 500 mg 04-14 01:00: 00 Yes 500mg 500 mg, Oral, QID, First dose on Thu04/13/22 at 2000, Until Discontinu ed, Routine [facility] heparin (porcine) injection 5,000 Units 04-14 01:00: 00 Yes 5000U 5,000 Units, Subcutaneo us, Q12H, First dose on Thu04/13/22 at 2000, Until Discontinu ed, Routine [facility] acetaminoph en (TYLENOL) tablet 650 mg 04-14 00:23: 25 04-14 21:29 :42 No 650mg 650 mg, Oral, Q6HPRN, Starting on Thu04/13/22 at 1923, Until Thu04/14/22 at 1629, Routine, Pain (scale 1-3), Pain (scale 4-6), Temp > 38.5 C, Temp > 37.5 C [facility] lidocaine (LIDODERM) 5 % (700 mg/patch) patch 1 Patch 04-14 00:22: 00 04-14 13:51 :00 No 1{patch } 1 Patch, Topical, Administer over 12 Hours, ONCE, 1 dose, On Thu04/13/22 at 1930, Routine [facility] FENTanyl PF (SUBLIMAZE (PF)) injection 50 mcg 04-13 20:30: 00 04-13 19:22 :00 No 50ug 50 mcg, Slow IV Push, ONCE, 1 dose, On Thu04/13/22 at 1530, Routine [facility] aspirin chewable tablet 650 mg 04-13 20:15: 00 04-13 20:15 :00 No 650mg 650 mg, Oral, ONCE, 1 dose, On Thu04/13/22 at 1515, Routine [facility] clopidogreL (PLAVIX) 300 mg tablet 300 mg 04-13 20:00: 00 04-13 19:15 :00 No 300mg 300 mg, Oral, ONCE, 1 dose, On 04/13/22 at 1500, Routine [facility] ondansetron (ZOFRAN (PF)) injection 4 mg 04-13 19:30: 00 04-13 19:22 :00 No 4mg 4 mg, Slow IV Push, ONCE, 1 dose, On 04/13/22 at 1430, MICHAEL [facility] iopamidol (ISOVUE 370-500 mL) injection 100 mL 04-13 18:31: 00 04-13 18:32 :00 No [id number] 100mL 100 mL, Intravenou s, ONCE, 1 dose, On 04/13/22 at 1345, Routine [facility] NaCl 0.9% (NS) injection 5 mL 04-13 18:14: 11 Yes 5mL 5 mL, Slow IV Push, PRN - SEE INSTRUCTIO NS, Starting on 04/13/22 at 1314, Until Discontinu ed, 10 mL [facility] aspirin chewable tablet 324 mg 11-24 14:00: 00 Yes 324mg 324 mg, Oral, DAILY, First dose on 11/24/21 at 0900, Until Discontinu ed, Routine [facility] metoclopram iker HCl (REGLAN) injection 10 mg 11-23 22:30: 00 11-23 21:24 :00 No 10mg 10 mg, Slow IV Push, ONCE, 1 dose, On 11/23/21 at 1730, MICHAEL [facility] acetaminoph en (TYLENOL) tablet 1,000 mg 11-23 22:15: 00 11-23 21:09 :00 No 1000mg 1,000 mg, Oral, ONCE, 1 dose, On 11/23/21 at 1715, MICHAEL [facility] ondansetron (ZOFRAN (PF)) injection 4 mg 11-23 21:45: 00 11-23 20:30 :00 No 4mg 4 mg, Slow IV Push, ONCE, 1 dose, [facility] 0.9% (NS) bolus infusion 1,000 mL 11-23 21:30: 00 11-23 21:56 :00 No 1000mL at 999 mL/hr, 1,000 mL, IV Infusion, ONCE, 1 dose, [facility] 11/23/21 at 1630, [facility] (ATIVAN) injection 4 mg 11-23 21:30: 00 11-23 20:23 :00 No 4mg 4 mg, Slow IV Push, ONCE, 1 dose, On 11/23/21 at 1630, STAT [facility] levETIRAcet am (KEPPRA) in NACL (ISO-OS) 1,500 mg/100 mL RTU 11-23 21:30: 00 11-23 20:47 :00 No 1500mg 1,500 mg, IV Piggyback, ONCE, 1 dose, On 11/23/21 at 1630, Administer over 15 Minutes, 100 mL [facility] Dose Unknown 0 4-08 00:00: 00 No Dose Unknown 0 -08 00:00: 00 No Prozac 20 mg capsule 0 3-21 00:00: 00 No 1mg Prozac 20 mg capsule 0 3-21 00:00: 00 No 1mg Dose Unknown 2021-0 3-16 00:00: 00 No Dose Unknown 2021-0 3-16 00:00: 00 No Dose Unknown 2021-0 3-16 00:00: 00 No Dose Unknown 2-0 3-16 00:00: 00 No Dose Unknown 2021-0 3-15 00:00: 00 No Dose Unknown 2021-0 3-15 00:00: 00 No Dose Unknown 2022-0 3-15 00:00: 00 No Dose Unknown 2-0 3-15 00:00: 00 No Dose Unknown 2021-0 3-15 00:00: 00 No Dose Unknown 2022-0 [...] 00 No 1mg Prozac 20 mg capsule 3- 00:00: 00 No 1mg hydroxyzine HCl 50 mg tablet 3 00:00: 00 No 1mg Prozac 20 mg capsule 3 00:00: 00 No 1mg Dose Unknown 3 00:00: 00 No Dose Unknown 3- 00:00: 00 No Dose Unknown 3- 00:00: 00 No Dose Unknown 3 00:00: 00 No Dose Unknown 09-22 00:00: 00 No Dose Unknown 09-22 00:00: 00 No Dose Unknown 09-22 00:00: 00 No Dose Unknown 09-22 00:00: 00 No Dose Unknown 09-22 00:00: 00 No Dose Unknown 09-22 00:00: 00 No Wellbutrin XL 150 mg [...] y
Durat ion of Therapy: 7 days [facility] levoFLOXaci n (LEVAQUIN) tablet 500 mg 03-17 04:00: 00 03-17 04:22 :00 No 500mg 500 mg, Oral, ONCE, 1 dose, 03/16/21 at 2315, MICHAEL
Re ason for Anti-Infec tive: Documented Infection< br>Documen sherice Infection Site: Respirator y
Durat ion of Therapy: 7 days [facility] morpHINE injection 4 mg 03-17 01:58: 00 03-17 02:13 :00 No 4mg 4 mg, Slow IV Push, ONCE, 1 dose, 03/16/21 at 2100, STAT [facility] ondansetron (ZOFRAN (PF)) injection 4 mg 03-17 01:58: 00 03-17 02:12 :00 No 4mg 4 mg, Slow IV Push, ONCE, 1 dose, [facility]16[facility]21 [facility] 2100[facility] 03-17 01:58: 00 03-17 02:13 :00 No 4mg 4 mg, Slow IV Push, ONCE, 1 dose, 03/16/21 at 2100, STAT [facility] ondansetron (ZOFRAN (PF)) injection 4 mg 03-17 01:58: 00 03-17 02:12 :00 No 4mg 4 mg, Slow IV Push, ONCE, 1 dose, 03/16/21 at 2100, MICHAEL [facility] ipratropium -albuteroL (DUONEB) 0.5 mg-3 mg(2.5 mg base)/3 mL nebulizer solution 3 mL 03-17 01:57: 00 03-17 02:15 :00 No 3mL 3 mL, Inhalation , ONCE, 1 dose, 03/16/21 at 2100, MICHAEL [facility] NaCl 0.9% (NS) IV infusion 1,000 mL 03-17 01:57: 00 03-17 03:07 :00 No 1000mL at 999 mL/hr, Intravenou s, ONCE, 1 dose, 03/16/21 at 2100, [facility] methylpredn isolone sod succ (SOLU-MEDRO L) injection 125 mg 03-17 01:57: 00 03-17 02:11 :00 No 125mg 125 mg, Slow IV Push, ONCE, 1 dose, 03/16/21 at 2100, [facility] ipratropium -albuteroL (DUONEB) 0.5 mg-3 mg(2.5 mg base)/3 mL nebulizer solution 3 mL 03-17 01:57: 00 03-17 02:15 :00 No 3mL 3 mL, Inhalation , ONCE, 1 dose, 03/16/21 at 2100, [facility] ipratropium -albuteroL (DUONEB) 0.5 mg-3 mg(2.5 mg base)/3 mL nebulizer solution 3 mL 03-17 01:57: 00 03-17 02:15 :00 No 3mL 3 mL, Inhalation , ONCE, 1 dose, 03/16/21 at 2100, [facility] NaCl 0.9% (NS) IV infusion 1,000 mL 03-17 01:57: 00 03-17 03:07 :00 No 1000mL at 999 mL/hr, Intravenou s, ONCE, 1 dose, 03/16/21 at 2100, [facility] methylpredn isolone sod succ (SOLU-MEDRO L) injection 125 mg 03-17 01:57: 00 03-17 02:11 :00 No 125mg 125 mg, Slow IV Push, ONCE, 1 dose, 03/16/21 at 2100, [facility] ipratropium -albuteroL (DUONEB) 0.5 mg-3 mg(2.5 mg base)/3 mL nebulizer solution 3 mL 03-17 01:57: 00 03-17 02:15 :00 No 3mL 3 mL, Inhalation , ONCE, 1 dose, 03/16/21 at 2100, MICHAEL [facility] levoFLOXaci n 500 mg tablet 03-17 00:00: 00 03-24 04:59 :00 No [id number] 500mg Take 1 tablet by mouth daily for 6 days. [facility] levoFLOXaci n 500 mg tablet 03-17 00:00: 00 03-24 04:59 :00 No [id number] 500mg Take 1 tablet by mouth daily for 6 days. [facility] levoFLOXaci n 500 mg tablet 03-17 00:00: 00 03-24 04:59 :00 No [id number] 500mg Take 1 tablet by mouth daily for 6 days. [facility] levoFLOXaci n 500 mg tablet 03-17 00:00: 00 03-24 04:59 :00 No [id number] 500mg Take 1 tablet by mouth daily for 6 days. [facility] predniSONE 10 mg tablet 03-17 00:00: 00 03-22 04:59 :00 No [id number] 30mg Take 3 tablets by mouth daily for 4 days. [facility] predniSONE 10 mg tablet 03-17 00:00: 00 03-22 04:59 :00 No [id number] 30mg Take 3 tablets by mouth daily for 4 days. [facility] [facility]E 10 mg tablet 03-17 00:00: 00 03-22 04:59 :00 No [id number] 30mg Take 3 tablets by mouth daily for 4 days. [facility] predniSONE 10 mg tablet 03-17 00:00: 00 03-22 04:59 :00 No [id number] 30mg Take 3 tablets by mouth daily for 4 days. [facility] albuterol (VENTOLIN) inhaler 4 Puff 03-15 01:45: 00 03-15 00:44 :00 No [id number] 4{puff} 4 Puff, Inhalation , ONCE, 1 dose, [facility] 03/14/21 at 2044, Routine [facility] dexamethaso ne (DECADRON) injection 10 mg 03-15 01:45: 00 03-15 00:45 :00 No [id number] 10mg 10 mg, Intramuscu lar, ONCE, 1 dose, [facility] 03/14/21 at 2044, Routine [facility] albuterol 2.5 mg /3 mL (0.083 %) nebulizer solution 03-15 00:00: 00 Yes [id number] 2.5mg Inhale 3 mL every 4 (four) hours as needed for Wheezing or Shortness of Breath. [facility] albuterol 2.5 mg /3 mL (0.083 %) nebulizer solution 03-15 00:00: 00 Yes [id number] 2.5mg Inhale 3 mL every 4 (four) hours as needed for Wheezing or Shortness of Breath. [facility] albuterol 2.5 mg /3 mL (0.083 %) nebulizer solution 03-15 00:00: 00 Yes [id number] 2.5mg Inhale 3 mL every 4 (four) hours as needed for Wheezing or Shortness of Breath. [facility] albuterol 2.5 mg /3 mL (0.083 %) nebulizer solution 03-15 00:00: 00 Yes [id number] 2.5mg Inhale 3 mL every 4 (four) hours as needed for Wheezing or Shortness of Breath. [facility] albuterol 2.5 mg /3 mL (0.083 %) nebulizer solution 03-15 00:00: 00 Yes [id number] 2.5mg Inhale 3 mL every 4 (four) hours as needed for Wheezing or Shortness of Breath. [facility] albuterol 2.5 mg /3 mL (0.083 %) nebulizer solution 03-15 00:00: 00 Yes [id number] 2.5mg Inhale 3 mL every 4 (four) hours as needed for Wheezing or Shortness of Breath. [facility] albuterol 2.5 mg /3 mL (0.083 %) nebulizer solution 03-15 00:00: 00 Yes [id number] 2.5mg Inhale 3 mL every 4 (four) hours as needed for Wheezing or Shortness of Breath. [facility] albuterol 2.5 mg /3 mL (0.083 %) nebulizer solution 03-15 00:00: 00 Yes [id number] 2.5mg Inhale 3 mL every 4 (four) hours as needed for Wheezing or Shortness of Breath. [facility] albuterol 2.5 mg /3 mL (0.083 %) nebulizer solution 03-15 00:00: 00 Yes [id number] 2.5mg Inhale 3 mL every 4 (four) hours as needed for Wheezing or Shortness of Breath. [facility] albuterol 2.5 mg /3 mL (0.083 %) nebulizer solution 03-15 00:00: 00 Yes [id number] 2.5mg Inhale 3 mL every 4 (four) hours as needed for Wheezing or Shortness of Breath. [facility] albuterol 2.5 mg /3 mL (0.083 %) nebulizer solution 03-15 00:00: 00 Yes [id number] 2.5mg Inhale 3 mL every 4 (four) hours as needed for Wheezing or Shortness of Breath. [facility] albuterol 2.5 mg /3 mL (0.083 %) nebulizer solution 03-15 00:00: 00 Yes [id number] 2.5mg Inhale 3 mL every 4 (four) hours as needed for Wheezing or Shortness of Breath. [facility] albuterol 2.5 mg /3 mL (0.083 %) nebulizer solution 03-15 00:00: 00 Yes [id number] 2.5mg Inhale 3 mL every 4 (four) hours as needed for Wheezing or Shortness of Breath. [facility] albuterol 2.5 mg /3 mL (0.083 %) nebulizer solution 03-15 00:00: 00 Yes [id number] 2.5mg Inhale 3 mL every 4 (four) hours as needed for Wheezing or Shortness of Breath. [facility] albuterol 2.5 mg /3 mL (0.083 %) nebulizer solution 03-15 00:00: 00 Yes [id number] 2.5mg Inhale 3 mL every 4 (four) hours as needed for Wheezing or Shortness of Breath. [facility] albuterol 2.5 mg /3 mL (0.083 %) nebulizer solution 03-15 00:00: 00 Yes [id number] 2.5mg Inhale 3 mL every 4 (four) hours as needed for Wheezing or Shortness of Breath. [facility] albuterol 2.5 mg /3 mL (0.083 %) nebulizer solution 03-15 00:00: 00 Yes [id number] 2.5mg Inhale 3 mL every 4 (four) hours as needed for Wheezing or Shortness of Breath. [facility] albuterol 2.5 mg /3 mL (0.083 %) nebulizer solution 03-15 00:00: 00 Yes [id number] 2.5mg Inhale 3 mL every 4 (four) hours as needed for Wheezing or Shortness of Breath. [facility] albuterol 2.5 mg /3 mL (0.083 %) nebulizer solution 03-15 00:00: 00 Yes [id number] 2.5mg Inhale 3 mL every 4 (four) hours as needed for Wheezing or Shortness of Breath. [facility] levETIRAcet am (KEPPRA) in NACL (ISO-OS) 1,000 mg/100 mL RTU 02-19 20:15: 00 02-19 19:30 :00 No 1000mg 1,000 mg, IV Infusion, ONCE, 1 dose, Thu02/19/21 at 1515, Administer over 15 Minutes, 100 mL [facility] levetiracet am (KEPPRA ORAL) 02-19 19:45: 33 Yes Take by mouth. [facility] levetiracet am (KEPPRA ORAL) 02-19 19:45: 33 Yes Take by mouth. [facility] levetiracet am (KEPPRA ORAL) 02-19 19:45: 33 Yes Take by mouth. [facility] levetiracet am (KEPPRA ORAL) 02-19 19:45: 33 Yes Take by mouth. [facility] levetiracet am (KEPPRA ORAL) 02-19 19:45: 33 Yes Take by mouth. [facility] levetiracet am (KEPPRA ORAL) 02-19 19:45: 33 Yes Take by mouth. [facility] LISINOPRIL- HYDROCHLORO THIAZIDE ORAL 02-19 19:41: 15 02-19 00:00 :00 No Take by mouth. [facility] dicyclomine (BENTYL) injection 20 mg 02-19 19:15: 00 02-19 19:04 :00 No 20mg 20 mg, Intramuscu lar, ONCE, 1 dose, 02/19/21 at 1415, Routine [facility] proMETHazin e (PHENERGAN) 25 mg in NaCl 0.9% (NS) 50 mL piggyback 02-19 19:15: 00 02-19 19:03 :00 No 25mg 25 mg, IV Piggyback, ONCE, 1 dose, 02/19/21 at 1415, 50 mL [facility] morpHINE injection 4 mg 02-19 17:15: 00 02-19 17:05 :00 No 4mg 4 mg, Slow IV Push, ONCE, 1 dose, 02/19/21 at 1215, STAT [facility] NaCl 0.9% (NS) bolus infusion 1,000 mL 02-19 17:15: 00 02-19 19:04 :00 No 1000mL at 999 mL/hr, 1,000 mL, IV Infusion, ONCE, 1 dose, Thu02/19/21 at 1215, STAT [facility] ondansetron (ZOFRAN (PF)) injection 4 mg 02-19 17:00: 00 02-19 15:59 :00 No 4mg 4 mg, Slow IV Push, ONCE, 1 dose, Thu02/19/21 at 1200, MICHAEL [facility] iopamidol (ISOVUE 370-500 mL) injection 100 mL 02-19 16:35: 00 02-19 16:45 :00 No [id number] 100mL 100 mL, Intravenou s, ONCE, 1 dose, Thu02/19/21 at 1145, Routine [facility] levetiracet am (KEPPRA ORAL) 02-19 14:45: 33 Yes Take by mouth. [facility] levetiracet am (KEPPRA ORAL) 02-19 14:45: 33 Yes Take by mouth. [facility] levetiracet am (KEPPRA ORAL) 02-19 14:45: 33 Yes Take by mouth. [facility] levetiracet am (KEPPRA ORAL) 02-19 14:45: 33 Yes Take by mouth. [facility] levetiracet am (KEPPRA ORAL) 02-19 14:45: 33 Yes Take by mouth. [facility] proMETHazin e 25 mg tablet 02-19 00:00: 00 Yes [id number] 25mg Take 1 tablet by mouth every 6 (six) hours as needed for Nausea and Vomiting (N/V). [facility] dicyclomine 20 mg tablet 02-19 00:00: 00 Yes [id number] 20mg Take 1 tablet by mouth 4 (four) times daily as needed for Abdominal pain. [facility] proMETHazin e 25 mg tablet 02-19 00:00: 00 Yes [id number] 25mg Take 1 tablet by mouth every 6 (six) hours as needed for Nausea and Vomiting (N/V). [facility] dicyclomine 20 mg tablet 02-19 00:00: 00 Yes [id number] 20mg Take 1 tablet by mouth 4 (four) times daily as needed for Abdominal pain. [facility] proMETHazin e 25 mg tablet 02-19 00:00: 00 Yes [id number] 25mg Take 1 tablet by mouth every 6 (six) hours as needed for Nausea and Vomiting (N/V). [facility] dicyclomine 20 mg tablet 02-19 00:00: 00 Yes [id number] 20mg Take 1 tablet by mouth 4 (four) times daily as needed for Abdominal pain. [facility] proMETHazin e 25 mg tablet 02-19 00:00: 00 Yes [id number] 25mg Take 1 tablet by mouth every 6 (six) hours as needed for Nausea and Vomiting (N/V). [facility] dicyclomine 20 mg tablet 02-19 00:00: 00 Yes [id number] 20mg Take 1 tablet by mouth 4 (four) times daily as needed for Abdominal pain. [facility] proMETHazin e 25 mg tablet 02-19 00:00: 00 Yes [id number] 25mg Take 1 tablet by mouth every 6 (six) hours as needed for Nausea and Vomiting (N/V). [facility] dicyclomine 20 mg tablet 02-19 00:00: 00 Yes [id number] 20mg Take 1 tablet by mouth 4 (four) times daily as needed for Abdominal pain. [facility] proMETHazin e 25 mg tablet 02-19 00:00: 00 Yes [id number] 25mg Take 1 tablet by mouth every 6 (six) hours as needed for Nausea and Vomiting (N/V). [facility] dicyclomine 20 mg tablet 02-19 00:00: 00 Yes [id number] 20mg Take 1 tablet by mouth 4 (four) times daily as needed for Abdominal pain. [facility] proMETHazin e 25 mg tablet 02-19 00:00: 00 Yes [id number] 25mg Take 1 tablet by mouth every 6 (six) hours as needed for Nausea and Vomiting (N/V). [facility] dicyclomine 20 mg tablet 02-19 00:00: 00 Yes [id number] 20mg Take 1 tablet by mouth 4 (four) times daily as needed for Abdominal pain. [facility] proMETHazin e 25 mg tablet 02-19 00:00: 00 Yes [id number] 25mg Take 1 tablet by mouth every 6 (six) hours as needed for Nausea and Vomiting (N/V). [facility] dicyclomine 20 mg tablet 02-19 00:00: 00 Yes [id number] 20mg Take 1 tablet by mouth 4 (four) times daily as needed for Abdominal pain. [facility] proMETHazin e 25 mg tablet 02-19 00:00: 00 Yes [id number] 25mg Take 1 tablet by mouth every 6 (six) hours as needed for Nausea and Vomiting (N/V). [facility] dicyclomine 20 mg tablet 02-19 00:00: 00 Yes [id number] 20mg Take 1 tablet by mouth 4 (four) times daily as needed for Abdominal pain. [facility] proMETHazin e 25 mg tablet 0 02-19 00:00: 00 Yes [id number] 25mg Take 1 tablet by mouth every 6 (six) hours as needed for Nausea and Vomiting (N/V). [facility] dicyclomine 20 mg tablet 0 02-19 00:00: 00 Yes [id number] 20mg Take 1 tablet by mouth 4 (four) times daily as needed for Abdominal pain. [facility] proMETHazin e 25 mg tablet 02-19 00:00: 00 Yes [id number] 25mg Take 1 tablet by mouth every 6 (six) hours as needed for Nausea and Vomiting (N/V). [facility] dicyclomine 20 mg tablet 02-19 00:00: 00 Yes [id number] 20mg Take 1 tablet by mouth 4 (four) times daily as needed for Abdominal pain. [facility] proMETHazin e 25 mg tablet 02-19 00:00: 00 Yes [id number] 25mg Take 1 tablet by mouth every 6 (six) hours as needed for Nausea and Vomiting (N/V). [facility] dicyclomine 20 mg tablet 02-19 00:00: 00 Yes [id number] 20mg Take 1 tablet by mouth 4 (four) times daily as needed for Abdominal pain. [facility] proMETHazin e 25 mg tablet 02-19 00:00: 00 Yes [id number] 25mg Take 1 tablet by mouth every 6 (six) hours as needed for Nausea and Vomiting (N/V). [facility] dicyclomine 20 mg tablet 02-19 00:00: 00 Yes [id number] 20mg Take 1 tablet by mouth 4 (four) times daily as needed for Abdominal pain. [facility] proMETHazin e 25 mg tablet 02-19 00:00: 00 Yes [id number] 25mg Take 1 tablet by mouth every 6 (six) hours as needed for Nausea and Vomiting (N/V). [facility] dicyclomine 20 mg tablet 02-19 00:00: 00 Yes [id number] 20mg Take 1 tablet by mouth 4 (four) times daily as needed for Abdominal pain. [facility] proMETHazin e 25 mg tablet 02-19 00:00: 00 Yes [id number] 25mg Take 1 tablet by mouth every 6 (six) hours as needed for Nausea and Vomiting (N/V). [facility] dicyclomine 20 mg tablet 0 02-19 00:00: 00 Yes [id number] 20mg Take 1 tablet by mouth 4 (four) times daily as needed for Abdominal pain. [facility] proMETHazin e 25 mg tablet 0 02-19 00:00: 00 Yes [id number] 25mg Take 1 tablet by mouth every 6 (six) hours as needed for Nausea and Vomiting (N/V). [facility] dicyclomine 20 mg tablet 0 02-19 00:00: 00 Yes [id number] 20mg Take 1 tablet by mouth 4 (four) times daily as needed for Abdominal pain. [facility] proMETHazin e 25 mg tablet 0 02-19 00:00: 00 Yes [id number] 25mg Take 1 tablet by mouth every 6 (six) hours as needed for Nausea and Vomiting (N/V). [facility] dicyclomine 20 mg tablet 0 02-19 00:00: 00 Yes [id number] 20mg Take 1 tablet by mouth 4 (four) times daily as needed for Abdominal pain. [facility] proMETHazin e 25 mg tablet 02-19 00:00: 00 Yes [id number] 25mg Take 1 tablet by mouth every 6 (six) hours as needed for Nausea and Vomiting (N/V). [facility] dicyclomine 20 mg tablet 02-19 00:00: 00 Yes [id number] 20mg Take 1 tablet by mouth 4 (four) times daily as needed for Abdominal pain. [facility] proMETHazin e 25 mg tablet 02-19 00:00: 00 Yes [id number] 25mg Take 1 tablet by mouth every 6 (six) hours as needed for Nausea and Vomiting (N/V). [facility] dicyclomine 20 mg tablet 0 02-19 00:00: 00 Yes [id number] 20mg Take 1 tablet by mouth 4 (four) times daily as needed for Abdominal pain. [facility] proMETHazin e 25 mg tablet 0 02-19 00:00: 00 Yes [id number] 25mg Take 1 tablet by mouth every 6 (six) hours as needed for Nausea and Vomiting (N/V). [facility] dicyclomine 20 mg tablet 2020-0 8- 00:00: 00 Yes [id number] 20mg Take 1 tablet by mouth 4 (four) times daily as needed for Abdominal pain. [facility] ZONISAMIDE 100 mg capsule 11-15 00:00: 00 Yes TAKE 1 CAPSULE BY MOUTH TWICE A DAY [facility] ZONISAMIDE 100 mg capsule 11-15 00:00: 00 02-19 00:00 :00 No TAKE 1 CAPSULE BY MOUTH TWICE A DAY [facility] ondansetron (ZOFRAN) 4 mg tablet 02-09 20:05: 01 Yes 4mg Take 4 mg by mouth every 8 (eight) hours as needed. [facility] pantoprazol e (PROTONIX) 40 mg EC tablet 02-09 20:05: 01 Yes 40mg Take 40 mg by mouth daily. [facility] ondansetron (ZOFRAN) 4 mg tablet 02-09 20:05: 01 Yes 4mg Take 4 mg by mouth every 8 (eight) hours as needed. [facility] pantoprazol e (PROTONIX) 40 mg EC tablet 02-09 20:05: 01 Yes 40mg Take 40 mg by mouth daily. [facility] LISINOPRIL- HYDROCHLORO THIAZIDE ORAL 02-09 20:05: 01 Yes Take by mouth. [facility] ondansetron (ZOFRAN) 4 mg tablet 02-09 20:05: 01 Yes 4mg Take 4 mg by mouth every 8 (eight) hours as needed. [facility] pantoprazol e (PROTONIX) 40 mg EC tablet 02-09 20:05: 01 Yes 40mg Take 40 mg by mouth daily. [facility] ondansetron (ZOFRAN) 4 mg tablet 02-09 20:05: 01 Yes 4mg Take 4 mg by mouth every 8 (eight) hours as needed. [facility] pantoprazol e (PROTONIX) 40 mg EC tablet 02-09 20:05: 01 Yes 40mg Take 40 mg by mouth daily. [facility] ondansetron (ZOFRAN) 4 mg tablet 02-09 20:05: 01 Yes 4mg Take 4 mg by mouth every 8 (eight) hours as needed. [facility] pantoprazol e (PROTONIX) 40 mg EC tablet 02-09 20:05: 01 Yes 40mg Take 40 mg by mouth daily. [facility] ondansetron (ZOFRAN) 4 mg tablet 02-09 20:05: 01 Yes 4mg Take 4 mg by mouth every 8 (eight) hours as needed. [facility] pantoprazol e (PROTONIX) 40 mg EC tablet 02-09 20:05: 01 Yes 40mg Take 40 mg by mouth daily. [facility] ondansetron (ZOFRAN) 4 mg tablet 02-09 20:05: 01 Yes 4mg Take 4 mg by mouth every 8 (eight) hours as needed. [facility] pantoprazol e (PROTONIX) 40 mg EC tablet 02-09 20:05: 01 Yes 40mg Take 40 mg by mouth daily. [facility] lisinopril- hydrochloro thiazide 20-12.5 mg per tablet 02-09 20:03: 30 Yes 1{tbl} Take 1 tablet by mouth daily. [facility] lisinopril- hydrochloro thiazide 20-12.5 mg per tablet 02-09 20:03: 30 Yes 1{tbl} Take 1 tablet by mouth daily. [facility] lisinopril- hydrochloro thiazide 20-12.5 mg per tablet 02-09 20:03: 30 Yes 1{tbl} Take 1 tablet by mouth daily. [facility] lisinopril- hydrochloro thiazide 20-12.5 mg per tablet 02-09 20:03: 30 Yes 1{tbl} Take 1 tablet by mouth daily. [facility] lisinopril- hydrochloro thiazide 20-12.5 mg per tablet 02-09 20:03: 30 Yes 1{tbl} Take 1 tablet by mouth daily. [facility] lisinopril- hydrochloro thiazide 20-12.5 mg per tablet 02-09 20:03: 30 Yes 1{tbl} Take 1 tablet by mouth daily. [facility] lisinopril- hydrochloro thiazide 20-12.5 mg per tablet 02-09 20:03: 30 Yes 1{tbl} Take 1 tablet by mouth daily. [facility] omega-3 fatty acids-vitam in E (FISH OIL) 1,000 mg capsule 02-09 19:59: 52 Yes 1g Take 1 g by mouth daily. [facility] omega-3 fatty acids-vitam in E (FISH OIL) 1,000 mg capsule 02-09 19:59: 52 Yes 1g Take 1 g by mouth daily. [facility] omega-3 fatty acids-vitam in E (FISH OIL) 1,000 mg capsule 02-09 19:59: 52 Yes 1g Take 1 g by mouth daily. [facility] omega-3 fatty acids-vitam in E (FISH OIL) 1,000 mg capsule 02-09 19:59: 52 Yes 1g Take 1 g by mouth daily. [facility] omega-3 fatty acids-vitam in E (FISH OIL) 1,000 mg capsule 02-09 19:59: 52 Yes 1g Take 1 g by mouth daily. [facility] omega-3 fatty acids-vitam in E (FISH OIL) 1,000 mg capsule 02-09 19:59: 52 Yes 1g Take 1 g by mouth daily. [facility] omega-3 fatty acids-vitam in E (FISH OIL) 1,000 mg capsule 02-09 19:59: 52 Yes 1g Take 1 g by mouth daily. [facility] MULTIVITAMI N ORAL 02-09 19:58: 14 Yes 1{tbl} Take 1 Tab by mouth daily. [facility] loratadine (CLARITIN LIQUI-GEL) 10 mg capsule 02-09 19:58: 14 Yes Take by mouth daily. [facility] MULTIVITAMI N ORAL 02-09 19:58: 14 Yes 1{tbl} Take 1 Tab by mouth daily. [facility] loratadine (CLARITIN LIQUI-GEL) 10 mg capsule 02-09 19:58: 14 Yes Take by mouth daily. [facility] MULTIVITAMI N ORAL 02-09 19:58: 14 Yes 1{tbl} Take 1 Tab by mouth daily. [facility] loratadine (CLARITIN LIQUI-GEL) 10 mg capsule 02-09 19:58: 14 Yes Take by mouth daily. [facility] MULTIVITAMI N ORAL 02-09 19:58: 14 Yes 1{tbl} Take 1 Tab by mouth daily. [facility] loratadine (CLARITIN LIQUI-GEL) 10 mg capsule 02-09 19:58: 14 Yes Take by mouth daily. [facility] MULTIVITAMI N ORAL 02-09 19:58: 14 Yes 1{tbl} Take 1 Tab by mouth daily. [facility] loratadine (CLARITIN LIQUI-GEL) 10 mg capsule 02-09 19:58: 14 Yes Take by mouth daily. [facility] MULTIVITAMI N ORAL 02-09 19:58: 14 Yes 1{tbl} Take 1 Tab by mouth daily. [facility] loratadine (CLARITIN LIQUI-GEL) 10 mg capsule 02-09 19:58: 14 Yes Take by mouth daily. [facility] MULTIVITAMI N ORAL 02-09 19:58: 14 Yes 1{tbl} Take 1 Tab by mouth daily. [facility] loratadine (CLARITIN LIQUI-GEL) 10 mg capsule 02-09 19:58: 14 Yes Take by mouth daily. [facility] ondansetron (ZOFRAN) 4 mg tablet 02-09 15:05: 01 Yes 4mg Take 4 mg by mouth every 8 (eight) hours as needed. [facility] pantoprazol e (PROTONIX) 40 mg EC tablet 02-09 15:05: 01 Yes 40mg Take 40 mg by mouth daily. [facility] ondansetron (ZOFRAN) 4 mg tablet 02-09 15:05: 01 Yes 4mg Take 4 mg by mouth every 8 (eight) hours as needed. [facility] pantoprazol e (PROTONIX) 40 mg EC tablet 02-09 15:05: 01 Yes 40mg Take 40 mg by mouth daily. [facility] ondansetron (ZOFRAN) 4 mg tablet 02-09 15:05: 01 Yes 4mg Take 4 mg by mouth every 8 (eight) hours as needed. [facility] pantoprazol e (PROTONIX) 40 mg EC tablet 02-09 15:05: 01 Yes 40mg Take 40 mg by mouth daily. [facility] ondansetron (ZOFRAN) 4 mg tablet 02-09 15:05: 01 Yes 4mg Take 4 mg by mouth every 8 (eight) hours as needed. [facility] pantoprazol e (PROTONIX) 40 mg EC tablet 02-09 15:05: 01 Yes 40mg Take 40 mg by mouth daily. [facility] ondansetron (ZOFRAN) 4 mg tablet 02-09 15:05: 01 Yes 4mg Take 4 mg by mouth every 8 (eight) hours as needed. [facility] pantoprazol e (PROTONIX) 40 mg EC tablet 02-09 15:05: 01 Yes 40mg Take 40 mg by mouth daily. [facility] lisinopril- hydrochloro thiazide 20-12.5 mg per tablet 02-09 15:03: 30 Yes 1{tbl} Take 1 tablet by mouth daily. [facility] lisinopril- hydrochloro thiazide 20-12.5 mg per tablet 02-09 15:03: 30 Yes 1{tbl} Take 1 tablet by mouth daily. [facility] lisinopril- hydrochloro thiazide 20-12.5 mg per tablet 02-09 15:03: 30 Yes 1{tbl} Take 1 tablet by mouth daily. [facility] lisinopril- hydrochloro thiazide 20-12.5 mg per tablet 02-09 15:03: 30 Yes 1{tbl} Take 1 tablet by mouth daily. [facility] lisinopril- hydrochloro thiazide 20-12.5 mg per tablet 02-09 15:03: 30 Yes 1{tbl} Take 1 tablet by mouth daily. [facility] omega-3 fatty acids-vitam in E (FISH OIL) 1,000 mg capsule 02-09 14:59: 52 Yes 1g Take 1 g by mouth daily. [facility] omega-3 fatty acids-vitam in E (FISH OIL) 1,000 mg capsule 02-09 14:59: 52 Yes 1g Take 1 g by mouth daily. [facility] omega-3 fatty acids-vitam in E (FISH OIL) 1,000 mg capsule 02-09 14:59: 52 Yes 1g Take 1 g by mouth daily. [facility] omega-3 fatty acids-vitam in E (FISH OIL) 1,000 mg capsule 02-09 14:59: 52 Yes 1g Take 1 g by mouth daily. [facility] omega-3 fatty acids-vitam in E (FISH OIL) 1,000 mg capsule 02-09 14:59: 52 Yes 1g Take 1 g by mouth daily. [facility] MULTIVITAMI N ORAL 02-09 14:58: 14 Yes 1{tbl} Take 1 Tab by mouth daily. [facility] loratadine (CLARITIN LIQUI-GEL) 10 mg capsule 02-09 14:58: 14 Yes Take by mouth daily. [facility] MULTIVITAMI N ORAL 02-09 14:58: 14 Yes 1{tbl} Take 1 Tab by mouth daily. [facility] loratadine (CLARITIN LIQUI-GEL) 10 mg capsule 02-09 14:58: 14 Yes Take by mouth daily. [facility] MULTIVITAMI N ORAL 02-09 14:58: 14 Yes 1{tbl} Take 1 Tab by mouth daily. [facility] loratadine (CLARITIN LIQUI-GEL) 10 mg capsule 02-09 14:58: 14 Yes Take by mouth daily. [facility] MULTIVITAMI N ORAL 02-09 14:58: 14 Yes 1{tbl} Take 1 Tab by mouth daily. [facility] loratadine (CLARITIN LIQUI-GEL) 10 mg capsule 02-09 14:58: 14 Yes Take by mouth daily. [facility] MULTIVITAMI N ORAL 02-09 14:58: 14 Yes 1{tbl} Take 1 Tab by mouth daily. [facility] loratadine (CLARITIN LIQUI-GEL) 10 mg capsule 02-09 14:58: 14 Yes Take by mouth daily. [facility] proMETHazin e (PHENERGAN) 25 mg tablet 11-20 00:00: 00 Yes 25mg Take 1 tablet by mouth every 6 (six) hours as needed for Nausea and Vomiting (N/V). [facility] proMETHazin e (PHENERGAN) 25 mg tablet 11-20 00:00: 00 02-19 00:00 :00 No 25mg Take 1 tablet by mouth every 6 (six) hours as needed for Nausea and Vomiting (N/V). [facility] carvedilol (COREG) 6.25 mg tablet 09-19 00:00: 00 Yes 6.25mg Take 1 Tab by mouth 2 (two) times daily with meals. [facility] amLODIPine (NORVASC) 10 mg tablet 09-19 00:00: 00 Yes 10mg Take 1 Tab by mouth daily. [facility] lisinopril (PRINIVIL,Z ESTRIL) 40 mg tablet 09-19 00:00: 00 Yes 40mg Take 1 Tab by mouth daily. [facility] carvedilol (COREG) 6.25 mg tablet 09-19 00:00: 00 Yes 6.25mg Take 1 Tab by mouth 2 (two) times daily with meals. [facility] amLODIPine (NORVASC) 10 mg tablet 09-19 00:00: 00 Yes 10mg Take 1 Tab by mouth daily. [facility] lisinopril (PRINIVIL,Z ESTRIL) 40 mg tablet 09-19 00:00: 00 Yes 40mg Take 1 Tab by mouth daily. [facility] carvedilol (COREG) 6.25 mg tablet 09-19 00:00: 00 Yes 6.25mg Take 1 Tab by mouth 2 (two) times daily with meals. [facility] amLODIPine (NORVASC) 10 mg tablet 09-19 00:00: 00 Yes 10mg Take 1 Tab by mouth daily. [facility] lisinopril (PRINIVIL,Z ESTRIL) 40 mg tablet 09-19 00:00: 00 Yes 40mg Take 1 Tab by mouth daily. [facility] carvedilol (COREG) 6.25 mg tablet 09-19 00:00: 00 Yes 6.25mg Take 1 Tab by mouth 2 (two) times daily with meals. [facility] amLODIPine (NORVASC) 10 mg tablet 09-19 00:00: 00 Yes 10mg Take 1 Tab by mouth daily. [facility] lisinopril (PRINIVIL,Z ESTRIL) 40 mg tablet 09-19 00:00: 00 Yes 40mg Take 1 Tab by mouth daily. [facility] carvedilol (COREG) 6.25 mg tablet 09-19 00:00: 00 Yes 6.25mg Take 1 Tab by mouth 2 (two) times daily with meals. [facility] amLODIPine (NORVASC) 10 mg tablet 09-19 00:00: 00 Yes 10mg Take 1 Tab by mouth daily. [facility] lisinopril (PRINIVIL,Z ESTRIL) 40 mg tablet 09-19 00:00: 00 Yes 40mg Take 1 Tab by mouth daily. [facility] carvedilol (COREG) 6.25 mg tablet 09-19 00:00: 00 Yes 6.25mg Take 1 Tab by mouth 2 (two) times daily with meals. [facility] amLODIPine (NORVASC) 10 mg tablet 09-19 00:00: 00 Yes 10mg Take 1 Tab by mouth daily. [facility] lisinopril (PRINIVIL,Z ESTRIL) 40 mg tablet 09-19 00:00: 00 Yes 40mg Take 1 Tab by mouth daily. [facility] carvedilol (COREG) 6.25 mg tablet 09-19 00:00: 00 Yes 6.25mg Take 1 Tab by mouth 2 (two) times daily with meals. [facility] amLODIPine (NORVASC) 10 mg tablet 09-19 00:00: 00 Yes 10mg Take 1 Tab by mouth daily. [facility] lisinopril (PRINIVIL,Z ESTRIL) 40 mg tablet 09-19 00:00: 00 Yes 40mg Take 1 Tab by mouth daily. [facility] carvedilol (COREG) 6.25 mg tablet 09-19 00:00: 00 Yes 6.25mg Take 1 Tab by mouth 2 (two) times daily with meals. [facility] amLODIPine (NORVASC) 10 mg tablet 09-19 00:00: 00 Yes 10mg Take 1 Tab by mouth daily. [facility] lisinopril (PRINIVIL,Z ESTRIL) 40 mg tablet 09-19 00:00: 00 Yes 40mg Take 1 Tab by mouth daily. [facility] carvedilol (COREG) 6.25 mg tablet 09-19 00:00: 00 Yes 6.25mg Take 1 Tab by mouth 2 (two) times daily with meals. [facility] amLODIPine (NORVASC) 10 mg tablet 09-19 00:00: 00 Yes 10mg Take 1 Tab by mouth daily. [facility] lisinopril (PRINIVIL,Z ESTRIL) 40 mg tablet 09-19 00:00: 00 Yes 40mg Take 1 Tab by mouth daily. [facility] carvedilol (COREG) 6.25 mg tablet 09-19 00:00: 00 Yes 6.25mg Take 1 Tab by mouth 2 (two) times daily with meals. [facility] amLODIPine (NORVASC) 10 mg tablet 09-19 00:00: 00 Yes 10mg Take 1 Tab by mouth daily. [facility] lisinopril (PRINIVIL,Z ESTRIL) 40 mg tablet 09-19 00:00: 00 Yes 40mg Take 1 Tab by mouth daily. [facility] carvedilol (COREG) 6.25 mg tablet 09-19 00:00: 00 Yes 6.25mg Take 1 Tab by mouth 2 (two) times daily with meals. [facility] amLODIPine (NORVASC) 10 mg tablet 09-19 00:00: 00 Yes 10mg Take 1 Tab by mouth daily. [facility] lisinopril (PRINIVIL,Z ESTRIL) 40 mg tablet 09-19 00:00: 00 Yes 40mg Take 1 Tab by mouth daily. [facility] carvedilol (COREG) 6.25 mg tablet 09-19 00:00: 00 Yes 6.25mg Take 1 Tab by mouth 2 (two) times daily with meals. [facility] amLODIPine (NORVASC) 10 mg tablet 09-19 00:00: 00 Yes 10mg Take 1 Tab by mouth daily. [facility] lisinopril (PRINIVIL,Z ESTRIL) 40 mg tablet 09-19 00:00: 00 Yes 40mg Take 1 Tab by mouth daily. [facility] carvedilol (COREG) 6.25 mg tablet 09-19 00:00: 00 Yes 6.25mg Take 1 Tab by mouth 2 (two) times daily with meals. [facility] amLODIPine (NORVASC) 10 mg tablet 09-19 00:00: 00 Yes 10mg Take 1 Tab by mouth daily. [facility] lisinopril (PRINIVIL,Z ESTRIL) 40 mg tablet 09-19 00:00: 00 Yes 40mg Take 1 Tab by mouth daily. [facility] carvedilol (COREG) 6.25 mg tablet 09-19 00:00: 00 Yes 6.25mg Take 1 Tab by mouth 2 (two) times daily with meals. [facility] amLODIPine (NORVASC) 10 mg tablet 09-19 00:00: 00 Yes 10mg Take 1 Tab by mouth daily. [facility] lisinopril (PRINIVIL,Z ESTRIL) 40 mg tablet 09-19 00:00: 00 Yes 40mg Take 1 Tab by mouth daily. [facility] carvedilol (COREG) 6.25 mg tablet 09-19 00:00: 00 Yes 6.25mg Take 1 Tab by mouth 2 (two) times daily with meals. [facility] amLODIPine (NORVASC) 10 mg tablet 09-19 00:00: 00 Yes 10mg Take 1 Tab by mouth daily. [facility] lisinopril (PRINIVIL,Z ESTRIL) 40 mg tablet 09-19 00:00: 00 Yes 40mg Take 1 Tab by mouth daily. [facility] carvedilol (COREG) 6.25 mg tablet 09-19 00:00: 00 Yes 6.25mg Take 1 Tab by mouth 2 (two) times daily with meals. [facility] amLODIPine (NORVASC) 10 mg tablet 09-19 00:00: 00 Yes 10mg Take 1 Tab by mouth daily. [facility] lisinopril (PRINIVIL,Z ESTRIL) 40 mg tablet 09-19 00:00: 00 Yes 40mg Take 1 Tab by mouth daily. [facility] carvedilol (COREG) 6.25 mg tablet 09-19 00:00: 00 Yes 6.25mg Take 1 Tab by mouth 2 (two) times daily with meals. [facility] amLODIPine (NORVASC) 10 mg tablet 09-19 00:00: 00 Yes 10mg Take 1 Tab by mouth daily. [facility] lisinopril (PRINIVIL,Z ESTRIL) 40 mg tablet 09-19 00:00: 00 Yes 40mg Take 1 Tab by mouth daily. [facility] carvedilol (COREG) 6.25 mg tablet 09-19 00:00: 00 Yes 6.25mg Take 1 Tab by mouth 2 (two) times daily with meals. [facility] amLODIPine (NORVASC) 10 mg tablet 09-19 00:00: 00 Yes 10mg Take 1 Tab by mouth daily. [facility] lisinopril (PRINIVIL,Z ESTRIL) 40 mg tablet 09-19 00:00: 00 Yes 40mg Take 1 Tab by mouth daily. [facility] carvedilol (COREG) 6.25 mg tablet 09-19 00:00: 00 Yes 6.25mg Take 1 Tab by mouth 2 (two) times daily with meals. [facility] amLODIPine (NORVASC) 10 mg tablet 09-19 00:00: 00 Yes 10mg Take 1 Tab by mouth daily. [facility] lisinopril (PRINIVIL,Z ESTRIL) 40 mg tablet 09-19 00:00: 00 Yes 40mg Take 1 Tab by mouth daily. [facility] carvedilol (COREG) 6.25 mg tablet 09-19 00:00: 00 Yes 6.25mg Take 1 Tab by mouth 2 (two) times daily with meals. [facility] amLODIPine (NORVASC) 10 mg tablet 09-19 00:00: 00 Yes 10mg Take 1 Tab by mouth daily. [facility] lisinopril (PRINIVIL,Z ESTRIL) 40 mg tablet 09-19 00:00: 00 Yes 40mg Take 1 Tab by mouth daily. [facility] carvedilol (COREG) 6.25 mg tablet 09-19 00:00: 00 Yes 6.25mg Take 1 Tab by mouth 2 (two) times daily with meals. [facility] amLODIPine (NORVASC) 10 mg tablet 09-19 00:00: 00 Yes 10mg Take 1 Tab by mouth daily. [facility] lisinopril (PRINIVIL,Z ESTRIL) 40 mg tablet 09-19 00:00: 00 Yes 40mg Take 1 Tab by mouth daily. [facility] Immunizations Ordered Immunization Name Filled Immunization Name Date Status Comments Source SARS-COV-2 COVID-19 PFIZER BA-SUCROSE VACCINE (ROSE TOP) 2022-02-19 00:00:00 Completed [facility] SARS-COV-2 COVID-19 PFIZER BA-SUCROSE VACCINE (ROSE TOP) 2022-02-19 00:00:00 Completed [facility] SARS-COV-2 COVID-19 PFIZER BA-SUCROSE VACCINE (ROSE TOP) 2022-02-19 00:00:00 Completed [facility] SARS-COV-2 COVID-19 PFIZER BA-SUCROSE VACCINE (ROSE TOP) 2022-02-19 00:00:00 Completed [facility] SARS-COV-2 COVID-19 PFIZER BA-SUCROSE VACCINE (ROSE TOP) 2022-02-19 00:00:00 Completed [facility] SARS-COV-2 COVID-19 PFIZER BA-SUCROSE VACCINE (ROSE TOP) 2022-02-19 00:00:00 Completed [facility] SARS-COV-2 COVID-19 PFIZER BA-SUCROSE VACCINE (ROSE TOP) 2022-02-19 00:00:00 Completed [facility] SARS-COV-2 COVID-19 PFIZER BA-SUCROSE VACCINE (ROSE TOP) 2022-02-19 00:00:00 Completed [facility] SARS-COV-2 COVID-19 PFIZER BA-SUCROSE VACCINE (ROSE TOP) 2022-02-19 00:00:00 Completed [facility] SARS-COV-2 COVID-19 PFIZER VACCINE 2021-05-24 00:00:00 Completed [facility] SARS-COV-2 COVID-19 PFIZER VACCINE 2021-05-24 00:00:00 Completed [facility] SARS-COV-2 COVID-19 PFIZER VACCINE 2021-05-24 00:00:00 Completed [facility] SARS-COV-2 COVID-19 PFIZER VACCINE 2021-05-24 00:00:00 Completed [facility] SARS-COV-2 COVID-19 PFIZER VACCINE 2021-05-24 00:00:00 Completed [facility] SARS-COV-2 COVID-19 PFIZER VACCINE 2021-05-24 00:00:00 Completed [facility] SARS-COV-2 COVID-19 PFIZER VACCINE 2021-05-24 00:00:00 Completed [facility] SARS-COV-2 COVID-19 PFIZER VACCINE 2021-05-24 00:00:00 Completed [facility] SARS-COV-2 COVID-19 PFIZER VACCINE 2021-05-24 00:00:00 Completed [facility] SARS-COV-2 COVID-19 PFIZER VACCINE 2021-05-24 00:00:00 Completed [facility] SARS-COV-2 COVID-19 PFIZER VACCINE 2021-05-24 00:00:00 Completed [facility] SARS-COV-2 COVID-19 PFIZER VACCINE 2021-05-03 00:00:00 Completed [facility] SARS-COV-2 COVID-19 PFIZER VACCINE 2021-05-03 00:00:00 Completed [facility] SARS-COV-2 COVID-19 PFIZER VACCINE 2021-05-03 00:00:00 Completed [facility] SARS-COV-2 COVID-19 PFIZER VACCINE 2021-05-03 00:00:00 Completed [facility] SARS-COV-2 COVID-19 PFIZER VACCINE 2021-05-03 00:00:00 Completed [facility] SARS-COV-2 COVID-19 PFIZER VACCINE 2021-05-03 00:00:00 Completed [facility] SARS-COV-2 COVID-19 PFIZER VACCINE 2021-05-03 00:00:00 Completed [facility] SARS-COV-2 COVID-19 PFIZER VACCINE 2021-05-03 00:00:00 Completed [facility] SARS-COV-2 COVID-19 PFIZER VACCINE 2021-05-03 00:00:00 Completed [facility] SARS-COV-2 COVID-19 PFIZER VACCINE 2021-05-03 00:00:00 Completed [facility] SARS-COV-2 COVID-19 PFIZER VACCINE 2021-05-03 00:00:00 Completed [facility] SARS-COV-2 COVID-19 PFIZER VACCINE 2021-05-03 00:00:00 Completed [facility] SARS-COV-2 COVID-19 PFIZER VACCINE Unknown Completed [facility] SARS-COV-2 COVID-19 PFIZER VACCINE Unknown Completed [facility] SARS-COV-2 COVID-19 PFIZER BA-SUCROSE VACCINE (ROSE TOP) Unknown Completed [facility] Vital Signs Vital Name Observation Time Observation Value Comments S ource Systolic blood pressure 2023-09-11 17:27:00 122 mm[Hg] Cynthia Seybo ld - External Diastolic blood pressure 2023-09-11 17:27:00 74 mm[Hg] Cynthia ybo ld - External Heart rate 2023-09-11 17:27:00 80 /min Kimani y Seybold - External Body temperature 2023-09-11 17:27:00 36.72 Radha Cynthia Macdonaldybold - External Respiratory rate 2023-09-11 17:27:00 18 /min Cynthia Macdonaldybold - External Body height 2023-09-11 17:27:00 159.4 cm Esthela ey Seybold - External Body weight 2023-09-11 17:27:00 80.74 kg Esthela ey Seybold - External BMI 2023-09-11 17:27:00 31.78 kg/m2 Esthela ey Seybold - External Oxygen saturation in Arterial blood by Pulse oximetry 2023-09-11 17:27:00 97 /min Cynthia Macdonaldybo ld - External Systolic blood pressure 2023-08-12 21:00:00 130 mm[Hg] [facility] Diastolic blood pressure 2023-08-12 21:00:00 85 mm[Hg] [facility] Heart rate 2023-08-12 21:00:00 106 /min [facility] Respiratory rate 2023-08-12 21:00:00 14 /min [facility] Oxygen saturation in Arterial blood by Pulse oximetry 2023-08-12 21:00:00 95 /min [facility] Body temperature 2023-08-12 20:34:54 37.22 Radha [facility] Body height 2023-08-12 19:47:[address] [facility] Body weight 2023-08-12 19:47:[address] [facility] BMI 2023-08-12 19:47:00 32.92 kg/m2 [facility] WEIGHT 2023-06-16 05:26:00 86.047 kg HEIGHT 2023-06-13 [...] Systolic blood pressure 2022-12-11 20:00:00 142 mm[Hg] [facility] Diastolic blood pressure 2022-12-11 20:00:00 90 mm[Hg] [facility] Respiratory rate 2022-12-11 20:00:00 24 /min [facility] Heart rate 2022-12-11 18:00:00 101 /min [facility] Oxygen saturation in Arterial blood by Pulse oximetry 2022-12-11 18:00:00 93 /min [facility] BMI 2022-12-11 13:55:00 35.43 kg/m2 [facility] Body temperature 2022-12-11 13:55:00 37.22 Radha [facility] Body weight 2022-12-11 13:55:[address] [facility] Systolic blood pressure 2022-11-18 05:34:00 152 mm[Hg] [facility] Diastolic blood pressure 2022-11-18 05:34:00 98 mm[Hg] [facility] Heart rate 2022-11-18 05:34:00 88 /min [facility] Respiratory rate 2022-11-18 05:34:00 18 /min [facility] Oxygen saturation in Arterial blood by Pulse oximetry 2022-11-18 05:34:00 97 /min [facility] Body temperature 2022-11-17 22:28:00 37.06 [facility] Body height 2022-11-17 22:28:[address] [facility] Body weight 2022-11-17 22:28:[address] [facility] BMI 2022-11-17 22:28:00 38.97 kg/m2 [facility] Heart rate 2022-08-02 02:02:00 108 /min [facility] Respiratory rate 2022-08-02 02:02:00 28 /min [facility] Oxygen saturation in Arterial blood by Pulse oximetry 2022-08-02 02:02:00 97 /min [facility] Body temperature 2022-08-02 01:00:00 36.44 Radha [facility] Systolic blood pressure 2022-08-01 23:29:00 145 mm[Hg] [facility] Diastolic blood pressure 2022-08-01 23:29:00 103 mm[Hg] [facility] Body weight 2022-08-01 09:16:[address] [facility] BMI 2022-08-01 09:16:00 38.26 kg/m2 [facility] Body height 2022-07-31 21:54:[address] [facility] Systolic blood pressure 2022-05-08 16:40:00 146 mm[Hg] [facility] Diastolic blood pressure 2022-05-08 16:40:00 96 mm[Hg] [facility] Heart rate 2022-05-08 16:40:00 112 /min [facility] Body temperature 2022-05-08 16:40:00 36.78 Radha [facility] Respiratory rate 2022-05-08 16:40:00 18 /min [facility] Oxygen saturation in Arterial blood by Pulse oximetry 2022-05-08 16:40:00 94 /min [facility] Body height 2022-05-05 23:44:[address] [facility] Body weight 2022-05-05 23:37:[address] [facility] BMI 2022-05-05 23:37:00 31.89 kg/m2 [facility] Systolic blood pressure 2022-04-15 18:52:00 104 mm[Hg] [facility] Diastolic blood pressure 2022-04-15 18:52:00 82 mm[Hg] [facility] Heart rate 2022-04-15 18:52:00 114 /min [facility] Oxygen saturation in Arterial blood by Pulse oximetry 2022-04-15 18:52:00 98 /min [facility] Body temperature 2022-04-15 16:14:00 36.28 Radha [facility] Respiratory rate 2022-04-15 16:14:00 17 /min [facility] Body height 2022-04-13 21:08:[address] [facility] Body weight 2022-04-13 21:08:[address] [facility] BMI 2022-04-13 21:08:00 35.61 kg/m2 [facility] Systolic blood pressure 2021-11-23 21:30:00 132 mm[Hg] [facility] Diastolic blood pressure 2021-11-23 21:30:00 76 mm[Hg] [facility] Heart rate 2021-11-23 21:30:00 95 /min [facility] Respiratory rate 2021-11-23 21:30:00 13 /min [facility] Oxygen saturation in Arterial blood by Pulse oximetry 2021-11-23 21:30:00 97 /min [facility] Body temperature 2021-11-23 20:15:00 37.56 Radha [facility] Systolic blood pressure 2021-03-17 03:00:00 117 mm[Hg] [facility] Diastolic blood pressure 2021-03-17 03:00:00 76 mm[Hg] [facility] Heart rate 2021-03-17 03:00:00 104 /min [facility] Respiratory rate 2021-03-17 03:00:00 28 /min [facility] Oxygen saturation in Arterial blood by Pulse oximetry 2021-03-17 03:00:00 96 /min [facility] Body temperature 2021-03-17 00:39:00 37.11 Radha [facility] Body height 2021-03-17 00:39:[address] [facility] Body weight 2021-03-17 00:39:[address] [facility] BMI 2021-03-17 00:39:00 23.03 kg/m2 [facility] Systolic blood pressure 2021-03-15 00:14:00 149 mm[Hg] [facility] Diastolic blood pressure 2021-03-15 00:14:00 78 mm[Hg] [facility] Heart rate 2021-03-15 00:14:00 100 /min [facility] Body temperature 2021-03-15 00:14:00 37.33 Radha [facility] Respiratory rate 2021-03-15 00:14:00 24 /min [facility] Body height 2021-03-15 00:14:[address] [facility] Body weight 2021-03-15 00:14:[address] [facility] BMI 2021-03-15 00:14:00 23.03 kg/m2 [facility] Oxygen saturation in Arterial blood by Pulse oximetry 2021-03-15 00:14:00 98 /min [facility] Systolic blood pressure 2021-02-19 18:00:00 131 mm[Hg] [facility] Diastolic blood pressure 2021-02-19 18:00:00 80 mm[Hg] [facility] Heart rate 2021-02-19 18:00:00 83 /min [facility] Respiratory rate 2021-02-19 18:00:00 18 /min [facility] Oxygen saturation in Arterial blood by Pulse oximetry 2021-02-19 18:00:00 100 /min [facility] Body temperature 2021-02-19 15:47:00 37 Radha [facility] Body height 2021-02-19 15:47:[address] [facility] Body weight 2021-02-19 15:47:[address] [facility] BMI 2021-02-19 15:47:00 23.03 kg/m2 [facility] Heart rate 2023-09-08 08:54:00 118 /min [facility] [place] Respiratory rate 2023-09-08 08:54:00 21 /min [facility] Oxygen saturation in Arterial blood by Pulse oximetry 2023-09-08 08:54:00 100 /min [facility] Systolic blood pressure 2023-09-08 08:32:00 110 mm[Hg] [facility] Diastolic blood pressure 2023-09-08 08:32:00 77 mm[Hg] [facility] Body temperature 2023-09-08 08:32:00 36.06 Radha [facility] Body height 2023-09-04 00:58:00 157.5 cm [facility] Body weight 2023-09-04 00:58:00 80 kg [facility] BMI 2023-09-04 00:58:00 32.26 kg/m2 [facility] Heart rate 2023-06-16 17:00:00 108 /min [facility] [place] Systolic blood pressure 2023-06-16 15:31:00 101 mm[Hg] [facility] Diastolic blood pressure 2023-06-16 15:31:00 81 mm[Hg] [facility] Body temperature 2023-06-16 15:31:00 36.61 Radha [facility] Respiratory rate 2023-06-16 15:31:00 18 /min [facility] Oxygen saturation in Arterial blood by Pulse oximetry 2023-06-16 15:31:00 94 /min [facility] Body weight 2023-06-16 05:26:00 86.047 kg [facility] BMI 2023-06-16 05:26:00 33.60 kg/m2 [facility] Body height 2023-06-13 04:00:00 160 cm [facility] Systolic blood pressure 2023-06-04 13:02:00 93 mm[Hg] [facility] Diastolic blood pressure 2023-06-04 13:02:00 57 mm[Hg] [facility] Heart rate 2023-06-04 13:02:00 101 /min [facility] [place] Respiratory rate 2023-06-04 13:02:00 22 /min [facility] Oxygen saturation in Arterial blood by Pulse oximetry 2023-06-04 13:02:00 95 /min room air [facility] Body temperature 2023-06-04 11:46:00 35.28 Radha [facility] Systolic blood pressure 2023-05-28 16:00:00 154 mm[Hg] [facility] Diastolic blood pressure 2023-05-28 16:00:00 82 mm[Hg] [facility] Heart rate 2023-05-28 16:00:00 89 /min [facility] [place] Body temperature 2023-05-28 16:00:00 36.67 Radha [facility] Respiratory rate 2023-05-28 16:00:00 16 /min [facility] Oxygen saturation in Arterial blood by Pulse oximetry 2023-05-28 16:00:00 97 /min [facility] Body height 2023-05-28 07:00:00 157.5 cm [facility] Body weight 2023-05-28 07:00:00 87.544 kg [facility] BMI 2023-05-28 07:00:00 35.30 kg/m2 [facility] Body height 2023-05-26 09:12:00 157.5 cm [facility] Body weight 2023-05-26 09:12:00 87.091 kg [facility] BMI 2023-05-26 09:12:00 35.12 kg/m2 [facility] Respiratory rate 2023-04-02 16:35:00 18 /min [facility] Oxygen saturation in Arterial blood by Pulse oximetry 2023-04-02 16:35:00 98 /min [facility] Systolic blood pressure 2023-04-02 12:00:00 147 mm[Hg] [facility] Diastolic blood pressure 2023-04-02 12:00:00 97 mm[Hg] [facility] Heart rate 2023-04-02 12:00:00 106 /min [facility] [place] Body temperature 2023-04-02 12:00:00 36.28 Radha [facility] Body height 2023-03-30 02:14:00 157.5 cm [facility] Body weight 2023-03-30 02:14:00 92.08 kg [facility] BMI 2023-03-30 02:14:00 37.13 kg/m2 [facility] Respiratory rate 2022-08-03 14:40:00 18 /min [facility] Systolic blood pressure 2022-08-03 12:13:00 112 mm[Hg] [facility] Diastolic blood pressure 2022-08-03 12:13:00 77 mm[Hg] [facility] Heart rate 2022-08-03 12:13:00 115 /min [facility] [place] Oxygen saturation in Arterial blood by Pulse oximetry 2022-08-03 12:13:00 93 /min [facility] Body temperature 2022-08-03 12:00:00 36.83 Radha [facility] Body height 2022-08-02 21:52:00 160.2 cm [facility] Body weight 2022-08-02 21:52:00 95 kg [facility] BMI 2022-08-02 21:52:00 37.02 kg/m2 [facility] BP Systolic 2022-07-24 13:31:00 [...] Date / Time Performed Performing Clinician Source POCT-GLUCOSE METER 2023-09-08 08:40:00 [facility] CBC W/PLT COUNT & AUTO DIFFERENTIAL 2023-09-08 04:16:00 [facility] BASIC METABOLIC PANEL 2023-09-08 04:16:00 [facility] MAGNESIUM 2023-09-08 04:16:00 [facility] PHOSPHORUS 2023-09-08 04:16:00 [facility] CBC W/PLT COUNT & AUTO DIFFERENTIAL 2023-09-08 04:16:00 [facility] POCT-GLUCOSE METER 2023-09-07 21:29:00 [facility] [facility] XR KNEE 3 VIEWS LEFT 2023-09-07 19:21[facility] DOPPL[facility] LEGS BILATERAL 2023-09-07 12:45:00 [facility] CBC W/PLT COUNT & AUTO DIFFERENTIAL 2023-09-07 03:17:00 [facility] BASIC METABOLIC PANEL 2023-09-07 03:17:00 [facility] MAGNESIUM 2023-09-07 03:17:00 [facility] PHOSPHORUS 2023-09-07 03:17:00 [facility] CBC W/PLT COUNT & AUTO DIFFERENTIAL 2023-09-07 03:17:00 [facility] POCT-GLUCOSE METER 2023-09-06 21:17:00 [facility] POCT-GLUCOSE METER 2023-09-06 18:37:00 [facility] POCT-GLUCOSE METER 2023-09-06 13:16:00 [facility] POCT-GLUCOSE METER 2023-09-06 08:21:00 [facility] CBC W/PLT COUNT & AUTO DIFFERENTIAL 2023-09-06 04:49:00 [facility] BASIC METABOLIC PANEL 2023-09-06 04:49:00 [facility] MAGNESIUM 2023-09-06 04:49:00 [facility] PHOSPHORUS 2023-09-06 04:49:00 [facility] CBC W/PLT COUNT & AUTO DIFFERENTIAL 2023-09-06 04:49:00 [facility] POCT-GLUCOSE METER 2023-09-05 21:24:00 [facility] MR BRAIN WITH & WITHOUT IV CONTRAST 2023-09-05 11:25:07 Sandi Aleman [facility] POCT-GLUCOSE METER 2023-09-05 08:10:00 [facility] CBC W/PLT COUNT & AUTO DIFFERENTIAL 2023-09-05 04:44:00 [facility] BASIC METABOLIC PANEL 2023-09-05 04:44:00 [facility] MAGNESIUM 2023-09-05 04:44:00 [facility] PHOSPHORUS 2023-09-05 04:44:00 [facility] POCT-GLUCOSE METER 2023-09-05 04:44:00 [facility] CBC W/PLT COUNT & AUTO DIFFERENTIAL 2023-09-05 04:44:00 [facility] POCT-GLUCOSE METER 2023-09-04 21:38:00 [facility] POCT-GLUCOSE METER 2023-09-04 15:42[facility] SARS-COV2/INFLUENZA/RSV RT-PCR 2023-09-04 11:25:00 Uli [facility] POCT-GLUCOSE METER 2023-09-04 10:53:[address] [facility] POCT-GLUCOSE METER 2023-09-04 08:04:00 Sabas [facility] PROCALCITONIN 2023-09-04 06:56:00 Uli [facility] IRON, TIBC, % SAT. (WITHOUT FERRITIN) 2023-09-04 06:56:00 Uli [facility] FERRITIN 2023-09-04 06:56:00 Uli [facility] BLOOD CULTURE 2023-09-04 06:37:00 Randall [facility] MR LUMBAR SPINE WITHOUT IV CONTRAST 2023-09-04 05:47:25 Melvi [facility] MR THORACIC SPINE WITHOUT IV CONTRAST 2023-09-04 04:53:00 Melvi [facility] MR CERVICAL SPINE WITHOUT IV CONTRAST 2023-09-04 04:18:00 Melvi [facility] CT THORACIC SPINE WITHOUT IV CONTRAST 2023-09-04 03:08:00 Randall [facility] CT LUMBAR SPINE WITHOUT IV CONTRAST 2023-09-04 03:08:00 Randall [facility] LACTIC ACID, VENOUS 2023-09-04 01:42:00 Makayla [facility] TYPE AND SCREEN, AUTOMATED 2023-09-04 01:42:00 Makayla [facility] CBC W/PLT COUNT & AUTO DIFFERENTIAL 2023-09-04 00:51:00 Melvi [facility] COMPREHENSIVE METABOLIC PANEL 2023-09-04 00:51:00 Melvi [facility] MAGNESIUM 2023-09-04 00:51:00 Postsantana [facility] PHOSPHORUS 2023-09-04 00:51:00 Melvi [facility] PROTHROMBIN TIME/INR 2023-09-04 00:51:00 Melvi [facility] APTT 2023-09-04 00:51:00 Melvi [facility] B-TYPE NATRIURETIC FACTOR (BNP) 2023-09-04 00:51:00 Melvi [facility] URINALYSIS WITHOUT MICROSCOPIC 2023-09-04 00:51:00 Melvi [facility] RAPID DRUG SCREEN, URINE 2023-09-04 00:51:00 Melvi [facility] D-DIMER 2023-09-04 00:51:00 London Loyola [facility] FIBRINOGEN 2023-09-04 00:51:00 Jorge Pereira [facility] CBC W/PLT COUNT & AUTO DIFFERENTIAL 2023-09-04 00:51:00 Postsantana [facility] EKG-SCANNED 2023-09-04 00:00:00 Eliceo Montanez [facility] LACTIC ACID WHOLE BLOOD 2023-08-12 20:31:00 Brian Bryan [facility] COMP. METABOLIC PANEL (08906) 2023-08-12 20:29:00 Brian Bryan [facility] CBC WITH DIFF 2023-08-12 20:29:00 Brian Bryan [facility] CONSENT/REFUSAL FOR DIAGNOSI S AND TREATMENT 2023-08-12 19:43:16 Doctor Unassigned, Marty [facility] TRANSESOPHAGEAL ECHO 2023-06-16 11:05:00 Torrey [facility] T SPOT TB 2023-06-15 04:51:00 Rossy [facility] FUNGITELL R B-D-GLUCAN WITH REFLEX TO TITER 2023-06-15 04:51:00 Rossy [facility] ASPERGILLUS GALACTOMANNAN ANTIGEN 2023-06-15 04:51:00 Rossy [facility] VANCOMYCIN LEVEL, TROUGH 2023-06-15 04:51:00 Kaylene Mendosa [facility] T-SPOT(R).TB (QUEST) 2023-06-15 04:27:00 System, Provider Not In [facility] T-SPOT(R).TB (QUEST) 2023-06-15 04:27:00 System, Provider Not In [facility] ECHO W CONTRAST & DOPPLER 2023-06-14 09:22:00 [facility] HEMOGLOBIN A1C 2023-06-14 04:08:00 Cara Burgess [facility] CBC (HEMOGRAM ONLY) 2023-06-14 04:08:00 [facility] BASIC METABOLIC PANEL 2023-06-14 04:08:00 [facility] CRYPTOCOCCAL ANTIGEN 2023-06-13 17:21:00 Rossy [facility] HC LAB HIV-1 AG W/HIV-1&2 AB 2023-06-13 17:21:00 Rossy [facility] VENOUS DOPPLER ARM, LEFT 2023-06-13 17:20:00 Cara Burgess [facility] LEGIONELLA ANTIGEN, URINE 2023-06-13 17:00:00 [facility] SPUTUM CULTURE + GRAM STAIN 2023-06-13 14:33:00 [facility] MR LUMBAR SPINE WITH & WITHOUT IV CONTRAST 2023-06-13 13:03:47 Burt Nelson [facility] ECG 12-LEAD 2023-06-13 11:47:02 Arimike [facility] ECG 12-LEAD 2023-06-13 11:47:02 Unknown, [facility] ECG 12-LEAD 2023-06-13 11:47:02 Unknown, [facility] MRSA SCREEN 2023-06-13 09:19:00 [facility] CBC W/PLT COUNT & AUTO DIFFERENTIAL 2023-06-13 06:03:00 Cara Burgess [facility] COMPREHENSIVE METABOLIC PANEL 2023-06-13 06:03:00 Cara Burgess [facility] PROTHROMBIN TIME/INR 2023-06-13 06:03:00 DodieCara richardson [facility] CREATINE KINASE (CK) 2023-06-13 06:03:00 Abbi [facility] CBC W/PLT COUNT & AUTO DIFFERENTIAL 2023-06-13 06:03:00 [facility] BLOOD CULTURE 2023-06-13 06:02:00 Cara Burgess [facility] CBC W/PLT COUNT & AUTO DIFFERENTIAL 2023-06-02 04:41:00 [facility] 2023-06-02 04:41:00 Sunil Chu [facility] MAGNESIUM 2023-06-02 04:41:00 Sunil Chu [facility] PHOSPHORUS 2023-06-02 04:41:00 [facility] W/[facility] COUNT & AUTO DIFFERENTIAL 2023-06-02 04:41:00 Sunil [address] [facility] XR SPINE LUMBAR 1 VIEW 2023-06-01 10:31:00 Adam Garcia [facility] XR SPINE LUMBAR 1 VIEW 2023-06-01 09:46:00 [facility], LUMBAR 2023-06-01 09:10:00 Adam Garcia [facility] PROCEDURE W/ C-ARM 2023-06-01 09:10:00 Adam Garcia [facility] LAMINECTOMY, SPINE, LUMBAR 2023-06-01 07:30:00 Jose Adam [facility] PROCEDURE W/ C-ARM 2023-06-01 07:30:00 Adam Garcia [facility] SCREEN, URINE 2023-06-01 04:33:00 Jose [facility] BASIC METABOLIC PANEL 2023-05-31 22:55:00 Patricia [facility] CBC W/PLT COUNT & AUTO DIFFERENTIAL 2023-05-31 22:55:00 Patricia [facility] PT/APTT 2023-05-31 22:55:00 Patricia [facility] CBC W/PLT COUNT & AUTO DIFFERENTIAL 2023-05-31 22:55:00 Dallas Gomez [facility] CT NECK SOFT TISSUE WITHOUT IV CONTRAST 2023-05-31 09:39:[facility] TYPE AND SCREEN, AUTOMATED 2023-05-31 09:13:00 Omar [facility] BASIC METABOLIC PANEL 2023-05-29 06:43:00 [facility] CBC W/PLT COUNT & AUTO DIFFERENTIAL 2023-05-29 06:43:00 [facility] CBC W/PLT COUNT & AUTO DIFFERENTIAL 2023-05-29 06:43:00 [facility] XR SPINE CERVICAL 2 OR 3 VIEWS 2023-05-28 18:57:00 [facility] FL FLUORO NON-SPECIFIC UP TO 1 HOUR 2023-05-28 10:48:00 Adam Garcia [facility] FL FLUORO NON-SPECIFIC UP TO 1 HOUR 2023-05-28 10:07:00 Adam Garcia [facility] DISCECTOMY, SPINE, CERVICAL, ANTERIOR APPROACH, WITH FUSION 2023-05-28 08:15:00 Jose Adam [facility] INSERTION, HARDWARE, SPINAL 2023-05-28 08:15:00 Jose [facility] PROCEDURE, ALLOGRAFT, FOR SPINE SURGERY 2023-05-28 08:15:00 Jose [facility] AUTOGRAFT FOR SPINE SURGERY 2023-05-28 08:15:00 Jose [facility] PROCEDURE W/ C-ARM 2023-05-28 08:15:00 Cicero [facility] NEUROPHYSIOLOGIC MONITORING, INTRAOPERATIVE 2023-05-28 08:15:00 Jose [facility] PROCEDURE, USING OPERATING MICROSCOPE 2023-05-28 08:15:00 Cicero [facility] HCG, QUANTITATIVE, 2023-05-28 07:42:00 Yue Bui [facility] TYPE AND SCREEN, AUTOMATED 2023-05-28 07:42:00 Ketan Scruggs [facility] XR CHEST 1 VIEW PORTABLE / BEDSIDE 2023-04-01 15:32:16 Valerio [facility] B-TYPE NATRIURETIC FACTOR (BNP) 2023-04-01 13:32:00 Valerio [facility] ECHO W CONTRAST & DOPPLER 2023-03-31 20:18:37 Jasen [facility] MR CERVICAL SPINE WITHOUT IV CONTRAST 2023-03-31 09:25:00 Selin Lewis [facility] CBC (HEMOGRAM ONLY) 2023-03-31 03:45:00 Jasen [facility] COMPREHENSIVE METABOLIC PANEL 2023-03-31 03:45:00 Jasen [facility] ARTERIAL DOPPLER LEGS BILATERAL 2023-03-30 15:45:00 Jasen [facility] ARTERIAL (ALEISHA'S W/ DOPPLER) ONLY 2023-03-30 15:44:00 Zindani, [facility] ECG 12-LEAD 2023-03-30 13:06:22 Jasen [facility] ECG 12-LEAD 2023-03-30 13:06:22 Unknown, [facility] ECG 12-LEAD 2023-03-30 13:06:22 Unknown, [facility] MR THORACIC SPINE WITHOUT IV CONTRAST 2023-03-30 12:29:58 Eric [facility] MR LUMBAR SPINE WITHOUT IV CONTRAST 2023-03-30 11:58:00 Eric [facility] EEG AWAKE AND DROWSY 2023-03-30 09:57:[facility] T[facility] 2023-03-30 09:06:00 Berry [facility] URINALYSIS W/ REFLEX URINE CULTURE 2023-03-30 03:54:00 Eric [facility] CBC (HEMOGRAM ONLY) 2023-03-30 03:52:00 [facility] COMPREHENSIVE METABOLIC PANEL 2023-03-30 03:52:00 [facility] HEMOGLOBIN A1C 2023-03-30 03:52:00 [facility] PT/APTT 2023-03-30 03:52:00 Thomas Lozoya [facility] EKG-SCANNED 2023-03-29 00:00:00 Provider, Default Scanning [facility] CT HEAD WO CONTRAST 2022-12-11 18:36:49 Alfonso Alvarado [facility] URINE DRUG (IMMUNOASSAY) - COMPREHENSIVE DRUG SCREEN 2022-12-11 17:13:00 Alfonso Alvarado [facility] URINALYSIS 2022-12-11 17:13:00 Alfonso Alvarado [facility] CT CHEST PULMONARY ANGIOGRAM 2022-12-11 16:26:39 Alfonso Alvarado [facility] MAGNESIUM 2022-12-11 14:57:00 Alfonso Alvarado [facility] COMP. METABOLIC PANEL (00911) 2022-12-11 14:57:00 Alfonso Alvarado [facility] D-DIMER 2022-12-11 14:15:00 Alfonso Alvarado [facility] XR CHEST 1 VW 2022-12-11 14:10:26 Alfonso Alvarado [facility] TROPONIN I 2022-12-11 14:02:00 Alfonso Alvarado [facility] CBC WITH DIFF 2022-12-11 14:02:00 Alfonso Alvarado Lorelei [facility] N-TERMINAL PRO-BNP 2022-12-11 14:02:00 Alfonso Alvarado [facility] HB ECG ROUTINE & RHYTHM STRIP 2022-12-11 14:01:08 Alfonso Alvarado [facility] CONSENT/REFUSAL FOR DIAGNOSI S AND TREATMENT 2022-12-11 13:52:01 Doctor Unassigned, Marty [facility] ECG 12-LEAD 2022-08-03 05:03:32 Unknown, [facility] ECG 12-LEAD 2022-08-03 05:03:32 Unknown, [facility] LIPID PANEL 2022-08-02 21:14:00 [facility] TSH/FREE T4 IF INDICATED 2022-08-02 21:14:00 [facility] VITAMIN B12 2022-08-02 21:14:00 [facility] HEMOGLOBIN A1C 2022-08-02 21:14:00 [facility] COMPREHENSIVE METABOLIC PANEL 2022-08-02 21:14:00 [facility] CBC W/PLT COUNT & AUTO DIFFERENTIAL 2022-08-02 21:14:00 [facility] RPR 2022-08-02 21:14:00 [facility] HC LAB HIV-1 AG W/HIV-1&2 AB 2022-08-02 21:14:00 [facility] C-REACTIVE PROTEIN 2022-08-02 21:14:00 Donaldo Hightower [facility] CBC W/PLT COUNT & AUTO DIFFERENTIAL 2022-08-02 21:14:00 Donaldo Hightower [facility] EKG-SCANNED 2022-08-02 00:00:00 Provider, Default Scanning [facility] CT HEAD WO CONTRAST 2022-08-01 23:52:15 Lorenza Lowry [facility] GALV ONLY - INFLUENZA A B RS V PCR 2022-08-01 18:28:00 Letitia Chambers [facility] TRANSTHORACIC ECHO (TTE) COMPLETE W/ CONTRAST 2022-08-01 14:42:00 Kylee Montez [facility] MAGNESIUM 2022-08-01 10:42:00 [facility] (NA, K , CL, CO2, GLUCOSE, BUN, CREATININE, CA) 2022-08-01 10:42:00 Lorenza Lowry [facility] CBC WITH DIFF 2022-08-01 10:42:[address] [facility] N-TERMINAL PRO-BNP 2022-08-01 10:42:00 [facility] (AUTOMATED) 2022-08-01 06:56:00 [facility] 2022-07-31 22:31:36 Alcon [facility] URINALYSIS 2022-07-31 20:52:00 Alcon [facility] URINE DRUG (IMMUNOASSAY) - COMPREHENSIVE DRUG SCREEN W/O REFLEX 2022-07-31 20:52:00 Alcon [facility] XR CHEST 1 VW 2022-07-31 18:45:17 Alcon Sav [facility] LIPASE 2022-07-31 17:58:00 Alcon [facility] TROPONIN I 2022-07-31 17:58:00 Alcon [facility] COMP. METABOLIC PANEL ([id number]) 2022-07-31 17:58:00 [facility] 2022-07-31 17:58:00 [facility] / INR 2022-07-31 17:58:00 Sav Rondon [facility] ACTIVATED PARTIAL THRMPLAS DAVID 2022-07-31 17:58:00 Sav Rondon [facility] N-TERMINAL PRO-BNP 2022-07-31 17:58:00 Sav Rondon [facility] HB ECG ROUTINE & RHYTHM STRIP 2022-07-31 17:46:28 Sav Rondon [facility] NOTICE OF PRIVACY PRACTICES 2022-07-31 17:35:38 Doctor Unassigned, Marty [facility] CONSENT/REFUSAL FOR DIAGNOSI S AND TREATMENT 2022-07-31 17:35:13 Doctor Unassigned, Marty [facility] PHOSPHORUS 2022-05-08 05:51:00 Shefali [facility] MAGNESIUM 2022-05-08 05:51:00 Shefali [facility] BASIC METABOLIC PANEL (NA, K , CL, CO2, GLUCOSE, BUN, CREATININE, CA) 2022-05-08 05:51:00 Shefali [facility] CBC WITH DIFF 2022-05-08 05:51:00 Shefali [facility] BASIC METABOLIC PANEL (NA, K , CL, CO2, GLUCOSE, BUN, CREATININE, CA) 2022-05-07 07:09:00 John Cintron [facility] CBC WITH DIFF 2022-05-07 07:09:00 John Cintron [facility] POCT GLUCOSE (AUTOMATED) 2022-05-07 01:16:00 Brandyn Ibrahim [facility] HB ABO GROUPING 2022-05-06 05:07:00 Ismael Dunn [facility] BASIC METABOLIC PANEL (NA, K , CL, CO2, GLUCOSE, BUN, CREATININE, CA) 2022-05-06 05:04:00 Shefali [facility] CBC WITH DIFF 2022-05-06 05:04:00 Shefali [facility] KEPPRA (LEVETIRACETAM) 2022-05-06 05:04:00 D'Tirado, [facility] MR LUMBAR SPINE WO CONTRAST 2022-05-06 02:54:37 Ender Monet [facility] ELECTROENCEPHALOGRAM 2022-05-06 00:00:00 John Cintron [facility] BASIC METABOLIC PANEL (NA, K , CL, CO2, GLUCOSE, BUN, CREATININE, CA) 2022-05-05 07:57:00 [facility] 2022-05-05 07:57:00 Ismael Dunn [facility] PROTHROMBIN TIME / INR 2022-05-05 07:57:00 Ismael Dunn [facility] ACTIVATED PARTIAL THRMPLAS DAVID 2022-05-05 07:57:00 [facility] FIBRIN[facility]EN 2022-05-05 07:57:00 Shaun Uatsdin [facility] EMERGENCY SERVICES AGREEMENT S AND AUTHORIZATIONS 2022-05-04 05:01:00 Doctor Unassigned, Marty [facility] VITAMIN D, 25-OH 2022-04-15 16:53:00 Sen [place] [facility] MR THORACIC SPINE WO CONTRAST 2022-04-15 11:56:19 Harshil [facility] MR CERVICAL SPINE WO CONTRAST 2022-04-15 11:20:00 Harshil [facility] BASIC METABOLIC PANEL (NA, K , CL, CO2, GLUCOSE, BUN, CREATININE, CA) 2022-04-15 10:36:00 Charmaine Morataya [facility] TEST, URINE 2022-04-15 04:39:00 Harshil [facility] URINE DRUG (IMMUNOASSAY) - COMPREHENSIVE DRUG SCREEN 2022-04-15 04:39:00 Harshil [facility] URINALYSIS 2022-04-15 04:39:00 Harshil [facility] TRANSTHORACIC ECHO (TTE) COMPLETE W/ CONTRAST 2022-04-14 16:37:03 Harshil [facility] KEPPRA (LEVETIRACETAM) 2022-04-14 15:30:00 Harshil Soumya [facility] MAGNESIUM 2022-04-14 10:03:00 Harshil [facility] BASIC METABOLIC PANEL (NA, K , CL, CO2, GLUCOSE, BUN, CREATININE, CA) 2022-04-14 10:03:00 Harshil [facility] MR LUMBAR SPINE WO CONTRAST 2022-04-14 02:48:12 Harshil [facility] MR STROKE BRAIN WO CONTRAST 2022-04-14 02:29:00 Harshil [facility] CT STROKE ANGIOGRAM HEAD 2022-04-13 18:40:00 Sapna Vargas [facility] CT STROKE ANGIOGRAM NECK 2022-04-13 18:40:00 Sapna Vargas [facility] CT STROKE HEAD WO CONTRAST 2022-04-13 18:36:00 Sapna Vargas [facility] TROPONIN I 2022-04-13 18:17:00 Sapna Vargas [facility] THYROID STIMULATING HORMONE 2022-04-13 18:17:00 Harshil [facility] BASIC METABOLIC PANEL (NA, K , CL, CO2, GLUCOSE, BUN, CREATININE, CA) 2022-04-13 18:17:00 Sapna Vargas [facility] LIPID PANEL ([id number])(TOTAL CHOLESTEROL, TRIGLYCERIDES, HDL) 2022-04-13 18:17:00 Harshil [facility] CBC WITHOUT DIFF 2022-04-13 18:17:00 Sanpa Vargas [facility] GLYCOSYLATED HEMOGLOBIN (A1C) 2022-04-13 18:17:00 Harshil [facility] PROTHROMBIN TIME / INR 2022-04-13 18:17:00 Spana Vargas [facility] ACTIVATED PARTIAL THRMPLAS DAVID 2022-04-13 18:17:00 Sapna Vargas [facility] COVID-19 (ID NOW RAPID TESTING) 2022-04-13 18:17:00 Sapna Vargas [facility] LAB ONLY COVID INTERPRETATION 2022-04-13 18:17:00 Sapna Vargas [facility] HB ECG ROUTINE & RHYTHM STRIP 2022-04-13 18:15:49 Sapna Vargas [facility] CONSENT/REFUSAL FOR DIAGNOSI S AND TREATMENT 2022-04-13 18:05:14 Doctor Unassigned, Marty [facility] HOSPITAL ADMISSION 2022-04-13 05:01:00 Doctor Unassigned, Marty [facility] SARS-COV-2 COVID-19 VACCINE 12 YRS+,0.3ML,IM (PFIZER - [facility]) 2022-02-19 15:21:12 Doctor Unassigned, Marty [facility] URINE DRUG (IMMUNOASSAY) - COMPREHENSIVE DRUG SCREEN W/O REFLEX 2021-11-23 21:21:00 Nichelle Virk [facility] CT HEAD WO CONTRAST 2021-11-23 20:58:00 Nichelle Virk [facility] POCT TEST 2021-11-23 20:46:00 Nichelle Virk [facility] URINALYSIS 2021-11-23 20:43:00 Nichelle Virk [facility] LIPASE 2021-11-23 20:27:00 Nichelle Virk [facility] TROPONIN I 2021-11-23 20:27:00 Nichelle Virk [facility] COMP. METABOLIC PANEL ([id number]) 2021-11-23 20:27:00 Nichelle Virk [facility] CBC WITH DIFF 2021-11-23 20:27:00 Nichelle Virk [facility] POCT GLUCOSE (AUTOMATED) 2021-11-23 20:15:00 Doctor Unassigned, Marty [facility] SARS-COV-2 COVID-19 VACCINE,0.3ML,IM (PFIZER) 2021-05-24 14:23:12 Doctor Unassigned, Marty [facility] SARS-COV-2 COVID-19 VACCINE,0.3ML,IM (PFIZER) 2021-05-03 14:59:29 Doctor Unassigned, Marty [facility] EMERGENCY SERVICES AGREEMENT S AND AUTHORIZATIONS 2021-04-16 05:01:00 Doctor Unassigned, Marty [facility] URINALYSIS 2021-03-17 03:09:00 Fabrice Chakraborty [facility] XR CHEST 1 VW 2021-03-17 01:45:07 Fabrice Chakraborty [facility] TROPONIN I 2021-03-17 01:35:00 Fabrice Chakraborty [facility] COMP. METABOLIC PANEL ([id number]) 2021-03-17 01:35:00 Fabrice Chakraborty [facility] CBC WITH DIFF 2021-03-17 01:35:00 [facility] N-TERMINAL PRO-BNP 2021-03-17 01:35:00 [facility] COVID-19 (ID NOW RAPID TESTING) 2021-03-17 00:58:00 Brian Bryan [facility] CONSENT/REFUSAL FOR DIAGNOSI S AND TREATMENT 2021-03-17 00:32:59 Doctor Unassigned, Marty [facility] COVID-19 (ID NOW RAPID TESTING) 2021-02-19 17:04:00 Anali Monroy [facility] CT ABDOMEN PELVIS W CONTRAST 2021-02-19 16:41:18 Anali Monroy [facility] LIPASE 2021-02-19 15:58:00 Anali Monroy [facility] COMP. METABOLIC PANEL ([id number]) 2021-02-19 15:58:00 Anali Monroy [facility] CBC WITH DIFF 2021-02-19 15:58:00 Anali Monroy [facility] URINALYSIS 2021-02-19 15:58:00 Anali Monroy [facility] NOTICE OF PRIVACY PRACTICES 2021-02-19 15:30:46 Doctor Unassigned, Marty [facility] CONSENT/REFUSAL FOR DIAGNOSI S AND TREATMENT 2021-02-19 15:30:30 Doctor Unassigned, Marty [facility] Plan of Care Planned Activity Planned Date Details Comments Source Future Scheduled Test 2025-08-02 00:00:00 Lipid panel (procedure) [code = 94730940] [facility] Future Scheduled Test 2025-08-02 00:00:00 Lipid panel (procedure) [code = [id number]] [facility] Future Scheduled Test 2025-08-02 00:00:00 Lipid panel (procedure) [code = 49103275] [facility] Future Scheduled Test 2025-08-02 00:00:00 Lipid panel (procedure) [code = [id number]] [facility] Future Scheduled Test 2025-08-02 00:00:00 Lipid panel (procedure) [code = [id number]] [facility] Future Scheduled Test 2025-08-02 00:00:00 Lipid panel (procedure) [code = [id number]] [facility] Future Scheduled Test 2025-08-02 00:00:00 Lipid panel (procedure) [code = [id number]] [facility] Future Scheduled Test 2025-08-02 00:00:00 Lipid panel (procedure) [code = [id number]] [facility] Future Scheduled Test 2025-08-02 00:00:00 Lipid panel (procedure) [code = [id number]] [facility] Future Scheduled Test 2025-08-02 00:00:00 Lipid panel (procedure) [code = 47495010] [facility] Future Scheduled Test 2025-08-02 00:00:00 Lipid panel (procedure) [code = 27709350] [facility] Future Scheduled Test 2025-08-02 00:00:00 Lipid panel (procedure) [code = [id number]] [facility] Future Scheduled Test 2025-08-02 00:00:00 Lipid panel (procedure) [code = [id number]] [facility] Future Scheduled Test 2025-08-02 00:00:00 Lipid panel (procedure) [code = 49705011] [facility] Future Scheduled Test 2025-08-02 00:00:00 Lipid panel (procedure) [code = 36511092] [facility] Future Scheduled Test 2025-08-02 00:00:00 Lipid panel (procedure) [code = 20204192] [facility] Future Scheduled Test 2025-08-02 00:00:00 Lipid panel (procedure) [code = 41409107] [facility] Future Scheduled Test 2025-08-02 00:00:00 Lipid panel (procedure) [code = 05425175] [facility] Future Scheduled Test 2025-08-02 00:00:00 Lipid panel (procedure) [code = 24431615] [facility] Future Scheduled Test 2025-08-02 00:00:00 Lipid panel (procedure) [code = 02929602] [facility] Future Scheduled Test 2025-08-02 00:00:00 Lipid panel (procedure) [code = 28314500] [facility] Future Scheduled Test 2025-08-02 00:00:00 Lipid panel (procedure) [code = 20096035] [facility] Future Scheduled Test 2025-08-02 00:00:00 Lipid panel (procedure) [code = 04126980] [facility] Future Scheduled Test 2025-08-02 00:00:00 Lipid panel (procedure) [code = 51387102] [facility] Future Scheduled Test 2025-08-02 00:00:00 Lipid panel (procedure) [code = 62251771] [facility] Future Scheduled Test 2025-08-02 00:00:00 Lipid panel (procedure) [code = 19511104] [facility] Future Scheduled Test 2025-08-02 00:00:00 Lipid panel (procedure) [code = 69736621] [facility] Future Scheduled Test 2025-08-02 00:00:00 Lipid panel (procedure) [code = 17579823] [facility] Future Scheduled Test 2025-08-02 00:00:00 Lipid panel (procedure) [code = 49225795] [facility] Future Scheduled Test 2025-08-02 00:00:00 Lipid panel (procedure) [code = 54330616] [facility] Future Scheduled Test 2025-08-02 00:00:00 Lipid panel (procedure) [code = 47185940] [facility] Future Scheduled Test 2025-08-02 00:00:00 Lipid panel (procedure) [code = 64388789] [facility] Future Scheduled Test 2025-08-02 00:00:00 Lipid panel (procedure) [code = 89346908] [facility] Future Scheduled Test 2025-08-02 00:00:00 Lipid panel (procedure) [code = 48009579] [facility] Future Scheduled Test 2025-08-02 00:00:00 Lipid panel (procedure) [code = 33053480] [facility] Future Scheduled Test 2025-08-02 00:00:00 Lipid panel (procedure) [code = 30238879] [facility] Future Scheduled Test 2025-08-02 00:00:00 Lipid panel (procedure) [code = 73417181] [facility] Future Scheduled Test 2025-08-02 00:00:00 Lipid panel (procedure) [code = 82912270] [facility] Future Scheduled Test 2025-08-02 00:00:00 Lipid panel (procedure) [code = 73213530] [facility] Future Scheduled Test 2025-08-02 00:00:00 Lipid panel (procedure) [code = 84532515] [facility] Future Scheduled Test 2025-08-02 00:00:00 Lipid panel (procedure) [code = 22436027] [facility] Future Scheduled Test 2025-08-02 00:00:00 Lipid panel (procedure) [code = 85690953] [facility] Future Scheduled Test 2025-08-02 00:00:00 Lipid panel (procedure) [code = 89596525] [facility] Future Scheduled Test 2025-08-02 00:00:00 Lipid panel (procedure) [code = 75020367] [facility] Future Scheduled Test 2025-08-02 00:00:00 Lipid panel (procedure) [code = 77434150] [facility] Future Scheduled Test 2025-08-02 00:00:00 Lipid panel (procedure) [code = 70915742] [facility] Future Scheduled Test 2025-08-02 00:00:00 Lipid panel (procedure) [code = 48226781] [facility] Future Scheduled Test 2025-08-02 00:00:00 Lipid panel (procedure) [code = 81023304] [facility] Future Scheduled Test 2025-08-02 00:00:00 Lipid panel (procedure) [code = 42816384] [facility] Future Scheduled Test 2025-08-02 00:00:00 Lipid panel (procedure) [code = 64411283] [facility] Future Scheduled Test 2025-08-02 00:00:00 Lipid panel (procedure) [code = 19646343] [facility] Future Scheduled Test 2025-08-02 00:00:00 Lipid panel (procedure) [code = 64302381] [facility] Future Scheduled Test 2025-08-02 00:00:00 Lipid panel (procedure) [code = 56119543] [facility] Future Scheduled Test 2025-08-02 00:00:00 Lipid panel (procedure) [code = 01062762] [facility] Scheduled Test 2024-05-28 00:00:00 Tobacco Cessation Counseling and Screening (12+) [code = Tobacco Cessation Counseling and Screening (12+)] [facility] Scheduled Test 2024-05-28 00:00:00 Tobacco Cessation Counseling and Screening (12+) [code = Tobacco Cessation Counseling and Screening (12+)] [facility] Scheduled Test 2024-05-28 00:00:00 Tobacco Cessation Counseling and Screening (12+) [code = Tobacco Cessation Counseling and Screening (12+)] [facility] Scheduled Test 2024-05-28 00:00:00 Tobacco Cessation Counseling and Screening (12+) [code = Tobacco Cessation Counseling and Screening (12+)] [facility] Future Scheduled Test 2024-05-28 00:00:00 Tobacco Cessation Counseling and Screening (12+) [code = Tobacco Cessation Counseling and Screening (12+)] [facility] Scheduled Test 2024-05-28 00:00:00 Tobacco Cessation Counseling and Screening (12+) [code = Tobacco Cessation Counseling and Screening (12+)] [facility] Scheduled Test 2024-05-28 00:00:00 Tobacco Cessation Counseling and Screening (12+) [code = Tobacco Cessation Counseling and Screening (12+)] [facility] Future Scheduled Test 2024-05-28 00:00:00 Tobacco Cessation Counseling and Screening (12+) [code = Tobacco Cessation Counseling and Screening (12+)] [facility] Future Scheduled Test 2024-05-28 00:00:00 Tobacco Cessation Counseling and Screening (12+) [code = Tobacco Cessation Counseling and Screening (12+)] [facility] Scheduled Test 2024-05-28 00:00:00 Tobacco Cessation Counseling and Screening (12+) [code = Tobacco Cessation Counseling and Screening (12+)] [facility] Scheduled Test 2024-05-28 00:00:00 Tobacco Cessation Counseling and Screening (12+) [code = Tobacco Cessation Counseling and Screening (12+)] [facility] Scheduled Test 2024-05-28 00:00:00 Tobacco Cessation Counseling and Screening (12+) [code = Tobacco Cessation Counseling and Screening (12+)] [facility] Scheduled Test 2024-05-28 00:00:00 Tobacco Cessation Counseling and Screening (12+) [code = Tobacco Cessation Counseling and Screening (12+)] [facility] Scheduled Test 2024-05-28 00:00:00 Tobacco Cessation Counseling and Screening (12+) [code = Tobacco Cessation Counseling and Screening (12+)] [facility] Scheduled Test 2024-05-28 00:00:00 Tobacco Cessation Counseling and Screening (12+) [code = Tobacco Cessation Counseling and Screening (12+)] [facility] Scheduled Test 2024-05-28 00:00:00 Tobacco Cessation Counseling and Screening (12+) [code = Tobacco Cessation Counseling and Screening (12+)] [facility] Scheduled Test 2024-05-28 00:00:00 Tobacco Cessation Counseling and Screening (12+) [code = Tobacco Cessation Counseling and Screening (12+)] [facility] Scheduled Test 2024-05-28 00:00:00 Tobacco Cessation Counseling and Screening (12+) [code = Tobacco Cessation Counseling and Screening (12+)] [facility] Scheduled Test 2024-05-28 00:00:00 Tobacco Cessation Counseling and Screening (12+) [code = Tobacco Cessation Counseling and Screening (12+)] [facility] Scheduled Test 2024-05-28 00:00:00 Tobacco Cessation Counseling and Screening (12+) [code = Tobacco Cessation Counseling and Screening (12+)] [facility] Future Scheduled Test 2024-05-28 00:00:00 Tobacco Cessation Counseling and Screening (12+) [code = Tobacco Cessation Counseling and Screening (12+)] [facility] Scheduled Test 2024-05-28 00:00:00 Tobacco Cessation Counseling and Screening (12+) [code = Tobacco Cessation Counseling and Screening (12+)] [facility] Scheduled Test 2024-05-28 00:00:00 Tobacco Cessation Counseling and Screening (12+) [code = Tobacco Cessation Counseling and Screening (12+)] [facility] Scheduled Test 2024-05-28 00:00:00 Tobacco Cessation Counseling and Screening (12+) [code = Tobacco Cessation Counseling and Screening (12+)] [facility] Scheduled Test 2024-05-28 00:00:00 Tobacco Cessation Counseling and Screening (12+) [code = Tobacco Cessation Counseling and Screening (12+)] [facility] Scheduled Test 2024-05-28 00:00:00 Tobacco Cessation Counseling and Screening (12+) [code = Tobacco Cessation Counseling and Screening (12+)] [facility] Scheduled Test 2024-05-28 00:00:00 Tobacco Cessation Counseling and Screening (12+) [code = Tobacco Cessation Counseling and Screening (12+)] [facility] Scheduled Test 2024-05-28 00:00:00 Tobacco Cessation Counseling and Screening (12+) [code = Tobacco Cessation Counseling and Screening (12+)] [facility] Future Scheduled Test 2024-05-28 00:00:00 Tobacco Cessation Counseling and Screening (12+) [code = Tobacco Cessation Counseling and Screening (12+)] [facility] Scheduled Test 2024-05-26 00:00:00 Tobacco Cessation Counseling and Screening (12+) [code = Tobacco Cessation Counseling and Screening (12+)] [facility] Scheduled Test 2024-05-26 00:00:00 Tobacco Cessation Counseling and Screening (12+) [code = Tobacco Cessation Counseling and Screening (12+)] [facility] Scheduled Test 2023-07-20 00:00:00 DEPRESSION SCREENING (12+) [code = DEPRESSION SCREENING (12+)] [facility] Future Scheduled Test 2023-07-20 00:00:00 DEPRESSION SCREENING (12+) [code = DEPRESSION SCREENING (12+)] [facility] Future Scheduled Test 2023-07-20 00:00:00 DEPRESSION SCREENING (12+) [code = DEPRESSION SCREENING (12+)] [facility] Future Scheduled Test 2023-07-20 00:00:00 DEPRESSION SCREENING (12+) [code = DEPRESSION SCREENING (12+)] [facility] Future Scheduled Test 2023-07-20 00:00:00 DEPRESSION SCREENING (12+) [code = DEPRESSION SCREENING (12+)] [facility] Future Scheduled Test 2023-07-20 00:00:00 DEPRESSION SCREENING (12+) [code = DEPRESSION SCREENING (12+)] [facility] Future Scheduled Test 2023-07-20 00:00:00 DEPRESSION SCREENING (12+) [code = DEPRESSION SCREENING (12+)] [facility] Future Scheduled Test 2023-07-20 00:00:00 DEPRESSION SCREENING (12+) [code = DEPRESSION SCREENING (12+)] [facility] Future Scheduled Test 2023-07-20 00:00:00 DEPRESSION SCREENING (12+) [code = DEPRESSION SCREENING (12+)] [facility] Future Scheduled Test 2023-07-20 00:00:00 DEPRESSION SCREENING (12+) [code = DEPRESSION SCREENING (12+)] [facility] Future Scheduled Test 2023-07-20 00:00:00 DEPRESSION SCREENING (12+) [code = DEPRESSION SCREENING (12+)] [facility] Future Scheduled Test 2023-07-20 00:00:00 DEPRESSION SCREENING (12+) [code = DEPRESSION SCREENING (12+)] [facility] Future Scheduled Test 2023-07-20 00:00:00 DEPRESSION SCREENING (12+) [code = DEPRESSION SCREENING (12+)] [facility] Future Scheduled Test 2023-07-20 00:00:00 DEPRESSION SCREENING (12+) [code = DEPRESSION SCREENING (12+)] [facility] Future Scheduled Test 2023-07-20 00:00:00 DEPRESSION SCREENING (12+) [code = DEPRESSION SCREENING (12+)] [facility] Future Scheduled Test 2023-07-20 00:00:00 DEPRESSION SCREENING (12+) [code = DEPRESSION SCREENING (12+)] [facility] Future Scheduled Test 2023-07-20 00:00:00 DEPRESSION SCREENING (12+) [code = DEPRESSION SCREENING (12+)] [facility] Future Scheduled Test 2023-07-20 00:00:00 DEPRESSION SCREENING (12+) [code = DEPRESSION SCREENING (12+)] [facility] Future Scheduled Test 2023-07-20 00:00:00 DEPRESSION SCREENING (12+) [code = DEPRESSION SCREENING (12+)] [facility] Future Scheduled Test 2023-07-20 00:00:00 DEPRESSION SCREENING (12+) [code = DEPRESSION SCREENING (12+)] [facility] Future Scheduled Test 2023-07-20 00:00:00 DEPRESSION SCREENING (12+) [code = DEPRESSION SCREENING (12+)] [facility] Future Scheduled Test 2023-03-20 00:00:00 INFLUENZA VACCINE (Season Ended) [code = INFLUENZA VACCINE (Season Ended)] [facility] Future Scheduled Test 2023-03-20 00:00:00 INFLUENZA VACCINE (Season Ended) [code = INFLUENZA VACCINE (Season Ended)] [facility] Future Scheduled Test 2023-03-20 00:00:00 INFLUENZA VACCINE (Season Ended) [code = INFLUENZA VACCINE (Season Ended)] [facility] Future Scheduled Test 2023-03-20 00:00:00 INFLUENZA VACCINE (Season Ended) [code = INFLUENZA VACCINE (Season Ended)] [facility] Future Scheduled Test 2023-03-20 00:00:00 INFLUENZA VACCINE (Season Ended) [code = INFLUENZA VACCINE (Season Ended)] [facility] Future Scheduled Test 2023-03-20 00:00:00 INFLUENZA VACCINE (Season Ended) [code = INFLUENZA VACCINE (Season Ended)] [facility] Future Scheduled Test 2023-03-20 00:00:00 Influenza Vaccine (Season Ended) [code = Influenza Vaccine (Season Ended)] [facility] Future Scheduled Test 2023-03-20 00:00:00 Influenza Vaccine (Season Ended) [code = Influenza Vaccine (Season Ended)] [facility] Future Scheduled Test 2023-03-20 00:00:00 Influenza Vaccine (#1) [code = Influenza Vaccine (#1)] [facility] Future Scheduled Test 2023-03-20 00:00:00 Influenza Vaccine (#1) [code = Influenza Vaccine (#1)] [facility] Future Scheduled Test 2023-03-20 00:00:00 Influenza Vaccine (#1) [code = Influenza Vaccine (#1)] [facility] Future Scheduled Test 2023-03-20 00:00:00 Influenza Vaccine (#1) [code = Influenza Vaccine (#1)] [facility] Future Scheduled Test 2023-03-20 00:00:00 COVID-19 VACCINE ( season) [code = COVID-19 VACCINE ()] [facility] Future Scheduled Test 2023-03-20 00:00:00 Influenza Vaccine (#1) [code = Influenza Vaccine (#1)] [facility] Future Scheduled Test 2023-03-20 00:00:00 COVID-19 VACCINE ( season) [code = COVID-19 VACCINE ( season)] [facility] Future Scheduled Test 2023-03-20 00:00:00 Influenza Vaccine (#1) [code = Influenza Vaccine (#1)] [facility] Future Scheduled Test 2023-03-20 00:00:00 COVID-19 VACCINE ( season) [code = COVID-19 VACCINE ( season)] [facility] Future Scheduled Test 2023-03-20 00:00:00 Influenza Vaccine (#1) [code = Influenza Vaccine (#1)] [facility] Future Scheduled Test 2023-03-20 00:00:00 COVID-19 VACCINE ( season) [code = COVID-19 VACCINE ( season)] [facility] Future Scheduled Test 2023-03-20 00:00:00 Influenza Vaccine (#1) [code = Influenza Vaccine (#1)] [facility] Future Scheduled Test 2023-03-20 00:00:00 Influenza Vaccine (#1) [code = Influenza Vaccine (#1)] [facility] Future Scheduled Test 2023-03-20 00:00:00 COVID-19 VACCINE ( season) [code = COVID-19 VACCINE ()] [facility] Future Scheduled Test 2023-03-20 00:00:00 Influenza Vaccine (#1) [code = Influenza Vaccine (#1)] [facility] Future Scheduled Test 2023-03-20 00:00:00 COVID-19 VACCINE ( season) [code = COVID-19 VACCINE ()] [facility] Future Scheduled Test 2023-03-20 00:00:00 Influenza Vaccine (#1) [code = Influenza Vaccine (#1)] [facility] Future Scheduled Test 2023-03-20 00:00:00 COVID-19 VACCINE ( season) [code = COVID-19 VACCINE ()] [facility] Future Scheduled Test 2023-03-20 00:00:00 Influenza Vaccine (#1) [code = Influenza Vaccine (#1)] [facility] Future Scheduled Test 2023-03-20 00:00:00 COVID-19 VACCINE ( season) [code = COVID-19 VACCINE ()] [facility] Future Scheduled Test 2023-03-20 00:00:00 Influenza Vaccine (#1) [code = Influenza Vaccine (#1)] [facility] Future Scheduled Test 2023-03-20 00:00:00 COVID-19 VACCINE ( season) [code = COVID-19 VACCINE ( season)] [facility] Future Scheduled Test 2023-03-20 00:00:00 Influenza Vaccine (#1) [code = Influenza Vaccine (#1)] [facility] Future Scheduled Test 2023-03-20 00:00:00 COVID-19 VACCINE ( season) [code = COVID-19 VACCINE ()] [facility] Future Scheduled Test 2023-03-20 00:00:00 Influenza Vaccine (#1) [code = Influenza Vaccine (#1)] [facility] Future Scheduled Test 2023-03-20 00:00:00 COVID-19 VACCINE ( season) [code = COVID-19 VACCINE ()] [facility] Future Scheduled Test 2023-03-20 00:00:00 Influenza Vaccine (#1) [code = Influenza Vaccine (#1)] [facility] Future Scheduled Test 2023-03-20 00:00:00 Influenza Vaccine (#1) [code = Influenza Vaccine (#1)] [facility] Future Scheduled Test 2023-03-20 00:00:00 COVID-19 VACCINE ( season) [code = COVID-19 VACCINE ()] [facility] Future Scheduled Test 2023-03-20 00:00:00 Influenza Vaccine (#1) [code = Influenza Vaccine (#1)] [facility] Future Scheduled Test 2023-03-20 00:00:00 COVID-19 VACCINE ( season) [code = COVID-19 VACCINE ()] [facility] Future Scheduled Test 2023-03-20 00:00:00 Influenza Vaccine (#1) [code = Influenza Vaccine (#1)] [facility] Future Scheduled Test 2023-03-20 00:00:00 COVID-19 VACCINE ( season) [code = COVID-19 VACCINE ()] [facility] Future Scheduled Test 2023-03-20 00:00:00 Influenza Vaccine (#1) [code = Influenza Vaccine (#1)] [facility] Future Scheduled Test 2023-03-20 00:00:00 COVID-19 VACCINE ( season) [code = COVID-19 VACCINE ( season)] [facility] Future Scheduled Test 2023-03-20 00:00:00 Influenza Vaccine (#1) [code = Influenza Vaccine (#1)] [facility] Future Scheduled Test 2023-03-20 00:00:00 COVID-19 VACCINE ( season) [code = COVID-19 VACCINE ()] [facility] Future Scheduled Test 2023-03-20 00:00:00 Influenza Vaccine (#1) [code = Influenza Vaccine (#1)] [facility] Future Scheduled Test 2023-03-20 00:00:00 COVID-19 VACCINE ( season) [code = COVID-19 VACCINE ()] [facility] Scheduled Test 2023-03-20 00:00:00 Influenza Vaccine (#1) [code = Influenza Vaccine (#1)] [facility] Future Scheduled Test 2023-03-20 00:00:00 Influenza Vaccine (#1) [code = Influenza Vaccine (#1)] [facility] Future Scheduled Test 2023-03-20 00:00:00 COVID-19 VACCINE ( season) [code = COVID-19 VACCINE ()] [facility] Scheduled Test 2023-03-20 00:00:00 Influenza Vaccine (#1) [code = Influenza Vaccine (#1)] [facility] Scheduled Test 2023-03-20 00:00:00 COVID-19 VACCINE ( season) [code = COVID-19 VACCINE ()] [facility] Scheduled Test 2023-03-20 00:00:00 Influenza Vaccine (#1) [code = Influenza Vaccine (#1)] [facility] Future Scheduled Test 2023-03-20 00:00:00 COVID-19 VACCINE () [code = COVID-19 VACCINE ()] [facility] Scheduled Test 2023-03-20 00:00:00 Influenza Vaccine (#1) [code = Influenza Vaccine (#1)] [facility] Future Scheduled Test 2023-03-20 00:00:00 COVID-19 VACCINE ( season) [code = COVID-19 VACCINE ( season)] [facility] Scheduled Test 2023-03-20 00:00:00 Influenza Vaccine (#1) [code = Influenza Vaccine (#1)] [facility] Future Scheduled Test 2023-03-20 00:00:00 Influenza Vaccine (#1) [code = Influenza Vaccine (#1)] [facility] Future Scheduled Test 2023-03-20 00:00:00 COVID-19 VACCINE ( season) [code = COVID-19 VACCINE ( season)] [facility] Scheduled Test 2023-03-20 00:00:00 Influenza Vaccine (#1) [code = Influenza Vaccine (#1)] [facility] Future Scheduled Test 2023-03-20 00:00:00 Influenza Vaccine (#1) [code = Influenza Vaccine (#1)] [facility] Future Scheduled Test 2023-03-20 00:00:00 Influenza Vaccine (#1) [code = Influenza Vaccine (#1)] [facility] Future Scheduled Test 2023-03-20 00:00:00 Influenza Vaccine (#1) [code = Influenza Vaccine (#1)] [facility] Future Scheduled Test 2023-03-20 00:00:00 Influenza Vaccine (#1) [code = Influenza Vaccine (#1)] [facility] Future Scheduled Test 2023-03-20 00:00:00 Influenza Vaccine (#1) [code = Influenza Vaccine (#1)] [facility] Future Scheduled Test 2023-03-20 00:00:00 Influenza Vaccine (#1) [code = Influenza Vaccine (#1)] [facility] Future Scheduled Test 2023-03-20 00:00:00 Influenza Vaccine (#1) [code = Influenza Vaccine (#1)] [facility] Future Scheduled Test 2023-03-20 00:00:00 Influenza Vaccine (#1) [code = Influenza Vaccine (#1)] [facility] Future Scheduled Test 2023-03-20 00:00:00 Influenza Vaccine (#1) [code = Influenza Vaccine (#1)] [facility] Future Scheduled Test 2023-03-20 00:00:00 Influenza Vaccine (#1) [code = Influenza Vaccine (#1)] [facility] Future Scheduled Test 2023-03-20 00:00:00 Influenza Vaccine (#1) [code = Influenza Vaccine (#1)] [facility] Future Scheduled Test 2023-03-20 00:00:00 COVID-19 VACCINE ( season) [code = COVID-19 VACCINE ()] [facility] Future Scheduled Test 2023-03-20 00:00:00 COVID-19 VACCINE ( season) [code = COVID-19 VACCINE ()] [facility] Future Scheduled Test 2023-03-20 00:00:00 Influenza Vaccine (#1) [code = Influenza Vaccine (#1)] [facility] Future Scheduled Test 2022-07-20 00:00:00 DEPRESSION SCREENING (12+) [code = DEPRESSION SCREENING (12+)] [facility] Future Scheduled Test 2022-07-20 00:00:00 DEPRESSION SCREENING (12+) [code = DEPRESSION SCREENING (12+)] [facility] Future Scheduled Test 2022-07-20 00:00:00 DEPRESSION SCREENING (12+) [code = DEPRESSION SCREENING (12+)] [facility] Future Scheduled Test 2022-07-20 00:00:00 DEPRESSION SCREENING (12+) [code = DEPRESSION SCREENING (12+)] [facility] Future Scheduled Test 2022-07-20 00:00:00 DEPRESSION SCREENING (12+) [code = DEPRESSION SCREENING (12+)] [facility] Future Scheduled Test 2022-07-20 00:00:00 DEPRESSION SCREENING (12+) [code = DEPRESSION SCREENING (12+)] [facility] Future Scheduled Test 2022-07-20 00:00:00 DEPRESSION SCREENING (12+) [code = DEPRESSION SCREENING (12+)] [facility] Future Scheduled Test 2022-07-20 00:00:00 DEPRESSION SCREENING (12+) [code = DEPRESSION SCREENING (12+)] [facility] Future Scheduled Test 2022-07-20 00:00:00 DEPRESSION SCREENING (12+) [code = DEPRESSION SCREENING (12+)] [facility] Future Scheduled Test 2022-07-20 00:00:00 DEPRESSION SCREENING (12+) [code = DEPRESSION SCREENING (12+)] [facility] Future Scheduled Test 2022-07-20 00:00:00 DEPRESSION SCREENING (12+) [code = DEPRESSION SCREENING (12+)] [facility] Future Scheduled Test 2022-07-20 00:00:00 DEPRESSION SCREENING (12+) [code = DEPRESSION SCREENING (12+)] [facility] Future Scheduled Test 2022-07-20 00:00:00 DEPRESSION SCREENING (12+) [code = DEPRESSION SCREENING (12+)] [facility] Future Scheduled Test 2022-07-20 00:00:00 DEPRESSION SCREENING (12+) [code = DEPRESSION SCREENING (12+)] [facility] Future Scheduled Test 2022-07-20 00:00:00 DEPRESSION SCREENING (12+) [code = DEPRESSION SCREENING (12+)] [facility] Future Scheduled Test 2022-07-20 00:00:00 DEPRESSION SCREENING (12+) [code = DEPRESSION SCREENING (12+)] [facility] Future Scheduled Test 2022-07-20 00:00:00 DEPRESSION SCREENING (12+) [code = DEPRESSION SCREENING (12+)] [facility] Future Scheduled Test 2022-07-20 00:00:00 DEPRESSION SCREENING (12+) [code = DEPRESSION SCREENING (12+)] [facility] Future Scheduled Test 2022-07-20 00:00:00 DEPRESSION SCREENING (12+) [code = DEPRESSION SCREENING (12+)] [facility] Future Scheduled Test 2022-07-20 00:00:00 DEPRESSION SCREENING (12+) [code = DEPRESSION SCREENING (12+)] [facility] Future Scheduled Test 2022-07-20 00:00:00 DEPRESSION SCREENING (12+) [code = DEPRESSION SCREENING (12+)] [facility] Future Scheduled Test 2022-07-20 00:00:00 DEPRESSION SCREENING (12+) [code = DEPRESSION SCREENING (12+)] [facility] Future Scheduled Test 2022-07-20 00:00:00 DEPRESSION SCREENING (12+) [code = DEPRESSION SCREENING (12+)] [facility] Future Scheduled Test 2022-07-20 00:00:00 DEPRESSION SCREENING (12+) [code = DEPRESSION SCREENING (12+)] [facility] Future Scheduled Test 2022-07-20 00:00:00 DEPRESSION SCREENING (12+) [code = DEPRESSION SCREENING (12+)] [facility] Future Scheduled Test 2022-07-20 00:00:00 DEPRESSION SCREENING (12+) [code = DEPRESSION SCREENING (12+)] [facility] Future Scheduled Test 2022-07-20 00:00:00 DEPRESSION SCREENING (12+) [code = DEPRESSION SCREENING (12+)] [facility] Future Scheduled Test 2022-07-20 00:00:00 DEPRESSION SCREENING (12+) [code = DEPRESSION SCREENING (12+)] [facility] Future Scheduled Test 2022-07-20 00:00:00 DEPRESSION SCREENING (12+) [code = DEPRESSION SCREENING (12+)] [facility] Future Scheduled Test 2022-07-20 00:00:00 DEPRESSION SCREENING (12+) [code = DEPRESSION SCREENING (12+)] [facility] Future Scheduled Test 2022-07-20 00:00:00 DEPRESSION SCREENING (12+) [code = DEPRESSION SCREENING (12+)] [facility] Future Scheduled Test 2022-07-20 00:00:00 DEPRESSION SCREENING (12+) [code = DEPRESSION SCREENING (12+)] [facility] Future Scheduled Test 2022-07-20 00:00:00 DEPRESSION SCREENING (12+) [code = DEPRESSION SCREENING (12+)] [facility] Future Scheduled Test 2022-06-21 00:00:00 COVID-19 VACCINE (4 - Booster for Pfizer series) [code = COVID-19 VACCINE (4 - Booster for Pfizer series)] [facility] Future Scheduled Test 2022-06-21 00:00:00 COVID-19 VACCINE (4 - Booster for Pfizer series) [code = COVID-19 VACCINE (4 - Booster for Pfizer series)] [facility] Future Scheduled Test 2022-06-21 00:00:00 COVID-19 VACCINE (4 - Booster for Pfizer series) [code = COVID-19 VACCINE (4 - Booster for Pfizer series)] [facility] Future Scheduled Test 2022-06-21 00:00:00 COVID-19 VACCINE (4 - Booster for Pfizer series) [code = COVID-19 VACCINE (4 - Booster for Pfizer series)] [facility] Future Scheduled Test 2022-04-16 00:00:00 COVID-19 VACCINE (4 - Booster for Pfizer series) [code = COVID-19 VACCINE (4 - Booster for Pfizer series)] [facility] Future Scheduled Test 2022-04-16 00:00:00 COVID-19 VACCINE (4 - Booster for Pfizer series) [code = COVID-19 VACCINE (4 - Booster for Pfizer series)] [facility] Future Scheduled Test 2022-04-16 00:00:00 COVID-19 VACCINE (4 - Booster for Pfizer series) [code = COVID-19 VACCINE (4 - Booster for Pfizer series)] [facility] Future Scheduled Test 2022-04-16 00:00:00 COVID-19 VACCINE (4 - Booster for Pfizer series) [code = COVID-19 VACCINE (4 - Booster for Pfizer series)] [facility] Future Scheduled Test 2022-04-16 00:00:00 COVID-19 VACCINE (4 - Booster for Pfizer series) [code = COVID-19 VACCINE (4 - Booster for Pfizer series)] [facility] Future Scheduled Test 2022-04-16 00:00:00 COVID-19 VACCINE (4 - Booster for Pfizer series) [code = COVID-19 VACCINE (4 - Booster for Pfizer series)] [facility] Future Scheduled Test 2022-04-16 00:00:00 COVID-19 VACCINE (4 - Booster for Pfizer series) [code = COVID-19 VACCINE (4 - Booster for Pfizer series)] [facility] Future Scheduled Test 2022-04-16 00:00:00 COVID-19 VACCINE (4 - Booster for Pfizer series) [code = COVID-19 VACCINE (4 - Booster for Pfizer series)] [facility] Future Scheduled Test 2022-04-16 00:00:00 COVID-19 VACCINE (4 - Booster for Pfizer series) [code = COVID-19 VACCINE (4 - Booster for Pfizer series)] [facility] Future Scheduled Test 2022-04-16 00:00:00 COVID-19 VACCINE (4 - Booster for Pfizer series) [code = COVID-19 VACCINE (4 - Booster for Pfizer series)] [facility] Future Scheduled Test 2022-04-16 00:00:00 COVID-19 VACCINE (4 - Booster for Pfizer series) [code = COVID-19 VACCINE (4 - Booster for Pfizer series)] [facility] Future Scheduled Test 2022-04-16 00:00:00 COVID-19 VACCINE (4 - Booster for Pfizer series) [code = COVID-19 VACCINE (4 - Booster for Pfizer series)] [facility] Future Scheduled Test 2022-04-16 00:00:00 COVID-19 VACCINE (4 - Booster for Pfizer series) [code = COVID-19 VACCINE (4 - Booster for Pfizer series)] [facility] Future Scheduled Test 2022-04-16 00:00:00 COVID-19 VACCINE (4 - Booster for Pfizer series) [code = COVID-19 VACCINE (4 - Booster for Pfizer series)] [facility] Future Scheduled Test 2022-04-16 00:00:00 COVID-19 VACCINE (4 - Booster for Pfizer series) [code = COVID-19 VACCINE (4 - Booster for Pfizer series)] [facility] Future Scheduled Test 2022-04-16 00:00:00 COVID-19 VACCINE (4 - Booster for Pfizer series) [code = COVID-19 VACCINE (4 - Booster for Pfizer series)] [facility] Future Scheduled Test 2022-04-16 00:00:00 COVID-19 VACCINE (4 - Booster for Pfizer series) [code = COVID-19 VACCINE (4 - Booster for Pfizer series)] [facility] Future Scheduled Test 2022-04-16 00:00:00 COVID-19 VACCINE (4 - Booster for Pfizer series) [code = COVID-19 VACCINE (4 - Booster for Pfizer series)] [facility] Future Scheduled Test 2022-04-16 00:00:00 COVID-19 VACCINE (4 - Booster for Pfizer series) [code = COVID-19 VACCINE (4 - Booster for Pfizer series)] [facility] Future Scheduled Test 2022-04-16 00:00:00 COVID-19 VACCINE (4 - Booster for Pfizer series) [code = COVID-19 VACCINE (4 - Booster for Pfizer series)] [facility] Future Scheduled Test 2022-04-16 00:00:00 COVID-19 VACCINE (4 - Pfizer series) [code = COVID-19 VACCINE (4 - Pfizer series)] [facility] Future Scheduled Test 2022-04-16 00:00:00 COVID-19 VACCINE (4 - Pfizer series) [code = COVID-19 VACCINE (4 - Pfizer series)] [facility] Future Scheduled Test 2022-04-16 00:00:00 COVID-19 VACCINE (4 - Pfizer series) [code = COVID-19 VACCINE (4 - Pfizer series)] [facility] Future Scheduled Test 2022-04-16 00:00:00 COVID-19 VACCINE (4 - Pfizer series) [code = COVID-19 VACCINE (4 - Pfizer series)] [facility] Future Scheduled Test 2022-04-16 00:00:00 COVID-19 VACCINE (4 - Booster for Pfizer series) [code = COVID-19 VACCINE (4 - Booster for Pfizer series)] [facility] Future Scheduled Test 2022-04-16 00:00:00 COVID-19 VACCINE (4 - Pfizer series) [code = COVID-19 VACCINE (4 - Pfizer series)] [facility] Future Scheduled Test 2022-03-20 00:00:00 INFLUENZA VACCINE (#1) [code = INFLUENZA VACCINE (#1)] [facility] Future Scheduled Test 2022-03-20 00:00:00 INFLUENZA VACCINE (#1) [code = INFLUENZA VACCINE (#1)] [facility] Future Scheduled Test 2022-03-20 00:00:00 INFLUENZA VACCINE (#1) [code = INFLUENZA VACCINE (#1)] [facility] Future Scheduled Test 2022-03-20 00:00:00 INFLUENZA VACCINE (#1) [code = INFLUENZA VACCINE (#1)] [facility] Future Scheduled Test 2022-01-14 00:00:00 SHINGLES VACCINES (1 of 2) [code = SHINGLES VACCINES (1 of 2)] [facility] Future Scheduled Test 2022-01-14 00:00:00 SHINGLES VACCINES (1 of 2) [code = SHINGLES VACCINES (1 of 2)] [facility] Future Scheduled Test 2022-01-14 00:00:00 SHINGLES VACCINES (1 of 2) [code = SHINGLES VACCINES (1 of 2)] [facility] Future Scheduled Test 2022-01-14 00:00:00 SHINGLES VACCINES (1 of 2) [code = SHINGLES VACCINES (1 of 2)] [facility] Future Scheduled Test 2022-01-14 00:00:00 SHINGLES VACCINES (1 of 2) [code = SHINGLES VACCINES (1 of 2)] [facility] Future Scheduled Test 2022-01-14 00:00:00 SHINGLES VACCINES (1 of 2) [code = SHINGLES VACCINES (1 of 2)] [facility] Future Scheduled Test 2022-01-14 00:00:00 SHINGLES VACCINES (1 of 2) [code = SHINGLES VACCINES (1 of 2)] [facility] Future Scheduled Test 2022-01-14 00:00:00 SHINGLES VACCINES (1 of 2) [code = SHINGLES VACCINES (1 of 2)] [facility] Future Scheduled Test 2022-01-14 00:00:00 SHINGLES VACCINES (1 of 2) [code = SHINGLES VACCINES (1 of 2)] [facility] Future Scheduled Test 2022-01-14 00:00:00 SHINGLES VACCINES (1 of 2) [code = SHINGLES VACCINES (1 of 2)] [facility] Future Scheduled Test 2022-01-14 00:00:00 SHINGLES VACCINES (1 of 2) [code = SHINGLES VACCINES (1 of 2)] [facility] Future Scheduled Test 2022-01-14 00:00:00 SHINGLES VACCINES (1 of 2) [code = SHINGLES VACCINES (1 of 2)] [facility] Future Scheduled Test 2022-01-14 00:00:00 SHINGLES VACCINES (1 of 2) [code = SHINGLES VACCINES (1 of 2)] [facility] Future Scheduled Test 2022-01-14 00:00:00 SHINGLES VACCINES (1 of 2) [code = SHINGLES VACCINES (1 of 2)] [facility] Future Scheduled Test 2022-01-14 00:00:00 SHINGLES VACCINES (1 of 2) [code = SHINGLES VACCINES (1 of 2)] [facility] Future Scheduled Test 2022-01-14 00:00:00 Screening for malignant neoplasm of lung (procedure) [code = [id number]] [facility] Future Scheduled Test 2022-01-14 00:00:00 SHINGLES VACCINES (1 of 2) [code = SHINGLES VACCINES (1 of 2)] [facility] Future Scheduled Test 2022-01-14 00:00:00 Screening for malignant neoplasm of lung (procedure) [code = [id number]] [facility] Future Scheduled Test 2022-01-14 00:00:00 SHINGLES VACCINES (1 of 2) [code = SHINGLES VACCINES (1 of 2)] [facility] Future Scheduled Test 2022-01-14 00:00:00 Screening for malignant neoplasm of lung (procedure) [code = [id number]] [facility] Future Scheduled Test 2022-01-14 00:00:00 SHINGLES VACCINES (1 of 2) [code = SHINGLES VACCINES (1 of 2)] [facility] Future Scheduled Test 2022-01-14 00:00:00 Screening for malignant neoplasm of lung (procedure) [code = [id number]] [facility] Future Scheduled Test 2022-01-14 00:00:00 SHINGLES VACCINES (1 of 2) [code = SHINGLES VACCINES (1 of 2)] [facility] Future Scheduled Test 2022-01-14 00:00:00 Screening for malignant neoplasm of lung (procedure) [code = [id number]] [facility] Future Scheduled Test 2022-01-14 00:00:00 SHINGLES VACCINES (1 of 2) [code = SHINGLES VACCINES (1 of 2)] [facility] Future Scheduled Test 2022-01-14 00:00:00 Screening for malignant neoplasm of lung (procedure) [code = [id number]] [facility] Future Scheduled Test 2022-01-14 00:00:00 SHINGLES VACCINES (1 of 2) [code = SHINGLES VACCINES (1 of 2)] [facility] Future Scheduled Test 2022-01-14 00:00:00 Screening for malignant neoplasm of lung (procedure) [code = [id number]] [facility] Future Scheduled Test 2022-01-14 00:00:00 SHINGLES VACCINES (1 of 2) [code = SHINGLES VACCINES (1 of 2)] [facility] Future Scheduled Test 2022-01-14 00:00:00 Screening for malignant neoplasm of lung (procedure) [code = [id number]] [facility] Future Scheduled Test 2022-01-14 00:00:00 SHINGLES VACCINES (1 of 2) [code = SHINGLES VACCINES (1 of 2)] [facility] Future Scheduled Test 2022-01-14 00:00:00 Screening for malignant neoplasm of lung (procedure) [code = [id number]] [facility] Future Scheduled Test 2022-01-14 00:00:00 SHINGLES VACCINES (1 of 2) [code = SHINGLES VACCINES (1 of 2)] [facility] Future Scheduled Test 2022-01-14 00:00:00 Screening for malignant neoplasm of lung (procedure) [code = [id number]] [facility] Future Scheduled Test 2022-01-14 00:00:00 SHINGLES VACCINES (1 of 2) [code = SHINGLES VACCINES (1 of 2)] [facility] Future Scheduled Test 2022-01-14 00:00:00 Screening for malignant neoplasm of lung (procedure) [code = [id number]] [facility] Future Scheduled Test 2022-01-14 00:00:00 SHINGLES VACCINES (1 of 2) [code = SHINGLES VACCINES (1 of 2)] [facility] Future Scheduled Test 2022-01-14 00:00:00 Screening for malignant neoplasm of lung (procedure) [code = [id number]] [facility] Future Scheduled Test 2022-01-14 00:00:00 SHINGLES VACCINES (1 of 2) [code = SHINGLES VACCINES (1 of 2)] [facility] Future Scheduled Test 2022-01-14 00:00:00 Screening for malignant neoplasm of lung (procedure) [code = 173981161] [facility] Future Scheduled Test 2022-01-14 00:00:00 SHINGLES VACCINES (1 of 2) [code = SHINGLES VACCINES (1 of 2)] [facility] Future Scheduled Test 2022-01-14 00:00:00 Screening for malignant neoplasm of lung (procedure) [code = [id number]] [facility] Future Scheduled Test 2022-01-14 00:00:00 SHINGLES VACCINES (1 of 2) [code = SHINGLES VACCINES (1 of 2)] [facility] Future Scheduled Test 2022-01-14 00:00:00 Screening for malignant neoplasm of lung (procedure) [code = [id number]] [facility] Future Scheduled Test 2022-01-14 00:00:00 SHINGLES VACCINES (1 of 2) [code = SHINGLES VACCINES (1 of 2)] [facility] Future Scheduled Test 2022-01-14 00:00:00 Screening for malignant neoplasm of lung (procedure) [code = [id number]] [facility] Future Scheduled Test 2022-01-14 00:00:00 SHINGLES VACCINES (1 of 2) [code = SHINGLES VACCINES (1 of 2)] [facility] Future Scheduled Test 2022-01-14 00:00:00 Screening for malignant neoplasm of lung (procedure) [code = 757865008] [facility] Future Scheduled Test 2022-01-14 00:00:00 SHINGLES VACCINES (1 of 2) [code = SHINGLES VACCINES (1 of 2)] [facility] Future Scheduled Test 2022-01-14 00:00:00 Screening for malignant neoplasm of lung (procedure) [code = [id number]] [facility] Future Scheduled Test 2022-01-14 00:00:00 SHINGLES VACCINES (1 of 2) [code = SHINGLES VACCINES (1 of 2)] [facility] Future Scheduled Test 2022-01-14 00:00:00 Screening for malignant neoplasm of lung (procedure) [code = [id number]] [facility] Future Scheduled Test 2022-01-14 00:00:00 Screening for malignant neoplasm of lung (procedure) [code = 899970442] [facility] Future Scheduled Test 2022-01-14 00:00:00 SHINGLES VACCINES (1 of 2) [code = SHINGLES VACCINES (1 of 2)] [facility] Future Scheduled Test 2022-01-14 00:00:00 SHINGLES VACCINES (1 of 2) [code = SHINGLES VACCINES (1 of 2)] [facility] Future Scheduled Test 2022-01-14 00:00:00 Screening for malignant neoplasm of lung (procedure) [code = 582078197] [facility] Future Scheduled Test 2022-01-14 00:00:00 SHINGLES VACCINES (1 of 2) [code = SHINGLES VACCINES (1 of 2)] [facility] Future Scheduled Test 2022-01-14 00:00:00 Screening for malignant neoplasm of lung (procedure) [code = 783277812] [facility] Future Scheduled Test 2022-01-14 00:00:00 SHINGLES VACCINES (1 of 2) [code = SHINGLES VACCINES (1 of 2)] [facility] Future Scheduled Test 2022-01-14 00:00:00 Screening for malignant neoplasm of lung (procedure) [code = 235097403] [facility] Future Scheduled Test 2022-01-14 00:00:00 SHINGLES VACCINES (1 of 2) [code = SHINGLES VACCINES (1 of 2)] [facility] Future Scheduled Test 2022-01-14 00:00:00 Screening for malignant neoplasm of lung (procedure) [code = 194488724] [facility] Future Scheduled Test 2022-01-14 00:00:00 Screening for malignant neoplasm of lung (procedure) [code = 664315499] [facility] Future Scheduled Test 2022-01-14 00:00:00 SHINGLES VACCINES (1 of 2) [code = SHINGLES VACCINES (1 of 2)] [facility] Future Scheduled Test 2022-01-14 00:00:00 SHINGLES VACCINES (1 of 2) [code = SHINGLES VACCINES (1 of 2)] [facility] Future Scheduled Test 2022-01-14 00:00:00 Screening for malignant neoplasm of lung (procedure) [code = 534784917] [facility] Future Scheduled Test 2022-01-14 00:00:00 SHINGLES VACCINES (1 of 2) [code = SHINGLES VACCINES (1 of 2)] [facility] Future Scheduled Test 2022-01-14 00:00:00 Screening for malignant neoplasm of lung (procedure) [code = 567340900] [facility] Future Scheduled Test 2022-01-14 00:00:00 SHINGLES VACCINES (1 of 2) [code = SHINGLES VACCINES (1 of 2)] [facility] Future Scheduled Test 2022-01-14 00:00:00 Screening for malignant neoplasm of lung (procedure) [code = [id number]] [facility] Future Scheduled Test 2022-01-14 00:00:00 SHINGLES VACCINES (1 of 2) [code = SHINGLES VACCINES (1 of 2)] [facility] Future Scheduled Test 2022-01-14 00:00:00 Screening for malignant neoplasm of lung (procedure) [code = 198368840] [facility] Future Scheduled Test 2022-01-14 00:00:00 SHINGLES VACCINES (1 of 2) [code = SHINGLES VACCINES (1 of 2)] [facility] Future Scheduled Test 2022-01-14 00:00:00 SHINGLES VACCINES (1 of 2) [code = SHINGLES VACCINES (1 of 2)] [facility] Future Scheduled Test 2022-01-14 00:00:00 SHINGLES VACCINES (1 of 2) [code = SHINGLES VACCINES (1 of 2)] [facility] Future Scheduled Test 2022-01-14 00:00:00 Screening for malignant neoplasm of lung (procedure) [code = 186943135] [facility] Future Scheduled Test 2022-01-14 00:00:00 SHINGLES VACCINES (1 of 2) [code = SHINGLES VACCINES (1 of 2)] [facility] Future Scheduled Test 2022-01-14 00:00:00 Screening for malignant neoplasm of lung (procedure) [code = 288627292] [facility] Future Scheduled Test 2022-01-14 00:00:00 SHINGLES VACCINES (1 of 2) [code = SHINGLES VACCINES (1 of 2)] [facility] Future Scheduled Test 2022-01-14 00:00:00 Screening for malignant neoplasm of lung (procedure) [code = 367512645] [facility] Future Scheduled Test 2022-01-14 00:00:00 SHINGLES VACCINES (1 of 2) [code = SHINGLES VACCINES (1 of 2)] [facility] Future Scheduled Test 2022-01-14 00:00:00 Screening for malignant neoplasm of lung (procedure) [code = 168006521] [facility] Future Scheduled Test 2022-01-14 00:00:00 SHINGLES VACCINES (1 of 2) [code = SHINGLES VACCINES (1 of 2)] [facility] Future Scheduled Test 2022-01-14 00:00:00 Screening for malignant neoplasm of lung (procedure) [code = 617996720] [facility] Future Scheduled Test 2022-01-14 00:00:00 SHINGLES VACCINES (1 of 2) [code = SHINGLES VACCINES (1 of 2)] [facility] Future Scheduled Test 2022-01-14 00:00:00 Screening for malignant neoplasm of lung (procedure) [code = 190884038] [facility] Future Scheduled Test 2022-01-14 00:00:00 SHINGLES VACCINES (1 of 2) [code = SHINGLES VACCINES (1 of 2)] [facility] Future Scheduled Test 2022-01-14 00:00:00 Screening for malignant neoplasm of lung (procedure) [code = 414082506] [facility] Future Scheduled Test 2022-01-14 00:00:00 SHINGLES VACCINES (1 of 2) [code = SHINGLES VACCINES (1 of 2)] [facility] Future Scheduled Test 2022-01-14 00:00:00 Screening for malignant neoplasm of lung (procedure) [code = [id number]] [facility] Future Scheduled Test 2022-01-14 00:00:00 SHINGLES VACCINES (1 of 2) [code = SHINGLES VACCINES (1 of 2)] [facility] Future Scheduled Test 2013-12-15 00:00:00 PNEUMOCOCCAL VACCINE 0-64 YRS (2 - PCV) [code = PNEUMOCOCCAL VACCINE 0-64 YRS (2 - PCV)] [facility] Future Scheduled Test 2013-12-15 00:00:00 PNEUMOCOCCAL VACCINE 0-64 YRS (2 - PCV) [code = PNEUMOCOCCAL VACCINE 0-64 YRS (2 - PCV)] [facility] Future Scheduled Test 2013-12-15 00:00:00 PNEUMOCOCCAL VACCINE 0-64 YRS (2 - PCV) [code = PNEUMOCOCCAL VACCINE 0-64 YRS (2 - PCV)] [facility] Future Scheduled Test 2013-12-15 00:00:00 PNEUMOCOCCAL VACCINE 0-64 YRS (2 - PCV) [code = PNEUMOCOCCAL VACCINE 0-64 YRS (2 - PCV)] [facility] Future Scheduled Test 2013-12-15 00:00:00 Pneumococcal Vaccine: 0-64 Years (2 - PCV) [code = Pneumococcal Vaccine: 0-64 Years (2 - PCV)] [facility] Future Scheduled Test 2013-12-15 00:00:00 Pneumococcal Vaccine: 0-64 Years (2 - PCV) [code = Pneumococcal Vaccine: 0-64 Years (2 - PCV)] [facility] Future Scheduled Test 2013-12-15 00:00:00 Pneumococcal Vaccine: 0-64 Years (2 - PCV) [code = Pneumococcal Vaccine: 0-64 Years (2 - PCV)] [facility] Future Scheduled Test 2013-12-15 00:00:00 Pneumococcal Vaccine: 0-64 Years (2 - PCV) [code = Pneumococcal Vaccine: 0-64 Years (2 - PCV)] [facility] Future Scheduled Test 2013-12-15 00:00:00 Pneumococcal Vaccine: 0-64 Years (2 - PCV) [code = Pneumococcal Vaccine: 0-64 Years (2 - PCV)] [facility] Future Scheduled Test 2013-12-15 00:00:00 Pneumococcal Vaccine: 0-64 Years (2 - PCV) [code = Pneumococcal Vaccine: 0-64 Years (2 - PCV)] [facility] Future Scheduled Test 2013-12-15 00:00:00 Pneumococcal Vaccine: 0-64 Years (2 - PCV) [code = Pneumococcal Vaccine: 0-64 Years (2 - PCV)] [facility] Future Scheduled Test 2013-12-15 00:00:00 Pneumococcal Vaccine: 0-64 Years (2 - PCV) [code = Pneumococcal Vaccine: 0-64 Years (2 - PCV)] [facility] Future Scheduled Test 2013-12-15 00:00:00 Pneumococcal Vaccine: 0-64 Years (2 - PCV) [code = Pneumococcal Vaccine: 0-64 Years (2 - PCV)] [facility] Future Scheduled Test 2013-12-15 00:00:00 Pneumococcal Vaccine: 0-64 Years (2 - PCV) [code = Pneumococcal Vaccine: 0-64 Years (2 - PCV)] [facility] Future Scheduled Test 2013-12-15 00:00:00 Pneumococcal Vaccine: 0-64 Years (2 - PCV) [code = Pneumococcal Vaccine: 0-64 Years (2 - PCV)] [facility] Future Scheduled Test 2013-12-15 00:00:00 Pneumococcal Vaccine: 0-64 Years (2 - PCV) [code = Pneumococcal Vaccine: 0-64 Years (2 - PCV)] [facility] Future Scheduled Test 2013-12-15 00:00:00 Pneumococcal Vaccine: 0-64 Years (2 - PCV) [code = Pneumococcal Vaccine: 0-64 Years (2 - PCV)] [facility] Future Scheduled Test 2013-12-15 00:00:00 Pneumococcal Vaccine: 0-64 Years (2 - PCV) [code = Pneumococcal Vaccine: 0-64 Years (2 - PCV)] [facility] Future Scheduled Test 2013-12-15 00:00:00 Pneumococcal Vaccine: 0-64 Years (2 - PCV) [code = Pneumococcal Vaccine: 0-64 Years (2 - PCV)] [facility] Future Scheduled Test 2013-12-15 00:00:00 Pneumococcal Vaccine: 0-64 Years (2 - PCV) [code = Pneumococcal Vaccine: 0-64 Years (2 - PCV)] [facility] Future Scheduled Test 2013-12-15 00:00:00 Pneumococcal Vaccine: 0-64 Years (2 - PCV) [code = Pneumococcal Vaccine: 0-64 Years (2 - PCV)] [facility] Future Scheduled Test 2013-12-15 00:00:00 Pneumococcal Vaccine: 0-64 Years (2 - PCV) [code = Pneumococcal Vaccine: 0-64 Years (2 - PCV)] [facility] Future Scheduled Test 2013-12-15 00:00:00 Pneumococcal Vaccine: 0-64 Years (2 - PCV) [code = Pneumococcal Vaccine: 0-64 Years (2 - PCV)] [facility] Future Scheduled Test 2013-12-15 00:00:00 Pneumococcal Vaccine: 0-64 Years (2 - PCV) [code = Pneumococcal Vaccine: 0-64 Years (2 - PCV)] [facility] Future Scheduled Test 2013-12-15 00:00:00 Pneumococcal Vaccine: 0-64 Years (2 of 2 - PCV) [code = Pneumococcal Vaccine: 0-64 Years (2 of 2 - PCV)] [facility] Future Scheduled Test 2013-12-15 00:00:00 Pneumococcal Vaccine: 0-64 Years (2 of 2 - PCV) [code = Pneumococcal Vaccine: 0-64 Years (2 of 2 - PCV)] [facility] Future Scheduled Test 2013-12-15 00:00:00 Pneumococcal Vaccine: 0-64 Years (2 - PCV) [code = Pneumococcal Vaccine: 0-64 Years (2 - PCV)] [facility] Future Scheduled Test 2013-12-15 00:00:00 Pneumococcal Vaccine: 0-64 Years (2 - PCV) [code = Pneumococcal Vaccine: 0-64 Years (2 - PCV)] [facility] Future Scheduled Test 2013-12-15 00:00:00 Pneumococcal Vaccine: 0-64 Years (2 - PCV) [code = Pneumococcal Vaccine: 0-64 Years (2 - PCV)] [facility] Future Scheduled Test 2013-12-15 00:00:00 Pneumococcal Vaccine: 0-64 Years (2 of 2 - PCV) [code = Pneumococcal Vaccine: 0-64 Years (2 of 2 - PCV)] [facility] Future Scheduled Test 1993-01-14 00:00:00 Screening for malignant neoplasm of cervix (procedure) [code = [id number]] [facility] Future Scheduled Test 1993-01-14 00:00:00 Screening for malignant neoplasm of cervix (procedure) [code = [id number]] [facility] Future Scheduled Test 1993-01-14 00:00:00 Screening for malignant neoplasm of cervix (procedure) [code = [id number]] [facility] Future Scheduled Test 1993-01-14 00:00:00 Screening for malignant neoplasm of cervix (procedure) [code = [id number]] [facility] Future Scheduled Test 1993-01-14 00:00:00 Screening for malignant neoplasm of cervix (procedure) [code = [id number]] [facility] Future Scheduled Test 1993-01-14 00:00:00 Screening for malignant neoplasm of cervix (procedure) [code = [id number]] [facility] Future Scheduled Test 1993-01-14 00:00:00 Screening for malignant neoplasm of cervix (procedure) [code = [id number]] [facility] Future Scheduled Test 1993-01-14 00:00:00 Screening for malignant neoplasm of cervix (procedure) [code = [id number]] [facility] Future Scheduled Test 1993-01-14 00:00:00 Screening for malignant neoplasm of cervix (procedure) [code = [id number]] [facility] Future Scheduled Test 1993-01-14 00:00:00 Screening for malignant neoplasm of cervix (procedure) [code = [id number]] [facility] Future Scheduled Test 1993-01-14 00:00:00 Screening for malignant neoplasm of cervix (procedure) [code = [id number]] [facility] Future Scheduled Test 1993-01-14 00:00:00 Screening for malignant neoplasm of cervix (procedure) [code = [id number]] [facility] Future Scheduled Test 1993-01-14 00:00:00 Screening for malignant neoplasm of cervix (procedure) [code = [id number]] [facility] Future Scheduled Test 1993-01-14 00:00:00 Screening for malignant neoplasm of cervix (procedure) [code = [id number]] [facility] Future Scheduled Test 1993-01-14 00:00:00 Screening for malignant neoplasm of cervix (procedure) [code = [id number]] [facility] Future Scheduled Test 1993-01-14 00:00:00 Screening for malignant neoplasm of cervix (procedure) [code = [id number]] [facility] Future Scheduled Test 1993-01-14 00:00:00 Screening for malignant neoplasm of cervix (procedure) [code = [id number]] [facility] Future Scheduled Test 1993-01-14 00:00:00 Screening for malignant neoplasm of cervix (procedure) [code = [id number]] [facility] Future Scheduled Test 1993-01-14 00:00:00 Screening for malignant neoplasm of cervix (procedure) [code = [id number]] [facility] Future Scheduled Test 1993-01-14 00:00:00 Screening for malignant neoplasm of cervix (procedure) [code = [id number]] [facility] Future Scheduled Test 1993-01-14 00:00:00 Screening for malignant neoplasm of cervix (procedure) [code = [id number]] [facility] Future Scheduled Test 1993-01-14 00:00:00 Screening for malignant neoplasm of cervix (procedure) [code = [id number]] [facility] Future Scheduled Test 1993-01-14 00:00:00 Screening for malignant neoplasm of cervix (procedure) [code = [id number]] [facility] Future Scheduled Test 1993-01-14 00:00:00 Screening for malignant neoplasm of cervix (procedure) [code = [id number]] [facility] Future Scheduled Test 1993-01-14 00:00:00 Screening for malignant neoplasm of cervix (procedure) [code = [id number]] [facility] Future Scheduled Test 1993-01-14 00:00:00 Screening for malignant neoplasm of cervix (procedure) [code = [id number]] [facility] Future Scheduled Test 1993-01-14 00:00:00 Screening for malignant neoplasm of cervix (procedure) [code = [id number]] [facility] Future Scheduled Test 1993-01-14 00:00:00 Screening for malignant neoplasm of cervix (procedure) [code = [id number]] [facility] Future Scheduled Test 1993-01-14 00:00:00 Screening for malignant neoplasm of cervix (procedure) [code = [id number]] [facility] Future Scheduled Test 1993-01-14 00:00:00 Screening for malignant neoplasm of cervix (procedure) [code = [id number]] [facility] Future Scheduled Test 1993-01-14 00:00:00 Screening for malignant neoplasm of cervix (procedure) [code = [id number]] [facility] Future Scheduled Test 1993-01-14 00:00:00 Screening for malignant neoplasm of cervix (procedure) [code = 851883512] [facility] Future Scheduled Test 1993-01-14 00:00:00 Screening for malignant neoplasm of cervix (procedure) [code = 216554561] [facility] Future Scheduled Test 1993-01-14 00:00:00 Screening for malignant neoplasm of cervix (procedure) [code = [id number]] [facility] Future Scheduled Test 1993-01-14 00:00:00 Screening for malignant neoplasm of cervix (procedure) [code = [id number]] [facility] Future Scheduled Test 1993-01-14 00:00:00 Screening for malignant neoplasm of cervix (procedure) [code = [id number]] [facility] Future Scheduled Test 1993-01-14 00:00:00 Screening for malignant neoplasm of cervix (procedure) [code = [id number]] [facility] Future Scheduled Test 1993-01-14 00:00:00 Screening for malignant neoplasm of cervix (procedure) [code = [id number]] [facility] Future Scheduled Test 1993-01-14 00:00:00 Screening for malignant neoplasm of cervix (procedure) [code = 516743588] [facility] Future Scheduled Test 1993-01-14 00:00:00 Screening for malignant neoplasm of cervix (procedure) [code = 118302483] [facility] Future Scheduled Test 1993-01-14 00:00:00 Screening for malignant neoplasm of cervix (procedure) [code = [id number]] [facility] Future Scheduled Test 1993-01-14 00:00:00 Screening for malignant neoplasm of cervix (procedure) [code = [id number]] [facility] Future Scheduled Test 1993-01-14 00:00:00 Screening for malignant neoplasm of cervix (procedure) [code = [id number]] [facility] Future Scheduled Test 1993-01-14 00:00:00 Screening for malignant neoplasm of cervix (procedure) [code = [id number]] [facility] Future Scheduled Test 1993-01-14 00:00:00 Screening for malignant neoplasm of cervix (procedure) [code = 951476869] [facility] Future Scheduled Test 1993-01-14 00:00:00 Screening for malignant neoplasm of cervix (procedure) [code = [id number]] [facility] Future Scheduled Test 1993-01-14 00:00:00 Screening for malignant neoplasm of cervix (procedure) [code = [id number]] [facility] Future Scheduled Test 1993-01-14 00:00:00 Screening for malignant neoplasm of cervix (procedure) [code = [id number]] [facility] Future Scheduled Test 1993-01-14 00:00:00 Screening for malignant neoplasm of cervix (procedure) [code = [id number]] [facility] Future Scheduled Test 1993-01-14 00:00:00 Screening for malignant neoplasm of cervix (procedure) [code = [id number]] [facility] Future Scheduled Test 1993-01-14 00:00:00 Screening for malignant neoplasm of cervix (procedure) [code = [id number]] [facility] Future Scheduled Test 1993-01-14 00:00:00 Screening for malignant neoplasm of cervix (procedure) [code = [id number]] [facility] Future Scheduled Test 1993-01-14 00:00:00 Screening for malignant neoplasm of cervix (procedure) [code = [id number]] [facility] Future Scheduled Test 1993-01-14 00:00:00 Screening for malignant neoplasm of cervix (procedure) [code = [id number]] [facility] Future Scheduled Test 1991-01-14 00:00:00 DTAP/TDAP/TD VACCINES (1 - Tdap) [code = DTAP/TDAP/TD VACCINES (1 - Tdap)] [facility] Future Scheduled Test 1991-01-14 00:00:00 DTAP/TDAP/TD VACCINES (1 - Tdap) [code = DTAP/TDAP/TD VACCINES (1 - Tdap)] [facility] Future Scheduled Test 1991-01-14 00:00:00 DTAP/TDAP/TD VACCINES (1 - Tdap) [code = DTAP/TDAP/TD VACCINES (1 - Tdap)] [facility] Future Scheduled Test 1991-01-14 00:00:00 DTAP/TDAP/TD VACCINES (1 - Tdap) [code = DTAP/TDAP/TD VACCINES (1 - Tdap)] [facility] Future Scheduled Test 1991-01-14 00:00:00 DTAP/TDAP/TD VACCINES (1 - Tdap) [code = DTAP/TDAP/TD VACCINES (1 - Tdap)] [facility] Future Scheduled Test 1991-01-14 00:00:00 DTAP/TDAP/TD VACCINES (1 - Tdap) [code = DTAP/TDAP/TD VACCINES (1 - Tdap)] [facility] Future Scheduled Test 1991-01-14 00:00:00 DTAP/TDAP/TD VACCINES (1 - Tdap) [code = DTAP/TDAP/TD VACCINES (1 - Tdap)] [facility] Future Scheduled Test 1991-01-14 00:00:00 DTAP/TDAP/TD VACCINES (1 - Tdap) [code = DTAP/TDAP/TD VACCINES (1 - Tdap)] [facility] Future Scheduled Test 1991-01-14 00:00:00 DTAP/TDAP/TD VACCINES (1 - Tdap) [code = DTAP/TDAP/TD VACCINES (1 - Tdap)] [facility] Future Scheduled Test 1991-01-14 00:00:00 DTAP/TDAP/TD VACCINES (1 - Tdap) [code = DTAP/TDAP/TD VACCINES (1 - Tdap)] [facility] Future Scheduled Test 1991-01-14 00:00:00 DTAP/TDAP/TD VACCINES (1 - Tdap) [code = DTAP/TDAP/TD VACCINES (1 - Tdap)] [facility] Future Scheduled Test 1991-01-14 00:00:00 DTAP/TDAP/TD VACCINES (1 - Tdap) [code = DTAP/TDAP/TD VACCINES (1 - Tdap)] [facility] Future Scheduled Test 1991-01-14 00:00:00 DTAP/TDAP/TD VACCINES (1 - Tdap) [code = DTAP/TDAP/TD VACCINES (1 - Tdap)] [facility] Future Scheduled Test 1991-01-14 00:00:00 DTAP/TDAP/TD VACCINES (1 - Tdap) [code = DTAP/TDAP/TD VACCINES (1 - Tdap)] [facility] Future Scheduled Test 1991-01-14 00:00:00 DTAP/TDAP/TD VACCINES (1 - Tdap) [code = DTAP/TDAP/TD VACCINES (1 - Tdap)] [facility] Future Scheduled Test 1991-01-14 00:00:00 DTAP/TDAP/TD VACCINES (1 - Tdap) [code = DTAP/TDAP/TD VACCINES (1 - Tdap)] [facility] Future Scheduled Test 1991-01-14 00:00:00 DTAP/TDAP/TD VACCINES (1 - Tdap) [code = DTAP/TDAP/TD VACCINES (1 - Tdap)] [facility] Future Scheduled Test 1991-01-14 00:00:00 DTAP/TDAP/TD VACCINES (1 - Tdap) [code = DTAP/TDAP/TD VACCINES (1 - Tdap)] [facility] Future Scheduled Test 1991-01-14 00:00:00 DTAP/TDAP/TD VACCINES (1 - Tdap) [code = DTAP/TDAP/TD VACCINES (1 - Tdap)] [facility] Future Scheduled Test 1991-01-14 00:00:00 DTAP/TDAP/TD VACCINES (1 - Tdap) [code = DTAP/TDAP/TD VACCINES (1 - Tdap)] [facility] Future Scheduled Test 1991-01-14 00:00:00 DTAP/TDAP/TD VACCINES (1 - Tdap) [code = DTAP/TDAP/TD VACCINES (1 - Tdap)] [facility] Future Scheduled Test 1991-01-14 00:00:00 DTAP/TDAP/TD VACCINES (1 - Tdap) [code = DTAP/TDAP/TD VACCINES (1 - Tdap)] [facility] Future Scheduled Test 1991-01-14 00:00:00 DTAP/TDAP/TD VACCINES (1 - Tdap) [code = DTAP/TDAP/TD VACCINES (1 - Tdap)] [facility] Future Scheduled Test 1991-01-14 00:00:00 DTAP/TDAP/TD VACCINES (1 - Tdap) [code = DTAP/TDAP/TD VACCINES (1 - Tdap)] [facility] Future Scheduled Test 1991-01-14 00:00:00 DTAP/TDAP/TD VACCINES (1 - Tdap) [code = DTAP/TDAP/TD VACCINES (1 - Tdap)] [facility] Future Scheduled Test 1991-01-14 00:00:00 DTAP/TDAP/TD VACCINES (1 - Tdap) [code = DTAP/TDAP/TD VACCINES (1 - Tdap)] [facility] Future Scheduled Test 1991-01-14 00:00:00 DTAP/TDAP/TD VACCINES (1 - Tdap) [code = DTAP/TDAP/TD VACCINES (1 - Tdap)] [facility] Future Scheduled Test 1991-01-14 00:00:00 DTAP/TDAP/TD VACCINES (1 - Tdap) [code = DTAP/TDAP/TD VACCINES (1 - Tdap)] [facility] Future Scheduled Test 1991-01-14 00:00:00 DTAP/TDAP/TD VACCINES (1 - Tdap) [code = DTAP/TDAP/TD VACCINES (1 - Tdap)] [facility] Future Scheduled Test 1991-01-14 00:00:00 DTAP/TDAP/TD VACCINES (1 - Tdap) [code = DTAP/TDAP/TD VACCINES (1 - Tdap)] [facility] Future Scheduled Test 1991-01-14 00:00:00 DTAP/TDAP/TD VACCINES (1 - Tdap) [code = DTAP/TDAP/TD VACCINES (1 - Tdap)] [facility] Future Scheduled Test 1991-01-14 00:00:00 DTAP/TDAP/TD VACCINES (1 - Tdap) [code = DTAP/TDAP/TD VACCINES (1 - Tdap)] [facility] Future Scheduled Test 1991-01-14 00:00:00 DTAP/TDAP/TD VACCINES (1 - Tdap) [code = DTAP/TDAP/TD VACCINES (1 - Tdap)] [facility] Future Scheduled Test 1991-01-14 00:00:00 DTAP/TDAP/TD VACCINES (1 - Tdap) [code = DTAP/TDAP/TD VACCINES (1 - Tdap)] [facility] Future Scheduled Test 1991-01-14 00:00:00 DTAP/TDAP/TD VACCINES (1 - Tdap) [code = DTAP/TDAP/TD VACCINES (1 - Tdap)] [facility] Future Scheduled Test 1991-01-14 00:00:00 DTAP/TDAP/TD VACCINES (1 - Tdap) [code = DTAP/TDAP/TD VACCINES (1 - Tdap)] [facility] Future Scheduled Test 1991-01-14 00:00:00 DTAP/TDAP/TD VACCINES (1 - Tdap) [code = DTAP/TDAP/TD VACCINES (1 - Tdap)] [facility] Future Scheduled Test 1991-01-14 00:00:00 DTAP/TDAP/TD VACCINES (1 - Tdap) [code = DTAP/TDAP/TD VACCINES (1 - Tdap)] [facility] Future Scheduled Test 1991-01-14 00:00:00 DTAP/TDAP/TD VACCINES (1 - Tdap) [code = DTAP/TDAP/TD VACCINES (1 - Tdap)] [facility] Future Scheduled Test 1991-01-14 00:00:00 DTAP/TDAP/TD VACCINES (1 - Tdap) [code = DTAP/TDAP/TD VACCINES (1 - Tdap)] [facility] Future Scheduled Test 1991-01-14 00:00:00 DTAP/TDAP/TD VACCINES (1 - Tdap) [code = DTAP/TDAP/TD VACCINES (1 - Tdap)] [facility] Future Scheduled Test 1991-01-14 00:00:00 DTAP/TDAP/TD VACCINES (1 - Tdap) [code = DTAP/TDAP/TD VACCINES (1 - Tdap)] [facility] Future Scheduled Test 1991-01-14 00:00:00 DTAP/TDAP/TD VACCINES (1 - Tdap) [code = DTAP/TDAP/TD VACCINES (1 - Tdap)] [facility] Future Scheduled Test 1991-01-14 00:00:00 DTAP/TDAP/TD VACCINES (1 - Tdap) [code = DTAP/TDAP/TD VACCINES (1 - Tdap)] [facility] Future Scheduled Test 1991-01-14 00:00:00 DTAP/TDAP/TD VACCINES (1 - Tdap) [code = DTAP/TDAP/TD VACCINES (1 - Tdap)] [facility] Future Scheduled Test 1991-01-14 00:00:00 DTAP/TDAP/TD VACCINES (1 - Tdap) [code = DTAP/TDAP/TD VACCINES (1 - Tdap)] [facility] Future Scheduled Test 1991-01-14 00:00:00 DTAP/TDAP/TD VACCINES (1 - Tdap) [code = DTAP/TDAP/TD VACCINES (1 - Tdap)] [facility] Future Scheduled Test 1991-01-14 00:00:00 DTAP/TDAP/TD VACCINES (1 - Tdap) [code = DTAP/TDAP/TD VACCINES (1 - Tdap)] [facility] Future Scheduled Test 1991-01-14 00:00:00 DTAP/TDAP/TD VACCINES (1 - Tdap) [code = DTAP/TDAP/TD VACCINES (1 - Tdap)] [facility] Future Scheduled Test 1991-01-14 00:00:00 DTAP/TDAP/TD VACCINES (1 - Tdap) [code = DTAP/TDAP/TD VACCINES (1 - Tdap)] [facility] Future Scheduled Test 1991-01-14 00:00:00 DTAP/TDAP/TD VACCINES (1 - Tdap) [code = DTAP/TDAP/TD VACCINES (1 - Tdap)] [facility] Future Scheduled Test 1991-01-14 00:00:00 DTAP/TDAP/TD VACCINES (1 - Tdap) [code = DTAP/TDAP/TD VACCINES (1 - Tdap)] [facility] Future Scheduled Test 1991-01-14 00:00:00 DTAP/TDAP/TD VACCINES (1 - Tdap) [code = DTAP/TDAP/TD VACCINES (1 - Tdap)] [facility] Future Scheduled Test 1991-01-14 00:00:00 DTAP/TDAP/TD VACCINES (1 - Tdap) [code = DTAP/TDAP/TD VACCINES (1 - Tdap)] [facility] Future Scheduled Test 1990-01-14 00:00:00 HEPATITIS C SCREENING [code = HEPATITIS C SCREENING] [facility] Future Scheduled Test 1990-01-14 00:00:00 HEPATITIS C SCREENING [code = HEPATITIS C SCREENING] [facility] Future Scheduled Test 1990-01-14 00:00:00 HEPATITIS C SCREENING [code = HEPATITIS C SCREENING] [facility] Future Scheduled Test 1990-01-14 00:00:00 HEPATITIS C SCREENING [code = HEPATITIS C SCREENING] [facility] Future Scheduled Test 1990-01-14 00:00:00 HEPATITIS C SCREENING [code = HEPATITIS C SCREENING] [facility] Future Scheduled Test 1990-01-14 00:00:00 HEPATITIS C SCREENING [code = HEPATITIS C SCREENING] [facility] Future Scheduled Test 1990-01-14 00:00:00 HEPATITIS C SCREENING [code = HEPATITIS C SCREENING] [facility] Future Scheduled Test 1990-01-14 00:00:00 HEPATITIS C SCREENING [code = HEPATITIS C SCREENING] [facility] Future Scheduled Test 1990-01-14 00:00:00 HEPATITIS C SCREENING [code = HEPATITIS C SCREENING] [facility] Future Scheduled Test 1990-01-14 00:00:00 HEPATITIS C SCREENING [code = HEPATITIS C SCREENING] [facility] Future Scheduled Test 1990-01-14 00:00:00 HEPATITIS C SCREENING [code = HEPATITIS C SCREENING] [facility] Future Scheduled Test 1990-01-14 00:00:00 HEPATITIS C SCREENING [code = HEPATITIS C SCREENING] [facility] Future Scheduled Test 1990-01-14 00:00:00 HEPATITIS C SCREENING [code = HEPATITIS C SCREENING] [facility] Future Scheduled Test 1990-01-14 00:00:00 HEPATITIS C SCREENING [code = HEPATITIS C SCREENING] [facility] Future Scheduled Test 1990-01-14 00:00:00 HEPATITIS C SCREENING [code = HEPATITIS C SCREENING] [facility] Future Scheduled Test 1990-01-14 00:00:00 HEPATITIS C SCREENING [code = HEPATITIS C SCREENING] [facility] Future Scheduled Test 1990-01-14 00:00:00 HEPATITIS C SCREENING [code = HEPATITIS C SCREENING] [facility] Scheduled Test 1990-01-14 00:00:00 HEPATITIS C SCREENING [code = HEPATITIS C SCREENING] [facility] Future Scheduled Test 1990-01-14 00:00:00 HEPATITIS C SCREENING [code = HEPATITIS C SCREENING] [facility] Future Scheduled Test 1990-01-14 00:00:00 HEPATITIS C SCREENING [code = HEPATITIS C SCREENING] [facility] Future Scheduled Test 1990-01-14 00:00:00 HEPATITIS C SCREENING [code = HEPATITIS C SCREENING] [facility] Future Scheduled Test 1990-01-14 00:00:00 HEPATITIS C SCREENING [code = HEPATITIS C SCREENING] [facility] Future Scheduled Test 1990-01-14 00:00:00 HEPATITIS C SCREENING [code = HEPATITIS C SCREENING] [facility] Future Scheduled Test 1990-01-14 00:00:00 HEPATITIS C SCREENING [code = HEPATITIS C SCREENING] [facility] Future Scheduled Test 1990-01-14 00:00:00 HEPATITIS C SCREENING [code = HEPATITIS C SCREENING] [facility] Future Scheduled Test 1990-01-14 00:00:00 HEPATITIS C SCREENING [code = HEPATITIS C SCREENING] [facility] Future Scheduled Test 1990-01-14 00:00:00 HEPATITIS C SCREENING [code = HEPATITIS C SCREENING] [facility] Future Scheduled Test 1990-01-14 00:00:00 HEPATITIS C SCREENING [code = HEPATITIS C SCREENING] [facility] Future Scheduled Test 1990-01-14 00:00:00 HEPATITIS C SCREENING [code = HEPATITIS C SCREENING] [facility] Future Scheduled Test 1990-01-14 00:00:00 HEPATITIS C SCREENING [code = HEPATITIS C SCREENING] [facility] Future Scheduled Test 1990-01-14 00:00:00 HEPATITIS C SCREENING [code = HEPATITIS C SCREENING] [facility] Future Scheduled Test 1990-01-14 00:00:00 HEPATITIS C SCREENING [code = HEPATITIS C SCREENING] [facility] Future Scheduled Test 1990-01-14 00:00:00 HEPATITIS C SCREENING [code = HEPATITIS C SCREENING] [facility] Future Scheduled Test 1990-01-14 00:00:00 HEPATITIS C SCREENING [code = HEPATITIS C SCREENING] [facility] Future Scheduled Test 1990-01-14 00:00:00 HEPATITIS C SCREENING [code = HEPATITIS C SCREENING] [facility] Future Scheduled Test 1990-01-14 00:00:00 HEPATITIS C SCREENING [code = HEPATITIS C SCREENING] [facility] Future Scheduled Test 1990-01-14 00:00:00 HEPATITIS C SCREENING [code = HEPATITIS C SCREENING] [facility] Future Scheduled Test 1990-01-14 00:00:00 HEPATITIS C SCREENING [code = HEPATITIS C SCREENING] [facility] Future Scheduled Test 1990-01-14 00:00:00 HEPATITIS C SCREENING [code = HEPATITIS C SCREENING] [facility] Future Scheduled Test 1990-01-14 00:00:00 HEPATITIS C SCREENING [code = HEPATITIS C SCREENING] [facility] Future Scheduled Test 1990-01-14 00:00:00 HEPATITIS C SCREENING [code = HEPATITIS C SCREENING] [facility] Future Scheduled Test 1990-01-14 00:00:00 HEPATITIS C SCREENING [code = HEPATITIS C SCREENING] [facility] Future Scheduled Test 1990-01-14 00:00:00 HEPATITIS C SCREENING [code = HEPATITIS C SCREENING] [facility] Future Scheduled Test 1990-01-14 00:00:00 HEPATITIS C SCREENING [code = HEPATITIS C SCREENING] [facility] Future Scheduled Test 1990-01-14 00:00:00 HEPATITIS C SCREENING [code = HEPATITIS C SCREENING] [facility] Future Scheduled Test 1990-01-14 00:00:00 HEPATITIS C SCREENING [code = HEPATITIS C SCREENING] [facility] Future Scheduled Test 1990-01-14 00:00:00 HEPATITIS C SCREENING [code = HEPATITIS C SCREENING] [facility] Future Scheduled Test 1990-01-14 00:00:00 HEPATITIS C SCREENING [code = HEPATITIS C SCREENING] [facility] Future Scheduled Test 1990-01-14 00:00:00 HEPATITIS C SCREENING [code = HEPATITIS C SCREENING] [facility] Future Scheduled Test 1990-01-14 00:00:00 HEPATITIS C SCREENING [code = HEPATITIS C SCREENING] [facility] Future Scheduled Test 1990-01-14 00:00:00 HEPATITIS C SCREENING [code = HEPATITIS C SCREENING] [facility] Future Scheduled Test 1990-01-14 00:00:00 HEPATITIS C SCREENING [code = HEPATITIS C SCREENING] [facility] Future Scheduled Test 1990-01-14 00:00:00 HEPATITIS C SCREENING [code = HEPATITIS C SCREENING] [facility] Future Scheduled Test 1990-01-14 00:00:00 HEPATITIS C SCREENING [code = HEPATITIS C SCREENING] [facility] Future Scheduled Test 1987-01-14 00:00:00 Human immunodeficiency virus screening (procedure) [code = 773308590] [facility] Future Scheduled Test 1987-01-14 00:00:00 Human immunodeficiency virus screening (procedure) [code = [id number]] [facility] Future Scheduled Test 1984 00:00:00 Tobacco Cessation Counseling and Screening (12+) [code = Tobacco Cessation Counseling and Screening (12+)] [facility] Future Scheduled Test 1984 00:00:00 Tobacco Cessation Counseling and Screening (12+) [code = Tobacco Cessation Counseling and Screening (12+)] [facility] Future Scheduled Test 1984 00:00:00 Tobacco Cessation Counseling and Screening (12+) [code = Tobacco Cessation Counseling and Screening (12+)] [facility] Future Scheduled Test 1984 00:00:00 Tobacco Cessation Counseling and Screening (12+) [code = Tobacco Cessation Counseling and Screening (12+)] [facility] Future Scheduled Test 1984 00:00:00 Tobacco Cessation Counseling and Screening (12+) [code = Tobacco Cessation Counseling and Screening (12+)] [facility] Future Scheduled Test 1984 00:00:00 Tobacco Cessation Counseling and Screening (12+) [code = Tobacco Cessation Counseling and Screening (12+)] [facility] Scheduled Test 1984 00:00:00 Tobacco Cessation Counseling and Screening (12+) [code = Tobacco Cessation Counseling and Screening (12+)] [facility] Scheduled Test 1984 00:00:00 Tobacco Cessation Counseling and Screening (12+) [code = Tobacco Cessation Counseling and Screening (12+)] [facility] Future Scheduled Test 1984 00:00:00 Tobacco Cessation Counseling and Screening (12+) [code = Tobacco Cessation Counseling and Screening (12+)] [facility] Future Scheduled Test 1984 00:00:00 Tobacco Cessation Counseling and Screening (12+) [code = Tobacco Cessation Counseling and Screening (12+)] [facility] Future Scheduled Test 1984 00:00:00 Tobacco Cessation Counseling and Screening (12+) [code = Tobacco Cessation Counseling and Screening (12+)] [facility] Future Scheduled Test 1984 00:00:00 Tobacco Cessation Counseling and Screening (12+) [code = Tobacco Cessation Counseling and Screening (12+)] [facility] Future Scheduled Test 1984 00:00:00 Tobacco Cessation Counseling and Screening (12+) [code = Tobacco Cessation Counseling and Screening (12+)] [facility] Future Scheduled Test 1984 00:00:00 Tobacco Cessation Counseling and Screening (12+) [code = Tobacco Cessation Counseling and Screening (12+)] [facility] Future Scheduled Test 1984 00:00:00 Tobacco Cessation Counseling and Screening (12+) [code = Tobacco Cessation Counseling and Screening (12+)] [facility] Future Scheduled Test 1984 00:00:00 Tobacco Cessation Counseling and Screening (12+) [code = Tobacco Cessation Counseling and Screening (12+)] [facility] Future Scheduled Test 1984 00:00:00 Tobacco Cessation Counseling and Screening (12+) [code = Tobacco Cessation Counseling and Screening (12+)] [facility] Future Scheduled Test 1984 00:00:00 Tobacco Cessation Counseling and Screening (12+) [code = Tobacco Cessation Counseling and Screening (12+)] [facility] Scheduled Test 1984 00:00:00 Tobacco Cessation Counseling and Screening (12+) [code = Tobacco Cessation Counseling and Screening (12+)] [facility] Scheduled Test 1984 00:00:00 Tobacco Cessation Counseling and Screening (12+) [code = Tobacco Cessation Counseling and Screening (12+)] [facility] Future Scheduled Test 1984 00:00:00 Tobacco Cessation Counseling and Screening (12+) [code = Tobacco Cessation Counseling and Screening (12+)] [facility] Future Scheduled Test 1984 00:00:00 Tobacco Cessation Counseling and Screening (12+) [code = Tobacco Cessation Counseling and Screening (12+)] [facility] Future Scheduled Test 1984 00:00:00 Tobacco Cessation Counseling and Screening (12+) [code = Tobacco Cessation Counseling and Screening (12+)] [facility] Future Scheduled Test 1972 00:00:00 Screening for malignant neoplasm of breast (procedure) [code = [id number]] [facility] Future Scheduled Test 1972 00:00:00 CT Colonography (combo) [code = CT Colonography (combo)] [facility] Future Scheduled Test 1972 00:00:00 Screening for malignant neoplasm of colon (procedure) [code = [id number]] [facility] Future Scheduled Test 1972 00:00:00 Screening for malignant neoplasm of colon (procedure) [code = [id number]] [facility] Future Scheduled Test 1972 00:00:00 Screening for malignant neoplasm of colon (procedure) [code = 934402645] [facility] Future Scheduled Test 1972 00:00:00 Screening for malignant neoplasm of colon (procedure) [code = 298323574] [facility] Future Scheduled Test 1972 00:00:00 Sigmoidoscopy [code = Sigmoidoscopy] [facility] Future Scheduled Test 1972 00:00:00 Screening for malignant neoplasm of breast (procedure) [code = 276504982] [facility] Future Scheduled Test 1972 00:00:00 CT Colonography (combo) [code = CT Colonography (combo)] [facility] Future Scheduled Test 1972 00:00:00 Screening for malignant neoplasm of colon (procedure) [code = 613139552] [facility] Future Scheduled Test 1972 00:00:00 Screening for malignant neoplasm of colon (procedure) [code = 202511925] [facility] Future Scheduled Test 1972 00:00:00 Screening for malignant neoplasm of colon (procedure) [code = 304520387] [facility] Future Scheduled Test 1972 00:00:00 Screening for malignant neoplasm of colon (procedure) [code = 565344769] [facility] Future Scheduled Test 1972 00:00:00 Sigmoidoscopy [code = Sigmoidoscopy] [facility] Future Scheduled Test 1972 00:00:00 Screening for malignant neoplasm of breast (procedure) [code = 582350324] [facility] Future Scheduled Test 1972 00:00:00 CT Colonography (combo) [code = CT Colonography (combo)] [facility] Future Scheduled Test 1972 00:00:00 Screening for malignant neoplasm of colon (procedure) [code = 829114897] [facility] Future Scheduled Test 1972 00:00:00 Screening for malignant neoplasm of colon (procedure) [code = 695416573] [facility] Future Scheduled Test 1972 00:00:00 Screening for malignant neoplasm of colon (procedure) [code = 890646808] [facility] Future Scheduled Test 1972 00:00:00 Screening for malignant neoplasm of colon (procedure) [code = 805186800] [facility] Future Scheduled Test 1972 00:00:00 Sigmoidoscopy [code = Sigmoidoscopy] [facility] Future Scheduled Test 1972 00:00:00 Screening for malignant neoplasm of breast (procedure) [code = 425037696] [facility] Future Scheduled Test 1972 00:00:00 CT Colonography (combo) [code = CT Colonography (combo)] [facility] Future Scheduled Test 1972 00:00:00 Screening for malignant neoplasm of colon (procedure) [code = 304756360] [facility] Future Scheduled Test 1972 00:00:00 Screening for malignant neoplasm of colon (procedure) [code = 591034900] [facility] Future Scheduled Test 1972 00:00:00 Screening for malignant neoplasm of colon (procedure) [code = 209822715] [facility] Future Scheduled Test 1972 00:00:00 Screening for malignant neoplasm of colon (procedure) [code = 904656281] [facility] Future Scheduled Test 1972 00:00:00 Sigmoidoscopy [code = Sigmoidoscopy] [facility] Future Scheduled Test 1972 00:00:00 Screening for malignant neoplasm of breast (procedure) [code = 772676676] [facility] Future Scheduled Test 1972 00:00:00 CT Colonography (combo) [code = CT Colonography (combo)] [facility] Future Scheduled Test 1972 00:00:00 Screening for malignant neoplasm of colon (procedure) [code = 371051303] [facility] Future Scheduled Test 1972 00:00:00 Screening for malignant neoplasm of colon (procedure) [code = 965571448] [facility] Future Scheduled Test 1972 00:00:00 Screening for malignant neoplasm of colon (procedure) [code = 458510671] [facility] Future Scheduled Test 1972 00:00:00 Screening for malignant neoplasm of colon (procedure) [code = 617951907] [facility] Future Scheduled Test 1972 00:00:00 Sigmoidoscopy [code = Sigmoidoscopy] [facility] Future Scheduled Test 1972 00:00:00 Screening for malignant neoplasm of breast (procedure) [code = 887234312] [facility] Future Scheduled Test 1972 00:00:00 CT Colonography (combo) [code = CT Colonography (combo)] [facility] Future Scheduled Test 1972 00:00:00 Screening for malignant neoplasm of colon (procedure) [code = 864549433] [facility] Future Scheduled Test 1972 00:00:00 Screening for malignant neoplasm of colon (procedure) [code = 271128261] [facility] Future Scheduled Test 1972 00:00:00 Screening for malignant neoplasm of colon (procedure) [code = 735887837] [facility] Future Scheduled Test 1972 00:00:00 Screening for malignant neoplasm of colon (procedure) [code = 215317248] [facility] Future Scheduled Test 1972 00:00:00 Sigmoidoscopy [code = Sigmoidoscopy] [facility] Future Scheduled Test 1972 00:00:00 Screening for malignant neoplasm of breast (procedure) [code = 650756134] [facility] Future Scheduled Test 1972 00:00:00 CT Colonography (combo) [code = CT Colonography (combo)] [facility] Future Scheduled Test 1972 00:00:00 Screening for malignant neoplasm of colon (procedure) [code = 112320536] [facility] Future Scheduled Test 1972 00:00:00 Screening for malignant neoplasm of colon (procedure) [code = 834396079] [facility] Future Scheduled Test 1972 00:00:00 Screening for malignant neoplasm of colon (procedure) [code = 372188916] [facility] Future Scheduled Test 1972 00:00:00 Screening for malignant neoplasm of colon (procedure) [code = 330543186] [facility] Future Scheduled Test 1972 00:00:00 Sigmoidoscopy [code = Sigmoidoscopy] [facility] Future Scheduled Test 1972 00:00:00 Screening for malignant neoplasm of breast (procedure) [code = 954675757] [facility] Future Scheduled Test 1972 00:00:00 CT Colonography (combo) [code = CT Colonography (combo)] [facility] Future Scheduled Test 1972 00:00:00 Screening for malignant neoplasm of colon (procedure) [code = 637566104] [facility] Future Scheduled Test 1972 00:00:00 Screening for malignant neoplasm of colon (procedure) [code = 335161552] [facility] Future Scheduled Test 1972 00:00:00 Screening for malignant neoplasm of colon (procedure) [code = 559489924] [facility] Future Scheduled Test 1972 00:00:00 Screening for malignant neoplasm of colon (procedure) [code = 878184038] [facility] Future Scheduled Test 1972 00:00:00 Sigmoidoscopy [code = Sigmoidoscopy] [facility] Future Scheduled Test 1972 00:00:00 Screening for malignant neoplasm of breast (procedure) [code = 726788286] [facility] Future Scheduled Test 1972 00:00:00 CT Colonography (combo) [code = CT Colonography (combo)] [facility] Future Scheduled Test 1972 00:00:00 Screening for malignant neoplasm of colon (procedure) [code = 102842787] [facility] Future Scheduled Test 1972 00:00:00 Screening for malignant neoplasm of colon (procedure) [code = 894637321] [facility] Future Scheduled Test 1972 00:00:00 Screening for malignant neoplasm of colon (procedure) [code = 774756748] [facility] Future Scheduled Test 1972 00:00:00 Screening for malignant neoplasm of colon (procedure) [code = 384774524] [facility] Future Scheduled Test 1972 00:00:00 Sigmoidoscopy [code = Sigmoidoscopy] [facility] Future Scheduled Test 1972 00:00:00 Screening for malignant neoplasm of breast (procedure) [code = 491312240] [facility] Future Scheduled Test 1972 00:00:00 CT Colonography (combo) [code = CT Colonography (combo)] [facility] Future Scheduled Test 1972 00:00:00 Screening for malignant neoplasm of colon (procedure) [code = 669768888] [facility] Future Scheduled Test 1972 00:00:00 Screening for malignant neoplasm of colon (procedure) [code = 640473226] [facility] Future Scheduled Test 1972 00:00:00 Screening for malignant neoplasm of colon (procedure) [code = 952764976] [facility] Future Scheduled Test 1972 00:00:00 Screening for malignant neoplasm of colon (procedure) [code = 896545441] [facility] Future Scheduled Test 1972 00:00:00 Sigmoidoscopy [code = Sigmoidoscopy] [facility] Future Scheduled Test 1972 00:00:00 Screening for malignant neoplasm of breast (procedure) [code = 532438899] [facility] Future Scheduled Test 1972 00:00:00 CT Colonography (combo) [code = CT Colonography (combo)] [facility] Future Scheduled Test 1972 00:00:00 Screening for malignant neoplasm of colon (procedure) [code = 218326993] [facility] Future Scheduled Test 1972 00:00:00 Screening for malignant neoplasm of colon (procedure) [code = 114014230] [facility] Future Scheduled Test 1972 00:00:00 Screening for malignant neoplasm of colon (procedure) [code = 262706640] [facility] Future Scheduled Test 1972 00:00:00 Screening for malignant neoplasm of colon (procedure) [code = 452943695] [facility] Future Scheduled Test 1972 00:00:00 Sigmoidoscopy [code = Sigmoidoscopy] [facility] Future Scheduled Test 1972 00:00:00 Screening for malignant neoplasm of breast (procedure) [code = 471151014] [facility] Future Scheduled Test 1972 00:00:00 CT Colonography (combo) [code = CT Colonography (combo)] [facility] Future Scheduled Test 1972 00:00:00 Screening for malignant neoplasm of colon (procedure) [code = 761246102] [facility] Future Scheduled Test 1972 00:00:00 Screening for malignant neoplasm of colon (procedure) [code = 519445836] [facility] Future Scheduled Test 1972 00:00:00 Screening for malignant neoplasm of colon (procedure) [code = 778501325] [facility] Future Scheduled Test 1972 00:00:00 Screening for malignant neoplasm of colon (procedure) [code = 817592349] [facility] Future Scheduled Test 1972 00:00:00 Sigmoidoscopy [code = Sigmoidoscopy] [facility] Future Scheduled Test 1972 00:00:00 Screening for malignant neoplasm of breast (procedure) [code = 230176986] [facility] Future Scheduled Test 1972 00:00:00 CT Colonography (combo) [code = CT Colonography (combo)] [facility] Future Scheduled Test 1972 00:00:00 Screening for malignant neoplasm of colon (procedure) [code = 869861470] [facility] Future Scheduled Test 1972 00:00:00 Screening for malignant neoplasm of colon (procedure) [code = 572439416] [facility] Future Scheduled Test 1972 00:00:00 Screening for malignant neoplasm of colon (procedure) [code = 410928583] [facility] Future Scheduled Test 1972 00:00:00 Screening for malignant neoplasm of colon (procedure) [code = 525265886] [facility] Future Scheduled Test 1972 00:00:00 Sigmoidoscopy [code = Sigmoidoscopy] [facility] Future Scheduled Test 1972 00:00:00 Screening for malignant neoplasm of breast (procedure) [code = 752126600] [facility] Future Scheduled Test 1972 00:00:00 CT Colonography (combo) [code = CT Colonography (combo)] [facility] Future Scheduled Test 1972 00:00:00 Screening for malignant neoplasm of colon (procedure) [code = 421641298] [facility] Future Scheduled Test 1972 00:00:00 Screening for malignant neoplasm of colon (procedure) [code = 665202825] [facility] Future Scheduled Test 1972 00:00:00 Screening for malignant neoplasm of colon (procedure) [code = 858602499] [facility] Future Scheduled Test 1972 00:00:00 Screening for malignant neoplasm of colon (procedure) [code = 292542720] [facility] Future Scheduled Test 1972 00:00:00 Sigmoidoscopy [code = Sigmoidoscopy] [facility] Future Scheduled Test 1972 00:00:00 Screening for malignant neoplasm of breast (procedure) [code = 393971262] [facility] Future Scheduled Test 1972 00:00:00 CT Colonography (combo) [code = CT Colonography (combo)] [facility] Future Scheduled Test 1972 00:00:00 Screening for malignant neoplasm of colon (procedure) [code = 344130187] [facility] Future Scheduled Test 1972 00:00:00 Screening for malignant neoplasm of colon (procedure) [code = 532821230] [facility] Future Scheduled Test 1972 00:00:00 Screening for malignant neoplasm of colon (procedure) [code = 082998024] [facility] Future Scheduled Test 1972 00:00:00 Screening for malignant neoplasm of colon (procedure) [code = 418981926] [facility] Future Scheduled Test 1972 00:00:00 Sigmoidoscopy [code = Sigmoidoscopy] [facility] Future Scheduled Test 1972 00:00:00 Screening for malignant neoplasm of breast (procedure) [code = 463459963] [facility] Future Scheduled Test 1972 00:00:00 CT Colonography (combo) [code = CT Colonography (combo)] [facility] Future Scheduled Test 1972 00:00:00 Screening for malignant neoplasm of colon (procedure) [code = 781877898] [facility] Future Scheduled Test 1972 00:00:00 Screening for malignant neoplasm of colon (procedure) [code = [id number]] [facility] Future Scheduled Test 1972 00:00:00 Screening for malignant neoplasm of colon (procedure) [code = [id number]] [facility] Future Scheduled Test 1972 00:00:00 Screening for malignant neoplasm of colon (procedure) [code = 452407655] [facility] Future Scheduled Test 1972 00:00:00 Sigmoidoscopy [code = Sigmoidoscopy] [facility] Future Scheduled Test 1972 00:00:00 Screening for malignant neoplasm of breast (procedure) [code = 297627929] [facility] Future Scheduled Test 1972 00:00:00 CT Colonography (combo) [code = CT Colonography (combo)] [facility] Future Scheduled Test 1972 00:00:00 Screening for malignant neoplasm of colon (procedure) [code = [id number]] [facility] Future Scheduled Test 1972 00:00:00 Screening for malignant neoplasm of colon (procedure) [code = 684880819] [facility] Future Scheduled Test 1972 00:00:00 Screening for malignant neoplasm of colon (procedure) [code = [id number]] [facility] Future Scheduled Test 1972 00:00:00 Screening for malignant neoplasm of colon (procedure) [code = [id number]] [facility] Future Scheduled Test 1972 00:00:00 Sigmoidoscopy [code = Sigmoidoscopy] [facility] Future Scheduled Test 1972 00:00:00 Screening for malignant neoplasm of breast (procedure) [code = 327941573] [facility] Future Scheduled Test 1972 00:00:00 CT Colonography (combo) [code = CT Colonography (combo)] [facility] Future Scheduled Test 1972 00:00:00 Screening for malignant neoplasm of breast (procedure) [code = 001050571] [facility] Future Scheduled Test 1972 00:00:00 CT Colonography (combo) [code = CT Colonography (combo)] [facility] Future Scheduled Test 1972 00:00:00 Screening for malignant neoplasm of colon (procedure) [code = 170766491] [facility] Future Scheduled Test 1972 00:00:00 Screening for malignant neoplasm of colon (procedure) [code = [id number]] [facility] Future Scheduled Test 1972 00:00:00 Screening for malignant neoplasm of colon (procedure) [code = 404167473] [facility] Future Scheduled Test 1972 00:00:00 Screening for malignant neoplasm of colon (procedure) [code = 522416385] [facility] Future Scheduled Test 1972 00:00:00 Sigmoidoscopy [code = Sigmoidoscopy] [facility] Future Scheduled Test 1972 00:00:00 Screening for malignant neoplasm of colon (procedure) [code = 156360930] [facility] Future Scheduled Test 1972 00:00:00 Screening for malignant neoplasm of colon (procedure) [code = [id number]] [facility] Future Scheduled Test 1972 00:00:00 Screening for malignant neoplasm of colon (procedure) [code = 380609037] [facility] Future Scheduled Test 1972 00:00:00 Screening for malignant neoplasm of colon (procedure) [code = 859575565] [facility] Future Scheduled Test 1972 00:00:00 Sigmoidoscopy [code = Sigmoidoscopy] [facility] Future Scheduled Test 1972 00:00:00 Screening for malignant neoplasm of breast (procedure) [code = 046656453] [facility] Future Scheduled Test 1972 00:00:00 CT Colonography (combo) [code = CT Colonography (combo)] [facility] Future Scheduled Test 1972 00:00:00 Screening for malignant neoplasm of colon (procedure) [code = 308327624] [facility] Future Scheduled Test 1972 00:00:00 Screening for malignant neoplasm of colon (procedure) [code = 541887743] [facility] Future Scheduled Test 1972 00:00:00 Screening for malignant neoplasm of colon (procedure) [code = 198194042] [facility] Future Scheduled Test 1972 00:00:00 Screening for malignant neoplasm of colon (procedure) [code = 602194799] [facility] Future Scheduled Test 1972 00:00:00 Sigmoidoscopy [code = Sigmoidoscopy] [facility] Future Scheduled Test 1972 00:00:00 Screening for malignant neoplasm of breast (procedure) [code = 461597466] [facility] Future Scheduled Test 1972 00:00:00 CT Colonography (combo) [code = CT Colonography (combo)] [facility] Future Scheduled Test 1972 00:00:00 Screening for malignant neoplasm of colon (procedure) [code = 975715339] [facility] Future Scheduled Test 1972 00:00:00 Screening for malignant neoplasm of colon (procedure) [code = [id number]] [facility] Future Scheduled Test 1972 00:00:00 Screening for malignant neoplasm of colon (procedure) [code = 866318114] [facility] Future Scheduled Test 1972 00:00:00 Screening for malignant neoplasm of colon (procedure) [code = 865039796] [facility] Future Scheduled Test 1972 00:00:00 Sigmoidoscopy [code = Sigmoidoscopy] [facility] Future Scheduled Test 1972 00:00:00 Screening for malignant neoplasm of breast (procedure) [code = 691835935] [facility] Future Scheduled Test 1972 00:00:00 CT Colonography (combo) [code = CT Colonography (combo)] [facility] Future Scheduled Test 1972 00:00:00 Screening for malignant neoplasm of colon (procedure) [code = 580362467] [facility] Future Scheduled Test 1972 00:00:00 Screening for malignant neoplasm of colon (procedure) [code = 382357077] [facility] Future Scheduled Test 1972 00:00:00 Screening for malignant neoplasm of colon (procedure) [code = 931329163] [facility] Future Scheduled Test 1972 00:00:00 Screening for malignant neoplasm of colon (procedure) [code = [id number]] [facility] Future Scheduled Test 1972 00:00:00 Sigmoidoscopy [code = Sigmoidoscopy] [facility] Future Scheduled Test 1972 00:00:00 Screening for malignant neoplasm of breast (procedure) [code = 921218848] [facility] Future Scheduled Test 1972 00:00:00 CT Colonography (combo) [code = CT Colonography (combo)] [facility] Future Scheduled Test 1972 00:00:00 Screening for malignant neoplasm of colon (procedure) [code = [id number]] [facility] Future Scheduled Test 1972 00:00:00 Screening for malignant neoplasm of colon (procedure) [code = 883536378] [facility] Future Scheduled Test 1972 00:00:00 Screening for malignant neoplasm of colon (procedure) [code = 957869517] [facility] Future Scheduled Test 1972 00:00:00 Screening for malignant neoplasm of colon (procedure) [code = 728296218] [facility] Future Scheduled Test 1972 00:00:00 Sigmoidoscopy [code = Sigmoidoscopy] [facility] Future Scheduled Test 1972 00:00:00 Screening for malignant neoplasm of breast (procedure) [code = 791650726] [facility] Future Scheduled Test 1972 00:00:00 CT Colonography (combo) [code = CT Colonography (combo)] [facility] Future Scheduled Test 1972 00:00:00 Screening for malignant neoplasm of colon (procedure) [code = [id number]] [facility] Future Scheduled Test 1972 00:00:00 Screening for malignant neoplasm of colon (procedure) [code = 154010501] [facility] Future Scheduled Test 1972 00:00:00 Screening for malignant neoplasm of colon (procedure) [code = 017236364] [facility] Future Scheduled Test 1972 00:00:00 Screening for malignant neoplasm of colon (procedure) [code = 940464314] [facility] Future Scheduled Test 1972 00:00:00 Sigmoidoscopy [code = Sigmoidoscopy] [facility] Future Scheduled Test 1972 00:00:00 Screening for malignant neoplasm of breast (procedure) [code = 242374466] [facility] Future Scheduled Test 1972 00:00:00 CT Colonography (combo) [code = CT Colonography (combo)] [facility] Future Scheduled Test 1972 00:00:00 Screening for malignant neoplasm of colon (procedure) [code = 158410785] [facility] Future Scheduled Test 1972 00:00:00 Screening for malignant neoplasm of colon (procedure) [code = 078638359] [facility] Future Scheduled Test 1972 00:00:00 Screening for malignant neoplasm of colon (procedure) [code = 614917723] [facility] Future Scheduled Test 1972 00:00:00 Screening for malignant neoplasm of colon (procedure) [code = 837841905] [facility] Future Scheduled Test 1972 00:00:00 Sigmoidoscopy [code = Sigmoidoscopy] [facility] Future Scheduled Test 1972 00:00:00 Screening for malignant neoplasm of breast (procedure) [code = 537611588] [facility] Future Scheduled Test 1972 00:00:00 CT Colonography (combo) [code = CT Colonography (combo)] [facility] Future Scheduled Test 1972 00:00:00 Screening for malignant neoplasm of colon (procedure) [code = 401840214] [facility] Future Scheduled Test 1972 00:00:00 Screening for malignant neoplasm of colon (procedure) [code = 330574469] [facility] Future Scheduled Test 1972 00:00:00 Screening for malignant neoplasm of colon (procedure) [code = 981336695] [facility] Future Scheduled Test 1972 00:00:00 Screening for malignant neoplasm of colon (procedure) [code = 184895814] [facility] Future Scheduled Test 1972 00:00:00 Screening for malignant neoplasm of breast (procedure) [code = 362906182] [facility] Future Scheduled Test 1972 00:00:00 CT Colonography (combo) [code = CT Colonography (combo)] [facility] Future Scheduled Test 1972 00:00:00 Sigmoidoscopy [code = Sigmoidoscopy] [facility] Future Scheduled Test 1972 00:00:00 Screening for malignant neoplasm of colon (procedure) [code = 290518779] [facility] Future Scheduled Test 1972 00:00:00 Screening for malignant neoplasm of colon (procedure) [code = 832992680] [facility] Future Scheduled Test 1972 00:00:00 Screening for malignant neoplasm of colon (procedure) [code = 432291501] [facility] Future Scheduled Test 1972 00:00:00 Screening for malignant neoplasm of colon (procedure) [code = 167970994] [facility] Future Scheduled Test 1972 00:00:00 Sigmoidoscopy [code = Sigmoidoscopy] [facility] Future Scheduled Test 1972 00:00:00 Screening for malignant neoplasm of breast (procedure) [code = 682644527] [facility] Future Scheduled Test 1972 00:00:00 CT Colonography (combo) [code = CT Colonography (combo)] [facility] Future Scheduled Test 1972 00:00:00 Screening for malignant neoplasm of colon (procedure) [code = 152597065] [facility] Future Scheduled Test 1972 00:00:00 Screening for malignant neoplasm of colon (procedure) [code = 573245746] [facility] Future Scheduled Test 1972 00:00:00 Screening for malignant neoplasm of colon (procedure) [code = 857208347] [facility] Future Scheduled Test 1972 00:00:00 Screening for malignant neoplasm of colon (procedure) [code = 253190253] [facility] Future Scheduled Test 1972 00:00:00 Sigmoidoscopy [code = Sigmoidoscopy] [facility] Future Scheduled Test 1972 00:00:00 Screening for malignant neoplasm of breast (procedure) [code = 823305434] [facility] Future Scheduled Test 1972 00:00:00 CT Colonography (combo) [code = CT Colonography (combo)] [facility] Future Scheduled Test 1972 00:00:00 Screening for malignant neoplasm of colon (procedure) [code = 421683099] [facility] Future Scheduled Test 1972 00:00:00 Screening for malignant neoplasm of colon (procedure) [code = 088229171] [facility] Future Scheduled Test 1972 00:00:00 Screening for malignant neoplasm of colon (procedure) [code = 549957445] [facility] Future Scheduled Test 1972 00:00:00 Screening for malignant neoplasm of colon (procedure) [code = [id number]] [facility] Future Scheduled Test 1972 00:00:00 Sigmoidoscopy [code = Sigmoidoscopy] [facility] Future Scheduled Test 1972 00:00:00 Screening for malignant neoplasm of breast (procedure) [code = 058888593] [facility] Future Scheduled Test 1972 00:00:00 CT Colonography (combo) [code = CT Colonography (combo)] [facility] Future Scheduled Test 1972 00:00:00 Screening for malignant neoplasm of colon (procedure) [code = 964749102] [facility] Future Scheduled Test 1972 00:00:00 Screening for malignant neoplasm of colon (procedure) [code = 485182759] [facility] Future Scheduled Test 1972 00:00:00 Screening for malignant neoplasm of colon (procedure) [code = 196305041] [facility] Future Scheduled Test 1972 00:00:00 Screening for malignant neoplasm of colon (procedure) [code = 113476270] [facility] Future Scheduled Test 1972 00:00:00 Sigmoidoscopy [code = Sigmoidoscopy] [facility] Future Scheduled Test 1972 00:00:00 Screening for malignant neoplasm of breast (procedure) [code = 724656172] [facility] Future Scheduled Test 1972 00:00:00 CT Colonography (combo) [code = CT Colonography (combo)] [facility] Future Scheduled Test 1972 00:00:00 Screening for malignant neoplasm of colon (procedure) [code = [id number]] [facility] Future Scheduled Test 1972 00:00:00 Screening for malignant neoplasm of colon (procedure) [code = 332431953] [facility] Future Scheduled Test 1972 00:00:00 Screening for malignant neoplasm of colon (procedure) [code = 992356112] [facility] Future Scheduled Test 1972 00:00:00 Screening for malignant neoplasm of colon (procedure) [code = 777202571] [facility] Future Scheduled Test 1972 00:00:00 Sigmoidoscopy [code = Sigmoidoscopy] [facility] Future Scheduled Test 1972 00:00:00 Screening for malignant neoplasm of breast (procedure) [code = 534833056] [facility] Future Scheduled Test 1972 00:00:00 CT Colonography (combo) [code = CT Colonography (combo)] [facility] Future Scheduled Test 1972 00:00:00 Screening for malignant neoplasm of colon (procedure) [code = 296068822] [facility] Future Scheduled Test 1972 00:00:00 Screening for malignant neoplasm of colon (procedure) [code = 409959302] [facility] Future Scheduled Test 1972 00:00:00 Screening for malignant neoplasm of colon (procedure) [code = 449866775] [facility] Future Scheduled Test 1972 00:00:00 Screening for malignant neoplasm of colon (procedure) [code = 952988306] [facility] Future Scheduled Test 1972 00:00:00 Sigmoidoscopy [code = Sigmoidoscopy] [facility] Future Scheduled Test 1972 00:00:00 Screening for malignant neoplasm of breast (procedure) [code = 069743373] [facility] Future Scheduled Test 1972 00:00:00 CT Colonography (combo) [code = CT Colonography (combo)] [facility] Future Scheduled Test 1972 00:00:00 Screening for malignant neoplasm of colon (procedure) [code = 725248875] [facility] Future Scheduled Test 1972 00:00:00 Screening for malignant neoplasm of colon (procedure) [code = 754235755] [facility] Future Scheduled Test 1972 00:00:00 Screening for malignant neoplasm of breast (procedure) [code = 242820495] [facility] Future Scheduled Test 1972 00:00:00 Screening for malignant neoplasm of colon (procedure) [code = 991696433] [facility] Future Scheduled Test 1972 00:00:00 CT Colonography (combo) [code = CT Colonography (combo)] [facility] Future Scheduled Test 1972 00:00:00 Screening for malignant neoplasm of colon (procedure) [code = 415446747] [facility] Future Scheduled Test 1972 00:00:00 Screening for malignant neoplasm of colon (procedure) [code = 944964542] [facility] Future Scheduled Test 1972 00:00:00 Screening for malignant neoplasm of colon (procedure) [code = 356397295] [facility] Future Scheduled Test 1972 00:00:00 Screening for malignant neoplasm of colon (procedure) [code = 162859616] [facility] Future Scheduled Test 1972 00:00:00 Sigmoidoscopy [code = Sigmoidoscopy] [facility] Future Scheduled Test 1972 00:00:00 Screening for malignant neoplasm of colon (procedure) [code = 057567146] [facility] Future Scheduled Test 1972 00:00:00 Sigmoidoscopy [code = Sigmoidoscopy] [facility] Future Scheduled Test 1972 00:00:00 Screening for malignant neoplasm of breast (procedure) [code = 381912011] [facility] Future Scheduled Test 1972 00:00:00 CT Colonography (combo) [code = CT Colonography (combo)] [facility] Future Scheduled Test 1972 00:00:00 Screening for malignant neoplasm of colon (procedure) [code = 727070260] [facility] Future Scheduled Test 1972 00:00:00 Screening for malignant neoplasm of colon (procedure) [code = 309552310] [facility] Future Scheduled Test 1972 00:00:00 Screening for malignant neoplasm of colon (procedure) [code = 868217400] [facility] Future Scheduled Test 1972 00:00:00 Screening for malignant neoplasm of colon (procedure) [code = 083325599] [facility] Future Scheduled Test 1972 00:00:00 Sigmoidoscopy [code = Sigmoidoscopy] [facility] Future Scheduled Test 1972 00:00:00 Screening for malignant neoplasm of breast (procedure) [code = 805296378] [facility] Future Scheduled Test 1972 00:00:00 CT Colonography (combo) [code = CT Colonography (combo)] [facility] Future Scheduled Test 1972 00:00:00 Screening for malignant neoplasm of colon (procedure) [code = 384779722] [facility] Future Scheduled Test 1972 00:00:00 Screening for malignant neoplasm of colon (procedure) [code = 760488342] [facility] Future Scheduled Test 1972 00:00:00 Screening for malignant neoplasm of colon (procedure) [code = 425281411] [facility] Future Scheduled Test 1972 00:00:00 Screening for malignant neoplasm of colon (procedure) [code = 109424547] [facility] Future Scheduled Test 1972 00:00:00 Sigmoidoscopy [code = Sigmoidoscopy] [facility] Future Scheduled Test 1972 00:00:00 Screening for malignant neoplasm of breast (procedure) [code = 500051537] [facility] Future Scheduled Test 1972 00:00:00 CT Colonography (combo) [code = CT Colonography (combo)] [facility] Future Scheduled Test 1972 00:00:00 Screening for malignant neoplasm of colon (procedure) [code = 286732449] [facility] Future Scheduled Test 1972 00:00:00 Screening for malignant neoplasm of colon (procedure) [code = 150656352] [facility] Future Scheduled Test 1972 00:00:00 Screening for malignant neoplasm of colon (procedure) [code = 821206819] [facility] Future Scheduled Test 1972 00:00:00 Screening for malignant neoplasm of colon (procedure) [code = 341213395] [facility] Future Scheduled Test 1972 00:00:00 Sigmoidoscopy [code = Sigmoidoscopy] [facility] Future Scheduled Test 1972 00:00:00 Screening for malignant neoplasm of breast (procedure) [code = 736952964] [facility] Future Scheduled Test 1972 00:00:00 CT Colonography (combo) [code = CT Colonography (combo)] [facility] Future Scheduled Test 1972 00:00:00 Screening for malignant neoplasm of colon (procedure) [code = 234713044] [facility] Future Scheduled Test 1972 00:00:00 Screening for malignant neoplasm of colon (procedure) [code = 523647126] [facility] Future Scheduled Test 1972 00:00:00 Screening for malignant neoplasm of colon (procedure) [code = 143737484] [facility] Future Scheduled Test 1972 00:00:00 Screening for malignant neoplasm of colon (procedure) [code = 127518645] [facility] Future Scheduled Test 1972 00:00:00 Sigmoidoscopy [code = Sigmoidoscopy] [facility] Future Scheduled Test 1972 00:00:00 Screening for malignant neoplasm of breast (procedure) [code = 083299157] [facility] Future Scheduled Test 1972 00:00:00 CT Colonography (combo) [code = CT Colonography (combo)] [facility] Future Scheduled Test 1972 00:00:00 Screening for malignant neoplasm of colon (procedure) [code = 514274947] [facility] Future Scheduled Test 1972 00:00:00 Screening for malignant neoplasm of colon (procedure) [code = 084605562] [facility] Future Scheduled Test 1972 00:00:00 Screening for malignant neoplasm of colon (procedure) [code = 336903315] [facility] Future Scheduled Test 1972 00:00:00 Screening for malignant neoplasm of colon (procedure) [code = 723492271] [facility] Future Scheduled Test 1972 00:00:00 Sigmoidoscopy [code = Sigmoidoscopy] [facility] Future Scheduled Test 1972 00:00:00 Screening for malignant neoplasm of breast (procedure) [code = 942648457] [facility] Future Scheduled Test 1972 00:00:00 CT Colonography (combo) [code = CT Colonography (combo)] [facility] Future Scheduled Test 1972 00:00:00 Screening for malignant neoplasm of colon (procedure) [code = 118437731] [facility] Future Scheduled Test 1972 00:00:00 Screening for malignant neoplasm of colon (procedure) [code = 071984998] [facility] Future Scheduled Test 1972 00:00:00 Screening for malignant neoplasm of colon (procedure) [code = 595259810] [facility] Future Scheduled Test 1972 00:00:00 Screening for malignant neoplasm of colon (procedure) [code = 685416426] [facility] Future Scheduled Test 1972 00:00:00 Sigmoidoscopy [code = Sigmoidoscopy] [facility] Future Scheduled Test 1972 00:00:00 Screening for malignant neoplasm of breast (procedure) [code = 951413043] [facility] Future Scheduled Test 1972 00:00:00 CT Colonography (combo) [code = CT Colonography (combo)] [facility] Future Scheduled Test 1972 00:00:00 Screening for malignant neoplasm of colon (procedure) [code = 526318641] [facility] Future Scheduled Test 1972 00:00:00 Screening for malignant neoplasm of colon (procedure) [code = 088796886] [facility] Future Scheduled Test 1972 00:00:00 Screening for malignant neoplasm of colon (procedure) [code = 462063136] [facility] Future Scheduled Test 1972 00:00:00 Screening for malignant neoplasm of colon (procedure) [code = 512632472] [facility] Future Scheduled Test 1972 00:00:00 Sigmoidoscopy [code = Sigmoidoscopy] [facility] Future Scheduled Test 1972 00:00:00 Screening for malignant neoplasm of breast (procedure) [code = 770627597] [facility] Future Scheduled Test 1972 00:00:00 CT Colonography (combo) [code = CT Colonography (combo)] [facility] Future Scheduled Test 1972 00:00:00 Screening for malignant neoplasm of colon (procedure) [code = 043367816] [facility] Future Scheduled Test 1972 00:00:00 Screening for malignant neoplasm of colon (procedure) [code = 093224348] [facility] Future Scheduled Test 1972 00:00:00 Screening for malignant neoplasm of colon (procedure) [code = 257837623] [facility] Future Scheduled Test 1972 00:00:00 Screening for malignant neoplasm of colon (procedure) [code = 049798961] [facility] Future Scheduled Test 1972 00:00:00 Sigmoidoscopy [code = Sigmoidoscopy] [facility] Future Scheduled Test 1972 00:00:00 Screening for malignant neoplasm of breast (procedure) [code = 429954107] [facility] Future Scheduled Test 1972 00:00:00 CT Colonography (combo) [code = CT Colonography (combo)] [facility] Future Scheduled Test 1972 00:00:00 Screening for malignant neoplasm of colon (procedure) [code = 230027476] [facility] Future Scheduled Test 1972 00:00:00 Screening for malignant neoplasm of colon (procedure) [code = 732082666] [facility] Future Scheduled Test 1972 00:00:00 Screening for malignant neoplasm of colon (procedure) [code = 086827465] [facility] Future Scheduled Test 1972 00:00:00 Screening for malignant neoplasm of colon (procedure) [code = 719049533] [facility] Future Scheduled Test 1972 00:00:00 Sigmoidoscopy [code = Sigmoidoscopy] [facility] Future Scheduled Test 1972 00:00:00 Screening for malignant neoplasm of breast (procedure) [code = 968440283] [facility] Future Scheduled Test 1972 00:00:00 CT Colonography (combo) [code = CT Colonography (combo)] [facility] Future Scheduled Test 1972 00:00:00 Screening for malignant neoplasm of colon (procedure) [code = 590893875] [facility] Future Scheduled Test 1972 00:00:00 Screening for malignant neoplasm of colon (procedure) [code = 648824717] [facility] Future Scheduled Test 1972 00:00:00 Screening for malignant neoplasm of colon (procedure) [code = 239304978] [facility] Future Scheduled Test 1972 00:00:00 Screening for malignant neoplasm of colon (procedure) [code = 244479049] [facility] Future Scheduled Test 1972 00:00:00 Sigmoidoscopy [code = Sigmoidoscopy] [facility] Future Scheduled Test 1972 00:00:00 Screening for malignant neoplasm of breast (procedure) [code = 071455372] [facility] Future Scheduled Test 1972 00:00:00 CT Colonography (combo) [code = CT Colonography (combo)] [facility] Future Scheduled Test 1972 00:00:00 Screening for malignant neoplasm of colon (procedure) [code = 607543710] [facility] Future Scheduled Test 1972 00:00:00 Screening for malignant neoplasm of colon (procedure) [code = 311154141] [facility] Future Scheduled Test 1972 00:00:00 Screening for malignant neoplasm of colon (procedure) [code = 587904784] [facility] Future Scheduled Test 1972 00:00:00 Screening for malignant neoplasm of colon (procedure) [code = 799546254] [facility] Future Scheduled Test 1972 00:00:00 Sigmoidoscopy [code = Sigmoidoscopy] [facility] Future Scheduled Test 1972 00:00:00 Screening for malignant neoplasm of breast (procedure) [code = 862589600] [facility] Future Scheduled Test 1972 00:00:00 CT Colonography (combo) [code = CT Colonography (combo)] [facility] Future Scheduled Test 1972 00:00:00 Screening for malignant neoplasm of colon (procedure) [code = 867194643] [facility] Future Scheduled Test 1972 00:00:00 Screening for malignant neoplasm of colon (procedure) [code = 816921320] [facility] Future Scheduled Test 1972 00:00:00 Screening for malignant neoplasm of colon (procedure) [code = 293070476] [facility] Future Scheduled Test 1972 00:00:00 Screening for malignant neoplasm of colon (procedure) [code = 744314784] [facility] Future Scheduled Test 1972 00:00:00 Sigmoidoscopy [code = Sigmoidoscopy] [facility] Future Scheduled Test 1972 00:00:00 Screening for malignant neoplasm of breast (procedure) [code = 259904916] [facility] Future Scheduled Test 1972 00:00:00 CT Colonography (combo) [code = CT Colonography (combo)] [facility] Future Scheduled Test 1972 00:00:00 Screening for malignant neoplasm of colon (procedure) [code = 469507068] [facility] Future Scheduled Test 1972 00:00:00 Screening for malignant neoplasm of colon (procedure) [code = 750735818] [facility] Future Scheduled Test 1972 00:00:00 Screening for malignant neoplasm of colon (procedure) [code = 573077846] [facility] Future Scheduled Test 1972 00:00:00 Screening for malignant neoplasm of colon (procedure) [code = 821353479] [facility] Future Scheduled Test 1972 00:00:00 Sigmoidoscopy [code = Sigmoidoscopy] [facility] Future Scheduled Test 1972 00:00:00 Screening for malignant neoplasm of breast (procedure) [code = 445198280] [facility] Future Scheduled Test 1972 00:00:00 CT Colonography (combo) [code = CT Colonography (combo)] [facility] Future Scheduled Test 1972 00:00:00 Screening for malignant neoplasm of colon (procedure) [code = 620923200] [facility] Future Scheduled Test 1972 00:00:00 Screening for malignant neoplasm of colon (procedure) [code = 546982536] [facility] Future Scheduled Test 1972 00:00:00 Screening for malignant neoplasm of colon (procedure) [code = 821259565] [facility] Future Scheduled Test 1972 00:00:00 Screening for malignant neoplasm of colon (procedure) [code = 911894381] [facility] Future Scheduled Test 1972 00:00:00 Sigmoidoscopy [code = Sigmoidoscopy] [facility] Future Scheduled Test 1972 00:00:00 Screening for malignant neoplasm of breast (procedure) [code = 536388390] [facility] Future Scheduled Test 1972 00:00:00 CT Colonography (combo) [code = CT Colonography (combo)] [facility] Future Scheduled Test 1972 00:00:00 Screening for malignant neoplasm of colon (procedure) [code = 909368141] [facility] Future Scheduled Test 1972 00:00:00 Screening for malignant neoplasm of colon (procedure) [code = 613742167] [facility] Future Scheduled Test 1972 00:00:00 Screening for malignant neoplasm of colon (procedure) [code = 563966653] [facility] Future Scheduled Test 1972 00:00:00 Screening for malignant neoplasm of colon (procedure) [code = 929786786] [facility] Future Scheduled Test 1972 00:00:00 Sigmoidoscopy [code = Sigmoidoscopy] [facility] Future Scheduled Test 1972 00:00:00 Screening for malignant neoplasm of breast (procedure) [code = 160462518] [facility] Future Scheduled Test 1972 00:00:00 CT Colonography (combo) [code = CT Colonography (combo)] [facility] Future Scheduled Test 1972 00:00:00 Screening for malignant neoplasm of colon (procedure) [code = 052051922] [facility] Future Scheduled Test 1972 00:00:00 Screening for malignant neoplasm of colon (procedure) [code = 295331868] [facility] Future Scheduled Test 1972 00:00:00 Screening for malignant neoplasm of colon (procedure) [code = 216110684] [facility] Future Scheduled Test 1972 00:00:00 Screening for malignant neoplasm of colon (procedure) [code = 474068789] [facility] Future Scheduled Test 1972 00:00:00 Sigmoidoscopy [code = Sigmoidoscopy] [facility] Future Scheduled Test 1972 00:00:00 Screening for malignant neoplasm of breast (procedure) [code = 850055816] [facility] Future Scheduled Test 1972 00:00:00 CT Colonography (combo) [code = CT Colonography (combo)] [facility] Future Scheduled Test 1972 00:00:00 Screening for malignant neoplasm of colon (procedure) [code = 123425649] [facility] Future Scheduled Test 1972 00:00:00 Screening for malignant neoplasm of colon (procedure) [code = 669909861] [facility] Future Scheduled Test 1972 00:00:00 Screening for malignant neoplasm of colon (procedure) [code = 543663757] [facility] Future Scheduled Test 1972 00:00:00 Screening for malignant neoplasm of colon (procedure) [code = 550566836] [facility] Future Scheduled Test 1972 00:00:00 Sigmoidoscopy [code = Sigmoidoscopy] [facility] Future Scheduled Test 1972 00:00:00 Screening for malignant neoplasm of breast (procedure) [code = 122420863] [facility] Future Scheduled Test 1972 00:00:00 CT Colonography (combo) [code = CT Colonography (combo)] [facility] Future Scheduled Test 1972 00:00:00 Screening for malignant neoplasm of colon (procedure) [code = 743166601] [facility] Future Scheduled Test 1972 00:00:00 Screening for malignant neoplasm of colon (procedure) [code = 589504695] [facility] Future Scheduled Test 1972 00:00:00 Screening for malignant neoplasm of colon (procedure) [code = 802665107] [facility] Future Scheduled Test 1972 00:00:00 Screening for malignant neoplasm of colon (procedure) [code = 105201462] [facility] Future Scheduled Test 1972 00:00:00 Sigmoidoscopy [code = Sigmoidoscopy] [facility] Future Scheduled Test 1972 00:00:00 Screening for malignant neoplasm of breast (procedure) [code = 663537500] [facility] Future Scheduled Test 1972 00:00:00 CT Colonography (combo) [code = CT Colonography (combo)] [facility] Future Scheduled Test 1972 00:00:00 Screening for malignant neoplasm of colon (procedure) [code = 506152132] [facility] Future Scheduled Test 1972 00:00:00 Screening for malignant neoplasm of colon (procedure) [code = 092779510] [facility] Future Scheduled Test 1972 00:00:00 Screening for malignant neoplasm of colon (procedure) [code = 933498330] [facility] Future Scheduled Test 1972 00:00:00 Screening for malignant neoplasm of colon (procedure) [code = 664053726] [facility] Future Scheduled Test 1972 00:00:00 Sigmoidoscopy [code = Sigmoidoscopy] [facility] Future Scheduled Test 1972 00:00:00 Screening for malignant neoplasm of breast (procedure) [code = 900757700] [facility] Future Scheduled Test 1972 00:00:00 CT Colonography (combo) [code = CT Colonography (combo)] [facility] Future Scheduled Test 1972 00:00:00 Screening for malignant neoplasm of colon (procedure) [code = 920447190] [facility] Future Scheduled Test 1972 00:00:00 Screening for malignant neoplasm of colon (procedure) [code = 249525140] [facility] Future Scheduled Test 1972 00:00:00 Screening for malignant neoplasm of colon (procedure) [code = 023213545] [facility] Future Scheduled Test 1972 00:00:00 Screening for malignant neoplasm of colon (procedure) [code = 646304261] [facility] Future Scheduled Test 1972 00:00:00 Sigmoidoscopy [code = Sigmoidoscopy] [facility] Goal Plan of Care Not e [code = 24415-5] Goal Plan of Care Not e [code = 38808-8] Goal Plan of Care Not e [code = 71295-0] Goal Plan of Care Not e [code = 31885-4] Goal Plan of Care Not e [code = 50660-2] Goal Plan of Care Not e [code = 45085-7] Goal Plan of Care Not e [code = 29907-9] Goal Plan of Care Not e [code = 61044-0] Goal Plan of Care Not e [code = 31163-8] Goal Plan of Care Not e [code = 80385-8] Goal Plan of Care Not e [code = 39313-9] Goal Plan of Care Not e [code = 31475-7] Goal Plan of Care Not e [code = 63431-3] Goal Plan of Care Not e [code = 57661-5] Goal Plan of Care Not e [code = 53277-0] Goal Plan of Care Not e [code = 97875-7] Goal Plan of Care Not e [code = 08568-5] Goal Plan of Care Not e [code = 73525-1] Goal Plan of Care Not e [code = 31187-6] Goal Plan of Care Not e [code = 12863-5] Goal Plan of Care Not e [code = 65074-4] Goal Plan of Care Not e [code = 99111-3] Goal Plan of Care Not e [code = 58997-9] Goal Plan of Care Not e [code = 76662-3] Goal Plan of Care Not e [code = 49149-5] Goal Plan of Care Not e [code = 34325-7] Goal Plan of Care Not e [code = 60168-2] Goal Plan of Care Not e [code = 13644-3] Goal Plan of Care Not e [code = 04069-3] Goal Plan of Care Not e [code = 01111-0] Goal Plan of Care Not e [code = 15855-5] Goal Plan of Care Not e [code = 79035-6] Goal Plan of Care Not e [code = 57798-6] Goal Plan of Care Not e [code = 56902-4] Goal Plan of Care Not e [code = 77098-9] Encounters Start Date/Time End Date/Time Encounter Type Admission Type Attending [facility] Care Department Encounter ID Source 2023-09-07 10:11:03 Inpatient PANKAJ PARRISH [facility] [id number] [facility] 2023-09-05 10:08:27 Inpatient PANKAJ PARRISH SLEH SLE [id number] [facility] 2023-09-05 10:05:12 Inpatient PANKAJ PARRISH SLEH SLE [id number] [facility] 2023-09-04 04:51:30 Inpatient PANKAJ PARRISH SLERigoberto SLE [id number] [facility] 2023-09-04 04:14:55 Inpatient PANKAJ PARRISH SLE SLE [id number] [facility] 2023-09-04 03:08:45 Inpatient PANKAJ PARRISH SLE SLE [id number] [facility] 2023-09-04 02:36:28 Inpatient PANKAJ PARRISH SLE SLE [id number] [facility] 2023-06-16 09:32:36 Inpatient AYDEE DICKENS SLE SLE [id number] [facility] 2023-06-16 09:32:09 Inpatient AYDEE DICKENS SLE SLE [id number] [facility] 2023-06-16 09:31:53 Inpatient AYDEE DICKENS SLEH SLE [id number] [facility] 2023-06-14 07:46:02 Inpatient AYDEE DICKENS SLEH SLE [id number] [facility] 2023-06-14 07:39:22 Inpatient AYDEE DICKENS SLEH SLEH [id number] [facility] 2023-06-14 06:38:38 Inpatient AYDEE DICKENS SLEH SLE [id number] [facility] 2023-06-13 13:44:18 Inpatient CARA MURPHY SLE SLE [id number] [facility] 2023-06-13 11:45:24 Inpatient AYDEE DICKENS SLE SLE [id number] [facility] 2023-05-08 11:21:00 Outpatient ADAM BRANTLEY [facility] Surgery [id number] [facility] 2023-04-01 14:26:29 Inpatient ER THOMAS LOZOYA [facility] [id number] [facility] 2023-03-31 09:24:52 Inpatient ER MARIAH ALDRIDGE [facility] [id number] [facility] 2021-05-20 18:48:[address] [facility] [id number] [facility] 2021-05-20 12:43:[address] [facility] [id number] [facility] 2023-11-10 09:30:00 2023-11-10 09:30:00 Outpatient MYLA MIJARES [id number] [facility] 2023-10-05 11:30:00 2023-10-05 11:30:00 Outpatient GUSTAVO DELANEY [id number] [facility] 2023-09-16 00:00:00 2023-09-16 00:00:00 Outpatient GUSTAVO DELANEY [id number] [facility] 2023-09-16 00:00:00 2023-09-16 00:00:00 Outpatient GUSTAVO DELANEY [id number] [facility] 2023-09-16 00:00:00 2023-09-16 00:00:00 Outpatient GUSTAVO DELANEY [id number] [facility] 2023-09-14 00:00:00 2023-09-14 00:00:00 Outpatient SHY GUILLEN [id number] [facility] 2023-09-14 00:00:00 2023-09-14 00:00:00 Outpatient SHY GUILLEN [id number] [facility] 2023-09-11 11:00:00 2023-09-11 11:00:00 Outpatient YONATAN LORENZO [id number] [facility] 2023-09-09 00:00:00 2023-09-09 00:00:00 Outpatient CYNTHIA MTZ [id number] [facility] 2023-09-04 00:14:00 2023-09-08 10:51:00 Hospital Encounter ER London Loyola, Pankaj Fry, Selin Sosa [facility] [id number] [facility] 2023-09-04 00:14:00 2023-09-08 10:51:00 Inpatient ER SELIN FERRER YUNG Neurosurger y [id number] [facility] 2023-09-04 00:14:00 2023-09-08 10:51:00 Hospital Encounter London Loyola, Pankaj Fry, Selin Sosa [facility] [id number] [facility] 2023-09-07 18:41:43 2023-09-07 18:41:43 Outpatient SELIN MANE [facility] [id number] [facility] 2023-09-03 20:52:00 2023-09-03 23:44:00 emergency [facility] [id number] 2023-09-03 20:52:00 2023-09-03 23:44:00 Emergency ER JUANY [facility] [id number] [facility] 2023-09-02 00:00:00 2023-09-02 00:00:00 Outpatient TIFFANY MONTANEZ [id number] [facility] 2023-09-01 15:30:00 2023-09-01 15:30:00 Outpatient DEMETRIUS TOBAR [id number] [facility] 2023-08-19 00:00:00 2023-08-19 00:00:00 Outpatient KETAN CALVILLO [facility] [id number] [facility] 2023-08-13 00:00:00 2023-08-13 00:00:00 Orders Only Ketan Scruggs [facility] [id number] [facility] 2023-08-13 00:00:00 2023-08-13 00:00:00 Orders Only Ketan Scruggs [facility] [id number] [facility] 2023-08-12 13:49:00 2023-08-12 16:12:00 Emergency X BRIAN BRYAN [facility] ERT [id number] [facility] 2023-08-12 13:49:00 2023-08-12 16:12:00 Emergency Brian Bryan [facility] [id number] [facility] 2023-06-13 03:43:00 2023-06-16 19:45:00 Hospital Encounter ER Cara Burgess Sahar [facility] [id number] [facility] 2023-06-13 03:43:00 2023-06-16 19:45:00 Inpatient ER AYDEE GO [facility] Internal Med [id number] [facility] 2023-06-13 03:43:00 2023-06-16 19:45:00 Hospital Encounter Cara Burgess Sahar [facility] [id number] [facility] 2023-06-15 00:00:00 2023-06-15 00:00:00 Orders Only System, Provider Not In [facility] [id number] [facility] 2023-06-15 00:00:00 2023-06-15 00:00:00 Orders Only System, Provider Not In [facility] [id number] [facility] 2023-06-13 16:30:06 2023-06-13 16:30:06 Outpatient EL AYDEE GO [facility] [id number] [facility] 2023-06-13 00:00:00 2023-06-13 00:00:00 Orders Only [facility] [id number] [facility] 2023-06-13 00:00:00 2023-06-13 00:00:00 Travel [facility] [id number] [facility] 2023-06-13 00:00:00 2023-06-13 00:00:00 Orders Only [facility] [id number] [facility] 2023-06-13 00:00:00 2023-06-13 00:00:00 Travel [facility] [id number] [facility] 2023-06-12 00:00:00 2023-06-12 00:00:00 Telephone Dallas Gomez [facility] [id number] [facility] 2023-06-12 00:00:00 2023-06-12 00:00:00 Telephone Dallas Gomez [facility] [id number] [facility] 2023-05-28 06:45:00 2023-06-04 17:36:00 Hospital Encounter Adam Brantley [facility] [id number] [facility] 2023-05-28 06:45:00 2023-06-04 17:36:00 [facility] [id number] [facility] 2023-05-28 06:45:00 2023-06-04 17:36:00 Hospital Encounter Adam Garcia [facility] [id number] [facility] 2023-06-01 09:10:00 2023-06-01 13:00:00 Anesthesia Event Harry Newsome Mujtaba Ahmad [facility] [id number] [facility] 2023-06-01 09:10:00 2023-06-01 13:00:00 Anesthesia Event Harry Newsome Mujtaba Ahmad [facility] [id number] [facility] 2023-06-01 09:00:00 2023-06-01 11:30:00 Surgery Adam Garcia [facility] [id number] [facility] 2023-06-01 09:00:00 2023-06-01 11:30:00 Surgery Adam Garcia [facility] [id number] [facility] 2023-06-01 09:47:57 2023-06-01 09:47:57 Outpatient ADAM BRANTLEY [facility] [id number] [facility] 2023-06-01 09:40:34 2023-06-01 09:40:34 Outpatient ADAM BRANTLEY [facility] [id number] [facility] 2023-05-31 09:25:55 2023-05-31 23:59:00 Inpatient ADAM BRANTLEY [facility] [id number] [facility] 2023-05-31 09:00:00 2023-05-31 23:59:00 Hospital Encounter Adam Garcia [facility] [id number] [facility] 2023-05-31 09:00:00 2023-05-31 23:59:00 Hospital Encounter Adam Garcia [facility] [id number] [facility] 2023-05-28 18:15:29 2023-05-28 18:15:29 Outpatient ADAM BRANTLEY [facility] [id number] [facility] 2023-05-28 08:30:00 2023-05-28 11:54:00 Anesthesia Event Yue Bui [facility] [id number] [facility] 2023-05-28 08:30:00 2023-05-28 11:54:00 Anesthesia Event Ramya, Yue Dumont [facility] [id number] [facility] 2023-05-28 11:41:14 2023-05-28 11:41:14 Outpatient ADAM BRANTLEY [facility] [id number] [facility] 2023-05-28 08:30:00 2023-05-28 11:00:00 Surgery Adam Garcia [facility] [id number] [facility] 2023-05-28 08:30:00 2023-05-28 11:00:00 Surgery Adam Garcia [facility] [id number] [facility] 2023-05-28 10:00:47 2023-05-28 10:00:47 Outpatient ADAM BRANTLEY SLERigoberto [facility] [id number] [facility] 2023-05-28 00:00:00 2023-05-28 00:00:00 Travel [facility] [id number] [facility] 2023-05-28 00:00:00 2023-05-28 00:00:00 Travel [facility] [id number] [facility] 2023-05-26 09:00:00 2023-05-26 09:00:00 Hospital Encounter Adam Garcia [facility] [id number] [facility] 2023-05-26 09:00:00 2023-05-26 09:00:00 Hospital Encounter Adam Garcia [facility] [id number] [facility] 2023-05-26 00:00:00 2023-05-26 00:00:00 Outpatient ADAM BRANTLEY SLERigoberto [facility] [id number] [facility] 2023-05-26 00:00:00 2023-05-26 00:00:00 Outpatient NICOLETTE SLERigoberto [facility] [id number] [facility] 2023-05-26 00:00:00 2023-05-26 00:00:00 Travel [facility] [id number] [facility] 2023-05-26 00:00:00 2023-05-26 00:00:00 Travel [facility] [id number] [facility] 2023-05-13 11:43:03 2023-05-13 11:43:03 Outpatient SFA BHARAT [id number] 1025 Adria Martínez 2023-05-12 00:00:00 2023-05-12 00:00:00 Orders Only Adam Garcia [facility] [id number] [facility] 2023-05-12 00:00:00 2023-05-12 00:00:00 Orders Only Adam Garcia [facility] [id number] [facility] 2023-05-08 14:11:21 2023-05-08 14:11:21 Outpatient [facility] 1020 Adria Martínez 2023-03-29 19:25:00 2023-04-02 20:48:00 Hospital Encounter ER Connie Davey, Mariah Lozoya, Thomas Louisemacho [facility] [id number] [facility] 2023-03-29 19:25:00 2023-04-02 20:48:00 Inpatient ER THOMAS LOZOYA Neurology [id number] [facility] 2023-03-29 19:25:00 2023-04-02 20:48:00 Hospital Encounter Connie Davey, [facility]iah [facility]oz[facility] [id number] [facility] 2023-03-31 08:32:56 2023-03-31 00:00:00 Inpatient ER MARIAH ALDRIDGE SLE [id number] [facility] 2023-03-30 10:24:12 2023-03-30 23:59:00 Outpatient ER CONNIE DAVEY SLE [id number] [facility] 2023-03-30 09:40:00 2023-03-30 23:59:00 Hospital Encounter Connie Davey [facility] [id number] [facility] 2023-03-30 09:40:00 2023-03-30 23:59:00 Hospital Encounter Connie Davey [facility] [id number] [facility] 2023-03-30 13:46:20 2023-03-30 13:46:20 Outpatient ER MARIAH ALDRIDGE SLERigoberto SLE [id number] [facility] 2023-03-30 13:46:14 2023-03-30 13:46:14 Outpatient ER MARIAH ALDRIDGE SLERigoberto SLE [id number] [facility] 2023-03-30 10:24:04 2023-03-30 10:24:04 Outpatient ER NALAM, CONNIE [facility] [id number] [facility] 2023-03-30 00:00:00 2023-03-30 00:00:00 Orders Only [facility] [id number] [facility] 2023-03-30 00:00:00 2023-03-30 00:00:00 Travel [facility] [id number] [facility] 2023-03-30 00:00:00 2023-03-30 00:00:00 Orders Only [facility] [id number] [facility] 2023-03-30 00:00:00 2023-03-30 00:00:00 Travel [facility] [id number] [facility] 2022-12-11 08:56:00 2022-12-11 15:29:00 Emergency X Alfonso ALVARADO [facility] [id number] [facility] 2022-12-11 08:56:00 2022-12-11 15:29:00 Emergency Alfonso Alvarado [facility] 1.2.840.114 350.1.13.10 4.2.7.2.686 [id number] [facility] 2022-11-17 17:25:00 2022-11-18 01:19:00 Emergency X RITCHIE WARREN [facility] [id number] [facility] 2022-11-17 17:25:00 2022-11-18 01:19:00 Emergency Ritchie Warren E [facility] 1.2.840.114 350.1.13.10 4.2.7.2.686 [id number] [facility] 2022-08-28 00:00:00 2022-08-28 00:00:00 Patient Outreach Rk Shy Stoner BLAYNE [facility] 1.2.840.114 350.1.13.10 4.2.7.2.686 [id number] [facility] 2022-08-20 00:00:00 2022-08-20 00:00:00 Patient Outreach Shy Beckman ANDREZCHRISTIAN 1.2.840.114 350.1.13.10 4.2.7.2.686 [id number] [facility] 2022-08-02 17:30:00 2022-08-03 14:29:00 Hospital Encounter ER Halima Mendoza Kinjal M Ibe, Chimkama Ngozi Cynthia [facility] [id number] [facility] 2022-08-02 17:30:00 2022-08-03 14:29:00 Outpatient ER PARRISH WHEATLEY [facility] Neurology [id number] [facility] 2022-08-03 00:00:00 2022-08-03 00:00:00 Orders Only [facility] [id number] [facility] 2022-08-02 00:00:00 2022-08-02 00:00:00 Travel [facility] [id number] [facility] 2022-07-31 11:42:00 2022-08-01 21:48:00 Inpatient X LORENZA LOWRY [facility] [id number] [facility] 2022-07-31 11:42:00 2022-08-01 21:48:00 Hospital Encounter Sav oRndon Yaman [facility] 1..840.114 350.1.13.10 4.2.7.2.686 [id number] [facility] 2022-08-01 00:00:00 2022-08-01 00:00:00 Transition of Care CoreyTelmaMaria Teresa YANETCorbin WALLACEJono BENAVIDES 1.2.840.114 350.1.13.10 4.2.7.2.686 [id number] [facility] 2022-07-28 14:41:38 2022-07-28 14:41:38 Outpatient SFA SFA 0109 Adria Martínez 2022-07-28 00:00:00 2022-07-28 00:00:00 Outpatient Visit [id number] 2022-07-24 13:24:40 2022-07-24 13:24:40 Outpatient SFA [facility] [id number] Adria Galan Mauricio 2022-05-23 14:51:01 2022-05-23 14:51:01 Outpatient SFA [facility] [id number] Adria Martínez 2022-05-23 00:00:00 2022-05-23 00:00:00 Outpatient Visit [id number] 2022-05-04 20:22:00 2022-05-08 14:44:00 Outpatient X CHANTEL BOJORQUEZKAWEAH [facility] [id number] [facility] 2022-05-04 20:22:00 2022-05-08 14:44:00 Emergency BrinerBrandyn [facility] 1..840.114 350.1.13.10 4.2.7.2.686 [id number] [facility] 2022-04-13 13:06:00 2022-04-15 15:00:00 Inpatient X CONRAD [facility] B[facility] [id number] [facility] 2022-04-13 13:06:00 2022-04-15 15:00:00 Hospital Encounter [facility]apna [facility]argas [facility] ..840.114 350.1.13.10 4.2.7.2.686 [id number] [facility] 2022-02-19 10:20:00 2022-02-19 10:30:00 Imm/Inj Visit Vaccine, [place] Dangelo Pak [facility] 1.2840.114 350.1.13.10 4.2.7.2.686 [id number] [facility] 2022-02-19 10:20:00 2022-02-19 10:20:00 Outpatient R JOSE PAK [facility] [id number] [facility] 2021-11-23 15:07:00 2021-11-23 17:03:00 Emergency NICHELLE BRADY [facility] [id number] [facility] 2021-11-23 15:07:00 2021-11-23 17:03:00 Emergency Sav Rondon Folusho F [facility] 1.840.114 350.1.13.10 4.2.7.2.686 [id number] [facility] 2021-11-21 09:40:00 2021-11-21 09:40:00 Outpatient R [facility] [id number] [facility] 2021-05-24 09:30:00 2021-05-24 09:30:00 Outpatient R JOSE PAK [facility] [id number] [facility] 2021-05-24 08:47:51 2021-05-24 08:57:51 Imm/Inj Visit Vaccine, [place] Dangelo Pak [facility] 1.840.114 350.1.13.10 4.2.7.2.686 [id number] [facility] 2021-05-03 09:40:00 2021-05-03 09:59:35 Outpatient R JOSE PAK [facility] [id number] [facility] 2021-05-03 09:17:43 2021-05-03 09:59:35 Imm/Inj Visit Vaccine, [place] Jose Santiago [facility] 1.840.114 350.1.13.10 4.2.7.2.686 [id number] [facility] 2021-04-16 00:00:00 2021-04-16 00:00:00 Orders Only Doctor Unassigned, Marty [facility] 1.2840.114 350.1.13.10 4.2.7.2.686 [id number] [facility] 2021-03-17 00:00:00 2021-03-17 00:00:00 Telephone Miky Nava [facility] 1.20.114 350.1.13.10 4.2.7.2.686 [id number] [facility] 2021-03-16 20:08:00 2021-03-16 23:24:00 Emergency Fabrice Chakraborty [facility] 1.840.114 350.1.13.10 4.2.7.2.686 [id number] [facility] 2021-03-14 18:59:34 2021-03-14 20:19:13 Urgent Care Lydia Desouza Unknown, Attending [facility] 1.114 350.1.13.10 4.2.7.2.686 [id number] [facility] 2021-03-14 19:00:00 2021-03-14 19:00:00 Outpatient R UNKNOWN, ATTENDING [facility] [id number] [facility] 2021-02-19 10:49:00 2021-02-19 14:48:00 Emergency Anali Monroy [facility] 1.840.114 350.1.13.10 4.2.7.2.686 [id number] [facility] 2019-03-09 00:00:00 2019-03-09 00:00:00 Yehuda Zimmerman [address].840.114 350.1.13.10 4.2.7.2.686 [id number] 2019-03-09 00:00:00 2019-03-09 00:00:00 Yehuda Zimmerman [facility] 12.840.114 350.1.13.10 4.2.7.2.686 [id number] [facility] Results Test Description Test Time Test Comments Results Result Co mments Source BLOOD [id number] 07:00:10* Test Item Value Reference Range Interpretation Comme nts CULTURE (BEAKER) (test code = 1095) No growth in 5 days XR KNEE 3 VIEWS [id number] 09:27:00 [facility] 1970 Sex: FXR KNEE 3 VIEWS LEFT CLINICAL INDICATION: S/p fall COMPARISON: NoneFINDINGS: 3views of the left knee.There is no fracture or malalignment. The femorotibial andfemoropatellar joint spaces are intact.No joint fluid is demonstrated.Surrounding soft tissues are unremarkable. Scattered atheroscleroticvascular calcifications.IMPRESSION: No acute fracture or malalignment of the knee Electronically Signed By: Maxim Sultana09/08/2023 09:29 CDTWorkstation Name: [id number] [id number] 08:53:50* Test Item Value Reference Range Interpretation Comme nts POC-Glucose Meter (test code = 1538) 101 mg/dL 70-110 : TESTED AT [address], [address]: Substation Supervisor/Windmill Technician ID = [id number] for Umeh, [place]umb[place] Lab Interpretation (test code = 86203-1) [facility] [id number] 08:53:50* Test Item Value Reference Range Interpretation Comme nts POC-Glucose Meter (test code = 1538) 101 mg/dL 70-110 : TESTED AT [address], [address]: Substation Supervisor/Windmill Technician ID = [id number] for Umeh, Akumbu Lab Interpretation (test code = 24287-8) Normal [facility] [id number] 08:53:50* Test Item Value Reference Range Interpretation Comme nts POC-Glucose Meter (test code = 1538) 101 mg/dL 70-110 : TESTED AT [address], [address]: Substation Supervisor/Windmill Technician ID = [id number] for Umeh, [place] Lab Interpretation (test code = 78531-1) [facility] [id number] 08:53:50* Test Item Value Reference Range Interpretation Comme nts POC-GLUCOSE METER (BEAKER) (test code = 1538) 101 mg/dL 70-110 : TESTED AT [address], [address]: Substation Supervisor/Windmill Technician ID = [id number] for Umeh, [place] BASIC METABOLIC [id number] 05:40:45* Test Item Value Reference Range Interpretation Comme nts SODIUM (BEAKER) (test code = 381) 134 meq/L 136-145 L POTASSIUM (BEAKER) (test code = 379) 3.7 meq/L 3.5-5.1 CHLORIDE (BEAKER) (test code = 382) 97 meq/L 98-107 L CO2 (BEAKER) (test code = 355) 26 meq/L 22-29 BLOOD UREA NITROGEN (BEAKER) (test code = 354) 15 mg/dL 7-21 CREATININE (BEAKER) (test code = 358) 0.78 mg/dL 0.57-1.25 GLUCOSE RANDOM (BEAKER) (test code = 652) 96 mg/dL 70-105 CALCIUM (BEAKER) (test code = 697) 9.2 mg/dL 8.4-10.2 EGFR (BEAKER) (test code = 1092) 92 mL/min/1.73 sq m Interpretation of eG FR [...] GFR is not applicable for dialysis patients Substation Supervisor ID - [id number] 05:40:45* Test Item Value Reference Range Interpretation Comme nts MAGNESIUM (BEAKER) (test cod e = 627) 2.1 mg/dL 1.6-2.6 Substation Supervisor ID - [id number] 05:40:45* Test Item Value Reference Range Interpretation Comme nts PHOSPHORUS (BEAKER) (test co de = 604) 5.0 mg/dL 2.3-4.7 H Substation Supervisor ID - [id number] W/PLT COUNT & AUTO [id number] 04:49:23* Test Item Value Reference Range Interpretation Comme nts WHITE BLOOD CELL COUNT (BEAK ER) (test code = 775) 6.7 K/ L 3.5-10.5 RED BLOOD CELL COUNT (BEAKER ) (test code = 761) 4.46 M/ L 3.93-5.22 HEMOGLOBIN (BEAKER) (test co de = 410) 11.4 GM/DL 11.2-15.7 HEMATOCRIT (BEAKER) (test co de = 411) 37.6 % 34.1-44.9 MEAN CORPUSCULAR VOLUME (SAGE KER) (test code = 753) 84 fL 79-95 MEAN CORPUSCULAR HEMOGLOBIN (BEAKER) (test code = 751) 25.6 pg 25.6-32.2 MEAN CORPUSCULAR HEMOGLOBIN CONC (BEAKER) (test code = 752) 30.3 GM/DL 32.2-35.5 L RED CELL DISTRIBUTION WIDTH (BEAKER) (test code = 412) 15.9 % 11.7-14.4 H PLATELET COUNT (BEAKER) (raisa t code = 756) 400 K/CU MM 150-450 MEAN PLATELET VOLUME (BEAKER ) (test code = 754) 8.6 fL 9.4-12.3 L NUCLEATED RED BLOOD CELLS (BEAKER) (test code = 413) 0 /100 WBC 0-0 NEUTROPHILS RELATIVE PERCENT (BEAKER) (test code = 429) 62 % LYMPHOCYTES RELATIVE PERCENT (BEAKER) (test code = 430) 25 % MONOCYTES RELATIVE PERCENT (BEAKER) (test code = 431) 11 % EOSINOPHILS RELATIVE PERCENT (BEAKER) (test code = 432) 2 % BASOPHILS RELATIVE PERCENT (BEAKER) (test code = 437) 1 % NEUTROPHILS ABSOLUTE COUNT (BEAKER) (test code = 670) 4.16 K/ L 1.56-6.13 LYMPHOCYTES ABSOLUTE COUNT (BEAKER) (test code = 414) 1.66 K/ L 1.18-3.74 MONOCYTES ABSOLUTE COUNT (BE BRIDGER) (test code = 415) 0.71 K/ L 0.24-0.36 H EOSINOPHILS ABSOLUTE COUNT (BEAKER) (test code = 416) 0.13 K/ L 0.04-0.36 BASOPHILS ABSOLUTE COUNT (BE BRIDGER) (test code = 417) 0.05 K/ L 0.01-0.08 IMMATURE GRANULOCYTES-RELATI VE PERCENT (BEAKER) (test code = 2801) 0.40 % 0.00-1.00 POCT-GLUCOSE [id number] 21:40:23* Test Item Value Reference Range Interpretation Comme nts POC-GLUCOSE METER (BEAKER) (test code = 1538) 144 mg/dL 70-110 H : TESTED AT [facility] [address] [place] [place], [address]: Substation Supervisor/Windmill Technician ID = [id number] for Baeza, Diana [id number] 04:05:54* Test Item Value Reference Range Interpretation Comme nts MAGNESIUM (BEAKER) (test code = 627) 2.0 mg/dL 1.6-2.6 Specimen sligh tly hemolyzed Substation Supervisor ID - MADELINE [id number] 04:05:54* Test Item Value Reference Range Interpretation Comme nts PHOSPHORUS (BEAKER) (test code = 604) 4.5 mg/dL 2.3-4.7 Specimen sligh tly hemolyzed Substation Supervisor GEOVANNA CORREA WBASIC METABOLIC [id number] 04:05:54* Test Item Value Reference Range Interpretation Comme nts SODIUM (BEAKER) (test code = 381) 137 meq/L 136-145 POTASSIUM (BEAKER) (test code = 379) 4.0 meq/L 3.5-5.1 Specimen slightl y hemolyzed CHLORIDE (BEAKER) (test code = 382) 99 meq/L 98-107 CO2 (BEAKER) (test code = 355) 25 meq/L 22-29 BLOOD UREA NITROGEN (BEAKER) (test code = 354) 14 mg/dL 7-21 CREATININE (BEAKER) (test code = 358) 0.76 mg/dL 0.57-1.25 Specimen slightl y hemolyzed GLUCOSE RANDOM (BEAKER) (test code = 652) 102 mg/dL 70-105 CALCIUM (BEAKER) (test code = 697) 9.1 mg/dL 8.4-10.2 EGFR (BEAKER) (test code = [...] GFR is not applicable for dialysis patients Substation Supervisor GEOVANNA CORREA WCBC W/PLT COUNT & AUTO [id number] 03:40:48* Test Item Value Reference Range Interpretation Comme nts WHITE BLOOD CELL COUNT (BEAK ER) (test code = 775) 6.6 K/ L 3.5-10.5 RED BLOOD CELL COUNT (BEAKER ) (test code = 761) 4.18 M/ L 3.93-5.22 HEMOGLOBIN (BEAKER) (test co de = 410) 10.6 GM/DL 11.2-15.7 L HEMATOCRIT (BEAKER) (test co de = 411) 35.8 % 34.1-44.9 MEAN CORPUSCULAR VOLUME (SAGE KER) (test code = 753) 86 fL 79-95 MEAN CORPUSCULAR HEMOGLOBIN (BEAKER) (test code = 751) 25.4 pg 25.6-32.2 L MEAN CORPUSCULAR HEMOGLOBIN CONC (BEAKER) (test code = 752) 29.6 GM/DL 32.2-35.5 L RED CELL DISTRIBUTION WIDTH (BEAKER) (test code = 412) 15.9 % 11.7-14.4 H PLATELET COUNT (BEAKER) (raisa t code = 756) 405 K/CU MM 150-450 MEAN PLATELET VOLUME (BEAKER ) (test code = 754) 8.7 fL 9.4-12.3 L NUCLEATED RED BLOOD CELLS (BEAKER) (test code = 413) 0 /100 WBC 0-0 NEUTROPHILS RELATIVE PERCENT (BEAKER) (test code = 429) 62 % LYMPHOCYTES RELATIVE PERCENT (BEAKER) (test code = 430) 26 % MONOCYTES RELATIVE PERCENT (BEAKER) (test code = 431) 9 % EOSINOPHILS RELATIVE PERCENT (BEAKER) (test code = 432) 2 % BASOPHILS RELATIVE PERCENT (BEAKER) (test code = 437) 1 % NEUTROPHILS ABSOLUTE COUNT (BEAKER) (test code = 670) 4.14 K/ L 1.56-6.13 LYMPHOCYTES ABSOLUTE COUNT (BEAKER) (test code = 414) 1.71 K/ L 1.18-3.74 MONOCYTES ABSOLUTE COUNT (BE BRIDGER) (test code = 415) 0.60 K/ L 0.24-0.36 H EOSINOPHILS ABSOLUTE COUNT (BEAKER) (test code = 416) 0.12 K/ L 0.04-0.36 BASOPHILS ABSOLUTE COUNT (BE BRIDGER) (test code = 417) 0.05 K/ L 0.01-0.08 IMMATURE GRANULOCYTES-RELATI VE PERCENT (BEAKER) (test code = 2801) 0.30 % 0.00-1.00 POCT-GLUCOSE [id number] 21:28:35* Test Item Value Reference Range Interpretation Comme nts POC-GLUCOSE METER (BEAKER) (test code = 1538) 127 mg/dL 70-110 H : TESTED AT [facility] [address] [facility], [address]: Substation Supervisor/Windmill Technician ID = [id number] for Ryan Morin POCT-GLUCOSE [id number] 18:49:21* Test Item Value Reference Range Interpretation Comme nts POC-GLUCOSE METER (BEAKER) (test code = 1538) 122 mg/dL 70-110 H : TESTED AT [facility] [address] [facility], [address]: Substation Supervisor/Windmill Technician ID = [id number] for Lauren Santillan POCT-GLUCOSE [id number] 13:27:27* Test Item Value Reference Range Interpretation Comme nts POC-GLUCOSE METER (BEAKER) (test code = 1538) 130 mg/dL 70-110 H : TESTED AT [facility] [address] [facility], [address]: Substation Supervisor/Windmill Technician ID = [id number] for Lauren Santillan [id number] 09:09:14* Test Item Value Reference Range Interpretation Comme nts MAGNESIUM (BEAKER) (test cod e = 627) 2.2 mg/dL 1.6-2.6 [id number] 09:09:14* Test Item Value Reference Range Interpretation Comme nts PHOSPHORUS (BEAKER) (test co de = 604) 4.8 mg/dL 2.3-4.7 H BASIC METABOLIC [id number] 09:09:14* Test Item Value Reference Range Interpretation Comme nts SODIUM (BEAKER) (test code = 381) 140 meq/L 136-145 POTASSIUM (BEAKER) (test code = 379) 3.7 meq/L 3.5-5.1 CHLORIDE (BEAKER) (test code = 382) 105 meq/L 98-107 CO2 (BEAKER) (test code = 355) 28 meq/L 22-29 BLOOD UREA NITROGEN (BEAKER) (test code = 354) 12 mg/dL 7-21 CREATININE (BEAKER) (test code = 358) 0.84 mg/dL 0.57-1.25 GLUCOSE RANDOM (BEAKER) (test code = 652) 104 mg/dL 70-105 CALCIUM (BEAKER) (test code = 697) 9.1 mg/dL 8.4-10.2 EGFR (BEAKER) (test code = 1092) 84 mL/min/1.73 sq m Interpretation of eG FR [...] GFR is not applicable for dialysis patients POCT-GLUCOSE [id number] 08:33:30* Test Item Value Reference Range Interpretation Comme [facility] POC-GLUCOSE METER (BEAKER) (test code = 1538) 132 mg/dL 70-110 H : TESTED AT [facility] [address] [facility], [address]: Substation Supervisor/Windmill Technician ID = [id number] for Lauren Santillan CBC W/PLT COUNT & AUTO [id number] 05:47:59* Test Item Value Reference Range Interpretation Comme nts WHITE BLOOD CELL COUNT (BEAK ER) (test code = 775) 7.2 K/ L 3.5-10.5 RED BLOOD CELL COUNT (BEAKER ) (test code = 761) 4.71 M/ L 3.93-5.22 HEMOGLOBIN (BEAKER) (test co de = 410) 12.1 GM/DL 11.2-15.7 HEMATOCRIT (BEAKER) (test co de = 411) 40.7 % 34.1-44.9 MEAN CORPUSCULAR VOLUME (SAGE KER) (test code = 753) 86 fL 79-95 MEAN CORPUSCULAR HEMOGLOBIN (BEAKER) (test code = 751) 25.7 pg 25.6-32.2 MEAN CORPUSCULAR HEMOGLOBIN CONC (BEAKER) (test code = 752) 29.7 GM/DL 32.2-35.5 L RED CELL DISTRIBUTION WIDTH (BEAKER) (test code = 412) 15.8 % 11.7-14.4 H PLATELET COUNT (BEAKER) (raisa t code = 756) 415 K/CU MM 150-450 MEAN PLATELET VOLUME (BEAKER ) (test code = 754) 8.9 fL 9.4-12.3 L NUCLEATED RED BLOOD CELLS (BEAKER) (test code = 413) 0 /100 WBC 0-0 NEUTROPHILS RELATIVE PERCENT (BEAKER) (test code = 429) 61 % LYMPHOCYTES RELATIVE PERCENT (BEAKER) (test code = 430) 29 % MONOCYTES RELATIVE PERCENT (BEAKER) (test code = 431) 9 % EOSINOPHILS RELATIVE PERCENT (BEAKER) (test code = 432) 1 % BASOPHILS RELATIVE PERCENT (BEAKER) (test code = 437) 1 % NEUTROPHILS ABSOLUTE COUNT (BEAKER) (test code = 670) 4.35 K/ L 1.56-6.13 LYMPHOCYTES ABSOLUTE COUNT (BEAKER) (test code = 414) 2.05 K/ L 1.18-3.74 MONOCYTES ABSOLUTE COUNT (BE BRIDGER) (test code = 415) 0.61 K/ L 0.24-0.36 H EOSINOPHILS ABSOLUTE COUNT (BEAKER) (test code = 416) 0.09 K/ L 0.04-0.36 BASOPHILS ABSOLUTE COUNT (BE BRIDGER) (test code = 417) 0.04 K/ L 0.01-0.08 IMMATURE GRANULOCYTES-RELATI VE PERCENT (BEAKER) (test code = 2801) 0.40 % 0.00-1.00 POCT-GLUCOSE [id number] 21:35:37* Test Item Value Reference Range Interpretation Comme [facility] POC-GLUCOSE METER (BEAKER) (test code = 1538) 129 mg/dL 70-110 H : TESTED AT [facility] [address] [facility], [id number]: Substation Supervisor/Windmill Technician ID = [id number] for Ryan Morin MR BRAIN WITH & WITHOUT IV [id number] 15:49:58 [facility] ESTELLE : 1970 Sex: FMR BRAIN WITH & WITHOUT IV CONTRASTINDICATION: Brain mass or lesionTechnique: MRI of the brain utilizing axial T1, T2, FLAIR, GRE, DWI,sagittal T1; and postgadolinium axial, sagittal, and coronal T1-weightedimages.COMPARISON: NoneFINDINGS:Brain parenchyma is normal in morphology. Midline structures arenormally developed. No restricted diffusion to suggest recent ischemicinsult. No abnormal diggs sceptibility.Scattered T2/FLAIR hyperintense foci within the periventricular andsubcortical white matter are nonspecific, however, statisticallyrepresent chronic microvascular ischemic changes.No hydrocephalus.Orbits are within normal limits.No obstructive paranasal sinus disease.Additional findings: None.IMPRESSION:Unremarkable MRI of the brain.Electronically Signed By: Zeinab Dempsey09/05/2023 15:53 CDTWorkstation Name: [id number] METER 2023-09-05 08:34:25* Test Item Value Reference Range Interpretation Comme nts POC-GLUCOSE METER (BEAKER) (test code = 1538) 115 mg/dL 70-110 H : TESTED AT [facility] [address] [facility], [id number]: Substation Supervisor/Windmill Technician ID = [id number] for DOMINGA AMADOR BASIC METABOLIC [id number] 06:06:56* Test Item Value Reference Range Interpretation Comme nts SODIUM (BEAKER) (test code = 381) 138 meq/L 136-145 POTASSIUM (BEAKER) (test code = 379) 3.5 meq/L 3.5-5.1 CHLORIDE (BEAKER) (test code = 382) 102 meq/L 98-107 CO2 (BEAKER) (test code = 355) 26 meq/L 22-29 BLOOD UREA NITROGEN (BEAKER) (test code = 354) 14 mg/dL 7-21 CREATININE (BEAKER) (test code = 358) 0.78 mg/dL 0.57-1.25 GLUCOSE RANDOM (BEAKER) (test code = 652) 94 mg/dL 70-105 CALCIUM (BEAKER) (test code = 697) 8.6 mg/dL 8.4-10.2 EGFR (BEAKER) (test code = 1092) 92 mL/min/1.73 sq m Interpretation of eG FR [...] GFR is not applicable for dialysis patients Substation Supervisor ID - [id number] 06:06:56* Test Item Value Reference Range Interpretation Comme nts MAGNESIUM (BEAKER) (test cod e = 627) 2.2 mg/dL 1.6-2.6 Substation Supervisor ID - [id number] 06:06:56* Test Item Value Reference Range Interpretation Comme nts PHOSPHORUS (BEAKER) (test co de = 604) 3.8 mg/dL 2.3-4.7 Substation Supervisor ID - ADMINCBC W/PLT COUNT & AUTO [id number] 05:29:32* Test Item Value Reference Range Interpretation Comme nts WHITE BLOOD CELL COUNT (BEAK ER) (test code = 775) 8.1 K/ L 3.5-10.5 RED BLOOD CELL COUNT (BEAKER ) (test code = 761) 4.02 M/ L 3.93-5.22 HEMOGLOBIN (BEAKER) (test co de = 410) 10.4 GM/DL 11.2-15.7 L HEMATOCRIT (BEAKER) (test co de = 411) 34.1 % 34.1-44.9 MEAN CORPUSCULAR VOLUME (SAGE KER) (test code = 753) 85 fL 79-95 MEAN CORPUSCULAR HEMOGLOBIN (BEAKER) (test code = 751) 25.9 pg 25.6-32.2 MEAN CORPUSCULAR HEMOGLOBIN CONC (BEAKER) (test code = 752) 30.5 GM/DL 32.2-35.5 L RED CELL DISTRIBUTION WIDTH (BEAKER) (test code = 412) 15.6 % 11.7-14.4 H PLATELET COUNT (BEAKER) (raisa t code = 756) 447 K/CU MM 150-450 MEAN PLATELET VOLUME (BEAKER ) (test code = 754) 8.8 fL 9.4-12.3 L NUCLEATED RED BLOOD CELLS (BEAKER) (test code = 413) 0 /100 WBC 0-0 NEUTROPHILS RELATIVE PERCENT (BEAKER) (test code = 429) 75 % LYMPHOCYTES RELATIVE PERCENT (BEAKER) (test code = 430) 17 % MONOCYTES RELATIVE PERCENT (BEAKER) (test code = 431) 6 % EOSINOPHILS RELATIVE PERCENT (BEAKER) (test code = 432) 1 % BASOPHILS RELATIVE PERCENT (BEAKER) (test code = 437) 1 % NEUTROPHILS ABSOLUTE COUNT (BEAKER) (test code = 670) 6.05 K/ L 1.56-6.13 LYMPHOCYTES ABSOLUTE COUNT (BEAKER) (test code = 414) 1.35 K/ L 1.18-3.74 MONOCYTES ABSOLUTE COUNT (BE BRIDGER) (test code = 415) 0.52 K/ L 0.24-0.36 H EOSINOPHILS ABSOLUTE COUNT (BEAKER) (test code = 416) 0.11 K/ L 0.04-0.36 BASOPHILS ABSOLUTE COUNT (BE BRIDGER) (test code = 417) 0.04 K/ L 0.01-0.08 IMMATURE GRANULOCYTES-RELATI VE PERCENT (BEAKER) (test code = 2801) 0.50 % 0.00-1.00 POCT-GLUCOSE [id number] 04:55:18* Test Item Value Reference Range Interpretation Comme nts POC-GLUCOSE METER (BEAKER) (test code = 1538) 99 mg/dL 70-110 : TESTED AT [address], [address]: Substation Supervisor/Windmill Technician ID = [id number] for MikelKyahawn POCT-GLUCOSE [id number] 21:49:23* Test Item Value Reference Range Interpretation Comme nts POC-GLUCOSE METER (BEAKER) (test code = 1538) 124 mg/dL 70-110 H : TESTED AT [place] [id number] [facility], [address]: Substation Supervisor/Windmill Technician ID = [id number] for MikelKyahawn POCT-GLUCOSE [id number] 15:55:53* Test Item Value Reference Range Interpretation Comme nts POC-GLUCOSE METER (BEAKER) (test code = 1538) 126 mg/dL 70-110 H : TESTED AT [address], [address]: Substation Supervisor/Windmill Technician ID = [id number] for Hemanes, Diana'Constance [id number] 12:37:56* Test Item Value Reference Range Interpretation Comme nts PROCALCITONIN (BEAKER) (test code = 3036) < ng/mL <0.05 SEPSIS RISK (ng/mL)Low: 0.05-0.50Intermediate: 0.51-2.00High: >=2.01SARS- CoV2/Influenza/RSV [id number] 12:18:09* Test Item Value Reference Range Interpretation Comments SARS-COV2/RT-PCR (test code = 87079-1) Negative Negative The SARS-CoV-2 target nucleic acids are not detected in this specimen. Negative results do not preclude SARS-CoV-2 infection and should not be used as the sole basis for patient management decisions. Negative results must be combined with clinical observations, patient history, and epidemiological information. A false negative result may occur if a specimen is improperly collected, transported or handled. This SARS CoV-2 test is a rapid, real-time RT-PCR test intended for the qualitative detection of nucleic acid from SARS-CoV-2 in a nasopharyngeal swab specimen collected from individuals suspected of COVID-19 by their healthcare provider. Influenza A RT-PCR (test code = 41957-5) Negative Negative The Flu A target nucleic acids are not detected in this specimen. Influenza B RT-PCR (test code = 22639-7) Negative Negative The Flu B target nucleic acids are not detected in this specimen. RSV by RT-PCR (test code = 64051-9) Negative Negative The RSV target nucleic acids are not detected in this specimen. LYNDSAY (test code = LYNDSAY) The presence of SARS-CoV-2/FLU/RSV viral nucleic acids cannot rule out co-infections or disease caused by other viral or bacterial pathogens. As with any molecular test, mutations within the target regions of the Xpert Xpress SARS-CoV-2/Flu/RSV test could affect primer and/or probe binding resulting in failure to detect the presence of virus or the virus being detected less predictably. False negative results may occur if the virus is present at levels below the analytical limit of detection in this specimen. This Xpert Xpress SARS-CoV-2/Flu/RSV test is a rapid, real-time RT-PCR test intended for the qualitative detection of nucleic acid from Xpert Xpress SARS-CoV-2/Flu/RSV in a nasopharyngeal swab specimen collected from individuals suspected of Xpert Xpress SARS-CoV-2/Flu/RSV by their healthcare provider. Results from [facility] Xpert Xpress SARS-CoV-2/Flu/RSV test should be correlated with the clinical history, epidemiological data, and other data available to the clinician evaluating the patient. Viral nucleic acid may persist in vivo, independent of virus viability. Detection of analyte target(s) does not imply that the corresponding virus(es) are infectious or are the causative agents for clinical symptoms. This test has not been Food and Drug Administration (FDA) cleared or approved and has been authorized by FDA under an Emergency Use Authorization (EUA). This EUA will be effective until the declaration that circumstances exist justifying the authorization of the emergency use of in vitro diagnostic tests for detection and/or diagnosis of COVID-19 is terminated under Section 564(b)(2) of the Act or the EUA is revoked under Section 564(g) of the Act. Fact Sheet for Healthcare Providers:https://w [employer].com/Docu ments/Xpert%20Xpres s%20SARS%20CoV-2/Fa ct%20Sheets/302-390 2%49TQAG-QWL-9%20HE ALTHCARE%20PROVIDER S%20FACT%20SHEET.pd f Fact Sheet for Healthcare Patients:https://[employer]/Docum ents/Xpert%20Xpress %20SARS%20Cov-2/Fac t%20Sheets/302-3801 %06YFVU-QAM-3%20PAT IENT%20FACT%20SHEET .pdf Lab Interpretation (test code = 65994-6) [facility] [id number] 12:18:09* Test Item Value Reference Range Interpretation Comments SARS-COV2/RT-PCR (test code = 52633-1) Negative Negative The SARS-CoV-2 target nucleic acids are not detected in this specimen. Negative results do not preclude SARS-CoV-2 infection and should not be used as the sole basis for patient management decisions. Negative results must be combined with clinical observations, patient history, and epidemiological information. A false negative result may occur if a specimen is improperly collected, transported or handled. This SARS CoV-2 test is a rapid, real-time RT-PCR test intended for the qualitative detection of nucleic acid from SARS-CoV-2 in a nasopharyngeal swab specimen collected from individuals suspected of COVID-19 by their healthcare provider. Influenza A RT-PCR (test code = 60815-1) Negative Negative The Flu A target nucleic acids are not detected in this specimen. Influenza B RT-PCR (test code = 04189-5) Negative Negative The Flu B target nucleic acids are not detected in this specimen. RSV by RT-PCR (test code = 34910-0) Negative Negative The RSV target nucleic acids are not detected in this specimen. LYNDSAY (test code = LYNDSAY) The presence of SARS-CoV-2/FLU/RSV viral nucleic acids cannot rule out co-infections or disease caused by other viral or bacterial pathogens. As with any molecular test, mutations within the target regions of the Xpert Xpress SARS-CoV-2/Flu/RSV test could affect primer and/or probe binding resulting in failure to detect the presence of virus or the virus being detected less predictably. False negative results may occur if the virus is present at levels below the analytical limit of detection in this specimen. This Xpert Xpress SARS-CoV-2/Flu/RSV test is a rapid, real-time RT-PCR test intended for the qualitative detection of nucleic acid from Xpert Xpress SARS-CoV-2/Flu/RSV in a nasopharyngeal swab specimen collected from individuals suspected of Xpert Xpress SARS-CoV-2/Flu/RSV by their healthcare provider. Results from [facility] Xpert Xpress SARS-CoV-2/Flu/RSV test should be correlated with the clinical history, epidemiological data, and other data available to the clinician evaluating the patient. Viral nucleic acid may persist in vivo, independent of virus viability. Detection of analyte target(s) does not imply that the corresponding virus(es) are infectious or are the causative agents for clinical symptoms. This test has not been Food and Drug Administration (FDA) cleared or approved and has been authorized by FDA under an Emergency Use Authorization (EUA). This EUA will be effective until the declaration that circumstances exist justifying the authorization of the emergency use of in vitro diagnostic tests for detection and/or diagnosis of COVID-19 is terminated under Section 564(b)(2) of the Act or the EUA is revoked under Section 564(g) of the Act. Fact Sheet for Healthcare Providers:https://w maria elena.[employer]/Docu ments/Xpert%20Xpres s%20SARS%20CoV-2/Fa ct%20Sheets/302-390 2%72SDFO-XVS-1%20HE ALTHCARE%20PROVIDER S%20FACT%20SHEET.pd f Fact Sheet for Healthcare Patients:https://ww w.[employer]/Docum ents/Xpert%20Xpress %20SARS%20Cov-2/Fac t%20Sheets/302-3801 %92FVQL-VBN-9%20PAT IENT%20FACT%20SHEET .pdf Lab Interpretation (test code = 69292-4) [facility] [id number] 12:18:09* Test Item Value Reference Range Interpretation Comments SARS-COV2/RT-PCR (test code = 89169-7) Negative Negative The SARS-CoV-2 target nucleic acids are not detected in this specimen. Negative results do not preclude SARS-CoV-2 infection and should not be used as the sole basis for patient management decisions. Negative results must be combined with clinical observations, patient history, and epidemiological information. A false negative result may occur if a specimen is improperly collected, transported or handled. This SARS CoV-2 test is a rapid, real-time RT-PCR test intended for the qualitative detection of nucleic acid from SARS-CoV-2 in a nasopharyngeal swab specimen collected from individuals suspected of COVID-19 by their healthcare provider. Influenza A RT-PCR (test code = 91153-6) Negative Negative The Flu A target nucleic acids are not detected in this specimen. Influenza B RT-PCR (test code = 47043-9) Negative Negative The Flu B target nucleic acids are not detected in this specimen. RSV by RT-PCR (test code = 95449-2) Negative Negative The RSV target nucleic acids are not detected in this specimen. LYNDSAY (test code = LYNDSAY) The presence of SARS-CoV-2/FLU/RSV viral nucleic acids cannot rule out co-infections or disease caused by other viral or bacterial pathogens. As with any molecular test, mutations within the target regions of the Xpert Xpress SARS-CoV-2/Flu/RSV test could affect primer and/or probe binding resulting in failure to detect the presence of virus or the virus being detected less predictably. False negative results may occur if the virus is present at levels below the analytical limit of detection in this specimen. This Xpert Xpress SARS-CoV-2/Flu/RSV test is a rapid, real-time RT-PCR test intended for the qualitative detection of nucleic acid from Xpert Xpress SARS-CoV-2/Flu/RSV in a nasopharyngeal swab specimen collected from individuals suspected of Xpert Xpress SARS-CoV-2/Flu/RSV by their healthcare provider. Results from [facility] Xpert Xpress SARS-CoV-2/Flu/RSV test should be correlated with the clinical history, epidemiological data, and other data available to the clinician evaluating the patient. Viral nucleic acid may persist in vivo, independent of virus viability. Detection of analyte target(s) does not imply that the corresponding virus(es) are infectious or are the causative agents for clinical symptoms. This test has not been Food and Drug Administration (FDA) cleared or approved and has been authorized by FDA under an Emergency Use Authorization (EUA). This EUA will be effective until the declaration that circumstances exist justifying the authorization of the emergency use of in vitro diagnostic tests for detection and/or diagnosis of COVID-19 is terminated under Section 564(b)(2) of the Act or the EUA is revoked under Section 564(g) of the Act. Fact Sheet for Healthcare Providers:https://[employer]/Docu ments/Xpert%20Xpres s%20SARS%20CoV-2/Fa ct%20Sheets/302-390 2%08EOUI-LAK-9%20HE ALTHCARE%20PROVIDER S%20FACT%20SHEET.pd f Fact Sheet for Healthcare Patients:https://[employer]/Docum ents/Xpert%20Xpress %20SARS%20Cov-2/Fac t%20Sheets/302-3801 %66QEMJ-OMD-4%20PAT IENT%20FACT%20SHEET .pdf Lab Interpretation (test code = 10421-9) [facility]RSV [id number] 12:18:09* Test Item Value Reference Range Interpretation Comme nts SARS-COV2/RT-PCR (test code = 7731077) Negative Negative The SARS-CoV-2 t arget nucleic acids are not detected in this specimen. Negative results do not preclude SARS-CoV-2 infection and should not be used as the sole basis for patient management decisions. Negative results must be combined with clinical observations, patient history, and epidemiological information. A false negative result may occur if a specimen is improperly collected, transported or handled. This SARS CoV-2 test is a rapid, real-time RT-PCR test intended for the qualitative detection of nucleic acid from SARS-CoV-2 in a nasopharyngeal swab specimen collected from individuals suspected of COVID-19 by their healthcare provider. INFLUENZA A RT-PCR (test code = 3618353) Negative Negative The Flu A target nucleic acids are not detected in this specimen. INFLUENZA B RT-PCR (test code = 4076321) Negative Negative The Flu B target nucleic acids are not detected in this specimen. RSV RT-PCR (test code = 9709093) Negative Negative The RSV target n ucleic acids are not detected in this specimen. The presence of SARS-CoV-2/FLU/RSV viral nucleic acids cannot rule out co- infections or disease caused by other viral or bacterial pathogens. As with any molecular test, mutations within the target regions of the Xpert Xpress SARS-CoV-2/Flu/RSV test could affect primer and/or probe binding resulting in failure to detect the presence of virus or the virus being detected less predictably. False negative results may occur if the virus is present at levels below the analytical limit of detection inthis specimen.This Xpert Xpress SARS-CoV-2/Flu/RSV test is a rapid, real-time RT-PCR test intended for the qualitative detection of nucleic acid from Xpert Xpress SARS-CoV-2/Flu/RSV in a nasopharyngeal swab specimen collected from individuals suspected of Xpert Xpress SARS-CoV-2/Flu/RSV by their healthcare provider. Results from [facility] Xpert Xpress SARS-CoV-2/Flu/RSV test should be correlated with the clinical history, epidemiological data, and other data available to the clinician evaluating the p atient. Viral nucleic acid may persist in vivo, independent of virus viability. Detection of analyte target(s) does not imply that the corresponding virus(es) are infectious or are the causative agents for clinical symptoms.This test has not been Food and Drug Administration (FDA) cleared or approved and has been authorized by FDA under an Emergency Use Authorization (EUA). This EUA will be effective until the declaration that circumstances exist justifying the authorization of the emergency use of in vitro diagnostic tests for detection and/or diagnosis of COVID-19 is terminated under Section 564(b)(2) of the Act or the EUA is revoked under Section 564(g) of the Act.Fact Sheet for Healthcare Providers:https://www.[employer]/Documents/Xpert%20Xpress%20SARS%20CoV-2/Fact%2 0Sheets/302-3902%10IHCP-KKS-5%20HEALTHCARE%20PROVIDERS%20FACT%20SHEET.pdfFact Sheet for Healthcare Patients:https://ww w.[employer]/Documents/Xpert%20Xpress%20SARS%20Cov-2/Fact%20Sheets/302-3801%20S ARS-COV-2%20PATIENT%20FACT%20SHEET.pdfPOCT-GLUCOSE [id number] 11:08:35* Test Item Value Reference Range Interpretation Comme nts POC-GLUCOSE METER (BEAKER) (test code = 1538) 111 mg/dL 70-110 H : TESTED AT [facility] [address] [facility], [address]: Substation Supervisor/Windmill Technician ID = [id number] for JeremiahTramaine POCT-GLUCOSE [id number] 08:16:42* Test Item Value Reference Range Interpretation Comme nts POC-GLUCOSE METER (BEAKER) (test code = 1538) 108 mg/dL 70-110 : TESTED AT [facility] [address] [facility], [address]: Substation Supervisor/Windmill Technician ID = [id number] for Beata Vargas MR CERVICAL SPINE WITHOUT IV [id number] 07:58:49 [facility] ESTELLE : 1970 Sex: FMR LUMBAR SPINE WITHOUT IV CONTRAST, MR THORACIC SPINE WITHOUT IVCONTRAST, MR CERVICAL SPINE WITHOUT IV CONTRASTINDICATION: Myelopathy, acute or progressiveTECHNIQUE: Multiplanar, multisequence noncontrast MR images of thecervical, thoracic, and lumbar spine were obtained. COMPARISON: MRI lumbar, 06/13/2023 and 06/12/2023 CT cervical spineFINDINGS:Cervical Spine:The craniocervical junction is normal. The vertebral bodies have normal height, alignment, and signalintensity.Posterior changes fromanterior cervical discectomy fusion at C3-C7STIR hyperintensity seen within the cord at the C3-C4 level Paraspinalsoft tissues are unremarkable.C2- C3: Moderate spinal canal stenosis and facet arthropathyC3-C4: Moderate to severe spinal canal stenosis and mild to moderatebilateral neural foraminal st enosisC4-C5: No significant spinal canal or neural foraminal stenosisC5-C6: No significant spinal canal or neural foraminal stenosisC6-C7: Ligamentum flavum buckling with mild to moderate spinal canalstenosis C7-T1: No significant spinal canal or neural foraminal stenosisThoracic spine:The vertebral bodies have normal height, alignment, and signalintensity.Mild to moderate spondylosis and facet arthropathy are present withinthe spine.Posterior ligament ossifications at the calcifications at U75-I83doeeivt moderate spinal canal stenosisPosterior disc osteophyte at the T11-T12 level causing mild spinal canalstenosisThe spinal cord is normal in caliber and signal intensity. There is no significant foraminal or spinal canal stenosis.2.1 x 2.3 cm left adrenal nodule, incompletely characterizedParaspinal soft tissues are unremarkable.Lumbar spine:Postoperative changes from posterior decompression at the L3 and H5wollhh. A 1.3 x 1.5 cm (AP by transverse) T2 hyperintensepseudomeningocele is seen at the postoperative site.The conus medullaris terminates at the L1 level.Paraspinal soft tissuestuctures are unremarkable.Evaluation of the individual levels demonstrates:L1/L2: No significant spinal canal stenosis or neural foraminalnarrowing.L2/L3: Symmetric disc bulge with mild bilateral neural foraminalstenosis and moderate to severe spinal canal stenosisL3/L4: Symmetric disc bulge and facet arthropathy with small right faceteffusion and moderate severe spinal canal stenosis and severeleft andmoderate to severe right neural foraminal stenosisL4/L5: Symmetric disc bulge and facet arthropathy with moderate spinalcanal stenosis and severe bilateral neural foraminal stenosisL5/S1: Symmetric disc bulge and facet arthropathy with moderatebilateral neural foraminal stenosisIMPRESSION:1. Cervical spinal cord myelopathy at C3-C4, with moderate to severespinal canal stenosis at this level.2. Postoperative changes from posterior decompression at L3-L4 levelwith associated 1.3 x 1.5 cm pseudomeningocele at the postoperativesite, similar to prior exam.3. Moderate to severe degenerativespinal canal stenosis at the L2-L3and L3-L4 levels.4. Severe degenerative neural foraminal stenosisat the left L3-L4 andbilateral L4-L5 levels5. 2. Postoperative changes from C3 through C7 ACDF.6. 3. Moderate degenerative spinal canal stenosis at T10-T11.7. 2.1 x 2.3 cm left adrenal nodule, incompletely characterized,similar to prior examElectronically Signed By: Maxim Sultana09/04/2023 08:00 CDTWorkstation Name: [id number] THORACIC SPINE WITHOUT IV [id number] 07:58:49 [facility] : 1970 Sex: FMR LUMBAR SPINE WITHOUT IV CONTRAST, MR THORACIC SPINE WITHOUT IVCONTRAST, MR CERVICAL SPINE WITHOUT IV CONTRASTINDICATION: Myelopathy, acute or progressiveTECHNIQUE: Multiplanar, multisequence noncontrast MR images of thecervical, thoracic, and lumbar spine were obtained. COMPARISON: MRI lumbar, 06/13/2023 and 06/12/2023 CT cervical spineFINDINGS:Cervical Spine:The craniocervical junction is normal. The vertebral bodies have normal height, alignment, and signalintensity.Posterior changes fromanterior cervical discectomy fusion at C3-C7STIR hyperintensity seen within the cord at the C3-C4 level Paraspinalsoft tissues are unremarkable.C2- C3: Moderate spinal canal stenosis and facet arthropathyC3-C4: Moderate to severe spinal canal stenosis and mild to moderatebilateral neural foraminal st enosisC4-C5: No significant spinal canal or neural foraminal stenosisC5-C6: No significant spinal canal or neural foraminal stenosisC6-C7: Ligamentum flavum buckling with mild to moderate spinal canalstenosis C7-T1: No significant spinal canal or neural foraminal stenosisThoracic spine:The vertebral bodies have normal height, alignment, and signalintensity.Mild to moderate spondylosis and facet arthropathy are present withinthe spine.Posterior ligament ossifications at the calcifications at E12-W06izxrxrh moderate spinal canal stenosisPosterior disc osteophyte at the T11-T12 level causing mild spinal canalstenosisThe spinal cord is normal in caliber and signal intensity. There is no significant foraminal or spinal canal stenosis.2.1 x 2.3 cm left adrenal nodule, incompletely characterizedParaspinal soft tissues are unremarkable.Lumbar spine:Postoperative changes from posterior decompression at the L3 and V0uazbaw. A 1.3 x 1.5 cm (AP by transverse) T2 hyperintensepseudomeningocele is seen at the postoperative site.The conus medullaris terminates at the L1 level.Paraspinal soft tissuestuctures are unremarkable.Evaluation of the individual levels demonstrates:L1/L2: No significant spinal canal stenosis or neural foraminalnarrowing.L2/L3: Symmetric disc bulge with mild bilateral neural foraminalstenosis and moderate to severe spinal canal stenosisL3/L4: Symmetric disc bulge and facet arthropathy with small right faceteffusion and moderate severe spinal canal stenosis and severeleft andmoderate to severe right neural foraminal stenosisL4/L5: Symmetric disc bulge and facet arthropathy with moderate spinalcanal stenosis and severe bilateral neural foraminal stenosisL5/S1: Symmetric disc bulge and facet arthropathy with moderatebilateral neural foraminal stenosisIMPRESSION:1. Cervical spinal cord myelopathy at C3-C4, with moderate to severespinal canal stenosis at this level.2. Postoperative changes from posterior decompression at L3-L4 levelwith associated 1.3 x 1.5 cm pseudomeningocele at the postoperativesite, similar to prior exam.3. Moderate to severe degenerativespinal canal stenosis at the L2-L3and L3-L4 levels.4. Severe degenerative neural foraminal stenosisat the left L3-L4 andbilateral L4-L5 levels5. 2. Postoperative changes from C3 through C7 ACDF.6. 3. Moderate degenerative spinal canal stenosis at T10-T11.7. 2.1 x 2.3 cm left adrenal nodule, incompletely characterized,similar to prior examElectronically Signed By: Maxim Sultana09/04/2023 08:00 CDTWorkstation Name: [id number] LUMBAR SPINE WITHOUT IV [id number] 07:58:49 [facility] 1970 Sex: FMR LUMBAR SPINE WITHOUT IV CONTRAST, MR THORACIC SPINE WITHOUT IVCONTRAST, MR CERVICAL SPINE WITHOUT IV CONTRASTINDICATION: Myelopathy, acute or progressiveTECHNIQUE: Multiplanar, multisequence noncontrast MR images of thecervical, thoracic, and lumbar spine were obtained. COMPARISON: MRI lumbar, 06/13/2023 and 06/12/2023 CT cervical spineFINDINGS:Cervical Spine:The craniocervical junction is normal. The vertebral bodies have normal height, alignment, and signalintensity.Posterior changes fromanterior cervical discectomy fusion at C3-C7STIR hyperintensity seen within the cord at the C3-C4 level Paraspinalsoft tissues are unremarkable.C2- C3: Moderate spinal canal stenosis and facet arthropathyC3-C4: Moderate to severe spinal canal stenosis and mild to moderatebilateral neural foraminal st enosisC4-C5: No significant spinal canal or neural foraminal stenosisC5-C6: No significant spinal canal or neural foraminal stenosisC6-C7: Ligamentum flavum buckling with mild to moderate spinal canalstenosis C7-T1: No significant spinal canal or neural foraminal stenosisThoracic spine:The vertebral bodies have normal height, alignment, and signalintensity.Mild to moderate spondylosis and facet arthropathy are present withinthe spine.Posterior ligament ossifications at the calcifications at [id number]-[id number] moderate spinal canal stenosisPosterior disc osteophyte at the T11-T12 level causing mild spinal canalstenosisThe spinal cord is normal in caliber and signal intensity. There is no significant foraminal or spinal canal stenosis.2.1 x 2.3 cm left adrenal nodule, incompletely characterizedParaspinal soft tissues are unremarkable.Lumbar spine:Postoperative changes from posterior decompression at the L3 and I7jbecvg. A 1.3 x 1.5 cm (AP by transverse) T2 hyperintensepseudomeningocele is seen at the postoperative site.The conus medullaris terminates at the L1 level.Paraspinal soft tissuestuctures are unremarkable.Evaluation of the individual levels demonstrates:L1/L2: No significant spinal canal stenosis or neural foraminalnarrowing.L2/L3: Symmetric disc bulge with mild bilateral neural foraminalstenosis and moderate to severe spinal canal stenosisL3/L4: Symmetric disc bulge and facet arthropathy with small right faceteffusion and moderate severe spinal canal stenosis and severeleft andmoderate to severe right neural foraminal stenosisL4/L5: Symmetric disc bulge and facet arthropathy with moderate spinalcanal stenosis and severe bilateral neural foraminal stenosisL5/S1: Symmetric disc bulge and facet arthropathy with moderatebilateral neural foraminal stenosisIMPRESSION:1. Cervical spinal cord myelopathy at C3-C4, with moderate to severespinal canal stenosis at this level.2. Postoperative changes from posterior decompression at L3-L4 levelwith associated 1.3 x 1.5 cm pseudomeningocele at the postoperativesite, similar to prior exam.3. Moderate to severe degenerativespinal canal stenosis at the L2-L3and L3-L4 levels.4. Severe degenerative neural foraminal stenosisat the left L3-L4 andbilateral L4-L5 levels5. 2. Postoperative changes from C3 through C7 ACDF.6. 3. Moderate degenerative spinal canal stenosis at T10-T11.7. 2.1 x 2.3 cm left adrenal nodule, incompletely characterized,similar to prior examElectronically Signed By: Maxim Sultana09/04/2023 08:00 CDTWorkstation Name: [id number] 2023-09-04 07:46:14* Test Item Value Reference Range Interpretation Comme nts FERRITIN (BEAKER) (test code = 361) 31.77 ng/mL 5.00-275.00 Substation Supervisor ID - hgIRON, TIBC, % SAT. (WITHOUT FERRITIN)2023-09-04 07:24:52* Test Item Value Reference Range Interpretation Comme nts IRON (BEAKER) (test code = 547) 22.0 ug/dL 40.0-160.0 L TOTAL IRON BINDING CAPACITY (BEAKER) (test code = 769) 369 ug/dL 250-450 IRON % SATURATION (2) (BEAKE R) (test code = 2590) 6 % 20-55 L Substation Supervisor ID - hgCT LUMBAR SPINE WITHOUT IV [id number] 05:42:45 [facility] 1970 Sex: FEXAM: CT THORACIC SPINE WITHOUT IV CONTRAST, CT LUMBAR SPINE WITHOUT IVCONTRAST, 09/04/2023 5:19 AMCLINICAL: Mid-back pain, compression fracture suspectedTECHNIQUE: CT of the thoracic and lumbar spine was performed without theadministration of intravenous contrast. Multiplanar reformatted imagesareprovided for interpretation. Dose modulation, iterativereconstruction, and/or weight based adjustment of the mA/kV was utilizedto reduce the radiation dose to as low as reasonably achievable.COMPARISON: Thoracic and lumbar spine MRI, 03/30/2023.FINDINGS:Thoracic spine:Bones/alignment: No acute fracture or traumatic malalignment. Vertebralbody heights and AP alignment are maintained. Partially seencervicalspine ACDF hardware.Degenerative changes: Mild multilevel the anterior bone spurring. Nobony canal stenosis. Mild to moderate left and mild right neuralforaminal stenosis from T9-10 through T11-12. Mild bilateral facethypertrophy at T11-12. Intervertebral disc height loss with vacuumphenomen on at T11-12.Soft tissues: No paraspinal mass. Incidental note of gastroesophagealreflux. Annular mitral valvular calcifications and left-sided coronaryartery calcifications are present.Lumbar spine:Bones/alignment: Age- indeterminate nondisplaced fracture of the G8lfrojgusy elements, predominantly i nvolving the lamina and pinusprocess.. Vertebral body heights and AP alignment are maintained.Degenerative change:T12-L1: Small anterior disc osteophyte complex. No evidence of canal orneural foraminal narrowing.L1-2: Minimal anterior bone spurring at the endplates. Mild bilateralfacet hypertrophy.No canal or neural foraminal narrowing.L2-3: Mild bilateral facet hypertrophy. Similar appearance of abroad-based posterior disc bulge with canal narrowing to approximately 6mm, moderate right and mild left neural foraminal narrowing.L3-4: Mild to moderate bilateral facet hypertrophy. Intervertebral discspace narrowing with vacuum phenomenon and subchondral sclerotic andcystic changes at the endpl ates. There is a broad-based moderateposterior disc bulge with associated moderate to severe bilateral neuralforaminal narrowing. Status post surgical decompression at this levelwith a patent spinal canal.L4-5: Intervertebral disc space narrowing with vacuum phenomenon andsubchondral sclerotic and cystic changes at the endplates. Moderatebilateral facet hypertrophy. Moderate to severe bilateral neuralforaminal stenosis.L5-S1: Mild broad-based posterior disc bulge with no significant canalor neural foraminal stenosis.Soft tissues: Benign 2.7 cm left adrenal adenoma. Moderateatherosclerotic plaque. No paraspinal mass. Postoperative changes in themidline posterior lumbar soft tissues.IMPRESSION:1. Age-indeterminate nondisplaced fracture of L4 spinous process andbilateral laminae, favored to be subacute to chronic. 2. No evidence of fracture elsewhere in the thoracic or lumbar spine.3. Moderate lumbar spondylotic changes outlined above, overall similarin appearance compared to the MRI inSeptember 2022.Electronically Signed By: Suzan Weaver09/04/2023 05:45 CDTWorkstation Name: [id number] THORACIC SPINE WITHOUT IV [id number] 05:42:45 [facility] : 1970 Sex: FEXAM: CT THORACIC SPINE WITHOUT IV CONTRAST, CT LUMBAR SPINE WITHOUT IVCONTRAST, 09/04/2023 5:19 AMCLINICAL: Mid-back pain, compression fracture suspectedTECHNIQUE: CT of the thoracic and lumbar spine was performed without theadministration of intravenous contrast. Multiplanar reformatted imagesareprovided for interpretation. Dose modulation, iterativereconstruction, and/or weight based adjustment of the mA/kV was utilizedto reduce the radiation dose to as low as reasonably achievable.COMPARISON: Thoracic and lumbar spine MRI, 03/30/2023.FINDINGS:Thoracic spine:Bones/alignment: No acute fracture or traumatic malalignment. Vertebralbody heights and AP alignment are maintained. Partially seencervicalspine ACDF hardware.Degenerative changes: Mild multilevel the anterior bone spurring. Nobony canal stenosis. Mild to moderate left and mild right neuralforaminal stenosis from T9-10 through T11-12. Mild bilateral facethypertrophy at T11-12. Intervertebral disc height loss with vacuumphenomen on at T11-12.Soft tissues: No paraspinal mass. Incidental note of gastroesophagealreflux. Annular mitral valvular calcifications and left-sided coronaryartery calcifications are present.Lumbar spine:Bones/alignment: Age- indeterminate nondisplaced fracture of the H5tkonffiye elements, predominantly i nvolving the lamina and pinusprocess.. Vertebral body heights and AP alignment are maintained.Degenerative change:T12-L1: Small anterior disc osteophyte complex. No evidence of canal orneural foraminal narrowing.L1-2: Minimal anterior bone spurring at the endplates. Mild bilateralfacet hypertrophy.No canal or neural foraminal narrowing.L2-3: Mild bilateral facet hypertrophy. Similar appearance of abroad-based posterior disc bulge with canal narrowing to approximately 6mm, moderate right and mild left neural foraminal narrowing.L3-4: Mild to moderate bilateral facet hypertrophy. Intervertebral discspace narrowing with vacuum phenomenon and subchondral sclerotic andcystic changes at the endpl ates. There is a broad-based moderateposterior disc bulge with associated moderate to severe bilateral neuralforaminal narrowing. Status post surgical decompression at this levelwith a patent spinal canal.L4-5: Intervertebral disc space narrowing with vacuum phenomenon andsubchondral sclerotic and cystic changes at the endplates. Moderatebilateral facet hypertrophy. Moderate to severe bilateral neuralforaminal stenosis.L5-S1: Mild broad-based posterior disc bulge with no significant canalor neural foraminal stenosis.Soft tissues: Benign 2.7 cm left adrenal adenoma. Moderateatherosclerotic plaque. No paraspinal mass. Postoperative changes in themidline posterior lumbar soft tissues.IMPRESSION:1. Age-indeterminate nondisplaced fracture of L4 spinous process andbilateral laminae, favored to be subacute to chronic. 2. No evidence of fracture elsewhere in the thoracic or lumbar spine.3. Moderate lumbar spondylotic changes outlined above, overall similarin appearance compared to the MRI in March 2023.Electronically Signed By: Suzan Weaver09/04/2023 05:45 CDTWorkstation Name: [id number] 04:44:34* Test Item Value Reference Range Interpretation Comme nts FIBRINOGEN LEVEL (BEAKER) (t est code = 658) 410 mg/dl 225-434 Urinalysis without [id number] 03:58:52* Test Item Value Reference Range Interpretation Comme nts Color, UA (test code = 5778-6) Light Yellow Clarity, UA (test code = 5767-9) Hazy Specific [place], UA (test code = 5811-5) 1.017 1.001-1.035 pH, UA (test code = 5803-2) 6.0 5.0-8.0 Protein, UA (test code = 01189-1) 10 mg/dL Negative A Glucose, UA (test code = 365) Negative Negative Ketones, UA (test code = 2514-8) Trace Negative A Bilirubin, UA (test code = 07706-7) Negative Negative Blood, UA (test code = 67167-3) Trace Negative A Nitrite, UA (test code = 5802-4) Negative Negative Leukocytes, UA (test code = 5799-2) Negative Negative Urobilinogen, UA (test code = 05920-8) 0.2 0.2-1.0 Specimen Source (test code = 2795) LYNDSAY (test code = LYNDSAY) Substation Supervisor ID - [auto]Substation Supervisor ID - tech Lab Interpretation (test code = 62979-0) [facility] [id number] 03:58:52* Test Item Value Reference Range Interpretation Comme nts Color, UA (test code = 5778-6) Light Yellow Clarity, UA (test code = 5767-9) Hazy Specific [place], UA (test code = 5811-5) 1.017 1.001-1.035 pH, UA (test code = 5803-2) 6.0 5.0-8.0 Protein, UA (test code = 24868-5) 10 mg/dL Negative A Glucose, UA (test code = 365) Negative Negative Ketones, UA (test code = 2514-8) Trace Negative A Bilirubin, UA (test code = 59917-8) Negative Negative Blood, UA (test code = 42141-1) Trace Negative A Nitrite, UA (test code = 5802-4) Negative Negative Leukocytes, UA (test code = 5799-2) Negative Negative Urobilinogen, UA (test code = 77881-9) 0.2 0.2-1.0 Specimen Source (test code = 2795) LYNDSAY (test code = LYNDSAY) Substation Supervisor ID - [auto]Substation Supervisor ID - tech Lab Interpretation (test code = 31780-6) [facility]normal [facility] [id number] 03:58:52* Test Item Value Reference Range Interpretation Comme nts Color, UA (test code = 5778-6) Light Yellow Clarity, UA (test code = 5767-9) Hazy Specific [place], UA (test code = 5811-5) 1.017 1.001-1.035 pH, UA (test code = 5803-2) 6.0 5.0-8.0 Protein, UA (test code = 15346-1) 10 mg/dL Negative A Glucose, UA (test code = 365) Negative Negative Ketones, UA (test code = 2514-8) Trace Negative A Bilirubin, UA (test code = 15667-4) Negative Negative Blood, UA (test code = 45898-5) Trace Negative A Nitrite, UA (test code = 5802-4) Negative Negative Leukocytes, UA (test code = 5799-2) Negative Negative Urobilinogen, UA (test code = 86352-5) 0.2 0.2-1.0 Specimen Source (test code = 2795) LYNDSAY (test code = LYNDSAY) Substation Supervisor ID - [auto]Substation Supervisor ID - tech Lab Interpretation (test code = 86036-4) [facility]normal [facility] [id number] 03:58:52* Test Item Value Reference Range Interpretation Comme nts COLOR (BEAKER) (test code = 470) Light Yellow CLARITY (BEAKER) (test code = 469) Hazy SPECIFIC GRAVITY UA (BEAKER) (test code = 468) 1.017 1.001-1.035 PH UA (BEAKER) (test code = 467) 6.0 5.0-8.0 PROTEIN UA (BEAKER) (test co de = 464) 10 mg/dL Negative A GLUCOSE UA (BEAKER) (test co de = 365) Negative Negative KETONES UA (BEAKER) (test co de = 371) Trace Negative A BILIRUBIN UA (BEAKER) (test code = 462) Negative Negative BLOOD UA (BEAKER) (test code = 461) Trace Negative A NITRITE UA (BEAKER) (test co de = 465) Negative Negative LEUKOCYTE ESTERASE UA (BEAKE R) (test code = 466) Negative Negative UROBILINOGEN UA (BEAKER) (te st code = 463) 0.2 0.2-1.0 SOURCE(BEAKER) (test code = 2795) Substation Supervisor ID - [auto]Substation Supervisor ID - techCBC W/PLT COUNT & AUTO DIFFERENTIAL 2023-09-04 02:25:10* Test Item Value Reference Range Interpretation Comme nts WHITE BLOOD CELL COUNT (BEAK ER) (test code = 775) 8.2 K/ L 3.5-10.5 RED BLOOD CELL COUNT (BEAKER ) (test code = 761) 3.78 M/ L 3.93-5.22 L HEMOGLOBIN (BEAKER) (test co de = 410) 9.9 GM/DL 11.2-15.7 L HEMATOCRIT (BEAKER) (test co de = 411) 33.1 % 34.1-44.9 L MEAN CORPUSCULAR VOLUME (SAGE KER) (test code = 753) 88 fL 79-95 MEAN CORPUSCULAR HEMOGLOBIN (BEAKER) (test code = 751) 26.2 pg 25.6-32.2 MEAN CORPUSCULAR HEMOGLOBIN CONC (BEAKER) (test code = 752) 29.9 GM/DL 32.2-35.5 L RED CELL DISTRIBUTION WIDTH (BEAKER) (test code = 412) 16.0 % 11.7-14.4 H PLATELET COUNT (BEAKER) (raisa t code = 756) 544 K/CU MM 150-450 H MEAN PLATELET VOLUME (BEAKER ) (test code = 754) 9.3 fL 9.4-12.3 L NUCLEATED RED BLOOD CELLS (BEAKER) (test code = 413) 1 /100 WBC 0-0 H NEUTROPHILS RELATIVE PERCENT (BEAKER) (test code = 429) 62 % LYMPHOCYTES RELATIVE PERCENT (BEAKER) (test code = 430) 28 % MONOCYTES RELATIVE PERCENT (BEAKER) (test code = 431) 8 % EOSINOPHILS RELATIVE PERCENT (BEAKER) (test code = 432) 1 % BASOPHILS RELATIVE PERCENT (BEAKER) (test code = 437) 1 % NEUTROPHILS ABSOLUTE COUNT (BEAKER) (test code = 670) 5.05 K/ L 1.56-6.13 LYMPHOCYTES ABSOLUTE COUNT (BEAKER) (test code = 414) 2.33 K/ L 1.18-3.74 MONOCYTES ABSOLUTE COUNT (BE BRIDGER) (test code = 415) 0.69 K/ L 0.24-0.36 H EOSINOPHILS ABSOLUTE COUNT (BEAKER) (test code = 416) 0.05 K/ L 0.04-0.36 BASOPHILS ABSOLUTE COUNT (BE BRIDGER) (test code = 417) 0.04 K/ L 0.01-0.08 IMMATURE GRANULOCYTES-RELATI VE PERCENT (BEAKER) (test code = 2801) 0.70 % 0.00-1.00 Rapid drug screen, [id number] 02:20:15* Test Item Value Reference Range Interpretation Comme nts Barbiturate Screen (test code = 95496-2) Negative Negative Benzodiazepine Screen (test code = 38248-9) Negative Negative Cocaine (Metab.) Screen (test code = 3397-7) Positive Negative A Methadone Screen (test code = 31756-4) Negative Negative Opiate Screen (test code = 11911-7) Negative Negative Cannabinoid Screen (test code = 50505-2) Positive Negative A Amph/Methamph Screen (test code = 47901-1) Negative Negative Phencyclidine Screen (test code = 21299-9) Negative Negative pH, UA (test code = 5803-2) 6.0 5.0-8.0 LYNDSAY (test code = LYNDSAY) DRUG CUTOFF CONC.Cocaine 300 ng/mL Cannabinoid 50 ng/mLBenzodiazepine 200 ng/mLBarbiturate 200 ng/mLPhencyclidine 25 ng/mLOpiate 300 ng/mLMethadone 300 ng/mLAmphetamine/ 1000 ng/mL Methamphetamine This assay provides an unconfirmed qualitative test result for the clinical management of patients in emergency situations. Chain of custody not maintained. Some weda-xki-yxiqkud medications, as well as adulterants, may cause inaccurate results. Clinical correlation should be applied. A more comprehensive drug screen or confirmation of a detected drug may be performed upon request.Substation Supervisor ID - ADMIN Lab Interpretation (test code = 75100-1) Abnormal [facility], [id number] 02:20:15* Test Item Value Reference Range Interpretation Comme nts Barbiturate Screen (test code = 49734-9) Negative Negative Benzodiazepine Screen (test code = 86088-0) Negative Negative Cocaine (Metab.) Screen (test code = 3397-7) Positive Negative A Methadone Screen (test code = 47605-0) Negative Negative Opiate Screen (test code = 00132-5) Negative Negative Cannabinoid Screen (test code = 77463-9) Positive Negative A Amph/Methamph Screen (test code = 61556-4) Negative Negative Phencyclidine Screen (test code = 45177-0) Negative Negative pH, UA (test code = 5803-2) 6.0 5.0-8.0 LYNDSAY (test code = LYNDSAY) DRUG CUTOFF CONC.Cocaine 300 ng/mL Cannabinoid 50 ng/mLBenzodiazepine 200 ng/mLBarbiturate 200 ng/mLPhencyclidine 25 ng/mLOpiate 300 ng/mLMethadone 300 ng/mLAmphetamine/ 1000 ng/mL Methamphetamine This assay provides an unconfirmed qualitative test result for the clinical management of patients in emergency situations. Chain of custody not maintained. Some ebxi-zno-jjdabtf medications, as well as adulterants, may cause inaccurate results. Clinical correlation should be applied. A more comprehensive drug screen or confirmation of a detected drug may be performed upon request.Substation Supervisor ID - ADMIN Lab Interpretation (test code = 75947-6) Abnormal [facility], [id number] 02:20:15* Test Item Value Reference Range Interpretation Comme nts Barbiturate Screen (test code = 21640-7) Negative Negative Benzodiazepine Screen (test code = 09911-7) Negative Negative Cocaine (Metab.) Screen (test code = 3397-7) Positive Negative A Methadone Screen (test code = 05363-3) Negative Negative Opiate Screen (test code = 75334-4) Negative Negative Cannabinoid Screen (test code = 53386-6) Positive Negative A Amph/Methamph Screen (test code = 64511-2) Negative Negative Phencyclidine Screen (test code = 68286-0) Negative Negative pH, UA (test code = 5803-2) 6.0 5.0-8.0 LYNDSAY (test code = LYNDSAY) DRUG CUTOFF CONC.Cocaine 300 ng/mL Cannabinoid 50 ng/mLBenzodiazepine 200 ng/mLBarbiturate 200 ng/mLPhencyclidine 25 ng/mLOpiate 300 ng/mLMethadone 300 ng/mLAmphetamine/ 1000 ng/mL Methamphetamine This assay provides an unconfirmed qualitative test result for the clinical management of patients in emergency situations. Chain of custody not maintained. Some lxpz-lkp-btlpsle medications, as well as adulterants, may cause inaccurate results. Clinical correlation should be applied. A more comprehensive drug screen or confirmation of a detected drug may be performed upon request.Substation Supervisor ID - ADMIN Lab Interpretation (test code = 18140-7) Abnormal [facility], [id number] 02:20:15* Test Item Value Reference Range Interpretation Comme nts BARBITURATE URINE (BEAKER) ( test code = 725) Negative Negative BENZODIAZEPINE SCREEN URINE (BEAKER) (test code = 726) Negative Negative COCAINE (METAB.) SCREEN (SAGE KER) (test code = 1164) Positive Negative A METHADONE SCREEN (BEAKER) (t est code = 1436) Negative Negative OPIATE SCREEN URINE (BEAKER) (test code = 734) Negative Negative CANNABINOID SCREEN URINE (BE BRIDGER) (test code = 727) Positive Negative A AMPH/METHAMPH SCREEN (BEAKER ) (test code = 1438) Negative Negative PHENCYCLIDINE SCREEN URINE ( BEAKER) (test code = 608) Negative Negative PH UA (BEAKER) (test code = 467) 6.0 5.0-8.0 DRUG CUTOFF CONC.Cocaine 300 ng/mL Cannabinoid 50 ng/mLBenzodiazepine 200 ng/mLBarbiturate 200 ng/mLPhencyclidine 25 ng/mLOpiate 300 ng/mLMethadone 300 ng/mLAmphetamine/ 1000 ng/mL MethamphetamineThis assay provides an unconfirmed qualitative test result for the clinical management of patients in emergency situations. Chain of custody not maintained. Some gabx-xuk-xsrfsqk medications, as well as adulterants, may cause inaccurate results. Clinical correlation should be applied. A more comprehensive drug screen or confirmation of a detected drug may be performed upon request.Substation Supervisor ID - ADMINB-TYPE NATRIURETIC FACTOR (BNP)2023-09-04 02:11:53* Test Item Value Reference Range Interpretation Comme nts B-TYPE NATRIURETIC PEPTIDE (BEAKER) (test code = 700) 1761 pg/mL 0-100 H Substation Supervisor ID - ADMINLACTIC ACID, [id number] 02:10:37* Test Item Value Reference Range Interpretation Comme nts LACTATE BLOOD VENOUS (2) (BEAKER) (test code = 2872) 1.04 mmol/L 0.50-2.00 Specimen slightl y hemolyzed Substation Supervisor ID - [id number] 02:04:37* Test Item Value Reference Range Interpretation Comme nts PHOSPHORUS (BEAKER) (test code = 604) 4.2 mg/dL 2.3-4.7 Specimen sligh tly hemolyzed Substation Supervisor ID - ADMINCOMPREHENSIVE METABOLIC [id number] 02:04:37* Test Item Value Reference Range Interpretation Comme nts TOTAL PROTEIN (BEAKER) (test code = 770) 6.8 gm/dL 6.0-8.3 Specimen slightl y hemolyzed ALBUMIN (BEAKER) (test code = 1145) 3.9 g/dL 3.5-5.0 Specimen slig htly hemolyzed ALKALINE PHOSPHATASE (BEAKER) (test code = 346) 162 U/L 40-150 H BILIRUBIN TOTAL (BEAKER) (test code = 377) 0.3 mg/dL 0.2-1.2 Specimen slightl y hemolyzed SODIUM (BEAKER) (test code = 381) 136 meq/L 136-145 POTASSIUM (BEAKER) (test code = 379) 3.4 meq/L 3.5-5.1 L Specimen sligh tly hemolyzed CHLORIDE (BEAKER) (test code = 382) 103 meq/L 98-107 CO2 (BEAKER) (test code = 355) 19 meq/L 22-29 L BLOOD UREA NITROGEN (BEAKER) (test code = 354) 15 mg/dL 7-21 CREATININE (BEAKER) (test code = 358) 0.75 mg/dL 0.57-1.25 Specimen slightl y hemolyzed GLUCOSE RANDOM (BEAKER) (test code = 652) 88 mg/dL 70-105 CALCIUM (BEAKER) (test code = 697) 8.4 mg/dL 8.4-10.2 AST (SGOT) (BEAKER) (test code = 353) 28 U/L 5-34 Specimen slightl y hemolyzed ALT (SGPT) (BEAKER) (test code = 347) 52 U/L 6-55 Specimen slightl y hemolyzed EGFR (BEAKER) (test code = 1092) 96 mL/min/1.73 sq m Interpretation of eG FR [...] GFR is not applicable for dialysis patients Substation Supervisor ID - [id number] 02:04:36* Test Item Value Reference Range Interpretation Commitz lopez MAGNESIUM (LATOYA) (test code = 627) 2.1 mg/dL 1.6-2.6 Specimen sligh tly hemolyzed Substation Supervisor ID - [id number]-[id number] 01:45:13* Test Item Value Reference Range Interpretation Commitz [facility] D-DIMER QUANTITATIVE (LATOYA ) (test code = 671) 0.62 MG/L FEU <0.50 H Intended Use: The D-Dimer Assay can be used to aid in the diagnosis of Deep Vein Thrombosis (DVT) and Pulmonary Embolism Disease (PED).In patients with low pre- test probability, various studies concerning STA Liatest D-dimer test have reported that with a cutoff value of 0.50 MG/L FEU, the NegativePredictive Value (NPV) regarding the exclusion of thrombosis is within 95-100% range.APTT 2023-09-04 01:42:56* Test Item Value Reference Range Interpretation Commitz lopez PARTIAL THROMBOPLASTIN TIME (LATOYA) (test code = 760) 28.5 seconds 22.5-36.0 PROTHROMBIN TIME/[id number] 01:42:15* Test Item Value Reference Range Interpretation Commitz lopez PROTIME (LATOYA) (test code = 759) 15.8 seconds 11.9-14.2 H INR (LATOYA) (test code = 370) 1.25 <=5.90 RECOMMENDED COUMADIN/WARFARIN INR THERAPY RANGESSTANDARD DOSE: 2.0 - 3.0 Includes: PROPHYLAXIS for venous thrombosis, systemic embolization; TREATMENT for venous thrombosis and/or pulmonary embolus.HIGH RISK: Target INR is 2.5-3.5 for patients with mechanical heart valves.Lactic Acid Whole Wpofc2204-94-90 20:51:22* Test Item Value Reference Range Interpretation Comme [facility] LACTIC ACID (test code = 3969974725) 1.56 mmol/L 0.50-2.20 Lab Interpretation (test cod e = 24444-1) [id number]* Test Item Value Reference Range Interpretation Comme nts CULTURE (BEAKER) (test code = 1095) No growth in 5 days BLOOD UNVNUXW4497-51-83 07:00:09* Test Item Value Reference Range Interpretation Comme nts CULTURE (BEAKER) (test code = 1095) No growth in 5 days T-SPOT(R).[id number] 18:35:00* Test Item Value Reference Range Interpretation Comme nts T-SPOT.TB (test code = 4777324) Negative SeeBelow Normal Value: Ne gativeA negative [...] CORRECTED FOR NEG CONTROL (test code = 7350998) 1 PANEL B SPOT COUNT CORRECTED FOR NEG CONTROL (test code = 2859377) 0 NEGATIVE CONTROL (test code = 6024112) Passed POSITIVE CONTROL (test code = 5049569) Passed LYNDSAY (test code = LYNDSAY) [id number] [facility][id number] 18:35:00* Test Item Value Reference Range Interpretation Comme nts T-SPOT.TB (test code = 0885083) Negative SeeBelow Normal Value: Ne gativeA negative [...] 20150905) 0 NEGATIVE CONTROL (test code = 7473619) Passed POSITIVE CONTROL (test code = 8338939) Passed LYNDSAY (test code = LYNDSAY) [id number] [facility][id number] 18:35:00* Test Item Value Reference Range Interpretation [...] 20150905) 0 NEGATIVE CONTROL (test code = 4957849) Passed POSITIVE CONTROL (test code = 20150907) Passed LYNDSAY (test code = LYNDSAY) [id number] [facility][id number] 18:35:00* Test Item Value Reference Range Interpretation [...] 20150905) 0 NEGATIVE CONTROL (test code = 1577025) Passed POSITIVE CONTROL (test code = 20150907) Passed LYNDSAY (test code = LYNDSAY) [id number] [facility][id number] 18:35:00* Test Item Value Reference Range Interpretation [...] CORRECTED FOR NEG CONTROL (test code = 2034152) 0 NEGATIVE CONTROL (test code = 6070307) Passed POSITIVE CONTROL (test code = 2354900) Passed LYNDSAY (test code = LYNDSAY) [id number] [facility][id number] 18:35:00* Test Item Value Reference Range Interpretation Comme nts T-SPOT.TB (test code = 0115131) Negative SeeBelow Normal Value: Ne gativeA negative [...] CORRECTED FOR NEG CONTROL (test code = 1088640) 1 PANEL B SPOT COUNT CORRECTED FOR NEG CONTROL (test code = 5828454) 0 NEGATIVE CONTROL (test code = 1927689) Passed POSITIVE CONTROL (test code = 1335552) Passed LYNDSAY (test code = LYNDSAY) [id number] [facility][id number] 18:35:00* Test Item Value Reference Range Interpretation Comme nts T-SPOT.TB (test code = 6147676) Negative SeeBelow Normal Value: Ne gativeA negative [...] CORRECTED FOR NEG CONTROL (test code = 4478658) 1 PANEL B SPOT COUNT CORRECTED FOR NEG CONTROL (test code = 5230204) 0 NEGATIVE CONTROL (test code = 0339632) Passed POSITIVE CONTROL (test code = 4692275) Passed LYNDSAY (test code = LYNDSAY) [id number] [facility][id number] 18:35:00* Test Item Value Reference Range Interpretation [...] CORRECTED FOR NEG CONTROL (test code = 8139457) 0 NEGATIVE CONTROL (test code = 8174229) Passed POSITIVE CONTROL (test code = 7993358) Passed LYNDSAY (test code = LYNDSAY) [id number] [facility][id number] 18:35:00* Test Item Value Reference Range Interpretation [...] 20150905) 0 NEGATIVE CONTROL (test code = 2547178) Passed POSITIVE CONTROL (test code = 20150907) Passed LYNDSAY (test code = LYNDSAY) [id number] [facility][id number] 18:35:00* Test Item Value Reference Range Interpretation [...] 20150905) 0 NEGATIVE CONTROL (test code = 6297002) Passed POSITIVE CONTROL (test code = 8789521) Passed LYNDSAY (test code = LYNDSAY) [id number] [facility][id number] 18:35:00* Test Item Value Reference Range Interpretation Comme nts T-SPOT.TB (test code = 2127353) Negative SeeBelow Normal Value: Ne gativeA negative [...] CORRECTED FOR NEG CONTROL (test code = 3075264) 1 PANEL B SPOT COUNT CORRECTED FOR NEG CONTROL (test code = 7065351) 0 NEGATIVE CONTROL (test code = 8301200) Passed POSITIVE CONTROL (test code = 2968787) Passed LYNDSAY (test code = LYNDSAY) [id number] [facility][id number] 18:35:00* Test Item Value Reference Range Interpretation Comme nts T-SPOT.TB (test code = 3105360) Negative SeeBelow Normal Value: Ne gativeA negative [...] CORRECTED FOR NEG CONTROL (test code = 7981388) 1 PANEL B SPOT COUNT CORRECTED FOR NEG CONTROL (test code = 5817691) 0 NEGATIVE CONTROL (test code = 6922993) Passed POSITIVE CONTROL (test code = 1403449) Passed LYNDSAY (test code = LYNDSAY) [id number] [facility][id number] 18:35:00* Test Item Value Reference Range Interpretation [...] CORRECTED FOR NEG CONTROL (test code = 4284842) 0 NEGATIVE CONTROL (test code = 5091396) Passed POSITIVE CONTROL (test code = 1088150) Passed LYNDSAY (test code = LYNDSAY) [id number] [facility][id number] 18:35:00* Test Item Value Reference Range Interpretation Comme nts T-SPOT.TB (test code = 7264975) Negative SeeBelow Normal Value: Ne gativeA negative [...] CORRECTED FOR NEG CONTROL (test code = 3092435) 1 PANEL B SPOT COUNT CORRECTED FOR NEG CONTROL (test code = 20150905) 0 NEGATIVE CONTROL (test code = 2501993) Passed POSITIVE CONTROL (test code = 20150907) Passed LYNDSAY (test code = LYNDSAY) [id number] [facility][id number] 18:35:00* Test Item Value Reference Range Interpretation Comme nts T-SPOT.TB (test code = 55715-0) Negative SeeBelow Normal Value: Ne gativeA negative [...] be interpreted as a quantitative test. PANEL B SPOT COUNT CORRECTED FOR NEG CONTROL (test code = 14184-0) 0 NEGATIVE CONTROL (test code = 73907-0) Passed POSITIVE CONTROL (test code = 22160-7) Passed LYNDSAY (test code = LYNDSAY) [id number] [facility][id number] 18:35:00* Test Item Value Reference Range Interpretation Comme nts T-SPOT.TB (test code = 10547-9) Negative SeeBelow Normal Value: Ne gativeA negative [...] be interpreted as a quantitative test. PANEL B SPOT COUNT CORRECTED FOR NEG CONTROL (test code = 14288-3) 0 NEGATIVE CONTROL (test code = 93015-6) Passed POSITIVE CONTROL (test code = 63099-9) Passed LYNDSAY (test code = LYNDSAY) [id number] [facility][id number] 18:35:00* Test Item Value Reference Range Interpretation Comme nts T-SPOT.TB (test code = 21202-9) Negative SeeBelow Normal Value: Ne gativeA negative [...] be interpreted as a quantitative test. PANEL B SPOT COUNT CORRECTED FOR NEG CONTROL (test code = 50849-3) 0 NEGATIVE CONTROL (test code = 07742-7) Passed POSITIVE CONTROL (test code = 76613-1) Passed LYNDSAY (test code = LYNDSAY) [id number] [facility][id number] 18:35:00* Test Item Value Reference Range Interpretation Comme nts T-SPOT.TB (test code = 17135-4) Negative SeeBelow Normal Value: Ne gativeA negative [...] be interpreted as a quantitative test. PANEL B SPOT COUNT CORRECTED FOR NEG CONTROL (test code = 18084-6) 0 NEGATIVE CONTROL (test code = 29835-5) Passed POSITIVE CONTROL (test code = 12528-2) Passed LYNDSAY (test code = LYNDSAY) [id number] [facility][id number] 18:35:00* Test Item Value Reference Range Interpretation Comme nts T-SPOT.TB (test code = 14839-5) Negative SeeBelow Normal Value: Ne gativeA negative [...] be interpreted as a quantitative test. PANEL B SPOT COUNT CORRECTED FOR NEG CONTROL (test code = 15710-8) 0 NEGATIVE CONTROL (test code = 90745-9) Passed POSITIVE CONTROL (test code = 80495-4) Passed LYNDSAY (test code = LYNDSAY) [id number] [facility][id number] 18:35:00* Test Item Value Reference Range Interpretation Comme nts T-SPOT.TB (test code = 81574-2) Negative SeeBelow Normal Value: Ne gativeA negative [...] be interpreted as a quantitative test. PANEL B SPOT COUNT CORRECTED FOR NEG CONTROL (test code = 94478-9) 0 NEGATIVE CONTROL (test code = 78756-1) Passed POSITIVE CONTROL (test code = 53564-8) Passed LYNDSAY (test code = LYNDSAY) [id number] [facility][id number] 18:35:00* Test Item Value Reference Range Interpretation Comme nts T-SPOT.TB (test code = 01873-4) Negative SeeBelow Normal Value: Ne gativeA negative [...] be interpreted as a quantitative test. PANEL B SPOT COUNT CORRECTED FOR NEG CONTROL (test code = 04066-3) 0 NEGATIVE CONTROL (test code = 83854-5) Passed POSITIVE CONTROL (test code = 78599-3) Passed LYNDSAY (test code = LYNDSAY) [id number] [facility][id number] 18:35:00* Test Item Value Reference Range Interpretation Comme nts T-SPOT.TB (test code = 46976-6) Negative SeeBelow Normal Value: Ne gativeA negative [...] be interpreted as a quantitative test. PANEL B SPOT COUNT CORRECTED FOR NEG CONTROL (test code = 92265-8) 0 NEGATIVE CONTROL (test code = 12192-1) Passed POSITIVE CONTROL (test code = 53360-9) Passed LYNDSAY (test code = LYNDSAY) [id number] [facility][id number] 18:35:00* Test Item Value Reference Range Interpretation Comme nts T-SPOT.TB (test code = 7765498) Negative SeeBelow Normal Value: Ne gativeA negative [...] 20150907) Passed LYNDSAY (test code = LYNDSAY) [id number] [facility][id number] 18:35:00* Test Item Value Reference Range Interpretation [...] 20150905) 0 NEGATIVE CONTROL (test code = 7177488) Passed POSITIVE CONTROL (test code = 2430967) Passed LYNSDAY (test code = LYNDSAY) [id number] [facility][id number] 18:35:00* Test Item Value Reference Range Interpretation Comme [facility] T-SPOT.TB (test code = 8388590) Negative SeeBelow Normal Value: Ne gativeA negative [...] CORRECTED FOR NEG CONTROL (test code = 8503050) 1 PANEL B SPOT COUNT CORRECTED FOR NEG CONTROL (test code = 7345018) 0 NEGATIVE CONTROL (test code = 7806995) Passed POSITIVE CONTROL (test code = 4296670) Passed LYNDSAY (test code = LYNDSAY) [id number] [facility][id number] 18:35:00* Test Item Value Reference Range Interpretation Comme [facility] T-SPOT.TB (test code = 33075-0) Negative SeeBelow Normal Value: Ne gativeA negative [...] be interpreted as a quantitative test. PANEL B SPOT COUNT CORRECTED FOR NEG CONTROL (test code = 44218-8) 0 NEGATIVE CONTROL (test code = 69610-7) Passed POSITIVE CONTROL (test code = 03709-4) Passed LYNDSAY (test code = LYNDSAY) [id number] [facility] Center[facility] ljii4516-70-81 13:41:18 Transesophageal Echocardiography Report (CHETAN) Demographics Patient Name YUE LAWS Date of Study 06/16/2023 ESTELLE Gender Female Visit Number [id number] Race Room Number 1055 Number Date of 1970 Referring Physician Age 53 year(s) Event Specialist Product Demonstrator Interpreting Physician Brian MDProcedure Type of Study [...] regurgitation. No obvious masses on the mitral valve.Tricuspid Valve Partially visualized. Pulmonic Valve Not visualized.[facility]2023-11-28 09:55:41* Test Item Value Reference Range Interpretation Comme nts Result (test code = 6463-4) No MRSA isolated [facility]2023-11-28 09:55:41* Test Item Value Reference Range Interpretation Comme nts Result (test code = 6463-4) No MRSA isolated [facility]2023-11-28 09:55:41* Test Item Value Reference Range Interpretation Comme nts Result (test code = 6463-4) No MRSA isolated [facility] ldgeqm3710-68-90 09:55:41* Test Item Value Reference Range Interpretation Comme nts Result (test code = 6463-4) No MRSA isolated [facility] ogmpcw4449-21-78 09:55:41* Test Item Value Reference Range Interpretation Comme nts Result (test code = 6463-4) No MRSA isolated [facility]2023-11-28 09:55:41* Test Item Value Reference Range Interpretation Comme nts Result (test code = 6463-4) No MRSA isolated [facility]2023-11-28 09:55:41* Test Item Value Reference Range Interpretation Comme nts Result (test code = 6463-4) No MRSA isolated [facility]2023-11-28 09:55:41* Test Item Value Reference Range Interpretation Comme nts Result (test code = 6463-4) No MRSA isolated [facility]2023-11-28 09:55:41* Test Item Value Reference Range Interpretation Comme nts Result (test code = 6463-4) No MRSA isolated [facility] htraqb7329-55-17 09:55:41* Test Item Value Reference Range Interpretation Comme nts Result (test code = 6463-4) No MRSA isolated [facility] tulrpa5862-02-63 09:55:41* Test Item Value Reference Range Interpretation Comme nts Result (test code = 6463-4) No MRSA isolated [facility] yirthj0508-28-93 09:55:41* Test Item Value Reference Range Interpretation Comme nts Result (test code = 6463-4) No MRSA isolated [facility] xurzem0836-10-52 09:55:41* Test Item Value Reference Range Interpretation Comme nts Result (test code = 6463-4) No MRSA isolated [facility] donehc7119-68-80 09:55:41* Test Item Value Reference Range Interpretation Comme nts Result (test code = 6463-4) No MRSA isolated [facility] hmroqq0710-04-15 09:55:41* Test Item Value Reference Range Interpretation Comme nts Result (test code = 6463-4) No MRSA isolated [facility] afcazz9068-77-62 09:55:41* Test Item Value Reference Range Interpretation Comme nts Result (test code = 6463-4) No MRSA isolated [facility] pdgfxl2468-22-23 09:55:41* Test Item Value Reference Range Interpretation Comme nts Result (test code = 6463-4) No MRSA isolated [facility] dtzart5067-90-60 09:55:41* Test Item Value Reference Range Interpretation Comme nts Result (test code = 6463-4) No MRSA isolated [facility] bfcaid3449-17-47 09:55:41* Test Item Value Reference Range Interpretation Comme nts Result (test code = 6463-4) No MRSA isolated [facility] uucjpj0540-24-80 09:55:41* Test Item Value Reference Range Interpretation Comme nts Result (test code = 6463-4) No MRSA isolated [facility] fwqsmf2155-50-86 09:55:41* Test Item Value Reference Range Interpretation Comme nts Result (test code = 6463-4) [facility] 09:55:41* Test Item Value Reference Range Interpretation Comme nts Result (test code = 6463-4) No MRSA isolated [facility] lmmfof4562-23-31 09:55:41* Test Item Value Reference Range Interpretation Comme nts Result (test code = 6463-4) [facility] jihtpq7001-73-23 09:55:41* Test Item Value Reference Range Interpretation Comme nts Result (test code = 6463-4) No MRSA isolated [facility] kbdmwx8623-15-37 09:55:41* Test Item Value Reference Range Interpretation Comme nts Result (test code = 6463-4) No MRSA isolated [facility] yqtada2906-32-99 09:55:41* Test Item Value Reference Range Interpretation Comme nts Result (test code = 6463-4) No MRSA isolated [facility] [id number] 09:55:41* Test Item Value Reference Range Interpretation Comme nts CULTURE (AKER) (test code = 1095) No MRSA isolated CRYPTOCOCCAL OZEJOWJ3219-61-27 15:50:36* Test Item Value Reference Range Interpretation Comme nts CRYPTOCOCCAL ANTIGEN, SERUM (AKER) (test code = 1828) Negative Negative, Interference SPUTUM CULTURE + GRAM IQEPG1396-88-32 10:30:11* Test Item Value Reference Range Interpretation Comme nts CULTURE (AKER) (test code = 1095) PSEUDOMONAS AERUGINOSA A [...] GRAM STAIN RESULT (BEAKER) (test code = 131692) 10-15 epithelial cells GRAM STAIN RESULT (BEAKER) (test code = 185842) 2+ gram positive cocci in chains and pairs GRAM STAIN RESULT (BEAKER) (test code = 089906) 1+ gram negative rods GRAM STAIN RESULT (BEAKER) (test code = 314338) 1+ yeast 2+ Normal respiratory rebel presentVANCOMYCIN LEVEL, [id number] 06:41:26* Test Item Value Reference Range Interpretation Comme nts VANCOMYCIN TROUGH (BEAKER) ( test code = 522) 17.0 ug/mL 10.0-20.0 Substation Supervisor ID - ADMINECHO W CONTRAST & KVATXVM1419-49-45 13:44:03Transthoracic Echocardiography Report (TTE) Demographics Patient Name YUE LAWS Date of Study 06/14/2023 ESTELLE Gender Female Visit Number [id number] Race Room Number 1055 Number Date of 1970 Referring Aydee Go MD Physician Age 53 year(s) Event Specialist Product Demonstrator James Albarran AISHWARYA Interpreting Physician Brian MDProcedure Type of Study [...] m/s MV Peak A-Wave: 1.39 m/s E/A Ratio:0.81 Mean Velocity: 0.91 m/s Peak Gradient: 5.11 [...] mmHg Mean Velocity: 0.86 m/s Mean Gradient: 3.28mmHg LVOT Diameter: 2.03 cm LVOT VTI: 21.8 cm LVOT Area: 3.24 cm^2 LVOT SV:70.52 ml LVOT CO: 6.49 l/min LVOT CI: 3.42 l/min/m^2 Pulmonic Valve Peak Velocity: 0.85 m/s Peak Gradient: 2.89 mmHg[facility] HEMOGLOBIN [id number] 09:26:42* Test Item Value Reference Range Interpretation [...] 5.7- 6.4% indicates increased risk for diabetes (prediabetes)."Substation Supervisor ID - ADMOperator ID - ADMECG 12 cjtt5615-31-92 09:06:12Ventricular Rate 97 BPMAtrial Rate 97 BPMP-R Interval 146 msQRS Duration 96 msQ-T Interval 378 msQTC Calculation(Bazett) 480 msP [place] 68 degreesR [place] 107 degreesT [place] 18 degrees Suspect arm leadreversal, interpretation assumes no reversalNormal sinus rhythmRightward axisNonspecific T wave abnormalityAbnormal ECGWhen compared with ECG of 30-MAR-2023 13:06,QRS axis Shifted rightConfirmed by Luis Lopez ([id number]) on 06/14/2023 9:06:07 [facility] hztf3338-62-43 09:06:12Ventricular Rate 97 BPMAtrial Rate 97 BPMP-R Interval 146 msQRS Duration 96 msQ-T Interval 378 msQTC Calculation(Bazett) 480 msP [place] 68 degreesR [place] 107 degreesT [place] 18 degrees Suspect arm leadreversal, interpretation assumes no reversalNormal sinus rhythmRightward axisNonspecific T wave abno rmalityAbnormal ECGWhen compared with ECG of 30-MAR-2023 13:06,QRS axis Shifted rightConfirmed by Luis Lopez ([id number]) on 06/14/2023 9:06:07 [facility] CenterBASIC METABOLIC ODPBO3306-19-27 04:48:18* Test Item Value Reference Range Interpretation [...] GFR is not applicable for dialysis patients Substation Supervisor ID - ADMINCBC (HEMOGRAM ONLY)2023-06-14 04:22:50* Test [...] 413) 0 /100 WBC 0-0 Strep pneumoniae dmvpiyk3138-62-01 23:34:41* Test Item Value Reference Range Interpretation Comme nts Strep pneumoniae Antigen (test code = 36417-7) Presumptive negative for pneumococcal pneumonia - see [...] the test. Lab Interpretation (test code = 25785-4) [facility] cafdqcz[facility]-66-66 23:34:41* Test Item Value Reference Range Interpretation Comme nts Strep pneumoniae Antigen (test code = 95328-2) Presumptive negative for pneumococcal pneumonia - see [...] the test. Lab Interpretation (test code = 40931-4) [facility] nmzhmkh8354-62-75 23:34:41* Test Item Value Reference Range Interpretation Comme nts Strep pneumoniae Antigen (test code = 25225-4) Presumptive negative for pneumococcal pneumonia - see [...] the test. Lab Interpretation (test code = 51221-8) [facility] embncvj1034-19-03 23:34:41* Test Item Value Reference Range Interpretation Comme nts Strep pneumoniae Antigen (test code = 06357-6) Presumptive negative for pneumococcal pneumonia - see [...] the test. Lab Interpretation (test code = 75955-1) [facility] iosxwgz0385-51-09 23:34:41* Test Item Value Reference Range Interpretation Comme nts Strep pneumoniae Antigen (test code = 41232-5) Presumptive negative for pneumococcal pneumonia - see [...] the test. Lab Interpretation (test code = 85704-0) [facility] vvkifrr0462-76-55 23:34:41* Test Item Value Reference Range Interpretation Comme nts Strep pneumoniae Antigen (test code = 91382-6) Presumptive negative for pneumococcal pneumonia - see [...] the test. Lab Interpretation (test code = 99646-0) [facility] kovpjgv6669-69-49 23:34:41* Test Item Value Reference Range Interpretation Comme nts Strep pneumoniae Antigen (test code = 88631-1) Presumptive negative for pneumococcal pneumonia - see [...] the test. Lab Interpretation (test code = 65826-6) [facility] zkbvudo2403-87-62 23:34:41* Test Item Value Reference Range Interpretation Comme nts Strep pneumoniae Antigen (test code = 26801-2) Presumptive negative for pneumococcal pneumonia - see [...] the test. Lab Interpretation (test code = 67914-5) [facility] xuhyycv5846-19-04 23:34:41* Test Item Value Reference Range Interpretation Comme nts Strep pneumoniae Antigen (test code = 43206-0) Presumptive negative for pneumococcal pneumonia - see [...] the test. Lab Interpretation (test code = 09699-6) [facility] ndltbug5417-08-03 23:34:41* Test Item Value Reference Range Interpretation Comme nts Strep pneumoniae Antigen (test code = 54134-1) Presumptive negative for pneumococcal pneumonia - see [...] the test. Lab Interpretation (test code = 45122-4) [facility] yccwlis8209-10-43 23:34:41* Test Item Value Reference Range Interpretation Comme nts Strep pneumoniae Antigen (test code = 55301-4) Presumptive negative for pneumococcal pneumonia - see [...] the test. Lab Interpretation (test code = 80685-7) [facility] jzpbxcp5040-00-40 23:34:41* Test Item Value Reference Range Interpretation Comme nts Strep pneumoniae Antigen (test code = 21382-4) Presumptive negative for pneumococcal pneumonia - see [...] the test. Lab Interpretation (test code = 61310-2) [facility] aqotmuf4190-80-33 23:34:41* Test Item Value Reference Range Interpretation Comme nts Strep pneumoniae Antigen (test code = 20296-9) Presumptive negative for pneumococcal pneumonia - see [...] the test. Lab Interpretation (test code = 85030-0) [facility] klfqohw8906-28-41 23:34:41* Test Item Value Reference Range Interpretation Comme nts Strep pneumoniae Antigen (test code = 38350-1) Presumptive negative for pneumococcal pneumonia - see [...] the test. Lab Interpretation (test code = 22614-2) [facility] pgghkdy9111-22-66 23:34:41* Test Item Value Reference Range Interpretation Comme nts Strep pneumoniae Antigen (test code = 31837-3) Presumptive negative for pneumococcal pneumonia - see [...] the test. Lab Interpretation (test code = 79927-1) [facility] ihzlsii4714-92-46 23:34:41* Test Item Value Reference Range Interpretation Comme nts Strep pneumoniae Antigen (test code = 69725-9) Presumptive negative for pneumococcal pneumonia - see [...] the test. Lab Interpretation (test code = 59898-9) [facility] kpxcvst3247-54-07 23:34:41* Test Item Value Reference Range Interpretation Comme nts Strep pneumoniae Antigen (test code = 38409-9) Presumptive negative for pneumococcal pneumonia - see [...] the test. Lab Interpretation (test code = 06249-1) [facility] ofmvxzg6580-11-02 23:34:41* Test Item Value Reference Range Interpretation Comme nts Strep pneumoniae Antigen (test code = 70640-5) Presumptive negative for pneumococcal pneumonia - see [...] the test. Lab Interpretation (test code = 14164-9) [facility] [id number] 23:34:41* Test Item Value Reference Range Interpretation Comme nts Strep pneumoniae Antigen (test code = 00790-9) Presumptive negative for pneumococcal pneumonia - see [...] the test. Lab Interpretation (test code = 12249-5) [facility] [id number] 23:34:41* Test Item Value Reference Range Interpretation Comme nts Strep pneumoniae Antigen (test code = 06445-9) Presumptive negative for pneumococcal pneumonia - see [...] the test. Lab Interpretation (test code = 29592-7) [facility] [id number] 23:34:41* Test Item Value Reference Range Interpretation Comme nts Strep pneumoniae Antigen (test code = 24327-2) Presumptive negative for pneumococcal pneumonia - see [...] the test. Lab Interpretation (test code = 99639-1) [facility] [id number] 23:34:41* Test Item Value Reference Range Interpretation Comme nts Strep pneumoniae Antigen (test code = 38681-5) Presumptive negative for pneumococcal pneumonia - see [...] the test. Lab Interpretation (test code = 74719-0) [facility] [id number] 23:34:41* Test Item Value Reference Range Interpretation Comme nts Strep pneumoniae Antigen (test code = 49666-4) Presumptive negative for pneumococcal pneumonia - see [...] the test. Lab Interpretation (test code = 12590-5) [facility] [id number] 23:34:41* Test Item Value Reference Range Interpretation Comme nts Strep pneumoniae Antigen (test code = 81245-2) Presumptive negative for pneumococcal pneumonia - see [...] the test. Lab Interpretation (test code = 02101-8) [facility] [id number] 23:34:41* Test Item Value Reference Range Interpretation Comme nts Strep pneumoniae Antigen (test code = 95899-6) Presumptive negative for pneumococcal pneumonia - see [...] the test. Lab Interpretation (test code = 44935-1) [facility] [id number] 23:34:41* Test Item Value Reference Range Interpretation Comme nts Strep pneumoniae Antigen (test code = 20744-6) Presumptive negative for pneumococcal pneumonia - see [...] the test. Lab Interpretation (test code = 61700-4) [facility] PNEUMONIAE [id number] 23:34:41* Test Item Value Reference Range Interpretation [...] detection limit of the test. Legionella antigen, [id number] 23:29:07* Test Item Value Reference Range Interpretation Comme nts Legionella Urine Antigen (test code = 18659-4) Negative - see comment Negative Negative for L. pneumophila serogroup 1 antigen, suggesting no recent or current infection with this serogroup. Legionellosis cannot be ruled out since other serogroups and species may cause disease. Lab Interpretation (test code = 21330-2) [facility], [id number] 23:29:07* Test Item Value Reference Range Interpretation Comme nts Legionella Urine Antigen (test code = 40588-6) Negative - see comment Negative Negative for L. pneumophila serogroup 1 antigen, suggesting no recent or current infection with this serogroup. Legionellosis cannot be ruled out since other serogroups and species may cause disease. Lab Interpretation (test code = 06920-2) [facility], [id number] 23:29:07* Test Item Value Reference Range Interpretation Comme [facility] Legionella Urine Antigen (test code = 28465-4) Negative - see comment Negative Negative for L. pneumophila serogroup 1 antigen, suggesting no recent or current infection with this serogroup. Legionellosis cannot be ruled out since other serogroups and species may cause disease. Lab Interpretation (test code = 40638-3) [facility], [id number] 23:29:07* Test Item Value Reference Range Interpretation Comme nts Legionella Urine Antigen (test code = 80254-8) Negative - see comment Negative Negative for L. pneumophila serogroup 1 antigen, suggesting no recent or current infection with this serogroup. Legionellosis cannot be ruled out since other serogroups and species may cause disease. Lab Interpretation (test code = 18368-5) [facility], [id number] 23:29:07* Test Item Value Reference Range Interpretation Comme nts Legionella Urine Antigen (test code = 63081-9) Negative - see comment Negative Negative for L. pneumophila serogroup 1 antigen, suggesting no recent or current infection with this serogroup. Legionellosis cannot be ruled out since other serogroups and species may cause disease. Lab Interpretation (test code = 78399-4) [facility], [id number] 23:29:07* Test Item Value Reference Range Interpretation Comme nts Legionella Urine Antigen (test code = 99450-6) Negative - see comment Negative Negative for L. pneumophila serogroup 1 antigen, suggesting no recent or current infection with this serogroup. Legionellosis cannot be ruled out since other serogroups and species may cause disease. Lab Interpretation (test code = 37544-6) [facility], [id number] 23:29:07* Test Item Value Reference Range Interpretation Comme nts Legionella Urine Antigen (test code = 78889-0) Negative - see comment Negative Negative for L. pneumophila serogroup 1 antigen, suggesting no recent or current infection with this serogroup. Legionellosis cannot be ruled out since other serogroups and species may cause disease. Lab Interpretation (test code = 50611-0) [facility], [id number] 23:29:07* Test Item Value Reference Range Interpretation Comme nts Legionella Urine Antigen (test code = 24920-4) Negative - see comment Negative Negative for L. pneumophila serogroup 1 antigen, suggesting no recent or current infection with this serogroup. Legionellosis cannot be ruled out since other serogroups and species may cause disease. Lab Interpretation (test code = 81470-6) [facility] antigen, [id number] 23:29:07* Test Item Value Reference Range Interpretation Comme nts Legionella Urine Antigen (test code = 32647-8) Negative - see comment Negative Negative for L. pneumophila serogroup 1 antigen, suggesting no recent or current infection with this serogroup. Legionellosis cannot be ruled out since other serogroups and species may cause disease. Lab Interpretation (test code = 61041-4) [facility], [id number] 23:29:07* Test Item Value Reference Range Interpretation Comme nts Legionella Urine Antigen (test code = 16866-1) Negative - see comment Negative Negative for L. pneumophila serogroup 1 antigen, suggesting no recent or current infection with this serogroup. Legionellosis cannot be ruled out since other serogroups and species may cause disease. Lab Interpretation (test code = 70319-3) [facility], [id number] 23:29:07* Test Item Value Reference Range Interpretation Comme nts Legionella Urine Antigen (test code = 34380-9) Negative - see comment Negative Negative for L. pneumophila serogroup 1 antigen, suggesting no recent or current infection with this serogroup. Legionellosis cannot be ruled out since other serogroups and species may cause disease. Lab Interpretation (test code = 13315-8) [facility], [id number] 23:29:07* Test Item Value Reference Range Interpretation Comme nts Legionella Urine Antigen (test code = 56917-8) Negative - see comment Negative Negative for L. pneumophila serogroup 1 antigen, suggesting no recent or current infection with this serogroup. Legionellosis cannot be ruled out since other serogroups and species may cause disease. Lab Interpretation (test code = 34962-1) [facility], [id number] 23:29:07* Test Item Value Reference Range Interpretation Comme nts Legionella Urine Antigen (test code = 91944-0) Negative - see comment Negative Negative for L. pneumophila serogroup 1 antigen, suggesting no recent or current infection with this serogroup. Legionellosis cannot be ruled out since other serogroups and species may cause disease. Lab Interpretation (test code = 11404-8) [facility] Center[facility] antigen, [id number] 23:29:07* Test Item Value Reference Range Interpretation Comme nts Legionella Urine Antigen (test code = 74841-7) Negative - see comment Negative Negative for L. pneumophila serogroup 1 antigen, suggesting no recent or current infection with this serogroup. Legionellosis cannot be ruled out since other serogroups and species may cause disease. Lab Interpretation (test code = 92103-7) [facility] Center[facility], [id number] 23:29:07* Test Item Value Reference Range Interpretation Comme nts Legionella Urine Antigen (test code = 90913-4) Negative - see comment Negative Negative for L. pneumophila serogroup 1 antigen, suggesting no recent or current infection with this serogroup. Legionellosis cannot be ruled out since other serogroups and species may cause disease. Lab Interpretation (test code = 86663-2) [facility], [id number] 23:29:07* Test Item Value Reference Range Interpretation Comme nts Legionella Urine Antigen (test code = 61104-9) Negative - see comment Negative Negative for L. pneumophila serogroup 1 antigen, suggesting no recent or current infection with this serogroup. Legionellosis cannot be ruled out since other serogroups and species may cause disease. Lab Interpretation (test code = 30673-6) [facility], [id number] 23:29:07* Test Item Value Reference Range Interpretation Comme nts Legionella Urine Antigen (test code = 01851-8) Negative - see comment Negative Negative for L. pneumophila serogroup 1 antigen, suggesting no recent or current infection with this serogroup. Legionellosis cannot be ruled out since other serogroups and species may cause disease. Lab Interpretation (test code = 57260-7) [facility] antigen, [id number] 23:29:07* Test Item Value Reference Range Interpretation Comme nts Legionella Urine Antigen (test code = 26952-7) Negative - see comment Negative Negative for L. pneumophila serogroup 1 antigen, suggesting no recent or current infection with this serogroup. Legionellosis cannot be ruled out since other serogroups and species may cause disease. Lab Interpretation (test code = 84677-5) [facility] Center[facility] antigen, [id number] 23:29:07* Test Item Value Reference Range Interpretation Comme nts Legionella Urine Antigen (test code = 37138-1) Negative - see comment Negative Negative for L. pneumophila serogroup 1 antigen, suggesting no recent or current infection with this serogroup. Legionellosis cannot be ruled out since other serogroups and species may cause disease. Lab Interpretation (test code = 30012-5) [facility] Center[facility] antigen, [id number] 23:29:07* Test Item Value Reference Range Interpretation Comme nts Legionella Urine Antigen (test code = 40151-4) Negative - see comment Negative Negative for L. pneumophila serogroup 1 antigen, suggesting no recent or current infection with this serogroup. Legionellosis cannot be ruled out since other serogroups and species may cause disease. Lab Interpretation (test code = 55149-9) [facility] Center[facility] antigen, [id number] 23:29:07* Test Item Value Reference Range Interpretation Comme nts Legionella Urine Antigen (test code = 20044-5) Negative - see comment Negative Negative for L. pneumophila serogroup 1 antigen, suggesting no recent or current infection with this serogroup. Legionellosis cannot be ruled out since other serogroups and species may cause disease. Lab Interpretation (test code = 25540-0) [facility] Center[facility], [id number] 23:29:07* Test Item Value Reference Range Interpretation Comme nts Legionella Urine Antigen (test code = 80567-9) Negative - see comment Negative Negative for L. pneumophila serogroup 1 antigen, suggesting no recent or current infection with this serogroup. Legionellosis cannot be ruled out since other serogroups and species may cause disease. Lab Interpretation (test code = 59671-9) [facility], [id number] 23:29:07* Test Item Value Reference Range Interpretation Comme nts Legionella Urine Antigen (test code = 27563-6) Negative - see comment Negative Negative for L. pneumophila serogroup 1 antigen, suggesting no recent or current infection with this serogroup. Legionellosis cannot be ruled out since other serogroups and species may cause disease. Lab Interpretation (test code = 05844-0) [facility] Center[facility] antigen, [id number] 23:29:07* Test Item Value Reference Range Interpretation Comme nts Legionella Urine Antigen (test code = 86475-5) Negative - see comment Negative Negative for L. pneumophila serogroup 1 antigen, suggesting no recent or current infection with this serogroup. Legionellosis cannot be ruled out since other serogroups and species may cause disease. Lab Interpretation (test code = 15496-3) [facility] Center[facility] antigen, [id number] 23:29:07* Test Item Value Reference Range Interpretation Comme nts Legionella Urine Antigen (test code = 68716-2) Negative - see comment Negative Negative for L. pneumophila serogroup 1 antigen, suggesting no recent or current infection with this serogroup. Legionellosis cannot be ruled out since other serogroups and species may cause disease. Lab Interpretation (test code = 79114-6) [facility] antigen, [id number] 23:29:07* Test Item Value Reference Range Interpretation Comme nts Legionella Urine Antigen (test code = 65434-8) Negative - see comment Negative Negative for L. pneumophila serogroup 1 antigen, suggesting no recent or current infection with this serogroup. Legionellosis cannot be ruled out since other serogroups and species may cause disease. Lab Interpretation (test code = 73567-9) [facility] CenterLEGIONELLA ANTIGEN, [id number] 23:29:07* Test Item Value Reference Range Interpretation Comme nts L. PNEUMOPHILA SEROGP 1 UR AG (BEAKER) (test code = 1156) Negative - see comment Negative Negative for L. pneumophila serogroup 1 antigen, suggesting no recent or current infection with this serogroup. Legionellosis cannot be ruled out since other serogroups and species may cause disease. Venous doppler arm, [id number] 20:05:32[facility] - Upper Extremities Veins Demographics Patient Name YUE LAWS Date of Study 06/13/2023 ESTELLE Age 53 Visit Number [id number] Gender Female Accession Number [id number] Date of 1970 Referring Cara Burgess Room Number 1055 Physician Event Specialist Product Demonstrator Lisa Ruiz Interpreting John Solorio, Physician FellowProcedureType [...] in cm/s ; [facility]-1/2 [id number] 18:36:40* Test Item Value Reference Range Interpretation Comme nts HIV-1 ANTIGEN WITH HIV 1\\T\\2 ANTIBODY (2) (BEAKER) (test code = 2586) Nonreactive Nonreactive MR lumbar spine without & with IV [id number] 14:53:29MR LUMBAR SPINE WITH & WITHOUT IV CONTRAST INDICATION: Lumbar radiculopathy, prior surgery, new symptoms COMPARISON: 03/30/2023 TECHNIQUE: Multiplanar, multisequence MR images of the lumbar spine withand without contrast. FINDINGS: Numbering: Last fully formed disc space is designated L5-S1. Spinal cord: The conus medullaris is normal is size, signal intensity,and position, terminating at theL1 level. Reduced cauda equinaredundancy above the L3-4 [...] Disc bulge with bilateral subarticular recess encroachment,laminectomy withpatent canal but dorsal fluid collection and facethypertrophy contributes to subarachnoid space effacement with moderatecrowding of the cauda equina. Moderate to severe left and moderate rightneural foraminal stenosis. L4/L5: Laminectomy, diffuse disc bulge with subarticular recessencroachment but patent canal. Moderate to severe bilateral neuralforaminal stenosis. L5/S1: Disc bulge, facet arthropathy, mild to moderate bilateral neuralforaminal stenosis without significant central spinal canal s tenosis. Paraspinal soft tissues: L3-4 laminectomy contains T2 hyperintense fluidmeasuring 3.3 x 1.7 x 1.7 cm. Dorsal paraspinal musculature E2qkyuhueaqwqxae. Postcontrast imaging demonstrates mild peripheralenhancement of the dorsal paraspinal fluid collection. Left adrenalgland 2.9 cm nodule.[facility]MR [facility] WITH & WITHOUT IV [id number] 14:53:29[facility] [...] 1.7 x 1.7 cm. Dorsal paraspinal musculature L7pzfrozpscngoof. Postcontrast imaging demonstrates mild peripheralenhancement of the [...] Signed By: Ryan Buckley06/13/2023 14:55 CDTWorkstation Name: [id number] KINASE (CK)2023-06-13 11:54:02* Test Item Value Reference Range Interpretation Comme nts CREATINE KINASE TOTAL (BEAKE R) (test code = 380) 43 U/L 29-200 Substation Supervisor ID - ADMINCOMPREHENSIVE METABOLIC [id number] 06:48:22* Test Item Value Reference Range Interpretation [...] GFR is not applicable for dialysis patients Substation Supervisor ID - ADMINPROTHROMBIN TIME/[id number] 06:40:01* Test Item Value Reference Range Interpretation [...] code = 2801) 1.70 % 0.00-1.00 H [id number] 05:26:09* Test Item Value Reference Range Interpretation Comme nts MAGNESIUM (BEAKER) (test cod e = 627) 2.0 mg/dL 1.6-2.6 Substation Supervisor ID - [id number] 05:26:09* Test Item Value Reference Range Interpretation Comme nts PHOSPHORUS (BEAKER) (test co de = 604) 3.5 mg/dL 2.3-4.7 Substation Supervisor ID - ADMINBASIC METABOLIC [id number] 05:26:08* Test Item Value Reference Range Interpretation [...] GFR is not applicable for dialysis patients Substation Supervisor ID - ADMINCBC W/PLT COUNT & AUTO [id number] 05:11:15* Test Item Value Reference Range Interpretation [...] 0.70 % 0.00-1.00 XR spine lumbar 1 [id number] 10:32:20XR SPINE LUMBAR 1 VIEW CLINICAL INDICATION: L3-4 LAMINECTOMY [facility] [id number] 10:32:20 [facility] 1970 Sex: FXR SPINE LUMBAR 1 VIEWCLINICAL INDICATION: L3-4 LAMINECTOMYCOMPARISON: NoneIMPRESSION:A single lateral view of the lumbar spine is obtained intraoperatively.The posterior approach surgical instrument is seen at the L3-L4 level,inferior to the L3 spinous process. Results were communicated to , who concurred with the above findings. Electronically Signed By: Maxim Ramos08/01/2022 10:34 CDTWo rkstation Name: [id number] SPINE LUMBAR 1 [id number] 10:29:18 [facility] 1970 Sex: FCLINICAL [...] Signed By: Maxim Ramos08/01/2022 10:31 CDTWorkstation Name: [id number] Screen, [id number] 05:32:52* Test Item Value Reference Range Interpretation Comme nts Preg Test, Ur (test code = 2112-1) Negative Negative Lab Interpretation (test cod e = 28976-3) [facility] CenterPregnancy Screen, [id number] 05:32:52* Test Item Value Reference Range Interpretation Comme nts Preg Test, Ur (test code = 2111-1) Negative Negative Lab Interpretation (test cod e = 06091-1) [facility]Pregnancy [facility], [id number] 05:32:52* Test Item Value Reference Range Interpretation Comme nts Preg Test, Ur (test code = 2111-1) Negative Negative Lab Interpretation (test cod e = 59423-8) [facility]Pregnancy [facility], [id number] 05:32:52* Test Item Value Reference Range Interpretation Comme nts Preg Test, Ur (test code = 2111-) Negative Negative Lab Interpretation (test cod e = 94354-8) [facility], [id number] 05:32:52* Test Item Value Reference Range Interpretation Comme nts Preg Test, Ur (test code = 2111-) Negative Negative Lab Interpretation (test cod e = 62661-3) [facility], [id number] 05:32:52* Test Item Value Reference Range Interpretation Comme nts Preg Test, Ur (test code = 2111-) Negative Negative Lab Interpretation (test cod e = 73226-9) [facility], [id number] 05:32:52* Test Item Value Reference Range Interpretation Comme nts Preg Test, Ur (test code = 2111-) Negative Negative Lab Interpretation (test cod e = 17147-8) [facility] CenterPregnancy [facility], [id number] 05:32:52* Test Item Value Reference Range Interpretation Comme nts Preg Test, Ur (test code = 2111-) Negative Negative Lab Interpretation (test cod e = 89588-2) [facility] CenterP[facility], [id number] 05:32:52* Test Item Value Reference Range Interpretation Comme nts Preg Test, Ur (test code = 2111-1) Negative Negative Lab Interpretation (test cod e = 08137-0) [facility], [id number] 05:32:52* Test Item Value Reference Range Interpretation Comme nts Preg Test, Ur (test code = 2111-1) Negative Negative Lab Interpretation (test cod e = 17402-8) [facility], [id number] 05:32:52* Test Item Value Reference Range Interpretation Comme nts Preg Test, Ur (test code = 2-1) Negative Negative Lab Interpretation (test cod e = 56538-8) [facility], [id number] 05:32:52* Test Item Value Reference Range Interpretation Comme nts Preg Test, Ur (test code = 2-) Negative Negative Lab Interpretation (test cod e = 82659-1) [facility], [id number] 05:32:52* Test Item Value Reference Range Interpretation Comme nts Preg Test, Ur (test code = 2111-) Negative Negative Lab Interpretation (test cod e = 89784-7) [facility], [id number] 05:32:52* Test Item Value Reference Range Interpretation Comme nts Preg Test, Ur (test code = 2111-) Negative Negative Lab Interpretation (test cod e = 42630-1) [facility], [id number] 05:32:52* Test Item Value Reference Range Interpretation Comme nts Preg Test, Ur (test code = 2111-) Negative Negative Lab Interpretation (test cod e = 41315-2) [facility], [id number] 05:32:52* Test Item Value Reference Range Interpretation Comme nts Preg Test, Ur (test code = 2111-) Negative Negative Lab Interpretation (test cod e = 65135-6) [facility], [id number] 05:32:52* Test Item Value Reference Range Interpretation Comme nts Preg Test, Ur (test code = 2111-) Negative Negative Lab Interpretation (test cod e = 31453-5) [facility], [id number] 05:32:52* Test Item Value Reference Range Interpretation Comme nts Preg Test, Ur (test code = 2111-) Negative Negative Lab Interpretation (test cod e = 30534-0) [facility], [id number] 05:32:52* Test Item Value Reference Range Interpretation Comme nts Preg Test, Ur (test code = 2111-1) Negative Negative Lab Interpretation (test cod e = 08439-4) [facility] CenterPregnancy Screen, [id number] 05:32:52* Test Item Value Reference Range Interpretation Comme nts Preg Test, Ur (test code = 2111-) Negative Negative Lab Interpretation (test cod e = 64249-1) [facility], [id number] 05:32:52* Test Item Value Reference Range Interpretation Comme nts Preg Test, Ur (test code = 2111-) Negative Negative Lab Interpretation (test cod e = 18999-6) Normal [facility], [id number] 05:32:52* Test Item Value Reference Range Interpretation Comme nts Preg Test, Ur (test code = 2111-) Negative Negative Lab Interpretation (test cod e = 41915-7) Normal [facility], zzhmu7445-20-73 05:32:52* Test Item Value Reference Range Interpretation Comme nts Preg Test, Ur (test code = 2111-) Negative Negative Lab Interpretation (test cod e = 14215-7) Normal [facility], [id number] 05:32:52* Test Item Value Reference Range Interpretation Comme nts Preg Test, Ur (test code = 2111-) Negative Negative Lab Interpretation (test cod e = 84607-4) Normal [facility] Center[facility], [id number] 05:32:52* Test Item Value Reference Range Interpretation Comme nts Preg Test, Ur (test code = 2111-) Negative Negative Lab Interpretation (test cod e = 74550-5) Normal [facility], [id number] 05:32:52* Test Item Value Reference Range Interpretation Comme nts Preg Test, Ur (test code = 2111-) Negative Negative Lab Interpretation (test cod e = 24420-9) Normal [facility], jbgfd1411-28-41 05:32:52* Test Item Value Reference Range Interpretation Comme nts Preg Test, Ur (test code = 2112-1) Negative Negative Lab Interpretation (test cod e = 15276-5) Normal [facility], [id number] 05:32:52* Test Item Value Reference Range Interpretation Comme nts Preg Test, Ur (test code = 2112-1) Negative Negative Lab Interpretation (test cod e = 92415-4) Normal [facility], [id number] 05:32:52* Test Item Value Reference Range Interpretation Comme nts Preg Test, Ur (test code = 2-1) Negative Negative Lab Interpretation (test cod e = 99151-6) Normal [facility] CenterPREGNANCY SCREEN, [id number] 05:32:52* Test Item Value Reference Range Interpretation Comme nts TEST URINE (BEAKER ) (test code = 583) Negative Negative BASIC METABOLIC [id number] 23:30:54* Test Item Value Reference Range Interpretation [...] GFR is not applicable for dialysis patients Substation Supervisor ID - ADMINPT/[id number] 23:15:33* Test Item Value Reference Range Interpretation [...] H CT neck soft tissue without IV ikndwysh9081-93-14 13:45:22EXAM: CT NECK SOFT TISSUE WITHOUT IV [...] Postoperative changes from anterior cervical discectomy fusionat C3-M9Wisvpbtv Lung Apices: NormalCH[facility] HospitalCT NECK SOFT TISSUE WITHOUT IV [id number] 13:45:22 [facility] [...] Postoperative changes from anterior cervical discectomy fusionat C3-Y5Ztniunfo Lung Apices: NormalIMPRESSION:Exam limited by lack of intravenous contrast.1. 1.8 x 2.9 x 1.3 cm ill-defined fluid collection in the leftanterolateral neck soft tissues, suggesting evolving postoperativehemorrhage. Superimposed infection is not ex cluded.2. Retropharyngeal fluid and air measuring up to 0.8 cm in thickness,favored to be present postoperative right frontal edema. Superimposedinfection is not excluded.3. Postoperative changes from ACDF at C3- Y9Rhjwnosesexboa Signed By: Maxim Ramos07/31/2022 13:47 CDTWorkstation Name: [id number] METABOLIC [id number] 08:13:13* Test Item Value Reference Range Interpretation [...] GFR is not applicable for dialysis patients Substation Supervisor ID - BVCBC W/PLT COUNT & AUTO DWKVJSASUJQG0551-39-28 07:46:31* Test Item Value Reference Range Interpretation [...] 0.00-1.00 XR spine cervical 2 or 3 hybom1686-01-32 20:24:23TECHNIQUE: Frontal and lateral views of the cervical spine. INDICATION: Postop Standing Films. COMPARISON: None.[facility] CenterXR SPINE CERVICAL 2 OR 3 [id number] 20:24:23[facility] 1970 Sex: FTECHNIQUE: [...] Signed By: Zachariah Garcia05/28/2023 20:26 CDTWorkstation Name: [id number] fluoro non-specific up to 1 hour 2023-05-28 11:45:16This is a non-reportable study with no Radiologist dictation. Please refer to your PACS to review images, or Doc Flowsheets for documentation on studies without images.[facility] CenterFL FLUORO NON-SPECIFIC UP TO 1 [id number] 11:45:16 [facility] : 1970 Sex: FThis is a non- reportable study with no Radiologist dictation. Please refer to your PACS to review images, or Doc Flowsheets for documentation on studies without images.FL FLUORO NON-SPECIFIC UP TO 1 [id number] 10:13:02 [facility] : 1970 Sex: FTECHNIQUE: 1 lateral fluoroscopic image of the cervical spine forlocalization.Fluoroscopic time: 3second(s).FINDINGS:The surgical pointer is at C3-C4.The findings were discussed with Dr. Garcia in theOR who concurred withthe findings.IMPRESSION:Intraoperative localization plain film as described abo ve.Electronically Signed By: Derik Reyez05/28/2023 10:15 CDTWorkstation Name: [id number], QUANTITATIVE, [id number] 08:21:03* Test Item Value Reference Range Interpretation Comme nts GONADOTROPIN, CHORIONIC (HCG ) QUANT (BEAKER) (test code = 649) < mIU/mL 0-10 Non- Females: <10 mIU/mL Females: Gestation Age Reference Range(mIU/mL) 0.2-1 Week 5-50 1-2 Weeks 50-500 2-3 Weeks 100-5,000 3-4 Weeks 500-10,000 4-5 Weeks 1,000-50,000 5-6 Weeks 10,000-100,000 6-8 Weeks 15,000- 200,000 2-3 Months 10,000-100,000 Substation Supervisor ID - ADMINCULTURE, [id number] 09:28:30SPECIMEN NUMBER: [id number] CULTURE, URINE SPECIMEN NUMBER: [id number] SPECIMEN COMMENT: URINE SOURCE: URINE REPORT STATUS: FINAL FINAL REPORT: 05/15/2023 >100,000 CFU/ML UROGENITAL REBEL PRESENT NOCOMMON PATHOGENS UNLESS OTHERWISE INDICATED, ALL TESTING PERFORMED AT [facility] [address] [place] [address] WRAP YARN SORTER: JANNY STEINER M.D. CLIA NUMBER [id number] [place]. [id number], [id number] 12:02:50SPECIMEN NUMBER: [id number] CULTURE, URINE SPECIMEN NUMBER: [id number] SOURCE: URINE REPORT STATUS: FINAL FINAL REPORT: 05/13/2023 NO SPECIMEN RECEIVED FOR TESTING. CHARGES DELETED.BASIC METABOLIC [id number] 04:48:43* Test Item Value Reference Range Interpretation Comme nts GLUCOSE (test code = 2217) 117 MG/DL 70-99 H BUN (test code = 2208) 20 MG/DL 6-20 CREATININE (test code = 2214) 0.83 MG/DL 0.60-1.30 eGFR (2020 CKD-EPI) (test co de = 24183) 85 ML/MIN/1.73 >60 SODIUM (test code = [...] 12.7 SECONDS 12.5-14.7 INR (test code = 63335) 0.9 SEE BELOW CURRENT RECOMMENDATIONS ARE FOR AN INR OF 2.0-3.0 FOR ALL PATIENTS ON VITAMIN K ANTAGONISTS, EXCEPT THOSE WITH PROSTHETIC HEART VALVES, FOR WHOM INR OF 2.5-3.5 IS RECOMMENDED. UNLESS OTHERWISE INDICATED, ALL TESTING PERFORMED AT [facility] [address] [place] [address] WRAP YARN SORTER: JANNY STEINER M.D. CLIA NUMBER [id number] [facility] [place]. [id number] CBC W/AUTO DIFF WITH [id number] 01:54:17* Test Item Value Reference Range Interpretation [...] = 1065) 0.0 /100 WBC'S See_Comment [Automated Pepscana ge] The system which generated this result [...] H ABS NUCLEATED RBCS (test code = 86540) 0.00 K/UL 0.00-0.11 ECG 12 pzba9782-17-14 14:02:48Ventricular Rate 102 BPMAtrial Rate 102 BPMP-R Interval 146 msQRS Duration 90 msQ-T Interval 372 msQTC Calculation(Bazett) 484 msP [place] 11 degreesR [place] -53 degreesT [place] 29 degrees Sinus tachycardiaPossible Left atrial enlargementLeft axis deviationPoor R wave progression Cannot rule out Anterior infarct , age undetermined vs lead misplacementNonspecific T wave abnormalityProlonged QTAbnormal ECGNo previous ECGs availableConfirmed by David GARCIA BASANT ([id number]) on 04/06/2023 2:02:46 [facility] W CONTRAST & [id number] 13:11:39Transthoracic Echocardiography Report (TTE) Demographics Patient Name YUE LAWS Date of Study 03/31/2023 ESTELLE Gender Female Visit Number [id number] Race Room Number 2227 Number Date of 1970 Referring Physician Mariah Aldridge MD Age 53 year(s) Event Specialist Product Demonstrator Wilmer Francois Electrical Engineering Intern Josefina Corbett, [facility] Interpreting Physician Melody MDProcedure Type of [...] 1185.1 msec AV DVI: 0.78 LVOT Peak Velocity:1.12 m/s Peak Gradient: 5.06 mmHg Mean Velocity: 0.74 m/s Mean Gradient: 2.54 mmHg LVOT Diameter: 2.19 cm LVOT VTI: 20.18 cm LVOT Area: 3.77 cm^2 LVOT SV:75.98 ml LVOT CO: 5.7 l/min LVOT CI: 2.97 l/min/m^2 Tricuspid Valve TR Velocity: 2.73 m/s TR Gradient: 29.86 mmHg Pulmonic Valve Peak Velocity: 0.74 m/s Peak Gradient: 2.22 mmHgCalifornia Hospital Medical CenterXR chest 1 view portable / [id number] 15:39:07TECHNIQUE: Frontal view of the chest. INDICATION: CHf. COMPARISON: None. FINDINGS: LINES/TUBES: None. HEART AND MEDIASTINUM: Cardiomediastinal contour is within normallimits. LUNGS: The lungs are well inflated and clear. No consolidation orpulmonary edema. PLEURA: No pneumothorax. No significant pleural effusion. SOFT TISSUES AND BONES: Cervical spinal fixation hardware is noted.[facility] CenterXR CHEST 1 VIEW PORTABLE / [id number] 15:39:07 [facility] : 1970 Sex: FTECHNIQUE: Frontal view of the chest.INDICATION: CHf.COMPARISON: None.FINDINGS:LINES/TUBES: None.HE ART AND MEDIASTINUM: Cardiomediastinal contour is within normallimits. LUNGS: The lungs are well inflated and clear. No consolidation orpulmonary edema.PLEURA: No pneumothorax. No significant pleuraleffusion.SOFT TISSUES AND BONES: Cervical spinal fixation hardware is noted.IMPRESSION:No acute card iopulmonary process.Electronically Signed By: Jose Carlos Lebron04/01/2023 15:41 CDTWorkstation Name: [id number] NATRIURETIC FACTOR (BNP)2023-04-01 14:15:07* Test Item Value Reference Range Interpretation Comme nts B-TYPE NATRIURETIC PEPTIDE ( BEAKER) (test code = 700) 192 pg/mL 0-100 H Substation Supervisor ID - ADMINMR spine cervical without IV [id number] 11:30:35MRI cervical spine without contrast CLINICAL HISTORY: [...] and paraspinal soft tissues are within normal limits.[facility] CenterMR CERVICAL SPINE WITHOUT IV [id number] 11:30:35 [facility] : 1970 Sex: FMRI [...] Signed By: Maxim Sultana03/31/2023 11:32 CDTWorkstation Name: [id number] METABOLIC [id number] 04:43:14* Test Item Value Reference Range Interpretation [...] GFR is not applicable for dialysis patients Substation Supervisor GEOVANNA CORREA [facility] (HEMOGRAM ONLY)2023-03-31 04:20:07* Test Item Value [...] 0 /100 WBC 0-0 Arterial doppler legs opewvdcut4590-49-86 17:44:07PV LAB - Lower Extremity Arterial Duplex Demographics Patient Name YUE LAWS Date of Study ESTELLE Age 53 Visit Number [id number] Gender Female Accession Number [id number] of 1970 Referring Mariah Aldridge, Room Number 2227 Physician Event Specialist Product Demonstrator Yovana Akins Interpreting John Solorio, Physician FellowProcedureType [...] + + + + + + !Prox SOUND SYSTEM INSTALLER ! !32 ! !Biphasic ! !60.9 ! !Triphasic ! + + + + + + + + + + !Mid SOUND SYSTEM INSTALLER ! !25.9 ! !Biphasic ! !59.7 ! !Triphasic ! + + + + + + + + + + !Dist SOUND SYSTEM INSTALLER ! !33.2 ! !Biphasic ! !37.4 ! [...] Study 03/30/2023 ESTELLE Age 53 Visit Number [id number] Gender Female Accession Number [id number] Date of 1970 Referring Mariah Jasen, Room Number 2227 Physician Event Specialist Product Demonstrator Yovana Akins Interpreting John Solorio, Physician FellowProcedureType of Study: Extremities Arteries: Lower Extremity Arterial Procedure, ARTERIAL (ALEISHA'S W/DOPPLER) ONLY.Indications for Study:PVD.Patient Status:Routine.Study Location:Vascular Lab.Technical Quality:Adequate visualization.Risk FactorsHistory of Disease+ + + ----+!Diagnosis !Date !Comments !+ + + ---------+!History/Risk Factors: !03/30/2023!CHF, CVA, HTN. !+ + + [...] in cm/s ; Diameters are measured in cmCKaiser Foundation Hospital SunsetMR thoracic spine without IV cccglpfl6045-93-17 12:50:50MR THORACIC SPINE WITHOUT IV CONTRAST INDICATION: [...] and further reported on MRI lumbar spine. [facility] CenterMR THORACIC SPINE WITHOUT IV [id number] 12:50:50[facility] : 1970 Sex: FMR [...] abnormality. T10-11 moderate right neural foraminal stenosis bqwC87-53 moderate bilateral foraminal stenosis due to facet [...] Signed By: Ryan Buckley03/30/2023 12:52 CDTWorkstation Name: [id number] spine lumbar without IV qomvhwgm3467-63-54 12:33:57MR LUMBAR SPINE WITHOUT IV CONTRAST INDICATION: Unlisted Reason for ExamConcern for cord compression COMPARISON: None TECHNIQUE: Multiplanar, multisequence MR images of the lumbar spinewithout contrast. FINDINGS: For the purposes of this dictation, the 5 lowermost griuwp-wkoepeqsrkgtt-ojxc vertebral bodies are labeled L1-L5.Alignment of the [...] [facility] IV [id number] 12:33:57 [facility] : 1970 Sex: FMR LUMBAR SPINE WITHOUT IV CONTRASTINDICATION: Unlisted Reason for ExamConcern for cord compressionCOMPARISON: NoneTECHNIQUE: Multiplanar, multisequence MR images of the lumbar spinewithout contrast. FINDINGS: For the purposes of this dictation, the 5 lowermost zdihyr-kowitbincbncp-dnbj vertebral bodies are labeled L1- L5.Alignment of the lumbar spine is within normal limits. Vertebral body height is maintained. Bone marrow edema is seen at the inferior L3 and superior L4 vertebralbodies and bilateral L4 pedicles, favored to be degenerative in nature.Suggestion of a synovial cyst at the ijzqqF21-D05 level (series 301image eight).No spinal cord signal [...] flavum buckling versus synovial cyst at the kvxeoV05-N70 level (series 301image eight). MRI thoracic spine can beconsidered for further evaluation.7. Mild clumping of the cauda equina nerve roots, which is nonspecificbut may represent arachnoiditis. Postcontrast imaging can be consideredfor further evaluation.Electronically Signed By: Maxim Sultana03/30/2023 12:36 CDTWorkstation Name: [id number] 11:45:01* Test Item Value Reference Range Interpretation [...] 5.7- 6.4% indicates increased risk for diabetes (prediabetes)."Substation Supervisor ID - ADMEEG AWAKE AND [id number] 09:57:53Steph Martinez MD 03/30/2023 9:59 AMELECTROENCEPHALOGRAM FOR [facility] EEG Type: Inpatient, outpatient, EMUDATE(s) OF EE03/30/23DATE OF REPORT: 03/30/23MRN: [id number] of : 1970EE-1454Start time: 08:36Stop time: 09:23ICD-10: R56.9 CPT Code: 40091 (awake and asleep)HISTORY: 53 y/o female with [...] [facility] AWAKE AND [id number] 09:57:53Steph Martinez MD 03/30/2023 9:[address] EEG Type: Inpatient, outpatient, EMUDATE(s) OF EE03/30/23DATE OF REPORT: 03/30/23MRN: [id number] of : 1970EE-1454Start time: 08:36Stop time: 09:23ICD-10: R56.9 CPT Code: 45414 (awake and asleep)HISTORY: 53 y/o female with [...] [facility] AWAKE AND [id number] 09:57:53Steph Martinez MD 03/30/2023 9:59 AMELECTROENCEPHALOGRAM FOR [facility] EEG Type: Inpatient, outpatient, EMUDATE(s) OF EE03/30/23DATE OF REPORT: 03/30/23MRN: [id number] of : 1970EE-1454Start time: 08:36Stop time: :ICD-10: R56.9 CPT Code: 44852 (awake and asleep)HISTORY: 53 y/o female with [...] [facility] VALPROIC ACID LEVEL, [id number] 09:42:31* Test Item Value Reference Range Interpretation Comme nts VALPROIC ACID TOTAL (BEAKER) (test code = 924) 76 ug/mL 50-100 Therapeutic range for some clinical conditions may be >100 ug/mLUrinalysis w/Microscopic + Reflex to [id number] 08:43:51* Test Item Value Reference Range Interpretation Comme nts Color, UA (test code = 5778-6) Yellow Clarity, UA (test code = 5767-9) Clear Specific [place], UA (test code = 5811-5) 1.033 1.001-1.035 pH, UA (test code = 5803-2) 6.0 5.0-8.0 Protein, UA (test code = 15581-4) 30 mg/dL Negative A Glucose, UA (test code = 365) Negative Negative Ketones, UA (test code = 2514-8) Negative Negative Bilirubin, UA (test code = 71933-5) Negative Negative Blood, UA (test code = 23441-8) Small Negative A Nitrite, UA (test code = 5802-4) Negative Negative Leukocytes, UA (test code = 5799-2) Negative Negative Urobilinogen, UA (test code = 38608-4) 0.2 0.2-1.0 RBC, UA (test code = 43127-6) 51 See_Comment [Automated message] The system which [...] Occasional Squam Epithel, UA (test code = 53889-8) See_Comment [Automated message] The system which generated this result transmitted reference range: /HPF. The reference range was not used to interpret this result as normal/abnormal. Specimen Source (test code = 2795) LYNDSAY (test code = LYNDSAY) Substation Supervisor ID - [auto]Substation Supervisor ID - tech Lab Interpretation (test code = 19373-8) Abnormal [facility] CenterUrinalysis w/Microscopic + Reflex to Culture 2023-03-30 08:43:51* Test Item Value Reference Range Interpretation Comme nts Color, UA (test code = 5778-6) Yellow Clarity, UA (test code = 5767-9) Clear Specific [place], UA (test code = 5811-5) 1.033 1.001-1.035 pH, UA (test code = 5803-2) 6.0 5.0-8.0 Protein, UA (test code = 78424-4) 30 mg/dL Negative A Glucose, UA (test code = 365) Negative Negative Ketones, UA (test code = 2514-8) Negative Negative Bilirubin, UA (test code = 52087-9) Negative Negative Blood, UA (test code = 63866-7) Small Negative A Nitrite, UA (test code = 5802-4) Negative Negative Leukocytes, UA (test code = 5799-2) Negative Negative Urobilinogen, UA (test code = 55583-9) 0.2 0.2-1.0 RBC, UA (test code = 95248-8) 51 See_Comment [Automated message] The system which [...] Occasional Squam Epithel, UA (test code = 25391-5) See_Comment [Automated message] The system which generated this result transmitted reference range: /HPF. The reference range was not used to interpret this result as normal/abnormal. Specimen Source (test code = 2795) LYNDSAY (test code = LYNDSAY) Substation Supervisor ID - [auto]Substation Supervisor ID - tech Lab Interpretation (test code = 91949-0) [facility]normal [facility] + Reflex to Culture 2023-03-30 08:43:51* Test Item Value Reference Range Interpretation Comme nts Color, UA (test code = 5778-6) Yellow Clarity, UA (test code = 5767-9) Clear Specific [place], UA (test code = 5811-5) 1.033 1.001-1.035 pH, UA (test code = 5803-2) 6.0 5.0-8.0 Protein, UA (test code = 48891-0) 30 mg/dL Negative A Glucose, UA (test code = 365) Negative Negative Ketones, UA (test code = 2514-8) Negative Negative Bilirubin, UA (test code = 99811-1) Negative Negative Blood, UA (test code = 58636-5) Small Negative A Nitrite, UA (test code = 5802-4) Negative Negative Leukocytes, UA (test code = 5799-2) Negative Negative Urobilinogen, UA (test code = 57277-1) 0.2 0.2-1.0 RBC, UA (test code = 82509-1) 51 See_Comment [Automated message] The system which [...] Occasional Squam Epithel, UA (test code = 19073-7) See_Comment [Automated message] The system which generated this result transmitted reference range: /HPF. The reference range was not used to interpret this result as normal/abnormal. Specimen Source (test code = 2795) LYNDSAY (test code = LYNDSAY) Substation Supervisor ID - [auto]Substation Supervisor ID - tech Lab Interpretation (test code = 11471-8) Abnormal [facility]/Microscopic + Reflex to Culture 2023-03-30 08:43:51* Test Item Value Reference Range Interpretation Comme nts Color, UA (test code = 5778-6) Yellow Clarity, UA (test code = 5767-9) Clear Specific [place], UA (test code = 5811-5) 1.033 1.001-1.035 pH, UA (test code = 5803-2) 6.0 5.0-8.0 Protein, UA (test code = 36690-6) 30 mg/dL Negative A Glucose, UA (test code = 365) Negative Negative Ketones, UA (test code = 2514-8) Negative Negative Bilirubin, UA (test code = 59444-5) Negative Negative Blood, UA (test code = 93797-5) Small Negative A Nitrite, UA (test code = 5802-4) Negative Negative Leukocytes, UA (test code = 5799-2) Negative Negative Urobilinogen, UA (test code = 61795-6) 0.2 0.2-1.0 RBC, UA (test code = 52643-4) 51 See_Comment [Automated message] The system which [...] Occasional Squam Epithel, UA (test code = 31011-5) See_Comment [Automated message] The system which generated this result transmitted reference range: /HPF. The reference range was not used to interpret this result as normal/abnormal. Specimen Source (test code = 2795) LYNDSAY (test code = LYNDSAY) Substation Supervisor ID - [auto]Substation Supervisor ID - tech Lab Interpretation (test code = 47981-4) Abnormal [facility] w/Microscopic + Reflex to Culture 2023-03-30 08:43:51* Test Item Value Reference Range Interpretation Comme nts Color, UA (test code = 5778-6) Yellow Clarity, UA (test code = 5767-9) Clear Specific [place], UA (test code = 5811-5) 1.033 1.001-1.035 pH, UA (test code = 5803-2) 6.0 5.0-8.0 Protein, UA (test code = 21614-7) 30 mg/dL Negative A Glucose, UA (test code = 365) Negative Negative Ketones, UA (test code = 2514-8) Negative Negative Bilirubin, UA (test code = 34137-2) Negative Negative Blood, UA (test code = 21082-5) Small Negative A Nitrite, UA (test code = 5802-4) Negative Negative Leukocytes, UA (test code = 5799-2) Negative Negative Urobilinogen, UA (test code = 66973-0) 0.2 0.2-1.0 RBC, UA (test code = 04250-4) 51 See_Comment [Automated message] The system which [...] Occasional Squam Epithel, UA (test code = 65543-0) See_Comment [Automated message] The system which generated this result transmitted reference range: /HPF. The reference range was not used to interpret this result as normal/abnormal. Specimen Source (test code = 2795) LYNDSAY (test code = LYNDSAY) Substation Supervisor ID - [auto]Substation Supervisor ID - tech Lab Interpretation (test code = 62544-9) Abnormal [facility]/Microscopic + Reflex to Culture 2023-03-30 08:43:51* Test Item Value Reference Range Interpretation Comme nts Color, UA (test code = 5778-6) Yellow Clarity, UA (test code = 5767-9) Clear Specific [place], UA (test code = 5811-5) 1.033 1.001-1.035 pH, UA (test code = 5803-2) 6.0 5.0-8.0 Protein, UA (test code = 29847-9) 30 mg/dL Negative A Glucose, UA (test code = 365) Negative Negative Ketones, UA (test code = 2514-8) Negative Negative Bilirubin, UA (test code = 35066-9) Negative Negative Blood, UA (test code = 12298-1) Small Negative A Nitrite, UA (test code = 5802-4) Negative Negative Leukocytes, UA (test code = 5799-2) Negative Negative Urobilinogen, UA (test code = 88377-5) 0.2 0.2-1.0 RBC, UA (test code = 24429-2) 51 See_Comment [Automated message] The system which [...] Occasional Squam Epithel, UA (test code = 31084-8) See_Comment [Automated message] The system which generated this result transmitted reference range: /HPF. The reference range was not used to interpret this result as normal/abnormal. Specimen Source (test code = 2795) LYNDSAY (test code = LYNDSAY) Substation Supervisor ID - [auto]Substation Supervisor ID - tech Lab Interpretation (test code = 14913-9) Abnormal [facility] w/Microscopic + Reflex to Culture 2023-03-30 08:43:51* Test Item Value Reference Range Interpretation Comme nts Color, UA (test code = 5778-6) Yellow Clarity, UA (test code = 5767-9) Clear Specific [place], UA (test code = 5811-5) 1.033 1.001-1.035 pH, UA (test code = 5803-2) 6.0 5.0-8.0 Protein, UA (test code = 97060-2) 30 mg/dL Negative A Glucose, UA (test code = 365) Negative Negative Ketones, UA (test code = 2514-8) Negative Negative Bilirubin, UA (test code = 22858-2) Negative Negative Blood, UA (test code = 92704-3) Small Negative A Nitrite, UA (test code = 5802-4) Negative Negative Leukocytes, UA (test code = 5799-2) Negative Negative Urobilinogen, UA (test code = 50411-4) 0.2 0.2-1.0 RBC, UA (test code = 70997-1) 51 See_Comment [Automated message] The system which [...] Occasional Squam Epithel, UA (test code = 85462-4) See_Comment [Automated message] The system which generated this result transmitted reference range: /HPF. The reference range was not used to interpret this result as normal/abnormal. Specimen Source (test code = 2795) LYNDSAY (test code = LYNDSAY) Substation Supervisor ID - [auto]Substation Supervisor ID - tech Lab Interpretation (test code = 49066-6) [facility]30 08:43:51* Test Item Value Reference Range Interpretation Comme nts Color, UA (test code = 5778-6) Yellow Clarity, UA (test code = 5767-9) Clear Specific [place], UA (test code = 5811-5) 1.033 1.001-1.035 pH, UA (test code = 5803-2) 6.0 5.0-8.0 Protein, UA (test code = 17765-1) 30 mg/dL Negative A Glucose, UA (test code = 365) Negative Negative Ketones, UA (test code = 2514-8) Negative Negative Bilirubin, UA (test code = 91794-3) Negative Negative Blood, UA (test code = 68631-6) Small Negative A Nitrite, UA (test code = 5802-4) Negative Negative Leukocytes, UA (test code = 5799-2) Negative Negative Urobilinogen, UA (test code = 32921-4) 0.2 0.2-1.0 RBC, UA (test code = 89127-7) 51 See_Comment [Automated message] The system which [...] Occasional Squam Epithel, UA (test code = 92512-5) See_Comment [Automated message] The system which generated this result transmitted reference range: /HPF. The reference range was not used to interpret this result as normal/abnormal. Specimen Source (test code = 2795) LYNDSAY (test code = LYNDSAY) Substation Supervisor ID - [auto]Substation Supervisor ID - tech Lab Interpretation (test code = 95882-6) [facility] 08:43:51* Test Item Value Reference Range Interpretation Comme nts Color, UA (test code = 5778-6) Yellow Clarity, UA (test code = 5767-9) Clear Specific [place], UA (test code = 5811-5) 1.033 1.001-1.035 pH, UA (test code = 5803-2) 6.0 5.0-8.0 Protein, UA (test code = 18717-9) 30 mg/dL Negative A Glucose, UA (test code = 365) Negative Negative Ketones, UA (test code = 2514-8) Negative Negative Bilirubin, UA (test code = 68791-5) Negative Negative Blood, UA (test code = 52881-9) Small Negative A Nitrite, UA (test code = 5802-4) Negative Negative Leukocytes, UA (test code = 5799-2) Negative Negative Urobilinogen, UA (test code = 06978-1) 0.2 0.2-1.0 RBC, UA (test code = 71720-4) 51 See_Comment [Automated message] The system which [...] Occasional Squam Epithel, UA (test code = 32610-4) See_Comment [Automated message] The system which generated this result transmitted reference range: /HPF. The reference range was not used to interpret this result as normal/abnormal. Specimen Source (test code = 2795) LYNDSAY (test code = LYNDSAY) Substation Supervisor ID - [auto]Substation Supervisor ID - tech Lab Interpretation (test code = 86995-9) [facility] 2023-03-30 08:43:51* Test Item Value Reference Range Interpretation Comme nts Color, UA (test code = 5778-6) Yellow Clarity, UA (test code = 5767-9) Clear Specific [place], UA (test code = 5811-5) 1.033 1.001-1.035 pH, UA (test code = 5803-2) 6.0 5.0-8.0 Protein, UA (test code = 10886-0) 30 mg/dL Negative A Glucose, UA (test code = 365) Negative Negative Ketones, UA (test code = 2514-8) Negative Negative Bilirubin, UA (test code = 65091-2) Negative Negative Blood, UA (test code = 86691-4) Small Negative A Nitrite, UA (test code = 5802-4) Negative Negative Leukocytes, UA (test code = 5799-2) Negative Negative Urobilinogen, UA (test code = 74706-4) 0.2 0.2-1.0 RBC, UA (test code = 71466-1) 51 See_Comment [Automated message] The system which [...] Occasional Squam Epithel, UA (test code = 54734-7) See_Comment [Automated message] The system which generated this result transmitted reference range: /HPF. The reference range was not used to interpret this result as normal/abnormal. Specimen Source (test code = 2795) LYNDSAY (test code = LYNDSAY) Substation Supervisor ID - [auto]Substation Supervisor ID - tech Lab Interpretation (test code = 83291-7) [facility] 2023-03-30 08:43:51* Test Item Value Reference Range Interpretation Comme nts Color, UA (test code = 5778-6) Yellow Clarity, UA (test code = 5767-9) Clear Specific [place], UA (test code = 5811-5) 1.033 1.001-1.035 pH, UA (test code = 5803-2) 6.0 5.0-8.0 Protein, UA (test code = 50354-3) 30 mg/dL Negative A Glucose, UA (test code = 365) Negative Negative Ketones, UA (test code = 2514-8) Negative Negative Bilirubin, UA (test code = 37159-3) Negative Negative Blood, UA (test code = 77685-2) Small Negative A Nitrite, UA (test code = 5802-4) Negative Negative Leukocytes, UA (test code = 5799-2) Negative Negative Urobilinogen, UA (test code = 82544-0) 0.2 0.2-1.0 RBC, UA (test code = 99389-6) 51 See_Comment [Automated message] The system which [...] Occasional Squam Epithel, UA (test code = 92096-3) See_Comment [Automated message] The system which generated this result transmitted reference range: /HPF. The reference range was not used to interpret this result as normal/abnormal. Specimen Source (test code = 2795) LYNDSAY (test code = LYNDSAY) Substation Supervisor ID - [auto]Substation Supervisor ID - tech Lab Interpretation (test code = 43432-3) [facility]lex [facility] Culture 2023-03-30 08:43:51* Test Item Value Reference Range Interpretation Comme nts Color, UA (test code = 5778-6) Yellow Clarity, UA (test code = 5767-9) Clear Specific [place], UA (test code = 5811-5) 1.033 1.001-1.035 pH, UA (test code = 5803-2) 6.0 5.0-8.0 Protein, UA (test code = 25873-2) 30 mg/dL Negative A Glucose, UA (test code = 365) Negative Negative Ketones, UA (test code = 2514-8) Negative Negative Bilirubin, UA (test code = 31845-6) Negative Negative Blood, UA (test code = 38987-6) Small Negative A Nitrite, UA (test code = 5802-4) Negative Negative Leukocytes, UA (test code = 5799-2) Negative Negative Urobilinogen, UA (test code = 80029-0) 0.2 0.2-1.0 RBC, UA (test code = 33584-0) 51 See_Comment [Automated message] The system which [...] Occasional Squam Epithel, UA (test code = 96679-9) See_Comment [Automated message] The system which generated this result transmitted reference range: /HPF. The reference range was not used to interpret this result as normal/abnormal. Specimen Source (test code = 2795) LYNDSAY (test code = LYNDSAY) Substation Supervisor ID - [auto]Substation Supervisor ID - tech Lab Interpretation (test code = 90656-0) [facility] Reflex [facility] Culture 2023-03-30 08:43:51* Test Item Value Reference Range Interpretation Comme nts Color, UA (test code = 5778-6) Yellow Clarity, UA (test code = 5767-9) Clear Specific [place], UA (test code = 5811-5) 1.033 1.001-1.035 pH, UA (test code = 5803-2) 6.0 5.0-8.0 Protein, UA (test code = 66846-2) 30 mg/dL Negative A Glucose, UA (test code = 365) Negative Negative Ketones, UA (test code = 2514-8) Negative Negative Bilirubin, UA (test code = 12108-5) Negative Negative Blood, UA (test code = 00397-6) Small Negative A Nitrite, UA (test code = 5802-4) Negative Negative Leukocytes, UA (test code = 5799-2) Negative Negative Urobilinogen, UA (test code = 79732-0) 0.2 0.2-1.0 RBC, UA (test code = 65491-9) 51 See_Comment [Automated message] The system which [...] Occasional Squam Epithel, UA (test code = 95608-4) See_Comment [Automated message] The system which generated this result transmitted reference range: /HPF. The reference range was not used to interpret this result as normal/abnormal. Specimen Source (test code = 2795) LYNDSAY (test code = LYNDSAY) Substation Supervisor ID - [auto]Substation Supervisor ID - tech Lab Interpretation (test code = 62857-7) [facility] Reflex to Culture 2023-03-30 08:43:51* Test Item Value Reference Range Interpretation Comme nts Color, UA (test code = 5778-6) Yellow Clarity, UA (test code = 5767-9) Clear Specific [place], UA (test code = 5811-5) 1.033 1.001-1.035 pH, UA (test code = 5803-2) 6.0 5.0-8.0 Protein, UA (test code = 34695-0) 30 mg/dL Negative A Glucose, UA (test code = 365) Negative Negative Ketones, UA (test code = 2514-8) Negative Negative Bilirubin, UA (test code = 39432-5) Negative Negative Blood, UA (test code = 29986-8) Small Negative A Nitrite, UA (test code = 5802-4) Negative Negative Leukocytes, UA (test code = 5799-2) Negative Negative Urobilinogen, UA (test code = 71931-1) 0.2 0.2-1.0 RBC, UA (test code = 78989-2) 51 See_Comment [Automated message] The system which [...] Occasional Squam Epithel, UA (test code = 06497-4) See_Comment [Automated message] The system which generated this result transmitted reference range: /HPF. The reference range was not used to interpret this result as normal/abnormal. Specimen Source (test code = 2795) LYNDSAY (test code = LYNDSAY) Substation Supervisor ID - [auto]Substation Supervisor ID - tech Lab Interpretation (test code = 58621-4) [facility] Reflex to Culture 2023-03-30 08:43:51* Test Item Value Reference Range Interpretation Comme nts Color, UA (test code = 5778-6) Yellow Clarity, UA (test code = 5767-9) Clear Specific [place], UA (test code = 5811-5) 1.033 1.001-1.035 pH, UA (test code = 5803-2) 6.0 5.0-8.0 Protein, UA (test code = 82952-4) 30 mg/dL Negative A Glucose, UA (test code = 365) Negative Negative Ketones, UA (test code = 2514-8) Negative Negative Bilirubin, UA (test code = 26933-0) Negative Negative Blood, UA (test code = 65643-4) Small Negative A Nitrite, UA (test code = 5802-4) Negative Negative Leukocytes, UA (test code = 5799-2) Negative Negative Urobilinogen, UA (test code = 14419-3) 0.2 0.2-1.0 RBC, UA (test code = 90018-1) 51 See_Comment [Automated message] The system which [...] Occasional Squam Epithel, UA (test code = 10268-6) See_Comment [Automated message] The system which generated this result transmitted reference range: /HPF. The reference range was not used to interpret this result as normal/abnormal. Specimen Source (test code = 2795) LYNDSAY (test code = LYNDSAY) Substation Supervisor ID - [auto]Substation Supervisor ID - tech Lab Interpretation (test code = 80524-4) [facility] Reflex to Culture 2023-03-30 08:43:51* Test Item Value Reference Range Interpretation Comme nts Color, UA (test code = 5778-6) Yellow Clarity, UA (test code = 5767-9) Clear Specific [place], UA (test code = 5811-5) 1.033 1.001-1.035 pH, UA (test code = 5803-2) 6.0 5.0-8.0 Protein, UA (test code = 50927-9) 30 mg/dL Negative A Glucose, UA (test code = 365) Negative Negative Ketones, UA (test code = 2514-8) Negative Negative Bilirubin, UA (test code = 47259-5) Negative Negative Blood, UA (test code = 09948-4) Small Negative A Nitrite, UA (test code = 5802-4) Negative Negative Leukocytes, UA (test code = 5799-2) Negative Negative Urobilinogen, UA (test code = 37576-1) 0.2 0.2-1.0 RBC, UA (test code = 92918-3) 51 See_Comment [Automated message] The system which [...] Occasional Squam Epithel, UA (test code = 48239-7) See_Comment [Automated message] The system which generated this result transmitted reference range: /HPF. The reference range was not used to interpret this result as normal/abnormal. Specimen Source (test code = 2795) LYNDSAY (test code = LYNDSAY) Substation Supervisor ID - [auto]Substation Supervisor ID - tech Lab Interpretation (test code = 15980-8) [facility] 2023-[facility]-30 08:43:51* Test Item Value Reference Range Interpretation Comme nts Color, UA (test code = 5778-6) Yellow Clarity, UA (test code = 5767-9) Clear Specific [place], UA (test code = 5811-5) 1.033 1.001-1.035 pH, UA (test code = 5803-2) 6.0 5.0-8.0 Protein, UA (test code = 52514-1) 30 mg/dL Negative A Glucose, UA (test code = 365) Negative Negative Ketones, UA (test code = 2514-8) Negative Negative Bilirubin, UA (test code = 96803-1) Negative Negative Blood, UA (test code = 82648-2) Small Negative A Nitrite, UA (test code = 5802-4) Negative Negative Leukocytes, UA (test code = 5799-2) Negative Negative Urobilinogen, UA (test code = 19091-5) 0.2 0.2-1.0 RBC, UA (test code = 34049-2) 51 See_Comment [Automated message] The system which [...] Occasional Squam Epithel, UA (test code = 01662-8) See_Comment [Automated message] The system which generated this result transmitted reference range: /HPF. The reference range was not used to interpret this result as normal/abnormal. Specimen Source (test code = 2795) LYNDSAY (test code = LYNDSAY) Substation Supervisor ID - [auto]Substation Supervisor ID - tech Lab Interpretation (test code = 90447-6) [facility]normal [facility] Reflex [facility] Culture 2023-03-30 08:43:51* Test Item Value Reference Range Interpretation Comme nts Color, UA (test code = 5778-6) Yellow Clarity, UA (test code = 5767-9) Clear Specific [place], UA (test code = 5811-5) 1.033 1.001-1.035 pH, UA (test code = 5803-2) 6.0 5.0-8.0 Protein, UA (test code = 62951-0) 30 mg/dL Negative A Glucose, UA (test code = 365) Negative Negative Ketones, UA (test code = 2514-8) Negative Negative Bilirubin, UA (test code = 16938-4) Negative Negative Blood, UA (test code = 05001-3) Small Negative A Nitrite, UA (test code = 5802-4) Negative Negative Leukocytes, UA (test code = 5799-2) Negative Negative Urobilinogen, UA (test code = 33169-2) 0.2 0.2-1.0 RBC, UA (test code = 97030-4) 51 See_Comment [Automated message] The system which [...] Occasional Squam Epithel, UA (test code = 01858-2) See_Comment [Automated message] The system which generated this result transmitted reference range: /HPF. The reference range was not used to interpret this result as normal/abnormal. Specimen Source (test code = 2795) LYNDSAY (test code = LYNDSAY) Substation Supervisor ID - [auto]Substation Supervisor ID - tech Lab Interpretation (test code = 51303-0) [facility]normal [facility] Reflex to Culture 2023-03-30 08:43:51* Test Item Value Reference Range Interpretation Comme nts Color, UA (test code = 5778-6) Yellow Clarity, UA (test code = 5767-9) Clear Specific [place], UA (test code = 5811-5) 1.033 1.001-1.035 pH, UA (test code = 5803-2) 6.0 5.0-8.0 Protein, UA (test code = 51344-0) 30 mg/dL Negative A Glucose, UA (test code = 365) Negative Negative Ketones, UA (test code = 2514-8) Negative Negative Bilirubin, UA (test code = 19970-4) Negative Negative Blood, UA (test code = 76118-7) Small Negative A Nitrite, UA (test code = 5802-4) Negative Negative Leukocytes, UA (test code = 5799-2) Negative Negative Urobilinogen, UA (test code = 06569-1) 0.2 0.2-1.0 RBC, UA (test code = 55510-4) 51 See_Comment [Automated message] The system which [...] Occasional Squam Epithel, UA (test code = 06735-0) See_Comment [Automated message] The system which generated this result transmitted reference range: /HPF. The reference range was not used to interpret this result as normal/abnormal. Specimen Source (test code = 2795) LYNDSAY (test code = LYNDSAY) Substation Supervisor ID - [auto]Substation Supervisor ID - tech Lab Interpretation (test code = 22671-6) [facility] Reflex [facility] Culture 2023-03-30 08:43:51* Test Item Value Reference Range Interpretation Comme nts Color, UA (test code = 5778-6) Yellow Clarity, UA (test code = 5767-9) Clear Specific [place], UA (test code = 5811-5) 1.033 1.001-1.035 pH, UA (test code = 5803-2) 6.0 5.0-8.0 Protein, UA (test code = 33377-0) 30 mg/dL Negative A Glucose, UA (test code = 365) Negative Negative Ketones, UA (test code = 2514-8) Negative Negative Bilirubin, UA (test code = 53719-2) Negative Negative Blood, UA (test code = 01141-4) Small Negative A Nitrite, UA (test code = 5802-4) Negative Negative Leukocytes, UA (test code = 5799-2) Negative Negative Urobilinogen, UA (test code = 49127-7) 0.2 0.2-1.0 RBC, UA (test code = 28995-4) 51 See_Comment [Automated message] The system which [...] Occasional Squam Epithel, UA (test code = 55756-6) See_Comment [Automated message] The system which generated this result transmitted reference range: /HPF. The reference range was not used to interpret this result as normal/abnormal. Specimen Source (test code = 2795) LYNDSAY (test code = LYNDSAY) Substation Supervisor ID - [auto]Substation Supervisor ID - tech Lab Interpretation (test code = 30355-8) [facility]normal [facility] Reflex to Culture 2023-03-30 08:43:51* Test Item Value Reference Range Interpretation Comme nts Color, UA (test code = 5778-6) Yellow Clarity, UA (test code = 5767-9) Clear Specific [place], UA (test code = 5811-5) 1.033 1.001-1.035 pH, UA (test code = 5803-2) 6.0 5.0-8.0 Protein, UA (test code = 29109-4) 30 mg/dL Negative A Glucose, UA (test code = 365) Negative Negative Ketones, UA (test code = 2514-8) Negative Negative Bilirubin, UA (test code = 78750-0) Negative Negative Blood, UA (test code = 59886-2) Small Negative A Nitrite, UA (test code = 5802-4) Negative Negative Leukocytes, UA (test code = 5799-2) Negative Negative Urobilinogen, UA (test code = 63162-0) 0.2 0.2-1.0 RBC, UA (test code = 54204-7) 51 See_Comment [Automated message] The system which [...] Occasional Squam Epithel, UA (test code = 51510-3) See_Comment [Automated message] The system which generated this result transmitted reference range: /HPF. The reference range was not used to interpret this result as normal/abnormal. Specimen Source (test code = 2795) LYNDSAY (test code = LYNDSAY) Substation Supervisor ID - [auto]Substation Supervisor ID - tech Lab Interpretation (test code = 60154-9) [facility] Reflex to Culture 2023-03-30 08:43:51* Test Item Value Reference Range Interpretation Comme nts Color, UA (test code = 5778-6) Yellow Clarity, UA (test code = 5767-9) Clear Specific [place], UA (test code = 5811-5) 1.033 1.001-1.035 pH, UA (test code = 5803-2) 6.0 5.0-8.0 Protein, UA (test code = 30263-3) 30 mg/dL Negative A Glucose, UA (test code = 365) Negative Negative Ketones, UA (test code = 2514-8) Negative Negative Bilirubin, UA (test code = 70130-8) Negative Negative Blood, UA (test code = 15651-0) Small Negative A Nitrite, UA (test code = 5802-4) Negative Negative Leukocytes, UA (test code = 5799-2) Negative Negative Urobilinogen, UA (test code = 46231-5) 0.2 0.2-1.0 RBC, UA (test code = 00490-0) 51 See_Comment [Automated message] The system which [...] Occasional Squam Epithel, UA (test code = 86432-6) See_Comment [Automated message] The system which generated this result transmitted reference range: /HPF. The reference range was not used to interpret this result as normal/abnormal. Specimen Source (test code = 2795) LYNDSAY (test code = LYNDSAY) Substation Supervisor ID - [auto]Substation Supervisor ID - tech Lab Interpretation (test code = 56870-0) [facility] Reflex to Culture 2023-03-30 08:43:51* Test Item Value Reference Range Interpretation Comme nts Color, UA (test code = 5778-6) Yellow Clarity, UA (test code = 5767-9) Clear Specific [place], UA (test code = 5811-5) 1.033 1.001-1.035 pH, UA (test code = 5803-2) 6.0 5.0-8.0 Protein, UA (test code = 91760-8) 30 mg/dL Negative A Glucose, UA (test code = 365) Negative Negative Ketones, UA (test code = 2514-8) Negative Negative Bilirubin, UA (test code = 68996-0) Negative Negative Blood, UA (test code = 75941-6) Small Negative A Nitrite, UA (test code = 5802-4) Negative Negative Leukocytes, UA (test code = 5799-2) Negative Negative Urobilinogen, UA (test code = 76068-6) 0.2 0.2-1.0 RBC, UA (test code = 11954-2) 51 See_Comment [Automated message] The system which [...] Occasional Squam Epithel, UA (test code = 39225-6) See_Comment [Automated message] The system which generated this result transmitted reference range: /HPF. The reference range was not used to interpret this result as normal/abnormal. Specimen Source (test code = 2795) LYNDSAY (test code = LYNDSAY) Substation Supervisor ID - [auto]Substation Supervisor ID - tech Lab Interpretation (test code = 04887-8) [facility] Ref[facility] Culture 2023-03-30 08:43:51* Test Item Value Reference Range Interpretation Comme nts Color, UA (test code = 5778-6) Yellow Clarity, UA (test code = 5767-9) Clear Specific [place], UA (test code = 5811-5) 1.033 1.001-1.035 pH, UA (test code = 5803-2) 6.0 5.0-8.0 Protein, UA (test code = 87025-3) 30 mg/dL Negative A Glucose, UA (test code = 365) Negative Negative Ketones, UA (test code = 2514-8) Negative Negative Bilirubin, UA (test code = 30011-1) Negative Negative Blood, UA (test code = 48019-1) Small Negative A Nitrite, UA (test code = 5802-4) Negative Negative Leukocytes, UA (test code = 5799-2) Negative Negative Urobilinogen, UA (test code = 83088-3) 0.2 0.2-1.0 RBC, UA (test code = 94712-6) 51 See_Comment [Automated message] The system which [...] Occasional Squam Epithel, UA (test code = 67259-2) See_Comment [Automated message] The system which generated this result transmitted reference range: /HPF. The reference range was not used to interpret this result as normal/abnormal. Specimen Source (test code = 2795) LYNDSAY (test code = LYNDSAY) Substation Supervisor ID - [auto]Substation Supervisor ID - tech Lab Interpretation (test code = 80543-8) [facility] Reflex [facility] Culture 2023-03-30 08:43:51* Test Item Value Reference Range Interpretation Comme nts Color, UA (test code = 5778-6) Yellow Clarity, UA (test code = 5767-9) Clear Specific [place], UA (test code = 5811-5) 1.033 1.001-1.035 pH, UA (test code = 5803-2) 6.0 5.0-8.0 Protein, UA (test code = 45589-1) 30 mg/dL Negative A Glucose, UA (test code = 365) Negative Negative Ketones, UA (test code = 2514-8) Negative Negative Bilirubin, UA (test code = 69219-4) Negative Negative Blood, UA (test code = 94047-2) Small Negative A Nitrite, UA (test code = 5802-4) Negative Negative Leukocytes, UA (test code = 5799-2) Negative Negative Urobilinogen, UA (test code = 03031-5) 0.2 0.2-1.0 RBC, UA (test code = 63117-3) 51 See_Comment [Automated message] The system which [...] Occasional Squam Epithel, UA (test code = 98561-7) See_Comment [Automated message] The system which generated this result transmitted reference range: /HPF. The reference range was not used to interpret this result as normal/abnormal. Specimen Source (test code = 2795) LYNDSAY (test code = LYNDSAY) Substation Supervisor ID - [auto]Substation Supervisor ID - tech Lab Interpretation (test code = 26738-3) [facility] Reflex to Culture 2023-03-30 08:43:51* Test Item Value Reference Range Interpretation Comme nts Color, UA (test code = 5778-6) Yellow Clarity, UA (test code = 5767-9) Clear Specific [place], UA (test code = 5811-5) 1.033 1.001-1.035 pH, UA (test code = 5803-2) 6.0 5.0-8.0 Protein, UA (test code = 39041-4) 30 mg/dL Negative A Glucose, UA (test code = 365) Negative Negative Ketones, UA (test code = 2514-8) Negative Negative Bilirubin, UA (test code = 82938-3) Negative Negative Blood, UA (test code = 01916-7) Small Negative A Nitrite, UA (test code = 5802-4) Negative Negative Leukocytes, UA (test code = 5799-2) Negative Negative Urobilinogen, UA (test code = 48926-5) 0.2 0.2-1.0 RBC, UA (test code = 36463-6) 51 See_Comment [Automated message] The system which [...] Occasional Squam Epithel, UA (test code = 60185-8) See_Comment [Automated message] The system which generated this result transmitted reference range: /HPF. The reference range was not used to interpret this result as normal/abnormal. Specimen Source (test code = 2795) LYNDSAY (test code = LYNDSAY) Substation Supervisor ID - [auto]Substation Supervisor ID - tech Lab Interpretation (test code = 49068-4) [facility] 2023-03-30 08:43:51* Test Item Value Reference Range Interpretation Comme nts Color, UA (test code = 5778-6) Yellow Clarity, UA (test code = 5767-9) Clear Specific [place], UA (test code = 5811-5) 1.033 1.001-1.035 pH, UA (test code = 5803-2) 6.0 5.0-8.0 Protein, UA (test code = 18733-5) 30 mg/dL Negative A Glucose, UA (test code = 365) Negative Negative Ketones, UA (test code = 2514-8) Negative Negative Bilirubin, UA (test code = 32410-3) Negative Negative Blood, UA (test code = 72066-0) Small Negative A Nitrite, UA (test code = 5802-4) Negative Negative Leukocytes, UA (test code = 5799-2) Negative Negative Urobilinogen, UA (test code = 92827-7) 0.2 0.2-1.0 RBC, UA (test code = 06009-7) 51 See_Comment [Automated message] The system which [...] Occasional Squam Epithel, UA (test code = 45361-5) See_Comment [Automated message] The system which generated this result transmitted reference range: /HPF. The reference range was not used to interpret this result as normal/abnormal. Specimen Source (test code = 2795) LYNDSAY (test code = LYNDSAY) Substation Supervisor ID - [auto]Substation Supervisor ID - tech Lab Interpretation (test code = 09358-1) [facility]lex [facility] Culture 2023-03-30 08:43:51* Test Item Value Reference Range Interpretation Comme nts Color, UA (test code = 5778-6) Yellow Clarity, UA (test code = 5767-9) Clear Specific [place], UA (test code = 5811-5) 1.033 1.001-1.035 pH, UA (test code = 5803-2) 6.0 5.0-8.0 Protein, UA (test code = 83587-0) 30 mg/dL Negative A Glucose, UA (test code = 365) Negative Negative Ketones, UA (test code = 2514-8) Negative Negative Bilirubin, UA (test code = 13765-5) Negative Negative Blood, UA (test code = 53722-0) Small Negative A Nitrite, UA (test code = 5802-4) Negative Negative Leukocytes, UA (test code = 5799-2) Negative Negative Urobilinogen, UA (test code = 31670-7) 0.2 0.2-1.0 RBC, UA (test code = 72913-3) 51 See_Comment [Automated message] The system which [...] Occasional Squam Epithel, UA (test code = 25111-0) See_Comment [Automated message] The system which generated this result transmitted reference range: /HPF. The reference range was not used to interpret this result as normal/abnormal. Specimen Source (test code = 2795) LYNDSAY (test code = LYNDSAY) Substation Supervisor ID - [auto]Substation Supervisor ID - tech Lab Interpretation (test code = 66789-3) [facility] Reflex [facility] Culture 2023-03-30 08:43:51* Test Item Value Reference Range Interpretation Comme nts Color, UA (test code = 5778-6) Yellow Clarity, UA (test code = 5767-9) Clear Specific [place], UA (test code = 5811-5) 1.033 1.001-1.035 pH, UA (test code = 5803-2) 6.0 5.0-8.0 Protein, UA (test code = 20612-4) 30 mg/dL Negative A Glucose, UA (test code = 365) Negative Negative Ketones, UA (test code = 2514-8) Negative Negative Bilirubin, UA (test code = 39008-9) Negative Negative Blood, UA (test code = 71927-1) Small Negative A Nitrite, UA (test code = 5802-4) Negative Negative Leukocytes, UA (test code = 5799-2) Negative Negative Urobilinogen, UA (test code = 50330-0) 0.2 0.2-1.0 RBC, UA (test code = 63958-9) 51 See_Comment [Automated message] The system which [...] Occasional Squam Epithel, UA (test code = 57418-5) See_Comment [Automated message] The system which generated this result transmitted reference range: /HPF. The reference range was not used to interpret this result as normal/abnormal. Specimen Source (test code = 2795) LYNDSAY (test code = LYNDSAY) Substation Supervisor ID - [auto]Substation Supervisor ID - tech Lab Interpretation (test code = 19653-0) [facility] Reflex [facility] Culture 2023-03-30 08:43:51* Test Item Value Reference Range Interpretation Comme nts Color, UA (test code = 5778-6) Yellow Clarity, UA (test code = 5767-9) Clear Specific [place], UA (test code = 5811-5) 1.033 1.001-1.035 pH, UA (test code = 5803-2) 6.0 5.0-8.0 Protein, UA (test code = 06645-5) 30 mg/dL Negative A Glucose, UA (test code = 365) Negative Negative Ketones, UA (test code = 2514-8) Negative Negative Bilirubin, UA (test code = 97446-9) Negative Negative Blood, UA (test code = 11474-7) Small Negative A Nitrite, UA (test code = 5802-4) Negative Negative Leukocytes, UA (test code = 5799-2) Negative Negative Urobilinogen, UA (test code = 16700-3) 0.2 0.2-1.0 RBC, UA (test code = 30654-5) 51 See_Comment [Automated message] The system which [...] Occasional Squam Epithel, UA (test code = 78045-7) See_Comment [Automated message] The system which generated this result transmitted reference range: /HPF. The reference range was not used to interpret this result as normal/abnormal. Specimen Source (test code = 2795) LYNDSAY (test code = LYNDSAY) Substation Supervisor ID - [auto]Substation Supervisor ID - tech Lab Interpretation (test code = 40561-7) [facility] 2023-03-30 08:43:51* Test Item Value Reference Range Interpretation Comme nts Color, UA (test code = 5778-6) Yellow Clarity, UA (test code = 5767-9) Clear Specific [place], UA (test code = 5811-5) 1.033 1.001-1.035 pH, UA (test code = 5803-2) 6.0 5.0-8.0 Protein, UA (test code = 26450-9) 30 mg/dL Negative A Glucose, UA (test code = 365) Negative Negative Ketones, UA (test code = 2514-8) Negative Negative Bilirubin, UA (test code = 43141-2) Negative Negative Blood, UA (test code = 71819-8) Small Negative A Nitrite, UA (test code = 5802-4) Negative Negative Leukocytes, UA (test code = 5799-2) Negative Negative Urobilinogen, UA (test code = 77730-4) 0.2 0.2-1.0 RBC, UA (test code = 49577-2) 51 See_Comment [Automated message] The system which [...] Occasional Squam Epithel, UA (test code = 34359-4) See_Comment [Automated message] The system which generated this result transmitted reference range: /HPF. The reference range was not used to interpret this result as normal/abnormal. Specimen Source (test code = 2795) LYNDSAY (test code = LYNDSAY) Substation Supervisor ID - [auto]Substation Supervisor ID - tech Lab Interpretation (test code = 97018-7) [facility] Reflex [facility] Culture 2023-03-30 08:43:51* Test Item Value Reference Range Interpretation Comme nts Color, UA (test code = 5778-6) Yellow Clarity, UA (test code = 5767-9) Clear Specific [place], UA (test code = 5811-5) 1.033 1.001-1.035 pH, UA (test code = 5803-2) 6.0 5.0-8.0 Protein, UA (test code = 61578-9) 30 mg/dL Negative A Glucose, UA (test code = 365) Negative Negative Ketones, UA (test code = 2514-8) Negative Negative Bilirubin, UA (test code = 75674-0) Negative Negative Blood, UA (test code = 80145-6) Small Negative A Nitrite, UA (test code = 5802-4) Negative Negative Leukocytes, UA (test code = 5799-2) Negative Negative Urobilinogen, UA (test code = 61404-2) 0.2 0.2-1.0 RBC, UA (test code = 47938-4) 51 See_Comment [Automated message] The system which [...] Occasional Squam Epithel, UA (test code = 92176-5) See_Comment [Automated message] The system which generated this result transmitted reference range: /HPF. The reference range was not used to interpret this result as normal/abnormal. Specimen Source (test code = 2795) LYNDSAY (test code = LYNDSAY) Substation Supervisor ID - [auto]Substation Supervisor ID - tech Lab Interpretation (test code = 81817-6) [facility]normal [facility] Reflex to Culture 2023-03-30 08:43:51* Test Item Value Reference Range Interpretation Comme nts Color, UA (test code = 5778-6) Yellow Clarity, UA (test code = 5767-9) Clear Specific [place], UA (test code = 5811-5) 1.033 1.001-1.035 pH, UA (test code = 5803-2) 6.0 5.0-8.0 Protein, UA (test code = 67440-1) 30 mg/dL Negative A Glucose, UA (test code = 365) Negative Negative Ketones, UA (test code = 2514-8) Negative Negative Bilirubin, UA (test code = 73985-9) Negative Negative Blood, UA (test code = 89390-6) Small Negative A Nitrite, UA (test code = 5802-4) Negative Negative Leukocytes, UA (test code = 5799-2) Negative Negative Urobilinogen, UA (test code = 21999-1) 0.2 0.2-1.0 RBC, UA (test code = 45429-5) 51 See_Comment [Automated message] The system which [...] Occasional Squam Epithel, UA (test code = 74226-7) See_Comment [Automated message] The system which generated this result transmitted reference range: /HPF. The reference range was not used to interpret this result as normal/abnormal. Specimen Source (test code = 2795) LYNDSAY (test code = LYNDSAY) Substation Supervisor ID - [auto]Substation Supervisor ID - tech Lab Interpretation (test code = 79812-1) [facility] Reflex [facility] Culture 2023-03-30 08:43:51* Test Item Value Reference Range Interpretation Comme nts Color, UA (test code = 5778-6) Yellow Clarity, UA (test code = 5767-9) Clear Specific [place], UA (test code = 5811-5) 1.033 1.001-1.035 pH, UA (test code = 5803-2) 6.0 5.0-8.0 Protein, UA (test code = 03355-6) 30 mg/dL Negative A Glucose, UA (test code = 365) Negative Negative Ketones, UA (test code = 2514-8) Negative Negative Bilirubin, UA (test code = 28280-4) Negative Negative Blood, UA (test code = 05552-3) Small Negative A Nitrite, UA (test code = 5802-4) Negative Negative Leukocytes, UA (test code = 5799-2) Negative Negative Urobilinogen, UA (test code = 27359-2) 0.2 0.2-1.0 RBC, UA (test code = 01471-9) 51 See_Comment [Automated message] The system which [...] Occasional Squam Epithel, UA (test code = 30463-7) See_Comment [Automated message] The system which generated this result transmitted reference range: /HPF. The reference range was not used to interpret this result as normal/abnormal. Specimen Source (test code = 2795) LYNDSAY (test code = LYNDSAY) Substation Supervisor ID - [auto]Substation Supervisor ID - tech Lab Interpretation (test code = 46443-2) [facility] Reflex to Culture 2023-03-30 08:43:51* Test Item Value Reference Range Interpretation Comme nts Color, UA (test code = 5778-6) Yellow Clarity, UA (test code = 5767-9) Clear Specific [place], UA (test code = 5811-5) 1.033 1.001-1.035 pH, UA (test code = 5803-2) 6.0 5.0-8.0 Protein, UA (test code = 98767-4) 30 mg/dL Negative A Glucose, UA (test code = 365) Negative Negative Ketones, UA (test code = 2514-8) Negative Negative Bilirubin, UA (test code = 63210-1) Negative Negative Blood, UA (test code = 82457-1) Small Negative A Nitrite, UA (test code = 5802-4) Negative Negative Leukocytes, UA (test code = 5799-2) Negative Negative Urobilinogen, UA (test code = 56745-6) 0.2 0.2-1.0 RBC, UA (test code = 44829-7) 51 See_Comment [Automated message] The system which [...] Occasional Squam Epithel, UA (test code = 84724-7) See_Comment [Automated message] The system which generated this result transmitted reference range: /HPF. The reference range was not used to interpret this result as normal/abnormal. Specimen Source (test code = 2795) LYNDSAY (test code = LYNDSAY) Substation Supervisor ID - [auto]Substation Supervisor ID - tech Lab Interpretation (test code = 37426-7) [facility]normal [facility] Reflex to Culture 2023-03-30 08:43:51* Test Item Value Reference Range Interpretation Comme nts Color, UA (test code = 5778-6) Yellow Clarity, UA (test code = 5767-9) Clear Specific [place], UA (test code = 5811-5) 1.033 1.001-1.035 pH, UA (test code = 5803-2) 6.0 5.0-8.0 Protein, UA (test code = 27582-7) 30 mg/dL Negative A Glucose, UA (test code = 365) Negative Negative Ketones, UA (test code = 2514-8) Negative Negative Bilirubin, UA (test code = 58214-3) Negative Negative Blood, UA (test code = 62911-3) Small Negative A Nitrite, UA (test code = 5802-4) Negative Negative Leukocytes, UA (test code = 5799-2) Negative Negative Urobilinogen, UA (test code = 73984-8) 0.2 0.2-1.0 RBC, UA (test code = 37441-3) 51 See_Comment [Automated message] The system which [...] Occasional Squam Epithel, UA (test code = 98524-1) See_Comment [Automated message] The system which generated this result transmitted reference range: /HPF. The reference range was not used to interpret this result as normal/abnormal. Specimen Source (test code = 2795) LYNDSAY (test code = LYNDSAY) Substation Supervisor ID - [auto]Substation Supervisor ID - tech Lab Interpretation (test code = 09479-2) [facility]normal [facility] Reflex to Culture 2023-03-30 08:43:51* Test Item Value Reference Range Interpretation Comme nts Color, UA (test code = 5778-6) Yellow Clarity, UA (test code = 5767-9) Clear Specific [place], UA (test code = 5811-5) 1.033 1.001-1.035 pH, UA (test code = 5803-2) 6.0 5.0-8.0 Protein, UA (test code = 85438-9) 30 mg/dL Negative A Glucose, UA (test code = 365) Negative Negative Ketones, UA (test code = 2514-8) Negative Negative Bilirubin, UA (test code = 78986-6) Negative Negative Blood, UA (test code = 62255-7) Small Negative A Nitrite, UA (test code = 5802-4) Negative Negative Leukocytes, UA (test code = 5799-2) Negative Negative Urobilinogen, UA (test code = 19866-2) 0.2 0.2-1.0 RBC, UA (test code = 76939-7) 51 See_Comment [Automated message] The system which [...] Occasional Squam Epithel, UA (test code = 81111-5) See_Comment [Automated message] The system which generated this result transmitted reference range: /HPF. The reference range was not used to interpret this result as normal/abnormal. Specimen Source (test code = 2795) LYNDSAY (test code = LYNDSAY) Substation Supervisor ID - [auto]Substation Supervisor ID - tech Lab Interpretation (test code = 96894-2) [facility]normal [facility] Reflex [facility] Culture 2023-03-30 08:43:51* Test Item Value Reference Range Interpretation Comme nts Color, UA (test code = 5778-6) Yellow Clarity, UA (test code = 5767-9) Clear Specific [place], UA (test code = 5811-5) 1.033 1.001-1.035 pH, UA (test code = 5803-2) 6.0 5.0-8.0 Protein, UA (test code = 80967-1) 30 mg/dL Negative A Glucose, UA (test code = 365) Negative Negative Ketones, UA (test code = 2514-8) Negative Negative Bilirubin, UA (test code = 46184-2) Negative Negative Blood, UA (test code = 10087-1) Small Negative A Nitrite, UA (test code = 5802-4) Negative Negative Leukocytes, UA (test code = 5799-2) Negative Negative Urobilinogen, UA (test code = 62070-7) 0.2 0.2-1.0 RBC, UA (test code = 73531-3) 51 See_Comment [Automated message] The system which [...] Occasional Squam Epithel, UA (test code = 48226-4) See_Comment [Automated message] The system which generated this result transmitted reference range: /HPF. The reference range was not used to interpret this result as normal/abnormal. Specimen Source (test code = 2795) LYNDSAY (test code = LYNDSAY) Substation Supervisor ID - [auto]Substation Supervisor ID - tech Lab Interpretation (test code = 63582-8) [facility]normal [facility] Reflex [facility] Culture 2023-03-30 08:43:51* Test Item Value Reference Range Interpretation Comme nts Color, UA (test code = 5778-6) Yellow Clarity, UA (test code = 5767-9) Clear Specific [place], UA (test code = 5811-5) 1.033 1.001-1.035 pH, UA (test code = 5803-2) 6.0 5.0-8.0 Protein, UA (test code = 23151-0) 30 mg/dL Negative A Glucose, UA (test code = 365) Negative Negative Ketones, UA (test code = 2514-8) Negative Negative Bilirubin, UA (test code = 54420-9) Negative Negative Blood, UA (test code = 98205-4) Small Negative A Nitrite, UA (test code = 5802-4) Negative Negative Leukocytes, UA (test code = 5799-2) Negative Negative Urobilinogen, UA (test code = 27541-2) 0.2 0.2-1.0 RBC, UA (test code = 23514-8) 51 See_Comment [Automated message] The system which [...] Occasional Squam Epithel, UA (test code = 97989-7) See_Comment [Automated message] The system which generated this result transmitted reference range: /HPF. The reference range was not used to interpret this result as normal/abnormal. Specimen Source (test code = 2795) LYNDSAY (test code = LYNDSAY) Substation Supervisor ID - [auto]Substation Supervisor ID - tech Lab Interpretation (test code = 32355-6) [facility]normal [facility]FLEX URINE [id number] 08:43:51 * Test Item Value Reference Range [...] < /HPF SOURCE(BEAKER) (test code = 2795) Substation Supervisor ID - [auto]Substation Supervisor ID - techCOMPREHENSIVE METABOLIC MKYOU0723-14-82 04:37:29* Test Item Value Reference Range Interpretation [...] GFR is not applicable for dialysis patients Substation Supervisor ID - MATT BPT/[id number] 04:30:17* Test Item Value Reference Range Interpretation Comme nts PROTIME (BEAKER) (test code = 759) 13.8 seconds 11.9-14.2 INR (BEAKER) (test code = 370) 1.13 See_Comment [Automated Pepscana ge] The system which generated this result [...] code = 413) 0 /100 WBC 0-0 CDF-[id number] 00:00:00Ordered by an unspecified provider.[facility][id number] 00:00:00Ordered by an unspecified provider. [facility]EKG-QXLXFUF5721-82-02 00:00:00Ordered by an unspecified provider.[facility] CenterMAGN[facility]IUM2023-05-25 17:14:06* Test Item Value Reference Range Interpretation Comme nts MAGNESIUM (test code = 7515825699) 1.9 mg/dL 1.7-2.4 Lab Interpretation (test cod e = 53319-7) [facility] (90855)2022-12-11 15:16:25* Test Item Value Reference Range Interpretation Comme nts NA (test code = 8171727088) 139 mmol/L 135-145 K (test code = 7783297991) 3.5 mmol/L 3.5-5.0 CL (test code = 0015814652) 107 mmol/L 98-108 CO2 TOTAL (test code = 9049476706) 24 mmol/L 23-31 AGAP (test code = 2875392454) 8 2-16 BUN (test code = 6249356183) 9 mg/dL 7-23 GLUCOSE (test code = 7796789482) 129 mg/dL 70-110 H CREATININE (test code = 2576780420) 0.68 mg/dL 0.50-1.04 TOTAL BILI (test code = 2983284520) 0.5 mg/dL 0.1-1.1 CALCIUM (test code = 8460925844) 8.9 mg/dL 8.6-10.6 T PROTEIN (test code = 4052613534) 6.3 g/dL 6.3-8.2 ALBUMIN (test code = 5522722497) 3.8 g/dL 3.5-5.0 ALK PHOS (test code = 2070210504) 87 U/L 34-122 ALTv (test code = 1742-6) 24 U/L 5-35 AST(SGOT) (test code = 2990034331) 21 U/L 13-40 eGFR (test code = 3865958238) 91.6 mL/min/1.73m2 LYNDSAY (test code = LYNDSAY) [...] imaging tests). Lab Interpretation (test code = 86912-6) [facility]normal [facility]TR[facility] [id number] 15:10:45* Test Item Value Reference Range Interpretation Comme [facility] TROPONIN I (test code = 6547199232) 0.015 ng/mL <=0.034 LYNDSAY (test code = [...] of biotin. Lab Interpretation (test code = 15269-0) Normal [facility]AL ASX-[id number] 15:07:48* Test Item Value Reference Range Interpretation Comme [facility] NT-proBNP (test code = 7819539210) 1460 pg/mL <=125 H LYNDSAY (test code = LYNDSAY) Biotin has been reported to cause a negative bias, interpret results relative to patient's use of biotin. Lab Interpretation (test code = 38573-8) [facility]normal [facility]UTRAJ0171-95-08 14:45:24* Test Item Value Reference Range Interpretation Comments D-DIMER (test code = 8193720101) 0.99 See_Comment H [Automated message] The system [...] a diagnosis. Lab Interpretation (test code = 13787-0) Abnormal [facility] WITH [id number] 14:14:48* Test Item Value Reference Range Interpretation Comme nts WBC (test code = 6690-2) 7.86 See_Comment [Automated [employer] ge] The system which generated this result transmitted reference range: 4.30 - 11.10 10*3/?L. The reference range was not used to interpret this result as normal/abnormal. RBC (test code = 789-8) 5.13 See_Comment [Automated [employer] ge] The system which generated this result [...] g/dL 31.6-35.1 L RDW-SD (test code = 59113-8) 47.8 fL 39.0-49.9 RDW-CV (test code = 788-0) 16.9 % 12.0-15.5 H PLT (test code = 777-3) 507 See_Comment H [Automated [employer] ge] The system which generated this result transmitted reference range: 166 - 358 10*3/?L. The reference range was not used to interpret this result as normal/abnormal. MPV (test code = 19598-1) 8.2 fL 9.5-12.9 L NRBC/100 WBC (test code = 8858855419) 0.0 See_Comment [Automated CodeRyte ssage] The system which generated this result transmitted reference range: 0.0 - 10.0 /100 WBCs. The reference range was not used to interpret this result as normal/abnormal. NRBC x10^3 (test code = 0944368430) See_Comment [Automated messa ge] The system which generated this result transmitted reference range: 10*3/?L. The reference range was not used to interpret this result as normal/abnormal. GRAN MAT (NEUT) % (test code = 770-8) 64.5 % IMM GRAN % (test code = 9876831087) 0.30 % LYMPH % (test code = 736-9) 25.6 % MONO % (test code = 5905-5) 7.5 % EOS % (test code = 713-8) 1.0 % BASO % (test code = 706-2) 1.1 % GRAN MAT x10^3(ANC) (test code = 6789315412) 5.07 10*3/uL 1.88-7.09 IMM GRAN x10^3 (test code = 9735540429) 0.00-0.06 LYMPH x10^3 (test code = 731-0) 2.01 10*3/uL 1.32-3.29 MONO x10^3 (test code = 742-7) 0.59 10*3/uL 0.33-0.92 EOS x10^3 (test code = 711-2) 0.08 10*3/uL 0.03-0.39 BASO x10^3 (test code = 704-7) 0.09 10*3/uL 0.01-0.07 H Lab Interpretation (test code = 72226-1) [facility]normal [facility] 13:17:22* Test Item Value Reference Range Interpretation Comme [facility] RPR SCREEN (Descomplica) (test co de = 420) Nonreactive Nonreactive HEMOGLOBIN [id number] 10:39:49* Test Item Value Reference Range Interpretation Comme [facility] HEMOGLOBIN A1C ELECTROPHORESIS (Descomplica) (test code = 3811) 5.8 % See_Comment [...] 5.7- 6.4% indicates increased risk for diabetes (prediabetes)."Substation Supervisor ID - ADM VITAMIN [id number] 22:48:27* Test Item Value Reference Range Interpretation Comme nts VITAMIN B12 (BEAKER) (test c ode = 774) 227 pg/mL 213-816 Substation Supervisor ID - MARCOTSH/FREE T4 IF URZQNAMBQ2015-16-99 22:08:28* Test Item Value Reference Range Interpretation Comme nts THYROID STIMULATING HORMONE (BEAKER) (test code = 772) 3.309 uIU/mL 0.350-4.940 Substation Supervisor ID - JSHIV-1 ANTIGEN WITH HIV-1/2 [id number] 22:08:28* Test Item Value Reference Range Interpretation Comme nts HIV-1 ANTIGEN WITH HIV 1\\T\\2 ANTIBODY (2) (BEAKER) (test code = 2586) Nonreactive Nonreactive Substation Supervisor ID - JSC-REACTIVE KVSCCWP5727-09-50 21:49:44* Test Item Value Reference Range Interpretation Comme nts C-REACTIVE PROTEIN (BEAKER) (test code = 676) 0.35 mg/dL 0.00-0.50 Substation Supervisor ID - JSCOMPREHENSIVE METABOLIC [id number] 21:49:43* Test Item Value Reference Range Interpretation [...] GFR is not applicable for dialysis patients Substation Supervisor ID - JSLIPID [id number] 21:49:43* Test Item Value Reference Range Interpretation [...] Borderline 130-159 High 160-189 Very High >=190 Substation Supervisor ID - JSCBC W/PLT COUNT & AUTO [id number] 21:34:03* Test Item Value Reference Range Interpretation [...] Interpretation Comme nts Height (test code = 5685282068) in Weight (test code = 2039604804) lbs Systolic BP (test code = 7796728294) mmHg Diastolic BP (test code = 5231289582) mmHg Heart Rate (test code = 6616097590) bpm BSA (test code = 8716024974) 2.00 m2 Ao root diam (test code = 6014655281) 3.20 cm Aortic root (test code = 6502271539) 3.2 cm Ao root annulus (test code = 0351572135) 3.2 cm LVOT diameter (test code = 1398108942) 1.99 cm LVOT area (test code = 7833902268) 3.10 cm2 LVIDD (test code = 5031416254) 5.10 cm Left Ventricular End Diastolic Volume by Teichholz Method (test code = 0473927) 123.0 mL IVS (test code = 2104157626) 1.34 cm Interventricular Septum Diastolic Thickness by 2D (test code = 1766357) 1.34 cm LVPWD (test code = 4543561020) 1.34 cm PW (test code = 1341261828) 1.34 cm 0.6-1.1 EF(Teich) (test code = 8660108659) 41.80 % LVIDS (test code = 2047115747) 4.00 cm Left Ventricular End Systolic Volume by Teichholz Method (test code = 6895523) 71.5 mL FS (test code = 4109962193) 21 % EF - 2D (test code = 71647385) 41.80 % LA size (test code = 8390419246) 4.6 cm Pulmonic Regurgitant End Max Velocity (test code = 7149961398) 119.4 cm/s LAV(MOD-sp4) (test code = 4011840485) 95.00 mL E wave decelartion time (test code = 1495464824) 0.15 s MV stenosis pressure 1/2 time (test code = 8244631203) 45.6 ms MV Peak A Evette (test code = 0110108251) 123.8 cm/s MV Peak E Evette (test code = 0687288039) 109.7 cm/s E/A ratio (test code = 5304598272) ratio MR max PG (test code = 3997024994) 87.20 mm[Hg] MR max evette (test code = 8555451710) 466.90 cm/s Mr max evette (test code = 9940390676) 466.9 m/s MV Prop V (test code = 4982001641) 51.00 cm/s MV E/e' septal (test code = 1848877173) 8.1 cm/s Tapse (test code = 9916312083) 2.21 cm LVOT stroke volume (test code = 7089492153) 49.80 cm3 LVOT peak evette (test code = 7229343101) 89.1 cm/s LVOT mn grad (test code = 2389568597) mmHg AV LVOT peak gradient (test code = 4026819814) mmHg LVOT peak VTI (test code = 3400585801) 16.0 cm LV V1 mean (test code = 3526299747) 64.30 cm/s Aortic valve mean velocity (test code = 2182237825) 133.8 cm/s Ao peak evette (test code = 0383170410) 175.3 cm/s Ao VTI (test code = 6020860840) 32.2 cm AV area by cont VTI (test code = 7520366997) 1.6 cm2 AV area peak evette (test code = 6869900827) 1.6 cm2 Ao max PG (test code = 7946018572) 12.30 mm[Hg] AV peak gradient (test code = 9125652874) mmHg AV valve area (test code = 8624211397) 1.55 cm2 AV mean gradient (test code = 5821527032) mmHg AV regurgitation pressure 1/2 time (test code = 8561184099) 358.5 ms AI dec slope (test code = 1174353715) 364.20 cm/s2 AI max evette (test code = 0157896217) 445.80 cm/s AI max PG (test code = 4523258097) 79.50 mm[Hg] Radiology Study observation (narrative) (test code = 62382-0) LYNDSAY (test code = LYNDSAY) ?Left?Ventricle: Left [...] mL of Lumason ultrasound enhancing agent used. [facility] 10:43:32* Test Item Value Reference Range Interpretation [facility] POCT GLU (test code = 2731677199) 148 mg/dL 70-110 H Lab Interpretation (test cod e = 06183-4) Abnormal [facility]ACT[facility] THRMPLAS [id number] 18:39:45* Test Item Value Reference Range Interpretation [facility] Patient (test code = 3173-2) See_Comment [Automated message] The system which generated this result transmitted reference range: 23 - 38 Seconds. The reference range was not used to interpret this result as normal/abnormal. LYNDSAY (test code = LYNDSAY) The [facility] patient population mean normal value for aPTT is 30 seconds. Lab Interpretation (test code = 62311-0) Normal [facility]PROT[facility] / [id number] 18:37:42* Test Item Value Reference Range Interpretation Comme [facility] PROTIME PATIENT (test code = 5964-2) See_Comment [Automated [employer]] The system which generated this result transmitted reference range: 12.0 - 14.7 Seconds. The reference range was not used to interpret this result as normal/abnormal. INR (test code = 6301-6) Normal INR <1.1; Warfarin Therapeutic range 2.0 to 3.0 or 2.5 to 3.5, depending upon the indications. Lab Interpretation (test code = 02043-3) Normal [facility]TR[facility] [id number] 18:32:01* Test Item Value Reference Range Interpretation Comments TROPONIN I (test code = 1209498413) 0.019 ng/mL See_Comment [Automated message] The system [...] of biotin. Lab Interpretation (test code = 26406-1) Normal [facility] HospitalN-TERMINAL [id number] 18:29:01* Test Item Value Reference Range Interpretation Comme nts NT-proBNP (test code = 3588751929) 2770 pg/mL See_Comment H [Automated message] The system which generated this result transmitted reference range: <=125. The reference range was not used to interpret this result as normal/abnormal. LYNDSAY (test code = LYNDSAY) Biotin has been reported to cause a negative bias, interpret results relative to patient's use of biotin. Lab Interpretation (test code = 58186-6) Abnormal [facility] HospitalCOMP[facility] METABOLIC PANEL (19431)2022-07-31 18:21:42* Test Item Value Reference Range Interpretation Comme nts NA (test code = 6380505178) 136 mmol/L 135-145 K (test code = 5800822483) 4.6 mmol/L 3.5-5.0 CL (test code = 5029749019) 104 mmol/L 98-108 CO2 TOTAL (test code = 9423611222) 26 mmol/L 23-31 AGAP (test code = 1631072530) 2-16 BUN (test code = 5057165056) 9 mg/dL 7-23 GLUCOSE (test code = 3169886754) 97 mg/dL 70-110 CREATININE (test code = 8591791826) 0.64 mg/dL 0.50-1.04 TOTAL BILI (test code = 9987591791) 0.5 mg/dL 0.1-1.1 CALCIUM (test code = 9631410190) 8.2 mg/dL 8.6-10.6 L T PROTEIN (test code = 6571952641) 6.5 g/dL 6.3-8.2 ALBUMIN (test code = 2675144885) 3.9 g/dL 3.5-5.0 ALK PHOS (test code = 6041885290) 93 U/L 34-122 ALTv (test code = 1742-6) 18 U/L 5-35 AST(SGOT) (test code = 2506359008) 19 U/L 13-40 eGFR (test code = 7890508368) mL/min/1.73m2 LYNDSAY (test code = LYNDSAY) Association [...] imaging tests). Lab Interpretation (test code = 52225-6) [facility]normal [facility]LIP[facility]20[facility] 18:21:01* Test Item Value Reference Range Interpretation Comme nts LIPASE (test code = 8191293094) 54 U/L 0-220 Lab Interpretation (test cod e = 71821-1) Normal [facility] WITH [id number] 18:07:00* Test Item Value Reference Range Interpretation Comme nts WBC (test code = 6690-2) See_Comment [Automated [employer]] The system which generated this result transmitted reference range: 4.30 - 11.10 10*3/?L. The reference range was not used to interpret this result as normal/abnormal. RBC (test code = 789-8) See_Comment [Automated [employer]] The system which generated this result transmitted [...] g/dL 31.6-35.1 L RDW-SD (test code = 75069-5) 53.1 fL 39.0-49.9 H RDW-CV (test code = 788-0) 17.0 % 12.0-15.5 H PLT (test code = 777-3) See_Comment H [Automated messa ge] The system which generated this result transmitted reference range: 166 - 358 10*3/?L. The reference range was not used to interpret this result as normal/abnormal. MPV (test code = 53482-7) 8.2 fL 9.5-12.9 L NRBC/100 WBC (test code = 3148386925) See_Comment [Automated CodeRyte ssage] The system which generated this result transmitted reference range: 0.0 - 10.0 /100 WBCs. The reference range was not used to interpret this result as normal/abnormal. NRBC x10^3 (test code = 3389260064) See_Comment [Automated messa ge] The system which generated this result transmitted reference range: 10*3/?L. The reference range was not used to interpret this result as normal/abnormal. GRAN MAT (NEUT) % (test code = 770-8) 64.0 % IMM GRAN % (test code = 0207805673) 0.40 % LYMPH % (test code = 736-9) 27.3 % MONO % (test code = 5905-5) 6.5 % EOS % (test code = 713-8) 1.1 % BASO % (test code = 706-2) 0.7 % GRAN MAT x10^3(ANC) (test code = 1901382590) 5.46 10*3/uL 1.88-7.09 IMM GRAN x10^3 (test code = 8800181504) 0.03 10*3/uL 0.00-0.06 LYMPH x10^3 (test code = 731-0) 2.32 10*3/uL 1.32-3.29 MONO x10^3 (test code = 742-7) 0.55 10*3/uL 0.33-0.92 EOS x10^3 (test code = 711-2) 0.09 10*3/uL 0.03-0.39 BASO x10^3 (test code = 704-7) 0.06 10*3/uL 0.01-0.07 Lab Interpretation (test code = 86579-7) Abnormal [facility] METABOLIC PANEL (NA, K, CL, CO2, GLUCOSE, BUN, CREATININE, CA)2022-05-08 06:37:01* Test Item Value Reference Range Interpretation Comme nts NA (test code = 0186172875) 137 mmol/L 135-145 K (test code = 2750817753) 3.8 mmol/L 3.5-5 CL (test code = 6037472544) 103 mmol/L 98-108 CO2 TOTAL (test code = 8980518205) 24 mmol/L 23-31 AGAP (test code = 5544094626) 2-16 BUN (test code = 1436712893) 13 mg/dL 7-23 GLUCOSE (test code = 7715466843) 90 mg/dL 70-110 CREATININE (test code = 2046445944) 0.69 mg/dL 0.5-1.04 CALCIUM (test code = 1980602563) 8.5 mg/dL 8.6-10.6 L eGFR (test code = 9626596105) mL/min/1.73m2 LYNDSAY (test code = LYNDSAY) Association [...] imaging tests). Lab Interpretation (test code = 08534-0) Abnormal [facility]2022-[facility] 06:37:01* Test Item Value Reference Range Interpretation Comme nts MAGNESIUM (test code = 9592787989) 2.1 mg/dL 1.7-2.4 Lab Interpretation (test cod e = 06281-2) Normal [facility] HospitalPHOSPHORUS2022-10-20 06:37:01* Test Item Value Reference Range Interpretation Comme nts PHOSPHORUS (test code = 7915679824) 4.7 mg/dL 2.5-5 Lab Interpretation (test cod e = 50862-0) Normal [facility] HospitalCBC WITH [id number] 06:11:54* Test Item Value Reference Range Interpretation [...] 32.4 g/dL 31.6-35.1 RDW-SD (test code = 76522-2) 51.0 fL 39-49.9 H RDW-CV (test code = 788-0) 16.5 % 12-15.5 H PLT (test code = 777-3) See_Comment H [Automated messa ge] The system which generated this result transmitted reference range: 166 - 358 10*3/?L. The reference range was not used to interpret this result as normal/abnormal. MPV (test code = 64831-9) 8.3 fL 9.5-12.9 L NRBC/100 WBC (test code = 4540724943) See_Comment [Automated me ssage] The system which generated this result transmitted reference range: 0.0 - 10.0 /100 WBCs. The reference range was not used to interpret this result as normal/abnormal. NRBC x10^3 (test code = 4178350849) See_Comment [Automated messa ge] The system which generated this result transmitted reference range: 10*3/?L. The reference range was not used to interpret this result as normal/abnormal. GRAN MAT (NEUT) % (test code = 770-8) 64.5 % IMM GRAN % (test code = 1795919309) 0.50 % LYMPH % (test code = 736-9) 27.1 % MONO % (test code = 5905-5) 6.6 % EOS % (test code = 713-8) 0.6 % BASO % (test code = 706-2) 0.7 % GRAN MAT x10^3(ANC) (test code = 0205547210) 5.28 10*3/uL 1.88-7.09 IMM GRAN x10^3 (test code = 7482599413) 0.04 10*3/uL 0-0.06 LYMPH x10^3 (test code = 731-0) 2.22 10*3/uL 1.32-3.29 MONO x10^3 (test code = 742-7) 0.54 10*3/uL 0.33-0.92 EOS x10^3 (test code = 711-2) 0.05 10*3/uL 0.03-0.39 BASO x10^3 (test code = 704-7) 0.06 10*3/uL 0.01-0.07 Lab Interpretation (test code = 15570-7) Abnormal [facility] GLUCOSE (AUTOMATED)2022-05-07 01:18:10* Test Item Value Reference Range Interpretation Comme nts POCT GLU (test code = 3283415737) 120 mg/dL 70-110 H Lab Interpretation (test cod e = 88433-1) Abnormal [facility] HospitalType and Screen - ONCE [id number] 05:46:35* Test Item Value Reference Range Interpretation Comme nts ABO & RH (test code = 20) O POSITIVE Performed at [facility] Laboratory Services [facility] Blood [address] Free: [phone] No. [id number] IAT (test code = 1185) Negative Performed at [facility] Laboratory Services [facility] Blood [address] Free: [phone] No. [id number] [facility]OL[facility] (NA, K, CL, CO2, GLUCOSE, BUN, CREATININE, CA)2022-05-05 08:22:57* Test Item Value Reference Range Interpretation Comme nts NA (test code = 5983800507) 136 mmol/L 135-145 K (test code = 1651731466) 4.9 mmol/L 3.5-5 CL (test code = 7652275785) 108 mmol/L 98-108 CO2 TOTAL (test code = 8550687265) 22 mmol/L 23-31 L AGAP (test code = 5888115513) 2-16 BUN (test code = 3894328201) 12 mg/dL 7-23 GLUCOSE (test code = 4987487931) 155 mg/dL 70-110 H CREATININE (test code = 6786937970) 0.63 mg/dL 0.5-1.04 CALCIUM (test code = 0789835714) 8.4 mg/dL 8.6-10.6 L eGFR (test code = 7680497006) mL/min/1.73m2 LYNDSAY (test code = LYNDSAY) Association [...] imaging tests). Lab Interpretation (test code = 55393-9) Abnormal [facility] HospitalPROTHROMBIN TIME / [id number] 08:22:37* Test Item Value Reference Range Interpretation Comme [facility] PROTIME PATIENT (test code = 5964-2) See_Comment [Automated [employer]] The system which generated this result transmitted reference range: 10.1 - 12.6 Seconds. The reference range was not used to interpret this result as normal/abnormal. INR (test code = 6301-6) Normal INR <1.1; Warfarin Therapeutic range 2.0 to 3.0 or 2.5 to 3.5, depending upon the indications. Lab Interpretation (test code = 48198-8) Normal [facility] HospitalaPTT2022-10-17 08:22:37* Test Item Value Reference Range Interpretation Comme [facility] APTT Patient (test code = 3173-2) See_Comment [[employer]] The system which generated this result transmitted reference range: 26 - 36 Seconds. The reference range was not used to interpret this result as normal/abnormal. Lab Interpretation (test code = 86189-4) Normal [facility] HospitalFIBRINOGEN2022-10-17 08:22:37* Test Item Value Reference Range Interpretation Comme [facility] Fibrinogen (test code = 0364713229) 294 mg/dL 167-453 Lab Interpretation (test cod e = 98803-3) Normal [facility] WITH [id number] 08:15:01* Test Item Value Reference Range Interpretation [...] g/dL 31.6-35.1 L RDW-SD (test code = 71123-8) 52.9 fL 39-49.9 H RDW-CV (test code = 788-0) 16.8 % 12-15.5 H PLT (test code = 777-3) See_Comment H [Automated messa ge] The system which generated this result transmitted reference range: 166 - 358 10*3/?L. The reference range was not used to interpret this result as normal/abnormal. MPV (test code = 27220-7) 8.3 fL 9.5-12.9 L NRBC/100 WBC (test code = 0710708730) See_Comment [Automated me ssage] The system which generated this result transmitted reference range: 0.0 - 10.0 /100 WBCs. The reference range was not used to interpret this result as normal/abnormal. NRBC x10^3 (test code = 3886571066) See_Comment [Automated messa ge] The system which generated this result transmitted reference range: 10*3/?L. The reference range was not used to interpret this result as normal/abnormal. GRAN MAT (NEUT) % (test code = 770-8) 86.4 % IMM GRAN % (test code = 0771668289) 0.40 % LYMPH % (test code = 736-9) 11.7 % MONO % (test code = 5905-5) 1.1 % EOS % (test code = 713-8) 0.0 % BASO % (test code = 706-2) 0.4 % GRAN MAT x10^3(ANC) (test code = 1341477820) 6.36 10*3/uL 1.88-7.09 IMM GRAN x10^3 (test code = 3920519148) 0.03 10*3/uL 0-0.06 LYMPH x10^3 (test code = 731-0) 0.86 10*3/uL 1.32-3.29 L MONO x10^3 (test code = 742-7) 0.08 10*3/uL 0.33-0.92 L EOS x10^3 (test code = 711-2) 0.03-0.39 L BASO x10^3 (test code = 704-7) 0.03 10*3/uL 0.01-0.07 Lab Interpretation (test code = 82161-3) Abnormal [facility] HospitalVITAMIN D, [id number] 20:14:03* Test Item Value Reference Range Interpretation Comme [facility] VIT D 25OH (test code = 75763-8) 22 ng/mL 25-80 L LYNDSAY (test code = LYNDSAY) Deficiency: <20 ng/mLInsufficiency: 20-24 ng/mLOptimal: 25-80 ng/mL Lab Interpretation (test code = 97359-4) Abnormal [facility]BAS[facility]OLIC PANEL (NA, K, CL, CO2, GLUCOSE, BUN, CREATININE, CA)2022-04-15 11:27:57* Test Item Value Reference Range Interpretation Comme nts NA (test code = 0907244358) 138 mmol/L 135-145 K (test code = 0782185433) 3.9 mmol/L 3.5-5 CL (test code = 9501026089) 106 mmol/L 98-108 CO2 TOTAL (test code = 9811152982) 23 mmol/L 23-31 AGAP (test code = 1744227378) 2-16 BUN (test code = 5425491443) 10 mg/dL 7-23 GLUCOSE (test code = 9273285239) 91 mg/dL 70-110 CREATININE (test code = 4457497864) 0.65 mg/dL 0.5-1.04 CALCIUM (test code = 4448570859) 8.1 mg/dL 8.6-10.6 L eGFR (test code = 8796262240) mL/min/1.73m2 LYNDSAY (test code = LYNDSAY) Association [...] imaging tests). Lab Interpretation (test code = 23804-3) Abnormal [facility] HospitalSTROKE Protocol - Transthoracic echo (TTE) 2022-04-14 22:07:33* Test Item Value Reference Range Interpretation Comme nts Height (test code = 3804358474) in Weight (test code = 3904090768) lbs Systolic BP (test code = 8181861632) mmHg Diastolic BP (test code = 4024210675) mmHg Heart Rate (test code = 8704750751) bpm BSA (test code = 2615094903) 1.94 m2 TASV (test code = 0052120776) 15.5 cm/s LVIDD (test code = 8989796952) 6.00 cm Left Ventricular End Diastolic Volume by Teichholz Method (test code = 8805900) 183.0 mL IVS (test code = 3151946108) 1.09 cm Interventricular Septum Diastolic Thickness by 2D (test code = 6719298) 1.09 cm LVPWD (test code = 3903533476) 0.94 cm PW (test code = 5172567009) 0.94 cm 0.6-1.1 EF(Teich) (test code = 1513319195) 40.30 % LVIDS (test code = 2134139013) 4.80 cm Left Ventricular End Systolic Volume by Teichholz Method (test code = 6333016) 109.2 mL FS (test code = 7956516096) 20 % EF - 2D (test code = 71936895) 40.30 % LVOT diameter (test code = 4424600782) 2.05 cm LVOT area (test code = 5922346259) 3.30 cm2 Ao root diam (test code = 9281027195) 3.10 cm Aortic root (test code = 3053617012) 3.1 cm Ao root annulus (test code = 8866043732) 3.1 cm LA size (test code = 2764540609) 4.2 cm LAV(MOD-sp4) (test code = 7401405745) 64.90 mL MV Peak A Evette (test code = 3180234593) 115.7 cm/s E wave decelartion time (test code = 7894902356) 0.15 s MV Peak E Evette (test code = 9325883626) 106.2 cm/s E/A ratio (test code = 6166091412) ratio LVOT stroke volume (test code = 3386165456) 48.30 cm3 LVOT peak evette (test code = 2232401378) 78.4 cm/s LVOT mn grad (test code = 1488534880) mmHg AV LVOT peak gradient (test code = 7538575934) mmHg LVOT peak VTI (test code = 7450252476) 14.7 cm LV V1 mean (test code = 1816239878) 51.40 cm/s Ao peak evette (test code = 1078450346) 154.7 cm/s AV area peak evette (test code = 3633940027) 1.7 cm2 Ao max PG (test code = 6869464336) 9.60 mm[Hg] AV peak gradient (test code = 3560894491) mmHg AV regurgitation pressure 1/2 time (test code = 0122413086) 257.3 ms AI dec slope (test code = 8810506998) 498.10 cm/s2 AI max evette (test code = 3764647784) 437.60 cm/s AI max PG (test code = 0303700335) 77.80 mm[Hg] Tapse (test code = 7318176088) 2.19 cm LA Volume Index (BP) (test code = 7925804619) 32.0 mL/m2 LA volume (BP) (test code = 4190942478) 62.1 mL LAV(MOD-sp2) (test code = 2336283272) 52.70 mL A4C EF (test code = 8565353405) 44.80 % EF(sp4-el) (test code = 2947808364) 45.20 % SV(MOD-sp4) (test code = 5029221244) 71.20 mL SV(sp4-el) (test code = 1377833937) 73.90 mL LV Diastolic Volume (BP) (test code = 7980134128) 146.3 mL A2C EF (test code = 4538650182) 52.00 % EF(MOD-bp) (test code = 1080789651) 46.70 % EF(sp2-el) (test code = 2892986773) 52.40 % LV Systolic Volume (BP) (test code = 9478244347) 77.9 mL SV(MOD-bp) (test code = 9944203750) 68.40 mL SV(MOD-sp2) (test code = 4712288418) 69.20 mL EF (test code = 2091254083) Left Ventricular Stroke Volume by 2-D Biplane-MOD (test code = 0005875) 68.4 mL Radiology Study observation (narrative) (test code = 28405-2) LYNDSAY (test code = LYNDSAY) ?Left?Ventricle: Left [...] agent used and saline contrast was performed. [facility]KEPPRA (LEVETIRACETAM)2022-04-14 16:48:36* Test Item Value Reference Range Interpretation Comme nts KEPPRA (test code = 3205841649) 12-46 L LYNDSAY (test code = LYNDSAY) Therapeutic range: 12-46 ?g/mL ? ?Toxic: Not well established.Test developed and characteristics determined by [facility] Laboratory Services. Lab Interpretation (test code = 97187-5) Abnormal [facility] (Na, K, Cl, CO2, Glucose, BUN, Creatinine, Ca)2022-04-14 10:50:11* Test Item Value Reference Range Interpretation Comme nts NA (test code = 1971247238) 136 mmol/L 135-145 K (test code = 8953178202) 3.8 mmol/L 3.5-5 CL (test code = 1284366061) 105 mmol/L 98-108 CO2 TOTAL (test code = 9699745987) 25 mmol/L 23-31 AGAP (test code = 2358102694) 2-16 BUN (test code = 5771523651) 9 mg/dL 7-23 GLUCOSE (test code = 4750416638) 101 mg/dL 70-110 CREATININE (test code = 3887519350) 0.66 mg/dL 0.5-1.04 CALCIUM (test code = 9085282654) 8.1 mg/dL 8.6-10.6 L eGFR (test code = 0231838956) mL/min/1.73m2 LYNDSAY (test code = LYNDSAY) Association [...] imaging tests). Lab Interpretation (test code = 13892-1) Abnormal [facility] HospitalMagensium, [id number] 10:50:11* Test Item Value Reference Range Interpretation Comme nts MAGNESIUM (test code = 4180588302) 1.9 mg/dL 1.7-2.4 Lab Interpretation (test cod e = 94825-4) Normal [facility] HospitalThyroid Stimulating Coppqiy0114-44-41 22:21:44 * Test Item Value Reference Range Interpretation Comme nts TSH (test code = 4098015838) See_Comment Biotin has been reported to cause a negative bias, interpret results relative to patient's use of biotin. [Automated message] The system which generated this result transmitted reference range: 0.45 - 4.70 mIU/L. The reference range was not used to interpret this result as normal/abnormal. Lab Interpretation (test code = 17889-2) Normal [facility] HospitalGLYCOSYLATED HEMOGLOBIN (A1C)2022-04-13 21:53:43* Test Item Value Reference Range Interpretation Comme nts HGB A1C (test code = 4548-4) 5.8 % 4-5.7 H LYNDSAY (test code = LYNDSAY) Reference RangesNormal: <5.7%Prediabetes: 5.7 - 6.4%Diabetes: > 6.5% Lab Interpretation (test code = 13541-0) Abnormal [facility] HospitalFASTING LIPID PANEL (82070)(TOTAL CHOLESTEROL, TRIGLYCERIDES, HDL)2022-04-13 21:34:53* Test Item Value Reference Range Interpretation Comme nts CHOL (test code = 9649686229) 201 mg/dL 120-200 H HDL (test code = 1586953374) 56 mg/dL See_Comment [[employer]] The system which generated this result transmitted reference range: >=50. The reference range was not used to interpret this result as normal/abnormal. HDLC RATIO (test code = 5093515203) See_Comment [[employer]] The system which generated this result transmitted reference range: <=4.5. The reference range was not used to interpret this result as normal/abnormal. TRIG (test code = 5010524075) 355 mg/dL 30-170 H LDL CHOL (test code = 21536-9) 74 mg/dL See_Comment [[employer]] The system which generated this result transmitted reference range: <=160. The reference range was not used to interpret this result as normal/abnormal. VLDL (test code = 6457395401) 71 mg/dL 5-60 H Lab Interpretation (test code = 62128-1) Abnormal [facility] HospitalTroponin I - Code Exddxn3831-56-41 18:46:27* Test Item Value Reference Range Interpretation Comments TROPONIN I (test code = 4988937279) 0.013 ng/mL See_Comment [Automated message] The system [...] of biotin. Lab Interpretation (test code = 14371-6) Normal [facility] (NA, K, CL, CO2, Glucose, BUN, Creatinine, CA) - Code Rfyuto7973-96-58 18:35:07* Test Item Value Reference Range Interpretation Comme nts NA (test code = 2598087440) 136 mmol/L 135-145 K (test code = 2172092543) 4.3 mmol/L 3.5-5 CL (test code = 0418817438) 105 mmol/L 98-108 CO2 TOTAL (test code = 2180462498) 27 mmol/L 23-31 AGAP (test code = 7633187053) 2-16 BUN (test code = 3811076659) 8 mg/dL 7-23 GLUCOSE (test code = 3363558476) 130 mg/dL 70-110 H CREATININE (test code = 5009254105) 0.75 mg/dL 0.5-1.04 CALCIUM (test code = 6919489792) 8.5 mg/dL 8.6-10.6 L eGFR (test code = 6287196509) mL/min/1.73m2 LYNDSAY (test code = LYNDSAY) Association [...] imaging tests). Lab Interpretation (test code = 38343-4) [facility] Code [id number] 18:32:46* Test Item Value Reference Range Interpretation Comme nts APTT Patient (test code = 3173-2) See_Comment [Automated message] The system which generated this result transmitted reference range: 23 - 38 Seconds. The reference range was not used to interpret this result as normal/abnormal. LYNDSAY (test code = LYNDSAY) The [facility] patient population mean normal value for aPTT is 30 seconds. Lab Interpretation (test code = 82668-6) [facility] / [facility] - Code [id number] 18:30:45* Test Item Value Reference Range Interpretation [...] the indications. Lab Interpretation (test code = 10989-4) Normal [facility]CBC without Diff - Code [id number] 18:23:07* Test Item Value Reference Range Interpretation [...] result as normal/abnormal. MPV (test code = 24536-6) 8.1 fL 9.5-12.9 L RDW-CV (test code = 788-0) 16.1 % 12-15.5 H RDW-SD (test code = 51839-7) 49.2 fL 39-49.9 NRBC x10^3 (test code = 6816256408) See_Comment [Automated [employer]] The system which generated this result transmitted reference range: 10*3/?L. The reference range was not used to interpret this result as normal/abnormal. NRBC/100 WBC (test code = 7300663590) See_Comment [Automated [facility]] The system which generated this result transmitted reference range: 0.0 - 10.0 /100 WBCs. The reference range was not used to interpret this result as normal/abnormal. IPF % (test code = 9746903122) Lab Interpretation (test code = 25245-7) [id number] 21:06:40* Test Item Value Reference Range Interpretation Comments TROPONIN I (test code = 3099575940) 0.005 ng/mL See_Comment [Automated message] The system [...] of biotin. Lab Interpretation (test code = 28414-5) Normal [facility]. METABOLIC PANEL (30826)2021-11-23 20:55:42* Test Item Value Reference Range Interpretation Comme nts NA (test code = 2500987237) 137 mmol/L 135-145 K (test code = 9257959970) 4.3 mmol/L 3.5-5.0 CL (test code = 0416834648) 104 mmol/L 98-108 CO2 TOTAL (test code = 5102248815) 22 mmol/L 23-31 L AGAP (test code = 5008243112) 2-16 BUN (test code = 4321262277) 15 mg/dL 7-23 GLUCOSE (test code = 8633306101) 114 mg/dL 70-110 H CREATININE (test code = 6949678102) 0.68 mg/dL 0.50-1.04 TOTAL BILI (test code = 3042094934) 0.5 mg/dL 0.1-1.1 CALCIUM (test code = 2429520146) 9.1 mg/dL 8.6-10.6 T PROTEIN (test code = 6886127940) 7.3 g/dL 6.3-8.2 ALBUMIN (test code = 7266530163) 4.4 g/dL 3.5-5.0 ALK PHOS (test code = 3821106273) 243 U/L 34-122 H ALTv (test code = 1742-6) 24 U/L 5-35 AST(SGOT) (test code = 7177488482) 30 U/L 13-40 eGFR (test code = 1947133451) mL/min/1.73m2 LYNDSAY (test code = LYNDSAY) Association [...] imaging tests). Lab Interpretation (test code = 65849-3) [facility]normal [facility] 20:55:22* Test Item Value Reference Range Interpretation Comme nts LIPASE (test code = 7492393561) 96 U/L 0-220 Lab Interpretation (test cod e = 82852-3) Normal [facility] HospitalPOCT [id number] 20:46:00* Test Item Value Reference Range Interpretation Comme nts POCT PREG (test code = 1605) negative On board controls acceptable with C Line (test code = 3574) present POCT PREG LOT # (test code = 3575) [id number] POCT PREG TEST DATE ( test code = 3576) 04/18/2023 Lab Interpretation (test cod e = 88711-6) [facility] WITH [id number] 20:40:38* Test Item Value Reference Range Interpretation Comme nts WBC (test code = 6690-2) See_Comment [Automated [employer]] The system which generated this result transmitted reference range: 4.30 - 11.10 10*3/?L. The reference range was not used to interpret this result as normal/abnormal. RBC (test code = 789-8) See_Comment [Automated [employer]] The system which generated this result transmitted [...] 31.8 g/dL 31.6-35.1 RDW-SD (test code = 28448-5) 53.7 fL 39.0-49.9 H RDW-CV (test code = 788-0) 17.2 % 12.0-15.5 H PLT (test code = 777-3) See_Comment H [Automated messa ge] The system which generated this result transmitted reference range: 166 - 358 10*3/?L. The reference range was not used to interpret this result as normal/abnormal. MPV (test code = 58785-2) 8.5 fL 9.5-12.9 L NRBC/100 WBC (test code = 6024038139) See_Comment [Automated CodeRyte ssage] The system which generated this result transmitted reference range: 0.0 - 10.0 /100 WBCs. The reference range was not used to interpret this result as normal/abnormal. NRBC x10^3 (test code = 3747038177) <0.01 See_Comment [Automated messa ge] The system which generated this result transmitted reference range: 10*3/?L. The reference range was not used to interpret this result as normal/abnormal. GRAN MAT (NEUT) % (test code = 770-8) 53.7 % IMM GRAN % (test code = 1757070047) 0.90 % LYMPH % (test code = 736-9) 32.6 % MONO % (test code = 5905-5) 10.1 % EOS % (test code = 713-8) 1.5 % BASO % (test code = 706-2) 1.2 % GRAN MAT x10^3(ANC) (test code = 0348728144) 4.98 10*3/uL 1.88-7.09 IMM GRAN x10^3 (test code = 9973758649) 0.08 10*3/uL 0.00-0.06 H LYMPH x10^3 (test code = 731-0) 3.02 10*3/uL 1.32-3.29 MONO x10^3 (test code = 742-7) 0.94 10*3/uL 0.33-0.92 H EOS x10^3 (test code = 711-2) 0.14 10*3/uL 0.03-0.39 BASO x10^3 (test code = 704-7) 0.11 10*3/uL 0.01-0.07 H Lab Interpretation (test code = 45790-7) Abnormal [facility] (AUT[facility]ATED)2021-11-23 20:17:33* Test Item Value Reference Range Interpretation Comme nts POCT GLU (test code = 3605230166) 111 mg/dL 70-110 H Notified Provide r Lab Interpretation (test code = 83684-5) Abnormal [facility] HospitalPAP TEST, THINPREP, [id number] 00:00:00 * Test Item Value Reference Range Interpretation Comme nts SOURCE: (test code = 8001) Endocervical SLIDES: (test code = 8011) 1 LMP: (test code = 8021) 06/03/2021 SPECIMEN ADEQUACY: (test code = 79171) (NOTE) INTERPRETATION: (test code = 25199) ASCUS/EPITH. ABNORMALITY; SEE BELOW SIDE SPLITTER: (test code = 8101) CHANA Thacker(ASC)[facility] INTERPRETATION BY: (test code = 8122) Nahid Russell M.D. LOCATION: (test code = 18926) (NOTE) CPT: (test code = 8140) (NOTE) PAP TEST, THINPREP, [id number] 00:00:00* Test Item Value Reference Range Interpretation Comme nts SOURCE: (test code = 8001) Endocervical SLIDES: (test code = 8011) 1 LMP: (test code = 8021) 06/03/2021 SPECIMEN ADEQUACY: (test code = 10343) (NOTE) INTERPRETATION: (test code = 46564) ASCUS/EPITH. ABNORMALITY; SEE BELOW SIDE SPLITTER: (test code = 8101) Anusha SepulvedaOH(ASC)[facility] INTERPRETATION BY: (test code = 8122) Nahid Russell M.D. LOCATION: (test code = 49337) (NOTE) CPT: (test code = 8140) (NOTE) PAP TEST, THINPREP, [id number] 00:00:00* Test Item Value Reference Range Interpretation Comme nts SOURCE: (test code = 8001) Endocervical SLIDES: (test code = 8011) 1 LMP: (test code = 8021) 06/03/2021 SPECIMEN ADEQUACY: (test code = 29380) (NOTE) INTERPRETATION: (test code = 70339) ASCUS/EPITH. ABNORMALITY; SEE BELOW SIDE SPLITTER: (test code = 8101) CHANA Thacker(ASCP)[facility] INTERPRETATION BY: (test code = 8122) Nahid Russell M.D. LOCATION: (test code = 41537) (NOTE) CPT: (test code = 8140) (NOTE) PAP TEST, THINPREP, [id number] 00:00:00* Test Item Value Reference Range Interpretation Comme nts SOURCE: (test code = 8001) Endocervical SLIDES: (test code = 8011) 1 LMP: (test code = 8021) 06/03/2021 SPECIMEN ADEQUACY: (test code = 91985) (NOTE) INTERPRETATION: (test code = 71769) ASCUS/EPITH. ABNORMALITY; SEE BELOW SIDE SPLITTER: (test code = 8101) CHANA Thacker(ASCP)[facility] INTERPRETATION BY: (test code = 8122) Nahid Russell M.D. LOCATION: (test code = 25201) (NOTE) CPT: (test code = 8140) (NOTE) HPV HIGH RISK WITH GENOTYPE, [id number] 00:00:00* Test Item Value Reference Range Interpretation Comme nts HPV HIGH RISK INTERP (test c ode = 48029) POSITIVE HPV 16 (test code = 73969) POSITIVE HPV 18 (test code = 23406) NEGATIVE HPV, HR, OTHER GENOTYPES (te st code = 07726) POSITIVE HPV HIGH RISK WITH GENOTYPE, [id number] 00:00:00* Test Item Value Reference Range Interpretation Comme nts HPV HIGH RISK INTERP (test c ode = 35846) POSITIVE HPV 16 (test code = 95067) POSITIVE HPV 18 (test code = 78833) NEGATIVE HPV, HR, OTHER GENOTYPES (te st code = 62103) POSITIVE HPV HIGH RISK WITH GENOTYPE, [id number] 00:00:00* Test Item Value Reference Range Interpretation Comme nts HPV HIGH RISK INTERP (test c ode = 27519) POSITIVE HPV 16 (test code = 81912) POSITIVE HPV 18 (test code = 57659) NEGATIVE HPV, HR, OTHER GENOTYPES (te st code = 24156) POSITIVE HPV HIGH RISK WITH GENOTYPE, [id number] 00:00:00* Test Item Value Reference Range Interpretation Comme nts HPV HIGH RISK INTERP (test c ode = 36346) POSITIVE HPV 16 (test code = 77671) POSITIVE HPV 18 (test code = 15171) NEGATIVE HPV, HR, OTHER GENOTYPES (te st code = 67296) POSITIVE [id number] 03:22:48* Test Item Value Reference Range Interpretation Comme nts APPEARANCE (test code = 2878085060) Hazy Clear A COLOR (test code = 8836107257) Yellow Yellow PH (test code = 0909446398) 4.8-8.0 SP GRAVITY (test code = 3101815556) 1.003-1.030 GLU U QUAL (test code = 9153836221) Normal Normal BLOOD (test code = 4410346885) Negative Negative Interference fro m ascorbic acid may cause false negative results. KETONES (test code = 5745239491) 5 mg/dL Negative A PROTEIN (test code = 2887-8) Negative Negative UROBILIN (test code = 8215551755) 4.0 mg/dL Normal A BILIRUBIN (test code = 2735942132) Negative Negative NITRITE (test code = 7738964773) Negative Negative LEUK GRUPO (test code = 2067530268) Negative Negative RBC/HPF (test code = 5976998845) See_Comment [Automated messa ge] The system which generated this result transmitted reference range: 0 - 3 HPF. The reference range was not used to interpret this result as normal/abnormal. WBC/HPF (test code = 3490737098) <1 See_Comment [Automated messa ge] The system which generated this result transmitted reference range: 0 - 5 HPF. The reference range was not used to interpret this result as normal/abnormal. BACTERIA (test code = 5497454903) Few Negative A SQ EPITH (test code = 3535571353) HPF Lab Interpretation (test code = 32138-3) [facility]normal [facility]IN[facility]IS2021-[facility] 03:22:48* Test Item Value Reference Range Interpretation Comme nts APPEARANCE (test code = 7259682875) Hazy Clear A COLOR (test code = 3389645555) Yellow Yellow PH (test code = 3026646781) 4.8-8.0 SP GRAVITY (test code = 8609532134) 1.003-1.030 GLU U QUAL (test code = 1448543776) Normal Normal BLOOD (test code = 7401190196) Negative Negative KETONES (test code = 2197298011) 5 mg/dL Negative A PROTEIN (test code = 2887-8) Negative Negative UROBILIN (test code = 6259338990) 4.0 mg/dL Normal A BILIRUBIN (test code = 9422755907) Negative Negative NITRITE (test code = 3052188090) Negative Negative LEUK GRUPO (test code = 5575159248) Negative Negative RBC/HPF (test code = 0863924649) See_Comment [Automated [employer]] The system which generated this result transmitted reference range: 0 - 3 HPF. The reference range was not used to interpret this result as normal/abnormal. WBC/HPF (test code = 2721622685) <1 See_Comment [Automated [employer]] The system which generated this result transmitted reference range: 0 - 5 HPF. The reference range was not used to interpret this result as normal/abnormal. BACTERIA (test code = 5277451741) Few Negative A SQ EPITH (test code = 4664938593) HPF Lab Interpretation (test code = 57166-3) Abnormal [facility] [id number] 02:45:00* Test Item Value Reference Range Interpretation Comments TROPONIN I (test code = 2889544532) 0.002 ng/mL See_Comment [Automated message] The system [...] of biotin. Lab Interpretation (test code = 76357-6) Normal [facility] [id number] 02:45:00* Test Item Value Reference Range Interpretation Comme nts TROPONIN I (test code = 1011445795) 0.002 ng/mL See_Comment [Automated messa ge] The system which generated this result transmitted reference range: <=0.034. The reference range was not used to interpret this result as normal/abnormal. LYNDSAY (test code = LYNDSAY) Lab Interpretation (test code = 42165-0) Normal [facility]N-[facility]MINAL [id number] 02:41:57* Test Item Value Reference Range Interpretation Comme nts NT-proBNP (test code = 9689552981) 169 pg/mL See_Comment H [Automated message] The system which generated this result transmitted reference range: <=125. The reference range was not used to interpret this result as normal/abnormal. LYNDSAY (test code = LYNDSAY) Biotin has been reported to cause a negative bias, interpret results relative to patient's use of biotin. Lab Interpretation (test code = 11330-7) Abnormal [facility]MINAL [id number] 02:41:57* Test Item Value Reference Range Interpretation Comme nts NT-proBNP (test code = 2085042501) 169 pg/mL See_Comment H [Automated messa ge] The system which generated this result transmitted reference range: <=125. The reference range was not used to interpret this result as normal/abnormal. LYNDSAY (test code = LYNDSAY) Lab Interpretation (test code = 95352-6) [facility]normal [facility]. METABOLIC PANEL (46245)2021-03-17 02:09:13* Test Item Value Reference Range Interpretation Comme nts NA (test code = 0603294731) 137 mmol/L 135-145 K (test code = 4431213186) 4.2 mmol/L 3.5-5.0 CL (test code = 6195720983) 102 mmol/L 98-108 CO2 TOTAL (test code = 4202141595) 25 mmol/L 23-31 AGAP (test code = 9312099269) 2-16 BUN (test code = 5956535792) 18 mg/dL 7-23 GLUCOSE (test code = 2023562921) 144 mg/dL 70-110 H CREATININE (test code = 3668229954) 0.77 mg/dL 0.50-1.04 TOTAL BILI (test code = 4003411100) 0.4 mg/dL 0.1-1.1 CALCIUM (test code = 6037640533) 8.9 mg/dL 8.6-10.6 T PROTEIN (test code = 2435411709) 6.8 g/dL 6.3-8.2 ALBUMIN (test code = 0514613786) 3.9 g/dL 3.5-5.0 ALK PHOS (test code = 9033159806) 84 U/L 34-122 ALTv (test code = 1742-6) 13 U/L 5-35 AST(SGOT) (test code = 1224023898) 17 U/L 13-40 eGFR (test code = 0242926107) mL/min/1.73m2 LYNDSAY (test code = LYNDSAY) Association [...] imaging tests). Lab Interpretation (test code = 33919-5) Abnormal [facility]. METABOLIC PANEL (00039)2021-03-17 02:09:13* Test Item Value Reference Range Interpretation Comme nts NA (test code = 7511590391) 137 mmol/L 135-145 K (test code = 0411209739) 4.2 mmol/L 3.5-5.0 CL (test code = 7819905819) 102 mmol/L 98-108 CO2 TOTAL (test code = 7992455220) 25 mmol/L 23-31 AGAP (test code = 7439194371) 2-16 BUN (test code = 7244480501) 18 mg/dL 7-23 GLUCOSE (test code = 5030649118) 144 mg/dL 70-110 H CREATININE (test code = 1305768294) 0.77 mg/dL 0.50-1.04 TOTAL BILI (test code = 4068276138) 0.4 mg/dL 0.1-1.1 CALCIUM (test code = 9222348769) 8.9 mg/dL 8.6-10.6 T PROTEIN (test code = 1009697295) 6.8 g/dL 6.3-8.2 ALBUMIN (test code = 9250797839) 3.9 g/dL 3.5-5.0 ALK PHOS (test code = 9147798417) 84 U/L 34-122 ALTv (test code = 1742-6) 13 U/L 5-35 AST(SGOT) (test code = 1473461233) 17 U/L 13-40 eGFR (test code = 8411963820) mL/min/1.73m2 LYNDSAY (test code = LYNDSAY) Lab Interpretation (test cod e = 17387-3) Abnormal [facility] WITH [id number] 01:56:33* Test Item Value Reference Range Interpretation Comme nts WBC (test code = 6690-2) See_Comment H [Automated [employer]] The system which generated this result [...] g/dL 31.6-35.1 L RDW-SD (test code = 34855-3) 55.5 fL 39.0-49.9 H RDW-CV (test code = 788-0) 18.9 % 12.0-15.5 H PLT (test code = 777-3) See_Comment H [Automated messa ge] The system which generated this result transmitted reference range: 166 - 358 10*3/?L. The reference range was not used to interpret this result as normal/abnormal. MPV (test code = 93523-1) 8.2 fL 9.5-12.9 L NRBC/100 WBC (test code = 6845966871) See_Comment [Automated CodeRyte ssage] The system which generated this result transmitted reference range: 0.0 - 10.0 /100 WBCs. The reference range was not used to interpret this result as normal/abnormal. NRBC x10^3 (test code = 7879010596) <0.01 See_Comment [Automated messa ge] The system which generated this result transmitted reference range: 10*3/?L. The reference range was not used to interpret this result as normal/abnormal. GRAN MAT (NEUT) % (test code = 770-8) 61.7 % IMM GRAN % (test code = 2023212791) 0.80 % LYMPH % (test code = 736-9) 28.5 % MONO % (test code = 5905-5) 6.3 % EOS % (test code = 713-8) 1.8 % BASO % (test code = 706-2) 0.9 % GRAN MAT x10^3(ANC) (test code = 3297786765) 7.31 10*3/uL 1.88-7.09 H IMM GRAN x10^3 (test code = 5019136549) 0.09 10*3/uL 0.00-0.06 H LYMPH x10^3 (test code = 731-0) 3.38 10*3/uL 1.32-3.29 H MONO x10^3 (test code = 742-7) 0.75 10*3/uL 0.33-0.92 EOS x10^3 (test code = 711-2) 0.21 10*3/uL 0.03-0.39 BASO x10^3 (test code = 704-7) 0.11 10*3/uL 0.01-0.07 H Lab Interpretation (test code = 92832-3) Abnormal [facility] WITH [id number] 01:56:33* Test Item Value Reference Range Interpretation [...] g/dL 31.6-35.1 L RDW-SD (test code = 29158-9) 55.5 fL 39.0-49.9 H RDW-CV (test code = 788-0) 18.9 % 12.0-15.5 H PLT (test code = 777-3) See_Comment H [Automated messa ge] The system which generated this result transmitted reference range: 166 - 358 10*3/?L. The reference range was not used to interpret this result as normal/abnormal. MPV (test code = 71225-1) 8.2 fL 9.5-12.9 L NRBC/100 WBC (test code = 3305809477) See_Comment [Automated me ssage] The system which generated this result transmitted reference range: 0.0 - 10.0 /100 WBCs. The reference range was not used to interpret this result as normal/abnormal. NRBC x10^3 (test code = 9887946811) <0.01 See_Comment [Automated messa ge] The system which generated this result transmitted reference range: 10*3/?L. The reference range was not used to interpret this result as normal/abnormal. GRAN MAT (NEUT) % (test code = 770-8) 61.7 % IMM GRAN % (test code = 2323852470) 0.80 % LYMPH % (test code = 736-9) 28.5 % MONO % (test code = 5905-5) 6.3 % EOS % (test code = 713-8) 1.8 % BASO % (test code = 706-2) 0.9 % GRAN MAT x10^3(ANC) (test code = 3505523643) 7.31 10*3/uL 1.88-7.09 H IMM GRAN x10^3 (test code = 3314276675) 0.09 10*3/uL 0.00-0.06 H LYMPH x10^3 (test code = 731-0) 3.38 10*3/uL 1.32-3.29 H MONO x10^3 (test code = 742-7) 0.75 10*3/uL 0.33-0.92 EOS x10^3 (test code = 711-2) 0.21 10*3/uL 0.03-0.39 BASO x10^3 (test code = 704-7) 0.11 10*3/uL 0.01-0.07 H Lab Interpretation (test code = 47104-0) Abnormal [facility]-19 (ID NOW RAPID TESTING)2021-03-17 01:38:12* Test Item Value Reference Range Interpretation Comme nts SARS-CoV-2 Rapid ID NOW (test code = 27766-3) Not Detected Not Detected LYNDSAY (test code = LYNDSAY) ID NOW COVID-19 As say is an isothermal nucleic acid amplification test intended for the qualitative detection of nucleic acid from SARS-CoV-2 viral RNA in nasopharyngeal ([employer]STATE PROFESSIONAL) specimens. It is used under Emergency Use [...] clinically indicated. Lab Interpretation (test code = 14099-7) Normal [place] [address] (ID NOW RAPID TESTING)2021-03-17 01:38:12* Test Item Value Reference Range Interpretation Comme nts SARS-CoV-2 Rapid ID NOW (raisa t code = 31591-4) Not Detected Not Detected LYNDSAY (test code = LYNDSAY) Lab Interpretation (test cod e = 59141-0) Normal [facility]19 (ID NOW RAPID TESTING)2021-02-19 17:42:45* Test Item Value Reference Range Interpretation Comme nts SARS-CoV-2 Rapid ID NOW (test code = 27192-0) Not Detected Not Detected LYNDSAY (test code = LYNDSAY) ID NOW COVID-19 As say is an isothermal nucleic acid amplification test intended for the qualitative detection of nucleic acid from SARS-CoV-2 viral RNA in nasopharyngeal (RE[employer]STATE PROFESSIONAL) specimens. It is used under Emergency Use Authorization (EUA) by [facility]. The limit of detection (LOD) of the [...] clinically indicated. Lab Interpretation (test code = 79295-1) Normal [facility] W [id number] 17:24:55Thickening of the gastric antrum and duodenal bulb could be fromunderdistention, the differential would include sequela of peptic ulcerdisease. No findings of ulcer perforation. Otherwise, no acute intra- abdominal or pelvic abnormality. Stable thickening and nodularity of the left adrenal gland. RL: [id number] Patient name: HEATHER TURNERDOB: 1970 51 years [...] Electronicallysigned by James Freeman at 02/19/2021 12:24 PMMet[facility] HospitalUrinalysis2021-08-03 17:03:40* Test Item Value Reference Range Interpretation Comme nts APPEARANCE (test code = 2887390337) Hazy Clear A COLOR (test code = 3160644731) Mabel Yellow A PH (test code = 2921092455) 4.8-8.0 SP GRAVITY (test code = 8201630532) 1.003-1.030 H GLU U QUAL (test code = 1611251452) Normal Normal BLOOD (test code = 0619777235) Negative Negative KETONES (test code = 4034711759) 5 mg/dL Negative A PROTEIN (test code = 2887-8) 30 mg/dL Negative A UROBILIN (test code = 8765842421) 4.0 mg/dL Normal A BILIRUBIN (test code = 7684805446) 4 mg/dL Negative A NITRITE (test code = 5864228258) Negative Negative LEUK GRUPO (test code = 3940805408) Negative Negative RBC/HPF (test code = 3326280401) See_Comment H [Automated messa ge] The system which generated this result transmitted reference range: 0 - 3 HPF. The reference range was not used to interpret this result as normal/abnormal. WBC/HPF (test code = 3614346353) See_Comment H [Automated messa ge] The system which generated this result transmitted reference range: 0 - 5 HPF. The reference range was not used to interpret this result as normal/abnormal. BACTERIA (test code = 1162513275) Few Negative A MUCOUS (test code = 0075915455) Moderate Negative LPF A SQ EPITH (test code = 5866330866) HPF CA OXALATE (test code = 7994897860) See_Comment H [Automated messa ge] The system which generated this result transmitted reference range: <=1 HPF. The reference range was not used to interpret this result as normal/abnormal. Ictotest (test code = 7846922335) Negative Lab Interpretation (test code = 93344-2) Abnormal [facility] Hospital[facility] Metabolic [id number] 16:34:55* Test Item Value Reference Range Interpretation Comme nts NA (test code = 1387642280) 139 mmol/L 135-145 K (test code = 1631644164) 4.3 mmol/L 3.5-5.0 CL (test code = 0193960548) 105 mmol/L 98-108 CO2 TOTAL (test code = 5825580143) 26 mmol/L 23-31 AGAP (test code = 2632591682) 2-16 BUN (test code = 1735407387) 11 mg/dL 7-23 GLUCOSE (test code = 0354987462) 95 mg/dL 70-110 CREATININE (test code = 3256507343) 0.70 mg/dL 0.50-1.04 TOTAL BILI (test code = 9491474483) 0.6 mg/dL 0.1-1.1 CALCIUM (test code = 7486679612) 8.9 mg/dL 8.6-10.6 T PROTEIN (test code = 7695137753) 7.7 g/dL 6.3-8.2 ALBUMIN (test code = 8152481319) 4.1 g/dL 3.5-5.0 ALK PHOS (test code = 2908214041) 79 U/L 34-122 ALTv (test code = 1742-6) 10 U/L 5-35 AST(SGOT) (test code = 3741647300) 22 U/L 13-40 eGFR (test code = 2074459458) mL/min/1.73m2 LYNDSAY (test code = LYNDSAY) Association [...] or urine or abnormalities in imaging tests). [facility] HospitalLipase, [id number] 16:34:14* Test Item Value Reference Range Interpretation Comme nts LIPASE (test code = 7446170148) 45 U/L 0-220 Lab Interpretation (test cod e = 09149-7) Normal [facility] with Zlfpordhkltc0050-92-24 16:21:12* Test Item Value Reference Range Interpretation Comme nts WBC (test code = 6690-2) See_Comment [Automated [employer] ge] The system which generated this result [...] g/dL 31.6-35.1 L RDW-SD (test code = 27529-8) 54.4 fL 39.0-49.9 H RDW-CV (test code = 788-0) 18.3 % 12.0-15.5 H PLT (test code = 777-3) See_Comment H [Automated messa ge] The system which generated this result transmitted reference range: 166 - 358 10*3/?L. The reference range was not used to interpret this result as normal/abnormal. MPV (test code = 89480-3) 8.5 fL 9.5-12.9 L NRBC/100 WBC (test code = 4848196426) See_Comment [Automated me ssage] The system which generated this result transmitted reference range: 0.0 - 10.0 /100 WBCs. The reference range was not used to interpret this result as normal/abnormal. NRBC x10^3 (test code = 6170372149) <0.01 See_Comment [Automated messa ge] The system which generated this result transmitted reference range: 10*3/?L. The reference range was not used to interpret this result as normal/abnormal. GRAN MAT (NEUT) % (test code = 770-8) 78.3 % IMM GRAN % (test code = 4707391952) 0.40 % LYMPH % (test code = 736-9) 15.4 % MONO % (test code = 5905-5) 4.8 % EOS % (test code = 713-8) 0.1 % BASO % (test code = 706-2) 1.0 % GRAN MAT x10^3(ANC) (test code = 3058091593) 7.15 10*3/uL 1.88-7.09 H IMM GRAN x10^3 (test code = 5871048464) 0.04 10*3/uL 0.00-0.06 LYMPH x10^3 (test code = 731-0) 1.41 10*3/uL 1.32-3.29 MONO x10^3 (test code = 742-7) 0.44 10*3/uL 0.33-0.92 EOS x10^3 (test code = 711-2) <0.03 0.03-0.39 L BASO x10^3 (test code = 704-7) 0.09 10*3/uL 0.01-0.07 H Lab Interpretation (test code = 15199-1) Abnormal [facility] Notes Date/Time Note Provider Source 2023-09-11 11:34:02 JyE6G6uYVhEQMnbxKUXEHIFknVYfwiC/d0RsA3 HycnxBGHxvg/QThWcsjen0BB7k2869-79-01O2 1:34:02 Chief ComplaintPatient presents withFollow-up HospitalizationPaBETO HarperN 74866-5Esloh VskmLJ0055-48-52M87:34:35Nurse NoteTXT1.2.840.347925.1.13.131.2.7.2.7 98900|[id number] for patient omqp60869-4Jwwzo NoteLNNARRATIVEFormatted C-CDA narrative textKELWilson Street Hospital27[address] [facility].[id number] 939-78-51F22:34:351.2.840.408891.1.72. 3.15|1.2.840.897145.1.13.131.2.7.2.727 [id number] [facility] 2023-08-12 16:08:34 MvZOtyQoipPRg92R8hnOihDt/WgacRz7d+T3SV hGqlmtQrUCXvq1lCKmO6VFOmex7393-77-49A0 6:08:34 Bryan spoke to patient and patient decided to leave AMA.AMA form signed by patient and attached to paperwork.Patient in stable condition with AMA. IV line removed and patient was assisted onto wheelchair and moved to the [facility].Patient called her prior to leaving room and will be picking up patient. 93586-4Ckyabvfhd department WppkLU8175-60-66B32:09:43Emergency department NoteTXT1.2.840.779237.1.13.104.2.7.2.7 33252|[id number] for patient gxqu31384-3FaykVQHRXKTZHOEOxafoihxy C-CDA narrative [id number] REDMOND - [address] StreetEg[id number] KUDPMUXHAJYHNWMSIMGN0955-00-54Y22:09:4 31.2.840.064458.1.72.3.15|1.2.840.1143 50.1.13.104.2.7.2.727879_[id number] Steph Dumont RN [facility] 2023-08-12 15:56:21 +/LcAtUyVyX624/gqAtfOVjeH1F0qWTZmWrFFb R7CuqgaqiJqZlLzkxxWrwTDCtR8325-14-62Y9 5:56:21 Patient requesting to talk to provider - provider aware.Patient refused tylenol as she said medication does not improve her condition and she does not want to throw it up.Patient also refusing blood draw at this time. 25905-9Izniezief department QoiuSI1269-37-45S49:57:14[facility] NoteTXT1.2.840.378077.1.13.104.2.7.2.7 51991|[id number] for patient zzst24841-0RkbfZLGPHBNRUQUMzprifffd C-CDA narrative text[address] EizrFcaxymcxoKoliewpgaZIOJ9181572732TK XVCZYDMYQHMZQVLZRMRY9657-94-73L23:57:1 41.2.840.298376.1.72.3.15|1.2.840.1143 50.1.13.104.2.7.2.727879_[id number] [facility] 2023-08-12 14:50:00 bg1MwQMT5fsSdEhjLdIf7AGVaBcCHc1e1C/mPV jb3NyeD1FYEj2lO3iU2VQ0Bvmt0965-66-05W0 4:50:00 Patient's name and verified with patient.No [...] [place] [address]-0Emmcgffnx department GiyrTA0965-11-91T59:29:07Emergen department NoteTXT1.2.840.298923.1.13.104.2.7.2.7 19886|[id number] for patient yhgb01175-5IjkmBKUFHQESDKJGhkusbqyo C-CDA narrative textUT[address] EkkbIiuxlvtxbBqlptxjvpWCQK5169021720WW JIJUYDTQLXWYSGJEQAWF2695-42-05M16:29:0 71.2.840.112590.1.72.3.15|1.2.840.1143 50.1.13.104.2.7.2.727879_[id number] [facility] 2023-08-12 14:17:22 bl7DMDo3lV0pV1Ie8NY80FZjFOnc++6sjx2fx0 iEP6OgsJ+xeRVaodsLoVShEruo7504-79-76R4 4:17:22 Patient had witnessed seizure like activity.DO Flor at bedside.Patient stopped seizure activity and had no postictal phase.Patient coherent, alert and oriented/answering all questions appropriately. 70811-0Pqstznmjn department ChcnYH9356-24-01X54:18:15[facility] department NoteTXT1.2.840.950935.1.13.104.2.7.2.7 01523|[id number] for patient agql95770-4GhxuDEVHOWOQGZCAdffwbjsy C-CDA narrative textUT[address] YhuxGjwrayvprWvhqtsparAXFY7908046784YH WOLZNQBTSQYTBAFURAXG9345-75-98T99:18:1 51.2.840.190432.1.72.3.15|1.2.840.1143 50.1.13.104.2.7.2.727879_[id number] [facility] 2023-08-12 13:45:33 OhHUg0Xu5kDIJqxpLzc4JtM22Lk1xXt/HjgJpP W+B+hq2yUO0y7lLn/AWx6SLBM85444-37-29H4 3:45:33 Patient here for chest pain that started approximately 1 hour ago. Patient had seizure like activity in the vehicle while attempting to get patient out of the car, patient had no post ictal phase. Patient c/o substernal chest pain and jaw pain. 88725-8Splfwqmhd department Triage gdxiRU3293-00-99X25:46:59[facility] Triage noteTXT1.2.840.042673.1.13.104.2.7.2.7 15842|[id number] for patient rpvm75339-9Ezconjjkj department NoteLNNARRATIVEFormatted C-CDA narrative rbfm215190903Ywqbz S Cryer RN[address] CkucOhitrbxajVvdxsmbymCAEK7043881913JK BZWKIXVYSQFWCJXDEEOO9857-73-28F30:46:5 91.2.840.453904.1.72.3.15|1.2.840.1143 50.1.13.104.2.7.2.727879_[id number] Jasvir Reaves RN [facility] 2023-08-12 13:42:00 LhLkXcBjAJNB3+avrS/9yvxJystDqCAW27Mv/c +2Rw+/T6JU05Y9f3g6mjhjRBtC1192-80-21M2 3:42:00 [facility] Emergency Department NotePatient Name: Heather TurnerDate of : 1970 53 year old femaleTreatment Room: [address] Record Number: [id number] [facility] Physician: PATIENT DOES NOT HAVE A PCPPatient Escorted by: Family [5]Mode of Arrival: Personal means [1]EMS Treatment 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 METABOLIC PANEL (10042) - AbnormalNA 140 135 - 145 mmol/LK [...] U/LAST(SGOT) 21 13 - 40 U/LeGFR 107.1 mL/min/1.11i3XWQUVR ACID WHOLE BLOOD - NormalLACTIC ACID 1.56 0.50 - 2.20 mmol/LURINALYSISTROPONIN IEKG:If EKG completed, see Procedure Note.Orders and Treatments:Orders Placed This EncounterProceduresCbc with DiffComp. Metabolic Panel (52885)UrinalysisLactic Acid Whole BloodTroponin IOrders Placed This EncounterMedicationslacosamide (VIMPAT) 100 mg in NaCl 0.9% (NS) 50 mL piggybackacetaminophen (TYLENOL) tablet 1,000 mgFirst Provider Eval:ED EventsDate/Time Event User Ecypjptr51/24/24 1345 Medical Screening Begins BRIAN BRYAN --08/12/23 1345 First Provider Evaluation BRIAN BRYAN --ED COURSEED Course as of 08/12/23 1605Wed Aug 12 Lactic normal. Patient requesting to leave prior to treatment complete. Discussed risks of leaving. [PS]ED Course User Index[PS] Brian Bryan DODiagnosis/Impression as of 08/12/23 1605SeizureChest pain, unspecified typeProcedures:ProceduresMDM:Medical Decision MakingStephanhiginio Turner is a 53 year old female [...] these medicationsNo medications on fileFollow-up:Contact information for follow-RachelaroYehuda guo MDSpecialty: -[facility] AND [address] [address]Zyjjk: [phone]-Emergency DepartmentSpecialty: Emergency W[address]cufz[address] [place] [address]Qqcwi: [phone]: If symptoms worsen as documented in the dischargeElectronically signed by:Brian Bryan DO08/12/23 1605Brian Bryan DO08/12/23 1605 [address]89[address]-9Xorcytivc Emergency department NteqTK9163-92-21E89:05:59Physician Emergency department NoteTXT1.2.840.332032.1.13.104.2.7.2.7 84257|[id number] for patient nfry03432-0Mnmauiauy department NoteLNNARRATIVEFormatted C-CDA narrative textUTMBUTMB - Gqfuni639 University VfmvMqfqznikrRionsuopsNVYQ7413349134PW UPTCLSWUPMRKMTNOUFEP7132-38-44G42:05:5 91.2.840.983186.1.72.3.15|1.2.840.1143 50.1.13.104.2.7.2.727879_[id number] [facility]
[2023-09-18] MEDS ORDERED: HYDROMORPHONE HCL 1 MG/ML INJ ONE (21:09)
[2023-09-18] MEDS ORDERED: ONDANSETRON 4 MG/2 ML VIAL ONE (21:09)
[2023-09-18 21:15] LABS: Absolute Lymphocytes (CBC) 1.8 K/uL (0.7-4.9); Basophils % 0.6 % (0-1.3); Eosinophils % 0.7 % (0-4.4); Hematocrit 31.8 % (36.0-45.0); Hemoglobin 10.2 g/dL (12.0-15.0); Lymphocytes % 26.1 % (15.3-44.8); MCV 81.8 fL (80-100); MPV 6.3 fL (7.6-11.3); Platelets 525 thou/uL (152-406); RBC Red Blood Cell Count 3.88 M/uL (3.86-4.86)
[2023-09-18 21:23] LABS: Protime INR 1.08
[2023-09-18 21:36] LABS: ALT/SGPT 22 U/L (13-56); AST/SGOT 19 U/L (15-37); Albumin 3.3 g/dL (3.4-5.0); Albumin/Globulin Ratio 0.8 (1.1-1.8); Alkaline Phosphatase 115 U/L (45-117); Anion Gap 14.4 mEq/L (5.0-15.0); BUN Blood Urea Nitrogen 5 mg/dL (7-18); Bicarbonate 20 mEq/L (21-32); Bilirubin Direct 0.1 mg/dL (0-0.2); Bilirubin Indirect, Calculated 0.2 mg/dL (0.2-0.8); Bilirubin Total 0.3 mg/dL (0.2-1.0); Glomerular Filtration Rate 107 ml/min (=/>90); Glucose Level 78 mg/dL (74-106); Magnesium 2.1 mg/dL (1.6-2.4); Potassium 3.4 mEq/L (3.5-5.1); Protein, Total 7.3 g/dL (6.4-8.2); Sodium Level 137 mEq/L (136-145)
[2023-09-18 21:47] LABS: Valproic Acid (Depakene) Level < 3.0 mcg/mL (50.0-100.0)
--- NOTE | 2023-09-18 21:54 | RAD REPORT ---
EXAM DESCRIPTION: CT - Head C Spine Cap Sushma Con - 09/18/2023 9:24 pm CLINICAL HISTORY: Head and neck injury with chest and abdominal pain status post fall TECHNIQUE: Computed axial tomography of head, neck, chest, abdomen and pelvis obtained. IV and oral contrast not requested. Coronal and sagittal reconstruction performed. All CT scans are performed using dose optimization technique as appropriate and may include automated exposure control or mA/KV adjustment according to patient size. COMPARISON: 2022 FINDINGS: An intracranial bleed is not seen. The ventricles are normal in caliber. An extra-axial fluid collection is not noted. Small meningioma suspected along the right aspect of the falx unchanged. No surrounding edema Fluid within the sinuses/mastoids is not seen. A cervical fracture is not seen. No dislocation is noted. Anterior fusion C3 through C7 again demonst rated The evaluation of mediastinum, sree, vessels, solid organs and bowel are limited secondary to the lac k of contrast administration. A mediastinal hematoma is not noted. A pleural effusion is not seen. A lung contusion is not present. Mild reticulonodular opacities right lung The liver,spleen, pancreas, adrenals,kidneys and bladder do not demonstrate an acute traumatic injury Postsurgical changes lumbar spine. Monroy catheter within the bladder. Left adrenal adenoma IMPRESSION: No acute intracranial abnormality is seen. A cervical fracture is not visualized. If the patient continues to have symptoms to suggest intracran ial/spinal cord pathology MRI be recommended No acute traumatic abnormality involving the chest, abdomen or pelvis
[2023-09-18] MEDS ORDERED: VALPROATE NA 500 MG/5 ML INJ IV ONE (21:55)
[2023-09-18] MEDS ORDERED: NA CHLORIDE 0.9% 100 ML ONE (21:55)
[2023-09-18] MEDS ORDERED: DIAZEPAM 10 MG/2 ML INJ SYRINGE ONE (23:39)
[2023-09-18] MEDS ORDERED: METOCLOPRAMIDE 10 MG/2mL INJ ONE (23:40)
[2023-09-18] MEDS ORDERED: KETOROLAC 30 MG/ML INJ ONE (23:40)
--- NOTE | 2023-09-19 00:10 | ER ---
Nurse's Notes [facility] Name: Heather Coon Age: 53 yrs Sex: Female : 1970 Arrival Date: 09/18/2023 Time: 20:23 Bed 19 Private MD: Diagnosis: Post traumatic seizures;intractable pain Presentation: 09/17 20:37 Chief complaint: EMS states: pt had a fall from her wheelchair today. pt fell onto back as6 and then fell back and hit head. pt has since then had 4 seizures. 2 of which were witnessed by EMS. EMS gave 1mg Ativan IV. Coronavirus screen: At this time, the client does not indicate any symptoms associated with coronavirus-19. Ebola Screen: No symptoms or risks identified at this time. Initial Sepsis Screen: Does the patient meet any 2 criteria? No. Patient's initial sepsis screen is negative. Does the patient have a suspected source of infection? No. Patient's initial sepsis screen is negative. Risk Assessment: Do you want to hurt yourself or someone else? Patient reports no desire to harm self or others. Onset of symptoms was September 18, 2023. 20:37 Acuity: ANDER 2 as6 20:37 Method Of Arrival: EMS: [facility] as6 Triage Assessment: 20:59 General: Appears uncomfortable, Behavior is calm, cooperative. Pain: Complains of pain as6 in head and back Quality of pain is described as aching. Historical: - Allergies: 20:37 fluoxetine; as6 20:37 Green Tea; as6 20:37 Keppra; not an allergy; as6 - PMHx: 20:37 Anxiety; Arthritis; Bipolar disorder; Cancer-Cervical; Chronic obstructive lung as6 disease; Chronic pain; Congestive heart failure; Depression; Diverticulitis; Herniated Back Disc; Hypertension; intestinal mass; Myocardial infarction; pt reports hx of seizures; Spastic Muscles; stroke; - PSHx: 20:37 back surgery; cervical fusion; Cholecystectomy; foot; Tonsillectomy; as6 - Immunization history:: Adult Immunizations up to date. - Social history:: Smoking status: Patient reports the use of cigarette tobacco products, smokes one pack cigarettes per day. Screenin:59 [facility] ED Fall Risk Assessment (Adult) Score/Fall Risk Level 3 or more points = High as6 Risk. Abuse screen: Denies threats or abuse. Denies injuries from another. Nutritional screening: No deficits noted. Tuberculosis screening: No symptoms or risk factors identified. Assessment: 21:32 General: Appears uncomfortable, Behavior is calm, cooperative. Pain: Complains of pain tm6 in back Pain currently is 8 out of 10 on a pain scale. at worst was 10 out of 10 on a pain scale. Quality of pain is described as burning, aching, throbbing, Pain began 1 hour ago. Neuro: Level of Consciousness is awake, alert, obeys commands, Oriented to person, place, time, situation. Neuro: Reports Seizure activity reported prior to arrival. Cardiovascular: Capillary refill < 3 seconds Patient's skin is warm and dry. Rhythm is sinus tachycardia. Respiratory: Airway is patent Respiratory effort is even, unlabored, Respiratory pattern is regular, symmetrical. GI: Abdomen is round non-distended. : No signs and/or symptoms were reported regarding the genitourinary system. EENT: No signs and/or symptoms were reported regarding the EENT system. Derm: No signs and/or symptoms reported regarding the dermatologic system. Musculoskeletal: Reports pain in buttocks and lumbar area and back and head since falling 1-2 hours ago. 21:51 Reassessment: Patient and/or family updated on plan of care and expected duration. Pain tm6 level reassessed. Patient is alert, oriented x 3, equal unlabored respirations, skin warm/dry/pink. 22:35 Reassessment: Patient and/or family updated on plan of care and expected duration. Pain tm6 level reassessed. Patient is alert, oriented x 3, equal unlabored respirations, skin warm/dry/pink. 22:40 Pain: Complains of pain in chest Quality of pain is described as pressure. tm6 23:26 Reassessment: Patient appears in no apparent distress at this time. Patient and/or tm6 family updated on plan of care and expected duration. Pain level reassessed. Patient is alert, oriented x 3, equal unlabored respirations, skin warm/dry/pink. 09/18 01:23 Reassessment: No changes from previously documented assessment. tm6 01:43 Reassessment: report called to Jeffrey BARNETT tm6 Vital Signs: 09/17 20:37 BP 136 / 85; Pulse 119; Resp 20 S; Temp 99(O); Pulse Ox 96% on R/A; Weight 81.65 kg as6 (R); Height 5 ft. 3 in. (R); Pain 10/10; 21:32 BP 112 / 76; Pulse 114; Resp 19; Pulse Ox 94% on R/A; Pain 8/10; tm6 21:50 BP 105 / 61; Pulse 109; Pulse Ox 97% ; Pain 7/10; tm6 22:34 BP 109 / 75; Pulse 109; Pulse Ox 98% on 2 lpm NC; Pain 5/10; tm6 23:25 BP 117 / 84; Pulse 108; Pulse Ox 97% on 1 lpm NC; tm6 09/18 01:22 BP 108 / 77; Pulse 103; Resp 26; Pulse Ox 97% on 1 lpm NC; Pain 0/10; tm6 09/17 20:37 Body Mass Index 31.89 (81.65 kg, 160.02 cm) as6 09/17 20:37 Pain Scale: Adult as6 21:32 Pain Scale: Adult tm6 21:50 Pain Scale: Adult tm6 22:34 Pain Scale: Adult tm6 09/18 01:22 Pain Scale: Adult tm6 ED Course: 09/17 20:37 Patient arrived in ED. as6 20:37 Arm band placed on. as6 20:40 Mariola Mahmood PA-C is PHCP. sb4 20:40 Andrea Pizano MD is Attending Physician. sb4 20:43 Triage completed. as6 20:44 Maintain EMS IV. Dressing intact. Good blood return noted. Site clean \T\ dry. Gauge \T\ as 6 site: 20g LAC. 20:45 Bed in low position. Call light in reach. Side rails up X2. Client placed on continuous as6 cardiac and pulse oximetry monitoring. NIBP monitoring applied. 20:58 Monroy cath inserted, using sterile technique, 16 Fr., by ok, balloon inflated, to as6 gravity drainage, returned clear yellow urine. Patient tolerated well. 21:05 Tawanda Shaw, RN is Primary Nurse. tm6 21:26 CT Traumagram (Head C Spine CAP wo con) In Process Unspecified. EDMS 21:32 Provided Education on: plan of care. Door closed. Noise minimized. Lights dimmed. Warm tm6 blanket given. 21:49 Oxygen administration via nasal cannula \T\ 2L/min. tm6 21:50 Seizure precautions initiated. tm6 09/18 00:09 Lenin Moore MD is Hospitalizing Provider. sb4 00:09 Deandre Moore MD is Hospitalizing Provider. sb4 02:12 No provider procedures requiring assistance completed. Patient admitted, IV remains in tm6 place. Administered Medications: 09/17 21:17 Drug: HYDROmorphone IVP 1 mg IVP once Route: IVP; Site: left antecubital; tm6 21:17 Drug: Ondansetron IVP 4 mg IVP once; over 2 minutes Route: IVP; Site: left antecubital; tm6 22:07 Drug: Valproic Acid IV 500 mg IV at calculated rate once over 60 mins; (mix in 100 mL tm6 NS) Route: IV; Rate: calculated rate; Infused Over: 60 mins; Site: left antecubital; 23:03 Follow up: Response: No adverse reaction; IV Status: Completed infusion tm6 23:50 Follow up: Response: No adverse reaction; IV Status: Completed infusion tm6 23:49 Drug: Diazepam IVP 5 mg IVP once Route: IVP; Site: left antecubital; tm6 23:49 Drug: Ketorolac IVP 30 mg IVP once Route: IVP; Site: left antecubital; tm6 23:49 Drug: metoCLOPramide IVP 10 mg IVP once; over 1 to 2 minutes Route: IVP; Site: left tm6 antecubital; Medication: 21:00 VIS not applicable for this client. as6 Outcome: 09/18 00:10 Decision to Hospitalize by Provider. sb4 02:13 Admitted to Med/surg accompanied by nurse, with oxygen, with chart, Report called to tm6 Jeffrey CAMPOS 02:13 Condition: stable 02:13 Instructed on the need for admit, 02:14 Patient left the ED. 6 Signatures: Dispatcher [employer] Jonathan Roberts, BETH RN as6 Mariola Mahmood, PA-C PA-C sb4 Tawanda Shaw RN RN 6
--- NOTE | 2023-09-19 00:11 | EDPHYS ---
Physician Documentation [facility] Name: Heather Coon Age: 53 yrs Sex: Female : 1970 Arrival Date: 09/18/2023 Time: 20:23 Bed 19 Private MD: ED Physician Andrea Pizano HPI: 09/17 21:32 This 53 yrs old Female presents to ER via EMS with complaints of Seizure, Fall Injury. sb4 21:32 patient was sitting in her wheelchair today and didn't realize it was unlocked. she sb4 moved, causing it to tip over and hit the back of her head and injured her lower back. EMS reports 4 seizures since. she states her seizures are triggered by pain. she is prescribed depakote but has not been taking it. states marijuana controls her seizures, which she has been using regularly. Historical: - Allergies: 20:37 fluoxetine; as6 20:37 Green Tea; as6 20:37 Keppra; not an allergy; as6 - PMHx: 20:37 Anxiety; Arthritis; Bipolar disorder; Cancer-Cervical; Chronic obstructive lung as6 disease; Chronic pain; Congestive heart failure; Depression; Diverticulitis; Herniated Back Disc; Hypertension; intestinal mass; Myocardial infarction; pt reports hx of seizures; Spastic Muscles; stroke; - PSHx: 20:37 back surgery; cervical fusion; Cholecystectomy; foot; Tonsillectomy; as6 - Immunization history:: Adult Immunizations up to date. - Social history:: Smoking status: Patient reports the use of cigarette tobacco products, smokes one pack cigarettes per day. ROS: 21:32 Constitutional: Negative for fever, chills, and weight loss, sb4 21:32 Back: Positive for pain at rest, pain with movement, of the lumbar area, 21:32 Neuro: Positive for headache, seizure activity, 21:32 All other systems are negative, Exam: 22:46 Head/Face: Normocephalic, atraumatic. Eyes: Extra-ocular motions intact. Periorbital sb4 areas with no swelling, redness, or edema. ENT: Mucous membranes moist. Cardiovascular: Regular rate and rhythm with a normal S1 and S2. Respiratory: Lungs have equal breath sounds bilaterally, clear to auscultation and percussion. No rales, rhonchi or wheezes noted. No increased work of breathing, no retractions or nasal flaring. Abdomen/GI: Soft, non-tender, no distension. Skin: Warm, dry with normal turgor. Normal color with no rashes, no lesions, and no evidence of cellulitis. MS/ Extremity: Pulses equal, no cyanosis. Neurovascular intact. Full, normal range of motion. Neuro: Awake and alert, GCS 15, oriented to person, place, time, and situation. Motor strength 5/5 in all extremities. Sensory grossly intact. 22:46 Constitutional: The patient appears alert, awake, in obvious pain, Vital Signs: 20:37 BP 136 / 85; Pulse 119; Resp 20 S; Temp 99(O); Pulse Ox 96% on R/A; Weight 81.65 kg as6 (R); Height 5 ft. 3 in. (R); Pain 10/10; 21:32 BP 112 / 76; Pulse 114; Resp 19; Pulse Ox 94% on R/A; Pain 8/10; tm6 21:50 BP 105 / 61; Pulse 109; Pulse Ox 97% ; Pain 7/10; tm6 22:34 BP 109 / 75; Pulse 109; Pulse Ox 98% on 2 lpm NC; Pain 5/10; tm6 23:25 BP 117 / 84; Pulse 108; Pulse Ox 97% on 1 lpm NC; tm6 09/18 01:22 BP 108 / 77; Pulse 103; Resp 26; Pulse Ox 97% on 1 lpm NC; Pain 0/10; tm6 09/17 20:37 Body Mass Index 31.89 (81.65 kg, 160.02 cm) as6 09/17 20:37 Pain Scale: Adult as6 21:32 Pain Scale: Adult tm6 21:50 Pain Scale: Adult tm6 22:34 Pain Scale: Adult tm6 09/18 01:22 Pain Scale: Adult tm6 MDM: 09/17 20:41 Patient medically screened. sb4 23:43 ED course: per chart review, tachycardia is chronic. sb4 09/18 00:08 Data reviewed: vital signs, nurses notes, EMS record, lab test result(s), EKG, sb4 radiologic studies, I have discussed the patient's presentation/case with the attending Emergency Department Physician; and as a result, I will admit patient. Consideration of Admission/Observation Patient was admitted/placed on observation. Counseling: I had a detailed discussion with the patient and/or guardian regarding the historical points, exam findings, and any diagnostic results supporting the discharge/admit diagnosis, lab results, radiology results, the need for further work-up and treatment in the hospital. 03 21:04 Order name: Basic Metabolic Panel; Complete Time: 21:50 sb4 09/17 21:04 Order name: CBC with Diff; Complete Time: 21:16 sb4 09/17 21:04 Order name: Hepatic Function; Complete Time: 21:50 sb4 09/17 21:04 Order name: Magnesium; Complete Time: 21:50 sb4 09/17 21:04 Order name: Protime (+inr); Complete Time: 21:30 sb4 09/17 21:04 Order name: Ptt, Activated; Complete Time: 21:30 sb4 09/17 21:04 Order name: Valproic Acid (depakote); Complete Time: 21:50 sb4 09/17 21:07 Order name: CT Traumagram (Head C Spine CAP wo con); Complete Time: 21:55 sb4 09/17 21:04 Order name: EKG; Complete Time: 21:04 sb4 09/17 21:04 Order name: Cardiac monitoring; Complete Time: 21:04 sb4 09/17 21:04 Order name: EKG - Nurse/Tech; Complete Time: 21:40 sb4 09/17 21:04 Order name: IV Saline Lock; Complete Time: 21:04 sb4 09/17 21:04 Order name: Labs collected and sent; Complete Time: 21:17 sb4 09/17 21:04 Order name: NPO; Complete Time: 21:17 sb4 09/17 21:04 Order name: O2 Per Protocol; Complete Time: 21:04 sb4 09/17 21:04 Order name: O2 Sat Monitoring; Complete Time: 21:04 sb4 EC/01 22:46 Rate is 110 beats/min. Rhythm is regular, Sinus tachycardia. NH interval is normal at sb4 140 msec. QRS interval is normal at 86 msec. QT interval is normal at [address] changes noted. Clinical impression: Abnormal EKG without significant change. Interpreted by me. Reviewed by me. Administered Medications: 21:17 Drug: HYDROmorphone IVP 1 mg IVP once Route: IVP; Site: left antecubital; tm6 21:17 Drug: Ondansetron IVP 4 mg IVP once; over 2 minutes Route: IVP; Site: left antecubital; tm6 22:07 Drug: Valproic Acid IV 500 mg IV at calculated rate once over 60 mins; (mix in 100 mL tm6 NS) Route: IV; Rate: calculated rate; Infused Over: 60 mins; Site: left antecubital; 23:03 Follow up: Response: No adverse reaction; IV Status: Completed infusion tm6 23:50 Follow up: Response: No adverse reaction; IV Status: Completed infusion tm6 23:49 Drug: Diazepam IVP 5 mg IVP once Route: IVP; Site: left antecubital; tm6 23:49 Drug: Ketorolac IVP 30 mg IVP once Route: IVP; Site: left antecubital; tm6 23:49 Drug: metoCLOPramide IVP 10 mg IVP once; over 1 to 2 minutes Route: IVP; Site: left tm6 antecubital; Disposition Summary: 09/19/23 00:10 Hospitalization Ordered Notes: Hospitalization Status: Observation sb4 Provider: Deandre Moore Location: Telemetry/MedSurg (observation) sb4 Condition: Fair sb4 Problem: new sb4 Symptoms: are unchanged sb4 Bed/Room Type: Standard 4 Room Assignment: [facility](09/19/23 01:34) [facility] Diagnosis - Post traumatic seizures sb4 - intractable pain sb4 Forms: - Medication Reconciliation Form sb4 - SBAR form sb4 - Leadership Thank You Letter sb4 Addendum: 09/20/2023 06:26 I was immediately available for consultation during this patient's visit. I did not e c2 personally see the patient or discuss the patient with the NOHELIA. . Signatures: Dispatcher [employer] Jonathan Roberts RN RN as6 Mariola Mahmood PA-C PA-C sb4 Andrea Pizano MD MD ec2 Cynthia Mariscal [facility] Tawanda Shaw RN RN tm6 Corrections: (The following items were deleted from the chart) 09/17 21:09 20:45 Head C Spine MPR Wo Con+CT.RAD.BRZ ordered. EDMS EDMS 21:12 21:09 Head C Spine Cap Wo Con ordered. EDMS EDMS 09/18 01:34 00:10 sb4 kmf
[2023-09-19] MEDS: ARFORMOTEROL TARTRATE 15 MCG/2 ML VIAL.NEB NEB SCH (01:27)
--- NOTE | 2023-09-19 01:32 | P.HP ---
Certification for Inpatient Patient admitted to: Inpatient With expected LOS: <2 Midnights Patient will require the following post-hospital care: None Practitioner: I am a practitioner with admitting privileges, knowledge of patient current condition, hospital course, and medical plan of care. Services: Services provided to patient in accordance with Admission requirements found in Title 42 Section 412.3 of the Code of Federal Regulations Patient History Date of Service: 09/19/23 Reason for admission: Recent fall History of Present Illness: Patient is 53 years of age with a history of COPD apparently she was trying to get out from a wheelchair her did not lock and she fell on her back she now complains of pain in her right leg and in the buttock area. She denies any loss of consciousness she is fallen before currently patient is nonambulatory due to back surgery history of COPD a current smoker Allergies levetiracetam [From Kera] Allergy (Verified 05/15/23 21:02) Anaphylaxis Green tea Allergy (Mild, Uncoded 05/15/23 21:02) seizures Home Medications: Divalproex Sodium [Depakote] 250 mg PO BID 01/15/23 methocarbamoL [Methocarbamol] 2 tab PO QID 01/15/23 Fluticasone/Umeclidin/Vilanter [Trelegy Ellipta 100-62.5-25] 1 each IH DAILY 30 Days #30 aero 05/04/23 Aspirin [Roxanne Chewable Aspirin] 81 mg PO DAILY #30 tab.chew 05/05/23 Furosemide [Lasix*] 40 mg PO DAILY tab 05/19/23 Metoprolol Tartrate [Lopressor*] 25 mg PO BID 6AM 6PM tab 05/19/23 Nitroglycerin [Nitrostat*] 0.4 mg SL UD PRN tab 05/19/23 clonazePAM [Klonopin*] 1 mg PO BEDTIME tab 05/19/23 - Past Medical/Surgical History Diabetic: No -: COPD -: Hypertension -: migraines -: Depression with anxiety -: Pancreatitis -: Coronary artery disease-prior myocardial infarction -: Diverticulitis -: Seizure disorder -: Herniated back disc -: Diverticulitis -: Herniated back disc -: history of seizures -: 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 -: cholecystectomy -: 5 hand surgeries -: tonsilectomy Psychosocial/ Personal History: Lives at home with her boyfriend - Family History Father -: Hypertension, Other (see notes) Notes: No premature coronary disease Mother -: Heart disease, Hypertension, GI disease, Diabetes, Liver disease, Kidney disease - Social History Smoking Status: Current every day smoker Alcohol use: Yes CD- Drugs: Yes Caffeine use: No Review of Systems General: Weakness Respiratory: Cough, Shortness of Breath Musculoskeletal: Back Pain, Leg Pain, As per HPI Neurological: Other (No acute changes) Physical Examination - Vital Signs Temperature: 98 F Blood Pressure: 121/85 Pulse: 98 Respirations: 22 Pulse Ox (%): 98 - Physical Exam General: Alert, Moderate distress HEENT: Atraumatic Neck: Supple Respiratory: Expiratory wheezes, Rhonchi/gurgles Cardiovascular: No edema, Regular rate/rhythm, Normal S1 S2 Gastrointestinal: Normal bowel sounds, Soft and benign Musculoskeletal: No warmth, Other (Patient have discomfort movement on the right leg and on her buttock area) Integumentary: No breakdown, No significant lesion - Studies Laboratory Data (last 24 hrs) 09/18/23 09/18/23 09/18/23 21:06 21:06 21:06 WBC 7.00 Hgb 10.2 L Hct 31.8 L Plt Count 525 H PT 11.9 INR 1.08 APTT 30.5 Sodium 137 Potassium 3.4 L BUN 5 L Creatinine 0.63 Glucose 78 Magnesium 2.1 Total Bilirubin 0.3 AST 19 ALT 22 Alkaline Phosphatase 115 Assessment and Plan - Problems (Diagnosis) (1) Pain in lower back Current Visit: Yes Status: Acute Plan: Patient is 53 years of age recently fell apparently tried to get out of her wheelchair and hurt her back and the leg. She has had falls before if patient is unable to ambulate due to problems with the back she has had surgery before the history of COPD active smoker patient has active wheezing and rhonchi will add bronchodilators steroids pain relief labs chemistries reviewed mildly anemic CT scan of the entire body does not show any fractures. Plan to admit pain relief possible discharge in 24 hours Qualifiers: Chronicity: acute Back pain laterality: midline Sciatica presence: without sciatica Qualified Code(s): M54.50 - Low back pain, unspecified Discharge Plan: Home Plan to discharge in: 24 Hours - Advance Directives Does patient have a Living Will: No Does patient have a Durable POA for Healthcare: No
[2023-09-19] MEDS: predniSONE 20 MG TAB PO SCH (02:45)
[2023-09-19 04:04] VITALS: BMI 33.1
[2023-09-19] MEDS: HYDROMORPHONE HCL 1 MG/ML INJ IV PRN (04:41)
[2023-09-19] MEDS ORDERED: NITROGLYCERIN 0.4 MG/TAB SL PRN (05:47)
[2023-09-19] MEDS: METOPROLOL TAR 25 MG TAB PO SCH (06:38)
[2023-09-19] MEDS: IPRATROPIUM BROM 0.5MG/2.5ML NEB SCH (07:12)
[2023-09-19 08:03] LABS: Absolute Basophils 0.1 K/uL (0-0.5); Absolute Lymphocytes (CBC) 0.6 K/uL (0.7-4.9); Basophils % 1.1 % (0-1.3); Eosinophils % 0.6 % (0-4.4); Hemoglobin 10.3 g/dL (12.0-15.0); Lymphocytes % 12.8 % (15.3-44.8); MCV 82.3 fL (80-100); MPV 6.2 fL (7.6-11.3); Platelets 451 thou/uL (152-406); RBC Red Blood Cell Count 3.89 M/uL (3.86-4.86)
[2023-09-19] MEDS: ASPIRIN 81 MG CHEWABLE TABLET PO SCH (08:17)
[2023-09-19] MEDS: DIVALPROEX DR 250 MG TAB PO SCH (08:17)
[2023-09-19] MEDS: Fluticasone/Umeclidin/Vilanter [Trelegy Ellipta 100-62.5-25] Blst.W.Dev IH SCH (08:18)
[2023-09-19] MEDS: HYDROCODONE/APAP 5/325 MG TAB PO PRN (08:24)
[2023-09-19 08:31] LABS: Albumin 3.1 g/dL (3.4-5.0); Albumin/Globulin Ratio 0.7 (1.1-1.8); Anion Gap 7.4 mEq/L (5.0-15.0); Bilirubin Total 0.4 mg/dL (0.2-1.0); Globulin 4.2 g/dL (2.3-3.5); Magnesium 2.2 mg/dL (1.6-2.4); Phosphorus 5.1 mg/dL (2.5-4.9); Potassium 4.4 mEq/L (3.5-5.1); Protein, Total 7.3 g/dL (6.4-8.2)
[2023-09-19] MEDS: dexAMETHasone 4 MG/ML VIAL IV ONE (17:12)
[2023-09-19] MEDS: levETIRAcetam 500 MG in NA CHLORIDE 0.9% 100 ML IV SCH (18:00)
[2023-09-19] MEDS: clonazePAM 1 MG TAB PO SCH (20:25)
[2023-09-20] MEDS: DIPHENHYDRAMINE 25 MG TAB/CAP PO ONE (04:15)
[2023-09-20] MEDS: ONDANSETRON 4 MG/2 ML VIAL IV ONE (04:35)
[2023-09-20] MEDS: dexAMETHasone 4 MG/ML VIAL IV ONE (12:06)
[2023-09-20] MEDS: clonazePAM 0.5 MG TAB PO PRN (14:49)
[2023-09-21] MEDS: LORazepam 2 MG/ML VIAL ONE (05:51)
[2023-09-21] MEDS: LORazepam 2 MG/ML VIAL IV ONE (05:52)
[2023-09-21] MEDS ORDERED: LORazepam 2 MG/ML VIAL IV PRN (05:55)
--- NOTE | 2023-09-21 07:23 | P.DS ---
Admission Date: 09/20/23 Discharge Date: 09/22/23 Disposition: DC HOME/HOME HEALTH CARE Discharge Condition: GOOD Reason for Admission: Recent fall Brief History of Present Illness: 53 years of age with a history of COPD apparently she was trying to get out from a wheelchair her did not lock and she fell on her back she now complains of pain in her right leg and in the buttock area. She denies any loss of consciousness she is fallen before currently patient is nonambulatory due to back surgery history of COPD a current smoker - Physical Exam General: Alert, awake HEENT: Atraumatic Neck: Supple Respiratory: Equal unlabored Cardiovascular: No edema, Regular rate/rhythm, Normal S1 S2 Gastrointestinal: Normal bowel sounds, Soft and benign Musculoskeletal: No warmth, Integumentary: No breakdown, No significant lesion Hospital Course: 53year-old female patient with a past medical history of COPD, tobacco use, chronic pain, presented with shortness of breath. COPD exacerbation, pseudoseizures, fall. Was noted to have COPD exacerbation, generalized weakness. She was evaluated by pulmonology treated with nebulizers, Solu-Medrol, oxygen, Keppra for seizures, as needed analgesics for chronic pain placed on fall precautions. Condition improved with treatment plan. CT does not show any fractures. Patient tolerating diet, stable for discharge to home with follow-up appointment with primary care physician, follow-up with pulmonary, neurology after discharge. PROBLEM: COPD exacerbation Chronic pain Generalized weakness Pseudoseizures Anxiety Tobacco use Fall CT of the spine chest abdomen pelvis negative for acute fracture Prescriptions Atrovent nebulizer Hydrocodone for pain Prednisone 20 mg p.o. twice daily Klonopin 0.5 every 8 hours for anxiety Brovana inhaler Educated on recommended recommendation of tobacco Continue home medicines as previously prescribed Follow-up with pulmonary after discharge Follow-up with neurology for pseudoseizures GOAL: Clear understanding of disease process INSTRUCTIONS: Physician Discharge Instructions: -Follow-up with PCP in 1 to 2 weeks -Please call Dr. Fry at [phone] if any questions regarding hospital stay -Please call nursing station at [phone] if any nursing or medication questions -Return to the emergency room if symptoms worsen Diet: ADA, low sodium Activity: Fall precautions DC home with home health care to be set up by primary care Dr. Mcknight's office Vital Signs/Physical Exam: Temp Pulse Resp BP Pulse Ox 97.3 F 93 H 18 104/79 98 09/21/23 00:00 09/21/23 00:00 09/21/23 03:48 09/21/23 00:00 09/21/23 03:48 Laboratory Data at Discharge: WBC 4.80 thou/uL (4.3-10.9) 09/19/23 07:56 Hgb 10.3 g/dL (12.0-15.0) L 09/19/23 07:56 Hct 32.0 % (36.0-45.0) L 09/19/23 07:56 Plt Count 451 thou/uL (152-406) H 09/19/23 07:56 PT 11.9 SECONDS (9.5-12.5) 09/18/23 21:06 INR 1.08 09/18/23 21:06 APTT 30.5 SECONDS (24.3-36.9) 09/18/23 21:06 Sodium 137 mEq/L (136-145) 09/19/23 07:56 Potassium 4.4 mEq/L (3.5-5.1) D 09/19/23 07:56 BUN 7 mg/dL (7-18) 09/19/23 07:56 Creatinine 0.68 mg/dL (0.55-1.02) 09/19/23 07:56 Glucose 119 mg/dL (74-106) H 09/19/23 07:56 Phosphorus 5.1 mg/dL (2.5-4.9) H 09/19/23 07:56 Magnesium 2.2 mg/dL (1.6-2.4) 09/19/23 07:56 Total Bilirubin 0.4 mg/dL (0.2-1.0) 09/19/23 07:56 AST 18 U/L (15-37) 09/19/23 07:56 ALT 30 U/L (13-56) 09/19/23 07:56 Alkaline Phosphatase 121 U/L (45-117) H 09/19/23 07:56 Home Medications: Divalproex Sodium [Depakote] 250 mg PO BID 01/15/23 Fluticasone/Umeclidin/Vilanter [Trelegy Ellipta 100-62.5-25] 1 each IH DAILY 30 Days #30 aero 05/04/23 Aspirin [Roxanne Chewable Aspirin] 81 mg PO DAILY #30 tab.chew 05/05/23 Furosemide [Lasix*] 40 mg PO DAILY tab 05/19/23 Metoprolol Tartrate [Lopressor*] 25 mg PO BID 6AM 6PM tab 05/19/23 Nitroglycerin [Nitrostat*] 0.4 mg SL UD PRN tab 05/19/23 Codeine/APAP [Tylenol #3*] 1 tab PO Q6HP PRN 09/19/23 Arformoterol Tartrate [Brovana] 15 mcg NEB BIDRESP #60 vial.neb 09/22/23 Hydrocodone 5/APAP 325 [[place] 5/325*] 1 tab PO Q6HP PRN #30 tab 09/22/23 Ipratropium Neb [Atrovent*] 0.5 mg NEB [id number] #60 amp 09/22/23 clonazePAM [Klonopin] 0.5 mg PO Q8HP #40 tab 09/22/23 predniSONE [Prednisone*] 20 mg PO BIDPC #20 tab 09/22/23 New Medications: Ipratropium Neb [Atrovent*] 0.5 mg NEB [id number] #60 amp Arformoterol Tartrate [Brovana] 15 mcg NEB BIDRESP #60 vial.neb clonazePAM [Klonopin] 0.5 mg PO Q8HP #40 tab Hydrocodone 5/APAP 325 [[place] 5/325*] 1 tab PO Q6HP PRN #30 tab PRN Reason: Pain Scale 5-7 (Moderate) predniSONE [Prednisone*] 20 mg PO BIDPC #20 tab Physician Discharge Instructions: PROBLEM: Fall COPD Chronic pain Morbid obesity Continue home medicines as previously prescribed GOAL: Clear understanding of disease process INSTRUCTIONS: Physician Discharge Instructions: -Follow-up with PCP in 1 to 2 weeks -Please call Dr. Fry at [phone] if any questions regarding hospital stay -Please call nursing station at [phone] if any nursing or medication questions -Return to the emergency room if symptoms worsen Diet: ADA, low sodium Activity: Fall precautions DME: Date Ordered: Name of Company: patient has own Cynthia Garcia has just setup home health with [facility] in [facility]. Followup: Pedro Elizabeth DO [Primary Care Provider] - Time spent managing pt's care (in minutes): 55
[2023-09-21] MEDS: ONDANSETRON 4 MG/2 ML VIAL IV ONE (07:56)
--- NOTE | 2023-09-21 10:30 | P.PN ---
Subjective Date of Service: 09/21/23 Chief Complaint: Recent fall moderate generalized weakness, pseudoseizure this a.m., rapid response called patient assisted back to bed, - Physical Exam General: Alert, Moderate distress HEENT: Atraumatic Neck: Supple Respiratory: Expiratory wheezes, Rhonchi Cardiovascular: No edema, Regular rate/rhythm, Normal S1 S2 Gastrointestinal: Normal bowel sounds, Soft and benign Musculoskeletal: No warmth, Other (Patient have discomfort movement on the right leg and on her buttock area) Integumentary: No breakdown, No significant lesion Review of Systems per HPI Physical Examination - Vital Signs Temperature: 97.6 F Blood Pressure: 137/87 Pulse: 101 Respirations: 20 Pulse Ox (%): 95 Assessment And Plan - Plan Assessment/plan Acute hypoxic respiratory failure secondary COPD exacerbation acute O2 dependent Active tobacco use O2 to 2 L keep sats greater than 92%, steroids, resume home inhalers, nebulizers, Hypokalemia acute Trend electrolytes replace as needed Microcytic anemia chronic Trend H&H Pseudoseizures, IV Keppra, as needed Ativan, Klonopin at bedtime fall acute frequeny falls acute Chronic pain acute Low back pain Wheelchair dependent Sciatica Fall precaution, as needed analgesic Patient is 53 years of age recently fell apparently tried to get out of her wheelchair and hurt her back and the leg. She has had falls before if patient is unable to ambulate due to problems with the back she has had surgery before the history of COPD active smoker patient has active wheezing and rhonchi will add bronchodilators steroids pain relief labs chemistries reviewed mildly anemic CT scan of the entire body does not show any fractures. Plan to admit pain relief possible discharge in 24 hours Full code Diet cardiac DVT SCDs Disposition Home with home health Cynthia Garcia has just setup home health with [facility] in [facility]. Discharge Plan: Home - Code Status/Comfort Care Code Status: Full Code Critical Care: No Time Spent Managing PTS Care (In Minutes): 35
[2023-09-21] MEDS: dexAMETHasone 4 MG/ML VIAL IV ONE (11:10)
[2023-09-21] MEDS: HYDROMORPHONE HCL 0.5 MG/0.5 ML INJ IV PRN (13:01)
--- NOTE | 2023-09-21 23:03 | CON ---
Reason For Consultation: Consultation called because of possible seizures. History Of Present Illness: Ms. Coon is a 53-year-old right-handed patient with reported history of seizures and pseudoseizures in addition to bipolar disorder, cervical cancer, chronic obs tructive pulmonary disease, congestive heart failure, depression, diverticulitis, who reportedly fell while bending to sit in a chair on 09/19/2023. She reportedly hit the back of her head and lower ba ck, and per the patient and her , had 4 seizures around 1 or 2 minutes each. She said the sei zures were triggered by back pain. She was previously seen in my clinic and has [facility] over a year and a half. She was prescribed Depakote for both mood control and possibility of epileptic seizures, but was not taking the medication. She said she uses marijuana to control her s eizures and that seizures may be caused again by stress or pain. Her head, cervical spine, abdomen, and pelvis CT scan which was done as a trauma series showed no acute intracranial abnormalities. Cer vical fracture not visualized. The internal organs show no evidence of any trauma. However, a media stinal hematoma was not seen and essentially no significant abnormalities identified in the chest, ab domen, pelvis, and brain CT scan. Laboratory studies showed normal white blood cell count with mild anemia, hemoglobin 10.3. INR 1.08. Basic metabolic panel essentially showed a slightly low potassiu m of 3.4, and was otherwise normal with normal liver function studies and her toxicology screen did s how valproic acid level of less than 3. The patient did receive Depakote after 500 mg dose of Keppra . In addition, she had Ativan given along with Dilaudid. She is now on Depakote 250 mg twice daily, aspirin 81 mg daily, metoprolol 25 mg twice daily, and prednisone 20 mg twice daily. She has no fur ther seizure-like activity in the last 12 to 24 hours. Past Medical History: As noted. There is myocardial infarction, spastic muscle, stroke, hypertensio n. Allergies: FLUOXETINE, GREEN TEA. Past Surgical History: Back surgery, lower back, cervical fusion, cholecystectomy, tonsillectomy, diggs rgery on her foot. Family History: Noncontributory. Social History: The patient smokes marijuana regularly and a pack of cigarettes daily. Review of Systems: She denies recent fevers, chills, nausea, vomiting, myalgias, arthralgias, and change in weight. Verma s have lumbar and cervical back pain and reports history of seizures. Otherwise, negative on systems review. Physical Examination: Vital Signs: Blood pressure 121/81, pulse 86, respiratory rate 16, temperature 97.7, oxygen saturati on 97%. Weight 187 pounds, height 5 feet 3 inches, BMI 33.2. General: Ms. Coon is sitting in bed. She is in no acute distress. HEENT: She appears normocephalic, atraumatic. Sclerae anicteric. Oropharynx pink and moist. Neck: Supple. Chest: Clear. Heart: Regular. Extremities: No significant clubbing, cyanosis, or edema. Neurologic: Alert, oriented to situation, place, person. Follows commands appropriately. She has d iffuse weakness in lower extremity and upper extremity, but no focal weakness. There is sensory loss and light loss in a stocking glove fashion. Otherwise, upper extremity coordination intact. She wa s evaluated by Physical Therapy and she was known to be somewhat stronger in the lower extremity and moving apparently better than she did a week previously. She did have the ability to support herself standing, but then the knees did buckle after a short while. She did not ambulate. She has been mo bilizing mostly by a wheelchair. Assessment: Ms. Coon is a 53-year-old patient with possible seizures and pseudoseizures and multip le medical problems as noted. There is no EEG available in the hospital at this point. It is theref ore difficult to determine if the patient actually had seizures as might be shown by epileptiform dis charges, however, she is on Depakote, which may be helpful for bipolar disorder in addition to rate c ontrol and seizure control. Plan: 1.Continue Depakote, but increase to 500 mg twice daily. 2.After discharge, followup with Dr. Ireland's clinic for routine electroencephalogram. 3.Maintain a diary of possible seizures or any seizure-like activity. 4.Continue all medications as noted including for her comorbid conditions and she may be discharged home. DENNIS/JOSELYN Voice ID: [id number] Report ID: [id number]
[2023-09-22 09:58] VITALS: O2SAT 98
[2023-09-22 11:16] VITALS: BP 137/87; TEMP 97.6
--- NOTE | 2023-09-22 17:17 | EKG ---
Test Date: 2023-09-18 Test Time: 21:37:10 Water Quality Manager: GUY MEASUREMENT RESULTS: Intervals: Rate: 110 MS: 140 QRSD: 86 QT: 352 QTc: 476 Holden: P: 69 MS: 140 QRS: 98 T: 59 INTERPRETIVE STATEMENTS: Sinus tachycardia Biatrial enlargement Abnormal ECG Compared to ECG 08/31/2023 19:36:11 T-wave abnormality no longer present Electronically Signed On 09-22-23 17:06:24 HYDRO STATION SUPERVISOR by Saad Leavitt
== END 2023-09-22 09:43 | disposition home health service (06) | DRG 100 ==
LOC: ER 20:23 → 2ND 09-19 01:25 → OBSVTOIN 09-20 13:07
PROVIDERS: ADMIT Internal Medicine Sleep Medicine; ATTEND Hospitalist
DX: R56.9 Unspecified convulsions (principal); J96.01 Acute respiratory failure with hypoxia; J44.1 Chronic obstructive pulmonary disease with (acute) exacerbation; M54.30 Sciatica, unspecified side; G89.29 Other chronic pain; I10 Essential (primary) hypertension; E87.6 Hypokalemia; F41.9 Anxiety disorder, unspecified; D50.9 Iron deficiency anemia, unspecified; F31.9 Bipolar disorder, unspecified; E66.01 Morbid (severe) obesity due to excess calories; I25.2 Old myocardial infarction; F17.210 Nicotine dependence, cigarettes, uncomplicated; R29.6 Repeated falls; Z99.3 Dependence on wheelchair; Z88.8 Allergy status to other drugs, medicaments and biological substances; Z91.81 History of falling; Z85.41 Personal history of malignant neoplasm of cervix uteri; Z68.38 Body mass index [BMI] 38.0-38.9, adult; Z79.82 Long term (current) use of aspirin; Z79.52 Long term (current) use of systemic steroids; Z90.49 Acquired absence of other specified parts of digestive tract; Z91.018 Allergy to other foods; Z79.899 Other long term (current) drug therapy; W05.0XXA Fall from non-moving wheelchair, initial encounter; Y92.019 Unspecified place in single-family (private) house as the place of occurrence of the external cause; Y93.89 Activity, other specified; Y99.9 Unspecified external cause status
CPT/HCPCS: 36415; 51702; 70450; 71250; 72125; 80048; 80053; 80076; 80164; 82947; 83735; 84100; 85025; 85610; 85730; 93005; 94640; 96365; 96375; 97110; 97161; 97530; 99285; G0378; J1100; J1170; J1953; J2405; J2765; J3360; J7512; J7605; J7644

== ENCOUNTER → 2023-09-23 | Emergency (ER) | payer OTHER ==
[~2023-09-23] MED LIST changes: -FUROSEMIDE 40 MG/4 ML VIAL ONE; +HYDROMORPHONE HCL 1 MG/ML INJ ONE; -LORazepam 2 MG/ML VIAL ONE; -MORPHINE 4 MG/ML SYR ONE; +PROMETHAZINE INJ 25 MG/ML AMP ONE
--- OUTSIDE RECORDS SUMMARY | 2023-09-23 10:22 | XMS REPORT | Continuity of Care Document ---
Author Name Unknown Address [address] [place] [address] [facility] Address [address] [facility] [address] [place] [address] Care Team Providers Care Conduit Installer Name Role Phone Aneta Silva Primary Care Physician PANKAJ OBREGON Attending Clinician Un available AYDEE GO Attending Clinician Unavailable CARA BURGESS Attending Clinician UnavailADAM Moreno Attending Clinician Unavailable THOMAS LOZOYA Attending Clinician Nina MARIAH Quiroga Attending Clinician Unavailable MYLA MIJARES Attending Clinician Unavailable GUSTAVO DELANEY Attending Clinician Unavailable PROVIDER, CAMPAIGNS Attending Clinician UnavailSHY Mccullough Attending Clinician Unavailable YONATAN LORENZO Attending Clinician Unava ilSELIN Arreola Attending Clinician Unavailable Nir ELIZONDO, [place] Dixon Attending Clinician Nina lisa Obregon MD, Pankaj Bernal Attending Clinician Selin Fry DO Attending Clinician [phone] Bud ELIZONDO, Selin Attending Clinician [phone] JUANY GREEN Attending Clinician Unavailable DEMETRIUS TOBAR Attending Clinician Unavailab KETAN Armenta Attending Clinician Unavail able Kael BELTRAN, Ketan Sanders Attending Clinician [phone] BRIAN BRYAN Attending Clinician Unavailable Singer KRAFT, Brian Attending Clinician [phone] Jenifer ELIZONDO, Cara Hamilton Attending Clinician [phone] Aydee Go MD Attending Clinician [phone], Provider Not In Attending Clinician Unav Dallas Allen Attending Clinician Unavaila yaya Garcia MD, Adam Joshi Attending Clinician [phone] Mercedez ELIZONDO, Harry Attending Clinician [phone] Rocael ELIZONDO, Antwon Mccrary Attending Clinician + [phone] Yue Bui MD Attending Clinician [phone] Connie Davey MD Attending Clinician + [phone] Mariah Aldridge MD Attending Clinician + [phone] Devora ELIZONDO, Thomas Hopkins Attending Clinician CONNIE DAVEY Attending Clinician UnavailAlfonso Oh Attending Clinician Unavailable Alfonso Lopez Attending Clinician [phone] RITCHIE WARREN Attending Clinician Unavailable Ritchie Warren MD Attending Clinician [phone] Shy Beckman RN Attending Clinician [phone] ROXI, PARRISH CR Attending Clinician Unavaila yaya Mendoza MD, Halima Hummel Attending Clinician [phone] Lucho ELIZONDO, Jen Olivia Attending Clinician [phone] Roxi ELIZONDO, Parrish Reyez Attending Clinici an LORENZA LOWRY Attending Clinician Unavailable Sav Rondon MD Attending Clinician [phone] Lorenza Lowry MD Attending Clinician [phone] Corey DUMONT, Maria Teresa Attending Clinician + [phone] CHANTEL BOJORQUEZ Attending Clinician CHANTEL Kelly Attending Clinician Jack Ibrahim MD, Brandyn Otoole Attending Clinician [phone] SELINA MARTINES Attending Clinician Unavailable Sapna Vargas DO Attending Clinician [phone] Tyrel ELIZONDO, Glory Katz Attending Clinician + Selina Martines MD Attending Clinician [phone] Vaccine, [place] Pedi Attending Clinician U Jose Titus MD Attending Clinician [phone] JOSE PAK Attending Clinician Unavailable NICHELLE VIRK Attending Clinician Unavaila Nichelle Lakhani Attending Clinician [phone] Doctor Unassigned, Hector Attending Clinician U chelsi Nava RN, Miky Attending Clinician Unavailab Fabrice Jarrett Attending Clinician [phone] Lydia Eaton Attending Clinician [phone] Unknown, Attending Attending Clinician Unavailab monroe UNKNOWN, ATTENDING Attending Clinician Unavailab Anali Berg Attending Clinician [phone] Yehuda Arcos MD Attending Clinician [phone] PANKAJ OBREGON Admitting Clinician Un available CARA BURGESS Admitting Clinician Unavailab ADAM Cabrera Admitting Clinician Unavailable MARIAH ALDRIDGE Admitting Clinician Unavailable CONNIE DAVEY Admitting Clinician UnavailAlfonso Oh Admitting Clinician Unavailable RITCHIE WARREN Admitting Clinician Unavailable JEN GELLER Admitting Clinician Unavaila LORENZA Mariscal Admitting Clinician Unavailable Lorenza Lowry MD Admitting Clinician [phone] BRANDYN IBRAHIM Admitting Clinician Unavailable Brandyn Ibrahim MD Admitting Clinician [phone] GLORY ESTEVES Admitting Clinician Unav ailable NICHELLE VIRK Admitting Clinician Unavaila ble Payers Payer Name Policy Type Policy Number Effective Date Expirati on Date Source FOR[facility] [id number] 2023 00:00:00 AMBETTER WILLIAMS [id number] 2023 00:00:00 [facility] SESAR OVIEDO COPAY FOCUS 9 [id number] 2023 00:00:00 [facility] [id number] 2023 00:00:00 MEDICAID PENDING PENDING 2022 00:00:00 Problems Condition Name Condition Details Condition Category Status Onset Date Resolution Date Last Treatment Date Treating Clinician Comments Source Congestive heart failure (multi HCC) Congestive heart failure (multi HCC) Disease Active 09-11 00:00: 00 Cynthia Santoyo Externa lisa Bipolar disorder (multi HCC) Bipolar disorder (multi HCC) Disease Active 09-11 00:00: 00 Cynthia Garcia - Externa lisa Seizure disorder (multi HCC) Seizure disorder (multi HCC) Disease Active 09-11 00:00: 00 Cynthia Santoyo Externa lisa Prediabete s Prediabete s Disease Active 09-11 00:00: 00 Cynthia Santoyo Externa l Bilateral leg weakness Bilateral leg weakness Disease Active 2022-07 00:00: 00 [facility] Pneumonia Pneumonia Disease Active 2022-07 00:00: 00 [facility] Cavitary lesion of lung Cavitary lesion of lung Disease Active 2022-07 00:00: 00 [facility] Cervical myelopathy Cervical myelopathy Disease Recurre nce 2022-07 00:00: 00 [facility] Cervical disc disorder Cervical disc disorder Disease Active 2022-07 00:00: 00 [facility] Cord compressio n Cord compressio n Disease Recurre nce - 00:00: 00 [facility] Cauda equina compressio n Cauda equina compressio n Disease Active 03-30 00:00: 00 [facility] Seizure Seizure Disease Recurre ale 14 00:00: 00 [facility] Cardiomyop athy Cardiomyop athy Disease Active 08-01 00:00: 00 [facility] NSVT (nonsustai keisha ventricula r tachycardi a) NSVT (nonsustai keisha ventricula r tachycardi a) Disease Active 08-01 00:00: 00 [facility] Chest pain, unspecifie d type Chest pain, unspecifie d type Disease Active 07-31 00:00: 00 [facility] Elevated brain natriureti c peptide (BNP) level Elevated brain natriureti c peptide (BNP) level Disease Active 07-31 00:00: 00 [facility] Coronary artery disease involving kotlik coronary artery 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 Coronary artery disease involving kotlik coronary artery 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 Disease Active 07-31 00:00: 00 [facility] Snores Snores Disease Active 07-31 00:00: 00 [facility] Cigarette smoker Cigarette smoker Disease Active 07-31 00:00: 00 [facility] Primary hypertensi on Primary hypertensi on Disease Active 07-31 00:00: 00 [facility] Other hyperlipid emia Other hyperlipid emia Disease Active 07-31 00:00: 00 [facility] Coronary artery disease involving kotlik coronary artery 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 Coronary artery disease involving kotlik coronary artery 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 Disease Active 1-12 00:00: 00 [facility] Chronic bilateral low back pain with bilateral sciatica Chronic bilateral low back pain with bilateral sciatica Disease Active 2021-07 0-17 00:00: 00 [facility] 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 Disease Active 04-15 00:00: 00 [facility] Neuroforam inal stenosis of cervical spine Neuroforam inal stenosis of cervical spine Disease Active 04-15 00:00: 00 [facility] Stroke-lik e symptoms Stroke-lik e symptoms Disease Active 04-13 00:00: 00 [facility] Bipolar disorder, in partial remission, most recent episode manic Bipolar disorder, in partial remission, most recent episode manic Disease Active 09-27 00:00: 00 [facility] Neuroforam inal stenosis of lumbar spine Neuroforam inal stenosis of lumbar spine Disease Active 09-27 00:00: 00 [facility] Bilateral acute otitis media, recurrence not specified, unspecifie d otitis media type Bilateral acute otitis media, recurrence not specified, unspecifie d otitis media type Disease Active 09-27 00:00: 00 [facility] Lumbar spinal stenosis Lumbar spinal stenosis Disease Active 09-27 00:00: 00 [facility] Right-side d low back pain with sciatica, sciatica laterality unspecifie d Right-side d low back pain with sciatica, sciatica laterality unspecifie d Disease Active 09-27 00:00: 00 [facility] Generalize d anxiety disorder Generalize d anxiety disorder Disease Active 09-27 00:00: 00 [facility] Agoraphobi a Agoraphobi a Disease Active 09-27 00:00: 00 [facility] Bipolar disorder, in partial remission, most recent episode manic Bipolar disorder, in partial remission, most recent episode manic Disease Active 09-27 00:00: 00 [facility] Obsessive compulsive disorder Obsessive compulsive disorder Disease Active 09-27 00:00: 00 [facility] Breast mass, left Breast mass, left Disease Active 09-17 00:00: 00 [facility] Anxiety Anxiety Disease Active 09-17 00:00: 00 [facility] Lower back pain Lower back pain Disease Active 09-17 00:00: 00 [facility] High blood pressure High blood pressure Disease Active 09-17 00:00: 00 [facility] COPD (chronic obstructiv e pulmonary disease) COPD (chronic obstructiv e pulmonary disease) Disease Active 09-17 00:00: 00 [facility] Obesity Obesity Disease Active 09-17 00:00: 00 [facility] Allergies, Adverse Reactions, Alerts Allergy Name Allergy Type Status Severity Reaction(s) Onset Date Inactive Date Treating Clinician Comments Source FLUOXETI NE Allergy Active 03-29 00:00: 00 [facility] GREEN TEA Allergy Active High Other 03-29 00:00: 00 [facility] LEVETIRA CETAM Allergy Active High N\\T\\V 03-29 00:00: 00 [facility] Fluoxeti ne Propensi ty to adverse reaction s Active 03-29 00:00: 00 [facility] Green Tea Propensi ty to adverse reaction s Active - 00:00: 00 Seizure like activity [facility] Levetira cetam Propensi ty to adverse reaction s Active Nausea And Vomiting - 00:00: 00 Intensifi es seizure [facility] Green Tea Drug Allergy Active Other (See Comments) 03-29 00:00: 00 Seizure like activity [facility] Levetira cetam Drug Allergy Active Nausea And Vomiting 03-29 00:00: 00 Intensifi es seizure [facility] Levetira cetam Propensi ty to adverse reaction s Active Other 00:00: 00 Intensifi es seizure Makes seizures worse Makes seizures worse Intensifi es seizure Cynthia Garcia - Externa l LEVETIRA CETAM DRUG INGREDI Active Other-Cmnt 11-17 00:00: 00 [facility] Levetira cetam Propensi ty to adverse reaction s Active Other - See comments 11-17 00:00: 00 Makes seizures worse [facility] FLUOXETI NE Allergy Active Med Rash 08-02 00:00: 00 [facility] Green Tea Propensi ty to adverse reaction s Active 08-02 00:00: 00 [facility] GREEN TEA Allergy Active 08-02 00:00: 00 [facility] Fluoxeti ne Propensi ty to adverse reaction s Active Rash 08-02 00:00: 00 Cynthia Bedoyaold - Externa l Fluoxeti ne Propensi ty to adverse reaction s Active Unknown - See comments 03-25 00:00: 00 [facility] FLUOXETI NE DRUG INGREDI Active Unknown-Cmnt 03-25 00:00: 00 [facility] Diclofen ac Propensi ty to adverse reaction s Active Anxiety 11-20 00:00: 00 Cynthia Garcia - Externa l DICLOFEN AC DRUG INGREDI Active HYPERTENSION 11-20 00:00: 00 [facility] Green Tea Propensi ty to adverse reaction s Active Anxiety 08-10 00:00: 00 Seizure like activity Seizures Seizures Seizure like activity Cynthia Garcia - Externa l GREEN TEA DRUG INGREDI Active Med Other-Cmnt 08-10 00:00: 00 [facility] Green Tea Propensi ty to adverse reaction s to drug Active Other - See comments 08-10 00:00: 00 Seizures [facility] FLUOXETI NE HCL DRUG INGREDI Active Hives 03-19 00:00: 00 [facility] Fluoxeti ne Hcl Propensi ty to adverse reaction s Active Hives 03-19 00:00: 00 [facility] Family History Family Member Diagnosis Comments Start Date Stop Date Sourc e Natural mother Alcohol abuse [place] [facility] Natural mother Cancer [facility] Natural mother Diabetes [facility] Natural mother Heart disease C [facility] Natural mother Hyperlipidemia [facility] Natural mother Kidney disease [facility] Natural mother [facility] Natural mother Alcohol abuse [facility] Natural mother Stroke [facility] Paternal uncle Diabetes [facility] Social History Social Habit Start Date Stop Date Quantity Comments Source History SDOH Social Connections Get Together [facility] History SDOH Social Connections Rastafarian [facility] History SDOH Social Connections Membership [facility] History SDOH Social Connections Meetings [facility] History SDOH Alcohol Frequency [facility] History SDOH Alcohol Std Drinks [facility] History SDOH Alcohol Binge [facility] History SDOH Housing Homeless Last Year [facility] Sexual orientation Alfonso Garcia - External Tobacco use and exposure 2023-09-11 00:00:00 2023-09-11 00:00:00 Smokeless tobacco non-user Cynthia Garcia - External History of Social function 2023-09-11 00:00:00 2023-09-11 00:00:00 Cynthia Garcia - External Alcohol intake 2023-06-02 00:00:00 2023-06-02 00:00:00 .57 /d [facility] Exposure to SARS-CoV-2 (event) 2023-05-18 00:00:00 2023-05-28 07:28:00 Not sure [facility] Cigarettes smoked current (pack per day) - Reported 2023-05-26 00:00:00 2023-05-26 00:00:00 [facility] Cigarette pack-years 2023-05-26 00:00:00 2023-05-26 00:00:00 [facility] History SDOH Housing Unable to Pay - In the last 12 months, was there a time when you were not able to pay the mortgage or rent on time? 2023-05-26 00:00:00 2023-05-26 00:00:00 Yes [facility] History of tobacco use 1987-05-22 00:00:00 2023-05-22 00:00:00 Cigarette Smoker [facility] History SDOH Housing Places Lived 2023-03-30 00:00:00 2023-03-30 00:00:00 1 [facility] Alcohol Comment 2023-03-29 00:00:00 2023-03-29 00:00:00 2x a week [facility] History SDOH Social Connections Phone 2022-08-01 00:00:00 2022-08-01 00:00:00 5 [facility] History SDOH Social Connections Living 2022-08-01 00:00:00 2022-08-01 00:00:00 5 [facility] History SDOH Physical Activity DPW 2022-08-01 00:00:00 2022-08-01 00:00:00 0 [facility] History SDOH Physical Activity MPS 2022-08-01 00:00:00 2022-08-01 00:00:00 0 [facility] History SDOH Financial 2022-08-01 00:00:00 2022-08-01 00:00:00 3 [facility] History SDOH Food Worry 2022-08-01 00:00:00 2022-08-01 00:00:00 1 [facility] History SDOH Food Scarcity 2022-08-01 00:00:00 2022-08-01 00:00:00 1 [facility] History SDOH Transport Med 2022-08-01 00:00:00 2022-08-01 00:00:00 2 [facility] History SDOH Transport Non-Med 2022-08-01 00:00:00 2022-08-01 00:00:00 2 [facility] Education - What is the highest level of school you have completed or the highest degree you have received? 2022-07-31 00:00:00 2022-07-31 00:00:00 GED or equivalent [facility] Sex Assigned At 1970 00:00:00 1970 00:00:00 Cynthia Seybold - External Smoking Status Start Date Stop Date Source Never smoked tobacco Cynthia Guillen Ex-smoker 2023-05-26 00:00:00 2023-05-26 00:00:00 [facility] Smokes tobacco daily 2023-03-29 00:00:00 [facility] Medications Ordered Medication Name Filled Medication [...] MG oral Tablet 09-11 00:00: 00 Yes [id number] 1{tbl} Q.25D Take 1 tablet by mouth every 6 hours as needed for pain. Cynthia gonzalez Mirtazapine 15 MG oral Tablet 09-11 00:00: 00 Yes [id number] 15mg QD Take 1 tablet (15 mg total) by mouth nightly as needed. Cynthia gonzalez DULoxetine (CYMBALTA) 60 MG capsule 09-09 00:00: 00 10-08 23:59 :00 Yes 60mg QD Take 1 capsule (60 mg total) by mouth daily for 30 days. [facility] DULoxetine (CYMBALTA) 60 MG capsule 09-09 00:00: 00 10-08 23:59 :00 Yes 60mg QD Take 1 capsule (60 mg total) by mouth daily for 30 days. [facility] DULoxetine (CYMBALTA) 60 MG capsule 09-09 00:00: 00 10-08 23:59 :00 Yes 60mg QD Take 1 capsule (60 mg total) by mouth daily for 30 days. [facility] varenicline (CHANTIX) 1 mg tablet 09-08 10:51: 03 Yes 1mg Q.5D Take 1 tablet (1 mg total) by mouth 2 (two) times daily Give with meals and with a full glass of water.. [facility] atorvastati n (LIPITOR) 20 MG tablet 09-08 10:51: 03 Yes 20mg QD Take 1 tablet (20 mg total) by mouth daily. [facility] varenicline (CHANTIX) 1 mg tablet 09-08 10:51: 03 Yes 1mg Q.5D Take 1 tablet (1 mg total) by mouth 2 (two) times daily Give with meals and with a full glass of water.. [facility] atorvastati n (LIPITOR) 20 MG tablet 09-08 10:51: 03 Yes 20mg QD Take 1 tablet (20 mg total) by mouth daily. [facility] varenicline (CHANTIX) 1 mg tablet 09-08 10:51: 03 Yes 1mg Q.5D Take 1 tablet (1 mg total) by mouth 2 (two) times daily Give with meals and with a full glass of water.. [facility] atorvastati n (LIPITOR) 20 MG tablet 09-08 10:51: 03 Yes 20mg QD Take 1 tablet (20 mg total) by mouth daily. [facility] Cyanocobala min (Vitamin B-12) 1000 MCG oral Tablet 09-08 00:00: 00 10-08 04:59 :00 Yes 1000ug Take 1 tablet (1,000 mcg total) by mouth daily. Cynthia gonzalez lidocaine (LIDODERM) 4 % patch - 00:00: 00 10-07 23:59 :00 Yes 3{patch } Q24H Place 3 patches onto the skin daily for 30 days. [facility] cyanocobala min (VITAMIN B-12) 1000 MCG tablet 09-08 00:00: 00 10-07 23:59 :00 Yes 1000ug QD Take 1 tablet (1,000 mcg total) by mouth daily for 30 days. [facility] lidocaine (LIDODERM) 4 % patch 09-08 00:00: 00 10-07 23:59 :00 Yes 3{patch } Q24H Place 3 patches onto the skin daily for 30 days. [facility] cyanocobala min (VITAMIN B-12) 1000 MCG tablet 09-08 00:00: 00 10-07 23:59 :00 Yes 1000ug QD Take 1 tablet (1,000 mcg total) by mouth daily for 30 days. [facility] lidocaine (LIDODERM) 4 % patch 09-08 00:00: 00 10-07 23:59 :00 Yes 3{patch } Q24H Place 3 patches onto the skin daily for 30 days. [facility] cyanocobala min (VITAMIN B-12) 1000 MCG tablet 09-08 00:00: 00 10-07 23:59 :00 Yes 1000ug QD Take 1 tablet (1,000 mcg total) by mouth daily for 30 days. [facility] metoprolol succinate (TOPROL-XL) 25 MG 24 hr tablet 09-07 16:47: 05 09-07 00:00 :00 No 25mg QD Take 1 tablet (25 mg total) by mouth daily. [facility] albuterol HFA (VENTOLIN HFA) 90 mcg/actuati on inhaler 09-07 16:47: 05 09-07 00:00 :00 No 1{puff} Inhale 1 puff by mouth via inhaler every 6 (six) hours as needed for Wheezing. [facility] fluticasone -umeclidin- vilanter (Trelegy Ellipta) 200-62.5-25 mcg DsDv 09-07 16:47: 05 09-07 00:00 :00 No QD Inhale by mouth via inhaler daily. [facility] metoprolol succinate (TOPROL-XL) 25 MG 24 hr tablet 09-07 16:47: 05 09-07 00:00 :00 No 25mg QD Take 1 tablet (25 mg total) by mouth daily. [facility] albuterol HFA (VENTOLIN HFA) 90 mcg/actuati on inhaler 09-07 16:47: 05 09-07 00:00 :00 No 1{puff} Inhale 1 puff by mouth via inhaler every 6 (six) hours as needed for Wheezing. [facility] fluticasone -umeclidin- vilanter (Trelegy Ellipta) 200-62.5-25 mcg DsDv 09-07 16:47: 05 09-07 00:00 :00 No QD Inhale by mouth via inhaler daily. [facility] metoprolol succinate (TOPROL-XL) 25 MG 24 hr tablet 09-07 16:47: 05 09-07 00:00 :00 No 25mg QD Take 1 tablet (25 mg total) by mouth daily. [facility] albuterol HFA (VENTOLIN HFA) 90 mcg/actuati on inhaler 09-07 16:47: 05 09-07 00:00 :00 No 1{puff} Inhale 1 puff by mouth via inhaler every 6 (six) hours as needed for Wheezing. [facility] fluticasone -umeclidin- vilanter (Trelegy Ellipta) 200-62.5-25 mcg DsDv 09-07 16:47: 05 09-07 00:00 :00 No QD Inhale by mouth via inhaler daily. [facility] Albuterol HFA 108 (90 Base) MCG/ACT IN AERS 09-07 00:00: 00 10-07 04:59 :00 Yes 1{puff} Q.25D Inhale 1 puff into the lungs every 6 hours as needed. Cynthia gonzalez Baclofen 5 MG oral Tablet - 00:00: 00 10-07 04:59 :00 Yes 5mg Take 1 tablet (5 mg total) by mouth nightly. Cynthia gonzalez Sennosides- Docusate Sodium 8.6-50 MG oral Tablet - 00:00: 00 10-07 04:59 :00 Yes 2{tbl} Take 2 tablets by mouth 2 times daily. Cynthia gonzalez tamsulosin (FLOMAX) 0.4 mg Cap 24 hr capsule 09-07 00:00: 00 10-06 23:59 :00 Yes .4mg QD Take 1 capsule (0.4 mg total) by mouth daily for 30 days. [facility] senna-docus ate (SENOKOT S) 8.6-50 mg per tablet 09-07 00:00: 00 10-06 23:59 :00 Yes 2{tbl} Q.5D Take 2 tablets by mouth 2 (two) times daily for 30 days. [facility] polyethylen e glycol (GLYCOLAX) 17 gram packet 09-07 00:00: 00 10-06 23:59 :00 Yes 17g Q.5D Take 17 g by mouth 2 (two) times daily for 30 days. [facility] gabapentin (NEURONTIN) 400 MG capsule 09-07 00:00: 00 10-06 23:59 :00 Yes 400mg Q.[id number] 3D Take 1 capsule (400 mg total) by mouth 3 (three) times daily for 30 days. [facility] furosemide (LASIX) 20 MG tablet 09-07 00:00: 00 10-06 23:59 :00 Yes 20mg QD Take 1 tablet (20 mg total) by mouth daily for 30 days. [facility] fluticasone -umeclidin- vilanter (Trelegy Ellipta) 200-62.5-25 mcg DsDv - 00:00: 00 10-06 23:59 :00 Yes 1{inhal ation} QD Inhale 1 Inhalation by mouth via inhaler daily for 30 days. [facility] albuterol HFA (VENTOLIN HFA) 90 mcg/actuati on inhaler 09-07 00:00: 00 10-06 23:59 :00 Yes 1{puff} Inhale 1 puff by mouth via inhaler every 6 (six) hours as needed for Wheezing for up to 30 days. [facility] metoprolol succinate (TOPROL-XL) 25 MG 24 hr tablet 09-07 00:00: 00 10-06 23:59 :00 Yes 25mg QD Take 1 tablet (25 mg total) by mouth daily for 30 days. [facility] baclofen (LIORESAL) 5 mg Tab 09-07 00:00: 00 10-06 23:59 :00 Yes 5mg QD Take 1 tablet (5 mg total) by mouth nightly for 30 days. [facility] tamsulosin (FLOMAX) 0.4 mg Cap 24 hr capsule 09-07 00:00: 00 10-06 23:59 :00 Yes .4mg QD Take 1 capsule (0.4 mg total) by mouth daily for 30 days. [facility] senna-docus ate (SENOKOT S) 8.6-50 mg per tablet 09-07 00:00: 00 10-06 23:59 :00 Yes 2{tbl} Q.5D Take 2 tablets by mouth 2 (two) times daily for 30 days. [facility] polyethylen e glycol (GLYCOLAX) 17 gram packet 09-07 00:00: 00 10-06 23:59 :00 Yes 17g Q.5D Take 17 g by mouth 2 (two) times daily for 30 days. [facility] gabapentin (NEURONTIN) 400 MG capsule - 00:00: 00 10-06 23:59 :00 Yes 400mg Q.[id number] 3D Take 1 capsule (400 mg total) by mouth 3 (three) times daily for 30 days. [facility] furosemide (LASIX) 20 MG tablet 09-07 00:00: 00 10-06 23:59 :00 Yes 20mg QD Take 1 tablet (20 mg total) by mouth daily for 30 days. [facility] fluticasone -umeclidin- vilanter (Trelegy Ellipta) 200-62.5-25 mcg DsDv 09-07 00:00: 00 10-06 23:59 :00 Yes 1{inhal ation} QD Inhale 1 Inhalation by mouth via inhaler daily for 30 days. [facility] albuterol HFA (VENTOLIN HFA) 90 mcg/actuati on inhaler 09-07 00:00: 00 10-06 23:59 :00 Yes 1{puff} Inhale 1 puff by mouth via inhaler every 6 (six) hours as needed for Wheezing for up to 30 days. [facility] metoprolol succinate (TOPROL-XL) 25 MG 24 hr tablet 09-07 00:00: 00 10-06 23:59 :00 Yes 25mg QD Take 1 tablet (25 mg total) by mouth daily for 30 days. [facility] baclofen (LIORESAL) 5 mg Tab 09-07 00:00: 00 10-06 23:59 :00 Yes 5mg QD Take 1 tablet (5 mg total) by mouth nightly for 30 days. [facility] tamsulosin (FLOMAX) 0.4 mg Cap 24 hr capsule 09-07 00:00: 00 10-06 23:59 :00 Yes .4mg QD Take 1 capsule (0.4 mg total) by mouth daily for 30 days. [facility] senna-docus ate (SENOKOT S) 8.6-50 mg per tablet 09-07 00:00: 00 10-06 23:59 :00 Yes 2{tbl} Q.5D Take 2 tablets by mouth 2 (two) times daily for 30 days. [facility] polyethylen e glycol (GLYCOLAX) 17 gram packet 09-07 00:00: 00 10-06 23:59 :00 Yes 17g Q.5D Take 17 g by mouth 2 (two) times daily for 30 days. [facility] gabapentin (NEURONTIN) 400 MG capsule - 00:00: 00 10-06 23:59 :00 Yes 400mg [id number] 3D Take 1 capsule (400 mg total) by mouth 3 (three) times daily for 30 days. [facility] furosemide (LASIX) 20 MG tablet 09-07 00:00: 00 10-06 23:59 :00 Yes 20mg QD Take 1 tablet (20 mg total) by mouth daily for 30 days. [facility] fluticasone -umeclidin- vilanter (Trelegy Ellipta) 200-62.5-25 mcg DsDv 09-07 00:00: 00 10-06 23:59 :00 Yes 1{inhal ation} QD Inhale 1 Inhalation by mouth via inhaler daily for 30 days. [facility] albuterol HFA (VENTOLIN HFA) 90 mcg/actuati on inhaler 09-07 00:00: 00 10-06 23:59 :00 Yes 1{puff} Inhale 1 puff by mouth via inhaler every 6 (six) hours as needed for Wheezing for up to 30 days. [facility] metoprolol succinate (TOPROL-XL) 25 MG 24 hr tablet 09-07 00:00: 00 10-06 23:59 :00 Yes 25mg QD Take 1 tablet (25 mg total) by mouth daily for 30 days. [facility] baclofen (LIORESAL) 5 mg Tab 09-07 00:00: 00 10-06 23:59 :00 Yes 5mg QD Take 1 tablet (5 mg total) by mouth nightly for 30 days. [facility] lacosamide (VIMPAT) 100 mg in NaCl 0.9% (NS) 50 mL piggyback -24 21:15: 00 08-12 21:23 :00 No 100mg 100 mg, IV Piggyback, ONCE, 1 dose, On Thu08/12/23 at 1515, Administer over 30 Minutes, 50 mL
Facu lty member approving Restricted medication : BRIAN BRYAN [facility] Dicyclomine HCl 20 MG oral Tablet 08-06 [...] total) by mouth daily for 5 days. [facility] tamsulosin (FLOMAX) 0.4 mg Cap 24 hr capsule 2022-07 00:00: 00 06-22 23:59 :00 No .4mg QD Take 1 capsule (0.4 mg total) by mouth daily for 5 days. [facility] tamsulosin (FLOMAX) 0.4 mg Cap 24 hr capsule 2022-07 00:00: 00 06-22 23:59 :00 No .4mg QD Take 1 capsule (0.4 mg total) by mouth daily for 5 days. [facility] tamsulosin (FLOMAX) 0.4 mg Cap 24 hr capsule 2022-07 00:00: 00 06-22 23:59 :00 No .4mg QD Take 1 capsule (0.4 mg total) by mouth daily for 5 days. [facility] tamsulosin (FLOMAX) 0.4 mg Cap 24 hr capsule 2022-07 00:00: 00 06-22 23:59 :00 No .4mg QD Take 1 capsule (0.4 mg total) by mouth daily for 5 days. [facility] tamsulosin (FLOMAX) 0.4 mg Cap 24 hr capsule 2022-07 00:00: 00 06-22 23:59 :00 No .4mg QD Take 1 capsule (0.4 mg total) by mouth daily for 5 days. [facility] tamsulosin (FLOMAX) 0.4 mg Cap 24 hr capsule 2022-07 00:00: 00 06-22 23:59 :00 No .4mg QD Take 1 capsule (0.4 mg total) by mouth daily for 5 days. [facility] tamsulosin (FLOMAX) 0.4 mg Cap 24 hr capsule 2022-07 00:00: 00 06-22 23:59 :00 No .4mg QD Take 1 capsule (0.4 mg total) by mouth daily for 5 days. [facility] tamsulosin (FLOMAX) 0.4 mg Cap 24 hr capsule 2022-07 00:00: 00 06-22 23:59 :00 No .4mg QD Take 1 capsule (0.4 mg total) by mouth daily for 5 days. [facility] tamsulosin (FLOMAX) 0.4 mg Cap 24 hr capsule 2022-07 00:00: 00 06-22 23:59 :00 No .4mg QD Take 1 capsule (0.4 mg total) by mouth daily for 5 days. [facility] tamsulosin (FLOMAX) 0.4 mg Cap 24 hr capsule 2022-07 00:00: 00 06-22 23:59 :00 No .4mg QD Take 1 capsule (0.4 mg total) by mouth daily for 5 days. [facility] tamsulosin (FLOMAX) 0.4 mg Cap 24 hr capsule 2022-07 00:00: 00 06-22 23:59 :00 No .4mg QD Take 1 capsule (0.4 mg total) by mouth daily for 5 days. [facility] tamsulosin (FLOMAX) 0.4 mg Cap 24 hr capsule 2022-07 00:00: 00 06-22 23:59 :00 No .4mg QD Take 1 capsule (0.4 mg total) by mouth daily for 5 days. [facility] tamsulosin (FLOMAX) 0.4 mg Cap 24 hr capsule 2022-07 00:00: 00 06-22 23:59 :00 No .4mg QD Take 1 capsule (0.4 mg total) by mouth daily for 5 days. [facility] tamsulosin (FLOMAX) 0.4 mg Cap 24 hr capsule 2022-07 00:00: 00 06-22 23:59 :00 No .4mg QD Take 1 capsule (0.4 mg total) by mouth daily for 5 days. [facility] tamsulosin (FLOMAX) 0.4 mg Cap 24 hr capsule 2022-07 00:00: 00 06-22 23:59 :00 No .4mg QD Take 1 capsule (0.4 mg total) by mouth daily for 5 days. [facility] tamsulosin (FLOMAX) 0.4 mg Cap 24 hr capsule 2022-07 00:00: 00 06-22 23:59 :00 No .4mg QD Take 1 capsule (0.4 mg total) by mouth daily for 5 days. [facility] tamsulosin (FLOMAX) 0.4 mg Cap 24 hr capsule 2022-07 00:00: 00 06-22 23:59 :00 No .4mg QD Take 1 capsule (0.4 mg total) by mouth daily for 5 days. [facility] tamsulosin (FLOMAX) 0.4 mg Cap 24 hr capsule 2022-07 00:00: 00 06-22 23:59 :00 No .4mg QD Take 1 capsule (0.4 mg total) by mouth daily for 5 days. [facility] tamsulosin (FLOMAX) 0.4 mg Cap 24 hr capsule 2022-07 00:00: 00 06-22 23:59 :00 No .4mg QD Take 1 capsule (0.4 mg total) by mouth daily for 5 days. [facility] tamsulosin (FLOMAX) 0.4 mg Cap 24 hr capsule 2022-07 00:00: 00 06-22 23:59 :00 No .4mg QD Take 1 capsule (0.4 mg total) by mouth daily for 5 days. [facility] tamsulosin (FLOMAX) 0.4 mg Cap 24 hr capsule 2022-07 00:00: 00 06-22 23:59 :00 No .4mg QD Take 1 capsule (0.4 mg total) by mouth daily for 5 days. [facility] tamsulosin (FLOMAX) 0.4 mg Cap 24 hr capsule 2022-07 00:00: 00 06-22 23:59 :00 No .4mg QD Take 1 capsule (0.4 mg total) by mouth daily for 5 days. [facility] tamsulosin (FLOMAX) 0.4 mg Cap 24 hr capsule 2022-07 00:00: 00 06-22 23:59 :00 No .4mg QD Take 1 capsule (0.4 mg total) by mouth daily for 5 days. [facility] tamsulosin (FLOMAX) 0.4 mg Cap 24 hr capsule 2022-07 00:00: 00 06-22 23:59 :00 No .4mg QD Take 1 capsule (0.4 mg total) by mouth daily for 5 days. [facility] tamsulosin (FLOMAX) 0.4 mg Cap 24 hr capsule 2022-07 00:00: 00 06-22 23:59 :00 No .4mg QD Take 1 capsule (0.4 mg total) by mouth daily for 5 days. [facility] metoprolol succinate (TOPROL-XL) 25 MG 24 hr tablet 2022-07 19:45: 32 Yes 25mg QD Take 1 tablet (25 mg total) by mouth daily. [facility] varenicline (CHANTIX) 1 mg tablet 2022-07 19:45: 32 Yes 1mg Q.5D Take 1 tablet (1 mg total) by mouth 2 (two) times daily Give with meals and with a full glass of water.. [facility] albuterol HFA (VENTOLIN HFA) 90 mcg/actuati on inhaler 2022-07 19:45: 32 Yes 1{puff} Inhale 1 puff by mouth via inhaler every 6 (six) hours as needed for Wheezing. [facility] fluticasone -umeclidin- vilanter (Trelegy Ellipta) 200-62.5-25 mcg DsDv 2022-07 19:45: 32 Yes QD Inhale by mouth via inhaler daily. [facility] atorvastati n (LIPITOR) 20 MG tablet 2022-07 19:45: 32 Yes 20mg QD Take 1 tablet (20 mg total) by mouth daily. [facility] metoprolol succinate (TOPROL-XL) 25 MG 24 hr tablet 2022-07 19:45: 32 Yes 25mg QD Take 1 tablet (25 mg total) by mouth daily. [facility] varenicline (CHANTIX) 1 mg tablet 2022-07 19:45: 32 Yes 1mg Q.5D Take 1 tablet (1 mg total) by mouth 2 (two) times daily Give with meals and with a full glass of water.. [facility] albuterol HFA (VENTOLIN HFA) 90 mcg/actuati on inhaler 2022-07 19:45: 32 Yes 1{puff} Inhale 1 puff by mouth via inhaler every 6 (six) hours as needed for Wheezing. [facility] fluticasone -umeclidin- vilanter (Trelegy Ellipta) 200-62.5-25 mcg DsDv 2022-07 19:45: 32 Yes QD Inhale by mouth via inhaler daily. [facility] atorvastati n (LIPITOR) 20 MG tablet 2022-07 19:45: 32 Yes 20mg QD Take 1 tablet (20 mg total) by mouth daily. [facility] metoprolol succinate (TOPROL-XL) 25 MG 24 hr tablet 2022-07 19:45: 32 Yes 25mg QD Take 1 tablet (25 mg total) by mouth daily. [facility] varenicline (CHANTIX) 1 mg tablet 2022-07 19:45: 32 Yes 1mg Q.5D Take 1 tablet (1 mg total) by mouth 2 (two) times daily Give with meals and with a full glass of water.. [facility] albuterol HFA (VENTOLIN HFA) 90 mcg/actuati on inhaler 2022-07 19:45: 32 Yes 1{puff} Inhale 1 puff by mouth via inhaler every 6 (six) hours as needed for Wheezing. [facility] fluticasone -umeclidin- vilanter (Trelegy Ellipta) 200-62.5-25 mcg DsDv 2022-07 19:45: 32 Yes QD Inhale by mouth via inhaler daily. [facility] atorvastati n (LIPITOR) 20 MG tablet 2022-07 19:45: 32 Yes 20mg QD Take 1 tablet (20 mg total) by mouth daily. [facility] metoprolol succinate (TOPROL-XL) 25 MG 24 hr tablet 2022-07 19:45: 32 Yes 25mg QD Take 1 tablet (25 mg total) by mouth daily. [facility] varenicline (CHANTIX) 1 mg tablet 2022-07 19:45: 32 Yes 1mg Q.5D Take 1 tablet (1 mg total) by mouth 2 (two) times daily Give with meals and with a full glass of water.. [facility] albuterol HFA (VENTOLIN HFA) 90 mcg/actuati on inhaler 2022-07 19:45: 32 Yes 1{puff} Inhale 1 puff by mouth via inhaler every 6 (six) hours as needed for Wheezing. [facility] fluticasone -umeclidin- vilanter (Trelegy Ellipta) 200-62.5-25 mcg DsDv 2022-07 19:45: 32 Yes QD Inhale by mouth via inhaler daily. [facility] atorvastati n (LIPITOR) 20 MG tablet 2022-07 19:45: 32 Yes 20mg QD Take 1 tablet (20 mg total) by mouth daily. [facility] metoprolol succinate (TOPROL-XL) 25 MG 24 hr tablet 2022-07 19:45: 32 Yes 25mg QD Take 1 tablet (25 mg total) by mouth daily. [facility] varenicline (CHANTIX) 1 mg tablet 2022-07 19:45: 32 Yes 1mg Q.5D Take 1 tablet (1 mg total) by mouth 2 (two) times daily Give with meals and with a full glass of water.. [facility] albuterol HFA (VENTOLIN HFA) 90 mcg/actuati on inhaler 2022-07 19:45: 32 Yes 1{puff} Inhale 1 puff by mouth via inhaler every 6 (six) hours as needed for Wheezing. [facility] fluticasone -umeclidin- vilanter (Trelegy Ellipta) 200-62.5-25 mcg DsDv 2022-07 19:45: 32 Yes QD Inhale by mouth via inhaler daily. [facility] atorvastati n (LIPITOR) 20 MG tablet 2022-07 19:45: 32 Yes 20mg QD Take 1 tablet (20 mg total) by mouth daily. [facility] metoprolol succinate (TOPROL-XL) 25 MG 24 hr tablet 2022-07 19:45: 32 Yes 25mg QD Take 1 tablet (25 mg total) by mouth daily. [facility] varenicline (CHANTIX) 1 mg tablet 2022-07 19:45: 32 Yes 1mg Q.5D Take 1 tablet (1 mg total) by mouth 2 (two) times daily Give with meals and with a full glass of water.. [facility] albuterol HFA (VENTOLIN HFA) 90 mcg/actuati on inhaler 2022-07 19:45: 32 Yes 1{puff} Inhale 1 puff by mouth via inhaler every 6 (six) hours as needed for Wheezing. [facility] fluticasone -umeclidin- vilanter (Trelegy Ellipta) 200-62.5-25 mcg DsDv 2022-07 19:45: 32 Yes QD Inhale by mouth via inhaler daily. [facility] atorvastati n (LIPITOR) 20 MG tablet 2022-07 19:45: 32 Yes 20mg QD Take 1 tablet (20 mg total) by mouth daily. [facility] metoprolol succinate (TOPROL-XL) 25 MG 24 hr tablet 2022-07 19:45: 32 Yes 25mg QD Take 1 tablet (25 mg total) by mouth daily. [facility] varenicline (CHANTIX) 1 mg tablet 2022-07 19:45: 32 Yes 1mg Q.5D Take 1 tablet (1 mg total) by mouth 2 (two) times daily Give with meals and with a full glass of water.. [facility] albuterol HFA (VENTOLIN HFA) 90 mcg/actuati on inhaler 2022-07 19:45: 32 Yes 1{puff} Inhale 1 puff by mouth via inhaler every 6 (six) hours as needed for Wheezing. [facility] fluticasone -umeclidin- vilanter (Trelegy Ellipta) 200-62.5-25 mcg DsDv 2022-07 19:45: 32 Yes QD Inhale by mouth via inhaler daily. [facility] atorvastati n (LIPITOR) 20 MG tablet 2022-07 19:45: 32 Yes 20mg QD Take 1 tablet (20 mg total) by mouth daily. [facility] metoprolol succinate (TOPROL-XL) 25 MG 24 hr tablet 2022-07 19:45: 32 Yes 25mg QD Take 1 tablet (25 mg total) by mouth daily. [facility] varenicline (CHANTIX) 1 mg tablet 2022-07 19:45: 32 Yes 1mg Q.5D Take 1 tablet (1 mg total) by mouth 2 (two) times daily Give with meals and with a full glass of water.. [facility] albuterol HFA (VENTOLIN HFA) 90 mcg/actuati on inhaler 2022-07 19:45: 32 Yes 1{puff} Inhale 1 puff by mouth via inhaler every 6 (six) hours as needed for Wheezing. [facility] fluticasone -umeclidin- vilanter (Trelegy Ellipta) 200-62.5-25 mcg DsDv 2022-07 19:45: 32 Yes QD Inhale by mouth via inhaler daily. [facility] atorvastati n (LIPITOR) 20 MG tablet 2022-07 19:45: 32 Yes 20mg QD Take 1 tablet (20 mg total) by mouth daily. [facility] metoprolol succinate (TOPROL-XL) 25 MG 24 hr tablet 2022-07 19:45: 32 Yes 25mg QD Take 1 tablet (25 mg total) by mouth daily. [facility] varenicline (CHANTIX) 1 mg tablet 2022-07 19:45: 32 Yes 1mg Q.5D Take 1 tablet (1 mg total) by mouth 2 (two) times daily Give with meals and with a full glass of water.. [facility] albuterol HFA (VENTOLIN HFA) 90 mcg/actuati on inhaler 2022-07 19:45: 32 Yes 1{puff} Inhale 1 puff by mouth via inhaler every 6 (six) hours as needed for Wheezing. [facility] fluticasone -umeclidin- vilanter (Trelegy Ellipta) 200-62.5-25 mcg DsDv 2022-07 19:45: 32 Yes QD Inhale by mouth via inhaler daily. [facility] atorvastati n (LIPITOR) 20 MG tablet 2022-07 19:45: 32 Yes 20mg QD Take 1 tablet (20 mg total) by mouth daily. [facility] metoprolol succinate (TOPROL-XL) 25 MG 24 hr tablet 2022-07 19:45: 32 Yes 25mg QD Take 1 tablet (25 mg total) by mouth daily. [facility] varenicline (CHANTIX) 1 mg tablet 2022-07 19:45: 32 Yes 1mg Q.5D Take 1 tablet (1 mg total) by mouth 2 (two) times daily Give with meals and with a full glass of water.. [facility] albuterol HFA (VENTOLIN HFA) 90 mcg/actuati on inhaler 2022-07 19:45: 32 Yes 1{puff} Inhale 1 puff by mouth via inhaler every 6 (six) hours as needed for Wheezing. [facility] fluticasone -umeclidin- vilanter (Trelegy Ellipta) 200-62.5-25 mcg DsDv 2022-07 19:45: 32 Yes QD Inhale by mouth via inhaler daily. [facility] atorvastati n (LIPITOR) 20 MG tablet 2022-07 19:45: 32 Yes 20mg QD Take 1 tablet (20 mg total) by mouth daily. [facility] metoprolol succinate (TOPROL-XL) 25 MG 24 hr tablet 2022-07 19:45: 32 Yes 25mg QD Take 1 tablet (25 mg total) by mouth daily. [facility] varenicline (CHANTIX) 1 mg tablet 2022-07 19:45: 32 Yes 1mg Q.5D Take 1 tablet (1 mg total) by mouth 2 (two) times daily Give with meals and with a full glass of water.. [facility] albuterol HFA (VENTOLIN HFA) 90 mcg/actuati on inhaler 2022-07 19:45: 32 Yes 1{puff} Inhale 1 puff by mouth via inhaler every 6 (six) hours as needed for Wheezing. [facility] fluticasone -umeclidin- vilanter (Trelegy Ellipta) 200-62.5-25 mcg DsDv 2022-07 19:45: 32 Yes QD Inhale by mouth via inhaler daily. [facility] atorvastati n (LIPITOR) 20 MG tablet 2022-07 19:45: 32 Yes 20mg QD Take 1 tablet (20 mg total) by mouth daily. [facility] metoprolol succinate (TOPROL-XL) 25 MG 24 hr tablet 2022-07 19:45: 32 Yes 25mg QD Take 1 tablet (25 mg total) by mouth daily. [facility] varenicline (CHANTIX) 1 mg tablet 2022-07 19:45: 32 Yes 1mg Q.5D Take 1 tablet (1 mg total) by mouth 2 (two) times daily Give with meals and with a full glass of water.. [facility] albuterol HFA (VENTOLIN HFA) 90 mcg/actuati on inhaler 2022-07 19:45: 32 Yes 1{puff} Inhale 1 puff by mouth via inhaler every 6 (six) hours as needed for Wheezing. [facility] fluticasone -umeclidin- vilanter (Trelegy Ellipta) 200-62.5-25 mcg DsDv 2022-07 19:45: 32 Yes QD Inhale by mouth via inhaler daily. [facility] atorvastati n (LIPITOR) 20 MG tablet 2022-07 19:45: 32 Yes 20mg QD Take 1 tablet (20 mg total) by mouth daily. [facility] metoprolol succinate (TOPROL-XL) 25 MG 24 hr tablet 2022-07 19:45: 32 Yes 25mg QD Take 1 tablet (25 mg total) by mouth daily. [facility] varenicline (CHANTIX) 1 mg tablet 2022-07 19:45: 32 Yes 1mg Q.5D Take 1 tablet (1 mg total) by mouth 2 (two) times daily Give with meals and with a full glass of water.. [facility] albuterol HFA (VENTOLIN HFA) 90 mcg/actuati on inhaler 2022-07 19:45: 32 Yes 1{puff} Inhale 1 puff by mouth via inhaler every 6 (six) hours as needed for Wheezing. [facility] fluticasone -umeclidin- vilanter (Trelegy Ellipta) 200-62.5-25 mcg DsDv 2022-07 19:45: 32 Yes QD Inhale by mouth via inhaler daily. [facility] atorvastati n (LIPITOR) 20 MG tablet 2022-07 19:45: 32 Yes 20mg QD Take 1 tablet (20 mg total) by mouth daily. [facility] metoprolol succinate (TOPROL-XL) 25 MG 24 hr tablet 2022-07 19:45: 32 Yes 25mg QD Take 1 tablet (25 mg total) by mouth daily. [facility] varenicline (CHANTIX) 1 mg tablet 2022-07 19:45: 32 Yes 1mg Q.5D Take 1 tablet (1 mg total) by mouth 2 (two) times daily Give with meals and with a full glass of water.. [facility] albuterol HFA (VENTOLIN HFA) 90 mcg/actuati on inhaler 2022-07 19:45: 32 Yes 1{puff} Inhale 1 puff by mouth via inhaler every 6 (six) hours as needed for Wheezing. [facility] fluticasone -umeclidin- vilanter (Trelegy Ellipta) 200-62.5-25 mcg DsDv 2022-07 19:45: 32 Yes QD Inhale by mouth via inhaler daily. [facility] atorvastati n (LIPITOR) 20 MG tablet 2022-07 19:45: 32 Yes 20mg QD Take 1 tablet (20 mg total) by mouth daily. [facility] metoprolol succinate (TOPROL-XL) 25 MG 24 hr tablet 2022-07 19:45: 32 Yes 25mg QD Take 1 tablet (25 mg total) by mouth daily. [facility] varenicline (CHANTIX) 1 mg tablet 2022-07 19:45: 32 Yes 1mg Q.5D Take 1 tablet (1 mg total) by mouth 2 (two) times daily Give with meals and with a full glass of water.. [facility] albuterol HFA (VENTOLIN HFA) 90 mcg/actuati on inhaler 2022-07 19:45: 32 Yes 1{puff} Inhale 1 puff by mouth via inhaler every 6 (six) hours as needed for Wheezing. [facility] fluticasone -umeclidin- vilanter (Trelegy Ellipta) 200-62.5-25 mcg DsDv 2022-07 19:45: 32 Yes QD Inhale by mouth via inhaler daily. [facility] atorvastati n (LIPITOR) 20 MG tablet 2022-07 19:45: 32 Yes 20mg QD Take 1 tablet (20 mg total) by mouth daily. [facility] metoprolol succinate (TOPROL-XL) 25 MG 24 hr tablet 2022-07 19:45: 32 Yes 25mg QD Take 1 tablet (25 mg total) by mouth daily. [facility] varenicline (CHANTIX) 1 mg tablet 2022-07 19:45: 32 Yes 1mg Q.5D Take 1 tablet (1 mg total) by mouth 2 (two) times daily Give with meals and with a full glass of water.. [facility] albuterol HFA (VENTOLIN HFA) 90 mcg/actuati on inhaler 2022-07 19:45: 32 Yes 1{puff} Inhale 1 puff by mouth via inhaler every 6 (six) hours as needed for Wheezing. [facility] fluticasone -umeclidin- vilanter (Trelegy Ellipta) 200-62.5-25 mcg DsDv 2022-07 19:45: 32 Yes QD Inhale by mouth via inhaler daily. [facility] atorvastati n (LIPITOR) 20 MG tablet 2022-07 19:45: 32 Yes 20mg QD Take 1 tablet (20 mg total) by mouth daily. [facility] metoprolol succinate (TOPROL-XL) 25 MG 24 hr tablet 2022-07 19:45: 32 Yes 25mg QD Take 1 tablet (25 mg total) by mouth daily. [facility] varenicline (CHANTIX) 1 mg tablet 2022-07 19:45: 32 Yes 1mg Q.5D Take 1 tablet (1 mg total) by mouth 2 (two) times daily Give with meals and with a full glass of water.. [facility] albuterol HFA (VENTOLIN HFA) 90 mcg/actuati on inhaler 2022-07 19:45: 32 Yes 1{puff} Inhale 1 puff by mouth via inhaler every 6 (six) hours as needed for Wheezing. [facility] fluticasone -umeclidin- vilanter (Trelegy Ellipta) 200-62.5-25 mcg DsDv 2022-07 19:45: 32 Yes QD Inhale by mouth via inhaler daily. [facility] atorvastati n (LIPITOR) 20 MG tablet 2022-07 19:45: 32 Yes 20mg QD Take 1 tablet (20 mg total) by mouth daily. [facility] metoprolol succinate (TOPROL-XL) 25 MG 24 hr tablet 2022-07 19:45: 32 Yes 25mg QD Take 1 tablet (25 mg total) by mouth daily. [facility] varenicline (CHANTIX) 1 mg tablet 2022-07 19:45: 32 Yes 1mg Q.5D Take 1 tablet (1 mg total) by mouth 2 (two) times daily Give with meals and with a full glass of water.. [facility] albuterol HFA (VENTOLIN HFA) 90 mcg/actuati on inhaler 2022-07 19:45: 32 Yes 1{puff} Inhale 1 puff by mouth via inhaler every 6 (six) hours as needed for Wheezing. [facility] fluticasone -umeclidin- vilanter (Trelegy Ellipta) 200-62.5-25 mcg DsDv 2022-07 19:45: 32 Yes QD Inhale by mouth via inhaler daily. [facility] atorvastati n (LIPITOR) 20 MG tablet 2022-07 19:45: 32 Yes 20mg QD Take 1 tablet (20 mg total) by mouth daily. [facility] metoprolol succinate (TOPROL-XL) 25 MG 24 hr tablet 2022-07 19:45: 32 Yes 25mg QD Take 1 tablet (25 mg total) by mouth daily. [facility] varenicline (CHANTIX) 1 mg tablet 2022-07 19:45: 32 Yes 1mg Q.5D Take 1 tablet (1 mg total) by mouth 2 (two) times daily Give with meals and with a full glass of water.. [facility] albuterol HFA (VENTOLIN HFA) 90 mcg/actuati on inhaler 2022-07 19:45: 32 Yes 1{puff} Inhale 1 puff by mouth via inhaler every 6 (six) hours as needed for Wheezing. [facility] fluticasone -umeclidin- vilanter (Trelegy Ellipta) 200-62.5-25 mcg DsDv 2022-07 19:45: 32 Yes QD Inhale by mouth via inhaler daily. [facility] atorvastati n (LIPITOR) 20 MG tablet 2022-07 19:45: 32 Yes 20mg QD Take 1 tablet (20 mg total) by mouth daily. [facility] metoprolol succinate (TOPROL-XL) 25 MG 24 hr tablet 2022-07 19:45: 32 Yes 25mg QD Take 1 tablet (25 mg total) by mouth daily. [facility] varenicline (CHANTIX) 1 mg tablet 2022-07 19:45: 32 Yes 1mg Q.5D Take 1 tablet (1 mg total) by mouth 2 (two) times daily Give with meals and with a full glass of water.. [facility] albuterol HFA (VENTOLIN HFA) 90 mcg/actuati on inhaler 2022-07 19:45: 32 Yes 1{puff} Inhale 1 puff by mouth via inhaler every 6 (six) hours as needed for Wheezing. [facility] fluticasone -umeclidin- vilanter (Trelegy Ellipta) 200-62.5-25 mcg DsDv 2022-07 19:45: 32 Yes QD Inhale by mouth via inhaler daily. [facility] atorvastati n (LIPITOR) 20 MG tablet 2022-07 19:45: 32 Yes 20mg QD Take 1 tablet (20 mg total) by mouth daily. [facility] metoprolol succinate (TOPROL-XL) 25 MG 24 hr tablet 2022-07 19:45: 32 Yes 25mg QD Take 1 tablet (25 mg total) by mouth daily. [facility] varenicline (CHANTIX) 1 mg tablet 2022-07 19:45: 32 Yes 1mg Q.5D Take 1 tablet (1 mg total) by mouth 2 (two) times daily Give with meals and with a full glass of water.. [facility] albuterol HFA (VENTOLIN HFA) 90 mcg/actuati on inhaler 2022-07 19:45: 32 Yes 1{puff} Inhale 1 puff by mouth via inhaler every 6 (six) hours as needed for Wheezing. [facility] fluticasone -umeclidin- vilanter (Trelegy Ellipta) 200-62.5-25 mcg DsDv 2022-07 19:45: 32 Yes QD Inhale by mouth via inhaler daily. [facility] atorvastati n (LIPITOR) 20 MG tablet 2022-07 19:45: 32 Yes 20mg QD Take 1 tablet (20 mg total) by mouth daily. [facility] metoprolol succinate (TOPROL-XL) 25 MG 24 hr tablet 2022-07 19:45: 32 Yes 25mg QD Take 1 tablet (25 mg total) by mouth daily. [facility] varenicline (CHANTIX) 1 mg tablet 2022-07 19:45: 32 Yes 1mg Q.5D Take 1 tablet (1 mg total) by mouth 2 (two) times daily Give with meals and with a full glass of water.. [facility] albuterol HFA (VENTOLIN HFA) 90 mcg/actuati on inhaler 2022-07 19:45: 32 Yes 1{puff} Inhale 1 puff by mouth via inhaler every 6 (six) hours as needed for Wheezing. [facility] fluticasone -umeclidin- vilanter (Trelegy Ellipta) 200-62.5-25 mcg DsDv 2022-07 19:45: 32 Yes QD Inhale by mouth via inhaler daily. [facility] atorvastati n (LIPITOR) 20 MG tablet 2022-07 19:45: 32 Yes 20mg QD Take 1 tablet (20 mg total) by mouth daily. [facility] metoprolol succinate (TOPROL-XL) 25 MG 24 hr tablet 2022-07 19:45: 32 Yes 25mg QD Take 1 tablet (25 mg total) by mouth daily. [facility] varenicline (CHANTIX) 1 mg tablet 2022-07 19:45: 32 Yes 1mg Q.5D Take 1 tablet (1 mg total) by mouth 2 (two) times daily Give with meals and with a full glass of water.. [facility] albuterol HFA (VENTOLIN HFA) 90 mcg/actuati on inhaler 2022-07 19:45: 32 Yes 1{puff} Inhale 1 puff by mouth via inhaler every 6 (six) hours as needed for Wheezing. [facility] fluticasone -umeclidin- vilanter (Trelegy Ellipta) 200-62.5-25 mcg DsDv 2022-07 19:45: 32 Yes QD Inhale by mouth via inhaler daily. [facility] atorvastati n (LIPITOR) 20 MG tablet 2022-07 19:45: 32 Yes 20mg QD Take 1 tablet (20 mg total) by mouth daily. [facility] acetaminoph en-codeine (TYLENOL #3) 300-30 mg per tablet 2022-07 18:02: 00 06-16 00:00 :00 No 1{tbl} Take 1 tablet by mouth every 4 (four) hours as needed for Pain. [facility] acetaminoph en-codeine (TYLENOL #3) 300-30 mg per tablet 2022-07 18:02: 00 06-16 00:00 :00 No 1{tbl} Take 1 tablet by mouth every 4 (four) hours as needed for Pain. [facility] acetaminoph en-codeine (TYLENOL #3) 300-30 mg per tablet 2022-07 18:02: 00 06-16 00:00 :00 No 1{tbl} Take 1 tablet by mouth every 4 (four) hours as needed for Pain. [facility] acetaminoph en-codeine (TYLENOL #3) 300-30 mg per tablet 2022-07 18:02: 00 06-16 00:00 :00 No 1{tbl} Take 1 tablet by mouth every 4 (four) hours as needed for Pain. [facility] acetaminoph en-codeine (TYLENOL #3) 300-30 mg per tablet 2022-07 18:02: 00 06-16 00:00 :00 No 1{tbl} Take 1 tablet by mouth every 4 (four) hours as needed for Pain. [facility] acetaminoph en-codeine (TYLENOL #3) 300-30 mg per tablet 2022-07 18:02: 00 06-16 00:00 :00 No 1{tbl} Take 1 tablet by mouth every 4 (four) hours as needed for Pain. [facility] acetaminoph en-codeine (TYLENOL #3) 300-30 mg per tablet 2022-07 18:02: 00 06-16 00:00 :00 No 1{tbl} Take 1 tablet by mouth every 4 (four) hours as needed for Pain. [facility] acetaminoph en-codeine (TYLENOL #3) 300-30 mg per tablet 2022-07 18:02: 00 06-16 00:00 :00 No 1{tbl} Take 1 tablet by mouth every 4 (four) hours as needed for Pain. [facility] acetaminoph en-codeine (TYLENOL #3) 300-30 mg per tablet 2022-07 18:02: 00 06-16 00:00 :00 No 1{tbl} Take 1 tablet by mouth every 4 (four) hours as needed for Pain. [facility] acetaminoph en-codeine (TYLENOL #3) 300-30 mg per tablet 2022-07 18:02: 00 06-16 00:00 :00 No 1{tbl} Take 1 tablet by mouth every 4 (four) hours as needed for Pain. [facility] acetaminoph en-codeine (TYLENOL #3) 300-30 mg per tablet 2022-07 18:02: 00 06-16 00:00 :00 No 1{tbl} Take 1 tablet by mouth every 4 (four) hours as needed for Pain. [facility] acetaminoph en-codeine (TYLENOL #3) 300-30 mg per tablet 2022-07 18:02: 00 06-16 00:00 :00 No 1{tbl} Take 1 tablet by mouth every 4 (four) hours as needed for Pain. [facility] acetaminoph en-codeine (TYLENOL #3) 300-30 mg per tablet 2022-07 18:02: 00 06-16 00:00 :00 No 1{tbl} Take 1 tablet by mouth every 4 (four) hours as needed for Pain. [facility] acetaminoph en-codeine (TYLENOL #3) 300-30 mg per tablet 2022-07 18:02: 00 06-16 00:00 :00 No 1{tbl} Take 1 tablet by mouth every 4 (four) hours as needed for Pain. [facility] acetaminoph en-codeine (TYLENOL #3) 300-30 mg per tablet 2022-07 18:02: 00 06-16 00:00 :00 No 1{tbl} Take 1 tablet by mouth every 4 (four) hours as needed for Pain. [facility] acetaminoph en-codeine (TYLENOL #3) 300-30 mg per tablet 2022-07 18:02: 00 06-16 00:00 :00 No 1{tbl} Take 1 tablet by mouth every 4 (four) hours as needed for Pain. [facility] acetaminoph en-codeine (TYLENOL #3) 300-30 mg per tablet 2022-07 18:02: 00 06-16 00:00 :00 No 1{tbl} Take 1 tablet by mouth every 4 (four) hours as needed for Pain. [facility] acetaminoph en-codeine (TYLENOL #3) 300-30 mg per tablet 2022-07 18:02: 00 06-16 00:00 :00 No 1{tbl} Take 1 tablet by mouth every 4 (four) hours as needed for Pain. [facility] acetaminoph en-codeine (TYLENOL #3) 300-30 mg per tablet 2022-07 18:02: 00 06-16 00:00 :00 No 1{tbl} Take 1 tablet by mouth every 4 (four) hours as needed for Pain. [facility] acetaminoph en-codeine (TYLENOL #3) 300-30 mg per tablet 2022-07 18:02: 00 06-16 00:00 :00 No 1{tbl} Take 1 tablet by mouth every 4 (four) hours as needed for Pain. [facility] acetaminoph en-codeine (TYLENOL #3) 300-30 mg per tablet 2022-07 18:02: 00 06-16 00:00 :00 No 1{tbl} Take 1 tablet by mouth every 4 (four) hours as needed for Pain. [facility] acetaminoph en-codeine (TYLENOL #3) 300-30 mg per tablet 2022-07 18:02: 00 06-16 00:00 :00 No 1{tbl} Take 1 tablet by mouth every 4 (four) hours as needed for Pain. [facility] acetaminoph en-codeine (TYLENOL #3) 300-30 mg per tablet 2022-07 18:02: 00 06-16 00:00 :00 No 1{tbl} Take 1 tablet by mouth every 4 (four) hours as needed for Pain. [facility] acetaminoph en-codeine (TYLENOL #3) 300-30 mg per tablet 2022-07 18:02: 00 06-16 00:00 :00 No 1{tbl} Take 1 tablet by mouth every 4 (four) hours as needed for Pain. [facility] acetaminoph en-codeine (TYLENOL #3) 300-30 mg per tablet 2022-07 18:02: 00 06-16 00:00 :00 No 1{tbl} Take 1 tablet by mouth every 4 (four) hours as needed for Pain. [facility] acetaminoph en-codeine (TYLENOL #3) 300-30 mg per tablet 2022-07 18:02: 00 06-16 00:00 :00 No 1{tbl} Take 1 tablet by mouth every 4 (four) hours as needed for Pain. [facility] DULoxetine (CYMBALTA) 30 MG capsule 2022-07 00:00: 00 09-14 23:59 :00 No 30mg QD Take 1 capsule (30 mg total) by mouth daily for 90 days. [facility] DULoxetine (CYMBALTA) 30 MG capsule 2022-07 00:00: 00 09-14 23:59 :00 No 30mg QD Take 1 capsule (30 mg total) by mouth daily for 90 days. [facility] DULoxetine (CYMBALTA) 30 MG capsule 2022-07 00:00: 00 09-14 23:59 :00 No 30mg QD Take 1 capsule (30 mg total) by mouth daily for 90 days. [facility] DULoxetine (CYMBALTA) 30 MG capsule 2022-07 00:00: 00 09-14 23:59 :00 No 30mg QD Take 1 capsule (30 mg total) by mouth daily for 90 days. [facility] DULoxetine (CYMBALTA) 30 MG capsule 2022-07 00:00: 00 09-14 23:59 :00 No 30mg QD Take 1 capsule (30 mg total) by mouth daily for 90 days. [facility] DULoxetine (CYMBALTA) 30 MG capsule 2022-07 00:00: 00 09-14 23:59 :00 No 30mg QD Take 1 capsule (30 mg total) by mouth daily for 90 days. [facility] DULoxetine (CYMBALTA) 30 MG capsule 2022-07 00:00: 00 09-14 23:59 :00 No 30mg QD Take 1 capsule (30 mg total) by mouth daily for 90 days. [facility] DULoxetine (CYMBALTA) 30 MG capsule 2022-07 00:00: 00 09-14 23:59 :00 No 30mg QD Take 1 capsule (30 mg total) by mouth daily for 90 days. [facility] DULoxetine (CYMBALTA) 30 MG capsule 2022-07 00:00: 00 09-14 23:59 :00 No 30mg QD Take 1 capsule (30 mg total) by mouth daily for 90 days. [facility] DULoxetine (CYMBALTA) 30 MG capsule 2022-07 00:00: 00 09-14 23:59 :00 No 30mg QD Take 1 capsule (30 mg total) by mouth daily for 90 days. [facility] DULoxetine (CYMBALTA) 30 MG capsule 2022-07 00:00: 00 09-14 23:59 :00 No 30mg QD Take 1 capsule (30 mg total) by mouth daily for 90 days. [facility] DULoxetine (CYMBALTA) 30 MG capsule 2022-07 00:00: 00 09-14 23:59 :00 No 30mg QD Take 1 capsule (30 mg total) by mouth daily for 90 days. [facility] DULoxetine (CYMBALTA) 30 MG capsule 2022-07 00:00: 00 09-14 23:59 :00 No 30mg QD Take 1 capsule (30 mg total) by mouth daily for 90 days. [facility] DULoxetine (CYMBALTA) 30 MG capsule 2022-07 00:00: 00 09-14 23:59 :00 No 30mg QD Take 1 capsule (30 mg total) by mouth daily for 90 days. [facility] DULoxetine (CYMBALTA) 30 MG capsule 2022-07 00:00: 00 09-14 23:59 :00 No 30mg QD Take 1 capsule (30 mg total) by mouth daily for 90 days. [facility] DULoxetine (CYMBALTA) 30 MG capsule 2022-07 00:00: 00 09-14 23:59 :00 No 30mg QD Take 1 capsule (30 mg total) by mouth daily for 90 days. [facility] DULoxetine (CYMBALTA) 30 MG capsule 2022-07 00:00: 00 09-14 23:59 :00 No 30mg QD Take 1 capsule (30 mg total) by mouth daily for 90 days. [facility] DULoxetine (CYMBALTA) 30 MG capsule 2022-07 00:00: 00 09-14 23:59 :00 No 30mg QD Take 1 capsule (30 mg total) by mouth daily for 90 days. [facility] DULoxetine (CYMBALTA) 30 MG capsule 2022-07 00:00: 00 09-14 23:59 :00 No 30mg QD Take 1 capsule (30 mg total) by mouth daily for 90 days. [facility] DULoxetine (CYMBALTA) 30 MG capsule 2022-07 00:00: 00 09-14 23:59 :00 No 30mg QD Take 1 capsule (30 mg total) by mouth daily for 90 days. [facility] DULoxetine (CYMBALTA) 30 MG capsule 2022-07 00:00: 00 09-14 23:59 :00 No 30mg QD Take 1 capsule (30 mg total) by mouth daily for 90 days. [facility] DULoxetine (CYMBALTA) 30 MG capsule 2022-07 00:00: 00 09-14 23:59 :00 No 30mg QD Take 1 capsule (30 mg total) by mouth daily for 90 days. [facility] DULoxetine (CYMBALTA) 30 MG capsule 2022-07 00:00: 00 09-14 23:59 :00 No 30mg QD Take 1 capsule (30 mg total) by mouth daily for 90 days. [facility] DULoxetine (CYMBALTA) 30 MG capsule 2022-07 00:00: 00 09-08 00:00 :00 No 30mg QD Take 1 capsule (30 mg total) by mouth daily for 90 days. [facility] DULoxetine (CYMBALTA) 30 MG capsule 2022-07 00:00: 00 09-08 00:00 :00 No 30mg QD Take 1 capsule (30 mg total) by mouth daily for 90 days. [facility] DULoxetine (CYMBALTA) 30 MG capsule 2022-07 00:00: 00 09-08 00:00 :00 No 30mg QD Take 1 capsule (30 mg total) by mouth daily for 90 days. [facility] metroNIDAZO LE (FLAGYL) 500 MG tablet 2022-07 00:00: 00 07-04 23:59 :00 No 500mg Take 1 tablet (500 mg total) by mouth every 8 (eight) hours for 18 days. [facility] ciprofloxac in HCl (CIPRO) 500 MG tablet 2022-07 00:00: 00 07-04 23:59 :00 No 500mg Q.5D Take 1 tablet (500 mg total) by mouth 2 (two) times daily for 18 days. [facility] metroNIDAZO LE (FLAGYL) 500 MG tablet 2022-07 00:00: 00 07-04 23:59 :00 No 500mg Take 1 tablet (500 mg total) by mouth every 8 (eight) hours for 18 days. [facility] ciprofloxac in HCl (CIPRO) 500 MG tablet 2022-07 00:00: 00 07-04 23:59 :00 No 500mg Q.5D Take 1 tablet (500 mg total) by mouth 2 (two) times daily for 18 days. [facility] metroNIDAZO LE (FLAGYL) 500 MG tablet 2022-07 00:00: 00 07-04 23:59 :00 No 500mg Take 1 tablet (500 mg total) by mouth every 8 (eight) hours for 18 days. [facility] ciprofloxac in HCl (CIPRO) 500 MG tablet 2022-07 00:00: 00 07-04 23:59 :00 No 500mg Q.5D Take 1 tablet (500 mg total) by mouth 2 (two) times daily for 18 days. [facility] metroNIDAZO LE (FLAGYL) 500 MG tablet 2022-07 00:00: 00 07-04 23:59 :00 No 500mg Take 1 tablet (500 mg total) by mouth every 8 (eight) hours for 18 days. [facility] ciprofloxac in HCl (CIPRO) 500 MG tablet 2022-07 00:00: 00 07-04 23:59 :00 No 500mg Q.5D Take 1 tablet (500 mg total) by mouth 2 (two) times daily for 18 days. [facility] metroNIDAZO LE (FLAGYL) 500 MG tablet 2022-07 00:00: 00 07-04 23:59 :00 No 500mg Take 1 tablet (500 mg total) by mouth every 8 (eight) hours for 18 days. [facility] ciprofloxac in HCl (CIPRO) 500 MG tablet 2022-07 00:00: 00 07-04 23:59 :00 No 500mg Q.5D Take 1 tablet (500 mg total) by mouth 2 (two) times daily for 18 days. [facility] metroNIDAZO LE (FLAGYL) 500 MG tablet 2022-07 00:00: 00 07-04 23:59 :00 No 500mg Take 1 tablet (500 mg total) by mouth every 8 (eight) hours for 18 days. [facility] ciprofloxac in HCl (CIPRO) 500 MG tablet 2022-07 00:00: 00 07-04 23:59 :00 No 500mg Q.5D Take 1 tablet (500 mg total) by mouth 2 (two) times daily for 18 days. [facility] metroNIDAZO LE (FLAGYL) 500 MG tablet 2022-07 00:00: 00 07-04 23:59 :00 No 500mg Take 1 tablet (500 mg total) by mouth every 8 (eight) hours for 18 days. [facility] ciprofloxac in HCl (CIPRO) 500 MG tablet 2022-07 00:00: 00 07-04 23:59 :00 No 500mg Q.5D Take 1 tablet (500 mg total) by mouth 2 (two) times daily for 18 days. [facility] metroNIDAZO LE (FLAGYL) 500 MG tablet 2022-07 00:00: 00 07-04 23:59 :00 No 500mg Take 1 tablet (500 mg total) by mouth every 8 (eight) hours for 18 days. [facility] ciprofloxac in HCl (CIPRO) 500 MG tablet 2022-07 00:00: 00 07-04 23:59 :00 No 500mg Q.5D Take 1 tablet (500 mg total) by mouth 2 (two) times daily for 18 days. [facility] metroNIDAZO LE (FLAGYL) 500 MG tablet 2022-07 00:00: 00 07-04 23:59 :00 No 500mg Take 1 tablet (500 mg total) by mouth every 8 (eight) hours for 18 days. [facility] ciprofloxac in HCl (CIPRO) 500 MG tablet 2022-07 00:00: 00 07-04 23:59 :00 No 500mg Q.5D Take 1 tablet (500 mg total) by mouth 2 (two) times daily for 18 days. [facility] metroNIDAZO LE (FLAGYL) 500 MG tablet 2022-07 00:00: 00 07-04 23:59 :00 No 500mg Take 1 tablet (500 mg total) by mouth every 8 (eight) hours for 18 days. [facility] ciprofloxac in HCl (CIPRO) 500 MG tablet 2022-07 00:00: 00 07-04 23:59 :00 No 500mg Q.5D Take 1 tablet (500 mg total) by mouth 2 (two) times daily for 18 days. [facility] metroNIDAZO LE (FLAGYL) 500 MG tablet 2022-07 00:00: 00 07-04 23:59 :00 No 500mg Take 1 tablet (500 mg total) by mouth every 8 (eight) hours for 18 days. [facility] ciprofloxac in HCl (CIPRO) 500 MG tablet 2022-07 00:00: 00 07-04 23:59 :00 No 500mg Q.5D Take 1 tablet (500 mg total) by mouth 2 (two) times daily for 18 days. [facility] metroNIDAZO LE (FLAGYL) 500 MG tablet 2022-07 00:00: 00 07-04 23:59 :00 No 500mg Take 1 tablet (500 mg total) by mouth every 8 (eight) hours for 18 days. [facility] ciprofloxac in HCl (CIPRO) 500 MG tablet 2022-07 00:00: 00 07-04 23:59 :00 No 500mg Q.5D Take 1 tablet (500 mg total) by mouth 2 (two) times daily for 18 days. [facility] metroNIDAZO LE (FLAGYL) 500 MG tablet 2022-07 00:00: 00 07-04 23:59 :00 No 500mg Take 1 tablet (500 mg total) by mouth every 8 (eight) hours for 18 days. [facility] ciprofloxac in HCl (CIPRO) 500 MG tablet 2022-07 00:00: 00 07-04 23:59 :00 No 500mg Q.5D Take 1 tablet (500 mg total) by mouth 2 (two) times daily for 18 days. [facility] metroNIDAZO LE (FLAGYL) 500 MG tablet 2022-07 00:00: 00 07-04 23:59 :00 No 500mg Take 1 tablet (500 mg total) by mouth every 8 (eight) hours for 18 days. [facility] ciprofloxac in HCl (CIPRO) 500 MG tablet 2022-07 00:00: 00 07-04 23:59 :00 No 500mg Q.5D Take 1 tablet (500 mg total) by mouth 2 (two) times daily for 18 days. [facility] metroNIDAZO LE (FLAGYL) 500 MG tablet 2022-07 00:00: 00 07-04 23:59 :00 No 500mg Take 1 tablet (500 mg total) by mouth every 8 (eight) hours for 18 days. [facility] ciprofloxac in HCl (CIPRO) 500 MG tablet 2022-07 00:00: 00 07-04 23:59 :00 No 500mg Q.5D Take 1 tablet (500 mg total) by mouth 2 (two) times daily for 18 days. [facility] metroNIDAZO LE (FLAGYL) 500 MG tablet 2022-07 00:00: 00 07-04 23:59 :00 No 500mg Take 1 tablet (500 mg total) by mouth every 8 (eight) hours for 18 days. [facility] ciprofloxac in HCl (CIPRO) 500 MG tablet 2022-07 00:00: 00 07-04 23:59 :00 No 500mg Q.5D Take 1 tablet (500 mg total) by mouth 2 (two) times daily for 18 days. [facility] metroNIDAZO LE (FLAGYL) 500 MG tablet 2022-07 00:00: 00 07-04 23:59 :00 No 500mg Take 1 tablet (500 mg total) by mouth every 8 (eight) hours for 18 days. [facility] ciprofloxac in HCl (CIPRO) 500 MG tablet 2022-07 00:00: 00 07-04 23:59 :00 No 500mg Q.5D Take 1 tablet (500 mg total) by mouth 2 (two) times daily for 18 days. [facility] metroNIDAZO LE (FLAGYL) 500 MG tablet 2022-07 00:00: 00 07-04 23:59 :00 No 500mg Take 1 tablet (500 mg total) by mouth every 8 (eight) hours for 18 days. [facility] ciprofloxac in HCl (CIPRO) 500 MG tablet 2022-07 00:00: 00 07-04 23:59 :00 No 500mg Q.5D Take 1 tablet (500 mg total) by mouth 2 (two) times daily for 18 days. [facility] metroNIDAZO LE (FLAGYL) 500 MG tablet 2022-07 00:00: 00 07-04 23:59 :00 No 500mg Take 1 tablet (500 mg total) by mouth every 8 (eight) hours for 18 days. [facility] ciprofloxac in HCl (CIPRO) 500 MG tablet 2022-07 00:00: 00 07-04 23:59 :00 No 500mg Q.5D Take 1 tablet (500 mg total) by mouth 2 (two) times daily for 18 days. [facility] metroNIDAZO LE (FLAGYL) 500 MG tablet 2022-07 00:00: 00 07-04 23:59 :00 No 500mg Take 1 tablet (500 mg total) by mouth every 8 (eight) hours for 18 days. [facility] ciprofloxac in HCl (CIPRO) 500 MG tablet 2022-07 00:00: 00 07-04 23:59 :00 No 500mg Q.5D Take 1 tablet (500 mg total) by mouth 2 (two) times daily for 18 days. [facility] metroNIDAZO LE (FLAGYL) 500 MG tablet 2022-07 00:00: 00 07-04 23:59 :00 No 500mg Take 1 tablet (500 mg total) by mouth every 8 (eight) hours for 18 days. [facility] ciprofloxac in HCl (CIPRO) 500 MG tablet 2022-07 00:00: 00 07-04 23:59 :00 No 500mg Q.5D Take 1 tablet (500 mg total) by mouth 2 (two) times daily for 18 days. [facility] metroNIDAZO LE (FLAGYL) 500 MG tablet 2022-07 00:00: 00 07-04 23:59 :00 No 500mg Take 1 tablet (500 mg total) by mouth every 8 (eight) hours for 18 days. [facility] ciprofloxac in HCl (CIPRO) 500 MG tablet 2022-07 00:00: 00 07-04 23:59 :00 No 500mg Q.5D Take 1 tablet (500 mg total) by mouth 2 (two) times daily for 18 days. [facility] metroNIDAZO LE (FLAGYL) 500 MG tablet 2022-07 00:00: 00 07-04 23:59 :00 No 500mg Take 1 tablet (500 mg total) by mouth every 8 (eight) hours for 18 days. [facility] ciprofloxac in HCl (CIPRO) 500 MG tablet 2022-07 00:00: 00 07-04 23:59 :00 No 500mg Q.5D Take 1 tablet (500 mg total) by mouth 2 (two) times daily for 18 days. [facility] metroNIDAZO LE (FLAGYL) 500 MG tablet 2022-07 00:00: 00 07-04 23:59 :00 No 500mg Take 1 tablet (500 mg total) by mouth every 8 (eight) hours for 18 days. [facility] ciprofloxac in HCl (CIPRO) 500 MG tablet 2022-07 00:00: 00 07-04 23:59 :00 No 500mg Q.5D Take 1 tablet (500 mg total) by mouth 2 (two) times daily for 18 days. [facility] metroNIDAZO LE (FLAGYL) 500 MG tablet 2022-07 00:00: 00 07-04 23:59 :00 No 500mg Take 1 tablet (500 mg total) by mouth every 8 (eight) hours for 18 days. [facility] ciprofloxac in HCl (CIPRO) 500 MG tablet 2022-07 00:00: 00 07-04 23:59 :00 No 500mg Q.5D Take 1 tablet (500 mg total) by mouth 2 (two) times daily for 18 days. [facility] metroNIDAZO LE (FLAGYL) 500 MG tablet 2022-07 00:00: 00 07-04 23:59 :00 No 500mg Take 1 tablet (500 mg total) by mouth every 8 (eight) hours for 18 days. [facility] ciprofloxac in HCl (CIPRO) 500 MG tablet 2022-07 00:00: 00 07-04 23:59 :00 No 500mg Q.5D Take 1 tablet (500 mg total) by mouth 2 (two) times daily for 18 days. [facility] cyclobenzap rine (FLEXERIL) 10 MG tablet 2022-07 00:00: 00 06-26 23:59 :00 No 10mg Q.[id number] 3D Take 1 tablet (10 mg total) by mouth 3 (three) times daily for 10 days. [facility] oxyCODONE (OXY-IR) 10 mg tablet 2022-07 00:00: 00 06-26 23:59 :00 No 10mg Take 1 tablet (10 mg total) by mouth every 8 (eight) hours as needed for up to 10 days. Max Daily Amount: 30 mg [facility] cyclobenzap rine (FLEXERIL) 10 MG tablet 2022-07 00:00: 00 06-26 23:59 :00 No 10mg Q.[id number] 3D Take 1 tablet (10 mg total) by mouth 3 (three) times daily for 10 days. [facility] oxyCODONE (OXY-IR) 10 mg tablet 2022-07 00:00: 00 06-26 23:59 :00 No 10mg Take 1 tablet (10 mg total) by mouth every 8 (eight) hours as needed for up to 10 days. Max Daily Amount: 30 mg [facility] cyclobenzap rine (FLEXERIL) 10 MG tablet 2022-07 00:00: 00 06-26 23:59 :00 No 10mg Q.[id number] 3D Take 1 tablet (10 mg total) by mouth 3 (three) times daily for 10 days. [facility] oxyCODONE (OXY-IR) 10 mg tablet 2022-07 00:00: 00 06-26 23:59 :00 No 10mg Take 1 tablet (10 mg total) by mouth every 8 (eight) hours as needed for up to 10 days. Max Daily Amount: 30 mg [facility] cyclobenzap rine (FLEXERIL) 10 MG tablet 2022-07 00:00: 00 06-26 23:59 :00 No 10mg Q.[id number] 3D Take 1 tablet (10 mg total) by mouth 3 (three) times daily for 10 days. [facility] oxyCODONE (OXY-IR) 10 mg tablet 2022-07 00:00: 00 06-26 23:59 :00 No 10mg Take 1 tablet (10 mg total) by mouth every 8 (eight) hours as needed for up to 10 days. Max Daily Amount: 30 mg [facility] cyclobenzap rine (FLEXERIL) 10 MG tablet 2022-07 00:00: 00 06-26 23:59 :00 No 10mg Q.[id number] 3D Take 1 tablet (10 mg total) by mouth 3 (three) times daily for 10 days. [facility] oxyCODONE (OXY-IR) 10 mg tablet 2022-07 00:00: 00 06-26 23:59 :00 No 10mg Take 1 tablet (10 mg total) by mouth every 8 (eight) hours as needed for up to 10 days. Max Daily Amount: 30 mg [facility] cyclobenzap rine (FLEXERIL) 10 MG tablet 2022-07 00:00: 00 06-26 23:59 :00 No 10mg Q.[id number] 3D Take 1 tablet (10 mg total) by mouth 3 (three) times daily for 10 days. [facility] oxyCODONE (OXY-IR) 10 mg tablet 2022-07 00:00: 00 06-26 23:59 :00 No 10mg Take 1 tablet (10 mg total) by mouth every 8 (eight) hours as needed for up to 10 days. Max Daily Amount: 30 mg [facility] cyclobenzap rine (FLEXERIL) 10 MG tablet 2022-07 00:00: 00 06-26 23:59 :00 No 10mg Q.[id number] 3D Take 1 tablet (10 mg total) by mouth 3 (three) times daily for 10 days. [facility] oxyCODONE (OXY-IR) 10 mg tablet 2022-07 00:00: 00 06-26 23:59 :00 No 10mg Take 1 tablet (10 mg total) by mouth every 8 (eight) hours as needed for up to 10 days. Max Daily Amount: 30 mg [facility] cyclobenzap rine (FLEXERIL) 10 MG tablet 2022-07 00:00: 00 06-26 23:59 :00 No 10mg Q.[id number] 3D Take 1 tablet (10 mg total) by mouth 3 (three) times daily for 10 days. [facility] oxyCODONE (OXY-IR) 10 mg tablet 2022-07 00:00: 00 06-26 23:59 :00 No 10mg Take 1 tablet (10 mg total) by mouth every 8 (eight) hours as needed for up to 10 days. Max Daily Amount: 30 mg [facility] cyclobenzap rine (FLEXERIL) 10 MG tablet 2022-07 00:00: 00 06-26 23:59 :00 No 10mg Q.[id number] 3D Take 1 tablet (10 mg total) by mouth 3 (three) times daily for 10 days. [facility] oxyCODONE (OXY-IR) 10 mg tablet 2022-07 00:00: 00 06-26 23:59 :00 No 10mg Take 1 tablet (10 mg total) by mouth every 8 (eight) hours as needed for up to 10 days. Max Daily Amount: 30 mg [facility] cyclobenzap rine (FLEXERIL) 10 MG tablet 2022-07 00:00: 00 06-26 23:59 :00 No 10mg Q.[id number] 3D Take 1 tablet (10 mg total) by mouth 3 (three) times daily for 10 days. [facility] oxyCODONE (OXY-IR) 10 mg tablet 2022-07 00:00: 00 06-26 23:59 :00 No 10mg Take 1 tablet (10 mg total) by mouth every 8 (eight) hours as needed for up to 10 days. Max Daily Amount: 30 mg [facility] cyclobenzap rine (FLEXERIL) 10 MG tablet 2022-07 00:00: 00 06-26 23:59 :00 No 10mg Q.[id number] 3D Take 1 tablet (10 mg total) by mouth 3 (three) times daily for 10 days. [facility] oxyCODONE (OXY-IR) 10 mg tablet 2022-07 00:00: 00 06-26 23:59 :00 No 10mg Take 1 tablet (10 mg total) by mouth every 8 (eight) hours as needed for up to 10 days. Max Daily Amount: 30 mg [facility] cyclobenzap rine (FLEXERIL) 10 MG tablet 2022-07 00:00: 00 06-26 23:59 :00 No 10mg Q.[id number] 3D Take 1 tablet (10 mg total) by mouth 3 (three) times daily for 10 days. [facility] oxyCODONE (OXY-IR) 10 mg tablet 2022-07 00:00: 00 06-26 23:59 :00 No 10mg Take 1 tablet (10 mg total) by mouth every 8 (eight) hours as needed for up to 10 days. Max Daily Amount: 30 mg [facility] cyclobenzap rine (FLEXERIL) 10 MG tablet 2022-07 00:00: 00 06-26 23:59 :00 No 10mg Q.[id number] 3D Take 1 tablet (10 mg total) by mouth 3 (three) times daily for 10 days. [facility] oxyCODONE (OXY-IR) 10 mg tablet 2022-07 00:00: 00 06-26 23:59 :00 No 10mg Take 1 tablet (10 mg total) by mouth every 8 (eight) hours as needed for up to 10 days. Max Daily Amount: 30 mg [facility] cyclobenzap rine (FLEXERIL) 10 MG tablet 2022-07 00:00: 00 06-26 23:59 :00 No 10mg Q.[id number] 3D Take 1 tablet (10 mg total) by mouth 3 (three) times daily for 10 days. [facility] oxyCODONE (OXY-IR) 10 mg tablet 2022-07 00:00: 00 06-26 23:59 :00 No 10mg Take 1 tablet (10 mg total) by mouth every 8 (eight) hours as needed for up to 10 days. Max Daily Amount: 30 mg [facility] cyclobenzap rine (FLEXERIL) 10 MG tablet 2022-07 00:00: 00 06-26 23:59 :00 No 10mg Q.[id number] 3D Take 1 tablet (10 mg total) by mouth 3 (three) times daily for 10 days. [facility] oxyCODONE (OXY-IR) 10 mg tablet 2022-07 00:00: 00 06-26 23:59 :00 No 10mg Take 1 tablet (10 mg total) by mouth every 8 (eight) hours as needed for up to 10 days. Max Daily Amount: 30 mg [facility] cyclobenzap rine (FLEXERIL) 10 MG tablet 2022-07 00:00: 00 06-26 23:59 :00 No 10mg Q.[id number] 3D Take 1 tablet (10 mg total) by mouth 3 (three) times daily for 10 days. [facility] oxyCODONE (OXY-IR) 10 mg tablet 2022-07 00:00: 00 06-26 23:59 :00 No 10mg Take 1 tablet (10 mg total) by mouth every 8 (eight) hours as needed for up to 10 days. Max Daily Amount: 30 mg [facility] cyclobenzap rine (FLEXERIL) 10 MG tablet 2022-07 00:00: 00 06-26 23:59 :00 No 10mg Q.[id number] 3D Take 1 tablet (10 mg total) by mouth 3 (three) times daily for 10 days. [facility] oxyCODONE (OXY-IR) 10 mg tablet 2022-07 00:00: 00 06-26 23:59 :00 No 10mg Take 1 tablet (10 mg total) by mouth every 8 (eight) hours as needed for up to 10 days. Max Daily Amount: 30 mg [facility] cyclobenzap rine (FLEXERIL) 10 MG tablet 2022-07 00:00: 00 06-26 23:59 :00 No 10mg Q.[id number] 3D Take 1 tablet (10 mg total) by mouth 3 (three) times daily for 10 days. [facility] oxyCODONE (OXY-IR) 10 mg tablet 2022-07 00:00: 00 06-26 23:59 :00 No 10mg Take 1 tablet (10 mg total) by mouth every 8 (eight) hours as needed for up to 10 days. Max Daily Amount: 30 mg [facility] cyclobenzap rine (FLEXERIL) 10 MG tablet 2022-07 00:00: 00 06-26 23:59 :00 No 10mg Q.[id number] 3D Take 1 tablet (10 mg total) by mouth 3 (three) times daily for 10 days. [facility] oxyCODONE (OXY-IR) 10 mg tablet 2022-07 00:00: 00 06-26 23:59 :00 No 10mg Take 1 tablet (10 mg total) by mouth every 8 (eight) hours as needed for up to 10 days. Max Daily Amount: 30 mg [facility] cyclobenzap rine (FLEXERIL) 10 MG tablet 2022-07 00:00: 00 06-26 23:59 :00 No 10mg Q.[id number] 3D Take 1 tablet (10 mg total) by mouth 3 (three) times daily for 10 days. [facility] oxyCODONE (OXY-IR) 10 mg tablet 2022-07 00:00: 00 06-26 23:59 :00 No 10mg Take 1 tablet (10 mg total) by mouth every 8 (eight) hours as needed for up to 10 days. Max Daily Amount: 30 mg [facility] cyclobenzap rine (FLEXERIL) 10 MG tablet 2022-07 00:00: 00 06-26 23:59 :00 No 10mg Q.[id number] 3D Take 1 tablet (10 mg total) by mouth 3 (three) times daily for 10 days. [facility] oxyCODONE (OXY-IR) 10 mg tablet 2022-07 00:00: 00 06-26 23:59 :00 No 10mg Take 1 tablet (10 mg total) by mouth every 8 (eight) hours as needed for up to 10 days. Max Daily Amount: 30 mg [facility] cyclobenzap rine (FLEXERIL) 10 MG tablet 2022-07 00:00: 00 06-26 23:59 :00 No 10mg Q.[id number] 3D Take 1 tablet (10 mg total) by mouth 3 (three) times daily for 10 days. [facility] oxyCODONE (OXY-IR) 10 mg tablet 2022-07 00:00: 00 06-26 23:59 :00 No 10mg Take 1 tablet (10 mg total) by mouth every 8 (eight) hours as needed for up to 10 days. Max Daily Amount: 30 mg [facility] cyclobenzap rine (FLEXERIL) 10 MG tablet 2022-07 00:00: 00 06-26 23:59 :00 No 10mg Q.[id number] 3D Take 1 tablet (10 mg total) by mouth 3 (three) times daily for 10 days. [facility] oxyCODONE (OXY-IR) 10 mg tablet 2022-07 00:00: 00 06-26 23:59 :00 No 10mg Take 1 tablet (10 mg total) by mouth every 8 (eight) hours as needed for up to 10 days. Max Daily Amount: 30 mg [facility] cyclobenzap rine (FLEXERIL) 10 MG tablet 2022-07 00:00: 00 06-26 23:59 :00 No 10mg Q.[id number] 3D Take 1 tablet (10 mg total) by mouth 3 (three) times daily for 10 days. [facility] oxyCODONE (OXY-IR) 10 mg tablet 2022-07 00:00: 00 06-26 23:59 :00 No 10mg Take 1 tablet (10 mg total) by mouth every 8 (eight) hours as needed for up to 10 days. Max Daily Amount: 30 mg [facility] cyclobenzap rine (FLEXERIL) 10 MG tablet 2022-07 00:00: 00 06-26 23:59 :00 No 10mg Q.[id number] 3D Take 1 tablet (10 mg total) by mouth 3 (three) times daily for 10 days. [facility] oxyCODONE (OXY-IR) 10 mg tablet 2022-07 00:00: 00 06-26 23:59 :00 No 10mg Take 1 tablet (10 mg total) by mouth every 8 (eight) hours as needed for up to 10 days. Max Daily Amount: 30 mg [facility] cyclobenzap rine (FLEXERIL) 10 MG tablet 2022-07 00:00: 00 06-26 23:59 :00 No 10mg Q.[id number] 3D Take 1 tablet (10 mg total) by mouth 3 (three) times daily for 10 days. [facility] oxyCODONE (OXY-IR) 10 mg tablet 2022-07 00:00: 00 06-26 23:59 :00 No 10mg Take 1 tablet (10 mg total) by mouth every 8 (eight) hours as needed for up to 10 days. Max Daily Amount: 30 mg [facility] nystatin (MYCOSTATIN ) 100,000 unit/mL suspension 2022-07 00:00: 00 06-21 23:59 :00 No [id number] Q.25D Take 5 mLs (500,000 Units total) by mouth 4 (four) times daily for 5 days. [facility] nystatin (MYCOSTATIN ) 100,000 unit/mL suspension 2022-07 00:00: 00 06-21 23:59 :00 No [id number] Q.25D Take 5 mLs (500,000 Units total) by mouth 4 (four) times daily for 5 days. [facility] nystatin (MYCOSTATIN ) 100,000 unit/mL suspension 2022-07 00:00: 00 06-21 23:59 :00 No [id number] Q.25D Take 5 mLs (500,000 Units total) by mouth 4 (four) times daily for 5 days. [facility] nystatin (MYCOSTATIN ) 100,000 unit/mL suspension 2022-07 00:00: 00 06-21 23:59 :00 No [id number] Q.25D Take 5 mLs (500,000 Units total) by mouth 4 (four) times daily for 5 days. [facility] nystatin (MYCOSTATIN ) 100,000 unit/mL suspension 2022-07 00:00: 00 06-21 23:59 :00 No [id number] Q.25D Take 5 mLs (500,000 Units total) by mouth 4 (four) times daily for 5 days. [facility] nystatin (MYCOSTATIN ) 100,000 unit/mL suspension 2022-07 00:00: 00 06-21 23:59 :00 No [id number] Q.25D Take 5 mLs (500,000 Units total) by mouth 4 (four) times daily for 5 days. [facility] nystatin (MYCOSTATIN ) 100,000 unit/mL suspension 2022-07 00:00: 00 06-21 23:59 :00 No [id number] Q.25D Take 5 mLs (500,000 Units total) by mouth 4 (four) times daily for 5 days. [facility] nystatin (MYCOSTATIN ) 100,000 unit/mL suspension 2022-07 00:00: 00 06-21 23:59 :00 No [id number] Q.25D Take 5 mLs (500,000 Units total) by mouth 4 (four) times daily for 5 days. [facility] nystatin (MYCOSTATIN ) 100,000 unit/mL suspension 2022-07 00:00: 00 06-21 23:59 :00 No [id number] Q.25D Take 5 mLs (500,000 Units total) by mouth 4 (four) times daily for 5 days. [facility] nystatin (MYCOSTATIN ) 100,000 unit/mL suspension 2022-07 00:00: 00 06-21 23:59 :00 No [id number] Q.25D Take 5 mLs (500,000 Units total) by mouth 4 (four) times daily for 5 days. [facility] nystatin (MYCOSTATIN ) 100,000 unit/mL suspension 2022-07 00:00: 00 06-21 23:59 :00 No [id number] Q.25D Take 5 mLs (500,000 Units total) by mouth 4 (four) times daily for 5 days. [facility] nystatin (MYCOSTATIN ) 100,000 unit/mL suspension 2022-07 00:00: 00 06-21 23:59 :00 No [id number] Q.25D Take 5 mLs (500,000 Units total) by mouth 4 (four) times daily for 5 days. [facility] nystatin (MYCOSTATIN ) 100,000 unit/mL suspension 2022-07 00:00: 00 06-21 23:59 :00 No [id number] Q.25D Take 5 mLs (500,000 Units total) by mouth 4 (four) times daily for 5 days. [facility] nystatin (MYCOSTATIN ) 100,000 unit/mL suspension 2022-07 00:00: 00 06-21 23:59 :00 No [id number] Q.25D Take 5 mLs (500,000 Units total) by mouth 4 (four) times daily for 5 days. [facility] nystatin (MYCOSTATIN ) 100,000 unit/mL suspension 2022-07 00:00: 00 06-21 23:59 :00 No [id number] Q.25D Take 5 mLs (500,000 Units total) by mouth 4 (four) times daily for 5 days. [facility] nystatin (MYCOSTATIN ) 100,000 unit/mL suspension 2022-07 00:00: 00 06-21 23:59 :00 No [id number] Q.25D Take 5 mLs (500,000 Units total) by mouth 4 (four) times daily for 5 days. [facility] nystatin (MYCOSTATIN ) 100,000 unit/mL suspension 2022-07 00:00: 00 06-21 23:59 :00 No [id number] Q.25D Take 5 mLs (500,000 Units total) by mouth 4 (four) times daily for 5 days. [facility] nystatin (MYCOSTATIN ) 100,000 unit/mL suspension 2022-07 00:00: 00 06-21 23:59 :00 No [id number] Q.25D Take 5 mLs (500,000 Units total) by mouth 4 (four) times daily for 5 days. [facility] nystatin (MYCOSTATIN ) 100,000 unit/mL suspension 2022-07 00:00: 00 06-21 23:59 :00 No [id number] Q.25D Take 5 mLs (500,000 Units total) by mouth 4 (four) times daily for 5 days. [facility] nystatin (MYCOSTATIN ) 100,000 unit/mL suspension 2022-07 00:00: 00 06-21 23:59 :00 No [id number] Q.25D Take 5 mLs (500,000 Units total) by mouth 4 (four) times daily for 5 days. [facility] nystatin (MYCOSTATIN ) 100,000 unit/mL suspension 2022-07 00:00: 00 06-21 23:59 :00 No [id number] Q.25D Take 5 mLs (500,000 Units total) by mouth 4 (four) times daily for 5 days. [facility] nystatin (MYCOSTATIN ) 100,000 unit/mL suspension 2022-07 00:00: 00 06-21 23:59 :00 No [id number] Q.25D Take 5 mLs (500,000 Units total) by mouth 4 (four) times daily for 5 days. [facility] nystatin (MYCOSTATIN ) 100,000 unit/mL suspension 2022-07 00:00: 00 06-21 23:59 :00 No [id number] Q.25D Take 5 mLs (500,000 Units total) by mouth 4 (four) times daily for 5 days. [facility] nystatin (MYCOSTATIN ) 100,000 unit/mL suspension 2022-07 00:00: 00 06-21 23:59 :00 No [id number] Q.25D Take 5 mLs (500,000 Units total) by mouth 4 (four) times daily for 5 days. [facility] nystatin (MYCOSTATIN ) 100,000 unit/mL suspension 2022-07 00:00: 00 06-21 23:59 :00 No [id number] Q.25D Take 5 mLs (500,000 Units total) by mouth 4 (four) times daily for 5 days. [facility] nystatin (MYCOSTATIN ) 100,000 unit/mL suspension 2022-07 00:00: 00 06-21 23:59 :00 No [id number] Q.25D Take 5 mLs (500,000 Units total) by mouth 4 (four) times daily for 5 days. [facility] dexAMETHaso ne (DECADRON) 2 MG tablet 2022-07 00:00: 00 06-08 23:59 :00 No 1mg Take 0.5 tablets (1 mg total) by mouth 2 (two) times daily with breakfast and dinner for 2 days. [facility] dexAMETHaso ne (DECADRON) 2 MG tablet 2022-07 00:00: 00 06-08 23:59 :00 No 1mg Take 0.5 tablets (1 mg total) by mouth 2 (two) times daily with breakfast and dinner for 2 days. [facility] dexAMETHaso ne (DECADRON) 2 MG tablet 2022-07 00:00: 00 06-08 23:59 :00 No 1mg Take 0.5 tablets (1 mg total) by mouth 2 (two) times daily with breakfast and dinner for 2 days. [facility] dexAMETHaso ne (DECADRON) 2 MG tablet 2022-07 00:00: 00 06-08 23:59 :00 No 1mg Take 0.5 tablets (1 mg total) by mouth 2 (two) times daily with breakfast and dinner for 2 days. [facility] dexAMETHaso ne (DECADRON) 2 MG tablet 2022-07 00:00: 00 06-08 23:59 :00 No 1mg Take 0.5 tablets (1 mg total) by mouth 2 (two) times daily with breakfast and dinner for 2 days. [facility] dexAMETHaso ne (DECADRON) 2 MG tablet 2022-07 00:00: 00 06-08 23:59 :00 No 1mg Take 0.5 tablets (1 mg total) by mouth 2 (two) times daily with breakfast and dinner for 2 days. [facility] dexAMETHaso ne (DECADRON) 2 MG tablet 2022-07 00:00: 00 06-08 23:59 :00 No 1mg Take 0.5 tablets (1 mg total) by mouth 2 (two) times daily with breakfast and dinner for 2 days. [facility] dexAMETHaso ne (DECADRON) 2 MG tablet 2022-07 00:00: 00 06-08 23:59 :00 No 1mg Take 0.5 tablets (1 mg total) by mouth 2 (two) times daily with breakfast and dinner for 2 days. [facility] dexAMETHaso ne (DECADRON) 2 MG tablet 2022-07 00:00: 00 06-08 23:59 :00 No 1mg Take 0.5 tablets (1 mg total) by mouth 2 (two) times daily with breakfast and dinner for 2 days. [facility] dexAMETHaso ne (DECADRON) 2 MG tablet 2022-07 00:00: 00 06-08 23:59 :00 No 1mg Take 0.5 tablets (1 mg total) by mouth 2 (two) times daily with breakfast and dinner for 2 days. [facility] dexAMETHaso ne (DECADRON) 2 MG tablet 2022-07 00:00: 00 06-08 23:59 :00 No 1mg Take 0.5 tablets (1 mg total) by mouth 2 (two) times daily with breakfast and dinner for 2 days. [facility] dexAMETHaso ne (DECADRON) 2 MG tablet 2022-07 00:00: 00 06-08 23:59 :00 No 1mg Take 0.5 tablets (1 mg total) by mouth 2 (two) times daily with breakfast and dinner for 2 days. [facility] dexAMETHaso ne (DECADRON) 2 MG tablet 2022-07 00:00: 00 06-08 23:59 :00 No 1mg Take 0.5 tablets (1 mg total) by mouth 2 (two) times daily with breakfast and dinner for 2 days. [facility] dexAMETHaso ne (DECADRON) 2 MG tablet 2022-07 00:00: 00 06-08 23:59 :00 No 1mg Take 0.5 tablets (1 mg total) by mouth 2 (two) times daily with breakfast and dinner for 2 days. [facility] dexAMETHaso ne (DECADRON) 2 MG tablet 2022-07 00:00: 00 06-08 23:59 :00 No 1mg Take 0.5 tablets (1 mg total) by mouth 2 (two) times daily with breakfast and dinner for 2 days. [facility] dexAMETHaso ne (DECADRON) 2 MG tablet 2022-07 00:00: 00 06-08 23:59 :00 No 1mg Take 0.5 tablets (1 mg total) by mouth 2 (two) times daily with breakfast and dinner for 2 days. [facility] dexAMETHaso ne (DECADRON) 2 MG tablet 2022-07 00:00: 00 06-08 23:59 :00 No 1mg Take 0.5 tablets (1 mg total) by mouth 2 (two) times daily with breakfast and dinner for 2 days. [facility] dexAMETHaso ne (DECADRON) 2 MG tablet 2022-07 00:00: 00 06-08 23:59 :00 No 1mg Take 0.5 tablets (1 mg total) by mouth 2 (two) times daily with breakfast and dinner for 2 days. [facility] dexAMETHaso ne (DECADRON) 2 MG tablet 2022-07 00:00: 00 06-08 23:59 :00 No 1mg Take 0.5 tablets (1 mg total) by mouth 2 (two) times daily with breakfast and dinner for 2 days. [facility] dexAMETHaso ne (DECADRON) 2 MG tablet 2022-07 00:00: 00 06-08 23:59 :00 No 1mg Take 0.5 tablets (1 mg total) by mouth 2 (two) times daily with breakfast and dinner for 2 days. [facility] dexAMETHaso ne (DECADRON) 2 MG tablet 2022-07 00:00: 00 06-08 23:59 :00 No 1mg Take 0.5 tablets (1 mg total) by mouth 2 (two) times daily with breakfast and dinner for 2 days. [facility] dexAMETHaso ne (DECADRON) 2 MG tablet 2022-07 00:00: 00 06-08 23:59 :00 No 1mg Take 0.5 tablets (1 mg total) by mouth 2 (two) times daily with breakfast and dinner for 2 days. [facility] dexAMETHaso ne (DECADRON) 2 MG tablet 2022-07 00:00: 00 06-08 23:59 :00 No 1mg Take 0.5 tablets (1 mg total) by mouth 2 (two) times daily with breakfast and dinner for 2 days. [facility] dexAMETHaso ne (DECADRON) 2 MG tablet 2022-07 00:00: 00 06-08 23:59 :00 No 1mg Take 0.5 tablets (1 mg total) by mouth 2 (two) times daily with breakfast and dinner for 2 days. [facility] dexAMETHaso ne (DECADRON) 2 MG tablet 2022-07 00:00: 00 06-08 23:59 :00 No 1mg Take 0.5 tablets (1 mg total) by mouth 2 (two) times daily with breakfast and dinner for 2 days. [facility] dexAMETHaso ne (DECADRON) 2 MG tablet 2022-07 00:00: 00 06-08 23:59 :00 No 1mg Take 0.5 tablets (1 mg total) by mouth 2 (two) times daily with breakfast and dinner for 2 days. [facility] dexAMETHaso ne (DECADRON) 2 MG tablet 2022-07 00:00: 00 06-08 23:59 :00 No 1mg Take 0.5 tablets (1 mg total) by mouth 2 (two) times daily with breakfast and dinner for 2 days. [facility] dexAMETHaso ne (DECADRON) 2 MG tablet 2022-07 00:00: 00 06-08 23:59 :00 No 1mg Take 0.5 tablets (1 mg total) by mouth 2 (two) times daily with breakfast and dinner for 2 days. [facility] dexAMETHaso ne (DECADRON) 2 MG tablet 2022-07 00:00: 00 06-08 23:59 :00 No 1mg Take 0.5 tablets (1 mg total) by mouth 2 (two) times daily with breakfast and dinner for 2 days. [facility] dexAMETHaso ne (DECADRON) 2 MG tablet 2022-07 00:00: 00 06-06 23:59 :00 No 2mg Take 1 tablet (2 mg total) by mouth 2 (two) times daily with breakfast and dinner for 1 day. [facility] dexAMETHaso ne (DECADRON) 2 MG tablet 2022-07 00:00: 00 06-06 23:59 :00 No 2mg Take 1 tablet (2 mg total) by mouth 2 (two) times daily with breakfast and dinner for 1 day. [facility] dexAMETHaso ne (DECADRON) 2 MG tablet 2022-07 00:00: 00 06-06 23:59 :00 No 2mg Take 1 tablet (2 mg total) by mouth 2 (two) times daily with breakfast and dinner for 1 day. [facility] dexAMETHaso ne (DECADRON) 2 MG tablet 2022-07 00:00: 00 06-06 23:59 :00 No 2mg Take 1 tablet (2 mg total) by mouth 2 (two) times daily with breakfast and dinner for 1 day. [facility] dexAMETHaso ne (DECADRON) 2 MG tablet 2022-07 00:00: 00 06-06 23:59 :00 No 2mg Take 1 tablet (2 mg total) by mouth 2 (two) times daily with breakfast and dinner for 1 day. [facility] dexAMETHaso ne (DECADRON) 2 MG tablet 2022-07 00:00: 00 06-06 23:59 :00 No 2mg Take 1 tablet (2 mg total) by mouth 2 (two) times daily with breakfast and dinner for 1 day. [facility] dexAMETHaso ne (DECADRON) 2 MG tablet 2022-07 00:00: 00 06-06 23:59 :00 No 2mg Take 1 tablet (2 mg total) by mouth 2 (two) times daily with breakfast and dinner for 1 day. [facility] dexAMETHaso ne (DECADRON) 2 MG tablet 2022-07 00:00: 00 06-06 23:59 :00 No 2mg Take 1 tablet (2 mg total) by mouth 2 (two) times daily with breakfast and dinner for 1 day. [facility] dexAMETHaso ne (DECADRON) 2 MG tablet 2022-07 00:00: 00 06-06 23:59 :00 No 2mg Take 1 tablet (2 mg total) by mouth 2 (two) times daily with breakfast and dinner for 1 day. [facility] dexAMETHaso ne (DECADRON) 2 MG tablet 2022-07 00:00: 00 06-06 23:59 :00 No 2mg Take 1 tablet (2 mg total) by mouth 2 (two) times daily with breakfast and dinner for 1 day. [facility] dexAMETHaso ne (DECADRON) 2 MG tablet 2022-07 00:00: 00 06-06 23:59 :00 No 2mg Take 1 tablet (2 mg total) by mouth 2 (two) times daily with breakfast and dinner for 1 day. [facility] dexAMETHaso ne (DECADRON) 2 MG tablet 2022-07 00:00: 00 06-06 23:59 :00 No 2mg Take 1 tablet (2 mg total) by mouth 2 (two) times daily with breakfast and dinner for 1 day. [facility] dexAMETHaso ne (DECADRON) 2 MG tablet 2022-07 00:00: 00 06-06 23:59 :00 No 2mg Take 1 tablet (2 mg total) by mouth 2 (two) times daily with breakfast and dinner for 1 day. [facility] dexAMETHaso ne (DECADRON) 2 MG tablet 2022-07 00:00: 00 06-06 23:59 :00 No 2mg Take 1 tablet (2 mg total) by mouth 2 (two) times daily with breakfast and dinner for 1 day. [facility] dexAMETHaso ne (DECADRON) 2 MG tablet 2022-07 00:00: 00 06-06 23:59 :00 No 2mg Take 1 tablet (2 mg total) by mouth 2 (two) times daily with breakfast and dinner for 1 day. [facility] dexAMETHaso ne (DECADRON) 2 MG tablet 2022-07 00:00: 00 06-06 23:59 :00 No 2mg Take 1 tablet (2 mg total) by mouth 2 (two) times daily with breakfast and dinner for 1 day. [facility] dexAMETHaso ne (DECADRON) 2 MG tablet 2022-07 00:00: 00 06-06 23:59 :00 No 2mg Take 1 tablet (2 mg total) by mouth 2 (two) times daily with breakfast and dinner for 1 day. [facility] dexAMETHaso ne (DECADRON) 2 MG tablet 2022-07 00:00: 00 06-06 23:59 :00 No 2mg Take 1 tablet (2 mg total) by mouth 2 (two) times daily with breakfast and dinner for 1 day. [facility] dexAMETHaso ne (DECADRON) 2 MG tablet 2022-07 00:00: 00 06-06 23:59 :00 No 2mg Take 1 tablet (2 mg total) by mouth 2 (two) times daily with breakfast and dinner for 1 day. [facility] dexAMETHaso ne (DECADRON) 2 MG tablet 2022-07 00:00: 00 06-06 23:59 :00 No 2mg Take 1 tablet (2 mg total) by mouth 2 (two) times daily with breakfast and dinner for 1 day. [facility] dexAMETHaso ne (DECADRON) 2 MG tablet 2022-07 00:00: 00 06-06 23:59 :00 No 2mg Take 1 tablet (2 mg total) by mouth 2 (two) times daily with breakfast and dinner for 1 day. [facility] dexAMETHaso ne (DECADRON) 2 MG tablet 2022-07 00:00: 00 06-06 23:59 :00 No 2mg Take 1 tablet (2 mg total) by mouth 2 (two) times daily with breakfast and dinner for 1 day. [facility] dexAMETHaso ne (DECADRON) 2 MG tablet 2022-07 00:00: 00 06-06 23:59 :00 No 2mg Take 1 tablet (2 mg total) by mouth 2 (two) times daily with breakfast and dinner for 1 day. [facility] dexAMETHaso ne (DECADRON) 2 MG tablet 2022-07 00:00: 00 06-06 23:59 :00 No 2mg Take 1 tablet (2 mg total) by mouth 2 (two) times daily with breakfast and dinner for 1 day. [facility] dexAMETHaso ne (DECADRON) 2 MG tablet 2022-07 00:00: 00 06-06 23:59 :00 No 2mg Take 1 tablet (2 mg total) by mouth 2 (two) times daily with breakfast and dinner for 1 day. [facility] dexAMETHaso ne (DECADRON) 2 MG tablet 2022-07 00:00: 00 06-06 23:59 :00 No 2mg Take 1 tablet (2 mg total) by mouth 2 (two) times daily with breakfast and dinner for 1 day. [facility] dexAMETHaso ne (DECADRON) 2 MG tablet 2022-07 00:00: 00 06-06 23:59 :00 No 2mg Take 1 tablet (2 mg total) by mouth 2 (two) times daily with breakfast and dinner for 1 day. [facility] dexAMETHaso ne (DECADRON) 2 MG tablet 2022-07 00:00: 00 06-06 23:59 :00 No 2mg Take 1 tablet (2 mg total) by mouth 2 (two) times daily with breakfast and dinner for 1 day. [facility] dexAMETHaso ne (DECADRON) 2 MG tablet 2022-07 00:00: 00 06-06 23:59 :00 No 2mg Take 1 tablet (2 mg total) by mouth 2 (two) times daily with breakfast and dinner for 1 day. [facility] metoprolol succinate (TOPROL-XL) 25 MG 24 hr tablet 2022-07 17:44: 21 Yes 25mg QD Take 1 tablet (25 mg total) by mouth daily. [facility] varenicline (CHANTIX) 1 mg tablet 2022-07 17:44: 21 Yes 1mg Q.5D Take 1 tablet (1 mg total) by mouth 2 (two) times daily Give with meals and with a full glass of water.. [facility] albuterol HFA (VENTOLIN HFA) 90 mcg/actuati on inhaler 2022-07 17:44: 21 Yes 1{puff} Inhale 1 puff by mouth via inhaler every 6 (six) hours as needed for Wheezing. [facility] fluticasone -umeclidin- vilanter (Trelegy Ellipta) 200-62.5-25 mcg DsDv 2022-07 17:44: 21 Yes QD Inhale by mouth via inhaler daily. [facility] atorvastati n (LIPITOR) 20 MG tablet 2022-07 17:44: 21 Yes 20mg QD Take 1 tablet (20 mg total) by mouth daily. [facility] acetaminoph en-codeine (TYLENOL #3) 300-30 mg per tablet 2022-07 17:44: 21 Yes 1{tbl} Take 1 tablet by mouth every 4 (four) hours as needed for Pain. [facility] metoprolol succinate (TOPROL-XL) 25 MG 24 hr tablet 2022-07 17:44: 21 Yes 25mg QD Take 1 tablet (25 mg total) by mouth daily. [facility] varenicline (CHANTIX) 1 mg tablet 2022-07 17:44: 21 Yes 1mg Q.5D Take 1 tablet (1 mg total) by mouth 2 (two) times daily Give with meals and with a full glass of water.. [facility] albuterol HFA (VENTOLIN HFA) 90 mcg/actuati on inhaler 2022-07 17:44: 21 Yes 1{puff} Inhale 1 puff by mouth via inhaler every 6 (six) hours as needed for Wheezing. [facility] fluticasone -umeclidin- vilanter (Trelegy Ellipta) 200-62.5-25 mcg DsDv 2022-07 17:44: 21 Yes QD Inhale by mouth via inhaler daily. [facility] atorvastati n (LIPITOR) 20 MG tablet 2022-07 17:44: 21 Yes 20mg QD Take 1 tablet (20 mg total) by mouth daily. [facility] acetaminoph en-codeine (TYLENOL #3) 300-30 mg per tablet 2022-07 17:44: 21 Yes 1{tbl} Take 1 tablet by mouth every 4 (four) hours as needed for Pain. [facility] metoprolol succinate (TOPROL-XL) 25 MG 24 hr tablet 2022-07 17:44: 21 Yes 25mg QD Take 1 tablet (25 mg total) by mouth daily. [facility] varenicline (CHANTIX) 1 mg tablet 2022-07 17:44: 21 Yes 1mg Q.5D Take 1 tablet (1 mg total) by mouth 2 (two) times daily Give with meals and with a full glass of water.. [facility] albuterol HFA (VENTOLIN HFA) 90 mcg/actuati on inhaler 2022-07 17:44: 21 Yes 1{puff} Inhale 1 puff by mouth via inhaler every 6 (six) hours as needed for Wheezing. [facility] fluticasone -umeclidin- vilanter (Trelegy Ellipta) 200-62.5-25 mcg DsDv 2022-07 17:44: 21 Yes QD Inhale by mouth via inhaler daily. [facility] atorvastati n (LIPITOR) 20 MG tablet 2022-07 17:44: 21 Yes 20mg QD Take 1 tablet (20 mg total) by mouth daily. [facility] acetaminoph en-codeine (TYLENOL #3) 300-30 mg per tablet 2022-07 17:44: 21 Yes 1{tbl} Take 1 tablet by mouth every 4 (four) hours as needed for Pain. [facility] Naloxone (NARCAN) 4 MG/0.1ML nasal Liquid 2022-07 00:00: 00 Yes 4mg 0.1 mL (4 mg total) as needed. [facility]thia gonzalez senna (SENOKOT) 8.6 mg tablet 2022-07 00:00: 00 06-18 23:59 :00 No 17.2mg Q.5D Take 2 tablets (17.2 mg total) by mouth 2 (two) times daily for 14 days. [facility] senna (SENOKOT) 8.6 mg tablet 2022-07 00:00: 00 06-18 23:59 :00 No 17.2mg Q.5D Take 2 tablets (17.2 mg total) by mouth 2 (two) times daily for 14 days. [facility] senna (SENOKOT) 8.6 mg tablet 2022-07 00:00: 00 06-18 23:59 :00 No 17.2mg Q.5D Take 2 tablets (17.2 mg total) by mouth 2 (two) times daily for 14 days. [facility] senna (SENOKOT) 8.6 mg tablet 2022-07 00:00: 00 06-18 23:59 :00 No 17.2mg Q.5D Take 2 tablets (17.2 mg total) by mouth 2 (two) times daily for 14 days. [facility] senna (SENOKOT) 8.6 mg tablet 2022-07 00:00: 00 06-18 23:59 :00 No 17.2mg Q.5D Take 2 tablets (17.2 mg total) by mouth 2 (two) times daily for 14 days. [facility] senna (SENOKOT) 8.6 mg tablet 2022-07 00:00: 00 06-18 23:59 :00 No 17.2mg Q.5D Take 2 tablets (17.2 mg total) by mouth 2 (two) times daily for 14 days. [facility] senna (SENOKOT) 8.6 mg tablet 2022-07 00:00: 00 06-18 23:59 :00 No 17.2mg Q.5D Take 2 tablets (17.2 mg total) by mouth 2 (two) times daily for 14 days. [facility] senna (SENOKOT) 8.6 mg tablet 2022-07 00:00: 00 06-18 23:59 :00 No 17.2mg Q.5D Take 2 tablets (17.2 mg total) by mouth 2 (two) times daily for 14 days. [facility] senna (SENOKOT) 8.6 mg tablet 2022-07 00:00: 00 06-18 23:59 :00 No 17.2mg Q.5D Take 2 tablets (17.2 mg total) by mouth 2 (two) times daily for 14 days. [facility] senna (SENOKOT) 8.6 mg tablet 2022-07 00:00: 00 06-18 23:59 :00 No 17.2mg Q.5D Take 2 tablets (17.2 mg total) by mouth 2 (two) times daily for 14 days. [facility] senna (SENOKOT) 8.6 mg tablet 2022-07 00:00: 00 06-18 23:59 :00 No 17.2mg Q.5D Take 2 tablets (17.2 mg total) by mouth 2 (two) times daily for 14 days. [facility] senna (SENOKOT) 8.6 mg tablet 2022-07 00:00: 00 06-18 23:59 :00 No 17.2mg Q.5D Take 2 tablets (17.2 mg total) by mouth 2 (two) times daily for 14 days. [facility] senna (SENOKOT) 8.6 mg tablet 2022-0716 00:00: 00 06-18 23:59 :00 No 17.2mg Q.5D Take 2 tablets (17.2 mg total) by mouth 2 (two) times daily for 14 days. [facility] senna (SENOKOT) 8.6 mg tablet 2022-0716 00:00: 00 06-18 23:59 :00 No 17.2mg Q.5D Take 2 tablets (17.2 mg total) by mouth 2 (two) times daily for 14 days. [facility] senna (SENOKOT) 8.6 mg tablet 2022-0716 00:00: 00 06-18 23:59 :00 No 17.2mg Q.5D Take 2 tablets (17.2 mg total) by mouth 2 (two) times daily for 14 days. [facility] senna (SENOKOT) 8.6 mg tablet 2022-07 00:00: 00 06-18 23:59 :00 No 17.2mg Q.5D Take 2 tablets (17.2 mg total) by mouth 2 (two) times daily for 14 days. [facility] senna (SENOKOT) 8.6 mg tablet 2022-07 00:00: 00 06-18 23:59 :00 No 17.2mg Q.5D Take 2 tablets (17.2 mg total) by mouth 2 (two) times daily for 14 days. [facility] senna (SENOKOT) 8.6 mg tablet 2022-07 00:00: 00 06-18 23:59 :00 No 17.2mg Q.5D Take 2 tablets (17.2 mg total) by mouth 2 (two) times daily for 14 days. [facility] senna (SENOKOT) 8.6 mg tablet 2022-0716 00:00: 00 06-18 23:59 :00 No 17.2mg Q.5D Take 2 tablets (17.2 mg total) by mouth 2 (two) times daily for 14 days. [facility] senna (SENOKOT) 8.6 mg tablet 2022-0716 00:00: 00 06-18 23:59 :00 No 17.2mg Q.5D Take 2 tablets (17.2 mg total) by mouth 2 (two) times daily for 14 days. [facility] senna (SENOKOT) 8.6 mg tablet 2022-0716 00:00: 00 06-18 23:59 :00 No 17.2mg Q.5D Take 2 tablets (17.2 mg total) by mouth 2 (two) times daily for 14 days. [facility] senna (SENOKOT) 8.6 mg tablet 2022-0716 00:00: 00 06-18 23:59 :00 No 17.2mg Q.5D Take 2 tablets (17.2 mg total) by mouth 2 (two) times daily for 14 days. [facility] senna (SENOKOT) 8.6 mg tablet 2022-07 00:00: 00 06-18 23:59 :00 No 17.2mg Q.5D Take 2 tablets (17.2 mg total) by mouth 2 (two) times daily for 14 days. [facility] senna (SENOKOT) 8.6 mg tablet 2022-07 00:00: 00 06-18 23:59 :00 No 17.2mg Q.5D Take 2 tablets (17.2 mg total) by mouth 2 (two) times daily for 14 days. [facility] senna (SENOKOT) 8.6 mg tablet 2022-07 00:00: 00 06-18 23:59 :00 No 17.2mg Q.5D Take 2 tablets (17.2 mg total) by mouth 2 (two) times daily for 14 days. [facility] senna (SENOKOT) 8.6 mg tablet 2022-0716 00:00: 00 06-18 23:59 :00 No 17.2mg Q.5D Take 2 tablets (17.2 mg total) by mouth 2 (two) times daily for 14 days. [facility] senna (SENOKOT) 8.6 mg tablet 2022-0716 00:00: 00 06-18 23:59 :00 No 17.2mg Q.5D Take 2 tablets (17.2 mg total) by mouth 2 (two) times daily for 14 days. [facility] senna (SENOKOT) 8.6 mg tablet 2022-07 00:00: 00 06-18 23:59 :00 No 17.2mg Q.5D Take 2 tablets (17.2 mg total) by mouth 2 (two) times daily for 14 days. [facility] senna (SENOKOT) 8.6 mg tablet 2022-07 00:00: 00 06-18 23:59 :00 No 17.2mg Q.5D Take 2 tablets (17.2 mg total) by mouth 2 (two) times daily for 14 days. [facility] cyclobenzap rine (FLEXERIL) 10 MG tablet 2022-07 00:00: 00 06-16 00:00 :00 No 10mg Q.[id number] 3D Take 1 tablet (10 mg total) by mouth 3 (three) times daily for 10 days. [facility] methocarbam oL (ROBAXIN) 500 MG tablet 2022-07 00:00: 00 06-16 00:00 :00 No 500mg Q.25D Take 1 tablet (500 mg total) by mouth 4 (four) times daily for 10 days. [facility] cyclobenzap rine (FLEXERIL) 10 MG tablet 2022-07 00:00: 00 06-16 00:00 :00 No 10mg Q.02416932 [id number] 3D Take 1 tablet (10 mg total) by mouth 3 (three) times daily for 10 days. [facility] methocarbam oL (ROBAXIN) 500 MG tablet 2022-07 00:00: 00 06-16 00:00 :00 No 500mg Q.25D Take 1 tablet (500 mg total) by mouth 4 (four) times daily for 10 days. [facility] cyclobenzap rine (FLEXERIL) 10 MG tablet 2022-07 00:00: 00 06-16 00:00 :00 No 10mg Q.89959620 [id number] 3D Take 1 tablet (10 mg total) by mouth 3 (three) times daily for 10 days. [facility] methocarbam oL (ROBAXIN) 500 MG tablet 2022-07 00:00: 00 06-16 00:00 :00 No 500mg Q.25D Take 1 tablet (500 mg total) by mouth 4 (four) times daily for 10 days. [facility] cyclobenzap rine (FLEXERIL) 10 MG tablet 2022-07 00:00: 00 06-16 00:00 :00 No 10mg Q.66304123 [id number] 3D Take 1 tablet (10 mg total) by mouth 3 (three) times daily for 10 days. [facility] methocarbam oL (ROBAXIN) 500 MG tablet 2022-07 00:00: 00 06-16 00:00 :00 No 500mg Q.25D Take 1 tablet (500 mg total) by mouth 4 (four) times daily for 10 days. [facility] cyclobenzap rine (FLEXERIL) 10 MG tablet 2022-07 00:00: 00 06-16 00:00 :00 No 10mg Q.71939725 [id number] 3D Take 1 tablet (10 mg total) by mouth 3 (three) times daily for 10 days. [facility] methocarbam oL (ROBAXIN) 500 MG tablet 2022-07 00:00: 00 06-16 00:00 :00 No 500mg Q.25D Take 1 tablet (500 mg total) by mouth 4 (four) times daily for 10 days. [facility] cyclobenzap rine (FLEXERIL) 10 MG tablet 2022-07 00:00: 00 06-16 00:00 :00 No 10mg Q.14718550 [id number] 3D Take 1 tablet (10 mg total) by mouth 3 (three) times daily for 10 days. [facility] methocarbam oL (ROBAXIN) 500 MG tablet 2022-07 00:00: 00 06-16 00:00 :00 No 500mg Q.25D Take 1 tablet (500 mg total) by mouth 4 (four) times daily for 10 days. [facility] cyclobenzap rine (FLEXERIL) 10 MG tablet 2022-07 00:00: 00 06-16 00:00 :00 No 10mg Q.94286350 [id number] 3D Take 1 tablet (10 mg total) by mouth 3 (three) times daily for 10 days. [facility] methocarbam oL (ROBAXIN) 500 MG tablet 2022-07 00:00: 00 06-16 00:00 :00 No 500mg Q.25D Take 1 tablet (500 mg total) by mouth 4 (four) times daily for 10 days. [facility] cyclobenzap rine (FLEXERIL) 10 MG tablet 2022-07 00:00: 00 06-16 00:00 :00 No 10mg Q.51994218 [id number] 3D Take 1 tablet (10 mg total) by mouth 3 (three) times daily for 10 days. [facility] methocarbam oL (ROBAXIN) 500 MG tablet 2022-07 00:00: 00 06-16 00:00 :00 No 500mg Q.25D Take 1 tablet (500 mg total) by mouth 4 (four) times daily for 10 days. [facility] cyclobenzap rine (FLEXERIL) 10 MG tablet 2022-07 00:00: 00 06-16 00:00 :00 No 10mg Q.71039761 [id number] 3D Take 1 tablet (10 mg total) by mouth 3 (three) times daily for 10 days. [facility] methocarbam oL (ROBAXIN) 500 MG tablet 2022-07 00:00: 00 06-16 00:00 :00 No 500mg Q.25D Take 1 tablet (500 mg total) by mouth 4 (four) times daily for 10 days. [facility] cyclobenzap rine (FLEXERIL) 10 MG tablet 2022-07 00:00: 00 06-16 00:00 :00 No 10mg Q.76361091 [id number] 3D Take 1 tablet (10 mg total) by mouth 3 (three) times daily for 10 days. [facility] methocarbam oL (ROBAXIN) 500 MG tablet 2022-07 00:00: 00 06-16 00:00 :00 No 500mg Q.25D Take 1 tablet (500 mg total) by mouth 4 (four) times daily for 10 days. [facility] cyclobenzap rine (FLEXERIL) 10 MG tablet 2022-07 00:00: 00 06-16 00:00 :00 No 10mg Q.64648717 [id number] 3D Take 1 tablet (10 mg total) by mouth 3 (three) times daily for 10 days. [facility] methocarbam oL (ROBAXIN) 500 MG tablet 2022-07 00:00: 00 06-16 00:00 :00 No 500mg Q.25D Take 1 tablet (500 mg total) by mouth 4 (four) times daily for 10 days. [facility] cyclobenzap rine (FLEXERIL) 10 MG tablet 2022-07 00:00: 00 06-16 00:00 :00 No 10mg Q.15179028 [id number] 3D Take 1 tablet (10 mg total) by mouth 3 (three) times daily for 10 days. [facility] methocarbam oL (ROBAXIN) 500 MG tablet 2022-07 00:00: 00 06-16 00:00 :00 No 500mg Q.25D Take 1 tablet (500 mg total) by mouth 4 (four) times daily for 10 days. [facility] cyclobenzap rine (FLEXERIL) 10 MG tablet 2022-07 00:00: 00 06-16 00:00 :00 No 10mg Q.34339180 [id number] 3D Take 1 tablet (10 mg total) by mouth 3 (three) times daily for 10 days. [facility] methocarbam oL (ROBAXIN) 500 MG tablet 2022-07 00:00: 00 06-16 00:00 :00 No 500mg Q.25D Take 1 tablet (500 mg total) by mouth 4 (four) times daily for 10 days. [facility] cyclobenzap rine (FLEXERIL) 10 MG tablet 2022-07 00:00: 00 06-16 00:00 :00 No 10mg Q.15167441 [id number] 3D Take 1 tablet (10 mg total) by mouth 3 (three) times daily for 10 days. [facility] methocarbam oL (ROBAXIN) 500 MG tablet 2022-07 00:00: 00 06-16 00:00 :00 No 500mg Q.25D Take 1 tablet (500 mg total) by mouth 4 (four) times daily for 10 days. [facility] cyclobenzap rine (FLEXERIL) 10 MG tablet 2022-07 00:00: 00 06-16 00:00 :00 No 10mg Q.61066016 [id number] 3D Take 1 tablet (10 mg total) by mouth 3 (three) times daily for 10 days. [facility] methocarbam oL (ROBAXIN) 500 MG tablet 2022-07 00:00: 00 06-16 00:00 :00 No 500mg Q.25D Take 1 tablet (500 mg total) by mouth 4 (four) times daily for 10 days. [facility] cyclobenzap rine (FLEXERIL) 10 MG tablet 2022-07 00:00: 00 06-16 00:00 :00 No 10mg Q.94069901 [id number] 3D Take 1 tablet (10 mg total) by mouth 3 (three) times daily for 10 days. [facility] methocarbam oL (ROBAXIN) 500 MG tablet 2022-07 00:00: 00 06-16 00:00 :00 No 500mg Q.25D Take 1 tablet (500 mg total) by mouth 4 (four) times daily for 10 days. [facility] cyclobenzap rine (FLEXERIL) 10 MG tablet 2022-07 00:00: 00 06-16 00:00 :00 No 10mg Q.71314099 [id number] 3D Take 1 tablet (10 mg total) by mouth 3 (three) times daily for 10 days. [facility] methocarbam oL (ROBAXIN) 500 MG tablet 2022-07 00:00: 00 06-16 00:00 :00 No 500mg Q.25D Take 1 tablet (500 mg total) by mouth 4 (four) times daily for 10 days. [facility] cyclobenzap rine (FLEXERIL) 10 MG tablet 2022-07 00:00: 00 06-16 00:00 :00 No 10mg Q.04291766 [id number] 3D Take 1 tablet (10 mg total) by mouth 3 (three) times daily for 10 days. [facility] methocarbam oL (ROBAXIN) 500 MG tablet 2022-07 00:00: 00 06-16 00:00 :00 No 500mg Q.25D Take 1 tablet (500 mg total) by mouth 4 (four) times daily for 10 days. [facility] cyclobenzap rine (FLEXERIL) 10 MG tablet 2022-07 00:00: 00 06-16 00:00 :00 No 10mg Q.85521097 [id number] 3D Take 1 tablet (10 mg total) by mouth 3 (three) times daily for 10 days. [facility] methocarbam oL (ROBAXIN) 500 MG tablet 2022-07 00:00: 00 06-16 00:00 :00 No 500mg Q.25D Take 1 tablet (500 mg total) by mouth 4 (four) times daily for 10 days. [facility] cyclobenzap rine (FLEXERIL) 10 MG tablet 2022-07 00:00: 00 06-16 00:00 :00 No 10mg Q.84620170 [id number] 3D Take 1 tablet (10 mg total) by mouth 3 (three) times daily for 10 days. [facility] methocarbam oL (ROBAXIN) 500 MG tablet 2022-07 00:00: 00 06-16 00:00 :00 No 500mg Q.25D Take 1 tablet (500 mg total) by mouth 4 (four) times daily for 10 days. [facility] cyclobenzap rine (FLEXERIL) 10 MG tablet 2022-07 00:00: 00 06-16 00:00 :00 No 10mg Q.[id number] [id number] 3D Take 1 tablet (10 mg total) by mouth 3 (three) times daily for 10 days. [facility] methocarbam oL (ROBAXIN) 500 MG tablet 2022-07 00:00: 00 06-16 00:00 :00 No 500mg Q.25D Take 1 tablet (500 mg total) by mouth 4 (four) times daily for 10 days. [facility] cyclobenzap rine (FLEXERIL) 10 MG tablet 2022-07 00:00: 00 06-16 00:00 :00 No 10mg Q.[id number] 3D Take 1 tablet (10 mg total) by mouth 3 (three) times daily for 10 days. [facility] methocarbam oL (ROBAXIN) 500 MG tablet 2022-07 00:00: 00 06-16 00:00 :00 No 500mg Q.25D Take 1 tablet (500 mg total) by mouth 4 (four) times daily for 10 days. [facility] cyclobenzap rine (FLEXERIL) 10 MG tablet 2022-07 00:00: 00 06-16 00:00 :00 No 10mg Q.[id number] 3D Take 1 tablet (10 mg total) by mouth 3 (three) times daily for 10 days. [facility] methocarbam oL (ROBAXIN) 500 MG tablet 2022-07 00:00: 00 06-16 00:00 :00 No 500mg Q.25D Take 1 tablet (500 mg total) by mouth 4 (four) times daily for 10 days. [facility] cyclobenzap rine (FLEXERIL) 10 MG tablet 2022-07 00:00: 00 06-16 00:00 :00 No 10mg Q.16357414 [id number] 3D Take 1 tablet (10 mg total) by mouth 3 (three) times daily for 10 days. [facility] methocarbam oL (ROBAXIN) 500 MG tablet 2022-07 00:00: 00 06-16 00:00 :00 No 500mg Q.25D Take 1 tablet (500 mg total) by mouth 4 (four) times daily for 10 days. [facility] cyclobenzap rine (FLEXERIL) 10 MG tablet 2022-07 00:00: 00 06-16 00:00 :00 No 10mg Q.34882614 [id number] 3D Take 1 tablet (10 mg total) by mouth 3 (three) times daily for 10 days. [facility] methocarbam oL (ROBAXIN) 500 MG tablet 2022-07 00:00: 00 06-16 00:00 :00 No 500mg Q.25D Take 1 tablet (500 mg total) by mouth 4 (four) times daily for 10 days. [facility] cyclobenzap rine (FLEXERIL) 10 MG tablet 2022-07 00:00: 00 06-16 00:00 :00 No 10mg Q.[id number] 3D Take 1 tablet (10 mg total) by mouth 3 (three) times daily for 10 days. [facility] methocarbam oL (ROBAXIN) 500 MG tablet 2022-07 00:00: 00 06-16 00:00 :00 No 500mg Q.25D Take 1 tablet (500 mg total) by mouth 4 (four) times daily for 10 days. [facility] cyclobenzap rine (FLEXERIL) 10 MG tablet 2022-07 00:00: 00 06-14 23:59 :00 No 10mg Q.[id number] 3D Take 1 tablet (10 mg total) by mouth 3 (three) times daily for 10 days. [facility] methocarbam oL (ROBAXIN) 500 MG tablet 2022-07 00:00: 00 06-14 23:59 :00 No 500mg Q.25D Take 1 tablet (500 mg total) by mouth 4 (four) times daily for 10 days. [facility] cyclobenzap rine (FLEXERIL) 10 MG tablet 2022-07 00:00: 00 06-14 23:59 :00 No 10mg Q.[id number] 3D Take 1 tablet (10 mg total) by mouth 3 (three) times daily for 10 days. [facility] methocarbam oL (ROBAXIN) 500 MG tablet 2022-07 00:00: 00 06-14 23:59 :00 No 500mg Q.25D Take 1 tablet (500 mg total) by mouth 4 (four) times daily for 10 days. [facility] cyclobenzap rine (FLEXERIL) 10 MG tablet 2022-07 00:00: 00 06-14 23:59 :00 No 10mg Q.[id number] [id number] 3D Take 1 tablet (10 mg total) by mouth 3 (three) times daily for 10 days. [facility] methocarbam oL (ROBAXIN) 500 MG tablet 2022-07 00:00: 00 06-14 23:59 :00 No 500mg Q.25D Take 1 tablet (500 mg total) by mouth 4 (four) times daily for 10 days. [facility] lactulose (CHRONULAC) 20 gram/30 mL solution 2022-07 00:00: 00 06-11 23:59 :00 No 20g Q.[id number] 3D Take 30 mLs (20 g total) by mouth 3 (three) times daily for 7 days. [facility] ondansetron (ZOFRAN-ODT ) 4 MG disintegrat ing tablet 2022-07 00:00: 00 06-11 23:59 :00 No 4mg Take 1 tablet (4 mg total) by mouth every 6 (six) hours as needed for up to 7 days. [facility] lactulose (CHRONULAC) 20 gram/30 mL solution 2022-07 00:00: 00 06-11 23:59 :00 No 20g Q.[id number] 3D Take 30 mLs (20 g total) by mouth 3 (three) times daily for 7 days. [facility] ondansetron (ZOFRAN-ODT ) 4 MG disintegrat ing tablet 2022-07 00:00: 00 06-11 23:59 :00 No 4mg Take 1 tablet (4 mg total) by mouth every 6 (six) hours as needed for up to 7 days. [facility] lactulose (CHRONULAC) 20 gram/30 mL solution 2022-07 00:00: 00 06-11 23:59 :00 No 20g Q.95135141 [id number] 3D Take 30 mLs (20 g total) by mouth 3 (three) times daily for 7 days. [facility] ondansetron (ZOFRAN-ODT ) 4 MG disintegrat ing tablet 2022-07 00:00: 00 06-11 23:59 :00 No 4mg Take 1 tablet (4 mg total) by mouth every 6 (six) hours as needed for up to 7 days. [facility] lactulose (CHRONULAC) 20 gram/30 mL solution 2022-07 00:00: 00 06-11 23:59 :00 No 20g Q.[id number] 3D Take 30 mLs (20 g total) by mouth 3 (three) times daily for 7 days. [facility] ondansetron (ZOFRAN-ODT ) 4 MG disintegrat ing tablet 2022-07 00:00: 00 06-11 23:59 :00 No 4mg Take 1 tablet (4 mg total) by mouth every 6 (six) hours as needed for up to 7 days. [facility] lactulose (CHRONULAC) 20 gram/30 mL solution 2022-07 00:00: 00 06-11 23:59 :00 No 20g Q.[id number] [id number] 3D Take 30 mLs (20 g total) by mouth 3 (three) times daily for 7 days. [facility] ondansetron (ZOFRAN-ODT ) 4 MG disintegrat ing tablet 2022-07 00:00: 00 06-11 23:59 :00 No 4mg Take 1 tablet (4 mg total) by mouth every 6 (six) hours as needed for up to 7 days. [facility] lactulose (CHRONULAC) 20 gram/30 mL solution 2022-07 00:00: 00 06-11 23:59 :00 No 20g Q.[id number] 3D Take 30 mLs (20 g total) by mouth 3 (three) times daily for 7 days. [facility] ondansetron (ZOFRAN-ODT ) 4 MG disintegrat ing tablet 2022-07 00:00: 00 06-11 23:59 :00 No 4mg Take 1 tablet (4 mg total) by mouth every 6 (six) hours as needed for up to 7 days. [facility] lactulose (CHRONULAC) 20 gram/30 mL solution 2022-07 00:00: 00 06-11 23:59 :00 No 20g Q.71764714 [id number] 3D Take 30 mLs (20 g total) by mouth 3 (three) times daily for 7 days. [facility] ondansetron (ZOFRAN-ODT ) 4 MG disintegrat ing tablet 2022-07 00:00: 00 06-11 23:59 :00 No 4mg Take 1 tablet (4 mg total) by mouth every 6 (six) hours as needed for up to 7 days. [facility] lactulose (CHRONULAC) 20 gram/30 mL solution 2022-07 00:00: 00 06-11 23:59 :00 No 20g Q.51865938 [id number] 3D Take 30 mLs (20 g total) by mouth 3 (three) times daily for 7 days. [facility] ondansetron (ZOFRAN-ODT ) 4 MG disintegrat ing tablet 2022-07 00:00: 00 06-11 23:59 :00 No 4mg Take 1 tablet (4 mg total) by mouth every 6 (six) hours as needed for up to 7 days. [facility] lactulose (CHRONULAC) 20 gram/30 mL solution 2022-07 00:00: 00 06-11 23:59 :00 No 20g Q.[id number] 3D Take 30 mLs (20 g total) by mouth 3 (three) times daily for 7 days. [facility] ondansetron (ZOFRAN-ODT ) 4 MG disintegrat ing tablet 2022-07 00:00: 00 06-11 23:59 :00 No 4mg Take 1 tablet (4 mg total) by mouth every 6 (six) hours as needed for up to 7 days. [facility] lactulose (CHRONULAC) 20 gram/30 mL solution 2022-07 00:00: 00 06-11 23:59 :00 No 20g Q.[id number] [id number] 3D Take 30 mLs (20 g total) by mouth 3 (three) times daily for 7 days. [facility] ondansetron (ZOFRAN-ODT ) 4 MG disintegrat ing tablet 2022-07 00:00: 00 06-11 23:59 :00 No 4mg Take 1 tablet (4 mg total) by mouth every 6 (six) hours as needed for up to 7 days. [facility] lactulose (CHRONULAC) 20 gram/30 mL solution 2022-07 00:00: 00 06-11 23:59 :00 No 20g [id number] 3D Take 30 mLs (20 g total) by mouth 3 (three) times daily for 7 days. [facility] ondansetron (ZOFRAN-ODT ) 4 MG disintegrat ing tablet 2022-07 00:00: 00 06-11 23:59 :00 No 4mg Take 1 tablet (4 mg total) by mouth every 6 (six) hours as needed for up to 7 days. [facility] lactulose (CHRONULAC) 20 gram/30 mL solution 2022-07 00:00: 00 06-11 23:59 :00 No 20g [id number] 3D Take 30 mLs (20 g total) by mouth 3 (three) times daily for 7 days. [facility] ondansetron (ZOFRAN-ODT ) 4 MG disintegrat ing tablet 2022-07 00:00: 00 06-11 23:59 :00 No 4mg Take 1 tablet (4 mg total) by mouth every 6 (six) hours as needed for up to 7 days. [facility] lactulose (CHRONULAC) 20 gram/30 mL solution 2022-07 00:00: 00 06-11 23:59 :00 No 20g Q.[id number] 3D Take 30 mLs (20 g total) by mouth 3 (three) times daily for 7 days. [facility] ondansetron (ZOFRAN-ODT ) 4 MG disintegrat ing tablet 2022-07 00:00: 00 06-11 23:59 :00 No 4mg Take 1 tablet (4 mg total) by mouth every 6 (six) hours as needed for up to 7 days. [facility] lactulose (CHRONULAC) 20 gram/30 mL solution 2022-07 00:00: 00 06-11 23:59 :00 No 20g Q.[id number] 3D Take 30 mLs (20 g total) by mouth 3 (three) times daily for 7 days. [facility] ondansetron (ZOFRAN-ODT ) 4 MG disintegrat ing tablet 2022-07 00:00: 00 06-11 23:59 :00 No 4mg Take 1 tablet (4 mg total) by mouth every 6 (six) hours as needed for up to 7 days. [facility] lactulose (CHRONULAC) 20 gram/30 mL solution 2022-07 00:00: 00 06-11 23:59 :00 No 20g Q.[id number] 3D Take 30 mLs (20 g total) by mouth 3 (three) times daily for 7 days. [facility] ondansetron (ZOFRAN-ODT ) 4 MG disintegrat ing tablet 2022-07 00:00: 00 06-11 23:59 :00 No 4mg Take 1 tablet (4 mg total) by mouth every 6 (six) hours as needed for up to 7 days. [facility] lactulose (CHRONULAC) 20 gram/30 mL solution 2022-07 00:00: 00 06-11 23:59 :00 No 20g Q.[id number] 3D Take 30 mLs (20 g total) by mouth 3 (three) times daily for 7 days. [facility] ondansetron (ZOFRAN-ODT ) 4 MG disintegrat ing tablet 2022-07 00:00: 00 06-11 23:59 :00 No 4mg Take 1 tablet (4 mg total) by mouth every 6 (six) hours as needed for up to 7 days. [facility] lactulose (CHRONULAC) 20 gram/30 mL solution 2022-07 00:00: 00 06-11 23:59 :00 No 20g Q.[id number] 3D Take 30 mLs (20 g total) by mouth 3 (three) times daily for 7 days. [facility] ondansetron (ZOFRAN-ODT ) 4 MG disintegrat ing tablet 2022-07 00:00: 00 06-11 23:59 :00 No 4mg Take 1 tablet (4 mg total) by mouth every 6 (six) hours as needed for up to 7 days. [facility] lactulose (CHRONULAC) 20 gram/30 mL solution 2022-07 00:00: 00 06-11 23:59 :00 No 20g Q.[id number] 3D Take 30 mLs (20 g total) by mouth 3 (three) times daily for 7 days. [facility] ondansetron (ZOFRAN-ODT ) 4 MG disintegrat ing tablet 2022-07 00:00: 00 06-11 23:59 :00 No 4mg Take 1 tablet (4 mg total) by mouth every 6 (six) hours as needed for up to 7 days. [facility] lactulose (CHRONULAC) 20 gram/30 mL solution 2022-07 00:00: 00 06-11 23:59 :00 No 20g Q.[id number] 3D Take 30 mLs (20 g total) by mouth 3 (three) times daily for 7 days. [facility] ondansetron (ZOFRAN-ODT ) 4 MG disintegrat ing tablet 2022-07 00:00: 00 06-11 23:59 :00 No 4mg Take 1 tablet (4 mg total) by mouth every 6 (six) hours as needed for up to 7 days. [facility] lactulose (CHRONULAC) 20 gram/30 mL solution 2022-07 00:00: 00 06-11 23:59 :00 No 20g Q.[id number] 3D Take 30 mLs (20 g total) by mouth 3 (three) times daily for 7 days. [facility] ondansetron (ZOFRAN-ODT ) 4 MG disintegrat ing tablet 2022-07 00:00: 00 06-11 23:59 :00 No 4mg Take 1 tablet (4 mg total) by mouth every 6 (six) hours as needed for up to 7 days. [facility] lactulose (CHRONULAC) 20 gram/30 mL solution 2022-07 00:00: 00 06-11 23:59 :00 No 20g Q.[id number] 3D Take 30 mLs (20 g total) by mouth 3 (three) times daily for 7 days. [facility] ondansetron (ZOFRAN-ODT ) 4 MG disintegrat ing tablet 2022-07 00:00: 00 06-11 23:59 :00 No 4mg Take 1 tablet (4 mg total) by mouth every 6 (six) hours as needed for up to 7 days. [facility] lactulose (CHRONULAC) 20 gram/30 mL solution 2022-07 00:00: 00 06-11 23:59 :00 No 20g Q.[id number] 3D Take 30 mLs (20 g total) by mouth 3 (three) times daily for 7 days. [facility] ondansetron (ZOFRAN-ODT ) 4 MG disintegrat ing tablet 2022-07 00:00: 00 06-11 23:59 :00 No 4mg Take 1 tablet (4 mg total) by mouth every 6 (six) hours as needed for up to 7 days. [facility] lactulose (CHRONULAC) 20 gram/30 mL solution 2022-07 00:00: 00 06-11 23:59 :00 No 20g Q.[id number] 3D Take 30 mLs (20 g total) by mouth 3 (three) times daily for 7 days. [facility] ondansetron (ZOFRAN-ODT ) 4 MG disintegrat ing tablet 2022-07 00:00: 00 06-11 23:59 :00 No 4mg Take 1 tablet (4 mg total) by mouth every 6 (six) hours as needed for up to 7 days. [facility] lactulose (CHRONULAC) 20 gram/30 mL solution 2022-07 00:00: 00 06-11 23:59 :00 No 20g Q.[id number] 3D Take 30 mLs (20 g total) by mouth 3 (three) times daily for 7 days. [facility] ondansetron (ZOFRAN-ODT ) 4 MG disintegrat ing tablet 2022-07 00:00: 00 06-11 23:59 :00 No 4mg Take 1 tablet (4 mg total) by mouth every 6 (six) hours as needed for up to 7 days. [facility] lactulose (CHRONULAC) 20 gram/30 mL solution 2022-07 00:00: 00 06-11 23:59 :00 No 20g Q.[id number] 3D Take 30 mLs (20 g total) by mouth 3 (three) times daily for 7 days. [facility] ondansetron (ZOFRAN-ODT ) 4 MG disintegrat ing tablet 2022-07 00:00: 00 06-11 23:59 :00 No 4mg Take 1 tablet (4 mg total) by mouth every 6 (six) hours as needed for up to 7 days. [facility] lactulose (CHRONULAC) 20 gram/30 mL solution 2022-07 00:00: 00 06-11 23:59 :00 No 20g Q.[id number] 3D Take 30 mLs (20 g total) by mouth 3 (three) times daily for 7 days. [facility] ondansetron (ZOFRAN-ODT ) 4 MG disintegrat ing tablet 2022-07 00:00: 00 06-11 23:59 :00 No 4mg Take 1 tablet (4 mg total) by mouth every 6 (six) hours as needed for up to 7 days. [facility] lactulose (CHRONULAC) 20 gram/30 mL solution 2022-07 00:00: 00 06-11 23:59 :00 No 20g Q.[id number] 3D Take 30 mLs (20 g total) by mouth 3 (three) times daily for 7 days. [facility] ondansetron (ZOFRAN-ODT ) 4 MG disintegrat ing tablet 2022-07 00:00: 00 06-11 23:59 :00 No 4mg Take 1 tablet (4 mg total) by mouth every 6 (six) hours as needed for up to 7 days. [facility] lactulose (CHRONULAC) 20 gram/30 mL solution 2022-07 00:00: 00 06-11 23:59 :00 No 20g Q.[id number] 3D Take 30 mLs (20 g total) by mouth 3 (three) times daily for 7 days. [facility] ondansetron (ZOFRAN-ODT ) 4 MG disintegrat ing tablet 2022-07 00:00: 00 06-11 23:59 :00 No 4mg Take 1 tablet (4 mg total) by mouth every 6 (six) hours as needed for up to 7 days. [facility] lactulose (CHRONULAC) 20 gram/30 mL solution 2022-07 00:00: 00 06-11 23:59 :00 No 20g Q.[id number] 3D Take 30 mLs (20 g total) by mouth 3 (three) times daily for 7 days. [facility] ondansetron (ZOFRAN-ODT ) 4 MG disintegrat ing tablet 2022-07 00:00: 00 06-11 23:59 :00 No 4mg Take 1 tablet (4 mg total) by mouth every 6 (six) hours as needed for up to 7 days. [facility] metoprolol succinate (TOPROL-XL) 25 MG 24 hr tablet 2022-07 15:23: 22 Yes 25mg QD Take 1 tablet (25 mg total) by mouth daily. [facility] varenicline (CHANTIX) 1 mg tablet 2022-07 15:23: 22 Yes 1mg Q.5D Take 1 tablet (1 mg total) by mouth 2 (two) times daily Give with meals and with a full glass of water.. [facility] albuterol HFA (VENTOLIN HFA) 90 mcg/actuati on inhaler 2022-07 15:23: 22 Yes 1{puff} Inhale 1 puff by mouth via inhaler every 6 (six) hours as needed for Wheezing. [facility] fluticasone -umeclidin- vilanter (Trelegy Ellipta) 200-62.5-25 mcg DsDv 2022-07 15:23: 22 Yes QD Inhale by mouth via inhaler daily. [facility] atorvastati n (LIPITOR) 20 MG tablet 2022-07 15:23: 22 Yes 20mg QD Take 1 tablet (20 mg total) by mouth daily. [facility] acetaminoph en-codeine (TYLENOL #3) 300-30 mg per tablet 2022-07 15:23: 22 Yes 1{tbl} Take 1 tablet by mouth every 4 (four) hours as needed for Pain. [facility] acetaminoph en-codeine (TYLENOL #3) 300-30 mg per tablet 2022-07 09:42: 02 Yes 1{tbl} Take 1 tablet by mouth every 4 (four) hours as needed for Pain. Max Daily Amount: 6 tablets [facility] acetaminoph en-codeine (TYLENOL #3) 300-30 mg per tablet 2022-07 09:42: 02 Yes 1{tbl} Take 1 tablet by mouth every 4 (four) hours as needed for Pain. Max Daily Amount: 6 tablets [facility] varenicline (CHANTIX) 1 mg tablet 2022-07 09:40: 04 Yes 1mg Q.5D Take 1 tablet (1 mg total) by mouth 2 (two) times daily Give with meals and with a full glass of water.. [facility] albuterol HFA (VENTOLIN HFA) 90 mcg/actuati on inhaler 2022-07 09:40: 04 Yes 1{puff} Inhale 1 puff by mouth via inhaler every 6 (six) hours as needed for Wheezing. [facility] fluticasone -umeclidin- vilanter (Trelegy Ellipta) 200-62.5-25 mcg DsDv 2022-07 09:40: 04 Yes QD Inhale by mouth via inhaler daily. [facility] atorvastati n (LIPITOR) 20 MG tablet 2022-07 09:40: 04 Yes 20mg QD Take 1 tablet (20 mg total) by mouth daily. [facility] varenicline (CHANTIX) 1 mg tablet 2022-07 09:40: 04 Yes 1mg Q.5D Take 1 tablet (1 mg total) by mouth 2 (two) times daily Give with meals and with a full glass of water.. [facility] albuterol HFA (VENTOLIN HFA) 90 mcg/actuati on inhaler 2022-07 09:40: 04 Yes 1{puff} Inhale 1 puff by mouth via inhaler every 6 (six) hours as needed for Wheezing. [facility] fluticasone -umeclidin- vilanter (Trelegy Ellipta) 200-62.5-25 mcg DsDv 2022-07 09:40: 04 Yes QD Inhale by mouth via inhaler daily. [facility] atorvastati n (LIPITOR) 20 MG tablet 2022-07 09:40: 04 Yes 20mg QD Take 1 tablet (20 mg total) by mouth daily. [facility] metoprolol succinate (TOPROL-XL) 25 MG 24 hr tablet 2022-07 09:13: 28 Yes 25mg QD Take 1 tablet (25 mg total) by mouth daily. [facility] metoprolol succinate (TOPROL-XL) 25 MG 24 hr tablet 2022-07 09:13: 28 Yes 25mg QD Take 1 tablet (25 mg total) by mouth daily. [facility] Atorvastati n Calcium 20 MG oral Tablet 2022-07 00:00: 00 Yes 20mg Take 1 tablet (20 mg total) by mouth daily. [facility] gonz[facility] Metoprolol Succinate 25 MG oral TABLET SR 24 HR 2022-07 00:00: 00 Yes 25mg Take 1 tablet (25 mg total) by mouth daily. [facility]thia Schmitz l Furosemide 40 MG oral Tablet 2022-07 00:00: 00 Yes 40mg 1 tablet (40 mg total). [facility]thia gonzalez Nitroglycer in 0.4 MG sublingual SL Tab 2022-07 00:00: 00 Yes .4mg 1 tablet (0.4 mg total). [facility]thia gonzalez Aspirin 81 MG oral Chewable Tablet 2022-07 0-16 00:00: 00 Yes 81mg 1 tablet (81 mg total). Cynthia Erazostalin gonzalez Fluticasone -Umeclidin- Vilant (Trelegy Ellipta) 100-62.5-25 [...] tablet (20 mg total) by mouth daily. [facility] furosemide (LASIX) 20 MG tablet 04-03 00:00: 00 04-02 23:59 :00 No 20mg QD Take 1 tablet (20 mg total) by mouth daily. [facility] DULoxetine (CYMBALTA) 30 MG capsule 04-03 00:00: 00 04-02 23:59 :00 No 30mg QD Take 1 capsule (30 mg total) by mouth daily. [facility] furosemide (LASIX) 20 MG tablet 04-03 00:00: 00 04-02 23:59 :00 No 20mg QD Take 1 tablet (20 mg total) by mouth daily. [facility] lisinopriL (PRINIVIL,Z ESTRIL) 5 MG tablet 04-03 00:00: 00 04-02 23:59 :00 No 5mg QD Take 1 tablet (5 mg total) by mouth daily. [facility] furosemide (LASIX) 20 MG tablet 04-03 00:00: 00 04-02 23:59 :00 No 20mg QD Take 1 tablet (20 mg total) by mouth daily. [facility] furosemide (LASIX) 20 MG tablet 04-03 00:00: 00 04-02 23:59 :00 No 20mg QD Take 1 tablet (20 mg total) by mouth daily. [facility] furosemide (LASIX) 20 MG tablet -15 00:00: 00 04-02 23:59 :00 No 20mg QD Take 1 tablet (20 mg total) by mouth daily. [facility] furosemide (LASIX) 20 MG tablet -15 00:00: 00 04-02 23:59 :00 No 20mg QD Take 1 tablet (20 mg total) by mouth daily. [facility] furosemide (LASIX) 20 MG tablet -15 00:00: 00 04-02 23:59 :00 No 20mg QD Take 1 tablet (20 mg total) by mouth daily. [facility] furosemide (LASIX) 20 MG tablet 04-03 00:00: 00 04-02 23:59 :00 No 20mg QD Take 1 tablet (20 mg total) by mouth daily. [facility] DULoxetine (CYMBALTA) 30 MG capsule 04-03 00:00: 00 04-02 23:59 :00 No 30mg QD Take 1 capsule (30 mg total) by mouth daily. [facility] furosemide (LASIX) 20 MG tablet 04-03 00:00: 00 04-02 23:59 :00 No 20mg QD Take 1 tablet (20 mg total) by mouth daily. [facility] lisinopriL (PRINIVIL,Z ESTRIL) 5 MG tablet 15 00:00: 00 04-02 23:59 :00 No 5mg QD Take 1 tablet (5 mg total) by mouth daily. [facility] furosemide (LASIX) 20 MG tablet -15 00:00: 00 04-02 23:59 :00 No 20mg QD Take 1 tablet (20 mg total) by mouth daily. [facility] furosemide (LASIX) 20 MG tablet 0 -15 00:00: 00 04-02 23:59 :00 No 20mg QD Take 1 tablet (20 mg total) by mouth daily. [facility] furosemide (LASIX) 20 MG tablet 2022-0 -15 00:00: 00 04-02 23:59 :00 No 20mg QD Take 1 tablet (20 mg total) by mouth daily. [facility] furosemide (LASIX) 20 MG tablet 2022-0 -15 00:00: 00 04-02 23:59 :00 No 20mg QD Take 1 tablet (20 mg total) by mouth daily. [facility] furosemide (LASIX) 20 MG tablet 0 -15 00:00: 00 04-02 23:59 :00 No 20mg QD Take 1 tablet (20 mg total) by mouth daily. [facility] furosemide (LASIX) 20 MG tablet 0 -15 00:00: 00 04-02 23:59 :00 No 20mg QD Take 1 tablet (20 mg total) by mouth daily. [facility] furosemide (LASIX) 20 MG tablet 0 15 00:00: 00 04-02 23:59 :00 No 20mg QD Take 1 tablet (20 mg total) by mouth daily. [facility] DULoxetine (CYMBALTA) 30 MG capsule - 00:00: 00 04-02 23:59 :00 No 30mg QD Take 1 capsule (30 mg total) by mouth daily. [facility] lisinopriL (PRINIVIL,Z ESTRIL) 5 MG tablet -15 00:00: 00 04-02 23:59 :00 No 5mg QD Take 1 tablet (5 mg total) by mouth daily. [facility] furosemide (LASIX) 20 MG tablet 0 -15 00:00: 00 04-02 23:59 :00 No 20mg QD Take 1 tablet (20 mg total) by mouth daily. [facility] furosemide (LASIX) 20 MG tablet 2022-0 -15 00:00: 00 04-02 23:59 :00 No 20mg QD Take 1 tablet (20 mg total) by mouth daily. [facility] furosemide (LASIX) 20 MG tablet 0 -15 00:00: 00 04-02 23:59 :00 No 20mg QD Take 1 tablet (20 mg total) by mouth daily. [facility] furosemide (LASIX) 20 MG tablet 0 -15 00:00: 00 04-02 23:59 :00 No 20mg QD Take 1 tablet (20 mg total) by mouth daily. [facility] furosemide (LASIX) 20 MG tablet 0 -15 00:00: 00 04-02 23:59 :00 No 20mg QD Take 1 tablet (20 mg total) by mouth daily. [facility] furosemide (LASIX) 20 MG tablet 0 - 00:00: 00 04-02 23:59 :00 No 20mg QD Take 1 tablet (20 mg total) by mouth daily. [facility] furosemide (LASIX) 20 MG tablet 04-03 00:00: 00 04-02 23:59 :00 No 20mg QD Take 1 tablet (20 mg total) by mouth daily. [facility] DULoxetine (CYMBALTA) 30 MG capsule 04-03 00:00: 00 04-02 23:59 :00 No 30mg QD Take 1 capsule (30 mg total) by mouth daily. [facility] lisinopriL (PRINIVIL,Z ESTRIL) 5 MG tablet 15 00:00: 00 04-02 23:59 :00 No 5mg QD Take 1 tablet (5 mg total) by mouth daily. [facility] furosemide (LASIX) 20 MG tablet 2022-0 -15 00:00: 00 04-02 23:59 :00 No 20mg QD Take 1 tablet (20 mg total) by mouth daily. [facility] furosemide (LASIX) 20 MG tablet 2022-0 -15 00:00: 00 04-02 23:59 :00 No 20mg QD Take 1 tablet (20 mg total) by mouth daily. [facility] DULoxetine (CYMBALTA) 30 MG capsule 0 -15 00:00: 00 04-02 23:59 :00 No 30mg QD Take 1 capsule (30 mg total) by mouth daily. [facility] lisinopriL (PRINIVIL,Z ESTRIL) 5 MG tablet 0 -15 00:00: 00 04-02 23:59 :00 No 5mg QD Take 1 tablet (5 mg total) by mouth daily. [facility] furosemide (LASIX) 20 MG tablet 2022-0 -15 00:00: 00 04-02 23:59 :00 No 20mg QD Take 1 tablet (20 mg total) by mouth daily. [facility] DULoxetine (CYMBALTA) 30 MG capsule 2022-0 15 00:00: 00 04-02 23:59 :00 No 30mg QD Take 1 capsule (30 mg total) by mouth daily. [facility] lisinopriL (PRINIVIL,Z ESTRIL) 5 MG tablet 2022-0 -15 00:00: 00 04-02 23:59 :00 No 5mg QD Take 1 tablet (5 mg total) by mouth daily. [facility] furosemide (LASIX) 20 MG tablet 0 15 00:00: 00 04-02 23:59 :00 No 20mg QD Take 1 tablet (20 mg total) by mouth daily. [facility] DULoxetine (CYMBALTA) 30 MG capsule 2022-0 -15 00:00: 00 04-02 23:59 :00 No 30mg QD Take 1 capsule (30 mg total) by mouth daily. [facility] lisinopriL (PRINIVIL,Z ESTRIL) 5 MG tablet 2022-0 -15 00:00: 00 04-02 23:59 :00 No 5mg QD Take 1 tablet (5 mg total) by mouth daily. [facility] furosemide (LASIX) 20 MG tablet 2022-0 9-15 00:00: 00 04-02 23:59 :00 No 20mg QD Take 1 tablet (20 mg total) by mouth daily. [facility] DULoxetine (CYMBALTA) 30 MG capsule 2022-0 -15 00:00: 00 04-02 23:59 :00 No 30mg QD Take 1 capsule (30 mg total) by mouth daily. [facility] lisinopriL (PRINIVIL,Z ESTRIL) 5 MG tablet 2022-0 9-15 00:00: 00 04-02 23:59 :00 No 5mg QD Take 1 tablet (5 mg total) by mouth daily. [facility] furosemide (LASIX) 20 MG tablet 2022-0 -15 00:00: 00 04-02 23:59 :00 No 20mg QD Take 1 tablet (20 mg total) by mouth daily. [facility] DULoxetine (CYMBALTA) 30 MG capsule 2022-0 -15 00:00: 00 04-02 23:59 :00 No 30mg QD Take 1 capsule (30 mg total) by mouth daily. [facility] lisinopriL (PRINIVIL,Z ESTRIL) 5 MG tablet 0 -15 00:00: 00 04-02 23:59 :00 No 5mg QD Take 1 tablet (5 mg total) by mouth daily. [facility] furosemide (LASIX) 20 MG tablet 0 -15 00:00: 00 04-02 23:59 :00 No 20mg QD Take 1 tablet (20 mg total) by mouth daily. [facility] DULoxetine (CYMBALTA) 30 MG capsule 2022-0 -15 00:00: 00 04-02 23:59 :00 No 30mg QD Take 1 capsule (30 mg total) by mouth daily. [facility] furosemide (LASIX) 20 MG tablet 2022-0 -15 00:00: 00 04-02 23:59 :00 No 20mg QD Take 1 tablet (20 mg total) by mouth daily. [facility] DULoxetine (CYMBALTA) 30 MG capsule 2022-0 9-15 00:00: 00 04-02 23:59 :00 No 30mg QD Take 1 capsule (30 mg total) by mouth daily. [facility] furosemide (LASIX) 20 MG tablet 0 -15 00:00: 00 04-02 23:59 :00 No 20mg QD Take 1 tablet (20 mg total) by mouth daily. [facility] DULoxetine (CYMBALTA) 30 MG capsule 0 -15 00:00: 00 04-02 23:59 :00 No 30mg QD Take 1 capsule (30 mg total) by mouth daily. [facility] furosemide (LASIX) 20 MG tablet 0 -15 00:00: 00 04-02 23:59 :00 No 20mg QD Take 1 tablet (20 mg total) by mouth daily. [facility] DULoxetine (CYMBALTA) 30 MG capsule -15 00:00: 00 04-02 23:59 :00 No 30mg QD Take 1 capsule (30 mg total) by mouth daily. [facility] furosemide (LASIX) 20 MG tablet 0 -15 00:00: 00 04-02 23:59 :00 No 20mg QD Take 1 tablet (20 mg total) by mouth daily. [facility] furosemide (LASIX) 20 MG tablet - 00:00: 00 04-02 23:59 :00 No 20mg QD Take 1 tablet (20 mg total) by mouth daily. [facility] furosemide (LASIX) 20 MG tablet 0 -15 00:00: 00 09-07 00:00 :00 No 20mg QD Take 1 tablet (20 mg total) by mouth daily. [facility] furosemide (LASIX) 20 MG tablet 2022-0 -15 00:00: 00 09-07 00:00 :00 No 20mg QD Take 1 tablet (20 mg total) by mouth daily. [facility] furosemide (LASIX) 20 MG tablet 0 -15 00:00: 00 09-07 00:00 :00 No 20mg QD Take 1 tablet (20 mg total) by mouth daily. [facility] aspirin 81 MG EC tablet -15 00:00: 00 07-02 23:59 :00 No 81mg QD Take 1 tablet (81 mg total) by mouth daily for 90 days. [facility] divalproex (DEPAKOTE) 500 MG EC tablet 04-03 00:00: 00 07-02 23:59 :00 No 500mg Q.5D Take 1 tablet (500 mg total) by mouth 2 (two) times daily for 90 days. [facility] gabapentin (NEURONTIN) 300 MG capsule 04-03 00:00: 00 07-02 23:59 :00 No 300mg Q.[id number] 3D Take 1 capsule (300 mg total) by mouth 3 (three) times daily for 90 days. [facility] aspirin 81 MG EC tablet 04-03 00:00: 00 07-02 23:59 :00 No 81mg QD Take 1 tablet (81 mg total) by mouth daily for 90 days. [facility] divalproex (DEPAKOTE) 500 MG EC tablet 04-03 00:00: 00 07-02 23:59 :00 No 500mg Q.5D Take 1 tablet (500 mg total) by mouth 2 (two) times daily for 90 days. [facility] gabapentin (NEURONTIN) 300 MG capsule 04-03 00:00: 00 07-02 23:59 :00 No 300mg Q.[id number] 3D Take 1 capsule (300 mg total) by mouth 3 (three) times daily for 90 days. [facility] aspirin 81 MG EC tablet 04-03 00:00: 00 07-02 23:59 :00 No 81mg QD Take 1 tablet (81 mg total) by mouth daily for 90 days. [facility] divalproex (DEPAKOTE) 500 MG EC tablet 04-03 00:00: 00 07-02 23:59 :00 No 500mg Q.5D Take 1 tablet (500 mg total) by mouth 2 (two) times daily for 90 days. [facility] gabapentin (NEURONTIN) 300 MG capsule 2023-0 9-15 00:00: 00 07-02 23:59 :00 No 300mg Q.[id number] 3D Take 1 capsule (300 mg total) by mouth 3 (three) times daily for 90 days. [facility] aspirin 81 MG EC tablet 04-03 00:00: 00 07-02 23:59 :00 No 81mg QD Take 1 tablet (81 mg total) by mouth daily for 90 days. [facility] divalproex (DEPAKOTE) 500 MG EC tablet 04-03 00:00: 00 07-02 23:59 :00 No 500mg Q.5D Take 1 tablet (500 mg total) by mouth 2 (two) times daily for 90 days. [facility] gabapentin (NEURONTIN) 300 MG capsule 04-03 00:00: 00 07-02 23:59 :00 No 300mg Q.[id number] 3D Take 1 capsule (300 mg total) by mouth 3 (three) times daily for 90 days. [facility] aspirin 81 MG EC tablet 04-03 00:00: 00 07-02 23:59 :00 No 81mg QD Take 1 tablet (81 mg total) by mouth daily for 90 days. [facility] divalproex (DEPAKOTE) 500 MG EC tablet 04-03 00:00: 00 07-02 23:59 :00 No 500mg Q.5D Take 1 tablet (500 mg total) by mouth 2 (two) times daily for 90 days. [facility] gabapentin (NEURONTIN) 300 MG capsule 04-03 00:00: 00 07-02 23:59 :00 No 300mg Q.[id number] 3D Take 1 capsule (300 mg total) by mouth 3 (three) times daily for 90 days. [facility] aspirin 81 MG EC tablet 04-03 00:00: 00 07-02 23:59 :00 No 81mg QD Take 1 tablet (81 mg total) by mouth daily for 90 days. [facility] divalproex (DEPAKOTE) 500 MG EC tablet 15 00:00: 00 07-02 23:59 :00 No 500mg Q.5D Take 1 tablet (500 mg total) by mouth 2 (two) times daily for 90 days. [facility] gabapentin (NEURONTIN) 300 MG capsule 04-03 00:00: 00 07-02 23:59 :00 No 300mg Q.[id number] 3D Take 1 capsule (300 mg total) by mouth 3 (three) times daily for 90 days. [facility] aspirin 81 MG EC tablet 04-03 00:00: 00 07-02 23:59 :00 No 81mg QD Take 1 tablet (81 mg total) by mouth daily for 90 days. [facility] divalproex (DEPAKOTE) 500 MG EC tablet 04-03 00:00: 00 07-02 23:59 :00 No 500mg Q.5D Take 1 tablet (500 mg total) by mouth 2 (two) times daily for 90 days. [facility] gabapentin (NEURONTIN) 300 MG capsule 04-03 00:00: 00 07-02 23:59 :00 No 300mg Q.[id number] 3D Take 1 capsule (300 mg total) by mouth 3 (three) times daily for 90 days. [facility] aspirin 81 MG EC tablet 04-03 00:00: 00 07-02 23:59 :00 No 81mg QD Take 1 tablet (81 mg total) by mouth daily for 90 days. [facility] divalproex (DEPAKOTE) 500 MG EC tablet 04-03 00:00: 00 07-02 23:59 :00 No 500mg Q.5D Take 1 tablet (500 mg total) by mouth 2 (two) times daily for 90 days. [facility] gabapentin (NEURONTIN) 300 MG capsule 15 00:00: 00 07-02 23:59 :00 No 300mg Q.[id number] 3D Take 1 capsule (300 mg total) by mouth 3 (three) times daily for 90 days. [facility] aspirin 81 MG EC tablet 04-03 00:00: 00 07-02 23:59 :00 No 81mg QD Take 1 tablet (81 mg total) by mouth daily for 90 days. [facility] divalproex (DEPAKOTE) 500 MG EC tablet 04-03 00:00: 00 07-02 23:59 :00 No 500mg Q.5D Take 1 tablet (500 mg total) by mouth 2 (two) times daily for 90 days. [facility] gabapentin (NEURONTIN) 300 MG capsule 04-03 00:00: 00 07-02 23:59 :00 No 300mg Q.[id number] 3D Take 1 capsule (300 mg total) by mouth 3 (three) times daily for 90 days. [facility] aspirin 81 MG EC tablet 04-03 00:00: 00 07-02 23:59 :00 No 81mg QD Take 1 tablet (81 mg total) by mouth daily for 90 days. [facility] divalproex (DEPAKOTE) 500 MG EC tablet 04-03 00:00: 00 07-02 23:59 :00 No 500mg Q.5D Take 1 tablet (500 mg total) by mouth 2 (two) times daily for 90 days. [facility] gabapentin (NEURONTIN) 300 MG capsule 04-03 00:00: 00 07-02 23:59 :00 No 300mg Q.[id number] 3D Take 1 capsule (300 mg total) by mouth 3 (three) times daily for 90 days. [facility] aspirin 81 MG EC tablet 04-03 00:00: 00 07-02 23:59 :00 No 81mg QD Take 1 tablet (81 mg total) by mouth daily for 90 days. [facility] divalproex (DEPAKOTE) 500 MG EC tablet 04-03 00:00: 00 07-02 23:59 :00 No 500mg Q.5D Take 1 tablet (500 mg total) by mouth 2 (two) times daily for 90 days. [facility] gabapentin (NEURONTIN) 300 MG capsule 04-03 00:00: 00 07-02 23:59 :00 No 300mg Q.[id number] 3D Take 1 capsule (300 mg total) by mouth 3 (three) times daily for 90 days. [facility] aspirin 81 MG EC tablet 04-03 00:00: 00 07-02 23:59 :00 No 81mg QD Take 1 tablet (81 mg total) by mouth daily for 90 days. [facility] divalproex (DEPAKOTE) 500 MG EC tablet 04-03 00:00: 00 07-02 23:59 :00 No 500mg Q.5D Take 1 tablet (500 mg total) by mouth 2 (two) times daily for 90 days. [facility] gabapentin (NEURONTIN) 300 MG capsule 04-03 00:00: 00 07-02 23:59 :00 No 300mg Q.[id number] 3D Take 1 capsule (300 mg total) by mouth 3 (three) times daily for 90 days. [facility] aspirin 81 MG EC tablet 04-03 00:00: 00 07-02 23:59 :00 No 81mg QD Take 1 tablet (81 mg total) by mouth daily for 90 days. [facility] divalproex (DEPAKOTE) 500 MG EC tablet 04-03 00:00: 00 07-02 23:59 :00 No 500mg Q.5D Take 1 tablet (500 mg total) by mouth 2 (two) times daily for 90 days. [facility] gabapentin (NEURONTIN) 300 MG capsule 04-03 00:00: 00 07-02 23:59 :00 No 300mg Q.[id number] 3D Take 1 capsule (300 mg total) by mouth 3 (three) times daily for 90 days. [facility] aspirin 81 MG EC tablet 04-03 00:00: 00 07-02 23:59 :00 No 81mg QD Take 1 tablet (81 mg total) by mouth daily for 90 days. [facility] divalproex (DEPAKOTE) 500 MG EC tablet 04-03 00:00: 00 07-02 23:59 :00 No 500mg Q.5D Take 1 tablet (500 mg total) by mouth 2 (two) times daily for 90 days. [facility] gabapentin (NEURONTIN) 300 MG capsule 04-03 00:00: 00 07-02 23:59 :00 No 300mg Q.[id number] 3D Take 1 capsule (300 mg total) by mouth 3 (three) times daily for 90 days. [facility] aspirin 81 MG EC tablet 04-03 00:00: 00 07-02 23:59 :00 No 81mg QD Take 1 tablet (81 mg total) by mouth daily for 90 days. [facility] divalproex (DEPAKOTE) 500 MG EC tablet 04-03 00:00: 00 07-02 23:59 :00 No 500mg Q.5D Take 1 tablet (500 mg total) by mouth 2 (two) times daily for 90 days. [facility] gabapentin (NEURONTIN) 300 MG capsule 04-03 00:00: 00 07-02 23:59 :00 No 300mg Q.[id number] 3D Take 1 capsule (300 mg total) by mouth 3 (three) times daily for 90 days. [facility] aspirin 81 MG EC tablet 04-03 00:00: 00 07-02 23:59 :00 No 81mg QD Take 1 tablet (81 mg total) by mouth daily for 90 days. [facility] divalproex (DEPAKOTE) 500 MG EC tablet 04-03 00:00: 00 07-02 23:59 :00 No 500mg Q.5D Take 1 tablet (500 mg total) by mouth 2 (two) times daily for 90 days. [facility] gabapentin (NEURONTIN) 300 MG capsule 15 00:00: 00 07-02 23:59 :00 No 300mg Q.[id number] 3D Take 1 capsule (300 mg total) by mouth 3 (three) times daily for 90 days. [facility] aspirin 81 MG EC tablet 15 00:00: 00 07-02 23:59 :00 No 81mg QD Take 1 tablet (81 mg total) by mouth daily for 90 days. [facility] divalproex (DEPAKOTE) 500 MG EC tablet 04-03 00:00: 00 07-02 23:59 :00 No 500mg Q.5D Take 1 tablet (500 mg total) by mouth 2 (two) times daily for 90 days. [facility] gabapentin (NEURONTIN) 300 MG capsule 04-03 00:00: 00 07-02 23:59 :00 No 300mg Q.[id number] 3D Take 1 capsule (300 mg total) by mouth 3 (three) times daily for 90 days. [facility] aspirin 81 MG EC tablet 15 00:00: 00 07-02 23:59 :00 No 81mg QD Take 1 tablet (81 mg total) by mouth daily for 90 days. [facility] divalproex (DEPAKOTE) 500 MG EC tablet 04-03 00:00: 00 07-02 23:59 :00 No 500mg Q.5D Take 1 tablet (500 mg total) by mouth 2 (two) times daily for 90 days. [facility] gabapentin (NEURONTIN) 300 MG capsule 15 00:00: 00 07-02 23:59 :00 No 300mg Q.[id number] 3D Take 1 capsule (300 mg total) by mouth 3 (three) times daily for 90 days. [facility] aspirin 81 MG EC tablet -15 00:00: 00 07-02 23:59 :00 No 81mg QD Take 1 tablet (81 mg total) by mouth daily for 90 days. [facility] divalproex (DEPAKOTE) 500 MG EC tablet 04-03 00:00: 00 07-02 23:59 :00 No 500mg Q.5D Take 1 tablet (500 mg total) by mouth 2 (two) times daily for 90 days. [facility] gabapentin (NEURONTIN) 300 MG capsule 04-03 00:00: 00 07-02 23:59 :00 No 300mg Q.[id number] 3D Take 1 capsule (300 mg total) by mouth 3 (three) times daily for 90 days. [facility] aspirin 81 MG EC tablet 04-03 00:00: 00 07-02 23:59 :00 No 81mg QD Take 1 tablet (81 mg total) by mouth daily for 90 days. [facility] divalproex (DEPAKOTE) 500 MG EC tablet 04-03 00:00: 00 07-02 23:59 :00 No 500mg Q.5D Take 1 tablet (500 mg total) by mouth 2 (two) times daily for 90 days. [facility] gabapentin (NEURONTIN) 300 MG capsule 04-03 00:00: 00 07-02 23:59 :00 No 300mg Q.[id number] 3D Take 1 capsule (300 mg total) by mouth 3 (three) times daily for 90 days. [facility] aspirin 81 MG EC tablet 04-03 00:00: 00 07-02 23:59 :00 No 81mg QD Take 1 tablet (81 mg total) by mouth daily for 90 days. [facility] divalproex (DEPAKOTE) 500 MG EC tablet 04-03 00:00: 00 07-02 23:59 :00 No 500mg Q.5D Take 1 tablet (500 mg total) by mouth 2 (two) times daily for 90 days. [facility] gabapentin (NEURONTIN) 300 MG capsule 04-03 00:00: 00 07-02 23:59 :00 No 300mg Q.[id number] 3D Take 1 capsule (300 mg total) by mouth 3 (three) times daily for 90 days. [facility] aspirin 81 MG EC tablet 04-03 00:00: 00 07-02 23:59 :00 No 81mg QD Take 1 tablet (81 mg total) by mouth daily for 90 days. [facility] divalproex (DEPAKOTE) 500 MG EC tablet 04-03 00:00: 00 07-02 23:59 :00 No 500mg Q.5D Take 1 tablet (500 mg total) by mouth 2 (two) times daily for 90 days. [facility] gabapentin (NEURONTIN) 300 MG capsule 04-03 00:00: 00 07-02 23:59 :00 No 300mg Q.[id number] 3D Take 1 capsule (300 mg total) by mouth 3 (three) times daily for 90 days. [facility] aspirin 81 MG EC tablet 04-03 00:00: 00 07-02 23:59 :00 No 81mg QD Take 1 tablet (81 mg total) by mouth daily for 90 days. [facility] aspirin 81 MG EC tablet 04-03 00:00: 00 07-02 23:59 :00 No 81mg QD Take 1 tablet (81 mg total) by mouth daily for 90 days. [facility] divalproex (DEPAKOTE) 500 MG EC tablet 04-03 00:00: 00 07-02 23:59 :00 No 500mg Q.5D Take 1 tablet (500 mg total) by mouth 2 (two) times daily for 90 days. [facility] gabapentin (NEURONTIN) 300 MG capsule 04-03 00:00: 00 07-02 23:59 :00 No 300mg Q.[id number] 3D Take 1 capsule (300 mg total) by mouth 3 (three) times daily for 90 days. [facility] divalproex (DEPAKOTE) 500 MG EC tablet 04-03 00:00: 07-02 23:59 :00 No 500mg Q.5D Take 1 tablet (500 mg total) by mouth 2 (two) times daily for 90 days. [facility] gabapentin (NEURONTIN) 300 MG capsule 04-03 00:00: 00 07-02 23:59 :00 No 300mg Q.[id number] 3D Take 1 capsule (300 mg total) by mouth 3 (three) times daily for 90 days. [facility] aspirin 81 MG EC tablet 04-03 00:00: 00 07-02 23:59 :00 No 81mg QD Take 1 tablet (81 mg total) by mouth daily for 90 days. [facility] divalproex (DEPAKOTE) 500 MG EC tablet 04-03 00:00: 00 07-02 23:59 :00 No 500mg Q.5D Take 1 tablet (500 mg total) by mouth 2 (two) times daily for 90 days. [facility] gabapentin (NEURONTIN) 300 MG capsule 04-03 00:00: 00 07-02 23:59 :00 No 300mg Q.[id number] 3D Take 1 capsule (300 mg total) by mouth 3 (three) times daily for 90 days. [facility] aspirin 81 MG EC tablet 04-03 00:00: 00 07-02 23:59 :00 No 81mg QD Take 1 tablet (81 mg total) by mouth daily for 90 days. [facility] divalproex (DEPAKOTE) 500 MG EC tablet 04-03 00:00: 00 07-02 23:59 :00 No 500mg Q.5D Take 1 tablet (500 mg total) by mouth 2 (two) times daily for 90 days. [facility] gabapentin (NEURONTIN) 300 MG capsule 04-03 00:00: 00 07-02 23:59 :00 No 300mg Q.[id number] 3D Take 1 capsule (300 mg total) by mouth 3 (three) times daily for 90 days. [facility] aspirin 81 MG EC tablet 15 00:00: 00 07-02 23:59 :00 No 81mg QD Take 1 tablet (81 mg total) by mouth daily for 90 days. [facility] divalproex (DEPAKOTE) 500 MG EC tablet 04-03 00:00: 00 07-02 23:59 :00 No 500mg Q.5D Take 1 tablet (500 mg total) by mouth 2 (two) times daily for 90 days. [facility] gabapentin (NEURONTIN) 300 MG capsule 04-03 00:00: 00 07-02 23:59 :00 No 300mg Q.[id number] 3D Take 1 capsule (300 mg total) by mouth 3 (three) times daily for 90 days. [facility] aspirin 81 MG EC tablet 04-03 00:00: 00 07-02 23:59 :00 No 81mg QD Take 1 tablet (81 mg total) by mouth daily for 90 days. [facility] divalproex (DEPAKOTE) 500 MG EC tablet 04-03 00:00: 00 07-02 23:59 :00 No 500mg Q.5D Take 1 tablet (500 mg total) by mouth 2 (two) times daily for 90 days. [facility] gabapentin (NEURONTIN) 300 MG capsule 04-03 00:00: 00 07-02 23:59 :00 No 300mg Q.[id number] 3D Take 1 capsule (300 mg total) by mouth 3 (three) times daily for 90 days. [facility] aspirin 81 MG EC tablet 04-03 00:00: 00 07-02 23:59 :00 No 81mg QD Take 1 tablet (81 mg total) by mouth daily for 90 days. [facility] divalproex (DEPAKOTE) 500 MG EC tablet 04-03 00:00: 00 07-02 23:59 :00 No 500mg Q.5D Take 1 tablet (500 mg total) by mouth 2 (two) times daily for 90 days. [facility] gabapentin (NEURONTIN) 300 MG capsule 15 00:00: 00 07-02 23:59 :00 No 300mg Q.[id number] 3D Take 1 capsule (300 mg total) by mouth 3 (three) times daily for 90 days. [facility] aspirin 81 MG EC tablet 04-03 00:00: 00 07-02 23:59 :00 No 81mg QD Take 1 tablet (81 mg total) by mouth daily for 90 days. [facility] divalproex (DEPAKOTE) 500 MG EC tablet 04-03 00:00: 00 07-02 23:59 :00 No 500mg Q.5D Take 1 tablet (500 mg total) by mouth 2 (two) times daily for 90 days. [facility] gabapentin (NEURONTIN) 300 MG capsule 04-03 00:00: 00 07-02 23:59 :00 No 300mg Q.[id number] 3D Take 1 capsule (300 mg total) by mouth 3 (three) times daily for 90 days. [facility] aspirin 81 MG EC tablet 04-03 00:00: 00 07-02 23:59 :00 No 81mg QD Take 1 tablet (81 mg total) by mouth daily for 90 days. [facility] divalproex (DEPAKOTE) 500 MG EC tablet 04-03 00:00: 00 07-02 23:59 :00 No 500mg Q.5D Take 1 tablet (500 mg total) by mouth 2 (two) times daily for 90 days. [facility] gabapentin (NEURONTIN) 300 MG capsule 04-03 00:00: 00 07-02 23:59 :00 No 300mg Q.[id number] 3D Take 1 capsule (300 mg total) by mouth 3 (three) times daily for 90 days. [facility] aspirin 81 MG EC tablet 04-03 00:00: 00 07-02 23:59 :00 No 81mg QD Take 1 tablet (81 mg total) by mouth daily for 90 days. [facility] divalproex (DEPAKOTE) 500 MG EC tablet 04-03 00:00: 00 07-02 23:59 :00 No 500mg Q.5D Take 1 tablet (500 mg total) by mouth 2 (two) times daily for 90 days. [facility] gabapentin (NEURONTIN) 300 MG capsule 04-03 00:00: 00 07-02 23:59 :00 No 300mg Q.[id number] 3D Take 1 capsule (300 mg total) by mouth 3 (three) times daily for 90 days. [facility] aspirin 81 MG EC tablet 04-03 00:00: 00 07-02 23:59 :00 No 81mg QD Take 1 tablet (81 mg total) by mouth daily for 90 days. [facility] divalproex (DEPAKOTE) 500 MG EC tablet 04-03 00:00: 00 07-02 23:59 :00 No 500mg Q.5D Take 1 tablet (500 mg total) by mouth 2 (two) times daily for 90 days. [facility] gabapentin (NEURONTIN) 300 MG capsule 04-03 00:00: 00 07-02 23:59 :00 No 300mg Q.[id number] 3D Take 1 capsule (300 mg total) by mouth 3 (three) times daily for 90 days. [facility] aspirin 81 MG EC tablet 04-03 00:00: 00 07-02 23:59 :00 No 81mg QD Take 1 tablet (81 mg total) by mouth daily for 90 days. [facility] divalproex (DEPAKOTE) 500 MG EC tablet 04-03 00:00: 00 07-02 23:59 :00 No 500mg Q.5D Take 1 tablet (500 mg total) by mouth 2 (two) times daily for 90 days. [facility] gabapentin (NEURONTIN) 300 MG capsule 04-03 00:00: 00 07-02 23:59 :00 No 300mg Q.[id number] 3D Take 1 capsule (300 mg total) by mouth 3 (three) times daily for 90 days. [facility] aspirin 81 MG EC tablet 04-03 00:00: 00 07-02 23:59 :00 No 81mg QD Take 1 tablet (81 mg total) by mouth daily for 90 days. [facility] divalproex (DEPAKOTE) 500 MG EC tablet 04-03 00:00: 00 07-02 23:59 :00 No 500mg Q.5D Take 1 tablet (500 mg total) by mouth 2 (two) times daily for 90 days. [facility] gabapentin (NEURONTIN) 300 MG capsule 04-03 00:00: 00 07-02 23:59 :00 No 300mg Q.[id number] 3D Take 1 capsule (300 mg total) by mouth 3 (three) times daily for 90 days. [facility] aspirin 81 MG EC tablet 04-03 00:00: 00 07-02 23:59 :00 No 81mg QD Take 1 tablet (81 mg total) by mouth daily for 90 days. [facility] divalproex (DEPAKOTE) 500 MG EC tablet 04-03 00:00: 00 07-02 23:59 :00 No 500mg Q.5D Take 1 tablet (500 mg total) by mouth 2 (two) times daily for 90 days. [facility] gabapentin (NEURONTIN) 300 MG capsule 04-03 00:00: 00 07-02 23:59 :00 No 300mg Q.[id number] 3D Take 1 capsule (300 mg total) by mouth 3 (three) times daily for 90 days. [facility] aspirin 81 MG EC tablet 04-03 00:00: 00 07-02 23:59 :00 No 81mg QD Take 1 tablet (81 mg total) by mouth daily for 90 days. [facility] divalproex (DEPAKOTE) 500 MG EC tablet 04-03 00:00: 00 07-02 23:59 :00 No 500mg Q.5D Take 1 tablet (500 mg total) by mouth 2 (two) times daily for 90 days. [facility] gabapentin (NEURONTIN) 300 MG capsule 04-03 00:00: 00 07-02 23:59 :00 No 300mg Q.[id number] 3D Take 1 capsule (300 mg total) by mouth 3 (three) times daily for 90 days. [facility] aspirin 81 MG EC tablet 04-03 00:00: 00 07-02 23:59 :00 No 81mg QD Take 1 tablet (81 mg total) by mouth daily for 90 days. [facility] divalproex (DEPAKOTE) 500 MG EC tablet 04-03 00:00: 00 07-02 23:59 :00 No 500mg Q.5D Take 1 tablet (500 mg total) by mouth 2 (two) times daily for 90 days. [facility] gabapentin (NEURONTIN) 300 MG capsule 04-03 00:00: 00 07-02 23:59 :00 No 300mg Q.[id number] 3D Take 1 capsule (300 mg total) by mouth 3 (three) times daily for 90 days. [facility] aspirin 81 MG EC tablet 04-03 00:00: 00 07-02 23:59 :00 No 81mg QD Take 1 tablet (81 mg total) by mouth daily for 90 days. [facility] divalproex (DEPAKOTE) 500 MG EC tablet 04-03 00:00: 00 07-02 23:59 :00 No 500mg Q.5D Take 1 tablet (500 mg total) by mouth 2 (two) times daily for 90 days. [facility] gabapentin (NEURONTIN) 300 MG capsule 04-03 00:00: 00 07-02 23:59 :00 No 300mg Q.[id number] 3D Take 1 capsule (300 mg total) by mouth 3 (three) times daily for 90 days. [facility] DULoxetine (CYMBALTA) 30 MG capsule 2022-0 9-15 00:00: 00 06-16 00:00 :00 No 30mg QD Take 1 capsule (30 mg total) by mouth daily. [facility] DULoxetine (CYMBALTA) 30 MG capsule 2022-0 9-15 00:00: 00 06-16 00:00 :00 No 30mg QD Take 1 capsule (30 mg total) by mouth daily. [facility] DULoxetine (CYMBALTA) 30 MG capsule 2022-0 9-15 00:00: 00 06-16 00:00 :00 No 30mg QD Take 1 capsule (30 mg total) by mouth daily. [facility] DULoxetine (CYMBALTA) 30 MG capsule 2022-0 9-15 00:00: 00 06-16 00:00 :00 No 30mg QD Take 1 capsule (30 mg total) by mouth daily. [facility] DULoxetine (CYMBALTA) 30 MG capsule 2022-0 9-15 00:00: 00 06-16 00:00 :00 No 30mg QD Take 1 capsule (30 mg total) by mouth daily. [facility] DULoxetine (CYMBALTA) 30 MG capsule 2022-0 9-15 00:00: 00 06-16 00:00 :00 No 30mg QD Take 1 capsule (30 mg total) by mouth daily. [facility] DULoxetine (CYMBALTA) 30 MG capsule 2022-0 9-15 00:00: 00 06-16 00:00 :00 No 30mg QD Take 1 capsule (30 mg total) by mouth daily. [facility] DULoxetine (CYMBALTA) 30 MG capsule 2022-0 9-15 00:00: 00 06-16 00:00 :00 No 30mg QD Take 1 capsule (30 mg total) by mouth daily. [facility] DULoxetine (CYMBALTA) 30 MG capsule 2022-0 9-15 00:00: 00 06-16 00:00 :00 No 30mg QD Take 1 capsule (30 mg total) by mouth daily. [facility] DULoxetine (CYMBALTA) 30 MG capsule 2022-0 9-15 00:00: 00 06-16 00:00 :00 No 30mg QD Take 1 capsule (30 mg total) by mouth daily. [facility] DULoxetine (CYMBALTA) 30 MG capsule 2022-0 9-15 00:00: 00 06-16 00:00 :00 No 30mg QD Take 1 capsule (30 mg total) by mouth daily. [facility] DULoxetine (CYMBALTA) 30 MG capsule 2022-0 9-15 00:00: 00 06-16 00:00 :00 No 30mg QD Take 1 capsule (30 mg total) by mouth daily. [facility] DULoxetine (CYMBALTA) 30 MG capsule 2022-0 9-15 00:00: 00 06-16 00:00 :00 No 30mg QD Take 1 capsule (30 mg total) by mouth daily. [facility] DULoxetine (CYMBALTA) 30 MG capsule 2022-0 9-15 00:00: 00 06-16 00:00 :00 No 30mg QD Take 1 capsule (30 mg total) by mouth daily. [facility] DULoxetine (CYMBALTA) 30 MG capsule 2022-0 9-15 00:00: 00 06-16 00:00 :00 No 30mg QD Take 1 capsule (30 mg total) by mouth daily. [facility] DULoxetine (CYMBALTA) 30 MG capsule 2022-0 9-15 00:00: 00 06-16 00:00 :00 No 30mg QD Take 1 capsule (30 mg total) by mouth daily. [facility] DULoxetine (CYMBALTA) 30 MG capsule 2022-0 9-15 00:00: 00 06-16 00:00 :00 No 30mg QD Take 1 capsule (30 mg total) by mouth daily. [facility] DULoxetine (CYMBALTA) 30 MG capsule 2022-0 9-15 00:00: 00 06-16 00:00 :00 No 30mg QD Take 1 capsule (30 mg total) by mouth daily. [facility] DULoxetine (CYMBALTA) 30 MG capsule 0 9-15 00:00: 00 06-16 00:00 :00 No 30mg QD Take 1 capsule (30 mg total) by mouth daily. [facility] DULoxetine (CYMBALTA) 30 MG capsule 2022-0 9-15 00:00: 00 06-16 00:00 :00 No 30mg QD Take 1 capsule (30 mg total) by mouth daily. [facility] DULoxetine (CYMBALTA) 30 MG capsule 0 9-15 00:00: 00 06-16 00:00 :00 No 30mg QD Take 1 capsule (30 mg total) by mouth daily. [facility] DULoxetine (CYMBALTA) 30 MG capsule 0 9-15 00:00: 00 06-16 00:00 :00 No 30mg QD Take 1 capsule (30 mg total) by mouth daily. [facility] DULoxetine (CYMBALTA) 30 MG capsule 0 9-15 00:00: 00 06-16 00:00 :00 No 30mg QD Take 1 capsule (30 mg total) by mouth daily. [facility] DULoxetine (CYMBALTA) 30 MG capsule 0 9-15 00:00: 00 06-16 00:00 :00 No 30mg QD Take 1 capsule (30 mg total) by mouth daily. [facility] DULoxetine (CYMBALTA) 30 MG capsule 0 9-15 00:00: 00 06-16 00:00 :00 No 30mg QD Take 1 capsule (30 mg total) by mouth daily. [facility] DULoxetine (CYMBALTA) 30 MG capsule 0 9-15 00:00: 00 06-16 00:00 :00 No 30mg QD Take 1 capsule (30 mg total) by mouth daily. [facility] lisinopriL (PRINIVIL,Z ESTRIL) 5 MG tablet 9-15 00:00: 00 05-28 00:00 :00 No 5mg QD Take 1 tablet (5 mg total) by mouth daily. [facility] lisinopriL (PRINIVIL,Z ESTRIL) 5 MG tablet 04-03 00:00: 00 05-28 00:00 :00 No 5mg QD Take 1 tablet (5 mg total) by mouth daily. [facility] lisinopriL (PRINIVIL,Z ESTRIL) 5 MG tablet 04-03 00:00: 00 05-28 00:00 :00 No 5mg QD Take 1 tablet (5 mg total) by mouth daily. [facility] lisinopriL (PRINIVIL,Z ESTRIL) 5 MG tablet 04-03 00:00: 00 05-28 00:00 :00 No 5mg QD Take 1 tablet (5 mg total) by mouth daily. [facility] lisinopriL (PRINIVIL,Z ESTRIL) 5 MG tablet 04-03 00:00: 00 05-28 00:00 :00 No 5mg QD Take 1 tablet (5 mg total) by mouth daily. [facility] lisinopriL (PRINIVIL,Z ESTRIL) 5 MG tablet 04-03 00:00: 00 05-28 00:00 :00 No 5mg QD Take 1 tablet (5 mg total) by mouth daily. [facility] lisinopriL (PRINIVIL,Z ESTRIL) 5 MG tablet 04-03 00:00: 00 05-28 00:00 :00 No 5mg QD Take 1 tablet (5 mg total) by mouth daily. [facility] lisinopriL (PRINIVIL,Z ESTRIL) 5 MG tablet -15 00:00: 00 05-28 00:00 :00 No 5mg QD Take 1 tablet (5 mg total) by mouth daily. [facility] lisinopriL (PRINIVIL,Z ESTRIL) 5 MG tablet 0 -15 00:00: 00 05-28 00:00 :00 No 5mg QD Take 1 tablet (5 mg total) by mouth daily. [facility] lisinopriL (PRINIVIL,Z ESTRIL) 5 MG tablet 2022-0 9-15 00:00: 00 05-28 00:00 :00 No 5mg QD Take 1 tablet (5 mg total) by mouth daily. [facility] lisinopriL (PRINIVIL,Z ESTRIL) 5 MG tablet 2022-0 9-15 00:00: 00 05-28 00:00 :00 No 5mg QD Take 1 tablet (5 mg total) by mouth daily. [facility] lisinopriL (PRINIVIL,Z ESTRIL) 5 MG tablet 2022-0 9-15 00:00: 00 05-28 00:00 :00 No 5mg QD Take 1 tablet (5 mg total) by mouth daily. [facility] lisinopriL (PRINIVIL,Z ESTRIL) 5 MG tablet 2022-0 9-15 00:00: 00 05-28 00:00 :00 No 5mg QD Take 1 tablet (5 mg total) by mouth daily. [facility] lisinopriL (PRINIVIL,Z ESTRIL) 5 MG tablet 2022-0 9-15 00:00: 00 05-28 00:00 :00 No 5mg QD Take 1 tablet (5 mg total) by mouth daily. [facility] lisinopriL (PRINIVIL,Z ESTRIL) 5 MG tablet 2022-0 9-15 00:00: 00 05-28 00:00 :00 No 5mg QD Take 1 tablet (5 mg total) by mouth daily. [facility] lisinopriL (PRINIVIL,Z ESTRIL) 5 MG tablet 2022-0 9-15 00:00: 00 05-28 00:00 :00 No 5mg QD Take 1 tablet (5 mg total) by mouth daily. [facility] lisinopriL (PRINIVIL,Z ESTRIL) 5 MG tablet 2022-0 9-15 00:00: 00 05-28 00:00 :00 No 5mg QD Take 1 tablet (5 mg total) by mouth daily. [facility] lisinopriL (PRINIVIL,Z ESTRIL) 5 MG tablet 2022-0 9-15 00:00: 00 05-28 00:00 :00 No 5mg QD Take 1 tablet (5 mg total) by mouth daily. [facility] lisinopriL (PRINIVIL,Z ESTRIL) 5 MG tablet 2022-0 9-15 00:00: 00 05-28 00:00 :00 No 5mg QD Take 1 tablet (5 mg total) by mouth daily. [facility] lisinopriL (PRINIVIL,Z ESTRIL) 5 MG tablet 2022-0 9-15 00:00: 00 05-28 00:00 :00 No 5mg QD Take 1 tablet (5 mg total) by mouth daily. [facility] lisinopriL (PRINIVIL,Z ESTRIL) 5 MG tablet 2022-0 9-15 00:00: 00 05-28 00:00 :00 No 5mg QD Take 1 tablet (5 mg total) by mouth daily. [facility] lisinopriL (PRINIVIL,Z ESTRIL) 5 MG tablet 2022-0 9-15 00:00: 00 05-28 00:00 :00 No 5mg QD Take 1 tablet (5 mg total) by mouth daily. [facility] lisinopriL (PRINIVIL,Z ESTRIL) 5 MG tablet 2022-0 9-15 00:00: 00 05-28 00:00 :00 No 5mg QD Take 1 tablet (5 mg total) by mouth daily. [facility] lisinopriL (PRINIVIL,Z ESTRIL) 5 MG tablet 2022-0 9-15 00:00: 00 05-28 00:00 :00 No 5mg QD Take 1 tablet (5 mg total) by mouth daily. [facility] lisinopriL (PRINIVIL,Z ESTRIL) 5 MG tablet 2022-0 9-15 00:00: 00 05-28 00:00 :00 No 5mg QD Take 1 tablet (5 mg total) by mouth daily. [facility] lisinopriL (PRINIVIL,Z ESTRIL) 5 MG tablet 2022-0 9-15 00:00: 00 05-28 00:00 :00 No 5mg QD Take 1 tablet (5 mg total) by mouth daily. [facility] lisinopriL (PRINIVIL,Z ESTRIL) 5 MG tablet 0 -15 00:00: 00 05-28 00:00 :00 No 5mg QD Take 1 tablet (5 mg total) by mouth daily. [facility] lisinopriL (PRINIVIL,Z ESTRIL) 5 MG tablet 0 -15 00:00: 00 05-28 00:00 :00 No 5mg QD Take 1 tablet (5 mg total) by mouth daily. [facility] lisinopriL (PRINIVIL,Z ESTRIL) 5 MG tablet 2022-0 -15 00:00: 00 05-28 00:00 :00 No 5mg QD Take 1 tablet (5 mg total) by mouth daily. [facility] lisinopriL (PRINIVIL,Z ESTRIL) 5 MG tablet 0 -15 00:00: 00 05-28 00:00 :00 No 5mg QD Take 1 tablet (5 mg total) by mouth daily. [facility] clonazePAM (KlonoPIN) 0.5 MG tablet 15 00:00: 00 05-03 23:59 :00 No .25mg Take 0.5 tablets (0.25 mg total) by mouth 2 (two) times daily as needed for Anxiety for up to 30 days. Max Daily Amount: 0.5 mg [facility] clonazePAM (KlonoPIN) 0.5 MG tablet 15 00:00: 00 05-03 23:59 :00 No .25mg Take 0.5 tablets (0.25 mg total) by mouth 2 (two) times daily as needed for Anxiety for up to 30 days. Max Daily Amount: 0.5 mg [facility] clonazePAM (KlonoPIN) 0.5 MG tablet -15 00:00: 00 05-03 23:59 :00 No .25mg Take 0.5 tablets (0.25 mg total) by mouth 2 (two) times daily as needed for Anxiety for up to 30 days. Max Daily Amount: 0.5 mg [facility] clonazePAM (KlonoPIN) 0.5 MG tablet 04-03 00:00: 00 05-03 23:59 :00 No .25mg Take 0.5 tablets (0.25 mg total) by mouth 2 (two) times daily as needed for Anxiety for up to 30 days. Max Daily Amount: 0.5 mg [facility] clonazePAM (KlonoPIN) 0.5 MG tablet 04-03 00:00: 00 05-03 23:59 :00 No .25mg Take 0.5 tablets (0.25 mg total) by mouth 2 (two) times daily as needed for Anxiety for up to 30 days. Max Daily Amount: 0.5 mg [facility] clonazePAM (KlonoPIN) 0.5 MG tablet 04-03 00:00: 00 05-03 23:59 :00 No .25mg Take 0.5 tablets (0.25 mg total) by mouth 2 (two) times daily as needed for Anxiety for up to 30 days. Max Daily Amount: 0.5 mg [facility] clonazePAM (KlonoPIN) 0.5 MG tablet 04-03 00:00: 00 05-03 23:59 :00 No .25mg Take 0.5 tablets (0.25 mg total) by mouth 2 (two) times daily as needed for Anxiety for up to 30 days. Max Daily Amount: 0.5 mg [facility] clonazePAM (KlonoPIN) 0.5 MG tablet 04-03 00:00: 00 05-03 23:59 :00 No .25mg Take 0.5 tablets (0.25 mg total) by mouth 2 (two) times daily as needed for Anxiety for up to 30 days. Max Daily Amount: 0.5 mg [facility] clonazePAM (KlonoPIN) 0.5 MG tablet 04-03 00:00: 00 05-03 23:59 :00 No .25mg Take 0.5 tablets (0.25 mg total) by mouth 2 (two) times daily as needed for Anxiety for up to 30 days. Max Daily Amount: 0.5 mg [facility] clonazePAM (KlonoPIN) 0.5 MG tablet 04-03 00:00: 00 05-03 23:59 :00 No .25mg Take 0.5 tablets (0.25 mg total) by mouth 2 (two) times daily as needed for Anxiety for up to 30 days. Max Daily Amount: 0.5 mg [facility] clonazePAM (KlonoPIN) 0.5 MG tablet 04-03 00:00: 00 05-03 23:59 :00 No .25mg Take 0.5 tablets (0.25 mg total) by mouth 2 (two) times daily as needed for Anxiety for up to 30 days. Max Daily Amount: 0.5 mg [facility] clonazePAM (KlonoPIN) 0.5 MG tablet 04-03 00:00: 00 05-03 23:59 :00 No .25mg Take 0.5 tablets (0.25 mg total) by mouth 2 (two) times daily as needed for Anxiety for up to 30 days. Max Daily Amount: 0.5 mg [facility] clonazePAM (KlonoPIN) 0.5 MG tablet 04-03 00:00: 00 05-03 23:59 :00 No .25mg Take 0.5 tablets (0.25 mg total) by mouth 2 (two) times daily as needed for Anxiety for up to 30 days. Max Daily Amount: 0.5 mg [facility] clonazePAM (KlonoPIN) 0.5 MG tablet 0 04-03 00:00: 00 05-03 23:59 :00 No .25mg Take 0.5 tablets (0.25 mg total) by mouth 2 (two) times daily as needed for Anxiety for up to 30 days. Max Daily Amount: 0.5 mg [facility] clonazePAM (KlonoPIN) 0.5 MG tablet 0 04-03 00:00: 00 05-03 23:59 :00 No .25mg Take 0.5 tablets (0.25 mg total) by mouth 2 (two) times daily as needed for Anxiety for up to 30 days. Max Daily Amount: 0.5 mg [facility] clonazePAM (KlonoPIN) 0.5 MG tablet 15 00:00: 00 05-03 23:59 :00 No .25mg Take 0.5 tablets (0.25 mg total) by mouth 2 (two) times daily as needed for Anxiety for up to 30 days. Max Daily Amount: 0.5 mg [facility] clonazePAM (KlonoPIN) 0.5 MG tablet 04-03 00:00: 00 05-03 23:59 :00 No .25mg Take 0.5 tablets (0.25 mg total) by mouth 2 (two) times daily as needed for Anxiety for up to 30 days. Max Daily Amount: 0.5 mg [facility] clonazePAM (KlonoPIN) 0.5 MG tablet 0 04-03 00:00: 00 05-03 23:59 :00 No .25mg Take 0.5 tablets (0.25 mg total) by mouth 2 (two) times daily as needed for Anxiety for up to 30 days. Max Daily Amount: 0.5 mg [facility] clonazePAM (KlonoPIN) 0.5 MG tablet 04-03 00:00: 00 05-03 23:59 :00 No .25mg Take 0.5 tablets (0.25 mg total) by mouth 2 (two) times daily as needed for Anxiety for up to 30 days. Max Daily Amount: 0.5 mg [facility] clonazePAM (KlonoPIN) 0.5 MG tablet 0 15 00:00: 00 05-03 23:59 :00 No .25mg Take 0.5 tablets (0.25 mg total) by mouth 2 (two) times daily as needed for Anxiety for up to 30 days. Max Daily Amount: 0.5 mg [facility] clonazePAM (KlonoPIN) 0.5 MG tablet 0 15 00:00: 00 05-03 23:59 :00 No .25mg Take 0.5 tablets (0.25 mg total) by mouth 2 (two) times daily as needed for Anxiety for up to 30 days. Max Daily Amount: 0.5 mg [facility] clonazePAM (KlonoPIN) 0.5 MG tablet 15 00:00: 00 05-03 23:59 :00 No .25mg Take 0.5 tablets (0.25 mg total) by mouth 2 (two) times daily as needed for Anxiety for up to 30 days. Max Daily Amount: 0.5 mg [facility] clonazePAM (KlonoPIN) 0.5 MG tablet 04-03 00:00: 00 05-03 23:59 :00 No .25mg Take 0.5 tablets (0.25 mg total) by mouth 2 (two) times daily as needed for Anxiety for up to 30 days. Max Daily Amount: 0.5 mg [facility] clonazePAM (KlonoPIN) 0.5 MG tablet 04-03 00:00: 00 05-03 23:59 :00 No .25mg Take 0.5 tablets (0.25 mg total) by mouth 2 (two) times daily as needed for Anxiety for up to 30 days. Max Daily Amount: 0.5 mg [facility] clonazePAM (KlonoPIN) 0.5 MG tablet 04-03 00:00: 00 05-03 23:59 :00 No .25mg Take 0.5 tablets (0.25 mg total) by mouth 2 (two) times daily as needed for Anxiety for up to 30 days. Max Daily Amount: 0.5 mg [facility] clonazePAM (KlonoPIN) 0.5 MG tablet 0 15 00:00: 00 05-03 23:59 :00 No .25mg Take 0.5 tablets (0.25 mg total) by mouth 2 (two) times daily as needed for Anxiety for up to 30 days. Max Daily Amount: 0.5 mg [facility] clonazePAM (KlonoPIN) 0.5 MG tablet 0 15 00:00: 00 05-03 23:59 :00 No .25mg Take 0.5 tablets (0.25 mg total) by mouth 2 (two) times daily as needed for Anxiety for up to 30 days. Max Daily Amount: 0.5 mg [facility] clonazePAM (KlonoPIN) 0.5 MG tablet 0 15 00:00: 00 05-03 23:59 :00 No .25mg Take 0.5 tablets (0.25 mg total) by mouth 2 (two) times daily as needed for Anxiety for up to 30 days. Max Daily Amount: 0.5 mg [facility] clonazePAM (KlonoPIN) 0.5 MG tablet 0 15 00:00: 00 05-03 23:59 :00 No .25mg Take 0.5 tablets (0.25 mg total) by mouth 2 (two) times daily as needed for Anxiety for up to 30 days. Max Daily Amount: 0.5 mg [facility] clonazePAM (KlonoPIN) 0.5 MG tablet 04-03 00:00: 00 05-03 23:59 :00 No .25mg Take 0.5 tablets (0.25 mg total) by mouth 2 (two) times daily as needed for Anxiety for up to 30 days. Max Daily Amount: 0.5 mg [facility] clonazePAM (KlonoPIN) 0.5 MG tablet 04-03 00:00: 00 05-03 23:59 :00 No .25mg Take 0.5 tablets (0.25 mg total) by mouth 2 (two) times daily as needed for Anxiety for up to 30 days. Max Daily Amount: 0.5 mg [facility] clonazePAM (KlonoPIN) 0.5 MG tablet 0 15 00:00: 00 05-03 23:59 :00 No .25mg Take 0.5 tablets (0.25 mg total) by mouth 2 (two) times daily as needed for Anxiety for up to 30 days. Max Daily Amount: 0.5 mg [facility] clonazePAM (KlonoPIN) 0.5 MG tablet 0 15 00:00: 00 05-03 23:59 :00 No .25mg Take 0.5 tablets (0.25 mg total) by mouth 2 (two) times daily as needed for Anxiety for up to 30 days. Max Daily Amount: 0.5 mg [facility] clonazePAM (KlonoPIN) 0.5 MG tablet 15 00:00: 00 05-03 23:59 :00 No .25mg Take 0.5 tablets (0.25 mg total) by mouth 2 (two) times daily as needed for Anxiety for up to 30 days. Max Daily Amount: 0.5 mg [facility] clonazePAM (KlonoPIN) 0.5 MG tablet 04-03 00:00: 00 05-03 23:59 :00 No .25mg Take 0.5 tablets (0.25 mg total) by mouth 2 (two) times daily as needed for Anxiety for up to 30 days. Max Daily Amount: 0.5 mg [facility] clonazePAM (KlonoPIN) 0.5 MG tablet 04-03 00:00: 00 05-03 23:59 :00 No .25mg Take 0.5 tablets (0.25 mg total) by mouth 2 (two) times daily as needed for Anxiety for up to 30 days. Max Daily Amount: 0.5 mg [facility] clonazePAM (KlonoPIN) 0.5 MG tablet 04-03 00:00: 00 05-03 23:59 :00 No .25mg Take 0.5 tablets (0.25 mg total) by mouth 2 (two) times daily as needed for Anxiety for up to 30 days. Max Daily Amount: 0.5 mg [facility] clonazePAM (KlonoPIN) 0.5 MG tablet 0 15 00:00: 00 05-03 23:59 :00 No .25mg Take 0.5 tablets (0.25 mg total) by mouth 2 (two) times daily as needed for Anxiety for up to 30 days. Max Daily Amount: 0.5 mg [facility] clonazePAM (KlonoPIN) 0.5 MG tablet 0 15 00:00: 00 05-03 23:59 :00 No .25mg Take 0.5 tablets (0.25 mg total) by mouth 2 (two) times daily as needed for Anxiety for up to 30 days. Max Daily Amount: 0.5 mg [facility] HYDROcodone -acetaminop hen (NORCO 10-325) 10-325 mg per tablet 04-03 00:00: 00 04-13 23:59 :00 No 1{tbl} Take 1 tablet by mouth every 6 (six) hours as needed for up to 10 days. Max Daily Amount: 4 tablets [facility] methocarbam oL (ROBAXIN) 500 MG tablet 04-03 00:00: 00 04-13 23:59 :00 No 500mg Q.25D Take 1 tablet (500 mg total) by mouth 4 (four) times daily for 10 days. [facility] HYDROcodone -acetaminop hen (NORCO 10-325) 10-325 mg per tablet 04-03 00:00: 00 04-13 23:59 :00 No 1{tbl} Take 1 tablet by mouth every 6 (six) hours as needed for up to 10 days. Max Daily Amount: 4 tablets [facility] methocarbam oL (ROBAXIN) 500 MG tablet 04-03 00:00: 00 04-13 23:59 :00 No 500mg Q.25D Take 1 tablet (500 mg total) by mouth 4 (four) times daily for 10 days. [facility] HYDROcodone -acetaminop hen (NORCO 10-325) 10-325 mg per tablet 04-03 00:00: 00 04-13 23:59 :00 No 1{tbl} Take 1 tablet by mouth every 6 (six) hours as needed for up to 10 days. Max Daily Amount: 4 tablets [facility] methocarbam oL (ROBAXIN) 500 MG tablet 04-03 00:00: 00 04-13 23:59 :00 No 500mg Q.25D Take 1 tablet (500 mg total) by mouth 4 (four) times daily for 10 days. [facility] HYDROcodone -acetaminop hen (NORCO 10-325) 10-325 mg per tablet 04-03 00:00: 00 04-13 23:59 :00 No 1{tbl} Take 1 tablet by mouth every 6 (six) hours as needed for up to 10 days. Max Daily Amount: 4 tablets [facility] methocarbam oL (ROBAXIN) 500 MG tablet 04-03 00:00: 00 04-13 23:59 :00 No 500mg Q.25D Take 1 tablet (500 mg total) by mouth 4 (four) times daily for 10 days. [facility] HYDROcodone -acetaminop hen (NORCO 10-325) 10-325 mg per tablet 04-03 00:00: 00 04-13 23:59 :00 No 1{tbl} Take 1 tablet by mouth every 6 (six) hours as needed for up to 10 days. Max Daily Amount: 4 tablets [facility] methocarbam oL (ROBAXIN) 500 MG tablet 04-03 00:00: 00 04-13 23:59 :00 No 500mg Q.25D Take 1 tablet (500 mg total) by mouth 4 (four) times daily for 10 days. [facility] HYDROcodone -acetaminop hen (NORCO 10-325) 10-325 mg per tablet 04-03 00:00: 00 04-13 23:59 :00 No 1{tbl} Take 1 tablet by mouth every 6 (six) hours as needed for up to 10 days. Max Daily Amount: 4 tablets [facility] methocarbam oL (ROBAXIN) 500 MG tablet 04-03 00:00: 00 04-13 23:59 :00 No 500mg Q.25D Take 1 tablet (500 mg total) by mouth 4 (four) times daily for 10 days. [facility] HYDROcodone -acetaminop hen (NORCO 10-325) 10-325 mg per tablet 04-03 00:00: 00 04-13 23:59 :00 No 1{tbl} Take 1 tablet by mouth every 6 (six) hours as needed for up to 10 days. Max Daily Amount: 4 tablets [facility] methocarbam oL (ROBAXIN) 500 MG tablet 04-03 00:00: 00 04-13 23:59 :00 No 500mg Q.25D Take 1 tablet (500 mg total) by mouth 4 (four) times daily for 10 days. [facility] HYDROcodone -acetaminop hen (NORCO 10-325) 10-325 mg per tablet 04-03 00:00: 00 04-13 23:59 :00 No 1{tbl} Take 1 tablet by mouth every 6 (six) hours as needed for up to 10 days. Max Daily Amount: 4 tablets [facility] methocarbam oL (ROBAXIN) 500 MG tablet 04-03 00:00: 00 04-13 23:59 :00 No 500mg Q.25D Take 1 tablet (500 mg total) by mouth 4 (four) times daily for 10 days. [facility] HYDROcodone -acetaminop hen (NORCO 10-325) 10-325 mg per tablet 04-03 00:00: 00 04-13 23:59 :00 No 1{tbl} Take 1 tablet by mouth every 6 (six) hours as needed for up to 10 days. Max Daily Amount: 4 tablets [facility] methocarbam oL (ROBAXIN) 500 MG tablet 04-03 00:00: 00 04-13 23:59 :00 No 500mg Q.25D Take 1 tablet (500 mg total) by mouth 4 (four) times daily for 10 days. [facility] HYDROcodone -acetaminop hen (NORCO 10-325) 10-325 mg per tablet 04-03 00:00: 00 04-13 23:59 :00 No 1{tbl} Take 1 tablet by mouth every 6 (six) hours as needed for up to 10 days. Max Daily Amount: 4 tablets [facility] methocarbam oL (ROBAXIN) 500 MG tablet 04-03 00:00: 00 04-13 23:59 :00 No 500mg Q.25D Take 1 tablet (500 mg total) by mouth 4 (four) times daily for 10 days. [facility] HYDROcodone -acetaminop hen (NORCO 10-325) 10-325 mg per tablet 04-03 00:00: 00 04-13 23:59 :00 No 1{tbl} Take 1 tablet by mouth every 6 (six) hours as needed for up to 10 days. Max Daily Amount: 4 tablets [facility] methocarbam oL (ROBAXIN) 500 MG tablet 04-03 00:00: 00 04-13 23:59 :00 No 500mg Q.25D Take 1 tablet (500 mg total) by mouth 4 (four) times daily for 10 days. [facility] HYDROcodone -acetaminop hen (NORCO 10-325) 10-325 mg per tablet 04-03 00:00: 00 04-13 23:59 :00 No 1{tbl} Take 1 tablet by mouth every 6 (six) hours as needed for up to 10 days. Max Daily Amount: 4 tablets [facility] methocarbam oL (ROBAXIN) 500 MG tablet 04-03 00:00: 00 04-13 23:59 :00 No 500mg Q.25D Take 1 tablet (500 mg total) by mouth 4 (four) times daily for 10 days. [facility] HYDROcodone -acetaminop hen (NORCO 10-325) 10-325 mg per tablet 04-03 00:00: 00 04-13 23:59 :00 No 1{tbl} Take 1 tablet by mouth every 6 (six) hours as needed for up to 10 days. Max Daily Amount: 4 tablets [facility] methocarbam oL (ROBAXIN) 500 MG tablet 04-03 00:00: 00 04-13 23:59 :00 No 500mg Q.25D Take 1 tablet (500 mg total) by mouth 4 (four) times daily for 10 days. [facility] HYDROcodone -acetaminop hen (NORCO 10-325) 10-325 mg per tablet 04-03 00:00: 00 04-13 23:59 :00 No 1{tbl} Take 1 tablet by mouth every 6 (six) hours as needed for up to 10 days. Max Daily Amount: 4 tablets [facility] methocarbam oL (ROBAXIN) 500 MG tablet 04-03 00:00: 00 04-13 23:59 :00 No 500mg Q.25D Take 1 tablet (500 mg total) by mouth 4 (four) times daily for 10 days. [facility] HYDROcodone -acetaminop hen (NORCO 10-325) 10-325 mg per tablet 04-03 00:00: 00 04-13 23:59 :00 No 1{tbl} Take 1 tablet by mouth every 6 (six) hours as needed for up to 10 days. Max Daily Amount: 4 tablets [facility] methocarbam oL (ROBAXIN) 500 MG tablet 04-03 00:00: 00 04-13 23:59 :00 No 500mg Q.25D Take 1 tablet (500 mg total) by mouth 4 (four) times daily for 10 days. [facility] HYDROcodone -acetaminop hen (NORCO 10-325) 10-325 mg per tablet 04-03 00:00: 00 04-13 23:59 :00 No 1{tbl} Take 1 tablet by mouth every 6 (six) hours as needed for up to 10 days. Max Daily Amount: 4 tablets [facility] methocarbam oL (ROBAXIN) 500 MG tablet 04-03 00:00: 00 04-13 23:59 :00 No 500mg Q.25D Take 1 tablet (500 mg total) by mouth 4 (four) times daily for 10 days. [facility] HYDROcodone -acetaminop hen (NORCO 10-325) 10-325 mg per tablet 04-03 00:00: 00 04-13 23:59 :00 No 1{tbl} Take 1 tablet by mouth every 6 (six) hours as needed for up to 10 days. Max Daily Amount: 4 tablets [facility] methocarbam oL (ROBAXIN) 500 MG tablet 04-03 00:00: 00 04-13 23:59 :00 No 500mg Q.25D Take 1 tablet (500 mg total) by mouth 4 (four) times daily for 10 days. [facility] HYDROcodone -acetaminop hen (NORCO 10-325) 10-325 mg per tablet 04-03 00:00: 00 04-13 23:59 :00 No 1{tbl} Take 1 tablet by mouth every 6 (six) hours as needed for up to 10 days. Max Daily Amount: 4 tablets [facility] methocarbam oL (ROBAXIN) 500 MG tablet 04-03 00:00: 00 04-13 23:59 :00 No 500mg Q.25D Take 1 tablet (500 mg total) by mouth 4 (four) times daily for 10 days. [facility] HYDROcodone -acetaminop hen (NORCO 10-325) 10-325 mg per tablet 04-03 00:00: 00 04-13 23:59 :00 No 1{tbl} Take 1 tablet by mouth every 6 (six) hours as needed for up to 10 days. Max Daily Amount: 4 tablets [facility] methocarbam oL (ROBAXIN) 500 MG tablet 04-03 00:00: 00 04-13 23:59 :00 No 500mg Q.25D Take 1 tablet (500 mg total) by mouth 4 (four) times daily for 10 days. [facility] HYDROcodone -acetaminop hen (NORCO 10-325) 10-325 mg per tablet 04-03 00:00: 00 04-13 23:59 :00 No 1{tbl} Take 1 tablet by mouth every 6 (six) hours as needed for up to 10 days. Max Daily Amount: 4 tablets [facility] methocarbam oL (ROBAXIN) 500 MG tablet 04-03 00:00: 00 04-13 23:59 :00 No 500mg Q.25D Take 1 tablet (500 mg total) by mouth 4 (four) times daily for 10 days. [facility] HYDROcodone -acetaminop hen (NORCO 10-325) 10-325 mg per tablet 04-03 00:00: 00 04-13 23:59 :00 No 1{tbl} Take 1 tablet by mouth every 6 (six) hours as needed for up to 10 days. Max Daily Amount: 4 tablets [facility] methocarbam oL (ROBAXIN) 500 MG tablet 04-03 00:00: 00 04-13 23:59 :00 No 500mg Q.25D Take 1 tablet (500 mg total) by mouth 4 (four) times daily for 10 days. [facility] HYDROcodone -acetaminop hen (NORCO 10-325) 10-325 mg per tablet 04-03 00:00: 00 04-13 23:59 :00 No 1{tbl} Take 1 tablet by mouth every 6 (six) hours as needed for up to 10 days. Max Daily Amount: 4 tablets [facility] methocarbam oL (ROBAXIN) 500 MG tablet 04-03 00:00: 00 04-13 23:59 :00 No 500mg Q.25D Take 1 tablet (500 mg total) by mouth 4 (four) times daily for 10 days. [facility] HYDROcodone -acetaminop hen (NORCO 10-325) 10-325 mg per tablet 04-03 00:00: 00 04-13 23:59 :00 No 1{tbl} Take 1 tablet by mouth every 6 (six) hours as needed for up to 10 days. Max Daily Amount: 4 tablets [facility] methocarbam oL (ROBAXIN) 500 MG tablet 04-03 00:00: 00 04-13 23:59 :00 No 500mg Q.25D Take 1 tablet (500 mg total) by mouth 4 (four) times daily for 10 days. [facility] HYDROcodone -acetaminop hen (NORCO 10-325) 10-325 mg per tablet 04-03 00:00: 00 04-13 23:59 :00 No 1{tbl} Take 1 tablet by mouth every 6 (six) hours as needed for up to 10 days. Max Daily Amount: 4 tablets [facility] methocarbam oL (ROBAXIN) 500 MG tablet 04-03 00:00: 00 04-13 23:59 :00 No 500mg Q.25D Take 1 tablet (500 mg total) by mouth 4 (four) times daily for 10 days. [facility] HYDROcodone -acetaminop hen (NORCO 10-325) 10-325 mg per tablet 04-03 00:00: 00 04-13 23:59 :00 No 1{tbl} Take 1 tablet by mouth every 6 (six) hours as needed for up to 10 days. Max Daily Amount: 4 tablets [facility] methocarbam oL (ROBAXIN) 500 MG tablet 04-03 00:00: 00 04-13 23:59 :00 No 500mg Q.25D Take 1 tablet (500 mg total) by mouth 4 (four) times daily for 10 days. [facility] HYDROcodone -acetaminop hen (NORCO 10-325) 10-325 mg per tablet 04-03 00:00: 00 04-13 23:59 :00 No 1{tbl} Take 1 tablet by mouth every 6 (six) hours as needed for up to 10 days. Max Daily Amount: 4 tablets [facility] methocarbam oL (ROBAXIN) 500 MG tablet 04-03 00:00: 00 04-13 23:59 :00 No 500mg Q.25D Take 1 tablet (500 mg total) by mouth 4 (four) times daily for 10 days. [facility] HYDROcodone -acetaminop hen (NORCO 10-325) 10-325 mg per tablet 04-03 00:00: 00 04-13 23:59 :00 No 1{tbl} Take 1 tablet by mouth every 6 (six) hours as needed for up to 10 days. Max Daily Amount: 4 tablets [facility] methocarbam oL (ROBAXIN) 500 MG tablet 04-03 00:00: 00 04-13 23:59 :00 No 500mg Q.25D Take 1 tablet (500 mg total) by mouth 4 (four) times daily for 10 days. [facility] HYDROcodone -acetaminop hen (NORCO 10-325) 10-325 mg per tablet 04-03 00:00: 00 04-13 23:59 :00 No 1{tbl} Take 1 tablet by mouth every 6 (six) hours as needed for up to 10 days. Max Daily Amount: 4 tablets [facility] methocarbam oL (ROBAXIN) 500 MG tablet 04-03 00:00: 00 04-13 23:59 :00 No 500mg Q.25D Take 1 tablet (500 mg total) by mouth 4 (four) times daily for 10 days. [facility] HYDROcodone -acetaminop hen (NORCO 10-325) 10-325 mg per tablet 04-03 00:00: 00 04-13 23:59 :00 No 1{tbl} Take 1 tablet by mouth every 6 (six) hours as needed for up to 10 days. Max Daily Amount: 4 tablets [facility] methocarbam oL (ROBAXIN) 500 MG tablet 04-03 00:00: 00 04-13 23:59 :00 No 500mg Q.25D Take 1 tablet (500 mg total) by mouth 4 (four) times daily for 10 days. [facility] HYDROcodone -acetaminop hen (NORCO 10-325) 10-325 mg per tablet 04-03 00:00: 00 04-13 23:59 :00 No 1{tbl} Take 1 tablet by mouth every 6 (six) hours as needed for up to 10 days. Max Daily Amount: 4 tablets [facility] methocarbam oL (ROBAXIN) 500 MG tablet 04-03 00:00: 00 04-13 23:59 :00 No 500mg Q.25D Take 1 tablet (500 mg total) by mouth 4 (four) times daily for 10 days. [facility] HYDROcodone -acetaminop hen (NORCO 10-325) 10-325 mg per tablet 04-03 00:00: 00 04-13 23:59 :00 No 1{tbl} Take 1 tablet by mouth every 6 (six) hours as needed for up to 10 days. Max Daily Amount: 4 tablets [facility] methocarbam oL (ROBAXIN) 500 MG tablet 04-03 00:00: 00 04-13 23:59 :00 No 500mg Q.25D Take 1 tablet (500 mg total) by mouth 4 (four) times daily for 10 days. [facility] HYDROcodone -acetaminop hen (NORCO 10-325) 10-325 mg per tablet 04-03 00:00: 00 04-13 23:59 :00 No 1{tbl} Take 1 tablet by mouth every 6 (six) hours as needed for up to 10 days. Max Daily Amount: 4 tablets [facility] methocarbam oL (ROBAXIN) 500 MG tablet 04-03 00:00: 00 04-13 23:59 :00 No 500mg Q.25D Take 1 tablet (500 mg total) by mouth 4 (four) times daily for 10 days. [facility] HYDROcodone -acetaminop hen (NORCO 10-325) 10-325 mg per tablet 04-03 00:00: 00 04-13 23:59 :00 No 1{tbl} Take 1 tablet by mouth every 6 (six) hours as needed for up to 10 days. Max Daily Amount: 4 tablets [facility] methocarbam oL (ROBAXIN) 500 MG tablet 04-03 00:00: 00 04-13 23:59 :00 No 500mg Q.25D Take 1 tablet (500 mg total) by mouth 4 (four) times daily for 10 days. [facility] HYDROcodone -acetaminop hen (NORCO 10-325) 10-325 mg per tablet 04-03 00:00: 00 04-13 23:59 :00 No 1{tbl} Take 1 tablet by mouth every 6 (six) hours as needed for up to 10 days. Max Daily Amount: 4 tablets [facility] methocarbam oL (ROBAXIN) 500 MG tablet 04-03 00:00: 00 04-13 23:59 :00 No 500mg Q.25D Take 1 tablet (500 mg total) by mouth 4 (four) times daily for 10 days. [facility] HYDROcodone -acetaminop hen (NORCO 10-325) 10-325 mg per tablet 04-03 00:00: 00 04-13 23:59 :00 No 1{tbl} Take 1 tablet by mouth every 6 (six) hours as needed for up to 10 days. Max Daily Amount: 4 tablets [facility] methocarbam oL (ROBAXIN) 500 MG tablet 04-03 00:00: 00 04-13 23:59 :00 No 500mg Q.25D Take 1 tablet (500 mg total) by mouth 4 (four) times daily for 10 days. [facility] HYDROcodone -acetaminop hen (NORCO 10-325) 10-325 mg per tablet 04-03 00:00: 00 04-13 23:59 :00 No 1{tbl} Take 1 tablet by mouth every 6 (six) hours as needed for up to 10 days. Max Daily Amount: 4 tablets [facility] methocarbam oL (ROBAXIN) 500 MG tablet 04-03 00:00: 00 04-13 23:59 :00 No 500mg Q.25D Take 1 tablet (500 mg total) by mouth 4 (four) times daily for 10 days. [facility] HYDROcodone -acetaminop hen (NORCO 10-325) 10-325 mg per tablet 04-03 00:00: 00 04-13 23:59 :00 No 1{tbl} Take 1 tablet by mouth every 6 (six) hours as needed for up to 10 days. Max Daily Amount: 4 tablets [facility] methocarbam oL (ROBAXIN) 500 MG tablet 04-03 00:00: 00 04-13 23:59 :00 No 500mg Q.25D Take 1 tablet (500 mg total) by mouth 4 (four) times daily for 10 days. [facility] HYDROcodone -acetaminop hen (NORCO 10-325) 10-325 mg per tablet 04-03 00:00: 00 04-13 23:59 :00 No 1{tbl} Take 1 tablet by mouth every 6 (six) hours as needed for up to 10 days. Max Daily Amount: 4 tablets [facility] methocarbam oL (ROBAXIN) 500 MG tablet 04-03 00:00: 00 04-13 23:59 :00 No 500mg Q.25D Take 1 tablet (500 mg total) by mouth 4 (four) times daily for 10 days. [facility] HYDROcodone -acetaminop hen (NORCO 10-325) 10-325 mg per tablet 04-03 00:00: 00 04-13 23:59 :00 No 1{tbl} Take 1 tablet by mouth every 6 (six) hours as needed for up to 10 days. Max Daily Amount: 4 tablets [facility] methocarbam oL (ROBAXIN) 500 MG tablet 04-03 00:00: 00 04-13 23:59 :00 No 500mg Q.25D Take 1 tablet (500 mg total) by mouth 4 (four) times daily for 10 days. [facility] aspirin 81 MG EC tablet 04-03 00:00: 00 04-03 00:00 :00 No 81mg QD Take 1 tablet (81 mg total) by mouth daily for 90 days. [facility] DULoxetine (CYMBALTA) 30 MG capsule 04-03 00:00: 00 04-03 00:00 :00 No 30mg QD Take 1 capsule (30 mg total) by mouth daily. [facility] furosemide (LASIX) 20 MG tablet 04-03 00:00: 00 04-03 00:00 :00 No 20mg QD Take 1 tablet (20 mg total) by mouth daily. [facility] lisinopriL (PRINIVIL,Z ESTRIL) 5 MG tablet 04-03 00:00: 00 04-03 00:00 :00 No 5mg QD Take 1 tablet (5 mg total) by mouth daily. [facility] lisinopriL (PRINIVIL,Z ESTRIL) 5 MG tablet 04-03 00:00: 00 04-03 00:00 :00 No 5mg QD Take 1 tablet (5 mg total) by mouth daily. [facility] aspirin 81 MG EC tablet 04-03 00:00: 00 04-03 00:00 :00 No 81mg QD Take 1 tablet (81 mg total) by mouth daily for 90 days. [facility] DULoxetine (CYMBALTA) 30 MG capsule 04-03 00:00: 00 04-03 00:00 :00 No 30mg QD Take 1 capsule (30 mg total) by mouth daily. [facility] furosemide (LASIX) 20 MG tablet 04-03 00:00: 00 04-03 00:00 :00 No 20mg QD Take 1 tablet (20 mg total) by mouth daily. [facility] lisinopriL (PRINIVIL,Z ESTRIL) 5 MG tablet 04-03 00:00: 00 04-03 00:00 :00 No 5mg QD Take 1 tablet (5 mg total) by mouth daily. [facility] aspirin 81 MG EC tablet 04-03 00:00: 00 04-03 00:00 :00 No 81mg QD Take 1 tablet (81 mg total) by mouth daily for 90 days. [facility] DULoxetine (CYMBALTA) 30 MG capsule 04-03 00:00: 00 04-03 00:00 :00 No 30mg QD Take 1 capsule (30 mg total) by mouth daily. [facility] furosemide (LASIX) 20 MG tablet 04-03 00:00: 00 04-03 00:00 :00 No 20mg QD Take 1 tablet (20 mg total) by mouth daily. [facility] lisinopriL (PRINIVIL,Z ESTRIL) 5 MG tablet 04-03 00:00: 00 04-03 00:00 :00 No 5mg QD Take 1 tablet (5 mg total) by mouth daily. [facility] aspirin 81 MG EC tablet 04-03 00:00: 00 04-03 00:00 :00 No 81mg QD Take 1 tablet (81 mg total) by mouth daily for 90 days. [facility] DULoxetine (CYMBALTA) 30 MG capsule 04-03 00:00: 00 04-03 00:00 :00 No 30mg QD Take 1 capsule (30 mg total) by mouth daily. [facility] furosemide (LASIX) 20 MG tablet 04-03 00:00: 00 04-03 00:00 :00 No 20mg QD Take 1 tablet (20 mg total) by mouth daily. [facility] lisinopriL (PRINIVIL,Z ESTRIL) 5 MG tablet 04-03 00:00: 00 04-03 00:00 :00 No 5mg QD Take 1 tablet (5 mg total) by mouth daily. [facility] aspirin 81 MG EC tablet 04-03 00:00: 00 04-03 00:00 :00 No 81mg QD Take 1 tablet (81 mg total) by mouth daily for 90 days. [facility] DULoxetine (CYMBALTA) 30 MG capsule 04-03 00:00: 00 04-03 00:00 :00 No 30mg QD Take 1 capsule (30 mg total) by mouth daily. [facility] furosemide (LASIX) 20 MG tablet 04-03 00:00: 00 04-03 00:00 :00 No 20mg QD Take 1 tablet (20 mg total) by mouth daily. [facility] lisinopriL (PRINIVIL,Z ESTRIL) 5 MG tablet 04-03 00:00: 00 04-03 00:00 :00 No 5mg QD Take 1 tablet (5 mg total) by mouth daily. [facility] aspirin 81 MG EC tablet 04-03 00:00: 00 04-03 00:00 :00 No 81mg QD Take 1 tablet (81 mg total) by mouth daily for 90 days. [facility] DULoxetine (CYMBALTA) 30 MG capsule 04-03 00:00: 00 04-03 00:00 :00 No 30mg QD Take 1 capsule (30 mg total) by mouth daily. [facility] furosemide (LASIX) 20 MG tablet 04-03 00:00: 00 04-03 00:00 :00 No 20mg QD Take 1 tablet (20 mg total) by mouth daily. [facility] lisinopriL (PRINIVIL,Z ESTRIL) 5 MG tablet 04-03 00:00: 00 04-03 00:00 :00 No 5mg QD Take 1 tablet (5 mg total) by mouth daily. [facility] aspirin 81 MG EC tablet 04-03 00:00: 00 04-03 00:00 :00 No 81mg QD Take 1 tablet (81 mg total) by mouth daily for 90 days. [facility] DULoxetine (CYMBALTA) 30 MG capsule 04-03 00:00: 00 04-03 00:00 :00 No 30mg QD Take 1 capsule (30 mg total) by mouth daily. [facility] furosemide (LASIX) 20 MG tablet 04-03 00:00: 00 04-03 00:00 :00 No 20mg QD Take 1 tablet (20 mg total) by mouth daily. [facility] aspirin 81 MG EC tablet 04-03 00:00: 00 04-03 00:00 :00 No 81mg QD Take 1 tablet (81 mg total) by mouth daily for 90 days. [facility] DULoxetine (CYMBALTA) 30 MG capsule 04-03 00:00: 00 04-03 00:00 :00 No 30mg QD Take 1 capsule (30 mg total) by mouth daily. [facility] furosemide (LASIX) 20 MG tablet 04-03 00:00: 00 04-03 00:00 :00 No 20mg QD Take 1 tablet (20 mg total) by mouth daily. [facility] lisinopriL (PRINIVIL,Z ESTRIL) 5 MG tablet 04-03 00:00: 00 04-03 00:00 :00 No 5mg QD Take 1 tablet (5 mg total) by mouth daily. [facility] lisinopriL (PRINIVIL,Z ESTRIL) 5 MG tablet 04-03 00:00: 00 04-03 00:00 :00 No 5mg QD Take 1 tablet (5 mg total) by mouth daily. [facility] aspirin 81 MG EC tablet 04-03 00:00: 00 04-03 00:00 :00 No 81mg QD Take 1 tablet (81 mg total) by mouth daily for 90 days. [facility] DULoxetine (CYMBALTA) 30 MG capsule 04-03 00:00: 00 04-03 00:00 :00 No 30mg QD Take 1 capsule (30 mg total) by mouth daily. [facility] furosemide (LASIX) 20 MG tablet 04-03 00:00: 00 04-03 00:00 :00 No 20mg QD Take 1 tablet (20 mg total) by mouth daily. [facility] lisinopriL (PRINIVIL,Z ESTRIL) 5 MG tablet 04-03 00:00: 00 04-03 00:00 :00 No 5mg QD Take 1 tablet (5 mg total) by mouth daily. [facility] aspirin 81 MG EC tablet 04-03 00:00: 00 04-03 00:00 :00 No 81mg QD Take 1 tablet (81 mg total) by mouth daily for 90 days. [facility] DULoxetine (CYMBALTA) 30 MG capsule 04-03 00:00: 00 04-03 00:00 :00 No 30mg QD Take 1 capsule (30 mg total) by mouth daily. [facility] furosemide (LASIX) 20 MG tablet 04-03 00:00: 00 04-03 00:00 :00 No 20mg QD Take 1 tablet (20 mg total) by mouth daily. [facility] lisinopriL (PRINIVIL,Z ESTRIL) 5 MG tablet 04-03 00:00: 00 04-03 00:00 :00 No 5mg QD Take 1 tablet (5 mg total) by mouth daily. [facility] aspirin 81 MG EC tablet 04-03 00:00: 00 04-03 00:00 :00 No 81mg QD Take 1 tablet (81 mg total) by mouth daily for 90 days. [facility] DULoxetine (CYMBALTA) 30 MG capsule 04-03 00:00: 00 04-03 00:00 :00 No 30mg QD Take 1 capsule (30 mg total) by mouth daily. [facility] furosemide (LASIX) 20 MG tablet 04-03 00:00: 00 04-03 00:00 :00 No 20mg QD Take 1 tablet (20 mg total) by mouth daily. [facility] lisinopriL (PRINIVIL,Z ESTRIL) 5 MG tablet 04-03 00:00: 00 04-03 00:00 :00 No 5mg QD Take 1 tablet (5 mg total) by mouth daily. [facility] aspirin 81 MG EC tablet 04-03 00:00: 00 04-03 00:00 :00 No 81mg QD Take 1 tablet (81 mg total) by mouth daily for 90 days. [facility] DULoxetine (CYMBALTA) 30 MG capsule 04-03 00:00: 00 04-03 00:00 :00 No 30mg QD Take 1 capsule (30 mg total) by mouth daily. [facility] furosemide (LASIX) 20 MG tablet 04-03 00:00: 00 04-03 00:00 :00 No 20mg QD Take 1 tablet (20 mg total) by mouth daily. [facility] lisinopriL (PRINIVIL,Z ESTRIL) 5 MG tablet 04-03 00:00: 00 04-03 00:00 :00 No 5mg QD Take 1 tablet (5 mg total) by mouth daily. [facility] aspirin 81 MG EC tablet 04-03 00:00: 00 04-03 00:00 :00 No 81mg QD Take 1 tablet (81 mg total) by mouth daily for 90 days. [facility] DULoxetine (CYMBALTA) 30 MG capsule 04-03 00:00: 00 04-03 00:00 :00 No 30mg QD Take 1 capsule (30 mg total) by mouth daily. [facility] furosemide (LASIX) 20 MG tablet 04-03 00:00: 00 04-03 00:00 :00 No 20mg QD Take 1 tablet (20 mg total) by mouth daily. [facility] lisinopriL (PRINIVIL,Z ESTRIL) 5 MG tablet 04-03 00:00: 00 04-03 00:00 :00 No 5mg QD Take 1 tablet (5 mg total) by mouth daily. [facility] aspirin 81 MG EC tablet 04-03 00:00: 00 04-03 00:00 :00 No 81mg QD Take 1 tablet (81 mg total) by mouth daily for 90 days. [facility] DULoxetine (CYMBALTA) 30 MG capsule 04-03 00:00: 00 04-03 00:00 :00 No 30mg QD Take 1 capsule (30 mg total) by mouth daily. [facility] aspirin 81 MG EC tablet 04-03 00:00: 00 04-03 00:00 :00 No 81mg QD Take 1 tablet (81 mg total) by mouth daily for 90 days. [facility] DULoxetine (CYMBALTA) 30 MG capsule 04-03 00:00: 00 04-03 00:00 :00 No 30mg QD Take 1 capsule (30 mg total) by mouth daily. [facility] furosemide (LASIX) 20 MG tablet 04-03 00:00: 00 04-03 00:00 :00 No 20mg QD Take 1 tablet (20 mg total) by mouth daily. [facility] furosemide (LASIX) 20 MG tablet 04-03 00:00: 00 04-03 00:00 :00 No 20mg QD Take 1 tablet (20 mg total) by mouth daily. [facility] lisinopriL (PRINIVIL,Z ESTRIL) 5 MG tablet 04-03 00:00: 00 04-03 00:00 :00 No 5mg QD Take 1 tablet (5 mg total) by mouth daily. [facility] lisinopriL (PRINIVIL,Z ESTRIL) 5 MG tablet 04-03 00:00: 00 04-03 00:00 :00 No 5mg QD Take 1 tablet (5 mg total) by mouth daily. [facility] aspirin 81 MG EC tablet 04-03 00:00: 00 04-03 00:00 :00 No 81mg QD Take 1 tablet (81 mg total) by mouth daily for 90 days. [facility] DULoxetine (CYMBALTA) 30 MG capsule 04-03 00:00: 00 04-03 00:00 :00 No 30mg QD Take 1 capsule (30 mg total) by mouth daily. [facility] furosemide (LASIX) 20 MG tablet 04-03 00:00: 00 04-03 00:00 :00 No 20mg QD Take 1 tablet (20 mg total) by mouth daily. [facility] lisinopriL (PRINIVIL,Z ESTRIL) 5 MG tablet 04-03 00:00: 00 04-03 00:00 :00 No 5mg QD Take 1 tablet (5 mg total) by mouth daily. [facility] aspirin 81 MG EC tablet 04-03 00:00: 00 04-03 00:00 :00 No 81mg QD Take 1 tablet (81 mg total) by mouth daily for 90 days. [facility] DULoxetine (CYMBALTA) 30 MG capsule 04-03 00:00: 00 04-03 00:00 :00 No 30mg QD Take 1 capsule (30 mg total) by mouth daily. [facility] furosemide (LASIX) 20 MG tablet 04-03 00:00: 00 04-03 00:00 :00 No 20mg QD Take 1 tablet (20 mg total) by mouth daily. [facility] lisinopriL (PRINIVIL,Z ESTRIL) 5 MG tablet 04-03 00:00: 00 04-03 00:00 :00 No 5mg QD Take 1 tablet (5 mg total) by mouth daily. [facility] aspirin 81 MG EC tablet 04-03 00:00: 00 04-03 00:00 :00 No 81mg QD Take 1 tablet (81 mg total) by mouth daily for 90 days. [facility] DULoxetine (CYMBALTA) 30 MG capsule 04-03 00:00: 00 04-03 00:00 :00 No 30mg QD Take 1 capsule (30 mg total) by mouth daily. [facility] furosemide (LASIX) 20 MG tablet 04-03 00:00: 00 04-03 00:00 :00 No 20mg QD Take 1 tablet (20 mg total) by mouth daily. [facility] lisinopriL (PRINIVIL,Z ESTRIL) 5 MG tablet 04-03 00:00: 00 04-03 00:00 :00 No 5mg QD Take 1 tablet (5 mg total) by mouth daily. [facility] aspirin 81 MG EC tablet 04-03 00:00: 00 04-03 00:00 :00 No 81mg QD Take 1 tablet (81 mg total) by mouth daily for 90 days. [facility] DULoxetine (CYMBALTA) 30 MG capsule 04-03 00:00: 00 04-03 00:00 :00 No 30mg QD Take 1 capsule (30 mg total) by mouth daily. [facility] furosemide (LASIX) 20 MG tablet 04-03 00:00: 00 04-03 00:00 :00 No 20mg QD Take 1 tablet (20 mg total) by mouth daily. [facility] lisinopriL (PRINIVIL,Z ESTRIL) 5 MG tablet 04-03 00:00: 00 04-03 00:00 :00 No 5mg QD Take 1 tablet (5 mg total) by mouth daily. [facility] aspirin 81 MG EC tablet 04-03 00:00: 00 04-03 00:00 :00 No 81mg QD Take 1 tablet (81 mg total) by mouth daily for 90 days. [facility] DULoxetine (CYMBALTA) 30 MG capsule 04-03 00:00: 00 04-03 00:00 :00 No 30mg QD Take 1 capsule (30 mg total) by mouth daily. [facility] furosemide (LASIX) 20 MG tablet 04-03 00:00: 00 04-03 00:00 :00 No 20mg QD Take 1 tablet (20 mg total) by mouth daily. [facility] lisinopriL (PRINIVIL,Z ESTRIL) 5 MG tablet 04-03 00:00: 00 04-03 00:00 :00 No 5mg QD Take 1 tablet (5 mg total) by mouth daily. [facility] aspirin 81 MG EC tablet 04-03 00:00: 00 04-03 00:00 :00 No 81mg QD Take 1 tablet (81 mg total) by mouth daily for 90 days. [facility] aspirin 81 MG EC tablet 04-03 00:00: 00 04-03 00:00 :00 No 81mg QD Take 1 tablet (81 mg total) by mouth daily for 90 days. [facility] DULoxetine (CYMBALTA) 30 MG capsule 04-03 00:00: 00 04-03 00:00 :00 No 30mg QD Take 1 capsule (30 mg total) by mouth daily. [facility] furosemide (LASIX) 20 MG tablet 04-03 00:00: 00 04-03 00:00 :00 No 20mg QD Take 1 tablet (20 mg total) by mouth daily. [facility] lisinopriL (PRINIVIL,Z ESTRIL) 5 MG tablet 04-03 00:00: 00 04-03 00:00 :00 No 5mg QD Take 1 tablet (5 mg total) by mouth daily. [facility] DULoxetine (CYMBALTA) 30 MG capsule 04-03 00:00: 00 04-03 00:00 :00 No 30mg QD Take 1 capsule (30 mg total) by mouth daily. [facility] furosemide (LASIX) 20 MG tablet 04-03 00:00: 00 04-03 00:00 :00 No 20mg QD Take 1 tablet (20 mg total) by mouth daily. [facility] lisinopriL (PRINIVIL,Z ESTRIL) 5 MG tablet 04-03 00:00: 00 04-03 00:00 :00 No 5mg QD Take 1 tablet (5 mg total) by mouth daily. [facility] aspirin 81 MG EC tablet 04-03 00:00: 00 04-03 00:00 :00 No 81mg QD Take 1 tablet (81 mg total) by mouth daily for 90 days. [facility] DULoxetine (CYMBALTA) 30 MG capsule 04-03 00:00: 00 04-03 00:00 :00 No 30mg QD Take 1 capsule (30 mg total) by mouth daily. [facility] furosemide (LASIX) 20 MG tablet 04-03 00:00: 00 04-03 00:00 :00 No 20mg QD Take 1 tablet (20 mg total) by mouth daily. [facility] lisinopriL (PRINIVIL,Z ESTRIL) 5 MG tablet 04-03 00:00: 00 04-03 00:00 :00 No 5mg QD Take 1 tablet (5 mg total) by mouth daily. [facility] aspirin 81 MG EC tablet 04-03 00:00: 00 04-03 00:00 :00 No 81mg QD Take 1 tablet (81 mg total) by mouth daily for 90 days. [facility] DULoxetine (CYMBALTA) 30 MG capsule 04-03 00:00: 00 04-03 00:00 :00 No 30mg QD Take 1 capsule (30 mg total) by mouth daily. [facility] furosemide (LASIX) 20 MG tablet 04-03 00:00: 00 04-03 00:00 :00 No 20mg QD Take 1 tablet (20 mg total) by mouth daily. [facility] lisinopriL (PRINIVIL,Z ESTRIL) 5 MG tablet 04-03 00:00: 00 04-03 00:00 :00 No 5mg QD Take 1 tablet (5 mg total) by mouth daily. [facility] aspirin 81 MG EC tablet 04-03 00:00: 00 04-03 00:00 :00 No 81mg QD Take 1 tablet (81 mg total) by mouth daily for 90 days. [facility] DULoxetine (CYMBALTA) 30 MG capsule 04-03 00:00: 00 04-03 00:00 :00 No 30mg QD Take 1 capsule (30 mg total) by mouth daily. [facility] furosemide (LASIX) 20 MG tablet 04-03 00:00: 00 04-03 00:00 :00 No 20mg QD Take 1 tablet (20 mg total) by mouth daily. [facility] lisinopriL (PRINIVIL,Z ESTRIL) 5 MG tablet 04-03 00:00: 00 04-03 00:00 :00 No 5mg QD Take 1 tablet (5 mg total) by mouth daily. [facility] aspirin 81 MG EC tablet 04-03 00:00: 00 04-03 00:00 :00 No 81mg QD Take 1 tablet (81 mg total) by mouth daily for 90 days. [facility] DULoxetine (CYMBALTA) 30 MG capsule 04-03 00:00: 00 04-03 00:00 :00 No 30mg QD Take 1 capsule (30 mg total) by mouth daily. [facility] aspirin 81 MG EC tablet 04-03 00:00: 00 04-03 00:00 :00 No 81mg QD Take 1 tablet (81 mg total) by mouth daily for 90 days. [facility] DULoxetine (CYMBALTA) 30 MG capsule 04-03 00:00: 00 04-03 00:00 :00 No 30mg QD Take 1 capsule (30 mg total) by mouth daily. [facility] furosemide (LASIX) 20 MG tablet 04-03 00:00: 00 04-03 00:00 :00 No 20mg QD Take 1 tablet (20 mg total) by mouth daily. [facility] furosemide (LASIX) 20 MG tablet 04-03 00:00: 00 04-03 00:00 :00 No 20mg QD Take 1 tablet (20 mg total) by mouth daily. [facility] lisinopriL (PRINIVIL,Z ESTRIL) 5 MG tablet 04-03 00:00: 00 04-03 00:00 :00 No 5mg QD Take 1 tablet (5 mg total) by mouth daily. [facility] lisinopriL (PRINIVIL,Z ESTRIL) 5 MG tablet 04-03 00:00: 00 04-03 00:00 :00 No 5mg QD Take 1 tablet (5 mg total) by mouth daily. [facility] aspirin 81 MG EC tablet 04-03 00:00: 00 04-03 00:00 :00 No 81mg QD Take 1 tablet (81 mg total) by mouth daily for 90 days. [facility] DULoxetine (CYMBALTA) 30 MG capsule 04-03 00:00: 00 04-03 00:00 :00 No 30mg QD Take 1 capsule (30 mg total) by mouth daily. [facility] furosemide (LASIX) 20 MG tablet 04-03 00:00: 00 04-03 00:00 :00 No 20mg QD Take 1 tablet (20 mg total) by mouth daily. [facility] lisinopriL (PRINIVIL,Z ESTRIL) 5 MG tablet 04-03 00:00: 00 04-03 00:00 :00 No 5mg QD Take 1 tablet (5 mg total) by mouth daily. [facility] aspirin 81 MG EC tablet 04-03 00:00: 00 04-03 00:00 :00 No 81mg QD Take 1 tablet (81 mg total) by mouth daily for 90 days. [facility] DULoxetine (CYMBALTA) 30 MG capsule 04-03 00:00: 00 04-03 00:00 :00 No 30mg QD Take 1 capsule (30 mg total) by mouth daily. [facility] furosemide (LASIX) 20 MG tablet 04-03 00:00: 00 04-03 00:00 :00 No 20mg QD Take 1 tablet (20 mg total) by mouth daily. [facility] lisinopriL (PRINIVIL,Z ESTRIL) 5 MG tablet 04-03 00:00: 00 04-03 00:00 :00 No 5mg QD Take 1 tablet (5 mg total) by mouth daily. [facility] aspirin 81 MG EC tablet 04-03 00:00: 00 04-03 00:00 :00 No 81mg QD Take 1 tablet (81 mg total) by mouth daily for 90 days. [facility] DULoxetine (CYMBALTA) 30 MG capsule 04-03 00:00: 00 04-03 00:00 :00 No 30mg QD Take 1 capsule (30 mg total) by mouth daily. [facility] furosemide (LASIX) 20 MG tablet 04-03 00:00: 00 04-03 00:00 :00 No 20mg QD Take 1 tablet (20 mg total) by mouth daily. [facility] lisinopriL (PRINIVIL,Z ESTRIL) 5 MG tablet 04-03 00:00: 00 04-03 00:00 :00 No 5mg QD Take 1 tablet (5 mg total) by mouth daily. [facility] aspirin 81 MG EC tablet 04-03 00:00: 00 04-03 00:00 :00 No 81mg QD Take 1 tablet (81 mg total) by mouth daily for 90 days. [facility] DULoxetine (CYMBALTA) 30 MG capsule 04-03 00:00: 00 04-03 00:00 :00 No 30mg QD Take 1 capsule (30 mg total) by mouth daily. [facility] furosemide (LASIX) 20 MG tablet 04-03 00:00: 00 04-03 00:00 :00 No 20mg QD Take 1 tablet (20 mg total) by mouth daily. [facility] lisinopriL (PRINIVIL,Z ESTRIL) 5 MG tablet 04-03 00:00: 00 04-03 00:00 :00 No 5mg QD Take 1 tablet (5 mg total) by mouth daily. [facility] aspirin 81 MG EC tablet 04-03 00:00: 00 04-03 00:00 :00 No 81mg QD Take 1 tablet (81 mg total) by mouth daily for 90 days. [facility] DULoxetine (CYMBALTA) 30 MG capsule 04-03 00:00: 00 04-03 00:00 :00 No 30mg QD Take 1 capsule (30 mg total) by mouth daily. [facility] furosemide (LASIX) 20 MG tablet 04-03 00:00: 00 04-03 00:00 :00 No 20mg QD Take 1 tablet (20 mg total) by mouth daily. [facility] lisinopriL (PRINIVIL,Z ESTRIL) 5 MG tablet 04-03 00:00: 00 04-03 00:00 :00 No 5mg QD Take 1 tablet (5 mg total) by mouth daily. [facility] aspirin 81 MG EC tablet 04-03 00:00: 00 04-03 00:00 :00 No 81mg QD Take 1 tablet (81 mg total) by mouth daily for 90 days. [facility] DULoxetine (CYMBALTA) 30 MG capsule 04-03 00:00: 00 04-03 00:00 :00 No 30mg QD Take 1 capsule (30 mg total) by mouth daily. [facility] furosemide (LASIX) 20 MG tablet 04-03 00:00: 00 04-03 00:00 :00 No 20mg QD Take 1 tablet (20 mg total) by mouth daily. [facility] lisinopriL (PRINIVIL,Z ESTRIL) 5 MG tablet 04-03 00:00: 00 04-03 00:00 :00 No 5mg QD Take 1 tablet (5 mg total) by mouth daily. [facility] aspirin 81 MG EC tablet 04-03 00:00: 00 04-03 00:00 :00 No 81mg QD Take 1 tablet (81 mg total) by mouth daily for 90 days. [facility] DULoxetine (CYMBALTA) 30 MG capsule 04-03 00:00: 00 04-03 00:00 :00 No 30mg QD Take 1 capsule (30 mg total) by mouth daily. [facility] furosemide (LASIX) 20 MG tablet 04-03 00:00: 00 04-03 00:00 :00 No 20mg QD Take 1 tablet (20 mg total) by mouth daily. [facility] lisinopriL (PRINIVIL,Z ESTRIL) 5 MG tablet 04-03 00:00: 00 04-03 00:00 :00 No 5mg QD Take 1 tablet (5 mg total) by mouth daily. [facility] aspirin 81 MG EC tablet 04-03 00:00: 00 04-03 00:00 :00 No 81mg QD Take 1 tablet (81 mg total) by mouth daily for 90 days. [facility] DULoxetine (CYMBALTA) 30 MG capsule 04-03 00:00: 00 04-03 00:00 :00 No 30mg QD Take 1 capsule (30 mg total) by mouth daily. [facility] furosemide (LASIX) 20 MG tablet 04-03 00:00: 00 04-03 00:00 :00 No 20mg QD Take 1 tablet (20 mg total) by mouth daily. [facility] lisinopriL (PRINIVIL,Z ESTRIL) 5 MG tablet 04-03 00:00: 00 04-03 00:00 :00 No 5mg QD Take 1 tablet (5 mg total) by mouth daily. [facility] aspirin 81 MG EC tablet 04-03 00:00: 00 04-03 00:00 :00 No 81mg QD Take 1 tablet (81 mg total) by mouth daily for 90 days. [facility] DULoxetine (CYMBALTA) 30 MG capsule 04-03 00:00: 00 04-03 00:00 :00 No 30mg QD Take 1 capsule (30 mg total) by mouth daily. [facility] furosemide (LASIX) 20 MG tablet 04-03 00:00: 00 04-03 00:00 :00 No 20mg QD Take 1 tablet (20 mg total) by mouth daily. [facility] lisinopriL (PRINIVIL,Z ESTRIL) 5 MG tablet 04-03 00:00: 00 04-03 00:00 :00 No 5mg QD Take 1 tablet (5 mg total) by mouth daily. [facility] aspirin 81 MG EC tablet 04-03 00:00: 00 04-03 00:00 :00 No 81mg QD Take 1 tablet (81 mg total) by mouth daily for 90 days. [facility] DULoxetine (CYMBALTA) 30 MG capsule 04-03 00:00: 00 04-03 00:00 :00 No 30mg QD Take 1 capsule (30 mg total) by mouth daily. [facility] furosemide (LASIX) 20 MG tablet 04-03 00:00: 00 04-03 00:00 :00 No 20mg QD Take 1 tablet (20 mg total) by mouth daily. [facility] lisinopriL (PRINIVIL,Z ESTRIL) 5 MG tablet 04-03 00:00: 00 04-03 00:00 :00 No 5mg QD Take 1 tablet (5 mg total) by mouth daily. [facility] aspirin 81 MG EC tablet 04-03 00:00: 00 04-03 00:00 :00 No 81mg QD Take 1 tablet (81 mg total) by mouth daily for 90 days. [facility] DULoxetine (CYMBALTA) 30 MG capsule 04-03 00:00: 00 04-03 00:00 :00 No 30mg QD Take 1 capsule (30 mg total) by mouth daily. [facility] furosemide (LASIX) 20 MG tablet 04-03 00:00: 00 04-03 00:00 :00 No 20mg QD Take 1 tablet (20 mg total) by mouth daily. [facility] lisinopriL (PRINIVIL,Z ESTRIL) 5 MG tablet 04-03 00:00: 00 04-03 00:00 :00 No 5mg QD Take 1 tablet (5 mg total) by mouth daily. [facility] aspirin 81 MG EC tablet 04-03 00:00: 00 04-03 00:00 :00 No 81mg QD Take 1 tablet (81 mg total) by mouth daily for 90 days. [facility] DULoxetine (CYMBALTA) 30 MG capsule 04-03 00:00: 00 04-03 00:00 :00 No 30mg QD Take 1 capsule (30 mg total) by mouth daily. [facility] furosemide (LASIX) 20 MG tablet 04-03 00:00: 00 04-03 00:00 :00 No 20mg QD Take 1 tablet (20 mg total) by mouth daily. [facility] gabapentin (NEURONTIN) 300 MG capsule 04-02 00:00: 00 04-03 00:00 :00 No 300mg Q.[id number] 3D Take 1 capsule (300 mg total) by mouth 3 (three) times daily for 90 days. [facility] divalproex (DEPAKOTE) 500 MG EC tablet 04-02 00:00: 00 04-03 00:00 :00 No 500mg Q.5D Take 1 tablet (500 mg total) by mouth 2 (two) times daily for 90 days. [facility] clonazePAM (KlonoPIN) 0.5 MG tablet 04-02 00:00: 00 04-03 00:00 :00 No .25mg Take 0.5 tablets (0.25 mg total) by mouth 2 (two) times daily as needed for Anxiety for up to 30 days. Max Daily Amount: 0.5 mg [facility] gabapentin (NEURONTIN) 300 MG capsule 04-02 00:00: 00 04-03 00:00 :00 No 300mg Q.[id number] 3D Take 1 capsule (300 mg total) by mouth 3 (three) times daily for 90 days. [facility] HYDROcodone -acetaminop hen (NORCO 10-325) 10-325 mg per tablet 04-02 00:00: 00 04-03 00:00 :00 No 1{tbl} Take 1 tablet by mouth every 6 (six) hours as needed for up to 10 days. Max Daily Amount: 4 tablets [facility] HYDROcodone -acetaminop hen (NORCO 10-325) 10-325 mg per tablet 04-02 00:00: 00 04-03 00:00 :00 No 1{tbl} Take 1 tablet by mouth every 6 (six) hours as needed for up to 10 days. Max Daily Amount: 4 tablets [facility] methocarbam oL (ROBAXIN) 500 MG tablet 04-02 00:00: 00 04-03 00:00 :00 No 500mg Q.25D Take 1 tablet (500 mg total) by mouth 4 (four) times daily for 10 days. [facility] methocarbam oL (ROBAXIN) 500 MG tablet 04-02 00:00: 00 04-03 00:00 :00 No 500mg Q.25D Take 1 tablet (500 mg total) by mouth 4 (four) times daily for 10 days. [facility] divalproex (DEPAKOTE) 500 MG EC tablet 04-02 00:00: 00 04-03 00:00 :00 No 500mg Q.5D Take 1 tablet (500 mg total) by mouth 2 (two) times daily for 90 days. [facility] clonazePAM (KlonoPIN) 0.5 MG tablet 04-02 00:00: 00 04-03 00:00 :00 No .25mg Take 0.5 tablets (0.25 mg total) by mouth 2 (two) times daily as needed for Anxiety for up to 30 days. Max Daily Amount: 0.5 mg [facility] gabapentin (NEURONTIN) 300 MG capsule 04-02 00:00: 00 04-03 00:00 :00 No 300mg Q.[id number] 3D Take 1 capsule (300 mg total) by mouth 3 (three) times daily for 90 days. [facility] HYDROcodone -acetaminop hen (NORCO 10-325) 10-325 mg per tablet 04-02 00:00: 00 04-03 00:00 :00 No 1{tbl} Take 1 tablet by mouth every 6 (six) hours as needed for up to 10 days. Max Daily Amount: 4 tablets [facility] methocarbam oL (ROBAXIN) 500 MG tablet 04-02 00:00: 00 04-03 00:00 :00 No 500mg Q.25D Take 1 tablet (500 mg total) by mouth 4 (four) times daily for 10 days. [facility] divalproex (DEPAKOTE) 500 MG EC tablet 04-02 00:00: 00 04-03 00:00 :00 No 500mg Q.5D Take 1 tablet (500 mg total) by mouth 2 (two) times daily for 90 days. [facility] clonazePAM (KlonoPIN) 0.5 MG tablet 04-02 00:00: 00 04-03 00:00 :00 No .25mg Take 0.5 tablets (0.25 mg total) by mouth 2 (two) times daily as needed for Anxiety for up to 30 days. Max Daily Amount: 0.5 mg [facility] gabapentin (NEURONTIN) 300 MG capsule 04-02 00:00: 00 04-03 00:00 :00 No 300mg Q.[id number] 3D Take 1 capsule (300 mg total) by mouth 3 (three) times daily for 90 days. [facility] HYDROcodone -acetaminop hen (NORCO 10-325) 10-325 mg per tablet 04-02 00:00: 00 04-03 00:00 :00 No 1{tbl} Take 1 tablet by mouth every 6 (six) hours as needed for up to 10 days. Max Daily Amount: 4 tablets [facility] methocarbam oL (ROBAXIN) 500 MG tablet 04-02 00:00: 00 04-03 00:00 :00 No 500mg Q.25D Take 1 tablet (500 mg total) by mouth 4 (four) times daily for 10 days. [facility] divalproex (DEPAKOTE) 500 MG EC tablet 04-02 00:00: 00 04-03 00:00 :00 No 500mg Q.5D Take 1 tablet (500 mg total) by mouth 2 (two) times daily for 90 days. [facility] clonazePAM (KlonoPIN) 0.5 MG tablet 04-02 00:00: 00 04-03 00:00 :00 No .25mg Take 0.5 tablets (0.25 mg total) by mouth 2 (two) times daily as needed for Anxiety for up to 30 days. Max Daily Amount: 0.5 mg [facility] gabapentin (NEURONTIN) 300 MG capsule 04-02 00:00: 00 04-03 00:00 :00 No 300mg Q.[id number] 3D Take 1 capsule (300 mg total) by mouth 3 (three) times daily for 90 days. [facility] HYDROcodone -acetaminop hen (NORCO 10-325) 10-325 mg per tablet 04-02 00:00: 00 04-03 00:00 :00 No 1{tbl} Take 1 tablet by mouth every 6 (six) hours as needed for up to 10 days. Max Daily Amount: 4 tablets [facility] methocarbam oL (ROBAXIN) 500 MG tablet 04-02 00:00: 00 04-03 00:00 :00 No 500mg Q.25D Take 1 tablet (500 mg total) by mouth 4 (four) times daily for 10 days. [facility] divalproex (DEPAKOTE) 500 MG EC tablet 04-02 00:00: 00 04-03 00:00 :00 No 500mg Q.5D Take 1 tablet (500 mg total) by mouth 2 (two) times daily for 90 days. [facility] clonazePAM (KlonoPIN) 0.5 MG tablet 04-02 00:00: 00 04-03 00:00 :00 No .25mg Take 0.5 tablets (0.25 mg total) by mouth 2 (two) times daily as needed for Anxiety for up to 30 days. Max Daily Amount: 0.5 mg [facility] gabapentin (NEURONTIN) 300 MG capsule 04-02 00:00: 00 04-03 00:00 :00 No 300mg Q.[id number] 3D Take 1 capsule (300 mg total) by mouth 3 (three) times daily for 90 days. [facility] HYDROcodone -acetaminop hen (NORCO 10-325) 10-325 mg per tablet 04-02 00:00: 00 04-03 00:00 :00 No 1{tbl} Take 1 tablet by mouth every 6 (six) hours as needed for up to 10 days. Max Daily Amount: 4 tablets [facility] methocarbam oL (ROBAXIN) 500 MG tablet 04-02 00:00: 00 04-03 00:00 :00 No 500mg Q.25D Take 1 tablet (500 mg total) by mouth 4 (four) times daily for 10 days. [facility] divalproex (DEPAKOTE) 500 MG EC tablet 04-02 00:00: 00 04-03 00:00 :00 No 500mg Q.5D Take 1 tablet (500 mg total) by mouth 2 (two) times daily for 90 days. [facility] clonazePAM (KlonoPIN) 0.5 MG tablet 04-02 00:00: 00 04-03 00:00 :00 No .25mg Take 0.5 tablets (0.25 mg total) by mouth 2 (two) times daily as needed for Anxiety for up to 30 days. Max Daily Amount: 0.5 mg [facility] gabapentin (NEURONTIN) 300 MG capsule 04-02 00:00: 00 04-03 00:00 :00 No 300mg Q.[id number] 3D Take 1 capsule (300 mg total) by mouth 3 (three) times daily for 90 days. [facility] HYDROcodone -acetaminop hen (NORCO 10-325) 10-325 mg per tablet 04-02 00:00: 00 04-03 00:00 :00 No 1{tbl} Take 1 tablet by mouth every 6 (six) hours as needed for up to 10 days. Max Daily Amount: 4 tablets [facility] methocarbam oL (ROBAXIN) 500 MG tablet 04-02 00:00: 00 04-03 00:00 :00 No 500mg Q.25D Take 1 tablet (500 mg total) by mouth 4 (four) times daily for 10 days. [facility] divalproex (DEPAKOTE) 500 MG EC tablet 04-02 00:00: 00 04-03 00:00 :00 No 500mg Q.5D Take 1 tablet (500 mg total) by mouth 2 (two) times daily for 90 days. [facility] clonazePAM (KlonoPIN) 0.5 MG tablet 04-02 00:00: 00 04-03 00:00 :00 No .25mg Take 0.5 tablets (0.25 mg total) by mouth 2 (two) times daily as needed for Anxiety for up to 30 days. Max Daily Amount: 0.5 mg [facility] gabapentin (NEURONTIN) 300 MG capsule 04-02 00:00: 00 04-03 00:00 :00 No 300mg Q.[id number] 3D Take 1 capsule (300 mg total) by mouth 3 (three) times daily for 90 days. [facility] divalproex (DEPAKOTE) 500 MG EC tablet 04-02 00:00: 00 04-03 00:00 :00 No 500mg Q.5D Take 1 tablet (500 mg total) by mouth 2 (two) times daily for 90 days. [facility] clonazePAM (KlonoPIN) 0.5 MG tablet 04-02 00:00: 00 04-03 00:00 :00 No .25mg Take 0.5 tablets (0.25 mg total) by mouth 2 (two) times daily as needed for Anxiety for up to 30 days. Max Daily Amount: 0.5 mg [facility] gabapentin (NEURONTIN) 300 MG capsule 04-02 00:00: 00 04-03 00:00 :00 No 300mg Q.[id number] 3D Take 1 capsule (300 mg total) by mouth 3 (three) times daily for 90 days. [facility] HYDROcodone -acetaminop hen (NORCO 10-325) 10-325 mg per tablet 04-02 00:00: 00 04-03 00:00 :00 No 1{tbl} Take 1 tablet by mouth every 6 (six) hours as needed for up to 10 days. Max Daily Amount: 4 tablets [facility] HYDROcodone -acetaminop hen (NORCO 10-325) 10-325 mg per tablet 04-02 00:00: 00 04-03 00:00 :00 No 1{tbl} Take 1 tablet by mouth every 6 (six) hours as needed for up to 10 days. Max Daily Amount: 4 tablets [facility] methocarbam oL (ROBAXIN) 500 MG tablet 04-02 00:00: 00 04-03 00:00 :00 No 500mg Q.25D Take 1 tablet (500 mg total) by mouth 4 (four) times daily for 10 days. [facility] methocarbam oL (ROBAXIN) 500 MG tablet 04-02 00:00: 00 04-03 00:00 :00 No 500mg Q.25D Take 1 tablet (500 mg total) by mouth 4 (four) times daily for 10 days. [facility] divalproex (DEPAKOTE) 500 MG EC tablet 04-02 00:00: 00 04-03 00:00 :00 No 500mg Q.5D Take 1 tablet (500 mg total) by mouth 2 (two) times daily for 90 days. [facility] clonazePAM (KlonoPIN) 0.5 MG tablet 04-02 00:00: 00 04-03 00:00 :00 No .25mg Take 0.5 tablets (0.25 mg total) by mouth 2 (two) times daily as needed for Anxiety for up to 30 days. Max Daily Amount: 0.5 mg [facility] gabapentin (NEURONTIN) 300 MG capsule 04-02 00:00: 00 04-03 00:00 :00 No 300mg Q.[id number] 3D Take 1 capsule (300 mg total) by mouth 3 (three) times daily for 90 days. [facility] HYDROcodone -acetaminop hen (NORCO 10-325) 10-325 mg per tablet 04-02 00:00: 00 04-03 00:00 :00 No 1{tbl} Take 1 tablet by mouth every 6 (six) hours as needed for up to 10 days. Max Daily Amount: 4 tablets [facility] methocarbam oL (ROBAXIN) 500 MG tablet 04-02 00:00: 00 04-03 00:00 :00 No 500mg Q.25D Take 1 tablet (500 mg total) by mouth 4 (four) times daily for 10 days. [facility] divalproex (DEPAKOTE) 500 MG EC tablet 04-02 00:00: 00 04-03 00:00 :00 No 500mg Q.5D Take 1 tablet (500 mg total) by mouth 2 (two) times daily for 90 days. [facility] clonazePAM (KlonoPIN) 0.5 MG tablet 04-02 00:00: 00 04-03 00:00 :00 No .25mg Take 0.5 tablets (0.25 mg total) by mouth 2 (two) times daily as needed for Anxiety for up to 30 days. Max Daily Amount: 0.5 mg [facility] gabapentin (NEURONTIN) 300 MG capsule 04-02 00:00: 00 04-03 00:00 :00 No 300mg Q.[id number] 3D Take 1 capsule (300 mg total) by mouth 3 (three) times daily for 90 days. [facility] HYDROcodone -acetaminop hen (NORCO 10-325) 10-325 mg per tablet 04-02 00:00: 00 04-03 00:00 :00 No 1{tbl} Take 1 tablet by mouth every 6 (six) hours as needed for up to 10 days. Max Daily Amount: 4 tablets [facility] methocarbam oL (ROBAXIN) 500 MG tablet 04-02 00:00: 00 04-03 00:00 :00 No 500mg Q.25D Take 1 tablet (500 mg total) by mouth 4 (four) times daily for 10 days. [facility] divalproex (DEPAKOTE) 500 MG EC tablet 04-02 00:00: 00 04-03 00:00 :00 No 500mg Q.5D Take 1 tablet (500 mg total) by mouth 2 (two) times daily for 90 days. [facility] clonazePAM (KlonoPIN) 0.5 MG tablet 04-02 00:00: 00 04-03 00:00 :00 No .25mg Take 0.5 tablets (0.25 mg total) by mouth 2 (two) times daily as needed for Anxiety for up to 30 days. Max Daily Amount: 0.5 mg [facility] gabapentin (NEURONTIN) 300 MG capsule 04-02 00:00: 00 04-03 00:00 :00 No 300mg Q.[id number] 3D Take 1 capsule (300 mg total) by mouth 3 (three) times daily for 90 days. [facility] HYDROcodone -acetaminop hen (NORCO 10-325) 10-325 mg per tablet 04-02 00:00: 00 04-03 00:00 :00 No 1{tbl} Take 1 tablet by mouth every 6 (six) hours as needed for up to 10 days. Max Daily Amount: 4 tablets [facility] methocarbam oL (ROBAXIN) 500 MG tablet 04-02 00:00: 00 04-03 00:00 :00 No 500mg Q.25D Take 1 tablet (500 mg total) by mouth 4 (four) times daily for 10 days. [facility] divalproex (DEPAKOTE) 500 MG EC tablet 04-02 00:00: 00 04-03 00:00 :00 No 500mg Q.5D Take 1 tablet (500 mg total) by mouth 2 (two) times daily for 90 days. [facility] clonazePAM (KlonoPIN) 0.5 MG tablet 04-02 00:00: 00 04-03 00:00 :00 No .25mg Take 0.5 tablets (0.25 mg total) by mouth 2 (two) times daily as needed for Anxiety for up to 30 days. Max Daily Amount: 0.5 mg [facility] gabapentin (NEURONTIN) 300 MG capsule 04-02 00:00: 00 04-03 00:00 :00 No 300mg Q.[id number] 3D Take 1 capsule (300 mg total) by mouth 3 (three) times daily for 90 days. [facility] HYDROcodone -acetaminop hen (NORCO 10-325) 10-325 mg per tablet 04-02 00:00: 00 04-03 00:00 :00 No 1{tbl} Take 1 tablet by mouth every 6 (six) hours as needed for up to 10 days. Max Daily Amount: 4 tablets [facility] methocarbam oL (ROBAXIN) 500 MG tablet 04-02 00:00: 00 04-03 00:00 :00 No 500mg Q.25D Take 1 tablet (500 mg total) by mouth 4 (four) times daily for 10 days. [facility] divalproex (DEPAKOTE) 500 MG EC tablet 04-02 00:00: 00 04-03 00:00 :00 No 500mg Q.5D Take 1 tablet (500 mg total) by mouth 2 (two) times daily for 90 days. [facility] clonazePAM (KlonoPIN) 0.5 MG tablet 04-02 00:00: 00 04-03 00:00 :00 No .25mg Take 0.5 tablets (0.25 mg total) by mouth 2 (two) times daily as needed for Anxiety for up to 30 days. Max Daily Amount: 0.5 mg [facility] gabapentin (NEURONTIN) 300 MG capsule 04-02 00:00: 00 04-03 00:00 :00 No 300mg Q.[id number] 3D Take 1 capsule (300 mg total) by mouth 3 (three) times daily for 90 days. [facility] HYDROcodone -acetaminop hen (NORCO 10-325) 10-325 mg per tablet 04-02 00:00: 00 04-03 00:00 :00 No 1{tbl} Take 1 tablet by mouth every 6 (six) hours as needed for up to 10 days. Max Daily Amount: 4 tablets [facility] methocarbam oL (ROBAXIN) 500 MG tablet 04-02 00:00: 00 04-03 00:00 :00 No 500mg Q.25D Take 1 tablet (500 mg total) by mouth 4 (four) times daily for 10 days. [facility] divalproex (DEPAKOTE) 500 MG EC tablet 04-02 00:00: 00 04-03 00:00 :00 No 500mg Q.5D Take 1 tablet (500 mg total) by mouth 2 (two) times daily for 90 days. [facility] clonazePAM (KlonoPIN) 0.5 MG tablet 04-02 00:00: 00 04-03 00:00 :00 No .25mg Take 0.5 tablets (0.25 mg total) by mouth 2 (two) times daily as needed for Anxiety for up to 30 days. Max Daily Amount: 0.5 mg [facility] divalproex (DEPAKOTE) 500 MG EC tablet 04-02 00:00: 00 04-03 00:00 :00 No 500mg Q.5D Take 1 tablet (500 mg total) by mouth 2 (two) times daily for 90 days. [facility] clonazePAM (KlonoPIN) 0.5 MG tablet 04-02 00:00: 00 04-03 00:00 :00 No .25mg Take 0.5 tablets (0.25 mg total) by mouth 2 (two) times daily as needed for Anxiety for up to 30 days. Max Daily Amount: 0.5 mg [facility] gabapentin (NEURONTIN) 300 MG capsule 04-02 00:00: 00 04-03 00:00 :00 No 300mg Q.[id number] 3D Take 1 capsule (300 mg total) by mouth 3 (three) times daily for 90 days. [facility] HYDROcodone -acetaminop hen (NORCO 10-325) 10-325 mg per tablet 04-02 00:00: 00 04-03 00:00 :00 No 1{tbl} Take 1 tablet by mouth every 6 (six) hours as needed for up to 10 days. Max Daily Amount: 4 tablets [facility] methocarbam oL (ROBAXIN) 500 MG tablet 04-02 00:00: 00 04-03 00:00 :00 No 500mg Q.25D Take 1 tablet (500 mg total) by mouth 4 (four) times daily for 10 days. [facility] gabapentin (NEURONTIN) 300 MG capsule 04-02 00:00: 00 04-03 00:00 :00 No 300mg Q.[id number] 3D Take 1 capsule (300 mg total) by mouth 3 (three) times daily for 90 days. [facility] HYDROcodone -acetaminop hen (NORCO 10-325) 10-325 mg per tablet 04-02 00:00: 00 04-03 00:00 :00 No 1{tbl} Take 1 tablet by mouth every 6 (six) hours as needed for up to 10 days. Max Daily Amount: 4 tablets [facility] methocarbam oL (ROBAXIN) 500 MG tablet 04-02 00:00: 00 04-03 00:00 :00 No 500mg Q.25D Take 1 tablet (500 mg total) by mouth 4 (four) times daily for 10 days. [facility] divalproex (DEPAKOTE) 500 MG EC tablet 04-02 00:00: 00 04-03 00:00 :00 No 500mg Q.5D Take 1 tablet (500 mg total) by mouth 2 (two) times daily for 90 days. [facility] clonazePAM (KlonoPIN) 0.5 MG tablet 04-02 00:00: 00 04-03 00:00 :00 No .25mg Take 0.5 tablets (0.25 mg total) by mouth 2 (two) times daily as needed for Anxiety for up to 30 days. Max Daily Amount: 0.5 mg [facility] gabapentin (NEURONTIN) 300 MG capsule 04-02 00:00: 00 04-03 00:00 :00 No 300mg Q.[id number] 3D Take 1 capsule (300 mg total) by mouth 3 (three) times daily for 90 days. [facility] HYDROcodone -acetaminop hen (NORCO 10-325) 10-325 mg per tablet 04-02 00:00: 00 04-03 00:00 :00 No 1{tbl} Take 1 tablet by mouth every 6 (six) hours as needed for up to 10 days. Max Daily Amount: 4 tablets [facility] methocarbam oL (ROBAXIN) 500 MG tablet 04-02 00:00: 00 04-03 00:00 :00 No 500mg Q.25D Take 1 tablet (500 mg total) by mouth 4 (four) times daily for 10 days. [facility] divalproex (DEPAKOTE) 500 MG EC tablet 04-02 00:00: 00 04-03 00:00 :00 No 500mg Q.5D Take 1 tablet (500 mg total) by mouth 2 (two) times daily for 90 days. [facility] clonazePAM (KlonoPIN) 0.5 MG tablet 04-02 00:00: 00 04-03 00:00 :00 No .25mg Take 0.5 tablets (0.25 mg total) by mouth 2 (two) times daily as needed for Anxiety for up to 30 days. Max Daily Amount: 0.5 mg [facility] gabapentin (NEURONTIN) 300 MG capsule 04-02 00:00: 00 04-03 00:00 :00 No 300mg Q.[id number] 3D Take 1 capsule (300 mg total) by mouth 3 (three) times daily for 90 days. [facility] HYDROcodone -acetaminop hen (NORCO 10-325) 10-325 mg per tablet 04-02 00:00: 00 04-03 00:00 :00 No 1{tbl} Take 1 tablet by mouth every 6 (six) hours as needed for up to 10 days. Max Daily Amount: 4 tablets [facility] methocarbam oL (ROBAXIN) 500 MG tablet 04-02 00:00: 00 04-03 00:00 :00 No 500mg Q.25D Take 1 tablet (500 mg total) by mouth 4 (four) times daily for 10 days. [facility] divalproex (DEPAKOTE) 500 MG EC tablet 04-02 00:00: 00 04-03 00:00 :00 No 500mg Q.5D Take 1 tablet (500 mg total) by mouth 2 (two) times daily for 90 days. [facility] clonazePAM (KlonoPIN) 0.5 MG tablet 04-02 00:00: 00 04-03 00:00 :00 No .25mg Take 0.5 tablets (0.25 mg total) by mouth 2 (two) times daily as needed for Anxiety for up to 30 days. Max Daily Amount: 0.5 mg [facility] gabapentin (NEURONTIN) 300 MG capsule 04-02 00:00: 00 04-03 00:00 :00 No 300mg Q.[id number] 3D Take 1 capsule (300 mg total) by mouth 3 (three) times daily for 90 days. [facility] HYDROcodone -acetaminop hen (NORCO 10-325) 10-325 mg per tablet 04-02 00:00: 00 04-03 00:00 :00 No 1{tbl} Take 1 tablet by mouth every 6 (six) hours as needed for up to 10 days. Max Daily Amount: 4 tablets [facility] methocarbam oL (ROBAXIN) 500 MG tablet 04-02 00:00: 00 04-03 00:00 :00 No 500mg Q.25D Take 1 tablet (500 mg total) by mouth 4 (four) times daily for 10 days. [facility] divalproex (DEPAKOTE) 500 MG EC tablet 04-02 00:00: 00 04-03 00:00 :00 No 500mg Q.5D Take 1 tablet (500 mg total) by mouth 2 (two) times daily for 90 days. [facility] clonazePAM (KlonoPIN) 0.5 MG tablet 04-02 00:00: 00 04-03 00:00 :00 No .25mg Take 0.5 tablets (0.25 mg total) by mouth 2 (two) times daily as needed for Anxiety for up to 30 days. Max Daily Amount: 0.5 mg [facility] gabapentin (NEURONTIN) 300 MG capsule 04-02 00:00: 00 04-03 00:00 :00 No 300mg Q.[id number] 3D Take 1 capsule (300 mg total) by mouth 3 (three) times daily for 90 days. [facility] HYDROcodone -acetaminop hen (NORCO 10-325) 10-325 mg per tablet 04-02 00:00: 00 04-03 00:00 :00 No 1{tbl} Take 1 tablet by mouth every 6 (six) hours as needed for up to 10 days. Max Daily Amount: 4 tablets [facility] methocarbam oL (ROBAXIN) 500 MG tablet 04-02 00:00: 00 04-03 00:00 :00 No 500mg Q.25D Take 1 tablet (500 mg total) by mouth 4 (four) times daily for 10 days. [facility] divalproex (DEPAKOTE) 500 MG EC tablet 04-02 00:00: 00 04-03 00:00 :00 No 500mg Q.5D Take 1 tablet (500 mg total) by mouth 2 (two) times daily for 90 days. [facility] clonazePAM (KlonoPIN) 0.5 MG tablet 04-02 00:00: 00 04-03 00:00 :00 No .25mg Take 0.5 tablets (0.25 mg total) by mouth 2 (two) times daily as needed for Anxiety for up to 30 days. Max Daily Amount: 0.5 mg [facility] gabapentin (NEURONTIN) 300 MG capsule 04-02 00:00: 00 04-03 00:00 :00 No 300mg Q.[id number] 3D Take 1 capsule (300 mg total) by mouth 3 (three) times daily for 90 days. [facility] HYDROcodone -acetaminop hen (NORCO 10-325) 10-325 mg per tablet 04-02 00:00: 00 04-03 00:00 :00 No 1{tbl} Take 1 tablet by mouth every 6 (six) hours as needed for up to 10 days. Max Daily Amount: 4 tablets [facility] methocarbam oL (ROBAXIN) 500 MG tablet 04-02 00:00: 00 04-03 00:00 :00 No 500mg Q.25D Take 1 tablet (500 mg total) by mouth 4 (four) times daily for 10 days. [facility] divalproex (DEPAKOTE) 500 MG EC tablet 04-02 00:00: 00 04-03 00:00 :00 No 500mg Q.5D Take 1 tablet (500 mg total) by mouth 2 (two) times daily for 90 days. [facility] divalproex (DEPAKOTE) 500 MG EC tablet 04-02 00:00: 00 04-03 00:00 :00 No 500mg Q.5D Take 1 tablet (500 mg total) by mouth 2 (two) times daily for 90 days. [facility] clonazePAM (KlonoPIN) 0.5 MG tablet 04-02 00:00: 00 04-03 00:00 :00 No .25mg Take 0.5 tablets (0.25 mg total) by mouth 2 (two) times daily as needed for Anxiety for up to 30 days. Max Daily Amount: 0.5 mg [facility] clonazePAM (KlonoPIN) 0.5 MG tablet 04-02 00:00: 00 04-03 00:00 :00 No .25mg Take 0.5 tablets (0.25 mg total) by mouth 2 (two) times daily as needed for Anxiety for up to 30 days. Max Daily Amount: 0.5 mg [facility] gabapentin (NEURONTIN) 300 MG capsule 04-02 00:00: 00 04-03 00:00 :00 No 300mg Q.[id number] 3D Take 1 capsule (300 mg total) by mouth 3 (three) times daily for 90 days. [facility] HYDROcodone -acetaminop hen (NORCO 10-325) 10-325 mg per tablet 04-02 00:00: 00 04-03 00:00 :00 No 1{tbl} Take 1 tablet by mouth every 6 (six) hours as needed for up to 10 days. Max Daily Amount: 4 tablets [facility] methocarbam oL (ROBAXIN) 500 MG tablet 04-02 00:00: 00 04-03 00:00 :00 No 500mg Q.25D Take 1 tablet (500 mg total) by mouth 4 (four) times daily for 10 days. [facility] gabapentin (NEURONTIN) 300 MG capsule 04-02 00:00: 00 04-03 00:00 :00 No 300mg Q.[id number] 3D Take 1 capsule (300 mg total) by mouth 3 (three) times daily for 90 days. [facility] HYDROcodone -acetaminop hen (NORCO 10-325) 10-325 mg per tablet 04-02 00:00: 00 04-03 00:00 :00 No 1{tbl} Take 1 tablet by mouth every 6 (six) hours as needed for up to 10 days. Max Daily Amount: 4 tablets [facility] methocarbam oL (ROBAXIN) 500 MG tablet 04-02 00:00: 00 04-03 00:00 :00 No 500mg Q.25D Take 1 tablet (500 mg total) by mouth 4 (four) times daily for 10 days. [facility] divalproex (DEPAKOTE) 500 MG EC tablet 04-02 00:00: 00 04-03 00:00 :00 No 500mg Q.5D Take 1 tablet (500 mg total) by mouth 2 (two) times daily for 90 days. [facility] clonazePAM (KlonoPIN) 0.5 MG tablet 04-02 00:00: 00 04-03 00:00 :00 No .25mg Take 0.5 tablets (0.25 mg total) by mouth 2 (two) times daily as needed for Anxiety for up to 30 days. Max Daily Amount: 0.5 mg [facility] gabapentin (NEURONTIN) 300 MG capsule 04-02 00:00: 00 04-03 00:00 :00 No 300mg Q.[id number] 3D Take 1 capsule (300 mg total) by mouth 3 (three) times daily for 90 days. [facility] HYDROcodone -acetaminop hen (NORCO 10-325) 10-325 mg per tablet 04-02 00:00: 00 04-03 00:00 :00 No 1{tbl} Take 1 tablet by mouth every 6 (six) hours as needed for up to 10 days. Max Daily Amount: 4 tablets [facility] methocarbam oL (ROBAXIN) 500 MG tablet 04-02 00:00: 00 04-03 00:00 :00 No 500mg Q.25D Take 1 tablet (500 mg total) by mouth 4 (four) times daily for 10 days. [facility] divalproex (DEPAKOTE) 500 MG EC tablet 04-02 00:00: 00 04-03 00:00 :00 No 500mg Q.5D Take 1 tablet (500 mg total) by mouth 2 (two) times daily for 90 days. [facility] clonazePAM (KlonoPIN) 0.5 MG tablet 04-02 00:00: 00 04-03 00:00 :00 No .25mg Take 0.5 tablets (0.25 mg total) by mouth 2 (two) times daily as needed for Anxiety for up to 30 days. Max Daily Amount: 0.5 mg [facility] gabapentin (NEURONTIN) 300 MG capsule 04-02 00:00: 00 04-03 00:00 :00 No 300mg Q.[id number] 3D Take 1 capsule (300 mg total) by mouth 3 (three) times daily for 90 days. [facility] HYDROcodone -acetaminop hen (NORCO 10-325) 10-325 mg per tablet 04-02 00:00: 00 04-03 00:00 :00 No 1{tbl} Take 1 tablet by mouth every 6 (six) hours as needed for up to 10 days. Max Daily Amount: 4 tablets [facility] methocarbam oL (ROBAXIN) 500 MG tablet 04-02 00:00: 00 04-03 00:00 :00 No 500mg Q.25D Take 1 tablet (500 mg total) by mouth 4 (four) times daily for 10 days. [facility] divalproex (DEPAKOTE) 500 MG EC tablet 04-02 00:00: 00 04-03 00:00 :00 No 500mg Q.5D Take 1 tablet (500 mg total) by mouth 2 (two) times daily for 90 days. [facility] clonazePAM (KlonoPIN) 0.5 MG tablet 04-02 00:00: 00 04-03 00:00 :00 No .25mg Take 0.5 tablets (0.25 mg total) by mouth 2 (two) times daily as needed for Anxiety for up to 30 days. Max Daily Amount: 0.5 mg [facility] gabapentin (NEURONTIN) 300 MG capsule 04-02 00:00: 00 04-03 00:00 :00 No 300mg Q.[id number] 3D Take 1 capsule (300 mg total) by mouth 3 (three) times daily for 90 days. [facility] HYDROcodone -acetaminop hen (NORCO 10-325) 10-325 mg per tablet 04-02 00:00: 00 04-03 00:00 :00 No 1{tbl} Take 1 tablet by mouth every 6 (six) hours as needed for up to 10 days. Max Daily Amount: 4 tablets [facility] methocarbam oL (ROBAXIN) 500 MG tablet 04-02 00:00: 00 04-03 00:00 :00 No 500mg Q.25D Take 1 tablet (500 mg total) by mouth 4 (four) times daily for 10 days. [facility] divalproex (DEPAKOTE) 500 MG EC tablet 04-02 00:00: 00 04-03 00:00 :00 No 500mg Q.5D Take 1 tablet (500 mg total) by mouth 2 (two) times daily for 90 days. [facility] clonazePAM (KlonoPIN) 0.5 MG tablet 04-02 00:00: 00 04-03 00:00 :00 No .25mg Take 0.5 tablets (0.25 mg total) by mouth 2 (two) times daily as needed for Anxiety for up to 30 days. Max Daily Amount: 0.5 mg [facility] divalproex (DEPAKOTE) 500 MG EC tablet 04-02 00:00: 00 04-03 00:00 :00 No 500mg Q.5D Take 1 tablet (500 mg total) by mouth 2 (two) times daily for 90 days. [facility] clonazePAM (KlonoPIN) 0.5 MG tablet 04-02 00:00: 00 04-03 00:00 :00 No .25mg Take 0.5 tablets (0.25 mg total) by mouth 2 (two) times daily as needed for Anxiety for up to 30 days. Max Daily Amount: 0.5 mg [facility] gabapentin (NEURONTIN) 300 MG capsule 04-02 00:00: 00 04-03 00:00 :00 No 300mg Q.[id number] 3D Take 1 capsule (300 mg total) by mouth 3 (three) times daily for 90 days. [facility] HYDROcodone -acetaminop hen (NORCO 10-325) 10-325 mg per tablet 04-02 00:00: 00 04-03 00:00 :00 No 1{tbl} Take 1 tablet by mouth every 6 (six) hours as needed for up to 10 days. Max Daily Amount: 4 tablets [facility] methocarbam oL (ROBAXIN) 500 MG tablet 04-02 00:00: 00 04-03 00:00 :00 No 500mg Q.25D Take 1 tablet (500 mg total) by mouth 4 (four) times daily for 10 days. [facility] gabapentin (NEURONTIN) 300 MG capsule 04-02 00:00: 00 04-03 00:00 :00 No 300mg Q.[id number] 3D Take 1 capsule (300 mg total) by mouth 3 (three) times daily for 90 days. [facility] HYDROcodone -acetaminop hen (NORCO 10-325) 10-325 mg per tablet 04-02 00:00: 00 04-03 00:00 :00 No 1{tbl} Take 1 tablet by mouth every 6 (six) hours as needed for up to 10 days. Max Daily Amount: 4 tablets [facility] methocarbam oL (ROBAXIN) 500 MG tablet 04-02 00:00: 00 04-03 00:00 :00 No 500mg Q.25D Take 1 tablet (500 mg total) by mouth 4 (four) times daily for 10 days. [facility] divalproex (DEPAKOTE) 500 MG EC tablet 04-02 00:00: 00 04-03 00:00 :00 No 500mg Q.5D Take 1 tablet (500 mg total) by mouth 2 (two) times daily for 90 days. [facility] clonazePAM (KlonoPIN) 0.5 MG tablet 04-02 00:00: 00 04-03 00:00 :00 No .25mg Take 0.5 tablets (0.25 mg total) by mouth 2 (two) times daily as needed for Anxiety for up to 30 days. Max Daily Amount: 0.5 mg [facility] gabapentin (NEURONTIN) 300 MG capsule 04-02 00:00: 00 04-03 00:00 :00 No 300mg Q.[id number] 3D Take 1 capsule (300 mg total) by mouth 3 (three) times daily for 90 days. [facility] HYDROcodone -acetaminop hen (NORCO 10-325) 10-325 mg per tablet 04-02 00:00: 00 04-03 00:00 :00 No 1{tbl} Take 1 tablet by mouth every 6 (six) hours as needed for up to 10 days. Max Daily Amount: 4 tablets [facility] methocarbam oL (ROBAXIN) 500 MG tablet 04-02 00:00: 00 04-03 00:00 :00 No 500mg Q.25D Take 1 tablet (500 mg total) by mouth 4 (four) times daily for 10 days. [facility] divalproex (DEPAKOTE) 500 MG EC tablet 04-02 00:00: 00 04-03 00:00 :00 No 500mg Q.5D Take 1 tablet (500 mg total) by mouth 2 (two) times daily for 90 days. [facility] clonazePAM (KlonoPIN) 0.5 MG tablet 04-02 00:00: 00 04-03 00:00 :00 No .25mg Take 0.5 tablets (0.25 mg total) by mouth 2 (two) times daily as needed for Anxiety for up to 30 days. Max Daily Amount: 0.5 mg [facility] gabapentin (NEURONTIN) 300 MG capsule 04-02 00:00: 00 04-03 00:00 :00 No 300mg Q.[id number] 3D Take 1 capsule (300 mg total) by mouth 3 (three) times daily for 90 days. [facility] HYDROcodone -acetaminop hen (NORCO 10-325) 10-325 mg per tablet 04-02 00:00: 00 04-03 00:00 :00 No 1{tbl} Take 1 tablet by mouth every 6 (six) hours as needed for up to 10 days. Max Daily Amount: 4 tablets [facility] methocarbam oL (ROBAXIN) 500 MG tablet 04-02 00:00: 00 04-03 00:00 :00 No 500mg Q.25D Take 1 tablet (500 mg total) by mouth 4 (four) times daily for 10 days. [facility] divalproex (DEPAKOTE) 500 MG EC tablet 04-02 00:00: 00 04-03 00:00 :00 No 500mg Q.5D Take 1 tablet (500 mg total) by mouth 2 (two) times daily for 90 days. [facility] clonazePAM (KlonoPIN) 0.5 MG tablet 04-02 00:00: 00 04-03 00:00 :00 No .25mg Take 0.5 tablets (0.25 mg total) by mouth 2 (two) times daily as needed for Anxiety for up to 30 days. Max Daily Amount: 0.5 mg [facility] gabapentin (NEURONTIN) 300 MG capsule 04-02 00:00: 00 04-03 00:00 :00 No 300mg Q.[id number] 3D Take 1 capsule (300 mg total) by mouth 3 (three) times daily for 90 days. [facility] HYDROcodone -acetaminop hen (NORCO 10-325) 10-325 mg per tablet 04-02 00:00: 00 04-03 00:00 :00 No 1{tbl} Take 1 tablet by mouth every 6 (six) hours as needed for up to 10 days. Max Daily Amount: 4 tablets [facility] methocarbam oL (ROBAXIN) 500 MG tablet 04-02 00:00: 00 04-03 00:00 :00 No 500mg Q.25D Take 1 tablet (500 mg total) by mouth 4 (four) times daily for 10 days. [facility] divalproex (DEPAKOTE) 500 MG EC tablet 04-02 00:00: 00 04-03 00:00 :00 No 500mg Q.5D Take 1 tablet (500 mg total) by mouth 2 (two) times daily for 90 days. [facility] clonazePAM (KlonoPIN) 0.5 MG tablet 04-02 00:00: 00 04-03 00:00 :00 No .25mg Take 0.5 tablets (0.25 mg total) by mouth 2 (two) times daily as needed for Anxiety for up to 30 days. Max Daily Amount: 0.5 mg [facility] gabapentin (NEURONTIN) 300 MG capsule 04-02 00:00: 00 04-03 00:00 :00 No 300mg Q.[id number] 3D Take 1 capsule (300 mg total) by mouth 3 (three) times daily for 90 days. [facility] HYDROcodone -acetaminop hen (NORCO 10-325) 10-325 mg per tablet 04-02 00:00: 00 04-03 00:00 :00 No 1{tbl} Take 1 tablet by mouth every 6 (six) hours as needed for up to 10 days. Max Daily Amount: 4 tablets [facility] methocarbam oL (ROBAXIN) 500 MG tablet 04-02 00:00: 00 04-03 00:00 :00 No 500mg Q.25D Take 1 tablet (500 mg total) by mouth 4 (four) times daily for 10 days. [facility] divalproex (DEPAKOTE) 500 MG EC tablet 04-02 00:00: 00 04-03 00:00 :00 No 500mg Q.5D Take 1 tablet (500 mg total) by mouth 2 (two) times daily for 90 days. [facility] clonazePAM (KlonoPIN) 0.5 MG tablet 04-02 00:00: 00 04-03 00:00 :00 No .25mg Take 0.5 tablets (0.25 mg total) by mouth 2 (two) times daily as needed for Anxiety for up to 30 days. Max Daily Amount: 0.5 mg [facility] gabapentin (NEURONTIN) 300 MG capsule 04-02 00:00: 00 04-03 00:00 :00 No 300mg Q.[id number] 3D Take 1 capsule (300 mg total) by mouth 3 (three) times daily for 90 days. [facility] HYDROcodone -acetaminop hen (NORCO 10-325) 10-325 mg per tablet 04-02 00:00: 00 04-03 00:00 :00 No 1{tbl} Take 1 tablet by mouth every 6 (six) hours as needed for up to 10 days. Max Daily Amount: 4 tablets [facility] methocarbam oL (ROBAXIN) 500 MG tablet 04-02 00:00: 00 04-03 00:00 :00 No 500mg Q.25D Take 1 tablet (500 mg total) by mouth 4 (four) times daily for 10 days. [facility] divalproex (DEPAKOTE) 500 MG EC tablet 04-02 00:00: 00 04-03 00:00 :00 No 500mg Q.5D Take 1 tablet (500 mg total) by mouth 2 (two) times daily for 90 days. [facility] clonazePAM (KlonoPIN) 0.5 MG tablet 04-02 00:00: 00 04-03 00:00 :00 No .25mg Take 0.5 tablets (0.25 mg total) by mouth 2 (two) times daily as needed for Anxiety for up to 30 days. Max Daily Amount: 0.5 mg [facility] gabapentin (NEURONTIN) 300 MG capsule 04-02 00:00: 00 04-03 00:00 :00 No 300mg Q.[id number] 3D Take 1 capsule (300 mg total) by mouth 3 (three) times daily for 90 days. [facility] HYDROcodone -acetaminop hen (NORCO 10-325) 10-325 mg per tablet 04-02 00:00: 00 04-03 00:00 :00 No 1{tbl} Take 1 tablet by mouth every 6 (six) hours as needed for up to 10 days. Max Daily Amount: 4 tablets [facility] methocarbam oL (ROBAXIN) 500 MG tablet 04-02 00:00: 00 04-03 00:00 :00 No 500mg Q.25D Take 1 tablet (500 mg total) by mouth 4 (four) times daily for 10 days. [facility] divalproex (DEPAKOTE) 500 MG EC tablet 04-02 00:00: 00 04-03 00:00 :00 No 500mg Q.5D Take 1 tablet (500 mg total) by mouth 2 (two) times daily for 90 days. [facility] clonazePAM (KlonoPIN) 0.5 MG tablet 04-02 00:00: 00 04-03 00:00 :00 No .25mg Take 0.5 tablets (0.25 mg total) by mouth 2 (two) times daily as needed for Anxiety for up to 30 days. Max Daily Amount: 0.5 mg [facility] gabapentin (NEURONTIN) 300 MG capsule 04-02 00:00: 00 04-03 00:00 :00 No 300mg Q.[id number] 3D Take 1 capsule (300 mg total) by mouth 3 (three) times daily for 90 days. [facility] HYDROcodone -acetaminop hen (NORCO 10-325) 10-325 mg per tablet 04-02 00:00: 00 04-03 00:00 :00 No 1{tbl} Take 1 tablet by mouth every 6 (six) hours as needed for up to 10 days. Max Daily Amount: 4 tablets [facility] methocarbam oL (ROBAXIN) 500 MG tablet 04-02 00:00: 00 04-03 00:00 :00 No 500mg Q.25D Take 1 tablet (500 mg total) by mouth 4 (four) times daily for 10 days. [facility] divalproex (DEPAKOTE) 500 MG EC tablet 04-02 00:00: 00 04-03 00:00 :00 No 500mg Q.5D Take 1 tablet (500 mg total) by mouth 2 (two) times daily for 90 days. [facility] clonazePAM (KlonoPIN) 0.5 MG tablet 04-02 00:00: 00 04-03 00:00 :00 No .25mg Take 0.5 tablets (0.25 mg total) by mouth 2 (two) times daily as needed for Anxiety for up to 30 days. Max Daily Amount: 0.5 mg [facility] gabapentin (NEURONTIN) 300 MG capsule 04-02 00:00: 00 04-03 00:00 :00 No 300mg Q.[id number] 3D Take 1 capsule (300 mg total) by mouth 3 (three) times daily for 90 days. [facility] HYDROcodone -acetaminop hen (NORCO 10-325) 10-325 mg per tablet 04-02 00:00: 00 04-03 00:00 :00 No 1{tbl} Take 1 tablet by mouth every 6 (six) hours as needed for up to 10 days. Max Daily Amount: 4 tablets [facility] methocarbam oL (ROBAXIN) 500 MG tablet 04-02 00:00: 00 04-03 00:00 :00 No 500mg Q.25D Take 1 tablet (500 mg total) by mouth 4 (four) times daily for 10 days. [facility] divalproex (DEPAKOTE) 500 MG EC tablet 04-02 00:00: 00 04-03 00:00 :00 No 500mg Q.5D Take 1 tablet (500 mg total) by mouth 2 (two) times daily for 90 days. [facility] clonazePAM (KlonoPIN) 0.5 MG tablet 04-02 00:00: 00 04-03 00:00 :00 No .25mg Take 0.5 tablets (0.25 mg total) by mouth 2 (two) times daily as needed for Anxiety for up to 30 days. Max Daily Amount: 0.5 mg [facility] gabapentin (NEURONTIN) 300 MG capsule 04-02 00:00: 00 04-03 00:00 :00 No 300mg Q.[id number] 3D Take 1 capsule (300 mg total) by mouth 3 (three) times daily for 90 days. [facility] HYDROcodone -acetaminop hen (NORCO 10-325) 10-325 mg per tablet 04-02 00:00: 00 04-03 00:00 :00 No 1{tbl} Take 1 tablet by mouth every 6 (six) hours as needed for up to 10 days. Max Daily Amount: 4 tablets [facility] methocarbam oL (ROBAXIN) 500 MG tablet 04-02 00:00: 00 04-03 00:00 :00 No 500mg Q.25D Take 1 tablet (500 mg total) by mouth 4 (four) times daily for 10 days. [facility] divalproex (DEPAKOTE) 500 MG EC tablet 04-02 00:00: 00 04-03 00:00 :00 No 500mg Q.5D Take 1 tablet (500 mg total) by mouth 2 (two) times daily for 90 days. [facility] clonazePAM (KlonoPIN) 0.5 MG tablet 04-02 00:00: 00 04-03 00:00 :00 No .25mg Take 0.5 tablets (0.25 mg total) by mouth 2 (two) times daily as needed for Anxiety for up to 30 days. Max Daily Amount: 0.5 mg [facility] gabapentin (NEURONTIN) 300 MG capsule 04-02 00:00: 00 04-03 00:00 :00 No 300mg Q.[id number] 3D Take 1 capsule (300 mg total) by mouth 3 (three) times daily for 90 days. [facility] HYDROcodone -acetaminop hen (NORCO 10-325) 10-325 mg per tablet 04-02 00:00: 00 04-03 00:00 :00 No 1{tbl} Take 1 tablet by mouth every 6 (six) hours as needed for up to 10 days. Max Daily Amount: 4 tablets [facility] methocarbam oL (ROBAXIN) 500 MG tablet 04-02 00:00: 00 04-03 00:00 :00 No 500mg Q.25D Take 1 tablet (500 mg total) by mouth 4 (four) times daily for 10 days. [facility] divalproex (DEPAKOTE) 500 MG EC tablet 04-02 00:00: 00 04-03 00:00 :00 No 500mg Q.5D Take 1 tablet (500 mg total) by mouth 2 (two) times daily for 90 days. [facility] clonazePAM (KlonoPIN) 0.5 MG tablet 04-02 00:00: 00 04-03 00:00 :00 No .25mg Take 0.5 tablets (0.25 mg total) by mouth 2 (two) times daily as needed for Anxiety for up to 30 days. Max Daily Amount: 0.5 mg [facility] gabapentin (NEURONTIN) 300 MG capsule 04-02 00:00: 00 04-03 00:00 :00 No 300mg Q.[id number] 3D Take 1 capsule (300 mg total) by mouth 3 (three) times daily for 90 days. [facility] HYDROcodone -acetaminop hen (NORCO 10-325) 10-325 mg per tablet 04-02 00:00: 00 04-03 00:00 :00 No 1{tbl} Take 1 tablet by mouth every 6 (six) hours as needed for up to 10 days. Max Daily Amount: 4 tablets [facility] methocarbam oL (ROBAXIN) 500 MG tablet 04-02 00:00: 00 04-03 00:00 :00 No 500mg Q.25D Take 1 tablet (500 mg total) by mouth 4 (four) times daily for 10 days. [facility] divalproex (DEPAKOTE) 500 MG EC tablet 04-02 00:00: 00 04-03 00:00 :00 No 500mg Q.5D Take 1 tablet (500 mg total) by mouth 2 (two) times daily for 90 days. [facility] clonazePAM (KlonoPIN) 0.5 MG tablet 04-02 00:00: 00 04-03 00:00 :00 No .25mg Take 0.5 tablets (0.25 mg total) by mouth 2 (two) times daily as needed for Anxiety for up to 30 days. Max Daily Amount: 0.5 mg [facility] Metronidazo le 500 MG oral Tablet 01-17 00:00: 00 Yes Cynthia gonzalez Clonazepam 1 MG oral Tablet 6-30 00:00: 00 Yes 1mg 1 tablet (1 mg total). Cynthia Erazoa lisa Lisinopril 5 MG oral Tablet 6- 00:00: 00 Yes Cynthia gonzalez Metoprolol Tartrate [...] member approving Restricted medication : Alfonso ALVARADO [facility] ketorolac (TORADOL) injection 15 mg 12-11 18:15: 00 12-11 17:25 :00 No 15mg 15 mg, Slow IV Push, ONCE, 1 dose, [facility] 12[facility]11[facility]22 [facility] 1315[facility] 370-500 mL) injection 80 mL 12-11 16:30: 00 12-11 16:27 :00 No [id number] 80mL 80 mL, Intravenou s, ONCE, 1 dose, On Arpita 12/11/22 at 1130, Routine [facility] nitroglycer in (NITROL) 2 % ointment 0.5 Inch 12-11 15:30: 00 12-11 14:31 :00 No .5[in_u s] 0.5 Inch, Transderma l (Apply To Skin), ONCE, 1 dose, On Arpita 12/11/22 at 1030, [facility] aspirin chewable tablet 324 mg 12-11 15:30: 00 12-11 14:30 :00 No 324mg 324 mg, Oral, ONCE, 1 dose, On Arpita 12/11/22 at 1030, Routine [facility] ondansetron (ZOFRAN (PF)) injection 4 mg 12-11 15:30: 00 12-11 14:29 :00 No 4mg 4 mg, Slow IV Push, ONCE, 1 dose, On Thu12/11/22 at 1030, [facility] LORazepam (ATIVAN) injection 1 mg 12-11 15:00: 00 12-11 14:57 :00 No 1mg 1 mg, Slow IV Push, ONCE, 1 dose, On Thu12/11/22 at 1000, STAT [facility] Lacosamide (VIMPAT) 100 mg tablet 12-11 00:00: 00 Yes [id number] 100mg Take 1 tablet by mouth in the morning and 1 tablet in the evening. [facility] Lacosamide (VIMPAT) 100 mg tablet 12-11 00:00: 00 Yes [id number] 100mg Take 1 tablet by mouth in the morning and 1 tablet in the evening. [facility] acetaminoph en-codeine (TYLENOL #3) 300-30 mg tablet 1 tablet 11-18 05:30: 00 11-18 05:30 :00 No 1{tbl} 1 tablet, Oral, ONCE, 1 dose, On Thu11/18/22 at 0030, [facility] methocarbam oL (ROBAXIN) tablet 1,000 mg 11-18 05:30: 00 11-18 05:30 :00 No 1000mg 1,000 mg, Oral, ONCE, 1 dose, On Thu11/18/22 at 0030, [facility] ondansetron (ZOFRAN (PF)) injection 4 mg 11-18 04:45: 00 11-18 03:38 :00 No 4mg 4 mg, Slow IV Push, ONCE, 1 dose, On Thu11/17/22 at 2345, [facility] morpHINE (4 mg/mL) injection 4 mg 11-18 03:45: 00 11-18 03:38 :00 No 4mg 4 mg, Slow IV Push, ONCE, 1 dose, On Thu11/17/22 at 2245, Routine [facility] methocarbam oL (ROBAXIN) injection 1,000 mg 11-18 00:30: 00 11-17 23:47 :00 No 1000mg 1,000 mg, Intravenou s, ONCE, 1 dose, On Thu11/17/22 at 1930, MICHAEL [facility] methocarbam oL 500 mg tablet 11-18 00:00: 00 Yes [id number] 1000mg Take 2 tablets by mouth 4 (four) times daily as needed for Pain (scale 7-10). [facility] methocarbam oL 500 mg tablet 11-18 00:00: 00 Yes [id number] 1000mg Take 2 tablets by mouth 4 (four) times daily as needed for Pain (scale 7-10). [facility] methocarbam oL 500 mg tablet 11-18 00:00: 00 Yes [id number] 1000mg Take 2 tablets by mouth 4 (four) times daily as needed for Pain (scale 7-10). [facility] acetaminoph en-codeine 300-60 mg tablet 11-18 00:00: 00 11-26 04:59 :00 No [id number] 1{tbl} Take 1 tablet by mouth every 6 (six) hours as needed for Pain for up to 7 days. Indication s: acute pain [facility] ketorolac (TORADOL) injection 15 mg 11-18 00:00: 00 11-17 23:08 :00 No 15mg 15 mg, Slow IV Push, ONCE, 1 dose, On Thu11/17/22 at 1900, Routine [facility] morpHINE (4 mg/mL) injection 4 mg 11-17 23:45: 00 11-17 23:49 :00 No 4mg 4 mg, Slow IV Push, ONCE, 1 dose, On Thu11/17/22 at 1845, Routine [facility] ondansetron (ZOFRAN (PF)) injection 4 mg 11-17 23:15: 00 11-17 23:06 :00 No 4mg 4 mg, Slow IV Push, ONCE, 1 dose, On 11/17/22 at 1815, MICHAEL [facility] lisinopriL (PRINIVIL,Z ESTRIL) tablet 10 mg 08-02 15:00: 00 Yes 10mg 10 mg, Oral, DAILY, First dose on Thu08/02/22 at 0900, Until Discontinu ed, [facility] predniSONE (DELTASONE) tablet 40 mg 08-02 15:00: 00 08-07 14:59 :00 No 40mg 40 mg, Oral, DAILY, 5 doses, First dose on Thu08/02/22 at 0900, Last dose on Thu08/06/22 at 0900, Routine [facility] morpHINE (2 mg/mL) injection 2 mg 08-02 03:29: 15 Yes 2mg 2 mg, Slow IV Push, Q4HPRN, Starting on Thu08/01/22 at 2129, Until Discontinu ed, Routine, Pain (scale 7-10) [facility] levETIRAcet am (KEPPRA) in NACL (ISO-OS) 1,000 mg/100 mL RTU 08-02 00:00: 00 Yes 1000mg 1,000 mg, IV Piggyback, Q12H, First dose on Thu08/01/22 at 1800, Until Discontinu ed, Administer over 15 Minutes, 100 mL [facility] MULTIVITAMI N ORAL 08-01 23:49: 34 Yes 1{tbl} Take 1 Tab by mouth daily. [facility] omega-3 fatty acids-vitam in E (FISH OIL) 1,000 mg capsule 08-01 23:49: 34 Yes 1g Take 1 g by mouth daily. [facility] loratadine (CLARITIN LIQUI-GEL) 10 mg capsule 08-01 23:49: 34 Yes Take by mouth daily. [facility] ondansetron 4 mg tablet 08-01 23:49: 34 Yes 4mg Take 4 mg by mouth every 8 (eight) hours as needed. [facility] pantoprazol e 40 mg EC tablet 08-01 23:49: 34 Yes 40mg Take 40 mg by mouth daily. [facility] MULTIVITAMI N ORAL 08-01 23:49: 34 Yes 1{tbl} Take 1 Tab by mouth daily. [facility] omega-3 fatty acids-vitam in E (FISH OIL) 1,000 mg capsule 08-01 23:49: 34 Yes 1g Take 1 g by mouth daily. [facility] loratadine (CLARITIN LIQUI-GEL) 10 mg capsule 08-01 23:49: 34 Yes Take by mouth daily. [facility] ondansetron 4 mg tablet 08-01 23:49: 34 Yes 4mg Take 4 mg by mouth every 8 (eight) hours as needed. [facility] pantoprazol e 40 mg EC tablet 08-01 23:49: 34 Yes 40mg Take 40 mg by mouth daily. [facility] MULTIVITAMI N ORAL 08-01 23:49: 34 Yes 1{tbl} Take 1 Tab by mouth daily. [facility] omega-3 fatty acids-vitam in E (FISH OIL) 1,000 mg capsule 08-01 23:49: 34 Yes 1g Take 1 g by mouth daily. [facility] loratadine (CLARITIN LIQUI-GEL) 10 mg capsule 08-01 23:49: 34 Yes Take by mouth daily. [facility] ondansetron 4 mg tablet 08-01 23:49: 34 Yes 4mg Take 4 mg by mouth every 8 (eight) hours as needed. [facility] pantoprazol e 40 mg EC tablet 08-01 23:49: 34 Yes 40mg Take 40 mg by mouth daily. [facility] MULTIVITAMI N ORAL 08-01 23:49: 34 Yes 1{tbl} Take 1 Tab by mouth daily. [facility] omega-3 fatty acids-vitam in E (FISH OIL) 1,000 mg capsule 08-01 23:49: 34 Yes 1g Take 1 g by mouth daily. [facility] loratadine (CLARITIN LIQUI-GEL) 10 mg capsule 08-01 23:49: 34 Yes Take by mouth daily. [facility] ondansetron 4 mg tablet 08-01 23:49: 34 Yes 4mg Take 4 mg by mouth every 8 (eight) hours as needed. [facility] pantoprazol e 40 mg EC tablet 08-01 23:49: 34 Yes 40mg Take 40 mg by mouth daily. [facility] MULTIVITAMI N ORAL 08-01 23:49: 34 Yes 1{tbl} Take 1 Tab by mouth daily. [facility] omega-3 fatty acids-vitam in E (FISH OIL) 1,000 mg capsule 08-01 23:49: 34 Yes 1g Take 1 g by mouth daily. [facility] loratadine (CLARITIN LIQUI-GEL) 10 mg capsule 08-01 23:49: 34 Yes Take by mouth daily. [facility] ondansetron 4 mg tablet 08-01 23:49: 34 Yes 4mg Take 4 mg by mouth every 8 (eight) hours as needed. [facility] pantoprazol e 40 mg EC tablet 08-01 23:49: 34 Yes 40mg Take 40 mg by mouth daily. [facility] MULTIVITAMI N ORAL 08-01 23:49: 34 Yes 1{tbl} Take 1 Tab by mouth daily. [facility] omega-3 fatty acids-vitam in E (FISH OIL) 1,000 mg capsule 08-01 23:49: 34 Yes 1g Take 1 g by mouth daily. [facility] loratadine (CLARITIN LIQUI-GEL) 10 mg capsule 08-01 23:49: 34 Yes Take by mouth daily. [facility] ondansetron 4 mg tablet 08-01 23:49: 34 Yes 4mg Take 4 mg by mouth every 8 (eight) hours as needed. [facility] pantoprazol e 40 mg EC tablet 08-01 23:49: 34 Yes 40mg Take 40 mg by mouth daily. [facility] benzonatate (TESSALON PERLES) capsule 100 mg 08-01 20:00: 00 Yes 100mg 100 mg, Oral, Q8H, First dose on Thu08/01/22 at 1400, Until Discontinu ed, Routine [facility] ipratropium -albuteroL (DUONEB) 0.5 mg-3 mg(2.5 mg base)/3 mL nebulizer solution 3 mL 08-01 18:00: 00 Yes 3mL 3 mL, Inhalation , QID, First dose on Thu08/01/22 at 1200, Until Discontinu ed, Routine [facility] ipratropium -albuteroL (DUONEB) 0.5 mg-3 mg(2.5 mg base)/3 mL nebulizer solution 3 mL 08-01 17:07: 07 Yes 3mL 3 mL, Inhalation , QIDPRN, Starting on Thu08/01/22 at 1107, Until Discontinu ed, MICHAEL, Wheezing, Shortness of Breath [facility] sulfur hexafluorid e microsphr (LUMASON) injection 5 mL 08-01 17:00: 00 08-01 17:00 :00 No [id number] 5mL 5 mL, Intravenou s, ONCE, 1 dose, On Thu08/01/22 at 1100, Routine
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 : KYLEE MONTEZ [facility] pantoprazol e (PROTONIX) EC tablet 40 mg 08-01 15:00: 00 Yes 40mg 40 mg, Oral, DAILY, First dose on Thu08/01/22 at 0900, Until Discontinu ed, Routine [facility] aspirin chewable tablet 81 mg 08-01 15:00: 00 Yes 81mg 81 mg, Oral, DAILY, First dose on Thu08/01/22 at 0900, Until Discontinu ed, Routine [facility] amLODIPine (NORVASC) tablet 10 mg 08-01 15:00: 00 Yes 10mg 10 mg, Oral, DAILY, First dose on Thu08/01/22 at 0900, Until Discontinu ed, [facility] levETIRAcet [facility] (KEPPRA) tablet 500 mg 08-01 14:00: 00 08-01 23:56 :35 No 500mg 500 mg, Oral, BID, First dose on Thu08/01/22 at 0800, Until Discontinu ed, Routine [facility] carvediloL (COREG) tablet 6.25 mg 08-01 14:00: 00 08-01 17:29 :13 No 6.25mg 6.25 mg, Oral, BID MEALS, First dose on Thu08/01/22 at 0800, Until Discontinu ed, Routine [facility] levETIRAcet am (KEPPRA) in NACL (ISO-OS) 1,000 mg/100 mL RTU 08-01 06:45: 00 08-01 06:32 :00 No 1000mg 1,000 mg, IV Piggyback, ONCE, 1 dose, On Thu08/01/22 at 0045, Administer over 15 Minutes, 100 mL [facility] LORazepam (ATIVAN) injection 1 mg 08-01 05:52: 54 Yes 1mg 1 mg, Slow IV Push, Q4HPRN, Starting on Thu07/31/22 at 2352, Until Discontinu ed, Routine, Seizures, Agitation, Anxiety, ETOH / Cocaine Withdrawl [facility] foLIC acid (FOLATE) tablet 1 mg 08-01 05:45: 00 Yes 1mg 1 mg, Oral, DAILY, First dose on Thu07/31/22 at 2345, Until Discontinu ed, Routine [facility] thiamine (VITAMIN B1) tablet 100 mg 08-01 05:45: 00 Yes 100mg 100 mg, Oral, DAILY, First dose on Thu07/31/22 at 2345, Until Discontinu ed, Routine [facility] LORazepam (ATIVAN) injection 0.5 mg 08-01 05:30: 00 08-01 05:29 :00 No .5mg 0.5 mg, Slow IV Push, ONCE, 1 dose, On Thu07/31/22 at 2330, MICHAEL [facility] atorvastati n (LIPITOR) tablet 40 mg 08-01 03:00: 00 Yes 40mg 40 mg, Oral, QHS, First dose on Thu07/31/22 at 2100, Until Discontinu ed, Routine [facility] diphenhydrA MINE (BENADRYL) tablet 25 mg 08-01 00:32: 02 Yes 25mg 25 mg, Oral, Q6HPRN, Starting on Thu07/31/22 at 1832, Until Discontinu ed, Routine, Itching [facility] enoxaparin (LOVENOX) injection 40 mg 07-31 23:00: 00 Yes 40mg 40 mg, Subcutaneo us, DAILY, First dose on Thu07/31/22 at 1700, Until Discontinu ed, Routine [facility] morpHINE (2 mg/mL) injection 2 mg 07-31 23:00: 00 07-31 22:29 :00 No 2mg 2 mg, Slow IV Push, ONCE, 1 dose, On Thu07/31/22 at 1700, Routine [facility] HYDROcodone -acetaminop hen (NORCO) 10-325 mg tablet 1 tablet 07-31 22:01: 36 Yes 1{tbl} 1 tablet, Oral, Q6HPRN, Starting on Thu07/31/22 at 1601, Until Discontinu ed, Routine, Pain (scale 7-10) [facility] HYDROcodone -acetaminop hen (NORCO 5) 5-325 mg tablet 1 tablet 07-31 22:01: 34 08-02 22:00 :34 No 1{tbl} 1 tablet, Oral, Q6HPRN, Starting on Thu07/31/22 at 1601, Until 08/02/22 at 1600, Routine, Pain (scale 4-6) [facility] acetaminoph en (TYLENOL) tablet 650 mg 07-31 22:01: 33 Yes 650mg 650 mg, Oral, Q6HPRN, Starting on Arpita 07/31/22 at 1601, Until Discontinu ed, Routine, Pain (scale 1-3) [facility] ketorolac (TORADOL) injection 15 mg 07-31 21:45: 00 07-31 20:50 :00 No 15mg 15 mg, Slow IV Push, ONCE, 1 dose, On Arpita 07/31/22 at 1545, Routine [facility] ondansetron (ZOFRAN (PF)) injection 4 mg 07-31 21:00: 00 07-31 20:47 :00 No 4mg 4 mg, Slow IV Push, ONCE, 1 dose, On Arpita 07/31/22 at 1500, MICHAEL [facility] furosemide (LASIX) injection 40 mg 07-31 20:15: 00 Yes 40mg 40 mg, Slow IV Push, Q12H, First dose on Arpita 07/31/22 at 1415, Until Discontinu ed, Routine [facility] methylpredn isolone sod succ (SOLU-MEDRO L) injection 125 mg 07-31 19:30: 00 07-31 18:54 :00 No 125mg 125 mg, Slow IV Push, ONCE NOW, 1 dose, On Arpita 07/31/22 at 1330, MICHAEL [facility] ipratropium -albuteroL (DUONEB) 0.5 mg-3 mg(2.5 mg base)/3 mL nebulizer solution 3 mL 07-31 19:30: 00 07-31 18:48 :00 No 3mL 3 mL, Inhalation , ONCE, 1 dose, On Arpita 07/31/22 at 1330, MICHAEL [facility] pantoprazol e 40 mg EC tablet 07-31 17:15: 40 Yes 40mg Take 40 mg by mouth daily. [facility] MULTIVITAMI N ORAL 07-31 15:50: 57 Yes 1{tbl} Take 1 Tab by mouth daily. [facility] loratadine (CLARITIN LIQUI-GEL) 10 mg capsule 07-31 15:50: 57 Yes Take by mouth daily. [facility] ondansetron 4 mg tablet 07-31 15:50: 57 Yes 4mg Take 4 mg by mouth every 8 (eight) hours as needed. [facility] omega-3 fatty acids-vitam in E (FISH OIL) 1,000 mg capsule 07-31 15:21: 27 Yes 1g Take 1 g by mouth daily. [facility] TAKE ONE (1) TABLET(S) BY MOUTH THREE TIMES A DAY NEEDED. 07-28 00:00: 00 No Methylpredn isolone 4 mg tablet 2021-07 00:00: 00 05-12 04:59 :00 No [id number] 4mg Take 1 tablet through enteral tube in the morning for 1 dose. [facility] Methylpredn isolone 4 mg tablet 2021-07 00:00: 00 05-11 04:59 :00 No [id number] 4mg Take 1 tablet through enteral tube every 12 (twelve) hours for 2 doses. [facility] MULTIVITAMI N ORAL 2021-07 14:44: 48 Yes 1{tbl} Take 1 Tab by mouth daily. [facility] omega-3 fatty acids-vitam in E (FISH OIL) 1,000 mg capsule 2021-07 14:44: 48 Yes 1g Take 1 g by mouth daily. [facility] loratadine (CLARITIN LIQUI-GEL) 10 mg capsule 2021-07 14:44: 48 Yes Take by mouth daily. [facility] ondansetron (ZOFRAN) 4 mg tablet 2021-07 14:44: 48 Yes 4mg Take 4 mg by mouth every 8 (eight) hours as needed. [facility] pantoprazol e (PROTONIX) 40 mg EC tablet 2021-07 14:44: 48 Yes 40mg Take 40 mg by mouth daily. [facility] DULoxetine (CYMBALTA) capsule 30 mg 2021-07 14:00: 00 Yes 30mg 30 mg, Oral, DAILY, First dose on Thu05/08/22 at 0900, Until Discontinu ed, Routine [facility] divalproex (DEPAKOTE) EC tablet 1,000 mg 2021-07 13:00: 00 Yes 1000mg 1,000 mg, Oral, BID, First dose (after last modificati on) on Thu05/08/22 at 0800, Until Discontinu ed, Routine [facility] Methylpredn isolone (MEDROL) tablet 4 mg 2021-07 08:50: 10 05-09 08:59 :00 No 4mg 4 mg, Oral, Q8H TAPER, 3 doses, First dose on Thu05/08/22 at 0400, Last dose on Thu05/08/22 at 2000, Routine [facility] acetaminoph en-codeine (TYLENOL #3) 300-30 mg tablet 1 tablet 2021-07 04:07: 01 Yes 1{tbl} 1 tablet, Oral, Q4HPRN, Starting on Thu05/07/22 at 2307, Until Discontinu ed, Routine, Pain (scale 7-10) [facility] morpHINE (2 mg/mL) injection 2 mg 2021-07 03:03: 15 Yes 2mg 2 mg, Slow IV Push, Q4HPRN, Starting on Thu05/07/22 at 2203, Until Discontinu ed, Routine, Pain (scale 7-10) [facility] LORazepam (ATIVAN) tablet 1 mg 2021-07 00:02: 18 Yes 1mg 1 mg, Oral, Q6HPRN, Starting on Thu05/07/22 at 1902, Until Discontinu ed, Routine, Anxiety [facility] cyclobenzap rine 5 mg tablet 2021-07 00:00: 00 Yes [id number] 5mg Take 1 tablet by mouth in the morning and 1 tablet at noon and 1 tablet in the evening. [facility] cyclobenzap rine 5 mg tablet 2021-07 00:00: 00 Yes [id number] 5mg Take 1 tablet by mouth in the morning and 1 tablet at noon and 1 tablet in the evening. [facility] cyclobenzap rine 5 mg tablet 2021-07 00:00: 00 Yes [id number] 5mg Take 1 tablet by mouth in the morning and 1 tablet at noon and 1 tablet in the evening. [facility] cyclobenzap rine 5 mg tablet 2021-07 00:00: 00 Yes [id number] 5mg Take 1 tablet by mouth in the morning and 1 tablet at noon and 1 tablet in the evening. [facility] cyclobenzap rine 5 mg tablet 2021-07 00:00: 00 Yes [id number] 5mg Take 1 tablet by mouth in the morning and 1 tablet at noon and 1 tablet in the evening. [facility] cyclobenzap rine 5 mg tablet 2021-07 00:00: 00 Yes [id number] 5mg Take 1 tablet by mouth in the morning and 1 tablet at noon and 1 tablet in the evening. [facility] cyclobenzap rine 5 mg tablet 2021-07 00:00: 00 Yes [id number] 5mg Take 1 tablet by mouth in the morning and 1 tablet at noon and 1 tablet in the evening. [facility] cyclobenzap rine 5 mg tablet 2021-07 00:00: 00 Yes [id number] 5mg Take 1 tablet by mouth in the morning and 1 tablet at noon and 1 tablet in the evening. [facility] DULoxetine (CYMBALTA) 30 mg capsule 2021-07 00:00: 00 06-08 05:59 :00 No [id number] 60mg Take 2 capsules by mouth in the morning for 30 days. [facility] divalproex (DEPAKOTE) 250 mg EC tablet 2021-07 00:00: 00 06-08 05:59 :00 No [id number] 750mg Take 3 tablets by mouth every 8 (eight) hours for 30 days. [facility] LORazepam 1 mg tablet 2021-07 00:00: 00 05-19 04:59 :00 No [id number] 1mg Take 1 tablet by mouth every 6 (six) hours as needed for Anxiety or Agitation for up to 10 days. [facility] acetaminoph en-codeine 300-30 mg tablet 2021-07 00:00: 00 05-16 04:59 :00 No [id number] 1{tbl} Take 1 tablet by mouth every 4 (four) hours as needed for Pain (scale 7-10) for up to 7 days. Indication s: acute pain [facility] Methylpredn isolone 4 mg tablet 2021-07 00:00: 00 05-10 04:59 :00 No [id number] 4mg Take 1 tablet by mouth every 8 (eight) hours for 3 doses. [facility] divalproex (DEPAKOTE) EC tablet 750 mg 2021-07 01:00: 00 05-08 09:40 :23 No 750mg 750 mg, Oral, BID, First dose on Thu05/06/22 at 2000, Until Discontinu ed, Routine [facility] levETIRAcet am (KEPPRA) tablet 1,500 mg 2021-07 13:00: 00 05-06 18:38 :22 No 1500mg 1,500 mg, Oral, BID, First dose (after last modificati on) on Thu05/06/22 at 0800, Until Discontinu ed, Routine [facility] levETIRAcet am (KEPPRA) in NACL (ISO-OS) 1,000 mg/100 mL RTU 2021-07 05:00: 00 05-06 05:46 :00 No 1000mg 1,000 mg, IV Piggyback, ONCE, 1 dose, On Thu05/06/22 at 0000, Administer over 15 Minutes, 100 mL [facility] methocarbam oL (ROBAXIN) tablet 500 mg 2021-07 02:15: 00 2022- 10-18 23:21 :42 No 500mg 500 mg, Oral, QID, First dose on Thu05/05/22 at 2115, Until Discontinu ed, Routine [facility] LORazepam (ATIVAN) tablet 2 mg 2021-07 01:30: 00 05-06 01:03 :00 No 2mg 2 mg, Oral, ONCE, 1 dose, On Thu05/05/22 at 2030, Routine [facility] levETIRAcet am (KEPPRA) tablet 1,000 mg 2021-07 01:00: 00 05-06 04:48 :06 No 1000mg 1,000 mg, Oral, BID, First dose on Thu05/05/22 at 2000, Until Discontinu ed, Routine [facility] enoxaparin (LOVENOX) injection 40 mg 2021-07 00:15: 00 Yes 40mg 40 mg, Subcutaneo us, Q24H, First dose on Thu05/05/22 at 1915, Until Discontinu ed, Routine [facility] levETIRAcet am (KEPPRA) in NACL (ISO-OS) 1,000 mg/100 mL RTU 2021-07 19:45: 00 05-05 20:05 :00 No 1000mg 1,000 mg, IV Piggyback, ONCE, 1 dose, On Thu05/05/22 at 1445, Administer over 15 Minutes, 100 mL [facility] clonazePAM (KLONOPIN) tablet 0.5 mg 2021-07 19:30: 00 Yes .5mg 0.5 mg, Oral, BID, First dose on Thu05/05/22 at 1430, Until Discontinu ed, Routine [facility] ibuprofen (IBU) tablet 600 mg 2021-07 19:30: 00 Yes 600mg 600 mg, Oral, TID MEALS, First dose on Thu05/05/22 at 1430, Until Discontinu ed, Routine [facility] gabapentin (NEURONTIN) capsule 300 mg 2021-07 19:30: 00 Yes 300mg 300 mg, Oral, TID, First dose on Thu05/05/22 at 1430, Until Discontinu ed, Routine [facility] cyclobenzap rine (FLEXERIL) tablet 5 mg 2021-07 19:30: 00 Yes 5mg 5 mg, Oral, TID, First dose on Thu05/05/22 at 1430, Until Discontinu ed, Routine [facility] acetaminoph en (TYLENOL) tablet 1,000 mg 2021-07 19:30: 00 Yes 1000mg 1,000 mg, Oral, Q8H, First dose on Thu05/05/22 at 1430, Until Discontinu ed, Routine [facility] pantoprazol e (PROTONIX) EC tablet 40 mg 2021-07 14:00: 00 Yes 40mg 40 mg, Oral, DAILY, First dose on Thu05/05/22 at 0900, Until Discontinu ed, Routine [facility] docusate (COLACE) capsule 100 mg 2021-07 14:00: 00 Yes 100mg 100 mg, Oral, DAILY, First dose on Thu05/05/22 at 0900, Until Discontinu ed, Routine [facility] HYDROcodone -acetaminop hen (NORCO) 10-325 mg tablet 1 tablet 2021-07 10:32: 02 05-05 19:18 :52 No 1{tbl} 1 tablet, Oral, Q6HPRN, Starting on Thu05/05/22 at 0532, Until Thu05/05/22 at 1418, Routine, Pain (scale 7-10) [facility] ondansetron (ZOFRAN (PF)) injection 4 mg 2021-07 06:49: 57 Yes 4mg 4 mg, Slow IV Push, Q6HPRN, Starting on Thu05/05/22 at 0149, Until Discontinu ed, Routine, Nausea and Vomiting (N/V) [facility] HYDROcodone -acetaminop hen (NORCO 5) 5-325 mg tablet 1 tablet 2021-07 06:49: 41 05-05 10:32 :14 No 1{tbl} 1 tablet, Oral, Q6HPRN, Starting on Thu05/05/22 at 0149, Until Thu05/05/22 at 0532, Routine, Pain (scale 7-10) [facility] acetaminoph en (TYLENOL) tablet 325 mg 2021-07 06:49: 39 05-05 19:18 :52 No 325mg 325 mg, Oral, Q4HPRN, Starting on Thu05/05/22 at 0149, Until Thu05/05/22 at 1418, Routine, Pain (scale 4-6) [facility] ondansetron (ZOFRAN) tablet 4 mg 2021-07 04:00: 00 05-05 03:26 :00 No 4mg 4 mg, Oral, ONCE, 1 dose, On Thu05/04/22 at 2300, Routine [facility] morpHINE (2 mg/mL) injection 2 mg 2021-07 04:00: 00 05-05 03:26 :00 No 2mg 2 mg, Slow IV Push, ONCE, 1 dose, On 05/04/22 at 2300, Routine [facility] aspirin 81 mg chewable tablet 0 04-16 00:00: 00 Yes [id number] 81mg Take 1 tablet by mouth in the morning. [facility] aspirin 81 mg chewable tablet 2021-0 04-16 00:00: 00 Yes [id number] 81mg Take 1 tablet by mouth in the morning. [facility] aspirin 81 mg chewable tablet 2021-0 04-16 00:00: 00 Yes [id number] 81mg Take 1 tablet by mouth in the morning. [facility] aspirin 81 mg chewable tablet 2021-0 04-16 00:00: 00 Yes [id number] 81mg Take 1 tablet by mouth in the morning. [facility] aspirin 81 mg chewable tablet 2021-0 04-16 00:00: 00 Yes [id number] 81mg Take 1 tablet by mouth in the morning. [facility] aspirin 81 mg chewable tablet 2-0 28 00:00: 00 Yes [id number] 81mg Take 1 tablet by mouth in the morning. [facility] aspirin 81 mg chewable tablet 04-16 00:00: 00 Yes [id number] 81mg Take 1 tablet by mouth in the morning. [facility] aspirin 81 mg chewable tablet 04-16 00:00: 00 Yes [id number] 81mg Take 1 tablet by mouth in the morning. [facility] aspirin 81 mg chewable tablet 04-16 00:00: 00 Yes [id number] 81mg Take 1 tablet by mouth in the morning. [facility] MULTIVITAMI N ORAL 04-15 17:39: 14 Yes 1{tbl} Take 1 Tab by mouth daily. [facility] omega-3 fatty acids-vitam in E (FISH OIL) 1,000 mg capsule 04-15 17:39: 14 Yes 1g Take 1 g by mouth daily. [facility] loratadine (CLARITIN LIQUI-GEL) 10 mg capsule 04-15 17:39: 14 Yes Take by mouth daily. [facility] ondansetron (ZOFRAN) 4 mg tablet 04-15 17:39: 14 Yes 4mg Take 4 mg by mouth every 8 (eight) hours as needed. [facility] pantoprazol e (PROTONIX) 40 mg EC tablet 04-15 17:39: 14 Yes 40mg Take 40 mg by mouth daily. [facility] lisinopril- hydrochloro thiazide 20-12.5 mg per tablet 04-15 15:58: 35 04-15 00:00 :00 No 1{tbl} Take 1 tablet by mouth daily. [facility] levetiracet am (KEPPRA ORAL) 04-15 15:58: 35 04-15 00:00 :00 No Take by mouth. [facility] acetaminoph en-codeine (TYLENOL #4) 300-60 mg tablet 1 tablet 04-15 05:39: 23 04-15 14:39 :42 No 1{tbl} 1 tablet, Oral, Q6HPRN, Starting on Thu04/15/22 at 0039, Until Tu04/15/22 at 0939, Routine, Pain (scale 4-6), Pain (scale 1-3) [facility] LORazepam (ATIVAN) tablet 2 mg 04-15 03:30: 00 04-15 10:27 :00 No 2mg 2 mg, Oral, ONCE, 1 dose, On Thu04/14/22 at 2230, Routine [facility] levETIRAcet am (KEPPRA) tablet 1,000 mg 04-15 02:45: 00 Yes 1000mg 1,000 mg, Oral, BID, First dose (after last modificati on) on Thu04/14/22 at 2145, Until Discontinu ed, Routine [facility] ketorolac (TORADOL) injection 15 mg 04-15 02:13: 00 04-15 02:22 :00 No 15mg 15 mg, Slow IV Push, ONCE, 1 dose, On Thu04/14/22 at 2115, Routine [facility] atorvastati n 40 mg tablet 04-15 00:00: 00 Yes [id number] 40mg Take 1 tablet by mouth at bedtime. [facility] levETIRAcet am 1,000 mg tablet 04-15 00:00: 00 Yes [id number] 1000mg Take 1 tablet by mouth in the morning and 1 tablet in the evening. [facility] atorvastati n 40 mg tablet 04-15 00:00: 00 Yes [id number] 40mg Take 1 tablet by mouth at bedtime. [facility] atorvastati n 40 mg tablet 04-15 00:00: 00 Yes [id number] 40mg Take 1 tablet by mouth at bedtime. [facility] atorvastati n 40 mg tablet 04-15 00:00: 00 Yes [id number] 40mg Take 1 tablet by mouth at bedtime. [facility] atorvastati n 40 mg tablet 04-15 00:00: 00 Yes [id number] 40mg Take 1 tablet by mouth at bedtime. [facility] atorvastati n 40 mg tablet 04-15 00:00: 00 Yes [id number] 40mg Take 1 tablet by mouth at bedtime. [facility] atorvastati n 40 mg tablet 04-15 00:00: 00 Yes [id number] 40mg Take 1 tablet by mouth at bedtime. [facility] atorvastati n 40 mg tablet 04-15 00:00: 00 Yes [id number] 40mg Take 1 tablet by mouth at bedtime. [facility] atorvastati n 40 mg tablet 04-15 00:00: 00 Yes [id number] 40mg Take 1 tablet by mouth at bedtime. [facility] levETIRAcet am 1,000 mg tablet 04-15 00:00: 00 05-08 00:00 :00 No [id number] 1000mg Take 1 tablet by mouth in the morning and 1 tablet in the evening. [facility] lidocaine 5 % (700 mg/patch) patch 04-15 00:00: 00 04-23 04:59 :00 No [id number] 1{patch } Apply 1 Patch to area(s) in the morning for 7 days. [facility] HYDROcodone -acetaminop hen 5-325 mg tablet 04-15 00:00: 00 04-21 04:59 :00 No [id number] 1{tbl} Take 1 tablet by mouth every 6 (six) hours as needed for Pain (scale 7-10) for up to 5 days. Indication s: acute pain [facility] lidocaine (LIDODERM) 5 % (700 mg/patch) patch 1 Patch 04-14 21:45: 29 Yes 1{patch } 1 Patch, Topical, Administer over 12 Hours, [id number], Starting on Thu04/14/22 at 1645, Until Discontinu ed, Routine, Localized pain [facility] aspirin chewable tablet 81 mg 04-14 21:30: 00 Yes 81mg 81 mg, Oral, DAILY, First dose on Thu04/14/22 at 1630, Until Discontinu ed, Routine [facility] acetaminoph en (TYLENOL) tablet 650 mg 04-14 21:29: 25 Yes 650mg 650 mg, Oral, Q6HPRN, Starting on Thu04/14/22 at 1629, Until Discontinu ed, Routine, Pain (scale 1-3), Temp > 38.5 C, Temp > 37.5 C [facility] HYDROcodone -acetaminop hen (NORCO) 10-325 mg tablet 1 tablet 04-14 21:29: 02 04-15 05:39 :41 No 1{tbl} 1 tablet, Oral, Q6HPRN, Starting on Thu04/14/22 at 1629, Until Thu04/15/22 at 0039, Routine, Pain (scale 7-10), Pain (scale 4-6) [facility] sulfur hexafluorid e microsphr (LUMASON) injection 5 mL 04-14 16:45: 00 04-14 16:45 :00 No [id number] 5mL 5 mL, Intravenou s, ONCE, 1 dose, On Thu04/14/22 at 1145, Routine
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 : [employer] [facility] clopidogreL (PLAVIX) 75 mg tablet 75 mg 04-14 14:00: 00 Yes 75mg 75 mg, Oral, DAILY, First dose on Thu04/14/22 at 0900, Until Discontinu ed, Routine [facility] pantoprazol e (PROTONIX) EC tablet 40 mg 04-14 14:00: 00 Yes 40mg 40 mg, Oral, DAILY, First dose on Thu04/14/22 at 0900, Until Discontinu ed, Routine [facility] atorvastati n (LIPITOR) tablet 40 mg 04-14 02:00: 00 Yes 40mg 40 mg, Oral, QHS, First dose on Thu04/13/22 at 2100, Until Discontinu ed, Routine [facility] LORazepam (ATIVAN) tablet 1 mg 04-14 01:30: 00 04-14 01:45 :00 No 1mg 1 mg, Oral, ONCE, 1 dose, On 04/13/22 at 2030, Routine [facility] methocarbam oL (ROBAXIN) tablet 500 mg 04-14 01:00: 00 Yes 500mg 500 mg, Oral, QID, First dose on 04/13/22 at 2000, Until Discontinu ed, Routine [facility] heparin (porcine) injection 5,000 Units 04-14 01:00: 00 Yes 5000U 5,000 Units, Subcutaneo us, Q12H, First dose on 04/13/22 at 2000, Until Discontinu ed, Routine [facility] acetaminoph en (TYLENOL) tablet 650 mg 04-14 00:23: 25 04-14 21:29 :42 No 650mg 650 mg, Oral, Q6HPRN, Starting on 04/13/22 at 1923, Until 04/14/22 at 1629, Routine, Pain (scale 1-3), Pain (scale 4-6), Temp > 38.5 C, Temp > 37.5 C [facility] lidocaine (LIDODERM) 5 % (700 mg/patch) patch 1 Patch 04-14 00:22: 00 04-14 13:51 :00 No 1{patch } 1 Patch, Topical, Administer over 12 Hours, ONCE, 1 dose, On Thu04/13/22 at 1930, Routine [facility] FENTanyl PF (SUBLIMAZE (PF)) injection 50 mcg 04-13 20:30: 00 04-13 19:22 :00 No 50ug 50 mcg, Slow IV Push, ONCE, 1 dose, On Thu04/13/22 at 1530, Routine [facility] aspirin chewable tablet 650 mg 04-13 20:15: 00 04-13 20:15 :00 No 650mg 650 mg, Oral, ONCE, 1 dose, On Thu04/13/22 at 1515, Routine [facility] clopidogreL (PLAVIX) 300 mg tablet 300 mg 04-13 20:00: 00 04-13 19:15 :00 No 300mg 300 mg, Oral, ONCE, 1 dose, On 04/13/22 at 1500, Routine [facility] ondansetron (ZOFRAN (PF)) injection 4 mg 04-13 19:30: 00 04-13 19:22 :00 No 4mg 4 mg, Slow IV Push, ONCE, 1 dose, On 04/13/22 at 1430, MICHAEL [facility] iopamidol (ISOVUE 370-500 mL) injection 100 mL 04-13 18:31: 00 04-13 18:32 :00 No [id number] 100mL 100 mL, Intravenou s, ONCE, 1 dose, On 04/13/22 at 1345, Routine [facility] NaCl 0.9% (NS) injection 5 mL 04-13 18:14: 11 Yes 5mL 5 mL, Slow IV Push, PRN - SEE INSTRUCTIO NS, Starting on 04/13/22 at 1314, Until Discontinu ed, 10 mL [facility] aspirin chewable tablet 324 mg 11-24 14:00: 00 Yes 324mg 324 mg, Oral, DAILY, First dose on 11/24/21 at 0900, Until Discontinu ed, Routine [facility] metoclopram iker HCl (REGLAN) injection 10 mg 11-23 22:30: 00 11-23 21:24 :00 No 10mg 10 mg, Slow IV Push, ONCE, 1 dose, On 11/23/21 at 1730, MICHAEL [facility] acetaminoph en (TYLENOL) tablet 1,000 mg 11-23 22:15: 00 11-23 21:09 :00 No 1000mg 1,000 mg, Oral, ONCE, 1 dose, [facility] (ZOFRAN (PF)) injection 4 mg 11-23 21:45: 00 11-23 20:30 :00 No 4mg 4 mg, Slow IV Push, ONCE, 1 dose, On 11/23/21 at 1645, MICHAEL [facility] NaCl 0.9% (NS) bolus infusion 1,000 mL 11-23 21:30: 00 11-23 21:56 :00 No 1000mL at 999 mL/hr, 1,000 mL, IV Infusion, ONCE, 1 dose, On 11/23/21 at 1630, MICHAEL [facility] LORazepam (ATIVAN) injection 4 mg 11-23 21:30: 00 11-23 20:23 :00 No 4mg 4 mg, Slow IV Push, ONCE, 1 dose, On 11/23/21 at 1630, STAT [facility] levETIRAcet am (KEPPRA) in NACL (ISO-OS) 1,500 mg/100 mL RTU 11-23 21:30: 00 11-23 20:47 :00 No 1500mg 1,500 mg, IV Piggyback, ONCE, 1 dose, On 11/23/21 at 1630, Administer over 15 Minutes, 100 mL [facility] Dose Unknown 2021-0 4-08 00:00: 00 No Dose Unknown 2021-0 4-08 00:00: 00 No Prozac 20 mg capsule 2021-0 3-21 00:00: 00 No 1mg Prozac 20 mg capsule 2021-0 3-21 00:00: 00 No 1mg Dose Unknown 2021-0 3-16 00:00: 00 No Dose Unknown 2022-0 [...] Unknown 3- 00:00: 00 No Dose Unknown 09-22 00:00: 00 No Dose Unknown 09-22 00:00: 00 No Dose Unknown 3 00:00: [...]
Durat ion of Therapy: 7 days [facility] levoFLOXaci n (LEVAQUIN) tablet 500 mg 03-17 04:00: 00 03-17 04:22 :00 No 500mg 500 mg, Oral, ONCE, 1 dose, 03/16/21 at 2315, MICHAEL
Re ason for Anti-Infec tive: Documented Infection< br>Documen sherice Infection Site: Respirator y
Durat ion of Therapy: 7 days [facility] morpHINE injection 4 mg 03-17 01:58: 00 03-17 02:13 :00 No 4mg 4 mg, Slow IV Push, ONCE, 1 dose, 03/16/21 at 2100, STAT [facility] ondansetron (ZOFRAN (PF)) injection 4 mg 03-17 01:58: 00 03-17 02:12 :00 No 4mg 4 mg, Slow IV Push, ONCE, 1 dose, 03/16/21 [facility] 2100, [facility] 4 mg 03-17 01:58: 00 03-17 02:13 :00 No 4mg 4 mg, Slow IV Push, ONCE, 1 dose, 03/16/21 at 2100, STAT [facility] ondansetron (ZOFRAN (PF)) injection 4 mg 03-17 01:58: 00 03-17 02:12 :00 No 4mg 4 mg, Slow IV Push, ONCE, 1 dose, 03/16/21 at 2100, [facility] ipratropium -albuteroL (DUONEB) 0.5 mg-3 mg(2.5 mg base)/3 mL nebulizer solution 3 mL 03-17 01:57: 00 03-17 02:15 :00 No 3mL 3 mL, Inhalation , ONCE, 1 dose, 03/16/21 at 2100, [facility] NaCl 0.9% (NS) IV infusion 1,000 mL 03-17 01:57: 00 03-17 03:07 :00 No 1000mL at 999 mL/hr, Intravenou s, ONCE, 1 dose, 03/16/21 at 2100, [facility] methylpredn isolone sod succ (SOLU-MEDRO L) injection 125 mg 03-17 01:57: 00 03-17 02:11 :00 No 125mg 125 mg, Slow IV Push, ONCE, 1 dose, 03/16/21 at 2100, STAT [facility] ipratropium -albuteroL (DUONEB) 0.5 mg-3 mg(2.5 mg base)/3 mL nebulizer solution 3 mL 03-17 01:57: 00 03-17 02:15 :00 No 3mL 3 mL, Inhalation , ONCE, 1 dose, 03/16/21 at 2100, [facility] ipratropium -albuteroL (DUONEB) 0.5 mg-3 mg(2.5 mg base)/3 mL nebulizer solution 3 mL 03-17 01:57: 00 03-17 02:15 :00 No 3mL 3 mL, Inhalation , ONCE, 1 dose, 03/16/21 at 2100, [facility] NaCl 0.9% (NS) IV infusion 1,000 mL 03-17 01:57: 00 03-17 03:07 :00 No 1000mL at 999 mL/hr, Intravenou s, ONCE, 1 dose, 03/16/21 at 2100, [facility] methylpredn isolone sod succ (SOLU-MEDRO L) injection 125 mg 03-17 01:57: 00 03-17 02:11 :00 No 125mg 125 mg, Slow IV Push, ONCE, 1 dose, 03/16/21 at 2100, [facility] ipratropium -albuteroL (DUONEB) 0.5 mg-3 mg(2.5 mg base)/3 mL nebulizer solution 3 mL 03-17 01:57: 00 03-17 02:15 :00 No 3mL 3 mL, Inhalation , ONCE, 1 dose, 03/16/21 at 2100, MICHAEL [facility] levoFLOXaci n 500 mg tablet 03-17 00:00: 00 03-24 04:59 :00 No [id number] 500mg Take 1 tablet by mouth daily for 6 days. [facility] levoFLOXaci n 500 mg tablet 03-17 00:00: 00 03-24 04:59 :00 No [id number] 500mg Take 1 tablet by mouth daily for 6 days. [facility] levoFLOXaci n 500 mg tablet 03-17 00:00: 00 03-24 04:59 :00 No [id number] 500mg Take 1 tablet by mouth daily for 6 days. [facility] levoFLOXaci n 500 mg tablet 03-17 00:00: 00 03-24 04:59 :00 No [id number] 500mg Take 1 tablet by mouth daily for 6 days. [facility] predniSONE 10 mg tablet 03-17 00:00: 00 03-22 04:59 :00 No [id number] 30mg Take 3 tablets by mouth daily for 4 days. [facility] predniSONE 10 mg tablet 03-17 00:00: 00 03-22 04:59 :00 No [id number] 30mg Take 3 tablets by mouth daily for 4 days. [facility] predniSONE 10 mg tablet 03-17 00:00: 00 03-22 04:59 :00 No [id number] 30mg Take 3 tablets by mouth daily for 4 days. [facility] predniSONE 10 mg tablet 03-17 00:00: 00 03-22 04:59 :00 No [id number] 30mg Take 3 tablets by mouth daily for 4 days. [facility] albuterol (VENTOLIN) inhaler 4 Puff 03-15 01:45: 00 03-15 00:44 :00 No [id number] 4{puff} 4 Puff, Inhalation , ONCE, 1 dose, Arpita 03/14/21 at 2044, Routine [facility] dexamethaso ne (DECADRON) injection 10 mg 03-15 01:45: 00 03-15 00:45 :00 No [id number] 10mg 10 mg, Intramuscu lar, ONCE, 1 dose, Arpita 03/14/21 at 2044, Routine [facility] albuterol 2.5 mg /3 mL (0.083 %) nebulizer solution 03-15 00:00: 00 Yes [id number] 2.5mg Inhale 3 mL every 4 (four) hours as needed for Wheezing or Shortness of Breath. [facility] albuterol 2.5 mg /3 mL (0.083 %) nebulizer solution 03-15 00:00: 00 Yes [id number] 2.5mg Inhale 3 mL every 4 (four) hours as needed for Wheezing or Shortness of Breath. [facility] albuterol 2.5 mg /3 mL (0.083 %) nebulizer solution 03-15 00:00: 00 Yes [id number] 2.5mg Inhale 3 mL every 4 (four) hours as needed for Wheezing or Shortness of Breath. [facility] albuterol 2.5 mg /3 mL (0.083 %) nebulizer solution 03-15 00:00: 00 Yes [id number] 2.5mg Inhale 3 mL every 4 (four) hours as needed for Wheezing or Shortness of Breath. [facility] albuterol 2.5 mg /3 mL (0.083 %) nebulizer solution 03-15 00:00: 00 Yes [id number] 2.5mg Inhale 3 mL every 4 (four) hours as needed for Wheezing or Shortness of Breath. [facility] albuterol 2.5 mg /3 mL (0.083 %) nebulizer solution 03-15 00:00: 00 Yes [id number] 2.5mg Inhale 3 mL every 4 (four) hours as needed for Wheezing or Shortness of Breath. [facility] albuterol 2.5 mg /3 mL (0.083 %) nebulizer solution 03-15 00:00: 00 Yes [id number] 2.5mg Inhale 3 mL every 4 (four) hours as needed for Wheezing or Shortness of Breath. [facility] albuterol 2.5 mg /3 mL (0.083 %) nebulizer solution 03-15 00:00: 00 Yes [id number] 2.5mg Inhale 3 mL every 4 (four) hours as needed for Wheezing or Shortness of Breath. [facility] albuterol 2.5 mg /3 mL (0.083 %) nebulizer solution 03-15 00:00: 00 Yes [id number] 2.5mg Inhale 3 mL every 4 (four) hours as needed for Wheezing or Shortness of Breath. [facility] albuterol 2.5 mg /3 mL (0.083 %) nebulizer solution 03-15 00:00: 00 Yes [id number] 2.5mg Inhale 3 mL every 4 (four) hours as needed for Wheezing or Shortness of Breath. [facility] albuterol 2.5 mg /3 mL (0.083 %) nebulizer solution 03-15 00:00: 00 Yes [id number] 2.5mg Inhale 3 mL every 4 (four) hours as needed for Wheezing or Shortness of Breath. [facility] albuterol 2.5 mg /3 mL (0.083 %) nebulizer solution 03-15 00:00: 00 Yes [id number] 2.5mg Inhale 3 mL every 4 (four) hours as needed for Wheezing or Shortness of Breath. [facility] albuterol 2.5 mg /3 mL (0.083 %) nebulizer solution 03-15 00:00: 00 Yes [id number] 2.5mg Inhale 3 mL every 4 (four) hours as needed for Wheezing or Shortness of Breath. [facility] albuterol 2.5 mg /3 mL (0.083 %) nebulizer solution 03-15 00:00: 00 Yes [id number] 2.5mg Inhale 3 mL every 4 (four) hours as needed for Wheezing or Shortness of Breath. [facility] albuterol 2.5 mg /3 mL (0.083 %) nebulizer solution 03-15 00:00: 00 Yes [id number] 2.5mg Inhale 3 mL every 4 (four) hours as needed for Wheezing or Shortness of Breath. [facility] albuterol 2.5 mg /3 mL (0.083 %) nebulizer solution 03-15 00:00: 00 Yes [id number] 2.5mg Inhale 3 mL every 4 (four) hours as needed for Wheezing or Shortness of Breath. [facility] albuterol 2.5 mg /3 mL (0.083 %) nebulizer solution 03-15 00:00: 00 Yes [id number] 2.5mg Inhale 3 mL every 4 (four) hours as needed for Wheezing or Shortness of Breath. [facility] albuterol 2.5 mg /3 mL (0.083 %) nebulizer solution 03-15 00:00: 00 Yes [id number] 2.5mg Inhale 3 mL every 4 (four) hours as needed for Wheezing or Shortness of Breath. [facility] albuterol 2.5 mg /3 mL (0.083 %) nebulizer solution 03-15 00:00: 00 Yes [id number] 2.5mg Inhale 3 mL every 4 (four) hours as needed for Wheezing or Shortness of Breath. [facility] levETIRAcet am (KEPPRA) in NACL (ISO-OS) 1,000 mg/100 mL RTU 02-19 20:15: 00 02-19 19:30 :00 No 1000mg 1,000 mg, IV Infusion, ONCE, 1 dose, Thu02/19/21 at 1515, Administer over 15 Minutes, 100 mL [facility] levetiracet am (KEPPRA ORAL) 02-19 19:45: 33 Yes Take by mouth. [facility] levetiracet am (KEPPRA ORAL) 02-19 19:45: 33 Yes Take by mouth. [facility] levetiracet am (KEPPRA ORAL) 02-19 19:45: 33 Yes Take by mouth. [facility] levetiracet am (KEPPRA ORAL) 02-19 19:45: 33 Yes Take by mouth. [facility] levetiracet am (KEPPRA ORAL) 02-19 19:45: 33 Yes Take by mouth. [facility] levetiracet am (KEPPRA ORAL) 02-19 19:45: 33 Yes Take by mouth. [facility] LISINOPRIL- HYDROCHLORO THIAZIDE ORAL 02-19 19:41: 15 02-19 00:00 :00 No Take by mouth. [facility] dicyclomine (BENTYL) injection 20 mg 02-19 19:15: 00 02-19 19:04 :00 No 20mg 20 mg, Intramuscu lar, ONCE, 1 dose, e 02/19/21 at 1415, Routine [facility] proMETHazin e (PHENERGAN) 25 mg in NaCl 0.9% (NS) 50 mL piggyback 02-19 19:15: 00 02-19 19:03 :00 No 25mg 25 mg, IV Piggyback, ONCE, 1 dose, 02/19/21 at 1415, 50 mL [facility] morpHINE injection 4 mg 02-19 17:15: 00 02-19 17:05 :00 No 4mg 4 mg, Slow IV Push, ONCE, 1 dose, Thu02/19/21 at 1215, STAT [facility] NaCl 0.9% (NS) bolus infusion 1,000 mL 02-19 17:15: 00 02-19 19:04 :00 No 1000mL at 999 mL/hr, 1,000 mL, IV Infusion, ONCE, 1 dose, Thu02/19/21 at 1215, STAT [facility] ondansetron (ZOFRAN (PF)) injection 4 mg 02-19 17:00: 00 02-19 15:59 :00 No 4mg 4 mg, Slow IV Push, ONCE, 1 dose, Thu02/19/21 at 1200, MICHAEL [facility] iopamidol (ISOVUE 370-500 mL) injection 100 mL 02-19 16:35: 00 02-19 16:45 :00 No [id number] 100mL 100 mL, Intravenou s, ONCE, 1 dose, Thu02/19/21 at 1145, Routine [facility] levetiracet am (KEPPRA ORAL) 02-19 14:45: 33 Yes Take by mouth. [facility] levetiracet am (KEPPRA ORAL) 02-19 14:45: 33 Yes Take by mouth. [facility] levetiracet am (KEPPRA ORAL) 02-19 14:45: 33 Yes Take by mouth. [facility] levetiracet am (KEPPRA ORAL) 02-19 14:45: 33 Yes Take by mouth. [facility] levetiracet am (KEPPRA ORAL) 02-19 14:45: 33 Yes Take by mouth. [facility] proMETHazin e 25 mg tablet 02-19 00:00: 00 Yes [id number] 25mg Take 1 tablet by mouth every 6 (six) hours as needed for Nausea and Vomiting (N/V). [facility] dicyclomine 20 mg tablet 02-19 00:00: 00 Yes [id number] 20mg Take 1 tablet by mouth 4 (four) times daily as needed for Abdominal pain. [facility] proMETHazin e 25 mg tablet 02-19 00:00: 00 Yes [id number] 25mg Take 1 tablet by mouth every 6 (six) hours as needed for Nausea and Vomiting (N/V). [facility] dicyclomine 20 mg tablet 2020-0 8- 00:00: 00 Yes [id number] 20mg Take 1 tablet by mouth 4 (four) times daily as needed for Abdominal pain. [facility] proMETHazin e 25 mg tablet 0 8- 00:00: 00 Yes [id number] 25mg Take 1 tablet by mouth every 6 (six) hours as needed for Nausea and Vomiting (N/V). [facility] dicyclomine 20 mg tablet 0 02-19 00:00: 00 Yes [id number] 20mg Take 1 tablet by mouth 4 (four) times daily as needed for Abdominal pain. [facility] proMETHazin e 25 mg tablet 0 02-19 00:00: 00 Yes [id number] 25mg Take 1 tablet by mouth every 6 (six) hours as needed for Nausea and Vomiting (N/V). [facility] dicyclomine 20 mg tablet 2020-0 02-19 00:00: 00 Yes [id number] 20mg Take 1 tablet by mouth 4 (four) times daily as needed for Abdominal pain. [facility] proMETHazin e 25 mg tablet 0 02-19 00:00: 00 Yes [id number] 25mg Take 1 tablet by mouth every 6 (six) hours as needed for Nausea and Vomiting (N/V). [facility] dicyclomine 20 mg tablet 2020-0 8-03 00:00: 00 Yes [id number] 20mg Take 1 tablet by mouth 4 (four) times daily as needed for Abdominal pain. [facility] proMETHazin e 25 mg tablet 2020-0 8-03 00:00: 00 Yes [id number] 25mg Take 1 tablet by mouth every 6 (six) hours as needed for Nausea and Vomiting (N/V). [facility] dicyclomine 20 mg tablet 2020-0 8-03 00:00: 00 Yes [id number] 20mg Take 1 tablet by mouth 4 (four) times daily as needed for Abdominal pain. [facility] proMETHazin e 25 mg tablet 02-19 00:00: 00 Yes [id number] 25mg Take 1 tablet by mouth every 6 (six) hours as needed for Nausea and Vomiting (N/V). [facility] dicyclomine 20 mg tablet 02-19 00:00: 00 Yes [id number] 20mg Take 1 tablet by mouth 4 (four) times daily as needed for Abdominal pain. [facility] proMETHazin e 25 mg tablet 02-19 00:00: 00 Yes [id number] 25mg Take 1 tablet by mouth every 6 (six) hours as needed for Nausea and Vomiting (N/V). [facility] dicyclomine 20 mg tablet 02-19 00:00: 00 Yes [id number] 20mg Take 1 tablet by mouth 4 (four) times daily as needed for Abdominal pain. [facility] proMETHazin e 25 mg tablet 02-19 00:00: 00 Yes [id number] 25mg Take 1 tablet by mouth every 6 (six) hours as needed for Nausea and Vomiting (N/V). [facility] dicyclomine 20 mg tablet 02-19 00:00: 00 Yes [id number] 20mg Take 1 tablet by mouth 4 (four) times daily as needed for Abdominal pain. [facility] proMETHazin e 25 mg tablet 02-19 00:00: 00 Yes [id number] 25mg Take 1 tablet by mouth every 6 (six) hours as needed for Nausea and Vomiting (N/V). [facility] dicyclomine 20 mg tablet 02-19 00:00: 00 Yes [id number] 20mg Take 1 tablet by mouth 4 (four) times daily as needed for Abdominal pain. [facility] proMETHazin e 25 mg tablet 0 02-19 00:00: 00 Yes [id number] 25mg Take 1 tablet by mouth every 6 (six) hours as needed for Nausea and Vomiting (N/V). [facility] dicyclomine 20 mg tablet 2020-0 02-19 00:00: 00 Yes [id number] 20mg Take 1 tablet by mouth 4 (four) times daily as needed for Abdominal pain. [facility] proMETHazin e 25 mg tablet 0 02-19 00:00: 00 Yes [id number] 25mg Take 1 tablet by mouth every 6 (six) hours as needed for Nausea and Vomiting (N/V). [facility] dicyclomine 20 mg tablet 0 02-19 00:00: 00 Yes [id number] 20mg Take 1 tablet by mouth 4 (four) times daily as needed for Abdominal pain. [facility] proMETHazin e 25 mg tablet 02-19 00:00: 00 Yes [id number] 25mg Take 1 tablet by mouth every 6 (six) hours as needed for Nausea and Vomiting (N/V). [facility] dicyclomine 20 mg tablet 02-19 00:00: 00 Yes [id number] 20mg Take 1 tablet by mouth 4 (four) times daily as needed for Abdominal pain. [facility] proMETHazin e 25 mg tablet 02-19 00:00: 00 Yes [id number] 25mg Take 1 tablet by mouth every 6 (six) hours as needed for Nausea and Vomiting (N/V). [facility] dicyclomine 20 mg tablet 02-19 00:00: 00 Yes [id number] 20mg Take 1 tablet by mouth 4 (four) times daily as needed for Abdominal pain. [facility] proMETHazin e 25 mg tablet 0 02-19 00:00: 00 Yes [id number] 25mg Take 1 tablet by mouth every 6 (six) hours as needed for Nausea and Vomiting (N/V). [facility] dicyclomine 20 mg tablet 0 02-19 00:00: 00 Yes [id number] 20mg Take 1 tablet by mouth 4 (four) times daily as needed for Abdominal pain. [facility] proMETHazin e 25 mg tablet 0 02-19 00:00: 00 Yes [id number] 25mg Take 1 tablet by mouth every 6 (six) hours as needed for Nausea and Vomiting (N/V). [facility] dicyclomine 20 mg tablet 0 02-19 00:00: 00 Yes [id number] 20mg Take 1 tablet by mouth 4 (four) times daily as needed for Abdominal pain. [facility] proMETHazin e 25 mg tablet 02-19 00:00: 00 Yes [id number] 25mg Take 1 tablet by mouth every 6 (six) hours as needed for Nausea and Vomiting (N/V). [facility] dicyclomine 20 mg tablet 02-19 00:00: 00 Yes [id number] 20mg Take 1 tablet by mouth 4 (four) times daily as needed for Abdominal pain. [facility] proMETHazin e 25 mg tablet 02-19 00:00: 00 Yes [id number] 25mg Take 1 tablet by mouth every 6 (six) hours as needed for Nausea and Vomiting (N/V). [facility] dicyclomine 20 mg tablet 02-19 00:00: 00 Yes [id number] 20mg Take 1 tablet by mouth 4 (four) times daily as needed for Abdominal pain. [facility] proMETHazin e 25 mg tablet 02-19 00:00: 00 Yes [id number] 25mg Take 1 tablet by mouth every 6 (six) hours as needed for Nausea and Vomiting (N/V). [facility] dicyclomine 20 mg tablet 02-19 00:00: 00 Yes [id number] 20mg Take 1 tablet by mouth 4 (four) times daily as needed for Abdominal pain. [facility] proMETHazin e 25 mg tablet 02-19 00:00: 00 Yes [id number] 25mg Take 1 tablet by mouth every 6 (six) hours as needed for Nausea and Vomiting (N/V). [facility] dicyclomine 20 mg tablet 02-19 00:00: 00 Yes [id number] 20mg Take 1 tablet by mouth 4 (four) times daily as needed for Abdominal pain. [facility] ZONISAMIDE 100 mg capsule 11-15 00:00: 00 Yes TAKE 1 CAPSULE BY MOUTH TWICE A DAY [facility] ZONISAMIDE 100 mg capsule 2018- 4-29 00:00: 00 02-19 00:00 :00 No TAKE 1 CAPSULE BY MOUTH TWICE A DAY [facility] ondansetron (ZOFRAN) 4 mg tablet 02-09 20:05: 01 Yes 4mg Take 4 mg by mouth every 8 (eight) hours as needed. [facility] pantoprazol e (PROTONIX) 40 mg EC tablet 02-09 20:05: 01 Yes 40mg Take 40 mg by mouth daily. [facility] ondansetron (ZOFRAN) 4 mg tablet 02-09 20:05: 01 Yes 4mg Take 4 mg by mouth every 8 (eight) hours as needed. [facility] pantoprazol e (PROTONIX) 40 mg EC tablet 02-09 20:05: 01 Yes 40mg Take 40 mg by mouth daily. [facility] LISINOPRIL- HYDROCHLORO THIAZIDE ORAL 02-09 20:05: 01 Yes Take by mouth. [facility] ondansetron (ZOFRAN) 4 mg tablet 02-09 20:05: 01 Yes 4mg Take 4 mg by mouth every 8 (eight) hours as needed. [facility] pantoprazol e (PROTONIX) 40 mg EC tablet 02-09 20:05: 01 Yes 40mg Take 40 mg by mouth daily. [facility] ondansetron (ZOFRAN) 4 mg tablet 02-09 20:05: 01 Yes 4mg Take 4 mg by mouth every 8 (eight) hours as needed. [facility] pantoprazol e (PROTONIX) 40 mg EC tablet 02-09 20:05: 01 Yes 40mg Take 40 mg by mouth daily. [facility] ondansetron (ZOFRAN) 4 mg tablet 02-09 20:05: 01 Yes 4mg Take 4 mg by mouth every 8 (eight) hours as needed. [facility] pantoprazol e (PROTONIX) 40 mg EC tablet 02-09 20:05: 01 Yes 40mg Take 40 mg by mouth daily. [facility] ondansetron (ZOFRAN) 4 mg tablet 02-09 20:05: 01 Yes 4mg Take 4 mg by mouth every 8 (eight) hours as needed. [facility] pantoprazol e (PROTONIX) 40 mg EC tablet 02-09 20:05: 01 Yes 40mg Take 40 mg by mouth daily. [facility] ondansetron (ZOFRAN) 4 mg tablet 02-09 20:05: 01 Yes 4mg Take 4 mg by mouth every 8 (eight) hours as needed. [facility] pantoprazol e (PROTONIX) 40 mg EC tablet 02-09 20:05: 01 Yes 40mg Take 40 mg by mouth daily. [facility] lisinopril- hydrochloro thiazide 20-12.5 mg per tablet 02-09 20:03: 30 Yes 1{tbl} Take 1 tablet by mouth daily. [facility] lisinopril- hydrochloro thiazide 20-12.5 mg per tablet 02-09 20:03: 30 Yes 1{tbl} Take 1 tablet by mouth daily. [facility] lisinopril- hydrochloro thiazide 20-12.5 mg per tablet 02-09 20:03: 30 Yes 1{tbl} Take 1 tablet by mouth daily. [facility] lisinopril- hydrochloro thiazide 20-12.5 mg per tablet 02-09 20:03: 30 Yes 1{tbl} Take 1 tablet by mouth daily. [facility] lisinopril- hydrochloro thiazide 20-12.5 mg per tablet 02-09 20:03: 30 Yes 1{tbl} Take 1 tablet by mouth daily. [facility] lisinopril- hydrochloro thiazide 20-12.5 mg per tablet 02-09 20:03: 30 Yes 1{tbl} Take 1 tablet by mouth daily. [facility] lisinopril- hydrochloro thiazide 20-12.5 mg per tablet 02-09 20:03: 30 Yes 1{tbl} Take 1 tablet by mouth daily. [facility] omega-3 fatty acids-vitam in E (FISH OIL) 1,000 mg capsule 02-09 19:59: 52 Yes 1g Take 1 g by mouth daily. [facility] omega-3 fatty acids-vitam in E (FISH OIL) 1,000 mg capsule 02-09 19:59: 52 Yes 1g Take 1 g by mouth daily. [facility] omega-3 fatty acids-vitam in E (FISH OIL) 1,000 mg capsule 02-09 19:59: 52 Yes 1g Take 1 g by mouth daily. [facility] omega-3 fatty acids-vitam in E (FISH OIL) 1,000 mg capsule 02-09 19:59: 52 Yes 1g Take 1 g by mouth daily. [facility] omega-3 fatty acids-vitam in E (FISH OIL) 1,000 mg capsule 02-09 19:59: 52 Yes 1g Take 1 g by mouth daily. [facility] omega-3 fatty acids-vitam in E (FISH OIL) 1,000 mg capsule 02-09 19:59: 52 Yes 1g Take 1 g by mouth daily. [facility] omega-3 fatty acids-vitam in E (FISH OIL) 1,000 mg capsule 02-09 19:59: 52 Yes 1g Take 1 g by mouth daily. [facility] MULTIVITAMI N ORAL 02-09 19:58: 14 Yes 1{tbl} Take 1 Tab by mouth daily. [facility] loratadine (CLARITIN LIQUI-GEL) 10 mg capsule 02-09 19:58: 14 Yes Take by mouth daily. [facility] MULTIVITAMI N ORAL 02-09 19:58: 14 Yes 1{tbl} Take 1 Tab by mouth daily. [facility] loratadine (CLARITIN LIQUI-GEL) 10 mg capsule 02-09 19:58: 14 Yes Take by mouth daily. [facility] MULTIVITAMI N ORAL 02-09 19:58: 14 Yes 1{tbl} Take 1 Tab by mouth daily. [facility] loratadine (CLARITIN LIQUI-GEL) 10 mg capsule 02-09 19:58: 14 Yes Take by mouth daily. [facility] MULTIVITAMI N ORAL 02-09 19:58: 14 Yes 1{tbl} Take 1 Tab by mouth daily. [facility] loratadine (CLARITIN LIQUI-GEL) 10 mg capsule 02-09 19:58: 14 Yes Take by mouth daily. [facility] MULTIVITAMI N ORAL 02-09 19:58: 14 Yes 1{tbl} Take 1 Tab by mouth daily. [facility] loratadine (CLARITIN LIQUI-GEL) 10 mg capsule 02-09 19:58: 14 Yes Take by mouth daily. [facility] MULTIVITAMI N ORAL 02-09 19:58: 14 Yes 1{tbl} Take 1 Tab by mouth daily. [facility] loratadine (CLARITIN LIQUI-GEL) 10 mg capsule 02-09 19:58: 14 Yes Take by mouth daily. [facility] MULTIVITAMI N ORAL 02-09 19:58: 14 Yes 1{tbl} Take 1 Tab by mouth daily. [facility] loratadine (CLARITIN LIQUI-GEL) 10 mg capsule 02-09 19:58: 14 Yes Take by mouth daily. [facility] ondansetron (ZOFRAN) 4 mg tablet 02-09 15:05: 01 Yes 4mg Take 4 mg by mouth every 8 (eight) hours as needed. [facility] pantoprazol e (PROTONIX) 40 mg EC tablet 02-09 15:05: 01 Yes 40mg Take 40 mg by mouth daily. [facility] ondansetron (ZOFRAN) 4 mg tablet 02-09 15:05: 01 Yes 4mg Take 4 mg by mouth every 8 (eight) hours as needed. [facility] pantoprazol e (PROTONIX) 40 mg EC tablet 02-09 15:05: 01 Yes 40mg Take 40 mg by mouth daily. [facility] ondansetron (ZOFRAN) 4 mg tablet 02-09 15:05: 01 Yes 4mg Take 4 mg by mouth every 8 (eight) hours as needed. [facility] pantoprazol e (PROTONIX) 40 mg EC tablet 02-09 15:05: 01 Yes 40mg Take 40 mg by mouth daily. [facility] ondansetron (ZOFRAN) 4 mg tablet 02-09 15:05: 01 Yes 4mg Take 4 mg by mouth every 8 (eight) hours as needed. [facility] pantoprazol e (PROTONIX) 40 mg EC tablet 02-09 15:05: 01 Yes 40mg Take 40 mg by mouth daily. [facility] ondansetron (ZOFRAN) 4 mg tablet 02-09 15:05: 01 Yes 4mg Take 4 mg by mouth every 8 (eight) hours as needed. [facility] pantoprazol e (PROTONIX) 40 mg EC tablet 02-09 15:05: 01 Yes 40mg Take 40 mg by mouth daily. [facility] lisinopril- hydrochloro thiazide 20-12.5 mg per tablet 02-09 15:03: 30 Yes 1{tbl} Take 1 tablet by mouth daily. [facility] lisinopril- hydrochloro thiazide 20-12.5 mg per tablet 02-09 15:03: 30 Yes 1{tbl} Take 1 tablet by mouth daily. [facility] lisinopril- hydrochloro thiazide 20-12.5 mg per tablet 02-09 15:03: 30 Yes 1{tbl} Take 1 tablet by mouth daily. [facility] lisinopril- hydrochloro thiazide 20-12.5 mg per tablet 02-09 15:03: 30 Yes 1{tbl} Take 1 tablet by mouth daily. [facility] lisinopril- hydrochloro thiazide 20-12.5 mg per tablet 02-09 15:03: 30 Yes 1{tbl} Take 1 tablet by mouth daily. [facility] omega-3 fatty acids-vitam in E (FISH OIL) 1,000 mg capsule 02-09 14:59: 52 Yes 1g Take 1 g by mouth daily. [facility] omega-3 fatty acids-vitam in E (FISH OIL) 1,000 mg capsule 02-09 14:59: 52 Yes 1g Take 1 g by mouth daily. [facility] omega-3 fatty acids-vitam in E (FISH OIL) 1,000 mg capsule 02-09 14:59: 52 Yes 1g Take 1 g by mouth daily. [facility] omega-3 fatty acids-vitam in E (FISH OIL) 1,000 mg capsule 02-09 14:59: 52 Yes 1g Take 1 g by mouth daily. [facility] omega-3 fatty acids-vitam in E (FISH OIL) 1,000 mg capsule 02-09 14:59: 52 Yes 1g Take 1 g by mouth daily. [facility] MULTIVITAMI N ORAL 02-09 14:58: 14 Yes 1{tbl} Take 1 Tab by mouth daily. [facility] loratadine (CLARITIN LIQUI-GEL) 10 mg capsule 02-09 14:58: 14 Yes Take by mouth daily. [facility] MULTIVITAMI N ORAL 02-09 14:58: 14 Yes 1{tbl} Take 1 Tab by mouth daily. [facility] loratadine (CLARITIN LIQUI-GEL) 10 mg capsule 02-09 14:58: 14 Yes Take by mouth daily. [facility] MULTIVITAMI N ORAL 02-09 14:58: 14 Yes 1{tbl} Take 1 Tab by mouth daily. [facility] loratadine (CLARITIN LIQUI-GEL) 10 mg capsule 02-09 14:58: 14 Yes Take by mouth daily. [facility] MULTIVITAMI N ORAL 02-09 14:58: 14 Yes 1{tbl} Take 1 Tab by mouth daily. [facility] loratadine (CLARITIN LIQUI-GEL) 10 mg capsule 02-09 14:58: 14 Yes Take by mouth daily. [facility] MULTIVITAMI N ORAL 02-09 14:58: 14 Yes 1{tbl} Take 1 Tab by mouth daily. [facility] loratadine (CLARITIN LIQUI-GEL) 10 mg capsule 02-09 14:58: 14 Yes Take by mouth daily. [facility] proMETHazin e (PHENERGAN) 25 mg tablet 11-20 00:00: 00 Yes 25mg Take 1 tablet by mouth every 6 (six) hours as needed for Nausea and Vomiting (N/V). [facility] proMETHazin e (PHENERGAN) 25 mg tablet 11-20 00:00: 00 02-19 00:00 :00 No 25mg Take 1 tablet by mouth every 6 (six) hours as needed for Nausea and Vomiting (N/V). [facility] carvedilol (COREG) 6.25 mg tablet 09-19 00:00: 00 Yes 6.25mg Take 1 Tab by mouth 2 (two) times daily with meals. [facility] amLODIPine (NORVASC) 10 mg tablet 09-19 00:00: 00 Yes 10mg Take 1 Tab by mouth daily. [facility] lisinopril (PRINIVIL,Z ESTRIL) 40 mg tablet 09-19 00:00: 00 Yes 40mg Take 1 Tab by mouth daily. [facility] carvedilol (COREG) 6.25 mg tablet 09-19 00:00: 00 Yes 6.25mg Take 1 Tab by mouth 2 (two) times daily with meals. [facility] amLODIPine (NORVASC) 10 mg tablet 09-19 00:00: 00 Yes 10mg Take 1 Tab by mouth daily. [facility] lisinopril (PRINIVIL,Z ESTRIL) 40 mg tablet 09-19 00:00: 00 Yes 40mg Take 1 Tab by mouth daily. [facility] carvedilol (COREG) 6.25 mg tablet 09-19 00:00: 00 Yes 6.25mg Take 1 Tab by mouth 2 (two) times daily with meals. [facility] amLODIPine (NORVASC) 10 mg tablet 09-19 00:00: 00 Yes 10mg Take 1 Tab by mouth daily. [facility] lisinopril (PRINIVIL,Z ESTRIL) 40 mg tablet 09-19 00:00: 00 Yes 40mg Take 1 Tab by mouth daily. [facility] carvedilol (COREG) 6.25 mg tablet 09-19 00:00: 00 Yes 6.25mg Take 1 Tab by mouth 2 (two) times daily with meals. [facility] amLODIPine (NORVASC) 10 mg tablet 09-19 00:00: 00 Yes 10mg Take 1 Tab by mouth daily. [facility] lisinopril (PRINIVIL,Z ESTRIL) 40 mg tablet 09-19 00:00: 00 Yes 40mg Take 1 Tab by mouth daily. [facility] carvedilol (COREG) 6.25 mg tablet 09-19 00:00: 00 Yes 6.25mg Take 1 Tab by mouth 2 (two) times daily with meals. [facility] amLODIPine (NORVASC) 10 mg tablet 09-19 00:00: 00 Yes 10mg Take 1 Tab by mouth daily. [facility] lisinopril (PRINIVIL,Z ESTRIL) 40 mg tablet 09-19 00:00: 00 Yes 40mg Take 1 Tab by mouth daily. [facility] carvedilol (COREG) 6.25 mg tablet 09-19 00:00: 00 Yes 6.25mg Take 1 Tab by mouth 2 (two) times daily with meals. [facility] amLODIPine (NORVASC) 10 mg tablet 09-19 00:00: 00 Yes 10mg Take 1 Tab by mouth daily. [facility] lisinopril (PRINIVIL,Z ESTRIL) 40 mg tablet 09-19 00:00: 00 Yes 40mg Take 1 Tab by mouth daily. [facility] carvedilol (COREG) 6.25 mg tablet 09-19 00:00: 00 Yes 6.25mg Take 1 Tab by mouth 2 (two) times daily with meals. [facility] amLODIPine (NORVASC) 10 mg tablet 09-19 00:00: 00 Yes 10mg Take 1 Tab by mouth daily. [facility] lisinopril (PRINIVIL,Z ESTRIL) 40 mg tablet 09-19 00:00: 00 Yes 40mg Take 1 Tab by mouth daily. [facility] carvedilol (COREG) 6.25 mg tablet 09-19 00:00: 00 Yes 6.25mg Take 1 Tab by mouth 2 (two) times daily with meals. [facility] amLODIPine (NORVASC) 10 mg tablet 09-19 00:00: 00 Yes 10mg Take 1 Tab by mouth daily. [facility] lisinopril (PRINIVIL,Z ESTRIL) 40 mg tablet 09-19 00:00: 00 Yes 40mg Take 1 Tab by mouth daily. [facility] carvedilol (COREG) 6.25 mg tablet 09-19 00:00: 00 Yes 6.25mg Take 1 Tab by mouth 2 (two) times daily with meals. [facility] amLODIPine (NORVASC) 10 mg tablet 09-19 00:00: 00 Yes 10mg Take 1 Tab by mouth daily. [facility] lisinopril (PRINIVIL,Z ESTRIL) 40 mg tablet 09-19 00:00: 00 Yes 40mg Take 1 Tab by mouth daily. [facility] carvedilol (COREG) 6.25 mg tablet 09-19 00:00: 00 Yes 6.25mg Take 1 Tab by mouth 2 (two) times daily with meals. [facility] amLODIPine (NORVASC) 10 mg tablet 09-19 00:00: 00 Yes 10mg Take 1 Tab by mouth daily. [facility] lisinopril (PRINIVIL,Z ESTRIL) 40 mg tablet 09-19 00:00: 00 Yes 40mg Take 1 Tab by mouth daily. [facility] carvedilol (COREG) 6.25 mg tablet 09-19 00:00: 00 Yes 6.25mg Take 1 Tab by mouth 2 (two) times daily with meals. [facility] amLODIPine (NORVASC) 10 mg tablet 09-19 00:00: 00 Yes 10mg Take 1 Tab by mouth daily. [facility] lisinopril (PRINIVIL,Z ESTRIL) 40 mg tablet 09-19 00:00: 00 Yes 40mg Take 1 Tab by mouth daily. [facility] carvedilol (COREG) 6.25 mg tablet 09-19 00:00: 00 Yes 6.25mg Take 1 Tab by mouth 2 (two) times daily with meals. [facility] amLODIPine (NORVASC) 10 mg tablet 09-19 00:00: 00 Yes 10mg Take 1 Tab by mouth daily. [facility] lisinopril (PRINIVIL,Z ESTRIL) 40 mg tablet 09-19 00:00: 00 Yes 40mg Take 1 Tab by mouth daily. [facility] carvedilol (COREG) 6.25 mg tablet 09-19 00:00: 00 Yes 6.25mg Take 1 Tab by mouth 2 (two) times daily with meals. [facility] amLODIPine (NORVASC) 10 mg tablet 09-19 00:00: 00 Yes 10mg Take 1 Tab by mouth daily. [facility] lisinopril (PRINIVIL,Z ESTRIL) 40 mg tablet 09-19 00:00: 00 Yes 40mg Take 1 Tab by mouth daily. [facility] carvedilol (COREG) 6.25 mg tablet 09-19 00:00: 00 Yes 6.25mg Take 1 Tab by mouth 2 (two) times daily with meals. [facility] amLODIPine (NORVASC) 10 mg tablet 09-19 00:00: 00 Yes 10mg Take 1 Tab by mouth daily. [facility] lisinopril (PRINIVIL,Z ESTRIL) 40 mg tablet 09-19 00:00: 00 Yes 40mg Take 1 Tab by mouth daily. [facility] carvedilol (COREG) 6.25 mg tablet 09-19 00:00: 00 Yes 6.25mg Take 1 Tab by mouth 2 (two) times daily with meals. [facility] amLODIPine (NORVASC) 10 mg tablet 09-19 00:00: 00 Yes 10mg Take 1 Tab by mouth daily. [facility] lisinopril (PRINIVIL,Z ESTRIL) 40 mg tablet 09-19 00:00: 00 Yes 40mg Take 1 Tab by mouth daily. [facility] carvedilol (COREG) 6.25 mg tablet 09-19 00:00: 00 Yes 6.25mg Take 1 Tab by mouth 2 (two) times daily with meals. [facility] amLODIPine (NORVASC) 10 mg tablet 09-19 00:00: 00 Yes 10mg Take 1 Tab by mouth daily. [facility] lisinopril (PRINIVIL,Z ESTRIL) 40 mg tablet 09-19 00:00: 00 Yes 40mg Take 1 Tab by mouth daily. [facility] carvedilol (COREG) 6.25 mg tablet 09-19 00:00: 00 Yes 6.25mg Take 1 Tab by mouth 2 (two) times daily with meals. [facility] amLODIPine (NORVASC) 10 mg tablet 09-19 00:00: 00 Yes 10mg Take 1 Tab by mouth daily. [facility] lisinopril (PRINIVIL,Z ESTRIL) 40 mg tablet 09-19 00:00: 00 Yes 40mg Take 1 Tab by mouth daily. [facility] carvedilol (COREG) 6.25 mg tablet 09-19 00:00: 00 Yes 6.25mg Take 1 Tab by mouth 2 (two) times daily with meals. [facility] amLODIPine (NORVASC) 10 mg tablet 09-19 00:00: 00 Yes 10mg Take 1 Tab by mouth daily. [facility] lisinopril (PRINIVIL,Z ESTRIL) 40 mg tablet 09-19 00:00: 00 Yes 40mg Take 1 Tab by mouth daily. [facility] carvedilol (COREG) 6.25 mg tablet 09-19 00:00: 00 Yes 6.25mg Take 1 Tab by mouth 2 (two) times daily with meals. [facility] amLODIPine (NORVASC) 10 mg tablet 09-19 00:00: 00 Yes 10mg Take 1 Tab by mouth daily. [facility] lisinopril (PRINIVIL,Z ESTRIL) 40 mg tablet 09-19 00:00: 00 Yes 40mg Take 1 Tab by mouth daily. [facility] carvedilol (COREG) 6.25 mg tablet 09-19 00:00: 00 Yes 6.25mg Take 1 Tab by mouth 2 (two) times daily with meals. [facility] amLODIPine (NORVASC) 10 mg tablet 09-19 00:00: 00 Yes 10mg Take 1 Tab by mouth daily. [facility] lisinopril (PRINIVIL,Z ESTRIL) 40 mg tablet 09-19 00:00: 00 Yes 40mg Take 1 Tab by mouth daily. [facility] carvedilol (COREG) 6.25 mg tablet 09-19 00:00: 00 Yes 6.25mg Take 1 Tab by mouth 2 (two) times daily with meals. [facility] amLODIPine (NORVASC) 10 mg tablet 09-19 00:00: 00 Yes 10mg Take 1 Tab by mouth daily. [facility] lisinopril (PRINIVIL,Z ESTRIL) 40 mg tablet 03 00:00: 00 Yes 40mg Take 1 Tab by mouth daily. [facility] Immunizations Ordered Immunization Name Filled Immunization Name Date Status Comments Source SARS-COV-2 COVID-19 PFIZER BA-SUCROSE VACCINE (ROSE TOP) 2022-02-19 00:00:00 Completed [facility] SARS-COV-2 COVID-19 PFIZER BA-SUCROSE VACCINE (ROSE TOP) 2022-02-19 00:00:00 Completed [facility] SARS-COV-2 COVID-19 PFIZER BA-SUCROSE VACCINE (ROSE TOP) 2022-02-19 00:00:00 Completed [facility] SARS-COV-2 COVID-19 PFIZER BA-SUCROSE VACCINE (ROSE TOP) 2022-02-19 00:00:00 Completed [facility] SARS-COV-2 COVID-19 PFIZER BA-SUCROSE VACCINE (ROSE TOP) 2022-02-19 00:00:00 Completed [facility] SARS-COV-2 COVID-19 PFIZER BA-SUCROSE VACCINE (ROSE TOP) 2022-02-19 00:00:00 Completed [facility] SARS-COV-2 COVID-19 PFIZER BA-SUCROSE VACCINE (ROSE TOP) 2022-02-19 00:00:00 Completed [facility] SARS-COV-2 COVID-19 PFIZER BA-SUCROSE VACCINE (ROSE TOP) 2022-02-19 00:00:00 Completed [facility] SARS-COV-2 COVID-19 PFIZER BA-SUCROSE VACCINE (ROSE TOP) 2022-02-19 00:00:00 Completed [facility] SARS-COV-2 COVID-19 PFIZER VACCINE 2021-05-24 00:00:00 Completed [facility] SARS-COV-2 COVID-19 PFIZER VACCINE 2021-05-24 00:00:00 Completed [facility] SARS-COV-2 COVID-19 PFIZER VACCINE 2021-05-24 00:00:00 Completed [facility] SARS-COV-2 COVID-19 PFIZER VACCINE 2021-05-24 00:00:00 Completed [facility] SARS-COV-2 COVID-19 PFIZER VACCINE 2021-05-24 00:00:00 Completed [facility] SARS-COV-2 COVID-19 PFIZER VACCINE 2021-05-24 00:00:00 Completed [facility] SARS-COV-2 COVID-19 PFIZER VACCINE 2021-05-24 00:00:00 Completed [facility] SARS-COV-2 COVID-19 PFIZER VACCINE 2021-05-24 00:00:00 Completed [facility] SARS-COV-2 COVID-19 PFIZER VACCINE 2021-05-24 00:00:00 Completed [facility] SARS-COV-2 COVID-19 PFIZER VACCINE 2021-05-24 00:00:00 Completed [facility] SARS-COV-2 COVID-19 PFIZER VACCINE 2021-05-24 00:00:00 Completed [facility] SARS-COV-2 COVID-19 PFIZER VACCINE 2021-05-03 00:00:00 Completed [facility] SARS-COV-2 COVID-19 PFIZER VACCINE 2021-05-03 00:00:00 Completed [facility] SARS-COV-2 COVID-19 PFIZER VACCINE 2021-05-03 00:00:00 Completed [facility] SARS-COV-2 COVID-19 PFIZER VACCINE 2021-05-03 00:00:00 Completed [facility] SARS-COV-2 COVID-19 PFIZER VACCINE 2021-05-03 00:00:00 Completed [facility] SARS-COV-2 COVID-19 PFIZER VACCINE 2021-05-03 00:00:00 Completed [facility] SARS-COV-2 COVID-19 PFIZER VACCINE 2021-05-03 00:00:00 Completed [facility] SARS-COV-2 COVID-19 PFIZER VACCINE 2021-05-03 00:00:00 Completed [facility] SARS-COV-2 COVID-19 PFIZER VACCINE 2021-05-03 00:00:00 Completed [facility] SARS-COV-2 COVID-19 PFIZER VACCINE 2021-05-03 00:00:00 Completed [facility] SARS-COV-2 COVID-19 PFIZER VACCINE 2021-05-03 00:00:00 Completed [facility] SARS-COV-2 COVID-19 PFIZER VACCINE 2021-05-03 00:00:00 Completed [facility] SARS-COV-2 COVID-19 PFIZER VACCINE Unknown Completed [facility] SARS-COV-2 COVID-19 PFIZER VACCINE Unknown Completed [facility] SARS-COV-2 COVID-19 PFIZER BA-SUCROSE VACCINE (ROSE TOP) Unknown Completed [facility] Vital Signs Vital Name Observation Time Observation Value Comments S ource Systolic blood pressure 2023-09-11 17:27:00 122 mm[Hg] Cynthia Seybo ld - External Diastolic blood pressure 2023-09-11 17:27:00 74 mm[Hg] Cynthia ybo ld - External Heart rate 2023-09-11 17:27:00 80 /min Kimani y Seybold - External Body temperature 2023-09-11 17:27:00 36.72 Radha Cynthia Seybold - External Respiratory rate 2023-09-11 17:27:00 18 /min Cynthia Macdonaldybold - External Body height 2023-09-11 17:27:00 159.4 cm Esthela shoemaker Seybold - External Body weight 2023-09-11 17:27:00 80.74 kg Esthela ey Seybold - External BMI 2023-09-11 17:27:00 31.78 kg/m2 Esthela ey Seybold - External Oxygen saturation in Arterial blood by Pulse oximetry 2023-09-11 17:27:00 97 /min Cynthia Bedoyao ld - External Respiratory rate 2023-08-12 21:00:00 14 /min [facility] Oxygen saturation in Arterial blood by Pulse oximetry 2023-08-12 21:00:00 95 /min [facility] Systolic blood pressure 2023-08-12 21:00:00 130 mm[Hg] [facility] Diastolic blood pressure 2023-08-12 21:00:00 85 mm[Hg] [facility] Heart rate 2023-08-12 21:00:00 106 /min [facility] Body temperature 2023-08-12 20:34:54 37.22 Radha [facility] Body height 2023-08-12 19:47:00 157.5 cm [facility] Body weight 2023-08-12 19:47:00 81.647 kg [facility] BMI 2023-08-12 19:47:00 32.92 kg/m2 [facility] 2023-06-16 05:26:00 86.047 kg HEIGHT 2023-06-13 [...] Systolic blood pressure 2022-12-11 20:00:00 142 mm[Hg] [facility] Diastolic blood pressure 2022-12-11 20:00:00 90 mm[Hg] [facility] Respiratory rate 2022-12-11 20:00:00 24 /min [facility] Heart rate 2022-12-11 18:00:00 101 /min [facility] Oxygen saturation in Arterial blood by Pulse oximetry 2022-12-11 18:00:00 93 /min [facility] BMI 2022-12-11 13:55:00 35[facility]43 [facility] 2022-12-11 13:55:00 37.22 Radha [facility] Body weight 2022-12-11 13:55:00 90.719 kg [facility] Systolic blood pressure 2022-11-18 05:34:00 152 mm[Hg] [facility] Diastolic blood pressure 2022-11-18 05:34:00 98 mm[Hg] [facility] Heart rate 2022-11-18 05:34:00 88 /min [facility] Respiratory rate 2022-11-18 05:34:00 18 /min [facility] Oxygen saturation in Arterial blood by Pulse oximetry 2022-11-18 05:34:00 97 /min [facility] Body temperature 2022-11-17 22:28:00 37.06 Radha [facility] Body height 2022-11-17 22:28:00 160 cm [facility] Body weight 2022-11-17 22:28:00 99.791 kg [facility] BMI 2022-11-17 22:28:00 38.97 kg/m2 [facility] Heart rate 2022-08-02 02:02:00 108 /min [facility] Respiratory rate 2022-08-02 02:02:00 28 /min [facility] Oxygen saturation in Arterial blood by Pulse oximetry 2022-08-02 02:02:00 97 /min [facility] Body temperature 2022-08-02 01:00:00 36.44 Radha [facility] Systolic blood pressure 2022-08-01 23:29:00 145 mm[Hg] [facility] Diastolic blood pressure 2022-08-01 23:29:00 103 mm[Hg] [facility] Body weight 2022-08-01 09:16:00 97.977 kg [facility] BMI 2022-08-01 09:16:00 38.26 kg/m2 [facility] Body height 2022-07-31 21:54:00 160 cm [facility] Systolic blood pressure 2022-05-08 16:40:00 146 mm[Hg] [facility] Diastolic blood pressure 2022-05-08 16:40:00 96 mm[Hg] [facility] Heart rate 2022-05-08 16:40:00 112 /min [facility] Body temperature 2022-05-08 16:40:00 36.78 Radha [facility] Respiratory rate 2022-05-08 16:40:00 18 /min [facility] Oxygen saturation in Arterial blood by Pulse oximetry 2022-05-08 16:40:00 94 /min [facility] Body height 2022-05-05 23:44:00 160 cm [facility] Body weight 2022-05-05 23:37:00 81.647 kg [facility] BMI 2022-05-05 23:37:00 31.89 kg/m2 [facility] Systolic blood pressure 2022-04-15 18:52:00 104 mm[Hg] [facility] Diastolic blood pressure 2022-04-15 18:52:00 82 mm[Hg] [facility] Heart rate 2022-04-15 18:52:00 114 /min [facility] Oxygen saturation in Arterial blood by Pulse oximetry 2022-04-15 18:52:00 98 /min [facility] Body temperature 2022-04-15 16:14:00 36.28 Radha [facility] Respiratory rate 2022-04-15 16:14:00 17 /min [facility] Body height 2022-04-13 21:08:00 160 cm [facility] Body weight 2022-04-13 21:08:00 91.173 kg [facility] BMI 2022-04-13 21:08:00 35.61 kg/m2 [facility] Systolic blood pressure 2021-11-23 21:30:00 132 mm[Hg] [facility] Diastolic blood pressure 2021-11-23 21:30:00 76 mm[Hg] [facility] Heart rate 2021-11-23 21:30:00 95 /min [facility] Respiratory rate 2021-11-23 21:30:00 13 /min [facility] Oxygen saturation in Arterial blood by Pulse oximetry 2021-11-23 21:30:00 97 /min [facility] Body temperature 2021-11-23 20:15:00 37.56 Radha [facility] Systolic blood pressure 2021-03-17 03:00:00 117 mm[Hg] [facility] Diastolic blood pressure 2021-03-17 03:00:00 76 mm[Hg] [facility] Heart rate 2021-03-17 03:00:00 104 /min [facility] Respiratory rate 2021-03-17 03:00:00 28 /min [facility] Oxygen saturation in Arterial blood by Pulse oximetry 2021-03-17 03:00:00 96 /min [facility] Body temperature 2021-03-17 00:39:00 37.11 Radha [facility] Body height 2021-03-17 00:39:00 160 cm [facility] Body weight 2021-03-17 00:39:00 58.968 kg [facility] BMI 2021-03-17 00:39:00 23.03 kg/m2 [facility] Systolic blood pressure 2021-03-15 00:14:00 149 mm[Hg] [facility] Diastolic blood pressure 2021-03-15 00:14:00 78 mm[Hg] [facility] Heart rate 2021-03-15 00:14:00 100 /min [facility] Body temperature 2021-03-15 00:14:00 37.33 Radha [facility] Respiratory rate 2021-03-15 00:14:00 24 /min [facility] Body height 2021-03-15 00:14:00 160 cm [facility] Body weight 2021-03-15 00:14:00 58.968 kg [facility] BMI 2021-03-15 00:14:00 23.03 kg/m2 [facility] Oxygen saturation in Arterial blood by Pulse oximetry 2021-03-15 00:14:00 98 /min [facility] Systolic blood pressure 2021-02-19 18:00:00 131 mm[Hg] [facility] Diastolic blood pressure 2021-02-19 18:00:00 80 mm[Hg] [facility] Heart rate 2021-02-19 18:00:00 83 /min [facility] Respiratory rate 2021-02-19 18:00:00 18 /min [facility] Oxygen saturation in Arterial blood by Pulse oximetry 2021-02-19 18:00:00 100 /min [facility] Body temperature 2021-02-19 15:47:00 37 Radha [facility] Body height 2021-02-19 15:47:00 160 cm [facility] Body weight 2021-02-19 15:47:00 58.968 kg [facility] BMI 2021-02-19 15:47:00 23.03 kg/m2 [facility] Heart rate 2023-09-08 08:54:00 118 /min [facility] Respiratory rate 2023-09-08 08:54:00 21 /min [facility] Oxygen saturation in Arterial blood by Pulse oximetry 2023-09-08 08:54:00 100 /min [facility] Systolic blood pressure 2023-09-08 08:32:00 110 mm[Hg] [facility] Diastolic blood pressure 2023-09-08 08:32:00 77 mm[Hg] [facility] Body temperature 2023-09-08 08:32:00 36.06 Radha [facility] Body height 2023-09-04 00:58:00 157.5 cm [facility] Body weight 2023-09-04 00:58:00 80 kg [facility] BMI 2023-09-04 00:58:00 32.26 kg/m2 [facility] Heart rate 2023-06-16 17:00:00 108 /min [facility] Systolic blood pressure 2023-06-16 15:31:00 101 mm[Hg] [facility] Diastolic blood pressure 2023-06-16 15:31:00 81 mm[Hg] [facility] Body temperature 2023-06-16 15:31:00 36.61 Radha [facility] Respiratory rate 2023-06-16 15:31:00 18 /min [facility] Oxygen saturation in Arterial blood by Pulse oximetry 2023-06-16 15:31:00 94 /min [facility] Body weight 2023-06-16 05:26:00 86.047 kg [facility] BMI 2023-06-16 05:26:00 33.60 kg/m2 [facility] Body height 2023-06-13 04:00:00 160 cm [facility] Systolic blood pressure 2023-06-04 13:02:00 93 mm[Hg] [facility] Diastolic blood pressure 2023-06-04 13:02:00 57 mm[Hg] [facility] Heart rate 2023-06-04 13:02:00 101 /min [facility] Respiratory rate 2023-06-04 13:02:00 22 /min [facility] Oxygen saturation in Arterial blood by Pulse oximetry 2023-06-04 13:02:00 95 /min room air [facility] Body temperature 2023-06-04 11:46:00 35.28 Radha [facility] Systolic blood pressure 2023-05-28 16:00:00 154 mm[Hg] [facility] Diastolic blood pressure 2023-05-28 16:00:00 82 mm[Hg] [facility] Heart rate 2023-05-28 16:00:00 89 /min [facility] Body temperature 2023-05-28 16:00:00 36.67 Radha [facility] Respiratory rate 2023-05-28 16:00:00 16 /min [facility] Oxygen saturation in Arterial blood by Pulse oximetry 2023-05-28 16:00:00 97 /min [facility] Body height 2023-05-28 07:00:00 157.5 cm [facility] Body weight 2023-05-28 07:00:00 87.544 kg [facility] BMI 2023-05-28 07:00:00 35.30 kg/m2 [facility] Body height 2023-05-26 09:12:00 157.5 cm [facility] Body weight 2023-05-26 09:12:00 87.091 kg [facility] BMI 2023-05-26 09:12:00 35.12 kg/m2 [facility] Respiratory rate 2023-04-02 16:35:00 18 /min [facility] Oxygen saturation in Arterial blood by Pulse oximetry 2023-04-02 16:35:00 98 /min [facility] Systolic blood pressure 2023-04-02 12:00:00 147 mm[Hg] [facility] Diastolic blood pressure 2023-04-02 12:00:00 97 mm[Hg] [facility] Heart rate 2023-04-02 12:00:00 106 /min [facility] Body temperature 2023-04-02 12:00:00 36.28 Radha [facility] Body height 2023-03-30 02:14:00 157.5 cm [facility] Body weight 2023-03-30 02:14:00 92.08 kg [facility] BMI 2023-03-30 02:14:00 37.13 kg/m2 [facility] Respiratory rate 2022-08-03 14:40:00 18 /min [facility] Systolic blood pressure 2022-08-03 12:13:00 112 mm[Hg] [facility] Diastolic blood pressure 2022-08-03 12:13:00 77 mm[Hg] [facility] Heart rate 2022-08-03 12:13:00 115 /min [facility] Oxygen saturation in Arterial blood by Pulse oximetry 2022-08-03 12:13:00 93 /min [facility] Body temperature 2022-08-03 12:00:00 36.83 Radha [facility] Body height 2022-08-02 21:52:00 160.2 cm [facility] Body weight 2022-08-02 21:52:00 95 kg [facility] BMI 2022-08-02 21:52:00 37.02 kg/m2 [facility] BP Systolic 2022-07-24 13:31:00 136 mm[Hg] [...] Clinician Source POCT-GLUCOSE METER 2023-09-08 08:40:00 Bud [facility] CBC W/PLT COUNT & AUTO DIFFERENTIAL 2023-09-08 04:16:00 Joshua [facility] BASIC METABOLIC PANEL 2023-09-08 04:16:00 Joshua [facility] MAGNESIUM 2023-09-08 04:16:00 Joshua [facility] PHOSPHORUS 2023-09-08 04:16:00 Joshua [facility] CBC W/PLT COUNT & AUTO DIFFERENTIAL 2023-09-08 04:16:00 Joshua [facility] POCT-GLUCOSE METER 2023-09-07 21:29:00 Bud [facility] XR KNEE 3 VIEWS LEFT 2023-09-07 19:21[facility] DOPPLER LEGS BILATERAL 2023-09-07 12:45:00 Joshua [facility] CBC W/PLT COUNT & AUTO DIFFERENTIAL 2023-09-07 03:17:00 Joshua [facility] BASIC METABOLIC PANEL 2023-09-07 03:17:00 Joshua [facility] MAGNESIUM 2023-09-07 03:17:00 Joshua [facility] PHOSPHORUS 2023-09-07 03:17:00 Joshua [facility] CBC W/PLT COUNT & AUTO DIFFERENTIAL 2023-09-07 03:17:00 Joshua [facility] POCT-GLUCOSE METER 2023-09-06 21:17:00 Bud [facility] POCT-GLUCOSE METER 2023-09-06 18:37:00 Bud [facility] POCT-GLUCOSE METER 2023-09-06 13:16:00 Farrell [facility] POCT-GLUCOSE METER 2023-09-06 08:21:00 Bud [facility] CBC W/PLT COUNT & AUTO DIFFERENTIAL 2023-09-06 04:49:00 Joshua [facility] BASIC METABOLIC PANEL 2023-09-06 04:49:00 Joshua [facility] MAGNESIUM 2023-09-06 04:49:00 Joshua [facility] PHOSPHORUS 2023-09-06 04:49:00 Joshua [facility] CBC W/PLT COUNT & AUTO DIFFERENTIAL 2023-09-06 04:49:00 Joshua [facility] POCT-GLUCOSE METER 2023-09-05 21:24:00 Bud [facility] MR BRAIN WITH & WITHOUT IV CONTRAST 2023-09-05 11:25:07 Sandi Aleman [facility] POCT-GLUCOSE METER 2023-09-05 08:10:00 Bud [facility] CBC W/PLT COUNT & AUTO DIFFERENTIAL 2023-09-05 04:44:00 Joshua [facility] BASIC METABOLIC PANEL 2023-09-05 04:44:00 Joshua [facility] MAGNESIUM 2023-09-05 04:44:00 Joshua [facility] PHOSPHORUS 2023-09-05 04:44:00 Joshua [facility] POCT-GLUCOSE METER 2023-09-05 04:44:00 [facility] CBC W/PLT COUNT & AUTO DIFFERENTIAL 2023-09-05 04:44:00 Joshua [facility] POCT-GLUCOSE METER 2023-09-04 21:38:00 [facility] POCT-GLUCOSE METER 2023-09-04 15:42:00 [facility] SARS-COV2/INFLUENZA/RSV RT-PCR 2023-09-04 11:25:00 Uli, [facility] POCT-GLUCOSE METER 2023-09-04 10:53:00 Ra Sabashul [facility] POCT-GLUCOSE METER 2023-09-04 08:04:00 Sabas Pankaj [facility] PROCALCITONIN 2023-09-04 06:56:00 Uli [facility] IRON, TIBC, % SAT. (WITHOUT FERRITIN) 2023-09-04 06:56:00 Uli [facility] FERRITIN 2023-09-04 06:56:00 Uli [facility] BLOOD CULTURE 2023-09-04 06:37:00 [facility] MR LUMBAR SPINE WITHOUT IV CONTRAST 2023-09-04 05:47:25 Melvi [facility] MR THORACIC SPINE WITHOUT IV CONTRAST 2023-09-04 04:53:00 Melvi [facility] MR CERVICAL SPINE WITHOUT IV CONTRAST 2023-09-04 04:18:[address] Postsant[address] [facility] CT THORACIC SPINE WITHOUT IV CONTRAST 2023-09-04 03:08:[address] [facility] [address] LUMBAR SPINE WITHOUT IV CONTRAST 2023-09-04 03:08:00 [facility] LACTIC ACID, VENOUS 2023-09-04 01:42:00 [place] [facility] TYPE AND SCREEN, AUTOMATED 2023-09-04 01:42:00 Monroe [facility] CBC W/PLT COUNT & AUTO DIFFERENTIAL 2023-09-04 00:51:00 Melvi [facility] COMPREHENSIVE METABOLIC PANEL 2023-09-04 00:51:00 Melvi [facility] MAGNESIUM 2023-09-04 00:51:00 Melvi [facility] PHOSPHORUS 2023-09-04 00:51:00 Melvi [facility] PROTHROMBIN TIME/INR 2023-09-04 00:51:00 Melvi [facility] APTT 2023-09-04 00:51:00 Melvi [facility] B-TYPE NATRIURETIC FACTOR (BNP) 2023-09-04 00:51:00 Chico Ogden [facility] URINALYSIS WITHOUT MICROSCOPIC 2023-09-04 00:51:00 Chico Ogden [facility] RAPID DRUG SCREEN, URINE 2023-09-04 00:51:00 Melvi [facility] D-DIMER 2023-09-04 00:51:00 London Loyola [facility] FIBRINOGEN 2023-09-04 00:51:00 Jorge Pereira [facility] CBC W/PLT COUNT & AUTO DIFFERENTIAL 2023-09-04 00:51:00 Melvi [facility] EKG-SCANNED 2023-09-04 00:00:00 Provider, Default Scanning [facility] LACTIC ACID WHOLE BLOOD 2023-08-12 20:31:00 Brian Bryan [facility] COMP. METABOLIC PANEL (67957) 2023-08-12 20:29:00 Brian Bryan [facility] CBC WITH DIFF 2023-08-12 20:29:00 Brian Bryan [facility] CONSENT/REFUSAL FOR DIAGNOSI S AND TREATMENT 2023-08-12 19:43:16 Doctor Unassigned, Hector [facility] TRANSESOPHAGEAL ECHO 2023-06-16 11:05:00 Aydee Go [facility] T SPOT TB 2023-06-15 04:51[facility]-GLUCAN WITH REFLEX TO TITER 2023-06-15 04:51:00 [facility] ASPERGILLUS GALACTOMANNAN ANTIGEN 2023-06-15 04:51:00 Rossy [facility] VANCOMYCIN LEVEL, TROUGH 2023-06-15 04:51:00 Kaylene Mendosa [facility] T-SPOT(R).TB (QUEST) 2023-06-15 04:27:00 System, Provider Not In [facility] T-SPOT(R).TB (QUEST) 2023-06-15 04:27:00 System, Provider Not In [facility] ECHO W CONTRAST & DOPPLER 2023-06-14 09:22:00 [facility] HEMOGLOBIN A1C 2023-06-14 04:08:00 Cara Burgess [facility] CBC (HEMOGRAM ONLY) 2023-06-14 04:08:00 [facility] BASIC METABOLIC PANEL 2023-06-14 04:08:00 [facility] CRYPTOCOCCAL ANTIGEN 2023-06-13 17:21:00 Rossy tucker Garcia [facility] HC LAB HIV-1 AG W/HIV-1&2 AB 2023-06-13 17:21:00 Lauren Blair [facility] VENOUS DOPPLER ARM, LEFT 2023-06-13 17:20:00 Cara Burgess [facility] LEGIONELLA ANTIGEN, URINE 2023-06-13 17:00:00 [facility] SPUTUM CULTURE + GRAM STAIN 2023-06-13 14:33:00 [facility] MR LUMBAR SPINE WITH & WITHOUT IV CONTRAST 2023-06-13 13:03:47 Burt Nelson [facility] ECG 12-LEAD 2023-06-13 11:47:02 [facility] ECG 12-LEAD 2023-06-13 11:47:02 Unknown, Hl7 Doctor [facility] MRSA SCREEN 2023-06-13 09:19:00 [facility] CBC W/PLT COUNT & AUTO DIFFERENTIAL 2023-06-13 06:03:00 Cara Burgess [facility] COMPREHENSIVE METABOLIC PANEL 2023-06-13 06:03:00 Cara Burgess [facility] PROTHROMBIN TIME/INR 2023-06-13 06:03:00 Cara Burgess [facility] CREATINE KINASE (CK) 2023-06-13 06:03:00 Aydee Go [facility] CBC W/PLT COUNT & AUTO DIFFERENTIAL 2023-06-13 06:03:00 Cara Burgess [facility] BLOOD CULTURE 2023-06-13 06:02:00 Cara Burgess [facility] CBC W/PLT COUNT & AUTO DIFFERENTIAL 2023-06-02 04:41:00 Sunil Chu [facility] BASIC METABOLIC PANEL 2023-06-02 04:41:00 Sunil Chu [facility] MAGNESIUM 2023-06-02 04:41:00 Sunil Chu [facility] PHOSPHORUS 2023-06-02 04:41:00 Sunil Chu [facility] CBC W/PLT COUNT & AUTO DIFFERENTIAL 2023-06-02 04:41:00 Sunil Chu [facility] XR SPINE LUMBAR 1 VIEW 2023-06-01 10:31:00 Adam Garcia [facility] XR SPINE LUMBAR 1 VIEW 2023-06-01 09:46:00 JoseAdam [facility] LAMINECTOMY, SPINE, LUMBAR 2023-06-01 09:10:00 Adam Garcia [facility] PROCEDURE W/ C-ARM 2023-06-01 09:10:00 Adam Garcia [facility] LAMINECTOMY, SPINE, LUMBAR 2023-06-01 07:30:00 Adam Garcia [facility] PROCEDURE W/ C-ARM 2023-06-01 07:30:00 Adam Garcia [facility] SCREEN, URINE 2023-06-01 04:33:00 Adam Garcia [facility] BASIC METABOLIC PANEL 2023-05-31 22:55:00 Dallas Gomez [facility] CBC W/PLT COUNT & AUTO DIFFERENTIAL 2023-05-31 22:55:00 Gomez, Dallas [facility] PT/APTT 2023-05-31 22:55:00 Dallas Gomez [facility] CBC W/PLT COUNT & AUTO DIFFERENTIAL 2023-05-31 22:55:00 Dallas Gomez [facility] CT NECK SOFT TISSUE WITHOUT IV CONTRAST 2023-05-31 09:39:30 [facility] TYPE AND SCREEN, AUTOMATED 2023-05-31 09:13:00 [facility] BASIC METABOLIC PANEL 2023-05-29 06:43:00 [facility] CBC W/PLT COUNT & AUTO DIFFERENTIAL 2023-05-29 06:43:00 [facility] CBC W/PLT COUNT & AUTO DIFFERENTIAL 2023-05-29 06:43:00 [facility] XR SPINE CERVICAL 2 OR 3 VIEWS 2023-05-28 18:57:00 [facility] FL FLUORO NON-SPECIFIC UP TO 1 HOUR 2023-05-28 10:48:00 Jose Adam [facility] [place] FLUORO NON-SPECIFIC UP TO 1 HOUR 2023-05-28 10:07:00 [facility], [facility]INE, CERVICAL, ANTERIOR APPROACH, WITH FUSION 2023-05-28 08:15:00 Adam Garcia [facility] INSERTION, HARDWARE, SPINAL 2023-05-28 08:15:00 [facility] PROCEDURE, ALLOGRAFT, FOR SPINE SURGERY 2023-05-28 08:15:00 [facility] AUTOGRAFT FOR SPINE SURGERY 2023-05-28 08:15:00 Jose [facility] PROCEDURE W/ C-ARM 2023-05-28 08:15:00 [facility] NEUROPHYSIOLOGIC MONITORING, INTRAOPERATIVE 2023-05-28 08:15:00 [facility] PROCEDURE, USING OPERATING MICROSCOPE 2023-05-28 08:15:00 Adam Garcia [facility] HCG, QUANTITATIVE, 2023-05-28 07:42:00 Yue Bui [facility] TYPE AND SCREEN, AUTOMATED 2023-05-28 07:42:00 Ketan Scruggs [facility] XR CHEST 1 VIEW PORTABLE / BEDSIDE 2023-04-01 15:32:16 [facility] B-TYPE NATRIURETIC FACTOR (BNP) 2023-04-01 13:32:00 Thomas Lozoya [facility] ECHO W CONTRAST & DOPPLER 2023-03-31 20:18:37 Jasen [facility] MR CERVICAL SPINE WITHOUT IV CONTRAST 2023-03-31 09:25:00 Selin Lewis [facility] CBC (HEMOGRAM ONLY) 2023-03-31 03:45:00 Jasen [facility] COMPREHENSIVE METABOLIC PANEL 2023-03-31 03:45:00 Jasen [facility] ARTERIAL DOPPLER LEGS BILATERAL 2023-03-30 [facility]:45[facility] ARTERIAL (ALEISHA'S W/ DOPPLER) ONLY 2023-03-30 15:44:00 Jasen [facility] ECG 12-LEAD 2023-03-30 13:06:22 Jasen [facility] ECG 12-LEAD 2023-03-30 13:06:22 Unknown, Hl7 [facility] MR THORACIC SPINE WITHOUT IV CONTRAST 2023-03-30 12:29:58 [facility] MR LUMBAR SPINE WITHOUT IV CONTRAST 2023-03-30 11:58:00 [facility]OWSY 2023-03-30 09:57:53 Liudmila Smart [facility] VALPROIC ACID LEVEL, TOTAL 2023-03-30 09:06:00 Liudmila Smart [facility] URINALYSIS W/ REFLEX URINE CULTURE 2023-03-30 03:54:00 Gloria Reyes [facility] CBC (HEMOGRAM ONLY) 2023-03-30 03:52:00 Jasen Mariah [facility] COMPREHENSIVE METABOLIC PANEL 2023-03-30 03:52:00 Jasen [facility] HEMOGLOBIN A1C 2023-03-30 03:52:00 Jasen [facility] PT/APTT 2023-03-30 03:52:00 Thomas Lozoya [facility] EKG-SCANNED 2023-03-29 00:00:00 Provider, Default Scanning [facility] CT HEAD WO CONTRAST 2022-12-11 18:36:49 Alfonso Alvarado [facility] URINE DRUG (IMMUNOASSAY) - COMPREHENSIVE DRUG SCREEN 2022-12-11 17:13:00 Alfonso Alvarado Lorelei [facility] URINALYSIS 2022-12-11 17:13:00 Alfonso Alvarado [facility] CT CHEST PULMONARY ANGIOGRAM 2022-12-11 16:26:39 Alfonso Alvarado [facility] MAGNESIUM 2022-12-11 14:57:00 Alfonso Alvarado Lorelei [facility] COMP. METABOLIC PANEL ([id number]) 2022-12-11 14:57:00 Alfonso Alvarado Lorelei [facility] D-DIMER 2022-12-11 14:15:00 Alfonso Alvarado [facility] XR CHEST 1 VW 2022-12-11 14:10:26 Alfonso Alvarado Lorelei [facility] TROPONIN I 2022-12-11 14:02:00 Alfonso Alvarado Lorelei [facility] CBC WITH DIFF 2022-12-11 14:02:00 Alfonso Alvarado Lorelei [facility] N-TERMINAL PRO-BNP 2022-12-11 14:02:00 Alfonso Alvarado Lorelei [facility] HB ECG ROUTINE & RHYTHM STRIP 2022-12-11 14:01:08 Alfonso Alvarado [facility] CONSENT/REFUSAL FOR DIAGNOSI S AND TREATMENT 2022-12-11 13:52:01 Doctor Unassigned, Hector [facility] ECG 12-LEAD 2022-08-03 05:03:32 Unknown, Hl7 Doctor [facility] ECG 12-LEAD 2022-08-03 05:03:32 Unknown, Hl7 [facility] LIPID PANEL 2022-08-02 21:14:00 [facility] TSH/FREE T4 IF INDICATED 2022-08-02 21:14:00 [facility] VITAMIN B12 2022-08-02 21:14:00 [facility] HEMOGLOBIN A1C 2022-08-02 21:14:00 [facility] COMPREHENSIVE METABOLIC PANEL 2022-08-02 21:14:00 [facility] CBC W/PLT COUNT & AUTO DIFFERENTIAL 2022-08-02 21:14:00 [facility] RPR 2022-08-02 21:14:00 [facility] HC LAB HIV-1 AG W/HIV-1&2 AB 2022-08-02 21:14:00 [facility] C-REACTIVE PROTEIN 2022-08-02 21:14:00 [facility] CBC W/PLT COUNT & AUTO DIFFERENTIAL 2022-08-02 21:14:00 [facility] EKG-SCANNED 2022-08-02 00:00:00 Provider, Default Scanning [facility] CT HEAD WO CONTRAST 2022-08-01 23:52:15 Lorenza Lowry [facility] GALV ONLY - INFLUENZA A B RS V PCR 2022-08-01 18:28:00 Letitia Chambers [facility] TRANSTHORACIC ECHO (TTE) COMPLETE W/ CONTRAST 2022-08-01 14:42:00 Kylee Montez [facility] MAGNESIUM 2022-08-01 10:42:00 Lorenza Lowry [facility] BASIC METABOLIC PANEL (NA, K , CL, CO2, GLUCOSE, BUN, CREATININE, CA) 2022-08-01 10:42:00 Lorenza Lowry [facility] CBC WITH DIFF 2022-08-01 10:42[facility]-BNP 2022-08-01 10:42:00 Kylee Montez [facility] POCT GLUCOSE (AUTOMATED) 2022-08-01 06:56:00 [facility] 2022-07-31 22:31:36 [facility]22-07-31 20:52:[address] [facility] URINE DRUG (IMMUNOASSAY) - COMPREHENSIVE DRUG SCREEN W/O REFLEX 2022-07-31 20:52:00 [facility] 1 VW 2022-07-31 18:45:17 [facility]IP[facility] 2022-07-31 17:58:[address] [facility] TROPONIN I 2022-07-31 17:58:[address] [facility] COMP. METABOLIC PANEL ([id number]) 2022-07-31 17:58:[address] [facility] CBC WITH DIFF 2022-07-31 17:58:[address] [facility] PROTHROMBIN TIME / INR 2022-07-31 17:58:[address] [facility] ACTIVATED PARTIAL THRMPLAS DAVID 2022-07-31 17:58:[address] [facility] N-TERMINAL PRO-BNP 2022-07-31 17:58:00 [facility]OUTINE & RHYTHM STRIP 2022-07-31 17:46:[address] [facility] NOTICE OF PRIVACY PRACTICES 2022-07-31 17:35:38 Doctor Unassigned, Hector [facility] CONSENT/REFUSAL FOR DIAGNOSI S AND TREATMENT 2022-07-31 17:35:13 Doctor Unassigned, Hector [facility] PHOSPHORUS 2022-05-08 05:51:00 Azeem Meehan [facility] MAGNESIUM 2022-05-08 05:51:00 Shefali Azeem [facility] BASIC METABOLIC PANEL (NA, K , CL, CO2, GLUCOSE, BUN, CREATININE, CA) 2022-05-08 05:51:00 Shefali [facility] CBC WITH DIFF 2022-05-08 05:51:00 Shefali [facility] BASIC METABOLIC PANEL (NA, K , CL, CO2, GLUCOSE, BUN, CREATININE, CA) 2022-05-07 07:09:00 John Cintron [facility] CBC WITH DIFF 2022-05-07 07:09:00 John Cintron [facility] POCT GLUCOSE (AUTOMATED) 2022-05-07 01:16:00 Brandyn Ibrahim [facility] HB ABO GROUPING 2022-05-06 05:07:00 Ismael Dunn [facility] BASIC METABOLIC PANEL (NA, K , CL, CO2, GLUCOSE, BUN, CREATININE, CA) 2022-05-06 05:04:00 Shefali [facility] CBC WITH DIFF 2022-05-06 05:04:00 Shefali [facility] KEPPRA (LEVETIRACETAM) 2022-05-06 05:04:00 Shefali [facility] MR LUMBAR SPINE WO CONTRAST 2022-05-06 02:54:37 Ender Monet [facility] ELECTROENCEPHALOGRAM 2022-05-06 00:00:00 John Cintron [facility] BASIC METABOLIC PANEL (NA, K , CL, CO2, GLUCOSE, BUN, CREATININE, CA) 2022-05-05 07:57:00 Ismael Dunn [facility] CBC WITH DIFF 2022-05-05 07:57:00 Ismael Dunn [facility] PROTHROMBIN TIME / INR 2022-05-05 07:57:00 Ismael Dunn [facility] ACTIVATED PARTIAL THRMPLAS DAVID 2022-05-05 07:57:00 Ismael Dunn [facility] FIBRINOGEN 2022-05-05 07:57:00 Ogasawara[facility] AND AUTHORIZATIONS 2022-05-04 05:01:00 Doctor Unassigned, Hector [facility] VITAMIN D, 25-[place] 2022-04-15 16:53:00 Sen Toledo [facility] MR THORACIC SPINE WO CONTRAST 2022-04-15 11:56:19 Harshil [facility] MR CERVICAL SPINE WO CONTRAST 2022-04-15 11:20:00 Harshil [facility] BASIC METABOLIC PANEL (NA, K , CL, CO2, GLUCOSE, BUN, CREATININE, CA) 2022-04-15 10:36:00 Charmaine Morataya [facility] TEST, URINE 2022-04-15 04:39:00 Harshil [facility] URINE DRUG (IMMUNOASSAY) - COMPREHENSIVE DRUG SCREEN 2022-04-15 04:39:00 Harshil [facility] URINALYSIS 2022-04-15 04:39:00 Harshil [facility] TRANSTHORACIC ECHO (TTE) COMPLETE W/ CONTRAST 2022-04-14 16:37:03 Harshil [facility] KEPPRA (LEVETIRACETAM) 2022-04-14 15:30:00 Harshil [facility] MAGNESIUM 2022-04-14 10:03:00 Harshil [facility] BASIC METABOLIC PANEL (NA, K , CL, CO2, GLUCOSE, BUN, CREATININE, CA) 2022-04-14 10:03:00 Harshil [facility] MR LUMBAR SPINE WO CONTRAST 2022-04-14 02:48:12 Harshil [facility] MR STROKE BRAIN WO CONTRAST 2022-04-14 02:29:[address] [facility] [address] STROKE ANGIOGRAM HEAD 2022-04-13 18:40:00 Sapna Vargas [facility] CT STROKE ANGIOGRAM NECK 2022-04-13 18:40:00 Sapna Vargas [facility] CT STROKE HEAD WO CONTRAST 2022-04-13 18:36:00 Sapna Vargas [facility] TROPONIN I 2022-04-13 18:17:00 Sapna Vargas [facility] THYROID STIMULATING HORMONE 2022-04-13 18:17:00 Harshil Soumya [facility] BASIC METABOLIC PANEL (NA, K , CL, CO2, GLUCOSE, BUN, CREATININE, CA) 2022-04-13 18:17:00 Sapna Vargas [facility] LIPID PANEL (99204)(TOTAL CHOLESTEROL, TRIGLYCERIDES, HDL) 2022-04-13 18:17:00 Harshil [facility] CBC WITHOUT DIFF 2022-04-13 18:17:00 Sapna Vargas [facility] GLYCOSYLATED HEMOGLOBIN (A1C) 2022-04-13 18:17:00 Harshil [facility] PROTHROMBIN TIME / INR 2022-04-13 18:17:00 Sapna Vargas [facility] ACTIVATED PARTIAL THRMPLAS DAVDI 2022-04-13 18:17:00 Sapna Vargas [facility] COVID-19 (ID NOW RAPID TESTING) 2022-04-13 18:17:00 Sapna Vargas [facility] LAB ONLY COVID INTERPRETATION 2022-04-13 18:17:00 Sapna Vargas [facility] HB ECG ROUTINE & RHYTHM STRIP 2022-04-13 18:15:49 Sapna Vargas [facility] CONSENT/REFUSAL FOR DIAGNOSI S AND TREATMENT 2022-04-13 18:05:14 Doctor Unassigned, Hector [facility] HOSPITAL ADMISSION 2022-04-13 05:01:00 Doctor Unassigned, Hector [facility] SARS-COV-2 COVID-19 VACCINE 12 YRS+,0.3ML,IM (PFIZER - [facility]) 2022-02-19 15:21:12 Doctor Unassigned, Hector [facility] URINE DRUG (IMMUNOASSAY) - COMPREHENSIVE DRUG SCREEN W/O REFLEX 2021-11-23 21:21:00 Nichelle Virk [facility] CT HEAD WO CONTRAST 2021-11-23 20:58:00 Nichelle Virk [facility] POCT TEST 2021-11-23 20:46:00 Nichelle Virk [facility] URINALYSIS 2021-11-23 20:43:00 Nichelle Virk [facility] LIPASE 2021-11-23 20:27:00 Sully Jorjeankita Angelia [facility] TROPONIN I 2021-11-23 20:27:00 Sully Jorjemickey Angelia [facility] COMP. METABOLIC PANEL (17227) 2021-11-23 20:27:00 Nichelle Virk [facility] CBC WITH DIFF 2021-11-23 20:27[facility] 2021-11-23 20:15:00 Doctor Unassigned, Hector [facility] SARS-COV-2 COVID-19 VACCINE,0.3ML,IM (PFIZER) 2021-05-24 14:23:12 Doctor Unassigned, Hector [facility] SARS-COV-2 COVID-19 VACCINE,0.3ML,IM (PFIZER) 2021-05-03 14:59:29 Doctor Unassigned, Hector [facility] EMERGENCY SERVICES AGREEMENT S AND AUTHORIZATIONS 2021-04-16 05:01:00 Doctor Unassigned, Hector [facility] URINALYSIS 2021-03-17 03:09:00 Fabrice Chakraborty [facility] XR CHEST 1 VW 2021-03-17 01:45:07 Palmer [facility] TROPONIN I 2021-03-17 01:35:00 [facility] METABOLIC PANEL ([id number]) 2021-03-17 01:35:00 Palmer [facility] CBC WITH DIFF 2021-03-17 01:35:00 Palmer [facility] N-TERMINAL PRO-BNP 2021-03-17 01:35:00 Palmer [facility] COVID-19 (ID NOW RAPID TESTING) 2021-03-17 00:58:00 Brian Bryan [facility] CONSENT/REFUSAL FOR DIAGNOSI S AND TREATMENT 2021-03-17 00:32:59 Doctor Unassigned, Hector [facility] COVID-19 (ID NOW RAPID TESTING) 2021-02-19 17:04:00 Anali Monroy [facility] CT ABDOMEN PELVIS W CONTRAST 2021-02-19 16:41:18 Anali Monroy [facility] LIPASE 2021-02-19 15:58:00 Anali Monroy [facility] COMP. METABOLIC PANEL ([id number]) 2021-02-19 15:58:00 Anali Monroy [facility] CBC WITH DIFF 2021-02-19 15:58:00 Anali Monroy [facility] URINALYSIS 2021-02-19 15:58:00 Anali Monroy [facility] NOTICE OF PRIVACY PRACTICES 2021-02-19 15:30:46 Doctor Unassigned, Hector [facility] CONSENT/REFUSAL FOR DIAGNOSI S AND TREATMENT 2021-02-19 15:30:30 Doctor Unassigned, Hector [facility] Plan of Care Planned Activity Planned Date Details Comments Source Future Scheduled Test 2025-08-02 00:00:00 Lipid panel (procedure) [code = 73170222] [facility] Future Scheduled Test 2025-08-02 00:00:00 Lipid panel (procedure) [code = 53504500] [facility] Future Scheduled Test 2025-08-02 00:00:00 Lipid panel (procedure) [code = 99200226] [facility] Future Scheduled Test 2025-08-02 00:00:00 Lipid panel (procedure) [code = 62878483] [facility] Future Scheduled Test 2025-08-02 00:00:00 Lipid panel (procedure) [code = 53345888] [facility] Future Scheduled Test 2025-08-02 00:00:00 Lipid panel (procedure) [code = 44587686] [facility] Future Scheduled Test 2025-08-02 00:00:00 Lipid panel (procedure) [code = 39723106] [facility] Future Scheduled Test 2025-08-02 00:00:00 Lipid panel (procedure) [code = 09779471] [facility] Future Scheduled Test 2025-08-02 00:00:00 Lipid panel (procedure) [code = 43851682] [facility] Future Scheduled Test 2025-08-02 00:00:00 Lipid panel (procedure) [code = 52748747] [facility] Future Scheduled Test 2025-08-02 00:00:00 Lipid panel (procedure) [code = 53861752] [facility] Future Scheduled Test 2025-08-02 00:00:00 Lipid panel (procedure) [code = 29748069] [facility] Future Scheduled Test 2025-08-02 00:00:00 Lipid panel (procedure) [code = 11343028] [facility] Future Scheduled Test 2025-08-02 00:00:00 Lipid panel (procedure) [code = 04115974] [facility] Future Scheduled Test 2025-08-02 00:00:00 Lipid panel (procedure) [code = 79078076] [facility] Future Scheduled Test 2025-08-02 00:00:00 Lipid panel (procedure) [code = 55613054] [facility] Future Scheduled Test 2025-08-02 00:00:00 Lipid panel (procedure) [code = 43612906] [facility] Future Scheduled Test 2025-08-02 00:00:00 Lipid panel (procedure) [code = 89793684] [facility] Future Scheduled Test 2025-08-02 00:00:00 Lipid panel (procedure) [code = 42943676] [facility] Future Scheduled Test 2025-08-02 00:00:00 Lipid panel (procedure) [code = 52797441] [facility] Future Scheduled Test 2025-08-02 00:00:00 Lipid panel (procedure) [code = 32975114] [facility] Future Scheduled Test 2025-08-02 00:00:00 Lipid panel (procedure) [code = 42864856] [facility] Future Scheduled Test 2025-08-02 00:00:00 Lipid panel (procedure) [code = 64729846] [facility] Future Scheduled Test 2025-08-02 00:00:00 Lipid panel (procedure) [code = 65104348] [facility] Future Scheduled Test 2025-08-02 00:00:00 Lipid panel (procedure) [code = 98664854] [facility] Future Scheduled Test 2025-08-02 00:00:00 Lipid panel (procedure) [code = 29951400] [facility] Future Scheduled Test 2025-08-02 00:00:00 Lipid panel (procedure) [code = 94138490] [facility] Future Scheduled Test 2025-08-02 00:00:00 Lipid panel (procedure) [code = 07676683] [facility] Future Scheduled Test 2025-08-02 00:00:00 Lipid panel (procedure) [code = 09151393] [facility] Future Scheduled Test 2025-08-02 00:00:00 Lipid panel (procedure) [code = 25143736] [facility] Future Scheduled Test 2025-08-02 00:00:00 Lipid panel (procedure) [code = 58508375] [facility] Future Scheduled Test 2025-08-02 00:00:00 Lipid panel (procedure) [code = 84449297] [facility] Future Scheduled Test 2025-08-02 00:00:00 Lipid panel (procedure) [code = 61714676] [facility] Future Scheduled Test 2025-08-02 00:00:00 Lipid panel (procedure) [code = 28055529] [facility] Future Scheduled Test 2025-08-02 00:00:00 Lipid panel (procedure) [code = 70269104] [facility] Future Scheduled Test 2025-08-02 00:00:00 Lipid panel (procedure) [code = 18132562] [facility] Future Scheduled Test 2025-08-02 00:00:00 Lipid panel (procedure) [code = 78724317] [facility] Future Scheduled Test 2025-08-02 00:00:00 Lipid panel (procedure) [code = 44483599] [facility] Future Scheduled Test 2025-08-02 00:00:00 Lipid panel (procedure) [code = 88510445] [facility] Future Scheduled Test 2025-08-02 00:00:00 Lipid panel (procedure) [code = 29277387] [facility] Future Scheduled Test 2025-08-02 00:00:00 Lipid panel (procedure) [code = 47331674] [facility] Future Scheduled Test 2025-08-02 00:00:00 Lipid panel (procedure) [code = 60461842] [facility] Future Scheduled Test 2025-08-02 00:00:00 Lipid panel (procedure) [code = 30545094] [facility] Future Scheduled Test 2025-08-02 00:00:00 Lipid panel (procedure) [code = 85046520] [facility] Future Scheduled Test 2025-08-02 00:00:00 Lipid panel (procedure) [code = 43557060] [facility] Future Scheduled Test 2025-08-02 00:00:00 Lipid panel (procedure) [code = 05164248] [facility] Future Scheduled Test 2025-08-02 00:00:00 Lipid panel (procedure) [code = 54382580] [facility] Future Scheduled Test 2025-08-02 00:00:00 Lipid panel (procedure) [code = 76209215] [facility] Future Scheduled Test 2025-08-02 00:00:00 Lipid panel (procedure) [code = 52700761] [facility] Future Scheduled Test 2025-08-02 00:00:00 Lipid panel (procedure) [code = 35778753] [facility] Future Scheduled Test 2025-08-02 00:00:00 Lipid panel (procedure) [code = 26201133] [facility] Future Scheduled Test 2025-08-02 00:00:00 Lipid panel (procedure) [code = 87609718] [facility] Future Scheduled Test 2025-08-02 00:00:00 Lipid panel (procedure) [code = 19592093] [facility] Future Scheduled Test 2025-08-02 00:00:00 Lipid panel (procedure) [code = 80193483] [facility] Future Scheduled Test 2024-05-28 00:00:00 Tobacco Cessation Counseling and Screening (12+) [code = Tobacco Cessation Counseling and Screening (12+)] [facility] Scheduled Test 2024-05-28 00:00:00 Tobacco Cessation Counseling and Screening (12+) [code = Tobacco Cessation Counseling and Screening (12+)] [facility] Scheduled Test 2024-05-28 00:00:00 Tobacco Cessation Counseling and Screening (12+) [code = Tobacco Cessation Counseling and Screening (12+)] [facility] Scheduled Test 2024-05-28 00:00:00 Tobacco Cessation Counseling and Screening (12+) [code = Tobacco Cessation Counseling and Screening (12+)] [facility] Scheduled Test 2024-05-28 00:00:00 Tobacco Cessation Counseling and Screening (12+) [code = Tobacco Cessation Counseling and Screening (12+)] [facility] Scheduled Test 2024-05-28 00:00:00 Tobacco Cessation Counseling and Screening (12+) [code = Tobacco Cessation Counseling and Screening (12+)] [facility] Scheduled Test 2024-05-28 00:00:00 Tobacco Cessation Counseling and Screening (12+) [code = Tobacco Cessation Counseling and Screening (12+)] [facility] Scheduled Test 2024-05-28 00:00:00 Tobacco Cessation Counseling and Screening (12+) [code = Tobacco Cessation Counseling and Screening (12+)] [facility] Scheduled Test 2024-05-28 00:00:00 Tobacco Cessation Counseling and Screening (12+) [code = Tobacco Cessation Counseling and Screening (12+)] [facility] Scheduled Test 2024-05-28 00:00:00 Tobacco Cessation Counseling and Screening (12+) [code = Tobacco Cessation Counseling and Screening (12+)] [facility] Scheduled Test 2024-05-28 00:00:00 Tobacco Cessation Counseling and Screening (12+) [code = Tobacco Cessation Counseling and Screening (12+)] [facility] Scheduled Test 2024-05-28 00:00:00 Tobacco Cessation Counseling and Screening (12+) [code = Tobacco Cessation Counseling and Screening (12+)] [facility] Scheduled Test 2024-05-28 00:00:00 Tobacco Cessation Counseling and Screening (12+) [code = Tobacco Cessation Counseling and Screening (12+)] [facility] Future Scheduled Test 2024-05-28 00:00:00 Tobacco Cessation Counseling and Screening (12+) [code = Tobacco Cessation Counseling and Screening (12+)] [facility] Scheduled Test 2024-05-28 00:00:00 Tobacco Cessation Counseling and Screening (12+) [code = Tobacco Cessation Counseling and Screening (12+)] [facility] Scheduled Test 2024-05-28 00:00:00 Tobacco Cessation Counseling and Screening (12+) [code = Tobacco Cessation Counseling and Screening (12+)] [facility] Scheduled Test 2024-05-28 00:00:00 Tobacco Cessation Counseling and Screening (12+) [code = Tobacco Cessation Counseling and Screening (12+)] [facility] Scheduled Test 2024-05-28 00:00:00 Tobacco Cessation Counseling and Screening (12+) [code = Tobacco Cessation Counseling and Screening (12+)] [facility] Scheduled Test 2024-05-28 00:00:00 Tobacco Cessation Counseling and Screening (12+) [code = Tobacco Cessation Counseling and Screening (12+)] [facility] Scheduled Test 2024-05-28 00:00:00 Tobacco Cessation Counseling and Screening (12+) [code = Tobacco Cessation Counseling and Screening (12+)] [facility] Scheduled Test 2024-05-28 00:00:00 Tobacco Cessation Counseling and Screening (12+) [code = Tobacco Cessation Counseling and Screening (12+)] [facility] Scheduled Test 2024-05-28 00:00:00 Tobacco Cessation Counseling and Screening (12+) [code = Tobacco Cessation Counseling and Screening (12+)] [facility] Scheduled Test 2024-05-28 00:00:00 Tobacco Cessation Counseling and Screening (12+) [code = Tobacco Cessation Counseling and Screening (12+)] [facility] Scheduled Test 2024-05-28 00:00:00 Tobacco Cessation Counseling and Screening (12+) [code = Tobacco Cessation Counseling and Screening (12+)] [facility] Scheduled Test 2024-05-28 00:00:00 Tobacco Cessation Counseling and Screening (12+) [code = Tobacco Cessation Counseling and Screening (12+)] [facility] Future Scheduled Test 2024-05-28 00:00:00 Tobacco Cessation Counseling and Screening (12+) [code = Tobacco Cessation Counseling and Screening (12+)] [facility] Future Scheduled Test 2024-05-28 00:00:00 Tobacco Cessation Counseling and Screening (12+) [code = Tobacco Cessation Counseling and Screening (12+)] [facility] Future Scheduled Test 2024-05-28 00:00:00 Tobacco Cessation Counseling and Screening (12+) [code = Tobacco Cessation Counseling and Screening (12+)] [facility] Future Scheduled Test 2024-05-28 00:00:00 Tobacco Cessation Counseling and Screening (12+) [code = Tobacco Cessation Counseling and Screening (12+)] [facility] Scheduled Test 2024-05-26 00:00:00 Tobacco Cessation Counseling and Screening (12+) [code = Tobacco Cessation Counseling and Screening (12+)] [facility] Scheduled Test 2024-05-26 00:00:00 Tobacco Cessation Counseling and Screening (12+) [code = Tobacco Cessation Counseling and Screening (12+)] [facility] Scheduled Test 2023-07-20 00:00:00 DEPRESSION SCREENING (12+) [code = DEPRESSION SCREENING (12+)] [facility] Future Scheduled Test 2023-07-20 00:00:00 DEPRESSION SCREENING (12+) [code = DEPRESSION SCREENING (12+)] [facility] Future Scheduled Test 2023-07-20 00:00:00 DEPRESSION SCREENING (12+) [code = DEPRESSION SCREENING (12+)] [facility] Future Scheduled Test 2023-07-20 00:00:00 DEPRESSION SCREENING (12+) [code = DEPRESSION SCREENING (12+)] [facility] Future Scheduled Test 2023-07-20 00:00:00 DEPRESSION SCREENING (12+) [code = DEPRESSION SCREENING (12+)] [facility] Future Scheduled Test 2023-07-20 00:00:00 DEPRESSION SCREENING (12+) [code = DEPRESSION SCREENING (12+)] [facility] Future Scheduled Test 2023-07-20 00:00:00 DEPRESSION SCREENING (12+) [code = DEPRESSION SCREENING (12+)] [facility] Future Scheduled Test 2023-07-20 00:00:00 DEPRESSION SCREENING (12+) [code = DEPRESSION SCREENING (12+)] [facility] Future Scheduled Test 2023-07-20 00:00:00 DEPRESSION SCREENING (12+) [code = DEPRESSION SCREENING (12+)] [facility] Future Scheduled Test 2023-07-20 00:00:00 DEPRESSION SCREENING (12+) [code = DEPRESSION SCREENING (12+)] [facility] Future Scheduled Test 2023-07-20 00:00:00 DEPRESSION SCREENING (12+) [code = DEPRESSION SCREENING (12+)] [facility] Future Scheduled Test 2023-07-20 00:00:00 DEPRESSION SCREENING (12+) [code = DEPRESSION SCREENING (12+)] [facility] Future Scheduled Test 2023-07-20 00:00:00 DEPRESSION SCREENING (12+) [code = DEPRESSION SCREENING (12+)] [facility] Future Scheduled Test 2023-07-20 00:00:00 DEPRESSION SCREENING (12+) [code = DEPRESSION SCREENING (12+)] [facility] Future Scheduled Test 2023-07-20 00:00:00 DEPRESSION SCREENING (12+) [code = DEPRESSION SCREENING (12+)] [facility] Future Scheduled Test 2023-07-20 00:00:00 DEPRESSION SCREENING (12+) [code = DEPRESSION SCREENING (12+)] [facility] Future Scheduled Test 2023-07-20 00:00:00 DEPRESSION SCREENING (12+) [code = DEPRESSION SCREENING (12+)] [facility] Future Scheduled Test 2023-07-20 00:00:00 DEPRESSION SCREENING (12+) [code = DEPRESSION SCREENING (12+)] [facility] Future Scheduled Test 2023-07-20 00:00:00 DEPRESSION SCREENING (12+) [code = DEPRESSION SCREENING (12+)] [facility] Future Scheduled Test 2023-07-20 00:00:00 DEPRESSION SCREENING (12+) [code = DEPRESSION SCREENING (12+)] [facility] Future Scheduled Test 2023-07-20 00:00:00 DEPRESSION SCREENING (12+) [code = DEPRESSION SCREENING (12+)] [facility] Future Scheduled Test 2023-03-20 00:00:00 INFLUENZA VACCINE (Season Ended) [code = INFLUENZA VACCINE (Season Ended)] [facility] Future Scheduled Test 2023-03-20 00:00:00 INFLUENZA VACCINE (Season Ended) [code = INFLUENZA VACCINE (Season Ended)] [facility] Future Scheduled Test 2023-03-20 00:00:00 INFLUENZA VACCINE (Season Ended) [code = INFLUENZA VACCINE (Season Ended)] [facility] Future Scheduled Test 2023-03-20 00:00:00 INFLUENZA VACCINE (Season Ended) [code = INFLUENZA VACCINE (Season Ended)] [facility] Future Scheduled Test 2023-03-20 00:00:00 INFLUENZA VACCINE (Season Ended) [code = INFLUENZA VACCINE (Season Ended)] [facility] Future Scheduled Test 2023-03-20 00:00:00 INFLUENZA VACCINE (Season Ended) [code = INFLUENZA VACCINE (Season Ended)] [facility] Future Scheduled Test 2023-03-20 00:00:00 Influenza Vaccine (Season Ended) [code = Influenza Vaccine (Season Ended)] [facility] Future Scheduled Test 2023-03-20 00:00:00 Influenza Vaccine (Season Ended) [code = Influenza Vaccine (Season Ended)] [facility] Future Scheduled Test 2023-03-20 00:00:00 Influenza Vaccine (#1) [code = Influenza Vaccine (#1)] [facility] Future Scheduled Test 2023-03-20 00:00:00 Influenza Vaccine (#1) [code = Influenza Vaccine (#1)] [facility] Future Scheduled Test 2023-03-20 00:00:00 Influenza Vaccine (#1) [code = Influenza Vaccine (#1)] [facility] Future Scheduled Test 2023-03-20 00:00:00 Influenza Vaccine (#1) [code = Influenza Vaccine (#1)] [facility] Future Scheduled Test 2023-03-20 00:00:00 COVID-19 VACCINE ( season) [code = COVID-19 VACCINE ( season)] [facility] Future Scheduled Test 2023-03-20 00:00:00 Influenza Vaccine (#1) [code = Influenza Vaccine (#1)] [facility] Future Scheduled Test 2023-03-20 00:00:00 COVID-19 VACCINE ( season) [code = COVID-19 VACCINE ( season)] [facility] Future Scheduled Test 2023-03-20 00:00:00 Influenza Vaccine (#1) [code = Influenza Vaccine (#1)] [facility] Future Scheduled Test 2023-03-20 00:00:00 COVID-19 VACCINE ( season) [code = COVID-19 VACCINE ()] [facility] Future Scheduled Test 2023-03-20 00:00:00 Influenza Vaccine (#1) [code = Influenza Vaccine (#1)] [facility] Future Scheduled Test 2023-03-20 00:00:00 COVID-19 VACCINE ( season) [code = COVID-19 VACCINE ()] [facility] Future Scheduled Test 2023-03-20 00:00:00 Influenza Vaccine (#1) [code = Influenza Vaccine (#1)] [facility] Future Scheduled Test 2023-03-20 00:00:00 Influenza Vaccine (#1) [code = Influenza Vaccine (#1)] [facility] Future Scheduled Test 2023-03-20 00:00:00 COVID-19 VACCINE ( season) [code = COVID-19 VACCINE ( season)] [facility] Future Scheduled Test 2023-03-20 00:00:00 Influenza Vaccine (#1) [code = Influenza Vaccine (#1)] [facility] Future Scheduled Test 2023-03-20 00:00:00 COVID-19 VACCINE ( season) [code = COVID-19 VACCINE ( season)] [facility] Future Scheduled Test 2023-03-20 00:00:00 Influenza Vaccine (#1) [code = Influenza Vaccine (#1)] [facility] Future Scheduled Test 2023-03-20 00:00:00 COVID-19 VACCINE ( season) [code = COVID-19 VACCINE ( season)] [facility] Future Scheduled Test 2023-03-20 00:00:00 Influenza Vaccine (#1) [code = Influenza Vaccine (#1)] [facility] Future Scheduled Test 2023-03-20 00:00:00 COVID-19 VACCINE ( season) [code = COVID-19 VACCINE ()] [facility] Future Scheduled Test 2023-03-20 00:00:00 Influenza Vaccine (#1) [code = Influenza Vaccine (#1)] [facility] Future Scheduled Test 2023-03-20 00:00:00 COVID-19 VACCINE () [code = COVID-19 VACCINE ()] [facility] Future Scheduled Test 2023-03-20 00:00:00 Influenza Vaccine (#1) [code = Influenza Vaccine (#1)] [facility] Future Scheduled Test 2023-03-20 00:00:00 COVID-19 VACCINE () [code = COVID-19 VACCINE ()] [facility] Future Scheduled Test 2023-03-20 00:00:00 Influenza Vaccine (#1) [code = Influenza Vaccine (#1)] [facility] Future Scheduled Test 2023-03-20 00:00:00 COVID-19 VACCINE ( season) [code = COVID-19 VACCINE ( season)] [facility] Scheduled Test 2023-03-20 00:00:00 Influenza Vaccine (#1) [code = Influenza Vaccine (#1)] [facility] Scheduled Test 2023-03-20 00:00:00 Influenza Vaccine (#1) [code = Influenza Vaccine (#1)] [facility] Scheduled Test 2023-03-20 00:00:00 COVID-19 VACCINE ( season) [code = COVID-19 VACCINE ( season)] [facility] Scheduled Test 2023-03-20 00:00:00 Influenza Vaccine (#1) [code = Influenza Vaccine (#1)] [facility] Scheduled Test 2023-03-20 00:00:00 COVID-19 VACCINE ( season) [code = COVID-19 VACCINE ()] [facility] Scheduled Test 2023-03-20 00:00:00 Influenza Vaccine (#1) [code = Influenza Vaccine (#1)] [facility] Scheduled Test 2023-03-20 00:00:00 COVID-19 VACCINE ( season) [code = COVID-19 VACCINE ()] [facility] Scheduled Test 2023-03-20 00:00:00 Influenza Vaccine (#1) [code = Influenza Vaccine (#1)] [facility] Scheduled Test 2023-03-20 00:00:00 COVID-19 VACCINE ( season) [code = COVID-19 VACCINE ()] [facility] Scheduled Test 2023-03-20 00:00:00 Influenza Vaccine (#1) [code = Influenza Vaccine (#1)] [facility] Scheduled Test 2023-03-20 00:00:00 COVID-19 VACCINE ( season) [code = COVID-19 VACCINE ( season)] [facility] Scheduled Test 2023-03-20 00:00:00 Influenza Vaccine (#1) [code = Influenza Vaccine (#1)] [facility] Scheduled Test 2023-03-20 00:00:00 COVID-19 VACCINE ( season) [code = COVID-19 VACCINE ( season)] [facility] Scheduled Test 2023-03-20 00:00:00 Influenza Vaccine (#1) [code = Influenza Vaccine (#1)] [facility] Scheduled Test 2023-03-20 00:00:00 Influenza Vaccine (#1) [code = Influenza Vaccine (#1)] [facility] Scheduled Test 2023-03-20 00:00:00 COVID-19 VACCINE ( season) [code = COVID-19 VACCINE ()] [facility] Scheduled Test 2023-03-20 00:00:00 Influenza Vaccine (#1) [code = Influenza Vaccine (#1)] [facility] Scheduled Test 2023-03-20 00:00:00 COVID-19 VACCINE ( season) [code = COVID-19 VACCINE ()] [facility] Scheduled Test 2023-03-20 00:00:00 Influenza Vaccine (#1) [code = Influenza Vaccine (#1)] [facility] Scheduled Test 2023-03-20 00:00:00 COVID-19 VACCINE ( season) [code = COVID-19 VACCINE ()] [facility] Scheduled Test 2023-03-20 00:00:00 Influenza Vaccine (#1) [code = Influenza Vaccine (#1)] [facility] Scheduled Test 2023-03-20 00:00:00 COVID-19 VACCINE ( season) [code = COVID-19 VACCINE ()] [facility] Scheduled Test 2023-03-20 00:00:00 Influenza Vaccine (#1) [code = Influenza Vaccine (#1)] [facility] Scheduled Test 2023-03-20 00:00:00 Influenza Vaccine (#1) [code = Influenza Vaccine (#1)] [facility] Scheduled Test 2023-03-20 00:00:00 COVID-19 VACCINE ( season) [code = COVID-19 VACCINE ()] [facility] Scheduled Test 2023-03-20 00:00:00 Influenza Vaccine (#1) [code = Influenza Vaccine (#1)] [facility] Scheduled Test 2023-03-20 00:00:00 COVID-19 VACCINE ( season) [code = COVID-19 VACCINE ( season)] [facility] Scheduled Test 2023-03-20 00:00:00 Influenza Vaccine (#1) [code = Influenza Vaccine (#1)] [facility] Scheduled Test 2023-03-20 00:00:00 Influenza Vaccine (#1) [code = Influenza Vaccine (#1)] [facility] Scheduled Test 2023-03-20 00:00:00 Influenza Vaccine (#1) [code = Influenza Vaccine (#1)] [facility] Scheduled Test 2023-03-20 00:00:00 Influenza Vaccine (#1) [code = Influenza Vaccine (#1)] [facility] Scheduled Test 2023-03-20 00:00:00 Influenza Vaccine (#1) [code = Influenza Vaccine (#1)] [facility] Scheduled Test 2023-03-20 00:00:00 Influenza Vaccine (#1) [code = Influenza Vaccine (#1)] [facility] Scheduled Test 2023-03-20 00:00:00 Influenza Vaccine (#1) [code = Influenza Vaccine (#1)] [facility] Scheduled Test 2023-03-20 00:00:00 Influenza Vaccine (#1) [code = Influenza Vaccine (#1)] [facility] Scheduled Test 2023-03-20 00:00:00 Influenza Vaccine (#1) [code = Influenza Vaccine (#1)] [facility] Scheduled Test 2023-03-20 00:00:00 Influenza Vaccine (#1) [code = Influenza Vaccine (#1)] [facility] Scheduled Test 2023-03-20 00:00:00 Influenza Vaccine (#1) [code = Influenza Vaccine (#1)] [facility] Scheduled Test 2023-03-20 00:00:00 Influenza Vaccine (#1) [code = Influenza Vaccine (#1)] [facility] Scheduled Test 2023-03-20 00:00:00 COVID-19 VACCINE ( season) [code = COVID-19 VACCINE ( season)] [facility] Scheduled Test 2022-07-20 00:00:00 DEPRESSION SCREENING (12+) [code = DEPRESSION SCREENING (12+)] [facility] Scheduled Test 2022-07-20 00:00:00 DEPRESSION SCREENING (12+) [code = DEPRESSION SCREENING (12+)] [facility] Scheduled Test 2022-07-20 00:00:00 DEPRESSION SCREENING (12+) [code = DEPRESSION SCREENING (12+)] [facility] Scheduled Test 2022-07-20 00:00:00 DEPRESSION SCREENING (12+) [code = DEPRESSION SCREENING (12+)] [facility] Scheduled Test 2022-07-20 00:00:00 DEPRESSION SCREENING (12+) [code = DEPRESSION SCREENING (12+)] [facility] Scheduled Test 2022-07-20 00:00:00 DEPRESSION SCREENING (12+) [code = DEPRESSION SCREENING (12+)] [facility] Scheduled Test 2022-07-20 00:00:00 DEPRESSION SCREENING (12+) [code = DEPRESSION SCREENING (12+)] [facility] Scheduled Test 2022-07-20 00:00:00 DEPRESSION SCREENING (12+) [code = DEPRESSION SCREENING (12+)] [facility] Scheduled Test 2022-07-20 00:00:00 DEPRESSION SCREENING (12+) [code = DEPRESSION SCREENING (12+)] [facility] Scheduled Test 2022-07-20 00:00:00 DEPRESSION SCREENING (12+) [code = DEPRESSION SCREENING (12+)] [facility] Scheduled Test 2022-07-20 00:00:00 DEPRESSION SCREENING (12+) [code = DEPRESSION SCREENING (12+)] [facility] Scheduled Test 2022-07-20 00:00:00 DEPRESSION SCREENING (12+) [code = DEPRESSION SCREENING (12+)] [facility] Scheduled Test 2022-07-20 00:00:00 DEPRESSION SCREENING (12+) [code = DEPRESSION SCREENING (12+)] [facility] Scheduled Test 2022-07-20 00:00:00 DEPRESSION SCREENING (12+) [code = DEPRESSION SCREENING (12+)] [facility] Scheduled Test 2022-07-20 00:00:00 DEPRESSION SCREENING (12+) [code = DEPRESSION SCREENING (12+)] [facility] Scheduled Test 2022-07-20 00:00:00 DEPRESSION SCREENING (12+) [code = DEPRESSION SCREENING (12+)] [facility] Scheduled Test 2022-07-20 00:00:00 DEPRESSION SCREENING (12+) [code = DEPRESSION SCREENING (12+)] [facility] Scheduled Test 2022-07-20 00:00:00 DEPRESSION SCREENING (12+) [code = DEPRESSION SCREENING (12+)] [facility] Scheduled Test 2022-07-20 00:00:00 DEPRESSION SCREENING (12+) [code = DEPRESSION SCREENING (12+)] [facility] Scheduled Test 2022-07-20 00:00:00 DEPRESSION SCREENING (12+) [code = DEPRESSION SCREENING (12+)] [facility] Scheduled Test 2022-07-20 00:00:00 DEPRESSION SCREENING (12+) [code = DEPRESSION SCREENING (12+)] [facility] Scheduled Test 2022-07-20 00:00:00 DEPRESSION SCREENING (12+) [code = DEPRESSION SCREENING (12+)] [facility] Scheduled Test 2022-07-20 00:00:00 DEPRESSION SCREENING (12+) [code = DEPRESSION SCREENING (12+)] [facility] Scheduled Test 2022-07-20 00:00:00 DEPRESSION SCREENING (12+) [code = DEPRESSION SCREENING (12+)] [facility] Scheduled Test 2022-07-20 00:00:00 DEPRESSION SCREENING (12+) [code = DEPRESSION SCREENING (12+)] [facility] Scheduled Test 2022-07-20 00:00:00 DEPRESSION SCREENING (12+) [code = DEPRESSION SCREENING (12+)] [facility] Scheduled Test 2022-07-20 00:00:00 DEPRESSION SCREENING (12+) [code = DEPRESSION SCREENING (12+)] [facility] Scheduled Test 2022-07-20 00:00:00 DEPRESSION SCREENING (12+) [code = DEPRESSION SCREENING (12+)] [facility] Scheduled Test 2022-07-20 00:00:00 DEPRESSION SCREENING (12+) [code = DEPRESSION SCREENING (12+)] [facility] Scheduled Test 2022-07-20 00:00:00 DEPRESSION SCREENING (12+) [code = DEPRESSION SCREENING (12+)] [facility] Scheduled Test 2022-07-20 00:00:00 DEPRESSION SCREENING (12+) [code = DEPRESSION SCREENING (12+)] [facility] Scheduled Test 2022-07-20 00:00:00 DEPRESSION SCREENING (12+) [code = DEPRESSION SCREENING (12+)] [facility] Scheduled Test 2022-07-20 00:00:00 DEPRESSION SCREENING (12+) [code = DEPRESSION SCREENING (12+)] [facility] Scheduled Test 2022-06-21 00:00:00 COVID-19 VACCINE (4 - Booster for Pfizer series) [code = COVID-19 VACCINE (4 - Booster for Pfizer series)] [facility] Scheduled Test 2022-06-21 00:00:00 COVID-19 VACCINE (4 - Booster for Pfizer series) [code = COVID-19 VACCINE (4 - Booster for Pfizer series)] [facility] Scheduled Test 2022-06-21 00:00:00 COVID-19 VACCINE (4 - Booster for Pfizer series) [code = COVID-19 VACCINE (4 - Booster for Pfizer series)] [facility] Scheduled Test 2022-06-21 00:00:00 COVID-19 VACCINE (4 - Booster for Pfizer series) [code = COVID-19 VACCINE (4 - Booster for Pfizer series)] [facility] Scheduled Test 2022-04-16 00:00:00 COVID-19 VACCINE (4 - Booster for Pfizer series) [code = COVID-19 VACCINE (4 - Booster for Pfizer series)] [facility] Scheduled Test 2022-04-16 00:00:00 COVID-19 VACCINE (4 - Booster for Pfizer series) [code = COVID-19 VACCINE (4 - Booster for Pfizer series)] [facility] Scheduled Test 2022-04-16 00:00:00 COVID-19 VACCINE (4 - Booster for Pfizer series) [code = COVID-19 VACCINE (4 - Booster for Pfizer series)] [facility] Scheduled Test 2022-04-16 00:00:00 COVID-19 VACCINE (4 - Booster for Pfizer series) [code = COVID-19 VACCINE (4 - Booster for Pfizer series)] [facility] Scheduled Test 2022-04-16 00:00:00 COVID-19 VACCINE (4 - Booster for Pfizer series) [code = COVID-19 VACCINE (4 - Booster for Pfizer series)] [facility] Scheduled Test 2022-04-16 00:00:00 COVID-19 VACCINE (4 - Booster for Pfizer series) [code = COVID-19 VACCINE (4 - Booster for Pfizer series)] [facility] Scheduled Test 2022-04-16 00:00:00 COVID-19 VACCINE (4 - Booster for Pfizer series) [code = COVID-19 VACCINE (4 - Booster for Pfizer series)] [facility] Scheduled Test 2022-04-16 00:00:00 COVID-19 VACCINE (4 - Booster for Pfizer series) [code = COVID-19 VACCINE (4 - Booster for Pfizer series)] [facility] Scheduled Test 2022-04-16 00:00:00 COVID-19 VACCINE (4 - Booster for Pfizer series) [code = COVID-19 VACCINE (4 - Booster for Pfizer series)] [facility] Scheduled Test 2022-04-16 00:00:00 COVID-19 VACCINE (4 - Booster for Pfizer series) [code = COVID-19 VACCINE (4 - Booster for Pfizer series)] [facility] Scheduled Test 2022-04-16 00:00:00 COVID-19 VACCINE (4 - Booster for Pfizer series) [code = COVID-19 VACCINE (4 - Booster for Pfizer series)] [facility] Scheduled Test 2022-04-16 00:00:00 COVID-19 VACCINE (4 - Booster for Pfizer series) [code = COVID-19 VACCINE (4 - Booster for Pfizer series)] [facility] Scheduled Test 2022-04-16 00:00:00 COVID-19 VACCINE (4 - Booster for Pfizer series) [code = COVID-19 VACCINE (4 - Booster for Pfizer series)] [facility] Scheduled Test 2022-04-16 00:00:00 COVID-19 VACCINE (4 - Booster for Pfizer series) [code = COVID-19 VACCINE (4 - Booster for Pfizer series)] [facility] Scheduled Test 2022-04-16 00:00:00 COVID-19 VACCINE (4 - Booster for Pfizer series) [code = COVID-19 VACCINE (4 - Booster for Pfizer series)] [facility] Scheduled Test 2022-04-16 00:00:00 COVID-19 VACCINE (4 - Booster for Pfizer series) [code = COVID-19 VACCINE (4 - Booster for Pfizer series)] [facility] Scheduled Test 2022-04-16 00:00:00 COVID-19 VACCINE (4 - Booster for Pfizer series) [code = COVID-19 VACCINE (4 - Booster for Pfizer series)] [facility] Scheduled Test 2022-04-16 00:00:00 COVID-19 VACCINE (4 - Booster for Pfizer series) [code = COVID-19 VACCINE (4 - Booster for Pfizer series)] [facility] Scheduled Test 2022-04-16 00:00:00 COVID-19 VACCINE (4 - Booster for Pfizer series) [code = COVID-19 VACCINE (4 - Booster for Pfizer series)] [facility] Scheduled Test 2022-04-16 00:00:00 COVID-19 VACCINE (4 - Booster for Pfizer series) [code = COVID-19 VACCINE (4 - Booster for Pfizer series)] [facility] Scheduled Test 2022-04-16 00:00:00 COVID-19 VACCINE (4 - Pfizer series) [code = COVID-19 VACCINE (4 - Pfizer series)] [facility] Scheduled Test 2022-04-16 00:00:00 COVID-19 VACCINE (4 - Pfizer series) [code = COVID-19 VACCINE (4 - Pfizer series)] [facility] Scheduled Test 2022-04-16 00:00:00 COVID-19 VACCINE (4 - Pfizer series) [code = COVID-19 VACCINE (4 - Pfizer series)] [facility] Scheduled Test 2022-04-16 00:00:00 COVID-19 VACCINE (4 - Pfizer series) [code = COVID-19 VACCINE (4 - Pfizer series)] [facility] Scheduled Test 2022-04-16 00:00:00 COVID-19 VACCINE (4 - Booster for Pfizer series) [code = COVID-19 VACCINE (4 - Booster for Pfizer series)] [facility] Scheduled Test 2022-04-16 00:00:00 COVID-19 VACCINE (4 - Pfizer series) [code = COVID-19 VACCINE (4 - Pfizer series)] [facility] Scheduled Test 2022-03-20 00:00:00 INFLUENZA VACCINE (#1) [code = INFLUENZA VACCINE (#1)] [facility] Scheduled Test 2022-03-20 00:00:00 INFLUENZA VACCINE (#1) [code = INFLUENZA VACCINE (#1)] [facility] Scheduled Test 2022-03-20 00:00:00 INFLUENZA VACCINE (#1) [code = INFLUENZA VACCINE (#1)] [facility] Scheduled Test 2022-03-20 00:00:00 INFLUENZA VACCINE (#1) [code = INFLUENZA VACCINE (#1)] [facility] Scheduled Test 2022-01-14 00:00:00 SHINGLES VACCINES (1 of 2) [code = SHINGLES VACCINES (1 of 2)] [facility] Scheduled Test 2022-01-14 00:00:00 SHINGLES VACCINES (1 of 2) [code = SHINGLES VACCINES (1 of 2)] [facility] Scheduled Test 2022-01-14 00:00:00 SHINGLES VACCINES (1 of 2) [code = SHINGLES VACCINES (1 of 2)] [facility] Scheduled Test 2022-01-14 00:00:00 SHINGLES VACCINES (1 of 2) [code = SHINGLES VACCINES (1 of 2)] [facility] Scheduled Test 2022-01-14 00:00:00 SHINGLES VACCINES (1 of 2) [code = SHINGLES VACCINES (1 of 2)] [facility] Scheduled Test 2022-01-14 00:00:00 SHINGLES VACCINES (1 of 2) [code = SHINGLES VACCINES (1 of 2)] [facility] Scheduled Test 2022-01-14 00:00:00 SHINGLES VACCINES (1 of 2) [code = SHINGLES VACCINES (1 of 2)] [facility] Scheduled Test 2022-01-14 00:00:00 SHINGLES VACCINES (1 of 2) [code = SHINGLES VACCINES (1 of 2)] [facility] Scheduled Test 2022-01-14 00:00:00 SHINGLES VACCINES (1 of 2) [code = SHINGLES VACCINES (1 of 2)] [facility] Scheduled Test 2022-01-14 00:00:00 SHINGLES VACCINES (1 of 2) [code = SHINGLES VACCINES (1 of 2)] [facility] Scheduled Test 2022-01-14 00:00:00 SHINGLES VACCINES (1 of 2) [code = SHINGLES VACCINES (1 of 2)] [facility] Scheduled Test 2022-01-14 00:00:00 SHINGLES VACCINES (1 of 2) [code = SHINGLES VACCINES (1 of 2)] [facility] Scheduled Test 2022-01-14 00:00:00 SHINGLES VACCINES (1 of 2) [code = SHINGLES VACCINES (1 of 2)] [facility] Scheduled Test 2022-01-14 00:00:00 SHINGLES VACCINES (1 of 2) [code = SHINGLES VACCINES (1 of 2)] [facility] Scheduled Test 2022-01-14 00:00:00 SHINGLES VACCINES (1 of 2) [code = SHINGLES VACCINES (1 of 2)] [facility] Scheduled Test 2022-01-14 00:00:00 Screening for malignant neoplasm of lung (procedure) [code = [id number]] [facility] Scheduled Test 2022-01-14 00:00:00 SHINGLES VACCINES (1 of 2) [code = SHINGLES VACCINES (1 of 2)] [facility] Scheduled Test 2022-01-14 00:00:00 Screening for malignant neoplasm of lung (procedure) [code = 564030774] [facility] Scheduled Test 2022-01-14 00:00:00 SHINGLES VACCINES (1 of 2) [code = SHINGLES VACCINES (1 of 2)] [facility] Scheduled Test 2022-01-14 00:00:00 Screening for malignant neoplasm of lung (procedure) [code = 540429011] [facility] Scheduled Test 2022-01-14 00:00:00 SHINGLES VACCINES (1 of 2) [code = SHINGLES VACCINES (1 of 2)] [facility] Scheduled Test 2022-01-14 00:00:00 Screening for malignant neoplasm of lung (procedure) [code = [id number]] [facility] Scheduled Test 2022-01-14 00:00:00 SHINGLES VACCINES (1 of 2) [code = SHINGLES VACCINES (1 of 2)] [facility] Scheduled Test 2022-01-14 00:00:00 Screening for malignant neoplasm of lung (procedure) [code = 533747551] [facility] Scheduled Test 2022-01-14 00:00:00 SHINGLES VACCINES (1 of 2) [code = SHINGLES VACCINES (1 of 2)] [facility] Scheduled Test 2022-01-14 00:00:00 Screening for malignant neoplasm of lung (procedure) [code = 269911605] [facility] Scheduled Test 2022-01-14 00:00:00 SHINGLES VACCINES (1 of 2) [code = SHINGLES VACCINES (1 of 2)] [facility] Scheduled Test 2022-01-14 00:00:00 Screening for malignant neoplasm of lung (procedure) [code = [id number]] [facility] Scheduled Test 2022-01-14 00:00:00 SHINGLES VACCINES (1 of 2) [code = SHINGLES VACCINES (1 of 2)] [facility] Scheduled Test 2022-01-14 00:00:00 Screening for malignant neoplasm of lung (procedure) [code = 392487402] [facility] Scheduled Test 2022-01-14 00:00:00 SHINGLES VACCINES (1 of 2) [code = SHINGLES VACCINES (1 of 2)] [facility] Scheduled Test 2022-01-14 00:00:00 Screening for malignant neoplasm of lung (procedure) [code = 183416530] [facility] Scheduled Test 2022-01-14 00:00:00 SHINGLES VACCINES (1 of 2) [code = SHINGLES VACCINES (1 of 2)] [facility] Scheduled Test 2022-01-14 00:00:00 Screening for malignant neoplasm of lung (procedure) [code = 122481848] [facility] Scheduled Test 2022-01-14 00:00:00 SHINGLES VACCINES (1 of 2) [code = SHINGLES VACCINES (1 of 2)] [facility] Scheduled Test 2022-01-14 00:00:00 Screening for malignant neoplasm of lung (procedure) [code = 685567165] [facility] Scheduled Test 2022-01-14 00:00:00 SHINGLES VACCINES (1 of 2) [code = SHINGLES VACCINES (1 of 2)] [facility] Scheduled Test 2022-01-14 00:00:00 Screening for malignant neoplasm of lung (procedure) [code = 693024978] [facility] Scheduled Test 2022-01-14 00:00:00 SHINGLES VACCINES (1 of 2) [code = SHINGLES VACCINES (1 of 2)] [facility] Scheduled Test 2022-01-14 00:00:00 Screening for malignant neoplasm of lung (procedure) [code = 478676024] [facility] Scheduled Test 2022-01-14 00:00:00 SHINGLES VACCINES (1 of 2) [code = SHINGLES VACCINES (1 of 2)] [facility] Scheduled Test 2022-01-14 00:00:00 Screening for malignant neoplasm of lung (procedure) [code = 159415766] [facility] Scheduled Test 2022-01-14 00:00:00 SHINGLES VACCINES (1 of 2) [code = SHINGLES VACCINES (1 of 2)] [facility] Scheduled Test 2022-01-14 00:00:00 Screening for malignant neoplasm of lung (procedure) [code = 793393739] [facility] Scheduled Test 2022-01-14 00:00:00 SHINGLES VACCINES (1 of 2) [code = SHINGLES VACCINES (1 of 2)] [facility] Scheduled Test 2022-01-14 00:00:00 Screening for malignant neoplasm of lung (procedure) [code = 148169176] [facility] Scheduled Test 2022-01-14 00:00:00 SHINGLES VACCINES (1 of 2) [code = SHINGLES VACCINES (1 of 2)] [facility] Scheduled Test 2022-01-14 00:00:00 Screening for malignant neoplasm of lung (procedure) [code = 062936095] [facility] Scheduled Test 2022-01-14 00:00:00 SHINGLES VACCINES (1 of 2) [code = SHINGLES VACCINES (1 of 2)] [facility] Scheduled Test 2022-01-14 00:00:00 Screening for malignant neoplasm of lung (procedure) [code = 296160681] [facility] Scheduled Test 2022-01-14 00:00:00 SHINGLES VACCINES (1 of 2) [code = SHINGLES VACCINES (1 of 2)] [facility] Scheduled Test 2022-01-14 00:00:00 Screening for malignant neoplasm of lung (procedure) [code = 967605575] [facility] Scheduled Test 2022-01-14 00:00:00 Screening for malignant neoplasm of lung (procedure) [code = 704142420] [facility] Scheduled Test 2022-01-14 00:00:00 SHINGLES VACCINES (1 of 2) [code = SHINGLES VACCINES (1 of 2)] [facility] Scheduled Test 2022-01-14 00:00:00 SHINGLES VACCINES (1 of 2) [code = SHINGLES VACCINES (1 of 2)] [facility] Scheduled Test 2022-01-14 00:00:00 Screening for malignant neoplasm of lung (procedure) [code = 819801076] [facility] Scheduled Test 2022-01-14 00:00:00 SHINGLES VACCINES (1 of 2) [code = SHINGLES VACCINES (1 of 2)] [facility] Scheduled Test 2022-01-14 00:00:00 Screening for malignant neoplasm of lung (procedure) [code = 274692923] [facility] Scheduled Test 2022-01-14 00:00:00 SHINGLES VACCINES (1 of 2) [code = SHINGLES VACCINES (1 of 2)] [facility] Scheduled Test 2022-01-14 00:00:00 Screening for malignant neoplasm of lung (procedure) [code = 474575116] [facility] Scheduled Test 2022-01-14 00:00:00 SHINGLES VACCINES (1 of 2) [code = SHINGLES VACCINES (1 of 2)] [facility] Scheduled Test 2022-01-14 00:00:00 Screening for malignant neoplasm of lung (procedure) [code = 887859954] [facility] Scheduled Test 2022-01-14 00:00:00 Screening for malignant neoplasm of lung (procedure) [code = 213699091] [facility] Scheduled Test 2022-01-14 00:00:00 SHINGLES VACCINES (1 of 2) [code = SHINGLES VACCINES (1 of 2)] [facility] Scheduled Test 2022-01-14 00:00:00 SHINGLES VACCINES (1 of 2) [code = SHINGLES VACCINES (1 of 2)] [facility] Scheduled Test 2022-01-14 00:00:00 Screening for malignant neoplasm of lung (procedure) [code = 386100033] [facility] Scheduled Test 2022-01-14 00:00:00 SHINGLES VACCINES (1 of 2) [code = SHINGLES VACCINES (1 of 2)] [facility] Scheduled Test 2022-01-14 00:00:00 Screening for malignant neoplasm of lung (procedure) [code = 540092718] [facility] Scheduled Test 2022-01-14 00:00:00 SHINGLES VACCINES (1 of 2) [code = SHINGLES VACCINES (1 of 2)] [facility] Scheduled Test 2022-01-14 00:00:00 Screening for malignant neoplasm of lung (procedure) [code = 787910429] [facility] Scheduled Test 2022-01-14 00:00:00 SHINGLES VACCINES (1 of 2) [code = SHINGLES VACCINES (1 of 2)] [facility] Scheduled Test 2022-01-14 00:00:00 Screening for malignant neoplasm of lung (procedure) [code = [id number]] [facility] Scheduled Test 2022-01-14 00:00:00 SHINGLES VACCINES (1 of 2) [code = SHINGLES VACCINES (1 of 2)] [facility] Scheduled Test 2022-01-14 00:00:00 Screening for malignant neoplasm of lung (procedure) [code = 907429523] [facility] Scheduled Test 2022-01-14 00:00:00 SHINGLES VACCINES (1 of 2) [code = SHINGLES VACCINES (1 of 2)] [facility] Scheduled Test 2022-01-14 00:00:00 SHINGLES VACCINES (1 of 2) [code = SHINGLES VACCINES (1 of 2)] [facility] Scheduled Test 2022-01-14 00:00:00 SHINGLES VACCINES (1 of 2) [code = SHINGLES VACCINES (1 of 2)] [facility] Scheduled Test 2022-01-14 00:00:00 Screening for malignant neoplasm of lung (procedure) [code = 526593555] [facility] Scheduled Test 2022-01-14 00:00:00 SHINGLES VACCINES (1 of 2) [code = SHINGLES VACCINES (1 of 2)] [facility] Scheduled Test 2022-01-14 00:00:00 Screening for malignant neoplasm of lung (procedure) [code = 055491077] [facility] Scheduled Test 2022-01-14 00:00:00 SHINGLES VACCINES (1 of 2) [code = SHINGLES VACCINES (1 of 2)] [facility] Scheduled Test 2022-01-14 00:00:00 Screening for malignant neoplasm of lung (procedure) [code = [id number]] [facility] Scheduled Test 2022-01-14 00:00:00 SHINGLES VACCINES (1 of 2) [code = SHINGLES VACCINES (1 of 2)] [facility] Scheduled Test 2022-01-14 00:00:00 Screening for malignant neoplasm of lung (procedure) [code = [id number]] [facility] Scheduled Test 2022-01-14 00:00:00 SHINGLES VACCINES (1 of 2) [code = SHINGLES VACCINES (1 of 2)] [facility] Scheduled Test 2022-01-14 00:00:00 Screening for malignant neoplasm of lung (procedure) [code = [id number]] [facility] Scheduled Test 2022-01-14 00:00:00 SHINGLES VACCINES (1 of 2) [code = SHINGLES VACCINES (1 of 2)] [facility] Scheduled Test 2022-01-14 00:00:00 Screening for malignant neoplasm of lung (procedure) [code = 099387436] [facility] Scheduled Test 2022-01-14 00:00:00 SHINGLES VACCINES (1 of 2) [code = SHINGLES VACCINES (1 of 2)] [facility] Scheduled Test 2022-01-14 00:00:00 Screening for malignant neoplasm of lung (procedure) [code = [id number]] [facility] Scheduled Test 2022-01-14 00:00:00 SHINGLES VACCINES (1 of 2) [code = SHINGLES VACCINES (1 of 2)] [facility] Scheduled Test 2013-12-15 00:00:00 PNEUMOCOCCAL VACCINE 0-64 YRS (2 - PCV) [code = PNEUMOCOCCAL VACCINE 0-64 YRS (2 - PCV)] [facility] Scheduled Test 2013-12-15 00:00:00 PNEUMOCOCCAL VACCINE 0-64 YRS (2 - PCV) [code = PNEUMOCOCCAL VACCINE 0-64 YRS (2 - PCV)] [facility] Scheduled Test 2013-12-15 00:00:00 PNEUMOCOCCAL VACCINE 0-64 YRS (2 - PCV) [code = PNEUMOCOCCAL VACCINE 0-64 YRS (2 - PCV)] [facility] Scheduled Test 2013-12-15 00:00:00 PNEUMOCOCCAL VACCINE 0-64 YRS (2 - PCV) [code = PNEUMOCOCCAL VACCINE 0-64 YRS (2 - PCV)] [facility] Scheduled Test 2013-12-15 00:00:00 Pneumococcal Vaccine: 0-64 Years (2 - PCV) [code = Pneumococcal Vaccine: 0-64 Years (2 - PCV)] [facility] Scheduled Test 2013-12-15 00:00:00 Pneumococcal Vaccine: 0-64 Years (2 - PCV) [code = Pneumococcal Vaccine: 0-64 Years (2 - PCV)] [facility] Scheduled Test 2013-12-15 00:00:00 Pneumococcal Vaccine: 0-64 Years (2 - PCV) [code = Pneumococcal Vaccine: 0-64 Years (2 - PCV)] [facility] Scheduled Test 2013-12-15 00:00:00 Pneumococcal Vaccine: 0-64 Years (2 - PCV) [code = Pneumococcal Vaccine: 0-64 Years (2 - PCV)] [facility] Scheduled Test 2013-12-15 00:00:00 Pneumococcal Vaccine: 0-64 Years (2 - PCV) [code = Pneumococcal Vaccine: 0-64 Years (2 - PCV)] [facility] Scheduled Test 2013-12-15 00:00:00 Pneumococcal Vaccine: 0-64 Years (2 - PCV) [code = Pneumococcal Vaccine: 0-64 Years (2 - PCV)] [facility] Scheduled Test 2013-12-15 00:00:00 Pneumococcal Vaccine: 0-64 Years (2 - PCV) [code = Pneumococcal Vaccine: 0-64 Years (2 - PCV)] [facility] Scheduled Test 2013-12-15 00:00:00 Pneumococcal Vaccine: 0-64 Years (2 - PCV) [code = Pneumococcal Vaccine: 0-64 Years (2 - PCV)] [facility] Scheduled Test 2013-12-15 00:00:00 Pneumococcal Vaccine: 0-64 Years (2 - PCV) [code = Pneumococcal Vaccine: 0-64 Years (2 - PCV)] [facility] Scheduled Test 2013-12-15 00:00:00 Pneumococcal Vaccine: 0-64 Years (2 - PCV) [code = Pneumococcal Vaccine: 0-64 Years (2 - PCV)] [facility] Scheduled Test 2013-12-15 00:00:00 Pneumococcal Vaccine: 0-64 Years (2 - PCV) [code = Pneumococcal Vaccine: 0-64 Years (2 - PCV)] [facility] Scheduled Test 2013-12-15 00:00:00 Pneumococcal Vaccine: 0-64 Years (2 - PCV) [code = Pneumococcal Vaccine: 0-64 Years (2 - PCV)] [facility] Scheduled Test 2013-12-15 00:00:00 Pneumococcal Vaccine: 0-64 Years (2 - PCV) [code = Pneumococcal Vaccine: 0-64 Years (2 - PCV)] [facility] Scheduled Test 2013-12-15 00:00:00 Pneumococcal Vaccine: 0-64 Years (2 - PCV) [code = Pneumococcal Vaccine: 0-64 Years (2 - PCV)] [facility] Scheduled Test 2013-12-15 00:00:00 Pneumococcal Vaccine: 0-64 Years (2 - PCV) [code = Pneumococcal Vaccine: 0-64 Years (2 - PCV)] [facility] Scheduled Test 2013-12-15 00:00:00 Pneumococcal Vaccine: 0-64 Years (2 - PCV) [code = Pneumococcal Vaccine: 0-64 Years (2 - PCV)] [facility] Scheduled Test 2013-12-15 00:00:00 Pneumococcal Vaccine: 0-64 Years (2 - PCV) [code = Pneumococcal Vaccine: 0-64 Years (2 - PCV)] [facility] Scheduled Test 2013-12-15 00:00:00 Pneumococcal Vaccine: 0-64 Years (2 - PCV) [code = Pneumococcal Vaccine: 0-64 Years (2 - PCV)] [facility] Scheduled Test 2013-12-15 00:00:00 Pneumococcal Vaccine: 0-64 Years (2 - PCV) [code = Pneumococcal Vaccine: 0-64 Years (2 - PCV)] [facility] Scheduled Test 2013-12-15 00:00:00 Pneumococcal Vaccine: 0-64 Years (2 - PCV) [code = Pneumococcal Vaccine: 0-64 Years (2 - PCV)] [facility] Scheduled Test 2013-12-15 00:00:00 Pneumococcal Vaccine: 0-64 Years (2 of 2 - PCV) [code = Pneumococcal Vaccine: 0-64 Years (2 of 2 - PCV)] [facility] Scheduled Test 2013-12-15 00:00:00 Pneumococcal Vaccine: 0-64 Years (2 of 2 - PCV) [code = Pneumococcal Vaccine: 0-64 Years (2 of 2 - PCV)] [facility] Scheduled Test 2013-12-15 00:00:00 Pneumococcal Vaccine: 0-64 Years (2 of 2 - PCV) [code = Pneumococcal Vaccine: 0-64 Years (2 of 2 - PCV)] [facility] Scheduled Test 2013-12-15 00:00:00 Pneumococcal Vaccine: 0-64 Years (2 - PCV) [code = Pneumococcal Vaccine: 0-64 Years (2 - PCV)] [facility] Scheduled Test 2013-12-15 00:00:00 Pneumococcal Vaccine: 0-64 Years (2 - PCV) [code = Pneumococcal Vaccine: 0-64 Years (2 - PCV)] [facility] Scheduled Test 2013-12-15 00:00:00 Pneumococcal Vaccine: 0-64 Years (2 - PCV) [code = Pneumococcal Vaccine: 0-64 Years (2 - PCV)] [facility] Scheduled Test 1993-01-14 00:00:00 Screening for malignant neoplasm of cervix (procedure) [code = [id number]] [facility] Scheduled Test 1993-01-14 00:00:00 Screening for malignant neoplasm of cervix (procedure) [code = 343552329] [facility] Scheduled Test 1993-01-14 00:00:00 Screening for malignant neoplasm of cervix (procedure) [code = 588017595] [facility] Scheduled Test 1993-01-14 00:00:00 Screening for malignant neoplasm of cervix (procedure) [code = 774144215] [facility] Scheduled Test 1993-01-14 00:00:00 Screening for malignant neoplasm of cervix (procedure) [code = 981318186] [facility] Scheduled Test 1993-01-14 00:00:00 Screening for malignant neoplasm of cervix (procedure) [code = 443716708] [facility] Scheduled Test 1993-01-14 00:00:00 Screening for malignant neoplasm of cervix (procedure) [code = 311875378] [facility] Scheduled Test 1993-01-14 00:00:00 Screening for malignant neoplasm of cervix (procedure) [code = 969975089] [facility] Scheduled Test 1993-01-14 00:00:00 Screening for malignant neoplasm of cervix (procedure) [code = 780502022] [facility] Scheduled Test 1993-01-14 00:00:00 Screening for malignant neoplasm of cervix (procedure) [code = 258452964] [facility] Scheduled Test 1993-01-14 00:00:00 Screening for malignant neoplasm of cervix (procedure) [code = 684508562] [facility] Scheduled Test 1993-01-14 00:00:00 Screening for malignant neoplasm of cervix (procedure) [code = 398818275] [facility] Scheduled Test 1993-01-14 00:00:00 Screening for malignant neoplasm of cervix (procedure) [code = 582010916] [facility] Scheduled Test 1993-01-14 00:00:00 Screening for malignant neoplasm of cervix (procedure) [code = 926664274] [facility] Scheduled Test 1993-01-14 00:00:00 Screening for malignant neoplasm of cervix (procedure) [code = 862270726] [facility] Scheduled Test 1993-01-14 00:00:00 Screening for malignant neoplasm of cervix (procedure) [code = 396724395] [facility] Scheduled Test 1993-01-14 00:00:00 Screening for malignant neoplasm of cervix (procedure) [code = 138405788] [facility] Scheduled Test 1993-01-14 00:00:00 Screening for malignant neoplasm of cervix (procedure) [code = 625971251] [facility] Scheduled Test 1993-01-14 00:00:00 Screening for malignant neoplasm of cervix (procedure) [code = 515417182] [facility] Scheduled Test 1993-01-14 00:00:00 Screening for malignant neoplasm of cervix (procedure) [code = 184336648] [facility] Scheduled Test 1993-01-14 00:00:00 Screening for malignant neoplasm of cervix (procedure) [code = 391212476] [facility] Scheduled Test 1993-01-14 00:00:00 Screening for malignant neoplasm of cervix (procedure) [code = 967727896] [facility] Scheduled Test 1993-01-14 00:00:00 Screening for malignant neoplasm of cervix (procedure) [code = 910284624] [facility] Scheduled Test 1993-01-14 00:00:00 Screening for malignant neoplasm of cervix (procedure) [code = 110269431] [facility] Scheduled Test 1993-01-14 00:00:00 Screening for malignant neoplasm of cervix (procedure) [code = 955125173] [facility] Scheduled Test 1993-01-14 00:00:00 Screening for malignant neoplasm of cervix (procedure) [code = 603705861] [facility] Scheduled Test 1993-01-14 00:00:00 Screening for malignant neoplasm of cervix (procedure) [code = 753254044] [facility] Scheduled Test 1993-01-14 00:00:00 Screening for malignant neoplasm of cervix (procedure) [code = 311878768] [facility] Scheduled Test 1993-01-14 00:00:00 Screening for malignant neoplasm of cervix (procedure) [code = 360802177] [facility] Scheduled Test 1993-01-14 00:00:00 Screening for malignant neoplasm of cervix (procedure) [code = 580590859] [facility] Scheduled Test 1993-01-14 00:00:00 Screening for malignant neoplasm of cervix (procedure) [code = 275362808] [facility] Scheduled Test 1993-01-14 00:00:00 Screening for malignant neoplasm of cervix (procedure) [code = 641161187] [facility] Scheduled Test 1993-01-14 00:00:00 Screening for malignant neoplasm of cervix (procedure) [code = 708236886] [facility] Scheduled Test 1993-01-14 00:00:00 Screening for malignant neoplasm of cervix (procedure) [code = 706546147] [facility] Scheduled Test 1993-01-14 00:00:00 Screening for malignant neoplasm of cervix (procedure) [code = 136277617] [facility] Scheduled Test 1993-01-14 00:00:00 Screening for malignant neoplasm of cervix (procedure) [code = 494773141] [facility] Scheduled Test 1993-01-14 00:00:00 Screening for malignant neoplasm of cervix (procedure) [code = 463472939] [facility] Scheduled Test 1993-01-14 00:00:00 Screening for malignant neoplasm of cervix (procedure) [code = 766882974] [facility] Scheduled Test 1993-01-14 00:00:00 Screening for malignant neoplasm of cervix (procedure) [code = 808817771] [facility] Scheduled Test 1993-01-14 00:00:00 Screening for malignant neoplasm of cervix (procedure) [code = 587521254] [facility] Scheduled Test 1993-01-14 00:00:00 Screening for malignant neoplasm of cervix (procedure) [code = 588983218] [facility] Scheduled Test 1993-01-14 00:00:00 Screening for malignant neoplasm of cervix (procedure) [code = 087778088] [facility] Scheduled Test 1993-01-14 00:00:00 Screening for malignant neoplasm of cervix (procedure) [code = 929586682] [facility] Scheduled Test 1993-01-14 00:00:00 Screening for malignant neoplasm of cervix (procedure) [code = 351138139] [facility] Scheduled Test 1993-01-14 00:00:00 Screening for malignant neoplasm of cervix (procedure) [code = 043794540] [facility] Scheduled Test 1993-01-14 00:00:00 Screening for malignant neoplasm of cervix (procedure) [code = 851247755] [facility] Scheduled Test 1993-01-14 00:00:00 Screening for malignant neoplasm of cervix (procedure) [code = 950611265] [facility] Scheduled Test 1993-01-14 00:00:00 Screening for malignant neoplasm of cervix (procedure) [code = 331300376] [facility] Scheduled Test 1993-01-14 00:00:00 Screening for malignant neoplasm of cervix (procedure) [code = 102816981] [facility] Scheduled Test 1993-01-14 00:00:00 Screening for malignant neoplasm of cervix (procedure) [code = 494542898] [facility] Scheduled Test 1993-01-14 00:00:00 Screening for malignant neoplasm of cervix (procedure) [code = 585811828] [facility] Scheduled Test 1993-01-14 00:00:00 Screening for malignant neoplasm of cervix (procedure) [code = 065029089] [facility] Scheduled Test 1993-01-14 00:00:00 Screening for malignant neoplasm of cervix (procedure) [code = 066603976] [facility] Scheduled Test 1993-01-14 00:00:00 Screening for malignant neoplasm of cervix (procedure) [code = 825511876] [facility] Scheduled Test 1991-01-14 00:00:00 DTAP/TDAP/TD VACCINES (1 - Tdap) [code = DTAP/TDAP/TD VACCINES (1 - Tdap)] [facility] Scheduled Test 1991-01-14 00:00:00 DTAP/TDAP/TD VACCINES (1 - Tdap) [code = DTAP/TDAP/TD VACCINES (1 - Tdap)] [facility] Scheduled Test 1991-01-14 00:00:00 DTAP/TDAP/TD VACCINES (1 - Tdap) [code = DTAP/TDAP/TD VACCINES (1 - Tdap)] [facility] Scheduled Test 1991-01-14 00:00:00 DTAP/TDAP/TD VACCINES (1 - Tdap) [code = DTAP/TDAP/TD VACCINES (1 - Tdap)] [facility] Scheduled Test 1991-01-14 00:00:00 DTAP/TDAP/TD VACCINES (1 - Tdap) [code = DTAP/TDAP/TD VACCINES (1 - Tdap)] [facility] Scheduled Test 1991-01-14 00:00:00 DTAP/TDAP/TD VACCINES (1 - Tdap) [code = DTAP/TDAP/TD VACCINES (1 - Tdap)] [facility] Scheduled Test 1991-01-14 00:00:00 DTAP/TDAP/TD VACCINES (1 - Tdap) [code = DTAP/TDAP/TD VACCINES (1 - Tdap)] [facility] Scheduled Test 1991-01-14 00:00:00 DTAP/TDAP/TD VACCINES (1 - Tdap) [code = DTAP/TDAP/TD VACCINES (1 - Tdap)] [facility] Scheduled Test 1991-01-14 00:00:00 DTAP/TDAP/TD VACCINES (1 - Tdap) [code = DTAP/TDAP/TD VACCINES (1 - Tdap)] [facility] Scheduled Test 1991-01-14 00:00:00 DTAP/TDAP/TD VACCINES (1 - Tdap) [code = DTAP/TDAP/TD VACCINES (1 - Tdap)] [facility] Scheduled Test 1991-01-14 00:00:00 DTAP/TDAP/TD VACCINES (1 - Tdap) [code = DTAP/TDAP/TD VACCINES (1 - Tdap)] [facility] Scheduled Test 1991-01-14 00:00:00 DTAP/TDAP/TD VACCINES (1 - Tdap) [code = DTAP/TDAP/TD VACCINES (1 - Tdap)] [facility] Scheduled Test 1991-01-14 00:00:00 DTAP/TDAP/TD VACCINES (1 - Tdap) [code = DTAP/TDAP/TD VACCINES (1 - Tdap)] [facility] Scheduled Test 1991-01-14 00:00:00 DTAP/TDAP/TD VACCINES (1 - Tdap) [code = DTAP/TDAP/TD VACCINES (1 - Tdap)] [facility] Scheduled Test 1991-01-14 00:00:00 DTAP/TDAP/TD VACCINES (1 - Tdap) [code = DTAP/TDAP/TD VACCINES (1 - Tdap)] [facility] Scheduled Test 1991-01-14 00:00:00 DTAP/TDAP/TD VACCINES (1 - Tdap) [code = DTAP/TDAP/TD VACCINES (1 - Tdap)] [facility] Scheduled Test 1991-01-14 00:00:00 DTAP/TDAP/TD VACCINES (1 - Tdap) [code = DTAP/TDAP/TD VACCINES (1 - Tdap)] [facility] Scheduled Test 1991-01-14 00:00:00 DTAP/TDAP/TD VACCINES (1 - Tdap) [code = DTAP/TDAP/TD VACCINES (1 - Tdap)] [facility] Scheduled Test 1991-01-14 00:00:00 DTAP/TDAP/TD VACCINES (1 - Tdap) [code = DTAP/TDAP/TD VACCINES (1 - Tdap)] [facility] Scheduled Test 1991-01-14 00:00:00 DTAP/TDAP/TD VACCINES (1 - Tdap) [code = DTAP/TDAP/TD VACCINES (1 - Tdap)] [facility] Scheduled Test 1991-01-14 00:00:00 DTAP/TDAP/TD VACCINES (1 - Tdap) [code = DTAP/TDAP/TD VACCINES (1 - Tdap)] [facility] Scheduled Test 1991-01-14 00:00:00 DTAP/TDAP/TD VACCINES (1 - Tdap) [code = DTAP/TDAP/TD VACCINES (1 - Tdap)] [facility] Scheduled Test 1991-01-14 00:00:00 DTAP/TDAP/TD VACCINES (1 - Tdap) [code = DTAP/TDAP/TD VACCINES (1 - Tdap)] [facility] Scheduled Test 1991-01-14 00:00:00 DTAP/TDAP/TD VACCINES (1 - Tdap) [code = DTAP/TDAP/TD VACCINES (1 - Tdap)] [facility] Scheduled Test 1991-01-14 00:00:00 DTAP/TDAP/TD VACCINES (1 - Tdap) [code = DTAP/TDAP/TD VACCINES (1 - Tdap)] [facility] Scheduled Test 1991-01-14 00:00:00 DTAP/TDAP/TD VACCINES (1 - Tdap) [code = DTAP/TDAP/TD VACCINES (1 - Tdap)] [facility] Scheduled Test 1991-01-14 00:00:00 DTAP/TDAP/TD VACCINES (1 - Tdap) [code = DTAP/TDAP/TD VACCINES (1 - Tdap)] [facility] Scheduled Test 1991-01-14 00:00:00 DTAP/TDAP/TD VACCINES (1 - Tdap) [code = DTAP/TDAP/TD VACCINES (1 - Tdap)] [facility] Scheduled Test 1991-01-14 00:00:00 DTAP/TDAP/TD VACCINES (1 - Tdap) [code = DTAP/TDAP/TD VACCINES (1 - Tdap)] [facility] Scheduled Test 1991-01-14 00:00:00 DTAP/TDAP/TD VACCINES (1 - Tdap) [code = DTAP/TDAP/TD VACCINES (1 - Tdap)] [facility] Scheduled Test 1991-01-14 00:00:00 DTAP/TDAP/TD VACCINES (1 - Tdap) [code = DTAP/TDAP/TD VACCINES (1 - Tdap)] [facility] Scheduled Test 1991-01-14 00:00:00 DTAP/TDAP/TD VACCINES (1 - Tdap) [code = DTAP/TDAP/TD VACCINES (1 - Tdap)] [facility] Scheduled Test 1991-01-14 00:00:00 DTAP/TDAP/TD VACCINES (1 - Tdap) [code = DTAP/TDAP/TD VACCINES (1 - Tdap)] [facility] Scheduled Test 1991-01-14 00:00:00 DTAP/TDAP/TD VACCINES (1 - Tdap) [code = DTAP/TDAP/TD VACCINES (1 - Tdap)] [facility] Scheduled Test 1991-01-14 00:00:00 DTAP/TDAP/TD VACCINES (1 - Tdap) [code = DTAP/TDAP/TD VACCINES (1 - Tdap)] [facility] Scheduled Test 1991-01-14 00:00:00 DTAP/TDAP/TD VACCINES (1 - Tdap) [code = DTAP/TDAP/TD VACCINES (1 - Tdap)] [facility] Scheduled Test 1991-01-14 00:00:00 DTAP/TDAP/TD VACCINES (1 - Tdap) [code = DTAP/TDAP/TD VACCINES (1 - Tdap)] [facility] Scheduled Test 1991-01-14 00:00:00 DTAP/TDAP/TD VACCINES (1 - Tdap) [code = DTAP/TDAP/TD VACCINES (1 - Tdap)] [facility] Scheduled Test 1991-01-14 00:00:00 DTAP/TDAP/TD VACCINES (1 - Tdap) [code = DTAP/TDAP/TD VACCINES (1 - Tdap)] [facility] Scheduled Test 1991-01-14 00:00:00 DTAP/TDAP/TD VACCINES (1 - Tdap) [code = DTAP/TDAP/TD VACCINES (1 - Tdap)] [facility] Scheduled Test 1991-01-14 00:00:00 DTAP/TDAP/TD VACCINES (1 - Tdap) [code = DTAP/TDAP/TD VACCINES (1 - Tdap)] [facility] Scheduled Test 1991-01-14 00:00:00 DTAP/TDAP/TD VACCINES (1 - Tdap) [code = DTAP/TDAP/TD VACCINES (1 - Tdap)] [facility] Scheduled Test 1991-01-14 00:00:00 DTAP/TDAP/TD VACCINES (1 - Tdap) [code = DTAP/TDAP/TD VACCINES (1 - Tdap)] [facility] Scheduled Test 1991-01-14 00:00:00 DTAP/TDAP/TD VACCINES (1 - Tdap) [code = DTAP/TDAP/TD VACCINES (1 - Tdap)] [facility] Scheduled Test 1991-01-14 00:00:00 DTAP/TDAP/TD VACCINES (1 - Tdap) [code = DTAP/TDAP/TD VACCINES (1 - Tdap)] [facility] Scheduled Test 1991-01-14 00:00:00 DTAP/TDAP/TD VACCINES (1 - Tdap) [code = DTAP/TDAP/TD VACCINES (1 - Tdap)] [facility] Scheduled Test 1991-01-14 00:00:00 DTAP/TDAP/TD VACCINES (1 - Tdap) [code = DTAP/TDAP/TD VACCINES (1 - Tdap)] [facility] Scheduled Test 1991-01-14 00:00:00 DTAP/TDAP/TD VACCINES (1 - Tdap) [code = DTAP/TDAP/TD VACCINES (1 - Tdap)] [facility] Scheduled Test 1991-01-14 00:00:00 DTAP/TDAP/TD VACCINES (1 - Tdap) [code = DTAP/TDAP/TD VACCINES (1 - Tdap)] [facility] Scheduled Test 1991-01-14 00:00:00 DTAP/TDAP/TD VACCINES (1 - Tdap) [code = DTAP/TDAP/TD VACCINES (1 - Tdap)] [facility] Scheduled Test 1991-01-14 00:00:00 DTAP/TDAP/TD VACCINES (1 - Tdap) [code = DTAP/TDAP/TD VACCINES (1 - Tdap)] [facility] Scheduled Test 1991-01-14 00:00:00 DTAP/TDAP/TD VACCINES (1 - Tdap) [code = DTAP/TDAP/TD VACCINES (1 - Tdap)] [facility] Scheduled Test 1991-01-14 00:00:00 DTAP/TDAP/TD VACCINES (1 - Tdap) [code = DTAP/TDAP/TD VACCINES (1 - Tdap)] [facility] Scheduled Test 1991-01-14 00:00:00 DTAP/TDAP/TD VACCINES (1 - Tdap) [code = DTAP/TDAP/TD VACCINES (1 - Tdap)] [facility] Scheduled Test 1990-01-14 00:00:00 HEPATITIS C SCREENING [code = HEPATITIS C SCREENING] [facility] Scheduled Test 1990-01-14 00:00:00 HEPATITIS C SCREENING [code = HEPATITIS C SCREENING] [facility] Scheduled Test 1990-01-14 00:00:00 HEPATITIS C SCREENING [code = HEPATITIS C SCREENING] [facility] Scheduled Test 1990-01-14 00:00:00 HEPATITIS C SCREENING [code = HEPATITIS C SCREENING] [facility] Scheduled Test 1990-01-14 00:00:00 HEPATITIS C SCREENING [code = HEPATITIS C SCREENING] [facility] Scheduled Test 1990-01-14 00:00:00 HEPATITIS C SCREENING [code = HEPATITIS C SCREENING] [facility] Scheduled Test 1990-01-14 00:00:00 HEPATITIS C SCREENING [code = HEPATITIS C SCREENING] [facility] Scheduled Test 1990-01-14 00:00:00 HEPATITIS C SCREENING [code = HEPATITIS C SCREENING] [facility] Scheduled Test 1990-01-14 00:00:00 HEPATITIS C SCREENING [code = HEPATITIS C SCREENING] [facility] Scheduled Test 1990-01-14 00:00:00 HEPATITIS C SCREENING [code = HEPATITIS C SCREENING] [facility] Scheduled Test 1990-01-14 00:00:00 HEPATITIS C SCREENING [code = HEPATITIS C SCREENING] [facility] Scheduled Test 1990-01-14 00:00:00 HEPATITIS C SCREENING [code = HEPATITIS C SCREENING] [facility] Scheduled Test 1990-01-14 00:00:00 HEPATITIS C SCREENING [code = HEPATITIS C SCREENING] [facility] [facility] 1990-01-14 00:00:00 HEPATITIS C SCREENING [code = HEPATITIS C SCREENING] [facility] Scheduled Test 1990-01-14 00:00:00 HEPATITIS C SCREENING [code = HEPATITIS C SCREENING] [facility] Scheduled Test 1990-01-14 00:00:00 HEPATITIS C SCREENING [code = HEPATITIS C SCREENING] [facility] Scheduled Test 1990-01-14 00:00:00 HEPATITIS C SCREENING [code = HEPATITIS C SCREENING] [facility] Scheduled Test 1990-01-14 00:00:00 HEPATITIS C SCREENING [code = HEPATITIS C SCREENING] [facility] Scheduled Test 1990-01-14 00:00:00 HEPATITIS C SCREENING [code = HEPATITIS C SCREENING] [facility] Scheduled Test 1990-01-14 00:00:00 HEPATITIS C SCREENING [code = HEPATITIS C SCREENING] [facility] Scheduled Test 1990-01-14 00:00:00 HEPATITIS C SCREENING [code = HEPATITIS C SCREENING] [facility] Scheduled Test 1990-01-14 00:00:00 HEPATITIS C SCREENING [code = HEPATITIS C SCREENING] [facility] Scheduled Test 1990-01-14 00:00:00 HEPATITIS C SCREENING [code = HEPATITIS C SCREENING] [facility] Scheduled Test 1990-01-14 00:00:00 HEPATITIS C SCREENING [code = HEPATITIS C SCREENING] [facility] Scheduled Test 1990-01-14 00:00:00 HEPATITIS C SCREENING [code = HEPATITIS C SCREENING] [facility] Scheduled Test 1990-01-14 00:00:00 HEPATITIS C SCREENING [code = HEPATITIS C SCREENING] [facility] Scheduled Test 1990-01-14 00:00:00 HEPATITIS C SCREENING [code = HEPATITIS C SCREENING] [facility] Scheduled Test 1990-01-14 00:00:00 HEPATITIS C SCREENING [code = HEPATITIS C SCREENING] [facility] Scheduled Test 1990-01-14 00:00:00 HEPATITIS C SCREENING [code = HEPATITIS C SCREENING] [facility] Scheduled Test 1990-01-14 00:00:00 HEPATITIS C SCREENING [code = HEPATITIS C SCREENING] [facility] Scheduled Test 1990-01-14 00:00:00 HEPATITIS C SCREENING [code = HEPATITIS C SCREENING] [facility] Scheduled Test 1990-01-14 00:00:00 HEPATITIS C SCREENING [code = HEPATITIS C SCREENING] [facility] Scheduled Test 1990-01-14 00:00:00 HEPATITIS C SCREENING [code = HEPATITIS C SCREENING] [facility] Scheduled Test 1990-01-14 00:00:00 HEPATITIS C SCREENING [code = HEPATITIS C SCREENING] [facility] Scheduled Test 1990-01-14 00:00:00 HEPATITIS C SCREENING [code = HEPATITIS C SCREENING] [facility] Scheduled Test 1990-01-14 00:00:00 HEPATITIS C SCREENING [code = HEPATITIS C SCREENING] [facility] Scheduled Test 1990-01-14 00:00:00 HEPATITIS C SCREENING [code = HEPATITIS C SCREENING] [facility] Scheduled Test 1990-01-14 00:00:00 HEPATITIS C SCREENING [code = HEPATITIS C SCREENING] [facility] Scheduled Test 1990-01-14 00:00:00 HEPATITIS C SCREENING [code = HEPATITIS C SCREENING] [facility] Scheduled Test 1990-01-14 00:00:00 HEPATITIS C SCREENING [code = HEPATITIS C SCREENING] [facility] Scheduled Test 1990-01-14 00:00:00 HEPATITIS C SCREENING [code = HEPATITIS C SCREENING] [facility] Scheduled Test 1990-01-14 00:00:00 HEPATITIS C SCREENING [code = HEPATITIS C SCREENING] [facility] Scheduled Test 1990-01-14 00:00:00 HEPATITIS C SCREENING [code = HEPATITIS C SCREENING] [facility] Scheduled Test 1990-01-14 00:00:00 HEPATITIS C SCREENING [code = HEPATITIS C SCREENING] [facility] Scheduled Test 1990-01-14 00:00:00 HEPATITIS C SCREENING [code = HEPATITIS C SCREENING] [facility] Scheduled Test 1990-01-14 00:00:00 HEPATITIS C SCREENING [code = HEPATITIS C SCREENING] [facility] Scheduled Test 1990-01-14 00:00:00 HEPATITIS C SCREENING [code = HEPATITIS C SCREENING] [facility] Scheduled Test 1990-01-14 00:00:00 HEPATITIS C SCREENING [code = HEPATITIS C SCREENING] [facility] Scheduled Test 1990-01-14 00:00:00 HEPATITIS C SCREENING [code = HEPATITIS C SCREENING] [facility] Scheduled Test 1990-01-14 00:00:00 HEPATITIS C SCREENING [code = HEPATITIS C SCREENING] [facility] Scheduled Test 1990-01-14 00:00:00 HEPATITIS C SCREENING [code = HEPATITIS C SCREENING] [facility] Scheduled Test 1990-01-14 00:00:00 HEPATITIS C SCREENING [code = HEPATITIS C SCREENING] [facility] Scheduled Test 1990-01-14 00:00:00 HEPATITIS C SCREENING [code = HEPATITIS C SCREENING] [facility] Scheduled Test 1990-01-14 00:00:00 HEPATITIS C SCREENING [code = HEPATITIS C SCREENING] [facility] Scheduled Test 1987-01-14 00:00:00 Human immunodeficiency virus screening (procedure) [code = 718696753] [facility] Scheduled Test 1987-01-14 00:00:00 Human immunodeficiency virus screening (procedure) [code = [id number]] [facility] Scheduled Test 1984 00:00:00 Tobacco Cessation Counseling and Screening (12+) [code = Tobacco Cessation Counseling and Screening (12+)] [facility] Scheduled Test 1984 00:00:00 Tobacco Cessation Counseling and Screening (12+) [code = Tobacco Cessation Counseling and Screening (12+)] [facility] Scheduled Test 1984 00:00:00 Tobacco Cessation Counseling and Screening (12+) [code = Tobacco Cessation Counseling and Screening (12+)] [facility] Scheduled Test 1984 00:00:00 Tobacco Cessation Counseling and Screening (12+) [code = Tobacco Cessation Counseling and Screening (12+)] [facility] Scheduled Test 1984 00:00:00 Tobacco Cessation Counseling and Screening (12+) [code = Tobacco Cessation Counseling and Screening (12+)] [facility] Scheduled Test 1984 00:00:00 Tobacco Cessation Counseling and Screening (12+) [code = Tobacco Cessation Counseling and Screening (12+)] [facility] Scheduled Test 1984 00:00:00 Tobacco Cessation Counseling and Screening (12+) [code = Tobacco Cessation Counseling and Screening (12+)] [facility] Scheduled Test 1984 00:00:00 Tobacco Cessation Counseling and Screening (12+) [code = Tobacco Cessation Counseling and Screening (12+)] [facility] Scheduled Test 1984 00:00:00 Tobacco Cessation Counseling and Screening (12+) [code = Tobacco Cessation Counseling and Screening (12+)] [facility] Scheduled Test 1984 00:00:00 Tobacco Cessation Counseling and Screening (12+) [code = Tobacco Cessation Counseling and Screening (12+)] [facility] Scheduled Test 1984 00:00:00 Tobacco Cessation Counseling and Screening (12+) [code = Tobacco Cessation Counseling and Screening (12+)] [facility] Scheduled Test 1984 00:00:00 Tobacco Cessation Counseling and Screening (12+) [code = Tobacco Cessation Counseling and Screening (12+)] [facility] Scheduled Test 1984 00:00:00 Tobacco Cessation Counseling and Screening (12+) [code = Tobacco Cessation Counseling and Screening (12+)] [facility] Scheduled Test 1984 00:00:00 Tobacco Cessation Counseling and Screening (12+) [code = Tobacco Cessation Counseling and Screening (12+)] [facility] Scheduled Test 1984 00:00:00 Tobacco Cessation Counseling and Screening (12+) [code = Tobacco Cessation Counseling and Screening (12+)] [facility] Scheduled Test 1984 00:00:00 Tobacco Cessation Counseling and Screening (12+) [code = Tobacco Cessation Counseling and Screening (12+)] [facility] Scheduled Test 1984 00:00:00 Tobacco Cessation Counseling and Screening (12+) [code = Tobacco Cessation Counseling and Screening (12+)] [facility] Scheduled Test 1984 00:00:00 Tobacco Cessation Counseling and Screening (12+) [code = Tobacco Cessation Counseling and Screening (12+)] [facility] Scheduled Test 1984 00:00:00 Tobacco Cessation Counseling and Screening (12+) [code = Tobacco Cessation Counseling and Screening (12+)] [facility] Scheduled Test 1984 00:00:00 Tobacco Cessation Counseling and Screening (12+) [code = Tobacco Cessation Counseling and Screening (12+)] [facility] Scheduled Test 1984 00:00:00 Tobacco Cessation Counseling and Screening (12+) [code = Tobacco Cessation Counseling and Screening (12+)] [facility] Scheduled Test 1984 00:00:00 Tobacco Cessation Counseling and Screening (12+) [code = Tobacco Cessation Counseling and Screening (12+)] [facility] Scheduled Test 1984 00:00:00 Tobacco Cessation Counseling and Screening (12+) [code = Tobacco Cessation Counseling and Screening (12+)] [facility] Scheduled Test 1972 00:00:00 Screening for malignant neoplasm of breast (procedure) [code = 907746147] [facility] Scheduled Test 1972 00:00:00 CT Colonography (combo) [code = CT Colonography (combo)] [facility] Scheduled Test 1972 00:00:00 Screening for malignant neoplasm of colon (procedure) [code = 156213758] [facility] Scheduled Test 1972 00:00:00 Screening for malignant neoplasm of colon (procedure) [code = 869484434] [facility] Scheduled Test 1972 00:00:00 Screening for malignant neoplasm of colon (procedure) [code = 309968982] [facility] Scheduled Test 1972 00:00:00 Screening for malignant neoplasm of colon (procedure) [code = 741209909] [facility] Scheduled Test 1972 00:00:00 Sigmoidoscopy [code = Sigmoidoscopy] [facility] Scheduled Test 1972 00:00:00 Screening for malignant neoplasm of breast (procedure) [code = 781436914] [facility] Scheduled Test 1972 00:00:00 CT Colonography (combo) [code = CT Colonography (combo)] [facility] Scheduled Test 1972 00:00:00 Screening for malignant neoplasm of colon (procedure) [code = 408681354] [facility] Scheduled Test 1972 00:00:00 Screening for malignant neoplasm of colon (procedure) [code = 366054268] [facility] Scheduled Test 1972 00:00:00 Screening for malignant neoplasm of colon (procedure) [code = 160749510] [facility] Scheduled Test 1972 00:00:00 Screening for malignant neoplasm of colon (procedure) [code = 429178113] [facility] Scheduled Test 1972 00:00:00 Sigmoidoscopy [code = Sigmoidoscopy] [facility] Scheduled Test 1972 00:00:00 Screening for malignant neoplasm of breast (procedure) [code = 042094291] [facility] Scheduled Test 1972 00:00:00 CT Colonography (combo) [code = CT Colonography (combo)] [facility] Scheduled Test 1972 00:00:00 Screening for malignant neoplasm of colon (procedure) [code = 742165122] [facility] Scheduled Test 1972 00:00:00 Screening for malignant neoplasm of colon (procedure) [code = 471655952] [facility] Scheduled Test 1972 00:00:00 Screening for malignant neoplasm of colon (procedure) [code = 667859328] [facility] Scheduled Test 1972 00:00:00 Screening for malignant neoplasm of colon (procedure) [code = 753637942] [facility] Scheduled Test 1972 00:00:00 Sigmoidoscopy [code = Sigmoidoscopy] [facility] Scheduled Test 1972 00:00:00 Screening for malignant neoplasm of breast (procedure) [code = 108980154] [facility] Scheduled Test 1972 00:00:00 CT Colonography (combo) [code = CT Colonography (combo)] [facility] Scheduled Test 1972 00:00:00 Screening for malignant neoplasm of colon (procedure) [code = 681380713] [facility] Scheduled Test 1972 00:00:00 Screening for malignant neoplasm of colon (procedure) [code = 626090690] [facility] Scheduled Test 1972 00:00:00 Screening for malignant neoplasm of colon (procedure) [code = 190774367] [facility] Scheduled Test 1972 00:00:00 Screening for malignant neoplasm of colon (procedure) [code = 984012428] [facility] Scheduled Test 1972 00:00:00 Sigmoidoscopy [code = Sigmoidoscopy] [facility] Scheduled Test 1972 00:00:00 Screening for malignant neoplasm of breast (procedure) [code = 296865045] [facility] Scheduled Test 1972 00:00:00 CT Colonography (combo) [code = CT Colonography (combo)] [facility] Scheduled Test 1972 00:00:00 Screening for malignant neoplasm of colon (procedure) [code = 967877014] [facility] Scheduled Test 1972 00:00:00 Screening for malignant neoplasm of colon (procedure) [code = 716990447] [facility] Scheduled Test 1972 00:00:00 Screening for malignant neoplasm of colon (procedure) [code = 903167170] [facility] Scheduled Test 1972 00:00:00 Screening for malignant neoplasm of colon (procedure) [code = 553552772] [facility] Scheduled Test 1972 00:00:00 Sigmoidoscopy [code = Sigmoidoscopy] [facility] Scheduled Test 1972 00:00:00 Screening for malignant neoplasm of breast (procedure) [code = 720331374] [facility] Scheduled Test 1972 00:00:00 CT Colonography (combo) [code = CT Colonography (combo)] [facility] Scheduled Test 1972 00:00:00 Screening for malignant neoplasm of colon (procedure) [code = 068051567] [facility] Scheduled Test 1972 00:00:00 Screening for malignant neoplasm of colon (procedure) [code = 901696344] [facility] Scheduled Test 1972 00:00:00 Screening for malignant neoplasm of colon (procedure) [code = 826315912] [facility] Scheduled Test 1972 00:00:00 Screening for malignant neoplasm of colon (procedure) [code = 224051309] [facility] Scheduled Test 1972 00:00:00 Sigmoidoscopy [code = Sigmoidoscopy] [facility] Scheduled Test 1972 00:00:00 Screening for malignant neoplasm of breast (procedure) [code = 223780071] [facility] Scheduled Test 1972 00:00:00 CT Colonography (combo) [code = CT Colonography (combo)] [facility] Scheduled Test 1972 00:00:00 Screening for malignant neoplasm of colon (procedure) [code = 345231246] [facility] Scheduled Test 1972 00:00:00 Screening for malignant neoplasm of colon (procedure) [code = 602600000] [facility] Scheduled Test 1972 00:00:00 Screening for malignant neoplasm of colon (procedure) [code = 429973443] [facility] Scheduled Test 1972 00:00:00 Screening for malignant neoplasm of colon (procedure) [code = 919668370] [facility] Scheduled Test 1972 00:00:00 Sigmoidoscopy [code = Sigmoidoscopy] [facility] Scheduled Test 1972 00:00:00 Screening for malignant neoplasm of breast (procedure) [code = 472911961] [facility] Scheduled Test 1972 00:00:00 CT Colonography (combo) [code = CT Colonography (combo)] [facility] Scheduled Test 1972 00:00:00 Screening for malignant neoplasm of colon (procedure) [code = 691040468] [facility] Scheduled Test 1972 00:00:00 Screening for malignant neoplasm of colon (procedure) [code = 905708609] [facility] Scheduled Test 1972 00:00:00 Screening for malignant neoplasm of colon (procedure) [code = 361819119] [facility] Scheduled Test 1972 00:00:00 Screening for malignant neoplasm of colon (procedure) [code = 286796226] [facility] Scheduled Test 1972 00:00:00 Sigmoidoscopy [code = Sigmoidoscopy] [facility] Scheduled Test 1972 00:00:00 Screening for malignant neoplasm of breast (procedure) [code = 059644851] [facility] Scheduled Test 1972 00:00:00 CT Colonography (combo) [code = CT Colonography (combo)] [facility] Scheduled Test 1972 00:00:00 Screening for malignant neoplasm of colon (procedure) [code = 323380393] [facility] Scheduled Test 1972 00:00:00 Screening for malignant neoplasm of colon (procedure) [code = 347952041] [facility] Scheduled Test 1972 00:00:00 Screening for malignant neoplasm of colon (procedure) [code = 386787592] [facility] Scheduled Test 1972 00:00:00 Screening for malignant neoplasm of colon (procedure) [code = 089036382] [facility] Scheduled Test 1972 00:00:00 Sigmoidoscopy [code = Sigmoidoscopy] [facility] Scheduled Test 1972 00:00:00 Screening for malignant neoplasm of breast (procedure) [code = 022179770] [facility] Scheduled Test 1972 00:00:00 CT Colonography (combo) [code = CT Colonography (combo)] [facility] Scheduled Test 1972 00:00:00 Screening for malignant neoplasm of colon (procedure) [code = 407799536] [facility] Scheduled Test 1972 00:00:00 Screening for malignant neoplasm of colon (procedure) [code = 394211636] [facility] Scheduled Test 1972 00:00:00 Screening for malignant neoplasm of colon (procedure) [code = 985717694] [facility] Scheduled Test 1972 00:00:00 Screening for malignant neoplasm of colon (procedure) [code = 163990786] [facility] Scheduled Test 1972 00:00:00 Sigmoidoscopy [code = Sigmoidoscopy] [facility] Scheduled Test 1972 00:00:00 Screening for malignant neoplasm of breast (procedure) [code = 281887764] [facility] Scheduled Test 1972 00:00:00 CT Colonography (combo) [code = CT Colonography (combo)] [facility] Scheduled Test 1972 00:00:00 Screening for malignant neoplasm of colon (procedure) [code = 119145041] [facility] Scheduled Test 1972 00:00:00 Screening for malignant neoplasm of colon (procedure) [code = 995420326] [facility] Scheduled Test 1972 00:00:00 Screening for malignant neoplasm of colon (procedure) [code = 046339238] [facility] Scheduled Test 1972 00:00:00 Screening for malignant neoplasm of colon (procedure) [code = 998460426] [facility] Scheduled Test 1972 00:00:00 Sigmoidoscopy [code = Sigmoidoscopy] [facility] Scheduled Test 1972 00:00:00 Screening for malignant neoplasm of breast (procedure) [code = 445691342] [facility] Scheduled Test 1972 00:00:00 CT Colonography (combo) [code = CT Colonography (combo)] [facility] Scheduled Test 1972 00:00:00 Screening for malignant neoplasm of colon (procedure) [code = 288623526] [facility] Scheduled Test 1972 00:00:00 Screening for malignant neoplasm of colon (procedure) [code = 943257006] [facility] Scheduled Test 1972 00:00:00 Screening for malignant neoplasm of colon (procedure) [code = 949562904] [facility] Scheduled Test 1972 00:00:00 Screening for malignant neoplasm of colon (procedure) [code = 186581191] [facility] Scheduled Test 1972 00:00:00 Sigmoidoscopy [code = Sigmoidoscopy] [facility] Scheduled Test 1972 00:00:00 Screening for malignant neoplasm of breast (procedure) [code = 822599846] [facility] Scheduled Test 1972 00:00:00 CT Colonography (combo) [code = CT Colonography (combo)] [facility] Scheduled Test 1972 00:00:00 Screening for malignant neoplasm of colon (procedure) [code = 001912625] [facility] Scheduled Test 1972 00:00:00 Screening for malignant neoplasm of colon (procedure) [code = 120940164] [facility] Scheduled Test 1972 00:00:00 Screening for malignant neoplasm of colon (procedure) [code = 221018055] [facility] Scheduled Test 1972 00:00:00 Screening for malignant neoplasm of colon (procedure) [code = 134358004] [facility] Scheduled Test 1972 00:00:00 Sigmoidoscopy [code = Sigmoidoscopy] [facility] Scheduled Test 1972 00:00:00 Screening for malignant neoplasm of breast (procedure) [code = 523041302] [facility] Scheduled Test 1972 00:00:00 CT Colonography (combo) [code = CT Colonography (combo)] [facility] Scheduled Test 1972 00:00:00 Screening for malignant neoplasm of colon (procedure) [code = 571716805] [facility] Scheduled Test 1972 00:00:00 Screening for malignant neoplasm of colon (procedure) [code = 942792142] [facility] Scheduled Test 1972 00:00:00 Screening for malignant neoplasm of colon (procedure) [code = 148392662] [facility] Scheduled Test 1972 00:00:00 Screening for malignant neoplasm of colon (procedure) [code = 711538141] [facility] Scheduled Test 1972 00:00:00 Sigmoidoscopy [code = Sigmoidoscopy] [facility] Scheduled Test 1972 00:00:00 Screening for malignant neoplasm of breast (procedure) [code = 576238053] [facility] Scheduled Test 1972 00:00:00 CT Colonography (combo) [code = CT Colonography (combo)] [facility] Scheduled Test 1972 00:00:00 Screening for malignant neoplasm of colon (procedure) [code = 898114622] [facility] Scheduled Test 1972 00:00:00 Screening for malignant neoplasm of colon (procedure) [code = 085988952] [facility] Scheduled Test 1972 00:00:00 Screening for malignant neoplasm of colon (procedure) [code = 230210400] [facility] Scheduled Test 1972 00:00:00 Screening for malignant neoplasm of colon (procedure) [code = 531621782] [facility] Scheduled Test 1972 00:00:00 Sigmoidoscopy [code = Sigmoidoscopy] [facility] Scheduled Test 1972 00:00:00 Screening for malignant neoplasm of breast (procedure) [code = 022986354] [facility] Scheduled Test 1972 00:00:00 CT Colonography (combo) [code = CT Colonography (combo)] [facility] Scheduled Test 1972 00:00:00 Screening for malignant neoplasm of colon (procedure) [code = 763203396] [facility] Scheduled Test 1972 00:00:00 Screening for malignant neoplasm of colon (procedure) [code = 408702886] [facility] Scheduled Test 1972 00:00:00 Screening for malignant neoplasm of colon (procedure) [code = 973550447] [facility] Scheduled Test 1972 00:00:00 Screening for malignant neoplasm of colon (procedure) [code = 940333652] [facility] Scheduled Test 1972 00:00:00 Sigmoidoscopy [code = Sigmoidoscopy] [facility] Scheduled Test 1972 00:00:00 Screening for malignant neoplasm of breast (procedure) [code = 418713655] [facility] Scheduled Test 1972 00:00:00 CT Colonography (combo) [code = CT Colonography (combo)] [facility] Scheduled Test 1972 00:00:00 Screening for malignant neoplasm of colon (procedure) [code = 206034789] [facility] Scheduled Test 1972 00:00:00 Screening for malignant neoplasm of colon (procedure) [code = 800771126] [facility] Scheduled Test 1972 00:00:00 Screening for malignant neoplasm of colon (procedure) [code = 063726865] [facility] Scheduled Test 1972 00:00:00 Screening for malignant neoplasm of colon (procedure) [code = 441051047] [facility] Scheduled Test 1972 00:00:00 Sigmoidoscopy [code = Sigmoidoscopy] [facility] Scheduled Test 1972 00:00:00 Screening for malignant neoplasm of breast (procedure) [code = 566236552] [facility] Scheduled Test 1972 00:00:00 CT Colonography (combo) [code = CT Colonography (combo)] [facility] Scheduled Test 1972 00:00:00 Screening for malignant neoplasm of breast (procedure) [code = 332189465] [facility] Scheduled Test 1972 00:00:00 CT Colonography (combo) [code = CT Colonography (combo)] [facility] Scheduled Test 1972 00:00:00 Screening for malignant neoplasm of colon (procedure) [code = 344335746] [facility] Scheduled Test 1972 00:00:00 Screening for malignant neoplasm of colon (procedure) [code = 323357149] [facility] Scheduled Test 1972 00:00:00 Screening for malignant neoplasm of colon (procedure) [code = 814672917] [facility] Scheduled Test 1972 00:00:00 Screening for malignant neoplasm of colon (procedure) [code = 900160579] [facility] Sched[facility] Test 1972 00:00:00 Sigmoidoscopy [code = Sigmoidoscopy] [facility] Sched[facility] Test 1972 00:00:00 Screening for malignant neoplasm of colon (procedure) [code = 056271921] [facility] Scheduled Test 1972 00:00:00 Screening for malignant neoplasm of colon (procedure) [code = 387235258] [facility] Sched[facility] Test 1972 00:00:00 Screening for malignant neoplasm of colon (procedure) [code = 724464748] [facility] Sched[facility] Test 1972 00:00:00 Screening for malignant neoplasm of colon (procedure) [code = 650067746] [facility] Sched[facility] Test 1972 00:00:00 Sigmoidoscopy [code = Sigmoidoscopy] [facility] Scheduled Test 1972 00:00:00 Screening for malignant neoplasm of breast (procedure) [code = 052411386] [facility] Scheduled Test 1972 00:00:00 CT Colonography (combo) [code = CT Colonography (combo)] [facility] Sched[facility] Test 1972 00:00:00 Screening for malignant neoplasm of colon (procedure) [code = 363380973] [facility] Sched[facility] Test 1972 00:00:00 Screening for malignant neoplasm of colon (procedure) [code = 023155594] [facility] Sched[facility] Test 1972 00:00:00 Screening for malignant neoplasm of colon (procedure) [code = 138904786] [facility] Scheduled Test 1972 00:00:00 Screening for malignant neoplasm of colon (procedure) [code = 991640551] [facility] Scheduled Test 1972 00:00:00 Sigmoidoscopy [code = Sigmoidoscopy] [facility] Scheduled Test 1972 00:00:00 Screening for malignant neoplasm of breast (procedure) [code = 698986064] [facility] Scheduled Test 1972 00:00:00 CT Colonography (combo) [code = CT Colonography (combo)] [facility] Scheduled Test 1972 00:00:00 Screening for malignant neoplasm of colon (procedure) [code = 626744382] [facility] Scheduled Test 1972 00:00:00 Screening for malignant neoplasm of colon (procedure) [code = 808416832] [facility] Scheduled Test 1972 00:00:00 Screening for malignant neoplasm of colon (procedure) [code = 803900984] [facility] Scheduled Test 1972 00:00:00 Screening for malignant neoplasm of colon (procedure) [code = 650731379] [facility] Scheduled Test 1972 00:00:00 Sigmoidoscopy [code = Sigmoidoscopy] [facility] Scheduled Test 1972 00:00:00 Screening for malignant neoplasm of breast (procedure) [code = 683773906] [facility] Scheduled Test 1972 00:00:00 CT Colonography (combo) [code = CT Colonography (combo)] [facility] Scheduled Test 1972 00:00:00 Screening for malignant neoplasm of colon (procedure) [code = 875470056] [facility] Scheduled Test 1972 00:00:00 Screening for malignant neoplasm of colon (procedure) [code = 744629149] [facility] Sched[facility] Test 1972 00:00:00 Screening for malignant neoplasm of colon (procedure) [code = 645140078] [facility] Scheduled Test 1972 00:00:00 Screening for malignant neoplasm of colon (procedure) [code = 819122262] [facility] Sched[facility] Test 1972 00:00:00 Sigmoidoscopy [code = Sigmoidoscopy] [facility] Scheduled Test 1972 00:00:00 Screening for malignant neoplasm of breast (procedure) [code = 382152995] [facility] Sched[facility] Test 1972 00:00:00 CT Colonography (combo) [code = CT Colonography (combo)] [facility] Scheduled Test 1972 00:00:00 Screening for malignant neoplasm of colon (procedure) [code = 177559445] [facility] Scheduled Test 1972 00:00:00 Screening for malignant neoplasm of colon (procedure) [code = 608606442] [facility] Scheduled Test 1972 00:00:00 Screening for malignant neoplasm of colon (procedure) [code = 065541392] [facility] Scheduled Test 1972 00:00:00 Screening for malignant neoplasm of colon (procedure) [code = 773316272] [facility] Sched[facility] Test 1972 00:00:00 Sigmoidoscopy [code = Sigmoidoscopy] [facility] Sched[facility] Test 1972 00:00:00 Screening for malignant neoplasm of breast (procedure) [code = 698161567] [facility] Scheduled Test 1972 00:00:00 CT Colonography (combo) [code = CT Colonography (combo)] [facility] Sched[facility] Test 1972 00:00:00 Screening for malignant neoplasm of colon (procedure) [code = 227095054] [facility] Sched[facility] Test 1972 00:00:00 Screening for malignant neoplasm of colon (procedure) [code = 299638126] [facility] Test 1972 00:00:00 Screening for malignant neoplasm of colon (procedure) [code = 970771479] [facility] Test 1972 00:00:00 Screening for malignant neoplasm of colon (procedure) [code = 109760268] [facility] Test 1972 00:00:00 Sigmoidoscopy [code = Sigmoidoscopy] [facility] Sched[facility] Test 1972 00:00:00 Screening for malignant neoplasm of breast (procedure) [code = 090435748] [facility] Scheduled Test 1972 00:00:00 CT Colonography (combo) [code = CT Colonography (combo)] [facility] Test 1972 00:00:00 Screening for malignant neoplasm of colon (procedure) [code = 885023082] [facility] Scheduled Test 1972 00:00:00 Screening for malignant neoplasm of colon (procedure) [code = 120515753] [facility] Scheduled Test 1972 00:00:00 Screening for malignant neoplasm of colon (procedure) [code = 994953529] [facility] Sched[facility] Test 1972 00:00:00 Screening for malignant neoplasm of colon (procedure) [code = 579988603] [facility] Sched[facility] Test 1972 00:00:00 Sigmoidoscopy [code = Sigmoidoscopy] [facility] Sched[facility] Test 1972 00:00:00 Screening for malignant neoplasm of breast (procedure) [code = 531788382] [facility] Scheduled Test 1972 00:00:00 CT Colonography (combo) [code = CT Colonography (combo)] [facility] Sched[facility] Test 1972 00:00:00 Screening for malignant neoplasm of colon (procedure) [code = 378142464] [facility] Sched[facility] Test 1972 00:00:00 Screening for malignant neoplasm of colon (procedure) [code = 275313801] [facility] Sched[facility] Test 1972 00:00:00 Screening for malignant neoplasm of colon (procedure) [code = 528278545] [facility] Sched[facility] Test 1972 00:00:00 Screening for malignant neoplasm of colon (procedure) [code = 975575836] [facility] Scheduled Test 1972 00:00:00 Screening for malignant neoplasm of breast (procedure) [code = 374525099] [facility] Sched[facility] Test 1972 00:00:00 CT Colonography (combo) [code = CT Colonography (combo)] [facility] Sched[facility] Test 1972 00:00:00 Sigmoidoscopy [code = Sigmoidoscopy] [facility] Sched[facility] Test 1972 00:00:00 Screening for malignant neoplasm of colon (procedure) [code = 915852878] [facility] Test 1972 00:00:00 Screening for malignant neoplasm of colon (procedure) [code = 594337295] [facility] Test 1972 00:00:00 Screening for malignant neoplasm of colon (procedure) [code = 335048125] [facility] Sched[facility] Test 1972 00:00:00 Screening for malignant neoplasm of colon (procedure) [code = 011256485] [facility] Sched[facility] Test 1972 00:00:00 Sigmoidoscopy [code = Sigmoidoscopy] [facility] Sched[facility] Test 1972 00:00:00 Screening for malignant neoplasm of breast (procedure) [code = 107869434] [facility] Scheduled Test 1972 00:00:00 CT Colonography (combo) [code = CT Colonography (combo)] [facility] Sched[facility] Test 1972 00:00:00 Screening for malignant neoplasm of colon (procedure) [code = 283582698] [facility] Scheduled Test 1972 00:00:00 Screening for malignant neoplasm of colon (procedure) [code = 209239967] [facility] Sched[facility] Test 1972 00:00:00 Screening for malignant neoplasm of colon (procedure) [code = 869157044] [facility] Sched[facility] Test 1972 00:00:00 Screening for malignant neoplasm of colon (procedure) [code = 472425055] [facility] Sched[facility] Test 1972 00:00:00 Sigmoidoscopy [code = Sigmoidoscopy] [facility] Sched[facility] Test 1972 00:00:00 Screening for malignant neoplasm of breast (procedure) [code = 999792824] [facility] Scheduled Test 1972 00:00:00 CT Colonography (combo) [code = CT Colonography (combo)] [facility] Test 1972 00:00:00 Screening for malignant neoplasm of colon (procedure) [code = 182289779] [facility] Sched[facility] Test 1972 00:00:00 Screening for malignant neoplasm of colon (procedure) [code = 950851262] [facility] Test 1972 00:00:00 Screening for malignant neoplasm of colon (procedure) [code = 283150100] [facility] Test 1972 00:00:00 Screening for malignant neoplasm of colon (procedure) [code = 707591523] [facility] Sched[facility] Test 1972 00:00:00 Sigmoidoscopy [code = Sigmoidoscopy] [facility] Sched[facility] Test 1972 00:00:00 Screening for malignant neoplasm of breast (procedure) [code = 051270135] [facility] Scheduled Test 1972 00:00:00 CT Colonography (combo) [code = CT Colonography (combo)] [facility] Test 1972 00:00:00 Screening for malignant neoplasm of colon (procedure) [code = 691870224] [facility] Test 1972 00:00:00 Screening for malignant neoplasm of colon (procedure) [code = 361493202] [facility] Sched[facility] Test 1972 00:00:00 Screening for malignant neoplasm of colon (procedure) [code = 780467908] [facility] Scheduled Test 1972 00:00:00 Screening for malignant neoplasm of colon (procedure) [code = 746081007] [facility] Sched[facility] Test 1972 00:00:00 Sigmoidoscopy [code = Sigmoidoscopy] [facility] Sched[facility] Test 1972 00:00:00 Screening for malignant neoplasm of breast (procedure) [code = 548861590] [facility] Scheduled Test 1972 00:00:00 CT Colonography (combo) [code = CT Colonography (combo)] [facility] Sched[facility] Test 1972 00:00:00 Screening for malignant neoplasm of colon (procedure) [code = 199302395] [facility] Scheduled Test 1972 00:00:00 Screening for malignant neoplasm of colon (procedure) [code = 133115508] [facility] Sched[facility] Test 1972 00:00:00 Screening for malignant neoplasm of colon (procedure) [code = 681909549] [facility] Scheduled Test 1972 00:00:00 Screening for malignant neoplasm of colon (procedure) [code = 231683018] [facility] Sched[facility] Test 1972 00:00:00 Sigmoidoscopy [code = Sigmoidoscopy] [facility] Scheduled Test 1972 00:00:00 Screening for malignant neoplasm of breast (procedure) [code = 206682229] [facility] Scheduled Test 1972 00:00:00 CT Colonography (combo) [code = CT Colonography (combo)] [facility] Sched[facility] Test 1972 00:00:00 Screening for malignant neoplasm of colon (procedure) [code = 283923118] [facility] Scheduled Test 1972 00:00:00 Screening for malignant neoplasm of colon (procedure) [code = 634828836] [facility] Scheduled Test 1972 00:00:00 Screening for malignant neoplasm of colon (procedure) [code = 819247757] [facility] Scheduled Test 1972 00:00:00 Screening for malignant neoplasm of colon (procedure) [code = 192017213] [facility] Scheduled Test 1972 00:00:00 Sigmoidoscopy [code = Sigmoidoscopy] [facility] Scheduled Test 1972 00:00:00 Screening for malignant neoplasm of breast (procedure) [code = 916692600] [facility] Scheduled Test 1972 00:00:00 CT Colonography (combo) [code = CT Colonography (combo)] [facility] Scheduled Test 1972 00:00:00 Screening for malignant neoplasm of colon (procedure) [code = 004551103] [facility] Scheduled Test 1972 00:00:00 Screening for malignant neoplasm of colon (procedure) [code = 700166235] [facility] Scheduled Test 1972 00:00:00 Screening for malignant neoplasm of breast (procedure) [code = 494292423] [facility] Scheduled Test 1972 00:00:00 Screening for malignant neoplasm of colon (procedure) [code = 479834959] [facility] Scheduled Test 1972 00:00:00 CT Colonography (combo) [code = CT Colonography (combo)] [facility] Scheduled Test 1972 00:00:00 Screening for malignant neoplasm of colon (procedure) [code = 579170330] [facility] Scheduled Test 1972 00:00:00 Screening for malignant neoplasm of colon (procedure) [code = 610884451] [facility] Scheduled Test 1972 00:00:00 Screening for malignant neoplasm of colon (procedure) [code = 617836360] [facility] Scheduled Test 1972 00:00:00 Screening for malignant neoplasm of colon (procedure) [code = 869177429] [facility] Scheduled Test 1972 00:00:00 Sigmoidoscopy [code = Sigmoidoscopy] [facility] Scheduled Test 1972 00:00:00 Screening for malignant neoplasm of colon (procedure) [code = 423958063] [facility] Scheduled Test 1972 00:00:00 Sigmoidoscopy [code = Sigmoidoscopy] [facility] Scheduled Test 1972 00:00:00 Screening for malignant neoplasm of breast (procedure) [code = 600980131] [facility] Scheduled Test 1972 00:00:00 CT Colonography (combo) [code = CT Colonography (combo)] [facility] Scheduled Test 1972 00:00:00 Screening for malignant neoplasm of colon (procedure) [code = 024273882] [facility] Scheduled Test 1972 00:00:00 Screening for malignant neoplasm of colon (procedure) [code = 500559033] [facility] Sched[facility] Test 1972 00:00:00 Screening for malignant neoplasm of colon (procedure) [code = 100725180] [facility] Scheduled Test 1972 00:00:00 Screening for malignant neoplasm of colon (procedure) [code = 198772435] [facility] Scheduled Test 1972 00:00:00 Sigmoidoscopy [code = Sigmoidoscopy] [facility] Scheduled Test 1972 00:00:00 Screening for malignant neoplasm of breast (procedure) [code = 562172486] [facility] Scheduled Test 1972 00:00:00 CT Colonography (combo) [code = CT Colonography (combo)] [facility] Scheduled Test 1972 00:00:00 Screening for malignant neoplasm of colon (procedure) [code = 084434620] [facility] Scheduled Test 1972 00:00:00 Screening for malignant neoplasm of colon (procedure) [code = 932824243] [facility] Scheduled Test 1972 00:00:00 Screening for malignant neoplasm of colon (procedure) [code = 464933583] [facility] Scheduled Test 1972 00:00:00 Screening for malignant neoplasm of colon (procedure) [code = 382221974] [facility] Scheduled Test 1972 00:00:00 Sigmoidoscopy [code = Sigmoidoscopy] [facility] Scheduled Test 1972 00:00:00 Screening for malignant neoplasm of breast (procedure) [code = 351956412] [facility] Scheduled Test 1972 00:00:00 CT Colonography (combo) [code = CT Colonography (combo)] [facility] Sched[facility] Test 1972 00:00:00 Screening for malignant neoplasm of colon (procedure) [code = 601567010] [facility] Scheduled Test 1972 00:00:00 Screening for malignant neoplasm of colon (procedure) [code = 070854806] [facility] Test 1972 00:00:00 Screening for malignant neoplasm of colon (procedure) [code = 015074328] [facility] Scheduled Test 1972 00:00:00 Screening for malignant neoplasm of colon (procedure) [code = 138850898] [facility] Sched[facility] Test 1972 00:00:00 Sigmoidoscopy [code = Sigmoidoscopy] [facility] Scheduled Test 1972 00:00:00 Screening for malignant neoplasm of breast (procedure) [code = 115249128] [facility] Scheduled Test 1972 00:00:00 CT Colonography (combo) [code = CT Colonography (combo)] [facility] Test 1972 00:00:00 Screening for malignant neoplasm of colon (procedure) [code = 299421428] [facility] Test 1972 00:00:00 Screening for malignant neoplasm of colon (procedure) [code = 400045865] [facility] Scheduled Test 1972 00:00:00 Screening for malignant neoplasm of colon (procedure) [code = 995440303] [facility] Scheduled Test 1972 00:00:00 Screening for malignant neoplasm of colon (procedure) [code = 633426306] [facility] Scheduled Test 1972 00:00:00 Sigmoidoscopy [code = Sigmoidoscopy] [facility] Scheduled Test 1972 00:00:00 Screening for malignant neoplasm of breast (procedure) [code = 001462032] [facility] Scheduled Test 1972 00:00:00 CT Colonography (combo) [code = CT Colonography (combo)] [facility] Scheduled Test 1972 00:00:00 Screening for malignant neoplasm of colon (procedure) [code = 995461504] [facility] Sched[facility] Test 1972 00:00:00 Screening for malignant neoplasm of colon (procedure) [code = 854684010] [facility] Scheduled Test 1972 00:00:00 Screening for malignant neoplasm of colon (procedure) [code = 221970516] [facility] Sched[facility] Test 1972 00:00:00 Screening for malignant neoplasm of colon (procedure) [code = 715286901] [facility] Scheduled Test 1972 00:00:00 Sigmoidoscopy [code = Sigmoidoscopy] [facility] Scheduled Test 1972 00:00:00 Screening for malignant neoplasm of breast (procedure) [code = 158013478] [facility] Sched[facility] Test 1972 00:00:00 CT Colonography (combo) [code = CT Colonography (combo)] [facility] Sched[facility] Test 1972 00:00:00 Screening for malignant neoplasm of colon (procedure) [code = 809573294] [facility] Sched[facility] Test 1972 00:00:00 Screening for malignant neoplasm of colon (procedure) [code = 283563006] [facility] Test 1972 00:00:00 Screening for malignant neoplasm of colon (procedure) [code = 332468634] [facility] Sched[facility] Test 1972 00:00:00 Screening for malignant neoplasm of colon (procedure) [code = 768563768] [facility] Scheduled Test 1972 00:00:00 Sigmoidoscopy [code = Sigmoidoscopy] [facility] Scheduled Test 1972 00:00:00 Screening for malignant neoplasm of breast (procedure) [code = 799099731] [facility] Scheduled Test 1972 00:00:00 CT Colonography (combo) [code = CT Colonography (combo)] [facility] Sched[facility] Test 1972 00:00:00 Screening for malignant neoplasm of colon (procedure) [code = 644293767] [facility] Scheduled Test 1972 00:00:00 Screening for malignant neoplasm of colon (procedure) [code = 602280387] [facility] Test 1972 00:00:00 Screening for malignant neoplasm of colon (procedure) [code = 624734534] [facility] Sched[facility] Test 1972 00:00:00 Screening for malignant neoplasm of colon (procedure) [code = 749762972] [facility] Test 1972 00:00:00 Sigmoidoscopy [code = Sigmoidoscopy] [facility] Scheduled Test 1972 00:00:00 Screening for malignant neoplasm of breast (procedure) [code = 500185869] [facility] Sched[facility] Test 1972 00:00:00 CT Colonography (combo) [code = CT Colonography (combo)] [facility] Test 1972 00:00:00 Screening for malignant neoplasm of colon (procedure) [code = 930450929] [facility] Test 1972 00:00:00 Screening for malignant neoplasm of colon (procedure) [code = 582689579] [facility] Test 1972 00:00:00 Screening for malignant neoplasm of colon (procedure) [code = 755394481] [facility] Test 1972 00:00:00 Screening for malignant neoplasm of colon (procedure) [code = 236072734] [facility] Test 1972 00:00:00 Sigmoidoscopy [code = Sigmoidoscopy] [facility] Test 1972 00:00:00 Screening for malignant neoplasm of breast (procedure) [code = 292961784] [facility] Scheduled Test 1972 00:00:00 CT Colonography (combo) [code = CT Colonography (combo)] [facility] Test 1972 00:00:00 Screening for malignant neoplasm of colon (procedure) [code = 723637046] [facility] Sched[facility] Test 1972 00:00:00 Screening for malignant neoplasm of colon (procedure) [code = 943882245] [facility] Sched[facility] Test 1972 00:00:00 Screening for malignant neoplasm of colon (procedure) [code = 974828435] [facility] Test 1972 00:00:00 Screening for malignant neoplasm of colon (procedure) [code = 157241147] [facility] Sched[facility] Test 1972 00:00:00 Sigmoidoscopy [code = Sigmoidoscopy] [facility] Scheduled Test 1972 00:00:00 Screening for malignant neoplasm of breast (procedure) [code = 236622681] [facility] Sched[facility] Test 1972 00:00:00 CT Colonography (combo) [code = CT Colonography (combo)] [facility] Sched[facility] Test 1972 00:00:00 Screening for malignant neoplasm of colon (procedure) [code = 881226873] [facility] Test 1972 00:00:00 Screening for malignant neoplasm of colon (procedure) [code = 977461922] [facility] Test 1972 00:00:00 Screening for malignant neoplasm of colon (procedure) [code = 234930789] [facility] Sched[facility] Test 1972 00:00:00 Screening for malignant neoplasm of colon (procedure) [code = 654569703] [facility] Sched[facility] Test 1972 00:00:00 Sigmoidoscopy [code = Sigmoidoscopy] [facility] Sched[facility] Test 1972 00:00:00 Screening for malignant neoplasm of breast (procedure) [code = 850748770] [facility] Test 1972 00:00:00 CT Colonography (combo) [code = CT Colonography (combo)] [facility] Test 1972 00:00:00 Screening for malignant neoplasm of colon (procedure) [code = 280636327] [facility] Test 1972 00:00:00 Screening for malignant neoplasm of colon (procedure) [code = 656049444] [facility] Test 1972 00:00:00 Screening for malignant neoplasm of colon (procedure) [code = 193815512] [facility] Future Scheduled Test 1972 00:00:00 Screening for malignant neoplasm of colon (procedure) [code = 148596845] [facility] Future Scheduled Test 1972 00:00:00 Sigmoidoscopy [code = Sigmoidoscopy] [facility] Future Scheduled Test 1972 00:00:00 Screening for malignant neoplasm of breast (procedure) [code = 601723348] [facility] Future Scheduled Test 1972 00:00:00 CT Colonography (combo) [code = CT Colonography (combo)] [facility] Future Scheduled Test 1972 00:00:00 Screening for malignant neoplasm of colon (procedure) [code = 004854766] [facility] Future Scheduled Test 1972 00:00:00 Screening for malignant neoplasm of colon (procedure) [code = 522582243] [facility] Future Scheduled Test 1972 00:00:00 Screening for malignant neoplasm of colon (procedure) [code = 806713708] [facility] Future Scheduled Test 1972 00:00:00 Screening for malignant neoplasm of colon (procedure) [code = 867324599] [facility] Future Scheduled Test 1972 00:00:00 Sigmoidoscopy [code = Sigmoidoscopy] [facility] Future Scheduled Test 1972 00:00:00 Screening for malignant neoplasm of breast (procedure) [code = 385991978] [facility] Future Scheduled Test 1972 00:00:00 CT Colonography (combo) [code = CT Colonography (combo)] [facility] Future Scheduled Test 1972 00:00:00 Screening for malignant neoplasm of colon (procedure) [code = 079998757] [facility] Future Scheduled Test 1972 00:00:00 Screening for malignant neoplasm of colon (procedure) [code = 029737245] [facility] Future Scheduled Test 1972 00:00:00 Screening for malignant neoplasm of colon (procedure) [code = 916414481] [facility] Future Scheduled Test 1972 00:00:00 Screening for malignant neoplasm of colon (procedure) [code = 993044705] [facility] Future Scheduled Test 1972 00:00:00 Sigmoidoscopy [code = Sigmoidoscopy] [facility] Future Scheduled Test 1972 00:00:00 Screening for malignant neoplasm of breast (procedure) [code = 793935176] [facility] Future Scheduled Test 1972 00:00:00 CT Colonography (combo) [code = CT Colonography (combo)] [facility] Future Scheduled Test 1972 00:00:00 Screening for malignant neoplasm of colon (procedure) [code = 131719204] [facility] Future Scheduled Test 1972 00:00:00 Screening for malignant neoplasm of colon (procedure) [code = 159806201] [facility] Future Scheduled Test 1972 00:00:00 Screening for malignant neoplasm of colon (procedure) [code = 018269473] [facility] Future Scheduled Test 1972 00:00:00 Screening for malignant neoplasm of colon (procedure) [code = 372260786] [facility] Future Scheduled Test 1972 00:00:00 Sigmoidoscopy [code = Sigmoidoscopy] [facility] Future Scheduled Test 1972 00:00:00 Screening for malignant neoplasm of breast (procedure) [code = 641657346] [facility] Future Scheduled Test 1972 00:00:00 CT Colonography (combo) [code = CT Colonography (combo)] [facility] Future Scheduled Test 1972 00:00:00 Screening for malignant neoplasm of colon (procedure) [code = 166153190] [facility] Future Scheduled Test 1972 00:00:00 Screening for malignant neoplasm of colon (procedure) [code = 275973898] [facility] Future Scheduled Test 1972 00:00:00 Screening for malignant neoplasm of colon (procedure) [code = 608097867] [facility] Future Scheduled Test 1972 00:00:00 Screening for malignant neoplasm of colon (procedure) [code = 245195753] [facility] Future Scheduled Test 1972 00:00:00 Sigmoidoscopy [code = Sigmoidoscopy] [facility] Future Scheduled Test 1972 00:00:00 Screening for malignant neoplasm of breast (procedure) [code = 871152352] [facility] Future Scheduled Test 1972 00:00:00 CT Colonography (combo) [code = CT Colonography (combo)] [facility] Future Scheduled Test 1972 00:00:00 Screening for malignant neoplasm of colon (procedure) [code = 488313592] [facility] Future Scheduled Test 1972 00:00:00 Screening for malignant neoplasm of colon (procedure) [code = 634130584] [facility] Future Scheduled Test 1972 00:00:00 Screening for malignant neoplasm of colon (procedure) [code = 699088371] [facility] Future Scheduled Test 1972 00:00:00 Screening for malignant neoplasm of colon (procedure) [code = 668378715] [facility] Future Scheduled Test 1972 00:00:00 Sigmoidoscopy [code = Sigmoidoscopy] [facility] Future Scheduled Test 1972 00:00:00 Screening for malignant neoplasm of breast (procedure) [code = 982775763] [facility] Future Scheduled Test 1972 00:00:00 CT Colonography (combo) [code = CT Colonography (combo)] [facility] Future Scheduled Test 1972 00:00:00 Screening for malignant neoplasm of colon (procedure) [code = 214803065] [facility] Future Scheduled Test 1972 00:00:00 Screening for malignant neoplasm of colon (procedure) [code = 260753864] [facility] Future Scheduled Test 1972 00:00:00 Screening for malignant neoplasm of colon (procedure) [code = 750586306] [facility] Future Scheduled Test 1972 00:00:00 Screening for malignant neoplasm of colon (procedure) [code = 410506362] [facility] Future Scheduled Test 1972 00:00:00 Sigmoidoscopy [code = Sigmoidoscopy] [facility] Future Scheduled Test 1972 00:00:00 Screening for malignant neoplasm of breast (procedure) [code = 195070275] [facility] Future Scheduled Test 1972 00:00:00 CT Colonography (combo) [code = CT Colonography (combo)] [facility] Future Scheduled Test 1972 00:00:00 Screening for malignant neoplasm of colon (procedure) [code = 330629163] [facility] Future Scheduled Test 1972 00:00:00 Screening for malignant neoplasm of colon (procedure) [code = 316627677] [facility] Future Scheduled Test 1972 00:00:00 Screening for malignant neoplasm of colon (procedure) [code = 560354187] [facility] Future Scheduled Test 1972 00:00:00 Screening for malignant neoplasm of colon (procedure) [code = 665973858] [facility] Future Scheduled Test 1972 00:00:00 Sigmoidoscopy [code = Sigmoidoscopy] [facility] Future Scheduled Test 1972 00:00:00 Screening for malignant neoplasm of breast (procedure) [code = 730262214] [facility] Future Scheduled Test 1972 00:00:00 CT Colonography (combo) [code = CT Colonography (combo)] [facility] Future Scheduled Test 1972 00:00:00 Screening for malignant neoplasm of colon (procedure) [code = 216045205] [facility] Future Scheduled Test 1972 00:00:00 Screening for malignant neoplasm of colon (procedure) [code = 132789344] [facility] Future Scheduled Test 1972 00:00:00 Screening for malignant neoplasm of colon (procedure) [code = 385888877] [facility] Future Scheduled Test 1972 00:00:00 Screening for malignant neoplasm of colon (procedure) [code = 957866725] [facility] Future Scheduled Test 1972 00:00:00 Sigmoidoscopy [code = Sigmoidoscopy] [facility] Future Scheduled Test 1972 00:00:00 Screening for malignant neoplasm of breast (procedure) [code = 518052968] [facility] Future Scheduled Test 1972 00:00:00 CT Colonography (combo) [code = CT Colonography (combo)] [facility] Future Scheduled Test 1972 00:00:00 Screening for malignant neoplasm of colon (procedure) [code = 288735740] [facility] Future Scheduled Test 1972 00:00:00 Screening for malignant neoplasm of colon (procedure) [code = 821037100] [facility] Future Scheduled Test 1972 00:00:00 Screening for malignant neoplasm of colon (procedure) [code = 947874138] [facility] Future Scheduled Test 1972 00:00:00 Screening for malignant neoplasm of colon (procedure) [code = 374249054] [facility] Future Scheduled Test 1972 00:00:00 Sigmoidoscopy [code = Sigmoidoscopy] [facility] Goal Plan of Care Not e [code = 24386-2] Goal Plan of Care Not e [code = 18910-5] Goal Plan of Care Not e [code = 56620-6] Goal Plan of Care Not e [code = 61216-8] Goal Plan of Care Not e [code = 53948-8] Goal Plan of Care Not e [code = 12093-6] Goal Plan of Care Not e [code = 12372-3] Goal Plan of Care Not e [code = 08869-9] Goal Plan of Care Not e [code = 36630-5] Goal Plan of Care Not e [code = 42276-0] Goal Plan of Care Not e [code = 35858-1] Goal Plan of Care Not e [code = 68423-7] Goal Plan of Care Not e [code = 36811-2] Goal Plan of Care Not e [code = 77844-2] Goal Plan of Care Not e [code = 40174-2] Goal Plan of Care Not e [code = 31295-4] Goal Plan of Care Not e [code = 18683-0] Goal Plan of Care Not e [code = 37535-6] Goal Plan of Care Not e [code = 35384-5] Goal Plan of Care Not e [code = 65704-8] Goal Plan of Care Not e [code = 54436-1] Goal Plan of Care Not e [code = 29136-1] Goal Plan of Care Not e [code = 46048-2] Goal Plan of Care Not e [code = 11553-2] Goal Plan of Care Not e [code = 59516-2] Goal Plan of Care Not e [code = 03380-6] Goal Plan of Care Not e [code = 76755-9] Goal Plan of Care Not e [code = 73998-6] Goal Plan of Care Not e [code = 75180-7] Goal Plan of Care Not e [code = 96398-3] Goal Plan of Care Not e [code = 57511-9] Goal Plan of Care Not e [code = 67832-2] Goal Plan of Care Not e [code = 00425-9] Goal Plan of Care Not e [code = 06928-5] Goal Plan of Care Not e [code = 65679-6] Encounters Start Date/Time End Date/Time Encounter Type Admission Type Attending [facility] Care Department Encounter ID Source 2023-09-07 10:11:03 Inpatient PANKAJ PARRISH [facility] [id number] [facility] 2023-09-05 10:08:27 Inpatient PANKAJ PARRISH [facility] [id number] [facility] 2023-09-05 10:05:12 Inpatient PANKAJ PARRISH [facility] [id number] [facility] 2023-09-04 04:51:30 Inpatient PANKAJ PARRISH [facility] [id number] [facility] 2023-09-04 04:14:55 Inpatient PANKAJ PARRISH [facility] [id number] [facility] 2023-09-04 03:08:45 Inpatient [facility] [id number] [facility] 2023-09-04 02:36:28 Inpatient PANKAJ PARRISH [facility] [id number] [facility] 2023-06-16 09:32:36 Inpatient AYDEE DICKENS [facility] [id number] [facility] 2023-06-16 09:32:09 Inpatient AY[facility]E DICKENS [facility] [id number] [facility] 2023-06-16 09:31:53 Inpatient AYDEE DICKENS [facility] SLE [id number] [facility] 2023-06-14 07:46:02 Inpatient AYDEE DICKENS SLEH [facility] [id number] [facility] 2023-06-14 07:39:22 Inpatient AYDEE DICKENS SLEH [facility] [id number] [facility] 2023-06-14 06:38:38 Inpatient AYDEE DICKENS [facility] [id number] [facility] 2023-06-13 13:44:18 Inpatient CARA MURPHY [facility] [id number] [facility] 2023-06-13 11:45:24 Inpatient AYDEE DICKENS [facility] [id number] [facility] 2023-05-08 11:21:00 Outpatient EL ADAM GARCIA [facility] Surgery [id number] [facility] 2023-04-01 14:26:29 Inpatient ER DEVORA MARJORIELEXIE [facility] [id number] [facility] 2023-03-31 09:24:52 Inpatient ER MARIAH ALDRIDGE [facility] [id number] [facility] 2021-05-20 18:48:04 Emergency [facility] [id number] [facility] 2021-05-20 12:43:40 Emergency [facility] [id number] [facility] 2023-11-10 09:30:00 2023-11-10 09:30:00 Outpatient MYLA MIJARES [id number] Cynthia Garcia 2023-10-05 11:30:00 2023-10-05 11:30:00 Outpatient GUSTAVO DELANEY [id number] [facility]23-09-30 16:30:00 2023-09-30 16:30:00 Outpatient PREZASGUSTAVO CYNTHIA [id number] [facility] 2023-09-23 00:00:00 2023-09-23 00:00:00 Outpatient CINDI TIFFANY MTZ [id number] [facility]23-09-22 00:00:00 2023-09-22 00:00:00 Outpatient PREZAS, GUSTAVO MTZ CYNTHIA [id number] [facility] 2023-09-16 00:00:00 2023-09-16 00:00:00 Outpatient PREZAS, GUSTAVO MTZ CYNTHIA [id number] [facility] 2023-09-16 00:00:00 2023-09-16 00:00:00 Outpatient PREZAS, GUSTAVO MTZ CYNTHIA [id number] [facility] 2023-09-16 00:00:00 2023-09-16 00:00:00 Outpatient PREZAS, GUSTAVO MTZ [facility]NTHIA [id number] [facility]23-[facility]-14 00:00:00 2023-09-14 00:00:00 Outpatient SHY GUILLEN CYNTHIA CYNTHIA [id number] Cynthia [facility] 2023-09-14 00:00:00 2023-09-14 00:00:00 Outpatient SHY GUILLEN CYNTHIA MTZ [id number] [facility] 2023-09-11 11:00:00 2023-09-11 11:00:00 Outpatient ANKUSH LORENZOAN CYNTHIA MTZ [id number] [facility] 2023-09-09 00:00:00 2023-09-09 00:00:00 Outpatient CYNTHIA MTZ [id number] Cynthia [facility] 2023-09-04 00:14:00 2023-09-08 10:51:00 [facility] y [id number] [facility] 2023-09-04 00:14:00 2023-09-08 10:51:00 Hospital Encounter London Berry, Pankaj FrySelin Maria [facility] [id number] [facility] 2023-09-07 18:41:43 2023-09-07 18:41:43 Outpatient SELIN MANE [facility] [id number] [facility] 2023-09-03 20:52:00 2023-09-03 23:44:00 emergency [facility] [id number] 2023-09-03 20:52:00 2023-09-03 23:44:00 Emergency ER JUANY GREEN [facility] [id number] [facility] 2023-09-02 00:00:00 2023-09-02 00:00:00 Outpatient TIFFANY PUENTE [id number] Cynthia [facility] 2023-09-01 15:30:00 2023-09-01 15:30:00 Outpatient DEMETRIUS TOBAR [id number] [facility] 2023-08-19 00:00:00 2023-08-19 00:00:00 Outpatient [facility]ILL[facility] [id number] [facility] 2023-08-13 00:00:00 2023-08-13 00:00:00 Orders Only Ketan Scruggs [facility] [id number] [facility] 2023-08-12 13:49:00 2023-08-12 16:12:00 Emergency X BRIAN BRYAN NDKEVIN ERT [id number] [facility] 2023-08-12 13:49:00 2023-08-12 16:12:00 Emergency Brian Bryan NDKEVIN [facility] [id number] 350.1.13.10 4.2.7.2.686 [id number] [facility] 2023-06-13 03:43:00 2023-06-16 19:45:00 Inpatient ER AYDEE GO [facility] Internal Med [id number] [facility] 2023-06-13 03:43:00 2023-06-16 19:45:00 Hospital Encounter ER Cara Burgess Sahar [facility] [id number] [facility] 2023-06-15 00:00:00 2023-06-15 00:00:00 Orders Only System, Provider Not In [facility] [id number] [facility] 2023-06-13 16:30:06 2023-06-13 16:30:06 Outpatient REJI DICKENSTerry [facility] [id number] [facility] 2023-06-13 00:00:00 2023-06-13 00:00:00 Orders Only [facility] [id number] [facility] 2023-06-13 00:00:00 2023-06-13 00:00:00 Travel [facility] [id number] [facility] 2023-06-12 00:00:00 2023-06-12 00:00:00 Telephone Dallas Gomez [facility] [id number] [facility] 2023-05-28 06:45:00 2023-06-04 17:36:00 Inpatient ADAM BRANTLEY Surgery [id number] [facility] 2023-05-28 06:45:00 2023-06-04 17:36:00 Hospital Encounter Adam Brantley [facility] [id number] [facility] 2023-06-01 09:10:00 2023-06-01 13:00:00 Anesthesia Event Harry Newsome Mujtaba Ahmad [facility] [id number] [facility] 2023-06-01 09:00:00 2023-06-01 11:30:00 Surgery Adam Garcia [facility] [id number] [facility] 2023-06-01 09:47:57 2023-06-01 09:47:57 Outpatient ADAM BRANTLEY [facility] [id number] [facility] 2023-06-01 09:40:34 2023-06-01 09:40:34 Outpatient ADAM BRANTLEY SLE [id number] [facility] 2023-05-31 09:25:55 2023-05-31 23:59:00 Inpatient ADAM BRANTLEY SLE [id number] [facility] 2023-05-31 09:00:00 2023-05-31 23:59:00 Hospital Encounter Adam Garcia [facility] [id number] [facility] 2023-05-28 18:15:29 2023-05-28 18:15:29 Outpatient ADAM BRANTLEY SLE [id number] [facility] 2023-05-28 08:30:00 2023-05-28 11:54:00 Anesthesia Event RamyaYue [facility] [id number] [facility] 2023-05-28 11:41:14 2023-05-28 11:41:14 Outpatient ADAM BRANTLEY [facility] [id number] [facility] 2023-05-28 08:30:00 2023-05-28 11:00:00 Surgery Adam Garcia [facility] [id number] [facility] 2023-05-28 10:00:47 2023-05-28 10:00:47 Outpatient ADAM BRANTLEY [facility] [id number] [facility] 2023-05-28 00:00:00 2023-05-28 00:00:00 Travel [facility] [id number] [facility] 2023-05-26 09:00:00 2023-05-26 09:00:00 Hospital Encounter Adam Garcia [facility] [id number] [facility] 2023-05-26 00:00:00 2023-05-26 00:00:00 Outpatient ADAM BRANTLEY SLE SLE [id number] [facility] 2023-05-26 00:00:00 2023-05-26 00:00:00 Outpatient NICOLETTE LIPSCOMB SLE [id number] [facility] 2023-05-26 00:00:00 2023-05-26 00:00:00 Travel [facility] [id number] [facility] 2023-05-13 11:43:03 2023-05-13 11:43:03 Outpatient [facility] 1025 Adria Martínez 2023-05-12 00:00:00 2023-05-12 00:00:00 Orders Only Adam Garcia [facility] [id number] [facility] 2023-05-08 14:11:21 2023-05-08 14:11:21 Outpatient [facility] [id number] Adria Martínez 2023-03-29 19:25:00 2023-04-02 20:48:00 Inpatient ER THOMAS LOZOYA Neurology [id number] [facility] 2023-03-29 19:25:00 2023-04-02 20:48:00 Hospital Encounter ER Connie Davey Marisela FreemanneenaMariahlkarThomas zapata [facility] [id number] [facility] 2023-03-31 08:32:56 2023-03-31 00:00:00 Inpatient ER MARIAH ALDRIDGE SLERigoberto SLE [id number] [facility] 2023-03-30 10:24:12 2023-03-30 23:59:00 Outpatient ER CONNIE DAVEY SLE [id number] [facility] 2023-03-30 09:40:00 2023-03-30 23:59:00 Hospital Encounter Connie Davey [facility] [id number] [facility] 2023-03-30 13:46:20 2023-03-30 13:46:20 Outpatient ER MARIAH ALDRIDGE SLERigoberto SLE [id number] [facility] 2023-03-30 13:46:14 2023-03-30 13:46:14 Outpatient ER MARIAH ALDRIDGE SLERigoberto SLE [id number] [facility] 2023-03-30 10:24:04 2023-03-30 10:24:04 Outpatient ER CONNIE DAVEY [facility] [id number] [facility] 2023-03-30 00:00:00 2023-03-30 00:00:00 Orders Only [facility] [id number] [facility] 2023-03-30 00:00:00 2023-03-30 00:00:00 Travel [facility] [id number] [facility] 2022-12-11 08:56:00 2022-12-11 15:29:00 Emergency X Alfonso ALVARADO [facility] ERT [id number] [facility] 2022-12-11 08:56:00 2022-12-11 15:29:00 Emergency Alfonso Alvarado [facility] 1.2.840.114 350.1.13.10 4.2.7.2.686 [id number] [facility] 2022-11-17 17:25:00 2022-11-18 01:19:00 Emergency X RITCHIE WARREN [facility] ERT [id number] [facility] 2022-11-17 17:25:00 2022-11-18 01:19:00 Emergency Ritchie Warren [facility] 1.2.840.114 350.1.13.10 4.2.7.2.686 [id number] [facility] 2022-08-28 00:00:00 2022-08-28 00:00:00 Patient Outreach Shy BeckmanCorbin [facility] 1.2.840.114 350.1.13.10 4.2.7.2.686 [id number] [facility] 2022-08-20 00:00:00 2022-08-20 00:00:00 Patient Outreach Shy Beckman BLAYNE [facility] 1.2.840.114 350.1.13.10 4.2.7.2.686 [id number] [facility] 2022-08-02 17:30:00 2022-08-03 14:29:00 Outpatient ER PARRISH DIANE [facility] Neurology [id number] [facility] 2022-08-02 17:30:00 2022-08-03 14:29:00 Hospital Encounter ER Halima Mendoza Kinjal M Parrish Diane [facility] [id number] [facility] 2022-08-03 00:00:00 2022-08-03 00:00:00 Orders Only [facility] [id number] [facility] 2022-08-02 00:00:00 2022-08-02 00:00:00 Travel [facility] [id number] [facility] 2022-07-31 11:42:00 2022-08-01 21:48:00 Inpatient Valeria LORENZA [facility] [id number] [facility] 2022-07-31 11:42:00 2022-08-01 21:48:00 Hospital Encounter Sav Rondon Yaman [facility] 1.2.840.114 350.1.13.10 4.2.7.2.686 [id number] [facility] 2022-08-01 00:00:00 2022-08-01 00:00:00 Transition of Care Maria Teresa Nicole 1.2.840.114 350.1.13.10 4.2.7.2.686 [id number] [facility] 2022-07-28 14:41:38 2022-07-28 14:41:38 Outpatient [facility] [id number] Adria Martínez 2022-07-28 00:00:00 2022-07-28 00:00:00 Outpatient Visit [id number] 2022-07-24 13:24:40 2022-07-24 13:24:40 Outpatient [facility] [id number] Adria Martínez 2022-05-23 14:51:01 2022-05-23 14:51:01 Outpatient [facility] [id number] Adria Martínez 2022-05-23 00:00:00 2022-05-23 00:00:00 Outpatient Visit [id number] 2022-05-04 20:22:00 2022-05-08 14:44:00 [facility] [id number] [facility] 2022-05-04 20:22:00 2022-05-08 14:44:00 Emergency JonorBrandyn [facility] 1.0.114 350.1.13.10 4.2.7.2.686 [id number] [facility] 2022-04-13 13:06:00 2022-04-15 15:00:00 Inpatient X CONRAD, [facility] [id number] [facility] 2022-04-13 13:06:00 2022-04-15 15:00:00 Hospital Encounter [facility]apna Vargas [facility]..114 350.1.13.10 4.2.7.2.686 [id number] [facility] 2022-02-19 10:20:00 2022-02-19 10:30:00 Imm/Inj Visit [place] Jose Santiago [facility] 1.0.114 350.1.13.10 4.2.7.2.686 [id number] [facility] 2022-02-19 10:20:00 2022-02-19 10:20:00 Outpatient R JOSE PAK [facility] [id number] [facility] 2021-11-23 15:07:00 2021-11-23 17:03:00 Emergency JORJE BRADYANKITA [facility] ERT [id number] [facility] 2021-11-23 15:07:00 2021-11-23 17:03:00 Emergency Sav Rondon AjNichelle simmons [facility] 1..840.114 350.1.13.10 4.2.7.2.686 [id number] [facility] 2021-11-21 09:40:00 2021-11-21 09:40:00 Outpatient R [facility] [id number] [facility] 2021-05-24 09:30:00 2021-05-24 09:30:00 Outpatient R JOSE PAK [facility] [id number] [facility] 2021-05-24 08:47:51 2021-05-24 08:57:51 Imm/Inj Visit Vaccine, [place] Dangelo Otoniel [facility] 1.840.114 350.1.13.10 4.2.7.2.686 [id number] [facility] 2021-05-03 09:40:00 2021-05-03 09:59:35 Outpatient R JOSE PAK [facility] [id number] [facility] 2021-05-03 09:17:43 2021-05-03 09:59:35 [facility] 1.840.114 350.1.13.10 4.2.7.2.686 [id number] [facility] 2021-04-16 00:00:00 2021-04-16 00:00:00 Orders Only Doctor Unassigned, Hector [facility] 1.2.840.114 350.1.13.10 4.2.7.2.686 [id number] [facility] 2021-03-17 00:00:00 2021-03-17 00:00:00 Telephone Miky Nava [facility] 1.2.840.114 350.1.13.10 4.2.7.2.686 [id number] [facility] 2021-03-16 20:08:00 2021-03-16 23:24:00 Emergency Fabrice Chakraborty [facility] 1.2840.114 350.1.13.10 4.2.7.2.686 [id number] [facility] 2021-03-14 18:59:34 2021-03-14 20:19:13 Urgent Care Lydia Desouza Unknown, Attending Critical access hospital?[facility] 1.2840.114 350.1.13.10 4.2.7.2.686 [id number] [facility] 2021-03-14 19:00:00 2021-03-14 19:00:00 Outpatient R UNKNOWN, ATTENDING [facility] [id number] [facility] 2021-02-19 10:49:00 2021-02-19 14:48:00 Emergency Anali Monroy S [facility] 1.20.114 350.1.13.10 4.2.7.2.686 [id number] [facility] 2019-03-09 00:00:00 2019-03-09 00:00:00 Yehuda Zimmerman [facility] 1.2.840.114 350.1.13.10 4.2.7.2.686 [id number] [facility] 2019-03-09 00:00:00 2019-03-09 00:00:[address] [facility] 1.2.840.114 350.1.13.10 4.2.7.2.686 [id number] Results Test Description Test Time Test Comments Results Result Co mments Source BLOOD [id number] 07:00:10* Test Item Value Reference Range Interpretation Comme nts CULTURE (BEAKER) (test code = 1095) No growth in 5 days XR KNEE 3 VIEWS [id number] 09:27:00 [facility] 1970 Sex: FXR KNEE 3 VIEWS LEFT CLINICAL INDICATION: S/p fall COMPARISON: NoneFINDINGS: 3views of the left knee.There is no fracture or malalignment. The femorotibial andfemoropatellar joint spaces are intact.No joint fluid is demonstrated.Surrounding soft tissues are unremarkable. Scattered atheroscleroticvascular calcifications.IMPRESSION: No acute fracture or malalignment of the knee Electronically Signed By: Maxim Sultana09/08/2023 09:29 CDTWorkstation Name: [id number]-Dtlzcyc [id number] 08:53:50* Test Item Value Reference Range Interpretation Comme nts POC-Glucose Meter (test code = 1538) 101 mg/dL 70-110 : TESTED AT [facility] [address] [facility], [address]: Engineer System Administrator/Supervisor Home Energy Consultant ID = [id number] for Umeh, [place]umbu Lab Interpretation (test code = 12769-6) [facility] [id number] 08:53:50* Test Item Value Reference Range Interpretation Comme nts POC-Glucose Meter (test code = 1538) 101 mg/dL 70-110 : TESTED AT [place] [id number] [facility], [address]: Engineer System Administrator/Supervisor Home Energy Consultant ID = [id number] for Umeh, [place] Lab Interpretation (test code = 96945-7) [facility] [id number] 08:53:50* Test Item Value Reference Range Interpretation Comme nts POC-Glucose Meter (test code = 1538) 101 mg/dL 70-110 : TESTED AT [address], [address]: Engineer System Administrator/Supervisor Home Energy Consultant ID = [id number] for Umeh, [place]umb[place] Lab Interpretation (test code = 72468-4) [facility] [id number] 08:53:50* Test Item Value Reference Range Interpretation Comme nts POC-GLUCOSE METER (BEAKER) (test code = 1538) 101 mg/dL 70-110 : TESTED AT [address], [address]: Engineer System Administrator/Supervisor Home Energy Consultant ID = [id number] for Umeh, [place] BASIC METABOLIC [id number] 05:40:45* Test Item Value Reference Range Interpretation [...] GFR is not applicable for dialysis patients Engineer System Administrator ID - [id number] 05:40:45* Test Item Value Reference Range Interpretation Comme nts MAGNESIUM (BEAKER) (test cod e = 627) 2.1 mg/dL 1.6-2.6 Engineer System Administrator ID - [id number] 05:40:45* Test Item Value Reference Range Interpretation Comme nts PHOSPHORUS (BEAKER) (test co de = 604) 5.0 mg/dL 2.3-4.7 H Engineer System Administrator ID - ADMINCBC W/PLT COUNT & AUTO [id number] 04:49:23* Test Item Value Reference Range Interpretation [...] code = 2801) 0.40 % 0.00-1.00 POCT-GLUCOSE [id number] 21:40:23* Test Item Value Reference Range Interpretation Comme nts POC-GLUCOSE METER (BEAKER) (test code = 1538) 144 mg/dL 70-110 H : TESTED AT [facility] [address] [place] [address], [address]: Engineer System Administrator/Supervisor Home Energy Consultant ID = [id number] for Diana Baeza [id number] 04:05:54* Test Item Value Reference Range Interpretation Comme nts MAGNESIUM (BEAKER) (test code = 627) 2.0 mg/dL 1.6-2.6 Specimen sligh tly hemolyzed Engineer System Administrator ID - MADELINE [id number] 04:05:54* Test Item Value Reference Range Interpretation Comme nts PHOSPHORUS (BEAKER) (test code = 604) 4.5 mg/dL 2.3-4.7 Specimen sligh tly hemolyzed Engineer System Administrator ID - MADELINE WBASIC METABOLIC [id number] 04:05:54* Test Item Value Reference Range Interpretation [...] GFR is not applicable for dialysis patients Engineer System Administrator GEOVANNA Yarelis CORREA WCBC W/PLT COUNT & AUTO [id number] 03:40:48* Test Item Value Reference Range Interpretation [...] code = 2801) 0.30 % 0.00-1.00 POCT-GLUCOSE [id number] 21:28:35* Test Item Value Reference Range Interpretation Comme nts POC-GLUCOSE METER (BEAKER) (test code = 1538) 127 mg/dL 70-110 H : TESTED AT [facility] [address] [facility], [address]: Engineer System Administrator/Supervisor Home Energy Consultant ID = [id number] for Ryan Morin POCT-GLUCOSE [id number] 18:49:21* Test Item Value Reference Range Interpretation Comme nts POC-GLUCOSE METER (BEAKER) (test code = 1538) 122 mg/dL 70-110 H : TESTED AT [facility] [address] [facility], [address]: Engineer System Administrator/Supervisor Home Energy Consultant ID = [id number] for Lauren Santillan POCT-GLUCOSE [id number] 13:27:27* Test Item Value Reference Range Interpretation Comme nts POC-GLUCOSE METER (BEAKER) (test code = 1538) 130 mg/dL 70-110 H : TESTED AT [facility] [address] [facility], [address]: Engineer System Administrator/Supervisor Home Energy Consultant ID = [id number] for Lauren Santillan [id number] 09:09:14* Test Item Value Reference Range Interpretation Comme nts MAGNESIUM (BEAKER) (test cod e = 627) 2.2 mg/dL 1.6-2.6 [id number] 09:09:14* Test Item Value Reference Range Interpretation Comme nts PHOSPHORUS (BEAKER) (test co de = 604) 4.8 mg/dL 2.3-4.7 H BASIC METABOLIC [id number] 09:09:14* Test Item Value Reference Range Interpretation [...] is not applicable for dialysis patients POCT-GLUCOSE [id number] 08:33:30* Test Item Value Reference Range Interpretation Comme nts POC-GLUCOSE METER (BEAKER) (test code = 1538) 132 mg/dL 70-110 H : TESTED AT [facility] [address] [place] [place], [address]: Engineer System Administrator/Supervisor Home Energy Consultant ID = [id number] for Lauren Santillan CBC W/PLT COUNT & AUTO [id number] 05:47:59* Test Item Value Reference Range Interpretation [...] code = 2801) 0.40 % 0.00-1.00 POCT-GLUCOSE [id number] 21:35:37* Test Item Value Reference Range Interpretation Comme nts POC-GLUCOSE METER (BEAKER) (test code = 1538) 129 mg/dL 70-110 H : TESTED AT [facility] [address] [facility], [address]: Engineer System Administrator/Supervisor Home Energy Consultant ID = [id number] for Ryan Morin MR BRAIN WITH & WITHOUT IV [id number] 15:49:58 [facility] : 1970 Sex: FMR BRAIN WITH & [...] Signed By: Zeinab Dempsey09/05/2023 15:53 CDTWorkstation Name: [id number] METER 2023-09-05 08:34:25* Test Item Value Reference Range Interpretation Comme nts POC-GLUCOSE METER (BEAKER) (test code = 1538) 115 mg/dL 70-110 H : TESTED AT [facility] [address] [place] [place], [address]: Engineer System Administrator/Supervisor Home Energy Consultant ID = [id number] for DOMINGA AMADOR BASIC METABOLIC [id number] 06:06:56* Test Item Value Reference Range Interpretation [...] GFR is not applicable for dialysis patients Engineer System Administrator ID - [id number] 06:06:56* Test Item Value Reference Range Interpretation Comme nts MAGNESIUM (BEAKER) (test cod e = 627) 2.2 mg/dL 1.6-2.6 Engineer System Administrator ID - FOMSONJOANYXEGU3658-53-72 06:06:56* Test Item Value Reference Range Interpretation Comme nts PHOSPHORUS (BEAKER) (test co de = 604) 3.8 mg/dL 2.3-4.7 Engineer System Administrator ID - ADMINCBC W/PLT COUNT & AUTO [id number] 05:29:32* Test Item Value Reference Range Interpretation [...] code = 2801) 0.50 % 0.00-1.00 POCT-GLUCOSE [id number] 04:55:18* Test Item Value Reference Range Interpretation Comme nts POC-GLUCOSE METER (BEAKER) (test code = 1538) 99 mg/dL 70-110 : TESTED AT [facility] [address] [facility], [address]: Engineer System Administrator/Supervisor Home Energy Consultant ID = [id number] for Ryan Morin POCT-GLUCOSE [id number] 21:49:23* Test Item Value Reference Range Interpretation Comme nts POC-GLUCOSE METER (BEAKER) (test code = 1538) 124 mg/dL 70-110 H : TESTED AT [address], [address]: Engineer System Administrator/Supervisor Home Energy Consultant ID = [id number] for Rosa Morinn POCT-GLUCOSE [id number] 15:55:53* Test Item Value Reference Range Interpretation Comme nts POC-GLUCOSE METER (BEAKER) (test code = 1538) 126 mg/dL 70-110 H : TESTED AT [address], [address]: Engineer System Administrator/Supervisor Home Energy Consultant ID = [id number] for Tramaine Daniels [id number] 12:37:56* Test Item Value Reference Range Interpretation Comme nts PROCALCITONIN (BEAKER) (test code = 3036) < ng/mL <0.05 SEPSIS RISK (ng/mL)Low: 0.05-0.50Intermediate: 0.51-2.00High: >=2.01SARS- CoV2/Influenza/RSV [id number] 12:18:09* Test Item Value Reference Range Interpretation Comments SARS-COV2/RT-PCR (test code = 76563-9) Negative Negative The SARS-CoV-2 target nucleic acids [...] provider. Influenza A RT-PCR (test code = 05180-5) Negative Negative The Flu A target nucleic acids are not detected in this specimen. Influenza B RT-PCR (test code = 30350-6) Negative Negative The Flu B target nucleic acids are not detected in this specimen. RSV by RT-PCR (test code = 66490-8) Negative Negative The RSV target nucleic acids [...] the Act. Fact Sheet for Healthcare Providers:https://w [employer]/Docu ments/Xpert%20Xpres s%20SARS%20CoV-2/Fa ct%20Sheets/302-390 2%07LNHU-ZMY-6%20HE ALTHCARE%20PROVIDER S%20FACT%20SHEET.pd f Fact Sheet for Healthcare Patients:https://ww [employer]/Docum ents/Xpert%20Xpress %20SARS%20Cov-2/Fac t%20Sheets/302-3801 %41FRID-LCJ-0%20PAT IENT%20FACT%20SHEET .pdf Lab Interpretation (test code = 46405-3) [facility] [id number] 12:18:09* Test Item Value Reference Range Interpretation Comments SARS-COV2/RT-PCR (test code = 02714-6) Negative Negative The SARS-CoV-2 target nucleic acids [...] provider. Influenza A RT-PCR (test code = 54147-1) Negative Negative The Flu A target nucleic acids are not detected in this specimen. Influenza B RT-PCR (test code = 29121-3) Negative Negative The Flu B target nucleic acids are not detected in this specimen. RSV by RT-PCR (test code = 24450-2) Negative Negative The RSV target nucleic acids [...] the Act. Fact Sheet for Healthcare Providers:https://w [employer]/Docu ments/Xpert%20Xpres s%20SARS%20CoV-2/Fa ct%20Sheets/302-390 2%86GLFI-QYB-8%20HE ALTHCARE%20PROVIDER S%20FACT%20SHEET.pd f Fact Sheet for Healthcare Patients:https://maria elena [employer]/Docum ents/Xpert%20Xpress %20SARS%20Cov-2/Fac t%20Sheets/302-3801 %60URDE-YZR-1%20PAT IENT%20FACT%20SHEET .pdf Lab Interpretation (test code = 87866-7) [facility] [id number] 12:18:09* Test Item Value Reference Range Interpretation Comments SARS-COV2/RT-PCR (test code = 28590-7) Negative Negative The SARS-CoV-2 target nucleic acids [...] provider. Influenza A RT-PCR (test code = 45894-8) Negative Negative The Flu A target nucleic acids are not detected in this specimen. Influenza B RT-PCR (test code = 15328-8) Negative Negative The Flu B target nucleic acids are not detected in this specimen. RSV by RT-PCR (test code = 02806-2) Negative Negative The RSV target nucleic acids [...] their healthcare provider. Results from [facility] Xpert Xpress SARS-CoV-2/Flu/RSV test should be correlated [...] the Act. Fact Sheet for Healthcare Providers:https://w [employer]/Docu ments/Xpert%20Xpres s%20SARS%20CoV-2/Fa ct%20Sheets/302-390 2%96BORG-SCK-6%20HE ALTHCARE%20PROVIDER S%20FACT%20SHEET.pd f Fact Sheet for Healthcare Patients:https://maria elena [employer]/Docum ents/Xpert%20Xpress %20SARS%20Cov-2/Fac t%20Sheets/302-3801 %92HJIL-EOQ-4%20PAT IENT%20FACT%20SHEET .pdf Lab Interpretation (test code = 42130-0) [facility]ZA[facility]RSV [id number] 12:18:09* Test Item Value Reference Range Interpretation Comme nts SARS-COV2/RT-PCR (test code = 6053478) Negative Negative The SARS-CoV-2 t arget nucleic [...] provider. INFLUENZA A RT-PCR (test code = 0496027) Negative Negative The Flu A target nucleic acids are not detected in this specimen. INFLUENZA B RT-PCR (test code = 4638064) Negative Negative The Flu B target nucleic acids are not detected in this specimen. RSV RT-PCR (test code = 2554935) Negative Negative The RSV target n ucleic [...] 564(g) of the Act.Fact Sheet for Healthcare Providers:https://www.[employer].[place]/Documents/Xpert%20Xpress%20SARS%20CoV-2/Fact%2 0Sheets/302-3902%02OIPA-ZDC-2%20HEALTHCARE%20PROVIDERS%20FACT%20SHEET.pdfFact Sheet for Healthcare Patients:https://ww w.[employer]/Documents/Xpert%20Xpress%20SARS%20Cov-2/Fact%20Sheets/302-3801%20S ARS-COV-2%20PATIENT%20FACT%20SHEET.pdfPOCT-GLUCOSE [id number] 11:08:35* Test Item Value Reference Range Interpretation Comme nts POC-GLUCOSE METER (BEAKER) (test code = 1538) 111 mg/dL 70-110 H : TESTED AT [facility] [address] [facility], [address]: Engineer System Administrator/Supervisor Home Energy Consultant ID = [id number] for Hemvalentina, Tramaine POCT-GLUCOSE [id number] 08:16:42* Test Item Value Reference Range Interpretation Comme nts POC-GLUCOSE METER (BEAKER) (test code = 1538) 108 mg/dL 70-110 : TESTED AT [facility] [address] [facility], [address]: Engineer System Administrator/Supervisor Home Energy Consultant ID = [id number] for Beata Vargas MR CERVICAL SPINE WITHOUT IV [id number] 07:58:49 [facility] 1970 Sex: FMR [...] spine.Posterior ligament ossifications at the calcifications at P26-Z07kdlttrq moderate spinal canal stenosisPosterior disc osteophyte at the T11-T12 level causing mild spinal canalstenosisThe spinal cord is normal in caliber and signal intensity. There is no significant foraminal or spinal canal stenosis.2.1 x 2.3 cm left adrenal nodule, incompletely characterizedParaspinal soft tissues are unremarkable.Lumbar spine:Postoperative changes from posterior decompression at the L3 and Y9jmqpuk. A 1.3 x 1.5 cm (AP by [...] Signed By: Maxim Sultana09/04/2023 08:00 CDTWorkstation Name: [id number] THORACIC SPINE WITHOUT IV [id number] 07:58:49 [facility] HEATHERGRACIELA MCCABE : 1970 Sex: FMR LUMBAR SPINE WITHOUT [...] spine.Posterior ligament ossifications at the calcifications at Z73-V41mbdlicp moderate spinal canal stenosisPosterior disc osteophyte at the T11-T12 level causing mild spinal canalstenosisThe spinal cord is normal in caliber and signal intensity. There is no significant foraminal or spinal canal stenosis.2.1 x 2.3 cm left adrenal nodule, incompletely characterizedParaspinal soft tissues are unremarkable.Lumbar spine:Postoperative changes from posterior decompression at the L3 and G6qxjwgc. A 1.3 x 1.5 cm (AP by [...] Signed By: Maxim Sultana09/04/2023 08:00 CDTWorkstation Name: [id number] LUMBAR SPINE WITHOUT IV [id number] 07:58:49 [facility] : 1970 Sex: FMR [...] spine.Posterior ligament ossifications at the calcifications at W59-O50kjeqpqu moderate spinal canal stenosisPosterior disc osteophyte at the T11-T12 level causing mild spinal canalstenosisThe spinal cord is normal in caliber and signal intensity. There is no significant foraminal or spinal canal stenosis.2.1 x 2.3 cm left adrenal nodule, incompletely characterizedParaspinal soft tissues are unremarkable.Lumbar spine:Postoperative changes from posterior decompression at the L3 and F4bugvkp. A 1.3 x 1.5 cm (AP by [...] Signed By: Maxim Sultana09/04/2023 08:00 CDTWorkstation Name: [id number] 2023-09-04 07:46:14* Test Item Value Reference Range Interpretation Comme nts FERRITIN (BEAKER) (test code = 361) 31.77 ng/mL 5.00-275.00 Engineer System Administrator ID - hgIRON, TIBC, % SAT. (WITHOUT FERRITIN)2023-09-04 07:24:52* Test Item Value Reference Range Interpretation Comme nts IRON (BEAKER) (test code = 547) 22.0 ug/dL 40.0-160.0 L TOTAL IRON BINDING CAPACITY (BEAKER) (test code = 769) 369 ug/dL 250-450 IRON % SATURATION (2) (BEAKE R) (test code = 2590) 6 % 20-55 L Engineer System Administrator ID - hgCT LUMBAR SPINE WITHOUT IV [id number] 05:42:45 [facility] 1970 Sex: FEXAM: CT [...] spine:Bones/alignment: Age- indeterminate nondisplaced fracture of the U4wqlqrylxq elements, predominantly i nvolving the lamina and [...] Signed By: Suzan Weaver09/04/2023 05:45 CDTWorkstation Name: [id number] THORACIC SPINE WITHOUT IV [id number] 05:42:45 [facility] : 1970 Sex: FEXAM: [...] spine:Bones/alignment: Age- indeterminate nondisplaced fracture of the X3ayjjzkmpu elements, predominantly i nvolving the lamina and [...] Signed By: Suzan Weaver09/04/2023 05:45 CDTWorkstation Name: [id number] 04:44:34* Test Item Value Reference Range Interpretation Comme nts FIBRINOGEN LEVEL (BEAKER) (t est code = 658) 410 mg/dl 225-434 Urinalysis without Lruwusjpseq5913-29-91 03:58:52* Test Item Value Reference Range Interpretation Comme nts Color, UA (test code = 5778-6) Light Yellow Clarity, UA (test code = 5767-9) Hazy Specific [place], UA (test code = 5811-5) 1.017 1.001-1.035 pH, UA (test code = 5803-2) 6.0 5.0-8.0 Protein, UA (test code = 54600-2) 10 mg/dL Negative A Glucose, UA (test code = 365) Negative Negative Ketones, UA (test code = 2514-8) Trace Negative A Bilirubin, UA (test code = 60117-5) Negative Negative Blood, UA (test code = 62987-1) Trace Negative A Nitrite, UA (test code = 5802-4) Negative Negative Leukocytes, UA (test code = 5799-2) Negative Negative Urobilinogen, UA (test code = 22576-9) 0.2 0.2-1.0 Specimen Source (test code = 2795) LYNDSAY (test code = LYNDSAY) Engineer System Administrator ID - [auto]Engineer System Administrator ID - tech Lab Interpretation (test code = 86066-7) [facility] Gsipglrvuhu0527-25-98 03:58:52* Test Item Value Reference Range Interpretation Comme nts Color, UA (test code = 5778-6) Light Yellow Clarity, UA (test code = 5767-9) Hazy Specific [place], UA (test code = 5811-5) 1.017 1.001-1.035 pH, UA (test code = 5803-2) 6.0 5.0-8.0 Protein, UA (test code = 21560-9) 10 mg/dL Negative A Glucose, UA (test code = 365) Negative Negative Ketones, UA (test code = 2514-8) Trace Negative A Bilirubin, UA (test code = 81048-5) Negative Negative Blood, UA (test code = 62287-6) Trace Negative A Nitrite, UA (test code = 5802-4) Negative Negative Leukocytes, UA (test code = 5799-2) Negative Negative Urobilinogen, UA (test code = 96650-7) 0.2 0.2-1.0 Specimen Source (test code = 2795) LYNDSAY (test code = LYNDSAY) Engineer System Administrator ID - [auto]Engineer System Administrator ID - tech Lab Interpretation (test code = 50327-2) [facility]normal [facility] Egjnlasytmm5403-82-21 03:58:52* Test Item Value Reference Range Interpretation Comme nts Color, UA (test code = 5778-6) Light Yellow Clarity, UA (test code = 5767-9) Hazy Specific [place], UA (test code = 5811-5) 1.017 1.001-1.035 pH, UA (test code = 5803-2) 6.0 5.0-8.0 Protein, UA (test code = 83275-0) 10 mg/dL Negative A Glucose, UA (test code = 365) Negative Negative Ketones, UA (test code = 2514-8) Trace Negative A Bilirubin, UA (test code = 06475-1) Negative Negative Blood, UA (test code = 83341-6) Trace Negative A Nitrite, UA (test code = 5802-4) Negative Negative Leukocytes, UA (test code = 5799-2) Negative Negative Urobilinogen, UA (test code = 84682-1) 0.2 0.2-1.0 Specimen Source (test code = 2795) LYNDSAY (test code = LYNDSAY) Engineer System Administrator ID - [auto]Engineer System Administrator ID - tech Lab Interpretation (test code = 36064-9) [facility] [id number] 03:58:52* Test Item Value Reference Range Interpretation [...] 0.2 0.2-1.0 SOURCE(BEAKER) (test code = 2795) Engineer System Administrator ID - [auto]Engineer System Administrator ID - techCBC W/PLT COUNT & AUTO [...] 2801) 0.70 % 0.00-1.00 Rapid drug screen, [id number] 02:20:15* Test Item Value Reference Range Interpretation Comme nts Barbiturate Screen (test code = 72797-4) Negative Negative Benzodiazepine Screen (test code = 18921-9) Negative Negative Cocaine (Metab.) Screen (test code = 3397-7) Positive Negative A Methadone Screen (test code = 65937-0) Negative Negative Opiate Screen (test code = 82836-7) Negative Negative Cannabinoid Screen (test code = 95708-6) Positive Negative A Amph/Methamph Screen (test code = 90240-6) Negative Negative Phencyclidine Screen (test code = 09090-5) Negative Negative pH, UA (test code = 5803-2) 6.0 5.0-8.0 LYNDSAY (test code = LYNDSAY) DRUG CUTOFF CONC.Cocaine 300 ng/mL Cannabinoid 50 ng/mLBenzodiazepine 200 ng/mLBarbiturate 200 ng/mLPhencyclidine 25 ng/mLOpiate 300 ng/mLMethadone 300 ng/mLAmphetamine/ 1000 ng/mL Methamphetamine This assay provides an unconfirmed qualitative test result for the clinical management of patients in emergency situations. Chain of custody not maintained. Some hytn-tct-pvzzlap medications, as well as adulterants, may cause inaccurate results. Clinical correlation should be applied. A more comprehensive drug screen or confirmation of a detected drug may be performed upon request.Engineer System Administrator ID - ADMIN Lab Interpretation (test code = 62470-1) [facility] [place], [id number] 02:20:15* Test Item Value Reference Range Interpretation Comme nts Barbiturate Screen (test code = 59642-2) Negative Negative Benzodiazepine Screen (test code = 39866-0) Negative Negative Cocaine (Metab.) Screen (test code = 3397-7) Positive Negative A Methadone Screen (test code = 41258-0) Negative Negative Opiate Screen (test code = 30509-0) Negative Negative Cannabinoid Screen (test code = 24584-3) Positive Negative A Amph/Methamph Screen (test code = 97575-7) Negative Negative Phencyclidine Screen (test code = 57463-2) Negative Negative pH, UA (test code = 5803-2) 6.0 5.0-8.0 LYNDSAY (test code = LYNDSAY) DRUG CUTOFF CONC.Cocaine 300 ng/mL Cannabinoid 50 ng/mLBenzodiazepine 200 ng/mLBarbiturate 200 ng/mLPhencyclidine 25 ng/mLOpiate 300 ng/mLMethadone 300 ng/mLAmphetamine/ 1000 ng/mL Methamphetamine This assay provides an unconfirmed qualitative test result for the clinical management of patients in emergency situations. Chain of custody not maintained. Some rfdq-zph-efotiav medications, as well as adulterants, may cause inaccurate results. Clinical correlation should be applied. A more comprehensive drug screen or confirmation of a detected drug may be performed upon request.Engineer System Administrator ID - ADMIN Lab Interpretation (test code = 92850-4) [facility] [id number] 02:20:15* Test Item Value Reference Range Interpretation Comme nts Barbiturate Screen (test code = 85173-8) Negative Negative Benzodiazepine Screen (test code = 16317-3) Negative Negative Cocaine (Metab.) Screen (test code = 3397-7) Positive Negative A Methadone Screen (test code = 47756-2) Negative Negative Opiate Screen (test code = 25527-3) Negative Negative Cannabinoid Screen (test code = 35784-8) Positive Negative A Amph/Methamph Screen (test code = 62829-6) Negative Negative Phencyclidine Screen (test code = 35258-4) Negative Negative pH, UA (test code = 5803-2) 6.0 5.0-8.0 LYNDSAY (test code = LYNDSAY) DRUG CUTOFF CONC.Cocaine 300 ng/mL Cannabinoid 50 ng/mLBenzodiazepine 200 ng/mLBarbiturate 200 ng/mLPhencyclidine 25 ng/mLOpiate 300 ng/mLMethadone 300 ng/mLAmphetamine/ 1000 ng/mL Methamphetamine This assay provides an unconfirmed qualitative test result for the clinical management of patients in emergency situations. Chain of custody not maintained. Some pucu-ase-vhstfwk medications, as well as adulterants, may cause inaccurate results. Clinical correlation should be applied. A more comprehensive drug screen or confirmation of a detected drug may be performed upon request.Engineer System Administrator ID - ADMIN Lab Interpretation (test code = 81486-3) [facility]normal [facility] [id number] 02:20:15* Test Item Value Reference Range Interpretation [...] situations. Chain of custody not maintained. Some mvjr-fwa-pjfjkcq medications, as well as adulterants, may cause inaccurate results. Clinical correlation should be applied. A more comprehensive drug screen or confirmation of a detected drug may be performed upon request.Engineer System Administrator ID - ADMINB-TYPE NATRIURETIC FACTOR (BNP)2023-09-04 02:11:53* Test Item Value Reference Range Interpretation Comme nts B-TYPE NATRIURETIC PEPTIDE (BEAKER) (test code = 700) 1761 pg/mL 0-100 H Engineer System Administrator ID - ADMINLACTIC ACID, [id number] 02:10:37* Test Item Value Reference Range Interpretation Comme nts LACTATE BLOOD VENOUS (2) (BEAKER) (test code = 2872) 1.04 mmol/L 0.50-2.00 Specimen slightl y hemolyzed Engineer System Administrator ID - VFQCZLVSHWVYYOB1703-04-44 02:04:37* Test Item Value Reference Range Interpretation Comme nts PHOSPHORUS (BEAKER) (test code = 604) 4.2 mg/dL 2.3-4.7 Specimen sligh tly hemolyzed Engineer System Administrator ID - ADMINCOMPREHENSIVE METABOLIC [id number] 02:04:37* Test Item Value Reference Range Interpretation [...] GFR is not applicable for dialysis patients Engineer System Administrator ID - [id number] 02:04:36* Test Item Value Reference Range Interpretation Comme nts MAGNESIUM (BEAKER) (test code = 627) 2.1 mg/dL 1.6-2.6 Specimen sligh tly hemolyzed Engineer System Administrator ID - DCAZQR-MGOXF7447-01-16 01:45:13* Test Item Value Reference Range Interpretation Comme nts D-DIMER QUANTITATIVE (LINNEAAKER ) (test code = 671) 0.62 MG/L [...] 01:42:56* Test Item Value Reference Range Interpretation Comme nts PARTIAL THROMBOPLASTIN TIME (BEAKER) (test code = 760) 28.5 seconds 22.5-36.0 PROTHROMBIN TIME/[id number] 01:42:15* Test Item Value Reference Range Interpretation Comme nts PROTIME (BEAKER) (test code = 759) 15.8 seconds 11.9-14.2 H INR (BEAKER) (test code = 370) 1.25 <=5.90 RECOMMENDED COUMADIN/WARFARIN INR THERAPY RANGESSTANDARD DOSE: 2.0 - 3.0 Includes: PROPHYLAXIS for venous thrombosis, systemic embolization; TREATMENT for venous thrombosis and/or pulmonary embolus.HIGH RISK: Target INR is 2.5-3.5 for patients with mechanical heart valves.Lactic Acid Whole Enrys4204-87-16 20:51:22* Test Item Value Reference Range Interpretation Comme nts LACTIC ACID (test code = 1493360183) 1.56 mmol/L 0.50-2.20 Lab Interpretation (test cod e = 96822-3) [facility] [id number] 07:00:09* Test Item Value Reference Range Interpretation Comme nts CULTURE (BEAKER) (test code = 1095) No growth in 5 days BLOOD [id number] 07:00:09* Test Item Value Reference Range Interpretation Comme nts CULTURE (BEAKER) (test code = 1095) No growth in 5 days T-SPOT(R).[id number] 18:35:00* Test Item Value Reference Range Interpretation Comme nts T-SPOT.TB (test code = 4222965) Negative SeeBelow Normal Value: Ne gativeA negative [...] CORRECTED FOR NEG CONTROL (test code = 4137248) 1 PANEL B SPOT COUNT CORRECTED FOR NEG CONTROL (test code = 8933240) 0 NEGATIVE CONTROL (test code = 6833510) Passed POSITIVE CONTROL (test code = 3961912) Passed LYNDSAY (test code = LYNDSAY) [id number] [facility][id number] 18:35:00* Test Item Value Reference Range Interpretation Comme nts T-SPOT.TB (test code = 2025513) Negative SeeBelow Normal Value: Ne gativeA negative [...] CORRECTED FOR NEG CONTROL (test code = 6167474) 1 PANEL B SPOT COUNT CORRECTED FOR NEG CONTROL (test code = 7146547) 0 NEGATIVE CONTROL (test code = 2492896) Passed POSITIVE CONTROL (test code = 3759713) Passed LYNDSAY (test code = LYNDSAY) [id number] [facility]).[id number] 18:35:00* Test Item Value Reference Range Interpretation Comme nts T-SPOT.TB (test code = 1479756) Negative SeeBelow Normal Value: Ne gativeA negative [...] 20150906) Passed POSITIVE CONTROL (test code = 8678861) Passed LYNDSAY (test code = LYNDSAY) [id number] [facility]).[id number] 18:35:00* Test Item Value Reference Range Interpretation Comme nts T-SPOT.TB (test code = 0860944) Negative SeeBelow Normal Value: Ne gativeA negative [...] 20150905) 0 NEGATIVE CONTROL (test code = 8874276) Passed POSITIVE CONTROL (test code = 20150907) Passed LYNDSAY (test code = LYNDSAY) [id number] [facility]).[id number] 18:35:00* Test Item Value Reference Range Interpretation [...] CORRECTED FOR NEG CONTROL (test code = 7463137) 0 NEGATIVE CONTROL (test code = 1667764) Passed POSITIVE CONTROL (test code = 7619375) Passed LYNDSAY (test code = LYNDASY) [id number] [facility]).[id number] 18:35:00* Test Item Value Reference Range Interpretation [...] 20150905) 0 NEGATIVE CONTROL (test code = 0994009) Passed POSITIVE CONTROL (test code = 20150907) Passed LYNDSAY (test code = LYNDSAY) [id number] [facility]).[id number] 18:35:00* Test Item Value Reference Range Interpretation Comme nts T-SPOT.TB (test code = 2691931) Negative SeeBelow Normal Value: Ne gativeA negative [...] CORRECTED FOR NEG CONTROL (test code = 7321950) 0 NEGATIVE CONTROL (test code = 9022171) Passed POSITIVE CONTROL (test code = 7965015) Passed LYNDSAY (test code = LYNDSAY) [id number] [facility]).[id number] 18:35:00* Test Item Value Reference Range Interpretation Comme nts T-SPOT.TB (test code = 0764699) Negative SeeBelow Normal Value: Ne gativeA negative [...] CORRECTED FOR NEG CONTROL (test code = 8892671) 1 PANEL B SPOT COUNT CORRECTED FOR NEG CONTROL (test code = 5533444) 0 NEGATIVE CONTROL (test code = 8059216) Passed POSITIVE CONTROL (test code = 9555039) Passed LYNDSAY (test code = LYNDSAY) [id number] [facility]).[id number] 18:35:00* Test Item Value Reference Range Interpretation Comme nts T-SPOT.TB (test code = 3139467) Negative SeeBelow Normal Value: Ne gativeA negative [...] CORRECTED FOR NEG CONTROL (test code = 0133607) 1 PANEL B SPOT COUNT CORRECTED FOR NEG CONTROL (test code = 6896744) 0 NEGATIVE CONTROL (test code = 8117564) Passed POSITIVE CONTROL (test code = 9496039) Passed LYNDSAY (test code = LYNDSAY) [id number] [facility][id number] 18:35:00* Test Item Value Reference Range Interpretation [...] CORRECTED FOR NEG CONTROL (test code = 2556482) 0 NEGATIVE CONTROL (test code = 0859349) Passed POSITIVE CONTROL (test code = 20150907) Passed LYNDSAY (test code = LYNDSAY) [id number] [facility][id number] 18:35:00* Test Item Value Reference Range Interpretation [...] CORRECTED FOR NEG CONTROL (test code = 5198340) 0 NEGATIVE CONTROL (test code = 3106974) Passed POSITIVE CONTROL (test code = 20150907) Passed LYNDSAY (test code = LYNDSAY) [id number] [facility]).[id number] 18:35:00* Test Item Value Reference Range Interpretation [...] CORRECTED FOR NEG CONTROL (test code = 0997359) 0 NEGATIVE CONTROL (test code = 4109099) Passed POSITIVE CONTROL (test code = 6499802) Passed LYNDSAY (test code = LYNDSAY) [id number] [facility]).[id number] 18:35:00* Test Item Value Reference Range Interpretation Comme nts T-SPOT.TB (test code = 1777057) Negative SeeBelow Normal Value: Ne gativeA negative [...] CORRECTED FOR NEG CONTROL (test code = 6622942) 1 PANEL B SPOT COUNT CORRECTED FOR NEG CONTROL (test code = 2042811) 0 NEGATIVE CONTROL (test code = 4125763) Passed POSITIVE CONTROL (test code = 6324475) Passed LYNDSAY (test code = LYNDSAY) [id number] [facility][id number] 18:35:00* Test Item Value Reference Range Interpretation Comme nts T-SPOT.TB (test code = 1998239) Negative SeeBelow Normal Value: Ne gativeA negative [...] CORRECTED FOR NEG CONTROL (test code = 1563072) 1 PANEL B SPOT COUNT CORRECTED FOR NEG CONTROL (test code = 0013309) 0 NEGATIVE CONTROL (test code = 8305740) Passed POSITIVE CONTROL (test code = 0330940) Passed LYNDSAY (test code = LYNDSAY) [id number] [facility][id number] 18:35:00* Test Item Value Reference Range Interpretation Comme [facility] T-SPOT.TB (test code = 73759-6) Negative SeeBelow Normal Value: Ne gativeA negative [...] CORRECTED FOR NEG CONTROL (test code = 96273-2) 0 NEGATIVE CONTROL (test code = 27801-6) Passed POSITIVE CONTROL (test code = 67292-4) Passed LYNDSAY (test code = LYNDSAY) [id number] [facility][id number] 18:35:00* Test Item Value Reference Range Interpretation Comme nts T-SPOT.TB (test code = 11555-5) Negative SeeBelow Normal Value: Ne gativeA negative [...] CORRECTED FOR NEG CONTROL (test code = 91939-2) 0 NEGATIVE CONTROL (test code = 51713-3) Passed POSITIVE CONTROL (test code = 31631-7) Passed LYNDSAY (test code = LYNDSAY) [id number] [facility][id number] 18:35:00* Test Item Value Reference Range Interpretation Comme nts T-SPOT.TB (test code = 21834-7) Negative SeeBelow Normal Value: Ne gativeA negative [...] CORRECTED FOR NEG CONTROL (test code = 63707-9) 0 NEGATIVE CONTROL (test code = 71619-7) Passed POSITIVE CONTROL (test code = 84803-5) Passed LYNDSAY (test code = LYNDSAY) [id number] [facility][id number] 18:35:00* Test Item Value Reference Range Interpretation Comme nts T-SPOT.TB (test code = 49408-8) Negative SeeBelow Normal Value: Ne gativeA negative [...] CORRECTED FOR NEG CONTROL (test code = 44799-6) 0 NEGATIVE CONTROL (test code = 51629-4) Passed POSITIVE CONTROL (test code = 90014-6) Passed LYNDSAY (test code = LYNDSAY) [id number] [facility][id number] 18:35:00* Test Item Value Reference Range Interpretation Comme nts T-SPOT.TB (test code = 92802-3) Negative SeeBel Normal Value: Ne gativeA negative test result [...] CORRECTED FOR NEG CONTROL (test code = 68927-0) 0 NEGATIVE CONTROL (test code = 11291-5) Passed POSITIVE CONTROL (test code = 46283-6) Passed LYNDSAY (test code = LYNDSAY) [id number] [facility][id number] 18:35:00* Test Item Value Reference Range Interpretation Comme nts T-SPOT.TB (test code = 56485-7) Negative SeeBelow Normal Value: Ne gativeA negative [...] CORRECTED FOR NEG CONTROL (test code = 50692-1) 0 NEGATIVE CONTROL (test code = 95415-8) Passed POSITIVE CONTROL (test code = 56841-7) Passed LYNDSAY (test code = LYNDSAY) [id number] [facility]).[id number] 18:35:00* Test Item Value Reference Range Interpretation Comme nts T-SPOT.TB (test code = 24900-3) Negative SeeBelow Normal Value: Ne gativeA negative [...] CORRECTED FOR NEG CONTROL (test code = 69274-8) 0 NEGATIVE CONTROL (test code = 38198-2) Passed POSITIVE CONTROL (test code = 70043-7) Passed LYNDSAY (test code = LYNDSAY) [id number] [facility][id number] 18:35:00* Test Item Value Reference Range Interpretation Comme nts T-SPOT.TB (test code = 89482-0) Negative SeeBelow Normal Value: Ne gativeA negative [...] CORRECTED FOR NEG CONTROL (test code = 48290-0) 0 NEGATIVE CONTROL (test code = 58229-9) Passed POSITIVE CONTROL (test code = 30136-1) Passed LNYDSAY (test code = LYNDSAY) [id number] [facility]).[id number] 18:35:00* Test Item Value Reference Range Interpretation Comme nts T-SPOT.TB (test code = 36362-7) Negative SeeBelow Normal Value: Ne gativeA negative [...] CORRECTED FOR NEG CONTROL (test code = 41644-8) 0 NEGATIVE CONTROL (test code = 44636-0) Passed POSITIVE CONTROL (test code = 00618-5) Passed LYNDSAY (test code = LYNDSAY) [id number] [facility][id number] 18:35:00* Test Item Value Reference Range Interpretation Comme nts T-SPOT.TB (test code = 9645693) Negative SeeBelow Normal Value: Ne gativeA negative [...] CORRECTED FOR NEG CONTROL (test code = 3679805) 1 PANEL B SPOT COUNT CORRECTED FOR NEG CONTROL (test code = 4323212) 0 NEGATIVE CONTROL (test code = 4494087) Passed POSITIVE CONTROL (test code = 4567138) Passed LYNDSAY (test code = LYNDSAY) [id number] [facility][id number] 18:35:00* Test Item Value Reference Range Interpretation Comme nts T-SPOT.TB (test code = 5623260) Negative SeeBelow Normal Value: Ne gativeA negative [...] 20150905) 0 NEGATIVE CONTROL (test code = 2855590) Passed POSITIVE CONTROL (test code = 20150907) Passed LYNDSAY (test code = LYNDSAY) [id number] [facility][id number] 18:35:00* Test Item Value Reference Range Interpretation Comme nts T-SPOT.TB (test code = 20150903) Negative SeeBel Normal Value: Ne gativeA negative test result [...] 20150905) 0 NEGATIVE CONTROL (test code = 7911952) Passed POSITIVE CONTROL (test code = 2618787) Passed LYNDSAY (test code = LYNDSAY) [id number] [facility]Trans[facility] rngl0654-56-62 13:41:18 Transesophageal Echocardiography Report (CHETAN) Demographics Patient Name YUE LAWS Date of Study 06/16/2023 ESTELLE Gender Female Visit Number [id number] Race Room Number 1055 Number Date of 1970 Referring Physician Age 53 year(s) Wage Conciliator Interpreting Physician Brian MDProcedure Type of Study [...] probe was passed and only the initial 4-samia maría view was obtained, the patient became agitated, [...] Technically adequate exam. Aortic Valve Not visualized. MitralValve Mild MV leaflet thickening. Mild mitral regurgitation. No obvious masses on the mitral valve.Tricuspid Valve Partially visualized. Pulmonic Valve Not visualized.[facility] vlflkm8110-76-26 09:55:41* Test Item Value Reference Range Interpretation Comme nts Result (test code = 6463-4) No MRSA isolated [facility] duaycx4631-88-42 09:55:41* Test Item Value Reference Range Interpretation Comme nts Result (test code = 6463-4) No MRSA isolated [facility] deijzr9287-78-81 09:55:41* Test Item Value Reference Range Interpretation Comme nts Result (test code = 6463-4) No MRSA isolated [facility] pledxe6414-62-88 09:55:41* Test Item Value Reference Range Interpretation Comme nts Result (test code = 6463-4) No MRSA isolated [facility] byjoak5485-00-55 09:55:41* Test Item Value Reference Range Interpretation Comme nts Result (test code = 6463-4) No MRSA isolated [facility] nlznty6762-78-62 09:55:41* Test Item Value Reference Range Interpretation Comme nts Result (test code = 6463-4) No MRSA isolated [facility] jwmcoy9565-35-94 09:55:41* Test Item Value Reference Range Interpretation Comme nts Result (test code = 6463-4) No MRSA isolated [facility] iuputo4724-54-63 09:55:41* Test Item Value Reference Range Interpretation Comme nts Result (test code = 6463-4) No MRSA isolated [facility] tviwan1004-91-11 09:55:41* Test Item Value Reference Range Interpretation Comme nts Result (test code = 6463-4) No MRSA isolated [facility] ldxtmy5641-20-13 09:55:41* Test Item Value Reference Range Interpretation Comme nts Result (test code = 6463-4) No MRSA isolated [facility] acudqe1141-21-24 09:55:41* Test Item Value Reference Range Interpretation Comme nts Result (test code = 6463-4) No MRSA isolated [facility] pomnqs8014-54-82 09:55:41* Test Item Value Reference Range Interpretation Comme nts Result (test code = 6463-4) No MRSA isolated [facility] oemkko5474-12-73 09:55:41* Test Item Value Reference Range Interpretation Comme nts Result (test code = 6463-4) No MRSA isolated [facility] czjjwr6112-34-50 09:55:41* Test Item Value Reference Range Interpretation Comme nts Result (test code = 6463-4) No MRSA isolated [facility] uwulgu9512-05-90 09:55:41* Test Item Value Reference Range Interpretation Comme nts Result (test code = 6463-4) No MRSA isolated [facility] gtnvwt1014-64-33 09:55:41* Test Item Value Reference Range Interpretation Comme nts Result (test code = 6463-4) No MRSA isolated [facility] ilqukh7995-72-80 09:55:41* Test Item Value Reference Range Interpretation Comme nts Result (test code = 6463-4) No MRSA isolated [facility] rgdeqo8057-20-14 09:55:41* Test Item Value Reference Range Interpretation Comme nts Result (test code = 6463-4) No MRSA isolated [facility] vkahhu1145-94-90 09:55:41* Test Item Value Reference Range Interpretation Comme nts Result (test code = 6463-4) No MRSA isolated [facility] iijuyf0082-39-45 09:55:41* Test Item Value Reference Range Interpretation Comme nts Result (test code = 6463-4) No MRSA isolated [facility] vtfwok4716-09-10 09:55:41* Test Item Value Reference Range Interpretation Comme nts Result (test code = 6463-4) No MRSA isolated [facility] ndeqif2094-43-12 09:55:41* Test Item Value Reference Range Interpretation Comme nts Result (test code = 6463-4) No MRSA isolated [facility] rsklnk2755-60-84 09:55:41* Test Item Value Reference Range Interpretation Comme nts Result (test code = 6463-4) No MRSA isolated [facility] feghut2036-16-67 09:55:41* Test Item Value Reference Range Interpretation Comme nts Result (test code = 6463-4) No MRSA isolated [facility] cgebzj2674-71-07 09:55:41* Test Item Value Reference Range Interpretation Comme nts Result (test code = 6463-4) [facility] voevme7433-91-80 09:55:41* Test Item Value Reference Range Interpretation Comme nts Result (test code = 6463-4) No MRSA isolated [facility] MBDYPN4344-96-88 09:55:41* Test Item Value Reference Range Interpretation Comme nts CULTURE (BEAKER) (test code = 1095) No MRSA isolated CRYPTOCOCCAL [id number] 15:50:36* Test Item Value Reference Range Interpretation Comme nts CRYPTOCOCCAL ANTIGEN, SERUM (BEAKER) (test code = 1828) Negative Negative, Interference SPUTUM CULTURE + GRAM [id number] 10:30:11* Test Item Value Reference Range Interpretation [...] GRAM STAIN RESULT (BEAKER) (test code = 158897) 10-15 epithelial cells GRAM STAIN RESULT (BEAKER) (test code = 030057) 2+ gram positive cocci in chains and pairs GRAM STAIN RESULT (BEAKER) (test code = 162567) 1+ gram negative rods GRAM STAIN RESULT (BEAKER) (test code = 521109) 1+ yeast 2+ Normal respiratory rebel presentVANCOMYCIN LEVEL, [id number] 06:41:26* Test Item Value Reference Range Interpretation Comme nts VANCOMYCIN TROUGH (LATOYA) ( test code = 522) 17.0 ug/mL 10.0-20.0 Engineer System Administrator ID - ADMINECHO W CONTRAST & TKTVCTS4731-32-42 13:44:03Transthoracic Echocardiography Report (TTE) Demographics Patient Name YUE LAWS Date of Study 06/14/2023 ESTELLE Gender Female Visit Number [id number] Race Room Number 1055 Number Date of 1970 Referring Aydee Go MD Physician Age 53 year(s) Wage Conciliator James Albarran RDCS Interpreting Physician Brian MDProcedure [...] Vol. (Sngl Plane): 40.22 ml Right Ventricle RVDiast Dim.: 4 cm RVOT VTI: 12.16 cmAorta [...] Velocity: 0.85 m/s Peak Gradient: 2.89 mmHgCH[facility] - [facility]fieldHEMOGLOBIN A1C 2023-06-14 09:26:42* Test Item Value Reference [...] 5.7- 6.4% indicates increased risk for diabetes (prediabetes)."Engineer System Administrator ID - ADMOperator ID - ADMECG 12 [id number] 09:06:12Ventricular Rate 97 BPMAtrial Rate 97 BPMP-R Interval 146 msQRS Duration 96 msQ-T Interval 378 msQTC Calculation(Bazett) 480 msP Whitman 68 degreesR Whitman 107 degreesT Whitman 18 degrees Suspect arm leadreversal, interpretation assumes no reversalNormal sinus rhythmRightward axisNonspecific T wave abnormalityAbnormal ECGWhen compared with ECG of 30-MAR-2023 13:06,QRS axis Shifted rightConfirmed by Luis Lopez ([id number]) on 06/14/2023 9:06:07 [facility] gvmu0191-66-58 09:06:12Ventricular Rate 97 BPMAtrial Rate 97 BPMP-R Interval 146 msQRS Duration 96 msQ-T Interval 378 msQTC Calculation(Bazett) 480 msP Whitman 68 degreesR Whitman 107 degreesT Whitman 18 degrees Suspect arm leadreversal, interpretation assumes no reversalNormal sinus rhythmRightward axisNonspecific T wave abno rmalityAbnormal ECGWhen compared with ECG of 30-MAR-2023 13:06,QRS axis Shifted rightConfirmed by Luis Lopez ([id number]) on 06/14/2023 9:06:07 [facility] HospitalBASIC METABOLIC [id number] 04:48:18* Test Item Value Reference Range Interpretation [...] GFR is not applicable for dialysis patients Engineer System Administrator ID - ADMINCBC (HEMOGRAM ONLY)2023-06-14 04:22:50* Test [...] 413) 0 /100 WBC 0-0 Strep pneumoniae gdodnkx9493-05-16 23:34:41* Test Item Value Reference Range Interpretation Comme nts Strep pneumoniae Antigen (test code = 97968-3) Presumptive negative for pneumococcal pneumonia - see [...] the test. Lab Interpretation (test code = 25880-5) [facility] vzjfonj5563-66-86 23:34:41* Test Item Value Reference Range Interpretation Comme nts Strep pneumoniae Antigen (test code = 71900-3) Presumptive negative for pneumococcal pneumonia - see [...] the test. Lab Interpretation (test code = 77547-8) [facility] [id number] 23:34:41* Test Item Value Reference Range Interpretation Comme nts Strep pneumoniae Antigen (test code = 55972-0) Presumptive negative for pneumococcal pneumonia - see [...] the test. Lab Interpretation (test code = 93527-9) [facility] [id number] 23:34:41* Test Item Value Reference Range Interpretation Comme nts Strep pneumoniae Antigen (test code = 37733-5) Presumptive negative for pneumococcal pneumonia - see [...] the test. Lab Interpretation (test code = 43214-9) [facility] [id number] 23:34:41* Test Item Value Reference Range Interpretation Comme nts Strep pneumoniae Antigen (test code = 90216-1) Presumptive negative for pneumococcal pneumonia - see [...] the test. Lab Interpretation (test code = 43384-4) [facility] [id number] 23:34:41* Test Item Value Reference Range Interpretation Comme nts Strep pneumoniae Antigen (test code = 87678-9) Presumptive negative for pneumococcal pneumonia - see [...] the test. Lab Interpretation (test code = 47567-1) [facility] [id number] 23:34:41* Test Item Value Reference Range Interpretation Comme nts Strep pneumoniae Antigen (test code = 47354-8) Presumptive negative for pneumococcal pneumonia - see [...] the test. Lab Interpretation (test code = 54293-8) [facility] [id number] 23:34:41* Test Item Value Reference Range Interpretation Comme nts Strep pneumoniae Antigen (test code = 66305-1) Presumptive negative for pneumococcal pneumonia - see [...] the test. Lab Interpretation (test code = 64611-1) [facility] [id number] 23:34:41* Test Item Value Reference Range Interpretation Comme nts Strep pneumoniae Antigen (test code = 80357-0) Presumptive negative for pneumococcal pneumonia - see [...] the test. Lab Interpretation (test code = 50530-8) [facility] [id number] 23:34:41* Test Item Value Reference Range Interpretation Comme nts Strep pneumoniae Antigen (test code = 20762-3) Presumptive negative for pneumococcal pneumonia - see [...] the test. Lab Interpretation (test code = 38142-0) [facility] [id number] 23:34:41* Test Item Value Reference Range Interpretation Comme nts Strep pneumoniae Antigen (test code = 03615-0) Presumptive negative for pneumococcal pneumonia - see [...] the test. Lab Interpretation (test code = 87838-1) [facility] [id number] 23:34:41* Test Item Value Reference Range Interpretation Comme nts Strep pneumoniae Antigen (test code = 91217-3) Presumptive negative for pneumococcal pneumonia - see [...] the test. Lab Interpretation (test code = 57674-3) [facility] [id number] 23:34:41* Test Item Value Reference Range Interpretation Comme nts Strep pneumoniae Antigen (test code = 79616-4) Presumptive negative for pneumococcal pneumonia - see [...] the test. Lab Interpretation (test code = 06544-4) [facility] [id number] 23:34:41* Test Item Value Reference Range Interpretation Comme nts Strep pneumoniae Antigen (test code = 36748-6) Presumptive negative for pneumococcal pneumonia - see [...] the test. Lab Interpretation (test code = 33534-1) [facility] [id number] 23:34:41* Test Item Value Reference Range Interpretation Comme nts Strep pneumoniae Antigen (test code = 49422-5) Presumptive negative for pneumococcal pneumonia - see [...] the test. Lab Interpretation (test code = 58887-7) [facility] [id number] 23:34:41* Test Item Value Reference Range Interpretation Comme nts Strep pneumoniae Antigen (test code = 97790-5) Presumptive negative for pneumococcal pneumonia - see [...] the test. Lab Interpretation (test code = 41084-5) [facility] [id number] 23:34:41* Test Item Value Reference Range Interpretation Comme nts Strep pneumoniae Antigen (test code = 71810-3) Presumptive negative for pneumococcal pneumonia - see [...] the test. Lab Interpretation (test code = 68355-1) [facility] [id number] 23:34:41* Test Item Value Reference Range Interpretation Comme nts Strep pneumoniae Antigen (test code = 67878-5) Presumptive negative for pneumococcal pneumonia - see [...] the test. Lab Interpretation (test code = 19589-2) [facility] [id number] 23:34:41* Test Item Value Reference Range Interpretation Comme nts Strep pneumoniae Antigen (test code = 91501-4) Presumptive negative for pneumococcal pneumonia - see [...] the test. Lab Interpretation (test code = 90568-2) [facility] [id number] 23:34:41* Test Item Value Reference Range Interpretation Comme nts Strep pneumoniae Antigen (test code = 92812-4) Presumptive negative for pneumococcal pneumonia - see [...] the test. Lab Interpretation (test code = 94193-1) [facility] bcelsyt5848-76-03 23:34:41* Test Item Value Reference Range Interpretation Comme nts Strep pneumoniae Antigen (test code = 94629-1) Presumptive negative for pneumococcal pneumonia - see [...] the test. Lab Interpretation (test code = 20913-0) [facility] [id number] 23:34:41* Test Item Value Reference Range Interpretation Comme nts Strep pneumoniae Antigen (test code = 50129-7) Presumptive negative for pneumococcal pneumonia - see [...] the test. Lab Interpretation (test code = 07639-8) [facility] [id number] 23:34:41* Test Item Value Reference Range Interpretation Comme nts Strep pneumoniae Antigen (test code = 92737-4) Presumptive negative for pneumococcal pneumonia - see [...] the test. Lab Interpretation (test code = 13020-5) [facility] [id number] 23:34:41* Test Item Value Reference Range Interpretation Comme nts Strep pneumoniae Antigen (test code = 81431-6) Presumptive negative for pneumococcal pneumonia - see [...] the test. Lab Interpretation (test code = 91175-9) [facility] [id number] 23:34:41* Test Item Value Reference Range Interpretation Comme nts Strep pneumoniae Antigen (test code = 09203-2) Presumptive negative for pneumococcal pneumonia - see [...] the test. Lab Interpretation (test code = 78824-3) [facility] [id number] 23:34:41* Test Item Value Reference Range Interpretation Comme nts Strep pneumoniae Antigen (test code = 06359-9) Presumptive negative for pneumococcal pneumonia - see [...] the test. Lab Interpretation (test code = 86883-9) [facility] CenterTREP PNEUMONIAE [id number] 23:34:41* Test Item Value Reference Range Interpretation [...] detection limit of the test. Legionella antigen, [id number] 23:29:07* Test Item Value Reference Range Interpretation Comme nts Legionella Urine Antigen (test code = 72338-0) Negative - see comment Negative Negative for L. pneumophila serogroup 1 antigen, suggesting no recent or current infection with this serogroup. Legionellosis cannot be ruled out since other serogroups and species may cause disease. Lab Interpretation (test code = 26102-8) [facility] [id number] 23:29:07* Test Item Value Reference Range Interpretation Comme nts Legionella Urine Antigen (test code = 82236-3) Negative - see comment Negative Negative for L. pneumophila serogroup 1 antigen, suggesting no recent or current infection with this serogroup. Legionellosis cannot be ruled out since other serogroups and species may cause disease. Lab Interpretation (test code = 77455-4) [facility], [id number] 23:29:07* Test Item Value Reference Range Interpretation Comme nts Legionella Urine Antigen (test code = 81275-3) Negative - see comment Negative Negative for L. pneumophila serogroup 1 antigen, suggesting no recent or current infection with this serogroup. Legionellosis cannot be ruled out since other serogroups and species may cause disease. Lab Interpretation (test code = 09452-1) [facility], [id number] 23:29:07* Test Item Value Reference Range Interpretation Comme nts Legionella Urine Antigen (test code = 32434-9) Negative - see comment Negative Negative for L. pneumophila serogroup 1 antigen, suggesting no recent or current infection with this serogroup. Legionellosis cannot be ruled out since other serogroups and species may cause disease. Lab Interpretation (test code = 68691-7) [facility], [id number] 23:29:07* Test Item Value Reference Range Interpretation Comme nts Legionella Urine Antigen (test code = 75681-1) Negative - see comment Negative Negative for L. pneumophila serogroup 1 antigen, suggesting no recent or current infection with this serogroup. Legionellosis cannot be ruled out since other serogroups and species may cause disease. Lab Interpretation (test code = 36459-3) [facility], [id number] 23:29:07* Test Item Value Reference Range Interpretation Comme nts Legionella Urine Antigen (test code = 45429-1) Negative - see comment Negative Negative for L. pneumophila serogroup 1 antigen, suggesting no recent or current infection with this serogroup. Legionellosis cannot be ruled out since other serogroups and species may cause disease. Lab Interpretation (test code = 84049-9) [facility], [id number] 23:29:07* Test Item Value Reference Range Interpretation Comme nts Legionella Urine Antigen (test code = 68677-2) Negative - see comment Negative Negative for L. pneumophila serogroup 1 antigen, suggesting no recent or current infection with this serogroup. Legionellosis cannot be ruled out since other serogroups and species may cause disease. Lab Interpretation (test code = 58060-4) [facility], [id number] 23:29:07* Test Item Value Reference Range Interpretation Comme nts Legionella Urine Antigen (test code = 89000-1) Negative - see comment Negative Negative for L. pneumophila serogroup 1 antigen, suggesting no recent or current infection with this serogroup. Legionellosis cannot be ruled out since other serogroups and species may cause disease. Lab Interpretation (test code = 89870-3) [facility], [id number] 23:29:07* Test Item Value Reference Range Interpretation Comme nts Legionella Urine Antigen (test code = 53686-7) Negative - see comment Negative Negative for L. pneumophila serogroup 1 antigen, suggesting no recent or current infection with this serogroup. Legionellosis cannot be ruled out since other serogroups and species may cause disease. Lab Interpretation (test code = 28293-2) [facility], [id number] 23:29:07* Test Item Value Reference Range Interpretation Comme nts Legionella Urine Antigen (test code = 34465-2) Negative - see comment Negative Negative for L. pneumophila serogroup 1 antigen, suggesting no recent or current infection with this serogroup. Legionellosis cannot be ruled out since other serogroups and species may cause disease. Lab Interpretation (test code = 70738-2) [facility], [id number] 23:29:07* Test Item Value Reference Range Interpretation Comme nts Legionella Urine Antigen (test code = 33063-6) Negative - see comment Negative Negative for L. pneumophila serogroup 1 antigen, suggesting no recent or current infection with this serogroup. Legionellosis cannot be ruled out since other serogroups and species may cause disease. Lab Interpretation (test code = 36828-3) [facility], [id number] 23:29:07* Test Item Value Reference Range Interpretation Comme nts Legionella Urine Antigen (test code = 09083-6) Negative - see comment Negative Negative for L. pneumophila serogroup 1 antigen, suggesting no recent or current infection with this serogroup. Legionellosis cannot be ruled out since other serogroups and species may cause disease. Lab Interpretation (test code = 63392-1) [facility], [id number] 23:29:07* Test Item Value Reference Range Interpretation Comme nts Legionella Urine Antigen (test code = 85454-9) Negative - see comment Negative Negative for L. pneumophila serogroup 1 antigen, suggesting no recent or current infection with this serogroup. Legionellosis cannot be ruled out since other serogroups and species may cause disease. Lab Interpretation (test code = 00474-8) [facility], [id number] 23:29:07* Test Item Value Reference Range Interpretation Comme nts Legionella Urine Antigen (test code = 41170-5) Negative - see comment Negative Negative for L. pneumophila serogroup 1 antigen, suggesting no recent or current infection with this serogroup. Legionellosis cannot be ruled out since other serogroups and species may cause disease. Lab Interpretation (test code = 27471-9) [facility], [id number] 23:29:07* Test Item Value Reference Range Interpretation Comme nts Legionella Urine Antigen (test code = 68851-3) Negative - see comment Negative Negative for L. pneumophila serogroup 1 antigen, suggesting no recent or current infection with this serogroup. Legionellosis cannot be ruled out since other serogroups and species may cause disease. Lab Interpretation (test code = 52331-1) [facility], [id number] 23:29:07* Test Item Value Reference Range Interpretation Comme nts Legionella Urine Antigen (test code = 26136-5) Negative - see comment Negative Negative for L. pneumophila serogroup 1 antigen, suggesting no recent or current infection with this serogroup. Legionellosis cannot be ruled out since other serogroups and species may cause disease. Lab Interpretation (test code = 94807-6) [facility], [id number] 23:29:07* Test Item Value Reference Range Interpretation Comme nts Legionella Urine Antigen (test code = 82566-7) Negative - see comment Negative Negative for L. pneumophila serogroup 1 antigen, suggesting no recent or current infection with this serogroup. Legionellosis cannot be ruled out since other serogroups and species may cause disease. Lab Interpretation (test code = 17132-5) [facility], [id number] 23:29:07* Test Item Value Reference Range Interpretation Comme nts Legionella Urine Antigen (test code = 72211-0) Negative - see comment Negative Negative for L. pneumophila serogroup 1 antigen, suggesting no recent or current infection with this serogroup. Legionellosis cannot be ruled out since other serogroups and species may cause disease. Lab Interpretation (test code = 67461-7) [facility], [id number] 23:29:07* Test Item Value Reference Range Interpretation Comme nts Legionella Urine Antigen (test code = 05248-1) Negative - see comment Negative Negative for L. pneumophila serogroup 1 antigen, suggesting no recent or current infection with this serogroup. Legionellosis cannot be ruled out since other serogroups and species may cause disease. Lab Interpretation (test code = 77483-4) [facility], [id number] 23:29:07* Test Item Value Reference Range Interpretation Comme nts Legionella Urine Antigen (test code = 71255-9) Negative - see comment Negative Negative for L. pneumophila serogroup 1 antigen, suggesting no recent or current infection with this serogroup. Legionellosis cannot be ruled out since other serogroups and species may cause disease. Lab Interpretation (test code = 94320-3) [facility], [id number] 23:29:07* Test Item Value Reference Range Interpretation Comme nts Legionella Urine Antigen (test code = 37291-6) Negative - see comment Negative Negative for L. pneumophila serogroup 1 antigen, suggesting no recent or current infection with this serogroup. Legionellosis cannot be ruled out since other serogroups and species may cause disease. Lab Interpretation (test code = 47234-0) [facility], [id number] 23:29:07* Test Item Value Reference Range Interpretation Comme nts Legionella Urine Antigen (test code = 60342-0) Negative - see comment Negative Negative for L. pneumophila serogroup 1 antigen, suggesting no recent or current infection with this serogroup. Legionellosis cannot be ruled out since other serogroups and species may cause disease. Lab Interpretation (test code = 40474-4) [facility], [id number] 23:29:07* Test Item Value Reference Range Interpretation Comme nts Legionella Urine Antigen (test code = 74506-7) Negative - see comment Negative Negative for L. pneumophila serogroup 1 antigen, suggesting no recent or current infection with this serogroup. Legionellosis cannot be ruled out since other serogroups and species may cause disease. Lab Interpretation (test code = 52443-5) [facility], [id number] 23:29:07* Test Item Value Reference Range Interpretation Comme nts Legionella Urine Antigen (test code = 04748-7) Negative - see comment Negative Negative for L. pneumophila serogroup 1 antigen, suggesting no recent or current infection with this serogroup. Legionellosis cannot be ruled out since other serogroups and species may cause disease. Lab Interpretation (test code = 58415-6) [facility], [id number] 23:29:07* Test Item Value Reference Range Interpretation Comme nts Legionella Urine Antigen (test code = 14667-7) Negative - see comment Negative Negative for L. pneumophila serogroup 1 antigen, suggesting no recent or current infection with this serogroup. Legionellosis cannot be ruled out since other serogroups and species may cause disease. Lab Interpretation (test code = 49557-0) [facility], [id number] 23:29:07* Test Item Value Reference Range Interpretation Comme nts Legionella Urine Antigen (test code = 47300-2) Negative - see comment Negative Negative for L. pneumophila serogroup 1 antigen, suggesting no recent or current infection with this serogroup. Legionellosis cannot be ruled out since other serogroups and species may cause disease. Lab Interpretation (test code = 38053-5) [facility] [place] [id number] 23:29:07* Test Item Value Reference Range Interpretation Comme nts L. PNEUMOPHILA SEROGP 1 UR AG (BEAKER) (test code = 1156) Negative - see comment Negative Negative for L. pneumophila serogroup 1 antigen, suggesting no recent or current infection with this serogroup. Legionellosis cannot be ruled out since other serogroups and species may cause disease. Venous doppler arm, [id number] 20:05:32[facility] - Upper Extremities Veins Demographics Patient Name YUE LAWS Date of Study 06/13/2023 ESTELLE Age 53 Visit Number [id number] Gender Female Accession Number [id number] Date ofBirth 1970 Referring Cara Burgess Room Number 1055 Physician Wage Conciliator Lisa Ruiz Interpreting John Solorio, Physician MD FellowProcedureType of Study: Veins: Upper ExtremitiesVeins, VENOUS [...] in cm/s ; [facility] WITH HIV-1/2 [id number] 18:36:40* Test Item Value Reference Range Interpretation Comme nts HIV-1 ANTIGEN WITH HIV 1\\T\\2 ANTIBODY (2) (LATOYA) (test code = 2586) Nonreactive Nonreactive MR lumbar spine without & with IV [id number] 14:53:29MR LUMBAR SPINE WITH & WITHOUT IV [...] x 1.7x 1.7 cm. Dorsal paraspinal musculature F2zzmtqewjkkbvvl. Postcontrast imaging demonstrates mild peripheralenhancement of the dorsal paraspinal fluid collection. Left adrenalgland 2.9 cm nodule.[facility] WITHOUT IV [id number] 14:53:29[facility] 1970 Sex: FMR [...] 1.7 x 1.7 cm. Dorsal paraspinal musculature I7ysrkuglfkhvoaw. Postcontrast imaging demonstrates mild peripheralenhancement of the [...] Signed By: Ryan Buckley06/13/2023 14:55 CDTWorkstation Name: [id number] KINASE (CK)2023-06-13 11:54:02* Test Item Value Reference Range Interpretation Comme nts CREATINE KINASE TOTAL (BEAKE R) (test code = 380) 43 U/L 29-200 Engineer System Administrator ID - ADMINCOMPREHENSIVE METABOLIC [id number] 06:48:22* Test Item Value Reference Range Interpretation [...] GFR is not applicable for dialysis patients Engineer System Administrator ID - ADMINPROTHROMBIN TIME/PZQ4849-44-03 06:40:01* Test Item Value Reference Range Interpretation [...] code = 2801) 1.70 % 0.00-1.00 H [id number] 05:26:09* Test Item Value Reference Range Interpretation Comme nts MAGNESIUM (BEAKER) (test cod e = 627) 2.0 mg/dL 1.6-2.6 Engineer System Administrator ID - [id number] 05:26:09* Test Item Value Reference Range Interpretation Comme nts PHOSPHORUS (BEAKER) (test co de = 604) 3.5 mg/dL 2.3-4.7 Engineer System Administrator ID - ADMINBASIC METABOLIC [id number] 05:26:08* Test Item Value Reference Range Interpretation [...] GFR is not applicable for dialysis patients Engineer System Administrator ID - ADMINCBC W/PLT COUNT & AUTO [id number] 05:11:15* Test Item Value Reference Range Interpretation [...] 0.70 % 0.00-1.00 XR spine lumbar 1 [id number] 10:32:20XR SPINE LUMBAR 1 VIEW CLINICAL INDICATION: L3-4 LAMINECTOMY COMPARISON: [facility] [place] [facility] [place] 1 [id number] 10:32:20 [facility] ESTELLE : 1970 Sex: FXR SPINE LUMBAR 1 VIEWCLINICAL INDICATION: L3-4 LAMINECTOMYCOMPARISON: NoneIMPRESSION:A single lateral view of the lumbar spine is obtained intraoperatively.The posterior approach surgical instrument is seen at the L3-L4 level,inferior to the L3 spinous process. Results were communicated to , who concurred with the above findings. Electronically Signed By: Maxim Ramos08/01/2022 10:34 CDTWo rkstation Name: [id number] SPINE LUMBAR 1 [id number] 10:29:18 [facility] : 1970 Sex: FCLINICAL [...] Signed By: Maxim Ramos08/01/2022 10:31 CDTWorkstation Name: [id number] Screen, [id number] 05:32:52* Test Item Value Reference Range Interpretation Comme nts Preg Test, Ur (test code = 2111-07) Negative Negative Lab Interpretation (test cod e = 26890-3) [facility], [id number] 05:32:52* Test Item Value Reference Range Interpretation Comme nts Preg Test, Ur (test code = 2111-07) Negative Negative Lab Interpretation (test cod e = 46174-5) [facility], [id number] 05:32:52* Test Item Value Reference Range Interpretation Comme nts Preg Test, Ur (test code = 2111-07) Negative Negative Lab Interpretation (test cod e = 63889-6) [facility], [id number] 05:32:52* Test Item Value Reference Range Interpretation Comme nts Preg Test, Ur (test code = 2-1) Negative Negative Lab Interpretation (test cod e = 34289-4) [facility], [id number] 05:32:52* Test Item Value Reference Range Interpretation Comme nts Preg Test, Ur (test code = 2-1) Negative Negative Lab Interpretation (test cod e = 13308-6) [facility], [id number] 05:32:52* Test Item Value Reference Range Interpretation Comme nts Preg Test, Ur (test code = 2111-1) Negative Negative Lab Interpretation (test cod e = 11172-9) [facility], [id number] 05:32:52* Test Item Value Reference Range Interpretation Comme nts Preg Test, Ur (test code = 2111-1) Negative Negative Lab Interpretation (test cod e = 12019-3) [facility], [id number] 05:32:52* Test Item Value Reference Range Interpretation Comme nts Preg Test, Ur (test code = 2111-1) Negative Negative Lab Interpretation (test cod e = 04786-1) [facility], [id number] 05:32:52* Test Item Value Reference Range Interpretation Comme nts Preg Test, Ur (test code = 2111-1) Negative Negative Lab Interpretation (test cod e = 77230-3) [facility], [id number] 05:32:52* Test Item Value Reference Range Interpretation Comme nts Preg Test, Ur (test code = 2111-1) Negative Negative Lab Interpretation (test cod e = 31253-7) [facility], [id number] 05:32:52* Test Item Value Reference Range Interpretation Comme nts Preg Test, Ur (test code = 2-1) Negative Negative Lab Interpretation (test cod e = 10911-0) [facility] [place] uskqt7965-97-16 05:32:52* Test Item Value Reference Range Interpretation Comme nts Preg Test, Ur (test code = 2111-1) Negative Negative Lab Interpretation (test cod e = 13154-1) [facility], [id number] 05:32:52* Test Item Value Reference Range Interpretation Comme nts Preg Test, Ur (test code = 2111-1) Negative Negative Lab Interpretation (test cod e = 67302-1) [facility], [id number] 05:32:52* Test Item Value Reference Range Interpretation Comme nts Preg Test, Ur (test code = 2111-1) Negative Negative Lab Interpretation (test cod e = 53323-8) [facility], [id number] 05:32:52* Test Item Value Reference Range Interpretation Comme nts Preg Test, Ur (test code = 2111-) Negative Negative Lab Interpretation (test cod e = 93615-9) [facility], [id number] 05:32:52* Test Item Value Reference Range Interpretation Comme nts Preg Test, Ur (test code = 2111-) Negative Negative Lab Interpretation (test cod e = 12925-9) [facility], [id number] 05:32:52* Test Item Value Reference Range Interpretation Comme nts Preg Test, Ur (test code = 2111-) Negative Negative Lab Interpretation (test cod e = 68284-6) [facility], [id number] 05:32:52* Test Item Value Reference Range Interpretation Comme nts Preg Test, Ur (test code = 2111-1) Negative Negative Lab Interpretation (test cod e = 55598-5) [facility], [id number] 05:32:52* Test Item Value Reference Range Interpretation Comme nts Preg Test, Ur (test code = 2111-1) Negative Negative Lab Interpretation (test cod e = 33394-9) Normal [facility], [id number] 05:32:52* Test Item Value Reference Range Interpretation Comme nts Preg Test, Ur (test code = 2-1) Negative Negative Lab Interpretation (test cod e = 36285-8) [facility], [id number] 05:32:52* Test Item Value Reference Range Interpretation Comme nts Preg Test, Ur (test code = 2-1) Negative Negative Lab Interpretation (test cod e = 75586-8) [facility], [id number] 05:32:52* Test Item Value Reference Range Interpretation Comme nts Preg Test, Ur (test code = 2-1) Negative Negative Lab Interpretation (test cod e = 03161-2) [facility], zoorj7594-98-42 05:32:52* Test Item Value Reference Range Interpretation Comme nts Preg Test, Ur (test code = 2111-) Negative Negative Lab Interpretation (test cod e = 87225-4) Normal [facility], rwkla5235-92-03 05:32:52* Test Item Value Reference Range Interpretation Comme nts Preg Test, Ur (test code = 2111-) Negative Negative Lab Interpretation (test cod e = 82109-3) Normal [facility], rzdmk9934-55-54 05:32:52* Test Item Value Reference Range Interpretation Comme nts Preg Test, Ur (test code = 2111-1) Negative Negative Lab Interpretation (test cod e = 70385-5) [facility], rglmz7465-29-44 05:32:52* Test Item Value Reference Range Interpretation Comme nts Preg Test, Ur (test code = 2111-1) Negative Negative Lab Interpretation (test cod e = 62035-5) Normal [facility], tygnj7417-83-95 05:32:52* Test Item Value Reference Range Interpretation Comme nts Preg Test, Ur (test code = 2111-1) Negative Negative Lab Interpretation (test cod e = 61949-2) Normal [facility], [id number] 05:32:52* Test Item Value Reference Range Interpretation Comme nts Preg Test, Ur (test code = 2-1) Negative Negative Lab Interpretation (test cod e = 46721-6) Normal [facility], [id number] 05:32:52* Test Item Value Reference Range Interpretation Comme nts Preg Test, Ur (test code = 2-1) Negative Negative Lab Interpretation (test cod e = 79354-2) Normal [facility] SCREEN, [id number] 05:32:52* Test Item Value Reference Range Interpretation Comme nts TEST URINE (BEAKER ) (test code = 583) Negative Negative BASIC METABOLIC [id number] 23:30:54* Test Item Value Reference Range Interpretation [...] GFR is not applicable for dialysis patients Engineer System Administrator ID - ADMINPT/[id number] 23:15:33* Test Item Value Reference Range Interpretation [...] H CT neck soft tissue without IV xwyaydge8682-60-15 13:45:22EXAM: CT NECK SOFT TISSUE WITHOUT IV [...] Postoperative changes from anterior cervical discectomy fusionat C3-L0Zezijqay Lung Apices: NormalCH[facility] - [facility] NECK SOFT TISSUE WITHOUT IV [id number] 13:45:22 [facility] 1970 Sex: FEXAM: CT [...] Postoperative changes from anterior cervical discectomy fusionat C3-Z4Tvozhfpl Lung Apices: NormalIMPRESSION:Exam limited by lack of intravenous contrast.1. 1.8 x 2.9 x 1.3 cm ill-defined fluid collection in the leftanterolateral neck soft tissues, suggesting evolving postoperativehemorrhage. Superimposed infection is not ex cluded.2. Retropharyngeal fluid and air measuring up to 0.8 cm in thickness,favored to be present postoperative right frontal edema. Superimposedinfection is not excluded.3. Postoperative changes from ACDF at C3- V4Vcyviotbpgcrti Signed By: Maxim Ramos07/31/2022 13:47 CDTWorkstation Name: [id number] METABOLIC [id number] 08:13:13* Test Item Value Reference Range Interpretation [...] GFR is not applicable for dialysis patients Engineer System Administrator ID - BVCBC W/PLT COUNT & AUTO NNMJMETBGDLG1552-40-05 07:46:31* Test Item Value Reference Range Interpretation [...] K/ L 0.01-0.08 IMMATURE GRANULOCYTES-RELATI VE PERCENT (BEBRIDGER) (test code = 2801) 0.60 % 0.00-1.00 XR spine cervical 2 or 3 [id number] 20:24:23TECHNIQUE: Frontal and lateral views of the cervical spine. INDICATION: Postop Standing Films. COMPARISON: None.[facility]XR [facility] CERVICAL 2 OR 3 [id number] 20:24:23[facility] 1970 Sex: FTECHNIQUE: [...] Signed By: Zachariah Garcia05/28/2023 20:26 CDTWorkstation Name: [id number] fluoro non-specific up to 1 hour 2023-05-28 11:45:16This is a non-reportable study with no Radiologist dictation. Please refer to your PACS to review images, or Doc Flowsheets for documentation on studies without images.[facility] HospitalFL FLUORO NON-SPECIFIC UP TO 1 [id number] 11:45:16 [facility] : 1970 Sex: FThis is a non- reportable study with no Radiologist dictation. Please refer to your PACS to reviewimages, or Doc Flowsheets for documentation on studies without images.FL FLUORO NON-SPECIFIC UP TO 1 [id number] 10:13:02 [facility] : 1970 Sex: FTECHNIQUE: 1 lateral fluoroscopic image of the cervical spine forlocalization.Fluoroscopic time: 3second(s).FINDINGS:The surgical pointer is at C3-C4.The findings were discussed with Dr. Garcia in theOR who concurred withthe findings.IMPRESSION:Intraoperative localization plain film as described abo ve.Electronically Signed By: Derik Reyez05/28/2023 10:15 CDTWorkstation Name: [id number], QUANTITATIVE, [id number] 08:21:03* Test Item Value Reference Range Interpretation Comme nts GONADOTROPIN, CHORIONIC (HCG ) QUANT (LINNEAAKER) (test code = 649) < mIU/mL 0-10 Non- Females: <10 mIU/mL Females: Gestation Age Reference Range(mIU/mL) 0.2-1 Week 5-50 1-2 Weeks 50-500 2-3 Weeks 100-5,000 3-4 Weeks 500-10,000 4-5 Weeks 1,000-50,000 5-6 Weeks 10,000-100,000 6-8 Weeks 15,000- 200,000 2-3 Months 10,000-100,000 Engineer System Administrator ID - ADMINCULTCOCO NASHAMYMS3399-13-53 09:28:30SPECIMEN NUMBER: [id number] CULTURE, URINE SPECIMEN NUMBER: [id number] SPECIMEN COMMENT: URINE SOURCE: URINE REPORT STATUS: FINAL FINAL REPORT: 05/15/2023 >100,000 CFU/ML UROGENITAL REBEL PRESENT NOCOMMON PATHOGENS UNLESS OTHERWISE INDICATED, ALL TESTING PERFORMED AT [facility] [address] [place] [address] STEREOPTICIAN: David DUMONTIA NUMBER [id number] [facility] [place]. [id number], [id number] 12:02:50SPECIMEN NUMBER: [id number] CULTURE, URINE SPECIMEN NUMBER: [id number] SOURCE: URINE REPORT STATUS: FINAL FINAL REPORT: 05/13/2023 NO SPECIMEN RECEIVED FOR TESTING. CHARGES DELETED.BASIC METABOLIC [id number] 04:48:43* Test Item Value Reference Range Interpretation Comme nts GLUCOSE (test code = 2217) 117 MG/DL 70-99 H BUN (test code = 2208) 20 MG/DL 6-20 CREATININE (test code = 2214) 0.83 MG/DL 0.60-1.30 eGFR (2020 CKD-EPI) (test co de = 52352) 85 ML/MIN/1.73 >60 SODIUM (test code = [...] 12.7 SECONDS 12.5-14.7 INR (test code = 34287) 0.9 SEE BELOW CURRENT RECOMMENDATIONS ARE FOR AN INR OF 2.0-3.0 FOR ALL PATIENTS ON VITAMIN K ANTAGONISTS, EXCEPT THOSE WITH PROSTHETIC HEART VALVES, FOR WHOM INR OF 2.5-3.5 IS RECOMMENDED. UNLESS OTHERWISE INDICATED, ALL TESTING PERFORMED AT [facility] [address] [place] [id number] STEREOPTICIAN: JANNY STEINER M.D. [place] NUMBER [id number] [facility] [place]. [id number] CBC W/AUTO DIFF WITH [id number] 01:54:17* Test Item Value Reference Range Interpretation [...] H ABS NUCLEATED RBCS (test code = 86858) 0.00 K/UL 0.00-0.11 ECG 12 [id number] 14:02:48Ventricular Rate 102 BPMAtrial Rate 102 BPMP-R Interval 146 msQRS Duration 90 msQ-T Interval 372 msQTC Calculation(Bazett) 484 msP Whitman 11 degreesR Whitman -53 degreesT Whitman 29 degrees Sinus tachycardiaPossible Left atrial enlargementLeft axis deviationPoor R wave progression Cannot rule out Anterior infarct , age undetermined vs lead misplacementNonspecific T wave abnormalityProlonged QTAbnormal ECGNo previous ECGs availableConfirmed by David GARCIA BASANT ([id number]) on 04/06/2023 2:02:46 [facility] & [id number] 13:11:39Transthoracic Echocardiography Report (TTE) Demographics Patient Name YUE LAWS Date of Study 03/31/2023 ESTELLE Gender Female Visit Number [id number] Race Room Number 2227 Number Date of 1970 Referring Physician Mariah Aldridge MD Age 53 year(s) Wage Conciliator Wilmer Francois Crime Victim Specialist Josefina Corbett, [facility] Interpreting Physician Melody MDProcedure Type of [...] Velocity: 0.74 m/s Peak Gradient: 2.22 mmHgCHI [facility] - BakersfieldXR chest 1 view portable / [id number] 15:39:07TECHNIQUE: Frontal view of the chest. INDICATION: CHf. COMPARISON: None. FINDINGS: LINES/TUBES: None. HEART AND MEDIASTINUM: Cardiomediastinal contour is within normallimits. LUNGS: The lungs are well inflated and clear. No consolidation orpulmonary edema. PLEURA: No pneumothorax. No significant pleural effusion. SOFT TISSUES AND BONES: Cervical spinal fixation hardware is noted.[facility]XR CHEST 1 VIEW PORTABLE / [id number] 15:39:07 [facility] : 1970 Sex: FTECHNIQUE: Frontal view of the chest.INDICATION: CHf.COMPARISON: None.FINDINGS:LINES/TUBES: None.HE ART AND MEDIASTINUM: Cardiomediastinal contour is within normallimits. LUNGS: The lungs are well inflated and clear. No consolidation orpulmonary edema.PLEURA: No pneumothorax. No significant pleuraleffusion.SOFT TISSUES AND BONES: Cervical spinal fixation hardware is noted.IMPRESSION:No acute card iopulmonary process.Electronically Signed By: Jose Carlos Lebron04/01/2023 15:41 CDTWorkstation Name: [id number] NATRIURETIC FACTOR (BNP)2023-04-01 14:15:07* Test Item Value Reference Range Interpretation Comme nts B-TYPE NATRIURETIC PEPTIDE ( BEAKER) (test code = 700) 192 pg/mL 0-100 H Engineer System Administrator ID - ADMINMR spine cervical without IV [id number] 11:30:35MRI cervical spine without contrast CLINICAL HISTORY: [...] and paraspinal soft tissues are within normal limits.[facility] HospitalMR CERVICAL SPINE WITHOUT IV [id number] 11:30:35 [facility] : 1970 Sex: FMRI [...] Signed By: Maxim Sultana03/31/2023 11:32 CDTWorkstation Name: [id number] METABOLIC [id number] 04:43:14* Test Item Value Reference Range Interpretation [...] GFR is not applicable for dialysis patients Engineer System Administrator GEOVANNA CORREA WC (HEMOGRAM ONLY)2023-03-31 04:20:07* Test [...] 0 /100 WBC 0-0 Arterial doppler legs oawnszsae9278-96-91 17:44:07PV LAB - Lower Extremity Arterial Duplex Demographics Patient Name YUE LAWS Date of Study ESTELLE Age 53 Visit Number [id number] Gender Female Accession Number [id number] Date of 1970 Referring Mariah Aldridge, Room Number 2227 Physician Wage Conciliator Yovana Akins Interpreting John Solorio, Physician FellowProcedureType [...] !EDV !Waveform ! !PSV !EDV !Waveform ! +--------- + + + + + + + + + !Mid Common Fem oral ! !153 ! !Triphasic ! !153 ! [...] ! !Triphasic ! !144 ! !Triphasic ! +------- + + + + + + + + + !Dist SFA ! ! 106 ! !Triphasic ! !82.1 ! !Triphasic ! + + + + + + + + + + !Prox Popliteal ! !85 ! !Triphasic ! !80.9 ! !Triphasic ! +----- + + + + + + + + + !Dist Popliteal ! !69.5 ! !Triphasic ! !70.4 ! !Triphasic ! + + + + + + + + + + !Prox MAINTENANCE SUPERINTENDENT ! !32 ! !Biphasic ! !60.9 ! !Triphasic ! +--- + + + + + + + + + !Mid MAINTENANCE SUPERINTENDENT! !25.9 ! !Biphasic ! !59.7 ! !Triphasic ! + + + + + + + + + + !Dist MAINTENANCE SUPERINTENDENT ! !33.2 ! !Biphasic ! !37.4 ! !Biphasic ! +------- + + + + + + + + + !Prox KENDRA ! ! 56.2 ! !Biphasic ! !60.5 ! !Triphasic ! + + + + + + + + + + !Mid KENDRA ! !36.7 ! !Biphasic ! !47.9 ! !Biphasic ! + + + + + + + + + + !Dist KENDRA ! !37.4! !Biphasic ! !58.1 ! !Biphasic ! + [...] ! !Biphasic ! !23.6 ! !Biphasic ! +---- + + + + + + + + +[facility]field[facility]I's Only(Ankle/Brachial Index)2023-03-30 17:13:47PV LAB - Lower Extremity Arterial Procedure Demographics Patient Name YUE LAWS Date of Study 03/30/2023 ESTELLE Age 53 Visit Number [id number] Gender Female Accession Number [id number] Date of 1970 Referring Mariah Peteneena, Room Number 2227 Physician Wage Conciliator Yovana Akins Interpreting John Solorio, Physician FellowProcedureType [...] in cm/s ; Diameters are measured in [facility] thoracic spine without IV otgruwej5506-88-87 12:50:50MR THORACIC SPINE WITHOUT IV CONTRAST INDICATION: [...] and further reported on MRI lumbar spine. [facility]MR TH[facility]ACIC SPINE WITHOUT IV [id number] 12:50:50[facility] : 1970 Sex: FMR [...] abnormality. T10-11 moderate right neural foraminal stenosis kvoT66-22 moderate bilateral foraminal stenosis due to facet [...] Signed By: Ryan Buckley03/30/2023 12:52 CDTWorkstation Name: [id number] spine lumbar without IV wfpbthgm0883-71-18 12:33:57MR LUMBAR SPINE WITHOUT IV CONTRAST INDICATION: Unlisted Reason for ExamConcern for cord compression COMPARISON: None TECHNIQUE: Multiplanar, multisequence MR images of the lumbar spinewithout contrast. FINDINGS: For the purposes of this dictation, the 5 lowermost zpokqn-nnjldgpduhprc-ulle vertebral bodies are labeled L1-L5.Alignment of the [...] with mild to moderatebilateral neural foraminal stenosisCHI [facility] Health [facility] - BakersfieldMR LUMBAR SPINE WITHOUT IV [id number] 12:33:57 [facility] : 1970 Sex: FMR LUMBAR SPINE WITHOUT IV CONTRASTINDICATION: Unlisted Reason for ExamConcern for cord compressionCOMPARISON: NoneTECHNIQUE: Multiplanar, multisequence MR images of the lumbar spinewithout contrast. FINDINGS: For the purposes of this dictation, the 5 lowermost ozygpk-dmlqldegxewfq-acrp vertebral bodies are labeled L1- L5.Alignment of the lumbar spine is within normal limits. Vertebral body height is maintained. Bone marrow edema is seen at the inferior L3 and superior L4 vertebralbodies and bilateral L4 pedicles, favored to be degenerative in nature.Suggestion of a synovial cyst at the zuiixH16-Z33 level (series 301image eight).No spinal cord signal [...] flavum buckling versus synovial cyst at the xrdseI21-V95 level (series 301image eight). MRI thoracic spine can beconsidered for further evaluation.7. Mild clumping of the cauda equina nerve roots, which is nonspecificbut may represent arachnoiditis. Postcontrast imaging can be consideredfor further evaluation.Electronically Signed By: Maxim Sultana03/30/2023 12:36 CDTWorkstation Name: [id number] 11:45:01* Test Item Value Reference Range Interpretation Comme nts HEMOGLOBIN A1C ELECTROPHORESIS (LINNEAAKER) (test code = 3811) 5.7 % See_Comment [...] 5.7- 6.4% indicates increased risk for diabetes (prediabetes)."Engineer System Administrator ID - ADMEEG AWAKE AND WCCAZN4545-97-59 09:57:53Steph Martinez MD 03/30/2023 9:[address] Type: Inpatient, outpatient, EMUDATE(s) OF EE03/30/23DATE OF REPORT: 03/30/23MRN: [id number] of : 1970EE-1454Start time: 08:36Stop time: :23ICD-10: R56.9 CPT Code: 51197 (awake and asleep)HISTORY: 53 y/o female with [...] EEG recordings. Steph Elias MD, MPHNeurophysiology/Epilepsy AttendingCHI [facility] [place] EEG AWAKE AND [id number] 09:57:53Steph Martinez MD 03/30/2023 9:59 AMELECTROENCEPHALOGRAM FOR [facility] EEG Type: Inpatient, outpatient, EMUDATE(s) OF EE03/30/23DATE OF REPORT: 03/30/23MRN: [id number] of : 1970EE-1454Start time: 08:36Stop time: 09:23ICD-10: R56.9 CPT Code: 14650 (awake and asleep)HISTORY: 53 y/o female with [...] EEG recordings. Steph Elias MD, MPHNeurophysiology/Epilepsy AttendingCH[facility] [place] [facility] AWAKE AND [id number] 09:57:53Steph Martinez MD 03/30/2023 9:59 AMELECTROENCEPHALOGRAM FOR [facility] EEG Type: Inpatient, outpatient, EMUDATE(s) OF EE03/30/23DATE OF REPORT: 03/30/23MRN: [id number] of : 1970EE-1454Start time: 08:36Stop time: 09:23ICD-10: R56.9 CPT Code: 55860 (awake and asleep)HISTORY: 53 y/o female with [...] additional EEG recordings. Steph Elias MD, MPHNeurophysiology/Epilepsy AttendingSouthern [facility] Hospital VALPROIC ACID LEVEL, [id number] 09:42:31* Test Item Value Reference Range Interpretation Comme nts VALPROIC ACID TOTAL (BEAKER) (test code = 924) 76 ug/mL 50-100 Therapeutic range for some clinical conditions may be >100 ug/mLUrinalysis w/Microscopic + Reflex to Rgxnaye1912-27-91 08:43:51* Test Item Value Reference Range Interpretation Comme nts Color, UA (test code = 5778-6) Yellow Clarity, UA (test code = 5767-9) Clear Specific [place]man, UA (test code = 5811-5) 1.033 1.001-1.035 pH, UA (test code = 5803-2) 6.0 5.0-8.0 Protein, UA (test code = 75780-9) 30 mg/dL Negative A Glucose, UA (test code = 365) Negative Negative Ketones, UA (test code = 2514-8) Negative Negative Bilirubin, UA (test code = 64835-1) Negative Negative Blood, UA (test code = 01507-9) Small Negative A Nitrite, UA (test code = 5802-4) Negative Negative Leukocytes, UA (test code = 5799-2) Negative Negative Urobilinogen, UA (test code = 76310-4) 0.2 0.2-1.0 RBC, UA (test code = 37073-3) 51 See_Comment [Automated message] The system which [...] Occasional Squam Epithel, UA (test code = 40130-2) See_Comment [Automated message] The system which generated this result transmitted reference range: /HPF. The reference range was not used to interpret this result as normal/abnormal. Specimen Source (test code = 2795) LYNDSAY (test code = LYNDSAY) Engineer System Administrator ID - [auto]Engineer System Administrator ID - tech Lab Interpretation (test code = 33353-8) Abnormal [facility] BakersfieldUrinalysis w/Microscopic + Reflex to Culture 2023-03-30 08:43:51* Test Item Value Reference Range Interpretation Comme nts Color, UA (test code = 5778-6) Yellow Clarity, UA (test code = 5767-9) Clear Specific [place], UA (test code = 5811-5) 1.033 1.001-1.035 pH, UA (test code = 5803-2) 6.0 5.0-8.0 Protein, UA (test code = 36848-6) 30 mg/dL Negative A Glucose, UA (test code = 365) Negative Negative Ketones, UA (test code = 2514-8) Negative Negative Bilirubin, UA (test code = 38507-1) Negative Negative Blood, UA (test code = 99766-5) Small Negative A Nitrite, UA (test code = 5802-4) Negative Negative Leukocytes, UA (test code = 5799-2) Negative Negative Urobilinogen, UA (test code = 02741-7) 0.2 0.2-1.0 RBC, UA (test code = 80528-4) 51 See_Comment [Automated message] The system which [...] Occasional Squam Epithel, UA (test code = 34665-5) See_Comment [Automated message] The system which generated this result transmitted reference range: /HPF. The reference range was not used to interpret this result as normal/abnormal. Specimen Source (test code = 2795) LYNDSAY (test code = LYNDSAY) Engineer System Administrator ID - [auto]Engineer System Administrator ID - tech Lab Interpretation (test code = 70894-2) Abnormal [facility]fieldUrinalysis w/Microscopic + Reflex to Culture 2023-03-30 08:43:51* Test Item Value Reference Range Interpretation Comme nts Color, UA (test code = 5778-6) Yellow Clarity, UA (test code = 5767-9) Clear Specific [place], UA (test code = 5811-5) 1.033 1.001-1.035 pH, UA (test code = 5803-2) 6.0 5.0-8.0 Protein, UA (test code = 77711-2) 30 mg/dL Negative A Glucose, UA (test code = 365) Negative Negative Ketones, UA (test code = 2514-8) Negative Negative Bilirubin, UA (test code = 35402-1) Negative Negative Blood, UA (test code = 89989-0) Small Negative A Nitrite, UA (test code = 5802-4) Negative Negative Leukocytes, UA (test code = 5799-2) Negative Negative Urobilinogen, UA (test code = 08989-6) 0.2 0.2-1.0 RBC, UA (test code = 17927-7) 51 See_Comment [Automated message] The system which [...] Occasional Squam Epithel, UA (test code = 78450-4) See_Comment [Automated message] The system which generated this result transmitted reference range: /HPF. The reference range was not used to interpret this result as normal/abnormal. Specimen Source (test code = 2795) LYNDSAY (test code = LYNDSAY) Engineer System Administrator ID - [auto]Engineer System Administrator ID - tech Lab Interpretation (test code = 39996-4) Abnormal [facility]fieldUrinalysis w/Microscopic + Reflex to Culture 2023-03-30 08:43:51* Test Item Value Reference Range Interpretation Comme nts Color, UA (test code = 5778-6) Yellow Clarity, UA (test code = 5767-9) Clear Specific [place], UA (test code = 5811-5) 1.033 1.001-1.035 pH, UA (test code = 5803-2) 6.0 5.0-8.0 Protein, UA (test code = 03607-8) 30 mg/dL Negative A Glucose, UA (test code = 365) Negative Negative Ketones, UA (test code = 2514-8) Negative Negative Bilirubin, UA (test code = 55766-0) Negative Negative Blood, UA (test code = 39416-0) Small Negative A Nitrite, UA (test code = 5802-4) Negative Negative Leukocytes, UA (test code = 5799-2) Negative Negative Urobilinogen, UA (test code = 40567-2) 0.2 0.2-1.0 RBC, UA (test code = 64560-2) 51 See_Comment [Automated message] The system which [...] Occasional Squam Epithel, UA (test code = 54733-5) See_Comment [Automated message] The system which generated this result transmitted reference range: /HPF. The reference range was not used to interpret this result as normal/abnormal. Specimen Source (test code = 2795) LYNDSAY (test code = LYNDSAY) Engineer System Administrator ID - [auto]Engineer System Administrator ID - tech Lab Interpretation (test code = 30947-5) [facility]:43:51* Test Item Value Reference Range Interpretation Comme nts Color, UA (test code = 5778-6) Yellow Clarity, UA (test code = 5767-9) Clear Specific [place], UA (test code = 5811-5) 1.033 1.001-1.035 pH, UA (test code = 5803-2) 6.0 5.0-8.0 Protein, UA (test code = 68519-8) 30 mg/dL Negative A Glucose, UA (test code = 365) Negative Negative Ketones, UA (test code = 2514-8) Negative Negative Bilirubin, UA (test code = 42453-7) Negative Negative Blood, UA (test code = 28311-8) Small Negative A Nitrite, UA (test code = 5802-4) Negative Negative Leukocytes, UA (test code = 5799-2) Negative Negative Urobilinogen, UA (test code = 47434-2) 0.2 0.2-1.0 RBC, UA (test code = 22612-4) 51 See_Comment [Automated message] The system which [...] Occasional Squam Epithel, UA (test code = 40021-4) See_Comment [Automated message] The system which generated this result transmitted reference range: /HPF. The reference range was not used to interpret this result as normal/abnormal. Specimen Source (test code = 2795) LYNDSAY (test code = LYNDSAY) Engineer System Administrator ID - [auto]Engineer System Administrator ID - tech Lab Interpretation (test code = 27564-2) [facility]-30 08:43:51* Test Item Value Reference Range Interpretation Comme nts Color, UA (test code = 5778-6) Yellow Clarity, UA (test code = 5767-9) Clear Specific [place], UA (test code = 5811-5) 1.033 1.001-1.035 pH, UA (test code = 5803-2) 6.0 5.0-8.0 Protein, UA (test code = 94044-8) 30 mg/dL Negative A Glucose, UA (test code = 365) Negative Negative Ketones, UA (test code = 2514-8) Negative Negative Bilirubin, UA (test code = 78573-3) Negative Negative Blood, UA (test code = 95911-4) Small Negative A Nitrite, UA (test code = 5802-4) Negative Negative Leukocytes, UA (test code = 5799-2) Negative Negative Urobilinogen, UA (test code = 48880-2) 0.2 0.2-1.0 RBC, UA (test code = 19442-6) 51 See_Comment [Automated message] The system which [...] Occasional Squam Epithel, UA (test code = 04834-1) See_Comment [Automated message] The system which generated this result transmitted reference range: /HPF. The reference range was not used to interpret this result as normal/abnormal. Specimen Source (test code = 2795) LYNDSAY (test code = LYNDSAY) Engineer System Administrator ID - [auto]Engineer System Administrator ID - tech Lab Interpretation (test code = 80518-2) [facility] Ref[facility] Culture 2023-03-30 08:43:51* Test Item Value Reference Range Interpretation Comme nts Color, UA (test code = 5778-6) Yellow Clarity, UA (test code = 5767-9) Clear Specific [place], UA (test code = 5811-5) 1.033 1.001-1.035 pH, UA (test code = 5803-2) 6.0 5.0-8.0 Protein, UA (test code = 59505-4) 30 mg/dL Negative A Glucose, UA (test code = 365) Negative Negative Ketones, UA (test code = 2514-8) Negative Negative Bilirubin, UA (test code = 88986-1) Negative Negative Blood, UA (test code = 11854-7) Small Negative A Nitrite, UA (test code = 5802-4) Negative Negative Leukocytes, UA (test code = 5799-2) Negative Negative Urobilinogen, UA (test code = 34602-7) 0.2 0.2-1.0 RBC, UA (test code = 09426-7) 51 See_Comment [Automated message] The system which [...] Occasional Squam Epithel, UA (test code = 08823-0) See_Comment [Automated message] The system which generated this result transmitted reference range: /HPF. The reference range was not used to interpret this result as normal/abnormal. Specimen Source (test code = 2795) LYNDSAY (test code = LYNDSAY) Engineer System Administrator ID - [auto]Engineer System Administrator ID - tech Lab Interpretation (test code = 08759-8) [facility]23-[facility]-30 08:43:51* Test Item Value Reference Range Interpretation Comme nts Color, UA (test code = 5778-6) Yellow Clarity, UA (test code = 5767-9) Clear Specific [place], UA (test code = 5811-5) 1.033 1.001-1.035 pH, UA (test code = 5803-2) 6.0 5.0-8.0 Protein, UA (test code = 83392-9) 30 mg/dL Negative A Glucose, UA (test code = 365) Negative Negative Ketones, UA (test code = 2514-8) Negative Negative Bilirubin, UA (test code = 50943-3) Negative Negative Blood, UA (test code = 38477-1) Small Negative A Nitrite, UA (test code = 5802-4) Negative Negative Leukocytes, UA (test code = 5799-2) Negative Negative Urobilinogen, UA (test code = 48839-8) 0.2 0.2-1.0 RBC, UA (test code = 76452-7) 51 See_Comment [Automated message] The system which [...] Occasional Squam Epithel, UA (test code = 10408-1) See_Comment [Automated message] The system which generated this result transmitted reference range: /HPF. The reference range was not used to interpret this result as normal/abnormal. Specimen Source (test code = 2795) LYNDSAY (test code = LYNDSAY) Engineer System Administrator ID - [auto]Engineer System Administrator ID - tech Lab Interpretation (test code = 10686-2) [facility] 2023-[facility]-30 08:43:51* Test Item Value Reference Range Interpretation Comme nts Color, UA (test code = 5778-6) Yellow Clarity, UA (test code = 5767-9) Clear Specific [place], UA (test code = 5811-5) 1.033 1.001-1.035 pH, UA (test code = 5803-2) 6.0 5.0-8.0 Protein, UA (test code = 47204-4) 30 mg/dL Negative A Glucose, UA (test code = 365) Negative Negative Ketones, UA (test code = 2514-8) Negative Negative Bilirubin, UA (test code = 54740-0) Negative Negative Blood, UA (test code = 90130-3) Small Negative A Nitrite, UA (test code = 5802-4) Negative Negative Leukocytes, UA (test code = 5799-2) Negative Negative Urobilinogen, UA (test code = 68773-8) 0.2 0.2-1.0 RBC, UA (test code = 13117-9) 51 See_Comment [Automated message] The system which [...] Occasional Squam Epithel, UA (test code = 34893-7) See_Comment [Automated message] The system which generated this result transmitted reference range: /HPF. The reference range was not used to interpret this result as normal/abnormal. Specimen Source (test code = 2795) LYNDSAY (test code = LYNDSAY) Engineer System Administrator ID - [auto]Engineer System Administrator ID - tech Lab Interpretation (test code = 49135-6) [facility] [place] [facility] Reflex [facility] Culture 2023-03-30 08:43:51* Test Item Value Reference Range Interpretation Comme nts Color, UA (test code = 5778-6) Yellow Clarity, UA (test code = 5767-9) Clear Specific [place], UA (test code = 5811-5) 1.033 1.001-1.035 pH, UA (test code = 5803-2) 6.0 5.0-8.0 Protein, UA (test code = 83738-5) 30 mg/dL Negative A Glucose, UA (test code = 365) Negative Negative Ketones, UA (test code = 2514-8) Negative Negative Bilirubin, UA (test code = 36704-2) Negative Negative Blood, UA (test code = 78276-8) Small Negative A Nitrite, UA (test code = 5802-4) Negative Negative Leukocytes, UA (test code = 5799-2) Negative Negative Urobilinogen, UA (test code = 62592-9) 0.2 0.2-1.0 RBC, UA (test code = 03697-0) 51 See_Comment [Automated message] The system which [...] Occasional Squam Epithel, UA (test code = 97465-0) See_Comment [Automated message] The system which generated this result transmitted reference range: /HPF. The reference range was not used to interpret this result as normal/abnormal. Specimen Source (test code = 2795) LYNDSAY (test code = LYNDSAY) Engineer System Administrator ID - [auto]Engineer System Administrator ID - tech Lab Interpretation (test code = 87056-4) [facility] Reflex [facility] Culture 2023-03-30 08:43:51* Test Item Value Reference Range Interpretation Comme nts Color, UA (test code = 5778-6) Yellow Clarity, UA (test code = 5767-9) Clear Specific [place], UA (test code = 5811-5) 1.033 1.001-1.035 pH, UA (test code = 5803-2) 6.0 5.0-8.0 Protein, UA (test code = 65398-2) 30 mg/dL Negative A Glucose, UA (test code = 365) Negative Negative Ketones, UA (test code = 2514-8) Negative Negative Bilirubin, UA (test code = 77654-1) Negative Negative Blood, UA (test code = 81793-6) Small Negative A Nitrite, UA (test code = 5802-4) Negative Negative Leukocytes, UA (test code = 5799-2) Negative Negative Urobilinogen, UA (test code = 31496-2) 0.2 0.2-1.0 RBC, UA (test code = 78105-8) 51 See_Comment [Automated message] The system which [...] Occasional Squam Epithel, UA (test code = 97553-6) See_Comment [Automated message] The system which generated this result transmitted reference range: /HPF. The reference range was not used to interpret this result as normal/abnormal. Specimen Source (test code = 2795) LYNDSAY (test code = LYNDSAY) Engineer System Administrator ID - [auto]Engineer System Administrator ID - tech Lab Interpretation (test code = 70610-2) [facility]normal [facility] + Reflex to Culture 2023-03-30 08:43:51* Test Item Value Reference Range Interpretation Comme nts Color, UA (test code = 5778-6) Yellow Clarity, UA (test code = 5767-9) Clear Specific [place], UA (test code = 5811-5) 1.033 1.001-1.035 pH, UA (test code = 5803-2) 6.0 5.0-8.0 Protein, UA (test code = 16865-8) 30 mg/dL Negative A Glucose, UA (test code = 365) Negative Negative Ketones, UA (test code = 2514-8) Negative Negative Bilirubin, UA (test code = 63347-5) Negative Negative Blood, UA (test code = 94473-4) Small Negative A Nitrite, UA (test code = 5802-4) Negative Negative Leukocytes, UA (test code = 5799-2) Negative Negative Urobilinogen, UA (test code = 81227-3) 0.2 0.2-1.0 RBC, UA (test code = 87805-6) 51 See_Comment [Automated message] The system which [...] Occasional Squam Epithel, UA (test code = 17291-4) See_Comment [Automated message] The system which generated this result transmitted reference range: /HPF. The reference range was not used to interpret this result as normal/abnormal. Specimen Source (test code = 2795) LYNDSAY (test code = LYNDSAY) Engineer System Administrator ID - [auto]Engineer System Administrator ID - tech Lab Interpretation (test code = 52465-5) [facility]normal [facility] Reflex to Culture 2023-03-30 08:43:51* Test Item Value Reference Range Interpretation Comme nts Color, UA (test code = 5778-6) Yellow Clarity, UA (test code = 5767-9) Clear Specific [place], UA (test code = 5811-5) 1.033 1.001-1.035 pH, UA (test code = 5803-2) 6.0 5.0-8.0 Protein, UA (test code = 27195-5) 30 mg/dL Negative A Glucose, UA (test code = 365) Negative Negative Ketones, UA (test code = 2514-8) Negative Negative Bilirubin, UA (test code = 94554-5) Negative Negative Blood, UA (test code = 49114-8) Small Negative A Nitrite, UA (test code = 5802-4) Negative Negative Leukocytes, UA (test code = 5799-2) Negative Negative Urobilinogen, UA (test code = 53581-4) 0.2 0.2-1.0 RBC, UA (test code = 50143-2) 51 See_Comment [Automated message] The system which [...] Occasional Squam Epithel, UA (test code = 28901-3) See_Comment [Automated message] The system which generated this result transmitted reference range: /HPF. The reference range was not used to interpret this result as normal/abnormal. Specimen Source (test code = 2795) LYNDSAY (test code = LYNDSAY) Engineer System Administrator ID - [auto]Engineer System Administrator ID - tech Lab Interpretation (test code = 13362-3) [facility]normal [facility] Reflex to Culture 2023-03-30 08:43:51* Test Item Value Reference Range Interpretation Comme nts Color, UA (test code = 5778-6) Yellow Clarity, UA (test code = 5767-9) Clear Specific [place], UA (test code = 5811-5) 1.033 1.001-1.035 pH, UA (test code = 5803-2) 6.0 5.0-8.0 Protein, UA (test code = 16803-5) 30 mg/dL Negative A Glucose, UA (test code = 365) Negative Negative Ketones, UA (test code = 2514-8) Negative Negative Bilirubin, UA (test code = 52208-6) Negative Negative Blood, UA (test code = 28810-9) Small Negative A Nitrite, UA (test code = 5802-4) Negative Negative Leukocytes, UA (test code = 5799-2) Negative Negative Urobilinogen, UA (test code = 93925-0) 0.2 0.2-1.0 RBC, UA (test code = 93408-0) 51 See_Comment [Automated message] The system which [...] Occasional Squam Epithel, UA (test code = 52395-9) See_Comment [Automated message] The system which generated this result transmitted reference range: /HPF. The reference range was not used to interpret this result as normal/abnormal. Specimen Source (test code = 2795) LYNDSAY (test code = LYNDSAY) Engineer System Administrator ID - [auto]Engineer System Administrator ID - tech Lab Interpretation (test code = 47274-8) [facility] 2023-[facility]-30 08:43:51* Test Item Value Reference Range Interpretation Comme nts Color, UA (test code = 5778-6) Yellow Clarity, UA (test code = 5767-9) Clear Specific [place], UA (test code = 5811-5) 1.033 1.001-1.035 pH, UA (test code = 5803-2) 6.0 5.0-8.0 Protein, UA (test code = 07651-8) 30 mg/dL Negative A Glucose, UA (test code = 365) Negative Negative Ketones, UA (test code = 2514-8) Negative Negative Bilirubin, UA (test code = 79800-5) Negative Negative Blood, UA (test code = 62238-2) Small Negative A Nitrite, UA (test code = 5802-4) Negative Negative Leukocytes, UA (test code = 5799-2) Negative Negative Urobilinogen, UA (test code = 40038-5) 0.2 0.2-1.0 RBC, UA (test code = 60028-7) 51 See_Comment [Automated message] The system which [...] Occasional Squam Epithel, UA (test code = 94856-4) See_Comment [Automated message] The system which generated this result transmitted reference range: /HPF. The reference range was not used to interpret this result as normal/abnormal. Specimen Source (test code = 2795) LYNDSAY (test code = LYNDSAY) Engineer System Administrator ID - [auto]Engineer System Administrator ID - tech Lab Interpretation (test code = 15923-2) [facility] 2023-03-30 08:43:51* Test Item Value Reference Range Interpretation Comme nts Color, UA (test code = 5778-6) Yellow Clarity, UA (test code = 5767-9) Clear Specific [place], UA (test code = 5811-5) 1.033 1.001-1.035 pH, UA (test code = 5803-2) 6.0 5.0-8.0 Protein, UA (test code = 03187-2) 30 mg/dL Negative A Glucose, UA (test code = 365) Negative Negative Ketones, UA (test code = 2514-8) Negative Negative Bilirubin, UA (test code = 09386-6) Negative Negative Blood, UA (test code = 59762-9) Small Negative A Nitrite, UA (test code = 5802-4) Negative Negative Leukocytes, UA (test code = 5799-2) Negative Negative Urobilinogen, UA (test code = 88523-8) 0.2 0.2-1.0 RBC, UA (test code = 26912-1) 51 See_Comment [Automated message] The system which [...] Occasional Squam Epithel, UA (test code = 67991-3) See_Comment [Automated message] The system which generated this result transmitted reference range: /HPF. The reference range was not used to interpret this result as normal/abnormal. Specimen Source (test code = 2795) LYNDSAY (test code = LYNDSAY) Engineer System Administrator ID - [auto]Engineer System Administrator ID - tech Lab Interpretation (test code = 84766-0) [facility] 2023-03-30 08:43:51* Test Item Value Reference Range Interpretation Comme nts Color, UA (test code = 5778-6) Yellow Clarity, UA (test code = 5767-9) Clear Specific [place], UA (test code = 5811-5) 1.033 1.001-1.035 pH, UA (test code = 5803-2) 6.0 5.0-8.0 Protein, UA (test code = 33776-0) 30 mg/dL Negative A Glucose, UA (test code = 365) Negative Negative Ketones, UA (test code = 2514-8) Negative Negative Bilirubin, UA (test code = 07277-4) Negative Negative Blood, UA (test code = 34171-8) Small Negative A Nitrite, UA (test code = 5802-4) Negative Negative Leukocytes, UA (test code = 5799-2) Negative Negative Urobilinogen, UA (test code = 00978-7) 0.2 0.2-1.0 RBC, UA (test code = 67183-4) 51 See_Comment [Automated message] The system which [...] Occasional Squam Epithel, UA (test code = 18363-2) See_Comment [Automated message] The system which generated this result transmitted reference range: /HPF. The reference range was not used to interpret this result as normal/abnormal. Specimen Source (test code = 2795) LYNDSAY (test code = LYNDSAY) Engineer System Administrator ID - [auto]Engineer System Administrator ID - tech Lab Interpretation (test code = 08485-7) [facility] 2023-03-30 08:43:51* Test Item Value Reference Range Interpretation Comme nts Color, UA (test code = 5778-6) Yellow Clarity, UA (test code = 5767-9) Clear Specific [place], UA (test code = 5811-5) 1.033 1.001-1.035 pH, UA (test code = 5803-2) 6.0 5.0-8.0 Protein, UA (test code = 19059-2) 30 mg/dL Negative A Glucose, UA (test code = 365) Negative Negative Ketones, UA (test code = 2514-8) Negative Negative Bilirubin, UA (test code = 89222-5) Negative Negative Blood, UA (test code = 59602-0) Small Negative A Nitrite, UA (test code = 5802-4) Negative Negative Leukocytes, UA (test code = 5799-2) Negative Negative Urobilinogen, UA (test code = 55158-7) 0.2 0.2-1.0 RBC, UA (test code = 87846-8) 51 See_Comment [Automated message] The system which [...] Occasional Squam Epithel, UA (test code = 88764-2) See_Comment [Automated message] The system which generated this result transmitted reference range: /HPF. The reference range was not used to interpret this result as normal/abnormal. Specimen Source (test code = 2795) LYNDSAY (test code = LYNDSAY) Engineer System Administrator ID - [auto]Engineer System Administrator ID - tech Lab Interpretation (test code = 75123-7) [facility] Reflex to Culture 2023-03-30 08:43:51* Test Item Value Reference Range Interpretation Comme nts Color, UA (test code = 5778-6) Yellow Clarity, UA (test code = 5767-9) Clear Specific [place], UA (test code = 5811-5) 1.033 1.001-1.035 pH, UA (test code = 5803-2) 6.0 5.0-8.0 Protein, UA (test code = 10816-2) 30 mg/dL Negative A Glucose, UA (test code = 365) Negative Negative Ketones, UA (test code = 2514-8) Negative Negative Bilirubin, UA (test code = 96726-2) Negative Negative Blood, UA (test code = 42971-2) Small Negative A Nitrite, UA (test code = 5802-4) Negative Negative Leukocytes, UA (test code = 5799-2) Negative Negative Urobilinogen, UA (test code = 93661-8) 0.2 0.2-1.0 RBC, UA (test code = 08976-1) 51 See_Comment [Automated message] The system which [...] Occasional Squam Epithel, UA (test code = 53257-2) See_Comment [Automated message] The system which generated this result transmitted reference range: /HPF. The reference range was not used to interpret this result as normal/abnormal. Specimen Source (test code = 2795) LYNDSAY (test code = LYNDSAY) Engineer System Administrator ID - [auto]Engineer System Administrator ID - tech Lab Interpretation (test code = 39890-2) [facility]normal [facility] Reflex to Culture 2023-03-30 08:43:51* Test Item Value Reference Range Interpretation Comme nts Color, UA (test code = 5778-6) Yellow Clarity, UA (test code = 5767-9) Clear Specific [place], UA (test code = 5811-5) 1.033 1.001-1.035 pH, UA (test code = 5803-2) 6.0 5.0-8.0 Protein, UA (test code = 88203-4) 30 mg/dL Negative A Glucose, UA (test code = 365) Negative Negative Ketones, UA (test code = 2514-8) Negative Negative Bilirubin, UA (test code = 53077-5) Negative Negative Blood, UA (test code = 65338-3) Small Negative A Nitrite, UA (test code = 5802-4) Negative Negative Leukocytes, UA (test code = 5799-2) Negative Negative Urobilinogen, UA (test code = 36783-6) 0.2 0.2-1.0 RBC, UA (test code = 37904-1) 51 See_Comment [Automated message] The system which [...] Occasional Squam Epithel, UA (test code = 83949-3) See_Comment [Automated message] The system which generated this result transmitted reference range: /HPF. The reference range was not used to interpret this result as normal/abnormal. Specimen Source (test code = 2795) LYNDSAY (test code = LYNDSAY) Engineer System Administrator ID - [auto]Engineer System Administrator ID - tech Lab Interpretation (test code = 66681-4) [facility]normal [facility] Reflex to Culture 2023-03-30 08:43:51* Test Item Value Reference Range Interpretation Comme nts Color, UA (test code = 5778-6) Yellow Clarity, UA (test code = 5767-9) Clear Specific [place], UA (test code = 5811-5) 1.033 1.001-1.035 pH, UA (test code = 5803-2) 6.0 5.0-8.0 Protein, UA (test code = 92529-3) 30 mg/dL Negative A Glucose, UA (test code = 365) Negative Negative Ketones, UA (test code = 2514-8) Negative Negative Bilirubin, UA (test code = 93005-2) Negative Negative Blood, UA (test code = 48070-4) Small Negative A Nitrite, UA (test code = 5802-4) Negative Negative Leukocytes, UA (test code = 5799-2) Negative Negative Urobilinogen, UA (test code = 02634-5) 0.2 0.2-1.0 RBC, UA (test code = 06792-7) 51 See_Comment [Automated message] The system which [...] Occasional Squam Epithel, UA (test code = 14557-9) See_Comment [Automated message] The system which generated this result transmitted reference range: /HPF. The reference range was not used to interpret this result as normal/abnormal. Specimen Source (test code = 2795) LYNDSAY (test code = LYNDSAY) Engineer System Administrator ID - [auto]Engineer System Administrator ID - tech Lab Interpretation (test code = 31899-4) [facility] 2023-[facility]30 08:43:51* Test Item Value Reference Range Interpretation Comme nts Color, UA (test code = 5778-6) Yellow Clarity, UA (test code = 5767-9) Clear Specific [place], UA (test code = 5811-5) 1.033 1.001-1.035 pH, UA (test code = 5803-2) 6.0 5.0-8.0 Protein, UA (test code = 87137-2) 30 mg/dL Negative A Glucose, UA (test code = 365) Negative Negative Ketones, UA (test code = 2514-8) Negative Negative Bilirubin, UA (test code = 02140-5) Negative Negative Blood, UA (test code = 88718-5) Small Negative A Nitrite, UA (test code = 5802-4) Negative Negative Leukocytes, UA (test code = 5799-2) Negative Negative Urobilinogen, UA (test code = 03992-7) 0.2 0.2-1.0 RBC, UA (test code = 66594-2) 51 See_Comment [Automated message] The system which [...] Occasional Squam Epithel, UA (test code = 07841-8) See_Comment [Automated message] The system which generated this result transmitted reference range: /HPF. The reference range was not used to interpret this result as normal/abnormal. Specimen Source (test code = 2795) LYNDSAY (test code = LYNDSAY) Engineer System Administrator ID - [auto]Engineer System Administrator ID - tech Lab Interpretation (test code = 32803-2) [facility] 2023-03-30 08:43:51* Test Item Value Reference Range Interpretation Comme nts Color, UA (test code = 5778-6) Yellow Clarity, UA (test code = 5767-9) Clear Specific [place], UA (test code = 5811-5) 1.033 1.001-1.035 pH, UA (test code = 5803-2) 6.0 5.0-8.0 Protein, UA (test code = 10317-4) 30 mg/dL Negative A Glucose, UA (test code = 365) Negative Negative Ketones, UA (test code = 2514-8) Negative Negative Bilirubin, UA (test code = 96169-3) Negative Negative Blood, UA (test code = 86767-0) Small Negative A Nitrite, UA (test code = 5802-4) Negative Negative Leukocytes, UA (test code = 5799-2) Negative Negative Urobilinogen, UA (test code = 14701-5) 0.2 0.2-1.0 RBC, UA (test code = 62533-9) 51 See_Comment [Automated message] The system which [...] Occasional Squam Epithel, UA (test code = 08216-6) See_Comment [Automated message] The system which generated this result transmitted reference range: /HPF. The reference range was not used to interpret this result as normal/abnormal. Specimen Source (test code = 2795) LYNDSAY (test code = LYNDSAY) Engineer System Administrator ID - [auto]Engineer System Administrator ID - tech Lab Interpretation (test code = 54709-8) [facility] 08:43:51* Test Item Value Reference Range Interpretation Comme nts Color, UA (test code = 5778-6) Yellow Clarity, UA (test code = 5767-9) Clear Specific [place], UA (test code = 5811-5) 1.033 1.001-1.035 pH, UA (test code = 5803-2) 6.0 5.0-8.0 Protein, UA (test code = 01600-3) 30 mg/dL Negative A Glucose, UA (test code = 365) Negative Negative Ketones, UA (test code = 2514-8) Negative Negative Bilirubin, UA (test code = 91937-3) Negative Negative Blood, UA (test code = 15758-5) Small Negative A Nitrite, UA (test code = 5802-4) Negative Negative Leukocytes, UA (test code = 5799-2) Negative Negative Urobilinogen, UA (test code = 08870-7) 0.2 0.2-1.0 RBC, UA (test code = 65880-9) 51 See_Comment [Automated message] The system which [...] Occasional Squam Epithel, UA (test code = 11106-5) See_Comment [Automated message] The system which generated this result transmitted reference range: /HPF. The reference range was not used to interpret this result as normal/abnormal. Specimen Source (test code = 2795) LYNDSAY (test code = LYNDSAY) Engineer System Administrator ID - [auto]Engineer System Administrator ID - tech Lab Interpretation (test code = 82256-9) [facility] 2023-03-30 08:43:51* Test Item Value Reference Range Interpretation Comme nts Color, UA (test code = 5778-6) Yellow Clarity, UA (test code = 5767-9) Clear Specific [place], UA (test code = 5811-5) 1.033 1.001-1.035 pH, UA (test code = 5803-2) 6.0 5.0-8.0 Protein, UA (test code = 89504-7) 30 mg/dL Negative A Glucose, UA (test code = 365) Negative Negative Ketones, UA (test code = 2514-8) Negative Negative Bilirubin, UA (test code = 48841-8) Negative Negative Blood, UA (test code = 23870-4) Small Negative A Nitrite, UA (test code = 5802-4) Negative Negative Leukocytes, UA (test code = 5799-2) Negative Negative Urobilinogen, UA (test code = 23452-1) 0.2 0.2-1.0 RBC, UA (test code = 73127-8) 51 See_Comment [Automated message] The system which [...] Occasional Squam Epithel, UA (test code = 55461-1) See_Comment [Automated message] The system which generated this result transmitted reference range: /HPF. The reference range was not used to interpret this result as normal/abnormal. Specimen Source (test code = 2795) LYNDSAY (test code = LYNDSAY) Engineer System Administrator ID - [auto]Engineer System Administrator ID - tech Lab Interpretation (test code = 42196-5) [facility] Reflex [facility] Culture 2023-03-30 08:43:51* Test Item Value Reference Range Interpretation Comme nts Color, UA (test code = 5778-6) Yellow Clarity, UA (test code = 5767-9) Clear Specific [place], UA (test code = 5811-5) 1.033 1.001-1.035 pH, UA (test code = 5803-2) 6.0 5.0-8.0 Protein, UA (test code = 24460-9) 30 mg/dL Negative A Glucose, UA (test code = 365) Negative Negative Ketones, UA (test code = 2514-8) Negative Negative Bilirubin, UA (test code = 18765-1) Negative Negative Blood, UA (test code = 56259-8) Small Negative A Nitrite, UA (test code = 5802-4) Negative Negative Leukocytes, UA (test code = 5799-2) Negative Negative Urobilinogen, UA (test code = 26256-7) 0.2 0.2-1.0 RBC, UA (test code = 46015-3) 51 See_Comment [Automated message] The system which [...] Occasional Squam Epithel, UA (test code = 08702-9) See_Comment [Automated message] The system which generated this result transmitted reference range: /HPF. The reference range was not used to interpret this result as normal/abnormal. Specimen Source (test code = 2795) LYNDSAY (test code = LYNDSAY) Engineer System Administrator ID - [auto]Engineer System Administrator ID - tech Lab Interpretation (test code = 12091-0) [facility] 2023-03-30 08:43:51* Test Item Value Reference Range Interpretation Comme nts Color, UA (test code = 5778-6) Yellow Clarity, UA (test code = 5767-9) Clear Specific [place], UA (test code = 5811-5) 1.033 1.001-1.035 pH, UA (test code = 5803-2) 6.0 5.0-8.0 Protein, UA (test code = 83487-0) 30 mg/dL Negative A Glucose, UA (test code = 365) Negative Negative Ketones, UA (test code = 2514-8) Negative Negative Bilirubin, UA (test code = 15072-2) Negative Negative Blood, UA (test code = 73160-7) Small Negative A Nitrite, UA (test code = 5802-4) Negative Negative Leukocytes, UA (test code = 5799-2) Negative Negative Urobilinogen, UA (test code = 26024-3) 0.2 0.2-1.0 RBC, UA (test code = 63160-0) 51 See_Comment [Automated message] The system which [...] Occasional Squam Epithel, UA (test code = 00844-5) See_Comment [Automated message] The system which generated this result transmitted reference range: /HPF. The reference range was not used to interpret this result as normal/abnormal. Specimen Source (test code = 2795) LYDNSAY (test code = LYNDSAY) Engineer System Administrator ID - [auto]Engineer System Administrator ID - tech Lab Interpretation (test code = 47536-7) [facility]normal [facility] Reflex to Culture 2023-03-30 08:43:51* Test Item Value Reference Range Interpretation Comme nts Color, UA (test code = 5778-6) Yellow Clarity, UA (test code = 5767-9) Clear Specific [place], UA (test code = 5811-5) 1.033 1.001-1.035 pH, UA (test code = 5803-2) 6.0 5.0-8.0 Protein, UA (test code = 76265-9) 30 mg/dL Negative A Glucose, UA (test code = 365) Negative Negative Ketones, UA (test code = 2514-8) Negative Negative Bilirubin, UA (test code = 15862-5) Negative Negative Blood, UA (test code = 50966-8) Small Negative A Nitrite, UA (test code = 5802-4) Negative Negative Leukocytes, UA (test code = 5799-2) Negative Negative Urobilinogen, UA (test code = 26371-7) 0.2 0.2-1.0 RBC, UA (test code = 76852-2) 51 See_Comment [Automated message] The system which [...] Occasional Squam Epithel, UA (test code = 84043-6) See_Comment [Automated message] The system which generated this result transmitted reference range: /HPF. The reference range was not used to interpret this result as normal/abnormal. Specimen Source (test code = 2795) LYNDSAY (test code = LYNDSAY) Engineer System Administrator ID - [auto]Engineer System Administrator ID - tech Lab Interpretation (test code = 19936-5) [facility]normal [facility] [place] [facility] Reflex to Culture 2023-03-30 08:43:51* Test Item Value Reference Range Interpretation Comme nts Color, UA (test code = 5778-6) Yellow Clarity, UA (test code = 5767-9) Clear Specific [place], UA (test code = 5811-5) 1.033 1.001-1.035 pH, UA (test code = 5803-2) 6.0 5.0-8.0 Protein, UA (test code = 17639-8) 30 mg/dL Negative A Glucose, UA (test code = 365) Negative Negative Ketones, UA (test code = 2514-8) Negative Negative Bilirubin, UA (test code = 01892-8) Negative Negative Blood, UA (test code = 29840-5) Small Negative A Nitrite, UA (test code = 5802-4) Negative Negative Leukocytes, UA (test code = 5799-2) Negative Negative Urobilinogen, UA (test code = 63230-0) 0.2 0.2-1.0 RBC, UA (test code = 64536-4) 51 See_Comment [Automated message] The system which [...] Occasional Squam Epithel, UA (test code = 69369-7) See_Comment [Automated message] The system which generated this result transmitted reference range: /HPF. The reference range was not used to interpret this result as normal/abnormal. Specimen Source (test code = 2795) LYNDSAY (test code = LYNDSAY) Engineer System Administrator ID - [auto]Engineer System Administrator ID - tech Lab Interpretation (test code = 47470-9) [facility] 2023-03-30 08:43:51* Test Item Value Reference Range Interpretation Comme nts Color, UA (test code = 5778-6) Yellow Clarity, UA (test code = 5767-9) Clear Specific [place], UA (test code = 5811-5) 1.033 1.001-1.035 pH, UA (test code = 5803-2) 6.0 5.0-8.0 Protein, UA (test code = 64428-5) 30 mg/dL Negative A Glucose, UA (test code = 365) Negative Negative Ketones, UA (test code = 2514-8) Negative Negative Bilirubin, UA (test code = 53675-5) Negative Negative Blood, UA (test code = 90339-9) Small Negative A Nitrite, UA (test code = 5802-4) Negative Negative Leukocytes, UA (test code = 5799-2) Negative Negative Urobilinogen, UA (test code = 94188-7) 0.2 0.2-1.0 RBC, UA (test code = 31036-2) 51 See_Comment [Automated message] The system which [...] Occasional Squam Epithel, UA (test code = 41862-7) See_Comment [Automated message] The system which generated this result transmitted reference range: /HPF. The reference range was not used to interpret this result as normal/abnormal. Specimen Source (test code = 2795) LYNDSAY (test code = LYNDSAY) Engineer System Administrator ID - [auto]Engineer System Administrator ID - [employer] Lab Interpretation (test code = 87507-2) [facility] 2023-03-30 08:43:51* Test Item Value Reference Range Interpretation Comme nts Color, UA (test code = 5778-6) Yellow Clarity, UA (test code = 5767-9) Clear Specific [place], UA (test code = 5811-5) 1.033 1.001-1.035 pH, UA (test code = 5803-2) 6.0 5.0-8.0 Protein, UA (test code = 61263-5) 30 mg/dL Negative A Glucose, UA (test code = 365) Negative Negative Ketones, UA (test code = 2514-8) Negative Negative Bilirubin, UA (test code = 08660-4) Negative Negative Blood, UA (test code = 09448-2) Small Negative A Nitrite, UA (test code = 5802-4) Negative Negative Leukocytes, UA (test code = 5799-2) Negative Negative Urobilinogen, UA (test code = 36498-2) 0.2 0.2-1.0 RBC, UA (test code = 30323-1) 51 See_Comment [Automated message] The system which [...] Occasional Squam Epithel, UA (test code = 91660-3) See_Comment [Automated message] The system which generated this result transmitted reference range: /HPF. The reference range was not used to interpret this result as normal/abnormal. Specimen Source (test code = 2795) LYNDSAY (test code = LYNDSAY) Engineer System Administrator ID - [auto]Engineer System Administrator ID - tech Lab Interpretation (test code = 80259-3) [facility]normal [facility] Reflex to Culture 2023-03-30 08:43:51* Test Item Value Reference Range Interpretation Comme nts Color, UA (test code = 5778-6) Yellow Clarity, UA (test code = 5767-9) Clear Specific [place], UA (test code = 5811-5) 1.033 1.001-1.035 pH, UA (test code = 5803-2) 6.0 5.0-8.0 Protein, UA (test code = 68987-8) 30 mg/dL Negative A Glucose, UA (test code = 365) Negative Negative Ketones, UA (test code = 2514-8) Negative Negative Bilirubin, UA (test code = 47494-0) Negative Negative Blood, UA (test code = 37303-4) Small Negative A Nitrite, UA (test code = 5802-4) Negative Negative Leukocytes, UA (test code = 5799-2) Negative Negative Urobilinogen, UA (test code = 27773-9) 0.2 0.2-1.0 RBC, UA (test code = 66759-2) 51 See_Comment [Automated message] The system which [...] Occasional Squam Epithel, UA (test code = 02953-7) See_Comment [Automated message] The system which generated this result transmitted reference range: /HPF. The reference range was not used to interpret this result as normal/abnormal. Specimen Source (test code = 2795) LYNDSAY (test code = LYNDSAY) Engineer System Administrator ID - [auto]Engineer System Administrator ID - tech Lab Interpretation (test code = 37472-6) [facility] Culture 2023-03-30 08:43:51* Test Item Value Reference Range Interpretation Comme nts Color, UA (test code = 5778-6) Yellow Clarity, UA (test code = 5767-9) Clear Specific [place], UA (test code = 5811-5) 1.033 1.001-1.035 pH, UA (test code = 5803-2) 6.0 5.0-8.0 Protein, UA (test code = 61431-1) 30 mg/dL Negative A Glucose, UA (test code = 365) Negative Negative Ketones, UA (test code = 2514-8) Negative Negative Bilirubin, UA (test code = 56878-1) Negative Negative Blood, UA (test code = 80467-3) Small Negative A Nitrite, UA (test code = 5802-4) Negative Negative Leukocytes, UA (test code = 5799-2) Negative Negative Urobilinogen, UA (test code = 45437-9) 0.2 0.2-1.0 RBC, UA (test code = 81051-2) 51 See_Comment [Automated message] The system which [...] Occasional Squam Epithel, UA (test code = 02162-2) See_Comment [Automated message] The system which generated this result transmitted reference range: /HPF. The reference range was not used to interpret this result as normal/abnormal. Specimen Source (test code = 2795) LYNDSAY (test code = LYNDSAY) Engineer System Administrator ID - [auto]Engineer System Administrator ID - tech Lab Interpretation (test code = 90947-2) [facility]normal [facility] Reflex to Culture 2023-03-30 08:43:51* Test Item Value Reference Range Interpretation Comme nts Color, UA (test code = 5778-6) Yellow Clarity, UA (test code = 5767-9) Clear Specific [place], UA (test code = 5811-5) 1.033 1.001-1.035 pH, UA (test code = 5803-2) 6.0 5.0-8.0 Protein, UA (test code = 87432-3) 30 mg/dL Negative A Glucose, UA (test code = 365) Negative Negative Ketones, UA (test code = 2514-8) Negative Negative Bilirubin, UA (test code = 48007-7) Negative Negative Blood, UA (test code = 12592-0) Small Negative A Nitrite, UA (test code = 5802-4) Negative Negative Leukocytes, UA (test code = 5799-2) Negative Negative Urobilinogen, UA (test code = 95655-8) 0.2 0.2-1.0 RBC, UA (test code = 01212-3) 51 See_Comment [Automated message] The system which [...] Occasional Squam Epithel, UA (test code = 25179-8) See_Comment [Automated message] The system which generated this result transmitted reference range: /HPF. The reference range was not used to interpret this result as normal/abnormal. Specimen Source (test code = 2795) LYNDSAY (test code = LYNDSAY) Engineer System Administrator ID - [auto]Engineer System Administrator ID - tech Lab Interpretation (test code = 36828-1) Abnormal [facility] [place] [place] + Reflex to Culture 2023-03-30 08:43:51* Test Item Value Reference Range Interpretation Comme nts Color, UA (test code = 5778-6) Yellow Clarity, UA (test code = 5767-9) Clear Specific [place], UA (test code = 5811-5) 1.033 1.001-1.035 pH, UA (test code = 5803-2) 6.0 5.0-8.0 Protein, UA (test code = 74283-7) 30 mg/dL Negative A Glucose, UA (test code = 365) Negative Negative Ketones, UA (test code = 2514-8) Negative Negative Bilirubin, UA (test code = 39833-6) Negative Negative Blood, UA (test code = 89579-9) Small Negative A Nitrite, UA (test code = 5802-4) Negative Negative Leukocytes, UA (test code = 5799-2) Negative Negative Urobilinogen, UA (test code = 63037-5) 0.2 0.2-1.0 RBC, UA (test code = 91629-2) 51 See_Comment [Automated message] The system which [...] Occasional Squam Epithel, UA (test code = 61012-0) See_Comment [Automated message] The system which generated this result transmitted reference range: /HPF. The reference range was not used to interpret this result as normal/abnormal. Specimen Source (test code = 2795) LYNDSAY (test code = LYNDSAY) Engineer System Administrator ID - [auto]Engineer System Administrator ID - tech Lab Interpretation (test code = 45988-1) [facility]normal [facility] [place] [place] [facility] Reflex to Culture 2023-03-30 08:43:51* Test Item Value Reference Range Interpretation Comme nts Color, UA (test code = 5778-6) Yellow Clarity, UA (test code = 5767-9) Clear Specific [place], UA (test code = 5811-5) 1.033 1.001-1.035 pH, UA (test code = 5803-2) 6.0 5.0-8.0 Protein, UA (test code = 16173-9) 30 mg/dL Negative A Glucose, UA (test code = 365) Negative Negative Ketones, UA (test code = 2514-8) Negative Negative Bilirubin, UA (test code = 23051-7) Negative Negative Blood, UA (test code = 14267-1) Small Negative A Nitrite, UA (test code = 5802-4) Negative Negative Leukocytes, UA (test code = 5799-2) Negative Negative Urobilinogen, UA (test code = 61539-0) 0.2 0.2-1.0 RBC, UA (test code = 27934-6) 51 See_Comment [Automated message] The system which [...] Occasional Squam Epithel, UA (test code = 88511-0) See_Comment [Automated message] The system which generated this result transmitted reference range: /HPF. The reference range was not used to interpret this result as normal/abnormal. Specimen Source (test code = 2795) LYNDSAY (test code = LYNDSAY) Engineer System Administrator ID - [auto]Engineer System Administrator ID - tech Lab Interpretation (test code = 09913-2) [facility] Culture 2023-03-30 08:43:51* Test Item Value Reference Range Interpretation Comme nts Color, UA (test code = 5778-6) Yellow Clarity, UA (test code = 5767-9) Clear Specific [place], UA (test code = 5811-5) 1.033 1.001-1.035 pH, UA (test code = 5803-2) 6.0 5.0-8.0 Protein, UA (test code = 65917-3) 30 mg/dL Negative A Glucose, UA (test code = 365) Negative Negative Ketones, UA (test code = 2514-8) Negative Negative Bilirubin, UA (test code = 07822-9) Negative Negative Blood, UA (test code = 18118-1) Small Negative A Nitrite, UA (test code = 5802-4) Negative Negative Leukocytes, UA (test code = 5799-2) Negative Negative Urobilinogen, UA (test code = 09443-6) 0.2 0.2-1.0 RBC, UA (test code = 73685-7) 51 See_Comment [Automated message] The system which [...] Occasional Squam Epithel, UA (test code = 94978-6) See_Comment [Automated message] The system which generated this result transmitted reference range: /HPF. The reference range was not used to interpret this result as normal/abnormal. Specimen Source (test code = 2795) LYNDSAY (test code = LYNDSAY) Engineer System Administrator ID - [auto]Engineer System Administrator ID - tech Lab Interpretation (test code = 47390-3) [facility] 2023-03-30 08:43:51* Test Item Value Reference Range Interpretation Comme nts Color, UA (test code = 5778-6) Yellow Clarity, UA (test code = 5767-9) Clear Specific [place], UA (test code = 5811-5) 1.033 1.001-1.035 pH, UA (test code = 5803-2) 6.0 5.0-8.0 Protein, UA (test code = 32090-0) 30 mg/dL Negative A Glucose, UA (test code = 365) Negative Negative Ketones, UA (test code = 2514-8) Negative Negative Bilirubin, UA (test code = 85657-5) Negative Negative Blood, UA (test code = 38564-4) Small Negative A Nitrite, UA (test code = 5802-4) Negative Negative Leukocytes, UA (test code = 5799-2) Negative Negative Urobilinogen, UA (test code = 39651-3) 0.2 0.2-1.0 RBC, UA (test code = 92641-6) 51 See_Comment [Automated message] The system which [...] Occasional Squam Epithel, UA (test code = 57946-1) See_Comment [Automated message] The system which generated this result transmitted reference range: /HPF. The reference range was not used to interpret this result as normal/abnormal. Specimen Source (test code = 2795) LYNDSAY (test code = LYNDSAY) Engineer System Administrator ID - [auto]Engineer System Administrator ID - tech Lab Interpretation (test code = 53166-7) [facility]normal [facility] Reflex to Culture 2023-03-30 08:43:51* Test Item Value Reference Range Interpretation Comme nts Color, UA (test code = 5778-6) Yellow Clarity, UA (test code = 5767-9) Clear Specific [place], UA (test code = 5811-5) 1.033 1.001-1.035 pH, UA (test code = 5803-2) 6.0 5.0-8.0 Protein, UA (test code = 62742-4) 30 mg/dL Negative A Glucose, UA (test code = 365) Negative Negative Ketones, UA (test code = 2514-8) Negative Negative Bilirubin, UA (test code = 95677-6) Negative Negative Blood, UA (test code = 32454-9) Small Negative A Nitrite, UA (test code = 5802-4) Negative Negative Leukocytes, UA (test code = 5799-2) Negative Negative Urobilinogen, UA (test code = 79313-0) 0.2 0.2-1.0 RBC, UA (test code = 91326-8) 51 See_Comment [Automated message] The system which [...] Occasional Squam Epithel, UA (test code = 99510-2) See_Comment [Automated message] The system which generated this result transmitted reference range: /HPF. The reference range was not used to interpret this result as normal/abnormal. Specimen Source (test code = 2795) LYNDSAY (test code = LYNDSAY) Engineer System Administrator ID - [auto]Engineer System Administrator ID - tech Lab Interpretation (test code = 13937-4) [facility] [place] [place] UR[place] [id number] 08:43:51 * Test Item Value Reference Range [...] < /HPF SOURCE(BEAKER) (test code = 2795) Engineer System Administrator ID - [auto]Engineer System Administrator ID - techCOMPREHENSIVE METABOLIC [id number] 04:37:29* Test Item Value Reference Range Interpretation [...] GFR is not applicable for dialysis patients Engineer System Administrator ID - MATT BPT/[id number] 04:30:17* Test Item Value Reference Range Interpretation Comme nts PROTIME (BEAKER) (test code = 759) 13.8 seconds 11.9-14.2 INR (BEAKER) (test code = 370) 1.13 See_Comment [Automated [employer] The system which generated this result transmitted [...] code = 413) 0 /100 WBC 0-0 [id number] 00:00:00Ordered by an unspecified provider.[facility]68[facility]-52 00:00:00Ordered by an unspecified provider. [facility][id number] 00:00:00Ordered by an unspecified provider.[facility] 17:14:06* Test Item Value Reference Range Interpretation Comme nts MAGNESIUM (test code = 1534609961) 1.9 mg/dL 1.7-2.4 Lab Interpretation (test cod e = 54687-9) [facility]OL[facility] PAN[facility] (39573)2022-12-11 15:16:25* Test Item Value Reference Range Interpretation Comme nts NA (test code = 7810282468) 139 mmol/L 135-145 K (test code = 2106428486) 3.5 mmol/L 3.5-5.0 CL (test code = 6743076066) 107 mmol/L 98-108 CO2 TOTAL (test code = 8419142384) 24 mmol/L 23-31 AGAP (test code = 9138601461) 8 2-16 BUN (test code = 2700277705) 9 mg/dL 7-23 GLUCOSE (test code = 8961040798) 129 mg/dL 70-110 H CREATININE (test code = 0735182750) 0.68 mg/dL 0.50-1.04 TOTAL BILI (test code = 5841535172) 0.5 mg/dL 0.1-1.1 CALCIUM (test code = 8728559262) 8.9 mg/dL 8.6-10.6 T PROTEIN (test code = 7572808195) 6.3 g/dL 6.3-8.2 ALBUMIN (test code = 0689903130) 3.8 g/dL 3.5-5.0 ALK PHOS (test code = 9547371697) 87 U/L 34-122 ALTv (test code = 1742-6) 24 U/L 5-35 AST(SGOT) (test code = 7028080848) 21 U/L 13-40 eGFR (test code = 4161491273) 91.6 mL/min/1.73m2 LYNDSAY (test code = LYNDSAY) [...] imaging tests). Lab Interpretation (test code = 91922-2) [facility]TR[facility] [id number] 15:10:45* Test Item Value Reference Range Interpretation Comme nts TROPONIN I (test code = 7678402102) 0.015 ng/mL <=0.034 LYNDSAY (test code = [...] of biotin. Lab Interpretation (test code = 29476-7) [facility]uda[facility] [id number] 15:07:48* Test Item Value Reference Range Interpretation Comme nts NT-proBNP (test code = 1325634488) 1460 pg/mL <=125 H LYNDSAY (test code = LYNDSAY) Biotin has been reported to cause a negative bias, interpret results relative to patient's use of biotin. Lab Interpretation (test code = 24010-5) [facility]normal [facility]-[id number] 14:45:24* Test Item Value Reference Range Interpretation Comments D-DIMER (test code = 5668754091) 0.99 See_Comment H [Automated message] The system [...] a diagnosis. Lab Interpretation (test code = 27641-2) Abnormal [facility] WITH [id number] 14:14:48* Test Item Value Reference Range Interpretation [...] g/dL 31.6-35.1 L RDW-SD (test code = 55818-3) 47.8 fL 39.0-49.9 RDW-CV (test code = 788-0) 16.9 % 12.0-15.5 H PLT (test code = 777-3) 507 See_Comment H [Automated messa ge] The system which generated this result transmitted reference range: 166 - 358 10*3/?L. The reference range was not used to interpret this result as normal/abnormal. MPV (test code = 12631-4) 8.2 fL 9.5-12.9 L NRBC/100 WBC (test code = 4746411503) 0.0 See_Comment [Automated bubl ssage] The system which generated this result transmitted reference range: 0.0 - 10.0 /100 WBCs. The reference range was not used to interpret this result as normal/abnormal. NRBC x10^3 (test code = 6066547047) See_Comment [Automated messa ge] The system which generated this result transmitted reference range: 10*3/?L. The reference range was not used to interpret this result as normal/abnormal. GRAN MAT (NEUT) % (test code = 770-8) 64.5 % IMM GRAN % (test code = 0226814227) 0.30 % LYMPH % (test code = 736-9) 25.6 % MONO % (test code = 5905-5) 7.5 % EOS % (test code = 713-8) 1.0 % BASO % (test code = 706-2) 1.1 % GRAN MAT x10^3(ANC) (test code = 6145497994) 5.07 10*3/uL 1.88-7.09 IMM GRAN x10^3 (test code = 0700716744) 0.00-0.06 LYMPH x10^3 (test code = 731-0) 2.01 10*3/uL 1.32-3.29 MONO x10^3 (test code = 742-7) 0.59 10*3/uL 0.33-0.92 EOS x10^3 (test code = 711-2) 0.08 10*3/uL 0.03-0.39 BASO x10^3 (test code = 704-7) 0.09 10*3/uL 0.01-0.07 H Lab Interpretation (test code = 75524-3) [facility]normal [facility]uda[facility]PR[facility] 13:17:22* Test Item Value Reference Range Interpretation Comme [facility] RPR SCREEN ([employer]) (test co de = 420) Nonreactive Nonreactive HEMOGLOBIN [id number] 10:39:49* Test Item Value Reference Range Interpretation Comme [facility] HEMOGLOBIN A1C ELECTROPHORESIS ([employer]) (test code = 3811) 5.8 % See_Comment [...] 5.7- 6.4% indicates increased risk for diabetes (prediabetes)."Engineer System Administrator ID - ADM VITAMIN [id number] 22:48:27* Test Item Value Reference Range Interpretation Comme [facility] VITAMIN B12 ([employer]) (test c ode = 774) 227 pg/mL 213-816 Engineer System Administrator ID - MARCOTSH/FREE T4 IF [id number] 22:08:28* Test Item Value Reference Range Interpretation Comme nts THYROID STIMULATING HORMONE (BEAKER) (test code = 772) 3.309 uIU/mL 0.350-4.940 Engineer System Administrator ID - JSHIV-1 ANTIGEN WITH HIV-1/2 [id number] 22:08:28* Test Item Value Reference Range Interpretation Comme nts HIV-1 ANTIGEN WITH HIV 1\\T\\2 ANTIBODY (2) (BEAKER) (test code = 2586) Nonreactive Nonreactive Engineer System Administrator ID - JSC-REACTIVE [id number] 21:49:44* Test Item Value Reference Range Interpretation Comme nts C-REACTIVE PROTEIN (BEAKER) (test code = 676) 0.35 mg/dL 0.00-0.50 Engineer System Administrator ID - JSCOMPREHENSIVE METABOLIC [id number] 21:49:43* Test Item Value Reference Range Interpretation [...] GFR is not applicable for dialysis patients Engineer System Administrator ID - JSLIPID [id number] 21:49:43* Test Item Value Reference Range Interpretation [...] Borderline 130-159 High 160-189 Very High >=190 Engineer System Administrator ID - JSCBC W/PLT COUNT & AUTO [id number] 21:34:03* Test Item Value Reference Range Interpretation [...] Interpretation Comme nts Height (test code = 8462804875) in Weight (test code = 2644822070) lbs Systolic BP (test code = 1236509895) mmHg Diastolic BP (test code = 5272354908) mmHg Heart Rate (test code = 3085643149) bpm BSA (test code = 2696038657) 2.00 m2 Ao root diam (test code = 2494367824) 3.20 cm Aortic root (test code = 8588912609) 3.2 cm Ao root annulus (test code = 3911831530) 3.2 cm LVOT diameter (test code = 4576724493) 1.99 cm LVOT area (test code = 6038151366) 3.10 cm2 LVIDD (test code = 6259895982) 5.10 cm Left Ventricular End Diastolic Volume by Teichholz Method (test code = 3271998) 123.0 mL IVS (test code = 5306191575) 1.34 cm Interventricular Septum Diastolic Thickness by 2D (test code = 9826253) 1.34 cm LVPWD (test code = 7161595021) 1.34 cm PW (test code = 2094316519) 1.34 cm 0.6-1.1 EF(Teich) (test code = 7600729287) 41.80 % LVIDS (test code = 3175519937) 4.00 cm Left Ventricular End Systolic Volume by Teichholz Method (test code = 7919910) 71.5 mL FS (test code = 8944973121) 21 % EF - 2D (test code = 82396523) 41.80 % LA size (test code = 4809915916) 4.6 cm Pulmonic Regurgitant End Max Velocity (test code = 9174592699) 119.4 cm/s LAV(MOD-sp4) (test code = 2288123787) 95.00 mL E wave decelartion time (test code = 3626492695) 0.15 s MV stenosis pressure 1/2 time (test code = 7798312743) 45.6 ms MV Peak A Evette (test code = 7331769834) 123.8 cm/s MV Peak E Evette (test code = 5583850986) 109.7 cm/s E/A ratio (test code = 5793303590) ratio MR max PG (test code = 9422739360) 87.20 mm[Hg] MR max evette (test code = 5402943012) 466.90 cm/s Mr max evette (test code = 9656185837) 466.9 m/s MV Prop V (test code = 9762095743) 51.00 cm/s MV E/e' septal (test code = 6348466126) 8.1 cm/s Tapse (test code = 8252218611) 2.21 cm LVOT stroke volume (test code = 3617977084) 49.80 cm3 LVOT peak evette (test code = 3931684923) 89.1 cm/s LVOT mn grad (test code = 0902957857) mmHg AV LVOT peak gradient (test code = 8038203647) mmHg LVOT peak VTI (test code = 5490368220) 16.0 cm LV V1 mean (test code = 3552245327) 64.30 cm/s Aortic valve mean velocity (test code = 7893656458) 133.8 cm/s Ao peak evette (test code = 7139223512) 175.3 cm/s Ao VTI (test code = 2116059108) 32.2 cm AV area by cont VTI (test code = 6407146097) 1.6 cm2 AV area peak evette (test code = 7758485476) 1.6 cm2 Ao max PG (test code = 9845717677) 12.30 mm[Hg] AV peak gradient (test code = 0972694018) mmHg AV valve area (test code = 6560484212) 1.55 cm2 AV mean gradient (test code = 9094462363) mmHg AV regurgitation pressure 1/2 time (test code = 3669601266) 358.5 ms AI dec slope (test code = 9486905831) 364.20 cm/s2 AI max evette (test code = 4624289341) 445.80 cm/s AI max PG (test code = 4967765793) 79.50 mm[Hg] Radiology Study observation (narrative) (test code = 16582-9) LYNDSAY (test code = LYNDSAY) ?Left?Ventricle: Left [...] mL of Lumason ultrasound enhancing agent used. [facility]2022-08-01 10:43:32* Test Item Value Reference Range Interpretation [facility] POCT GLU (test code = 6457383028) 148 mg/dL 70-110 H Lab Interpretation (test cod e = 02412-6) Abnormal [facility] BudaACTIVATED PARTIAL THRMPLAS [id number] 18:39:45* Test Item Value Reference Range Interpretation [facility] Patient (test code = 3173-2) See_Comment [Automated message] The system which generated this result transmitted reference range: 23 - 38 Seconds. The reference range was not used to interpret this result as normal/abnormal. LYNDSAY (test code = LYNDSAY) The [facility] patient population mean normal value for aPTT is 30 seconds. Lab Interpretation (test code = 52792-5) Normal [facility] BudaPROTHROMBIN TIME / [id number] 18:37:42* Test Item Value Reference Range Interpretation [facility] PROTIME PATIENT (test code = 5964-2) See_Comment [Automated [employer] The system which generated this result transmitted reference range: 12.0 - 14.7 Seconds. The reference range was not used to interpret this result as normal/abnormal. INR (test code = 6301-6) Normal INR <1.1; Warfarin Therapeutic range 2.0 to 3.0 or 2.5 to 3.5, depending upon the indications. Lab Interpretation (test code = 10390-4) Normal [facility] BudaTROPONIN [id number] 18:32:01* Test Item Value Reference Range Interpretation Comments TROPONIN I (test code = 1371469146) 0.019 ng/mL See_Comment [Automated message] The system [...] of biotin. Lab Interpretation (test code = 63754-3) Normal [facility] BudaN-TERMINAL [id number] 18:29:01* Test Item Value Reference Range Interpretation Comme nts NT-proBNP (test code = 2341353801) 2770 pg/mL See_Comment H [Automated message] The system which generated this result transmitted reference range: <=125. The reference range was not used to interpret this result as normal/abnormal. LYNDSAY (test code = LYNDSAY) Biotin has been reported to cause a negative bias, interpret results relative to patient's use of biotin. Lab Interpretation (test code = 02720-1) Abnormal [facility]udaCOMP. METABOLIC PANEL (64554)2022-07-31 18:21:42* Test Item Value Reference Range Interpretation Comme nts NA (test code = 6522819396) 136 mmol/L 135-145 K (test code = 0657275227) 4.6 mmol/L 3.5-5.0 CL (test code = 9548629400) 104 mmol/L 98-108 CO2 TOTAL (test code = 7412226393) 26 mmol/L 23-31 AGAP (test code = 8416980704) 2-16 BUN (test code = 3728953870) 9 mg/dL 7-23 GLUCOSE (test code = 7826783742) 97 mg/dL 70-110 CREATININE (test code = 9456280336) 0.64 mg/dL 0.50-1.04 TOTAL BILI (test code = 0699169339) 0.5 mg/dL 0.1-1.1 CALCIUM (test code = 6568611857) 8.2 mg/dL 8.6-10.6 L T PROTEIN (test code = 1933930858) 6.5 g/dL 6.3-8.2 ALBUMIN (test code = 4631448113) 3.9 g/dL 3.5-5.0 ALK PHOS (test code = 5570359607) 93 U/L 34-122 ALTv (test code = 1742-6) 18 U/L 5-35 AST(SGOT) (test code = 6051231233) 19 U/L 13-40 eGFR (test code = 2868885816) mL/min/1.73m2 LYNDSAY (test code = LYNDSAY) Association [...] imaging tests). Lab Interpretation (test code = 89988-7) [facility]normal [facility] BudaLIPASE2023-01-12 18:21:01* Test Item Value Reference Range Interpretation Comme nts LIPASE (test code = 4420497351) 54 U/L 0-220 Lab Interpretation (test cod e = 98095-1) Normal [facility]udaCB WITH [id number] 18:07:00* Test Item Value Reference Range Interpretation [...] g/dL 31.6-35.1 L RDW-SD (test code = 10897-2) 53.1 fL 39.0-49.9 H RDW-CV (test code = 788-0) 17.0 % 12.0-15.5 H PLT (test code = 777-3) See_Comment H [Automated messa ge] The system which generated this result transmitted reference range: 166 - 358 10*3/?L. The reference range was not used to interpret this result as normal/abnormal. MPV (test code = 52074-5) 8.2 fL 9.5-12.9 L NRBC/100 WBC (test code = 8159680739) See_Comment [Automated me ssage] The system which generated this result transmitted reference range: 0.0 - 10.0 /100 WBCs. The reference range was not used to interpret this result as normal/abnormal. NRBC x10^3 (test code = 4153482265) See_Comment [Automated messa ge] The system which generated this result transmitted reference range: 10*3/?L. The reference range was not used to interpret this result as normal/abnormal. GRAN MAT (NEUT) % (test code = 770-8) 64.0 % IMM GRAN % (test code = 8078851606) 0.40 % LYMPH % (test code = 736-9) 27.3 % MONO % (test code = 5905-5) 6.5 % EOS % (test code = 713-8) 1.1 % BASO % (test code = 706-2) 0.7 % GRAN MAT x10^3(ANC) (test code = 3172951305) 5.46 10*3/uL 1.88-7.09 IMM GRAN x10^3 (test code = 7734045768) 0.03 10*3/uL 0.00-0.06 LYMPH x10^3 (test code = 731-0) 2.32 10*3/uL 1.32-3.29 MONO x10^3 (test code = 742-7) 0.55 10*3/uL 0.33-0.92 EOS x10^3 (test code = 711-2) 0.09 10*3/uL 0.03-0.39 BASO x10^3 (test code = 704-7) 0.06 10*3/uL 0.01-0.07 Lab Interpretation (test code = 45190-1) Abnormal [facility] METABOLIC PANEL (NA, K, CL, CO2, GLUCOSE, BUN, CREATININE, CA)2022-05-08 06:37:01* Test Item Value Reference Range Interpretation Comme nts NA (test code = 3628943192) 137 mmol/L 135-145 K (test code = 6628599209) 3.8 mmol/L 3.5-5 CL (test code = 7491643052) 103 mmol/L 98-108 CO2 TOTAL (test code = 0663027844) 24 mmol/L 23-31 AGAP (test code = 9721079994) 2-16 BUN (test code = 0740031946) 13 mg/dL 7-23 GLUCOSE (test code = 2489895033) 90 mg/dL 70-110 CREATININE (test code = 9540277084) 0.69 mg/dL 0.5-1.04 CALCIUM (test code = 1619352574) 8.5 mg/dL 8.6-10.6 L eGFR (test code = 3064844436) mL/min/1.73m2 LYNDSAY (test code = LYNDSAY) Association [...] imaging tests). Lab Interpretation (test code = 93460-5) Abnormal [facility] BudaMAGNESIUM2022-10-20 06:37:01* Test Item Value Reference Range Interpretation Comme nts MAGNESIUM (test code = 0411394698) 2.1 mg/dL 1.7-2.4 Lab Interpretation (test cod e = 71112-6) Normal [facility] BudaPHOSPHORUS2022-10-20 06:37:01* Test Item Value Reference Range Interpretation Comme nts PHOSPHORUS (test code = 6534905237) 4.7 mg/dL 2.5-5 Lab Interpretation (test cod e = 68977-1) Normal [facility]uda[facility] WITH [id number] 06:11:54* Test Item Value Reference Range Interpretation [...] 32.4 g/dL 31.6-35.1 RDW-SD (test code = 27554-9) 51.0 fL 39-49.9 H RDW-CV (test code = 788-0) 16.5 % 12-15.5 H PLT (test code = 777-3) See_Comment H [Automated messa ge] The system which generated this result transmitted reference range: 166 - 358 10*3/?L. The reference range was not used to interpret this result as normal/abnormal. MPV (test code = 06919-6) 8.3 fL 9.5-12.9 L NRBC/100 WBC (test code = 0439213623) See_Comment [Automated bubl ssage] The system which generated this result transmitted reference range: 0.0 - 10.0 /100 WBCs. The reference range was not used to interpret this result as normal/abnormal. NRBC x10^3 (test code = 4149032227) See_Comment [Automated messa ge] The system which generated this result transmitted reference range: 10*3/?L. The reference range was not used to interpret this result as normal/abnormal. GRAN MAT (NEUT) % (test code = 770-8) 64.5 % IMM GRAN % (test code = 2484574832) 0.50 % LYMPH % (test code = 736-9) 27.1 % MONO % (test code = 5905-5) 6.6 % EOS % (test code = 713-8) 0.6 % BASO % (test code = 706-2) 0.7 % GRAN MAT x10^3(ANC) (test code = 5653429630) 5.28 10*3/uL 1.88-7.09 IMM GRAN x10^3 (test code = 9880882741) 0.04 10*3/uL 0-0.06 LYMPH x10^3 (test code = 731-0) 2.22 10*3/uL 1.32-3.29 MONO x10^3 (test code = 742-7) 0.54 10*3/uL 0.33-0.92 EOS x10^3 (test code = 711-2) 0.05 10*3/uL 0.03-0.39 BASO x10^3 (test code = 704-7) 0.06 10*3/uL 0.01-0.07 Lab Interpretation (test code = 66696-4) Abnormal [facility]uda[facility]OMATED[facility]2022-05-07 01:18:10* Test Item Value Reference Range Interpretation Comme nts POCT GLU (test code = 5617540687) 120 mg/dL 70-110 H Lab Interpretation (test cod e = 36818-3) Abnormal [facility] BudaType and Screen - ONCE [id number] 05:46:35* Test Item Value Reference Range Interpretation Comme nts ABO & RH (test code = 20) O POSITIVE Performed at [facility] B Laboratory Services - [facility] Blood [address] [address]Qsyz Free: [phone] No. [id number] IAT (test code = 1185) Negative Performed at [facility] B Laboratory Services - [facility] Blood [address] [address]Dert Free: [phone] No. [id number] [facility] METABOLIC PANEL (NA, K, CL, CO2, GLUCOSE, BUN, CREATININE, CA)2022-05-05 08:22:57* Test Item Value Reference Range Interpretation Comme nts NA (test code = 6640019594) 136 mmol/L 135-145 K (test code = 3325667160) 4.9 mmol/L 3.5-5 CL (test code = 5426702213) 108 mmol/L 98-108 CO2 TOTAL (test code = 6261469962) 22 mmol/L 23-31 L AGAP (test code = 5227965018) 2-16 BUN (test code = 4690479594) 12 mg/dL 7-23 GLUCOSE (test code = 7453765373) 155 mg/dL 70-110 H CREATININE (test code = 0406662243) 0.63 mg/dL 0.5-1.04 CALCIUM (test code = 4136601980) 8.4 mg/dL 8.6-10.6 L eGFR (test code = 1426249363) mL/min/1.73m2 LYNDSAY (test code = LYNDSAY) Association [...] imaging tests). Lab Interpretation (test code = 25653-9) Abnormal [facility] BudaPROTHROMBIN TIME / [id number] 08:22:37* Test Item Value Reference Range Interpretation Comme [facility] PROTIME PATIENT (test code = 5964-2) See_Comment [Automated [employer] The system which generated this result transmitted reference range: 10.1 - 12.6 Seconds. The reference range was not used to interpret this result as normal/abnormal. INR (test code = 6301-6) Normal INR <1.1; Warfarin Therapeutic range 2.0 to 3.0 or 2.5 to 3.5, depending upon the indications. Lab Interpretation (test code = 04223-8) Normal [facility] BudaaPTT2022-10-17 08:22:37* Test Item Value Reference Range Interpretation Comme [facility] APTT Patient (test code = 3173-2) See_Comment [Automated [employer] The system which generated this result transmitted reference range: 26 - 36 Seconds. The reference range was not used to interpret this result as normal/abnormal. Lab Interpretation (test code = 07306-2) Normal [facility] BudaFIBRINOGEN2022-10-17 08:22:37* Test Item Value Reference Range Interpretation Comme [facility] Fibrinogen (test code = 9052409865) 294 mg/dL 167-453 Lab Interpretation (test cod e = 92005-4) Normal [facility]udaCB WITH [id number] 08:15:01* Test Item Value Reference Range Interpretation Comme nts WBC (test code = 6690-2) See_Comment [Automated [employer] The system which generated this result transmitted [...] g/dL 31.6-35.1 L RDW-SD (test code = 38411-8) 52.9 fL 39-49.9 H RDW-CV (test code = 788-0) 16.8 % 12-15.5 H PLT (test code = 777-3) See_Comment H [Automated messa ge] The system which generated this result transmitted reference range: 166 - 358 10*3/?L. The reference range was not used to interpret this result as normal/abnormal. MPV (test code = 42726-6) 8.3 fL 9.5-12.9 L NRBC/100 WBC (test code = 1167924517) See_Comment [Automated bubl ssage] The system which generated this result transmitted reference range: 0.0 - 10.0 /100 WBCs. The reference range was not used to interpret this result as normal/abnormal. NRBC x10^3 (test code = 8011265725) See_Comment [Automated messa ge] The system which generated this result transmitted reference range: 10*3/?L. The reference range was not used to interpret this result as normal/abnormal. GRAN MAT (NEUT) % (test code = 770-8) 86.4 % IMM GRAN % (test code = 0876091662) 0.40 % LYMPH % (test code = 736-9) 11.7 % MONO % (test code = 5905-5) 1.1 % EOS % (test code = 713-8) 0.0 % BASO % (test code = 706-2) 0.4 % GRAN MAT x10^3(ANC) (test code = 6964401908) 6.36 10*3/uL 1.88-7.09 IMM GRAN x10^3 (test code = 1850937623) 0.03 10*3/uL 0-0.06 LYMPH x10^3 (test code = 731-0) 0.86 10*3/uL 1.32-3.29 L MONO x10^3 (test code = 742-7) 0.08 10*3/uL 0.33-0.92 L EOS x10^3 (test code = 711-2) 0.03-0.39 L BASO x10^3 (test code = 704-7) 0.03 10*3/uL 0.01-0.07 Lab Interpretation (test code = 17418-7) Abnormal [facility] BudaVITAMIN D, [id number] 20:14:03* Test Item Value Reference Range Interpretation Comme nts VIT D 25OH (test code = 24961-9) 22 ng/mL 25-80 L LYNDSAY (test code = LYNDSAY) Deficiency: <20 ng/mLInsufficiency: 20-24 ng/mLOptimal: 25-80 ng/mL Lab Interpretation (test code = 59457-9) [facility]normal [facility]udaBASI METABOLIC PANEL (NA, K, CL, CO2, GLUCOSE, BUN, CREATININE, CA)2022-04-15 11:27:57* Test Item Value Reference Range Interpretation Comme nts NA (test code = 5998672752) 138 mmol/L 135-145 K (test code = 0503161822) 3.9 mmol/L 3.5-5 CL (test code = 3532711533) 106 mmol/L 98-108 CO2 TOTAL (test code = 4193149919) 23 mmol/L 23-31 AGAP (test code = 6140954955) 2-16 BUN (test code = 3492232737) 10 mg/dL 7-23 GLUCOSE (test code = 2366738754) 91 mg/dL 70-110 CREATININE (test code = 1036621320) 0.65 mg/dL 0.5-1.04 CALCIUM (test code = 8315144988) 8.1 mg/dL 8.6-10.6 L eGFR (test code = 0160958471) mL/min/1.73m2 LYNDSAY (test code = LYNDSAY) Association [...] imaging tests). Lab Interpretation (test code = 42607-9) [facility]normal [facility] BudaSTROKE Protocol - Transthoracic echo (TTE) 2022-04-14 22:07:33* Test Item Value Reference Range Interpretation Comme nts Height (test code = 4424058714) in Weight (test code = 4033585722) lbs Systolic BP (test code = 3519566860) mmHg Diastolic BP (test code = 7440171716) mmHg Heart Rate (test code = 1106352353) bpm BSA (test code = 9897742252) 1.94 m2 TASV (test code = 8903283015) 15.5 cm/s LVIDD (test code = 9134881386) 6.00 cm Left Ventricular End Diastolic Volume by Teichholz Method (test code = 8973973) 183.0 mL IVS (test code = 4401540514) 1.09 cm Interventricular Septum Diastolic Thickness by 2D (test code = 7628827) 1.09 cm LVPWD (test code = 8455144044) 0.94 cm PW (test code = 3963233437) 0.94 cm 0.6-1.1 EF(Teich) (test code = 8524541755) 40.30 % LVIDS (test code = 9414319375) 4.80 cm Left Ventricular End Systolic Volume by Teichholz Method (test code = 9603024) 109.2 mL FS (test code = 5016523810) 20 % EF - 2D (test code = 37830828) 40.30 % LVOT diameter (test code = 1407719156) 2.05 cm LVOT area (test code = 5058415356) 3.30 cm2 Ao root diam (test code = 2505394723) 3.10 cm Aortic root (test code = 9426009595) 3.1 cm Ao root annulus (test code = 1084206234) 3.1 cm LA size (test code = 6767867015) 4.2 cm LAV(MOD-sp4) (test code = 0612281377) 64.90 mL MV Peak A Evette (test code = 5671742596) 115.7 cm/s E wave decelartion time (test code = 2159898875) 0.15 s MV Peak E Evette (test code = 3277027514) 106.2 cm/s E/A ratio (test code = 2845175602) ratio LVOT stroke volume (test code = 8992380407) 48.30 cm3 LVOT peak evette (test code = 4403240992) 78.4 cm/s LVOT mn grad (test code = 0898457775) mmHg AV LVOT peak gradient (test code = 9797714515) mmHg LVOT peak VTI (test code = 7119117459) 14.7 cm LV V1 mean (test code = 9102937371) 51.40 cm/s Ao peak evette (test code = 7714693905) 154.7 cm/s AV area peak evette (test code = 2974927462) 1.7 cm2 Ao max PG (test code = 2502576480) 9.60 mm[Hg] AV peak gradient (test code = 5060718100) mmHg AV regurgitation pressure 1/2 time (test code = 6792890923) 257.3 ms AI dec slope (test code = 5921694972) 498.10 cm/s2 AI max veette (test code = 0189200500) 437.60 cm/s AI max PG (test code = 9184981111) 77.80 mm[Hg] Tapse (test code = 8453427300) 2.19 cm LA Volume Index (BP) (test code = 6397637340) 32.0 mL/m2 LA volume (BP) (test code = 9522601604) 62.1 mL LAV(MOD-sp2) (test code = 7224912782) 52.70 mL A4C EF (test code = 1262777327) 44.80 % EF(sp4-el) (test code = 6472571503) 45.20 % SV(MOD-sp4) (test code = 9642802196) 71.20 mL SV(sp4-el) (test code = 0700315133) 73.90 mL LV Diastolic Volume (BP) (test code = 8172287779) 146.3 mL A2C EF (test code = 1422149971) 52.00 % EF(MOD-bp) (test code = 0493852238) 46.70 % EF(sp2-el) (test code = 4614358680) 52.40 % LV Systolic Volume (BP) (test code = 8900319068) 77.9 mL SV(MOD-bp) (test code = 7496031666) 68.40 mL SV(MOD-sp2) (test code = 5272890206) 69.20 mL EF (test code = 6384557522) Left Ventricular Stroke Volume by 2-D Biplane-MOD (test code = 9194120) 68.4 mL Radiology Study observation (narrative) (test code = 31438-6) LYNDSAY (test code = LYNDSAY) ?Left?Ventricle: Left [...] agent used and saline contrast was performed. [facility]2022-[facility]-14 16:48:36* Test Item Value Reference Range Interpretation Comme [facility] KEPPRA (test code = 5864898697) 12-46 L LYNDSAY (test code = LYNDSAY) Therapeutic range: 12-46 ?g/mL ? ?Toxic: Not well established.Test developed and characteristics determined by [facility] Laboratory Services. Lab Interpretation (test code = 27520-8) Abnormal [facility] Metabolic Panel (Na, K, Cl, CO2, Glucose, BUN, Creatinine, Ca)2022-04-14 10:50:11* Test Item Value Reference Range Interpretation Comme [facility] NA (test code = 6394123776) 136 mmol/L 135-145 K (test code = 1058134651) 3.8 mmol/L 3.5-5 CL (test code = 3330807244) 105 mmol/L 98-108 CO2 TOTAL (test code = 0628629777) 25 mmol/L 23-31 AGAP (test code = 4252716000) 2-16 BUN (test code = 0592426087) 9 mg/dL 7-23 GLUCOSE (test code = 1340809452) 101 mg/dL 70-110 CREATININE (test code = 5228336901) 0.66 mg/dL 0.5-1.04 CALCIUM (test code = 3879916204) 8.1 mg/dL 8.6-10.6 L eGFR (test code = 1440066231) mL/min/1.73m2 LYNDSAY (test code = LYNDSAY) Association [...] imaging tests). Lab Interpretation (test code = 57278-5) Abnormal [facility], [id number] 10:50:11* Test Item Value Reference Range Interpretation Comme nts MAGNESIUM (test code = 3967619931) 1.9 mg/dL 1.7-2.4 Lab Interpretation (test cod e = 61054-7) [facility] Stim[facility] [id number] 22:21:44 * Test Item Value Reference Range Interpretation Comme nts TSH (test code = 3321016042) See_Comment Biotin has been reported to cause a negative bias, interpret results relative to patient's use of biotin. [Automated message] The system which generated this result transmitted reference range: 0.45 - 4.70 mIU/L. The reference range was not used to interpret this result as normal/abnormal. Lab Interpretation (test code = 83135-0) Normal [facility]udaGLYCOSYLATED HEMOGLOBIN (A1C)2022-04-13 21:53:43* Test Item Value Reference Range Interpretation Comme nts HGB A1C (test code = 4548-4) 5.8 % 4-5.7 H LYNDSAY (test code = LYNDSAY) Reference RangesNormal: <5.7%Prediabetes: 5.7 - 6.4%Diabetes: > 6.5% Lab Interpretation (test code = 43624-9) [facility]normal [facility]udaFASTING LIPID PANEL (73621)(TOTAL CHOLESTEROL, TRIGLYCERIDES, HDL)2022-04-13 21:34:53* Test Item Value Reference Range Interpretation Comme nts CHOL (test code = 7077059820) 201 mg/dL 120-200 H HDL (test code = 2013289357) 56 mg/dL See_Comment [Automated [employer]] The system which generated this result transmitted reference range: >=50. The reference range was not used to interpret this result as normal/abnormal. HDLC RATIO (test code = 2838097611) See_Comment [Automated [employer]] The system which generated this result transmitted reference range: <=4.5. The reference range was not used to interpret this result as normal/abnormal. TRIG (test code = 9729802195) 355 mg/dL 30-170 H LDL CHOL (test code = 88444-7) 74 mg/dL See_Comment [Automated [employer]] The system which generated this result transmitted reference range: <=160. The reference range was not used to interpret this result as normal/abnormal. VLDL (test code = 2406726392) 71 mg/dL 5-60 H Lab Interpretation (test code = 34467-6) [facility]normal [facility]uda[facility]rop[facility] I - Code [id number] 18:46:27* Test Item Value Reference Range Interpretation Comments TROPONIN I (test code = 5132174482) 0.013 ng/mL See_Comment [Automated message] The system [...] of biotin. Lab Interpretation (test code = 00656-9) Normal [facility]uda[facility] Met[facility] (NA, K, CL, CO2, Glucose, BUN, Creatinine, CA) - Code [id number] 18:35:07* Test Item Value Reference Range Interpretation Comme nts NA (test code = 8346867367) 136 mmol/L 135-145 K (test code = 7557554415) 4.3 mmol/L 3.5-5 CL (test code = 9391135951) 105 mmol/L 98-108 CO2 TOTAL (test code = 8635535259) 27 mmol/L 23-31 AGAP (test code = 0149701376) 2-16 BUN (test code = 1828345251) 8 mg/dL 7-23 GLUCOSE (test code = 6629687235) 130 mg/dL 70-110 H CREATININE (test code = 9771775500) 0.75 mg/dL 0.5-1.04 CALCIUM (test code = 2822193721) 8.5 mg/dL 8.6-10.6 L eGFR (test code = 7725839813) mL/min/1.73m2 LYNDSAY (test code = LYNDSAY) Association [...] imaging tests). Lab Interpretation (test code = 53637-2) [facility]normal [facility] BudaaPTT - Code [id number] 18:32:46* Test Item Value Reference Range Interpretation Comme [facility] APTT Patient (test code = 3173-2) See_Comment [Automated message] The system which generated this result transmitted reference range: 23 - 38 Seconds. The reference range was not used to interpret this result as normal/abnormal. LYNDSAY (test code = LYNDSAY) The [facility] patient population mean normal value for aPTT is 30 seconds. Lab Interpretation (test code = 99410-1) Normal [facility] BudaProthrombin Time / INR - Code [id number] 18:30:45* Test Item Value Reference Range Interpretation Comme [facility] PROTIME PATIENT (test code = 5964-2) See_Comment [Automated [employer] The system which generated this result transmitted reference range: 12.0 - 14.7 Seconds. The reference range was not used to interpret this result as normal/abnormal. INR (test code = 6301-6) Normal INR <1.1; Warfarin Therapeutic range 2.0 to 3.0 or 2.5 to 3.5, depending upon the indications. Lab Interpretation (test code = 54122-1) Normal [facility] without Diff - Code [id number] 18:23:07* Test Item Value Reference Range Interpretation [...] result as normal/abnormal. MPV (test code = 60676-8) 8.1 fL 9.5-12.9 L RDW-CV (test code = 788-0) 16.1 % 12-15.5 H RDW-SD (test code = 12458-5) 49.2 fL 39-49.9 NRBC x10^3 (test code = 2172210496) See_Comment [Automated messa ge] The system which generated this result transmitted reference range: 10*3/?L. The reference range was not used to interpret this result as normal/abnormal. NRBC/100 WBC (test code = 5962950827) See_Comment [Automated messa [employer]] The system which generated this result transmitted reference range: 0.0 - 10.0 /100 WBCs. The reference range was not used to interpret this result as normal/abnormal. IPF % (test code = 0055210219) Lab Interpretation (test code = 10210-5) Abnormal [facility] BudaTROPONIN [id number] 21:06:40* Test Item Value Reference Range Interpretation Comments TROPONIN I (test code = 6834204761) 0.005 ng/mL See_Comment [Automated message] The system [...] of biotin. Lab Interpretation (test code = 71021-0) Normal [facility]udaCOMP. METABOLIC PANEL (99771)2021-11-23 20:55:42* Test Item Value Reference Range Interpretation Comme nts NA (test code = 9503877970) 137 mmol/L 135-145 K (test code = 1434439818) 4.3 mmol/L 3.5-5.0 CL (test code = 9563459222) 104 mmol/L 98-108 CO2 TOTAL (test code = 6510322222) 22 mmol/L 23-31 L AGAP (test code = 8146131846) 2-16 BUN (test code = 3218805477) 15 mg/dL 7-23 GLUCOSE (test code = 8668481682) 114 mg/dL 70-110 H CREATININE (test code = 7396604241) 0.68 mg/dL 0.50-1.04 TOTAL BILI (test code = 8976258798) 0.5 mg/dL 0.1-1.1 CALCIUM (test code = 2753414793) 9.1 mg/dL 8.6-10.6 T PROTEIN (test code = 0431547234) 7.3 g/dL 6.3-8.2 ALBUMIN (test code = 6628547421) 4.4 g/dL 3.5-5.0 ALK PHOS (test code = 0458334743) 243 U/L 34-122 H ALTv (test code = 1742-6) 24 U/L 5-35 AST(SGOT) (test code = 6005925304) 30 U/L 13-40 eGFR (test code = 6977301624) mL/min/1.73m2 LYNDSAY (test code = LYNDSAY) Association [...] imaging tests). Lab Interpretation (test code = 41878-5) [facility]normal [facility]udaLIPASE2022-05-07 20:55:22* Test Item Value Reference Range Interpretation Comme nts LIPASE (test code = 4056322277) 96 U/L 0-220 Lab Interpretation (test cod e = 92120-1) Normal [facility] BudaPOCT [id number] 20:46:00* Test Item Value Reference Range Interpretation Comme nts POCT PREG (test code = 1605) negative On board controls acceptable with C Line (test code = 3574) present POCT PREG LOT # (test code = 3575) [id number] POCT PREG TEST DATE ( test code = 3576) 04/18/2023 Lab Interpretation (test cod e = 01207-7) Normal [facility] BudaCBC WITH [id number] 20:40:38* Test Item Value Reference Range Interpretation [...] 31.8 g/dL 31.6-35.1 RDW-SD (test code = 78133-5) 53.7 fL 39.0-49.9 H RDW-CV (test code = 788-0) 17.2 % 12.0-15.5 H PLT (test code = 777-3) See_Comment H [Automated messa ge] The system which generated this result transmitted reference range: 166 - 358 10*3/?L. The reference range was not used to interpret this result as normal/abnormal. MPV (test code = 87695-3) 8.5 fL 9.5-12.9 L NRBC/100 WBC (test code = 6263611879) See_Comment [Automated me ssage] The system which generated this result transmitted reference range: 0.0 - 10.0 /100 WBCs. The reference range was not used to interpret this result as normal/abnormal. NRBC x10^3 (test code = 7830087027) <0.01 See_Comment [Automated messa ge] The system which generated this result transmitted reference range: 10*3/?L. The reference range was not used to interpret this result as normal/abnormal. GRAN MAT (NEUT) % (test code = 770-8) 53.7 % IMM GRAN % (test code = 8877951237) 0.90 % LYMPH % (test code = 736-9) 32.6 % MONO % (test code = 5905-5) 10.1 % EOS % (test code = 713-8) 1.5 % BASO % (test code = 706-2) 1.2 % GRAN MAT x10^3(ANC) (test code = 5979421422) 4.98 10*3/uL 1.88-7.09 IMM GRAN x10^3 (test code = 7965272437) 0.08 10*3/uL 0.00-0.06 H LYMPH x10^3 (test code = 731-0) 3.02 10*3/uL 1.32-3.29 MONO x10^3 (test code = 742-7) 0.94 10*3/uL 0.33-0.92 H EOS x10^3 (test code = 711-2) 0.14 10*3/uL 0.03-0.39 BASO x10^3 (test code = 704-7) 0.11 10*3/uL 0.01-0.07 H Lab Interpretation (test code = 23085-1) Abnormal [facility] GLUCOSE (AUTOMATED)2021-11-23 20:17:33* Test Item Value Reference Range Interpretation Comme nts POCT GLU (test code = 1035820754) 111 mg/dL 70-110 H Notified Provide r Lab Interpretation (test code = 62425-6) Abnormal [facility]udaPAP TEST, THINPREP, [id number] 00:00:00 * Test Item Value Reference Range Interpretation Comme nts SOURCE: (test code = 8001) Endocervical SLIDES: (test code = 8011) 1 LMP: (test code = 8021) 06/03/2021 SPECIMEN ADEQUACY: (test code = 97195) (NOTE) INTERPRETATION: (test code = 61214) ASCUS/EPITH. ABNORMALITY; SEE BELOW WELDER REPAIR: (test code = 8101) CHANA Thacker(ASCP)[facility] INTERPRETATION BY: (test code = 8122) Naihd Russell M.D. LOCATION: (test code = [facility]) (NOTE) CPT: (test code = 8140) (NOTE) PAP TEST, THINPREP, [id number] 00:00:00* Test Item Value Reference Range Interpretation Comme nts SOURCE: (test code = 8001) Endocervical SLIDES: (test code = 8011) 1 LMP: (test code = 8021) 06/03/2021 SPECIMEN ADEQUACY: (test code = 71487) (NOTE) INTERPRETATION: (test code = 76655) ASCUS/EPITH. ABNORMALITY; SEE BELOW WELDER REPAIR: (test code = 8101) CHANA Thacker(ASCP)[facility] PATHOLOGIST INTERPRETATION BY: (test code = 8122) Nahid Russell M.D. LOCATION: (test code = [facility]) (NOTE) CPT: (test code = 8140) (NOTE) PAP TEST, THINPREP, [id number] 00:00:00* Test Item Value Reference Range Interpretation Comme nts SOURCE: (test code = 8001) Endocervical SLIDES: (test code = 8011) 1 LMP: (test code = 8021) 06/03/2021 SPECIMEN ADEQUACY: (test code = 49005) (NOTE) INTERPRETATION: (test code = 40632) ASCUS/EPITH. ABNORMALITY; SEE BELOW WELDER REPAIR: (test code = 8101) CHANA Thacker(ASCP)[facility] INTERPRETATION BY: (test code = 8122) Nahid Russell M.D. LOCATION: (test code = 56690) (NOTE) CPT: (test code = 8140) (NOTE) PAP TEST, THINPREP, [id number] 00:00:00* Test Item Value Reference Range Interpretation Comme nts SOURCE: (test code = 8001) Endocervical SLIDES: (test code = 8011) 1 LMP: (test code = 8021) 06/03/2021 SPECIMEN ADEQUACY: (test code = 00982) (NOTE) INTERPRETATION: (test code = 66183) ASCUS/EPITH. ABNORMALITY; SEE BELOW WELDER REPAIR: (test code = 8101) CHANA Thacker(ASCP)[facility] PATHOLOGIST INTERPRETATION BY: (test code = 8122) Nahid Russell M.D. LOCATION: (test code = 49164) (NOTE) CPT: (test code = 8140) (NOTE) HPV HIGH RISK WITH GENOTYPE, [id number] 00:00:00* Test Item Value Reference Range Interpretation Comme nts HPV HIGH RISK INTERP (test c ode = 15107) POSITIVE HPV 16 (test code = 11591) POSITIVE HPV 18 (test code = 52970) NEGATIVE HPV, HR, OTHER GENOTYPES (te st code = 17971) POSITIVE HPV HIGH RISK WITH GENOTYPE, [id number] 00:00:00* Test Item Value Reference Range Interpretation Comme nts HPV HIGH RISK INTERP (test c ode = 60018) POSITIVE HPV 16 (test code = 46786) POSITIVE HPV 18 (test code = 97275) NEGATIVE HPV, HR, OTHER GENOTYPES (te st code = 33846) POSITIVE HPV HIGH RISK WITH GENOTYPE, [id number] 00:00:00* Test Item Value Reference Range Interpretation Comme nts HPV HIGH RISK INTERP (test c ode = 86965) POSITIVE HPV 16 (test code = 45534) POSITIVE HPV 18 (test code = 72271) NEGATIVE HPV, HR, OTHER GENOTYPES (te st code = 61526) POSITIVE HPV HIGH RISK WITH GENOTYPE, [id number] 00:00:00* Test Item Value Reference Range Interpretation Comme nts HPV HIGH RISK INTERP (test c ode = 77351) POSITIVE HPV 16 (test code = 38094) POSITIVE HPV 18 (test code = 45588) NEGATIVE HPV, HR, OTHER GENOTYPES (te st code = 29858) POSITIVE [id number] 03:22:48* Test Item Value Reference Range Interpretation Comme nts APPEARANCE (test code = 0334715487) Hazy Clear A COLOR (test code = 3088959037) Yellow Yellow PH (test code = 5386790395) 4.8-8.0 SP GRAVITY (test code = 3374119759) 1.003-1.030 GLU U QUAL (test code = 8777281197) Normal Normal BLOOD (test code = 3972275927) Negative Negative Interference fro m ascorbic acid may cause false negative results. KETONES (test code = 8631869542) 5 mg/dL Negative A PROTEIN (test code = 2887-8) Negative Negative UROBILIN (test code = 4447972618) 4.0 mg/dL Normal A BILIRUBIN (test code = 7368246270) Negative Negative NITRITE (test code = 1233746443) Negative Negative LEUK GRUPO (test code = 3605016623) Negative Negative RBC/HPF (test code = 5065651907) See_Comment [Automated [employer]] The system which generated this result transmitted reference range: 0 - 3 HPF. The reference range was not used to interpret this result as normal/abnormal. WBC/HPF (test code = 5512713612) <1 See_Comment [Automated [employer]] The system which generated this result transmitted reference range: 0 - 5 HPF. The reference range was not used to interpret this result as normal/abnormal. BACTERIA (test code = 9473682042) Few Negative A SQ EPITH (test code = 4635806383) HPF Lab Interpretation (test code = 42376-9) [facility]normal [facility]udaURINALYSIS2021-08-29 03:22:48* Test Item Value Reference Range Interpretation Comme nts APPEARANCE (test code = 5510959584) Hazy Clear A COLOR (test code = 2777846913) Yellow Yellow PH (test code = 9995557964) 4.8-8.0 SP GRAVITY (test code = 5945791741) 1.003-1.030 GLU U QUAL (test code = 4333531863) Normal Normal BLOOD (test code = 8390530073) Negative Negative KETONES (test code = 0064276634) 5 mg/dL Negative A PROTEIN (test code = 2887-8) Negative Negative UROBILIN (test code = 2710817331) 4.0 mg/dL Normal A BILIRUBIN (test code = 3670820035) Negative Negative NITRITE (test code = 4207750008) Negative Negative LEUK GRUPO (test code = 2756715490) Negative Negative RBC/HPF (test code = 9203230446) See_Comment [Automated [employer]] The system which generated this result transmitted reference range: 0 - 3 HPF. The reference range was not used to interpret this result as normal/abnormal. WBC/HPF (test code = 7555185227) <1 See_Comment [Automated [employer]] The system which generated this result transmitted reference range: 0 - 5 HPF. The reference range was not used to interpret this result as normal/abnormal. BACTERIA (test code = 0377122263) Few Negative A SQ EPITH (test code = 7687516874) HPF Lab Interpretation (test code = 55938-5) Abnormal [facility] [id number] 02:45:00* Test Item Value Reference Range Interpretation Comments TROPONIN I (test code = 0520161968) 0.002 ng/mL See_Comment [Automated message] The system [...] of biotin. Lab Interpretation (test code = 17364-7) Normal [facility] [id number] 02:45:00* Test Item Value Reference Range Interpretation Comme nts TROPONIN I (test code = 1086300721) 0.002 ng/mL See_Comment [Automated [employer]] The system which generated this result transmitted reference range: <=0.034. The reference range was not used to interpret this result as normal/abnormal. LYNDSAY (test code = LYNDSAY) Lab Interpretation (test code = 27174-6) Normal [facility]udaN-TERMINAL [id number]-[id number] 02:41:57* Test Item Value Reference Range Interpretation Comme nts NT-proBNP (test code = 5287044496) 169 pg/mL See_Comment H [Automated message] The system which generated this result transmitted reference range: <=125. The reference range was not used to interpret this result as normal/abnormal. LYNDSAY (test code = LYNDSAY) Biotin has been reported to cause a negative bias, interpret results relative to patient's use of biotin. Lab Interpretation (test code = 09589-3) [facility]normal [facility]udaN-TERMINAL [id number] 02:41:57* Test Item Value Reference Range Interpretation Comme nts NT-proBNP (test code = 2330238903) 169 pg/mL See_Comment H [Automated [employer]] The system which generated this result transmitted reference range: <=125. The reference range was not used to interpret this result as normal/abnormal. LYNDSAY (test code = LYNDSAY) Lab Interpretation (test code = 84631-5) Abnormal [facility]. METABOLIC PANEL (24314)2021-03-17 02:09:13* Test Item Value Reference Range Interpretation Comme nts NA (test code = 9629212280) 137 mmol/L 135-145 K (test code = 8620946117) 4.2 mmol/L 3.5-5.0 CL (test code = 6609985146) 102 mmol/L 98-108 CO2 TOTAL (test code = 9068437475) 25 mmol/L 23-31 AGAP (test code = 9056165768) 2-16 BUN (test code = 9695834862) 18 mg/dL 7-23 GLUCOSE (test code = 5666164038) 144 mg/dL 70-110 H CREATININE (test code = 3435654787) 0.77 mg/dL 0.50-1.04 TOTAL BILI (test code = 6577527517) 0.4 mg/dL 0.1-1.1 CALCIUM (test code = 1746298568) 8.9 mg/dL 8.6-10.6 T PROTEIN (test code = 3762625561) 6.8 g/dL 6.3-8.2 ALBUMIN (test code = 2575877734) 3.9 g/dL 3.5-5.0 ALK PHOS (test code = 0987684466) 84 U/L 34-122 ALTv (test code = 1742-6) 13 U/L 5-35 AST(SGOT) (test code = 9308273281) 17 U/L 13-40 eGFR (test code = 5216836686) mL/min/1.73m2 LYNDSAY (test code = LYNDSAY) Association [...] imaging tests). Lab Interpretation (test code = 86816-3) Abnormal [facility]. METABOLIC PANEL (44029)2021-03-17 02:09:13* Test Item Value Reference Range Interpretation Comme nts NA (test code = 4589298677) 137 mmol/L 135-145 K (test code = 8891831375) 4.2 mmol/L 3.5-5.0 CL (test code = 1462902358) 102 mmol/L 98-108 CO2 TOTAL (test code = 7502936711) 25 mmol/L 23-31 AGAP (test code = 5582755466) 2-16 BUN (test code = 8269189201) 18 mg/dL 7-23 GLUCOSE (test code = 1236139163) 144 mg/dL 70-110 H CREATININE (test code = 2274697525) 0.77 mg/dL 0.50-1.04 TOTAL BILI (test code = 7050469478) 0.4 mg/dL 0.1-1.1 CALCIUM (test code = 6221766307) 8.9 mg/dL 8.6-10.6 T PROTEIN (test code = 1758846704) 6.8 g/dL 6.3-8.2 ALBUMIN (test code = 5172663422) 3.9 g/dL 3.5-5.0 ALK PHOS (test code = 3090326339) 84 U/L 34-122 ALTv (test code = 1742-6) 13 U/L 5-35 AST(SGOT) (test code = 1329074228) 17 U/L 13-40 eGFR (test code = 9076737522) mL/min/1.73m2 LYNDSAY (test code = LYNDSAY) Lab Interpretation (test cod e = 64401-0) Abnormal [facility] WITH [id number] 01:56:33* Test Item Value Reference Range Interpretation [...] g/dL 31.6-35.1 L RDW-SD (test code = 35282-8) 55.5 fL 39.0-49.9 H RDW-CV (test code = 788-0) 18.9 % 12.0-15.5 H PLT (test code = 777-3) See_Comment H [Automated messa ge] The system which generated this result transmitted reference range: 166 - 358 10*3/?L. The reference range was not used to interpret this result as normal/abnormal. MPV (test code = 46358-3) 8.2 fL 9.5-12.9 L NRBC/100 WBC (test code = 9586926266) See_Comment [Automated bubl ssage] The system which generated this result transmitted reference range: 0.0 - 10.0 /100 WBCs. The reference range was not used to interpret this result as normal/abnormal. NRBC x10^3 (test code = 1029847417) <0.01 See_Comment [Automated messa ge] The system which generated this result transmitted reference range: 10*3/?L. The reference range was not used to interpret this result as normal/abnormal. GRAN MAT (NEUT) % (test code = 770-8) 61.7 % IMM GRAN % (test code = 9857878790) 0.80 % LYMPH % (test code = 736-9) 28.5 % MONO % (test code = 5905-5) 6.3 % EOS % (test code = 713-8) 1.8 % BASO % (test code = 706-2) 0.9 % GRAN MAT x10^3(ANC) (test code = 1185611699) 7.31 10*3/uL 1.88-7.09 H IMM GRAN x10^3 (test code = 1877505865) 0.09 10*3/uL 0.00-0.06 H LYMPH x10^3 (test code = 731-0) 3.38 10*3/uL 1.32-3.29 H MONO x10^3 (test code = 742-7) 0.75 10*3/uL 0.33-0.92 EOS x10^3 (test code = 711-2) 0.21 10*3/uL 0.03-0.39 BASO x10^3 (test code = 704-7) 0.11 10*3/uL 0.01-0.07 H Lab Interpretation (test code = 79734-0) Abnormal [facility] WITH [id number] 01:56:33* Test Item Value Reference Range Interpretation [...] g/dL 31.6-35.1 L RDW-SD (test code = 73061-8) 55.5 fL 39.0-49.9 H RDW-CV (test code = 788-0) 18.9 % 12.0-15.5 H PLT (test code = 777-3) See_Comment H [Automated messa ge] The system which generated this result transmitted reference range: 166 - 358 10*3/?L. The reference range was not used to interpret this result as normal/abnormal. MPV (test code = 19104-1) 8.2 fL 9.5-12.9 L NRBC/100 WBC (test code = 4868096409) See_Comment [Automated me ssage] The system which generated this result transmitted reference range: 0.0 - 10.0 /100 WBCs. The reference range was not used to interpret this result as normal/abnormal. NRBC x10^3 (test code = 0865711173) <0.01 See_Comment [Automated messa ge] The system which generated this result transmitted reference range: 10*3/?L. The reference range was not used to interpret this result as normal/abnormal. GRAN MAT (NEUT) % (test code = 770-8) 61.7 % IMM GRAN % (test code = 1361325570) 0.80 % LYMPH % (test code = 736-9) 28.5 % MONO % (test code = 5905-5) 6.3 % EOS % (test code = 713-8) 1.8 % BASO % (test code = 706-2) 0.9 % GRAN MAT x10^3(ANC) (test code = 8965733552) 7.31 10*3/uL 1.88-7.09 H IMM GRAN x10^3 (test code = 2125123846) 0.09 10*3/uL 0.00-0.06 H LYMPH x10^3 (test code = 731-0) 3.38 10*3/uL 1.32-3.29 H MONO x10^3 (test code = 742-7) 0.75 10*3/uL 0.33-0.92 EOS x10^3 (test code = 711-2) 0.21 10*3/uL 0.03-0.39 BASO x10^3 (test code = 704-7) 0.11 10*3/uL 0.01-0.07 H Lab Interpretation (test code = 83197-2) [facility]ID NOW RAPID TESTING)2021-03-17 01:38:12* Test Item Value Reference Range Interpretation Comme nts SARS-CoV-2 Rapid ID NOW (test code = 91268-0) Not Detected Not Detected LYNDSAY (test code = LYNDSAY) ID NOW COVID-19 As say is an isothermal nucleic acid amplification test intended for the qualitative detection of nucleic acid from SARS-CoV-2 viral RNA in nasopharyngeal (BOXCAR WEIGHER) specimens. It is used under Emergency Use [...] clinically indicated. Lab Interpretation (test code = 80143-9) [place] [id number] (ID NOW RAPID TESTING)2021-03-17 01:38:12* Test Item Value Reference Range Interpretation Comme nts SARS-CoV-2 Rapid ID NOW (raisa t code = 10638-4) Not Detected Not Detected LYNDSAY (test code = LYNDSAY) Lab Interpretation (test cod e = 98972-3) [place] [id number] (ID NOW RAPID TESTING)2021-02-19 17:42:45* Test Item Value Reference Range Interpretation Comme nts SARS-CoV-2 Rapid ID NOW (test code = 15550-2) Not Detected Not Detected LYNDSAY (test code = LYNDSAY) ID NOW COVID-19 As say is an isothermal nucleic acid amplification test intended for the qualitative detection of nucleic acid from SARS-CoV-2 viral RNA in nasopharyngeal (BOXCAR WEIGHER) specimens. It is used under Emergency Use Authorization (EUA) by [facility]. The limit of detection (LOD) [...] clinically indicated. Lab Interpretation (test code = 85560-8) [facility] ABDOMEN PELVIS W VYILJOUR1269-44-42 17:24:55Thickening of the gastric antrum and duodenal [...] Electronicallysigned by James Freeman at 02/19/2021 12:24 PMB[facility] BudaUrinalysis2021-08-03 17:03:40* Test Item Value Reference Range Interpretation Comme nts APPEARANCE (test code = 8816344128) Hazy Clear A COLOR (test code = 1013246715) Mabel Yellow A PH (test code = 7620897482) 4.8-8.0 SP GRAVITY (test code = 2317805655) 1.003-1.030 H GLU U QUAL (test code = 3963311318) Normal Normal BLOOD (test code = 4390747717) Negative Negative KETONES (test code = 1327565534) 5 mg/dL Negative A PROTEIN (test code = 2887-8) 30 mg/dL Negative A UROBILIN (test code = 8080694986) 4.0 mg/dL Normal A BILIRUBIN (test code = 5805438142) 4 mg/dL Negative A NITRITE (test code = 4362959142) Negative Negative LEUK GRUPO (test code = 3779956430) Negative Negative RBC/HPF (test code = 0957009288) See_Comment H [Automated messa ge] The system which generated this result transmitted reference range: 0 - 3 HPF. The reference range was not used to interpret this result as normal/abnormal. WBC/HPF (test code = 3550347660) See_Comment H [Automated messa ge] The system which generated this result transmitted reference range: 0 - 5 HPF. The reference range was not used to interpret this result as normal/abnormal. BACTERIA (test code = 6238830670) Few Negative A MUCOUS (test code = 3374407809) Moderate Negative LPF A SQ EPITH (test code = 9829002277) HPF CA OXALATE (test code = 3915426057) See_Comment H [Automated messa ge] The system which generated this result transmitted reference range: <=1 HPF. The reference range was not used to interpret this result as normal/abnormal. Ictotest (test code = 8578174230) Negative Lab Interpretation (test code = 00040-3) Abnormal [facility] BudaComplete Metabolic Utufx5672-57-17 16:34:55* Test Item Value Reference Range Interpretation Comme nts NA (test code = 4671237941) 139 mmol/L 135-145 K (test code = 0270368063) 4.3 mmol/L 3.5-5.0 CL (test code = 2542950665) 105 mmol/L 98-108 CO2 TOTAL (test code = 3919721966) 26 mmol/L 23-31 AGAP (test code = 8204920315) 2-16 BUN (test code = 4303804521) 11 mg/dL 7-23 GLUCOSE (test code = 3980639822) 95 mg/dL 70-110 CREATININE (test code = 2085748606) 0.70 mg/dL 0.50-1.04 TOTAL BILI (test code = 8044040136) 0.6 mg/dL 0.1-1.1 CALCIUM (test code = 6484636451) 8.9 mg/dL 8.6-10.6 T PROTEIN (test code = 5966700612) 7.7 g/dL 6.3-8.2 ALBUMIN (test code = 4124422286) 4.1 g/dL 3.5-5.0 ALK PHOS (test code = 3009971382) 79 U/L 34-122 ALTv (test code = 1742-6) 10 U/L 5-35 AST(SGOT) (test code = 4037892443) 22 U/L 13-40 eGFR (test code = 9430213284) mL/min/1.73m2 LYNDSAY (test code = LYNDSAY) Association [...] [facility] BudaLipase, Vasub0924-09-94 16:34:14* Test Item Value Reference Range Interpretation Comme nts LIPASE (test code = 3443836332) 45 U/L 0-220 Lab Interpretation (test cod e = 51057-6) Normal [facility] with Byxpoqiqpisq8093-55-48 16:21:12* Test Item Value Reference Range Interpretation [...] g/dL 31.6-35.1 L RDW-SD (test code = 75904-7) 54.4 fL 39.0-49.9 H RDW-CV (test code = 788-0) 18.3 % 12.0-15.5 H PLT (test code = 777-3) See_Comment H [Automated messa ge] The system which generated this result transmitted reference range: 166 - 358 10*3/?L. The reference range was not used to interpret this result as normal/abnormal. MPV (test code = 67475-9) 8.5 fL 9.5-12.9 L NRBC/100 WBC (test code = 4302602802) See_Comment [Automated bubl ssage] The system which generated this result transmitted reference range: 0.0 - 10.0 /100 WBCs. The reference range was not used to interpret this result as normal/abnormal. NRBC x10^3 (test code = 4247291757) <0.01 See_Comment [Automated messa ge] The system which generated this result transmitted reference range: 10*3/?L. The reference range was not used to interpret this result as normal/abnormal. GRAN MAT (NEUT) % (test code = 770-8) 78.3 % IMM GRAN % (test code = 5408721410) 0.40 % LYMPH % (test code = 736-9) 15.4 % MONO % (test code = 5905-5) 4.8 % EOS % (test code = 713-8) 0.1 % BASO % (test code = 706-2) 1.0 % GRAN MAT x10^3(ANC) (test code = 4620144029) 7.15 10*3/uL 1.88-7.09 H IMM GRAN x10^3 (test code = 1897828122) 0.04 10*3/uL 0.00-0.06 LYMPH x10^3 (test code = 731-0) 1.41 10*3/uL 1.32-3.29 MONO x10^3 (test code = 742-7) 0.44 10*3/uL 0.33-0.92 EOS x10^3 (test code = 711-2) <0.03 0.03-0.39 L BASO x10^3 (test code = 704-7) 0.09 10*3/uL 0.01-0.07 H Lab Interpretation (test code = 50938-3) Abnormal [facility] Notes Date/Time Note Provider Source 2023-09-11 11:34:02 RtI6B4wYUjMBSgnpBAMHCKNjzUCciaI/d0RsA3 HycnxBGHxvg/BNqYwmtxs4OF4a4659-44-22U8 1:34:02 Chief ComplaintPatient presents withFollow-up HospitalizationPaBETO HarperN 05623-4Sozpr OjnpTG4004-42-43H79:34:35Nurse NoteTXT1.2.840.578985.1.13.131.2.7.2.7 03485|[id number] for patient obrd78718-5Avojg NoteLNNARRATIVEFormatted C-CDA narrative textNATALIASURGICAL HOSPITAL OF OKLAHOMA – OKLAHOMA CITYEPSheltering Arms Hospital[address] Hospitalvd.GIQIWAOLAUSFXIWSKR7565064828UXBL9 249-16-99E59:34:351.2.840.481420.1.72. 3.15|1.2.840.215293.1.13.131.2.7.2.727 [id number] [facility] 2023-08-12 16:08:34 TsQDnxFgivCRa90M0yqPcpNk/UtmzNl8h+T3SV vTeqnhEcMUEeu5jMIhM5FIBtaw8428-86-92D1 6:08:34 Bryan spoke to patient and patient decided to leave AMA.AMA form signed by patient and attached to paperwork.Patient in stable condition with AMA. IV line removed and patient was assisted onto wheelchair [facility] called her prior to leaving room and will be picking up patient. 52644-3Vlxnuqfjl department GiioFQ1127-62-85D31:09:43Emergency department NoteTXT1.2.840.270464.1.13.104.2.7.2.7 49399|[id number] for patient nmfd03897-2ZmbtNZDTYNHUWDZVojmecsjq C-CDA narrative oitn849232091Letgwctw [place] RNUTMB52 [address] StreetJqt[id number] JMWZZUURYVMFEDAUCVIJ2648-96-59I89:09:4 31.2.840.450456.1.72.3.15|1.2.840.1143 50.1.13.104.2.7.2.727879_[id number] Steph Dumont RN [facility] 2023-08-12 15:56:21 +/KfJtCxFuP238/caZfwDPzuC9M2pWTMzPaUGl Q0HkegwdkPpXiGukszEssEVQiS8486-76-75T1 5:56:21 Patient requesting to talk to provider - provider aware.Patient refused tylenol as she said medication does not improve her condition and she does not want to throw it up.Patient also refusing blood draw at this time. 28548-2Imlbljqdv department DbzfTS2818-91-96Q47:57:14[facility] department NoteTXT1.2.840.698153.1.13.104.2.7.2.7 92780|[id number] for patient jeyn01278-9VgtrVMQBFSTLZOXWvvaoprhg C-CDA narrative [address][id number] LFHTGVPKEJKRBLZZROHU8572-56-62H70:57:1 41.2.840.774134.1.72.3.15|1.2.840.1143 50.1.13.104.2.7.2.727879_[id number] [facility] 2023-08-12 14:50:00 ar8PxQQY2syEeKhfZyJj0DOXoGzAGn7v7L/mPV jp1QaiE2LBGf3hN4nC0LK0Wwii3574-57-79P6 4:50:00 Patient's name and verified with patient.No [...] [place] [address]-9Dawcakfgo department MovdBB2733-47-87C02:29:07[facility] NoteTXT1.2.840.535816.1.13.104.2.7.2.7 45543|[id number] for patient poxu53029-9NwrgGDYPARPKKNTSiljmcbth C-CDA narrative text[address] Xs[id number] KCQQMWTURTOHUPDRZVAA2004-07-02O22:29:0 71.2.840.182781.1.72.3.15|1.2.840.1143 50.1.13.104.2.7.2.727879_[id number] [facility] 2023-08-12 14:17:22 oi6JUSt1yS1mB9Me9II99DLhTGmj++2upq5so8 tLU5OezW+qdADnsigAdFAsMbpq2444-43-01X8 4:17:22 Patient had witnessed seizure like activity.Bryan, DO at bedside.Patient stopped seizure activity and had no postictal phase.Patient coherent, alert and oriented/answering all questions appropriately. 65748-8Ahvzadhzc department YkkyDQ2317-05-60S80:18:15[facility] department NoteTXT1.2.840.351595.1.13.104.2.7.2.7 05225|[id number] for patient xyzq74989-7RhacDASMYUIPLRAVnvdwviyq C-CDA narrative textUT35 Harris [id number] OLCHUWXMWFIMQKDALXVT5534-74-65O09:18:1 51.2.840.646703.1.72.3.15|1.2.840.1143 50.1.13.104.2.7.2.727879_[id number] [facility] 2023-08-12 13:45:33 TpSNf2Bl0lHDFlppMyu4TbZ33Ho7mHw/HjgJpP W+B+rv9uBG6v8nZk/LJc9BBBY00033-12-41C8 3:45:33 Patient here for chest pain that started approximately 1 hour ago. Patient had seizure like activity in the vehicle while attempting to get patient out of the car, patient had no post ictal phase. Patient c/o substernal chest pain and jaw pain. 49916-6Scubasxhr department Triage pggbFB6986-45-04I63:46:59[facility] department Triage noteTXT1.2.840.693696.1.13.104.2.7.2.7 35410|[id number] for patient bsmu61888-6Hztjqbsxz department NoteLNNARRATIVEFormatted C-CDA narrative [id number] S Cryer RNUT35 Harris [id number] ERXZRDRIOFEFBTWRIUTN3734-04-59L26:46:5 91.2.840.424446.1.72.3.15|1.2.840.1143 50.1.13.104.2.7.2.727879_[id number] Jasvir Reaves RN [facility] 2023-08-12 13:42:00 LhLkXcBjAJNB3+avrS/2njjEeirBsASJ15Dm/c +2Rw+/C1WK10M6s3s2lbegFSsU1372-01-50I3 3:42:00 [facility] Emergency Department NotePatient Name: Heather TurnerDate of : 1970 53 year old femaleTreatment Room: OH3/MF8Blfvfzp Record Number: [id number] Care Physician: PATIENT DOES NOT HAVE A PCPPatient Escorted by: Family [5]Mode of Arrival: Personal means [1]EMS Treatment Prior to ED Arrival:MAINTENANCE SUPERINTENDENT treatment: NoneTravel and Exposure Screening:SymptomsDoes patient have [...] received in last 5 years: NoChildhood immunizations: Zk-uo-plilNjuwsxgth:AllergiesAllergen ReactionsGreen Tea Other - See commentsSeizuresDiclofenac HypertensionKeppra [...] Right 08/14/2015Surgeon: Luis Jones Jr., DPM; [facility]:Review of SystemsPhysical Exam:ED Triage Vitals [...] (*) 0.01 - 0.07 10*3/uLCOMP. METABOLIC PANEL (12691) - AbnormalNA 140 135 - 145 mmol/LK [...] U/LAST(SGOT) 21 13 - 40 U/LeGFR 107.1 mL/min/1.08q5BPQTHY ACID WHOLE BLOOD - NormalLACTIC ACID 1.56 0.50 - 2.20 mmol/LURINALYSISTROPONIN IEKG:If EKG completed, see Procedure Note.Orders and Treatments:Orders Placed This EncounterProceduresCbc with DiffComp. Metabolic Panel (35887)UrinalysisLactic Acid Whole BloodTroponin IOrders Placed This EncounterMedicationslacosamide (VIMPAT) 100 mg in NaCl 0.9% (NS) 50 mL piggybackacetaminophen (TYLENOL) tablet 1,000 mgFirst Provider Eval:ED EventsDate/Time Event User Vjwjofqg17/24/24 1345 Medical Screening Begins BRIAN BRYAN --08/12/23 1345 First Provider Evaluation BRIAN BRYAN --ED COURSEED Course as of 08/12/23 1605Wed Aug 12 Lactic normal. Patient requesting to leave prior to treatment complete. Discussed risks of leaving. [PS]ED Course User Index[PS] Brian Byran DODiagnosis/Impression as of 08/12/23 1605SeizureChest pain, unspecified typeProcedures:ProceduresMDM:Medical Decision MakingStepjose luishiginio Turner is a 53 year old female [...] on fileFollow-up:Contact information for follow-Yehuda Segovia MDSpecialty: -[facility] AND [address] [address]Qkleb: [phone]-Emergency DepartmentSpecialty: Emergency Iamwtrmy[address] [place] [address]Xfbss: [phone]: If symptoms worsen as documented in the dischargeElectronically signed by:Brian Bryan DO08/12/23 1605Brian Bryan DO08/12/23 1605 20215-9Fynufsmih Emergency department NbjoZB8045-14-82M69:05:59Physician Emergency department NoteTXT1.2.840.011291.1.13.104.2.7.2.7 38786|[id number] for patient sumr69213-4Jwcxjwkqy department NoteLNNARRATIVEFormatted C-CDA narrative textKECK HOSPITAL OF USC - 84 Mitchell [id number] YQPHHTGDKWDYNDUYAFAH5351-01-12Q64:05:5 91.2.840.196868.1.72.3.15|1.2.840.1143 50.1.13.104.2.7.2.727879_[id number] [facility]
[2023-09-23 12:19] LABS: Basophils % 0.5 % (0-1.3); Eosinophils % 0.2 % (0-4.4); Hematocrit 28.2 % (36.0-45.0); Hemoglobin 9.4 g/dL (12.0-15.0); Lymphocytes % 21.4 % (15.3-44.8); MCV 81.1 fL (80-100); MPV 6.8 fL (7.6-11.3); Platelets 390 thou/uL (152-406); RBC Red Blood Cell Count 3.48 M/uL (3.86-4.86)
[2023-09-23 12:26] LABS: Protime INR 1.3
--- NOTE | 2023-09-23 12:40 | RAD REPORT ---
EXAM DESCRIPTION: CT - Abdomen Pelvis W Contrast - 09/23/2023 12:10 pm CLINICAL HISTORY: back pain. Chronic pain. Recent fall COMPARISON: Abdomen Pelvis W Contrast dated 08/06/2023; Abdomen Pelvis W Contrast dated 07/31/2023 ; Abdomen Pelvis W Contrast dated 05/01/2023; Abdomen Pelvis W Contrast dated 02/04/2023; Head C S pine Cap Wo Con dated 09/18/2023 TECHNIQUE: Thin cut axial CT imaging of the abdomen and pelvis was performed following intravenous a dministration of 100 mL Isovue 300. Multiplanar reformats were generated and reviewed. All CT scans are performed using dose optimization technique as appropriate and may include automated exposure control or mA/KV adjustment according to patient size. FINDINGS: No suspicious findings in the lung bases. The liver, spleen, and pancreas show no suspicious findings. Stable left adrenal 3 mm hypodense nodul e. Gallbladder was surgically removed. Symmetric renal function is seen with no hydronephrosis or suspicious renal mass. No dilated bowel loops or bowel wall thickening. Mild perihepatic and pelvic ascites, new since the p rior exam. No free air, fluid collections, or inflammatory stranding. No hernia, mass or bulky lympha denopathy. Fibroid uterus. The urinary bladder is without significant finding. No suspicious bony findings. Sequelae of posterior decompression at L3-4 again seen. IMPRESSION: New mild perihepatic and pelvic ascites. Other stable findings as above.
[2023-09-23 12:41] LABS: Albumin 3.3 g/dL (3.4-5.0); Albumin/Globulin Ratio 0.9 (1.1-1.8); Anion Gap 9.9 mEq/L (5.0-15.0); Bilirubin Direct 0.2 mg/dL (0-0.2); Bilirubin Indirect, Calculated 0.2 mg/dL (0.2-0.8); Bilirubin Total 0.4 mg/dL (0.2-1.0); Globulin 3.5 g/dL (2.3-3.5); Potassium 3.9 mEq/L (3.5-5.1); Protein, Total 6.8 g/dL (6.4-8.2)
--- NOTE | 2023-09-23 13:21 | RAD REPORT ---
EXAM DESCRIPTION: MRI - Spine Lumbar W/Wo Cont - 09/23/2023 12:58 pm CLINICAL HISTORY: Bladder and bowel incontinence. Back pain COMPARISON: September 01, 2023 TECHNIQUE: Sagittal T1, T2 and STIR weighted sequences were obtained. Axial T1 and T2 sequences were obtained through the lumbar disc levels. 18 cc MultiHance administered intravenously FINDINGS: L1-2 unremarkable Mild spondylosis L2-3 Postsurgical changes L3-4 and L4-5 Disc bulge with small posterior disc herniation L4-5. No significant enhancement to suggest fibrosis. . Mild to moderate narrowing of the lateral aspects of the thecal sac bilaterally. Narrowing of the lateral recesses bilaterally. Facet and ligamentum flavum hypertrophy. Mild to moderate narrowing of the neural foramina bilaterally Disc bulge with small central disc herniation L4-5. No significant enhancement to suggest fibrosis. F acet hypertrophy. Mild narrowing of the thecal sac. Mild narrowing of the neural foramina bilaterally Mild spondylosis L5-S1 2.8 x 1.2 x 1.4 centimeter fluid collection abuts the posterior aspect of the thecal sac L3-4 extendi ng inferiorly to the inferior aspect of L4. It is at the site of prior surgery. The fluid collection does not enhance. There is enhancement surrounding the fluid collection extending into the posterior subcutaneous tissues and musculature. No significant abnormal signal within the bones IMPRESSION: 2.8 centimeter fluid collection abuts the posterior aspect of the thecal sac L3-4 extend ing inferiorly. This is without significant change in appearance from the August 2023 exam. This ma y represent a a pseudomeningocele. Other considerations include a subacute hematoma and abscess .
--- NOTE | 2023-09-23 14:23 | EDPHYS ---
Physician Documentation [facility] Name: Heather Coon Age: 53 yrs Sex: Female : 1970 Arrival Date: 09/23/2023 Time: 09:56 Bed 17 Private MD: ED Physician Jones Parham HPI: 09/22 11:32 This 53 yrs old Female presents to ER via EMS with complaints of Pain. rn 11:32 The patient presents with pain that is chronic. The symptoms are located in the low rn back. Onset: The symptoms/episode began/occurred at an unknown time. The pain radiates to the right leg and left leg. Modifying factors: The patient symptoms are alleviated by nothing, the patient symptoms are aggravated by any movement. Severity of symptoms: At their worst the symptoms were moderate, in the emergency department the symptoms are unchanged. The patient has experienced similar episodes in the past. Patient recently admitted and discharged from the hospital for subacute fall. Denies any acute injuries found at that time. Patient just discharged yesterday and returns for continued pain. Pain not controlled and states pain did not go away while in hospital either. Patient reports single episode of bowel and bladder accident but is currently denying any incontinence. No new fall or trauma. Patient reports pain all over. Denies fever. No IV drug use.. 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 - Social history:: Smoking status: Patient reports the use of cigarette tobacco products, unknown amount. - Family history:: not pertinent. - Hospitalizations: : No recent hospitalization is reported. ROS: 11:32 Constitutional: Negative for fever, chills, and weight loss, Neck: Negative for injury, rn pain, and swelling, Cardiovascular: Negative for chest pain, palpitations, and edema, Respiratory: Negative for shortness of breath, cough, wheezing, and pleuritic chest pain, Abdomen/GI: Positive for nausea and diarrhea Back: Positive for chronic lower back pain with increased pain as of late MS/Extremity: Negative for injury and deformity, Skin: Negative for injury, rash, and discoloration, Neuro: Positive for numbness and tingling to bilateral lower extremities. Exam: 11:32 Constitutional: This is a well developed, well nourished patient who is awake, alert, rn appears in pain Head/Face: Normocephalic, atraumatic. Cardiovascular: Tachycardic, regular. No pulse deficits. Respiratory: No increased work of breathing, no retractions or nasal flaring. Abdomen/GI: Soft, non-tender MS/ Extremity: Pulses equal, no cyanosis. Neurovascular intact. 4 out of 5 strength bilateral lower extremities. Bilateral feet with darker color/dusky compared to proximal legs Neuro: Awake and alert, GCS 15, oriented to person, place, time, and situation. Cranial nerves II-XII grossly intact. Motor strength 4/5 in all extremities. Sensory grossly intact. Painful range of motion of bilateral legs Vital Signs: 09:59 BP 125 / 81; Pulse 104; Resp 20; Temp 98; Pulse Ox 96% on R/A; bp 11:00 BP 127 / 90; Pulse 102; Resp 20; Pulse Ox 98% on R/A; me1 12:05 Pain 6/10; me1 14:00 BP 119 / 86; Pulse 99; Resp 18; Pulse Ox 96% on R/A; me1 14:38 BP 134 / 85; Pulse 109; Resp 18; Pulse Ox 95% on R/A; me1 12:05 Pain Scale: Adult me1 MDM: 09:59 Patient medically screened. rn 14:20 Differential diagnosis: arthritis, Osteoarthritis Chronic pain, vertebral fracture, rn disc herniation, meningocele, strain, vascular disease. Data reviewed: vital signs, nurses notes, lab test result(s), radiologic studies, CT scan, MRI, and as a result, I will discharge patient. Counseling: I had a detailed discussion with the patient and/or guardian regarding the historical points, exam findings, and any diagnostic results supporting the discharge/admit diagnosis, lab results, radiology results, the need for outpatient follow up, to return to the emergency department if symptoms worsen or persist or if there are any questions or concerns that arise at home. Special discussion: I discussed with the patient/guardian in detail that at this point there is no indication for admission to the hospital. It is understood, however, that if the symptoms persist or worsen the patient needs to return immediately for re-evaluation. Based on the history and exam findings, there is no indication for further emergent testing or inpatient evaluation. I discussed with the patient/guardian the need to see the back specialist for further evaluation of the symptoms. ED course: No acute or progressive changes in MRI today compared to study 1 month ago. Still shows fluid collection along the spine which is nonenhancing and most likely meningocele or pseudomeningocele. Patient without bowel or bladder incontinence here. Seems primarily pain control problem. Will discharge home with return precautions and follow-up with pain management. Needs to follow-up with her spine surgeon as well. No indication for emergent admission or procedure at this time.. 14:22 ED course: Had long conversation with patient regarding alcohol use and elevated liver rn enzymes. CT shows mild ascites. Discussed with patient my concern of alcoholic liver disease and possible progression to cirrhosis and patient understands needs to quit.. 09/22 10:15 Order name: CBC with Diff; Complete Time: 14:12 rn 09/22 10:15 Order name: Basic Metabolic Panel; Complete Time: 14:12 rn 09/22 10:15 Order name: Protime (+inr); Complete Time: 14:12 rn 09/22 10:15 Order name: Ptt, Activated; Complete Time: 14:12 rn 09/22 10:17 Order name: Lipase; Complete Time: 14:12 rn 09/22 10:17 Order name: LFT's; Complete Time: 14:12 rn 09/22 10:15 Order name: CT Abd/Pelvis - PO Contrast Only; Complete Time: 14:12 rn 09/22 11:36 Order name: Lower Extremity Arterial Bilat US rn 09/22 12:53 Order name: Spine Lumbar W/Wo Cont; Complete Time: 14:12 EDMS 09/22 10:15 Order name: IV Start; Complete Time: 11:47 rn 09/22 10:17 Order name: Labs collected and sent; Complete Time: 12:02 rn Administered Medications: 11:53 Drug: Promethazine IVP 12.5 mg IVP once Route: IVP; Site: left antecubital; me1 12:05 Follow up: Response: No adverse reaction; Vomiting decreased me1 11:53 Drug: HYDROmorphone IVP 1 mg IVP once Route: IVP; Site: left antecubital; me1 12:05 Follow up: Pain 6/10 Adult; Response: No adverse reaction; Pain is decreased me1 14:30 Drug: HYDROmorphone IVP 1 mg IVP once Route: IVP; Site: left hand; me1 14:36 Follow up: Response: No adverse reaction; Pain is decreased me1 14:30 Drug: Promethazine IVP 12.5 mg IVP once Route: IVP; Site: left hand; me1 14:36 Follow up: Response: No adverse reaction; Nausea is decreased me1 Disposition Summary: 09/23/23 14:22 Discharge Ordered Notes: Location: Home rn Problem: chronic rn Symptoms: have improved rn Condition: Stable rn Diagnosis - Low back pain rn Followup: rn - With: Private Physician - When: As needed - Reason: Recheck today's complaints, Re-evaluation by your physician Discharge Instructions: - Discharge Summary Sheet rn - Chronic Back Pain, [id number] rn Forms: - Medication Reconciliation Form rn - Thank You Letter rn - Antibiotic furnace brazer - Prescription Opioid Use rn - Patient Portal Instructions rn - Leadership Thank You Letter rn Signatures: Dispatcher [employer] EDTN Jones Parham MD MD rn Peltier, Brian, RN RN bp Eddleman, Michelle, RN RN me1 Corrections: (The following items were deleted from the chart) 11:46 11:32 Constitutional: This is a well developed, well nourished patient who is awake, rn alert, appears in pain Head/Face: Normocephalic, atraumatic. Cardiovascular: Tachycardic, regular. No pulse deficits. Respiratory: No increased work of breathing, no retractions or nasal flaring. Abdomen/GI: Soft, non-tender MS/ Extremity: Pulses equal, no cyanosis. Neurovascular intact. 4 out of 5 strength bilateral lower extremities. Neuro: Awake and alert, GCS 15, oriented to person, place, time, and situation. Cranial nerves II-XII grossly intact. Motor strength 4/5 in all extremities. Sensory grossly intact. Painful range of motion of bilateral legs rn 12:53 10:16 Lumbar Spine Wo Con+MRI.RAD.BRZ ordered. EDMS EDMS
--- NOTE | 2023-09-23 14:23 | ER ---
Nurse's Notes [facility] Name: Heather Coon Age: 53 yrs Sex: Female : 1970 Arrival Date: 09/23/2023 Time: 09:56 Bed 17 Private MD: Diagnosis: Low back pain Presentation: 09/22 09:59 Chief complaint: EMS states: CHRONIC PAIN, DC FROM HOSPITAL Y/D. Coronavirus screen: At bp this time, the client does not indicate any symptoms associated with coronavirus-19. Ebola Screen: No symptoms or risks identified at this time. Initial Sepsis Screen: Does the patient meet any 2 criteria? No. Patient's initial sepsis screen is negative. Does the patient have a suspected source of infection? No. Patient's initial sepsis screen is negative. Risk Assessment: Do you want to hurt yourself or someone else? Patient reports no desire to harm self or others. Onset of symptoms is unknown. 09:59 Method Of Arrival: EMS: [facility] bp 09:59 Acuity: ANDER 4 bp Triage Assessment: 10:00 General: Appears in no apparent distress. obese, Behavior is cooperative, appropriate bp for age, anxious. Pain: Complains of pain in back. 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 - Social history:: Smoking status: Patient reports the use of cigarette tobacco products, unknown amount. - Family history:: not pertinent. - Hospitalizations: : No recent hospitalization is reported. Screenin:47 [facility] ED Fall Risk Assessment (Adult) History of falling in the last 3 months, me1 including since admission Yes- single mechanical fall (1 pt) Confusion or Disorientation No (0 pts) Intoxicated or Sedated No (0 pts) Impaired Gait Yes (1 pt) Mobility Assist Device Used Yes (1 pt) Altered Elimination Yes (1 pt) Score/Fall Risk Level 3 or more points = High Risk Maintained a safe environment, Hourly rounding (assess needs \\T\\ fall precautionary measures) done, Used ambulatory aids as needed (educated on \\T\\ assisted with). Abuse screen: Denies threats or abuse. Nutritional screening: No deficits noted. Tuberculosis screening: No symptoms or risk factors identified. Assessment: 10:25 General: PT EXHIBITING SZ-LIKE ACTIVITY WITHOUT FALL OR POST-ICTAL PERIOD. MD AWARE. bp 10:47 General: Appears uncomfortable, obese, unkempt, well developed, Behavior is me1 cooperative, appropriate for age, crying, Smells of urine. Reports worsening of pain to BLE and lower back with new onset of urinary incontinence that started early this morning. Pain: Complains of pain in right leg and left leg and back Pain does not radiate. Pain currently is 10 out of 10 on a pain scale. Quality of pain is described as burning, aching, Pain began Is continuous, chronic. Neuro: Level of Consciousness is awake, alert, obeys commands, Oriented to person, place, time, situation, Appropriate for age. Cardiovascular: Patient's skin is warm and dry. Respiratory: Airway is patent Trachea midline Respiratory effort is even, unlabored, Respiratory pattern is regular, symmetrical. : Reports incontinence, since early this morning. Musculoskeletal: Reports pain in right leg and left leg and back chronic pain is "a lot worse" today. 12:00 Reassessment: No changes from previously documented assessment. me1 13:00 Reassessment: No changes from previously documented assessment. me1 14:00 General: Returned to room from MRI. . me1 14:38 Reassessment: Patient and/or family updated on plan of care and expected duration. Pain me1 level reassessed. Patient is alert, oriented x 3, equal unlabored respirations, skin warm/dry/pink. Patient states symptoms have improved. Vital Signs: 09:59 BP 125 / 81; Pulse 104; Resp 20; Temp 98; Pulse Ox 96% on R/A; bp 11:00 BP 127 / 90; Pulse 102; Resp 20; Pulse Ox 98% on R/A; me1 12:05 Pain 6/10; me1 14:00 BP 119 / 86; Pulse 99; Resp 18; Pulse Ox 96% on R/A; me1 14:38 BP 134 / 85; Pulse 109; Resp 18; Pulse Ox 95% on R/A; me1 12:05 Pain Scale: Adult me1 ED Course: 09:58 Patient arrived in ED. im 09:59 Jones Parham MD is Attending Physician. rn 10:00 Triage completed. bp 10:00 Arm band placed on. bp 10:00 Client placed on continuous cardiac and pulse oximetry monitoring. NIBP monitoring me1 applied. clinical research monitor on. Pulse ox on. NIBP on. 10:45 Frieda Boyd, BETH is Primary Nurse. me1 10:47 Patient has correct armband on for positive identification. me1 11:42 Missed attempt(s): 22 gauge in right forearm. me1 11:42 Missed attempt(s): 22 gauge in right upper arm. me1 11:47 Inserted saline lock: 22 gauge in left antecubital area, using aseptic technique. ls5 11:53 Initial lab(s) drawn. me1 12:01 Initial lab(s) drawn, by chemistry lab instructor, sent to lab. me1 12:08 Inserted saline lock: 22 gauge in left wrist, using aseptic technique. me1 12:12 CT Abd/Pelvis - PO Contrast Only In Process Unspecified. EDMS 12:20 Patient moved to MRI. me1 12:53 Spine Lumbar W/Wo Cont In Process Unspecified. EDMS 13:42 Lower Extremity Arterial Bilat US In Process Unspecified. EDMS 13:50 Warm blanket given. Head of bed elevated. me1 14:48 IV discontinued, intact, bleeding controlled, No redness/swelling at site. Pressure me1 dressing applied. 14:49 No provider procedures requiring assistance completed. me1 14:50 Provided Education on: POC. Verbalized understanding. . me1 14:52 IV discontinued, intact, bleeding controlled, No redness/swelling at site. Pressure me1 dressing applied. Administered Medications: 11:53 Drug: Promethazine IVP 12.5 mg IVP once Route: IVP; Site: left antecubital; me1 12:05 Follow up: Response: No adverse reaction; Vomiting decreased me1 11:53 Drug: HYDROmorphone IVP 1 mg IVP once Route: IVP; Site: left antecubital; me1 12:05 Follow up: Pain 6/10 Adult; Response: No adverse reaction; Pain is decreased me1 14:30 Drug: HYDROmorphone IVP 1 mg IVP once Route: IVP; Site: left hand; me1 14:36 Follow up: Response: No adverse reaction; Pain is decreased me1 14:30 Drug: Promethazine IVP 12.5 mg IVP once Route: IVP; Site: left hand; me1 14:36 Follow up: Response: No adverse reaction; Nausea is decreased me1 Medication: 10:47 VIS not applicable for this client. me1 Outcome: 14:22 Discharge ordered by . rn 14:52 Discharged to home via wheelchair, with significant other, me1 14:52 Condition: stable 14:52 Condition: stable 14:52 Discharge instructions given to patient, family, Instructed on discharge instructions, follow up and referral plans. Demonstrated understanding of instructions, follow-up care, 14:53 Patient left the ED. me1 Signatures: Dispatcher [employer] EDJones Mane MD MD rn Peltier, Brian, RN Deshaun Caldwell ls5 Estelle Sun Michelle RN RN me1
--- NOTE | 2023-09-23 15:05 | RAD REPORT ---
EXAM DESCRIPTION: US - Lower Extremity Arterial Bilat - 09/23/2023 1:49 pm CLINICAL HISTORY: Leg pain foot discoloration COMPARISON: None FINDINGS: Right common femoral, superficial femoral and popliteal arteries demonstrate triphasic waveforms The right posterior tibial and dorsalis pedis arteries demonstrate triphasic waveforms The left common femoral, superficial femoral and popliteal arteries demonstrate triphasic waveforms The left posterior tibial and dorsalis pedis arteries demonstrate triphasic waveforms Grayscale, color and spectral analysis performed on all vessels IMPRESSION: No significant abnormality displayed
[2023-09-23 15:06] VITALS: BP 134/85; TEMP 98; O2SAT 95
== END ==
LOC: ER 09:56
DX: M54.50 Low back pain, unspecified (principal); R11.0 Nausea; I10 Essential (primary) hypertension; Z72.0 Tobacco use; Z85.41 Personal history of malignant neoplasm of cervix uteri; Z88.8 Allergy status to other drugs, medicaments and biological substances; Z91.018 Allergy to other foods
CPT/HCPCS: 85025; 80048; 36415; 85610; 80076; 85730; 83690; 74177; 93925; 72158; Q9967; A9577; J2550 ×2; J1170 ×2; 99285

== ENCOUNTER 2023-09-26 22:52 | Observation (INO) | payer OTHER ==
[2023-09-26] MEDS ORDERED: ALBUTEROL 2.5 MG/3 ML NEB SOL ONE (22:58)
[2023-09-26] MEDS ORDERED: ONDANSETRON 4 MG/2 ML VIAL ONE (22:58)
[2023-09-26] MEDS ORDERED: IPRATROPIUM BROM 0.5MG/2.5ML ONE (22:58)
--- OUTSIDE RECORDS SUMMARY | 2023-09-26 23:22 | XMS REPORT | Continuity of Care Document ---
Author Name Unknown Address [address] [facility] [place] [address] [facility] thconnect Address [address] [facility] [address] [place] [address] Care Team Providers Care Professor/Nurse Anesthetist Name Role Phone Alina Aneta SUAREZ Primary Care Physician [phone] PANKAJ OBREGON Attending Clinician Un available AYDEE GO Attending Clinician Unavailable CARA BURGESS Attending Clinician Unavailab ADAM Cabrera Attending Clinician Unavailable THOMAS LOZOYA Attending Clinician Nina MARIAH Quiroga Attending Clinician Unavailable MYLA MIJARES Attending Clinician Unavailable SIDDHARTH STANFORD Attending Clinician UnavailSARAI Martin Attending Clinician Unavaila GUSTAVO Newsome Attending Clinician Unavailable PROVIDER, CAMPAIGNS Attending Clinician Unavaila SHY Marie Attending Clinician Unavailable YONATAN LORENZO Attending Clinician Unava ilSELIN Arreola Attending Clinician Unavailable Nir ELIZONDO, London Dixon Attending Clinician Nina lisa Obregon MD, Pankaj Bernal Attending Clinician Selin Fry DO Attending Clinician [phone] Bud ELIZONDO, Selin Attending Clinician [phone] JUANY GREEN Attending Clinician Unavailable DEMETRIUS TOBAR Attending Clinician Unavailab KETAN Armenta Attending Clinician Unavail able Kael BELTRAN, Ketan Sanders Attending Clinician [phone] BRIAN BRYAN Attending Clinician Unavailable Singer KRAFT, Brian Attending Clinician [phone] Jenifer ELIZONDO, Cara Hamilton Attending Clinician [phone] Aydee Go MD Attending Clinician [phone] System, Provider Not In Attending Clinician Unav Dallas Allen Attending Clinician Unavaila yaya Garcia MD, Adam Joshi Attending Clinician [phone] Mercedez ELIZONDO, Harry Attending Clinician [phone] Rocael ELIZONDO, Antwon Mccrary Attending Clinician + [phone] Yue Bui MD Attending Clinician [phone] Connie Davey MD Attending Clinician + [phone] Mariah Aldridge MD Attending Clinician [phone] Valerio ELIZONDO, Thomas Hopkins Attending Clinician CONNIE DAVEY Attending Clinician UnavailAlfonso Oh Attending Clinician Unavailable Alfonso Lopez Attending Clinician [phone] RITCHIE WARREN Attending Clinician Unavailable Ritchie Warren MD Attending Clinician [phone] Rk RN, Blanca Attending Clinician [phone] Reji ELIZONDO, Halima Hummel Attending Clinician [phone] Lucho ELIZONDO, Jen Olivia Attending Clinician [phone] Roxi ELIZONDO, Parrish Reyez Attending Clinici an ROXI, PARRISH CR Attending Clinician Unavaila LORENZA Mariscal Attending Clinician Unavailable Alcon ELIZONDO, Sav Attending Clinician [phone] Essence ELIZONDO, Lorenza Attending Clinician [phone] Corey DUMONT, Maria Teresa Attending Clinician + [phone] CHANTEL BOJORQUEZ Attending Clinician CHANTEL Kelly Attending Clinician Jack Ibrahim MD, Brandyn Otoole Attending Clinician [phone] SELINA MARTINES Attending Clinician Unavailable Sapna Vargas DO Attending Clinician [phone] Tyrel ELIZONDO, Glory Katz Attending Clinician + Conrad ELIZONDO, Selina Attending Clinician [phone] Vaccine, Moapa Pedi Attending Clinician U Jose Titus MD Attending Clinician [phone] JOSE PAK Attending Clinician Unavailable NICHELLE VIRK Attending Clinician Unavaila Nichelle Lakhani Attending Clinician [phone] Doctor Unassigned, [place] Attending Clinician U chelsi Nava RN, Miky Attending Clinician Unavailab Fabrice Jarrett Attending Clinician [phone] Lydia Eaton Attending Clinician [phone] Unknown, Attending Attending Clinician Unavailab monroe UNKNOWN, ATTENDING Attending Clinician Unavailab Anali Berg Attending Clinician [phone] Yehuda Arcos MD Attending Clinician [phone] PANKAJ OBREGON Admitting Clinician Un available CARA BURGESS Admitting Clinician Unavailab ADAM Cabrera Admitting Clinician Unavailable MARIAH ALDRIDGE Admitting Clinician Unavailable CONNIE DAVEY Admitting Clinician UnavailAlfonso Oh Admitting Clinician Unavailable RITCHIE WARREN Admitting Clinician Unavailable JEN GELLER Admitting Clinician Unavaila LORENZA Mariscal Admitting Clinician Unavailable Lorenza Lowry MD Admitting Clinician [phone] BRANDYN IBRAHIM Admitting Clinician Unavailable Brandyn Ibrahim MD Admitting Clinician [phone] GLORY ESTEVES Admitting Clinician Unav ailable NICHELLE VIRK Admitting Clinician Unavaila ble Payers Payer Name Policy Type Policy Number Effective Date Expirati on Date Source [facility] [id number] 2023 [facility] [id number]23 00:00:00 [facility] 9 [id number] 2023 00:00:00 [facility] [id number] 2023 00:00:00 MEDICAID PENDING PENDING 2022 00:00:00 Problems Condition Name Condition Details Condition Category Status Onset Date Resolution Date Last Treatment Date Treating Clinician Comments Source Congestive heart failure (multi HCC) Congestive heart failure (multi HCC) Disease Active 09-11 00:00: 00 Cynthia Erazoa lias Bipolar disorder (multi HCC) Bipolar disorder (multi HCC) Disease Active 09-11 00:00: 00 Cynthia Santoyo Externa lisa Seizure disorder (multi HCC) Seizure disorder (multi HCC) Disease Active 09-11 00:00: 00 Cynthia Santoyo Externa lisa Prediabete s Prediabete s Disease Active 09-11 00:00: 00 Cynthia Santoyo Externa lisa Bilateral leg weakness Bilateral leg weakness Disease Active 2022-07 00:00: 00 [facility] Pneumonia Pneumonia Disease Active 2022-07 00:00: 00 [facility] Cavitary lesion of lung Cavitary lesion of lung Disease Active 2022-07 00:00: 00 [facility] Cervical myelopathy Cervical myelopathy Disease Recurre nce 2022-07 00:00: 00 [facility] Cervical disc disorder with myelopathy , high cervical region Cervical disc disorder with myelopathy , high cervical region Disease Active 2022-07 00:00: 00 [facility] Cord compressio n Cord compressio n Disease Recurre nce - 00:00: 00 [facility] Cauda equina compressio n Cauda equina compressio n Disease Active 03-30 00:00: 00 [facility] Seizure Seizure Disease Recurre pre 08-02 00:00: 00 [facility] Cardiomyop athy Cardiomyop athy Disease Active [...] [facility] Coronary artery disease involving resighini coronary artery of resighini heart without angina pectoris Coronary artery disease involving resighini coronary artery of resighini heart without angina pectoris Disease Active 07-31 [...] [facility] Coronary artery disease involving resighini coronary artery of resighini heart without angina pectoris Coronary artery disease involving resighini coronary artery of resighini heart without angina pectoris Disease Active 1-12 00:00: 00 [facility] Chronic bilateral low back pain with bilateral sciatica Chronic bilateral low back pain with bilateral sciatica Disease Active 2021-07 0-17 00:00: 00 [facility] 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 Disease Active 9 00:00: 00 [facility] Neuroforam inal [...] FLUOXETI NE Allergy Active 03-29 00:00: 00 [facility] GREEN TEA Allergy Active High Other 03-29 00:00: 00 [facility] LEVETIRA CETAM Allergy Active High N\\T\\V 03-29 00:00: 00 [facility] Green Tea Propensi ty to adverse reaction s Active 03-29 00:00: 00 Seizure like activity [facility] Levetira cetam Propensi ty to adverse reaction s Active Nausea And Vomiting 03-29 00:00: 00 Intensifi es seizure [facility] Fluoxeti ne Propensi ty to adverse reaction s Active 03-29 00:00: 00 [facility] Green Tea Drug Allergy Active Other (See Comments) 03-29 00:00: 00 Seizure like activity [facility] Levetira cetam Drug Allergy Active Nausea And Vomiting 03-29 00:00: 00 Intensifi es seizure [facility] LEVETIRA CETAM DRUG INGREDI Active Other-Cmnt 11-17 00:00: 00 [facility] Levetira cetam Propensi ty to adverse reaction s Active Other - See comments 11-17 00:00: 00 Makes seizures worse [facility] Levetira cetam Propensi ty to adverse reaction s Active Other 11-17 00:00: 00 Intensifi es seizure Makes seizures worse Makes seizures worse Intensifi es seizure Cynthia Bedoyaold - Externa l Green Tea Propensi ty to adverse reaction s Active 08-02 00:00: 00 [facility] GREEN TEA Allergy Active 08-02 00:00: 00 [facility] FLUOXETI NE Allergy Active Med Rash 08-02 00:00: 00 [facility] Fluoxeti ne Propensi ty to adverse reaction s Active Rash 08-02 00:00: 00 [facility] Fluoxeti ne Propensi ty to adverse reaction s Active Unknown - See comments 03-25 00:00: 00 [facility] FLUOXETI NE DRUG INGREDI Active Unknown-Cmnt 03-25 00:00: 00 [facility] DICLOFEN AC DRUG INGREDI Active HYPERTENSION 11-20 00:00: 00 [facility] Diclofen ac Propensi ty to adverse reaction s Active Anxiety 11-20 00:00: 00 Cynthia Garcia - Externa lisa GREEN TEA DRUG INGREDI Active Med Other-Cmnt 08-10 00:00: 00 [facility] Green Tea Propensi ty to adverse reaction s to drug Active Other - See comments 08-10 00:00: 00 Seizures [facility] Green Tea Propensi ty to adverse reaction s Active Anxiety 08-10 00:00: 00 Seizure like activity Seizures Seizures Seizure like activity Cynthia Garcia - Externa l FLUOXETI NE HCL DRUG INGREDI Active Hives 03-19 00:00: 00 [facility] Fluoxeti ne Hcl Propensi ty to adverse reaction s Active Hives 2015-0 8-31 00:00: [facility] Family Member Diagnosis Comments Start Date Stop Date Sourc e Natural mother Alcohol abuse C [facility] Natural mother Stroke [facility] Natural mother Alcohol abuse C [facility] Natural mother Cancer [facility] Natural mother Diabetes [facility] Natural mother Heart disease C [facility] Natural mother Hyperlipidemia [facility] Natural mother Kidney disease [facility] Natural mother Stroke [facility] Paternal uncle Diabetes [facility] Social History Social Habit Start Date Stop Date Quantity Comments Source History SDOH Social Connections Get Together [facility] History SDOH Social Connections Gnosticism [facility] History SDOH Social Connections Membership [facility] History SDOH Social Connections Meetings [facility] History SDOH Alcohol Frequency [facility] History SDOH Alcohol Std Drinks [facility] History SDOH Alcohol Binge [facility] History SDOH Housing Homeless Last Year [facility] Sexual orientation C [facility] Tobacco use and exposure 2023-09-11 00:00:00 2023-09-11 00:00:00 Smokeless tobacco non-user Cynthia Garcia - External History of Social function 2023-08-03 00:00:00 2023-08-03 00:00:00 [facility] Alcohol intake 2023-06-02 00:00:00 2023-06-02 00:00:00 Current drinker of alcohol (finding) [facility] Exposure to SARS-CoV-2 (event) 2023-05-18 00:00:00 2023-05-28 07:28:00 Not sure [facility] History SDOH Housing Unable to Pay - In the last 12 months, was there a time when you were not able to pay the mortgage or rent on time? 2023-05-26 00:00:00 2023-05-26 00:00:00 Yes [facility] Cigarettes smoked current (pack per day) - Reported 2023-05-26 00:00:00 2023-05-26 00:00:00 [facility] Cigarette pack-years 2023-05-26 00:00:00 2023-05-26 00:00:00 [facility] History of tobacco use 1987-05-22 00:00:00 2023-05-22 00:00:00 Cigarette Smoker [facility] History SDOH Housing Places Lived 2023-03-30 00:00:00 2023-03-30 00:00:00 1 [facility] Alcohol Comment 2023-03-29 00:00:00 2023-03-29 00:00:00 2x a week [facility] History SDOH Social Connections Phone 2022-08-01 00:00:00 2022-08-01 00:00:00 5 [facility] History SDOH Social Connections Living 2022-08-01 00:00:00 2022-08-01 00:00:00 5 [facility] History SDOH Physical Activity DPW 2022-08-01 00:00:00 2022-08-01 00:00:00 0 [facility] History SDOH Physical Activity MPS 2022-08-01 00:00:00 2022-08-01 00:00:00 0 [facility] History SDOH Financial 2022-08-01 00:00:00 2022-08-01 00:00:00 3 [facility] History SDOH Food Worry 2022-08-01 00:00:00 2022-08-01 00:00:00 1 [facility] History SDOH Food Scarcity 2022-08-01 00:00:00 2022-08-01 00:00:00 1 [facility] History SDOH Transport Med 2022-08-01 00:00:00 2022-08-01 00:00:00 2 [facility] History SDOH Transport Non-Med 2022-08-01 00:00:00 2022-08-01 00:00:00 2 [facility] Education - What is the highest level of school you have completed or the highest degree you have received? 2022-07-31 00:00:00 2022-07-31 00:00:00 GED or equivalent [facility] Sex Assigned At 1970 00:00:00 1970 00:00:00 [facility] Smoking Status Start Date Stop Date Source Never smoked tobacco Cynthia Guillen Ex-smoker 2023-05-26 00:00:00 2023-05-26 00:00:00 [facility] Smokes tobacco daily 2023-03-29 00:00:00 [facility] Medications Ordered Medication Name Filled Medication Name Start Date Stop Date Current Medication? Ordering Clinician Indication Dosage Frequency Signature (SIG) Comments Components Source Metronidazo le 500 MG oral Tablet 09-11 11:33: 57 Yes TAKE ONE (1) TABLET(S) BY MOUTH EVERY EIGHT HOURS FOR 7 DAYS. Cynthia gonzalez Pantoprazol e Sodium 40 MG oral Tablet Delayed Response 09-11 11:33: 57 Yes 40mg Take 1 tablet (40 mg total) by mouth daily. Cynthia gonzalez Varenicline Tartrate 1 MG oral Tablet 09-11 11:33: 57 Yes 1mg Take 1 tablet (1 mg total) by mouth 2 times daily. Cynthia gonzalez Loratadine 10 MG oral Capsule 09-11 11:33: 57 Yes Take by mouth daily. Cynthia gonzalez Acetaminoph en-Codeine (TYLENOL/CO DEINE #3) 300-30 MG oral Tablet 09-11 00:00: 00 Yes [id number] 1{tbl} Q.25D Take 1 tablet by mouth every 6 hours as needed for pain. Cynthia gonzalez Mirtazapine 15 MG oral Tablet 09-11 00:00: 00 Yes [id number] 15mg QD Take 1 tablet (15 mg total) by mouth nightly as needed. Cynthia gonzalez DULoxetine (CYMBALTA) 60 MG capsule 09-09 00:00: 00 10-08 23:59 :00 Yes 60mg QD Take 1 capsule (60 mg total) by mouth daily for 30 days. [facility] DULoxetine (CYMBALTA) 60 MG capsule 09-09 00:00: 00 10-08 23:59 :00 Yes 60mg QD Take 1 capsule (60 mg total) by mouth daily for 30 days. [facility] DULoxetine (CYMBALTA) 60 MG capsule 09-09 00:00: 00 10-08 23:59 :00 Yes 60mg QD Take 1 capsule (60 mg total) by mouth daily for 30 days. [facility] DULoxetine (CYMBALTA) 60 MG capsule 09-09 00:00: 00 10-08 23:59 :00 Yes 60mg QD Take 1 capsule (60 mg total) by mouth daily for 30 days. [facility] DULoxetine (CYMBALTA) 60 MG capsule 09-09 00:00: 00 10-08 23:59 :00 Yes 60mg QD Take 1 capsule (60 mg total) by mouth daily for 30 days. [facility] DULoxetine (CYMBALTA) 60 MG capsule 09-09 00:00: 00 10-08 23:59 :00 Yes 60mg QD Take 1 capsule (60 mg total) by mouth daily for 30 days. [facility] varenicline (CHANTIX) 1 mg tablet 2023-0 -20 10:51: 03 Yes 1mg Q.5D Take 1 tablet (1 mg total) by mouth 2 (two) times daily Give with meals and with a full glass of water.. [facility] atorvastati n (LIPITOR) 20 MG tablet 2023-0 2-20 10:51: 03 Yes 20mg QD Take 1 tablet (20 mg total) by mouth daily. [facility] varenicline (CHANTIX) 1 mg tablet 2023-0 2-20 10:51: 03 Yes 1mg Q.5D Take 1 tablet (1 mg total) by mouth 2 (two) times daily Give with meals and with a full glass of water.. [facility] atorvastati n (LIPITOR) 20 MG tablet 2023-0 2-20 10:51: 03 Yes 20mg QD Take 1 tablet (20 mg total) by mouth daily. [facility] varenicline (CHANTIX) 1 mg tablet 2023-0 2-20 10:51: 03 Yes 1mg Q.5D Take 1 tablet (1 mg total) by mouth 2 (two) times daily Give with meals and with a full glass of water.. [facility] atorvastati n (LIPITOR) 20 MG tablet -20 10:51: 03 Yes 20mg QD Take 1 tablet (20 mg total) by mouth daily. [facility] varenicline (CHANTIX) 1 mg tablet - 10:51: 03 Yes 1mg Q.5D Take 1 tablet (1 mg total) by mouth 2 (two) times daily Give with meals and with a full glass of water.. [facility] atorvastati n (LIPITOR) 20 MG tablet 09-08 10:51: 03 Yes 20mg QD Take 1 tablet (20 mg total) by mouth daily. [facility] varenicline (CHANTIX) 1 mg tablet 09-08 10:51: 03 Yes 1mg Q.5D Take 1 tablet (1 mg total) by mouth 2 (two) times daily Give with meals and with a full glass of water.. [facility] atorvastati n (LIPITOR) 20 MG tablet 09-08 10:51: 03 Yes 20mg QD Take 1 tablet (20 mg total) by mouth daily. [facility] varenicline (CHANTIX) 1 mg tablet 09-08 10:51: 03 Yes 1mg Q.5D Take 1 tablet (1 mg total) by mouth 2 (two) times daily Give with meals and with a full glass of water.. [facility] atorvastati n (LIPITOR) 20 MG tablet 09-08 10:51: 03 Yes 20mg QD Take 1 tablet (20 mg total) by mouth daily. [facility] Cyanocobala min (Vitamin B-12) 1000 MCG oral Tablet 09-08 00:00: 00 10-08 04:59 :00 Yes 1000ug Take 1 tablet (1,000 mcg total) by mouth daily. Cynthia gonzalez lidocaine (LIDODERM) 4 % patch 09-08 00:00: 00 10-07 23:59 :00 Yes 3{patch } Q24H Place 3 patches onto the skin daily for 30 days. [facility] cyanocobala min (VITAMIN B-12) 1000 MCG tablet 0 2-20 00:00: 00 10-07 23:59 :00 Yes 1000ug QD Take 1 tablet (1,000 mcg total) by mouth daily for 30 days. [facility] lidocaine (LIDODERM) 4 % patch 0 2-20 00:00: 00 10-07 23:59 :00 Yes 3{patch } Q24H Place 3 patches onto the skin daily for 30 days. [facility] cyanocobala min (VITAMIN B-12) 1000 MCG tablet 2023-0 - 00:00: 00 10-07 23:59 :00 Yes 1000ug QD Take 1 tablet (1,000 mcg total) by mouth daily for 30 days. [facility] lidocaine (LIDODERM) 4 % patch 2023-0 2-20 00:00: 00 10-07 23:59 :00 Yes 3{patch } Q24H Place 3 patches onto the skin daily for 30 days. [facility] cyanocobala min (VITAMIN B-12) 1000 MCG tablet 0 2-20 00:00: 00 10-07 23:59 :00 Yes 1000ug QD Take 1 tablet (1,000 mcg total) by mouth daily for 30 days. [facility] lidocaine (LIDODERM) 4 % patch 2023-0 2-20 00:00: 00 10-07 23:59 :00 Yes 3{patch } Q24H Place 3 patches onto the skin daily for 30 days. [facility] cyanocobala min (VITAMIN B-12) 1000 MCG tablet 2023-0 2-20 00:00: 00 10-07 23:59 :00 Yes 1000ug QD Take 1 tablet (1,000 mcg total) by mouth daily for 30 days. [facility] lidocaine (LIDODERM) 4 % patch 2023-0 2-20 00:00: 00 10-07 23:59 :00 Yes 3{patch } Q24H Place 3 patches onto the skin daily for 30 days. [facility] cyanocobala min (VITAMIN B-12) 1000 MCG tablet 09-08 00:00: 00 10-07 23:59 :00 Yes 1000ug QD Take 1 tablet (1,000 mcg total) by mouth daily for 30 days. [facility] lidocaine (LIDODERM) 4 % patch 09-08 00:00: 00 10-07 23:59 :00 Yes 3{patch } Q24H Place 3 patches onto the skin daily for 30 days. [facility] cyanocobala min (VITAMIN B-12) 1000 MCG tablet 09-08 00:00: 00 10-07 23:59 :00 Yes 1000ug QD Take 1 tablet (1,000 mcg total) by mouth daily for 30 days. [facility] metoprolol succinate (TOPROL-XL) 25 MG 24 hr tablet 09-07 16:47: 05 09-07 00:00 :00 No 25mg QD Take 1 tablet (25 mg total) by mouth daily. [facility] albuterol HFA (VENTOLIN HFA) 90 mcg/actuati on inhaler 09-07 16:47: 05 09-07 00:00 :00 No 1{puff} Inhale 1 puff by mouth via inhaler every 6 (six) hours as needed for Wheezing. [facility] fluticasone -umeclidin- vilanter (Trelegy Ellipta) 200-62.5-25 mcg DsDv 09-07 16:47: 05 09-07 00:00 :00 No QD Inhale by mouth via inhaler daily. [facility] metoprolol succinate (TOPROL-XL) 25 MG 24 hr tablet 09-07 16:47: 05 09-07 00:00 :00 No 25mg QD Take 1 tablet (25 mg total) by mouth daily. [facility] albuterol HFA (VENTOLIN HFA) 90 mcg/actuati on inhaler 09-07 16:47: 05 09-07 00:00 :00 No 1{puff} Inhale 1 puff by mouth via inhaler every 6 (six) hours as needed for Wheezing. [facility] fluticasone -umeclidin- vilanter (Trelegy Ellipta) 200-62.5-25 mcg DsDv 09-07 16:47: 05 09-07 00:00 :00 No QD Inhale by mouth via inhaler daily. [facility] metoprolol succinate (TOPROL-XL) 25 MG 24 hr tablet 09-07 16:47: 05 09-07 00:00 :00 No 25mg QD Take 1 tablet (25 mg total) by mouth daily. [facility] albuterol HFA (VENTOLIN HFA) 90 mcg/actuati on inhaler 09-07 16:47: 05 09-07 00:00 :00 No 1{puff} Inhale 1 puff by mouth via inhaler every 6 (six) hours as needed for Wheezing. [facility] fluticasone -umeclidin- vilanter (Trelegy Ellipta) 200-62.5-25 mcg DsDv 09-07 16:47: 09-07 00:00 :00 No QD Inhale by mouth via inhaler daily. [facility] metoprolol succinate (TOPROL-XL) 25 MG 24 hr tablet 09-07 16:47: 05 09-07 00:00 :00 No 25mg QD Take 1 tablet (25 mg total) by mouth daily. [facility] albuterol HFA (VENTOLIN HFA) 90 mcg/actuati on inhaler 09-07 16:47: 05 09-07 00:00 :00 No 1{puff} Inhale 1 puff by mouth via inhaler every 6 (six) hours as needed for Wheezing. [facility] fluticasone -umeclidin- vilanter (Trelegy Ellipta) 200-62.5-25 mcg DsDv 09-07 16:47: 05 09-07 00:00 :00 No QD Inhale by mouth via inhaler daily. [facility] metoprolol succinate (TOPROL-XL) 25 MG 24 hr tablet 09-07 16:47: 05 09-07 00:00 :00 No 25mg QD Take 1 tablet (25 mg total) by mouth daily. [facility] albuterol HFA (VENTOLIN HFA) 90 mcg/actuati on inhaler 09-07 16:47: 05 09-07 00:00 :00 No 1{puff} Inhale 1 puff by mouth via inhaler every 6 (six) hours as needed for Wheezing. [facility] fluticasone -umeclidin- vilanter (Trelegy Ellipta) 200-62.5-25 mcg DsDv 09-07 16:47: 05 09-07 00:00 :00 No QD Inhale by mouth via inhaler daily. [facility] metoprolol succinate (TOPROL-XL) 25 MG 24 hr tablet 09-07 16:47: 05 09-07 00:00 :00 No 25mg QD Take 1 tablet (25 mg total) by mouth daily. [facility] albuterol HFA (VENTOLIN HFA) 90 mcg/actuati on inhaler 09-07 16:47: 05 09-07 00:00 :00 No 1{puff} Inhale 1 puff by mouth via inhaler every 6 (six) hours as needed for Wheezing. [facility] fluticasone -umeclidin- vilanter (Trelegy Ellipta) 200-62.5-25 mcg DsDv 09-07 16:47: 05 09-07 00:00 :00 No QD Inhale by mouth via inhaler daily. [facility] Albuterol HFA 108 (90 Base) MCG/ACT IN AERS 09-07 00:00: 00 10-07 04:59 :00 Yes 1{puff} Q.25D Inhale 1 puff into the lungs every 6 hours as needed. Cynthia gonzalez Baclofen 5 MG oral Tablet 00:00: 00 10-07 04:59 :00 Yes 5mg Take 1 tablet (5 mg total) by mouth nightly. Cynthia gonzalez Sennosides- Docusate Sodium 8.6-50 MG oral Tablet 2- 00:00: 00 10-07 04:59 :00 Yes 2{tbl} Take 2 tablets by mouth 2 times daily. Cynthia gonzalez tamsulosin (FLOMAX) 0.4 mg Cap 24 hr capsule - 00:00: 00 10-06 23:59 :00 Yes .4mg QD Take 1 capsule (0.4 mg total) by mouth daily for 30 days. [facility] senna-docus ate (SENOKOT S) 8.6-50 mg per tablet - 00:00: 00 10-06 23:59 :00 Yes 2{tbl} Q.5D Take 2 tablets by mouth 2 (two) times daily for 30 days. [facility] polyethylen e glycol (GLYCOLAX) 17 gram packet - 00:00: 00 10-06 23:59 :00 Yes 17g Q.5D Take 17 g by mouth 2 (two) times daily for 30 days. [facility] gabapentin (NEURONTIN) 400 MG capsule - 00:00: 00 10-06 23:59 :00 Yes 400mg Q.[id number] 3D Take 1 capsule (400 mg total) by mouth 3 (three) times daily for 30 days. [facility] furosemide (LASIX) 20 MG tablet - 00:00: 00 10-06 23:59 :00 Yes 20mg QD Take 1 tablet (20 mg total) by mouth daily for 30 days. [facility] fluticasone -umeclidin- vilanter (Trelegy Ellipta) 200-62.5-25 mcg DsDv 2- 00:00: 00 10-06 23:59 :00 Yes 1{inhal ation} QD Inhale 1 Inhalation by mouth via inhaler daily for 30 days. [facility] albuterol HFA (VENTOLIN HFA) 90 mcg/actuati on inhaler 09-07 00:00: 00 10-06 23:59 :00 Yes 1{puff} Inhale 1 puff by mouth via inhaler every 6 (six) hours as needed for Wheezing for up to 30 days. [facility] metoprolol succinate (TOPROL-XL) 25 MG 24 hr tablet 09-07 00:00: 00 10-06 23:59 :00 Yes 25mg QD Take 1 tablet (25 mg total) by mouth daily for 30 days. [facility] baclofen (LIORESAL) 5 mg Tab 09-07 00:00: 00 10-06 23:59 :00 Yes 5mg QD Take 1 tablet (5 mg total) by mouth nightly for 30 days. [facility] tamsulosin (FLOMAX) 0.4 mg Cap 24 hr capsule 09-07 00:00: 00 10-06 23:59 :00 Yes .4mg QD Take 1 capsule (0.4 mg total) by mouth daily for 30 days. [facility] senna-docus ate (SENOKOT S) 8.6-50 mg per tablet 09-07 00:00: 00 10-06 23:59 :00 Yes 2{tbl} Q.5D Take 2 tablets by mouth 2 (two) times daily for 30 days. [facility] polyethylen e glycol (GLYCOLAX) 17 gram packet 09-07 00:00: 00 10-06 23:59 :00 Yes 17g Q.5D Take 17 g by mouth 2 (two) times daily for 30 days. [facility] gabapentin (NEURONTIN) 400 MG capsule 09-07 00:00: 00 10-06 23:59 :00 Yes 400mg Q.[id number] 3D Take 1 capsule (400 mg total) by mouth 3 (three) times daily for 30 days. [facility] furosemide (LASIX) 20 MG tablet 09-07 00:00: 00 10-06 23:59 :00 Yes 20mg QD Take 1 tablet (20 mg total) by mouth daily for 30 days. [facility] fluticasone -umeclidin- vilanter (Trelegy Ellipta) 200-62.5-25 mcg DsDv - 00:00: 00 10-06 23:59 :00 Yes 1{inhal ation} QD Inhale 1 Inhalation by mouth via inhaler daily for 30 days. [facility] albuterol HFA (VENTOLIN HFA) 90 mcg/actuati on inhaler 09-07 00:00: 00 10-06 23:59 :00 Yes 1{puff} Inhale 1 puff by mouth via inhaler every 6 (six) hours as needed for Wheezing for up to 30 days. [facility] metoprolol succinate (TOPROL-XL) 25 MG 24 hr tablet 09-07 00:00: 00 10-06 23:59 :00 Yes 25mg QD Take 1 tablet (25 mg total) by mouth daily for 30 days. [facility] baclofen (LIORESAL) 5 mg Tab 09-07 00:00: 00 10-06 23:59 :00 Yes 5mg QD Take 1 tablet (5 mg total) by mouth nightly for 30 days. [facility] tamsulosin (FLOMAX) 0.4 mg Cap 24 hr capsule 09-07 00:00: 00 10-06 23:59 :00 Yes .4mg QD Take 1 capsule (0.4 mg total) by mouth daily for 30 days. [facility] senna-docus ate (SENOKOT S) 8.6-50 mg per tablet 09-07 00:00: 00 10-06 23:59 :00 Yes 2{tbl} Q.5D Take 2 tablets by mouth 2 (two) times daily for 30 days. [facility] polyethylen e glycol (GLYCOLAX) 17 gram packet 09-07 00:00: 00 10-06 23:59 :00 Yes 17g Q.5D Take 17 g by mouth 2 (two) times daily for 30 days. [facility] gabapentin (NEURONTIN) 400 MG capsule 09-07 00:00: 00 10-06 23:59 :00 Yes 400mg Q.[id number] 3D Take 1 capsule (400 mg total) by mouth 3 (three) times daily for 30 days. [facility] furosemide (LASIX) 20 MG tablet - 00:00: 00 10-06 23:59 :00 Yes 20mg QD Take 1 tablet (20 mg total) by mouth daily for 30 days. [facility] fluticasone -umeclidin- vilanter (Trelegy Ellipta) 200-62.5-25 mcg DsDv - 00:00: 00 10-06 23:59 :00 Yes 1{inhal ation} QD Inhale 1 Inhalation by mouth via inhaler daily for 30 days. [facility] albuterol HFA (VENTOLIN HFA) 90 mcg/actuati on inhaler 09-07 00:00: 00 10-06 23:59 :00 Yes 1{puff} Inhale 1 puff by mouth via inhaler every 6 (six) hours as needed for Wheezing for up to 30 days. [facility] metoprolol succinate (TOPROL-XL) 25 MG 24 hr tablet - 00:00: 00 10-06 23:59 :00 Yes 25mg QD Take 1 tablet (25 mg total) by mouth daily for 30 days. [facility] baclofen (LIORESAL) 5 mg Tab - 00:00: 00 10-06 23:59 :00 Yes 5mg QD Take 1 tablet (5 mg total) by mouth nightly for 30 days. [facility] tamsulosin (FLOMAX) 0.4 mg Cap 24 hr capsule - 00:00: 00 10-06 23:59 :00 Yes .4mg QD Take 1 capsule (0.4 mg total) by mouth daily for 30 days. [facility] senna-docus ate (SENOKOT S) 8.6-50 mg per tablet 09-07 00:00: 00 10-06 23:59 :00 Yes 2{tbl} Q.5D Take 2 tablets by mouth 2 (two) times daily for 30 days. [facility] polyethylen e glycol (GLYCOLAX) 17 gram packet 09-07 00:00: 00 10-06 23:59 :00 Yes 17g Q.5D Take 17 g by mouth 2 (two) times daily for 30 days. [facility] gabapentin (NEURONTIN) 400 MG capsule 09-07 00:00: 00 10-06 23:59 :00 Yes 400mg Q.[id number] 3D Take 1 capsule (400 mg total) by mouth 3 (three) times daily for 30 days. [facility] furosemide (LASIX) 20 MG tablet 09-07 00:00: 00 10-06 23:59 :00 Yes 20mg QD Take 1 tablet (20 mg total) by mouth daily for 30 days. [facility] fluticasone -umeclidin- vilanter (Trelegy Ellipta) 200-62.5-25 mcg DsDv 09-07 00:00: 00 10-06 23:59 :00 Yes 1{inhal ation} QD Inhale 1 Inhalation by mouth via inhaler daily for 30 days. [facility] albuterol HFA (VENTOLIN HFA) 90 mcg/actuati on inhaler 09-07 00:00: 00 10-06 23:59 :00 Yes 1{puff} Inhale 1 puff by mouth via inhaler every 6 (six) hours as needed for Wheezing for up to 30 days. [facility] metoprolol succinate (TOPROL-XL) 25 MG 24 hr tablet 09-07 00:00: 00 10-06 23:59 :00 Yes 25mg QD Take 1 tablet (25 mg total) by mouth daily for 30 days. [facility] baclofen (LIORESAL) 5 mg Tab 2- 00:00: 00 10-06 23:59 :00 Yes 5mg QD Take 1 tablet (5 mg total) by mouth nightly for 30 days. [facility] tamsulosin (FLOMAX) 0.4 mg Cap 24 hr capsule - 00:00: 00 10-06 23:59 :00 Yes .4mg QD Take 1 capsule (0.4 mg total) by mouth daily for 30 days. [facility] senna-docus ate (SENOKOT S) 8.6-50 mg per tablet - 00:00: 00 10-06 23:59 :00 Yes 2{tbl} Q.5D Take 2 tablets by mouth 2 (two) times daily for 30 days. [facility] polyethylen e glycol (GLYCOLAX) 17 gram packet 09-07 00:00: 00 10-06 23:59 :00 Yes 17g Q.5D Take 17 g by mouth 2 (two) times daily for 30 days. [facility] gabapentin (NEURONTIN) 400 MG capsule 09-07 00:00: 00 10-06 23:59 :00 Yes 400mg Q.[id number] 3D Take 1 capsule (400 mg total) by mouth 3 (three) times daily for 30 days. [facility] furosemide (LASIX) 20 MG tablet 09-07 00:00: 00 10-06 23:59 :00 Yes 20mg QD Take 1 tablet (20 mg total) by mouth daily for 30 days. [facility] fluticasone -umeclidin- vilanter (Trelegy Ellipta) 200-62.5-25 mcg DsDv - 00:00: 00 10-06 23:59 :00 Yes 1{inhal ation} QD Inhale 1 Inhalation by mouth via inhaler daily for 30 days. [facility] albuterol HFA (VENTOLIN HFA) 90 mcg/actuati on inhaler - 00:00: 00 10-06 23:59 :00 Yes 1{puff} Inhale 1 puff by mouth via inhaler every 6 (six) hours as needed for Wheezing for up to 30 days. [facility] metoprolol succinate (TOPROL-XL) 25 MG 24 hr tablet 09-07 00:00: 00 10-06 23:59 :00 Yes 25mg QD Take 1 tablet (25 mg total) by mouth daily for 30 days. [facility] baclofen (LIORESAL) 5 mg Tab 09-07 00:00: 00 10-06 23:59 :00 Yes 5mg QD Take 1 tablet (5 mg total) by mouth nightly for 30 days. [facility] tamsulosin (FLOMAX) 0.4 mg Cap 24 hr capsule 09-07 00:00: 00 10-06 23:59 :00 Yes .4mg QD Take 1 capsule (0.4 mg total) by mouth daily for 30 days. [facility] senna-docus ate (SENOKOT S) 8.6-50 mg per tablet 09-07 00:00: 00 10-06 23:59 :00 Yes 2{tbl} Q.5D Take 2 tablets by mouth 2 (two) times daily for 30 days. [facility] polyethylen e glycol (GLYCOLAX) 17 gram packet 09-07 00:00: 00 10-06 23:59 :00 Yes 17g Q.5D Take 17 g by mouth 2 (two) times daily for 30 days. [facility] gabapentin (NEURONTIN) 400 MG capsule 09-07 00:00: 00 10-06 23:59 :00 Yes 400mg Q.[id number] 3D Take 1 capsule (400 mg total) by mouth 3 (three) times daily for 30 days. [facility] furosemide (LASIX) 20 MG tablet 09-07 00:00: 00 10-06 23:59 :00 Yes 20mg QD Take 1 tablet (20 mg total) by mouth daily for 30 days. [facility] fluticasone -umeclidin- vilanter (Trelegy Ellipta) 200-62.5-25 mcg DsDv 09-07 00:00: 00 10-06 23:59 :00 Yes 1{inhal ation} QD Inhale 1 Inhalation by mouth via inhaler daily for 30 days. [facility] albuterol HFA (VENTOLIN HFA) 90 mcg/actuati on inhaler 09-07 00:00: 00 10-06 23:59 :00 Yes 1{puff} Inhale 1 puff by mouth via inhaler every 6 (six) hours as needed for Wheezing for up to 30 days. [facility] metoprolol succinate (TOPROL-XL) 25 MG 24 hr tablet 09-07 00:00: 00 10-06 23:59 :00 Yes 25mg QD Take 1 tablet (25 mg total) by mouth daily for 30 days. [facility] baclofen (LIORESAL) 5 mg Tab 09-07 00:00: 00 10-06 23:59 :00 Yes 5mg QD Take 1 tablet (5 mg total) by mouth nightly for 30 days. [facility] lacosamide (VIMPAT) 100 mg in NaCl 0.9% (NS) 50 mL piggyback 08-12 21:15: 00 08-12 21:23 :00 No 100mg 100 mg, IV Piggyback, ONCE, 1 dose, On Thu08/12/23 at 1515, Administer over 30 Minutes, 50 mL
Facu lty member approving Restricted medication : BRIAN BRYAN [facility] Dicyclomine HCl 20 MG oral Tablet [...] total) by mouth daily for 5 days. [facility] tamsulosin (FLOMAX) 0.4 mg Cap 24 hr capsule 2022-07 00:00: 00 06-22 23:59 :00 No .4mg QD Take 1 capsule (0.4 mg total) by mouth daily for 5 days. [facility] tamsulosin (FLOMAX) 0.4 mg Cap 24 hr capsule 2022-07 00:00: 00 06-22 23:59 :00 No .4mg QD Take 1 capsule (0.4 mg total) by mouth daily for 5 days. [facility] tamsulosin (FLOMAX) 0.4 mg Cap 24 hr capsule 2022-07 00:00: 00 06-22 23:59 :00 No .4mg QD Take 1 capsule (0.4 mg total) by mouth daily for 5 days. [facility] tamsulosin (FLOMAX) 0.4 mg Cap 24 hr capsule 2022-07 00:00: 00 06-22 23:59 :00 No .4mg QD Take 1 capsule (0.4 mg total) by mouth daily for 5 days. [facility] tamsulosin (FLOMAX) 0.4 mg Cap 24 hr capsule 2022-07 00:00: 00 06-22 23:59 :00 No .4mg QD Take 1 capsule (0.4 mg total) by mouth daily for 5 days. [facility] tamsulosin (FLOMAX) 0.4 mg Cap 24 hr capsule 2022-07 00:00: 00 06-22 23:59 :00 No .4mg QD Take 1 capsule (0.4 mg total) by mouth daily for 5 days. [facility] tamsulosin (FLOMAX) 0.4 mg Cap 24 hr capsule 2022-07 00:00: 00 06-22 23:59 :00 No .4mg QD Take 1 capsule (0.4 mg total) by mouth daily for 5 days. [facility] tamsulosin (FLOMAX) 0.4 mg Cap 24 hr capsule 2022-07 00:00: 00 06-22 23:59 :00 No .4mg QD Take 1 capsule (0.4 mg total) by mouth daily for 5 days. [facility] tamsulosin (FLOMAX) 0.4 mg Cap 24 hr capsule 2022-07 00:00: 00 06-22 23:59 :00 No .4mg QD Take 1 capsule (0.4 mg total) by mouth daily for 5 days. [facility] tamsulosin (FLOMAX) 0.4 mg Cap 24 hr capsule 2022-07 00:00: 00 06-22 23:59 :00 No .4mg QD Take 1 capsule (0.4 mg total) by mouth daily for 5 days. [facility] tamsulosin (FLOMAX) 0.4 mg Cap 24 hr capsule 2022-07 00:00: 00 06-22 23:59 :00 No .4mg QD Take 1 capsule (0.4 mg total) by mouth daily for 5 days. [facility] tamsulosin (FLOMAX) 0.4 mg Cap 24 hr capsule 2022-07 00:00: 00 06-22 23:59 :00 No .4mg QD Take 1 capsule (0.4 mg total) by mouth daily for 5 days. [facility] tamsulosin (FLOMAX) 0.4 mg Cap 24 hr capsule 2022-07 00:00: 00 06-22 23:59 :00 No .4mg QD Take 1 capsule (0.4 mg total) by mouth daily for 5 days. [facility] tamsulosin (FLOMAX) 0.4 mg Cap 24 hr capsule 2022-07 00:00: 00 06-22 23:59 :00 No .4mg QD Take 1 capsule (0.4 mg total) by mouth daily for 5 days. [facility] tamsulosin (FLOMAX) 0.4 mg Cap 24 hr capsule 2022-07 00:00: 06-22 23:59 :00 No .4mg QD Take 1 capsule (0.4 mg total) by mouth daily for 5 days. [facility] tamsulosin (FLOMAX) 0.4 mg Cap 24 hr capsule 2022-07 00:00: 00 06-22 23:59 :00 No .4mg QD Take 1 capsule (0.4 mg total) by mouth daily for 5 days. [facility] tamsulosin (FLOMAX) 0.4 mg Cap 24 hr capsule 2022-07 00:00: 00 06-22 23:59 :00 No .4mg QD Take 1 capsule (0.4 mg total) by mouth daily for 5 days. [facility] tamsulosin (FLOMAX) 0.4 mg Cap 24 hr capsule 2022-07 00:00: 00 06-22 23:59 :00 No .4mg QD Take 1 capsule (0.4 mg total) by mouth daily for 5 days. [facility] tamsulosin (FLOMAX) 0.4 mg Cap 24 hr capsule 2022-07 00:00: 00 06-22 23:59 :00 No .4mg QD Take 1 capsule (0.4 mg total) by mouth daily for 5 days. [facility] tamsulosin (FLOMAX) 0.4 mg Cap 24 hr capsule 2022-07 00:00: 00 06-22 23:59 :00 No .4mg QD Take 1 capsule (0.4 mg total) by mouth daily for 5 days. [facility] tamsulosin (FLOMAX) 0.4 mg Cap 24 hr capsule 2022-07 00:00: 00 06-22 23:59 :00 No .4mg QD Take 1 capsule (0.4 mg total) by mouth daily for 5 days. [facility] tamsulosin (FLOMAX) 0.4 mg Cap 24 hr capsule 2022-07 00:00: 00 06-22 23:59 :00 No .4mg QD Take 1 capsule (0.4 mg total) by mouth daily for 5 days. [facility] tamsulosin (FLOMAX) 0.4 mg Cap 24 hr capsule 2022-07 00:00: 00 06-22 23:59 :00 No .4mg QD Take 1 capsule (0.4 mg total) by mouth daily for 5 days. [facility] tamsulosin (FLOMAX) 0.4 mg Cap 24 hr capsule 2022-07 00:00: 00 06-22 23:59 :00 No .4mg QD Take 1 capsule (0.4 mg total) by mouth daily for 5 days. [facility] tamsulosin (FLOMAX) 0.4 mg Cap 24 hr capsule 2022-07 00:00: 00 06-22 23:59 :00 No .4mg QD Take 1 capsule (0.4 mg total) by mouth daily for 5 days. [facility] tamsulosin (FLOMAX) 0.4 mg Cap 24 hr capsule 2022-07 00:00: 00 06-22 23:59 :00 No .4mg QD Take 1 capsule (0.4 mg total) by mouth daily for 5 days. [facility] tamsulosin (FLOMAX) 0.4 mg Cap 24 hr capsule 2022-07 00:00: 00 06-22 23:59 :00 No .4mg QD Take 1 capsule (0.4 mg total) by mouth daily for 5 days. [facility] tamsulosin (FLOMAX) 0.4 mg Cap 24 hr capsule 2022-07 00:00: 00 06-22 23:59 :00 No .4mg QD Take 1 capsule (0.4 mg total) by mouth daily for 5 days. [facility] metoprolol succinate (TOPROL-XL) 25 MG 24 hr tablet 2022-07 19:45: 32 Yes 25mg QD Take 1 tablet (25 mg total) by mouth daily. [facility] varenicline (CHANTIX) 1 mg tablet 2022-07 19:45: 32 Yes 1mg Q.5D Take 1 tablet (1 mg total) by mouth 2 (two) times daily Give with meals and with a full glass of water.. [facility] albuterol HFA (VENTOLIN HFA) 90 mcg/actuati on inhaler 2022-07 19:45: 32 Yes 1{puff} Inhale 1 puff by mouth via inhaler every 6 (six) hours as needed for Wheezing. [facility] fluticasone -umeclidin- vilanter (Trelegy Ellipta) 200-62.5-25 mcg DsDv 2022-07 19:45: 32 Yes QD Inhale by mouth via inhaler daily. [facility] atorvastati n (LIPITOR) 20 MG tablet 2022-07 19:45: 32 Yes 20mg QD Take 1 tablet (20 mg total) by mouth daily. [facility] metoprolol succinate (TOPROL-XL) 25 MG 24 hr tablet 2022-07 19:45: 32 Yes 25mg QD Take 1 tablet (25 mg total) by mouth daily. [facility] varenicline (CHANTIX) 1 mg tablet 2022-07 19:45: 32 Yes 1mg Q.5D Take 1 tablet (1 mg total) by mouth 2 (two) times daily Give with meals and with a full glass of water.. [facility] albuterol HFA (VENTOLIN HFA) 90 mcg/actuati on inhaler 2022-07 19:45: 32 Yes 1{puff} Inhale 1 puff by mouth via inhaler every 6 (six) hours as needed for Wheezing. [facility] fluticasone -umeclidin- vilanter (Trelegy Ellipta) 200-62.5-25 mcg DsDv 2022-07 19:45: 32 Yes QD Inhale by mouth via inhaler daily. [facility] atorvastati n (LIPITOR) 20 MG tablet 2022-07 19:45: 32 Yes 20mg QD Take 1 tablet (20 mg total) by mouth daily. [facility] metoprolol succinate (TOPROL-XL) 25 MG 24 hr tablet 2022-07 19:45: 32 Yes 25mg QD Take 1 tablet (25 mg total) by mouth daily. [facility] varenicline (CHANTIX) 1 mg tablet 2022-07 19:45: 32 Yes 1mg Q.5D Take 1 tablet (1 mg total) by mouth 2 (two) times daily Give with meals and with a full glass of water.. [facility] albuterol HFA (VENTOLIN HFA) 90 mcg/actuati on inhaler 2022-07 19:45: 32 Yes 1{puff} Inhale 1 puff by mouth via inhaler every 6 (six) hours as needed for Wheezing. [facility] fluticasone -umeclidin- vilanter (Trelegy Ellipta) 200-62.5-25 mcg DsDv 2022-07 19:45: 32 Yes QD Inhale by mouth via inhaler daily. [facility] atorvastati n (LIPITOR) 20 MG tablet 2022-07 19:45: 32 Yes 20mg QD Take 1 tablet (20 mg total) by mouth daily. [facility] metoprolol succinate (TOPROL-XL) 25 MG 24 hr tablet 2022-07 19:45: 32 Yes 25mg QD Take 1 tablet (25 mg total) by mouth daily. [facility] varenicline (CHANTIX) 1 mg tablet 2022-07 19:45: 32 Yes 1mg Q.5D Take 1 tablet (1 mg total) by mouth 2 (two) times daily Give with meals and with a full glass of water.. [facility] albuterol HFA (VENTOLIN HFA) 90 mcg/actuati on inhaler 2022-07 19:45: 32 Yes 1{puff} Inhale 1 puff by mouth via inhaler every 6 (six) hours as needed for Wheezing. [facility] fluticasone -umeclidin- vilanter (Trelegy Ellipta) 200-62.5-25 mcg DsDv 2022-07 19:45: 32 Yes QD Inhale by mouth via inhaler daily. [facility] atorvastati n (LIPITOR) 20 MG tablet 2022-07 19:45: 32 Yes 20mg QD Take 1 tablet (20 mg total) by mouth daily. [facility] metoprolol succinate (TOPROL-XL) 25 MG 24 hr tablet 2022-07 19:45: 32 Yes 25mg QD Take 1 tablet (25 mg total) by mouth daily. [facility] varenicline (CHANTIX) 1 mg tablet 2022-07 19:45: 32 Yes 1mg Q.5D Take 1 tablet (1 mg total) by mouth 2 (two) times daily Give with meals and with a full glass of water.. [facility] albuterol HFA (VENTOLIN HFA) 90 mcg/actuati on inhaler 2022-07 19:45: 32 Yes 1{puff} Inhale 1 puff by mouth via inhaler every 6 (six) hours as needed for Wheezing. [facility] fluticasone -umeclidin- vilanter (Trelegy Ellipta) 200-62.5-25 mcg DsDv 2022-07 19:45: 32 Yes QD Inhale by mouth via inhaler daily. [facility] atorvastati n (LIPITOR) 20 MG tablet 2022-07 19:45: 32 Yes 20mg QD Take 1 tablet (20 mg total) by mouth daily. [facility] metoprolol succinate (TOPROL-XL) 25 MG 24 hr tablet 2022-07 19:45: 32 Yes 25mg QD Take 1 tablet (25 mg total) by mouth daily. [facility] varenicline (CHANTIX) 1 mg tablet 2022-07 19:45: 32 Yes 1mg Q.5D Take 1 tablet (1 mg total) by mouth 2 (two) times daily Give with meals and with a full glass of water.. [facility] albuterol HFA (VENTOLIN HFA) 90 mcg/actuati on inhaler 2022-07 19:45: 32 Yes 1{puff} Inhale 1 puff by mouth via inhaler every 6 (six) hours as needed for Wheezing. [facility] fluticasone -umeclidin- vilanter (Trelegy Ellipta) 200-62.5-25 mcg DsDv 2022-07 19:45: 32 Yes QD Inhale by mouth via inhaler daily. [facility] atorvastati n (LIPITOR) 20 MG tablet 2022-07 19:45: 32 Yes 20mg QD Take 1 tablet (20 mg total) by mouth daily. [facility] metoprolol succinate (TOPROL-XL) 25 MG 24 hr tablet 2022-07 19:45: 32 Yes 25mg QD Take 1 tablet (25 mg total) by mouth daily. [facility] varenicline (CHANTIX) 1 mg tablet 2022-07 19:45: 32 Yes 1mg Q.5D Take 1 tablet (1 mg total) by mouth 2 (two) times daily Give with meals and with a full glass of water.. [facility] albuterol HFA (VENTOLIN HFA) 90 mcg/actuati on inhaler 2022-07 19:45: 32 Yes 1{puff} Inhale 1 puff by mouth via inhaler every 6 (six) hours as needed for Wheezing. [facility] fluticasone -umeclidin- vilanter (Trelegy Ellipta) 200-62.5-25 mcg DsDv 2022-07 19:45: 32 Yes QD Inhale by mouth via inhaler daily. [facility] atorvastati n (LIPITOR) 20 MG tablet 2022-07 19:45: 32 Yes 20mg QD Take 1 tablet (20 mg total) by mouth daily. [facility] metoprolol succinate (TOPROL-XL) 25 MG 24 hr tablet 2022-07 19:45: 32 Yes 25mg QD Take 1 tablet (25 mg total) by mouth daily. [facility] varenicline (CHANTIX) 1 mg tablet 2022-07 19:45: 32 Yes 1mg Q.5D Take 1 tablet (1 mg total) by mouth 2 (two) times daily Give with meals and with a full glass of water.. [facility] albuterol HFA (VENTOLIN HFA) 90 mcg/actuati on inhaler 2022-07 19:45: 32 Yes 1{puff} Inhale 1 puff by mouth via inhaler every 6 (six) hours as needed for Wheezing. [facility] fluticasone -umeclidin- vilanter (Trelegy Ellipta) 200-62.5-25 mcg DsDv 2022-07 19:45: 32 Yes QD Inhale by mouth via inhaler daily. [facility] atorvastati n (LIPITOR) 20 MG tablet 2022-07 19:45: 32 Yes 20mg QD Take 1 tablet (20 mg total) by mouth daily. [facility] metoprolol succinate (TOPROL-XL) 25 MG 24 hr tablet 2022-07 19:45: 32 Yes 25mg QD Take 1 tablet (25 mg total) by mouth daily. [facility] varenicline (CHANTIX) 1 mg tablet 2022-07 19:45: 32 Yes 1mg Q.5D Take 1 tablet (1 mg total) by mouth 2 (two) times daily Give with meals and with a full glass of water.. [facility] albuterol HFA (VENTOLIN HFA) 90 mcg/actuati on inhaler 2022-07 19:45: 32 Yes 1{puff} Inhale 1 puff by mouth via inhaler every 6 (six) hours as needed for Wheezing. [facility] fluticasone -umeclidin- vilanter (Trelegy Ellipta) 200-62.5-25 mcg DsDv 2022-07 19:45: 32 Yes QD Inhale by mouth via inhaler daily. [facility] atorvastati n (LIPITOR) 20 MG tablet 2022-07 19:45: 32 Yes 20mg QD Take 1 tablet (20 mg total) by mouth daily. [facility] metoprolol succinate (TOPROL-XL) 25 MG 24 hr tablet 2022-07 19:45: 32 Yes 25mg QD Take 1 tablet (25 mg total) by mouth daily. [facility] varenicline (CHANTIX) 1 mg tablet 2022-07 19:45: 32 Yes 1mg Q.5D Take 1 tablet (1 mg total) by mouth 2 (two) times daily Give with meals and with a full glass of water.. [facility] albuterol HFA (VENTOLIN HFA) 90 mcg/actuati on inhaler 2022-07 19:45: 32 Yes 1{puff} Inhale 1 puff by mouth via inhaler every 6 (six) hours as needed for Wheezing. [facility] fluticasone -umeclidin- vilanter (Trelegy Ellipta) 200-62.5-25 mcg DsDv 2022-07 19:45: 32 Yes QD Inhale by mouth via inhaler daily. [facility] atorvastati n (LIPITOR) 20 MG tablet 2022-07 19:45: 32 Yes 20mg QD Take 1 tablet (20 mg total) by mouth daily. [facility] metoprolol succinate (TOPROL-XL) 25 MG 24 hr tablet 2022-07 19:45: 32 Yes 25mg QD Take 1 tablet (25 mg total) by mouth daily. [facility] varenicline (CHANTIX) 1 mg tablet 2022-07 19:45: 32 Yes 1mg Q.5D Take 1 tablet (1 mg total) by mouth 2 (two) times daily Give with meals and with a full glass of water.. [facility] albuterol HFA (VENTOLIN HFA) 90 mcg/actuati on inhaler 2022-07 19:45: 32 Yes 1{puff} Inhale 1 puff by mouth via inhaler every 6 (six) hours as needed for Wheezing. [facility] fluticasone -umeclidin- vilanter (Trelegy Ellipta) 200-62.5-25 mcg DsDv 2022-07 19:45: 32 Yes QD Inhale by mouth via inhaler daily. [facility] atorvastati n (LIPITOR) 20 MG tablet 2022-07 19:45: 32 Yes 20mg QD Take 1 tablet (20 mg total) by mouth daily. [facility] metoprolol succinate (TOPROL-XL) 25 MG 24 hr tablet 2022-07 19:45: 32 Yes 25mg QD Take 1 tablet (25 mg total) by mouth daily. [facility] varenicline (CHANTIX) 1 mg tablet 2022-07 19:45: 32 Yes 1mg Q.5D Take 1 tablet (1 mg total) by mouth 2 (two) times daily Give with meals and with a full glass of water.. [facility] albuterol HFA (VENTOLIN HFA) 90 mcg/actuati on inhaler 2022-07 19:45: 32 Yes 1{puff} Inhale 1 puff by mouth via inhaler every 6 (six) hours as needed for Wheezing. [facility] fluticasone -umeclidin- vilanter (Trelegy Ellipta) 200-62.5-25 mcg DsDv 2022-07 19:45: 32 Yes QD Inhale by mouth via inhaler daily. [facility] atorvastati n (LIPITOR) 20 MG tablet 2022-07 19:45: 32 Yes 20mg QD Take 1 tablet (20 mg total) by mouth daily. [facility] metoprolol succinate (TOPROL-XL) 25 MG 24 hr tablet 2022-07 19:45: 32 Yes 25mg QD Take 1 tablet (25 mg total) by mouth daily. [facility] varenicline (CHANTIX) 1 mg tablet 2022-07 19:45: 32 Yes 1mg Q.5D Take 1 tablet (1 mg total) by mouth 2 (two) times daily Give with meals and with a full glass of water.. [facility] albuterol HFA (VENTOLIN HFA) 90 mcg/actuati on inhaler 2022-07 19:45: 32 Yes 1{puff} Inhale 1 puff by mouth via inhaler every 6 (six) hours as needed for Wheezing. [facility] fluticasone -umeclidin- vilanter (Trelegy Ellipta) 200-62.5-25 mcg DsDv 2022-07 19:45: 32 Yes QD Inhale by mouth via inhaler daily. [facility] atorvastati n (LIPITOR) 20 MG tablet 2022-07 19:45: 32 Yes 20mg QD Take 1 tablet (20 mg total) by mouth daily. [facility] metoprolol succinate (TOPROL-XL) 25 MG 24 hr tablet 2022-07 19:45: 32 Yes 25mg QD Take 1 tablet (25 mg total) by mouth daily. [facility] varenicline (CHANTIX) 1 mg tablet 2022-07 19:45: 32 Yes 1mg Q.5D Take 1 tablet (1 mg total) by mouth 2 (two) times daily Give with meals and with a full glass of water.. [facility] albuterol HFA (VENTOLIN HFA) 90 mcg/actuati on inhaler 2022-07 19:45: 32 Yes 1{puff} Inhale 1 puff by mouth via inhaler every 6 (six) hours as needed for Wheezing. [facility] fluticasone -umeclidin- vilanter (Trelegy Ellipta) 200-62.5-25 mcg DsDv 2022-07 19:45: 32 Yes QD Inhale by mouth via inhaler daily. [facility] atorvastati n (LIPITOR) 20 MG tablet 2022-07 19:45: 32 Yes 20mg QD Take 1 tablet (20 mg total) by mouth daily. [facility] metoprolol succinate (TOPROL-XL) 25 MG 24 hr tablet 2022-07 19:45: 32 Yes 25mg QD Take 1 tablet (25 mg total) by mouth daily. [facility] varenicline (CHANTIX) 1 mg tablet 2022-07 19:45: 32 Yes 1mg Q.5D Take 1 tablet (1 mg total) by mouth 2 (two) times daily Give with meals and with a full glass of water.. [facility] albuterol HFA (VENTOLIN HFA) 90 mcg/actuati on inhaler 2022-07 19:45: 32 Yes 1{puff} Inhale 1 puff by mouth via inhaler every 6 (six) hours as needed for Wheezing. [facility] fluticasone -umeclidin- vilanter (Trelegy Ellipta) 200-62.5-25 mcg DsDv 2022-07 19:45: 32 Yes QD Inhale by mouth via inhaler daily. [facility] atorvastati n (LIPITOR) 20 MG tablet 2022-07 19:45: 32 Yes 20mg QD Take 1 tablet (20 mg total) by mouth daily. [facility] metoprolol succinate (TOPROL-XL) 25 MG 24 hr tablet 2022-07 19:45: 32 Yes 25mg QD Take 1 tablet (25 mg total) by mouth daily. [facility] varenicline (CHANTIX) 1 mg tablet 2022-07 19:45: 32 Yes 1mg Q.5D Take 1 tablet (1 mg total) by mouth 2 (two) times daily Give with meals and with a full glass of water.. [facility] albuterol HFA (VENTOLIN HFA) 90 mcg/actuati on inhaler 2022-07 19:45: 32 Yes 1{puff} Inhale 1 puff by mouth via inhaler every 6 (six) hours as needed for Wheezing. [facility] fluticasone -umeclidin- vilanter (Trelegy Ellipta) 200-62.5-25 mcg DsDv 2022-07 19:45: 32 Yes QD Inhale by mouth via inhaler daily. [facility] atorvastati n (LIPITOR) 20 MG tablet 2022-07 19:45: 32 Yes 20mg QD Take 1 tablet (20 mg total) by mouth daily. [facility] metoprolol succinate (TOPROL-XL) 25 MG 24 hr tablet 2022-07 19:45: 32 Yes 25mg QD Take 1 tablet (25 mg total) by mouth daily. [facility] varenicline (CHANTIX) 1 mg tablet 2022-07 19:45: 32 Yes 1mg Q.5D Take 1 tablet (1 mg total) by mouth 2 (two) times daily Give with meals and with a full glass of water.. [facility] albuterol HFA (VENTOLIN HFA) 90 mcg/actuati on inhaler 2022-07 19:45: 32 Yes 1{puff} Inhale 1 puff by mouth via inhaler every 6 (six) hours as needed for Wheezing. [facility] fluticasone -umeclidin- vilanter (Trelegy Ellipta) 200-62.5-25 mcg DsDv 2022-07 19:45: 32 Yes QD Inhale by mouth via inhaler daily. [facility] atorvastati n (LIPITOR) 20 MG tablet 2022-07 19:45: 32 Yes 20mg QD Take 1 tablet (20 mg total) by mouth daily. [facility] metoprolol succinate (TOPROL-XL) 25 MG 24 hr tablet 2022-07 19:45: 32 Yes 25mg QD Take 1 tablet (25 mg total) by mouth daily. [facility] varenicline (CHANTIX) 1 mg tablet 2022-07 19:45: 32 Yes 1mg Q.5D Take 1 tablet (1 mg total) by mouth 2 (two) times daily Give with meals and with a full glass of water.. [facility] albuterol HFA (VENTOLIN HFA) 90 mcg/actuati on inhaler 2022-07 19:45: 32 Yes 1{puff} Inhale 1 puff by mouth via inhaler every 6 (six) hours as needed for Wheezing. [facility] fluticasone -umeclidin- vilanter (Trelegy Ellipta) 200-62.5-25 mcg DsDv 2022-07 19:45: 32 Yes QD Inhale by mouth via inhaler daily. [facility] atorvastati n (LIPITOR) 20 MG tablet 2022-07 19:45: 32 Yes 20mg QD Take 1 tablet (20 mg total) by mouth daily. [facility] metoprolol succinate (TOPROL-XL) 25 MG 24 hr tablet 2022-07 19:45: 32 Yes 25mg QD Take 1 tablet (25 mg total) by mouth daily. [facility] varenicline (CHANTIX) 1 mg tablet 2022-07 19:45: 32 Yes 1mg Q.5D Take 1 tablet (1 mg total) by mouth 2 (two) times daily Give with meals and with a full glass of water.. [facility] albuterol HFA (VENTOLIN HFA) 90 mcg/actuati on inhaler 2022-07 19:45: 32 Yes 1{puff} Inhale 1 puff by mouth via inhaler every 6 (six) hours as needed for Wheezing. [facility] fluticasone -umeclidin- vilanter (Trelegy Ellipta) 200-62.5-25 mcg DsDv 2022-07 19:45: 32 Yes QD Inhale by mouth via inhaler daily. [facility] atorvastati n (LIPITOR) 20 MG tablet 2022-07 19:45: 32 Yes 20mg QD Take 1 tablet (20 mg total) by mouth daily. [facility] metoprolol succinate (TOPROL-XL) 25 MG 24 hr tablet 2022-07 19:45: 32 Yes 25mg QD Take 1 tablet (25 mg total) by mouth daily. [facility] varenicline (CHANTIX) 1 mg tablet 2022-07 19:45: 32 Yes 1mg Q.5D Take 1 tablet (1 mg total) by mouth 2 (two) times daily Give with meals and with a full glass of water.. [facility] albuterol HFA (VENTOLIN HFA) 90 mcg/actuati on inhaler 2022-07 19:45: 32 Yes 1{puff} Inhale 1 puff by mouth via inhaler every 6 (six) hours as needed for Wheezing. [facility] fluticasone -umeclidin- vilanter (Trelegy Ellipta) 200-62.5-25 mcg DsDv 2022-07 19:45: 32 Yes QD Inhale by mouth via inhaler daily. [facility] atorvastati n (LIPITOR) 20 MG tablet 2022-07 19:45: 32 Yes 20mg QD Take 1 tablet (20 mg total) by mouth daily. [facility] metoprolol succinate (TOPROL-XL) 25 MG 24 hr tablet 2022-07 19:45: 32 Yes 25mg QD Take 1 tablet (25 mg total) by mouth daily. [facility] varenicline (CHANTIX) 1 mg tablet 2022-07 19:45: 32 Yes 1mg Q.5D Take 1 tablet (1 mg total) by mouth 2 (two) times daily Give with meals and with a full glass of water.. [facility] albuterol HFA (VENTOLIN HFA) 90 mcg/actuati on inhaler 2022-07 19:45: 32 Yes 1{puff} Inhale 1 puff by mouth via inhaler every 6 (six) hours as needed for Wheezing. [facility] fluticasone -umeclidin- vilanter (Trelegy Ellipta) 200-62.5-25 mcg DsDv 2022-07 19:45: 32 Yes QD Inhale by mouth via inhaler daily. [facility] atorvastati n (LIPITOR) 20 MG tablet 2022-07 19:45: 32 Yes 20mg QD Take 1 tablet (20 mg total) by mouth daily. [facility] metoprolol succinate (TOPROL-XL) 25 MG 24 hr tablet 2022-07 19:45: 32 Yes 25mg QD Take 1 tablet (25 mg total) by mouth daily. [facility] varenicline (CHANTIX) 1 mg tablet 2022-07 19:45: 32 Yes 1mg Q.5D Take 1 tablet (1 mg total) by mouth 2 (two) times daily Give with meals and with a full glass of water.. [facility] albuterol HFA (VENTOLIN HFA) 90 mcg/actuati on inhaler 2022-07 19:45: 32 Yes 1{puff} Inhale 1 puff by mouth via inhaler every 6 (six) hours as needed for Wheezing. [facility] fluticasone -umeclidin- vilanter (Trelegy Ellipta) 200-62.5-25 mcg DsDv 2022-07 19:45: 32 Yes QD Inhale by mouth via inhaler daily. [facility] atorvastati n (LIPITOR) 20 MG tablet 2022-07 19:45: 32 Yes 20mg QD Take 1 tablet (20 mg total) by mouth daily. [facility] metoprolol succinate (TOPROL-XL) 25 MG 24 hr tablet 2022-07 19:45: 32 Yes 25mg QD Take 1 tablet (25 mg total) by mouth daily. [facility] varenicline (CHANTIX) 1 mg tablet 2022-07 19:45: 32 Yes 1mg Q.5D Take 1 tablet (1 mg total) by mouth 2 (two) times daily Give with meals and with a full glass of water.. [facility] albuterol HFA (VENTOLIN HFA) 90 mcg/actuati on inhaler 2022-07 19:45: 32 Yes 1{puff} Inhale 1 puff by mouth via inhaler every 6 (six) hours as needed for Wheezing. [facility] fluticasone -umeclidin- vilanter (Trelegy Ellipta) 200-62.5-25 mcg DsDv 2022-07 19:45: 32 Yes QD Inhale by mouth via inhaler daily. [facility] atorvastati n (LIPITOR) 20 MG tablet 2022-07 19:45: 32 Yes 20mg QD Take 1 tablet (20 mg total) by mouth daily. [facility] acetaminoph en-codeine (TYLENOL #3) 300-30 mg per tablet 2022-07 18:02: 00 06-16 00:00 :00 No 1{tbl} Take 1 tablet by mouth every 4 (four) hours as needed for Pain. [facility] acetaminoph en-codeine (TYLENOL #3) 300-30 mg per tablet 2022-07 18:02: 00 06-16 00:00 :00 No 1{tbl} Take 1 tablet by mouth every 4 (four) hours as needed for Pain. [facility] acetaminoph en-codeine (TYLENOL #3) 300-30 mg per tablet 2022-07 18:02: 00 06-16 00:00 :00 No 1{tbl} Take 1 tablet by mouth every 4 (four) hours as needed for Pain. [facility] acetaminoph en-codeine (TYLENOL #3) 300-30 mg per tablet 2022-07 18:02: 00 06-16 00:00 :00 No 1{tbl} Take 1 tablet by mouth every 4 (four) hours as needed for Pain. [facility] acetaminoph en-codeine (TYLENOL #3) 300-30 mg per tablet 2022-07 18:02: 00 06-16 00:00 :00 No 1{tbl} Take 1 tablet by mouth every 4 (four) hours as needed for Pain. [facility] acetaminoph en-codeine (TYLENOL #3) 300-30 mg per tablet 2022-07 18:02: 00 06-16 00:00 :00 No 1{tbl} Take 1 tablet by mouth every 4 (four) hours as needed for Pain. [facility] acetaminoph en-codeine (TYLENOL #3) 300-30 mg per tablet 2022-07 18:02: 00 06-16 00:00 :00 No 1{tbl} Take 1 tablet by mouth every 4 (four) hours as needed for Pain. [facility] acetaminoph en-codeine (TYLENOL #3) 300-30 mg per tablet 2022-07 18:02: 00 06-16 00:00 :00 No 1{tbl} Take 1 tablet by mouth every 4 (four) hours as needed for Pain. [facility] acetaminoph en-codeine (TYLENOL #3) 300-30 mg per tablet 2022-07 18:02: 00 06-16 00:00 :00 No 1{tbl} Take 1 tablet by mouth every 4 (four) hours as needed for Pain. [facility] acetaminoph en-codeine (TYLENOL #3) 300-30 mg per tablet 2022-07 18:02: 00 06-16 00:00 :00 No 1{tbl} Take 1 tablet by mouth every 4 (four) hours as needed for Pain. [facility] acetaminoph en-codeine (TYLENOL #3) 300-30 mg per tablet 2022-07 18:02: 00 06-16 00:00 :00 No 1{tbl} Take 1 tablet by mouth every 4 (four) hours as needed for Pain. [facility] acetaminoph en-codeine (TYLENOL #3) 300-30 mg per tablet 2022-07 18:02: 00 06-16 00:00 :00 No 1{tbl} Take 1 tablet by mouth every 4 (four) hours as needed for Pain. [facility] acetaminoph en-codeine (TYLENOL #3) 300-30 mg per tablet 2022-07 18:02: 00 06-16 00:00 :00 No 1{tbl} Take 1 tablet by mouth every 4 (four) hours as needed for Pain. [facility] acetaminoph en-codeine (TYLENOL #3) 300-30 mg per tablet 2022-07 18:02: 00 06-16 00:00 :00 No 1{tbl} Take 1 tablet by mouth every 4 (four) hours as needed for Pain. [facility] acetaminoph en-codeine (TYLENOL #3) 300-30 mg per tablet 2022-07 18:02: 00 06-16 00:00 :00 No 1{tbl} Take 1 tablet by mouth every 4 (four) hours as needed for Pain. [facility] acetaminoph en-codeine (TYLENOL #3) 300-30 mg per tablet 2022-07 18:02: 00 06-16 00:00 :00 No 1{tbl} Take 1 tablet by mouth every 4 (four) hours as needed for Pain. [facility] acetaminoph en-codeine (TYLENOL #3) 300-30 mg per tablet 2022-07 18:02: 00 06-16 00:00 :00 No 1{tbl} Take 1 tablet by mouth every 4 (four) hours as needed for Pain. [facility] acetaminoph en-codeine (TYLENOL #3) 300-30 mg per tablet 2022-07 18:02: 00 06-16 00:00 :00 No 1{tbl} Take 1 tablet by mouth every 4 (four) hours as needed for Pain. [facility] acetaminoph en-codeine (TYLENOL #3) 300-30 mg per tablet 2022-07 18:02: 00 06-16 00:00 :00 No 1{tbl} Take 1 tablet by mouth every 4 (four) hours as needed for Pain. [facility] acetaminoph en-codeine (TYLENOL #3) 300-30 mg per tablet 2022-07 18:02: 00 06-16 00:00 :00 No 1{tbl} Take 1 tablet by mouth every 4 (four) hours as needed for Pain. [facility] acetaminoph en-codeine (TYLENOL #3) 300-30 mg per tablet 2022-07 18:02: 00 06-16 00:00 :00 No 1{tbl} Take 1 tablet by mouth every 4 (four) hours as needed for Pain. [facility] acetaminoph en-codeine (TYLENOL #3) 300-30 mg per tablet 2022-07 18:02: 00 06-16 00:00 :00 No 1{tbl} Take 1 tablet by mouth every 4 (four) hours as needed for Pain. [facility] acetaminoph en-codeine (TYLENOL #3) 300-30 mg per tablet 2022-07 18:02: 00 06-16 00:00 :00 No 1{tbl} Take 1 tablet by mouth every 4 (four) hours as needed for Pain. [facility] acetaminoph en-codeine (TYLENOL #3) 300-30 mg per tablet 2022-07 18:02: 00 06-16 00:00 :00 No 1{tbl} Take 1 tablet by mouth every 4 (four) hours as needed for Pain. [facility] acetaminoph en-codeine (TYLENOL #3) 300-30 mg per tablet 2022-07 18:02: 00 06-16 00:00 :00 No 1{tbl} Take 1 tablet by mouth every 4 (four) hours as needed for Pain. [facility] acetaminoph en-codeine (TYLENOL #3) 300-30 mg per tablet 2022-07 18:02: 00 06-16 00:00 :00 No 1{tbl} Take 1 tablet by mouth every 4 (four) hours as needed for Pain. [facility] acetaminoph en-codeine (TYLENOL #3) 300-30 mg per tablet 2022-07 18:02: 00 06-16 00:00 :00 No 1{tbl} Take 1 tablet by mouth every 4 (four) hours as needed for Pain. [facility] acetaminoph en-codeine (TYLENOL #3) 300-30 mg per tablet 2022-07 18:02: 00 06-16 00:00 :00 No 1{tbl} Take 1 tablet by mouth every 4 (four) hours as needed for Pain. [facility] acetaminoph en-codeine (TYLENOL #3) 300-30 mg per tablet 2022-07 18:02: 00 06-16 00:00 :00 No 1{tbl} Take 1 tablet by mouth every 4 (four) hours as needed for Pain. [facility] DULoxetine (CYMBALTA) 30 MG capsule 2022-07 00:00: 00 09-14 23:59 :00 No 30mg QD Take 1 capsule (30 mg total) by mouth daily for 90 days. [facility] DULoxetine (CYMBALTA) 30 MG capsule 2022-07 00:00: 00 09-14 23:59 :00 No 30mg QD Take 1 capsule (30 mg total) by mouth daily for 90 days. [facility] DULoxetine (CYMBALTA) 30 MG capsule 2022-07 00:00: 00 09-14 23:59 :00 No 30mg QD Take 1 capsule (30 mg total) by mouth daily for 90 days. [facility] DULoxetine (CYMBALTA) 30 MG capsule 2022-07 00:00: 00 09-14 23:59 :00 No 30mg QD Take 1 capsule (30 mg total) by mouth daily for 90 days. [facility] DULoxetine (CYMBALTA) 30 MG capsule 2022-07 00:00: 00 09-14 23:59 :00 No 30mg QD Take 1 capsule (30 mg total) by mouth daily for 90 days. [facility] DULoxetine (CYMBALTA) 30 MG capsule 2022-07 00:00: 00 09-14 23:59 :00 No 30mg QD Take 1 capsule (30 mg total) by mouth daily for 90 days. [facility] DULoxetine (CYMBALTA) 30 MG capsule 2022-07 00:00: 00 09-14 23:59 :00 No 30mg QD Take 1 capsule (30 mg total) by mouth daily for 90 days. [facility] DULoxetine (CYMBALTA) 30 MG capsule 2022-07 00:00: 00 09-14 23:59 :00 No 30mg QD Take 1 capsule (30 mg total) by mouth daily for 90 days. [facility] DULoxetine (CYMBALTA) 30 MG capsule 2022-07 00:00: 00 09-14 23:59 :00 No 30mg QD Take 1 capsule (30 mg total) by mouth daily for 90 days. [facility] DULoxetine (CYMBALTA) 30 MG capsule 2022-07 00:00: 00 09-14 23:59 :00 No 30mg QD Take 1 capsule (30 mg total) by mouth daily for 90 days. [facility] DULoxetine (CYMBALTA) 30 MG capsule 2022-07 00:00: 00 09-14 23:59 :00 No 30mg QD Take 1 capsule (30 mg total) by mouth daily for 90 days. [facility] DULoxetine (CYMBALTA) 30 MG capsule 2022-07 00:00: 00 09-14 23:59 :00 No 30mg QD Take 1 capsule (30 mg total) by mouth daily for 90 days. [facility] DULoxetine (CYMBALTA) 30 MG capsule 2022-07 00:00: 00 09-14 23:59 :00 No 30mg QD Take 1 capsule (30 mg total) by mouth daily for 90 days. [facility] DULoxetine (CYMBALTA) 30 MG capsule 2022-07 00:00: 00 09-14 23:59 :00 No 30mg QD Take 1 capsule (30 mg total) by mouth daily for 90 days. [facility] DULoxetine (CYMBALTA) 30 MG capsule 2022-07 00:00: 00 09-14 23:59 :00 No 30mg QD Take 1 capsule (30 mg total) by mouth daily for 90 days. [facility] DULoxetine (CYMBALTA) 30 MG capsule 2022-07 00:00: 00 09-14 23:59 :00 No 30mg QD Take 1 capsule (30 mg total) by mouth daily for 90 days. [facility] DULoxetine (CYMBALTA) 30 MG capsule 2022-07 00:00: 00 09-14 23:59 :00 No 30mg QD Take 1 capsule (30 mg total) by mouth daily for 90 days. [facility] DULoxetine (CYMBALTA) 30 MG capsule 2022-07 00:00: 00 09-14 23:59 :00 No 30mg QD Take 1 capsule (30 mg total) by mouth daily for 90 days. [facility] DULoxetine (CYMBALTA) 30 MG capsule 2022-07 00:00: 00 09-14 23:59 :00 No 30mg QD Take 1 capsule (30 mg total) by mouth daily for 90 days. [facility] DULoxetine (CYMBALTA) 30 MG capsule 2022-07 00:00: 00 09-14 23:59 :00 No 30mg QD Take 1 capsule (30 mg total) by mouth daily for 90 days. [facility] DULoxetine (CYMBALTA) 30 MG capsule 2022-07 00:00: 00 09-14 23:59 :00 No 30mg QD Take 1 capsule (30 mg total) by mouth daily for 90 days. [facility] DULoxetine (CYMBALTA) 30 MG capsule 2022-07 00:00: 00 09-14 23:59 :00 No 30mg QD Take 1 capsule (30 mg total) by mouth daily for 90 days. [facility] DULoxetine (CYMBALTA) 30 MG capsule 2022-07 00:00: 00 09-14 23:59 :00 No 30mg QD Take 1 capsule (30 mg total) by mouth daily for 90 days. [facility] DULoxetine (CYMBALTA) 30 MG capsule 2022-07 00:00: 00 09-08 00:00 :00 No 30mg QD Take 1 capsule (30 mg total) by mouth daily for 90 days. [facility] DULoxetine (CYMBALTA) 30 MG capsule 2022-07 00:00: 00 09-08 00:00 :00 No 30mg QD Take 1 capsule (30 mg total) by mouth daily for 90 days. [facility] DULoxetine (CYMBALTA) 30 MG capsule 2022-07 00:00: 00 09-08 00:00 :00 No 30mg QD Take 1 capsule (30 mg total) by mouth daily for 90 days. [facility] DULoxetine (CYMBALTA) 30 MG capsule 2022-07 00:00: 00 09-08 00:00 :00 No 30mg QD Take 1 capsule (30 mg total) by mouth daily for 90 days. [facility] DULoxetine (CYMBALTA) 30 MG capsule 2022-07 00:00: 00 09-08 00:00 :00 No 30mg QD Take 1 capsule (30 mg total) by mouth daily for 90 days. [facility] DULoxetine (CYMBALTA) 30 MG capsule 2022-07 00:00: 00 09-08 00:00 :00 No 30mg QD Take 1 capsule (30 mg total) by mouth daily for 90 days. [facility] metroNIDAZO LE (FLAGYL) 500 MG tablet 2022-07 00:00: 00 07-04 23:59 :00 No 500mg Take 1 tablet (500 mg total) by mouth every 8 (eight) hours for 18 days. [facility] ciprofloxac in HCl (CIPRO) 500 MG tablet 2022-07 00:00: 00 07-04 23:59 :00 No 500mg Q.5D Take 1 tablet (500 mg total) by mouth 2 (two) times daily for 18 days. [facility] metroNIDAZO LE (FLAGYL) 500 MG tablet 2022-07 00:00: 00 07-04 23:59 :00 No 500mg Take 1 tablet (500 mg total) by mouth every 8 (eight) hours for 18 days. [facility] ciprofloxac in HCl (CIPRO) 500 MG tablet 2022-07 00:00: 00 07-04 23:59 :00 No 500mg Q.5D Take 1 tablet (500 mg total) by mouth 2 (two) times daily for 18 days. [facility] metroNIDAZO LE (FLAGYL) 500 MG tablet 2022-07 00:00: 00 07-04 23:59 :00 No 500mg Take 1 tablet (500 mg total) by mouth every 8 (eight) hours for 18 days. [facility] ciprofloxac in HCl (CIPRO) 500 MG tablet 2022-07 00:00: 00 07-04 23:59 :00 No 500mg Q.5D Take 1 tablet (500 mg total) by mouth 2 (two) times daily for 18 days. [facility] metroNIDAZO LE (FLAGYL) 500 MG tablet 2022-07 00:00: 00 07-04 23:59 :00 No 500mg Take 1 tablet (500 mg total) by mouth every 8 (eight) hours for 18 days. [facility] ciprofloxac in HCl (CIPRO) 500 MG tablet 2022-07 00:00: 00 07-04 23:59 :00 No 500mg Q.5D Take 1 tablet (500 mg total) by mouth 2 (two) times daily for 18 days. [facility] metroNIDAZO LE (FLAGYL) 500 MG tablet 2022-07 00:00: 00 07-04 23:59 :00 No 500mg Take 1 tablet (500 mg total) by mouth every 8 (eight) hours for 18 days. [facility] ciprofloxac in HCl (CIPRO) 500 MG tablet 2022-07 00:00: 00 07-04 23:59 :00 No 500mg Q.5D Take 1 tablet (500 mg total) by mouth 2 (two) times daily for 18 days. [facility] metroNIDAZO LE (FLAGYL) 500 MG tablet 2022-07 00:00: 00 07-04 23:59 :00 No 500mg Take 1 tablet (500 mg total) by mouth every 8 (eight) hours for 18 days. [facility] ciprofloxac in HCl (CIPRO) 500 MG tablet 2022-07 00:00: 00 07-04 23:59 :00 No 500mg Q.5D Take 1 tablet (500 mg total) by mouth 2 (two) times daily for 18 days. [facility] metroNIDAZO LE (FLAGYL) 500 MG tablet 2022-07 00:00: 00 07-04 23:59 :00 No 500mg Take 1 tablet (500 mg total) by mouth every 8 (eight) hours for 18 days. [facility] ciprofloxac in HCl (CIPRO) 500 MG tablet 2022-07 00:00: 00 07-04 23:59 :00 No 500mg Q.5D Take 1 tablet (500 mg total) by mouth 2 (two) times daily for 18 days. [facility] metroNIDAZO LE (FLAGYL) 500 MG tablet 2022-07 00:00: 00 07-04 23:59 :00 No 500mg Take 1 tablet (500 mg total) by mouth every 8 (eight) hours for 18 days. [facility] ciprofloxac in HCl (CIPRO) 500 MG tablet 2022-07 00:00: 00 07-04 23:59 :00 No 500mg Q.5D Take 1 tablet (500 mg total) by mouth 2 (two) times daily for 18 days. [facility] metroNIDAZO LE (FLAGYL) 500 MG tablet 2022-07 00:00: 00 07-04 23:59 :00 No 500mg Take 1 tablet (500 mg total) by mouth every 8 (eight) hours for 18 days. [facility] ciprofloxac in HCl (CIPRO) 500 MG tablet 2022-07 00:00: 00 07-04 23:59 :00 No 500mg Q.5D Take 1 tablet (500 mg total) by mouth 2 (two) times daily for 18 days. [facility] metroNIDAZO LE (FLAGYL) 500 MG tablet 2022-07 00:00: 00 07-04 23:59 :00 No 500mg Take 1 tablet (500 mg total) by mouth every 8 (eight) hours for 18 days. [facility] ciprofloxac in HCl (CIPRO) 500 MG tablet 2022-07 00:00: 00 07-04 23:59 :00 No 500mg Q.5D Take 1 tablet (500 mg total) by mouth 2 (two) times daily for 18 days. [facility] metroNIDAZO LE (FLAGYL) 500 MG tablet 2022-07 00:00: 00 07-04 23:59 :00 No 500mg Take 1 tablet (500 mg total) by mouth every 8 (eight) hours for 18 days. [facility] ciprofloxac in HCl (CIPRO) 500 MG tablet 2022-07 00:00: 00 07-04 23:59 :00 No 500mg Q.5D Take 1 tablet (500 mg total) by mouth 2 (two) times daily for 18 days. [facility] metroNIDAZO LE (FLAGYL) 500 MG tablet 2022-07 00:00: 00 07-04 23:59 :00 No 500mg Take 1 tablet (500 mg total) by mouth every 8 (eight) hours for 18 days. [facility] ciprofloxac in HCl (CIPRO) 500 MG tablet 2022-07 00:00: 00 07-04 23:59 :00 No 500mg Q.5D Take 1 tablet (500 mg total) by mouth 2 (two) times daily for 18 days. [facility] metroNIDAZO LE (FLAGYL) 500 MG tablet 2022-07 00:00: 00 07-04 23:59 :00 No 500mg Take 1 tablet (500 mg total) by mouth every 8 (eight) hours for 18 days. [facility] ciprofloxac in HCl (CIPRO) 500 MG tablet 2022-07 00:00: 00 07-04 23:59 :00 No 500mg Q.5D Take 1 tablet (500 mg total) by mouth 2 (two) times daily for 18 days. [facility] metroNIDAZO LE (FLAGYL) 500 MG tablet 2022-07 00:00: 00 07-04 23:59 :00 No 500mg Take 1 tablet (500 mg total) by mouth every 8 (eight) hours for 18 days. [facility] ciprofloxac in HCl (CIPRO) 500 MG tablet 2022-07 00:00: 00 07-04 23:59 :00 No 500mg Q.5D Take 1 tablet (500 mg total) by mouth 2 (two) times daily for 18 days. [facility] metroNIDAZO LE (FLAGYL) 500 MG tablet 2022-07 00:00: 00 07-04 23:59 :00 No 500mg Take 1 tablet (500 mg total) by mouth every 8 (eight) hours for 18 days. [facility] ciprofloxac in HCl (CIPRO) 500 MG tablet 2022-07 00:00: 00 07-04 23:59 :00 No 500mg Q.5D Take 1 tablet (500 mg total) by mouth 2 (two) times daily for 18 days. [facility] metroNIDAZO LE (FLAGYL) 500 MG tablet 2022-07 00:00: 00 07-04 23:59 :00 No 500mg Take 1 tablet (500 mg total) by mouth every 8 (eight) hours for 18 days. [facility] ciprofloxac in HCl (CIPRO) 500 MG tablet 2022-07 00:00: 00 07-04 23:59 :00 No 500mg Q.5D Take 1 tablet (500 mg total) by mouth 2 (two) times daily for 18 days. [facility] metroNIDAZO LE (FLAGYL) 500 MG tablet 2022-07 00:00: 00 07-04 23:59 :00 No 500mg Take 1 tablet (500 mg total) by mouth every 8 (eight) hours for 18 days. [facility] ciprofloxac in HCl (CIPRO) 500 MG tablet 2022-07 00:00: 00 07-04 23:59 :00 No 500mg Q.5D Take 1 tablet (500 mg total) by mouth 2 (two) times daily for 18 days. [facility] metroNIDAZO LE (FLAGYL) 500 MG tablet 2022-07 00:00: 00 07-04 23:59 :00 No 500mg Take 1 tablet (500 mg total) by mouth every 8 (eight) hours for 18 days. [facility] ciprofloxac in HCl (CIPRO) 500 MG tablet 2022-07 00:00: 00 07-04 23:59 :00 No 500mg Q.5D Take 1 tablet (500 mg total) by mouth 2 (two) times daily for 18 days. [facility] metroNIDAZO LE (FLAGYL) 500 MG tablet 2022-07 00:00: 00 07-04 23:59 :00 No 500mg Take 1 tablet (500 mg total) by mouth every 8 (eight) hours for 18 days. [facility] ciprofloxac in HCl (CIPRO) 500 MG tablet 2022-07 00:00: 00 07-04 23:59 :00 No 500mg Q.5D Take 1 tablet (500 mg total) by mouth 2 (two) times daily for 18 days. [facility] metroNIDAZO LE (FLAGYL) 500 MG tablet 2022-07 00:00: 00 07-04 23:59 :00 No 500mg Take 1 tablet (500 mg total) by mouth every 8 (eight) hours for 18 days. [facility] ciprofloxac in HCl (CIPRO) 500 MG tablet 2022-07 00:00: 00 07-04 23:59 :00 No 500mg Q.5D Take 1 tablet (500 mg total) by mouth 2 (two) times daily for 18 days. [facility] metroNIDAZO LE (FLAGYL) 500 MG tablet 2022-07 00:00: 00 07-04 23:59 :00 No 500mg Take 1 tablet (500 mg total) by mouth every 8 (eight) hours for 18 days. [facility] ciprofloxac in HCl (CIPRO) 500 MG tablet 2022-07 00:00: 00 07-04 23:59 :00 No 500mg Q.5D Take 1 tablet (500 mg total) by mouth 2 (two) times daily for 18 days. [facility] metroNIDAZO LE (FLAGYL) 500 MG tablet 2022-07 00:00: 00 07-04 23:59 :00 No 500mg Take 1 tablet (500 mg total) by mouth every 8 (eight) hours for 18 days. [facility] ciprofloxac in HCl (CIPRO) 500 MG tablet 2022-07 00:00: 00 07-04 23:59 :00 No 500mg Q.5D Take 1 tablet (500 mg total) by mouth 2 (two) times daily for 18 days. [facility] metroNIDAZO LE (FLAGYL) 500 MG tablet 2022-07 00:00: 00 07-04 23:59 :00 No 500mg Take 1 tablet (500 mg total) by mouth every 8 (eight) hours for 18 days. [facility] ciprofloxac in HCl (CIPRO) 500 MG tablet 2022-07 00:00: 00 07-04 23:59 :00 No 500mg Q.5D Take 1 tablet (500 mg total) by mouth 2 (two) times daily for 18 days. [facility] metroNIDAZO LE (FLAGYL) 500 MG tablet 2022-07 00:00: 00 07-04 23:59 :00 No 500mg Take 1 tablet (500 mg total) by mouth every 8 (eight) hours for 18 days. [facility] ciprofloxac in HCl (CIPRO) 500 MG tablet 2022-07 00:00: 00 07-04 23:59 :00 No 500mg Q.5D Take 1 tablet (500 mg total) by mouth 2 (two) times daily for 18 days. [facility] metroNIDAZO LE (FLAGYL) 500 MG tablet 2022-07 00:00: 00 07-04 23:59 :00 No 500mg Take 1 tablet (500 mg total) by mouth every 8 (eight) hours for 18 days. [facility] ciprofloxac in HCl (CIPRO) 500 MG tablet 2022-07 00:00: 00 07-04 23:59 :00 No 500mg Q.5D Take 1 tablet (500 mg total) by mouth 2 (two) times daily for 18 days. [facility] metroNIDAZO LE (FLAGYL) 500 MG tablet 2022-07 00:00: 00 07-04 23:59 :00 No 500mg Take 1 tablet (500 mg total) by mouth every 8 (eight) hours for 18 days. [facility] ciprofloxac in HCl (CIPRO) 500 MG tablet 2022-07 00:00: 00 07-04 23:59 :00 No 500mg Q.5D Take 1 tablet (500 mg total) by mouth 2 (two) times daily for 18 days. [facility] metroNIDAZO LE (FLAGYL) 500 MG tablet 2022-07 00:00: 00 07-04 23:59 :00 No 500mg Take 1 tablet (500 mg total) by mouth every 8 (eight) hours for 18 days. [facility] ciprofloxac in HCl (CIPRO) 500 MG tablet 2022-07 00:00: 00 07-04 23:59 :00 No 500mg Q.5D Take 1 tablet (500 mg total) by mouth 2 (two) times daily for 18 days. [facility] metroNIDAZO LE (FLAGYL) 500 MG tablet 2022-07 00:00: 00 07-04 23:59 :00 No 500mg Take 1 tablet (500 mg total) by mouth every 8 (eight) hours for 18 days. [facility] ciprofloxac in HCl (CIPRO) 500 MG tablet 2022-07 00:00: 00 07-04 23:59 :00 No 500mg Q.5D Take 1 tablet (500 mg total) by mouth 2 (two) times daily for 18 days. [facility] metroNIDAZO LE (FLAGYL) 500 MG tablet 2022-07 00:00: 00 07-04 23:59 :00 No 500mg Take 1 tablet (500 mg total) by mouth every 8 (eight) hours for 18 days. [facility] ciprofloxac in HCl (CIPRO) 500 MG tablet 2022-07 00:00: 00 07-04 23:59 :00 No 500mg Q.5D Take 1 tablet (500 mg total) by mouth 2 (two) times daily for 18 days. [facility] cyclobenzap rine (FLEXERIL) 10 MG tablet 2022-07 00:00: 00 06-26 23:59 :00 No 10mg Q.[id number] 3D Take 1 tablet (10 mg total) by mouth 3 (three) times daily for 10 days. [facility] oxyCODONE (OXY-IR) 10 mg tablet 2022-07 00:00: 00 06-26 23:59 :00 No 10mg Take 1 tablet (10 mg total) by mouth every 8 (eight) hours as needed for up to 10 days. Max Daily Amount: 30 mg [facility] cyclobenzap rine (FLEXERIL) 10 MG tablet 2022-07 00:00: 00 06-26 23:59 :00 No 10mg Q.[id number] 3D Take 1 tablet (10 mg total) by mouth 3 (three) times daily for 10 days. [facility] oxyCODONE (OXY-IR) 10 mg tablet 2022-07 00:00: 00 06-26 23:59 :00 No 10mg Take 1 tablet (10 mg total) by mouth every 8 (eight) hours as needed for up to 10 days. Max Daily Amount: 30 mg [facility] cyclobenzap rine (FLEXERIL) 10 MG tablet 2022-07 00:00: 00 06-26 23:59 :00 No 10mg Q.[id number] 3D Take 1 tablet (10 mg total) by mouth 3 (three) times daily for 10 days. [facility] oxyCODONE (OXY-IR) 10 mg tablet 2022-07 00:00: 00 06-26 23:59 :00 No 10mg Take 1 tablet (10 mg total) by mouth every 8 (eight) hours as needed for up to 10 days. Max Daily Amount: 30 mg [facility] cyclobenzap rine (FLEXERIL) 10 MG tablet 2022-07 00:00: 00 06-26 23:59 :00 No 10mg Q.[id number] 3D Take 1 tablet (10 mg total) by mouth 3 (three) times daily for 10 days. [facility] oxyCODONE (OXY-IR) 10 mg tablet 2022-07 00:00: 00 06-26 23:59 :00 No 10mg Take 1 tablet (10 mg total) by mouth every 8 (eight) hours as needed for up to 10 days. Max Daily Amount: 30 mg [facility] cyclobenzap rine (FLEXERIL) 10 MG tablet 2022-07 00:00: 00 06-26 23:59 :00 No 10mg Q.[id number] 3D Take 1 tablet (10 mg total) by mouth 3 (three) times daily for 10 days. [facility] oxyCODONE (OXY-IR) 10 mg tablet 2022-07 00:00: 00 06-26 23:59 :00 No 10mg Take 1 tablet (10 mg total) by mouth every 8 (eight) hours as needed for up to 10 days. Max Daily Amount: 30 mg [facility] cyclobenzap rine (FLEXERIL) 10 MG tablet 2022-07 00:00: 00 06-26 23:59 :00 No 10mg Q.[id number] 3D Take 1 tablet (10 mg total) by mouth 3 (three) times daily for 10 days. [facility] oxyCODONE (OXY-IR) 10 mg tablet 2022-07 00:00: 00 06-26 23:59 :00 No 10mg Take 1 tablet (10 mg total) by mouth every 8 (eight) hours as needed for up to 10 days. Max Daily Amount: 30 mg [facility] cyclobenzap rine (FLEXERIL) 10 MG tablet 2022-07 00:00: 00 06-26 23:59 :00 No 10mg Q.[id number] 3D Take 1 tablet (10 mg total) by mouth 3 (three) times daily for 10 days. [facility] oxyCODONE (OXY-IR) 10 mg tablet 2022-07 00:00: 00 06-26 23:59 :00 No 10mg Take 1 tablet (10 mg total) by mouth every 8 (eight) hours as needed for up to 10 days. Max Daily Amount: 30 mg [facility] cyclobenzap rine (FLEXERIL) 10 MG tablet 2022-07 00:00: 00 06-26 23:59 :00 No 10mg Q.[id number] 3D Take 1 tablet (10 mg total) by mouth 3 (three) times daily for 10 days. [facility] oxyCODONE (OXY-IR) 10 mg tablet 2022-07 00:00: 00 06-26 23:59 :00 No 10mg Take 1 tablet (10 mg total) by mouth every 8 (eight) hours as needed for up to 10 days. Max Daily Amount: 30 mg [facility] cyclobenzap rine (FLEXERIL) 10 MG tablet 2022-07 00:00: 00 06-26 23:59 :00 No 10mg Q.[id number] 3D Take 1 tablet (10 mg total) by mouth 3 (three) times daily for 10 days. [facility] oxyCODONE (OXY-IR) 10 mg tablet 2022-07 00:00: 00 06-26 23:59 :00 No 10mg Take 1 tablet (10 mg total) by mouth every 8 (eight) hours as needed for up to 10 days. Max Daily Amount: 30 mg [facility] cyclobenzap rine (FLEXERIL) 10 MG tablet 2022-07 00:00: 00 06-26 23:59 :00 No 10mg Q.[id number] 3D Take 1 tablet (10 mg total) by mouth 3 (three) times daily for 10 days. [facility] oxyCODONE (OXY-IR) 10 mg tablet 2022-07 00:00: 00 06-26 23:59 :00 No 10mg Take 1 tablet (10 mg total) by mouth every 8 (eight) hours as needed for up to 10 days. Max Daily Amount: 30 mg [facility] cyclobenzap rine (FLEXERIL) 10 MG tablet 2022-07 00:00: 00 06-26 23:59 :00 No 10mg Q.[id number] 3D Take 1 tablet (10 mg total) by mouth 3 (three) times daily for 10 days. [facility] oxyCODONE (OXY-IR) 10 mg tablet 2022-07 00:00: 00 06-26 23:59 :00 No 10mg Take 1 tablet (10 mg total) by mouth every 8 (eight) hours as needed for up to 10 days. Max Daily Amount: 30 mg [facility] cyclobenzap rine (FLEXERIL) 10 MG tablet 2022-07 00:00: 00 06-26 23:59 :00 No 10mg Q.[id number] 3D Take 1 tablet (10 mg total) by mouth 3 (three) times daily for 10 days. [facility] oxyCODONE (OXY-IR) 10 mg tablet 2022-07 00:00: 00 06-26 23:59 :00 No 10mg Take 1 tablet (10 mg total) by mouth every 8 (eight) hours as needed for up to 10 days. Max Daily Amount: 30 mg [facility] cyclobenzap rine (FLEXERIL) 10 MG tablet 2022-07 00:00: 00 06-26 23:59 :00 No 10mg Q.[id number] 3D Take 1 tablet (10 mg total) by mouth 3 (three) times daily for 10 days. [facility] oxyCODONE (OXY-IR) 10 mg tablet 2022-07 00:00: 00 06-26 23:59 :00 No 10mg Take 1 tablet (10 mg total) by mouth every 8 (eight) hours as needed for up to 10 days. Max Daily Amount: 30 mg [facility] cyclobenzap rine (FLEXERIL) 10 MG tablet 2022-07 00:00: 00 06-26 23:59 :00 No 10mg Q.[id number] 3D Take 1 tablet (10 mg total) by mouth 3 (three) times daily for 10 days. [facility] oxyCODONE (OXY-IR) 10 mg tablet 2022-07 00:00: 00 06-26 23:59 :00 No 10mg Take 1 tablet (10 mg total) by mouth every 8 (eight) hours as needed for up to 10 days. Max Daily Amount: 30 mg [facility] cyclobenzap rine (FLEXERIL) 10 MG tablet 2022-07 00:00: 00 06-26 23:59 :00 No 10mg Q.[id number] 3D Take 1 tablet (10 mg total) by mouth 3 (three) times daily for 10 days. [facility] oxyCODONE (OXY-IR) 10 mg tablet 2022-07 00:00: 00 06-26 23:59 :00 No 10mg Take 1 tablet (10 mg total) by mouth every 8 (eight) hours as needed for up to 10 days. Max Daily Amount: 30 mg [facility] cyclobenzap rine (FLEXERIL) 10 MG tablet 2022-07 00:00: 00 06-26 23:59 :00 No 10mg Q.[id number] 3D Take 1 tablet (10 mg total) by mouth 3 (three) times daily for 10 days. [facility] oxyCODONE (OXY-IR) 10 mg tablet 2022-07 00:00: 00 06-26 23:59 :00 No 10mg Take 1 tablet (10 mg total) by mouth every 8 (eight) hours as needed for up to 10 days. Max Daily Amount: 30 mg [facility] cyclobenzap rine (FLEXERIL) 10 MG tablet 2022-07 00:00: 00 06-26 23:59 :00 No 10mg Q.[id number] 3D Take 1 tablet (10 mg total) by mouth 3 (three) times daily for 10 days. [facility] oxyCODONE (OXY-IR) 10 mg tablet 2022-07 00:00: 00 06-26 23:59 :00 No 10mg Take 1 tablet (10 mg total) by mouth every 8 (eight) hours as needed for up to 10 days. Max Daily Amount: 30 mg [facility] cyclobenzap rine (FLEXERIL) 10 MG tablet 2022-07 00:00: 00 06-26 23:59 :00 No 10mg Q.[id number] 3D Take 1 tablet (10 mg total) by mouth 3 (three) times daily for 10 days. [facility] oxyCODONE (OXY-IR) 10 mg tablet 2022-07 00:00: 00 06-26 23:59 :00 No 10mg Take 1 tablet (10 mg total) by mouth every 8 (eight) hours as needed for up to 10 days. Max Daily Amount: 30 mg [facility] cyclobenzap rine (FLEXERIL) 10 MG tablet 2022-07 00:00: 00 06-26 23:59 :00 No 10mg Q.[id number] 3D Take 1 tablet (10 mg total) by mouth 3 (three) times daily for 10 days. [facility] oxyCODONE (OXY-IR) 10 mg tablet 2022-07 00:00: 00 06-26 23:59 :00 No 10mg Take 1 tablet (10 mg total) by mouth every 8 (eight) hours as needed for up to 10 days. Max Daily Amount: 30 mg [facility] cyclobenzap rine (FLEXERIL) 10 MG tablet 2022-07 00:00: 00 06-26 23:59 :00 No 10mg Q.[id number] 3D Take 1 tablet (10 mg total) by mouth 3 (three) times daily for 10 days. [facility] oxyCODONE (OXY-IR) 10 mg tablet 2022-07 00:00: 00 06-26 23:59 :00 No 10mg Take 1 tablet (10 mg total) by mouth every 8 (eight) hours as needed for up to 10 days. Max Daily Amount: 30 mg [facility] cyclobenzap rine (FLEXERIL) 10 MG tablet 2022-07 00:00: 00 06-26 23:59 :00 No 10mg Q.[id number] 3D Take 1 tablet (10 mg total) by mouth 3 (three) times daily for 10 days. [facility] oxyCODONE (OXY-IR) 10 mg tablet 2022-07 00:00: 00 06-26 23:59 :00 No 10mg Take 1 tablet (10 mg total) by mouth every 8 (eight) hours as needed for up to 10 days. Max Daily Amount: 30 mg [facility] cyclobenzap rine (FLEXERIL) 10 MG tablet 2022-07 00:00: 00 06-26 23:59 :00 No 10mg Q.[id number] 3D Take 1 tablet (10 mg total) by mouth 3 (three) times daily for 10 days. [facility] oxyCODONE (OXY-IR) 10 mg tablet 2022-07 00:00: 00 06-26 23:59 :00 No 10mg Take 1 tablet (10 mg total) by mouth every 8 (eight) hours as needed for up to 10 days. Max Daily Amount: 30 mg [facility] cyclobenzap rine (FLEXERIL) 10 MG tablet 2022-07 00:00: 00 06-26 23:59 :00 No 10mg Q.[id number] 3D Take 1 tablet (10 mg total) by mouth 3 (three) times daily for 10 days. [facility] oxyCODONE (OXY-IR) 10 mg tablet 2022-07 00:00: 00 06-26 23:59 :00 No 10mg Take 1 tablet (10 mg total) by mouth every 8 (eight) hours as needed for up to 10 days. Max Daily Amount: 30 mg [facility] cyclobenzap rine (FLEXERIL) 10 MG tablet 2022-07 00:00: 00 06-26 23:59 :00 No 10mg Q.[id number] 3D Take 1 tablet (10 mg total) by mouth 3 (three) times daily for 10 days. [facility] oxyCODONE (OXY-IR) 10 mg tablet 2022-07 00:00: 00 06-26 23:59 :00 No 10mg Take 1 tablet (10 mg total) by mouth every 8 (eight) hours as needed for up to 10 days. Max Daily Amount: 30 mg [facility] cyclobenzap rine (FLEXERIL) 10 MG tablet 2022-07 00:00: 00 06-26 23:59 :00 No 10mg Q.[id number] 3D Take 1 tablet (10 mg total) by mouth 3 (three) times daily for 10 days. [facility] oxyCODONE (OXY-IR) 10 mg tablet 2022-07 00:00: 00 06-26 23:59 :00 No 10mg Take 1 tablet (10 mg total) by mouth every 8 (eight) hours as needed for up to 10 days. Max Daily Amount: 30 mg [facility] cyclobenzap rine (FLEXERIL) 10 MG tablet 2022-07 00:00: 00 06-26 23:59 :00 No 10mg Q.[id number] 3D Take 1 tablet (10 mg total) by mouth 3 (three) times daily for 10 days. [facility] oxyCODONE (OXY-IR) 10 mg tablet 2022-07 00:00: 00 06-26 23:59 :00 No 10mg Take 1 tablet (10 mg total) by mouth every 8 (eight) hours as needed for up to 10 days. Max Daily Amount: 30 mg [facility] cyclobenzap rine (FLEXERIL) 10 MG tablet 2022-07 00:00: 00 06-26 23:59 :00 No 10mg Q.[id number] 3D Take 1 tablet (10 mg total) by mouth 3 (three) times daily for 10 days. [facility] oxyCODONE (OXY-IR) 10 mg tablet 2022-07 00:00: 00 06-26 23:59 :00 No 10mg Take 1 tablet (10 mg total) by mouth every 8 (eight) hours as needed for up to 10 days. Max Daily Amount: 30 mg [facility] cyclobenzap rine (FLEXERIL) 10 MG tablet 2022-07 00:00: 00 06-26 23:59 :00 No 10mg Q.[id number] 3D Take 1 tablet (10 mg total) by mouth 3 (three) times daily for 10 days. [facility] oxyCODONE (OXY-IR) 10 mg tablet 2022-07 00:00: 00 06-26 23:59 :00 No 10mg Take 1 tablet (10 mg total) by mouth every 8 (eight) hours as needed for up to 10 days. Max Daily Amount: 30 mg [facility] cyclobenzap rine (FLEXERIL) 10 MG tablet 2022-07 00:00: 00 06-26 23:59 :00 No 10mg Q.[id number] 3D Take 1 tablet (10 mg total) by mouth 3 (three) times daily for 10 days. [facility] oxyCODONE (OXY-IR) 10 mg tablet 2022-07 00:00: 00 06-26 23:59 :00 No 10mg Take 1 tablet (10 mg total) by mouth every 8 (eight) hours as needed for up to 10 days. Max Daily Amount: 30 mg [facility] nystatin (MYCOSTATIN ) 100,000 unit/mL suspension 2022-07 00:00: 00 06-21 23:59 :00 No [id number] Q.25D Take 5 mLs (500,000 Units total) by mouth 4 (four) times daily for 5 days. [facility] nystatin (MYCOSTATIN ) 100,000 unit/mL suspension 2022-07 00:00: 00 06-21 23:59 :00 No [id number] Q.25D Take 5 mLs (500,000 Units total) by mouth 4 (four) times daily for 5 days. [facility] nystatin (MYCOSTATIN ) 100,000 unit/mL suspension 2022-07 00:00: 00 06-21 23:59 :00 No [id number] Q.25D Take 5 mLs (500,000 Units total) by mouth 4 (four) times daily for 5 days. [facility] nystatin (MYCOSTATIN ) 100,000 unit/mL suspension 2022-07 00:00: 00 06-21 23:59 :00 No [id number] Q.25D Take 5 mLs (500,000 Units total) by mouth 4 (four) times daily for 5 days. [facility] nystatin (MYCOSTATIN ) 100,000 unit/mL suspension 2022-07 00:00: 00 06-21 23:59 :00 No [id number] Q.25D Take 5 mLs (500,000 Units total) by mouth 4 (four) times daily for 5 days. [facility] nystatin (MYCOSTATIN ) 100,000 unit/mL suspension 2022-07 00:00: 00 06-21 23:59 :00 No [id number] Q.25D Take 5 mLs (500,000 Units total) by mouth 4 (four) times daily for 5 days. [facility] nystatin (MYCOSTATIN ) 100,000 unit/mL suspension 2022-07 00:00: 00 06-21 23:59 :00 No [id number] Q.25D Take 5 mLs (500,000 Units total) by mouth 4 (four) times daily for 5 days. [facility] nystatin (MYCOSTATIN ) 100,000 unit/mL suspension 2022-07 00:00: 00 06-21 23:59 :00 No [id number] Q.25D Take 5 mLs (500,000 Units total) by mouth 4 (four) times daily for 5 days. [facility] nystatin (MYCOSTATIN ) 100,000 unit/mL suspension 2022-07 00:00: 00 06-21 23:59 :00 No [id number] Q.25D Take 5 mLs (500,000 Units total) by mouth 4 (four) times daily for 5 days. [facility] nystatin (MYCOSTATIN ) 100,000 unit/mL suspension 2022-07 00:00: 00 06-21 23:59 :00 No [id number] Q.25D Take 5 mLs (500,000 Units total) by mouth 4 (four) times daily for 5 days. [facility] nystatin (MYCOSTATIN ) 100,000 unit/mL suspension 2022-07 00:00: 00 06-21 23:59 :00 No [id number] Q.25D Take 5 mLs (500,000 Units total) by mouth 4 (four) times daily for 5 days. [facility] nystatin (MYCOSTATIN ) 100,000 unit/mL suspension 2022-07 00:00: 00 06-21 23:59 :00 No [id number] Q.25D Take 5 mLs (500,000 Units total) by mouth 4 (four) times daily for 5 days. [facility] nystatin (MYCOSTATIN ) 100,000 unit/mL suspension 2022-07 00:00: 00 06-21 23:59 :00 No [id number] Q.25D Take 5 mLs (500,000 Units total) by mouth 4 (four) times daily for 5 days. [facility] nystatin (MYCOSTATIN ) 100,000 unit/mL suspension 2022-07 00:00: 00 06-21 23:59 :00 No [id number] Q.25D Take 5 mLs (500,000 Units total) by mouth 4 (four) times daily for 5 days. [facility] nystatin (MYCOSTATIN ) 100,000 unit/mL suspension 2022-07 00:00: 00 06-21 23:59 :00 No [id number] Q.25D Take 5 mLs (500,000 Units total) by mouth 4 (four) times daily for 5 days. [facility] nystatin (MYCOSTATIN ) 100,000 unit/mL suspension 2022-07 00:00: 00 06-21 23:59 :00 No [id number] Q.25D Take 5 mLs (500,000 Units total) by mouth 4 (four) times daily for 5 days. [facility] nystatin (MYCOSTATIN ) 100,000 unit/mL suspension 2022-07 00:00: 00 06-21 23:59 :00 No [id number] Q.25D Take 5 mLs (500,000 Units total) by mouth 4 (four) times daily for 5 days. [facility] nystatin (MYCOSTATIN ) 100,000 unit/mL suspension 2022-07 00:00: 00 06-21 23:59 :00 No [id number] Q.25D Take 5 mLs (500,000 Units total) by mouth 4 (four) times daily for 5 days. [facility] nystatin (MYCOSTATIN ) 100,000 unit/mL suspension 2022-07 00:00: 00 06-21 23:59 :00 No [id number] Q.25D Take 5 mLs (500,000 Units total) by mouth 4 (four) times daily for 5 days. [facility] nystatin (MYCOSTATIN ) 100,000 unit/mL suspension 2022-07 00:00: 00 06-21 23:59 :00 No [id number] Q.25D Take 5 mLs (500,000 Units total) by mouth 4 (four) times daily for 5 days. [facility] nystatin (MYCOSTATIN ) 100,000 unit/mL suspension 2022-07 00:00: 00 06-21 23:59 :00 No [id number] Q.25D Take 5 mLs (500,000 Units total) by mouth 4 (four) times daily for 5 days. [facility] nystatin (MYCOSTATIN ) 100,000 unit/mL suspension 2022-07 00:00: 00 06-21 23:59 :00 No [id number] Q.25D Take 5 mLs (500,000 Units total) by mouth 4 (four) times daily for 5 days. [facility] nystatin (MYCOSTATIN ) 100,000 unit/mL suspension 2022-07 00:00: 00 06-21 23:59 :00 No [id number] Q.25D Take 5 mLs (500,000 Units total) by mouth 4 (four) times daily for 5 days. [facility] nystatin (MYCOSTATIN ) 100,000 unit/mL suspension 2022-07 00:00: 00 06-21 23:59 :00 No [id number] Q.25D Take 5 mLs (500,000 Units total) by mouth 4 (four) times daily for 5 days. [facility] nystatin (MYCOSTATIN ) 100,000 unit/mL suspension 2022-07 00:00: 00 06-21 23:59 :00 No [id number] Q.25D Take 5 mLs (500,000 Units total) by mouth 4 (four) times daily for 5 days. [facility] nystatin (MYCOSTATIN ) 100,000 unit/mL suspension 2022-07 00:00: 00 06-21 23:59 :00 No [id number] Q.25D Take 5 mLs (500,000 Units total) by mouth 4 (four) times daily for 5 days. [facility] nystatin (MYCOSTATIN ) 100,000 unit/mL suspension 2022-07 00:00: 00 06-21 23:59 :00 No [id number] Q.25D Take 5 mLs (500,000 Units total) by mouth 4 (four) times daily for 5 days. [facility] nystatin (MYCOSTATIN ) 100,000 unit/mL suspension 2022-07 00:00: 00 06-21 23:59 :00 No [id number] Q.25D Take 5 mLs (500,000 Units total) by mouth 4 (four) times daily for 5 days. [facility] nystatin (MYCOSTATIN ) 100,000 unit/mL suspension 2022-07 00:00: 00 06-21 23:59 :00 No [id number] Q.25D Take 5 mLs (500,000 Units total) by mouth 4 (four) times daily for 5 days. [facility] dexAMETHaso ne (DECADRON) 2 MG tablet 2022-07 00:00: 00 06-08 23:59 :00 No 1mg Take 0.5 tablets (1 mg total) by mouth 2 (two) times daily with breakfast and dinner for 2 days. [facility] dexAMETHaso ne (DECADRON) 2 MG tablet 2022-07 00:00: 00 06-08 23:59 :00 No 1mg Take 0.5 tablets (1 mg total) by mouth 2 (two) times daily with breakfast and dinner for 2 days. [facility] dexAMETHaso ne (DECADRON) 2 MG tablet 2022-07 00:00: 00 06-08 23:59 :00 No 1mg Take 0.5 tablets (1 mg total) by mouth 2 (two) times daily with breakfast and dinner for 2 days. [facility] dexAMETHaso ne (DECADRON) 2 MG tablet 2022-07 00:00: 00 06-08 23:59 :00 No 1mg Take 0.5 tablets (1 mg total) by mouth 2 (two) times daily with breakfast and dinner for 2 days. [facility] dexAMETHaso ne (DECADRON) 2 MG tablet 2022-07 00:00: 00 06-08 23:59 :00 No 1mg Take 0.5 tablets (1 mg total) by mouth 2 (two) times daily with breakfast and dinner for 2 days. [facility] dexAMETHaso ne (DECADRON) 2 MG tablet 2022-07 00:00: 00 06-08 23:59 :00 No 1mg Take 0.5 tablets (1 mg total) by mouth 2 (two) times daily with breakfast and dinner for 2 days. [facility] dexAMETHaso ne (DECADRON) 2 MG tablet 2022-07 00:00: 00 06-08 23:59 :00 No 1mg Take 0.5 tablets (1 mg total) by mouth 2 (two) times daily with breakfast and dinner for 2 days. [facility] dexAMETHaso ne (DECADRON) 2 MG tablet 2022-07 00:00: 00 06-08 23:59 :00 No 1mg Take 0.5 tablets (1 mg total) by mouth 2 (two) times daily with breakfast and dinner for 2 days. [facility] dexAMETHaso ne (DECADRON) 2 MG tablet 2022-07 00:00: 00 06-08 23:59 :00 No 1mg Take 0.5 tablets (1 mg total) by mouth 2 (two) times daily with breakfast and dinner for 2 days. [facility] dexAMETHaso ne (DECADRON) 2 MG tablet 2022-07 00:00: 00 06-08 23:59 :00 No 1mg Take 0.5 tablets (1 mg total) by mouth 2 (two) times daily with breakfast and dinner for 2 days. [facility] dexAMETHaso ne (DECADRON) 2 MG tablet 2022-07 00:00: 00 06-08 23:59 :00 No 1mg Take 0.5 tablets (1 mg total) by mouth 2 (two) times daily with breakfast and dinner for 2 days. [facility] dexAMETHaso ne (DECADRON) 2 MG tablet 2022-07 00:00: 00 06-08 23:59 :00 No 1mg Take 0.5 tablets (1 mg total) by mouth 2 (two) times daily with breakfast and dinner for 2 days. [facility] dexAMETHaso ne (DECADRON) 2 MG tablet 2022-07 00:00: 00 06-08 23:59 :00 No 1mg Take 0.5 tablets (1 mg total) by mouth 2 (two) times daily with breakfast and dinner for 2 days. [facility] dexAMETHaso ne (DECADRON) 2 MG tablet 2022-07 00:00: 00 06-08 23:59 :00 No 1mg Take 0.5 tablets (1 mg total) by mouth 2 (two) times daily with breakfast and dinner for 2 days. [facility] dexAMETHaso ne (DECADRON) 2 MG tablet 2022-07 00:00: 00 06-08 23:59 :00 No 1mg Take 0.5 tablets (1 mg total) by mouth 2 (two) times daily with breakfast and dinner for 2 days. [facility] dexAMETHaso ne (DECADRON) 2 MG tablet 2022-07 00:00: 00 06-08 23:59 :00 No 1mg Take 0.5 tablets (1 mg total) by mouth 2 (two) times daily with breakfast and dinner for 2 days. [facility] dexAMETHaso ne (DECADRON) 2 MG tablet 2022-07 00:00: 00 06-08 23:59 :00 No 1mg Take 0.5 tablets (1 mg total) by mouth 2 (two) times daily with breakfast and dinner for 2 days. [facility] dexAMETHaso ne (DECADRON) 2 MG tablet 2022-07 00:00: 00 06-08 23:59 :00 No 1mg Take 0.5 tablets (1 mg total) by mouth 2 (two) times daily with breakfast and dinner for 2 days. [facility] dexAMETHaso ne (DECADRON) 2 MG tablet 2022-07 00:00: 00 06-08 23:59 :00 No 1mg Take 0.5 tablets (1 mg total) by mouth 2 (two) times daily with breakfast and dinner for 2 days. [facility] dexAMETHaso ne (DECADRON) 2 MG tablet 2022-07 00:00: 00 06-08 23:59 :00 No 1mg Take 0.5 tablets (1 mg total) by mouth 2 (two) times daily with breakfast and dinner for 2 days. [facility] dexAMETHaso ne (DECADRON) 2 MG tablet 2022-07 00:00: 00 06-08 23:59 :00 No 1mg Take 0.5 tablets (1 mg total) by mouth 2 (two) times daily with breakfast and dinner for 2 days. [facility] dexAMETHaso ne (DECADRON) 2 MG tablet 2022-07 00:00: 00 06-08 23:59 :00 No 1mg Take 0.5 tablets (1 mg total) by mouth 2 (two) times daily with breakfast and dinner for 2 days. [facility] dexAMETHaso ne (DECADRON) 2 MG tablet 2022-07 00:00: 00 06-08 23:59 :00 No 1mg Take 0.5 tablets (1 mg total) by mouth 2 (two) times daily with breakfast and dinner for 2 days. [facility] dexAMETHaso ne (DECADRON) 2 MG tablet 2022-07 00:00: 00 06-08 23:59 :00 No 1mg Take 0.5 tablets (1 mg total) by mouth 2 (two) times daily with breakfast and dinner for 2 days. [facility] dexAMETHaso ne (DECADRON) 2 MG tablet 2022-07 00:00: 00 06-08 23:59 :00 No 1mg Take 0.5 tablets (1 mg total) by mouth 2 (two) times daily with breakfast and dinner for 2 days. [facility] dexAMETHaso ne (DECADRON) 2 MG tablet 2022-07 00:00: 00 06-08 23:59 :00 No 1mg Take 0.5 tablets (1 mg total) by mouth 2 (two) times daily with breakfast and dinner for 2 days. [facility] dexAMETHaso ne (DECADRON) 2 MG tablet 2022-07 00:00: 00 06-08 23:59 :00 No 1mg Take 0.5 tablets (1 mg total) by mouth 2 (two) times daily with breakfast and dinner for 2 days. [facility] dexAMETHaso ne (DECADRON) 2 MG tablet 2022-07 00:00: 00 06-08 23:59 :00 No 1mg Take 0.5 tablets (1 mg total) by mouth 2 (two) times daily with breakfast and dinner for 2 days. [facility] dexAMETHaso ne (DECADRON) 2 MG tablet 2022-07 00:00: 00 06-08 23:59 :00 No 1mg Take 0.5 tablets (1 mg total) by mouth 2 (two) times daily with breakfast and dinner for 2 days. [facility] dexAMETHaso ne (DECADRON) 2 MG tablet 2022-07 00:00: 00 06-08 23:59 :00 No 1mg Take 0.5 tablets (1 mg total) by mouth 2 (two) times daily with breakfast and dinner for 2 days. [facility] dexAMETHaso ne (DECADRON) 2 MG tablet 2022-07 00:00: 00 06-08 23:59 :00 No 1mg Take 0.5 tablets (1 mg total) by mouth 2 (two) times daily with breakfast and dinner for 2 days. [facility] dexAMETHaso ne (DECADRON) 2 MG tablet 2022-07 00:00: 00 06-08 23:59 :00 No 1mg Take 0.5 tablets (1 mg total) by mouth 2 (two) times daily with breakfast and dinner for 2 days. [facility] dexAMETHaso ne (DECADRON) 2 MG tablet 2022-07 00:00: 00 06-06 23:59 :00 No 2mg Take 1 tablet (2 mg total) by mouth 2 (two) times daily with breakfast and dinner for 1 day. [facility] dexAMETHaso ne (DECADRON) 2 MG tablet 2022-07 00:00: 00 06-06 23:59 :00 No 2mg Take 1 tablet (2 mg total) by mouth 2 (two) times daily with breakfast and dinner for 1 day. [facility] dexAMETHaso ne (DECADRON) 2 MG tablet 2022-07 00:00: 00 06-06 23:59 :00 No 2mg Take 1 tablet (2 mg total) by mouth 2 (two) times daily with breakfast and dinner for 1 day. [facility] dexAMETHaso ne (DECADRON) 2 MG tablet 2022-07 00:00: 00 06-06 23:59 :00 No 2mg Take 1 tablet (2 mg total) by mouth 2 (two) times daily with breakfast and dinner for 1 day. [facility] dexAMETHaso ne (DECADRON) 2 MG tablet 2022-07 00:00: 00 06-06 23:59 :00 No 2mg Take 1 tablet (2 mg total) by mouth 2 (two) times daily with breakfast and dinner for 1 day. [facility] dexAMETHaso ne (DECADRON) 2 MG tablet 2022-07 00:00: 00 06-06 23:59 :00 No 2mg Take 1 tablet (2 mg total) by mouth 2 (two) times daily with breakfast and dinner for 1 day. [facility] dexAMETHaso ne (DECADRON) 2 MG tablet 2022-07 00:00: 00 06-06 23:59 :00 No 2mg Take 1 tablet (2 mg total) by mouth 2 (two) times daily with breakfast and dinner for 1 day. [facility] dexAMETHaso ne (DECADRON) 2 MG tablet 2022-07 00:00: 00 06-06 23:59 :00 No 2mg Take 1 tablet (2 mg total) by mouth 2 (two) times daily with breakfast and dinner for 1 day. [facility] dexAMETHaso ne (DECADRON) 2 MG tablet 2022-07 00:00: 00 06-06 23:59 :00 No 2mg Take 1 tablet (2 mg total) by mouth 2 (two) times daily with breakfast and dinner for 1 day. [facility] dexAMETHaso ne (DECADRON) 2 MG tablet 2022-07 00:00: 00 06-06 23:59 :00 No 2mg Take 1 tablet (2 mg total) by mouth 2 (two) times daily with breakfast and dinner for 1 day. [facility] dexAMETHaso ne (DECADRON) 2 MG tablet 2022-07 00:00: 00 06-06 23:59 :00 No 2mg Take 1 tablet (2 mg total) by mouth 2 (two) times daily with breakfast and dinner for 1 day. [facility] dexAMETHaso ne (DECADRON) 2 MG tablet 2022-07 00:00: 00 06-06 23:59 :00 No 2mg Take 1 tablet (2 mg total) by mouth 2 (two) times daily with breakfast and dinner for 1 day. [facility] dexAMETHaso ne (DECADRON) 2 MG tablet 2022-07 00:00: 00 06-06 23:59 :00 No 2mg Take 1 tablet (2 mg total) by mouth 2 (two) times daily with breakfast and dinner for 1 day. [facility] dexAMETHaso ne (DECADRON) 2 MG tablet 2022-07 00:00: 00 06-06 23:59 :00 No 2mg Take 1 tablet (2 mg total) by mouth 2 (two) times daily with breakfast and dinner for 1 day. [facility] dexAMETHaso ne (DECADRON) 2 MG tablet 2022-07 00:00: 00 06-06 23:59 :00 No 2mg Take 1 tablet (2 mg total) by mouth 2 (two) times daily with breakfast and dinner for 1 day. [facility] dexAMETHaso ne (DECADRON) 2 MG tablet 2022-07 00:00: 00 06-06 23:59 :00 No 2mg Take 1 tablet (2 mg total) by mouth 2 (two) times daily with breakfast and dinner for 1 day. [facility] dexAMETHaso ne (DECADRON) 2 MG tablet 2022-07 00:00: 00 06-06 23:59 :00 No 2mg Take 1 tablet (2 mg total) by mouth 2 (two) times daily with breakfast and dinner for 1 day. [facility] dexAMETHaso ne (DECADRON) 2 MG tablet 2022-07 00:00: 00 06-06 23:59 :00 No 2mg Take 1 tablet (2 mg total) by mouth 2 (two) times daily with breakfast and dinner for 1 day. [facility] dexAMETHaso ne (DECADRON) 2 MG tablet 2022-07 00:00: 00 06-06 23:59 :00 No 2mg Take 1 tablet (2 mg total) by mouth 2 (two) times daily with breakfast and dinner for 1 day. [facility] dexAMETHaso ne (DECADRON) 2 MG tablet 2022-07 00:00: 00 06-06 23:59 :00 No 2mg Take 1 tablet (2 mg total) by mouth 2 (two) times daily with breakfast and dinner for 1 day. [facility] dexAMETHaso ne (DECADRON) 2 MG tablet 2022-07 00:00: 00 06-06 23:59 :00 No 2mg Take 1 tablet (2 mg total) by mouth 2 (two) times daily with breakfast and dinner for 1 day. [facility] dexAMETHaso ne (DECADRON) 2 MG tablet 2022-07 00:00: 00 06-06 23:59 :00 No 2mg Take 1 tablet (2 mg total) by mouth 2 (two) times daily with breakfast and dinner for 1 day. [facility] dexAMETHaso ne (DECADRON) 2 MG tablet 2022-07 00:00: 00 06-06 23:59 :00 No 2mg Take 1 tablet (2 mg total) by mouth 2 (two) times daily with breakfast and dinner for 1 day. [facility] dexAMETHaso ne (DECADRON) 2 MG tablet 2022-07 00:00: 00 06-06 23:59 :00 No 2mg Take 1 tablet (2 mg total) by mouth 2 (two) times daily with breakfast and dinner for 1 day. [facility] dexAMETHaso ne (DECADRON) 2 MG tablet 2022-07 00:00: 00 06-06 23:59 :00 No 2mg Take 1 tablet (2 mg total) by mouth 2 (two) times daily with breakfast and dinner for 1 day. [facility] dexAMETHaso ne (DECADRON) 2 MG tablet 2022-07 00:00: 00 06-06 23:59 :00 No 2mg Take 1 tablet (2 mg total) by mouth 2 (two) times daily with breakfast and dinner for 1 day. [facility] dexAMETHaso ne (DECADRON) 2 MG tablet 2022-07 00:00: 00 06-06 23:59 :00 No 2mg Take 1 tablet (2 mg total) by mouth 2 (two) times daily with breakfast and dinner for 1 day. [facility] dexAMETHaso ne (DECADRON) 2 MG tablet 2022-07 00:00: 00 06-06 23:59 :00 No 2mg Take 1 tablet (2 mg total) by mouth 2 (two) times daily with breakfast and dinner for 1 day. [facility] dexAMETHaso ne (DECADRON) 2 MG tablet 2022-07 00:00: 00 06-06 23:59 :00 No 2mg Take 1 tablet (2 mg total) by mouth 2 (two) times daily with breakfast and dinner for 1 day. [facility] dexAMETHaso ne (DECADRON) 2 MG tablet 2022-07 00:00: 00 06-06 23:59 :00 No 2mg Take 1 tablet (2 mg total) by mouth 2 (two) times daily with breakfast and dinner for 1 day. [facility] dexAMETHaso ne (DECADRON) 2 MG tablet 2022-07 00:00: 00 06-06 23:59 :00 No 2mg Take 1 tablet (2 mg total) by mouth 2 (two) times daily with breakfast and dinner for 1 day. [facility] dexAMETHaso ne (DECADRON) 2 MG tablet 2022-07 00:00: 00 06-06 23:59 :00 No 2mg Take 1 tablet (2 mg total) by mouth 2 (two) times daily with breakfast and dinner for 1 day. [facility] metoprolol succinate (TOPROL-XL) 25 MG 24 hr tablet 2022-07 17:44: 21 Yes 25mg QD Take 1 tablet (25 mg total) by mouth daily. [facility] varenicline (CHANTIX) 1 mg tablet 2022-07 17:44: 21 Yes 1mg Q.5D Take 1 tablet (1 mg total) by mouth 2 (two) times daily Give with meals and with a full glass of water.. [facility] albuterol HFA (VENTOLIN HFA) 90 mcg/actuati on inhaler 2022-07 17:44: 21 Yes 1{puff} Inhale 1 puff by mouth via inhaler every 6 (six) hours as needed for Wheezing. [facility] fluticasone -umeclidin- vilanter (Trelegy Ellipta) 200-62.5-25 mcg DsDv 2022-07 17:44: 21 Yes QD Inhale by mouth via inhaler daily. [facility] atorvastati n (LIPITOR) 20 MG tablet 2022-07 17:44: 21 Yes 20mg QD Take 1 tablet (20 mg total) by mouth daily. [facility] acetaminoph en-codeine (TYLENOL #3) 300-30 mg per tablet 2022-07 17:44: 21 Yes 1{tbl} Take 1 tablet by mouth every 4 (four) hours as needed for Pain. [facility] metoprolol succinate (TOPROL-XL) 25 MG 24 hr tablet 2022-07 17:44: 21 Yes 25mg QD Take 1 tablet (25 mg total) by mouth daily. [facility] varenicline (CHANTIX) 1 mg tablet 2022-07 17:44: 21 Yes 1mg Q.5D Take 1 tablet (1 mg total) by mouth 2 (two) times daily Give with meals and with a full glass of water.. [facility] albuterol HFA (VENTOLIN HFA) 90 mcg/actuati on inhaler 2022-07 17:44: 21 Yes 1{puff} Inhale 1 puff by mouth via inhaler every 6 (six) hours as needed for Wheezing. [facility] fluticasone -umeclidin- vilanter (Trelegy Ellipta) 200-62.5-25 mcg DsDv 2022-07 17:44: 21 Yes QD Inhale by mouth via inhaler daily. [facility] atorvastati n (LIPITOR) 20 MG tablet 2022-07 17:44: 21 Yes 20mg QD Take 1 tablet (20 mg total) by mouth daily. [facility] acetaminoph en-codeine (TYLENOL #3) 300-30 mg per tablet 2022-07 17:44: 21 Yes 1{tbl} Take 1 tablet by mouth every 4 (four) hours as needed for Pain. [facility] metoprolol succinate (TOPROL-XL) 25 MG 24 hr tablet 2022-07 17:44: 21 Yes 25mg QD Take 1 tablet (25 mg total) by mouth daily. [facility] varenicline (CHANTIX) 1 mg tablet 2022-07 17:44: 21 Yes 1mg Q.5D Take 1 tablet (1 mg total) by mouth 2 (two) times daily Give with meals and with a full glass of water.. [facility] albuterol HFA (VENTOLIN HFA) 90 mcg/actuati on inhaler 2022-07 17:44: 21 Yes 1{puff} Inhale 1 puff by mouth via inhaler every 6 (six) hours as needed for Wheezing. [facility] fluticasone -umeclidin- vilanter (Trelegy Ellipta) 200-62.5-25 mcg DsDv 2022-07 17:44: 21 Yes QD Inhale by mouth via inhaler daily. [facility] atorvastati n (LIPITOR) 20 MG tablet 2022-07 17:44: 21 Yes 20mg QD Take 1 tablet (20 mg total) by mouth daily. [facility] acetaminoph en-codeine (TYLENOL #3) 300-30 mg per tablet 2022-07 17:44: 21 Yes 1{tbl} Take 1 tablet by mouth every 4 (four) hours as needed for Pain. [facility] Naloxone (NARCAN) 4 MG/0.1ML nasal Liquid 2022-07 00:00: 00 Yes 4mg 0.1 mL (4 mg total) as needed. Cynthia gonzalez senna (SENOKOT) 8.6 mg tablet 2022-07 00:00: 00 06-18 23:59 :00 No 17.2mg Q.5D Take 2 tablets (17.2 mg total) by mouth 2 (two) times daily for 14 days. [facility] senna (SENOKOT) 8.6 mg tablet 2022-07 00:00: 00 06-18 23:59 :00 No 17.2mg Q.5D Take 2 tablets (17.2 mg total) by mouth 2 (two) times daily for 14 days. [facility] senna (SENOKOT) 8.6 mg tablet 2022-07 00:00: 00 06-18 23:59 :00 No 17.2mg Q.5D Take 2 tablets (17.2 mg total) by mouth 2 (two) times daily for 14 days. [facility] senna (SENOKOT) 8.6 mg tablet 2022-07 00:00: 00 06-18 23:59 :00 No 17.2mg Q.5D Take 2 tablets (17.2 mg total) by mouth 2 (two) times daily for 14 days. [facility] senna (SENOKOT) 8.6 mg tablet 2022-07 00:00: 00 06-18 23:59 :00 No 17.2mg Q.5D Take 2 tablets (17.2 mg total) by mouth 2 (two) times daily for 14 days. [facility] senna (SENOKOT) 8.6 mg tablet 2022-07 00:00: 00 06-18 23:59 :00 No 17.2mg Q.5D Take 2 tablets (17.2 mg total) by mouth 2 (two) times daily for 14 days. [facility] senna (SENOKOT) 8.6 mg tablet 2022-07 00:00: 00 06-18 23:59 :00 No 17.2mg Q.5D Take 2 tablets (17.2 mg total) by mouth 2 (two) times daily for 14 days. [facility] senna (SENOKOT) 8.6 mg tablet 2022-0716 00:00: 00 06-18 23:59 :00 No 17.2mg Q.5D Take 2 tablets (17.2 mg total) by mouth 2 (two) times daily for 14 days. [facility] senna (SENOKOT) 8.6 mg tablet 2022-07 00:00: 00 06-18 23:59 :00 No 17.2mg Q.5D Take 2 tablets (17.2 mg total) by mouth 2 (two) times daily for 14 days. [facility] senna (SENOKOT) 8.6 mg tablet 2022-07 00:00: 00 06-18 23:59 :00 No 17.2mg Q.5D Take 2 tablets (17.2 mg total) by mouth 2 (two) times daily for 14 days. [facility] senna (SENOKOT) 8.6 mg tablet 2022-07 00:00: 00 06-18 23:59 :00 No 17.2mg Q.5D Take 2 tablets (17.2 mg total) by mouth 2 (two) times daily for 14 days. [facility] senna (SENOKOT) 8.6 mg tablet 2022-07 00:00: 00 06-18 23:59 :00 No 17.2mg Q.5D Take 2 tablets (17.2 mg total) by mouth 2 (two) times daily for 14 days. [facility] senna (SENOKOT) 8.6 mg tablet 2022-07 00:00: 00 06-18 23:59 :00 No 17.2mg Q.5D Take 2 tablets (17.2 mg total) by mouth 2 (two) times daily for 14 days. [facility] senna (SENOKOT) 8.6 mg tablet 2022-07 00:00: 00 06-18 23:59 :00 No 17.2mg Q.5D Take 2 tablets (17.2 mg total) by mouth 2 (two) times daily for 14 days. [facility] senna (SENOKOT) 8.6 mg tablet 2022-0716 00:00: 00 06-18 23:59 :00 No 17.2mg Q.5D Take 2 tablets (17.2 mg total) by mouth 2 (two) times daily for 14 days. [facility] senna (SENOKOT) 8.6 mg tablet 2022-07 00:00: 00 06-18 23:59 :00 No 17.2mg Q.5D Take 2 tablets (17.2 mg total) by mouth 2 (two) times daily for 14 days. [facility] senna (SENOKOT) 8.6 mg tablet 2022-07 00:00: 00 06-18 23:59 :00 No 17.2mg Q.5D Take 2 tablets (17.2 mg total) by mouth 2 (two) times daily for 14 days. [facility] senna (SENOKOT) 8.6 mg tablet 2022-07 00:00: 00 06-18 23:59 :00 No 17.2mg Q.5D Take 2 tablets (17.2 mg total) by mouth 2 (two) times daily for 14 days. [facility] senna (SENOKOT) 8.6 mg tablet 2022-07 00:00: 00 06-18 23:59 :00 No 17.2mg Q.5D Take 2 tablets (17.2 mg total) by mouth 2 (two) times daily for 14 days. [facility] senna (SENOKOT) 8.6 mg tablet 2022-0716 00:00: 00 06-18 23:59 :00 No 17.2mg Q.5D Take 2 tablets (17.2 mg total) by mouth 2 (two) times daily for 14 days. [facility] senna (SENOKOT) 8.6 mg tablet 2022-0716 00:00: 00 06-18 23:59 :00 No 17.2mg Q.5D Take 2 tablets (17.2 mg total) by mouth 2 (two) times daily for 14 days. [facility] senna (SENOKOT) 8.6 mg tablet 2022-07 00:00: 00 06-18 23:59 :00 No 17.2mg Q.5D Take 2 tablets (17.2 mg total) by mouth 2 (two) times daily for 14 days. [facility] senna (SENOKOT) 8.6 mg tablet 2022-07 00:00: 00 06-18 23:59 :00 No 17.2mg Q.5D Take 2 tablets (17.2 mg total) by mouth 2 (two) times daily for 14 days. [facility] senna (SENOKOT) 8.6 mg tablet 2022-07 00:00: 00 06-18 23:59 :00 No 17.2mg Q.5D Take 2 tablets (17.2 mg total) by mouth 2 (two) times daily for 14 days. [facility] senna (SENOKOT) 8.6 mg tablet 2022-07 00:00: 00 06-18 23:59 :00 No 17.2mg Q.5D Take 2 tablets (17.2 mg total) by mouth 2 (two) times daily for 14 days. [facility] senna (SENOKOT) 8.6 mg tablet 2022-07 00:00: 00 06-18 23:59 :00 No 17.2mg Q.5D Take 2 tablets (17.2 mg total) by mouth 2 (two) times daily for 14 days. [facility] senna (SENOKOT) 8.6 mg tablet 2022-07 00:00: 00 06-18 23:59 :00 No 17.2mg Q.5D Take 2 tablets (17.2 mg total) by mouth 2 (two) times daily for 14 days. [facility] senna (SENOKOT) 8.6 mg tablet 2022-07 00:00: 00 06-18 23:59 :00 No 17.2mg Q.5D Take 2 tablets (17.2 mg total) by mouth 2 (two) times daily for 14 days. [facility] senna (SENOKOT) 8.6 mg tablet 2022-07 00:00: 00 06-18 23:59 :00 No 17.2mg Q.5D Take 2 tablets (17.2 mg total) by mouth 2 (two) times daily for 14 days. [facility] senna (SENOKOT) 8.6 mg tablet 2022-07 00:00: 00 06-18 23:59 :00 No 17.2mg Q.5D Take 2 tablets (17.2 mg total) by mouth 2 (two) times daily for 14 days. [facility] senna (SENOKOT) 8.6 mg tablet 2022-07 00:00: 00 06-18 23:59 :00 No 17.2mg Q.5D Take 2 tablets (17.2 mg total) by mouth 2 (two) times daily for 14 days. [facility] senna (SENOKOT) 8.6 mg tablet 2022-07 00:00: 00 06-18 23:59 :00 No 17.2mg Q.5D Take 2 tablets (17.2 mg total) by mouth 2 (two) times daily for 14 days. [facility] cyclobenzap rine (FLEXERIL) 10 MG tablet 2022-07 00:00: 00 06-16 00:00 :00 No 10mg Q.[id number] 3D Take 1 tablet (10 mg total) by mouth 3 (three) times daily for 10 days. [facility] methocarbam oL (ROBAXIN) 500 MG tablet 2022-07 00:00: 00 06-16 00:00 :00 No 500mg Q.25D Take 1 tablet (500 mg total) by mouth 4 (four) times daily for 10 days. [facility] cyclobenzap rine (FLEXERIL) 10 MG tablet 2022-07 00:00: 00 06-16 00:00 :00 No 10mg Q.[id number] 3D Take 1 tablet (10 mg total) by mouth 3 (three) times daily for 10 days. [facility] methocarbam oL (ROBAXIN) 500 MG tablet 2022-07 00:00: 00 06-16 00:00 :00 No 500mg Q.25D Take 1 tablet (500 mg total) by mouth 4 (four) times daily for 10 days. [facility] cyclobenzap rine (FLEXERIL) 10 MG tablet 2022-07 00:00: 00 06-16 00:00 :00 No 10mg Q.[id number] 3D Take 1 tablet (10 mg total) by mouth 3 (three) times daily for 10 days. [facility] methocarbam oL (ROBAXIN) 500 MG tablet 2022-07 00:00: 00 06-16 00:00 :00 No 500mg Q.25D Take 1 tablet (500 mg total) by mouth 4 (four) times daily for 10 days. [facility] cyclobenzap rine (FLEXERIL) 10 MG tablet 2022-07 00:00: 00 06-16 00:00 :00 No 10mg Q.[id number] 3D Take 1 tablet (10 mg total) by mouth 3 (three) times daily for 10 days. [facility] methocarbam oL (ROBAXIN) 500 MG tablet 2022-07 00:00: 00 06-16 00:00 :00 No 500mg Q.25D Take 1 tablet (500 mg total) by mouth 4 (four) times daily for 10 days. [facility] cyclobenzap rine (FLEXERIL) 10 MG tablet 2022-07 00:00: 00 06-16 00:00 :00 No 10mg Q.[id number] 3D Take 1 tablet (10 mg total) by mouth 3 (three) times daily for 10 days. [facility] methocarbam oL (ROBAXIN) 500 MG tablet 2022-07 00:00: 00 06-16 00:00 :00 No 500mg Q.25D Take 1 tablet (500 mg total) by mouth 4 (four) times daily for 10 days. [facility] cyclobenzap rine (FLEXERIL) 10 MG tablet 2022-07 00:00: 00 06-16 00:00 :00 No 10mg Q.[id number] 3D Take 1 tablet (10 mg total) by mouth 3 (three) times daily for 10 days. [facility] methocarbam oL (ROBAXIN) 500 MG tablet 2022-07 00:00: 00 06-16 00:00 :00 No 500mg Q.25D Take 1 tablet (500 mg total) by mouth 4 (four) times daily for 10 days. [facility] cyclobenzap rine (FLEXERIL) 10 MG tablet 2022-07 00:00: 00 06-16 00:00 :00 No 10mg Q.[id number] 3D Take 1 tablet (10 mg total) by mouth 3 (three) times daily for 10 days. [facility] methocarbam oL (ROBAXIN) 500 MG tablet 2022-07 00:00: 00 06-16 00:00 :00 No 500mg Q.25D Take 1 tablet (500 mg total) by mouth 4 (four) times daily for 10 days. [facility] cyclobenzap rine (FLEXERIL) 10 MG tablet 2022-07 00:00: 00 06-16 00:00 :00 No 10mg Q.[id number] 3D Take 1 tablet (10 mg total) by mouth 3 (three) times daily for 10 days. [facility] methocarbam oL (ROBAXIN) 500 MG tablet 2022-07 00:00: 00 06-16 00:00 :00 No 500mg Q.25D Take 1 tablet (500 mg total) by mouth 4 (four) times daily for 10 days. [facility] cyclobenzap rine (FLEXERIL) 10 MG tablet 2022-07 00:00: 00 06-16 00:00 :00 No 10mg Q.[id number] [id number] 3D Take 1 tablet (10 mg total) by mouth 3 (three) times daily for 10 days. [facility] methocarbam oL (ROBAXIN) 500 MG tablet 2022-07 00:00: 00 06-16 00:00 :00 No 500mg Q.25D Take 1 tablet (500 mg total) by mouth 4 (four) times daily for 10 days. [facility] cyclobenzap rine (FLEXERIL) 10 MG tablet 2022-07 00:00: 00 06-16 00:00 :00 No 10mg Q.[id number] 3D Take 1 tablet (10 mg total) by mouth 3 (three) times daily for 10 days. [facility] methocarbam oL (ROBAXIN) 500 MG tablet 2022-07 00:00: 00 06-16 00:00 :00 No 500mg Q.25D Take 1 tablet (500 mg total) by mouth 4 (four) times daily for 10 days. [facility] cyclobenzap rine (FLEXERIL) 10 MG tablet 2022-07 00:00: 00 06-16 00:00 :00 No 10mg Q.[id number] 3D Take 1 tablet (10 mg total) by mouth 3 (three) times daily for 10 days. [facility] methocarbam oL (ROBAXIN) 500 MG tablet 2022-07 00:00: 00 06-16 00:00 :00 No 500mg Q.25D Take 1 tablet (500 mg total) by mouth 4 (four) times daily for 10 days. [facility] cyclobenzap rine (FLEXERIL) 10 MG tablet 2022-07 00:00: 00 06-16 00:00 :00 No 10mg Q.[id number] 3D Take 1 tablet (10 mg total) by mouth 3 (three) times daily for 10 days. [facility] methocarbam oL (ROBAXIN) 500 MG tablet 2022-07 00:00: 00 06-16 00:00 :00 No 500mg Q.25D Take 1 tablet (500 mg total) by mouth 4 (four) times daily for 10 days. [facility] cyclobenzap rine (FLEXERIL) 10 MG tablet 2022-07 00:00: 00 06-16 00:00 :00 No 10mg Q.[id number] 3D Take 1 tablet (10 mg total) by mouth 3 (three) times daily for 10 days. [facility] methocarbam oL (ROBAXIN) 500 MG tablet 2022-07 00:00: 00 06-16 00:00 :00 No 500mg Q.25D Take 1 tablet (500 mg total) by mouth 4 (four) times daily for 10 days. [facility] cyclobenzap rine (FLEXERIL) 10 MG tablet 2022-07 00:00: 00 06-16 00:00 :00 No 10mg Q.[id number] 3D Take 1 tablet (10 mg total) by mouth 3 (three) times daily for 10 days. [facility] methocarbam oL (ROBAXIN) 500 MG tablet 2022-07 00:00: 00 06-16 00:00 :00 No 500mg Q.25D Take 1 tablet (500 mg total) by mouth 4 (four) times daily for 10 days. [facility] cyclobenzap rine (FLEXERIL) 10 MG tablet 2022-07 00:00: 00 06-16 00:00 :00 No 10mg Q.[id number] 3D Take 1 tablet (10 mg total) by mouth 3 (three) times daily for 10 days. [facility] methocarbam oL (ROBAXIN) 500 MG tablet 2022-07 00:00: 00 06-16 00:00 :00 No 500mg Q.25D Take 1 tablet (500 mg total) by mouth 4 (four) times daily for 10 days. [facility] cyclobenzap rine (FLEXERIL) 10 MG tablet 2022-07 00:00: 00 06-16 00:00 :00 No 10mg Q.[id number] 3D Take 1 tablet (10 mg total) by mouth 3 (three) times daily for 10 days. [facility] methocarbam oL (ROBAXIN) 500 MG tablet 2022-07 00:00: 00 06-16 00:00 :00 No 500mg Q.25D Take 1 tablet (500 mg total) by mouth 4 (four) times daily for 10 days. [facility] cyclobenzap rine (FLEXERIL) 10 MG tablet 2022-07 00:00: 00 06-16 00:00 :00 No 10mg Q.[id number] 3D Take 1 tablet (10 mg total) by mouth 3 (three) times daily for 10 days. [facility] methocarbam oL (ROBAXIN) 500 MG tablet 2022-07 00:00: 00 06-16 00:00 :00 No 500mg Q.25D Take 1 tablet (500 mg total) by mouth 4 (four) times daily for 10 days. [facility] cyclobenzap rine (FLEXERIL) 10 MG tablet 2022-07 00:00: 00 06-16 00:00 :00 No 10mg Q.[id number] 3D Take 1 tablet (10 mg total) by mouth 3 (three) times daily for 10 days. [facility] methocarbam oL (ROBAXIN) 500 MG tablet 2022-07 00:00: 00 06-16 00:00 :00 No 500mg Q.25D Take 1 tablet (500 mg total) by mouth 4 (four) times daily for 10 days. [facility] cyclobenzap rine (FLEXERIL) 10 MG tablet 2022-07 00:00: 00 06-16 00:00 :00 No 10mg Q.[id number] 3D Take 1 tablet (10 mg total) by mouth 3 (three) times daily for 10 days. [facility] methocarbam oL (ROBAXIN) 500 MG tablet 2022-07 00:00: 00 06-16 00:00 :00 No 500mg Q.25D Take 1 tablet (500 mg total) by mouth 4 (four) times daily for 10 days. [facility] cyclobenzap rine (FLEXERIL) 10 MG tablet 2022-07 00:00: 00 06-16 00:00 :00 No 10mg Q.[id number] 3D Take 1 tablet (10 mg total) by mouth 3 (three) times daily for 10 days. [facility] methocarbam oL (ROBAXIN) 500 MG tablet 2022-07 00:00: 00 06-16 00:00 :00 No 500mg Q.25D Take 1 tablet (500 mg total) by mouth 4 (four) times daily for 10 days. [facility] cyclobenzap rine (FLEXERIL) 10 MG tablet 2022-07 00:00: 00 06-16 00:00 :00 No 10mg Q.[id number] 3D Take 1 tablet (10 mg total) by mouth 3 (three) times daily for 10 days. [facility] methocarbam oL (ROBAXIN) 500 MG tablet 2022-07 00:00: 00 06-16 00:00 :00 No 500mg Q.25D Take 1 tablet (500 mg total) by mouth 4 (four) times daily for 10 days. [facility] cyclobenzap rine (FLEXERIL) 10 MG tablet 2022-07 00:00: 00 06-16 00:00 :00 No 10mg Q.[id number] 3D Take 1 tablet (10 mg total) by mouth 3 (three) times daily for 10 days. [facility] methocarbam oL (ROBAXIN) 500 MG tablet 2022-07 00:00: 00 06-16 00:00 :00 No 500mg Q.25D Take 1 tablet (500 mg total) by mouth 4 (four) times daily for 10 days. [facility] cyclobenzap rine (FLEXERIL) 10 MG tablet 2022-07 00:00: 00 06-16 00:00 :00 No 10mg Q.[id number] 3D Take 1 tablet (10 mg total) by mouth 3 (three) times daily for 10 days. [facility] methocarbam oL (ROBAXIN) 500 MG tablet 2022-07 00:00: 00 06-16 00:00 :00 No 500mg Q.25D Take 1 tablet (500 mg total) by mouth 4 (four) times daily for 10 days. [facility] cyclobenzap rine (FLEXERIL) 10 MG tablet 2022-07 00:00: 00 06-16 00:00 :00 No 10mg Q.[id number] 3D Take 1 tablet (10 mg total) by mouth 3 (three) times daily for 10 days. [facility] methocarbam oL (ROBAXIN) 500 MG tablet 2022-07 00:00: 00 06-16 00:00 :00 No 500mg Q.25D Take 1 tablet (500 mg total) by mouth 4 (four) times daily for 10 days. [facility] cyclobenzap rine (FLEXERIL) 10 MG tablet 2022-07 00:00: 00 06-16 00:00 :00 No 10mg Q.[id number] 3D Take 1 tablet (10 mg total) by mouth 3 (three) times daily for 10 days. [facility] methocarbam oL (ROBAXIN) 500 MG tablet 2022-07 00:00: 00 06-16 00:00 :00 No 500mg Q.25D Take 1 tablet (500 mg total) by mouth 4 (four) times daily for 10 days. [facility] cyclobenzap rine (FLEXERIL) 10 MG tablet 2022-07 00:00: 00 06-16 00:00 :00 No 10mg Q.[id number] 3D Take 1 tablet (10 mg total) by mouth 3 (three) times daily for 10 days. [facility] methocarbam oL (ROBAXIN) 500 MG tablet 2022-07 00:00: 00 06-16 00:00 :00 No 500mg Q.25D Take 1 tablet (500 mg total) by mouth 4 (four) times daily for 10 days. [facility] cyclobenzap rine (FLEXERIL) 10 MG tablet 2022-07 00:00: 00 06-16 00:00 :00 No 10mg Q.[id number] 3D Take 1 tablet (10 mg total) by mouth 3 (three) times daily for 10 days. [facility] methocarbam oL (ROBAXIN) 500 MG tablet 2022-07 00:00: 00 06-16 00:00 :00 No 500mg Q.25D Take 1 tablet (500 mg total) by mouth 4 (four) times daily for 10 days. [facility] cyclobenzap rine (FLEXERIL) 10 MG tablet 2022-07 00:00: 00 06-16 00:00 :00 No 10mg Q.[id number] 3D Take 1 tablet (10 mg total) by mouth 3 (three) times daily for 10 days. [facility] methocarbam oL (ROBAXIN) 500 MG tablet 2022-07 00:00: 00 06-16 00:00 :00 No 500mg Q.25D Take 1 tablet (500 mg total) by mouth 4 (four) times daily for 10 days. [facility] cyclobenzap rine (FLEXERIL) 10 MG tablet 2022-07 00:00: 00 06-16 00:00 :00 No 10mg Q.[id number] 3D Take 1 tablet (10 mg total) by mouth 3 (three) times daily for 10 days. [facility] methocarbam oL (ROBAXIN) 500 MG tablet 2022-07 00:00: 00 06-16 00:00 :00 No 500mg Q.25D Take 1 tablet (500 mg total) by mouth 4 (four) times daily for 10 days. [facility] cyclobenzap rine (FLEXERIL) 10 MG tablet 2022-07 00:00: 00 06-14 23:59 :00 No 10mg Q.[id number] 3D Take 1 tablet (10 mg total) by mouth 3 (three) times daily for 10 days. [facility] methocarbam oL (ROBAXIN) 500 MG tablet 2022-07 00:00: 00 06-14 23:59 :00 No 500mg Q.25D Take 1 tablet (500 mg total) by mouth 4 (four) times daily for 10 days. [facility] cyclobenzap rine (FLEXERIL) 10 MG tablet 2022-07 00:00: 00 06-14 23:59 :00 No 10mg Q.[id number] 3D Take 1 tablet (10 mg total) by mouth 3 (three) times daily for 10 days. [facility] methocarbam oL (ROBAXIN) 500 MG tablet 2022-07 00:00: 00 06-14 23:59 :00 No 500mg Q.25D Take 1 tablet (500 mg total) by mouth 4 (four) times daily for 10 days. [facility] cyclobenzap rine (FLEXERIL) 10 MG tablet 2022-07 00:00: 00 06-14 23:59 :00 No 10mg Q.[id number] 3D Take 1 tablet (10 mg total) by mouth 3 (three) times daily for 10 days. [facility] methocarbam oL (ROBAXIN) 500 MG tablet 2022-07 00:00: 00 06-14 23:59 :00 No 500mg Q.25D Take 1 tablet (500 mg total) by mouth 4 (four) times daily for 10 days. [facility] lactulose (CHRONULAC) 20 gram/30 mL solution 2022-07 00:00: 00 06-11 23:59 :00 No 20g Q.[id number] 3D Take 30 mLs (20 g total) by mouth 3 (three) times daily for 7 days. [facility] ondansetron (ZOFRAN-ODT ) 4 MG disintegrat ing tablet 2022-07 00:00: 00 06-11 23:59 :00 No 4mg Take 1 tablet (4 mg total) by mouth every 6 (six) hours as needed for up to 7 days. [facility] lactulose (CHRONULAC) 20 gram/30 mL solution 2022-07 00:00: 00 06-11 23:59 :00 No 20g Q.[id number] 3D Take 30 mLs (20 g total) by mouth 3 (three) times daily for 7 days. [facility] ondansetron (ZOFRAN-ODT ) 4 MG disintegrat ing tablet 2022-07 00:00: 00 06-11 23:59 :00 No 4mg Take 1 tablet (4 mg total) by mouth every 6 (six) hours as needed for up to 7 days. [facility] lactulose (CHRONULAC) 20 gram/30 mL solution 2022-07 00:00: 00 06-11 23:59 :00 No 20g Q.[id number] 3D Take 30 mLs (20 g total) by mouth 3 (three) times daily for 7 days. [facility] ondansetron (ZOFRAN-ODT ) 4 MG disintegrat ing tablet 2022-07 00:00: 00 06-11 23:59 :00 No 4mg Take 1 tablet (4 mg total) by mouth every 6 (six) hours as needed for up to 7 days. [facility] lactulose (CHRONULAC) 20 gram/30 mL solution 2022-07 00:00: 00 06-11 23:59 :00 No 20g Q.[id number] 3D Take 30 mLs (20 g total) by mouth 3 (three) times daily for 7 days. [facility] ondansetron (ZOFRAN-ODT ) 4 MG disintegrat ing tablet 2022-07 00:00: 00 06-11 23:59 :00 No 4mg Take 1 tablet (4 mg total) by mouth every 6 (six) hours as needed for up to 7 days. [facility] lactulose (CHRONULAC) 20 gram/30 mL solution 2022-07 00:00: 00 06-11 23:59 :00 No 20g Q.[id number] 3D Take 30 mLs (20 g total) by mouth 3 (three) times daily for 7 days. [facility] ondansetron (ZOFRAN-ODT ) 4 MG disintegrat ing tablet 2022-07 00:00: 00 06-11 23:59 :00 No 4mg Take 1 tablet (4 mg total) by mouth every 6 (six) hours as needed for up to 7 days. [facility] lactulose (CHRONULAC) 20 gram/30 mL solution 2022-07 00:00: 00 06-11 23:59 :00 No 20g Q.[id number] 3D Take 30 mLs (20 g total) by mouth 3 (three) times daily for 7 days. [facility] ondansetron (ZOFRAN-ODT ) 4 MG disintegrat ing tablet 2022-07 00:00: 00 06-11 23:59 :00 No 4mg Take 1 tablet (4 mg total) by mouth every 6 (six) hours as needed for up to 7 days. [facility] lactulose (CHRONULAC) 20 gram/30 mL solution 2022-07 00:00: 00 06-11 23:59 :00 No 20g Q.[id number] 3D Take 30 mLs (20 g total) by mouth 3 (three) times daily for 7 days. [facility] ondansetron (ZOFRAN-ODT ) 4 MG disintegrat ing tablet 2022-07 00:00: 00 06-11 23:59 :00 No 4mg Take 1 tablet (4 mg total) by mouth every 6 (six) hours as needed for up to 7 days. [facility] lactulose (CHRONULAC) 20 gram/30 mL solution 2022-07 00:00: 00 06-11 23:59 :00 No 20g Q.[id number] 3D Take 30 mLs (20 g total) by mouth 3 (three) times daily for 7 days. [facility] ondansetron (ZOFRAN-ODT ) 4 MG disintegrat ing tablet 2022-07 00:00: 00 06-11 23:59 :00 No 4mg Take 1 tablet (4 mg total) by mouth every 6 (six) hours as needed for up to 7 days. [facility] lactulose (CHRONULAC) 20 gram/30 mL solution 2022-07 00:00: 00 06-11 23:59 :00 No 20g Q.[id number] 3D Take 30 mLs (20 g total) by mouth 3 (three) times daily for 7 days. [facility] ondansetron (ZOFRAN-ODT ) 4 MG disintegrat ing tablet 2022-07 00:00: 00 06-11 23:59 :00 No 4mg Take 1 tablet (4 mg total) by mouth every 6 (six) hours as needed for up to 7 days. [facility] lactulose (CHRONULAC) 20 gram/30 mL solution 2022-07 00:00: 00 06-11 23:59 :00 No 20g Q.[id number] 3D Take 30 mLs (20 g total) by mouth 3 (three) times daily for 7 days. [facility] ondansetron (ZOFRAN-ODT ) 4 MG disintegrat ing tablet 2022-07 00:00: 00 06-11 23:59 :00 No 4mg Take 1 tablet (4 mg total) by mouth every 6 (six) hours as needed for up to 7 days. [facility] lactulose (CHRONULAC) 20 gram/30 mL solution 2022-07 00:00: 00 06-11 23:59 :00 No 20g Q.[id number] 3D Take 30 mLs (20 g total) by mouth 3 (three) times daily for 7 days. [facility] ondansetron (ZOFRAN-ODT ) 4 MG disintegrat ing tablet 2022-07 00:00: 00 06-11 23:59 :00 No 4mg Take 1 tablet (4 mg total) by mouth every 6 (six) hours as needed for up to 7 days. [facility] lactulose (CHRONULAC) 20 gram/30 mL solution 2022-07 00:00: 00 06-11 23:59 :00 No 20g Q.[id number] 3D Take 30 mLs (20 g total) by mouth 3 (three) times daily for 7 days. [facility] ondansetron (ZOFRAN-ODT ) 4 MG disintegrat ing tablet 2022-07 00:00: 00 06-11 23:59 :00 No 4mg Take 1 tablet (4 mg total) by mouth every 6 (six) hours as needed for up to 7 days. [facility] lactulose (CHRONULAC) 20 gram/30 mL solution 2022-07 00:00: 00 06-11 23:59 :00 No 20g Q.[id number] 3D Take 30 mLs (20 g total) by mouth 3 (three) times daily for 7 days. [facility] ondansetron (ZOFRAN-ODT ) 4 MG disintegrat ing tablet 2022-07 00:00: 00 06-11 23:59 :00 No 4mg Take 1 tablet (4 mg total) by mouth every 6 (six) hours as needed for up to 7 days. [facility] lactulose (CHRONULAC) 20 gram/30 mL solution 2022-07 00:00: 00 06-11 23:59 :00 No 20g Q.[id number] 3D Take 30 mLs (20 g total) by mouth 3 (three) times daily for 7 days. [facility] ondansetron (ZOFRAN-ODT ) 4 MG disintegrat ing tablet 2022-07 00:00: 00 06-11 23:59 :00 No 4mg Take 1 tablet (4 mg total) by mouth every 6 (six) hours as needed for up to 7 days. [facility] lactulose (CHRONULAC) 20 gram/30 mL solution 2022-07 00:00: 00 06-11 23:59 :00 No 20g Q.[id number] 3D Take 30 mLs (20 g total) by mouth 3 (three) times daily for 7 days. [facility] ondansetron (ZOFRAN-ODT ) 4 MG disintegrat ing tablet 2022-07 00:00: 00 06-11 23:59 :00 No 4mg Take 1 tablet (4 mg total) by mouth every 6 (six) hours as needed for up to 7 days. [facility] lactulose (CHRONULAC) 20 gram/30 mL solution 2022-07 00:00: 00 06-11 23:59 :00 No 20g Q.[id number] 3D Take 30 mLs (20 g total) by mouth 3 (three) times daily for 7 days. [facility] ondansetron (ZOFRAN-ODT ) 4 MG disintegrat ing tablet 2022-07 00:00: 00 06-11 23:59 :00 No 4mg Take 1 tablet (4 mg total) by mouth every 6 (six) hours as needed for up to 7 days. [facility] lactulose (CHRONULAC) 20 gram/30 mL solution 2022-07 00:00: 00 06-11 23:59 :00 No 20g Q.[id number] 3D Take 30 mLs (20 g total) by mouth 3 (three) times daily for 7 days. [facility] ondansetron (ZOFRAN-ODT ) 4 MG disintegrat ing tablet 2022-07 00:00: 00 06-11 23:59 :00 No 4mg Take 1 tablet (4 mg total) by mouth every 6 (six) hours as needed for up to 7 days. [facility] lactulose (CHRONULAC) 20 gram/30 mL solution 2022-07 00:00: 00 06-11 23:59 :00 No 20g Q.[id number] 3D Take 30 mLs (20 g total) by mouth 3 (three) times daily for 7 days. [facility] ondansetron (ZOFRAN-ODT ) 4 MG disintegrat ing tablet 2022-07 00:00: 00 06-11 23:59 :00 No 4mg Take 1 tablet (4 mg total) by mouth every 6 (six) hours as needed for up to 7 days. [facility] lactulose (CHRONULAC) 20 gram/30 mL solution 2022-07 00:00: 00 06-11 23:59 :00 No 20g Q.[id number] 3D Take 30 mLs (20 g total) by mouth 3 (three) times daily for 7 days. [facility] ondansetron (ZOFRAN-ODT ) 4 MG disintegrat ing tablet 2022-07 00:00: 00 06-11 23:59 :00 No 4mg Take 1 tablet (4 mg total) by mouth every 6 (six) hours as needed for up to 7 days. [facility] lactulose (CHRONULAC) 20 gram/30 mL solution 2022-07 00:00: 00 06-11 23:59 :00 No 20g Q.[id number] 3D Take 30 mLs (20 g total) by mouth 3 (three) times daily for 7 days. [facility] ondansetron (ZOFRAN-ODT ) 4 MG disintegrat ing tablet 2022-07 00:00: 00 06-11 23:59 :00 No 4mg Take 1 tablet (4 mg total) by mouth every 6 (six) hours as needed for up to 7 days. [facility] lactulose (CHRONULAC) 20 gram/30 mL solution 2022-07 00:00: 00 06-11 23:59 :00 No 20g Q.[id number] 3D Take 30 mLs (20 g total) by mouth 3 (three) times daily for 7 days. [facility] ondansetron (ZOFRAN-ODT ) 4 MG disintegrat ing tablet 2022-07 00:00: 00 06-11 23:59 :00 No 4mg Take 1 tablet (4 mg total) by mouth every 6 (six) hours as needed for up to 7 days. [facility] lactulose (CHRONULAC) 20 gram/30 mL solution 2022-07 00:00: 00 06-11 23:59 :00 No 20g Q.[id number] 3D Take 30 mLs (20 g total) by mouth 3 (three) times daily for 7 days. [facility] ondansetron (ZOFRAN-ODT ) 4 MG disintegrat ing tablet 2022-07 00:00: 00 06-11 23:59 :00 No 4mg Take 1 tablet (4 mg total) by mouth every 6 (six) hours as needed for up to 7 days. [facility] lactulose (CHRONULAC) 20 gram/30 mL solution 2022-07 00:00: 00 06-11 23:59 :00 No 20g Q.[id number] 3D Take 30 mLs (20 g total) by mouth 3 (three) times daily for 7 days. [facility] ondansetron (ZOFRAN-ODT ) 4 MG disintegrat ing tablet 2022-07 00:00: 00 06-11 23:59 :00 No 4mg Take 1 tablet (4 mg total) by mouth every 6 (six) hours as needed for up to 7 days. [facility] lactulose (CHRONULAC) 20 gram/30 mL solution 2022-07 00:00: 00 06-11 23:59 :00 No 20g Q.[id number] 3D Take 30 mLs (20 g total) by mouth 3 (three) times daily for 7 days. [facility] ondansetron (ZOFRAN-ODT ) 4 MG disintegrat ing tablet 2022-07 00:00: 00 06-11 23:59 :00 No 4mg Take 1 tablet (4 mg total) by mouth every 6 (six) hours as needed for up to 7 days. [facility] lactulose (CHRONULAC) 20 gram/30 mL solution 2022-07 00:00: 00 06-11 23:59 :00 No 20g Q.[id number] 3D Take 30 mLs (20 g total) by mouth 3 (three) times daily for 7 days. [facility] ondansetron (ZOFRAN-ODT ) 4 MG disintegrat ing tablet 2022-07 00:00: 00 06-11 23:59 :00 No 4mg Take 1 tablet (4 mg total) by mouth every 6 (six) hours as needed for up to 7 days. [facility] lactulose (CHRONULAC) 20 gram/30 mL solution 2022-07 00:00: 00 06-11 23:59 :00 No 20g Q.[id number] 3D Take 30 mLs (20 g total) by mouth 3 (three) times daily for 7 days. [facility] ondansetron (ZOFRAN-ODT ) 4 MG disintegrat ing tablet 2022-07 00:00: 00 06-11 23:59 :00 No 4mg Take 1 tablet (4 mg total) by mouth every 6 (six) hours as needed for up to 7 days. [facility] lactulose (CHRONULAC) 20 gram/30 mL solution 2022-07 00:00: 00 06-11 23:59 :00 No 20g Q.[id number] 3D Take 30 mLs (20 g total) by mouth 3 (three) times daily for 7 days. [facility] ondansetron (ZOFRAN-ODT ) 4 MG disintegrat ing tablet 2022-07 00:00: 00 06-11 23:59 :00 No 4mg Take 1 tablet (4 mg total) by mouth every 6 (six) hours as needed for up to 7 days. [facility] lactulose (CHRONULAC) 20 gram/30 mL solution 2022-07 00:00: 00 06-11 23:59 :00 No 20g Q.[id number] 3D Take 30 mLs (20 g total) by mouth 3 (three) times daily for 7 days. [facility] ondansetron (ZOFRAN-ODT ) 4 MG disintegrat ing tablet 2022-07 00:00: 00 06-11 23:59 :00 No 4mg Take 1 tablet (4 mg total) by mouth every 6 (six) hours as needed for up to 7 days. [facility] lactulose (CHRONULAC) 20 gram/30 mL solution 2022-07 00:00: 00 06-11 23:59 :00 No 20g Q.[id number] 3D Take 30 mLs (20 g total) by mouth 3 (three) times daily for 7 days. [facility] ondansetron (ZOFRAN-ODT ) 4 MG disintegrat ing tablet 2022-07 00:00: 00 06-11 23:59 :00 No 4mg Take 1 tablet (4 mg total) by mouth every 6 (six) hours as needed for up to 7 days. [facility] lactulose (CHRONULAC) 20 gram/30 mL solution 2022-07 00:00: 00 06-11 23:59 :00 No 20g Q.[id number] 3D Take 30 mLs (20 g total) by mouth 3 (three) times daily for 7 days. [facility] ondansetron (ZOFRAN-ODT ) 4 MG disintegrat ing tablet 2022-07 00:00: 00 06-11 23:59 :00 No 4mg Take 1 tablet (4 mg total) by mouth every 6 (six) hours as needed for up to 7 days. [facility] lactulose (CHRONULAC) 20 gram/30 mL solution 2022-07 00:00: 00 06-11 23:59 :00 No 20g Q.[id number] 3D Take 30 mLs (20 g total) by mouth 3 (three) times daily for 7 days. [facility] ondansetron (ZOFRAN-ODT ) 4 MG disintegrat ing tablet 2022-07 00:00: 00 06-11 23:59 :00 No 4mg Take 1 tablet (4 mg total) by mouth every 6 (six) hours as needed for up to 7 days. [facility] lactulose (CHRONULAC) 20 gram/30 mL solution 2022-07 00:00: 00 06-11 23:59 :00 No 20g Q.[id number] 3D Take 30 mLs (20 g total) by mouth 3 (three) times daily for 7 days. [facility] ondansetron (ZOFRAN-ODT ) 4 MG disintegrat ing tablet 2022-07 00:00: 00 06-11 23:59 :00 No 4mg Take 1 tablet (4 mg total) by mouth every 6 (six) hours as needed for up to 7 days. [facility] metoprolol succinate (TOPROL-XL) 25 MG 24 hr tablet 2022-07 15:23: 22 Yes 25mg QD Take 1 tablet (25 mg total) by mouth daily. [facility] varenicline (CHANTIX) 1 mg tablet 2022-07 15:23: 22 Yes 1mg Q.5D Take 1 tablet (1 mg total) by mouth 2 (two) times daily Give with meals and with a full glass of water.. [facility] albuterol HFA (VENTOLIN HFA) 90 mcg/actuati on inhaler 2022-07 15:23: 22 Yes 1{puff} Inhale 1 puff by mouth via inhaler every 6 (six) hours as needed for Wheezing. [facility] fluticasone -umeclidin- vilanter (Trelegy Ellipta) 200-62.5-25 mcg DsDv 2022-07 15:23: 22 Yes QD Inhale by mouth via inhaler daily. [facility] atorvastati n (LIPITOR) 20 MG tablet 2022-07 15:23: 22 Yes 20mg QD Take 1 tablet (20 mg total) by mouth daily. [facility] acetaminoph en-codeine (TYLENOL #3) 300-30 mg per tablet 2022-07 15:23: 22 Yes 1{tbl} Take 1 tablet by mouth every 4 (four) hours as needed for Pain. [facility] acetaminoph en-codeine (TYLENOL #3) 300-30 mg per tablet 2022-07 09:42: 02 Yes 1{tbl} Take 1 tablet by mouth every 4 (four) hours as needed for Pain. Max Daily Amount: 6 tablets [facility] acetaminoph en-codeine (TYLENOL #3) 300-30 mg per tablet 2022-07 09:42: 02 Yes 1{tbl} Take 1 tablet by mouth every 4 (four) hours as needed for Pain. Max Daily Amount: 6 tablets [facility] varenicline (CHANTIX) 1 mg tablet 2022-07 09:40: 04 Yes 1mg Q.5D Take 1 tablet (1 mg total) by mouth 2 (two) times daily Give with meals and with a full glass of water.. [facility] albuterol HFA (VENTOLIN HFA) 90 mcg/actuati on inhaler 2022-07 09:40: 04 Yes 1{puff} Inhale 1 puff by mouth via inhaler every 6 (six) hours as needed for Wheezing. [facility] fluticasone -umeclidin- vilanter (Trelegy Ellipta) 200-62.5-25 mcg DsDv 2022-07 09:40: 04 Yes QD Inhale by mouth via inhaler daily. [facility] atorvastati n (LIPITOR) 20 MG tablet 2022-07 09:40: 04 Yes 20mg QD Take 1 tablet (20 mg total) by mouth daily. [facility] varenicline (CHANTIX) 1 mg tablet 2022-07 09:40: 04 Yes 1mg Q.5D Take 1 tablet (1 mg total) by mouth 2 (two) times daily Give with meals and with a full glass of water.. [facility] albuterol HFA (VENTOLIN HFA) 90 mcg/actuati on inhaler 2022-07 09:40: 04 Yes 1{puff} Inhale 1 puff by mouth via inhaler every 6 (six) hours as needed for Wheezing. [facility] fluticasone -umeclidin- vilanter (Trelegy Ellipta) 200-62.5-25 mcg DsDv 2022-07 09:40: 04 Yes QD Inhale by mouth via inhaler daily. [facility] atorvastati n (LIPITOR) 20 MG tablet 2022-07 09:40: 04 Yes 20mg QD Take 1 tablet (20 mg total) by mouth daily. [facility] metoprolol succinate (TOPROL-XL) 25 MG 24 hr tablet 2022-07 09:13: 28 Yes 25mg QD Take 1 tablet (25 mg total) by mouth daily. [facility] metoprolol succinate (TOPROL-XL) 25 MG 24 hr tablet 2022-07 09:13: 28 Yes 25mg QD Take 1 tablet (25 mg total) by mouth daily. [facility] Atorvastati n Calcium 20 MG oral [...] tablet (20 mg total) by mouth daily. [facility] furosemide (LASIX) 20 MG tablet 04-03 00:00: 00 04-02 23:59 :00 No 20mg QD Take 1 tablet (20 mg total) by mouth daily. [facility] DULoxetine (CYMBALTA) 30 MG capsule 04-03 00:00: 00 04-02 23:59 :00 No 30mg QD Take 1 capsule (30 mg total) by mouth daily. [facility] furosemide (LASIX) 20 MG tablet 04-03 00:00: 00 04-02 23:59 :00 No 20mg QD Take 1 tablet (20 mg total) by mouth daily. [facility] lisinopriL (PRINIVIL,Z ESTRIL) 5 MG tablet 04-03 00:00: 00 04-02 23:59 :00 No 5mg QD Take 1 tablet (5 mg total) by mouth daily. [facility] furosemide (LASIX) 20 MG tablet 04-03 00:00: 00 04-02 23:59 :00 No 20mg QD Take 1 tablet (20 mg total) by mouth daily. [facility] furosemide (LASIX) 20 MG tablet 04-03 00:00: 00 04-02 23:59 :00 No 20mg QD Take 1 tablet (20 mg total) by mouth daily. [facility] furosemide (LASIX) 20 MG tablet -15 00:00: 00 04-02 23:59 :00 No 20mg QD Take 1 tablet (20 mg total) by mouth daily. [facility] furosemide (LASIX) 20 MG tablet -15 00:00: 00 04-02 23:59 :00 No 20mg QD Take 1 tablet (20 mg total) by mouth daily. [facility] furosemide (LASIX) 20 MG tablet -15 00:00: 00 04-02 23:59 :00 No 20mg QD Take 1 tablet (20 mg total) by mouth daily. [facility] furosemide (LASIX) 20 MG tablet 04-03 00:00: 00 04-02 23:59 :00 No 20mg QD Take 1 tablet (20 mg total) by mouth daily. [facility] DULoxetine (CYMBALTA) 30 MG capsule 04-03 00:00: 00 04-02 23:59 :00 No 30mg QD Take 1 capsule (30 mg total) by mouth daily. [facility] furosemide (LASIX) 20 MG tablet 04-03 00:00: 00 04-02 23:59 :00 No 20mg QD Take 1 tablet (20 mg total) by mouth daily. [facility] lisinopriL (PRINIVIL,Z ESTRIL) 5 MG tablet 15 00:00: 00 04-02 23:59 :00 No 5mg QD Take 1 tablet (5 mg total) by mouth daily. [facility] furosemide (LASIX) 20 MG tablet -15 00:00: 00 04-02 23:59 :00 No 20mg QD Take 1 tablet (20 mg total) by mouth daily. [facility] furosemide (LASIX) 20 MG tablet 0 -15 00:00: 00 04-02 23:59 :00 No 20mg QD Take 1 tablet (20 mg total) by mouth daily. [facility] furosemide (LASIX) 20 MG tablet 2022-0 -15 00:00: 00 04-02 23:59 :00 No 20mg QD Take 1 tablet (20 mg total) by mouth daily. [facility] furosemide (LASIX) 20 MG tablet 2022-0 -15 00:00: 00 04-02 23:59 :00 No 20mg QD Take 1 tablet (20 mg total) by mouth daily. [facility] furosemide (LASIX) 20 MG tablet 0 -15 00:00: 00 04-02 23:59 :00 No 20mg QD Take 1 tablet (20 mg total) by mouth daily. [facility] furosemide (LASIX) 20 MG tablet 0 -15 00:00: 00 04-02 23:59 :00 No 20mg QD Take 1 tablet (20 mg total) by mouth daily. [facility] furosemide (LASIX) 20 MG tablet 0 15 00:00: 00 04-02 23:59 :00 No 20mg QD Take 1 tablet (20 mg total) by mouth daily. [facility] DULoxetine (CYMBALTA) 30 MG capsule - 00:00: 00 04-02 23:59 :00 No 30mg QD Take 1 capsule (30 mg total) by mouth daily. [facility] lisinopriL (PRINIVIL,Z ESTRIL) 5 MG tablet -15 00:00: 00 04-02 23:59 :00 No 5mg QD Take 1 tablet (5 mg total) by mouth daily. [facility] furosemide (LASIX) 20 MG tablet 0 -15 00:00: 00 04-02 23:59 :00 No 20mg QD Take 1 tablet (20 mg total) by mouth daily. [facility] furosemide (LASIX) 20 MG tablet 2022-0 -15 00:00: 00 04-02 23:59 :00 No 20mg QD Take 1 tablet (20 mg total) by mouth daily. [facility] furosemide (LASIX) 20 MG tablet 0 -15 00:00: 00 04-02 23:59 :00 No 20mg QD Take 1 tablet (20 mg total) by mouth daily. [facility] furosemide (LASIX) 20 MG tablet 0 -15 00:00: 00 04-02 23:59 :00 No 20mg QD Take 1 tablet (20 mg total) by mouth daily. [facility] furosemide (LASIX) 20 MG tablet 0 -15 00:00: 00 04-02 23:59 :00 No 20mg QD Take 1 tablet (20 mg total) by mouth daily. [facility] furosemide (LASIX) 20 MG tablet 0 - 00:00: 00 04-02 23:59 :00 No 20mg QD Take 1 tablet (20 mg total) by mouth daily. [facility] furosemide (LASIX) 20 MG tablet 04-03 00:00: 00 04-02 23:59 :00 No 20mg QD Take 1 tablet (20 mg total) by mouth daily. [facility] DULoxetine (CYMBALTA) 30 MG capsule 04-03 00:00: 00 04-02 23:59 :00 No 30mg QD Take 1 capsule (30 mg total) by mouth daily. [facility] lisinopriL (PRINIVIL,Z ESTRIL) 5 MG tablet 15 00:00: 00 04-02 23:59 :00 No 5mg QD Take 1 tablet (5 mg total) by mouth daily. [facility] furosemide (LASIX) 20 MG tablet 2022-0 -15 00:00: 00 04-02 23:59 :00 No 20mg QD Take 1 tablet (20 mg total) by mouth daily. [facility] furosemide (LASIX) 20 MG tablet 2022-0 -15 00:00: 00 04-02 23:59 :00 No 20mg QD Take 1 tablet (20 mg total) by mouth daily. [facility] DULoxetine (CYMBALTA) 30 MG capsule 0 -15 00:00: 00 04-02 23:59 :00 No 30mg QD Take 1 capsule (30 mg total) by mouth daily. [facility] lisinopriL (PRINIVIL,Z ESTRIL) 5 MG tablet 0 -15 00:00: 00 04-02 23:59 :00 No 5mg QD Take 1 tablet (5 mg total) by mouth daily. [facility] furosemide (LASIX) 20 MG tablet 2022-0 -15 00:00: 00 04-02 23:59 :00 No 20mg QD Take 1 tablet (20 mg total) by mouth daily. [facility] DULoxetine (CYMBALTA) 30 MG capsule 2022-0 15 00:00: 00 04-02 23:59 :00 No 30mg QD Take 1 capsule (30 mg total) by mouth daily. [facility] lisinopriL (PRINIVIL,Z ESTRIL) 5 MG tablet 2022-0 -15 00:00: 00 04-02 23:59 :00 No 5mg QD Take 1 tablet (5 mg total) by mouth daily. [facility] furosemide (LASIX) 20 MG tablet 0 15 00:00: 00 04-02 23:59 :00 No 20mg QD Take 1 tablet (20 mg total) by mouth daily. [facility] DULoxetine (CYMBALTA) 30 MG capsule 2022-0 -15 00:00: 00 04-02 23:59 :00 No 30mg QD Take 1 capsule (30 mg total) by mouth daily. [facility] lisinopriL (PRINIVIL,Z ESTRIL) 5 MG tablet 2022-0 -15 00:00: 00 04-02 23:59 :00 No 5mg QD Take 1 tablet (5 mg total) by mouth daily. [facility] furosemide (LASIX) 20 MG tablet 2022-0 9-15 00:00: 00 04-02 23:59 :00 No 20mg QD Take 1 tablet (20 mg total) by mouth daily. [facility] DULoxetine (CYMBALTA) 30 MG capsule 2022-0 -15 00:00: 00 04-02 23:59 :00 No 30mg QD Take 1 capsule (30 mg total) by mouth daily. [facility] lisinopriL (PRINIVIL,Z ESTRIL) 5 MG tablet 2022-0 9-15 00:00: 00 04-02 23:59 :00 No 5mg QD Take 1 tablet (5 mg total) by mouth daily. [facility] furosemide (LASIX) 20 MG tablet 2022-0 -15 00:00: 00 04-02 23:59 :00 No 20mg QD Take 1 tablet (20 mg total) by mouth daily. [facility] DULoxetine (CYMBALTA) 30 MG capsule 2022-0 -15 00:00: 00 04-02 23:59 :00 No 30mg QD Take 1 capsule (30 mg total) by mouth daily. [facility] lisinopriL (PRINIVIL,Z ESTRIL) 5 MG tablet 0 -15 00:00: 00 04-02 23:59 :00 No 5mg QD Take 1 tablet (5 mg total) by mouth daily. [facility] furosemide (LASIX) 20 MG tablet 0 -15 00:00: 00 04-02 23:59 :00 No 20mg QD Take 1 tablet (20 mg total) by mouth daily. [facility] DULoxetine (CYMBALTA) 30 MG capsule 2022-0 -15 00:00: 00 04-02 23:59 :00 No 30mg QD Take 1 capsule (30 mg total) by mouth daily. [facility] furosemide (LASIX) 20 MG tablet 2022-0 -15 00:00: 00 04-02 23:59 :00 No 20mg QD Take 1 tablet (20 mg total) by mouth daily. [facility] DULoxetine (CYMBALTA) 30 MG capsule 2022-0 9-15 00:00: 00 04-02 23:59 :00 No 30mg QD Take 1 capsule (30 mg total) by mouth daily. [facility] furosemide (LASIX) 20 MG tablet 2022-0 9-15 00:00: 00 04-02 23:59 :00 No 20mg QD Take 1 tablet (20 mg total) by mouth daily. [facility] DULoxetine (CYMBALTA) 30 MG capsule 2022-0 9-15 00:00: 00 04-02 23:59 :00 No 30mg QD Take 1 capsule (30 mg total) by mouth daily. [facility] furosemide (LASIX) 20 MG tablet 2022-0 9-15 00:00: 00 04-02 23:59 :00 No 20mg QD Take 1 tablet (20 mg total) by mouth daily. [facility] DULoxetine (CYMBALTA) 30 MG capsule 2022-0 -15 00:00: 00 04-02 23:59 :00 No 30mg QD Take 1 capsule (30 mg total) by mouth daily. [facility] furosemide (LASIX) 20 MG tablet 2022-0 9-15 00:00: 00 04-02 23:59 :00 No 20mg QD Take 1 tablet (20 mg total) by mouth daily. [facility] furosemide (LASIX) 20 MG tablet 2022-0 9-15 00:00: 00 04-02 23:59 :00 No 20mg QD Take 1 tablet (20 mg total) by mouth daily. [facility] furosemide (LASIX) 20 MG tablet 2022-0 9-15 00:00: 00 09-07 00:00 :00 No 20mg QD Take 1 tablet (20 mg total) by mouth daily. [facility] furosemide (LASIX) 20 MG tablet 2022-0 9-15 00:00: 00 09-07 00:00 :00 No 20mg QD Take 1 tablet (20 mg total) by mouth daily. [facility] furosemide (LASIX) 20 MG tablet 2022-0 9-15 00:00: 00 09-07 00:00 :00 No 20mg QD Take 1 tablet (20 mg total) by mouth daily. [facility] furosemide (LASIX) 20 MG tablet 2022-0 9-15 00:00: 00 09-07 00:00 :00 No 20mg QD Take 1 tablet (20 mg total) by mouth daily. [facility] furosemide (LASIX) 20 MG tablet 04-03 00:00: 00 09-07 00:00 :00 No 20mg QD Take 1 tablet (20 mg total) by mouth daily. [facility] furosemide (LASIX) 20 MG tablet 04-03 00:00: 00 09-07 00:00 :00 No 20mg QD Take 1 tablet (20 mg total) by mouth daily. [facility] aspirin 81 MG EC tablet 04-03 00:00: 00 07-02 23:59 :00 No 81mg QD Take 1 tablet (81 mg total) by mouth daily for 90 days. [facility] divalproex (DEPAKOTE) 500 MG EC tablet 04-03 00:00: 00 07-02 23:59 :00 No 500mg Q.5D Take 1 tablet (500 mg total) by mouth 2 (two) times daily for 90 days. [facility] gabapentin (NEURONTIN) 300 MG capsule 04-03 00:00: 00 07-02 23:59 :00 No 300mg Q.[id number] 3D Take 1 capsule (300 mg total) by mouth 3 (three) times daily for 90 days. [facility] aspirin 81 MG EC tablet 04-03 00:00: 00 07-02 23:59 :00 No 81mg QD Take 1 tablet (81 mg total) by mouth daily for 90 days. [facility] divalproex (DEPAKOTE) 500 MG EC tablet 04-03 00:00: 00 07-02 23:59 :00 No 500mg Q.5D Take 1 tablet (500 mg total) by mouth 2 (two) times daily for 90 days. [facility] gabapentin (NEURONTIN) 300 MG capsule 04-03 00:00: 00 07-02 23:59 :00 No 300mg Q.[id number] 3D Take 1 capsule (300 mg total) by mouth 3 (three) times daily for 90 days. [facility] aspirin 81 MG EC tablet 04-03 00:00: 00 07-02 23:59 :00 No 81mg QD Take 1 tablet (81 mg total) by mouth daily for 90 days. [facility] divalproex (DEPAKOTE) 500 MG EC tablet 04-03 00:00: 00 07-02 23:59 :00 No 500mg Q.5D Take 1 tablet (500 mg total) by mouth 2 (two) times daily for 90 days. [facility] gabapentin (NEURONTIN) 300 MG capsule 04-03 00:00: 00 07-02 23:59 :00 No 300mg Q.[id number] 3D Take 1 capsule (300 mg total) by mouth 3 (three) times daily for 90 days. [facility] aspirin 81 MG EC tablet 04-03 00:00: 00 07-02 23:59 :00 No 81mg QD Take 1 tablet (81 mg total) by mouth daily for 90 days. [facility] divalproex (DEPAKOTE) 500 MG EC tablet 04-03 00:00: 00 07-02 23:59 :00 No 500mg Q.5D Take 1 tablet (500 mg total) by mouth 2 (two) times daily for 90 days. [facility] gabapentin (NEURONTIN) 300 MG capsule 04-03 00:00: 00 07-02 23:59 :00 No 300mg Q.[id number] 3D Take 1 capsule (300 mg total) by mouth 3 (three) times daily for 90 days. [facility] aspirin 81 MG EC tablet 04-03 00:00: 00 07-02 23:59 :00 No 81mg QD Take 1 tablet (81 mg total) by mouth daily for 90 days. [facility] divalproex (DEPAKOTE) 500 MG EC tablet 04-03 00:00: 00 07-02 23:59 :00 No 500mg Q.5D Take 1 tablet (500 mg total) by mouth 2 (two) times daily for 90 days. [facility] gabapentin (NEURONTIN) 300 MG capsule 04-03 00:00: 00 07-02 23:59 :00 No 300mg Q.[id number] 3D Take 1 capsule (300 mg total) by mouth 3 (three) times daily for 90 days. [facility] aspirin 81 MG EC tablet 04-03 00:00: 00 07-02 23:59 :00 No 81mg QD Take 1 tablet (81 mg total) by mouth daily for 90 days. [facility] divalproex (DEPAKOTE) 500 MG EC tablet 04-03 00:00: 00 07-02 23:59 :00 No 500mg Q.5D Take 1 tablet (500 mg total) by mouth 2 (two) times daily for 90 days. [facility] gabapentin (NEURONTIN) 300 MG capsule 04-03 00:00: 00 07-02 23:59 :00 No 300mg Q.[id number] 3D Take 1 capsule (300 mg total) by mouth 3 (three) times daily for 90 days. [facility] aspirin 81 MG EC tablet 04-03 00:00: 00 07-02 23:59 :00 No 81mg QD Take 1 tablet (81 mg total) by mouth daily for 90 days. [facility] divalproex (DEPAKOTE) 500 MG EC tablet 04-03 00:00: 00 07-02 23:59 :00 No 500mg Q.5D Take 1 tablet (500 mg total) by mouth 2 (two) times daily for 90 days. [facility] gabapentin (NEURONTIN) 300 MG capsule 04-03 00:00: 00 07-02 23:59 :00 No 300mg Q.[id number] 3D Take 1 capsule (300 mg total) by mouth 3 (three) times daily for 90 days. [facility] aspirin 81 MG EC tablet 04-03 00:00: 00 07-02 23:59 :00 No 81mg QD Take 1 tablet (81 mg total) by mouth daily for 90 days. [facility] divalproex (DEPAKOTE) 500 MG EC tablet 04-03 00:00: 00 07-02 23:59 :00 No 500mg Q.5D Take 1 tablet (500 mg total) by mouth 2 (two) times daily for 90 days. [facility] gabapentin (NEURONTIN) 300 MG capsule 04-03 00:00: 00 07-02 23:59 :00 No 300mg Q.[id number] 3D Take 1 capsule (300 mg total) by mouth 3 (three) times daily for 90 days. [facility] aspirin 81 MG EC tablet 04-03 00:00: 00 07-02 23:59 :00 No 81mg QD Take 1 tablet (81 mg total) by mouth daily for 90 days. [facility] divalproex (DEPAKOTE) 500 MG EC tablet 04-03 00:00: 00 07-02 23:59 :00 No 500mg Q.5D Take 1 tablet (500 mg total) by mouth 2 (two) times daily for 90 days. [facility] gabapentin (NEURONTIN) 300 MG capsule 04-03 00:00: 00 07-02 23:59 :00 No 300mg Q.[id number] 3D Take 1 capsule (300 mg total) by mouth 3 (three) times daily for 90 days. [facility] aspirin 81 MG EC tablet 04-03 00:00: 00 07-02 23:59 :00 No 81mg QD Take 1 tablet (81 mg total) by mouth daily for 90 days. [facility] divalproex (DEPAKOTE) 500 MG EC tablet 04-03 00:00: 00 07-02 23:59 :00 No 500mg Q.5D Take 1 tablet (500 mg total) by mouth 2 (two) times daily for 90 days. [facility] gabapentin (NEURONTIN) 300 MG capsule 15 00:00: 00 07-02 23:59 :00 No 300mg Q.[id number] 3D Take 1 capsule (300 mg total) by mouth 3 (three) times daily for 90 days. [facility] aspirin 81 MG EC tablet 15 00:00: 00 07-02 23:59 :00 No 81mg QD Take 1 tablet (81 mg total) by mouth daily for 90 days. [facility] divalproex (DEPAKOTE) 500 MG EC tablet 04-03 00:00: 00 07-02 23:59 :00 No 500mg Q.5D Take 1 tablet (500 mg total) by mouth 2 (two) times daily for 90 days. [facility] gabapentin (NEURONTIN) 300 MG capsule 04-03 00:00: 00 07-02 23:59 :00 No 300mg Q.[id number] 3D Take 1 capsule (300 mg total) by mouth 3 (three) times daily for 90 days. [facility] aspirin 81 MG EC tablet 04-03 00:00: 00 07-02 23:59 :00 No 81mg QD Take 1 tablet (81 mg total) by mouth daily for 90 days. [facility] divalproex (DEPAKOTE) 500 MG EC tablet 04-03 00:00: 00 07-02 23:59 :00 No 500mg Q.5D Take 1 tablet (500 mg total) by mouth 2 (two) times daily for 90 days. [facility] gabapentin (NEURONTIN) 300 MG capsule 15 00:00: 00 07-02 23:59 :00 No 300mg Q.[id number] 3D Take 1 capsule (300 mg total) by mouth 3 (three) times daily for 90 days. [facility] aspirin 81 MG EC tablet -15 00:00: 00 07-02 23:59 :00 No 81mg QD Take 1 tablet (81 mg total) by mouth daily for 90 days. [facility] divalproex (DEPAKOTE) 500 MG EC tablet 04-03 00:00: 00 07-02 23:59 :00 No 500mg Q.5D Take 1 tablet (500 mg total) by mouth 2 (two) times daily for 90 days. [facility] gabapentin (NEURONTIN) 300 MG capsule 04-03 00:00: 00 07-02 23:59 :00 No 300mg Q.[id number] 3D Take 1 capsule (300 mg total) by mouth 3 (three) times daily for 90 days. [facility] aspirin 81 MG EC tablet 04-03 00:00: 00 07-02 23:59 :00 No 81mg QD Take 1 tablet (81 mg total) by mouth daily for 90 days. [facility] divalproex (DEPAKOTE) 500 MG EC tablet 04-03 00:00: 00 07-02 23:59 :00 No 500mg Q.5D Take 1 tablet (500 mg total) by mouth 2 (two) times daily for 90 days. [facility] gabapentin (NEURONTIN) 300 MG capsule 04-03 00:00: 00 07-02 23:59 :00 No 300mg Q.[id number] 3D Take 1 capsule (300 mg total) by mouth 3 (three) times daily for 90 days. [facility] aspirin 81 MG EC tablet 04-03 00:00: 00 07-02 23:59 :00 No 81mg QD Take 1 tablet (81 mg total) by mouth daily for 90 days. [facility] divalproex (DEPAKOTE) 500 MG EC tablet 04-03 00:00: 00 07-02 23:59 :00 No 500mg Q.5D Take 1 tablet (500 mg total) by mouth 2 (two) times daily for 90 days. [facility] gabapentin (NEURONTIN) 300 MG capsule 04-03 00:00: 00 07-02 23:59 :00 No 300mg Q.[id number] 3D Take 1 capsule (300 mg total) by mouth 3 (three) times daily for 90 days. [facility] aspirin 81 MG EC tablet 04-03 00:00: 00 07-02 23:59 :00 No 81mg QD Take 1 tablet (81 mg total) by mouth daily for 90 days. [facility] divalproex (DEPAKOTE) 500 MG EC tablet 04-03 00:00: 00 07-02 23:59 :00 No 500mg Q.5D Take 1 tablet (500 mg total) by mouth 2 (two) times daily for 90 days. [facility] gabapentin (NEURONTIN) 300 MG capsule 04-03 00:00: 00 07-02 23:59 :00 No 300mg Q.[id number] 3D Take 1 capsule (300 mg total) by mouth 3 (three) times daily for 90 days. [facility] aspirin 81 MG EC tablet 04-03 00:00: 00 07-02 23:59 :00 No 81mg QD Take 1 tablet (81 mg total) by mouth daily for 90 days. [facility] divalproex (DEPAKOTE) 500 MG EC tablet 04-03 00:00: 00 07-02 23:59 :00 No 500mg Q.5D Take 1 tablet (500 mg total) by mouth 2 (two) times daily for 90 days. [facility] gabapentin (NEURONTIN) 300 MG capsule 04-03 00:00: 00 07-02 23:59 :00 No 300mg Q.[id number] 3D Take 1 capsule (300 mg total) by mouth 3 (three) times daily for 90 days. [facility] aspirin 81 MG EC tablet 04-03 00:00: 00 07-02 23:59 :00 No 81mg QD Take 1 tablet (81 mg total) by mouth daily for 90 days. [facility] divalproex (DEPAKOTE) 500 MG EC tablet 04-03 00:00: 00 07-02 23:59 :00 No 500mg Q.5D Take 1 tablet (500 mg total) by mouth 2 (two) times daily for 90 days. [facility] gabapentin (NEURONTIN) 300 MG capsule 04-03 00:00: 00 07-02 23:59 :00 No 300mg Q.[id number] 3D Take 1 capsule (300 mg total) by mouth 3 (three) times daily for 90 days. [facility] aspirin 81 MG EC tablet 04-03 00:00: 00 07-02 23:59 :00 No 81mg QD Take 1 tablet (81 mg total) by mouth daily for 90 days. [facility] divalproex (DEPAKOTE) 500 MG EC tablet 04-03 00:00: 00 07-02 23:59 :00 No 500mg Q.5D Take 1 tablet (500 mg total) by mouth 2 (two) times daily for 90 days. [facility] gabapentin (NEURONTIN) 300 MG capsule 04-03 00:00: 00 07-02 23:59 :00 No 300mg Q.[id number] 3D Take 1 capsule (300 mg total) by mouth 3 (three) times daily for 90 days. [facility] aspirin 81 MG EC tablet 04-03 00:00: 00 07-02 23:59 :00 No 81mg QD Take 1 tablet (81 mg total) by mouth daily for 90 days. [facility] divalproex (DEPAKOTE) 500 MG EC tablet 04-03 00:00: 00 07-02 23:59 :00 No 500mg Q.5D Take 1 tablet (500 mg total) by mouth 2 (two) times daily for 90 days. [facility] gabapentin (NEURONTIN) 300 MG capsule 04-03 00:00: 00 07-02 23:59 :00 No 300mg Q.[id number] 3D Take 1 capsule (300 mg total) by mouth 3 (three) times daily for 90 days. [facility] aspirin 81 MG EC tablet 15 00:00: 00 07-02 23:59 :00 No 81mg QD Take 1 tablet (81 mg total) by mouth daily for 90 days. [facility] divalproex (DEPAKOTE) 500 MG EC tablet 15 00:00: 00 07-02 23:59 :00 No 500mg Q.5D Take 1 tablet (500 mg total) by mouth 2 (two) times daily for 90 days. [facility] gabapentin (NEURONTIN) 300 MG capsule 15 00:00: 00 07-02 23:59 :00 No 300mg Q.[id number] 3D Take 1 capsule (300 mg total) by mouth 3 (three) times daily for 90 days. [facility] aspirin 81 MG EC tablet 04-03 00:00: 00 07-02 23:59 :00 No 81mg QD Take 1 tablet (81 mg total) by mouth daily for 90 days. [facility] divalproex (DEPAKOTE) 500 MG EC tablet 04-03 00:00: 00 07-02 23:59 :00 No 500mg Q.5D Take 1 tablet (500 mg total) by mouth 2 (two) times daily for 90 days. [facility] gabapentin (NEURONTIN) 300 MG capsule 04-03 00:00: 00 07-02 23:59 :00 No 300mg Q.[id number] 3D Take 1 capsule (300 mg total) by mouth 3 (three) times daily for 90 days. [facility] aspirin 81 MG EC tablet 15 00:00: 00 07-02 23:59 :00 No 81mg QD Take 1 tablet (81 mg total) by mouth daily for 90 days. [facility] aspirin 81 MG EC tablet 15 00:00: 00 07-02 23:59 :00 No 81mg QD Take 1 tablet (81 mg total) by mouth daily for 90 days. [facility] divalproex (DEPAKOTE) 500 MG EC tablet 15 00:00: 00 07-02 23:59 :00 No 500mg Q.5D Take 1 tablet (500 mg total) by mouth 2 (two) times daily for 90 days. [facility] gabapentin (NEURONTIN) 300 MG capsule 04-03 00:00: 00 07-02 23:59 :00 No 300mg Q.[id number] 3D Take 1 capsule (300 mg total) by mouth 3 (three) times daily for 90 days. [facility] divalproex (DEPAKOTE) 500 MG EC tablet 04-03 00:00: 00 07-02 23:59 :00 No 500mg Q.5D Take 1 tablet (500 mg total) by mouth 2 (two) times daily for 90 days. [facility] gabapentin (NEURONTIN) 300 MG capsule 04-03 00:00: 00 07-02 23:59 :00 No 300mg Q.[id number] 3D Take 1 capsule (300 mg total) by mouth 3 (three) times daily for 90 days. [facility] aspirin 81 MG EC tablet 04-03 00:00: 00 07-02 23:59 :00 No 81mg QD Take 1 tablet (81 mg total) by mouth daily for 90 days. [facility] divalproex (DEPAKOTE) 500 MG EC tablet 04-03 00:00: 00 07-02 23:59 :00 No 500mg Q.5D Take 1 tablet (500 mg total) by mouth 2 (two) times daily for 90 days. [facility] gabapentin (NEURONTIN) 300 MG capsule 04-03 00:00: 00 07-02 23:59 :00 No 300mg Q.[id number] 3D Take 1 capsule (300 mg total) by mouth 3 (three) times daily for 90 days. [facility] aspirin 81 MG EC tablet 04-03 00:00: 00 07-02 23:59 :00 No 81mg QD Take 1 tablet (81 mg total) by mouth daily for 90 days. [facility] divalproex (DEPAKOTE) 500 MG EC tablet 04-03 00:00: 00 07-02 23:59 :00 No 500mg Q.5D Take 1 tablet (500 mg total) by mouth 2 (two) times daily for 90 days. [facility] gabapentin (NEURONTIN) 300 MG capsule 04-03 00:00: 00 07-02 23:59 :00 No 300mg Q.[id number] 3D Take 1 capsule (300 mg total) by mouth 3 (three) times daily for 90 days. [facility] aspirin 81 MG EC tablet 04-03 00:00: 00 07-02 23:59 :00 No 81mg QD Take 1 tablet (81 mg total) by mouth daily for 90 days. [facility] divalproex (DEPAKOTE) 500 MG EC tablet 04-03 00:00: 00 07-02 23:59 :00 No 500mg Q.5D Take 1 tablet (500 mg total) by mouth 2 (two) times daily for 90 days. [facility] gabapentin (NEURONTIN) 300 MG capsule 04-03 00:00: 00 07-02 23:59 :00 No 300mg Q.[id number] 3D Take 1 capsule (300 mg total) by mouth 3 (three) times daily for 90 days. [facility] aspirin 81 MG EC tablet 04-03 00:00: 00 07-02 23:59 :00 No 81mg QD Take 1 tablet (81 mg total) by mouth daily for 90 days. [facility] divalproex (DEPAKOTE) 500 MG EC tablet 04-03 00:00: 00 07-02 23:59 :00 No 500mg Q.5D Take 1 tablet (500 mg total) by mouth 2 (two) times daily for 90 days. [facility] gabapentin (NEURONTIN) 300 MG capsule 04-03 00:00: 00 07-02 23:59 :00 No 300mg Q.[id number] 3D Take 1 capsule (300 mg total) by mouth 3 (three) times daily for 90 days. [facility] aspirin 81 MG EC tablet 04-03 00:00: 00 07-02 23:59 :00 No 81mg QD Take 1 tablet (81 mg total) by mouth daily for 90 days. [facility] divalproex (DEPAKOTE) 500 MG EC tablet 04-03 00:00: 00 07-02 23:59 :00 No 500mg Q.5D Take 1 tablet (500 mg total) by mouth 2 (two) times daily for 90 days. [facility] gabapentin (NEURONTIN) 300 MG capsule 04-03 00:00: 00 07-02 23:59 :00 No 300mg Q.[id number] 3D Take 1 capsule (300 mg total) by mouth 3 (three) times daily for 90 days. [facility] aspirin 81 MG EC tablet 04-03 00:00: 00 07-02 23:59 :00 No 81mg QD Take 1 tablet (81 mg total) by mouth daily for 90 days. [facility] divalproex (DEPAKOTE) 500 MG EC tablet 04-03 00:00: 00 07-02 23:59 :00 No 500mg Q.5D Take 1 tablet (500 mg total) by mouth 2 (two) times daily for 90 days. [facility] gabapentin (NEURONTIN) 300 MG capsule 04-03 00:00: 00 07-02 23:59 :00 No 300mg Q.[id number] 3D Take 1 capsule (300 mg total) by mouth 3 (three) times daily for 90 days. [facility] aspirin 81 MG EC tablet 04-03 00:00: 00 07-02 23:59 :00 No 81mg QD Take 1 tablet (81 mg total) by mouth daily for 90 days. [facility] divalproex (DEPAKOTE) 500 MG EC tablet 04-03 00:00: 00 07-02 23:59 :00 No 500mg Q.5D Take 1 tablet (500 mg total) by mouth 2 (two) times daily for 90 days. [facility] gabapentin (NEURONTIN) 300 MG capsule 04-03 00:00: 00 07-02 23:59 :00 No 300mg Q.[id number] 3D Take 1 capsule (300 mg total) by mouth 3 (three) times daily for 90 days. [facility] aspirin 81 MG EC tablet 04-03 00:00: 00 07-02 23:59 :00 No 81mg QD Take 1 tablet (81 mg total) by mouth daily for 90 days. [facility] divalproex (DEPAKOTE) 500 MG EC tablet 04-03 00:00: 00 07-02 23:59 :00 No 500mg Q.5D Take 1 tablet (500 mg total) by mouth 2 (two) times daily for 90 days. [facility] gabapentin (NEURONTIN) 300 MG capsule 04-03 00:00: 00 07-02 23:59 :00 No 300mg Q.[id number] 3D Take 1 capsule (300 mg total) by mouth 3 (three) times daily for 90 days. [facility] aspirin 81 MG EC tablet 04-03 00:00: 00 07-02 23:59 :00 No 81mg QD Take 1 tablet (81 mg total) by mouth daily for 90 days. [facility] divalproex (DEPAKOTE) 500 MG EC tablet 04-03 00:00: 00 07-02 23:59 :00 No 500mg Q.5D Take 1 tablet (500 mg total) by mouth 2 (two) times daily for 90 days. [facility] gabapentin (NEURONTIN) 300 MG capsule 04-03 00:00: 00 07-02 23:59 :00 No 300mg Q.[id number] 3D Take 1 capsule (300 mg total) by mouth 3 (three) times daily for 90 days. [facility] aspirin 81 MG EC tablet -15 00:00: 00 07-02 23:59 :00 No 81mg QD Take 1 tablet (81 mg total) by mouth daily for 90 days. [facility] divalproex (DEPAKOTE) 500 MG EC tablet -15 00:00: 00 07-02 23:59 :00 No 500mg Q.5D Take 1 tablet (500 mg total) by mouth 2 (two) times daily for 90 days. [facility] gabapentin (NEURONTIN) 300 MG capsule -15 00:00: 00 07-02 23:59 :00 No 300mg Q.[id number] 3D Take 1 capsule (300 mg total) by mouth 3 (three) times daily for 90 days. [facility] aspirin 81 MG EC tablet 15 00:00: 00 07-02 23:59 :00 No 81mg QD Take 1 tablet (81 mg total) by mouth daily for 90 days. [facility] divalproex (DEPAKOTE) 500 MG EC tablet 15 00:00: 00 07-02 23:59 :00 No 500mg Q.5D Take 1 tablet (500 mg total) by mouth 2 (two) times daily for 90 days. [facility] gabapentin (NEURONTIN) 300 MG capsule 15 00:00: 00 07-02 23:59 :00 No 300mg Q.[id number] 3D Take 1 capsule (300 mg total) by mouth 3 (three) times daily for 90 days. [facility] aspirin 81 MG EC tablet -15 00:00: 00 07-02 23:59 :00 No 81mg QD Take 1 tablet (81 mg total) by mouth daily for 90 days. [facility] divalproex (DEPAKOTE) 500 MG EC tablet 9-15 00:00: 00 07-02 23:59 :00 No 500mg Q.5D Take 1 tablet (500 mg total) by mouth 2 (two) times daily for 90 days. [facility] gabapentin (NEURONTIN) 300 MG capsule 04-03 00:00: 00 07-02 23:59 :00 No 300mg Q.[id number] 3D Take 1 capsule (300 mg total) by mouth 3 (three) times daily for 90 days. [facility] aspirin 81 MG EC tablet 04-03 00:00: 00 07-02 23:59 :00 No 81mg QD Take 1 tablet (81 mg total) by mouth daily for 90 days. [facility] divalproex (DEPAKOTE) 500 MG EC tablet 04-03 00:00: 00 07-02 23:59 :00 No 500mg Q.5D Take 1 tablet (500 mg total) by mouth 2 (two) times daily for 90 days. [facility] gabapentin (NEURONTIN) 300 MG capsule 04-03 00:00: 00 07-02 23:59 :00 No 300mg Q.[id number] 3D Take 1 capsule (300 mg total) by mouth 3 (three) times daily for 90 days. [facility] aspirin 81 MG EC tablet 04-03 00:00: 00 07-02 23:59 :00 No 81mg QD Take 1 tablet (81 mg total) by mouth daily for 90 days. [facility] divalproex (DEPAKOTE) 500 MG EC tablet 04-03 00:00: 00 07-02 23:59 :00 No 500mg Q.5D Take 1 tablet (500 mg total) by mouth 2 (two) times daily for 90 days. [facility] gabapentin (NEURONTIN) 300 MG capsule 04-03 00:00: 00 07-02 23:59 :00 No 300mg Q.[id number] 3D Take 1 capsule (300 mg total) by mouth 3 (three) times daily for 90 days. [facility] aspirin 81 MG EC tablet 04-03 00:00: 00 07-02 23:59 :00 No 81mg QD Take 1 tablet (81 mg total) by mouth daily for 90 days. [facility] divalproex (DEPAKOTE) 500 MG EC tablet 04-03 00:00: 00 07-02 23:59 :00 No 500mg Q.5D Take 1 tablet (500 mg total) by mouth 2 (two) times daily for 90 days. [facility] gabapentin (NEURONTIN) 300 MG capsule 04-03 00:00: 00 07-02 23:59 :00 No 300mg Q.[id number] 3D Take 1 capsule (300 mg total) by mouth 3 (three) times daily for 90 days. [facility] aspirin 81 MG EC tablet 04-03 00:00: 00 07-02 23:59 :00 No 81mg QD Take 1 tablet (81 mg total) by mouth daily for 90 days. [facility] divalproex (DEPAKOTE) 500 MG EC tablet 04-03 00:00: 00 07-02 23:59 :00 No 500mg Q.5D Take 1 tablet (500 mg total) by mouth 2 (two) times daily for 90 days. [facility] gabapentin (NEURONTIN) 300 MG capsule 04-03 00:00: 00 07-02 23:59 :00 No 300mg Q.[id number] 3D Take 1 capsule (300 mg total) by mouth 3 (three) times daily for 90 days. [facility] aspirin 81 MG EC tablet 04-03 00:00: 00 07-02 23:59 :00 No 81mg QD Take 1 tablet (81 mg total) by mouth daily for 90 days. [facility] divalproex (DEPAKOTE) 500 MG EC tablet 04-03 00:00: 00 07-02 23:59 :00 No 500mg Q.5D Take 1 tablet (500 mg total) by mouth 2 (two) times daily for 90 days. [facility] gabapentin (NEURONTIN) 300 MG capsule 04-03 00:00: 00 07-02 23:59 :00 No 300mg Q.[id number] 3D Take 1 capsule (300 mg total) by mouth 3 (three) times daily for 90 days. [facility] aspirin 81 MG EC tablet 04-03 00:00: 00 07-02 23:59 :00 No 81mg QD Take 1 tablet (81 mg total) by mouth daily for 90 days. [facility] divalproex (DEPAKOTE) 500 MG EC tablet 04-03 00:00: 00 07-02 23:59 :00 No 500mg Q.5D Take 1 tablet (500 mg total) by mouth 2 (two) times daily for 90 days. [facility] gabapentin (NEURONTIN) 300 MG capsule 04-03 00:00: 00 07-02 23:59 :00 No 300mg Q.[id number] 3D Take 1 capsule (300 mg total) by mouth 3 (three) times daily for 90 days. [facility] DULoxetine (CYMBALTA) 30 MG capsule 04-03 00:00: 00 06-16 00:00 :00 No 30mg QD Take 1 capsule (30 mg total) by mouth daily. [facility] DULoxetine (CYMBALTA) 30 MG capsule 04-03 00:00: 00 06-16 00:00 :00 No 30mg QD Take 1 capsule (30 mg total) by mouth daily. [facility] DULoxetine (CYMBALTA) 30 MG capsule 04-03 00:00: 00 06-16 00:00 :00 No 30mg QD Take 1 capsule (30 mg total) by mouth daily. [facility] DULoxetine (CYMBALTA) 30 MG capsule 04-03 00:00: 00 06-16 00:00 :00 No 30mg QD Take 1 capsule (30 mg total) by mouth daily. [facility] DULoxetine (CYMBALTA) 30 MG capsule 04-03 00:00: 00 06-16 00:00 :00 No 30mg QD Take 1 capsule (30 mg total) by mouth daily. [facility] DULoxetine (CYMBALTA) 30 MG capsule 2022-0 9-15 00:00: 00 06-16 00:00 :00 No 30mg QD Take 1 capsule (30 mg total) by mouth daily. [facility] DULoxetine (CYMBALTA) 30 MG capsule 2022-0 9-15 00:00: 00 06-16 00:00 :00 No 30mg QD Take 1 capsule (30 mg total) by mouth daily. [facility] DULoxetine (CYMBALTA) 30 MG capsule 2022-0 9-15 00:00: 00 06-16 00:00 :00 No 30mg QD Take 1 capsule (30 mg total) by mouth daily. [facility] DULoxetine (CYMBALTA) 30 MG capsule 2022-0 9-15 00:00: 00 06-16 00:00 :00 No 30mg QD Take 1 capsule (30 mg total) by mouth daily. [facility] DULoxetine (CYMBALTA) 30 MG capsule 2022-0 9-15 00:00: 00 06-16 00:00 :00 No 30mg QD Take 1 capsule (30 mg total) by mouth daily. [facility] DULoxetine (CYMBALTA) 30 MG capsule 2022-0 9-15 00:00: 00 06-16 00:00 :00 No 30mg QD Take 1 capsule (30 mg total) by mouth daily. [facility] DULoxetine (CYMBALTA) 30 MG capsule 2022-0 9-15 00:00: 00 06-16 00:00 :00 No 30mg QD Take 1 capsule (30 mg total) by mouth daily. [facility] DULoxetine (CYMBALTA) 30 MG capsule 2022-0 9-15 00:00: 00 06-16 00:00 :00 No 30mg QD Take 1 capsule (30 mg total) by mouth daily. [facility] DULoxetine (CYMBALTA) 30 MG capsule 2022-0 9-15 00:00: 00 06-16 00:00 :00 No 30mg QD Take 1 capsule (30 mg total) by mouth daily. [facility] DULoxetine (CYMBALTA) 30 MG capsule 2022-0 9-15 00:00: 00 06-16 00:00 :00 No 30mg QD Take 1 capsule (30 mg total) by mouth daily. [facility] DULoxetine (CYMBALTA) 30 MG capsule 2022-0 9-15 00:00: 00 06-16 00:00 :00 No 30mg QD Take 1 capsule (30 mg total) by mouth daily. [facility] DULoxetine (CYMBALTA) 30 MG capsule 2022-0 9-15 00:00: 00 06-16 00:00 :00 No 30mg QD Take 1 capsule (30 mg total) by mouth daily. [facility] DULoxetine (CYMBALTA) 30 MG capsule 2022-0 9-15 00:00: 00 06-16 00:00 :00 No 30mg QD Take 1 capsule (30 mg total) by mouth daily. [facility] DULoxetine (CYMBALTA) 30 MG capsule 2022-0 9-15 00:00: 00 06-16 00:00 :00 No 30mg QD Take 1 capsule (30 mg total) by mouth daily. [facility] DULoxetine (CYMBALTA) 30 MG capsule 2022-0 9-15 00:00: 00 06-16 00:00 :00 No 30mg QD Take 1 capsule (30 mg total) by mouth daily. [facility] DULoxetine (CYMBALTA) 30 MG capsule 2022-0 9-15 00:00: 00 06-16 00:00 :00 No 30mg QD Take 1 capsule (30 mg total) by mouth daily. [facility] DULoxetine (CYMBALTA) 30 MG capsule 2022-0 9-15 00:00: 00 06-16 00:00 :00 No 30mg QD Take 1 capsule (30 mg total) by mouth daily. [facility] DULoxetine (CYMBALTA) 30 MG capsule 2022-0 9-15 00:00: 00 06-16 00:00 :00 No 30mg QD Take 1 capsule (30 mg total) by mouth daily. [facility] DULoxetine (CYMBALTA) 30 MG capsule 0 -15 00:00: 00 06-16 00:00 :00 No 30mg QD Take 1 capsule (30 mg total) by mouth daily. [facility] DULoxetine (CYMBALTA) 30 MG capsule 0 -15 00:00: 00 06-16 00:00 :00 No 30mg QD Take 1 capsule (30 mg total) by mouth daily. [facility] DULoxetine (CYMBALTA) 30 MG capsule - 00:00: 00 06-16 00:00 :00 No 30mg QD Take 1 capsule (30 mg total) by mouth daily. [facility] DULoxetine (CYMBALTA) 30 MG capsule 0 - 00:00: 00 06-16 00:00 :00 No 30mg QD Take 1 capsule (30 mg total) by mouth daily. [facility] DULoxetine (CYMBALTA) 30 MG capsule 0 -15 00:00: 00 06-16 00:00 :00 No 30mg QD Take 1 capsule (30 mg total) by mouth daily. [facility] DULoxetine (CYMBALTA) 30 MG capsule 2022-0 -15 00:00: 00 06-16 00:00 :00 No 30mg QD Take 1 capsule (30 mg total) by mouth daily. [facility] lisinopriL (PRINIVIL,Z ESTRIL) 5 MG tablet 2022-0 -15 00:00: 00 05-28 00:00 :00 No 5mg QD Take 1 tablet (5 mg total) by mouth daily. [facility] lisinopriL (PRINIVIL,Z ESTRIL) 5 MG tablet 2022-0 -15 00:00: 00 05-28 00:00 :00 No 5mg QD Take 1 tablet (5 mg total) by mouth daily. [facility] lisinopriL (PRINIVIL,Z ESTRIL) 5 MG tablet 2022-0 9-15 00:00: 00 05-28 00:00 :00 No 5mg QD Take 1 tablet (5 mg total) by mouth daily. [facility] lisinopriL (PRINIVIL,Z ESTRIL) 5 MG tablet 2022-0 9-15 00:00: 00 05-28 00:00 :00 No 5mg QD Take 1 tablet (5 mg total) by mouth daily. [facility] lisinopriL (PRINIVIL,Z ESTRIL) 5 MG tablet 2022-0 9-15 00:00: 00 05-28 00:00 :00 No 5mg QD Take 1 tablet (5 mg total) by mouth daily. [facility] lisinopriL (PRINIVIL,Z ESTRIL) 5 MG tablet 2022-0 9-15 00:00: 00 05-28 00:00 :00 No 5mg QD Take 1 tablet (5 mg total) by mouth daily. [facility] lisinopriL (PRINIVIL,Z ESTRIL) 5 MG tablet 2022-0 9-15 00:00: 00 05-28 00:00 :00 No 5mg QD Take 1 tablet (5 mg total) by mouth daily. [facility] lisinopriL (PRINIVIL,Z ESTRIL) 5 MG tablet 2022-0 9-15 00:00: 00 05-28 00:00 :00 No 5mg QD Take 1 tablet (5 mg total) by mouth daily. [facility] lisinopriL (PRINIVIL,Z ESTRIL) 5 MG tablet 2022-0 9-15 00:00: 00 05-28 00:00 :00 No 5mg QD Take 1 tablet (5 mg total) by mouth daily. [facility] lisinopriL (PRINIVIL,Z ESTRIL) 5 MG tablet 2022-0 9-15 00:00: 00 05-28 00:00 :00 No 5mg QD Take 1 tablet (5 mg total) by mouth daily. [facility] lisinopriL (PRINIVIL,Z ESTRIL) 5 MG tablet 04-03 00:00: 00 05-28 00:00 :00 No 5mg QD Take 1 tablet (5 mg total) by mouth daily. [facility] lisinopriL (PRINIVIL,Z ESTRIL) 5 MG tablet 04-03 00:00: 00 05-28 00:00 :00 No 5mg QD Take 1 tablet (5 mg total) by mouth daily. [facility] lisinopriL (PRINIVIL,Z ESTRIL) 5 MG tablet 04-03 00:00: 00 05-28 00:00 :00 No 5mg QD Take 1 tablet (5 mg total) by mouth daily. [facility] lisinopriL (PRINIVIL,Z ESTRIL) 5 MG tablet 04-03 00:00: 00 05-28 00:00 :00 No 5mg QD Take 1 tablet (5 mg total) by mouth daily. [facility] lisinopriL (PRINIVIL,Z ESTRIL) 5 MG tablet 04-03 00:00: 00 05-28 00:00 :00 No 5mg QD Take 1 tablet (5 mg total) by mouth daily. [facility] lisinopriL (PRINIVIL,Z ESTRIL) 5 MG tablet 04-03 00:00: 00 05-28 00:00 :00 No 5mg QD Take 1 tablet (5 mg total) by mouth daily. [facility] lisinopriL (PRINIVIL,Z ESTRIL) 5 MG tablet 04-03 00:00: 00 05-28 00:00 :00 No 5mg QD Take 1 tablet (5 mg total) by mouth daily. [facility] lisinopriL (PRINIVIL,Z ESTRIL) 5 MG tablet 04-03 00:00: 00 05-28 00:00 :00 No 5mg QD Take 1 tablet (5 mg total) by mouth daily. [facility] lisinopriL (PRINIVIL,Z ESTRIL) 5 MG tablet 04-03 00:00: 05-28 00:00 :00 No 5mg QD Take 1 tablet (5 mg total) by mouth daily. [facility] lisinopriL (PRINIVIL,Z ESTRIL) 5 MG tablet 04-03 00:00: 00 05-28 00:00 :00 No 5mg QD Take 1 tablet (5 mg total) by mouth daily. [facility] lisinopriL (PRINIVIL,Z ESTRIL) 5 MG tablet 04-03 00:00: 00 05-28 00:00 :00 No 5mg QD Take 1 tablet (5 mg total) by mouth daily. [facility] lisinopriL (PRINIVIL,Z ESTRIL) 5 MG tablet 04-03 00:00: 00 05-28 00:00 :00 No 5mg QD Take 1 tablet (5 mg total) by mouth daily. [facility] lisinopriL (PRINIVIL,Z ESTRIL) 5 MG tablet 04-03 00:00: 00 05-28 00:00 :00 No 5mg QD Take 1 tablet (5 mg total) by mouth daily. [facility] lisinopriL (PRINIVIL,Z ESTRIL) 5 MG tablet 04-03 00:00: 00 05-28 00:00 :00 No 5mg QD Take 1 tablet (5 mg total) by mouth daily. [facility] lisinopriL (PRINIVIL,Z ESTRIL) 5 MG tablet 04-03 00:00: 00 05-28 00:00 :00 No 5mg QD Take 1 tablet (5 mg total) by mouth daily. [facility] lisinopriL (PRINIVIL,Z ESTRIL) 5 MG tablet - 00:00: 00 05-28 00:00 :00 No 5mg QD Take 1 tablet (5 mg total) by mouth daily. [facility] lisinopriL (PRINIVIL,Z ESTRIL) 5 MG tablet - 00:00: 00 05-28 00:00 :00 No 5mg QD Take 1 tablet (5 mg total) by mouth daily. [facility] lisinopriL (PRINIVIL,Z ESTRIL) 5 MG tablet 04-03 00:00: 00 05-28 00:00 :00 No 5mg QD Take 1 tablet (5 mg total) by mouth daily. [facility] lisinopriL (PRINIVIL,Z ESTRIL) 5 MG tablet 04-03 00:00: 00 05-28 00:00 :00 No 5mg QD Take 1 tablet (5 mg total) by mouth daily. [facility] lisinopriL (PRINIVIL,Z ESTRIL) 5 MG tablet 04-03 00:00: 00 05-28 00:00 :00 No 5mg QD Take 1 tablet (5 mg total) by mouth daily. [facility] lisinopriL (PRINIVIL,Z ESTRIL) 5 MG tablet 04-03 00:00: 00 05-28 00:00 :00 No 5mg QD Take 1 tablet (5 mg total) by mouth daily. [facility] lisinopriL (PRINIVIL,Z ESTRIL) 5 MG tablet 04-03 00:00: 00 05-28 00:00 :00 No 5mg QD Take 1 tablet (5 mg total) by mouth daily. [facility] lisinopriL (PRINIVIL,Z ESTRIL) 5 MG tablet 04-03 00:00: 00 05-28 00:00 :00 No 5mg QD Take 1 tablet (5 mg total) by mouth daily. [facility] clonazePAM (KlonoPIN) 0.5 MG tablet 04-03 00:00: 00 05-03 23:59 :00 No .25mg Take 0.5 tablets (0.25 mg total) by mouth 2 (two) times daily as needed for Anxiety for up to 30 days. Max Daily Amount: 0.5 mg [facility] clonazePAM (KlonoPIN) 0.5 MG tablet 04-03 00:00: 00 05-03 23:59 :00 No .25mg Take 0.5 tablets (0.25 mg total) by mouth 2 (two) times daily as needed for Anxiety for up to 30 days. Max Daily Amount: 0.5 mg [facility] clonazePAM (KlonoPIN) 0.5 MG tablet 0 04-03 00:00: 00 05-03 23:59 :00 No .25mg Take 0.5 tablets (0.25 mg total) by mouth 2 (two) times daily as needed for Anxiety for up to 30 days. Max Daily Amount: 0.5 mg [facility] clonazePAM (KlonoPIN) 0.5 MG tablet 04-03 00:00: 00 05-03 23:59 :00 No .25mg Take 0.5 tablets (0.25 mg total) by mouth 2 (two) times daily as needed for Anxiety for up to 30 days. Max Daily Amount: 0.5 mg [facility] clonazePAM (KlonoPIN) 0.5 MG tablet 04-03 00:00: 00 05-03 23:59 :00 No .25mg Take 0.5 tablets (0.25 mg total) by mouth 2 (two) times daily as needed for Anxiety for up to 30 days. Max Daily Amount: 0.5 mg [facility] clonazePAM (KlonoPIN) 0.5 MG tablet 04-03 00:00: 00 05-03 23:59 :00 No .25mg Take 0.5 tablets (0.25 mg total) by mouth 2 (two) times daily as needed for Anxiety for up to 30 days. Max Daily Amount: 0.5 mg [facility] clonazePAM (KlonoPIN) 0.5 MG tablet 2022-0 15 00:00: 00 05-03 23:59 :00 No .25mg Take 0.5 tablets (0.25 mg total) by mouth 2 (two) times daily as needed for Anxiety for up to 30 days. Max Daily Amount: 0.5 mg [facility] clonazePAM (KlonoPIN) 0.5 MG tablet 2022-0 15 00:00: 00 05-03 23:59 :00 No .25mg Take 0.5 tablets (0.25 mg total) by mouth 2 (two) times daily as needed for Anxiety for up to 30 days. Max Daily Amount: 0.5 mg [facility] clonazePAM (KlonoPIN) 0.5 MG tablet 15 00:00: 00 05-03 23:59 :00 No .25mg Take 0.5 tablets (0.25 mg total) by mouth 2 (two) times daily as needed for Anxiety for up to 30 days. Max Daily Amount: 0.5 mg [facility] clonazePAM (KlonoPIN) 0.5 MG tablet 0 15 00:00: 00 05-03 23:59 :00 No .25mg Take 0.5 tablets (0.25 mg total) by mouth 2 (two) times daily as needed for Anxiety for up to 30 days. Max Daily Amount: 0.5 mg [facility] clonazePAM (KlonoPIN) 0.5 MG tablet 0 04-03 00:00: 00 05-03 23:59 :00 No .25mg Take 0.5 tablets (0.25 mg total) by mouth 2 (two) times daily as needed for Anxiety for up to 30 days. Max Daily Amount: 0.5 mg [facility] clonazePAM (KlonoPIN) 0.5 MG tablet 0 04-03 00:00: 00 05-03 23:59 :00 No .25mg Take 0.5 tablets (0.25 mg total) by mouth 2 (two) times daily as needed for Anxiety for up to 30 days. Max Daily Amount: 0.5 mg [facility] clonazePAM (KlonoPIN) 0.5 MG tablet 2022-0 15 00:00: 00 05-03 23:59 :00 No .25mg Take 0.5 tablets (0.25 mg total) by mouth 2 (two) times daily as needed for Anxiety for up to 30 days. Max Daily Amount: 0.5 mg [facility] clonazePAM (KlonoPIN) 0.5 MG tablet 2022-0 15 00:00: 00 05-03 23:59 :00 No .25mg Take 0.5 tablets (0.25 mg total) by mouth 2 (two) times daily as needed for Anxiety for up to 30 days. Max Daily Amount: 0.5 mg [facility] clonazePAM (KlonoPIN) 0.5 MG tablet 04-03 00:00: 00 05-03 23:59 :00 No .25mg Take 0.5 tablets (0.25 mg total) by mouth 2 (two) times daily as needed for Anxiety for up to 30 days. Max Daily Amount: 0.5 mg [facility] clonazePAM (KlonoPIN) 0.5 MG tablet 04-03 00:00: 00 05-03 23:59 :00 No .25mg Take 0.5 tablets (0.25 mg total) by mouth 2 (two) times daily as needed for Anxiety for up to 30 days. Max Daily Amount: 0.5 mg [facility] clonazePAM (KlonoPIN) 0.5 MG tablet 04-03 00:00: 00 05-03 23:59 :00 No .25mg Take 0.5 tablets (0.25 mg total) by mouth 2 (two) times daily as needed for Anxiety for up to 30 days. Max Daily Amount: 0.5 mg [facility] clonazePAM (KlonoPIN) 0.5 MG tablet 04-03 00:00: 00 05-03 23:59 :00 No .25mg Take 0.5 tablets (0.25 mg total) by mouth 2 (two) times daily as needed for Anxiety for up to 30 days. Max Daily Amount: 0.5 mg [facility] clonazePAM (KlonoPIN) 0.5 MG tablet 04-03 00:00: 00 05-03 23:59 :00 No .25mg Take 0.5 tablets (0.25 mg total) by mouth 2 (two) times daily as needed for Anxiety for up to 30 days. Max Daily Amount: 0.5 mg [facility] clonazePAM (KlonoPIN) 0.5 MG tablet 04-03 00:00: 00 05-03 23:59 :00 No .25mg Take 0.5 tablets (0.25 mg total) by mouth 2 (two) times daily as needed for Anxiety for up to 30 days. Max Daily Amount: 0.5 mg [facility] clonazePAM (KlonoPIN) 0.5 MG tablet 04-03 00:00: 00 05-03 23:59 :00 No .25mg Take 0.5 tablets (0.25 mg total) by mouth 2 (two) times daily as needed for Anxiety for up to 30 days. Max Daily Amount: 0.5 mg [facility] clonazePAM (KlonoPIN) 0.5 MG tablet 04-03 00:00: 00 05-03 23:59 :00 No .25mg Take 0.5 tablets (0.25 mg total) by mouth 2 (two) times daily as needed for Anxiety for up to 30 days. Max Daily Amount: 0.5 mg [facility] clonazePAM (KlonoPIN) 0.5 MG tablet 04-03 00:00: 00 05-03 23:59 :00 No .25mg Take 0.5 tablets (0.25 mg total) by mouth 2 (two) times daily as needed for Anxiety for up to 30 days. Max Daily Amount: 0.5 mg [facility] clonazePAM (KlonoPIN) 0.5 MG tablet 04-03 00:00: 00 05-03 23:59 :00 No .25mg Take 0.5 tablets (0.25 mg total) by mouth 2 (two) times daily as needed for Anxiety for up to 30 days. Max Daily Amount: 0.5 mg [facility] clonazePAM (KlonoPIN) 0.5 MG tablet 04-03 00:00: 00 05-03 23:59 :00 No .25mg Take 0.5 tablets (0.25 mg total) by mouth 2 (two) times daily as needed for Anxiety for up to 30 days. Max Daily Amount: 0.5 mg [facility] clonazePAM (KlonoPIN) 0.5 MG tablet 04-03 00:00: 00 05-03 23:59 :00 No .25mg Take 0.5 tablets (0.25 mg total) by mouth 2 (two) times daily as needed for Anxiety for up to 30 days. Max Daily Amount: 0.5 mg [facility] clonazePAM (KlonoPIN) 0.5 MG tablet 04-03 00:00: 00 05-03 23:59 :00 No .25mg Take 0.5 tablets (0.25 mg total) by mouth 2 (two) times daily as needed for Anxiety for up to 30 days. Max Daily Amount: 0.5 mg [facility] clonazePAM (KlonoPIN) 0.5 MG tablet 04-03 00:00: 00 05-03 23:59 :00 No .25mg Take 0.5 tablets (0.25 mg total) by mouth 2 (two) times daily as needed for Anxiety for up to 30 days. Max Daily Amount: 0.5 mg [facility] clonazePAM (KlonoPIN) 0.5 MG tablet 04-03 00:00: 00 05-03 23:59 :00 No .25mg Take 0.5 tablets (0.25 mg total) by mouth 2 (two) times daily as needed for Anxiety for up to 30 days. Max Daily Amount: 0.5 mg [facility] clonazePAM (KlonoPIN) 0.5 MG tablet 04-03 00:00: 00 05-03 23:59 :00 No .25mg Take 0.5 tablets (0.25 mg total) by mouth 2 (two) times daily as needed for Anxiety for up to 30 days. Max Daily Amount: 0.5 mg [facility] clonazePAM (KlonoPIN) 0.5 MG tablet 0 04-03 00:00: 00 05-03 23:59 :00 No .25mg Take 0.5 tablets (0.25 mg total) by mouth 2 (two) times daily as needed for Anxiety for up to 30 days. Max Daily Amount: 0.5 mg [facility] clonazePAM (KlonoPIN) 0.5 MG tablet 0 04-03 00:00: 00 05-03 23:59 :00 No .25mg Take 0.5 tablets (0.25 mg total) by mouth 2 (two) times daily as needed for Anxiety for up to 30 days. Max Daily Amount: 0.5 mg [facility] clonazePAM (KlonoPIN) 0.5 MG tablet 15 00:00: 00 05-03 23:59 :00 No .25mg Take 0.5 tablets (0.25 mg total) by mouth 2 (two) times daily as needed for Anxiety for up to 30 days. Max Daily Amount: 0.5 mg [facility] clonazePAM (KlonoPIN) 0.5 MG tablet 04-03 00:00: 00 05-03 23:59 :00 No .25mg Take 0.5 tablets (0.25 mg total) by mouth 2 (two) times daily as needed for Anxiety for up to 30 days. Max Daily Amount: 0.5 mg [facility] clonazePAM (KlonoPIN) 0.5 MG tablet 0 04-03 00:00: 00 05-03 23:59 :00 No .25mg Take 0.5 tablets (0.25 mg total) by mouth 2 (two) times daily as needed for Anxiety for up to 30 days. Max Daily Amount: 0.5 mg [facility] clonazePAM (KlonoPIN) 0.5 MG tablet 04-03 00:00: 00 05-03 23:59 :00 No .25mg Take 0.5 tablets (0.25 mg total) by mouth 2 (two) times daily as needed for Anxiety for up to 30 days. Max Daily Amount: 0.5 mg [facility] clonazePAM (KlonoPIN) 0.5 MG tablet 0 15 00:00: 00 05-03 23:59 :00 No .25mg Take 0.5 tablets (0.25 mg total) by mouth 2 (two) times daily as needed for Anxiety for up to 30 days. Max Daily Amount: 0.5 mg [facility] clonazePAM (KlonoPIN) 0.5 MG tablet 0 15 00:00: 00 05-03 23:59 :00 No .25mg Take 0.5 tablets (0.25 mg total) by mouth 2 (two) times daily as needed for Anxiety for up to 30 days. Max Daily Amount: 0.5 mg [facility] clonazePAM (KlonoPIN) 0.5 MG tablet 04-03 00:00: 00 05-03 23:59 :00 No .25mg Take 0.5 tablets (0.25 mg total) by mouth 2 (two) times daily as needed for Anxiety for up to 30 days. Max Daily Amount: 0.5 mg [facility] clonazePAM (KlonoPIN) 0.5 MG tablet 04-03 00:00: 00 05-03 23:59 :00 No .25mg Take 0.5 tablets (0.25 mg total) by mouth 2 (two) times daily as needed for Anxiety for up to 30 days. Max Daily Amount: 0.5 mg [facility] clonazePAM (KlonoPIN) 0.5 MG tablet 04-03 00:00: 00 05-03 23:59 :00 No .25mg Take 0.5 tablets (0.25 mg total) by mouth 2 (two) times daily as needed for Anxiety for up to 30 days. Max Daily Amount: 0.5 mg [facility] clonazePAM (KlonoPIN) 0.5 MG tablet 04-03 00:00: 00 05-03 23:59 :00 No .25mg Take 0.5 tablets (0.25 mg total) by mouth 2 (two) times daily as needed for Anxiety for up to 30 days. Max Daily Amount: 0.5 mg [facility] HYDROcodone -acetaminop hen (NORCO 10-325) 10-325 mg per tablet 04-03 00:00: 00 04-13 23:59 :00 No 1{tbl} Take 1 tablet by mouth every 6 (six) hours as needed for up to 10 days. Max Daily Amount: 4 tablets [facility] methocarbam oL (ROBAXIN) 500 MG tablet 04-03 00:00: 00 04-13 23:59 :00 No 500mg Q.25D Take 1 tablet (500 mg total) by mouth 4 (four) times daily for 10 days. [facility] HYDROcodone -acetaminop hen (NORCO 10-325) 10-325 mg per tablet 04-03 00:00: 00 04-13 23:59 :00 No 1{tbl} Take 1 tablet by mouth every 6 (six) hours as needed for up to 10 days. Max Daily Amount: 4 tablets [facility] methocarbam oL (ROBAXIN) 500 MG tablet 04-03 00:00: 00 04-13 23:59 :00 No 500mg Q.25D Take 1 tablet (500 mg total) by mouth 4 (four) times daily for 10 days. [facility] HYDROcodone -acetaminop hen (NORCO 10-325) 10-325 mg per tablet 04-03 00:00: 00 04-13 23:59 :00 No 1{tbl} Take 1 tablet by mouth every 6 (six) hours as needed for up to 10 days. Max Daily Amount: 4 tablets [facility] methocarbam oL (ROBAXIN) 500 MG tablet 04-03 00:00: 00 04-13 23:59 :00 No 500mg Q.25D Take 1 tablet (500 mg total) by mouth 4 (four) times daily for 10 days. [facility] HYDROcodone -acetaminop hen (NORCO 10-325) 10-325 mg per tablet 04-03 00:00: 00 04-13 23:59 :00 No 1{tbl} Take 1 tablet by mouth every 6 (six) hours as needed for up to 10 days. Max Daily Amount: 4 tablets [facility] methocarbam oL (ROBAXIN) 500 MG tablet 04-03 00:00: 00 04-13 23:59 :00 No 500mg Q.25D Take 1 tablet (500 mg total) by mouth 4 (four) times daily for 10 days. [facility] HYDROcodone -acetaminop hen (NORCO 10-325) 10-325 mg per tablet 04-03 00:00: 00 04-13 23:59 :00 No 1{tbl} Take 1 tablet by mouth every 6 (six) hours as needed for up to 10 days. Max Daily Amount: 4 tablets [facility] methocarbam oL (ROBAXIN) 500 MG tablet 04-03 00:00: 00 04-13 23:59 :00 No 500mg Q.25D Take 1 tablet (500 mg total) by mouth 4 (four) times daily for 10 days. [facility] HYDROcodone -acetaminop hen (NORCO 10-325) 10-325 mg per tablet 04-03 00:00: 00 04-13 23:59 :00 No 1{tbl} Take 1 tablet by mouth every 6 (six) hours as needed for up to 10 days. Max Daily Amount: 4 tablets [facility] methocarbam oL (ROBAXIN) 500 MG tablet 04-03 00:00: 00 04-13 23:59 :00 No 500mg Q.25D Take 1 tablet (500 mg total) by mouth 4 (four) times daily for 10 days. [facility] HYDROcodone -acetaminop hen (NORCO 10-325) 10-325 mg per tablet 04-03 00:00: 00 04-13 23:59 :00 No 1{tbl} Take 1 tablet by mouth every 6 (six) hours as needed for up to 10 days. Max Daily Amount: 4 tablets [facility] methocarbam oL (ROBAXIN) 500 MG tablet 04-03 00:00: 00 04-13 23:59 :00 No 500mg Q.25D Take 1 tablet (500 mg total) by mouth 4 (four) times daily for 10 days. [facility] HYDROcodone -acetaminop hen (NORCO 10-325) 10-325 mg per tablet 04-03 00:00: 00 04-13 23:59 :00 No 1{tbl} Take 1 tablet by mouth every 6 (six) hours as needed for up to 10 days. Max Daily Amount: 4 tablets [facility] methocarbam oL (ROBAXIN) 500 MG tablet 04-03 00:00: 00 04-13 23:59 :00 No 500mg Q.25D Take 1 tablet (500 mg total) by mouth 4 (four) times daily for 10 days. [facility] HYDROcodone -acetaminop hen (NORCO 10-325) 10-325 mg per tablet 04-03 00:00: 00 04-13 23:59 :00 No 1{tbl} Take 1 tablet by mouth every 6 (six) hours as needed for up to 10 days. Max Daily Amount: 4 tablets [facility] methocarbam oL (ROBAXIN) 500 MG tablet 04-03 00:00: 00 04-13 23:59 :00 No 500mg Q.25D Take 1 tablet (500 mg total) by mouth 4 (four) times daily for 10 days. [facility] HYDROcodone -acetaminop hen (NORCO 10-325) 10-325 mg per tablet 04-03 00:00: 00 04-13 23:59 :00 No 1{tbl} Take 1 tablet by mouth every 6 (six) hours as needed for up to 10 days. Max Daily Amount: 4 tablets [facility] methocarbam oL (ROBAXIN) 500 MG tablet 04-03 00:00: 00 04-13 23:59 :00 No 500mg Q.25D Take 1 tablet (500 mg total) by mouth 4 (four) times daily for 10 days. [facility] HYDROcodone -acetaminop hen (NORCO 10-325) 10-325 mg per tablet 04-03 00:00: 00 04-13 23:59 :00 No 1{tbl} Take 1 tablet by mouth every 6 (six) hours as needed for up to 10 days. Max Daily Amount: 4 tablets [facility] methocarbam oL (ROBAXIN) 500 MG tablet 04-03 00:00: 00 04-13 23:59 :00 No 500mg Q.25D Take 1 tablet (500 mg total) by mouth 4 (four) times daily for 10 days. [facility] HYDROcodone -acetaminop hen (NORCO 10-325) 10-325 mg per tablet 04-03 00:00: 00 04-13 23:59 :00 No 1{tbl} Take 1 tablet by mouth every 6 (six) hours as needed for up to 10 days. Max Daily Amount: 4 tablets [facility] methocarbam oL (ROBAXIN) 500 MG tablet 04-03 00:00: 00 04-13 23:59 :00 No 500mg Q.25D Take 1 tablet (500 mg total) by mouth 4 (four) times daily for 10 days. [facility] HYDROcodone -acetaminop hen (NORCO 10-325) 10-325 mg per tablet 04-03 00:00: 00 04-13 23:59 :00 No 1{tbl} Take 1 tablet by mouth every 6 (six) hours as needed for up to 10 days. Max Daily Amount: 4 tablets [facility] methocarbam oL (ROBAXIN) 500 MG tablet 04-03 00:00: 00 04-13 23:59 :00 No 500mg Q.25D Take 1 tablet (500 mg total) by mouth 4 (four) times daily for 10 days. [facility] HYDROcodone -acetaminop hen (NORCO 10-325) 10-325 mg per tablet 04-03 00:00: 00 04-13 23:59 :00 No 1{tbl} Take 1 tablet by mouth every 6 (six) hours as needed for up to 10 days. Max Daily Amount: 4 tablets [facility] methocarbam oL (ROBAXIN) 500 MG tablet 04-03 00:00: 00 04-13 23:59 :00 No 500mg Q.25D Take 1 tablet (500 mg total) by mouth 4 (four) times daily for 10 days. [facility] HYDROcodone -acetaminop hen (NORCO 10-325) 10-325 mg per tablet 04-03 00:00: 00 04-13 23:59 :00 No 1{tbl} Take 1 tablet by mouth every 6 (six) hours as needed for up to 10 days. Max Daily Amount: 4 tablets [facility] methocarbam oL (ROBAXIN) 500 MG tablet 15 00:00: 00 04-13 23:59 :00 No 500mg Q.25D Take 1 tablet (500 mg total) by mouth 4 (four) times daily for 10 days. [facility] HYDROcodone -acetaminop hen (NORCO 10-325) 10-325 mg per tablet 04-03 00:00: 00 04-13 23:59 :00 No 1{tbl} Take 1 tablet by mouth every 6 (six) hours as needed for up to 10 days. Max Daily Amount: 4 tablets [facility] methocarbam oL (ROBAXIN) 500 MG tablet 04-03 00:00: 00 04-13 23:59 :00 No 500mg Q.25D Take 1 tablet (500 mg total) by mouth 4 (four) times daily for 10 days. [facility] HYDROcodone -acetaminop hen (NORCO 10-325) 10-325 mg per tablet 04-03 00:00: 00 04-13 23:59 :00 No 1{tbl} Take 1 tablet by mouth every 6 (six) hours as needed for up to 10 days. Max Daily Amount: 4 tablets [facility] methocarbam oL (ROBAXIN) 500 MG tablet 04-03 00:00: 00 04-13 23:59 :00 No 500mg Q.25D Take 1 tablet (500 mg total) by mouth 4 (four) times daily for 10 days. [facility] HYDROcodone -acetaminop hen (NORCO 10-325) 10-325 mg per tablet 04-03 00:00: 00 04-13 23:59 :00 No 1{tbl} Take 1 tablet by mouth every 6 (six) hours as needed for up to 10 days. Max Daily Amount: 4 tablets [facility] methocarbam oL (ROBAXIN) 500 MG tablet 15 00:00: 00 04-13 23:59 :00 No 500mg Q.25D Take 1 tablet (500 mg total) by mouth 4 (four) times daily for 10 days. [facility] HYDROcodone -acetaminop hen (NORCO 10-325) 10-325 mg per tablet 04-03 00:00: 00 04-13 23:59 :00 No 1{tbl} Take 1 tablet by mouth every 6 (six) hours as needed for up to 10 days. Max Daily Amount: 4 tablets [facility] methocarbam oL (ROBAXIN) 500 MG tablet 04-03 00:00: 00 04-13 23:59 :00 No 500mg Q.25D Take 1 tablet (500 mg total) by mouth 4 (four) times daily for 10 days. [facility] HYDROcodone -acetaminop hen (NORCO 10-325) 10-325 mg per tablet 04-03 00:00: 00 04-13 23:59 :00 No 1{tbl} Take 1 tablet by mouth every 6 (six) hours as needed for up to 10 days. Max Daily Amount: 4 tablets [facility] methocarbam oL (ROBAXIN) 500 MG tablet 04-03 00:00: 00 04-13 23:59 :00 No 500mg Q.25D Take 1 tablet (500 mg total) by mouth 4 (four) times daily for 10 days. [facility] HYDROcodone -acetaminop hen (NORCO 10-325) 10-325 mg per tablet 04-03 00:00: 00 04-13 23:59 :00 No 1{tbl} Take 1 tablet by mouth every 6 (six) hours as needed for up to 10 days. Max Daily Amount: 4 tablets [facility] methocarbam oL (ROBAXIN) 500 MG tablet 04-03 00:00: 00 04-13 23:59 :00 No 500mg Q.25D Take 1 tablet (500 mg total) by mouth 4 (four) times daily for 10 days. [facility] HYDROcodone -acetaminop hen (NORCO 10-325) 10-325 mg per tablet 04-03 00:00: 00 04-13 23:59 :00 No 1{tbl} Take 1 tablet by mouth every 6 (six) hours as needed for up to 10 days. Max Daily Amount: 4 tablets [facility] methocarbam oL (ROBAXIN) 500 MG tablet 04-03 00:00: 00 04-13 23:59 :00 No 500mg Q.25D Take 1 tablet (500 mg total) by mouth 4 (four) times daily for 10 days. [facility] HYDROcodone -acetaminop hen (NORCO 10-325) 10-325 mg per tablet 04-03 00:00: 00 04-13 23:59 :00 No 1{tbl} Take 1 tablet by mouth every 6 (six) hours as needed for up to 10 days. Max Daily Amount: 4 tablets [facility] methocarbam oL (ROBAXIN) 500 MG tablet 04-03 00:00: 00 04-13 23:59 :00 No 500mg Q.25D Take 1 tablet (500 mg total) by mouth 4 (four) times daily for 10 days. [facility] HYDROcodone -acetaminop hen (NORCO 10-325) 10-325 mg per tablet 04-03 00:00: 00 04-13 23:59 :00 No 1{tbl} Take 1 tablet by mouth every 6 (six) hours as needed for up to 10 days. Max Daily Amount: 4 tablets [facility] methocarbam oL (ROBAXIN) 500 MG tablet 04-03 00:00: 00 04-13 23:59 :00 No 500mg Q.25D Take 1 tablet (500 mg total) by mouth 4 (four) times daily for 10 days. [facility] HYDROcodone -acetaminop hen (NORCO 10-325) 10-325 mg per tablet 04-03 00:00: 00 04-13 23:59 :00 No 1{tbl} Take 1 tablet by mouth every 6 (six) hours as needed for up to 10 days. Max Daily Amount: 4 tablets [facility] methocarbam oL (ROBAXIN) 500 MG tablet 04-03 00:00: 00 04-13 23:59 :00 No 500mg Q.25D Take 1 tablet (500 mg total) by mouth 4 (four) times daily for 10 days. [facility] HYDROcodone -acetaminop hen (NORCO 10-325) 10-325 mg per tablet 04-03 00:00: 00 04-13 23:59 :00 No 1{tbl} Take 1 tablet by mouth every 6 (six) hours as needed for up to 10 days. Max Daily Amount: 4 tablets [facility] methocarbam oL (ROBAXIN) 500 MG tablet 04-03 00:00: 00 04-13 23:59 :00 No 500mg Q.25D Take 1 tablet (500 mg total) by mouth 4 (four) times daily for 10 days. [facility] HYDROcodone -acetaminop hen (NORCO 10-325) 10-325 mg per tablet 04-03 00:00: 00 04-13 23:59 :00 No 1{tbl} Take 1 tablet by mouth every 6 (six) hours as needed for up to 10 days. Max Daily Amount: 4 tablets [facility] methocarbam oL (ROBAXIN) 500 MG tablet 04-03 00:00: 00 04-13 23:59 :00 No 500mg Q.25D Take 1 tablet (500 mg total) by mouth 4 (four) times daily for 10 days. [facility] HYDROcodone -acetaminop hen (NORCO 10-325) 10-325 mg per tablet 04-03 00:00: 00 04-13 23:59 :00 No 1{tbl} Take 1 tablet by mouth every 6 (six) hours as needed for up to 10 days. Max Daily Amount: 4 tablets [facility] methocarbam oL (ROBAXIN) 500 MG tablet 04-03 00:00: 00 04-13 23:59 :00 No 500mg Q.25D Take 1 tablet (500 mg total) by mouth 4 (four) times daily for 10 days. [facility] HYDROcodone -acetaminop hen (NORCO 10-325) 10-325 mg per tablet 04-03 00:00: 00 04-13 23:59 :00 No 1{tbl} Take 1 tablet by mouth every 6 (six) hours as needed for up to 10 days. Max Daily Amount: 4 tablets [facility] methocarbam oL (ROBAXIN) 500 MG tablet 04-03 00:00: 00 04-13 23:59 :00 No 500mg Q.25D Take 1 tablet (500 mg total) by mouth 4 (four) times daily for 10 days. [facility] HYDROcodone -acetaminop hen (NORCO 10-325) 10-325 mg per tablet 04-03 00:00: 00 04-13 23:59 :00 No 1{tbl} Take 1 tablet by mouth every 6 (six) hours as needed for up to 10 days. Max Daily Amount: 4 tablets [facility] methocarbam oL (ROBAXIN) 500 MG tablet 04-03 00:00: 00 04-13 23:59 :00 No 500mg Q.25D Take 1 tablet (500 mg total) by mouth 4 (four) times daily for 10 days. [facility] HYDROcodone -acetaminop hen (NORCO 10-325) 10-325 mg per tablet 04-03 00:00: 00 04-13 23:59 :00 No 1{tbl} Take 1 tablet by mouth every 6 (six) hours as needed for up to 10 days. Max Daily Amount: 4 tablets [facility] methocarbam oL (ROBAXIN) 500 MG tablet 04-03 00:00: 00 04-13 23:59 :00 No 500mg Q.25D Take 1 tablet (500 mg total) by mouth 4 (four) times daily for 10 days. [facility] HYDROcodone -acetaminop hen (NORCO 10-325) 10-325 mg per tablet 04-03 00:00: 00 04-13 23:59 :00 No 1{tbl} Take 1 tablet by mouth every 6 (six) hours as needed for up to 10 days. Max Daily Amount: 4 tablets [facility] methocarbam oL (ROBAXIN) 500 MG tablet 15 00:00: 00 04-13 23:59 :00 No 500mg Q.25D Take 1 tablet (500 mg total) by mouth 4 (four) times daily for 10 days. [facility] HYDROcodone -acetaminop hen (NORCO 10-325) 10-325 mg per tablet 15 00:00: 00 04-13 23:59 :00 No 1{tbl} Take 1 tablet by mouth every 6 (six) hours as needed for up to 10 days. Max Daily Amount: 4 tablets [facility] methocarbam oL (ROBAXIN) 500 MG tablet 04-03 00:00: 00 04-13 23:59 :00 No 500mg Q.25D Take 1 tablet (500 mg total) by mouth 4 (four) times daily for 10 days. [facility] HYDROcodone -acetaminop hen (NORCO 10-325) 10-325 mg per tablet 04-03 00:00: 00 04-13 23:59 :00 No 1{tbl} Take 1 tablet by mouth every 6 (six) hours as needed for up to 10 days. Max Daily Amount: 4 tablets [facility] methocarbam oL (ROBAXIN) 500 MG tablet 04-03 00:00: 00 04-13 23:59 :00 No 500mg Q.25D Take 1 tablet (500 mg total) by mouth 4 (four) times daily for 10 days. [facility] HYDROcodone -acetaminop hen (NORCO 10-325) 10-325 mg per tablet 15 00:00: 00 04-13 23:59 :00 No 1{tbl} Take 1 tablet by mouth every 6 (six) hours as needed for up to 10 days. Max Daily Amount: 4 tablets [facility] methocarbam oL (ROBAXIN) 500 MG tablet 15 00:00: 00 04-13 23:59 :00 No 500mg Q.25D Take 1 tablet (500 mg total) by mouth 4 (four) times daily for 10 days. [facility] HYDROcodone -acetaminop hen (NORCO 10-325) 10-325 mg per tablet 04-03 00:00: 00 04-13 23:59 :00 No 1{tbl} Take 1 tablet by mouth every 6 (six) hours as needed for up to 10 days. Max Daily Amount: 4 tablets [facility] methocarbam oL (ROBAXIN) 500 MG tablet 04-03 00:00: 00 04-13 23:59 :00 No 500mg Q.25D Take 1 tablet (500 mg total) by mouth 4 (four) times daily for 10 days. [facility] HYDROcodone -acetaminop hen (NORCO 10-325) 10-325 mg per tablet 04-03 00:00: 00 04-13 23:59 :00 No 1{tbl} Take 1 tablet by mouth every 6 (six) hours as needed for up to 10 days. Max Daily Amount: 4 tablets [facility] methocarbam oL (ROBAXIN) 500 MG tablet 04-03 00:00: 00 04-13 23:59 :00 No 500mg Q.25D Take 1 tablet (500 mg total) by mouth 4 (four) times daily for 10 days. [facility] HYDROcodone -acetaminop hen (NORCO 10-325) 10-325 mg per tablet 04-03 00:00: 00 04-13 23:59 :00 No 1{tbl} Take 1 tablet by mouth every 6 (six) hours as needed for up to 10 days. Max Daily Amount: 4 tablets [facility] methocarbam oL (ROBAXIN) 500 MG tablet 04-03 00:00: 00 04-13 23:59 :00 No 500mg Q.25D Take 1 tablet (500 mg total) by mouth 4 (four) times daily for 10 days. [facility] HYDROcodone -acetaminop hen (NORCO 10-325) 10-325 mg per tablet 04-03 00:00: 00 04-13 23:59 :00 No 1{tbl} Take 1 tablet by mouth every 6 (six) hours as needed for up to 10 days. Max Daily Amount: 4 tablets [facility] methocarbam oL (ROBAXIN) 500 MG tablet 04-03 00:00: 00 04-13 23:59 :00 No 500mg Q.25D Take 1 tablet (500 mg total) by mouth 4 (four) times daily for 10 days. [facility] HYDROcodone -acetaminop hen (NORCO 10-325) 10-325 mg per tablet 04-03 00:00: 00 04-13 23:59 :00 No 1{tbl} Take 1 tablet by mouth every 6 (six) hours as needed for up to 10 days. Max Daily Amount: 4 tablets [facility] methocarbam oL (ROBAXIN) 500 MG tablet 04-03 00:00: 00 04-13 23:59 :00 No 500mg Q.25D Take 1 tablet (500 mg total) by mouth 4 (four) times daily for 10 days. [facility] HYDROcodone -acetaminop hen (NORCO 10-325) 10-325 mg per tablet 04-03 00:00: 00 04-13 23:59 :00 No 1{tbl} Take 1 tablet by mouth every 6 (six) hours as needed for up to 10 days. Max Daily Amount: 4 tablets [facility] methocarbam oL (ROBAXIN) 500 MG tablet 04-03 00:00: 00 04-13 23:59 :00 No 500mg Q.25D Take 1 tablet (500 mg total) by mouth 4 (four) times daily for 10 days. [facility] HYDROcodone -acetaminop hen (NORCO 10-325) 10-325 mg per tablet 04-03 00:00: 00 04-13 23:59 :00 No 1{tbl} Take 1 tablet by mouth every 6 (six) hours as needed for up to 10 days. Max Daily Amount: 4 tablets [facility] methocarbam oL (ROBAXIN) 500 MG tablet 04-03 00:00: 00 04-13 23:59 :00 No 500mg Q.25D Take 1 tablet (500 mg total) by mouth 4 (four) times daily for 10 days. [facility] aspirin 81 MG EC tablet 04-03 00:00: 00 04-03 00:00 :00 No 81mg QD Take 1 tablet (81 mg total) by mouth daily for 90 days. [facility] DULoxetine (CYMBALTA) 30 MG capsule 04-03 00:00: 00 04-03 00:00 :00 No 30mg QD Take 1 capsule (30 mg total) by mouth daily. [facility] furosemide (LASIX) 20 MG tablet 04-03 00:00: 00 04-03 00:00 :00 No 20mg QD Take 1 tablet (20 mg total) by mouth daily. [facility] lisinopriL (PRINIVIL,Z ESTRIL) 5 MG tablet 04-03 00:00: 00 04-03 00:00 :00 No 5mg QD Take 1 tablet (5 mg total) by mouth daily. [facility] lisinopriL (PRINIVIL,Z ESTRIL) 5 MG tablet 04-03 00:00: 00 04-03 00:00 :00 No 5mg QD Take 1 tablet (5 mg total) by mouth daily. [facility] aspirin 81 MG EC tablet 04-03 00:00: 00 04-03 00:00 :00 No 81mg QD Take 1 tablet (81 mg total) by mouth daily for 90 days. [facility] DULoxetine (CYMBALTA) 30 MG capsule 04-03 00:00: 00 04-03 00:00 :00 No 30mg QD Take 1 capsule (30 mg total) by mouth daily. [facility] furosemide (LASIX) 20 MG tablet 04-03 00:00: 00 04-03 00:00 :00 No 20mg QD Take 1 tablet (20 mg total) by mouth daily. [facility] lisinopriL (PRINIVIL,Z ESTRIL) 5 MG tablet 04-03 00:00: 00 04-03 00:00 :00 No 5mg QD Take 1 tablet (5 mg total) by mouth daily. [facility] aspirin 81 MG EC tablet 04-03 00:00: 00 04-03 00:00 :00 No 81mg QD Take 1 tablet (81 mg total) by mouth daily for 90 days. [facility] DULoxetine (CYMBALTA) 30 MG capsule 04-03 00:00: 00 04-03 00:00 :00 No 30mg QD Take 1 capsule (30 mg total) by mouth daily. [facility] furosemide (LASIX) 20 MG tablet 04-03 00:00: 00 04-03 00:00 :00 No 20mg QD Take 1 tablet (20 mg total) by mouth daily. [facility] lisinopriL (PRINIVIL,Z ESTRIL) 5 MG tablet 04-03 00:00: 00 04-03 00:00 :00 No 5mg QD Take 1 tablet (5 mg total) by mouth daily. [facility] aspirin 81 MG EC tablet 04-03 00:00: 00 04-03 00:00 :00 No 81mg QD Take 1 tablet (81 mg total) by mouth daily for 90 days. [facility] DULoxetine (CYMBALTA) 30 MG capsule 04-03 00:00: 00 04-03 00:00 :00 No 30mg QD Take 1 capsule (30 mg total) by mouth daily. [facility] furosemide (LASIX) 20 MG tablet 04-03 00:00: 00 04-03 00:00 :00 No 20mg QD Take 1 tablet (20 mg total) by mouth daily. [facility] lisinopriL (PRINIVIL,Z ESTRIL) 5 MG tablet 04-03 00:00: 00 04-03 00:00 :00 No 5mg QD Take 1 tablet (5 mg total) by mouth daily. [facility] aspirin 81 MG EC tablet 04-03 00:00: 00 04-03 00:00 :00 No 81mg QD Take 1 tablet (81 mg total) by mouth daily for 90 days. [facility] DULoxetine (CYMBALTA) 30 MG capsule 04-03 00:00: 00 04-03 00:00 :00 No 30mg QD Take 1 capsule (30 mg total) by mouth daily. [facility] furosemide (LASIX) 20 MG tablet 04-03 00:00: 00 04-03 00:00 :00 No 20mg QD Take 1 tablet (20 mg total) by mouth daily. [facility] lisinopriL (PRINIVIL,Z ESTRIL) 5 MG tablet 04-03 00:00: 00 04-03 00:00 :00 No 5mg QD Take 1 tablet (5 mg total) by mouth daily. [facility] aspirin 81 MG EC tablet 04-03 00:00: 00 04-03 00:00 :00 No 81mg QD Take 1 tablet (81 mg total) by mouth daily for 90 days. [facility] DULoxetine (CYMBALTA) 30 MG capsule 04-03 00:00: 00 04-03 00:00 :00 No 30mg QD Take 1 capsule (30 mg total) by mouth daily. [facility] furosemide (LASIX) 20 MG tablet 04-03 00:00: 00 04-03 00:00 :00 No 20mg QD Take 1 tablet (20 mg total) by mouth daily. [facility] lisinopriL (PRINIVIL,Z ESTRIL) 5 MG tablet 04-03 00:00: 00 04-03 00:00 :00 No 5mg QD Take 1 tablet (5 mg total) by mouth daily. [facility] aspirin 81 MG EC tablet 04-03 00:00: 00 04-03 00:00 :00 No 81mg QD Take 1 tablet (81 mg total) by mouth daily for 90 days. [facility] DULoxetine (CYMBALTA) 30 MG capsule 04-03 00:00: 00 04-03 00:00 :00 No 30mg QD Take 1 capsule (30 mg total) by mouth daily. [facility] furosemide (LASIX) 20 MG tablet 04-03 00:00: 00 04-03 00:00 :00 No 20mg QD Take 1 tablet (20 mg total) by mouth daily. [facility] aspirin 81 MG EC tablet 04-03 00:00: 00 04-03 00:00 :00 No 81mg QD Take 1 tablet (81 mg total) by mouth daily for 90 days. [facility] DULoxetine (CYMBALTA) 30 MG capsule 04-03 00:00: 00 04-03 00:00 :00 No 30mg QD Take 1 capsule (30 mg total) by mouth daily. [facility] furosemide (LASIX) 20 MG tablet 04-03 00:00: 00 04-03 00:00 :00 No 20mg QD Take 1 tablet (20 mg total) by mouth daily. [facility] lisinopriL (PRINIVIL,Z ESTRIL) 5 MG tablet 04-03 00:00: 00 04-03 00:00 :00 No 5mg QD Take 1 tablet (5 mg total) by mouth daily. [facility] lisinopriL (PRINIVIL,Z ESTRIL) 5 MG tablet 04-03 00:00: 00 04-03 00:00 :00 No 5mg QD Take 1 tablet (5 mg total) by mouth daily. [facility] aspirin 81 MG EC tablet 04-03 00:00: 00 04-03 00:00 :00 No 81mg QD Take 1 tablet (81 mg total) by mouth daily for 90 days. [facility] DULoxetine (CYMBALTA) 30 MG capsule 04-03 00:00: 00 04-03 00:00 :00 No 30mg QD Take 1 capsule (30 mg total) by mouth daily. [facility] furosemide (LASIX) 20 MG tablet 04-03 00:00: 00 04-03 00:00 :00 No 20mg QD Take 1 tablet (20 mg total) by mouth daily. [facility] lisinopriL (PRINIVIL,Z ESTRIL) 5 MG tablet 04-03 00:00: 00 04-03 00:00 :00 No 5mg QD Take 1 tablet (5 mg total) by mouth daily. [facility] aspirin 81 MG EC tablet 04-03 00:00: 00 04-03 00:00 :00 No 81mg QD Take 1 tablet (81 mg total) by mouth daily for 90 days. [facility] DULoxetine (CYMBALTA) 30 MG capsule 04-03 00:00: 00 04-03 00:00 :00 No 30mg QD Take 1 capsule (30 mg total) by mouth daily. [facility] furosemide (LASIX) 20 MG tablet 04-03 00:00: 00 04-03 00:00 :00 No 20mg QD Take 1 tablet (20 mg total) by mouth daily. [facility] lisinopriL (PRINIVIL,Z ESTRIL) 5 MG tablet 04-03 00:00: 00 04-03 00:00 :00 No 5mg QD Take 1 tablet (5 mg total) by mouth daily. [facility] aspirin 81 MG EC tablet 04-03 00:00: 00 04-03 00:00 :00 No 81mg QD Take 1 tablet (81 mg total) by mouth daily for 90 days. [facility] DULoxetine (CYMBALTA) 30 MG capsule 04-03 00:00: 00 04-03 00:00 :00 No 30mg QD Take 1 capsule (30 mg total) by mouth daily. [facility] furosemide (LASIX) 20 MG tablet 04-03 00:00: 00 04-03 00:00 :00 No 20mg QD Take 1 tablet (20 mg total) by mouth daily. [facility] lisinopriL (PRINIVIL,Z ESTRIL) 5 MG tablet 04-03 00:00: 00 04-03 00:00 :00 No 5mg QD Take 1 tablet (5 mg total) by mouth daily. [facility] aspirin 81 MG EC tablet 04-03 00:00: 00 04-03 00:00 :00 No 81mg QD Take 1 tablet (81 mg total) by mouth daily for 90 days. [facility] DULoxetine (CYMBALTA) 30 MG capsule 04-03 00:00: 00 04-03 00:00 :00 No 30mg QD Take 1 capsule (30 mg total) by mouth daily. [facility] furosemide (LASIX) 20 MG tablet 04-03 00:00: 00 04-03 00:00 :00 No 20mg QD Take 1 tablet (20 mg total) by mouth daily. [facility] lisinopriL (PRINIVIL,Z ESTRIL) 5 MG tablet 04-03 00:00: 00 04-03 00:00 :00 No 5mg QD Take 1 tablet (5 mg total) by mouth daily. [facility] aspirin 81 MG EC tablet 04-03 00:00: 00 04-03 00:00 :00 No 81mg QD Take 1 tablet (81 mg total) by mouth daily for 90 days. [facility] DULoxetine (CYMBALTA) 30 MG capsule 04-03 00:00: 00 04-03 00:00 :00 No 30mg QD Take 1 capsule (30 mg total) by mouth daily. [facility] furosemide (LASIX) 20 MG tablet 04-03 00:00: 00 04-03 00:00 :00 No 20mg QD Take 1 tablet (20 mg total) by mouth daily. [facility] lisinopriL (PRINIVIL,Z ESTRIL) 5 MG tablet 04-03 00:00: 00 04-03 00:00 :00 No 5mg QD Take 1 tablet (5 mg total) by mouth daily. [facility] aspirin 81 MG EC tablet 04-03 00:00: 00 04-03 00:00 :00 No 81mg QD Take 1 tablet (81 mg total) by mouth daily for 90 days. [facility] DULoxetine (CYMBALTA) 30 MG capsule 04-03 00:00: 00 04-03 00:00 :00 No 30mg QD Take 1 capsule (30 mg total) by mouth daily. [facility] aspirin 81 MG EC tablet 04-03 00:00: 00 04-03 00:00 :00 No 81mg QD Take 1 tablet (81 mg total) by mouth daily for 90 days. [facility] DULoxetine (CYMBALTA) 30 MG capsule 04-03 00:00: 00 04-03 00:00 :00 No 30mg QD Take 1 capsule (30 mg total) by mouth daily. [facility] furosemide (LASIX) 20 MG tablet 04-03 00:00: 00 04-03 00:00 :00 No 20mg QD Take 1 tablet (20 mg total) by mouth daily. [facility] furosemide (LASIX) 20 MG tablet 04-03 00:00: 00 04-03 00:00 :00 No 20mg QD Take 1 tablet (20 mg total) by mouth daily. [facility] lisinopriL (PRINIVIL,Z ESTRIL) 5 MG tablet 04-03 00:00: 00 04-03 00:00 :00 No 5mg QD Take 1 tablet (5 mg total) by mouth daily. [facility] lisinopriL (PRINIVIL,Z ESTRIL) 5 MG tablet 04-03 00:00: 00 04-03 00:00 :00 No 5mg QD Take 1 tablet (5 mg total) by mouth daily. [facility] aspirin 81 MG EC tablet 04-03 00:00: 00 04-03 00:00 :00 No 81mg QD Take 1 tablet (81 mg total) by mouth daily for 90 days. [facility] DULoxetine (CYMBALTA) 30 MG capsule 04-03 00:00: 00 04-03 00:00 :00 No 30mg QD Take 1 capsule (30 mg total) by mouth daily. [facility] furosemide (LASIX) 20 MG tablet 04-03 00:00: 00 04-03 00:00 :00 No 20mg QD Take 1 tablet (20 mg total) by mouth daily. [facility] lisinopriL (PRINIVIL,Z ESTRIL) 5 MG tablet 04-03 00:00: 00 04-03 00:00 :00 No 5mg QD Take 1 tablet (5 mg total) by mouth daily. [facility] aspirin 81 MG EC tablet 04-03 00:00: 00 04-03 00:00 :00 No 81mg QD Take 1 tablet (81 mg total) by mouth daily for 90 days. [facility] DULoxetine (CYMBALTA) 30 MG capsule 04-03 00:00: 00 04-03 00:00 :00 No 30mg QD Take 1 capsule (30 mg total) by mouth daily. [facility] furosemide (LASIX) 20 MG tablet 04-03 00:00: 00 04-03 00:00 :00 No 20mg QD Take 1 tablet (20 mg total) by mouth daily. [facility] lisinopriL (PRINIVIL,Z ESTRIL) 5 MG tablet 04-03 00:00: 00 04-03 00:00 :00 No 5mg QD Take 1 tablet (5 mg total) by mouth daily. [facility] aspirin 81 MG EC tablet 04-03 00:00: 00 04-03 00:00 :00 No 81mg QD Take 1 tablet (81 mg total) by mouth daily for 90 days. [facility] DULoxetine (CYMBALTA) 30 MG capsule 04-03 00:00: 00 04-03 00:00 :00 No 30mg QD Take 1 capsule (30 mg total) by mouth daily. [facility] furosemide (LASIX) 20 MG tablet 04-03 00:00: 00 04-03 00:00 :00 No 20mg QD Take 1 tablet (20 mg total) by mouth daily. [facility] lisinopriL (PRINIVIL,Z ESTRIL) 5 MG tablet 04-03 00:00: 00 04-03 00:00 :00 No 5mg QD Take 1 tablet (5 mg total) by mouth daily. [facility] aspirin 81 MG EC tablet 04-03 00:00: 00 04-03 00:00 :00 No 81mg QD Take 1 tablet (81 mg total) by mouth daily for 90 days. [facility] DULoxetine (CYMBALTA) 30 MG capsule 04-03 00:00: 00 04-03 00:00 :00 No 30mg QD Take 1 capsule (30 mg total) by mouth daily. [facility] furosemide (LASIX) 20 MG tablet 04-03 00:00: 00 04-03 00:00 :00 No 20mg QD Take 1 tablet (20 mg total) by mouth daily. [facility] lisinopriL (PRINIVIL,Z ESTRIL) 5 MG tablet 04-03 00:00: 00 04-03 00:00 :00 No 5mg QD Take 1 tablet (5 mg total) by mouth daily. [facility] aspirin 81 MG EC tablet 04-03 00:00: 00 04-03 00:00 :00 No 81mg QD Take 1 tablet (81 mg total) by mouth daily for 90 days. [facility] DULoxetine (CYMBALTA) 30 MG capsule 04-03 00:00: 00 04-03 00:00 :00 No 30mg QD Take 1 capsule (30 mg total) by mouth daily. [facility] furosemide (LASIX) 20 MG tablet 04-03 00:00: 00 04-03 00:00 :00 No 20mg QD Take 1 tablet (20 mg total) by mouth daily. [facility] lisinopriL (PRINIVIL,Z ESTRIL) 5 MG tablet 04-03 00:00: 00 04-03 00:00 :00 No 5mg QD Take 1 tablet (5 mg total) by mouth daily. [facility] aspirin 81 MG EC tablet 04-03 00:00: 00 04-03 00:00 :00 No 81mg QD Take 1 tablet (81 mg total) by mouth daily for 90 days. [facility] aspirin 81 MG EC tablet 04-03 00:00: 00 04-03 00:00 :00 No 81mg QD Take 1 tablet (81 mg total) by mouth daily for 90 days. [facility] DULoxetine (CYMBALTA) 30 MG capsule 04-03 00:00: 00 04-03 00:00 :00 No 30mg QD Take 1 capsule (30 mg total) by mouth daily. [facility] furosemide (LASIX) 20 MG tablet 04-03 00:00: 00 04-03 00:00 :00 No 20mg QD Take 1 tablet (20 mg total) by mouth daily. [facility] lisinopriL (PRINIVIL,Z ESTRIL) 5 MG tablet 04-03 00:00: 00 04-03 00:00 :00 No 5mg QD Take 1 tablet (5 mg total) by mouth daily. [facility] DULoxetine (CYMBALTA) 30 MG capsule 04-03 00:00: 00 04-03 00:00 :00 No 30mg QD Take 1 capsule (30 mg total) by mouth daily. [facility] furosemide (LASIX) 20 MG tablet 04-03 00:00: 00 04-03 00:00 :00 No 20mg QD Take 1 tablet (20 mg total) by mouth daily. [facility] lisinopriL (PRINIVIL,Z ESTRIL) 5 MG tablet 04-03 00:00: 00 04-03 00:00 :00 No 5mg QD Take 1 tablet (5 mg total) by mouth daily. [facility] aspirin 81 MG EC tablet 04-03 00:00: 00 04-03 00:00 :00 No 81mg QD Take 1 tablet (81 mg total) by mouth daily for 90 days. [facility] DULoxetine (CYMBALTA) 30 MG capsule 04-03 00:00: 00 04-03 00:00 :00 No 30mg QD Take 1 capsule (30 mg total) by mouth daily. [facility] furosemide (LASIX) 20 MG tablet 04-03 00:00: 00 04-03 00:00 :00 No 20mg QD Take 1 tablet (20 mg total) by mouth daily. [facility] lisinopriL (PRINIVIL,Z ESTRIL) 5 MG tablet 04-03 00:00: 00 04-03 00:00 :00 No 5mg QD Take 1 tablet (5 mg total) by mouth daily. [facility] aspirin 81 MG EC tablet 04-03 00:00: 00 04-03 00:00 :00 No 81mg QD Take 1 tablet (81 mg total) by mouth daily for 90 days. [facility] DULoxetine (CYMBALTA) 30 MG capsule 04-03 00:00: 00 04-03 00:00 :00 No 30mg QD Take 1 capsule (30 mg total) by mouth daily. [facility] furosemide (LASIX) 20 MG tablet 04-03 00:00: 00 04-03 00:00 :00 No 20mg QD Take 1 tablet (20 mg total) by mouth daily. [facility] lisinopriL (PRINIVIL,Z ESTRIL) 5 MG tablet 04-03 00:00: 00 04-03 00:00 :00 No 5mg QD Take 1 tablet (5 mg total) by mouth daily. [facility] aspirin 81 MG EC tablet 04-03 00:00: 00 04-03 00:00 :00 No 81mg QD Take 1 tablet (81 mg total) by mouth daily for 90 days. [facility] DULoxetine (CYMBALTA) 30 MG capsule 04-03 00:00: 00 04-03 00:00 :00 No 30mg QD Take 1 capsule (30 mg total) by mouth daily. [facility] furosemide (LASIX) 20 MG tablet 04-03 00:00: 00 04-03 00:00 :00 No 20mg QD Take 1 tablet (20 mg total) by mouth daily. [facility] lisinopriL (PRINIVIL,Z ESTRIL) 5 MG tablet 04-03 00:00: 00 04-03 00:00 :00 No 5mg QD Take 1 tablet (5 mg total) by mouth daily. [facility] aspirin 81 MG EC tablet 04-03 00:00: 00 04-03 00:00 :00 No 81mg QD Take 1 tablet (81 mg total) by mouth daily for 90 days. [facility] DULoxetine (CYMBALTA) 30 MG capsule 04-03 00:00: 00 04-03 00:00 :00 No 30mg QD Take 1 capsule (30 mg total) by mouth daily. [facility] aspirin 81 MG EC tablet 04-03 00:00: 00 04-03 00:00 :00 No 81mg QD Take 1 tablet (81 mg total) by mouth daily for 90 days. [facility] DULoxetine (CYMBALTA) 30 MG capsule 04-03 00:00: 00 04-03 00:00 :00 No 30mg QD Take 1 capsule (30 mg total) by mouth daily. [facility] furosemide (LASIX) 20 MG tablet 04-03 00:00: 00 04-03 00:00 :00 No 20mg QD Take 1 tablet (20 mg total) by mouth daily. [facility] furosemide (LASIX) 20 MG tablet 04-03 00:00: 00 04-03 00:00 :00 No 20mg QD Take 1 tablet (20 mg total) by mouth daily. [facility] lisinopriL (PRINIVIL,Z ESTRIL) 5 MG tablet 04-03 00:00: 00 04-03 00:00 :00 No 5mg QD Take 1 tablet (5 mg total) by mouth daily. [facility] lisinopriL (PRINIVIL,Z ESTRIL) 5 MG tablet 04-03 00:00: 00 04-03 00:00 :00 No 5mg QD Take 1 tablet (5 mg total) by mouth daily. [facility] aspirin 81 MG EC tablet 04-03 00:00: 00 04-03 00:00 :00 No 81mg QD Take 1 tablet (81 mg total) by mouth daily for 90 days. [facility] DULoxetine (CYMBALTA) 30 MG capsule 04-03 00:00: 00 04-03 00:00 :00 No 30mg QD Take 1 capsule (30 mg total) by mouth daily. [facility] furosemide (LASIX) 20 MG tablet 04-03 00:00: 00 04-03 00:00 :00 No 20mg QD Take 1 tablet (20 mg total) by mouth daily. [facility] lisinopriL (PRINIVIL,Z ESTRIL) 5 MG tablet 04-03 00:00: 00 04-03 00:00 :00 No 5mg QD Take 1 tablet (5 mg total) by mouth daily. [facility] aspirin 81 MG EC tablet 04-03 00:00: 00 04-03 00:00 :00 No 81mg QD Take 1 tablet (81 mg total) by mouth daily for 90 days. [facility] DULoxetine (CYMBALTA) 30 MG capsule 04-03 00:00: 00 04-03 00:00 :00 No 30mg QD Take 1 capsule (30 mg total) by mouth daily. [facility] furosemide (LASIX) 20 MG tablet 04-03 00:00: 00 04-03 00:00 :00 No 20mg QD Take 1 tablet (20 mg total) by mouth daily. [facility] lisinopriL (PRINIVIL,Z ESTRIL) 5 MG tablet 04-03 00:00: 00 04-03 00:00 :00 No 5mg QD Take 1 tablet (5 mg total) by mouth daily. [facility] aspirin 81 MG EC tablet 04-03 00:00: 00 04-03 00:00 :00 No 81mg QD Take 1 tablet (81 mg total) by mouth daily for 90 days. [facility] DULoxetine (CYMBALTA) 30 MG capsule 04-03 00:00: 00 04-03 00:00 :00 No 30mg QD Take 1 capsule (30 mg total) by mouth daily. [facility] furosemide (LASIX) 20 MG tablet 04-03 00:00: 00 04-03 00:00 :00 No 20mg QD Take 1 tablet (20 mg total) by mouth daily. [facility] lisinopriL (PRINIVIL,Z ESTRIL) 5 MG tablet 04-03 00:00: 00 04-03 00:00 :00 No 5mg QD Take 1 tablet (5 mg total) by mouth daily. [facility] aspirin 81 MG EC tablet 04-03 00:00: 00 04-03 00:00 :00 No 81mg QD Take 1 tablet (81 mg total) by mouth daily for 90 days. [facility] DULoxetine (CYMBALTA) 30 MG capsule 04-03 00:00: 00 04-03 00:00 :00 No 30mg QD Take 1 capsule (30 mg total) by mouth daily. [facility] furosemide (LASIX) 20 MG tablet 04-03 00:00: 00 04-03 00:00 :00 No 20mg QD Take 1 tablet (20 mg total) by mouth daily. [facility] lisinopriL (PRINIVIL,Z ESTRIL) 5 MG tablet 04-03 00:00: 00 04-03 00:00 :00 No 5mg QD Take 1 tablet (5 mg total) by mouth daily. [facility] aspirin 81 MG EC tablet 04-03 00:00: 00 04-03 00:00 :00 No 81mg QD Take 1 tablet (81 mg total) by mouth daily for 90 days. [facility] DULoxetine (CYMBALTA) 30 MG capsule 04-03 00:00: 00 04-03 00:00 :00 No 30mg QD Take 1 capsule (30 mg total) by mouth daily. [facility] furosemide (LASIX) 20 MG tablet 04-03 00:00: 00 04-03 00:00 :00 No 20mg QD Take 1 tablet (20 mg total) by mouth daily. [facility] lisinopriL (PRINIVIL,Z ESTRIL) 5 MG tablet 04-03 00:00: 00 04-03 00:00 :00 No 5mg QD Take 1 tablet (5 mg total) by mouth daily. [facility] aspirin 81 MG EC tablet 04-03 00:00: 00 04-03 00:00 :00 No 81mg QD Take 1 tablet (81 mg total) by mouth daily for 90 days. [facility] DULoxetine (CYMBALTA) 30 MG capsule 04-03 00:00: 00 04-03 00:00 :00 No 30mg QD Take 1 capsule (30 mg total) by mouth daily. [facility] furosemide (LASIX) 20 MG tablet 04-03 00:00: 00 04-03 00:00 :00 No 20mg QD Take 1 tablet (20 mg total) by mouth daily. [facility] lisinopriL (PRINIVIL,Z ESTRIL) 5 MG tablet 04-03 00:00: 00 04-03 00:00 :00 No 5mg QD Take 1 tablet (5 mg total) by mouth daily. [facility] aspirin 81 MG EC tablet 04-03 00:00: 00 04-03 00:00 :00 No 81mg QD Take 1 tablet (81 mg total) by mouth daily for 90 days. [facility] DULoxetine (CYMBALTA) 30 MG capsule 04-03 00:00: 00 04-03 00:00 :00 No 30mg QD Take 1 capsule (30 mg total) by mouth daily. [facility] furosemide (LASIX) 20 MG tablet 04-03 00:00: 00 04-03 00:00 :00 No 20mg QD Take 1 tablet (20 mg total) by mouth daily. [facility] lisinopriL (PRINIVIL,Z ESTRIL) 5 MG tablet 04-03 00:00: 00 04-03 00:00 :00 No 5mg QD Take 1 tablet (5 mg total) by mouth daily. [facility] aspirin 81 MG EC tablet 04-03 00:00: 00 04-03 00:00 :00 No 81mg QD Take 1 tablet (81 mg total) by mouth daily for 90 days. [facility] DULoxetine (CYMBALTA) 30 MG capsule 04-03 00:00: 00 04-03 00:00 :00 No 30mg QD Take 1 capsule (30 mg total) by mouth daily. [facility] furosemide (LASIX) 20 MG tablet 04-03 00:00: 00 04-03 00:00 :00 No 20mg QD Take 1 tablet (20 mg total) by mouth daily. [facility] lisinopriL (PRINIVIL,Z ESTRIL) 5 MG tablet 04-03 00:00: 00 04-03 00:00 :00 No 5mg QD Take 1 tablet (5 mg total) by mouth daily. [facility] aspirin 81 MG EC tablet 04-03 00:00: 00 04-03 00:00 :00 No 81mg QD Take 1 tablet (81 mg total) by mouth daily for 90 days. [facility] DULoxetine (CYMBALTA) 30 MG capsule 04-03 00:00: 00 04-03 00:00 :00 No 30mg QD Take 1 capsule (30 mg total) by mouth daily. [facility] furosemide (LASIX) 20 MG tablet 04-03 00:00: 00 04-03 00:00 :00 No 20mg QD Take 1 tablet (20 mg total) by mouth daily. [facility] lisinopriL (PRINIVIL,Z ESTRIL) 5 MG tablet 04-03 00:00: 00 04-03 00:00 :00 No 5mg QD Take 1 tablet (5 mg total) by mouth daily. [facility] aspirin 81 MG EC tablet 04-03 00:00: 00 04-03 00:00 :00 No 81mg QD Take 1 tablet (81 mg total) by mouth daily for 90 days. [facility] DULoxetine (CYMBALTA) 30 MG capsule 04-03 00:00: 00 04-03 00:00 :00 No 30mg QD Take 1 capsule (30 mg total) by mouth daily. [facility] furosemide (LASIX) 20 MG tablet 04-03 00:00: 00 04-03 00:00 :00 No 20mg QD Take 1 tablet (20 mg total) by mouth daily. [facility] lisinopriL (PRINIVIL,Z ESTRIL) 5 MG tablet 04-03 00:00: 00 04-03 00:00 :00 No 5mg QD Take 1 tablet (5 mg total) by mouth daily. [facility] aspirin 81 MG EC tablet 04-03 00:00: 00 04-03 00:00 :00 No 81mg QD Take 1 tablet (81 mg total) by mouth daily for 90 days. [facility] DULoxetine (CYMBALTA) 30 MG capsule 04-03 00:00: 00 04-03 00:00 :00 No 30mg QD Take 1 capsule (30 mg total) by mouth daily. [facility] furosemide (LASIX) 20 MG tablet 04-03 00:00: 00 04-03 00:00 :00 No 20mg QD Take 1 tablet (20 mg total) by mouth daily. [facility] lisinopriL (PRINIVIL,Z ESTRIL) 5 MG tablet 04-03 00:00: 00 04-03 00:00 :00 No 5mg QD Take 1 tablet (5 mg total) by mouth daily. [facility] aspirin 81 MG EC tablet 04-03 00:00: 00 04-03 00:00 :00 No 81mg QD Take 1 tablet (81 mg total) by mouth daily for 90 days. [facility] DULoxetine (CYMBALTA) 30 MG capsule 04-03 00:00: 00 04-03 00:00 :00 No 30mg QD Take 1 capsule (30 mg total) by mouth daily. [facility] furosemide (LASIX) 20 MG tablet 04-03 00:00: 00 04-03 00:00 :00 No 20mg QD Take 1 tablet (20 mg total) by mouth daily. [facility] lisinopriL (PRINIVIL,Z ESTRIL) 5 MG tablet 04-03 00:00: 00 04-03 00:00 :00 No 5mg QD Take 1 tablet (5 mg total) by mouth daily. [facility] aspirin 81 MG EC tablet 04-03 00:00: 00 04-03 00:00 :00 No 81mg QD Take 1 tablet (81 mg total) by mouth daily for 90 days. [facility] DULoxetine (CYMBALTA) 30 MG capsule 04-03 00:00: 00 04-03 00:00 :00 No 30mg QD Take 1 capsule (30 mg total) by mouth daily. [facility] furosemide (LASIX) 20 MG tablet 04-03 00:00: 00 04-03 00:00 :00 No 20mg QD Take 1 tablet (20 mg total) by mouth daily. [facility] lisinopriL (PRINIVIL,Z ESTRIL) 5 MG tablet 04-03 00:00: 00 04-03 00:00 :00 No 5mg QD Take 1 tablet (5 mg total) by mouth daily. [facility] aspirin 81 MG EC tablet 04-03 00:00: 00 04-03 00:00 :00 No 81mg QD Take 1 tablet (81 mg total) by mouth daily for 90 days. [facility] DULoxetine (CYMBALTA) 30 MG capsule 04-03 00:00: 00 04-03 00:00 :00 No 30mg QD Take 1 capsule (30 mg total) by mouth daily. [facility] furosemide (LASIX) 20 MG tablet 04-03 00:00: 00 04-03 00:00 :00 No 20mg QD Take 1 tablet (20 mg total) by mouth daily. [facility] aspirin 81 MG EC tablet 04-03 00:00: 00 04-03 00:00 :00 No 81mg QD Take 1 tablet (81 mg total) by mouth daily for 90 days. [facility] DULoxetine (CYMBALTA) 30 MG capsule 04-03 00:00: 00 04-03 00:00 :00 No 30mg QD Take 1 capsule (30 mg total) by mouth daily. [facility] furosemide (LASIX) 20 MG tablet 04-03 00:00: 00 04-03 00:00 :00 No 20mg QD Take 1 tablet (20 mg total) by mouth daily. [facility] lisinopriL (PRINIVIL,Z ESTRIL) 5 MG tablet 04-03 00:00: 00 04-03 00:00 :00 No 5mg QD Take 1 tablet (5 mg total) by mouth daily. [facility] gabapentin (NEURONTIN) 300 MG capsule 04-02 00:00: 00 04-03 00:00 :00 No 300mg Q.[id number] 3D Take 1 capsule (300 mg total) by mouth 3 (three) times daily for 90 days. [facility] divalproex (DEPAKOTE) 500 MG EC tablet 04-02 00:00: 00 04-03 00:00 :00 No 500mg Q.5D Take 1 tablet (500 mg total) by mouth 2 (two) times daily for 90 days. [facility] clonazePAM (KlonoPIN) 0.5 MG tablet 04-02 00:00: 00 04-03 00:00 :00 No .25mg Take 0.5 tablets (0.25 mg total) by mouth 2 (two) times daily as needed for Anxiety for up to 30 days. Max Daily Amount: 0.5 mg [facility] gabapentin (NEURONTIN) 300 MG capsule 04-02 00:00: 00 04-03 00:00 :00 No 300mg Q.[id number] 3D Take 1 capsule (300 mg total) by mouth 3 (three) times daily for 90 days. [facility] HYDROcodone -acetaminop hen (NORCO 10-325) 10-325 mg per tablet 04-02 00:00: 00 04-03 00:00 :00 No 1{tbl} Take 1 tablet by mouth every 6 (six) hours as needed for up to 10 days. Max Daily Amount: 4 tablets [facility] HYDROcodone -acetaminop hen (NORCO 10-325) 10-325 mg per tablet 04-02 00:00: 00 04-03 00:00 :00 No 1{tbl} Take 1 tablet by mouth every 6 (six) hours as needed for up to 10 days. Max Daily Amount: 4 tablets [facility] methocarbam oL (ROBAXIN) 500 MG tablet 04-02 00:00: 00 04-03 00:00 :00 No 500mg Q.25D Take 1 tablet (500 mg total) by mouth 4 (four) times daily for 10 days. [facility] methocarbam oL (ROBAXIN) 500 MG tablet 04-02 00:00: 00 04-03 00:00 :00 No 500mg Q.25D Take 1 tablet (500 mg total) by mouth 4 (four) times daily for 10 days. [facility] divalproex (DEPAKOTE) 500 MG EC tablet 04-02 00:00: 00 04-03 00:00 :00 No 500mg Q.5D Take 1 tablet (500 mg total) by mouth 2 (two) times daily for 90 days. [facility] clonazePAM (KlonoPIN) 0.5 MG tablet 04-02 00:00: 00 04-03 00:00 :00 No .25mg Take 0.5 tablets (0.25 mg total) by mouth 2 (two) times daily as needed for Anxiety for up to 30 days. Max Daily Amount: 0.5 mg [facility] gabapentin (NEURONTIN) 300 MG capsule 04-02 00:00: 00 04-03 00:00 :00 No 300mg Q.[id number] 3D Take 1 capsule (300 mg total) by mouth 3 (three) times daily for 90 days. [facility] HYDROcodone -acetaminop hen (NORCO 10-325) 10-325 mg per tablet 04-02 00:00: 00 04-03 00:00 :00 No 1{tbl} Take 1 tablet by mouth every 6 (six) hours as needed for up to 10 days. Max Daily Amount: 4 tablets [facility] methocarbam oL (ROBAXIN) 500 MG tablet 04-02 00:00: 00 04-03 00:00 :00 No 500mg Q.25D Take 1 tablet (500 mg total) by mouth 4 (four) times daily for 10 days. [facility] divalproex (DEPAKOTE) 500 MG EC tablet 04-02 00:00: 00 04-03 00:00 :00 No 500mg Q.5D Take 1 tablet (500 mg total) by mouth 2 (two) times daily for 90 days. [facility] clonazePAM (KlonoPIN) 0.5 MG tablet 04-02 00:00: 00 04-03 00:00 :00 No .25mg Take 0.5 tablets (0.25 mg total) by mouth 2 (two) times daily as needed for Anxiety for up to 30 days. Max Daily Amount: 0.5 mg [facility] gabapentin (NEURONTIN) 300 MG capsule 04-02 00:00: 00 04-03 00:00 :00 No 300mg Q.[id number] 3D Take 1 capsule (300 mg total) by mouth 3 (three) times daily for 90 days. [facility] HYDROcodone -acetaminop hen (NORCO 10-325) 10-325 mg per tablet 04-02 00:00: 00 04-03 00:00 :00 No 1{tbl} Take 1 tablet by mouth every 6 (six) hours as needed for up to 10 days. Max Daily Amount: 4 tablets [facility] methocarbam oL (ROBAXIN) 500 MG tablet 04-02 00:00: 00 04-03 00:00 :00 No 500mg Q.25D Take 1 tablet (500 mg total) by mouth 4 (four) times daily for 10 days. [facility] divalproex (DEPAKOTE) 500 MG EC tablet 04-02 00:00: 00 04-03 00:00 :00 No 500mg Q.5D Take 1 tablet (500 mg total) by mouth 2 (two) times daily for 90 days. [facility] clonazePAM (KlonoPIN) 0.5 MG tablet 04-02 00:00: 00 04-03 00:00 :00 No .25mg Take 0.5 tablets (0.25 mg total) by mouth 2 (two) times daily as needed for Anxiety for up to 30 days. Max Daily Amount: 0.5 mg [facility] gabapentin (NEURONTIN) 300 MG capsule 04-02 00:00: 00 04-03 00:00 :00 No 300mg Q.[id number] 3D Take 1 capsule (300 mg total) by mouth 3 (three) times daily for 90 days. [facility] HYDROcodone -acetaminop hen (NORCO 10-325) 10-325 mg per tablet 04-02 00:00: 00 04-03 00:00 :00 No 1{tbl} Take 1 tablet by mouth every 6 (six) hours as needed for up to 10 days. Max Daily Amount: 4 tablets [facility] methocarbam oL (ROBAXIN) 500 MG tablet 04-02 00:00: 00 04-03 00:00 :00 No 500mg Q.25D Take 1 tablet (500 mg total) by mouth 4 (four) times daily for 10 days. [facility] divalproex (DEPAKOTE) 500 MG EC tablet 04-02 00:00: 00 04-03 00:00 :00 No 500mg Q.5D Take 1 tablet (500 mg total) by mouth 2 (two) times daily for 90 days. [facility] clonazePAM (KlonoPIN) 0.5 MG tablet 04-02 00:00: 00 04-03 00:00 :00 No .25mg Take 0.5 tablets (0.25 mg total) by mouth 2 (two) times daily as needed for Anxiety for up to 30 days. Max Daily Amount: 0.5 mg [facility] gabapentin (NEURONTIN) 300 MG capsule 04-02 00:00: 00 04-03 00:00 :00 No 300mg Q.[id number] 3D Take 1 capsule (300 mg total) by mouth 3 (three) times daily for 90 days. [facility] HYDROcodone -acetaminop hen (NORCO 10-325) 10-325 mg per tablet 04-02 00:00: 00 04-03 00:00 :00 No 1{tbl} Take 1 tablet by mouth every 6 (six) hours as needed for up to 10 days. Max Daily Amount: 4 tablets [facility] methocarbam oL (ROBAXIN) 500 MG tablet 04-02 00:00: 00 04-03 00:00 :00 No 500mg Q.25D Take 1 tablet (500 mg total) by mouth 4 (four) times daily for 10 days. [facility] divalproex (DEPAKOTE) 500 MG EC tablet 04-02 00:00: 00 04-03 00:00 :00 No 500mg Q.5D Take 1 tablet (500 mg total) by mouth 2 (two) times daily for 90 days. [facility] clonazePAM (KlonoPIN) 0.5 MG tablet 04-02 00:00: 00 04-03 00:00 :00 No .25mg Take 0.5 tablets (0.25 mg total) by mouth 2 (two) times daily as needed for Anxiety for up to 30 days. Max Daily Amount: 0.5 mg [facility] gabapentin (NEURONTIN) 300 MG capsule 04-02 00:00: 00 04-03 00:00 :00 No 300mg Q.[id number] 3D Take 1 capsule (300 mg total) by mouth 3 (three) times daily for 90 days. [facility] HYDROcodone -acetaminop hen (NORCO 10-325) 10-325 mg per tablet 04-02 00:00: 00 04-03 00:00 :00 No 1{tbl} Take 1 tablet by mouth every 6 (six) hours as needed for up to 10 days. Max Daily Amount: 4 tablets [facility] methocarbam oL (ROBAXIN) 500 MG tablet 04-02 00:00: 00 04-03 00:00 :00 No 500mg Q.25D Take 1 tablet (500 mg total) by mouth 4 (four) times daily for 10 days. [facility] divalproex (DEPAKOTE) 500 MG EC tablet 04-02 00:00: 00 04-03 00:00 :00 No 500mg Q.5D Take 1 tablet (500 mg total) by mouth 2 (two) times daily for 90 days. [facility] clonazePAM (KlonoPIN) 0.5 MG tablet 04-02 00:00: 00 04-03 00:00 :00 No .25mg Take 0.5 tablets (0.25 mg total) by mouth 2 (two) times daily as needed for Anxiety for up to 30 days. Max Daily Amount: 0.5 mg [facility] gabapentin (NEURONTIN) 300 MG capsule 04-02 00:00: 00 04-03 00:00 :00 No 300mg Q.[id number] 3D Take 1 capsule (300 mg total) by mouth 3 (three) times daily for 90 days. [facility] divalproex (DEPAKOTE) 500 MG EC tablet 04-02 00:00: 00 04-03 00:00 :00 No 500mg Q.5D Take 1 tablet (500 mg total) by mouth 2 (two) times daily for 90 days. [facility] clonazePAM (KlonoPIN) 0.5 MG tablet 04-02 00:00: 00 04-03 00:00 :00 No .25mg Take 0.5 tablets (0.25 mg total) by mouth 2 (two) times daily as needed for Anxiety for up to 30 days. Max Daily Amount: 0.5 mg [facility] gabapentin (NEURONTIN) 300 MG capsule 04-02 00:00: 00 04-03 00:00 :00 No 300mg Q.[id number] 3D Take 1 capsule (300 mg total) by mouth 3 (three) times daily for 90 days. [facility] HYDROcodone -acetaminop hen (NORCO 10-325) 10-325 mg per tablet 04-02 00:00: 00 04-03 00:00 :00 No 1{tbl} Take 1 tablet by mouth every 6 (six) hours as needed for up to 10 days. Max Daily Amount: 4 tablets [facility] HYDROcodone -acetaminop hen (NORCO 10-325) 10-325 mg per tablet 04-02 00:00: 00 04-03 00:00 :00 No 1{tbl} Take 1 tablet by mouth every 6 (six) hours as needed for up to 10 days. Max Daily Amount: 4 tablets [facility] methocarbam oL (ROBAXIN) 500 MG tablet 04-02 00:00: 00 04-03 00:00 :00 No 500mg Q.25D Take 1 tablet (500 mg total) by mouth 4 (four) times daily for 10 days. [facility] methocarbam oL (ROBAXIN) 500 MG tablet 04-02 00:00: 00 04-03 00:00 :00 No 500mg Q.25D Take 1 tablet (500 mg total) by mouth 4 (four) times daily for 10 days. [facility] divalproex (DEPAKOTE) 500 MG EC tablet 04-02 00:00: 00 04-03 00:00 :00 No 500mg Q.5D Take 1 tablet (500 mg total) by mouth 2 (two) times daily for 90 days. [facility] clonazePAM (KlonoPIN) 0.5 MG tablet 04-02 00:00: 00 04-03 00:00 :00 No .25mg Take 0.5 tablets (0.25 mg total) by mouth 2 (two) times daily as needed for Anxiety for up to 30 days. Max Daily Amount: 0.5 mg [facility] gabapentin (NEURONTIN) 300 MG capsule 04-02 00:00: 00 04-03 00:00 :00 No 300mg Q.[id number] 3D Take 1 capsule (300 mg total) by mouth 3 (three) times daily for 90 days. [facility] HYDROcodone -acetaminop hen (NORCO 10-325) 10-325 mg per tablet 04-02 00:00: 00 04-03 00:00 :00 No 1{tbl} Take 1 tablet by mouth every 6 (six) hours as needed for up to 10 days. Max Daily Amount: 4 tablets [facility] methocarbam oL (ROBAXIN) 500 MG tablet 04-02 00:00: 00 04-03 00:00 :00 No 500mg Q.25D Take 1 tablet (500 mg total) by mouth 4 (four) times daily for 10 days. [facility] divalproex (DEPAKOTE) 500 MG EC tablet 04-02 00:00: 00 04-03 00:00 :00 No 500mg Q.5D Take 1 tablet (500 mg total) by mouth 2 (two) times daily for 90 days. [facility] clonazePAM (KlonoPIN) 0.5 MG tablet 04-02 00:00: 00 04-03 00:00 :00 No .25mg Take 0.5 tablets (0.25 mg total) by mouth 2 (two) times daily as needed for Anxiety for up to 30 days. Max Daily Amount: 0.5 mg [facility] gabapentin (NEURONTIN) 300 MG capsule 04-02 00:00: 00 04-03 00:00 :00 No 300mg Q.[id number] 3D Take 1 capsule (300 mg total) by mouth 3 (three) times daily for 90 days. [facility] HYDROcodone -acetaminop hen (NORCO 10-325) 10-325 mg per tablet 04-02 00:00: 00 04-03 00:00 :00 No 1{tbl} Take 1 tablet by mouth every 6 (six) hours as needed for up to 10 days. Max Daily Amount: 4 tablets [facility] methocarbam oL (ROBAXIN) 500 MG tablet 04-02 00:00: 00 04-03 00:00 :00 No 500mg Q.25D Take 1 tablet (500 mg total) by mouth 4 (four) times daily for 10 days. [facility] divalproex (DEPAKOTE) 500 MG EC tablet 04-02 00:00: 00 04-03 00:00 :00 No 500mg Q.5D Take 1 tablet (500 mg total) by mouth 2 (two) times daily for 90 days. [facility] clonazePAM (KlonoPIN) 0.5 MG tablet 04-02 00:00: 00 04-03 00:00 :00 No .25mg Take 0.5 tablets (0.25 mg total) by mouth 2 (two) times daily as needed for Anxiety for up to 30 days. Max Daily Amount: 0.5 mg [facility] gabapentin (NEURONTIN) 300 MG capsule 04-02 00:00: 00 04-03 00:00 :00 No 300mg Q.[id number] 3D Take 1 capsule (300 mg total) by mouth 3 (three) times daily for 90 days. [facility] HYDROcodone -acetaminop hen (NORCO 10-325) 10-325 mg per tablet 04-02 00:00: 00 04-03 00:00 :00 No 1{tbl} Take 1 tablet by mouth every 6 (six) hours as needed for up to 10 days. Max Daily Amount: 4 tablets [facility] methocarbam oL (ROBAXIN) 500 MG tablet 04-02 00:00: 00 04-03 00:00 :00 No 500mg Q.25D Take 1 tablet (500 mg total) by mouth 4 (four) times daily for 10 days. [facility] divalproex (DEPAKOTE) 500 MG EC tablet 04-02 00:00: 00 04-03 00:00 :00 No 500mg Q.5D Take 1 tablet (500 mg total) by mouth 2 (two) times daily for 90 days. [facility] clonazePAM (KlonoPIN) 0.5 MG tablet 04-02 00:00: 00 04-03 00:00 :00 No .25mg Take 0.5 tablets (0.25 mg total) by mouth 2 (two) times daily as needed for Anxiety for up to 30 days. Max Daily Amount: 0.5 mg [facility] gabapentin (NEURONTIN) 300 MG capsule 04-02 00:00: 00 04-03 00:00 :00 No 300mg Q.[id number] 3D Take 1 capsule (300 mg total) by mouth 3 (three) times daily for 90 days. [facility] HYDROcodone -acetaminop hen (NORCO 10-325) 10-325 mg per tablet 04-02 00:00: 00 04-03 00:00 :00 No 1{tbl} Take 1 tablet by mouth every 6 (six) hours as needed for up to 10 days. Max Daily Amount: 4 tablets [facility] methocarbam oL (ROBAXIN) 500 MG tablet 04-02 00:00: 00 04-03 00:00 :00 No 500mg Q.25D Take 1 tablet (500 mg total) by mouth 4 (four) times daily for 10 days. [facility] divalproex (DEPAKOTE) 500 MG EC tablet 04-02 00:00: 00 04-03 00:00 :00 No 500mg Q.5D Take 1 tablet (500 mg total) by mouth 2 (two) times daily for 90 days. [facility] clonazePAM (KlonoPIN) 0.5 MG tablet 04-02 00:00: 00 04-03 00:00 :00 No .25mg Take 0.5 tablets (0.25 mg total) by mouth 2 (two) times daily as needed for Anxiety for up to 30 days. Max Daily Amount: 0.5 mg [facility] gabapentin (NEURONTIN) 300 MG capsule 04-02 00:00: 00 04-03 00:00 :00 No 300mg Q.[id number] 3D Take 1 capsule (300 mg total) by mouth 3 (three) times daily for 90 days. [facility] [facility] HYDROcodone -acetaminop hen (NORCO 10-325) 10-325 mg per tablet 04-02 00:00: 00 04-03 00:00 :00 No 1{tbl} Take 1 tablet by mouth every 6 (six) hours as needed for up to 10 days. Max Daily Amount: 4 tablets [facility] methocarbam oL (ROBAXIN) 500 MG tablet 04-02 00:00: 00 04-03 00:00 :00 No 500mg Q.25D Take 1 tablet (500 mg total) by mouth 4 (four) times daily for 10 days. [facility] divalproex (DEPAKOTE) 500 MG EC tablet 04-02 00:00: 00 04-03 00:00 :00 No 500mg Q.5D Take 1 tablet (500 mg total) by mouth 2 (two) times daily for 90 days. [facility] clonazePAM (KlonoPIN) 0.5 MG tablet 04-02 00:00: 00 04-03 00:00 :00 No .25mg Take 0.5 tablets (0.25 mg total) by mouth 2 (two) times daily as needed for Anxiety for up to 30 days. Max Daily Amount: 0.5 mg [facility] divalproex (DEPAKOTE) 500 MG EC tablet 04-02 00:00: 00 04-03 00:00 :00 No 500mg Q.5D Take 1 tablet (500 mg total) by mouth 2 (two) times daily for 90 days. [facility] clonazePAM (KlonoPIN) 0.5 MG tablet 04-02 00:00: 00 04-03 00:00 :00 No .25mg Take 0.5 tablets (0.25 mg total) by mouth 2 (two) times daily as needed for Anxiety for up to 30 days. Max Daily Amount: 0.5 mg [facility] gabapentin (NEURONTIN) 300 MG capsule 04-02 00:00: 00 04-03 00:00 :00 No 300mg Q.[id number] 3D Take 1 capsule (300 mg total) by mouth 3 (three) times daily for 90 days. [facility] HYDROcodone -acetaminop hen (NORCO 10-325) 10-325 mg per tablet 04-02 00:00: 00 04-03 00:00 :00 No 1{tbl} Take 1 tablet by mouth every 6 (six) hours as needed for up to 10 days. Max Daily Amount: 4 tablets [facility] methocarbam oL (ROBAXIN) 500 MG tablet 04-02 00:00: 00 04-03 00:00 :00 No 500mg Q.25D Take 1 tablet (500 mg total) by mouth 4 (four) times daily for 10 days. [facility] gabapentin (NEURONTIN) 300 MG capsule 04-02 00:00: 00 04-03 00:00 :00 No 300mg Q.[id number] 3D Take 1 capsule (300 mg total) by mouth 3 (three) times daily for 90 days. [facility] HYDROcodone -acetaminop hen (NORCO 10-325) 10-325 mg per tablet 04-02 00:00: 00 04-03 00:00 :00 No 1{tbl} Take 1 tablet by mouth every 6 (six) hours as needed for up to 10 days. Max Daily Amount: 4 tablets [facility] methocarbam oL (ROBAXIN) 500 MG tablet 04-02 00:00: 00 04-03 00:00 :00 No 500mg Q.25D Take 1 tablet (500 mg total) by mouth 4 (four) times daily for 10 days. [facility] divalproex (DEPAKOTE) 500 MG EC tablet 04-02 00:00: 00 04-03 00:00 :00 No 500mg Q.5D Take 1 tablet (500 mg total) by mouth 2 (two) times daily for 90 days. [facility] clonazePAM (KlonoPIN) 0.5 MG tablet 04-02 00:00: 00 04-03 00:00 :00 No .25mg Take 0.5 tablets (0.25 mg total) by mouth 2 (two) times daily as needed for Anxiety for up to 30 days. Max Daily Amount: 0.5 mg [facility] gabapentin (NEURONTIN) 300 MG capsule 04-02 00:00: 00 04-03 00:00 :00 No 300mg Q.[id number] 3D Take 1 capsule (300 mg total) by mouth 3 (three) times daily for 90 days. [facility] HYDROcodone -acetaminop hen (NORCO 10-325) 10-325 mg per tablet 04-02 00:00: 00 04-03 00:00 :00 No 1{tbl} Take 1 tablet by mouth every 6 (six) hours as needed for up to 10 days. Max Daily Amount: 4 tablets [facility] methocarbam oL (ROBAXIN) 500 MG tablet 04-02 00:00: 00 04-03 00:00 :00 No 500mg Q.25D Take 1 tablet (500 mg total) by mouth 4 (four) times daily for 10 days. [facility] divalproex (DEPAKOTE) 500 MG EC tablet 04-02 00:00: 00 04-03 00:00 :00 No 500mg Q.5D Take 1 tablet (500 mg total) by mouth 2 (two) times daily for 90 days. [facility] clonazePAM (KlonoPIN) 0.5 MG tablet 04-02 00:00: 00 04-03 00:00 :00 No .25mg Take 0.5 tablets (0.25 mg total) by mouth 2 (two) times daily as needed for Anxiety for up to 30 days. Max Daily Amount: 0.5 mg [facility] gabapentin (NEURONTIN) 300 MG capsule 04-02 00:00: 00 04-03 00:00 :00 No 300mg Q.[id number] 3D Take 1 capsule (300 mg total) by mouth 3 (three) times daily for 90 days. [facility] HYDROcodone -acetaminop hen (NORCO 10-325) 10-325 mg per tablet 04-02 00:00: 00 04-03 00:00 :00 No 1{tbl} Take 1 tablet by mouth every 6 (six) hours as needed for up to 10 days. Max Daily Amount: 4 tablets [facility] methocarbam oL (ROBAXIN) 500 MG tablet 04-02 00:00: 00 04-03 00:00 :00 No 500mg Q.25D Take 1 tablet (500 mg total) by mouth 4 (four) times daily for 10 days. [facility] divalproex (DEPAKOTE) 500 MG EC tablet 04-02 00:00: 00 04-03 00:00 :00 No 500mg Q.5D Take 1 tablet (500 mg total) by mouth 2 (two) times daily for 90 days. [facility] clonazePAM (KlonoPIN) 0.5 MG tablet 04-02 00:00: 00 04-03 00:00 :00 No .25mg Take 0.5 tablets (0.25 mg total) by mouth 2 (two) times daily as needed for Anxiety for up to 30 days. Max Daily Amount: 0.5 mg [facility] gabapentin (NEURONTIN) 300 MG capsule 04-02 00:00: 00 04-03 00:00 :00 No 300mg Q.[id number] 3D Take 1 capsule (300 mg total) by mouth 3 (three) times daily for 90 days. [facility] HYDROcodone -acetaminop hen (NORCO 10-325) 10-325 mg per tablet 04-02 00:00: 00 04-03 00:00 :00 No 1{tbl} Take 1 tablet by mouth every 6 (six) hours as needed for up to 10 days. Max Daily Amount: 4 tablets [facility] methocarbam oL (ROBAXIN) 500 MG tablet 04-02 00:00: 00 04-03 00:00 :00 No 500mg Q.25D Take 1 tablet (500 mg total) by mouth 4 (four) times daily for 10 days. [facility] divalproex (DEPAKOTE) 500 MG EC tablet 04-02 00:00: 00 04-03 00:00 :00 No 500mg Q.5D Take 1 tablet (500 mg total) by mouth 2 (two) times daily for 90 days. [facility] clonazePAM (KlonoPIN) 0.5 MG tablet 04-02 00:00: 00 04-03 00:00 :00 No .25mg Take 0.5 tablets (0.25 mg total) by mouth 2 (two) times daily as needed for Anxiety for up to 30 days. Max Daily Amount: 0.5 mg [facility] gabapentin (NEURONTIN) 300 MG capsule 04-02 00:00: 00 04-03 00:00 :00 No 300mg Q.[id number] 3D Take 1 capsule (300 mg total) by mouth 3 (three) times daily for 90 days. [facility] HYDROcodone -acetaminop hen (NORCO 10-325) 10-325 mg per tablet 04-02 00:00: 00 04-03 00:00 :00 No 1{tbl} Take 1 tablet by mouth every 6 (six) hours as needed for up to 10 days. Max Daily Amount: 4 tablets [facility] methocarbam oL (ROBAXIN) 500 MG tablet 04-02 00:00: 00 04-03 00:00 :00 No 500mg Q.25D Take 1 tablet (500 mg total) by mouth 4 (four) times daily for 10 days. [facility] divalproex (DEPAKOTE) 500 MG EC tablet 04-02 00:00: 00 04-03 00:00 :00 No 500mg Q.5D Take 1 tablet (500 mg total) by mouth 2 (two) times daily for 90 days. [facility] clonazePAM (KlonoPIN) 0.5 MG tablet 04-02 00:00: 00 04-03 00:00 :00 No .25mg Take 0.5 tablets (0.25 mg total) by mouth 2 (two) times daily as needed for Anxiety for up to 30 days. Max Daily Amount: 0.5 mg [facility] gabapentin (NEURONTIN) 300 MG capsule 04-02 00:00: 00 04-03 00:00 :00 No 300mg Q.[id number] 3D Take 1 capsule (300 mg total) by mouth 3 (three) times daily for 90 days. [facility] HYDROcodone -acetaminop hen (NORCO 10-325) 10-325 mg per tablet 04-02 00:00: 00 04-03 00:00 :00 No 1{tbl} Take 1 tablet by mouth every 6 (six) hours as needed for up to 10 days. Max Daily Amount: 4 tablets [facility] methocarbam oL (ROBAXIN) 500 MG tablet 04-02 00:00: 00 04-03 00:00 :00 No 500mg Q.25D Take 1 tablet (500 mg total) by mouth 4 (four) times daily for 10 days. [facility] divalproex (DEPAKOTE) 500 MG EC tablet 04-02 00:00: 00 04-03 00:00 :00 No 500mg Q.5D Take 1 tablet (500 mg total) by mouth 2 (two) times daily for 90 days. [facility] divalproex (DEPAKOTE) 500 MG EC tablet 04-02 00:00: 00 04-03 00:00 :00 No 500mg Q.5D Take 1 tablet (500 mg total) by mouth 2 (two) times daily for 90 days. [facility] clonazePAM (KlonoPIN) 0.5 MG tablet 04-02 00:00: 00 04-03 00:00 :00 No .25mg Take 0.5 tablets (0.25 mg total) by mouth 2 (two) times daily as needed for Anxiety for up to 30 days. Max Daily Amount: 0.5 mg [facility] clonazePAM (KlonoPIN) 0.5 MG tablet 04-02 00:00: 00 04-03 00:00 :00 No .25mg Take 0.5 tablets (0.25 mg total) by mouth 2 (two) times daily as needed for Anxiety for up to 30 days. Max Daily Amount: 0.5 mg [facility] gabapentin (NEURONTIN) 300 MG capsule 04-02 00:00: 00 04-03 00:00 :00 No 300mg Q.[id number] 3D Take 1 capsule (300 mg total) by mouth 3 (three) times daily for 90 days. [facility] HYDROcodone -acetaminop hen (NORCO 10-325) 10-325 mg per tablet 04-02 00:00: 00 04-03 00:00 :00 No 1{tbl} Take 1 tablet by mouth every 6 (six) hours as needed for up to 10 days. Max Daily Amount: 4 tablets [facility] methocarbam oL (ROBAXIN) 500 MG tablet 04-02 00:00: 00 04-03 00:00 :00 No 500mg Q.25D Take 1 tablet (500 mg total) by mouth 4 (four) times daily for 10 days. [facility] gabapentin (NEURONTIN) 300 MG capsule 04-02 00:00: 00 04-03 00:00 :00 No 300mg Q.[id number] 3D Take 1 capsule (300 mg total) by mouth 3 (three) times daily for 90 days. [facility] HYDROcodone -acetaminop hen (NORCO 10-325) 10-325 mg per tablet 04-02 00:00: 00 04-03 00:00 :00 No 1{tbl} Take 1 tablet by mouth every 6 (six) hours as needed for up to 10 days. Max Daily Amount: 4 tablets [facility] methocarbam oL (ROBAXIN) 500 MG tablet 04-02 00:00: 00 04-03 00:00 :00 No 500mg Q.25D Take 1 tablet (500 mg total) by mouth 4 (four) times daily for 10 days. [facility] divalproex (DEPAKOTE) 500 MG EC tablet 04-02 00:00: 00 04-03 00:00 :00 No 500mg Q.5D Take 1 tablet (500 mg total) by mouth 2 (two) times daily for 90 days. [facility] clonazePAM (KlonoPIN) 0.5 MG tablet 04-02 00:00: 00 04-03 00:00 :00 No .25mg Take 0.5 tablets (0.25 mg total) by mouth 2 (two) times daily as needed for Anxiety for up to 30 days. Max Daily Amount: 0.5 mg [facility] gabapentin (NEURONTIN) 300 MG capsule 04-02 00:00: 00 04-03 00:00 :00 No 300mg Q.[id number] 3D Take 1 capsule (300 mg total) by mouth 3 (three) times daily for 90 days. [facility] HYDROcodone -acetaminop hen (NORCO 10-325) 10-325 mg per tablet 04-02 00:00: 00 04-03 00:00 :00 No 1{tbl} Take 1 tablet by mouth every 6 (six) hours as needed for up to 10 days. Max Daily Amount: 4 tablets [facility] methocarbam oL (ROBAXIN) 500 MG tablet 04-02 00:00: 00 04-03 00:00 :00 No 500mg Q.25D Take 1 tablet (500 mg total) by mouth 4 (four) times daily for 10 days. [facility] divalproex (DEPAKOTE) 500 MG EC tablet 04-02 00:00: 00 04-03 00:00 :00 No 500mg Q.5D Take 1 tablet (500 mg total) by mouth 2 (two) times daily for 90 days. [facility] clonazePAM (KlonoPIN) 0.5 MG tablet 04-02 00:00: 00 04-03 00:00 :00 No .25mg Take 0.5 tablets (0.25 mg total) by mouth 2 (two) times daily as needed for Anxiety for up to 30 days. Max Daily Amount: 0.5 mg [facility] gabapentin (NEURONTIN) 300 MG capsule 04-02 00:00: 00 04-03 00:00 :00 No 300mg Q.[id number] 3D Take 1 capsule (300 mg total) by mouth 3 (three) times daily for 90 days. [facility] HYDROcodone -acetaminop hen (NORCO 10-325) 10-325 mg per tablet 04-02 00:00: 00 04-03 00:00 :00 No 1{tbl} Take 1 tablet by mouth every 6 (six) hours as needed for up to 10 days. Max Daily Amount: 4 tablets [facility] methocarbam oL (ROBAXIN) 500 MG tablet 04-02 00:00: 00 04-03 00:00 :00 No 500mg Q.25D Take 1 tablet (500 mg total) by mouth 4 (four) times daily for 10 days. [facility] divalproex (DEPAKOTE) 500 MG EC tablet 04-02 00:00: 00 04-03 00:00 :00 No 500mg Q.5D Take 1 tablet (500 mg total) by mouth 2 (two) times daily for 90 days. [facility] clonazePAM (KlonoPIN) 0.5 MG tablet 04-02 00:00: 00 04-03 00:00 :00 No .25mg Take 0.5 tablets (0.25 mg total) by mouth 2 (two) times daily as needed for Anxiety for up to 30 days. Max Daily Amount: 0.5 mg [facility] gabapentin (NEURONTIN) 300 MG capsule 04-02 00:00: 00 04-03 00:00 :00 No 300mg Q.[id number] 3D Take 1 capsule (300 mg total) by mouth 3 (three) times daily for 90 days. [facility] HYDROcodone -acetaminop hen (NORCO 10-325) 10-325 mg per tablet 04-02 00:00: 00 04-03 00:00 :00 No 1{tbl} Take 1 tablet by mouth every 6 (six) hours as needed for up to 10 days. Max Daily Amount: 4 tablets [facility] methocarbam oL (ROBAXIN) 500 MG tablet 04-02 00:00: 00 04-03 00:00 :00 No 500mg Q.25D Take 1 tablet (500 mg total) by mouth 4 (four) times daily for 10 days. [facility] divalproex (DEPAKOTE) 500 MG EC tablet 04-02 00:00: 00 04-03 00:00 :00 No 500mg Q.5D Take 1 tablet (500 mg total) by mouth 2 (two) times daily for 90 days. [facility] clonazePAM (KlonoPIN) 0.5 MG tablet 04-02 00:00: 00 04-03 00:00 :00 No .25mg Take 0.5 tablets (0.25 mg total) by mouth 2 (two) times daily as needed for Anxiety for up to 30 days. Max Daily Amount: 0.5 mg [facility] divalproex (DEPAKOTE) 500 MG EC tablet 04-02 00:00: 00 04-03 00:00 :00 No 500mg Q.5D Take 1 tablet (500 mg total) by mouth 2 (two) times daily for 90 days. [facility] clonazePAM (KlonoPIN) 0.5 MG tablet 04-02 00:00: 00 04-03 00:00 :00 No .25mg Take 0.5 tablets (0.25 mg total) by mouth 2 (two) times daily as needed for Anxiety for up to 30 days. Max Daily Amount: 0.5 mg [facility] gabapentin (NEURONTIN) 300 MG capsule 04-02 00:00: 00 04-03 00:00 :00 No 300mg Q.[id number] 3D Take 1 capsule (300 mg total) by mouth 3 (three) times daily for 90 days. [facility] HYDROcodone -acetaminop hen (NORCO 10-325) 10-325 mg per tablet 04-02 00:00: 00 04-03 00:00 :00 No 1{tbl} Take 1 tablet by mouth every 6 (six) hours as needed for up to 10 days. Max Daily Amount: 4 tablets [facility] methocarbam oL (ROBAXIN) 500 MG tablet 04-02 00:00: 00 04-03 00:00 :00 No 500mg Q.25D Take 1 tablet (500 mg total) by mouth 4 (four) times daily for 10 days. [facility] gabapentin (NEURONTIN) 300 MG capsule 04-02 00:00: 00 04-03 00:00 :00 No 300mg Q.[id number] 3D Take 1 capsule (300 mg total) by mouth 3 (three) times daily for 90 days. [facility] HYDROcodone -acetaminop hen (NORCO 10-325) 10-325 mg per tablet 04-02 00:00: 00 04-03 00:00 :00 No 1{tbl} Take 1 tablet by mouth every 6 (six) hours as needed for up to 10 days. Max Daily Amount: 4 tablets [facility] methocarbam oL (ROBAXIN) 500 MG tablet 04-02 00:00: 00 04-03 00:00 :00 No 500mg Q.25D Take 1 tablet (500 mg total) by mouth 4 (four) times daily for 10 days. [facility] divalproex (DEPAKOTE) 500 MG EC tablet 04-02 00:00: 00 04-03 00:00 :00 No 500mg Q.5D Take 1 tablet (500 mg total) by mouth 2 (two) times daily for 90 days. [facility] clonazePAM (KlonoPIN) 0.5 MG tablet 04-02 00:00: 00 04-03 00:00 :00 No .25mg Take 0.5 tablets (0.25 mg total) by mouth 2 (two) times daily as needed for Anxiety for up to 30 days. Max Daily Amount: 0.5 mg [facility] gabapentin (NEURONTIN) 300 MG capsule 04-02 00:00: 00 04-03 00:00 :00 No 300mg Q.[id number] 3D Take 1 capsule (300 mg total) by mouth 3 (three) times daily for 90 days. [facility] HYDROcodone -acetaminop hen (NORCO 10-325) 10-325 mg per tablet 04-02 00:00: 00 04-03 00:00 :00 No 1{tbl} Take 1 tablet by mouth every 6 (six) hours as needed for up to 10 days. Max Daily Amount: 4 tablets [facility] methocarbam oL (ROBAXIN) 500 MG tablet 04-02 00:00: 00 04-03 00:00 :00 No 500mg Q.25D Take 1 tablet (500 mg total) by mouth 4 (four) times daily for 10 days. [facility] divalproex (DEPAKOTE) 500 MG EC tablet 04-02 00:00: 00 04-03 00:00 :00 No 500mg Q.5D Take 1 tablet (500 mg total) by mouth 2 (two) times daily for 90 days. [facility] clonazePAM (KlonoPIN) 0.5 MG tablet 04-02 00:00: 00 04-03 00:00 :00 No .25mg Take 0.5 tablets (0.25 mg total) by mouth 2 (two) times daily as needed for Anxiety for up to 30 days. Max Daily Amount: 0.5 mg [facility] gabapentin (NEURONTIN) 300 MG capsule 04-02 00:00: 00 04-03 00:00 :00 No 300mg Q.[id number] 3D Take 1 capsule (300 mg total) by mouth 3 (three) times daily for 90 days. [facility] HYDROcodone -acetaminop hen (NORCO 10-325) 10-325 mg per tablet 04-02 00:00: 00 04-03 00:00 :00 No 1{tbl} Take 1 tablet by mouth every 6 (six) hours as needed for up to 10 days. Max Daily Amount: 4 tablets [facility] methocarbam oL (ROBAXIN) 500 MG tablet 04-02 00:00: 00 04-03 00:00 :00 No 500mg Q.25D Take 1 tablet (500 mg total) by mouth 4 (four) times daily for 10 days. [facility] divalproex (DEPAKOTE) 500 MG EC tablet 04-02 00:00: 00 04-03 00:00 :00 No 500mg Q.5D Take 1 tablet (500 mg total) by mouth 2 (two) times daily for 90 days. [facility] clonazePAM (KlonoPIN) 0.5 MG tablet 04-02 00:00: 00 04-03 00:00 :00 No .25mg Take 0.5 tablets (0.25 mg total) by mouth 2 (two) times daily as needed for Anxiety for up to 30 days. Max Daily Amount: 0.5 mg [facility] gabapentin (NEURONTIN) 300 MG capsule 04-02 00:00: 00 04-03 00:00 :00 No 300mg Q.[id number] 3D Take 1 capsule (300 mg total) by mouth 3 (three) times daily for 90 days. [facility] HYDROcodone -acetaminop hen (NORCO 10-325) 10-325 mg per tablet 04-02 00:00: 00 04-03 00:00 :00 No 1{tbl} Take 1 tablet by mouth every 6 (six) hours as needed for up to 10 days. Max Daily Amount: 4 tablets [facility] methocarbam oL (ROBAXIN) 500 MG tablet 04-02 00:00: 00 04-03 00:00 :00 No 500mg Q.25D Take 1 tablet (500 mg total) by mouth 4 (four) times daily for 10 days. [facility] divalproex (DEPAKOTE) 500 MG EC tablet 04-02 00:00: 00 04-03 00:00 :00 No 500mg Q.5D Take 1 tablet (500 mg total) by mouth 2 (two) times daily for 90 days. [facility] clonazePAM (KlonoPIN) 0.5 MG tablet 04-02 00:00: 00 04-03 00:00 :00 No .25mg Take 0.5 tablets (0.25 mg total) by mouth 2 (two) times daily as needed for Anxiety for up to 30 days. Max Daily Amount: 0.5 mg [facility] gabapentin (NEURONTIN) 300 MG capsule 04-02 00:00: 00 04-03 00:00 :00 No 300mg Q.[id number] 3D Take 1 capsule (300 mg total) by mouth 3 (three) times daily for 90 days. [facility] HYDROcodone -acetaminop hen (NORCO 10-325) 10-325 mg per tablet 04-02 00:00: 00 04-03 00:00 :00 No 1{tbl} Take 1 tablet by mouth every 6 (six) hours as needed for up to 10 days. Max Daily Amount: 4 tablets [facility] methocarbam oL (ROBAXIN) 500 MG tablet 04-02 00:00: 00 04-03 00:00 :00 No 500mg Q.25D Take 1 tablet (500 mg total) by mouth 4 (four) times daily for 10 days. [facility] divalproex (DEPAKOTE) 500 MG EC tablet 04-02 00:00: 00 04-03 00:00 :00 No 500mg Q.5D Take 1 tablet (500 mg total) by mouth 2 (two) times daily for 90 days. [facility] clonazePAM (KlonoPIN) 0.5 MG tablet 04-02 00:00: 00 04-03 00:00 :00 No .25mg Take 0.5 tablets (0.25 mg total) by mouth 2 (two) times daily as needed for Anxiety for up to 30 days. Max Daily Amount: 0.5 mg [facility] gabapentin (NEURONTIN) 300 MG capsule 04-02 00:00: 00 04-03 00:00 :00 No 300mg Q.[id number] 3D Take 1 capsule (300 mg total) by mouth 3 (three) times daily for 90 days. [facility] HYDROcodone -acetaminop hen (NORCO 10-325) 10-325 mg per tablet 04-02 00:00: 00 04-03 00:00 :00 No 1{tbl} Take 1 tablet by mouth every 6 (six) hours as needed for up to 10 days. Max Daily Amount: 4 tablets [facility] methocarbam oL (ROBAXIN) 500 MG tablet 04-02 00:00: 00 04-03 00:00 :00 No 500mg Q.25D Take 1 tablet (500 mg total) by mouth 4 (four) times daily for 10 days. [facility] divalproex (DEPAKOTE) 500 MG EC tablet 04-02 00:00: 00 04-03 00:00 :00 No 500mg Q.5D Take 1 tablet (500 mg total) by mouth 2 (two) times daily for 90 days. [facility] clonazePAM (KlonoPIN) 0.5 MG tablet 04-02 00:00: 00 04-03 00:00 :00 No .25mg Take 0.5 tablets (0.25 mg total) by mouth 2 (two) times daily as needed for Anxiety for up to 30 days. Max Daily Amount: 0.5 mg [facility] gabapentin (NEURONTIN) 300 MG capsule 04-02 00:00: 00 04-03 00:00 :00 No 300mg Q.[id number] 3D Take 1 capsule (300 mg total) by mouth 3 (three) times daily for 90 days. [facility] HYDROcodone -acetaminop hen (NORCO 10-325) 10-325 mg per tablet 04-02 00:00: 00 04-03 00:00 :00 No 1{tbl} Take 1 tablet by mouth every 6 (six) hours as needed for up to 10 days. Max Daily Amount: 4 tablets [facility] methocarbam oL (ROBAXIN) 500 MG tablet 04-02 00:00: 00 04-03 00:00 :00 No 500mg Q.25D Take 1 tablet (500 mg total) by mouth 4 (four) times daily for 10 days. [facility] divalproex (DEPAKOTE) 500 MG EC tablet 04-02 00:00: 00 04-03 00:00 :00 No 500mg Q.5D Take 1 tablet (500 mg total) by mouth 2 (two) times daily for 90 days. [facility] clonazePAM (KlonoPIN) 0.5 MG tablet 04-02 00:00: 00 04-03 00:00 :00 No .25mg Take 0.5 tablets (0.25 mg total) by mouth 2 (two) times daily as needed for Anxiety for up to 30 days. Max Daily Amount: 0.5 mg [facility] gabapentin (NEURONTIN) 300 MG capsule 04-02 00:00: 00 04-03 00:00 :00 No 300mg Q.[id number] 3D Take 1 capsule (300 mg total) by mouth 3 (three) times daily for 90 days. [facility] HYDROcodone -acetaminop hen (NORCO 10-325) 10-325 mg per tablet 04-02 00:00: 00 04-03 00:00 :00 No 1{tbl} Take 1 tablet by mouth every 6 (six) hours as needed for up to 10 days. Max Daily Amount: 4 tablets [facility] methocarbam oL (ROBAXIN) 500 MG tablet 04-02 00:00: 00 04-03 00:00 :00 No 500mg Q.25D Take 1 tablet (500 mg total) by mouth 4 (four) times daily for 10 days. [facility] divalproex (DEPAKOTE) 500 MG EC tablet 04-02 00:00: 00 04-03 00:00 :00 No 500mg Q.5D Take 1 tablet (500 mg total) by mouth 2 (two) times daily for 90 days. [facility] clonazePAM (KlonoPIN) 0.5 MG tablet 04-02 00:00: 00 04-03 00:00 :00 No .25mg Take 0.5 tablets (0.25 mg total) by mouth 2 (two) times daily as needed for Anxiety for up to 30 days. Max Daily Amount: 0.5 mg [facility] gabapentin (NEURONTIN) 300 MG capsule 04-02 00:00: 00 04-03 00:00 :00 No 300mg Q.[id number] 3D Take 1 capsule (300 mg total) by mouth 3 (three) times daily for 90 days. [facility] HYDROcodone -acetaminop hen (NORCO 10-325) 10-325 mg per tablet 04-02 00:00: 00 04-03 00:00 :00 No 1{tbl} Take 1 tablet by mouth every 6 (six) hours as needed for up to 10 days. Max Daily Amount: 4 tablets [facility] methocarbam oL (ROBAXIN) 500 MG tablet 04-02 00:00: 00 04-03 00:00 :00 No 500mg Q.25D Take 1 tablet (500 mg total) by mouth 4 (four) times daily for 10 days. [facility] divalproex (DEPAKOTE) 500 MG EC tablet 04-02 00:00: 00 04-03 00:00 :00 No 500mg Q.5D Take 1 tablet (500 mg total) by mouth 2 (two) times daily for 90 days. [facility] clonazePAM (KlonoPIN) 0.5 MG tablet 04-02 00:00: 00 04-03 00:00 :00 No .25mg Take 0.5 tablets (0.25 mg total) by mouth 2 (two) times daily as needed for Anxiety for up to 30 days. Max Daily Amount: 0.5 mg [facility] gabapentin (NEURONTIN) 300 MG capsule 04-02 00:00: 00 04-03 00:00 :00 No 300mg Q.[id number] 3D Take 1 capsule (300 mg total) by mouth 3 (three) times daily for 90 days. [facility] HYDROcodone -acetaminop hen (NORCO 10-325) 10-325 mg per tablet 04-02 00:00: 00 04-03 00:00 :00 No 1{tbl} Take 1 tablet by mouth every 6 (six) hours as needed for up to 10 days. Max Daily Amount: 4 tablets [facility] methocarbam oL (ROBAXIN) 500 MG tablet 04-02 00:00: 00 04-03 00:00 :00 No 500mg Q.25D Take 1 tablet (500 mg total) by mouth 4 (four) times daily for 10 days. [facility] divalproex (DEPAKOTE) 500 MG EC tablet 04-02 00:00: 00 04-03 00:00 :00 No 500mg Q.5D Take 1 tablet (500 mg total) by mouth 2 (two) times daily for 90 days. [facility] clonazePAM (KlonoPIN) 0.5 MG tablet 04-02 00:00: 00 04-03 00:00 :00 No .25mg Take 0.5 tablets (0.25 mg total) by mouth 2 (two) times daily as needed for Anxiety for up to 30 days. Max Daily Amount: 0.5 mg [facility] gabapentin (NEURONTIN) 300 MG capsule 04-02 00:00: 00 04-03 00:00 :00 No 300mg Q.[id number] 3D Take 1 capsule (300 mg total) by mouth 3 (three) times daily for 90 days. [facility] HYDROcodone -acetaminop hen (NORCO 10-325) 10-325 mg per tablet 04-02 00:00: 00 04-03 00:00 :00 No 1{tbl} Take 1 tablet by mouth every 6 (six) hours as needed for up to 10 days. Max Daily Amount: 4 tablets [facility] methocarbam oL (ROBAXIN) 500 MG tablet 04-02 00:00: 00 04-03 00:00 :00 No 500mg Q.25D Take 1 tablet (500 mg total) by mouth 4 (four) times daily for 10 days. [facility] divalproex (DEPAKOTE) 500 MG EC tablet 04-02 00:00: 00 04-03 00:00 :00 No 500mg Q.5D Take 1 tablet (500 mg total) by mouth 2 (two) times daily for 90 days. [facility] clonazePAM (KlonoPIN) 0.5 MG tablet 04-02 00:00: 00 04-03 00:00 :00 No .25mg Take 0.5 tablets (0.25 mg total) by mouth 2 (two) times daily as needed for Anxiety for up to 30 days. Max Daily Amount: 0.5 mg [facility] gabapentin (NEURONTIN) 300 MG capsule 04-02 00:00: 00 04-03 00:00 :00 No 300mg Q.[id number] 3D Take 1 capsule (300 mg total) by mouth 3 (three) times daily for 90 days. [facility] HYDROcodone -acetaminop hen (NORCO 10-325) 10-325 mg per tablet 04-02 00:00: 00 04-03 00:00 :00 No 1{tbl} Take 1 tablet by mouth every 6 (six) hours as needed for up to 10 days. Max Daily Amount: 4 tablets [facility] methocarbam oL (ROBAXIN) 500 MG tablet 04-02 00:00: 00 04-03 00:00 :00 No 500mg Q.25D Take 1 tablet (500 mg total) by mouth 4 (four) times daily for 10 days. [facility] divalproex (DEPAKOTE) 500 MG EC tablet 04-02 00:00: 00 04-03 00:00 :00 No 500mg Q.5D Take 1 tablet (500 mg total) by mouth 2 (two) times daily for 90 days. [facility] clonazePAM (KlonoPIN) 0.5 MG tablet 04-02 00:00: 00 04-03 00:00 :00 No .25mg Take 0.5 tablets (0.25 mg total) by mouth 2 (two) times daily as needed for Anxiety for up to 30 days. Max Daily Amount: 0.5 mg [facility] gabapentin (NEURONTIN) 300 MG capsule 04-02 00:00: 00 04-03 00:00 :00 No 300mg Q.[id number] 3D Take 1 capsule (300 mg total) by mouth 3 (three) times daily for 90 days. [facility] HYDROcodone -acetaminop hen (NORCO 10-325) 10-325 mg per tablet 04-02 00:00: 00 04-03 00:00 :00 No 1{tbl} Take 1 tablet by mouth every 6 (six) hours as needed for up to 10 days. Max Daily Amount: 4 tablets [facility] methocarbam oL (ROBAXIN) 500 MG tablet 04-02 00:00: 00 04-03 00:00 :00 No 500mg Q.25D Take 1 tablet (500 mg total) by mouth 4 (four) times daily for 10 days. [facility] divalproex (DEPAKOTE) 500 MG EC tablet 04-02 00:00: 00 04-03 00:00 :00 No 500mg Q.5D Take 1 tablet (500 mg total) by mouth 2 (two) times daily for 90 days. [facility] clonazePAM (KlonoPIN) 0.5 MG tablet 04-02 00:00: 00 04-03 00:00 :00 No .25mg Take 0.5 tablets (0.25 mg total) by mouth 2 (two) times daily as needed for Anxiety for up to 30 days. Max Daily Amount: 0.5 mg [facility] gabapentin (NEURONTIN) 300 MG capsule 04-02 00:00: 00 04-03 00:00 :00 No 300mg Q.[id number] 3D Take 1 capsule (300 mg total) by mouth 3 (three) times daily for 90 days. [facility] HYDROcodone -acetaminop hen (NORCO 10-325) 10-325 mg per tablet 04-02 00:00: 00 04-03 00:00 :00 No 1{tbl} Take 1 tablet by mouth every 6 (six) hours as needed for up to 10 days. Max Daily Amount: 4 tablets [facility] methocarbam oL (ROBAXIN) 500 MG tablet 04-02 00:00: 00 04-03 00:00 :00 No 500mg Q.25D Take 1 tablet (500 mg total) by mouth 4 (four) times daily for 10 days. [facility] divalproex (DEPAKOTE) 500 MG EC tablet 04-02 00:00: 00 04-03 00:00 :00 No 500mg Q.5D Take 1 tablet (500 mg total) by mouth 2 (two) times daily for 90 days. [facility] clonazePAM (KlonoPIN) 0.5 MG tablet 04-02 00:00: 00 04-03 00:00 :00 No .25mg Take 0.5 tablets (0.25 mg total) by mouth 2 (two) times daily as needed for Anxiety for up to 30 days. Max Daily Amount: 0.5 mg [facility] divalproex (DEPAKOTE) 500 MG EC tablet 04-02 00:00: 00 04-03 00:00 :00 No 500mg Q.5D Take 1 tablet (500 mg total) by mouth 2 (two) times daily for 90 days. [facility] clonazePAM (KlonoPIN) 0.5 MG tablet 04-02 00:00: 00 04-03 00:00 :00 No .25mg Take 0.5 tablets (0.25 mg total) by mouth 2 (two) times daily as needed for Anxiety for up to 30 days. Max Daily Amount: 0.5 mg [facility] gabapentin (NEURONTIN) 300 MG capsule 04-02 00:00: 00 04-03 00:00 :00 No 300mg Q.[id number] 3D Take 1 capsule (300 mg total) by mouth 3 (three) times daily for 90 days. [facility] HYDROcodone -acetaminop hen (NORCO 10-325) 10-325 mg per tablet 04-02 00:00: 00 04-03 00:00 :00 No 1{tbl} Take 1 tablet by mouth every 6 (six) hours as needed for up to 10 days. Max Daily Amount: 4 tablets [facility] methocarbam oL (ROBAXIN) 500 MG tablet 04-02 00:00: 00 04-03 00:00 :00 No 500mg Q.25D Take 1 tablet (500 mg total) by mouth 4 (four) times daily for 10 days. [facility] Metronidazo le 500 MG oral Tablet 7- 00:00: 00 Yes Cynthia Garcia - Nadir gonzalez Clonazepam 1 MG oral Tablet 6-30 [...] 1 dose, On Arpita 12/11/22 at 1315, [facility] iopamidol (ISOVUE 370-500 mL) injection 80 mL 12-11 16:30: 00 12-11 16:27 :00 No [id number] 80mL 80 mL, Intravenou s, ONCE, 1 dose, On Arpita 12/11/22 at 1130, Routine [facility] nitroglycer in (NITROL) 2 % ointment 0.5 Inch 12-11 15:30: 00 12-11 14:31 :00 No .5[in_u s] 0.5 Inch, Transderma l (Apply To Skin), ONCE, 1 dose, On Arpita 12/11/22 at 1030, [facility] aspirin chewable tablet 324 mg 12-11 15:30: 00 12-11 14:30 :00 No 324mg 324 mg, Oral, ONCE, 1 dose, On Thu12/11/22 at 1030, Routine [facility] ondansetron (ZOFRAN (PF)) injection 4 mg 12-11 15:30: 00 12-11 14:29 :00 No 4mg 4 mg, Slow IV Push, ONCE, 1 dose, [facility] Thu12/11/22 at 1030[facility]IVAN[facility] 1 mg 12-11 15:00: 00 12-11 14:57 :00 No 1mg 1 mg, Slow IV Push, ONCE, 1 dose, On Thu12/11/22 at 1000, STAT [facility] Lacosamide (VIMPAT) 100 mg tablet 12-11 00:00: 00 Yes [id number] 100mg Take 1 tablet by mouth in the morning and 1 tablet in the evening. [facility] Lacosamide (VIMPAT) 100 mg tablet 12-11 00:00: 00 Yes [id number] 100mg Take 1 tablet by mouth in the morning and 1 tablet in the evening. [facility] acetaminoph en-codeine (TYLENOL #3) 300-30 mg tablet 1 tablet 11-18 05:30: 00 11-18 05:30 :00 No 1{tbl} 1 tablet, Oral, ONCE, 1 dose, On Thu11/18/22 at 0030, [facility] methocarbam oL (ROBAXIN) tablet 1,000 mg 11-18 05:30: 00 11-18 05:30 :00 No 1000mg 1,000 mg, Oral, ONCE, 1 dose, On Thu11/18/22 at 0030, [facility] ondansetron (ZOFRAN (PF)) injection 4 mg 11-18 04:45: 00 11-18 03:38 :00 No 4mg 4 mg, Slow IV Push, ONCE, 1 dose, On Thu11/17/22 at 2345, MICHAEL [facility] morpHINE (4 mg/mL) injection [...] 500 mg tablet 11-18 00:00: 00 Yes [id number] 1000mg Take 2 tablets by mouth 4 (four) times daily as needed for Pain (scale 7-10). [facility] methocarbam oL 500 mg tablet 11-18 00:00: 00 Yes [id number] 1000mg Take 2 tablets by mouth 4 (four) times daily as needed for Pain (scale 7-10). [facility] methocarbam oL 500 mg tablet 11-18 00:00: 00 Yes [id number] 1000mg Take 2 tablets by mouth 4 [...] 1 dose, On Thu11/17/22 at 1845, Routine [facility] ondansetron (ZOFRAN (PF)) injection 4 mg 11-17 23:15: 00 11-17 23:06 :00 No 4mg 4 mg, Slow IV Push, ONCE, 1 dose, On Thu11/17/22 at 1815, MICHAEL [facility] lisinopriL (PRINIVIL,Z ESTRIL) tablet 10 mg 08-02 15:00: 00 Yes 10mg 10 mg, Oral, DAILY, First dose on Thu08/02/22 at 0900, Until Discontinu ed, Routine [facility] predniSONE (DELTASONE) tablet 40 mg 08-02 15:00: 00 08-07 14:59 :00 No 40mg 40 mg, Oral, DAILY, 5 doses, First dose on Thu08/02/22 at 0900, Last dose on Thu08/06/22 at 0900, Routine [facility] morpHINE (2 mg/mL) injection 2 mg [...] 1g Take 1 g by mouth daily. [facility]CLARITIN LIQUI-GEL) 10 [...] Thu08/01/22 at 1200, Until Discontinu ed, Routine [facility] ipratropium -albuteroL (DUONEB) 0.5 mg-3 mg(2.5 mg base)/3 mL nebulizer solution 3 mL 08-01 17:07: 07 Yes 3mL 3 mL, Inhalation , QIDPRN, Starting on Thu08/01/22 at 1107, Until Discontinu ed, MICHAEL, Wheezing, Shortness of Breath [facility] sulfur hexafluorid e microsphr (LUMASON) injection 5 mL 08-01 17:00: 00 08-01 17:00 :00 No [id number] 5mL 5 mL, Intravenou s, ONCE, 1 dose, On Thu08/01/22 at 1100, Routine
retail team member approving Restricted medication : KYLEE [...] at 0900, Until Discontinu ed, [facility] amLOD[facility] (NORVASC) tablet 10 mg 08-01 15:00: 00 Yes 10mg 10 mg, Oral, DAILY, First dose on Thu08/01/22 at 0900, Until Discontinu ed, Routine [facility] levETIRAcet am (KEPPRA) tablet 500 mg 08-01 14:00: 00 08-01 23:56 :35 No 500mg 500 mg, Oral, BID, First dose on Thu08/01/22 at 0800, Until Discontinu ed, Routine [facility] carvediloL (COREG) tablet 6.25 mg 08-01 14:00: 00 08-01 17:29 :13 No 6.25mg 6.25 mg, Oral, BID MEALS, First dose on Thu08/01/22 at 0800, Until Discontinu ed, Routine [facility] levETIRAcet am (KEPPRA) in NACL (ISO-OS) 1,000 mg/100 mL RTU 08-01 06:45: 00 08-01 06:32 :00 No 1000mg 1,000 mg, IV Piggyback, ONCE, 1 dose, On Thu08/01/22 at 0045, Administer over 15 Minutes, 100 mL [facility] LORazepam (ATIVAN) injection 1 mg 08-01 05:52: 54 Yes 1mg 1 mg, Slow IV Push, Q4HPRN, Starting on Thu07/31/22 at 2352, Until Discontinu ed, Routine, Seizures, Agitation, Anxiety, ETOH / Cocaine Withdrawl [facility] foLIC acid (FOLATE) tablet 1 mg 08-01 05:45: 00 Yes 1mg 1 mg, Oral, DAILY, First dose on Thu07/31/22 at 2345, Until Discontinu ed, [facility] thiamine (VITAMIN B1) tablet 100 mg 08-01 05:45: 00 Yes 100mg 100 mg, Oral, DAILY, First dose on Thu07/31/22 at 2345, Until Discontinu ed, Routine [facility] LORazepam (ATIVAN) injection 0.5 mg 08-01 05:30: 00 08-01 05:29 :00 No .5mg 0.5 mg, Slow IV Push, ONCE, 1 dose, On Thu07/31/22 at 2330, MICHAEL [facility] atorvastati n (LIPITOR) tablet 40 mg 08-01 03:00: 00 Yes 40mg 40 mg, Oral, QHS, First dose on Thu07/31/22 at 2100, Until Discontinu ed, Routine [facility] diphenhydrA MINE (BENADRYL) tablet 25 mg 08-01 00:32: 02 Yes 25mg 25 mg, Oral, Q6HPRN, Starting on Thu07/31/22 at 1832, Until Discontinu ed, Routine, Itching [facility] enoxaparin (LOVENOX) injection 40 mg 07-31 23:00: 00 Yes 40mg 40 mg, Subcutaneo us, DAILY, First dose on Thu07/31/22 at 1700, Until Discontinu ed, Routine [facility] morpHINE (2 mg/mL) injection 2 mg 07-31 23:00: 00 07-31 22:29 :00 No 2mg 2 mg, Slow IV Push, ONCE, 1 dose, On Thu07/31/22 at 1700, Routine [facility] HYDROcodone -acetaminop hen (NORCO) 10-325 mg tablet 1 tablet 07-31 22:01: 36 Yes 1{tbl} 1 tablet, Oral, Q6HPRN, Starting on Thu07/31/22 at 1601, Until Discontinu ed, Routine, Pain (scale 7-10) [facility] HYDROcodone -acetaminop hen (NORCO 5) 5-325 [...] On Arpita 07/31/22 at 1545, Routine [facility] ondansetron (ZOFRAN (PF)) injection 4 mg 07-31 21:00: 00 07-31 20:47 :00 No 4mg 4 mg, Slow IV Push, ONCE, 1 dose, On Arpita 07/31/22 at 1500, MICHAEL [facility] furosemide (LASIX) injection 40 mg 07-31 20:15: 00 Yes 40mg 40 mg, Slow IV Push, Q12H, First dose on Arpita 07/31/22 at 1415, Until Discontinu ed, Routine [facility] methylpredn isolone sod succ (SOLU-MEDRO L) injection 125 mg 07-31 19:30: 00 07-31 18:54 :00 No 125mg 125 mg, Slow IV Push, ONCE NOW, 1 dose, On Arpita 07/31/22 at 1330[facility] ipratrop[facility] -albut[facility]L (DUONEB) 0.5 mg-3 [...] 2021-07 00:00: 00 05-12 04:59 :00 No [id number] 4mg Take 1 tablet through enteral tube in the morning for 1 dose. [facility] Methylpredn isolone 4 mg tablet 2021-07 00:00: 00 05-11 04:59 :00 No [id number] 4mg Take 1 tablet through enteral tube [...] at 0900, Until Discontinu ed, Routine [facility] divalproex (DEPAKOTE) EC tablet 1,000 mg 2021-07 13:00: 00 Yes 1000mg 1,000 mg, Oral, BID, First dose (after last modificati on) on Thu05/08/22 at 0800, Until Discontinu ed, Routine [facility] Methylpredn isolone (MEDROL) tablet 4 mg 2021-07 08:50: 10 05-09 08:59 :00 No 4mg 4 mg, Oral, Q8H TAPER, 3 doses, First dose on Thu05/08/22 at 0400, Last dose on Thu05/08/22 at 2000, Routine [facility] acetaminoph en-codeine (TYLENOL #3) 300-30 mg [...] Hospital cyclobenzap rine 5 mg tablet 2021-07 0 00:00: 00 Yes [id number] 5mg Take 1 tablet by mouth in the morning and 1 tablet at noon and 1 tablet in the evening. [facility] cyclobenzap rine 5 mg tablet 2021-07 0 00:00: 00 Yes [id number] 5mg Take 1 tablet by mouth in the morning and 1 tablet at noon and 1 tablet in the evening. [facility] cyclobenzap rine 5 mg tablet 2021-07 0 00:00: 00 Yes [id number] 5mg Take 1 tablet by mouth in the morning and 1 tablet at noon and 1 tablet in the evening. [facility] cyclobenzap rine 5 mg tablet 2021-07 0 00:00: 00 Yes [id number] 5mg Take 1 tablet by mouth in the morning and 1 tablet at noon and 1 tablet in the evening. [facility] cyclobenzap rine 5 mg tablet 2021-07 0 00:00: 00 Yes [id number] 5mg Take 1 tablet by mouth in the morning and 1 tablet at noon and 1 tablet in the evening. [facility] cyclobenzap rine 5 mg tablet 2021-07 0 00:00: 00 Yes [id number] 5mg Take 1 tablet by mouth in the morning and 1 tablet at noon and 1 tablet in the evening. [facility] cyclobenzap rine 5 mg tablet 2021-07 0 00:00: 00 Yes [id number] 5mg Take 1 tablet by mouth in the morning and 1 tablet at noon and 1 tablet in the evening. [facility] cyclobenzap rine 5 mg tablet 2021-07 0 00:00: 00 Yes [id number] 5mg Take 1 tablet by mouth in the morning and 1 tablet at noon and 1 tablet in the evening. [facility] DULoxetine (CYMBALTA) 30 mg capsule 2021-07 0 00:00: 00 06-08 05:59 :00 No [id number] 60mg Take 2 capsules by mouth in the morning for 30 days. [facility] divalproex (DEPAKOTE) 250 mg EC tablet 2021-07 00:00: 00 06-08 05:59 :00 No [id number] 750mg Take 3 tablets by mouth every 8 (eight) hours for 30 days. [facility] LORazepam 1 mg tablet 2021-07 00:00: 00 05-19 04:59 :00 No [id number] 1mg Take 1 tablet by mouth every 6 (six) hours as needed for Anxiety or Agitation for up to 10 days. [facility] acetaminoph en-codeine 300-30 mg tablet 2021-07 00:00: 00 05-16 04:59 :00 No [id number] 1{tbl} Take 1 tablet by mouth every 4 (four) hours as needed for Pain (scale 7-10) for up to 7 days. Indication s: acute pain [facility] Methylpredn isolone 4 mg tablet 2021-07 00:00: 00 05-10 04:59 :00 No [id number] 4mg Take 1 tablet by mouth every 8 (eight) hours for 3 doses. [facility] divalproex (DEPAKOTE) EC tablet 750 mg 2021-07 01:00: 00 05-08 09:40 :23 No 750mg 750 mg, Oral, BID, First dose on Thu05/06/22 at 2000, Until Discontinu ed, Routine [facility] levETIRAcet am (KEPPRA) tablet 1,500 mg 2021-07 13:00: 00 05-06 18:38 :22 No 1500mg 1,500 mg, Oral, BID, First dose (after last modificati on) on Thu05/06/22 at 0800, Until Discontinu ed, Routine [facility] levETIR[facility]et am (KEPPRA) in NACL (ISO-OS) 1,000 mg/100 mL RTU 2021-07 05:00: 00 05-06 05:46 :00 No 1000mg 1,000 mg, IV Piggyback, ONCE, 1 dose, On Thu05/06/22 at 0000, Administer over 15 Minutes, 100 mL [facility] methocarbam oL (ROBAXIN) tablet 500 mg 2021-07 02:15: 00 05-06 23:21 :42 No 500mg 500 mg, Oral, QID, First dose on Thu05/05/22 at 2115, Until Discontinu ed, Routine [facility] LORazepam (ATIVAN) tablet 2 mg 2021-07 01:30: 00 05-06 01:03 :00 No 2mg 2 mg, Oral, ONCE, 1 dose, On Thu05/05/22 at 2030, Routine [facility] levETIRAcet am (KEPPRA) tablet 1,000 mg 2021-07 01:00: 00 05-06 04:48 :06 No 1000mg 1,000 mg, Oral, BID, First dose on Thu05/05/22 at 2000, Until Discontinu ed, Routine [facility] enoxaparin (LOVENOX) injection 40 mg 2021-07 00:15: 00 Yes 40mg 40 mg, Subcutaneo us, Q24H, First dose on Thu05/05/22 at 1915, Until Discontinu ed, Routine [facility] levETIRAcet am (KEPPRA) in NACL (ISO-OS) 1,000 mg/100 mL RTU 2021-07 19:45: 00 05-05 20:05 :00 No 1000mg 1,000 mg, IV Piggyback, ONCE, 1 dose, On Thu05/05/22 at 1445, Administer over 15 Minutes, 100 mL [facility] clonazePAM (KLONOPIN) tablet 0.5 mg 2021-07 19:30: 00 Yes .5mg 0.5 mg, Oral, BID, First dose on Thu05/05/22 at 1430, Until Discontinu ed, Routine [facility] ibuprofen (IBU) tablet 600 mg 2021-07 19:30: 00 Yes 600mg 600 mg, Oral, TID MEALS, First dose on Thu05/05/22 at 1430, Until Discontinu ed, Routine [facility] gabapentin (NEURONTIN) capsule 300 mg 2021-07 19:30: 00 Yes 300mg 300 mg, Oral, TID, First dose on Thu05/05/22 at 1430, Until Discontinu ed, Routine [facility] cyclobenzap rine (FLEXERIL) tablet 5 mg 2021-07 19:30: 00 Yes 5mg 5 mg, Oral, TID, First dose on Thu05/05/22 at 1430, Until Discontinu ed, Routine [facility] acetaminoph en (TYLENOL) tablet 1,000 mg 2021-07 19:30: 00 Yes 1000mg 1,000 mg, Oral, Q8H, First dose on Thu05/05/22 at 1430, Until Discontinu ed, Routine [facility] pantoprazol e (PROTONIX) EC tablet 40 mg 2021-07 14:00: 00 Yes 40mg 40 mg, Oral, DAILY, First dose on Thu05/05/22 at 0900, Until Discontinu ed, Routine [facility] docusate (COLACE) capsule 100 mg 2021-07 14:00: 00 Yes 100mg 100 mg, Oral, DAILY, First dose on Thu05/05/22 at 0900, Until Discontinu ed, Routine [facility] HYDROcodone -acetaminop hen (NORCO) 10-325 mg tablet 1 tablet 2021-07 10:32: 02 05-05 19:18 :52 No 1{tbl} 1 tablet, Oral, Q6HPRN, Starting on Thu05/05/22 at 0532, Until Thu05/05/22 at 1418, Routine, Pain (scale 7-10) [facility] ondansetron (ZOFRAN (PF)) injection 4 mg 2021-07 06:49: 57 Yes 4mg 4 mg, Slow IV Push, Q6HPRN, Starting on Thu05/05/22 at 0149, Until Discontinu ed, Routine, Nausea and Vomiting (N/V) [facility] HYDROcodone -acetaminop hen (NORCO 5) 5-325 [...] 1 dose, On Thu05/04/22 at 2300, Routine [facility] morpHINE (2 mg/mL) injection 2 mg 2021-07 04:00: 00 05-05 03:26 :00 No 2mg 2 mg, Slow IV Push, ONCE, 1 dose, On Thu05/04/22 at 2300, Routine [facility] aspirin 81 mg chewable tablet 04-16 00:00: 00 Yes [id number] 81mg Take 1 tablet by mouth in the morning. [facility] aspirin 81 mg chewable tablet 04-16 00:00: 00 Yes [id number] 81mg Take 1 tablet by mouth in the morning. [facility] aspirin 81 mg chewable tablet 04-16 00:00: 00 Yes [id number] 81mg Take 1 tablet by mouth in the morning. [facility] aspirin 81 mg chewable tablet 04-16 00:00: 00 Yes [id number] 81mg Take 1 tablet by mouth in the morning. [facility] aspirin 81 mg chewable tablet 04-16 00:00: 00 Yes [id number] 81mg Take 1 tablet by mouth in the morning. [facility] aspirin 81 mg chewable tablet 04-16 00:00: 00 Yes [id number] 81mg Take 1 tablet by mouth in the morning. [facility] aspirin 81 mg chewable tablet 04-16 00:00: 00 Yes [id number] 81mg Take 1 tablet by mouth in the morning. [facility] aspirin 81 mg chewable tablet 04-16 00:00: 00 Yes [id number] 81mg Take 1 tablet by mouth in the morning. [facility] aspirin 81 mg chewable tablet 04-16 00:00: 00 Yes [id number] 81mg Take 1 tablet by mouth in [...] Thu04/14/22 at 2115, Routine [facility] atorvastati n 40 mg tablet 04-15 00:00: 00 Yes [id number] 40mg Take 1 tablet by mouth at bedtime. [facility] levETIRAcet am 1,000 mg tablet 04-15 00:00: 00 Yes [id number] 1000mg Take 1 tablet by mouth in the morning and 1 tablet in the evening. [facility] atorvastati n 40 mg tablet 04-15 00:00: 00 Yes [id number] 40mg Take 1 tablet by mouth at bedtime. [facility] atorvastati n 40 mg tablet 04-15 00:00: 00 Yes [id number] 40mg Take 1 tablet by mouth at bedtime. [facility] atorvastati n 40 mg tablet 04-15 00:00: 00 Yes [id number] 40mg Take 1 tablet by mouth at bedtime. [facility] atorvastati n 40 mg tablet 04-15 00:00: 00 Yes [id number] 40mg Take 1 tablet by mouth at bedtime. [facility] atorvastati n 40 mg tablet 04-15 00:00: 00 Yes [id number] 40mg Take 1 tablet by mouth at bedtime. [facility] atorvastati n 40 mg tablet 04-15 00:00: 00 Yes [id number] 40mg Take 1 tablet by mouth at bedtime. [facility] atorvastati n 40 mg tablet 04-15 00:00: 00 Yes [id number] 40mg Take 1 tablet by mouth at bedtime. [facility] atorvastati n 40 mg tablet 04-15 00:00: 00 Yes [id number] 40mg Take 1 tablet by mouth at bedtime. [facility] levETIRAcet am 1,000 mg tablet 04-15 00:00: 00 05-08 00:00 :00 No [id number] 1000mg Take 1 tablet by mouth in the morning and 1 tablet in the evening. [facility] lidocaine 5 % (700 mg/patch) patch 04-15 00:00: 00 04-23 04:59 :00 No [id number] 1{patch } Apply 1 Patch to area(s) [...] 1 Patch, Topical, Administer over 12 Hours, [id number], Starting on Thu04/14/22 at 1645, Until Discontinu ed, Routine, Localized pain [facility] aspirin chewable tablet 81 mg 04-14 21:30: 00 Yes 81mg 81 mg, Oral, DAILY, First dose on Thu04/14/22 at 1630, Until Discontinu ed, Routine [facility] acetaminoph en (TYLENOL) tablet 650 mg 04-14 21:29: 25 Yes 650mg 650 mg, Oral, Q6HPRN, Starting on Thu04/14/22 at 1629, Until Discontinu ed, Routine, Pain (scale 1-3), Temp > 38.5 C, Temp > 37.5 C [facility] HYDROcodone -acetaminop hen (NORCO) 10-325 mg tablet 1 tablet 04-14 21:29: 02 04-15 05:39 :41 No 1{tbl} 1 tablet, Oral, Q6HPRN, Starting on Thu04/14/22 at 1629, Until Thu04/15/22 at 0039, Routine, Pain (scale 7-10), Pain (scale 4-6) [facility] sulfur hexafluorid e microsphr (LUMASON) injection 5 mL 04-14 16:45: 00 04-14 16:45 :00 No [id number] 5mL 5 mL, Intravenou s, ONCE, 1 dose, On Thu04/14/22 at 1145, Routine
retail team member approving Restricted medication : [employer] [facility] clopidogreL (PLAVIX) 75 mg tablet 75 mg 04-14 14:00: 00 Yes 75mg 75 mg, Oral, DAILY, First dose on Thu04/14/22 at 0900, Until Discontinu ed, Routine [facility] pantoprazol e (PROTONIX) EC tablet 40 mg 04-14 14:00: 00 Yes 40mg 40 mg, Oral, DAILY, First dose on Thu04/14/22 at 0900, Until Discontinu ed, Routine [facility] atorvastati n (LIPITOR) tablet 40 mg 04-14 02:00: 00 Yes 40mg 40 mg, Oral, QHS, First dose on 04/13/22 at 2100, Until Discontinu ed, Routine [facility] LORazepam (ATIVAN) tablet 1 mg 04-14 01:30: 00 04-14 01:45 :00 No 1mg 1 mg, Oral, ONCE, 1 dose, On 04/13/22 at 2030, Routine [facility] methocarbam oL (ROBAXIN) tablet 500 mg 04-14 01:00: 00 Yes 500mg 500 mg, Oral, QID, First dose on 04/13/22 at 2000, Until Discontinu ed, Routine [facility] heparin (porcine) injection 5,000 Units 04-14 01:00: 00 Yes 5000U 5,000 Units, Subcutaneo us, Q12H, First dose on 04/13/22 at 2000, Until Discontinu ed, Routine [facility] acetaminoph en (TYLENOL) tablet 650 mg 04-14 00:23: 25 04-14 21:29 :42 No 650mg 650 mg, Oral, Q6HPRN, Starting on 04/13/22 at 1923, Until 04/14/22 at 1629, Routine, Pain (scale 1-3), Pain (scale 4-6), Temp > 38.5 C, Temp > 37.5 C [facility] lidocaine (LIDODERM) 5 % (700 mg/patch) patch 1 Patch 04-14 00:22: 00 04-14 13:51 :00 No 1{patch } 1 Patch, Topical, Administer over 12 Hours, ONCE, 1 dose, On Thu04/13/22 at 1930, [facility] (SUBLIMAZE (PF)) injection 50 mcg 04-13 20:30: 00 04-13 19:22 :00 No 50ug 50 mcg, Slow IV Push, ONCE, 1 dose, On 04/13/22 at 1530, Routine [facility] aspirin chewable tablet 650 mg 04-13 20:15: 00 04-13 20:15 :00 No 650mg 650 mg, Oral, ONCE, 1 dose, On 04/13/22 at 1515, Routine [facility] clopidogreL (PLAVIX) 300 mg tablet 300 mg 04-13 20:00: 00 04-13 19:15 :00 No 300mg 300 mg, Oral, ONCE, 1 dose, On 04/13/22 at 1500, Routine [facility] ondansetron (ZOFRAN (PF)) injection 4 mg 04-13 19:30: 00 04-13 19:22 :00 No 4mg 4 mg, Slow IV Push, ONCE, 1 dose, On 04/13/22 at 1430, [facility] iopamidol (ISOVUE 370-500 mL) injection 100 mL 04-13 18:31: 00 04-13 18:32 :00 No [id number] 100mL 100 mL, Intravenou s, ONCE, 1 dose, On 04/13/22 at 1345, Routine [facility] NaCl 0.9% (NS) injection 5 mL [...] 1 dose, On 11/23/21 at 1730, [facility] acetaminoph en (TYLENOL) tablet 1,000 mg 11-23 22:15: 00 11-23 21:09 :00 No 1000mg 1,000 mg, Oral, ONCE, 1 dose, On 11/23/21 at 1715, [facility] ondansetron (ZOFRAN (PF)) injection 4 mg 11-23 21:45: 00 11-23 20:30 :00 No 4mg 4 mg, Slow IV Push, ONCE, 1 dose, On 11/23/21 at 1645, [facility] NaCl 0.9% (NS) bolus infusion 1,000 mL 11-23 21:30: 00 11-23 21:56 :00 No 1000mL at 999 mL/hr, 1,000 mL, IV Infusion, ONCE, 1 dose, On 11/23/21 at 1630, [facility] LORazepam (ATIVAN) injection 4 [...] 100 mL [facility] Dose Unknown 0 4-08 00:00: 00 [...] 2022-0 3-14 00:00: 00 No Dose Unknown 0 3-14 00:00: 00 No hydroxyzine HCl 50 mg tablet 0 3-09 00:00: 00 No 1mg Prozac 20 mg capsule 0 3-09 00:00: 00 No 1mg hydroxyzine HCl 50 mg tablet 0 3-09 00:00: 00 No 1mg Prozac 20 mg capsule 0 3-09 00:00: 00 No 1mg Dose Unknown 0 3-06 00:00: 00 No Dose Unknown 0 3-06 00:00: 00 No Dose Unknown 0 3-06 00:00: 00 No Dose Unknown 0 3- 00:00: 00 No Dose Unknown 0 3- 00:00: 00 No Dose Unknown 0 3- 00:00: 00 No Dose Unknown 0 3-06 [...] Push, ONCE, 1 dose, 03/16/21 at 2100, [facility] morpHINE injection 4 mg 03-17 01:58: 00 03-17 02:13 :00 No 4mg 4 mg, Slow IV Push, ONCE, 1 dose, 03/16/21 at 2100, STAT [facility] ondansetron (ZOFRAN (PF)) injection 4 mg 03-17 01:58: 00 03-17 02:12 :00 No 4mg 4 mg, Slow IV Push, ONCE, 1 dose, 03/16/21 at 2100, [facility] ipratropium -albuteroL (DUONEB) 0.5 mg-3 mg(2.5 mg base)/3 mL nebulizer solution 3 mL 03-17 01:57: 00 03-17 02:15 :00 No 3mL 3 mL, Inhalation , ONCE, 1 dose, 03/16/21 at 2099, [facility] NaCl 0.9% (NS) IV infusion 1,000 mL 03-17 01:57: 00 03-17 03:07 :00 No 1000mL at 999 mL/hr, Intravenou s, ONCE, 1 dose, 03/16/21 at 2100, [facility] methylpredn isolone sod succ (SOLU-MEDRO L) injection 125 mg 03-17 01:57: 00 03-17 02:11 :00 No 125mg 125 mg, Slow IV Push, ONCE, 1 dose, 03/16/21 at 2100, [facility] ipratropium -albuteroL (DUONEB) 0.5 mg-3 mg(2.5 mg base)/3 mL nebulizer solution 3 mL 03-17 01:57: 00 03-17 02:15 :00 No 3mL 3 mL, Inhalation , ONCE, 1 dose, 03/16/21 at 2100, [facility] ipratropium -albuteroL (DUONEB) 0.5 mg-3 mg(2.5 mg base)/3 mL nebulizer solution 3 mL 03-17 01:57: 00 03-17 02:15 :00 No 3mL 3 mL, Inhalation , ONCE, 1 dose, 03/16/21 at 2099, [facility] NaCl 0.9% (NS) IV infusion 1,000 mL 03-17 01:57: 00 03-17 03:07 :00 No 1000mL at 999 mL/hr, Intravenou s, ONCE, 1 dose, 03/16/21 at 2099, [facility] methylpredn isolone sod succ (SOLU-MEDRO L) injection 125 mg 03-17 01:57: 00 03-17 02:11 :00 No 125mg 125 mg, Slow IV Push, ONCE, 1 dose, 03/16/21 at 2100, [facility] ipratropium -albuteroL (DUONEB) 0.5 mg-3 mg(2.5 mg base)/3 mL nebulizer solution 3 mL 03-17 01:57: 00 03-17 02:15 :00 No 3mL 3 mL, Inhalation , ONCE, 1 dose, 03/16/21 at 2100, [facility] levoFLOXaci n 500 mg tablet 03-17 00:00: 00 03-24 04:59 :00 No [id number] 500mg Take 1 tablet by mouth daily for 6 days. [facility] levoFLOXaci n 500 mg tablet 03-17 00:00: 00 03-24 04:59 :00 No [id number] 500mg Take 1 tablet by mouth daily for 6 days. [facility] levoFLOXaci n 500 mg tablet 03-17 00:00: 00 03-24 04:59 :00 No [id number] 500mg Take 1 tablet by mouth daily for 6 days. [facility] levoFLOXaci n 500 mg tablet 03-17 00:00: 00 03-24 04:59 :00 No [id number] 500mg Take 1 tablet by mouth daily for 6 days. [facility] predniSONE 10 mg tablet 03-17 00:00: 00 03-22 04:59 :00 No [id number] 30mg Take 3 tablets by mouth daily for 4 days. [facility] predniSONE 10 mg tablet 03-17 00:00: 00 03-22 04:59 :00 No [id number] 30mg Take 3 tablets by mouth daily for 4 days. [facility] predniSONE 10 mg tablet 03-17 00:00: 00 03-22 04:59 :00 No [id number] 30mg Take 3 tablets by mouth daily for 4 days. [facility] predniSONE 10 mg tablet 03-17 00:00: 00 03-22 04:59 :00 No [id number] 30mg Take 3 tablets by mouth daily for 4 days. [facility] albuterol (VENTOLIN) inhaler 4 Puff 03-15 01:45: 00 03-15 00:44 :00 No [id number] 4{puff} 4 Puff, Inhalation , ONCE, 1 dose, [facility] 03/14/21 at 2044, Routine [facility] dexamethaso ne (DECADRON) injection 10 mg 03-15 01:45: 00 03-15 00:45 :00 No [id number] 10mg 10 mg, Intramuscu lar, ONCE, 1 dose, [facility] 03/14/21 at 2044, Routine [facility] albuterol 2.5 mg /3 mL (0.083 %) nebulizer solution 03-15 00:00: 00 Yes [id number] 2.5mg Inhale 3 mL every 4 (four) hours as needed for Wheezing or Shortness of Breath. [facility] albuterol 2.5 mg /3 mL (0.083 %) nebulizer solution 03-15 00:00: 00 Yes [id number] 2.5mg Inhale 3 mL every 4 (four) hours as needed for Wheezing or Shortness of Breath. [facility] albuterol 2.5 mg /3 mL (0.083 %) nebulizer solution 03-15 00:00: 00 Yes [id number] 2.5mg Inhale 3 mL every 4 (four) hours as needed for Wheezing or Shortness of Breath. [facility] albuterol 2.5 mg /3 mL (0.083 %) nebulizer solution 03-15 00:00: 00 Yes [id number] 2.5mg Inhale 3 mL every 4 (four) hours as needed for Wheezing or Shortness of Breath. [facility]5 [facility] /3 mL (0.083 %) nebulizer solution 03-15 00:00: 00 Yes [id number] 2.5mg Inhale 3 mL every 4 (four) hours as needed for Wheezing or Shortness of Breath. [facility] albuterol 2.5 mg /3 mL (0.083 %) nebulizer solution 03-15 00:00: 00 Yes [id number] 2.5mg Inhale 3 mL every 4 (four) hours as needed for Wheezing or Shortness of Breath. [facility] albuterol 2.5 mg /3 mL (0.083 %) nebulizer solution 03-15 00:00: 00 Yes [id number] 2.5mg Inhale 3 mL every 4 (four) hours as needed for Wheezing or Shortness of Breath. [facility] albuterol 2.5 mg /3 mL (0.083 %) nebulizer solution 03-15 00:00: 00 Yes [id number] 2.5mg Inhale 3 mL every 4 (four) hours as needed for Wheezing or Shortness of Breath. [facility] albuterol 2.5 mg /3 mL (0.083 %) nebulizer solution 03-15 00:00: 00 Yes [id number] 2.5mg Inhale 3 mL every 4 (four) hours as needed for Wheezing or Shortness of Breath. [facility] albuterol 2.5 mg /3 mL (0.083 %) nebulizer solution 03-15 00:00: 00 Yes [id number] 2.5mg Inhale 3 mL every 4 (four) hours as needed for Wheezing or Shortness of Breath. [facility] albuterol 2.5 mg /3 mL (0.083 %) nebulizer solution 03-15 00:00: 00 Yes [id number] 2.5mg Inhale 3 mL every 4 (four) hours as needed for Wheezing or Shortness of Breath. [facility] albuterol 2.5 mg /3 mL (0.083 %) nebulizer solution 03-15 00:00: 00 Yes [id number] 2.5mg Inhale 3 mL every 4 (four) hours as needed for Wheezing or Shortness of Breath. [facility] albuterol 2.5 mg /3 mL (0.083 %) nebulizer solution 03-15 00:00: 00 Yes [id number] 2.5mg Inhale 3 mL every 4 (four) hours as needed for Wheezing or Shortness of Breath. [facility] al[facility]er[facility] 2.5 mg /3 mL (0.083 %) nebulizer solution 03-15 00:00: 00 Yes [id number] 2.5mg Inhale 3 mL every 4 (four) hours as needed for Wheezing or Shortness of Breath. [facility] albuterol 2.5 mg /3 mL (0.083 %) nebulizer solution 03-15 00:00: 00 Yes [id number] 2.5mg Inhale 3 mL every 4 (four) hours as needed for Wheezing or Shortness of Breath. [facility] 2.5 mg /3 mL (0.083 %) nebulizer solution 03-15 00:00: 00 Yes [id number] 2.5mg Inhale 3 mL every 4 (four) hours as needed for Wheezing or Shortness of Breath. [facility]erol 2.5 mg /3 mL (0.083 %) nebulizer solution 03-15 00:00: 00 Yes [id number] 2.5mg Inhale 3 mL every 4 (four) hours as needed for Wheezing or Shortness of Breath. [facility] albuterol 2.5 mg /3 mL (0.083 %) nebulizer solution 03-15 00:00: 00 Yes [id number] 2.5mg Inhale 3 mL every 4 (four) hours as needed for Wheezing or Shortness of Breath. [facility] al[facility]erol 2.5 mg /3 mL (0.083 %) nebulizer solution 03-15 00:00: 00 Yes [id number] 2.5mg Inhale 3 mL every 4 (four) [...] 1 dose, e 02/19/21 at 1415, Routine [facility] proMETHazin e (PHENERGAN) 25 mg in NaCl 0.9% (NS) 50 mL piggyback 02-19 19:15: 00 02-19 19:03 :00 No 25mg 25 mg, IV Piggyback, ONCE, 1 dose, 02/19/21 at 1415, 50 mL [facility] morpHINE injection 4 mg 02-19 17:15: 00 02-19 17:05 :00 No 4mg 4 mg, Slow IV Push, ONCE, 1 dose, e 02/19/21 at 1215, STAT [facility] [...] ONCE, 1 dose, 02/19/21 at 1200, [facility] iopamidol (ISOVUE 370-500 mL) injection 100 mL 02-19 16:35: 00 02-19 16:45 :00 No [id number] 100mL 100 mL, Intravenou s, ONCE, 1 dose, 02/19/21 at 1145, Routine [facility] levetiracet [...] 25 mg tablet 02-19 00:00: 00 Yes [id number] 25mg Take 1 tablet by mouth every 6 (six) hours as needed for Nausea and Vomiting (N/V). [facility] dicyclomine 20 mg tablet 02-19 00:00: 00 Yes [id number] 20mg Take 1 tablet by mouth 4 (four) times daily as needed for Abdominal pain. [facility] proMETHazin e 25 mg tablet 2020-0 02-19 00:00: 00 Yes [id number] 25mg Take 1 tablet by mouth every 6 (six) hours as needed for Nausea and Vomiting (N/V). [facility] dicyclomine 20 mg tablet 0 02-19 00:00: 00 Yes [id number] 20mg Take 1 tablet by mouth 4 (four) times daily as needed for Abdominal pain. [facility] proMETHazin e 25 mg tablet 02-19 00:00: 00 Yes [id number] 25mg Take 1 tablet by mouth every 6 (six) hours as needed for Nausea and Vomiting (N/V). [facility] dicyclomine 20 mg tablet 02-19 00:00: 00 Yes [id number] 20mg Take 1 tablet by mouth 4 (four) times daily as needed for Abdominal pain. [facility] proMETHazin e 25 mg tablet 02-19 00:00: 00 Yes [id number] 25mg Take 1 tablet by mouth every 6 (six) hours as needed for Nausea and Vomiting (N/V). [facility] dicyclomine 20 mg tablet 0 02-19 00:00: 00 Yes [id number] 20mg Take 1 tablet by mouth 4 (four) times daily as needed for Abdominal pain. [facility] proMETHazin e 25 mg tablet 2020-0 02-19 00:00: 00 Yes [id number] 25mg Take 1 tablet by mouth every 6 (six) hours as needed for Nausea and Vomiting (N/V). [facility] dicyclomine 20 mg tablet 0 8- 00:00: 00 Yes [id number] 20mg Take 1 tablet by mouth 4 (four) times daily as needed for Abdominal pain. [facility] proMETHazin e 25 mg tablet 2020-0 8- 00:00: 00 Yes [id number] 25mg Take 1 tablet by mouth every 6 (six) hours as needed for Nausea and Vomiting (N/V). [facility] dicyclomine 20 mg tablet 0 8 00:00: 00 Yes [id number] 20mg Take 1 tablet by mouth 4 (four) times daily as needed for Abdominal pain. [facility] proMETHazin e 25 mg tablet 0 02-19 00:00: 00 Yes [id number] 25mg Take 1 tablet by mouth every 6 (six) hours as needed for Nausea and Vomiting (N/V). [facility] dicyclomine 20 mg tablet 0 02-19 00:00: 00 Yes [id number] 20mg Take 1 tablet by mouth 4 (four) times daily as needed for Abdominal pain. [facility] proMETHazin e 25 mg tablet 02-19 00:00: 00 Yes [id number] 25mg Take 1 tablet by mouth every 6 (six) hours as needed for Nausea and Vomiting (N/V). [facility] dicyclomine 20 mg tablet 0 02-19 00:00: 00 Yes [id number] 20mg Take 1 tablet by mouth 4 (four) times daily as needed for Abdominal pain. [facility] proMETHazin e 25 mg tablet 0 02-19 00:00: 00 Yes [id number] 25mg Take 1 tablet by mouth every 6 (six) hours as needed for Nausea and Vomiting (N/V). [facility] dicyclomine 20 mg tablet 0 02-19 00:00: 00 Yes [id number] 20mg Take 1 tablet by mouth 4 (four) times daily as needed for Abdominal pain. [facility] proMETHazin e 25 mg tablet 0 02-19 00:00: 00 Yes [id number] 25mg Take 1 tablet by mouth every 6 (six) hours as needed for Nausea and Vomiting (N/V). [facility] dicyclomine 20 mg tablet 2020-0 8- 00:00: 00 Yes [id number] 20mg Take 1 tablet by mouth 4 (four) times daily as needed for Abdominal pain. [facility] proMETHazin e 25 mg tablet 2020-0 8- 00:00: 00 Yes [id number] 25mg Take 1 tablet by mouth every 6 (six) hours as needed for Nausea and Vomiting (N/V). [facility] dicyclomine 20 mg tablet 0 8 00:00: 00 Yes [id number] 20mg Take 1 tablet by mouth 4 (four) times daily as needed for Abdominal pain. [facility] proMETHazin e 25 mg tablet 0 02-19 00:00: 00 Yes [id number] 25mg Take 1 tablet by mouth every 6 (six) hours as needed for Nausea and Vomiting (N/V). [facility] dicyclomine 20 mg tablet 0 02-19 00:00: 00 Yes [id number] 20mg Take 1 tablet by mouth 4 (four) times daily as needed for Abdominal pain. [facility] proMETHazin e 25 mg tablet 02-19 00:00: 00 Yes [id number] 25mg Take 1 tablet by mouth every 6 (six) hours as needed for Nausea and Vomiting (N/V). [facility] dicyclomine 20 mg tablet 02-19 00:00: 00 Yes [id number] 20mg Take 1 tablet by mouth 4 (four) times daily as needed for Abdominal pain. [facility] proMETHazin e 25 mg tablet 02-19 00:00: 00 Yes [id number] 25mg Take 1 tablet by mouth every 6 (six) hours as needed for Nausea and Vomiting (N/V). [facility] dicyclomine 20 mg tablet 0 - 00:00: 00 Yes [id number] 20mg Take 1 tablet by mouth 4 (four) times daily as needed for Abdominal pain. [facility] proMETHazin e 25 mg tablet 2020-0 8- 00:00: 00 Yes [id number] 25mg Take 1 tablet by mouth every 6 (six) hours as needed for Nausea and Vomiting (N/V). [facility] dicyclomine 20 mg tablet 0 8- 00:00: 00 Yes [id number] 20mg Take 1 tablet by mouth 4 (four) times daily as needed for Abdominal pain. [facility] proMETHazin e 25 mg tablet 02-19 00:00: 00 Yes [id number] 25mg Take 1 tablet by mouth every 6 (six) hours as needed for Nausea and Vomiting (N/V). [facility] dicyclomine 20 mg tablet 02-19 00:00: 00 Yes [id number] 20mg Take 1 tablet by mouth 4 (four) times daily as needed for Abdominal pain. [facility] proMETHazin e 25 mg tablet 02-19 00:00: 00 Yes [id number] 25mg Take 1 tablet by mouth every 6 (six) hours as needed for Nausea and Vomiting (N/V). [facility] dicyclomine 20 mg tablet 02-19 00:00: 00 Yes [id number] 20mg Take 1 tablet by mouth 4 (four) times daily as needed for Abdominal pain. [facility] proMETHazin e 25 mg tablet 02-19 00:00: 00 Yes [id number] 25mg Take 1 tablet by mouth every 6 (six) hours as needed for Nausea and Vomiting (N/V). [facility] dicyclomine 20 mg tablet 02-19 00:00: 00 Yes [id number] 20mg Take 1 tablet by mouth 4 (four) times daily as needed for Abdominal pain. [facility] proMETHazin e 25 mg tablet 02-19 00:00: 00 Yes [id number] 25mg Take 1 tablet by mouth every 6 (six) hours as needed for Nausea and Vomiting (N/V). [facility] dicyclomine 20 mg tablet 02-19 00:00: 00 Yes [id number] 20mg Take 1 tablet by mouth 4 (four) times daily as needed for Abdominal pain. [facility] proMETHazin e 25 mg tablet 02-19 00:00: 00 Yes [id number] 25mg Take 1 tablet by mouth every 6 (six) hours as needed for Nausea and Vomiting (N/V). [facility] dicyclomine 20 mg tablet 02-19 00:00: 00 Yes [id number] 20mg Take 1 tablet by mouth 4 [...] 19:58: 14 Yes Take by mouth daily. [facility] 02-09 19:58: 14 Yes 1{tbl} Take 1 Tab by mouth daily. [facility] loratadine (CLARITIN LIQUI-GEL) 10 mg capsule 02-09 19:58: 14 Yes Take by mouth daily. [facility]AL 02-09 [...] Tab by mouth daily. [facility] Immunizations Ordered Immunization Name Filled Immunization Name Date Status Comments Source SARS-COV-2 COVID-19 PFIZER BA-SUCROSE VACCINE (ROSE TOP) 2022-02-19 00:00:00 Completed [facility] SARS-COV-2 COVID-19 PFIZER BA-SUCROSE VACCINE (ROSE TOP) 2022-02-19 00:00:00 Completed [facility] SARS-COV-2 COVID-19 PFIZER BA-SUCROSE VACCINE (ROSE TOP) 2022-02-19 00:00:00 Completed [facility] SARS-COV-2 COVID-19 PFIZER BA-SUCROSE VACCINE (ROSE TOP) 2022-02-19 00:00:00 Completed [facility] SARS-COV-2 COVID-19 PFIZER BA-SUCROSE VACCINE (ROSE TOP) 2022-02-19 00:00:00 Completed [facility] SARS-COV-2 COVID-19 PFIZER BA-SUCROSE VACCINE (ROSE TOP) 2022-02-19 00:00:00 Completed [facility] SARS-COV-2 COVID-19 PFIZER BA-SUCROSE VACCINE (ROSE TOP) 2022-02-19 00:00:00 Completed [facility] SARS-COV-2 COVID-19 PFIZER BA-SUCROSE VACCINE (ROSE TOP) 2022-02-19 00:00:00 Completed [facility] SARS-COV-2 COVID-19 PFIZER BA-SUCROSE VACCINE (ROSE TOP) 2022-02-19 00:00:00 Completed [facility] SARS-COV-2 COVID-19 PFIZER VACCINE 2021-05-24 00:00:00 Completed [facility] SARS-COV-2 COVID-19 PFIZER VACCINE 2021-05-24 00:00:00 Completed [facility] SARS-COV-2 COVID-19 PFIZER VACCINE 2021-05-24 00:00:00 Completed [facility] SARS-COV-2 COVID-19 PFIZER VACCINE 2021-05-24 00:00:00 Completed [facility] SARS-COV-2 COVID-19 PFIZER VACCINE 2021-05-24 00:00:00 Completed [facility] SARS-COV-2 COVID-19 PFIZER VACCINE 2021-05-24 00:00:00 Completed [facility] SARS-COV-2 COVID-19 PFIZER VACCINE 2021-05-24 00:00:00 Completed [facility] SARS-COV-2 COVID-19 PFIZER VACCINE 2021-05-24 00:00:00 Completed [facility] SARS-COV-2 COVID-19 PFIZER VACCINE 2021-05-24 00:00:00 Completed [facility] SARS-COV-2 COVID-19 PFIZER VACCINE 2021-05-24 00:00:00 Completed [facility] SARS-COV-2 COVID-19 PFIZER VACCINE 2021-05-24 00:00:00 Completed [facility] SARS-COV-2 COVID-19 PFIZER VACCINE 2021-05-03 00:00:00 Completed [facility] SARS-COV-2 COVID-19 PFIZER VACCINE 2021-05-03 00:00:00 Completed [facility] SARS-COV-2 COVID-19 PFIZER VACCINE 2021-05-03 00:00:00 Completed [facility] SARS-COV-2 COVID-19 PFIZER VACCINE 2021-05-03 00:00:00 Completed [facility] SARS-COV-2 COVID-19 PFIZER VACCINE 2021-05-03 00:00:00 Completed [facility] SARS-COV-2 COVID-19 PFIZER VACCINE 2021-05-03 00:00:00 Completed [facility] SARS-COV-2 COVID-19 PFIZER VACCINE 2021-05-03 00:00:00 Completed [facility] SARS-COV-2 COVID-19 PFIZER VACCINE 2021-05-03 00:00:00 Completed [facility] SARS-COV-2 COVID-19 PFIZER VACCINE 2021-05-03 00:00:00 Completed [facility] SARS-COV-2 COVID-19 PFIZER VACCINE 2021-05-03 00:00:00 Completed [facility] SARS-COV-2 COVID-19 PFIZER VACCINE 2021-05-03 00:00:00 Completed [facility] SARS-COV-2 COVID-19 PFIZER VACCINE 2021-05-03 00:00:00 Completed [facility] SARS-COV-2 COVID-19 PFIZER VACCINE Unknown Completed [facility] SARS-COV-2 COVID-19 PFIZER VACCINE Unknown Completed [facility] SARS-COV-2 COVID-19 PFIZER BA-SUCROSE VACCINE (ROSE TOP) Unknown Completed [facility] Vital Signs Vital Name Observation [...] 97 /min Cynthia Bedoyao ld - External Systolic blood pressure 2023-08-12 21:00:00 130 mm[Hg] [facility] Diastolic blood pressure 2023-08-12 21:00:00 85 mm[Hg] [facility] Heart rate 2023-08-12 21:00:00 106 /min [facility] Respiratory rate 2023-08-12 21:00:00 14 /min [facility] Oxygen saturation in Arterial blood by Pulse oximetry 2023-08-12 21:00:00 95 /min [facility] Body temperature 2023-08-12 20:34:54 37.22 Radha [facility] Body height 2023-08-12 19:47:00 157.5 cm [facility] Body weight 2023-08-12 19:47:00 81.647 kg [facility] BMI 2023-08-12 19:47:00 32.92 kg/m2 [facility] WEIGHT 2023-06-16 05:26:00 86.047 kg [...] Systolic blood pressure 2022-12-11 20:00:00 142 mm[Hg] [facility] Diastolic blood pressure 2022-12-11 20:00:00 90 mm[Hg] [facility] Respiratory rate 2022-12-11 20:00:00 24 /min [facility] Heart rate 2022-12-11 18:00:00 101 /min [facility] Oxygen saturation in Arterial blood by Pulse oximetry 2022-12-11 18:00:00 93 /min [facility] BMI 2022-12-11 13:55:00 35.43 kg/m2 [facility] Body temperature 2022-12-11 13:55:00 37.22 Radha [facility] Body weight 2022-12-11 13:55:00 90.719 kg [facility] Systolic blood pressure 2022-11-18 05:34:00 152 mm[Hg] [facility] Diastolic blood pressure 2022-11-18 05:34:00 98 mm[Hg] [facility] Heart rate 2022-11-18 05:34:00 88 /min [facility] Respiratory rate 2022-11-18 05:34:00 18 /min [facility] Oxygen saturation in Arterial blood by Pulse oximetry 2022-11-18 05:34:00 97 /min [facility] Body temperature 2022-11-17 22:28:00 37.06 Radha [facility] Body height 2022-11-17 22:28:00 160 cm [facility] Body weight 2022-11-17 22:28:00 99.791 kg [facility] BMI 2022-11-17 22:28:00 38.97 kg/m2 [facility] Heart rate 2022-08-02 02:02:00 108 /min [facility] Respiratory rate 2022-08-02 02:02:00 28 /min [facility] Oxygen saturation in Arterial blood by Pulse oximetry 2022-08-02 02:02:00 97 /min [facility] Body temperature 2022-08-02 01:00:00 36.44 Radha [facility] Systolic blood pressure 2022-08-01 23:29:00 145 mm[Hg] [facility] Diastolic blood pressure 2022-08-01 23:29:00 103 mm[Hg] [facility] Body weight 2022-08-01 09:16:00 97.977 kg [facility] BMI 2022-08-01 09:16:00 38.26 kg/m2 [facility] Body height 2022-07-31 21:54:00 160 cm [facility] Systolic blood pressure 2022-05-08 16:40:00 146 mm[Hg] [facility] Diastolic blood pressure 2022-05-08 16:40:00 96 mm[Hg] [facility] Heart rate 2022-05-08 16:40:00 112 /min [facility] Body temperature 2022-05-08 16:40:00 36.78 Radha [facility] Respiratory rate 2022-05-08 16:40:00 18 /min [facility] Oxygen saturation in Arterial blood by Pulse oximetry 2022-05-08 16:40:00 94 /min [facility] Body height 2022-05-05 23:44:00 160 cm [facility] Body weight 2022-05-05 23:37:00 81.647 kg [facility] BMI 2022-05-05 23:37:00 31.89 kg/m2 [facility] Systolic blood pressure 2022-04-15 18:52:00 104 mm[Hg] [facility] Diastolic blood pressure 2022-04-15 18:52:00 82 mm[Hg] [facility] Heart rate 2022-04-15 18:52:00 114 /min [facility] Oxygen saturation in Arterial blood by Pulse oximetry 2022-04-15 18:52:00 98 /min [facility] Body temperature 2022-04-15 16:14:00 36.28 Radha [facility] Respiratory rate 2022-04-15 16:14:00 17 /min [facility] Body height 2022-04-13 21:08:00 160 cm [facility] Body weight 2022-04-13 21:08:00 91.173 kg [facility] BMI 2022-04-13 21:08:00 35.61 kg/m2 [facility] Systolic blood pressure 2021-11-23 21:30:00 132 mm[Hg] [facility] Diastolic blood pressure 2021-11-23 21:30:00 76 mm[Hg] [facility] Heart rate 2021-11-23 21:30:00 95 /min [facility] Respiratory rate 2021-11-23 21:30:00 13 /min [facility] Oxygen saturation in Arterial blood by Pulse oximetry 2021-11-23 21:30:00 97 /min [facility] Body temperature 2021-11-23 20:15:00 37.56 Radha [facility] Systolic blood pressure 2021-03-17 03:00:00 117 mm[Hg] [facility] Diastolic blood pressure 2021-03-17 03:00:00 76 mm[Hg] [facility] Heart rate 2021-03-17 03:00:00 104 /min [facility] Respiratory rate 2021-03-17 03:00:00 28 /min [facility] Oxygen saturation in Arterial blood by Pulse oximetry 2021-03-17 03:00:00 96 /min [facility] Body temperature 2021-03-17 00:39:00 37.11 Radha [facility] Body height 2021-03-17 00:39:00 160 cm [facility] Body weight 2021-03-17 00:39:00 58.968 kg [facility] BMI 2021-03-17 00:39:00 23.03 kg/m2 [facility] Systolic blood pressure 2021-03-15 00:14:00 149 mm[Hg] [facility] Diastolic blood pressure 2021-03-15 00:14:00 78 mm[Hg] [facility] Heart rate 2021-03-15 00:14:00 100 /min [facility] Body temperature 2021-03-15 00:14:00 37.33 Radha [facility] Respiratory rate 2021-03-15 00:14:00 24 /min [facility] Body height 2021-03-15 00:14:00 160 cm [facility] Body weight 2021-03-15 00:14:00 58.968 kg [facility] BMI 2021-03-15 00:14:00 23.03 kg/m2 [facility] Oxygen saturation in Arterial blood by Pulse oximetry 2021-03-15 00:14:00 98 /min [facility] Systolic blood pressure 2021-02-19 18:00:00 131 mm[Hg] [facility] Diastolic blood pressure 2021-02-19 18:00:00 80 mm[Hg] [facility] Heart rate 2021-02-19 18:00:00 83 /min [facility] Respiratory rate 2021-02-19 18:00:00 18 /min [facility] Oxygen saturation in Arterial blood by Pulse oximetry 2021-02-19 18:00:00 100 /min [facility] Body temperature 2021-02-19 15:47:00 37 Radha [facility] Body height 2021-02-19 15:47:00 160 cm [facility] Body weight 2021-02-19 15:47:00 58.968 kg [facility] BMI 2021-02-19 15:47:00 23.03 kg/m2 [facility] Heart rate 2023-09-08 08:54:00 118 /min [facility] Respiratory rate 2023-09-08 08:54:00 21 /min [facility] Oxygen saturation in Arterial blood by Pulse oximetry 2023-09-08 08:54:00 100 /min [facility] Systolic blood pressure 2023-09-08 08:32:00 110 mm[Hg] [facility] Diastolic blood pressure 2023-09-08 08:32:00 77 mm[Hg] [facility] Body temperature 2023-09-08 08:32:00 36.06 Radha [facility] Body height 2023-09-04 00:58:00 157.5 cm [facility] Body weight 2023-09-04 00:58:00 80 kg [facility] BMI 2023-09-04 00:58:00 32.26 kg/m2 [facility] Heart rate 2023-06-16 17:00:00 108 /min [facility] Systolic blood pressure 2023-06-16 15:31:00 101 mm[Hg] [facility] Diastolic blood pressure 2023-06-16 15:31:00 81 mm[Hg] [facility] Body temperature 2023-06-16 15:31:00 36.61 Radha [facility] Respiratory rate 2023-06-16 15:31:00 18 /min [facility] Oxygen saturation in Arterial blood by Pulse oximetry 2023-06-16 15:31:00 94 /min [facility] Body weight 2023-06-16 05:26:00 86.047 kg [facility] BMI 2023-06-16 05:26:00 33.60 kg/m2 [facility] Body height 2023-06-13 04:00:00 160 cm [facility] Systolic blood pressure 2023-06-04 13:02:00 93 mm[Hg] [facility] Diastolic blood pressure 2023-06-04 13:02:00 57 mm[Hg] [facility] Heart rate 2023-06-04 13:02:00 101 /min [facility] Respiratory rate 2023-06-04 13:02:00 22 /min [facility] Oxygen saturation in Arterial blood by Pulse oximetry 2023-06-04 13:02:00 95 /min room air [facility] Body temperature 2023-06-04 11:46:00 35.28 Radha [facility] Systolic blood pressure 2023-05-28 16:00:00 154 mm[Hg] [facility] Diastolic blood pressure 2023-05-28 16:00:00 82 mm[Hg] [facility] Heart rate 2023-05-28 16:00:00 89 /min [facility] Body temperature 2023-05-28 16:00:00 36.67 Radha [facility] Respiratory rate 2023-05-28 16:00:00 16 /min [facility] Oxygen saturation in Arterial blood by Pulse oximetry 2023-05-28 16:00:00 97 /min [facility] Body height 2023-05-28 07:00:00 157.5 cm [facility] Body weight 2023-05-28 07:00:00 87.544 kg [facility] BMI 2023-05-28 07:00:00 35.30 kg/m2 [facility] Body height 2023-05-26 09:12:00 157.5 cm [facility] Body weight 2023-05-26 09:12:00 87.091 kg [facility] BMI 2023-05-26 09:12:00 35.12 kg/m2 [facility] Respiratory rate 2023-04-02 16:35:00 18 /min [facility] Oxygen saturation in Arterial blood by Pulse oximetry 2023-04-02 16:35:00 98 /min [facility] Systolic blood pressure 2023-04-02 12:00:00 147 mm[Hg] [facility] Diastolic blood pressure 2023-04-02 12:00:00 97 mm[Hg] [facility] Heart rate 2023-04-02 12:00:00 106 /min [facility] Body temperature 2023-04-02 12:00:00 36.28 Radha [facility] Body height 2023-03-30 02:14:00 157.5 cm [facility] Body weight 2023-03-30 02:14:00 92.08 kg [facility] BMI 2023-03-30 02:14:00 37.13 kg/m2 [facility] Respiratory rate 2022-08-03 14:40:00 18 /min [facility] Systolic blood pressure 2022-08-03 12:13:00 112 mm[Hg] [facility] Diastolic blood pressure 2022-08-03 12:13:00 77 mm[Hg] [facility] Heart rate 2022-08-03 12:13:00 115 /min [facility] Oxygen saturation in Arterial blood by Pulse oximetry 2022-08-03 12:13:00 93 /min [facility] Body temperature 2022-08-03 12:00:00 36.83 Radha [facility] Body height 2022-08-02 21:52:00 160.2 cm [facility] Body weight 2022-08-02 21:52:00 95 kg [facility] BMI 2022-08-02 21:52:00 37.02 kg/m2 [facility] BP Systolic 2022-07-24 13:31:00 136 mm[Hg] [...] Clinician Source POCT-GLUCOSE METER 2023-09-08 08:40:00 Bud [facility] CBC W/PLT COUNT & AUTO DIFFERENTIAL 2023-09-08 04:16:00 [facility] [place] METABOLIC PANEL 2023-09-08 04:16:00 [facility] [place]NESIUM 2023-09-08 04:16:00 [facility] PHOSPHORUS 2023-09-08 04:16:00 [facility] [place] W/PLT COUNT & AUTO DIFFERENTIAL 2023-09-08 04:16:00 [facility] POCT-GLUCOSE METER 2023-09-07 21:29:00 Bud [facility] XR KNEE 3 VIEWS LEFT 2023-09-07 19:21:02 Bud [facility] VENOUS DOPPLER LEGS BILATERAL 2023-09-07 12:45:00 [facility] [place] W/PLT COUNT & AUTO DIFFERENTIAL 2023-09-07 03:17:00 [facility] [place]IC METABOLIC PANEL 2023-09-07 03:17:00 [facility] MAGNESIUM 2023-09-07 03:17:00 [facility] PHOSPHORUS 2023-09-07 03:17:00 [facility] [place] W/PLT COUNT & AUTO DIFFERENTIAL 2023-09-07 03:17:00 [facility] POCT-GLUCOSE METER 2023-09-06 21:17:00 Bud [facility] POCT-GLUCOSE METER 2023-09-06 18:37:00 Bud [facility] POCT-GLUCOSE METER 2023-09-06 13:16:00 Bud [facility] POCT-GLUCOSE METER 2023-09-06 08:21:00 Bud [facility] CBC W/PLT COUNT & AUTO DIFFERENTIAL 2023-09-06 04:49:00 [facility] [place]IC METABOLIC PANEL 2023-09-06 04:49:00 [facility] [place]NESIUM 2023-09-06 04:49:00 [facility] PHOSPHORUS 2023-09-06 04:49:00 [facility] [place] W/PLT COUNT & AUTO DIFFERENTIAL 2023-09-06 04:49:00 [facility] POCT-GLUCOSE METER 2023-09-05 21:24:00 Bud [facility] MR BRAIN WITH & WITHOUT IV CONTRAST 2023-09-05 11:25:07 Sandi Aleman [facility] POCT-GLUCOSE METER 2023-09-05 08:10:00 Bud [facility] CBC W/PLT COUNT & AUTO DIFFERENTIAL 2023-09-05 04:44:00 [facility] [place]IC METABOLIC PANEL 2023-09-05 04:44:00 [facility] MAGNESIUM 2023-09-05 04:44:00 [facility] PHOSPHORUS 2023-09-05 04:44:00 [facility] POCT-GLUCOSE METER 2023-09-05 [facility] & AUTO [facility]FFERENTIAL 2023-09-05 04:44:00 [facility] POCT-GLUCOSE METER 2023-09-04 21:38:00 Lisandra [facility] POCT-GLUCOSE METER 2023-09-04 15:42:00 [facility] SARS-COV2/INFLUENZA/RSV RT-PCR 2023-09-04 11:25:00 Uli [facility] POCT-GLUCOSE METER 2023-09-04 10:53:00 Sabas [facility] POCT-GLUCOSE METER 2023-09-04 08:04:00 Sabas Pankaj [facility] PROCALCITONIN 2023-09-04 06:56:00 Uli [facility] IRON, TIBC, % SAT. (WITHOUT FERRITIN) 2023-09-04 06:56:00 [facility] FERRITIN 2023-09-04 06:56:00 Uli [facility] BLOOD CULTURE 2023-09-04 06:37:00 [facility] WITHOUT IV CONTRAST 2023-09-04 05:47:25 [place] Ogden [facility] MR THORACIC SPINE WITHOUT IV CONTRAST 2023-09-04 04:53:00 [place] Ogden [facility] MR CERVICAL SPINE WITHOUT IV CONTRAST 2023-09-04 04:18:00 [place] Ogden [facility] CT THORACIC SPINE WITHOUT IV CONTRAST 2023-09-04 03:08:00 Randall [facility] CT LUMBAR SPINE WITHOUT IV CONTRAST 2023-09-04 03:08:00 Randall [facility] LACTIC ACID, VENOUS 2023-09-04 01:42:00 [facility] TYPE AND SCREEN, AUTOMATED 2023-09-04 01:42:00 [facility] CBC W/PLT COUNT & AUTO DIFFERENTIAL 2023-09-04 00:51:00 [facility] COMPREHENSIVE METABOLIC PANEL 2023-09-04 00:51:00 [facility] MAGNESIUM 2023-09-04 00:51:00 [facility] PHOSPHORUS 2023-09-04 00:51:00 [facility] PROTHROMBIN TIME/INR 2023-09-04 00:51:00 [facility] APTT 2023-09-04 00:51:00 [facility] B-TYPE NATRIURETIC FACTOR (BNP) 2023-09-04 00:51:00 [facility] URINALYSIS WITHOUT MICROSCOPIC 2023-09-04 00:51:00 [facility] RAPID DRUG SCREEN, URINE 2023-09-04 00:51:00 [facility] D-DIMER 2023-09-04 00:51:00 London Loyola [facility] FIBRINOGEN 2023-09-04 00:51:00 Randall [facility] CBC W/PLT COUNT & AUTO DIFFERENTIAL 2023-09-04 00:51:00 [facility] EKG-SCANNED 2023-09-04 00:00:00 Eliceo Montanez [facility] LACTIC ACID WHOLE BLOOD 2023-08-12 20:31:00 Brian Bryan [facility] COMP. METABOLIC PANEL (19935) 2023-08-12 20:29:00 Brian Bryan [facility] CBC WITH DIFF 2023-08-12 20:29:00 Brian Bryan [facility] CONSENT/REFUSAL FOR DIAGNOSI S AND TREATMENT 2023-08-12 19:43:16 Doctor Unassigned, [place] [facility] TRANSESOPHAGEAL ECHO 2023-06-16 11:05:00 [facility] T SPOT TB 2023-06-15 04:51:00 [facility] FUNGITELL R B-D-GLUCAN WITH REFLEX TO TITER 2023-06-15 04:51:00 [facility] ASPERGILLUS GALACTOMANNAN ANTIGEN 2023-06-15 04:51:00 [facility] VANCOMYCIN LEVEL, TROUGH 2023-06-15 04:51:00 Kaylene Mendosa [facility] T-SPOT(R).TB (QUEST) 2023-06-15 04:27:00 System, Provider Not In [facility] T-SPOT(R).TB (QUEST) 2023-06-15 04:27:00 System, Provider Not In [facility] ECHO W CONTRAST & DOPPLER 2023-06-14 09:22:00 [facility] HEMOGLOBIN A1C 2023-06-14 04:08:00 Cara Burgess [facility] CBC (HEMOGRAM ONLY) 2023-06-14 04:08:00 [facility] BASIC METABOLIC PANEL 2023-06-14 04:08:00 [facility] CRYPTOCOCCAL ANTIGEN 2023-06-13 17:21:00 [facility] HC LAB HIV-1 AG W/HIV-1&2 AB 2023-06-13 17:21:00 Ross[facility] VENOUS DOPPLER ARM, LEFT 2023-06-13 17:20:00 Cara Burgess [facility] LEGIONELLA ANTIGEN, URINE 2023-06-13 17:00:00 [facility] SPUTUM CULT[facility] + GRAM STAIN 2023-06-13 14:33:00 Abbi [facility] MR LUMBAR SPINE WITH & WITHOUT IV CONTRAST 2023-06-13 13:03:47 Burt Nelson [facility] ECG 12-LEAD 2023-06-13 11:47:02 Abbi [facility] ECG 12-LEAD 2023-06-13 11:47:02 Unknown, [facility] ECG 12-LEAD 2023-06-13 11:47:02 Unknown, [facility] MRSA SCREEN 2023-06-13 09:19:00 Abbi [facility] CBC W/PLT COUNT & AUTO DIFFERENTIAL 2023-06-13 06:03:00 Cara Burg[facility] COMPREHENSIVE METABOLIC PANEL 2023-06-13 06:03:00 [facility] PROTHROMBIN TIME/INR 2023-06-13 06:03:00 [facility] CREATINE KINASE (CK) 2023-06-13 06:03:00 [facility] CBC W/PLT COUNT & AUTO DIFFERENTIAL 2023-06-13 06:03:00 Cara Burgess [facility] BLOOD CULTURE 2023-06-13 06:02:00 Cara Burgess [facility] CBC W/PLT COUNT & AUTO DIFFERENTIAL 2023-06-02 04:41:00 Sunil Chu [facility] BASIC METABOLIC PANEL 2023-06-02 04:41:00 Sunil Chu [facility] MAGNESIUM 2023-06-02 04:41:00 Sunil Chu [facility] PHOSPHORUS 2023-06-02 04:41:00 Sunil Chu [facility] CBC W/PLT COUNT & AUTO DIFFERENTIAL 2023-06-02 04:41:00 Sunil Chu [facility] XR SPINE LUMBAR 1 VIEW 2023-06-01 10:31:00 Adam Garcia [facility] XR SPINE LUMBAR 1 VIEW 2023-06-01 09:46:00 Jose Adam C [facility] LAMINECTOMY, SPINE, LUMBAR 2023-06-01 09:10:00 [place] [facility] PROCEDURE W/ C-ARM 2023-06-01 09:10:00 [place] [facility] LAMINECTOMY, SPINE, LUMBAR 2023-06-01 07:30:00 [place] [facility] PROCEDURE W/ C-ARM 2023-06-01 07:30:00 [place] [facility] SCREEN, URINE 2023-06-01 04:33:00 [place] [facility] BASIC METABOLIC PANEL 2023-05-31 22:55:00 [facility] CBC W/PLT COUNT & AUTO DIFFERENTIAL 2023-05-31 22:55:00 Patricia [facility] PT/APTT 2023-05-31 22:55:00 Patricia [facility] CBC W/PLT COUNT & AUTO DIFFERENTIAL 2023-05-31 22:55:00 Patricia [facility] CT NECK SOFT TISSUE WITHOUT IV CONTRAST 2023-05-31 09:39:30 [facility] TYPE AND SCREEN, AUTOMATED 2023-05-31 09:13:00 Burt Nelson [facility] BASIC METABOLIC PANEL 2023-05-29 06:43:00 Burt Nelson [facility] CBC W/PLT COUNT & AUTO DIFFERENTIAL 2023-05-29 06:43:00 Omar Burt [facility] CBC W/PLT COUNT & AUTO DIFFERENTIAL 2023-05-29 06:43:00 Omar Butr [facility] XR SPINE CERVICAL 2 OR 3 VIEWS 2023-05-28 18:57:00 Omar Burt [facility] FL FLUORO NON-SPECIFIC UP TO 1 HOUR 2023-05-28 10:48:00 Adam Garcia [facility] [place] FLUORO NON-SPECIFIC UP TO 1 HOUR 2023-05-28 10:07:00 Jose Adam [facility] DISCECTOMY, SPINE, CERVICAL, ANTERIOR APPROACH, WITH FUSION 2023-05-28 08:15:00 Jose [facility] INSERTION, HARDWARE, SPINAL 2023-05-28 08:15:00 Jose [facility] PROCEDURE, ALLOGRAFT, FOR SPINE SURGERY 2023-05-28 08:15:00 Jose [facility] AUTOGRAFT FOR SPINE SURGERY 2023-05-28 08:15:00 [place] [facility] PROCEDURE W/ C-ARM 2023-05-28 08:15:00 [place] [facility] NEUROPHYSIOLOGIC MONITORING, INTRAOPERATIVE 2023-05-28 08:15:00 [place] [facility] PROCEDURE, USING OPERATING MICROSCOPE 2023-05-28 08:15:00 [place] [facility] HCG, QUANTITATIVE, 2023-05-28 07:42:00 Yue Bui [facility] TYPE AND SCREEN, AUTOMATED 2023-05-28 07:42:00 Ketan Scruggs [facility] XR CHEST 1 VIEW PORTABLE / BEDSIDE 2023-04-01 15:32:16 [facility] B-TYPE NATRIURETIC FACTOR (BNP) 2023-04-01 13:32:00 Thomas Lozoya [facility] ECHO W CONTRAST & DOPPLER 2023-03-31 20:18:37 [facility] MR CERVICAL SPINE WITHOUT IV CONTRAST 2023-03-31 09:25:00 Selin Lewis [facility] CBC (HEMOGRAM ONLY) 2023-03-31 03:45:00 Jas[facility] COMPREHENSIVE METABOLIC PANEL 2023-03-31 03:45:00 Jas[facility] ARTERIAL DOPPLER LEGS BILATERAL 2023-03-30 15:45:00 Jasen [facility] ARTERIAL (ALEISHA'S W/ DOPPLER) ONLY 2023-03-30 15:44:00 Jasen [facility] ECG 12-LEAD 2023-03-30 13:06:22 Jasen [facility] ECG 12-LEAD 2023-03-30 13:06:22 Unknown, [facility] ECG 12-LEAD 2023-03-30 13:06:22 Unknown, [facility] MR THORACIC SPINE WITHOUT IV CONTRAST 2023-03-30 12:29:58 Eric [facility] MR LUMBAR SPINE WITHOUT IV CONTRAST 2023-03-30 11:58:00 [facility] [facility] EEG AWAKE AND DROWSY 2023-03-30 09:57:[facility], TOTAL 2023-03-30 09:06:00 Berry [facility] URINALYSIS W/ REFLEX URINE CULTURE 2023-03-30 03:54:00 Eric [facility] CBC (HEMOGRAM ONLY) 2023-03-30 03:52[facility]00 [facility] 2023-03-30 03:52:00 [facility] HEMOGLOBIN A1C 2023-03-30 03:52[facility] 2023-03-30 03:52:00 Thomas Lozoya [facility] EKG-SCANNED 2023-03-29 00:00:00 Provider, Default Scanning [facility] CT HEAD WO CONTRAST 2022-12-11 18:36:49 Alfonso Alvarado [facility] URINE DRUG (IMMUNOASSAY) - COMPREHENSIVE DRUG SCREEN 2022-12-11 17:13:00 Alfonso Alvarado [facility] URINALYSIS 2022-12-11 17:13:00 Alfonso Alvarado [facility] CT CHEST PULMONARY ANGIOGRAM 2022-12-11 16:26:39 Alfonso Alvarado [facility] MAGNESIUM 2022-12-11 14:57:00 Alfonso Alvarado [facility] COMP. METABOLIC PANEL (98084) 2022-12-11 14:57:00 Alfonso Alvarado [facility] D-DIMER 2022-12-11 14:15:00 Alfonso Alvarado [facility] XR CHEST 1 VW 2022-12-11 14:10:26 Alfonso Alvarado [facility] TROPONIN I 2022-12-11 14:02:00 Alfonso Alvarado [facility] CBC WITH DIFF 2022-12-11 14:02:00 Alfonso Alvarado Lorelei [facility] N-TERMINAL PRO-BNP 2022-12-11 14:02:00 Alfonso Alvarado Lorelei [facility] HB ECG ROUTINE & RHYTHM STRIP 2022-12-11 14:01:08 Alfonso Alvarado Lorelei [facility] CONSENT/REFUSAL FOR DIAGNOSI S AND TREATMENT 2022-12-11 13:52:01 Doctor Unassigned, [place] [facility] ECG 12-LEAD 2022-08-03 05:03:32 Unknown, Hl7 Doctor [facility] ECG 12-LEAD 2022-08-03 05:03:32 Unknown, Hl7 Doctor [facility] LIPID PANEL 2022-08-02 21:14:00 [facility] TSH/FREE T4 IF INDICATED 2022-08-02 21:14:00 [facility] VITAMIN B12 2022-08-02 21:14:00 [facility] HEMOGLOBIN A1C 2022-08-02 21:14:00 [facility] COMPREHENSIVE METABOLIC PANEL 2022-08-02 21:14:00 [facility] CBC W/PLT COUNT & AUTO DIFFERENTIAL 2022-08-02 21:14:00 [facility] RPR 2022-08-02 21:14:00 [facility] HC LAB HIV-1 AG W/HIV-1&2 AB 2022-08-02 21:14:00 Donaldo Hightower [facility] C-REACTIVE PROTEIN 2022-08-02 21:14:00 Donaldo Hightower [facility] CBC W/PLT COUNT & AUTO DIFFERENTIAL 2022-08-02 21:14:00 Donaldo Hightower [facility] EKG-SCANNED 2022-08-02 00:00:00 Provider, Default Scanning [facility] CT HEAD WO CONTRAST 2022-08-01 23:52:15 Lorenza Lowry [facility] GALV ONLY - INFLUENZA A B RS V PCR 2022-08-01 18:28:00 Letitia Chambers [facility] TRANSTHORACIC ECHO (TTE) COMPLETE W/ CONTRAST 2022-08-01 14:42:00 Kylee Montez [facility] MAGNESIUM 2022-08-01 10:42:00 Lorenza Lowry [facility] BASIC METABOLIC PANEL (NA, K , CL, CO2, GLUCOSE, BUN, CREATININE, CA) 2022-08-01 10:42:00 Essence Lorenza [facility] CBC WITH DIFF 2022-08-01 10:42:00 Essence [facility] N-TERMINAL PRO-BNP 2022-08-01 10:42[facility]00 [facility] 2022-08-01 06:56[facility]22-07-31 22:31:36 [facility] 2022-07-31 20:52:00 Sav Rondon [facility] URINE DRUG (IMMUNOASSAY) - COMPREHENSIVE DRUG SCREEN W/O REFLEX 2022-07-31 20:52:00 Sav Rondon [facility] XR CHEST 1 VW 2022-07-31 18:45:17 Sav Rondon [facility] LIPASE 2022-07-31 17:58:00 Sav Rondon [facility] TROPONIN I 2022-07-31 17:58:00 Sav Rondon [facility] COMP. METABOLIC PANEL ([id number]) 2022-07-31 17:58:00 Sav Rondon [facility] CBC WITH DIFF 2022-07-31 17:58:00 Sav Rondon [facility] PROTHROMBIN TIME / INR 2022-07-31 17:58:00 Sav Rondon [facility] ACTIVATED PARTIAL THRMPLAS DAVID 2022-07-31 17:58:00 Sav Rondon [facility] N-TERMINAL PRO-BNP 2022-07-31 17:58:00 Sav Rondon [facility] HB ECG ROUTINE & RHYTHM STRIP 2022-07-31 17:46:28 Sav Rondon [facility] NOTICE OF PRIVACY PRACTICES 2022-07-31 17:35:38 Doctor Unassigned, [place] [facility] CONSENT/REFUSAL FOR DIAGNOSI S AND TREATMENT 2022-07-31 17:35:13 Doctor Unassigned, [place] [facility] PHOSPHORUS 2022-05-08 05:51:00 Shefali Azeem [facility] MAGNESIUM 2022-05-08 05:51:00 Shefali [facility] BASIC METABOLIC PANEL (NA, K , CL, CO2, GLUCOSE, BUN, CREATININE, CA) 2022-05-08 05:51:00 Shefali [facility] CBC WITH DIFF 2022-05-08 05:51:00 Shefali [facility] BASIC METABOLIC PANEL (NA, K , CL, CO2, GLUCOSE, BUN, CREATININE, CA) 2022-05-07 07:09:00 John Cintron [facility] CBC WITH DIFF 2022-05-07 07:09:00 John Cintron [facility] POCT GLUCOSE (AUTOMATED) 2022-05-07 01:16:00 Brandyn Ibrahim [facility] HB ABO GROUPING 2022-05-06 05:07:00 Ismael Dunn [facility] BASIC METABOLIC PANEL (NA, K , CL, CO2, GLUCOSE, BUN, CREATININE, CA) 2022-05-06 05:04:00 Shefali [facility] CBC WITH DIFF 2022-05-06 05:04:00 Shefali Azeem [facility] KEPPRA (LEVETIRACETAM) 2022-05-06 05:04:00 Azeem Meehan [facility] MR LUMBAR SPINE WO CONTRAST 2022-05-06 02:54:37 Ender Monet [facility] ELECTROENCEPHALOGRAM 2022-05-06 00:00:00 John Cintron [facility] BASIC METABOLIC PANEL (NA, K , CL, CO2, GLUCOSE, BUN, CREATININE, CA) 2022-05-05 07:57:00 Ismael Dunn [facility] CBC WITH DIFF 2022-05-05 07:57[facility]00 [facility] 2022-05-05 07:57:00 Ismael Dunn [facility] ACTIVATED PARTIAL THRMPLAS DAVID 2022-05-05 07:57:00 Ismael Dunn [facility] FIBRINOGEN 2022-05-05 07:57:00 Ismael Dunn [facility] EMERGENCY SERVICES AGREEMENT S AND AUTHORIZATIONS 2022-05-04 05:01:00 Doctor Unassigned, [place] [facility] VITAMIN D, 25-OH 2022-04-15 16:53:00 Sen [place] [facility] MR THORACIC SPINE WO CONTRAST 2022-04-15 11:56:19 Harshil [facility] MR CERVICAL SPINE WO CONTRAST 2022-04-15 11:20:00 Harshil [facility] BASIC METABOLIC PANEL (NA, K , CL, CO2, GLUCOSE, BUN, CREATININE, CA) 2022-04-15 10:36:00 Charmaine Morataya [facility] TEST, URINE 2022-04-15 04:39:00 Harshil [facility] URINE DRUG (IMMUNOASSAY) - COMPREHENSIVE DRUG SCREEN 2022-04-15 04:39:00 Harshil [facility] URINALYSIS 2022-04-15 04:39:00 Harshil [facility] TRANSTHORACIC ECHO (TTE) COMPLETE W/ CONTRAST 2022-04-14 16:37:03 Harshil [facility] KEPPRA (LEVETIRACETAM) 2022-04-14 15:30:00 Harshil [facility] MAGNESIUM 2022-04-14 10:03:00 Harshil [facility] BASIC METABOLIC PANEL (NA, K , CL, CO2, GLUCOSE, BUN, CREATININE, CA) 2022-04-14 10:03:00 Harshil [facility] MR LUMBAR SPINE WO CONTRAST 2022-04-14 02:48:12 Harshil [facility] MR STROKE BRAIN WO CONTRAST 2022-04-14 02:29:[address] [facility] [address] STROKE ANGIOGRAM HEAD 2022-04-13 18:40:00 Sapna Vargas [facility] CT STROKE ANGIOGRAM NECK 2022-04-13 18:40:00 Sapna Vargas [facility] CT STROKE HEAD WO CONTRAST 2022-04-13 18:36:00 Sapna Vargas [facility] TROPONIN I 2022-04-13 18:17:00 Sapna Vargas [facility] THYROID STIMULATING HORMONE 2022-04-13 18:17:00 Harshil [facility] BASIC METABOLIC PANEL (NA, K , CL, CO2, GLUCOSE, BUN, CREATININE, CA) 2022-04-13 18:17:00 Sapna Vargas [facility] LIPID PANEL ([id number])(TOTAL CHOLESTEROL, TRIGLYCERIDES, HDL) 2022-04-13 18:17:00 Harshil [facility] CBC WITHOUT DIFF 2022-04-13 18:17:00 Sapna Vargas [facility] GLYCOSYLATED HEMOGLOBIN (A1C) 2022-04-13 18:17:00 Harshil [facility] PROTHROMBIN TIME / INR 2022-04-13 18:17:00 Sapna Vargas [facility] ACTIVATED PARTIAL THRMPLAS DAVID 2022-04-13 18:17:00 Sapna Vargas [facility] COVID-19 (ID NOW RAPID TESTING) 2022-04-13 18:17:00 Sapna Vargas [facility] LAB ONLY COVID INTERPRETATION 2022-04-13 18:17:00 Sapna Vargas [facility] HB ECG ROUTINE & RHYTHM STRIP 2022-04-13 18:15:49 Sapna Vargas [facility] CONSENT/REFUSAL FOR DIAGNOSI S AND TREATMENT 2022-04-13 18:05:14 Doctor Unassigned, [place] [facility] HOSPITAL ADMISSION 2022-04-13 05:01:00 Doctor Unassigned, [place] [facility] SARS-COV-2 COVID-19 VACCINE 12 YRS+,0.3ML,IM (PFIZER - ROSE TOP) 2022-02-19 15:21:12 Doctor Unassigned, [place] [facility] URINE DRUG (IMMUNOASSAY) - COMPREHENSIVE DRUG SCREEN W/O REFLEX 2021-11-23 21:21:00 Nichelle Virk [facility] CT HEAD WO CONTRAST 2021-11-23 20:58:00 Nichelle Virk [facility] POCT TEST 2021-11-23 20:46:00 Nichelle Virk [facility] URINALYSIS 2021-11-23 20:43:00 Nichelle Virk [facility] LIPASE 2021-11-23 20:27:00 Nichelle Virk [facility] TROPONIN I 2021-11-23 20:27:00 Nichelle Virk [facility] COMP. METABOLIC PANEL ([id number]) 2021-11-23 20:27:00 Nichelle Virk [facility] CBC WITH DIFF 2021-11-23 20:27:00 Nichelle Virk [facility] POCT GLUCOSE (AUTOMATED) 2021-11-23 20:15:00 Doctor Unassigned, [place] [facility] SARS-COV-2 COVID-19 VACCINE,0.3ML,IM (PFIZER) 2021-05-24 14:23:12 Doctor Unassigned, [place] [facility] SARS-COV-2 COVID-19 VACCINE,0.3ML,IM (PFIZER) 2021-05-03 14:59:29 Doctor Unassigned, [place] [facility] EMERGENCY SERVICES AGREEMENT S AND AUTHORIZATIONS 2021-04-16 05:01:00 Doctor Unassigned, [place] [facility] URINALYSIS 2021-03-17 03:09:00 Fabrice Chakraborty [facility] XR CHEST 1 VW 2021-03-17 01:45:07 Fabrice Chakraborty [facility] TROPONIN I 2021-03-17 01:35:00 Fabrice Chakraborty [facility] COMP. METABOLIC PANEL ([id number]) 2021-03-17 01:35:00 [facility] CBC WITH DIFF 2021-03-17 01:35:00 Palmer [facility] N-TERMINAL PRO-BNP 2021-03-17 01:35:00 Palmer [facility] COVID-19 (ID NOW RAPID TESTING) 2021-03-17 00:58:00 Brian Bryan [facility] CONSENT/REFUSAL FOR DIAGNOSI S AND TREATMENT 2021-03-17 00:32:59 Doctor Unassigned, [place] [facility] COVID-19 (ID NOW RAPID TESTING) 2021-02-19 17:04:00 Anali Monroy [facility] CT ABDOMEN PELVIS W CONTRAST 2021-02-19 16:41:18 Anali Monroy [facility] LIPASE 2021-02-19 15:58:00 Anali Monroy [facility] COMP. METABOLIC PANEL ([id number]) 2021-02-19 15:58:00 Anali Monroy [facility] CBC WITH DIFF 2021-02-19 15:58:00 Anali Monroy [facility] URINALYSIS 2021-02-19 15:58:00 Anali Monroy [facility] NOTICE OF PRIVACY PRACTICES 2021-02-19 15:30:46 Doctor Unassigned, [place] [facility] CONSENT/REFUSAL FOR DIAGNOSI S AND TREATMENT 2021-02-19 15:30:30 Doctor Unassigned, [place] [facility] Plan of Care Planned Activity Planned Date Details Comments Source Future Scheduled Test 2025-08-02 00:00:00 Lipid panel (procedure) [code = 61183807] [facility] Future Scheduled Test 2025-08-02 00:00:00 Lipid panel (procedure) [code = 64428078] [facility] Future Scheduled Test 2025-08-02 00:00:00 Lipid panel (procedure) [code = 40099834] [facility] Future Scheduled Test 2025-08-02 00:00:00 Lipid panel (procedure) [code = 01331182] [facility] Future Scheduled Test 2025-08-02 00:00:00 Lipid panel (procedure) [code = 79827526] [facility] Future Scheduled Test 2025-08-02 00:00:00 Lipid panel (procedure) [code = 66533160] [facility] Future Scheduled Test 2025-08-02 00:00:00 Lipid panel (procedure) [code = 54609012] [facility] Future Scheduled Test 2025-08-02 00:00:00 Lipid panel (procedure) [code = 10722334] [facility] Future Scheduled Test 2025-08-02 00:00:00 Lipid panel (procedure) [code = 72235565] [facility] Future Scheduled Test 2025-08-02 00:00:00 Lipid panel (procedure) [code = 77967605] [facility] Future Scheduled Test 2025-08-02 00:00:00 Lipid panel (procedure) [code = 68396905] [facility] Future Scheduled Test 2025-08-02 00:00:00 Lipid panel (procedure) [code = 24530302] [facility] Future Scheduled Test 2025-08-02 00:00:00 Lipid panel (procedure) [code = 31067474] [facility] Future Scheduled Test 2025-08-02 00:00:00 Lipid panel (procedure) [code = 12123560] [facility] Future Scheduled Test 2025-08-02 00:00:00 Lipid panel (procedure) [code = 46368212] [facility] Future Scheduled Test 2025-08-02 00:00:00 Lipid panel (procedure) [code = 41452423] [facility] Future Scheduled Test 2025-08-02 00:00:00 Lipid panel (procedure) [code = 90291595] [facility] Future Scheduled Test 2025-08-02 00:00:00 Lipid panel (procedure) [code = 13615176] [facility] Future Scheduled Test 2025-08-02 00:00:00 Lipid panel (procedure) [code = 10555049] [facility] Future Scheduled Test 2025-08-02 00:00:00 Lipid panel (procedure) [code = 97151923] [facility] Future Scheduled Test 2025-08-02 00:00:00 Lipid panel (procedure) [code = 59846801] [facility] Future Scheduled Test 2025-08-02 00:00:00 Lipid panel (procedure) [code = 64007284] [facility] Future Scheduled Test 2025-08-02 00:00:00 Lipid panel (procedure) [code = 60123403] [facility] Future Scheduled Test 2025-08-02 00:00:00 Lipid panel (procedure) [code = 68495081] [facility] Future Scheduled Test 2025-08-02 00:00:00 Lipid panel (procedure) [code = 69306528] [facility] Future Scheduled Test 2025-08-02 00:00:00 Lipid panel (procedure) [code = 04049068] [facility] Future Scheduled Test 2025-08-02 00:00:00 Lipid panel (procedure) [code = 32065768] [facility] Future Scheduled Test 2025-08-02 00:00:00 Lipid panel (procedure) [code = 81966004] [facility] Future Scheduled Test 2025-08-02 00:00:00 Lipid panel (procedure) [code = 16055566] [facility] Future Scheduled Test 2025-08-02 00:00:00 Lipid panel (procedure) [code = 32745144] [facility] Future Scheduled Test 2025-08-02 00:00:00 Lipid panel (procedure) [code = 84469031] [facility] Future Scheduled Test 2025-08-02 00:00:00 Lipid panel (procedure) [code = 07019307] [facility] Future Scheduled Test 2025-08-02 00:00:00 Lipid panel (procedure) [code = 95534704] [facility] Future Scheduled Test 2025-08-02 00:00:00 Lipid panel (procedure) [code = 95296602] [facility] Future Scheduled Test 2025-08-02 00:00:00 Lipid panel (procedure) [code = 56760645] [facility] Future Scheduled Test 2025-08-02 00:00:00 Lipid panel (procedure) [code = 16734979] [facility] Future Scheduled Test 2025-08-02 00:00:00 Lipid panel (procedure) [code = 31020390] [facility] Future Scheduled Test 2025-08-02 00:00:00 Lipid panel (procedure) [code = 09687404] [facility] Future Scheduled Test 2025-08-02 00:00:00 Lipid panel (procedure) [code = 12565726] [facility] Future Scheduled Test 2025-08-02 00:00:00 Lipid panel (procedure) [code = 12442636] [facility] Future Scheduled Test 2025-08-02 00:00:00 Lipid panel (procedure) [code = 27977323] [facility] Future Scheduled Test 2025-08-02 00:00:00 Lipid panel (procedure) [code = 35039988] [facility] Future Scheduled Test 2025-08-02 00:00:00 Lipid panel (procedure) [code = 62657494] [facility] Future Scheduled Test 2025-08-02 00:00:00 Lipid panel (procedure) [code = 82937114] [facility] Future Scheduled Test 2025-08-02 00:00:00 Lipid panel (procedure) [code = 25945461] [facility] Future Scheduled Test 2025-08-02 00:00:00 Lipid panel (procedure) [code = 86323913] [facility] Future Scheduled Test 2025-08-02 00:00:00 Lipid panel (procedure) [code = 29851966] [facility] Future Scheduled Test 2025-08-02 00:00:00 Lipid panel (procedure) [code = 06027432] [facility] Future Scheduled Test 2025-08-02 00:00:00 Lipid panel (procedure) [code = 87703752] [facility] Future Scheduled Test 2025-08-02 00:00:00 Lipid panel (procedure) [code = 98623483] [facility] Future Scheduled Test 2025-08-02 00:00:00 Lipid panel (procedure) [code = 29399461] [facility] Future Scheduled Test 2025-08-02 00:00:00 Lipid panel (procedure) [code = 64610321] [facility] Future Scheduled Test 2025-08-02 00:00:00 Lipid panel (procedure) [code = 63078475] [facility] Future Scheduled Test 2025-08-02 00:00:00 Lipid panel (procedure) [code = 91338579] [facility] Future Scheduled Test 2025-08-02 00:00:00 Lipid panel (procedure) [code = 42966304] [facility] Future Scheduled Test 2025-08-02 00:00:00 Lipid panel (procedure) [code = 40081531] [facility] Future Scheduled Test 2025-08-02 00:00:00 Lipid panel (procedure) [code = 80059238] [facility] Future Scheduled Test 2024-05-28 00:00:00 Tobacco Cessation Counseling and Screening (12+) [code = Tobacco Cessation Counseling and Screening (12+)] [facility] Future Scheduled Test 2024-05-28 00:00:00 Tobacco Cessation Counseling and Screening (12+) [code = Tobacco Cessation Counseling and Screening (12+)] [facility] Future Scheduled Test 2024-05-28 00:00:00 Tobacco Cessation Counseling and Screening (12+) [code = Tobacco Cessation Counseling and Screening (12+)] [facility] Future Scheduled Test 2024-05-28 00:00:00 Tobacco Cessation Counseling and Screening (12+) [code = Tobacco Cessation Counseling and Screening (12+)] [facility] Future Scheduled Test 2024-05-28 00:00:00 Tobacco Cessation Counseling and Screening (12+) [code = Tobacco Cessation Counseling and Screening (12+)] [facility] Future Scheduled Test 2024-05-28 00:00:00 Tobacco Cessation Counseling and Screening (12+) [code = Tobacco Cessation Counseling and Screening (12+)] [facility] Scheduled Test 2024-05-28 00:00:00 Tobacco Cessation Counseling and Screening (12+) [code = Tobacco Cessation Counseling and Screening (12+)] [facility] Scheduled Test 2024-05-28 00:00:00 Tobacco Cessation Counseling and Screening (12+) [code = Tobacco Cessation Counseling and Screening (12+)] [facility] Scheduled Test 2024-05-28 00:00:00 Tobacco Cessation Counseling and Screening (12+) [code = Tobacco Cessation Counseling and Screening (12+)] [facility] Scheduled Test 2024-05-28 00:00:00 Tobacco Cessation Counseling and Screening (12+) [code = Tobacco Cessation Counseling and Screening (12+)] [facility] Scheduled Test 2024-05-28 00:00:00 Tobacco Cessation Counseling and Screening (12+) [code = Tobacco Cessation Counseling and Screening (12+)] [facility] Scheduled Test 2024-05-28 00:00:00 Tobacco Cessation Counseling and Screening (12+) [code = Tobacco Cessation Counseling and Screening (12+)] [facility] Scheduled Test 2024-05-28 00:00:00 Tobacco Cessation Counseling and Screening (12+) [code = Tobacco Cessation Counseling and Screening (12+)] [facility] Future Scheduled Test 2024-05-28 00:00:00 Tobacco Cessation Counseling and Screening (12+) [code = Tobacco Cessation Counseling and Screening (12+)] [facility] Scheduled Test 2024-05-28 00:00:00 Tobacco Cessation Counseling and Screening (12+) [code = Tobacco Cessation Counseling and Screening (12+)] [facility] Scheduled Test 2024-05-28 00:00:00 Tobacco Cessation Counseling and Screening (12+) [code = Tobacco Cessation Counseling and Screening (12+)] [facility] Scheduled Test 2024-05-28 00:00:00 Tobacco Cessation Counseling and Screening (12+) [code = Tobacco Cessation Counseling and Screening (12+)] [facility] Future Scheduled Test 2024-05-28 00:00:00 Tobacco Cessation Counseling and Screening (12+) [code = Tobacco Cessation Counseling and Screening (12+)] [facility] Scheduled Test 2024-05-28 00:00:00 Tobacco Cessation Counseling and Screening (12+) [code = Tobacco Cessation Counseling and Screening (12+)] [facility] Future Scheduled Test 2024-05-28 00:00:00 Tobacco Cessation Counseling and Screening (12+) [code = Tobacco Cessation Counseling and Screening (12+)] [facility] Scheduled Test 2024-05-28 00:00:00 Tobacco Cessation Counseling and Screening (12+) [code = Tobacco Cessation Counseling and Screening (12+)] [facility] Scheduled Test 2024-05-28 00:00:00 Tobacco Cessation Counseling and Screening (12+) [code = Tobacco Cessation Counseling and Screening (12+)] [facility] Future Scheduled Test 2024-05-28 00:00:00 Tobacco Cessation Counseling and Screening (12+) [code = Tobacco Cessation Counseling and Screening (12+)] [facility] Scheduled Test 2024-05-28 00:00:00 Tobacco Cessation Counseling and Screening (12+) [code = Tobacco Cessation Counseling and Screening (12+)] [facility] Scheduled Test 2024-05-28 00:00:00 Tobacco Cessation Counseling and Screening (12+) [code = Tobacco Cessation Counseling and Screening (12+)] [facility] Future Scheduled Test 2024-05-28 00:00:00 Tobacco Cessation Counseling and Screening (12+) [code = Tobacco Cessation Counseling and Screening (12+)] [facility] Future Scheduled Test 2024-05-28 00:00:00 Tobacco Cessation Counseling and Screening (12+) [code = Tobacco Cessation Counseling and Screening (12+)] [facility] Scheduled Test 2024-05-28 00:00:00 Tobacco Cessation Counseling and Screening (12+) [code = Tobacco Cessation Counseling and Screening (12+)] [facility] Future Scheduled Test 2024-05-28 00:00:00 Tobacco Cessation Counseling and Screening (12+) [code = Tobacco Cessation Counseling and Screening (12+)] [facility] Future Scheduled Test 2024-05-28 00:00:00 Tobacco Cessation Counseling and Screening (12+) [code = Tobacco Cessation Counseling and Screening (12+)] [facility] Future Scheduled Test 2024-05-28 00:00:00 Tobacco Cessation Counseling and Screening (12+) [code = Tobacco Cessation Counseling and Screening (12+)] [facility] Future Scheduled Test 2024-05-28 00:00:00 Tobacco Cessation Counseling and Screening (12+) [code = Tobacco Cessation Counseling and Screening (12+)] [facility] Scheduled Test 2024-05-26 00:00:00 Tobacco Cessation Counseling and Screening (12+) [code = Tobacco Cessation Counseling and Screening (12+)] [facility] Scheduled Test 2024-05-26 00:00:00 Tobacco Cessation Counseling and Screening (12+) [code = Tobacco Cessation Counseling and Screening (12+)] [facility] Future Scheduled Test 2023-07-20 00:00:00 DEPRESSION SCREENING (12+) [code = DEPRESSION SCREENING (12+)] [facility] Scheduled Test 2023-07-20 00:00:00 DEPRESSION SCREENING (12+) [code = DEPRESSION SCREENING (12+)] [facility] Scheduled Test 2023-07-20 00:00:00 DEPRESSION SCREENING (12+) [code = DEPRESSION SCREENING (12+)] [facility] Scheduled Test 2023-07-20 00:00:00 DEPRESSION SCREENING (12+) [code = DEPRESSION SCREENING (12+)] [facility] Scheduled Test 2023-07-20 00:00:00 DEPRESSION SCREENING (12+) [code = DEPRESSION SCREENING (12+)] [facility] Scheduled Test 2023-07-20 00:00:00 DEPRESSION SCREENING (12+) [code = DEPRESSION SCREENING (12+)] [facility] Scheduled Test 2023-07-20 00:00:00 DEPRESSION SCREENING (12+) [code = DEPRESSION SCREENING (12+)] [facility] Scheduled Test 2023-07-20 00:00:00 DEPRESSION SCREENING (12+) [code = DEPRESSION SCREENING (12+)] [facility] Scheduled Test 2023-07-20 00:00:00 DEPRESSION SCREENING (12+) [code = DEPRESSION SCREENING (12+)] [facility] Scheduled Test 2023-07-20 00:00:00 DEPRESSION SCREENING (12+) [code = DEPRESSION SCREENING (12+)] [facility] Scheduled Test 2023-07-20 00:00:00 DEPRESSION SCREENING (12+) [code = DEPRESSION SCREENING (12+)] [facility] Scheduled Test 2023-07-20 00:00:00 DEPRESSION SCREENING (12+) [code = DEPRESSION SCREENING (12+)] [facility] Scheduled Test 2023-07-20 00:00:00 DEPRESSION SCREENING (12+) [code = DEPRESSION SCREENING (12+)] [facility] Scheduled Test 2023-07-20 00:00:00 DEPRESSION SCREENING (12+) [code = DEPRESSION SCREENING (12+)] [facility] Scheduled Test 2023-07-20 00:00:00 DEPRESSION SCREENING (12+) [code = DEPRESSION SCREENING (12+)] [facility] Scheduled Test 2023-07-20 00:00:00 DEPRESSION SCREENING (12+) [code = DEPRESSION SCREENING (12+)] [facility] Scheduled Test 2023-07-20 00:00:00 DEPRESSION SCREENING (12+) [code = DEPRESSION SCREENING (12+)] [facility] Scheduled Test 2023-07-20 00:00:00 DEPRESSION SCREENING (12+) [code = DEPRESSION SCREENING (12+)] [facility] Scheduled Test 2023-07-20 00:00:00 DEPRESSION SCREENING (12+) [code = DEPRESSION SCREENING (12+)] [facility] Scheduled Test 2023-07-20 00:00:00 DEPRESSION SCREENING (12+) [code = DEPRESSION SCREENING (12+)] [facility] Scheduled Test 2023-07-20 00:00:00 DEPRESSION SCREENING (12+) [code = DEPRESSION SCREENING (12+)] [facility] Scheduled Test 2023-07-20 00:00:00 DEPRESSION SCREENING (12+) [code = DEPRESSION SCREENING (12+)] [facility] Scheduled Test 2023-07-20 00:00:00 DEPRESSION SCREENING (12+) [code = DEPRESSION SCREENING (12+)] [facility] Scheduled Test 2023-07-20 00:00:00 DEPRESSION SCREENING (12+) [code = DEPRESSION SCREENING (12+)] [facility] Scheduled Test 2023-03-20 00:00:00 INFLUENZA VACCINE (Season Ended) [code = INFLUENZA VACCINE (Season Ended)] [facility] Scheduled Test 2023-03-20 00:00:00 INFLUENZA VACCINE (Season Ended) [code = INFLUENZA VACCINE (Season Ended)] [facility] Scheduled Test 2023-03-20 00:00:00 INFLUENZA VACCINE (Season Ended) [code = INFLUENZA VACCINE (Season Ended)] [facility] Scheduled Test 2023-03-20 00:00:00 INFLUENZA VACCINE (Season Ended) [code = INFLUENZA VACCINE (Season Ended)] [facility] Scheduled Test 2023-03-20 00:00:00 INFLUENZA VACCINE (Season Ended) [code = INFLUENZA VACCINE (Season Ended)] [facility] Scheduled Test 2023-03-20 00:00:00 INFLUENZA VACCINE (Season Ended) [code = INFLUENZA VACCINE (Season Ended)] [facility] Scheduled Test 2023-03-20 00:00:00 Influenza Vaccine (Season Ended) [code = Influenza Vaccine (Season Ended)] [facility] Scheduled Test 2023-03-20 00:00:00 Influenza Vaccine (Season Ended) [code = Influenza Vaccine (Season Ended)] [facility] Scheduled Test 2023-03-20 00:00:00 Influenza Vaccine (#1) [code = Influenza Vaccine (#1)] [facility] Scheduled Test 2023-03-20 00:00:00 Influenza Vaccine (#1) [code = Influenza Vaccine (#1)] [facility] Scheduled Test 2023-03-20 00:00:00 Influenza Vaccine (#1) [code = Influenza Vaccine (#1)] [facility] Scheduled Test 2023-03-20 00:00:00 Influenza Vaccine (#1) [code = Influenza Vaccine (#1)] [facility] Scheduled Test 2023-03-20 00:00:00 COVID-19 VACCINE ( season) [code = COVID-19 VACCINE ( season)] [facility] Scheduled Test 2023-03-20 00:00:00 Influenza Vaccine (#1) [code = Influenza Vaccine (#1)] [facility] Scheduled Test 2023-03-20 00:00:00 COVID-19 VACCINE ( season) [code = COVID-19 VACCINE ()] [facility] Scheduled Test 2023-03-20 00:00:00 Influenza Vaccine (#1) [code = Influenza Vaccine (#1)] [facility] Scheduled Test 2023-03-20 00:00:00 COVID-19 VACCINE ( season) [code = COVID-19 VACCINE ()] [facility] Scheduled Test 2023-03-20 00:00:00 Influenza Vaccine (#1) [code = Influenza Vaccine (#1)] [facility] Scheduled Test 2023-03-20 00:00:00 COVID-19 VACCINE ( season) [code = COVID-19 VACCINE ()] [facility] Scheduled Test 2023-03-20 00:00:00 Influenza Vaccine (#1) [code = Influenza Vaccine (#1)] [facility] Scheduled Test 2023-03-20 00:00:00 Influenza Vaccine (#1) [code = Influenza Vaccine (#1)] [facility] Scheduled Test 2023-03-20 00:00:00 COVID-19 VACCINE ( season) [code = COVID-19 VACCINE ( season)] [facility] Scheduled Test 2023-03-20 00:00:00 Influenza Vaccine (#1) [code = Influenza Vaccine (#1)] [facility] Scheduled Test 2023-03-20 00:00:00 COVID-19 VACCINE ( season) [code = COVID-19 VACCINE ( season)] [facility] Scheduled Test 2023-03-20 00:00:00 Influenza Vaccine (#1) [code = Influenza Vaccine (#1)] [facility] Scheduled Test 2023-03-20 00:00:00 COVID-19 VACCINE ( season) [code = COVID-19 VACCINE ()] [facility] Scheduled Test 2023-03-20 00:00:00 Influenza Vaccine (#1) [code = Influenza Vaccine (#1)] [facility] Scheduled Test 2023-03-20 00:00:00 COVID-19 VACCINE () [code = COVID-19 VACCINE ()] [facility] Scheduled Test 2023-03-20 00:00:00 Influenza Vaccine (#1) [code = Influenza Vaccine (#1)] [facility] Scheduled Test 2023-03-20 00:00:00 COVID-19 VACCINE ( season) [code = COVID-19 VACCINE ()] [facility] Scheduled Test 2023-03-20 00:00:00 Influenza Vaccine (#1) [code = Influenza Vaccine (#1)] [facility] Scheduled Test 2023-03-20 00:00:00 COVID-19 VACCINE ( season) [code = COVID-19 VACCINE ( season)] [facility] Scheduled Test 2023-03-20 00:00:00 Influenza Vaccine (#1) [code = Influenza Vaccine (#1)] [facility] Scheduled Test 2023-03-20 00:00:00 COVID-19 VACCINE ( season) [code = COVID-19 VACCINE ( season)] [facility] Scheduled Test 2023-03-20 00:00:00 Influenza Vaccine (#1) [code = Influenza Vaccine (#1)] [facility] Scheduled Test 2023-03-20 00:00:00 Influenza Vaccine (#1) [code = Influenza Vaccine (#1)] [facility] Scheduled Test 2023-03-20 00:00:00 COVID-19 VACCINE ( season) [code = COVID-19 VACCINE ()] [facility] Scheduled Test 2023-03-20 00:00:00 Influenza Vaccine (#1) [code = Influenza Vaccine (#1)] [facility] Scheduled Test 2023-03-20 00:00:00 COVID-19 VACCINE () [code = COVID-19 VACCINE ()] [facility] Scheduled Test 2023-03-20 00:00:00 Influenza Vaccine (#1) [code = Influenza Vaccine (#1)] [facility] Scheduled Test 2023-03-20 00:00:00 COVID-19 VACCINE ( season) [code = COVID-19 VACCINE ()] [facility] Scheduled Test 2023-03-20 00:00:00 Influenza Vaccine (#1) [code = Influenza Vaccine (#1)] [facility] Scheduled Test 2023-03-20 00:00:00 COVID-19 VACCINE ( season) [code = COVID-19 VACCINE ( season)] [facility] Scheduled Test 2023-03-20 00:00:00 Influenza Vaccine (#1) [code = Influenza Vaccine (#1)] [facility] Scheduled Test 2023-03-20 00:00:00 COVID-19 VACCINE ( season) [code = COVID-19 VACCINE ()] [facility] Scheduled Test 2023-03-20 00:00:00 Influenza Vaccine (#1) [code = Influenza Vaccine (#1)] [facility] Scheduled Test 2023-03-20 00:00:00 COVID-19 VACCINE ( season) [code = COVID-19 VACCINE ( season)] [facility] Scheduled Test 2023-03-20 00:00:00 Influenza Vaccine (#1) [code = Influenza Vaccine (#1)] [facility] Scheduled Test 2023-03-20 00:00:00 Influenza Vaccine (#1) [code = Influenza Vaccine (#1)] [facility] Scheduled Test 2023-03-20 00:00:00 COVID-19 VACCINE ( season) [code = COVID-19 VACCINE ()] [facility] Scheduled Test 2023-03-20 00:00:00 Influenza Vaccine (#1) [code = Influenza Vaccine (#1)] [facility] Scheduled Test 2023-03-20 00:00:00 COVID-19 VACCINE ( season) [code = COVID-19 VACCINE ()] [facility] Scheduled Test 2023-03-20 00:00:00 Influenza Vaccine (#1) [code = Influenza Vaccine (#1)] [facility] Scheduled Test 2023-03-20 00:00:00 COVID-19 VACCINE ( season) [code = COVID-19 VACCINE ( season)] [facility] Scheduled Test 2023-03-20 00:00:00 Influenza Vaccine (#1) [code = Influenza Vaccine (#1)] [facility] Scheduled Test 2023-03-20 00:00:00 COVID-19 VACCINE ( season) [code = COVID-19 VACCINE ( season)] [facility] Scheduled Test 2023-03-20 00:00:00 Influenza Vaccine (#1) [code = Influenza Vaccine (#1)] [facility] Scheduled Test 2023-03-20 00:00:00 Influenza Vaccine (#1) [code = Influenza Vaccine (#1)] [facility] Scheduled Test 2023-03-20 00:00:00 COVID-19 VACCINE ( season) [code = COVID-19 VACCINE ( season)] [facility] Scheduled Test 2023-03-20 00:00:00 Influenza Vaccine (#1) [code = Influenza Vaccine (#1)] [facility] Scheduled Test 2023-03-20 00:00:00 COVID-19 VACCINE ( season) [code = COVID-19 VACCINE ()] [facility] Scheduled Test 2023-03-20 00:00:00 Influenza Vaccine (#1) [code = Influenza Vaccine (#1)] [facility] Scheduled Test 2023-03-20 00:00:00 COVID-19 VACCINE ( season) [code = COVID-19 VACCINE ()] [facility] Scheduled Test 2023-03-20 00:00:00 Influenza Vaccine (#1) [code = Influenza Vaccine (#1)] [facility] Scheduled Test 2023-03-20 00:00:00 COVID-19 VACCINE ( season) [code = COVID-19 VACCINE ()] [facility] Scheduled Test 2023-03-20 00:00:00 Influenza Vaccine (#1) [code = Influenza Vaccine (#1)] [facility] Scheduled Test 2023-03-20 00:00:00 Influenza Vaccine (#1) [code = Influenza Vaccine (#1)] [facility] Scheduled Test 2023-03-20 00:00:00 Influenza Vaccine (#1) [code = Influenza Vaccine (#1)] [facility] Scheduled Test 2023-03-20 00:00:00 Influenza Vaccine (#1) [code = Influenza Vaccine (#1)] [facility] Scheduled Test 2023-03-20 00:00:00 Influenza Vaccine (#1) [code = Influenza Vaccine (#1)] [facility] Scheduled Test 2023-03-20 00:00:00 Influenza Vaccine (#1) [code = Influenza Vaccine (#1)] [facility] Scheduled Test 2023-03-20 00:00:00 Influenza Vaccine (#1) [code = Influenza Vaccine (#1)] [facility] Scheduled Test 2023-03-20 00:00:00 Influenza Vaccine (#1) [code = Influenza Vaccine (#1)] [facility] Scheduled Test 2023-03-20 00:00:00 Influenza Vaccine (#1) [code = Influenza Vaccine (#1)] [facility] Scheduled Test 2023-03-20 00:00:00 Influenza Vaccine (#1) [code = Influenza Vaccine (#1)] [facility] Scheduled Test 2023-03-20 00:00:00 Influenza Vaccine (#1) [code = Influenza Vaccine (#1)] [facility] Scheduled Test 2023-03-20 00:00:00 Influenza Vaccine (#1) [code = Influenza Vaccine (#1)] [facility] Scheduled Test 2023-03-20 00:00:00 COVID-19 VACCINE ( season) [code = COVID-19 VACCINE ( season)] [facility] Scheduled Test 2023-03-20 00:00:00 COVID-19 VACCINE ( season) [code = COVID-19 VACCINE ( season)] [facility] Scheduled Test 2023-03-20 00:00:00 Influenza Vaccine (#1) [code = Influenza Vaccine (#1)] [facility] Scheduled Test 2022-07-20 00:00:00 DEPRESSION SCREENING (12+) [code = DEPRESSION SCREENING (12+)] [facility] Scheduled Test 2022-07-20 00:00:00 DEPRESSION SCREENING (12+) [code = DEPRESSION SCREENING (12+)] [facility] Scheduled Test 2022-07-20 00:00:00 DEPRESSION SCREENING (12+) [code = DEPRESSION SCREENING (12+)] [facility] Scheduled Test 2022-07-20 00:00:00 DEPRESSION SCREENING (12+) [code = DEPRESSION SCREENING (12+)] [facility] Scheduled Test 2022-07-20 00:00:00 DEPRESSION SCREENING (12+) [code = DEPRESSION SCREENING (12+)] [facility] Scheduled Test 2022-07-20 00:00:00 DEPRESSION SCREENING (12+) [code = DEPRESSION SCREENING (12+)] [facility] Scheduled Test 2022-07-20 00:00:00 DEPRESSION SCREENING (12+) [code = DEPRESSION SCREENING (12+)] [facility] Scheduled Test 2022-07-20 00:00:00 DEPRESSION SCREENING (12+) [code = DEPRESSION SCREENING (12+)] [facility] Scheduled Test 2022-07-20 00:00:00 DEPRESSION SCREENING (12+) [code = DEPRESSION SCREENING (12+)] [facility] Scheduled Test 2022-07-20 00:00:00 DEPRESSION SCREENING (12+) [code = DEPRESSION SCREENING (12+)] [facility] Scheduled Test 2022-07-20 00:00:00 DEPRESSION SCREENING (12+) [code = DEPRESSION SCREENING (12+)] [facility] Scheduled Test 2022-07-20 00:00:00 DEPRESSION SCREENING (12+) [code = DEPRESSION SCREENING (12+)] [facility] Scheduled Test 2022-07-20 00:00:00 DEPRESSION SCREENING (12+) [code = DEPRESSION SCREENING (12+)] [facility] Scheduled Test 2022-07-20 00:00:00 DEPRESSION SCREENING (12+) [code = DEPRESSION SCREENING (12+)] [facility] Scheduled Test 2022-07-20 00:00:00 DEPRESSION SCREENING (12+) [code = DEPRESSION SCREENING (12+)] [facility] Scheduled Test 2022-07-20 00:00:00 DEPRESSION SCREENING (12+) [code = DEPRESSION SCREENING (12+)] [facility] Scheduled Test 2022-07-20 00:00:00 DEPRESSION SCREENING (12+) [code = DEPRESSION SCREENING (12+)] [facility] Scheduled Test 2022-07-20 00:00:00 DEPRESSION SCREENING (12+) [code = DEPRESSION SCREENING (12+)] [facility] Scheduled Test 2022-07-20 00:00:00 DEPRESSION SCREENING (12+) [code = DEPRESSION SCREENING (12+)] [facility] Scheduled Test 2022-07-20 00:00:00 DEPRESSION SCREENING (12+) [code = DEPRESSION SCREENING (12+)] [facility] Scheduled Test 2022-07-20 00:00:00 DEPRESSION SCREENING (12+) [code = DEPRESSION SCREENING (12+)] [facility] Scheduled Test 2022-07-20 00:00:00 DEPRESSION SCREENING (12+) [code = DEPRESSION SCREENING (12+)] [facility] Scheduled Test 2022-07-20 00:00:00 DEPRESSION SCREENING (12+) [code = DEPRESSION SCREENING (12+)] [facility] Scheduled Test 2022-07-20 00:00:00 DEPRESSION SCREENING (12+) [code = DEPRESSION SCREENING (12+)] [facility] Scheduled Test 2022-07-20 00:00:00 DEPRESSION SCREENING (12+) [code = DEPRESSION SCREENING (12+)] [facility] Scheduled Test 2022-07-20 00:00:00 DEPRESSION SCREENING (12+) [code = DEPRESSION SCREENING (12+)] [facility] Scheduled Test 2022-07-20 00:00:00 DEPRESSION SCREENING (12+) [code = DEPRESSION SCREENING (12+)] [facility] Scheduled Test 2022-07-20 00:00:00 DEPRESSION SCREENING (12+) [code = DEPRESSION SCREENING (12+)] [facility] Scheduled Test 2022-07-20 00:00:00 DEPRESSION SCREENING (12+) [code = DEPRESSION SCREENING (12+)] [facility] Scheduled Test 2022-07-20 00:00:00 DEPRESSION SCREENING (12+) [code = DEPRESSION SCREENING (12+)] [facility] Scheduled Test 2022-07-20 00:00:00 DEPRESSION SCREENING (12+) [code = DEPRESSION SCREENING (12+)] [facility] Scheduled Test 2022-07-20 00:00:00 DEPRESSION SCREENING (12+) [code = DEPRESSION SCREENING (12+)] [facility] Scheduled Test 2022-07-20 00:00:00 DEPRESSION SCREENING (12+) [code = DEPRESSION SCREENING (12+)] [facility] Scheduled Test 2022-06-21 00:00:00 COVID-19 VACCINE (4 - Booster for Pfizer series) [code = COVID-19 VACCINE (4 - Booster for Pfizer series)] [facility] Scheduled Test 2022-06-21 00:00:00 COVID-19 VACCINE (4 - Booster for Pfizer series) [code = COVID-19 VACCINE (4 - Booster for Pfizer series)] [facility] Scheduled Test 2022-06-21 00:00:00 COVID-19 VACCINE (4 - Booster for Pfizer series) [code = COVID-19 VACCINE (4 - Booster for Pfizer series)] [facility] Scheduled Test 2022-06-21 00:00:00 COVID-19 VACCINE (4 - Booster for Pfizer series) [code = COVID-19 VACCINE (4 - Booster for Pfizer series)] [facility] Scheduled Test 2022-04-16 00:00:00 COVID-19 VACCINE (4 - Booster for Pfizer series) [code = COVID-19 VACCINE (4 - Booster for Pfizer series)] [facility] Scheduled Test 2022-04-16 00:00:00 COVID-19 VACCINE (4 - Booster for Pfizer series) [code = COVID-19 VACCINE (4 - Booster for Pfizer series)] [facility] Scheduled Test 2022-04-16 00:00:00 COVID-19 VACCINE (4 - Booster for Pfizer series) [code = COVID-19 VACCINE (4 - Booster for Pfizer series)] [facility] Scheduled Test 2022-04-16 00:00:00 COVID-19 VACCINE (4 - Booster for Pfizer series) [code = COVID-19 VACCINE (4 - Booster for Pfizer series)] [facility] Scheduled Test 2022-04-16 00:00:00 COVID-19 VACCINE (4 - Booster for Pfizer series) [code = COVID-19 VACCINE (4 - Booster for Pfizer series)] [facility] Scheduled Test 2022-04-16 00:00:00 COVID-19 VACCINE (4 - Booster for Pfizer series) [code = COVID-19 VACCINE (4 - Booster for Pfizer series)] [facility] Scheduled Test 2022-04-16 00:00:00 COVID-19 VACCINE (4 - Booster for Pfizer series) [code = COVID-19 VACCINE (4 - Booster for Pfizer series)] [facility] Scheduled Test 2022-04-16 00:00:00 COVID-19 VACCINE (4 - Booster for Pfizer series) [code = COVID-19 VACCINE (4 - Booster for Pfizer series)] [facility] Scheduled Test 2022-04-16 00:00:00 COVID-19 VACCINE (4 - Booster for Pfizer series) [code = COVID-19 VACCINE (4 - Booster for Pfizer series)] [facility] Scheduled Test 2022-04-16 00:00:00 COVID-19 VACCINE (4 - Booster for Pfizer series) [code = COVID-19 VACCINE (4 - Booster for Pfizer series)] [facility] Scheduled Test 2022-04-16 00:00:00 COVID-19 VACCINE (4 - Booster for Pfizer series) [code = COVID-19 VACCINE (4 - Booster for Pfizer series)] [facility] Scheduled Test 2022-04-16 00:00:00 COVID-19 VACCINE (4 - Booster for Pfizer series) [code = COVID-19 VACCINE (4 - Booster for Pfizer series)] [facility] Scheduled Test 2022-04-16 00:00:00 COVID-19 VACCINE (4 - Booster for Pfizer series) [code = COVID-19 VACCINE (4 - Booster for Pfizer series)] [facility] Scheduled Test 2022-04-16 00:00:00 COVID-19 VACCINE (4 - Booster for Pfizer series) [code = COVID-19 VACCINE (4 - Booster for Pfizer series)] [facility] Scheduled Test 2022-04-16 00:00:00 COVID-19 VACCINE (4 - Booster for Pfizer series) [code = COVID-19 VACCINE (4 - Booster for Pfizer series)] [facility] Scheduled Test 2022-04-16 00:00:00 COVID-19 VACCINE (4 - Booster for Pfizer series) [code = COVID-19 VACCINE (4 - Booster for Pfizer series)] [facility] Scheduled Test 2022-04-16 00:00:00 COVID-19 VACCINE (4 - Booster for Pfizer series) [code = COVID-19 VACCINE (4 - Booster for Pfizer series)] [facility] Scheduled Test 2022-04-16 00:00:00 COVID-19 VACCINE (4 - Booster for Pfizer series) [code = COVID-19 VACCINE (4 - Booster for Pfizer series)] [facility] Scheduled Test 2022-04-16 00:00:00 COVID-19 VACCINE (4 - Booster for Pfizer series) [code = COVID-19 VACCINE (4 - Booster for Pfizer series)] [facility] Scheduled Test 2022-04-16 00:00:00 COVID-19 VACCINE (4 - Booster for Pfizer series) [code = COVID-19 VACCINE (4 - Booster for Pfizer series)] [facility] Scheduled Test 2022-04-16 00:00:00 COVID-19 VACCINE (4 - Pfizer series) [code = COVID-19 VACCINE (4 - Pfizer series)] [facility] Scheduled Test 2022-04-16 00:00:00 COVID-19 VACCINE (4 - Pfizer series) [code = COVID-19 VACCINE (4 - Pfizer series)] [facility] Scheduled Test 2022-04-16 00:00:00 COVID-19 VACCINE (4 - Pfizer series) [code = COVID-19 VACCINE (4 - Pfizer series)] [facility] Scheduled Test 2022-04-16 00:00:00 COVID-19 VACCINE (4 - Pfizer series) [code = COVID-19 VACCINE (4 - Pfizer series)] [facility] Scheduled Test 2022-04-16 00:00:00 COVID-19 VACCINE (4 - Booster for Pfizer series) [code = COVID-19 VACCINE (4 - Booster for Pfizer series)] [facility] Future Scheduled Test 2022-04-16 00:00:00 COVID-19 VACCINE (4 - Pfizer series) [code = COVID-19 VACCINE (4 - Pfizer series)] [facility] Scheduled Test 2022-03-20 00:00:00 INFLUENZA VACCINE (#1) [code = INFLUENZA VACCINE (#1)] [facility] Scheduled Test 2022-03-20 00:00:00 INFLUENZA VACCINE (#1) [code = INFLUENZA VACCINE (#1)] [facility] Future Scheduled Test 2022-03-20 00:00:00 INFLUENZA VACCINE (#1) [code = INFLUENZA VACCINE (#1)] [facility] Scheduled Test 2022-03-20 00:00:00 INFLUENZA VACCINE (#1) [code = INFLUENZA VACCINE (#1)] [facility] Future Scheduled Test 2022-01-14 00:00:00 SHINGLES VACCINES (1 of 2) [code = SHINGLES VACCINES (1 of 2)] [facility] Scheduled Test 2022-01-14 00:00:00 SHINGLES VACCINES (1 of 2) [code = SHINGLES VACCINES (1 of 2)] [facility] Scheduled Test 2022-01-14 00:00:00 SHINGLES VACCINES (1 of 2) [code = SHINGLES VACCINES (1 of 2)] [facility] Scheduled Test 2022-01-14 00:00:00 SHINGLES VACCINES (1 of 2) [code = SHINGLES VACCINES (1 of 2)] [facility] Scheduled Test 2022-01-14 00:00:00 SHINGLES VACCINES (1 of 2) [code = SHINGLES VACCINES (1 of 2)] [facility] Scheduled Test 2022-01-14 00:00:00 SHINGLES VACCINES (1 of 2) [code = SHINGLES VACCINES (1 of 2)] [facility] Scheduled Test 2022-01-14 00:00:00 SHINGLES VACCINES (1 of 2) [code = SHINGLES VACCINES (1 of 2)] [facility] Scheduled Test 2022-01-14 00:00:00 SHINGLES VACCINES (1 of 2) [code = SHINGLES VACCINES (1 of 2)] [facility] Scheduled Test 2022-01-14 00:00:00 SHINGLES VACCINES (1 of 2) [code = SHINGLES VACCINES (1 of 2)] [facility] Future Scheduled Test 2022-01-14 00:00:00 SHINGLES VACCINES (1 of 2) [code = SHINGLES VACCINES (1 of 2)] [facility] Scheduled Test 2022-01-14 00:00:00 SHINGLES VACCINES (1 of 2) [code = SHINGLES VACCINES (1 of 2)] [facility] Scheduled Test 2022-01-14 00:00:00 SHINGLES VACCINES (1 of 2) [code = SHINGLES VACCINES (1 of 2)] [facility] Scheduled Test 2022-01-14 00:00:00 SHINGLES VACCINES (1 of 2) [code = SHINGLES VACCINES (1 of 2)] [facility] Scheduled Test 2022-01-14 00:00:00 SHINGLES VACCINES (1 of 2) [code = SHINGLES VACCINES (1 of 2)] [facility] Scheduled Test 2022-01-14 00:00:00 SHINGLES VACCINES (1 of 2) [code = SHINGLES VACCINES (1 of 2)] [facility] Scheduled Test 2022-01-14 00:00:00 Screening for malignant neoplasm of lung (procedure) [code = [id number]] [facility] Scheduled Test 2022-01-14 00:00:00 SHINGLES VACCINES (1 of 2) [code = SHINGLES VACCINES (1 of 2)] [facility] Scheduled Test 2022-01-14 00:00:00 Screening for malignant neoplasm of lung (procedure) [code = [id number]] [facility] Scheduled Test 2022-01-14 00:00:00 SHINGLES VACCINES (1 of 2) [code = SHINGLES VACCINES (1 of 2)] [facility] Scheduled Test 2022-01-14 00:00:00 Screening for malignant neoplasm of lung (procedure) [code = [id number]] [facility] Future Scheduled Test 2022-01-14 00:00:00 SHINGLES VACCINES (1 of 2) [code = SHINGLES VACCINES (1 of 2)] [facility] Scheduled Test 2022-01-14 00:00:00 Screening for malignant neoplasm of lung (procedure) [code = [id number]] [facility] Scheduled Test 2022-01-14 00:00:00 SHINGLES VACCINES (1 of 2) [code = SHINGLES VACCINES (1 of 2)] [facility] Scheduled Test 2022-01-14 00:00:00 Screening for malignant neoplasm of lung (procedure) [code = [id number]] [facility] Scheduled Test 2022-01-14 00:00:00 SHINGLES VACCINES (1 of 2) [code = SHINGLES VACCINES (1 of 2)] [facility] Scheduled Test 2022-01-14 00:00:00 Screening for malignant neoplasm of lung (procedure) [code = [id number]] [facility] Future Scheduled Test 2022-01-14 00:00:00 SHINGLES VACCINES (1 of 2) [code = SHINGLES VACCINES (1 of 2)] [facility] Scheduled Test 2022-01-14 00:00:00 Screening for malignant neoplasm of lung (procedure) [code = [id number]] [facility] Scheduled Test 2022-01-14 00:00:00 SHINGLES VACCINES (1 of 2) [code = SHINGLES VACCINES (1 of 2)] [facility] Scheduled Test 2022-01-14 00:00:00 Screening for malignant neoplasm of lung (procedure) [code = [id number]] [facility] Scheduled Test 2022-01-14 00:00:00 SHINGLES VACCINES (1 of 2) [code = SHINGLES VACCINES (1 of 2)] [facility] Scheduled Test 2022-01-14 00:00:00 Screening for malignant neoplasm of lung (procedure) [code = [id number]] [facility] Scheduled Test 2022-01-14 00:00:00 SHINGLES VACCINES (1 of 2) [code = SHINGLES VACCINES (1 of 2)] [facility] Scheduled Test 2022-01-14 00:00:00 Screening for malignant neoplasm of lung (procedure) [code = [id number]] [facility] Scheduled Test 2022-01-14 00:00:00 SHINGLES VACCINES (1 of 2) [code = SHINGLES VACCINES (1 of 2)] [facility] Scheduled Test 2022-01-14 00:00:00 Screening for malignant neoplasm of lung (procedure) [code = [id number]] [facility] Scheduled Test 2022-01-14 00:00:00 SHINGLES VACCINES (1 of 2) [code = SHINGLES VACCINES (1 of 2)] [facility] Scheduled Test 2022-01-14 00:00:00 Screening for malignant neoplasm of lung (procedure) [code = [id number]] [facility] Scheduled Test 2022-01-14 00:00:00 SHINGLES VACCINES (1 of 2) [code = SHINGLES VACCINES (1 of 2)] [facility] Scheduled Test 2022-01-14 00:00:00 Screening for malignant neoplasm of lung (procedure) [code = [id number]] [facility] Scheduled Test 2022-01-14 00:00:00 SHINGLES VACCINES (1 of 2) [code = SHINGLES VACCINES (1 of 2)] [facility] Scheduled Test 2022-01-14 00:00:00 Screening for malignant neoplasm of lung (procedure) [code = 983831279] [facility] Scheduled Test 2022-01-14 00:00:00 SHINGLES VACCINES (1 of 2) [code = SHINGLES VACCINES (1 of 2)] [facility] Scheduled Test 2022-01-14 00:00:00 Screening for malignant neoplasm of lung (procedure) [code = 646647435] [facility] Scheduled Test 2022-01-14 00:00:00 SHINGLES VACCINES (1 of 2) [code = SHINGLES VACCINES (1 of 2)] [facility] Future Scheduled Test 2022-01-14 00:00:00 Screening for malignant neoplasm of lung (procedure) [code = [id number]] [facility] Future Scheduled Test 2022-01-14 00:00:00 SHINGLES VACCINES (1 of 2) [code = SHINGLES VACCINES (1 of 2)] [facility] Scheduled Test 2022-01-14 00:00:00 Screening for malignant neoplasm of lung (procedure) [code = 733290671] [facility] Future Scheduled Test 2022-01-14 00:00:00 SHINGLES VACCINES (1 of 2) [code = SHINGLES VACCINES (1 of 2)] [facility] Future Scheduled Test 2022-01-14 00:00:00 Screening for malignant neoplasm of lung (procedure) [code = 563943987] [facility] Scheduled Test 2022-01-14 00:00:00 SHINGLES VACCINES (1 of 2) [code = SHINGLES VACCINES (1 of 2)] [facility] Scheduled Test 2022-01-14 00:00:00 Screening for malignant neoplasm of lung (procedure) [code = [id number]] [facility] Scheduled Test 2022-01-14 00:00:00 Screening for malignant neoplasm of lung (procedure) [code = 761432124] [facility] Scheduled Test 2022-01-14 00:00:00 SHINGLES VACCINES (1 of 2) [code = SHINGLES VACCINES (1 of 2)] [facility] Scheduled Test 2022-01-14 00:00:00 SHINGLES VACCINES (1 of 2) [code = SHINGLES VACCINES (1 of 2)] [facility] Scheduled Test 2022-01-14 00:00:00 Screening for malignant neoplasm of lung (procedure) [code = 846426059] [facility] Scheduled Test 2022-01-14 00:00:00 SHINGLES VACCINES (1 of 2) [code = SHINGLES VACCINES (1 of 2)] [facility] Scheduled Test 2022-01-14 00:00:00 Screening for malignant neoplasm of lung (procedure) [code = [id number]] [facility] Scheduled Test 2022-01-14 00:00:00 SHINGLES VACCINES (1 of 2) [code = SHINGLES VACCINES (1 of 2)] [facility] Scheduled Test 2022-01-14 00:00:00 Screening for malignant neoplasm of lung (procedure) [code = 493755090] [facility] Scheduled Test 2022-01-14 00:00:00 SHINGLES VACCINES (1 of 2) [code = SHINGLES VACCINES (1 of 2)] [facility] Scheduled Test 2022-01-14 00:00:00 Screening for malignant neoplasm of lung (procedure) [code = [id number]] [facility] Scheduled Test 2022-01-14 00:00:00 Screening for malignant neoplasm of lung (procedure) [code = 112388037] [facility] Future Scheduled Test 2022-01-14 00:00:00 SHINGLES VACCINES (1 of 2) [code = SHINGLES VACCINES (1 of 2)] [facility] Scheduled Test 2022-01-14 00:00:00 SHINGLES VACCINES (1 of 2) [code = SHINGLES VACCINES (1 of 2)] [facility] Scheduled Test 2022-01-14 00:00:00 Screening for malignant neoplasm of lung (procedure) [code = [id number]] [facility] Future Scheduled Test 2022-01-14 00:00:00 SHINGLES VACCINES (1 of 2) [code = SHINGLES VACCINES (1 of 2)] [facility] Scheduled Test 2022-01-14 00:00:00 Screening for malignant neoplasm of lung (procedure) [code = 627515051] [facility] Scheduled Test 2022-01-14 00:00:00 SHINGLES VACCINES (1 of 2) [code = SHINGLES VACCINES (1 of 2)] [facility] Scheduled Test 2022-01-14 00:00:00 Screening for malignant neoplasm of lung (procedure) [code = 334421577] [facility] Scheduled Test 2022-01-14 00:00:00 SHINGLES VACCINES (1 of 2) [code = SHINGLES VACCINES (1 of 2)] [facility] Scheduled Test 2022-01-14 00:00:00 Screening for malignant neoplasm of lung (procedure) [code = [id number]] [facility] Future Scheduled Test 2022-01-14 00:00:00 SHINGLES VACCINES (1 of 2) [code = SHINGLES VACCINES (1 of 2)] [facility] Future Scheduled Test 2022-01-14 00:00:00 Screening for malignant neoplasm of lung (procedure) [code = 519029790] [facility] Future Scheduled Test 2022-01-14 00:00:00 SHINGLES VACCINES (1 of 2) [code = SHINGLES VACCINES (1 of 2)] [facility] Future Scheduled Test 2022-01-14 00:00:00 Screening for malignant neoplasm of lung (procedure) [code = [id number]] [facility] Future Scheduled Test 2022-01-14 00:00:00 SHINGLES VACCINES (1 of 2) [code = SHINGLES VACCINES (1 of 2)] [facility] Future Scheduled Test 2022-01-14 00:00:00 Screening for malignant neoplasm of lung (procedure) [code = 567381530] [facility] Future Scheduled Test 2022-01-14 00:00:00 SHINGLES VACCINES (1 of 2) [code = SHINGLES VACCINES (1 of 2)] [facility] Future Scheduled Test 2022-01-14 00:00:00 SHINGLES VACCINES (1 of 2) [code = SHINGLES VACCINES (1 of 2)] [facility] Scheduled Test 2022-01-14 00:00:00 SHINGLES VACCINES (1 of 2) [code = SHINGLES VACCINES (1 of 2)] [facility] Scheduled Test 2022-01-14 00:00:00 Screening for malignant neoplasm of lung (procedure) [code = 614791710] [facility] Scheduled Test 2022-01-14 00:00:00 SHINGLES VACCINES (1 of 2) [code = SHINGLES VACCINES (1 of 2)] [facility] Future Scheduled Test 2022-01-14 00:00:00 Screening for malignant neoplasm of lung (procedure) [code = 303794434] [facility] Future Scheduled Test 2022-01-14 00:00:00 SHINGLES VACCINES (1 of 2) [code = SHINGLES VACCINES (1 of 2)] [facility] Future Scheduled Test 2022-01-14 00:00:00 Screening for malignant neoplasm of lung (procedure) [code = [id number]] [facility] Future Scheduled Test 2022-01-14 00:00:00 SHINGLES VACCINES (1 of 2) [code = SHINGLES VACCINES (1 of 2)] [facility] Scheduled Test 2022-01-14 00:00:00 Screening for malignant neoplasm of lung (procedure) [code = 392156525] [facility] Future Scheduled Test 2022-01-14 00:00:00 SHINGLES VACCINES (1 of 2) [code = SHINGLES VACCINES (1 of 2)] [facility] Future Scheduled Test 2022-01-14 00:00:00 Screening for malignant neoplasm of lung (procedure) [code = [id number]] [facility] Future Scheduled Test 2022-01-14 00:00:00 SHINGLES VACCINES (1 of 2) [code = SHINGLES VACCINES (1 of 2)] [facility] Future Scheduled Test 2022-01-14 00:00:00 Screening for malignant neoplasm of lung (procedure) [code = [id number]] [facility] Scheduled Test 2022-01-14 00:00:00 SHINGLES VACCINES (1 of 2) [code = SHINGLES VACCINES (1 of 2)] [facility] Future Scheduled Test 2022-01-14 00:00:00 Screening for malignant neoplasm of lung (procedure) [code = [id number]] [facility] Scheduled Test 2022-01-14 00:00:00 SHINGLES VACCINES (1 of 2) [code = SHINGLES VACCINES (1 of 2)] [facility] Scheduled Test 2022-01-14 00:00:00 Screening for malignant neoplasm of lung (procedure) [code = 908941782] [facility] Scheduled Test 2022-01-14 00:00:00 SHINGLES VACCINES (1 of 2) [code = SHINGLES VACCINES (1 of 2)] [facility] Scheduled Test 2013-12-15 00:00:00 PNEUMOCOCCAL VACCINE 0-64 YRS (2 - PCV) [code = PNEUMOCOCCAL VACCINE 0-64 YRS (2 - PCV)] [facility] Scheduled Test 2013-12-15 00:00:00 PNEUMOCOCCAL VACCINE 0-64 YRS (2 - PCV) [code = PNEUMOCOCCAL VACCINE 0-64 YRS (2 - PCV)] [facility] Future Scheduled Test 2013-12-15 00:00:00 PNEUMOCOCCAL VACCINE 0-64 YRS (2 - PCV) [code = PNEUMOCOCCAL VACCINE 0-64 YRS (2 - PCV)] [facility] Future Scheduled Test 2013-12-15 00:00:00 PNEUMOCOCCAL VACCINE 0-64 YRS (2 - PCV) [code = PNEUMOCOCCAL VACCINE 0-64 YRS (2 - PCV)] [facility] Future Scheduled Test 2013-12-15 00:00:00 Pneumococcal Vaccine: 0-64 Years (2 - PCV) [code = Pneumococcal Vaccine: 0-64 Years (2 - PCV)] [facility] Future Scheduled Test 2013-12-15 00:00:00 Pneumococcal Vaccine: 0-64 Years (2 - PCV) [code = Pneumococcal Vaccine: 0-64 Years (2 - PCV)] [facility] Future Scheduled Test 2013-12-15 00:00:00 Pneumococcal Vaccine: 0-64 Years (2 - PCV) [code = Pneumococcal Vaccine: 0-64 Years (2 - PCV)] [facility] Future Scheduled Test 2013-12-15 00:00:00 Pneumococcal Vaccine: 0-64 Years (2 - PCV) [code = Pneumococcal Vaccine: 0-64 Years (2 - PCV)] [facility] Future Scheduled Test 2013-12-15 00:00:00 Pneumococcal Vaccine: 0-64 Years (2 - PCV) [code = Pneumococcal Vaccine: 0-64 Years (2 - PCV)] [facility] Future Scheduled Test 2013-12-15 00:00:00 Pneumococcal Vaccine: 0-64 Years (2 - PCV) [code = Pneumococcal Vaccine: 0-64 Years (2 - PCV)] [facility] Future Scheduled Test 2013-12-15 00:00:00 Pneumococcal Vaccine: 0-64 Years (2 - PCV) [code = Pneumococcal Vaccine: 0-64 Years (2 - PCV)] [facility] Future Scheduled Test 2013-12-15 00:00:00 Pneumococcal Vaccine: 0-64 Years (2 - PCV) [code = Pneumococcal Vaccine: 0-64 Years (2 - PCV)] [facility] Future Scheduled Test 2013-12-15 00:00:00 Pneumococcal Vaccine: 0-64 Years (2 - PCV) [code = Pneumococcal Vaccine: 0-64 Years (2 - PCV)] [facility] Future Scheduled Test 2013-12-15 00:00:00 Pneumococcal Vaccine: 0-64 Years (2 - PCV) [code = Pneumococcal Vaccine: 0-64 Years (2 - PCV)] [facility] Future Scheduled Test 2013-12-15 00:00:00 Pneumococcal Vaccine: 0-64 Years (2 - PCV) [code = Pneumococcal Vaccine: 0-64 Years (2 - PCV)] [facility] Scheduled Test 2013-12-15 00:00:00 Pneumococcal Vaccine: 0-64 Years (2 - PCV) [code = Pneumococcal Vaccine: 0-64 Years (2 - PCV)] [facility] Scheduled Test 2013-12-15 00:00:00 Pneumococcal Vaccine: 0-64 Years (2 - PCV) [code = Pneumococcal Vaccine: 0-64 Years (2 - PCV)] [facility] Scheduled Test 2013-12-15 00:00:00 Pneumococcal Vaccine: 0-64 Years (2 - PCV) [code = Pneumococcal Vaccine: 0-64 Years (2 - PCV)] [facility] Scheduled Test 2013-12-15 00:00:00 Pneumococcal Vaccine: 0-64 Years (2 - PCV) [code = Pneumococcal Vaccine: 0-64 Years (2 - PCV)] [facility] Scheduled Test 2013-12-15 00:00:00 Pneumococcal Vaccine: 0-64 Years (2 - PCV) [code = Pneumococcal Vaccine: 0-64 Years (2 - PCV)] [facility] Scheduled Test 2013-12-15 00:00:00 Pneumococcal Vaccine: 0-64 Years (2 - PCV) [code = Pneumococcal Vaccine: 0-64 Years (2 - PCV)] [facility] Future Scheduled Test 2013-12-15 00:00:00 Pneumococcal Vaccine: 0-64 Years (2 - PCV) [code = Pneumococcal Vaccine: 0-64 Years (2 - PCV)] [facility] Scheduled Test 2013-12-15 00:00:00 Pneumococcal Vaccine: 0-64 Years (2 - PCV) [code = Pneumococcal Vaccine: 0-64 Years (2 - PCV)] [facility] Future Scheduled Test 2013-12-15 00:00:00 Pneumococcal Vaccine: 0-64 Years (2 - PCV) [code = Pneumococcal Vaccine: 0-64 Years (2 - PCV)] [facility] Future Scheduled Test 2013-12-15 00:00:00 Pneumococcal Vaccine: 0-64 Years (2 of 2 - PCV) [code = Pneumococcal Vaccine: 0-64 Years (2 of 2 - PCV)] [facility] Scheduled Test 2013-12-15 00:00:00 Pneumococcal Vaccine: 0-64 Years (2 of 2 - PCV) [code = Pneumococcal Vaccine: 0-64 Years (2 of 2 - PCV)] [facility] Scheduled Test 2013-12-15 00:00:00 Pneumococcal Vaccine: 0-64 Years (2 of 2 - PCV) [code = Pneumococcal Vaccine: 0-64 Years (2 of 2 - PCV)] [facility] Scheduled Test 2013-12-15 00:00:00 Pneumococcal Vaccine: 0-64 Years (2 of 2 - PCV) [code = Pneumococcal Vaccine: 0-64 Years (2 of 2 - PCV)] [facility] Scheduled Test 2013-12-15 00:00:00 Pneumococcal Vaccine: 0-64 Years (2 of 2 - PCV) [code = Pneumococcal Vaccine: 0-64 Years (2 of 2 - PCV)] [facility] Scheduled Test 2013-12-15 00:00:00 Pneumococcal Vaccine: 0-64 Years (2 - PCV) [code = Pneumococcal Vaccine: 0-64 Years (2 - PCV)] [facility] Scheduled Test 2013-12-15 00:00:00 Pneumococcal Vaccine: 0-64 Years (2 - PCV) [code = Pneumococcal Vaccine: 0-64 Years (2 - PCV)] [facility] Scheduled Test 2013-12-15 00:00:00 Pneumococcal Vaccine: 0-64 Years (2 - PCV) [code = Pneumococcal Vaccine: 0-64 Years (2 - PCV)] [facility] Scheduled Test 2013-12-15 00:00:00 Pneumococcal Vaccine: 0-64 Years (2 of 2 - PCV) [code = Pneumococcal Vaccine: 0-64 Years (2 of 2 - PCV)] [facility] Future Scheduled Test 1993-01-14 00:00:00 Screening for malignant neoplasm of cervix (procedure) [code = 848895394] [facility] Scheduled Test 1993-01-14 00:00:00 Screening for malignant neoplasm of cervix (procedure) [code = 892871429] [facility] Scheduled Test 1993-01-14 00:00:00 Screening for malignant neoplasm of cervix (procedure) [code = [id number]] [facility] Scheduled Test 1993-01-14 00:00:00 Screening for malignant neoplasm of cervix (procedure) [code = 938433835] [facility] Scheduled Test 1993-01-14 00:00:00 Screening for malignant neoplasm of cervix (procedure) [code = 296962104] [facility] Scheduled Test 1993-01-14 00:00:00 Screening for malignant neoplasm of cervix (procedure) [code = 819694105] [facility] Scheduled Test 1993-01-14 00:00:00 Screening for malignant neoplasm of cervix (procedure) [code = 380551661] [facility] Scheduled Test 1993-01-14 00:00:00 Screening for malignant neoplasm of cervix (procedure) [code = 963715377] [facility] Scheduled Test 1993-01-14 00:00:00 Screening for malignant neoplasm of cervix (procedure) [code = 782911170] [facility] Scheduled Test 1993-01-14 00:00:00 Screening for malignant neoplasm of cervix (procedure) [code = 929498392] [facility] Scheduled Test 1993-01-14 00:00:00 Screening for malignant neoplasm of cervix (procedure) [code = 531665868] [facility] Scheduled Test 1993-01-14 00:00:00 Screening for malignant neoplasm of cervix (procedure) [code = 785596551] [facility] Future Scheduled Test 1993-01-14 00:00:00 Screening for malignant neoplasm of cervix (procedure) [code = 748504974] [facility] Future Scheduled Test 1993-01-14 00:00:00 Screening for malignant neoplasm of cervix (procedure) [code = 076786010] [facility] Scheduled Test 1993-01-14 00:00:00 Screening for malignant neoplasm of cervix (procedure) [code = 446897347] [facility] Future Scheduled Test 1993-01-14 00:00:00 Screening for malignant neoplasm of cervix (procedure) [code = 191948197] [facility] Future Scheduled Test 1993-01-14 00:00:00 Screening for malignant neoplasm of cervix (procedure) [code = 228119383] [facility] Scheduled Test 1993-01-14 00:00:00 Screening for malignant neoplasm of cervix (procedure) [code = 755833423] [facility] Future Scheduled Test 1993-01-14 00:00:00 Screening for malignant neoplasm of cervix (procedure) [code = 772058758] [facility] Future Scheduled Test 1993-01-14 00:00:00 Screening for malignant neoplasm of cervix (procedure) [code = 863952884] [facility] Future Scheduled Test 1993-01-14 00:00:00 Screening for malignant neoplasm of cervix (procedure) [code = 618044185] [facility] Future Scheduled Test 1993-01-14 00:00:00 Screening for malignant neoplasm of cervix (procedure) [code = 100573214] [facility] Future Scheduled Test 1993-01-14 00:00:00 Screening for malignant neoplasm of cervix (procedure) [code = 239235300] [facility] Future Scheduled Test 1993-01-14 00:00:00 Screening for malignant neoplasm of cervix (procedure) [code = 176307337] [facility] Future Scheduled Test 1993-01-14 00:00:00 Screening for malignant neoplasm of cervix (procedure) [code = 559991086] [facility] Future Scheduled Test 1993-01-14 00:00:00 Screening for malignant neoplasm of cervix (procedure) [code = 018454853] [facility] Future Scheduled Test 1993-01-14 00:00:00 Screening for malignant neoplasm of cervix (procedure) [code = [id number]] [facility] Future Scheduled Test 1993-01-14 00:00:00 Screening for malignant neoplasm of cervix (procedure) [code = [id number]] [facility] Future Scheduled Test 1993-01-14 00:00:00 Screening for malignant neoplasm of cervix (procedure) [code = [id number]] [facility] Future Scheduled Test 1993-01-14 00:00:00 Screening for malignant neoplasm of cervix (procedure) [code = [id number]] [facility] Future Scheduled Test 1993-01-14 00:00:00 Screening for malignant neoplasm of cervix (procedure) [code = [id number]] [facility] Future Scheduled Test 1993-01-14 00:00:00 Screening for malignant neoplasm of cervix (procedure) [code = [id number]] [facility] Future Scheduled Test 1993-01-14 00:00:00 Screening for malignant neoplasm of cervix (procedure) [code = [id number]] [facility] Future Scheduled Test 1993-01-14 00:00:00 Screening for malignant neoplasm of cervix (procedure) [code = [id number]] [facility] Future Scheduled Test 1993-01-14 00:00:00 Screening for malignant neoplasm of cervix (procedure) [code = [id number]] [facility] Future Scheduled Test 1993-01-14 00:00:00 Screening for malignant neoplasm of cervix (procedure) [code = [id number]] [facility] Future Scheduled Test 1993-01-14 00:00:00 Screening for malignant neoplasm of cervix (procedure) [code = [id number]] [facility] Future Scheduled Test 1993-01-14 00:00:00 Screening for malignant neoplasm of cervix (procedure) [code = [id number]] [facility] Future Scheduled Test 1993-01-14 00:00:00 Screening for malignant neoplasm of cervix (procedure) [code = [id number]] [facility] Future Scheduled Test 1993-01-14 00:00:00 Screening for malignant neoplasm of cervix (procedure) [code = [id number]] [facility] Future Scheduled Test 1993-01-14 00:00:00 Screening for malignant neoplasm of cervix (procedure) [code = [id number]] [facility] Future Scheduled Test 1993-01-14 00:00:00 Screening for malignant neoplasm of cervix (procedure) [code = [id number]] [facility] Future Scheduled Test 1993-01-14 00:00:00 Screening for malignant neoplasm of cervix (procedure) [code = [id number]] [facility] Future Scheduled Test 1993-01-14 00:00:00 Screening for malignant neoplasm of cervix (procedure) [code = 677345270] [facility] Future Scheduled Test 1993-01-14 00:00:00 Screening for malignant neoplasm of cervix (procedure) [code = 632945110] [facility] Future Scheduled Test 1993-01-14 00:00:00 Screening for malignant neoplasm of cervix (procedure) [code = [id number]] [facility] Future Scheduled Test 1993-01-14 00:00:00 Screening for malignant neoplasm of cervix (procedure) [code = 913105564] [facility] Future Scheduled Test 1993-01-14 00:00:00 Screening for malignant neoplasm of cervix (procedure) [code = [id number]] [facility] Future Scheduled Test 1993-01-14 00:00:00 Screening for malignant neoplasm of cervix (procedure) [code = 527802886] [facility] Future Scheduled Test 1993-01-14 00:00:00 Screening for malignant neoplasm of cervix (procedure) [code = [id number]] [facility] Future Scheduled Test 1993-01-14 00:00:00 Screening for malignant neoplasm of cervix (procedure) [code = 920846924] [facility] Future Scheduled Test 1993-01-14 00:00:00 Screening for malignant neoplasm of cervix (procedure) [code = 375648056] [facility] Future Scheduled Test 1993-01-14 00:00:00 Screening for malignant neoplasm of cervix (procedure) [code = 991566500] [facility] Future Scheduled Test 1993-01-14 00:00:00 Screening for malignant neoplasm of cervix (procedure) [code = 325193590] [facility] Future Scheduled Test 1993-01-14 00:00:00 Screening for malignant neoplasm of cervix (procedure) [code = 114272077] [facility] Future Scheduled Test 1993-01-14 00:00:00 Screening for malignant neoplasm of cervix (procedure) [code = [id number]] [facility] Future Scheduled Test 1993-01-14 00:00:00 Screening for malignant neoplasm of cervix (procedure) [code = [id number]] [facility] Future Scheduled Test 1991-01-14 00:00:00 DTAP/TDAP/TD VACCINES (1 - Tdap) [code = DTAP/TDAP/TD VACCINES (1 - Tdap)] [facility] Future Scheduled Test 1991-01-14 00:00:00 DTAP/TDAP/TD VACCINES (1 - Tdap) [code = DTAP/TDAP/TD VACCINES (1 - Tdap)] [facility] Future Scheduled Test 1991-01-14 00:00:00 DTAP/TDAP/TD VACCINES (1 - Tdap) [code = DTAP/TDAP/TD VACCINES (1 - Tdap)] [facility] Future Scheduled Test 1991-01-14 00:00:00 DTAP/TDAP/TD VACCINES (1 - Tdap) [code = DTAP/TDAP/TD VACCINES (1 - Tdap)] [facility] Future Scheduled Test 1991-01-14 00:00:00 DTAP/TDAP/TD VACCINES (1 - Tdap) [code = DTAP/TDAP/TD VACCINES (1 - Tdap)] [facility] Future Scheduled Test 1991-01-14 00:00:00 DTAP/TDAP/TD VACCINES (1 - Tdap) [code = DTAP/TDAP/TD VACCINES (1 - Tdap)] [facility] Future Scheduled Test 1991-01-14 00:00:00 DTAP/TDAP/TD VACCINES (1 - Tdap) [code = DTAP/TDAP/TD VACCINES (1 - Tdap)] [facility] Future Scheduled Test 1991-01-14 00:00:00 DTAP/TDAP/TD VACCINES (1 - Tdap) [code = DTAP/TDAP/TD VACCINES (1 - Tdap)] [facility] Future Scheduled Test 1991-01-14 00:00:00 DTAP/TDAP/TD VACCINES (1 - Tdap) [code = DTAP/TDAP/TD VACCINES (1 - Tdap)] [facility] Future Scheduled Test 1991-01-14 00:00:00 DTAP/TDAP/TD VACCINES (1 - Tdap) [code = DTAP/TDAP/TD VACCINES (1 - Tdap)] [facility] Future Scheduled Test 1991-01-14 00:00:00 DTAP/TDAP/TD VACCINES (1 - Tdap) [code = DTAP/TDAP/TD VACCINES (1 - Tdap)] [facility] Future Scheduled Test 1991-01-14 00:00:00 DTAP/TDAP/TD VACCINES (1 - Tdap) [code = DTAP/TDAP/TD VACCINES (1 - Tdap)] [facility] Future Scheduled Test 1991-01-14 00:00:00 DTAP/TDAP/TD VACCINES (1 - Tdap) [code = DTAP/TDAP/TD VACCINES (1 - Tdap)] [facility] Future Scheduled Test 1991-01-14 00:00:00 DTAP/TDAP/TD VACCINES (1 - Tdap) [code = DTAP/TDAP/TD VACCINES (1 - Tdap)] [facility] Future Scheduled Test 1991-01-14 00:00:00 DTAP/TDAP/TD VACCINES (1 - Tdap) [code = DTAP/TDAP/TD VACCINES (1 - Tdap)] [facility] Future Scheduled Test 1991-01-14 00:00:00 DTAP/TDAP/TD VACCINES (1 - Tdap) [code = DTAP/TDAP/TD VACCINES (1 - Tdap)] [facility] Future Scheduled Test 1991-01-14 00:00:00 DTAP/TDAP/TD VACCINES (1 - Tdap) [code = DTAP/TDAP/TD VACCINES (1 - Tdap)] [facility] Future Scheduled Test 1991-01-14 00:00:00 DTAP/TDAP/TD VACCINES (1 - Tdap) [code = DTAP/TDAP/TD VACCINES (1 - Tdap)] [facility] Future Scheduled Test 1991-01-14 00:00:00 DTAP/TDAP/TD VACCINES (1 - Tdap) [code = DTAP/TDAP/TD VACCINES (1 - Tdap)] [facility] Future Scheduled Test 1991-01-14 00:00:00 DTAP/TDAP/TD VACCINES (1 - Tdap) [code = DTAP/TDAP/TD VACCINES (1 - Tdap)] [facility] Future Scheduled Test 1991-01-14 00:00:00 DTAP/TDAP/TD VACCINES (1 - Tdap) [code = DTAP/TDAP/TD VACCINES (1 - Tdap)] [facility] Future Scheduled Test 1991-01-14 00:00:00 DTAP/TDAP/TD VACCINES (1 - Tdap) [code = DTAP/TDAP/TD VACCINES (1 - Tdap)] [facility] Future Scheduled Test 1991-01-14 00:00:00 DTAP/TDAP/TD VACCINES (1 - Tdap) [code = DTAP/TDAP/TD VACCINES (1 - Tdap)] [facility] Future Scheduled Test 1991-01-14 00:00:00 DTAP/TDAP/TD VACCINES (1 - Tdap) [code = DTAP/TDAP/TD VACCINES (1 - Tdap)] [facility] Future Scheduled Test 1991-01-14 00:00:00 DTAP/TDAP/TD VACCINES (1 - Tdap) [code = DTAP/TDAP/TD VACCINES (1 - Tdap)] [facility] Future Scheduled Test 1991-01-14 00:00:00 DTAP/TDAP/TD VACCINES (1 - Tdap) [code = DTAP/TDAP/TD VACCINES (1 - Tdap)] [facility] Future Scheduled Test 1991-01-14 00:00:00 DTAP/TDAP/TD VACCINES (1 - Tdap) [code = DTAP/TDAP/TD VACCINES (1 - Tdap)] [facility] Future Scheduled Test 1991-01-14 00:00:00 DTAP/TDAP/TD VACCINES (1 - Tdap) [code = DTAP/TDAP/TD VACCINES (1 - Tdap)] [facility] Future Scheduled Test 1991-01-14 00:00:00 DTAP/TDAP/TD VACCINES (1 - Tdap) [code = DTAP/TDAP/TD VACCINES (1 - Tdap)] [facility] Future Scheduled Test 1991-01-14 00:00:00 DTAP/TDAP/TD VACCINES (1 - Tdap) [code = DTAP/TDAP/TD VACCINES (1 - Tdap)] [facility] Future Scheduled Test 1991-01-14 00:00:00 DTAP/TDAP/TD VACCINES (1 - Tdap) [code = DTAP/TDAP/TD VACCINES (1 - Tdap)] [facility] Future Scheduled Test 1991-01-14 00:00:00 DTAP/TDAP/TD VACCINES (1 - Tdap) [code = DTAP/TDAP/TD VACCINES (1 - Tdap)] [facility] Future Scheduled Test 1991-01-14 00:00:00 DTAP/TDAP/TD VACCINES (1 - Tdap) [code = DTAP/TDAP/TD VACCINES (1 - Tdap)] [facility] Future Scheduled Test 1991-01-14 00:00:00 DTAP/TDAP/TD VACCINES (1 - Tdap) [code = DTAP/TDAP/TD VACCINES (1 - Tdap)] [facility] Future Scheduled Test 1991-01-14 00:00:00 DTAP/TDAP/TD VACCINES (1 - Tdap) [code = DTAP/TDAP/TD VACCINES (1 - Tdap)] [facility] Future Scheduled Test 1991-01-14 00:00:00 DTAP/TDAP/TD VACCINES (1 - Tdap) [code = DTAP/TDAP/TD VACCINES (1 - Tdap)] [facility] Future Scheduled Test 1991-01-14 00:00:00 DTAP/TDAP/TD VACCINES (1 - Tdap) [code = DTAP/TDAP/TD VACCINES (1 - Tdap)] [facility] Future Scheduled Test 1991-01-14 00:00:00 DTAP/TDAP/TD VACCINES (1 - Tdap) [code = DTAP/TDAP/TD VACCINES (1 - Tdap)] [facility] Future Scheduled Test 1991-01-14 00:00:00 DTAP/TDAP/TD VACCINES (1 - Tdap) [code = DTAP/TDAP/TD VACCINES (1 - Tdap)] [facility] Future Scheduled Test 1991-01-14 00:00:00 DTAP/TDAP/TD VACCINES (1 - Tdap) [code = DTAP/TDAP/TD VACCINES (1 - Tdap)] [facility] Future Scheduled Test 1991-01-14 00:00:00 DTAP/TDAP/TD VACCINES (1 - Tdap) [code = DTAP/TDAP/TD VACCINES (1 - Tdap)] [facility] Future Scheduled Test 1991-01-14 00:00:00 DTAP/TDAP/TD VACCINES (1 - Tdap) [code = DTAP/TDAP/TD VACCINES (1 - Tdap)] [facility] Future Scheduled Test 1991-01-14 00:00:00 DTAP/TDAP/TD VACCINES (1 - Tdap) [code = DTAP/TDAP/TD VACCINES (1 - Tdap)] [facility] Future Scheduled Test 1991-01-14 00:00:00 DTAP/TDAP/TD VACCINES (1 - Tdap) [code = DTAP/TDAP/TD VACCINES (1 - Tdap)] [facility] Future Scheduled Test 1991-01-14 00:00:00 DTAP/TDAP/TD VACCINES (1 - Tdap) [code = DTAP/TDAP/TD VACCINES (1 - Tdap)] [facility] Future Scheduled Test 1991-01-14 00:00:00 DTAP/TDAP/TD VACCINES (1 - Tdap) [code = DTAP/TDAP/TD VACCINES (1 - Tdap)] [facility] Future Scheduled Test 1991-01-14 00:00:00 DTAP/TDAP/TD VACCINES (1 - Tdap) [code = DTAP/TDAP/TD VACCINES (1 - Tdap)] [facility] Future Scheduled Test 1991-01-14 00:00:00 DTAP/TDAP/TD VACCINES (1 - Tdap) [code = DTAP/TDAP/TD VACCINES (1 - Tdap)] [facility] Future Scheduled Test 1991-01-14 00:00:00 DTAP/TDAP/TD VACCINES (1 - Tdap) [code = DTAP/TDAP/TD VACCINES (1 - Tdap)] [facility] Future Scheduled Test 1991-01-14 00:00:00 DTAP/TDAP/TD VACCINES (1 - Tdap) [code = DTAP/TDAP/TD VACCINES (1 - Tdap)] [facility] Future Scheduled Test 1991-01-14 00:00:00 DTAP/TDAP/TD VACCINES (1 - Tdap) [code = DTAP/TDAP/TD VACCINES (1 - Tdap)] [facility] Future Scheduled Test 1991-01-14 00:00:00 DTAP/TDAP/TD VACCINES (1 - Tdap) [code = DTAP/TDAP/TD VACCINES (1 - Tdap)] [facility] Future Scheduled Test 1991-01-14 00:00:00 DTAP/TDAP/TD VACCINES (1 - Tdap) [code = DTAP/TDAP/TD VACCINES (1 - Tdap)] [facility] Future Scheduled Test 1991-01-14 00:00:00 DTAP/TDAP/TD VACCINES (1 - Tdap) [code = DTAP/TDAP/TD VACCINES (1 - Tdap)] [facility] Future Scheduled Test 1991-01-14 00:00:00 DTAP/TDAP/TD VACCINES (1 - Tdap) [code = DTAP/TDAP/TD VACCINES (1 - Tdap)] [facility] Future Scheduled Test 1991-01-14 00:00:00 DTAP/TDAP/TD VACCINES (1 - Tdap) [code = DTAP/TDAP/TD VACCINES (1 - Tdap)] [facility] Future Scheduled Test 1991-01-14 00:00:00 DTAP/TDAP/TD VACCINES (1 - Tdap) [code = DTAP/TDAP/TD VACCINES (1 - Tdap)] [facility] Future Scheduled Test 1990-01-14 00:00:00 HEPATITIS C SCREENING [code = HEPATITIS C SCREENING] [facility] Future Scheduled Test 1990-01-14 00:00:00 HEPATITIS C SCREENING [code = HEPATITIS C SCREENING] [facility] Future Scheduled Test 1990-01-14 00:00:00 HEPATITIS C SCREENING [code = HEPATITIS C SCREENING] [facility] Future Scheduled Test 1990-01-14 00:00:00 HEPATITIS C SCREENING [code = HEPATITIS C SCREENING] [facility] Future Scheduled Test 1990-01-14 00:00:00 HEPATITIS C SCREENING [code = HEPATITIS C SCREENING] [facility] Future Scheduled Test 1990-01-14 00:00:00 HEPATITIS C SCREENING [code = HEPATITIS C SCREENING] [facility] Future Scheduled Test 1990-01-14 00:00:00 HEPATITIS C SCREENING [code = HEPATITIS C SCREENING] [facility] Future Scheduled Test 1990-01-14 00:00:00 HEPATITIS C SCREENING [code = HEPATITIS C SCREENING] [facility] Future Scheduled Test 1990-01-14 00:00:00 HEPATITIS C SCREENING [code = HEPATITIS C SCREENING] [facility] Future Scheduled Test 1990-01-14 00:00:00 HEPATITIS C SCREENING [code = HEPATITIS C SCREENING] [facility] Future Scheduled Test 1990-01-14 00:00:00 HEPATITIS C SCREENING [code = HEPATITIS C SCREENING] [facility] Future Scheduled Test 1990-01-14 00:00:00 HEPATITIS C SCREENING [code = HEPATITIS C SCREENING] [facility] Future Scheduled Test 1990-01-14 00:00:00 HEPATITIS C SCREENING [code = HEPATITIS C SCREENING] [facility] Future Scheduled Test 1990-01-14 00:00:00 HEPATITIS C SCREENING [code = HEPATITIS C SCREENING] [facility] Future Scheduled Test 1990-01-14 00:00:00 HEPATITIS C SCREENING [code = HEPATITIS C SCREENING] [facility] Future Scheduled Test 1990-01-14 00:00:00 HEPATITIS C SCREENING [code = HEPATITIS C SCREENING] [facility] Future Scheduled Test 1990-01-14 00:00:00 HEPATITIS C SCREENING [code = HEPATITIS C SCREENING] [facility] Future Scheduled Test 1990-01-14 00:00:00 HEPATITIS C SCREENING [code = HEPATITIS C SCREENING] [facility] Future Scheduled Test 1990-01-14 00:00:00 HEPATITIS C SCREENING [code = HEPATITIS C SCREENING] [facility] Future Scheduled Test 1990-01-14 00:00:00 HEPATITIS C SCREENING [code = HEPATITIS C SCREENING] [facility] Future Scheduled Test 1990-01-14 00:00:00 HEPATITIS C SCREENING [code = HEPATITIS C SCREENING] [facility] Future Scheduled Test 1990-01-14 00:00:00 HEPATITIS C SCREENING [code = HEPATITIS C SCREENING] [facility] Future Scheduled Test 1990-01-14 00:00:00 HEPATITIS C SCREENING [code = HEPATITIS C SCREENING] [facility] Future Scheduled Test 1990-01-14 00:00:00 HEPATITIS C SCREENING [code = HEPATITIS C SCREENING] [facility] Future Scheduled Test 1990-01-14 00:00:00 HEPATITIS C SCREENING [code = HEPATITIS C SCREENING] [facility] Future Scheduled Test 1990-01-14 00:00:00 HEPATITIS C SCREENING [code = HEPATITIS C SCREENING] [facility] Future Scheduled Test 1990-01-14 00:00:00 HEPATITIS C SCREENING [code = HEPATITIS C SCREENING] [facility] Future Scheduled Test 1990-01-14 00:00:00 HEPATITIS C SCREENING [code = HEPATITIS C SCREENING] [facility] Future Scheduled Test 1990-01-14 00:00:00 HEPATITIS C SCREENING [code = HEPATITIS C SCREENING] [facility] Future Scheduled Test 1990-01-14 00:00:00 HEPATITIS C SCREENING [code = HEPATITIS C SCREENING] [facility] Future Scheduled Test 1990-01-14 00:00:00 HEPATITIS C SCREENING [code = HEPATITIS C SCREENING] [facility] Future Scheduled Test 1990-01-14 00:00:00 HEPATITIS C SCREENING [code = HEPATITIS C SCREENING] [facility] Future Scheduled Test 1990-01-14 00:00:00 HEPATITIS C SCREENING [code = HEPATITIS C SCREENING] [facility] Future Scheduled Test 1990-01-14 00:00:00 HEPATITIS C SCREENING [code = HEPATITIS C SCREENING] [facility] Future Scheduled Test 1990-01-14 00:00:00 HEPATITIS C SCREENING [code = HEPATITIS C SCREENING] [facility] Future Scheduled Test 1990-01-14 00:00:00 HEPATITIS C SCREENING [code = HEPATITIS C SCREENING] [facility] Future Scheduled Test 1990-01-14 00:00:00 HEPATITIS C SCREENING [code = HEPATITIS C SCREENING] [facility] Future Scheduled Test 1990-01-14 00:00:00 HEPATITIS C SCREENING [code = HEPATITIS C SCREENING] [facility] Future Scheduled Test 1990-01-14 00:00:00 HEPATITIS C SCREENING [code = HEPATITIS C SCREENING] [facility] Future Scheduled Test 1990-01-14 00:00:00 HEPATITIS C SCREENING [code = HEPATITIS C SCREENING] [facility] Future Scheduled Test 1990-01-14 00:00:00 HEPATITIS C SCREENING [code = HEPATITIS C SCREENING] [facility] Future Scheduled Test 1990-01-14 00:00:00 HEPATITIS C SCREENING [code = HEPATITIS C SCREENING] [facility] Future Scheduled Test 1990-01-14 00:00:00 HEPATITIS C SCREENING [code = HEPATITIS C SCREENING] [facility] Future Scheduled Test 1990-01-14 00:00:00 HEPATITIS C SCREENING [code = HEPATITIS C SCREENING] [facility] Future Scheduled Test 1990-01-14 00:00:00 HEPATITIS C SCREENING [code = HEPATITIS C SCREENING] [facility] Future Scheduled Test 1990-01-14 00:00:00 HEPATITIS C SCREENING [code = HEPATITIS C SCREENING] [facility] Future Scheduled Test 1990-01-14 00:00:00 HEPATITIS C SCREENING [code = HEPATITIS C SCREENING] [facility] Future Scheduled Test 1990-01-14 00:00:00 HEPATITIS C SCREENING [code = HEPATITIS C SCREENING] [facility] Future Scheduled Test 1990-01-14 00:00:00 HEPATITIS C SCREENING [code = HEPATITIS C SCREENING] [facility] Future Scheduled Test 1990-01-14 00:00:00 HEPATITIS C SCREENING [code = HEPATITIS C SCREENING] [facility] Future Scheduled Test 1990-01-14 00:00:00 HEPATITIS C SCREENING [code = HEPATITIS C SCREENING] [facility] Future Scheduled Test 1990-01-14 00:00:00 HEPATITIS C SCREENING [code = HEPATITIS C SCREENING] [facility] Future Scheduled Test 1990-01-14 00:00:00 HEPATITIS C SCREENING [code = HEPATITIS C SCREENING] [facility] Future Scheduled Test 1990-01-14 00:00:00 HEPATITIS C SCREENING [code = HEPATITIS C SCREENING] [facility] Future Scheduled Test 1990-01-14 00:00:00 HEPATITIS C SCREENING [code = HEPATITIS C SCREENING] [facility] Future Scheduled Test 1990-01-14 00:00:00 HEPATITIS C SCREENING [code = HEPATITIS C SCREENING] [facility] Future Scheduled Test 1990-01-14 00:00:00 HEPATITIS C SCREENING [code = HEPATITIS C SCREENING] [facility] Future Scheduled Test 1987-01-14 00:00:00 Human immunodeficiency virus screening (procedure) [code = [id number]] [facility] Future Scheduled Test 1987-01-14 00:00:00 Human immunodeficiency virus screening (procedure) [code = [id number]] [facility] Future Scheduled Test 1984 00:00:00 Tobacco Cessation Counseling and Screening (12+) [code = Tobacco Cessation Counseling and Screening (12+)] [facility] Future Scheduled Test 1984 00:00:00 Tobacco Cessation Counseling and Screening (12+) [code = Tobacco Cessation Counseling and Screening (12+)] [facility] Future Scheduled Test 1984 00:00:00 Tobacco Cessation Counseling and Screening (12+) [code = Tobacco Cessation Counseling and Screening (12+)] [facility] Future Scheduled Test 1984 00:00:00 Tobacco Cessation Counseling and Screening (12+) [code = Tobacco Cessation Counseling and Screening (12+)] [facility] Future Scheduled Test 1984 00:00:00 Tobacco Cessation Counseling and Screening (12+) [code = Tobacco Cessation Counseling and Screening (12+)] [facility] Future Scheduled Test 1984 00:00:00 Tobacco Cessation Counseling and Screening (12+) [code = Tobacco Cessation Counseling and Screening (12+)] [facility] Future Scheduled Test 1984 00:00:00 Tobacco Cessation Counseling and Screening (12+) [code = Tobacco Cessation Counseling and Screening (12+)] [facility] Scheduled Test 1984 00:00:00 Tobacco Cessation Counseling and Screening (12+) [code = Tobacco Cessation Counseling and Screening (12+)] [facility] Future Scheduled Test 1984 00:00:00 Tobacco Cessation Counseling and Screening (12+) [code = Tobacco Cessation Counseling and Screening (12+)] [facility] Scheduled Test 1984 00:00:00 Tobacco Cessation Counseling and Screening (12+) [code = Tobacco Cessation Counseling and Screening (12+)] [facility] Scheduled Test 1984 00:00:00 Tobacco Cessation Counseling and Screening (12+) [code = Tobacco Cessation Counseling and Screening (12+)] [facility] Scheduled Test 1984 00:00:00 Tobacco Cessation Counseling and Screening (12+) [code = Tobacco Cessation Counseling and Screening (12+)] [facility] Scheduled Test 1984 00:00:00 Tobacco Cessation Counseling and Screening (12+) [code = Tobacco Cessation Counseling and Screening (12+)] [facility] Scheduled Test 1984 00:00:00 Tobacco Cessation Counseling and Screening (12+) [code = Tobacco Cessation Counseling and Screening (12+)] [facility] Future Scheduled Test 1984 00:00:00 Tobacco Cessation Counseling and Screening (12+) [code = Tobacco Cessation Counseling and Screening (12+)] [facility] Future Scheduled Test 1984 00:00:00 Tobacco Cessation Counseling and Screening (12+) [code = Tobacco Cessation Counseling and Screening (12+)] [facility] Scheduled Test 1984 00:00:00 Tobacco Cessation Counseling and Screening (12+) [code = Tobacco Cessation Counseling and Screening (12+)] [facility] Future Scheduled Test 1984 00:00:00 Tobacco Cessation Counseling and Screening (12+) [code = Tobacco Cessation Counseling and Screening (12+)] [facility] Future Scheduled Test 1984 00:00:00 Tobacco Cessation Counseling and Screening (12+) [code = Tobacco Cessation Counseling and Screening (12+)] [facility] Scheduled Test 1984 00:00:00 Tobacco Cessation Counseling and Screening (12+) [code = Tobacco Cessation Counseling and Screening (12+)] [facility] Future Scheduled Test 1984 00:00:00 Tobacco Cessation Counseling and Screening (12+) [code = Tobacco Cessation Counseling and Screening (12+)] [facility] Future Scheduled Test 1984 00:00:00 Tobacco Cessation Counseling and Screening (12+) [code = Tobacco Cessation Counseling and Screening (12+)] [facility] Future Scheduled Test 1984 00:00:00 Tobacco Cessation Counseling and Screening (12+) [code = Tobacco Cessation Counseling and Screening (12+)] [facility] Future Scheduled Test 1972 00:00:00 Screening for malignant neoplasm of breast (procedure) [code = [id number]] [facility] Future Scheduled Test 1972 00:00:00 CT Colonography (combo) [code = CT Colonography (combo)] [facility] Future Scheduled Test 1972 00:00:00 Screening for malignant neoplasm of colon (procedure) [code = [id number]] [facility] Future Scheduled Test 1972 00:00:00 Screening for malignant neoplasm of colon (procedure) [code = 153180919] [facility] Future Scheduled Test 1972 00:00:00 Screening for malignant neoplasm of colon (procedure) [code = 686873251] [facility] Future Scheduled Test 1972 00:00:00 Screening for malignant neoplasm of colon (procedure) [code = 851383483] [facility] Future Scheduled Test 1972 00:00:00 Sigmoidoscopy [code = Sigmoidoscopy] [facility] Future Scheduled Test 1972 00:00:00 Screening for malignant neoplasm of breast (procedure) [code = 726471514] [facility] Future Scheduled Test 1972 00:00:00 CT Colonography (combo) [code = CT Colonography (combo)] [facility] Future Scheduled Test 1972 00:00:00 Screening for malignant neoplasm of colon (procedure) [code = [id number]] [facility] Future Scheduled Test 1972 00:00:00 Screening for malignant neoplasm of colon (procedure) [code = 705589046] [facility] Future Scheduled Test 1972 00:00:00 Screening for malignant neoplasm of colon (procedure) [code = 411312908] [facility] Future Scheduled Test 1972 00:00:00 Screening for malignant neoplasm of colon (procedure) [code = 117128922] [facility] Future Scheduled Test 1972 00:00:00 Sigmoidoscopy [code = Sigmoidoscopy] [facility] Future Scheduled Test 1972 00:00:00 Screening for malignant neoplasm of breast (procedure) [code = [id number]] [facility] Future Scheduled Test 1972 00:00:00 CT Colonography (combo) [code = CT Colonography (combo)] [facility] Future Scheduled Test 1972 00:00:00 Screening for malignant neoplasm of colon (procedure) [code = 042057093] [facility] Future Scheduled Test 1972 00:00:00 Screening for malignant neoplasm of colon (procedure) [code = 433546335] [facility] Future Scheduled Test 1972 00:00:00 Screening for malignant neoplasm of colon (procedure) [code = 396047413] [facility] Future Scheduled Test 1972 00:00:00 Screening for malignant neoplasm of colon (procedure) [code = 534561962] [facility] Future Scheduled Test 1972 00:00:00 Sigmoidoscopy [code = Sigmoidoscopy] [facility] Future Scheduled Test 1972 00:00:00 Screening for malignant neoplasm of breast (procedure) [code = 002537556] [facility] Future Scheduled Test 1972 00:00:00 CT Colonography (combo) [code = CT Colonography (combo)] [facility] Future Scheduled Test 1972 00:00:00 Screening for malignant neoplasm of colon (procedure) [code = 395963859] [facility] Future Scheduled Test 1972 00:00:00 Screening for malignant neoplasm of colon (procedure) [code = 498606745] [facility] Future Scheduled Test 1972 00:00:00 Screening for malignant neoplasm of colon (procedure) [code = 542815856] [facility] Future Scheduled Test 1972 00:00:00 Screening for malignant neoplasm of colon (procedure) [code = 215471202] [facility] Future Scheduled Test 1972 00:00:00 Sigmoidoscopy [code = Sigmoidoscopy] [facility] Future Scheduled Test 1972 00:00:00 Screening for malignant neoplasm of breast (procedure) [code = 588696907] [facility] Future Scheduled Test 1972 00:00:00 CT Colonography (combo) [code = CT Colonography (combo)] [facility] Future Scheduled Test 1972 00:00:00 Screening for malignant neoplasm of colon (procedure) [code = 417575545] [facility] Future Scheduled Test 1972 00:00:00 Screening for malignant neoplasm of colon (procedure) [code = 525060236] [facility] Future Scheduled Test 1972 00:00:00 Screening for malignant neoplasm of colon (procedure) [code = 705992300] [facility] Future Scheduled Test 1972 00:00:00 Screening for malignant neoplasm of colon (procedure) [code = 883555555] [facility] Future Scheduled Test 1972 00:00:00 Sigmoidoscopy [code = Sigmoidoscopy] [facility] Future Scheduled Test 1972 00:00:00 Screening for malignant neoplasm of breast (procedure) [code = 001287441] [facility] Future Scheduled Test 1972 00:00:00 CT Colonography (combo) [code = CT Colonography (combo)] [facility] Future Scheduled Test 1972 00:00:00 Screening for malignant neoplasm of colon (procedure) [code = 208836438] [facility] Future Scheduled Test 1972 00:00:00 Screening for malignant neoplasm of colon (procedure) [code = 151596990] [facility] Future Scheduled Test 1972 00:00:00 Screening for malignant neoplasm of colon (procedure) [code = 213111120] [facility] Future Scheduled Test 1972 00:00:00 Screening for malignant neoplasm of colon (procedure) [code = 214285939] [facility] Future Scheduled Test 1972 00:00:00 Sigmoidoscopy [code = Sigmoidoscopy] [facility] Future Scheduled Test 1972 00:00:00 Screening for malignant neoplasm of breast (procedure) [code = 979883357] [facility] Future Scheduled Test 1972 00:00:00 CT Colonography (combo) [code = CT Colonography (combo)] [facility] Future Scheduled Test 1972 00:00:00 Screening for malignant neoplasm of colon (procedure) [code = 871051824] [facility] Future Scheduled Test 1972 00:00:00 Screening for malignant neoplasm of colon (procedure) [code = 837155113] [facility] Future Scheduled Test 1972 00:00:00 Screening for malignant neoplasm of colon (procedure) [code = 090594293] [facility] Future Scheduled Test 1972 00:00:00 Screening for malignant neoplasm of colon (procedure) [code = 517698911] [facility] Future Scheduled Test 1972 00:00:00 Sigmoidoscopy [code = Sigmoidoscopy] [facility] Future Scheduled Test 1972 00:00:00 Screening for malignant neoplasm of breast (procedure) [code = 027523017] [facility] Future Scheduled Test 1972 00:00:00 CT Colonography (combo) [code = CT Colonography (combo)] [facility] Future Scheduled Test 1972 00:00:00 Screening for malignant neoplasm of colon (procedure) [code = 891441998] [facility] Future Scheduled Test 1972 00:00:00 Screening for malignant neoplasm of colon (procedure) [code = 498322985] [facility] Future Scheduled Test 1972 00:00:00 Screening for malignant neoplasm of colon (procedure) [code = 574958965] [facility] Future Scheduled Test 1972 00:00:00 Screening for malignant neoplasm of colon (procedure) [code = 291979934] [facility] Future Scheduled Test 1972 00:00:00 Sigmoidoscopy [code = Sigmoidoscopy] [facility] Future Scheduled Test 1972 00:00:00 Screening for malignant neoplasm of breast (procedure) [code = 916403451] [facility] Future Scheduled Test 1972 00:00:00 CT Colonography (combo) [code = CT Colonography (combo)] [facility] Future Scheduled Test 1972 00:00:00 Screening for malignant neoplasm of colon (procedure) [code = 197425922] [facility] Future Scheduled Test 1972 00:00:00 Screening for malignant neoplasm of colon (procedure) [code = 677362725] [facility] Future Scheduled Test 1972 00:00:00 Screening for malignant neoplasm of colon (procedure) [code = 553907920] [facility] Future Scheduled Test 1972 00:00:00 Screening for malignant neoplasm of colon (procedure) [code = 245230173] [facility] Future Scheduled Test 1972 00:00:00 Sigmoidoscopy [code = Sigmoidoscopy] [facility] Future Scheduled Test 1972 00:00:00 Screening for malignant neoplasm of breast (procedure) [code = 316620387] [facility] Future Scheduled Test 1972 00:00:00 CT Colonography (combo) [code = CT Colonography (combo)] [facility] Future Scheduled Test 1972 00:00:00 Screening for malignant neoplasm of colon (procedure) [code = 397993219] [facility] Future Scheduled Test 1972 00:00:00 Screening for malignant neoplasm of colon (procedure) [code = 400774053] [facility] Future Scheduled Test 1972 00:00:00 Screening for malignant neoplasm of colon (procedure) [code = 213577291] [facility] Future Scheduled Test 1972 00:00:00 Screening for malignant neoplasm of colon (procedure) [code = 920573052] [facility] Future Scheduled Test 1972 00:00:00 Sigmoidoscopy [code = Sigmoidoscopy] [facility] Future Scheduled Test 1972 00:00:00 Screening for malignant neoplasm of breast (procedure) [code = 118776286] [facility] Future Scheduled Test 1972 00:00:00 CT Colonography (combo) [code = CT Colonography (combo)] [facility] Future Scheduled Test 1972 00:00:00 Screening for malignant neoplasm of colon (procedure) [code = 610228900] [facility] Future Scheduled Test 1972 00:00:00 Screening for malignant neoplasm of colon (procedure) [code = 068305604] [facility] Future Scheduled Test 1972 00:00:00 Screening for malignant neoplasm of colon (procedure) [code = 707289612] [facility] Future Scheduled Test 1972 00:00:00 Screening for malignant neoplasm of colon (procedure) [code = 928694373] [facility] Future Scheduled Test 1972 00:00:00 Sigmoidoscopy [code = Sigmoidoscopy] [facility] Future Scheduled Test 1972 00:00:00 Screening for malignant neoplasm of breast (procedure) [code = 072527321] [facility] Future Scheduled Test 1972 00:00:00 CT Colonography (combo) [code = CT Colonography (combo)] [facility] Future Scheduled Test 1972 00:00:00 Screening for malignant neoplasm of colon (procedure) [code = 113347340] [facility] Future Scheduled Test 1972 00:00:00 Screening for malignant neoplasm of colon (procedure) [code = 136543000] [facility] Future Scheduled Test 1972 00:00:00 Screening for malignant neoplasm of colon (procedure) [code = 753715903] [facility] Future Scheduled Test 1972 00:00:00 Screening for malignant neoplasm of colon (procedure) [code = 168544232] [facility] Future Scheduled Test 1972 00:00:00 Sigmoidoscopy [code = Sigmoidoscopy] [facility] Future Scheduled Test 1972 00:00:00 Screening for malignant neoplasm of breast (procedure) [code = 170020856] [facility] Future Scheduled Test 1972 00:00:00 CT Colonography (combo) [code = CT Colonography (combo)] [facility] Future Scheduled Test 1972 00:00:00 Screening for malignant neoplasm of colon (procedure) [code = 673599723] [facility] Future Scheduled Test 1972 00:00:00 Screening for malignant neoplasm of colon (procedure) [code = 934567780] [facility] Future Scheduled Test 1972 00:00:00 Screening for malignant neoplasm of colon (procedure) [code = 590279458] [facility] Future Scheduled Test 1972 00:00:00 Screening for malignant neoplasm of colon (procedure) [code = 710681639] [facility] Future Scheduled Test 1972 00:00:00 Sigmoidoscopy [code = Sigmoidoscopy] [facility] Future Scheduled Test 1972 00:00:00 Screening for malignant neoplasm of breast (procedure) [code = 090346823] [facility] Future Scheduled Test 1972 00:00:00 CT Colonography (combo) [code = CT Colonography (combo)] [facility] Future Scheduled Test 1972 00:00:00 Screening for malignant neoplasm of colon (procedure) [code = 172314155] [facility] Future Scheduled Test 1972 00:00:00 Screening for malignant neoplasm of colon (procedure) [code = 859382162] [facility] Future Scheduled Test 1972 00:00:00 Screening for malignant neoplasm of colon (procedure) [code = 464870182] [facility] Future Scheduled Test 1972 00:00:00 Screening for malignant neoplasm of colon (procedure) [code = 280892358] [facility] Future Scheduled Test 1972 00:00:00 Sigmoidoscopy [code = Sigmoidoscopy] [facility] Future Scheduled Test 1972 00:00:00 Screening for malignant neoplasm of breast (procedure) [code = 442869537] [facility] Future Scheduled Test 1972 00:00:00 CT Colonography (combo) [code = CT Colonography (combo)] [facility] Future Scheduled Test 1972 00:00:00 Screening for malignant neoplasm of colon (procedure) [code = 335178646] [facility] Future Scheduled Test 1972 00:00:00 Screening for malignant neoplasm of colon (procedure) [code = 882978560] [facility] Future Scheduled Test 1972 00:00:00 Screening for malignant neoplasm of colon (procedure) [code = 877902810] [facility] Future Scheduled Test 1972 00:00:00 Screening for malignant neoplasm of colon (procedure) [code = 775506278] [facility] Future Scheduled Test 1972 00:00:00 Sigmoidoscopy [code = Sigmoidoscopy] [facility] Future Scheduled Test 1972 00:00:00 Screening for malignant neoplasm of breast (procedure) [code = 296385528] [facility] Future Scheduled Test 1972 00:00:00 CT Colonography (combo) [code = CT Colonography (combo)] [facility] Future Scheduled Test 1972 00:00:00 Screening for malignant neoplasm of colon (procedure) [code = 730451496] [facility] Future Scheduled Test 1972 00:00:00 Screening for malignant neoplasm of colon (procedure) [code = 890023274] [facility] Future Scheduled Test 1972 00:00:00 Screening for malignant neoplasm of colon (procedure) [code = 675012481] [facility] Future Scheduled Test 1972 00:00:00 Screening for malignant neoplasm of colon (procedure) [code = 588562483] [facility] Future Scheduled Test 1972 00:00:00 Sigmoidoscopy [code = Sigmoidoscopy] [facility] Future Scheduled Test 1972 00:00:00 Screening for malignant neoplasm of breast (procedure) [code = 464075110] [facility] Future Scheduled Test 1972 00:00:00 CT Colonography (combo) [code = CT Colonography (combo)] [facility] Future Scheduled Test 1972 00:00:00 Screening for malignant neoplasm of colon (procedure) [code = 986818519] [facility] Future Scheduled Test 1972 00:00:00 Screening for malignant neoplasm of colon (procedure) [code = 590163346] [facility] Future Scheduled Test 1972 00:00:00 Screening for malignant neoplasm of colon (procedure) [code = 926759027] [facility] Future Scheduled Test 1972 00:00:00 Screening for malignant neoplasm of colon (procedure) [code = 584827364] [facility] Future Scheduled Test 1972 00:00:00 Sigmoidoscopy [code = Sigmoidoscopy] [facility] Future Scheduled Test 1972 00:00:00 Screening for malignant neoplasm of breast (procedure) [code = 746044046] [facility] Future Scheduled Test 1972 00:00:00 CT Colonography (combo) [code = CT Colonography (combo)] [facility] Future Scheduled Test 1972 00:00:00 Screening for malignant neoplasm of breast (procedure) [code = 009864921] [facility] Future Scheduled Test 1972 00:00:00 CT Colonography (combo) [code = CT Colonography (combo)] [facility] Future Scheduled Test 1972 00:00:00 Screening for malignant neoplasm of colon (procedure) [code = 569627290] [facility] Future Scheduled Test 1972 00:00:00 Screening for malignant neoplasm of colon (procedure) [code = 041978875] [facility] Future Scheduled Test 1972 00:00:00 Screening for malignant neoplasm of colon (procedure) [code = 729960969] [facility] Future Scheduled Test 1972 00:00:00 Screening for malignant neoplasm of colon (procedure) [code = 736299424] [facility] Future Scheduled Test 1972 00:00:00 Sigmoidoscopy [code = Sigmoidoscopy] [facility] Future Scheduled Test 1972 00:00:00 Screening for malignant neoplasm of colon (procedure) [code = 136357342] [facility] Future Scheduled Test 1972 00:00:00 Screening for malignant neoplasm of colon (procedure) [code = 201332725] [facility] Future Scheduled Test 1972 00:00:00 Screening for malignant neoplasm of colon (procedure) [code = 536025455] [facility] Future Scheduled Test 1972 00:00:00 Screening for malignant neoplasm of colon (procedure) [code = 914505910] [facility] Future Scheduled Test 1972 00:00:00 Sigmoidoscopy [code = Sigmoidoscopy] [facility] Future Scheduled Test 1972 00:00:00 Screening for malignant neoplasm of breast (procedure) [code = 118418795] [facility] Future Scheduled Test 1972 00:00:00 CT Colonography (combo) [code = CT Colonography (combo)] [facility] Future Scheduled Test 1972 00:00:00 Screening for malignant neoplasm of colon (procedure) [code = 736528178] [facility] Future Scheduled Test 1972 00:00:00 Screening for malignant neoplasm of colon (procedure) [code = 410888155] [facility] Future Scheduled Test 1972 00:00:00 Screening for malignant neoplasm of colon (procedure) [code = 131979808] [facility] Future Scheduled Test 1972 00:00:00 Screening for malignant neoplasm of colon (procedure) [code = 888200816] [facility] Future Scheduled Test 1972 00:00:00 Sigmoidoscopy [code = Sigmoidoscopy] [facility] Future Scheduled Test 1972 00:00:00 Screening for malignant neoplasm of breast (procedure) [code = 470342866] [facility] Future Scheduled Test 1972 00:00:00 CT Colonography (combo) [code = CT Colonography (combo)] [facility] Future Scheduled Test 1972 00:00:00 Screening for malignant neoplasm of colon (procedure) [code = 627540127] [facility] Future Scheduled Test 1972 00:00:00 Screening for malignant neoplasm of colon (procedure) [code = 851789119] [facility] Future Scheduled Test 1972 00:00:00 Screening for malignant neoplasm of colon (procedure) [code = 881152265] [facility] Future Scheduled Test 1972 00:00:00 Screening for malignant neoplasm of colon (procedure) [code = 539346421] [facility] Future Scheduled Test 1972 00:00:00 Sigmoidoscopy [code = Sigmoidoscopy] [facility] Future Scheduled Test 1972 00:00:00 Screening for malignant neoplasm of breast (procedure) [code = 233768765] [facility] Future Scheduled Test 1972 00:00:00 CT Colonography (combo) [code = CT Colonography (combo)] [facility] Future Scheduled Test 1972 00:00:00 Screening for malignant neoplasm of colon (procedure) [code = 461280938] [facility] Future Scheduled Test 1972 00:00:00 Screening for malignant neoplasm of colon (procedure) [code = 721268795] [facility] Future Scheduled Test 1972 00:00:00 Screening for malignant neoplasm of colon (procedure) [code = 381794127] [facility] Future Scheduled Test 1972 00:00:00 Screening for malignant neoplasm of colon (procedure) [code = 252192607] [facility] Future Scheduled Test 1972 00:00:00 Sigmoidoscopy [code = Sigmoidoscopy] [facility] Future Scheduled Test 1972 00:00:00 Screening for malignant neoplasm of breast (procedure) [code = 585862193] [facility] Future Scheduled Test 1972 00:00:00 CT Colonography (combo) [code = CT Colonography (combo)] [facility] Future Scheduled Test 1972 00:00:00 Screening for malignant neoplasm of colon (procedure) [code = 163357284] [facility] Future Scheduled Test 1972 00:00:00 Screening for malignant neoplasm of colon (procedure) [code = 131038148] [facility] Future Scheduled Test 1972 00:00:00 Screening for malignant neoplasm of colon (procedure) [code = 173358320] [facility] Future Scheduled Test 1972 00:00:00 Screening for malignant neoplasm of colon (procedure) [code = 319856134] [facility] Future Scheduled Test 1972 00:00:00 Sigmoidoscopy [code = Sigmoidoscopy] [facility] Future Scheduled Test 1972 00:00:00 Screening for malignant neoplasm of breast (procedure) [code = 501912480] [facility] Future Scheduled Test 1972 00:00:00 CT Colonography (combo) [code = CT Colonography (combo)] [facility] Future Scheduled Test 1972 00:00:00 Screening for malignant neoplasm of colon (procedure) [code = 846129999] [facility] Future Scheduled Test 1972 00:00:00 Screening for malignant neoplasm of colon (procedure) [code = 929785030] [facility] Future Scheduled Test 1972 00:00:00 Screening for malignant neoplasm of colon (procedure) [code = 558298550] [facility] Future Scheduled Test 1972 00:00:00 Screening for malignant neoplasm of colon (procedure) [code = 647740560] [facility] Future Scheduled Test 1972 00:00:00 Sigmoidoscopy [code = Sigmoidoscopy] [facility] Future Scheduled Test 1972 00:00:00 Screening for malignant neoplasm of breast (procedure) [code = 090902644] [facility] Future Scheduled Test 1972 00:00:00 CT Colonography (combo) [code = CT Colonography (combo)] [facility] Future Scheduled Test 1972 00:00:00 Screening for malignant neoplasm of colon (procedure) [code = 928023090] [facility] Future Scheduled Test 1972 00:00:00 Screening for malignant neoplasm of colon (procedure) [code = 855543724] [facility] Future Scheduled Test 1972 00:00:00 Screening for malignant neoplasm of colon (procedure) [code = 958669379] [facility] Future Scheduled Test 1972 00:00:00 Screening for malignant neoplasm of colon (procedure) [code = [id number]] [facility] Future Scheduled Test 1972 00:00:00 Sigmoidoscopy [code = Sigmoidoscopy] [facility] Future Scheduled Test 1972 00:00:00 Screening for malignant neoplasm of breast (procedure) [code = [id number]] [facility] Future Scheduled Test 1972 00:00:00 CT Colonography (combo) [code = CT Colonography (combo)] [facility] Future Scheduled Test 1972 00:00:00 Screening for malignant neoplasm of colon (procedure) [code = 910164994] [facility] Future Scheduled Test 1972 00:00:00 Screening for malignant neoplasm of colon (procedure) [code = 684555899] [facility] Future Scheduled Test 1972 00:00:00 Screening for malignant neoplasm of colon (procedure) [code = 500723327] [facility] Future Scheduled Test 1972 00:00:00 Screening for malignant neoplasm of colon (procedure) [code = [id number]] [facility] Future Scheduled Test 1972 00:00:00 Screening for malignant neoplasm of breast (procedure) [code = 983416493] [facility] Future Scheduled Test 1972 00:00:00 CT Colonography (combo) [code = CT Colonography (combo)] [facility] Future Scheduled Test 1972 00:00:00 Sigmoidoscopy [code = Sigmoidoscopy] [facility] Future Scheduled Test 1972 00:00:00 Screening for malignant neoplasm of colon (procedure) [code = 849038209] [facility] Future Scheduled Test 1972 00:00:00 Screening for malignant neoplasm of colon (procedure) [code = 797705591] [facility] Future Scheduled Test 1972 00:00:00 Screening for malignant neoplasm of colon (procedure) [code = 215181910] [facility] Future Scheduled Test 1972 00:00:00 Screening for malignant neoplasm of colon (procedure) [code = 251661158] [facility] Future Scheduled Test 1972 00:00:00 Sigmoidoscopy [code = Sigmoidoscopy] [facility] Future Scheduled Test 1972 00:00:00 Screening for malignant neoplasm of breast (procedure) [code = 525622381] [facility] Future Scheduled Test 1972 00:00:00 CT Colonography (combo) [code = CT Colonography (combo)] [facility] Future Scheduled Test 1972 00:00:00 Screening for malignant neoplasm of colon (procedure) [code = 681212176] [facility] Future Scheduled Test 1972 00:00:00 Screening for malignant neoplasm of colon (procedure) [code = 403711192] [facility] Future Scheduled Test 1972 00:00:00 Screening for malignant neoplasm of colon (procedure) [code = 502994762] [facility] Future Scheduled Test 1972 00:00:00 Screening for malignant neoplasm of colon (procedure) [code = 796431850] [facility] Future Scheduled Test 1972 00:00:00 Sigmoidoscopy [code = Sigmoidoscopy] [facility] Future Scheduled Test 1972 00:00:00 Screening for malignant neoplasm of breast (procedure) [code = 482214883] [facility] Future Scheduled Test 1972 00:00:00 CT Colonography (combo) [code = CT Colonography (combo)] [facility] Future Scheduled Test 1972 00:00:00 Screening for malignant neoplasm of colon (procedure) [code = 716218222] [facility] Future Scheduled Test 1972 00:00:00 Screening for malignant neoplasm of colon (procedure) [code = 424513575] [facility] Future Scheduled Test 1972 00:00:00 Screening for malignant neoplasm of colon (procedure) [code = 529890664] [facility] Future Scheduled Test 1972 00:00:00 Screening for malignant neoplasm of colon (procedure) [code = 717505296] [facility] Future Scheduled Test 1972 00:00:00 Sigmoidoscopy [code = Sigmoidoscopy] [facility] Future Scheduled Test 1972 00:00:00 Screening for malignant neoplasm of breast (procedure) [code = 352884660] [facility] Future Scheduled Test 1972 00:00:00 CT Colonography (combo) [code = CT Colonography (combo)] [facility] Future Scheduled Test 1972 00:00:00 Screening for malignant neoplasm of colon (procedure) [code = 403053558] [facility] Future Scheduled Test 1972 00:00:00 Screening for malignant neoplasm of colon (procedure) [code = 466992795] [facility] Future Scheduled Test 1972 00:00:00 Screening for malignant neoplasm of colon (procedure) [code = 896662140] [facility] Future Scheduled Test 1972 00:00:00 Screening for malignant neoplasm of colon (procedure) [code = 399149268] [facility] Future Scheduled Test 1972 00:00:00 Sigmoidoscopy [code = Sigmoidoscopy] [facility] Future Scheduled Test 1972 00:00:00 Screening for malignant neoplasm of breast (procedure) [code = [id number]] [facility] Future Scheduled Test 1972 00:00:00 CT Colonography (combo) [code = CT Colonography (combo)] [facility] Future Scheduled Test 1972 00:00:00 Screening for malignant neoplasm of colon (procedure) [code = 851897661] [facility] Future Scheduled Test 1972 00:00:00 Screening for malignant neoplasm of colon (procedure) [code = 168842231] [facility] Future Scheduled Test 1972 00:00:00 Screening for malignant neoplasm of colon (procedure) [code = 361057414] [facility] Future Scheduled Test 1972 00:00:00 Screening for malignant neoplasm of colon (procedure) [code = 508160291] [facility] Future Scheduled Test 1972 00:00:00 Sigmoidoscopy [code = Sigmoidoscopy] [facility] Future Scheduled Test 1972 00:00:00 Screening for malignant neoplasm of breast (procedure) [code = 424180208] [facility] Future Scheduled Test 1972 00:00:00 CT Colonography (combo) [code = CT Colonography (combo)] [facility] Future Scheduled Test 1972 00:00:00 Screening for malignant neoplasm of colon (procedure) [code = 125149519] [facility] Future Scheduled Test 1972 00:00:00 Screening for malignant neoplasm of colon (procedure) [code = 947345918] [facility] Future Scheduled Test 1972 00:00:00 Screening for malignant neoplasm of colon (procedure) [code = 156965870] [facility] Future Scheduled Test 1972 00:00:00 Screening for malignant neoplasm of colon (procedure) [code = 621839722] [facility] Future Scheduled Test 1972 00:00:00 Sigmoidoscopy [code = Sigmoidoscopy] [facility] Future Scheduled Test 1972 00:00:00 Screening for malignant neoplasm of breast (procedure) [code = 729874398] [facility] Future Scheduled Test 1972 00:00:00 CT Colonography (combo) [code = CT Colonography (combo)] [facility] Future Scheduled Test 1972 00:00:00 Screening for malignant neoplasm of colon (procedure) [code = 158116740] [facility] Future Scheduled Test 1972 00:00:00 Screening for malignant neoplasm of colon (procedure) [code = 468568123] [facility] Future Scheduled Test 1972 00:00:00 Screening for malignant neoplasm of breast (procedure) [code = 121360918] [facility] Future Scheduled Test 1972 00:00:00 Screening for malignant neoplasm of colon (procedure) [code = 224999545] [facility] Future Scheduled Test 1972 00:00:00 CT Colonography (combo) [code = CT Colonography (combo)] [facility] Future Scheduled Test 1972 00:00:00 Screening for malignant neoplasm of colon (procedure) [code = 888418203] [facility] Future Scheduled Test 1972 00:00:00 Screening for malignant neoplasm of colon (procedure) [code = 155417604] [facility] Future Scheduled Test 1972 00:00:00 Screening for malignant neoplasm of colon (procedure) [code = 108938406] [facility] Future Scheduled Test 1972 00:00:00 Screening for malignant neoplasm of colon (procedure) [code = 142465163] [facility] Future Scheduled Test 1972 00:00:00 Sigmoidoscopy [code = Sigmoidoscopy] [facility] Future Scheduled Test 1972 00:00:00 Screening for malignant neoplasm of colon (procedure) [code = 035305948] [facility] Future Scheduled Test 1972 00:00:00 Sigmoidoscopy [code = Sigmoidoscopy] [facility] Future Scheduled Test 1972 00:00:00 Screening for malignant neoplasm of breast (procedure) [code = 317446754] [facility] Future Scheduled Test 1972 00:00:00 CT Colonography (combo) [code = CT Colonography (combo)] [facility] Future Scheduled Test 1972 00:00:00 Screening for malignant neoplasm of colon (procedure) [code = 540731524] [facility] Future Scheduled Test 1972 00:00:00 Screening for malignant neoplasm of colon (procedure) [code = 090609284] [facility] Future Scheduled Test 1972 00:00:00 Screening for malignant neoplasm of colon (procedure) [code = 857057834] [facility] Future Scheduled Test 1972 00:00:00 Screening for malignant neoplasm of colon (procedure) [code = 441930865] [facility] Future Scheduled Test 1972 00:00:00 Sigmoidoscopy [code = Sigmoidoscopy] [facility] Future Scheduled Test 1972 00:00:00 Screening for malignant neoplasm of breast (procedure) [code = 828727921] [facility] Future Scheduled Test 1972 00:00:00 CT Colonography (combo) [code = CT Colonography (combo)] [facility] Future Scheduled Test 1972 00:00:00 Screening for malignant neoplasm of colon (procedure) [code = 377918414] [facility] Future Scheduled Test 1972 00:00:00 Screening for malignant neoplasm of colon (procedure) [code = 000591164] [facility] Future Scheduled Test 1972 00:00:00 Screening for malignant neoplasm of colon (procedure) [code = 049076823] [facility] Future Scheduled Test 1972 00:00:00 Screening for malignant neoplasm of colon (procedure) [code = 836031526] [facility] Future Scheduled Test 1972 00:00:00 Sigmoidoscopy [code = Sigmoidoscopy] [facility] Future Scheduled Test 1972 00:00:00 Screening for malignant neoplasm of breast (procedure) [code = 894318133] [facility] Future Scheduled Test 1972 00:00:00 CT Colonography (combo) [code = CT Colonography (combo)] [facility] Future Scheduled Test 1972 00:00:00 Screening for malignant neoplasm of colon (procedure) [code = 489606444] [facility] Future Scheduled Test 1972 00:00:00 Screening for malignant neoplasm of colon (procedure) [code = 187100366] [facility] Future Scheduled Test 1972 00:00:00 Screening for malignant neoplasm of colon (procedure) [code = 961026475] [facility] Future Scheduled Test 1972 00:00:00 Screening for malignant neoplasm of colon (procedure) [code = 209594800] [facility] Future Scheduled Test 1972 00:00:00 Sigmoidoscopy [code = Sigmoidoscopy] [facility] Future Scheduled Test 1972 00:00:00 Screening for malignant neoplasm of breast (procedure) [code = 579004624] [facility] Future Scheduled Test 1972 00:00:00 CT Colonography (combo) [code = CT Colonography (combo)] [facility] Future Scheduled Test 1972 00:00:00 Screening for malignant neoplasm of colon (procedure) [code = 086821077] [facility] Future Scheduled Test 1972 00:00:00 Screening for malignant neoplasm of colon (procedure) [code = 328363476] [facility] Future Scheduled Test 1972 00:00:00 Screening for malignant neoplasm of colon (procedure) [code = 833547478] [facility] Future Scheduled Test 1972 00:00:00 Screening for malignant neoplasm of colon (procedure) [code = 781185145] [facility] Future Scheduled Test 1972 00:00:00 Sigmoidoscopy [code = Sigmoidoscopy] [facility] Future Scheduled Test 1972 00:00:00 Screening for malignant neoplasm of breast (procedure) [code = 613383807] [facility] Future Scheduled Test 1972 00:00:00 CT Colonography (combo) [code = CT Colonography (combo)] [facility] Future Scheduled Test 1972 00:00:00 Screening for malignant neoplasm of colon (procedure) [code = 233961886] [facility] Future Scheduled Test 1972 00:00:00 Screening for malignant neoplasm of colon (procedure) [code = 510693401] [facility] Future Scheduled Test 1972 00:00:00 Screening for malignant neoplasm of colon (procedure) [code = 066251367] [facility] Future Scheduled Test 1972 00:00:00 Screening for malignant neoplasm of colon (procedure) [code = 146361956] [facility] Future Scheduled Test 1972 00:00:00 Sigmoidoscopy [code = Sigmoidoscopy] [facility] Future Scheduled Test 1972 00:00:00 Screening for malignant neoplasm of breast (procedure) [code = 379868393] [facility] Future Scheduled Test 1972 00:00:00 CT Colonography (combo) [code = CT Colonography (combo)] [facility] Future Scheduled Test 1972 00:00:00 Screening for malignant neoplasm of colon (procedure) [code = 093629430] [facility] Future Scheduled Test 1972 00:00:00 Screening for malignant neoplasm of colon (procedure) [code = 599755087] [facility] Future Scheduled Test 1972 00:00:00 Screening for malignant neoplasm of colon (procedure) [code = 709761730] [facility] Future Scheduled Test 1972 00:00:00 Screening for malignant neoplasm of colon (procedure) [code = 265892376] [facility] Future Scheduled Test 1972 00:00:00 Sigmoidoscopy [code = Sigmoidoscopy] [facility] Future Scheduled Test 1972 00:00:00 Screening for malignant neoplasm of breast (procedure) [code = 704036886] [facility] Future Scheduled Test 1972 00:00:00 CT Colonography (combo) [code = CT Colonography (combo)] [facility] Future Scheduled Test 1972 00:00:00 Screening for malignant neoplasm of colon (procedure) [code = 021115286] [facility] Future Scheduled Test 1972 00:00:00 Screening for malignant neoplasm of colon (procedure) [code = 494541274] [facility] Future Scheduled Test 1972 00:00:00 Screening for malignant neoplasm of colon (procedure) [code = 079563102] [facility] Future Scheduled Test 1972 00:00:00 Screening for malignant neoplasm of colon (procedure) [code = 252948088] [facility] Future Scheduled Test 1972 00:00:00 Sigmoidoscopy [code = Sigmoidoscopy] [facility] Future Scheduled Test 1972 00:00:00 Screening for malignant neoplasm of breast (procedure) [code = 638038641] [facility] Future Scheduled Test 1972 00:00:00 CT Colonography (combo) [code = CT Colonography (combo)] [facility] Future Scheduled Test 1972 00:00:00 Screening for malignant neoplasm of colon (procedure) [code = 395403871] [facility] Future Scheduled Test 1972 00:00:00 Screening for malignant neoplasm of colon (procedure) [code = 918153717] [facility] Future Scheduled Test 1972 00:00:00 Screening for malignant neoplasm of colon (procedure) [code = 840921100] [facility] Future Scheduled Test 1972 00:00:00 Screening for malignant neoplasm of colon (procedure) [code = 063987393] [facility] Future Scheduled Test 1972 00:00:00 Sigmoidoscopy [code = Sigmoidoscopy] [facility] Future Scheduled Test 1972 00:00:00 Screening for malignant neoplasm of breast (procedure) [code = 331444260] [facility] Future Scheduled Test 1972 00:00:00 CT Colonography (combo) [code = CT Colonography (combo)] [facility] Future Scheduled Test 1972 00:00:00 Screening for malignant neoplasm of colon (procedure) [code = 059810378] [facility] Future Scheduled Test 1972 00:00:00 Screening for malignant neoplasm of colon (procedure) [code = 758513996] [facility] Future Scheduled Test 1972 00:00:00 Screening for malignant neoplasm of colon (procedure) [code = 009302047] [facility] Future Scheduled Test 1972 00:00:00 Screening for malignant neoplasm of colon (procedure) [code = 550613172] [facility] Future Scheduled Test 1972 00:00:00 Sigmoidoscopy [code = Sigmoidoscopy] [facility] Future Scheduled Test 1972 00:00:00 Screening for malignant neoplasm of breast (procedure) [code = 307225211] [facility] Future Scheduled Test 1972 00:00:00 CT Colonography (combo) [code = CT Colonography (combo)] [facility] Future Scheduled Test 1972 00:00:00 Screening for malignant neoplasm of colon (procedure) [code = 201278106] [facility] Future Scheduled Test 1972 00:00:00 Screening for malignant neoplasm of colon (procedure) [code = 259996481] [facility] Future Scheduled Test 1972 00:00:00 Screening for malignant neoplasm of colon (procedure) [code = 383122050] [facility] Future Scheduled Test 1972 00:00:00 Screening for malignant neoplasm of colon (procedure) [code = 480536872] [facility] Future Scheduled Test 1972 00:00:00 Sigmoidoscopy [code = Sigmoidoscopy] [facility] Future Scheduled Test 1972 00:00:00 Screening for malignant neoplasm of breast (procedure) [code = 396117206] [facility] Future Scheduled Test 1972 00:00:00 CT Colonography (combo) [code = CT Colonography (combo)] [facility] Future Scheduled Test 1972 00:00:00 Screening for malignant neoplasm of colon (procedure) [code = 168294596] [facility] Future Scheduled Test 1972 00:00:00 Screening for malignant neoplasm of colon (procedure) [code = 410917928] [facility] Future Scheduled Test 1972 00:00:00 Screening for malignant neoplasm of colon (procedure) [code = 907446162] [facility] Future Scheduled Test 1972 00:00:00 Screening for malignant neoplasm of colon (procedure) [code = 761653933] [facility] Future Scheduled Test 1972 00:00:00 Sigmoidoscopy [code = Sigmoidoscopy] [facility] Future Scheduled Test 1972 00:00:00 Screening for malignant neoplasm of breast (procedure) [code = 205039529] [facility] Future Scheduled Test 1972 00:00:00 CT Colonography (combo) [code = CT Colonography (combo)] [facility] Future Scheduled Test 1972 00:00:00 Screening for malignant neoplasm of colon (procedure) [code = 461623176] [facility] Future Scheduled Test 1972 00:00:00 Screening for malignant neoplasm of colon (procedure) [code = 755418517] [facility] Future Scheduled Test 1972 00:00:00 Screening for malignant neoplasm of colon (procedure) [code = 097926752] [facility] Future Scheduled Test 1972 00:00:00 Screening for malignant neoplasm of colon (procedure) [code = 458667004] [facility] Future Scheduled Test 1972 00:00:00 Sigmoidoscopy [code = Sigmoidoscopy] [facility] Future Scheduled Test 1972 00:00:00 Screening for malignant neoplasm of breast (procedure) [code = 722482372] [facility] Future Scheduled Test 1972 00:00:00 CT Colonography (combo) [code = CT Colonography (combo)] [facility] Future Scheduled Test 1972 00:00:00 Screening for malignant neoplasm of colon (procedure) [code = 504367704] [facility] Future Scheduled Test 1972 00:00:00 Screening for malignant neoplasm of colon (procedure) [code = 812707496] [facility] Future Scheduled Test 1972 00:00:00 Screening for malignant neoplasm of colon (procedure) [code = 724882486] [facility] Future Scheduled Test 1972 00:00:00 Screening for malignant neoplasm of colon (procedure) [code = 933596210] [facility] Future Scheduled Test 1972 00:00:00 Sigmoidoscopy [code = Sigmoidoscopy] [facility] Future Scheduled Test 1972 00:00:00 Screening for malignant neoplasm of breast (procedure) [code = 979532529] [facility] Future Scheduled Test 1972 00:00:00 CT Colonography (combo) [code = CT Colonography (combo)] [facility] Future Scheduled Test 1972 00:00:00 Screening for malignant neoplasm of colon (procedure) [code = 900878268] [facility] Future Scheduled Test 1972 00:00:00 Screening for malignant neoplasm of colon (procedure) [code = 200881673] [facility] Future Scheduled Test 1972 00:00:00 Screening for malignant neoplasm of colon (procedure) [code = 931750466] [facility] Future Scheduled Test 1972 00:00:00 Screening for malignant neoplasm of colon (procedure) [code = 765735463] [facility] Future Scheduled Test 1972 00:00:00 Sigmoidoscopy [code = Sigmoidoscopy] [facility] Future Scheduled Test 1972 00:00:00 Screening for malignant neoplasm of breast (procedure) [code = 433756534] [facility] Future Scheduled Test 1972 00:00:00 CT Colonography (combo) [code = CT Colonography (combo)] [facility] Future Scheduled Test 1972 00:00:00 Screening for malignant neoplasm of colon (procedure) [code = 009026210] [facility] Future Scheduled Test 1972 00:00:00 Screening for malignant neoplasm of colon (procedure) [code = 198352287] [facility] Future Scheduled Test 1972 00:00:00 Screening for malignant neoplasm of colon (procedure) [code = 333355905] [facility] Future Scheduled Test 1972 00:00:00 Screening for malignant neoplasm of colon (procedure) [code = 565842310] [facility] Future Scheduled Test 1972 00:00:00 Sigmoidoscopy [code = Sigmoidoscopy] [facility] Future Scheduled Test 1972 00:00:00 Screening for malignant neoplasm of breast (procedure) [code = 734433768] [facility] Future Scheduled Test 1972 00:00:00 CT Colonography (combo) [code = CT Colonography (combo)] [facility] Future Scheduled Test 1972 00:00:00 Screening for malignant neoplasm of colon (procedure) [code = 185731833] [facility] Future Scheduled Test 1972 00:00:00 Screening for malignant neoplasm of colon (procedure) [code = 017261010] [facility] Future Scheduled Test 1972 00:00:00 Screening for malignant neoplasm of colon (procedure) [code = 450731982] [facility] Future Scheduled Test 1972 00:00:00 Screening for malignant neoplasm of colon (procedure) [code = 712157258] [facility] Future Scheduled Test 1972 00:00:00 Sigmoidoscopy [code = Sigmoidoscopy] [facility] Future Scheduled Test 1972 00:00:00 Screening for malignant neoplasm of breast (procedure) [code = 787872720] [facility] Future Scheduled Test 1972 00:00:00 CT Colonography (combo) [code = CT Colonography (combo)] [facility] Future Scheduled Test 1972 00:00:00 Screening for malignant neoplasm of colon (procedure) [code = 775164114] [facility] Future Scheduled Test 1972 00:00:00 Screening for malignant neoplasm of colon (procedure) [code = 046297905] [facility] Future Scheduled Test 1972 00:00:00 Screening for malignant neoplasm of colon (procedure) [code = 957473605] [facility] Future Scheduled Test 1972 00:00:00 Screening for malignant neoplasm of colon (procedure) [code = 255634894] [facility] Future Scheduled Test 1972 00:00:00 Sigmoidoscopy [code = Sigmoidoscopy] [facility] Future Scheduled Test 1972 00:00:00 Screening for malignant neoplasm of breast (procedure) [code = 689975415] [facility] Future Scheduled Test 1972 00:00:00 CT Colonography (combo) [code = CT Colonography (combo)] [facility] Future Scheduled Test 1972 00:00:00 Screening for malignant neoplasm of colon (procedure) [code = 663754671] [facility] Future Scheduled Test 1972 00:00:00 Screening for malignant neoplasm of colon (procedure) [code = 657148868] [facility] Future Scheduled Test 1972 00:00:00 Screening for malignant neoplasm of colon (procedure) [code = 849377010] [facility] Future Scheduled Test 1972 00:00:00 Screening for malignant neoplasm of colon (procedure) [code = 278397187] [facility] Future Scheduled Test 1972 00:00:00 Sigmoidoscopy [code = Sigmoidoscopy] [facility] Future Scheduled Test 1972 00:00:00 Screening for malignant neoplasm of breast (procedure) [code = 621841786] [facility] Future Scheduled Test 1972 00:00:00 CT Colonography (combo) [code = CT Colonography (combo)] [facility] Future Scheduled Test 1972 00:00:00 Screening for malignant neoplasm of colon (procedure) [code = 699913026] [facility] Future Scheduled Test 1972 00:00:00 Screening for malignant neoplasm of colon (procedure) [code = 936082224] [facility] Future Scheduled Test 1972 00:00:00 Screening for malignant neoplasm of colon (procedure) [code = 847248986] [facility] Future Scheduled Test 1972 00:00:00 Screening for malignant neoplasm of colon (procedure) [code = 785161883] [facility] Future Scheduled Test 1972 00:00:00 Sigmoidoscopy [code = Sigmoidoscopy] [facility] Future Scheduled Test 1972 00:00:00 Screening for malignant neoplasm of breast (procedure) [code = 752562392] [facility] Future Scheduled Test 1972 00:00:00 CT Colonography (combo) [code = CT Colonography (combo)] [facility] Future Scheduled Test 1972 00:00:00 Screening for malignant neoplasm of colon (procedure) [code = 940317082] [facility] Future Scheduled Test 1972 00:00:00 Screening for malignant neoplasm of colon (procedure) [code = 690359080] [facility] Future Scheduled Test 1972 00:00:00 Screening for malignant neoplasm of colon (procedure) [code = 855875360] [facility] Future Scheduled Test 1972 00:00:00 Screening for malignant neoplasm of colon (procedure) [code = 114608876] [facility] Future Scheduled Test 1972 00:00:00 Sigmoidoscopy [code = Sigmoidoscopy] [facility] Future Scheduled Test 1972 00:00:00 Screening for malignant neoplasm of breast (procedure) [code = 946125285] [facility] Future Scheduled Test 1972 00:00:00 CT Colonography (combo) [code = CT Colonography (combo)] [facility] Future Scheduled Test 1972 00:00:00 Screening for malignant neoplasm of colon (procedure) [code = 435767670] [facility] Future Scheduled Test 1972 00:00:00 Screening for malignant neoplasm of colon (procedure) [code = 995109825] [facility] Future Scheduled Test 1972 00:00:00 Screening for malignant neoplasm of colon (procedure) [code = 065054993] [facility] Future Scheduled Test 1972 00:00:00 Screening for malignant neoplasm of colon (procedure) [code = 065522895] [facility] Future Scheduled Test 1972 00:00:00 Sigmoidoscopy [code = Sigmoidoscopy] [facility] Future Scheduled Test 1972 00:00:00 Screening for malignant neoplasm of breast (procedure) [code = 221805726] [facility] Future Scheduled Test 1972 00:00:00 CT Colonography (combo) [code = CT Colonography (combo)] [facility] Future Scheduled Test 1972 00:00:00 Screening for malignant neoplasm of colon (procedure) [code = 915916612] [facility] Future Scheduled Test 1972 00:00:00 Screening for malignant neoplasm of colon (procedure) [code = 433215398] [facility] Future Scheduled Test 1972 00:00:00 Screening for malignant neoplasm of colon (procedure) [code = 707001808] [facility] Future Scheduled Test 1972 00:00:00 Screening for malignant neoplasm of colon (procedure) [code = 819312222] [facility] Future Scheduled Test 1972 00:00:00 Sigmoidoscopy [code = Sigmoidoscopy] [facility] Future Scheduled Test 1972 00:00:00 Screening for malignant neoplasm of breast (procedure) [code = 544395354] [facility] Future Scheduled Test 1972 00:00:00 CT Colonography (combo) [code = CT Colonography (combo)] [facility] Future Scheduled Test 1972 00:00:00 Screening for malignant neoplasm of colon (procedure) [code = 046320556] [facility] Future Scheduled Test 1972 00:00:00 Screening for malignant neoplasm of colon (procedure) [code = 806458311] [facility] Future Scheduled Test 1972 00:00:00 Screening for malignant neoplasm of colon (procedure) [code = 853015644] [facility] Future Scheduled Test 1972 00:00:00 Screening for malignant neoplasm of colon (procedure) [code = 400129059] [facility] Future Scheduled Test 1972 00:00:00 Sigmoidoscopy [code = Sigmoidoscopy] [facility] Goal Plan of Care Not e [code = 17416-4] Goal Plan of Care Not e [code = 04077-0] Goal Plan of Care Not e [code = 57056-4] Goal Plan of Care Not e [code = 01666-6] Goal Plan of Care Not e [code = 05015-8] Goal Plan of Care Not e [code = 09434-7] Goal Plan of Care Not e [code = 83024-2] Goal Plan of Care Not e [code = 30888-5] Goal Plan of Care Not e [code = 38575-9] Goal Plan of Care Not e [code = 88510-4] Goal Plan of Care Not e [code = 82475-1] Goal Plan of Care Not e [code = 04034-3] Goal Plan of Care Not e [code = 54262-7] Goal Plan of Care Not e [code = 75508-7] Goal Plan of Care Not e [code = 82943-3] Goal Plan of Care Not e [code = 24418-4] Goal Plan of Care Not e [code = 34061-9] Goal Plan of Care Not e [code = 83331-5] Goal Plan of Care Not e [code = 93376-2] Goal Plan of Care Not e [code = 27995-7] Goal Plan of Care Not e [code = 45433-0] Goal Plan of Care Not e [code = 16917-0] Goal Plan of Care Not e [code = 95458-7] Goal Plan of Care Not e [code = 65486-1] Goal Plan of Care Not e [code = 52637-8] Goal Plan of Care Not e [code = 11657-8] Goal Plan of Care Not e [code = 79696-2] Goal Plan of Care Not e [code = 43900-4] Goal Plan of Care Not e [code = 49883-7] Goal Plan of Care Not e [code = 32904-7] Goal Plan of Care Not e [code = 92831-0] Goal Plan of Care Not e [code = 38404-7] Goal Plan of Care Not e [code = 05211-8] Goal Plan of Care Not e [code = 37488-5] Goal Plan of Care Not e [code = 99602-4] Encounters Start Date/Time End Date/Time Encounter Type Admission Type Attending Clinicians Care Facility Care Department Encounter ID Source 2023-09-07 10:11:[id number] 2023-09-05 10:08:27 [facility] [id number] [facility] 2023-09-05 10:05:12 Inpatient PANKAJ PARRISH [facility] [id number] [facility] 2023-09-04 04:51:30 Inpatient PANKAJ PARRISH [facility] [id number] [facility] 2023-09-04 04:14:55 [facility] [id number] [facility] 2023-09-04 03:08:45 [facility] [id number] [facility] 2023-09-04 02:36:28 Inpatient PANKAJ PARRISH [facility] [id number] [facility] 2023-06-16 09:32:36 [facility] [id number] [facility] 2023-06-16 09:32:09 Inpatient AYDEE DICKENS [facility] [id number] [facility] 2023-06-16 09:31:53 Inpatient AYDEE DICKENS [facility] [id number] [facility] 2023-06-14 07:46:02 Inpatient AYDEE DICKENS [facility] [id number] [facility] 2023-06-14 07:39:22 Inpatient AYDEE DICKENS [facility] [id number] [facility] 2023-06-14 06:38:38 Inpatient AYDEE DICKENS [facility] [id number] [facility] 2023-06-13 13:44:18 [facility] [id number] [facility] 2023-06-13 11:45:24 Inpatient AYDEE DICKENS [facility] [id number] [facility] 2023-05-08 11:21:00 Outpatient EL ADAM GARCIA [facility] Surgery [id number] [facility] 2023-04-01 14:26:29 Inpatient ER THOMAS LOZOYA [facility] [id number] [facility] 2023-03-31 09:24:52 Inpatient ER MARIAH ALDRIDGE [facility] [id number] [facility] 2021-05-20 18:48:04 Emergency [facility] [id number] [facility] 2021-05-20 12:43:40 Emergency [facility] [id number] [facility] 2023-11-10 09:30:00 2023-11-10 09:30:00 Outpatient MYLA MIJARES [id number] [facility] 2023-10-16 11:10:00 2023-10-16 11:10:00 Outpatient SIDDHARTH STANFORD [id number] [facility] 2023-10-06 10:45:00 2023-10-06 10:45:00 Outpatient SARAI JULES [id number] [facility] 2023-10-05 11:30:00 2023-10-05 11:30:00 Outpatient GUSTAVO DELANEY [id number] [facility] 2023-09-30 16:30:00 2023-09-30 16:30:00 Outpatient GUSTAVO DELANEY [id number] [facility] 2023-09-24 00:00:00 2023-09-24 00:00:00 Outpatient GUSTAVO DELANEY [id number] [facility] 2023-09-23 00:00:00 2023-09-23 00:00:00 Outpatient TIFFANY MONTANEZ [facility] MTZ [id number] [facility] 2023-09-22 00:00:00 2023-09-22 00:00:00 Outpatient GUSTAVO DELANEY [facility] [id number] [facility] 2023-09-22 00:00:00 2023-09-22 00:00:00 Outpatient SHY GUILLEN [facility]NTH[facility] [id number] [facility] 2023-09-16 00:00:00 2023-09-16 00:00:00 Outpatient PREGUSTAVO VILLANUEVA CYNTHIA [id number] [facility] 2023-09-16 00:00:00 2023-09-16 00:00:00 Outpatient GUSTAVO DELANEY CYNTHIA [id number] [facility] 2023-09-16 00:00:00 2023-09-16 00:00:00 Outpatient PREGUSTAVO VILLANUEVA CYNTHIA [id number] [facility] 2023-09-14 00:00:00 2023-09-14 00:00:00 Outpatient SHY GUILLEN CYNTHIA [id number] [facility] 2023-09-14 00:00:00 2023-09-14 00:00:00 Outpatient SHY GUILLEN CYNTHIA [id number] [facility] 2023-09-11 11:00:00 2023-09-11 11:00:00 Outpatient YONATAN LORENZOSEY CYNTHIA [id number] [facility] 2023-09-09 00:00:00 2023-09-09 00:00:00 Outpatient CYNTHIA MTZ [id number] [facility] 2023-09-04 00:14:00 2023-09-08 10:51:00 In[facility] y [id number] [facility] 2023-09-04 00:14:00 2023-09-08 10:51:00 Hospital Encounter ER London Loyola, Selin Welch Maria [facility] [id number] [facility] 2023-09-04 00:14:00 2023-09-08 10:51:00 Hospital Encounter London Loyola, Pankaj FrySelin Maria [facility] [id number] [facility] 2023-09-07 18:41:43 2023-09-07 18:41:43 Outpatient SELIN MANE [facility] [id number] [facility] 2023-09-03 20:52:00 2023-09-03 23:44:00 emergency [facility] [id number] 2023-09-03 20:52:00 2023-09-03 23:44:00 Emergency ER PETER JUANY [facility] [id number] [facility] 2023-09-02 00:00:00 2023-09-02 00:00:00 Outpatient PROVIDERTIFFANY [id number] [facility] 2023-09-01 15:30:00 2023-09-01 15:30:00 Outpatient DEMETRIUS TOBAR [id number] [facility] 2023-08-19 00:00:00 2023-08-19 00:00:00 Outpatient KETAN CALVILLO [facility] [id number] [facility] 2023-08-13 00:00:00 2023-08-13 00:00:00 Orders Only Ketan Scruggs [facility] [id number] [facility] 2023-08-13 00:00:00 2023-08-13 00:00:00 Orders Only Ketan Scruggs [facility] [id number] [facility] 2023-08-12 13:49:00 2023-08-12 16:12:00 Emergency BRIAN MONTIEL [facility] [id number] [facility] 2023-08-12 13:49:00 2023-08-12 16:12:00 Emergency Brian Bryan [facility] 1.2.840.114 [id number] 4.2.7.2.686 [id number] [facility] 2023-06-13 03:43:00 2023-06-16 19:45:00 Hospital Encounter ER JeniferCaraReji galanterry [facility] [id number] [facility] 2023-06-13 03:43:00 2023-06-16 19:45:00 Inpatient ER TANIAAngelia AYDEE [facility] Internal Med [id number] [facility] 2023-06-13 03:43:00 2023-06-16 19:45:00 Hospital Encounter Audra Burgessstalin HirschReji galanterry [facility] [id number] [facility] 2023-06-15 00:00:00 2023-06-15 00:00:00 Orders Only System, Provider Not In [facility] [id number] [facility] 2023-06-15 00:00:00 2023-06-15 00:00:00 Orders Only System, Provider Not In [facility] [id number] [facility] 2023-06-13 16:30:06 2023-06-13 16:30:06 Outpatient EL TANIAREJI GalanTerry [facility] [id number] [facility] 2023-06-13 00:00:00 2023-06-13 00:00:00 Orders Only [facility] [id number] [facility] 2023-06-13 00:00:00 2023-06-13 00:00:00 Travel [facility] [id number] [facility] 2023-06-13 00:00:00 2023-06-13 00:00:00 Orders Only [facility] [id number] [facility] 2023-06-13 00:00:00 2023-06-13 00:00:00 Travel [facility] [id number] [facility] 2023-06-12 00:00:00 2023-06-12 00:00:00 Telephone Dallas Gomez [facility] [id number] [facility] 2023-06-12 00:00:00 2023-06-12 00:00:00 Telephone Dallas Gomez [facility] [id number] [facility] 2023-05-28 06:45:00 2023-06-04 17:36:00 Hospital Encounter NICOLETTE Adam Garcia [facility] [id number] [facility] 2023-05-28 06:45:00 2023-06-04 17:36:00 Inpatient ADAM BRANTLEY Surgery [id number] [facility] 2023-05-28 06:45:00 2023-06-04 17:36:00 Hospital Encounter Adam Garcia [facility] [id number] [facility] 2023-06-01 09:10:00 2023-06-01 13:00:00 Anesthesia Event Harry Newsome RaMiley reddyba Hermann [facility] [id number] [facility] 2023-06-01 09:10:00 2023-06-01 13:00:00 Anesthesia Event Harry Newsome RaAntwon reddy Yolettebari [facility] [id number] [facility] 2023-06-01 09:00:00 2023-06-01 11:30:00 Surgery Adam Garcia [facility] [id number] [facility] 2023-06-01 09:00:00 2023-06-01 11:30:00 Surgery Adam Garcia [facility] [id number] [facility] 2023-06-01 09:47:57 2023-06-01 09:47:57 Outpatient ADAM BRANTLEY [facility] [id number] [facility] 2023-06-01 09:40:34 2023-06-01 09:40:34 Outpatient ADAM BRANTLEY [facility] [id number] [facility] 2023-05-31 09:25:55 2023-05-31 23:59:00 Inpatient ADAM BRANTLEY SLE [id number] [facility] 2023-05-31 09:00:00 2023-05-31 23:59:00 Hospital Encounter Adam Garcia [facility] [id number] [facility] 2023-05-31 09:00:00 2023-05-31 23:59:00 Hospital Encounter Adam Garcia [facility] [id number] [facility] 2023-05-28 18:15:29 2023-05-28 18:15:29 Outpatient ADAM BRANTLEY [facility] [id number] [facility] 2023-05-28 08:30:00 2023-05-28 11:54:00 Anesthesia Event Ramya, Yue [facility] [id number] [facility] 2023-05-28 08:30:00 2023-05-28 11:54:00 Anesthesia Event Yue Bui [facility] [id number] [facility] 2023-05-28 11:41:14 2023-05-28 11:41:14 Outpatient ADAM BRANTLEY [facility] [id number] [facility] 2023-05-28 08:30:00 2023-05-28 11:00:00 Surgery Adam Garcia [facility] [id number] [facility] 2023-05-28 08:30:00 2023-05-28 11:00:00 Surgery Adam Garcia [facility] [id number] [facility] 2023-05-28 10:00:47 2023-05-28 10:00:47 Outpatient ADAM BRANTLEY [facility] [id number] [facility] 2023-05-28 00:00:00 2023-05-28 00:00:00 Travel [facility] [id number] [facility] 2023-05-28 00:00:00 2023-05-28 00:00:00 Travel [facility] [id number] [facility] 2023-05-26 09:00:00 2023-05-26 09:00:00 Hospital Encounter Adam Garcia [facility] [id number] [facility] 2023-05-26 09:00:00 2023-05-26 09:00:00 Hospital Encounter Adam Garcia [facility] [id number] [facility] 2023-05-26 00:00:00 2023-05-26 00:00:00 Outpatient EL ADAM GARCIA SLE SLE [id number] [facility] 2023-05-26 00:00:00 2023-05-26 00:00:00 Outpatient EL SLERigoberto SLE [id number] [facility] 2023-05-26 00:00:00 2023-05-26 00:00:00 Travel [facility] [id number] [facility] 2023-05-26 00:00:00 2023-05-26 00:00:00 Travel [facility] [id number] [facility] 2023-05-13 11:43:03 2023-05-13 11:43:03 Outpatient SFA BHARAT [id number] Adria Martínez 2023-05-12 00:00:00 2023-05-12 00:00:00 Orders Only Adam Garcia [facility] [id number] [facility] 2023-05-12 00:00:00 2023-05-12 00:00:00 Orders Only Adam Gacria [facility] [id number] [facility] 2023-05-08 14:11:21 2023-05-08 14:11:21 Outpatient SFA SFA [id number] Adria Martínez 2023-03-29 19:25:00 2023-04-02 20:48:00 Hospital Encounter Connie Gunter, Mariah Lozoya, Thomas Hopkins [facility] [id number] [facility] 2023-03-29 19:25:00 2023-04-02 20:48:00 Inpatient ER THOMAS LOZOYA Neurology [id number] [facility] 2023-03-29 19:25:00 2023-04-02 20:48:00 Hospital Encounter Connie Davey Shireen Kulkarni, Mrinalini Zade [facility] [id number] [facility] 2023-03-31 08:32:56 2023-03-31 00:00:00 Inpatient ER MARIAH ALDRIDGE SLERigoberto SLE [id number] [facility] 2023-03-30 10:24:12 2023-03-30 23:59:00 Outpatient ER CONNIE DAVEY SLERigoberto SLE [id number] [facility] 2023-03-30 09:40:00 2023-03-30 23:59:00 Hospital Encounter Connie Davey [facility] [id number] [facility] 2023-03-30 09:40:00 2023-03-30 23:59:00 Hospital Encounter Connie Davey [facility] [id number] [facility] 2023-03-30 13:46:20 2023-03-30 13:46:20 Outpatient ER MARIAH ALDRIDGE SLERigoberto [facility] [id number] [facility] 2023-03-30 13:46:14 2023-03-30 13:46:14 Outpatient ER MARIAH ALDRIDGE SLERigoberto SLE [id number] [facility] 2023-03-30 10:24:04 2023-03-30 10:24:04 Outpatient ER CONNIE DAVEY SLEH SLEH [id number] [facility] 2023-03-30 00:00:00 2023-03-30 00:00:00 Orders Only [facility] [id number] [facility] 2023-03-30 00:00:00 2023-03-30 00:00:00 Travel [facility] [id number] [facility] 2023-03-30 00:00:00 2023-03-30 00:00:00 Orders Only [facility] [id number] [facility] 2023-03-30 00:00:00 2023-03-30 00:00:00 Travel [facility] [id number] [facility] 2022-12-11 08:56:00 2022-12-11 15:29:00 Emergency X Alfonso ALVARADO [facility] ERT [id number] [facility] 2022-12-11 08:56:00 2022-12-11 15:29:00 Emergency Alfonso Alvarado Lorelei [facility] 1.2.840.114 350.1.13.10 4.2.7.2.686 [id number] [facility] 2022-11-17 17:25:00 2022-11-18 01:19:00 Emergency X ÁNGELA RITCHIE [facility] ERT [id number] [facility] 2022-11-17 17:25:00 2022-11-18 01:19:00 Emergency Ritchie Warren E [facility] 1.2.840.114 350.1.13.10 4.2.7.2.686 [id number] [facility] 2022-08-28 00:00:00 2022-08-28 00:00:00 Patient Outreach Shy Beckman [facility] 1.2.840.114 350.1.13.10 4.2.7.2.686 [id number] [facility] 2022-08-20 00:00:00 2022-08-20 00:00:00 Patient Outreach Shy Beckman [facility] 1.2.840.114 350.1.13.10 4.2.7.2.686 [id number] [facility] 2022-08-02 17:30:00 2022-08-03 14:29:00 Hospital Encounter Halima Guan Kinjal M Ibe, Chimkama Araceli Demetrius [facility] [id number] [facility] 2022-08-02 17:30:00 2022-08-03 14:29:00 Outpatient ER PARRISH WHEATLEY Neurology [id number] [facility] 2022-08-03 00:00:00 2022-08-03 00:00:00 Orders Only [facility] [id number] [facility] 2022-08-02 00:00:00 2022-08-02 00:00:00 Travel [facility] [id number] [facility] 2022-07-31 11:42:00 2022-08-01 21:48:00 Inpatient X LORENZA LOWRY [facility] [id number] [facility] 2022-07-31 11:42:00 2022-08-01 21:48:00 Hospital Encounter Sav Rondon Yaman [facility] 1.2.840.114 350.1.13.10 4.2.7.2.686 [id number] [facility] 2022-08-01 00:00:00 2022-08-01 00:00:00 Transition of Care Corey Maria Teresaagata [facility] 1.2.840.114 350.1.13.10 4.2.7.2.686 [id number] [facility] 2022-07-28 14:41:38 2022-07-28 14:41:38 Outpatient [facility] [id number] Adria Galan Mauricio 2022-07-28 00:00:00 2022-07-28 00:00:00 Outpatient Visit [id number] 2022-07-24 13:24:40 2022-07-24 13:24:40 Outpatient [facility] 0105 Adria Martínez 2022-05-23 14:51:01 2022-05-23 14:51:01 Outpatient [facility] 1104 Adria aMrtínez 2022-05-23 00:00:00 2022-05-23 00:00:00 Outpatient Visit [id number] 2022-05-04 20:22:00 2022-05-08 14:44:00 [facility] [id number] [facility] 2022-05-04 20:22:00 2022-05-08 14:44:00 Emergency BrinerBrandyn [facility] 1..114 350.1.13.10 4.2.7.2.686 [id number] [facility] 2022-04-13 13:06:00 2022-04-15 15:00:00 Inpatient X [facility]RAD [facility] [id number] [facility] 2022-04-13 13:06:00 2022-04-15 15:00:00 Hospital Encounter Sapna Vargas [facility] 1..114 350.1.13.10 4.2.7.2.686 [id number] [facility] 2022-02-19 10:20:00 2022-02-19 10:30:00 Imm/Inj Visit Santos MoapaJose Toure [facility] 1..114 350.1.13.10 4.2.7.2.686 [id number] [facility] 2022-02-19 10:20:00 2022-02-19 10:20:00 Outpatient R PASHAJOSE REVELES [facility] [id number] [facility] 2021-11-23 15:07:00 2021-11-23 17:03:00 Emergency X STEFANOLEYDI NICHELLE [facility] ERT [id number] [facility] 2021-11-23 15:07:00 2021-11-23 17:03:00 Emergency Sav Rondon Nichelle Virk [facility] 1.114 350.1.13.10 4.2.7.2.686 [id number] [facility] 2021-11-21 09:40:00 2021-11-21 09:40:00 Outpatient Terry [facility] [id number] [facility] 2021-05-24 09:30:00 2021-05-24 09:30:00 Outpatient Terry KABAABDIRIZAK [facility] [id number] [facility] 2021-05-24 08:47:51 2021-05-24 08:57:51 Imm/Inj Visit Vaccine, Moapa Dangelo Pasha [facility] 1.114 350.1.13.10 4.2.7.2.686 [id number] [facility] 2021-05-03 09:40:00 2021-05-03 09:59:35 Outpatient Terry KABAABDIRIZAK JOSE [facility] [id number] [facility] 2021-05-03 09:17:43 2021-05-03 09:59:35 Imm/Inj Visit Vaccine, [facility] 1.114 350.1.13.10 4.2.7.2.686 [id number] [facility] 2021-04-16 00:00:00 2021-04-16 00:00:00 Orders Only Doctor Unassigned, [place] [facility] 1.114 350.1.13.10 4.2.7.2.686 [id number] [facility] 2021-03-17 00:00:00 2021-03-17 00:00:00 Telephone Miky Nava [facility] 1.2.840.114 350.1.13.10 4.2.7.2.686 [id number] [facility] 2021-03-16 20:08:00 2021-03-16 23:24:00 Emergency Palmer Fabrice [facility] 1.2840.114 350.1.13.10 4.2.7.2.686 [id number] [facility] 2021-03-14 18:59:34 2021-03-14 20:19:13 Urgent Care Lydia Desouza, Attending [facility] 1..840.114 350.1.13.10 4.2.7.2.686 [id number] [facility] 2021-03-14 19:00:00 2021-03-14 19:00:00 Outpatient Terry UNKNOWN, ATTENDING [facility] [id number] [facility] 2021-02-19 10:49:00 2021-02-19 14:48:00 Emergency Anali Monroy S [facility] 1.2.840.114 350.1.13.10 4.2.7.2.686 [id number] [facility] 2019-03-09 00:00:00 2019-03-09 00:00:00 Yehuda Zimmerman [facility] Professio nal Building 1..840.114 350.1.13.10 4.2.7.2.686 [id number] 2019-03-09 00:00:00 2019-03-09 00:00:00 [facility] 1.2.840.114 350.1.13.10 4.2.7.2.686 [id number] [facility] Results Test Description Test Time Test Comments Results Result Co mments Source BLOOD [id number] 07:00:10* Test Item Value Reference Range Interpretation Comme nts CULTURE (BEAKER) (test code = 1095) No growth in 5 days XR KNEE 3 VIEWS [id number] 09:27:00 [facility] 1970 Sex: FXR KNEE 3 VIEWS LEFT CLINICAL INDICATION: S/p fall COMPARISON: NoneFINDINGS: 3views of the left knee.There is no fracture or malalignment. The femorotibial andfemoropatellar joint spaces are intact. No joint fluid is demonstrated.Surrounding soft tissues are unremarkable. Scattered atheroscleroticvascular calcifications.IMPRESSION: No acute fracture or malalignment of the knee Electronically Signed By: Maxim Sultana09/08/2023 09:29 CDTWorkstation Name: [id number] 08:53:50* Test Item Value Reference Range Interpretation Comme [facility] POC-Glucose Meter (test code = 1538) 101 mg/dL 70-110 : TESTED AT [facility] [address] [facility], [address]: Design Assembler/Heliarc Welder ID = [id number] for Umeh, Akumbu Lab Interpretation (test code = 82238-5) [facility] [id number] 08:53:50* Test Item Value Reference Range Interpretation Comme nts POC-Glucose Meter (test code = 1538) 101 mg/dL 70-110 : TESTED AT [address], [address]: Design Assembler/Heliarc Welder ID = [id number] for Umeh, Akumbu Lab Interpretation (test code = 58624-6) [facility] [id number] 08:53:50* Test Item Value Reference Range Interpretation Comme nts POC-Glucose Meter (test code = 1538) 101 mg/dL 70-110 : TESTED AT [address], [address]: Design Assembler/Heliarc Welder ID = [id number] for Umeh, Akumbu Lab Interpretation (test code = 24054-1) [facility] [id number] 08:53:50* Test Item Value Reference Range Interpretation Comme nts POC-Glucose Meter (test code = 1538) 101 mg/dL 70-110 : TESTED AT [address], [address]: Design Assembler/Heliarc Welder ID = [id number] for Umeh, Akumbu Lab Interpretation (test code = 81593-3) [facility] [id number] 08:53:50* Test Item Value Reference Range Interpretation Comme nts POC-Glucose Meter (test code = 1538) 101 mg/dL 70-110 : TESTED AT [address], [address]: Design Assembler/Heliarc Welder ID = [id number] for Umeh, Akumbu Lab Interpretation (test code = 28168-4) [facility] [id number] 08:53:50* Test Item Value Reference Range Interpretation Comme nts POC-Glucose Meter (test code = 1538) 101 mg/dL 70-110 : TESTED AT [address], [address]: Design Assembler/Heliarc Welder ID = [id number] for Umeh, Akumbu Lab Interpretation (test code = 41199-8) Normal [facility] [id number] 08:53:50* Test Item Value Reference Range Interpretation Comme nts POC-GLUCOSE METER (BEAKER) (test code = 1538) 101 mg/dL 70-110 : TESTED AT [address], [address]: Design Assembler/Heliarc Welder ID = [id number] for Marie Delacruz BASIC METABOLIC [id number] 05:40:45* Test Item Value Reference Range Interpretation [...] GFR is not applicable for dialysis patients Design Assembler ID - [id number] 05:40:45* Test Item Value Reference Range Interpretation Comme nts MAGNESIUM (BEAKER) (test cod e = 627) 2.1 mg/dL 1.6-2.6 Design Assembler ID - [id number] 05:40:45* Test Item Value Reference Range Interpretation Comme nts PHOSPHORUS (BEAKER) (test co de = 604) 5.0 mg/dL 2.3-4.7 H Design Assembler ID - ADMINCBC W/PLT COUNT & AUTO [id number] 04:49:23* Test Item Value Reference Range Interpretation [...] code = 2801) 0.40 % 0.00-1.00 POCT-GLUCOSE [id number] 21:40:23* Test Item Value Reference Range Interpretation Comme nts POC-GLUCOSE METER (BEAKER) (test code = 1538) 144 mg/dL 70-110 H : TESTED AT [facility] [address] [facility] [place], [address]: Design Assembler/Heliarc Welder ID = [id number] for Diana Baeza [id number] 04:05:54* Test Item Value Reference Range Interpretation Comme nts MAGNESIUM (BEAKER) (test code = 627) 2.0 mg/dL 1.6-2.6 Specimen sligh tly hemolyzed Design Assembler ID - MADELINE [id number] 04:05:54* Test Item Value Reference Range Interpretation Comme nts PHOSPHORUS (BEAKER) (test code = 604) 4.5 mg/dL 2.3-4.7 Specimen sligh tly hemolyzed Design Assembler ID - MADELINE WBASIC METABOLIC [id number] 04:05:54* Test Item Value Reference Range Interpretation [...] GFR is not applicable for dialysis patients Design Assembler GEOVANNA CORREA WCBC W/PLT COUNT & AUTO [id number] 03:40:48* Test Item Value Reference Range Interpretation [...] code = 2801) 0.30 % 0.00-1.00 POCT-GLUCOSE [id number] 21:28:35* Test Item Value Reference Range Interpretation Comme nts POC-GLUCOSE METER (BEAKER) (test code = 1538) 127 mg/dL 70-110 H : TESTED AT [place] [id number] [facility], [address]: Design Assembler/Heliarc Welder ID = [id number] for Ryan Morin POCT-GLUCOSE [id number] 18:49:21* Test Item Value Reference Range Interpretation Comme nts POC-GLUCOSE METER (BEAKER) (test code = 1538) 122 mg/dL 70-110 H : TESTED AT [address], [address]: Design Assembler/Heliarc Welder ID = [id number] for Lauren Santillan POCT-GLUCOSE [id number] 13:27:27* Test Item Value Reference Range Interpretation Comme nts POC-GLUCOSE METER (BEAKER) (test code = 1538) 130 mg/dL 70-110 H : TESTED AT [place] [id number] [facility], [address]: Design Assembler/Heliarc Welder ID = [id number] for Lauren Santillan [id number] 09:09:14* Test Item Value Reference Range Interpretation Comme nts MAGNESIUM (BEAKER) (test cod e = 627) 2.2 mg/dL 1.6-2.6 [id number] 09:09:14* Test Item Value Reference Range Interpretation Comme nts PHOSPHORUS (BEAKER) (test co de = 604) 4.8 mg/dL 2.3-4.7 H BASIC METABOLIC [id number] 09:09:14* Test Item Value Reference Range Interpretation [...] is not applicable for dialysis patients POCT-GLUCOSE [id number] 08:33:30* Test Item Value Reference Range Interpretation Comme [facility] POC-GLUCOSE METER (BEAKER) (test code = 1538) 132 mg/dL 70-110 H : TESTED AT [facility] [address] [facility], [address]: Design Assembler/Heliarc Welder ID = [id number] for Lauren Santillan CBC W/PLT COUNT & AUTO [id number] 05:47:59* Test Item Value Reference Range Interpretation [...] code = 2801) 0.40 % 0.00-1.00 POCT-GLUCOSE [id number] 21:35:37* Test Item Value Reference Range Interpretation Comme nts POC-GLUCOSE METER (BEAKER) (test code = 1538) 129 mg/dL 70-110 H : TESTED AT [facility] [address] [facility] [place], [address]: Design Assembler/Heliarc Welder ID = [id number] for Ryan Morin MR BRAIN WITH & WITHOUT IV [id number] 15:49:58 [facility] : 1970 Sex: FMR BRAIN [...] Signed By: Zeinab Dempsey09/05/2023 15:53 CDTWorkstation Name: [id number] METER 2023-09-05 08:34:25* Test Item Value Reference Range Interpretation Comme nts POC-GLUCOSE METER (BEAKER) (test code = 1538) 115 mg/dL 70-110 H : TESTED AT [facility] [address] [facility], [address]: Design Assembler/Heliarc Welder ID = [id number] for DOMINGA AMADOR BASIC METABOLIC [id number] 06:06:56* Test Item Value Reference Range Interpretation [...] GFR is not applicable for dialysis patients Design Assembler ID - [id number] 06:06:56* Test Item Value Reference Range Interpretation Comme nts MAGNESIUM (BEAKER) (test cod e = 627) 2.2 mg/dL 1.6-2.6 Design Assembler ID - [id number] 06:06:56* Test Item Value Reference Range Interpretation Comme nts PHOSPHORUS (BEAKER) (test co de = 604) 3.8 mg/dL 2.3-4.7 Design Assembler ID - ADMINCBC W/PLT COUNT & AUTO [id number] 05:29:32* Test Item Value Reference Range Interpretation [...] code = 2801) 0.50 % 0.00-1.00 POCT-GLUCOSE [id number] 04:55:18* Test Item Value Reference Range Interpretation Comme nts POC-GLUCOSE METER (BEAKER) (test code = 1538) 99 mg/dL 70-110 : TESTED AT [facility] [address] [facility], [address]: Design Assembler/Heliarc Welder ID = [id number] for Rosa Morinn POCT-GLUCOSE [id number] 21:49:23* Test Item Value Reference Range Interpretation Comme nts POC-GLUCOSE METER (BEAKER) (test code = 1538) 124 mg/dL 70-110 H : TESTED AT [facility] [address] [facility], [address]: Design Assembler/Heliarc Welder ID = [id number] for Rosa Morinn POCT-GLUCOSE [id number] 15:55:53* Test Item Value Reference Range Interpretation Comme nts POC-GLUCOSE METER (BEAKER) (test code = 1538) 126 mg/dL 70-110 H : TESTED AT [facility] [address] [facility], [address]: Design Assembler/Heliarc Welder ID = [id number] for Tramaine Daniels [id number] 12:37:56* Test Item Value Reference Range Interpretation Comme nts PROCALCITONIN (BEAKER) (test code = 3036) < ng/mL <0.05 SEPSIS RISK (ng/mL)Low: 0.05-0.50Intermediate: 0.51-2.00High: >=2.01SARS- CoV2/Influenza/RSV [id number] 12:18:09* Test Item Value Reference Range Interpretation Comments SARS-COV2/RT-PCR (test code = 79143-5) Negative Negative The SARS-CoV-2 target nucleic acids [...] provider. Influenza A RT-PCR (test code = 76309-3) Negative Negative The Flu A target nucleic acids are not detected in this specimen. Influenza B RT-PCR (test code = 38502-4) Negative Negative The Flu B target nucleic acids are not detected in this specimen. RSV by RT-PCR (test code = 56060-8) Negative Negative The RSV target nucleic acids [...] the Act. Fact Sheet for Healthcare Providers:https://w Ayalogic/Docu ments/Xpert%20Xpres s%20SARS%20CoV-2/Fa ct%20Sheets/302-390 2%74DPMC-JHK-2%20HE ALTHCARE%20PROVIDER S%20FACT%20SHEET.pd f Fact Sheet for Healthcare Patients:https://FlyReadyJet/Docum ents/Xpert%20Xpress %20SARS%20Cov-2/Fac t%20Sheets/302-3801 %36UOXR-DWQ-7%20PAT IENT%20FACT%20SHEET .pdf Lab Interpretation (test code = 02374-1) [facility] [id number] 12:18:09* Test Item Value Reference Range Interpretation Comments SARS-COV2/RT-PCR (test code = 90959-6) Negative Negative The SARS-CoV-2 target nucleic acids [...] provider. Influenza A RT-PCR (test code = 19063-7) Negative Negative The Flu A target nucleic acids are not detected in this specimen. Influenza B RT-PCR (test code = 92202-3) Negative Negative The Flu B target nucleic acids are not detected in this specimen. RSV by RT-PCR (test code = 15817-3) Negative Negative The RSV target nucleic acids [...] the Act. Fact Sheet for Healthcare Providers:https://w Ayalogic/Docu ments/Xpert%20Xpres s%20SARS%20CoV-2/Fa ct%20Sheets/302-390 2%83RQVZ-KUZ-3%20HE ALTHCARE%20PROVIDER S%20FACT%20SHEET.pd f Fact Sheet for Healthcare Patients:https://maria elena ClipClock/Docum ents/Xpert%20Xpress %20SARS%20Cov-2/Fac t%20Sheets/302-3801 %54KHTO-EIJ-6%20PAT IENT%20FACT%20SHEET .pdf Lab Interpretation (test code = 60679-7) [facility] [id number] 12:18:09* Test Item Value Reference Range Interpretation Comments SARS-COV2/RT-PCR (test code = 58859-5) Negative Negative The SARS-CoV-2 target nucleic acids [...] provider. Influenza A RT-PCR (test code = 83616-1) Negative Negative The Flu A target nucleic acids are not detected in this specimen. Influenza B RT-PCR (test code = 18562-4) Negative Negative The Flu B target nucleic acids are not detected in this specimen. RSV by RT-PCR (test code = 37087-5) Negative Negative The RSV target nucleic acids [...] the Act. Fact Sheet for Healthcare Providers:https://w Ayalogic/Docu ments/Xpert%20Xpres s%20SARS%20CoV-2/Fa ct%20Sheets/302-390 2%83FRWK-TRH-0%20HE ALTHCARE%20PROVIDER S%20FACT%20SHEET.pd f Fact Sheet for Healthcare Patients:https://maria elena ClipClock/Docum ents/Xpert%20Xpress %20SARS%20Cov-2/Fac t%20Sheets/302-3801 %35HRFO-QYF-6%20PAT IENT%20FACT%20SHEET .pdf Lab Interpretation (test code = 09763-6) [facility]V [id number] 12:18:09* Test Item Value Reference Range Interpretation Comments SARS-COV2/RT-PCR (test code = 48993-7) Negative Negative The SARS-CoV-2 target nucleic acids [...] provider. Influenza A RT-PCR (test code = 00418-0) Negative Negative The Flu A target nucleic acids are not detected in this specimen. Influenza B RT-PCR (test code = 26212-3) Negative Negative The Flu B target nucleic acids are not detected in this specimen. RSV by RT-PCR (test code = 86621-9) Negative Negative The RSV target nucleic acids [...] SARS-CoV-2/Flu/RSV by their healthcare provider. Results from [facility] Xpert Xpress SARS-CoV-2/Flu/RSV test should be correlated [...] the Act. Fact Sheet for Healthcare Providers:https://w Ayalogic/Docu ments/Xpert%20Xpres s%20SARS%20CoV-2/Fa ct%20Sheets/302-390 2%23XAPF-LBQ-0%20HE ALTHCARE%20PROVIDER S%20FACT%20SHEET.pd f Fact Sheet for Healthcare Patients:https://maria elena ClipClock/Docum ents/Xpert%20Xpress %20SARS%20Cov-2/Fac t%20Sheets/302-3801 %41CCHH-OJG-3%20PAT IENT%20FACT%20SHEET .pdf Lab Interpretation (test code = 98132-3) [facility] [id number] 12:18:09* Test Item Value Reference Range Interpretation Comments SARS-COV2/RT-PCR (test code = 28469-2) Negative Negative The SARS-CoV-2 target nucleic acids [...] provider. Influenza A RT-PCR (test code = 46337-0) Negative Negative The Flu A target nucleic acids are not detected in this specimen. Influenza B RT-PCR (test code = 30230-7) Negative Negative The Flu B target nucleic acids are not detected in this specimen. RSV by RT-PCR (test code = 29133-1) Negative Negative The RSV target nucleic acids [...] the Act. Fact Sheet for Healthcare Providers:https://w ww.barcoo.Aventeon/Docu ments/Xpert%20Xpres s%20SARS%20CoV-2/Fa ct%20Sheets/302-390 2%27GDHP-IXB-7%20HE ALTHCARE%20PROVIDER S%20FACT%20SHEET.pd f Fact Sheet for Healthcare Patients:https://maria elena ClipClock/Docum ents/Xpert%20Xpress %20SARS%20Cov-2/Fac t%20Sheets/302-3801 %92JIKF-BYM-2%20PAT IENT%20FACT%20SHEET .pdf Lab Interpretation (test code = 48327-8) [facility] [id number] 12:18:09* Test Item Value Reference Range Interpretation Comments SARS-COV2/RT-PCR (test code = 21607-6) Negative Negative The SARS-CoV-2 target nucleic acids [...] provider. Influenza A RT-PCR (test code = 19812-9) Negative Negative The Flu A target nucleic acids are not detected in this specimen. Influenza B RT-PCR (test code = 74651-5) Negative Negative The Flu B target nucleic acids are not detected in this specimen. RSV by RT-PCR (test code = 19727-2) Negative Negative The RSV target nucleic acids [...] the Act. Fact Sheet for Healthcare Providers:https://w Ayalogic/Docu ments/Xpert%20Xpres s%20SARS%20CoV-2/Fa ct%20Sheets/302-390 2%43XYPH-VGB-1%20HE ALTHCARE%20PROVIDER S%20FACT%20SHEET.pd f Fact Sheet for Healthcare Patients:https://FlyReadyJet/Docum ents/Xpert%20Xpress %20SARS%20Cov-2/Fac t%20Sheets/302-3801 %99TIOL-YUL-6%20PAT IENT%20FACT%20SHEET .pdf Lab Interpretation (test code = 90355-6) [facility]INFLUENZA/RSV [id number] 12:18:09* Test Item Value Reference Range Interpretation Comme nts SARS-COV2/RT-PCR (test code = 3296471) Negative Negative The SARS-CoV-2 t arget nucleic [...] provider. INFLUENZA A RT-PCR (test code = 4493587) Negative Negative The Flu A target nucleic acids are not detected in this specimen. INFLUENZA B RT-PCR (test code = 2650776) Negative Negative The Flu B target nucleic acids are not detected in this specimen. RSV RT-PCR (test code = 3227242) Negative Negative The RSV target n ucleic [...] SARS-CoV-2/Flu/RSV by their healthcare provider. Results from [facility] Xpert Xpress SARS-CoV-2/Flu/RSV test should be correlated [...] 564(g) of the Act.Fact Sheet for Healthcare Providers:https://www.Curiosidy/Documents/Xpert%20Xpress%20SARS%20CoV-2/Fact%2 0Sheets/302-3902%52CMKR-KZW-4%20HEALTHCARE%20PROVIDERS%20FACT%20SHEET.pdfFact Sheet for Healthcare Patients:https://ww w.Curiosidy/Documents/Xpert%20Xpress%20SARS%20Cov-2/Fact%20Sheets/302-3801%20S ARS-COV-2%20PATIENT%20FACT%20SHEET.pdfPOCT-GLUCOSE [id number] 11:08:35* Test Item Value Reference Range Interpretation Comme nts POC-GLUCOSE METER (BEAKER) (test code = 1538) 111 mg/dL 70-110 H : TESTED AT [facility] [address] [facility], [address]: Design Assembler/Heliarc Welder ID = [id number] for Diana DanielsRangelConstance POCT-GLUCOSE [id number] 08:16:42* Test Item Value Reference Range Interpretation Comme nts POC-GLUCOSE METER (BEAKER) (test code = 1538) 108 mg/dL 70-110 : TESTED AT [facility] [address] [facility], [address]: Design Assembler/Heliarc Welder ID = [id number] for Beata Vargas MR CERVICAL SPINE WITHOUT IV [id number] 07:58:49 [facility] : [...] spine.Posterior ligament ossifications at the calcifications at Q21-W66clyjpvk moderate spinal canal stenosisPosterior disc osteophyte at the T11-T12 level causing mild spinal canalstenosisThe spinal cord is normal in caliber and signal intensity. There is no significant foraminal or spinal canal stenosis.2.1 x 2.3 cm left adrenal nodule, incompletely characterizedParaspinal soft tissues are unremarkable.Lumbar spine:Postoperative changes from posterior decompression at the L3 and A6dixeec. A 1.3 x 1.5 cm (AP by [...] Signed By: Maxim Sultana09/04/2023 08:00 CDTWorkstation Name: [id number] THORACIC SPINE WITHOUT IV [id number] 07:58:49 [facility] ESTELLE : 1970 Sex: FMR [...] spine.Posterior ligament ossifications at the calcifications at J88-F89caknauf moderate spinal canal stenosisPosterior disc osteophyte at the T11-T12 level causing mild spinal canalstenosisThe spinal cord is normal in caliber and signal intensity. There is no significant foraminal or spinal canal stenosis.2.1 x 2.3 cm left adrenal nodule, incompletely characterizedParaspinal soft tissues are unremarkable.Lumbar spine:Postoperative changes from posterior decompression at the L3 and M0exzotz. A 1.3 x 1.5 cm (AP by [...] Signed By: Maxim Sultana09/04/2023 08:00 CDTWorkstation Name: [id number] LUMBAR SPINE WITHOUT IV [id number] 07:58:49 [facility]UE HEATHERGRACIELA MCCABE : 1970 Sex: FMR [...] spine.Posterior ligament ossifications at the calcifications at N78-B98atqsmlp moderate spinal canal stenosisPosterior disc osteophyte at the T11-T12 level causing mild spinal canalstenosisThe spinal cord is normal in caliber and signal intensity. There is no significant foraminal or spinal canal stenosis.2.1 x 2.3 cm left adrenal nodule, incompletely characterizedParaspinal soft tissues are unremarkable.Lumbar spine:Postoperative changes from posterior decompression at the L3 and Y9xmeojj. A 1.3 x 1.5 cm (AP by [...] Signed By: Maxim Sultana09/04/2023 08:00 CDTWorkstation Name: [id number] 2023-09-04 07:46:14* Test Item Value Reference Range Interpretation Comme nts FERRITIN (BEAKER) (test code = 361) 31.77 ng/mL 5.00-275.00 Design Assembler ID - [id number], TIBC, % SAT. (WITHOUT FERRITIN)2023-09-04 07:24:52* Test Item Value Reference Range Interpretation Comme nts IRON (BEAKER) (test code = 547) 22.0 ug/dL 40.0-160.0 L TOTAL IRON BINDING CAPACITY (BEAKER) (test code = 769) 369 ug/dL 250-450 IRON % SATURATION (2) (BEAKE R) (test code = 2590) 6 % 20-55 L Design Assembler ID - [id number] LUMBAR SPINE WITHOUT IV [id number] 05:42:45 [facility] : [...] spine:Bones/alignment: Age- indeterminate nondisplaced fracture of the F1jcrdbrgdf elements, predominantly i nvolving the lamina and [...] Signed By: Suzan Weaver09/04/2023 05:45 CDTWorkstation Name: [id number] THORACIC SPINE WITHOUT IV [id number] 05:42:45 [facility] : 1970 Sex: FEXAM: [...] spine:Bones/alignment: Age- indeterminate nondisplaced fracture of the S1ripdcripi elements, predominantly i nvolving the lamina and [...] Signed By: Suzan Weaver09/04/2023 05:45 CDTWorkstation Name: [id number] 04:44:34* Test Item Value Reference Range Interpretation Comme nts FIBRINOGEN LEVEL (BEAKER) (t est code = 658) 410 mg/dl 225-434 Urinalysis without Oycuspjkrig6630-57-40 03:58:52* Test Item Value Reference Range Interpretation Comme nts Color, UA (test code = 5778-6) Light Yellow Clarity, UA (test code = 5767-9) Hazy Specific [place], UA (test code = 5811-5) 1.017 1.001-1.035 pH, UA (test code = 5803-2) 6.0 5.0-8.0 Protein, UA (test code = 03261-5) 10 mg/dL Negative A Glucose, UA (test code = 365) Negative Negative Ketones, UA (test code = 2514-8) Trace Negative A Bilirubin, UA (test code = 44803-2) Negative Negative Blood, UA (test code = 43902-3) Trace Negative A Nitrite, UA (test code = 5802-4) Negative Negative Leukocytes, UA (test code = 5799-2) Negative Negative Urobilinogen, UA (test code = 38566-3) 0.2 0.2-1.0 Specimen Source (test code = 2795) LYNDSAY (test code = LYNDSAY) Design Assembler ID - [auto]Design Assembler ID - tech Lab Interpretation (test code = 70412-0) [facility] Knyejjuvpzu1262-35-39 03:58:52* Test Item Value Reference Range Interpretation Comme nts Color, UA (test code = 5778-6) Light Yellow Clarity, UA (test code = 5767-9) Hazy Specific [place], UA (test code = 5811-5) 1.017 1.001-1.035 pH, UA (test code = 5803-2) 6.0 5.0-8.0 Protein, UA (test code = 78904-5) 10 mg/dL Negative A Glucose, UA (test code = 365) Negative Negative Ketones, UA (test code = 2514-8) Trace Negative A Bilirubin, UA (test code = 94469-4) Negative Negative Blood, UA (test code = 45161-0) Trace Negative A Nitrite, UA (test code = 5802-4) Negative Negative Leukocytes, UA (test code = 5799-2) Negative Negative Urobilinogen, UA (test code = 53808-7) 0.2 0.2-1.0 Specimen Source (test code = 2795) LYNDSAY (test code = LYNDSAY) Design Assembler ID - [auto]Design Assembler ID - tech Lab Interpretation (test code = 72634-4) [facility] Aqacwoxzeak4444-78-65 03:58:52* Test Item Value Reference Range Interpretation Comme nts Color, UA (test code = 5778-6) Light Yellow Clarity, UA (test code = 5767-9) Hazy Specific [place], UA (test code = 5811-5) 1.017 1.001-1.035 pH, UA (test code = 5803-2) 6.0 5.0-8.0 Protein, UA (test code = 35387-0) 10 mg/dL Negative A Glucose, UA (test code = 365) Negative Negative Ketones, UA (test code = 2514-8) Trace Negative A Bilirubin, UA (test code = 62940-1) Negative Negative Blood, UA (test code = 32070-2) Trace Negative A Nitrite, UA (test code = 5802-4) Negative Negative Leukocytes, UA (test code = 5799-2) Negative Negative Urobilinogen, UA (test code = 71284-9) 0.2 0.2-1.0 Specimen Source (test code = 2795) LYNDSAY (test code = LYNDSAY) Design Assembler ID - [auto]Design Assembler ID - tech Lab Interpretation (test code = 32449-3) [facility]normal [facility] Sqjtnrlxfee8840-62-38 03:58:52* Test Item Value Reference Range Interpretation Comme nts Color, UA (test code = 5778-6) Light Yellow Clarity, UA (test code = 5767-9) Hazy Specific [place], UA (test code = 5811-5) 1.017 1.001-1.035 pH, UA (test code = 5803-2) 6.0 5.0-8.0 Protein, UA (test code = 08747-3) 10 mg/dL Negative A Glucose, UA (test code = 365) Negative Negative Ketones, UA (test code = 2514-8) Trace Negative A Bilirubin, UA (test code = 35609-0) Negative Negative Blood, UA (test code = 79856-6) Trace Negative A Nitrite, UA (test code = 5802-4) Negative Negative Leukocytes, UA (test code = 5799-2) Negative Negative Urobilinogen, UA (test code = 31689-1) 0.2 0.2-1.0 Specimen Source (test code = 2795) LYNDSAY (test code = LYNDSAY) Design Assembler ID - [auto]Design Assembler ID - tech Lab Interpretation (test code = 55977-1) [facility]normal [facility] Qpydefbrfap0653-07-75 03:58:52* Test Item Value Reference Range Interpretation Comme nts Color, UA (test code = 5778-6) Light Yellow Clarity, UA (test code = 5767-9) Hazy Specific [place], UA (test code = 5811-5) 1.017 1.001-1.035 pH, UA (test code = 5803-2) 6.0 5.0-8.0 Protein, UA (test code = 11558-9) 10 mg/dL Negative A Glucose, UA (test code = 365) Negative Negative Ketones, UA (test code = 2514-8) Trace Negative A Bilirubin, UA (test code = 95455-4) Negative Negative Blood, UA (test code = 24645-0) Trace Negative A Nitrite, UA (test code = 5802-4) Negative Negative Leukocytes, UA (test code = 5799-2) Negative Negative Urobilinogen, UA (test code = 73985-0) 0.2 0.2-1.0 Specimen Source (test code = 2795) LYNDSAY (test code = LYNDSAY) Design Assembler ID - [auto]Design Assembler ID - tech Lab Interpretation (test code = 91615-2) [facility]normal [facility] Yloqkfyudnh2839-46-67 03:58:52* Test Item Value Reference Range Interpretation Comme nts Color, UA (test code = 5778-6) Light Yellow Clarity, UA (test code = 5767-9) Hazy Specific [place], UA (test code = 5811-5) 1.017 1.001-1.035 pH, UA (test code = 5803-2) 6.0 5.0-8.0 Protein, UA (test code = 47442-8) 10 mg/dL Negative A Glucose, UA (test code = 365) Negative Negative Ketones, UA (test code = 2514-8) Trace Negative A Bilirubin, UA (test code = 81034-6) Negative Negative Blood, UA (test code = 49161-5) Trace Negative A Nitrite, UA (test code = 5802-4) Negative Negative Leukocytes, UA (test code = 5799-2) Negative Negative Urobilinogen, UA (test code = 36894-6) 0.2 0.2-1.0 Specimen Source (test code = 2795) LYNDSAY (test code = LYNDSAY) Design Assembler ID - [auto]Design Assembler ID - tech Lab Interpretation (test code = 71299-2) [facility]normal [facility] [id number] 03:58:52* Test Item Value Reference Range Interpretation [...] 0.2 0.2-1.0 SOURCE(BEAKER) (test code = 2795) Design Assembler ID - [auto]Design Assembler ID - techCBC W/PLT COUNT & AUTO [...] 2801) 0.70 % 0.00-1.00 Rapid drug screen, [id number] 02:20:15* Test Item Value Reference Range Interpretation Comme nts Barbiturate Screen (test code = 23417-4) Negative Negative Benzodiazepine Screen (test code = 24441-6) Negative Negative Cocaine (Metab.) Screen (test code = 3397-7) Positive Negative A Methadone Screen (test code = 23161-0) Negative Negative Opiate Screen (test code = 71960-7) Negative Negative Cannabinoid Screen (test code = 94444-5) Positive Negative A Amph/Methamph Screen (test code = 55181-3) Negative Negative Phencyclidine Screen (test code = 40159-9) Negative Negative pH, UA (test code = 5803-2) 6.0 5.0-8.0 LYNDSAY (test code = LYNDSAY) DRUG CUTOFF CONC.Cocaine 300 ng/mL Cannabinoid 50 ng/mLBenzodiazepine 200 ng/mLBarbiturate 200 ng/mLPhencyclidine 25 ng/mLOpiate 300 ng/mLMethadone 300 ng/mLAmphetamine/ 1000 ng/mL Methamphetamine This assay provides an unconfirmed qualitative test result for the clinical management of patients in emergency situations. Chain of custody not maintained. Some cato-gqu-jhiphoj medications, as well as adulterants, may cause inaccurate results. Clinical correlation should be applied. A more comprehensive drug screen or confirmation of a detected drug may be performed upon request.Design Assembler ID - ADMIN Lab Interpretation (test code = 62386-6) Abnormal [facility], [id number] 02:20:15* Test Item Value Reference Range Interpretation Comme nts Barbiturate Screen (test code = 84844-2) Negative Negative Benzodiazepine Screen (test code = 16911-0) Negative Negative Cocaine (Metab.) Screen (test code = 3397-7) Positive Negative A Methadone Screen (test code = 53781-1) Negative Negative Opiate Screen (test code = 49767-5) Negative Negative Cannabinoid Screen (test code = 54115-1) Positive Negative A Amph/Methamph Screen (test code = 27143-1) Negative Negative Phencyclidine Screen (test code = 62557-2) Negative Negative pH, UA (test code = 5803-2) 6.0 5.0-8.0 LYNDSAY (test code = LYNDSAY) DRUG CUTOFF CONC.Cocaine 300 ng/mL Cannabinoid 50 ng/mLBenzodiazepine 200 ng/mLBarbiturate 200 ng/mLPhencyclidine 25 ng/mLOpiate 300 ng/mLMethadone 300 ng/mLAmphetamine/ 1000 ng/mL Methamphetamine This assay provides an unconfirmed qualitative test result for the clinical management of patients in emergency situations. Chain of custody not maintained. Some pjwt-wvk-mopagvb medications, as well as adulterants, may cause inaccurate results. Clinical correlation should be applied. A more comprehensive drug screen or confirmation of a detected drug may be performed upon request.Design Assembler ID - ADMIN Lab Interpretation (test code = 34163-1) [facility]normal [facility], [id number] 02:20:15* Test Item Value Reference Range Interpretation Comme nts Barbiturate Screen (test code = 19315-2) Negative Negative Benzodiazepine Screen (test code = 06649-1) Negative Negative Cocaine (Metab.) Screen (test code = 3397-7) Positive Negative A Methadone Screen (test code = 60981-5) Negative Negative Opiate Screen (test code = 63343-1) Negative Negative Cannabinoid Screen (test code = 05278-1) Positive Negative A Amph/Methamph Screen (test code = 75822-7) Negative Negative Phencyclidine Screen (test code = 33049-8) Negative Negative pH, UA (test code = 5803-2) 6.0 5.0-8.0 LYNDSAY (test code = LYNDSAY) DRUG CUTOFF CONC.Cocaine 300 ng/mL Cannabinoid 50 ng/mLBenzodiazepine 200 ng/mLBarbiturate 200 ng/mLPhencyclidine 25 ng/mLOpiate 300 ng/mLMethadone 300 ng/mLAmphetamine/ 1000 ng/mL Methamphetamine This assay provides an unconfirmed qualitative test result for the clinical management of patients in emergency situations. Chain of custody not maintained. Some zoig-gkg-uiwleae medications, as well as adulterants, may cause inaccurate results. Clinical correlation should be applied. A more comprehensive drug screen or confirmation of a detected drug may be performed upon request.Design Assembler ID - ADMIN Lab Interpretation (test code = 28164-7) Abnormal [facility], [id number] 02:20:15* Test Item Value Reference Range Interpretation Comme nts Barbiturate Screen (test code = 72134-7) Negative Negative Benzodiazepine Screen (test code = 44298-0) Negative Negative Cocaine (Metab.) Screen (test code = 3397-7) Positive Negative A Methadone Screen (test code = 49766-0) Negative Negative Opiate Screen (test code = 84420-0) Negative Negative Cannabinoid Screen (test code = 91609-5) Positive Negative A Amph/Methamph Screen (test code = 22949-9) Negative Negative Phencyclidine Screen (test code = 32643-2) Negative Negative pH, UA (test code = 5803-2) 6.0 5.0-8.0 LYNDSAY (test code = LYNDSAY) DRUG CUTOFF CONC.Cocaine 300 ng/mL Cannabinoid 50 ng/mLBenzodiazepine 200 ng/mLBarbiturate 200 ng/mLPhencyclidine 25 ng/mLOpiate 300 ng/mLMethadone 300 ng/mLAmphetamine/ 1000 ng/mL Methamphetamine This assay provides an unconfirmed qualitative test result for the clinical management of patients in emergency situations. Chain of custody not maintained. Some xqzb-tbt-rodgtfv medications, as well as adulterants, may cause inaccurate results. Clinical correlation should be applied. A more comprehensive drug screen or confirmation of a detected drug may be performed upon request.Design Assembler ID - ADMIN Lab Interpretation (test code = 40137-9) Abnormal [facility], [id number] 02:20:15* Test Item Value Reference Range Interpretation Comme nts Barbiturate Screen (test code = 90162-5) Negative Negative Benzodiazepine Screen (test code = 03401-0) Negative Negative Cocaine (Metab.) Screen (test code = 3397-7) Positive Negative A Methadone Screen (test code = 38149-8) Negative Negative Opiate Screen (test code = 42930-7) Negative Negative Cannabinoid Screen (test code = 38538-7) Positive Negative A Amph/Methamph Screen (test code = 99905-3) Negative Negative Phencyclidine Screen (test code = 97414-2) Negative Negative pH, UA (test code = 5803-2) 6.0 5.0-8.0 LYNDSAY (test code = LYNDSAY) DRUG CUTOFF CONC.Cocaine 300 ng/mL Cannabinoid 50 ng/mLBenzodiazepine 200 ng/mLBarbiturate 200 ng/mLPhencyclidine 25 ng/mLOpiate 300 ng/mLMethadone 300 ng/mLAmphetamine/ 1000 ng/mL Methamphetamine This assay provides an unconfirmed qualitative test result for the clinical management of patients in emergency situations. Chain of custody not maintained. Some fmos-sed-xgwiouu medications, as well as adulterants, may cause inaccurate results. Clinical correlation should be applied. A more comprehensive drug screen or confirmation of a detected drug may be performed upon request.Design Assembler ID - ADMIN Lab Interpretation (test code = 21401-9) [facility]normal [facility], [id number] 02:20:15* Test Item Value Reference Range Interpretation Comme nts Barbiturate Screen (test code = 39854-3) Negative Negative Benzodiazepine Screen (test code = 81753-1) Negative Negative Cocaine (Metab.) Screen (test code = 3397-7) Positive Negative A Methadone Screen (test code = 02654-1) Negative Negative Opiate Screen (test code = 50289-4) Negative Negative Cannabinoid Screen (test code = 75072-4) Positive Negative A Amph/Methamph Screen (test code = 25429-5) Negative Negative Phencyclidine Screen (test code = 59927-1) Negative Negative pH, UA (test code = 5803-2) 6.0 5.0-8.0 LYNDSAY (test code = LYNDSAY) DRUG CUTOFF CONC.Cocaine 300 ng/mL Cannabinoid 50 ng/mLBenzodiazepine 200 ng/mLBarbiturate 200 ng/mLPhencyclidine 25 ng/mLOpiate 300 ng/mLMethadone 300 ng/mLAmphetamine/ 1000 ng/mL Methamphetamine This assay provides an unconfirmed qualitative test result for the clinical management of patients in emergency situations. Chain of custody not maintained. Some ttbz-tgh-bzbbwjv medications, as well as adulterants, may cause inaccurate results. Clinical correlation should be applied. A more comprehensive drug screen or confirmation of a detected drug may be performed upon request.Design Assembler ID - ADMIN Lab Interpretation (test code = 47504-9) Abnormal [facility] Center[facility] S[facility]EN, [id number] 02:20:15* Test Item Value Reference Range Interpretation [...] situations. Chain of custody not maintained. Some gviu-rvw-gcyerpv medications, as well as adulterants, may cause inaccurate results. Clinical correlation should be applied. A more comprehensive drug screen or confirmation of a detected drug may be performed upon request.Design Assembler ID - ADMINB-TYPE NATRIURETIC FACTOR (BNP)2023-09-04 02:11:53* Test Item Value Reference Range Interpretation Comme nts B-TYPE NATRIURETIC PEPTIDE (BEAKER) (test code = 700) 1761 pg/mL 0-100 H Design Assembler ID - ADMINLACTIC ACID, [id number] 02:10:37* Test Item Value Reference Range Interpretation Comme nts LACTATE BLOOD VENOUS (2) (BEAKER) (test code = 2872) 1.04 mmol/L 0.50-2.00 Specimen slightl y hemolyzed Design Assembler ID - [id number] 02:04:37* Test Item Value Reference Range Interpretation Comme nts PHOSPHORUS (BEAKER) (test code = 604) 4.2 mg/dL 2.3-4.7 Specimen sligh tly hemolyzed Design Assembler ID - ADMINCOMPREHENSIVE METABOLIC [id number] 02:04:37* Test Item Value Reference Range Interpretation [...] GFR is not applicable for dialysis patients Design Assembler ID - [id number] 02:04:36* Test Item Value Reference Range Interpretation Comme nts MAGNESIUM (BEAKER) (test code = 627) 2.1 mg/dL 1.6-2.6 Specimen sligh tly hemolyzed Design Assembler ID - [id number] 01:45:13* Test Item Value Reference Range Interpretation Comme nts D-DIMER QUANTITATIVE (BEAKER ) (test code = 671) 0.62 MG/L [...] code = 760) 28.5 seconds 22.5-36.0 PROTHROMBIN TIME/[id number] 01:42:15* Test Item Value Reference Range Interpretation Comme nts PROTIME (BEAKER) (test code = 759) 15.8 seconds 11.9-14.2 H INR (BEAKER) (test code = 370) 1.25 <=5.90 RECOMMENDED COUMADIN/WARFARIN INR THERAPY RANGESSTANDARD DOSE: 2.0 - 3.0 Includes: PROPHYLAXIS for venous thrombosis, systemic embolization; TREATMENT for venous thrombosis and/or pulmonary embolus.HIGH RISK: Target INR is 2.5-3.5 for patients with mechanical heart valves.Lactic Acid Whole [id number] 20:51:22* Test Item Value Reference Range Interpretation Comme nts LACTIC ACID (test code = 8240770977) 1.56 mmol/L 0.50-2.20 Lab Interpretation (test cod e = 21647-9) [facility] [id number] 07:00:09* Test Item Value Reference Range Interpretation Comme nts CULTURE (BEAKER) (test code = 1095) No growth in 5 days BLOOD [id number] 07:00:09* Test Item Value Reference Range Interpretation Comme nts CULTURE (BEAKER) (test code = 1095) No growth in 5 days T-SPOT(R).[id number] 18:35:00* Test Item Value Reference Range Interpretation Comme nts T-SPOT.TB (test code = 3202673) Negative SeeBelow Normal Value: Ne gativeA negative [...] 20150905) 0 NEGATIVE CONTROL (test code = 0528695) Passed POSITIVE CONTROL (test code = 20150907) Passed LYNDSAY (test code = LYNDSAY) [id number] [facility]).[id number] 18:35:00* Test Item Value Reference Range Interpretation [...] 20150905) 0 NEGATIVE CONTROL (test code = 5668782) Passed POSITIVE CONTROL (test code = 6869451) Passed LYNDSAY (test code = LYNDSAY) [id number] [facility]).[id number] 18:35:00* Test Item Value Reference Range Interpretation Comme [facility] T-SPOT.TB (test code = 6811708) Negative SeeBelow Normal Value: Ne gativeA negative [...] CORRECTED FOR NEG CONTROL (test code = 0737358) 1 PANEL B SPOT COUNT CORRECTED FOR NEG CONTROL (test code = 4563975) 0 NEGATIVE CONTROL (test code = 0870559) Passed POSITIVE CONTROL (test code = 9405556) Passed LYNDSAY (test code = LYNDSAY) [id number] [facility]).[id number] 18:35:00* Test Item Value Reference Range Interpretation Comme [facility] T-SPOT.TB (test code = 6435974) Negative SeeBelow Normal Value: Ne gativeA negative [...] CORRECTED FOR NEG CONTROL (test code = 2176358) 1 PANEL B SPOT COUNT CORRECTED FOR NEG CONTROL (test code = 1717287) 0 NEGATIVE CONTROL (test code = 9980276) Passed POSITIVE CONTROL (test code = 8466942) Passed LYNDSAY (test code = LYNDSAY) [id number] [facility]).[id number] 18:35:00* Test Item Value Reference Range Interpretation [...] CORRECTED FOR NEG CONTROL (test code = 7712211) 0 NEGATIVE CONTROL (test code = 4905486) Passed POSITIVE CONTROL (test code = 1756874) Passed LYNDSAY (test code = LYNDSAY) [id number] [facility]).[id number] 18:35:00* Test Item Value Reference Range Interpretation Comme nts T-SPOT.TB (test code = 2226771) Negative SeeBelow Normal Value: Ne gativeA negative [...] CORRECTED FOR NEG CONTROL (test code = 7976075) 0 NEGATIVE CONTROL (test code = 9552860) Passed POSITIVE CONTROL (test code = 7092643) Passed LYNDSAY (test code = LYNDSAY) [id number] [facility]).[id number] 18:35:00* Test Item Value Reference Range Interpretation [...] 20150905) 0 NEGATIVE CONTROL (test code = 2314244) Passed POSITIVE CONTROL (test code = 0345066) Passed LYNDSAY (test code = LYNDSAY) [id number] [facility]).[id number] 18:35:00* Test Item Value Reference Range Interpretation Comme nts T-SPOT.TB (test code = 1817846) Negative SeeBelow Normal Value: Ne gativeA negative [...] CORRECTED FOR NEG CONTROL (test code = 4666752) 1 PANEL B SPOT COUNT CORRECTED FOR NEG CONTROL (test code = 4904518) 0 NEGATIVE CONTROL (test code = 8146447) Passed POSITIVE CONTROL (test code = 20150907) Passed LYNDSAY (test code = LYNDSAY) [id number] [facility]).[id number] 18:35:00* Test Item Value Reference Range Interpretation Comme nts T-SPOT.TB (test code = 8353212) Negative SeeBelow Normal Value: Ne gativeA negative [...] CORRECTED FOR NEG CONTROL (test code = 1954427) 1 PANEL B SPOT COUNT CORRECTED FOR NEG CONTROL (test code = 8503229) 0 NEGATIVE CONTROL (test code = 3440389) Passed POSITIVE CONTROL (test code = 4400532) Passed LYNDSAY (test code = LYNDSAY) [id number] [facility]).[id number] 18:35:00* Test Item Value Reference Range Interpretation Comme nts T-SPOT.TB (test code = 0441763) Negative SeeBelow Normal Value: Ne gativeA negative [...] CORRECTED FOR NEG CONTROL (test code = 9940723) 1 PANEL B SPOT COUNT CORRECTED FOR NEG CONTROL (test code = 8074403) 0 NEGATIVE CONTROL (test code = 6779771) Passed POSITIVE CONTROL (test code = 7287282) Passed LYNDSAY (test code = LYNDSAY) [id number] [facility]).[id number] 18:35:00* Test Item Value Reference Range Interpretation Comme nts T-SPOT.TB (test code = 8914420) Negative SeeBelow Normal Value: Ne gativeA negative [...] CORRECTED FOR NEG CONTROL (test code = 2231297) 1 PANEL B SPOT COUNT CORRECTED FOR NEG CONTROL (test code = 8091603) 0 NEGATIVE CONTROL (test code = 5262411) Passed POSITIVE CONTROL (test code = 2818921) Passed LYNDSAY (test code = LYNDSAY) [id number] [facility]).[id number] 18:35:00* Test Item Value Reference Range Interpretation [...] CORRECTED FOR NEG CONTROL (test code = 1677881) 0 NEGATIVE CONTROL (test code = 5373965) Passed POSITIVE CONTROL (test code = 6809237) Passed LYNDSAY (test code = LYNDSAY) [id number] [facility]).[id number] 18:35:00* Test Item Value Reference Range Interpretation Comme nts T-SPOT.TB (test code = 1533931) Negative SeeBelow Normal Value: Ne gativeA negative [...] 20150905) 0 NEGATIVE CONTROL (test code = 0909256) Passed POSITIVE CONTROL (test code = 20150907) Passed LYNDSAY (test code = LYNDSAY) [id number] [facility]).[id number] 18:35:00* Test Item Value Reference Range Interpretation [...] 20150905) 0 NEGATIVE CONTROL (test code = 9087614) Passed POSITIVE CONTROL (test code = 0966399) Passed LYNDSAY (test code = LYNDSAY) [id number] [facility]).[id number] 18:35:00* Test Item Value Reference Range Interpretation Comme nts T-SPOT.TB (test code = 94160-0) Negative SeeBelow Normal Value: Ne gativeA negative [...] CORRECTED FOR NEG CONTROL (test code = 82547-4) 0 NEGATIVE CONTROL (test code = 46444-2) Passed POSITIVE CONTROL (test code = 41376-0) Passed LYNDSAY (test code = LYNDSAY) [id number] [facility]).[id number] 18:35:00* Test Item Value Reference Range Interpretation Comme nts T-SPOT.TB (test code = 82715-8) Negative SeeBelow Normal Value: Ne gativeA negative [...] CORRECTED FOR NEG CONTROL (test code = 58034-6) 0 NEGATIVE CONTROL (test code = 40589-5) Passed POSITIVE CONTROL (test code = 28271-5) Passed LYNDSAY (test code = LYNDSAY) [id number] [facility]).[id number] 18:35:00* Test Item Value Reference Range Interpretation Comme nts T-SPOT.TB (test code = 67037-9) Negative SeeBelow Normal Value: Ne gativeA negative [...] CORRECTED FOR NEG CONTROL (test code = 41365-1) 0 NEGATIVE CONTROL (test code = 50021-0) Passed POSITIVE CONTROL (test code = 00642-9) Passed LYNDSAY (test code = LYNDSAY) [id number] [facility]).[id number] 18:35:00* Test Item Value Reference Range Interpretation Comme nts T-SPOT.TB (test code = 85742-5) Negative SeeBelow Normal Value: Ne gativeA negative [...] CORRECTED FOR NEG CONTROL (test code = 39538-3) 0 NEGATIVE CONTROL (test code = 90141-6) Passed POSITIVE CONTROL (test code = 96691-1) Passed LYNDSAY (test code = LYNDSAY) [id number] [facility][id number] 18:35:00* Test Item Value Reference Range Interpretation Comme nts T-SPOT.TB (test code = 63022-7) Negative SeeBelow Normal Value: Ne gativeA negative [...] CORRECTED FOR NEG CONTROL (test code = 87955-8) 0 NEGATIVE CONTROL (test code = 70403-3) Passed POSITIVE CONTROL (test code = 99341-7) Passed LYNDSAY (test code = LYNDSAY) [id number] [facility][id number] 18:35:00* Test Item Value Reference Range Interpretation Comme nts T-SPOT.TB (test code = 01685-3) Negative SeeBelow Normal Value: Ne gativeA negative [...] CORRECTED FOR NEG CONTROL (test code = 11667-5) 0 NEGATIVE CONTROL (test code = 01773-9) Passed POSITIVE CONTROL (test code = 57648-8) Passed LYNDSAY (test code = LYNDSAY) [id number] [facility][id number] 18:35:00* Test Item Value Reference Range Interpretation Comme nts T-SPOT.TB (test code = 12772-2) Negative SeeBelow Normal Value: Ne gativeA negative [...] CORRECTED FOR NEG CONTROL (test code = 98915-0) 0 NEGATIVE CONTROL (test code = 72576-3) Passed POSITIVE CONTROL (test code = 72539-0) Passed LYNDSAY (test code = LYNDSAY) [id number] [facility]NF0356-07-21 18:35:00* Test Item Value Reference Range Interpretation Comme nts T-SPOT.TB (test code = 43774-4) Negative SeeBelow Normal Value: Ne gativeA negative [...] CORRECTED FOR NEG CONTROL (test code = 51496-7) 0 NEGATIVE CONTROL (test code = 62140-0) Passed POSITIVE CONTROL (test code = 63428-3) Passed LYNDSAY (test code = LYNDSAY) [id number] [facility][id number] 18:35:00* Test Item Value Reference Range Interpretation Comme nts T-SPOT.TB (test code = 97387-1) Negative SeeBelow Normal Value: Ne gativeA negative [...] CORRECTED FOR NEG CONTROL (test code = 74220-2) 0 NEGATIVE CONTROL (test code = 46846-9) Passed POSITIVE CONTROL (test code = 36233-5) Passed LYNDSAY (test code = LYNDSAY) [id number] [facility][id number] 18:35:00* Test Item Value Reference Range Interpretation Comme nts T-SPOT.TB (test code = 92269-4) Negative SeeBelow Normal Value: Ne gativeA negative [...] CORRECTED FOR NEG CONTROL (test code = 96577-1) 0 NEGATIVE CONTROL (test code = 37672-5) Passed POSITIVE CONTROL (test code = 69913-2) Passed LYNDSAY (test code = LYNDSAY) [id number] [facility]HB8658-73-84 18:35:00* Test Item Value Reference Range Interpretation Comme nts T-SPOT.TB (test code = 94320-8) Negative SeeBelow Normal Value: Ne gativeA negative [...] CORRECTED FOR NEG CONTROL (test code = 13316-3) 0 NEGATIVE CONTROL (test code = 67906-5) Passed POSITIVE CONTROL (test code = 35877-4) Passed LYNDSAY (test code = LYNDSAY) [id number] [facility]VP6950-17-54 18:35:00* Test Item Value Reference Range Interpretation Comme nts T-SPOT.TB (test code = 9105380) Negative SeeBelow Normal Value: Ne gativeA negative [...] CORRECTED FOR NEG CONTROL (test code = 6319277) 1 PANEL B SPOT COUNT CORRECTED FOR NEG CONTROL (test code = 9962179) 0 NEGATIVE CONTROL (test code = 7704853) Passed POSITIVE CONTROL (test code = 0665170) Passed LYNDSAY (test code = LYNDSAY) [id number] [facility][id number] 18:35:00* Test Item Value Reference Range Interpretation Comme nts T-SPOT.TB (test code = 2616076) Negative SeeBelow Normal Value: Ne gativeA negative [...] [id number]) 0 NEGATIVE CONTROL (test code = 1644355) Passed POSITIVE CONTROL (test code = 20150907) Passed LYNDSAY (test code = LYNDSAY) [id number] [facility]QP0671-14-25 18:35:00* Test Item Value Reference Range Interpretation [...] CORRECTED FOR NEG CONTROL (test code = 4836759) 0 NEGATIVE CONTROL (test code = 0888990) Passed POSITIVE CONTROL (test code = 9265373) Passed LYNDSAY (test code = LYNDSAY) [id number] [facility][id number] 18:35:00* Test Item Value Reference Range Interpretation Comme nts T-SPOT.TB (test code = 17227-8) Negative SeeBelow Normal Value: Ne gativeA negative [...] CORRECTED FOR NEG CONTROL (test code = 25730-5) 0 NEGATIVE CONTROL (test code = 18031-0) Passed POSITIVE CONTROL (test code = 99190-1) Passed LYNDSAY (test code = LYNDSAY) [id number] [facility] CenterTransesophageal zzaq5683-70-79 13:41:18 Transesophageal Echocardiography Report (CHETAN) Demographics Patient Name YUE LAWS Date of Study 06/16/2023 ESTELLE Gender Female Visit Number [id number] Race Room Number 1055 Number Date of 1970 Referring Physician Age 53 year(s) 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 Pulmonic Valve Not visualized.[facility] irgamw5170-63-21 09:55:41* Test Item Value Reference Range Interpretation Comme nts Result (test code = 6463-4) No MRSA isolated [facility] jlhjon5468-05-63 09:55:41* Test Item Value Reference Range Interpretation Comme nts Result (test code = 6463-4) No MRSA isolated [facility] qxqwdz9155-16-60 09:55:41* Test Item Value Reference Range Interpretation Comme nts Result (test code = 6463-4) No MRSA isolated [facility] yzyxra3216-73-79 09:55:41* Test Item Value Reference Range Interpretation Comme nts Result (test code = 6463-4) No MRSA isolated [facility] mmbrab0974-58-99 09:55:41* Test Item Value Reference Range Interpretation Comme nts Result (test code = 6463-4) No MRSA isolated [facility] zacefg1762-08-00 09:55:41* Test Item Value Reference Range Interpretation Comme nts Result (test code = 6463-4) No MRSA isolated [facility] fyvcpv0386-52-39 09:55:41* Test Item Value Reference Range Interpretation Comme nts Result (test code = 6463-4) No MRSA isolated [facility] lqhzou9135-12-68 09:55:41* Test Item Value Reference Range Interpretation Comme nts Result (test code = 6463-4) No MRSA isolated [facility] qirnmu1609-22-15 09:55:41* Test Item Value Reference Range Interpretation Comme nts Result (test code = 6463-4) No MRSA isolated [facility] bjlovm4929-83-25 09:55:41* Test Item Value Reference Range Interpretation Comme nts Result (test code = 6463-4) No MRSA isolated [facility] vfdybh3978-32-11 09:55:41* Test Item Value Reference Range Interpretation Comme nts Result (test code = 6463-4) No MRSA isolated [facility] aetfhs7766-28-22 09:55:41* Test Item Value Reference Range Interpretation Comme nts Result (test code = 6463-4) No MRSA isolated [facility] pqonov4503-76-45 09:55:41* Test Item Value Reference Range Interpretation Comme nts Result (test code = 6463-4) No MRSA isolated [facility] rhyhmn3667-71-29 09:55:41* Test Item Value Reference Range Interpretation Comme nts Result (test code = 6463-4) No MRSA isolated [facility] zrbjhx5298-63-11 09:55:41* Test Item Value Reference Range Interpretation Comme nts Result (test code = 6463-4) No MRSA isolated [facility] hkllws4872-13-75 09:55:41* Test Item Value Reference Range Interpretation Comme nts Result (test code = 6463-4) No MRSA isolated [facility] sjlomc5887-51-92 09:55:41* Test Item Value Reference Range Interpretation Comme nts Result (test code = 6463-4) No MRSA isolated [facility] okyprd6086-75-96 09:55:41* Test Item Value Reference Range Interpretation Comme nts Result (test code = 6463-4) No MRSA isolated [facility] lezmjq2173-72-95 09:55:41* Test Item Value Reference Range Interpretation Comme nts Result (test code = 6463-4) No MRSA isolated [facility] vwggwd3767-48-95 09:55:41* Test Item Value Reference Range Interpretation Comme nts Result (test code = 6463-4) No MRSA isolated [facility] tsrsgn5079-47-67 09:55:41* Test Item Value Reference Range Interpretation Comme nts Result (test code = 6463-4) No MRSA isolated [facility] npegbq6675-27-36 09:55:41* Test Item Value Reference Range Interpretation Comme nts Result (test code = 6463-4) No MRSA isolated [facility] yrnadq3539-08-69 09:55:41* Test Item Value Reference Range Interpretation Comme nts Result (test code = 6463-4) No MRSA isolated [facility] axivyk2089-04-29 09:55:41* Test Item Value Reference Range Interpretation Comme nts Result (test code = 6463-4) No MRSA isolated [facility] suoocn7463-62-03 09:55:41* Test Item Value Reference Range Interpretation Comme nts Result (test code = 6463-4) No MRSA isolated [facility] nqnsml1597-33-23 09:55:41* Test Item Value Reference Range Interpretation Comme nts Result (test code = 6463-4) No MRSA isolated [facility] penvrw4041-76-97 09:55:41* Test Item Value Reference Range Interpretation Comme nts Result (test code = 6463-4) No MRSA isolated [facility] ojoqmx3580-77-43 09:55:41* Test Item Value Reference Range Interpretation Comme nts Result (test code = 6463-4) No MRSA isolated [facility]MR[facility] bpzrgr1602-53-33 09:55:41* Test Item Value Reference Range Interpretation Comme nts Result (test code = 6463-4) No MRSA isolated [facility] CenterMR[facility] GFNSPF0474-32-26 09:55:41* Test Item Value Reference Range Interpretation Comme nts CULTURE (BEAKER) (test code = 1095) No MRSA isolated CRYPTOCOCCAL [id number] 15:50:36* Test Item Value Reference Range Interpretation Comme nts CRYPTOCOCCAL ANTIGEN, SERUM (BEAKER) (test code = 1828) Negative Negative, Interference SPUTUM CULTURE + GRAM [id number] 10:30:11* Test Item Value Reference Range Interpretation [...] GRAM STAIN RESULT (BEAKER) (test code = 221434) 10-15 epithelial cells GRAM STAIN RESULT (BEAKER) (test code = 678423) 2+ gram positive cocci in chains and pairs GRAM STAIN RESULT (BEAKER) (test code = 491735) 1+ gram negative rods GRAM STAIN RESULT (BEAKER) (test code = 636302) 1+ yeast 2+ Normal respiratory rebel presentVANCOMYCIN LEVEL, [id number] 06:41:26* Test Item Value Reference Range Interpretation Comme nts VANCOMYCIN TROUGH (BEAKER) ( test code = 522) 17.0 ug/mL 10.0-20.0 Design Assembler ID - ADMINECHO W CONTRAST & [id number] 13:44:03Transthoracic Echocardiography Report (TTE) Demographics Patient Name YUE LAWS Date of Study 06/14/2023 ESTELLE Gender Female Visit Number [id number] Race Room Number 1055 Number Date of 1970 Referring Aydee Go MD Physician Age 53 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 There is aortic valve sclerosis without [...] Proximal ascending aorta is normal . Pericardium Nopericardial effusion is visualized. IVC/SVC/PA/PV/Pleural The IVC is <2.1cm and <50% collapsible suggestive of RAP of 8 mm Hg.Chambers/Structures Left Atrium LA Volume: 109.23 ml LA Vol. Index:57 ml/m^2 Left Ventricle LVIDd: 6.07 cm LVEDV:141.86 [...] Peak Velocity: 0.85 m/s Peak Gradient: 2.89 mmHgPorterville Developmental CenterHEMOGLOBIN A1C 2023-06-14 09:26:42* Test Item Value Reference Range Interpretation Comme [facility] HEMOGLOBIN A1C ELECTROPHORESIS ([employer]) (test code = 3811) 6.7 % See_Comment [...] 5.7- 6.4% indicates increased risk for diabetes (prediabetes)."Design Assembler ID - ADMOperator ID - ADMECG 12 [id number] 09:06:12Ventricular Rate 97 BPMAtrial Rate 97 BPMP-R Interval 146 msQRS Duration 96 msQ-T Interval 378 msQTC Calculation(Bazett) 480 msP [place] 68 degreesR [place] 107 degreesT [place] 18 degrees Suspect arm leadreversal, interpretation assumes no reversalNormal sinus rhythmRightward axisNonspecific T wave abnormalityAbnormal ECGWhen compared with ECG of 30-MAR-2023 13:06,QRS axis Shifted rightConfirmed by Luis Lopez ([id number]) on 06/14/2023 9:06:07 [facility] [id number] 09:06:12Ventricular Rate 97 BPMAtrial Rate 97 BPMP-R Interval 146 msQRS Duration 96 msQ-T Interval 378 msQTC Calculation(Bazett) 480 msP [place] 68 degreesR [place] 107 degreesT [place] 18 degrees Suspect arm leadreversal, interpretation assumes no reversalNormal sinus rhythmRightward axisNonspecific T wave abno rmalityAbnormal ECGWhen compared with ECG of 30-MAR-2023 13:06,QRS axis Shifted rightConfirmed by Luis Lopez ([id number]) on 06/14/2023 9:06:07 [facility] CenterBASIC METABOLIC [id number] 04:48:18* Test Item Value Reference Range Interpretation [...] GFR is not applicable for dialysis patients Design Assembler ID - ADMINCBC (HEMOGRAM ONLY)2023-06-14 04:22:50* Test [...] 413) 0 /100 WBC 0-0 Strep pneumoniae kdjimpx0368-48-14 23:34:41* Test Item Value Reference Range Interpretation Comme nts Strep pneumoniae Antigen (test code = 16454-4) Presumptive negative for pneumococcal pneumonia - see [...] the test. Lab Interpretation (test code = 08438-0) [facility] rkhiiao0587-41-77 23:34:41* Test Item Value Reference Range Interpretation Comme nts Strep pneumoniae Antigen (test code = 24422-9) Presumptive negative for pneumococcal pneumonia - see [...] the test. Lab Interpretation (test code = 78199-8) [facility] uvticxx6536-90-07 23:34:41* Test Item Value Reference Range Interpretation Comme nts Strep pneumoniae Antigen (test code = 65287-1) Presumptive negative for pneumococcal pneumonia - see [...] the test. Lab Interpretation (test code = 56964-1) [facility] kwlagpb4090-51-43 23:34:41* Test Item Value Reference Range Interpretation Comme nts Strep pneumoniae Antigen (test code = 38317-6) Presumptive negative for pneumococcal pneumonia - see [...] the test. Lab Interpretation (test code = 01520-7) [facility] aufndbi0900-66-33 23:34:41* Test Item Value Reference Range Interpretation Comme nts Strep pneumoniae Antigen (test code = 34660-3) Presumptive negative for pneumococcal pneumonia - see [...] the test. Lab Interpretation (test code = 23777-0) [facility] hfoukpr4460-30-52 23:34:41* Test Item Value Reference Range Interpretation Comme nts Strep pneumoniae Antigen (test code = 70873-4) Presumptive negative for pneumococcal pneumonia - see [...] the test. Lab Interpretation (test code = 62752-8) Normal [facility] vncqjts8517-01-03 23:34:41* Test Item Value Reference Range Interpretation Comme nts Strep pneumoniae Antigen (test code = 93580-4) Presumptive negative for pneumococcal pneumonia - see [...] the test. Lab Interpretation (test code = 80251-1) [facility] muwgueu3396-40-33 23:34:41* Test Item Value Reference Range Interpretation Comme nts Strep pneumoniae Antigen (test code = 64114-1) Presumptive negative for pneumococcal pneumonia - see [...] the test. Lab Interpretation (test code = 16798-8) [facility] shszehw8555-93-86 23:34:41* Test Item Value Reference Range Interpretation Comme nts Strep pneumoniae Antigen (test code = 20818-3) Presumptive negative for pneumococcal pneumonia - see [...] the test. Lab Interpretation (test code = 62370-3) [facility] demyqsm7932-79-27 23:34:41* Test Item Value Reference Range Interpretation Comme nts Strep pneumoniae Antigen (test code = 07862-4) Presumptive negative for pneumococcal pneumonia - see [...] the test. Lab Interpretation (test code = 42141-9) Normal [facility] dgroved1012-67-40 23:34:41* Test Item Value Reference Range Interpretation Comme nts Strep pneumoniae Antigen (test code = 33718-0) Presumptive negative for pneumococcal pneumonia - see [...] the test. Lab Interpretation (test code = 23429-9) [facility] uayibhr5759-32-76 23:34:41* Test Item Value Reference Range Interpretation Comme nts Strep pneumoniae Antigen (test code = 98440-8) Presumptive negative for pneumococcal pneumonia - see [...] the test. Lab Interpretation (test code = 35844-7) [facility] ltdwcuc8830-00-00 23:34:41* Test Item Value Reference Range Interpretation Comme nts Strep pneumoniae Antigen (test code = 97529-4) Presumptive negative for pneumococcal pneumonia - see [...] the test. Lab Interpretation (test code = 00344-3) Normal [facility] ctblitc0663-96-93 23:34:41* Test Item Value Reference Range Interpretation Comme nts Strep pneumoniae Antigen (test code = 12079-0) Presumptive negative for pneumococcal pneumonia - see [...] the test. Lab Interpretation (test code = 07029-6) Normal [facility] epkizpn9362-26-69 23:34:41* Test Item Value Reference Range Interpretation Comme nts Strep pneumoniae Antigen (test code = 38943-0) Presumptive negative for pneumococcal pneumonia - see [...] the test. Lab Interpretation (test code = 42507-3) [facility] jsxdhuo7273-07-36 23:34:41* Test Item Value Reference Range Interpretation Comme nts Strep pneumoniae Antigen (test code = 79065-2) Presumptive negative for pneumococcal pneumonia - see [...] the test. Lab Interpretation (test code = 23307-3) Normal [facility] ejmngmg7150-72-27 23:34:41* Test Item Value Reference Range Interpretation Comme nts Strep pneumoniae Antigen (test code = 45459-9) Presumptive negative for pneumococcal pneumonia - see [...] the test. Lab Interpretation (test code = 16256-7) [facility] vnncrwl7227-45-25 23:34:41* Test Item Value Reference Range Interpretation Comme nts Strep pneumoniae Antigen (test code = 34592-8) Presumptive negative for pneumococcal pneumonia - see [...] the test. Lab Interpretation (test code = 42315-1) Normal [facility] rmzrmow5392-31-17 23:34:41* Test Item Value Reference Range Interpretation Comme nts Strep pneumoniae Antigen (test code = 84549-7) Presumptive negative for pneumococcal pneumonia - see [...] the test. Lab Interpretation (test code = 49965-0) [facility] knxjcfj2647-52-90 23:34:41* Test Item Value Reference Range Interpretation Comme nts Strep pneumoniae Antigen (test code = 09739-8) Presumptive negative for pneumococcal pneumonia - see [...] the test. Lab Interpretation (test code = 82058-3) Normal [facility] kxquxio5624-07-70 23:34:41* Test Item Value Reference Range Interpretation Comme nts Strep pneumoniae Antigen (test code = 24798-3) Presumptive negative for pneumococcal pneumonia - see [...] the test. Lab Interpretation (test code = 61608-4) [facility] fvrtrkz9982-02-12 23:34:41* Test Item Value Reference Range Interpretation Comme nts Strep pneumoniae Antigen (test code = 01440-3) Presumptive negative for pneumococcal pneumonia - see [...] the test. Lab Interpretation (test code = 89907-5) [facility] vdrkzdm2659-71-49 23:34:41* Test Item Value Reference Range Interpretation Comme nts Strep pneumoniae Antigen (test code = 56701-8) Presumptive negative for pneumococcal pneumonia - see [...] the test. Lab Interpretation (test code = 35588-4) Normal [facility] nonhlhu8724-42-27 23:34:41* Test Item Value Reference Range Interpretation Comme nts Strep pneumoniae Antigen (test code = 48069-1) Presumptive negative for pneumococcal pneumonia - see [...] the test. Lab Interpretation (test code = 14643-8) Normal [facility] nyrsicd8990-85-04 23:34:41* Test Item Value Reference Range Interpretation Comme nts Strep pneumoniae Antigen (test code = 71627-0) Presumptive negative for pneumococcal pneumonia - see [...] the test. Lab Interpretation (test code = 55374-2) Normal [facility] lucazry5305-92-14 23:34:41* Test Item Value Reference Range Interpretation Comme nts Strep pneumoniae Antigen (test code = 93982-4) Presumptive negative for pneumococcal pneumonia - see [...] the test. Lab Interpretation (test code = 06836-9) [facility] wpcoesa7106-87-31 23:34:41* Test Item Value Reference Range Interpretation Comme nts Strep pneumoniae Antigen (test code = 02139-3) Presumptive negative for pneumococcal pneumonia - see [...] the test. Lab Interpretation (test code = 36481-2) [facility] nmtjqts7626-44-74 23:34:41* Test Item Value Reference Range Interpretation Comme nts Strep pneumoniae Antigen (test code = 90968-0) Presumptive negative for pneumococcal pneumonia - see [...] the test. Lab Interpretation (test code = 28143-7) Normal [facility] mingkgs1135-84-43 23:34:41* Test Item Value Reference Range Interpretation Comme nts Strep pneumoniae Antigen (test code = 53974-2) Presumptive negative for pneumococcal pneumonia - see [...] the test. Lab Interpretation (test code = 70741-9) Normal [facility] CenterTREP PNEUMONIAE BCTEMPA8592-34-97 23:34:41* Test Item Value Reference Range Interpretation [...] detection limit of the test. Legionella antigen, yqnpl1707-05-83 23:29:07* Test Item Value Reference Range Interpretation Comme nts Legionella Urine Antigen (test code = 50188-2) Negative - see comment Negative Negative for L. pneumophila serogroup 1 antigen, suggesting no recent or current infection with this serogroup. Legionellosis cannot be ruled out since other serogroups and species may cause disease. Lab Interpretation (test code = 27744-3) [facility] CenterLegion[facility] antigen, czxlo3430-55-24 23:29:07* Test Item Value Reference Range Interpretation Comme nts Legionella Urine Antigen (test code = 18150-8) Negative - see comment Negative Negative for L. pneumophila serogroup 1 antigen, suggesting no recent or current infection with this serogroup. Legionellosis cannot be ruled out since other serogroups and species may cause disease. Lab Interpretation (test code = 12648-7) Normal [facility] CenterLegion[facility] antigen, ouymm3980-29-58 23:29:07* Test Item Value Reference Range Interpretation Comme nts Legionella Urine Antigen (test code = 71736-8) Negative - see comment Negative Negative for L. pneumophila serogroup 1 antigen, suggesting no recent or current infection with this serogroup. Legionellosis cannot be ruled out since other serogroups and species may cause disease. Lab Interpretation (test code = 23673-3) Normal [facility] CenterLegionella antigen, uczwm4745-91-89 23:29:07* Test Item Value Reference Range Interpretation Comme nts Legionella Urine Antigen (test code = 92340-2) Negative - see comment Negative Negative for L. pneumophila serogroup 1 antigen, suggesting no recent or current infection with this serogroup. Legionellosis cannot be ruled out since other serogroups and species may cause disease. Lab Interpretation (test code = 05937-0) Normal [facility] CenterLegionella antigen, xswxw7510-23-95 23:29:07* Test Item Value Reference Range Interpretation Comme nts Legionella Urine Antigen (test code = 99264-3) Negative - see comment Negative Negative for L. pneumophila serogroup 1 antigen, suggesting no recent or current infection with this serogroup. Legionellosis cannot be ruled out since other serogroups and species may cause disease. Lab Interpretation (test code = 26333-8) Normal [facility] CenterLegionella antigen, qpkeh1207-13-63 23:29:07* Test Item Value Reference Range Interpretation Comme nts Legionella Urine Antigen (test code = 12089-7) Negative - see comment Negative Negative for L. pneumophila serogroup 1 antigen, suggesting no recent or current infection with this serogroup. Legionellosis cannot be ruled out since other serogroups and species may cause disease. Lab Interpretation (test code = 36810-2) Normal [facility] CenterLegion[facility] antigen, wzbxx3864-60-68 23:29:07* Test Item Value Reference Range Interpretation Comme nts Legionella Urine Antigen (test code = 31046-1) Negative - see comment Negative Negative for L. pneumophila serogroup 1 antigen, suggesting no recent or current infection with this serogroup. Legionellosis cannot be ruled out since other serogroups and species may cause disease. Lab Interpretation (test code = 74937-6) [facility] Center[facility]ion[facility] antigen, [id number] 23:29:07* Test Item Value Reference Range Interpretation Comme nts Legionella Urine Antigen (test code = 08341-4) Negative - see comment Negative Negative for L. pneumophila serogroup 1 antigen, suggesting no recent or current infection with this serogroup. Legionellosis cannot be ruled out since other serogroups and species may cause disease. Lab Interpretation (test code = 39845-3) Normal [facility] Center[facility]ion[facility] antigen, [id number] 23:29:07* Test Item Value Reference Range Interpretation Comme nts Legionella Urine Antigen (test code = 61243-5) Negative - see comment Negative Negative for L. pneumophila serogroup 1 antigen, suggesting no recent or current infection with this serogroup. Legionellosis cannot be ruled out since other serogroups and species may cause disease. Lab Interpretation (test code = 49078-5) Normal [facility] Center[facility]ion[facility] antigen, [id number] 23:29:07* Test Item Value Reference Range Interpretation Comme nts Legionella Urine Antigen (test code = 99075-9) Negative - see comment Negative Negative for L. pneumophila serogroup 1 antigen, suggesting no recent or current infection with this serogroup. Legionellosis cannot be ruled out since other serogroups and species may cause disease. Lab Interpretation (test code = 68739-7) Normal [facility] antigen, [id number] 23:29:07* Test Item Value Reference Range Interpretation Comme nts Legionella Urine Antigen (test code = 39387-6) Negative - see comment Negative Negative for L. pneumophila serogroup 1 antigen, suggesting no recent or current infection with this serogroup. Legionellosis cannot be ruled out since other serogroups and species may cause disease. Lab Interpretation (test code = 85980-2) [facility] Center[facility] antigen, [id number] 23:29:07* Test Item Value Reference Range Interpretation Comme nts Legionella Urine Antigen (test code = 47089-5) Negative - see comment Negative Negative for L. pneumophila serogroup 1 antigen, suggesting no recent or current infection with this serogroup. Legionellosis cannot be ruled out since other serogroups and species may cause disease. Lab Interpretation (test code = 97423-5) [facility], [id number] 23:29:07* Test Item Value Reference Range Interpretation Comme nts Legionella Urine Antigen (test code = 56248-6) Negative - see comment Negative Negative for L. pneumophila serogroup 1 antigen, suggesting no recent or current infection with this serogroup. Legionellosis cannot be ruled out since other serogroups and species may cause disease. Lab Interpretation (test code = 49056-6) Normal [facility] antigen, [id number] 23:29:07* Test Item Value Reference Range Interpretation Comme nts Legionella Urine Antigen (test code = 12690-0) Negative - see comment Negative Negative for L. pneumophila serogroup 1 antigen, suggesting no recent or current infection with this serogroup. Legionellosis cannot be ruled out since other serogroups and species may cause disease. Lab Interpretation (test code = 70384-7) Normal [facility] Center[facility] antigen, [id number] 23:29:07* Test Item Value Reference Range Interpretation Comme nts Legionella Urine Antigen (test code = 26806-3) Negative - see comment Negative Negative for L. pneumophila serogroup 1 antigen, suggesting no recent or current infection with this serogroup. Legionellosis cannot be ruled out since other serogroups and species may cause disease. Lab Interpretation (test code = 83434-4) Normal [facility] Center[facility] antigen, [id number] 23:29:07* Test Item Value Reference Range Interpretation Comme nts Legionella Urine Antigen (test code = 97663-3) Negative - see comment Negative Negative for L. pneumophila serogroup 1 antigen, suggesting no recent or current infection with this serogroup. Legionellosis cannot be ruled out since other serogroups and species may cause disease. Lab Interpretation (test code = 49116-8) Normal [facility] Center[facility] antigen, [id number] 23:29:07* Test Item Value Reference Range Interpretation Comme nts Legionella Urine Antigen (test code = 85536-7) Negative - see comment Negative Negative for L. pneumophila serogroup 1 antigen, suggesting no recent or current infection with this serogroup. Legionellosis cannot be ruled out since other serogroups and species may cause disease. Lab Interpretation (test code = 34786-2) Normal [facility] antigen, [id number] 23:29:07* Test Item Value Reference Range Interpretation Comme nts Legionella Urine Antigen (test code = 98222-0) Negative - see comment Negative Negative for L. pneumophila serogroup 1 antigen, suggesting no recent or current infection with this serogroup. Legionellosis cannot be ruled out since other serogroups and species may cause disease. Lab Interpretation (test code = 15335-2) Normal [facility] antigen, [id number] 23:29:07* Test Item Value Reference Range Interpretation Comme nts Legionella Urine Antigen (test code = 95389-9) Negative - see comment Negative Negative for L. pneumophila serogroup 1 antigen, suggesting no recent or current infection with this serogroup. Legionellosis cannot be ruled out since other serogroups and species may cause disease. Lab Interpretation (test code = 97566-9) Normal [facility] Center[facility] antigen, [id number] 23:29:07* Test Item Value Reference Range Interpretation Comme nts Legionella Urine Antigen (test code = 78558-3) Negative - see comment Negative Negative for L. pneumophila serogroup 1 antigen, suggesting no recent or current infection with this serogroup. Legionellosis cannot be ruled out since other serogroups and species may cause disease. Lab Interpretation (test code = 09650-5) Normal [facility] antigen, [id number] 23:29:07* Test Item Value Reference Range Interpretation Comme nts Legionella Urine Antigen (test code = 00999-7) Negative - see comment Negative Negative for L. pneumophila serogroup 1 antigen, suggesting no recent or current infection with this serogroup. Legionellosis cannot be ruled out since other serogroups and species may cause disease. Lab Interpretation (test code = 10568-8) Normal [facility] antigen, [id number] 23:29:07* Test Item Value Reference Range Interpretation Comme nts Legionella Urine Antigen (test code = 89201-3) Negative - see comment Negative Negative for L. pneumophila serogroup 1 antigen, suggesting no recent or current infection with this serogroup. Legionellosis cannot be ruled out since other serogroups and species may cause disease. Lab Interpretation (test code = 00377-6) Normal [facility] antigen, [id number] 23:29:07* Test Item Value Reference Range Interpretation Comme nts Legionella Urine Antigen (test code = 12509-3) Negative - see comment Negative Negative for L. pneumophila serogroup 1 antigen, suggesting no recent or current infection with this serogroup. Legionellosis cannot be ruled out since other serogroups and species may cause disease. Lab Interpretation (test code = 45980-2) Normal [facility] antigen, [id number] 23:29:07* Test Item Value Reference Range Interpretation Comme nts Legionella Urine Antigen (test code = 32172-4) Negative - see comment Negative Negative for L. pneumophila serogroup 1 antigen, suggesting no recent or current infection with this serogroup. Legionellosis cannot be ruled out since other serogroups and species may cause disease. Lab Interpretation (test code = 03694-9) Normal [facility] Center[facility] antigen, [id number] 23:29:07* Test Item Value Reference Range Interpretation Comme nts Legionella Urine Antigen (test code = 87591-6) Negative - see comment Negative Negative for L. pneumophila serogroup 1 antigen, suggesting no recent or current infection with this serogroup. Legionellosis cannot be ruled out since other serogroups and species may cause disease. Lab Interpretation (test code = 53258-5) Normal [facility] Center[facility] antigen, [id number] 23:29:07* Test Item Value Reference Range Interpretation Comme nts Legionella Urine Antigen (test code = 54864-5) Negative - see comment Negative Negative for L. pneumophila serogroup 1 antigen, suggesting no recent or current infection with this serogroup. Legionellosis cannot be ruled out since other serogroups and species may cause disease. Lab Interpretation (test code = 61578-7) Normal [facility] Center[facility] antigen, [id number] 23:29:07* Test Item Value Reference Range Interpretation Comme nts Legionella Urine Antigen (test code = 92036-3) Negative - see comment Negative Negative for L. pneumophila serogroup 1 antigen, suggesting no recent or current infection with this serogroup. Legionellosis cannot be ruled out since other serogroups and species may cause disease. Lab Interpretation (test code = 01624-8) Normal [facility] antigen, [id number] 23:29:07* Test Item Value Reference Range Interpretation Comme nts Legionella Urine Antigen (test code = 75006-8) Negative - see comment Negative Negative for L. pneumophila serogroup 1 antigen, suggesting no recent or current infection with this serogroup. Legionellosis cannot be ruled out since other serogroups and species may cause disease. Lab Interpretation (test code = 37416-9) Normal [facility] Center[facility] antigen, [id number] 23:29:07* Test Item Value Reference Range Interpretation Comme nts Legionella Urine Antigen (test code = 90926-5) Negative - see comment Negative Negative for L. pneumophila serogroup 1 antigen, suggesting no recent or current infection with this serogroup. Legionellosis cannot be ruled out since other serogroups and species may cause disease. Lab Interpretation (test code = 32050-8) Normal [facility] CenterLEGIONELLA ANTIGEN, [id number] 23:29:07* Test Item Value Reference Range Interpretation Comme nts L. PNEUMOPHILA SEROGP 1 UR AG (BEAKER) (test code = 1156) Negative - see comment Negative Negative for L. pneumophila serogroup 1 antigen, suggesting no recent or current infection with this serogroup. Legionellosis cannot be ruled out since other serogroups and species may cause disease. Venous doppler arm, [id number] 20:05:32[facility] - Upper Extremities Veins Demographics Patient Name YUE LAWS Date of Study 06/13/2023 ESTELLE Age 53 Visit Number [id number] Gender Female Accession Number [id number] Date of 1970 Referring Cara Burgess Room Number 1055 Physician Electronics Manufacturer Lisa Ruiz Interpreting John Solorio, Physician FellowProcedureType [...] in cm/s ; Diameters [facility] WITH HIV-1/2 [id number] 18:36:40* Test Item Value Reference Range Interpretation Comme nts HIV-1 ANTIGEN WITH HIV 1\\T\\2 ANTIBODY (2) (LATOYA) (test code = 2586) Nonreactive Nonreactive MR lumbar spine without & with IV [id number] 14:53:29MR LUMBAR SPINE WITH & WITHOUT IV [...] x 1.7x 1.7 cm. Dorsal paraspinal musculature D5eywrnyrcyiuowx. Postcontrast imaging demonstrates mild peripheralenhancement of the dorsal paraspinal fluid collection. Left adrenalgland 2.9 cm nodule.[facility] CenterMR L[facility] SP[facility] WITH & WITHOUT IV [id number] 14:53:29[facility] 1970 [...] 1.7 x 1.7 cm. Dorsal paraspinal musculature M2nksjymgnuddwcs. Postcontrast imaging demonstrates mild peripheralenhancement of the [...] Signed By: Ryan Buckley06/13/2023 14:55 CDTWorkstation Name: [id number] KINASE (CK)2023-06-13 11:54:02* Test Item Value Reference Range Interpretation Comme nts CREATINE KINASE TOTAL (BEAKE R) (test code = 380) 43 U/L 29-200 Design Assembler ID - ADMINCOMPREHENSIVE METABOLIC [id number] 06:48:22* Test Item Value Reference Range Interpretation [...] GFR is not applicable for dialysis patients Design Assembler ID - ADMINPROTHROMBIN TIME/[id number] 06:40:01* Test Item Value Reference Range Interpretation [...] code = 2801) 1.70 % 0.00-1.00 H [id number] 05:26:09* Test Item Value Reference Range Interpretation Comme nts MAGNESIUM (BEAKER) (test cod e = 627) 2.0 mg/dL 1.6-2.6 Design Assembler ID - [id number] 05:26:09* Test Item Value Reference Range Interpretation Comme nts PHOSPHORUS (BEAKER) (test co de = 604) 3.5 mg/dL 2.3-4.7 Design Assembler ID - ADMINBASIC METABOLIC [id number] 05:26:08* Test Item Value Reference Range Interpretation [...] GFR is not applicable for dialysis patients Design Assembler ID - ADMINCBC W/PLT COUNT & AUTO [id number] 05:11:15* Test Item Value Reference Range Interpretation [...] 0.70 % 0.00-1.00 XR spine lumbar 1 [id number] 10:32:20XR SPINE LUMBAR 1 VIEW CLINICAL INDICATION: L3-4 LAMINECTOMY [facility] [id number] 10:32:20 [facility] : 1970 Sex: FXR SPINE LUMBAR 1 VIEWCLINICAL INDICATION: L3-4 LAMINECTOMYCOMPARISON: NoneIMPRESSION:A single lateral view of the lumbar spine is obtained intraoperatively.The posterior approach surgical instrument is seen at the L3-L4 level,inferior to the L3 spinous process. Results were communicated to , who concurred with the above findings. Electronically Signed By: Maxim Ramos08/01/2022 10:34 CDTWo rkstation Name: [id number] SPINE LUMBAR 1 [id number] 10:29:18 [facility] : [...] Signed By: Maxim Ramos08/01/2022 10:31 CDTWorkstation Name: [id number] Screen, [id number] 05:32:52* Test Item Value Reference Range Interpretation Comme nts Preg Test, Ur (test code = 2112-1) Negative Negative Lab Interpretation (test cod e = 78686-0) Normal [facility] CenterPregnancy Screen, [id number] 05:32:52* Test Item Value Reference Range Interpretation Comme nts Preg Test, Ur (test code = 2111-1) Negative Negative Lab Interpretation (test cod e = 79467-6) Normal [facility] CenterPregnancy Screen, [id number] 05:32:52* Test Item Value Reference Range Interpretation Comme nts Preg Test, Ur (test code = 2111-1) Negative Negative Lab Interpretation (test cod e = 04540-9) Normal [facility] CenterPregnancy Screen, [id number] 05:32:52* Test Item Value Reference Range Interpretation Comme nts Preg Test, Ur (test code = 2111-1) Negative Negative Lab Interpretation (test cod e = 52719-3) Normal [facility] CenterPregnancy Screen, [id number] 05:32:52* Test Item Value Reference Range Interpretation Comme nts Preg Test, Ur (test code = 2111-) Negative Negative Lab Interpretation (test cod e = 99585-0) Normal [facility] CenterPreancy Screen, [id number] 05:32:52* Test Item Value Reference Range Interpretation Comme nts Preg Test, Ur (test code = 2111-) Negative Negative Lab Interpretation (test cod e = 35641-2) Normal [facility] CenterPregnancy Screen, [id number] 05:32:52* Test Item Value Reference Range Interpretation Comme nts Preg Test, Ur (test code = 2111-1) Negative Negative Lab Interpretation (test cod e = 63491-6) Normal [facility] CenterPregnancy Screen, [id number] 05:32:52* Test Item Value Reference Range Interpretation Comme nts Preg Test, Ur (test code = 2111-1) Negative Negative Lab Interpretation (test cod e = 26038-6) Normal [facility] CenterPregnancy Screen, [id number] 05:32:52* Test Item Value Reference Range Interpretation Comme nts Preg Test, Ur (test code = 2111-1) Negative Negative Lab Interpretation (test cod e = 40080-5) Normal [facility] CenterPregnancy Screen, [id number] 05:32:52* Test Item Value Reference Range Interpretation Comme nts Preg Test, Ur (test code = 2111-) Negative Negative Lab Interpretation (test cod e = 15423-9) Normal [facility] CenterPregnancy Screen, [id number] 05:32:52* Test Item Value Reference Range Interpretation Comme nts Preg Test, Ur (test code = 2111-) Negative Negative Lab Interpretation (test cod e = 18468-2) Normal [facility] CenterPregnancy Screen, [id number] 05:32:52* Test Item Value Reference Range Interpretation Comme nts Preg Test, Ur (test code = 2111-) Negative Negative Lab Interpretation (test cod e = 23780-5) Normal [facility] CenterPregnancy Screen, [id number] 05:32:52* Test Item Value Reference Range Interpretation Comme nts Preg Test, Ur (test code = 2111-) Negative Negative Lab Interpretation (test cod e = 96862-0) Normal [facility] CenterPregnancy Screen, [id number] 05:32:52* Test Item Value Reference Range Interpretation Comme nts Preg Test, Ur (test code = 2111-) Negative Negative Lab Interpretation (test cod e = 58194-4) Normal [facility] CenterPregnancy Screen, [id number] 05:32:52* Test Item Value Reference Range Interpretation Comme nts Preg Test, Ur (test code = 2111-) Negative Negative Lab Interpretation (test cod e = 00988-4) Normal [facility] CenterPregnancy Screen, [id number] 05:32:52* Test Item Value Reference Range Interpretation Comme nts Preg Test, Ur (test code = 2111-) Negative Negative Lab Interpretation (test cod e = 74259-2) Normal [facility] CenterPregnancy Screen, [id number] 05:32:52* Test Item Value Reference Range Interpretation Comme nts Preg Test, Ur (test code = 2111-) Negative Negative Lab Interpretation (test cod e = 56161-3) Normal [facility] CenterPregnancy Screen, [id number] 05:32:52* Test Item Value Reference Range Interpretation Comme nts Preg Test, Ur (test code = 2111-1) Negative Negative Lab Interpretation (test cod e = 25041-1) Normal [facility] CenterPregnancy Screen, [id number] 05:32:52* Test Item Value Reference Range Interpretation Comme nts Preg Test, Ur (test code = 2-1) Negative Negative Lab Interpretation (test cod e = 59606-1) Normal [facility] CenterPregnancy Screen, [id number] 05:32:52* Test Item Value Reference Range Interpretation Comme nts Preg Test, Ur (test code = 2-1) Negative Negative Lab Interpretation (test cod e = 58391-2) Normal [facility] CenterPregnancy Screen, [id number] 05:32:52* Test Item Value Reference Range Interpretation Comme nts Preg Test, Ur (test code = 2111-) Negative Negative Lab Interpretation (test cod e = 72401-9) Normal [facility] CenterPregnancy Screen, [id number] 05:32:52* Test Item Value Reference Range Interpretation Comme nts Preg Test, Ur (test code = 2111-) Negative Negative Lab Interpretation (test cod e = 71302-3) Normal [facility]Pregnancy Screen, [id number] 05:32:52* Test Item Value Reference Range Interpretation Comme nts Preg Test, Ur (test code = 2111-1) Negative Negative Lab Interpretation (test cod e = 61588-6) Normal [facility] CenterPregnancy Screen, [id number] 05:32:52* Test Item Value Reference Range Interpretation Comme nts Preg Test, Ur (test code = 2111-1) Negative Negative Lab Interpretation (test cod e = 68525-4) Normal [facility] CenterPregnancy Screen, [id number] 05:32:52* Test Item Value Reference Range Interpretation Comme nts Preg Test, Ur (test code = 2111-1) Negative Negative Lab Interpretation (test cod e = 33304-9) Normal [facility] CenterPregnancy Screen, [id number] 05:32:52* Test Item Value Reference Range Interpretation Comme nts Preg Test, Ur (test code = 2111-1) Negative Negative Lab Interpretation (test cod e = 91122-0) Normal [facility] CenterPregnancy Screen, [id number] 05:32:52* Test Item Value Reference Range Interpretation Comme nts Preg Test, Ur (test code = 2-1) Negative Negative Lab Interpretation (test cod e = 70574-6) Normal [facility] CenterPregnancy Screen, [id number] 05:32:52* Test Item Value Reference Range Interpretation Comme nts Preg Test, Ur (test code = 2-1) Negative Negative Lab Interpretation (test cod e = 19271-2) Normal [facility] CenterPregnancy Screen, [id number] 05:32:52* Test Item Value Reference Range Interpretation Comme nts Preg Test, Ur (test code = 2111-) Negative Negative Lab Interpretation (test cod e = 36124-5) Normal [facility] CenterPregnancy Screen, [id number] 05:32:52* Test Item Value Reference Range Interpretation Comme nts Preg Test, Ur (test code = 2111-) Negative Negative Lab Interpretation (test cod e = 85477-2) Normal [facility] CenterPregnancy Screen, [id number] 05:32:52* Test Item Value Reference Range Interpretation Comme nts Preg Test, Ur (test code = 2111-1) Negative Negative Lab Interpretation (test cod e = 89600-7) Normal [facility] CenterPregnancy Screen, [id number] 05:32:52* Test Item Value Reference Range Interpretation Comme nts Preg Test, Ur (test code = 2111-) Negative Negative Lab Interpretation (test cod e = 76059-8) Normal [facility] CenterPREGNANCY SCREEN, [id number] 05:32:52* Test Item Value Reference Range Interpretation Comme nts TEST URINE (BEAKER ) (test code = 583) Negative Negative BASIC METABOLIC [id number] 23:30:54* Test Item Value Reference Range Interpretation [...] GFR is not applicable for dialysis patients Design Assembler ID - ADMINPT/[id number] 23:15:33* Test Item Value Reference Range Interpretation [...] H CT neck soft tissue without IV [id number] 13:45:22EXAM: CT NECK SOFT TISSUE WITHOUT IV [...] Postoperative changes from anterior cervical discectomy fusionat C3-Q8Nekfzidh Lung Apices: NormalCH[facility]CT [facility] SO[facility] WITHOUT IV [id number] 13:45:22 [facility] 1970 [...] Postoperative changes from anterior cervical discectomy fusionat C3-D8Iirhcxrx Lung Apices: NormalIMPRESSION:Exam limited by lack of intravenous contrast.1. 1.8 x 2.9 x 1.3 cm ill-defined fluid collection in the leftanterolateral neck soft tissues, suggesting evolving postoperativehemorrhage. Superimposed infection is not ex cluded.2. Retropharyngeal fluid and air measuring up to 0.8 cm in thickness,favored to be present postoperative right frontal edema. Superimposedinfection is not excluded.3. Postoperative changes from ACDF at C3- Y2Xnidygthhqnkam Signed By: Maxim Ramos07/31/2022 13:47 CDTWorkstation Name: [id number] METABOLIC [id number] 08:13:13* Test Item Value Reference Range Interpretation [...] GFR is not applicable for dialysis patients Design Assembler ID - BVCBC W/PLT COUNT & AUTO [id number] 07:46:31* Test Item Value Reference Range Interpretation [...] 0.00-1.00 XR spine cervical 2 or 3 [id number] 20:24:23TECHNIQUE: Frontal and lateral views of the cervical spine. INDICATION: Postop Standing Films. COMPARISON: None.[facility]XR SPINE CERVICAL 2 OR 3 [id number] 20:24:23[facility] : 1970 [...] Signed By: Zachariah Garcia05/28/2023 20:26 CDTWorkstation Name: [id number] fluoro non-specific up to 1 hour 2023-05-28 11:45:16This is a non-reportable study with no Radiologist dictation. Please refer to your PACS to review images, or Doc Flowsheets for documentation on studies without images.[facility] CenterFL FLUORO NON-SPECIFIC UP TO 1 [id number] 11:45:16 [facility] : 1970 Sex: FThis is a non- reportable study with no Radiologist dictation. Please refer to your PACS to review images, or Doc Flowsheets for documentation on studies without images.FL FLUORO NON-SPECIFIC UP TO 1 [id number] 10:13:02 [facility] : 1970 Sex: FTECHNIQUE: 1 lateral fluoroscopic image of the cervical spine forlocalization.Fluoroscopic time: 3second(s).FINDINGS:The surgical pointer is at C3-C4.The findings were discussed with Dr. Garcia in theOR who concurred withthe findings.IMPRESSION:Intraoperative localization plain film as described abo ve.Electronically Signed By: Derik Reyez05/28/2023 10:15 CDTWorkstation Name: [id number], QUANTITATIVE, [id number] 08:21:03* Test Item Value Reference Range Interpretation Comme nts GONADOTROPIN, CHORIONIC (HCG ) QUANT (BEAKER) (test code = 649) < mIU/mL 0-10 Non- Females: <10 mIU/mL Females: Gestation Age Reference Range(mIU/mL) 0.2-1 Week 5-50 1-2 Weeks 50-500 2-3 Weeks 100-5,000 3-4 Weeks 500-10,000 4-5 Weeks 1,000-50,000 5-6 Weeks 10,000-100,000 6-8 Weeks 15,000- 200,000 2-3 Months 10,000-100,000 Design Assembler ID - ADMINCULTURE, [id number] 09:28:30SPECIMEN NUMBER: [id number] CULTURE, URINE SPECIMEN NUMBER: [id number] SPECIMEN COMMENT: URINE SOURCE: URINE REPORT STATUS: FINAL FINAL REPORT: 05/15/2023 >100,000 CFU/ML UROGENITAL REBEL PRESENT NO COMMON PATHOGENS UNLESS OTHERWISE INDICATED, ALL TESTING PERFORMED AT [facility] [address] [place] [address] [employer] RIGGER: JANNY STEINER M.D. CLIA NUMBER [id number] [place]. [id number], [id number] 12:02:50SPECIMEN NUMBER: [id number] CULTURE, URINE SPECIMEN NUMBER: [id number] SOURCE: URINE REPORT STATUS: FINAL FINAL REPORT: 05/13/2023 NO SPECIMEN RECEIVED FOR TESTING. CHARGES DELETED.BASIC METABOLIC [id number] 04:48:43* Test Item Value Reference Range Interpretation Comme nts GLUCOSE (test code = 2217) 117 MG/DL 70-99 H BUN (test code = 2208) 20 MG/DL 6-20 CREATININE (test code = 2214) 0.83 MG/DL 0.60-1.30 eGFR (2020 CKD-EPI) (test co de = 12861) 85 ML/MIN/1.73 >60 SODIUM (test code = [...] 12.7 SECONDS 12.5-14.7 INR (test code = 59677) 0.9 SEE BELOW CURRENT RECOMMENDATIONS ARE FOR AN INR OF 2.0-3.0 FOR ALL PATIENTS ON VITAMIN K ANTAGONISTS, EXCEPT THOSE WITH PROSTHETIC HEART VALVES, FOR WHOM INR OF 2.5-3.5 IS RECOMMENDED. UNLESS OTHERWISE INDICATED, ALL TESTING PERFORMED AT [facility] [address] [place] [address] [employer] RIGGER: JANNY STEINER M.D. CLIA NUMBER [id number] [facility] [place]. [id number] CBC W/AUTO DIFF WITH [id number] 01:54:17* Test Item Value Reference Range Interpretation [...] = 1065) 0.0 /100 WBC'S See_Comment [Automated Flare3da ge] The system which generated this result [...] H ABS NUCLEATED RBCS (test code = 49845) 0.00 K/UL 0.00-0.11 ECG 12 [id number] 14:02:48Ventricular Rate 102 BPMAtrial Rate 102 BPMP-R Interval 146 msQRS Duration 90 msQ-T Interval 372 msQTC Calculation(Bazett) 484 msP [place] 11 degreesR [place] -53 degreesT [place] 29 degrees Sinus tachycardiaPossible Left atrial enlargementLeft axis deviationPoor R wave progression Cannot rule out Anterior infarct , age undetermined vs lead misplacementNonspecific T wave abnormalityProlonged QTAbnormal ECGNo previous ECGs availableConfirmed by David GARCIA BASANT ([id number]) on 04/06/2023 2:02:46 [facility] CenterECHO W CONTRAST & [id number] 13:11:39Transthoracic Echocardiography Report (TTE) Demographics Patient Name YUE LAWS Date of Study 03/31/2023 ESTELLE Gender Female Visit Number [id number] Race Room Number 2227 Number Date of 1970 Referring Physician Mariah Aldridge MD Age 53year(s) Electronics Manufacturer Wilmer Francois Powerhouse Electrician Josefina Corbett, [facility] Interpreting Physician Melody MDProcedure Type of Study [...] cmAorta Ao Root S of Rosangela.: 3.08 cmDoppler/Qu antitative Measurements Mitral Valve MV Peak E-Wave: 1.24 [...] Peak Velocity: 0.74 m/s Peak Gradient: 2.22 mmHgPorterville Developmental CenterXR chest 1 view portable / [id number] 15:39:07TECHNIQUE: Frontal view of the chest. INDICATION: CHf. COMPARISON: None. FINDINGS: LINES/TUBES: None. HEART AND MEDIASTINUM: Cardiomediastinal contour is within normallimits. LUNGS: The lungs are well inflated and clear. No consolidation orpulmonary edema. PLEURA: No pneumothorax. No significant pleural effusion. SOFT TISSUES AND BONES: Cervical spinal fixation hardware is noted.[facility] CenterXR CHEST 1 VIEW PORTABLE / [id number] 15:39:07 [facility] : 1970 Sex: FTECHNIQUE: Frontal view of the chest.INDICATION: CHf.COMPARISON: None.FINDINGS:LINES/TUBES: None.HE ART AND MEDIASTINUM: Cardiomediastinal contour is within normallimits. LUNGS: The lungs are well inflated and clear. No consolidation orpulmonary edema.PLEURA: No pneumothorax. No significant pleuraleffusion.SOFT TISSUES AND BONES: Cervical spinal fixation hardware is noted.IMPRESSION:No acute card iopulmonary process.Electronically Signed By: Jose Carlos Mebcyovfpzz40/13/2023 15:41 CDTWorkstation Name: [id number] NATRIURETIC FACTOR (BNP)2023-04-01 14:15:07* Test Item Value Reference Range Interpretation Comme nts B-TYPE NATRIURETIC PEPTIDE ( BEAKER) (test code = 700) 192 pg/mL 0-100 H Design Assembler ID - ADMINMR spine cervical without IV [id number] 11:30:35MRI cervical spine without contrast CLINICAL HISTORY: [...] and paraspinal soft tissues are within normal limits.[facility] CenterMR CERVICAL SPINE WITHOUT IV [id number] 11:30:35 [facility] : [...] Signed By: Maxim Sultana03/31/2023 11:32 CDTWorkstation Name: [id number] METABOLIC [id number] 04:43:14* Test Item Value Reference Range Interpretation [...] GFR is not applicable for dialysis patients Design Assembler GEOVANNA CORREA [facility] (HEMOGRAM ONLY)2023-03-31 04:20:07* Test Item Value [...] 0 /100 WBC 0-0 Arterial doppler legs [id number] 17:44:07PV LAB - Lower Extremity Arterial Duplex Demographics Patient Name YUE LAWS Date of Study ESTELLE Age 53 Visit Number [id number] Gender Female Accession Number [id number] Date of 1970 Referring Mariah Aldridge, Room Number 2227 Physician Electronics Manufacturer Yovana Akins Interpreting John Solorio, Physician FellowProcedureType [...] ! !Triphasic ! !80.9 ! !Triphasic ! +---- + + + + + + + + + !Dist Popliteal ! !69.5 ! !Triphasic ! !70.4 ! !Triphasic ! + + + + + + + + + + !Prox PLATINUMSMITH ! !32 ! !Biphasic ! !60.9 ! !Triphasic ! +-- + + + + + + + + + !Mid PLATINUMSMITH ! !25.9 ! !Biphasic ! !59.7 ! !Triphasic ! + + + + + + + + + + !Dist PLATINUMSMITH ! !33.2 ! !Biphasic ! !37.4 ! !Biphasic ! +------ + + + + + [...] + + + + + + +[facility] CenterABI's Only(Ankle/Brachial Index)2023-03-30 17:13:47PV LAB - Lower Extremity Arterial Procedure Demographics Patient Name YUE LAWS Date of Study 03/30/2023 ESTELLE Age 53 Visit Number [id number] Gender Female Accession Number [id number] Date of 1970 Referring Mariah Aldridge, Room Number 2227 Physician Electronics Manufacturer Yovana Akins Interpreting John Solorio, Physician FellowProcedureType [...] in cm/s ; Diameters are measured in [facility] thoracic spine without IV [id number] 12:50:50 THORACIC SPINE WITHOUT IV CONTRAST INDICATION: [...] abnormality. T10-11 moderate right neural foraminal stenosis [id number] moderate bilateral foraminal stenosis due to facet hypertrophyand ligamentum flavum redundancy. Thoracic vertebrae maintain normal height. Mild multilevel degenerativedisc changes. No evidence of acute osseous fracture or traumaticmalalignment. No paraspinal mass. Conus medullaris terminates at L1. Redundant cauda equina partiallyimaged and further reported on MRI lumbar spine.[facility] CenterMR THORACIC SPINE WITHOUT IV [id number] 12:50:50 [facility] : [...] abnormality. T10-11 moderate right neural foraminal stenosis [id number] moderate bilateral foraminal stenosis due to facet [...] Signed By: Ryan Buckley03/30/2023 12:52 CDTWorkstation Name: [id number] spine lumbar without IV [id number] 12:33:57MR LUMBAR SPINE WITHOUT IV CONTRAST INDICATION: Unlisted Reason for ExamConcern for cord compression COMPARISON: None TECHNIQUE: Multiplanar, multisequence MR images of the lumbar spinewithout contrast. FINDINGS: For the purposes of this dictation, the 5 lowermost orglki-hdegpcpjlkkgy-otmk vertebral bodies are labeled L1-L5.Alignment of the [...] with mild to moderatebilateral neural foraminal stenosisCHI Ucsf Medical CenterMR LUMBAR SPINE WITHOUT IV [id number] 12:33:57 [facility] : 1970 Sex: FMR LUMBAR SPINE WITHOUT IV CONTRASTINDICATION: Unlisted Reason for ExamConcern for cord compressionCOMPARISON: NoneTECHNIQUE: Multiplanar, multisequence MR images of the lumbar spinewithout contrast. FINDINGS: For the purposes of this dictation, the 5 lowermost srekhp-detlxxrmurdpv-vrpq vertebral bodies are labeled L1- L5.Alignment of the lumbar spine is within normal limits. Vertebral body height is maintained. Bone marrow edema is seen at the inferior L3 and superior L4 vertebralbodies and bilateral L4 pedicles, favored to be degenerative in nature.Suggestion of a synovial cyst at the dqcidH72-M43 level (series 301image eight).No spinal cord signal [...] flavum buckling versus synovial cyst at the nztxkT93-W18 level (series 301image eight). MRI thoracic spine can beconsidered for further evaluation.7. Mild clumping of the cauda equina nerve roots, which is nonspecificbut may represent arachnoiditis. Postcontrast imaging can be consideredfor further evaluation.Electronically Signed By: Maxim Sultana03/30/2023 12:36 CDTWorkstation Name: [id number] [id number] 11:45:01* Test Item Value Reference Range Interpretation [...] 5.7- 6.4% indicates increased risk for diabetes (prediabetes)."Design Assembler ID - ADMEEG AWAKE AND [id number] 09:57:53Steph Martinez MD 03/30/2023 9:[address] Type: Inpatient, outpatient, EMUDATE(s) OF EE03/30/23DATE OF REPORT: 03/30/23MRN: [id number] of : 1970EE-1454Start time: 08:36Stop time: 09:23ICD-10: R56.9 CPT Code: 05061 (awake and asleep)HISTORY: 53 y/o female with [...] EEG recordings. Steph Elias MD, MPHNeurophysiology/Epilepsy AttendingCHI [facility] Center EEG AWAKE AND [id number] 09:57:53Steph Martinez MD 03/30/2023 9:[address] Type: Inpatient, outpatient, EMUDATE(s) OF EE03/30/23DATE OF REPORT: 03/30/23MRN: [id number] of : 1970EE-1454Start time: 08:36Stop time: 09:23ICD-10: R56.9 CPT Code: 03710 (awake and asleep)HISTORY: 53 y/o female with [...] EEG recordings. Steph Elias MD, MPHNeurophysiology/Epilepsy AttendingCHI [facility] Center EEG AWAKE AND [id number] 09:57:53Gadarcy Martinez MD 03/30/2023 9:[address] [facility] Type: Inpatient, outpatient, EMUDATE(s) OF EE03/30/23DATE OF REPORT: 03/30/23MRN: [id number] of : 1970EE-1454Start time: 08:36Stop time: 09:23ICD-10: R56.9 CPT Code: 34821 (awake and asleep)HISTORY: 53 y/o female with [...] EEG recordings. Steph Elias MD, MPHNeurophysiology/Epilepsy AttendingCHI [facility] Center VALPROIC ACID LEVEL, [id number] 09:42:31* Test Item Value Reference Range Interpretation Comme nts VALPROIC ACID TOTAL (BEAKER) (test code = 924) 76 ug/mL 50-100 Therapeutic range for some clinical conditions may be >100 ug/mLUrinalysis w/Microscopic + Reflex to [id number] 08:43:51* Test Item Value Reference Range Interpretation Comme nts Color, UA (test code = 5778-6) Yellow Clarity, UA (test code = 5767-9) Clear Specific [place], UA (test code = 5811-5) 1.033 1.001-1.035 pH, UA (test code = 5803-2) 6.0 5.0-8.0 Protein, UA (test code = 15125-7) 30 mg/dL Negative A Glucose, UA (test code = 365) Negative Negative Ketones, UA (test code = 2514-8) Negative Negative Bilirubin, UA (test code = 08145-9) Negative Negative Blood, UA (test code = 97295-5) Small Negative A Nitrite, UA (test code = 5802-4) Negative Negative Leukocytes, UA (test code = 5799-2) Negative Negative Urobilinogen, UA (test code = 63356-3) 0.2 0.2-1.0 RBC, UA (test code = 15832-1) 51 See_Comment [Automated message] The system which [...] Occasional Squam Epithel, UA (test code = 93171-4) See_Comment [Automated message] The system which generated this result transmitted reference range: /HPF. The reference range was not used to interpret this result as normal/abnormal. Specimen Source (test code = 2795) LYNDSAY (test code = LYNDSAY) Design Assembler ID - [auto]Design Assembler ID - tech Lab Interpretation (test code = 60507-8) Abnormal [facility] CenterUrinalysis w/Microscopic + Reflex to Culture 2023-03-30 08:43:51* Test Item Value Reference Range Interpretation Comme nts Color, UA (test code = 5778-6) Yellow Clarity, UA (test code = 5767-9) Clear Specific [place], UA (test code = 5811-5) 1.033 1.001-1.035 pH, UA (test code = 5803-2) 6.0 5.0-8.0 Protein, UA (test code = 48066-3) 30 mg/dL Negative A Glucose, UA (test code = 365) Negative Negative Ketones, UA (test code = 2514-8) Negative Negative Bilirubin, UA (test code = 63127-4) Negative Negative Blood, UA (test code = 02402-3) Small Negative A Nitrite, UA (test code = 5802-4) Negative Negative Leukocytes, UA (test code = 5799-2) Negative Negative Urobilinogen, UA (test code = 19898-8) 0.2 0.2-1.0 RBC, UA (test code = 52920-6) 51 See_Comment [Automated message] The system which [...] Occasional Squam Epithel, UA (test code = 49912-4) See_Comment [Automated message] The system which generated this result transmitted reference range: /HPF. The reference range was not used to interpret this result as normal/abnormal. Specimen Source (test code = 2795) LYNDSAY (test code = LYNDSAY) Design Assembler ID - [auto]Design Assembler ID - tech Lab Interpretation (test code = 62727-4) Abnormal [facility] CenterUrinalysis w/Microscopic + Reflex to Culture 2023-03-30 08:43:51* Test Item Value Reference Range Interpretation Comme nts Color, UA (test code = 5778-6) Yellow Clarity, UA (test code = 5767-9) Clear Specific [place], UA (test code = 5811-5) 1.033 1.001-1.035 pH, UA (test code = 5803-2) 6.0 5.0-8.0 Protein, UA (test code = 34662-9) 30 mg/dL Negative A Glucose, UA (test code = 365) Negative Negative Ketones, UA (test code = 2514-8) Negative Negative Bilirubin, UA (test code = 70365-5) Negative Negative Blood, UA (test code = 68181-0) Small Negative A Nitrite, UA (test code = 5802-4) Negative Negative Leukocytes, UA (test code = 5799-2) Negative Negative Urobilinogen, UA (test code = 54268-9) 0.2 0.2-1.0 RBC, UA (test code = 02240-2) 51 See_Comment [Automated message] The system which [...] Occasional Squam Epithel, UA (test code = 18776-0) See_Comment [Automated message] The system which generated this result transmitted reference range: /HPF. The reference range was not used to interpret this result as normal/abnormal. Specimen Source (test code = 2795) LYNDSAY (test code = LYNDSAY) Design Assembler ID - [auto]Design Assembler ID - tech Lab Interpretation (test code = 03295-1) Abnormal [facility] CenterUrinalysis w/Microscopic + Reflex to Culture 2023-03-30 08:43:51* Test Item Value Reference Range Interpretation Comme nts Color, UA (test code = 5778-6) Yellow Clarity, UA (test code = 5767-9) Clear Specific [place], UA (test code = 5811-5) 1.033 1.001-1.035 pH, UA (test code = 5803-2) 6.0 5.0-8.0 Protein, UA (test code = 54004-8) 30 mg/dL Negative A Glucose, UA (test code = 365) Negative Negative Ketones, UA (test code = 2514-8) Negative Negative Bilirubin, UA (test code = 17491-8) Negative Negative Blood, UA (test code = 26540-9) Small Negative A Nitrite, UA (test code = 5802-4) Negative Negative Leukocytes, UA (test code = 5799-2) Negative Negative Urobilinogen, UA (test code = 66929-6) 0.2 0.2-1.0 RBC, UA (test code = 93886-3) 51 See_Comment [Automated message] The system which [...] Occasional Squam Epithel, UA (test code = 63371-3) See_Comment [Automated message] The system which generated this result transmitted reference range: /HPF. The reference range was not used to interpret this result as normal/abnormal. Specimen Source (test code = 2795) LYNDSAY (test code = LYNDSAY) Design Assembler ID - [auto]Design Assembler ID - tech Lab Interpretation (test code = 52037-6) Abnormal [facility] CenterUrinal[facility] w/[facility]opic + Reflex to Culture 2023-03-30 08:43:51* Test Item Value Reference Range Interpretation Comme nts Color, UA (test code = 5778-6) Yellow Clarity, UA (test code = 5767-9) Clear Specific [place], UA (test code = 5811-5) 1.033 1.001-1.035 pH, UA (test code = 5803-2) 6.0 5.0-8.0 Protein, UA (test code = 90442-8) 30 mg/dL Negative A Glucose, UA (test code = 365) Negative Negative Ketones, UA (test code = 2514-8) Negative Negative Bilirubin, UA (test code = 47280-1) Negative Negative Blood, UA (test code = 96331-1) Small Negative A Nitrite, UA (test code = 5802-4) Negative Negative Leukocytes, UA (test code = 5799-2) Negative Negative Urobilinogen, UA (test code = 25519-1) 0.2 0.2-1.0 RBC, UA (test code = 35238-0) 51 See_Comment [Automated message] The system which [...] Occasional Squam Epithel, UA (test code = 29549-2) See_Comment [Automated message] The system which generated this result transmitted reference range: /HPF. The reference range was not used to interpret this result as normal/abnormal. Specimen Source (test code = 2795) LYNDSAY (test code = LYNDSAY) Design Assembler ID - [auto]Design Assembler ID - tech Lab Interpretation (test code = 91292-2) Abnormal [facility] CenterUr[facility] w/Microscopic + Reflex to Culture 2023-03-30 08:43:51* Test Item Value Reference Range Interpretation Comme nts Color, UA (test code = 5778-6) Yellow Clarity, UA (test code = 5767-9) Clear Specific [place], UA (test code = 5811-5) 1.033 1.001-1.035 pH, UA (test code = 5803-2) 6.0 5.0-8.0 Protein, UA (test code = 07194-4) 30 mg/dL Negative A Glucose, UA (test code = 365) Negative Negative Ketones, UA (test code = 2514-8) Negative Negative Bilirubin, UA (test code = 32025-7) Negative Negative Blood, UA (test code = 12825-2) Small Negative A Nitrite, UA (test code = 5802-4) Negative Negative Leukocytes, UA (test code = 5799-2) Negative Negative Urobilinogen, UA (test code = 87646-4) 0.2 0.2-1.0 RBC, UA (test code = 39152-3) 51 See_Comment [Automated message] The system which [...] Occasional Squam Epithel, UA (test code = 70108-4) See_Comment [Automated message] The system which generated this result transmitted reference range: /HPF. The reference range was not used to interpret this result as normal/abnormal. Specimen Source (test code = 2795) LYNDSAY (test code = LYNDSAY) Design Assembler ID - [auto]Design Assembler ID - tech Lab Interpretation (test code = 36989-0) Abnormal [facility] Center[facility] w/Microscopic + Reflex to Culture 2023-03-30 08:43:51* Test Item Value Reference Range Interpretation Comme nts Color, UA (test code = 5778-6) Yellow Clarity, UA (test code = 5767-9) Clear Specific [place], UA (test code = 5811-5) 1.033 1.001-1.035 pH, UA (test code = 5803-2) 6.0 5.0-8.0 Protein, UA (test code = 43344-4) 30 mg/dL Negative A Glucose, UA (test code = 365) Negative Negative Ketones, UA (test code = 2514-8) Negative Negative Bilirubin, UA (test code = 55230-5) Negative Negative Blood, UA (test code = 67215-2) Small Negative A Nitrite, UA (test code = 5802-4) Negative Negative Leukocytes, UA (test code = 5799-2) Negative Negative Urobilinogen, UA (test code = 49192-8) 0.2 0.2-1.0 RBC, UA (test code = 49528-7) 51 See_Comment [Automated message] The system which [...] Occasional Squam Epithel, UA (test code = 98705-0) See_Comment [Automated message] The system which generated this result transmitted reference range: /HPF. The reference range was not used to interpret this result as normal/abnormal. Specimen Source (test code = 2795) LYNDSAY (test code = LYNDSAY) Design Assembler ID - [auto]Design Assembler ID - tech Lab Interpretation (test code = 98103-3) Abnormal [facility] CenterUrinalysis w/Microscopic + Reflex to Culture 2023-03-30 08:43:51* Test Item Value Reference Range Interpretation Comme nts Color, UA (test code = 5778-6) Yellow Clarity, UA (test code = 5767-9) Clear Specific [place], UA (test code = 5811-5) 1.033 1.001-1.035 pH, UA (test code = 5803-2) 6.0 5.0-8.0 Protein, UA (test code = 72127-9) 30 mg/dL Negative A Glucose, UA (test code = 365) Negative Negative Ketones, UA (test code = 2514-8) Negative Negative Bilirubin, UA (test code = 33377-6) Negative Negative Blood, UA (test code = 70868-7) Small Negative A Nitrite, UA (test code = 5802-4) Negative Negative Leukocytes, UA (test code = 5799-2) Negative Negative Urobilinogen, UA (test code = 27854-1) 0.2 0.2-1.0 RBC, UA (test code = 84661-6) 51 See_Comment [Automated message] The system which [...] Occasional Squam Epithel, UA (test code = 42083-3) See_Comment [Automated message] The system which generated this result transmitted reference range: /HPF. The reference range was not used to interpret this result as normal/abnormal. Specimen Source (test code = 2795) LYNDSAY (test code = LYNDSAY) Design Assembler ID - [auto]Design Assembler ID - tech Lab Interpretation (test code = 57734-0) Abnormal [facility] Center[facility]inalysis w/Microscopic + Reflex to Culture 2023-03-30 08:43:51* Test Item Value Reference Range Interpretation Comme nts Color, UA (test code = 5778-6) Yellow Clarity, UA (test code = 5767-9) Clear Specific [place], UA (test code = 5811-5) 1.033 1.001-1.035 pH, UA (test code = 5803-2) 6.0 5.0-8.0 Protein, UA (test code = 02398-9) 30 mg/dL Negative A Glucose, UA (test code = 365) Negative Negative Ketones, UA (test code = 2514-8) Negative Negative Bilirubin, UA (test code = 69533-2) Negative Negative Blood, UA (test code = 11587-8) Small Negative A Nitrite, UA (test code = 5802-4) Negative Negative Leukocytes, UA (test code = 5799-2) Negative Negative Urobilinogen, UA (test code = 35142-6) 0.2 0.2-1.0 RBC, UA (test code = 97452-3) 51 See_Comment [Automated message] The system which [...] Occasional Squam Epithel, UA (test code = 12359-8) See_Comment [Automated message] The system which generated this result transmitted reference range: /HPF. The reference range was not used to interpret this result as normal/abnormal. Specimen Source (test code = 2795) LYNDSAY (test code = LYNDSAY) Design Assembler ID - [auto]Design Assembler ID - tech Lab Interpretation (test code = 80511-4) Abnormal [facility]/Microscopic + Reflex to Culture 2023-03-30 08:43:51* Test Item Value Reference Range Interpretation Comme nts Color, UA (test code = 5778-6) Yellow Clarity, UA (test code = 5767-9) Clear Specific [place], UA (test code = 5811-5) 1.033 1.001-1.035 pH, UA (test code = 5803-2) 6.0 5.0-8.0 Protein, UA (test code = 61680-2) 30 mg/dL Negative A Glucose, UA (test code = 365) Negative Negative Ketones, UA (test code = 2514-8) Negative Negative Bilirubin, UA (test code = 12449-6) Negative Negative Blood, UA (test code = 57171-5) Small Negative A Nitrite, UA (test code = 5802-4) Negative Negative Leukocytes, UA (test code = 5799-2) Negative Negative Urobilinogen, UA (test code = 11640-1) 0.2 0.2-1.0 RBC, UA (test code = 29769-4) 51 See_Comment [Automated message] The system which [...] Occasional Squam Epithel, UA (test code = 38780-5) See_Comment [Automated message] The system which generated this result transmitted reference range: /HPF. The reference range was not used to interpret this result as normal/abnormal. Specimen Source (test code = 2795) LYNDSAY (test code = LYNDSAY) Design Assembler ID - [auto]Design Assembler ID - tech Lab Interpretation (test code = 64522-8) [facility]-30 08:43:51* Test Item Value Reference Range Interpretation Comme nts Color, UA (test code = 5778-6) Yellow Clarity, UA (test code = 5767-9) Clear Specific [place], UA (test code = 5811-5) 1.033 1.001-1.035 pH, UA (test code = 5803-2) 6.0 5.0-8.0 Protein, UA (test code = 13428-3) 30 mg/dL Negative A Glucose, UA (test code = 365) Negative Negative Ketones, UA (test code = 2514-8) Negative Negative Bilirubin, UA (test code = 51241-3) Negative Negative Blood, UA (test code = 32022-5) Small Negative A Nitrite, UA (test code = 5802-4) Negative Negative Leukocytes, UA (test code = 5799-2) Negative Negative Urobilinogen, UA (test code = 12169-6) 0.2 0.2-1.0 RBC, UA (test code = 22968-9) 51 See_Comment [Automated message] The system which [...] Occasional Squam Epithel, UA (test code = 54288-6) See_Comment [Automated message] The system which generated this result transmitted reference range: /HPF. The reference range was not used to interpret this result as normal/abnormal. Specimen Source (test code = 2795) LYNDSAY (test code = LYNDSAY) Design Assembler ID - [auto]Design Assembler ID - tech Lab Interpretation (test code = 53953-8) [facility] 08:43:51* Test Item Value Reference Range Interpretation Comme nts Color, UA (test code = 5778-6) Yellow Clarity, UA (test code = 5767-9) Clear Specific [place], UA (test code = 5811-5) 1.033 1.001-1.035 pH, UA (test code = 5803-2) 6.0 5.0-8.0 Protein, UA (test code = 09861-4) 30 mg/dL Negative A Glucose, UA (test code = 365) Negative Negative Ketones, UA (test code = 2514-8) Negative Negative Bilirubin, UA (test code = 34981-0) Negative Negative Blood, UA (test code = 68460-9) Small Negative A Nitrite, UA (test code = 5802-4) Negative Negative Leukocytes, UA (test code = 5799-2) Negative Negative Urobilinogen, UA (test code = 26023-2) 0.2 0.2-1.0 RBC, UA (test code = 90219-1) 51 See_Comment [Automated message] The system which [...] Occasional Squam Epithel, UA (test code = 43765-4) See_Comment [Automated message] The system which generated this result transmitted reference range: /HPF. The reference range was not used to interpret this result as normal/abnormal. Specimen Source (test code = 2795) LYNDSAY (test code = LYNDSAY) Design Assembler ID - [auto]Design Assembler ID - tech Lab Interpretation (test code = 31012-5) [facility]normal [facility] 2023-[facility]-30 08:43:51* Test Item Value Reference Range Interpretation Comme nts Color, UA (test code = 5778-6) Yellow Clarity, UA (test code = 5767-9) Clear Specific [place], UA (test code = 5811-5) 1.033 1.001-1.035 pH, UA (test code = 5803-2) 6.0 5.0-8.0 Protein, UA (test code = 63351-0) 30 mg/dL Negative A Glucose, UA (test code = 365) Negative Negative Ketones, UA (test code = 2514-8) Negative Negative Bilirubin, UA (test code = 93698-5) Negative Negative Blood, UA (test code = 74225-4) Small Negative A Nitrite, UA (test code = 5802-4) Negative Negative Leukocytes, UA (test code = 5799-2) Negative Negative Urobilinogen, UA (test code = 98578-9) 0.2 0.2-1.0 RBC, UA (test code = 36361-0) 51 See_Comment [Automated message] The system which [...] Occasional Squam Epithel, UA (test code = 34476-1) See_Comment [Automated message] The system which generated this result transmitted reference range: /HPF. The reference range was not used to interpret this result as normal/abnormal. Specimen Source (test code = 2795) LYNDSAY (test code = LYNDSAY) Design Assembler ID - [auto]Design Assembler ID - tech Lab Interpretation (test code = 68152-1) [facility] Culture 2023-03-30 08:43:51* Test Item Value Reference Range Interpretation Comme nts Color, UA (test code = 5778-6) Yellow Clarity, UA (test code = 5767-9) Clear Specific [place], UA (test code = 5811-5) 1.033 1.001-1.035 pH, UA (test code = 5803-2) 6.0 5.0-8.0 Protein, UA (test code = 07993-6) 30 mg/dL Negative A Glucose, UA (test code = 365) Negative Negative Ketones, UA (test code = 2514-8) Negative Negative Bilirubin, UA (test code = 30057-0) Negative Negative Blood, UA (test code = 36076-9) Small Negative A Nitrite, UA (test code = 5802-4) Negative Negative Leukocytes, UA (test code = 5799-2) Negative Negative Urobilinogen, UA (test code = 73586-5) 0.2 0.2-1.0 RBC, UA (test code = 08510-0) 51 See_Comment [Automated message] The system which [...] Occasional Squam Epithel, UA (test code = 05602-9) See_Comment [Automated message] The system which generated this result transmitted reference range: /HPF. The reference range was not used to interpret this result as normal/abnormal. Specimen Source (test code = 2795) LYNDSAY (test code = LYNDSAY) Design Assembler ID - [auto]Design Assembler ID - tech Lab Interpretation (test code = 13720-2) [facility] Culture 2023-03-30 08:43:51* Test Item Value Reference Range Interpretation Comme nts Color, UA (test code = 5778-6) Yellow Clarity, UA (test code = 5767-9) Clear Specific [place], UA (test code = 5811-5) 1.033 1.001-1.035 pH, UA (test code = 5803-2) 6.0 5.0-8.0 Protein, UA (test code = 93925-9) 30 mg/dL Negative A Glucose, UA (test code = 365) Negative Negative Ketones, UA (test code = 2514-8) Negative Negative Bilirubin, UA (test code = 84933-2) Negative Negative Blood, UA (test code = 51330-1) Small Negative A Nitrite, UA (test code = 5802-4) Negative Negative Leukocytes, UA (test code = 5799-2) Negative Negative Urobilinogen, UA (test code = 43473-5) 0.2 0.2-1.0 RBC, UA (test code = 36068-6) 51 See_Comment [Automated message] The system which [...] Occasional Squam Epithel, UA (test code = 53709-7) See_Comment [Automated message] The system which generated this result transmitted reference range: /HPF. The reference range was not used to interpret this result as normal/abnormal. Specimen Source (test code = 2795) LYNDSAY (test code = LYNDSAY) Design Assembler ID - [auto]Design Assembler ID - tech Lab Interpretation (test code = 88362-3) [facility] Reflex [facility] Culture 2023-03-30 08:43:51* Test Item Value Reference Range Interpretation Comme nts Color, UA (test code = 5778-6) Yellow Clarity, UA (test code = 5767-9) Clear Specific [place], UA (test code = 5811-5) 1.033 1.001-1.035 pH, UA (test code = 5803-2) 6.0 5.0-8.0 Protein, UA (test code = 29557-9) 30 mg/dL Negative A Glucose, UA (test code = 365) Negative Negative Ketones, UA (test code = 2514-8) Negative Negative Bilirubin, UA (test code = 71185-0) Negative Negative Blood, UA (test code = 78676-4) Small Negative A Nitrite, UA (test code = 5802-4) Negative Negative Leukocytes, UA (test code = 5799-2) Negative Negative Urobilinogen, UA (test code = 37553-4) 0.2 0.2-1.0 RBC, UA (test code = 91463-5) 51 See_Comment [Automated message] The system which [...] Occasional Squam Epithel, UA (test code = 45816-2) See_Comment [Automated message] The system which generated this result transmitted reference range: /HPF. The reference range was not used to interpret this result as normal/abnormal. Specimen Source (test code = 2795) LYNDSAY (test code = LYNDSAY) Design Assembler ID - [auto]Design Assembler ID - tech Lab Interpretation (test code = 06159-2) [facility] Reflex [facility] Culture 2023-03-30 08:43:51* Test Item Value Reference Range Interpretation Comme nts Color, UA (test code = 5778-6) Yellow Clarity, UA (test code = 5767-9) Clear Specific [place], UA (test code = 5811-5) 1.033 1.001-1.035 pH, UA (test code = 5803-2) 6.0 5.0-8.0 Protein, UA (test code = 10957-5) 30 mg/dL Negative A Glucose, UA (test code = 365) Negative Negative Ketones, UA (test code = 2514-8) Negative Negative Bilirubin, UA (test code = 29786-2) Negative Negative Blood, UA (test code = 61799-6) Small Negative A Nitrite, UA (test code = 5802-4) Negative Negative Leukocytes, UA (test code = 5799-2) Negative Negative Urobilinogen, UA (test code = 03112-5) 0.2 0.2-1.0 RBC, UA (test code = 96074-2) 51 See_Comment [Automated message] The system which [...] Occasional Squam Epithel, UA (test code = 21128-3) See_Comment [Automated message] The system which generated this result transmitted reference range: /HPF. The reference range was not used to interpret this result as normal/abnormal. Specimen Source (test code = 2795) LYNDSAY (test code = LYNDSAY) Design Assembler ID - [auto]Design Assembler ID - tech Lab Interpretation (test code = 06009-6) [facility] Reflex [facility] Culture 2023-03-30 08:43:51* Test Item Value Reference Range Interpretation Comme nts Color, UA (test code = 5778-6) Yellow Clarity, UA (test code = 5767-9) Clear Specific [place], UA (test code = 5811-5) 1.033 1.001-1.035 pH, UA (test code = 5803-2) 6.0 5.0-8.0 Protein, UA (test code = 10994-0) 30 mg/dL Negative A Glucose, UA (test code = 365) Negative Negative Ketones, UA (test code = 2514-8) Negative Negative Bilirubin, UA (test code = 00845-5) Negative Negative Blood, UA (test code = 76928-5) Small Negative A Nitrite, UA (test code = 5802-4) Negative Negative Leukocytes, UA (test code = 5799-2) Negative Negative Urobilinogen, UA (test code = 19892-6) 0.2 0.2-1.0 RBC, UA (test code = 27130-8) 51 See_Comment [Automated message] The system which [...] Occasional Squam Epithel, UA (test code = 94322-2) See_Comment [Automated message] The system which generated this result transmitted reference range: /HPF. The reference range was not used to interpret this result as normal/abnormal. Specimen Source (test code = 2795) LYNDSAY (test code = LYNDSAY) Design Assembler ID - [auto]Design Assembler ID - tech Lab Interpretation (test code = 99976-9) [facility] Culture 2023-03-30 08:43:51* Test Item Value Reference Range Interpretation Comme nts Color, UA (test code = 5778-6) Yellow Clarity, UA (test code = 5767-9) Clear Specific [place], UA (test code = 5811-5) 1.033 1.001-1.035 pH, UA (test code = 5803-2) 6.0 5.0-8.0 Protein, UA (test code = 65247-7) 30 mg/dL Negative A Glucose, UA (test code = 365) Negative Negative Ketones, UA (test code = 2514-8) Negative Negative Bilirubin, UA (test code = 70999-1) Negative Negative Blood, UA (test code = 56476-6) Small Negative A Nitrite, UA (test code = 5802-4) Negative Negative Leukocytes, UA (test code = 5799-2) Negative Negative Urobilinogen, UA (test code = 33461-0) 0.2 0.2-1.0 RBC, UA (test code = 21606-5) 51 See_Comment [Automated message] The system which [...] Occasional Squam Epithel, UA (test code = 18504-6) See_Comment [Automated message] The system which generated this result transmitted reference range: /HPF. The reference range was not used to interpret this result as normal/abnormal. Specimen Source (test code = 2795) LYNDSAY (test code = LYNDSAY) Design Assembler ID - [auto]Design Assembler ID - tech Lab Interpretation (test code = 17978-0) [facility] Culture 2023-03-30 08:43:51* Test Item Value Reference Range Interpretation Comme nts Color, UA (test code = 5778-6) Yellow Clarity, UA (test code = 5767-9) Clear Specific [place], UA (test code = 5811-5) 1.033 1.001-1.035 pH, UA (test code = 5803-2) 6.0 5.0-8.0 Protein, UA (test code = 03055-0) 30 mg/dL Negative A Glucose, UA (test code = 365) Negative Negative Ketones, UA (test code = 2514-8) Negative Negative Bilirubin, UA (test code = 03428-4) Negative Negative Blood, UA (test code = 48036-5) Small Negative A Nitrite, UA (test code = 5802-4) Negative Negative Leukocytes, UA (test code = 5799-2) Negative Negative Urobilinogen, UA (test code = 98682-7) 0.2 0.2-1.0 RBC, UA (test code = 42361-9) 51 See_Comment [Automated message] The system which [...] Occasional Squam Epithel, UA (test code = 08947-8) See_Comment [Automated message] The system which generated this result transmitted reference range: /HPF. The reference range was not used to interpret this result as normal/abnormal. Specimen Source (test code = 2795) LYNDSAY (test code = LYNDSAY) Design Assembler ID - [auto]Design Assembler ID - tech Lab Interpretation (test code = 52460-9) [facility] Ref[facility] Culture 2023-03-30 08:43:51* Test Item Value Reference Range Interpretation Comme nts Color, UA (test code = 5778-6) Yellow Clarity, UA (test code = 5767-9) Clear Specific [place], UA (test code = 5811-5) 1.033 1.001-1.035 pH, UA (test code = 5803-2) 6.0 5.0-8.0 Protein, UA (test code = 55718-6) 30 mg/dL Negative A Glucose, UA (test code = 365) Negative Negative Ketones, UA (test code = 2514-8) Negative Negative Bilirubin, UA (test code = 95764-3) Negative Negative Blood, UA (test code = 84579-2) Small Negative A Nitrite, UA (test code = 5802-4) Negative Negative Leukocytes, UA (test code = 5799-2) Negative Negative Urobilinogen, UA (test code = 09561-4) 0.2 0.2-1.0 RBC, UA (test code = 25316-6) 51 See_Comment [Automated message] The system which [...] Occasional Squam Epithel, UA (test code = 54350-1) See_Comment [Automated message] The system which generated this result transmitted reference range: /HPF. The reference range was not used to interpret this result as normal/abnormal. Specimen Source (test code = 2795) LYNDSAY (test code = LYNDSAY) Design Assembler ID - [auto]Design Assembler ID - tech Lab Interpretation (test code = 77428-1) [facility] Reflex [facility] Culture 2023-03-30 08:43:51* Test Item Value Reference Range Interpretation Comme nts Color, UA (test code = 5778-6) Yellow Clarity, UA (test code = 5767-9) Clear Specific [place], UA (test code = 5811-5) 1.033 1.001-1.035 pH, UA (test code = 5803-2) 6.0 5.0-8.0 Protein, UA (test code = 31512-3) 30 mg/dL Negative A Glucose, UA (test code = 365) Negative Negative Ketones, UA (test code = 2514-8) Negative Negative Bilirubin, UA (test code = 86536-7) Negative Negative Blood, UA (test code = 25384-0) Small Negative A Nitrite, UA (test code = 5802-4) Negative Negative Leukocytes, UA (test code = 5799-2) Negative Negative Urobilinogen, UA (test code = 84480-8) 0.2 0.2-1.0 RBC, UA (test code = 98889-5) 51 See_Comment [Automated message] The system which [...] Occasional Squam Epithel, UA (test code = 71780-0) See_Comment [Automated message] The system which generated this result transmitted reference range: /HPF. The reference range was not used to interpret this result as normal/abnormal. Specimen Source (test code = 2795) LYNDSAY (test code = LYNDSAY) Design Assembler ID - [auto]Design Assembler ID - tech Lab Interpretation (test code = 79504-7) [facility] Reflex [facility] Culture 2023-03-30 08:43:51* Test Item Value Reference Range Interpretation Comme nts Color, UA (test code = 5778-6) Yellow Clarity, UA (test code = 5767-9) Clear Specific [place], UA (test code = 5811-5) 1.033 1.001-1.035 pH, UA (test code = 5803-2) 6.0 5.0-8.0 Protein, UA (test code = 60848-2) 30 mg/dL Negative A Glucose, UA (test code = 365) Negative Negative Ketones, UA (test code = 2514-8) Negative Negative Bilirubin, UA (test code = 91135-1) Negative Negative Blood, UA (test code = 21762-9) Small Negative A Nitrite, UA (test code = 5802-4) Negative Negative Leukocytes, UA (test code = 5799-2) Negative Negative Urobilinogen, UA (test code = 78166-7) 0.2 0.2-1.0 RBC, UA (test code = 64188-5) 51 See_Comment [Automated message] The system which [...] Occasional Squam Epithel, UA (test code = 63006-7) See_Comment [Automated message] The system which generated this result transmitted reference range: /HPF. The reference range was not used to interpret this result as normal/abnormal. Specimen Source (test code = 2795) LYNDSAY (test code = LYNDSAY) Design Assembler ID - [auto]Design Assembler ID - tech Lab Interpretation (test code = 69136-7) [facility] Reflex to Culture 2023-03-30 08:43:51* Test Item Value Reference Range Interpretation Comme nts Color, UA (test code = 5778-6) Yellow Clarity, UA (test code = 5767-9) Clear Specific [place], UA (test code = 5811-5) 1.033 1.001-1.035 pH, UA (test code = 5803-2) 6.0 5.0-8.0 Protein, UA (test code = 71701-1) 30 mg/dL Negative A Glucose, UA (test code = 365) Negative Negative Ketones, UA (test code = 2514-8) Negative Negative Bilirubin, UA (test code = 91704-5) Negative Negative Blood, UA (test code = 54502-0) Small Negative A Nitrite, UA (test code = 5802-4) Negative Negative Leukocytes, UA (test code = 5799-2) Negative Negative Urobilinogen, UA (test code = 35651-3) 0.2 0.2-1.0 RBC, UA (test code = 82057-6) 51 See_Comment [Automated message] The system which [...] Occasional Squam Epithel, UA (test code = 29636-5) See_Comment [Automated message] The system which generated this result transmitted reference range: /HPF. The reference range was not used to interpret this result as normal/abnormal. Specimen Source (test code = 2795) LYNDSAY (test code = LYNDSAY) Design Assembler ID - [auto]Design Assembler ID - tech Lab Interpretation (test code = 70014-8) [facility] Reflex to Culture 2023-03-30 08:43:51* Test Item Value Reference Range Interpretation Comme nts Color, UA (test code = 5778-6) Yellow Clarity, UA (test code = 5767-9) Clear Specific [place], UA (test code = 5811-5) 1.033 1.001-1.035 pH, UA (test code = 5803-2) 6.0 5.0-8.0 Protein, UA (test code = 81589-6) 30 mg/dL Negative A Glucose, UA (test code = 365) Negative Negative Ketones, UA (test code = 2514-8) Negative Negative Bilirubin, UA (test code = 67665-6) Negative Negative Blood, UA (test code = 33422-3) Small Negative A Nitrite, UA (test code = 5802-4) Negative Negative Leukocytes, UA (test code = 5799-2) Negative Negative Urobilinogen, UA (test code = 74205-9) 0.2 0.2-1.0 RBC, UA (test code = 61554-1) 51 See_Comment [Automated message] The system which [...] Occasional Squam Epithel, UA (test code = 84877-5) See_Comment [Automated message] The system which generated this result transmitted reference range: /HPF. The reference range was not used to interpret this result as normal/abnormal. Specimen Source (test code = 2795) LYNDSAY (test code = LYNDSAY) Design Assembler ID - [auto]Design Assembler ID - tech Lab Interpretation (test code = 18799-0) [facility] Reflex [facility] Culture 2023-03-30 08:43:51* Test Item Value Reference Range Interpretation Comme nts Color, UA (test code = 5778-6) Yellow Clarity, UA (test code = 5767-9) Clear Specific [place], UA (test code = 5811-5) 1.033 1.001-1.035 pH, UA (test code = 5803-2) 6.0 5.0-8.0 Protein, UA (test code = 68821-4) 30 mg/dL Negative A Glucose, UA (test code = 365) Negative Negative Ketones, UA (test code = 2514-8) Negative Negative Bilirubin, UA (test code = 64856-2) Negative Negative Blood, UA (test code = 59309-9) Small Negative A Nitrite, UA (test code = 5802-4) Negative Negative Leukocytes, UA (test code = 5799-2) Negative Negative Urobilinogen, UA (test code = 81835-3) 0.2 0.2-1.0 RBC, UA (test code = 44521-9) 51 See_Comment [Automated message] The system which [...] Occasional Squam Epithel, UA (test code = 97611-2) See_Comment [Automated message] The system which generated this result transmitted reference range: /HPF. The reference range was not used to interpret this result as normal/abnormal. Specimen Source (test code = 2795) LYNDSAY (test code = LYNDSAY) Design Assembler ID - [auto]Design Assembler ID - tech Lab Interpretation (test code = 95648-5) [facility] Culture 2023-[facility]-30 08:43:51* Test Item Value Reference Range Interpretation Comme nts Color, UA (test code = 5778-6) Yellow Clarity, UA (test code = 5767-9) Clear Specific [place], UA (test code = 5811-5) 1.033 1.001-1.035 pH, UA (test code = 5803-2) 6.0 5.0-8.0 Protein, UA (test code = 32029-6) 30 mg/dL Negative A Glucose, UA (test code = 365) Negative Negative Ketones, UA (test code = 2514-8) Negative Negative Bilirubin, UA (test code = 49211-7) Negative Negative Blood, UA (test code = 78403-1) Small Negative A Nitrite, UA (test code = 5802-4) Negative Negative Leukocytes, UA (test code = 5799-2) Negative Negative Urobilinogen, UA (test code = 04790-4) 0.2 0.2-1.0 RBC, UA (test code = 03863-9) 51 See_Comment [Automated message] The system which [...] Occasional Squam Epithel, UA (test code = 45286-4) See_Comment [Automated message] The system which generated this result transmitted reference range: /HPF. The reference range was not used to interpret this result as normal/abnormal. Specimen Source (test code = 2795) LYNDSAY (test code = LYNDSAY) Design Assembler ID - [auto]Design Assembler ID - tech Lab Interpretation (test code = 31824-1) [facility] Reflex [facility] Culture 2023-03-30 08:43:51* Test Item Value Reference Range Interpretation Comme nts Color, UA (test code = 5778-6) Yellow Clarity, UA (test code = 5767-9) Clear Specific [place], UA (test code = 5811-5) 1.033 1.001-1.035 pH, UA (test code = 5803-2) 6.0 5.0-8.0 Protein, UA (test code = 59101-4) 30 mg/dL Negative A Glucose, UA (test code = 365) Negative Negative Ketones, UA (test code = 2514-8) Negative Negative Bilirubin, UA (test code = 60315-6) Negative Negative Blood, UA (test code = 84187-6) Small Negative A Nitrite, UA (test code = 5802-4) Negative Negative Leukocytes, UA (test code = 5799-2) Negative Negative Urobilinogen, UA (test code = 67279-8) 0.2 0.2-1.0 RBC, UA (test code = 94882-1) 51 See_Comment [Automated message] The system which [...] Occasional Squam Epithel, UA (test code = 60321-3) See_Comment [Automated message] The system which generated this result transmitted reference range: /HPF. The reference range was not used to interpret this result as normal/abnormal. Specimen Source (test code = 2795) LYNDSAY (test code = LYNDSAY) Design Assembler ID - [auto]Design Assembler ID - tech Lab Interpretation (test code = 10618-0) [facility] Reflex [facility] Culture 2023-03-30 08:43:51* Test Item Value Reference Range Interpretation Comme nts Color, UA (test code = 5778-6) Yellow Clarity, UA (test code = 5767-9) Clear Specific [place], UA (test code = 5811-5) 1.033 1.001-1.035 pH, UA (test code = 5803-2) 6.0 5.0-8.0 Protein, UA (test code = 04913-3) 30 mg/dL Negative A Glucose, UA (test code = 365) Negative Negative Ketones, UA (test code = 2514-8) Negative Negative Bilirubin, UA (test code = 58137-4) Negative Negative Blood, UA (test code = 16999-9) Small Negative A Nitrite, UA (test code = 5802-4) Negative Negative Leukocytes, UA (test code = 5799-2) Negative Negative Urobilinogen, UA (test code = 47835-5) 0.2 0.2-1.0 RBC, UA (test code = 44331-4) 51 See_Comment [Automated message] The system which [...] Occasional Squam Epithel, UA (test code = 46208-8) See_Comment [Automated message] The system which generated this result transmitted reference range: /HPF. The reference range was not used to interpret this result as normal/abnormal. Specimen Source (test code = 2795) LYNDSAY (test code = LYNDSAY) Design Assembler ID - [auto]Design Assembler ID - tech Lab Interpretation (test code = 93403-5) [facility] Reflex [facility] Culture 2023-03-30 08:43:51* Test Item Value Reference Range Interpretation Comme nts Color, UA (test code = 5778-6) Yellow Clarity, UA (test code = 5767-9) Clear Specific [place], UA (test code = 5811-5) 1.033 1.001-1.035 pH, UA (test code = 5803-2) 6.0 5.0-8.0 Protein, UA (test code = 93140-6) 30 mg/dL Negative A Glucose, UA (test code = 365) Negative Negative Ketones, UA (test code = 2514-8) Negative Negative Bilirubin, UA (test code = 06235-8) Negative Negative Blood, UA (test code = 78248-2) Small Negative A Nitrite, UA (test code = 5802-4) Negative Negative Leukocytes, UA (test code = 5799-2) Negative Negative Urobilinogen, UA (test code = 53924-6) 0.2 0.2-1.0 RBC, UA (test code = 55196-8) 51 See_Comment [Automated message] The system which [...] Occasional Squam Epithel, UA (test code = 87204-2) See_Comment [Automated message] The system which generated this result transmitted reference range: /HPF. The reference range was not used to interpret this result as normal/abnormal. Specimen Source (test code = 2795) LYNDSAY (test code = LYNDSAY) Design Assembler ID - [auto]Design Assembler ID - tech Lab Interpretation (test code = 34436-3) [facility] 2023-03-30 08:43:51* Test Item Value Reference Range Interpretation Comme nts Color, UA (test code = 5778-6) Yellow Clarity, UA (test code = 5767-9) Clear Specific [place], UA (test code = 5811-5) 1.033 1.001-1.035 pH, UA (test code = 5803-2) 6.0 5.0-8.0 Protein, UA (test code = 55943-2) 30 mg/dL Negative A Glucose, UA (test code = 365) Negative Negative Ketones, UA (test code = 2514-8) Negative Negative Bilirubin, UA (test code = 79942-9) Negative Negative Blood, UA (test code = 72245-6) Small Negative A Nitrite, UA (test code = 5802-4) Negative Negative Leukocytes, UA (test code = 5799-2) Negative Negative Urobilinogen, UA (test code = 19350-9) 0.2 0.2-1.0 RBC, UA (test code = 50330-4) 51 See_Comment [Automated message] The system which [...] Occasional Squam Epithel, UA (test code = 01387-0) See_Comment [Automated message] The system which generated this result transmitted reference range: /HPF. The reference range was not used to interpret this result as normal/abnormal. Specimen Source (test code = 2795) LYNDSAY (test code = LYNDSAY) Design Assembler ID - [auto]Design Assembler ID - tech Lab Interpretation (test code = 38072-6) [facility] Reflex [facility] Culture 2023-03-30 08:43:51* Test Item Value Reference Range Interpretation Comme nts Color, UA (test code = 5778-6) Yellow Clarity, UA (test code = 5767-9) Clear Specific [place], UA (test code = 5811-5) 1.033 1.001-1.035 pH, UA (test code = 5803-2) 6.0 5.0-8.0 Protein, UA (test code = 38316-5) 30 mg/dL Negative A Glucose, UA (test code = 365) Negative Negative Ketones, UA (test code = 2514-8) Negative Negative Bilirubin, UA (test code = 03345-7) Negative Negative Blood, UA (test code = 68559-5) Small Negative A Nitrite, UA (test code = 5802-4) Negative Negative Leukocytes, UA (test code = 5799-2) Negative Negative Urobilinogen, UA (test code = 17113-0) 0.2 0.2-1.0 RBC, UA (test code = 52621-2) 51 See_Comment [Automated message] The system which [...] Occasional Squam Epithel, UA (test code = 01547-0) See_Comment [Automated message] The system which generated this result transmitted reference range: /HPF. The reference range was not used to interpret this result as normal/abnormal. Specimen Source (test code = 2795) LYNDSAY (test code = LYNDSAY) Design Assembler ID - [auto]Design Assembler ID - tech Lab Interpretation (test code = 33384-2) [facility] Reflex [facility] Culture 2023-03-30 08:43:51* Test Item Value Reference Range Interpretation Comme nts Color, UA (test code = 5778-6) Yellow Clarity, UA (test code = 5767-9) Clear Specific [place], UA (test code = 5811-5) 1.033 1.001-1.035 pH, UA (test code = 5803-2) 6.0 5.0-8.0 Protein, UA (test code = 83678-5) 30 mg/dL Negative A Glucose, UA (test code = 365) Negative Negative Ketones, UA (test code = 2514-8) Negative Negative Bilirubin, UA (test code = 36301-7) Negative Negative Blood, UA (test code = 91808-3) Small Negative A Nitrite, UA (test code = 5802-4) Negative Negative Leukocytes, UA (test code = 5799-2) Negative Negative Urobilinogen, UA (test code = 98810-5) 0.2 0.2-1.0 RBC, UA (test code = 30892-9) 51 See_Comment [Automated message] The system which [...] Occasional Squam Epithel, UA (test code = 30491-6) See_Comment [Automated message] The system which generated this result transmitted reference range: /HPF. The reference range was not used to interpret this result as normal/abnormal. Specimen Source (test code = 2795) LYNDSAY (test code = LYNDSAY) Design Assembler ID - [auto]Design Assembler ID - tech Lab Interpretation (test code = 13575-5) [facility] 2023-[facility]-30 08:43:51* Test Item Value Reference Range Interpretation Comme nts Color, UA (test code = 5778-6) Yellow Clarity, UA (test code = 5767-9) Clear Specific [place], UA (test code = 5811-5) 1.033 1.001-1.035 pH, UA (test code = 5803-2) 6.0 5.0-8.0 Protein, UA (test code = 27047-6) 30 mg/dL Negative A Glucose, UA (test code = 365) Negative Negative Ketones, UA (test code = 2514-8) Negative Negative Bilirubin, UA (test code = 30982-0) Negative Negative Blood, UA (test code = 63573-1) Small Negative A Nitrite, UA (test code = 5802-4) Negative Negative Leukocytes, UA (test code = 5799-2) Negative Negative Urobilinogen, UA (test code = 22139-7) 0.2 0.2-1.0 RBC, UA (test code = 89199-0) 51 See_Comment [Automated message] The system which [...] Occasional Squam Epithel, UA (test code = 08625-8) See_Comment [Automated message] The system which generated this result transmitted reference range: /HPF. The reference range was not used to interpret this result as normal/abnormal. Specimen Source (test code = 2795) LYNDSAY (test code = LYNDSAY) Design Assembler ID - [auto]Design Assembler ID - tech Lab Interpretation (test code = 65011-6) [facility] Culture 2023-03-30 08:43:51* Test Item Value Reference Range Interpretation Comme nts Color, UA (test code = 5778-6) Yellow Clarity, UA (test code = 5767-9) Clear Specific [place], UA (test code = 5811-5) 1.033 1.001-1.035 pH, UA (test code = 5803-2) 6.0 5.0-8.0 Protein, UA (test code = 97224-5) 30 mg/dL Negative A Glucose, UA (test code = 365) Negative Negative Ketones, UA (test code = 2514-8) Negative Negative Bilirubin, UA (test code = 02558-5) Negative Negative Blood, UA (test code = 10871-2) Small Negative A Nitrite, UA (test code = 5802-4) Negative Negative Leukocytes, UA (test code = 5799-2) Negative Negative Urobilinogen, UA (test code = 46247-3) 0.2 0.2-1.0 RBC, UA (test code = 50721-4) 51 See_Comment [Automated message] The system which [...] Occasional Squam Epithel, UA (test code = 73826-0) See_Comment [Automated message] The system which generated this result transmitted reference range: /HPF. The reference range was not used to interpret this result as normal/abnormal. Specimen Source (test code = 2795) LYNDSAY (test code = LYNDSAY) Design Assembler ID - [auto]Design Assembler ID - tech Lab Interpretation (test code = 22866-3) [facility] Reflex [facility] Culture 2023-03-30 08:43:51* Test Item Value Reference Range Interpretation Comme nts Color, UA (test code = 5778-6) Yellow Clarity, UA (test code = 5767-9) Clear Specific [place], UA (test code = 5811-5) 1.033 1.001-1.035 pH, UA (test code = 5803-2) 6.0 5.0-8.0 Protein, UA (test code = 16779-9) 30 mg/dL Negative A Glucose, UA (test code = 365) Negative Negative Ketones, UA (test code = 2514-8) Negative Negative Bilirubin, UA (test code = 83254-8) Negative Negative Blood, UA (test code = 52796-7) Small Negative A Nitrite, UA (test code = 5802-4) Negative Negative Leukocytes, UA (test code = 5799-2) Negative Negative Urobilinogen, UA (test code = 99834-6) 0.2 0.2-1.0 RBC, UA (test code = 79550-5) 51 See_Comment [Automated message] The system which [...] Occasional Squam Epithel, UA (test code = 37730-6) See_Comment [Automated message] The system which generated this result transmitted reference range: /HPF. The reference range was not used to interpret this result as normal/abnormal. Specimen Source (test code = 2795) LYNDSAY (test code = LYNDSAY) Design Assembler ID - [auto]Design Assembler ID - tech Lab Interpretation (test code = 35982-9) [facility] Reflex [facility] Culture 2023-03-30 08:43:51* Test Item Value Reference Range Interpretation Comme nts Color, UA (test code = 5778-6) Yellow Clarity, UA (test code = 5767-9) Clear Specific [place], UA (test code = 5811-5) 1.033 1.001-1.035 pH, UA (test code = 5803-2) 6.0 5.0-8.0 Protein, UA (test code = 81367-3) 30 mg/dL Negative A Glucose, UA (test code = 365) Negative Negative Ketones, UA (test code = 2514-8) Negative Negative Bilirubin, UA (test code = 24957-8) Negative Negative Blood, UA (test code = 65441-0) Small Negative A Nitrite, UA (test code = 5802-4) Negative Negative Leukocytes, UA (test code = 5799-2) Negative Negative Urobilinogen, UA (test code = 70651-3) 0.2 0.2-1.0 RBC, UA (test code = 50383-7) 51 See_Comment [Automated message] The system which [...] Occasional Squam Epithel, UA (test code = 09163-5) See_Comment [Automated message] The system which generated this result transmitted reference range: /HPF. The reference range was not used to interpret this result as normal/abnormal. Specimen Source (test code = 2795) LYNDSAY (test code = LYNDSAY) Design Assembler ID - [auto]Design Assembler ID - tech Lab Interpretation (test code = 83289-2) [facility] Reflex to Culture 2023-03-30 08:43:51* Test Item Value Reference Range Interpretation Comme nts Color, UA (test code = 5778-6) Yellow Clarity, UA (test code = 5767-9) Clear Specific [place], UA (test code = 5811-5) 1.033 1.001-1.035 pH, UA (test code = 5803-2) 6.0 5.0-8.0 Protein, UA (test code = 14493-3) 30 mg/dL Negative A Glucose, UA (test code = 365) Negative Negative Ketones, UA (test code = 2514-8) Negative Negative Bilirubin, UA (test code = 38546-0) Negative Negative Blood, UA (test code = 80052-1) Small Negative A Nitrite, UA (test code = 5802-4) Negative Negative Leukocytes, UA (test code = 5799-2) Negative Negative Urobilinogen, UA (test code = 17639-7) 0.2 0.2-1.0 RBC, UA (test code = 05055-6) 51 See_Comment [Automated message] The system which [...] Occasional Squam Epithel, UA (test code = 73312-9) See_Comment [Automated message] The system which generated this result transmitted reference range: /HPF. The reference range was not used to interpret this result as normal/abnormal. Specimen Source (test code = 2795) LYNDSAY (test code = LYNDSAY) Design Assembler ID - [auto]Design Assembler ID - tech Lab Interpretation (test code = 05381-1) [facility] Reflex to Culture 2023-03-30 08:43:51* Test Item Value Reference Range Interpretation Comme nts Color, UA (test code = 5778-6) Yellow Clarity, UA (test code = 5767-9) Clear Specific [place], UA (test code = 5811-5) 1.033 1.001-1.035 pH, UA (test code = 5803-2) 6.0 5.0-8.0 Protein, UA (test code = 62726-7) 30 mg/dL Negative A Glucose, UA (test code = 365) Negative Negative Ketones, UA (test code = 2514-8) Negative Negative Bilirubin, UA (test code = 42446-2) Negative Negative Blood, UA (test code = 85409-1) Small Negative A Nitrite, UA (test code = 5802-4) Negative Negative Leukocytes, UA (test code = 5799-2) Negative Negative Urobilinogen, UA (test code = 79621-0) 0.2 0.2-1.0 RBC, UA (test code = 13156-8) 51 See_Comment [Automated message] The system which [...] Occasional Squam Epithel, UA (test code = 34982-5) See_Comment [Automated message] The system which generated this result transmitted reference range: /HPF. The reference range was not used to interpret this result as normal/abnormal. Specimen Source (test code = 2795) LYNDSAY (test code = LYNDSAY) Design Assembler ID - [auto]Design Assembler ID - tech Lab Interpretation (test code = 57325-5) [facility]normal [facility] Reflex to Culture 2023-03-30 08:43:51* Test Item Value Reference Range Interpretation Comme nts Color, UA (test code = 5778-6) Yellow Clarity, UA (test code = 5767-9) Clear Specific [place], UA (test code = 5811-5) 1.033 1.001-1.035 pH, UA (test code = 5803-2) 6.0 5.0-8.0 Protein, UA (test code = 39333-1) 30 mg/dL Negative A Glucose, UA (test code = 365) Negative Negative Ketones, UA (test code = 2514-8) Negative Negative Bilirubin, UA (test code = 81367-0) Negative Negative Blood, UA (test code = 66303-1) Small Negative A Nitrite, UA (test code = 5802-4) Negative Negative Leukocytes, UA (test code = 5799-2) Negative Negative Urobilinogen, UA (test code = 18326-9) 0.2 0.2-1.0 RBC, UA (test code = 50237-8) 51 See_Comment [Automated message] The system which [...] Occasional Squam Epithel, UA (test code = 08975-1) See_Comment [Automated message] The system which generated this result transmitted reference range: /HPF. The reference range was not used to interpret this result as normal/abnormal. Specimen Source (test code = 2795) LYNDSAY (test code = LYNDSAY) Design Assembler ID - [auto]Design Assembler ID - tech Lab Interpretation (test code = 53313-5) [facility] Ref[facility] Culture 2023-03-30 08:43:51* Test Item Value Reference Range Interpretation Comme nts Color, UA (test code = 5778-6) Yellow Clarity, UA (test code = 5767-9) Clear Specific [place], UA (test code = 5811-5) 1.033 1.001-1.035 pH, UA (test code = 5803-2) 6.0 5.0-8.0 Protein, UA (test code = 06024-2) 30 mg/dL Negative A Glucose, UA (test code = 365) Negative Negative Ketones, UA (test code = 2514-8) Negative Negative Bilirubin, UA (test code = 63825-4) Negative Negative Blood, UA (test code = 43485-2) Small Negative A Nitrite, UA (test code = 5802-4) Negative Negative Leukocytes, UA (test code = 5799-2) Negative Negative Urobilinogen, UA (test code = 93554-2) 0.2 0.2-1.0 RBC, UA (test code = 39962-7) 51 See_Comment [Automated message] The system which [...] Occasional Squam Epithel, UA (test code = 42617-2) See_Comment [Automated message] The system which generated this result transmitted reference range: /HPF. The reference range was not used to interpret this result as normal/abnormal. Specimen Source (test code = 2795) LYNDSAY (test code = LYNDSAY) Design Assembler ID - [auto]Design Assembler ID - tech Lab Interpretation (test code = 30774-2) [facility] Reflex [facility] Culture 2023-03-30 08:43:51* Test Item Value Reference Range Interpretation Comme nts Color, UA (test code = 5778-6) Yellow Clarity, UA (test code = 5767-9) Clear Specific [place], UA (test code = 5811-5) 1.033 1.001-1.035 pH, UA (test code = 5803-2) 6.0 5.0-8.0 Protein, UA (test code = 34778-1) 30 mg/dL Negative A Glucose, UA (test code = 365) Negative Negative Ketones, UA (test code = 2514-8) Negative Negative Bilirubin, UA (test code = 16479-9) Negative Negative Blood, UA (test code = 33529-1) Small Negative A Nitrite, UA (test code = 5802-4) Negative Negative Leukocytes, UA (test code = 5799-2) Negative Negative Urobilinogen, UA (test code = 89989-1) 0.2 0.2-1.0 RBC, UA (test code = 43559-7) 51 See_Comment [Automated message] The system which [...] Occasional Squam Epithel, UA (test code = 32248-2) See_Comment [Automated message] The system which generated this result transmitted reference range: /HPF. The reference range was not used to interpret this result as normal/abnormal. Specimen Source (test code = 2795) LYNDSAY (test code = LYNDSAY) Design Assembler ID - [auto]Design Assembler ID - tech Lab Interpretation (test code = 15189-1) [facility] [id number] 08:43:51 * Test Item Value Reference Range [...] < /HPF SOURCE(BEAKER) (test code = 2795) Design Assembler ID - [auto]Design Assembler ID - techCOMPREHENSIVE METABOLIC [id number] 04:37:29* Test Item Value Reference Range Interpretation [...] GFR is not applicable for dialysis patients Design Assembler ID - MATT BPT/KZEZ5091-62-91 04:30:17* Test Item Value Reference Range Interpretation Comme nts PROTIME (BEAKER) (test code = 759) 13.8 seconds 11.9-14.2 INR (BEAKER) (test code = 370) 1.13 See_Comment [Automated messa ge] The system which [...] code = 413) 0 /100 WBC 0-0 [id number]-[id number] 00:00:00Ordered by an unspecified provider.[facility]RWIFOCE0453-99-98 00:00:00Ordered by an unspecified provider. [facility]KG-FNLLFMG6083-56-94 00:00:00Ordered by an unspecified provider.[facility] CenterMAGNESIUM2023-05-25 17:14:06* Test Item Value Reference Range Interpretation Comme nts MAGNESIUM (test code = 5997925000) 1.9 mg/dL 1.7-2.4 Lab Interpretation (test cod e = 05546-6) [facility] (37298)2022-12-11 15:16:25* Test Item Value Reference Range Interpretation Comme nts NA (test code = 0842875470) 139 mmol/L 135-145 K (test code = 3895505636) 3.5 mmol/L 3.5-5.0 CL (test code = 9298559799) 107 mmol/L 98-108 CO2 TOTAL (test code = 3446274676) 24 mmol/L 23-31 AGAP (test code = 2944053098) 8 2-16 BUN (test code = 1248221496) 9 mg/dL 7-23 GLUCOSE (test code = 0104244743) 129 mg/dL 70-110 H CREATININE (test code = 3758092350) 0.68 mg/dL 0.50-1.04 TOTAL BILI (test code = 5073264760) 0.5 mg/dL 0.1-1.1 CALCIUM (test code = 9169881679) 8.9 mg/dL 8.6-10.6 T PROTEIN (test code = 4615032001) 6.3 g/dL 6.3-8.2 ALBUMIN (test code = 8042285084) 3.8 g/dL 3.5-5.0 ALK PHOS (test code = 4183905178) 87 U/L 34-122 ALTv (test code = 1742-6) 24 U/L 5-35 AST(SGOT) (test code = 7441738142) 21 U/L 13-40 eGFR (test code = 8141088634) 91.6 mL/min/1.73m2 LYNDSAY (test code = LYNDSAY) [...] imaging tests). Lab Interpretation (test code = 86967-7) [facility]normal [facility] CenterTROPONIN [id number] 15:10:45* Test Item Value Reference Range Interpretation Comme [facility] TROPONIN I (test code = 0149655310) 0.015 ng/mL <=0.034 LYNDSAY (test code = [...] of biotin. Lab Interpretation (test code = 13757-7) Normal [facility] CenterN-TERMINAL CBE-[id number] 15:07:48* Test Item Value Reference Range Interpretation Comme [facility] NT-proBNP (test code = 0711992438) 1460 pg/mL <=125 H LYNDSAY (test code = LYNDSAY) Biotin has been reported to cause a negative bias, interpret results relative to patient's use of biotin. Lab Interpretation (test code = 74068-2) [facility]normal [facility] CenterD-DPVRG3314-46-70 14:45:24* Test Item Value Reference Range Interpretation Comments D-DIMER (test code = 9615221131) 0.99 See_Comment H [Automated message] The system [...] a diagnosis. Lab Interpretation (test code = 16055-7) Abnormal [facility] WITH [id number] 14:14:48* Test Item Value Reference Range Interpretation Comme nts WBC (test code = 6690-2) 7.86 See_Comment [Automated [employer]] The system which generated this result transmitted reference range: 4.30 - 11.10 10*3/?L. The reference range was not used to interpret this result as normal/abnormal. RBC (test code = 789-8) 5.13 See_Comment [Automated [employer] ge] The system which generated this result [...] g/dL 31.6-35.1 L RDW-SD (test code = 58743-9) 47.8 fL 39.0-49.9 RDW-CV (test code = 788-0) 16.9 % 12.0-15.5 H PLT (test code = 777-3) 507 See_Comment H [Automated [employer] ge] The system which generated this result transmitted reference range: 166 - 358 10*3/?L. The reference range was not used to interpret this result as normal/abnormal. MPV (test code = 53003-4) 8.2 fL 9.5-12.9 L NRBC/100 WBC (test code = 0273950079) 0.0 See_Comment [Automated [employer]] The system which generated this result transmitted reference range: 0.0 - 10.0 /100 WBCs. The reference range was not used to interpret this result as normal/abnormal. NRBC x10^3 (test code = 4353910760) See_Comment [Automated messa ge] The system which generated this result transmitted reference range: 10*3/?L. The reference range was not used to interpret this result as normal/abnormal. GRAN MAT (NEUT) % (test code = 770-8) 64.5 % IMM GRAN % (test code = 0841517537) 0.30 % LYMPH % (test code = 736-9) 25.6 % MONO % (test code = 5905-5) 7.5 % EOS % (test code = 713-8) 1.0 % BASO % (test code = 706-2) 1.1 % GRAN MAT x10^3(ANC) (test code = 2064668690) 5.07 10*3/uL 1.88-7.09 IMM GRAN x10^3 (test code = 0573841345) 0.00-0.06 LYMPH x10^3 (test code = 731-0) 2.01 10*3/uL 1.32-3.29 MONO x10^3 (test code = 742-7) 0.59 10*3/uL 0.33-0.92 EOS x10^3 (test code = 711-2) 0.08 10*3/uL 0.03-0.39 BASO x10^3 (test code = 704-7) 0.09 10*3/uL 0.01-0.07 H Lab Interpretation (test code = 71585-7) [facility]normal [facility] CenterRPR[facility] 13:17:22* Test Item Value Reference Range Interpretation Comme nts RPR SCREEN ([employer]) (test co de = 420) Nonreactive Nonreactive HEMOGLOBIN [id number] 10:39:49* Test Item Value Reference Range Interpretation Comme [facility] HEMOGLOBIN A1C ELECTROPHORESIS ([employer]) (test code = 3811) 5.8 % See_Comment [...] 5.7- 6.4% indicates increased risk for diabetes (prediabetes)."Design Assembler ID - ADM VITAMIN [id number] 22:48:27* Test Item Value Reference Range Interpretation Comme nts VITAMIN B12 (BEAKER) (test c ode = 774) 227 pg/mL 213-816 Design Assembler ID - MARCOTSH/FREE T4 IF XHZSEPQRZ2524-88-30 22:08:28* Test Item Value Reference Range Interpretation Comme nts THYROID STIMULATING HORMONE (BEAKER) (test code = 772) 3.309 uIU/mL 0.350-4.940 Design Assembler ID - JSHIV-1 ANTIGEN WITH HIV-1/2 [id number] 22:08:28* Test Item Value Reference Range Interpretation Comme nts HIV-1 ANTIGEN WITH HIV 1\\T\\2 ANTIBODY (2) (BEAKER) (test code = 2586) Nonreactive Nonreactive Design Assembler ID - JSC-REACTIVE QMINMDI0274-75-47 21:49:44* Test Item Value Reference Range Interpretation Comme nts C-REACTIVE PROTEIN (BEAKER) (test code = 676) 0.35 mg/dL 0.00-0.50 Design Assembler ID - JSCOMPREHENSIVE METABOLIC [id number] 21:49:43* Test Item Value Reference Range Interpretation [...] GFR is not applicable for dialysis patients Design Assembler ID - JSLIPID [id number] 21:49:43* Test Item Value Reference Range Interpretation [...] Borderline 130-159 High 160-189 Very High >=190 Design Assembler ID - JSCBC W/PLT COUNT & AUTO [id number] 21:34:03* Test Item Value Reference Range Interpretation [...] Interpretation Comme nts Height (test code = 2596467891) in Weight (test code = 8296917086) lbs Systolic BP (test code = 3083624004) mmHg Diastolic BP (test code = 1526945236) mmHg Heart Rate (test code = 0870705326) bpm BSA (test code = 4882551799) 2.00 m2 Ao root diam (test code = 9360609391) 3.20 cm Aortic root (test code = 7280006241) 3.2 cm Ao root annulus (test code = 3108987610) 3.2 cm LVOT diameter (test code = 5360102231) 1.99 cm LVOT area (test code = 6139134870) 3.10 cm2 LVIDD (test code = 2428751775) 5.10 cm Left Ventricular End Diastolic Volume by Teichholz Method (test code = 0034669) 123.0 mL IVS (test code = 4327361604) 1.34 cm Interventricular Septum Diastolic Thickness by 2D (test code = 4877405) 1.34 cm LVPWD (test code = 1842017891) 1.34 cm PW (test code = 2420201013) 1.34 cm 0.6-1.1 EF(Teich) (test code = 6175345749) 41.80 % LVIDS (test code = 1623644490) 4.00 cm Left Ventricular End Systolic Volume by Teichholz Method (test code = 0725654) 71.5 mL FS (test code = 9465220291) 21 % EF - 2D (test code = 11835655) 41.80 % LA size (test code = 7593281147) 4.6 cm Pulmonic Regurgitant End Max Velocity (test code = 5384839987) 119.4 cm/s LAV(MOD-sp4) (test code = 6264833725) 95.00 mL E wave decelartion time (test code = 5769578670) 0.15 s MV stenosis pressure 1/2 time (test code = 6198668477) 45.6 ms MV Peak A Evette (test code = 3461157111) 123.8 cm/s MV Peak E Evette (test code = 2717034412) 109.7 cm/s E/A ratio (test code = 8294276247) ratio MR max PG (test code = 2628888319) 87.20 mm[Hg] MR max evette (test code = 8074523532) 466.90 cm/s Mr max evette (test code = 4809752071) 466.9 m/s MV Prop V (test code = 4480336094) 51.00 cm/s MV E/e' septal (test code = 0293743580) 8.1 cm/s Tapse (test code = 3909724296) 2.21 cm LVOT stroke volume (test code = 7228786809) 49.80 cm3 LVOT peak evette (test code = 2154850951) 89.1 cm/s LVOT mn grad (test code = 5050180023) mmHg AV LVOT peak gradient (test code = 4174768106) mmHg LVOT peak VTI (test code = 9734769002) 16.0 cm LV V1 mean (test code = 9624349737) 64.30 cm/s Aortic valve mean velocity (test code = 6993955960) 133.8 cm/s Ao peak evette (test code = 4186337591) 175.3 cm/s Ao VTI (test code = 8662130193) 32.2 cm AV area by cont VTI (test code = 5467145455) 1.6 cm2 AV area peak evette (test code = 1667947791) 1.6 cm2 Ao max PG (test code = 9494752970) 12.30 mm[Hg] AV peak gradient (test code = 8029933122) mmHg AV valve area (test code = 5286169826) 1.55 cm2 AV mean gradient (test code = 9186923790) mmHg AV regurgitation pressure 1/2 time (test code = 1051708311) 358.5 ms AI dec slope (test code = 4538013804) 364.20 cm/s2 AI max evette (test code = 6093503143) 445.80 cm/s AI max PG (test code = 4791418903) 79.50 mm[Hg] Radiology Study observation (narrative) (test code = 65932-8) LYNDSAY (test code = LYNDSAY) ?Left?Ventricle: Left [...] mL of Lumason ultrasound enhancing agent [facility]. [facility] 10:43:32* Test Item Value Reference Range Interpretation [facility] POCT GLU (test code = 9004949633) 148 mg/dL 70-110 H Lab Interpretation (test cod e = 03470-7) Abnormal [facility] CenterACTIV[facility] PARTIAL THRMPLAS [id number] 18:39:45* Test Item Value Reference Range Interpretation [facility] APTT Patient (test code = 3173-2) See_Comment [Automated message] The system which generated this result transmitted reference range: 23 - 38 Seconds. The reference range was not used to interpret this result as normal/abnormal. LYNDSAY (test code = LYNDSAY) The [facility] patient population mean normal value for aPTT is 30 seconds. Lab Interpretation (test code = 57363-1) Normal [facility] CenterPROT[facility]BIN TIME / [id number] 18:37:42* Test Item Value Reference Range Interpretation [facility] PROTIME PATIENT (test code = 5964-2) See_Comment [Automated Myntra] The system which generated this result transmitted reference range: 12.0 - 14.7 Seconds. The reference range was not used to interpret this result as normal/abnormal. INR (test code = 6301-6) Normal INR <1.1; Warfarin Therapeutic range 2.0 to 3.0 or 2.5 to 3.5, depending upon the indications. Lab Interpretation (test code = 13291-3) Normal [facility] CenterTROP[facility] [id number] 18:32:01* Test Item Value Reference Range Interpretation Comments TROPONIN I (test code = 8101942560) 0.019 ng/mL See_Comment [Automated message] The system [...] of biotin. Lab Interpretation (test code = 98664-2) Normal [facility] CenterN-TERMINAL [id number] 18:29:01* Test Item Value Reference Range Interpretation Comme nts NT-proBNP (test code = 2114021771) 2770 pg/mL See_Comment H [Automated message] The system which generated this result transmitted reference range: <=125. The reference range was not used to interpret this result as normal/abnormal. LYNDSAY (test code = LYNDSAY) Biotin has been reported to cause a negative bias, interpret results relative to patient's use of biotin. Lab Interpretation (test code = 78891-2) [facility]normal [facility] CenterCOMP. METABOLIC PANEL (77759)2022-07-31 18:21:42* Test Item Value Reference Range Interpretation Comme nts NA (test code = 7897119923) 136 mmol/L 135-145 K (test code = 0073001819) 4.6 mmol/L 3.5-5.0 CL (test code = 7700035662) 104 mmol/L 98-108 CO2 TOTAL (test code = 6253928613) 26 mmol/L 23-31 AGAP (test code = 1754056724) 2-16 BUN (test code = 1274634758) 9 mg/dL 7-23 GLUCOSE (test code = 8889858455) 97 mg/dL 70-110 CREATININE (test code = 4258397105) 0.64 mg/dL 0.50-1.04 TOTAL BILI (test code = 3604358688) 0.5 mg/dL 0.1-1.1 CALCIUM (test code = 1987470047) 8.2 mg/dL 8.6-10.6 L T PROTEIN (test code = 3075058092) 6.5 g/dL 6.3-8.2 ALBUMIN (test code = 4390146432) 3.9 g/dL 3.5-5.0 ALK PHOS (test code = 8234957390) 93 U/L 34-122 ALTv (test code = 1742-6) 18 U/L 5-35 AST(SGOT) (test code = 1113001641) 19 U/L 13-40 eGFR (test code = 7343243267) mL/min/1.73m2 LYNDSAY (test code = LYNDSAY) Association [...] imaging tests). Lab Interpretation (test code = 06381-9) [facility]normal [facility] CenterLIPASE2023-01-[facility] 18:21:01* Test Item Value Reference Range Interpretation Comme nts LIPASE (test code = 8284871725) 54 U/L 0-220 Lab Interpretation (test cod e = 08649-9) Normal [facility] WITH [id number] 18:07:00* Test Item Value Reference Range Interpretation Comme nts WBC (test code = 6690-2) See_Comment [Automated Myntra] The system which generated this result transmitted reference range: 4.30 - 11.10 10*3/?L. The reference range was not used to interpret this result as normal/abnormal. RBC (test code = 789-8) See_Comment [Automated Myntra] The system which generated this result transmitted [...] g/dL 31.6-35.1 L RDW-SD (test code = 05008-4) 53.1 fL 39.0-49.9 H RDW-CV (test code = 788-0) 17.0 % 12.0-15.5 H PLT (test code = 777-3) See_Comment H [Automated messa ge] The system which generated this result transmitted reference range: 166 - 358 10*3/?L. The reference range was not used to interpret this result as normal/abnormal. MPV (test code = 58383-1) 8.2 fL 9.5-12.9 L NRBC/100 WBC (test code = 3938105781) See_Comment [Automated me ssage] The system which generated this result transmitted reference range: 0.0 - 10.0 /100 WBCs. The reference range was not used to interpret this result as normal/abnormal. NRBC x10^3 (test code = 4180818749) See_Comment [Automated messa ge] The system which generated this result transmitted reference range: 10*3/?L. The reference range was not used to interpret this result as normal/abnormal. GRAN MAT (NEUT) % (test code = 770-8) 64.0 % IMM GRAN % (test code = 3224135605) 0.40 % LYMPH % (test code = 736-9) 27.3 % MONO % (test code = 5905-5) 6.5 % EOS % (test code = 713-8) 1.1 % BASO % (test code = 706-2) 0.7 % GRAN MAT x10^3(ANC) (test code = 8555555702) 5.46 10*3/uL 1.88-7.09 IMM GRAN x10^3 (test code = 8068458097) 0.03 10*3/uL 0.00-0.06 LYMPH x10^3 (test code = 731-0) 2.32 10*3/uL 1.32-3.29 MONO x10^3 (test code = 742-7) 0.55 10*3/uL 0.33-0.92 EOS x10^3 (test code = 711-2) 0.09 10*3/uL 0.03-0.39 BASO x10^3 (test code = 704-7) 0.06 10*3/uL 0.01-0.07 Lab Interpretation (test code = 71445-3) Abnormal [facility] METABOLIC PANEL (NA, K, CL, CO2, GLUCOSE, BUN, CREATININE, CA)2022-05-08 06:37:01* Test Item Value Reference Range Interpretation Comme nts NA (test code = 7426278963) 137 mmol/L 135-145 K (test code = 2181432101) 3.8 mmol/L 3.5-5 CL (test code = 9747743047) 103 mmol/L 98-108 CO2 TOTAL (test code = 4234375058) 24 mmol/L 23-31 AGAP (test code = 0538007487) 2-16 BUN (test code = 3322219761) 13 mg/dL 7-23 GLUCOSE (test code = 5260704217) 90 mg/dL 70-110 CREATININE (test code = 6564939651) 0.69 mg/dL 0.5-1.04 CALCIUM (test code = 7553895314) 8.5 mg/dL 8.6-10.6 L eGFR (test code = 6952324399) mL/min/1.73m2 LYNDSAY (test code = LYNDSAY) Association [...] imaging tests). Lab Interpretation (test code = 85722-8) Abnormal [facility] CenterMAGNESIUM2022-10-20 06:37:01* Test Item Value Reference Range Interpretation Comme nts MAGNESIUM (test code = 4801491506) 2.1 mg/dL 1.7-2.4 Lab Interpretation (test cod e = 56436-3) Normal [facility] CenterPHOSPHORUS2022-10-20 06:37:01* Test Item Value Reference Range Interpretation Comme nts PHOSPHORUS (test code = 0362503484) 4.7 mg/dL 2.5-5 Lab Interpretation (test cod e = 59839-2) Normal [facility] CenterCB WITH [id number] 06:11:54* Test Item Value Reference Range Interpretation [...] 32.4 g/dL 31.6-35.1 RDW-SD (test code = 29001-5) 51.0 fL 39-49.9 H RDW-CV (test code = 788-0) 16.5 % 12-15.5 H PLT (test code = 777-3) See_Comment H [Automated messa ge] The system which generated this result transmitted reference range: 166 - 358 10*3/?L. The reference range was not used to interpret this result as normal/abnormal. MPV (test code = 86189-2) 8.3 fL 9.5-12.9 L NRBC/100 WBC (test code = 8513341444) See_Comment [Automated me ssage] The system which generated this result transmitted reference range: 0.0 - 10.0 /100 WBCs. The reference range was not used to interpret this result as normal/abnormal. NRBC x10^3 (test code = 7294099775) See_Comment [Automated messa ge] The system which generated this result transmitted reference range: 10*3/?L. The reference range was not used to interpret this result as normal/abnormal. GRAN MAT (NEUT) % (test code = 770-8) 64.5 % IMM GRAN % (test code = 7770709032) 0.50 % LYMPH % (test code = 736-9) 27.1 % MONO % (test code = 5905-5) 6.6 % EOS % (test code = 713-8) 0.6 % BASO % (test code = 706-2) 0.7 % GRAN MAT x10^3(ANC) (test code = 2329718467) 5.28 10*3/uL 1.88-7.09 IMM GRAN x10^3 (test code = 8529975938) 0.04 10*3/uL 0-0.06 LYMPH x10^3 (test code = 731-0) 2.22 10*3/uL 1.32-3.29 MONO x10^3 (test code = 742-7) 0.54 10*3/uL 0.33-0.92 EOS x10^3 (test code = 711-2) 0.05 10*3/uL 0.03-0.39 BASO x10^3 (test code = 704-7) 0.06 10*3/uL 0.01-0.07 Lab Interpretation (test code = 50136-5) Abnormal [facility] GLUCOSE (AUTOMATED)2022-05-07 01:18:10* Test Item Value Reference Range Interpretation Comme nts POCT GLU (test code = 4570045485) 120 mg/dL 70-110 H Lab Interpretation (test cod e = 53427-6) Abnormal [facility] CenterType and Screen - ONCE [id number] 05:46:35* Test Item Value Reference Range Interpretation Comme nts ABO & RH (test code = 20) O POSITIVE Performed at [facility] Laboratory Services - [facility] Blood [place] [id number] Free: [phone] No. [id number] IAT (test code = 1185) Negative Performed at [facility] Laboratory Services [facility] Blood [place] [id number] Free: [phone] No. [id number] [facility] CenterBASI METABOLIC PAN[facility] (NA, K, CL, CO2, GLUCOSE, BUN, CREATININE, CA)2022-05-05 08:22:57* Test Item Value Reference Range Interpretation Comme nts NA (test code = 5916593619) 136 mmol/L 135-145 K (test code = 1692571094) 4.9 mmol/L 3.5-5 CL (test code = 8793711378) 108 mmol/L 98-108 CO2 TOTAL (test code = 9468503541) 22 mmol/L 23-31 L AGAP (test code = 8760383141) 2-16 BUN (test code = 1585220639) 12 mg/dL 7-23 GLUCOSE (test code = 8302891091) 155 mg/dL 70-110 H CREATININE (test code = 5559167161) 0.63 mg/dL 0.5-1.04 CALCIUM (test code = 6796719512) 8.4 mg/dL 8.6-10.6 L eGFR (test code = 0859023099) mL/min/1.73m2 LYNDSAY (test code = LYNDSAY) Association [...] imaging tests). Lab Interpretation (test code = 22741-7) Abnormal [facility] CenterPROTHROMBIN TIME / [id number] 08:22:37* Test Item Value Reference Range Interpretation Comme [facility] PROTIME PATIENT (test code = 5964-2) See_Comment [Automated Myntra] The system which generated this result transmitted reference range: 10.1 - 12.6 Seconds. The reference range was not used to interpret this result as normal/abnormal. INR (test code = 6301-6) Normal INR <1.1; Warfarin Therapeutic range 2.0 to 3.0 or 2.5 to 3.5, depending upon the indications. Lab Interpretation (test code = 72415-1) Normal [facility] CenteraPTT2022-10-17 08:22:37* Test Item Value Reference Range Interpretation Comme [facility] APTT Patient (test code = 3173-2) See_Comment [RigUp] The system which generated this result transmitted reference range: 26 - 36 Seconds. The reference range was not used to interpret this result as normal/abnormal. Lab Interpretation (test code = 66868-4) Normal [facility] CenterFIBRINOGEN2022-10-17 08:22:37* Test Item Value Reference Range Interpretation Comme [facility] Fibrinogen (test code = 5048732429) 294 mg/dL 167-453 Lab Interpretation (test cod e = 07612-0) Normal [facility] WITH [id number] 08:15:01* Test Item Value Reference Range Interpretation [...] g/dL 31.6-35.1 L RDW-SD (test code = 92655-8) 52.9 fL 39-49.9 H RDW-CV (test code = 788-0) 16.8 % 12-15.5 H PLT (test code = 777-3) See_Comment H [Automated messa ge] The system which generated this result transmitted reference range: 166 - 358 10*3/?L. The reference range was not used to interpret this result as normal/abnormal. MPV (test code = 14290-9) 8.3 fL 9.5-12.9 L NRBC/100 WBC (test code = 8004229917) See_Comment [Automated [employer] ssage] The system which generated this result transmitted reference range: 0.0 - 10.0 /100 WBCs. The reference range was not used to interpret this result as normal/abnormal. NRBC x10^3 (test code = 8301671560) See_Comment [Automated messa ge] The system which generated this result transmitted reference range: 10*3/?L. The reference range was not used to interpret this result as normal/abnormal. GRAN MAT (NEUT) % (test code = 770-8) 86.4 % IMM GRAN % (test code = 5724850407) 0.40 % LYMPH % (test code = 736-9) 11.7 % MONO % (test code = 5905-5) 1.1 % EOS % (test code = 713-8) 0.0 % BASO % (test code = 706-2) 0.4 % GRAN MAT x10^3(ANC) (test code = 4320426487) 6.36 10*3/uL 1.88-7.09 IMM GRAN x10^3 (test code = 6445552576) 0.03 10*3/uL 0-0.06 LYMPH x10^3 (test code = 731-0) 0.86 10*3/uL 1.32-3.29 L MONO x10^3 (test code = 742-7) 0.08 10*3/uL 0.33-0.92 L EOS x10^3 (test code = 711-2) 0.03-0.39 L BASO x10^3 (test code = 704-7) 0.03 10*3/uL 0.01-0.07 Lab Interpretation (test code = 82566-7) Abnormal [facility] CenterVITAMIN D, [id number] 20:14:03* Test Item Value Reference Range Interpretation Comme nts VIT D 25OH (test code = 39103-7) 22 ng/mL 25-80 L LYNDSAY (test code = LYNDSAY) Deficiency: <20 ng/mLInsufficiency: 20-24 ng/mLOptimal: 25-80 ng/mL Lab Interpretation (test code = 62308-5) Abnormal [facility] CenterBASI METABOLIC PANEL (NA, K, CL, CO2, GLUCOSE, BUN, CREATININE, CA)2022-04-15 11:27:57* Test Item Value Reference Range Interpretation Comme nts NA (test code = 4670506054) 138 mmol/L 135-145 K (test code = 5069047102) 3.9 mmol/L 3.5-5 CL (test code = 2024509207) 106 mmol/L 98-108 CO2 TOTAL (test code = 4132745488) 23 mmol/L 23-31 AGAP (test code = 6946323921) 2-16 BUN (test code = 1264817221) 10 mg/dL 7-23 GLUCOSE (test code = 8487799431) 91 mg/dL 70-110 CREATININE (test code = 8776649674) 0.65 mg/dL 0.5-1.04 CALCIUM (test code = 6117625498) 8.1 mg/dL 8.6-10.6 L eGFR (test code = 0570632600) mL/min/1.73m2 LYNDSAY (test code = LYNDSAY) Association [...] imaging tests). Lab Interpretation (test code = 44061-8) Abnormal [facility] - Transthoracic echo (TTE) 2022-04-14 22:07:33* Test Item Value Reference Range Interpretation Comme nts Height (test code = 9084409454) in Weight (test code = 9143987613) lbs Systolic BP (test code = 6826391449) mmHg Diastolic BP (test code = 5302630913) mmHg Heart Rate (test code = 8888101524) bpm BSA (test code = 0780043745) 1.94 m2 TASV (test code = 9527173767) 15.5 cm/s LVIDD (test code = 8450539572) 6.00 cm Left Ventricular End Diastolic Volume by Teichholz Method (test code = 2820914) 183.0 mL IVS (test code = 2928868593) 1.09 cm Interventricular Septum Diastolic Thickness by 2D (test code = 5287495) 1.09 cm LVPWD (test code = 5993336182) 0.94 cm PW (test code = 0299729044) 0.94 cm 0.6-1.1 EF(Teich) (test code = 5418399157) 40.30 % LVIDS (test code = 5431417802) 4.80 cm Left Ventricular End Systolic Volume by Teichholz Method (test code = 5977662) 109.2 mL FS (test code = 2465377603) 20 % EF - 2D (test code = 44896808) 40.30 % LVOT diameter (test code = 2439732832) 2.05 cm LVOT area (test code = 0935435758) 3.30 cm2 Ao root diam (test code = 6755804760) 3.10 cm Aortic root (test code = 2529515328) 3.1 cm Ao root annulus (test code = 5791841818) 3.1 cm LA size (test code = 4556060367) 4.2 cm LAV(MOD-sp4) (test code = 5503649252) 64.90 mL MV Peak A Evette (test code = 9366483860) 115.7 cm/s E wave decelartion time (test code = 2498545114) 0.15 s MV Peak E Evette (test code = 5337611501) 106.2 cm/s E/A ratio (test code = 0592747354) ratio LVOT stroke volume (test code = 1191820204) 48.30 cm3 LVOT peak evette (test code = 5500196855) 78.4 cm/s LVOT mn grad (test code = 0650547765) mmHg AV LVOT peak gradient (test code = 3609364403) mmHg LVOT peak VTI (test code = 1297015936) 14.7 cm LV V1 mean (test code = 6245472400) 51.40 cm/s Ao peak evette (test code = 0824630917) 154.7 cm/s AV area peak evette (test code = 0841362480) 1.7 cm2 Ao max PG (test code = 8832713982) 9.60 mm[Hg] AV peak gradient (test code = 3519555020) mmHg AV regurgitation pressure 1/2 time (test code = 0683077784) 257.3 ms AI dec slope (test code = 8918590105) 498.10 cm/s2 AI max evette (test code = 9848093625) 437.60 cm/s AI max PG (test code = 2596583590) 77.80 mm[Hg] Tapse (test code = 8155016938) 2.19 cm LA Volume Index (BP) (test code = 1651478563) 32.0 mL/m2 LA volume (BP) (test code = 0008483197) 62.1 mL LAV(MOD-sp2) (test code = 6274038667) 52.70 mL A4C EF (test code = 8545766366) 44.80 % EF(sp4-el) (test code = 5567916218) 45.20 % SV(MOD-sp4) (test code = 7607455159) 71.20 mL SV(sp4-el) (test code = 3251970225) 73.90 mL LV Diastolic Volume (BP) (test code = 0720069152) 146.3 mL A2C EF (test code = 4569586933) 52.00 % EF(MOD-bp) (test code = 7203645465) 46.70 % EF(sp2-el) (test code = 7105250581) 52.40 % LV Systolic Volume (BP) (test code = 2162405514) 77.9 mL SV(MOD-bp) (test code = 6543322671) 68.40 mL SV(MOD-sp2) (test code = 5517342095) 69.20 mL EF (test code = 0216399009) Left Ventricular Stroke Volume by 2-D Biplane-MOD (test code = 0927192) 68.4 mL Radiology Study observation (narrative) (test code = 39091-6) LYNDSAY (test code = LYNDSAY) ?Left?Ventricle: Left [...] agent used and saline contrast was performed. [facility] CenterKEPPRA (LEVETIRACETAM)2022-04-14 16:48:36* Test Item Value Reference Range Interpretation Comme nts KEJUNAIDRA (test code = 0680774723) 12-46 L LYNDSAY (test code = LYNDSAY) Therapeutic range: 12-46 ?g/mL ? ?Toxic: Not well established.Test developed and characteristics determined by [facility] Laboratory Services. Lab Interpretation (test code = 41066-8) Abnormal [facility] Metabolic Panel (Na, K, Cl, CO2, Glucose, BUN, Creatinine, Ca)2022-04-14 10:50:11* Test Item Value Reference Range Interpretation Comme nts NA (test code = 8813107468) 136 mmol/L 135-145 K (test code = 8800969149) 3.8 mmol/L 3.5-5 CL (test code = 6636964214) 105 mmol/L 98-108 CO2 TOTAL (test code = 5198555813) 25 mmol/L 23-31 AGAP (test code = 7022241897) 2-16 BUN (test code = 3013364993) 9 mg/dL 7-23 GLUCOSE (test code = 8957234672) 101 mg/dL 70-110 CREATININE (test code = 4079024592) 0.66 mg/dL 0.5-1.04 CALCIUM (test code = 5087162648) 8.1 mg/dL 8.6-10.6 L eGFR (test code = 7892359484) mL/min/1.73m2 LYNDSAY (test code = LYNDSAY) Association [...] imaging tests). Lab Interpretation (test code = 31767-2) Abnormal [facility] CenterMagensium, [id number] 10:50:11* Test Item Value Reference Range Interpretation Comme nts MAGNESIUM (test code = 1884006968) 1.9 mg/dL 1.7-2.4 Lab Interpretation (test cod e = 38136-3) Normal [facility] CenterThyroid Stimulating [id number] 22:21:44 * Test Item Value Reference Range Interpretation Comme nts TSH (test code = 9951498249) See_Comment Biotin has been reported to cause a negative bias, interpret results relative to patient's use of biotin. [Automated message] The system which generated this result transmitted reference range: 0.45 - 4.70 mIU/L. The reference range was not used to interpret this result as normal/abnormal. Lab Interpretation (test code = 13383-4) Normal [facility] CenterGLYCOSYLATED HEMOGLOBIN (A1C)2022-04-13 21:53:43* Test Item Value Reference Range Interpretation Comme nts HGB A1C (test code = 4548-4) 5.8 % 4-5.7 H LYNDSAY (test code = LYNDSAY) Reference RangesNormal: <5.7%Prediabetes: 5.7 - 6.4%Diabetes: > 6.5% Lab Interpretation (test code = 23151-2) Abnormal [facility] CenterFASTING LIPID PANEL (10944)(TOTAL CHOLESTEROL, TRIGLYCERIDES, HDL)2022-04-13 21:34:53* Test Item Value Reference Range Interpretation Comme nts CHOL (test code = 4313589231) 201 mg/dL 120-200 H HDL (test code = 6413653488) 56 mg/dL See_Comment [Automated Myntra] The system which generated this result transmitted reference range: >=50. The reference range was not used to interpret this result as normal/abnormal. HDLC RATIO (test code = 0944580670) See_Comment [Automated Myntra] The system which generated this result transmitted reference range: <=4.5. The reference range was not used to interpret this result as normal/abnormal. TRIG (test code = 0481036816) 355 mg/dL 30-170 H LDL CHOL (test code = 65472-8) 74 mg/dL See_Comment [Automated Myntra] The system which generated this result transmitted reference range: <=160. The reference range was not used to interpret this result as normal/abnormal. VLDL (test code = 9841974561) 71 mg/dL 5-60 H Lab Interpretation (test code = 58288-3) Abnormal [facility] CenterTroponin I - Code Ynfovj6651-17-86 18:46:27* Test Item Value Reference Range Interpretation Comments TROPONIN I (test code = 4498479066) 0.013 ng/mL See_Comment [Automated message] The system [...] of biotin. Lab Interpretation (test code = 37835-8) Normal [facility] (NA, K, CL, CO2, Glucose, BUN, Creatinine, CA) - Code Xagjmr2514-48-51 18:35:07* Test Item Value Reference Range Interpretation Comme nts NA (test code = 2114787208) 136 mmol/L 135-145 K (test code = 9530140608) 4.3 mmol/L 3.5-5 CL (test code = 9011866382) 105 mmol/L 98-108 CO2 TOTAL (test code = 2013970252) 27 mmol/L 23-31 AGAP (test code = 0882812562) 2-16 BUN (test code = 3055361419) 8 mg/dL 7-23 GLUCOSE (test code = 8838069480) 130 mg/dL 70-110 H CREATININE (test code = 6617107438) 0.75 mg/dL 0.5-1.04 CALCIUM (test code = 2866185760) 8.5 mg/dL 8.6-10.6 L eGFR (test code = 2230307189) mL/min/1.73m2 LYNDSAY (test code = LYNDSAY) Association [...] imaging tests). Lab Interpretation (test code = 51246-9) Abnormal [facility] CenteraPTT - Code Pymozw3491-91-76 18:32:46* Test Item Value Reference Range Interpretation Comme nts APTT Patient (test code = 3173-2) See_Comment [Automated message] The system which generated this result transmitted reference range: 23 - 38 Seconds. The reference range was not used to interpret this result as normal/abnormal. LYNDSAY (test code = LYNDSAY) The [facility] patient population mean normal value for aPTT is 30 seconds. Lab Interpretation (test code = 75540-3) Normal [facility] CenterProthrombin Time / INR - Code Zgqjaa1898-80-62 18:30:45* Test Item Value Reference Range Interpretation [...] the indications. Lab Interpretation (test code = 98785-3) Normal [facility] CenterCBC without Diff - Code Kbexhr8926-85-32 18:23:07* Test Item Value Reference Range Interpretation [...] result as normal/abnormal. MPV (test code = 06788-6) 8.1 fL 9.5-12.9 L RDW-CV (test code = 788-0) 16.1 % 12-15.5 H RDW-SD (test code = 92420-2) 49.2 fL 39-49.9 NRBC x10^3 (test code = 1813651394) See_Comment [Automated [employer] ge] The system which generated this result transmitted reference range: 10*3/?L. The reference range was not used to interpret this result as normal/abnormal. NRBC/100 WBC (test code = 9627926945) See_Comment [Automated [employer] ge] The system which generated this result transmitted reference range: 0.0 - 10.0 /100 WBCs. The reference range was not used to interpret this result as normal/abnormal. IPF % (test code = 5226355525) Lab Interpretation (test code = 46193-0) [id number] 21:06:40* Test Item Value Reference Range Interpretation Comments TROPONIN I (test code = 9718204493) 0.005 ng/mL See_Comment [Automated message] The system [...] of biotin. Lab Interpretation (test code = 73342-6) [facility] PANEL (63170)2021-11-23 20:55:42* Test Item Value Reference Range Interpretation Comme nts NA (test code = 0335396245) 137 mmol/L 135-145 K (test code = 1493676379) 4.3 mmol/L 3.5-5.0 CL (test code = 0414830088) 104 mmol/L 98-108 CO2 TOTAL (test code = 9447548154) 22 mmol/L 23-31 L AGAP (test code = 7373583943) 2-16 BUN (test code = 1824587740) 15 mg/dL 7-23 GLUCOSE (test code = 5204048594) 114 mg/dL 70-110 H CREATININE (test code = 8763324959) 0.68 mg/dL 0.50-1.04 TOTAL BILI (test code = 4387894897) 0.5 mg/dL 0.1-1.1 CALCIUM (test code = 4908935233) 9.1 mg/dL 8.6-10.6 T PROTEIN (test code = 8703686437) 7.3 g/dL 6.3-8.2 ALBUMIN (test code = 4095944717) 4.4 g/dL 3.5-5.0 ALK PHOS (test code = 6166955580) 243 U/L 34-122 H ALTv (test code = 1742-6) 24 U/L 5-35 AST(SGOT) (test code = 0582349240) 30 U/L 13-40 eGFR (test code = 2562232062) mL/min/1.73m2 LYNDSAY (test code = LYNDSAY) Association [...] imaging tests). Lab Interpretation (test code = 65615-2) [facility]* Test Item Value Reference Range Interpretation Comme nts LIPASE (test code = 6905636327) 96 U/L 0-220 Lab Interpretation (test cod e = 40263-4) [facility] [id number] 20:46:00* Test Item Value Reference Range Interpretation Comme nts POCT PREG (test code = 1605) negative On board controls acceptable with C Line (test code = 3574) present POCT PREG LOT # (test code = 3575) [id number] POCT PREG TEST DATE ( test code = 3576) 04/18/2023 Lab Interpretation (test cod e = 61876-9) [facility] [id number] 20:40:38* Test Item Value Reference Range Interpretation Comme nts WBC (test code = 6690-2) See_Comment [Automated Myntra] The system which generated this result transmitted reference range: 4.30 - 11.10 10*3/?L. The reference range was not used to interpret this result as normal/abnormal. RBC (test code = 789-8) See_Comment [Automated Myntra] The system which generated this result transmitted [...] 31.8 g/dL 31.6-35.1 RDW-SD (test code = 34778-5) 53.7 fL 39.0-49.9 H RDW-CV (test code = 788-0) 17.2 % 12.0-15.5 H PLT (test code = 777-3) See_Comment H [Automated messa ge] The system which generated this result transmitted reference range: 166 - 358 10*3/?L. The reference range was not used to interpret this result as normal/abnormal. MPV (test code = 92361-9) 8.5 fL 9.5-12.9 L NRBC/100 WBC (test code = 5880652989) See_Comment [Automated me ssage] The system which generated this result transmitted reference range: 0.0 - 10.0 /100 WBCs. The reference range was not used to interpret this result as normal/abnormal. NRBC x10^3 (test code = 3665187900) <0.01 See_Comment [Automated messa ge] The system which generated this result transmitted reference range: 10*3/?L. The reference range was not used to interpret this result as normal/abnormal. GRAN MAT (NEUT) % (test code = 770-8) 53.7 % IMM GRAN % (test code = 1996412895) 0.90 % LYMPH % (test code = 736-9) 32.6 % MONO % (test code = 5905-5) 10.1 % EOS % (test code = 713-8) 1.5 % BASO % (test code = 706-2) 1.2 % GRAN MAT x10^3(ANC) (test code = 8526409358) 4.98 10*3/uL 1.88-7.09 IMM GRAN x10^3 (test code = 1301624715) 0.08 10*3/uL 0.00-0.06 H LYMPH x10^3 (test code = 731-0) 3.02 10*3/uL 1.32-3.29 MONO x10^3 (test code = 742-7) 0.94 10*3/uL 0.33-0.92 H EOS x10^3 (test code = 711-2) 0.14 10*3/uL 0.03-0.39 BASO x10^3 (test code = 704-7) 0.11 10*3/uL 0.01-0.07 H Lab Interpretation (test code = 35374-7) [facility]2021-[facility]-23 20:17:33* Test Item Value Reference Range Interpretation Comme nts POCT GLU (test code = 2722007563) 111 mg/dL 70-110 H Notified Provide r Lab Interpretation (test code = 27576-4) [facility], THINPREP, [id number] 00:00:00 * Test Item Value Reference Range Interpretation Comme nts SOURCE: (test code = 8001) Endocervical SLIDES: (test code = 8011) 1 LMP: (test code = 8021) 06/03/2021 SPECIMEN ADEQUACY: (test code = 97619) (NOTE) INTERPRETATION: (test code = 66858) ASCUS/EPITH. ABNORMALITY; SEE BELOW INSPECTOR METAL CAN: (test code = 8101) CHANA Thacker(ASC)[facility] PATHOLOGIST INTERPRETATION BY: (test code = 8122) Nahid Russell M.D. LOCATION: (test code = 56320) (NOTE) CPT: (test code = 8140) (NOTE) PAP TEST, THINPREP, [id number] 00:00:00* Test Item Value Reference Range Interpretation Comme nts SOURCE: (test code = 8001) Endocervical SLIDES: (test code = 8011) 1 LMP: (test code = 8021) 06/03/2021 SPECIMEN ADEQUACY: (test code = 09214) (NOTE) INTERPRETATION: (test code = 49149) ASCUS/EPITH. ABNORMALITY; SEE BELOW INSPECTOR METAL CAN: (test code = 8101) CHANA Thacker(ASC)[facility] PATHOLOGIST INTERPRETATION BY: (test code = 8122) Nahid Russell M.D. LOCATION: (test code = 62256) (NOTE) CPT: (test code = 8140) (NOTE) PAP TEST, THINPREP, [id number] 00:00:00* Test Item Value Reference Range Interpretation Comme nts SOURCE: (test code = 8001) Endocervical SLIDES: (test code = 8011) 1 LMP: (test code = 8021) 06/03/2021 SPECIMEN ADEQUACY: (test code = 65452) (NOTE) INTERPRETATION: (test code = 33841) ASCUS/EPITH. ABNORMALITY; SEE BELOW INSPECTOR METAL CAN: (test code = 8101) CHANA Thacker(ASCP)[facility] PATHOLOGIST INTERPRETATION BY: (test code = 8122) Nahid Russell M.D. LOCATION: (test code = 94493) (NOTE) CPT: (test code = 8140) (NOTE) PAP TEST, THINPREP, [id number] 00:00:00* Test Item Value Reference Range Interpretation Comme nts SOURCE: (test code = 8001) Endocervical SLIDES: (test code = 8011) 1 LMP: (test code = 8021) 06/03/2021 SPECIMEN ADEQUACY: (test code = 65692) (NOTE) INTERPRETATION: (test code = 67531) ASCUS/EPITH. ABNORMALITY; SEE BELOW INSPECTOR METAL CAN: (test code = 8101) CHANA Thacker(ASCP)[facility] PATHOLOGIST INTERPRETATION BY: (test code = 8122) Nahid Russell M.D. LOCATION: (test code = 86830) (NOTE) CPT: (test code = 8140) (NOTE) HPV HIGH RISK WITH GENOTYPE, [id number] 00:00:00* Test Item Value Reference Range Interpretation Comme nts HPV HIGH RISK INTERP (test c ode = 62982) POSITIVE HPV 16 (test code = 69797) POSITIVE HPV 18 (test code = 29748) NEGATIVE HPV, HR, OTHER GENOTYPES (te st code = 19563) POSITIVE HPV HIGH RISK WITH GENOTYPE, [id number] 00:00:00* Test Item Value Reference Range Interpretation Comme nts HPV HIGH RISK INTERP (test c ode = 70318) POSITIVE HPV 16 (test code = 21599) POSITIVE HPV 18 (test code = 09619) NEGATIVE HPV, HR, OTHER GENOTYPES (te st code = 43515) POSITIVE HPV HIGH RISK WITH GENOTYPE, [id number] 00:00:00* Test Item Value Reference Range Interpretation Comme nts HPV HIGH RISK INTERP (test c ode = 91927) POSITIVE HPV 16 (test code = 98594) POSITIVE HPV 18 (test code = 41167) NEGATIVE HPV, HR, OTHER GENOTYPES (te st code = 36602) POSITIVE HPV HIGH RISK WITH GENOTYPE, [id number] 00:00:00* Test Item Value Reference Range Interpretation Comme nts HPV HIGH RISK INTERP (test c ode = 64032) POSITIVE HPV 16 (test code = 55308) POSITIVE HPV 18 (test code = 32878) NEGATIVE HPV, HR, OTHER GENOTYPES (te st code = 00154) POSITIVE [id number] 03:22:48* Test Item Value Reference Range Interpretation Comme nts APPEARANCE (test code = 5365748447) Hazy Clear A COLOR (test code = 8460916872) Yellow Yellow PH (test code = 5097890787) 4.8-8.0 SP GRAVITY (test code = 4415226911) 1.003-1.030 GLU U QUAL (test code = 9625472378) Normal Normal BLOOD (test code = 6895847508) Negative Negative Interference fro m ascorbic acid may cause false negative results. KETONES (test code = 6962943219) 5 mg/dL Negative A PROTEIN (test code = 2887-8) Negative Negative UROBILIN (test code = 0779536877) 4.0 mg/dL Normal A BILIRUBIN (test code = 4427006226) Negative Negative NITRITE (test code = 6831215141) Negative Negative LEUK GRUPO (test code = 2617759511) Negative Negative RBC/HPF (test code = 7454975580) See_Comment [Automated Flare3da ge] The system which generated this result transmitted reference range: 0 - 3 HPF. The reference range was not used to interpret this result as normal/abnormal. WBC/HPF (test code = 5518514011) <1 See_Comment [Automated Flare3da ge] The system which generated this result transmitted reference range: 0 - 5 HPF. The reference range was not used to interpret this result as normal/abnormal. BACTERIA (test code = 0520764887) Few Negative A SQ EPITH (test code = 2964257308) HPF Lab Interpretation (test code = 23113-6) Abnormal [facility] [id number] 03:22:48* Test Item Value Reference Range Interpretation Comme nts APPEARANCE (test code = 5552367171) Hazy Clear A COLOR (test code = 6317398142) Yellow Yellow PH (test code = 0191670934) 4.8-8.0 SP GRAVITY (test code = 7718587238) 1.003-1.030 GLU U QUAL (test code = 5930810493) Normal Normal BLOOD (test code = 6681748126) Negative Negative KETONES (test code = 1951085311) 5 mg/dL Negative A PROTEIN (test code = 2887-8) Negative Negative UROBILIN (test code = 3419893103) 4.0 mg/dL Normal A BILIRUBIN (test code = 9884507822) Negative Negative NITRITE (test code = 1477110050) Negative Negative LEUK GRUPO (test code = 2932177607) Negative Negative RBC/HPF (test code = 6338214543) See_Comment [Automated Myntra] The system which generated this result transmitted reference range: 0 - 3 HPF. The reference range was not used to interpret this result as normal/abnormal. WBC/HPF (test code = 0466192782) <1 See_Comment [Automated Myntra] The system which generated this result transmitted reference range: 0 - 5 HPF. The reference range was not used to interpret this result as normal/abnormal. BACTERIA (test code = 6993907040) Few Negative A SQ EPITH (test code = 8601149505) HPF Lab Interpretation (test code = 29511-4) Abnormal [facility] [id number] 02:45:00* Test Item Value Reference Range Interpretation Comments TROPONIN I (test code = 8964581372) 0.002 ng/mL See_Comment [Automated message] The system [...] of biotin. Lab Interpretation (test code = 15001-2) [facility] [id number] 02:45:00* Test Item Value Reference Range Interpretation Comme nts TROPONIN I (test code = 7067464412) 0.002 ng/mL See_Comment [Automated messa ge] The system which generated this result transmitted reference range: <=0.034. The reference range was not used to interpret this result as normal/abnormal. LYNDSAY (test code = LYNDSAY) Lab Interpretation (test code = 07683-3) [facility] [id number] 02:41:57* Test Item Value Reference Range Interpretation Comme nts NT-proBNP (test code = 7559231467) 169 pg/mL See_Comment H [Automated message] The system which generated this result transmitted reference range: <=125. The reference range was not used to interpret this result as normal/abnormal. LYNDSAY (test code = LYNDSAY) Biotin has been reported to cause a negative bias, interpret results relative to patient's use of biotin. Lab Interpretation (test code = 97875-7) [facility] [id number] 02:41:57* Test Item Value Reference Range Interpretation Comme nts NT-proBNP (test code = 6872116951) 169 pg/mL See_Comment H [Automated messa Achievers] The system which generated this result transmitted reference range: <=125. The reference range was not used to interpret this result as normal/abnormal. LYNDSAY (test code = LYNDSAY) Lab Interpretation (test code = 89780-8) Abnormal [facility]. METABOLIC PANEL (68526)2021-03-17 02:09:13* Test Item Value Reference Range Interpretation Comme nts NA (test code = 7402295783) 137 mmol/L 135-145 K (test code = 8631610991) 4.2 mmol/L 3.5-5.0 CL (test code = 1910405071) 102 mmol/L 98-108 CO2 TOTAL (test code = 2797107533) 25 mmol/L 23-31 AGAP (test code = 2541158791) 2-16 BUN (test code = 3124118785) 18 mg/dL 7-23 GLUCOSE (test code = 7656410691) 144 mg/dL 70-110 H CREATININE (test code = 9786748608) 0.77 mg/dL 0.50-1.04 TOTAL BILI (test code = 4444973504) 0.4 mg/dL 0.1-1.1 CALCIUM (test code = 4427770272) 8.9 mg/dL 8.6-10.6 T PROTEIN (test code = 5714750321) 6.8 g/dL 6.3-8.2 ALBUMIN (test code = 0213990166) 3.9 g/dL 3.5-5.0 ALK PHOS (test code = 0766996106) 84 U/L 34-122 ALTv (test code = 1742-6) 13 U/L 5-35 AST(SGOT) (test code = 8917556418) 17 U/L 13-40 eGFR (test code = 6565417060) mL/min/1.73m2 LYNDSAY (test code = LYNDSYA) Association of Glomerular Filtration Rate (GFR) and [...] imaging tests). Lab Interpretation (test code = 62232-5) [facility] MET[facility]OLIC PANEL (83669)2021-03-17 02:09:13* Test Item Value Reference Range Interpretation Comme nts NA (test code = 9567396048) 137 mmol/L 135-145 K (test code = 8407163004) 4.2 mmol/L 3.5-5.0 CL (test code = 9988021444) 102 mmol/L 98-108 CO2 TOTAL (test code = 3342099006) 25 mmol/L 23-31 AGAP (test code = 2433519239) 2-16 BUN (test code = 7455230033) 18 mg/dL 7-23 GLUCOSE (test code = 1189889908) 144 mg/dL 70-110 H CREATININE (test code = 4504875244) 0.77 mg/dL 0.50-1.04 TOTAL BILI (test code = 9912559204) 0.4 mg/dL 0.1-1.1 CALCIUM (test code = 7343590003) 8.9 mg/dL 8.6-10.6 T PROTEIN (test code = 6532378382) 6.8 g/dL 6.3-8.2 ALBUMIN (test code = 0474208349) 3.9 g/dL 3.5-5.0 ALK PHOS (test code = 6122894189) 84 U/L 34-122 ALTv (test code = 1742-6) 13 U/L 5-35 AST(SGOT) (test code = 9009325699) 17 U/L 13-40 eGFR (test code = 0179952989) mL/min/1.73m2 LYNDSAY (test code = LYNDSAY) Lab Interpretation (test cod e = 24280-4) Abnormal [facility] WITH [id number] 01:56:33* Test Item Value Reference Range Interpretation Comme nts WBC (test code = 6690-2) See_Comment H [Automated Flare[employer] Achie[employer]] The system which generated this result transmitted reference range: 4.30 - 11.10 10*3/?L. The reference range was not used to interpret this result as normal/abnormal. RBC (test code = 789-8) See_Comment [Automated Flare3da ge] The system which generated this result [...] g/dL 31.6-35.1 L RDW-SD (test code = 81063-3) 55.5 fL 39.0-49.9 H RDW-CV (test code = 788-0) 18.9 % 12.0-15.5 H PLT (test code = 777-3) See_Comment H [Automated messa ge] The system which generated this result transmitted reference range: 166 - 358 10*3/?L. The reference range was not used to interpret this result as normal/abnormal. MPV (test code = 62733-8) 8.2 fL 9.5-12.9 L NRBC/100 WBC (test code = 3774924209) See_Comment [Automated [employer] ssage] The system which generated this result transmitted reference range: 0.0 - 10.0 /100 WBCs. The reference range was not used to interpret this result as normal/abnormal. NRBC x10^3 (test code = 4203160116) <0.01 See_Comment [Automated Flare3da ge] The system which generated this result transmitted reference range: 10*3/?L. The reference range was not used to interpret this result as normal/abnormal. GRAN MAT (NEUT) % (test code = 770-8) 61.7 % IMM GRAN % (test code = 4432926317) 0.80 % LYMPH % (test code = 736-9) 28.5 % MONO % (test code = 5905-5) 6.3 % EOS % (test code = 713-8) 1.8 % BASO % (test code = 706-2) 0.9 % GRAN MAT x10^3(ANC) (test code = 3686401025) 7.31 10*3/uL 1.88-7.09 H IMM GRAN x10^3 (test code = 9523710106) 0.09 10*3/uL 0.00-0.06 H LYMPH x10^3 (test code = 731-0) 3.38 10*3/uL 1.32-3.29 H MONO x10^3 (test code = 742-7) 0.75 10*3/uL 0.33-0.92 EOS x10^3 (test code = 711-2) 0.21 10*3/uL 0.03-0.39 BASO x10^3 (test code = 704-7) 0.11 10*3/uL 0.01-0.07 H Lab Interpretation (test code = 85748-1) Abnormal [facility] WITH [id number] 01:56:33* Test Item Value Reference Range Interpretation Comme nts WBC (test code = 6690-2) See_Comment H [Automated messa ge] The system which generated this result transmitted reference range: 4.30 - 11.10 10*3/?L. The reference range was not used to interpret this result as normal/abnormal. RBC (test code = 789-8) See_Comment [Automated Flare3da ge] The system which generated this result [...] g/dL 31.6-35.1 L RDW-SD (test code = 28945-7) 55.5 fL 39.0-49.9 H RDW-CV (test code = 788-0) 18.9 % 12.0-15.5 H PLT (test code = 777-3) See_Comment H [Automated messa ge] The system which generated this result transmitted reference range: 166 - 358 10*3/?L. The reference range was not used to interpret this result as normal/abnormal. MPV (test code = 65541-4) 8.2 fL 9.5-12.9 L NRBC/100 WBC (test code = 3099377708) See_Comment [Automated me ssage] The system which generated this result transmitted reference range: 0.0 - 10.0 /100 WBCs. The reference range was not used to interpret this result as normal/abnormal. NRBC x10^3 (test code = 0419068740) <0.01 See_Comment [Automated messa ge] The system which generated this result transmitted reference range: 10*3/?L. The reference range was not used to interpret this result as normal/abnormal. GRAN MAT (NEUT) % (test code = 770-8) 61.7 % IMM GRAN % (test code = 5199310513) 0.80 % LYMPH % (test code = 736-9) 28.5 % MONO % (test code = 5905-5) 6.3 % EOS % (test code = 713-8) 1.8 % BASO % (test code = 706-2) 0.9 % GRAN MAT x10^3(ANC) (test code = 0024751605) 7.31 10*3/uL 1.88-7.09 H IMM GRAN x10^3 (test code = 2532243452) 0.09 10*3/uL 0.00-0.06 H LYMPH x10^3 (test code = 731-0) 3.38 10*3/uL 1.32-3.29 H MONO x10^3 (test code = 742-7) 0.75 10*3/uL 0.33-0.92 EOS x10^3 (test code = 711-2) 0.21 10*3/uL 0.03-0.39 BASO x10^3 (test code = 704-7) 0.11 10*3/uL 0.01-0.07 H Lab Interpretation (test code = 99262-1) [facility] NOW RAPID TESTING)2021-03-17 01:38:12* Test Item Value Reference Range Interpretation Comme nts SARS-CoV-2 Rapid ID NOW (test code = 46579-4) Not Detected Not Detected LYNDSAY (test code = LYNDSAY) ID NOW COVID-19 As say is an isothermal nucleic acid amplification test intended for the qualitative detection of nucleic acid from SARS-CoV-2 viral RNA in nasopharyngeal (PRICING MANAGER) specimens. It is used under Emergency Use Authorization (EUA) by [facility]. The limit of detection (LOD) of [...] clinically indicated. Lab Interpretation (test code = 81872-6) [place] [address] (ID NOW RAPID TESTING)2021-03-17 01:38:12* Test Item Value Reference Range Interpretation Comme nts SARS-CoV-2 Rapid ID NOW (raisa t code = 97595-9) Not Detected Not Detected LYNDSAY (test code = LYNDSAY) Lab Interpretation (test cod e = 22681-4) [place] [address] (ID NOW RAPID TESTING)2021-02-19 17:42:45* Test Item Value Reference Range Interpretation Comme nts SARS-CoV-2 Rapid ID NOW (test code = 57589-8) Not Detected Not Detected LYNDSAY (test code = LYNDSAY) ID NOW COVID-19 As say is an isothermal nucleic acid amplification test intended for the qualitative detection of nucleic acid from SARS-CoV-2 viral RNA in nasopharyngeal (PRICING MANAGER) specimens. It is used under Emergency Use Authorization (EUA) by [facility]. The limit of detection (LOD) of [...] clinically indicated. Lab Interpretation (test code = 54168-3) Normal [facility]BDOMEN PELVIS W [id number] 17:24:55Thickening of the gastric antrum and duodenal [...] Electronicallysigned by James Freeman at 02/19/2021 12:24 PMUnGuadalupe [facility] CenterUrinalysis2021-08-03 17:03:40* Test Item Value Reference Range Interpretation Comme nts APPEARANCE (test code = 6419105515) Hazy Clear A COLOR (test code = 7765967418) Mabel Yellow A PH (test code = 8582876446) 4.8-8.0 SP GRAVITY (test code = 5300798280) 1.003-1.030 H GLU U QUAL (test code = 9383156616) Normal Normal BLOOD (test code = 7789856990) Negative Negative KETONES (test code = 8130474785) 5 mg/dL Negative A PROTEIN (test code = 2887-8) 30 mg/dL Negative A UROBILIN (test code = 7591267093) 4.0 mg/dL Normal A BILIRUBIN (test code = 7545976791) 4 mg/dL Negative A NITRITE (test code = 1116486496) Negative Negative LEUK GRUPO (test code = 1809584847) Negative Negative RBC/HPF (test code = 0765813759) See_Comment H [Automated messa ge] The system which generated this result transmitted reference range: 0 - 3 HPF. The reference range was not used to interpret this result as normal/abnormal. WBC/HPF (test code = 2942966078) See_Comment H [Automated messa ge] The system which generated this result transmitted reference range: 0 - 5 HPF. The reference range was not used to interpret this result as normal/abnormal. BACTERIA (test code = 4842238114) Few Negative A MUCOUS (test code = 9660502690) Moderate Negative LPF A SQ EPITH (test code = 3630053163) HPF CA OXALATE (test code = 0394813729) See_Comment H [Automated messa ge] The system which generated this result transmitted reference range: <=1 HPF. The reference range was not used to interpret this result as normal/abnormal. Ictotest (test code = 5314984381) Negative Lab Interpretation (test code = 30340-8) [facility]normal [facility] Center[facility] Metabolic Vnnza4690-80-83 16:34:55* Test Item Value Reference Range Interpretation Comme nts NA (test code = 7631020039) 139 mmol/L 135-145 K (test code = 1266410877) 4.3 mmol/L 3.5-5.0 CL (test code = 1950300735) 105 mmol/L 98-108 CO2 TOTAL (test code = 3256895934) 26 mmol/L 23-31 AGAP (test code = 0886740360) 2-16 BUN (test code = 4788290838) 11 mg/dL 7-23 GLUCOSE (test code = 6147783081) 95 mg/dL 70-110 CREATININE (test code = 1705741940) 0.70 mg/dL 0.50-1.04 TOTAL BILI (test code = 8325316372) 0.6 mg/dL 0.1-1.1 CALCIUM (test code = 5285261478) 8.9 mg/dL 8.6-10.6 T PROTEIN (test code = 9588960212) 7.7 g/dL 6.3-8.2 ALBUMIN (test code = 8113331270) 4.1 g/dL 3.5-5.0 ALK PHOS (test code = 1075662359) 79 U/L 34-122 ALTv (test code = 1742-6) 10 U/L 5-35 AST(SGOT) (test code = 1124196346) 22 U/L 13-40 eGFR (test code = 2684249083) mL/min/1.73m2 LYNDSAY (test code = LYNDSAY) Association [...] or urine or abnormalities in imaging tests). [facility] CenterLip[facility], [id number] 16:34:14* Test Item Value Reference Range Interpretation Comme nts LIPASE (test code = 3660107903) 45 U/L 0-220 Lab Interpretation (test cod e = 91277-9) [facility] CenterCBC with Tkloieejvhuw6310-16-01 16:21:12* Test Item Value Reference Range Interpretation Comme nts WBC (test code = 6690-2) See_Comment [Automated Fl[employer] ge] The system which generated this result transmitted reference range: 4.30 - 11.10 10*3/?L. The reference range was not used to interpret this result as normal/abnormal. RBC (test code = 789-8) See_Comment [Automated [employer] ge] The system which generated this result [...] g/dL 31.6-35.1 L RDW-SD (test code = 08842-8) 54.4 fL 39.0-49.9 H RDW-CV (test code = 788-0) 18.3 % 12.0-15.5 H PLT (test code = 777-3) See_Comment H [Automated [employer] ge] The system which generated this result transmitted reference range: 166 - 358 10*3/?L. The reference range was not used to interpret this result as normal/abnormal. MPV (test code = 34995-3) 8.5 fL 9.5-12.9 L NRBC/100 WBC (test code = 8334183387) See_Comment [Automated me ssage] The system which generated this result transmitted reference range: 0.0 - 10.0 /100 WBCs. The reference range was not used to interpret this result as normal/abnormal. NRBC x10^3 (test code = 8918053744) <0.01 See_Comment [Automated messa ge] The system which generated this result transmitted reference range: 10*3/?L. The reference range was not used to interpret this result as normal/abnormal. GRAN MAT (NEUT) % (test code = 770-8) 78.3 % IMM GRAN % (test code = 4612882846) 0.40 % LYMPH % (test code = 736-9) 15.4 % MONO % (test code = 5905-5) 4.8 % EOS % (test code = 713-8) 0.1 % BASO % (test code = 706-2) 1.0 % GRAN MAT x10^3(ANC) (test code = [id number]) 7.15 10*3/uL 1.88-7.09 H IMM GRAN x10^3 (test code = [id number]) 0.04 10*3/uL 0.00-0.06 LYMPH x10^3 (test code = 731-0) 1.41 10*3/uL 1.32-3.29 MONO x10^3 (test code = 742-7) 0.44 10*3/uL 0.33-0.92 EOS x10^3 (test code = 711-2) <0.03 0.03-0.39 L BASO x10^3 (test code = 704-7) 0.09 10*3/uL 0.01-0.07 H Lab Interpretation (test code = 14144-3) Abnormal [facility] Notes Date/Time Note Provider Source 2023-09-11 11:34:02 [id number]/d0RsA3 HycnxBGHxvg/[id number] 1:34:02 Chief ComplaintPatient presents withFollow-up HospitalizationPaBETO HarperN [id number] JosoME3964-62-25S57:34:35Nurse NoteTXT1.2.840.773751.1.13.131.2.7.2.7 33366|[id number] for patient csfo68893-6Jckwa NoteLNNARRATIVEFormatted C-CDA narrative textPsychiatric hospital, demolished [id number] [facility].[id number] 335-63-54O80:34:351.2.840.359538.1.72. 3.15|1.2.840.457375.1.13.131.2.7.2.727 [id number] [facility] [place] [facility] 2023-08-12 16:08:34 KhQNdoYxwnURk62V8bfNtgJx/IfobAm3t+T3SV nKzkyhGoWNKqu3dZZcF2XZElqg7985-09-81H0 6:08:34 Bryan spoke to patient and patient decided to leave AMA.AMA form signed by patient and attached to paperwork.Patient in stable condition with AMA. IV line removed and patient was assisted onto wheelchair and moved to the [facility].Patient called her prior to leaving room and will be picking up patient. 07630-3Vqpdahrfp department ZxrcZJ4414-66-32Z40:09:43Emergency department NoteTXT1.2.840.651455.1.13.104.2.7.2.7 71626|[id number] for patient ylor38184-3GvgwPTNNWJXCNHGDwiuxipxk C-CDA narrative [id number] [place] RNUTMBUT58 Williams StreetDlxqEwzxtppnuUqdviwphsJQDW5622157718HK RMBZHKGXBLKFZFJKYJRA5439-23-56J43:09:4 31.2.840.163914.1.72.3.15|1.2.840.1143 50.1.13.104.2.7.2.727879_[id number] Steph Dumont RN [facility] 2023-08-12 15:56:21 +/XrOhSvPgT854/mtNpcPRujL5R7sHTXfSzMCj R5GdjabkjFjHsHijwqFxhGNXyA5185-10-57U7 5:56:21 Patient requesting to talk to provider - provider aware.Patient refused tylenol as she said medication does not improve her condition and she does not want to throw it up.Patient also refusing blood draw at this time. 07033-7Sbeavbpht department PtifNY9003-07-59G08:57:14[facility] NoteTXT1.2.840.054990.1.13.104.2.7.2.7 23877|[id number] for patient hbva19136-1OonqMMDZAYWUNTOWxtcjcfdm C-CDA narrative text[address] UuthOumbehadaTxjsfawmpYJBJ0986228820KF QLFTDIOSNNCGCJEHASYG4498-41-47V80:57:1 41.2.840.505737.1.72.3.15|1.2.840.1143 50.1.13.104.2.7.2.727879_[id number] [facility] 2023-08-12 14:50:00 bz4RfTKO4baCeQcmWfQl9ZQAzStKBz2i3X/mPV za4TexM2EPOj2bU3bG1VW4Ezvm7071-42-87C7 4:50:00 Patient's name and verified with patient.No [...] [place] [address]-3Mnhtqarqo department HsxyQH2581-66-33E29:29:07[facility] department NoteTXT1.2.840.370204.1.13.104.2.7.2.7 39616|[id number] for patient lwca43146-2LcvwNZHDNZHLZQQVauxqxycl C-CDA narrative text[address] ExysRlzxyxosdUaaapyripBSTI0360192503YZ CKFSJKJNHVLEGDEXDJSN5931-43-99F49:29:0 71.2.840.891699.1.72.3.15|1.2.840.1143 50.1.13.104.2.7.2.727879_[id number] [facility] 2023-08-12 14:17:22 nr6FHWr3kI8nW7Vn5PG15NBiACoe++0dtp7yu6 tSJ5PixE+wbMGryjpOsZKwVfik1682-63-79J6 4:17:22 Patient had witnessed seizure like activity.DO Flor at bedside.Patient stopped seizure activity and had no postictal phase.Patient coherent, alert and oriented/answering all questions appropriately. 21505-2Ygidpxbnm department KunoPF1684-42-25L28:18:15[facility] department NoteTXT1.2.840.952665.1.13.104.2.7.2.7 94182|[id number] for patient bmjv52188-6SyorSMXNUKDBRCDBmykrmdoa C-CDA narrative text[address] RwvcKbvtfcqwvRghwyilreWJHP2369830733KH YHLCDZYAZXVLNTTMNSAT0351-98-47S12:18:1 51.2.840.719934.1.72.3.15|1.2.840.1143 50.1.13.104.2.7.2.727879_[id number] [facility] 2023-08-12 13:45:33 PvZWt3Jj8jITOlsuYpe6XpO25Yv7mLa/HjgJpP W+B+bb1cDH2i2iXj/VBe7HUTS22983-19-03C8 3:45:33 Patient here for chest pain that started approximately 1 hour ago. Patient had seizure like activity in the vehicle while attempting to get patient out of the car, patient had no post ictal phase. Patient c/o substernal chest pain and jaw pain. 13259-8Hgoeabela department Triage ykluKN3143-30-79A51:46:59[facility] Triage noteTXT1.2.840.128234.1.13.104.2.7.2.7 37557|[id number] for patient rncl80502-6Shztnktth department NoteLNNARRATIVEFormatted C-CDA narrative [id number] S Cryer RNUT[address] CoegHkzumyknoDoxmbxdcwIPHQ2502875193AW RTMAWAGHDPLMQYXRCDZB5656-14-56J97:46:5 91.2.840.571152.1.72.3.15|1.2.840.1143 50.1.13.104.2.7.2.727879_[id number] Jasvir Reaves RN [facility] 2023-08-12 13:42:00 LhLkXcBjAJNB3+avrS/4ralYyufTcIXB12Ts/c +2Rw+/R2UL79B8y3x6peozDXaO7404-38-23E5 3:42:00 [facility] Emergency Department NotePatient Name: Heather TurnerDate of : 1970 53 year old femaleTreatment Room: [address] Record Number: [id number] Care Physician: PATIENT DOES NOT HAVE A PCPPatient Escorted by: Family [5]Mode of Arrival: Personal means [1]EMS Treatment Prior to ED Arrival:PLATINUMSMITH treatment: NoneTravel and Exposure Screening:SymptomsDoes patient have [...] received in last 5 years: NoChildhood immunizations: Wc-so-dnnhYkyhgffui:AllergiesAllergen ReactionsGreen Tea Other - See commentsSeizuresDiclofenac HypertensionKeppra [...] handMETATARSAL OSTEOTOMY Right 08/14/2015Surgeon: Luis Jones Jr., [facility]; [facility]:Review of SystemsPhysical Exam:ED Triage [...] (*) 0.01 - 0.07 10*3/uLCOMP. METABOLIC PANEL (11596) - AbnormalNA 140 135 - 145 mmol/LK [...] U/LAST(SGOT) 21 13 - 40 U/LeGFR 107.1 mL/min/1.61w3MDBDTI ACID WHOLE BLOOD - NormalLACTIC ACID 1.56 0.50 - 2.20 mmol/LURINALYSISTROPONIN IEKG:If EKG completed, see Procedure Note.Orders and Treatments:Orders Placed This EncounterProceduresCbc with DiffComp. Metabolic Panel (20266)UrinalysisLactic Acid Whole BloodTroponin IOrders Placed This EncounterMedicationslacosamide (VIMPAT) 100 mg in NaCl 0.9% (NS) 50 mL piggybackacetaminophen (TYLENOL) tablet 1,000 mgFirst Provider Eval:ED EventsDate/Time Event User Ktvzgfib50/24/24 1345 Medical Screening Begins BRIAN BRYAN --08/12/23 [...] on fileFollow-up:Contact information for follow-Yehuda Segovia MDSpecialty: -[facility] AND [address] [address]Dpypn: [phone]-Emergency DepartmentSpecialty: Emergency X[address] [place] [address]Rlyel: [phone]: If symptoms worsen as documented in the dischargeElectronically signed by:Brian Bryan DO08/12/23 1605Brian Bryan DO08/12/23 1605 27527-6Pjmwmsuvu Emergency department PfixXF6044-50-11T09:05:59Physician Emergency department NoteTXT1.2.840.962148.1.13.104.2.7.2.7 51852|[id number] for patient qahd84043-1Fcjmhougx department NoteLNNARRATIVEFormatted C-CDA narrative text[address] Rt[id number] HMFLNYUHUZGUMBEEZFRP0364-31-82F14:05:5 91.2.840.357011.1.72.3.15|1.2.840.1143 50.1.13.104.2.7.2.727879_[id number] [facility]
[2023-09-26 23:33] LABS: Protime INR 1.37
[2023-09-26 23:35] LABS: Absolute Lymphocytes (CBC) 2.3 K/uL (0.7-4.9); Basophils % 0.4 % (0-1.3); Eosinophils % 0.1 % (0-4.4); Hematocrit 28.7 % (36.0-45.0); Hemoglobin 9.3 g/dL (12.0-15.0); Lymphocytes % 22.9 % (15.3-44.8); MCV 81.7 fL (80-100); MPV 7.3 fL (7.6-11.3); Platelets 354 thou/uL (152-406); RBC Red Blood Cell Count 3.51 M/uL (3.86-4.86)
[2023-09-26 23:43] LABS: SARS-CoV-2 Antigen Rapid Res Negative (Negative)
[2023-09-26 23:48] LABS: Albumin 3.5 g/dL (3.4-5.0); Anion Gap 11.6 mEq/L (5.0-15.0); Bilirubin Direct 0.2 mg/dL (0-0.2); Bilirubin Indirect, Calculated 0.2 mg/dL (0.2-0.8); Bilirubin Total 0.4 mg/dL (0.2-1.0); Globulin 3.6 g/dL (2.3-3.5); Magnesium 2.4 mg/dL (1.6-2.4); Potassium 3.6 mEq/L (3.5-5.1); Protein, Total 7.1 g/dL (6.4-8.2); Troponin High Sensitivity 31.9 pg/mL (<58.9)
[2023-09-27] MEDS ORDERED: MORPHINE 4 MG/ML SYR ONE (00:05)
[2023-09-27] MEDS ORDERED: OSELTAMIVIR 75 MG CAP PO ONE (00:05)
--- NOTE | 2023-09-27 00:46 | ER ---
Nurse's Notes [facility] Name: Heather Coon Age: 53 yrs Sex: Female : 1970 Arrival Date: 09/26/2023 Time: 22:52 Bed 8 Private MD: Diagnosis: Influenza due to identified novel influenza A virus with other respiratory manifestations;Acute on chronic systolic (congestive) heart failure Presentation: 09/25 23:06 Chief complaint: EMS states: toned out for trouble breathing and bilateral lower tm6 extremity edema. Coronavirus screen: Vaccine status: Patient reports receiving the 2nd dose of the covid vaccine. Client denies travel out of the [place] in the last 14 days. Ebola Screen: Patient negative for fever greater than or equal to 101.5 degrees Fahrenheit, and additional compatible Ebola Virus Disease symptoms Patient denies exposure to infectious person. Patient denies travel to an Ebola-affected area in the 21 days before illness onset. No symptoms or risks identified at this time. Initial Sepsis Screen: Does the patient meet any 2 criteria? HR > 90 bpm. No. Patient's initial sepsis screen is negative. Does the patient have a suspected source of infection? No. Patient's initial sepsis screen is negative. Risk Assessment: Do you want to hurt yourself or someone else? Patient reports no desire to harm self or others. Onset of symptoms was September 26, 2023. 23:06 Method Of Arrival: EMS: [facility] [place]m6 23:06 Acuity: ANDER 2 tm6 Triage Assessment: 23:08 General: Appears distressed, uncomfortable, Behavior is cooperative, anxious. Pain: tm6 Complains of pain in thoracic area Pain does not radiate. Pain currently is 8 out of 10 on a pain scale. Quality of pain is described as aching. EENT: No signs and/or symptoms were reported regarding the EENT system. Neuro: Level of Consciousness is awake, alert, obeys commands, Oriented to person, place, time, situation. Cardiovascular: Reports shortness of breath, Capillary refill < 3 seconds Patient's skin is warm and dry. Rhythm is sinus tachycardia. Cardiovascular: Edema is 2+ to left ankle and right ankle. Respiratory: Reports shortness of breath at rest on exertion cough that is productive, labored breathing Airway is patent Respiratory effort is even, labored, Respiratory pattern is symmetrical, Breath sounds are coarse bilaterally. GI: No signs and/or symptoms were reported involving the gastrointestinal system. Abdomen is round non-distended. : No signs and/or symptoms were reported regarding the genitourinary system. Derm: No signs and/or symptoms reported regarding the dermatologic system. Musculoskeletal: No signs and/or symptoms reported regarding the musculoskeletal system. 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: 23:13 LMP N/A - Hysterectomy, Not tm6 Historical: - Allergies: 23:08 fluoxetine; tm6 23:08 Green Tea; tm6 23:08 Keppra; not an allergy; tm6 - PMHx: 23:08 Anxiety; Arthritis; Bipolar disorder; Cancer-Cervical; Chronic obstructive lung tm6 disease; Chronic pain; Depression; Diverticulitis; Congestive heart failure; Herniated Back Disc; Hypertension; intestinal mass; Myocardial infarction; pt reports hx of seizures; Spastic Muscles; stroke; - PSHx: 23:08 back surgery; cervical fusion; foot; Cholecystectomy; Tonsillectomy; tm6 - Immunization history:: Adult Immunizations up to date, Client reports receiving the 2nd dose of the Covid vaccine, Flu vaccine is up to date. - Social history:: Smoking status: Patient reports the use of cigarette tobacco products, smokes one-half pack cigarettes per day, Patient uses alcohol, on a daily basis. Patient/guardian denies using street drugs. Screenin:13 [facility] ED Fall Risk Assessment (Adult) History of falling in the last 3 months, tm6 including since admission No falls in past 3 months (0 pts) Confusion or Disorientation No (0 pts) Intoxicated or Sedated No (0 pts) Impaired Gait No (0 pts) Mobility Assist Device Used No (0 pt) Altered Elimination No (0 pt) Score/Fall Risk Level 0 - 2 = Low Risk Oriented to surroundings, Maintained a safe environment. Abuse screen: Denies threats or abuse. Denies injuries from another. Nutritional screening: No deficits noted. Tuberculosis screening: No symptoms or risk factors identified. Assessment: 23:13 Reassessment: see triage assessment. tm6 09/26 00:02 Reassessment: Patient appears in no apparent distress at this time. Patient and/or km8 family updated on plan of care and expected duration. Pain level reassessed. Patient is alert, oriented x 3, equal unlabored respirations, skin warm/dry/pink. 01:03 Reassessment: Patient appears in no apparent distress at this time. Patient and/or tm6 family updated on plan of care and expected duration. Pain level reassessed. Patient is alert, oriented x 3, equal unlabored respirations, skin warm/dry/pink. 03:00 Reassessment: No changes from previously documented assessment. pt sleeping at this km8 time. Vital Signs: 09/25 23:06 BP 151 / 110; Pulse 108; Resp 18; Temp 97.3(TE); Pulse Ox 97% on R/A; Weight 81.65 kg; tm6 Height 5 ft. 3 in. ; Pain 8/10; 23:16 BP 146 / 92; Pulse 101; Resp 30; Pulse Ox 100% on Nebulizer Mask; km8 23:45 BP 146 / 95; Pulse 101; Resp 24; Pulse Ox 97% on R/A; km8 09/26 01:03 BP 150 / 103; Pulse 105; Resp 26; Pulse Ox 100% on 2 lpm NC; Pain 5/10; tm6 03:00 BP 138 / 100; Pulse 101; Resp 24; Pulse Ox 99% on R/A; km8 09/25 23:06 Body Mass Index 31.89 (81.65 kg, 160.02 cm) tm6 09/25 23:06 Pain Scale: Adult tm6 09/26 01:03 Pain Scale: Adult tm6 ED Course: 09/25 22:54 Patient arrived in ED. rv1 22:55 [facility] sb4 22:55 Norbert Fisher DO is Attending Physician. sb4 22:55 Inserted saline lock: 22 gauge in right forearm, using aseptic technique. Blood km8 collected. 22:56 Tawanda Shaw, RN is Primary Nurse. tm6 23:03 EKG done, by construction technician. reviewed by Mariola Mahmood PA-C. oe 23:05 Initial lab(s) drawn, by az, sent to lab. First set of blood cultures drawn by me, km8 COVID swab sent to lab. Flu and/or RSV swab sent to lab. 23:08 Triage completed. tm6 23:08 Arm band placed on left wrist. tm6 23:13 Initial Neb Treatment Given as ordered Patient was instructed and evaluated on tm6 procedure Patient tolerated procedure well without adverse effect. 23:13 Patient has correct armband on for positive identification. Placed in gown. Bed in low tm6 position. Call light in reach. Side rails up X2. Provided Education on: plan of care. Client placed on continuous cardiac and pulse oximetry monitoring. NIBP monitoring applied. black jack dealer on. Pulse ox on. NIBP on. Noise minimized. Warm blanket given. 23:15 XRAY Chest (1 view) In Process Unspecified. EDMS 03 00:00 Oxygen administration via nasal cannula \T\ 2L/min. tm6 00:00 Warm blanket given. tm6 00:03 No provider procedures requiring assistance completed. km8 00:30 Assisted to bedside commode. Repositioned patient. tm6 00:46 Jay Rizvi MD is Hospitalizing Provider. sb4 00:51 Chest For PE Angio CT In Process Unspecified. EDMS 01:03 external urinary catheter placed. tm6 04:03 Patient admitted, IV remains in place. tm6 05:05 Second set of blood cultures drawn. oe 05:09 Inserted saline lock: 22 gauge in left wrist, using aseptic technique. Blood collected. oe Administered Medications: 03 23:05 Drug: DuoNeb Nebulize (3:1) (2.5 mg - 0.5 mg) 3 ml Nebulizer once Route: Nebulizer; tm6 23:05 Drug: Ondansetron IVP 4 mg IVP once; over 2 minutes Route: IVP; Site: right wrist; tm6 03 00:31 Drug: Oseltamivir PO 75 mg PO once Route: PO; tm6 00:31 Drug: morphine IVP or IV 4 mg IVP once over 4 mins Route: IVP; Infused Over: 4 mins; tm6 Site: right wrist; 01:05 Drug: Furosemide IVP 20 mg IVP once; give over 2 minutes Route: IVP; Site: right wrist; tm6 Medication: 00:02 VIS not applicable for this client. km8 Outcome: 00:46 Decision to Hospitalize by Provider. sb4 04:02 Admitted to ER Hold. Please see [facility] for further documentation. tm6 04:02 Condition: stable 04:02 Instructed on the need for admit, Demonstrated understanding of instructions, 14:06 Patient left the ED. ko1 Signatures: Dispatcher [employer] EDMS Chace Ross oe Ayanna Willis, RN RN ko1 aMriola Mahmood PA-C PAYarelisC lan4 Makenna Kirk1 Merlyn Salinas, RN RN km8 Tawanda Shaw RN RN tm6 Corrections: (The following items were deleted from the chart) 05:11 05:09 Inserted saline lock: 22 gauge in left wrist, using aseptic technique. Blood oe collected. oe
--- NOTE | 2023-09-27 00:47 | EDPHYS ---
Physician Documentation [facility] Name: Heather Coon Age: 53 yrs Sex: Female : 1970 Arrival Date: 09/26/2023 Time: 22:52 Bed 8 Private MD: ED Physician Norbert Fisher HPI: 09/25 23:04 This 53 yrs old Female presents to ER via Unassigned with complaints of Shortness Of sb4 Breath. 23:04 patient with multiple comorbidities- COPD, CHF, CAD, seizures/pseudoseizures, HTN, sb4 chronic back pain, mobility issues- presents with complaints of shortness of breath and feet swelling. most recently admitted here 1 week ago for a fall and seizures. she reports compliance with her medications. is working with home health to get a nebulizer. requesting morphine and zofran upon arrival. 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: 23:13 LMP N/A - Hysterectomy, Not tm6 Historical: - Allergies: 23:08 fluoxetine; tm6 23:08 Green Tea; tm6 23:08 Keppra; not an allergy; tm6 - PMHx: 23:08 Anxiety; Arthritis; Bipolar disorder; Cancer-Cervical; Chronic obstructive lung tm6 disease; Chronic pain; Depression; Diverticulitis; Congestive heart failure; Herniated Back Disc; Hypertension; intestinal mass; Myocardial infarction; pt reports hx of seizures; Spastic Muscles; stroke; - PSHx: 23:08 back surgery; cervical fusion; foot; Cholecystectomy; Tonsillectomy; tm6 - Immunization history:: Adult Immunizations up to date, Client reports receiving the 2nd dose of the Covid vaccine, Flu vaccine is up to date. - Social history:: Smoking status: Patient reports the use of cigarette tobacco products, smokes one-half pack cigarettes per day, Patient uses alcohol, on a daily basis. Patient/guardian denies using street drugs. ROS: 23:04 Constitutional: Negative for fever, chills, and weight loss, sb4 23:04 Cardiovascular: Positive for chest pain, edema, 23:04 Respiratory: Positive for shortness of breath, 23:04 Abdomen/GI: Positive for nausea and vomiting, Negative for 23:04 All other systems are negative, Exam: 23:04 Constitutional: This is a well developed, well nourished patient who is awake, alert, sb4 and in no acute distress. Head/Face: Normocephalic, atraumatic. Eyes: Extra-ocular motions intact. Periorbital areas with no swelling, redness, or edema. ENT: Mucous membranes moist. Cardiovascular: Regular rate and rhythm with a normal S1 and S2. Abdomen/GI: Soft, non-tender, no distension. Skin: Warm, dry with normal turgor. Normal color with no rashes, no lesions, and no evidence of cellulitis. MS/ Extremity: Pulses equal, no cyanosis. Neurovascular intact. Full, normal range of motion. Neuro: Awake and alert, GCS 15, oriented to person, place, time, and situation. Motor strength 5/5 in all extremities. Sensory grossly intact. 23:04 Respiratory: the patient does not display signs of respiratory distress, Respirations: normal, Breath sounds: rales, that are moderate, are heard in the left posterior upper lobe and right posterior upper lobe, wheezing: that is moderate, is heard in the left posterior lower lobe and right posterior lower lobe, Vital Signs: 23:06 BP 151 / 110; Pulse 108; Resp 18; Temp 97.3(TE); Pulse Ox 97% on R/A; Weight 81.65 kg; tm6 Height 5 ft. 3 in. ; Pain 8/10; 23:16 BP 146 / 92; Pulse 101; Resp 30; Pulse Ox 100% on Nebulizer Mask; km8 23:45 BP 146 / 95; Pulse 101; Resp 24; Pulse Ox 97% on R/A; km8 09/26 01:03 BP 150 / 103; Pulse 105; Resp 26; Pulse Ox 100% on 2 lpm NC; Pain 5/10; tm6 03:00 BP 138 / 100; Pulse 101; Resp 24; Pulse Ox 99% on R/A; km8 09/25 23:06 Body Mass Index 31.89 (81.65 kg, 160.02 cm) tm6 09/25 23:06 Pain Scale: Adult tm6 09/26 01:03 Pain Scale: Adult tm6 MDM: 09/25 22:55 Patient medically screened. sb4 23:04 Differential diagnosis: Anxiety Reaction CHF exacerbation, Chronic Obstructive sb4 Pulmonary Disease pneumonia, pulmonary edema. 09/26 00:12 Independent interpretation of the following test(s) in the Emergency Department X-Ray: sb4 My interpretation is my interpretation of the chest xray images are bilateral pulmonary opacities. given her rales on auscultation, CHF is most likely but will obtain PE study to further differentiate. 00:44 Antibiotic administration: Not indicated, the patient has a suspected viral illness. sb4 Data interpreted: Pulse oximetry: on room air is 97 %. Data reviewed: vital signs, nurses notes, lab test result(s), EKG, radiologic studies, I have discussed the patient's presentation/case with the attending Emergency Department Physician; and as a result, I will admit patient. Consideration of Admission/Observation Patient was admitted/placed on observation. Counseling: I had a detailed discussion with the patient and/or guardian regarding the historical points, exam findings, and any diagnostic results supporting the discharge/admit diagnosis, the presence of at least one elevated blood pressure reading (>120/80) during this emergency department visit, lab results, radiology results, the need for further work-up and treatment in the hospital. ED course: severe sepsis criteria met although source is viral, influenza A. antibiotics will not be given, blood cultures were obtained, Tamiflu was administered . 09/25 22:56 Order name: Basic Metabolic Panel; Complete Time: 23:50 sb4 09/25 22:56 Order name: CBC with Diff; Complete Time: 23:36 sb4 09/25 22:56 Order name: LFT's; Complete Time: 23:50 sb4 09/25 22:56 Order name: Magnesium; Complete Time: 23:50 sb4 09/25 22:56 Order name: NT PRO-BNP; Complete Time: 23:50 sb4 09/25 22:56 Order name: PT-INR; Complete Time: 23:35 sb4 09/25 22:56 Order name: Troponin HS; Complete Time: 23:50 sb4 09/25 22:57 Order name: Blood Culture Adult (2) sb4 09/25 22:57 Order name: Lactate w/ 2H reflex if indic.; Complete Time: 23:50 sb4 09/25 22:58 Order name: SARS RAPID; Complete Time: 23:45 sb4 09/25 22:58 Order name: Flu; Complete Time: 23:45 sb4 09/26 01:58 Order name: Basic Metabolic Panel EDMI 09/26 01:58 Order name: Basic Metabolic Panel EDMI 09/26 01:58 Order name: Basic Metabolic Panel EDMS 09/26 01:58 Order name: Basic Metabolic Panel EDMS 09/26 01:58 Order name: CBC with Automated Diff EDMS 09/26 01:58 Order name: CBC with Automated Diff EDMS 09/26 01:58 Order name: CBC with Automated Diff EDMS 09/26 01:58 Order name: CBC with Automated Diff EDMS 09/26 01:58 Order name: Magnesium EDMS 09/26 01:58 Order name: Magnesium EDMS 09/26 01:58 Order name: Phosphorus EDMS 09/26 01:58 Order name: Phosphorus EDMS 09/26 01:58 Order name: Troponin High Sensitivity EDMS 09/26 01:58 Order name: Troponin High Sensitivity; Complete Time: 06:19 EDMS 09/26 01:58 Order name: Troponin High Sensitivity; Complete Time: 17:00 EDMS 09/26 01:58 Order name: Troponin High Sensitivity; Complete Time: 17:00 EDMS 09/26 04:37 Order name: Lactate Sepsis 2 HR Follow-up; Complete Time: 06:19 EDMS 09/26 07:50 Order name: Glucose, Ancillary Testing; Complete Time: 17:00 EDMS 09/26 12:01 Order name: Glucose, Ancillary Testing; Complete Time: 17:00 EDMS 09/25 22:56 Order name: XRAY Chest (1 view) sb4 09/25 23:55 Order name: Chest For PE Angio CT sb4 09/25 22:56 Order name: EKG; Complete Time: 22:56 sb4 09/25 22:56 Order name: Cardiac monitoring; Complete Time: 22:57 sb4 09/25 22:56 Order name: EKG - Nurse/Tech; Complete Time: 23:03 sb4 09/25 22:56 Order name: IV Saline Lock; Complete Time: 22:57 sb4 09/25 22:56 Order name: Labs collected and sent; Complete Time: 22:57 sb4 09/25 22:56 Order name: O2 Per Protocol; Complete Time: 22:57 sb4 09/25 22:56 Order name: O2 Sat Monitoring; Complete Time: 22:57 sb4 EC/09 23:03 Rate is 103 beats/min. Rhythm is regular, Sinus tachycardia. MO interval is normal at sb4 134 msec. QRS interval is normal at 88 msec. QT interval is normal at 362 msec. No Q waves. T waves are Normal. No ST changes noted. Clinical impression: Normal ECG and No evidence of ischemia. Interpreted by me. Reviewed by me. Administered Medications: 23:05 Drug: DuoNeb Nebulize (3:1) (2.5 mg - 0.5 mg) 3 ml Nebulizer once Route: Nebulizer; tm6 23:05 Drug: Ondansetron IVP 4 mg IVP once; over 2 minutes Route: IVP; Site: right wrist; tm6 09/26 00:31 Drug: Oseltamivir PO 75 mg PO once Route: PO; tm6 00:31 Drug: morphine IVP or IV 4 mg IVP once over 4 mins Route: IVP; Infused Over: 4 mins; tm6 Site: right wrist; 01:05 Drug: Furosemide IVP 20 mg IVP once; give over 2 minutes Route: IVP; Site: right wrist; tm6 Disposition: 05:14 I was immediately available on-site in the Emergency Department for consultation in the ms3 care of the patient. Disposition Summary: 09/27/23 00:46 Hospitalization Ordered Notes: Hospitalization Status: Inpatient Admission sb4 Provider: Jay Rizvi sb4 Condition: Fair sb4 Problem: an acute exacerbation sb4 Symptoms: are unchanged sb4 Bed/Room Type: Standard sb4 Location: Telemetry/MedSurg (Inpatient)(09/27/23 13:14) eb Room Assignment: 417(09/27/23 13:14) eb Diagnosis - Influenza due to identified novel influenza A virus with other respiratory sb4 manifestations - Acute on chronic systolic (congestive) heart failure sb4 Forms: - Medication Reconciliation Form sb4 - SBAR form sb4 - Leadership Thank You Letter sb4 Signatures: Dispatcher [employer] EDMS Sabrina Baum RN RN Radha Fenton eb Norbert Fisher DO DO ms3 Ayanna Willis RN RN Mariola Narvaez PA-C PA-C sb4 Makenna Kirk rv1 Tawanda Shaw RN RN tm6 Corrections: (The following items were deleted from the chart) 00:52 00:46 Acute systolic (congestive) heart failure sb4 sb4 04:23 00:46 Telemetry/MedSurg (Inpatient) sb4 rv1 04:23 00:46 sb4 rv1 11:37 04:23 [facility] ER HOLD rv1 eb 11:37 04:23 ERHOLD- rv1 eb 12:36 11:37 Telemetry/MedSurg (Inpatient) eb hb 12:36 11:37 222 eb hb 12:39 12:36 hb ko1 13:14 12:36 [facility] ER HOLD hb eb 13:14 12:39 ERHOLD- ko1 eb
[2023-09-27] MEDS ORDERED: FUROSEMIDE 20 MG/ 2ML VIAL ONE (00:56)
--- NOTE | 2023-09-27 01:51 | P.HP ---
Certification for Inpatient Patient admitted to: Observation With expected LOS: <2 Midnights Practitioner: I am a practitioner with admitting privileges, knowledge of patient current condition, hospital course, and medical plan of care. Services: Services provided to patient in accordance with Admission requirements found in Title 42 Section 412.3 of the Code of Federal Regulations Patient History Date of Service: 09/27/23 Reason for admission: Worsening shortness of breath, CHF exacerbation. History of Present Illness: 53-year-old female patient with medical history significant for COPD, hypertension, hyperlipidemia, history of morbid obesity was evaluated for episode of worsening shortness of breath. She reported shortness of breath and lower extremity swelling for a couple of days. No chest pain, fever, chills, cough productive of sputum reported. In the ED she was found to have significant reduction in air entry and elevated BNP and she was thought to be in CHF exacerbation. She was admitted for IV diuresis for volume management. Allergies levetiracetam [From [facility]] Allergy (Verified 09/20/23 03:53) Anaphylaxis Green tea Allergy (Mild, Uncoded 09/20/23 03:53) seizures Home Medications: Divalproex Sodium [Depakote] 250 mg PO BID 01/15/23 Fluticasone/Umeclidin/Vilanter [Trelegy Ellipta 100-62.5-25] 1 each IH DAILY 30 Days #30 aero 05/04/23 Aspirin [Roxanne Chewable Aspirin] 81 mg PO DAILY #30 tab.chew 05/05/23 Furosemide [Lasix*] 40 mg PO DAILY tab 05/19/23 Metoprolol Tartrate [Lopressor*] 25 mg PO BID 6AM 6PM tab 05/19/23 Nitroglycerin [Nitrostat*] 0.4 mg SL UD PRN tab 05/19/23 Codeine/APAP [Tylenol #3*] 1 tab PO Q6HP PRN 09/19/23 Arformoterol Tartrate [Brovana] 15 mcg NEB BIDRESP #60 vial.neb 09/22/23 Ipratropium Neb [Atrovent*] 0.5 mg NEB Q2YVCBW #60 amp 09/22/23 Nebulizer 1 each MC DAILY #1 ea 09/22/23 Nebulizer Accessories [Aeroneb Go] 1 each NEB DAILY #1 ea 09/22/23 clonazePAM [Klonopin] 0.5 mg PO Q8HP #40 tab 09/22/23 predniSONE [Prednisone*] 20 mg PO BIDPC #20 tab 09/22/23 Hydrocodone 10/APAP 325 [[place] 10/325] 1 tab PO Q6H PRN #30 tab 09/23/23 - Past Medical/Surgical History Diabetic: No -: COPD -: Hypertension -: migraines -: Depression with anxiety -: Pancreatitis -: Coronary artery disease-prior myocardial infarction -: Diverticulitis -: Seizure disorder -: Herniated back disc -: Diverticulitis -: Herniated back disc -: history of seizures -: 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 -: cholecystectomy -: 5 hand surgeries -: tonsilectomy Psychosocial/ Personal History: Lives at home with her boyfriend - Family History Father -: Hypertension, Other (see notes) Notes: No premature coronary disease Mother -: Heart disease, Hypertension, GI disease, Diabetes, Liver disease, Kidney disease - Social History Alcohol use: Yes CD- Drugs: Yes Caffeine use: No Review of Systems General: Malaise Eyes: Unremarkable ENT: Unremarkable Respiratory: Unremarkable Cardiovascular: Orthopnea, Paroxysmal Noc. Dyspnea, Edema Gastrointestinal: Unremarkable Genitourinary: Unremarkable Musculoskeletal: Unremarkable Integumentary: Unremarkable Neurological: Unremarkable Lymphatics: Unremarkable Physical Examination - Physical Exam General: Alert, Oriented x3, Mild distress HEENT: Atraumatic Neck: Supple Respiratory: Diminished Cardiovascular: Regular rate/rhythm, Normal S1 S2 Gastrointestinal: Soft and benign Musculoskeletal: Swelling Neurological: Normal speech, Normal strength at 5/5 x4 extr - Studies Laboratory Data (last 24 hrs) 09/26/23 09/26/23 09/26/23 23:05 23:05 23:05 WBC 10.10 Hgb 9.3 L Hct 28.7 L Plt Count 354 PT 14.9 H INR 1.37 Sodium 137 Potassium 3.6 BUN 23 H Creatinine 0.91 Glucose 129 H Magnesium 2.4 Total Bilirubin 0.4 AST 34 ALT 88 H Alkaline Phosphatase 224 H Microbiology Data (last 24 hrs): 09/26/23 23:05 Nasopharnyx Influenza Type A Antigen Screen - Final 09/26/23 23:05 Nasopharnyx Influenza Type B Antigen Screen - Final Assessment and Plan - Plan CHF exacerbation: Present clinical presentation is concerning. Continue IV diuresis with Lasix 40 mg every 8 monitor input and output closely. Will continue to follow follow volume status closely. Cardiology to evaluate further management recommendation. COPD: Continue inhalational therapy as prescribed outpatient. Hypertension: We will monitor vital signs per unit protocol and continue outpatient antihypertensive medications. Morbid obesity: We will continue to encourage weight loss. Hyperlipidemia: We will continue statin therapy. Anemia: Hemoglobin is low at 9.2. Will obtain iron studies and replete iron stores as needed. Diabetes type 2: We will continue carb restricted diet and sliding scale insulin for glucose control. Will monitor blood sugar ACHS. Prophylaxis: Lovenox for DVT prophylaxis. CODE STATUS: Full code Disposition: We will treat her CHF exacerbation and she will be discharged once deemed clinically stable. - Advance Directives Does patient have a Living Will: No Does patient have a Durable POA for Healthcare: No
[2023-09-27] MEDS ORDERED: ACETAMINOPHEN 325 MG TABLET PO PRN (01:53)
[2023-09-27] MEDS ORDERED: ONDANSETRON 4 MG/2 ML VIAL ONE ×2 (04:39→09:06)
[2023-09-27] MEDS ORDERED: ACETAMINOPHEN 325 MG TABLET ONE (04:40)
[2023-09-27 04:44] VITALS: BMI 31.8
[2023-09-27] MEDS: ONDANSETRON 4 MG/2 ML VIAL IV PRN (04:49)
[2023-09-27] MEDS: MORPHINE 2 MG/ML SYR IV ONE ×2 (04:53→09:30)
[2023-09-27] MEDS ORDERED: MORPHINE 2 MG/ML SYR ONE ×2 (04:54→09:06)
[2023-09-27] MEDS: INSULIN REGULAR (HUMAN) 100 UNIT/ML SQ SCH (07:30)
[2023-09-27] MEDS: FUROSEMIDE 40 MG/4 ML VIAL IV SCH ×2 (09:00→16:02)
[2023-09-27] MEDS: ENOXAPARIN 40 MG/0.4 ML SQ SCH (09:00)
[2023-09-27] MEDS ORDERED: FUROSEMIDE 40 MG/4 ML VIAL ONE (09:37)
[2023-09-27] MEDS ORDERED: ENOXAPARIN 40 MG/0.4 ML SQ ONE (09:37)
[2023-09-27] MEDS ORDERED: METHYLPREDNISOLONE 40 MG INJ ONE (10:41)
[2023-09-27] MEDS: METHYLPREDNISOLONE 125 MG INJ IV SCH (10:45)
[2023-09-27] MEDS: SPIRONOLACTONE 25 MG TABLET PO SCH (11:00)
[2023-09-27 14:25] VITALS: O2SAT 99
[2023-09-27] MEDS ORDERED: NITROGLYCERIN 0.4 MG/TAB SL PRN (15:16)
--- NOTE | 2023-09-27 15:20 | P.PN ---
Subjective Date of Service: 09/27/23 Chief Complaint: Worsening shortness of breath, CHF exacerbation. shortness of breath with exertion, presents with fluid volume overload, acute on chronic heart failure, she is on lasix, spirondactone presented after midnight, prn analgesics added for chest pain, and home meds restarted. - Physical Exam General: Alert, Oriented x3, Mild distress HEENT: Atraumatic Neck: Supple Respiratory: Diminished Cardiovascular: Regular rate/rhythm, Normal S1 S2 Gastrointestinal: Soft and benign Musculoskeletal: Swelling Neurological: Normal speech, Normal strength at 5/5 x4 extr Physical Examination - Vital Signs Temperature: 98 F Blood Pressure: 113/67 Pulse: 99 Respirations: 21 Pulse Ox (%): 99 - Studies Laboratory Data (last 24 hrs) 09/26/23 09/26/23 09/26/23 23:05 23:05 23:05 WBC 10.10 Hgb 9.3 L Hct 28.7 L Plt Count 354 PT 14.9 H INR 1.37 Sodium 137 Potassium 3.6 BUN 23 H Creatinine 0.91 Glucose 129 H Magnesium 2.4 Total Bilirubin 0.4 AST 34 ALT 88 H Alkaline Phosphatase 224 H Microbiology Data (last 24 hrs): 09/26/23 23:05 Nasopharnyx Influenza Type A Antigen Screen - Final 09/26/23 23:05 Nasopharnyx Influenza Type B Antigen Screen - Final Assessment And Plan - Plan Assessment and Plan - Plan CHF exacerbation: Present clinical presentation is concerning. Continue IV diuresis with Lasix 40 mg every 8 monitor input and output closely. Will continue to follow follow volume status closely. Cardiology to evaluate further management recommendation. COPD: Continue inhalational therapy as prescribed outpatient. Hypertension: We will monitor vital signs per unit protocol and continue outpatient antihypertensive medications. Morbid obesity: We will continue to encourage weight loss. Hyperlipidemia: We will continue statin therapy. Anemia: Hemoglobin is low at 9.2. Will obtain iron studies and replete iron stores as needed. Diabetes type 2: We will continue carb restricted diet and sliding scale insulin for glucose control. Will monitor blood sugar ACHS. Prophylaxis: Lovenox for DVT prophylaxis. CODE STATUS: Full code Disposition: We will treat her CHF exacerbation and she will be discharged once deemed clinically stable. Discharge Plan: Home - Code Status/Comfort Care Code Status: Full Code Critical Care: No Time Spent Managing PTS Care (In Minutes): 35
[2023-09-27] MEDS: HYDROMORPHONE HCL 0.5 MG/0.5 ML INJ IV PRN (16:02)
[2023-09-27] MEDS: METOPROLOL TAR 25 MG TAB PO SCH (17:17)
[2023-09-27] MEDS: DIVALPROEX DR 250 MG TAB PO SCH (19:58)
[2023-09-27] MEDS: ARFORMOTEROL TARTRATE 15 MCG/2 ML VIAL.NEB NEB SCH (20:40)
[2023-09-27] MEDS: IPRATROPIUM BROM 0.5MG/2.5ML NEB SCH (20:40)
[2023-09-27] MEDS: clonazePAM 0.5 MG TAB PO SCH (21:37)
[2023-09-28] MEDS: PROMETHAZINE INJ 25 MG/ML AMP IV ONE (04:34)
[2023-09-28 06:48] LABS: Absolute Lymphocytes (CBC) 0.6 K/uL (0.7-4.9); Basophils % 0.1 % (0-1.3); Hematocrit 27.4 % (36.0-45.0); Hemoglobin 8.8 g/dL (12.0-15.0); Lymphocytes % 12.2 % (15.3-44.8); MCV 81.2 fL (80-100); MPV 7.4 fL (7.6-11.3); Platelets 280 thou/uL (152-406); RBC Red Blood Cell Count 3.38 M/uL (3.86-4.86)
[2023-09-28 07:11] LABS: Anion Gap 8.9 mEq/L (5.0-15.0); Magnesium 2.4 mg/dL (1.6-2.4); Phosphorus 4.2 mg/dL (2.5-4.9); Potassium 3.9 mEq/L (3.5-5.1)
[2023-09-28] MEDS: **PT MED**Fluticasone/Umeclidin/Vilanter [Trelegy Ellipta 100-62.5-25] Blst.W.Dev IH SCH (09:00)
[2023-09-28] MEDS: ASPIRIN 81 MG CHEWABLE TABLET PO SCH (09:45)
--- NOTE | 2023-09-28 11:01 | RAD REPORT ---
EXAM DESCRIPTION: CT - Chest For Pe Angio - 09/27/2023 6:23 am CLINICAL HISTORY: The patient is 53 years old and is Female; Chest pain;Cough;Dyspnea TECHNIQUE: Axial computed tomographic angiography images of the chest with intravenous contrast. T his CT exam was performed using one or more of the following dose reduction techniques: automated e xposure control, adjustment of the mA and/or kV according to patient size, and/or use of iterative re construction technique. MIP reconstructed images were created and reviewed. Oblique reformatted images were created and reviewed. DLP: 722 mGy*cm COMPARISON: Chest radiograph of the same day. FINDINGS: PULMONARY ARTERIES: Unremarkable. No pulmonary embolism. AORTA: No acute findings. No thoracic aortic aneurysm. LUNGS: Interlobular septal thickening. No focal consolidation. Multiple right upper lobe nodules measuring 1 cm. PLEURAL SPACE: Unremarkable. No significant effusion. No pneumothorax. HEART: Cardiomegaly. Coronary calcifications. No significant pericardial effusion. No evidence of RV dysfunction. BONES/JOINTS: No acute fracture. No dislocation. SOFT TISSUES: Unremarkable. LYMPH NODES: Unremarkable. No enlarged lymph nodes. LIVER: Hepatic steatosis. ADRENALS: Left adrenal mass measuring 2.7 cm with attenuation values of -8 Hounsfield units. IMPRESSION: 1. No pulmonary embolism. 2. Cardiomegaly. Coronary calcifications. Mild interstitial edema. 3. Multiple right upper lobe nodules measuring 1 cm. Per Fleischner Society Guidelines, consider a non-contrast Chest CT at 3 months, a PET/CT, or tissue sampling. These guidelines do not apply to immunocompromised patients and patients with cancer. Follow up in pa tients with significant comorbidities as clinically warranted. For lung cancer screening, adhere to L kareem-RADS guidelines. Reference: Radiology. 2017; 284(1):228-43. 4. Left adrenal mass measuring 2.7 cm with attenuation values of -8 Hounsfield units. No follow-up imaging is recommended. JACR 2017 Feb; 14(8):1038-44, JCAT 2016 Sep-Oct; 40(2):194-200, Urol J spring; 3(2):71-4. 5. Hepatic steatosis. Electronically signed by: Gasper Bates DO 09/27/2023 01:19 AM ORCHID WORKER Due to temporary technical issues with the PACS/Fluency reporting system, reports are being signed by the in house radiologist without review as a courtesy to ensure prompt reporting. The interpreting r adiologist is fully responsible for the content of the report.
--- NOTE | 2023-09-28 11:54 | RAD REPORT ---
EXAM DESCRIPTION: RAD - Chest Single View - 09/26/2023 11:13 pm ADDENDUM #1 Addendum comparison: 08/31/2023. Electronically signed by: Zeinab Alas MD 09/27/2023 12:09 AM PILOT SUPERVISOR End of Addendum EXAM: Chest Single View CLINICAL HISTORY: 53-year-old female with chest pain. TECHNIQUE: Single view, AP portable chest was obtained. COMPARISON: None. FINDINGS: Enlarged Unremarkable cardiac and mediastinal silhouette. Heart size is enlarged. Low lung volumes with interstitial prominence raising the possibility of vascular crowding versus mil d pulmonary vascular congestion versus viral/atypical infection. . No pneumothorax or large pleural effusions. The visualized bones are within normal limits. IMPRESSION: Low lung volumes with interstitial prominence raising the possibility of vascular crowdi ng versus mild pulmonary vascular congestion versus viral/atypical infection. Electronically signed by: Zeinab Alas MD 09/26/2023 11:45 PM PILOT SUPERVISOR Due to temporary technical issues with the PACS/Fluency reporting system, reports are being signed by the in house radiologist without review as a courtesy to ensure prompt reporting. The interpreting r adiologist is fully responsible for the content of the report.
[2023-09-28] MEDS: HYDROCODONE/APAP 10/325 TAB PO PRN (12:52)
--- NOTE | 2023-09-28 12:52 | ECHO ---
HEIGHT: 5 ft 3 in WEIGHT: 180 lb 0 oz DATE OF STUDY: 09/28/[address]: Eileen Mason LAMP DEVELOPERJimenez 2-DIMENSIONAL: YES M.MODE: YES DOPPLER: YES COLOR FLOW: YES TDS: NO PORTABLE: YES DEFINITY: NO BUBBLE STUDY: NO DIAGNOSIS: ACUTE HEART FAILURE CARDIAC HISTORY: CATHERIZATION: SURGERY: PROSTHETIC VALVE: PACEMAKER: MEASUREMENTS (cm) DIASTOLIC (NORMALS) SYSTOLIC (NORMALS) IVSd 1.2 (0.6-1.2) LA Diam 4.3 (1.9-4.0) LVEF 35-40% LVIDd 4.6 (3.5-5.7) LVIDs 4.2 (2.0-3.5) %FS 9% LVPWd 1.1 (0.6-1.2) Ao Diam 2.8 (2.0-3.7) 2 DIMENSIONAL ASSESSMENT: RIGHT ATRIUM: NORMAL LEFT ATRIUM: SEVERELY ENLARGED RIGHT VENTRICLE: NORMAL LEFT VENTRICLE: MILDLY DILATED TRICUSPID VALVE: MODERATE TRICUSPID REGURGITATION MITRAL VALVE: NORMAL MILD MITRAL REGURGITATION PULMONIC VALVE: NORMAL AORTIC VALVE: NORMAL, MILD AORTIC REGURGITATION PERICARDIAL EFFUSION: NONE AORTIC ROOT: NORMAL LEFT VENTRICULAR WALL MOTION: MODERATE GLOBAL HYPOKINESIS. DOPPLER/COLOR FLOW: GRADE II DIASTOLIC DYSFUNCTION. COMMENTS: MODERATE REDUCED LEFT VENTRICULAR FUNCTION, EJECTION FRACTION 35-40%, MODERATE GLOBAL HYPOKINESIS. GRADE II DIASTOLIC DYSFUNCTION. SEVERELY ENLARGED LEFT ATRIUM. MODERATE TRICUSPID REGURGITATION, RIGHT VENTRICULAR SYSTOLIC PRESSURE 50-55mmHg. TECHNOLOGIST: JAZMINE HELLER
--- NOTE | 2023-09-28 13:03 | P.CNS ---
Date of Consult: 09/28/23 Chief Complaint: Worsening shortness of breath, CHF exacerbation. History of Present Illness: patient with PMH of systolic heart failure, non ischemic, moderate reduced ejection fraction, presented with worsening PETERSON and bilateral lower extremity edema, she denies having any other symptoms. Allergies levetiracetam [From Keppra] Allergy (Verified 09/20/23 03:53) Anaphylaxis Green tea Allergy (Mild, Uncoded 09/20/23 03:53) seizures Home Medications: Divalproex Sodium [Depakote] 250 mg PO BID 01/15/23 Fluticasone/Umeclidin/Vilanter [Trelegy Ellipta 100-62.5-25] 1 each IH DAILY 30 Days #30 aero 05/04/23 Aspirin [Roxanne Chewable Aspirin] 81 mg PO DAILY #30 tab.chew 05/05/23 Furosemide [Lasix*] 40 mg PO DAILY tab 05/19/23 Metoprolol Tartrate [Lopressor*] 25 mg PO BID 6AM 6PM tab 05/19/23 Nitroglycerin [Nitrostat*] 0.4 mg SL UD PRN tab 05/19/23 Codeine/APAP [Tylenol #3*] 1 tab PO Q6HP PRN 09/19/23 Arformoterol Tartrate [Brovana] 15 mcg NEB BIDRESP #60 vial.neb 09/22/23 Ipratropium Neb [Atrovent*] 0.5 mg NEB [id number] #60 amp 09/22/23 Nebulizer Accessories [Aeroneb Go] 1 each NEB DAILY #1 ea 09/22/23 clonazePAM [Klonopin] 0.5 mg PO Q8HP #40 tab 09/22/23 Hydrocodone 10/APAP 325 [[place] 10/325] 1 tab PO Q6H PRN #30 tab 09/23/23 - Past Medical/Surgical History Diabetic: No -: COPD -: Hypertension -: migraines -: Depression with anxiety -: Pancreatitis -: Coronary artery disease-prior myocardial infarction -: Diverticulitis -: Seizure disorder -: Herniated back disc -: Diverticulitis -: Herniated back disc -: history of seizures -: 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 -: cholecystectomy -: 5 hand surgeries -: tonsilectomy Psychosocial/ Personal History: Lives at home with her boyfriend - Family History Father Medical History: Hypertension, Other (see notes) Notes: No premature coronary disease Mother Medical History: Heart disease, Hypertension, GI disease, Diabetes, Liver disease, Kidney disease - Social History Smoking Status: Current every day smoker Alcohol use: Yes CD- Drugs: Yes Caffeine use: No Place of Residence: Home Review of Systems 10-point ROS is otherwise unremarkable Physical Examination Temp Pulse Resp BP Pulse Ox 97.8 F 87 16 131/86 98 09/28/23 08:00 09/28/23 08:00 09/28/23 12:52 09/28/23 08:00 09/28/23 12:52 General: Alert, Oriented x3 HEENT: Atraumatic Neck: Supple Respiratory: Crackles/rales Cardiovascular: Normal S1 S2, Edema Gastrointestinal: Normal bowel sounds - Problems (1) Acute on chronic combined systolic and diastolic heart failure Current Visit: Yes Status: Acute Plan: agree with IV Lasix 40 mg BID Continue Spirnolactone 25 mg po BID D/C Metoprolol Start Coreg 12.5 mg po BID monitor input and output correct electrolytes. patient had a recent coronary angiogram that shown mild non obstructive CAD.
--- NOTE | 2023-09-28 13:51 | P.PN ---
Date of Service: 09/28/23 Patient History Date of Service: 09/27/23 Reason for admission: Worsening shortness of breath, CHF exacerbation. History of Present Illness: 53-year-old female patient with medical history significant for COPD, hypertension, hyperlipidemia, history of morbid obesity was evaluated for episode of worsening shortness of breath. She reported shortness of breath and lower extremity swelling for a couple of days. No chest pain, fever, chills, cough productive of sputum reported. In the ED she was found to have significant reduction in air entry and elevated BNP and she was thought to be in CHF exacerbation. She was admitted for IV diuresis for volume management 09/28/23 + diuresis, states she is feeling a little better with the chest pain but has leg cramping Vital signs: Reviewed ECHO results from this am: 2 DIMENSIONAL ASSESSMENT: RIGHT ATRIUM: NORMAL LEFT ATRIUM: SEVERELY ENLARGED RIGHT VENTRICLE: NORMAL LEFT VENTRICLE: MILDLY DILATED TRICUSPID VALVE: MODERATE TRICUSPID REGURGITATION MITRAL VALVE: NORMAL MILD MITRAL REGURGITATION PULMONIC VALVE: NORMAL AORTIC VALVE: NORMAL, MILD AORTIC REGURGITATION PERICARDIAL EFFUSION: NONE AORTIC ROOT: NORMAL LEFT VENTRICULAR WALL MOTION: MODERATE GLOBAL HYPOKINESIS. DOPPLER/COLOR FLOW: GRADE II DIASTOLIC DYSFUNCTION. COMMENTS: MODERATE REDUCED LEFT VENTRICULAR FUNCTION, EJECTION FRACTION 35-40%, MODERATE GLOBAL HYPOKINESIS. GRADE II DIASTOLIC DYSFUNCTION. SEVERELY ENLARGED LEFT ATRIUM. MODERATE TRICUSPID REGURGITATION, RIGHT VENTRICULAR SYSTOLIC PRESSURE 50- 55mmHg. Physical Examination - Physical Exam General: Alert, Oriented x3, Mild distress HEENT: Atraumatic Neck: Supple Respiratory: Diminished Cardiovascular: Regular rate/rhythm, Normal S1 S2 Gastrointestinal: Soft and benign Musculoskeletal: Swelling Neurological: Normal speech, Normal strength at 5/5 x4 extr - Problems (1) Acute on chronic combined systolic and diastolic heart failure (HFrEF) Current Visit: Yes Status: Acute Plan: IV Lasix 40 mg BID Continue Spirnolactone 25 mg po BID D/C Metoprolol per Cardiology Start Coreg 12.5 mg po BID monitor input and output correct electrolytes. patient had a recent coronary angiogram that shown mild non obstructive CAD.
[2023-09-28] MEDS: MORPHINE 2 MG/ML SYR IV ONE (20:34)
[2023-09-28] MEDS ORDERED: CODEINE 30MG/APAP 300MG TAB PO PRN (22:12)
[2023-09-28] MEDS: CODEINE 30MG/APAP 300MG TAB PO PRN (23:48)
[2023-09-29 06:29] VITALS: TEMP 96.9
[2023-09-29 07:39] LABS: Absolute Lymphocytes (CBC) 0.7 K/uL (0.7-4.9); Basophils % 0.1 % (0-1.3); Hematocrit 28.4 % (36.0-45.0); Hemoglobin 9.2 g/dL (12.0-15.0); Lymphocytes % 8.9 % (15.3-44.8); MCV 80.6 fL (80-100); MPV 7.4 fL (7.6-11.3); Platelets 308 thou/uL (152-406); RBC Red Blood Cell Count 3.53 M/uL (3.86-4.86)
[2023-09-29 07:49] LABS: Albumin 3.2 g/dL (3.4-5.0); Albumin/Globulin Ratio 0.9 (1.1-1.8); Anion Gap 8.9 mEq/L (5.0-15.0); Bilirubin Direct 0.2 mg/dL (0-0.2); Bilirubin Indirect, Calculated 0.1 mg/dL (0.2-0.8); Bilirubin Total 0.3 mg/dL (0.2-1.0); Globulin 3.4 g/dL (2.3-3.5); Magnesium 2.3 mg/dL (1.6-2.4); Potassium 3.9 mEq/L (3.5-5.1); Protein, Total 6.6 g/dL (6.4-8.2)
--- NOTE | 2023-09-29 07:58 | RAD REPORT ---
EXAM DESCRIPTION: L[facility] Single View09/29/2023 4:47 am CLINICAL HISTORY: Shortness of breath COMPARISON: September 27, 2023 FINDINGS: Mild bilateral pulmonary opacities have mostly resolved. Heart remains enlarged IMPRESSION: Mild interstitial pulmonary edema has mostly resolved
--- NOTE | 2023-09-29 09:09 | P.DS ---
Admission Date: 09/27/23 Discharge Date: 09/29/23 Disposition: ROUTINE DISCHARGE Discharge Condition: GOOD Reason for Admission: Worsening shortness of breath, CHF exacerbation. Consultations: Cardiology Brief History of Present Illness: 53-year-old female patient with medical history significant for COPD, hypertension, hyperlipidemia, history of morbid obesity was evaluated for episode of worsening shortness of breath. She reported shortness of breath and lower extremity swelling for a couple of days. No chest pain, fever, chills, cough productive of sputum reported. In the ED she was found to have significant reduction in air entry and elevated BNP and she was thought to be in CHF exacerbation. She was admitted for IV diuresis for volume management. ECHO showed moderately reduced EF. Hospital Course: Ms. Coon has diuresed well. She feels significantly less short of breath. Repeat CXR this am shows resolution of interstitial edema. Edema to lower extremities has resolved. Per cardiology she will stop metoprolol and begin Coreg. Continue Lasix and add Spironolactone. Vital Signs/Physical Exam: Temp Pulse Resp BP Pulse Ox 96.9 F 97 H 18 120/70 96 09/29/23 04:00 09/29/23 05:46 09/29/23 04:00 09/29/23 05:46 09/29/23 04:00 General: Alert, In no apparent distress, Oriented x3 HEENT: Atraumatic, Normocephalic, PERRLA Neck: Supple, 2+ carotid pulse no bruit Respiratory: Normal air movement, Expiratory wheezes Cardiovascular: Normal pulses, Regular rate/rhythm Capillary refill: <2 Seconds Gastrointestinal: Soft and benign Musculoskeletal: No clubbing, No swelling Integumentary: No rashes Neurological: Normal speech, Normal tone Lymphatics: No axilla or inguinal lymphadenopathy External genitalia: Deferred Rectal: Deferred Laboratory Data at Discharge: WBC 7.80 thou/uL (4.3-10.9) 09/29/23 07:01 Hgb 9.2 g/dL (12.0-15.0) L 09/29/23 07:01 Hct 28.4 % (36.0-45.0) L 09/29/23 07:01 Plt Count 308 thou/uL (152-406) 09/29/23 07:01 PT 14.9 SECONDS (9.5-12.5) H 09/26/23 23:05 INR 1.37 09/26/23 23:05 Sodium 136 mEq/L (136-145) 09/29/23 07:01 Potassium 3.9 mEq/L (3.5-5.1) 09/29/23 07:01 BUN 22 mg/dL (7-18) H 09/29/23 07:01 Creatinine 0.91 mg/dL (0.55-1.02) 09/29/23 07:01 Glucose 163 mg/dL (74-106) H 09/29/23 07:01 Phosphorus 4.2 mg/dL (2.5-4.9) 09/28/23 05:39 Magnesium 2.3 mg/dL (1.6-2.4) 09/29/23 07:01 Total Bilirubin 0.3 mg/dL (0.2-1.0) 09/29/23 07:01 AST 19 U/L (15-37) 09/29/23 07:01 ALT 64 U/L (13-56) H 09/29/23 07:01 Alkaline Phosphatase 177 U/L (45-117) H 09/29/23 07:01 Home Medications: Divalproex Sodium [Depakote] 250 mg PO BID 01/15/23 Fluticasone/Umeclidin/Vilanter [Trelegy Ellipta 100-62.5-25] 1 each DAILY 30 Days #30 aero 05/04/23 Furosemide [Lasix*] 40 mg PO DAILY tab 05/19/23 Nitroglycerin [Nitrostat*] 0.4 mg SL UD PRN tab 05/19/23 Ipratropium Neb [Atrovent*] 0.5 mg NEB [id number] #60 amp 09/22/23 Blood Sugar Diagnostic [Test Strips] 1 each MC DAILY #100 strip 09/29/23 Blood-Glucose Meter [Glucocard Shine Connex Meter] 1 each MC DAILY #1 ea 09/29/23 Codeine/APAP [Tylenol #3*] 2 tab PO Q8H PRN #40 tab 09/29/23 Lancets [Glucocom Lancets] 1 each MC BID #100 ea 09/29/23 Metformin HCl 500 mg PO DAILY #30 tab 09/29/23 Spironolactone 25 mg PO BID #60 tab 09/29/23 carvediloL [Carvedilol] 12.5 mg PO BID #60 tab 09/29/23 dexAMETHasone [Decadron*] 4 mg PO BID #11 tab 09/29/23 New Medications: carvediloL [Carvedilol] 12.5 mg PO BID #60 tab dexAMETHasone [Decadron*] 4 mg PO BID #11 tab Blood-Glucose Meter [Glucocard Shine Connex Meter] 1 each MC DAILY #1 ea Lancets [Glucocom Lancets] 1 each MC BID #100 ea Metformin HCl 500 mg PO DAILY #30 tab Spironolactone 25 mg PO BID #60 tab Blood Sugar Diagnostic [Test Strips] 1 each MC DAILY #100 strip Codeine/APAP [Tylenol #3*] 2 tab PO Q8H PRN #40 tab PRN Reason: Pain Scale 5-7 (Moderate) Physician Discharge Instructions: Okay to DC IV and DC home Follow-up with primary care provider in 1 to 2 weeks Follow-up with Cardiology in 1 to 2-week Follow-up with Neurology in 1 to 2-week Follow-up with Pulmonary in 1 to 2-week Return to the ER for worsening symptoms Please call Dr. Fry at [phone] if any questions regarding hospital stay Please call nursing station at [phone] if any nursing or medication questions Diet: ADA Activity: Ad geovanna Followup: Deandre Moore MD [ACTIVE - CAN ADMIT] - Javier Ireland MD [ASSOCIATE-ACTIVE - CAN ADMIT] - NONE,NONE [Primary Care Provider] - Saad Leavitt MD [ACTIVE - CAN ADMIT] -
[2023-09-29 09:25] VITALS: BP 147/97
[2023-09-29 09:47] LABS: Anisocytosis 1+; Blood Morphology Comment NOTED (NOT SEEN); Platelet Estimate ADEQ; Polychromasia SLIGHT; White Blood Cell Scan OK (OK)
== END 2023-09-29 12:14 | disposition home or self-care (01) ==
LOC: ER 22:52 → ERHOLD 09-27 01:51 → 4TH 09-27 13:57
PROVIDERS: ADMIT Internal Medicine Nephrology; ATTEND Hospitalist
DX: I50.43 Acute on chronic combined systolic (congestive) and diastolic (congestive) heart failure (principal); J09.X2 Influenza due to identified novel influenza A virus with other respiratory manifestations; J44.9 Chronic obstructive pulmonary disease, unspecified; I10 Essential (primary) hypertension; E66.01 Morbid (severe) obesity due to excess calories; Z68.31 Body mass index [BMI] 31.0-31.9, adult; Z71.3 Dietary counseling and surveillance; E78.5 Hyperlipidemia, unspecified; E11.9 Type 2 diabetes mellitus without complications; E87.70 Fluid overload, unspecified
CPT/HCPCS: 93306; 87040 ×2; 85025 ×3; 80048 ×3; 36415 ×3; 83735 ×3; 84100; 85610; 82947 ×9; 80076 ×2; 83605 ×2; 83036; 84484 ×4; 83540; 82024; 82088; 83880 ×2; 84244; 87804 ×2; 71275; 71045 ×2; 94640 ×8; 96375; 96374; 99285; 87811; Q9967; J2550; J1815 ×3; J1940 ×6; J7613; J7644 ×8; J1650 ×3; J2270 ×3; J1170 ×6; J7605 ×4; J2930 ×4; J2405 ×6; J2920; G0378

== ENCOUNTER 2023-10-06 18:33 | Emergency (ER) | payer OTHER, SELFPAY ==
--- OUTSIDE RECORDS SUMMARY | 2023-10-06 19:01 | XMS REPORT | Continuity of Care Document ---
Author Name Unknown Address [address] [facility]. [address] [place] [address] [facility] Address [address] [facility] [address] [place] [address] Care Team Providers Care Vat Tender Name Role Phone Aneta Silva Primary Care Physician PANKAJ OBREGON Attending Clinician Un available AYDEE GO Attending Clinician Unavailable CARA BURGESS Attending Clinician UnavailADAM Moreno Attending Clinician Unavailable THOMAS LOZOYA Attending Clinician Nina MARIAH Quiroga Attending Clinician Unavailable GUSTAVO DELANEY Attending Clinician Unavailable MYLA MIJARES Attending Clinician Unavailable SIDDHARTH STANFORD Attending Clinician Unavailabl SARAI Arellano Attending Clinician Unavaila ble CIDNI, TIFFANY Attending Clinician Unavaila SHY Marie Attending Clinician Unavailable YONATAN LORENZO Attending Clinician Unava radha Loyola MD, London Dixon Attending Clinician Nina lisa Obregon MD, Pankaj Bernal Attending Clinician Selin Fry DO Attending Clinician [phone] Bud ELIZONDO, Selin Attending Clinician [phone] SELIN FERRER Attending Clinician Unavailable JUANY GREEN Attending Clinician Unavailable DEMETRIUS TOBAR Attending Clinician Unavailab KETAN Armenta Attending Clinician Unavail able Kael EMBOSSING UNIT OPERATOR, Ketan Sanders Attending Clinician [phone] BRIAN BRYAN Attending Clinician Unavailable Brian Bryan DO Attending Clinician [phone] Cara Burgess MD Attending Clinician [phone] Aydee Go MD Attending Clinician [phone] System, Provider Not In Attending Clinician Unav Dallas Allen Attending Clinician [phone] Jose ELIZONDO, Adam Joshi Attending Clinician [phone] Harry Newsome MD Attending Clinician [phone] Rocael ELIZONDO, Antwon Mccrary Attending Clinician + [phone] Yue Bui MD Attending Clinician [phone] Connie Davey MD Attending Clinician [phone] Jasen ELIZONDO, Mariah Attending Clinician [phone] Devora ELIZONDO, Thomas Hopkins Attending Clinician CONNIE DAVEY Attending Clinician UnavailAlfonso Oh Attending Clinician Unavailable Alfonso Lopez Attending Clinician [phone] RITCHIE WARREN Attending Clinician Unavailable Briana ELIZONDO, Ritchie Stoner Attending Clinician [phone] Rk CAMPOS, Shy Stoner Attending Clinician [phone] Reji ELIZONDO, Halima Hummel Attending Clinician [phone] Lucho ELIZONDO, Jen Olivia Attending Clinician [phone] Roxi ELIZONDO, Parrish Reyez Attending Clinici an ROXI, PARRISH CR Attending Clinician Unavaila LORENZA Mariscal Attending Clinician Unavailable Alcon ELIZONDO, Sav Attending Clinician [phone] Essence ELIZONDO, Lorenza Attending Clinician [phone] Corey DUMONT, Maria Teersa Attending Clinician + [phone] CHANTEL BOJORQUEZ Attending Clinician CHANTEL Kelly Attending Clinician Jack Ibrahim MD, Brandyn Otoole Attending Clinician [phone] SELINA MARTINES Attending Clinician Unavailable Sapna Vargas DO Attending Clinician + [phone] Tyrel ELIZONDO, Glory Katz Attending Clinician + Selina Martines MD Attending Clinician [phone] Vaccine, [place] Pedi Attending Clinician U Jose Titus MD Attending Clinician [phone] JOSE PAK Attending Clinician Unavailable NICHELLE VIRK Attending Clinician Unavaila Nichelle Lakhani Attending Clinician [phone] Doctor Unassigned, [place] Attending Clinician U chelsi Nava RN, Miky Attending Clinician Unavailab Fabrice Jarrett Attending Clinician [phone] Lydia Eaton Attending Clinician [phone] Unknown, Attending Attending Clinician Unavailab le UNKNOWN, ATTENDING Attending Clinician Unavailab Anali Berg Attending Clinician [phone] Yehuda Arcos MD Attending Clinician PANKAJ OBREGON Admitting Clinician Un available CARA BURGESS Admitting Clinician Unavailab ADAM Cabrera Admitting Clinician Unavailable MARIAH ALDRIDGE Admitting Clinician Unavailable CONNIE DAVEY Admitting Clinician UnavailAlfonso Oh Admitting Clinician Unavailable RITCHIE WARREN Admitting Clinician Unavailable JEN GELLER Admitting Clinician Unavaila LORENZA Mariscal Admitting Clinician Unavailable Lorenza Lowry MD Admitting Clinician [phone] BRANDYN IBRAHIM Admitting Clinician Unavailable Brandyn Ibrahim MD Admitting Clinician [phone] GLORY ESTEVES Admitting Clinician Unav ailable NICHELLE VIRK Admitting Clinician Unavaila ble Payers Payer Name Policy Type Policy Number Effective Date Expirati on Date Source [facility] [id number] 2023 00:00:00 [employer]BMARK RICARDO [id number] 2023 00:00:00 [facility] COPAY FOCUS 9 [id number] 2023 00:00:00 [facility] [id number] 2023 00:00:00 MEDICAID PENDING PENDING 2022 00:00:00 Problems Condition Name Condition Details Condition Category Status Onset Date Resolution Date Last Treatment Date Treating Clinician Comments Source Depression Depression Disease Active 09-29 00:00: 00 Cynthia gonzalez Anxiety Anxiety Disease Active 09-29 00:00: 00 Cynthia gonzalez CAD (coronary artery disease) CAD (coronary artery disease) Disease Active 09-29 00:00: 00 Cynthia gonzalez COPD (chronic obstructiv e pulmonary disease) (multi HCC) COPD (chronic obstructiv e pulmonary disease) (multi HCC) Disease Active 09-29 00:00: 00 Cynthia gonzalez History of colon polyps History of colon polyps Disease Active 09-29 00:00: 00 Cynthia gonzalez Marijuana use Marijuana use Disease Active 09-29 00:00: 00 Cynthia Erazoa lisa Seizure (multi HCC) Seizure (multi HCC) Disease Active 09-29 00:00: 00 Cynthia gonzalez Tobacco use Tobacco use Disease Active 09-29 00:00: 00 Cynthia gonzalez Type 2 diabetes mellitus with hyperglyce ortega, without long-term current use of insulin (multi HCC) Type 2 diabetes mellitus with hyperglyce ortega, without long-term current use of insulin (multi HCC) Disease Active 09-11 00:00: 00 Cynthia gonzalez CHF (congestiv e heart failure) (multi HCC) CHF (congestiv e heart failure) (multi HCC) Disease Active 09-11 00:00: 00 Cynthia gonzalez Bipolar disorder (multi HCC) Bipolar disorder (multi HCC) Disease Active 09-11 00:00: 00 Cynthia gonzalez Seizure disorder (multi HCC) Seizure disorder (multi HCC) Disease Active 09-11 00:00: 00 Cynthia gonzalez Prediabete s Prediabete s Disease Active 09-11 00:00: 00 Cynthia gonzalez Bilateral leg weakness Bilateral leg weakness Disease Active 2022-07 00:00: 00 [facility] Pneumonia Pneumonia Disease Active 2022-07 00:00: 00 [facility] Cavitary lesion of lung Cavitary lesion of lung Disease Active 2022-07 00:00: 00 [facility] Cervical myelopathy Cervical myelopathy Disease Recurre are 2022-07 00:00: 00 [facility] Cervical disc disorder Cervical disc disorder Disease Active 2022-07 00:00: 00 [facility] Cord compressio n Cord compressio n Disease Recurre nce 03-30 00:00: 00 [facility] Cauda equina compressio n Cauda equina compressio n Disease Active 2023-0 9-11 00:00: 00 [facility] Seizure Seizure Disease Recurre nce 1-14 00:00: 00 [facility] Cardiomyop athy Cardiomyop athy Disease Active 1-13 00:00: 00 [facility] NSVT (nonsustai keisha ventricula r tachycardi a) NSVT (nonsustai keisha ventricula r tachycardi a) Disease Active 1-13 00:00: 00 [facility] Chest pain, unspecifie d type Chest pain, unspecifie d type Disease Active -12 00:00: 00 [facility] Elevated brain natriureti c peptide (BNP) level Elevated brain natriureti c peptide (BNP) level Disease Active 12 00:00: 00 [facility] Coronary artery disease involving [place] coronary artery of [place] heart without angina pectoris Coronary artery disease involving [place] coronary artery of [place] heart without angina pectoris Disease Active -12 00:00: 00 [facility] Snores Snores Disease Active 07-31 00:00: 00 [facility] Cigarette smoker Cigarette smoker Disease Active 07-31 00:00: 00 [facility] Primary hypertensi on Primary hypertensi on Disease Active 07-31 00:00: 00 [facility] Other hyperlipid emia Other hyperlipid emia Disease Active 07-31 00:00: 00 [facility] Coronary artery disease involving [place] coronary artery of [place] heart without angina pectoris Coronary artery disease involving [place] coronary artery of [place] heart without angina pectoris Disease Active 12 00:00: 00 [facility] Chronic bilateral low back pain with bilateral sciatica Chronic bilateral low back pain with bilateral sciatica Disease Active 2021-07 0-17 00:00: 00 [facility] 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 Disease Active 9-27 00:00: 00 [facility] Neuroforam inal stenosis of cervical spine Neuroforam inal stenosis of cervical spine Disease Active 04-15 00:00: [address] [facility] Stroke-lik e symptoms Stroke-lik e symptoms Disease Active 04-13 00:00: [address] [facility] Bipolar disorder, in partial remission, most recent episode manic Bipolar disorder, in partial remission, most recent episode manic Disease Active 09-27 00:00: [address] [facility] Neuroforam inal stenosis of lumbar spine Neuroforam inal stenosis of lumbar spine Disease Active 09-27 00:00: [address] [facility] Bilateral acute otitis media, recurrence not specified, unspecifie d otitis media type Bilateral acute otitis media, recurrence not specified, unspecifie d otitis media type Disease Active 09-27 00:00: [address] [facility] Lumbar spinal stenosis Lumbar spinal stenosis Disease Active 09-27 00:00: [address] [facility] Right-side d low back pain with sciatica, sciatica laterality unspecifie d Right-side d low back pain with sciatica, sciatica laterality unspecifie d Disease Active 09-27 00:00: [address] [facility] Generalize d anxiety disorder Generalize d anxiety disorder Disease Active 09-27 00:00: [address] [facility] Agoraphobi a Agoraphobi a Disease Active 09-27 00:00: [address] [facility] Bipolar disorder, in partial remission, most recent episode manic Bipolar disorder, in partial remission, most recent episode manic Disease Active 09-27 00:00: [address] [facility] Obsessive compulsive disorder Obsessive compulsive disorder Disease Active 09-27 00:00: [address] [facility] Breast mass, left Breast mass, left Disease Active 09-17 00:00: [address] [facility] Anxiety Anxiety Disease Active 09-17 00:00: [address] [facility] Lower back pain Lower back pain Disease Active 09-17 00:00: [address] [facility] High blood pressure High blood pressure Disease Active 09-17 00:00: [address] [facility] COPD (chronic obstructiv e pulmonary disease) COPD (chronic obstructiv e pulmonary disease) Disease Active 09-17 00:00: [address] [facility] Obesity Obesity Disease Active 09-17 00:00: 00 [facility] Allergies, Adverse Reactions, Alerts Allergy Name Allergy Type Status Severity Reaction(s) Onset Date Inactive Date Treating Clinician Comments Source FLUOXETI NE Allergy Active - 00:00: 00 [facility] GREEN TEA Allergy Active High Other - 00:00: 00 [facility] LEVETIRA CETAM Allergy Active High N\\T\\V - 00:00: 00 [facility] Fluoxeti ne Propensi ty to adverse reaction s Active - 00:00: 00 [facility] Green Tea Propensi ty to adverse reaction s Active - 00:00: 00 Seizure like activity [facility] Levetira cetam Propensi ty to adverse reaction s Active Nausea And Vomiting 03-29 00:00: 00 Intensifi es seizure [facility] Green Tea Drug Allergy Active Other (See Comments) 03-29 00:00: 00 Seizure like activity [facility] Levetira cetam Drug Allergy Active Nausea And Vomiting - 00:00: 00 Intensifi es seizure [facility] Levetira cetam Propensi ty to adverse reaction s Active Other 11-17 00:00: 00 Intensifi es seizure Makes seizures worse Makes seizures worse Intensifi es seizure Cynthia Seybold - Externa l LEVETIRA CETAM DRUG INGREDI Active Other-Cmnt 11-17 00:00: [address] [facility] Levetira cetam Propensi ty to adverse reaction s Active Other - See comments 11-17 00:00: 00 Makes seizures worse [facility] Green Tea Propensi ty to adverse reaction s Active 1-14 00:00: 00 [facility] GREEN TEA Allergy Active 08-02 00:00: 00 [facility] Fluoxeti ne Propensi ty to adverse reaction s Active Rash 08-02 00:00: 00 Cynthia gonzalez FLUOXETI NE Allergy Active Med Rash 08-02 00:00: 00 [facility] Fluoxeti ne Propensi ty to adverse reaction s Active Unknown - See comments 03-25 00:00: [address] [facility] FLUOXETI NE DRUG INGREDI Active Unknown-Cmnt 03-25 00:00: [address] [facility] Diclofen ac Propensi ty to adverse reaction s Active Anxiety 11-20 00:00: 00 Cynthia gonzalez DICLOFEN AC DRUG INGREDI Active HYPERTENSION 11-20 00:00: 00 [facility] Green Tea Propensi ty to adverse reaction s Active Anxiety 08-10 00:00: 00 Seizure like activity Seizures Seizures Seizure like activity Cynthia gonzalez GREEN TEA DRUG INGREDI Active Med Other-Cmnt 08-10 00:00: [address] [facility] Green Tea Propensi ty to adverse reaction s to drug Active Other - See comments 08-10 00:00: [address] [facility] FLUOXETI NE HCL DRUG INGREDI Active Hives 03-19 00:00: 00 [facility] Fluoxeti ne Hcl Propensi ty to adverse reaction s Active Hives 03-19 00:00: 00 [facility] Family History Family Member Diagnosis Comments Start Date Stop Date Sourc e Natural mother Alcohol abuse C [facility] Natural mother Cancer [facility] Natural mother Diabetes [facility] Natural mother Heart disease C [facility] Natural mother Hyperlipidemia [facility] Natural mother Kidney disease [facility] Natural mother Stroke [facility] Natural mother Alcohol abuse C [facility] Natural mother Stroke [facility] Paternal uncle Diabetes [facility] Social History Social Habit Start Date Stop Date Quantity Comments Source Sexual orientation K elsey Seybold - External History of tobacco use Cigarette Smoker Cynthia boyd - External History SDOH Social Connections Get Together [facility] History SDOH Social Connections [facility] SDOH Social Connections Membership [facility] History SDOH Social Connections Meetings [facility] History SDOH Alcohol Frequency [facility] History SDOH Alcohol Std Drinks [facility] History SDOH Alcohol Binge [facility] History SDOH Housing Homeless Last Year [facility] Tobacco use and exposure 2023-09-30 00:00:00 2023-09-30 00:00:00 Smokeless tobacco non-user Cynthia Garcia - External History of Social function 2023-09-30 00:00:00 2023-09-30 00:00:00 Cynthia Garcia - External Cigarettes smoked current (pack per day) - Reported 2023-09-30 00:00:00 2023-09-30 00:00:00 Cynthia Garcia - External Cigarette pack-years 2023-09-30 00:00:00 2023-09-30 00:00:00 Cynthia Garcia - External Alcohol intake 2023-09-30 00:00:00 2023-09-30 00:00:00 .57 /d Cynthia Garcia - External Education - What is the highest level of school you have completed or the highest degree you have received? 2023-09-30 00:00:00 2023-09-30 00:00:00 GED or equivalent Cynthia Garcia - External Exposure to SARS-CoV-2 (event) 2023-05-18 00:00:00 2023-05-28 07:28:00 Not sure [facility] History SDOH Housing Unable to Pay - In the last 12 months, was there a time when you were not able to pay the mortgage or rent on time? 2023-05-26 00:00:00 2023-05-26 00:00:00 Yes [facility] History SDOH Housing Places Lived 2023-03-30 00:00:00 2023-03-30 00:00:00 1 [facility] Alcohol Comment 2023-03-29 00:00:00 2023-03-29 00:00:00 2x a week [facility] History SDOH Social Connections Phone 2022-08-01 00:00:00 2022-08-01 00:00:00 5 [facility] History SDOH Social Connections Living 2022-08-01 00:00:00 2022-08-01 00:00:00 5 [facility] History SDOH Physical Activity DPW 2022-08-01 00:00:00 2022-08-01 00:00:00 0 [facility] History SDOH Physical Activity MPS 2022-08-01 00:00:00 2022-08-01 00:00:00 0 [facility] History SDOH Financial 2022-08-01 00:00:00 2022-08-01 00:00:00 3 [facility] History SDOH Food Worry 2022-08-01 00:00:00 2022-08-01 00:00:00 1 [facility] History SDOH Food Scarcity 2022-08-01 00:00:00 2022-08-01 00:00:00 1 [facility] History SDOH Transport Med 2022-08-01 00:00:00 2022-08-01 00:00:00 2 [facility] History SDOH Transport Non-Med 2022-08-01 00:00:00 2022-08-01 00:00:00 2 [facility] Sex Assigned At 1970 00:00:00 1970 00:00:00 Cynthia Guillen Smoking Status Start Date Stop Date Source Smokes tobacco daily 2023-09-30 00:00:00 Cynthia Guillen Never smoked tobacco Cynthia Guillen Ex-smoker 2023-05-26 00:00:00 2023-05-26 00:00:00 [facility] Medications Ordered Medication Name Filled Medication Name Start Date Stop Date Current Medication? Ordering Clinician Indication Dosage Frequency Signature (SIG) Comments Components Source Metformin HCl 500 MG oral Tablet 09-29 14:28: 11 Yes 500mg Take 1 tablet (500 mg total) by mouth daily (with breakfast) . Cynthia Santoyo Externa l Ibuprofen (MOTRIN) 200 MG oral Tablet 09-29 14:27: 32 09-29 00:00 :00 No 200mg [id number] 3D Take 1 tablet (200 mg total) by mouth every 8 hours as needed for pain. Cynthia gonzalez Fluticasone -Umeclidin- Vilant (Trelegy Ellipta) 100-62.5-25 MCG/ACT inhalation AEROSOL POWDER, BREATH ACTIVATED 09-29 00:00: 00 Yes [id number] 1{puff} Inhale 1 puff into the lungs daily. Cynthia gonzalez Carvedilol 12.5 MG oral Tablet 09-29 00:00: 00 Yes [id number] 12.5mg Take 1 tablet (12.5 mg total) by mouth in the morning and 1 tablet (12.5 mg total) in the evening. Take with meals. Cynthia gonzalez Duloxetine HCl [address] Particles 09-29 00:00: 00 Yes [id number] 20mg Take 1 capsule (20 mg total) by mouth daily. Cynthia gonzalez Acetaminoph en-Codeine (TYLENOL/CO DEINE #3) 300-30 MG oral Tablet 09-29 00:00: 00 Yes [id number] 1{tbl} Q.25D Take 1 tablet by mouth every 6 hours as needed for pain. Cynthia gonzalez Clonazepam 1 MG oral Tablet 09-29 00:00: 00 Yes [id number] 1mg QD Take 1 tablet (1 mg total) by mouth nightly as needed for anxiety. Cynthia gonzalez Carvedilol 12.5 MG oral Tablet 09-28 00:00: 00 09-29 00:00 :00 No 12.5mg Take 1 tablet (12.5 mg total) by mouth in the morning and 1 tablet (12.5 mg total) in the evening. Take with meals. Cynthia gonzalez dexAMETHaso ne (DECADRON) 4 MG oral tablet 09-28 00:00: 00 09-29 00:00 :00 No 4mg Take 1 tablet (4 mg total) by mouth in the morning and 1 tablet (4 mg total) in the evening. Take with meals. Cynthia gonzalez Arformotero lisa Tartrate 15 MCG/2ML inhalation Inhalant Solution 09-21 00:00: 00 Yes 15ug Inhale 2 mL (15 mcg total) into the lungs 2 times daily. Cynthia gonzalez Ipratropium (ATROVENT) 0.02 % inhalation Solution 09-21 00:00: 00 09-29 00:00 :00 No 500ug Take 2.5 mL (500 mcg total) by nebulizati on once. Cynthia gonzalez Varenicline Tartrate 1 MG oral [...] MG oral Tablet 09-11 00:00: 00 Yes [id number] 1{tbl} Q.25D Take 1 tablet by mouth every 6 hours as needed for pain. Cynthia gonzalez Mirtazapine 15 MG oral Tablet 09-11 00:00: 00 Yes [id number] 15mg QD Take 1 tablet (15 mg total) by mouth nightly as needed. Cynthia gonzalez Acetaminoph en-Codeine (TYLENOL/CO DEINE #3) 300-30 MG oral Tablet 09-11 00:00: 00 2024- 03-13 00:00 :00 No [id number] 1{tbl} Q.25D Take 1 tablet by mouth every 6 hours as needed for pain. Cynthia gonzalez DULoxetine (CYMBALTA) 60 MG capsule 09-09 00:00: 00 10-08 23:59 :00 Yes 60mg QD Take 1 capsule (60 mg total) by mouth daily for 30 days. [facility] DULoxetine (CYMBALTA) 60 MG capsule 09-09 00:00: 00 10-08 23:59 :00 Yes 60mg QD Take 1 capsule (60 mg total) by mouth daily for 30 days. [facility] DULoxetine (CYMBALTA) 60 MG capsule 09-09 00:00: 00 10-08 23:59 :00 Yes 60mg QD Take 1 capsule (60 mg total) by mouth daily for 30 days. [facility] DULoxetine (CYMBALTA) 60 MG capsule 09-09 00:00: 00 10-08 23:59 :00 Yes 60mg QD Take 1 capsule (60 mg total) by mouth daily for 30 days. [facility] DULoxetine (CYMBALTA) 60 MG capsule 09-09 00:00: 00 10-08 23:59 :00 Yes 60mg QD Take 1 capsule (60 mg total) by mouth daily for 30 days. [facility] DULoxetine (CYMBALTA) 60 MG capsule 09-09 00:00: 00 10-08 23:59 :00 Yes 60mg QD Take 1 capsule (60 mg total) by mouth daily for 30 days. [facility] DULoxetine (CYMBALTA) 60 MG capsule 09-09 00:00: 00 10-08 23:59 :00 Yes 60mg QD Take 1 capsule (60 mg total) by mouth daily for 30 days. [facility] DULoxetine (CYMBALTA) 60 MG capsule 09-09 00:00: 00 10-08 23:59 :00 Yes 60mg QD Take 1 capsule (60 mg total) by mouth daily for 30 days. [facility] varenicline (CHANTIX) 1 mg tablet 4-0 2-20 10:51: 03 Yes 1mg Q.5D Take 1 tablet (1 mg total) by mouth 2 (two) times daily Give with meals and with a full glass of water.. [facility] atorvastati n (LIPITOR) 20 MG tablet 4-0 2-20 10:51: 03 Yes 20mg QD Take 1 tablet (20 mg total) by mouth daily. [facility] varenicline (CHANTIX) 1 mg tablet 4-0 2-20 10:51: 03 Yes 1mg Q.5D Take 1 tablet (1 mg total) by mouth 2 (two) times daily Give with meals and with a full glass of water.. [facility] atorvastati n (LIPITOR) 20 MG tablet 4-0 2-20 10:51: 03 Yes 20mg QD Take 1 tablet (20 mg total) by mouth daily. [facility] varenicline (CHANTIX) 1 mg tablet 4-0 2-20 10:51: 03 Yes 1mg Q.5D Take 1 tablet (1 mg total) by mouth 2 (two) times daily Give with meals and with a full glass of water.. [facility] atorvastati n (LIPITOR) 20 MG tablet 4-0 2-20 10:51: 03 Yes 20mg QD Take 1 tablet (20 mg total) by mouth daily. [facility] varenicline (CHANTIX) 1 mg tablet 4-0 2-20 10:51: 03 Yes 1mg Q.5D Take 1 tablet (1 mg total) by mouth 2 (two) times daily Give with meals and with a full glass of water.. [facility] atorvastati n (LIPITOR) 20 MG tablet 4-0 2-20 10:51: 03 Yes 20mg QD Take 1 tablet (20 mg total) by mouth daily. [facility] varenicline (CHANTIX) 1 mg tablet 4-0 2-20 10:51: 03 Yes 1mg Q.5D Take 1 tablet (1 mg total) by mouth 2 (two) times daily Give with meals and with a full glass of water.. [facility] atorvastati n (LIPITOR) 20 MG tablet 2023-0 2-20 10:51: 03 Yes 20mg QD Take 1 tablet (20 mg total) by mouth daily. [facility] [facility] v[facility]icline (CHANTIX[facility] 1 mg tablet 2023-0 2-20 10:51: 03 Yes 1mg Q.5D Take 1 tablet (1 mg total) by mouth 2 (two) times daily Give with meals and with a full glass of water.. [facility] atorvastati n (LIPITOR) 20 MG tablet 2023-0 2-20 10:51: 03 Yes 20mg QD Take 1 tablet (20 mg total) by mouth daily. [facility] varenicline (CHANTIX) 1 mg tablet 2023-0 2-20 10:51: 03 Yes 1mg Q.5D Take 1 tablet (1 mg total) by mouth 2 (two) times daily Give with meals and with a full glass of water.. [facility] atorvastati n (LIPITOR) 20 MG tablet 2023-0 2-20 10:51: 03 Yes 20mg QD Take 1 tablet (20 mg total) by mouth daily. [facility] varenicline (CHANTIX) 1 mg tablet 0 2-20 10:51: 03 Yes 1mg Q.5D Take 1 tablet (1 mg total) by mouth 2 (two) times daily Give with meals and with a full glass of water.. [facility] atorvastati n (LIPITOR) 20 MG tablet 2023-0 2-20 10:51: 03 Yes 20mg QD Take 1 tablet (20 mg total) by mouth daily. [facility] Cyanocobala min (Vitamin B-12) 1000 MCG oral Tablet - 00:00: 00 10-08 04:59 :00 Yes 1000ug Take 1 tablet (1,000 mcg total) by mouth daily. Cynthia gonzalez lidocaine (LIDODERM) 4 % patch -20 00:00: 00 10-07 23:59 :00 Yes 3{patch } Q24H Place 3 patches onto the skin daily for 30 days. [facility] cyanocobala min (VITAMIN B-12) 1000 MCG tablet 2023-0 2-20 00:00: 00 10-07 23:59 :00 Yes 1000ug QD Take 1 tablet (1,000 mcg total) by mouth daily for 30 days. [facility] lidocaine (LIDODERM) 4 % patch 2023-0 2-20 00:00: 00 10-07 23:59 :00 Yes 3{patch } Q24H Place 3 patches onto the skin daily for 30 days. [facility] cyanocobala min (VITAMIN B-12) 1000 MCG tablet 2023-0 2-20 00:00: 00 10-07 23:59 :00 Yes 1000ug QD Take 1 tablet (1,000 mcg total) by mouth daily for 30 days. [facility] lidocaine (LIDODERM) 4 % patch 2023-0 2-20 00:00: 00 10-07 23:59 :00 Yes 3{patch } Q24H Place 3 patches onto the skin daily for 30 days. [facility] cyanocobala min (VITAMIN B-12) 1000 MCG tablet 2023-0 2-20 00:00: 00 10-07 23:59 :00 Yes 1000ug QD Take 1 tablet (1,000 mcg total) by mouth daily for 30 days. [facility] lidocaine (LIDODERM) 4 % patch 2023-0 2-20 00:00: 00 10-07 23:59 :00 Yes 3{patch } Q24H Place 3 patches onto the skin daily for 30 days. [facility] cyanocobala min (VITAMIN B-12) 1000 MCG tablet 2023-0 2-20 00:00: 00 10-07 23:59 :00 Yes 1000ug QD Take 1 tablet (1,000 mcg total) by mouth daily for 30 days. [facility] lidocaine (LIDODERM) 4 % patch 4-0 2-20 00:00: 00 10-07 23:59 :00 Yes 3{patch } Q24H Place 3 patches onto the skin daily for 30 days. [facility] cyanocobala min (VITAMIN B-12) 1000 MCG tablet 09-08 00:00: 00 10-07 23:59 :00 Yes 1000ug QD Take 1 tablet (1,000 mcg total) by mouth daily for 30 days. [facility] lidocaine (LIDODERM) 4 % patch 09-08 00:00: 00 10-07 23:59 :00 Yes 3{patch } Q24H Place 3 patches onto the skin daily for 30 days. [facility] cyanocobala min (VITAMIN B-12) 1000 MCG tablet 09-08 00:00: 00 10-07 23:59 :00 Yes 1000ug QD Take 1 tablet (1,000 mcg total) by mouth daily for 30 days. [facility] lidocaine (LIDODERM) 4 % patch 09-08 00:00: 00 10-07 23:59 :00 Yes 3{patch } Q24H Place 3 patches onto the skin daily for 30 days. [facility] cyanocobala min (VITAMIN B-12) 1000 MCG tablet 09-08 00:00: 00 10-07 23:59 :00 Yes 1000ug QD Take 1 tablet (1,000 mcg total) by mouth daily for 30 days. [facility] lidocaine (LIDODERM) 4 % patch 09-08 00:00: 00 10-07 23:59 :00 Yes 3{patch } Q24H Place 3 patches onto the skin daily for 30 days. [facility] cyanocobala min (VITAMIN B-12) 1000 MCG tablet 09-08 00:00: 00 10-07 23:59 :00 Yes 1000ug QD Take 1 tablet (1,000 mcg total) by mouth daily for 30 days. [facility] metoprolol succinate (TOPROL-XL) 25 MG 24 hr tablet 09-07 16:47: 05 09-07 00:00 :00 No 25mg QD Take 1 tablet (25 mg total) by mouth daily. [facility] albuterol HFA (VENTOLIN HFA) 90 mcg/actuati on inhaler 09-07 16:47: 05 09-07 00:00 :00 No 1{puff} Inhale 1 puff by mouth via inhaler every 6 (six) hours as needed for Wheezing. [facility] fluticasone -umeclidin- vilanter (Trelegy Ellipta) 200-62.5-25 mcg DsDv 09-07 16:47: 05 09-07 00:00 :00 No QD Inhale by mouth via inhaler daily. [facility] metoprolol succinate (TOPROL-XL) 25 MG 24 hr tablet 09-07 16:47: 05 09-07 00:00 :00 No 25mg QD Take 1 tablet (25 mg total) by mouth daily. [facility] albuterol HFA (VENTOLIN HFA) 90 mcg/actuati on inhaler 09-07 16:47: 05 09-07 00:00 :00 No 1{puff} Inhale 1 puff by mouth via inhaler every 6 (six) hours as needed for Wheezing. [facility] fluticasone -umeclidin- vilanter (Trelegy Ellipta) 200-62.5-25 mcg DsDv 09-07 16:47: 09-07 00:00 :00 No QD Inhale by mouth via inhaler daily. [facility] metoprolol succinate (TOPROL-XL) 25 MG 24 hr tablet 09-07 16:47: 09-07 00:00 :00 No 25mg QD Take 1 tablet (25 mg total) by mouth daily. [facility] albuterol HFA (VENTOLIN HFA) 90 mcg/actuati on inhaler 09-07 16:47: 05 09-07 00:00 :00 No 1{puff} Inhale 1 puff by mouth via inhaler every 6 (six) hours as needed for Wheezing. [facility] fluticasone -umeclidin- vilanter (Trelegy Ellipta) 200-62.5-25 mcg DsDv 09-07 16:47: 05 09-07 00:00 :00 No QD Inhale by mouth via inhaler daily. [facility] metoprolol succinate (TOPROL-XL) 25 MG 24 hr tablet 09-07 16:47: 05 09-07 00:00 :00 No 25mg QD Take 1 tablet (25 mg total) by mouth daily. [facility] albuterol HFA (VENTOLIN HFA) 90 mcg/actuati on inhaler 09-07 16:47: 05 09-07 00:00 :00 No 1{puff} Inhale 1 puff by mouth via inhaler every 6 (six) hours as needed for Wheezing. [facility] fluticasone -umeclidin- vilanter (Trelegy Ellipta) 200-62.5-25 mcg DsDv 09-07 16:47: 05 09-07 00:00 :00 No QD Inhale by mouth via inhaler daily. [facility] metoprolol succinate (TOPROL-XL) 25 MG 24 hr tablet 09-07 16:47: 05 09-07 00:00 :00 No 25mg QD Take 1 tablet (25 mg total) by mouth daily. [facility] albuterol HFA (VENTOLIN HFA) 90 mcg/actuati on inhaler 09-07 16:47: 09-07 00:00 :00 No 1{puff} Inhale 1 puff by mouth via inhaler every 6 (six) hours as needed for Wheezing. [facility] fluticasone -umeclidin- vilanter (Trelegy Ellipta) 200-62.5-25 mcg DsDv 09-07 16:47: 05 09-07 00:00 :00 No QD Inhale by mouth via inhaler daily. [facility] metoprolol succinate (TOPROL-XL) 25 MG 24 hr tablet 09-07 16:47: 05 09-07 00:00 :00 No 25mg QD Take 1 tablet (25 mg total) by mouth daily. [facility] albuterol HFA (VENTOLIN HFA) 90 mcg/actuati on inhaler 09-07 16:47: 05 09-07 00:00 :00 No 1{puff} Inhale 1 puff by mouth via inhaler every 6 (six) hours as needed for Wheezing. [facility] fluticasone -umeclidin- vilanter (Trelegy Ellipta) 200-62.5-25 mcg DsDv 09-07 16:47: 05 09-07 00:00 :00 No QD Inhale by mouth via inhaler daily. [facility] metoprolol succinate (TOPROL-XL) 25 MG 24 hr tablet 09-07 16:47: 05 09-07 00:00 :00 No 25mg QD Take 1 tablet (25 mg total) by mouth daily. [facility] albuterol HFA (VENTOLIN HFA) 90 mcg/actuati on inhaler 09-07 16:47: 05 09-07 00:00 :00 No 1{puff} Inhale 1 puff by mouth via inhaler every 6 (six) hours as needed for Wheezing. [facility] fluticasone -umeclidin- vilanter (Trelegy Ellipta) 200-62.5-25 mcg DsDv 09-07 16:47: 05 09-07 00:00 :00 No QD Inhale by mouth via inhaler daily. [facility] metoprolol succinate (TOPROL-XL) 25 MG 24 hr tablet 09-07 16:47: 05 09-07 00:00 :00 No 25mg QD Take 1 tablet (25 mg total) by mouth daily. [facility] albuterol HFA (VENTOLIN HFA) 90 mcg/actuati on inhaler 09-07 16:47: 05 09-07 00:00 :00 No 1{puff} Inhale 1 puff by mouth via inhaler every 6 (six) hours as needed for Wheezing. [facility] fluticasone -umeclidin- vilanter (Trelegy Ellipta) 200-62.5-25 mcg DsDv 09-07 16:47: 05 09-07 00:00 :00 No QD Inhale by mouth via inhaler daily. [facility] Albuterol HFA 108 (90 Base) MCG/ACT IN AERS 09-07 00:00: 00 10-07 04:59 :00 Yes 1{puff} Q.25D Inhale 1 puff into the lungs every 6 hours as needed. Cynthia gonzalez Albuterol HFA 108 (90 Base) MCG/ACT IN [...] total) by mouth daily for 30 days. [facility] senna-docus ate (SENOKOT S) 8.6-50 mg per tablet 09-07 00:00: 00 10-06 23:59 :00 Yes 2{tbl} Q.5D Take 2 tablets by mouth 2 (two) times daily for 30 days. [facility] polyethylen e glycol (GLYCOLAX) 17 gram packet 09-07 00:00: 00 10-06 23:59 :00 Yes 17g Q.5D Take 17 g by mouth 2 (two) times daily for 30 days. [facility] gabapentin (NEURONTIN) 400 MG capsule 09-07 00:00: 00 10-06 23:59 :00 Yes 400mg Q.[id number] 3D Take 1 capsule (400 mg total) by mouth 3 (three) times daily for 30 days. [facility] furosemide (LASIX) 20 MG tablet 09-07 00:00: 00 10-06 23:59 :00 Yes 20mg QD Take 1 tablet (20 mg total) by mouth daily for 30 days. [facility] fluticasone -umeclidin- vilanter (Trelegy Ellipta) 200-62.5-25 mcg DsDv 09-07 00:00: 00 10-06 23:59 :00 Yes 1{inhal ation} QD Inhale 1 Inhalation by mouth via inhaler daily for 30 days. [facility] albuterol HFA (VENTOLIN HFA) 90 mcg/actuati on inhaler 09-07 00:00: 00 10-06 23:59 :00 Yes 1{puff} Inhale 1 puff by mouth via inhaler every 6 (six) hours as needed for Wheezing for up to 30 days. [facility] metoprolol succinate (TOPROL-XL) 25 MG 24 hr tablet 09-07 00:00: 00 10-06 23:59 :00 Yes 25mg QD Take 1 tablet (25 mg total) by mouth daily for 30 days. [facility] baclofen (LIORESAL) 5 mg Tab 09-07 00:00: 00 10-06 23:59 :00 Yes 5mg QD Take 1 tablet (5 mg total) by mouth nightly for 30 days. [facility] tamsulosin (FLOMAX) 0.4 mg Cap 24 hr capsule 09-07 00:00: 00 10-06 23:59 :00 Yes .4mg QD Take 1 capsule (0.4 mg total) by mouth daily for 30 days. [facility] senna-docus ate (SENOKOT S) 8.6-50 mg per tablet - 00:00: 00 10-06 23:59 :00 Yes 2{tbl} Q.5D Take 2 tablets by mouth 2 (two) times daily for 30 days. [facility] polyethylen e glycol (GLYCOLAX) 17 gram packet 09-07 00:00: 00 10-06 23:59 :00 Yes 17g Q.5D Take 17 g by mouth 2 (two) times daily for 30 days. [facility] gabapentin (NEURONTIN) 400 MG capsule 09-07 00:00: 00 10-06 23:59 :00 Yes 400mg Q.[id number] 3D Take 1 capsule (400 mg total) by mouth 3 (three) times daily for 30 days. [facility] furosemide (LASIX) 20 MG tablet 09-07 00:00: 00 10-06 23:59 :00 Yes 20mg QD Take 1 tablet (20 mg total) by mouth daily for 30 days. [facility] fluticasone -umeclidin- vilanter (Trelegy Ellipta) 200-62.5-25 mcg DsDv 09-07 00:00: 00 10-06 23:59 :00 Yes 1{inhal ation} QD Inhale 1 Inhalation by mouth via inhaler daily for 30 days. [facility] albuterol HFA (VENTOLIN HFA) 90 mcg/actuati on inhaler 09-07 00:00: 00 10-06 23:59 :00 Yes 1{puff} Inhale 1 puff by mouth via inhaler every 6 (six) hours as needed for Wheezing for up to 30 days. [facility] metoprolol succinate (TOPROL-XL) 25 MG 24 hr tablet 09-07 00:00: 00 10-06 23:59 :00 Yes 25mg QD Take 1 tablet (25 mg total) by mouth daily for 30 days. [facility] baclofen (LIORESAL) 5 mg Tab - 00:00: 00 10-06 23:59 :00 Yes 5mg QD Take 1 tablet (5 mg total) by mouth nightly for 30 days. [facility] tamsulosin (FLOMAX) 0.4 mg Cap 24 hr capsule 09-07 00:00: 00 10-06 23:59 :00 Yes .4mg QD Take 1 capsule (0.4 mg total) by mouth daily for 30 days. [facility] senna-docus ate (SENOKOT S) 8.6-50 mg per tablet 09-07 00:00: 00 10-06 23:59 :00 Yes 2{tbl} Q.5D Take 2 tablets by mouth 2 (two) times daily for 30 days. [facility] polyethylen e glycol (GLYCOLAX) 17 gram packet 09-07 00:00: 00 10-06 23:59 :00 Yes 17g Q.5D Take 17 g by mouth 2 (two) times daily for 30 days. [facility] gabapentin (NEURONTIN) 400 MG capsule 09-07 00:00: 00 10-06 23:59 :00 Yes 400mg Q.[id number] 3D Take 1 capsule (400 mg total) by mouth 3 (three) times daily for 30 days. [facility] furosemide (LASIX) 20 MG tablet 09-07 00:00: 00 10-06 23:59 :00 Yes 20mg QD Take 1 tablet (20 mg total) by mouth daily for 30 days. [facility] fluticasone -umeclidin- vilanter (Trelegy Ellipta) 200-62.5-25 mcg DsDv 09-07 00:00: 00 10-06 23:59 :00 Yes 1{inhal ation} QD Inhale 1 Inhalation by mouth via inhaler daily for 30 days. [facility] albuterol HFA (VENTOLIN HFA) 90 mcg/actuati on inhaler 09-07 00:00: 00 10-06 23:59 :00 Yes 1{puff} Inhale 1 puff by mouth via inhaler every 6 (six) hours as needed for Wheezing for up to 30 days. [facility] metoprolol succinate (TOPROL-XL) 25 MG 24 hr tablet 09-07 00:00: 00 10-06 23:59 :00 Yes 25mg QD Take 1 tablet (25 mg total) by mouth daily for 30 days. [facility] baclofen (LIORESAL) 5 mg Tab 09-07 00:00: 00 10-06 23:59 :00 Yes 5mg QD Take 1 tablet (5 mg total) by mouth nightly for 30 days. [facility] tamsulosin (FLOMAX) 0.4 mg Cap 24 hr capsule 09-07 00:00: 00 10-06 23:59 :00 Yes .4mg QD Take 1 capsule (0.4 mg total) by mouth daily for 30 days. [facility] senna-docus ate (SENOKOT S) 8.6-50 mg per tablet 09-07 00:00: 00 10-06 23:59 :00 Yes 2{tbl} Q.5D Take 2 tablets by mouth 2 (two) times daily for 30 days. [facility] polyethylen e glycol (GLYCOLAX) 17 gram packet 09-07 00:00: 00 10-06 23:59 :00 Yes 17g Q.5D Take 17 g by mouth 2 (two) times daily for 30 days. [facility] gabapentin (NEURONTIN) 400 MG capsule 09-07 00:00: 00 10-06 23:59 :00 Yes 400mg Q.[id number] 3D Take 1 capsule (400 mg total) by mouth 3 (three) times daily for 30 days. [facility] furosemide (LASIX) 20 MG tablet 09-07 00:00: 00 10-06 23:59 :00 Yes 20mg QD Take 1 tablet (20 mg total) by mouth daily for 30 days. [facility] fluticasone -umeclidin- vilanter (Trelegy Ellipta) 200-62.5-25 mcg DsDv - 00:00: 00 10-06 23:59 :00 Yes 1{inhal ation} QD Inhale 1 Inhalation by mouth via inhaler daily for 30 days. [facility] albuterol HFA (VENTOLIN HFA) 90 mcg/actuati on inhaler 09-07 00:00: 00 10-06 23:59 :00 Yes 1{puff} Inhale 1 puff by mouth via inhaler every 6 (six) hours as needed for Wheezing for up to 30 days. [facility] metoprolol succinate (TOPROL-XL) 25 MG 24 hr tablet 09-07 00:00: 00 10-06 23:59 :00 Yes 25mg QD Take 1 tablet (25 mg total) by mouth daily for 30 days. [facility] baclofen (LIORESAL) 5 mg Tab 09-07 00:00: 00 10-06 23:59 :00 Yes 5mg QD Take 1 tablet (5 mg total) by mouth nightly for 30 days. [facility] tamsulosin (FLOMAX) 0.4 mg Cap 24 hr capsule 09-07 00:00: 00 10-06 23:59 :00 Yes .4mg QD Take 1 capsule (0.4 mg total) by mouth daily for 30 days. [facility] senna-docus ate (SENOKOT S) 8.6-50 mg per tablet 09-07 00:00: 00 10-06 23:59 :00 Yes 2{tbl} Q.5D Take 2 tablets by mouth 2 (two) times daily for 30 days. [facility] polyethylen e glycol (GLYCOLAX) 17 gram packet 09-07 00:00: 00 10-06 23:59 :00 Yes 17g Q.5D Take 17 g by mouth 2 (two) times daily for 30 days. [facility] gabapentin (NEURONTIN) 400 MG capsule 09-07 00:00: 00 10-06 23:59 :00 Yes 400mg Q.[id number] 3D Take 1 capsule (400 mg total) by mouth 3 (three) times daily for 30 days. [facility] furosemide (LASIX) 20 MG tablet - 00:00: 00 10-06 23:59 :00 Yes 20mg QD Take 1 tablet (20 mg total) by mouth daily for 30 days. [facility] fluticasone -umeclidin- vilanter (Trelegy Ellipta) 200-62.5-25 mcg DsDv - 00:00: 00 10-06 23:59 :00 Yes 1{inhal ation} QD Inhale 1 Inhalation by mouth via inhaler daily for 30 days. [facility] albuterol HFA (VENTOLIN HFA) 90 mcg/actuati on inhaler 09-07 00:00: 00 10-06 23:59 :00 Yes 1{puff} Inhale 1 puff by mouth via inhaler every 6 (six) hours as needed for Wheezing for up to 30 days. [facility] metoprolol succinate (TOPROL-XL) 25 MG 24 hr tablet 09-07 00:00: 00 10-06 23:59 :00 Yes 25mg QD Take 1 tablet (25 mg total) by mouth daily for 30 days. [facility] baclofen (LIORESAL) 5 mg Tab - 00:00: 00 10-06 23:59 :00 Yes 5mg QD Take 1 tablet (5 mg total) by mouth nightly for 30 days. [facility] tamsulosin (FLOMAX) 0.4 mg Cap 24 hr capsule - 00:00: 00 10-06 23:59 :00 Yes .4mg QD Take 1 capsule (0.4 mg total) by mouth daily for 30 days. [facility] senna-docus ate (SENOKOT S) 8.6-50 mg per tablet - 00:00: 00 10-06 23:59 :00 Yes 2{tbl} Q.5D Take 2 tablets by mouth 2 (two) times daily for 30 days. [facility] polyethylen e glycol (GLYCOLAX) 17 gram packet 09-07 00:00: 00 10-06 23:59 :00 Yes 17g Q.5D Take 17 g by mouth 2 (two) times daily for 30 days. [facility] gabapentin (NEURONTIN) 400 MG capsule 09-07 00:00: 00 10-06 23:59 :00 Yes 400mg Q.[id number] 3D Take 1 capsule (400 mg total) by mouth 3 (three) times daily for 30 days. [facility] furosemide (LASIX) 20 MG tablet 09-07 00:00: 00 10-06 23:59 :00 Yes 20mg QD Take 1 tablet (20 mg total) by mouth daily for 30 days. [facility] fluticasone -umeclidin- vilanter (Trelegy Ellipta) 200-62.5-25 mcg DsDv 09-07 00:00: 00 10-06 23:59 :00 Yes 1{inhal ation} QD Inhale 1 Inhalation by mouth via inhaler daily for 30 days. [facility] albuterol HFA (VENTOLIN HFA) 90 mcg/actuati on inhaler 09-07 00:00: 00 10-06 23:59 :00 Yes 1{puff} Inhale 1 puff by mouth via inhaler every 6 (six) hours as needed for Wheezing for up to 30 days. [facility] metoprolol succinate (TOPROL-XL) 25 MG 24 hr tablet 09-07 00:00: 00 10-06 23:59 :00 Yes 25mg QD Take 1 tablet (25 mg total) by mouth daily for 30 days. [facility] baclofen (LIORESAL) 5 mg Tab 09-07 00:00: 00 10-06 23:59 :00 Yes 5mg QD Take 1 tablet (5 mg total) by mouth nightly for 30 days. [facility] tamsulosin (FLOMAX) 0.4 mg Cap 24 hr capsule 09-07 00:00: 00 10-06 23:59 :00 Yes .4mg QD Take 1 capsule (0.4 mg total) by mouth daily for 30 days. [facility] senna-docus ate (SENOKOT S) 8.6-50 mg per tablet 09-07 00:00: 00 10-06 23:59 :00 Yes 2{tbl} Q.5D Take 2 tablets by mouth 2 (two) times daily for 30 days. [facility] polyethylen e glycol (GLYCOLAX) 17 gram packet 09-07 00:00: 00 10-06 23:59 :00 Yes 17g Q.5D Take 17 g by mouth 2 (two) times daily for 30 days. [facility] gabapentin (NEURONTIN) 400 MG capsule 09-07 00:00: 00 10-06 23:59 :00 Yes 400mg Q.[id number] 3D Take 1 capsule (400 mg total) by mouth 3 (three) times daily for 30 days. [facility] furosemide (LASIX) 20 MG tablet 09-07 00:00: 00 10-06 23:59 :00 Yes 20mg QD Take 1 tablet (20 mg total) by mouth daily for 30 days. [facility] fluticasone -umeclidin- vilanter (Trelegy Ellipta) 200-62.5-25 mcg DsDv 09-07 00:00: 00 10-06 23:59 :00 Yes 1{inhal ation} QD Inhale 1 Inhalation by mouth via inhaler daily for 30 days. [facility] albuterol HFA (VENTOLIN HFA) 90 mcg/actuati on inhaler 09-07 00:00: 00 10-06 23:59 :00 Yes 1{puff} Inhale 1 puff by mouth via inhaler every 6 (six) hours as needed for Wheezing for up to 30 days. [facility] metoprolol succinate (TOPROL-XL) 25 MG 24 hr tablet 09-07 00:00: 00 10-06 23:59 :00 Yes 25mg QD Take 1 tablet (25 mg total) by mouth daily for 30 days. [facility] baclofen (LIORESAL) 5 mg Tab 09-07 00:00: 00 10-06 23:59 :00 Yes 5mg QD Take 1 tablet (5 mg total) by mouth nightly for 30 days. [facility] tamsulosin (FLOMAX) 0.4 mg Cap 24 hr capsule 09-07 00:00: 00 10-06 23:59 :00 Yes .4mg QD Take 1 capsule (0.4 mg total) by mouth daily for 30 days. [facility] senna-docus ate (SENOKOT S) 8.6-50 mg per tablet 09-07 00:00: 00 10-06 23:59 :00 Yes 2{tbl} Q.5D Take 2 tablets by mouth 2 (two) times daily for 30 days. [facility] polyethylen e glycol (GLYCOLAX) 17 gram packet 09-07 00:00: 00 10-06 23:59 :00 Yes 17g Q.5D Take 17 g by mouth 2 (two) times daily for 30 days. [facility] gabapentin (NEURONTIN) 400 MG capsule 09-07 00:00: 00 10-06 23:59 :00 Yes 400mg Q.[id number] 3D Take 1 capsule (400 mg total) by mouth 3 (three) times daily for 30 days. [facility] furosemide (LASIX) 20 MG tablet 09-07 00:00: 00 10-06 23:59 :00 Yes 20mg QD Take 1 tablet (20 mg total) by mouth daily for 30 days. [facility] fluticasone -umeclidin- vilanter (Trelegy Ellipta) 200-62.5-25 mcg DsDv - 00:00: 00 10-06 23:59 :00 Yes 1{inhal ation} QD Inhale 1 Inhalation by mouth via inhaler daily for 30 days. [facility] albuterol HFA (VENTOLIN HFA) 90 mcg/actuati on inhaler 09-07 00:00: 00 10-06 23:59 :00 Yes 1{puff} Inhale 1 puff by mouth via inhaler every 6 (six) hours as needed for Wheezing for up to 30 days. [facility] metoprolol succinate (TOPROL-XL) 25 MG 24 hr tablet 09-07 00:00: 00 10-06 23:59 :00 Yes 25mg QD Take 1 tablet (25 mg total) by mouth daily for 30 days. [facility] baclofen (LIORESAL) 5 mg Tab 09-07 00:00: 00 10-06 23:59 :00 Yes 5mg QD Take 1 tablet (5 mg total) by mouth nightly for 30 days. [facility] lacosamide (VIMPAT) 100 mg in NaCl 0.9% (NS) 50 mL piggyback 08-12 21:15: 00 08-12 21:23 :00 No 100mg 100 mg, IV Piggyback, ONCE, 1 dose, On Thu08/12/23 at 1515, Administer over 30 Minutes, 50 mL
Facu lty member approving Restricted medication : BRIAN BRYAN [facility] Dicyclomine HCl 20 MG oral Tablet 08-06 [...] total) by mouth daily for 5 days. [facility] tamsulosin (FLOMAX) 0.4 mg Cap 24 hr capsule 2022-07 00:00: 06-22 23:59 :00 No .4mg QD Take 1 capsule (0.4 mg total) by mouth daily for 5 days. [facility] tamsulosin (FLOMAX) 0.4 mg Cap 24 hr capsule 2022-07 00:00: 00 06-22 23:59 :00 No .4mg QD Take 1 capsule (0.4 mg total) by mouth daily for 5 days. [facility] tamsulosin (FLOMAX) 0.4 mg Cap 24 hr capsule 2022-07 00:00: 00 06-22 23:59 :00 No .4mg QD Take 1 capsule (0.4 mg total) by mouth daily for 5 days. [facility] tamsulosin (FLOMAX) 0.4 mg Cap 24 hr capsule 2022-07 00:00: 00 06-22 23:59 :00 No .4mg QD Take 1 capsule (0.4 mg total) by mouth daily for 5 days. [facility] tamsulosin (FLOMAX) 0.4 mg Cap 24 hr capsule 2022-07 00:00: 00 06-22 23:59 :00 No .4mg QD Take 1 capsule (0.4 mg total) by mouth daily for 5 days. [facility] tamsulosin (FLOMAX) 0.4 mg Cap 24 hr capsule 2022-07 00:00: 00 06-22 23:59 :00 No .4mg QD Take 1 capsule (0.4 mg total) by mouth daily for 5 days. [facility] tamsulosin (FLOMAX) 0.4 mg Cap 24 hr capsule 2022-07 00:00: 00 06-22 23:59 :00 No .4mg QD Take 1 capsule (0.4 mg total) by mouth daily for 5 days. [facility] tamsulosin (FLOMAX) 0.4 mg Cap 24 hr capsule 2022-07 00:00: 00 06-22 23:59 :00 No .4mg QD Take 1 capsule (0.4 mg total) by mouth daily for 5 days. [facility] tamsulosin (FLOMAX) 0.4 mg Cap 24 hr capsule 2022-07 00:00: 00 06-22 23:59 :00 No .4mg QD Take 1 capsule (0.4 mg total) by mouth daily for 5 days. [facility] tamsulosin (FLOMAX) 0.4 mg Cap 24 hr capsule 2022-07 00:00: 00 06-22 23:59 :00 No .4mg QD Take 1 capsule (0.4 mg total) by mouth daily for 5 days. [facility] tamsulosin (FLOMAX) 0.4 mg Cap 24 hr capsule 2022-07 00:00: 00 06-22 23:59 :00 No .4mg QD Take 1 capsule (0.4 mg total) by mouth daily for 5 days. [facility] tamsulosin (FLOMAX) 0.4 mg Cap 24 hr capsule 2022-07 00:00: 00 06-22 23:59 :00 No .4mg QD Take 1 capsule (0.4 mg total) by mouth daily for 5 days. [facility] tamsulosin (FLOMAX) 0.4 mg Cap 24 hr capsule 2022-07 00:00: 00 06-22 23:59 :00 No .4mg QD Take 1 capsule (0.4 mg total) by mouth daily for 5 days. [facility] tamsulosin (FLOMAX) 0.4 mg Cap 24 hr capsule 2022-07 00:00: 00 06-22 23:59 :00 No .4mg QD Take 1 capsule (0.4 mg total) by mouth daily for 5 days. [facility] tamsulosin (FLOMAX) 0.4 mg Cap 24 hr capsule 2022-07 00:00: 00 06-22 23:59 :00 No .4mg QD Take 1 capsule (0.4 mg total) by mouth daily for 5 days. [facility] tamsulosin (FLOMAX) 0.4 mg Cap 24 hr capsule 2022-07 00:00: 00 06-22 23:59 :00 No .4mg QD Take 1 capsule (0.4 mg total) by mouth daily for 5 days. [facility] tamsulosin (FLOMAX) 0.4 mg Cap 24 hr capsule 2022-07 00:00: 00 06-22 23:59 :00 No .4mg QD Take 1 capsule (0.4 mg total) by mouth daily for 5 days. [facility] tamsulosin (FLOMAX) 0.4 mg Cap 24 hr capsule 2022-07 00:00: 00 06-22 23:59 :00 No .4mg QD Take 1 capsule (0.4 mg total) by mouth daily for 5 days. [facility] tamsulosin (FLOMAX) 0.4 mg Cap 24 hr capsule 2022-07 00:00: 00 06-22 23:59 :00 No .4mg QD Take 1 capsule (0.4 mg total) by mouth daily for 5 days. [facility] tamsulosin (FLOMAX) 0.4 mg Cap 24 hr capsule 2022-07 00:00: 00 06-22 23:59 :00 No .4mg QD Take 1 capsule (0.4 mg total) by mouth daily for 5 days. [facility] tamsulosin (FLOMAX) 0.4 mg Cap 24 hr capsule 2022-07 00:00: 00 06-22 23:59 :00 No .4mg QD Take 1 capsule (0.4 mg total) by mouth daily for 5 days. [facility] tamsulosin (FLOMAX) 0.4 mg Cap 24 hr capsule 2022-07 00:00: 00 06-22 23:59 :00 No .4mg QD Take 1 capsule (0.4 mg total) by mouth daily for 5 days. [facility] tamsulosin (FLOMAX) 0.4 mg Cap 24 hr capsule 2022-07 00:00: 00 06-22 23:59 :00 No .4mg QD Take 1 capsule (0.4 mg total) by mouth daily for 5 days. [facility] tamsulosin (FLOMAX) 0.4 mg Cap 24 hr capsule 2022-07 00:00: 00 06-22 23:59 :00 No .4mg QD Take 1 capsule (0.4 mg total) by mouth daily for 5 days. [facility] tamsulosin (FLOMAX) 0.4 mg Cap 24 hr capsule 2022-07 00:00: 00 06-22 23:59 :00 No .4mg QD Take 1 capsule (0.4 mg total) by mouth daily for 5 days. [facility] tamsulosin (FLOMAX) 0.4 mg Cap 24 hr capsule 2022-07 00:00: 00 06-22 23:59 :00 No .4mg QD Take 1 capsule (0.4 mg total) by mouth daily for 5 days. [facility] tamsulosin (FLOMAX) 0.4 mg Cap 24 hr capsule 2022-07 00:00: 00 06-22 23:59 :00 No .4mg QD Take 1 capsule (0.4 mg total) by mouth daily for 5 days. [facility] tamsulosin (FLOMAX) 0.4 mg Cap 24 hr capsule 2022-07 00:00: 00 06-22 23:59 :00 No .4mg QD Take 1 capsule (0.4 mg total) by mouth daily for 5 days. [facility] tamsulosin (FLOMAX) 0.4 mg Cap 24 hr capsule 2022-07 00:00: 00 06-22 23:59 :00 No .4mg QD Take 1 capsule (0.4 mg total) by mouth daily for 5 days. [facility] tamsulosin (FLOMAX) 0.4 mg Cap 24 hr capsule 2022-07 00:00: 00 06-22 23:59 :00 No .4mg QD Take 1 capsule (0.4 mg total) by mouth daily for 5 days. [facility] metoprolol succinate (TOPROL-XL) 25 MG 24 hr tablet 2022-07 19:45: 32 Yes 25mg QD Take 1 tablet (25 mg total) by mouth daily. [facility] varenicline (CHANTIX) 1 mg tablet 2022-07 19:45: 32 Yes 1mg Q.5D Take 1 tablet (1 mg total) by mouth 2 (two) times daily Give with meals and with a full glass of water.. [facility] albuterol HFA (VENTOLIN HFA) 90 mcg/actuati on inhaler 2022-07 19:45: 32 Yes 1{puff} Inhale 1 puff by mouth via inhaler every 6 (six) hours as needed for Wheezing. [facility] fluticasone -umeclidin- vilanter (Trelegy Ellipta) 200-62.5-25 mcg DsDv 2022-07 19:45: 32 Yes QD Inhale by mouth via inhaler daily. [facility] atorvastati n (LIPITOR) 20 MG tablet 2022-07 19:45: 32 Yes 20mg QD Take 1 tablet (20 mg total) by mouth daily. [facility] metoprolol succinate (TOPROL-XL) 25 MG 24 hr tablet 2022-07 19:45: 32 Yes 25mg QD Take 1 tablet (25 mg total) by mouth daily. [facility] varenicline (CHANTIX) 1 mg tablet 2022-07 19:45: 32 Yes 1mg Q.5D Take 1 tablet (1 mg total) by mouth 2 (two) times daily Give with meals and with a full glass of water.. [facility] albuterol HFA (VENTOLIN HFA) 90 mcg/actuati on inhaler 2022-07 19:45: 32 Yes 1{puff} Inhale 1 puff by mouth via inhaler every 6 (six) hours as needed for Wheezing. [facility] fluticasone -umeclidin- vilanter (Trelegy Ellipta) 200-62.5-25 mcg DsDv 2022-07 19:45: 32 Yes QD Inhale by mouth via inhaler daily. [facility] atorvastati n (LIPITOR) 20 MG tablet 2022-07 19:45: 32 Yes 20mg QD Take 1 tablet (20 mg total) by mouth daily. [facility] metoprolol succinate (TOPROL-XL) 25 MG 24 hr tablet 2022-07 19:45: 32 Yes 25mg QD Take 1 tablet (25 mg total) by mouth daily. [facility] varenicline (CHANTIX) 1 mg tablet 2022-07 19:45: 32 Yes 1mg Q.5D Take 1 tablet (1 mg total) by mouth 2 (two) times daily Give with meals and with a full glass of water.. [facility] albuterol HFA (VENTOLIN HFA) 90 mcg/actuati on inhaler 2022-07 19:45: 32 Yes 1{puff} Inhale 1 puff by mouth via inhaler every 6 (six) hours as needed for Wheezing. [facility] fluticasone -umeclidin- vilanter (Trelegy Ellipta) 200-62.5-25 mcg DsDv 2022-07 19:45: 32 Yes QD Inhale by mouth via inhaler daily. [facility] atorvastati n (LIPITOR) 20 MG tablet 2022-07 19:45: 32 Yes 20mg QD Take 1 tablet (20 mg total) by mouth daily. [facility] metoprolol succinate (TOPROL-XL) 25 MG 24 hr tablet 2022-07 19:45: 32 Yes 25mg QD Take 1 tablet (25 mg total) by mouth daily. [facility] varenicline (CHANTIX) 1 mg tablet 2022-07 19:45: 32 Yes 1mg Q.5D Take 1 tablet (1 mg total) by mouth 2 (two) times daily Give with meals and with a full glass of water.. [facility] albuterol HFA (VENTOLIN HFA) 90 mcg/actuati on inhaler 2022-07 19:45: 32 Yes 1{puff} Inhale 1 puff by mouth via inhaler every 6 (six) hours as needed for Wheezing. [facility] fluticasone -umeclidin- vilanter (Trelegy Ellipta) 200-62.5-25 mcg DsDv 2022-07 19:45: 32 Yes QD Inhale by mouth via inhaler daily. [facility] atorvastati n (LIPITOR) 20 MG tablet 2022-07 19:45: 32 Yes 20mg QD Take 1 tablet (20 mg total) by mouth daily. [facility] metoprolol succinate (TOPROL-XL) 25 MG 24 hr tablet 2022-07 19:45: 32 Yes 25mg QD Take 1 tablet (25 mg total) by mouth daily. [facility] varenicline (CHANTIX) 1 mg tablet 2022-07 19:45: 32 Yes 1mg Q.5D Take 1 tablet (1 mg total) by mouth 2 (two) times daily Give with meals and with a full glass of water.. [facility] albuterol HFA (VENTOLIN HFA) 90 mcg/actuati on inhaler 2022-07 19:45: 32 Yes 1{puff} Inhale 1 puff by mouth via inhaler every 6 (six) hours as needed for Wheezing. [facility] fluticasone -umeclidin- vilanter (Trelegy Ellipta) 200-62.5-25 mcg DsDv 2022-07 19:45: 32 Yes QD Inhale by mouth via inhaler daily. [facility] atorvastati n (LIPITOR) 20 MG tablet 2022-07 19:45: 32 Yes 20mg QD Take 1 tablet (20 mg total) by mouth daily. [facility] metoprolol succinate (TOPROL-XL) 25 MG 24 hr tablet 2022-07 19:45: 32 Yes 25mg QD Take 1 tablet (25 mg total) by mouth daily. [facility] varenicline (CHANTIX) 1 mg tablet 2022-07 19:45: 32 Yes 1mg Q.5D Take 1 tablet (1 mg total) by mouth 2 (two) times daily Give with meals and with a full glass of water.. [facility] albuterol HFA (VENTOLIN HFA) 90 mcg/actuati on inhaler 2022-07 19:45: 32 Yes 1{puff} Inhale 1 puff by mouth via inhaler every 6 (six) hours as needed for Wheezing. [facility] fluticasone -umeclidin- vilanter (Trelegy Ellipta) 200-62.5-25 mcg DsDv 2022-07 19:45: 32 Yes QD Inhale by mouth via inhaler daily. [facility] atorvastati n (LIPITOR) 20 MG tablet 2022-07 19:45: 32 Yes 20mg QD Take 1 tablet (20 mg total) by mouth daily. [facility] metoprolol succinate (TOPROL-XL) 25 MG 24 hr tablet 2022-07 19:45: 32 Yes 25mg QD Take 1 tablet (25 mg total) by mouth daily. [facility] varenicline (CHANTIX) 1 mg tablet 2022-07 19:45: 32 Yes 1mg Q.5D Take 1 tablet (1 mg total) by mouth 2 (two) times daily Give with meals and with a full glass of water.. [facility] albuterol HFA (VENTOLIN HFA) 90 mcg/actuati on inhaler 2022-07 19:45: 32 Yes 1{puff} Inhale 1 puff by mouth via inhaler every 6 (six) hours as needed for Wheezing. [facility] fluticasone -umeclidin- vilanter (Trelegy Ellipta) 200-62.5-25 mcg DsDv 2022-07 19:45: 32 Yes QD Inhale by mouth via inhaler daily. [facility] atorvastati n (LIPITOR) 20 MG tablet 2022-07 19:45: 32 Yes 20mg QD Take 1 tablet (20 mg total) by mouth daily. [facility] metoprolol succinate (TOPROL-XL) 25 MG 24 hr tablet 2022-07 19:45: 32 Yes 25mg QD Take 1 tablet (25 mg total) by mouth daily. [facility] varenicline (CHANTIX) 1 mg tablet 2022-07 19:45: 32 Yes 1mg Q.5D Take 1 tablet (1 mg total) by mouth 2 (two) times daily Give with meals and with a full glass of water.. [facility] albuterol HFA (VENTOLIN HFA) 90 mcg/actuati on inhaler 2022-07 19:45: 32 Yes 1{puff} Inhale 1 puff by mouth via inhaler every 6 (six) hours as needed for Wheezing. [facility] fluticasone -umeclidin- vilanter (Trelegy Ellipta) 200-62.5-25 mcg DsDv 2022-07 19:45: 32 Yes QD Inhale by mouth via inhaler daily. [facility] atorvastati n (LIPITOR) 20 MG tablet 2022-07 19:45: 32 Yes 20mg QD Take 1 tablet (20 mg total) by mouth daily. [facility] metoprolol succinate (TOPROL-XL) 25 MG 24 hr tablet 2022-07 19:45: 32 Yes 25mg QD Take 1 tablet (25 mg total) by mouth daily. [facility] varenicline (CHANTIX) 1 mg tablet 2022-07 19:45: 32 Yes 1mg Q.5D Take 1 tablet (1 mg total) by mouth 2 (two) times daily Give with meals and with a full glass of water.. [facility] albuterol HFA (VENTOLIN HFA) 90 mcg/actuati on inhaler 2022-07 19:45: 32 Yes 1{puff} Inhale 1 puff by mouth via inhaler every 6 (six) hours as needed for Wheezing. [facility] fluticasone -umeclidin- vilanter (Trelegy Ellipta) 200-62.5-25 mcg DsDv 2022-07 19:45: 32 Yes QD Inhale by mouth via inhaler daily. [facility] atorvastati n (LIPITOR) 20 MG tablet 2022-07 19:45: 32 Yes 20mg QD Take 1 tablet (20 mg total) by mouth daily. [facility] metoprolol succinate (TOPROL-XL) 25 MG 24 hr tablet 2022-07 19:45: 32 Yes 25mg QD Take 1 tablet (25 mg total) by mouth daily. [facility] varenicline (CHANTIX) 1 mg tablet 2022-07 19:45: 32 Yes 1mg Q.5D Take 1 tablet (1 mg total) by mouth 2 (two) times daily Give with meals and with a full glass of water.. [facility] albuterol HFA (VENTOLIN HFA) 90 mcg/actuati on inhaler 2022-07 19:45: 32 Yes 1{puff} Inhale 1 puff by mouth via inhaler every 6 (six) hours as needed for Wheezing. [facility] fluticasone -umeclidin- vilanter (Trelegy Ellipta) 200-62.5-25 mcg DsDv 2022-07 19:45: 32 Yes QD Inhale by mouth via inhaler daily. [facility] atorvastati n (LIPITOR) 20 MG tablet 2022-07 19:45: 32 Yes 20mg QD Take 1 tablet (20 mg total) by mouth daily. [facility] metoprolol succinate (TOPROL-XL) 25 MG 24 hr tablet 2022-07 19:45: 32 Yes 25mg QD Take 1 tablet (25 mg total) by mouth daily. [facility] varenicline (CHANTIX) 1 mg tablet 2022-07 19:45: 32 Yes 1mg Q.5D Take 1 tablet (1 mg total) by mouth 2 (two) times daily Give with meals and with a full glass of water.. [facility] albuterol HFA (VENTOLIN HFA) 90 mcg/actuati on inhaler 2022-07 19:45: 32 Yes 1{puff} Inhale 1 puff by mouth via inhaler every 6 (six) hours as needed for Wheezing. [facility] fluticasone -umeclidin- vilanter (Trelegy Ellipta) 200-62.5-25 mcg DsDv 2022-07 19:45: 32 Yes QD Inhale by mouth via inhaler daily. [facility] atorvastati n (LIPITOR) 20 MG tablet 2022-07 19:45: 32 Yes 20mg QD Take 1 tablet (20 mg total) by mouth daily. [facility] metoprolol succinate (TOPROL-XL) 25 MG 24 hr tablet 2022-07 19:45: 32 Yes 25mg QD Take 1 tablet (25 mg total) by mouth daily. [facility] varenicline (CHANTIX) 1 mg tablet 2022-07 19:45: 32 Yes 1mg Q.5D Take 1 tablet (1 mg total) by mouth 2 (two) times daily Give with meals and with a full glass of water.. [facility] albuterol HFA (VENTOLIN HFA) 90 mcg/actuati on inhaler 2022-07 19:45: 32 Yes 1{puff} Inhale 1 puff by mouth via inhaler every 6 (six) hours as needed for Wheezing. [facility] fluticasone -umeclidin- vilanter (Trelegy Ellipta) 200-62.5-25 mcg DsDv 2022-07 19:45: 32 Yes QD Inhale by mouth via inhaler daily. [facility] atorvastati n (LIPITOR) 20 MG tablet 2022-07 19:45: 32 Yes 20mg QD Take 1 tablet (20 mg total) by mouth daily. [facility] metoprolol succinate (TOPROL-XL) 25 MG 24 hr tablet 2022-07 19:45: 32 Yes 25mg QD Take 1 tablet (25 mg total) by mouth daily. [facility] varenicline (CHANTIX) 1 mg tablet 2022-07 19:45: 32 Yes 1mg Q.5D Take 1 tablet (1 mg total) by mouth 2 (two) times daily Give with meals and with a full glass of water.. [facility] albuterol HFA (VENTOLIN HFA) 90 mcg/actuati on inhaler 2022-07 19:45: 32 Yes 1{puff} Inhale 1 puff by mouth via inhaler every 6 (six) hours as needed for Wheezing. [facility] fluticasone -umeclidin- vilanter (Trelegy Ellipta) 200-62.5-25 mcg DsDv 2022-07 19:45: 32 Yes QD Inhale by mouth via inhaler daily. [facility] atorvastati n (LIPITOR) 20 MG tablet 2022-07 19:45: 32 Yes 20mg QD Take 1 tablet (20 mg total) by mouth daily. [facility] metoprolol succinate (TOPROL-XL) 25 MG 24 hr tablet 2022-07 19:45: 32 Yes 25mg QD Take 1 tablet (25 mg total) by mouth daily. [facility] varenicline (CHANTIX) 1 mg tablet 2022-07 19:45: 32 Yes 1mg Q.5D Take 1 tablet (1 mg total) by mouth 2 (two) times daily Give with meals and with a full glass of water.. [facility] albuterol HFA (VENTOLIN HFA) 90 mcg/actuati on inhaler 2022-07 19:45: 32 Yes 1{puff} Inhale 1 puff by mouth via inhaler every 6 (six) hours as needed for Wheezing. [facility] fluticasone -umeclidin- vilanter (Trelegy Ellipta) 200-62.5-25 mcg DsDv 2022-07 19:45: 32 Yes QD Inhale by mouth via inhaler daily. [facility] atorvastati n (LIPITOR) 20 MG tablet 2022-07 19:45: 32 Yes 20mg QD Take 1 tablet (20 mg total) by mouth daily. [facility] metoprolol succinate (TOPROL-XL) 25 MG 24 hr tablet 2022-07 19:45: 32 Yes 25mg QD Take 1 tablet (25 mg total) by mouth daily. [facility] varenicline (CHANTIX) 1 mg tablet 2022-07 19:45: 32 Yes 1mg Q.5D Take 1 tablet (1 mg total) by mouth 2 (two) times daily Give with meals and with a full glass of water.. [facility] albuterol HFA (VENTOLIN HFA) 90 mcg/actuati on inhaler 2022-07 19:45: 32 Yes 1{puff} Inhale 1 puff by mouth via inhaler every 6 (six) hours as needed for Wheezing. [facility] fluticasone -umeclidin- vilanter (Trelegy Ellipta) 200-62.5-25 mcg DsDv 2022-07 19:45: 32 Yes QD Inhale by mouth via inhaler daily. [facility] atorvastati n (LIPITOR) 20 MG tablet 2022-07 19:45: 32 Yes 20mg QD Take 1 tablet (20 mg total) by mouth daily. [facility] metoprolol succinate (TOPROL-XL) 25 MG 24 hr tablet 2022-07 19:45: 32 Yes 25mg QD Take 1 tablet (25 mg total) by mouth daily. [facility] varenicline (CHANTIX) 1 mg tablet 2022-07 19:45: 32 Yes 1mg Q.5D Take 1 tablet (1 mg total) by mouth 2 (two) times daily Give with meals and with a full glass of water.. [facility] albuterol HFA (VENTOLIN HFA) 90 mcg/actuati on inhaler 2022-07 19:45: 32 Yes 1{puff} Inhale 1 puff by mouth via inhaler every 6 (six) hours as needed for Wheezing. [facility] fluticasone -umeclidin- vilanter (Trelegy Ellipta) 200-62.5-25 mcg DsDv 2022-07 19:45: 32 Yes QD Inhale by mouth via inhaler daily. [facility] atorvastati n (LIPITOR) 20 MG tablet 2022-07 19:45: 32 Yes 20mg QD Take 1 tablet (20 mg total) by mouth daily. [facility] metoprolol succinate (TOPROL-XL) 25 MG 24 hr tablet 2022-07 19:45: 32 Yes 25mg QD Take 1 tablet (25 mg total) by mouth daily. [facility] varenicline (CHANTIX) 1 mg tablet 2022-07 19:45: 32 Yes 1mg Q.5D Take 1 tablet (1 mg total) by mouth 2 (two) times daily Give with meals and with a full glass of water.. [facility] albuterol HFA (VENTOLIN HFA) 90 mcg/actuati on inhaler 2022-07 19:45: 32 Yes 1{puff} Inhale 1 puff by mouth via inhaler every 6 (six) hours as needed for Wheezing. [facility] fluticasone -umeclidin- vilanter (Trelegy Ellipta) 200-62.5-25 mcg DsDv 2022-07 19:45: 32 Yes QD Inhale by mouth via inhaler daily. [facility] atorvastati n (LIPITOR) 20 MG tablet 2022-07 19:45: 32 Yes 20mg QD Take 1 tablet (20 mg total) by mouth daily. [facility] metoprolol succinate (TOPROL-XL) 25 MG 24 hr tablet 2022-07 19:45: 32 Yes 25mg QD Take 1 tablet (25 mg total) by mouth daily. [facility] varenicline (CHANTIX) 1 mg tablet 2022-07 19:45: 32 Yes 1mg Q.5D Take 1 tablet (1 mg total) by mouth 2 (two) times daily Give with meals and with a full glass of water.. [facility] albuterol HFA (VENTOLIN HFA) 90 mcg/actuati on inhaler 2022-07 19:45: 32 Yes 1{puff} Inhale 1 puff by mouth via inhaler every 6 (six) hours as needed for Wheezing. [facility] fluticasone -umeclidin- vilanter (Trelegy Ellipta) 200-62.5-25 mcg DsDv 2022-07 19:45: 32 Yes QD Inhale by mouth via inhaler daily. [facility] atorvastati n (LIPITOR) 20 MG tablet 2022-07 19:45: 32 Yes 20mg QD Take 1 tablet (20 mg total) by mouth daily. [facility] metoprolol succinate (TOPROL-XL) 25 MG 24 hr tablet 2022-07 19:45: 32 Yes 25mg QD Take 1 tablet (25 mg total) by mouth daily. [facility] varenicline (CHANTIX) 1 mg tablet 2022-07 19:45: 32 Yes 1mg Q.5D Take 1 tablet (1 mg total) by mouth 2 (two) times daily Give with meals and with a full glass of water.. [facility] albuterol HFA (VENTOLIN HFA) 90 mcg/actuati on inhaler 2022-07 19:45: 32 Yes 1{puff} Inhale 1 puff by mouth via inhaler every 6 (six) hours as needed for Wheezing. [facility] fluticasone -umeclidin- vilanter (Trelegy Ellipta) 200-62.5-25 mcg DsDv 2022-07 19:45: 32 Yes QD Inhale by mouth via inhaler daily. [facility] atorvastati n (LIPITOR) 20 MG tablet 2022-07 19:45: 32 Yes 20mg QD Take 1 tablet (20 mg total) by mouth daily. [facility] metoprolol succinate (TOPROL-XL) 25 MG 24 hr tablet 2022-07 19:45: 32 Yes 25mg QD Take 1 tablet (25 mg total) by mouth daily. [facility] varenicline (CHANTIX) 1 mg tablet 2022-07 19:45: 32 Yes 1mg Q.5D Take 1 tablet (1 mg total) by mouth 2 (two) times daily Give with meals and with a full glass of water.. [facility] albuterol HFA (VENTOLIN HFA) 90 mcg/actuati on inhaler 2022-07 19:45: 32 Yes 1{puff} Inhale 1 puff by mouth via inhaler every 6 (six) hours as needed for Wheezing. [facility] fluticasone -umeclidin- vilanter (Trelegy Ellipta) 200-62.5-25 mcg DsDv 2022-07 19:45: 32 Yes QD Inhale by mouth via inhaler daily. [facility] atorvastati n (LIPITOR) 20 MG tablet 2022-07 19:45: 32 Yes 20mg QD Take 1 tablet (20 mg total) by mouth daily. [facility] metoprolol succinate (TOPROL-XL) 25 MG 24 hr tablet 2022-07 19:45: 32 Yes 25mg QD Take 1 tablet (25 mg total) by mouth daily. [facility] varenicline (CHANTIX) 1 mg tablet 2022-07 19:45: 32 Yes 1mg Q.5D Take 1 tablet (1 mg total) by mouth 2 (two) times daily Give with meals and with a full glass of water.. [facility] albuterol HFA (VENTOLIN HFA) 90 mcg/actuati on inhaler 2022-07 19:45: 32 Yes 1{puff} Inhale 1 puff by mouth via inhaler every 6 (six) hours as needed for Wheezing. [facility] fluticasone -umeclidin- vilanter (Trelegy Ellipta) 200-62.5-25 mcg DsDv 2022-07 19:45: 32 Yes QD Inhale by mouth via inhaler daily. [facility] atorvastati n (LIPITOR) 20 MG tablet 2022-07 19:45: 32 Yes 20mg QD Take 1 tablet (20 mg total) by mouth daily. [facility] metoprolol succinate (TOPROL-XL) 25 MG 24 hr tablet 2022-07 19:45: 32 Yes 25mg QD Take 1 tablet (25 mg total) by mouth daily. [facility] varenicline (CHANTIX) 1 mg tablet 2022-07 19:45: 32 Yes 1mg Q.5D Take 1 tablet (1 mg total) by mouth 2 (two) times daily Give with meals and with a full glass of water.. [facility] albuterol HFA (VENTOLIN HFA) 90 mcg/actuati on inhaler 2022-07 19:45: 32 Yes 1{puff} Inhale 1 puff by mouth via inhaler every 6 (six) hours as needed for Wheezing. [facility] fluticasone -umeclidin- vilanter (Trelegy Ellipta) 200-62.5-25 mcg DsDv 2022-07 19:45: 32 Yes QD Inhale by mouth via inhaler daily. [facility] atorvastati n (LIPITOR) 20 MG tablet 2022-07 19:45: 32 Yes 20mg QD Take 1 tablet (20 mg total) by mouth daily. [facility] metoprolol succinate (TOPROL-XL) 25 MG 24 hr tablet 2022-07 19:45: 32 Yes 25mg QD Take 1 tablet (25 mg total) by mouth daily. [facility] varenicline (CHANTIX) 1 mg tablet 2022-07 19:45: 32 Yes 1mg Q.5D Take 1 tablet (1 mg total) by mouth 2 (two) times daily Give with meals and with a full glass of water.. [facility] albuterol HFA (VENTOLIN HFA) 90 mcg/actuati on inhaler 2022-07 19:45: 32 Yes 1{puff} Inhale 1 puff by mouth via inhaler every 6 (six) hours as needed for Wheezing. [facility] fluticasone -umeclidin- vilanter (Trelegy Ellipta) 200-62.5-25 mcg DsDv 2022-07 19:45: 32 Yes QD Inhale by mouth via inhaler daily. [facility] atorvastati n (LIPITOR) 20 MG tablet 2022-07 19:45: 32 Yes 20mg QD Take 1 tablet (20 mg total) by mouth daily. [facility] acetaminoph en-codeine (TYLENOL #3) 300-30 mg per tablet 2022-07 18:02: 00 06-16 00:00 :00 No 1{tbl} Take 1 tablet by mouth every 4 (four) hours as needed for Pain. [facility] acetaminoph en-codeine (TYLENOL #3) 300-30 mg per tablet 2022-07 18:02: 00 06-16 00:00 :00 No 1{tbl} Take 1 tablet by mouth every 4 (four) hours as needed for Pain. [facility] acetaminoph en-codeine (TYLENOL #3) 300-30 mg per tablet 2022-07 18:02: 00 06-16 00:00 :00 No 1{tbl} Take 1 tablet by mouth every 4 (four) hours as needed for Pain. [facility] acetaminoph en-codeine (TYLENOL #3) 300-30 mg per tablet 2022-07 18:02: 00 06-16 00:00 :00 No 1{tbl} Take 1 tablet by mouth every 4 (four) hours as needed for Pain. [facility] acetaminoph en-codeine (TYLENOL #3) 300-30 mg per tablet 2022-07 18:02: 00 06-16 00:00 :00 No 1{tbl} Take 1 tablet by mouth every 4 (four) hours as needed for Pain. [facility] acetaminoph en-codeine (TYLENOL #3) 300-30 mg per tablet 2022-07 18:02: 00 06-16 00:00 :00 No 1{tbl} Take 1 tablet by mouth every 4 (four) hours as needed for Pain. [facility] acetaminoph en-codeine (TYLENOL #3) 300-30 mg per tablet 2022-07 18:02: 06-16 00:00 :00 No 1{tbl} Take 1 tablet by mouth every 4 (four) hours as needed for Pain. [facility] acetaminoph en-codeine (TYLENOL #3) 300-30 mg per tablet 2022-07 18:02: 00 06-16 00:00 :00 No 1{tbl} Take 1 tablet by mouth every 4 (four) hours as needed for Pain. [facility] acetaminoph en-codeine (TYLENOL #3) 300-30 mg per tablet 2022-07 18:02: 00 06-16 00:00 :00 No 1{tbl} Take 1 tablet by mouth every 4 (four) hours as needed for Pain. [facility] acetaminoph en-codeine (TYLENOL #3) 300-30 mg per tablet 2022-07 18:02: 00 06-16 00:00 :00 No 1{tbl} Take 1 tablet by mouth every 4 (four) hours as needed for Pain. [facility] acetaminoph en-codeine (TYLENOL #3) 300-30 mg per tablet 2022-07 18:02: 00 06-16 00:00 :00 No 1{tbl} Take 1 tablet by mouth every 4 (four) hours as needed for Pain. [facility] acetaminoph en-codeine (TYLENOL #3) 300-30 mg per tablet 2022-07 18:02: 00 06-16 00:00 :00 No 1{tbl} Take 1 tablet by mouth every 4 (four) hours as needed for Pain. [facility] acetaminoph en-codeine (TYLENOL #3) 300-30 mg per tablet 2022-07 18:02: 00 06-16 00:00 :00 No 1{tbl} Take 1 tablet by mouth every 4 (four) hours as needed for Pain. [facility] acetaminoph en-codeine (TYLENOL #3) 300-30 mg per tablet 2022-07 18:02: 00 06-16 00:00 :00 No 1{tbl} Take 1 tablet by mouth every 4 (four) hours as needed for Pain. [facility] acetaminoph en-codeine (TYLENOL #3) 300-30 mg per tablet 2022-07 18:02: 00 06-16 00:00 :00 No 1{tbl} Take 1 tablet by mouth every 4 (four) hours as needed for Pain. [facility] acetaminoph en-codeine (TYLENOL #3) 300-30 mg per tablet 2022-07 18:02: 00 06-16 00:00 :00 No 1{tbl} Take 1 tablet by mouth every 4 (four) hours as needed for Pain. [facility] acetaminoph en-codeine (TYLENOL #3) 300-30 mg per tablet 2022-07 18:02: 00 06-16 00:00 :00 No 1{tbl} Take 1 tablet by mouth every 4 (four) hours as needed for Pain. [facility] acetaminoph en-codeine (TYLENOL #3) 300-30 mg per tablet 2022-07 18:02: 00 06-16 00:00 :00 No 1{tbl} Take 1 tablet by mouth every 4 (four) hours as needed for Pain. [facility] acetaminoph en-codeine (TYLENOL #3) 300-30 mg per tablet 2022-07 18:02: 00 06-16 00:00 :00 No 1{tbl} Take 1 tablet by mouth every 4 (four) hours as needed for Pain. [facility] acetaminoph en-codeine (TYLENOL #3) 300-30 mg per tablet 2022-07 18:02: 00 06-16 00:00 :00 No 1{tbl} Take 1 tablet by mouth every 4 (four) hours as needed for Pain. [facility] acetaminoph en-codeine (TYLENOL #3) 300-30 mg per tablet 2022-07 18:02: 00 06-16 00:00 :00 No 1{tbl} Take 1 tablet by mouth every 4 (four) hours as needed for Pain. [facility] acetaminoph en-codeine (TYLENOL #3) 300-30 mg per tablet 2022-07 18:02: 00 06-16 00:00 :00 No 1{tbl} Take 1 tablet by mouth every 4 (four) hours as needed for Pain. [facility] acetaminoph en-codeine (TYLENOL #3) 300-30 mg per tablet 2022-07 18:02: 00 06-16 00:00 :00 No 1{tbl} Take 1 tablet by mouth every 4 (four) hours as needed for Pain. [facility] acetaminoph en-codeine (TYLENOL #3) 300-30 mg per tablet 2022-07 18:02: 00 06-16 00:00 :00 No 1{tbl} Take 1 tablet by mouth every 4 (four) hours as needed for Pain. [facility] acetaminoph en-codeine (TYLENOL #3) 300-30 mg per tablet 2022-07 18:02: 00 06-16 00:00 :00 No 1{tbl} Take 1 tablet by mouth every 4 (four) hours as needed for Pain. [facility] acetaminoph en-codeine (TYLENOL #3) 300-30 mg per tablet 2022-07 18:02: 00 06-16 00:00 :00 No 1{tbl} Take 1 tablet by mouth every 4 (four) hours as needed for Pain. [facility] acetaminoph en-codeine (TYLENOL #3) 300-30 mg per tablet 2022-07 18:02: 00 06-16 00:00 :00 No 1{tbl} Take 1 tablet by mouth every 4 (four) hours as needed for Pain. [facility] acetaminoph en-codeine (TYLENOL #3) 300-30 mg per tablet 2022-07 18:02: 00 06-16 00:00 :00 No 1{tbl} Take 1 tablet by mouth every 4 (four) hours as needed for Pain. [facility] acetaminoph en-codeine (TYLENOL #3) 300-30 mg per tablet 2022-07 18:02: 00 06-16 00:00 :00 No 1{tbl} Take 1 tablet by mouth every 4 (four) hours as needed for Pain. [facility] acetaminoph en-codeine (TYLENOL #3) 300-30 mg per tablet 2022-07 18:02: 00 06-16 00:00 :00 No 1{tbl} Take 1 tablet by mouth every 4 (four) hours as needed for Pain. [facility] acetaminoph en-codeine (TYLENOL #3) 300-30 mg per tablet 2022-07 18:02: 00 06-16 00:00 :00 No 1{tbl} Take 1 tablet by mouth every 4 (four) hours as needed for Pain. [facility] DULoxetine (CYMBALTA) 30 MG capsule 2022-07 00:00: 00 09-14 23:59 :00 No 30mg QD Take 1 capsule (30 mg total) by mouth daily for 90 days. [facility] DULoxetine (CYMBALTA) 30 MG capsule 2022-07 00:00: 00 09-14 23:59 :00 No 30mg QD Take 1 capsule (30 mg total) by mouth daily for 90 days. [facility] DULoxetine (CYMBALTA) 30 MG capsule 2022-07 00:00: 00 09-14 23:59 :00 No 30mg QD Take 1 capsule (30 mg total) by mouth daily for 90 days. [facility] DULoxetine (CYMBALTA) 30 MG capsule 2022-07 00:00: 00 09-14 23:59 :00 No 30mg QD Take 1 capsule (30 mg total) by mouth daily for 90 days. [facility] DULoxetine (CYMBALTA) 30 MG capsule 2022-07 00:00: 00 09-14 23:59 :00 No 30mg QD Take 1 capsule (30 mg total) by mouth daily for 90 days. [facility] DULoxetine (CYMBALTA) 30 MG capsule 2022-07 00:00: 00 09-14 23:59 :00 No 30mg QD Take 1 capsule (30 mg total) by mouth daily for 90 days. [facility] DULoxetine (CYMBALTA) 30 MG capsule 2022-07 00:00: 00 09-14 23:59 :00 No 30mg QD Take 1 capsule (30 mg total) by mouth daily for 90 days. [facility] DULoxetine (CYMBALTA) 30 MG capsule 2022-07 00:00: 00 09-14 23:59 :00 No 30mg QD Take 1 capsule (30 mg total) by mouth daily for 90 days. [facility] DULoxetine (CYMBALTA) 30 MG capsule 2022-07 00:00: 00 09-14 23:59 :00 No 30mg QD Take 1 capsule (30 mg total) by mouth daily for 90 days. [facility] DULoxetine (CYMBALTA) 30 MG capsule 2022-07 00:00: 00 09-14 23:59 :00 No 30mg QD Take 1 capsule (30 mg total) by mouth daily for 90 days. [facility] DULoxetine (CYMBALTA) 30 MG capsule 2022-07 00:00: 00 09-14 23:59 :00 No 30mg QD Take 1 capsule (30 mg total) by mouth daily for 90 days. [facility] DULoxetine (CYMBALTA) 30 MG capsule 2022-07 00:00: 00 09-14 23:59 :00 No 30mg QD Take 1 capsule (30 mg total) by mouth daily for 90 days. [facility] DULoxetine (CYMBALTA) 30 MG capsule 2022-07 00:00: 00 09-14 23:59 :00 No 30mg QD Take 1 capsule (30 mg total) by mouth daily for 90 days. [facility] DULoxetine (CYMBALTA) 30 MG capsule 2022-07 00:00: 00 09-14 23:59 :00 No 30mg QD Take 1 capsule (30 mg total) by mouth daily for 90 days. [facility] DULoxetine (CYMBALTA) 30 MG capsule 2022-07 00:00: 00 09-14 23:59 :00 No 30mg QD Take 1 capsule (30 mg total) by mouth daily for 90 days. [facility] DULoxetine (CYMBALTA) 30 MG capsule 2022-07 00:00: 00 09-14 23:59 :00 No 30mg QD Take 1 capsule (30 mg total) by mouth daily for 90 days. [facility] DULoxetine (CYMBALTA) 30 MG capsule 2022-07 00:00: 00 09-14 23:59 :00 No 30mg QD Take 1 capsule (30 mg total) by mouth daily for 90 days. [facility] DULoxetine (CYMBALTA) 30 MG capsule 2022-07 00:00: 00 09-14 23:59 :00 No 30mg QD Take 1 capsule (30 mg total) by mouth daily for 90 days. [facility] DULoxetine (CYMBALTA) 30 MG capsule 2022-07 00:00: 00 09-14 23:59 :00 No 30mg QD Take 1 capsule (30 mg total) by mouth daily for 90 days. [facility] DULoxetine (CYMBALTA) 30 MG capsule 2022-07 00:00: 00 09-14 23:59 :00 No 30mg QD Take 1 capsule (30 mg total) by mouth daily for 90 days. [facility] DULoxetine (CYMBALTA) 30 MG capsule 2022-07 00:00: 00 09-14 23:59 :00 No 30mg QD Take 1 capsule (30 mg total) by mouth daily for 90 days. [facility] DULoxetine (CYMBALTA) 30 MG capsule 2022-07 00:00: 00 09-14 23:59 :00 No 30mg QD Take 1 capsule (30 mg total) by mouth daily for 90 days. [facility] DULoxetine (CYMBALTA) 30 MG capsule 2022-07 00:00: 00 09-14 23:59 :00 No 30mg QD Take 1 capsule (30 mg total) by mouth daily for 90 days. [facility] DULoxetine (CYMBALTA) 30 MG capsule 2022-07 00:00: 00 09-08 00:00 :00 No 30mg QD Take 1 capsule (30 mg total) by mouth daily for 90 days. [facility] DULoxetine (CYMBALTA) 30 MG capsule 2022-07 00:00: 00 09-08 00:00 :00 No 30mg QD Take 1 capsule (30 mg total) by mouth daily for 90 days. [facility] DULoxetine (CYMBALTA) 30 MG capsule 2022-07 00:00: 00 09-08 00:00 :00 No 30mg QD Take 1 capsule (30 mg total) by mouth daily for 90 days. [facility] DULoxetine (CYMBALTA) 30 MG capsule 2022-07 00:00: 00 09-08 00:00 :00 No 30mg QD Take 1 capsule (30 mg total) by mouth daily for 90 days. [facility] DULoxetine (CYMBALTA) 30 MG capsule 2022-07 00:00: 00 09-08 00:00 :00 No 30mg QD Take 1 capsule (30 mg total) by mouth daily for 90 days. [facility] DULoxetine (CYMBALTA) 30 MG capsule 2022-07 00:00: 00 09-08 00:00 :00 No 30mg QD Take 1 capsule (30 mg total) by mouth daily for 90 days. [facility] DULoxetine (CYMBALTA) 30 MG capsule 2022-07 00:00: 00 09-08 00:00 :00 No 30mg QD Take 1 capsule (30 mg total) by mouth daily for 90 days. [facility] DULoxetine (CYMBALTA) 30 MG capsule 2022-07 00:00: 00 09-08 00:00 :00 No 30mg QD Take 1 capsule (30 mg total) by mouth daily for 90 days. [facility] metroNIDAZO LE (FLAGYL) 500 MG tablet 2022-07 00:00: 00 07-04 23:59 :00 No 500mg Take 1 tablet (500 mg total) by mouth every 8 (eight) hours for 18 days. [facility] ciprofloxac in HCl (CIPRO) 500 MG tablet 2022-07 00:00: 00 07-04 23:59 :00 No 500mg Q.5D Take 1 tablet (500 mg total) by mouth 2 (two) times daily for 18 days. [facility] metroNIDAZO LE (FLAGYL) 500 MG tablet 2022-07 00:00: 00 07-04 23:59 :00 No 500mg Take 1 tablet (500 mg total) by mouth every 8 (eight) hours for 18 days. [facility] ciprofloxac in HCl (CIPRO) 500 MG tablet 2022-07 00:00: 00 07-04 23:59 :00 No 500mg Q.5D Take 1 tablet (500 mg total) by mouth 2 (two) times daily for 18 days. [facility] metroNIDAZO LE (FLAGYL) 500 MG tablet 2022-07 00:00: 00 07-04 23:59 :00 No 500mg Take 1 tablet (500 mg total) by mouth every 8 (eight) hours for 18 days. [facility] ciprofloxac in HCl (CIPRO) 500 MG tablet 2022-07 00:00: 00 07-04 23:59 :00 No 500mg Q.5D Take 1 tablet (500 mg total) by mouth 2 (two) times daily for 18 days. [facility] metroNIDAZO LE (FLAGYL) 500 MG tablet 2022-07 00:00: 00 07-04 23:59 :00 No 500mg Take 1 tablet (500 mg total) by mouth every 8 (eight) hours for 18 days. [facility] ciprofloxac in HCl (CIPRO) 500 MG tablet 2022-07 00:00: 00 07-04 23:59 :00 No 500mg Q.5D Take 1 tablet (500 mg total) by mouth 2 (two) times daily for 18 days. [facility] metroNIDAZO LE (FLAGYL) 500 MG tablet 2022-07 00:00: 00 07-04 23:59 :00 No 500mg Take 1 tablet (500 mg total) by mouth every 8 (eight) hours for 18 days. [facility] ciprofloxac in HCl (CIPRO) 500 MG tablet 2022-07 00:00: 00 07-04 23:59 :00 No 500mg Q.5D Take 1 tablet (500 mg total) by mouth 2 (two) times daily for 18 days. [facility] metroNIDAZO LE (FLAGYL) 500 MG tablet 2022-07 00:00: 00 07-04 23:59 :00 No 500mg Take 1 tablet (500 mg total) by mouth every 8 (eight) hours for 18 days. [facility] ciprofloxac in HCl (CIPRO) 500 MG tablet 2022-07 00:00: 00 07-04 23:59 :00 No 500mg Q.5D Take 1 tablet (500 mg total) by mouth 2 (two) times daily for 18 days. [facility] metroNIDAZO LE (FLAGYL) 500 MG tablet 2022-07 00:00: 00 07-04 23:59 :00 No 500mg Take 1 tablet (500 mg total) by mouth every 8 (eight) hours for 18 days. [facility] ciprofloxac in HCl (CIPRO) 500 MG tablet 2022-07 00:00: 00 07-04 23:59 :00 No 500mg Q.5D Take 1 tablet (500 mg total) by mouth 2 (two) times daily for 18 days. [facility] metroNIDAZO LE (FLAGYL) 500 MG tablet 2022-07 00:00: 00 07-04 23:59 :00 No 500mg Take 1 tablet (500 mg total) by mouth every 8 (eight) hours for 18 days. [facility] ciprofloxac in HCl (CIPRO) 500 MG tablet 2022-07 00:00: 00 07-04 23:59 :00 No 500mg Q.5D Take 1 tablet (500 mg total) by mouth 2 (two) times daily for 18 days. [facility] metroNIDAZO LE (FLAGYL) 500 MG tablet 2022-07 00:00: 00 07-04 23:59 :00 No 500mg Take 1 tablet (500 mg total) by mouth every 8 (eight) hours for 18 days. [facility] ciprofloxac in HCl (CIPRO) 500 MG tablet 2022-07 00:00: 00 07-04 23:59 :00 No 500mg Q.5D Take 1 tablet (500 mg total) by mouth 2 (two) times daily for 18 days. [facility] metroNIDAZO LE (FLAGYL) 500 MG tablet 2022-07 00:00: 00 07-04 23:59 :00 No 500mg Take 1 tablet (500 mg total) by mouth every 8 (eight) hours for 18 days. [facility] ciprofloxac in HCl (CIPRO) 500 MG tablet 2022-07 00:00: 00 07-04 23:59 :00 No 500mg Q.5D Take 1 tablet (500 mg total) by mouth 2 (two) times daily for 18 days. [facility] metroNIDAZO LE (FLAGYL) 500 MG tablet 2022-07 00:00: 00 07-04 23:59 :00 No 500mg Take 1 tablet (500 mg total) by mouth every 8 (eight) hours for 18 days. [facility] ciprofloxac in HCl (CIPRO) 500 MG tablet 2022-07 00:00: 00 07-04 23:59 :00 No 500mg Q.5D Take 1 tablet (500 mg total) by mouth 2 (two) times daily for 18 days. [facility] metroNIDAZO LE (FLAGYL) 500 MG tablet 2022-07 00:00: 00 07-04 23:59 :00 No 500mg Take 1 tablet (500 mg total) by mouth every 8 (eight) hours for 18 days. [facility] ciprofloxac in HCl (CIPRO) 500 MG tablet 2022-07 00:00: 00 07-04 23:59 :00 No 500mg Q.5D Take 1 tablet (500 mg total) by mouth 2 (two) times daily for 18 days. [facility] metroNIDAZO LE (FLAGYL) 500 MG tablet 2022-07 00:00: 00 07-04 23:59 :00 No 500mg Take 1 tablet (500 mg total) by mouth every 8 (eight) hours for 18 days. [facility] ciprofloxac in HCl (CIPRO) 500 MG tablet 2022-07 00:00: 00 07-04 23:59 :00 No 500mg Q.5D Take 1 tablet (500 mg total) by mouth 2 (two) times daily for 18 days. [facility] metroNIDAZO LE (FLAGYL) 500 MG tablet 2022-07 00:00: 00 07-04 23:59 :00 No 500mg Take 1 tablet (500 mg total) by mouth every 8 (eight) hours for 18 days. [facility] ciprofloxac in HCl (CIPRO) 500 MG tablet 2022-07 00:00: 00 07-04 23:59 :00 No 500mg Q.5D Take 1 tablet (500 mg total) by mouth 2 (two) times daily for 18 days. [facility] metroNIDAZO LE (FLAGYL) 500 MG tablet 2022-07 00:00: 00 07-04 23:59 :00 No 500mg Take 1 tablet (500 mg total) by mouth every 8 (eight) hours for 18 days. [facility] ciprofloxac in HCl (CIPRO) 500 MG tablet 2022-07 00:00: 00 07-04 23:59 :00 No 500mg Q.5D Take 1 tablet (500 mg total) by mouth 2 (two) times daily for 18 days. [facility] metroNIDAZO LE (FLAGYL) 500 MG tablet 2022-07 00:00: 00 07-04 23:59 :00 No 500mg Take 1 tablet (500 mg total) by mouth every 8 (eight) hours for 18 days. [facility] ciprofloxac in HCl (CIPRO) 500 MG tablet 2022-07 00:00: 00 07-04 23:59 :00 No 500mg Q.5D Take 1 tablet (500 mg total) by mouth 2 (two) times daily for 18 days. [facility] metroNIDAZO LE (FLAGYL) 500 MG tablet 2022-07 00:00: 00 07-04 23:59 :00 No 500mg Take 1 tablet (500 mg total) by mouth every 8 (eight) hours for 18 days. [facility] ciprofloxac in HCl (CIPRO) 500 MG tablet 2022-07 00:00: 00 07-04 23:59 :00 No 500mg Q.5D Take 1 tablet (500 mg total) by mouth 2 (two) times daily for 18 days. [facility] metroNIDAZO LE (FLAGYL) 500 MG tablet 2022-07 00:00: 00 07-04 23:59 :00 No 500mg Take 1 tablet (500 mg total) by mouth every 8 (eight) hours for 18 days. [facility] ciprofloxac in HCl (CIPRO) 500 MG tablet 2022-07 00:00: 00 07-04 23:59 :00 No 500mg Q.5D Take 1 tablet (500 mg total) by mouth 2 (two) times daily for 18 days. [facility] metroNIDAZO LE (FLAGYL) 500 MG tablet 2022-07 00:00: 00 07-04 23:59 :00 No 500mg Take 1 tablet (500 mg total) by mouth every 8 (eight) hours for 18 days. [facility] ciprofloxac in HCl (CIPRO) 500 MG tablet 2022-07 00:00: 00 07-04 23:59 :00 No 500mg Q.5D Take 1 tablet (500 mg total) by mouth 2 (two) times daily for 18 days. [facility] metroNIDAZO LE (FLAGYL) 500 MG tablet 2022-07 00:00: 00 07-04 23:59 :00 No 500mg Take 1 tablet (500 mg total) by mouth every 8 (eight) hours for 18 days. [facility] ciprofloxac in HCl (CIPRO) 500 MG tablet 2022-07 00:00: 00 07-04 23:59 :00 No 500mg Q.5D Take 1 tablet (500 mg total) by mouth 2 (two) times daily for 18 days. [facility] metroNIDAZO LE (FLAGYL) 500 MG tablet 2022-07 00:00: 00 07-04 23:59 :00 No 500mg Take 1 tablet (500 mg total) by mouth every 8 (eight) hours for 18 days. [facility] ciprofloxac in HCl (CIPRO) 500 MG tablet 2022-07 00:00: 00 07-04 23:59 :00 No 500mg Q.5D Take 1 tablet (500 mg total) by mouth 2 (two) times daily for 18 days. [facility] metroNIDAZO LE (FLAGYL) 500 MG tablet 2022-07 00:00: 00 07-04 23:59 :00 No 500mg Take 1 tablet (500 mg total) by mouth every 8 (eight) hours for 18 days. [facility] ciprofloxac in HCl (CIPRO) 500 MG tablet 2022-07 00:00: 00 07-04 23:59 :00 No 500mg Q.5D Take 1 tablet (500 mg total) by mouth 2 (two) times daily for 18 days. [facility] metroNIDAZO LE (FLAGYL) 500 MG tablet 2022-07 00:00: 00 07-04 23:59 :00 No 500mg Take 1 tablet (500 mg total) by mouth every 8 (eight) hours for 18 days. [facility] ciprofloxac in HCl (CIPRO) 500 MG tablet 2022-07 00:00: 00 07-04 23:59 :00 No 500mg Q.5D Take 1 tablet (500 mg total) by mouth 2 (two) times daily for 18 days. [facility] metroNIDAZO LE (FLAGYL) 500 MG tablet 2022-07 00:00: 00 07-04 23:59 :00 No 500mg Take 1 tablet (500 mg total) by mouth every 8 (eight) hours for 18 days. [facility] ciprofloxac in HCl (CIPRO) 500 MG tablet 2022-07 00:00: 00 07-04 23:59 :00 No 500mg Q.5D Take 1 tablet (500 mg total) by mouth 2 (two) times daily for 18 days. [facility] metroNIDAZO LE (FLAGYL) 500 MG tablet 2022-07 00:00: 00 07-04 23:59 :00 No 500mg Take 1 tablet (500 mg total) by mouth every 8 (eight) hours for 18 days. [facility] ciprofloxac in HCl (CIPRO) 500 MG tablet 2022-07 00:00: 00 07-04 23:59 :00 No 500mg Q.5D Take 1 tablet (500 mg total) by mouth 2 (two) times daily for 18 days. [facility] metroNIDAZO LE (FLAGYL) 500 MG tablet 2022-07 00:00: 00 07-04 23:59 :00 No 500mg Take 1 tablet (500 mg total) by mouth every 8 (eight) hours for 18 days. [facility] ciprofloxac in HCl (CIPRO) 500 MG tablet 2022-07 00:00: 00 07-04 23:59 :00 No 500mg Q.5D Take 1 tablet (500 mg total) by mouth 2 (two) times daily for 18 days. [facility] metroNIDAZO LE (FLAGYL) 500 MG tablet 2022-07 00:00: 00 07-04 23:59 :00 No 500mg Take 1 tablet (500 mg total) by mouth every 8 (eight) hours for 18 days. [facility] ciprofloxac in HCl (CIPRO) 500 MG tablet 2022-07 00:00: 00 07-04 23:59 :00 No 500mg Q.5D Take 1 tablet (500 mg total) by mouth 2 (two) times daily for 18 days. [facility] metroNIDAZO LE (FLAGYL) 500 MG tablet 2022-07 00:00: 00 07-04 23:59 :00 No 500mg Take 1 tablet (500 mg total) by mouth every 8 (eight) hours for 18 days. [facility] ciprofloxac in HCl (CIPRO) 500 MG tablet 2022-07 00:00: 00 07-04 23:59 :00 No 500mg Q.5D Take 1 tablet (500 mg total) by mouth 2 (two) times daily for 18 days. [facility] metroNIDAZO LE (FLAGYL) 500 MG tablet 2022-07 00:00: 00 07-04 23:59 :00 No 500mg Take 1 tablet (500 mg total) by mouth every 8 (eight) hours for 18 days. [facility] ciprofloxac in HCl (CIPRO) 500 MG tablet 2022-07 00:00: 00 07-04 23:59 :00 No 500mg Q.5D Take 1 tablet (500 mg total) by mouth 2 (two) times daily for 18 days. [facility] metroNIDAZO LE (FLAGYL) 500 MG tablet 2022-07 00:00: 00 07-04 23:59 :00 No 500mg Take 1 tablet (500 mg total) by mouth every 8 (eight) hours for 18 days. [facility] ciprofloxac in HCl (CIPRO) 500 MG tablet 2022-07 00:00: 00 07-04 23:59 :00 No 500mg Q.5D Take 1 tablet (500 mg total) by mouth 2 (two) times daily for 18 days. [facility] metroNIDAZO LE (FLAGYL) 500 MG tablet 2022-07 00:00: 00 07-04 23:59 :00 No 500mg Take 1 tablet (500 mg total) by mouth every 8 (eight) hours for 18 days. [facility] ciprofloxac in HCl (CIPRO) 500 MG tablet 2022-07 00:00: 00 07-04 23:59 :00 No 500mg Q.5D Take 1 tablet (500 mg total) by mouth 2 (two) times daily for 18 days. [facility] cyclobenzap rine (FLEXERIL) 10 MG tablet 2022-07 00:00: 00 06-26 23:59 :00 No 10mg Q.[id number] 3D Take 1 tablet (10 mg total) by mouth 3 (three) times daily for 10 days. [facility] oxyCODONE (OXY-IR) 10 mg tablet 2022-07 00:00: 00 06-26 23:59 :00 No 10mg Take 1 tablet (10 mg total) by mouth every 8 (eight) hours as needed for up to 10 days. Max Daily Amount: 30 mg [facility] cyclobenzap rine (FLEXERIL) 10 MG tablet 2022-07 00:00: 00 06-26 23:59 :00 No 10mg Q.[id number] 3D Take 1 tablet (10 mg total) by mouth 3 (three) times daily for 10 days. [facility] oxyCODONE (OXY-IR) 10 mg tablet 2022-07 00:00: 00 06-26 23:59 :00 No 10mg Take 1 tablet (10 mg total) by mouth every 8 (eight) hours as needed for up to 10 days. Max Daily Amount: 30 mg [facility] cyclobenzap rine (FLEXERIL) 10 MG tablet 2022-07 00:00: 00 06-26 23:59 :00 No 10mg Q.[id number] 3D Take 1 tablet (10 mg total) by mouth 3 (three) times daily for 10 days. [facility] oxyCODONE (OXY-IR) 10 mg tablet 2022-07 00:00: 00 06-26 23:59 :00 No 10mg Take 1 tablet (10 mg total) by mouth every 8 (eight) hours as needed for up to 10 days. Max Daily Amount: 30 mg [facility] cyclobenzap rine (FLEXERIL) 10 MG tablet 2022-07 00:00: 00 06-26 23:59 :00 No 10mg Q.[id number] 3D Take 1 tablet (10 mg total) by mouth 3 (three) times daily for 10 days. [facility] oxyCODONE (OXY-IR) 10 mg tablet 2022-07 00:00: 00 06-26 23:59 :00 No 10mg Take 1 tablet (10 mg total) by mouth every 8 (eight) hours as needed for up to 10 days. Max Daily Amount: 30 mg [facility] cyclobenzap rine (FLEXERIL) 10 MG tablet 2022-07 00:00: 00 06-26 23:59 :00 No 10mg Q.[id number] 3D Take 1 tablet (10 mg total) by mouth 3 (three) times daily for 10 days. [facility] oxyCODONE (OXY-IR) 10 mg tablet 2022-07 00:00: 00 06-26 23:59 :00 No 10mg Take 1 tablet (10 mg total) by mouth every 8 (eight) hours as needed for up to 10 days. Max Daily Amount: 30 mg [facility] cyclobenzap rine (FLEXERIL) 10 MG tablet 2022-07 00:00: 00 06-26 23:59 :00 No 10mg Q.[id number] 3D Take 1 tablet (10 mg total) by mouth 3 (three) times daily for 10 days. [facility] oxyCODONE (OXY-IR) 10 mg tablet 2022-07 00:00: 00 06-26 23:59 :00 No 10mg Take 1 tablet (10 mg total) by mouth every 8 (eight) hours as needed for up to 10 days. Max Daily Amount: 30 mg [facility] cyclobenzap rine (FLEXERIL) 10 MG tablet 2022-07 00:00: 00 06-26 23:59 :00 No 10mg Q.[id number] 3D Take 1 tablet (10 mg total) by mouth 3 (three) times daily for 10 days. [facility] oxyCODONE (OXY-IR) 10 mg tablet 2022-07 00:00: 00 06-26 23:59 :00 No 10mg Take 1 tablet (10 mg total) by mouth every 8 (eight) hours as needed for up to 10 days. Max Daily Amount: 30 mg [facility] cyclobenzap rine (FLEXERIL) 10 MG tablet 2022-07 00:00: 00 06-26 23:59 :00 No 10mg Q.[id number] 3D Take 1 tablet (10 mg total) by mouth 3 (three) times daily for 10 days. [facility] oxyCODONE (OXY-IR) 10 mg tablet 2022-07 00:00: 00 06-26 23:59 :00 No 10mg Take 1 tablet (10 mg total) by mouth every 8 (eight) hours as needed for up to 10 days. Max Daily Amount: 30 mg [facility] cyclobenzap rine (FLEXERIL) 10 MG tablet 2022-07 00:00: 00 06-26 23:59 :00 No 10mg Q.[id number] 3D Take 1 tablet (10 mg total) by mouth 3 (three) times daily for 10 days. [facility] oxyCODONE (OXY-IR) 10 mg tablet 2022-07 00:00: 00 06-26 23:59 :00 No 10mg Take 1 tablet (10 mg total) by mouth every 8 (eight) hours as needed for up to 10 days. Max Daily Amount: 30 mg [facility] cyclobenzap rine (FLEXERIL) 10 MG tablet 2022-07 00:00: 00 06-26 23:59 :00 No 10mg Q.[id number] 3D Take 1 tablet (10 mg total) by mouth 3 (three) times daily for 10 days. [facility] oxyCODONE (OXY-IR) 10 mg tablet 2022-07 00:00: 00 06-26 23:59 :00 No 10mg Take 1 tablet (10 mg total) by mouth every 8 (eight) hours as needed for up to 10 days. Max Daily Amount: 30 mg [facility] cyclobenzap rine (FLEXERIL) 10 MG tablet 2022-07 00:00: 00 06-26 23:59 :00 No 10mg Q.[id number] 3D Take 1 tablet (10 mg total) by mouth 3 (three) times daily for 10 days. [facility] oxyCODONE (OXY-IR) 10 mg tablet 2022-07 00:00: 00 06-26 23:59 :00 No 10mg Take 1 tablet (10 mg total) by mouth every 8 (eight) hours as needed for up to 10 days. Max Daily Amount: 30 mg [facility] cyclobenzap rine (FLEXERIL) 10 MG tablet 2022-07 00:00: 00 06-26 23:59 :00 No 10mg Q.[id number] 3D Take 1 tablet (10 mg total) by mouth 3 (three) times daily for 10 days. [facility] oxyCODONE (OXY-IR) 10 mg tablet 2022-07 00:00: 00 06-26 23:59 :00 No 10mg Take 1 tablet (10 mg total) by mouth every 8 (eight) hours as needed for up to 10 days. Max Daily Amount: 30 mg [facility] cyclobenzap rine (FLEXERIL) 10 MG tablet 2022-07 00:00: 00 06-26 23:59 :00 No 10mg Q.[id number] 3D Take 1 tablet (10 mg total) by mouth 3 (three) times daily for 10 days. [facility] oxyCODONE (OXY-IR) 10 mg tablet 2022-07 00:00: 00 06-26 23:59 :00 No 10mg Take 1 tablet (10 mg total) by mouth every 8 (eight) hours as needed for up to 10 days. Max Daily Amount: 30 mg [facility] cyclobenzap rine (FLEXERIL) 10 MG tablet 2022-07 00:00: 00 06-26 23:59 :00 No 10mg Q.[id number] 3D Take 1 tablet (10 mg total) by mouth 3 (three) times daily for 10 days. [facility] oxyCODONE (OXY-IR) 10 mg tablet 2022-07 00:00: 00 06-26 23:59 :00 No 10mg Take 1 tablet (10 mg total) by mouth every 8 (eight) hours as needed for up to 10 days. Max Daily Amount: 30 mg [facility] cyclobenzap rine (FLEXERIL) 10 MG tablet 2022-07 00:00: 00 06-26 23:59 :00 No 10mg Q.[id number] 3D Take 1 tablet (10 mg total) by mouth 3 (three) times daily for 10 days. [facility] oxyCODONE (OXY-IR) 10 mg tablet 2022-07 00:00: 00 06-26 23:59 :00 No 10mg Take 1 tablet (10 mg total) by mouth every 8 (eight) hours as needed for up to 10 days. Max Daily Amount: 30 mg [facility] cyclobenzap rine (FLEXERIL) 10 MG tablet 2022-07 00:00: 00 06-26 23:59 :00 No 10mg Q.[id number] 3D Take 1 tablet (10 mg total) by mouth 3 (three) times daily for 10 days. [facility] oxyCODONE (OXY-IR) 10 mg tablet 2022-07 00:00: 00 06-26 23:59 :00 No 10mg Take 1 tablet (10 mg total) by mouth every 8 (eight) hours as needed for up to 10 days. Max Daily Amount: 30 mg [facility] cyclobenzap rine (FLEXERIL) 10 MG tablet 2022-07 00:00: 00 06-26 23:59 :00 No 10mg Q.[id number] 3D Take 1 tablet (10 mg total) by mouth 3 (three) times daily for 10 days. [facility] oxyCODONE (OXY-IR) 10 mg tablet 2022-07 00:00: 00 06-26 23:59 :00 No 10mg Take 1 tablet (10 mg total) by mouth every 8 (eight) hours as needed for up to 10 days. Max Daily Amount: 30 mg [facility] cyclobenzap rine (FLEXERIL) 10 MG tablet 2022-07 00:00: 00 06-26 23:59 :00 No 10mg Q.[id number] 3D Take 1 tablet (10 mg total) by mouth 3 (three) times daily for 10 days. [facility] oxyCODONE (OXY-IR) 10 mg tablet 2022-07 00:00: 00 06-26 23:59 :00 No 10mg Take 1 tablet (10 mg total) by mouth every 8 (eight) hours as needed for up to 10 days. Max Daily Amount: 30 mg [facility] cyclobenzap rine (FLEXERIL) 10 MG tablet 2022-07 00:00: 00 06-26 23:59 :00 No 10mg Q.[id number] 3D Take 1 tablet (10 mg total) by mouth 3 (three) times daily for 10 days. [facility] oxyCODONE (OXY-IR) 10 mg tablet 2022-07 00:00: 00 06-26 23:59 :00 No 10mg Take 1 tablet (10 mg total) by mouth every 8 (eight) hours as needed for up to 10 days. Max Daily Amount: 30 mg [facility] cyclobenzap rine (FLEXERIL) 10 MG tablet 2022-07 00:00: 00 06-26 23:59 :00 No 10mg Q.[id number] 3D Take 1 tablet (10 mg total) by mouth 3 (three) times daily for 10 days. [facility] oxyCODONE (OXY-IR) 10 mg tablet 2022-07 00:00: 00 06-26 23:59 :00 No 10mg Take 1 tablet (10 mg total) by mouth every 8 (eight) hours as needed for up to 10 days. Max Daily Amount: 30 mg [facility] cyclobenzap rine (FLEXERIL) 10 MG tablet 2022-07 00:00: 00 06-26 23:59 :00 No 10mg Q.[id number] 3D Take 1 tablet (10 mg total) by mouth 3 (three) times daily for 10 days. [facility] oxyCODONE (OXY-IR) 10 mg tablet 2022-07 00:00: 00 06-26 23:59 :00 No 10mg Take 1 tablet (10 mg total) by mouth every 8 (eight) hours as needed for up to 10 days. Max Daily Amount: 30 mg [facility] cyclobenzap rine (FLEXERIL) 10 MG tablet 2022-07 00:00: 00 06-26 23:59 :00 No 10mg Q.[id number] 3D Take 1 tablet (10 mg total) by mouth 3 (three) times daily for 10 days. [facility] oxyCODONE (OXY-IR) 10 mg tablet 2022-07 00:00: 00 06-26 23:59 :00 No 10mg Take 1 tablet (10 mg total) by mouth every 8 (eight) hours as needed for up to 10 days. Max Daily Amount: 30 mg [facility] cyclobenzap rine (FLEXERIL) 10 MG tablet 2022-07 00:00: 00 06-26 23:59 :00 No 10mg Q.[id number] 3D Take 1 tablet (10 mg total) by mouth 3 (three) times daily for 10 days. [facility] oxyCODONE (OXY-IR) 10 mg tablet 2022-07 00:00: 00 06-26 23:59 :00 No 10mg Take 1 tablet (10 mg total) by mouth every 8 (eight) hours as needed for up to 10 days. Max Daily Amount: 30 mg [facility] cyclobenzap rine (FLEXERIL) 10 MG tablet 2022-07 00:00: 00 06-26 23:59 :00 No 10mg Q.[id number] 3D Take 1 tablet (10 mg total) by mouth 3 (three) times daily for 10 days. [facility] oxyCODONE (OXY-IR) 10 mg tablet 2022-07 00:00: 00 06-26 23:59 :00 No 10mg Take 1 tablet (10 mg total) by mouth every 8 (eight) hours as needed for up to 10 days. Max Daily Amount: 30 mg [facility] cyclobenzap rine (FLEXERIL) 10 MG tablet 2022-07 00:00: 00 06-26 23:59 :00 No 10mg Q.[id number] 3D Take 1 tablet (10 mg total) by mouth 3 (three) times daily for 10 days. [facility] oxyCODONE (OXY-IR) 10 mg tablet 2022-07 00:00: 00 06-26 23:59 :00 No 10mg Take 1 tablet (10 mg total) by mouth every 8 (eight) hours as needed for up to 10 days. Max Daily Amount: 30 mg [facility] cyclobenzap rine (FLEXERIL) 10 MG tablet 2022-07 00:00: 00 06-26 23:59 :00 No 10mg Q.[id number] 3D Take 1 tablet (10 mg total) by mouth 3 (three) times daily for 10 days. [facility] oxyCODONE (OXY-IR) 10 mg tablet 2022-07 00:00: 00 06-26 23:59 :00 No 10mg Take 1 tablet (10 mg total) by mouth every 8 (eight) hours as needed for up to 10 days. Max Daily Amount: 30 mg [facility] cyclobenzap rine (FLEXERIL) 10 MG tablet 2022-07 00:00: 00 06-26 23:59 :00 No 10mg Q.[id number] 3D Take 1 tablet (10 mg total) by mouth 3 (three) times daily for 10 days. [facility] oxyCODONE (OXY-IR) 10 mg tablet 2022-07 00:00: 00 06-26 23:59 :00 No 10mg Take 1 tablet (10 mg total) by mouth every 8 (eight) hours as needed for up to 10 days. Max Daily Amount: 30 mg [facility] cyclobenzap rine (FLEXERIL) 10 MG tablet 2022-07 00:00: 00 06-26 23:59 :00 No 10mg Q.[id number] 3D Take 1 tablet (10 mg total) by mouth 3 (three) times daily for 10 days. [facility] oxyCODONE (OXY-IR) 10 mg tablet 2022-07 00:00: 00 06-26 23:59 :00 No 10mg Take 1 tablet (10 mg total) by mouth every 8 (eight) hours as needed for up to 10 days. Max Daily Amount: 30 mg [facility] cyclobenzap rine (FLEXERIL) 10 MG tablet 2022-07 00:00: 00 06-26 23:59 :00 No 10mg Q.[id number] 3D Take 1 tablet (10 mg total) by mouth 3 (three) times daily for 10 days. [facility] oxyCODONE (OXY-IR) 10 mg tablet 2022-07 00:00: 00 06-26 23:59 :00 No 10mg Take 1 tablet (10 mg total) by mouth every 8 (eight) hours as needed for up to 10 days. Max Daily Amount: 30 mg [facility] cyclobenzap rine (FLEXERIL) 10 MG tablet 2022-07 00:00: 00 06-26 23:59 :00 No 10mg Q.[id number] 3D Take 1 tablet (10 mg total) by mouth 3 (three) times daily for 10 days. [facility] oxyCODONE (OXY-IR) 10 mg tablet 2022-07 00:00: 00 06-26 23:59 :00 No 10mg Take 1 tablet (10 mg total) by mouth every 8 (eight) hours as needed for up to 10 days. Max Daily Amount: 30 mg [facility] cyclobenzap rine (FLEXERIL) 10 MG tablet 2022-07 00:00: 00 06-26 23:59 :00 No 10mg Q.[id number] 3D Take 1 tablet (10 mg total) by mouth 3 (three) times daily for 10 days. [facility] oxyCODONE (OXY-IR) 10 mg tablet 2022-07 00:00: 00 06-26 23:59 :00 No 10mg Take 1 tablet (10 mg total) by mouth every 8 (eight) hours as needed for up to 10 days. Max Daily Amount: 30 mg [facility] nystatin (MYCOSTATIN ) 100,000 unit/mL suspension 2022-07 00:00: 00 06-21 23:59 :00 No [id number] Q.25D Take 5 mLs (500,000 Units total) by mouth 4 (four) times daily for 5 days. [facility] nystatin (MYCOSTATIN ) 100,000 unit/mL suspension 2022-07 00:00: 00 06-21 23:59 :00 No [id number] Q.25D Take 5 mLs (500,000 Units total) by mouth 4 (four) times daily for 5 days. [facility] nystatin (MYCOSTATIN ) 100,000 unit/mL suspension 2022-07 00:00: 00 06-21 23:59 :00 No [id number] Q.25D Take 5 mLs (500,000 Units total) by mouth 4 (four) times daily for 5 days. [facility] nystatin (MYCOSTATIN ) 100,000 unit/mL suspension 2022-07 00:00: 00 06-21 23:59 :00 No [id number] Q.25D Take 5 mLs (500,000 Units total) by mouth 4 (four) times daily for 5 days. [facility] nystatin (MYCOSTATIN ) 100,000 unit/mL suspension 2022-07 00:00: 00 06-21 23:59 :00 No [id number] Q.25D Take 5 mLs (500,000 Units total) by mouth 4 (four) times daily for 5 days. [facility] nystatin (MYCOSTATIN ) 100,000 unit/mL suspension 2022-07 00:00: 00 06-21 23:59 :00 No [id number] Q.25D Take 5 mLs (500,000 Units total) by mouth 4 (four) times daily for 5 days. [facility] nystatin (MYCOSTATIN ) 100,000 unit/mL suspension 2022-07 00:00: 00 06-21 23:59 :00 No [id number] Q.25D Take 5 mLs (500,000 Units total) by mouth 4 (four) times daily for 5 days. [facility] nystatin (MYCOSTATIN ) 100,000 unit/mL suspension 2022-07 00:00: 00 06-21 23:59 :00 No [id number] Q.25D Take 5 mLs (500,000 Units total) by mouth 4 (four) times daily for 5 days. [facility] nystatin (MYCOSTATIN ) 100,000 unit/mL suspension 2022-07 00:00: 00 06-21 23:59 :00 No [id number] Q.25D Take 5 mLs (500,000 Units total) by mouth 4 (four) times daily for 5 days. [facility] nystatin (MYCOSTATIN ) 100,000 unit/mL suspension 2022-07 00:00: 00 06-21 23:59 :00 No [id number] Q.25D Take 5 mLs (500,000 Units total) by mouth 4 (four) times daily for 5 days. [facility] nystatin (MYCOSTATIN ) 100,000 unit/mL suspension 2022-07 00:00: 00 06-21 23:59 :00 No [id number] Q.25D Take 5 mLs (500,000 Units total) by mouth 4 (four) times daily for 5 days. [facility] nystatin (MYCOSTATIN ) 100,000 unit/mL suspension 2022-07 00:00: 00 06-21 23:59 :00 No [id number] Q.25D Take 5 mLs (500,000 Units total) by mouth 4 (four) times daily for 5 days. [facility] nystatin (MYCOSTATIN ) 100,000 unit/mL suspension 2022-07 00:00: 00 06-21 23:59 :00 No [id number] Q.25D Take 5 mLs (500,000 Units total) by mouth 4 (four) times daily for 5 days. [facility] nystatin (MYCOSTATIN ) 100,000 unit/mL suspension 2022-07 00:00: 00 06-21 23:59 :00 No [id number] Q.25D Take 5 mLs (500,000 Units total) by mouth 4 (four) times daily for 5 days. [facility] nystatin (MYCOSTATIN ) 100,000 unit/mL suspension 2022-07 00:00: 00 06-21 23:59 :00 No [id number] Q.25D Take 5 mLs (500,000 Units total) by mouth 4 (four) times daily for 5 days. [facility] nystatin (MYCOSTATIN ) 100,000 unit/mL suspension 2022-07 00:00: 00 06-21 23:59 :00 No [id number] Q.25D Take 5 mLs (500,000 Units total) by mouth 4 (four) times daily for 5 days. [facility] nystatin (MYCOSTATIN ) 100,000 unit/mL suspension 2022-07 00:00: 00 06-21 23:59 :00 No [id number] Q.25D Take 5 mLs (500,000 Units total) by mouth 4 (four) times daily for 5 days. [facility] nystatin (MYCOSTATIN ) 100,000 unit/mL suspension 2022-07 00:00: 00 06-21 23:59 :00 No [id number] Q.25D Take 5 mLs (500,000 Units total) by mouth 4 (four) times daily for 5 days. [facility] nystatin (MYCOSTATIN ) 100,000 unit/mL suspension 2022-07 00:00: 00 06-21 23:59 :00 No [id number] Q.25D Take 5 mLs (500,000 Units total) by mouth 4 (four) times daily for 5 days. [facility] nystatin (MYCOSTATIN ) 100,000 unit/mL suspension 2022-07 00:00: 00 06-21 23:59 :00 No [id number] Q.25D Take 5 mLs (500,000 Units total) by mouth 4 (four) times daily for 5 days. [facility] nystatin (MYCOSTATIN ) 100,000 unit/mL suspension 2022-07 00:00: 00 06-21 23:59 :00 No [id number] Q.25D Take 5 mLs (500,000 Units total) by mouth 4 (four) times daily for 5 days. [facility] nystatin (MYCOSTATIN ) 100,000 unit/mL suspension 2022-07 00:00: 00 06-21 23:59 :00 No [id number] Q.25D Take 5 mLs (500,000 Units total) by mouth 4 (four) times daily for 5 days. [facility] nystatin (MYCOSTATIN ) 100,000 unit/mL suspension 2022-07 00:00: 00 06-21 23:59 :00 No [id number] Q.25D Take 5 mLs (500,000 Units total) by mouth 4 (four) times daily for 5 days. [facility] nystatin (MYCOSTATIN ) 100,000 unit/mL suspension 2022-07 00:00: 00 06-21 23:59 :00 No [id number] Q.25D Take 5 mLs (500,000 Units total) by mouth 4 (four) times daily for 5 days. [facility] nystatin (MYCOSTATIN ) 100,000 unit/mL suspension 2022-07 00:00: 00 06-21 23:59 :00 No [id number] Q.25D Take 5 mLs (500,000 Units total) by mouth 4 (four) times daily for 5 days. [facility] nystatin (MYCOSTATIN ) 100,000 unit/mL suspension 2022-07 00:00: 00 06-21 23:59 :00 No [id number] Q.25D Take 5 mLs (500,000 Units total) by mouth 4 (four) times daily for 5 days. [facility] nystatin (MYCOSTATIN ) 100,000 unit/mL suspension 2022-07 00:00: 00 06-21 23:59 :00 No [id number] Q.25D Take 5 mLs (500,000 Units total) by mouth 4 (four) times daily for 5 days. [facility] nystatin (MYCOSTATIN ) 100,000 unit/mL suspension 2022-07 00:00: 00 06-21 23:59 :00 No [id number] Q.25D Take 5 mLs (500,000 Units total) by mouth 4 (four) times daily for 5 days. [facility] nystatin (MYCOSTATIN ) 100,000 unit/mL suspension 2022-07 00:00: 00 06-21 23:59 :00 No [id number] Q.25D Take 5 mLs (500,000 Units total) by mouth 4 (four) times daily for 5 days. [facility] nystatin (MYCOSTATIN ) 100,000 unit/mL suspension 2022-07 00:00: 00 06-21 23:59 :00 No [id number] Q.25D Take 5 mLs (500,000 Units total) by mouth 4 (four) times daily for 5 days. [facility] nystatin (MYCOSTATIN ) 100,000 unit/mL suspension 2022-07 00:00: 00 06-21 23:59 :00 No [id number] Q.25D Take 5 mLs (500,000 Units total) by mouth 4 (four) times daily for 5 days. [facility] dexAMETHaso ne (DECADRON) 2 MG tablet 2022-07 00:00: 00 06-08 23:59 :00 No 1mg Take 0.5 tablets (1 mg total) by mouth 2 (two) times daily with breakfast and dinner for 2 days. [facility] dexAMETHaso ne (DECADRON) 2 MG tablet 2022-07 00:00: 00 06-08 23:59 :00 No 1mg Take 0.5 tablets (1 mg total) by mouth 2 (two) times daily with breakfast and dinner for 2 days. [facility] dexAMETHaso ne (DECADRON) 2 MG tablet 2022-07 00:00: 00 06-08 23:59 :00 No 1mg Take 0.5 tablets (1 mg total) by mouth 2 (two) times daily with breakfast and dinner for 2 days. [facility] dexAMETHaso ne (DECADRON) 2 MG tablet 2022-07 00:00: 00 06-08 23:59 :00 No 1mg Take 0.5 tablets (1 mg total) by mouth 2 (two) times daily with breakfast and dinner for 2 days. [facility] dexAMETHaso ne (DECADRON) 2 MG tablet 2022-07 00:00: 00 06-08 23:59 :00 No 1mg Take 0.5 tablets (1 mg total) by mouth 2 (two) times daily with breakfast and dinner for 2 days. [facility] dexAMETHaso ne (DECADRON) 2 MG tablet 2022-07 00:00: 00 06-08 23:59 :00 No 1mg Take 0.5 tablets (1 mg total) by mouth 2 (two) times daily with breakfast and dinner for 2 days. [facility] dexAMETHaso ne (DECADRON) 2 MG tablet 2022-07 00:00: 00 06-08 23:59 :00 No 1mg Take 0.5 tablets (1 mg total) by mouth 2 (two) times daily with breakfast and dinner for 2 days. [facility] dexAMETHaso ne (DECADRON) 2 MG tablet 2022-07 00:00: 00 06-08 23:59 :00 No 1mg Take 0.5 tablets (1 mg total) by mouth 2 (two) times daily with breakfast and dinner for 2 days. [facility] dexAMETHaso ne (DECADRON) 2 MG tablet 2022-07 00:00: 00 06-08 23:59 :00 No 1mg Take 0.5 tablets (1 mg total) by mouth 2 (two) times daily with breakfast and dinner for 2 days. [facility] dexAMETHaso ne (DECADRON) 2 MG tablet 2022-07 00:00: 00 06-08 23:59 :00 No 1mg Take 0.5 tablets (1 mg total) by mouth 2 (two) times daily with breakfast and dinner for 2 days. [facility] dexAMETHaso ne (DECADRON) 2 MG tablet 2022-07 00:00: 00 06-08 23:59 :00 No 1mg Take 0.5 tablets (1 mg total) by mouth 2 (two) times daily with breakfast and dinner for 2 days. [facility] dexAMETHaso ne (DECADRON) 2 MG tablet 2022-07 00:00: 00 06-08 23:59 :00 No 1mg Take 0.5 tablets (1 mg total) by mouth 2 (two) times daily with breakfast and dinner for 2 days. [facility] dexAMETHaso ne (DECADRON) 2 MG tablet 2022-07 00:00: 00 06-08 23:59 :00 No 1mg Take 0.5 tablets (1 mg total) by mouth 2 (two) times daily with breakfast and dinner for 2 days. [facility] dexAMETHaso ne (DECADRON) 2 MG tablet 2022-07 00:00: 00 06-08 23:59 :00 No 1mg Take 0.5 tablets (1 mg total) by mouth 2 (two) times daily with breakfast and dinner for 2 days. [facility] dexAMETHaso ne (DECADRON) 2 MG tablet 2022-07 00:00: 00 06-08 23:59 :00 No 1mg Take 0.5 tablets (1 mg total) by mouth 2 (two) times daily with breakfast and dinner for 2 days. [facility] dexAMETHaso ne (DECADRON) 2 MG tablet 2022-07 00:00: 00 06-08 23:59 :00 No 1mg Take 0.5 tablets (1 mg total) by mouth 2 (two) times daily with breakfast and dinner for 2 days. [facility] dexAMETHaso ne (DECADRON) 2 MG tablet 2022-07 00:00: 00 06-08 23:59 :00 No 1mg Take 0.5 tablets (1 mg total) by mouth 2 (two) times daily with breakfast and dinner for 2 days. [facility] dexAMETHaso ne (DECADRON) 2 MG tablet 2022-07 00:00: 00 06-08 23:59 :00 No 1mg Take 0.5 tablets (1 mg total) by mouth 2 (two) times daily with breakfast and dinner for 2 days. [facility] dexAMETHaso ne (DECADRON) 2 MG tablet 2022-07 00:00: 00 06-08 23:59 :00 No 1mg Take 0.5 tablets (1 mg total) by mouth 2 (two) times daily with breakfast and dinner for 2 days. [facility] dexAMETHaso ne (DECADRON) 2 MG tablet 2022-07 00:00: 00 06-08 23:59 :00 No 1mg Take 0.5 tablets (1 mg total) by mouth 2 (two) times daily with breakfast and dinner for 2 days. [facility] dexAMETHaso ne (DECADRON) 2 MG tablet 2022-07 00:00: 00 06-08 23:59 :00 No 1mg Take 0.5 tablets (1 mg total) by mouth 2 (two) times daily with breakfast and dinner for 2 days. [facility] dexAMETHaso ne (DECADRON) 2 MG tablet 2022-07 00:00: 00 06-08 23:59 :00 No 1mg Take 0.5 tablets (1 mg total) by mouth 2 (two) times daily with breakfast and dinner for 2 days. [facility] dexAMETHaso ne (DECADRON) 2 MG tablet 2022-07 00:00: 00 06-08 23:59 :00 No 1mg Take 0.5 tablets (1 mg total) by mouth 2 (two) times daily with breakfast and dinner for 2 days. [facility] dexAMETHaso ne (DECADRON) 2 MG tablet 2022-07 00:00: 00 06-08 23:59 :00 No 1mg Take 0.5 tablets (1 mg total) by mouth 2 (two) times daily with breakfast and dinner for 2 days. [facility] dexAMETHaso ne (DECADRON) 2 MG tablet 2022-07 00:00: 00 06-08 23:59 :00 No 1mg Take 0.5 tablets (1 mg total) by mouth 2 (two) times daily with breakfast and dinner for 2 days. [facility] dexAMETHaso ne (DECADRON) 2 MG tablet 2022-07 00:00: 00 06-08 23:59 :00 No 1mg Take 0.5 tablets (1 mg total) by mouth 2 (two) times daily with breakfast and dinner for 2 days. [facility] dexAMETHaso ne (DECADRON) 2 MG tablet 2022-07 00:00: 00 06-08 23:59 :00 No 1mg Take 0.5 tablets (1 mg total) by mouth 2 (two) times daily with breakfast and dinner for 2 days. [facility] dexAMETHaso ne (DECADRON) 2 MG tablet 2022-07 00:00: 00 06-08 23:59 :00 No 1mg Take 0.5 tablets (1 mg total) by mouth 2 (two) times daily with breakfast and dinner for 2 days. [facility] dexAMETHaso ne (DECADRON) 2 MG tablet 2022-07 00:00: 00 06-08 23:59 :00 No 1mg Take 0.5 tablets (1 mg total) by mouth 2 (two) times daily with breakfast and dinner for 2 days. [facility] dexAMETHaso ne (DECADRON) 2 MG tablet 2022-07 00:00: 00 06-08 23:59 :00 No 1mg Take 0.5 tablets (1 mg total) by mouth 2 (two) times daily with breakfast and dinner for 2 days. [facility] dexAMETHaso ne (DECADRON) 2 MG tablet 2022-07 00:00: 00 06-08 23:59 :00 No 1mg Take 0.5 tablets (1 mg total) by mouth 2 (two) times daily with breakfast and dinner for 2 days. [facility] dexAMETHaso ne (DECADRON) 2 MG tablet 2022-07 00:00: 00 06-08 23:59 :00 No 1mg Take 0.5 tablets (1 mg total) by mouth 2 (two) times daily with breakfast and dinner for 2 days. [facility] dexAMETHaso ne (DECADRON) 2 MG tablet 2022-07 00:00: 00 06-08 23:59 :00 No 1mg Take 0.5 tablets (1 mg total) by mouth 2 (two) times daily with breakfast and dinner for 2 days. [facility] dexAMETHaso ne (DECADRON) 2 MG tablet 2022-07 00:00: 00 06-08 23:59 :00 No 1mg Take 0.5 tablets (1 mg total) by mouth 2 (two) times daily with breakfast and dinner for 2 days. [facility] dexAMETHaso ne (DECADRON) 2 MG tablet 2022-07 00:00: 00 06-06 23:59 :00 No 2mg Take 1 tablet (2 mg total) by mouth 2 (two) times daily with breakfast and dinner for 1 day. [facility] dexAMETHaso ne (DECADRON) 2 MG tablet 2022-07 00:00: 00 06-06 23:59 :00 No 2mg Take 1 tablet (2 mg total) by mouth 2 (two) times daily with breakfast and dinner for 1 day. [facility] dexAMETHaso ne (DECADRON) 2 MG tablet 2022-07 00:00: 00 06-06 23:59 :00 No 2mg Take 1 tablet (2 mg total) by mouth 2 (two) times daily with breakfast and dinner for 1 day. [facility] dexAMETHaso ne (DECADRON) 2 MG tablet 2022-07 00:00: 00 06-06 23:59 :00 No 2mg Take 1 tablet (2 mg total) by mouth 2 (two) times daily with breakfast and dinner for 1 day. [facility] dexAMETHaso ne (DECADRON) 2 MG tablet 2022-07 00:00: 00 06-06 23:59 :00 No 2mg Take 1 tablet (2 mg total) by mouth 2 (two) times daily with breakfast and dinner for 1 day. [facility] dexAMETHaso ne (DECADRON) 2 MG tablet 2022-07 00:00: 00 06-06 23:59 :00 No 2mg Take 1 tablet (2 mg total) by mouth 2 (two) times daily with breakfast and dinner for 1 day. [facility] dexAMETHaso ne (DECADRON) 2 MG tablet 2022-07 00:00: 00 06-06 23:59 :00 No 2mg Take 1 tablet (2 mg total) by mouth 2 (two) times daily with breakfast and dinner for 1 day. [facility] dexAMETHaso ne (DECADRON) 2 MG tablet 2022-07 00:00: 00 06-06 23:59 :00 No 2mg Take 1 tablet (2 mg total) by mouth 2 (two) times daily with breakfast and dinner for 1 day. [facility] dexAMETHaso ne (DECADRON) 2 MG tablet 2022-07 00:00: 00 06-06 23:59 :00 No 2mg Take 1 tablet (2 mg total) by mouth 2 (two) times daily with breakfast and dinner for 1 day. [facility] dexAMETHaso ne (DECADRON) 2 MG tablet 2022-07 00:00: 00 06-06 23:59 :00 No 2mg Take 1 tablet (2 mg total) by mouth 2 (two) times daily with breakfast and dinner for 1 day. [facility] dexAMETHaso ne (DECADRON) 2 MG tablet 2022-07 00:00: 00 06-06 23:59 :00 No 2mg Take 1 tablet (2 mg total) by mouth 2 (two) times daily with breakfast and dinner for 1 day. [facility] dexAMETHaso ne (DECADRON) 2 MG tablet 2022-07 00:00: 00 06-06 23:59 :00 No 2mg Take 1 tablet (2 mg total) by mouth 2 (two) times daily with breakfast and dinner for 1 day. [facility] dexAMETHaso ne (DECADRON) 2 MG tablet 2022-07 00:00: 00 06-06 23:59 :00 No 2mg Take 1 tablet (2 mg total) by mouth 2 (two) times daily with breakfast and dinner for 1 day. [facility] dexAMETHaso ne (DECADRON) 2 MG tablet 2022-07 00:00: 00 06-06 23:59 :00 No 2mg Take 1 tablet (2 mg total) by mouth 2 (two) times daily with breakfast and dinner for 1 day. [facility] dexAMETHaso ne (DECADRON) 2 MG tablet 2022-07 00:00: 00 06-06 23:59 :00 No 2mg Take 1 tablet (2 mg total) by mouth 2 (two) times daily with breakfast and dinner for 1 day. [facility] dexAMETHaso ne (DECADRON) 2 MG tablet 2022-07 00:00: 00 06-06 23:59 :00 No 2mg Take 1 tablet (2 mg total) by mouth 2 (two) times daily with breakfast and dinner for 1 day. [facility] dexAMETHaso ne (DECADRON) 2 MG tablet 2022-07 00:00: 00 06-06 23:59 :00 No 2mg Take 1 tablet (2 mg total) by mouth 2 (two) times daily with breakfast and dinner for 1 day. [facility] dexAMETHaso ne (DECADRON) 2 MG tablet 2022-07 00:00: 00 06-06 23:59 :00 No 2mg Take 1 tablet (2 mg total) by mouth 2 (two) times daily with breakfast and dinner for 1 day. [facility] dexAMETHaso ne (DECADRON) 2 MG tablet 2022-07 00:00: 00 06-06 23:59 :00 No 2mg Take 1 tablet (2 mg total) by mouth 2 (two) times daily with breakfast and dinner for 1 day. [facility] dexAMETHaso ne (DECADRON) 2 MG tablet 2022-07 00:00: 00 06-06 23:59 :00 No 2mg Take 1 tablet (2 mg total) by mouth 2 (two) times daily with breakfast and dinner for 1 day. [facility] dexAMETHaso ne (DECADRON) 2 MG tablet 2022-07 00:00: 00 06-06 23:59 :00 No 2mg Take 1 tablet (2 mg total) by mouth 2 (two) times daily with breakfast and dinner for 1 day. [facility] dexAMETHaso ne (DECADRON) 2 MG tablet 2022-07 00:00: 00 06-06 23:59 :00 No 2mg Take 1 tablet (2 mg total) by mouth 2 (two) times daily with breakfast and dinner for 1 day. [facility] dexAMETHaso ne (DECADRON) 2 MG tablet 2022-07 00:00: 00 06-06 23:59 :00 No 2mg Take 1 tablet (2 mg total) by mouth 2 (two) times daily with breakfast and dinner for 1 day. [facility] dexAMETHaso ne (DECADRON) 2 MG tablet 2022-07 00:00: 00 06-06 23:59 :00 No 2mg Take 1 tablet (2 mg total) by mouth 2 (two) times daily with breakfast and dinner for 1 day. [facility] dexAMETHaso ne (DECADRON) 2 MG tablet 2022-07 00:00: 00 06-06 23:59 :00 No 2mg Take 1 tablet (2 mg total) by mouth 2 (two) times daily with breakfast and dinner for 1 day. [facility] dexAMETHaso ne (DECADRON) 2 MG tablet 2022-07 00:00: 00 06-06 23:59 :00 No 2mg Take 1 tablet (2 mg total) by mouth 2 (two) times daily with breakfast and dinner for 1 day. [facility] dexAMETHaso ne (DECADRON) 2 MG tablet 2022-07 00:00: 00 06-06 23:59 :00 No 2mg Take 1 tablet (2 mg total) by mouth 2 (two) times daily with breakfast and dinner for 1 day. [facility] dexAMETHaso ne (DECADRON) 2 MG tablet 2022-07 00:00: 00 06-06 23:59 :00 No 2mg Take 1 tablet (2 mg total) by mouth 2 (two) times daily with breakfast and dinner for 1 day. [facility] dexAMETHaso ne (DECADRON) 2 MG tablet 2022-07 00:00: 00 06-06 23:59 :00 No 2mg Take 1 tablet (2 mg total) by mouth 2 (two) times daily with breakfast and dinner for 1 day. [facility] dexAMETHaso ne (DECADRON) 2 MG tablet 2022-07 00:00: 00 06-06 23:59 :00 No 2mg Take 1 tablet (2 mg total) by mouth 2 (two) times daily with breakfast and dinner for 1 day. [facility] dexAMETHaso ne (DECADRON) 2 MG tablet 2022-07 00:00: 00 06-06 23:59 :00 No 2mg Take 1 tablet (2 mg total) by mouth 2 (two) times daily with breakfast and dinner for 1 day. [facility] dexAMETHaso ne (DECADRON) 2 MG tablet 2022-07 00:00: 00 06-06 23:59 :00 No 2mg Take 1 tablet (2 mg total) by mouth 2 (two) times daily with breakfast and dinner for 1 day. [facility] dexAMETHaso ne (DECADRON) 2 MG tablet 2022-07 00:00: 00 06-06 23:59 :00 No 2mg Take 1 tablet (2 mg total) by mouth 2 (two) times daily with breakfast and dinner for 1 day. [facility] dexAMETHaso ne (DECADRON) 2 MG tablet 2022-07 00:00: 00 06-06 23:59 :00 No 2mg Take 1 tablet (2 mg total) by mouth 2 (two) times daily with breakfast and dinner for 1 day. [facility] metoprolol succinate (TOPROL-XL) 25 MG 24 hr tablet 2022-07 17:44: 21 Yes 25mg QD Take 1 tablet (25 mg total) by mouth daily. [facility] varenicline (CHANTIX) 1 mg tablet 2022-07 17:44: 21 Yes 1mg Q.5D Take 1 tablet (1 mg total) by mouth 2 (two) times daily Give with meals and with a full glass of water.. [facility] albuterol HFA (VENTOLIN HFA) 90 mcg/actuati on inhaler 2022-07 17:44: 21 Yes 1{puff} Inhale 1 puff by mouth via inhaler every 6 (six) hours as needed for Wheezing. [facility] fluticasone -umeclidin- vilanter (Trelegy Ellipta) 200-62.5-25 mcg DsDv 2022-07 17:44: 21 Yes QD Inhale by mouth via inhaler daily. [facility] atorvastati n (LIPITOR) 20 MG tablet 2022-07 17:44: 21 Yes 20mg QD Take 1 tablet (20 mg total) by mouth daily. [facility] acetaminoph en-codeine (TYLENOL #3) 300-30 mg per tablet 2022-07 17:44: 21 Yes 1{tbl} Take 1 tablet by mouth every 4 (four) hours as needed for Pain. [facility] metoprolol succinate (TOPROL-XL) 25 MG 24 hr tablet 2022-07 17:44: 21 Yes 25mg QD Take 1 tablet (25 mg total) by mouth daily. [facility] varenicline (CHANTIX) 1 mg tablet 2022-07 17:44: 21 Yes 1mg Q.5D Take 1 tablet (1 mg total) by mouth 2 (two) times daily Give with meals and with a full glass of water.. [facility] albuterol HFA (VENTOLIN HFA) 90 mcg/actuati on inhaler 2022-07 17:44: 21 Yes 1{puff} Inhale 1 puff by mouth via inhaler every 6 (six) hours as needed for Wheezing. [facility] fluticasone -umeclidin- vilanter (Trelegy Ellipta) 200-62.5-25 mcg DsDv 2022-07 17:44: 21 Yes QD Inhale by mouth via inhaler daily. [facility] atorvastati n (LIPITOR) 20 MG tablet 2022-07 17:44: 21 Yes 20mg QD Take 1 tablet (20 mg total) by mouth daily. [facility] acetaminoph en-codeine (TYLENOL #3) 300-30 mg per tablet 2022-07 17:44: 21 Yes 1{tbl} Take 1 tablet by mouth every 4 (four) hours as needed for Pain. [facility] metoprolol succinate (TOPROL-XL) 25 MG 24 hr tablet 2022-07 17:44: 21 Yes 25mg QD Take 1 tablet (25 mg total) by mouth daily. [facility] varenicline (CHANTIX) 1 mg tablet 2022-07 17:44: 21 Yes 1mg Q.5D Take 1 tablet (1 mg total) by mouth 2 (two) times daily Give with meals and with a full glass of water.. [facility] albuterol HFA (VENTOLIN HFA) 90 mcg/actuati on inhaler 2022-07 17:44: 21 Yes 1{puff} Inhale 1 puff by mouth via inhaler every 6 (six) hours as needed for Wheezing. [facility] fluticasone -umeclidin- vilanter (Trelegy Ellipta) 200-62.5-25 mcg DsDv 2022-07 17:44: 21 Yes QD Inhale by mouth via inhaler daily. [facility] atorvastati n (LIPITOR) 20 MG tablet 2022-07 17:44: 21 Yes 20mg QD Take 1 tablet (20 mg total) by mouth daily. [facility] acetaminoph en-codeine (TYLENOL #3) 300-30 mg per tablet 2022-07 17:44: 21 Yes 1{tbl} Take 1 tablet by mouth every 4 (four) hours as needed for Pain. [facility] Naloxone (NARCAN) 4 MG/0.1ML nasal Liquid 2022-07 00:00: 00 Yes 4mg 0.1 mL (4 mg total) as needed. Cynthia gonzalez senna (SENOKOT) 8.6 mg tablet 2022-07 00:00: 00 06-18 23:59 :00 No 17.2mg Q.5D Take 2 tablets (17.2 mg total) by mouth 2 (two) times daily for 14 days. [facility] senna (SENOKOT) 8.6 mg tablet 2022-07 00:00: 00 06-18 23:59 :00 No 17.2mg Q.5D Take 2 tablets (17.2 mg total) by mouth 2 (two) times daily for 14 days. [facility] senna (SENOKOT) 8.6 mg tablet 2022-07 00:00: 00 06-18 23:59 :00 No 17.2mg Q.5D Take 2 tablets (17.2 mg total) by mouth 2 (two) times daily for 14 days. [facility] senna (SENOKOT) 8.6 mg tablet 2022-07 00:00: 00 06-18 23:59 :00 No 17.2mg Q.5D Take 2 tablets (17.2 mg total) by mouth 2 (two) times daily for 14 days. [facility] senna (SENOKOT) 8.6 mg tablet 2022-07 00:00: 00 06-18 23:59 :00 No 17.2mg Q.5D Take 2 tablets (17.2 mg total) by mouth 2 (two) times daily for 14 days. [facility] senna (SENOKOT) 8.6 mg tablet 2022-07 00:00: 00 06-18 23:59 :00 No 17.2mg Q.5D Take 2 tablets (17.2 mg total) by mouth 2 (two) times daily for 14 days. [facility] senna (SENOKOT) 8.6 mg tablet 2022-07 00:00: 00 06-18 23:59 :00 No 17.2mg Q.5D Take 2 tablets (17.2 mg total) by mouth 2 (two) times daily for 14 days. [facility] senna (SENOKOT) 8.6 mg tablet 2022-07 00:00: 00 06-18 23:59 :00 No 17.2mg Q.5D Take 2 tablets (17.2 mg total) by mouth 2 (two) times daily for 14 days. [facility] senna (SENOKOT) 8.6 mg tablet 2022-07 00:00: 00 06-18 23:59 :00 No 17.2mg Q.5D Take 2 tablets (17.2 mg total) by mouth 2 (two) times daily for 14 days. [facility] senna (SENOKOT) 8.6 mg tablet 2022-0716 00:00: 00 06-18 23:59 :00 No 17.2mg Q.5D Take 2 tablets (17.2 mg total) by mouth 2 (two) times daily for 14 days. [facility] senna (SENOKOT) 8.6 mg tablet 2022-0716 00:00: 00 06-18 23:59 :00 No 17.2mg Q.5D Take 2 tablets (17.2 mg total) by mouth 2 (two) times daily for 14 days. [facility] senna (SENOKOT) 8.6 mg tablet 2022-0716 00:00: 00 06-18 23:59 :00 No 17.2mg Q.5D Take 2 tablets (17.2 mg total) by mouth 2 (two) times daily for 14 days. [facility] senna (SENOKOT) 8.6 mg tablet 2022-07 00:00: 00 06-18 23:59 :00 No 17.2mg Q.5D Take 2 tablets (17.2 mg total) by mouth 2 (two) times daily for 14 days. [facility] senna (SENOKOT) 8.6 mg tablet 2022-07 00:00: 00 06-18 23:59 :00 No 17.2mg Q.5D Take 2 tablets (17.2 mg total) by mouth 2 (two) times daily for 14 days. [facility] senna (SENOKOT) 8.6 mg tablet 2022-07 00:00: 00 06-18 23:59 :00 No 17.2mg Q.5D Take 2 tablets (17.2 mg total) by mouth 2 (two) times daily for 14 days. [facility] senna (SENOKOT) 8.6 mg tablet 2022-0716 00:00: 00 06-18 23:59 :00 No 17.2mg Q.5D Take 2 tablets (17.2 mg total) by mouth 2 (two) times daily for 14 days. [facility] senna (SENOKOT) 8.6 mg tablet 2022-0716 00:00: 00 06-18 23:59 :00 No 17.2mg Q.5D Take 2 tablets (17.2 mg total) by mouth 2 (two) times daily for 14 days. [facility] senna (SENOKOT) 8.6 mg tablet 2022-0716 00:00: 00 06-18 23:59 :00 No 17.2mg Q.5D Take 2 tablets (17.2 mg total) by mouth 2 (two) times daily for 14 days. [facility] senna (SENOKOT) 8.6 mg tablet 2022-07 00:00: 00 06-18 23:59 :00 No 17.2mg Q.5D Take 2 tablets (17.2 mg total) by mouth 2 (two) times daily for 14 days. [facility] senna (SENOKOT) 8.6 mg tablet 2022-07 00:00: 00 06-18 23:59 :00 No 17.2mg Q.5D Take 2 tablets (17.2 mg total) by mouth 2 (two) times daily for 14 days. [facility] senna (SENOKOT) 8.6 mg tablet 2022-07 00:00: 00 06-18 23:59 :00 No 17.2mg Q.5D Take 2 tablets (17.2 mg total) by mouth 2 (two) times daily for 14 days. [facility] senna (SENOKOT) 8.6 mg tablet 2022-07 00:00: 00 06-18 23:59 :00 No 17.2mg Q.5D Take 2 tablets (17.2 mg total) by mouth 2 (two) times daily for 14 days. [facility] senna (SENOKOT) 8.6 mg tablet 2022-0716 00:00: 00 06-18 23:59 :00 No 17.2mg Q.5D Take 2 tablets (17.2 mg total) by mouth 2 (two) times daily for 14 days. [facility] senna (SENOKOT) 8.6 mg tablet 2022-0716 00:00: 00 06-18 23:59 :00 No 17.2mg Q.5D Take 2 tablets (17.2 mg total) by mouth 2 (two) times daily for 14 days. [facility] senna (SENOKOT) 8.6 mg tablet 2022-07 00:00: 00 06-18 23:59 :00 No 17.2mg Q.5D Take 2 tablets (17.2 mg total) by mouth 2 (two) times daily for 14 days. [facility] senna (SENOKOT) 8.6 mg tablet 2022-07 00:00: 00 06-18 23:59 :00 No 17.2mg Q.5D Take 2 tablets (17.2 mg total) by mouth 2 (two) times daily for 14 days. [facility] senna (SENOKOT) 8.6 mg tablet 2022-07 00:00: 00 06-18 23:59 :00 No 17.2mg Q.5D Take 2 tablets (17.2 mg total) by mouth 2 (two) times daily for 14 days. [facility] senna (SENOKOT) 8.6 mg tablet 2022-07 00:00: 00 06-18 23:59 :00 No 17.2mg Q.5D Take 2 tablets (17.2 mg total) by mouth 2 (two) times daily for 14 days. [facility] senna (SENOKOT) 8.6 mg tablet 2022-07 00:00: 00 06-18 23:59 :00 No 17.2mg Q.5D Take 2 tablets (17.2 mg total) by mouth 2 (two) times daily for 14 days. [facility] senna (SENOKOT) 8.6 mg tablet 2022-07 00:00: 00 06-18 23:59 :00 No 17.2mg Q.5D Take 2 tablets (17.2 mg total) by mouth 2 (two) times daily for 14 days. [facility] senna (SENOKOT) 8.6 mg tablet 2022-07 00:00: 00 06-18 23:59 :00 No 17.2mg Q.5D Take 2 tablets (17.2 mg total) by mouth 2 (two) times daily for 14 days. [facility] senna (SENOKOT) 8.6 mg tablet 2022-07 00:00: 00 06-18 23:59 :00 No 17.2mg Q.5D Take 2 tablets (17.2 mg total) by mouth 2 (two) times daily for 14 days. [facility] senna (SENOKOT) 8.6 mg tablet 2022-07 00:00: 00 06-18 23:59 :00 No 17.2mg Q.5D Take 2 tablets (17.2 mg total) by mouth 2 (two) times daily for 14 days. [facility] senna (SENOKOT) 8.6 mg tablet 2022-07 00:00: 00 06-18 23:59 :00 No 17.2mg Q.5D Take 2 tablets (17.2 mg total) by mouth 2 (two) times daily for 14 days. [facility] cyclobenzap rine (FLEXERIL) 10 MG tablet 2022-07 00:00: 00 06-16 00:00 :00 No 10mg [id number] 3D Take 1 tablet (10 mg total) by mouth 3 (three) times daily for 10 days. [facility] methocarbam oL (ROBAXIN) 500 MG tablet 2022-07 00:00: 00 06-16 00:00 :00 No 500mg Q.25D Take 1 tablet (500 mg total) by mouth 4 (four) times daily for 10 days. [facility] cyclobenzap rine (FLEXERIL) 10 MG tablet 2022-07 00:00: 00 06-16 00:00 :00 No 10mg Q.[id number] 3D Take 1 tablet (10 mg total) by mouth 3 (three) times daily for 10 days. [facility] methocarbam oL (ROBAXIN) 500 MG tablet 2022-07 00:00: 00 06-16 00:00 :00 No 500mg Q.25D Take 1 tablet (500 mg total) by mouth 4 (four) times daily for 10 days. [facility] cyclobenzap rine (FLEXERIL) 10 MG tablet 2022-07 00:00: 00 06-16 00:00 :00 No 10mg Q.[id number] 3D Take 1 tablet (10 mg total) by mouth 3 (three) times daily for 10 days. [facility] methocarbam oL (ROBAXIN) 500 MG tablet 2022-07 00:00: 00 06-16 00:00 :00 No 500mg Q.25D Take 1 tablet (500 mg total) by mouth 4 (four) times daily for 10 days. [facility] cyclobenzap rine (FLEXERIL) 10 MG tablet 2022-07 00:00: 00 06-16 00:00 :00 No 10mg Q.[id number] 3D Take 1 tablet (10 mg total) by mouth 3 (three) times daily for 10 days. [facility] methocarbam oL (ROBAXIN) 500 MG tablet 2022-07 00:00: 00 06-16 00:00 :00 No 500mg Q.25D Take 1 tablet (500 mg total) by mouth 4 (four) times daily for 10 days. [facility] cyclobenzap rine (FLEXERIL) 10 MG tablet 2022-07 00:00: 00 06-16 00:00 :00 No 10mg Q.[id number] 3D Take 1 tablet (10 mg total) by mouth 3 (three) times daily for 10 days. [facility] methocarbam oL (ROBAXIN) 500 MG tablet 2022-07 00:00: 00 06-16 00:00 :00 No 500mg Q.25D Take 1 tablet (500 mg total) by mouth 4 (four) times daily for 10 days. [facility] cyclobenzap rine (FLEXERIL) 10 MG tablet 2022-07 00:00: 00 06-16 00:00 :00 No 10mg Q.[id number] 3D Take 1 tablet (10 mg total) by mouth 3 (three) times daily for 10 days. [facility] methocarbam oL (ROBAXIN) 500 MG tablet 2022-07 00:00: 00 06-16 00:00 :00 No 500mg Q.25D Take 1 tablet (500 mg total) by mouth 4 (four) times daily for 10 days. [facility] cyclobenzap rine (FLEXERIL) 10 MG tablet 2022-07 00:00: 00 06-16 00:00 :00 No 10mg Q.[id number] 3D Take 1 tablet (10 mg total) by mouth 3 (three) times daily for 10 days. [facility] methocarbam oL (ROBAXIN) 500 MG tablet 2022-07 00:00: 00 06-16 00:00 :00 No 500mg Q.25D Take 1 tablet (500 mg total) by mouth 4 (four) times daily for 10 days. [facility] cyclobenzap rine (FLEXERIL) 10 MG tablet 2022-07 00:00: 00 06-16 00:00 :00 No 10mg Q.[id number] 3D Take 1 tablet (10 mg total) by mouth 3 (three) times daily for 10 days. [facility] methocarbam oL (ROBAXIN) 500 MG tablet 2022-07 00:00: 00 06-16 00:00 :00 No 500mg Q.25D Take 1 tablet (500 mg total) by mouth 4 (four) times daily for 10 days. [facility] cyclobenzap rine (FLEXERIL) 10 MG tablet 2022-07 00:00: 00 06-16 00:00 :00 No 10mg Q.[id number] 3D Take 1 tablet (10 mg total) by mouth 3 (three) times daily for 10 days. [facility] methocarbam oL (ROBAXIN) 500 MG tablet 2022-07 00:00: 00 06-16 00:00 :00 No 500mg Q.25D Take 1 tablet (500 mg total) by mouth 4 (four) times daily for 10 days. [facility] cyclobenzap rine (FLEXERIL) 10 MG tablet 2022-07 00:00: 00 06-16 00:00 :00 No 10mg Q.[id number] 3D Take 1 tablet (10 mg total) by mouth 3 (three) times daily for 10 days. [facility] methocarbam oL (ROBAXIN) 500 MG tablet 2022-07 00:00: 00 06-16 00:00 :00 No 500mg Q.25D Take 1 tablet (500 mg total) by mouth 4 (four) times daily for 10 days. [facility] cyclobenzap rine (FLEXERIL) 10 MG tablet 2022-07 00:00: 00 06-16 00:00 :00 No 10mg Q.[id number] 3D Take 1 tablet (10 mg total) by mouth 3 (three) times daily for 10 days. [facility] methocarbam oL (ROBAXIN) 500 MG tablet 2022-07 00:00: 00 06-16 00:00 :00 No 500mg Q.25D Take 1 tablet (500 mg total) by mouth 4 (four) times daily for 10 days. [facility] cyclobenzap rine (FLEXERIL) 10 MG tablet 2022-07 00:00: 00 06-16 00:00 :00 No 10mg Q.[id number] 3D Take 1 tablet (10 mg total) by mouth 3 (three) times daily for 10 days. [facility] methocarbam oL (ROBAXIN) 500 MG tablet 2022-07 00:00: 00 06-16 00:00 :00 No 500mg Q.25D Take 1 tablet (500 mg total) by mouth 4 (four) times daily for 10 days. [facility] cyclobenzap rine (FLEXERIL) 10 MG tablet 2022-07 00:00: 00 06-16 00:00 :00 No 10mg Q.[id number] 3D Take 1 tablet (10 mg total) by mouth 3 (three) times daily for 10 days. [facility] methocarbam oL (ROBAXIN) 500 MG tablet 2022-07 00:00: 00 06-16 00:00 :00 No 500mg Q.25D Take 1 tablet (500 mg total) by mouth 4 (four) times daily for 10 days. [facility] cyclobenzap rine (FLEXERIL) 10 MG tablet 2022-07 00:00: 00 06-16 00:00 :00 No 10mg Q.[id number] 3D Take 1 tablet (10 mg total) by mouth 3 (three) times daily for 10 days. [facility] methocarbam oL (ROBAXIN) 500 MG tablet 2022-07 00:00: 00 06-16 00:00 :00 No 500mg Q.25D Take 1 tablet (500 mg total) by mouth 4 (four) times daily for 10 days. [facility] cyclobenzap rine (FLEXERIL) 10 MG tablet 2022-07 00:00: 00 06-16 00:00 :00 No 10mg Q.[id number] 3D Take 1 tablet (10 mg total) by mouth 3 (three) times daily for 10 days. [facility] methocarbam oL (ROBAXIN) 500 MG tablet 2022-07 00:00: 00 06-16 00:00 :00 No 500mg Q.25D Take 1 tablet (500 mg total) by mouth 4 (four) times daily for 10 days. [facility] cyclobenzap rine (FLEXERIL) 10 MG tablet 2022-07 00:00: 00 06-16 00:00 :00 No 10mg Q.[id number] 3D Take 1 tablet (10 mg total) by mouth 3 (three) times daily for 10 days. [facility] methocarbam oL (ROBAXIN) 500 MG tablet 2022-07 00:00: 00 06-16 00:00 :00 No 500mg Q.25D Take 1 tablet (500 mg total) by mouth 4 (four) times daily for 10 days. [facility] cyclobenzap rine (FLEXERIL) 10 MG tablet 2022-07 00:00: 00 06-16 00:00 :00 No 10mg Q.[id number] 3D Take 1 tablet (10 mg total) by mouth 3 (three) times daily for 10 days. [facility] methocarbam oL (ROBAXIN) 500 MG tablet 2022-07 00:00: 00 06-16 00:00 :00 No 500mg Q.25D Take 1 tablet (500 mg total) by mouth 4 (four) times daily for 10 days. [facility] cyclobenzap rine (FLEXERIL) 10 MG tablet 2022-07 00:00: 00 06-16 00:00 :00 No 10mg Q.[id number] 3D Take 1 tablet (10 mg total) by mouth 3 (three) times daily for 10 days. [facility] methocarbam oL (ROBAXIN) 500 MG tablet 2022-07 00:00: 00 06-16 00:00 :00 No 500mg Q.25D Take 1 tablet (500 mg total) by mouth 4 (four) times daily for 10 days. [facility] cyclobenzap rine (FLEXERIL) 10 MG tablet 2022-07 00:00: 00 06-16 00:00 :00 No 10mg Q.[id number] 3D Take 1 tablet (10 mg total) by mouth 3 (three) times daily for 10 days. [facility] methocarbam oL (ROBAXIN) 500 MG tablet 2022-07 00:00: 00 06-16 00:00 :00 No 500mg Q.25D Take 1 tablet (500 mg total) by mouth 4 (four) times daily for 10 days. [facility] cyclobenzap rine (FLEXERIL) 10 MG tablet 2022-07 00:00: 00 06-16 00:00 :00 No 10mg Q.[id number] 3D Take 1 tablet (10 mg total) by mouth 3 (three) times daily for 10 days. [facility] methocarbam oL (ROBAXIN) 500 MG tablet 2022-07 00:00: 00 06-16 00:00 :00 No 500mg Q.25D Take 1 tablet (500 mg total) by mouth 4 (four) times daily for 10 days. [facility] cyclobenzap rine (FLEXERIL) 10 MG tablet 2022-07 00:00: 00 06-16 00:00 :00 No 10mg Q.[id number] 3D Take 1 tablet (10 mg total) by mouth 3 (three) times daily for 10 days. [facility] methocarbam oL (ROBAXIN) 500 MG tablet 2022-07 00:00: 00 06-16 00:00 :00 No 500mg Q.25D Take 1 tablet (500 mg total) by mouth 4 (four) times daily for 10 days. [facility] cyclobenzap rine (FLEXERIL) 10 MG tablet 2022-07 00:00: 00 06-16 00:00 :00 No 10mg Q.[id number] 3D Take 1 tablet (10 mg total) by mouth 3 (three) times daily for 10 days. [facility] methocarbam oL (ROBAXIN) 500 MG tablet 2022-07 00:00: 00 06-16 00:00 :00 No 500mg Q.25D Take 1 tablet (500 mg total) by mouth 4 (four) times daily for 10 days. [facility] cyclobenzap rine (FLEXERIL) 10 MG tablet 2022-07 00:00: 00 06-16 00:00 :00 No 10mg Q.[id number] 3D Take 1 tablet (10 mg total) by mouth 3 (three) times daily for 10 days. [facility] methocarbam oL (ROBAXIN) 500 MG tablet 2022-07 00:00: 00 06-16 00:00 :00 No 500mg Q.25D Take 1 tablet (500 mg total) by mouth 4 (four) times daily for 10 days. [facility] cyclobenzap rine (FLEXERIL) 10 MG tablet 2022-07 00:00: 00 06-16 00:00 :00 No 10mg Q.[id number] 3D Take 1 tablet (10 mg total) by mouth 3 (three) times daily for 10 days. [facility] methocarbam oL (ROBAXIN) 500 MG tablet 2022-07 00:00: 00 06-16 00:00 :00 No 500mg Q.25D Take 1 tablet (500 mg total) by mouth 4 (four) times daily for 10 days. [facility] cyclobenzap rine (FLEXERIL) 10 MG tablet 2022-07 00:00: 00 06-16 00:00 :00 No 10mg Q.[id number] 3D Take 1 tablet (10 mg total) by mouth 3 (three) times daily for 10 days. [facility] methocarbam oL (ROBAXIN) 500 MG tablet 2022-07 00:00: 00 06-16 00:00 :00 No 500mg Q.25D Take 1 tablet (500 mg total) by mouth 4 (four) times daily for 10 days. [facility] cyclobenzap rine (FLEXERIL) 10 MG tablet 2022-07 00:00: 00 06-16 00:00 :00 No 10mg Q.[id number] 3D Take 1 tablet (10 mg total) by mouth 3 (three) times daily for 10 days. [facility] methocarbam oL (ROBAXIN) 500 MG tablet 2022-07 00:00: 00 06-16 00:00 :00 No 500mg Q.25D Take 1 tablet (500 mg total) by mouth 4 (four) times daily for 10 days. [facility] cyclobenzap rine (FLEXERIL) 10 MG tablet 2022-07 00:00: 00 06-16 00:00 :00 No 10mg Q.[id number] 3D Take 1 tablet (10 mg total) by mouth 3 (three) times daily for 10 days. [facility] methocarbam oL (ROBAXIN) 500 MG tablet 2022-07 00:00: 00 06-16 00:00 :00 No 500mg Q.25D Take 1 tablet (500 mg total) by mouth 4 (four) times daily for 10 days. [facility] cyclobenzap rine (FLEXERIL) 10 MG tablet 2022-07 00:00: 00 06-16 00:00 :00 No 10mg Q.[id number] 3D Take 1 tablet (10 mg total) by mouth 3 (three) times daily for 10 days. [facility] methocarbam oL (ROBAXIN) 500 MG tablet 2022-07 00:00: 00 06-16 00:00 :00 No 500mg Q.25D Take 1 tablet (500 mg total) by mouth 4 (four) times daily for 10 days. [facility] cyclobenzap rine (FLEXERIL) 10 MG tablet 2022-07 00:00: 00 06-16 00:00 :00 No 10mg Q.[id number] 3D Take 1 tablet (10 mg total) by mouth 3 (three) times daily for 10 days. [facility] methocarbam oL (ROBAXIN) 500 MG tablet 2022-07 00:00: 00 06-16 00:00 :00 No 500mg Q.25D Take 1 tablet (500 mg total) by mouth 4 (four) times daily for 10 days. [facility] cyclobenzap rine (FLEXERIL) 10 MG tablet 2022-07 00:00: 00 06-16 00:00 :00 No 10mg Q.[id number] 3D Take 1 tablet (10 mg total) by mouth 3 (three) times daily for 10 days. [facility] methocarbam oL (ROBAXIN) 500 MG tablet 2022-07 00:00: 00 06-16 00:00 :00 No 500mg Q.25D Take 1 tablet (500 mg total) by mouth 4 (four) times daily for 10 days. [facility] cyclobenzap rine (FLEXERIL) 10 MG tablet 2022-07 00:00: 00 06-16 00:00 :00 No 10mg Q.[id number] 3D Take 1 tablet (10 mg total) by mouth 3 (three) times daily for 10 days. [facility] methocarbam oL (ROBAXIN) 500 MG tablet 2022-07 00:00: 00 06-16 00:00 :00 No 500mg Q.25D Take 1 tablet (500 mg total) by mouth 4 (four) times daily for 10 days. [facility] cyclobenzap rine (FLEXERIL) 10 MG tablet 2022-07 00:00: 00 06-14 23:59 :00 No 10mg Q.[id number] 3D Take 1 tablet (10 mg total) by mouth 3 (three) times daily for 10 days. [facility] methocarbam oL (ROBAXIN) 500 MG tablet 2022-07 00:00: 00 06-14 23:59 :00 No 500mg Q.25D Take 1 tablet (500 mg total) by mouth 4 (four) times daily for 10 days. [facility] cyclobenzap rine (FLEXERIL) 10 MG tablet 2022-07 00:00: 00 06-14 23:59 :00 No 10mg Q.[id number] 3D Take 1 tablet (10 mg total) by mouth 3 (three) times daily for 10 days. [facility] methocarbam oL (ROBAXIN) 500 MG tablet 2022-07 00:00: 00 06-14 23:59 :00 No 500mg Q.25D Take 1 tablet (500 mg total) by mouth 4 (four) times daily for 10 days. [facility] cyclobenzap rine (FLEXERIL) 10 MG tablet 2022-07 00:00: 00 06-14 23:59 :00 No 10mg Q.[id number] 3D Take 1 tablet (10 mg total) by mouth 3 (three) times daily for 10 days. [facility] methocarbam oL (ROBAXIN) 500 MG tablet 2022-07 00:00: 00 06-14 23:59 :00 No 500mg Q.25D Take 1 tablet (500 mg total) by mouth 4 (four) times daily for 10 days. [facility] lactulose (CHRONULAC) 20 gram/30 mL solution 2022-07 00:00: 00 06-11 23:59 :00 No 20g Q.[id number] 3D Take 30 mLs (20 g total) by mouth 3 (three) times daily for 7 days. [facility] ondansetron (ZOFRAN-ODT ) 4 MG disintegrat ing tablet 2022-07 00:00: 00 06-11 23:59 :00 No 4mg Take 1 tablet (4 mg total) by mouth every 6 (six) hours as needed for up to 7 days. [facility] lactulose (CHRONULAC) 20 gram/30 mL solution 2022-07 00:00: 00 06-11 23:59 :00 No 20g Q.[id number] 3D Take 30 mLs (20 g total) by mouth 3 (three) times daily for 7 days. [facility] ondansetron (ZOFRAN-ODT ) 4 MG disintegrat ing tablet 2022-07 00:00: 00 06-11 23:59 :00 No 4mg Take 1 tablet (4 mg total) by mouth every 6 (six) hours as needed for up to 7 days. [facility] lactulose (CHRONULAC) 20 gram/30 mL solution 2022-07 00:00: 00 06-11 23:59 :00 No 20g Q.[id number] 3D Take 30 mLs (20 g total) by mouth 3 (three) times daily for 7 days. [facility] ondansetron (ZOFRAN-ODT ) 4 MG disintegrat ing tablet 2022-07 00:00: 00 06-11 23:59 :00 No 4mg Take 1 tablet (4 mg total) by mouth every 6 (six) hours as needed for up to 7 days. [facility] lactulose (CHRONULAC) 20 gram/30 mL solution 2022-07 00:00: 00 06-11 23:59 :00 No 20g Q.[id number] 3D Take 30 mLs (20 g total) by mouth 3 (three) times daily for 7 days. [facility] ondansetron (ZOFRAN-ODT ) 4 MG disintegrat ing tablet 2022-07 00:00: 00 06-11 23:59 :00 No 4mg Take 1 tablet (4 mg total) by mouth every 6 (six) hours as needed for up to 7 days. [facility] lactulose (CHRONULAC) 20 gram/30 mL solution 2022-07 00:00: 00 06-11 23:59 :00 No 20g Q.[id number] 3D Take 30 mLs (20 g total) by mouth 3 (three) times daily for 7 days. [facility] ondansetron (ZOFRAN-ODT ) 4 MG disintegrat ing tablet 2022-07 00:00: 00 06-11 23:59 :00 No 4mg Take 1 tablet (4 mg total) by mouth every 6 (six) hours as needed for up to 7 days. [facility] lactulose (CHRONULAC) 20 gram/30 mL solution 2022-07 00:00: 00 06-11 23:59 :00 No 20g Q.[id number] 3D Take 30 mLs (20 g total) by mouth 3 (three) times daily for 7 days. [facility] ondansetron (ZOFRAN-ODT ) 4 MG disintegrat ing tablet 2022-07 00:00: 00 06-11 23:59 :00 No 4mg Take 1 tablet (4 mg total) by mouth every 6 (six) hours as needed for up to 7 days. [facility] lactulose (CHRONULAC) 20 gram/30 mL solution 2022-07 00:00: 00 06-11 23:59 :00 No 20g Q.[id number] 3D Take 30 mLs (20 g total) by mouth 3 (three) times daily for 7 days. [facility] ondansetron (ZOFRAN-ODT ) 4 MG disintegrat ing tablet 2022-07 00:00: 00 06-11 23:59 :00 No 4mg Take 1 tablet (4 mg total) by mouth every 6 (six) hours as needed for up to 7 days. [facility] lactulose (CHRONULAC) 20 gram/30 mL solution 2022-07 00:00: 00 06-11 23:59 :00 No 20g Q.[id number] 3D Take 30 mLs (20 g total) by mouth 3 (three) times daily for 7 days. [facility] ondansetron (ZOFRAN-ODT ) 4 MG disintegrat ing tablet 2022-07 00:00: 00 06-11 23:59 :00 No 4mg Take 1 tablet (4 mg total) by mouth every 6 (six) hours as needed for up to 7 days. [facility] lactulose (CHRONULAC) 20 gram/30 mL solution 2022-07 00:00: 00 06-11 23:59 :00 No 20g Q.[id number] 3D Take 30 mLs (20 g total) by mouth 3 (three) times daily for 7 days. [facility] ondansetron (ZOFRAN-ODT ) 4 MG disintegrat ing tablet 2022-07 00:00: 00 06-11 23:59 :00 No 4mg Take 1 tablet (4 mg total) by mouth every 6 (six) hours as needed for up to 7 days. [facility] lactulose (CHRONULAC) 20 gram/30 mL solution 2022-07 00:00: 00 06-11 23:59 :00 No 20g Q.[id number] 3D Take 30 mLs (20 g total) by mouth 3 (three) times daily for 7 days. [facility] ondansetron (ZOFRAN-ODT ) 4 MG disintegrat ing tablet 2022-07 00:00: 00 06-11 23:59 :00 No 4mg Take 1 tablet (4 mg total) by mouth every 6 (six) hours as needed for up to 7 days. [facility] lactulose (CHRONULAC) 20 gram/30 mL solution 2022-07 00:00: 00 06-11 23:59 :00 No 20g Q.[id number] 3D Take 30 mLs (20 g total) by mouth 3 (three) times daily for 7 days. [facility] ondansetron (ZOFRAN-ODT ) 4 MG disintegrat ing tablet 2022-07 00:00: 00 06-11 23:59 :00 No 4mg Take 1 tablet (4 mg total) by mouth every 6 (six) hours as needed for up to 7 days. [facility] lactulose (CHRONULAC) 20 gram/30 mL solution 2022-07 00:00: 00 06-11 23:59 :00 No 20g Q.[id number] 3D Take 30 mLs (20 g total) by mouth 3 (three) times daily for 7 days. [facility] ondansetron (ZOFRAN-ODT ) 4 MG disintegrat ing tablet 2022-07 00:00: 00 06-11 23:59 :00 No 4mg Take 1 tablet (4 mg total) by mouth every 6 (six) hours as needed for up to 7 days. [facility] lactulose (CHRONULAC) 20 gram/30 mL solution 2022-07 00:00: 00 06-11 23:59 :00 No 20g Q.[id number] 3D Take 30 mLs (20 g total) by mouth 3 (three) times daily for 7 days. [facility] ondansetron (ZOFRAN-ODT ) 4 MG disintegrat ing tablet 2022-07 00:00: 00 06-11 23:59 :00 No 4mg Take 1 tablet (4 mg total) by mouth every 6 (six) hours as needed for up to 7 days. [facility] lactulose (CHRONULAC) 20 gram/30 mL solution 2022-07 00:00: 00 06-11 23:59 :00 No 20g Q.[id number] 3D Take 30 mLs (20 g total) by mouth 3 (three) times daily for 7 days. [facility] ondansetron (ZOFRAN-ODT ) 4 MG disintegrat ing tablet 2022-07 00:00: 00 06-11 23:59 :00 No 4mg Take 1 tablet (4 mg total) by mouth every 6 (six) hours as needed for up to 7 days. [facility] lactulose (CHRONULAC) 20 gram/30 mL solution 2022-07 00:00: 00 06-11 23:59 :00 No 20g Q.[id number] 3D Take 30 mLs (20 g total) by mouth 3 (three) times daily for 7 days. [facility] ondansetron (ZOFRAN-ODT ) 4 MG disintegrat ing tablet 2022-07 00:00: 00 06-11 23:59 :00 No 4mg Take 1 tablet (4 mg total) by mouth every 6 (six) hours as needed for up to 7 days. [facility] lactulose (CHRONULAC) 20 gram/30 mL solution 2022-07 00:00: 00 06-11 23:59 :00 No 20g Q.[id number] 3D Take 30 mLs (20 g total) by mouth 3 (three) times daily for 7 days. [facility] ondansetron (ZOFRAN-ODT ) 4 MG disintegrat ing tablet 2022-07 00:00: 00 06-11 23:59 :00 No 4mg Take 1 tablet (4 mg total) by mouth every 6 (six) hours as needed for up to 7 days. [facility] lactulose (CHRONULAC) 20 gram/30 mL solution 2022-07 00:00: 00 06-11 23:59 :00 No 20g Q.[id number] 3D Take 30 mLs (20 g total) by mouth 3 (three) times daily for 7 days. [facility] ondansetron (ZOFRAN-ODT ) 4 MG disintegrat ing tablet 2022-07 00:00: 00 06-11 23:59 :00 No 4mg Take 1 tablet (4 mg total) by mouth every 6 (six) hours as needed for up to 7 days. [facility] lactulose (CHRONULAC) 20 gram/30 mL solution 2022-07 00:00: 00 06-11 23:59 :00 No 20g Q.[id number] 3D Take 30 mLs (20 g total) by mouth 3 (three) times daily for 7 days. [facility] ondansetron (ZOFRAN-ODT ) 4 MG disintegrat ing tablet 2022-07 00:00: 00 06-11 23:59 :00 No 4mg Take 1 tablet (4 mg total) by mouth every 6 (six) hours as needed for up to 7 days. [facility] lactulose (CHRONULAC) 20 gram/30 mL solution 2022-07 00:00: 00 06-11 23:59 :00 No 20g Q.[id number] 3D Take 30 mLs (20 g total) by mouth 3 (three) times daily for 7 days. [facility] ondansetron (ZOFRAN-ODT ) 4 MG disintegrat ing tablet 2022-07 00:00: 00 06-11 23:59 :00 No 4mg Take 1 tablet (4 mg total) by mouth every 6 (six) hours as needed for up to 7 days. [facility] lactulose (CHRONULAC) 20 gram/30 mL solution 2022-07 00:00: 00 06-11 23:59 :00 No 20g Q.[id number] 3D Take 30 mLs (20 g total) by mouth 3 (three) times daily for 7 days. [facility] ondansetron (ZOFRAN-ODT ) 4 MG disintegrat ing tablet 2022-07 00:00: 00 06-11 23:59 :00 No 4mg Take 1 tablet (4 mg total) by mouth every 6 (six) hours as needed for up to 7 days. [facility] lactulose (CHRONULAC) 20 gram/30 mL solution 2022-07 00:00: 00 06-11 23:59 :00 No 20g Q.[id number] 3D Take 30 mLs (20 g total) by mouth 3 (three) times daily for 7 days. [facility] ondansetron (ZOFRAN-ODT ) 4 MG disintegrat ing tablet 2022-07 00:00: 00 06-11 23:59 :00 No 4mg Take 1 tablet (4 mg total) by mouth every 6 (six) hours as needed for up to 7 days. [facility] lactulose (CHRONULAC) 20 gram/30 mL solution 2022-07 00:00: 00 06-11 23:59 :00 No 20g Q.[id number] 3D Take 30 mLs (20 g total) by mouth 3 (three) times daily for 7 days. [facility] ondansetron (ZOFRAN-ODT ) 4 MG disintegrat ing tablet 2022-07 00:00: 00 06-11 23:59 :00 No 4mg Take 1 tablet (4 mg total) by mouth every 6 (six) hours as needed for up to 7 days. [facility] lactulose (CHRONULAC) 20 gram/30 mL solution 2022-07 00:00: 00 06-11 23:59 :00 No 20g Q.[id number] 3D Take 30 mLs (20 g total) by mouth 3 (three) times daily for 7 days. [facility] ondansetron (ZOFRAN-ODT ) 4 MG disintegrat ing tablet 2022-07 00:00: 00 06-11 23:59 :00 No 4mg Take 1 tablet (4 mg total) by mouth every 6 (six) hours as needed for up to 7 days. [facility] lactulose (CHRONULAC) 20 gram/30 mL solution 2022-07 00:00: 00 06-11 23:59 :00 No 20g Q.[id number] 3D Take 30 mLs (20 g total) by mouth 3 (three) times daily for 7 days. [facility] ondansetron (ZOFRAN-ODT ) 4 MG disintegrat ing tablet 2022-07 00:00: 00 06-11 23:59 :00 No 4mg Take 1 tablet (4 mg total) by mouth every 6 (six) hours as needed for up to 7 days. [facility] lactulose (CHRONULAC) 20 gram/30 mL solution 2022-07 00:00: 00 06-11 23:59 :00 No 20g Q.[id number] 3D Take 30 mLs (20 g total) by mouth 3 (three) times daily for 7 days. [facility] ondansetron (ZOFRAN-ODT ) 4 MG disintegrat ing tablet 2022-07 00:00: 00 06-11 23:59 :00 No 4mg Take 1 tablet (4 mg total) by mouth every 6 (six) hours as needed for up to 7 days. [facility] lactulose (CHRONULAC) 20 gram/30 mL solution 2022-07 00:00: 00 06-11 23:59 :00 No 20g Q.[id number] 3D Take 30 mLs (20 g total) by mouth 3 (three) times daily for 7 days. [facility] ondansetron (ZOFRAN-ODT ) 4 MG disintegrat ing tablet 2022-07 00:00: 00 06-11 23:59 :00 No 4mg Take 1 tablet (4 mg total) by mouth every 6 (six) hours as needed for up to 7 days. [facility] lactulose (CHRONULAC) 20 gram/30 mL solution 2022-07 00:00: 00 06-11 23:59 :00 No 20g Q.[id number] 3D Take 30 mLs (20 g total) by mouth 3 (three) times daily for 7 days. [facility] ondansetron (ZOFRAN-ODT ) 4 MG disintegrat ing tablet 2022-07 00:00: 00 06-11 23:59 :00 No 4mg Take 1 tablet (4 mg total) by mouth every 6 (six) hours as needed for up to 7 days. [facility] lactulose (CHRONULAC) 20 gram/30 mL solution 2022-07 00:00: 00 06-11 23:59 :00 No 20g Q.[id number] 3D Take 30 mLs (20 g total) by mouth 3 (three) times daily for 7 days. [facility] ondansetron (ZOFRAN-ODT ) 4 MG disintegrat ing tablet 2022-07 00:00: 00 06-11 23:59 :00 No 4mg Take 1 tablet (4 mg total) by mouth every 6 (six) hours as needed for up to 7 days. [facility] lactulose (CHRONULAC) 20 gram/30 mL solution 2022-07 00:00: 00 06-11 23:59 :00 No 20g Q.[id number] 3D Take 30 mLs (20 g total) by mouth 3 (three) times daily for 7 days. [facility] ondansetron (ZOFRAN-ODT ) 4 MG disintegrat ing tablet 2022-07 00:00: 00 06-11 23:59 :00 No 4mg Take 1 tablet (4 mg total) by mouth every 6 (six) hours as needed for up to 7 days. [facility] lactulose (CHRONULAC) 20 gram/30 mL solution 2022-07 00:00: 00 06-11 23:59 :00 No 20g Q.[id number] 3D Take 30 mLs (20 g total) by mouth 3 (three) times daily for 7 days. [facility] ondansetron (ZOFRAN-ODT ) 4 MG disintegrat ing tablet 2022-07 00:00: 00 06-11 23:59 :00 No 4mg Take 1 tablet (4 mg total) by mouth every 6 (six) hours as needed for up to 7 days. [facility] lactulose (CHRONULAC) 20 gram/30 mL solution 2022-07 00:00: 00 06-11 23:59 :00 No 20g Q.[id number] 3D Take 30 mLs (20 g total) by mouth 3 (three) times daily for 7 days. [facility] ondansetron (ZOFRAN-ODT ) 4 MG disintegrat ing tablet 2022-07 00:00: 00 06-11 23:59 :00 No 4mg Take 1 tablet (4 mg total) by mouth every 6 (six) hours as needed for up to 7 days. [facility] lactulose (CHRONULAC) 20 gram/30 mL solution 2022-07 00:00: 00 06-11 23:59 :00 No 20g Q.[id number] 3D Take 30 mLs (20 g total) by mouth 3 (three) times daily for 7 days. [facility] ondansetron (ZOFRAN-ODT ) 4 MG disintegrat ing tablet 2022-07 00:00: 00 06-11 23:59 :00 No 4mg Take 1 tablet (4 mg total) by mouth every 6 (six) hours as needed for up to 7 days. [facility] lactulose (CHRONULAC) 20 gram/30 mL solution 2022-07 00:00: 00 06-11 23:59 :00 No 20g Q.[id number] 3D Take 30 mLs (20 g total) by mouth 3 (three) times daily for 7 days. [facility] ondansetron (ZOFRAN-ODT ) 4 MG disintegrat ing tablet 2022-07 00:00: 00 06-11 23:59 :00 No 4mg Take 1 tablet (4 mg total) by mouth every 6 (six) hours as needed for up to 7 days. [facility] lactulose (CHRONULAC) 20 gram/30 mL solution 2022-07 00:00: 00 06-11 23:59 :00 No 20g Q.[id number] 3D Take 30 mLs (20 g total) by mouth 3 (three) times daily for 7 days. [facility] ondansetron (ZOFRAN-ODT ) 4 MG disintegrat ing tablet 2022-07 00:00: 00 06-11 23:59 :00 No 4mg Take 1 tablet (4 mg total) by mouth every 6 (six) hours as needed for up to 7 days. [facility] metoprolol succinate (TOPROL-XL) 25 MG 24 hr tablet 2022-07 15:23: 22 Yes 25mg QD Take 1 tablet (25 mg total) by mouth daily. [facility] varenicline (CHANTIX) 1 mg tablet 2022-07 15:23: 22 Yes 1mg Q.5D Take 1 tablet (1 mg total) by mouth 2 (two) times daily Give with meals and with a full glass of water.. [facility] albuterol HFA (VENTOLIN HFA) 90 mcg/actuati on inhaler 2022-07 15:23: 22 Yes 1{puff} Inhale 1 puff by mouth via inhaler every 6 (six) hours as needed for Wheezing. [facility] fluticasone -umeclidin- vilanter (Trelegy Ellipta) 200-62.5-25 mcg DsDv 2022-07 15:23: 22 Yes QD Inhale by mouth via inhaler daily. [facility] atorvastati n (LIPITOR) 20 MG tablet 2022-07 15:23: 22 Yes 20mg QD Take 1 tablet (20 mg total) by mouth daily. [facility] acetaminoph en-codeine (TYLENOL #3) 300-30 mg per tablet 2022-07 15:23: 22 Yes 1{tbl} Take 1 tablet by mouth every 4 (four) hours as needed for Pain. [facility] acetaminoph en-codeine (TYLENOL #3) 300-30 mg per tablet 2022-07 09:42: 02 Yes 1{tbl} Take 1 tablet by mouth every 4 (four) hours as needed for Pain. Max Daily Amount: 6 tablets [facility] acetaminoph en-codeine (TYLENOL #3) 300-30 mg per tablet 2022-07 09:42: 02 Yes 1{tbl} Take 1 tablet by mouth every 4 (four) hours as needed for Pain. Max Daily Amount: 6 tablets [facility] varenicline (CHANTIX) 1 mg tablet 2022-07 09:40: 04 Yes 1mg Q.5D Take 1 tablet (1 mg total) by mouth 2 (two) times daily Give with meals and with a full glass of water.. [facility] albuterol HFA (VENTOLIN HFA) 90 mcg/actuati on inhaler 2022-07 09:40: 04 Yes 1{puff} Inhale 1 puff by mouth via inhaler every 6 (six) hours as needed for Wheezing. [facility] fluticasone -umeclidin- vilanter (Trelegy Ellipta) 200-62.5-25 mcg DsDv 2022-07 09:40: 04 Yes QD Inhale by mouth via inhaler daily. [facility] atorvastati n (LIPITOR) 20 MG tablet 2022-07 09:40: 04 Yes 20mg QD Take 1 tablet (20 mg total) by mouth daily. [facility] varenicline (CHANTIX) 1 mg tablet 2022-07 09:40: 04 Yes 1mg Q.5D Take 1 tablet (1 mg total) by mouth 2 (two) times daily Give with meals and with a full glass of water.. [facility] albuterol HFA (VENTOLIN HFA) 90 mcg/actuati on inhaler 2022-07 09:40: 04 Yes 1{puff} Inhale 1 puff by mouth via inhaler every 6 (six) hours as needed for Wheezing. [facility] fluticasone -umeclidin- vilanter (Trelegy Ellipta) 200-62.5-25 mcg DsDv 2022-07 09:40: 04 Yes QD Inhale by mouth via inhaler daily. [facility] atorvastati n (LIPITOR) 20 MG tablet 2022-07 09:40: 04 Yes 20mg QD Take 1 tablet (20 mg total) by mouth daily. [facility] metoprolol succinate (TOPROL-XL) 25 MG 24 hr tablet 2022-07 09:13: 28 Yes 25mg QD Take 1 tablet (25 mg total) by mouth daily. [facility] metoprolol succinate (TOPROL-XL) 25 MG 24 hr tablet 2022-07 09:13: 28 Yes 25mg QD Take 1 tablet (25 mg total) by mouth daily. [facility] Atorvastati n Calcium 20 MG oral Tablet 2022-07 00:00: 00 Yes 20mg Take 1 tablet (20 mg total) by mouth daily. [facility] Metoprolol Succinate 25 MG oral TABLET SR 24 HR 2022-07 00:00: 00 Yes 25mg Take 1 tablet (25 mg total) by mouth daily. [facility] Nitroglycer in 0.4 MG sublingual SL Tab 2022-07 00:00: 00 Yes .4mg 1 tablet (0.4 mg total). [facility] Furosemide 40 MG oral Tablet 2022-07 00:00: 00 Yes 40mg 1 tablet (40 mg total). [facility] Nitroglycer in 0.4 MG sublingual SL Tab 2022-07 017 00:00: 00 Yes .4mg 1 tablet (0.4 mg total). [facility] Fluticasone -Umeclidin- Vilant (Trelegy Ellipta) 100-62.5-25 MCG/ACT inhalation AEROSOL POWDER, BREATH ACTIVATED 2022-07 0 00:00: 00 Yes 1{puff} 1 puff by other route daily. [facility] Aspirin 81 MG oral Chewable Tablet 2022-07 0-16 00:00: 00 Yes 81mg 1 tablet (81 mg total). [facility] Fluticasone -Umeclidin- Vilant (Trelegy Ellipta) 100-62.5-25 MCG/ACT inhalation AEROSOL POWDER, BREATH ACTIVATED 2022-07 00:00: 00 09-29 00:00 :00 No 1{puff} 1 puff by other route daily. [...] tablet (20 mg total) by mouth daily. [facility] furosemide (LASIX) 20 MG tablet 04-03 00:00: 00 04-02 23:59 :00 No 20mg QD Take 1 tablet (20 mg total) by mouth daily. [facility] DULoxetine (CYMBALTA) 30 MG capsule 04-03 00:00: 00 04-02 23:59 :00 No 30mg QD Take 1 capsule (30 mg total) by mouth daily. [facility] furosemide (LASIX) 20 MG tablet 04-03 00:00: 00 04-02 23:59 :00 No 20mg QD Take 1 tablet (20 mg total) by mouth daily. [facility] lisinopriL (PRINIVIL,Z ESTRIL) 5 MG tablet -15 00:00: 00 04-02 23:59 :00 No 5mg QD Take 1 tablet (5 mg total) by mouth daily. [facility] furosemide (LASIX) 20 MG tablet -15 00:00: 00 04-02 23:59 :00 No 20mg QD Take 1 tablet (20 mg total) by mouth daily. [facility] furosemide (LASIX) 20 MG tablet 04-03 00:00: 00 04-02 23:59 :00 No 20mg QD Take 1 tablet (20 mg total) by mouth daily. [facility] furosemide (LASIX) 20 MG tablet 04-03 00:00: 00 04-02 23:59 :00 No 20mg QD Take 1 tablet (20 mg total) by mouth daily. [facility] furosemide (LASIX) 20 MG tablet 0 15 00:00: 00 04-02 23:59 :00 No 20mg QD Take 1 tablet (20 mg total) by mouth daily. [facility] furosemide (LASIX) 20 MG tablet 04-03 00:00: 00 04-02 23:59 :00 No 20mg QD Take 1 tablet (20 mg total) by mouth daily. [facility] furosemide (LASIX) 20 MG tablet 15 00:00: 00 04-02 23:59 :00 No 20mg QD Take 1 tablet (20 mg total) by mouth daily. [facility] DULoxetine (CYMBALTA) 30 MG capsule - 00:00: 00 04-02 23:59 :00 No 30mg QD Take 1 capsule (30 mg total) by mouth daily. [facility] furosemide (LASIX) 20 MG tablet 2022-0 -15 00:00: 00 04-02 23:59 :00 No 20mg QD Take 1 tablet (20 mg total) by mouth daily. [facility] lisinopriL (PRINIVIL,Z ESTRIL) 5 MG tablet 0 -15 00:00: 00 04-02 23:59 :00 No 5mg QD Take 1 tablet (5 mg total) by mouth daily. [facility] furosemide (LASIX) 20 MG tablet 0 -15 00:00: 00 04-02 23:59 :00 No 20mg QD Take 1 tablet (20 mg total) by mouth daily. [facility] furosemide (LASIX) 20 MG tablet 0 -15 00:00: 00 04-02 23:59 :00 No 20mg QD Take 1 tablet (20 mg total) by mouth daily. [facility] furosemide (LASIX) 20 MG tablet 0 -15 00:00: 00 04-02 23:59 :00 No 20mg QD Take 1 tablet (20 mg total) by mouth daily. [facility] furosemide (LASIX) 20 MG tablet 0 15 00:00: 00 04-02 23:59 :00 No 20mg QD Take 1 tablet (20 mg total) by mouth daily. [facility] furosemide (LASIX) 20 MG tablet 0 -15 00:00: 00 04-02 23:59 :00 No 20mg QD Take 1 tablet (20 mg total) by mouth daily. [facility] furosemide (LASIX) 20 MG tablet 2022-0 -15 00:00: 00 04-02 23:59 :00 No 20mg QD Take 1 tablet (20 mg total) by mouth daily. [facility] furosemide (LASIX) 20 MG tablet 0 -15 00:00: 00 04-02 23:59 :00 No 20mg QD Take 1 tablet (20 mg total) by mouth daily. [facility] DULoxetine (CYMBALTA) 30 MG capsule 2022-0 9-15 00:00: 00 04-02 23:59 :00 No 30mg QD Take 1 capsule (30 mg total) by mouth daily. [facility] lisinopriL (PRINIVIL,Z ESTRIL) 5 MG tablet 2022-0 -15 00:00: 00 04-02 23:59 :00 No 5mg QD Take 1 tablet (5 mg total) by mouth daily. [facility] furosemide (LASIX) 20 MG tablet 2022-0 -15 00:00: 00 04-02 23:59 :00 No 20mg QD Take 1 tablet (20 mg total) by mouth daily. [facility] furosemide (LASIX) 20 MG tablet 0 -15 00:00: 00 04-02 23:59 :00 No 20mg QD Take 1 tablet (20 mg total) by mouth daily. [facility] furosemide (LASIX) 20 MG tablet 0 -15 00:00: 00 04-02 23:59 :00 No 20mg QD Take 1 tablet (20 mg total) by mouth daily. [facility] furosemide (LASIX) 20 MG tablet 0 -15 00:00: 00 04-02 23:59 :00 No 20mg QD Take 1 tablet (20 mg total) by mouth daily. [facility] furosemide (LASIX) 20 MG tablet 0 -15 00:00: 00 04-02 23:59 :00 No 20mg QD Take 1 tablet (20 mg total) by mouth daily. [facility] furosemide (LASIX) 20 MG tablet 2022-0 -15 00:00: 00 04-02 23:59 :00 No 20mg QD Take 1 tablet (20 mg total) by mouth daily. [facility] furosemide (LASIX) 20 MG tablet 2022-0 -15 00:00: 00 04-02 23:59 :00 No 20mg QD Take 1 tablet (20 mg total) by mouth daily. [facility] DULoxetine (CYMBALTA) 30 MG capsule 2022-0 9-15 00:00: 00 04-02 23:59 :00 No 30mg QD Take 1 capsule (30 mg total) by mouth daily. [facility] lisinopriL (PRINIVIL,Z ESTRIL) 5 MG tablet 2022-0 -15 00:00: 00 04-02 23:59 :00 No 5mg QD Take 1 tablet (5 mg total) by mouth daily. [facility] furosemide (LASIX) 20 MG tablet 2022-0 9-15 00:00: 00 04-02 23:59 :00 No 20mg QD Take 1 tablet (20 mg total) by mouth daily. [facility] furosemide (LASIX) 20 MG tablet 2022-0 -15 00:00: 00 04-02 23:59 :00 No 20mg QD Take 1 tablet (20 mg total) by mouth daily. [facility] DULoxetine (CYMBALTA) 30 MG capsule 2022-0 -15 00:00: 00 04-02 23:59 :00 No 30mg QD Take 1 capsule (30 mg total) by mouth daily. [facility] lisinopriL (PRINIVIL,Z ESTRIL) 5 MG tablet 2022-0 -15 00:00: 00 04-02 23:59 :00 No 5mg QD Take 1 tablet (5 mg total) by mouth daily. [facility] furosemide (LASIX) 20 MG tablet 0 -15 00:00: 00 04-02 23:59 :00 No 20mg QD Take 1 tablet (20 mg total) by mouth daily. [facility] DULoxetine (CYMBALTA) 30 MG capsule 2022-0 -15 00:00: 00 04-02 23:59 :00 No 30mg QD Take 1 capsule (30 mg total) by mouth daily. [facility] lisinopriL (PRINIVIL,Z ESTRIL) 5 MG tablet 2022-0 9-15 00:00: 00 04-02 23:59 :00 No 5mg QD Take 1 tablet (5 mg total) by mouth daily. [facility] furosemide (LASIX) 20 MG tablet 2022-0 9-15 00:00: 00 04-02 23:59 :00 No 20mg QD Take 1 tablet (20 mg total) by mouth daily. [facility] DULoxetine (CYMBALTA) 30 MG capsule 2022-0 -15 00:00: 00 04-02 23:59 :00 No 30mg QD Take 1 capsule (30 mg total) by mouth daily. [facility] lisinopriL (PRINIVIL,Z ESTRIL) 5 MG tablet 2022-0 9-15 00:00: 00 04-02 23:59 :00 No 5mg QD Take 1 tablet (5 mg total) by mouth daily. [facility] furosemide (LASIX) 20 MG tablet 0 -15 00:00: 00 04-02 23:59 :00 No 20mg QD Take 1 tablet (20 mg total) by mouth daily. [facility] DULoxetine (CYMBALTA) 30 MG capsule 04-03 00:00: 00 04-02 23:59 :00 No 30mg QD Take 1 capsule (30 mg total) by mouth daily. [facility] lisinopriL (PRINIVIL,Z ESTRIL) 5 MG tablet 0 15 00:00: 00 04-02 23:59 :00 No 5mg QD Take 1 tablet (5 mg total) by mouth daily. [facility] furosemide (LASIX) 20 MG tablet 0 15 00:00: 00 04-02 23:59 :00 No 20mg QD Take 1 tablet (20 mg total) by mouth daily. [facility] DULoxetine (CYMBALTA) 30 MG capsule -15 00:00: 00 04-02 23:59 :00 No 30mg QD Take 1 capsule (30 mg total) by mouth daily. [facility] lisinopriL (PRINIVIL,Z ESTRIL) 5 MG tablet 2022-0 -15 00:00: 00 04-02 23:59 :00 No 5mg QD Take 1 tablet (5 mg total) by mouth daily. [facility] furosemide (LASIX) 20 MG tablet 2022-0 9-15 00:00: 00 04-02 23:59 :00 No 20mg QD Take 1 tablet (20 mg total) by mouth daily. [facility] DULoxetine (CYMBALTA) 30 MG capsule 2022-0 -15 00:00: 00 04-02 23:59 :00 No 30mg QD Take 1 capsule (30 mg total) by mouth daily. [facility] furosemide (LASIX) 20 MG tablet 2022-0 9-15 00:00: 00 04-02 23:59 :00 No 20mg QD Take 1 tablet (20 mg total) by mouth daily. [facility] DULoxetine (CYMBALTA) 30 MG capsule 2022-0 -15 00:00: 00 04-02 23:59 :00 No 30mg QD Take 1 capsule (30 mg total) by mouth daily. [facility] furosemide (LASIX) 20 MG tablet 0 -15 00:00: 00 04-02 23:59 :00 No 20mg QD Take 1 tablet (20 mg total) by mouth daily. [facility] DULoxetine (CYMBALTA) 30 MG capsule 2022-0 -15 00:00: 00 04-02 23:59 :00 No 30mg QD Take 1 capsule (30 mg total) by mouth daily. [facility] furosemide (LASIX) 20 MG tablet 0 -15 00:00: 00 04-02 23:59 :00 No 20mg QD Take 1 tablet (20 mg total) by mouth daily. [facility] DULoxetine (CYMBALTA) 30 MG capsule 2022-0 -15 00:00: 00 04-02 23:59 :00 No 30mg QD Take 1 capsule (30 mg total) by mouth daily. [facility] furosemide (LASIX) 20 MG tablet 2022-0 -15 00:00: 00 04-02 23:59 :00 No 20mg QD Take 1 tablet (20 mg total) by mouth daily. [facility] furosemide (LASIX) 20 MG tablet 2022-0 9-15 00:00: 00 04-02 23:59 :00 No 20mg QD Take 1 tablet (20 mg total) by mouth daily. [facility] furosemide (LASIX) 20 MG tablet 2022-0 9-15 00:00: 00 09-07 00:00 :00 No 20mg QD Take 1 tablet (20 mg total) by mouth daily. [facility] furosemide (LASIX) 20 MG tablet 2022-0 9-15 00:00: 00 09-07 00:00 :00 No 20mg QD Take 1 tablet (20 mg total) by mouth daily. [facility] furosemide (LASIX) 20 MG tablet 0 -15 00:00: 00 09-07 00:00 :00 No 20mg QD Take 1 tablet (20 mg total) by mouth daily. [facility] furosemide (LASIX) 20 MG tablet 0 - 00:00: 00 09-07 00:00 :00 No 20mg QD Take 1 tablet (20 mg total) by mouth daily. [facility] furosemide (LASIX) 20 MG tablet - 00:00: 00 09-07 00:00 :00 No 20mg QD Take 1 tablet (20 mg total) by mouth daily. [facility] furosemide (LASIX) 20 MG tablet 2022-0 -15 00:00: 00 09-07 00:00 :00 No 20mg QD Take 1 tablet (20 mg total) by mouth daily. [facility] furosemide (LASIX) 20 MG tablet 2022-0 -15 00:00: 00 09-07 00:00 :00 No 20mg QD Take 1 tablet (20 mg total) by mouth daily. [facility] furosemide (LASIX) 20 MG tablet 2022-0 -15 00:00: 00 09-07 00:00 :00 No 20mg QD Take 1 tablet (20 mg total) by mouth daily. [facility] aspirin 81 MG EC tablet -15 00:00: 00 07-02 23:59 :00 No 81mg QD Take 1 tablet (81 mg total) by mouth daily for 90 days. [facility] divalproex (DEPAKOTE) 500 MG EC tablet - 00:00: 00 07-02 23:59 :00 No 500mg Q.5D Take 1 tablet (500 mg total) by mouth 2 (two) times daily for 90 days. [facility] gabapentin (NEURONTIN) 300 MG capsule 04-03 00:00: 00 07-02 23:59 :00 No 300mg Q.[id number] 3D Take 1 capsule (300 mg total) by mouth 3 (three) times daily for 90 days. [facility] aspirin 81 MG EC tablet 04-03 00:00: 00 07-02 23:59 :00 No 81mg QD Take 1 tablet (81 mg total) by mouth daily for 90 days. [facility] divalproex (DEPAKOTE) 500 MG EC tablet 04-03 00:00: 00 07-02 23:59 :00 No 500mg Q.5D Take 1 tablet (500 mg total) by mouth 2 (two) times daily for 90 days. [facility] gabapentin (NEURONTIN) 300 MG capsule 04-03 00:00: 00 07-02 23:59 :00 No 300mg Q.[id number] 3D Take 1 capsule (300 mg total) by mouth 3 (three) times daily for 90 days. [facility] aspirin 81 MG EC tablet 04-03 00:00: 00 07-02 23:59 :00 No 81mg QD Take 1 tablet (81 mg total) by mouth daily for 90 days. [facility] divalproex (DEPAKOTE) 500 MG EC tablet 04-03 00:00: 00 07-02 23:59 :00 No 500mg Q.5D Take 1 tablet (500 mg total) by mouth 2 (two) times daily for 90 days. [facility] gabapentin (NEURONTIN) 300 MG capsule 04-03 00:00: 00 07-02 23:59 :00 No 300mg Q.[id number] 3D Take 1 capsule (300 mg total) by mouth 3 (three) times daily for 90 days. [facility] aspirin 81 MG EC tablet 04-03 00:00: 00 07-02 23:59 :00 No 81mg QD Take 1 tablet (81 mg total) by mouth daily for 90 days. [facility] divalproex (DEPAKOTE) 500 MG EC tablet 04-03 00:00: 00 07-02 23:59 :00 No 500mg Q.5D Take 1 tablet (500 mg total) by mouth 2 (two) times daily for 90 days. [facility] gabapentin (NEURONTIN) 300 MG capsule 04-03 00:00: 00 07-02 23:59 :00 No 300mg Q.[id number] 3D Take 1 capsule (300 mg total) by mouth 3 (three) times daily for 90 days. [facility] aspirin 81 MG EC tablet 04-03 00:00: 00 07-02 23:59 :00 No 81mg QD Take 1 tablet (81 mg total) by mouth daily for 90 days. [facility] divalproex (DEPAKOTE) 500 MG EC tablet 04-03 00:00: 00 07-02 23:59 :00 No 500mg Q.5D Take 1 tablet (500 mg total) by mouth 2 (two) times daily for 90 days. [facility] gabapentin (NEURONTIN) 300 MG capsule 04-03 00:00: 00 07-02 23:59 :00 No 300mg Q.[id number] 3D Take 1 capsule (300 mg total) by mouth 3 (three) times daily for 90 days. [facility] aspirin 81 MG EC tablet 04-03 00:00: 00 07-02 23:59 :00 No 81mg QD Take 1 tablet (81 mg total) by mouth daily for 90 days. [facility] divalproex (DEPAKOTE) 500 MG EC tablet 04-03 00:00: 00 07-02 23:59 :00 No 500mg Q.5D Take 1 tablet (500 mg total) by mouth 2 (two) times daily for 90 days. [facility] gabapentin (NEURONTIN) 300 MG capsule 15 00:00: 00 07-02 23:59 :00 No 300mg Q.[id number] 3D Take 1 capsule (300 mg total) by mouth 3 (three) times daily for 90 days. [facility] aspirin 81 MG EC tablet 04-03 00:00: 00 07-02 23:59 :00 No 81mg QD Take 1 tablet (81 mg total) by mouth daily for 90 days. [facility] divalproex (DEPAKOTE) 500 MG EC tablet 04-03 00:00: 00 07-02 23:59 :00 No 500mg Q.5D Take 1 tablet (500 mg total) by mouth 2 (two) times daily for 90 days. [facility] [facility] 300 MG capsule 04-03 00:00: 00 07-02 23:59 :00 No 300mg Q.[id number] 3D Take 1 capsule (300 mg total) by mouth 3 (three) times daily for 90 days. [facility] aspirin 81 MG EC tablet 04-03 00:00: 00 07-02 23:59 :00 No 81mg QD Take 1 tablet (81 mg total) by mouth daily for 90 days. [facility] divalproex (DEPAKOTE) 500 MG EC tablet 04-03 00:00: 00 07-02 23:59 :00 No 500mg Q.5D Take 1 tablet (500 mg total) by mouth 2 (two) times daily for 90 days. [facility] gabapentin (NEURONTIN) 300 MG capsule 04-03 00:00: 00 07-02 23:59 :00 No 300mg Q.[id number] 3D Take 1 capsule (300 mg total) by mouth 3 (three) times daily for 90 days. [facility] aspirin 81 MG EC tablet 04-03 00:00: 00 07-02 23:59 :00 No 81mg QD Take 1 tablet (81 mg total) by mouth daily for 90 days. [facility] divalproex (DEPAKOTE) 500 MG EC tablet 04-03 00:00: 00 07-02 23:59 :00 No 500mg Q.5D Take 1 tablet (500 mg total) by mouth 2 (two) times daily for 90 days. [facility] gabapentin (NEURONTIN) 300 MG capsule 04-03 00:00: 00 07-02 23:59 :00 No 300mg Q.[id number] 3D Take 1 capsule (300 mg total) by mouth 3 (three) times daily for 90 days. [facility] aspirin 81 MG EC tablet 04-03 00:00: 00 07-02 23:59 :00 No 81mg QD Take 1 tablet (81 mg total) by mouth daily for 90 days. [facility] divalproex (DEPAKOTE) 500 MG EC tablet 04-03 00:00: 00 07-02 23:59 :00 No 500mg Q.5D Take 1 tablet (500 mg total) by mouth 2 (two) times daily for 90 days. [facility] gabapentin (NEURONTIN) 300 MG capsule 04-03 00:00: 00 07-02 23:59 :00 No 300mg Q.[id number] 3D Take 1 capsule (300 mg total) by mouth 3 (three) times daily for 90 days. [facility] aspirin 81 MG EC tablet 04-03 00:00: 00 07-02 23:59 :00 No 81mg QD Take 1 tablet (81 mg total) by mouth daily for 90 days. [facility] divalproex (DEPAKOTE) 500 MG EC tablet 04-03 00:00: 00 07-02 23:59 :00 No 500mg Q.5D Take 1 tablet (500 mg total) by mouth 2 (two) times daily for 90 days. [facility] gabapentin (NEURONTIN) 300 MG capsule 04-03 00:00: 00 07-02 23:59 :00 No 300mg Q.[id number] 3D Take 1 capsule (300 mg total) by mouth 3 (three) times daily for 90 days. [facility] aspirin 81 MG EC tablet 04-03 00:00: 00 07-02 23:59 :00 No 81mg QD Take 1 tablet (81 mg total) by mouth daily for 90 days. [facility] divalproex (DEPAKOTE) 500 MG EC tablet 04-03 00:00: 00 07-02 23:59 :00 No 500mg Q.5D Take 1 tablet (500 mg total) by mouth 2 (two) times daily for 90 days. [facility] gabapentin (NEURONTIN) 300 MG capsule 04-03 00:00: 00 07-02 23:59 :00 No 300mg Q.[id number] 3D Take 1 capsule (300 mg total) by mouth 3 (three) times daily for 90 days. [facility] aspirin 81 MG EC tablet 04-03 00:00: 00 07-02 23:59 :00 No 81mg QD Take 1 tablet (81 mg total) by mouth daily for 90 days. [facility] divalproex (DEPAKOTE) 500 MG EC tablet 04-03 00:00: 00 07-02 23:59 :00 No 500mg Q.5D Take 1 tablet (500 mg total) by mouth 2 (two) times daily for 90 days. [facility] gabapentin (NEURONTIN) 300 MG capsule 04-03 00:00: 00 07-02 23:59 :00 No 300mg Q.[id number] 3D Take 1 capsule (300 mg total) by mouth 3 (three) times daily for 90 days. [facility] aspirin 81 MG EC tablet 04-03 00:00: 00 07-02 23:59 :00 No 81mg QD Take 1 tablet (81 mg total) by mouth daily for 90 days. [facility] divalproex (DEPAKOTE) 500 MG EC tablet 04-03 00:00: 00 07-02 23:59 :00 No 500mg Q.5D Take 1 tablet (500 mg total) by mouth 2 (two) times daily for 90 days. [facility] gabapentin (NEURONTIN) 300 MG capsule 04-03 00:00: 00 07-02 23:59 :00 No 300mg Q.[id number] 3D Take 1 capsule (300 mg total) by mouth 3 (three) times daily for 90 days. [facility] aspirin 81 MG EC tablet 04-03 00:00: 00 07-02 23:59 :00 No 81mg QD Take 1 tablet (81 mg total) by mouth daily for 90 days. [facility] divalproex (DEPAKOTE) 500 MG EC tablet 04-03 00:00: 00 07-02 23:59 :00 No 500mg Q.5D Take 1 tablet (500 mg total) by mouth 2 (two) times daily for 90 days. [facility] gabapentin (NEURONTIN) 300 MG capsule 04-03 00:00: 00 07-02 23:59 :00 No 300mg Q.[id number] 3D Take 1 capsule (300 mg total) by mouth 3 (three) times daily for 90 days. [facility] aspirin 81 MG EC tablet 04-03 00:00: 00 07-02 23:59 :00 No 81mg QD Take 1 tablet (81 mg total) by mouth daily for 90 days. [facility] divalproex (DEPAKOTE) 500 MG EC tablet 04-03 00:00: 00 07-02 23:59 :00 No 500mg Q.5D Take 1 tablet (500 mg total) by mouth 2 (two) times daily for 90 days. [facility] gabapentin (NEURONTIN) 300 MG capsule 04-03 00:00: 00 07-02 23:59 :00 No 300mg Q.[id number] 3D Take 1 capsule (300 mg total) by mouth 3 (three) times daily for 90 days. [facility] aspirin 81 MG EC tablet 15 00:00: 00 07-02 23:59 :00 No 81mg QD Take 1 tablet (81 mg total) by mouth daily for 90 days. [facility] divalproex (DEPAKOTE) 500 MG EC tablet 15 00:00: 00 07-02 23:59 :00 No 500mg Q.5D Take 1 tablet (500 mg total) by mouth 2 (two) times daily for 90 days. [facility] gabapentin (NEURONTIN) 300 MG capsule 15 00:00: 00 07-02 23:59 :00 No 300mg Q.[id number] 3D Take 1 capsule (300 mg total) by mouth 3 (three) times daily for 90 days. [facility] aspirin 81 MG EC tablet 04-03 00:00: 00 07-02 23:59 :00 No 81mg QD Take 1 tablet (81 mg total) by mouth daily for 90 days. [facility] divalproex (DEPAKOTE) 500 MG EC tablet 04-03 00:00: 00 07-02 23:59 :00 No 500mg Q.5D Take 1 tablet (500 mg total) by mouth 2 (two) times daily for 90 days. [facility] gabapentin (NEURONTIN) 300 MG capsule 04-03 00:00: 00 07-02 23:59 :00 No 300mg Q.[id number] 3D Take 1 capsule (300 mg total) by mouth 3 (three) times daily for 90 days. [facility] aspirin 81 MG EC tablet 15 00:00: 00 07-02 23:59 :00 No 81mg QD Take 1 tablet (81 mg total) by mouth daily for 90 days. [facility] divalproex (DEPAKOTE) 500 MG EC tablet 15 00:00: 00 07-02 23:59 :00 No 500mg Q.5D Take 1 tablet (500 mg total) by mouth 2 (two) times daily for 90 days. [facility] gabapentin (NEURONTIN) 300 MG capsule 04-03 00:00: 00 07-02 23:59 :00 No 300mg Q.[id number] 3D Take 1 capsule (300 mg total) by mouth 3 (three) times daily for 90 days. [facility] aspirin 81 MG EC tablet 04-03 00:00: 00 07-02 23:59 :00 No 81mg QD Take 1 tablet (81 mg total) by mouth daily for 90 days. [facility] divalproex (DEPAKOTE) 500 MG EC tablet 04-03 00:00: 00 07-02 23:59 :00 No 500mg Q.5D Take 1 tablet (500 mg total) by mouth 2 (two) times daily for 90 days. [facility] gabapentin (NEURONTIN) 300 MG capsule 04-03 00:00: 00 07-02 23:59 :00 No 300mg Q.[id number] 3D Take 1 capsule (300 mg total) by mouth 3 (three) times daily for 90 days. [facility] aspirin 81 MG EC tablet 04-03 00:00: 00 07-02 23:59 :00 No 81mg QD Take 1 tablet (81 mg total) by mouth daily for 90 days. [facility] divalproex (DEPAKOTE) 500 MG EC tablet 04-03 00:00: 00 07-02 23:59 :00 No 500mg Q.5D Take 1 tablet (500 mg total) by mouth 2 (two) times daily for 90 days. [facility] gabapentin (NEURONTIN) 300 MG capsule 04-03 00:00: 00 07-02 23:59 :00 No 300mg Q.[id number] 3D Take 1 capsule (300 mg total) by mouth 3 (three) times daily for 90 days. [facility] aspirin 81 MG EC tablet 04-03 00:00: 00 07-02 23:59 :00 No 81mg QD Take 1 tablet (81 mg total) by mouth daily for 90 days. [facility] divalproex (DEPAKOTE) 500 MG EC tablet 04-03 00:00: 00 07-02 23:59 :00 No 500mg Q.5D Take 1 tablet (500 mg total) by mouth 2 (two) times daily for 90 days. [facility] gabapentin (NEURONTIN) 300 MG capsule 04-03 00:00: 00 07-02 23:59 :00 No 300mg Q.[id number] 3D Take 1 capsule (300 mg total) by mouth 3 (three) times daily for 90 days. [facility] aspirin 81 MG EC tablet 04-03 00:00: 00 07-02 23:59 :00 No 81mg QD Take 1 tablet (81 mg total) by mouth daily for 90 days. [facility] aspirin 81 MG EC tablet 04-03 00:00: 00 07-02 23:59 :00 No 81mg QD Take 1 tablet (81 mg total) by mouth daily for 90 days. [facility] divalproex (DEPAKOTE) 500 MG EC tablet 04-03 00:00: 00 07-02 23:59 :00 No 500mg Q.5D Take 1 tablet (500 mg total) by mouth 2 (two) times daily for 90 days. [facility] gabapentin (NEURONTIN) 300 MG capsule 04-03 00:00: 00 07-02 23:59 :00 No 300mg Q.[id number] 3D Take 1 capsule (300 mg total) by mouth 3 (three) times daily for 90 days. [facility] divalproex (DEPAKOTE) 500 MG EC tablet 04-03 00:00: 00 07-02 23:59 :00 No 500mg Q.5D Take 1 tablet (500 mg total) by mouth 2 (two) times daily for 90 days. [facility] gabapentin (NEURONTIN) 300 MG capsule 04-03 00:00: 00 07-02 23:59 :00 No 300mg Q.[id number] 3D Take 1 capsule (300 mg total) by mouth 3 (three) times daily for 90 days. [facility] aspirin 81 MG EC tablet 04-03 00:00: 00 07-02 23:59 :00 No 81mg QD Take 1 tablet (81 mg total) by mouth daily for 90 days. [facility] divalproex (DEPAKOTE) 500 MG EC tablet 04-03 00:00: 00 07-02 23:59 :00 No 500mg Q.5D Take 1 tablet (500 mg total) by mouth 2 (two) times daily for 90 days. [facility] gabapentin (NEURONTIN) 300 MG capsule 04-03 00:00: 00 07-02 23:59 :00 No 300mg Q.[id number] 3D Take 1 capsule (300 mg total) by mouth 3 (three) times daily for 90 days. [facility] aspirin 81 MG EC tablet 04-03 00:00: 00 07-02 23:59 :00 No 81mg QD Take 1 tablet (81 mg total) by mouth daily for 90 days. [facility] divalproex (DEPAKOTE) 500 MG EC tablet 04-03 00:00: 00 07-02 23:59 :00 No 500mg Q.5D Take 1 tablet (500 mg total) by mouth 2 (two) times daily for 90 days. [facility] gabapentin (NEURONTIN) 300 MG capsule 04-03 00:00: 00 07-02 23:59 :00 No 300mg Q.[id number] 3D Take 1 capsule (300 mg total) by mouth 3 (three) times daily for 90 days. [facility] aspirin 81 MG EC tablet 04-03 00:00: 00 07-02 23:59 :00 No 81mg QD Take 1 tablet (81 mg total) by mouth daily for 90 days. [facility] divalproex (DEPAKOTE) 500 MG EC tablet 15 00:00: 00 07-02 23:59 :00 No 500mg Q.5D Take 1 tablet (500 mg total) by mouth 2 (two) times daily for 90 days. [facility] gabapentin (NEURONTIN) 300 MG capsule 04-03 00:00: 00 07-02 23:59 :00 No 300mg Q.[id number] 3D Take 1 capsule (300 mg total) by mouth 3 (three) times daily for 90 days. [facility] aspirin 81 MG EC tablet 04-03 00:00: 00 07-02 23:59 :00 No 81mg QD Take 1 tablet (81 mg total) by mouth daily for 90 days. [facility] divalproex (DEPAKOTE) 500 MG EC tablet 04-03 00:00: 00 07-02 23:59 :00 No 500mg Q.5D Take 1 tablet (500 mg total) by mouth 2 (two) times daily for 90 days. [facility] gabapentin (NEURONTIN) 300 MG capsule 04-03 00:00: 00 07-02 23:59 :00 No 300mg Q.[id number] 3D Take 1 capsule (300 mg total) by mouth 3 (three) times daily for 90 days. [facility] aspirin 81 MG EC tablet 04-03 00:00: 00 07-02 23:59 :00 No 81mg QD Take 1 tablet (81 mg total) by mouth daily for 90 days. [facility] divalproex (DEPAKOTE) 500 MG EC tablet 04-03 00:00: 00 07-02 23:59 :00 No 500mg Q.5D Take 1 tablet (500 mg total) by mouth 2 (two) times daily for 90 days. [facility] gabapentin (NEURONTIN) 300 MG capsule 15 00:00: 00 07-02 23:59 :00 No 300mg Q.[id number] 3D Take 1 capsule (300 mg total) by mouth 3 (three) times daily for 90 days. [facility] aspirin 81 MG EC tablet 04-03 00:00: 00 07-02 23:59 :00 No 81mg QD Take 1 tablet (81 mg total) by mouth daily for 90 days. [facility] divalproex (DEPAKOTE) 500 MG EC tablet 04-03 00:00: 00 07-02 23:59 :00 No 500mg Q.5D Take 1 tablet (500 mg total) by mouth 2 (two) times daily for 90 days. [facility] gabapentin (NEURONTIN) 300 MG capsule 04-03 00:00: 00 07-02 23:59 :00 No 300mg Q.[id number] 3D Take 1 capsule (300 mg total) by mouth 3 (three) times daily for 90 days. [facility] aspirin 81 MG EC tablet 04-03 00:00: 00 07-02 23:59 :00 No 81mg QD Take 1 tablet (81 mg total) by mouth daily for 90 days. [facility] divalproex (DEPAKOTE) 500 MG EC tablet 04-03 00:00: 00 07-02 23:59 :00 No 500mg Q.5D Take 1 tablet (500 mg total) by mouth 2 (two) times daily for 90 days. [facility] gabapentin (NEURONTIN) 300 MG capsule 04-03 00:00: 00 07-02 23:59 :00 No 300mg Q.[id number] 3D Take 1 capsule (300 mg total) by mouth 3 (three) times daily for 90 days. [facility] aspirin 81 MG EC tablet 04-03 00:00: 00 07-02 23:59 :00 No 81mg QD Take 1 tablet (81 mg total) by mouth daily for 90 days. [facility] divalproex (DEPAKOTE) 500 MG EC tablet 04-03 00:00: 00 07-02 23:59 :00 No 500mg Q.5D Take 1 tablet (500 mg total) by mouth 2 (two) times daily for 90 days. [facility] gabapentin (NEURONTIN) 300 MG capsule 04-03 00:00: 00 07-02 23:59 :00 No 300mg Q.[id number] 3D Take 1 capsule (300 mg total) by mouth 3 (three) times daily for 90 days. [facility] aspirin 81 MG EC tablet 04-03 00:00: 00 07-02 23:59 :00 No 81mg QD Take 1 tablet (81 mg total) by mouth daily for 90 days. [facility] divalproex (DEPAKOTE) 500 MG EC tablet 04-03 00:00: 00 07-02 23:59 :00 No 500mg Q.5D Take 1 tablet (500 mg total) by mouth 2 (two) times daily for 90 days. [facility] gabapentin (NEURONTIN) 300 MG capsule 04-03 00:00: 00 07-02 23:59 :00 No 300mg Q.[id number] 3D Take 1 capsule (300 mg total) by mouth 3 (three) times daily for 90 days. [facility] aspirin 81 MG EC tablet 04-03 00:00: 00 07-02 23:59 :00 No 81mg QD Take 1 tablet (81 mg total) by mouth daily for 90 days. [facility] divalproex (DEPAKOTE) 500 MG EC tablet 04-03 00:00: 00 07-02 23:59 :00 No 500mg Q.5D Take 1 tablet (500 mg total) by mouth 2 (two) times daily for 90 days. [facility] gabapentin (NEURONTIN) 300 MG capsule 04-03 00:00: 00 07-02 23:59 :00 No 300mg Q.[id number] 3D Take 1 capsule (300 mg total) by mouth 3 (three) times daily for 90 days. [facility] aspirin 81 MG EC tablet 04-03 00:00: 00 07-02 23:59 :00 No 81mg QD Take 1 tablet (81 mg total) by mouth daily for 90 days. [facility] divalproex (DEPAKOTE) 500 MG EC tablet 04-03 00:00: 00 07-02 23:59 :00 No 500mg Q.5D Take 1 tablet (500 mg total) by mouth 2 (two) times daily for 90 days. [facility] gabapentin (NEURONTIN) 300 MG capsule 04-03 00:00: 00 07-02 23:59 :00 No 300mg Q.[id number] 3D Take 1 capsule (300 mg total) by mouth 3 (three) times daily for 90 days. [facility] aspirin 81 MG EC tablet 04-03 00:00: 00 07-02 23:59 :00 No 81mg QD Take 1 tablet (81 mg total) by mouth daily for 90 days. [facility] divalproex (DEPAKOTE) 500 MG EC tablet 04-03 00:00: 00 07-02 23:59 :00 No 500mg Q.5D Take 1 tablet (500 mg total) by mouth 2 (two) times daily for 90 days. [facility] gabapentin (NEURONTIN) 300 MG capsule 04-03 00:00: 00 07-02 23:59 :00 No 300mg Q.[id number] 3D Take 1 capsule (300 mg total) by mouth 3 (three) times daily for 90 days. [facility] aspirin 81 MG EC tablet 04-03 00:00: 00 07-02 23:59 :00 No 81mg QD Take 1 tablet (81 mg total) by mouth daily for 90 days. [facility] divalproex (DEPAKOTE) 500 MG EC tablet 04-03 00:00: 00 07-02 23:59 :00 No 500mg Q.5D Take 1 tablet (500 mg total) by mouth 2 (two) times daily for 90 days. [facility] gabapentin (NEURONTIN) 300 MG capsule 04-03 00:00: 00 07-02 23:59 :00 No 300mg Q.[id number] 3D Take 1 capsule (300 mg total) by mouth 3 (three) times daily for 90 days. [facility] aspirin 81 MG EC tablet 04-03 00:00: 00 07-02 23:59 :00 No 81mg QD Take 1 tablet (81 mg total) by mouth daily for 90 days. [facility] divalproex (DEPAKOTE) 500 MG EC tablet 04-03 00:00: 00 07-02 23:59 :00 No 500mg Q.5D Take 1 tablet (500 mg total) by mouth 2 (two) times daily for 90 days. [facility] gabapentin (NEURONTIN) 300 MG capsule 04-03 00:00: 00 07-02 23:59 :00 No 300mg Q.[id number] 3D Take 1 capsule (300 mg total) by mouth 3 (three) times daily for 90 days. [facility] aspirin 81 MG EC tablet 04-03 00:00: 00 07-02 23:59 :00 No 81mg QD Take 1 tablet (81 mg total) by mouth daily for 90 days. [facility] divalproex (DEPAKOTE) 500 MG EC tablet 04-03 00:00: 00 07-02 23:59 :00 No 500mg Q.5D Take 1 tablet (500 mg total) by mouth 2 (two) times daily for 90 days. [facility] gabapentin (NEURONTIN) 300 MG capsule 04-03 00:00: 00 07-02 23:59 :00 No 300mg Q.[id number] 3D Take 1 capsule (300 mg total) by mouth 3 (three) times daily for 90 days. [facility] aspirin 81 MG EC tablet 04-03 00:00: 00 07-02 23:59 :00 No 81mg QD Take 1 tablet (81 mg total) by mouth daily for 90 days. [facility] divalproex (DEPAKOTE) 500 MG EC tablet 04-03 00:00: 00 07-02 23:59 :00 No 500mg Q.5D Take 1 tablet (500 mg total) by mouth 2 (two) times daily for 90 days. [facility] gabapentin (NEURONTIN) 300 MG capsule 04-03 00:00: 00 07-02 23:59 :00 No 300mg Q.[id number] 3D Take 1 capsule (300 mg total) by mouth 3 (three) times daily for 90 days. [facility] aspirin 81 MG EC tablet 04-03 00:00: 00 07-02 23:59 :00 No 81mg QD Take 1 tablet (81 mg total) by mouth daily for 90 days. [facility] divalproex (DEPAKOTE) 500 MG EC tablet 04-03 00:00: 00 07-02 23:59 :00 No 500mg Q.5D Take 1 tablet (500 mg total) by mouth 2 (two) times daily for 90 days. [facility] gabapentin (NEURONTIN) 300 MG capsule 04-03 00:00: 00 07-02 23:59 :00 No 300mg Q.[id number] 3D Take 1 capsule (300 mg total) by mouth 3 (three) times daily for 90 days. [facility] aspirin 81 MG EC tablet 04-03 00:00: 00 07-02 23:59 :00 No 81mg QD Take 1 tablet (81 mg total) by mouth daily for 90 days. [facility] divalproex (DEPAKOTE) 500 MG EC tablet 04-03 00:00: 00 07-02 23:59 :00 No 500mg Q.5D Take 1 tablet (500 mg total) by mouth 2 (two) times daily for 90 days. [facility] gabapentin (NEURONTIN) 300 MG capsule 15 00:00: 00 07-02 23:59 :00 No 300mg Q.[id number] 3D Take 1 capsule (300 mg total) by mouth 3 (three) times daily for 90 days. [facility] aspirin 81 MG EC tablet 04-03 00:00: 00 07-02 23:59 :00 No 81mg QD Take 1 tablet (81 mg total) by mouth daily for 90 days. [facility] divalproex (DEPAKOTE) 500 MG EC tablet 04-03 00:00: 00 07-02 23:59 :00 No 500mg Q.5D Take 1 tablet (500 mg total) by mouth 2 (two) times daily for 90 days. [facility] gabapentin (NEURONTIN) 300 MG capsule 04-03 00:00: 00 07-02 23:59 :00 No 300mg Q.[id number] 3D Take 1 capsule (300 mg total) by mouth 3 (three) times daily for 90 days. [facility] aspirin 81 MG EC tablet 04-03 00:00: 00 07-02 23:59 :00 No 81mg QD Take 1 tablet (81 mg total) by mouth daily for 90 days. [facility] divalproex (DEPAKOTE) 500 MG EC tablet 04-03 00:00: 00 07-02 23:59 :00 No 500mg Q.5D Take 1 tablet (500 mg total) by mouth 2 (two) times daily for 90 days. [facility] gabapentin (NEURONTIN) 300 MG capsule 04-03 00:00: 00 07-02 23:59 :00 No 300mg Q.[id number] 3D Take 1 capsule (300 mg total) by mouth 3 (three) times daily for 90 days. [facility] DULoxetine (CYMBALTA) 30 MG capsule 04-03 00:00: 00 06-16 00:00 :00 No 30mg QD Take 1 capsule (30 mg total) by mouth daily. [facility] DULoxetine (CYMBALTA) 30 MG capsule 04-03 00:00: 00 06-16 00:00 :00 No 30mg QD Take 1 capsule (30 mg total) by mouth daily. [facility] DULoxetine (CYMBALTA) 30 MG capsule 2022-0 9-15 00:00: 00 06-16 00:00 :00 No 30mg QD Take 1 capsule (30 mg total) by mouth daily. [facility] DULoxetine (CYMBALTA) 30 MG capsule 2022-0 9-15 00:00: 00 06-16 00:00 :00 No 30mg QD Take 1 capsule (30 mg total) by mouth daily. [facility] DULoxetine (CYMBALTA) 30 MG capsule 2022-0 9-15 00:00: 00 06-16 00:00 :00 No 30mg QD Take 1 capsule (30 mg total) by mouth daily. [facility] DULoxetine (CYMBALTA) 30 MG capsule 2022-0 9-15 00:00: 00 06-16 00:00 :00 No 30mg QD Take 1 capsule (30 mg total) by mouth daily. [facility] DULoxetine (CYMBALTA) 30 MG capsule 2022-0 9-15 00:00: 00 06-16 00:00 :00 No 30mg QD Take 1 capsule (30 mg total) by mouth daily. [facility] DULoxetine (CYMBALTA) 30 MG capsule 2022-0 9-15 00:00: 00 06-16 00:00 :00 No 30mg QD Take 1 capsule (30 mg total) by mouth daily. [facility] DULoxetine (CYMBALTA) 30 MG capsule 2022-0 9-15 00:00: 00 06-16 00:00 :00 No 30mg QD Take 1 capsule (30 mg total) by mouth daily. [facility] DULoxetine (CYMBALTA) 30 MG capsule 2022-0 9-15 00:00: 00 06-16 00:00 :00 No 30mg QD Take 1 capsule (30 mg total) by mouth daily. [facility] DULoxetine (CYMBALTA) 30 MG capsule 2022-0 9-15 00:00: 00 06-16 00:00 :00 No 30mg QD Take 1 capsule (30 mg total) by mouth daily. [facility] DULoxetine (CYMBALTA) 30 MG capsule 2022-0 9-15 00:00: 00 06-16 00:00 :00 No 30mg QD Take 1 capsule (30 mg total) by mouth daily. [facility] DULoxetine (CYMBALTA) 30 MG capsule 2022-0 9-15 00:00: 00 06-16 00:00 :00 No 30mg QD Take 1 capsule (30 mg total) by mouth daily. [facility] DULoxetine (CYMBALTA) 30 MG capsule 2022-0 9-15 00:00: 00 06-16 00:00 :00 No 30mg QD Take 1 capsule (30 mg total) by mouth daily. [facility] DULoxetine (CYMBALTA) 30 MG capsule 2022-0 9-15 00:00: 00 06-16 00:00 :00 No 30mg QD Take 1 capsule (30 mg total) by mouth daily. [facility] DULoxetine (CYMBALTA) 30 MG capsule 2022-0 9-15 00:00: 00 06-16 00:00 :00 No 30mg QD Take 1 capsule (30 mg total) by mouth daily. [facility] DULoxetine (CYMBALTA) 30 MG capsule 2022-0 9-15 00:00: 00 06-16 00:00 :00 No 30mg QD Take 1 capsule (30 mg total) by mouth daily. [facility] DULoxetine (CYMBALTA) 30 MG capsule 2022-0 9-15 00:00: 00 06-16 00:00 :00 No 30mg QD Take 1 capsule (30 mg total) by mouth daily. [facility] DULoxetine (CYMBALTA) 30 MG capsule 2022-0 9-15 00:00: 00 06-16 00:00 :00 No 30mg QD Take 1 capsule (30 mg total) by mouth daily. [facility] DULoxetine (CYMBALTA) 30 MG capsule 2022-0 9-15 00:00: 00 06-16 00:00 :00 No 30mg QD Take 1 capsule (30 mg total) by mouth daily. [facility] DULoxetine (CYMBALTA) 30 MG capsule 2022-0 9-15 00:00: 00 06-16 00:00 :00 No 30mg QD Take 1 capsule (30 mg total) by mouth daily. [facility] DULoxetine (CYMBALTA) 30 MG capsule 2022-0 9-15 00:00: 00 06-16 00:00 :00 No 30mg QD Take 1 capsule (30 mg total) by mouth daily. [facility] DULoxetine (CYMBALTA) 30 MG capsule 2022-0 9-15 00:00: 00 06-16 00:00 :00 No 30mg QD Take 1 capsule (30 mg total) by mouth daily. [facility] DULoxetine (CYMBALTA) 30 MG capsule 2022-0 9-15 00:00: 00 06-16 00:00 :00 No 30mg QD Take 1 capsule (30 mg total) by mouth daily. [facility] DULoxetine (CYMBALTA) 30 MG capsule 2022-0 9-15 00:00: 00 06-16 00:00 :00 No 30mg QD Take 1 capsule (30 mg total) by mouth daily. [facility] DULoxetine (CYMBALTA) 30 MG capsule 2022-0 9-15 00:00: 00 06-16 00:00 :00 No 30mg QD Take 1 capsule (30 mg total) by mouth daily. [facility] DULoxetine (CYMBALTA) 30 MG capsule 2022-0 9-15 00:00: 00 06-16 00:00 :00 No 30mg QD Take 1 capsule (30 mg total) by mouth daily. [facility] DULoxetine (CYMBALTA) 30 MG capsule 2022-0 9-15 00:00: 00 06-16 00:00 :00 No 30mg QD Take 1 capsule (30 mg total) by mouth daily. [facility] DULoxetine (CYMBALTA) 30 MG capsule 2022-0 9-15 00:00: 00 06-16 00:00 :00 No 30mg QD Take 1 capsule (30 mg total) by mouth daily. [facility] DULoxetine (CYMBALTA) 30 MG capsule 04-03 00:00: 00 06-16 00:00 :00 No 30mg QD Take 1 capsule (30 mg total) by mouth daily. [facility] DULoxetine (CYMBALTA) 30 MG capsule 04-03 00:00: 00 06-16 00:00 :00 No 30mg QD Take 1 capsule (30 mg total) by mouth daily. [facility] lisinopriL (PRINIVIL,Z ESTRIL) 5 MG tablet 04-03 00:00: 00 05-28 00:00 :00 No 5mg QD Take 1 tablet (5 mg total) by mouth daily. [facility] lisinopriL (PRINIVIL,Z ESTRIL) 5 MG tablet 04-03 00:00: 00 05-28 00:00 :00 No 5mg QD Take 1 tablet (5 mg total) by mouth daily. [facility] lisinopriL (PRINIVIL,Z ESTRIL) 5 MG tablet 04-03 00:00: 00 05-28 00:00 :00 No 5mg QD Take 1 tablet (5 mg total) by mouth daily. [facility] lisinopriL (PRINIVIL,Z ESTRIL) 5 MG tablet 04-03 00:00: 00 05-28 00:00 :00 No 5mg QD Take 1 tablet (5 mg total) by mouth daily. [facility] lisinopriL (PRINIVIL,Z ESTRIL) 5 MG tablet 04-03 00:00: 00 05-28 00:00 :00 No 5mg QD Take 1 tablet (5 mg total) by mouth daily. [facility] lisinopriL (PRINIVIL,Z ESTRIL) 5 MG tablet 04-03 00:00: 00 05-28 00:00 :00 No 5mg QD Take 1 tablet (5 mg total) by mouth daily. [facility] lisinopriL (PRINIVIL,Z ESTRIL) 5 MG tablet 2022-0 9-15 00:00: 00 05-28 00:00 :00 No 5mg QD Take 1 tablet (5 mg total) by mouth daily. [facility] lisinopriL (PRINIVIL,Z ESTRIL) 5 MG tablet 2022-0 9-15 00:00: 00 05-28 00:00 :00 No 5mg QD Take 1 tablet (5 mg total) by mouth daily. [facility] lisinopriL (PRINIVIL,Z ESTRIL) 5 MG tablet 2022-0 9-15 00:00: 00 05-28 00:00 :00 No 5mg QD Take 1 tablet (5 mg total) by mouth daily. [facility] lisinopriL (PRINIVIL,Z ESTRIL) 5 MG tablet 2022-0 9-15 00:00: 00 05-28 00:00 :00 No 5mg QD Take 1 tablet (5 mg total) by mouth daily. [facility] lisinopriL (PRINIVIL,Z ESTRIL) 5 MG tablet 2022-0 9-15 00:00: 00 05-28 00:00 :00 No 5mg QD Take 1 tablet (5 mg total) by mouth daily. [facility] lisinopriL (PRINIVIL,Z ESTRIL) 5 MG tablet 2022-0 9-15 00:00: 00 05-28 00:00 :00 No 5mg QD Take 1 tablet (5 mg total) by mouth daily. [facility] lisinopriL (PRINIVIL,Z ESTRIL) 5 MG tablet 2022-0 9-15 00:00: 00 05-28 00:00 :00 No 5mg QD Take 1 tablet (5 mg total) by mouth daily. [facility] lisinopriL (PRINIVIL,Z ESTRIL) 5 MG tablet 2022-0 9-15 00:00: 00 05-28 00:00 :00 No 5mg QD Take 1 tablet (5 mg total) by mouth daily. [facility] lisinopriL (PRINIVIL,Z ESTRIL) 5 MG tablet 2022-0 9-15 00:00: 00 05-28 00:00 :00 No 5mg QD Take 1 tablet (5 mg total) by mouth daily. [facility] lisinopriL (PRINIVIL,Z ESTRIL) 5 MG tablet 2022-0 9-15 00:00: 00 05-28 00:00 :00 No 5mg QD Take 1 tablet (5 mg total) by mouth daily. [facility] lisinopriL (PRINIVIL,Z ESTRIL) 5 MG tablet 2022-0 9-15 00:00: 00 05-28 00:00 :00 No 5mg QD Take 1 tablet (5 mg total) by mouth daily. [facility] lisinopriL (PRINIVIL,Z ESTRIL) 5 MG tablet 2022-0 9-15 00:00: 00 05-28 00:00 :00 No 5mg QD Take 1 tablet (5 mg total) by mouth daily. [facility] lisinopriL (PRINIVIL,Z ESTRIL) 5 MG tablet 2022-0 9-15 00:00: 00 05-28 00:00 :00 No 5mg QD Take 1 tablet (5 mg total) by mouth daily. [facility] lisinopriL (PRINIVIL,Z ESTRIL) 5 MG tablet 2022-0 9-15 00:00: 00 05-28 00:00 :00 No 5mg QD Take 1 tablet (5 mg total) by mouth daily. [facility] lisinopriL (PRINIVIL,Z ESTRIL) 5 MG tablet 2022-0 9-15 00:00: 00 05-28 00:00 :00 No 5mg QD Take 1 tablet (5 mg total) by mouth daily. [facility] lisinopriL (PRINIVIL,Z ESTRIL) 5 MG tablet 2022-0 9-15 00:00: 00 05-28 00:00 :00 No 5mg QD Take 1 tablet (5 mg total) by mouth daily. [facility] lisinopriL (PRINIVIL,Z ESTRIL) 5 MG tablet 2022-0 9-15 00:00: 00 05-28 00:00 :00 No 5mg QD Take 1 tablet (5 mg total) by mouth daily. [facility] lisinopriL (PRINIVIL,Z ESTRIL) 5 MG tablet 2022-0 9-15 00:00: 00 05-28 00:00 :00 No 5mg QD Take 1 tablet (5 mg total) by mouth daily. [facility] lisinopriL (PRINIVIL,Z ESTRIL) 5 MG tablet 2022-0 9-15 00:00: 00 05-28 00:00 :00 No 5mg QD Take 1 tablet (5 mg total) by mouth daily. [facility] lisinopriL (PRINIVIL,Z ESTRIL) 5 MG tablet 2022-0 9-15 00:00: 00 05-28 00:00 :00 No 5mg QD Take 1 tablet (5 mg total) by mouth daily. [facility] lisinopriL (PRINIVIL,Z ESTRIL) 5 MG tablet 2022-0 9-15 00:00: 00 05-28 00:00 :00 No 5mg QD Take 1 tablet (5 mg total) by mouth daily. [facility] lisinopriL (PRINIVIL,Z ESTRIL) 5 MG tablet 2022-0 9-15 00:00: 00 05-28 00:00 :00 No 5mg QD Take 1 tablet (5 mg total) by mouth daily. [facility] lisinopriL (PRINIVIL,Z ESTRIL) 5 MG tablet 2022-0 9-15 00:00: 00 05-28 00:00 :00 No 5mg QD Take 1 tablet (5 mg total) by mouth daily. [facility] lisinopriL (PRINIVIL,Z ESTRIL) 5 MG tablet 2022-0 9-15 00:00: 00 05-28 00:00 :00 No 5mg QD Take 1 tablet (5 mg total) by mouth daily. [facility] lisinopriL (PRINIVIL,Z ESTRIL) 5 MG tablet 2022-0 9-15 00:00: 00 2023- 11-09 00:00 :00 No 5mg QD Take 1 tablet (5 mg total) by mouth daily. [facility] lisinopriL (PRINIVIL,Z ESTRIL) 5 MG tablet 04-03 00:00: 05-28 00:00 :00 No 5mg QD Take 1 tablet (5 mg total) by mouth daily. [facility] lisinopriL (PRINIVIL,Z ESTRIL) 5 MG tablet 04-03 00:00: 00 05-28 00:00 :00 No 5mg QD Take 1 tablet (5 mg total) by mouth daily. [facility] lisinopriL (PRINIVIL,Z ESTRIL) 5 MG tablet 04-03 00:00: 00 05-28 00:00 :00 No 5mg QD Take 1 tablet (5 mg total) by mouth daily. [facility] lisinopriL (PRINIVIL,Z ESTRIL) 5 MG tablet 04-03 00:00: 00 05-28 00:00 :00 No 5mg QD Take 1 tablet (5 mg total) by mouth daily. [facility] clonazePAM (KlonoPIN) 0.5 MG tablet 04-03 00:00: 00 05-03 23:59 :00 No .25mg Take 0.5 tablets (0.25 mg total) by mouth 2 (two) times daily as needed for Anxiety for up to 30 days. Max Daily Amount: 0.5 mg [facility] clonazePAM (KlonoPIN) 0.5 MG tablet 04-03 00:00: 00 05-03 23:59 :00 No .25mg Take 0.5 tablets (0.25 mg total) by mouth 2 (two) times daily as needed for Anxiety for up to 30 days. Max Daily Amount: 0.5 mg [facility] clonazePAM (KlonoPIN) 0.5 MG tablet 04-03 00:00: 00 05-03 23:59 :00 No .25mg Take 0.5 tablets (0.25 mg total) by mouth 2 (two) times daily as needed for Anxiety for up to 30 days. Max Daily Amount: 0.5 mg [facility] clonazePAM (KlonoPIN) 0.5 MG tablet 0 15 00:00: 00 05-03 23:59 :00 No .25mg Take 0.5 tablets (0.25 mg total) by mouth 2 (two) times daily as needed for Anxiety for up to 30 days. Max Daily Amount: 0.5 mg [facility] clonazePAM (KlonoPIN) 0.5 MG tablet 0 15 00:00: 00 05-03 23:59 :00 No .25mg Take 0.5 tablets (0.25 mg total) by mouth 2 (two) times daily as needed for Anxiety for up to 30 days. Max Daily Amount: 0.5 mg [facility] clonazePAM (KlonoPIN) 0.5 MG tablet 0 15 00:00: 00 05-03 23:59 :00 No .25mg Take 0.5 tablets (0.25 mg total) by mouth 2 (two) times daily as needed for Anxiety for up to 30 days. Max Daily Amount: 0.5 mg [facility] clonazePAM (KlonoPIN) 0.5 MG tablet 0 15 00:00: 00 05-03 23:59 :00 No .25mg Take 0.5 tablets (0.25 mg total) by mouth 2 (two) times daily as needed for Anxiety for up to 30 days. Max Daily Amount: 0.5 mg [facility] clonazePAM (KlonoPIN) 0.5 MG tablet 0 15 00:00: 00 05-03 23:59 :00 No .25mg Take 0.5 tablets (0.25 mg total) by mouth 2 (two) times daily as needed for Anxiety for up to 30 days. Max Daily Amount: 0.5 mg [facility] clonazePAM (KlonoPIN) 0.5 MG tablet 0 15 00:00: 00 05-03 23:59 :00 No .25mg Take 0.5 tablets (0.25 mg total) by mouth 2 (two) times daily as needed for Anxiety for up to 30 days. Max Daily Amount: 0.5 mg [facility] clonazePAM (KlonoPIN) 0.5 MG tablet 0 15 00:00: 00 05-03 23:59 :00 No .25mg Take 0.5 tablets (0.25 mg total) by mouth 2 (two) times daily as needed for Anxiety for up to 30 days. Max Daily Amount: 0.5 mg [facility] clonazePAM (KlonoPIN) 0.5 MG tablet 0 15 00:00: 00 05-03 23:59 :00 No .25mg Take 0.5 tablets (0.25 mg total) by mouth 2 (two) times daily as needed for Anxiety for up to 30 days. Max Daily Amount: 0.5 mg [facility] clonazePAM (KlonoPIN) 0.5 MG tablet 15 00:00: 00 05-03 23:59 :00 No .25mg Take 0.5 tablets (0.25 mg total) by mouth 2 (two) times daily as needed for Anxiety for up to 30 days. Max Daily Amount: 0.5 mg [facility] clonazePAM (KlonoPIN) 0.5 MG tablet 15 00:00: 00 05-03 23:59 :00 No .25mg Take 0.5 tablets (0.25 mg total) by mouth 2 (two) times daily as needed for Anxiety for up to 30 days. Max Daily Amount: 0.5 mg [facility] clonazePAM (KlonoPIN) 0.5 MG tablet 0 15 00:00: 00 05-03 23:59 :00 No .25mg Take 0.5 tablets (0.25 mg total) by mouth 2 (two) times daily as needed for Anxiety for up to 30 days. Max Daily Amount: 0.5 mg [facility] clonazePAM (KlonoPIN) 0.5 MG tablet 0 15 00:00: 00 05-03 23:59 :00 No .25mg Take 0.5 tablets (0.25 mg total) by mouth 2 (two) times daily as needed for Anxiety for up to 30 days. Max Daily Amount: 0.5 mg [facility] clonazePAM (KlonoPIN) 0.5 MG tablet 0 15 00:00: 00 05-03 23:59 :00 No .25mg Take 0.5 tablets (0.25 mg total) by mouth 2 (two) times daily as needed for Anxiety for up to 30 days. Max Daily Amount: 0.5 mg [facility] clonazePAM (KlonoPIN) 0.5 MG tablet 15 00:00: 00 05-03 23:59 :00 No .25mg Take 0.5 tablets (0.25 mg total) by mouth 2 (two) times daily as needed for Anxiety for up to 30 days. Max Daily Amount: 0.5 mg [facility] clonazePAM (KlonoPIN) 0.5 MG tablet 04-03 00:00: 00 05-03 23:59 :00 No .25mg Take 0.5 tablets (0.25 mg total) by mouth 2 (two) times daily as needed for Anxiety for up to 30 days. Max Daily Amount: 0.5 mg [facility] clonazePAM (KlonoPIN) 0.5 MG tablet 15 00:00: 00 05-03 23:59 :00 No .25mg Take 0.5 tablets (0.25 mg total) by mouth 2 (two) times daily as needed for Anxiety for up to 30 days. Max Daily Amount: 0.5 mg [facility] clonazePAM (KlonoPIN) 0.5 MG tablet 0 15 00:00: 00 05-03 23:59 :00 No .25mg Take 0.5 tablets (0.25 mg total) by mouth 2 (two) times daily as needed for Anxiety for up to 30 days. Max Daily Amount: 0.5 mg [facility] clonazePAM (KlonoPIN) 0.5 MG tablet 0 15 00:00: 00 05-03 23:59 :00 No .25mg Take 0.5 tablets (0.25 mg total) by mouth 2 (two) times daily as needed for Anxiety for up to 30 days. Max Daily Amount: 0.5 mg [facility] clonazePAM (KlonoPIN) 0.5 MG tablet 15 00:00: 00 05-03 23:59 :00 No .25mg Take 0.5 tablets (0.25 mg total) by mouth 2 (two) times daily as needed for Anxiety for up to 30 days. Max Daily Amount: 0.5 mg [facility] clonazePAM (KlonoPIN) 0.5 MG tablet 04-03 00:00: 00 05-03 23:59 :00 No .25mg Take 0.5 tablets (0.25 mg total) by mouth 2 (two) times daily as needed for Anxiety for up to 30 days. Max Daily Amount: 0.5 mg [facility] clonazePAM (KlonoPIN) 0.5 MG tablet 04-03 00:00: 00 05-03 23:59 :00 No .25mg Take 0.5 tablets (0.25 mg total) by mouth 2 (two) times daily as needed for Anxiety for up to 30 days. Max Daily Amount: 0.5 mg [facility] clonazePAM (KlonoPIN) 0.5 MG tablet 04-03 00:00: 00 05-03 23:59 :00 No .25mg Take 0.5 tablets (0.25 mg total) by mouth 2 (two) times daily as needed for Anxiety for up to 30 days. Max Daily Amount: 0.5 mg [facility] clonazePAM (KlonoPIN) 0.5 MG tablet 0 15 00:00: 00 05-03 23:59 :00 No .25mg Take 0.5 tablets (0.25 mg total) by mouth 2 (two) times daily as needed for Anxiety for up to 30 days. Max Daily Amount: 0.5 mg [facility] clonazePAM (KlonoPIN) 0.5 MG tablet 0 15 00:00: 00 05-03 23:59 :00 No .25mg Take 0.5 tablets (0.25 mg total) by mouth 2 (two) times daily as needed for Anxiety for up to 30 days. Max Daily Amount: 0.5 mg [facility] clonazePAM (KlonoPIN) 0.5 MG tablet 04-03 00:00: 00 05-03 23:59 :00 No .25mg Take 0.5 tablets (0.25 mg total) by mouth 2 (two) times daily as needed for Anxiety for up to 30 days. Max Daily Amount: 0.5 mg [facility] clonazePAM (KlonoPIN) 0.5 MG tablet 04-03 00:00: 00 05-03 23:59 :00 No .25mg Take 0.5 tablets (0.25 mg total) by mouth 2 (two) times daily as needed for Anxiety for up to 30 days. Max Daily Amount: 0.5 mg [facility] clonazePAM (KlonoPIN) 0.5 MG tablet 04-03 00:00: 00 05-03 23:59 :00 No .25mg Take 0.5 tablets (0.25 mg total) by mouth 2 (two) times daily as needed for Anxiety for up to 30 days. Max Daily Amount: 0.5 mg [facility] clonazePAM (KlonoPIN) 0.5 MG tablet 04-03 00:00: 00 05-03 23:59 :00 No .25mg Take 0.5 tablets (0.25 mg total) by mouth 2 (two) times daily as needed for Anxiety for up to 30 days. Max Daily Amount: 0.5 mg [facility] clonazePAM (KlonoPIN) 0.5 MG tablet 15 00:00: 00 05-03 23:59 :00 No .25mg Take 0.5 tablets (0.25 mg total) by mouth 2 (two) times daily as needed for Anxiety for up to 30 days. Max Daily Amount: 0.5 mg [facility] clonazePAM (KlonoPIN) 0.5 MG tablet 15 00:00: 00 05-03 23:59 :00 No .25mg Take 0.5 tablets (0.25 mg total) by mouth 2 (two) times daily as needed for Anxiety for up to 30 days. Max Daily Amount: 0.5 mg [facility] clonazePAM (KlonoPIN) 0.5 MG tablet 0 15 00:00: 00 05-03 23:59 :00 No .25mg Take 0.5 tablets (0.25 mg total) by mouth 2 (two) times daily as needed for Anxiety for up to 30 days. Max Daily Amount: 0.5 mg [facility] clonazePAM (KlonoPIN) 0.5 MG tablet 15 00:00: 00 05-03 23:59 :00 No .25mg Take 0.5 tablets (0.25 mg total) by mouth 2 (two) times daily as needed for Anxiety for up to 30 days. Max Daily Amount: 0.5 mg [facility] clonazePAM (KlonoPIN) 0.5 MG tablet 04-03 00:00: 00 05-03 23:59 :00 No .25mg Take 0.5 tablets (0.25 mg total) by mouth 2 (two) times daily as needed for Anxiety for up to 30 days. Max Daily Amount: 0.5 mg [facility] clonazePAM (KlonoPIN) 0.5 MG tablet 04-03 00:00: 00 05-03 23:59 :00 No .25mg Take 0.5 tablets (0.25 mg total) by mouth 2 (two) times daily as needed for Anxiety for up to 30 days. Max Daily Amount: 0.5 mg [facility] clonazePAM (KlonoPIN) 0.5 MG tablet 0 15 00:00: 00 05-03 23:59 :00 No .25mg Take 0.5 tablets (0.25 mg total) by mouth 2 (two) times daily as needed for Anxiety for up to 30 days. Max Daily Amount: 0.5 mg [facility] clonazePAM (KlonoPIN) 0.5 MG tablet 0 15 00:00: 00 05-03 23:59 :00 No .25mg Take 0.5 tablets (0.25 mg total) by mouth 2 (two) times daily as needed for Anxiety for up to 30 days. Max Daily Amount: 0.5 mg [facility] clonazePAM (KlonoPIN) 0.5 MG tablet 04-03 00:00: 00 05-03 23:59 :00 No .25mg Take 0.5 tablets (0.25 mg total) by mouth 2 (two) times daily as needed for Anxiety for up to 30 days. Max Daily Amount: 0.5 mg [facility] clonazePAM (KlonoPIN) 0.5 MG tablet 04-03 00:00: 00 05-03 23:59 :00 No .25mg Take 0.5 tablets (0.25 mg total) by mouth 2 (two) times daily as needed for Anxiety for up to 30 days. Max Daily Amount: 0.5 mg [facility] clonazePAM (KlonoPIN) 0.5 MG tablet 04-03 00:00: 00 05-03 23:59 :00 No .25mg Take 0.5 tablets (0.25 mg total) by mouth 2 (two) times daily as needed for Anxiety for up to 30 days. Max Daily Amount: 0.5 mg [facility] clonazePAM (KlonoPIN) 0.5 MG tablet 04-03 00:00: 00 05-03 23:59 :00 No .25mg Take 0.5 tablets (0.25 mg total) by mouth 2 (two) times daily as needed for Anxiety for up to 30 days. Max Daily Amount: 0.5 mg [facility] clonazePAM (KlonoPIN) 0.5 MG tablet 04-03 00:00: 00 05-03 23:59 :00 No .25mg Take 0.5 tablets (0.25 mg total) by mouth 2 (two) times daily as needed for Anxiety for up to 30 days. Max Daily Amount: 0.5 mg [facility] HYDROcodone -acetaminop hen (NORCO 10-325) 10-325 mg per tablet 04-03 00:00: 00 04-13 23:59 :00 No 1{tbl} Take 1 tablet by mouth every 6 (six) hours as needed for up to 10 days. Max Daily Amount: 4 tablets [facility] methocarbam oL (ROBAXIN) 500 MG tablet -15 00:00: 00 04-13 23:59 :00 No 500mg Q.25D Take 1 tablet (500 mg total) by mouth 4 (four) times daily for 10 days. [facility] HYDROcodone -acetaminop hen (NORCO 10-325) 10-325 mg per tablet 04-03 00:00: 00 04-13 23:59 :00 No 1{tbl} Take 1 tablet by mouth every 6 (six) hours as needed for up to 10 days. Max Daily Amount: 4 tablets [facility] methocarbam oL (ROBAXIN) 500 MG tablet 04-03 00:00: 00 04-13 23:59 :00 No 500mg Q.25D Take 1 tablet (500 mg total) by mouth 4 (four) times daily for 10 days. [facility] HYDROcodone -acetaminop hen (NORCO 10-325) 10-325 mg per tablet 04-03 00:00: 00 04-13 23:59 :00 No 1{tbl} Take 1 tablet by mouth every 6 (six) hours as needed for up to 10 days. Max Daily Amount: 4 tablets [facility] methocarbam oL (ROBAXIN) 500 MG tablet 04-03 00:00: 00 04-13 23:59 :00 No 500mg Q.25D Take 1 tablet (500 mg total) by mouth 4 (four) times daily for 10 days. [facility] HYDROcodone -acetaminop hen (NORCO 10-325) 10-325 mg per tablet 15 00:00: 00 04-13 23:59 :00 No 1{tbl} Take 1 tablet by mouth every 6 (six) hours as needed for up to 10 days. Max Daily Amount: 4 tablets [facility] methocarbam oL (ROBAXIN) 500 MG tablet 15 00:00: 00 04-13 23:59 :00 No 500mg Q.25D Take 1 tablet (500 mg total) by mouth 4 (four) times daily for 10 days. [facility] HYDROcodone -acetaminop hen (NORCO 10-325) 10-325 mg per tablet 04-03 00:00: 00 04-13 23:59 :00 No 1{tbl} Take 1 tablet by mouth every 6 (six) hours as needed for up to 10 days. Max Daily Amount: 4 tablets [facility] methocarbam oL (ROBAXIN) 500 MG tablet 04-03 00:00: 00 04-13 23:59 :00 No 500mg Q.25D Take 1 tablet (500 mg total) by mouth 4 (four) times daily for 10 days. [facility] HYDROcodone -acetaminop hen (NORCO 10-325) 10-325 mg per tablet 04-03 00:00: 00 04-13 23:59 :00 No 1{tbl} Take 1 tablet by mouth every 6 (six) hours as needed for up to 10 days. Max Daily Amount: 4 tablets [facility] methocarbam oL (ROBAXIN) 500 MG tablet 04-03 00:00: 00 04-13 23:59 :00 No 500mg Q.25D Take 1 tablet (500 mg total) by mouth 4 (four) times daily for 10 days. [facility] HYDROcodone -acetaminop hen (NORCO 10-325) 10-325 mg per tablet 04-03 00:00: 00 04-13 23:59 :00 No 1{tbl} Take 1 tablet by mouth every 6 (six) hours as needed for up to 10 days. Max Daily Amount: 4 tablets [facility] methocarbam oL (ROBAXIN) 500 MG tablet 04-03 00:00: 00 04-13 23:59 :00 No 500mg Q.25D Take 1 tablet (500 mg total) by mouth 4 (four) times daily for 10 days. [facility] HYDROcodone -acetaminop hen (NORCO 10-325) 10-325 mg per tablet 04-03 00:00: 00 04-13 23:59 :00 No 1{tbl} Take 1 tablet by mouth every 6 (six) hours as needed for up to 10 days. Max Daily Amount: 4 tablets [facility] methocarbam oL (ROBAXIN) 500 MG tablet 04-03 00:00: 00 04-13 23:59 :00 No 500mg Q.25D Take 1 tablet (500 mg total) by mouth 4 (four) times daily for 10 days. [facility] HYDROcodone -acetaminop hen (NORCO 10-325) 10-325 mg per tablet 04-03 00:00: 00 04-13 23:59 :00 No 1{tbl} Take 1 tablet by mouth every 6 (six) hours as needed for up to 10 days. Max Daily Amount: 4 tablets [facility] methocarbam oL (ROBAXIN) 500 MG tablet 04-03 00:00: 00 04-13 23:59 :00 No 500mg Q.25D Take 1 tablet (500 mg total) by mouth 4 (four) times daily for 10 days. [facility] HYDROcodone -acetaminop hen (NORCO 10-325) 10-325 mg per tablet 04-03 00:00: 00 04-13 23:59 :00 No 1{tbl} Take 1 tablet by mouth every 6 (six) hours as needed for up to 10 days. Max Daily Amount: 4 tablets [facility] methocarbam oL (ROBAXIN) 500 MG tablet 04-03 00:00: 00 04-13 23:59 :00 No 500mg Q.25D Take 1 tablet (500 mg total) by mouth 4 (four) times daily for 10 days. [facility] HYDROcodone -acetaminop hen (NORCO 10-325) 10-325 mg per tablet 04-03 00:00: 00 04-13 23:59 :00 No 1{tbl} Take 1 tablet by mouth every 6 (six) hours as needed for up to 10 days. Max Daily Amount: 4 tablets [facility] methocarbam oL (ROBAXIN) 500 MG tablet 04-03 00:00: 00 04-13 23:59 :00 No 500mg Q.25D Take 1 tablet (500 mg total) by mouth 4 (four) times daily for 10 days. [facility] HYDROcodone -acetaminop hen (NORCO 10-325) 10-325 mg per tablet 04-03 00:00: 00 04-13 23:59 :00 No 1{tbl} Take 1 tablet by mouth every 6 (six) hours as needed for up to 10 days. Max Daily Amount: 4 tablets [facility] methocarbam oL (ROBAXIN) 500 MG tablet 04-03 00:00: 00 04-13 23:59 :00 No 500mg Q.25D Take 1 tablet (500 mg total) by mouth 4 (four) times daily for 10 days. [facility] HYDROcodone -acetaminop hen (NORCO 10-325) 10-325 mg per tablet 04-03 00:00: 00 04-13 23:59 :00 No 1{tbl} Take 1 tablet by mouth every 6 (six) hours as needed for up to 10 days. Max Daily Amount: 4 tablets [facility] methocarbam oL (ROBAXIN) 500 MG tablet 04-03 00:00: 00 04-13 23:59 :00 No 500mg Q.25D Take 1 tablet (500 mg total) by mouth 4 (four) times daily for 10 days. [facility] HYDROcodone -acetaminop hen (NORCO 10-325) 10-325 mg per tablet 04-03 00:00: 00 04-13 23:59 :00 No 1{tbl} Take 1 tablet by mouth every 6 (six) hours as needed for up to 10 days. Max Daily Amount: 4 tablets [facility] methocarbam oL (ROBAXIN) 500 MG tablet 04-03 00:00: 00 04-13 23:59 :00 No 500mg Q.25D Take 1 tablet (500 mg total) by mouth 4 (four) times daily for 10 days. [facility] HYDROcodone -acetaminop hen (NORCO 10-325) 10-325 mg per tablet 04-03 00:00: 00 04-13 23:59 :00 No 1{tbl} Take 1 tablet by mouth every 6 (six) hours as needed for up to 10 days. Max Daily Amount: 4 tablets [facility] methocarbam oL (ROBAXIN) 500 MG tablet 04-03 00:00: 00 04-13 23:59 :00 No 500mg Q.25D Take 1 tablet (500 mg total) by mouth 4 (four) times daily for 10 days. [facility] HYDROcodone -acetaminop hen (NORCO 10-325) 10-325 mg per tablet 04-03 00:00: 00 04-13 23:59 :00 No 1{tbl} Take 1 tablet by mouth every 6 (six) hours as needed for up to 10 days. Max Daily Amount: 4 tablets [facility] methocarbam oL (ROBAXIN) 500 MG tablet 04-03 00:00: 00 04-13 23:59 :00 No 500mg Q.25D Take 1 tablet (500 mg total) by mouth 4 (four) times daily for 10 days. [facility] HYDROcodone -acetaminop hen (NORCO 10-325) 10-325 mg per tablet 04-03 00:00: 00 04-13 23:59 :00 No 1{tbl} Take 1 tablet by mouth every 6 (six) hours as needed for up to 10 days. Max Daily Amount: 4 tablets [facility] methocarbam oL (ROBAXIN) 500 MG tablet 04-03 00:00: 00 04-13 23:59 :00 No 500mg Q.25D Take 1 tablet (500 mg total) by mouth 4 (four) times daily for 10 days. [facility] HYDROcodone -acetaminop hen (NORCO 10-325) 10-325 mg per tablet 04-03 00:00: 00 04-13 23:59 :00 No 1{tbl} Take 1 tablet by mouth every 6 (six) hours as needed for up to 10 days. Max Daily Amount: 4 tablets [facility] methocarbam oL (ROBAXIN) 500 MG tablet -15 00:00: 00 04-13 23:59 :00 No 500mg Q.25D Take 1 tablet (500 mg total) by mouth 4 (four) times daily for 10 days. [facility] HYDROcodone -acetaminop hen (NORCO 10-325) 10-325 mg per tablet 04-03 00:00: 00 04-13 23:59 :00 No 1{tbl} Take 1 tablet by mouth every 6 (six) hours as needed for up to 10 days. Max Daily Amount: 4 tablets [facility] methocarbam oL (ROBAXIN) 500 MG tablet 04-03 00:00: 00 04-13 23:59 :00 No 500mg Q.25D Take 1 tablet (500 mg total) by mouth 4 (four) times daily for 10 days. [facility] HYDROcodone -acetaminop hen (NORCO 10-325) 10-325 mg per tablet 04-03 00:00: 00 04-13 23:59 :00 No 1{tbl} Take 1 tablet by mouth every 6 (six) hours as needed for up to 10 days. Max Daily Amount: 4 tablets [facility] methocarbam oL (ROBAXIN) 500 MG tablet 04-03 00:00: 00 04-13 23:59 :00 No 500mg Q.25D Take 1 tablet (500 mg total) by mouth 4 (four) times daily for 10 days. [facility] HYDROcodone -acetaminop hen (NORCO 10-325) 10-325 mg per tablet 15 00:00: 00 04-13 23:59 :00 No 1{tbl} Take 1 tablet by mouth every 6 (six) hours as needed for up to 10 days. Max Daily Amount: 4 tablets [facility] methocarbam oL (ROBAXIN) 500 MG tablet 15 00:00: 00 04-13 23:59 :00 No 500mg Q.25D Take 1 tablet (500 mg total) by mouth 4 (four) times daily for 10 days. [facility] HYDROcodone -acetaminop hen (NORCO 10-325) 10-325 mg per tablet 04-03 00:00: 00 04-13 23:59 :00 No 1{tbl} Take 1 tablet by mouth every 6 (six) hours as needed for up to 10 days. Max Daily Amount: 4 tablets [facility] methocarbam oL (ROBAXIN) 500 MG tablet 04-03 00:00: 00 04-13 23:59 :00 No 500mg Q.25D Take 1 tablet (500 mg total) by mouth 4 (four) times daily for 10 days. [facility] HYDROcodone -acetaminop hen (NORCO 10-325) 10-325 mg per tablet 04-03 00:00: 00 04-13 23:59 :00 No 1{tbl} Take 1 tablet by mouth every 6 (six) hours as needed for up to 10 days. Max Daily Amount: 4 tablets [facility] methocarbam oL (ROBAXIN) 500 MG tablet 04-03 00:00: 00 04-13 23:59 :00 No 500mg Q.25D Take 1 tablet (500 mg total) by mouth 4 (four) times daily for 10 days. [facility] HYDROcodone -acetaminop hen (NORCO 10-325) 10-325 mg per tablet 04-03 00:00: 00 04-13 23:59 :00 No 1{tbl} Take 1 tablet by mouth every 6 (six) hours as needed for up to 10 days. Max Daily Amount: 4 tablets [facility] methocarbam oL (ROBAXIN) 500 MG tablet 04-03 00:00: 00 04-13 23:59 :00 No 500mg Q.25D Take 1 tablet (500 mg total) by mouth 4 (four) times daily for 10 days. [facility] HYDROcodone -acetaminop hen (NORCO 10-325) 10-325 mg per tablet 04-03 00:00: 00 04-13 23:59 :00 No 1{tbl} Take 1 tablet by mouth every 6 (six) hours as needed for up to 10 days. Max Daily Amount: 4 tablets [facility] methocarbam oL (ROBAXIN) 500 MG tablet 04-03 00:00: 00 04-13 23:59 :00 No 500mg Q.25D Take 1 tablet (500 mg total) by mouth 4 (four) times daily for 10 days. [facility] HYDROcodone -acetaminop hen (NORCO 10-325) 10-325 mg per tablet 04-03 00:00: 00 04-13 23:59 :00 No 1{tbl} Take 1 tablet by mouth every 6 (six) hours as needed for up to 10 days. Max Daily Amount: 4 tablets [facility] methocarbam oL (ROBAXIN) 500 MG tablet 04-03 00:00: 00 04-13 23:59 :00 No 500mg Q.25D Take 1 tablet (500 mg total) by mouth 4 (four) times daily for 10 days. [facility] HYDROcodone -acetaminop hen (NORCO 10-325) 10-325 mg per tablet 04-03 00:00: 00 04-13 23:59 :00 No 1{tbl} Take 1 tablet by mouth every 6 (six) hours as needed for up to 10 days. Max Daily Amount: 4 tablets [facility] methocarbam oL (ROBAXIN) 500 MG tablet 04-03 00:00: 00 04-13 23:59 :00 No 500mg Q.25D Take 1 tablet (500 mg total) by mouth 4 (four) times daily for 10 days. [facility] HYDROcodone -acetaminop hen (NORCO 10-325) 10-325 mg per tablet 04-03 00:00: 00 04-13 23:59 :00 No 1{tbl} Take 1 tablet by mouth every 6 (six) hours as needed for up to 10 days. Max Daily Amount: 4 tablets [facility] methocarbam oL (ROBAXIN) 500 MG tablet 04-03 00:00: 00 04-13 23:59 :00 No 500mg Q.25D Take 1 tablet (500 mg total) by mouth 4 (four) times daily for 10 days. [facility] HYDROcodone -acetaminop hen (NORCO 10-325) 10-325 mg per tablet 04-03 00:00: 00 04-13 23:59 :00 No 1{tbl} Take 1 tablet by mouth every 6 (six) hours as needed for up to 10 days. Max Daily Amount: 4 tablets [facility] methocarbam oL (ROBAXIN) 500 MG tablet 04-03 00:00: 00 04-13 23:59 :00 No 500mg Q.25D Take 1 tablet (500 mg total) by mouth 4 (four) times daily for 10 days. [facility] HYDROcodone -acetaminop hen (NORCO 10-325) 10-325 mg per tablet 04-03 00:00: 00 04-13 23:59 :00 No 1{tbl} Take 1 tablet by mouth every 6 (six) hours as needed for up to 10 days. Max Daily Amount: 4 tablets [facility] methocarbam oL (ROBAXIN) 500 MG tablet 04-03 00:00: 00 04-13 23:59 :00 No 500mg Q.25D Take 1 tablet (500 mg total) by mouth 4 (four) times daily for 10 days. [facility] HYDROcodone -acetaminop hen (NORCO 10-325) 10-325 mg per tablet 04-03 00:00: 00 04-13 23:59 :00 No 1{tbl} Take 1 tablet by mouth every 6 (six) hours as needed for up to 10 days. Max Daily Amount: 4 tablets [facility] methocarbam oL (ROBAXIN) 500 MG tablet 04-03 00:00: 00 04-13 23:59 :00 No 500mg Q.25D Take 1 tablet (500 mg total) by mouth 4 (four) times daily for 10 days. [facility] HYDROcodone -acetaminop hen (NORCO 10-325) 10-325 mg per tablet 04-03 00:00: 00 04-13 23:59 :00 No 1{tbl} Take 1 tablet by mouth every 6 (six) hours as needed for up to 10 days. Max Daily Amount: 4 tablets [facility] methocarbam oL (ROBAXIN) 500 MG tablet 04-03 00:00: 00 04-13 23:59 :00 No 500mg Q.25D Take 1 tablet (500 mg total) by mouth 4 (four) times daily for 10 days. [facility] HYDROcodone -acetaminop hen (NORCO 10-325) 10-325 mg per tablet 04-03 00:00: 00 04-13 23:59 :00 No 1{tbl} Take 1 tablet by mouth every 6 (six) hours as needed for up to 10 days. Max Daily Amount: 4 tablets [facility] methocarbam oL (ROBAXIN) 500 MG tablet 04-03 00:00: 00 04-13 23:59 :00 No 500mg Q.25D Take 1 tablet (500 mg total) by mouth 4 (four) times daily for 10 days. [facility] HYDROcodone -acetaminop hen (NORCO 10-325) 10-325 mg per tablet 04-03 00:00: 00 04-13 23:59 :00 No 1{tbl} Take 1 tablet by mouth every 6 (six) hours as needed for up to 10 days. Max Daily Amount: 4 tablets [facility] methocarbam oL (ROBAXIN) 500 MG tablet 04-03 00:00: 00 04-13 23:59 :00 No 500mg Q.25D Take 1 tablet (500 mg total) by mouth 4 (four) times daily for 10 days. [facility] HYDROcodone -acetaminop hen (NORCO 10-325) 10-325 mg per tablet 04-03 00:00: 00 04-13 23:59 :00 No 1{tbl} Take 1 tablet by mouth every 6 (six) hours as needed for up to 10 days. Max Daily Amount: 4 tablets [facility] methocarbam oL (ROBAXIN) 500 MG tablet 15 00:00: 00 04-13 23:59 :00 No 500mg Q.25D Take 1 tablet (500 mg total) by mouth 4 (four) times daily for 10 days. [facility] HYDROcodone -acetaminop hen (NORCO 10-325) 10-325 mg per tablet 04-03 00:00: 00 04-13 23:59 :00 No 1{tbl} Take 1 tablet by mouth every 6 (six) hours as needed for up to 10 days. Max Daily Amount: 4 tablets [facility] methocarbam oL (ROBAXIN) 500 MG tablet 04-03 00:00: 00 04-13 23:59 :00 No 500mg Q.25D Take 1 tablet (500 mg total) by mouth 4 (four) times daily for 10 days. [facility] HYDROcodone -acetaminop hen (NORCO 10-325) 10-325 mg per tablet 04-03 00:00: 00 04-13 23:59 :00 No 1{tbl} Take 1 tablet by mouth every 6 (six) hours as needed for up to 10 days. Max Daily Amount: 4 tablets [facility] methocarbam oL (ROBAXIN) 500 MG tablet 04-03 00:00: 00 04-13 23:59 :00 No 500mg Q.25D Take 1 tablet (500 mg total) by mouth 4 (four) times daily for 10 days. [facility] HYDROcodone -acetaminop hen (NORCO 10-325) 10-325 mg per tablet 15 00:00: 00 04-13 23:59 :00 No 1{tbl} Take 1 tablet by mouth every 6 (six) hours as needed for up to 10 days. Max Daily Amount: 4 tablets [facility] methocarbam oL (ROBAXIN) 500 MG tablet 15 00:00: 00 04-13 23:59 :00 No 500mg Q.25D Take 1 tablet (500 mg total) by mouth 4 (four) times daily for 10 days. [facility] HYDROcodone -acetaminop hen (NORCO 10-325) 10-325 mg per tablet 04-03 00:00: 00 04-13 23:59 :00 No 1{tbl} Take 1 tablet by mouth every 6 (six) hours as needed for up to 10 days. Max Daily Amount: 4 tablets [facility] methocarbam oL (ROBAXIN) 500 MG tablet 04-03 00:00: 00 04-13 23:59 :00 No 500mg Q.25D Take 1 tablet (500 mg total) by mouth 4 (four) times daily for 10 days. [facility] HYDROcodone -acetaminop hen (NORCO 10-325) 10-325 mg per tablet 04-03 00:00: 00 04-13 23:59 :00 No 1{tbl} Take 1 tablet by mouth every 6 (six) hours as needed for up to 10 days. Max Daily Amount: 4 tablets [facility] methocarbam oL (ROBAXIN) 500 MG tablet 04-03 00:00: 00 04-13 23:59 :00 No 500mg Q.25D Take 1 tablet (500 mg total) by mouth 4 (four) times daily for 10 days. [facility] HYDROcodone -acetaminop hen (NORCO 10-325) 10-325 mg per tablet 04-03 00:00: 00 04-13 23:59 :00 No 1{tbl} Take 1 tablet by mouth every 6 (six) hours as needed for up to 10 days. Max Daily Amount: 4 tablets [facility] methocarbam oL (ROBAXIN) 500 MG tablet 04-03 00:00: 00 04-13 23:59 :00 No 500mg Q.25D Take 1 tablet (500 mg total) by mouth 4 (four) times daily for 10 days. [facility] HYDROcodone -acetaminop hen (NORCO 10-325) 10-325 mg per tablet 04-03 00:00: 00 04-13 23:59 :00 No 1{tbl} Take 1 tablet by mouth every 6 (six) hours as needed for up to 10 days. Max Daily Amount: 4 tablets [facility] methocarbam oL (ROBAXIN) 500 MG tablet 04-03 00:00: 00 04-13 23:59 :00 No 500mg Q.25D Take 1 tablet (500 mg total) by mouth 4 (four) times daily for 10 days. [facility] HYDROcodone -acetaminop hen (NORCO 10-325) 10-325 mg per tablet 04-03 00:00: 00 04-13 23:59 :00 No 1{tbl} Take 1 tablet by mouth every 6 (six) hours as needed for up to 10 days. Max Daily Amount: 4 tablets [facility] methocarbam oL (ROBAXIN) 500 MG tablet 04-03 00:00: 00 04-13 23:59 :00 No 500mg Q.25D Take 1 tablet (500 mg total) by mouth 4 (four) times daily for 10 days. [facility] HYDROcodone -acetaminop hen (NORCO 10-325) 10-325 mg per tablet 04-03 00:00: 00 04-13 23:59 :00 No 1{tbl} Take 1 tablet by mouth every 6 (six) hours as needed for up to 10 days. Max Daily Amount: 4 tablets [facility] methocarbam oL (ROBAXIN) 500 MG tablet 04-03 00:00: 00 04-13 23:59 :00 No 500mg Q.25D Take 1 tablet (500 mg total) by mouth 4 (four) times daily for 10 days. [facility] aspirin 81 MG EC tablet 04-03 00:00: 00 04-03 00:00 :00 No 81mg QD Take 1 tablet (81 mg total) by mouth daily for 90 days. [facility] DULoxetine (CYMBALTA) 30 MG capsule 04-03 00:00: 00 04-03 00:00 :00 No 30mg QD Take 1 capsule (30 mg total) by mouth daily. [facility] furosemide (LASIX) 20 MG tablet 04-03 00:00: 00 04-03 00:00 :00 No 20mg QD Take 1 tablet (20 mg total) by mouth daily. [facility] lisinopriL (PRINIVIL,Z ESTRIL) 5 MG tablet 04-03 00:00: 00 04-03 00:00 :00 No 5mg QD Take 1 tablet (5 mg total) by mouth daily. [facility] lisinopriL (PRINIVIL,Z ESTRIL) 5 MG tablet 04-03 00:00: 00 04-03 00:00 :00 No 5mg QD Take 1 tablet (5 mg total) by mouth daily. [facility] aspirin 81 MG EC tablet 04-03 00:00: 00 04-03 00:00 :00 No 81mg QD Take 1 tablet (81 mg total) by mouth daily for 90 days. [facility] DULoxetine (CYMBALTA) 30 MG capsule 04-03 00:00: 00 04-03 00:00 :00 No 30mg QD Take 1 capsule (30 mg total) by mouth daily. [facility] furosemide (LASIX) 20 MG tablet 04-03 00:00: 00 04-03 00:00 :00 No 20mg QD Take 1 tablet (20 mg total) by mouth daily. [facility] lisinopriL (PRINIVIL,Z ESTRIL) 5 MG tablet 04-03 00:00: 00 04-03 00:00 :00 No 5mg QD Take 1 tablet (5 mg total) by mouth daily. [facility] aspirin 81 MG EC tablet 04-03 00:00: 00 04-03 00:00 :00 No 81mg QD Take 1 tablet (81 mg total) by mouth daily for 90 days. [facility] DULoxetine (CYMBALTA) 30 MG capsule 04-03 00:00: 00 04-03 00:00 :00 No 30mg QD Take 1 capsule (30 mg total) by mouth daily. [facility] furosemide (LASIX) 20 MG tablet 04-03 00:00: 00 04-03 00:00 :00 No 20mg QD Take 1 tablet (20 mg total) by mouth daily. [facility] lisinopriL (PRINIVIL,Z ESTRIL) 5 MG tablet 04-03 00:00: 00 04-03 00:00 :00 No 5mg QD Take 1 tablet (5 mg total) by mouth daily. [facility] aspirin 81 MG EC tablet 04-03 00:00: 00 04-03 00:00 :00 No 81mg QD Take 1 tablet (81 mg total) by mouth daily for 90 days. [facility] DULoxetine (CYMBALTA) 30 MG capsule 04-03 00:00: 00 04-03 00:00 :00 No 30mg QD Take 1 capsule (30 mg total) by mouth daily. [facility] furosemide (LASIX) 20 MG tablet 04-03 00:00: 00 04-03 00:00 :00 No 20mg QD Take 1 tablet (20 mg total) by mouth daily. [facility] lisinopriL (PRINIVIL,Z ESTRIL) 5 MG tablet 04-03 00:00: 00 04-03 00:00 :00 No 5mg QD Take 1 tablet (5 mg total) by mouth daily. [facility] aspirin 81 MG EC tablet 04-03 00:00: 00 04-03 00:00 :00 No 81mg QD Take 1 tablet (81 mg total) by mouth daily for 90 days. [facility] DULoxetine (CYMBALTA) 30 MG capsule 04-03 00:00: 00 04-03 00:00 :00 No 30mg QD Take 1 capsule (30 mg total) by mouth daily. [facility] furosemide (LASIX) 20 MG tablet 04-03 00:00: 00 04-03 00:00 :00 No 20mg QD Take 1 tablet (20 mg total) by mouth daily. [facility] lisinopriL (PRINIVIL,Z ESTRIL) 5 MG tablet 04-03 00:00: 00 04-03 00:00 :00 No 5mg QD Take 1 tablet (5 mg total) by mouth daily. [facility] aspirin 81 MG EC tablet 04-03 00:00: 00 04-03 00:00 :00 No 81mg QD Take 1 tablet (81 mg total) by mouth daily for 90 days. [facility] DULoxetine (CYMBALTA) 30 MG capsule 04-03 00:00: 00 04-03 00:00 :00 No 30mg QD Take 1 capsule (30 mg total) by mouth daily. [facility] furosemide (LASIX) 20 MG tablet 04-03 00:00: 00 04-03 00:00 :00 No 20mg QD Take 1 tablet (20 mg total) by mouth daily. [facility] lisinopriL (PRINIVIL,Z ESTRIL) 5 MG tablet 04-03 00:00: 00 04-03 00:00 :00 No 5mg QD Take 1 tablet (5 mg total) by mouth daily. [facility] aspirin 81 MG EC tablet 04-03 00:00: 00 04-03 00:00 :00 No 81mg QD Take 1 tablet (81 mg total) by mouth daily for 90 days. [facility] DULoxetine (CYMBALTA) 30 MG capsule 04-03 00:00: 00 04-03 00:00 :00 No 30mg QD Take 1 capsule (30 mg total) by mouth daily. [facility] furosemide (LASIX) 20 MG tablet 04-03 00:00: 00 04-03 00:00 :00 No 20mg QD Take 1 tablet (20 mg total) by mouth daily. [facility] aspirin 81 MG EC tablet 04-03 00:00: 00 04-03 00:00 :00 No 81mg QD Take 1 tablet (81 mg total) by mouth daily for 90 days. [facility] DULoxetine (CYMBALTA) 30 MG capsule 04-03 00:00: 00 04-03 00:00 :00 No 30mg QD Take 1 capsule (30 mg total) by mouth daily. [facility] furosemide (LASIX) 20 MG tablet 04-03 00:00: 00 04-03 00:00 :00 No 20mg QD Take 1 tablet (20 mg total) by mouth daily. [facility] lisinopriL (PRINIVIL,Z ESTRIL) 5 MG tablet 04-03 00:00: 00 04-03 00:00 :00 No 5mg QD Take 1 tablet (5 mg total) by mouth daily. [facility] lisinopriL (PRINIVIL,Z ESTRIL) 5 MG tablet 04-03 00:00: 00 04-03 00:00 :00 No 5mg QD Take 1 tablet (5 mg total) by mouth daily. [facility] aspirin 81 MG EC tablet 04-03 00:00: 00 04-03 00:00 :00 No 81mg QD Take 1 tablet (81 mg total) by mouth daily for 90 days. [facility] DULoxetine (CYMBALTA) 30 MG capsule 04-03 00:00: 00 04-03 00:00 :00 No 30mg QD Take 1 capsule (30 mg total) by mouth daily. [facility] furosemide (LASIX) 20 MG tablet 04-03 00:00: 00 04-03 00:00 :00 No 20mg QD Take 1 tablet (20 mg total) by mouth daily. [facility] lisinopriL (PRINIVIL,Z ESTRIL) 5 MG tablet 04-03 00:00: 00 04-03 00:00 :00 No 5mg QD Take 1 tablet (5 mg total) by mouth daily. [facility] aspirin 81 MG EC tablet 04-03 00:00: 00 04-03 00:00 :00 No 81mg QD Take 1 tablet (81 mg total) by mouth daily for 90 days. [facility] DULoxetine (CYMBALTA) 30 MG capsule 04-03 00:00: 00 04-03 00:00 :00 No 30mg QD Take 1 capsule (30 mg total) by mouth daily. [facility] furosemide (LASIX) 20 MG tablet 04-03 00:00: 00 04-03 00:00 :00 No 20mg QD Take 1 tablet (20 mg total) by mouth daily. [facility] lisinopriL (PRINIVIL,Z ESTRIL) 5 MG tablet 04-03 00:00: 00 04-03 00:00 :00 No 5mg QD Take 1 tablet (5 mg total) by mouth daily. [facility] aspirin 81 MG EC tablet 04-03 00:00: 00 04-03 00:00 :00 No 81mg QD Take 1 tablet (81 mg total) by mouth daily for 90 days. [facility] DULoxetine (CYMBALTA) 30 MG capsule 04-03 00:00: 00 04-03 00:00 :00 No 30mg QD Take 1 capsule (30 mg total) by mouth daily. [facility] furosemide (LASIX) 20 MG tablet 04-03 00:00: 00 04-03 00:00 :00 No 20mg QD Take 1 tablet (20 mg total) by mouth daily. [facility] lisinopriL (PRINIVIL,Z ESTRIL) 5 MG tablet 04-03 00:00: 00 04-03 00:00 :00 No 5mg QD Take 1 tablet (5 mg total) by mouth daily. [facility] aspirin 81 MG EC tablet 04-03 00:00: 00 04-03 00:00 :00 No 81mg QD Take 1 tablet (81 mg total) by mouth daily for 90 days. [facility] DULoxetine (CYMBALTA) 30 MG capsule 04-03 00:00: 00 04-03 00:00 :00 No 30mg QD Take 1 capsule (30 mg total) by mouth daily. [facility] furosemide (LASIX) 20 MG tablet 04-03 00:00: 00 04-03 00:00 :00 No 20mg QD Take 1 tablet (20 mg total) by mouth daily. [facility] lisinopriL (PRINIVIL,Z ESTRIL) 5 MG tablet 04-03 00:00: 00 04-03 00:00 :00 No 5mg QD Take 1 tablet (5 mg total) by mouth daily. [facility] aspirin 81 MG EC tablet 04-03 00:00: 00 04-03 00:00 :00 No 81mg QD Take 1 tablet (81 mg total) by mouth daily for 90 days. [facility] DULoxetine (CYMBALTA) 30 MG capsule 04-03 00:00: 00 04-03 00:00 :00 No 30mg QD Take 1 capsule (30 mg total) by mouth daily. [facility] furosemide (LASIX) 20 MG tablet 04-03 00:00: 00 04-03 00:00 :00 No 20mg QD Take 1 tablet (20 mg total) by mouth daily. [facility] lisinopriL (PRINIVIL,Z ESTRIL) 5 MG tablet 04-03 00:00: 00 04-03 00:00 :00 No 5mg QD Take 1 tablet (5 mg total) by mouth daily. [facility] aspirin 81 MG EC tablet 04-03 00:00: 00 04-03 00:00 :00 No 81mg QD Take 1 tablet (81 mg total) by mouth daily for 90 days. [facility] DULoxetine (CYMBALTA) 30 MG capsule 04-03 00:00: 00 04-03 00:00 :00 No 30mg QD Take 1 capsule (30 mg total) by mouth daily. [facility] aspirin 81 MG EC tablet 04-03 00:00: 00 04-03 00:00 :00 No 81mg QD Take 1 tablet (81 mg total) by mouth daily for 90 days. [facility] DULoxetine (CYMBALTA) 30 MG capsule 04-03 00:00: 00 04-03 00:00 :00 No 30mg QD Take 1 capsule (30 mg total) by mouth daily. [facility] furosemide (LASIX) 20 MG tablet 04-03 00:00: 00 04-03 00:00 :00 No 20mg QD Take 1 tablet (20 mg total) by mouth daily. [facility] furosemide (LASIX) 20 MG tablet 04-03 00:00: 00 04-03 00:00 :00 No 20mg QD Take 1 tablet (20 mg total) by mouth daily. [facility] lisinopriL (PRINIVIL,Z ESTRIL) 5 MG tablet 04-03 00:00: 00 04-03 00:00 :00 No 5mg QD Take 1 tablet (5 mg total) by mouth daily. [facility] lisinopriL (PRINIVIL,Z ESTRIL) 5 MG tablet 04-03 00:00: 00 04-03 00:00 :00 No 5mg QD Take 1 tablet (5 mg total) by mouth daily. [facility] aspirin 81 MG EC tablet 04-03 00:00: 00 04-03 00:00 :00 No 81mg QD Take 1 tablet (81 mg total) by mouth daily for 90 days. [facility] DULoxetine (CYMBALTA) 30 MG capsule 04-03 00:00: 00 04-03 00:00 :00 No 30mg QD Take 1 capsule (30 mg total) by mouth daily. [facility] furosemide (LASIX) 20 MG tablet 04-03 00:00: 00 04-03 00:00 :00 No 20mg QD Take 1 tablet (20 mg total) by mouth daily. [facility] lisinopriL (PRINIVIL,Z ESTRIL) 5 MG tablet 04-03 00:00: 00 04-03 00:00 :00 No 5mg QD Take 1 tablet (5 mg total) by mouth daily. [facility] aspirin 81 MG EC tablet 04-03 00:00: 00 04-03 00:00 :00 No 81mg QD Take 1 tablet (81 mg total) by mouth daily for 90 days. [facility] DULoxetine (CYMBALTA) 30 MG capsule 04-03 00:00: 00 04-03 00:00 :00 No 30mg QD Take 1 capsule (30 mg total) by mouth daily. [facility] furosemide (LASIX) 20 MG tablet 04-03 00:00: 00 04-03 00:00 :00 No 20mg QD Take 1 tablet (20 mg total) by mouth daily. [facility] lisinopriL (PRINIVIL,Z ESTRIL) 5 MG tablet 04-03 00:00: 00 04-03 00:00 :00 No 5mg QD Take 1 tablet (5 mg total) by mouth daily. [facility] aspirin 81 MG EC tablet 04-03 00:00: 00 04-03 00:00 :00 No 81mg QD Take 1 tablet (81 mg total) by mouth daily for 90 days. [facility] DULoxetine (CYMBALTA) 30 MG capsule 04-03 00:00: 00 04-03 00:00 :00 No 30mg QD Take 1 capsule (30 mg total) by mouth daily. [facility] furosemide (LASIX) 20 MG tablet 04-03 00:00: 00 04-03 00:00 :00 No 20mg QD Take 1 tablet (20 mg total) by mouth daily. [facility] lisinopriL (PRINIVIL,Z ESTRIL) 5 MG tablet 04-03 00:00: 00 04-03 00:00 :00 No 5mg QD Take 1 tablet (5 mg total) by mouth daily. [facility] aspirin 81 MG EC tablet 04-03 00:00: 00 04-03 00:00 :00 No 81mg QD Take 1 tablet (81 mg total) by mouth daily for 90 days. [facility] DULoxetine (CYMBALTA) 30 MG capsule 04-03 00:00: 00 04-03 00:00 :00 No 30mg QD Take 1 capsule (30 mg total) by mouth daily. [facility] furosemide (LASIX) 20 MG tablet 04-03 00:00: 00 04-03 00:00 :00 No 20mg QD Take 1 tablet (20 mg total) by mouth daily. [facility] lisinopriL (PRINIVIL,Z ESTRIL) 5 MG tablet 04-03 00:00: 00 04-03 00:00 :00 No 5mg QD Take 1 tablet (5 mg total) by mouth daily. [facility] aspirin 81 MG EC tablet 04-03 00:00: 00 04-03 00:00 :00 No 81mg QD Take 1 tablet (81 mg total) by mouth daily for 90 days. [facility] DULoxetine (CYMBALTA) 30 MG capsule 04-03 00:00: 00 04-03 00:00 :00 No 30mg QD Take 1 capsule (30 mg total) by mouth daily. [facility] furosemide (LASIX) 20 MG tablet 04-03 00:00: 00 04-03 00:00 :00 No 20mg QD Take 1 tablet (20 mg total) by mouth daily. [facility] lisinopriL (PRINIVIL,Z ESTRIL) 5 MG tablet 04-03 00:00: 00 04-03 00:00 :00 No 5mg QD Take 1 tablet (5 mg total) by mouth daily. [facility] aspirin 81 MG EC tablet 04-03 00:00: 00 04-03 00:00 :00 No 81mg QD Take 1 tablet (81 mg total) by mouth daily for 90 days. [facility] aspirin 81 MG EC tablet 04-03 00:00: 00 04-03 00:00 :00 No 81mg QD Take 1 tablet (81 mg total) by mouth daily for 90 days. [facility] DULoxetine (CYMBALTA) 30 MG capsule 04-03 00:00: 00 04-03 00:00 :00 No 30mg QD Take 1 capsule (30 mg total) by mouth daily. [facility] furosemide (LASIX) 20 MG tablet 04-03 00:00: 00 04-03 00:00 :00 No 20mg QD Take 1 tablet (20 mg total) by mouth daily. [facility] lisinopriL (PRINIVIL,Z ESTRIL) 5 MG tablet 04-03 00:00: 00 04-03 00:00 :00 No 5mg QD Take 1 tablet (5 mg total) by mouth daily. [facility] DULoxetine (CYMBALTA) 30 MG capsule 04-03 00:00: 00 04-03 00:00 :00 No 30mg QD Take 1 capsule (30 mg total) by mouth daily. [facility] furosemide (LASIX) 20 MG tablet 04-03 00:00: 00 04-03 00:00 :00 No 20mg QD Take 1 tablet (20 mg total) by mouth daily. [facility] lisinopriL (PRINIVIL,Z ESTRIL) 5 MG tablet 04-03 00:00: 00 04-03 00:00 :00 No 5mg QD Take 1 tablet (5 mg total) by mouth daily. [facility] aspirin 81 MG EC tablet 04-03 00:00: 00 04-03 00:00 :00 No 81mg QD Take 1 tablet (81 mg total) by mouth daily for 90 days. [facility] DULoxetine (CYMBALTA) 30 MG capsule 04-03 00:00: 00 04-03 00:00 :00 No 30mg QD Take 1 capsule (30 mg total) by mouth daily. [facility] furosemide (LASIX) 20 MG tablet 04-03 00:00: 00 04-03 00:00 :00 No 20mg QD Take 1 tablet (20 mg total) by mouth daily. [facility] lisinopriL (PRINIVIL,Z ESTRIL) 5 MG tablet 04-03 00:00: 00 04-03 00:00 :00 No 5mg QD Take 1 tablet (5 mg total) by mouth daily. [facility] aspirin 81 MG EC tablet 04-03 00:00: 00 04-03 00:00 :00 No 81mg QD Take 1 tablet (81 mg total) by mouth daily for 90 days. [facility] DULoxetine (CYMBALTA) 30 MG capsule 04-03 00:00: 00 04-03 00:00 :00 No 30mg QD Take 1 capsule (30 mg total) by mouth daily. [facility] furosemide (LASIX) 20 MG tablet 04-03 00:00: 00 04-03 00:00 :00 No 20mg QD Take 1 tablet (20 mg total) by mouth daily. [facility] lisinopriL (PRINIVIL,Z ESTRIL) 5 MG tablet 04-03 00:00: 00 04-03 00:00 :00 No 5mg QD Take 1 tablet (5 mg total) by mouth daily. [facility] aspirin 81 MG EC tablet 04-03 00:00: 00 04-03 00:00 :00 No 81mg QD Take 1 tablet (81 mg total) by mouth daily for 90 days. [facility] DULoxetine (CYMBALTA) 30 MG capsule 04-03 00:00: 00 04-03 00:00 :00 No 30mg QD Take 1 capsule (30 mg total) by mouth daily. [facility] furosemide (LASIX) 20 MG tablet 04-03 00:00: 00 04-03 00:00 :00 No 20mg QD Take 1 tablet (20 mg total) by mouth daily. [facility] lisinopriL (PRINIVIL,Z ESTRIL) 5 MG tablet 04-03 00:00: 00 04-03 00:00 :00 No 5mg QD Take 1 tablet (5 mg total) by mouth daily. [facility] aspirin 81 MG EC tablet 04-03 00:00: 00 04-03 00:00 :00 No 81mg QD Take 1 tablet (81 mg total) by mouth daily for 90 days. [facility] DULoxetine (CYMBALTA) 30 MG capsule 04-03 00:00: 00 04-03 00:00 :00 No 30mg QD Take 1 capsule (30 mg total) by mouth daily. [facility] aspirin 81 MG EC tablet 04-03 00:00: 00 04-03 00:00 :00 No 81mg QD Take 1 tablet (81 mg total) by mouth daily for 90 days. [facility] DULoxetine (CYMBALTA) 30 MG capsule 04-03 00:00: 00 04-03 00:00 :00 No 30mg QD Take 1 capsule (30 mg total) by mouth daily. [facility] furosemide (LASIX) 20 MG tablet 04-03 00:00: 00 04-03 00:00 :00 No 20mg QD Take 1 tablet (20 mg total) by mouth daily. [facility] furosemide (LASIX) 20 MG tablet 04-03 00:00: 00 04-03 00:00 :00 No 20mg QD Take 1 tablet (20 mg total) by mouth daily. [facility] lisinopriL (PRINIVIL,Z ESTRIL) 5 MG tablet 04-03 00:00: 00 04-03 00:00 :00 No 5mg QD Take 1 tablet (5 mg total) by mouth daily. [facility] lisinopriL (PRINIVIL,Z ESTRIL) 5 MG tablet 04-03 00:00: 00 04-03 00:00 :00 No 5mg QD Take 1 tablet (5 mg total) by mouth daily. [facility] aspirin 81 MG EC tablet 04-03 00:00: 00 04-03 00:00 :00 No 81mg QD Take 1 tablet (81 mg total) by mouth daily for 90 days. [facility] DULoxetine (CYMBALTA) 30 MG capsule 04-03 00:00: 00 04-03 00:00 :00 No 30mg QD Take 1 capsule (30 mg total) by mouth daily. [facility] furosemide (LASIX) 20 MG tablet 04-03 00:00: 00 04-03 00:00 :00 No 20mg QD Take 1 tablet (20 mg total) by mouth daily. [facility] lisinopriL (PRINIVIL,Z ESTRIL) 5 MG tablet 04-03 00:00: 00 04-03 00:00 :00 No 5mg QD Take 1 tablet (5 mg total) by mouth daily. [facility] aspirin 81 MG EC tablet 04-03 00:00: 00 04-03 00:00 :00 No 81mg QD Take 1 tablet (81 mg total) by mouth daily for 90 days. [facility] DULoxetine (CYMBALTA) 30 MG capsule 04-03 00:00: 00 04-03 00:00 :00 No 30mg QD Take 1 capsule (30 mg total) by mouth daily. [facility] furosemide (LASIX) 20 MG tablet 04-03 00:00: 00 04-03 00:00 :00 No 20mg QD Take 1 tablet (20 mg total) by mouth daily. [facility] lisinopriL (PRINIVIL,Z ESTRIL) 5 MG tablet 04-03 00:00: 00 04-03 00:00 :00 No 5mg QD Take 1 tablet (5 mg total) by mouth daily. [facility] aspirin 81 MG EC tablet 04-03 00:00: 00 04-03 00:00 :00 No 81mg QD Take 1 tablet (81 mg total) by mouth daily for 90 days. [facility] DULoxetine (CYMBALTA) 30 MG capsule 04-03 00:00: 00 04-03 00:00 :00 No 30mg QD Take 1 capsule (30 mg total) by mouth daily. [facility] furosemide (LASIX) 20 MG tablet 04-03 00:00: 00 04-03 00:00 :00 No 20mg QD Take 1 tablet (20 mg total) by mouth daily. [facility] lisinopriL (PRINIVIL,Z ESTRIL) 5 MG tablet 04-03 00:00: 00 04-03 00:00 :00 No 5mg QD Take 1 tablet (5 mg total) by mouth daily. [facility] aspirin 81 MG EC tablet 04-03 00:00: 00 04-03 00:00 :00 No 81mg QD Take 1 tablet (81 mg total) by mouth daily for 90 days. [facility] DULoxetine (CYMBALTA) 30 MG capsule 04-03 00:00: 00 04-03 00:00 :00 No 30mg QD Take 1 capsule (30 mg total) by mouth daily. [facility] furosemide (LASIX) 20 MG tablet 04-03 00:00: 00 04-03 00:00 :00 No 20mg QD Take 1 tablet (20 mg total) by mouth daily. [facility] lisinopriL (PRINIVIL,Z ESTRIL) 5 MG tablet 04-03 00:00: 00 04-03 00:00 :00 No 5mg QD Take 1 tablet (5 mg total) by mouth daily. [facility] aspirin 81 MG EC tablet 04-03 00:00: 00 04-03 00:00 :00 No 81mg QD Take 1 tablet (81 mg total) by mouth daily for 90 days. [facility] DULoxetine (CYMBALTA) 30 MG capsule 04-03 00:00: 00 04-03 00:00 :00 No 30mg QD Take 1 capsule (30 mg total) by mouth daily. [facility] furosemide (LASIX) 20 MG tablet 04-03 00:00: 00 04-03 00:00 :00 No 20mg QD Take 1 tablet (20 mg total) by mouth daily. [facility] lisinopriL (PRINIVIL,Z ESTRIL) 5 MG tablet 04-03 00:00: 00 04-03 00:00 :00 No 5mg QD Take 1 tablet (5 mg total) by mouth daily. [facility] aspirin 81 MG EC tablet 04-03 00:00: 00 04-03 00:00 :00 No 81mg QD Take 1 tablet (81 mg total) by mouth daily for 90 days. [facility] DULoxetine (CYMBALTA) 30 MG capsule 04-03 00:00: 00 04-03 00:00 :00 No 30mg QD Take 1 capsule (30 mg total) by mouth daily. [facility] aspirin 81 MG EC tablet 04-03 00:00: 00 04-03 00:00 :00 No 81mg QD Take 1 tablet (81 mg total) by mouth daily for 90 days. [facility] DULoxetine (CYMBALTA) 30 MG capsule 04-03 00:00: 00 04-03 00:00 :00 No 30mg QD Take 1 capsule (30 mg total) by mouth daily. [facility] furosemide (LASIX) 20 MG tablet 04-03 00:00: 00 04-03 00:00 :00 No 20mg QD Take 1 tablet (20 mg total) by mouth daily. [facility] furosemide (LASIX) 20 MG tablet 04-03 00:00: 00 04-03 00:00 :00 No 20mg QD Take 1 tablet (20 mg total) by mouth daily. [facility] lisinopriL (PRINIVIL,Z ESTRIL) 5 MG tablet 04-03 00:00: 00 04-03 00:00 :00 No 5mg QD Take 1 tablet (5 mg total) by mouth daily. [facility] lisinopriL (PRINIVIL,Z ESTRIL) 5 MG tablet 04-03 00:00: 00 04-03 00:00 :00 No 5mg QD Take 1 tablet (5 mg total) by mouth daily. [facility] aspirin 81 MG EC tablet 04-03 00:00: 00 04-03 00:00 :00 No 81mg QD Take 1 tablet (81 mg total) by mouth daily for 90 days. [facility] DULoxetine (CYMBALTA) 30 MG capsule 04-03 00:00: 00 04-03 00:00 :00 No 30mg QD Take 1 capsule (30 mg total) by mouth daily. [facility] furosemide (LASIX) 20 MG tablet 04-03 00:00: 00 04-03 00:00 :00 No 20mg QD Take 1 tablet (20 mg total) by mouth daily. [facility] lisinopriL (PRINIVIL,Z ESTRIL) 5 MG tablet 04-03 00:00: 00 04-03 00:00 :00 No 5mg QD Take 1 tablet (5 mg total) by mouth daily. [facility] aspirin 81 MG EC tablet 04-03 00:00: 00 04-03 00:00 :00 No 81mg QD Take 1 tablet (81 mg total) by mouth daily for 90 days. [facility] DULoxetine (CYMBALTA) 30 MG capsule 04-03 00:00: 00 04-03 00:00 :00 No 30mg QD Take 1 capsule (30 mg total) by mouth daily. [facility] furosemide (LASIX) 20 MG tablet 04-03 00:00: 00 04-03 00:00 :00 No 20mg QD Take 1 tablet (20 mg total) by mouth daily. [facility] lisinopriL (PRINIVIL,Z ESTRIL) 5 MG tablet 04-03 00:00: 00 04-03 00:00 :00 No 5mg QD Take 1 tablet (5 mg total) by mouth daily. [facility] aspirin 81 MG EC tablet 04-03 00:00: 00 04-03 00:00 :00 No 81mg QD Take 1 tablet (81 mg total) by mouth daily for 90 days. [facility] DULoxetine (CYMBALTA) 30 MG capsule 04-03 00:00: 00 04-03 00:00 :00 No 30mg QD Take 1 capsule (30 mg total) by mouth daily. [facility] furosemide (LASIX) 20 MG tablet 04-03 00:00: 00 04-03 00:00 :00 No 20mg QD Take 1 tablet (20 mg total) by mouth daily. [facility] lisinopriL (PRINIVIL,Z ESTRIL) 5 MG tablet 04-03 00:00: 00 04-03 00:00 :00 No 5mg QD Take 1 tablet (5 mg total) by mouth daily. [facility] aspirin 81 MG EC tablet 04-03 00:00: 00 04-03 00:00 :00 No 81mg QD Take 1 tablet (81 mg total) by mouth daily for 90 days. [facility] DULoxetine (CYMBALTA) 30 MG capsule 04-03 00:00: 00 04-03 00:00 :00 No 30mg QD Take 1 capsule (30 mg total) by mouth daily. [facility] furosemide (LASIX) 20 MG tablet 04-03 00:00: 00 04-03 00:00 :00 No 20mg QD Take 1 tablet (20 mg total) by mouth daily. [facility] lisinopriL (PRINIVIL,Z ESTRIL) 5 MG tablet 04-03 00:00: 00 04-03 00:00 :00 No 5mg QD Take 1 tablet (5 mg total) by mouth daily. [facility] aspirin 81 MG EC tablet 04-03 00:00: 00 04-03 00:00 :00 No 81mg QD Take 1 tablet (81 mg total) by mouth daily for 90 days. [facility] DULoxetine (CYMBALTA) 30 MG capsule 04-03 00:00: 00 04-03 00:00 :00 No 30mg QD Take 1 capsule (30 mg total) by mouth daily. [facility] furosemide (LASIX) 20 MG tablet 04-03 00:00: 00 04-03 00:00 :00 No 20mg QD Take 1 tablet (20 mg total) by mouth daily. [facility] lisinopriL (PRINIVIL,Z ESTRIL) 5 MG tablet 04-03 00:00: 00 04-03 00:00 :00 No 5mg QD Take 1 tablet (5 mg total) by mouth daily. [facility] aspirin 81 MG EC tablet 04-03 00:00: 00 04-03 00:00 :00 No 81mg QD Take 1 tablet (81 mg total) by mouth daily for 90 days. [facility] DULoxetine (CYMBALTA) 30 MG capsule 04-03 00:00: 00 04-03 00:00 :00 No 30mg QD Take 1 capsule (30 mg total) by mouth daily. [facility] furosemide (LASIX) 20 MG tablet 04-03 00:00: 00 04-03 00:00 :00 No 20mg QD Take 1 tablet (20 mg total) by mouth daily. [facility] lisinopriL (PRINIVIL,Z ESTRIL) 5 MG tablet 04-03 00:00: 00 04-03 00:00 :00 No 5mg QD Take 1 tablet (5 mg total) by mouth daily. [facility] aspirin 81 MG EC tablet 04-03 00:00: 00 04-03 00:00 :00 No 81mg QD Take 1 tablet (81 mg total) by mouth daily for 90 days. [facility] DULoxetine (CYMBALTA) 30 MG capsule 04-03 00:00: 00 04-03 00:00 :00 No 30mg QD Take 1 capsule (30 mg total) by mouth daily. [facility] furosemide (LASIX) 20 MG tablet 04-03 00:00: 00 04-03 00:00 :00 No 20mg QD Take 1 tablet (20 mg total) by mouth daily. [facility] lisinopriL (PRINIVIL,Z ESTRIL) 5 MG tablet 04-03 00:00: 00 04-03 00:00 :00 No 5mg QD Take 1 tablet (5 mg total) by mouth daily. [facility] aspirin 81 MG EC tablet 04-03 00:00: 00 04-03 00:00 :00 No 81mg QD Take 1 tablet (81 mg total) by mouth daily for 90 days. [facility] DULoxetine (CYMBALTA) 30 MG capsule 04-03 00:00: 00 04-03 00:00 :00 No 30mg QD Take 1 capsule (30 mg total) by mouth daily. [facility] furosemide (LASIX) 20 MG tablet 04-03 00:00: 00 04-03 00:00 :00 No 20mg QD Take 1 tablet (20 mg total) by mouth daily. [facility] lisinopriL (PRINIVIL,Z ESTRIL) 5 MG tablet 04-03 00:00: 00 04-03 00:00 :00 No 5mg QD Take 1 tablet (5 mg total) by mouth daily. [facility] aspirin 81 MG EC tablet 04-03 00:00: 00 04-03 00:00 :00 No 81mg QD Take 1 tablet (81 mg total) by mouth daily for 90 days. [facility] DULoxetine (CYMBALTA) 30 MG capsule 04-03 00:00: 00 04-03 00:00 :00 No 30mg QD Take 1 capsule (30 mg total) by mouth daily. [facility] furosemide (LASIX) 20 MG tablet 04-03 00:00: 00 04-03 00:00 :00 No 20mg QD Take 1 tablet (20 mg total) by mouth daily. [facility] lisinopriL (PRINIVIL,Z ESTRIL) 5 MG tablet 04-03 00:00: 00 04-03 00:00 :00 No 5mg QD Take 1 tablet (5 mg total) by mouth daily. [facility] aspirin 81 MG EC tablet 04-03 00:00: 00 04-03 00:00 :00 No 81mg QD Take 1 tablet (81 mg total) by mouth daily for 90 days. [facility] DULoxetine (CYMBALTA) 30 MG capsule 04-03 00:00: 00 04-03 00:00 :00 No 30mg QD Take 1 capsule (30 mg total) by mouth daily. [facility] furosemide (LASIX) 20 MG tablet 04-03 00:00: 00 04-03 00:00 :00 No 20mg QD Take 1 tablet (20 mg total) by mouth daily. [facility] gabapentin (NEURONTIN) 300 MG capsule 04-02 00:00: 00 04-03 00:00 :00 No 300mg Q.[id number] 3D Take 1 capsule (300 mg total) by mouth 3 (three) times daily for 90 days. [facility] divalproex (DEPAKOTE) 500 MG EC tablet 04-02 00:00: 00 04-03 00:00 :00 No 500mg Q.5D Take 1 tablet (500 mg total) by mouth 2 (two) times daily for 90 days. [facility] clonazePAM (KlonoPIN) 0.5 MG tablet 04-02 00:00: 00 04-03 00:00 :00 No .25mg Take 0.5 tablets (0.25 mg total) by mouth 2 (two) times daily as needed for Anxiety for up to 30 days. Max Daily Amount: 0.5 mg [facility] gabapentin (NEURONTIN) 300 MG capsule 04-02 00:00: 00 04-03 00:00 :00 No 300mg Q.[id number] 3D Take 1 capsule (300 mg total) by mouth 3 (three) times daily for 90 days. [facility] HYDROcodone -acetaminop hen (NORCO 10-325) 10-325 mg per tablet 04-02 00:00: 00 04-03 00:00 :00 No 1{tbl} Take 1 tablet by mouth every 6 (six) hours as needed for up to 10 days. Max Daily Amount: 4 tablets [facility] HYDROcodone -acetaminop hen (NORCO 10-325) 10-325 mg per tablet 04-02 00:00: 00 04-03 00:00 :00 No 1{tbl} Take 1 tablet by mouth every 6 (six) hours as needed for up to 10 days. Max Daily Amount: 4 tablets [facility] methocarbam oL (ROBAXIN) 500 MG tablet 04-02 00:00: 00 04-03 00:00 :00 No 500mg Q.25D Take 1 tablet (500 mg total) by mouth 4 (four) times daily for 10 days. [facility] methocarbam oL (ROBAXIN) 500 MG tablet 04-02 00:00: 00 04-03 00:00 :00 No 500mg Q.25D Take 1 tablet (500 mg total) by mouth 4 (four) times daily for 10 days. [facility] divalproex (DEPAKOTE) 500 MG EC tablet 04-02 00:00: 00 04-03 00:00 :00 No 500mg Q.5D Take 1 tablet (500 mg total) by mouth 2 (two) times daily for 90 days. [facility] clonazePAM (KlonoPIN) 0.5 MG tablet 04-02 00:00: 00 04-03 00:00 :00 No .25mg Take 0.5 tablets (0.25 mg total) by mouth 2 (two) times daily as needed for Anxiety for up to 30 days. Max Daily Amount: 0.5 mg [facility] gabapentin (NEURONTIN) 300 MG capsule 04-02 00:00: 00 04-03 00:00 :00 No 300mg Q.[id number] 3D Take 1 capsule (300 mg total) by mouth 3 (three) times daily for 90 days. [facility] HYDROcodone -acetaminop hen (NORCO 10-325) 10-325 mg per tablet 04-02 00:00: 00 04-03 00:00 :00 No 1{tbl} Take 1 tablet by mouth every 6 (six) hours as needed for up to 10 days. Max Daily Amount: 4 tablets [facility] methocarbam oL (ROBAXIN) 500 MG tablet 04-02 00:00: 00 04-03 00:00 :00 No 500mg Q.25D Take 1 tablet (500 mg total) by mouth 4 (four) times daily for 10 days. [facility] divalproex (DEPAKOTE) 500 MG EC tablet 04-02 00:00: 00 04-03 00:00 :00 No 500mg Q.5D Take 1 tablet (500 mg total) by mouth 2 (two) times daily for 90 days. [facility] clonazePAM (KlonoPIN) 0.5 MG tablet 04-02 00:00: 00 04-03 00:00 :00 No .25mg Take 0.5 tablets (0.25 mg total) by mouth 2 (two) times daily as needed for Anxiety for up to 30 days. Max Daily Amount: 0.5 mg [facility] gabapentin (NEURONTIN) 300 MG capsule 04-02 00:00: 00 04-03 00:00 :00 No 300mg Q.[id number] 3D Take 1 capsule (300 mg total) by mouth 3 (three) times daily for 90 days. [facility] HYDROcodone -acetaminop hen (NORCO 10-325) 10-325 mg per tablet 04-02 00:00: 00 04-03 00:00 :00 No 1{tbl} Take 1 tablet by mouth every 6 (six) hours as needed for up to 10 days. Max Daily Amount: 4 tablets [facility] methocarbam oL (ROBAXIN) 500 MG tablet 04-02 00:00: 00 04-03 00:00 :00 No 500mg Q.25D Take 1 tablet (500 mg total) by mouth 4 (four) times daily for 10 days. [facility] divalproex (DEPAKOTE) 500 MG EC tablet 04-02 00:00: 00 04-03 00:00 :00 No 500mg Q.5D Take 1 tablet (500 mg total) by mouth 2 (two) times daily for 90 days. [facility] clonazePAM (KlonoPIN) 0.5 MG tablet 04-02 00:00: 00 04-03 00:00 :00 No .25mg Take 0.5 tablets (0.25 mg total) by mouth 2 (two) times daily as needed for Anxiety for up to 30 days. Max Daily Amount: 0.5 mg [facility] gabapentin (NEURONTIN) 300 MG capsule 04-02 00:00: 00 04-03 00:00 :00 No 300mg Q.[id number] 3D Take 1 capsule (300 mg total) by mouth 3 (three) times daily for 90 days. [facility] HYDROcodone -acetaminop hen (NORCO 10-325) 10-325 mg per tablet 04-02 00:00: 00 04-03 00:00 :00 No 1{tbl} Take 1 tablet by mouth every 6 (six) hours as needed for up to 10 days. Max Daily Amount: 4 tablets [facility] methocarbam oL (ROBAXIN) 500 MG tablet 04-02 00:00: 00 04-03 00:00 :00 No 500mg Q.25D Take 1 tablet (500 mg total) by mouth 4 (four) times daily for 10 days. [facility] divalproex (DEPAKOTE) 500 MG EC tablet 04-02 00:00: 00 04-03 00:00 :00 No 500mg Q.5D Take 1 tablet (500 mg total) by mouth 2 (two) times daily for 90 days. [facility] clonazePAM (KlonoPIN) 0.5 MG tablet 04-02 00:00: 00 04-03 00:00 :00 No .25mg Take 0.5 tablets (0.25 mg total) by mouth 2 (two) times daily as needed for Anxiety for up to 30 days. Max Daily Amount: 0.5 mg [facility] gabapentin (NEURONTIN) 300 MG capsule 04-02 00:00: 00 04-03 00:00 :00 No 300mg Q.[id number] 3D Take 1 capsule (300 mg total) by mouth 3 (three) times daily for 90 days. [facility] HYDROcodone -acetaminop hen (NORCO 10-325) 10-325 mg per tablet 04-02 00:00: 00 04-03 00:00 :00 No 1{tbl} Take 1 tablet by mouth every 6 (six) hours as needed for up to 10 days. Max Daily Amount: 4 tablets [facility] methocarbam oL (ROBAXIN) 500 MG tablet 04-02 00:00: 00 04-03 00:00 :00 No 500mg Q.25D Take 1 tablet (500 mg total) by mouth 4 (four) times daily for 10 days. [facility] divalproex (DEPAKOTE) 500 MG EC tablet 04-02 00:00: 00 04-03 00:00 :00 No 500mg Q.5D Take 1 tablet (500 mg total) by mouth 2 (two) times daily for 90 days. [facility] clonazePAM (KlonoPIN) 0.5 MG tablet 04-02 00:00: 00 04-03 00:00 :00 No .25mg Take 0.5 tablets (0.25 mg total) by mouth 2 (two) times daily as needed for Anxiety for up to 30 days. Max Daily Amount: 0.5 mg [facility] gabapentin (NEURONTIN) 300 MG capsule 04-02 00:00: 00 04-03 00:00 :00 No 300mg Q.[id number] 3D Take 1 capsule (300 mg total) by mouth 3 (three) times daily for 90 days. [facility] HYDROcodone -acetaminop hen (NORCO 10-325) 10-325 mg per tablet 04-02 00:00: 00 04-03 00:00 :00 No 1{tbl} Take 1 tablet by mouth every 6 (six) hours as needed for up to 10 days. Max Daily Amount: 4 tablets [facility] methocarbam oL (ROBAXIN) 500 MG tablet 04-02 00:00: 00 04-03 00:00 :00 No 500mg Q.25D Take 1 tablet (500 mg total) by mouth 4 (four) times daily for 10 days. [facility] divalproex (DEPAKOTE) 500 MG EC tablet 04-02 00:00: 00 04-03 00:00 :00 No 500mg Q.5D Take 1 tablet (500 mg total) by mouth 2 (two) times daily for 90 days. [facility] clonazePAM (KlonoPIN) 0.5 MG tablet 04-02 00:00: 00 04-03 00:00 :00 No .25mg Take 0.5 tablets (0.25 mg total) by mouth 2 (two) times daily as needed for Anxiety for up to 30 days. Max Daily Amount: 0.5 mg [facility] gabapentin (NEURONTIN) 300 MG capsule 04-02 00:00: 00 04-03 00:00 :00 No 300mg Q.[id number] 3D Take 1 capsule (300 mg total) by mouth 3 (three) times daily for 90 days. [facility] divalproex (DEPAKOTE) 500 MG EC tablet 04-02 00:00: 00 04-03 00:00 :00 No 500mg Q.5D Take 1 tablet (500 mg total) by mouth 2 (two) times daily for 90 days. [facility] clonazePAM (KlonoPIN) 0.5 MG tablet 04-02 00:00: 00 04-03 00:00 :00 No .25mg Take 0.5 tablets (0.25 mg total) by mouth 2 (two) times daily as needed for Anxiety for up to 30 days. Max Daily Amount: 0.5 mg [facility] gabapentin (NEURONTIN) 300 MG capsule 04-02 00:00: 00 04-03 00:00 :00 No 300mg Q.[id number] 3D Take 1 capsule (300 mg total) by mouth 3 (three) times daily for 90 days. [facility] HYDROcodone -acetaminop hen (NORCO 10-325) 10-325 mg per tablet 04-02 00:00: 00 04-03 00:00 :00 No 1{tbl} Take 1 tablet by mouth every 6 (six) hours as needed for up to 10 days. Max Daily Amount: 4 tablets [facility] HYDROcodone -acetaminop hen (NORCO 10-325) 10-325 mg per tablet 04-02 00:00: 00 04-03 00:00 :00 No 1{tbl} Take 1 tablet by mouth every 6 (six) hours as needed for up to 10 days. Max Daily Amount: 4 tablets [facility] methocarbam oL (ROBAXIN) 500 MG tablet 04-02 00:00: 00 04-03 00:00 :00 No 500mg Q.25D Take 1 tablet (500 mg total) by mouth 4 (four) times daily for 10 days. [facility] methocarbam oL (ROBAXIN) 500 MG tablet 04-02 00:00: 00 04-03 00:00 :00 No 500mg Q.25D Take 1 tablet (500 mg total) by mouth 4 (four) times daily for 10 days. [facility] divalproex (DEPAKOTE) 500 MG EC tablet 04-02 00:00: 00 04-03 00:00 :00 No 500mg Q.5D Take 1 tablet (500 mg total) by mouth 2 (two) times daily for 90 days. [facility] clonazePAM (KlonoPIN) 0.5 MG tablet 04-02 00:00: 00 04-03 00:00 :00 No .25mg Take 0.5 tablets (0.25 mg total) by mouth 2 (two) times daily as needed for Anxiety for up to 30 days. Max Daily Amount: 0.5 mg [facility] gabapentin (NEURONTIN) 300 MG capsule 04-02 00:00: 00 04-03 00:00 :00 No 300mg Q.[id number] 3D Take 1 capsule (300 mg total) by mouth 3 (three) times daily for 90 days. [facility] HYDROcodone -acetaminop hen (NORCO 10-325) 10-325 mg per tablet 04-02 00:00: 00 04-03 00:00 :00 No 1{tbl} Take 1 tablet by mouth every 6 (six) hours as needed for up to 10 days. Max Daily Amount: 4 tablets [facility] methocarbam oL (ROBAXIN) 500 MG tablet 04-02 00:00: 00 04-03 00:00 :00 No 500mg Q.25D Take 1 tablet (500 mg total) by mouth 4 (four) times daily for 10 days. [facility] divalproex (DEPAKOTE) 500 MG EC tablet 04-02 00:00: 00 04-03 00:00 :00 No 500mg Q.5D Take 1 tablet (500 mg total) by mouth 2 (two) times daily for 90 days. [facility] clonazePAM (KlonoPIN) 0.5 MG tablet 04-02 00:00: 00 04-03 00:00 :00 No .25mg Take 0.5 tablets (0.25 mg total) by mouth 2 (two) times daily as needed for Anxiety for up to 30 days. Max Daily Amount: 0.5 mg [facility] gabapentin (NEURONTIN) 300 MG capsule 04-02 00:00: 00 04-03 00:00 :00 No 300mg Q.[id number] 3D Take 1 capsule (300 mg total) by mouth 3 (three) times daily for 90 days. [facility] HYDROcodone -acetaminop hen (NORCO 10-325) 10-325 mg per tablet 04-02 00:00: 00 04-03 00:00 :00 No 1{tbl} Take 1 tablet by mouth every 6 (six) hours as needed for up to 10 days. Max Daily Amount: 4 tablets [facility] methocarbam oL (ROBAXIN) 500 MG tablet 04-02 00:00: 00 04-03 00:00 :00 No 500mg Q.25D Take 1 tablet (500 mg total) by mouth 4 (four) times daily for 10 days. [facility] divalproex (DEPAKOTE) 500 MG EC tablet 04-02 00:00: 00 04-03 00:00 :00 No 500mg Q.5D Take 1 tablet (500 mg total) by mouth 2 (two) times daily for 90 days. [facility] clonazePAM (KlonoPIN) 0.5 MG tablet 04-02 00:00: 00 04-03 00:00 :00 No .25mg Take 0.5 tablets (0.25 mg total) by mouth 2 (two) times daily as needed for Anxiety for up to 30 days. Max Daily Amount: 0.5 mg [facility] gabapentin (NEURONTIN) 300 MG capsule 04-02 00:00: 00 04-03 00:00 :00 No 300mg Q.[id number] 3D Take 1 capsule (300 mg total) by mouth 3 (three) times daily for 90 days. [facility] HYDROcodone -acetaminop hen (NORCO 10-325) 10-325 mg per tablet 04-02 00:00: 00 04-03 00:00 :00 No 1{tbl} Take 1 tablet by mouth every 6 (six) hours as needed for up to 10 days. Max Daily Amount: 4 tablets [facility] methocarbam oL (ROBAXIN) 500 MG tablet 04-02 00:00: 00 04-03 00:00 :00 No 500mg Q.25D Take 1 tablet (500 mg total) by mouth 4 (four) times daily for 10 days. [facility] divalproex (DEPAKOTE) 500 MG EC tablet 04-02 00:00: 00 04-03 00:00 :00 No 500mg Q.5D Take 1 tablet (500 mg total) by mouth 2 (two) times daily for 90 days. [facility] clonazePAM (KlonoPIN) 0.5 MG tablet 04-02 00:00: 00 04-03 00:00 :00 No .25mg Take 0.5 tablets (0.25 mg total) by mouth 2 (two) times daily as needed for Anxiety for up to 30 days. Max Daily Amount: 0.5 mg [facility] gabapentin (NEURONTIN) 300 MG capsule 04-02 00:00: 00 04-03 00:00 :00 No 300mg Q.[id number] 3D Take 1 capsule (300 mg total) by mouth 3 (three) times daily for 90 days. [facility] HYDROcodone -acetaminop hen (NORCO 10-325) 10-325 mg per tablet 04-02 00:00: 00 04-03 00:00 :00 No 1{tbl} Take 1 tablet by mouth every 6 (six) hours as needed for up to 10 days. Max Daily Amount: 4 tablets [facility] methocarbam oL (ROBAXIN) 500 MG tablet 04-02 00:00: 00 04-03 00:00 :00 No 500mg Q.25D Take 1 tablet (500 mg total) by mouth 4 (four) times daily for 10 days. [facility] divalproex (DEPAKOTE) 500 MG EC tablet 04-02 00:00: 00 04-03 00:00 :00 No 500mg Q.5D Take 1 tablet (500 mg total) by mouth 2 (two) times daily for 90 days. [facility] clonazePAM (KlonoPIN) 0.5 MG tablet 04-02 00:00: 00 04-03 00:00 :00 No .25mg Take 0.5 tablets (0.25 mg total) by mouth 2 (two) times daily as needed for Anxiety for up to 30 days. Max Daily Amount: 0.5 mg [facility] gabapentin (NEURONTIN) 300 MG capsule 04-02 00:00: 00 04-03 00:00 :00 No 300mg Q.[id number] 3D Take 1 capsule (300 mg total) by mouth 3 (three) times daily for 90 days. [facility] HYDROcodone -acetaminop hen (NORCO 10-325) 10-325 mg per tablet 04-02 00:00: 00 04-03 00:00 :00 No 1{tbl} Take 1 tablet by mouth every 6 (six) hours as needed for up to 10 days. Max Daily Amount: 4 tablets [facility] methocarbam oL (ROBAXIN) 500 MG tablet 04-02 00:00: 00 04-03 00:00 :00 No 500mg Q.25D Take 1 tablet (500 mg total) by mouth 4 (four) times daily for 10 days. [facility] divalproex (DEPAKOTE) 500 MG EC tablet 04-02 00:00: 00 04-03 00:00 :00 No 500mg Q.5D Take 1 tablet (500 mg total) by mouth 2 (two) times daily for 90 days. [facility] clonazePAM (KlonoPIN) 0.5 MG tablet 04-02 00:00: 00 04-03 00:00 :00 No .25mg Take 0.5 tablets (0.25 mg total) by mouth 2 (two) times daily as needed for Anxiety for up to 30 days. Max Daily Amount: 0.5 mg [facility] divalproex (DEPAKOTE) 500 MG EC tablet 04-02 00:00: 00 04-03 00:00 :00 No 500mg Q.5D Take 1 tablet (500 mg total) by mouth 2 (two) times daily for 90 days. [facility] clonazePAM (KlonoPIN) 0.5 MG tablet 04-02 00:00: 00 04-03 00:00 :00 No .25mg Take 0.5 tablets (0.25 mg total) by mouth 2 (two) times daily as needed for Anxiety for up to 30 days. Max Daily Amount: 0.5 mg [facility] gabapentin (NEURONTIN) 300 MG capsule 04-02 00:00: 00 04-03 00:00 :00 No 300mg Q.[id number] 3D Take 1 capsule (300 mg total) by mouth 3 (three) times daily for 90 days. [facility] HYDROcodone -acetaminop hen (NORCO 10-325) 10-325 mg per tablet 04-02 00:00: 00 04-03 00:00 :00 No 1{tbl} Take 1 tablet by mouth every 6 (six) hours as needed for up to 10 days. Max Daily Amount: 4 tablets [facility] methocarbam oL (ROBAXIN) 500 MG tablet 04-02 00:00: 00 04-03 00:00 :00 No 500mg Q.25D Take 1 tablet (500 mg total) by mouth 4 (four) times daily for 10 days. [facility] gabapentin (NEURONTIN) 300 MG capsule 04-02 00:00: 00 04-03 00:00 :00 No 300mg Q.[id number] 3D Take 1 capsule (300 mg total) by mouth 3 (three) times daily for 90 days. [facility] HYDROcodone -acetaminop hen (NORCO 10-325) 10-325 mg per tablet 04-02 00:00: 00 04-03 00:00 :00 No 1{tbl} Take 1 tablet by mouth every 6 (six) hours as needed for up to 10 days. Max Daily Amount: 4 tablets [facility] methocarbam oL (ROBAXIN) 500 MG tablet 04-02 00:00: 00 04-03 00:00 :00 No 500mg Q.25D Take 1 tablet (500 mg total) by mouth 4 (four) times daily for 10 days. [facility] divalproex (DEPAKOTE) 500 MG EC tablet 04-02 00:00: 00 04-03 00:00 :00 No 500mg Q.5D Take 1 tablet (500 mg total) by mouth 2 (two) times daily for 90 days. [facility] clonazePAM (KlonoPIN) 0.5 MG tablet 04-02 00:00: 00 04-03 00:00 :00 No .25mg Take 0.5 tablets (0.25 mg total) by mouth 2 (two) times daily as needed for Anxiety for up to 30 days. Max Daily Amount: 0.5 mg [facility] gabapentin (NEURONTIN) 300 MG capsule 04-02 00:00: 00 04-03 00:00 :00 No 300mg Q.[id number] 3D Take 1 capsule (300 mg total) by mouth 3 (three) times daily for 90 days. [facility] HYDROcodone -acetaminop hen (NORCO 10-325) 10-325 mg per tablet 04-02 00:00: 00 04-03 00:00 :00 No 1{tbl} Take 1 tablet by mouth every 6 (six) hours as needed for up to 10 days. Max Daily Amount: 4 tablets [facility] methocarbam oL (ROBAXIN) 500 MG tablet 04-02 00:00: 00 04-03 00:00 :00 No 500mg Q.25D Take 1 tablet (500 mg total) by mouth 4 (four) times daily for 10 days. [facility] divalproex (DEPAKOTE) 500 MG EC tablet 04-02 00:00: 00 04-03 00:00 :00 No 500mg Q.5D Take 1 tablet (500 mg total) by mouth 2 (two) times daily for 90 days. [facility] clonazePAM (KlonoPIN) 0.5 MG tablet 04-02 00:00: 00 04-03 00:00 :00 No .25mg Take 0.5 tablets (0.25 mg total) by mouth 2 (two) times daily as needed for Anxiety for up to 30 days. Max Daily Amount: 0.5 mg [facility] gabapentin (NEURONTIN) 300 MG capsule 04-02 00:00: 00 04-03 00:00 :00 No 300mg Q.[id number] 3D Take 1 capsule (300 mg total) by mouth 3 (three) times daily for 90 days. [facility] HYDROcodone -acetaminop hen (NORCO 10-325) 10-325 mg per tablet 04-02 00:00: 00 04-03 00:00 :00 No 1{tbl} Take 1 tablet by mouth every 6 (six) hours as needed for up to 10 days. Max Daily Amount: 4 tablets [facility] methocarbam oL (ROBAXIN) 500 MG tablet 04-02 00:00: 00 04-03 00:00 :00 No 500mg Q.25D Take 1 tablet (500 mg total) by mouth 4 (four) times daily for 10 days. [facility] divalproex (DEPAKOTE) 500 MG EC tablet 04-02 00:00: 00 04-03 00:00 :00 No 500mg Q.5D Take 1 tablet (500 mg total) by mouth 2 (two) times daily for 90 days. [facility] clonazePAM (KlonoPIN) 0.5 MG tablet 04-02 00:00: 00 04-03 00:00 :00 No .25mg Take 0.5 tablets (0.25 mg total) by mouth 2 (two) times daily as needed for Anxiety for up to 30 days. Max Daily Amount: 0.5 mg [facility] gabapentin (NEURONTIN) 300 MG capsule 04-02 00:00: 00 04-03 00:00 :00 No 300mg Q.[id number] 3D Take 1 capsule (300 mg total) by mouth 3 (three) times daily for 90 days. [facility] HYDROcodone -acetaminop hen (NORCO 10-325) 10-325 mg per tablet 04-02 00:00: 00 04-03 00:00 :00 No 1{tbl} Take 1 tablet by mouth every 6 (six) hours as needed for up to 10 days. Max Daily Amount: 4 tablets [facility] methocarbam oL (ROBAXIN) 500 MG tablet 04-02 00:00: 00 04-03 00:00 :00 No 500mg Q.25D Take 1 tablet (500 mg total) by mouth 4 (four) times daily for 10 days. [facility] divalproex (DEPAKOTE) 500 MG EC tablet 04-02 00:00: 00 04-03 00:00 :00 No 500mg Q.5D Take 1 tablet (500 mg total) by mouth 2 (two) times daily for 90 days. [facility] clonazePAM (KlonoPIN) 0.5 MG tablet 04-02 00:00: 00 04-03 00:00 :00 No .25mg Take 0.5 tablets (0.25 mg total) by mouth 2 (two) times daily as needed for Anxiety for up to 30 days. Max Daily Amount: 0.5 mg [facility] gabapentin (NEURONTIN) 300 MG capsule 04-02 00:00: 00 04-03 00:00 :00 No 300mg Q.[id number] 3D Take 1 capsule (300 mg total) by mouth 3 (three) times daily for 90 days. [facility] HYDROcodone -acetaminop hen (NORCO 10-325) 10-325 mg per tablet 04-02 00:00: 00 04-03 00:00 :00 No 1{tbl} Take 1 tablet by mouth every 6 (six) hours as needed for up to 10 days. Max Daily Amount: 4 tablets [facility] methocarbam oL (ROBAXIN) 500 MG tablet 04-02 00:00: 00 04-03 00:00 :00 No 500mg Q.25D Take 1 tablet (500 mg total) by mouth 4 (four) times daily for 10 days. [facility] divalproex (DEPAKOTE) 500 MG EC tablet 04-02 00:00: 00 04-03 00:00 :00 No 500mg Q.5D Take 1 tablet (500 mg total) by mouth 2 (two) times daily for 90 days. [facility] clonazePAM (KlonoPIN) 0.5 MG tablet 04-02 00:00: 00 04-03 00:00 :00 No .25mg Take 0.5 tablets (0.25 mg total) by mouth 2 (two) times daily as needed for Anxiety for up to 30 days. Max Daily Amount: 0.5 mg [facility] gabapentin (NEURONTIN) 300 MG capsule 04-02 00:00: 00 04-03 00:00 :00 No 300mg Q.[id number] 3D Take 1 capsule (300 mg total) by mouth 3 (three) times daily for 90 days. [facility] HYDROcodone -acetaminop hen (NORCO 10-325) 10-325 mg per tablet 04-02 00:00: 00 04-03 00:00 :00 No 1{tbl} Take 1 tablet by mouth every 6 (six) hours as needed for up to 10 days. Max Daily Amount: 4 tablets [facility] methocarbam oL (ROBAXIN) 500 MG tablet 04-02 00:00: 00 04-03 00:00 :00 No 500mg Q.25D Take 1 tablet (500 mg total) by mouth 4 (four) times daily for 10 days. [facility] divalproex (DEPAKOTE) 500 MG EC tablet 04-02 00:00: 00 04-03 00:00 :00 No 500mg Q.5D Take 1 tablet (500 mg total) by mouth 2 (two) times daily for 90 days. [facility] divalproex (DEPAKOTE) 500 MG EC tablet 04-02 00:00: 00 04-03 00:00 :00 No 500mg Q.5D Take 1 tablet (500 mg total) by mouth 2 (two) times daily for 90 days. [facility] clonazePAM (KlonoPIN) 0.5 MG tablet 04-02 00:00: 00 04-03 00:00 :00 No .25mg Take 0.5 tablets (0.25 mg total) by mouth 2 (two) times daily as needed for Anxiety for up to 30 days. Max Daily Amount: 0.5 mg [facility] clonazePAM (KlonoPIN) 0.5 MG tablet 04-02 00:00: 00 04-03 00:00 :00 No .25mg Take 0.5 tablets (0.25 mg total) by mouth 2 (two) times daily as needed for Anxiety for up to 30 days. Max Daily Amount: 0.5 mg [facility] gabapentin (NEURONTIN) 300 MG capsule 04-02 00:00: 00 04-03 00:00 :00 No 300mg Q.[id number] 3D Take 1 capsule (300 mg total) by mouth 3 (three) times daily for 90 days. [facility] HYDROcodone -acetaminop hen (NORCO 10-325) 10-325 mg per tablet 04-02 00:00: 00 04-03 00:00 :00 No 1{tbl} Take 1 tablet by mouth every 6 (six) hours as needed for up to 10 days. Max Daily Amount: 4 tablets [facility] methocarbam oL (ROBAXIN) 500 MG tablet 04-02 00:00: 00 04-03 00:00 :00 No 500mg Q.25D Take 1 tablet (500 mg total) by mouth 4 (four) times daily for 10 days. [facility] gabapentin (NEURONTIN) 300 MG capsule 04-02 00:00: 00 04-03 00:00 :00 No 300mg Q.[id number] 3D Take 1 capsule (300 mg total) by mouth 3 (three) times daily for 90 days. [facility] HYDROcodone -acetaminop hen (NORCO 10-325) 10-325 mg per tablet 04-02 00:00: 00 04-03 00:00 :00 No 1{tbl} Take 1 tablet by mouth every 6 (six) hours as needed for up to 10 days. Max Daily Amount: 4 tablets [facility] methocarbam oL (ROBAXIN) 500 MG tablet 04-02 00:00: 00 04-03 00:00 :00 No 500mg Q.25D Take 1 tablet (500 mg total) by mouth 4 (four) times daily for 10 days. [facility] divalproex (DEPAKOTE) 500 MG EC tablet 04-02 00:00: 00 04-03 00:00 :00 No 500mg Q.5D Take 1 tablet (500 mg total) by mouth 2 (two) times daily for 90 days. [facility] clonazePAM (KlonoPIN) 0.5 MG tablet 04-02 00:00: 00 04-03 00:00 :00 No .25mg Take 0.5 tablets (0.25 mg total) by mouth 2 (two) times daily as needed for Anxiety for up to 30 days. Max Daily Amount: 0.5 mg [facility] gabapentin (NEURONTIN) 300 MG capsule 04-02 00:00: 00 04-03 00:00 :00 No 300mg Q.[id number] 3D Take 1 capsule (300 mg total) by mouth 3 (three) times daily for 90 days. [facility] HYDROcodone -acetaminop hen (NORCO 10-325) 10-325 mg per tablet 04-02 00:00: 00 04-03 00:00 :00 No 1{tbl} Take 1 tablet by mouth every 6 (six) hours as needed for up to 10 days. Max Daily Amount: 4 tablets [facility] methocarbam oL (ROBAXIN) 500 MG tablet 04-02 00:00: 00 04-03 00:00 :00 No 500mg Q.25D Take 1 tablet (500 mg total) by mouth 4 (four) times daily for 10 days. [facility] divalproex (DEPAKOTE) 500 MG EC tablet 04-02 00:00: 00 04-03 00:00 :00 No 500mg Q.5D Take 1 tablet (500 mg total) by mouth 2 (two) times daily for 90 days. [facility] clonazePAM (KlonoPIN) 0.5 MG tablet 04-02 00:00: 00 04-03 00:00 :00 No .25mg Take 0.5 tablets (0.25 mg total) by mouth 2 (two) times daily as needed for Anxiety for up to 30 days. Max Daily Amount: 0.5 mg [facility] gabapentin (NEURONTIN) 300 MG capsule 04-02 00:00: 00 04-03 00:00 :00 No 300mg Q.[id number] 3D Take 1 capsule (300 mg total) by mouth 3 (three) times daily for 90 days. [facility] HYDROcodone -acetaminop hen (NORCO 10-325) 10-325 mg per tablet 04-02 00:00: 00 04-03 00:00 :00 No 1{tbl} Take 1 tablet by mouth every 6 (six) hours as needed for up to 10 days. Max Daily Amount: 4 tablets [facility] methocarbam oL (ROBAXIN) 500 MG tablet 04-02 00:00: 00 04-03 00:00 :00 No 500mg Q.25D Take 1 tablet (500 mg total) by mouth 4 (four) times daily for 10 days. [facility] divalproex (DEPAKOTE) 500 MG EC tablet 04-02 00:00: 00 04-03 00:00 :00 No 500mg Q.5D Take 1 tablet (500 mg total) by mouth 2 (two) times daily for 90 days. [facility] clonazePAM (KlonoPIN) 0.5 MG tablet 04-02 00:00: 00 04-03 00:00 :00 No .25mg Take 0.5 tablets (0.25 mg total) by mouth 2 (two) times daily as needed for Anxiety for up to 30 days. Max Daily Amount: 0.5 mg [facility] gabapentin (NEURONTIN) 300 MG capsule 04-02 00:00: 00 04-03 00:00 :00 No 300mg Q.[id number] 3D Take 1 capsule (300 mg total) by mouth 3 (three) times daily for 90 days. [facility] HYDROcodone -acetaminop hen (NORCO 10-325) 10-325 mg per tablet 04-02 00:00: 00 04-03 00:00 :00 No 1{tbl} Take 1 tablet by mouth every 6 (six) hours as needed for up to 10 days. Max Daily Amount: 4 tablets [facility] methocarbam oL (ROBAXIN) 500 MG tablet 04-02 00:00: 00 04-03 00:00 :00 No 500mg Q.25D Take 1 tablet (500 mg total) by mouth 4 (four) times daily for 10 days. [facility] divalproex (DEPAKOTE) 500 MG EC tablet 04-02 00:00: 00 04-03 00:00 :00 No 500mg Q.5D Take 1 tablet (500 mg total) by mouth 2 (two) times daily for 90 days. [facility] clonazePAM (KlonoPIN) 0.5 MG tablet 04-02 00:00: 00 04-03 00:00 :00 No .25mg Take 0.5 tablets (0.25 mg total) by mouth 2 (two) times daily as needed for Anxiety for up to 30 days. Max Daily Amount: 0.5 mg [facility] divalproex (DEPAKOTE) 500 MG EC tablet 04-02 00:00: 00 04-03 00:00 :00 No 500mg Q.5D Take 1 tablet (500 mg total) by mouth 2 (two) times daily for 90 days. [facility] clonazePAM (KlonoPIN) 0.5 MG tablet 04-02 00:00: 00 04-03 00:00 :00 No .25mg Take 0.5 tablets (0.25 mg total) by mouth 2 (two) times daily as needed for Anxiety for up to 30 days. Max Daily Amount: 0.5 mg [facility] gabapentin (NEURONTIN) 300 MG capsule 04-02 00:00: 00 04-03 00:00 :00 No 300mg Q.[id number] 3D Take 1 capsule (300 mg total) by mouth 3 (three) times daily for 90 days. [facility] HYDROcodone -acetaminop hen (NORCO 10-325) 10-325 mg per tablet 04-02 00:00: 00 04-03 00:00 :00 No 1{tbl} Take 1 tablet by mouth every 6 (six) hours as needed for up to 10 days. Max Daily Amount: 4 tablets [facility] methocarbam oL (ROBAXIN) 500 MG tablet 04-02 00:00: 00 04-03 00:00 :00 No 500mg Q.25D Take 1 tablet (500 mg total) by mouth 4 (four) times daily for 10 days. [facility] gabapentin (NEURONTIN) 300 MG capsule 04-02 00:00: 00 04-03 00:00 :00 No 300mg Q.[id number] 3D Take 1 capsule (300 mg total) by mouth 3 (three) times daily for 90 days. [facility] HYDROcodone -acetaminop hen (NORCO 10-325) 10-325 mg per tablet 04-02 00:00: 00 04-03 00:00 :00 No 1{tbl} Take 1 tablet by mouth every 6 (six) hours as needed for up to 10 days. Max Daily Amount: 4 tablets [facility] methocarbam oL (ROBAXIN) 500 MG tablet 04-02 00:00: 00 04-03 00:00 :00 No 500mg Q.25D Take 1 tablet (500 mg total) by mouth 4 (four) times daily for 10 days. [facility] divalproex (DEPAKOTE) 500 MG EC tablet 04-02 00:00: 00 04-03 00:00 :00 No 500mg Q.5D Take 1 tablet (500 mg total) by mouth 2 (two) times daily for 90 days. [facility] clonazePAM (KlonoPIN) 0.5 MG tablet 04-02 00:00: 00 04-03 00:00 :00 No .25mg Take 0.5 tablets (0.25 mg total) by mouth 2 (two) times daily as needed for Anxiety for up to 30 days. Max Daily Amount: 0.5 mg [facility] gabapentin (NEURONTIN) 300 MG capsule 04-02 00:00: 00 04-03 00:00 :00 No 300mg Q.[id number] 3D Take 1 capsule (300 mg total) by mouth 3 (three) times daily for 90 days. [facility] HYDROcodone -acetaminop hen (NORCO 10-325) 10-325 mg per tablet 04-02 00:00: 00 04-03 00:00 :00 No 1{tbl} Take 1 tablet by mouth every 6 (six) hours as needed for up to 10 days. Max Daily Amount: 4 tablets [facility] methocarbam oL (ROBAXIN) 500 MG tablet 04-02 00:00: 00 04-03 00:00 :00 No 500mg Q.25D Take 1 tablet (500 mg total) by mouth 4 (four) times daily for 10 days. [facility] divalproex (DEPAKOTE) 500 MG EC tablet 04-02 00:00: 00 04-03 00:00 :00 No 500mg Q.5D Take 1 tablet (500 mg total) by mouth 2 (two) times daily for 90 days. [facility] clonazePAM (KlonoPIN) 0.5 MG tablet 04-02 00:00: 00 04-03 00:00 :00 No .25mg Take 0.5 tablets (0.25 mg total) by mouth 2 (two) times daily as needed for Anxiety for up to 30 days. Max Daily Amount: 0.5 mg [facility] gabapentin (NEURONTIN) 300 MG capsule 04-02 00:00: 00 04-03 00:00 :00 No 300mg Q.[id number] 3D Take 1 capsule (300 mg total) by mouth 3 (three) times daily for 90 days. [facility] HYDROcodone -acetaminop hen (NORCO 10-325) 10-325 mg per tablet 04-02 00:00: 00 04-03 00:00 :00 No 1{tbl} Take 1 tablet by mouth every 6 (six) hours as needed for up to 10 days. Max Daily Amount: 4 tablets [facility] methocarbam oL (ROBAXIN) 500 MG tablet 04-02 00:00: 00 04-03 00:00 :00 No 500mg Q.25D Take 1 tablet (500 mg total) by mouth 4 (four) times daily for 10 days. [facility] divalproex (DEPAKOTE) 500 MG EC tablet 04-02 00:00: 00 04-03 00:00 :00 No 500mg Q.5D Take 1 tablet (500 mg total) by mouth 2 (two) times daily for 90 days. [facility] clonazePAM (KlonoPIN) 0.5 MG tablet 04-02 00:00: 00 04-03 00:00 :00 No .25mg Take 0.5 tablets (0.25 mg total) by mouth 2 (two) times daily as needed for Anxiety for up to 30 days. Max Daily Amount: 0.5 mg [facility] gabapentin (NEURONTIN) 300 MG capsule 04-02 00:00: 00 04-03 00:00 :00 No 300mg Q.[id number] 3D Take 1 capsule (300 mg total) by mouth 3 (three) times daily for 90 days. [facility] HYDROcodone -acetaminop hen (NORCO 10-325) 10-325 mg per tablet 04-02 00:00: 00 04-03 00:00 :00 No 1{tbl} Take 1 tablet by mouth every 6 (six) hours as needed for up to 10 days. Max Daily Amount: 4 tablets [facility] methocarbam oL (ROBAXIN) 500 MG tablet 04-02 00:00: 00 04-03 00:00 :00 No 500mg Q.25D Take 1 tablet (500 mg total) by mouth 4 (four) times daily for 10 days. [facility] divalproex (DEPAKOTE) 500 MG EC tablet 04-02 00:00: 00 04-03 00:00 :00 No 500mg Q.5D Take 1 tablet (500 mg total) by mouth 2 (two) times daily for 90 days. [facility] clonazePAM (KlonoPIN) 0.5 MG tablet 04-02 00:00: 00 04-03 00:00 :00 No .25mg Take 0.5 tablets (0.25 mg total) by mouth 2 (two) times daily as needed for Anxiety for up to 30 days. Max Daily Amount: 0.5 mg [facility] gabapentin (NEURONTIN) 300 MG capsule 04-02 00:00: 00 04-03 00:00 :00 No 300mg Q.[id number] 3D Take 1 capsule (300 mg total) by mouth 3 (three) times daily for 90 days. [facility] HYDROcodone -acetaminop hen (NORCO 10-325) 10-325 mg per tablet 04-02 00:00: 00 04-03 00:00 :00 No 1{tbl} Take 1 tablet by mouth every 6 (six) hours as needed for up to 10 days. Max Daily Amount: 4 tablets [facility] methocarbam oL (ROBAXIN) 500 MG tablet 04-02 00:00: 00 04-03 00:00 :00 No 500mg Q.25D Take 1 tablet (500 mg total) by mouth 4 (four) times daily for 10 days. [facility] divalproex (DEPAKOTE) 500 MG EC tablet 04-02 00:00: 00 04-03 00:00 :00 No 500mg Q.5D Take 1 tablet (500 mg total) by mouth 2 (two) times daily for 90 days. [facility] clonazePAM (KlonoPIN) 0.5 MG tablet 04-02 00:00: 00 04-03 00:00 :00 No .25mg Take 0.5 tablets (0.25 mg total) by mouth 2 (two) times daily as needed for Anxiety for up to 30 days. Max Daily Amount: 0.5 mg [facility] gabapentin (NEURONTIN) 300 MG capsule 04-02 00:00: 00 04-03 00:00 :00 No 300mg Q.[id number] 3D Take 1 capsule (300 mg total) by mouth 3 (three) times daily for 90 days. [facility] HYDROcodone -acetaminop hen (NORCO 10-325) 10-325 mg per tablet 04-02 00:00: 00 04-03 00:00 :00 No 1{tbl} Take 1 tablet by mouth every 6 (six) hours as needed for up to 10 days. Max Daily Amount: 4 tablets [facility] methocarbam oL (ROBAXIN) 500 MG tablet 04-02 00:00: 00 04-03 00:00 :00 No 500mg Q.25D Take 1 tablet (500 mg total) by mouth 4 (four) times daily for 10 days. [facility] divalproex (DEPAKOTE) 500 MG EC tablet 04-02 00:00: 00 04-03 00:00 :00 No 500mg Q.5D Take 1 tablet (500 mg total) by mouth 2 (two) times daily for 90 days. [facility] clonazePAM (KlonoPIN) 0.5 MG tablet 04-02 00:00: 00 04-03 00:00 :00 No .25mg Take 0.5 tablets (0.25 mg total) by mouth 2 (two) times daily as needed for Anxiety for up to 30 days. Max Daily Amount: 0.5 mg [facility] divalproex (DEPAKOTE) 500 MG EC tablet 04-02 00:00: 00 04-03 00:00 :00 No 500mg Q.5D Take 1 tablet (500 mg total) by mouth 2 (two) times daily for 90 days. [facility] clonazePAM (KlonoPIN) 0.5 MG tablet 04-02 00:00: 00 04-03 00:00 :00 No .25mg Take 0.5 tablets (0.25 mg total) by mouth 2 (two) times daily as needed for Anxiety for up to 30 days. Max Daily Amount: 0.5 mg [facility] gabapentin (NEURONTIN) 300 MG capsule 04-02 00:00: 00 04-03 00:00 :00 No 300mg Q.[id number] 3D Take 1 capsule (300 mg total) by mouth 3 (three) times daily for 90 days. [facility] HYDROcodone -acetaminop hen (NORCO 10-325) 10-325 mg per tablet 04-02 00:00: 00 04-03 00:00 :00 No 1{tbl} Take 1 tablet by mouth every 6 (six) hours as needed for up to 10 days. Max Daily Amount: 4 tablets [facility] methocarbam oL (ROBAXIN) 500 MG tablet 04-02 00:00: 00 04-03 00:00 :00 No 500mg Q.25D Take 1 tablet (500 mg total) by mouth 4 (four) times daily for 10 days. [facility] gabapentin (NEURONTIN) 300 MG capsule 04-02 00:00: 00 04-03 00:00 :00 No 300mg Q.[id number] 3D Take 1 capsule (300 mg total) by mouth 3 (three) times daily for 90 days. [facility] HYDROcodone -acetaminop hen (NORCO 10-325) 10-325 mg per tablet 04-02 00:00: 00 04-03 00:00 :00 No 1{tbl} Take 1 tablet by mouth every 6 (six) hours as needed for up to 10 days. Max Daily Amount: 4 tablets [facility] methocarbam oL (ROBAXIN) 500 MG tablet 04-02 00:00: 00 04-03 00:00 :00 No 500mg Q.25D Take 1 tablet (500 mg total) by mouth 4 (four) times daily for 10 days. [facility] divalproex (DEPAKOTE) 500 MG EC tablet 04-02 00:00: 00 04-03 00:00 :00 No 500mg Q.5D Take 1 tablet (500 mg total) by mouth 2 (two) times daily for 90 days. [facility] clonazePAM (KlonoPIN) 0.5 MG tablet 04-02 00:00: 00 04-03 00:00 :00 No .25mg Take 0.5 tablets (0.25 mg total) by mouth 2 (two) times daily as needed for Anxiety for up to 30 days. Max Daily Amount: 0.5 mg [facility] gabapentin (NEURONTIN) 300 MG capsule 04-02 00:00: 00 04-03 00:00 :00 No 300mg Q.[id number] 3D Take 1 capsule (300 mg total) by mouth 3 (three) times daily for 90 days. [facility] HYDROcodone -acetaminop hen (NORCO 10-325) 10-325 mg per tablet 04-02 00:00: 00 04-03 00:00 :00 No 1{tbl} Take 1 tablet by mouth every 6 (six) hours as needed for up to 10 days. Max Daily Amount: 4 tablets [facility] methocarbam oL (ROBAXIN) 500 MG tablet 04-02 00:00: 00 04-03 00:00 :00 No 500mg Q.25D Take 1 tablet (500 mg total) by mouth 4 (four) times daily for 10 days. [facility] divalproex (DEPAKOTE) 500 MG EC tablet 04-02 00:00: 00 04-03 00:00 :00 No 500mg Q.5D Take 1 tablet (500 mg total) by mouth 2 (two) times daily for 90 days. [facility] clonazePAM (KlonoPIN) 0.5 MG tablet 04-02 00:00: 00 04-03 00:00 :00 No .25mg Take 0.5 tablets (0.25 mg total) by mouth 2 (two) times daily as needed for Anxiety for up to 30 days. Max Daily Amount: 0.5 mg [facility] gabapentin (NEURONTIN) 300 MG capsule 04-02 00:00: 00 04-03 00:00 :00 No 300mg Q.[id number] 3D Take 1 capsule (300 mg total) by mouth 3 (three) times daily for 90 days. [facility] HYDROcodone -acetaminop hen (NORCO 10-325) 10-325 mg per tablet 04-02 00:00: 00 04-03 00:00 :00 No 1{tbl} Take 1 tablet by mouth every 6 (six) hours as needed for up to 10 days. Max Daily Amount: 4 tablets [facility] methocarbam oL (ROBAXIN) 500 MG tablet 04-02 00:00: 00 04-03 00:00 :00 No 500mg Q.25D Take 1 tablet (500 mg total) by mouth 4 (four) times daily for 10 days. [facility] divalproex (DEPAKOTE) 500 MG EC tablet 04-02 00:00: 00 04-03 00:00 :00 No 500mg Q.5D Take 1 tablet (500 mg total) by mouth 2 (two) times daily for 90 days. [facility] clonazePAM (KlonoPIN) 0.5 MG tablet 04-02 00:00: 00 04-03 00:00 :00 No .25mg Take 0.5 tablets (0.25 mg total) by mouth 2 (two) times daily as needed for Anxiety for up to 30 days. Max Daily Amount: 0.5 mg [facility] gabapentin (NEURONTIN) 300 MG capsule 04-02 00:00: 00 04-03 00:00 :00 No 300mg Q.[id number] 3D Take 1 capsule (300 mg total) by mouth 3 (three) times daily for 90 days. [facility] HYDROcodone -acetaminop hen (NORCO 10-325) 10-325 mg per tablet 04-02 00:00: 00 04-03 00:00 :00 No 1{tbl} Take 1 tablet by mouth every 6 (six) hours as needed for up to 10 days. Max Daily Amount: 4 tablets [facility] methocarbam oL (ROBAXIN) 500 MG tablet 04-02 00:00: 00 04-03 00:00 :00 No 500mg Q.25D Take 1 tablet (500 mg total) by mouth 4 (four) times daily for 10 days. [facility] divalproex (DEPAKOTE) 500 MG EC tablet 04-02 00:00: 00 04-03 00:00 :00 No 500mg Q.5D Take 1 tablet (500 mg total) by mouth 2 (two) times daily for 90 days. [facility] clonazePAM (KlonoPIN) 0.5 MG tablet 04-02 00:00: 00 04-03 00:00 :00 No .25mg Take 0.5 tablets (0.25 mg total) by mouth 2 (two) times daily as needed for Anxiety for up to 30 days. Max Daily Amount: 0.5 mg [facility] gabapentin (NEURONTIN) 300 MG capsule 04-02 00:00: 00 04-03 00:00 :00 No 300mg Q.[id number] 3D Take 1 capsule (300 mg total) by mouth 3 (three) times daily for 90 days. [facility] HYDROcodone -acetaminop hen (NORCO 10-325) 10-325 mg per tablet 04-02 00:00: 00 04-03 00:00 :00 No 1{tbl} Take 1 tablet by mouth every 6 (six) hours as needed for up to 10 days. Max Daily Amount: 4 tablets [facility] methocarbam oL (ROBAXIN) 500 MG tablet 04-02 00:00: 00 04-03 00:00 :00 No 500mg Q.25D Take 1 tablet (500 mg total) by mouth 4 (four) times daily for 10 days. [facility] divalproex (DEPAKOTE) 500 MG EC tablet 04-02 00:00: 00 04-03 00:00 :00 No 500mg Q.5D Take 1 tablet (500 mg total) by mouth 2 (two) times daily for 90 days. [facility] clonazePAM (KlonoPIN) 0.5 MG tablet 04-02 00:00: 00 04-03 00:00 :00 No .25mg Take 0.5 tablets (0.25 mg total) by mouth 2 (two) times daily as needed for Anxiety for up to 30 days. Max Daily Amount: 0.5 mg [facility] gabapentin (NEURONTIN) 300 MG capsule 04-02 00:00: 00 04-03 00:00 :00 No 300mg Q.[id number] 3D Take 1 capsule (300 mg total) by mouth 3 (three) times daily for 90 days. [facility] HYDROcodone -acetaminop hen (NORCO 10-325) 10-325 mg per tablet 04-02 00:00: 00 04-03 00:00 :00 No 1{tbl} Take 1 tablet by mouth every 6 (six) hours as needed for up to 10 days. Max Daily Amount: 4 tablets [facility] methocarbam oL (ROBAXIN) 500 MG tablet 04-02 00:00: 00 04-03 00:00 :00 No 500mg Q.25D Take 1 tablet (500 mg total) by mouth 4 (four) times daily for 10 days. [facility] divalproex (DEPAKOTE) 500 MG EC tablet 04-02 00:00: 00 04-03 00:00 :00 No 500mg Q.5D Take 1 tablet (500 mg total) by mouth 2 (two) times daily for 90 days. [facility] clonazePAM (KlonoPIN) 0.5 MG tablet 04-02 00:00: 00 04-03 00:00 :00 No .25mg Take 0.5 tablets (0.25 mg total) by mouth 2 (two) times daily as needed for Anxiety for up to 30 days. Max Daily Amount: 0.5 mg [facility] gabapentin (NEURONTIN) 300 MG capsule 04-02 00:00: 00 04-03 00:00 :00 No 300mg Q.[id number] 3D Take 1 capsule (300 mg total) by mouth 3 (three) times daily for 90 days. [facility] HYDROcodone -acetaminop hen (NORCO 10-325) 10-325 mg per tablet 04-02 00:00: 00 04-03 00:00 :00 No 1{tbl} Take 1 tablet by mouth every 6 (six) hours as needed for up to 10 days. Max Daily Amount: 4 tablets [facility] methocarbam oL (ROBAXIN) 500 MG tablet 04-02 00:00: 00 04-03 00:00 :00 No 500mg Q.25D Take 1 tablet (500 mg total) by mouth 4 (four) times daily for 10 days. [facility] divalproex (DEPAKOTE) 500 MG EC tablet 04-02 00:00: 00 04-03 00:00 :00 No 500mg Q.5D Take 1 tablet (500 mg total) by mouth 2 (two) times daily for 90 days. [facility] clonazePAM (KlonoPIN) 0.5 MG tablet 04-02 00:00: 00 04-03 00:00 :00 No .25mg Take 0.5 tablets (0.25 mg total) by mouth 2 (two) times daily as needed for Anxiety for up to 30 days. Max Daily Amount: 0.5 mg [facility] gabapentin (NEURONTIN) 300 MG capsule 04-02 00:00: 00 04-03 00:00 :00 No 300mg Q.[id number] 3D Take 1 capsule (300 mg total) by mouth 3 (three) times daily for 90 days. [facility] HYDROcodone -acetaminop hen (NORCO 10-325) 10-325 mg per tablet 04-02 00:00: 00 04-03 00:00 :00 No 1{tbl} Take 1 tablet by mouth every 6 (six) hours as needed for up to 10 days. Max Daily Amount: 4 tablets [facility] methocarbam oL (ROBAXIN) 500 MG tablet 04-02 00:00: 00 04-03 00:00 :00 No 500mg Q.25D Take 1 tablet (500 mg total) by mouth 4 (four) times daily for 10 days. [facility] divalproex (DEPAKOTE) 500 MG EC tablet 04-02 00:00: 00 04-03 00:00 :00 No 500mg Q.5D Take 1 tablet (500 mg total) by mouth 2 (two) times daily for 90 days. [facility] clonazePAM (KlonoPIN) 0.5 MG tablet 04-02 00:00: 00 04-03 00:00 :00 No .25mg Take 0.5 tablets (0.25 mg total) by mouth 2 (two) times daily as needed for Anxiety for up to 30 days. Max Daily Amount: 0.5 mg [facility] gabapentin (NEURONTIN) 300 MG capsule 04-02 00:00: 00 04-03 00:00 :00 No 300mg Q.[id number] 3D Take 1 capsule (300 mg total) by mouth 3 (three) times daily for 90 days. [facility] HYDROcodone -acetaminop hen (NORCO 10-325) 10-325 mg per tablet 04-02 00:00: 00 04-03 00:00 :00 No 1{tbl} Take 1 tablet by mouth every 6 (six) hours as needed for up to 10 days. Max Daily Amount: 4 tablets [facility] methocarbam oL (ROBAXIN) 500 MG tablet 04-02 00:00: 00 04-03 00:00 :00 No 500mg Q.25D Take 1 tablet (500 mg total) by mouth 4 (four) times daily for 10 days. [facility] divalproex (DEPAKOTE) 500 MG EC tablet 04-02 00:00: 00 04-03 00:00 :00 No 500mg Q.5D Take 1 tablet (500 mg total) by mouth 2 (two) times daily for 90 days. [facility] clonazePAM (KlonoPIN) 0.5 MG tablet 04-02 00:00: 00 04-03 00:00 :00 No .25mg Take 0.5 tablets (0.25 mg total) by mouth 2 (two) times daily as needed for Anxiety for up to 30 days. Max Daily Amount: 0.5 mg [facility] gabapentin (NEURONTIN) 300 MG capsule 04-02 00:00: 00 04-03 00:00 :00 No 300mg Q.[id number] 3D Take 1 capsule (300 mg total) by mouth 3 (three) times daily for 90 days. [facility] HYDROcodone -acetaminop hen (NORCO 10-325) 10-325 mg per tablet 04-02 00:00: 00 04-03 00:00 :00 No 1{tbl} Take 1 tablet by mouth every 6 (six) hours as needed for up to 10 days. Max Daily Amount: 4 tablets [facility] methocarbam oL (ROBAXIN) 500 MG tablet 04-02 00:00: 00 04-03 00:00 :00 No 500mg Q.25D Take 1 tablet (500 mg total) by mouth 4 (four) times daily for 10 days. [facility] divalproex (DEPAKOTE) 500 MG EC tablet 04-02 00:00: 00 04-03 00:00 :00 No 500mg Q.5D Take 1 tablet (500 mg total) by mouth 2 (two) times daily for 90 days. [facility] clonazePAM (KlonoPIN) 0.5 MG tablet 04-02 00:00: 00 04-03 00:00 :00 No .25mg Take 0.5 tablets (0.25 mg total) by mouth 2 (two) times daily as needed for Anxiety for up to 30 days. Max Daily Amount: 0.5 mg [facility] Metronidazo le 500 MG oral Tablet 01-17 00:00: 00 Yes Cynthia gonzalez Clonazepam 1 MG oral Tablet 01-16 00:00: 00 Yes 1mg 1 tablet (1 mg total). Cynthia gonzalez Clonazepam 1 MG oral Tablet 01-16 00:00: 00 09-29 00:00 :00 No 1mg 1 tablet (1 mg total). Cynthia [...] member approving Restricted medication : Alfonso ALVARADO [facility] ketorolac (TORADOL) injection 15 mg 12-11 18:15: 00 12-11 17:25 :00 No 15mg 15 mg, Slow IV Push, ONCE, 1 dose, On Arpita 12/11/22 at 1315, MICHAEL [facility] iopamidol (ISOVUE 370-500 mL) injection 80 mL 12-11 16:30: 00 12-11 16:27 :00 No [id number] 80mL 80 mL, Intravenou s, ONCE, 1 dose, On Arpita 12/11/22 at 1130, Routine [facility] nitroglycer in (NITROL) 2 % ointment 0.5 Inch 12-11 15:30: 00 12-11 14:31 :00 No .5[in_u s] 0.5 Inch, Transderma l (Apply To Skin), ONCE, 1 dose, On Thu12/11/22 at 1030, MICHAEL [facility] aspirin chewable tablet 324 mg 12-11 15:30: 00 12-11 14:30 :00 No 324mg 324 mg, Oral, ONCE, 1 dose, On Thu12/11/22 at 1030, Routine [facility] ondansetron (ZOFRAN (PF)) injection 4 mg 12-11 15:30: 00 12-11 14:29 :00 No 4mg 4 mg, Slow IV Push, ONCE, 1 dose, [facility] 1 mg 12-11 15:00: 00 12-11 14:57 :00 No 1mg 1 mg, Slow IV Push, ONCE, 1 dose, On Thu12/11/22 at 1000, STAT [facility] Lacosamide (VIMPAT) 100 mg tablet 12-11 00:00: 00 Yes [id number] 100mg Take 1 tablet by mouth in the morning and 1 tablet in the evening. [facility] Lacosamide (VIMPAT) 100 mg tablet 12-11 00:00: 00 Yes [id number] 100mg Take 1 tablet by mouth in the morning and 1 tablet in the evening. [facility] acetaminoph en-codeine (TYLENOL #3) 300-30 mg tablet 1 tablet 11-18 05:30: 00 11-18 05:30 :00 No 1{tbl} 1 tablet, Oral, ONCE, 1 dose, On Thu11/18/22 at 0030, [facility] methocarbam oL (ROBAXIN) tablet 1,000 mg 11-18 05:30: 00 11-18 05:30 :00 No 1000mg 1,000 mg, Oral, ONCE, 1 dose, On Thu11/18/22 at 0030, MICHAEL [facility] ondansetron (ZOFRAN (PF)) injection 4 mg 11-18 04:45: 00 11-18 03:38 :00 No 4mg 4 mg, Slow IV Push, ONCE, 1 dose, [facility]11/17/22 [facility] 2345[facility] 4 mg 11-18 03:45: 00 11-18 03:38 :00 No 4mg 4 mg, Slow IV Push, ONCE, 1 dose, On Thu11/17/22 at 2245, Routine [facility] methocarbam oL (ROBAXIN) injection 1,000 mg 11-18 00:30: 00 11-17 23:47 :00 No 1000mg 1,000 mg, Intravenou s, ONCE, 1 dose, On Thu11/17/22 at 1930, [facility] methocarbam oL 500 mg tablet 11-18 00:00: 00 Yes [id number] 1000mg Take 2 tablets by mouth 4 (four) times daily as needed for Pain (scale 7-10). [facility] methocarbam oL 500 mg tablet 11-18 00:00: 00 Yes [id number] 1000mg Take 2 tablets by mouth 4 (four) times daily as needed for Pain (scale 7-10). [facility] methocarbam oL 500 mg tablet 11-18 00:00: 00 Yes [id number] 1000mg Take 2 tablets by mouth 4 (four) times daily as needed for Pain (scale 7-10). [facility] acetaminoph en-codeine 300-60 mg tablet 11-18 00:00: 00 11-26 04:59 :00 No [id number] 1{tbl} Take 1 tablet by mouth every 6 (six) hours as needed for Pain for up to 7 days. Indication s: acute pain [facility] ketorolac (TORADOL) injection 15 mg 2023-0 5-02 00:00: 00 11-17 23:08 :00 No 15mg 15 mg, Slow IV Push, ONCE, 1 dose, On Thu11/17/22 at 1900, Routine [facility] morpHINE (4 mg/mL) injection 4 mg 11-17 23:45: 00 11-17 23:49 :00 No 4mg 4 mg, Slow IV Push, ONCE, 1 dose, On Thu11/17/22 at 1845, Routine [facility] ondansetron (ZOFRAN (PF)) injection 4 mg 11-17 23:15: 00 11-17 23:06 :00 No 4mg 4 mg, Slow IV Push, ONCE, 1 dose, On Thu11/17/22 at 1815, MICHAEL [facility] lisinopriL (PRINIVIL,Z ESTRIL) tablet 10 [...] dose on Thu08/06/22 at [address], [address] [facility] morpHINE (2 mg/mL) injection 2 mg 08-02 03:29: 15 Yes 2mg 2 mg, Slow IV Push, Q4HPRN, Starting on Thu08/01/22 at 2129, Until Discontinu ed, Routine, Pain (scale 7-10) [facility] levETIRAcet am (KEPPRA) in NACL (ISO-OS) 1,000 mg/100 mL RTU 08-02 00:00: 00 Yes 1000mg 1,000 mg, IV Piggyback, Q12H, First dose on Thu08/01/22 at 1800, Until Discontinu ed, Administer over 15 Minutes, 100 mL [facility] MULTIVITAMI N ORAL 08-01 23:49: 34 Yes 1{tbl} Take 1 Tab by mouth daily. [facility] omega-3 fatty acids-vitam in E (FISH OIL) 1,000 mg capsule 08-01 23:49: 34 Yes 1g Take 1 g by mouth daily. [facility] loratadine (CLARITIN LIQUI-GEL) 10 mg capsule 08-01 23:49: 34 Yes Take by mouth daily. [facility] ondansetron 4 mg tablet 08-01 23:49: 34 Yes 4mg Take 4 mg by mouth every 8 (eight) hours as needed. [facility] pantoprazol e 40 mg EC tablet 08-01 23:49: 34 Yes 40mg Take 40 mg by mouth daily. [facility] MULTIVITAMI N ORAL 08-01 23:49: 34 Yes 1{tbl} Take 1 Tab by mouth daily. [facility] omega-3 fatty acids-vitam in E (FISH OIL) 1,000 mg capsule 08-01 23:49: 34 Yes 1g Take 1 g by mouth daily. [facility] loratadine (CLARITIN LIQUI-GEL) 10 mg capsule 08-01 23:49: 34 Yes Take by mouth daily. [facility] ondansetron 4 mg tablet 08-01 23:49: 34 Yes 4mg Take 4 mg by mouth every 8 (eight) hours as needed. [facility] pantoprazol e 40 mg EC tablet 08-01 23:49: 34 Yes 40mg Take 40 mg by mouth daily. [facility] MULTIVITAMI N ORAL 08-01 23:49: 34 Yes 1{tbl} Take 1 Tab by mouth daily. [facility] omega-3 fatty acids-vitam in E (FISH OIL) 1,000 mg capsule 08-01 23:49: 34 Yes 1g Take 1 g by mouth daily. [facility] loratadine (CLARITIN LIQUI-GEL) 10 mg capsule 08-01 23:49: 34 Yes Take by mouth daily. [facility] ondansetron 4 mg tablet 08-01 23:49: 34 Yes 4mg Take 4 mg by mouth every 8 (eight) hours as needed. [facility] pantoprazol e 40 mg EC tablet 08-01 23:49: 34 Yes 40mg Take 40 mg by mouth daily. [facility] MULTIVITAMI N ORAL 08-01 23:49: 34 Yes 1{tbl} Take 1 Tab by mouth daily. [facility] omega-3 fatty acids-vitam in E (FISH OIL) 1,000 mg capsule 08-01 23:49: 34 Yes 1g Take 1 g by mouth daily. [facility] loratadine (CLARITIN LIQUI-GEL) 10 mg capsule 08-01 23:49: 34 Yes Take by mouth daily. [facility] ondansetron 4 mg tablet 08-01 23:49: 34 Yes 4mg Take 4 mg by mouth every 8 (eight) hours as needed. [facility] pantoprazol e 40 mg EC tablet 08-01 23:49: 34 Yes 40mg Take 40 mg by mouth daily. [facility] MULTIVITAMI N ORAL 08-01 23:49: 34 Yes 1{tbl} Take 1 Tab by mouth daily. [facility] omega-3 fatty acids-vitam in E (FISH OIL) 1,000 mg capsule 08-01 23:49: 34 Yes 1g Take 1 g by mouth daily. [facility] loratadine (CLARITIN LIQUI-GEL) 10 mg capsule 08-01 23:49: 34 Yes Take by mouth daily. [facility] ondansetron 4 mg tablet 08-01 23:49: 34 Yes 4mg Take 4 mg by mouth every 8 (eight) hours as needed. [facility] pantoprazol e 40 mg EC tablet 08-01 23:49: 34 Yes 40mg Take 40 mg by mouth daily. [facility] MULTIVITAMI N ORAL 08-01 23:49: 34 Yes 1{tbl} Take 1 Tab by mouth daily. [facility] omega-3 fatty acids-vitam in E (FISH OIL) 1,000 mg capsule 08-01 23:49: 34 Yes 1g Take 1 g by mouth daily. [facility] loratadine (CLARITIN LIQUI-GEL) 10 mg capsule 08-01 23:49: 34 Yes Take by mouth daily. [facility] ondansetron 4 mg tablet 08-01 23:49: 34 Yes 4mg Take 4 mg by mouth every 8 (eight) hours as needed. [facility] pantoprazol e 40 mg EC tablet 08-01 23:49: 34 Yes 40mg Take 40 mg by mouth daily. [facility] benzonatate (TESSALON PERLES) capsule 100 mg 08-01 20:00: 00 Yes 100mg 100 mg, Oral, Q8H, First dose on Thu08/01/22 at 1400, Until Discontinu ed, Routine [facility] ipratropium -albuteroL (DUONEB) 0.5 mg-3 mg(2.5 mg base)/3 mL nebulizer solution 3 mL 08-01 18:00: 00 Yes 3mL 3 mL, Inhalation , QID, First dose on Thu08/01/22 at 1200, Until Discontinu ed, Routine [facility] ipratropium -albuteroL (DUONEB) 0.5 mg-3 mg(2.5 mg base)/3 mL nebulizer solution 3 mL 08-01 17:07: 07 Yes 3mL 3 mL, Inhalation , QIDPRN, Starting on Thu08/01/22 at 1107, Until Discontinu ed, MICHAEL, Wheezing, Shortness of Breath [facility] sulfur hexafluorid e microsphr (LUMASON) injection 5 mL 08-01 17:00: 00 08-01 17:00 :00 No [id number] 5mL 5 mL, Intravenou s, ONCE, 1 dose, On Thu08/01/22 at 1100, Routine
membership director approving Restricted medication : KYLEE MONTEZ [facility] pantoprazol e (PROTONIX) EC tablet 40 mg 08-01 15:00: 00 Yes 40mg 40 mg, Oral, DAILY, First dose on Thu08/01/22 at 0900, Until Discontinu ed, Routine [facility] aspirin chewable tablet 81 mg 08-01 15:00: 00 Yes 81mg 81 mg, Oral, DAILY, First dose on Thu08/01/22 at 0900, Until Discontinu ed, Routine [facility] amLODIPine (NORVASC) tablet 10 mg 08-01 15:00: 00 Yes 10mg 10 mg, Oral, DAILY, First dose on Thu08/01/22 at 0900, Until Discontinu ed, Routine [facility] levETIRAcet am (KEPPRA) tablet 500 mg 08-01 14:00: 00 08-01 23:56 :35 No 500mg 500 mg, Oral, BID, First dose on Thu08/01/22 at 0800, Until Discontinu ed, Routine [facility] carvediloL (COREG) tablet 6.25 mg 08-01 14:00: 00 08-01 17:29 :13 No 6.25mg 6.25 mg, Oral, BID MEALS, First dose on Thu08/01/22 at 0800, Until Discontinu ed, Routine [facility] levETIRAcet am (KEPPRA) in NACL (ISO-OS) 1,000 mg/100 mL RTU 08-01 06:45: 00 08-01 06:32 :00 No 1000mg 1,000 mg, IV Piggyback, ONCE, 1 dose, On Thu08/01/22 at 0045, Administer over 15 Minutes, 100 mL [facility] LORazepam (ATIVAN) injection 1 mg 08-01 05:52: 54 Yes 1mg 1 mg, Slow IV Push, Q4HPRN, Starting on Thu07/31/22 at 2352, Until Discontinu ed, Routine, Seizures, Agitation, Anxiety, ETOH / Cocaine Withdrawl [facility] foLIC acid (FOLATE) tablet 1 mg 08-01 05:45: 00 Yes 1mg 1 mg, Oral, DAILY, First dose on Thu07/31/22 at 2345, Until Discontinu ed, Routine [facility] thiamine (VITAMIN B1) tablet 100 mg 08-01 05:45: 00 Yes 100mg 100 mg, Oral, DAILY, First dose on Thu07/31/22 at 2345, Until Discontinu ed, Routine [facility] LORazepam (ATIVAN) injection 0.5 mg 08-01 05:30: 00 08-01 05:29 :00 No .5mg 0.5 mg, Slow IV Push, ONCE, 1 dose, On Thu07/31/22 at 2330, MICHAEL [facility] atorvastati n (LIPITOR) tablet 40 [...] at 1700, Until Discontinu ed, Routine [facility] morpHINE (2 mg/mL) injection 2 mg 07-31 23:00: 00 07-31 22:29 :00 No 2mg 2 mg, Slow IV Push, ONCE, 1 dose, On Thu07/31/22 at 1700, Routine [facility] HYDROcodone -acetaminop hen (NORCO) 10-325 mg tablet 1 tablet 07-31 22:01: 36 Yes 1{tbl} 1 tablet, Oral, Q6HPRN, Starting on Arpita 07/31/22 at 1601, Until Discontinu ed, Routine, Pain (scale 7-10) [facility] HYDROcodone -acetaminop hen (NORCO 5) 5-325 mg tablet 1 tablet 07-31 22:01: 34 08-02 22:00 :34 No 1{tbl} 1 tablet, Oral, Q6HPRN, Starting on Arpita 07/31/22 at 1601, Until 08/02/22 at 1600, Routine, Pain (scale 4-6) [facility] acetaminoph en (TYLENOL) tablet 650 mg 07-31 22:01: 33 Yes 650mg 650 mg, Oral, Q6HPRN, Starting on Arpita 07/31/22 at 1601, Until Discontinu ed, Routine, Pain (scale 1-3) [facility] ketorolac (TORADOL) injection 15 mg 07-31 21:45: 00 07-31 20:50 :00 No 15mg 15 mg, Slow IV Push, ONCE, 1 dose, On Arpita 07/31/22 at 1545, Routine [facility] ondansetron (ZOFRAN (PF)) injection 4 [...] dose, On Arpita 07/31/22 at 1330, MICHAEL [facility] ipratropium -albuteroL (DUONEB) 0.5 mg-3 mg(2.5 mg base)/3 mL nebulizer solution 3 mL 07-31 19:30: 00 07-31 18:48 :00 No 3mL 3 mL, Inhalation , ONCE, 1 dose, On Arpita 07/31/22 at 1330, MICHAEL [facility] pantoprazol e 40 mg EC tablet 07-31 17:15: 40 Yes 40mg Take 40 mg by mouth daily. [facility] MULTIVITAMI N ORAL 07-31 15:50: 57 Yes 1{tbl} Take 1 Tab by mouth daily. [facility] loratadine (CLARITIN LIQUI-GEL) 10 mg capsule 07-31 15:50: 57 Yes Take by mouth daily. [facility] ondansetron 4 mg tablet 07-31 15:50: 57 Yes 4mg Take 4 mg by mouth every 8 (eight) hours as needed. [facility] omega-3 fatty acids-vitam in E (FISH OIL) 1,000 mg capsule 07-31 15:21: 27 Yes 1g Take 1 g by mouth daily. [facility] TAKE ONE (1) TABLET(S) BY MOUTH THREE TIMES A DAY NEEDED. 07-28 00:00: 00 No Methylpredn isolone 4 mg tablet 2021-07 0 00:00: 00 05-12 04:59 :00 No [id number] 4mg Take 1 tablet through enteral tube in the morning for 1 dose. [facility] Methylpredn isolone 4 mg tablet 2021-07 0- 00:00: 00 05-11 04:59 :00 No [id number] 4mg Take 1 tablet through enteral tube every 12 (twelve) hours for 2 doses. [facility] MULTIVITAMI N ORAL 2021-07 0 14:44: 48 Yes 1{tbl} Take 1 Tab by mouth daily. [facility] omega-3 fatty acids-vitam in E (FISH OIL) 1,000 mg capsule 2021-07 14:44: 48 Yes 1g Take 1 g by mouth daily. [facility] loratadine (CLARITIN LIQUI-GEL) 10 mg capsule 2021-07 14:44: 48 Yes Take by mouth daily. [facility] ondansetron (ZOFRAN) 4 mg tablet 2021-07 14:44: 48 Yes 4mg Take 4 mg by mouth every 8 (eight) hours as needed. [facility] pantoprazol e (PROTONIX) 40 mg EC tablet 2021-07 14:44: 48 Yes 40mg Take 40 mg by mouth daily. [facility] DULoxetine (CYMBALTA) capsule 30 mg 2021-07 14:00: 00 Yes 30mg 30 mg, Oral, DAILY, First dose on Thu05/08/22 at 0900, Until Discontinu ed, Routine [facility] divalproex (DEPAKOTE) EC tablet 1,000 mg 2021-07 13:00: 00 Yes 1000mg 1,000 mg, Oral, BID, First dose (after last modificati on) on Thu05/08/22 at 0800, Until Discontinu ed, Routine [facility] Methylpredn isolone (MEDROL) tablet 4 mg 2021-07 08:50: 10 05-09 08:59 :00 No 4mg 4 mg, Oral, Q8H TAPER, 3 doses, First dose on Thu05/08/22 at 0400, Last dose on Thu05/08/22 at 2000, Routine [facility] acetaminoph en-codeine (TYLENOL #3) 300-30 mg tablet 1 tablet 2021-07 04:07: 01 Yes 1{tbl} 1 tablet, Oral, Q4HPRN, Starting on Thu05/07/22 at 2307, Until Discontinu ed, Routine, Pain (scale 7-10) [facility] morpHINE (2 mg/mL) injection 2 mg 2021-07 03:03: 15 Yes 2mg 2 mg, Slow IV Push, Q4HPRN, Starting on Thu05/07/22 at 2203, Until Discontinu ed, Routine, Pain (scale 7-10) [facility] LORazepam (ATIVAN) tablet 1 mg 2021-07 0 00:02: 18 Yes 1mg 1 mg, Oral, Q6HPRN, Starting on Thu05/07/22 at 1902, Until Discontinu ed, Routine, Anxiety [facility] cyclobenzap rine 5 mg tablet 2021-07 0 00:00: 00 Yes [id number] 5mg Take 1 tablet by mouth in the morning and 1 tablet at noon and 1 tablet in the evening. [facility] cyclobenzap rine 5 mg tablet 2021-07 0 00:00: 00 Yes [id number] 5mg Take 1 tablet by mouth in the morning and 1 tablet at noon and 1 tablet in the evening. [facility] cyclobenzap rine 5 mg tablet 2021-07 0 00:00: 00 Yes [id number] 5mg Take 1 tablet by mouth in the morning and 1 tablet at noon and 1 tablet in the evening. [facility] cyclobenzap rine 5 mg tablet 2021-07 0 00:00: 00 Yes [id number] 5mg Take 1 tablet by mouth in the morning and 1 tablet at noon and 1 tablet in the evening. [facility] cyclobenzap rine 5 mg tablet 2021-07 0 00:00: 00 Yes [id number] 5mg Take 1 tablet by mouth in the morning and 1 tablet at noon and 1 tablet in the evening. [facility] cyclobenzap rine 5 mg tablet 2021-07 0 00:00: 00 Yes [id number] 5mg Take 1 tablet by mouth in the morning and 1 tablet at noon and 1 tablet in the evening. [facility] cyclobenzap rine 5 mg tablet 2021-07 0- 00:00: 00 Yes [id number] 5mg Take 1 tablet by mouth in the morning and 1 tablet at noon and 1 tablet in the evening. [facility] cyclobenzap rine 5 mg tablet 2021-07 0- 00:00: 00 Yes [id number] 5mg Take 1 tablet by mouth in the morning and 1 tablet at noon and 1 tablet in the evening. [facility] DULoxetine (CYMBALTA) 30 mg capsule 2021-07 00:00: 00 06-08 05:59 :00 No [id number] 60mg Take 2 capsules by mouth in the morning for 30 days. [facility] divalproex (DEPAKOTE) 250 mg EC tablet 2021-07 00:00: 00 06-08 05:59 :00 No [id number] 750mg Take 3 tablets by mouth every 8 (eight) hours for 30 days. [facility] LORazepam 1 mg tablet 2021-07 00:00: 05-19 04:59 :00 No [id number] 1mg Take 1 tablet by mouth every 6 (six) hours as needed for Anxiety or Agitation for up to 10 days. [facility] acetaminoph en-codeine 300-30 mg tablet 2021-07 00:00: 05-16 04:59 :00 No [id number] 1{tbl} Take 1 tablet by mouth every 4 (four) hours as needed for Pain (scale 7-10) for up to 7 days. Indication s: acute pain [facility] Methylpredn isolone 4 mg tablet 2021-07 00:00: 00 05-10 04:59 :00 No [id number] 4mg Take 1 tablet by mouth every 8 (eight) hours for 3 doses. [facility] divalproex (DEPAKOTE) EC tablet 750 mg 2021-07 01:00: 00 05-08 09:40 :23 No 750mg 750 mg, Oral, BID, First dose on Thu05/06/22 at 2000, Until Discontinu ed, Routine [facility] levETIRAcet am (KEPPRA) tablet 1,500 mg 2021-07 13:00: 00 05-06 18:38 :22 No 1500mg 1,500 mg, Oral, BID, First dose (after last modificati on) on Thu05/06/22 at 0800, Until Discontinu ed, Routine [facility] levETIRAcet am (KEPPRA) in NACL (ISO-OS) 1,000 mg/100 mL RTU 2021-07 05:00: 00 05-06 05:46 :00 No 1000mg 1,000 mg, IV Piggyback, ONCE, 1 dose, On Thu05/06/22 at 0000, Administer over 15 Minutes, 100 mL [facility] methocarbam oL (ROBAXIN) tablet 500 mg 2021-07 02:15: 00 05-06 23:21 :42 No 500mg 500 mg, Oral, QID, First dose on Thu05/05/22 at 2115, Until Discontinu ed, Routine [facility] LORazepam (ATIVAN) tablet 2 mg 2021-07 01:30: 00 05-06 01:03 :00 No 2mg 2 mg, Oral, ONCE, 1 dose, On Thu05/05/22 at 2030, Routine [facility] levETIRAcet am (KEPPRA) tablet 1,000 mg 2021-07 01:00: 00 05-06 04:48 :06 No 1000mg 1,000 mg, Oral, BID, First dose on Thu05/05/22 at 2000, Until Discontinu ed, Routine [facility] enoxaparin (LOVENOX) injection 40 mg 2021-07 00:15: 00 Yes 40mg 40 mg, Subcutaneo us, Q24H, First dose on Thu05/05/22 at 1915, Until Discontinu ed, Routine [facility] levETIRAcet am (KEPPRA) in NACL (ISO-OS) 1,000 mg/100 mL RTU 2021-07 19:45: 00 05-05 20:05 :00 No 1000mg 1,000 mg, IV Piggyback, ONCE, 1 dose, On Thu05/05/22 at 1445, Administer over 15 Minutes, 100 mL [facility] clonazePAM (KLONOPIN) tablet 0.5 mg 2021-07 19:30: 00 Yes .5mg 0.5 mg, Oral, BID, First dose on Thu05/05/22 at 1430, Until Discontinu ed, [facility]ine [facility] ([facility] 600 mg 2021-07 19:30: 00 Yes 600mg 600 mg, Oral, TID MEALS, First dose on Thu05/05/22 at 1430, Until Discontinu ed, Routine [facility] gabapentin (NEURONTIN) capsule 300 mg 2021-07 19:30: 00 Yes 300mg 300 mg, Oral, TID, First dose on Thu05/05/22 at 1430, Until Discontinu ed, Routine [facility] cyclobenzap rine (FLEXERIL) tablet 5 mg 2021-07 19:30: 00 Yes 5mg 5 mg, Oral, TID, First dose on Thu05/05/22 at 1430, Until Discontinu ed, Routine [facility] acetaminoph en (TYLENOL) tablet 1,000 mg 2021-07 [...] at 1418, Routine, Pain (scale 7-10) [facility] ondansetron (ZOFRAN (PF)) injection 4 mg 2021-07 06:49: 57 Yes 4mg 4 mg, Slow IV Push, Q6HPRN, Starting on Thu05/05/22 at 0149, Until Discontinu ed, Routine, Nausea and Vomiting (N/V) [facility] HYDROcodone -acetaminop hen (NORCO 5) 5-325 mg tablet 1 tablet 2021-07 06:49: 41 05-05 10:32 :14 No 1{tbl} 1 tablet, Oral, Q6HPRN, Starting on Thu05/05/22 at 0149, Until Thu05/05/22 at 0532, Routine, Pain (scale 7-10) [facility] acetaminoph en (TYLENOL) tablet 325 mg 2021-07 06:49: 39 05-05 19:18 :52 No 325mg 325 mg, Oral, Q4HPRN, Starting on Thu05/05/22 at 0149, Until Thu05/05/22 at 1418, Routine, Pain (scale 4-6) [facility] ondansetron (ZOFRAN) tablet 4 mg 2021-07 04:00: 00 05-05 03:26 :00 No 4mg 4 mg, Oral, ONCE, 1 dose, On 05/04/22 at 2300, Routine [facility] morpHINE (2 mg/mL) injection 2 mg 2021-07 04:00: 00 05-05 03:26 :00 No 2mg 2 mg, Slow IV Push, ONCE, 1 dose, On 05/04/22 at 2300, Routine [facility] aspirin 81 mg chewable tablet 04-16 00:00: 00 Yes [id number] 81mg Take 1 tablet by mouth in the morning. [facility] aspirin 81 mg chewable tablet 04-16 00:00: 00 Yes [id number] 81mg Take 1 tablet by mouth in the morning. [facility] aspirin 81 mg chewable tablet 04-16 00:00: 00 Yes [id number] 81mg Take 1 tablet by mouth in the morning. [facility] aspirin 81 mg chewable tablet 04-16 00:00: 00 Yes [id number] 81mg Take 1 tablet by mouth in the morning. [facility] aspirin 81 mg chewable tablet 04-16 00:00: 00 Yes [id number] 81mg Take 1 tablet by mouth in the morning. [facility] aspirin 81 mg chewable tablet 04-16 00:00: 00 Yes [id number] 81mg Take 1 tablet by mouth in the morning. [facility] aspirin 81 mg chewable tablet 04-16 00:00: 00 Yes [id number] 81mg Take 1 tablet by mouth in the morning. [facility] aspirin 81 mg chewable tablet 04-16 00:00: 00 Yes [id number] 81mg Take 1 tablet by mouth in the morning. [facility] aspirin 81 mg chewable tablet 04-16 00:00: 00 Yes [id number] 81mg Take 1 tablet by mouth in the morning. [facility] MULTIVITAMI N ORAL 04-15 17:39: 14 Yes 1{tbl} Take 1 Tab by mouth daily. [facility] omega-3 fatty acids-vitam in E (FISH OIL) 1,000 mg capsule 04-15 17:39: 14 Yes 1g Take 1 g by mouth daily. [facility] loratadine (CLARITIN LIQUI-GEL) 10 mg capsule 04-15 17:39: 14 Yes Take by mouth daily. [facility] ondansetron (ZOFRAN) 4 mg tablet 04-15 17:39: 14 Yes 4mg Take 4 mg by mouth every 8 (eight) hours as needed. [facility] pantoprazol e (PROTONIX) 40 mg EC tablet 04-15 17:39: 14 Yes 40mg Take 40 mg by mouth daily. [facility] lisinopril- hydrochloro thiazide 20-12.5 mg per tablet 04-15 15:58: 35 04-15 00:00 :00 No 1{tbl} Take 1 tablet by mouth daily. [facility] levetiracet am (KEPPRA ORAL) 04-15 15:58: 35 04-15 00:00 :00 No Take by mouth. [facility] acetaminoph en-codeine (TYLENOL #4) 300-60 mg tablet 1 tablet 04-15 05:39: 23 04-15 14:39 :42 No 1{tbl} 1 tablet, Oral, Q6HPRN, Starting on Thu04/15/22 at 0039, Until Thu04/15/22 at 0939, Routine, Pain (scale 4-6), Pain (scale 1-3) [facility] LORazepam (ATIVAN) tablet 2 mg 04-15 03:30: 00 04-15 10:27 :00 No 2mg 2 mg, Oral, ONCE, 1 dose, On Thu04/14/22 at 2230, Routine [facility] levETIRAcet am (KEPPRA) tablet 1,000 mg 04-15 02:45: 00 Yes 1000mg 1,000 mg, Oral, BID, First dose (after last modificati on) on Thu04/14/22 at 2145, Until Discontinu ed, Routine [facility] ketorolac (TORADOL) injection 15 mg 04-15 02:13: 00 04-15 02:22 :00 No 15mg 15 mg, Slow IV Push, ONCE, 1 dose, On Thu04/14/22 at 2115, Routine [facility] atorvastati n 40 mg tablet 04-15 00:00: 00 Yes [id number] 40mg Take 1 tablet by mouth at bedtime. [facility] levETIRAcet am 1,000 mg tablet 04-15 00:00: 00 Yes [id number] 1000mg Take 1 tablet by mouth in the morning and 1 tablet in the evening. [facility] atorvastati n 40 mg tablet 04-15 00:00: 00 Yes [id number] 40mg Take 1 tablet by mouth at bedtime. [facility] atorvastati n 40 mg tablet 04-15 00:00: 00 Yes [id number] 40mg Take 1 tablet by mouth at bedtime. [facility] atorvastati n 40 mg tablet 04-15 00:00: 00 Yes [id number] 40mg Take 1 tablet by mouth at bedtime. [facility] atorvastati n 40 mg tablet 04-15 00:00: 00 Yes [id number] 40mg Take 1 tablet by mouth at bedtime. [facility] atorvastati n 40 mg tablet 04-15 00:00: 00 Yes [id number] 40mg Take 1 tablet by mouth at bedtime. [facility] atorvastati n 40 mg tablet 04-15 00:00: 00 Yes [id number] 40mg Take 1 tablet by mouth at bedtime. [facility] atorvastati n 40 mg tablet 04-15 00:00: 00 Yes [id number] 40mg Take 1 tablet by mouth at bedtime. [facility] atorvastati n 40 mg tablet 04-15 00:00: 00 Yes [id number] 40mg Take 1 tablet by mouth at bedtime. [facility] levETIRAcet am 1,000 mg tablet 04-15 00:00: 00 05-08 00:00 :00 No [id number] 1000mg Take 1 tablet by mouth in the morning and 1 tablet in the evening. [facility] lidocaine 5 % (700 mg/patch) patch 04-15 00:00: 00 04-23 04:59 :00 No [id number] 1{patch } Apply 1 Patch to area(s) in the morning for 7 days. [facility] HYDROcodone -acetaminop hen 5-325 mg tablet 04-15 00:00: 00 04-21 04:59 :00 No [id number] 1{tbl} Take 1 tablet by mouth every 6 (six) hours as needed for Pain (scale 7-10) for up to 5 days. Indication s: acute pain [facility] lidocaine (LIDODERM) 5 % (700 mg/patch) patch 1 Patch 04-14 21:45: 29 Yes 1{patch } 1 Patch, Topical, Administer over 12 Hours, [id number], Starting on Thu04/14/22 at 1645, Until Discontinu ed, Routine, Localized pain [facility] aspirin chewable tablet 81 mg 04-14 21:30: 00 Yes 81mg 81 mg, Oral, DAILY, First dose on Thu04/14/22 at 1630, Until Discontinu ed, Routine [facility] acetaminoph en (TYLENOL) tablet 650 mg 04-14 21:29: 25 Yes 650mg 650 mg, Oral, Q6HPRN, Starting on Thu04/14/22 at 1629, Until Discontinu ed, Routine, Pain (scale 1-3), Temp > 38.5 C, Temp > 37.[address] [facility] HYDROcodone -acetaminop hen (NORCO) 10-325 mg tablet 1 tablet 04-14 21:29: 02 04-15 05:39 :41 No 1{tbl} 1 tablet, Oral, Q6HPRN, Starting on Thu04/14/22 at 1629, Until Thu04/15/22 at 0039, Routine, Pain (scale 7-10), Pain (scale 4-6) [facility] sulfur hexafluorid e microsphr (LUMASON) injection 5 mL 04-14 16:45: 00 04-14 16:45 :00 No [id number] 5mL 5 mL, Intravenou s, ONCE, 1 dose, On Thu04/14/22 at 1145, Routine
membership director approving Restricted medication : [employer] [facility] clopidogreL (PLAVIX) 75 mg tablet 75 [...] at 2000, Until Discontinu ed, Routine [facility] heparin (porcine) injection 5,000 Units 04-14 01:00: 00 Yes 5000U 5,000 Units, Subcutaneo us, Q12H, First dose on Thu04/13/22 at 2000, Until Discontinu ed, Routine [facility] acetaminoph en (TYLENOL) tablet 650 mg 04-14 00:23: 25 04-14 21:29 :42 No 650mg 650 mg, Oral, Q6HPRN, Starting on Thu04/13/22 at 1923, Until Thu04/14/22 at 1629, Routine, Pain (scale 1-3), Pain (scale 4-6), Temp > 38.5 C, Temp > 37.[address] [facility] lidocaine (LIDODERM) 5 % (700 mg/patch) patch 1 Patch 04-14 00:22: 00 04-14 13:51 :00 No 1{patch } 1 Patch, Topical, Administer over 12 Hours, ONCE, 1 dose, On Thu04/13/22 at 1930, Routine [facility] FENTanyl PF (SUBLIMAZE (PF)) injection 50 mcg 04-13 20:30: 00 04-13 19:22 :00 No 50ug 50 mcg, Slow IV Push, ONCE, 1 dose, On Thu04/13/22 at 1530, Routine [facility] aspirin chewable tablet 650 mg 04-13 20:15: 00 04-13 20:15 :00 No 650mg 650 mg, Oral, ONCE, 1 dose, On Thu04/13/22 at 1515, Routine [facility] clopidogreL (PLAVIX) 300 mg tablet 300 mg 04-13 20:00: 00 04-13 19:15 :00 No 300mg 300 mg, Oral, ONCE, 1 dose, On Thu04/13/22 at 1500, Routine [facility] ondansetron (ZOFRAN (PF)) injection 4 mg 04-13 19:30: 00 04-13 19:22 :00 No 4mg 4 mg, Slow IV Push, ONCE, 1 dose, On 04/13/22 at 1430, MICHAEL [facility] iopamidol (ISOVUE 370-500 mL) injection 100 mL 04-13 18:31: 00 04-13 18:32 :00 No [id number] 100mL 100 mL, Intravenou s, ONCE, 1 dose, On Thu04/13/22 at 1345, Routine [facility] NaCl 0.9% (NS) injection 5 mL 04-13 18:14: 11 Yes 5mL 5 mL, Slow IV Push, PRN - SEE INSTRUCTIO NS, Starting on Thu04/13/22 at 1314, Until Discontinu ed, 10 mL [facility] aspirin chewable tablet 324 mg 11-24 14:00: 00 Yes 324mg 324 mg, Oral, DAILY, First dose on 11/24/21 at 0900, Until Discontinu ed, Routine [facility] metoclopram iker HCl (REGLAN) injection 10 mg 11-23 22:30: 00 11-23 21:24 :00 No 10mg 10 mg, Slow IV Push, ONCE, 1 dose, On 11/23/21 at 1730, [facility] acetaminoph en (TYLENOL) tablet 1,000 mg 11-23 22:15: 00 11-23 21:09 :00 No 1000mg 1,000 mg, Oral, ONCE, 1 dose, On 11/23/21 at 1715, [facility] ondansetron (ZOFRAN (PF)) injection 4 mg 11-23 21:45: 00 11-23 20:30 :00 No 4mg 4 mg, Slow IV Push, ONCE, 1 dose, On 11/23/21 at 1645, [facility] NaCl 0.9% (NS) bolus infusion 1,000 mL 11-23 21:30: 00 11-23 21:56 :00 No 1000mL at 999 mL/hr, 1,000 mL, IV Infusion, ONCE, 1 dose, On 11/23/21 at 1630, [facility] LORazepam (ATIVAN) injection 4 mg 11-23 21:30: 00 11-23 20:23 :00 No 4mg 4 mg, Slow IV Push, ONCE, 1 dose, On 11/23/21 at 1630, STAT [facility] levETIRAcet am (KEPPRA) in NACL (ISO-OS) 1,500 mg/100 mL RTU 11-23 21:30: 00 11-23 20:47 :00 No 1500mg 1,500 mg, IV Piggyback, ONCE, 1 dose, On 11/23/21 at 1630, Administer over 15 Minutes, 100 mL [facility] Dose Unknown -08 00:00: 00 No Dose Unknown 4-08 00:00: 00 No Prozac 20 mg capsule 3-21 00:00: 00 No 1mg Prozac 20 mg capsule 3-21 00:00: 00 No 1mg Dose Unknown 3-16 00:00: 00 No Dose Unknown 2022-0 [...] 150 mg 24 hr tablet, extended release 2020- 2 00:00: 00 No 1mg Dose Unknown 2020-07 2 00:00: 00 No Wellbutrin XL 150 [...] y
Durat ion of Therapy: 7 days [facility] levoFLOXaci n (LEVAQUIN) tablet 500 mg 03-17 04:00: 00 03-17 04:22 :00 No 500mg 500 mg, Oral, ONCE, 1 dose, 03/16/21 at 2315, MICHAEL
Re ason for Anti-Infec tive: Documented Infection< br>Documen sherice Infection Site: Respirator y
Durat ion of Therapy: 7 days [facility] morpHINE injection 4 mg 03-17 01:58: 00 03-17 02:13 :00 No 4mg 4 mg, Slow IV Push, ONCE, 1 dose, 03/16/21 at 2100, STAT [facility] ondansetron (ZOFRAN (PF)) injection 4 mg 03-17 01:58: 00 03-17 02:12 :00 No 4mg 4 mg, Slow IV Push, ONCE, 1 dose, 03/16/21 at 2100, MICHAEL [facility] morpHINE injection 4 mg 03-17 01:58: 00 03-17 02:13 :00 No 4mg 4 mg, Slow IV Push, ONCE, 1 dose, 03/16/21 at 2100, STAT [facility] ondansetron (ZOFRAN (PF)) injection 4 mg 03-17 01:58: 00 03-17 02:12 :00 No 4mg 4 mg, Slow IV Push, ONCE, 1 dose, 03/16/21 at 2099, [facility] ipratropium -albuteroL (DUONEB) 0.5 mg-3 mg(2.5 mg base)/3 mL nebulizer solution 3 mL 03-17 01:57: 00 03-17 02:15 :00 No 3mL 3 mL, Inhalation , ONCE, 1 dose, 03/16/21 at 2099, [facility] NaCl 0.9% (NS) IV infusion 1,000 mL 03-17 01:57: 00 03-17 03:07 :00 No 1000mL at 999 mL/hr, Intravenou s, ONCE, 1 dose, 03/16/21 at 2099, [facility] methylpredn isolone sod succ (SOLU-MEDRO L) injection 125 mg 03-17 01:57: 00 03-17 02:11 :00 No 125mg 125 mg, Slow IV Push, ONCE, 1 dose, 03/16/21 at 2099, [facility] ipratropium -albuteroL (DUONEB) 0.5 mg-3 mg(2.5 mg base)/3 mL nebulizer solution 3 mL 03-17 01:57: 00 03-17 02:15 :00 No 3mL 3 mL, Inhalation , ONCE, 1 dose, 03/16/21 at 2099, [facility] ipratropium -albuteroL (DUONEB) 0.5 mg-3 mg(2.5 mg base)/3 mL nebulizer solution 3 mL 03-17 01:57: 00 03-17 02:15 :00 No 3mL 3 mL, Inhalation , ONCE, 1 dose, 03/16/21 at 2099, [facility] NaCl 0.9% (NS) IV infusion 1,000 mL 03-17 01:57: 00 03-17 03:07 :00 No 1000mL at 999 mL/hr, Intravenou s, ONCE, 1 dose, 03/16/21 at 2100, MICHAEL [facility] methylpredn isolone sod succ (SOLU-MEDRO L) injection 125 mg 03-17 01:57: 00 03-17 02:11 :00 No 125mg 125 mg, Slow IV Push, ONCE, 1 dose, 03/16/21 at 2100, STAT [facility] ipratropium -albuteroL (DUONEB) 0.5 mg-3 mg(2.5 mg base)/3 mL nebulizer solution 3 mL 03-17 01:57: 00 03-17 02:15 :00 No 3mL 3 mL, Inhalation , ONCE, 1 dose, 03/16/21 at 2100, MICHAEL [facility] levoFLOXaci n 500 mg tablet 03-17 00:00: 00 03-24 04:59 :00 No [id number] 500mg Take 1 tablet by mouth daily for 6 days. [facility] levoFLOXaci n 500 mg tablet 03-17 00:00: 00 03-24 04:59 :00 No [id number] 500mg Take 1 tablet by mouth daily for 6 days. [facility] levoFLOXaci n 500 mg tablet 03-17 00:00: 00 03-24 04:59 :00 No [id number] 500mg Take 1 tablet by mouth daily for 6 days. [facility] levoFLOXaci n 500 mg tablet 03-17 00:00: 00 03-24 04:59 :00 No [id number] 500mg Take 1 tablet by mouth daily for 6 days. [facility] predniSONE 10 mg tablet 03-17 00:00: 00 03-22 04:59 :00 No [id number] 30mg Take 3 tablets by mouth daily for 4 days. [facility] predniSONE 10 mg tablet 03-17 00:00: 00 03-22 04:59 :00 No [id number] 30mg Take 3 tablets by mouth daily for 4 days. [facility] predniSONE 10 mg tablet 03-17 00:00: 00 03-22 04:59 :00 No [id number] 30mg Take 3 tablets by mouth daily for 4 days. [facility] predniSONE 10 mg tablet 03-17 00:00: 00 03-22 04:59 :00 No [id number] 30mg Take 3 tablets by mouth daily for 4 days. [facility] albuterol (VENTOLIN) inhaler 4 Puff 03-15 01:45: 00 03-15 00:44 :00 No [id number] 4{puff} 4 Puff, Inhalation , ONCE, 1 dose, [facility] 03/14/21 at 2044, Routine [facility] dexamethaso ne (DECADRON) injection 10 mg 03-15 01:45: 00 03-15 00:45 :00 No [id number] 10mg 10 mg, Intramuscu lar, ONCE, 1 dose, [facility] 03/14/21 at 2044, Routine [facility] albuterol 2.5 mg /3 mL (0.083 %) nebulizer solution 03-15 00:00: 00 Yes [id number] 2.5mg Inhale 3 mL every 4 (four) hours as needed for Wheezing or Shortness of Breath. [facility] albuterol 2.5 mg /3 mL (0.083 %) nebulizer solution 03-15 00:00: 00 Yes [id number] 2.5mg Inhale 3 mL every 4 (four) hours as needed for Wheezing or Shortness of Breath. [facility] albuterol 2.5 mg /3 mL (0.083 %) nebulizer solution 03-15 00:00: 00 Yes [id number] 2.5mg Inhale 3 mL every 4 (four) hours as needed for Wheezing or Shortness of Breath. [facility] albuterol 2.5 mg /3 mL (0.083 %) nebulizer solution 03-15 00:00: 00 Yes [id number] 2.5mg Inhale 3 mL every 4 (four) hours as needed for Wheezing or Shortness of Breath. [facility] albuterol 2.5 mg /3 mL (0.083 %) nebulizer solution 03-15 00:00: 00 Yes [id number] 2.5mg Inhale 3 mL every 4 (four) hours as needed for Wheezing or Shortness of Breath. [facility] albuterol 2.5 mg /3 mL (0.083 %) nebulizer solution 03-15 00:00: 00 Yes [id number] 2.5mg Inhale 3 mL every 4 (four) hours as needed for Wheezing or Shortness of Breath. [facility] albuterol 2.5 mg /3 mL (0.083 %) nebulizer solution 03-15 00:00: 00 Yes [id number] 2.5mg Inhale 3 mL every 4 (four) hours as needed for Wheezing or Shortness of Breath. [facility] albuterol 2.5 mg /3 mL (0.083 %) nebulizer solution 03-15 00:00: 00 Yes [id number] 2.5mg Inhale 3 mL every 4 (four) hours as needed for Wheezing or Shortness of Breath. [facility] albuterol 2.5 mg /3 mL (0.083 %) nebulizer solution 03-15 00:00: 00 Yes [id number] 2.5mg Inhale 3 mL every 4 (four) hours as needed for Wheezing or Shortness of Breath. [facility] albuterol 2.5 mg /3 mL (0.083 %) nebulizer solution 03-15 00:00: 00 Yes [id number] 2.5mg Inhale 3 mL every 4 (four) hours as needed for Wheezing or Shortness of Breath. [facility] albuterol 2.5 mg /3 mL (0.083 %) nebulizer solution 03-15 00:00: 00 Yes [id number] 2.5mg Inhale 3 mL every 4 (four) hours as needed for Wheezing or Shortness of Breath. [facility] albuterol 2.5 mg /3 mL (0.083 %) nebulizer solution 03-15 00:00: 00 Yes [id number] 2.5mg Inhale 3 mL every 4 (four) hours as needed for Wheezing or Shortness of Breath. [facility] albuterol 2.5 mg /3 mL (0.083 %) nebulizer solution 03-15 00:00: 00 Yes [id number] 2.5mg Inhale 3 mL every 4 (four) hours as needed for Wheezing or Shortness of Breath. [facility] albuterol 2.5 mg /3 mL (0.083 %) nebulizer solution 03-15 00:00: 00 Yes [id number] 2.5mg Inhale 3 mL every 4 (four) hours as needed for Wheezing or Shortness of Breath. [facility] albuterol 2.5 mg /3 mL (0.083 %) nebulizer solution 03-15 00:00: 00 Yes [id number] 2.5mg Inhale 3 mL every 4 (four) hours as needed for Wheezing or Shortness of Breath. [facility] albuterol 2.5 mg /3 mL (0.083 %) nebulizer solution 03-15 00:00: 00 Yes [id number] 2.5mg Inhale 3 mL every 4 (four) hours as needed for Wheezing or Shortness of Breath. [facility] albuterol 2.5 mg /3 mL (0.083 %) nebulizer solution 03-15 00:00: 00 Yes [id number] 2.5mg Inhale 3 mL every 4 (four) hours as needed for Wheezing or Shortness of Breath. [facility] albuterol 2.5 mg /3 mL (0.083 %) nebulizer solution 03-15 00:00: 00 Yes [id number] 2.5mg Inhale 3 mL every 4 (four) hours as needed for Wheezing or Shortness of Breath. [facility] albuterol 2.5 mg /3 mL (0.083 %) nebulizer solution 03-15 00:00: 00 Yes [id number] 2.5mg Inhale 3 mL every 4 (four) hours as needed for Wheezing or Shortness of Breath. [facility] levETIRAcet am (KEPPRA) in NACL (ISO-OS) 1,000 mg/100 mL RTU 02-19 20:15: 00 02-19 19:30 :00 No 1000mg 1,000 mg, IV Infusion, ONCE, 1 dose, Thu02/19/21 at 1515, Administer over 15 Minutes, 100 mL [facility] levetiracet am (KEPPRA ORAL) 02-19 19:45: 33 Yes Take by mouth. [facility] levetiracet am (KEPPRA ORAL) 02-19 19:45: 33 Yes Take by mouth. [facility] levetiracet am (KEPPRA ORAL) 02-19 19:45: 33 Yes Take by mouth. [facility] levetiracet am (KEPPRA ORAL) 02-19 19:45: 33 Yes Take by mouth. [facility] levetiracet am (KEPPRA ORAL) 02-19 19:45: 33 Yes Take by mouth. [facility] levetiracet am (KEPPRA ORAL) 02-19 19:45: 33 Yes Take by mouth. [facility] LISINOPRIL- HYDROCHLORO THIAZIDE ORAL 02-19 19:41: 15 02-19 00:00 :00 No Take by mouth. [facility] dicyclomine (BENTYL) injection 20 mg 02-19 19:15: 00 02-19 19:04 :00 No 20mg 20 mg, Intramuscu lar, ONCE, 1 dose, Thu02/19/21 at 1415, Routine [facility] proMETHazin e (PHENERGAN) 25 mg in NaCl 0.9% (NS) 50 mL piggyback 02-19 19:15: 00 02-19 19:03 :00 No 25mg 25 mg, IV Piggyback, ONCE, 1 dose, 02/19/21 at 1415, 50 mL [facility] morpHINE injection 4 mg 02-19 17:15: 00 02-19 17:05 :00 No 4mg 4 mg, Slow IV Push, ONCE, 1 dose, 02/19/21 at 1215, STAT [facility] NaCl 0.9% (NS) bolus infusion 1,000 mL 02-19 17:15: 00 02-19 19:04 :00 No 1000mL at 999 mL/hr, 1,000 mL, IV Infusion, ONCE, 1 dose, 02/19/21 at 1215, STAT [facility] ondansetron (ZOFRAN (PF)) injection 4 mg 02-19 17:00: 00 02-19 15:59 :00 No 4mg 4 mg, Slow IV Push, ONCE, 1 dose, 02/19/21 at 1200, MICHAEL [facility] iopamidol (ISOVUE 370-500 mL) injection 100 mL 02-19 16:35: 00 02-19 16:45 :00 No [id number] 100mL 100 mL, Intravenou s, ONCE, 1 dose, 02/19/21 at 1145, Routine [facility] levetiracet am (KEPPRA ORAL) 02-19 14:45: 33 Yes Take by mouth. [facility] levetiracet am (KEPPRA ORAL) 02-19 14:45: 33 Yes Take by mouth. [facility] levetiracet am (KEPPRA ORAL) 02-19 14:45: 33 Yes Take by mouth. [facility] levetiracet am (KEPPRA ORAL) 02-19 14:45: 33 Yes Take by mouth. [facility] levetiracet am (KEPPRA ORAL) 02-19 14:45: 33 Yes Take by mouth. [facility] proMETHazin e 25 mg tablet 0 8 00:00: 00 Yes [id number] 25mg Take 1 tablet by mouth every 6 (six) hours as needed for Nausea and Vomiting (N/V). [facility] dicyclomine 20 mg tablet 0 8- 00:00: 00 Yes [id number] 20mg Take 1 tablet by mouth 4 (four) times daily as needed for Abdominal pain. [facility] proMETHazin e 25 mg tablet 0 02-19 00:00: 00 Yes [id number] 25mg Take 1 tablet by mouth every 6 (six) hours as needed for Nausea and Vomiting (N/V). [facility] dicyclomine 20 mg tablet 0 02-19 00:00: 00 Yes [id number] 20mg Take 1 tablet by mouth 4 (four) times daily as needed for Abdominal pain. [facility] proMETHazin e 25 mg tablet 0 02-19 00:00: 00 Yes [id number] 25mg Take 1 tablet by mouth every 6 (six) hours as needed for Nausea and Vomiting (N/V). [facility] dicyclomine 20 mg tablet 0 02-19 00:00: 00 Yes [id number] 20mg Take 1 tablet by mouth 4 (four) times daily as needed for Abdominal pain. [facility] proMETHazin e 25 mg tablet 0 02-19 00:00: 00 Yes [id number] 25mg Take 1 tablet by mouth every 6 (six) hours as needed for Nausea and Vomiting (N/V). [facility] dicyclomine 20 mg tablet 2020-0 - 00:00: 00 Yes [id number] 20mg Take 1 tablet by mouth 4 (four) times daily as needed for Abdominal pain. [facility] proMETHazin e 25 mg tablet 2020-0 8- 00:00: 00 Yes [id number] 25mg Take 1 tablet by mouth every 6 (six) hours as needed for Nausea and Vomiting (N/V). [facility] dicyclomine 20 mg tablet 2020-0 8-03 00:00: 00 Yes [id number] 20mg Take 1 tablet by mouth 4 (four) times daily as needed for Abdominal pain. [facility] proMETHazin e 25 mg tablet 0 02-19 00:00: 00 Yes [id number] 25mg Take 1 tablet by mouth every 6 (six) hours as needed for Nausea and Vomiting (N/V). [facility] dicyclomine 20 mg tablet 0 02-19 00:00: 00 Yes [id number] 20mg Take 1 tablet by mouth 4 (four) times daily as needed for Abdominal pain. [facility] proMETHazin e 25 mg tablet 02-19 00:00: 00 Yes [id number] 25mg Take 1 tablet by mouth every 6 (six) hours as needed for Nausea and Vomiting (N/V). [facility] dicyclomine 20 mg tablet 02-19 00:00: 00 Yes [id number] 20mg Take 1 tablet by mouth 4 (four) times daily as needed for Abdominal pain. [facility] proMETHazin e 25 mg tablet 02-19 00:00: 00 Yes [id number] 25mg Take 1 tablet by mouth every 6 (six) hours as needed for Nausea and Vomiting (N/V). [facility] dicyclomine 20 mg tablet 0 02-19 00:00: 00 Yes [id number] 20mg Take 1 tablet by mouth 4 (four) times daily as needed for Abdominal pain. [facility] proMETHazin e 25 mg tablet 0 02-19 00:00: 00 Yes [id number] 25mg Take 1 tablet by mouth every 6 (six) hours as needed for Nausea and Vomiting (N/V). [facility] dicyclomine 20 mg tablet 0 02-19 00:00: 00 Yes [id number] 20mg Take 1 tablet by mouth 4 (four) times daily as needed for Abdominal pain. [facility] proMETHazin e 25 mg tablet 2020-0 02-19 00:00: 00 Yes [id number] 25mg Take 1 tablet by mouth every 6 (six) hours as needed for Nausea and Vomiting (N/V). [facility] dicyclomine 20 mg tablet 0 02-19 00:00: 00 Yes [id number] 20mg Take 1 tablet by mouth 4 (four) times daily as needed for Abdominal pain. [facility] proMETHazin e 25 mg tablet 0 02-19 00:00: 00 Yes [id number] 25mg Take 1 tablet by mouth every 6 (six) hours as needed for Nausea and Vomiting (N/V). [facility] dicyclomine 20 mg tablet 0 02-19 00:00: 00 Yes [id number] 20mg Take 1 tablet by mouth 4 (four) times daily as needed for Abdominal pain. [facility] proMETHazin e 25 mg tablet 02-19 00:00: 00 Yes [id number] 25mg Take 1 tablet by mouth every 6 (six) hours as needed for Nausea and Vomiting (N/V). [facility] dicyclomine 20 mg tablet 02-19 00:00: 00 Yes [id number] 20mg Take 1 tablet by mouth 4 (four) times daily as needed for Abdominal pain. [facility] proMETHazin e 25 mg tablet 02-19 00:00: 00 Yes [id number] 25mg Take 1 tablet by mouth every 6 (six) hours as needed for Nausea and Vomiting (N/V). [facility] dicyclomine 20 mg tablet 02-19 00:00: 00 Yes [id number] 20mg Take 1 tablet by mouth 4 (four) times daily as needed for Abdominal pain. [facility] proMETHazin e 25 mg tablet 0 02-19 00:00: 00 Yes [id number] 25mg Take 1 tablet by mouth every 6 (six) hours as needed for Nausea and Vomiting (N/V). [facility] dicyclomine 20 mg tablet 0 - 00:00: 00 Yes [id number] 20mg Take 1 tablet by mouth 4 (four) times daily as needed for Abdominal pain. [facility] proMETHazin e 25 mg tablet 02-19 00:00: 00 Yes [id number] 25mg Take 1 tablet by mouth every 6 (six) hours as needed for Nausea and Vomiting (N/V). [facility] dicyclomine 20 mg tablet 02-19 00:00: 00 Yes [id number] 20mg Take 1 tablet by mouth 4 (four) times daily as needed for Abdominal pain. [facility] proMETHazin e 25 mg tablet 02-19 00:00: 00 Yes [id number] 25mg Take 1 tablet by mouth every 6 (six) hours as needed for Nausea and Vomiting (N/V). [facility] dicyclomine 20 mg tablet 02-19 00:00: 00 Yes [id number] 20mg Take 1 tablet by mouth 4 (four) times daily as needed for Abdominal pain. [facility] proMETHazin e 25 mg tablet 02-19 00:00: 00 Yes [id number] 25mg Take 1 tablet by mouth every 6 (six) hours as needed for Nausea and Vomiting (N/V). [facility] dicyclomine 20 mg tablet 02-19 00:00: 00 Yes [id number] 20mg Take 1 tablet by mouth 4 (four) times daily as needed for Abdominal pain. [facility] proMETHazin e 25 mg tablet 02-19 00:00: 00 Yes [id number] 25mg Take 1 tablet by mouth every 6 (six) hours as needed for Nausea and Vomiting (N/V). [facility] dicyclomine 20 mg tablet 0 02-19 00:00: 00 Yes [id number] 20mg Take 1 tablet by mouth 4 (four) times daily as needed for Abdominal pain. [facility] proMETHazin e 25 mg tablet 02-19 00:00: 00 Yes [id number] 25mg Take 1 tablet by mouth every 6 (six) hours as needed for Nausea and Vomiting (N/V). [facility] dicyclomine 20 mg tablet 0 02-19 00:00: 00 Yes [id number] 20mg Take 1 tablet by mouth 4 (four) times daily as needed for Abdominal pain. [facility] proMETHazin e 25 mg tablet 02-19 00:00: 00 Yes [id number] 25mg Take 1 tablet by mouth every 6 (six) hours as needed for Nausea and Vomiting (N/V). [facility] dicyclomine 20 mg tablet 02-19 00:00: 00 Yes [id number] 20mg Take 1 tablet by mouth 4 (four) times daily as needed for Abdominal pain. [facility] ZONISAMIDE 100 mg capsule 11-15 00:00: 00 Yes TAKE 1 CAPSULE BY MOUTH TWICE A DAY [facility] ZONISAMIDE 100 mg capsule 11-15 00:00: 00 02-19 00:00 :00 No TAKE 1 CAPSULE BY MOUTH TWICE A DAY [facility] ondansetron (ZOFRAN) 4 mg tablet 02-09 20:05: 01 Yes 4mg Take 4 mg by mouth every 8 (eight) hours as needed. [facility] pantoprazol e (PROTONIX) 40 mg EC tablet 02-09 20:05: 01 Yes 40mg Take 40 mg by mouth daily. [facility] ondansetron (ZOFRAN) 4 mg tablet 02-09 20:05: 01 Yes 4mg Take 4 mg by mouth every 8 (eight) hours as needed. [facility] pantoprazol e (PROTONIX) 40 mg EC tablet 02-09 20:05: 01 Yes 40mg Take 40 mg by mouth daily. [facility] LISINOPRIL- HYDROCHLORO THIAZIDE ORAL 02-09 20:05: 01 Yes Take by mouth. [facility] ondansetron (ZOFRAN) 4 mg tablet 02-09 20:05: 01 Yes 4mg Take 4 mg by mouth every 8 (eight) hours as needed. [facility] pantoprazol e (PROTONIX) 40 mg EC tablet 02-09 20:05: 01 Yes 40mg Take 40 mg by mouth daily. [facility] ondansetron (ZOFRAN) 4 mg tablet 02-09 20:05: 01 Yes 4mg Take 4 mg by mouth every 8 (eight) hours as needed. [facility] pantoprazol e (PROTONIX) 40 mg EC tablet 02-09 20:05: 01 Yes 40mg Take 40 mg by mouth daily. [facility] ondansetron (ZOFRAN) 4 mg tablet 02-09 20:05: 01 Yes 4mg Take 4 mg by mouth every 8 (eight) hours as needed. [facility] pantoprazol e (PROTONIX) 40 mg EC tablet 02-09 20:05: 01 Yes 40mg Take 40 mg by mouth daily. [facility] ondansetron (ZOFRAN) 4 mg tablet 02-09 20:05: 01 Yes 4mg Take 4 mg by mouth every 8 (eight) hours as needed. [facility] pantoprazol e (PROTONIX) 40 mg EC tablet 02-09 20:05: 01 Yes 40mg Take 40 mg by mouth daily. [facility] ondansetron (ZOFRAN) 4 mg tablet 02-09 20:05: 01 Yes 4mg Take 4 mg by mouth every 8 (eight) hours as needed. [facility] pantoprazol e (PROTONIX) 40 mg EC tablet 02-09 20:05: 01 Yes 40mg Take 40 mg by mouth daily. [facility] lisinopril- hydrochloro thiazide 20-12.5 mg per tablet 02-09 20:03: 30 Yes 1{tbl} Take 1 tablet by mouth daily. [facility] lisinopril- hydrochloro thiazide 20-12.5 mg per tablet 02-09 20:03: 30 Yes 1{tbl} Take 1 tablet by mouth daily. [facility] lisinopril- hydrochloro thiazide 20-12.5 mg per tablet 02-09 20:03: 30 Yes 1{tbl} Take 1 tablet by mouth daily. [facility] lisinopril- hydrochloro thiazide 20-12.5 mg per tablet 02-09 20:03: 30 Yes 1{tbl} Take 1 tablet by mouth daily. [facility] lisinopril- hydrochloro thiazide 20-12.5 mg per tablet 02-09 20:03: 30 Yes 1{tbl} Take 1 tablet by mouth daily. [facility] lisinopril- hydrochloro thiazide 20-12.5 mg per tablet 02-09 20:03: 30 Yes 1{tbl} Take 1 tablet by mouth daily. [facility] lisinopril- hydrochloro thiazide 20-12.5 mg per tablet 02-09 20:03: 30 Yes 1{tbl} Take 1 tablet by mouth daily. [facility] omega-3 fatty acids-vitam in E (FISH OIL) 1,000 mg capsule 02-09 19:59: 52 Yes 1g Take 1 g by mouth daily. [facility] omega-3 fatty acids-vitam in E (FISH OIL) 1,000 mg capsule 02-09 19:59: 52 Yes 1g Take 1 g by mouth daily. [facility] omega-3 fatty acids-vitam in E (FISH OIL) 1,000 mg capsule 02-09 19:59: 52 Yes 1g Take 1 g by mouth daily. [facility] omega-3 fatty acids-vitam in E (FISH OIL) 1,000 mg capsule 02-09 19:59: 52 Yes 1g Take 1 g by mouth daily. [facility] omega-3 fatty acids-vitam in E (FISH OIL) 1,000 mg capsule 02-09 19:59: 52 Yes 1g Take 1 g by mouth daily. [facility] omega-3 fatty acids-vitam in E (FISH OIL) 1,000 mg capsule 02-09 19:59: 52 Yes 1g Take 1 g by mouth daily. [facility] omega-3 fatty acids-vitam in E (FISH OIL) 1,000 mg capsule 02-09 19:59: 52 Yes 1g Take 1 g by mouth daily. [facility] MULTIVITAMI N ORAL 02-09 19:58: 14 Yes 1{tbl} Take 1 Tab by mouth daily. [facility] loratadine (CLARITIN LIQUI-GEL) 10 mg capsule 02-09 19:58: 14 Yes Take by mouth daily. [facility] 02-09 19:58: 14 Yes 1{tbl} Take 1 Tab by mouth daily. [facility] loratadine (CLARITIN LIQUI-GEL) 10 mg capsule 02-09 19:58: 14 Yes Take by mouth daily. [facility] MULTIVITAMI N ORAL 02-09 19:58: 14 Yes 1{tbl} Take 1 Tab by mouth daily. [facility] loratadine (CLARITIN LIQUI-GEL) 10 mg capsule 02-09 19:58: 14 Yes Take by mouth daily. [facility] MULTIVITAMI N ORAL 02-09 19:58: 14 Yes 1{tbl} Take 1 Tab by mouth daily. [facility] loratadine (CLARITIN LIQUI-GEL) 10 mg capsule 02-09 19:58: 14 Yes Take by mouth daily. [facility] MULTIVITAMI N ORAL 02-09 19:58: 14 Yes 1{tbl} Take 1 Tab by mouth daily. [facility] loratadine (CLARITIN LIQUI-GEL) 10 mg capsule 02-09 19:58: 14 Yes Take by mouth daily. [facility]AL 02-09 19:58: 14 Yes 1{tbl} Take 1 Tab by mouth daily. [facility] loratadine (CLARITIN LIQUI-GEL) 10 mg capsule 02-09 19:58: 14 Yes Take by mouth daily. [facility] MULTIVITAMI N ORAL 02-09 19:58: 14 Yes 1{tbl} Take 1 Tab by mouth daily. [facility] loratadine (CLARITIN LIQUI-GEL) 10 mg capsule 02-09 19:58: 14 Yes Take by mouth daily. [facility] ondansetron (ZOFRAN) 4 mg tablet 02-09 15:05: 01 Yes 4mg Take 4 mg by mouth every 8 (eight) hours as needed. [facility] pantoprazol e (PROTONIX) 40 mg EC tablet 02-09 15:05: 01 Yes 40mg Take 40 mg by mouth daily. [facility] ondansetron (ZOFRAN) 4 mg tablet 02-09 15:05: 01 Yes 4mg Take 4 mg by mouth every 8 (eight) hours as needed. [facility] pantoprazol e (PROTONIX) 40 mg EC tablet 02-09 15:05: 01 Yes 40mg Take 40 mg by mouth daily. [facility] ondansetron (ZOFRAN) 4 mg tablet 02-09 15:05: 01 Yes 4mg Take 4 mg by mouth every 8 (eight) hours as needed. [facility] pantoprazol e (PROTONIX) 40 mg EC tablet 02-09 15:05: 01 Yes 40mg Take 40 mg by mouth daily. [facility] ondansetron (ZOFRAN) 4 mg tablet 02-09 15:05: 01 Yes 4mg Take 4 mg by mouth every 8 (eight) hours as needed. [facility] pantoprazol e (PROTONIX) 40 mg EC tablet 02-09 15:05: 01 Yes 40mg Take 40 mg by mouth daily. [facility] ondansetron (ZOFRAN) 4 mg tablet 02-09 15:05: 01 Yes 4mg Take 4 mg by mouth every 8 (eight) hours as needed. [facility] pantoprazol e (PROTONIX) 40 mg EC tablet 02-09 15:05: 01 Yes 40mg Take 40 mg by mouth daily. [facility] lisinopril- hydrochloro thiazide 20-12.5 mg per tablet 02-09 15:03: 30 Yes 1{tbl} Take 1 tablet by mouth daily. [facility] lisinopril- hydrochloro thiazide 20-12.5 mg per tablet 02-09 15:03: 30 Yes 1{tbl} Take 1 tablet by mouth daily. [facility] lisinopril- hydrochloro thiazide 20-12.5 mg per tablet 02-09 15:03: 30 Yes 1{tbl} Take 1 tablet by mouth daily. [facility] lisinopril- hydrochloro thiazide 20-12.5 mg per tablet 02-09 15:03: 30 Yes 1{tbl} Take 1 tablet by mouth daily. [facility] lisinopril- hydrochloro thiazide 20-12.5 mg per tablet 02-09 15:03: 30 Yes 1{tbl} Take 1 tablet by mouth daily. [facility] omega-3 fatty acids-vitam in E (FISH OIL) 1,000 mg capsule 02-09 14:59: 52 Yes 1g Take 1 g by mouth daily. [facility] omega-3 fatty acids-vitam in E (FISH OIL) 1,000 mg capsule 02-09 14:59: 52 Yes 1g Take 1 g by mouth daily. [facility] omega-3 fatty acids-vitam in E (FISH OIL) 1,000 mg capsule 02-09 14:59: 52 Yes 1g Take 1 g by mouth daily. [facility] omega-3 fatty acids-vitam in E (FISH OIL) 1,000 mg capsule 02-09 14:59: 52 Yes 1g Take 1 g by mouth daily. [facility] omega-3 fatty acids-vitam in E (FISH OIL) 1,000 mg capsule 02-09 14:59: 52 Yes 1g Take 1 g by mouth daily. [facility] MULTIVITAMI N ORAL 02-09 14:58: 14 Yes 1{tbl} Take 1 Tab by mouth daily. [facility] loratadine (CLARITIN LIQUI-GEL) 10 mg capsule 02-09 14:58: 14 Yes Take by mouth daily. [facility] MULTIVITAMI N ORAL 02-09 14:58: 14 Yes 1{tbl} Take 1 Tab by mouth daily. [facility] loratadine (CLARITIN LIQUI-GEL) 10 mg capsule 02-09 14:58: 14 Yes Take by mouth daily. [facility] MULTIVITAMI N ORAL 02-09 14:58: 14 Yes 1{tbl} Take 1 Tab by mouth daily. [facility] loratadine (CLARITIN LIQUI-GEL) 10 mg capsule 02-09 14:58: 14 Yes Take by mouth daily. [facility] MULTIVITAMI N ORAL 02-09 14:58: 14 Yes 1{tbl} Take 1 Tab by mouth daily. [facility] loratadine (CLARITIN LIQUI-GEL) 10 mg capsule 02-09 14:58: 14 Yes Take by mouth daily. [facility] MULTIVITAMI N ORAL 02-09 14:58: 14 Yes 1{tbl} Take 1 Tab by mouth daily. [facility] loratadine (CLARITIN LIQUI-GEL) 10 mg capsule 02-09 14:58: 14 Yes Take by mouth daily. [facility] proMETHazin e (PHENERGAN) 25 mg tablet 11-20 00:00: 00 Yes 25mg Take 1 tablet by mouth every 6 (six) hours as needed for Nausea and Vomiting (N/V). [facility] proMETHazin e (PHENERGAN) 25 mg tablet 11-20 00:00: 00 02-19 00:00 :00 No 25mg Take 1 tablet by mouth every 6 (six) hours as needed for Nausea and Vomiting (N/V). [facility] carvedilol (COREG) 6.25 mg tablet 09-19 00:00: 00 Yes 6.25mg Take 1 Tab by mouth 2 (two) times daily with meals. [facility] amLODIPine (NORVASC) 10 mg tablet 09-19 00:00: 00 Yes 10mg Take 1 Tab by mouth daily. [facility] lisinopril (PRINIVIL,Z ESTRIL) 40 mg tablet 09-19 00:00: 00 Yes 40mg Take 1 Tab by mouth daily. [facility] carvedilol (COREG) 6.25 mg tablet 09-19 00:00: 00 Yes 6.25mg Take 1 Tab by mouth 2 (two) times daily with meals. [facility] amLODIPine (NORVASC) 10 mg tablet 09-19 00:00: 00 Yes 10mg Take 1 Tab by mouth daily. [facility] lisinopril (PRINIVIL,Z ESTRIL) 40 mg tablet 09-19 00:00: 00 Yes 40mg Take 1 Tab by mouth daily. [facility] carvedilol (COREG) 6.25 mg tablet 09-19 00:00: 00 Yes 6.25mg Take 1 Tab by mouth 2 (two) times daily with meals. [facility] amLODIPine (NORVASC) 10 mg tablet 09-19 00:00: 00 Yes 10mg Take 1 Tab by mouth daily. [facility] lisinopril (PRINIVIL,Z ESTRIL) 40 mg tablet 09-19 00:00: 00 Yes 40mg Take 1 Tab by mouth daily. [facility] carvedilol (COREG) 6.25 mg tablet 09-19 00:00: 00 Yes 6.25mg Take 1 Tab by mouth 2 (two) times daily with meals. [facility] amLODIPine (NORVASC) 10 mg tablet 09-19 00:00: 00 Yes 10mg Take 1 Tab by mouth daily. [facility] lisinopril (PRINIVIL,Z ESTRIL) 40 mg tablet 09-19 00:00: 00 Yes 40mg Take 1 Tab by mouth daily. [facility] carvedilol (COREG) 6.25 mg tablet 09-19 00:00: 00 Yes 6.25mg Take 1 Tab by mouth 2 (two) times daily with meals. [facility] amLODIPine (NORVASC) 10 mg tablet 09-19 00:00: 00 Yes 10mg Take 1 Tab by mouth daily. [facility] lisinopril (PRINIVIL,Z ESTRIL) 40 mg tablet 09-19 00:00: 00 Yes 40mg Take 1 Tab by mouth daily. [facility] carvedilol (COREG) 6.25 mg tablet 09-19 00:00: 00 Yes 6.25mg Take 1 Tab by mouth 2 (two) times daily with meals. [facility] amLODIPine (NORVASC) 10 mg tablet 09-19 00:00: 00 Yes 10mg Take 1 Tab by mouth daily. [facility] lisinopril (PRINIVIL,Z ESTRIL) 40 mg tablet 09-19 00:00: 00 Yes 40mg Take 1 Tab by mouth daily. [facility] carvedilol (COREG) 6.25 mg tablet 09-19 00:00: 00 Yes 6.25mg Take 1 Tab by mouth 2 (two) times daily with meals. [facility] amLODIPine (NORVASC) 10 mg tablet 09-19 00:00: 00 Yes 10mg Take 1 Tab by mouth daily. [facility] lisinopril (PRINIVIL,Z ESTRIL) 40 mg tablet 09-19 00:00: 00 Yes 40mg Take 1 Tab by mouth daily. [facility] carvedilol (COREG) 6.25 mg tablet 09-19 00:00: 00 Yes 6.25mg Take 1 Tab by mouth 2 (two) times daily with meals. [facility] amLODIPine (NORVASC) 10 mg tablet 09-19 00:00: 00 Yes 10mg Take 1 Tab by mouth daily. [facility] lisinopril (PRINIVIL,Z ESTRIL) 40 mg tablet 09-19 00:00: 00 Yes 40mg Take 1 Tab by mouth daily. [facility] carvedilol (COREG) 6.25 mg tablet 09-19 00:00: 00 Yes 6.25mg Take 1 Tab by mouth 2 (two) times daily with meals. [facility] amLODIPine (NORVASC) 10 mg tablet 09-19 00:00: 00 Yes 10mg Take 1 Tab by mouth daily. [facility] lisinopril (PRINIVIL,Z ESTRIL) 40 mg tablet 09-19 00:00: 00 Yes 40mg Take 1 Tab by mouth daily. [facility] carvedilol (COREG) 6.25 mg tablet 09-19 00:00: 00 Yes 6.25mg Take 1 Tab by mouth 2 (two) times daily with meals. [facility] amLODIPine (NORVASC) 10 mg tablet 09-19 00:00: 00 Yes 10mg Take 1 Tab by mouth daily. [facility] lisinopril (PRINIVIL,Z ESTRIL) 40 mg tablet 09-19 00:00: 00 Yes 40mg Take 1 Tab by mouth daily. [facility] carvedilol (COREG) 6.25 mg tablet 09-19 00:00: 00 Yes 6.25mg Take 1 Tab by mouth 2 (two) times daily with meals. [facility] amLODIPine (NORVASC) 10 mg tablet 09-19 00:00: 00 Yes 10mg Take 1 Tab by mouth daily. [facility] lisinopril (PRINIVIL,Z ESTRIL) 40 mg tablet 09-19 00:00: 00 Yes 40mg Take 1 Tab by mouth daily. [facility] carvedilol (COREG) 6.25 mg tablet 09-19 00:00: 00 Yes 6.25mg Take 1 Tab by mouth 2 (two) times daily with meals. [facility] amLODIPine (NORVASC) 10 mg tablet 09-19 00:00: 00 Yes 10mg Take 1 Tab by mouth daily. [facility] lisinopril (PRINIVIL,Z ESTRIL) 40 mg tablet 09-19 00:00: 00 Yes 40mg Take 1 Tab by mouth daily. [facility] carvedilol (COREG) 6.25 mg tablet 09-19 00:00: 00 Yes 6.25mg Take 1 Tab by mouth 2 (two) times daily with meals. [facility] amLODIPine (NORVASC) 10 mg tablet 09-19 00:00: 00 Yes 10mg Take 1 Tab by mouth daily. [facility] lisinopril (PRINIVIL,Z ESTRIL) 40 mg tablet 09-19 00:00: 00 Yes 40mg Take 1 Tab by mouth daily. [facility] carvedilol (COREG) 6.25 mg tablet 09-19 00:00: 00 Yes 6.25mg Take 1 Tab by mouth 2 (two) times daily with meals. [facility] amLODIPine (NORVASC) 10 mg tablet 09-19 00:00: 00 Yes 10mg Take 1 Tab by mouth daily. [facility] lisinopril (PRINIVIL,Z ESTRIL) 40 mg tablet 09-19 00:00: 00 Yes 40mg Take 1 Tab by mouth daily. [facility] carvedilol (COREG) 6.25 mg tablet 09-19 00:00: 00 Yes 6.25mg Take 1 Tab by mouth 2 (two) times daily with meals. [facility] amLODIPine (NORVASC) 10 mg tablet 09-19 00:00: 00 Yes 10mg Take 1 Tab by mouth daily. [facility] lisinopril (PRINIVIL,Z ESTRIL) 40 mg tablet 09-19 00:00: 00 Yes 40mg Take 1 Tab by mouth daily. [facility] carvedilol (COREG) 6.25 mg tablet 09-19 00:00: 00 Yes 6.25mg Take 1 Tab by mouth 2 (two) times daily with meals. [facility] amLODIPine (NORVASC) 10 mg tablet 09-19 00:00: 00 Yes 10mg Take 1 Tab by mouth daily. [facility] lisinopril (PRINIVIL,Z ESTRIL) 40 mg tablet 09-19 00:00: 00 Yes 40mg Take 1 Tab by mouth daily. [facility] carvedilol (COREG) 6.25 mg tablet 09-19 00:00: 00 Yes 6.25mg Take 1 Tab by mouth 2 (two) times daily with meals. [facility] amLODIPine (NORVASC) 10 mg tablet 09-19 00:00: 00 Yes 10mg Take 1 Tab by mouth daily. [facility] lisinopril (PRINIVIL,Z ESTRIL) 40 mg tablet 09-19 00:00: 00 Yes 40mg Take 1 Tab by mouth daily. [facility] carvedilol (COREG) 6.25 mg tablet 09-19 00:00: 00 Yes 6.25mg Take 1 Tab by mouth 2 (two) times daily with meals. [facility] amLODIPine (NORVASC) 10 mg tablet 09-19 00:00: 00 Yes 10mg Take 1 Tab by mouth daily. [facility] lisinopril (PRINIVIL,Z ESTRIL) 40 mg tablet 09-19 00:00: 00 Yes 40mg Take 1 Tab by mouth daily. [facility] carvedilol (COREG) 6.25 mg tablet 09-19 00:00: 00 Yes 6.25mg Take 1 Tab by mouth 2 (two) times daily with meals. [facility] amLODIPine (NORVASC) 10 mg tablet 09-19 00:00: 00 Yes 10mg Take 1 Tab by mouth daily. [facility] lisinopril (PRINIVIL,Z ESTRIL) 40 mg tablet 09-19 00:00: 00 Yes 40mg Take 1 Tab by mouth daily. [facility] carvedilol (COREG) 6.25 mg tablet 09-19 00:00: 00 Yes 6.25mg Take 1 Tab by mouth 2 (two) times daily with meals. [facility] amLODIPine (NORVASC) 10 mg tablet 09-19 00:00: 00 Yes 10mg Take 1 Tab by mouth daily. [facility] lisinopril (PRINIVIL,Z ESTRIL) 40 mg tablet 09-19 00:00: 00 Yes 40mg Take 1 Tab by mouth daily. [facility] carvedilol (COREG) 6.25 mg tablet 09-19 00:00: 00 Yes 6.25mg Take 1 Tab by mouth 2 (two) times daily with meals. [facility] amLODIPine (NORVASC) 10 mg tablet 09-19 00:00: 00 Yes 10mg Take 1 Tab by mouth daily. [facility] lisinopril (PRINIVIL,Z ESTRIL) 40 mg tablet 09-19 00:00: 00 Yes 40mg Take 1 Tab by mouth daily. [facility] Immunizations Ordered Immunization Name Filled Immunization Name Date Status Comments Source SARS-COV-2 COVID-19 PFIZER BA-SUCROSE VACCINE (ROSE TOP) 2022-02-19 00:00:00 Completed [facility] SARS-COV-2 COVID-19 PFIZER AB-SUCROSE VACCINE (ROSE TOP) 2022-02-19 00:00:00 Completed [facility] SARS-COV-2 COVID-19 PFIZER BA-SUCROSE VACCINE (ROSE TOP) 2022-02-19 00:00:00 Completed [facility] SARS-COV-2 COVID-19 PFIZER BA-SUCROSE VACCINE (ROSE TOP) 2022-02-19 00:00:00 Completed [facility] SARS-COV-2 COVID-19 PFIZER BA-SUCROSE VACCINE (ROSE TOP) 2022-02-19 00:00:00 Completed [facility] SARS-COV-2 COVID-19 PFIZER BA-SUCROSE VACCINE (ROSE TOP) 2022-02-19 00:00:00 Completed [facility] SARS-COV-2 COVID-19 PFIZER BA-SUCROSE VACCINE (ROSE TOP) 2022-02-19 00:00:00 Completed [facility] SARS-COV-2 COVID-19 PFIZER BA-SUCROSE VACCINE (ROSE TOP) 2022-02-19 00:00:00 Completed [facility] SARS-COV-2 COVID-19 PFIZER BA-SUCROSE VACCINE (ROSE TOP) 2022-02-19 00:00:00 Completed [facility] SARS-COV-2 COVID-19 PFIZER VACCINE 2021-05-24 00:00:00 Completed [facility] SARS-COV-2 COVID-19 PFIZER VACCINE 2021-05-24 00:00:00 Completed [facility] SARS-COV-2 COVID-19 PFIZER VACCINE 2021-05-24 00:00:00 Completed [facility] SARS-COV-2 COVID-19 PFIZER VACCINE 2021-05-24 00:00:00 Completed [facility] SARS-COV-2 COVID-19 PFIZER VACCINE 2021-05-24 00:00:00 Completed [facility] SARS-COV-2 COVID-19 PFIZER VACCINE 2021-05-24 00:00:00 Completed [facility] SARS-COV-2 COVID-19 PFIZER VACCINE 2021-05-24 00:00:00 Completed [facility] SARS-COV-2 COVID-19 PFIZER VACCINE 2021-05-24 00:00:00 Completed [facility] SARS-COV-2 COVID-19 PFIZER VACCINE 2021-05-24 00:00:00 Completed [facility] SARS-COV-2 COVID-19 PFIZER VACCINE 2021-05-24 00:00:00 Completed [facility] SARS-COV-2 COVID-19 PFIZER VACCINE 2021-05-24 00:00:00 Completed [facility] SARS-COV-2 COVID-19 PFIZER VACCINE 2021-05-03 00:00:00 Completed [facility] SARS-COV-2 COVID-19 PFIZER VACCINE 2021-05-03 00:00:00 Completed [facility] SARS-COV-2 COVID-19 PFIZER VACCINE 2021-05-03 00:00:00 Completed [facility] SARS-COV-2 COVID-19 PFIZER VACCINE 2021-05-03 00:00:00 Completed [facility] SARS-COV-2 COVID-19 PFIZER VACCINE 2021-05-03 00:00:00 Completed [facility] SARS-COV-2 COVID-19 PFIZER VACCINE 2021-05-03 00:00:00 Completed [facility] SARS-COV-2 COVID-19 PFIZER VACCINE 2021-05-03 00:00:00 Completed [facility] SARS-COV-2 COVID-19 PFIZER VACCINE 2021-05-03 00:00:00 Completed [facility] SARS-COV-2 COVID-19 PFIZER VACCINE 2021-05-03 00:00:00 Completed [facility] SARS-COV-2 COVID-19 PFIZER VACCINE 2021-05-03 00:00:00 Completed [facility] SARS-COV-2 COVID-19 PFIZER VACCINE 2021-05-03 00:00:00 Completed [facility] SARS-COV-2 COVID-19 PFIZER VACCINE 2021-05-03 00:00:00 Completed [facility] SARS-COV-2 COVID-19 PFIZER VACCINE Unknown Completed [facility] SARS-COV-2 COVID-19 PFIZER VACCINE Unknown Completed [facility] SARS-COV-2 COVID-19 PFIZER BA-SUCROSE VACCINE (ROSE TOP) Unknown Completed [facility] Vital Signs Vital Name Observation Time Observation Value Comments S ource Systolic blood pressure 2023-09-11 17:27:00 122 mm[Hg] Cynthia Seybo ld - External Diastolic blood pressure 2023-09-11 17:27:00 74 mm[Hg] Cynthia ybo ld - External Heart rate 2023-09-11 17:27:00 80 /min Kel y Seybold - External Body temperature 2023-09-11 17:27:00 36.72 Radha Cynthia ybold - External Respiratory rate 2023-09-11 17:27:00 18 /min Cynthia Macdonaldybold - External Body height 2023-09-11 17:27:00 159.4 cm Esthela ey Seybold - External Body weight 2023-09-11 17:27:00 80.74 kg Esthela ey Seybold - External BMI 2023-09-11 17:27:00 31.78 kg/m2 Esthela shoemaker Seybold - External Oxygen saturation in Arterial blood by Pulse oximetry 2023-09-11 17:27:00 97 /min Cynthia ybo ld - External Systolic blood pressure 2023-08-12 21:00:00 130 mm[Hg] [facility] Diastolic blood pressure 2023-08-12 21:00:00 85 mm[Hg] [facility] Heart rate 2023-08-12 21:00:00 106 /min [facility] Respiratory rate 2023-08-12 21:00:00 14 /min [facility] Oxygen saturation in Arterial blood by Pulse oximetry 2023-08-12 21:00:00 95 /min [facility] Body temperature 2023-08-12 20:34:54 37.22 Radha [facility] Body height 2023-08-12 19:47:00 157.5 cm [facility] Body weight 2023-08-12 19:47:00 81.647 kg [facility] BMI 2023-08-12 19:47:00 32.92 kg/m2 [facility] WEIGHT 2023-06-16 05:26:00 86.047 kg [...] Systolic blood pressure 2022-12-11 20:00:00 142 mm[Hg] [facility] Diastolic blood pressure 2022-12-11 20:00:00 90 mm[Hg] [facility] Respiratory rate 2022-12-11 20:00:00 24 /min [facility] Heart rate 2022-12-11 18:00:00 101 /min [facility] Oxygen saturation in Arterial blood by Pulse oximetry 2022-12-11 18:00:00 93 /min [facility] BMI 2022-12-11 13:55:00 35.43 kg/m2 [facility] Body temperature 2022-12-11 13:55:00 37.22 [facility] Body weight 2022-12-11 13:55:00 90.719 kg [facility] Systolic blood pressure 2022-11-18 05:34:00 152 mm[Hg] [facility] Diastolic blood pressure 2022-11-18 05:34:00 98 mm[Hg] [facility] Heart rate 2022-11-18 05:34:00 88 /min [facility] Respiratory rate 2022-11-18 05:34:00 18 /min [facility] Oxygen saturation in Arterial blood by Pulse oximetry 2022-11-18 05:34:00 97 /min [facility] Body temperature 2022-11-17 22:28:00 37.06 [facility] Body height 2022-11-17 22:28:00 160 cm [facility] Body weight 2022-11-17 22:28:00 99.791 kg [facility] BMI 2022-11-17 22:28:00 38.97 kg/m2 [facility] Heart rate 2022-08-02 02:02:00 108 /min [facility] Respiratory rate 2022-08-02 02:02:00 28 /min [facility] Oxygen saturation in Arterial blood by Pulse oximetry 2022-08-02 02:02:00 97 /min [facility] Body temperature 2022-08-02 01:00:00 36.44 [facility] Systolic blood pressure 2022-08-01 23:29:00 145 mm[Hg] [facility] Diastolic blood pressure 2022-08-01 23:29:00 103 mm[Hg] [facility] Body weight 2022-08-01 09:16:00 97.977 kg [facility] BMI 2022-08-01 09:16:00 38.26 kg/m2 [facility] Body height 2022-07-31 21:54:00 160 cm [facility] Systolic blood pressure 2022-05-08 16:40:00 146 mm[Hg] [facility] Diastolic blood pressure 2022-05-08 16:40:00 96 mm[Hg] [facility] Heart rate 2022-05-08 16:40:00 112 /min [facility] Body temperature 2022-05-08 16:40:00 36.78 Radha [facility] Respiratory rate 2022-05-08 16:40:00 18 /min [facility] Oxygen saturation in Arterial blood by Pulse oximetry 2022-05-08 16:40:00 94 /min [facility] Body height 2022-05-05 23:44:00 160 cm [facility] Body weight 2022-05-05 23:37:00 81.647 kg [facility] BMI 2022-05-05 23:37:00 31.89 kg/m2 [facility] Systolic blood pressure 2022-04-15 18:52:00 104 mm[Hg] [facility] Diastolic blood pressure 2022-04-15 18:52:00 82 mm[Hg] [facility] Heart rate 2022-04-15 18:52:00 114 /min [facility] Oxygen saturation in Arterial blood by Pulse oximetry 2022-04-15 18:52:00 98 /min [facility] Body temperature 2022-04-15 16:14:00 36.28 Radha [facility] Respiratory rate 2022-04-15 16:14:00 17 /min [facility] Body height 2022-04-13 21:08:00 160 cm [facility] Body weight 2022-04-13 21:08:00 91.173 kg [facility] BMI 2022-04-13 21:08:00 35.61 kg/m2 [facility] Systolic blood pressure 2021-11-23 21:30:00 132 mm[Hg] [facility] Diastolic blood pressure 2021-11-23 21:30:00 76 mm[Hg] [facility] Heart rate 2021-11-23 21:30:00 95 /min [facility] Respiratory rate 2021-11-23 21:30:00 13 /min [facility] Oxygen saturation in Arterial blood by Pulse oximetry 2021-11-23 21:30:00 97 /min [facility] Body temperature 2021-11-23 20:15:00 37.56 Radha [facility] Systolic blood pressure 2021-03-17 03:00:00 117 mm[Hg] [facility] Diastolic blood pressure 2021-03-17 03:00:00 76 mm[Hg] [facility] Heart rate 2021-03-17 03:00:00 104 /min [facility] Respiratory rate 2021-03-17 03:00:00 28 /min [facility] Oxygen saturation in Arterial blood by Pulse oximetry 2021-03-17 03:00:00 96 /min [facility] Body temperature 2021-03-17 00:39:00 37.11 Radha [facility] Body height 2021-03-17 00:39:00 160 cm [facility] Body weight 2021-03-17 00:39:00 58.968 kg [facility] BMI 2021-03-17 00:39:00 23.03 kg/m2 [facility] Systolic blood pressure 2021-03-15 00:14:00 149 mm[Hg] [facility] Diastolic blood pressure 2021-03-15 00:14:00 78 mm[Hg] [facility] Heart rate 2021-03-15 00:14:00 100 /min [facility] Body temperature 2021-03-15 00:14:00 37.33 Radha [facility] Respiratory rate 2021-03-15 00:14:00 24 /min [facility] Body height 2021-03-15 00:14:00 160 cm [facility] Body weight 2021-03-15 00:14:00 58.968 kg [facility] BMI 2021-03-15 00:14:00 23.03 kg/m2 [facility] Oxygen saturation in Arterial blood by Pulse oximetry 2021-03-15 00:14:00 98 /min [facility] Systolic blood pressure 2021-02-19 18:00:00 131 mm[Hg] [facility] Diastolic blood pressure 2021-02-19 18:00:00 80 mm[Hg] [facility] Heart rate 2021-02-19 18:00:00 83 /min [facility] Respiratory rate 2021-02-19 18:00:00 18 /min [facility] Oxygen saturation in Arterial blood by Pulse oximetry 2021-02-19 18:00:00 100 /min [facility] Body temperature 2021-02-19 15:47:00 37 Radha [facility] Body height 2021-02-19 15:47:00 160 cm [facility] Body weight 2021-02-19 15:47:00 58.968 kg [facility] BMI 2021-02-19 15:47:00 23.03 kg/m2 [facility] Heart rate 2023-09-08 08:54:00 118 /min [facility] Respiratory rate 2023-09-08 08:54:00 21 /min [facility] Oxygen saturation in Arterial blood by Pulse oximetry 2023-09-08 08:54:00 100 /min [facility] Systolic blood pressure 2023-09-08 08:32:00 110 mm[Hg] [facility] Diastolic blood pressure 2023-09-08 08:32:00 77 mm[Hg] [facility] Body temperature 2023-09-08 08:32:00 36.06 Radha [facility] Body height 2023-09-04 00:58:00 157.5 cm [facility] Body weight 2023-09-04 00:58:00 80 kg [facility] BMI 2023-09-04 00:58:00 32.26 kg/m2 [facility] Heart rate 2023-06-16 17:00:00 108 /min [facility] Systolic blood pressure 2023-06-16 15:31:00 101 mm[Hg] [facility] Diastolic blood pressure 2023-06-16 15:31:00 81 mm[Hg] [facility] Body temperature 2023-06-16 15:31:00 36.61 Radha [facility] Respiratory rate 2023-06-16 15:31:00 18 /min [facility] Oxygen saturation in Arterial blood by Pulse oximetry 2023-06-16 15:31:00 94 /min [facility] Body weight 2023-06-16 05:26:00 86.047 kg [facility] BMI 2023-06-16 05:26:00 33.60 kg/m2 [facility] Body height 2023-06-13 04:00:00 160 cm [facility] Systolic blood pressure 2023-06-04 13:02:00 93 mm[Hg] [facility] Diastolic blood pressure 2023-06-04 13:02:00 57 mm[Hg] [facility] Heart rate 2023-06-04 13:02:00 101 /min [facility] Respiratory rate 2023-06-04 13:02:00 22 /min [facility] Oxygen saturation in Arterial blood by Pulse oximetry 2023-06-04 13:02:00 95 /min room air [facility] Body temperature 2023-06-04 11:46:00 35.28 Radha [facility] Systolic blood pressure 2023-05-28 16:00:00 154 mm[Hg] [facility] Diastolic blood pressure 2023-05-28 16:00:00 82 mm[Hg] [facility] Heart rate 2023-05-28 16:00:00 89 /min [facility] Body temperature 2023-05-28 16:00:00 36.67 Radha [facility] Respiratory rate 2023-05-28 16:00:00 16 /min [facility] Oxygen saturation in Arterial blood by Pulse oximetry 2023-05-28 16:00:00 97 /min [facility] Body height 2023-05-28 07:00:00 157.5 cm [facility] Body weight 2023-05-28 07:00:00 87.544 kg [facility] BMI 2023-05-28 07:00:00 35.30 kg/m2 [facility] Body height 2023-05-26 09:12:00 157.5 cm [facility] Body weight 2023-05-26 09:12:00 87.091 kg [facility] BMI 2023-05-26 09:12:00 35.12 kg/m2 [facility] Respiratory rate 2023-04-02 16:35:00 18 /min [facility] Oxygen saturation in Arterial blood by Pulse oximetry 2023-04-02 16:35:00 98 /min [facility] Systolic blood pressure 2023-04-02 12:00:00 147 mm[Hg] [facility] Diastolic blood pressure 2023-04-02 12:00:00 97 mm[Hg] [facility] Heart rate 2023-04-02 12:00:00 106 /min [facility] Body temperature 2023-04-02 12:00:00 36.28 Radha [facility] Body height 2023-03-30 02:14:00 157.5 cm [facility] Body weight 2023-03-30 02:14:00 92.08 kg [facility] BMI 2023-03-30 02:14:00 37.13 kg/m2 [facility] Respiratory rate 2022-08-03 14:40:00 18 /min [facility] Systolic blood pressure 2022-08-03 12:13:00 112 mm[Hg] [facility] Diastolic blood pressure 2022-08-03 12:13:00 77 mm[Hg] [facility] Heart rate 2022-08-03 12:13:00 115 /min [facility] Oxygen saturation in Arterial blood by Pulse oximetry 2022-08-03 12:13:00 93 /min [facility] Body temperature 2022-08-03 12:00:00 36.83 Radha [facility] Body height 2022-08-02 21:52:00 160.2 cm [facility] Body weight 2022-08-02 21:52:00 95 kg [facility] BMI 2022-08-02 21:52:00 37.02 kg/m2 [facility] BP Systolic 2022-07-24 13:31:00 136 [...] Performing Clinician Source POCT-GLUCOSE METER 2023-09-08 08:40:[facility] W/PLT COUNT & AUTO DIFFERENTIAL 2023-09-08 04:16:00 Joshua [facility] BASIC METABOLIC PANEL 2023-09-08 04:16:00 Joshua [facility] MAGNESIUM 2023-09-08 04:16:00 Joshua [facility] PHOSPHORUS 2023-09-08 04:16:00 Josuha [facility] CBC W/PLT COUNT & AUTO DIFFERENTIAL 2023-09-08 04:16:00 Joshua [facility] POCT-GLUCOSE METER 2023-09-07 21:29:00 Bud [facility] XR KNEE 3 VIEWS LEFT 2023-09-07 19:21:02 [facility] VENOUS DOPPLER LEGS BILATERAL 2023-09-07 12:45:00 Joshua [facility] CBC W/PLT COUNT & AUTO DIFFERENTIAL 2023-09-07 03:17:00 Joshua [facility] BASIC METABOLIC PANEL 2023-09-07 03:17:00 Joshua [facility] MAGNESIUM 2023-09-07 03:17:00 Joshua [facility] PHOSPHORUS 2023-09-07 03:17:00 Joshua [facility] CBC W/PLT COUNT & AUTO DIFFERENTIAL 2023-09-07 03:17:00 Joshua [facility] POCT-GLUCOSE METER 2023-09-06 21:17:00 Bud [facility] POCT-GLUCOSE METER 2023-09-06 18:37:00 Bud [facility] POCT-GLUCOSE METER 2023-09-06 13:16:00 Bud [facility] POCT-GLUCOSE METER 2023-09-06 08:21:00 Bud [facility] CBC W/PLT COUNT & AUTO DIFFERENTIAL 2023-09-06 04:49:00 Joshua [facility] BASIC METABOLIC PANEL 2023-09-06 04:49:00 Joshua [facility] MAGNESIUM 2023-09-06 04:49:00 Joshua [facility] PHOSPHORUS 2023-09-06 04:49:00 Joshua [facility] CBC W/PLT COUNT & AUTO DIFFERENTIAL 2023-09-06 04:49:00 Joshua [facility] POCT-GLUCOSE METER 2023-09-05 21:24:00 Bud [facility] MR BRAIN WITH & WITHOUT IV CONTRAST 2023-09-05 11:25:07 Sandi Aleman [facility] POCT-GLUCOSE METER 2023-09-05 08:10:00 Bud [facility] CBC W/PLT COUNT & AUTO DIFFERENTIAL 2023-09-05 04:44:00 Joshua [facility] BASIC METABOLIC PANEL 2023-09-05 04:44:00 Joshua [facility] MAGNESIUM 2023-09-05 04:44:00 Joshua [facility] PHOSPHORUS 2023-09-05 04:44:00 Joshua [facility] POCT-GLUCOSE METER 2023-09-05 04:44:00 Fry [facility] CBC W/PLT COUNT & AUTO DIFFERENTIAL 2023-09-05 04:44:00 Joshua [facility] POCT-GLUCOSE METER 2023-09-04 21:38:00 Fry [facility] POCT-GLUCOSE METER 2023-09-04 15:42:00 [facility] SARS-COV2/INFLUENZA/RSV RT-PCR 2023-09-04 11:25:00 lUi [facility] POCT-GLUCOSE METER 2023-09-04 10:53:00 Sabas [facility] POCT-GLUCOSE METER 2023-09-04 08:04:00 Sabas Pankaj [facility] PROCALCITONIN 2023-09-04 06:56:00 Uli [facility] IRON, TIBC, % SAT. (WITHOUT FERRITIN) 2023-09-04 06:56:00 Uli [facility] FERRITIN 2023-09-04 06:56:00 Uli [facility] BLOOD CULTURE 2023-09-04 06:37:00 Randall [facility] MR LUMBAR SPINE WITHOUT IV CONTRAST 2023-09-04 05:47:25 [facility] THORACIC SP[facility] WITHOUT IV CONTRAST 2023-09-04 04:53:00 [facility] MR CERVICAL SPINE WITHOUT IV CONTRAST 2023-09-04 04:18:00 [place] Og[facility] CT THORACIC SPINE WITHOUT IV CONTRAST 2023-09-04 03:08:00 Randall [facility] CT LUMBAR SPINE WITHOUT IV CONTRAST 2023-09-04 03:08:00 Randall [facility] LACTIC ACID, VENOUS 2023-09-04 01:42:00 [facility] TYPE AND SCREEN, AUTOMATED 2023-09-04 01:42:00 [facility] W/[facility]T COUNT & AUTO DIFFERENTIAL 2023-09-04 00:51:00 Melvi [facility] COMPREHENSIVE METABOLIC PANEL 2023-09-04 00:51:00 Melvi [facility] MAGNESIUM 2023-09-04 00:51:00 Melvi [facility] PHOSPHORUS 2023-09-04 00:51:00 Melvi [facility] PROTHROMBIN TIME/INR 2023-09-04 00:51:00 Melvi [facility] APTT 2023-09-04 00:51:00 Melvi [facility] B-TYPE NATRIURETIC FACTOR (BNP) 2023-09-04 00:51:00 Melvi [facility] URINALYSIS WITHOUT MICROSCOPIC 2023-09-04 00:51:00 Melvi [facility] RAPID DRUG SCREEN, URINE 2023-09-04 00:51:00 Melvi [facility] D-DIMER 2023-09-04 00:51:00 London Loyola [facility] FIBRINOGEN 2023-09-04 00:51:00 Jorge Pereira [facility] CBC W/PLT COUNT & AUTO DIFFERENTIAL 2023-09-04 00:51:00 Melvi [facility] EKG-SCANNED 2023-09-04 00:00:00 Provider, Eliceo Scanning [facility] LACTIC ACID WHOLE BLOOD 2023-08-12 20:31:00 Brian Bryan [facility] COMP. METABOLIC PANEL (03189) 2023-08-12 20:29:00 Brian Bryan [facility] CBC WITH DIFF 2023-08-12 20:29:00 Brian Bryan [facility] CONSENT/REFUSAL FOR DIAGNOSI S AND TREATMENT 2023-08-12 19:43:16 Doctor Unassigned, Cygnet [facility] TRANSESOPHAGEAL ECHO 2023-06-16 11:05:00 Torrey [facility] T SPOT TB 2023-06-15 04:51:00 Rossy [facility] FUNGITELL R B-D-GLUCAN WITH REFLEX TO TITER 2023-06-15 04:51:00 Rossy [facility] ASPERGILLUS GALACTOMANNAN ANTIGEN 2023-06-15 04:51:00 Rossy [facility] VANCOMYCIN LEVEL, TROUGH 2023-06-15 04:51:00 Kaylene Mendosa [facility] T-SPOT(R).TB (QUEST) 2023-06-15 04:27:00 System, Provider Not In [facility] T-SPOT(R).TB (QUEST) 2023-06-15 04:27:00 System, Provider Not In [facility] ECHO W CONTRAST & DOPPLER 2023-06-14 09:22:00 [facility] HEMOGLOBIN A1C 2023-06-14 04:08:00 Cara Burgess [facility] CBC (HEMOGRAM ONLY) 2023-06-14 04:08:00 [facility] BASIC METABOLIC PANEL 2023-06-14 04:08:00 [facility] CRYPTOCOCCAL ANTIGEN 2023-06-13 17:21:00 Rossy [facility] HC LAB HIV-1 AG W/HIV-1&2 AB 2023-06-13 17:21:00 Rossy [facility] VENOUS DOPPLER ARM, LEFT 2023-06-13 17:20:00 Cara Burgess [facility] LEGIONELLA ANTIGEN, URINE 2023-06-13 17:00:00 [facility] SPUTUM CULTURE + GRAM STAIN 2023-06-13 14:33:00 [facility] MR LUMBAR SPINE WITH & WITHOUT IV CONTRAST 2023-06-13 13:03:47 Burt Nelson [facility] ECG 12-LEAD 2023-06-13 11:47:02 [facility] ECG 12-LEAD 2023-06-13 11:47:02 Unknown, Hl7 Doctor [facility] MRSA SCREEN 2023-06-13 09:19:00 [facility] CBC W/PLT COUNT & AUTO DIFFERENTIAL 2023-06-13 06:03:00 Cara Burgess [facility] COMPREHENSIVE METABOLIC PANEL 2023-06-13 06:03:00 [facility] PROTHROMBIN TIME/INR 2023-06-13 06:03:00 DodieCara richardson [facility] CREATINE KINASE (CK) 2023-06-13 06:03:00 [facility] CBC W/PLT COUNT & AUTO DIFFERENTIAL 2023-06-13 06:03:00 Cara Burgess [facility] BLOOD CULTURE 2023-06-13 06:02:00 Cara Burgess [facility] CBC W/PLT COUNT & AUTO DIFFERENTIAL 2023-06-02 04:41:00 Sunil Chu [facility] BASIC METABOLIC PANEL 2023-06-02 04:41:00 Sunil Chu [facility] MAGNESIUM 2023-06-02 04:41:00 Sunil Chu [facility] PHOSPHORUS 2023-06-02 04:41:00 Sunil Chu [facility] CBC W/PLT COUNT & AUTO DIFFERENTIAL 2023-06-02 04:41:00 Sunil Chu [facility] XR SPINE LUMBAR 1 VIEW 2023-06-01 10:31:00 Adam Garcia [facility] XR SPINE LUMBAR 1 VIEW 2023-06-01 09:46:00 Adam Garcia [facility] LAMINECTOMY, SPINE, LUMBAR 2023-06-01 09:10:00 Adam Garcia [facility] PROCEDURE W/ C-ARM 2023-06-01 09:10:00 Adam Garcia [facility] LAMINECTOMY, SPINE, LUMBAR 2023-06-01 07:30:00 Adam Garcia [facility] PROCEDURE W/ C-ARM 2023-06-01 07:30:00 Adam Garcia [facility] SCREEN, URINE 2023-06-01 04:33:00 Adam Garcia [facility] BASIC METABOLIC PANEL 2023-05-31 22:55:00 Dallas Gomez [facility] CBC W/PLT COUNT & AUTO DIFFERENTIAL 2023-05-31 22:55:00 Patricia [facility] PT/APTT 2023-05-31 22:55:00 Patricia [facility] CBC W/PLT COUNT & AUTO DIFFERENTIAL 2023-05-31 22:55:00 Patricia [facility] CT NECK SOFT TISSUE WITHOUT IV CONTRAST 2023-05-31 09:39:30 [facility] TYPE AND SCREEN, AUTOMATED 2023-05-31 09:13[facility] BASIC METABOLIC PANEL 2023-05-29 06:43:[facility] CBC W/PLT COUNT & AUTO DIFFERENTIAL 2023-05-29 06:43:00 [facility] CBC W/PLT COUNT & AUTO DIFFERENTIAL 2023-05-29 06:43:00 [facility] XR SPINE CERVICAL 2 OR 3 VIEWS 2023-05-28 18:57:00 [facility] FL FLUORO NON-SPECIFIC UP TO 1 HOUR 2023-05-28 10:48:00 Adam Garcia [facility] [place] FLUORO NON-SPECIFIC UP TO 1 HOUR 2023-05-28 10:07:00 Adam Garcia [facility] DISCECTOMY, SPINE, CERVICAL, ANTERIOR APPROACH, WITH FUSION 2023-05-28 08:15:00 Jose, Adam C [facility] INSERTION, HARDWARE, SPINAL 2023-05-28 08:15:00 Jose Adam [facility] PROCEDURE, ALLOGRAFT, FOR SPINE SURGERY 2023-05-28 08:15:00 Jose Adam [facility] AUTOGRAFT FOR SPINE SURGERY 2023-05-28 08:15:00 Jose [facility] PROCEDURE W/ C-ARM 2023-05-28 08:15:00 Jose Adam [facility] NEUROPHYSIOLOGIC MONITORING, INTRAOPERATIVE 2023-05-28 08:15:00 Jose Adam [facility] PROCEDURE, USING OPERATING MICROSCOPE 2023-05-28 08:15:00 [place] [facility] HCG, QUANTITATIVE, 2023-05-28 07:42:00 Yue Bui [facility] TYPE AND SCREEN, AUTOMATED 2023-05-28 07:42:00 Ketan Scruggs [facility] XR CHEST 1 VIEW PORTABLE / BEDSIDE 2023-04-01 15:32:16 Devora [facility] B-TYPE NATRIURETIC FACTOR (BNP) 2023-04-01 13:32:00 Devora [facility] ECHO W CONTRAST & DOPPLER 2023-03-31 20:18:37 Jasen [facility] MR CERVICAL SPINE WITHOUT IV CONTRAST 2023-03-31 09:25:00 Selin Lewis [facility] CBC (HEMOGRAM ONLY) 2023-03-31 03:45:00 Jasen [facility] COMPREHENSIVE METABOLIC PANEL 2023-03-31 03:45:00 Jasen [facility] ARTERIAL DOPPLER LEGS BILATERAL 2023-03-30 15:45:00 Jasen [facility] ARTERIAL (ALEISHA'S W/ DOPPLER) ONLY 2023-03-30 15:44:00 Jasen [facility] ECG 12-LEAD 2023-03-30 13:06:22 Jasen [facility] ECG 12-LEAD 2023-03-30 13:06:22 Unknown, Hl7 [facility] MR THORACIC SPINE WITHOUT IV CONTRAST 2023-03-30 12:29:58 Eric [facility] MR LUMBAR SPINE WITHOUT IV CONTRAST 2023-03-30 11:58:00 Eric, [facility] EEG AWAKE AND DROWSY 2023-03-30 09:57:53 Berry [facility] VALPROIC ACID LEVEL, TOTAL 2023-03-30 09:06:00 Berry [facility] URINALYSIS W/ REFLEX URINE CULTURE 2023-03-30 03:54:00 Eric [facility] CBC (HEMOGRAM ONLY) 2023-03-30 03:52:00 [facility] COMPREHENSIVE METABOLIC PANEL 2023-03-30 03:52[facility] HEMOGLOBIN A1C 2023-03-30 03:52:[facility] PT/APTT 2023-03-30 03:52:00 Thomas Lozoya [facility] EKG-SCANNED 2023-03-29 00:00:00 Provider, Default Scanning [facility] CT HEAD WO CONTRAST 2022-12-11 18:36:49 Alfonso Alvarado [facility] URINE DRUG (IMMUNOASSAY) - COMPREHENSIVE DRUG SCREEN 2022-12-11 17:13:00 Alfonso Alvarado [facility] URINALYSIS 2022-12-11 17:13:00 Alfonso Alvarado [facility] CT CHEST PULMONARY ANGIOGRAM 2022-12-11 16:26:39 Alfonso Alvarado [facility] MAGNESIUM 2022-12-11 14:57:00 Alfonso Alvarado [facility] COMP. METABOLIC PANEL ([id number]) 2022-12-11 14:57:00 Alfonso Alvarado [facility] D-DIMER 2022-12-11 14:15:00 Alfonso Alvarado [facility] XR CHEST 1 VW 2022-12-11 14:10:26 Alfonso Alvarado [facility] TROPONIN I 2022-12-11 14:02:00 Alfonso Alvarado [facility] CBC WITH DIFF 2022-12-11 14:02:00 Alfonso Alvarado [facility] N-TERMINAL PRO-BNP 2022-12-11 14:02:00 Alfonso Alvarado [facility] HB ECG ROUTINE & RHYTHM STRIP 2022-12-11 14:01:08 Alfonso Alvarado [facility] CONSENT/REFUSAL FOR DIAGNOSI S AND TREATMENT 2022-12-11 13:52:01 Doctor Unassigned, Cygnet [facility] ECG 12-LEAD 2022-08-03 05:03:32 Unknown, Hl7 [facility] ECG 12-LEAD 2022-08-03 05:03:32 Unknown, Hl7 [facility] LIPID PANEL 2022-08-02 21:14:00 [facility] TSH/FREE T4 IF INDICATED 2022-08-02 21:14:00 [facility] VITAMIN B12 2022-08-02 21:14:00 [facility] HEMOGLOBIN A1C 2022-08-02 21:14:00 [facility] COMPREHENSIVE METABOLIC PANEL 2022-08-02 21:14:00 [facility] CBC W/PLT COUNT & AUTO DIFFERENTIAL 2022-08-02 21:14:00 [place] [facility] RPR 2022-08-02 21:14:00 [place] HC LAB HIV-1 AG W/HIV-1&2 AB 2022-08-02 21:14:00 [place] [facility] C-REACTIVE PROTEIN 2022-08-02 21:14:00 [place] [facility] CBC W/PLT COUNT & AUTO DIFFERENTIAL 2022-08-02 21:14:00 [facility] EKG-SCANNED 2022-08-02 00:00:00 Provider, Default Scanning [facility] CT HEAD WO CONTRAST 2022-08-01 23:52:15 Lorenza Lowry [facility] GALV ONLY - INFLUENZA A B RS V PCR 2022-08-01 18:28:00 Letitia Chambers [facility] TRANSTHORACIC ECHO (TTE) COMPLETE W/ CONTRAST 2022-08-01 14:42:00 Kylee Montez [facility] MAGNESIUM 2022-08-01 10:42:00 Lorenza Lowry [facility] BASIC METABOLIC PANEL (NA, K , CL, CO2, GLUCOSE, BUN, CREATININE, CA) 2022-08-01 10:42:00 Essence [facility] CBC WITH DIFF 2022-08-01 10:42:00 Essence [facility] N-TERMINAL PRO-BNP 2022-08-01 10:42:00 Tc [facility] POCT GLUCOSE (AUTOMATED) 2022-08-01 06:56:00 [facility] 2022-07-31 22:31:36 Alcon [facility] URINALYSIS 2022-07-31 20:52:00 Alcon [facility] URINE DRUG (IMMUNOASSAY) - COMPREHENSIVE DRUG SCREEN W/O REFLEX 2022-07-31 20:52:00 Alcon [facility] XR CHEST 1 VW 2022-07-31 18:45:17 Alcon Sav [facility] LIPASE 2022-07-31 17:58:00 [facility] 2022-07-31 17:58:00 Alcon [facility] COMP. METABOLIC PANEL ([id number]) 2022-07-31 17:58:00 Sav Rondon [facility] CBC WITH DIFF 2022-07-31 17:58:00 Alcon [facility] PROTHROMBIN TIME / INR 2022-07-31 17:58:00 Sav Rondon [facility] ACTIVATED PARTIAL THRMPLAS DAVID 2022-07-31 17:58:00 Alcon [facility] N-TERMINAL PRO-BNP 2022-07-31 17:58:00 Sav Rondon [facility] HB ECG ROUTINE & RHYTHM STRIP 2022-07-31 17:46:28 Sav Rondon [facility] NOTICE OF PRIVACY PRACTICES 2022-07-31 17:35:38 Doctor Unassigned, [facility] CONSENT/REFUSAL FOR DIAGNOSI S AND TREATMENT 2022-07-31 17:35:13 Doctor Unassigned, [facility] PHOSPHORUS 2022-05-08 05:51:00 Azeem Meehan [facility] MAGNESIUM 2022-05-08 05:51:00 [facility] BASIC METABOLIC PANEL (NA, K , CL, CO2, GLUCOSE, BUN, CREATININE, CA) 2022-05-08 05:51:00 [facility] CBC WITH DIFF 2022-05-08 05:51:00 [facility] BASIC METABOLIC PANEL (NA, K , CL, CO2, GLUCOSE, BUN, CREATININE, CA) 2022-05-07 07:09:00 John Cintron [facility] CBC WITH DIFF 2022-05-07 07:09:00 John Cintron [facility] POCT GLUCOSE (AUTOMATED) 2022-05-07 01:16:00 Brandyn Ibrahim [facility] HB ABO GROUPING 2022-05-06 05:07:00 Ismael Dunn [facility] BASIC METABOLIC PANEL (NA, K , CL, CO2, GLUCOSE, BUN, CREATININE, CA) 2022-05-06 05:04:00 Shefali Azeem [facility] CBC WITH DIFF 2022-05-06 05:04:00 Shefali Azeem [facility] KEPPRA (LEVETIRACETAM) 2022-05-06 05:04:00 [facility] MR LUMBAR SPINE WO CONTRAST 2022-05-06 02:54:37 Ender Monet [facility] ELECTROENCEPHALOGRAM 2022-05-06 00:00:00 John Cintron [facility] BASIC METABOLIC PANEL (NA, K , CL, CO2, GLUCOSE, BUN, CREATININE, CA) 2022-05-05 07:57:00 Ismael Dunn [facility] CBC WITH DIFF 2022-05-05 07:57:00 Ismael Dunn [facility] PROTHROMBIN TIME / INR 2022-05-05 07:57:00 Ismael Dunn [facility] ACTIVATED PARTIAL THRMPLAS DAVID 2022-05-05 07:57[facility]-05-05 07:57:00 Shaun Faith [facility] EMERGENCY SERVICES AGREEMENT S AND AUTHORIZATIONS 2022-05-04 05:01:00 Doctor Unassigned, [facility] VITAMIN D, 25-OH 2022-04-15 16:53:00 Sen Toledo [facility] MR THORACIC SPINE WO CONTRAST 2022-04-15 11:56:19 Harshil [facility] MR CERVICAL SPINE WO CONTRAST 2022-04-15 11:20:00 Harshil [facility] BASIC METABOLIC PANEL (NA, K , CL, CO2, GLUCOSE, BUN, CREATININE, CA) 2022-04-15 10:36:00 Charmaine Morataya [facility] TEST, URINE 2022-04-15 04:39:00 Harshil [facility] URINE DRUG (IMMUNOASSAY) - COMPREHENSIVE DRUG SCREEN 2022-04-15 04:39:00 Harshil [facility] URINALYSIS 2022-04-15 04:39:00 Harshil [facility] TRANSTHORACIC ECHO (TTE) COMPLETE W/ CONTRAST 2022-04-14 16:37:03 Harshil [facility] KEPPRA (LEVETIRACETAM) 2022-04-14 15:30:00 Harshil [facility] MAGNESIUM 2022-04-14 10:03:00 Harshil [facility] BASIC METABOLIC PANEL (NA, K , CL, CO2, GLUCOSE, BUN, CREATININE, CA) 2022-04-14 10:03:00 Harshil [facility] MR LUMBAR SPINE WO CONTRAST 2022-04-14 02:48:12 Harshil [facility] MR STROKE BRAIN WO CONTRAST 2022-04-14 02:29:00 Harshil [facility] CT STROKE ANGIOGRAM HEAD 2022-04-13 18:40:00 Sapna Vargas [facility] CT STROKE ANGIOGRAM NECK 2022-04-13 18:40:00 Sapna Vargas [facility] CT STROKE HEAD WO CONTRAST 2022-04-13 18:36:00 Sapna Vargas [facility] TROPONIN I 2022-04-13 18:17:00 Sapna Vargas [facility] THYROID STIMULATING HORMONE 2022-04-13 18:17:00 Harshil [facility] BASIC METABOLIC PANEL (NA, K , CL, CO2, GLUCOSE, BUN, CREATININE, CA) 2022-04-13 18:17:00 Sapna Vargas [facility] LIPID PANEL (62569)(TOTAL CHOLESTEROL, TRIGLYCERIDES, HDL) 2022-04-13 18:17:00 Harshil [facility] CBC WITHOUT DIFF 2022-04-13 18:17:00 Sapna Vargas [facility] GLYCOSYLATED HEMOGLOBIN (A1C) 2022-04-13 18:17:00 Harshil [facility] PROTHROMBIN TIME / INR 2022-04-13 18:17:00 Sapna Vargas [facility] ACTIVATED PARTIAL THRMPLAS DAVID 2022-04-13 18:17:00 Sapna Vargas [facility] COVID-19 (ID NOW RAPID TESTING) 2022-04-13 18:17:00 Sapna Vargas [facility] LAB ONLY COVID INTERPRETATION 2022-04-13 18:17:00 Sapna Vargas [facility] HB ECG ROUTINE & RHYTHM STRIP 2022-04-13 18:15:49 Sapna Vargas [facility] CONSENT/REFUSAL FOR DIAGNOSI S AND TREATMENT 2022-04-13 18:05:14 Doctor Unassigned, [facility] HOSPITAL ADMISSION 2022-04-13 05:01:00 Doctor Unassigned, [place] [facility] SARS-COV-2 COVID-19 VACCINE 12 YRS+,0.3ML,IM (PFIZER - ROSE TOP) 2022-02-19 15:21:12 Doctor Unassigned, [place] [facility] URINE DRUG (IMMUNOASSAY) - COMPREHENSIVE DRUG SCREEN W/O REFLEX 2021-11-23 21:21:00 Nichelle Virk [facility] CT HEAD WO CONTRAST 2021-11-23 20:58:00 Nichelle Virk [facility] POCT TEST 2021-11-23 20:46:00 Nichelle Virk [facility] URINALYSIS 2021-11-23 20:43:00 Nichelle Virk [facility] LIPASE 2021-11-23 20:27:00 Nichelle Virk [facility] TROPONIN I 2021-11-23 20:27:00 Nichelle Virk [facility] COMP. METABOLIC PANEL (55620) 2021-11-23 20:27:00 Nichelle Virk [facility] CBC WITH DIFF 2021-11-23 20:27:00 Nichelle Virk [facility] POCT GLUCOSE (AUTOMATED) 2021-11-23 20:15:00 Doctor Unassigned, [facility] SARS-COV-2 COVID-19 VACCINE,0.3ML,IM (PFIZER) 2021-05-24 14:23:12 Doctor Unassigned, [facility] SARS-COV-2 COVID-19 VACCINE,0.3ML,IM (PFIZER) 2021-05-03 14:59:29 Doctor Unassigned, [facility] EMERGENCY SERVICES AGREEMENT S AND AUTHORIZATIONS 2021-04-16 05:01:00 Doctor Unassigned, [facility] URINALYSIS 2021-03-17 03:09:00 Fabrice Chakraborty [facility] XR CHEST 1 VW 2021-03-17 01:45:07 Fabrice Chakraborty [facility] TROPONIN I 2021-03-17 01:35:00 Fabrice Chakraborty [facility] COMP. METABOLIC PANEL ([id number]) 2021-03-17 01:35:00 Fabrice Chakraborty [facility] CBC WITH DIFF 2021-03-17 01:35:00 Fabrice Chakraborty [facility] N-TERMINAL PRO-BNP 2021-03-17 01:35:00 Fabrice Chakraborty [facility] COVID-19 (ID NOW RAPID TESTING) 2021-03-17 00:58:00 Brian Bryan [facility] CONSENT/REFUSAL FOR DIAGNOSI S AND TREATMENT 2021-03-17 00:32:59 Doctor Unassigned, [facility] COVID-19 (ID NOW RAPID TESTING) 2021-02-19 17:04:00 Anali Monroy [facility] CT ABDOMEN PELVIS W CONTRAST 2021-02-19 16:41:18 Anali Monroy [facility] LIPASE 2021-02-19 15:58:00 Anali Monroy [facility] COMP. METABOLIC PANEL ([id number]) 2021-02-19 15:58:00 Anali Monroy [facility] CBC WITH DIFF 2021-02-19 15:58:00 Anali Monroy [facility] URINALYSIS 2021-02-19 15:58:00 Anali Monroy [facility] NOTICE OF PRIVACY PRACTICES 2021-02-19 15:30:46 Doctor Unassigned, [facility] CONSENT/REFUSAL FOR DIAGNOSI S AND TREATMENT 2021-02-19 15:30:30 Doctor Unassigned, [facility] Plan of Care Planned Activity Planned Date Details Comments Source Future Scheduled Test 2025-08-02 00:00:00 Lipid panel (procedure) [code = 34564097] [facility] Future Scheduled Test 2025-08-02 00:00:00 Lipid panel (procedure) [code = 99753929] [facility] Future Scheduled Test 2025-08-02 00:00:00 Lipid panel (procedure) [code = 62959937] [facility] Future Scheduled Test 2025-08-02 00:00:00 Lipid panel (procedure) [code = 41509847] [facility] Future Scheduled Test 2025-08-02 00:00:00 Lipid panel (procedure) [code = 26649849] [facility] Future Scheduled Test 2025-08-02 00:00:00 Lipid panel (procedure) [code = 85088673] [facility] Future Scheduled Test 2025-08-02 00:00:00 Lipid panel (procedure) [code = [id number]] [facility] Future Scheduled Test 2025-08-02 00:00:00 Lipid panel (procedure) [code = 24083771] [facility] Future Scheduled Test 2025-08-02 00:00:00 Lipid panel (procedure) [code = 56963184] [facility] Future Scheduled Test 2025-08-02 00:00:00 Lipid panel (procedure) [code = 12820025] [facility] Future Scheduled Test 2025-08-02 00:00:00 Lipid panel (procedure) [code = 91938702] [facility] Future Scheduled Test 2025-08-02 00:00:00 Lipid panel (procedure) [code = 53695146] [facility] Future Scheduled Test 2025-08-02 00:00:00 Lipid panel (procedure) [code = 78176135] [facility] Future Scheduled Test 2025-08-02 00:00:00 Lipid panel (procedure) [code = 41246501] [facility] Future Scheduled Test 2025-08-02 00:00:00 Lipid panel (procedure) [code = 95198018] [facility] Future Scheduled Test 2025-08-02 00:00:00 Lipid panel (procedure) [code = 30019034] [facility] Future Scheduled Test 2025-08-02 00:00:00 Lipid panel (procedure) [code = 42267644] [facility] Future Scheduled Test 2025-08-02 00:00:00 Lipid panel (procedure) [code = 02031743] [facility] Future Scheduled Test 2025-08-02 00:00:00 Lipid panel (procedure) [code = 69621866] [facility] Future Scheduled Test 2025-08-02 00:00:00 Lipid panel (procedure) [code = 58364270] [facility] Future Scheduled Test 2025-08-02 00:00:00 Lipid panel (procedure) [code = 80217920] [facility] Future Scheduled Test 2025-08-02 00:00:00 Lipid panel (procedure) [code = 93551966] [facility] Future Scheduled Test 2025-08-02 00:00:00 Lipid panel (procedure) [code = 86162499] [facility] Future Scheduled Test 2025-08-02 00:00:00 Lipid panel (procedure) [code = 33895995] [facility] Future Scheduled Test 2025-08-02 00:00:00 Lipid panel (procedure) [code = 16540964] [facility] Future Scheduled Test 2025-08-02 00:00:00 Lipid panel (procedure) [code = 91110075] [facility] Future Scheduled Test 2025-08-02 00:00:00 Lipid panel (procedure) [code = 10879945] [facility] Future Scheduled Test 2025-08-02 00:00:00 Lipid panel (procedure) [code = 03028572] [facility] Future Scheduled Test 2025-08-02 00:00:00 Lipid panel (procedure) [code = 61671992] [facility] Future Scheduled Test 2025-08-02 00:00:00 Lipid panel (procedure) [code = 95857587] [facility] Future Scheduled Test 2025-08-02 00:00:00 Lipid panel (procedure) [code = 09336638] [facility] Future Scheduled Test 2025-08-02 00:00:00 Lipid panel (procedure) [code = 31484163] [facility] Future Scheduled Test 2025-08-02 00:00:00 Lipid panel (procedure) [code = 78492939] [facility] Future Scheduled Test 2025-08-02 00:00:00 Lipid panel (procedure) [code = 54298061] [facility] Future Scheduled Test 2025-08-02 00:00:00 Lipid panel (procedure) [code = 67796684] [facility] Future Scheduled Test 2025-08-02 00:00:00 Lipid panel (procedure) [code = 24738276] [facility] Future Scheduled Test 2025-08-02 00:00:00 Lipid panel (procedure) [code = 07702722] [facility] Future Scheduled Test 2025-08-02 00:00:00 Lipid panel (procedure) [code = 39217643] [facility] Future Scheduled Test 2025-08-02 00:00:00 Lipid panel (procedure) [code = 91958353] [facility] Future Scheduled Test 2025-08-02 00:00:00 Lipid panel (procedure) [code = 51343403] [facility] Future Scheduled Test 2025-08-02 00:00:00 Lipid panel (procedure) [code = 77379883] [facility] Future Scheduled Test 2025-08-02 00:00:00 Lipid panel (procedure) [code = 14648767] [facility] Future Scheduled Test 2025-08-02 00:00:00 Lipid panel (procedure) [code = 36637009] [facility] Future Scheduled Test 2025-08-02 00:00:00 Lipid panel (procedure) [code = 82374625] [facility] Future Scheduled Test 2025-08-02 00:00:00 Lipid panel (procedure) [code = 44983188] [facility] Future Scheduled Test 2025-08-02 00:00:00 Lipid panel (procedure) [code = 50294968] [facility] Future Scheduled Test 2025-08-02 00:00:00 Lipid panel (procedure) [code = 22025244] [facility] Future Scheduled Test 2025-08-02 00:00:00 Lipid panel (procedure) [code = 24815784] [facility] Future Scheduled Test 2025-08-02 00:00:00 Lipid panel (procedure) [code = 70980761] [facility] Future Scheduled Test 2025-08-02 00:00:00 Lipid panel (procedure) [code = 49502537] [facility] Future Scheduled Test 2025-08-02 00:00:00 Lipid panel (procedure) [code = 44461385] [facility] Future Scheduled Test 2025-08-02 00:00:00 Lipid panel (procedure) [code = 18244366] [facility] Future Scheduled Test 2025-08-02 00:00:00 Lipid panel (procedure) [code = 82533906] [facility] Future Scheduled Test 2025-08-02 00:00:00 Lipid panel (procedure) [code = 48104227] [facility] Future Scheduled Test 2025-08-02 00:00:00 Lipid panel (procedure) [code = 59001474] [facility] Future Scheduled Test 2025-08-02 00:00:00 Lipid panel (procedure) [code = 46948313] [facility] Future Scheduled Test 2025-08-02 00:00:00 Lipid panel (procedure) [code = 76846256] [facility] Future Scheduled Test 2025-08-02 00:00:00 Lipid panel (procedure) [code = 70828772] [facility] Future Scheduled Test 2025-08-02 00:00:00 Lipid panel (procedure) [code = 68651476] [facility] Future Scheduled Test 2024-05-28 00:00:00 Tobacco Cessation Counseling and Screening (12+) [code = Tobacco Cessation Counseling and Screening (12+)] [facility] Future Scheduled Test 2024-05-28 00:00:00 Tobacco Cessation Counseling and Screening (12+) [code = Tobacco Cessation Counseling and Screening (12+)] [facility] Future Scheduled Test 2024-05-28 00:00:00 Tobacco Cessation Counseling and Screening (12+) [code = Tobacco Cessation Counseling and Screening (12+)] [facility] Future Scheduled Test 2024-05-28 00:00:00 Tobacco Cessation Counseling and Screening (12+) [code = Tobacco Cessation Counseling and Screening (12+)] [facility] Future Scheduled Test 2024-05-28 00:00:00 Tobacco Cessation Counseling and Screening (12+) [code = Tobacco Cessation Counseling and Screening (12+)] [facility] Future Scheduled Test 2024-05-28 00:00:00 Tobacco Cessation Counseling and Screening (12+) [code = Tobacco Cessation Counseling and Screening (12+)] [facility] Future Scheduled Test 2024-05-28 00:00:00 Tobacco Cessation Counseling and Screening (12+) [code = Tobacco Cessation Counseling and Screening (12+)] [facility] Scheduled Test 2024-05-28 00:00:00 Tobacco Cessation Counseling and Screening (12+) [code = Tobacco Cessation Counseling and Screening (12+)] [facility] Scheduled Test 2024-05-28 00:00:00 Tobacco Cessation Counseling and Screening (12+) [code = Tobacco Cessation Counseling and Screening (12+)] [facility] Scheduled Test 2024-05-28 00:00:00 Tobacco Cessation Counseling and Screening (12+) [code = Tobacco Cessation Counseling and Screening (12+)] [facility] Scheduled Test 2024-05-28 00:00:00 Tobacco Cessation Counseling and Screening (12+) [code = Tobacco Cessation Counseling and Screening (12+)] [facility] Scheduled Test 2024-05-28 00:00:00 Tobacco Cessation Counseling and Screening (12+) [code = Tobacco Cessation Counseling and Screening (12+)] [facility] Scheduled Test 2024-05-28 00:00:00 Tobacco Cessation Counseling and Screening (12+) [code = Tobacco Cessation Counseling and Screening (12+)] [facility] Scheduled Test 2024-05-28 00:00:00 Tobacco Cessation Counseling and Screening (12+) [code = Tobacco Cessation Counseling and Screening (12+)] [facility] Future Scheduled Test 2024-05-28 00:00:00 Tobacco Cessation Counseling and Screening (12+) [code = Tobacco Cessation Counseling and Screening (12+)] [facility] Scheduled Test 2024-05-28 00:00:00 Tobacco Cessation Counseling and Screening (12+) [code = Tobacco Cessation Counseling and Screening (12+)] [facility] Scheduled Test 2024-05-28 00:00:00 Tobacco Cessation Counseling and Screening (12+) [code = Tobacco Cessation Counseling and Screening (12+)] [facility] Scheduled Test 2024-05-28 00:00:00 Tobacco Cessation Counseling and Screening (12+) [code = Tobacco Cessation Counseling and Screening (12+)] [facility] Future Scheduled Test 2024-05-28 00:00:00 Tobacco Cessation Counseling and Screening (12+) [code = Tobacco Cessation Counseling and Screening (12+)] [facility] Future Scheduled Test 2024-05-28 00:00:00 Tobacco Cessation Counseling and Screening (12+) [code = Tobacco Cessation Counseling and Screening (12+)] [facility] Future Scheduled Test 2024-05-28 00:00:00 Tobacco Cessation Counseling and Screening (12+) [code = Tobacco Cessation Counseling and Screening (12+)] [facility] Future Scheduled Test 2024-05-28 00:00:00 Tobacco Cessation Counseling and Screening (12+) [code = Tobacco Cessation Counseling and Screening (12+)] [facility] Future Scheduled Test 2024-05-28 00:00:00 Tobacco Cessation Counseling and Screening (12+) [code = Tobacco Cessation Counseling and Screening (12+)] [facility] Future Scheduled Test 2024-05-28 00:00:00 Tobacco Cessation Counseling and Screening (12+) [code = Tobacco Cessation Counseling and Screening (12+)] [facility] Future Scheduled Test 2024-05-28 00:00:00 Tobacco Cessation Counseling and Screening (12+) [code = Tobacco Cessation Counseling and Screening (12+)] [facility] Future Scheduled Test 2024-05-28 00:00:00 Tobacco Cessation Counseling and Screening (12+) [code = Tobacco Cessation Counseling and Screening (12+)] [facility] Future Scheduled Test 2024-05-28 00:00:00 Tobacco Cessation Counseling and Screening (12+) [code = Tobacco Cessation Counseling and Screening (12+)] [facility] Future Scheduled Test 2024-05-28 00:00:00 Tobacco Cessation Counseling and Screening (12+) [code = Tobacco Cessation Counseling and Screening (12+)] [facility] Future Scheduled Test 2024-05-28 00:00:00 Tobacco Cessation Counseling and Screening (12+) [code = Tobacco Cessation Counseling and Screening (12+)] [facility] Future Scheduled Test 2024-05-28 00:00:00 Tobacco Cessation Counseling and Screening (12+) [code = Tobacco Cessation Counseling and Screening (12+)] [facility] Scheduled Test 2024-05-28 00:00:00 Tobacco Cessation Counseling and Screening (12+) [code = Tobacco Cessation Counseling and Screening (12+)] [facility] Scheduled Test 2024-05-28 00:00:00 Tobacco Cessation Counseling and Screening (12+) [code = Tobacco Cessation Counseling and Screening (12+)] [facility] Future Scheduled Test 2024-05-28 00:00:00 Tobacco Cessation Counseling and Screening (12+) [code = Tobacco Cessation Counseling and Screening (12+)] [facility] Scheduled Test 2024-05-28 00:00:00 Tobacco Cessation Counseling and Screening (12+) [code = Tobacco Cessation Counseling and Screening (12+)] [facility] Scheduled Test 2024-05-26 00:00:00 Tobacco Cessation Counseling and Screening (12+) [code = Tobacco Cessation Counseling and Screening (12+)] [facility] Scheduled Test 2024-05-26 00:00:00 Tobacco Cessation Counseling and Screening (12+) [code = Tobacco Cessation Counseling and Screening (12+)] [facility] Scheduled Test 2023-07-20 00:00:00 DEPRESSION SCREENING (12+) [code = DEPRESSION SCREENING (12+)] [facility] Scheduled Test 2023-07-20 00:00:00 DEPRESSION SCREENING (12+) [code = DEPRESSION SCREENING (12+)] [facility] Future Scheduled Test 2023-07-20 00:00:00 DEPRESSION SCREENING (12+) [code = DEPRESSION SCREENING (12+)] [facility] Scheduled Test 2023-07-20 00:00:00 DEPRESSION SCREENING (12+) [code = DEPRESSION SCREENING (12+)] [facility] Future Scheduled Test 2023-07-20 00:00:00 DEPRESSION SCREENING (12+) [code = DEPRESSION SCREENING (12+)] [facility] Future Scheduled Test 2023-07-20 00:00:00 DEPRESSION SCREENING (12+) [code = DEPRESSION SCREENING (12+)] [facility] Future Scheduled Test 2023-07-20 00:00:00 DEPRESSION SCREENING (12+) [code = DEPRESSION SCREENING (12+)] [facility] Future Scheduled Test 2023-07-20 00:00:00 DEPRESSION SCREENING (12+) [code = DEPRESSION SCREENING (12+)] [facility] Future Scheduled Test 2023-07-20 00:00:00 DEPRESSION SCREENING (12+) [code = DEPRESSION SCREENING (12+)] [facility] Future Scheduled Test 2023-07-20 00:00:00 DEPRESSION SCREENING (12+) [code = DEPRESSION SCREENING (12+)] [facility] Future Scheduled Test 2023-07-20 00:00:00 DEPRESSION SCREENING (12+) [code = DEPRESSION SCREENING (12+)] [facility] Future Scheduled Test 2023-07-20 00:00:00 DEPRESSION SCREENING (12+) [code = DEPRESSION SCREENING (12+)] [facility] Future Scheduled Test 2023-07-20 00:00:00 DEPRESSION SCREENING (12+) [code = DEPRESSION SCREENING (12+)] [facility] Future Scheduled Test 2023-07-20 00:00:00 DEPRESSION SCREENING (12+) [code = DEPRESSION SCREENING (12+)] [facility] Future Scheduled Test 2023-07-20 00:00:00 DEPRESSION SCREENING (12+) [code = DEPRESSION SCREENING (12+)] [facility] Future Scheduled Test 2023-07-20 00:00:00 DEPRESSION SCREENING (12+) [code = DEPRESSION SCREENING (12+)] [facility] Future Scheduled Test 2023-07-20 00:00:00 DEPRESSION SCREENING (12+) [code = DEPRESSION SCREENING (12+)] [facility] Future Scheduled Test 2023-07-20 00:00:00 DEPRESSION SCREENING (12+) [code = DEPRESSION SCREENING (12+)] [facility] Future Scheduled Test 2023-07-20 00:00:00 DEPRESSION SCREENING (12+) [code = DEPRESSION SCREENING (12+)] [facility] Future Scheduled Test 2023-07-20 00:00:00 DEPRESSION SCREENING (12+) [code = DEPRESSION SCREENING (12+)] [facility] Future Scheduled Test 2023-07-20 00:00:00 DEPRESSION SCREENING (12+) [code = DEPRESSION SCREENING (12+)] [facility] Future Scheduled Test 2023-07-20 00:00:00 DEPRESSION SCREENING (12+) [code = DEPRESSION SCREENING (12+)] [facility] Future Scheduled Test 2023-07-20 00:00:00 DEPRESSION SCREENING (12+) [code = DEPRESSION SCREENING (12+)] [facility] Future Scheduled Test 2023-07-20 00:00:00 DEPRESSION SCREENING (12+) [code = DEPRESSION SCREENING (12+)] [facility] Future Scheduled Test 2023-07-20 00:00:00 DEPRESSION SCREENING (12+) [code = DEPRESSION SCREENING (12+)] [facility] Future Scheduled Test 2023-07-20 00:00:00 DEPRESSION SCREENING (12+) [code = DEPRESSION SCREENING (12+)] [facility] Future Scheduled Test 2023-03-20 00:00:00 INFLUENZA VACCINE (Season Ended) [code = INFLUENZA VACCINE (Season Ended)] [facility] Future Scheduled Test 2023-03-20 00:00:00 INFLUENZA VACCINE (Season Ended) [code = INFLUENZA VACCINE (Season Ended)] [facility] Future Scheduled Test 2023-03-20 00:00:00 INFLUENZA VACCINE (Season Ended) [code = INFLUENZA VACCINE (Season Ended)] [facility] Future Scheduled Test 2023-03-20 00:00:00 INFLUENZA VACCINE (Season Ended) [code = INFLUENZA VACCINE (Season Ended)] [facility] Future Scheduled Test 2023-03-20 00:00:00 INFLUENZA VACCINE (Season Ended) [code = INFLUENZA VACCINE (Season Ended)] [facility] Future Scheduled Test 2023-03-20 00:00:00 INFLUENZA VACCINE (Season Ended) [code = INFLUENZA VACCINE (Season Ended)] [facility] Future Scheduled Test 2023-03-20 00:00:00 Influenza Vaccine (Season Ended) [code = Influenza Vaccine (Season Ended)] [facility] Future Scheduled Test 2023-03-20 00:00:00 Influenza Vaccine (Season Ended) [code = Influenza Vaccine (Season Ended)] [facility] Future Scheduled Test 2023-03-20 00:00:00 Influenza Vaccine (#1) [code = Influenza Vaccine (#1)] [facility] Future Scheduled Test 2023-03-20 00:00:00 Influenza Vaccine (#1) [code = Influenza Vaccine (#1)] [facility] Future Scheduled Test 2023-03-20 00:00:00 Influenza Vaccine (#1) [code = Influenza Vaccine (#1)] [facility] Future Scheduled Test 2023-03-20 00:00:00 Influenza Vaccine (#1) [code = Influenza Vaccine (#1)] [facility] Future Scheduled Test 2023-03-20 00:00:00 COVID-19 VACCINE ( season) [code = COVID-19 VACCINE ()] [facility] Future Scheduled Test 2023-03-20 00:00:00 Influenza Vaccine (#1) [code = Influenza Vaccine (#1)] [facility] Future Scheduled Test 2023-03-20 00:00:00 COVID-19 VACCINE ( season) [code = COVID-19 VACCINE ()] [facility] Future Scheduled Test 2023-03-20 00:00:00 Influenza Vaccine (#1) [code = Influenza Vaccine (#1)] [facility] Future Scheduled Test 2023-03-20 00:00:00 COVID-19 VACCINE ( season) [code = COVID-19 VACCINE ( season)] [facility] Future Scheduled Test 2023-03-20 00:00:00 Influenza Vaccine (#1) [code = Influenza Vaccine (#1)] [facility] Future Scheduled Test 2023-03-20 00:00:00 COVID-19 VACCINE ( season) [code = COVID-19 VACCINE ( season)] [facility] Future Scheduled Test 2023-03-20 00:00:00 Influenza Vaccine (#1) [code = Influenza Vaccine (#1)] [facility] Future Scheduled Test 2023-03-20 00:00:00 Influenza Vaccine (#1) [code = Influenza Vaccine (#1)] [facility] Future Scheduled Test 2023-03-20 00:00:00 COVID-19 VACCINE ( season) [code = COVID-19 VACCINE ( season)] [facility] Future Scheduled Test 2023-03-20 00:00:00 Influenza Vaccine (#1) [code = Influenza Vaccine (#1)] [facility] Future Scheduled Test 2023-03-20 00:00:00 COVID-19 VACCINE ( season) [code = COVID-19 VACCINE ()] [facility] Future Scheduled Test 2023-03-20 00:00:00 Influenza Vaccine (#1) [code = Influenza Vaccine (#1)] [facility] Future Scheduled Test 2023-03-20 00:00:00 COVID-19 VACCINE () [code = COVID-19 VACCINE ()] [facility] Future Scheduled Test 2023-03-20 00:00:00 Influenza Vaccine (#1) [code = Influenza Vaccine (#1)] [facility] Future Scheduled Test 2023-03-20 00:00:00 COVID-19 VACCINE ( season) [code = COVID-19 VACCINE ()] [facility] Future Scheduled Test 2023-03-20 00:00:00 Influenza Vaccine (#1) [code = Influenza Vaccine (#1)] [facility] Future Scheduled Test 2023-03-20 00:00:00 COVID-19 VACCINE ( season) [code = COVID-19 VACCINE ( season)] [facility] Future Scheduled Test 2023-03-20 00:00:00 Influenza Vaccine (#1) [code = Influenza Vaccine (#1)] [facility] Future Scheduled Test 2023-03-20 00:00:00 COVID-19 VACCINE ( season) [code = COVID-19 VACCINE ( season)] [facility] Future Scheduled Test 2023-03-20 00:00:00 Influenza Vaccine (#1) [code = Influenza Vaccine (#1)] [facility] Future Scheduled Test 2023-03-20 00:00:00 COVID-19 VACCINE ( season) [code = COVID-19 VACCINE ()] [facility] Future Scheduled Test 2023-03-20 00:00:00 Influenza Vaccine (#1) [code = Influenza Vaccine (#1)] [facility] Future Scheduled Test 2023-03-20 00:00:00 Influenza Vaccine (#1) [code = Influenza Vaccine (#1)] [facility] Future Scheduled Test 2023-03-20 00:00:00 COVID-19 VACCINE () [code = COVID-19 VACCINE ()] [facility] Future Scheduled Test 2023-03-20 00:00:00 Influenza Vaccine (#1) [code = Influenza Vaccine (#1)] [facility] Future Scheduled Test 2023-03-20 00:00:00 COVID-19 VACCINE () [code = COVID-19 VACCINE ()] [facility] Future Scheduled Test 2023-03-20 00:00:00 Influenza Vaccine (#1) [code = Influenza Vaccine (#1)] [facility] Future Scheduled Test 2023-03-20 00:00:00 COVID-19 VACCINE ( season) [code = COVID-19 VACCINE ()] [facility] Future Scheduled Test 2023-03-20 00:00:00 Influenza Vaccine (#1) [code = Influenza Vaccine (#1)] [facility] Future Scheduled Test 2023-03-20 00:00:00 COVID-19 VACCINE () [code = COVID-19 VACCINE ( season)] [facility] Future Scheduled Test 2023-03-20 00:00:00 Influenza Vaccine (#1) [code = Influenza Vaccine (#1)] [facility] Future Scheduled Test 2023-03-20 00:00:00 COVID-19 VACCINE ( season) [code = COVID-19 VACCINE ( season)] [facility] Future Scheduled Test 2023-03-20 00:00:00 Influenza Vaccine (#1) [code = Influenza Vaccine (#1)] [facility] Future Scheduled Test 2023-03-20 00:00:00 COVID-19 VACCINE ( season) [code = COVID-19 VACCINE ()] [facility] Future Scheduled Test 2023-03-20 00:00:00 Influenza Vaccine (#1) [code = Influenza Vaccine (#1)] [facility] Future Scheduled Test 2023-03-20 00:00:00 Influenza Vaccine (#1) [code = Influenza Vaccine (#1)] [facility] Future Scheduled Test 2023-03-20 00:00:00 COVID-19 VACCINE ( season) [code = COVID-19 VACCINE ()] [facility] Future Scheduled Test 2023-03-20 00:00:00 Influenza Vaccine (#1) [code = Influenza Vaccine (#1)] [facility] Future Scheduled Test 2023-03-20 00:00:00 COVID-19 VACCINE ( season) [code = COVID-19 VACCINE ( season)] [facility] Future Scheduled Test 2023-03-20 00:00:00 Influenza Vaccine (#1) [code = Influenza Vaccine (#1)] [facility] Future Scheduled Test 2023-03-20 00:00:00 COVID-19 VACCINE ( season) [code = COVID-19 VACCINE ( season)] [facility] Future Scheduled Test 2023-03-20 00:00:00 Influenza Vaccine (#1) [code = Influenza Vaccine (#1)] [facility] Future Scheduled Test 2023-03-20 00:00:00 COVID-19 VACCINE ( season) [code = COVID-19 VACCINE ( season)] [facility] Future Scheduled Test 2023-03-20 00:00:00 Influenza Vaccine (#1) [code = Influenza Vaccine (#1)] [facility] Future Scheduled Test 2023-03-20 00:00:00 Influenza Vaccine (#1) [code = Influenza Vaccine (#1)] [facility] Future Scheduled Test 2023-03-20 00:00:00 COVID-19 VACCINE ( season) [code = COVID-19 VACCINE ()] [facility] Future Scheduled Test 2023-03-20 00:00:00 Influenza Vaccine (#1) [code = Influenza Vaccine (#1)] [facility] Future Scheduled Test 2023-03-20 00:00:00 COVID-19 VACCINE ( season) [code = COVID-19 VACCINE ()] [facility] Future Scheduled Test 2023-03-20 00:00:00 Influenza Vaccine (#1) [code = Influenza Vaccine (#1)] [facility] Future Scheduled Test 2023-03-20 00:00:00 COVID-19 VACCINE ( season) [code = COVID-19 VACCINE ( season)] [facility] Future Scheduled Test 2023-03-20 00:00:00 Influenza Vaccine (#1) [code = Influenza Vaccine (#1)] [facility] Future Scheduled Test 2023-03-20 00:00:00 COVID-19 VACCINE ( season) [code = COVID-19 VACCINE ( season)] [facility] Future Scheduled Test 2023-03-20 00:00:00 Influenza Vaccine (#1) [code = Influenza Vaccine (#1)] [facility] Future Scheduled Test 2023-03-20 00:00:00 COVID-19 VACCINE ( season) [code = COVID-19 VACCINE ( season)] [facility] Future Scheduled Test 2023-03-20 00:00:00 Influenza Vaccine (#1) [code = Influenza Vaccine (#1)] [facility] Future Scheduled Test 2023-03-20 00:00:00 COVID-19 VACCINE ( season) [code = COVID-19 VACCINE ( season)] [facility] Future Scheduled Test 2023-03-20 00:00:00 Influenza Vaccine (#1) [code = Influenza Vaccine (#1)] [facility] Future Scheduled Test 2023-03-20 00:00:00 Influenza Vaccine (#1) [code = Influenza Vaccine (#1)] [facility] Future Scheduled Test 2023-03-20 00:00:00 COVID-19 VACCINE ( season) [code = COVID-19 VACCINE ( season)] [facility] Future Scheduled Test 2023-03-20 00:00:00 Influenza Vaccine (#1) [code = Influenza Vaccine (#1)] [facility] Future Scheduled Test 2023-03-20 00:00:00 Influenza Vaccine (#1) [code = Influenza Vaccine (#1)] [facility] Future Scheduled Test 2023-03-20 00:00:00 Influenza Vaccine (#1) [code = Influenza Vaccine (#1)] [facility] Future Scheduled Test 2023-03-20 00:00:00 Influenza Vaccine (#1) [code = Influenza Vaccine (#1)] [facility] Future Scheduled Test 2023-03-20 00:00:00 Influenza Vaccine (#1) [code = Influenza Vaccine (#1)] [facility] Future Scheduled Test 2023-03-20 00:00:00 Influenza Vaccine (#1) [code = Influenza Vaccine (#1)] [facility] Future Scheduled Test 2023-03-20 00:00:00 Influenza Vaccine (#1) [code = Influenza Vaccine (#1)] [facility] Future Scheduled Test 2023-03-20 00:00:00 Influenza Vaccine (#1) [code = Influenza Vaccine (#1)] [facility] Future Scheduled Test 2023-03-20 00:00:00 Influenza Vaccine (#1) [code = Influenza Vaccine (#1)] [facility] Future Scheduled Test 2023-03-20 00:00:00 Influenza Vaccine (#1) [code = Influenza Vaccine (#1)] [facility] Future Scheduled Test 2023-03-20 00:00:00 Influenza Vaccine (#1) [code = Influenza Vaccine (#1)] [facility] Future Scheduled Test 2023-03-20 00:00:00 COVID-19 VACCINE ( season) [code = COVID-19 VACCINE ( season)] [facility] Future Scheduled Test 2022-07-20 00:00:00 DEPRESSION SCREENING (12+) [code = DEPRESSION SCREENING (12+)] [facility] Future Scheduled Test 2022-07-20 00:00:00 DEPRESSION SCREENING (12+) [code = DEPRESSION SCREENING (12+)] [facility] Future Scheduled Test 2022-07-20 00:00:00 DEPRESSION SCREENING (12+) [code = DEPRESSION SCREENING (12+)] [facility] Future Scheduled Test 2022-07-20 00:00:00 DEPRESSION SCREENING (12+) [code = DEPRESSION SCREENING (12+)] [facility] Future Scheduled Test 2022-07-20 00:00:00 DEPRESSION SCREENING (12+) [code = DEPRESSION SCREENING (12+)] [facility] Future Scheduled Test 2022-07-20 00:00:00 DEPRESSION SCREENING (12+) [code = DEPRESSION SCREENING (12+)] [facility] Future Scheduled Test 2022-07-20 00:00:00 DEPRESSION SCREENING (12+) [code = DEPRESSION SCREENING (12+)] [facility] Future Scheduled Test 2022-07-20 00:00:00 DEPRESSION SCREENING (12+) [code = DEPRESSION SCREENING (12+)] [facility] Future Scheduled Test 2022-07-20 00:00:00 DEPRESSION SCREENING (12+) [code = DEPRESSION SCREENING (12+)] [facility] Future Scheduled Test 2022-07-20 00:00:00 DEPRESSION SCREENING (12+) [code = DEPRESSION SCREENING (12+)] [facility] Future Scheduled Test 2022-07-20 00:00:00 DEPRESSION SCREENING (12+) [code = DEPRESSION SCREENING (12+)] [facility] Future Scheduled Test 2022-07-20 00:00:00 DEPRESSION SCREENING (12+) [code = DEPRESSION SCREENING (12+)] [facility] Future Scheduled Test 2022-07-20 00:00:00 DEPRESSION SCREENING (12+) [code = DEPRESSION SCREENING (12+)] [facility] Future Scheduled Test 2022-07-20 00:00:00 DEPRESSION SCREENING (12+) [code = DEPRESSION SCREENING (12+)] [facility] Future Scheduled Test 2022-07-20 00:00:00 DEPRESSION SCREENING (12+) [code = DEPRESSION SCREENING (12+)] [facility] Future Scheduled Test 2022-07-20 00:00:00 DEPRESSION SCREENING (12+) [code = DEPRESSION SCREENING (12+)] [facility] Future Scheduled Test 2022-07-20 00:00:00 DEPRESSION SCREENING (12+) [code = DEPRESSION SCREENING (12+)] [facility] Future Scheduled Test 2022-07-20 00:00:00 DEPRESSION SCREENING (12+) [code = DEPRESSION SCREENING (12+)] [facility] Future Scheduled Test 2022-07-20 00:00:00 DEPRESSION SCREENING (12+) [code = DEPRESSION SCREENING (12+)] [facility] Future Scheduled Test 2022-07-20 00:00:00 DEPRESSION SCREENING (12+) [code = DEPRESSION SCREENING (12+)] [facility] Future Scheduled Test 2022-07-20 00:00:00 DEPRESSION SCREENING (12+) [code = DEPRESSION SCREENING (12+)] [facility] Future Scheduled Test 2022-07-20 00:00:00 DEPRESSION SCREENING (12+) [code = DEPRESSION SCREENING (12+)] [facility] Future Scheduled Test 2022-07-20 00:00:00 DEPRESSION SCREENING (12+) [code = DEPRESSION SCREENING (12+)] [facility] Future Scheduled Test 2022-07-20 00:00:00 DEPRESSION SCREENING (12+) [code = DEPRESSION SCREENING (12+)] [facility] Future Scheduled Test 2022-07-20 00:00:00 DEPRESSION SCREENING (12+) [code = DEPRESSION SCREENING (12+)] [facility] Future Scheduled Test 2022-07-20 00:00:00 DEPRESSION SCREENING (12+) [code = DEPRESSION SCREENING (12+)] [facility] Future Scheduled Test 2022-07-20 00:00:00 DEPRESSION SCREENING (12+) [code = DEPRESSION SCREENING (12+)] [facility] Future Scheduled Test 2022-07-20 00:00:00 DEPRESSION SCREENING (12+) [code = DEPRESSION SCREENING (12+)] [facility] Future Scheduled Test 2022-07-20 00:00:00 DEPRESSION SCREENING (12+) [code = DEPRESSION SCREENING (12+)] [facility] Future Scheduled Test 2022-07-20 00:00:00 DEPRESSION SCREENING (12+) [code = DEPRESSION SCREENING (12+)] [facility] Future Scheduled Test 2022-07-20 00:00:00 DEPRESSION SCREENING (12+) [code = DEPRESSION SCREENING (12+)] [facility] Future Scheduled Test 2022-07-20 00:00:00 DEPRESSION SCREENING (12+) [code = DEPRESSION SCREENING (12+)] [facility] Future Scheduled Test 2022-07-20 00:00:00 DEPRESSION SCREENING (12+) [code = DEPRESSION SCREENING (12+)] [facility] Future Scheduled Test 2022-06-21 00:00:00 COVID-19 VACCINE (4 - Booster for Pfizer series) [code = COVID-19 VACCINE (4 - Booster for Pfizer series)] [facility] Future Scheduled Test 2022-06-21 00:00:00 COVID-19 VACCINE (4 - Booster for Pfizer series) [code = COVID-19 VACCINE (4 - Booster for Pfizer series)] [facility] Future Scheduled Test 2022-06-21 00:00:00 COVID-19 VACCINE (4 - Booster for Pfizer series) [code = COVID-19 VACCINE (4 - Booster for Pfizer series)] [facility] Future Scheduled Test 2022-06-21 00:00:00 COVID-19 VACCINE (4 - Booster for Pfizer series) [code = COVID-19 VACCINE (4 - Booster for Pfizer series)] [facility] Future Scheduled Test 2022-04-16 00:00:00 COVID-19 VACCINE (4 - Booster for Pfizer series) [code = COVID-19 VACCINE (4 - Booster for Pfizer series)] [facility] Future Scheduled Test 2022-04-16 00:00:00 COVID-19 VACCINE (4 - Booster for Pfizer series) [code = COVID-19 VACCINE (4 - Booster for Pfizer series)] [facility] Future Scheduled Test 2022-04-16 00:00:00 COVID-19 VACCINE (4 - Booster for Pfizer series) [code = COVID-19 VACCINE (4 - Booster for Pfizer series)] [facility] Future Scheduled Test 2022-04-16 00:00:00 COVID-19 VACCINE (4 - Booster for Pfizer series) [code = COVID-19 VACCINE (4 - Booster for Pfizer series)] [facility] Future Scheduled Test 2022-04-16 00:00:00 COVID-19 VACCINE (4 - Booster for Pfizer series) [code = COVID-19 VACCINE (4 - Booster for Pfizer series)] [facility] Future Scheduled Test 2022-04-16 00:00:00 COVID-19 VACCINE (4 - Booster for Pfizer series) [code = COVID-19 VACCINE (4 - Booster for Pfizer series)] [facility] Future Scheduled Test 2022-04-16 00:00:00 COVID-19 VACCINE (4 - Booster for Pfizer series) [code = COVID-19 VACCINE (4 - Booster for Pfizer series)] [facility] Future Scheduled Test 2022-04-16 00:00:00 COVID-19 VACCINE (4 - Booster for Pfizer series) [code = COVID-19 VACCINE (4 - Booster for Pfizer series)] [facility] Future Scheduled Test 2022-04-16 00:00:00 COVID-19 VACCINE (4 - Booster for Pfizer series) [code = COVID-19 VACCINE (4 - Booster for Pfizer series)] [facility] Future Scheduled Test 2022-04-16 00:00:00 COVID-19 VACCINE (4 - Booster for Pfizer series) [code = COVID-19 VACCINE (4 - Booster for Pfizer series)] [facility] Future Scheduled Test 2022-04-16 00:00:00 COVID-19 VACCINE (4 - Booster for Pfizer series) [code = COVID-19 VACCINE (4 - Booster for Pfizer series)] [facility] Future Scheduled Test 2022-04-16 00:00:00 COVID-19 VACCINE (4 - Booster for Pfizer series) [code = COVID-19 VACCINE (4 - Booster for Pfizer series)] [facility] Future Scheduled Test 2022-04-16 00:00:00 COVID-19 VACCINE (4 - Booster for Pfizer series) [code = COVID-19 VACCINE (4 - Booster for Pfizer series)] [facility] Future Scheduled Test 2022-04-16 00:00:00 COVID-19 VACCINE (4 - Booster for Pfizer series) [code = COVID-19 VACCINE (4 - Booster for Pfizer series)] [facility] Future Scheduled Test 2022-04-16 00:00:00 COVID-19 VACCINE (4 - Booster for Pfizer series) [code = COVID-19 VACCINE (4 - Booster for Pfizer series)] [facility] Future Scheduled Test 2022-04-16 00:00:00 COVID-19 VACCINE (4 - Booster for Pfizer series) [code = COVID-19 VACCINE (4 - Booster for Pfizer series)] [facility] Future Scheduled Test 2022-04-16 00:00:00 COVID-19 VACCINE (4 - Booster for Pfizer series) [code = COVID-19 VACCINE (4 - Booster for Pfizer series)] [facility] Future Scheduled Test 2022-04-16 00:00:00 COVID-19 VACCINE (4 - Booster for Pfizer series) [code = COVID-19 VACCINE (4 - Booster for Pfizer series)] [facility] Future Scheduled Test 2022-04-16 00:00:00 COVID-19 VACCINE (4 - Booster for Pfizer series) [code = COVID-19 VACCINE (4 - Booster for Pfizer series)] [facility] Future Scheduled Test 2022-04-16 00:00:00 COVID-19 VACCINE (4 - Booster for Pfizer series) [code = COVID-19 VACCINE (4 - Booster for Pfizer series)] [facility] Future Scheduled Test 2022-04-16 00:00:00 COVID-19 VACCINE (4 - Pfizer series) [code = COVID-19 VACCINE (4 - Pfizer series)] [facility] Future Scheduled Test 2022-04-16 00:00:00 COVID-19 VACCINE (4 - Pfizer series) [code = COVID-19 VACCINE (4 - Pfizer series)] [facility] Future Scheduled Test 2022-04-16 00:00:00 COVID-19 VACCINE (4 - Pfizer series) [code = COVID-19 VACCINE (4 - Pfizer series)] [facility] Future Scheduled Test 2022-04-16 00:00:00 COVID-19 VACCINE (4 - Pfizer series) [code = COVID-19 VACCINE (4 - Pfizer series)] [facility] Future Scheduled Test 2022-04-16 00:00:00 COVID-19 VACCINE (4 - Booster for Pfizer series) [code = COVID-19 VACCINE (4 - Booster for Pfizer series)] [facility] Future Scheduled Test 2022-04-16 00:00:00 COVID-19 VACCINE (4 - Pfizer series) [code = COVID-19 VACCINE (4 - Pfizer series)] [facility] Future Scheduled Test 2022-03-20 00:00:00 INFLUENZA VACCINE (#1) [code = INFLUENZA VACCINE (#1)] [facility] Future Scheduled Test 2022-03-20 00:00:00 INFLUENZA VACCINE (#1) [code = INFLUENZA VACCINE (#1)] [facility] Future Scheduled Test 2022-03-20 00:00:00 INFLUENZA VACCINE (#1) [code = INFLUENZA VACCINE (#1)] [facility] Future Scheduled Test 2022-03-20 00:00:00 INFLUENZA VACCINE (#1) [code = INFLUENZA VACCINE (#1)] [facility] Future Scheduled Test 2022-01-14 00:00:00 SHINGLES VACCINES (1 of 2) [code = SHINGLES VACCINES (1 of 2)] [facility] Future Scheduled Test 2022-01-14 00:00:00 SHINGLES VACCINES (1 of 2) [code = SHINGLES VACCINES (1 of 2)] [facility] Future Scheduled Test 2022-01-14 00:00:00 SHINGLES VACCINES (1 of 2) [code = SHINGLES VACCINES (1 of 2)] [facility] Future Scheduled Test 2022-01-14 00:00:00 SHINGLES VACCINES (1 of 2) [code = SHINGLES VACCINES (1 of 2)] [facility] Future Scheduled Test 2022-01-14 00:00:00 SHINGLES VACCINES (1 of 2) [code = SHINGLES VACCINES (1 of 2)] [facility] Future Scheduled Test 2022-01-14 00:00:00 SHINGLES VACCINES (1 of 2) [code = SHINGLES VACCINES (1 of 2)] [facility] Future Scheduled Test 2022-01-14 00:00:00 SHINGLES VACCINES (1 of 2) [code = SHINGLES VACCINES (1 of 2)] [facility] Future Scheduled Test 2022-01-14 00:00:00 SHINGLES VACCINES (1 of 2) [code = SHINGLES VACCINES (1 of 2)] [facility] Future Scheduled Test 2022-01-14 00:00:00 SHINGLES VACCINES (1 of 2) [code = SHINGLES VACCINES (1 of 2)] [facility] Future Scheduled Test 2022-01-14 00:00:00 SHINGLES VACCINES (1 of 2) [code = SHINGLES VACCINES (1 of 2)] [facility] Future Scheduled Test 2022-01-14 00:00:00 SHINGLES VACCINES (1 of 2) [code = SHINGLES VACCINES (1 of 2)] [facility] Future Scheduled Test 2022-01-14 00:00:00 SHINGLES VACCINES (1 of 2) [code = SHINGLES VACCINES (1 of 2)] [facility] Future Scheduled Test 2022-01-14 00:00:00 SHINGLES VACCINES (1 of 2) [code = SHINGLES VACCINES (1 of 2)] [facility] Future Scheduled Test 2022-01-14 00:00:00 SHINGLES VACCINES (1 of 2) [code = SHINGLES VACCINES (1 of 2)] [facility] Future Scheduled Test 2022-01-14 00:00:00 SHINGLES VACCINES (1 of 2) [code = SHINGLES VACCINES (1 of 2)] [facility] Future Scheduled Test 2022-01-14 00:00:00 Screening for malignant neoplasm of lung (procedure) [code = [id number]] [facility] Future Scheduled Test 2022-01-14 00:00:00 SHINGLES VACCINES (1 of 2) [code = SHINGLES VACCINES (1 of 2)] [facility] Future Scheduled Test 2022-01-14 00:00:00 Screening for malignant neoplasm of lung (procedure) [code = [id number]] [facility] Future Scheduled Test 2022-01-14 00:00:00 SHINGLES VACCINES (1 of 2) [code = SHINGLES VACCINES (1 of 2)] [facility] Future Scheduled Test 2022-01-14 00:00:00 Screening for malignant neoplasm of lung (procedure) [code = [id number]] [facility] Future Scheduled Test 2022-01-14 00:00:00 SHINGLES VACCINES (1 of 2) [code = SHINGLES VACCINES (1 of 2)] [facility] Future Scheduled Test 2022-01-14 00:00:00 Screening for malignant neoplasm of lung (procedure) [code = 863281013] [facility] Future Scheduled Test 2022-01-14 00:00:00 SHINGLES VACCINES (1 of 2) [code = SHINGLES VACCINES (1 of 2)] [facility] Future Scheduled Test 2022-01-14 00:00:00 Screening for malignant neoplasm of lung (procedure) [code = [id number]] [facility] Future Scheduled Test 2022-01-14 00:00:00 SHINGLES VACCINES (1 of 2) [code = SHINGLES VACCINES (1 of 2)] [facility] Future Scheduled Test 2022-01-14 00:00:00 Screening for malignant neoplasm of lung (procedure) [code = [id number]] [facility] Future Scheduled Test 2022-01-14 00:00:00 SHINGLES VACCINES (1 of 2) [code = SHINGLES VACCINES (1 of 2)] [facility] Future Scheduled Test 2022-01-14 00:00:00 Screening for malignant neoplasm of lung (procedure) [code = [id number]] [facility] Future Scheduled Test 2022-01-14 00:00:00 SHINGLES VACCINES (1 of 2) [code = SHINGLES VACCINES (1 of 2)] [facility] Future Scheduled Test 2022-01-14 00:00:00 Screening for malignant neoplasm of lung (procedure) [code = 611641477] [facility] Future Scheduled Test 2022-01-14 00:00:00 SHINGLES VACCINES (1 of 2) [code = SHINGLES VACCINES (1 of 2)] [facility] Future Scheduled Test 2022-01-14 00:00:00 Screening for malignant neoplasm of lung (procedure) [code = [id number]] [facility] Future Scheduled Test 2022-01-14 00:00:00 SHINGLES VACCINES (1 of 2) [code = SHINGLES VACCINES (1 of 2)] [facility] Future Scheduled Test 2022-01-14 00:00:00 Screening for malignant neoplasm of lung (procedure) [code = 445181047] [facility] Future Scheduled Test 2022-01-14 00:00:00 SHINGLES VACCINES (1 of 2) [code = SHINGLES VACCINES (1 of 2)] [facility] Future Scheduled Test 2022-01-14 00:00:00 Screening for malignant neoplasm of lung (procedure) [code = [id number]] [facility] Future Scheduled Test 2022-01-14 00:00:00 SHINGLES VACCINES (1 of 2) [code = SHINGLES VACCINES (1 of 2)] [facility] Future Scheduled Test 2022-01-14 00:00:00 Screening for malignant neoplasm of lung (procedure) [code = [id number]] [facility] Future Scheduled Test 2022-01-14 00:00:00 SHINGLES VACCINES (1 of 2) [code = SHINGLES VACCINES (1 of 2)] [facility] Future Scheduled Test 2022-01-14 00:00:00 Screening for malignant neoplasm of lung (procedure) [code = 945761344] [facility] Future Scheduled Test 2022-01-14 00:00:00 SHINGLES VACCINES (1 of 2) [code = SHINGLES VACCINES (1 of 2)] [facility] Future Scheduled Test 2022-01-14 00:00:00 Screening for malignant neoplasm of lung (procedure) [code = 583761623] [facility] Future Scheduled Test 2022-01-14 00:00:00 SHINGLES VACCINES (1 of 2) [code = SHINGLES VACCINES (1 of 2)] [facility] Future Scheduled Test 2022-01-14 00:00:00 Screening for malignant neoplasm of lung (procedure) [code = 571437968] [facility] Future Scheduled Test 2022-01-14 00:00:00 SHINGLES VACCINES (1 of 2) [code = SHINGLES VACCINES (1 of 2)] [facility] Future Scheduled Test 2022-01-14 00:00:00 Screening for malignant neoplasm of lung (procedure) [code = 211580485] [facility] Future Scheduled Test 2022-01-14 00:00:00 SHINGLES VACCINES (1 of 2) [code = SHINGLES VACCINES (1 of 2)] [facility] Future Scheduled Test 2022-01-14 00:00:00 Screening for malignant neoplasm of lung (procedure) [code = 160167085] [facility] Future Scheduled Test 2022-01-14 00:00:00 SHINGLES VACCINES (1 of 2) [code = SHINGLES VACCINES (1 of 2)] [facility] Future Scheduled Test 2022-01-14 00:00:00 Screening for malignant neoplasm of lung (procedure) [code = 230632798] [facility] Future Scheduled Test 2022-01-14 00:00:00 SHINGLES VACCINES (1 of 2) [code = SHINGLES VACCINES (1 of 2)] [facility] Future Scheduled Test 2022-01-14 00:00:00 Screening for malignant neoplasm of lung (procedure) [code = 685727772] [facility] Future Scheduled Test 2022-01-14 00:00:00 Screening for malignant neoplasm of lung (procedure) [code = 878617740] [facility] Future Scheduled Test 2022-01-14 00:00:00 SHINGLES VACCINES (1 of 2) [code = SHINGLES VACCINES (1 of 2)] [facility] Future Scheduled Test 2022-01-14 00:00:00 SHINGLES VACCINES (1 of 2) [code = SHINGLES VACCINES (1 of 2)] [facility] Future Scheduled Test 2022-01-14 00:00:00 Screening for malignant neoplasm of lung (procedure) [code = 567377481] [facility] Future Scheduled Test 2022-01-14 00:00:00 SHINGLES VACCINES (1 of 2) [code = SHINGLES VACCINES (1 of 2)] [facility] Future Scheduled Test 2022-01-14 00:00:00 Screening for malignant neoplasm of lung (procedure) [code = 392828071] [facility] Future Scheduled Test 2022-01-14 00:00:00 SHINGLES VACCINES (1 of 2) [code = SHINGLES VACCINES (1 of 2)] [facility] Future Scheduled Test 2022-01-14 00:00:00 Screening for malignant neoplasm of lung (procedure) [code = 222185090] [facility] Future Scheduled Test 2022-01-14 00:00:00 SHINGLES VACCINES (1 of 2) [code = SHINGLES VACCINES (1 of 2)] [facility] Future Scheduled Test 2022-01-14 00:00:00 Screening for malignant neoplasm of lung (procedure) [code = 059988139] [facility] Future Scheduled Test 2022-01-14 00:00:00 Screening for malignant neoplasm of lung (procedure) [code = 112887085] [facility] Future Scheduled Test 2022-01-14 00:00:00 SHINGLES VACCINES (1 of 2) [code = SHINGLES VACCINES (1 of 2)] [facility] Future Scheduled Test 2022-01-14 00:00:00 SHINGLES VACCINES (1 of 2) [code = SHINGLES VACCINES (1 of 2)] [facility] Future Scheduled Test 2022-01-14 00:00:00 Screening for malignant neoplasm of lung (procedure) [code = 133887084] [facility] Future Scheduled Test 2022-01-14 00:00:00 SHINGLES VACCINES (1 of 2) [code = SHINGLES VACCINES (1 of 2)] [facility] Future Scheduled Test 2022-01-14 00:00:00 Screening for malignant neoplasm of lung (procedure) [code = 903064837] [facility] Future Scheduled Test 2022-01-14 00:00:00 SHINGLES VACCINES (1 of 2) [code = SHINGLES VACCINES (1 of 2)] [facility] Future Scheduled Test 2022-01-14 00:00:00 Screening for malignant neoplasm of lung (procedure) [code = 965868043] [facility] Future Scheduled Test 2022-01-14 00:00:00 SHINGLES VACCINES (1 of 2) [code = SHINGLES VACCINES (1 of 2)] [facility] Future Scheduled Test 2022-01-14 00:00:00 Screening for malignant neoplasm of lung (procedure) [code = 489425402] [facility] Future Scheduled Test 2022-01-14 00:00:00 SHINGLES VACCINES (1 of 2) [code = SHINGLES VACCINES (1 of 2)] [facility] Future Scheduled Test 2022-01-14 00:00:00 Screening for malignant neoplasm of lung (procedure) [code = 695426775] [facility] Future Scheduled Test 2022-01-14 00:00:00 SHINGLES VACCINES (1 of 2) [code = SHINGLES VACCINES (1 of 2)] [facility] Future Scheduled Test 2022-01-14 00:00:00 Screening for malignant neoplasm of lung (procedure) [code = 015674573] [facility] Future Scheduled Test 2022-01-14 00:00:00 Screening for malignant neoplasm of lung (procedure) [code = 598954117] [facility] Future Scheduled Test 2022-01-14 00:00:00 SHINGLES VACCINES (1 of 2) [code = SHINGLES VACCINES (1 of 2)] [facility] Future Scheduled Test 2022-01-14 00:00:00 SHINGLES VACCINES (1 of 2) [code = SHINGLES VACCINES (1 of 2)] [facility] Future Scheduled Test 2022-01-14 00:00:00 Screening for malignant neoplasm of lung (procedure) [code = 329754055] [facility] Future Scheduled Test 2022-01-14 00:00:00 SHINGLES VACCINES (1 of 2) [code = SHINGLES VACCINES (1 of 2)] [facility] Future Scheduled Test 2022-01-14 00:00:00 Screening for malignant neoplasm of lung (procedure) [code = 479378047] [facility] Future Scheduled Test 2022-01-14 00:00:00 SHINGLES VACCINES (1 of 2) [code = SHINGLES VACCINES (1 of 2)] [facility] Future Scheduled Test 2022-01-14 00:00:00 Screening for malignant neoplasm of lung (procedure) [code = 730256082] [facility] Future Scheduled Test 2022-01-14 00:00:00 SHINGLES VACCINES (1 of 2) [code = SHINGLES VACCINES (1 of 2)] [facility] Future Scheduled Test 2022-01-14 00:00:00 SHINGLES VACCINES (1 of 2) [code = SHINGLES VACCINES (1 of 2)] [facility] Future Scheduled Test 2022-01-14 00:00:00 SHINGLES VACCINES (1 of 2) [code = SHINGLES VACCINES (1 of 2)] [facility] Future Scheduled Test 2022-01-14 00:00:00 Screening for malignant neoplasm of lung (procedure) [code = 318157867] [facility] Future Scheduled Test 2022-01-14 00:00:00 SHINGLES VACCINES (1 of 2) [code = SHINGLES VACCINES (1 of 2)] [facility] Future Scheduled Test 2022-01-14 00:00:00 Screening for malignant neoplasm of lung (procedure) [code = 927336281] [facility] Future Scheduled Test 2022-01-14 00:00:00 SHINGLES VACCINES (1 of 2) [code = SHINGLES VACCINES (1 of 2)] [facility] Future Scheduled Test 2022-01-14 00:00:00 Screening for malignant neoplasm of lung (procedure) [code = 445900875] [facility] Future Scheduled Test 2022-01-14 00:00:00 SHINGLES VACCINES (1 of 2) [code = SHINGLES VACCINES (1 of 2)] [facility] Future Scheduled Test 2022-01-14 00:00:00 Screening for malignant neoplasm of lung (procedure) [code = 623989888] [facility] Future Scheduled Test 2022-01-14 00:00:00 SHINGLES VACCINES (1 of 2) [code = SHINGLES VACCINES (1 of 2)] [facility] Future Scheduled Test 2022-01-14 00:00:00 Screening for malignant neoplasm of lung (procedure) [code = 413175512] [facility] Future Scheduled Test 2022-01-14 00:00:00 SHINGLES VACCINES (1 of 2) [code = SHINGLES VACCINES (1 of 2)] [facility] Future Scheduled Test 2022-01-14 00:00:00 Screening for malignant neoplasm of lung (procedure) [code = 672376623] [facility] Future Scheduled Test 2022-01-14 00:00:00 SHINGLES VACCINES (1 of 2) [code = SHINGLES VACCINES (1 of 2)] [facility] Future Scheduled Test 2022-01-14 00:00:00 Screening for malignant neoplasm of lung (procedure) [code = 877371924] [facility] Future Scheduled Test 2022-01-14 00:00:00 SHINGLES VACCINES (1 of 2) [code = SHINGLES VACCINES (1 of 2)] [facility] Future Scheduled Test 2013-12-15 00:00:00 PNEUMOCOCCAL VACCINE 0-64 YRS (2 - PCV) [code = PNEUMOCOCCAL VACCINE 0-64 YRS (2 - PCV)] [facility] Future Scheduled Test 2013-12-15 00:00:00 PNEUMOCOCCAL VACCINE 0-64 YRS (2 - PCV) [code = PNEUMOCOCCAL VACCINE 0-64 YRS (2 - PCV)] [facility] Future Scheduled Test 2013-12-15 00:00:00 PNEUMOCOCCAL VACCINE 0-64 YRS (2 - PCV) [code = PNEUMOCOCCAL VACCINE 0-64 YRS (2 - PCV)] [facility] Future Scheduled Test 2013-12-15 00:00:00 PNEUMOCOCCAL VACCINE 0-64 YRS (2 - PCV) [code = PNEUMOCOCCAL VACCINE 0-64 YRS (2 - PCV)] [facility] Future Scheduled Test 2013-12-15 00:00:00 Pneumococcal Vaccine: 0-64 Years (2 - PCV) [code = Pneumococcal Vaccine: 0-64 Years (2 - PCV)] [facility] Future Scheduled Test 2013-12-15 00:00:00 Pneumococcal Vaccine: 0-64 Years (2 - PCV) [code = Pneumococcal Vaccine: 0-64 Years (2 - PCV)] [facility] Future Scheduled Test 2013-12-15 00:00:00 Pneumococcal Vaccine: 0-64 Years (2 - PCV) [code = Pneumococcal Vaccine: 0-64 Years (2 - PCV)] [facility] Future Scheduled Test 2013-12-15 00:00:00 Pneumococcal Vaccine: 0-64 Years (2 - PCV) [code = Pneumococcal Vaccine: 0-64 Years (2 - PCV)] [facility] Future Scheduled Test 2013-12-15 00:00:00 Pneumococcal Vaccine: 0-64 Years (2 - PCV) [code = Pneumococcal Vaccine: 0-64 Years (2 - PCV)] [facility] Future Scheduled Test 2013-12-15 00:00:00 Pneumococcal Vaccine: 0-64 Years (2 - PCV) [code = Pneumococcal Vaccine: 0-64 Years (2 - PCV)] [facility] Future Scheduled Test 2013-12-15 00:00:00 Pneumococcal Vaccine: 0-64 Years (2 - PCV) [code = Pneumococcal Vaccine: 0-64 Years (2 - PCV)] [facility] Future Scheduled Test 2013-12-15 00:00:00 Pneumococcal Vaccine: 0-64 Years (2 - PCV) [code = Pneumococcal Vaccine: 0-64 Years (2 - PCV)] [facility] Future Scheduled Test 2013-12-15 00:00:00 Pneumococcal Vaccine: 0-64 Years (2 - PCV) [code = Pneumococcal Vaccine: 0-64 Years (2 - PCV)] [facility] Future Scheduled Test 2013-12-15 00:00:00 Pneumococcal Vaccine: 0-64 Years (2 - PCV) [code = Pneumococcal Vaccine: 0-64 Years (2 - PCV)] [facility] Future Scheduled Test 2013-12-15 00:00:00 Pneumococcal Vaccine: 0-64 Years (2 - PCV) [code = Pneumococcal Vaccine: 0-64 Years (2 - PCV)] [facility] Future Scheduled Test 2013-12-15 00:00:00 Pneumococcal Vaccine: 0-64 Years (2 - PCV) [code = Pneumococcal Vaccine: 0-64 Years (2 - PCV)] [facility] Future Scheduled Test 2013-12-15 00:00:00 Pneumococcal Vaccine: 0-64 Years (2 - PCV) [code = Pneumococcal Vaccine: 0-64 Years (2 - PCV)] [facility] Future Scheduled Test 2013-12-15 00:00:00 Pneumococcal Vaccine: 0-64 Years (2 - PCV) [code = Pneumococcal Vaccine: 0-64 Years (2 - PCV)] [facility] Future Scheduled Test 2013-12-15 00:00:00 Pneumococcal Vaccine: 0-64 Years (2 - PCV) [code = Pneumococcal Vaccine: 0-64 Years (2 - PCV)] [facility] Future Scheduled Test 2013-12-15 00:00:00 Pneumococcal Vaccine: 0-64 Years (2 - PCV) [code = Pneumococcal Vaccine: 0-64 Years (2 - PCV)] [facility] Future Scheduled Test 2013-12-15 00:00:00 Pneumococcal Vaccine: 0-64 Years (2 - PCV) [code = Pneumococcal Vaccine: 0-64 Years (2 - PCV)] [facility] Future Scheduled Test 2013-12-15 00:00:00 Pneumococcal Vaccine: 0-64 Years (2 - PCV) [code = Pneumococcal Vaccine: 0-64 Years (2 - PCV)] [facility] Future Scheduled Test 2013-12-15 00:00:00 Pneumococcal Vaccine: 0-64 Years (2 - PCV) [code = Pneumococcal Vaccine: 0-64 Years (2 - PCV)] [facility] Future Scheduled Test 2013-12-15 00:00:00 Pneumococcal Vaccine: 0-64 Years (2 - PCV) [code = Pneumococcal Vaccine: 0-64 Years (2 - PCV)] [facility] Future Scheduled Test 2013-12-15 00:00:00 Pneumococcal Vaccine: 0-64 Years (2 of 2 - PCV) [code = Pneumococcal Vaccine: 0-64 Years (2 of 2 - PCV)] [facility] Future Scheduled Test 2013-12-15 00:00:00 Pneumococcal Vaccine: 0-64 Years (2 of 2 - PCV) [code = Pneumococcal Vaccine: 0-64 Years (2 of 2 - PCV)] [facility] Future Scheduled Test 2013-12-15 00:00:00 Pneumococcal Vaccine: 0-64 Years (2 of 2 - PCV) [code = Pneumococcal Vaccine: 0-64 Years (2 of 2 - PCV)] [facility] Future Scheduled Test 2013-12-15 00:00:00 Pneumococcal Vaccine: 0-64 Years (2 of 2 - PCV) [code = Pneumococcal Vaccine: 0-64 Years (2 of 2 - PCV)] [facility] Future Scheduled Test 2013-12-15 00:00:00 Pneumococcal Vaccine: 0-64 Years (2 of 2 - PCV) [code = Pneumococcal Vaccine: 0-64 Years (2 of 2 - PCV)] [facility] Future Scheduled Test 2013-12-15 00:00:00 Pneumococcal Vaccine: 0-64 Years (2 of 2 - PCV) [code = Pneumococcal Vaccine: 0-64 Years (2 of 2 - PCV)] [facility] Future Scheduled Test 2013-12-15 00:00:00 Pneumococcal Vaccine: 0-64 Years (2 of 2 - PCV) [code = Pneumococcal Vaccine: 0-64 Years (2 of 2 - PCV)] [facility] Future Scheduled Test 2013-12-15 00:00:00 Pneumococcal Vaccine: 0-64 Years (2 of 2 - PCV) [code = Pneumococcal Vaccine: 0-64 Years (2 of 2 - PCV)] [facility] Future Scheduled Test 2013-12-15 00:00:00 Pneumococcal Vaccine: 0-64 Years (2 - PCV) [code = Pneumococcal Vaccine: 0-64 Years (2 - PCV)] [facility] Future Scheduled Test 2013-12-15 00:00:00 Pneumococcal Vaccine: 0-64 Years (2 - PCV) [code = Pneumococcal Vaccine: 0-64 Years (2 - PCV)] [facility] Future Scheduled Test 2013-12-15 00:00:00 Pneumococcal Vaccine: 0-64 Years (2 - PCV) [code = Pneumococcal Vaccine: 0-64 Years (2 - PCV)] [facility] Future Scheduled Test 1993-01-14 00:00:00 Screening for malignant neoplasm of cervix (procedure) [code = [id number]] [facility] Future Scheduled Test 1993-01-14 00:00:00 Screening for malignant neoplasm of cervix (procedure) [code = 013961897] [facility] Future Scheduled Test 1993-01-14 00:00:00 Screening for malignant neoplasm of cervix (procedure) [code = 143554731] [facility] Future Scheduled Test 1993-01-14 00:00:00 Screening for malignant neoplasm of cervix (procedure) [code = 238872106] [facility] Future Scheduled Test 1993-01-14 00:00:00 Screening for malignant neoplasm of cervix (procedure) [code = 570406469] [facility] Future Scheduled Test 1993-01-14 00:00:00 Screening for malignant neoplasm of cervix (procedure) [code = 015198100] [facility] Future Scheduled Test 1993-01-14 00:00:00 Screening for malignant neoplasm of cervix (procedure) [code = 594273305] [facility] Future Scheduled Test 1993-01-14 00:00:00 Screening for malignant neoplasm of cervix (procedure) [code = 397547828] [facility] Future Scheduled Test 1993-01-14 00:00:00 Screening for malignant neoplasm of cervix (procedure) [code = 121921048] [facility] Future Scheduled Test 1993-01-14 00:00:00 Screening for malignant neoplasm of cervix (procedure) [code = 307717570] [facility] Future Scheduled Test 1993-01-14 00:00:00 Screening for malignant neoplasm of cervix (procedure) [code = 292598654] [facility] Future Scheduled Test 1993-01-14 00:00:00 Screening for malignant neoplasm of cervix (procedure) [code = 695643441] [facility] Future Scheduled Test 1993-01-14 00:00:00 Screening for malignant neoplasm of cervix (procedure) [code = 580135448] [facility] Future Scheduled Test 1993-01-14 00:00:00 Screening for malignant neoplasm of cervix (procedure) [code = 858956013] [facility] Future Scheduled Test 1993-01-14 00:00:00 Screening for malignant neoplasm of cervix (procedure) [code = 262776753] [facility] Future Scheduled Test 1993-01-14 00:00:00 Screening for malignant neoplasm of cervix (procedure) [code = [id number]] [facility] Future Scheduled Test 1993-01-14 00:00:00 Screening for malignant neoplasm of cervix (procedure) [code = [id number]] [facility] Future Scheduled Test 1993-01-14 00:00:00 Screening for malignant neoplasm of cervix (procedure) [code = [id number]] [facility] Future Scheduled Test 1993-01-14 00:00:00 Screening for malignant neoplasm of cervix (procedure) [code = [id number]] [facility] Future Scheduled Test 1993-01-14 00:00:00 Screening for malignant neoplasm of cervix (procedure) [code = [id number]] [facility] Future Scheduled Test 1993-01-14 00:00:00 Screening for malignant neoplasm of cervix (procedure) [code = [id number]] [facility] Future Scheduled Test 1993-01-14 00:00:00 Screening for malignant neoplasm of cervix (procedure) [code = [id number]] [facility] Future Scheduled Test 1993-01-14 00:00:00 Screening for malignant neoplasm of cervix (procedure) [code = [id number]] [facility] Future Scheduled Test 1993-01-14 00:00:00 Screening for malignant neoplasm of cervix (procedure) [code = [id number]] [facility] Future Scheduled Test 1993-01-14 00:00:00 Screening for malignant neoplasm of cervix (procedure) [code = [id number]] [facility] Future Scheduled Test 1993-01-14 00:00:00 Screening for malignant neoplasm of cervix (procedure) [code = [id number]] [facility] Future Scheduled Test 1993-01-14 00:00:00 Screening for malignant neoplasm of cervix (procedure) [code = [id number]] [facility] Future Scheduled Test 1993-01-14 00:00:00 Screening for malignant neoplasm of cervix (procedure) [code = [id number]] [facility] Future Scheduled Test 1993-01-14 00:00:00 Screening for malignant neoplasm of cervix (procedure) [code = [id number]] [facility] Future Scheduled Test 1993-01-14 00:00:00 Screening for malignant neoplasm of cervix (procedure) [code = 906564933] [facility] Future Scheduled Test 1993-01-14 00:00:00 Screening for malignant neoplasm of cervix (procedure) [code = [id number]] [facility] Future Scheduled Test 1993-01-14 00:00:00 Screening for malignant neoplasm of cervix (procedure) [code = [id number]] [facility] Future Scheduled Test 1993-01-14 00:00:00 Screening for malignant neoplasm of cervix (procedure) [code = 537456332] [facility] Future Scheduled Test 1993-01-14 00:00:00 Screening for malignant neoplasm of cervix (procedure) [code = 271335072] [facility] Future Scheduled Test 1993-01-14 00:00:00 Screening for malignant neoplasm of cervix (procedure) [code = [id number]] [facility] Future Scheduled Test 1993-01-14 00:00:00 Screening for malignant neoplasm of cervix (procedure) [code = [id number]] [facility] Future Scheduled Test 1993-01-14 00:00:00 Screening for malignant neoplasm of cervix (procedure) [code = 817377727] [facility] Future Scheduled Test 1993-01-14 00:00:00 Screening for malignant neoplasm of cervix (procedure) [code = [id number]] [facility] Future Scheduled Test 1993-01-14 00:00:00 Screening for malignant neoplasm of cervix (procedure) [code = 774763548] [facility] Future Scheduled Test 1993-01-14 00:00:00 Screening for malignant neoplasm of cervix (procedure) [code = 106227078] [facility] Future Scheduled Test 1993-01-14 00:00:00 Screening for malignant neoplasm of cervix (procedure) [code = [id number]] [facility] Future Scheduled Test 1993-01-14 00:00:00 Screening for malignant neoplasm of cervix (procedure) [code = [id number]] [facility] Future Scheduled Test 1993-01-14 00:00:00 Screening for malignant neoplasm of cervix (procedure) [code = [id number]] [facility] Future Scheduled Test 1993-01-14 00:00:00 Screening for malignant neoplasm of cervix (procedure) [code = [id number]] [facility] Future Scheduled Test 1993-01-14 00:00:00 Screening for malignant neoplasm of cervix (procedure) [code = 938653920] [facility] Future Scheduled Test 1993-01-14 00:00:00 Screening for malignant neoplasm of cervix (procedure) [code = [id number]] [facility] Future Scheduled Test 1993-01-14 00:00:00 Screening for malignant neoplasm of cervix (procedure) [code = 660779715] [facility] Future Scheduled Test 1993-01-14 00:00:00 Screening for malignant neoplasm of cervix (procedure) [code = [id number]] [facility] Future Scheduled Test 1993-01-14 00:00:00 Screening for malignant neoplasm of cervix (procedure) [code = [id number]] [facility] Future Scheduled Test 1993-01-14 00:00:00 Screening for malignant neoplasm of cervix (procedure) [code = [id number]] [facility] Future Scheduled Test 1993-01-14 00:00:00 Screening for malignant neoplasm of cervix (procedure) [code = 979083747] [facility] Future Scheduled Test 1993-01-14 00:00:00 Screening for malignant neoplasm of cervix (procedure) [code = [id number]] [facility] Future Scheduled Test 1993-01-14 00:00:00 Screening for malignant neoplasm of cervix (procedure) [code = [id number]] [facility] Future Scheduled Test 1993-01-14 00:00:00 Screening for malignant neoplasm of cervix (procedure) [code = [id number]] [facility] Future Scheduled Test 1993-01-14 00:00:00 Screening for malignant neoplasm of cervix (procedure) [code = [id number]] [facility] Future Scheduled Test 1993-01-14 00:00:00 Screening for malignant neoplasm of cervix (procedure) [code = [id number]] [facility] Future Scheduled Test 1993-01-14 00:00:00 Screening for malignant neoplasm of cervix (procedure) [code = [id number]] [facility] Future Scheduled Test 1993-01-14 00:00:00 Screening for malignant neoplasm of cervix (procedure) [code = 807705683] [facility] Future Scheduled Test 1993-01-14 00:00:00 Screening for malignant neoplasm of cervix (procedure) [code = [id number]] [facility] Future Scheduled Test 1991-01-14 00:00:00 DTAP/TDAP/TD VACCINES (1 - Tdap) [code = DTAP/TDAP/TD VACCINES (1 - Tdap)] [facility] Future Scheduled Test 1991-01-14 00:00:00 DTAP/TDAP/TD VACCINES (1 - Tdap) [code = DTAP/TDAP/TD VACCINES (1 - Tdap)] [facility] Future Scheduled Test 1991-01-14 00:00:00 DTAP/TDAP/TD VACCINES (1 - Tdap) [code = DTAP/TDAP/TD VACCINES (1 - Tdap)] [facility] Future Scheduled Test 1991-01-14 00:00:00 DTAP/TDAP/TD VACCINES (1 - Tdap) [code = DTAP/TDAP/TD VACCINES (1 - Tdap)] [facility] Future Scheduled Test 1991-01-14 00:00:00 DTAP/TDAP/TD VACCINES (1 - Tdap) [code = DTAP/TDAP/TD VACCINES (1 - Tdap)] [facility] Future Scheduled Test 1991-01-14 00:00:00 DTAP/TDAP/TD VACCINES (1 - Tdap) [code = DTAP/TDAP/TD VACCINES (1 - Tdap)] [facility] Future Scheduled Test 1991-01-14 00:00:00 DTAP/TDAP/TD VACCINES (1 - Tdap) [code = DTAP/TDAP/TD VACCINES (1 - Tdap)] [facility] Future Scheduled Test 1991-01-14 00:00:00 DTAP/TDAP/TD VACCINES (1 - Tdap) [code = DTAP/TDAP/TD VACCINES (1 - Tdap)] [facility] Future Scheduled Test 1991-01-14 00:00:00 DTAP/TDAP/TD VACCINES (1 - Tdap) [code = DTAP/TDAP/TD VACCINES (1 - Tdap)] [facility] Future Scheduled Test 1991-01-14 00:00:00 DTAP/TDAP/TD VACCINES (1 - Tdap) [code = DTAP/TDAP/TD VACCINES (1 - Tdap)] [facility] Future Scheduled Test 1991-01-14 00:00:00 DTAP/TDAP/TD VACCINES (1 - Tdap) [code = DTAP/TDAP/TD VACCINES (1 - Tdap)] [facility] Future Scheduled Test 1991-01-14 00:00:00 DTAP/TDAP/TD VACCINES (1 - Tdap) [code = DTAP/TDAP/TD VACCINES (1 - Tdap)] [facility] Future Scheduled Test 1991-01-14 00:00:00 DTAP/TDAP/TD VACCINES (1 - Tdap) [code = DTAP/TDAP/TD VACCINES (1 - Tdap)] [facility] Future Scheduled Test 1991-01-14 00:00:00 DTAP/TDAP/TD VACCINES (1 - Tdap) [code = DTAP/TDAP/TD VACCINES (1 - Tdap)] [facility] Future Scheduled Test 1991-01-14 00:00:00 DTAP/TDAP/TD VACCINES (1 - Tdap) [code = DTAP/TDAP/TD VACCINES (1 - Tdap)] [facility] Future Scheduled Test 1991-01-14 00:00:00 DTAP/TDAP/TD VACCINES (1 - Tdap) [code = DTAP/TDAP/TD VACCINES (1 - Tdap)] [facility] Future Scheduled Test 1991-01-14 00:00:00 DTAP/TDAP/TD VACCINES (1 - Tdap) [code = DTAP/TDAP/TD VACCINES (1 - Tdap)] [facility] Future Scheduled Test 1991-01-14 00:00:00 DTAP/TDAP/TD VACCINES (1 - Tdap) [code = DTAP/TDAP/TD VACCINES (1 - Tdap)] [facility] Future Scheduled Test 1991-01-14 00:00:00 DTAP/TDAP/TD VACCINES (1 - Tdap) [code = DTAP/TDAP/TD VACCINES (1 - Tdap)] [facility] Future Scheduled Test 1991-01-14 00:00:00 DTAP/TDAP/TD VACCINES (1 - Tdap) [code = DTAP/TDAP/TD VACCINES (1 - Tdap)] [facility] Future Scheduled Test 1991-01-14 00:00:00 DTAP/TDAP/TD VACCINES (1 - Tdap) [code = DTAP/TDAP/TD VACCINES (1 - Tdap)] [facility] Future Scheduled Test 1991-01-14 00:00:00 DTAP/TDAP/TD VACCINES (1 - Tdap) [code = DTAP/TDAP/TD VACCINES (1 - Tdap)] [facility] Future Scheduled Test 1991-01-14 00:00:00 DTAP/TDAP/TD VACCINES (1 - Tdap) [code = DTAP/TDAP/TD VACCINES (1 - Tdap)] [facility] Future Scheduled Test 1991-01-14 00:00:00 DTAP/TDAP/TD VACCINES (1 - Tdap) [code = DTAP/TDAP/TD VACCINES (1 - Tdap)] [facility] Future Scheduled Test 1991-01-14 00:00:00 DTAP/TDAP/TD VACCINES (1 - Tdap) [code = DTAP/TDAP/TD VACCINES (1 - Tdap)] [facility] Future Scheduled Test 1991-01-14 00:00:00 DTAP/TDAP/TD VACCINES (1 - Tdap) [code = DTAP/TDAP/TD VACCINES (1 - Tdap)] [facility] Future Scheduled Test 1991-01-14 00:00:00 DTAP/TDAP/TD VACCINES (1 - Tdap) [code = DTAP/TDAP/TD VACCINES (1 - Tdap)] [facility] Future Scheduled Test 1991-01-14 00:00:00 DTAP/TDAP/TD VACCINES (1 - Tdap) [code = DTAP/TDAP/TD VACCINES (1 - Tdap)] [facility] Future Scheduled Test 1991-01-14 00:00:00 DTAP/TDAP/TD VACCINES (1 - Tdap) [code = DTAP/TDAP/TD VACCINES (1 - Tdap)] [facility] Future Scheduled Test 1991-01-14 00:00:00 DTAP/TDAP/TD VACCINES (1 - Tdap) [code = DTAP/TDAP/TD VACCINES (1 - Tdap)] [facility] Future Scheduled Test 1991-01-14 00:00:00 DTAP/TDAP/TD VACCINES (1 - Tdap) [code = DTAP/TDAP/TD VACCINES (1 - Tdap)] [facility] Future Scheduled Test 1991-01-14 00:00:00 DTAP/TDAP/TD VACCINES (1 - Tdap) [code = DTAP/TDAP/TD VACCINES (1 - Tdap)] [facility] Future Scheduled Test 1991-01-14 00:00:00 DTAP/TDAP/TD VACCINES (1 - Tdap) [code = DTAP/TDAP/TD VACCINES (1 - Tdap)] [facility] Future Scheduled Test 1991-01-14 00:00:00 DTAP/TDAP/TD VACCINES (1 - Tdap) [code = DTAP/TDAP/TD VACCINES (1 - Tdap)] [facility] Future Scheduled Test 1991-01-14 00:00:00 DTAP/TDAP/TD VACCINES (1 - Tdap) [code = DTAP/TDAP/TD VACCINES (1 - Tdap)] [facility] Future Scheduled Test 1991-01-14 00:00:00 DTAP/TDAP/TD VACCINES (1 - Tdap) [code = DTAP/TDAP/TD VACCINES (1 - Tdap)] [facility] Future Scheduled Test 1991-01-14 00:00:00 DTAP/TDAP/TD VACCINES (1 - Tdap) [code = DTAP/TDAP/TD VACCINES (1 - Tdap)] [facility] Future Scheduled Test 1991-01-14 00:00:00 DTAP/TDAP/TD VACCINES (1 - Tdap) [code = DTAP/TDAP/TD VACCINES (1 - Tdap)] [facility] Future Scheduled Test 1991-01-14 00:00:00 DTAP/TDAP/TD VACCINES (1 - Tdap) [code = DTAP/TDAP/TD VACCINES (1 - Tdap)] [facility] Future Scheduled Test 1991-01-14 00:00:00 DTAP/TDAP/TD VACCINES (1 - Tdap) [code = DTAP/TDAP/TD VACCINES (1 - Tdap)] [facility] Future Scheduled Test 1991-01-14 00:00:00 DTAP/TDAP/TD VACCINES (1 - Tdap) [code = DTAP/TDAP/TD VACCINES (1 - Tdap)] [facility] Future Scheduled Test 1991-01-14 00:00:00 DTAP/TDAP/TD VACCINES (1 - Tdap) [code = DTAP/TDAP/TD VACCINES (1 - Tdap)] [facility] Future Scheduled Test 1991-01-14 00:00:00 DTAP/TDAP/TD VACCINES (1 - Tdap) [code = DTAP/TDAP/TD VACCINES (1 - Tdap)] [facility] Future Scheduled Test 1991-01-14 00:00:00 DTAP/TDAP/TD VACCINES (1 - Tdap) [code = DTAP/TDAP/TD VACCINES (1 - Tdap)] [facility] Future Scheduled Test 1991-01-14 00:00:00 DTAP/TDAP/TD VACCINES (1 - Tdap) [code = DTAP/TDAP/TD VACCINES (1 - Tdap)] [facility] Future Scheduled Test 1991-01-14 00:00:00 DTAP/TDAP/TD VACCINES (1 - Tdap) [code = DTAP/TDAP/TD VACCINES (1 - Tdap)] [facility] Future Scheduled Test 1991-01-14 00:00:00 DTAP/TDAP/TD VACCINES (1 - Tdap) [code = DTAP/TDAP/TD VACCINES (1 - Tdap)] [facility] Future Scheduled Test 1991-01-14 00:00:00 DTAP/TDAP/TD VACCINES (1 - Tdap) [code = DTAP/TDAP/TD VACCINES (1 - Tdap)] [facility] Future Scheduled Test 1991-01-14 00:00:00 DTAP/TDAP/TD VACCINES (1 - Tdap) [code = DTAP/TDAP/TD VACCINES (1 - Tdap)] [facility] Future Scheduled Test 1991-01-14 00:00:00 DTAP/TDAP/TD VACCINES (1 - Tdap) [code = DTAP/TDAP/TD VACCINES (1 - Tdap)] [facility] Future Scheduled Test 1991-01-14 00:00:00 DTAP/TDAP/TD VACCINES (1 - Tdap) [code = DTAP/TDAP/TD VACCINES (1 - Tdap)] [facility] Future Scheduled Test 1991-01-14 00:00:00 DTAP/TDAP/TD VACCINES (1 - Tdap) [code = DTAP/TDAP/TD VACCINES (1 - Tdap)] [facility] Future Scheduled Test 1991-01-14 00:00:00 DTAP/TDAP/TD VACCINES (1 - Tdap) [code = DTAP/TDAP/TD VACCINES (1 - Tdap)] [facility] Future Scheduled Test 1991-01-14 00:00:00 DTAP/TDAP/TD VACCINES (1 - Tdap) [code = DTAP/TDAP/TD VACCINES (1 - Tdap)] [facility] Future Scheduled Test 1991-01-14 00:00:00 DTAP/TDAP/TD VACCINES (1 - Tdap) [code = DTAP/TDAP/TD VACCINES (1 - Tdap)] [facility] Future Scheduled Test 1991-01-14 00:00:00 DTAP/TDAP/TD VACCINES (1 - Tdap) [code = DTAP/TDAP/TD VACCINES (1 - Tdap)] [facility] Future Scheduled Test 1991-01-14 00:00:00 DTAP/TDAP/TD VACCINES (1 - Tdap) [code = DTAP/TDAP/TD VACCINES (1 - Tdap)] [facility] Future Scheduled Test 1991-01-14 00:00:00 DTAP/TDAP/TD VACCINES (1 - Tdap) [code = DTAP/TDAP/TD VACCINES (1 - Tdap)] [facility] Future Scheduled Test 1991-01-14 00:00:00 DTAP/TDAP/TD VACCINES (1 - Tdap) [code = DTAP/TDAP/TD VACCINES (1 - Tdap)] [facility] Future Scheduled Test 1990-01-14 00:00:00 HEPATITIS C SCREENING [code = HEPATITIS C SCREENING] [facility] Future Scheduled Test 1990-01-14 00:00:00 HEPATITIS C SCREENING [code = HEPATITIS C SCREENING] [facility] Future Scheduled Test 1990-01-14 00:00:00 HEPATITIS C SCREENING [code = HEPATITIS C SCREENING] [facility] Future Scheduled Test 1990-01-14 00:00:00 HEPATITIS C SCREENING [code = HEPATITIS C SCREENING] [facility] Future Scheduled Test 1990-01-14 00:00:00 HEPATITIS C SCREENING [code = HEPATITIS C SCREENING] [facility] Future Scheduled Test 1990-01-14 00:00:00 HEPATITIS C SCREENING [code = HEPATITIS C SCREENING] [facility] Future Scheduled Test 1990-01-14 00:00:00 HEPATITIS C SCREENING [code = HEPATITIS C SCREENING] [facility] Future Scheduled Test 1990-01-14 00:00:00 HEPATITIS C SCREENING [code = HEPATITIS C SCREENING] [facility] Future Scheduled Test 1990-01-14 00:00:00 HEPATITIS C SCREENING [code = HEPATITIS C SCREENING] [facility] Future Scheduled Test 1990-01-14 00:00:00 HEPATITIS C SCREENING [code = HEPATITIS C SCREENING] [facility] Future Scheduled Test 1990-01-14 00:00:00 HEPATITIS C SCREENING [code = HEPATITIS C SCREENING] [facility] Future Scheduled Test 1990-01-14 00:00:00 HEPATITIS C SCREENING [code = HEPATITIS C SCREENING] [facility] Future Scheduled Test 1990-01-14 00:00:00 HEPATITIS C SCREENING [code = HEPATITIS C SCREENING] [facility] Future Scheduled Test 1990-01-14 00:00:00 HEPATITIS C SCREENING [code = HEPATITIS C SCREENING] [facility] Future Scheduled Test 1990-01-14 00:00:00 HEPATITIS C SCREENING [code = HEPATITIS C SCREENING] [facility] Future Scheduled Test 1990-01-14 00:00:00 HEPATITIS C SCREENING [code = HEPATITIS C SCREENING] [facility] Future Scheduled Test 1990-01-14 00:00:00 HEPATITIS C SCREENING [code = HEPATITIS C SCREENING] [facility] Future Scheduled Test 1990-01-14 00:00:00 HEPATITIS C SCREENING [code = HEPATITIS C SCREENING] [facility] Future Scheduled Test 1990-01-14 00:00:00 HEPATITIS C SCREENING [code = HEPATITIS C SCREENING] [facility] Future Scheduled Test 1990-01-14 00:00:00 HEPATITIS C SCREENING [code = HEPATITIS C SCREENING] [facility] Future Scheduled Test 1990-01-14 00:00:00 HEPATITIS C SCREENING [code = HEPATITIS C SCREENING] [facility] Future Scheduled Test 1990-01-14 00:00:00 HEPATITIS C SCREENING [code = HEPATITIS C SCREENING] [facility] Future Scheduled Test 1990-01-14 00:00:00 HEPATITIS C SCREENING [code = HEPATITIS C SCREENING] [facility] Future Scheduled Test 1990-01-14 00:00:00 HEPATITIS C SCREENING [code = HEPATITIS C SCREENING] [facility] Future Scheduled Test 1990-01-14 00:00:00 HEPATITIS C SCREENING [code = HEPATITIS C SCREENING] [facility] Future Scheduled Test 1990-01-14 00:00:00 HEPATITIS C SCREENING [code = HEPATITIS C SCREENING] [facility] Future Scheduled Test 1990-01-14 00:00:00 HEPATITIS C SCREENING [code = HEPATITIS C SCREENING] [facility] Future Scheduled Test 1990-01-14 00:00:00 HEPATITIS C SCREENING [code = HEPATITIS C SCREENING] [facility] Future Scheduled Test 1990-01-14 00:00:00 HEPATITIS C SCREENING [code = HEPATITIS C SCREENING] [facility] Future Scheduled Test 1990-01-14 00:00:00 HEPATITIS C SCREENING [code = HEPATITIS C SCREENING] [facility] Future Scheduled Test 1990-01-14 00:00:00 HEPATITIS C SCREENING [code = HEPATITIS C SCREENING] [facility] Future Scheduled Test 1990-01-14 00:00:00 HEPATITIS C SCREENING [code = HEPATITIS C SCREENING] [facility] Future Scheduled Test 1990-01-14 00:00:00 HEPATITIS C SCREENING [code = HEPATITIS C SCREENING] [facility] Future Scheduled Test 1990-01-14 00:00:00 HEPATITIS C SCREENING [code = HEPATITIS C SCREENING] [facility] Future Scheduled Test 1990-01-14 00:00:00 HEPATITIS C SCREENING [code = HEPATITIS C SCREENING] [facility] Future Scheduled Test 1990-01-14 00:00:00 HEPATITIS C SCREENING [code = HEPATITIS C SCREENING] [facility] Future Scheduled Test 1990-01-14 00:00:00 HEPATITIS C SCREENING [code = HEPATITIS C SCREENING] [facility] Future Scheduled Test 1990-01-14 00:00:00 HEPATITIS C SCREENING [code = HEPATITIS C SCREENING] [facility] Future Scheduled Test 1990-01-14 00:00:00 HEPATITIS C SCREENING [code = HEPATITIS C SCREENING] [facility] Future Scheduled Test 1990-01-14 00:00:00 HEPATITIS C SCREENING [code = HEPATITIS C SCREENING] [facility] Future Scheduled Test 1990-01-14 00:00:00 HEPATITIS C SCREENING [code = HEPATITIS C SCREENING] [facility] Future Scheduled Test 1990-01-14 00:00:00 HEPATITIS C SCREENING [code = HEPATITIS C SCREENING] [facility] Future Scheduled Test 1990-01-14 00:00:00 HEPATITIS C SCREENING [code = HEPATITIS C SCREENING] [facility] Future Scheduled Test 1990-01-14 00:00:00 HEPATITIS C SCREENING [code = HEPATITIS C SCREENING] [facility] Future Scheduled Test 1990-01-14 00:00:00 HEPATITIS C SCREENING [code = HEPATITIS C SCREENING] [facility] Future Scheduled Test 1990-01-14 00:00:00 HEPATITIS C SCREENING [code = HEPATITIS C SCREENING] [facility] Future Scheduled Test 1990-01-14 00:00:00 HEPATITIS C SCREENING [code = HEPATITIS C SCREENING] [facility] Future Scheduled Test 1990-01-14 00:00:00 HEPATITIS C SCREENING [code = HEPATITIS C SCREENING] [facility] Future Scheduled Test 1990-01-14 00:00:00 HEPATITIS C SCREENING [code = HEPATITIS C SCREENING] [facility] Future Scheduled Test 1990-01-14 00:00:00 HEPATITIS C SCREENING [code = HEPATITIS C SCREENING] [facility] Future Scheduled Test 1990-01-14 00:00:00 HEPATITIS C SCREENING [code = HEPATITIS C SCREENING] [facility] Future Scheduled Test 1990-01-14 00:00:00 HEPATITIS C SCREENING [code = HEPATITIS C SCREENING] [facility] Future Scheduled Test 1990-01-14 00:00:00 HEPATITIS C SCREENING [code = HEPATITIS C SCREENING] [facility] Future Scheduled Test 1990-01-14 00:00:00 HEPATITIS C SCREENING [code = HEPATITIS C SCREENING] [facility] Future Scheduled Test 1990-01-14 00:00:00 HEPATITIS C SCREENING [code = HEPATITIS C SCREENING] [facility] Future Scheduled Test 1990-01-14 00:00:00 HEPATITIS C SCREENING [code = HEPATITIS C SCREENING] [facility] Future Scheduled Test 1990-01-14 00:00:00 HEPATITIS C SCREENING [code = HEPATITIS C SCREENING] [facility] Future Scheduled Test 1990-01-14 00:00:00 HEPATITIS C SCREENING [code = HEPATITIS C SCREENING] [facility] Future Scheduled Test 1990-01-14 00:00:00 HEPATITIS C SCREENING [code = HEPATITIS C SCREENING] [facility] Future Scheduled Test 1987-01-14 00:00:00 Human immunodeficiency virus screening (procedure) [code = [id number]] [facility] Future Scheduled Test 1987-01-14 00:00:00 Human immunodeficiency virus screening (procedure) [code = 641263160] [facility] Future Scheduled Test 1984 00:00:00 Tobacco Cessation Counseling and Screening (12+) [code = Tobacco Cessation Counseling and Screening (12+)] [facility] Future Scheduled Test 1984 00:00:00 Tobacco Cessation Counseling and Screening (12+) [code = Tobacco Cessation Counseling and Screening (12+)] [facility] Scheduled Test 1984 00:00:00 Tobacco Cessation Counseling and Screening (12+) [code = Tobacco Cessation Counseling and Screening (12+)] [facility] Scheduled Test 1984 00:00:00 Tobacco Cessation Counseling and Screening (12+) [code = Tobacco Cessation Counseling and Screening (12+)] [facility] Scheduled Test 1984 00:00:00 Tobacco Cessation Counseling and Screening (12+) [code = Tobacco Cessation Counseling and Screening (12+)] [facility] Scheduled Test 1984 00:00:00 Tobacco Cessation Counseling and Screening (12+) [code = Tobacco Cessation Counseling and Screening (12+)] [facility] Scheduled Test 1984 00:00:00 Tobacco Cessation Counseling and Screening (12+) [code = Tobacco Cessation Counseling and Screening (12+)] [facility] Future Scheduled Test 1984 00:00:00 Tobacco Cessation Counseling and Screening (12+) [code = Tobacco Cessation Counseling and Screening (12+)] [facility] Scheduled Test 1984 00:00:00 Tobacco Cessation Counseling and Screening (12+) [code = Tobacco Cessation Counseling and Screening (12+)] [facility] Scheduled Test 1984 00:00:00 Tobacco Cessation Counseling and Screening (12+) [code = Tobacco Cessation Counseling and Screening (12+)] [facility] Future Scheduled Test 1984 00:00:00 Tobacco Cessation Counseling and Screening (12+) [code = Tobacco Cessation Counseling and Screening (12+)] [facility] Future Scheduled Test 1984 00:00:00 Tobacco Cessation Counseling and Screening (12+) [code = Tobacco Cessation Counseling and Screening (12+)] [facility] Future Scheduled Test 1984 00:00:00 Tobacco Cessation Counseling and Screening (12+) [code = Tobacco Cessation Counseling and Screening (12+)] [facility] Future Scheduled Test 1984 00:00:00 Tobacco Cessation Counseling and Screening (12+) [code = Tobacco Cessation Counseling and Screening (12+)] [facility] Future Scheduled Test 1984 00:00:00 Tobacco Cessation Counseling and Screening (12+) [code = Tobacco Cessation Counseling and Screening (12+)] [facility] Scheduled Test 1984 00:00:00 Tobacco Cessation Counseling and Screening (12+) [code = Tobacco Cessation Counseling and Screening (12+)] [facility] Future Scheduled Test 1984 00:00:00 Tobacco Cessation Counseling and Screening (12+) [code = Tobacco Cessation Counseling and Screening (12+)] [facility] Future Scheduled Test 1984 00:00:00 Tobacco Cessation Counseling and Screening (12+) [code = Tobacco Cessation Counseling and Screening (12+)] [facility] Future Scheduled Test 1984 00:00:00 Tobacco Cessation Counseling and Screening (12+) [code = Tobacco Cessation Counseling and Screening (12+)] [facility] Future Scheduled Test 1984 00:00:00 Tobacco Cessation Counseling and Screening (12+) [code = Tobacco Cessation Counseling and Screening (12+)] [facility] Future Scheduled Test 1984 00:00:00 Tobacco Cessation Counseling and Screening (12+) [code = Tobacco Cessation Counseling and Screening (12+)] [facility] Future Scheduled Test 1984 00:00:00 Tobacco Cessation Counseling and Screening (12+) [code = Tobacco Cessation Counseling and Screening (12+)] [facility] Future Scheduled Test 1984 00:00:00 Tobacco Cessation Counseling and Screening (12+) [code = Tobacco Cessation Counseling and Screening (12+)] [facility] Future Scheduled Test 1972 00:00:00 Screening for malignant neoplasm of breast (procedure) [code = [id number]] [facility] Future Scheduled Test 1972 00:00:00 CT Colonography (combo) [code = CT Colonography (combo)] [facility] Future Scheduled Test 1972 00:00:00 Screening for malignant neoplasm of colon (procedure) [code = 981178449] [facility] Future Scheduled Test 1972 00:00:00 Screening for malignant neoplasm of colon (procedure) [code = 580946369] [facility] Future Scheduled Test 1972 00:00:00 Screening for malignant neoplasm of colon (procedure) [code = 846590403] [facility] Future Scheduled Test 1972 00:00:00 Screening for malignant neoplasm of colon (procedure) [code = 160358717] [facility] Future Scheduled Test 1972 00:00:00 Sigmoidoscopy [code = Sigmoidoscopy] [facility] Future Scheduled Test 1972 00:00:00 Screening for malignant neoplasm of breast (procedure) [code = 955373867] [facility] Future Scheduled Test 1972 00:00:00 CT Colonography (combo) [code = CT Colonography (combo)] [facility] Future Scheduled Test 1972 00:00:00 Screening for malignant neoplasm of colon (procedure) [code = 310663147] [facility] Future Scheduled Test 1972 00:00:00 Screening for malignant neoplasm of colon (procedure) [code = 548305166] [facility] Future Scheduled Test 1972 00:00:00 Screening for malignant neoplasm of colon (procedure) [code = 276127733] [facility] Future Scheduled Test 1972 00:00:00 Screening for malignant neoplasm of colon (procedure) [code = 909458331] [facility] Future Scheduled Test 1972 00:00:00 Sigmoidoscopy [code = Sigmoidoscopy] [facility] Future Scheduled Test 1972 00:00:00 Screening for malignant neoplasm of breast (procedure) [code = 684699050] [facility] Future Scheduled Test 1972 00:00:00 CT Colonography (combo) [code = CT Colonography (combo)] [facility] Future Scheduled Test 1972 00:00:00 Screening for malignant neoplasm of colon (procedure) [code = 116187859] [facility] Future Scheduled Test 1972 00:00:00 Screening for malignant neoplasm of colon (procedure) [code = 471958396] [facility] Future Scheduled Test 1972 00:00:00 Screening for malignant neoplasm of colon (procedure) [code = 479023820] [facility] Future Scheduled Test 1972 00:00:00 Screening for malignant neoplasm of colon (procedure) [code = 832516314] [facility] Future Scheduled Test 1972 00:00:00 Sigmoidoscopy [code = Sigmoidoscopy] [facility] Future Scheduled Test 1972 00:00:00 Screening for malignant neoplasm of breast (procedure) [code = 665444136] [facility] Future Scheduled Test 1972 00:00:00 CT Colonography (combo) [code = CT Colonography (combo)] [facility] Future Scheduled Test 1972 00:00:00 Screening for malignant neoplasm of colon (procedure) [code = 199457602] [facility] Future Scheduled Test 1972 00:00:00 Screening for malignant neoplasm of colon (procedure) [code = 294548007] [facility] Future Scheduled Test 1972 00:00:00 Screening for malignant neoplasm of colon (procedure) [code = 980606413] [facility] Future Scheduled Test 1972 00:00:00 Screening for malignant neoplasm of colon (procedure) [code = 768547800] [facility] Future Scheduled Test 1972 00:00:00 Sigmoidoscopy [code = Sigmoidoscopy] [facility] Future Scheduled Test 1972 00:00:00 Screening for malignant neoplasm of breast (procedure) [code = 122314003] [facility] Future Scheduled Test 1972 00:00:00 CT Colonography (combo) [code = CT Colonography (combo)] [facility] Future Scheduled Test 1972 00:00:00 Screening for malignant neoplasm of colon (procedure) [code = 569783412] [facility] Future Scheduled Test 1972 00:00:00 Screening for malignant neoplasm of colon (procedure) [code = 094063642] [facility] Future Scheduled Test 1972 00:00:00 Screening for malignant neoplasm of colon (procedure) [code = 409398517] [facility] Future Scheduled Test 1972 00:00:00 Screening for malignant neoplasm of colon (procedure) [code = 111428227] [facility] Future Scheduled Test 1972 00:00:00 Sigmoidoscopy [code = Sigmoidoscopy] [facility] Future Scheduled Test 1972 00:00:00 Screening for malignant neoplasm of breast (procedure) [code = 381597974] [facility] Future Scheduled Test 1972 00:00:00 CT Colonography (combo) [code = CT Colonography (combo)] [facility] Future Scheduled Test 1972 00:00:00 Screening for malignant neoplasm of colon (procedure) [code = 077723679] [facility] Future Scheduled Test 1972 00:00:00 Screening for malignant neoplasm of colon (procedure) [code = 827679326] [facility] Future Scheduled Test 1972 00:00:00 Screening for malignant neoplasm of colon (procedure) [code = 917913925] [facility] Future Scheduled Test 1972 00:00:00 Screening for malignant neoplasm of colon (procedure) [code = 086202549] [facility] Future Scheduled Test 1972 00:00:00 Sigmoidoscopy [code = Sigmoidoscopy] [facility] Future Scheduled Test 1972 00:00:00 Screening for malignant neoplasm of breast (procedure) [code = 400012413] [facility] Future Scheduled Test 1972 00:00:00 CT Colonography (combo) [code = CT Colonography (combo)] [facility] Future Scheduled Test 1972 00:00:00 Screening for malignant neoplasm of colon (procedure) [code = 869799843] [facility] Future Scheduled Test 1972 00:00:00 Screening for malignant neoplasm of colon (procedure) [code = 365748220] [facility] Future Scheduled Test 1972 00:00:00 Screening for malignant neoplasm of colon (procedure) [code = 889984922] [facility] Future Scheduled Test 1972 00:00:00 Screening for malignant neoplasm of colon (procedure) [code = 845476801] [facility] Future Scheduled Test 1972 00:00:00 Sigmoidoscopy [code = Sigmoidoscopy] [facility] Future Scheduled Test 1972 00:00:00 Screening for malignant neoplasm of breast (procedure) [code = 327566853] [facility] Future Scheduled Test 1972 00:00:00 CT Colonography (combo) [code = CT Colonography (combo)] [facility] Future Scheduled Test 1972 00:00:00 Screening for malignant neoplasm of colon (procedure) [code = 753273208] [facility] Future Scheduled Test 1972 00:00:00 Screening for malignant neoplasm of colon (procedure) [code = 770064327] [facility] Future Scheduled Test 1972 00:00:00 Screening for malignant neoplasm of colon (procedure) [code = 952725820] [facility] Future Scheduled Test 1972 00:00:00 Screening for malignant neoplasm of colon (procedure) [code = 005035575] [facility] Future Scheduled Test 1972 00:00:00 Sigmoidoscopy [code = Sigmoidoscopy] [facility] Future Scheduled Test 1972 00:00:00 Screening for malignant neoplasm of breast (procedure) [code = 269769267] [facility] Future Scheduled Test 1972 00:00:00 CT Colonography (combo) [code = CT Colonography (combo)] [facility] Future Scheduled Test 1972 00:00:00 Screening for malignant neoplasm of colon (procedure) [code = 991074211] [facility] Future Scheduled Test 1972 00:00:00 Screening for malignant neoplasm of colon (procedure) [code = 354785991] [facility] Future Scheduled Test 1972 00:00:00 Screening for malignant neoplasm of colon (procedure) [code = 340498532] [facility] Future Scheduled Test 1972 00:00:00 Screening for malignant neoplasm of colon (procedure) [code = 624344916] [facility] Future Scheduled Test 1972 00:00:00 Sigmoidoscopy [code = Sigmoidoscopy] [facility] Future Scheduled Test 1972 00:00:00 Screening for malignant neoplasm of breast (procedure) [code = 167146880] [facility] Future Scheduled Test 1972 00:00:00 CT Colonography (combo) [code = CT Colonography (combo)] [facility] Future Scheduled Test 1972 00:00:00 Screening for malignant neoplasm of colon (procedure) [code = 695256394] [facility] Future Scheduled Test 1972 00:00:00 Screening for malignant neoplasm of colon (procedure) [code = 850132633] [facility] Future Scheduled Test 1972 00:00:00 Screening for malignant neoplasm of colon (procedure) [code = 238423655] [facility] Future Scheduled Test 1972 00:00:00 Screening for malignant neoplasm of colon (procedure) [code = 871294149] [facility] Future Scheduled Test 1972 00:00:00 Sigmoidoscopy [code = Sigmoidoscopy] [facility] Future Scheduled Test 1972 00:00:00 Screening for malignant neoplasm of breast (procedure) [code = 866489272] [facility] Future Scheduled Test 1972 00:00:00 CT Colonography (combo) [code = CT Colonography (combo)] [facility] Future Scheduled Test 1972 00:00:00 Screening for malignant neoplasm of colon (procedure) [code = 034098548] [facility] Future Scheduled Test 1972 00:00:00 Screening for malignant neoplasm of colon (procedure) [code = 027973851] [facility] Future Scheduled Test 1972 00:00:00 Screening for malignant neoplasm of colon (procedure) [code = 213843779] [facility] Future Scheduled Test 1972 00:00:00 Screening for malignant neoplasm of colon (procedure) [code = 342263109] [facility] Future Scheduled Test 1972 00:00:00 Sigmoidoscopy [code = Sigmoidoscopy] [facility] Future Scheduled Test 1972 00:00:00 Screening for malignant neoplasm of breast (procedure) [code = 702485275] [facility] Future Scheduled Test 1972 00:00:00 CT Colonography (combo) [code = CT Colonography (combo)] [facility] Future Scheduled Test 1972 00:00:00 Screening for malignant neoplasm of colon (procedure) [code = 667591969] [facility] Future Scheduled Test 1972 00:00:00 Screening for malignant neoplasm of colon (procedure) [code = 629086776] [facility] Future Scheduled Test 1972 00:00:00 Screening for malignant neoplasm of colon (procedure) [code = 574772639] [facility] Future Scheduled Test 1972 00:00:00 Screening for malignant neoplasm of colon (procedure) [code = 538291786] [facility] Future Scheduled Test 1972 00:00:00 Sigmoidoscopy [code = Sigmoidoscopy] [facility] Future Scheduled Test 1972 00:00:00 Screening for malignant neoplasm of breast (procedure) [code = 489113997] [facility] Future Scheduled Test 1972 00:00:00 CT Colonography (combo) [code = CT Colonography (combo)] [facility] Future Scheduled Test 1972 00:00:00 Screening for malignant neoplasm of colon (procedure) [code = 185047919] [facility] Future Scheduled Test 1972 00:00:00 Screening for malignant neoplasm of colon (procedure) [code = 822947877] [facility] Future Scheduled Test 1972 00:00:00 Screening for malignant neoplasm of colon (procedure) [code = 103286426] [facility] Future Scheduled Test 1972 00:00:00 Screening for malignant neoplasm of colon (procedure) [code = 621111736] [facility] Future Scheduled Test 1972 00:00:00 Sigmoidoscopy [code = Sigmoidoscopy] [facility] Future Scheduled Test 1972 00:00:00 Screening for malignant neoplasm of breast (procedure) [code = 439573193] [facility] Future Scheduled Test 1972 00:00:00 CT Colonography (combo) [code = CT Colonography (combo)] [facility] Future Scheduled Test 1972 00:00:00 Screening for malignant neoplasm of colon (procedure) [code = 275008778] [facility] Future Scheduled Test 1972 00:00:00 Screening for malignant neoplasm of colon (procedure) [code = 528772792] [facility] Future Scheduled Test 1972 00:00:00 Screening for malignant neoplasm of colon (procedure) [code = 124511619] [facility] Future Scheduled Test 1972 00:00:00 Screening for malignant neoplasm of colon (procedure) [code = 595535619] [facility] Future Scheduled Test 1972 00:00:00 Sigmoidoscopy [code = Sigmoidoscopy] [facility] Future Scheduled Test 1972 00:00:00 Screening for malignant neoplasm of breast (procedure) [code = 334068916] [facility] Future Scheduled Test 1972 00:00:00 CT Colonography (combo) [code = CT Colonography (combo)] [facility] Future Scheduled Test 1972 00:00:00 Screening for malignant neoplasm of colon (procedure) [code = 855948898] [facility] Future Scheduled Test 1972 00:00:00 Screening for malignant neoplasm of colon (procedure) [code = 044173230] [facility] Future Scheduled Test 1972 00:00:00 Screening for malignant neoplasm of colon (procedure) [code = 503852743] [facility] Future Scheduled Test 1972 00:00:00 Screening for malignant neoplasm of colon (procedure) [code = 386400969] [facility] Future Scheduled Test 1972 00:00:00 Sigmoidoscopy [code = Sigmoidoscopy] [facility] Future Scheduled Test 1972 00:00:00 Screening for malignant neoplasm of breast (procedure) [code = 119000492] [facility] Future Scheduled Test 1972 00:00:00 CT Colonography (combo) [code = CT Colonography (combo)] [facility] Future Scheduled Test 1972 00:00:00 Screening for malignant neoplasm of colon (procedure) [code = 216572515] [facility] Future Scheduled Test 1972 00:00:00 Screening for malignant neoplasm of colon (procedure) [code = 916358996] [facility] Future Scheduled Test 1972 00:00:00 Screening for malignant neoplasm of colon (procedure) [code = 157471631] [facility] Future Scheduled Test 1972 00:00:00 Screening for malignant neoplasm of colon (procedure) [code = 448435753] [facility] Future Scheduled Test 1972 00:00:00 Sigmoidoscopy [code = Sigmoidoscopy] [facility] Future Scheduled Test 1972 00:00:00 Screening for malignant neoplasm of breast (procedure) [code = 385676970] [facility] Future Scheduled Test 1972 00:00:00 CT Colonography (combo) [code = CT Colonography (combo)] [facility] Future Scheduled Test 1972 00:00:00 Screening for malignant neoplasm of colon (procedure) [code = 135937331] [facility] Future Scheduled Test 1972 00:00:00 Screening for malignant neoplasm of colon (procedure) [code = 569314175] [facility] Future Scheduled Test 1972 00:00:00 Screening for malignant neoplasm of colon (procedure) [code = 272565405] [facility] Future Scheduled Test 1972 00:00:00 Screening for malignant neoplasm of colon (procedure) [code = 792423021] [facility] Future Scheduled Test 1972 00:00:00 Sigmoidoscopy [code = Sigmoidoscopy] [facility] Future Scheduled Test 1972 00:00:00 Screening for malignant neoplasm of breast (procedure) [code = 154926902] [facility] Future Scheduled Test 1972 00:00:00 CT Colonography (combo) [code = CT Colonography (combo)] [facility] Future Scheduled Test 1972 00:00:00 Screening for malignant neoplasm of breast (procedure) [code = 104473866] [facility] Future Scheduled Test 1972 00:00:00 CT Colonography (combo) [code = CT Colonography (combo)] [facility] Future Scheduled Test 1972 00:00:00 Screening for malignant neoplasm of colon (procedure) [code = 918350481] [facility] Future Scheduled Test 1972 00:00:00 Screening for malignant neoplasm of colon (procedure) [code = 356627101] [facility] Future Scheduled Test 1972 00:00:00 Screening for malignant neoplasm of colon (procedure) [code = 532137276] [facility] Future Scheduled Test 1972 00:00:00 Screening for malignant neoplasm of colon (procedure) [code = 375159703] [facility] Future Scheduled Test 1972 00:00:00 Sigmoidoscopy [code = Sigmoidoscopy] [facility] Future Scheduled Test 1972 00:00:00 Screening for malignant neoplasm of colon (procedure) [code = 962288562] [facility] Future Scheduled Test 1972 00:00:00 Screening for malignant neoplasm of colon (procedure) [code = 367631005] [facility] Future Scheduled Test 1972 00:00:00 Screening for malignant neoplasm of colon (procedure) [code = 127487909] [facility] Future Scheduled Test 1972 00:00:00 Screening for malignant neoplasm of colon (procedure) [code = 091817350] [facility] Future Scheduled Test 1972 00:00:00 Sigmoidoscopy [code = Sigmoidoscopy] [facility] Future Scheduled Test 1972 00:00:00 Screening for malignant neoplasm of breast (procedure) [code = 857410562] [facility] Future Scheduled Test 1972 00:00:00 CT Colonography (combo) [code = CT Colonography (combo)] [facility] Future Scheduled Test 1972 00:00:00 Screening for malignant neoplasm of colon (procedure) [code = [id number]] [facility] Future Scheduled Test 1972 00:00:00 Screening for malignant neoplasm of colon (procedure) [code = 855524883] [facility] Future Scheduled Test 1972 00:00:00 Screening for malignant neoplasm of colon (procedure) [code = 541152287] [facility] Future Scheduled Test 1972 00:00:00 Screening for malignant neoplasm of colon (procedure) [code = 687882792] [facility] Future Scheduled Test 1972 00:00:00 Sigmoidoscopy [code = Sigmoidoscopy] [facility] Future Scheduled Test 1972 00:00:00 Screening for malignant neoplasm of breast (procedure) [code = 923143312] [facility] Future Scheduled Test 1972 00:00:00 CT Colonography (combo) [code = CT Colonography (combo)] [facility] Future Scheduled Test 1972 00:00:00 Screening for malignant neoplasm of colon (procedure) [code = [id number]] [facility] Future Scheduled Test 1972 00:00:00 Screening for malignant neoplasm of colon (procedure) [code = 132583122] [facility] Future Scheduled Test 1972 00:00:00 Screening for malignant neoplasm of colon (procedure) [code = 945018952] [facility] Future Scheduled Test 1972 00:00:00 Screening for malignant neoplasm of colon (procedure) [code = 695314297] [facility] Future Scheduled Test 1972 00:00:00 Sigmoidoscopy [code = Sigmoidoscopy] [facility] Future Scheduled Test 1972 00:00:00 Screening for malignant neoplasm of breast (procedure) [code = 401318271] [facility] Future Scheduled Test 1972 00:00:00 CT Colonography (combo) [code = CT Colonography (combo)] [facility] Future Scheduled Test 1972 00:00:00 Screening for malignant neoplasm of colon (procedure) [code = 607028122] [facility] Future Scheduled Test 1972 00:00:00 Screening for malignant neoplasm of colon (procedure) [code = 730105965] [facility] Future Scheduled Test 1972 00:00:00 Screening for malignant neoplasm of colon (procedure) [code = 508191576] [facility] Future Scheduled Test 1972 00:00:00 Screening for malignant neoplasm of colon (procedure) [code = 638806901] [facility] Future Scheduled Test 1972 00:00:00 Sigmoidoscopy [code = Sigmoidoscopy] [facility] Future Scheduled Test 1972 00:00:00 Screening for malignant neoplasm of breast (procedure) [code = 867364228] [facility] Future Scheduled Test 1972 00:00:00 CT Colonography (combo) [code = CT Colonography (combo)] [facility] Future Scheduled Test 1972 00:00:00 Screening for malignant neoplasm of colon (procedure) [code = 198241910] [facility] Future Scheduled Test 1972 00:00:00 Screening for malignant neoplasm of colon (procedure) [code = 875058128] [facility] Future Scheduled Test 1972 00:00:00 Screening for malignant neoplasm of colon (procedure) [code = 370689935] [facility] Future Scheduled Test 1972 00:00:00 Screening for malignant neoplasm of colon (procedure) [code = 734152935] [facility] Future Scheduled Test 1972 00:00:00 Sigmoidoscopy [code = Sigmoidoscopy] [facility] Future Scheduled Test 1972 00:00:00 Screening for malignant neoplasm of breast (procedure) [code = 885602490] [facility] Future Scheduled Test 1972 00:00:00 CT Colonography (combo) [code = CT Colonography (combo)] [facility] Future Scheduled Test 1972 00:00:00 Screening for malignant neoplasm of colon (procedure) [code = 773992987] [facility] Future Scheduled Test 1972 00:00:00 Screening for malignant neoplasm of colon (procedure) [code = 680817003] [facility] Future Scheduled Test 1972 00:00:00 Screening for malignant neoplasm of colon (procedure) [code = 803809874] [facility] Future Scheduled Test 1972 00:00:00 Screening for malignant neoplasm of colon (procedure) [code = 612167558] [facility] Future Scheduled Test 1972 00:00:00 Sigmoidoscopy [code = Sigmoidoscopy] [facility] Future Scheduled Test 1972 00:00:00 Screening for malignant neoplasm of breast (procedure) [code = 552934291] [facility] Future Scheduled Test 1972 00:00:00 CT Colonography (combo) [code = CT Colonography (combo)] [facility] Future Scheduled Test 1972 00:00:00 Screening for malignant neoplasm of colon (procedure) [code = 435246688] [facility] Future Scheduled Test 1972 00:00:00 Screening for malignant neoplasm of colon (procedure) [code = 442045868] [facility] Future Scheduled Test 1972 00:00:00 Screening for malignant neoplasm of colon (procedure) [code = 150423305] [facility] Future Scheduled Test 1972 00:00:00 Screening for malignant neoplasm of colon (procedure) [code = 251481781] [facility] Future Scheduled Test 1972 00:00:00 Sigmoidoscopy [code = Sigmoidoscopy] [facility] Future Scheduled Test 1972 00:00:00 Screening for malignant neoplasm of breast (procedure) [code = 191816173] [facility] Future Scheduled Test 1972 00:00:00 CT Colonography (combo) [code = CT Colonography (combo)] [facility] Future Scheduled Test 1972 00:00:00 Screening for malignant neoplasm of colon (procedure) [code = 661545392] [facility] Future Scheduled Test 1972 00:00:00 Screening for malignant neoplasm of colon (procedure) [code = 503615990] [facility] Future Scheduled Test 1972 00:00:00 Screening for malignant neoplasm of colon (procedure) [code = 815088336] [facility] Future Scheduled Test 1972 00:00:00 Screening for malignant neoplasm of colon (procedure) [code = 797572986] [facility] Future Scheduled Test 1972 00:00:00 Screening for malignant neoplasm of breast (procedure) [code = 777312609] [facility] Future Scheduled Test 1972 00:00:00 CT Colonography (combo) [code = CT Colonography (combo)] [facility] Future Scheduled Test 1972 00:00:00 Sigmoidoscopy [code = Sigmoidoscopy] [facility] Future Scheduled Test 1972 00:00:00 Screening for malignant neoplasm of colon (procedure) [code = 590300086] [facility] Future Scheduled Test 1972 00:00:00 Screening for malignant neoplasm of colon (procedure) [code = 462451831] [facility] Future Scheduled Test 1972 00:00:00 Screening for malignant neoplasm of colon (procedure) [code = 879386211] [facility] Future Scheduled Test 1972 00:00:00 Screening for malignant neoplasm of colon (procedure) [code = 882132989] [facility] Future Scheduled Test 1972 00:00:00 Sigmoidoscopy [code = Sigmoidoscopy] [facility] Future Scheduled Test 1972 00:00:00 Screening for malignant neoplasm of breast (procedure) [code = 150555510] [facility] Future Scheduled Test 1972 00:00:00 CT Colonography (combo) [code = CT Colonography (combo)] [facility] Future Scheduled Test 1972 00:00:00 Screening for malignant neoplasm of colon (procedure) [code = 754221729] [facility] Future Scheduled Test 1972 00:00:00 Screening for malignant neoplasm of colon (procedure) [code = 011960388] [facility] Future Scheduled Test 1972 00:00:00 Screening for malignant neoplasm of colon (procedure) [code = 169727842] [facility] Future Scheduled Test 1972 00:00:00 Screening for malignant neoplasm of colon (procedure) [code = 467457221] [facility] Future Scheduled Test 1972 00:00:00 Sigmoidoscopy [code = Sigmoidoscopy] [facility] Future Scheduled Test 1972 00:00:00 Screening for malignant neoplasm of breast (procedure) [code = 546349615] [facility] Future Scheduled Test 1972 00:00:00 CT Colonography (combo) [code = CT Colonography (combo)] [facility] Future Scheduled Test 1972 00:00:00 Screening for malignant neoplasm of colon (procedure) [code = 370644422] [facility] Future Scheduled Test 1972 00:00:00 Screening for malignant neoplasm of colon (procedure) [code = 694731710] [facility] Future Scheduled Test 1972 00:00:00 Screening for malignant neoplasm of colon (procedure) [code = 225155216] [facility] Future Scheduled Test 1972 00:00:00 Screening for malignant neoplasm of colon (procedure) [code = 027719738] [facility] Future Scheduled Test 1972 00:00:00 Sigmoidoscopy [code = Sigmoidoscopy] [facility] Future Scheduled Test 1972 00:00:00 Screening for malignant neoplasm of breast (procedure) [code = 448102280] [facility] Future Scheduled Test 1972 00:00:00 CT Colonography (combo) [code = CT Colonography (combo)] [facility] Future Scheduled Test 1972 00:00:00 Screening for malignant neoplasm of colon (procedure) [code = 469220509] [facility] Future Scheduled Test 1972 00:00:00 Screening for malignant neoplasm of colon (procedure) [code = 052183252] [facility] Future Scheduled Test 1972 00:00:00 Screening for malignant neoplasm of colon (procedure) [code = 037317438] [facility] Future Scheduled Test 1972 00:00:00 Screening for malignant neoplasm of colon (procedure) [code = 987865315] [facility] Future Scheduled Test 1972 00:00:00 Sigmoidoscopy [code = Sigmoidoscopy] [facility] Future Scheduled Test 1972 00:00:00 Screening for malignant neoplasm of breast (procedure) [code = 082939843] [facility] Future Scheduled Test 1972 00:00:00 CT Colonography (combo) [code = CT Colonography (combo)] [facility] Future Scheduled Test 1972 00:00:00 Screening for malignant neoplasm of colon (procedure) [code = 459344227] [facility] Future Scheduled Test 1972 00:00:00 Screening for malignant neoplasm of colon (procedure) [code = 854424816] [facility] Future Scheduled Test 1972 00:00:00 Screening for malignant neoplasm of colon (procedure) [code = 658868381] [facility] Future Scheduled Test 1972 00:00:00 Screening for malignant neoplasm of colon (procedure) [code = 649594302] [facility] Future Scheduled Test 1972 00:00:00 Sigmoidoscopy [code = Sigmoidoscopy] [facility] Future Scheduled Test 1972 00:00:00 Screening for malignant neoplasm of breast (procedure) [code = 532936753] [facility] Future Scheduled Test 1972 00:00:00 CT Colonography (combo) [code = CT Colonography (combo)] [facility] Future Scheduled Test 1972 00:00:00 Screening for malignant neoplasm of colon (procedure) [code = 282540483] [facility] Future Scheduled Test 1972 00:00:00 Screening for malignant neoplasm of colon (procedure) [code = 739145456] [facility] Future Scheduled Test 1972 00:00:00 Screening for malignant neoplasm of colon (procedure) [code = 562556797] [facility] Future Scheduled Test 1972 00:00:00 Screening for malignant neoplasm of colon (procedure) [code = 798452665] [facility] Future Scheduled Test 1972 00:00:00 Sigmoidoscopy [code = Sigmoidoscopy] [facility] Future Scheduled Test 1972 00:00:00 Screening for malignant neoplasm of breast (procedure) [code = 414437171] [facility] Future Scheduled Test 1972 00:00:00 CT Colonography (combo) [code = CT Colonography (combo)] [facility] Future Scheduled Test 1972 00:00:00 Screening for malignant neoplasm of colon (procedure) [code = 515252759] [facility] Future Scheduled Test 1972 00:00:00 Screening for malignant neoplasm of colon (procedure) [code = 666322922] [facility] Future Scheduled Test 1972 00:00:00 Screening for malignant neoplasm of breast (procedure) [code = 633747351] [facility] Future Scheduled Test 1972 00:00:00 Screening for malignant neoplasm of colon (procedure) [code = 601395196] [facility] Future Scheduled Test 1972 00:00:00 CT Colonography (combo) [code = CT Colonography (combo)] [facility] Future Scheduled Test 1972 00:00:00 Screening for malignant neoplasm of colon (procedure) [code = 185444877] [facility] Future Scheduled Test 1972 00:00:00 Screening for malignant neoplasm of colon (procedure) [code = 364429717] [facility] Future Scheduled Test 1972 00:00:00 Screening for malignant neoplasm of colon (procedure) [code = 221119665] [facility] Future Scheduled Test 1972 00:00:00 Screening for malignant neoplasm of colon (procedure) [code = 951306747] [facility] Future Scheduled Test 1972 00:00:00 Sigmoidoscopy [code = Sigmoidoscopy] [facility] Future Scheduled Test 1972 00:00:00 Screening for malignant neoplasm of colon (procedure) [code = 669834164] [facility] Future Scheduled Test 1972 00:00:00 Sigmoidoscopy [code = Sigmoidoscopy] [facility] Future Scheduled Test 1972 00:00:00 Screening for malignant neoplasm of breast (procedure) [code = 608888824] [facility] Future Scheduled Test 1972 00:00:00 CT Colonography (combo) [code = CT Colonography (combo)] [facility] Future Scheduled Test 1972 00:00:00 Screening for malignant neoplasm of colon (procedure) [code = 766941708] [facility] Future Scheduled Test 1972 00:00:00 Screening for malignant neoplasm of colon (procedure) [code = 171543785] [facility] Future Scheduled Test 1972 00:00:00 Screening for malignant neoplasm of colon (procedure) [code = 682392104] [facility] Future Scheduled Test 1972 00:00:00 Screening for malignant neoplasm of colon (procedure) [code = 529859648] [facility] Future Scheduled Test 1972 00:00:00 Sigmoidoscopy [code = Sigmoidoscopy] [facility] Future Scheduled Test 1972 00:00:00 Screening for malignant neoplasm of breast (procedure) [code = 991964433] [facility] Future Scheduled Test 1972 00:00:00 CT Colonography (combo) [code = CT Colonography (combo)] [facility] Future Scheduled Test 1972 00:00:00 Screening for malignant neoplasm of colon (procedure) [code = 506139882] [facility] Future Scheduled Test 1972 00:00:00 Screening for malignant neoplasm of colon (procedure) [code = 399889492] [facility] Future Scheduled Test 1972 00:00:00 Screening for malignant neoplasm of colon (procedure) [code = 618056252] [facility] Future Scheduled Test 1972 00:00:00 Screening for malignant neoplasm of colon (procedure) [code = 527825931] [facility] Future Scheduled Test 1972 00:00:00 Sigmoidoscopy [code = Sigmoidoscopy] [facility] Future Scheduled Test 1972 00:00:00 Screening for malignant neoplasm of breast (procedure) [code = 669268911] [facility] Future Scheduled Test 1972 00:00:00 CT Colonography (combo) [code = CT Colonography (combo)] [facility] Future Scheduled Test 1972 00:00:00 Screening for malignant neoplasm of colon (procedure) [code = 337906304] [facility] Future Scheduled Test 1972 00:00:00 Screening for malignant neoplasm of colon (procedure) [code = 428218317] [facility] Future Scheduled Test 1972 00:00:00 Screening for malignant neoplasm of colon (procedure) [code = 710277319] [facility] Future Scheduled Test 1972 00:00:00 Screening for malignant neoplasm of colon (procedure) [code = 903093416] [facility] Future Scheduled Test 1972 00:00:00 Sigmoidoscopy [code = Sigmoidoscopy] [facility] Future Scheduled Test 1972 00:00:00 Screening for malignant neoplasm of breast (procedure) [code = 180424974] [facility] Future Scheduled Test 1972 00:00:00 CT Colonography (combo) [code = CT Colonography (combo)] [facility] Future Scheduled Test 1972 00:00:00 Screening for malignant neoplasm of colon (procedure) [code = 098333987] [facility] Future Scheduled Test 1972 00:00:00 Screening for malignant neoplasm of colon (procedure) [code = 398137186] [facility] Future Scheduled Test 1972 00:00:00 Screening for malignant neoplasm of colon (procedure) [code = 756044979] [facility] Future Scheduled Test 1972 00:00:00 Screening for malignant neoplasm of colon (procedure) [code = 949524984] [facility] Future Scheduled Test 1972 00:00:00 Sigmoidoscopy [code = Sigmoidoscopy] [facility] Future Scheduled Test 1972 00:00:00 Screening for malignant neoplasm of breast (procedure) [code = 613864765] [facility] Future Scheduled Test 1972 00:00:00 CT Colonography (combo) [code = CT Colonography (combo)] [facility] Future Scheduled Test 1972 00:00:00 Screening for malignant neoplasm of colon (procedure) [code = 868229046] [facility] Future Scheduled Test 1972 00:00:00 Screening for malignant neoplasm of colon (procedure) [code = 737769787] [facility] Future Scheduled Test 1972 00:00:00 Screening for malignant neoplasm of colon (procedure) [code = 333030378] [facility] Future Scheduled Test 1972 00:00:00 Screening for malignant neoplasm of colon (procedure) [code = 921193741] [facility] Future Scheduled Test 1972 00:00:00 Sigmoidoscopy [code = Sigmoidoscopy] [facility] Future Scheduled Test 1972 00:00:00 Screening for malignant neoplasm of breast (procedure) [code = 611438973] [facility] Future Scheduled Test 1972 00:00:00 CT Colonography (combo) [code = CT Colonography (combo)] [facility] Future Scheduled Test 1972 00:00:00 Screening for malignant neoplasm of colon (procedure) [code = 376471305] [facility] Future Scheduled Test 1972 00:00:00 Screening for malignant neoplasm of colon (procedure) [code = 824005555] [facility] Future Scheduled Test 1972 00:00:00 Screening for malignant neoplasm of colon (procedure) [code = 522384889] [facility] Future Scheduled Test 1972 00:00:00 Screening for malignant neoplasm of colon (procedure) [code = 266148450] [facility] Future Scheduled Test 1972 00:00:00 Sigmoidoscopy [code = Sigmoidoscopy] [facility] Future Scheduled Test 1972 00:00:00 Screening for malignant neoplasm of breast (procedure) [code = 064591107] [facility] Future Scheduled Test 1972 00:00:00 CT Colonography (combo) [code = CT Colonography (combo)] [facility] Future Scheduled Test 1972 00:00:00 Screening for malignant neoplasm of colon (procedure) [code = 898126137] [facility] Future Scheduled Test 1972 00:00:00 Screening for malignant neoplasm of colon (procedure) [code = 636296217] [facility] Future Scheduled Test 1972 00:00:00 Screening for malignant neoplasm of colon (procedure) [code = 827872512] [facility] Future Scheduled Test 1972 00:00:00 Screening for malignant neoplasm of colon (procedure) [code = 672742866] [facility] Future Scheduled Test 1972 00:00:00 Sigmoidoscopy [code = Sigmoidoscopy] [facility] Future Scheduled Test 1972 00:00:00 Screening for malignant neoplasm of breast (procedure) [code = 797798489] [facility] Future Scheduled Test 1972 00:00:00 CT Colonography (combo) [code = CT Colonography (combo)] [facility] Future Scheduled Test 1972 00:00:00 Screening for malignant neoplasm of colon (procedure) [code = 135105586] [facility] Future Scheduled Test 1972 00:00:00 Screening for malignant neoplasm of colon (procedure) [code = 545607662] [facility] Future Scheduled Test 1972 00:00:00 Screening for malignant neoplasm of colon (procedure) [code = 894959243] [facility] Future Scheduled Test 1972 00:00:00 Screening for malignant neoplasm of colon (procedure) [code = 749191814] [facility] Future Scheduled Test 1972 00:00:00 Sigmoidoscopy [code = Sigmoidoscopy] [facility] Future Scheduled Test 1972 00:00:00 Screening for malignant neoplasm of breast (procedure) [code = 857275668] [facility] Future Scheduled Test 1972 00:00:00 CT Colonography (combo) [code = CT Colonography (combo)] [facility] Future Scheduled Test 1972 00:00:00 Screening for malignant neoplasm of colon (procedure) [code = 453842431] [facility] Future Scheduled Test 1972 00:00:00 Screening for malignant neoplasm of colon (procedure) [code = 430564222] [facility] Future Scheduled Test 1972 00:00:00 Screening for malignant neoplasm of colon (procedure) [code = 631050981] [facility] Future Scheduled Test 1972 00:00:00 Screening for malignant neoplasm of colon (procedure) [code = 168313567] [facility] Future Scheduled Test 1972 00:00:00 Sigmoidoscopy [code = Sigmoidoscopy] [facility] Future Scheduled Test 1972 00:00:00 Screening for malignant neoplasm of breast (procedure) [code = 317367340] [facility] Future Scheduled Test 1972 00:00:00 CT Colonography (combo) [code = CT Colonography (combo)] [facility] Future Scheduled Test 1972 00:00:00 Screening for malignant neoplasm of colon (procedure) [code = 273131429] [facility] Future Scheduled Test 1972 00:00:00 Screening for malignant neoplasm of colon (procedure) [code = 268958946] [facility] Future Scheduled Test 1972 00:00:00 Screening for malignant neoplasm of colon (procedure) [code = 223444309] [facility] Future Scheduled Test 1972 00:00:00 Screening for malignant neoplasm of colon (procedure) [code = 391502952] [facility] Future Scheduled Test 1972 00:00:00 Sigmoidoscopy [code = Sigmoidoscopy] [facility] Future Scheduled Test 1972 00:00:00 Screening for malignant neoplasm of breast (procedure) [code = 593138749] [facility] Future Scheduled Test 1972 00:00:00 CT Colonography (combo) [code = CT Colonography (combo)] [facility] Future Scheduled Test 1972 00:00:00 Screening for malignant neoplasm of colon (procedure) [code = 490001887] [facility] Future Scheduled Test 1972 00:00:00 Screening for malignant neoplasm of breast (procedure) [code = 174599317] [facility] Future Scheduled Test 1972 00:00:00 CT Colonography (combo) [code = CT Colonography (combo)] [facility] Future Scheduled Test 1972 00:00:00 Screening for malignant neoplasm of colon (procedure) [code = 011213997] [facility] Future Scheduled Test 1972 00:00:00 Screening for malignant neoplasm of colon (procedure) [code = 491763914] [facility] Future Scheduled Test 1972 00:00:00 Screening for malignant neoplasm of colon (procedure) [code = 823130142] [facility] Future Scheduled Test 1972 00:00:00 Screening for malignant neoplasm of colon (procedure) [code = 046081206] [facility] Future Scheduled Test 1972 00:00:00 Sigmoidoscopy [code = Sigmoidoscopy] [facility] Future Scheduled Test 1972 00:00:00 Screening for malignant neoplasm of colon (procedure) [code = 829849878] [facility] Future Scheduled Test 1972 00:00:00 Screening for malignant neoplasm of colon (procedure) [code = 268880777] [facility] Future Scheduled Test 1972 00:00:00 Screening for malignant neoplasm of colon (procedure) [code = 373823780] [facility] Future Scheduled Test 1972 00:00:00 Sigmoidoscopy [code = Sigmoidoscopy] [facility] Future Scheduled Test 1972 00:00:00 Screening for malignant neoplasm of breast (procedure) [code = 147711304] [facility] Future Scheduled Test 1972 00:00:00 CT Colonography (combo) [code = CT Colonography (combo)] [facility] Future Scheduled Test 1972 00:00:00 Screening for malignant neoplasm of colon (procedure) [code = 548046935] [facility] Future Scheduled Test 1972 00:00:00 Screening for malignant neoplasm of colon (procedure) [code = 798196846] [facility] Future Scheduled Test 1972 00:00:00 Screening for malignant neoplasm of colon (procedure) [code = 763512490] [facility] Future Scheduled Test 1972 00:00:00 Screening for malignant neoplasm of colon (procedure) [code = 769579960] [facility] Future Scheduled Test 1972 00:00:00 Sigmoidoscopy [code = Sigmoidoscopy] [facility] Future Scheduled Test 1972 00:00:00 Screening for malignant neoplasm of breast (procedure) [code = 469020860] [facility] Future Scheduled Test 1972 00:00:00 CT Colonography (combo) [code = CT Colonography (combo)] [facility] Future Scheduled Test 1972 00:00:00 Screening for malignant neoplasm of colon (procedure) [code = 978705946] [facility] Future Scheduled Test 1972 00:00:00 Screening for malignant neoplasm of colon (procedure) [code = 369667731] [facility] Future Scheduled Test 1972 00:00:00 Screening for malignant neoplasm of colon (procedure) [code = 506230228] [facility] Future Scheduled Test 1972 00:00:00 Screening for malignant neoplasm of colon (procedure) [code = 636531581] [facility] Future Scheduled Test 1972 00:00:00 Sigmoidoscopy [code = Sigmoidoscopy] [facility] Future Scheduled Test 1972 00:00:00 Screening for malignant neoplasm of breast (procedure) [code = 863982024] [facility] Future Scheduled Test 1972 00:00:00 CT Colonography (combo) [code = CT Colonography (combo)] [facility] Future Scheduled Test 1972 00:00:00 Screening for malignant neoplasm of colon (procedure) [code = 904862567] [facility] Future Scheduled Test 1972 00:00:00 Screening for malignant neoplasm of colon (procedure) [code = 317447446] [facility] Future Scheduled Test 1972 00:00:00 Screening for malignant neoplasm of colon (procedure) [code = 312315757] [facility] Future Scheduled Test 1972 00:00:00 Screening for malignant neoplasm of colon (procedure) [code = 944504783] [facility] Future Scheduled Test 1972 00:00:00 Sigmoidoscopy [code = Sigmoidoscopy] [facility] Future Scheduled Test 1972 00:00:00 Screening for malignant neoplasm of breast (procedure) [code = 230235146] [facility] Future Scheduled Test 1972 00:00:00 CT Colonography (combo) [code = CT Colonography (combo)] [facility] Future Scheduled Test 1972 00:00:00 Screening for malignant neoplasm of colon (procedure) [code = 073175763] [facility] Future Scheduled Test 1972 00:00:00 Screening for malignant neoplasm of colon (procedure) [code = 290420272] [facility] Future Scheduled Test 1972 00:00:00 Screening for malignant neoplasm of colon (procedure) [code = 198993688] [facility] Future Scheduled Test 1972 00:00:00 Screening for malignant neoplasm of colon (procedure) [code = 839936788] [facility] Future Scheduled Test 1972 00:00:00 Sigmoidoscopy [code = Sigmoidoscopy] [facility] Future Scheduled Test 1972 00:00:00 Screening for malignant neoplasm of breast (procedure) [code = 410817637] [facility] Future Scheduled Test 1972 00:00:00 CT Colonography (combo) [code = CT Colonography (combo)] [facility] Future Scheduled Test 1972 00:00:00 Screening for malignant neoplasm of colon (procedure) [code = 759276482] [facility] Future Scheduled Test 1972 00:00:00 Screening for malignant neoplasm of colon (procedure) [code = 261191074] [facility] Future Scheduled Test 1972 00:00:00 Screening for malignant neoplasm of colon (procedure) [code = 493894812] [facility] Future Scheduled Test 1972 00:00:00 Screening for malignant neoplasm of colon (procedure) [code = 093381071] [facility] Future Scheduled Test 1972 00:00:00 Sigmoidoscopy [code = Sigmoidoscopy] [facility] Future Scheduled Test 1972 00:00:00 Screening for malignant neoplasm of breast (procedure) [code = 909507795] [facility] Future Scheduled Test 1972 00:00:00 CT Colonography (combo) [code = CT Colonography (combo)] [facility] Future Scheduled Test 1972 00:00:00 Screening for malignant neoplasm of colon (procedure) [code = 941221464] [facility] Future Scheduled Test 1972 00:00:00 Screening for malignant neoplasm of colon (procedure) [code = 893279295] [facility] Future Scheduled Test 1972 00:00:00 Screening for malignant neoplasm of colon (procedure) [code = 632566119] [facility] Future Scheduled Test 1972 00:00:00 Screening for malignant neoplasm of colon (procedure) [code = 437707568] [facility] Future Scheduled Test 1972 00:00:00 Sigmoidoscopy [code = Sigmoidoscopy] [facility] Future Scheduled Test 1972 00:00:00 Screening for malignant neoplasm of breast (procedure) [code = 756202844] [facility] Future Scheduled Test 1972 00:00:00 CT Colonography (combo) [code = CT Colonography (combo)] [facility] Future Scheduled Test 1972 00:00:00 Screening for malignant neoplasm of colon (procedure) [code = 206496430] [facility] Future Scheduled Test 1972 00:00:00 Screening for malignant neoplasm of colon (procedure) [code = 538972760] [facility] Future Scheduled Test 1972 00:00:00 Screening for malignant neoplasm of colon (procedure) [code = 155346016] [facility] Future Scheduled Test 1972 00:00:00 Screening for malignant neoplasm of colon (procedure) [code = 948716646] [facility] Future Scheduled Test 1972 00:00:00 Sigmoidoscopy [code = Sigmoidoscopy] [facility] Future Scheduled Test 1972 00:00:00 Screening for malignant neoplasm of breast (procedure) [code = 450194360] [facility] Future Scheduled Test 1972 00:00:00 CT Colonography (combo) [code = CT Colonography (combo)] [facility] Future Scheduled Test 1972 00:00:00 Screening for malignant neoplasm of colon (procedure) [code = 738381451] [facility] Future Scheduled Test 1972 00:00:00 Screening for malignant neoplasm of colon (procedure) [code = 757295022] [facility] Future Scheduled Test 1972 00:00:00 Screening for malignant neoplasm of colon (procedure) [code = 623654279] [facility] Future Scheduled Test 1972 00:00:00 Screening for malignant neoplasm of colon (procedure) [code = 544148846] [facility] Future Scheduled Test 1972 00:00:00 Sigmoidoscopy [code = Sigmoidoscopy] [facility] Future Scheduled Test 1972 00:00:00 Screening for malignant neoplasm of breast (procedure) [code = 882568994] [facility] Future Scheduled Test 1972 00:00:00 CT Colonography (combo) [code = CT Colonography (combo)] [facility] Future Scheduled Test 1972 00:00:00 Screening for malignant neoplasm of colon (procedure) [code = 711205680] [facility] Future Scheduled Test 1972 00:00:00 Screening for malignant neoplasm of colon (procedure) [code = 178380285] [facility] Future Scheduled Test 1972 00:00:00 Screening for malignant neoplasm of colon (procedure) [code = 869007474] [facility] Future Scheduled Test 1972 00:00:00 Screening for malignant neoplasm of colon (procedure) [code = 314496543] [facility] Future Scheduled Test 1972 00:00:00 Sigmoidoscopy [code = Sigmoidoscopy] [facility] Future Scheduled Test 1972 00:00:00 Screening for malignant neoplasm of breast (procedure) [code = 564616487] [facility] Future Scheduled Test 1972 00:00:00 CT Colonography (combo) [code = CT Colonography (combo)] [facility] Future Scheduled Test 1972 00:00:00 Screening for malignant neoplasm of colon (procedure) [code = 524650217] [facility] Future Scheduled Test 1972 00:00:00 Screening for malignant neoplasm of colon (procedure) [code = 507868832] [facility] Future Scheduled Test 1972 00:00:00 Screening for malignant neoplasm of colon (procedure) [code = 601572621] [facility] Future Scheduled Test 1972 00:00:00 Screening for malignant neoplasm of colon (procedure) [code = 834573282] [facility] Future Scheduled Test 1972 00:00:00 Sigmoidoscopy [code = Sigmoidoscopy] [facility] Future Scheduled Test 1972 00:00:00 Screening for malignant neoplasm of breast (procedure) [code = 908861311] [facility] Future Scheduled Test 1972 00:00:00 CT Colonography (combo) [code = CT Colonography (combo)] [facility] Future Scheduled Test 1972 00:00:00 Screening for malignant neoplasm of colon (procedure) [code = 007960418] [facility] Future Scheduled Test 1972 00:00:00 Screening for malignant neoplasm of colon (procedure) [code = 527972525] [facility] Future Scheduled Test 1972 00:00:00 Screening for malignant neoplasm of colon (procedure) [code = 144083770] [facility] Future Scheduled Test 1972 00:00:00 Screening for malignant neoplasm of colon (procedure) [code = 729760465] [facility] Future Scheduled Test 1972 00:00:00 Sigmoidoscopy [code = Sigmoidoscopy] [facility] Future Scheduled Test 1972 00:00:00 Screening for malignant neoplasm of breast (procedure) [code = 833721656] [facility] Future Scheduled Test 1972 00:00:00 CT Colonography (combo) [code = CT Colonography (combo)] [facility] Future Scheduled Test 1972 00:00:00 Screening for malignant neoplasm of colon (procedure) [code = 109719653] [facility] Future Scheduled Test 1972 00:00:00 Screening for malignant neoplasm of colon (procedure) [code = 659702867] [facility] Future Scheduled Test 1972 00:00:00 Screening for malignant neoplasm of colon (procedure) [code = 459419887] [facility] Future Scheduled Test 1972 00:00:00 Screening for malignant neoplasm of colon (procedure) [code = 111555252] [facility] Future Scheduled Test 1972 00:00:00 Sigmoidoscopy [code = Sigmoidoscopy] [facility] Future Scheduled Test 1972 00:00:00 Screening for malignant neoplasm of breast (procedure) [code = 260385262] [facility] Future Scheduled Test 1972 00:00:00 CT Colonography (combo) [code = CT Colonography (combo)] [facility] Future Scheduled Test 1972 00:00:00 Screening for malignant neoplasm of colon (procedure) [code = 803054094] [facility] Future Scheduled Test 1972 00:00:00 Screening for malignant neoplasm of colon (procedure) [code = 389668516] [facility] Future Scheduled Test 1972 00:00:00 Screening for malignant neoplasm of colon (procedure) [code = 771054479] [facility] Future Scheduled Test 1972 00:00:00 Screening for malignant neoplasm of colon (procedure) [code = 600240307] [facility] Future Scheduled Test 1972 00:00:00 Sigmoidoscopy [code = Sigmoidoscopy] [facility] Goal Plan of Care Not e [code = 84854-4] Goal Plan of Care Not e [code = 42532-3] Goal Plan of Care Not e [code = 64016-3] Goal Plan of Care Not e [code = 60230-3] Goal Plan of Care Not e [code = 60254-5] Goal Plan of Care Not e [code = 29818-7] Goal Plan of Care Not e [code = 97647-3] Goal Plan of Care Not e [code = 70966-5] Goal Plan of Care Not e [code = 49868-2] Goal Plan of Care Not e [code = 27767-2] Goal Plan of Care Not e [code = 73657-9] Goal Plan of Care Not e [code = 50325-6] Goal Plan of Care Not e [code = 27149-1] Goal Plan of Care Not e [code = 44478-3] Goal Plan of Care Not e [code = 89282-9] Goal Plan of Care Not e [code = 47702-8] Goal Plan of Care Not e [code = 14310-0] Goal Plan of Care Not e [code = 09070-8] Goal Plan of Care Not e [code = 50308-8] Goal Plan of Care Not e [code = 41206-7] Goal Plan of Care Not e [code = 60706-9] Goal Plan of Care Not e [code = 23133-8] Goal Plan of Care Not e [code = 42837-7] Goal Plan of Care Not e [code = 37378-4] Goal Plan of Care Not e [code = 44896-0] Goal Plan of Care Not e [code = 42115-7] Goal Plan of Care Not e [code = 22288-2] Goal Plan of Care Not e [code = 79384-5] Goal Plan of Care Not e [code = 43985-1] Goal Plan of Care Not e [code = 04822-4] Goal Plan of Care Not e [code = 11798-9] Goal Plan of Care Not e [code = 58976-4] Goal Plan of Care Not e [code = 97547-7] Goal Plan of Care Not e [code = 37339-4] Goal Plan of Care Not e [code = 01796-6] Encounters Start Date/Time End Date/Time Encounter Type Admission Type Attending [facility] Care Facility Care Department Encounter ID Source 2023-09-07 10:11:03 Inpatient NICOLETTE SABAS, PANKAJ [facility] [id number] [facility] 2023-09-05 10:08:27 Inpatient PANKAJ PARRISH [facility] [id number] [facility] 2023-09-05 10:05:12 Inpatient PANKAJ PARRISH [facility] [id number] [facility] 2023-09-04 04:51:30 Inpatient PANKAJ PARRISH [facility] [id number] [facility] 2023-09-04 04:14:55 Inpatient PANKAJ PARRISH [facility] [id number] [facility] 2023-09-04 03:08:45 Inpatient PANKAJ PARRISH [facility] [id number] [facility] 2023-09-04 02:36:28 Inpatient APNKAJ PARRISH [facility] [id number] [facility] 2023-06-16 09:32:36 Inpatient AYDEE DICKENS [facility] [id number] [facility] 2023-06-16 09:32:09 Inpatient AYDEE DICKENS [facility] [id number] [facility] 2023-06-16 09:31:53 Inpatient AYDEE DICKENS [facility] [id number] [facility] 2023-06-14 07:46:02 Inpatient AYDEE DICKENS [facility] [id number] [facility] 2023-06-14 07:39:22 Inpatient AYDEE DICKENS [facility] [id number] [facility] 2023-06-14 06:38:38 Inpatient AYDEE DICKENS [facility] [id number] [facility] 2023-06-13 13:44:18 Inpatient [facility] [id number] [facility] 2023-06-13 11:45:24 Inpatient AYDEE DICKENS [facility] [id number] [facility] 2023-05-08 11:21:00 Outpatient EL ADAM GARCIA [facility] Surgery [id number] [facility] 2023-04-01 14:26:29 Inpatient ER DEVORA THOMAS [facility] [id number] [facility] 2023-03-31 09:24:52 Inpatient ER MARIAH ALDRIDGE [facility] [id number] [facility] 2021-05-20 18:48:[address] [facility] [id number] [facility] 2021-05-20 12:43:[address] [facility] [id number] [facility] 2023-11-12 15:15:00 2023-11-12 15:15:00 Outpatient GUSTAVO DELANEY CYNTHIA [facility] [id number] [facility] 2023-11-10 09:30:00 2023-11-10 09:30:00 Outpatient MIJARES MYLA [facility] [id number] [facility] 2023-10-16 11:10:00 2023-10-16 11:10:00 Outpatient SIDDHARTH STANFORD [id number] [facility] 2023-10-06 10:45:00 2023-10-06 10:45:00 Outpatient SARAI JULES [id number] [facility] 2023-10-05 11:30:00 2023-10-05 11:30:00 Outpatient PREGUSTAVO VILLANUEVA [id number] [facility] 2023-10-01 00:00:00 2023-10-01 00:00:00 Outpatient PREGUSTAVO VILLANUEVA [id number] [facility] 2023-09-30 14:15:00 2023-09-30 14:15:00 Outpatient GUSTAVO DELANEY [id number] [facility] 2023-09-24 00:00:00 2023-09-24 00:00:00 Outpatient PREGUSTAVO VILLANUEVA [id number] [facility] 2023-09-23 00:00:00 2023-09-23 00:00:00 Outpatient TIFFANY PUENTE [id number] [facility] 2023-09-22 00:00:00 2023-09-22 00:00:00 Outpatient PREGUSTAVO VILLANUEVA [id number] [facility] 2023-09-22 00:00:00 2023-09-22 00:00:00 Outpatient SHY GUILLEN [id number] [facility] 2023-09-16 00:00:00 2023-09-16 00:00:00 [facility] [id number] [facility]:00:00 2023-09-16 00:00:00 Outpatient GUSTAVO DELANEY CYNTHIA [id number] [facility] 2023-09-16 00:00:00 2023-09-16 00:00:00 Outpatient GUSTAVO DELANEY CYNTHIA [id number] [facility] 2023-09-14 00:00:00 2023-09-14 00:00:00 Outpatient SHY GUILLEN CYNTHIA [id number] [facility] 2023-09-14 00:00:00 2023-09-14 00:00:00 Outpatient SHY GUILLEN CYNTHIA CYNTHIA [id number] [facility] 2023-09-11 11:00:00 2023-09-11 11:00:00 Outpatient YONATAN LORENZO [facility] [id number] [facility] 2023-09-09 00:00:00 2023-09-09 00:00:00 Outpatient CYNTHIA CYNTHIA [id number] [facility] 2023-09-04 00:14:00 2023-09-08 10:51:00 Hospital Encounter ER London Loyola, Selin Welch Bud Selin [facility] [id number] [facility] 2023-09-04 00:14:00 2023-09-08 10:51:00 Inpatient ER FERRER, SELIN BARRAGAN Neurosurger y [id number] [facility] 2023-09-07 18:41:43 2023-09-07 18:41:43 Outpatient NICOLETTE SELIN FERRER [facility] [id number] [facility] 2023-09-03 20:52:00 2023-09-03 23:44:00 emergency [facility] [id number] 2023-09-03 20:52:00 2023-09-03 23:44:00 Emergency [facility] [id number] [facility] 2023-09-02 00:00:00 2023-09-02 00:00:00 Outpatient TIFFANY PUENTE [id number] [facility] 2023-09-01 15:30:00 2023-09-01 15:30:00 Outpatient SUNILDEMETRIUS CYNTHIA MTZ [id number] [facility] 2023-08-19 00:00:00 2023-08-19 00:00:00 Outpatient KETAN CALVILLO [facility] [id number] [facility] 2023-08-13 00:00:00 2023-08-13 00:00:00 Orders Only Ketan Scruggs [facility] [id number] [facility] 2023-08-12 13:49:00 2023-08-12 16:12:00 Emergency X BRIAN BRYAN [facility] ERT [id number] [facility] 2023-08-12 13:49:00 2023-08-12 16:12:00 Emergency Brian Bryan [facility] [id number] [facility] 2023-06-13 03:43:00 2023-06-16 19:45:00 Hospital Encounter ER DodiecarlottaCara richardson Sahar [facility] [id number] [facility] 2023-06-13 03:43:00 2023-06-16 19:45:00 Inpatient ER AYDEE GO [facility] Internal Med [id number] [facility] 2023-06-15 00:00:00 2023-06-15 00:00:00 Orders Only System, Provider Not In [facility] [id number] [facility] 2023-06-13 16:30:06 2023-06-13 16:30:06 Outpatient AYDEE DICKENS [facility] [id number] [facility] 2023-06-13 00:00:2023-06-13 00:00:[address] [facility] [id number] [facility] 2023-06-13 00:00:00 2023-06-13 00:00:00 Travel [facility] [id number] [facility] 2023-06-12 00:00:00 2023-06-12 00:00:[address] [facility] [id number] [facility] 2023-05-28 06:45:00 2023-06-04 17:36:00 Hospital Encounter Adam Brantley [facility] [id number] [facility] 2023-05-28 06:45:00 2023-06-04 17:36:00 Inpatient ADAM BRANTLEY Surgery [id number] [facility] 2023-06-01 09:10:00 2023-06-01 13:00:00 Anesthesia Event Harry Newsome Mujtaba Ahmad [facility] [id number] [facility] 2023-06-01 09:00:00 2023-06-01 11:30:[address] [facility] [id number] [facility] 2023-06-01 09:47:57 2023-06-01 09:47:57 Outpatient ADAM BRANTLEY [facility] [id number] [facility] 2023-06-01 09:40:34 2023-06-01 09:40:34 Outpatient [facility] [id number] [facility] 2023-05-31 09:25:55 2023-05-31 23:59:00 Inpatient ADAM BRANTLEY [facility] [id number] [facility] 2023-05-31 09:00:00 2023-05-31 23:59:00 Hospital Encounter Adam Garcia [facility] [id number] [facility] 2023-05-28 18:15:29 2023-05-28 18:15:29 Outpatient ADAM BRANTLEY [facility] [id number] [facility] 2023-05-28 08:30:00 2023-05-28 11:54:00 An[address] Yue Bui [facility] [id number] [facility] 2023-05-28 11:41:14 2023-05-28 11:41:14 Outpatient ADAM BRANTLEY [facility] [id number] [facility] 2023-05-28 08:30:00 2023-05-28 11:00:[address] [facility] [id number] [facility] 2023-05-28 10:00:47 2023-05-28 10:00:47 Outpatient ADAM BRANTLEY [facility] [id number] [facility] 2023-05-28 00:00:00 2023-05-28 00:00:00 Travel [facility] [id number] [facility] 2023-05-26 09:00:00 2023-05-26 09:00:00 Hospital Encounter Adam Garcia [facility] [id number] [facility] 2023-05-26 00:00:00 2023-05-26 00:00:00 Outpatient ADAM BRANTLEY [facility] [id number] [facility] 2023-05-26 00:00:00 2023-05-26 00:00:00 Outpatient NICOLETTE SLE SLE [id number] [facility] 2023-05-26 00:00:00 2023-05-26 00:00:00 Travel [facility] [id number] [facility] 2023-05-13 11:43:03 2023-05-13 11:43:03 Outpatient SFA BHARAT 1025 Adria Martínez 2023-05-12 00:00:00 2023-05-12 00:00:00 Orders Only Adam Garcia Adi [facility] [id number] [facility] 2023-05-08 14:11:21 2023-05-08 14:11:21 Outpatient [facility] 1020 Adria Martínez 2023-03-29 19:25:00 2023-04-02 20:48:00 Hospital Encounter ER Connie Davey Shireen Kulkarni, Mrinalini Zade [facility] [id number] [facility] 2023-03-29 19:25:00 2023-04-02 20:48:00 Inpatient ER THOMAS LOZOYA [facility] [id number] [facility] 2023-03-31 08:32:56 2023-03-31 00:00:00 Inpatient ER MARIAH ALDRIDGE SLERigoberto [facility] [id number] [facility] 2023-03-30 10:24:12 2023-03-30 23:59:00 Outpatient ER CONNIE DAVEY SLERigoberto [facility] [id number] [facility] 2023-03-30 09:40:00 2023-03-30 23:59:00 Hospital Encounter Connie Davey [facility] [id number] [facility] 2023-03-30 13:46:20 2023-03-30 13:46:20 Outpatient ER MARIAH ALDRIDGE [facility] [id number] [facility] 2023-03-30 13:46:14 2023-03-30 13:46:14 Outpatient ER MARIAH ALDRIDGE SLERigoberto [facility] [id number] [facility] 2023-03-30 10:24:04 2023-03-30 10:24:04 Outpatient ER CONNIE DAVEY SLERigoberto [facility] [id number] [facility] 2023-03-30 00:00:00 2023-03-30 00:00:[address] [facility] [id number] [facility] 2023-03-30 00:00:00 2023-03-30 00:00:00 Travel [facility] [id number] [facility] 2022-12-11 08:56:00 2022-12-11 15:29:00 Emergency X Alfonso ALVARADO [facility] ERT [id number] [facility] 2022-12-11 08:56:00 2022-12-11 15:29:00 Emergency Alfonso Alvarado [facility] 1.2.840.114 350.1.13.10 4.2.7.2.686 [id number] [facility] 2022-11-17 17:25:00 2022-11-18 01:19:00 Emergency X RITCHIE WARREN [facility] ERT [id number] [facility] 2022-11-17 17:25:00 2022-11-18 01:19:00 Emergency Ritchie Warren E [facility] 1.2.840.114 350.1.13.10 4.2.7.2.686 [id number] [facility] 2022-08-28 00:00:00 2022-08-28 00:00:00 Patient Outreach Shy Beckman 1.2.840.114 350.1.13.10 4.2.7.2.686 [id number] [facility] 2022-08-20 00:00:00 2022-08-20 00:00:00 Patient Outreach Shy Beckman 1.2.840.114 350.1.13.10 4.2.7.2.686 [id number] [facility] 2022-08-02 17:30:00 2022-08-03 14:29:00 Hospital Encounter Halima Guan Kinjal M Ibe, Chimkama Ngozi Cynthia [facility] [id number] [facility] 2022-08-02 17:30:00 2022-08-03 14:29:00 Outpatient ER PARRISH WHEATLEY [facility] Neurology [id number] [facility] 2022-08-03 00:00:00 2022-08-03 00:00:[address] [facility] [id number] [facility] 2022-08-02 00:00:00 2022-08-02 00:00:00 Travel [facility] [id number] [facility] 2022-07-31 11:42:00 2022-08-01 21:48:00 Inpatient X LORENZA LOWRY [facility] [id number] [facility] 2022-07-31 11:42:00 2022-08-01 21:48:00 Hospital Encounter Sav Rondon Lorenza [facility] 1.2.840.114 350.1.13.10 4.2.7.2.686 [id number] [facility] 2022-08-01 00:00:00 2022-08-01 00:00:00 Transition of Care Maria Teresa Nicole YANETBubba RODRIGO BENAVIDES 1.2.840.114 350.1.13.10 4.2.7.2.686 [id number] [facility] 2022-07-28 14:41:38 2022-07-28 14:41:38 Outpatient SFA [facility] 9 Adria Martínez 2022-07-28 00:00:00 2022-07-28 00:00:00 Outpatient Visit [id number] 2022-07-24 13:24:40 2022-07-24 13:24:40 Outpatient SFA [facility] 5 Adria F Mauricio 2022-05-23 14:51:01 2022-05-23 14:51:01 Outpatient SFA [facility] 1104 Adria Galan Mauricio 2022-05-23 00:00:00 2022-05-23 00:00:00 Outpatient Visit [id number] 2022-05-04 20:22:00 2022-05-08 14:44:00 Outpatient X CHANTEL BOJORQUEZ [facility] SNS [id number] [facility] 2022-05-04 20:22:00 2022-05-08 14:44:00 [facility] 1.2.840.114 350.1.13.10 4.2.7.2.686 [id number] [facility] 2022-04-13 13:06:00 2022-04-15 15:00:00 [id number] [facility] 2022-04-13 13:06:00 2022-04-15 15:00:00 Hospital Encounter Sapna Vargas Muhammad Zeeshan [facility] 1.20.114 350.1.13.10 4.2.7.2.686 [id number] [facility] 2022-02-19 10:20:00 2022-02-19 10:30:00 Imm/Inj Visit [facility] Jose Santiago [facility] 1..114 350.1.13.10 4.2.7.2.686 [id number] [facility] 2022-02-19 10:20:00 2022-02-19 10:20:00 Outpatient R JOSE PAK [facility] [id number] [facility] 2021-11-23 15:07:00 2021-11-23 17:03:00 Emergency X NICHELLE VIRK [facility] ERT [id number] [facility] 2021-11-23 15:07:00 2021-11-23 17:03:00 Emergency Sav Rondon Folusho F [facility] 1.2840.114 350.1.13.10 4.2.7.2.686 [id number] [facility] 2021-11-21 09:40:00 2021-11-21 09:40:00 Outpatient R [facility] [id number] [facility] 2021-05-24 09:30:00 2021-05-24 09:30:00 Outpatient JOSE MENDOZA [facility] [id number] [facility] 2021-05-24 08:47:51 2021-05-24 08:57:51 Imm/Inj Visit Vaccine, [place] Dangelo Pak [facility] 1..114 350.1.13.10 4.2.7.2.686 [id number] [facility] 2021-05-03 09:40:00 2021-05-03 09:59:35 Outpatient JOSE MENDOZA [facility] [id number] [facility] 2021-05-03 09:17:43 2021-05-03 09:59:35 Imm/Inj Visit Vaccine, [place] Dangelo Pak [facility] 1..114 350.1.13.10 4.2.7.2.686 [id number] [facility] 2021-04-16 00:00:00 2021-04-16 00:00:00 Orders Only Doctor Unassigned, [place] [facility] 1..114 350.1.13.10 4.2.7.2.686 [id number] [facility] 2021-03-17 00:00:00 2021-03-17 00:00:00 Telephone Miky Nava [facility] 1..114 350.1.13.10 4.2.7.2.686 [id number] [facility] 2021-03-16 20:08:00 2021-03-16 23:24:00 Emergency Fabrice Chakraborty [facility] 1.2840.114 350.1.13.10 4.2.7.2.686 [id number] [facility] 2021-03-14 18:59:34 2021-03-14 20:19:13 Urgent Care Lydia Desouza Unknown, Attending [facility] 1..840.114 350.1.13.10 4.2.7.2.686 [id number] [facility] 2021-03-14 19:00:00 2021-03-14 19:00:00 Outpatient R UNKNOWN, ATTENDING [facility] [id number] [facility] 2021-02-19 10:49:00 2021-02-19 14:48:00 Emergency Anali Monroy S [facility] 1..840.114 350.1.13.10 4.2.7.2.686 [id number] [facility] 2019-03-09 00:00:00 2019-03-09 00:00:00 Dick Arcos Yehuda [facility] 1..840.114 350.1.13.10 4.2.7.2.686 [id number] [facility] 2019-03-09 00:00:00 2019-03-09 00:00:00 Dick Arcos Yehuda [place] [address]..840.114 350.1.13.10 4.2.7.2.686 [id number] Results Test Description Test Time Test Comments Results Result Co mments Source BLOOD [id number] 07:00:10* Test Item Value Reference Range Interpretation Comme nts CULTURE (BEAKER) (test code = 1095) No growth in 5 days XR KNEE 3 VIEWS [id number] 09:27:00 [facility] 1970 Sex: FXR KNEE 3 VIEWS LEFT CLINICAL INDICATION: S/p fall COMPARISON: NoneFINDINGS: 3views of the left knee.There is no fracture or malalignment. The femorotibial andfemoropatellar joint spaces are intact. No joint fluid is demonstrated.Surrounding soft tissues are unremarkable. Scattered atheroscleroticvascular calcifications.IMPRESSION: No acute fracture or malalignment of the knee Electronically Signed By: Maxim Sultana09/08/2023 09:29 CDTWorkstation Name: [id number] [id number] 08:53:50* Test Item Value Reference Range Interpretation Comme nts POC-Glucose Meter (test code = 1538) 101 mg/dL 70-110 : TESTED AT [address], [address]: Unit Coordinator/Toppiece Chopper ID = [id number] for Umeh, Akumbu Lab Interpretation (test code = 17461-2) Normal [facility] [id number] 08:53:50* Test Item Value Reference Range Interpretation Comme nts POC-Glucose Meter (test code = 1538) 101 mg/dL 70-110 : TESTED AT [place] [id number] [facility], [address]: Unit Coordinator/Toppiece Chopper ID = [id number] for Umeh, Akumbu Lab Interpretation (test code = 00494-8) Normal [facility] [id number] 08:53:50* Test Item Value Reference Range Interpretation Comme nts POC-Glucose Meter (test code = 1538) 101 mg/dL 70-110 : TESTED AT [place] [address] [facility], [address]: Unit Coordinator/Toppiece Chopper ID = [id number] for Umeh, Akumbu Lab Interpretation (test code = 24381-0) Normal [facility] [id number] 08:53:50* Test Item Value Reference Range Interpretation Comme nts POC-Glucose Meter (test code = 1538) 101 mg/dL 70-110 : TESTED AT [address], [address]: Unit Coordinator/Toppiece Chopper ID = [id number] for Umeh, [place]umbu Lab Interpretation (test code = 73699-5) Normal [facility] [id number] 08:53:50* Test Item Value Reference Range Interpretation Comme nts POC-Glucose Meter (test code = 1538) 101 mg/dL 70-110 : TESTED AT [address], [address]: Unit Coordinator/Toppiece Chopper ID = [id number] for Umeh, [place]umbu Lab Interpretation (test code = 47411-9) Normal [facility] [id number] 08:53:50* Test Item Value Reference Range Interpretation Comme nts POC-Glucose Meter (test code = 1538) 101 mg/dL 70-110 : TESTED AT [address], [address]: Unit Coordinator/Toppiece Chopper ID = [id number] for Umeh, [place]umbu Lab Interpretation (test code = 78457-7) Normal [facility] [id number] 08:53:50* Test Item Value Reference Range Interpretation Comme nts POC-Glucose Meter (test code = 1538) 101 mg/dL 70-110 : TESTED AT [address], [address]: Unit Coordinator/Toppiece Chopper ID = [id number] for Umeh, [place]umbu Lab Interpretation (test code = 57221-1) Normal [facility] [id number] 08:53:50* Test Item Value Reference Range Interpretation Comme nts POC-Glucose Meter (test code = 1538) 101 mg/dL 70-110 : TESTED AT [address], [address]: Unit Coordinator/Toppiece Chopper ID = [id number] for Umeh, [place]umbu Lab Interpretation (test code = 61754-8) Normal [facility]SE [id number] 08:53:50* Test Item Value Reference Range Interpretation Comme nts POC-GLUCOSE METER (BEAKER) (test code = 1538) 101 mg/dL 70-110 : TESTED AT [facility] [address] [facility], [address]: Unit Coordinator/Toppiece Chopper ID = [id number] for Marie Delacruz BASIC METABOLIC [id number] 05:40:45* Test Item Value Reference Range Interpretation [...] GFR is not applicable for dialysis patients Unit Coordinator ID - [id number] 05:40:45* Test Item Value Reference Range Interpretation Comme nts MAGNESIUM (BEAKER) (test cod e = 627) 2.1 mg/dL 1.6-2.6 Unit Coordinator ID - [id number] 05:40:45* Test Item Value Reference Range Interpretation Comme nts PHOSPHORUS (BEAKER) (test co de = 604) 5.0 mg/dL 2.3-4.7 H Unit Coordinator ID - ADMINCBC W/PLT COUNT & AUTO [id number] 04:49:23* Test Item Value Reference Range Interpretation [...] code = 2801) 0.40 % 0.00-1.00 POCT-GLUCOSE [id number] 21:40:23* Test Item Value Reference Range Interpretation Comme nts POC-GLUCOSE METER (BEAKER) (test code = 1538) 144 mg/dL 70-110 H : TESTED AT [facility] [address] [facility] [place], [address]: Unit Coordinator/Toppiece Chopper ID = [id number] for Diana Baeza [id number] 04:05:54* Test Item Value Reference Range Interpretation Comme nts MAGNESIUM (BEAKER) (test code = 627) 2.0 mg/dL 1.6-2.6 Specimen sligh tly hemolyzed Unit Coordinator ID - MADELINE [id number] 04:05:54* Test Item Value Reference Range Interpretation Comme nts PHOSPHORUS (BEAKER) (test code = 604) 4.5 mg/dL 2.3-4.7 Specimen sligh tly hemolyzed Unit Coordinator ID - MADELINE WBASIC METABOLIC [id number] 04:05:54* Test Item Value Reference Range Interpretation [...] GFR is not applicable for dialysis patients Unit Coordinator GEOVANNA CORREA WCBC W/PLT COUNT & AUTO [id number] 03:40:48* Test Item Value Reference Range Interpretation [...] code = 2801) 0.30 % 0.00-1.00 POCT-GLUCOSE [id number] 21:28:35* Test Item Value Reference Range Interpretation Comme nts POC-GLUCOSE METER (BEAKER) (test code = 1538) 127 mg/dL 70-110 H : TESTED AT [address], [address]: Unit Coordinator/Toppiece Chopper ID = [id number] for Rosa Morinbubba POCT-GLUCOSE [id number] 18:49:21* Test Item Value Reference Range Interpretation Comme nts POC-GLUCOSE METER (BEAKER) (test code = 1538) 122 mg/dL 70-110 H : TESTED AT [address], [address]: Unit Coordinator/Toppiece Chopper ID = [id number] for Lauren Santillan POCT-GLUCOSE [id number] 13:27:27* Test Item Value Reference Range Interpretation Comme nts POC-GLUCOSE METER (BEAKER) (test code = 1538) 130 mg/dL 70-110 H : TESTED AT [address], [address]: Unit Coordinator/Toppiece Chopper ID = [id number] for Tyrell Lauren [id number] 09:09:14* Test Item Value Reference Range Interpretation Comme nts MAGNESIUM (BEAKER) (test cod e = 627) 2.2 mg/dL 1.6-2.6 [id number] 09:09:14* Test Item Value Reference Range Interpretation Comme nts PHOSPHORUS (BEAKER) (test co de = 604) 4.8 mg/dL 2.3-4.7 H BASIC METABOLIC [id number] 09:09:14* Test Item Value Reference Range Interpretation [...] is not applicable for dialysis patients POCT-GLUCOSE [id number] 08:33:30* Test Item Value Reference Range Interpretation Comme [facility] POC-GLUCOSE METER (BEAKER) (test code = 1538) 132 mg/dL 70-110 H : TESTED AT [facility] [address] [facility] [place], [address]: Unit Coordinator/Toppiece Chopper ID = [id number] for Lauren Santillan CBC W/PLT COUNT & AUTO [id number] 05:47:59* Test Item Value Reference Range Interpretation [...] code = 2801) 0.40 % 0.00-1.00 POCT-GLUCOSE [id number] 21:35:37* Test Item Value Reference Range Interpretation Comme nts POC-GLUCOSE METER (BEAKER) (test code = 1538) 129 mg/dL 70-110 H : TESTED AT [facility] [address] [facility] [place], [address]: Unit Coordinator/Toppiece Chopper ID = [id number] for Ryan Morin MR BRAIN WITH & WITHOUT IV [id number] 15:49:58 [facility] : 1970 Sex: FMR BRAIN [...] Signed By: Zeinab Dempsey09/05/2023 15:53 CDTWorkstation Name: [id number] METER 2023-09-05 08:34:25* Test Item Value Reference Range Interpretation Comme [facility] POC-GLUCOSE METER (BEAKER) (test code = 1538) 115 mg/dL 70-110 H : TESTED AT [facility] [address] [facility] [place], [address]: Unit Coordinator/Toppiece Chopper ID = [id number] for DOMINGA AMADOR BASIC METABOLIC [id number] 06:06:56* Test Item Value Reference Range Interpretation [...] GFR is not applicable for dialysis patients Unit Coordinator ID - [id number] 06:06:56* Test Item Value Reference Range Interpretation Comme nts MAGNESIUM (BEAKER) (test cod e = 627) 2.2 mg/dL 1.6-2.6 Unit Coordinator ID - [id number] 06:06:56* Test Item Value Reference Range Interpretation Comme nts PHOSPHORUS (BEAKER) (test co de = 604) 3.8 mg/dL 2.3-4.7 Unit Coordinator ID - ADMINCBC W/PLT COUNT & AUTO [id number] 05:29:32* Test Item Value Reference Range Interpretation [...] code = 2801) 0.50 % 0.00-1.00 POCT-GLUCOSE [id number] 04:55:18* Test Item Value Reference Range Interpretation Comme nts POC-GLUCOSE METER (BEAKER) (test code = 1538) 99 mg/dL 70-110 : TESTED AT [facility] [address] [facility], [address]: Unit Coordinator/Toppiece Chopper ID = [id number] for Ryan Morin POCT-GLUCOSE [id number] 21:49:23* Test Item Value Reference Range Interpretation Comme nts POC-GLUCOSE METER (BEAKER) (test code = 1538) 124 mg/dL 70-110 H : TESTED AT [facility] [address] [facility], [address]: Unit Coordinator/Toppiece Chopper ID = [id number] for Ryan Morin POCT-GLUCOSE [id number] 15:55:53* Test Item Value Reference Range Interpretation Comme nts POC-GLUCOSE METER (BEAKER) (test code = 1538) 126 mg/dL 70-110 H : TESTED AT [facility] [address] [facility], [address]: Unit Coordinator/Toppiece Chopper ID = [id number] for Tramaine Daniels [id number] 12:37:56* Test Item Value Reference Range Interpretation Comme nts PROCALCITONIN (BEAKER) (test code = 3036) < ng/mL <0.05 SEPSIS RISK (ng/mL)Low: 0.05-0.50Intermediate: 0.51-2.00High: >=2.01SARS- CoV2/Influenza/RSV [id number] 12:18:09* Test Item Value Reference Range Interpretation Comments SARS-COV2/RT-PCR (test code = 54922-7) Negative Negative The SARS-CoV-2 target nucleic acids [...] provider. Influenza A RT-PCR (test code = 44157-4) Negative Negative The Flu A target nucleic acids are not detected in this specimen. Influenza B RT-PCR (test code = 39732-1) Negative Negative The Flu B target nucleic acids are not detected in this specimen. RSV by RT-PCR (test code = 48787-9) Negative Negative The RSV target nucleic acids [...] the Act. Fact Sheet for Healthcare Providers:https://w AlmondNet/Docu ments/Xpert%20Xpres s%20SARS%20CoV-2/Fa ct%20Sheets/302-390 2%75ACRR-ABH-9%20HE ALTHCARE%20PROVIDER S%20FACT%20SHEET.pd f Fact Sheet for Healthcare Patients:https://maria elena Milo/Docum ents/Xpert%20Xpress %20SARS%20Cov-2/Fac t%20Sheets/302-3801 %65ATRU-NSQ-1%20PAT IENT%20FACT%20SHEET .pdf Lab Interpretation (test code = 45741-5) [facility] [id number] 12:18:09* Test Item Value Reference Range Interpretation Comments SARS-COV2/RT-PCR (test code = 05824-8) Negative Negative The SARS-CoV-2 target nucleic acids [...] provider. Influenza A RT-PCR (test code = 87556-3) Negative Negative The Flu A target nucleic acids are not detected in this specimen. Influenza B RT-PCR (test code = 92993-0) Negative Negative The Flu B target nucleic acids are not detected in this specimen. RSV by RT-PCR (test code = 63483-6) Negative Negative The RSV target nucleic acids [...] SARS-CoV-2/Flu/RSV by their healthcare provider. Results from [facility] Xpert Xpress SARS-CoV-2/Flu/RSV test should [...] the Act. Fact Sheet for Healthcare Providers:https://w [employer]mondNet/Docu ments/Xpert%20Xpres s%20SARS%20CoV-2/Fa ct%20Sheets/302-390 2%20LPLN-KQJ-8%20HE ALTHCARE%20PROVIDER S%20FACT%20SHEET.pd f Fact Sheet for Healthcare Patients:https://Zenkars/Docum ents/Xpert%20Xpress %20SARS%20Cov-2/Fac t%20Sheets/302-3801 %44SXFS-BDJ-1%20PAT IENT%20FACT%20SHEET .pdf Lab Interpretation (test code = 74523-5) [facility] [id number] 12:18:09* Test Item Value Reference Range Interpretation Comments SARS-COV2/RT-PCR (test code = 56636-3) Negative Negative The SARS-CoV-2 target nucleic acids [...] provider. Influenza A RT-PCR (test code = 81120-7) Negative Negative The Flu A target nucleic acids are not detected in this specimen. Influenza B RT-PCR (test code = 51985-1) Negative Negative The Flu B target nucleic acids are not detected in this specimen. RSV by RT-PCR (test code = 85645-7) Negative Negative The RSV target nucleic acids [...] SARS-CoV-2/Flu/RSV by their healthcare provider. Results from [facility] Xpert Xpress SARS-CoV-2/Flu/RSV test should [...] the Act. Fact Sheet for Healthcare Providers:https://w [email or web address]/Docu ments/Xpert%20Xpres s%20SARS%20CoV-2/Fa ct%20Sheets/302-390 2%98KNTP-GZB-3%20HE ALTHCARE%20PROVIDER S%20FACT%20SHEET.pd f Fact Sheet for Healthcare Patients:https://ww w.[employer]/Docum ents/Xpert%20Xpress %20SARS%20Cov-2/Fac t%20Sheets/302-3801 %11BSUO-OZQ-4%20PAT IENT%20FACT%20SHEET .pdf Lab Interpretation (test code = 80986-1) [facility] [id number] 12:18:09* Test Item Value Reference Range Interpretation Comments SARS-COV2/RT-PCR (test code = 78486-8) Negative Negative The SARS-CoV-2 target nucleic acids [...] provider. Influenza A RT-PCR (test code = 08228-0) Negative Negative The Flu A target nucleic acids are not detected in this specimen. Influenza B RT-PCR (test code = 84298-8) Negative Negative The Flu B target nucleic acids are not detected in this specimen. RSV by RT-PCR (test code = 03231-2) Negative Negative The RSV target nucleic acids [...] SARS-CoV-2/Flu/RSV by their healthcare provider. Results from [facility] Xpert Xpress SARS-CoV-2/Flu/RSV test should [...] the Act. Fact Sheet for Healthcare Providers:https://w [employer]/Docu ments/Xpert%20Xpres s%20SARS%20CoV-2/Fa ct%20Sheets/302-390 2%12LNQV-ASR-7%20HE ALTHCARE%20PROVIDER S%20FACT%20SHEET.pd f Fact Sheet for Healthcare Patients:https://[employer]/Docum ents/Xpert%20Xpress %20SARS%20Cov-2/Fac t%20Sheets/302-3801 %42SQUN-JCV-6%20PAT IENT%20FACT%20SHEET .pdf Lab Interpretation (test code = 63813-0) [facility] [place] [id number] 12:18:09* Test Item Value Reference Range Interpretation Comments SARS-COV2/RT-PCR (test code = 58499-4) Negative Negative The SARS-CoV-2 target nucleic acids [...] provider. Influenza A RT-PCR (test code = 72358-9) Negative Negative The Flu A target nucleic acids are not detected in this specimen. Influenza B RT-PCR (test code = 27934-5) Negative Negative The Flu B target nucleic acids are not detected in this specimen. RSV by RT-PCR (test code = 24971-3) Negative Negative The RSV target nucleic acids [...] the Act. Fact Sheet for Healthcare Providers:https://w AlmondNet/Docu ments/Xpert%20Xpres s%20SARS%20CoV-2/Fa ct%20Sheets/302-390 2%28BEVX-ZBC-1%20HE ALTHCARE%20PROVIDER S%20FACT%20SHEET.pd f Fact Sheet for Healthcare Patients:https://ww Milo/Docum ents/Xpert%20Xpress %20SARS%20Cov-2/Fac t%20Sheets/302-3801 %88EYWM-AKD-6%20PAT IENT%20FACT%20SHEET .pdf Lab Interpretation (test code = 36105-1) [facility] [place] [id number] 12:18:09* Test Item Value Reference Range Interpretation Comments SARS-COV2/RT-PCR (test code = 15876-1) Negative Negative The SARS-CoV-2 target nucleic acids [...] provider. Influenza A RT-PCR (test code = 69156-9) Negative Negative The Flu A target nucleic acids are not detected in this specimen. Influenza B RT-PCR (test code = 01652-4) Negative Negative The Flu B target nucleic acids are not detected in this specimen. RSV by RT-PCR (test code = 86561-2) Negative Negative The RSV target nucleic acids [...] the Act. Fact Sheet for Healthcare Providers:https://w AlmondNet/Docu ments/Xpert%20Xpres s%20SARS%20CoV-2/Fa ct%20Sheets/302-390 2%50MVLH-XZH-5%20HE ALTHCARE%20PROVIDER S%20FACT%20SHEET.pd f Fact Sheet for Healthcare Patients:https://maria elena Milo/Docum ents/Xpert%20Xpress %20SARS%20Cov-2/Fac t%20Sheets/302-3801 %89WYGK-XBJ-1%20PAT IENT%20FACT%20SHEET .pdf Lab Interpretation (test code = 08014-8) [facility] [place] [id number] 12:18:09* Test Item Value Reference Range Interpretation Comments SARS-COV2/RT-PCR (test code = 28489-2) Negative Negative The SARS-CoV-2 target nucleic acids [...] provider. Influenza A RT-PCR (test code = 27347-2) Negative Negative The Flu A target nucleic acids are not detected in this specimen. Influenza B RT-PCR (test code = 88803-4) Negative Negative The Flu B target nucleic acids are not detected in this specimen. RSV by RT-PCR (test code = 43245-6) Negative Negative The RSV target nucleic acids [...] SARS-CoV-2/Flu/RSV by their healthcare provider. Results from [facility] Xpert Xpress SARS-CoV-2/Flu/RSV test should [...] the Act. Fact Sheet for Healthcare Providers:https://w AlmondNet/Docu ments/Xpert%20Xpres s%20SARS%20CoV-2/Fa ct%20Sheets/302-390 2%80OEIS-PKX-2%20HE ALTHCARE%20PROVIDER S%20FACT%20SHEET.pd f Fact Sheet for Healthcare Patients:https://maria elena Milo/Docum ents/Xpert%20Xpress %20SARS%20Cov-2/Fac t%20Sheets/302-3801 %91YOJK-VYU-3%20PAT IENT%20FACT%20SHEET .pdf Lab Interpretation (test code = 77520-6) [facility] [id number] 12:18:09* Test Item Value Reference Range Interpretation Comments SARS-COV2/RT-PCR (test code = 23901-5) Negative Negative The SARS-CoV-2 target nucleic acids [...] provider. Influenza A RT-PCR (test code = 22882-6) Negative Negative The Flu A target nucleic acids are not detected in this specimen. Influenza B RT-PCR (test code = 57377-7) Negative Negative The Flu B target nucleic acids are not detected in this specimen. RSV by RT-PCR (test code = 76818-8) Negative Negative The RSV target nucleic acids [...] SARS-CoV-2/Flu/RSV by their healthcare provider. Results from [facility] Xpert Xpress SARS-CoV-2/Flu/RSV test should [...] Act. Fact Sheet for Healthcare Providers:https://w maria elena.Fancred.Lover.ly/Docu ments/Xpert%20Xpres s%20SARS%20CoV-2/Fa ct%20Sheets/302-390 2%49YTWF-UID-1%20HE ALTHCARE%20PROVIDER S%20FACT%20SHEET.pd f Fact Sheet for Healthcare Patients:https://ww w.Charitas/Docum ents/Xpert%20Xpress %20SARS%20Cov-2/Fac t%20Sheets/3023801 %34PEXV-ZBR-4%20PAT IENT%20FACT%20SHEET .pdf Lab Interpretation (test code = 88585-2) [facility] [place]FLUEN[place]/RSV [id number] 12:18:09* Test Item Value Reference Range Interpretation Comme nts SARS-COV2/RT-PCR (test code = 5124333) Negative Negative The SARS-CoV-2 t arget nucleic [...] provider. INFLUENZA A RT-PCR (test code = 7741103) Negative Negative The Flu A target nucleic acids are not detected in this specimen. INFLUENZA B RT-PCR (test code = 0782680) Negative Negative The Flu B target nucleic acids are not detected in this specimen. RSV RT-PCR (test code = 7001860) Negative Negative The RSV target n ucleic [...] SARS-CoV-2/Flu/RSV by their healthcare provider. Results from [facility] Xpert Xpress SARS-CoV-2/Flu/RSV test should [...] 564(g) of the Act.Fact Sheet for Healthcare Providers:https://www.Charitas/Documents/Xpert%20Xpress%20SARS%20CoV-2/Fact%2 0Sheets/3023902%91AWAN-EVS-1%20HEALTHCARE%20PROVIDERS%20FACT%20SHEET.pdfFact Sheet for Healthcare Patients:https://ww w.Charitas/Documents/Xpert%20Xpress%20SARS%20Cov-2/Fact%20Sheets/302-3801%20S ARS-COV-2%20PATIENT%20FACT%20SHEET.pdfPOCT-GLUCOSE [id number] 11:08:35* Test Item Value Reference Range Interpretation Comme nts POC-GLUCOSE METER (BEAKER) (test code = 1538) 111 mg/dL 70-110 H : TESTED AT [address], [address]: Unit Coordinator/Toppiece Chopper ID = [id number] for JeremiahTramaine POCT-GLUCOSE [id number] 08:16:42* Test Item Value Reference Range Interpretation Comme nts POC-GLUCOSE METER (BEAKER) (test code = 1538) 108 mg/dL 70-110 : TESTED AT [facility] [address], [address]: Unit Coordinator/Toppiece Chopper ID = [id number] for Beata Vargas MR CERVICAL SPINE WITHOUT IV [id number] 07:58:49 [facility] 1970 Sex: FMR [...] spine.Posterior ligament ossifications at the calcifications at D91-Q77hrxxohm moderate spinal canal stenosisPosterior disc osteophyte at the T11-T12 level causing mild spinal canalstenosisThe spinal cord is normal in caliber and signal intensity. There is no significant foraminal or spinal canal stenosis.2.1 x 2.3 cm left adrenal nodule, incompletely characterizedParaspinal soft tissues are unremarkable.Lumbar spine:Postoperative changes from posterior decompression at the L3 and R9qmbfkk. A 1.3 x 1.5 cm (AP by [...] Signed By: Maxim Sultana09/04/2023 08:00 CDTWorkstation Name: [id number] THORACIC SPINE WITHOUT IV [id number] 07:58:49 [facility] : 1970 Sex: FMR [...] spine.Posterior ligament ossifications at the calcifications at S89-N17mjxtfnu moderate spinal canal stenosisPosterior disc osteophyte at the T11-T12 level causing mild spinal canalstenosisThe spinal cord is normal in caliber and signal intensity. There is no significant foraminal or spinal canal stenosis.2.1 x 2.3 cm left adrenal nodule, incompletely characterizedParaspinal soft tissues are unremarkable.Lumbar spine:Postoperative changes from posterior decompression at the L3 and B1maqnym. A 1.3 x 1.5 cm (AP by [...] Signed By: Maxim Sultana09/04/2023 08:00 CDTWorkstation Name: [id number] LUMBAR SPINE WITHOUT IV [id number] 07:58:49 [facility] 1970 Sex: [...] spine.Posterior ligament ossifications at the calcifications at I34-R30shmlmiu moderate spinal canal stenosisPosterior disc osteophyte at the T11-T12 level causing mild spinal canalstenosisThe spinal cord is normal in caliber and signal intensity. There is no significant foraminal or spinal canal stenosis.2.1 x 2.3 cm left adrenal nodule, incompletely characterizedParaspinal soft tissues are unremarkable.Lumbar spine:Postoperative changes from posterior decompression at the L3 and C6echugs. A 1.3 x 1.5 cm (AP by [...] Signed By: Maxim Sultana09/04/2023 08:00 CDTWorkstation Name: [id number] 2023-09-04 07:46:14* Test Item Value Reference Range Interpretation Comme nts FERRITIN (BEAKER) (test code = 361) 31.77 ng/mL 5.00-275.00 Unit Coordinator ID - hgIRON, TIBC, % SAT. (WITHOUT FERRITIN)2023-09-04 07:24:52* Test Item Value Reference Range Interpretation Comme nts IRON (BEAKER) (test code = 547) 22.0 ug/dL 40.0-160.0 L TOTAL IRON BINDING CAPACITY (BEAKER) (test code = 769) 369 ug/dL 250-450 IRON % SATURATION (2) (BEAKE R) (test code = 2590) 6 % 20-55 L Unit Coordinator ID - hgCT LUMBAR SPINE WITHOUT IV [id number] 05:42:45 [facility] 1970 Sex: FEXAM: [...] spine:Bones/alignment: Age- indeterminate nondisplaced fracture of the X4ywtwddrrg elements, predominantly i nvolving the lamina and [...] Signed By: Suzan Weaver09/04/2023 05:45 CDTWorkstation Name: [id number] THORACIC SPINE WITHOUT IV [id number] 05:42:45 [facility] HEATHERGRACIELA MCCABE : 1970 Sex: FEXAM: CT THORACIC SPINE [...] spine:Bones/alignment: Age- indeterminate nondisplaced fracture of the G1urxhfnfhz elements, predominantly i nvolving the lamina and [...] Signed By: Suzan Weaver09/04/2023 05:45 CDTWorkstation Name: [id number] 04:44:34* Test Item Value Reference Range Interpretation Comme nts FIBRINOGEN LEVEL (BEAKER) (t est code = 658) 410 mg/dl 225-434 Urinalysis without Lbkoytfzybc6041-21-45 03:58:52* Test Item Value Reference Range Interpretation Comme nts Color, UA (test code = 5778-6) Light Yellow Clarity, UA (test code = 5767-9) Hazy Specific Hum[place], UA (test code = 5811-5) 1.017 1.001-1.035 pH, UA (test code = 5803-2) 6.0 5.0-8.0 Protein, UA (test code = 16481-4) 10 mg/dL Negative A Glucose, UA (test code = 365) Negative Negative Ketones, UA (test code = 2514-8) Trace Negative A Bilirubin, UA (test code = 55587-5) Negative Negative Blood, UA (test code = 31540-9) Trace Negative A Nitrite, UA (test code = 5802-4) Negative Negative Leukocytes, UA (test code = 5799-2) Negative Negative Urobilinogen, UA (test code = 09967-3) 0.2 0.2-1.0 Specimen Source (test code = 2795) LYNDSAY (test code = LYNDSAY) Unit Coordinator ID - [auto]Unit Coordinator ID - tech Lab Interpretation (test code = 89299-6) [facility] Fodmvgdknpp4959-60-45 03:58:52* Test Item Value Reference Range Interpretation Comme nts Color, UA (test code = 5778-6) Light Yellow Clarity, UA (test code = 5767-9) Hazy Specific Humpt[place], UA (test code = 5811-5) 1.017 1.001-1.035 pH, UA (test code = 5803-2) 6.0 5.0-8.0 Protein, UA (test code = 56052-7) 10 mg/dL Negative A Glucose, UA (test code = 365) Negative Negative Ketones, UA (test code = 2514-8) Trace Negative A Bilirubin, UA (test code = 24644-3) Negative Negative Blood, UA (test code = 22591-8) Trace Negative A Nitrite, UA (test code = 5802-4) Negative Negative Leukocytes, UA (test code = 5799-2) Negative Negative Urobilinogen, UA (test code = 14146-5) 0.2 0.2-1.0 Specimen Source (test code = 2795) LYNDSAY (test code = LYNDSAY) Unit Coordinator ID - [auto]Unit Coordinator ID - tech Lab Interpretation (test code = 52415-0) [facility] Czcaitoaqwm1285-57-13 03:58:52* Test Item Value Reference Range Interpretation Comme nts Color, UA (test code = 5778-6) Light Yellow Clarity, UA (test code = 5767-9) Hazy Specific Hum[place], UA (test code = 5811-5) 1.017 1.001-1.035 pH, UA (test code = 5803-2) 6.0 5.0-8.0 Protein, UA (test code = 23548-2) 10 mg/dL Negative A Glucose, UA (test code = 365) Negative Negative Ketones, UA (test code = 2514-8) Trace Negative A Bilirubin, UA (test code = 80870-9) Negative Negative Blood, UA (test code = 40189-1) Trace Negative A Nitrite, UA (test code = 5802-4) Negative Negative Leukocytes, UA (test code = 5799-2) Negative Negative Urobilinogen, UA (test code = 58376-1) 0.2 0.2-1.0 Specimen Source (test code = 2795) LYNDSAY (test code = LYNDSAY) Unit Coordinator ID - [auto]Unit Coordinator ID - tech Lab Interpretation (test code = 67886-4) [facility] Ekkefjgvhay1493-11-82 03:58:52* Test Item Value Reference Range Interpretation Comme nts Color, UA (test code = 5778-6) Light Yellow Clarity, UA (test code = 5767-9) Hazy Specific Humptul[place], UA (test code = 5811-5) 1.017 1.001-1.035 pH, UA (test code = 5803-2) 6.0 5.0-8.0 Protein, UA (test code = 63234-6) 10 mg/dL Negative A Glucose, UA (test code = 365) Negative Negative Ketones, UA (test code = 2514-8) Trace Negative A Bilirubin, UA (test code = 04883-9) Negative Negative Blood, UA (test code = 72183-9) Trace Negative A Nitrite, UA (test code = 5802-4) Negative Negative Leukocytes, UA (test code = 5799-2) Negative Negative Urobilinogen, UA (test code = 96951-4) 0.2 0.2-1.0 Specimen Source (test code = 2795) LYNDSAY (test code = LYNDSAY) Unit Coordinator ID - [auto]Unit Coordinator ID - tech Lab Interpretation (test code = 73928-6) [facility] Sybsniecvtk3201-32-64 03:58:52* Test Item Value Reference Range Interpretation Comme nts Color, UA (test code = 5778-6) Light Yellow Clarity, UA (test code = 5767-9) Hazy Specific Humptul[place], UA (test code = 5811-5) 1.017 1.001-1.035 pH, UA (test code = 5803-2) 6.0 5.0-8.0 Protein, UA (test code = 92913-8) 10 mg/dL Negative A Glucose, UA (test code = 365) Negative Negative Ketones, UA (test code = 2514-8) Trace Negative A Bilirubin, UA (test code = 67805-3) Negative Negative Blood, UA (test code = 75594-3) Trace Negative A Nitrite, UA (test code = 5802-4) Negative Negative Leukocytes, UA (test code = 5799-2) Negative Negative Urobilinogen, UA (test code = 86926-4) 0.2 0.2-1.0 Specimen Source (test code = 2795) LYNDSAY (test code = LYNDSAY) Unit Coordinator ID - [auto]Unit Coordinator ID - tech Lab Interpretation (test code = 58033-9) [facility]normal [facility] without Rzaiqtsftzu0244-22-35 03:58:52* Test Item Value Reference Range Interpretation Comme nts Color, UA (test code = 5778-6) Light Yellow Clarity, UA (test code = 5767-9) Hazy Specific Hum[place], UA (test code = 5811-5) 1.017 1.001-1.035 pH, UA (test code = 5803-2) 6.0 5.0-8.0 Protein, UA (test code = 12778-9) 10 mg/dL Negative A Glucose, UA (test code = 365) Negative Negative Ketones, UA (test code = 2514-8) Trace Negative A Bilirubin, UA (test code = 33132-1) Negative Negative Blood, UA (test code = 82233-6) Trace Negative A Nitrite, UA (test code = 5802-4) Negative Negative Leukocytes, UA (test code = 5799-2) Negative Negative Urobilinogen, UA (test code = 58829-5) 0.2 0.2-1.0 Specimen Source (test code = 2795) LYNDSAY (test code = LYNDSAY) Unit Coordinator ID - [auto]Unit Coordinator ID - tech Lab Interpretation (test code = 46220-0) [facility] Gbkfueqpuhf3780-17-27 03:58:52* Test Item Value Reference Range Interpretation Comme nts Color, UA (test code = 5778-6) Light Yellow Clarity, UA (test code = 5767-9) Hazy Specific [place], UA (test code = 5811-5) 1.017 1.001-1.035 pH, UA (test code = 5803-2) 6.0 5.0-8.0 Protein, UA (test code = 85130-0) 10 mg/dL Negative A Glucose, UA (test code = 365) Negative Negative Ketones, UA (test code = 2514-8) Trace Negative A Bilirubin, UA (test code = 45885-7) Negative Negative Blood, UA (test code = 40572-9) Trace Negative A Nitrite, UA (test code = 5802-4) Negative Negative Leukocytes, UA (test code = 5799-2) Negative Negative Urobilinogen, UA (test code = 36711-7) 0.2 0.2-1.0 Specimen Source (test code = 2795) LYNDSAY (test code = LYNDSAY) Unit Coordinator ID - [auto]Unit Coordinator ID - tech Lab Interpretation (test code = 71099-0) [facility]normal [facility] Center[facility] without Emdtkzvevgd5149-66-19 03:58:52* Test Item Value Reference Range Interpretation Comme nts Color, UA (test code = 5778-6) Light Yellow Clarity, UA (test code = 5767-9) Hazy Specific Hum[place], UA (test code = 5811-5) 1.017 1.001-1.035 pH, UA (test code = 5803-2) 6.0 5.0-8.0 Protein, UA (test code = 86566-6) 10 mg/dL Negative A Glucose, UA (test code = 365) Negative Negative Ketones, UA (test code = 2514-8) Trace Negative A Bilirubin, UA (test code = 13954-4) Negative Negative Blood, UA (test code = 41299-3) Trace Negative A Nitrite, UA (test code = 5802-4) Negative Negative Leukocytes, UA (test code = 5799-2) Negative Negative Urobilinogen, UA (test code = 19630-3) 0.2 0.2-1.0 Specimen Source (test code = 2795) LYNDSAY (test code = LYNDSAY) Unit Coordinator ID - [auto]Unit Coordinator ID - tech Lab Interpretation (test code = 39489-1) [facility]normal [facility] CenterURINALYS[facility] WITHOUT [id number] 03:58:52* Test Item Value Reference Range Interpretation [...] 0.2 0.2-1.0 SOURCE(BEAKER) (test code = 2795) Unit Coordinator ID - [auto]Unit Coordinator ID - techCBC W/PLT COUNT & AUTO [...] 2801) 0.70 % 0.00-1.00 Rapid drug screen, [id number] 02:20:15* Test Item Value Reference Range Interpretation Comme nts Barbiturate Screen (test code = 22303-4) Negative Negative Benzodiazepine Screen (test code = 51966-2) Negative Negative Cocaine (Metab.) Screen (test code = 3397-7) Positive Negative A Methadone Screen (test code = 28052-6) Negative Negative Opiate Screen (test code = 66676-0) Negative Negative Cannabinoid Screen (test code = 43873-5) Positive Negative A Amph/Methamph Screen (test code = 60858-5) Negative Negative Phencyclidine Screen (test code = 97717-0) Negative Negative pH, UA (test code = 5803-2) 6.0 5.0-8.0 LYNDSAY (test code = LYNDSAY) DRUG CUTOFF CONC.Cocaine 300 ng/mL Cannabinoid 50 ng/mLBenzodiazepine 200 ng/mLBarbiturate 200 ng/mLPhencyclidine 25 ng/mLOpiate 300 ng/mLMethadone 300 ng/mLAmphetamine/ 1000 ng/mL Methamphetamine This assay provides an unconfirmed qualitative test result for the clinical management of patients in emergency situations. Chain of custody not maintained. Some irnz-ajt-iiknnad medications, as well as adulterants, may cause inaccurate results. Clinical correlation should be applied. A more comprehensive drug screen or confirmation of a detected drug may be performed upon request.Unit Coordinator ID - ADMIN Lab Interpretation (test code = 98618-8) [facility]normal [facility] CenterR[facility], [id number] 02:20:15* Test Item Value Reference Range Interpretation Comme nts Barbiturate Screen (test code = 76817-6) Negative Negative Benzodiazepine Screen (test code = 80016-3) Negative Negative Cocaine (Metab.) Screen (test code = 3397-7) Positive Negative A Methadone Screen (test code = 50212-2) Negative Negative Opiate Screen (test code = 03467-9) Negative Negative Cannabinoid Screen (test code = 28978-2) Positive Negative A Amph/Methamph Screen (test code = 93169-0) Negative Negative Phencyclidine Screen (test code = 35034-4) Negative Negative pH, UA (test code = 5803-2) 6.0 5.0-8.0 LYNDSAY (test code = LYNDSAY) DRUG CUTOFF CONC.Cocaine 300 ng/mL Cannabinoid 50 ng/mLBenzodiazepine 200 ng/mLBarbiturate 200 ng/mLPhencyclidine 25 ng/mLOpiate 300 ng/mLMethadone 300 ng/mLAmphetamine/ 1000 ng/mL Methamphetamine This assay provides an unconfirmed qualitative test result for the clinical management of patients in emergency situations. Chain of custody not maintained. Some uafn-sgn-arjhmar medications, as well as adulterants, may cause inaccurate results. Clinical correlation should be applied. A more comprehensive drug screen or confirmation of a detected drug may be performed upon request.Unit Coordinator ID - ADMIN Lab Interpretation (test code = 12155-5) [facility]normal [facility], [id number] 02:20:15* Test Item Value Reference Range Interpretation Comme nts Barbiturate Screen (test code = 47280-0) Negative Negative Benzodiazepine Screen (test code = 94040-6) Negative Negative Cocaine (Metab.) Screen (test code = 3397-7) Positive Negative A Methadone Screen (test code = 26263-3) Negative Negative Opiate Screen (test code = 77989-0) Negative Negative Cannabinoid Screen (test code = 76064-5) Positive Negative A Amph/Methamph Screen (test code = 41872-9) Negative Negative Phencyclidine Screen (test code = 77463-0) Negative Negative pH, UA (test code = 5803-2) 6.0 5.0-8.0 LYNDSAY (test code = LYNDSAY) DRUG CUTOFF CONC.Cocaine 300 ng/mL Cannabinoid 50 ng/mLBenzodiazepine 200 ng/mLBarbiturate 200 ng/mLPhencyclidine 25 ng/mLOpiate 300 ng/mLMethadone 300 ng/mLAmphetamine/ 1000 ng/mL Methamphetamine This assay provides an unconfirmed qualitative test result for the clinical management of patients in emergency situations. Chain of custody not maintained. Some oflx-fpm-jxromnp medications, as well as adulterants, may cause inaccurate results. Clinical correlation should be applied. A more comprehensive drug screen or confirmation of a detected drug may be performed upon request.Unit Coordinator ID - ADMIN Lab Interpretation (test code = 60046-1) [facility]normal [facility] Center[facility], [id number] 02:20:15* Test Item Value Reference Range Interpretation Comme nts Barbiturate Screen (test code = 06175-1) Negative Negative Benzodiazepine Screen (test code = 62020-3) Negative Negative Cocaine (Metab.) Screen (test code = 3397-7) Positive Negative A Methadone Screen (test code = 78314-3) Negative Negative Opiate Screen (test code = 56427-6) Negative Negative Cannabinoid Screen (test code = 98850-1) Positive Negative A Amph/Methamph Screen (test code = 59548-8) Negative Negative Phencyclidine Screen (test code = 51719-4) Negative Negative pH, UA (test code = 5803-2) 6.0 5.0-8.0 LYNDSAY (test code = LYNDSAY) DRUG CUTOFF CONC.Cocaine 300 ng/mL Cannabinoid 50 ng/mLBenzodiazepine 200 ng/mLBarbiturate 200 ng/mLPhencyclidine 25 ng/mLOpiate 300 ng/mLMethadone 300 ng/mLAmphetamine/ 1000 ng/mL Methamphetamine This assay provides an unconfirmed qualitative test result for the clinical management of patients in emergency situations. Chain of custody not maintained. Some hntp-iul-hleqwnl medications, as well as adulterants, may cause inaccurate results. Clinical correlation should be applied. A more comprehensive drug screen or confirmation of a detected drug may be performed upon request.Unit Coordinator ID - ADMIN Lab Interpretation (test code = 53210-9) [facility]normal [facility] CenterR[facility], [id number] 02:20:15* Test Item Value Reference Range Interpretation Comme nts Barbiturate Screen (test code = 13992-5) Negative Negative Benzodiazepine Screen (test code = 69020-9) Negative Negative Cocaine (Metab.) Screen (test code = 3397-7) Positive Negative A Methadone Screen (test code = 20601-4) Negative Negative Opiate Screen (test code = 95083-8) Negative Negative Cannabinoid Screen (test code = 30411-7) Positive Negative A Amph/Methamph Screen (test code = 05114-4) Negative Negative Phencyclidine Screen (test code = 29504-1) Negative Negative pH, UA (test code = 5803-2) 6.0 5.0-8.0 LYNDSAY (test code = LYNDSAY) DRUG CUTOFF CONC.Cocaine 300 ng/mL Cannabinoid 50 ng/mLBenzodiazepine 200 ng/mLBarbiturate 200 ng/mLPhencyclidine 25 ng/mLOpiate 300 ng/mLMethadone 300 ng/mLAmphetamine/ 1000 ng/mL Methamphetamine This assay provides an unconfirmed qualitative test result for the clinical management of patients in emergency situations. Chain of custody not maintained. Some rfxq-xsh-jpqhejg medications, as well as adulterants, may cause inaccurate results. Clinical correlation should be applied. A more comprehensive drug screen or confirmation of a detected drug may be performed upon request.Unit Coordinator ID - ADMIN Lab Interpretation (test code = 48755-1) [facility]normal [facility], [id number] 02:20:15* Test Item Value Reference Range Interpretation Comme nts Barbiturate Screen (test code = 62593-6) Negative Negative Benzodiazepine Screen (test code = 09837-3) Negative Negative Cocaine (Metab.) Screen (test code = 3397-7) Positive Negative A Methadone Screen (test code = 39599-1) Negative Negative Opiate Screen (test code = 18456-7) Negative Negative Cannabinoid Screen (test code = 20466-3) Positive Negative A Amph/Methamph Screen (test code = 60033-7) Negative Negative Phencyclidine Screen (test code = 33890-4) Negative Negative pH, UA (test code = 5803-2) 6.0 5.0-8.0 LYNDSAY (test code = LYNDSAY) DRUG CUTOFF CONC.Cocaine 300 ng/mL Cannabinoid 50 ng/mLBenzodiazepine 200 ng/mLBarbiturate 200 ng/mLPhencyclidine 25 ng/mLOpiate 300 ng/mLMethadone 300 ng/mLAmphetamine/ 1000 ng/mL Methamphetamine This assay provides an unconfirmed qualitative test result for the clinical management of patients in emergency situations. Chain of custody not maintained. Some pxtj-cfv-ydescia medications, as well as adulterants, may cause inaccurate results. Clinical correlation should be applied. A more comprehensive drug screen or confirmation of a detected drug may be performed upon request.Unit Coordinator ID - ADMIN Lab Interpretation (test code = 33102-6) [facility]normal [facility], [id number] 02:20:15* Test Item Value Reference Range Interpretation Comme nts Barbiturate Screen (test code = 98895-4) Negative Negative Benzodiazepine Screen (test code = 53652-3) Negative Negative Cocaine (Metab.) Screen (test code = 3397-7) Positive Negative A Methadone Screen (test code = 75172-6) Negative Negative Opiate Screen (test code = 76772-4) Negative Negative Cannabinoid Screen (test code = 38439-2) Positive Negative A Amph/Methamph Screen (test code = 71469-6) Negative Negative Phencyclidine Screen (test code = 49183-9) Negative Negative pH, UA (test code = 5803-2) 6.0 5.0-8.0 LYNDSAY (test code = LYNDSAY) DRUG CUTOFF CONC.Cocaine 300 ng/mL Cannabinoid 50 ng/mLBenzodiazepine 200 ng/mLBarbiturate 200 ng/mLPhencyclidine 25 ng/mLOpiate 300 ng/mLMethadone 300 ng/mLAmphetamine/ 1000 ng/mL Methamphetamine This assay provides an unconfirmed qualitative test result for the clinical management of patients in emergency situations. Chain of custody not maintained. Some izmy-hap-ivlevex medications, as well as adulterants, may cause inaccurate results. Clinical correlation should be applied. A more comprehensive drug screen or confirmation of a detected drug may be performed upon request.Unit Coordinator ID - ADMIN Lab Interpretation (test code = 37584-1) Abnormal [facility], [id number] 02:20:15* Test Item Value Reference Range Interpretation Comme nts Barbiturate Screen (test code = 74612-7) Negative Negative Benzodiazepine Screen (test code = 50334-6) Negative Negative Cocaine (Metab.) Screen (test code = 3397-7) Positive Negative A Methadone Screen (test code = 69572-3) Negative Negative Opiate Screen (test code = 51814-4) Negative Negative Cannabinoid Screen (test code = 69101-1) Positive Negative A Amph/Methamph Screen (test code = 06975-5) Negative Negative Phencyclidine Screen (test code = 58107-9) Negative Negative pH, UA (test code = 5803-2) 6.0 5.0-8.0 LYNDSAY (test code = LYNDSAY) DRUG CUTOFF CONC.Cocaine 300 ng/mL Cannabinoid 50 ng/mLBenzodiazepine 200 ng/mLBarbiturate 200 ng/mLPhencyclidine 25 ng/mLOpiate 300 ng/mLMethadone 300 ng/mLAmphetamine/ 1000 ng/mL Methamphetamine This assay provides an unconfirmed qualitative test result for the clinical management of patients in emergency situations. Chain of custody not maintained. Some odwt-xmw-pexlatv medications, as well as adulterants, may cause inaccurate results. Clinical correlation should be applied. A more comprehensive drug screen or confirmation of a detected drug may be performed upon request.Unit Coordinator ID - ADMIN Lab Interpretation (test code = 04565-3) [facility]normal [facility], [id number] 02:20:15* Test Item Value Reference Range Interpretation [...] situations. Chain of custody not maintained. Some rqkl-pab-cdmobbl medications, as well as adulterants, may cause inaccurate results. Clinical correlation should be applied. A more comprehensive drug screen or confirmation of a detected drug may be performed upon request.Unit Coordinator ID - ADMINB-TYPE NATRIURETIC FACTOR (BNP)2023-09-04 02:11:53* Test Item Value Reference Range Interpretation Comme nts B-TYPE NATRIURETIC PEPTIDE (BEAKER) (test code = 700) 1761 pg/mL 0-100 H Unit Coordinator ID - ADMINLACTIC ACID, [id number] 02:10:37* Test Item Value Reference Range Interpretation Comme nts LACTATE BLOOD VENOUS (2) (BEAKER) (test code = 2872) 1.04 mmol/L 0.50-2.00 Specimen slightl y hemolyzed Unit Coordinator ID - ELCEBGHVSXHREYP0881-38-80 02:04:37* Test Item Value Reference Range Interpretation Comme nts PHOSPHORUS (BEAKER) (test code = 604) 4.2 mg/dL 2.3-4.7 Specimen sligh tly hemolyzed Unit Coordinator ID - ADMINCOMPREHENSIVE METABOLIC [id number] 02:04:37* Test Item Value Reference Range Interpretation [...] U/L 6-55 Specimen slightl y hemolyzed EGFR (LATOYA) (test code = 1092) 96 mL/min/1.73 sq [...] GFR is not applicable for dialysis patients Unit Coordinator ID - [id number] 02:04:36* Test Item Value Reference Range Interpretation Comme nts MAGNESIUM (LATOYA) (test code = 627) 2.1 mg/dL 1.6-2.6 Specimen sligh tly hemolyzed Unit Coordinator ID - PEVSZA-[id number] 01:45:13* Test Item Value Reference Range Interpretation Comme nts D-DIMER QUANTITATIVE (LATOYA ) (test code = [...] Range Interpretation Comme nts PARTIAL THROMBOPLASTIN TIME (LATOYA) (test code = 760) 28.5 seconds 22.5-36.0 PROTHROMBIN TIME/[id number] 01:42:15* Test Item Value Reference Range Interpretation Comme nts PROTIME (LATOYA) (test code = 759) 15.8 seconds 11.9-14.2 H INR (BEAKER) (test code = 370) 1.25 <=5.90 RECOMMENDED COUMADIN/WARFARIN INR THERAPY RANGESSTANDARD DOSE: 2.0 - 3.0 Includes: PROPHYLAXIS for venous thrombosis, systemic embolization; TREATMENT for venous thrombosis and/or pulmonary embolus.HIGH RISK: Target INR is 2.5-3.5 for patients with mechanical heart valves.Lactic Acid Whole [id number] 20:51:22* Test Item Value Reference Range Interpretation Comme nts LACTIC ACID (test code = 1416671433) 1.56 mmol/L 0.50-2.20 Lab Interpretation (test cod e = 39153-0) [facility] [id number] 07:00:09* Test Item Value Reference Range Interpretation Comme nts CULTURE (BEAKER) (test code = 1095) No growth in 5 days BLOOD [id number] 07:00:09* Test Item Value Reference Range Interpretation Comme nts CULTURE (BEAKER) (test code = 1095) No growth in 5 days T-SPOT(R).[id number] 18:35:00* Test Item Value Reference Range Interpretation Comme nts T-SPOT.TB (test code = 7233205) Negative SeeBelow Normal Value: Ne gativeA negative [...] CORRECTED FOR NEG CONTROL (test code = 1744766) 1 PANEL B SPOT COUNT CORRECTED FOR NEG CONTROL (test code = 7720421) 0 NEGATIVE CONTROL (test code = 8704095) Passed POSITIVE CONTROL (test code = 5558334) Passed LYNDSAY (test code = LYNDSAY) [id number] [facility] CenterT[facility](R).[id number] 18:35:00* Test Item Value Reference Range Interpretation Comme nts T-SPOT.TB (test code = 5785203) Negative SeeBelow Normal Value: Ne gativeA negative [...] CORRECTED FOR NEG CONTROL (test code = 4566837) 1 PANEL B SPOT COUNT CORRECTED FOR NEG CONTROL (test code = 5344294) 0 NEGATIVE CONTROL (test code = 6358937) Passed POSITIVE CONTROL (test code = 8295096) Passed LYNDSAY (test code = LYNDSAY) [id number] [facility] CenterT[facility](R).[id number] 18:35:00* Test Item Value Reference Range Interpretation Comme nts T-SPOT.TB (test code = 6212661) Negative SeeBelow Normal Value: Ne gativeA negative [...] CORRECTED FOR NEG CONTROL (test code = 0928521) 1 PANEL B SPOT COUNT CORRECTED FOR NEG CONTROL (test code = 1827132) 0 NEGATIVE CONTROL (test code = 7629844) Passed POSITIVE CONTROL (test code = 6005343) Passed LYNDSAY (test code = LYNDSAY) [id number] [facility]).[id number] 18:35:00* Test Item Value Reference Range Interpretation [...] CORRECTED FOR NEG CONTROL (test code = 2129571) 0 NEGATIVE CONTROL (test code = 9012850) Passed POSITIVE CONTROL (test code = 4241172) Passed LYNDSAY (test code = LYNDSAY) [id number] [facility]).[id number] 18:35:00* Test Item Value Reference Range Interpretation [...] 20150905) 0 NEGATIVE CONTROL (test code = 4961768) Passed POSITIVE CONTROL (test code = 20150907) Passed LYNDSAY (test code = LYNDSAY) [id number] [facility]).[id number] 18:35:00* Test Item Value Reference Range Interpretation [...] 20150905) 0 NEGATIVE CONTROL (test code = 0290669) Passed POSITIVE CONTROL (test code = 2750452) Passed LYNDSAY (test code = LYNDSAY) [id number] [facility]).[id number] 18:35:00* Test Item Value Reference Range Interpretation Comme [facility] T-SPOT.TB (test code = 5057023) Negative SeeBelow Normal Value: Ne gativeA negative [...] CORRECTED FOR NEG CONTROL (test code = 7574325) 1 PANEL B SPOT COUNT CORRECTED FOR NEG CONTROL (test code = 2722963) 0 NEGATIVE CONTROL (test code = 5410740) Passed POSITIVE CONTROL (test code = 2359447) Passed LYNDSAY (test code = LYNDSAY) [id number] [facility]).[id number] 18:35:00* Test Item Value Reference Range Interpretation Comme [facility] T-SPOT.TB (test code = 1846145) Negative SeeBelow Normal Value: Ne gativeA negative [...] CORRECTED FOR NEG CONTROL (test code = 8750031) 1 PANEL B SPOT COUNT CORRECTED FOR NEG CONTROL (test code = 1497329) 0 NEGATIVE CONTROL (test code = 8821624) Passed POSITIVE CONTROL (test code = 7926851) Passed LYNDSAY (test code = LYNDSAY) [id number] [facility]).[id number] 18:35:00* Test Item Value Reference Range Interpretation [...] CORRECTED FOR NEG CONTROL (test code = 2853305) 0 NEGATIVE CONTROL (test code = 6475196) Passed POSITIVE CONTROL (test code = 5634963) Passed LYNDSAY (test code = LYNDSAY) [id number] [facility]).[id number] 18:35:00* Test Item Value Reference Range Interpretation Comme nts T-SPOT.TB (test code = 0118650) Negative SeeBelow Normal Value: Ne gativeA negative [...] 20150905) 0 NEGATIVE CONTROL (test code = 0463531) Passed POSITIVE CONTROL (test code = 4432744) Passed LYNDSAY (test code = LYNDSAY) [id number] [facility]).[id number] 18:35:00* Test Item Value Reference Range Interpretation [...] 20150905) 0 NEGATIVE CONTROL (test code = 4720513) Passed POSITIVE CONTROL (test code = 7756865) Passed LYNDSAY (test code = LYNDSAY) [id number] [facility]).[id number] 18:35:00* Test Item Value Reference Range Interpretation [...] CORRECTED FOR NEG CONTROL (test code = 4037428) 1 PANEL B SPOT COUNT CORRECTED FOR NEG CONTROL (test code = 2438631) 0 NEGATIVE CONTROL (test code = 7241143) Passed POSITIVE CONTROL (test code = 20150907) Passed LYNDSAY (test code = LYNDSAY) [id number] [facility]).[id number] 18:35:00* Test Item Value Reference Range Interpretation Comme nts T-SPOT.TB (test code = 2056138) Negative SeeBelow Normal Value: Ne gativeA negative [...] CORRECTED FOR NEG CONTROL (test code = 3349460) 1 PANEL B SPOT COUNT CORRECTED FOR NEG CONTROL (test code = 2941327) 0 NEGATIVE CONTROL (test code = 3435794) Passed POSITIVE CONTROL (test code = 0089192) Passed LYNDSAY (test code = LYNDSAY) [id number] [facility]).[id number] 18:35:00* Test Item Value Reference Range Interpretation Comme [facility] T-SPOT.TB (test code = 6537646) Negative SeeBelow Normal Value: Ne gativeA negative [...] CORRECTED FOR NEG CONTROL (test code = 6972205) 1 PANEL B SPOT COUNT CORRECTED FOR NEG CONTROL (test code = 5385068) 0 NEGATIVE CONTROL (test code = 0842481) Passed POSITIVE CONTROL (test code = 5365914) Passed LYNDSAY (test code = LYDNSAY) [id number] [facility]).[id number] 18:35:00* Test Item Value Reference Range Interpretation Comme nts T-SPOT.TB (test code = 07120-4) Negative SeeBelow Normal Value: Ne gativeA negative [...] CORRECTED FOR NEG CONTROL (test code = 11589-6) 0 NEGATIVE CONTROL (test code = 27992-1) Passed POSITIVE CONTROL (test code = 90178-7) Passed LYNDSAY (test code = LYNDSAY) [id number] [facility]).[id number] 18:35:00* Test Item Value Reference Range Interpretation Comme nts T-SPOT.TB (test code = 53073-3) Negative SeeBelow Normal Value: Ne gativeA negative [...] CORRECTED FOR NEG CONTROL (test code = 70741-7) 0 NEGATIVE CONTROL (test code = 61407-3) Passed POSITIVE CONTROL (test code = 66276-0) Passed LYNDSAY (test code = LYNDSAY) [id number] [facility]).[id number] 18:35:00* Test Item Value Reference Range Interpretation Comme nts T-SPOT.TB (test code = 63137-8) Negative SeeBelow Normal Value: Ne gativeA negative [...] CORRECTED FOR NEG CONTROL (test code = 26724-6) 0 NEGATIVE CONTROL (test code = 44263-1) Passed POSITIVE CONTROL (test code = 68571-4) Passed LYNDSAY (test code = LYNDSAY) [id number] [facility]).[id number] 18:35:00* Test Item Value Reference Range Interpretation Comme nts T-SPOT.TB (test code = 88960-3) Negative SeeBelow Normal Value: Ne gativeA negative [...] CORRECTED FOR NEG CONTROL (test code = 95065-9) 0 NEGATIVE CONTROL (test code = 78747-6) Passed POSITIVE CONTROL (test code = 82504-7) Passed LYNDSAY (test code = LYNDSAY) [id number] [facility]).[id number] 18:35:00* Test Item Value Reference Range Interpretation Comme nts T-SPOT.TB (test code = 69896-9) Negative SeeBelow Normal Value: Ne gativeA negative [...] CORRECTED FOR NEG CONTROL (test code = 82446-7) 0 NEGATIVE CONTROL (test code = 82719-4) Passed POSITIVE CONTROL (test code = 29918-1) Passed LYNDSAY (test code = LYNDSAY) [id number] [facility]).[id number] 18:35:00* Test Item Value Reference Range Interpretation Comme nts T-SPOT.TB (test code = 96896-9) Negative SeeBelow Normal Value: Ne gativeA negative [...] CORRECTED FOR NEG CONTROL (test code = 98371-2) 0 NEGATIVE CONTROL (test code = 55862-1) Passed POSITIVE CONTROL (test code = 11754-6) Passed LYNDSAY (test code = LYNDSAY) [id number] [facility]).[id number] 18:35:00* Test Item Value Reference Range Interpretation Comme nts T-SPOT.TB (test code = 61888-7) Negative SeeBelow Normal Value: Ne gativeA negative [...] CORRECTED FOR NEG CONTROL (test code = 27619-4) 0 NEGATIVE CONTROL (test code = 73616-1) Passed POSITIVE CONTROL (test code = 15678-9) Passed LYNDSAY (test code = LYNDSAY) [id number] [facility]).[id number] 18:35:00* Test Item Value Reference Range Interpretation Comme nts T-SPOT.TB (test code = 57326-4) Negative SeeBelow Normal Value: Ne gativeA negative [...] CORRECTED FOR NEG CONTROL (test code = 54876-5) 0 NEGATIVE CONTROL (test code = 92609-9) Passed POSITIVE CONTROL (test code = 64955-7) Passed LYNDSAY (test code = LYNDSAY) [id number] [facility]).[id number] 18:35:00* Test Item Value Reference Range Interpretation Comme nts T-SPOT.TB (test code = 82521-2) Negative SeeBelow Normal Value: Ne gativeA negative [...] CORRECTED FOR NEG CONTROL (test code = 88937-9) 0 NEGATIVE CONTROL (test code = 66668-6) Passed POSITIVE CONTROL (test code = 61402-1) Passed LYNDSAY (test code = LYNDSAY) [id number] [facility]).[id number] 18:35:00* Test Item Value Reference Range Interpretation Comme nts T-SPOT.TB (test code = 81486-8) Negative SeeBelow Normal Value: Ne gativeA negative [...] CORRECTED FOR NEG CONTROL (test code = 60200-0) 0 NEGATIVE CONTROL (test code = 63495-9) Passed POSITIVE CONTROL (test code = 38824-4) Passed LYNDSAY (test code = LYNDSAY) [id number] [facility]).[id number] 18:35:00* Test Item Value Reference Range Interpretation Comme nts T-SPOT.TB (test code = 88810-3) Negative SeeBelow Normal Value: Ne gativeA negative [...] CORRECTED FOR NEG CONTROL (test code = 59065-6) 0 NEGATIVE CONTROL (test code = 75295-4) Passed POSITIVE CONTROL (test code = 83827-6) Passed LYNDSAY (test code = LYNDSAY) [id number] [facility]).[id number] 18:35:00* Test Item Value Reference Range Interpretation Comme nts T-SPOT.TB (test code = 57913-0) Negative SeeBelow Normal Value: Ne gativeA negative [...] CORRECTED FOR NEG CONTROL (test code = 46871-8) 0 NEGATIVE CONTROL (test code = 84296-0) Passed POSITIVE CONTROL (test code = 11874-4) Passed LYNDSAY (test code = LYNDSAY) [id number] [facility]).[id number] 18:35:00* Test Item Value Reference Range Interpretation Comme nts T-SPOT.TB (test code = 66551-8) Negative SeeBelow Normal Value: Ne gativeA negative [...] CORRECTED FOR NEG CONTROL (test code = 17227-1) 0 NEGATIVE CONTROL (test code = 69712-1) Passed POSITIVE CONTROL (test code = 16912-5) Passed LYNDSAY (test code = LYNDSAY) [id number] [facility]).[id number] 18:35:00* Test Item Value Reference Range Interpretation Comme [facility] T-SPOT.TB (test code = 26539-0) Negative SeeBelow Normal Value: Ne gativeA negative [...] CORRECTED FOR NEG CONTROL (test code = 19720-5) 0 NEGATIVE CONTROL (test code = 65401-9) Passed POSITIVE CONTROL (test code = 98127-3) Passed LYNDSAY (test code = LYNDSAY) [id number] [facility]).[id number] 18:35:00* Test Item Value Reference Range Interpretation Comme nts T-SPOT.TB (test code = 3444139) Negative SeeBelow Normal Value: Ne gativeA negative [...] CORRECTED FOR NEG CONTROL (test code = 6724204) 1 PANEL B SPOT COUNT CORRECTED FOR NEG CONTROL (test code = 2304344) 0 NEGATIVE CONTROL (test code = 2635638) Passed POSITIVE CONTROL (test code = 6712409) Passed LYNDSAY (test code = LYNDSAY) [id number] [facility]).[id number] 18:35:00* Test Item Value Reference Range Interpretation [...] CORRECTED FOR NEG CONTROL (test code = 1979555) 1 PANEL B SPOT COUNT CORRECTED FOR NEG CONTROL (test code = 7586053) 0 NEGATIVE CONTROL (test code = 8677617) Passed POSITIVE CONTROL (test code = 6424877) Passed LYNDSAY (test code = LYNDSAY) [id number] [facility]).[id number] 18:35:00* Test Item Value Reference Range Interpretation [...] CORRECTED FOR NEG CONTROL (test code = 9787952) 1 PANEL B SPOT COUNT CORRECTED FOR NEG CONTROL (test code = 4203856) 0 NEGATIVE CONTROL (test code = 6942141) Passed POSITIVE CONTROL (test code = 3945484) Passed LYNDSAY (test code = LYNDSAY) [id number] [facility] CenterTransesophageal ofdo9569-74-12 13:41:18 Transesophageal Echocardiography Report (CHETAN) Demographics Patient Name YUE LAWS Date of Study 06/16/2023 ESTELLE Gender Female Visit Number [id number] Race Room Number 1055 Number Date of 1970 Referring Physician Age 53 year(s) [employer] Interpreting Physician Brian MDProcedure Type of Study [...] valve.Tricuspid Valve Partially visualized. Pulmonic Valve Not visualized.[facility] pvmjmj5886-03-35 09:55:41* Test Item Value Reference Range Interpretation Comme nts Result (test code = 6463-4) No MRSA isolated [facility] kwhacq5304-50-81 09:55:41* Test Item Value Reference Range Interpretation Comme nts Result (test code = 6463-4) No MRSA isolated [facility] znemhs5519-31-18 09:55:41* Test Item Value Reference Range Interpretation Comme nts Result (test code = 6463-4) No MRSA isolated [facility] emyryz7797-27-99 09:55:41* Test Item Value Reference Range Interpretation Comme nts Result (test code = 6463-4) No MRSA isolated [facility] splfbk3248-11-98 09:55:41* Test Item Value Reference Range Interpretation Comme nts Result (test code = 6463-4) No MRSA isolated [facility] rxnnnb7436-99-61 09:55:41* Test Item Value Reference Range Interpretation Comme nts Result (test code = 6463-4) No MRSA isolated [facility] nczvlh0276-79-06 09:55:41* Test Item Value Reference Range Interpretation Comme nts Result (test code = 6463-4) No MRSA isolated [facility] uumgun8850-54-77 09:55:41* Test Item Value Reference Range Interpretation Comme nts Result (test code = 6463-4) No MRSA isolated [facility] citski5687-59-04 09:55:41* Test Item Value Reference Range Interpretation Comme nts Result (test code = 6463-4) No MRSA isolated [facility] ycrrug9173-74-88 09:55:41* Test Item Value Reference Range Interpretation Comme nts Result (test code = 6463-4) No MRSA isolated [facility] qeetlv8877-27-29 09:55:41* Test Item Value Reference Range Interpretation Comme nts Result (test code = 6463-4) No MRSA isolated [facility] oqirui5214-02-52 09:55:41* Test Item Value Reference Range Interpretation Comme nts Result (test code = 6463-4) No MRSA isolated [facility] ajizrx6972-68-82 09:55:41* Test Item Value Reference Range Interpretation Comme nts Result (test code = 6463-4) No MRSA isolated [facility] eicmek3817-15-35 09:55:41* Test Item Value Reference Range Interpretation Comme nts Result (test code = 6463-4) No MRSA isolated [facility] pbpnhf1543-26-58 09:55:41* Test Item Value Reference Range Interpretation Comme nts Result (test code = 6463-4) No MRSA isolated [facility] qsodph7188-97-94 09:55:41* Test Item Value Reference Range Interpretation Comme nts Result (test code = 6463-4) No MRSA isolated [facility] hdlqgq3155-41-27 09:55:41* Test Item Value Reference Range Interpretation Comme nts Result (test code = 6463-4) No MRSA isolated [facility] flcyfj8444-30-94 09:55:41* Test Item Value Reference Range Interpretation Comme nts Result (test code = 6463-4) No MRSA isolated [facility] kwtfax4206-08-94 09:55:41* Test Item Value Reference Range Interpretation Comme nts Result (test code = 6463-4) No MRSA isolated [facility] kpjpdj9659-18-81 09:55:41* Test Item Value Reference Range Interpretation Comme nts Result (test code = 6463-4) No MRSA isolated [facility] uwupet2076-21-23 09:55:41* Test Item Value Reference Range Interpretation Comme nts Result (test code = 6463-4) No MRSA isolated [facility] mdyrwa5949-83-37 09:55:41* Test Item Value Reference Range Interpretation Comme nts Result (test code = 6463-4) No MRSA isolated [facility] udwrgu6759-21-70 09:55:41* Test Item Value Reference Range Interpretation Comme nts Result (test code = 6463-4) No MRSA isolated [facility] bzivyw0163-07-31 09:55:41* Test Item Value Reference Range Interpretation Comme nts Result (test code = 6463-4) No MRSA isolated [facility] hqyuun7220-82-89 09:55:41* Test Item Value Reference Range Interpretation Comme nts Result (test code = 6463-4) No MRSA isolated [facility] flhkus2646-10-73 09:55:41* Test Item Value Reference Range Interpretation Comme nts Result (test code = 6463-4) No MRSA isolated [facility] bilyij9467-68-88 09:55:41* Test Item Value Reference Range Interpretation Comme nts Result (test code = 6463-4) No MRSA isolated [facility] kicmrp5796-10-55 09:55:41* Test Item Value Reference Range Interpretation Comme nts Result (test code = 6463-4) No MRSA isolated [facility] rwhazr1505-37-40 09:55:41* Test Item Value Reference Range Interpretation Comme nts Result (test code = 6463-4) No MRSA isolated [facility] rumaqy4431-05-12 09:55:41* Test Item Value Reference Range Interpretation Comme nts Result (test code = 6463-4) No [facility] isolated [facility] [facility] [id number] 09:55:41* Test Item Value Reference Range Interpretation Comme nts Result (test code = 6463-4) No [facility] isolated [facility] [id number] 09:55:41* Test Item Value Reference Range Interpretation Comme nts CULTURE (BEAKER) (test code = 1095) No MRSA isolated CRYPTOCOCCAL [id number] 15:50:36* Test Item Value Reference Range Interpretation Comme nts CRYPTOCOCCAL ANTIGEN, SERUM (BEAKER) (test code = 1828) Negative Negative, Interference SPUTUM CULTURE + GRAM [id number] 10:30:11* Test Item Value Reference Range Interpretation [...] GRAM STAIN RESULT (BEAKER) (test code = 353442) 10-15 epithelial cells GRAM STAIN RESULT (BEAKER) (test code = 621661) 2+ gram positive cocci in chains and pairs GRAM STAIN RESULT (BEAKER) (test code = 649342) 1+ gram negative rods GRAM STAIN RESULT (BEAKER) (test code = 394475) 1+ yeast 2+ Normal respiratory rebel presentVANCOMYCIN LEVEL, [id number] 06:41:26* Test Item Value Reference Range Interpretation Comme nts VANCOMYCIN TROUGH (BEAKER) ( test code = 522) 17.0 ug/mL 10.0-20.0 Unit Coordinator ID - ADMINECHO W CONTRAST & [id number] 13:44:03Transthoracic Echocardiography Report (TTE) Demographics Patient Name YUE LAWS Date of Study 06/14/2023 ESTELLE Gender Female Visit Number [id number] Race Room Number 1055 Number Date of 1970 Referring Aydee Go MD Physician Age 53 year(s) [employer] James Albarran RUST Interpreting Mauricio Bonilla, Physician MDProcedure Type of [...] systolic PA pressure; inadequate TR velocity signal. PulmonicValve PV is not well visualized; function appears normal by Doppler visualized. Aorta Aortic root si ze (SInus of Valsalva diameter) is normal . [...] 5.11 mmHg Mean Gradient: 4.08 mmHg Deceleration Time:150.9 msec Area (continuity): 3.05 cm^2 MV VTI: 23.15 cm MV Evette. Peak: 1.57 m/s Aortic Valve Peak Velocity: 1.93 m/s Mean Velocity: 1.43 m/s Peak Gradient: 14.83 mmHg Mean Gradient: 8.95 mmHg AV Area(continuity): 2.03 cm^2 AV VTI: 34.77 cm AR P1/2t: 193.4 msec Deceleration Time: 667 msec AV DVI: 0.63 LVOT Peak Velocity: 1.18 m/s Peak Gradient: 5.66 mmHg Mean Velocity: 0.86 m/s Mean Gradient: 3.28 mmHg LVOT Diameter: 2.03 cm LVOT VTI: 21.8 cm LVOT Area: 3.24 cm^2 LVOT SV:70.52 ml LVOT CO: 6.49l/min LVOT CI: 3.42 l/min/m^2 Pulmonic Valve Peak Velocity: 0.85 m/s Peak Gradient: 2.89 mmHgG[facility] and Medical CenterHEMOGLOBIN [id number] 09:26:42* Test Item Value Reference Range Interpretation Comme nts HEMOGLOBIN A1C ELECTROPHORESIS (AKER) (test code = 3811) 6.7 % See_Comment [...] 5.7- 6.4% indicates increased risk for diabetes (prediabetes)."Unit Coordinator ID - ADMOperator ID - ADMECG 12 [id number] 09:06:12Ventricular Rate 97 BPMAtrial Rate 97 BPMP-R Interval 146 msQRS Duration 96 msQ-T Interval 378 msQTC Calculation(Bazett) 480 msP [place] 68 degreesR [place] 107 degreesT [place] 18 degrees Suspect arm leadreversal, interpretation assumes no reversalNormal sinus rhythmRightward axisNonspecific T wave abnormalityAbnormal ECGWhen compared with ECG of 30-MAR-2023 13:06,QRS axis Shifted rightConfirmed by Luis Lopez ([id number]) on 06/14/2023 9:06:07 [facility] [id number] 09:06:12Ventricular Rate 97 BPMAtrial Rate 97 BPMP-R Interval 146 msQRS Duration 96 msQ-T Interval 378 msQTC Calculation(Bazett) 480 msP [place] 68 degreesR [place] 107 degreesT [place] 18 degrees Suspect arm leadreversal, interpretation assumes no reversalNormal sinus rhythmRightward axisNonspecific T wave abno rmalityAbnormal ECGWhen compared with ECG of 30-MAR-2023 13:06,QRS axis Shifted rightConfirmed by Luis Lopez ([id number]) on 06/14/2023 9:06:07 [facility] HospitalBASIC METABOLIC [id number] 04:48:18* Test Item Value Reference Range Interpretation [...] GFR is not applicable for dialysis patients Unit Coordinator ID - ADMINCBC (HEMOGRAM ONLY)2023-06-14 04:22:50* Test [...] 413) 0 /100 WBC 0-0 Strep pneumoniae [id number] 23:34:41* Test Item Value Reference Range Interpretation Comme nts Strep pneumoniae Antigen (test code = 57462-0) Presumptive negative for pneumococcal pneumonia - see [...] the test. Lab Interpretation (test code = 47082-7) [facility] [id number] 23:34:41* Test Item Value Reference Range Interpretation Comme nts Strep pneumoniae Antigen (test code = 10100-6) Presumptive negative for pneumococcal pneumonia - see [...] the test. Lab Interpretation (test code = 69556-5) [facility] [id number] 23:34:41* Test Item Value Reference Range Interpretation Comme nts Strep pneumoniae Antigen (test code = 59933-9) Presumptive negative for pneumococcal pneumonia - see [...] the test. Lab Interpretation (test code = 33687-1) [facility] [id number] 23:34:41* Test Item Value Reference Range Interpretation Comme nts Strep pneumoniae Antigen (test code = 03532-5) Presumptive negative for pneumococcal pneumonia - see [...] the test. Lab Interpretation (test code = 19807-5) [facility] [id number] 23:34:41* Test Item Value Reference Range Interpretation Comme nts Strep pneumoniae Antigen (test code = 00536-7) Presumptive negative for pneumococcal pneumonia - see [...] the test. Lab Interpretation (test code = 95106-9) [facility] [id number] 23:34:41* Test Item Value Reference Range Interpretation Comme nts Strep pneumoniae Antigen (test code = 72052-6) Presumptive negative for pneumococcal pneumonia - see [...] the test. Lab Interpretation (test code = 33409-1) [facility] [id number] 23:34:41* Test Item Value Reference Range Interpretation Comme nts Strep pneumoniae Antigen (test code = 75702-8) Presumptive negative for pneumococcal pneumonia - see [...] the test. Lab Interpretation (test code = 48155-8) [facility] [id number] 23:34:41* Test Item Value Reference Range Interpretation Comme nts Strep pneumoniae Antigen (test code = 63450-5) Presumptive negative for pneumococcal pneumonia - see [...] the test. Lab Interpretation (test code = 84621-2) [facility] [id number] 23:34:41* Test Item Value Reference Range Interpretation Comme nts Strep pneumoniae Antigen (test code = 26587-3) Presumptive negative for pneumococcal pneumonia - see [...] the test. Lab Interpretation (test code = 29583-3) [facility] [id number] 23:34:41* Test Item Value Reference Range Interpretation Comme nts Strep pneumoniae Antigen (test code = 70347-0) Presumptive negative for pneumococcal pneumonia - see [...] the test. Lab Interpretation (test code = 97416-3) [facility] [id number] 23:34:41* Test Item Value Reference Range Interpretation Comme nts Strep pneumoniae Antigen (test code = 98391-8) Presumptive negative for pneumococcal pneumonia - see [...] the test. Lab Interpretation (test code = 49328-1) [facility] [id number] 23:34:41* Test Item Value Reference Range Interpretation Comme nts Strep pneumoniae Antigen (test code = 53290-7) Presumptive negative for pneumococcal pneumonia - see [...] the test. Lab Interpretation (test code = 72669-7) [facility] [id number] 23:34:41* Test Item Value Reference Range Interpretation Comme nts Strep pneumoniae Antigen (test code = 16563-1) Presumptive negative for pneumococcal pneumonia - see [...] the test. Lab Interpretation (test code = 67110-6) [facility] [id number] 23:34:41* Test Item Value Reference Range Interpretation Comme nts Strep pneumoniae Antigen (test code = 56824-7) Presumptive negative for pneumococcal pneumonia - see [...] the test. Lab Interpretation (test code = 28940-7) [facility] [id number] 23:34:41* Test Item Value Reference Range Interpretation Comme nts Strep pneumoniae Antigen (test code = 94184-9) Presumptive negative for pneumococcal pneumonia - see [...] the test. Lab Interpretation (test code = 73511-7) [facility] [id number] 23:34:41* Test Item Value Reference Range Interpretation Comme nts Strep pneumoniae Antigen (test code = 39095-4) Presumptive negative for pneumococcal pneumonia - see [...] the test. Lab Interpretation (test code = 80192-4) [facility] [id number] 23:34:41* Test Item Value Reference Range Interpretation Comme nts Strep pneumoniae Antigen (test code = 09257-3) Presumptive negative for pneumococcal pneumonia - see [...] the test. Lab Interpretation (test code = 73772-8) [facility] [id number] 23:34:41* Test Item Value Reference Range Interpretation Comme nts Strep pneumoniae Antigen (test code = 21627-4) Presumptive negative for pneumococcal pneumonia - see [...] the test. Lab Interpretation (test code = 23973-1) [facility] [id number] 23:34:41* Test Item Value Reference Range Interpretation Comme nts Strep pneumoniae Antigen (test code = 77648-9) Presumptive negative for pneumococcal pneumonia - see [...] the test. Lab Interpretation (test code = 17789-1) [facility] [id number] 23:34:41* Test Item Value Reference Range Interpretation Comme nts Strep pneumoniae Antigen (test code = 90149-5) Presumptive negative for pneumococcal pneumonia - see [...] the test. Lab Interpretation (test code = 42848-3) [facility] [id number] 23:34:41* Test Item Value Reference Range Interpretation Comme nts Strep pneumoniae Antigen (test code = 98836-4) Presumptive negative for pneumococcal pneumonia - see [...] the test. Lab Interpretation (test code = 56246-8) [facility] [id number] 23:34:41* Test Item Value Reference Range Interpretation Comme nts Strep pneumoniae Antigen (test code = 92144-0) Presumptive negative for pneumococcal pneumonia - see [...] the test. Lab Interpretation (test code = 78068-0) [facility] [id number] 23:34:41* Test Item Value Reference Range Interpretation Comme nts Strep pneumoniae Antigen (test code = 35658-0) Presumptive negative for pneumococcal pneumonia - see [...] the test. Lab Interpretation (test code = 05864-3) [facility] [id number] 23:34:41* Test Item Value Reference Range Interpretation Comme nts Strep pneumoniae Antigen (test code = 97951-9) Presumptive negative for pneumococcal pneumonia - see [...] the test. Lab Interpretation (test code = 06739-6) [facility] [id number] 23:34:41* Test Item Value Reference Range Interpretation Comme nts Strep pneumoniae Antigen (test code = 83687-7) Presumptive negative for pneumococcal pneumonia - see [...] the test. Lab Interpretation (test code = 14206-9) [facility] [id number] 23:34:41* Test Item Value Reference Range Interpretation Comme nts Strep pneumoniae Antigen (test code = 19484-7) Presumptive negative for pneumococcal pneumonia - see [...] the test. Lab Interpretation (test code = 27964-5) [facility] [id number] 23:34:41* Test Item Value Reference Range Interpretation Comme nts Strep pneumoniae Antigen (test code = 66919-6) Presumptive negative for pneumococcal pneumonia - see [...] the test. Lab Interpretation (test code = 70964-6) [facility] [id number] 23:34:41* Test Item Value Reference Range Interpretation Comme nts Strep pneumoniae Antigen (test code = 70915-7) Presumptive negative for pneumococcal pneumonia - see [...] the test. Lab Interpretation (test code = 44664-1) [facility] [id number] 23:34:41* Test Item Value Reference Range Interpretation Comme nts Strep pneumoniae Antigen (test code = 38626-8) Presumptive negative for pneumococcal pneumonia - see [...] the test. Lab Interpretation (test code = 28493-8) [facility] [id number] 23:34:41* Test Item Value Reference Range Interpretation Comme nts Strep pneumoniae Antigen (test code = 13846-4) Presumptive negative for pneumococcal pneumonia - see [...] the test. Lab Interpretation (test code = 58954-0) [facility] [id number] 23:34:41* Test Item Value Reference Range Interpretation Comme nts Strep pneumoniae Antigen (test code = 46580-0) Presumptive negative for pneumococcal pneumonia - see [...] the test. Lab Interpretation (test code = 52690-4) [facility] HospitalTREP PNEUMONIAE [id number] 23:34:41* Test Item Value Reference Range Interpretation [...] detection limit of the test. Legionella antigen, [id number] 23:29:07* Test Item Value Reference Range Interpretation Comme [facility] Legionella Urine Antigen (test code = 31967-5) Negative - see comment Negative Negative for L. pneumophila serogroup 1 antigen, suggesting no recent or current infection with this serogroup. Legionellosis cannot be ruled out since other serogroups and species may cause disease. Lab Interpretation (test code = 37840-7) [facility] CenterLegionella antigen, [id number] 23:29:07* Test Item Value Reference Range Interpretation Comme [facility] Legionella Urine Antigen (test code = 77104-5) Negative - see comment Negative Negative for L. pneumophila serogroup 1 antigen, suggesting no recent or current infection with this serogroup. Legionellosis cannot be ruled out since other serogroups and species may cause disease. Lab Interpretation (test code = 91685-4) [facility] CenterLegionella antigen, [id number] 23:29:07* Test Item Value Reference Range Interpretation Comme [facility] Legionella Urine Antigen (test code = 14405-6) Negative - see comment Negative Negative for L. pneumophila serogroup 1 antigen, suggesting no recent or current infection with this serogroup. Legionellosis cannot be ruled out since other serogroups and species may cause disease. Lab Interpretation (test code = 21766-8) Normal [facility] CenterLegionella antigen, [id number] 23:29:07* Test Item Value Reference Range Interpretation Comme [facility] Legionella Urine Antigen (test code = 58564-2) Negative - see comment Negative Negative for L. pneumophila serogroup 1 antigen, suggesting no recent or current infection with this serogroup. Legionellosis cannot be ruled out since other serogroups and species may cause disease. Lab Interpretation (test code = 86491-8) [facility] CenterLegionella antigen, [id number] 23:29:07* Test Item Value Reference Range Interpretation Comme [facility] Legionella Urine Antigen (test code = 79311-4) Negative - see comment Negative Negative for L. pneumophila serogroup 1 antigen, suggesting no recent or current infection with this serogroup. Legionellosis cannot be ruled out since other serogroups and species may cause disease. Lab Interpretation (test code = 75119-8) [facility] CenterLegionella antigen, [id number] 23:29:07* Test Item Value Reference Range Interpretation Comme [facility] Legionella Urine Antigen (test code = 34009-9) Negative - see comment Negative Negative for L. pneumophila serogroup 1 antigen, suggesting no recent or current infection with this serogroup. Legionellosis cannot be ruled out since other serogroups and species may cause disease. Lab Interpretation (test code = 57719-4) [facility] CenterLegionella antigen, [id number] 23:29:07* Test Item Value Reference Range Interpretation Comme nts Legionella Urine Antigen (test code = 22859-0) Negative - see comment Negative Negative for L. pneumophila serogroup 1 antigen, suggesting no recent or current infection with this serogroup. Legionellosis cannot be ruled out since other serogroups and species may cause disease. Lab Interpretation (test code = 31094-9) [facility] CenterLegionella antigen, [id number] 23:29:07* Test Item Value Reference Range Interpretation Comme [facility] Legionella Urine Antigen (test code = 98357-9) Negative - see comment Negative Negative for L. pneumophila serogroup 1 antigen, suggesting no recent or current infection with this serogroup. Legionellosis cannot be ruled out since other serogroups and species may cause disease. Lab Interpretation (test code = 33562-8) [facility] CenterLegionella antigen, [id number] 23:29:07* Test Item Value Reference Range Interpretation Comme [facility] Legionella Urine Antigen (test code = 48198-9) Negative - see comment Negative Negative for L. pneumophila serogroup 1 antigen, suggesting no recent or current infection with this serogroup. Legionellosis cannot be ruled out since other serogroups and species may cause disease. Lab Interpretation (test code = 71214-5) Normal [facility] CenterLegionella antigen, [id number] 23:29:07* Test Item Value Reference Range Interpretation Comme nts Legionella Urine Antigen (test code = 01672-2) Negative - see comment Negative Negative for L. pneumophila serogroup 1 antigen, suggesting no recent or current infection with this serogroup. Legionellosis cannot be ruled out since other serogroups and species may cause disease. Lab Interpretation (test code = 26989-5) [facility] CenterLegionella antigen, [id number] 23:29:07* Test Item Value Reference Range Interpretation Comme [facility] Legionella Urine Antigen (test code = 04772-1) Negative - see comment Negative Negative for L. pneumophila serogroup 1 antigen, suggesting no recent or current infection with this serogroup. Legionellosis cannot be ruled out since other serogroups and species may cause disease. Lab Interpretation (test code = 72179-9) Normal [facility] CenterLegionella antigen, [id number] 23:29:07* Test Item Value Reference Range Interpretation Comme nts Legionella Urine Antigen (test code = 71643-7) Negative - see comment Negative Negative for L. pneumophila serogroup 1 antigen, suggesting no recent or current infection with this serogroup. Legionellosis cannot be ruled out since other serogroups and species may cause disease. Lab Interpretation (test code = 07707-8) Normal [facility] CenterLegionella antigen, [id number] 23:29:07* Test Item Value Reference Range Interpretation Comme [facility] Legionella Urine Antigen (test code = 05765-3) Negative - see comment Negative Negative for L. pneumophila serogroup 1 antigen, suggesting no recent or current infection with this serogroup. Legionellosis cannot be ruled out since other serogroups and species may cause disease. Lab Interpretation (test code = 86078-3) Normal [facility] CenterLegionella antigen, [id number] 23:29:07* Test Item Value Reference Range Interpretation Comme [facility] Legionella Urine Antigen (test code = 35259-4) Negative - see comment Negative Negative for L. pneumophila serogroup 1 antigen, suggesting no recent or current infection with this serogroup. Legionellosis cannot be ruled out since other serogroups and species may cause disease. Lab Interpretation (test code = 82660-6) [facility] CenterLegionella antigen, [id number] 23:29:07* Test Item Value Reference Range Interpretation Comme nts Legionella Urine Antigen (test code = 49292-4) Negative - see comment Negative Negative for L. pneumophila serogroup 1 antigen, suggesting no recent or current infection with this serogroup. Legionellosis cannot be ruled out since other serogroups and species may cause disease. Lab Interpretation (test code = 38774-8) [facility] CenterLegionella antigen, [id number] 23:29:07* Test Item Value Reference Range Interpretation Comme [facility] Legionella Urine Antigen (test code = 28071-5) Negative - see comment Negative Negative for L. pneumophila serogroup 1 antigen, suggesting no recent or current infection with this serogroup. Legionellosis cannot be ruled out since other serogroups and species may cause disease. Lab Interpretation (test code = 36013-8) [facility] CenterLegionella antigen, [id number] 23:29:07* Test Item Value Reference Range Interpretation Comme nts Legionella Urine Antigen (test code = 82682-1) Negative - see comment Negative Negative for L. pneumophila serogroup 1 antigen, suggesting no recent or current infection with this serogroup. Legionellosis cannot be ruled out since other serogroups and species may cause disease. Lab Interpretation (test code = 53439-9) [facility] CenterLegionella antigen, [id number] 23:29:07* Test Item Value Reference Range Interpretation Comme [facility] Legionella Urine Antigen (test code = 14855-8) Negative - see comment Negative Negative for L. pneumophila serogroup 1 antigen, suggesting no recent or current infection with this serogroup. Legionellosis cannot be ruled out since other serogroups and species may cause disease. Lab Interpretation (test code = 26107-5) [facility] CenterLegionella antigen, [id number] 23:29:07* Test Item Value Reference Range Interpretation Comme [facility] Legionella Urine Antigen (test code = 03740-9) Negative - see comment Negative Negative for L. pneumophila serogroup 1 antigen, suggesting no recent or current infection with this serogroup. Legionellosis cannot be ruled out since other serogroups and species may cause disease. Lab Interpretation (test code = 32316-3) [facility] CenterLegionella antigen, [id number] 23:29:07* Test Item Value Reference Range Interpretation Comme nts Legionella Urine Antigen (test code = 06508-3) Negative - see comment Negative Negative for L. pneumophila serogroup 1 antigen, suggesting no recent or current infection with this serogroup. Legionellosis cannot be ruled out since other serogroups and species may cause disease. Lab Interpretation (test code = 58878-8) [facility] CenterLegionella antigen, [id number] 23:29:07* Test Item Value Reference Range Interpretation Comme [facility] Legionella Urine Antigen (test code = 19794-4) Negative - see comment Negative Negative for L. pneumophila serogroup 1 antigen, suggesting no recent or current infection with this serogroup. Legionellosis cannot be ruled out since other serogroups and species may cause disease. Lab Interpretation (test code = 19580-6) [facility] CenterLegionella antigen, [id number] 23:29:07* Test Item Value Reference Range Interpretation Comme nts Legionella Urine Antigen (test code = 96624-0) Negative - see comment Negative Negative for L. pneumophila serogroup 1 antigen, suggesting no recent or current infection with this serogroup. Legionellosis cannot be ruled out since other serogroups and species may cause disease. Lab Interpretation (test code = 30069-0) [facility] CenterLegionella antigen, [id number] 23:29:07* Test Item Value Reference Range Interpretation Comme [facility] Legionella Urine Antigen (test code = 71954-9) Negative - see comment Negative Negative for L. pneumophila serogroup 1 antigen, suggesting no recent or current infection with this serogroup. Legionellosis cannot be ruled out since other serogroups and species may cause disease. Lab Interpretation (test code = 09657-3) [facility] CenterLegionella antigen, [id number] 23:29:07* Test Item Value Reference Range Interpretation Comme [facility] Legionella Urine Antigen (test code = 21384-4) Negative - see comment Negative Negative for L. pneumophila serogroup 1 antigen, suggesting no recent or current infection with this serogroup. Legionellosis cannot be ruled out since other serogroups and species may cause disease. Lab Interpretation (test code = 69445-9) Normal [facility] CenterLegionella antigen, [id number] 23:29:07* Test Item Value Reference Range Interpretation Comme nts Legionella Urine Antigen (test code = 00728-6) Negative - see comment Negative Negative for L. pneumophila serogroup 1 antigen, suggesting no recent or current infection with this serogroup. Legionellosis cannot be ruled out since other serogroups and species may cause disease. Lab Interpretation (test code = 03229-0) Normal [facility] CenterLegionella antigen, [id number] 23:29:07* Test Item Value Reference Range Interpretation Comme [facility] Legionella Urine Antigen (test code = 69115-2) Negative - see comment Negative Negative for L. pneumophila serogroup 1 antigen, suggesting no recent or current infection with this serogroup. Legionellosis cannot be ruled out since other serogroups and species may cause disease. Lab Interpretation (test code = 15191-4) [facility] CenterLegionella antigen, [id number] 23:29:07* Test Item Value Reference Range Interpretation Comme nts Legionella Urine Antigen (test code = 70327-4) Negative - see comment Negative Negative for L. pneumophila serogroup 1 antigen, suggesting no recent or current infection with this serogroup. Legionellosis cannot be ruled out since other serogroups and species may cause disease. Lab Interpretation (test code = 52254-0) Normal [facility] CenterLegionella antigen, [id number] 23:29:07* Test Item Value Reference Range Interpretation Comme [facility] Legionella Urine Antigen (test code = 16876-0) Negative - see comment Negative Negative for L. pneumophila serogroup 1 antigen, suggesting no recent or current infection with this serogroup. Legionellosis cannot be ruled out since other serogroups and species may cause disease. Lab Interpretation (test code = 25147-3) Normal [facility] CenterLegionella antigen, [id number] 23:29:07* Test Item Value Reference Range Interpretation Comme [facility] Legionella Urine Antigen (test code = 82962-5) Negative - see comment Negative Negative for L. pneumophila serogroup 1 antigen, suggesting no recent or current infection with this serogroup. Legionellosis cannot be ruled out since other serogroups and species may cause disease. Lab Interpretation (test code = 66089-7) Normal [facility] CenterLegionella antigen, [id number] 23:29:07* Test Item Value Reference Range Interpretation Comme nts Legionella Urine Antigen (test code = 69780-4) Negative - see comment Negative Negative for L. pneumophila serogroup 1 antigen, suggesting no recent or current infection with this serogroup. Legionellosis cannot be ruled out since other serogroups and species may cause disease. Lab Interpretation (test code = 16821-4) Normal [facility] CenterLegionella antigen, [id number] 23:29:07* Test Item Value Reference Range Interpretation Comme nts Legionella Urine Antigen (test code = 92967-1) Negative - see comment Negative Negative for L. pneumophila serogroup 1 antigen, suggesting no recent or current infection with this serogroup. Legionellosis cannot be ruled out since other serogroups and species may cause disease. Lab Interpretation (test code = 51073-0) [facility], [id number] 23:29:07* Test Item Value Reference Range Interpretation Comme nts L. PNEUMOPHILA SEROGP 1 UR AG (BEAKER) (test code = 1156) Negative - see comment Negative Negative for L. pneumophila serogroup 1 antigen, suggesting no recent or current infection with this serogroup. Legionellosis cannot be ruled out since other serogroups and species may cause disease. Venous doppler arm, [id number] 20:05:32PV LAB - Upper Extremities Veins Demographics Patient Name YUE LAWS Date of Study 06/13/2023 ESTELLE Age 53 Visit Number [id number] Gender Female Accession Number [id number] Date of 1970 Referring radha Burgess Room Number 1055 Physician Wood Car [employer] Lisa Ruiz Interpreting John Solorio, Physician FellowProcedureType of Study: Veins: Upper ExtremitiesVeins, VENOUS DOPPLER ARM, LEFT.Indications for Study:Left arm pain .Patient Status:MICHAEL.Study Locat ion:Portable.Technical Quality:Adequate visualization. - Results were reported to:Lina CAMPOS@16:50pm .Risk FactorsHistory of Disease+ + + ---------+!Diagnosis !Date !Comments !+ + + +!History/Risk Factors: !03/30/2023!CHF, CVA, HTN. !+ ----+ + +ImpressionsLeft Impression1. There is no deep [...] in cm/s ; Diameters [facility] WITH HIV-1/2 [id number] 18:36:40* Test Item Value Reference Range Interpretation Comme nts HIV-1 ANTIGEN WITH HIV 1\\T\\2 ANTIBODY (2) (LATOYA) (test code = 2586) Nonreactive Nonreactive MR lumbar spine without & with IV [id number] 14:53:29MR LUMBAR SPINE WITH & WITHOUT IV [...] x 1.7x 1.7 cm. Dorsal paraspinal musculature L1pdoppztenuaare. Postcontrast imaging demonstrates mild peripheralenhancement of the dorsal paraspinal fluid collection. Left adrenalgland 2.9 cm nodule.[facility] CenterMR LUMBAR SPINE WITH & WITHOUT IV [id number] 14:53:29[facility]WALLYHIGINIO MCCABE : 1970 Sex: FMR LUMBAR SPINE [...] 1.7 x 1.7 cm. Dorsal paraspinal musculature R4ctvsygpnjapjrf. Postcontrast imaging demonstrates mild peripheralenhancement of the [...] Signed By: Ryan Buckley06/13/2023 14:55 CDTWorkstation Name: [id number] KINASE (CK)2023-06-13 11:54:02* Test Item Value Reference Range Interpretation Comme nts CREATINE KINASE TOTAL (BEAKE R) (test code = 380) 43 U/L 29-200 Unit Coordinator ID - ADMINCOMPREHENSIVE METABOLIC [id number] 06:48:22* Test Item Value Reference Range Interpretation [...] GFR is not applicable for dialysis patients Unit Coordinator ID - ADMINPROTHROMBIN TIME/[id number] 06:40:01* Test Item Value Reference Range Interpretation [...] code = 2801) 1.70 % 0.00-1.00 H [id number] 05:26:09* Test Item Value Reference Range Interpretation Comme nts MAGNESIUM (BEAKER) (test cod e = 627) 2.0 mg/dL 1.6-2.6 Unit Coordinator ID - [id number] 05:26:09* Test Item Value Reference Range Interpretation Comme nts PHOSPHORUS (BEAKER) (test co de = 604) 3.5 mg/dL 2.3-4.7 Unit Coordinator ID - ADMINBASIC METABOLIC [id number] 05:26:08* Test Item Value Reference Range Interpretation [...] GFR is not applicable for dialysis patients Unit Coordinator ID - ADMINCBC W/PLT COUNT & AUTO [id number] 05:11:15* Test Item Value Reference Range Interpretation [...] 0.70 % 0.00-1.00 XR spine lumbar 1 [id number] 10:32:20XR SPINE LUMBAR 1 VIEW CLINICAL INDICATION: L3-4 LAMINECTOMY COMPARISON: NoneG[facility] CenterXR SPINE LUMBAR 1 [id number] 10:32:20 [facility] : 1970 Sex: FXR SPINE LUMBAR 1 VIEWCLINICAL INDICATION: L3-4 LAMINECTOMYCOMPARISON: NoneIMPRESSION:A single lateral view of the lumbar spine is obtained intraoperatively.The posterior approach surgical instrument is seen at the L3-L4 level,inferior to the L3 spinous process. Results were communicated to , who concurred with the above findings. Electronically Signed By: Maxim Ramos08/01/2022 10:34 CDTWo rkstation Name: [id number] SPINE LUMBAR 1 [id number] 10:29:18 [facility] : 1970 Sex: [...] Signed By: Maxim Ramos08/01/2022 10:31 CDTWorkstation Name: [id number] Screen, [id number] 05:32:52* Test Item Value Reference Range Interpretation Comme nts Preg Test, Ur (test code = 2111-07) Negative Negative Lab Interpretation (test cod e = 45804-1) Normal [facility] CenterPregnancy Screen, [id number] 05:32:52* Test Item Value Reference Range Interpretation Comme nts Preg Test, Ur (test code = 2111-07) Negative Negative Lab Interpretation (test cod e = 21340-7) Normal [facility] CenterPregnancy Screen, [id number] 05:32:52* Test Item Value Reference Range Interpretation Comme nts Preg Test, Ur (test code = 2-1) Negative Negative Lab Interpretation (test cod e = 93158-7) Normal [facility] CenterPregnancy Screen, [id number] 05:32:52* Test Item Value Reference Range Interpretation Comme nts Preg Test, Ur (test code = 2-1) Negative Negative Lab Interpretation (test cod e = 96831-9) Normal [facility] CenterPregnancy Screen, [id number] 05:32:52* Test Item Value Reference Range Interpretation Comme nts Preg Test, Ur (test code = 2-1) Negative Negative Lab Interpretation (test cod e = 20694-4) Normal [facility] CenterPregnancy Screen, [id number] 05:32:52* Test Item Value Reference Range Interpretation Comme nts Preg Test, Ur (test code = 2111-) Negative Negative Lab Interpretation (test cod e = 76306-7) Normal [facility] CenterPreancy Screen, [id number] 05:32:52* Test Item Value Reference Range Interpretation Comme nts Preg Test, Ur (test code = 2111-1) Negative Negative Lab Interpretation (test cod e = 61305-5) Normal [facility] CenterPregnancy Screen, [id number] 05:32:52* Test Item Value Reference Range Interpretation Comme nts Preg Test, Ur (test code = 2111-1) Negative Negative Lab Interpretation (test cod e = 61436-4) Normal [facility] CenterPregnancy Screen, [id number] 05:32:52* Test Item Value Reference Range Interpretation Comme nts Preg Test, Ur (test code = 2111-1) Negative Negative Lab Interpretation (test cod e = 01887-7) Normal [facility] CenterPregnancy Screen, [id number] 05:32:52* Test Item Value Reference Range Interpretation Comme nts Preg Test, Ur (test code = 2111-1) Negative Negative Lab Interpretation (test cod e = 53027-4) Normal [facility] CenterPregnancy Screen, [id number] 05:32:52* Test Item Value Reference Range Interpretation Comme nts Preg Test, Ur (test code = 2111-) Negative Negative Lab Interpretation (test cod e = 60046-4) Normal [facility] CenterPregnancy Screen, [id number] 05:32:52* Test Item Value Reference Range Interpretation Comme nts Preg Test, Ur (test code = 2111-) Negative Negative Lab Interpretation (test cod e = 05419-1) Normal [facility] CenterPregnancy Screen, [id number] 05:32:52* Test Item Value Reference Range Interpretation Comme nts Preg Test, Ur (test code = 2111-) Negative Negative Lab Interpretation (test cod e = 15915-1) Normal [facility] CenterPregnancy Screen, [id number] 05:32:52* Test Item Value Reference Range Interpretation Comme nts Preg Test, Ur (test code = 2111-07) Negative Negative Lab Interpretation (test cod e = 86501-8) Normal [facility] CenterPregnancy Screen, [id number] 05:32:52* Test Item Value Reference Range Interpretation Comme nts Preg Test, Ur (test code = 2111-) Negative Negative Lab Interpretation (test cod e = 25621-4) Normal [facility] CenterPregnancy Screen, [id number] 05:32:52* Test Item Value Reference Range Interpretation Comme nts Preg Test, Ur (test code = 2111-) Negative Negative Lab Interpretation (test cod e = 98050-8) Normal [facility] CenterPregnancy Screen, [id number] 05:32:52* Test Item Value Reference Range Interpretation Comme nts Preg Test, Ur (test code = 2111-) Negative Negative Lab Interpretation (test cod e = 83736-2) Normal [facility] CenterPregnancy Screen, [id number] 05:32:52* Test Item Value Reference Range Interpretation Comme nts Preg Test, Ur (test code = 2111-) Negative Negative Lab Interpretation (test cod e = 38743-4) Normal [facility] CenterPregnancy Screen, [id number] 05:32:52* Test Item Value Reference Range Interpretation Comme nts Preg Test, Ur (test code = 2111-) Negative Negative Lab Interpretation (test cod e = 13052-5) Normal [facility] CenterPregnancy Screen, [id number] 05:32:52* Test Item Value Reference Range Interpretation Comme nts Preg Test, Ur (test code = 2-1) Negative Negative Lab Interpretation (test cod e = 77013-0) Normal [facility] CenterPregnancy Screen, [id number] 05:32:52* Test Item Value Reference Range Interpretation Comme nts Preg Test, Ur (test code = 2-1) Negative Negative Lab Interpretation (test cod e = 23571-1) Normal [facility] CenterPregnancy Screen, [id number] 05:32:52* Test Item Value Reference Range Interpretation Comme nts Preg Test, Ur (test code = 2111-) Negative Negative Lab Interpretation (test cod e = 50077-5) Normal [facility] CenterPregnancy Screen, [id number] 05:32:52* Test Item Value Reference Range Interpretation Comme nts Preg Test, Ur (test code = 2-) Negative Negative Lab Interpretation (test cod e = 91403-2) Normal [facility] CenterPregnancy Screen, [id number] 05:32:52* Test Item Value Reference Range Interpretation Comme nts Preg Test, Ur (test code = 2111-1) Negative Negative Lab Interpretation (test cod e = 41045-3) Normal [facility] CenterPregnancy Screen, [id number] 05:32:52* Test Item Value Reference Range Interpretation Comme nts Preg Test, Ur (test code = 2111-1) Negative Negative Lab Interpretation (test cod e = 85149-4) Normal [facility] CenterPregnancy Screen, [id number] 05:32:52* Test Item Value Reference Range Interpretation Comme nts Preg Test, Ur (test code = 2111-1) Negative Negative Lab Interpretation (test cod e = 88754-8) Normal [facility] CenterPregnancy Screen, [id number] 05:32:52* Test Item Value Reference Range Interpretation Comme nts Preg Test, Ur (test code = 2-1) Negative Negative Lab Interpretation (test cod e = 69883-2) Normal [facility] CenterPregnancy Screen, [id number] 05:32:52* Test Item Value Reference Range Interpretation Comme nts Preg Test, Ur (test code = 2111-) Negative Negative Lab Interpretation (test cod e = 50275-5) Normal [facility] CenterPregnancy Screen, [id number] 05:32:52* Test Item Value Reference Range Interpretation Comme nts Preg Test, Ur (test code = 2111-) Negative Negative Lab Interpretation (test cod e = 33200-0) Normal [facility] CenterPregnancy Screen, [id number] 05:32:52* Test Item Value Reference Range Interpretation Comme nts Preg Test, Ur (test code = 2111-) Negative Negative Lab Interpretation (test cod e = 41769-5) Normal [facility] CenterPregnancy Screen, [id number] 05:32:52* Test Item Value Reference Range Interpretation Comme nts Preg Test, Ur (test code = 2111-) Negative Negative Lab Interpretation (test cod e = 30586-2) Normal [facility] CenterPregnancy Screen, [id number] 05:32:52* Test Item Value Reference Range Interpretation Comme nts Preg Test, Ur (test code = 2111-) Negative Negative Lab Interpretation (test cod e = 55936-7) Normal [facility] CenterPregnancy Screen, [id number] 05:32:52* Test Item Value Reference Range Interpretation Comme nts Preg Test, Ur (test code = 2111-) Negative Negative Lab Interpretation (test cod e = 73216-6) Normal [facility] CenterPregnancy Screen, [id number] 05:32:52* Test Item Value Reference Range Interpretation Comme nts Preg Test, Ur (test code = 2111-) Negative Negative Lab Interpretation (test cod e = 81671-1) Normal [facility] CenterPREGNANCY SCREEN, [id number] 05:32:52* Test Item Value Reference Range Interpretation Comme nts TEST URINE (BEAKER ) (test code = 583) Negative Negative BASIC METABOLIC [id number] 23:30:54* Test Item Value Reference Range Interpretation [...] GFR is not applicable for dialysis patients Unit Coordinator ID - ADMINPT/CGWQ2024-44-23 23:15:33* Test Item Value Reference Range Interpretation [...] H CT neck soft tissue without IV bylqoorr0777-03-65 13:45:22EXAM: CT NECK SOFT TISSUE WITHOUT IV [...] Postoperative changes from anterior cervical discectomy fusionat C3-S4Lffkahtg Lung Apices: NormalCH[facility]child Medical CenterCT NECK SOFT TISSUE WITHOUT IV [id number] 13:45:22 [facility] 1970 Sex: FEXAM: [...] Postoperative changes from anterior cervical discectomy fusionat C3-B7Jmgbnwgj Lung Apices: NormalIMPRESSION:Exam limited by lack of intravenous contrast.1. 1.8 x 2.9 x 1.3 cm ill-defined fluid collection in the leftanterolateral neck soft tissues, suggesting evolving postoperativehemorrhage. Superimposed infection is not ex cluded.2. Retropharyngeal fluid and air measuring up to 0.8 cm in thickness,favored to be present postoperative right frontal edema. Superimposedinfection is not excluded.3. Postoperative changes from ACDF at C3- N8Kiewaqbzenbsxv Signed By: Maxim Ramos07/31/2022 13:47 CDTWorkstation Name: [id number] METABOLIC [id number] 08:13:13* Test Item Value Reference Range Interpretation [...] GFR is not applicable for dialysis patients Unit Coordinator ID - BVCBC W/PLT COUNT & AUTO [id number] 07:46:31* Test Item Value Reference Range Interpretation [...] 0.00-1.00 XR spine cervical 2 or 3 [id number] 20:24:23TECHNIQUE: Frontal and lateral views of the cervical spine. INDICATION: Postop Standing Films. COMPARISON: None.[facility] CenterXR SPINE CERVICAL 2 OR 3 [id number] 20:24:23[facility] : 1970 Sex: [...] Signed By: Zachariah Garcia05/28/2023 20:26 CDTWorkstation Name: [id number] fluoro non-specific up to 1 hour 2023-05-28 11:45:16This is a non-reportable study with no Radiologist dictation. Please refer to your PACS to review images, or Doc Flowsheets for documentation on studies without images.[facility] CenterFL FLUORO NON-SPECIFIC UP TO 1 [id number] 11:45:16 [facility] : 1970 Sex: FThis is a non- reportable study with no Radiologist dictation. Please refer to your PACS to review images, or Doc Flowsheets for documentation on studies without images.FL FLUORO NON-SPECIFIC UP TO 1 [id number] 10:13:02 [facility] : 1970 Sex: FTECHNIQUE: 1 lateral fluoroscopic image of the cervical spine forlocalization.Fluoroscopic time: 3second(s).FINDINGS:The surgical pointer is at C3-C4.The findings were discussed with Dr. Garcia in theOR who concurred withthe findings.IMPRESSION:Intraoperative localization plain film as described abo ve.Electronically Signed By: Derik Reyez05/28/2023 10:15 CDTWorkstation Name: [id number], QUANTITATIVE, [id number] 08:21:03* Test Item Value Reference Range Interpretation Comme nts GONADOTROPIN, CHORIONIC (HCG ) QUANT (BEAKER) (test code = 649) < mIU/mL 0-10 Non- Females: <10 mIU/mL Females: Gestation Age Reference Range(mIU/mL) 0.2-1 Week 5-50 1-2 Weeks 50-500 2-3 Weeks 100-5,000 3-4 Weeks 500-10,000 4-5 Weeks 1,000-50,000 5-6 Weeks 10,000-100,000 6-8 Weeks 15,000- 200,000 2-3 Months 10,000-100,000 Unit Coordinator ID - ADMINCULTURE, [id number] 09:28:30SPECIMEN NUMBER: [id number] CULTURE, URINE SPECIMEN NUMBER: [id number] SPECIMEN COMMENT: URINE SOURCE: URINE REPORT STATUS: FINAL FINAL REPORT: 05/15/2023 >100,000 CFU/ML UROGENITAL REBEL PRESENT NOCOMMON PATHOGENS UNLESS OTHERWISE INDICATED, ALL TESTING PERFORMED AT [facility] [address] [place] [address] AIR CONDITIONING TECHNICIAN: JANNY STEINER M.D. CLIA NUMBER [id number] [place]. [id number], [id number] 12:02:50SPECIMEN NUMBER: [id number] CULTURE, URINE SPECIMEN NUMBER: [id number] SOURCE: URINE REPORT STATUS: FINAL FINAL REPORT: 05/13/2023 NO SPECIMEN RECEIVED FOR TESTING. CHARGES DELETED.BASIC METABOLIC [id number] 04:48:43* Test Item Value Reference Range Interpretation Comme nts GLUCOSE (test code = 2217) 117 MG/DL 70-99 H BUN (test code = 2208) 20 MG/DL 6-20 CREATININE (test code = 2214) 0.83 MG/DL 0.60-1.30 eGFR (2020 CKD-EPI) (test co de = 26239) 85 ML/MIN/1.73 >60 SODIUM (test code = [...] 12.7 SECONDS 12.5-14.7 INR (test code = 88758) 0.9 SEE BELOW CURRENT RECOMMENDATIONS ARE FOR AN INR OF 2.0-3.0 FOR ALL PATIENTS ON VITAMIN K ANTAGONISTS, EXCEPT THOSE WITH PROSTHETIC HEART VALVES, FOR WHOM INR OF 2.5-3.5 IS RECOMMENDED. UNLESS OTHERWISE INDICATED, ALL TESTING PERFORMED AT [facility] [address] [place] [address] AIR CONDITIONING TECHNICIAN: JANNY STEINER M.D. CLIA NUMBER [id number] [place]. [id number] CBC W/AUTO DIFF WITH [id number] 01:54:17* Test Item Value Reference Range Interpretation [...] = 1065) 0.0 /100 WBC'S See_Comment [Automated Need Fixeda ge] The system which generated this result [...] H ABS NUCLEATED RBCS (test code = 40476) 0.00 K/UL 0.00-0.11 ECG 12 [id number] 14:02:48Ventricular Rate 102 BPMAtrial Rate 102 BPMP-R Interval 146 msQRS Duration 90 msQ-T Interval 372 msQTC Calculation(Bazeyury) 484 msP [place] 11 degreesR [place] -53 degreesT [place] 29 degrees Sinus tachycardiaPossible Left atrial enlargementLeft axis deviationPoor R wave progression Cannot rule out Anterior infarct , age undetermined vs lead misplacementNonspecific T wave abnormalityProlonged QTAbnormal ECGNo previous ECGs availableConfirmed by David GARCIA BASANT ([id number]) on 04/06/2023 2:02:46 [facility] CenterECHO W CONTRAST & [id number] 13:11:39Transthoracic Echocardiography Report (TTE) Demographics Patient Name YUE LAWS Date of Study 03/31/2023 ESTELLE Gender Female Visit Number [id number] Race Room Number 2227 Number Date of 1970 Referring Physician Mariah Aldridge MD Age 53 year(s) Wood Car Builder Wilmer Francois Personal Trainer Josfeina Corbett, RUST Interpreting Physician Melody MDProcedure Type of Study [...] Peak Velocity: 0.74 m/s Peak Gradient: 2.22 mmHgGarden Grove Hospital and Medical CenterXR chest 1 view portable / [id number] 15:39:07TECHNIQUE: Frontal view of the chest. INDICATION: CHf. COMPARISON: None. FINDINGS: LINES/TUBES: None. HEART AND MEDIASTINUM: Cardiomediastinal contour is within normallimits. LUNGS: The lungs are well inflated and clear. No consolidation orpulmonary edema. PLEURA: No pneumothorax. No significant pleural effusion. SOFT TISSUES AND BONES: Cervical spinal fixation hardware is noted.[facility] CenterXR CHEST 1 VIEW PORTABLE / [id number] 15:39:07 [facility] 1970 Sex: FTECHNIQUE: Frontal view of the chest.INDICATION: CHf.COMPARISON: None.FINDINGS:LINES/TUBES: None.HE ART AND MEDIASTINUM: Cardiomediastinal contour is within normallimits. LUNGS: The lungs are well inflated and clear. No consolidation orpulmonary edema.PLEURA: No pneumothorax. No significant pleuraleffusion.SOFT TISSUES AND BONES: Cervical spinal fixation hardware is noted.IMPRESSION:No acute card iopulmonary process.Electronically Signed By: Jose Carlos Lebron04/01/2023 15:41 CDTWorkstation Name: [id number] NATRIURETIC FACTOR (BNP)2023-04-01 14:15:07* Test Item Value Reference Range Interpretation Comme nts B-TYPE NATRIURETIC PEPTIDE ( BEAKER) (test code = 700) 192 pg/mL 0-100 H Unit Coordinator ID - ADMINMR spine cervical without IV [id number] 11:30:35MRI cervical spine without contrast CLINICAL HISTORY: [...] and paraspinal soft tissues are within normal limits.[facility] IV [id number] 11:30:35 [facility] 1970 Sex: [...] Signed By: Maxim Sultana03/31/2023 11:32 CDTWorkstation Name: [id number] METABOLIC [id number] 04:43:14* Test Item Value Reference Range Interpretation [...] GFR is not applicable for dialysis patients Unit Coordinator GEOVANNA CORREA WCBC (HEMOGRAM ONLY)2023-03-31 04:20:07* Test [...] 0 /100 WBC 0-0 Arterial doppler legs [id number] 17:44:07PV LAB - Lower Extremity Arterial Duplex Demographics Patient Name YUE LAWS Date of Study ESTELLE Age 53 Visit Number [id number] Gender Female Accession Number [id number] Date of 1970 Referring Mariah Jasen, Room Number 2227 Physician Wood Car Builder Yovana Akisn Interpreting John Solorio Physician FellowProcedureType of Study: Extremities Arteries: Lower [...] + + + + + + !Prox MARINA MANAGER ! !32 ! !Biphasic ! !60.9 ! !Triphasic ! +-- + + + + + + + + + !Mid MARINA MANAGER ! !25.9 ! !Biphasic ! !59.7 ! !Triphasic ! + + + + + + + + + + !Dist MARINA MANAGER ! !33.2 ! !Biphasic ! !37.4 ! [...] ! !Triphasic ! !60.5 ! !Triphasic ! +--------- + + + + + + + + + !Mid Peroneal! !27.9 ! !Biphasic ! !39.8 ! !Triphasic ! + + + + + + + + + + !Dist Peroneal ! !31.6 ! !Biphasic ! !23.6 ! !Biphasic ! +--- + + + + + + + + +[facility](Ankle/Brachial Index)2023-03-30 17:13:47PV LAB - Lower Extremity Arterial Procedure Demographics Patient Name YUE LAWS Date of Study 03/30/2023 ESTELLE Age 53 Visit Number [id number] Gender Female Accession Number [id number] Date of 1970 Referring Mariah Aldridge, Room Number 2227 Physician Wood Car Builder Yovana Akins Interpreting John Solorio, Physician FellowProcedureType [...] in cm/s ; Diameters are measured in [facility] thoracic spine without IV [id number] 12:50:50MR THORACIC SPINE WITHOUT IV CONTRAST INDICATION: [...] and further reported on MRI lumbar spine. [facility]MR THOR[facility]IC [facility] WITHOUT IV [id number] 12:50:50[facility] 1970 Sex: [...] abnormality. T10-11 moderate right neural foraminal stenosis lrxG22-60 moderate bilateral foraminal stenosis due to facet [...] Signed By: Ryan Buckley03/30/2023 12:52 CDTWorkstation Name: [id number] spine lumbar without IV [id number] 12:33:57MR LUMBAR SPINE WITHOUT IV CONTRAST INDICATION: Unlisted Reason for ExamConcern for cord compression COMPARISON: None TECHNIQUE: Multiplanar, multisequence MR images of the lumbar spinewithout contrast. FINDINGS: For the purposes of this dictation, the 5 lowermost keerfm-qgvnokongkgve-hhad vertebral bodies are labeled L1-L5.Alignment of the [...] with mild to moderatebilateral neural foraminal stenosisCHI [facility] CenterMR LUMBAR SPINE WITHOUT IV [id number] 12:33:57 [facility] 1970 Sex: FMR LUMBAR SPINE WITHOUT IV CONTRASTINDICATION: Unlisted Reason for ExamConcern for cord compressionCOMPARISON: NoneTECHNIQUE: Multiplanar, multisequence MR images of the lumbar spinewithout contrast. FINDINGS: For the purposes of this dictation, the 5 lowermost ycqcpc-vwwebbbfytoix-vvaj vertebral bodies are labeled L1- L5.Alignment of the lumbar spine is within normal limits. Vertebral body height is maintained. Bone marrow edema is seen at the inferior L3 and superior L4 vertebralbodies and bilateral L4 pedicles, favored to be degenerative in nature.Suggestion of a synovial cyst at the zbkhoF92-N82 level (series 301image eight).No spinal cord signal [...] flavum buckling versus synovial cyst at the yvhzdI33-M76 level (series 301image eight). MRI thoracic spine can beconsidered for further evaluation.7. Mild clumping of the cauda equina nerve roots, which is nonspecificbut may represent arachnoiditis. Postcontrast imaging can be consideredfor further evaluation.Electronically Signed By: Maxim Sultana03/30/2023 12:36 CDTWorkstation Name: [id number] 11:45:01* Test Item Value Reference Range Interpretation [...] 5.7- 6.4% indicates increased risk for diabetes (prediabetes)."Unit Coordinator ID - ADMEEG AWAKE AND [id number] 09:57:53Steph Martinez MD 03/30/2023 9:[address] EEG Type: Inpatient, outpatient, EMUDATE(s) OF EE03/30/23DATE OF REPORT: 03/30/23MRN: [id number] of : 1970EE-1454Start time: 08:36Stop time: 09:23ICD-10: R56.9 CPT Code: 04079 (awake and asleep)HISTORY: 53 y/o female with [...] EEG recordings. Steph Elias MD, MPHNeurophysiology/Epilepsy AttendingCH[facility] EEG AWAKE AND [id number] 09:57:53Gadarcy Martinez MD 03/30/2023 9:[address] [facility] EEG Type: Inpatient, outpatient, EMUDATE(s) OF EE03/30/23DATE OF REPORT: 03/30/23MRN: [id number] of : 1970EE-1454Start time: 08:36Stop time: 09:23ICD-10: R56.9 CPT Code: 57570 (awake and asleep)HISTORY: 53 y/o female with [...] EEG recordings. Steph Elias MD, MPHNeurophysiology/Epilepsy AttendingCH[facility] EEG AWAKE AND [id number] 09:57:53Gadarcy Martinez MD 03/30/2023 9:[address] [facility] EEG Type: Inpatient, outpatient, EMUDATE(s) OF EE03/30/23DATE OF REPORT: 03/30/23MRN: [id number] of : 1970EE-1454Start time: 08:36Stop time: 09:ICD-10: R56.9 CPT Code: 52091 (awake and asleep)HISTORY: 53 y/o female with [...] EEG recordings. Steph Elias MD, MPHNeurophysiology/Epilepsy AttendingCH[facility] VALPROIC ACID LEVEL, [id number] 09:42:31* Test Item Value Reference Range Interpretation Comme nts VALPROIC ACID TOTAL (BEAKER) (test code = 924) 76 ug/mL 50-100 Therapeutic range for some clinical conditions may be >100 ug/mLUrinalysis w/Microscopic + Reflex to [id number] 08:43:51* Test Item Value Reference Range Interpretation Comme nts Color, UA (test code = 5778-6) Yellow Clarity, UA (test code = 5767-9) Clear Specific [place], UA (test code = 5811-5) 1.033 1.001-1.035 pH, UA (test code = 5803-2) 6.0 5.0-8.0 Protein, UA (test code = 15799-0) 30 mg/dL Negative A Glucose, UA (test code = 365) Negative Negative Ketones, UA (test code = 2514-8) Negative Negative Bilirubin, UA (test code = 36882-9) Negative Negative Blood, UA (test code = 12462-5) Small Negative A Nitrite, UA (test code = 5802-4) Negative Negative Leukocytes, UA (test code = 5799-2) Negative Negative Urobilinogen, UA (test code = 36692-5) 0.2 0.2-1.0 RBC, UA (test code = 30729-2) 51 See_Comment [Automated message] The system which [...] Occasional Squam Epithel, UA (test code = 03182-5) See_Comment [Automated message] The system which generated this result transmitted reference range: /HPF. The reference range was not used to interpret this result as normal/abnormal. Specimen Source (test code = 2795) LYNDSAY (test code = LYNDSAY) Unit Coordinator ID - [auto]Unit Coordinator ID - tech Lab Interpretation (test code = 73548-0) Abnormal [facility] CenterUrinalysis w/Microscopic + Reflex to Culture 2023-03-30 08:43:51* Test Item Value Reference Range Interpretation Comme nts Color, UA (test code = 5778-6) Yellow Clarity, UA (test code = 5767-9) Clear Specific [place], UA (test code = 5811-5) 1.033 1.001-1.035 pH, UA (test code = 5803-2) 6.0 5.0-8.0 Protein, UA (test code = 23543-1) 30 mg/dL Negative A Glucose, UA (test code = 365) Negative Negative Ketones, UA (test code = 2514-8) Negative Negative Bilirubin, UA (test code = 31535-4) Negative Negative Blood, UA (test code = 60102-8) Small Negative A Nitrite, UA (test code = 5802-4) Negative Negative Leukocytes, UA (test code = 5799-2) Negative Negative Urobilinogen, UA (test code = 18354-5) 0.2 0.2-1.0 RBC, UA (test code = 75322-4) 51 See_Comment [Automated message] The system which [...] Occasional Squam Epithel, UA (test code = 12176-8) See_Comment [Automated message] The system which generated this result transmitted reference range: /HPF. The reference range was not used to interpret this result as normal/abnormal. Specimen Source (test code = 2795) LYNDSAY (test code = LYNDSAY) Unit Coordinator ID - [auto]Unit Coordinator ID - tech Lab Interpretation (test code = 29082-1) Abnormal [facility] Center[facility] w/Microscopic + Reflex to Culture 2023-03-30 08:43:51* Test Item Value Reference Range Interpretation Comme nts Color, UA (test code = 5778-6) Yellow Clarity, UA (test code = 5767-9) Clear Specific [place], UA (test code = 5811-5) 1.033 1.001-1.035 pH, UA (test code = 5803-2) 6.0 5.0-8.0 Protein, UA (test code = 86994-5) 30 mg/dL Negative A Glucose, UA (test code = 365) Negative Negative Ketones, UA (test code = 2514-8) Negative Negative Bilirubin, UA (test code = 43901-5) Negative Negative Blood, UA (test code = 52129-3) Small Negative A Nitrite, UA (test code = 5802-4) Negative Negative Leukocytes, UA (test code = 5799-2) Negative Negative Urobilinogen, UA (test code = 03643-1) 0.2 0.2-1.0 RBC, UA (test code = 26248-9) 51 See_Comment [Automated message] The system which [...] Occasional Squam Epithel, UA (test code = 16916-1) See_Comment [Automated message] The system which generated this result transmitted reference range: /HPF. The reference range was not used to interpret this result as normal/abnormal. Specimen Source (test code = 2795) LYNDSAY (test code = LYNDSAY) Unit Coordinator ID - [auto]Unit Coordinator ID - tech Lab Interpretation (test code = 43605-3) Abnormal [facility] w/Microscopic + Reflex to Culture 2023-03-30 08:43:51* Test Item Value Reference Range Interpretation Comme nts Color, UA (test code = 5778-6) Yellow Clarity, UA (test code = 5767-9) Clear Specific [place], UA (test code = 5811-5) 1.033 1.001-1.035 pH, UA (test code = 5803-2) 6.0 5.0-8.0 Protein, UA (test code = 71471-2) 30 mg/dL Negative A Glucose, UA (test code = 365) Negative Negative Ketones, UA (test code = 2514-8) Negative Negative Bilirubin, UA (test code = 61304-3) Negative Negative Blood, UA (test code = 89677-7) Small Negative A Nitrite, UA (test code = 5802-4) Negative Negative Leukocytes, UA (test code = 5799-2) Negative Negative Urobilinogen, UA (test code = 45671-6) 0.2 0.2-1.0 RBC, UA (test code = 77349-7) 51 See_Comment [Automated message] The system which [...] Occasional Squam Epithel, UA (test code = 61747-5) See_Comment [Automated message] The system which generated this result transmitted reference range: /HPF. The reference range was not used to interpret this result as normal/abnormal. Specimen Source (test code = 2795) LYNDSAY (test code = LYNDSAY) Unit Coordinator ID - [auto]Unit Coordinator ID - tech Lab Interpretation (test code = 03189-7) Abnormal [facility] w/Microscopic + Reflex to Culture 2023-03-30 08:43:51* Test Item Value Reference Range Interpretation Comme nts Color, UA (test code = 5778-6) Yellow Clarity, UA (test code = 5767-9) Clear Specific [place], UA (test code = 5811-5) 1.033 1.001-1.035 pH, UA (test code = 5803-2) 6.0 5.0-8.0 Protein, UA (test code = 37853-1) 30 mg/dL Negative A Glucose, UA (test code = 365) Negative Negative Ketones, UA (test code = 2514-8) Negative Negative Bilirubin, UA (test code = 20633-4) Negative Negative Blood, UA (test code = 03768-8) Small Negative A Nitrite, UA (test code = 5802-4) Negative Negative Leukocytes, UA (test code = 5799-2) Negative Negative Urobilinogen, UA (test code = 97943-1) 0.2 0.2-1.0 RBC, UA (test code = 97829-2) 51 See_Comment [Automated message] The system which [...] Occasional Squam Epithel, UA (test code = 79372-8) See_Comment [Automated message] The system which generated this result transmitted reference range: /HPF. The reference range was not used to interpret this result as normal/abnormal. Specimen Source (test code = 2795) LYNDSAY (test code = LYNDSAY) Unit Coordinator ID - [auto]Unit Coordinator ID - tech Lab Interpretation (test code = 71537-7) [facility]normal [facility] + Reflex to Culture 2023-03-30 08:43:51* Test Item Value Reference Range Interpretation Comme nts Color, UA (test code = 5778-6) Yellow Clarity, UA (test code = 5767-9) Clear Specific [place], UA (test code = 5811-5) 1.033 1.001-1.035 pH, UA (test code = 5803-2) 6.0 5.0-8.0 Protein, UA (test code = 99030-2) 30 mg/dL Negative A Glucose, UA (test code = 365) Negative Negative Ketones, UA (test code = 2514-8) Negative Negative Bilirubin, UA (test code = 30107-9) Negative Negative Blood, UA (test code = 91875-2) Small Negative A Nitrite, UA (test code = 5802-4) Negative Negative Leukocytes, UA (test code = 5799-2) Negative Negative Urobilinogen, UA (test code = 02646-6) 0.2 0.2-1.0 RBC, UA (test code = 49190-3) 51 See_Comment [Automated message] The system which [...] Occasional Squam Epithel, UA (test code = 54238-9) See_Comment [Automated message] The system which generated this result transmitted reference range: /HPF. The reference range was not used to interpret this result as normal/abnormal. Specimen Source (test code = 2795) LYNDSAY (test code = LYNDSAY) Unit Coordinator ID - [auto]Unit Coordinator ID - tech Lab Interpretation (test code = 42064-0) [facility]normal [facility]/Microscopic + Reflex to Culture 2023-03-30 08:43:51* Test Item Value Reference Range Interpretation Comme nts Color, UA (test code = 5778-6) Yellow Clarity, UA (test code = 5767-9) Clear Specific [place], UA (test code = 5811-5) 1.033 1.001-1.035 pH, UA (test code = 5803-2) 6.0 5.0-8.0 Protein, UA (test code = 59902-0) 30 mg/dL Negative A Glucose, UA (test code = 365) Negative Negative Ketones, UA (test code = 2514-8) Negative Negative Bilirubin, UA (test code = 78027-8) Negative Negative Blood, UA (test code = 85231-6) Small Negative A Nitrite, UA (test code = 5802-4) Negative Negative Leukocytes, UA (test code = 5799-2) Negative Negative Urobilinogen, UA (test code = 09489-7) 0.2 0.2-1.0 RBC, UA (test code = 38847-5) 51 See_Comment [Automated message] The system which [...] Occasional Squam Epithel, UA (test code = 01470-7) See_Comment [Automated message] The system which generated this result transmitted reference range: /HPF. The reference range was not used to interpret this result as normal/abnormal. Specimen Source (test code = 2795) LYNDSAY (test code = LYNDSAY) Unit Coordinator ID - [auto]Unit Coordinator ID - tech Lab Interpretation (test code = 97331-1) Abnormal [facility]Microscopic + Reflex to Culture 2023-03-30 08:43:51* Test Item Value Reference Range Interpretation Comme nts Color, UA (test code = 5778-6) Yellow Clarity, UA (test code = 5767-9) Clear Specific [place], UA (test code = 5811-5) 1.033 1.001-1.035 pH, UA (test code = 5803-2) 6.0 5.0-8.0 Protein, UA (test code = 61565-1) 30 mg/dL Negative A Glucose, UA (test code = 365) Negative Negative Ketones, UA (test code = 2514-8) Negative Negative Bilirubin, UA (test code = 85195-0) Negative Negative Blood, UA (test code = 83883-3) Small Negative A Nitrite, UA (test code = 5802-4) Negative Negative Leukocytes, UA (test code = 5799-2) Negative Negative Urobilinogen, UA (test code = 49085-1) 0.2 0.2-1.0 RBC, UA (test code = 56012-5) 51 See_Comment [Automated message] The system which [...] Occasional Squam Epithel, UA (test code = 89892-3) See_Comment [Automated message] The system which generated this result transmitted reference range: /HPF. The reference range was not used to interpret this result as normal/abnormal. Specimen Source (test code = 2795) LYNDSAY (test code = LYNDSAY) Unit Coordinator ID - [auto]Unit Coordinator ID - tech Lab Interpretation (test code = 33120-8) [facility]normal [facility]/Microscopic + Reflex to Culture 2023-03-30 08:43:51* Test Item Value Reference Range Interpretation Comme nts Color, UA (test code = 5778-6) Yellow Clarity, UA (test code = 5767-9) Clear Specific [place], UA (test code = 5811-5) 1.033 1.001-1.035 pH, UA (test code = 5803-2) 6.0 5.0-8.0 Protein, UA (test code = 30270-7) 30 mg/dL Negative A Glucose, UA (test code = 365) Negative Negative Ketones, UA (test code = 2514-8) Negative Negative Bilirubin, UA (test code = 75243-1) Negative Negative Blood, UA (test code = 80143-1) Small Negative A Nitrite, UA (test code = 5802-4) Negative Negative Leukocytes, UA (test code = 5799-2) Negative Negative Urobilinogen, UA (test code = 52775-8) 0.2 0.2-1.0 RBC, UA (test code = 97404-3) 51 See_Comment [Automated message] The system which [...] Occasional Squam Epithel, UA (test code = 06710-4) See_Comment [Automated message] The system which generated this result transmitted reference range: /HPF. The reference range was not used to interpret this result as normal/abnormal. Specimen Source (test code = 2795) LYNDSAY (test code = LYNDSAY) Unit Coordinator ID - [auto]Unit Coordinator ID - tech Lab Interpretation (test code = 50675-9) [facility]normal [facility] + Reflex to Culture 2023-03-30 08:43:51* Test Item Value Reference Range Interpretation Comme nts Color, UA (test code = 5778-6) Yellow Clarity, UA (test code = 5767-9) Clear Specific [place], UA (test code = 5811-5) 1.033 1.001-1.035 pH, UA (test code = 5803-2) 6.0 5.0-8.0 Protein, UA (test code = 42047-9) 30 mg/dL Negative A Glucose, UA (test code = 365) Negative Negative Ketones, UA (test code = 2514-8) Negative Negative Bilirubin, UA (test code = 63609-1) Negative Negative Blood, UA (test code = 39250-5) Small Negative A Nitrite, UA (test code = 5802-4) Negative Negative Leukocytes, UA (test code = 5799-2) Negative Negative Urobilinogen, UA (test code = 65422-7) 0.2 0.2-1.0 RBC, UA (test code = 64161-7) 51 See_Comment [Automated message] The system which [...] Occasional Squam Epithel, UA (test code = 08105-8) See_Comment [Automated message] The system which generated this result transmitted reference range: /HPF. The reference range was not used to interpret this result as normal/abnormal. Specimen Source (test code = 2795) LYNDSAY (test code = LYNDSAY) Unit Coordinator ID - [auto]Unit Coordinator ID - tech Lab Interpretation (test code = 80453-0) [facility]normal [facility]/Microscopic + Reflex to Culture 2023-03-30 08:43:51* Test Item Value Reference Range Interpretation Comme nts Color, UA (test code = 5778-6) Yellow Clarity, UA (test code = 5767-9) Clear Specific [place], UA (test code = 5811-5) 1.033 1.001-1.035 pH, UA (test code = 5803-2) 6.0 5.0-8.0 Protein, UA (test code = 22597-7) 30 mg/dL Negative A Glucose, UA (test code = 365) Negative Negative Ketones, UA (test code = 2514-8) Negative Negative Bilirubin, UA (test code = 75380-7) Negative Negative Blood, UA (test code = 90358-9) Small Negative A Nitrite, UA (test code = 5802-4) Negative Negative Leukocytes, UA (test code = 5799-2) Negative Negative Urobilinogen, UA (test code = 69238-5) 0.2 0.2-1.0 RBC, UA (test code = 32444-4) 51 See_Comment [Automated message] The system which [...] Occasional Squam Epithel, UA (test code = 29307-1) See_Comment [Automated message] The system which generated this result transmitted reference range: /HPF. The reference range was not used to interpret this result as normal/abnormal. Specimen Source (test code = 2795) LYNDSAY (test code = LYNDSAY) Unit Coordinator ID - [auto]Unit Coordinator ID - tech Lab Interpretation (test code = 11783-4) [facility]normal [facility] + Reflex to Culture 2023-03-30 08:43:51* Test Item Value Reference Range Interpretation Comme nts Color, UA (test code = 5778-6) Yellow Clarity, UA (test code = 5767-9) Clear Specific [place], UA (test code = 5811-5) 1.033 1.001-1.035 pH, UA (test code = 5803-2) 6.0 5.0-8.0 Protein, UA (test code = 59680-0) 30 mg/dL Negative A Glucose, UA (test code = 365) Negative Negative Ketones, UA (test code = 2514-8) Negative Negative Bilirubin, UA (test code = 17944-0) Negative Negative Blood, UA (test code = 56510-5) Small Negative A Nitrite, UA (test code = 5802-4) Negative Negative Leukocytes, UA (test code = 5799-2) Negative Negative Urobilinogen, UA (test code = 31379-6) 0.2 0.2-1.0 RBC, UA (test code = 99390-2) 51 See_Comment [Automated message] The system which [...] Occasional Squam Epithel, UA (test code = 53471-5) See_Comment [Automated message] The system which generated this result transmitted reference range: /HPF. The reference range was not used to interpret this result as normal/abnormal. Specimen Source (test code = 2795) LYNDSAY (test code = LYNDSAY) Unit Coordinator ID - [auto]Unit Coordinator ID - tech Lab Interpretation (test code = 61412-8) [facility]normal [facility] + Reflex to Culture 2023-03-30 08:43:51* Test Item Value Reference Range Interpretation Comme nts Color, UA (test code = 5778-6) Yellow Clarity, UA (test code = 5767-9) Clear Specific [place], UA (test code = 5811-5) 1.033 1.001-1.035 pH, UA (test code = 5803-2) 6.0 5.0-8.0 Protein, UA (test code = 04257-8) 30 mg/dL Negative A Glucose, UA (test code = 365) Negative Negative Ketones, UA (test code = 2514-8) Negative Negative Bilirubin, UA (test code = 74383-9) Negative Negative Blood, UA (test code = 96180-6) Small Negative A Nitrite, UA (test code = 5802-4) Negative Negative Leukocytes, UA (test code = 5799-2) Negative Negative Urobilinogen, UA (test code = 32075-4) 0.2 0.2-1.0 RBC, UA (test code = 16059-4) 51 See_Comment [Automated message] The system which [...] Occasional Squam Epithel, UA (test code = 56472-1) See_Comment [Automated message] The system which generated this result transmitted reference range: /HPF. The reference range was not used to interpret this result as normal/abnormal. Specimen Source (test code = 2795) LYNDSAY (test code = LYNDSAY) Unit Coordinator ID - [auto]Unit Coordinator ID - tech Lab Interpretation (test code = 12567-7) [facility]normal [facility]scopic + Reflex to Culture 2023-03-30 08:43:51* Test Item Value Reference Range Interpretation Comme nts Color, UA (test code = 5778-6) Yellow Clarity, UA (test code = 5767-9) Clear Specific [place], UA (test code = 5811-5) 1.033 1.001-1.035 pH, UA (test code = 5803-2) 6.0 5.0-8.0 Protein, UA (test code = 20466-9) 30 mg/dL Negative A Glucose, UA (test code = 365) Negative Negative Ketones, UA (test code = 2514-8) Negative Negative Bilirubin, UA (test code = 18727-5) Negative Negative Blood, UA (test code = 01791-9) Small Negative A Nitrite, UA (test code = 5802-4) Negative Negative Leukocytes, UA (test code = 5799-2) Negative Negative Urobilinogen, UA (test code = 10643-3) 0.2 0.2-1.0 RBC, UA (test code = 94844-3) 51 See_Comment [Automated message] The system which [...] Occasional Squam Epithel, UA (test code = 96908-8) See_Comment [Automated message] The system which generated this result transmitted reference range: /HPF. The reference range was not used to interpret this result as normal/abnormal. Specimen Source (test code = 2795) LYNDSAY (test code = LYNDSAY) Unit Coordinator ID - [auto]Unit Coordinator ID - tech Lab Interpretation (test code = 39655-2) [facility]normal [facility] + Reflex to Culture 2023-03-30 08:43:51* Test Item Value Reference Range Interpretation Comme nts Color, UA (test code = 5778-6) Yellow Clarity, UA (test code = 5767-9) Clear Specific [place], UA (test code = 5811-5) 1.033 1.001-1.035 pH, UA (test code = 5803-2) 6.0 5.0-8.0 Protein, UA (test code = 41485-2) 30 mg/dL Negative A Glucose, UA (test code = 365) Negative Negative Ketones, UA (test code = 2514-8) Negative Negative Bilirubin, UA (test code = 69768-2) Negative Negative Blood, UA (test code = 06509-2) Small Negative A Nitrite, UA (test code = 5802-4) Negative Negative Leukocytes, UA (test code = 5799-2) Negative Negative Urobilinogen, UA (test code = 11044-5) 0.2 0.2-1.0 RBC, UA (test code = 12299-1) 51 See_Comment [Automated message] The system which [...] Occasional Squam Epithel, UA (test code = 97512-0) See_Comment [Automated message] The system which generated this result transmitted reference range: /HPF. The reference range was not used to interpret this result as normal/abnormal. Specimen Source (test code = 2795) LYNDSAY (test code = LYNDSAY) Unit Coordinator ID - [auto]Unit Coordinator ID - tech Lab Interpretation (test code = 69809-4) [facility]-30 08:43:51* Test Item Value Reference Range Interpretation Comme nts Color, UA (test code = 5778-6) Yellow Clarity, UA (test code = 5767-9) Clear Specific [place], UA (test code = 5811-5) 1.033 1.001-1.035 pH, UA (test code = 5803-2) 6.0 5.0-8.0 Protein, UA (test code = 46236-2) 30 mg/dL Negative A Glucose, UA (test code = 365) Negative Negative Ketones, UA (test code = 2514-8) Negative Negative Bilirubin, UA (test code = 34749-3) Negative Negative Blood, UA (test code = 91480-8) Small Negative A Nitrite, UA (test code = 5802-4) Negative Negative Leukocytes, UA (test code = 5799-2) Negative Negative Urobilinogen, UA (test code = 93739-1) 0.2 0.2-1.0 RBC, UA (test code = 73513-2) 51 See_Comment [Automated message] The system which [...] Occasional Squam Epithel, UA (test code = 19665-0) See_Comment [Automated message] The system which generated this result transmitted reference range: /HPF. The reference range was not used to interpret this result as normal/abnormal. Specimen Source (test code = 2795) LYNDSAY (test code = LYNDSAY) Unit Coordinator ID - [auto]Unit Coordinator ID - tech Lab Interpretation (test code = 71933-4) [facility] 2023-03-30 08:43:51* Test Item Value Reference Range Interpretation Comme nts Color, UA (test code = 5778-6) Yellow Clarity, UA (test code = 5767-9) Clear Specific [place], UA (test code = 5811-5) 1.033 1.001-1.035 pH, UA (test code = 5803-2) 6.0 5.0-8.0 Protein, UA (test code = 37510-5) 30 mg/dL Negative A Glucose, UA (test code = 365) Negative Negative Ketones, UA (test code = 2514-8) Negative Negative Bilirubin, UA (test code = 18612-5) Negative Negative Blood, UA (test code = 12415-0) Small Negative A Nitrite, UA (test code = 5802-4) Negative Negative Leukocytes, UA (test code = 5799-2) Negative Negative Urobilinogen, UA (test code = 49718-6) 0.2 0.2-1.0 RBC, UA (test code = 78307-6) 51 See_Comment [Automated message] The system which [...] Occasional Squam Epithel, UA (test code = 50991-4) See_Comment [Automated message] The system which generated this result transmitted reference range: /HPF. The reference range was not used to interpret this result as normal/abnormal. Specimen Source (test code = 2795) LYNDSAY (test code = LYNDSAY) Unit Coordinator ID - [auto]Unit Coordinator ID - tech Lab Interpretation (test code = 12988-7) [facility] Culture 2023-03-30 08:43:51* Test Item Value Reference Range Interpretation Comme nts Color, UA (test code = 5778-6) Yellow Clarity, UA (test code = 5767-9) Clear Specific [place], UA (test code = 5811-5) 1.033 1.001-1.035 pH, UA (test code = 5803-2) 6.0 5.0-8.0 Protein, UA (test code = 79947-7) 30 mg/dL Negative A Glucose, UA (test code = 365) Negative Negative Ketones, UA (test code = 2514-8) Negative Negative Bilirubin, UA (test code = 81369-2) Negative Negative Blood, UA (test code = 85397-4) Small Negative A Nitrite, UA (test code = 5802-4) Negative Negative Leukocytes, UA (test code = 5799-2) Negative Negative Urobilinogen, UA (test code = 71500-2) 0.2 0.2-1.0 RBC, UA (test code = 54668-7) 51 See_Comment [Automated message] The system which [...] Occasional Squam Epithel, UA (test code = 37239-2) See_Comment [Automated message] The system which generated this result transmitted reference range: /HPF. The reference range was not used to interpret this result as normal/abnormal. Specimen Source (test code = 2795) LYNDSAY (test code = LYNDSAY) Unit Coordinator ID - [auto]Unit Coordinator ID - tech Lab Interpretation (test code = 04578-3) [facility] Culture 2023-03-30 08:43:51* Test Item Value Reference Range Interpretation Comme nts Color, UA (test code = 5778-6) Yellow Clarity, UA (test code = 5767-9) Clear Specific [place], UA (test code = 5811-5) 1.033 1.001-1.035 pH, UA (test code = 5803-2) 6.0 5.0-8.0 Protein, UA (test code = 26774-5) 30 mg/dL Negative A Glucose, UA (test code = 365) Negative Negative Ketones, UA (test code = 2514-8) Negative Negative Bilirubin, UA (test code = 98194-3) Negative Negative Blood, UA (test code = 14501-0) Small Negative A Nitrite, UA (test code = 5802-4) Negative Negative Leukocytes, UA (test code = 5799-2) Negative Negative Urobilinogen, UA (test code = 62933-4) 0.2 0.2-1.0 RBC, UA (test code = 08702-3) 51 See_Comment [Automated message] The system which [...] Occasional Squam Epithel, UA (test code = 22428-0) See_Comment [Automated message] The system which generated this result transmitted reference range: /HPF. The reference range was not used to interpret this result as normal/abnormal. Specimen Source (test code = 2795) LYNDSAY (test code = LYNDSAY) Unit Coordinator ID - [auto]Unit Coordinator ID - tech Lab Interpretation (test code = 19729-7) [facility] 2023-[facility]-30 08:43:51* Test Item Value Reference Range Interpretation Comme nts Color, UA (test code = 5778-6) Yellow Clarity, UA (test code = 5767-9) Clear Specific [place], UA (test code = 5811-5) 1.033 1.001-1.035 pH, UA (test code = 5803-2) 6.0 5.0-8.0 Protein, UA (test code = 39245-4) 30 mg/dL Negative A Glucose, UA (test code = 365) Negative Negative Ketones, UA (test code = 2514-8) Negative Negative Bilirubin, UA (test code = 28593-4) Negative Negative Blood, UA (test code = 78549-0) Small Negative A Nitrite, UA (test code = 5802-4) Negative Negative Leukocytes, UA (test code = 5799-2) Negative Negative Urobilinogen, UA (test code = 36699-8) 0.2 0.2-1.0 RBC, UA (test code = 69508-2) 51 See_Comment [Automated message] The system which [...] Occasional Squam Epithel, UA (test code = 82194-5) See_Comment [Automated message] The system which generated this result transmitted reference range: /HPF. The reference range was not used to interpret this result as normal/abnormal. Specimen Source (test code = 2795) LYNDSAY (test code = LYNDSAY) Unit Coordinator ID - [auto]Unit Coordinator ID - tech Lab Interpretation (test code = 27102-0) [facility] Reflex [facility] Culture 2023-03-30 08:43:51* Test Item Value Reference Range Interpretation Comme nts Color, UA (test code = 5778-6) Yellow Clarity, UA (test code = 5767-9) Clear Specific [place], UA (test code = 5811-5) 1.033 1.001-1.035 pH, UA (test code = 5803-2) 6.0 5.0-8.0 Protein, UA (test code = 72313-3) 30 mg/dL Negative A Glucose, UA (test code = 365) Negative Negative Ketones, UA (test code = 2514-8) Negative Negative Bilirubin, UA (test code = 16971-8) Negative Negative Blood, UA (test code = 82961-0) Small Negative A Nitrite, UA (test code = 5802-4) Negative Negative Leukocytes, UA (test code = 5799-2) Negative Negative Urobilinogen, UA (test code = 29619-1) 0.2 0.2-1.0 RBC, UA (test code = 48314-9) 51 See_Comment [Automated message] The system which [...] Occasional Squam Epithel, UA (test code = 03507-8) See_Comment [Automated message] The system which generated this result transmitted reference range: /HPF. The reference range was not used to interpret this result as normal/abnormal. Specimen Source (test code = 2795) LYNDSAY (test code = LYNDSAY) Unit Coordinator ID - [auto]Unit Coordinator ID - tech Lab Interpretation (test code = 74819-3) [facility] Reflex [facility] Culture 2023-03-30 08:43:51* Test Item Value Reference Range Interpretation Comme nts Color, UA (test code = 5778-6) Yellow Clarity, UA (test code = 5767-9) Clear Specific [place], UA (test code = 5811-5) 1.033 1.001-1.035 pH, UA (test code = 5803-2) 6.0 5.0-8.0 Protein, UA (test code = 29521-1) 30 mg/dL Negative A Glucose, UA (test code = 365) Negative Negative Ketones, UA (test code = 2514-8) Negative Negative Bilirubin, UA (test code = 39522-0) Negative Negative Blood, UA (test code = 06903-3) Small Negative A Nitrite, UA (test code = 5802-4) Negative Negative Leukocytes, UA (test code = 5799-2) Negative Negative Urobilinogen, UA (test code = 40208-1) 0.2 0.2-1.0 RBC, UA (test code = 68877-5) 51 See_Comment [Automated message] The system which [...] Occasional Squam Epithel, UA (test code = 47476-3) See_Comment [Automated message] The system which generated this result transmitted reference range: /HPF. The reference range was not used to interpret this result as normal/abnormal. Specimen Source (test code = 2795) LYNDSAY (test code = LYNDSAY) Unit Coordinator ID - [auto]Unit Coordinator ID - tech Lab Interpretation (test code = 42986-6) [facility] Reflex to Culture 2023-03-30 08:43:51* Test Item Value Reference Range Interpretation Comme nts Color, UA (test code = 5778-6) Yellow Clarity, UA (test code = 5767-9) Clear Specific [place], UA (test code = 5811-5) 1.033 1.001-1.035 pH, UA (test code = 5803-2) 6.0 5.0-8.0 Protein, UA (test code = 25036-1) 30 mg/dL Negative A Glucose, UA (test code = 365) Negative Negative Ketones, UA (test code = 2514-8) Negative Negative Bilirubin, UA (test code = 27759-7) Negative Negative Blood, UA (test code = 78909-9) Small Negative A Nitrite, UA (test code = 5802-4) Negative Negative Leukocytes, UA (test code = 5799-2) Negative Negative Urobilinogen, UA (test code = 63088-0) 0.2 0.2-1.0 RBC, UA (test code = 27338-9) 51 See_Comment [Automated message] The system which [...] Occasional Squam Epithel, UA (test code = 33457-8) See_Comment [Automated message] The system which generated this result transmitted reference range: /HPF. The reference range was not used to interpret this result as normal/abnormal. Specimen Source (test code = 2795) LYNDSAY (test code = LYNDSAY) Unit Coordinator ID - [auto]Unit Coordinator ID - tech Lab Interpretation (test code = 31359-3) [facility] Culture 2023-03-30 08:43:51* Test Item Value Reference Range Interpretation Comme nts Color, UA (test code = 5778-6) Yellow Clarity, UA (test code = 5767-9) Clear Specific [place], UA (test code = 5811-5) 1.033 1.001-1.035 pH, UA (test code = 5803-2) 6.0 5.0-8.0 Protein, UA (test code = 85822-1) 30 mg/dL Negative A Glucose, UA (test code = 365) Negative Negative Ketones, UA (test code = 2514-8) Negative Negative Bilirubin, UA (test code = 70255-7) Negative Negative Blood, UA (test code = 15322-4) Small Negative A Nitrite, UA (test code = 5802-4) Negative Negative Leukocytes, UA (test code = 5799-2) Negative Negative Urobilinogen, UA (test code = 51943-4) 0.2 0.2-1.0 RBC, UA (test code = 83699-3) 51 See_Comment [Automated message] The system which [...] Occasional Squam Epithel, UA (test code = 58709-7) See_Comment [Automated message] The system which generated this result transmitted reference range: /HPF. The reference range was not used to interpret this result as normal/abnormal. Specimen Source (test code = 2795) LYNDSAY (test code = LYNDSAY) Unit Coordinator ID - [auto]Unit Coordinator ID - tech Lab Interpretation (test code = 01880-4) [facility] Reflex to Culture 2023-03-30 08:43:51* Test Item Value Reference Range Interpretation Comme nts Color, UA (test code = 5778-6) Yellow Clarity, UA (test code = 5767-9) Clear Specific [place], UA (test code = 5811-5) 1.033 1.001-1.035 pH, UA (test code = 5803-2) 6.0 5.0-8.0 Protein, UA (test code = 28425-7) 30 mg/dL Negative A Glucose, UA (test code = 365) Negative Negative Ketones, UA (test code = 2514-8) Negative Negative Bilirubin, UA (test code = 94845-1) Negative Negative Blood, UA (test code = 85497-6) Small Negative A Nitrite, UA (test code = 5802-4) Negative Negative Leukocytes, UA (test code = 5799-2) Negative Negative Urobilinogen, UA (test code = 13411-5) 0.2 0.2-1.0 RBC, UA (test code = 36438-6) 51 See_Comment [Automated message] The system which [...] Occasional Squam Epithel, UA (test code = 37095-7) See_Comment [Automated message] The system which generated this result transmitted reference range: /HPF. The reference range was not used to interpret this result as normal/abnormal. Specimen Source (test code = 2795) LYNDSAY (test code = LYNDSAY) Unit Coordinator ID - [auto]Unit Coordinator ID - tech Lab Interpretation (test code = 93565-2) [facility] Reflex [facility] Culture 2023-03-30 08:43:51* Test Item Value Reference Range Interpretation Comme nts Color, UA (test code = 5778-6) Yellow Clarity, UA (test code = 5767-9) Clear Specific [place], UA (test code = 5811-5) 1.033 1.001-1.035 pH, UA (test code = 5803-2) 6.0 5.0-8.0 Protein, UA (test code = 80834-0) 30 mg/dL Negative A Glucose, UA (test code = 365) Negative Negative Ketones, UA (test code = 2514-8) Negative Negative Bilirubin, UA (test code = 35037-6) Negative Negative Blood, UA (test code = 60373-3) Small Negative A Nitrite, UA (test code = 5802-4) Negative Negative Leukocytes, UA (test code = 5799-2) Negative Negative Urobilinogen, UA (test code = 74609-2) 0.2 0.2-1.0 RBC, UA (test code = 46532-4) 51 See_Comment [Automated message] The system which [...] Occasional Squam Epithel, UA (test code = 38381-0) See_Comment [Automated message] The system which generated this result transmitted reference range: /HPF. The reference range was not used to interpret this result as normal/abnormal. Specimen Source (test code = 2795) LYNDSAY (test code = LYNDSAY) Unit Coordinator ID - [auto]Unit Coordinator ID - tech Lab Interpretation (test code = 71617-1) [facility] Reflex to Culture 2023-03-30 08:43:51* Test Item Value Reference Range Interpretation Comme nts Color, UA (test code = 5778-6) Yellow Clarity, UA (test code = 5767-9) Clear Specific [place], UA (test code = 5811-5) 1.033 1.001-1.035 pH, UA (test code = 5803-2) 6.0 5.0-8.0 Protein, UA (test code = 63942-1) 30 mg/dL Negative A Glucose, UA (test code = 365) Negative Negative Ketones, UA (test code = 2514-8) Negative Negative Bilirubin, UA (test code = 99142-9) Negative Negative Blood, UA (test code = 69089-6) Small Negative A Nitrite, UA (test code = 5802-4) Negative Negative Leukocytes, UA (test code = 5799-2) Negative Negative Urobilinogen, UA (test code = 52034-2) 0.2 0.2-1.0 RBC, UA (test code = 87372-4) 51 See_Comment [Automated message] The system which [...] Occasional Squam Epithel, UA (test code = 64063-2) See_Comment [Automated message] The system which generated this result transmitted reference range: /HPF. The reference range was not used to interpret this result as normal/abnormal. Specimen Source (test code = 2795) LYNDSAY (test code = LYNDSAY) Unit Coordinator ID - [auto]Unit Coordinator ID - tech Lab Interpretation (test code = 29548-4) [facility] Reflex to Culture 2023-03-30 08:43:51* Test Item Value Reference Range Interpretation Comme nts Color, UA (test code = 5778-6) Yellow Clarity, UA (test code = 5767-9) Clear Specific [place], UA (test code = 5811-5) 1.033 1.001-1.035 pH, UA (test code = 5803-2) 6.0 5.0-8.0 Protein, UA (test code = 97211-1) 30 mg/dL Negative A Glucose, UA (test code = 365) Negative Negative Ketones, UA (test code = 2514-8) Negative Negative Bilirubin, UA (test code = 41934-2) Negative Negative Blood, UA (test code = 59367-3) Small Negative A Nitrite, UA (test code = 5802-4) Negative Negative Leukocytes, UA (test code = 5799-2) Negative Negative Urobilinogen, UA (test code = 58058-8) 0.2 0.2-1.0 RBC, UA (test code = 40423-8) 51 See_Comment [Automated message] The system which [...] Occasional Squam Epithel, UA (test code = 10074-4) See_Comment [Automated message] The system which generated this result transmitted reference range: /HPF. The reference range was not used to interpret this result as normal/abnormal. Specimen Source (test code = 2795) LYNDSAY (test code = LYNDSAY) Unit Coordinator ID - [auto]Unit Coordinator ID - tech Lab Interpretation (test code = 80831-4) [facility] Reflex to Culture 2023-03-30 08:43:51* Test Item Value Reference Range Interpretation Comme nts Color, UA (test code = 5778-6) Yellow Clarity, UA (test code = 5767-9) Clear Specific [place], UA (test code = 5811-5) 1.033 1.001-1.035 pH, UA (test code = 5803-2) 6.0 5.0-8.0 Protein, UA (test code = 39052-0) 30 mg/dL Negative A Glucose, UA (test code = 365) Negative Negative Ketones, UA (test code = 2514-8) Negative Negative Bilirubin, UA (test code = 63461-1) Negative Negative Blood, UA (test code = 28550-1) Small Negative A Nitrite, UA (test code = 5802-4) Negative Negative Leukocytes, UA (test code = 5799-2) Negative Negative Urobilinogen, UA (test code = 33567-0) 0.2 0.2-1.0 RBC, UA (test code = 27503-7) 51 See_Comment [Automated message] The system which [...] Occasional Squam Epithel, UA (test code = 06665-4) See_Comment [Automated message] The system which generated this result transmitted reference range: /HPF. The reference range was not used to interpret this result as normal/abnormal. Specimen Source (test code = 2795) LYNDSAY (test code = LYNDSAY) Unit Coordinator ID - [auto]Unit Coordinator ID - tech Lab Interpretation (test code = 26612-4) [facility] Reflex [facility] Culture 2023-03-30 08:43:51* Test Item Value Reference Range Interpretation Comme nts Color, UA (test code = 5778-6) Yellow Clarity, UA (test code = 5767-9) Clear Specific [place], UA (test code = 5811-5) 1.033 1.001-1.035 pH, UA (test code = 5803-2) 6.0 5.0-8.0 Protein, UA (test code = 52748-6) 30 mg/dL Negative A Glucose, UA (test code = 365) Negative Negative Ketones, UA (test code = 2514-8) Negative Negative Bilirubin, UA (test code = 18082-4) Negative Negative Blood, UA (test code = 68009-9) Small Negative A Nitrite, UA (test code = 5802-4) Negative Negative Leukocytes, UA (test code = 5799-2) Negative Negative Urobilinogen, UA (test code = 11897-8) 0.2 0.2-1.0 RBC, UA (test code = 40535-0) 51 See_Comment [Automated message] The system which [...] Occasional Squam Epithel, UA (test code = 25244-4) See_Comment [Automated message] The system which generated this result transmitted reference range: /HPF. The reference range was not used to interpret this result as normal/abnormal. Specimen Source (test code = 2795) LYNDSAY (test code = LYNDSAY) Unit Coordinator ID - [auto]Unit Coordinator ID - tech Lab Interpretation (test code = 65791-1) [facility] Reflex [facility] Culture 2023-03-30 08:43:51* Test Item Value Reference Range Interpretation Comme nts Color, UA (test code = 5778-6) Yellow Clarity, UA (test code = 5767-9) Clear Specific [place], UA (test code = 5811-5) 1.033 1.001-1.035 pH, UA (test code = 5803-2) 6.0 5.0-8.0 Protein, UA (test code = 56109-5) 30 mg/dL Negative A Glucose, UA (test code = 365) Negative Negative Ketones, UA (test code = 2514-8) Negative Negative Bilirubin, UA (test code = 02207-9) Negative Negative Blood, UA (test code = 21706-3) Small Negative A Nitrite, UA (test code = 5802-4) Negative Negative Leukocytes, UA (test code = 5799-2) Negative Negative Urobilinogen, UA (test code = 56833-1) 0.2 0.2-1.0 RBC, UA (test code = 23709-0) 51 See_Comment [Automated message] The system which [...] Occasional Squam Epithel, UA (test code = 43378-0) See_Comment [Automated message] The system which generated this result transmitted reference range: /HPF. The reference range was not used to interpret this result as normal/abnormal. Specimen Source (test code = 2795) LYNDSAY (test code = LYNDSAY) Unit Coordinator ID - [auto]Unit Coordinator ID - tech Lab Interpretation (test code = 58162-6) [facility] Reflex [facility] Culture 2023-03-30 08:43:51* Test Item Value Reference Range Interpretation Comme nts Color, UA (test code = 5778-6) Yellow Clarity, UA (test code = 5767-9) Clear Specific [place], UA (test code = 5811-5) 1.033 1.001-1.035 pH, UA (test code = 5803-2) 6.0 5.0-8.0 Protein, UA (test code = 19414-0) 30 mg/dL Negative A Glucose, UA (test code = 365) Negative Negative Ketones, UA (test code = 2514-8) Negative Negative Bilirubin, UA (test code = 38993-8) Negative Negative Blood, UA (test code = 74480-3) Small Negative A Nitrite, UA (test code = 5802-4) Negative Negative Leukocytes, UA (test code = 5799-2) Negative Negative Urobilinogen, UA (test code = 47199-7) 0.2 0.2-1.0 RBC, UA (test code = 57143-7) 51 See_Comment [Automated message] The system which [...] Occasional Squam Epithel, UA (test code = 87280-7) See_Comment [Automated message] The system which generated this result transmitted reference range: /HPF. The reference range was not used to interpret this result as normal/abnormal. Specimen Source (test code = 2795) LYNDSAY (test code = LYNDSAY) Unit Coordinator ID - [auto]Unit Coordinator ID - tech Lab Interpretation (test code = 17897-5) [facility] Reflex [facility] Culture 2023-03-30 08:43:51* Test Item Value Reference Range Interpretation Comme nts Color, UA (test code = 5778-6) Yellow Clarity, UA (test code = 5767-9) Clear Specific [place], UA (test code = 5811-5) 1.033 1.001-1.035 pH, UA (test code = 5803-2) 6.0 5.0-8.0 Protein, UA (test code = 72978-0) 30 mg/dL Negative A Glucose, UA (test code = 365) Negative Negative Ketones, UA (test code = 2514-8) Negative Negative Bilirubin, UA (test code = 47482-2) Negative Negative Blood, UA (test code = 16347-1) Small Negative A Nitrite, UA (test code = 5802-4) Negative Negative Leukocytes, UA (test code = 5799-2) Negative Negative Urobilinogen, UA (test code = 19446-1) 0.2 0.2-1.0 RBC, UA (test code = 81683-0) 51 See_Comment [Automated message] The system which [...] Occasional Squam Epithel, UA (test code = 42482-9) See_Comment [Automated message] The system which generated this result transmitted reference range: /HPF. The reference range was not used to interpret this result as normal/abnormal. Specimen Source (test code = 2795) LYNDSAY (test code = LYNDSAY) Unit Coordinator ID - [auto]Unit Coordinator ID - tech Lab Interpretation (test code = 03435-3) [facility] Reflex to Culture 2023-03-30 08:43:51* Test Item Value Reference Range Interpretation Comme nts Color, UA (test code = 5778-6) Yellow Clarity, UA (test code = 5767-9) Clear Specific [place], UA (test code = 5811-5) 1.033 1.001-1.035 pH, UA (test code = 5803-2) 6.0 5.0-8.0 Protein, UA (test code = 42233-6) 30 mg/dL Negative A Glucose, UA (test code = 365) Negative Negative Ketones, UA (test code = 2514-8) Negative Negative Bilirubin, UA (test code = 22577-4) Negative Negative Blood, UA (test code = 10068-1) Small Negative A Nitrite, UA (test code = 5802-4) Negative Negative Leukocytes, UA (test code = 5799-2) Negative Negative Urobilinogen, UA (test code = 12482-8) 0.2 0.2-1.0 RBC, UA (test code = 60793-7) 51 See_Comment [Automated message] The system which [...] Occasional Squam Epithel, UA (test code = 05500-7) See_Comment [Automated message] The system which generated this result transmitted reference range: /HPF. The reference range was not used to interpret this result as normal/abnormal. Specimen Source (test code = 2795) LYNDSAY (test code = LYNDSAY) Unit Coordinator ID - [auto]Unit Coordinator ID - tech Lab Interpretation (test code = 28595-3) [facility] Reflex [facility] Culture 2023-03-30 08:43:51* Test Item Value Reference Range Interpretation Comme nts Color, UA (test code = 5778-6) Yellow Clarity, UA (test code = 5767-9) Clear Specific [place], UA (test code = 5811-5) 1.033 1.001-1.035 pH, UA (test code = 5803-2) 6.0 5.0-8.0 Protein, UA (test code = 34584-5) 30 mg/dL Negative A Glucose, UA (test code = 365) Negative Negative Ketones, UA (test code = 2514-8) Negative Negative Bilirubin, UA (test code = 23590-4) Negative Negative Blood, UA (test code = 87477-0) Small Negative A Nitrite, UA (test code = 5802-4) Negative Negative Leukocytes, UA (test code = 5799-2) Negative Negative Urobilinogen, UA (test code = 13849-9) 0.2 0.2-1.0 RBC, UA (test code = 65933-9) 51 See_Comment [Automated message] The system which [...] Occasional Squam Epithel, UA (test code = 07128-2) See_Comment [Automated message] The system which generated this result transmitted reference range: /HPF. The reference range was not used to interpret this result as normal/abnormal. Specimen Source (test code = 2795) LYNDSAY (test code = LYNDSAY) Unit Coordinator ID - [auto]Unit Coordinator ID - tech Lab Interpretation (test code = 64777-8) [facility] Reflex [facility] Culture 2023-03-30 08:43:51* Test Item Value Reference Range Interpretation Comme nts Color, UA (test code = 5778-6) Yellow Clarity, UA (test code = 5767-9) Clear Specific [place], UA (test code = 5811-5) 1.033 1.001-1.035 pH, UA (test code = 5803-2) 6.0 5.0-8.0 Protein, UA (test code = 30917-6) 30 mg/dL Negative A Glucose, UA (test code = 365) Negative Negative Ketones, UA (test code = 2514-8) Negative Negative Bilirubin, UA (test code = 55072-7) Negative Negative Blood, UA (test code = 05614-7) Small Negative A Nitrite, UA (test code = 5802-4) Negative Negative Leukocytes, UA (test code = 5799-2) Negative Negative Urobilinogen, UA (test code = 17400-7) 0.2 0.2-1.0 RBC, UA (test code = 94707-2) 51 See_Comment [Automated message] The system which [...] Occasional Squam Epithel, UA (test code = 03948-4) See_Comment [Automated message] The system which generated this result transmitted reference range: /HPF. The reference range was not used to interpret this result as normal/abnormal. Specimen Source (test code = 2795) LYNDSAY (test code = LYNDSAY) Unit Coordinator ID - [auto]Unit Coordinator ID - tech Lab Interpretation (test code = 69246-3) [facility] 2023-03-30 08:43:51* Test Item Value Reference Range Interpretation Comme nts Color, UA (test code = 5778-6) Yellow Clarity, UA (test code = 5767-9) Clear Specific [place], UA (test code = 5811-5) 1.033 1.001-1.035 pH, UA (test code = 5803-2) 6.0 5.0-8.0 Protein, UA (test code = 58540-8) 30 mg/dL Negative A Glucose, UA (test code = 365) Negative Negative Ketones, UA (test code = 2514-8) Negative Negative Bilirubin, UA (test code = 51065-9) Negative Negative Blood, UA (test code = 43977-4) Small Negative A Nitrite, UA (test code = 5802-4) Negative Negative Leukocytes, UA (test code = 5799-2) Negative Negative Urobilinogen, UA (test code = 74611-2) 0.2 0.2-1.0 RBC, UA (test code = 38597-3) 51 See_Comment [Automated message] The system which [...] Occasional Squam Epithel, UA (test code = 80108-5) See_Comment [Automated message] The system which generated this result transmitted reference range: /HPF. The reference range was not used to interpret this result as normal/abnormal. Specimen Source (test code = 2795) LYNDSAY (test code = LYNDSAY) Unit Coordinator ID - [auto]Unit Coordinator ID - tech Lab Interpretation (test code = 44834-0) [facility] Reflex [facility] Culture 2023-03-30 08:43:51* Test Item Value Reference Range Interpretation Comme nts Color, UA (test code = 5778-6) Yellow Clarity, UA (test code = 5767-9) Clear Specific [place], UA (test code = 5811-5) 1.033 1.001-1.035 pH, UA (test code = 5803-2) 6.0 5.0-8.0 Protein, UA (test code = 43470-3) 30 mg/dL Negative A Glucose, UA (test code = 365) Negative Negative Ketones, UA (test code = 2514-8) Negative Negative Bilirubin, UA (test code = 41101-7) Negative Negative Blood, UA (test code = 35225-4) Small Negative A Nitrite, UA (test code = 5802-4) Negative Negative Leukocytes, UA (test code = 5799-2) Negative Negative Urobilinogen, UA (test code = 61420-1) 0.2 0.2-1.0 RBC, UA (test code = 23862-1) 51 See_Comment [Automated message] The system which [...] Occasional Squam Epithel, UA (test code = 31698-9) See_Comment [Automated message] The system which generated this result transmitted reference range: /HPF. The reference range was not used to interpret this result as normal/abnormal. Specimen Source (test code = 2795) LYNDSAY (test code = LYNDSAY) Unit Coordinator ID - [auto]Unit Coordinator ID - tech Lab Interpretation (test code = 98282-2) [facility] Reflex to Culture 2023-03-30 08:43:51* Test Item Value Reference Range Interpretation Comme nts Color, UA (test code = 5778-6) Yellow Clarity, UA (test code = 5767-9) Clear Specific [place], UA (test code = 5811-5) 1.033 1.001-1.035 pH, UA (test code = 5803-2) 6.0 5.0-8.0 Protein, UA (test code = 39667-3) 30 mg/dL Negative A Glucose, UA (test code = 365) Negative Negative Ketones, UA (test code = 2514-8) Negative Negative Bilirubin, UA (test code = 88198-3) Negative Negative Blood, UA (test code = 36853-3) Small Negative A Nitrite, UA (test code = 5802-4) Negative Negative Leukocytes, UA (test code = 5799-2) Negative Negative Urobilinogen, UA (test code = 61977-4) 0.2 0.2-1.0 RBC, UA (test code = 17811-9) 51 See_Comment [Automated message] The system which [...] Occasional Squam Epithel, UA (test code = 59012-6) See_Comment [Automated message] The system which generated this result transmitted reference range: /HPF. The reference range was not used to interpret this result as normal/abnormal. Specimen Source (test code = 2795) LYNDSAY (test code = LYNDSAY) Unit Coordinator ID - [auto]Unit Coordinator ID - tech Lab Interpretation (test code = 51072-2) [facility] Reflex [facility] Culture 2023-03-30 08:43:51* Test Item Value Reference Range Interpretation Comme nts Color, UA (test code = 5778-6) Yellow Clarity, UA (test code = 5767-9) Clear Specific [place], UA (test code = 5811-5) 1.033 1.001-1.035 pH, UA (test code = 5803-2) 6.0 5.0-8.0 Protein, UA (test code = 97608-8) 30 mg/dL Negative A Glucose, UA (test code = 365) Negative Negative Ketones, UA (test code = 2514-8) Negative Negative Bilirubin, UA (test code = 19325-4) Negative Negative Blood, UA (test code = 73459-4) Small Negative A Nitrite, UA (test code = 5802-4) Negative Negative Leukocytes, UA (test code = 5799-2) Negative Negative Urobilinogen, UA (test code = 41585-3) 0.2 0.2-1.0 RBC, UA (test code = 55715-8) 51 See_Comment [Automated message] The system which [...] Occasional Squam Epithel, UA (test code = 59334-6) See_Comment [Automated message] The system which generated this result transmitted reference range: /HPF. The reference range was not used to interpret this result as normal/abnormal. Specimen Source (test code = 2795) LYNDSAY (test code = LYNDSAY) Unit Coordinator ID - [auto]Unit Coordinator ID - tech Lab Interpretation (test code = 14943-3) [facility] Reflex [facility] Culture 2023-03-30 08:43:51* Test Item Value Reference Range Interpretation Comme nts Color, UA (test code = 5778-6) Yellow Clarity, UA (test code = 5767-9) Clear Specific [place], UA (test code = 5811-5) 1.033 1.001-1.035 pH, UA (test code = 5803-2) 6.0 5.0-8.0 Protein, UA (test code = 64222-5) 30 mg/dL Negative A Glucose, UA (test code = 365) Negative Negative Ketones, UA (test code = 2514-8) Negative Negative Bilirubin, UA (test code = 40447-1) Negative Negative Blood, UA (test code = 15149-0) Small Negative A Nitrite, UA (test code = 5802-4) Negative Negative Leukocytes, UA (test code = 5799-2) Negative Negative Urobilinogen, UA (test code = 16149-3) 0.2 0.2-1.0 RBC, UA (test code = 12838-9) 51 See_Comment [Automated message] The system which [...] Occasional Squam Epithel, UA (test code = 21045-8) See_Comment [Automated message] The system which generated this result transmitted reference range: /HPF. The reference range was not used to interpret this result as normal/abnormal. Specimen Source (test code = 2795) LYNDSAY (test code = LYNDSAY) Unit Coordinator ID - [auto]Unit Coordinator ID - tech Lab Interpretation (test code = 28136-8) [facility] + Reflex to Culture 2023-03-30 08:43:51* Test Item Value Reference Range Interpretation Comme nts Color, UA (test code = 5778-6) Yellow Clarity, UA (test code = 5767-9) Clear Specific [place], UA (test code = 5811-5) 1.033 1.001-1.035 pH, UA (test code = 5803-2) 6.0 5.0-8.0 Protein, UA (test code = 08567-2) 30 mg/dL Negative A Glucose, UA (test code = 365) Negative Negative Ketones, UA (test code = 2514-8) Negative Negative Bilirubin, UA (test code = 55724-8) Negative Negative Blood, UA (test code = 55524-1) Small Negative A Nitrite, UA (test code = 5802-4) Negative Negative Leukocytes, UA (test code = 5799-2) Negative Negative Urobilinogen, UA (test code = 11638-3) 0.2 0.2-1.0 RBC, UA (test code = 21885-8) 51 See_Comment [Automated message] The system which [...] Occasional Squam Epithel, UA (test code = 66883-5) See_Comment [Automated message] The system which generated this result transmitted reference range: /HPF. The reference range was not used to interpret this result as normal/abnormal. Specimen Source (test code = 2795) LYNDSAY (test code = LYNDSAY) Unit Coordinator ID - [auto]Unit Coordinator ID - tech Lab Interpretation (test code = 43149-5) [facility] + Reflex to Culture 2023-03-30 08:43:51* Test Item Value Reference Range Interpretation Comme nts Color, UA (test code = 5778-6) Yellow Clarity, UA (test code = 5767-9) Clear Specific [place], UA (test code = 5811-5) 1.033 1.001-1.035 pH, UA (test code = 5803-2) 6.0 5.0-8.0 Protein, UA (test code = 55906-3) 30 mg/dL Negative A Glucose, UA (test code = 365) Negative Negative Ketones, UA (test code = 2514-8) Negative Negative Bilirubin, UA (test code = 92086-0) Negative Negative Blood, UA (test code = 53628-2) Small Negative A Nitrite, UA (test code = 5802-4) Negative Negative Leukocytes, UA (test code = 5799-2) Negative Negative Urobilinogen, UA (test code = 14909-8) 0.2 0.2-1.0 RBC, UA (test code = 80584-0) 51 See_Comment [Automated message] The system which [...] Occasional Squam Epithel, UA (test code = 72632-8) See_Comment [Automated message] The system which generated this result transmitted reference range: /HPF. The reference range was not used to interpret this result as normal/abnormal. Specimen Source (test code = 2795) LYNDSAY (test code = LYNDSAY) Unit Coordinator ID - [auto]Unit Coordinator ID - tech Lab Interpretation (test code = 84717-3) [facility] Reflex to Culture 2023-03-30 08:43:51* Test Item Value Reference Range Interpretation Comme nts Color, UA (test code = 5778-6) Yellow Clarity, UA (test code = 5767-9) Clear Specific [place], UA (test code = 5811-5) 1.033 1.001-1.035 pH, UA (test code = 5803-2) 6.0 5.0-8.0 Protein, UA (test code = 29314-2) 30 mg/dL Negative A Glucose, UA (test code = 365) Negative Negative Ketones, UA (test code = 2514-8) Negative Negative Bilirubin, UA (test code = 80075-7) Negative Negative Blood, UA (test code = 57411-0) Small Negative A Nitrite, UA (test code = 5802-4) Negative Negative Leukocytes, UA (test code = 5799-2) Negative Negative Urobilinogen, UA (test code = 76164-2) 0.2 0.2-1.0 RBC, UA (test code = 07346-9) 51 See_Comment [Automated message] The system which [...] Occasional Squam Epithel, UA (test code = 65128-0) See_Comment [Automated message] The system which generated this result transmitted reference range: /HPF. The reference range was not used to interpret this result as normal/abnormal. Specimen Source (test code = 2795) LYNDSAY (test code = LYNDSAY) Unit Coordinator ID - [auto]Unit Coordinator ID - tech Lab Interpretation (test code = 93869-7) [facility]FLEX URINE [id number] 08:43:51 * Test Item Value Reference Range [...] < /HPF SOURCE(BEAKER) (test code = 2795) Unit Coordinator ID - [auto]Unit Coordinator ID - techCOMPREHENSIVE METABOLIC [id number] 04:37:29* Test Item Value Reference Range Interpretation [...] GFR is not applicable for dialysis patients Unit Coordinator ID - MATT BPT/ELGL2093-31-58 04:30:17* Test Item Value Reference Range Interpretation Comme nts PROTIME (BEAKER) (test code = 759) 13.8 seconds 11.9-14.2 INR (BEAKER) (test code = 370) 1.13 See_Comment [Automated [employer]] The system which generated this result transmitted [...] code = 413) 0 /100 WBC 0-0 [id number]-[id number] 00:00:00Ordered by an unspecified provider.[facility] CenterEKG-PAUOICD8712-05-06 00:00:00Ordered by an unspecified provider. [facility] CenterEKG-BBDXMSG1116-72-92 00:00:00Ordered by an unspecified provider.[facility] CenterMAGNESIUM2023-05-25 17:14:06* Test Item Value Reference Range Interpretation Comme nts MAGNESIUM (test code = 1442969890) 1.9 mg/dL 1.7-2.4 Lab Interpretation (test cod e = 37290-7) [facility] (84703)2022-12-11 15:16:25* Test Item Value Reference Range Interpretation Comme nts NA (test code = 9961612555) 139 mmol/L 135-145 K (test code = 4984398807) 3.5 mmol/L 3.5-5.0 CL (test code = 1021350764) 107 mmol/L 98-108 CO2 TOTAL (test code = 4453928912) 24 mmol/L 23-31 AGAP (test code = 6509773861) 8 2-16 BUN (test code = 5172399270) 9 mg/dL 7-23 GLUCOSE (test code = 6282514008) 129 mg/dL 70-110 H CREATININE (test code = 3401592289) 0.68 mg/dL 0.50-1.04 TOTAL BILI (test code = 8098184513) 0.5 mg/dL 0.1-1.1 CALCIUM (test code = 2014225453) 8.9 mg/dL 8.6-10.6 T PROTEIN (test code = 8915778440) 6.3 g/dL 6.3-8.2 ALBUMIN (test code = 9995707267) 3.8 g/dL 3.5-5.0 ALK PHOS (test code = 3942146146) 87 U/L 34-122 ALTv (test code = 1742-6) 24 U/L 5-35 AST(SGOT) (test code = 2483282173) 21 U/L 13-40 eGFR (test code = 4918214822) 91.6 mL/min/1.73m2 LYNDSAY (test code = LYNDSAY) [...] imaging tests). Lab Interpretation (test code = 54289-4) Abnormal [facility] CenterTRKOLBYN [id number] 15:10:45* Test Item Value Reference Range Interpretation Comme nts TROPONIN I (test code = 2843496890) 0.015 ng/mL <=0.034 LYNDSAY (test code = [...] of biotin. Lab Interpretation (test code = 04370-6) Normal [facility] CenterN-TERMINAL [id number]-[id number] 15:07:48* Test Item Value Reference Range Interpretation Comme nts NT-proBNP (test code = 8684056060) 1460 pg/mL <=125 H LYNDSAY (test code = LYNDSAY) Biotin has been reported to cause a negative bias, interpret results relative to patient's use of biotin. Lab Interpretation (test code = 94509-2) Abnormal [facility] CenterD-YKGTR1862-57-36 14:45:24* Test Item Value Reference Range Interpretation Comments D-DIMER (test code = 6428658290) 0.99 See_Comment H [Automated message] The system [...] a diagnosis. Lab Interpretation (test code = 58194-8) Abnormal [facility] CenterCBC WITH [id number] 14:14:48* Test Item Value Reference Range Interpretation [...] g/dL 31.6-35.1 L RDW-SD (test code = 93427-2) 47.8 fL 39.0-49.9 RDW-CV (test code = 788-0) 16.9 % 12.0-15.5 H PLT (test code = 777-3) 507 See_Comment H [Automated messa ge] The system which generated this result transmitted reference range: 166 - 358 10*3/?L. The reference range was not used to interpret this result as normal/abnormal. MPV (test code = 09652-1) 8.2 fL 9.5-12.9 L NRBC/100 WBC (test code = 3901105917) 0.0 See_Comment [Automated [employer] ssage] The system which generated this result transmitted reference range: 0.0 - 10.0 /100 WBCs. The reference range was not used to interpret this result as normal/abnormal. NRBC x10^3 (test code = 8966689220) See_Comment [Automated messa ge] The system which generated this result transmitted reference range: 10*3/?L. The reference range was not used to interpret this result as normal/abnormal. GRAN MAT (NEUT) % (test code = 770-8) 64.5 % IMM GRAN % (test code = 9139793731) 0.30 % LYMPH % (test code = 736-9) 25.6 % MONO % (test code = 5905-5) 7.5 % EOS % (test code = 713-8) 1.0 % BASO % (test code = 706-2) 1.1 % GRAN MAT x10^3(ANC) (test code = 6095834252) 5.07 10*3/uL 1.88-7.09 IMM GRAN x10^3 (test code = 3176744017) 0.00-0.06 LYMPH x10^3 (test code = 731-0) 2.01 10*3/uL 1.32-3.29 MONO x10^3 (test code = 742-7) 0.59 10*3/uL 0.33-0.92 EOS x10^3 (test code = 711-2) 0.08 10*3/uL 0.03-0.39 BASO x10^3 (test code = 704-7) 0.09 10*3/uL 0.01-0.07 H Lab Interpretation (test code = 87583-7) [facility]normal [facility] CenterRPR2023-01-17 13:17:22* Test Item Value Reference Range Interpretation Comme nts RPR SCREEN ([employer]) (test co de = 420) Nonreactive Nonreactive HEMOGLOBIN [id number] 10:39:49* Test Item Value Reference Range Interpretation Comme nts HEMOGLOBIN A1C ELECTROPHORESIS ([employer]) (test code = 3811) 5.8 % See_Comment [...] 5.7- 6.4% indicates increased risk for diabetes (prediabetes)."Unit Coordinator ID - ADM VITAMIN [id number] 22:48:27* Test Item Value Reference Range Interpretation Comme nts VITAMIN B12 ([employer]) (test c ode = 774) 227 pg/mL 213-816 Unit Coordinator ID - MARCOTSH/FREE T4 IF [id number] 22:08:28* Test Item Value Reference Range Interpretation Comme nts THYROID STIMULATING HORMONE (BEAKER) (test code = 772) 3.309 uIU/mL 0.350-4.940 Unit Coordinator ID - JSHIV-1 ANTIGEN WITH HIV-1/2 [id number] 22:08:28* Test Item Value Reference Range Interpretation Comme nts HIV-1 ANTIGEN WITH HIV 1\\T\\2 ANTIBODY (2) (BEAKER) (test code = 2586) Nonreactive Nonreactive Unit Coordinator ID - JSC-REACTIVE [id number] 21:49:44* Test Item Value Reference Range Interpretation Comme nts C-REACTIVE PROTEIN (BEAKER) (test code = 676) 0.35 mg/dL 0.00-0.50 Unit Coordinator ID - JSCOMPREHENSIVE METABOLIC [id number] 21:49:43* Test Item Value Reference Range Interpretation [...] GFR is not applicable for dialysis patients Unit Coordinator ID - JSLIPID [id number] 21:49:43* Test Item Value Reference Range Interpretation [...] Borderline 130-159 High 160-189 Very High >=190 Unit Coordinator ID - JSCBC W/PLT COUNT & AUTO [id number] 21:34:03* Test Item Value Reference Range Interpretation [...] Interpretation Comme nts Height (test code = 3845820479) in Weight (test code = 5642070245) lbs Systolic BP (test code = 2414192530) mmHg Diastolic BP (test code = 3561789844) mmHg Heart Rate (test code = 3276296377) bpm BSA (test code = 7226321468) 2.00 m2 Ao root diam (test code = 9226628950) 3.20 cm Aortic root (test code = 3670120626) 3.2 cm Ao root annulus (test code = 1495375563) 3.2 cm LVOT diameter (test code = 7371406542) 1.99 cm LVOT area (test code = 4980860338) 3.10 cm2 LVIDD (test code = 6039237846) 5.10 cm Left Ventricular End Diastolic Volume by Teichholz Method (test code = 8487017) 123.0 mL IVS (test code = 0156596973) 1.34 cm Interventricular Septum Diastolic Thickness by 2D (test code = 5831869) 1.34 cm LVPWD (test code = 9808175666) 1.34 cm PW (test code = 9306555041) 1.34 cm 0.6-1.1 EF(Teich) (test code = 2983356191) 41.80 % LVIDS (test code = 0584063980) 4.00 cm Left Ventricular End Systolic Volume by Teichholz Method (test code = 0318560) 71.5 mL FS (test code = 4154957402) 21 % EF - 2D (test code = 46096425) 41.80 % LA size (test code = 7485213507) 4.6 cm Pulmonic Regurgitant End Max Velocity (test code = 7400628384) 119.4 cm/s LAV(MOD-sp4) (test code = 6365081278) 95.00 mL E wave decelartion time (test code = 8337642320) 0.15 s MV stenosis pressure 1/2 time (test code = 0982629297) 45.6 ms MV Peak A Evette (test code = 7573356901) 123.8 cm/s MV Peak E Evette (test code = 5873443941) 109.7 cm/s E/A ratio (test code = 6985933882) ratio MR max PG (test code = 3355805526) 87.20 mm[Hg] MR max evette (test code = 5850066838) 466.90 cm/s Mr max evette (test code = 1667059558) 466.9 m/s MV Prop V (test code = 5843545339) 51.00 cm/s MV E/e' septal (test code = 5290728966) 8.1 cm/s Tapse (test code = 6687730519) 2.21 cm LVOT stroke volume (test code = 8232928099) 49.80 cm3 LVOT peak evette (test code = 8487126648) 89.1 cm/s LVOT mn grad (test code = 0369886892) mmHg AV LVOT peak gradient (test code = 6488106970) mmHg LVOT peak VTI (test code = 5645977671) 16.0 cm LV V1 mean (test code = 0287813481) 64.30 cm/s Aortic valve mean velocity (test code = 7626503220) 133.8 cm/s Ao peak evette (test code = 0121316501) 175.3 cm/s Ao VTI (test code = 2596016961) 32.2 cm AV area by cont VTI (test code = 7294210098) 1.6 cm2 AV area peak evette (test code = 9676164865) 1.6 cm2 Ao max PG (test code = 5008882628) 12.30 mm[Hg] AV peak gradient (test code = 6771669994) mmHg AV valve area (test code = 3099102735) 1.55 cm2 AV mean gradient (test code = 1506091668) mmHg AV regurgitation pressure 1/2 time (test code = 5801361285) 358.5 ms AI dec slope (test code = 0420980656) 364.20 cm/s2 AI max evette (test code = 4618756891) 445.80 cm/s AI max PG (test code = 0883442802) 79.50 mm[Hg] Radiology Study observation (narrative) (test code = 67300-9) LYNDSAY (test code = LYNDSAY) ?Left?Ventricle: Left [...] mL of Lumason ultrasound enhancing agent used. [facility]PO[facility] ([facility])2022-08-01 10:43:32* Test Item Value Reference Range Interpretation Comme [facility] POCT GLU (test code = 4604732842) 148 mg/dL 70-110 H Lab Interpretation (test cod e = 91592-8) Abnormal [facility] CenterACTIVATED PARTIAL THRMPLAS [id number] 18:39:45* Test Item Value Reference Range Interpretation Comme [facility] APTT Patient (test code = 3173-2) See_Comment [Automated message] The system which generated this result transmitted reference range: 23 - 38 Seconds. The reference range was not used to interpret this result as normal/abnormal. LYNDSAY (test code = LYNDSAY) The [facility] patient population mean normal value for aPTT is 30 seconds. Lab Interpretation (test code = 12382-2) Normal [facility] CenterPROTHROMBIN TIME / [id number] 18:37:42* Test Item Value Reference Range Interpretation Comme [facility] PROTIME PATIENT (test code = 5964-2) See_Comment [Automated [employer]] The system which generated this result transmitted reference range: 12.0 - 14.7 Seconds. The reference range was not used to interpret this result as normal/abnormal. INR (test code = 6301-6) Normal INR <1.1; Warfarin Therapeutic range 2.0 to 3.0 or 2.5 to 3.5, depending upon the indications. Lab Interpretation (test code = 55117-2) Normal [facility] CenterTROPONIN [id number] 18:32:01* Test Item Value Reference Range Interpretation Comments TROPONIN I (test code = 6329140892) 0.019 ng/mL See_Comment [Automated message] The system [...] of biotin. Lab Interpretation (test code = 84846-3) Normal [facility] CenterN-TERMINAL [id number] 18:29:01* Test Item Value Reference Range Interpretation Comme nts NT-proBNP (test code = 7476314104) 2770 pg/mL See_Comment H [Automated message] The system which generated this result transmitted reference range: <=125. The reference range was not used to interpret this result as normal/abnormal. LYNDSAY (test code = LYNDSAY) Biotin has been reported to cause a negative bias, interpret results relative to patient's use of biotin. Lab Interpretation (test code = 50050-2) Abnormal [facility] CenterCOMP. METABOLIC PANEL (66819)2022-07-31 18:21:42* Test Item Value Reference Range Interpretation Comme nts NA (test code = 4645230531) 136 mmol/L 135-145 K (test code = 7383978618) 4.6 mmol/L 3.5-5.0 CL (test code = 4241630576) 104 mmol/L 98-108 CO2 TOTAL (test code = 7107787447) 26 mmol/L 23-31 AGAP (test code = 0292426576) 2-16 BUN (test code = 8174743416) 9 mg/dL 7-23 GLUCOSE (test code = 9492768860) 97 mg/dL 70-110 CREATININE (test code = 6191975571) 0.64 mg/dL 0.50-1.04 TOTAL BILI (test code = 3657565227) 0.5 mg/dL 0.1-1.1 CALCIUM (test code = 7629840603) 8.2 mg/dL 8.6-10.6 L T PROTEIN (test code = 1460966947) 6.5 g/dL 6.3-8.2 ALBUMIN (test code = 9506179737) 3.9 g/dL 3.5-5.0 ALK PHOS (test code = 3243192071) 93 U/L 34-122 ALTv (test code = 1742-6) 18 U/L 5-35 AST(SGOT) (test code = 8385864688) 19 U/L 13-40 eGFR (test code = 5268796492) mL/min/1.73m2 LYNDSAY (test code = LYNDSAY) Association [...] imaging tests). Lab Interpretation (test code = 33567-9) [facility]* Test Item Value Reference Range Interpretation Comme nts LIPASE (test code = 2686505254) 54 U/L 0-220 Lab Interpretation (test cod e = 91786-3) Normal [facility] CenterCBC WITH [id number] 18:07:00* Test Item Value Reference Range Interpretation Comme nts WBC (test code = 6690-2) See_Comment [Automated Need Fixeda ge] The system which generated this result [...] g/dL 31.6-35.1 L RDW-SD (test code = 23292-7) 53.1 fL 39.0-49.9 H RDW-CV (test code = 788-0) 17.0 % 12.0-15.5 H PLT (test code = 777-3) See_Comment H [Automated messa ge] The system which generated this result transmitted reference range: 166 - 358 10*3/?L. The reference range was not used to interpret this result as normal/abnormal. MPV (test code = 94387-5) 8.2 fL 9.5-12.9 L NRBC/100 WBC (test code = 0467080672) See_Comment [Automated me ssage] The system which generated this result transmitted reference range: 0.0 - 10.0 /100 WBCs. The reference range was not used to interpret this result as normal/abnormal. NRBC x10^3 (test code = 3316823293) See_Comment [Automated messa ge] The system which generated this result transmitted reference range: 10*3/?L. The reference range was not used to interpret this result as normal/abnormal. GRAN MAT (NEUT) % (test code = 770-8) 64.0 % IMM GRAN % (test code = 9471286522) 0.40 % LYMPH % (test code = 736-9) 27.3 % MONO % (test code = 5905-5) 6.5 % EOS % (test code = 713-8) 1.1 % BASO % (test code = 706-2) 0.7 % GRAN MAT x10^3(ANC) (test code = 4967240055) 5.46 10*3/uL 1.88-7.09 IMM GRAN x10^3 (test code = 9381129198) 0.03 10*3/uL 0.00-0.06 LYMPH x10^3 (test code = 731-0) 2.32 10*3/uL 1.32-3.29 MONO x10^3 (test code = 742-7) 0.55 10*3/uL 0.33-0.92 EOS x10^3 (test code = 711-2) 0.09 10*3/uL 0.03-0.39 BASO x10^3 (test code = 704-7) 0.06 10*3/uL 0.01-0.07 Lab Interpretation (test code = 77720-5) Abnormal [facility] METABOLIC PANEL (NA, K, CL, CO2, GLUCOSE, BUN, CREATININE, CA)2022-05-08 06:37:01* Test Item Value Reference Range Interpretation Comme nts NA (test code = 7007686022) 137 mmol/L 135-145 K (test code = 1673462055) 3.8 mmol/L 3.5-5 CL (test code = 0020258784) 103 mmol/L 98-108 CO2 TOTAL (test code = 7587915948) 24 mmol/L 23-31 AGAP (test code = 8896480244) 2-16 BUN (test code = 6910325378) 13 mg/dL 7-23 GLUCOSE (test code = 9126459645) 90 mg/dL 70-110 CREATININE (test code = 4498115817) 0.69 mg/dL 0.5-1.04 CALCIUM (test code = 2408320972) 8.5 mg/dL 8.6-10.6 L eGFR (test code = 4638229286) mL/min/1.73m2 LYNDSAY (test code = LYNDSAY) Association [...] imaging tests). Lab Interpretation (test code = 44788-2) [facility]normal [facility]20[facility] 06:37:01* Test Item Value Reference Range Interpretation Comme nts MAGNESIUM (test code = 1137403178) 2.1 mg/dL 1.7-2.4 Lab Interpretation (test cod e = 77062-8) Normal [facility] CenterPHOSPHORUS2022-10-20 06:37:01* Test Item Value Reference Range Interpretation Comme nts PHOSPHORUS (test code = 6827986530) 4.7 mg/dL 2.5-5 Lab Interpretation (test cod e = 59378-7) Normal [facility] CenterCBC WITH [id number] 06:11:54* Test Item Value Reference Range Interpretation [...] 32.4 g/dL 31.6-35.1 RDW-SD (test code = 71891-0) 51.0 fL 39-49.9 H RDW-CV (test code = 788-0) 16.5 % 12-15.5 H PLT (test code = 777-3) See_Comment H [Automated messa ge] The system which generated this result transmitted reference range: 166 - 358 10*3/?L. The reference range was not used to interpret this result as normal/abnormal. MPV (test code = 65819-9) 8.3 fL 9.5-12.9 L NRBC/100 WBC (test code = 9528841044) See_Comment [Automated me ssage] The system which generated this result transmitted reference range: 0.0 - 10.0 /100 WBCs. The reference range was not used to interpret this result as normal/abnormal. NRBC x10^3 (test code = 3491723610) See_Comment [Automated messa ge] The system which generated this result transmitted reference range: 10*3/?L. The reference range was not used to interpret this result as normal/abnormal. GRAN MAT (NEUT) % (test code = 770-8) 64.5 % IMM GRAN % (test code = 6923290342) 0.50 % LYMPH % (test code = 736-9) 27.1 % MONO % (test code = 5905-5) 6.6 % EOS % (test code = 713-8) 0.6 % BASO % (test code = 706-2) 0.7 % GRAN MAT x10^3(ANC) (test code = 9177604766) 5.28 10*3/uL 1.88-7.09 IMM GRAN x10^3 (test code = 6787510453) 0.04 10*3/uL 0-0.06 LYMPH x10^3 (test code = 731-0) 2.22 10*3/uL 1.32-3.29 MONO x10^3 (test code = 742-7) 0.54 10*3/uL 0.33-0.92 EOS x10^3 (test code = 711-2) 0.05 10*3/uL 0.03-0.39 BASO x10^3 (test code = 704-7) 0.06 10*3/uL 0.01-0.07 Lab Interpretation (test code = 78855-6) [facility]normal [facility] CenterPO[facility]SE (AUTOMATED)2022-05-07 01:18:10* Test Item Value Reference Range Interpretation Comme nts POCT GLU (test code = 0959709030) 120 mg/dL 70-110 H Lab Interpretation (test cod e = 01791-4) Abnormal [facility] CenterType and Screen - ONCE Hgspsbn7576-63-78 05:46:35* Test Item Value Reference Range Interpretation Comme nts ABO & RH (test code = 20) O POSITIVE Performed at [facility] B Laboratory Services - [facility] Blood [address] [address] Free: [phone] No. [id number] IAT (test code = 1185) Negative Performed at [facility] B Laboratory Services - [facility] Blood [place] [id number] Free: [phone] No. [id number] [facility] (NA, K, CL, CO2, GLUCOSE, BUN, CREATININE, CA)2022-05-05 08:22:57* Test Item Value Reference Range Interpretation Comme nts NA (test code = 6860210705) 136 mmol/L 135-145 K (test code = 8951519296) 4.9 mmol/L 3.5-5 CL (test code = 4960310858) 108 mmol/L 98-108 CO2 TOTAL (test code = 5453682046) 22 mmol/L 23-31 L AGAP (test code = 6116941057) 2-16 BUN (test code = 7509704627) 12 mg/dL 7-23 GLUCOSE (test code = 6459474662) 155 mg/dL 70-110 H CREATININE (test code = 4533066253) 0.63 mg/dL 0.5-1.04 CALCIUM (test code = 2748780709) 8.4 mg/dL 8.6-10.6 L eGFR (test code = 5028831776) mL/min/1.73m2 LYNDSAY (test code = LYNDSAY) Association [...] imaging tests). Lab Interpretation (test code = 84201-4) Abnormal [facility] CenterPROTHROMBIN TIME / [id number] 08:22:37* Test Item Value Reference Range Interpretation Comme [facility] PROTIME PATIENT (test code = 5964-2) See_Comment [Automated [employer]] The system which generated this result transmitted reference range: 10.1 - 12.6 Seconds. The reference range was not used to interpret this result as normal/abnormal. INR (test code = 6301-6) Normal INR <1.1; Warfarin Therapeutic range 2.0 to 3.0 or 2.5 to 3.5, depending upon the indications. Lab Interpretation (test code = 48465-4) Normal [facility] CenteraPTT2022-10-17 08:22:37* Test Item Value Reference Range Interpretation Comme [facility] APTT Patient (test code = 3173-2) See_Comment [[employer]] The system which generated this result transmitted reference range: 26 - 36 Seconds. The reference range was not used to interpret this result as normal/abnormal. Lab Interpretation (test code = 16894-0) Normal [facility] CenterFIBRINOGEN2022-10-17 08:22:37* Test Item Value Reference Range Interpretation Comme [facility] Fibrinogen (test code = 9146231686) 294 mg/dL 167-453 Lab Interpretation (test cod e = 93064-1) Normal [facility] CenterCBC WITH [id number] 08:15:01* Test Item Value Reference Range Interpretation Comme [facility] WBC (test code = 6690-2) See_Comment [Automated [employer]] The system which generated this result transmitted [...] g/dL 31.6-35.1 L RDW-SD (test code = 66464-6) 52.9 fL 39-49.9 H RDW-CV (test code = 788-0) 16.8 % 12-15.5 H PLT (test code = 777-3) See_Comment H [Automated messa ge] The system which generated this result transmitted reference range: 166 - 358 10*3/?L. The reference range was not used to interpret this result as normal/abnormal. MPV (test code = 10022-3) 8.3 fL 9.5-12.9 L NRBC/100 WBC (test code = 4185038559) See_Comment [Automated [employer] ssage] The system which generated this result transmitted reference range: 0.0 - 10.0 /100 WBCs. The reference range was not used to interpret this result as normal/abnormal. NRBC x10^3 (test code = 3555737632) See_Comment [Automated messa ge] The system which generated this result transmitted reference range: 10*3/?L. The reference range was not used to interpret this result as normal/abnormal. GRAN MAT (NEUT) % (test code = 770-8) 86.4 % IMM GRAN % (test code = 6876447671) 0.40 % LYMPH % (test code = 736-9) 11.7 % MONO % (test code = 5905-5) 1.1 % EOS % (test code = 713-8) 0.0 % BASO % (test code = 706-2) 0.4 % GRAN MAT x10^3(ANC) (test code = 0570186445) 6.36 10*3/uL 1.88-7.09 IMM GRAN x10^3 (test code = 9126128639) 0.03 10*3/uL 0-0.06 LYMPH x10^3 (test code = 731-0) 0.86 10*3/uL 1.32-3.29 L MONO x10^3 (test code = 742-7) 0.08 10*3/uL 0.33-0.92 L EOS x10^3 (test code = 711-2) 0.03-0.39 L BASO x10^3 (test code = 704-7) 0.03 10*3/uL 0.01-0.07 Lab Interpretation (test code = 47756-0) Abnormal [facility] CenterVITAMIN D, [id number] 20:14:03* Test Item Value Reference Range Interpretation Comme nts VIT D 25OH (test code = 34916-2) 22 ng/mL 25-80 L LYNDSAY (test code = LYNDSAY) Deficiency: <20 ng/mLInsufficiency: 20-24 ng/mLOptimal: 25-80 ng/mL Lab Interpretation (test code = 36098-1) Abnormal [facility] CenterBASI METABOLIC PANEL (NA, K, CL, CO2, GLUCOSE, BUN, CREATININE, CA)2022-04-15 11:27:57* Test Item Value Reference Range Interpretation Comme nts NA (test code = 7315541201) 138 mmol/L 135-145 K (test code = 0033896041) 3.9 mmol/L 3.5-5 CL (test code = 7358086639) 106 mmol/L 98-108 CO2 TOTAL (test code = 3590599645) 23 mmol/L 23-31 AGAP (test code = 4486099682) 2-16 BUN (test code = 8721574912) 10 mg/dL 7-23 GLUCOSE (test code = 5645157732) 91 mg/dL 70-110 CREATININE (test code = 2892977474) 0.65 mg/dL 0.5-1.04 CALCIUM (test code = 6302877491) 8.1 mg/dL 8.6-10.6 L eGFR (test code = 8638249688) mL/min/1.73m2 LYNDSAY (test code = LYNDSAY) Association [...] imaging tests). Lab Interpretation (test code = 28278-1) Abnormal [facility] CenterSTROKE Protocol - Transthoracic echo (TTE) 2022-04-14 22:07:33* Test Item Value Reference Range Interpretation Comme nts Height (test code = 1942427100) in Weight (test code = 5263689869) lbs Systolic BP (test code = 2399251332) mmHg Diastolic BP (test code = 2113496275) mmHg Heart Rate (test code = 7822325648) bpm BSA (test code = 2537024592) 1.94 m2 TASV (test code = 5642253339) 15.5 cm/s LVIDD (test code = 0422469736) 6.00 cm Left Ventricular End Diastolic Volume by Teichholz Method (test code = 6031719) 183.0 mL IVS (test code = 5431988755) 1.09 cm Interventricular Septum Diastolic Thickness by 2D (test code = 0862285) 1.09 cm LVPWD (test code = 4182240693) 0.94 cm PW (test code = 6026749041) 0.94 cm 0.6-1.1 EF(Teich) (test code = 9737040867) 40.30 % LVIDS (test code = 0808108136) 4.80 cm Left Ventricular End Systolic Volume by Teichholz Method (test code = 7767147) 109.2 mL FS (test code = 4315799338) 20 % EF - 2D (test code = 70311458) 40.30 % LVOT diameter (test code = 1809418476) 2.05 cm LVOT area (test code = 5363168127) 3.30 cm2 Ao root diam (test code = 4064789023) 3.10 cm Aortic root (test code = 6529382257) 3.1 cm Ao root annulus (test code = 0833995859) 3.1 cm LA size (test code = 5357331599) 4.2 cm LAV(MOD-sp4) (test code = 2706365844) 64.90 mL MV Peak A Evette (test code = 8007996737) 115.7 cm/s E wave decelartion time (test code = 1311491533) 0.15 s MV Peak E Evette (test code = 5753124859) 106.2 cm/s E/A ratio (test code = 3190275828) ratio LVOT stroke volume (test code = 2353863478) 48.30 cm3 LVOT peak evette (test code = 0183449028) 78.4 cm/s LVOT mn grad (test code = 0839246992) mmHg AV LVOT peak gradient (test code = 4961024412) mmHg LVOT peak VTI (test code = 1069528785) 14.7 cm LV V1 mean (test code = 0584755730) 51.40 cm/s Ao peak evette (test code = 3682922152) 154.7 cm/s AV area peak evette (test code = 7902957338) 1.7 cm2 Ao max PG (test code = 5954026437) 9.60 mm[Hg] AV peak gradient (test code = 4439411071) mmHg AV regurgitation pressure 1/2 time (test code = 8396418955) 257.3 ms AI dec slope (test code = 5943887123) 498.10 cm/s2 AI max evette (test code = 2214906691) 437.60 cm/s AI max PG (test code = 8724701918) 77.80 mm[Hg] Tapse (test code = 5009566815) 2.19 cm LA Volume Index (BP) (test code = 8862377716) 32.0 mL/m2 LA volume (BP) (test code = 2676220663) 62.1 mL LAV(MOD-sp2) (test code = 6298487162) 52.70 mL A4C EF (test code = 5174213786) 44.80 % EF(sp4-el) (test code = 7893370408) 45.20 % SV(MOD-sp4) (test code = 9802425971) 71.20 mL SV(sp4-el) (test code = 5256499467) 73.90 mL LV Diastolic Volume (BP) (test code = 4994268775) 146.3 mL A2C EF (test code = 4363592749) 52.00 % EF(MOD-bp) (test code = 2461129373) 46.70 % EF(sp2-el) (test code = 5437102888) 52.40 % LV Systolic Volume (BP) (test code = 8075042339) 77.9 mL SV(MOD-bp) (test code = 8020696305) 68.40 mL SV(MOD-sp2) (test code = 7825082811) 69.20 mL EF (test code = 4719250392) Left Ventricular Stroke Volume by 2-D Biplane-MOD (test code = 4636345) 68.4 mL Radiology Study observation (narrative) (test code = 45009-6) LYNDSAY (test code = LYNDSAY) ?Left?Ventricle: Left [...] agent used and saline contrast was performed. [facility] CenterKEPPRA (LEVETIRACETAM)2022-04-14 16:48:36* Test Item Value Reference Range Interpretation Comme [facility] KEPPRA (test code = 4326284218) 12-46 L LYNDSAY (test code = LYNDSAY) Therapeutic range: 12-46 ?g/mL ? ?Toxic: Not well established.Test developed and characteristics determined by [facility] Laboratory Services. Lab Interpretation (test code = 32874-2) Abnormal [facility] Metabolic Panel (Na, K, Cl, CO2, Glucose, BUN, Creatinine, Ca)2022-04-14 10:50:11* Test Item Value Reference Range Interpretation Comme nts NA (test code = 6756513595) 136 mmol/L 135-145 K (test code = 6134455005) 3.8 mmol/L 3.5-5 CL (test code = 9392331301) 105 mmol/L 98-108 CO2 TOTAL (test code = 1234084663) 25 mmol/L 23-31 AGAP (test code = 8999519309) 2-16 BUN (test code = 8124274476) 9 mg/dL 7-23 GLUCOSE (test code = 2720673251) 101 mg/dL 70-110 CREATININE (test code = 9276022685) 0.66 mg/dL 0.5-1.04 CALCIUM (test code = 0855112769) 8.1 mg/dL 8.6-10.6 L eGFR (test code = 0984058642) mL/min/1.73m2 LYNDSAY (test code = LYNDSAY) Association [...] imaging tests). Lab Interpretation (test code = 30859-5) Abnormal [facility], [id number] 10:50:11* Test Item Value Reference Range Interpretation Comme nts MAGNESIUM (test code = 7876442940) 1.9 mg/dL 1.7-2.4 Lab Interpretation (test cod e = 71247-2) Normal [facility] CenterThyroid Stimulating Kydvywx6147-12-52 22:21:44 * Test Item Value Reference Range Interpretation Comme nts TSH (test code = 3469323442) See_Comment Biotin has been reported to cause a negative bias, interpret results relative to patient's use of biotin. [Automated message] The system which generated this result transmitted reference range: 0.45 - 4.70 mIU/L. The reference range was not used to interpret this result as normal/abnormal. Lab Interpretation (test code = 55785-3) Normal [facility] CenterGLYCOSYLATED HEMOGLOBIN (A1C)2022-04-13 21:53:43* Test Item Value Reference Range Interpretation Comme nts HGB A1C (test code = 4548-4) 5.8 % 4-5.7 H LYNDSAY (test code = LYNDSAY) Reference RangesNormal: <5.7%Prediabetes: 5.7 - 6.4%Diabetes: > 6.5% Lab Interpretation (test code = 82934-6) Abnormal [facility] CenterFASTING LIPID PANEL (46317)(TOTAL CHOLESTEROL, TRIGLYCERIDES, HDL)2022-04-13 21:34:53* Test Item Value Reference Range Interpretation Comme nts CHOL (test code = 1695941010) 201 mg/dL 120-200 H HDL (test code = 7603203753) 56 mg/dL See_Comment [Automated [employer]] The system which generated this result transmitted reference range: >=50. The reference range was not used to interpret this result as normal/abnormal. HDLC RATIO (test code = 3133740029) See_Comment [Automated [employer]] The system which generated this result transmitted reference range: <=4.5. The reference range was not used to interpret this result as normal/abnormal. TRIG (test code = 4367920258) 355 mg/dL 30-170 H LDL CHOL (test code = 25058-3) 74 mg/dL See_Comment [Automated [employer]] The system which generated this result transmitted reference range: <=160. The reference range was not used to interpret this result as normal/abnormal. VLDL (test code = 1030409379) 71 mg/dL 5-60 H Lab Interpretation (test code = 39976-2) Abnormal [facility] CenterTroponin I - Code Qtikho9339-08-57 18:46:27* Test Item Value Reference Range Interpretation Comments TROPONIN I (test code = 2794203202) 0.013 ng/mL See_Comment [Automated message] The system [...] of biotin. Lab Interpretation (test code = 01768-7) Normal [facility] CenterBasi Metabolic Panel (NA, K, CL, CO2, Glucose, BUN, Creatinine, CA) - Code Bmtwcs8067-73-38 18:35:07* Test Item Value Reference Range Interpretation Comme nts NA (test code = 0776706676) 136 mmol/L 135-145 K (test code = 6004894703) 4.3 mmol/L 3.5-5 CL (test code = 9911700579) 105 mmol/L 98-108 CO2 TOTAL (test code = 6465629692) 27 mmol/L 23-31 AGAP (test code = 5405760943) 2-16 BUN (test code = 2784397898) 8 mg/dL 7-23 GLUCOSE (test code = 2122703838) 130 mg/dL 70-110 H CREATININE (test code = 6850201775) 0.75 mg/dL 0.5-1.04 CALCIUM (test code = 2639192565) 8.5 mg/dL 8.6-10.6 L eGFR (test code = 5257173269) mL/min/1.73m2 LYNDSAY (test code = LYNDSAY) Association [...] imaging tests). Lab Interpretation (test code = 17864-3) Abnormal [facility] CenteraPTT - Code Gffdcz7341-92-31 18:32:46* Test Item Value Reference Range Interpretation Comme [facility] APTT Patient (test code = 3173-2) See_Comment [Automated message] The system which generated this result transmitted reference range: 23 - 38 Seconds. The reference range was not used to interpret this result as normal/abnormal. LYNDSAY (test code = LYNDSAY) The [facility] patient population mean normal value for aPTT is 30 seconds. Lab Interpretation (test code = 16101-0) Normal [facility] CenterProthrombin Time / INR - Code Idpthm3702-98-81 18:30:45* Test Item Value Reference Range Interpretation Comme [facility] PROTIME PATIENT (test code = 5964-2) See_Comment [Automated [employer]] The system which generated this result transmitted reference range: 12.0 - 14.7 Seconds. The reference range was not used to interpret this result as normal/abnormal. INR (test code = 6301-6) Normal INR <1.1; Warfarin Therapeutic range 2.0 to 3.0 or 2.5 to 3.5, depending upon the indications. Lab Interpretation (test code = 85985-4) Normal [facility] without Diff - Code Rsexpa4998-84-18 18:23:07* Test Item Value Reference Range Interpretation [...] result as normal/abnormal. MPV (test code = 30788-2) 8.1 fL 9.5-12.9 L RDW-CV (test code = 788-0) 16.1 % 12-15.5 H RDW-SD (test code = 20262-2) 49.2 fL 39-49.9 NRBC x10^3 (test code = 1489734241) See_Comment [Automated messa ge] The system which generated this result transmitted reference range: 10*3/?L. The reference range was not used to interpret this result as normal/abnormal. NRBC/100 WBC (test code = 8372415962) See_Comment [Automated messa [employer]] The system which generated this result transmitted reference range: 0.0 - 10.0 /100 WBCs. The reference range was not used to interpret this result as normal/abnormal. IPF % (test code = 2221893868) Lab Interpretation (test code = 46582-8) Abnormal [facility] CenterTROPONIN [id number] 21:06:40* Test Item Value Reference Range Interpretation Comments TROPONIN I (test code = 0697951505) 0.005 ng/mL See_Comment [Automated message] The system [...] of biotin. Lab Interpretation (test code = 77511-3) Normal [facility] CenterCOMP. METABOLIC PANEL (97852)2021-11-23 20:55:42* Test Item Value Reference Range Interpretation Comme nts NA (test code = 5242429245) 137 mmol/L 135-145 K (test code = 9325663474) 4.3 mmol/L 3.5-5.0 CL (test code = 8894654481) 104 mmol/L 98-108 CO2 TOTAL (test code = 8669421661) 22 mmol/L 23-31 L AGAP (test code = 2384184010) 2-16 BUN (test code = 0443290234) 15 mg/dL 7-23 GLUCOSE (test code = 4931222644) 114 mg/dL 70-110 H CREATININE (test code = 1379299629) 0.68 mg/dL 0.50-1.04 TOTAL BILI (test code = 2183502831) 0.5 mg/dL 0.1-1.1 CALCIUM (test code = 7145478214) 9.1 mg/dL 8.6-10.6 T PROTEIN (test code = 8622915180) 7.3 g/dL 6.3-8.2 ALBUMIN (test code = 9999146283) 4.4 g/dL 3.5-5.0 ALK PHOS (test code = 3019882859) 243 U/L 34-122 H ALTv (test code = 1742-6) 24 U/L 5-35 AST(SGOT) (test code = 8321790197) 30 U/L 13-40 eGFR (test code = 5571603845) mL/min/1.73m2 LYNDSAY (test code = LYNDSAY) Association [...] imaging tests). Lab Interpretation (test code = 72442-0) Abnormal [facility] CenterLIPASE20[facility] 20:55:22* Test Item Value Reference Range Interpretation Comme nts LIPASE (test code = 3658540555) 96 U/L 0-220 Lab Interpretation (test cod e = 81520-3) Normal [facility] CenterPOCT [id number] 20:46:00* Test Item Value Reference Range Interpretation Comme nts POCT PREG (test code = 1605) negative On board controls acceptable with C Line (test code = 3574) present POCT PREG LOT # (test code = 3575) [id number] POCT PREG TEST DATE ( test code = 3576) 04/18/2023 Lab Interpretation (test cod e = 49142-7) Normal [facility] CenterCB WITH [id number] 20:40:38* Test Item Value Reference Range Interpretation [...] 31.8 g/dL 31.6-35.1 RDW-SD (test code = 93019-6) 53.7 fL 39.0-49.9 H RDW-CV (test code = 788-0) 17.2 % 12.0-15.5 H PLT (test code = 777-3) See_Comment H [Automated messa ge] The system which generated this result transmitted reference range: 166 - 358 10*3/?L. The reference range was not used to interpret this result as normal/abnormal. MPV (test code = 48527-7) 8.5 fL 9.5-12.9 L NRBC/100 WBC (test code = [id number]) See_Comment [Automated me ssage] The system which generated this result transmitted reference range: 0.0 - 10.0 /100 WBCs. The reference range was not used to interpret this result as normal/abnormal. NRBC x10^3 (test code = [id number]) <0.01 See_Comment [Automated messa ge] The system which generated this result transmitted reference range: 10*3/?L. The reference range was not used to interpret this result as normal/abnormal. GRAN MAT (NEUT) % (test code = 770-8) 53.7 % IMM GRAN % (test code = [id number]) 0.90 % LYMPH % (test code = 736-9) 32.6 % MONO % (test code = 5905-5) 10.1 % EOS % (test code = 713-8) 1.5 % BASO % (test code = 706-2) 1.2 % GRAN MAT x10^3(ANC) (test code = 0125102343) 4.98 10*3/uL 1.88-7.09 IMM GRAN x10^3 (test code = [id number]) 0.08 10*3/uL 0.00-0.06 H LYMPH x10^3 (test code = 731-0) 3.02 10*3/uL 1.32-3.29 MONO x10^3 (test code = 742-7) 0.94 10*3/uL 0.33-0.92 H EOS x10^3 (test code = 711-2) 0.14 10*3/uL 0.03-0.39 BASO x10^3 (test code = 704-7) 0.11 10*3/uL 0.01-0.07 H Lab Interpretation (test code = 44502-5) Abnormal [facility] GLUCOSE (AUTOMATED)2021-11-23 20:17:33* Test Item Value Reference Range Interpretation Comme nts POCT GLU (test code = 3139998171) 111 mg/dL 70-110 H Notified Provide r Lab Interpretation (test code = 31920-2) [facility] [id number] 00:00:00 * Test Item Value Reference Range Interpretation Comme nts SOURCE: (test code = 8001) Endocervical SLIDES: (test code = 8011) 1 LMP: (test code = 8021) 06/03/2021 SPECIMEN ADEQUACY: (test code = 52559) (NOTE) INTERPRETATION: (test code = 77725) ASCUS/EPITH. ABNORMALITY; SEE BELOW CARGO SUPERVISOR: (test code = 8101) CHANA Thacker(ASCP)[facility] PATHOLOGIST INTERPRETATION BY: (test code = 8122) Nahid Russell M.D. LOCATION: (test code = 04522) (NOTE) CPT: (test code = 8140) (NOTE) PAP TEST, THINPREP, [id number] 00:00:00* Test Item Value Reference Range Interpretation Comme nts SOURCE: (test code = 8001) Endocervical SLIDES: (test code = 8011) 1 LMP: (test code = 8021) 06/03/2021 SPECIMEN ADEQUACY: (test code = 45333) (NOTE) INTERPRETATION: (test code = 85385) ASCUS/EPITH. ABNORMALITY; SEE BELOW CARGO SUPERVISOR: (test code = 8101) CHANA Thacker(ASCP)[facility] PATHOLOGIST INTERPRETATION BY: (test code = 8122) Nahid Russell M.D. LOCATION: (test code = 12107) (NOTE) CPT: (test code = 8140) (NOTE) PAP TEST, THINPREP, [id number] 00:00:00* Test Item Value Reference Range Interpretation Comme nts SOURCE: (test code = 8001) Endocervical SLIDES: (test code = 8011) 1 LMP: (test code = 8021) 06/03/2021 SPECIMEN ADEQUACY: (test code = 93378) (NOTE) INTERPRETATION: (test code = 30697) ASCUS/EPITH. ABNORMALITY; SEE BELOW CARGO SUPERVISOR: (test code = 8101) CHANA Thacker(ASCP)[facility] PATHOLOGIST INTERPRETATION BY: (test code = 8122) Nahid Russell M.D. LOCATION: (test code = 01220) (NOTE) CPT: (test code = 8140) (NOTE) PAP TEST, THINPREP, [id number] 00:00:00* Test Item Value Reference Range Interpretation Comme nts SOURCE: (test code = 8001) Endocervical SLIDES: (test code = 8011) 1 LMP: (test code = 8021) 06/03/2021 SPECIMEN ADEQUACY: (test code = 60894) (NOTE) INTERPRETATION: (test code = 96610) ASCUS/EPITH. ABNORMALITY; SEE BELOW CARGO SUPERVISOR: (test code = 8101) CHANA Thacker(ASCP)[facility] PATHOLOGIST INTERPRETATION BY: (test code = 8122) Nahid Russell M.D. LOCATION: (test code = 19280) (NOTE) CPT: (test code = 8140) (NOTE) HPV HIGH RISK WITH GENOTYPE, [id number] 00:00:00* Test Item Value Reference Range Interpretation Comme nts HPV HIGH RISK INTERP (test c ode = 76375) POSITIVE HPV 16 (test code = 39132) POSITIVE HPV 18 (test code = 96720) NEGATIVE HPV, HR, OTHER GENOTYPES (te st code = 94415) POSITIVE HPV HIGH RISK WITH GENOTYPE, [id number] 00:00:00* Test Item Value Reference Range Interpretation Comme nts HPV HIGH RISK INTERP (test c ode = 63612) POSITIVE HPV 16 (test code = 90838) POSITIVE HPV 18 (test code = 31029) NEGATIVE HPV, HR, OTHER GENOTYPES (te st code = 28344) POSITIVE HPV HIGH RISK WITH GENOTYPE, [id number] 00:00:00* Test Item Value Reference Range Interpretation Comme nts HPV HIGH RISK INTERP (test c ode = 26167) POSITIVE HPV 16 (test code = 26172) POSITIVE HPV 18 (test code = 66121) NEGATIVE HPV, HR, OTHER GENOTYPES (te st code = 61647) POSITIVE HPV HIGH RISK WITH GENOTYPE, [id number] 00:00:00* Test Item Value Reference Range Interpretation Comme nts HPV HIGH RISK INTERP (test c ode = 64441) POSITIVE HPV 16 (test code = 37195) POSITIVE HPV 18 (test code = 02066) NEGATIVE HPV, HR, OTHER GENOTYPES (te st code = 82646) POSITIVE BLSGFCHNYR8140-08-82 03:22:48* Test Item Value Reference Range Interpretation Comme nts APPEARANCE (test code = 9382519591) Hazy Clear A COLOR (test code = 4367467184) Yellow Yellow PH (test code = 5247479714) 4.8-8.0 SP GRAVITY (test code = 3596453161) 1.003-1.030 GLU U QUAL (test code = 7619997410) Normal Normal BLOOD (test code = 1521867080) Negative Negative Interference fro m ascorbic acid may cause false negative results. KETONES (test code = 5671602834) 5 mg/dL Negative A PROTEIN (test code = 2887-8) Negative Negative UROBILIN (test code = 9642876281) 4.0 mg/dL Normal A BILIRUBIN (test code = 0546650173) Negative Negative NITRITE (test code = 2853245572) Negative Negative LEUK GRUPO (test code = 7719964239) Negative Negative RBC/HPF (test code = 2396922182) See_Comment [Automated Need Fixeda ge] The system which generated this result transmitted reference range: 0 - 3 HPF. The reference range was not used to interpret this result as normal/abnormal. WBC/HPF (test code = 0253269134) <1 See_Comment [Automated Need Fixeda ge] The system which generated this result transmitted reference range: 0 - 5 HPF. The reference range was not used to interpret this result as normal/abnormal. BACTERIA (test code = 9637268697) Few Negative A SQ EPITH (test code = 0892184307) HPF Lab Interpretation (test code = 26420-8) [facility]* Test Item Value Reference Range Interpretation Comme nts APPEARANCE (test code = 7175094666) Hazy Clear A COLOR (test code = 8841885317) Yellow Yellow PH (test code = 6405271257) 4.8-8.0 SP GRAVITY (test code = 4915877561) 1.003-1.030 GLU U QUAL (test code = 5006533209) Normal Normal BLOOD (test code = 2089970630) Negative Negative KETONES (test code = 8297490530) 5 mg/dL Negative A PROTEIN (test code = 2887-8) Negative Negative UROBILIN (test code = 2769848528) 4.0 mg/dL Normal A BILIRUBIN (test code = 8027212746) Negative Negative NITRITE (test code = 2052987088) Negative Negative LEUK GRUPO (test code = 9240589727) Negative Negative RBC/HPF (test code = 9213404454) See_Comment [Automated Need Fixeda ge] The system which generated this result transmitted reference range: 0 - 3 HPF. The reference range was not used to interpret this result as normal/abnormal. WBC/HPF (test code = 2510598815) <1 See_Comment [Automated Need Fixeda ge] The system which generated this result transmitted reference range: 0 - 5 HPF. The reference range was not used to interpret this result as normal/abnormal. BACTERIA (test code = 3794195756) Few Negative A SQ EPITH (test code = 9648310478) HPF Lab Interpretation (test code = 38442-3) Abnormal [facility] C1954-30-10 02:45:00* Test Item Value Reference Range Interpretation Comments TROPONIN I (test code = 6175681762) 0.002 ng/mL See_Comment [Automated message] The system [...] of biotin. Lab Interpretation (test code = 95451-3) Normal [facility] [id number] 02:45:00* Test Item Value Reference Range Interpretation Comme nts TROPONIN I (test code = 5634582894) 0.002 ng/mL See_Comment [Automated Need Fixeda [employer]] The system which generated this result transmitted reference range: <=0.034. The reference range was not used to interpret this result as normal/abnormal. LYNDSAY (test code = LYNDSAY) Lab Interpretation (test code = 19107-8) Normal [facility] YPB-WRA5189-65-29 02:41:57* Test Item Value Reference Range Interpretation Comme nts NT-proBNP (test code = 1163739244) 169 pg/mL See_Comment H [Automated message] The system which generated this result transmitted reference range: <=125. The reference range was not used to interpret this result as normal/abnormal. LYNDSAY (test code = LYNDSAY) Biotin has been reported to cause a negative bias, interpret results relative to patient's use of biotin. Lab Interpretation (test code = 60978-8) [facility]normal [facility] AVL-YMO8922-66-29 02:41:57* Test Item Value Reference Range Interpretation Comme [facility] NT-proBNP (test code = 9225452362) 169 pg/mL See_Comment H [Automated Need Fixeda ge] The system which generated this result transmitted reference range: <=125. The reference range was not used to interpret this result as normal/abnormal. LYNDSAY (test code = LYNDSAY) Lab Interpretation (test code = 79870-8) Abnormal [facility]. METABOLIC PANEL (95604)2021-03-17 02:09:13* Test Item Value Reference Range Interpretation Comme nts NA (test code = 7125488204) 137 mmol/L 135-145 K (test code = 9482324528) 4.2 mmol/L 3.5-5.0 CL (test code = 9280913003) 102 mmol/L 98-108 CO2 TOTAL (test code = 8462005304) 25 mmol/L 23-31 AGAP (test code = 3255238028) 2-16 BUN (test code = 4205721622) 18 mg/dL 7-23 GLUCOSE (test code = 4964833327) 144 mg/dL 70-110 H CREATININE (test code = 1597645142) 0.77 mg/dL 0.50-1.04 TOTAL BILI (test code = 8278494872) 0.4 mg/dL 0.1-1.1 CALCIUM (test code = 7465108625) 8.9 mg/dL 8.6-10.6 T PROTEIN (test code = 0793129572) 6.8 g/dL 6.3-8.2 ALBUMIN (test code = 5478150959) 3.9 g/dL 3.5-5.0 ALK PHOS (test code = 6808347774) 84 U/L 34-122 ALTv (test code = 1742-6) 13 U/L 5-35 AST(SGOT) (test code = 0278393701) 17 U/L 13-40 eGFR (test code = 8154356513) mL/min/1.73m2 LYNDSAY (test code = LYNDSAY) Association [...] imaging tests). Lab Interpretation (test code = 97023-2) Abnormal [facility]. METABOLIC PANEL (93939)2021-03-17 02:09:13* Test Item Value Reference Range Interpretation Comme nts NA (test code = 8536178608) 137 mmol/L 135-145 K (test code = 3513804209) 4.2 mmol/L 3.5-5.0 CL (test code = 0652703662) 102 mmol/L 98-108 CO2 TOTAL (test code = 7781085140) 25 mmol/L 23-31 AGAP (test code = 6252126273) 2-16 BUN (test code = 8760128641) 18 mg/dL 7-23 GLUCOSE (test code = 0226531384) 144 mg/dL 70-110 H CREATININE (test code = 3228550066) 0.77 mg/dL 0.50-1.04 TOTAL BILI (test code = 7794623383) 0.4 mg/dL 0.1-1.1 CALCIUM (test code = 2638034481) 8.9 mg/dL 8.6-10.6 T PROTEIN (test code = 1457466838) 6.8 g/dL 6.3-8.2 ALBUMIN (test code = 6759729459) 3.9 g/dL 3.5-5.0 ALK PHOS (test code = 7096858203) 84 U/L 34-122 ALTv (test code = 1742-6) 13 U/L 5-35 AST(SGOT) (test code = 0404865739) 17 U/L 13-40 eGFR (test code = 1312630936) mL/min/1.73m2 LYNDSAY (test code = LYNDSAY) Lab Interpretation (test cod e = 27696-3) Abnormal [facility] WITH XKSV0333-23-01 01:56:33* Test Item Value Reference Range Interpretation [...] g/dL 31.6-35.1 L RDW-SD (test code = 81602-7) 55.5 fL 39.0-49.9 H RDW-CV (test code = 788-0) 18.9 % 12.0-15.5 H PLT (test code = 777-3) See_Comment H [Automated messa ge] The system which generated this result transmitted reference range: 166 - 358 10*3/?L. The reference range was not used to interpret this result as normal/abnormal. MPV (test code = 51302-6) 8.2 fL 9.5-12.9 L NRBC/100 WBC (test code = 9911315536) See_Comment [Automated [employer] ssage] The system which generated this result transmitted reference range: 0.0 - 10.0 /100 WBCs. The reference range was not used to interpret this result as normal/abnormal. NRBC x10^3 (test code = 8012827362) <0.01 See_Comment [Automated messa ge] The system which generated this result transmitted reference range: 10*3/?L. The reference range was not used to interpret this result as normal/abnormal. GRAN MAT (NEUT) % (test code = 770-8) 61.7 % IMM GRAN % (test code = 1223665278) 0.80 % LYMPH % (test code = 736-9) 28.5 % MONO % (test code = 5905-5) 6.3 % EOS % (test code = 713-8) 1.8 % BASO % (test code = 706-2) 0.9 % GRAN MAT x10^3(ANC) (test code = 2547852347) 7.31 10*3/uL 1.88-7.09 H IMM GRAN x10^3 (test code = 5860357317) 0.09 10*3/uL 0.00-0.06 H LYMPH x10^3 (test code = 731-0) 3.38 10*3/uL 1.32-3.29 H MONO x10^3 (test code = 742-7) 0.75 10*3/uL 0.33-0.92 EOS x10^3 (test code = 711-2) 0.21 10*3/uL 0.03-0.39 BASO x10^3 (test code = 704-7) 0.11 10*3/uL 0.01-0.07 H Lab Interpretation (test code = 01043-4) Abnormal [facility] WITH [id number] 01:56:33* Test Item Value Reference Range Interpretation [...] g/dL 31.6-35.1 L RDW-SD (test code = 98857-6) 55.5 fL 39.0-49.9 H RDW-CV (test code = 788-0) 18.9 % 12.0-15.5 H PLT (test code = 777-3) See_Comment H [Automated messa ge] The system which generated this result transmitted reference range: 166 - 358 10*3/?L. The reference range was not used to interpret this result as normal/abnormal. MPV (test code = 24685-8) 8.2 fL 9.5-12.9 L NRBC/100 WBC (test code = 9026533068) See_Comment [Automated me ssage] The system which generated this result transmitted reference range: 0.0 - 10.0 /100 WBCs. The reference range was not used to interpret this result as normal/abnormal. NRBC x10^3 (test code = 8571768211) <0.01 See_Comment [Automated messa ge] The system which generated this result transmitted reference range: 10*3/?L. The reference range was not used to interpret this result as normal/abnormal. GRAN MAT (NEUT) % (test code = 770-8) 61.7 % IMM GRAN % (test code = 4354044227) 0.80 % LYMPH % (test code = 736-9) 28.5 % MONO % (test code = 5905-5) 6.3 % EOS % (test code = 713-8) 1.8 % BASO % (test code = 706-2) 0.9 % GRAN MAT x10^3(ANC) (test code = 3739298987) 7.31 10*3/uL 1.88-7.09 H IMM GRAN x10^3 (test code = 8770955744) 0.09 10*3/uL 0.00-0.06 H LYMPH x10^3 (test code = 731-0) 3.38 10*3/uL 1.32-3.29 H MONO x10^3 (test code = 742-7) 0.75 10*3/uL 0.33-0.92 EOS x10^3 (test code = 711-2) 0.21 10*3/uL 0.03-0.39 BASO x10^3 (test code = 704-7) 0.11 10*3/uL 0.01-0.07 H Lab Interpretation (test code = 85248-6) [facility]ID [facility]2021-03-17 01:38:12* Test Item Value Reference Range Interpretation Comme nts SARS-CoV-2 Rapid ID NOW (test code = 44802-8) Not Detected Not Detected LYNDSAY (test code = LYNDSAY) ID NOW COVID-19 As say is an isothermal nucleic acid amplification test intended for the qualitative detection of nucleic acid from SARS-CoV-2 viral RNA in nasopharyngeal (EMBOSSING UNIT OPERATOR) specimens. It is used under Emergency [...] clinically indicated. Lab Interpretation (test code = 14623-7) Normal [facility]-19 (ID NOW RAPID TESTING)2021-03-17 01:38:12* Test Item Value Reference Range Interpretation Comme nts SARS-CoV-2 Rapid ID NOW (raisa t code = 37599-9) Not Detected Not Detected LYNDSAY (test code = LYNDSAY) Lab Interpretation (test cod e = 86495-3) Normal [facility]-19 (ID NOW RAPID TESTING)2021-02-19 17:42:45* Test Item Value Reference Range Interpretation Comme nts SARS-CoV-2 Rapid ID NOW (test code = 03943-3) Not Detected Not Detected LYNDSAY (test code = LYNDSAY) ID NOW COVID-19 As say is an isothermal nucleic acid amplification test intended for the qualitative detection of nucleic acid from SARS-CoV-2 viral RNA in nasopharyngeal (EMBOSSING UNIT OPERATOR) specimens. It is used under Emergency [...] clinically indicated. Lab Interpretation (test code = 18979-7) [facility] QNQHYLWP9677-56-82 17:24:55Thickening of the gastric antrum and duodenal [...] lungbases to the proximal femurs using 5 mmslice thickness after theadministration of IV contrast. Oral contrast was administered. Coronal ands agittal reconstruction was performed. Dose reduction technology wasutilized.. FINDINGS:The liver isnormal in size and morphology without discrete lesions. Focalfatty infiltration along the falciformligament. Cholecystectomy. Thespleen is normal. No pancreatic lesions [...] bulb. No surrounding inflammatory changes or focalfluid collecti ons. No free air. The large and small [...] is normal. No pancreatic lesions or inflammatory c hanges. Diffusethickening and nodularity of the left adrenal gland is stable measuring upto 1.5 cm.Right adrenal gland is normal.Both kidneys enhance symmetrically [...] nodularity of the left adrenal gland.RL: 8722 [facility] 17:03:40* Test Item Value Reference Range Interpretation Comme nts APPEARANCE (test code = 1976395728) Hazy Clear A COLOR (test code = 3432836895) Mabel Yellow A PH (test code = 4974210281) 4.8-8.0 SP GRAVITY (test code = 6228238390) 1.003-1.030 H GLU U QUAL (test code = 5590813395) Normal Normal BLOOD (test code = 1357261759) Negative Negative KETONES (test code = 0088567547) 5 mg/dL Negative A PROTEIN (test code = 2887-8) 30 mg/dL Negative A UROBILIN (test code = 3810586985) 4.0 mg/dL Normal A BILIRUBIN (test code = 9083682119) 4 mg/dL Negative A NITRITE (test code = 7637117376) Negative Negative LEUK GRUPO (test code = 1893975522) Negative Negative RBC/HPF (test code = 4029919110) See_Comment H [Automated messa ge] The system which generated this result transmitted reference range: 0 - 3 HPF. The reference range was not used to interpret this result as normal/abnormal. WBC/HPF (test code = 4585185807) See_Comment H [Automated messa ge] The system which generated this result transmitted reference range: 0 - 5 HPF. The reference range was not used to interpret this result as normal/abnormal. BACTERIA (test code = 7673215182) Few Negative A MUCOUS (test code = 8031805765) Moderate Negative LPF A SQ EPITH (test code = 7440657836) HPF CA OXALATE (test code = 3884456561) See_Comment H [Automated messa ge] The system which generated this result transmitted reference range: <=1 HPF. The reference range was not used to interpret this result as normal/abnormal. Ictotest (test code = 5419828273) Negative Lab Interpretation (test code = 67633-6) [facility]normal [facility] Ackgd1306-25-91 16:34:55* Test Item Value Reference Range Interpretation Comme nts NA (test code = 8207463470) 139 mmol/L 135-145 K (test code = 5020766393) 4.3 mmol/L 3.5-5.0 CL (test code = 3430015556) 105 mmol/L 98-108 CO2 TOTAL (test code = 0182424049) 26 mmol/L 23-31 AGAP (test code = 4745057035) 2-16 BUN (test code = 3548708248) 11 mg/dL 7-23 GLUCOSE (test code = 0503231178) 95 mg/dL 70-110 CREATININE (test code = 9019842787) 0.70 mg/dL 0.50-1.04 TOTAL BILI (test code = 0279458491) 0.6 mg/dL 0.1-1.1 CALCIUM (test code = 7369824742) 8.9 mg/dL 8.6-10.6 T PROTEIN (test code = 4382162437) 7.7 g/dL 6.3-8.2 ALBUMIN (test code = 7551071734) 4.1 g/dL 3.5-5.0 ALK PHOS (test code = 3048970912) 79 U/L 34-122 ALTv (test code = 1742-6) 10 U/L 5-35 AST(SGOT) (test code = 2907495067) 22 U/L 13-40 eGFR (test code = 2515158235) mL/min/1.73m2 LYNDSAY (test code = LYNDSAY) Association [...] or urine or abnormalities in imaging tests). [facility] BranchLipase, Ihxmc1201-01-97 16:34:14* Test Item Value Reference Range Interpretation Comme nts LIPASE (test code = 2170549997) 45 U/L 0-220 Lab Interpretation (test cod e = 57437-8) Normal [facility] with Wakkthkugfys5287-16-62 16:21:12* Test Item Value Reference Range Interpretation [...] g/dL 31.6-35.1 L RDW-SD (test code = 57543-4) 54.4 fL 39.0-49.9 H RDW-CV (test code = 788-0) 18.3 % 12.0-15.5 H PLT (test code = 777-3) See_Comment H [Automated messa ge] The system which generated this result transmitted reference range: 166 - 358 10*3/?L. The reference range was not used to interpret this result as normal/abnormal. MPV (test code = 15321-1) 8.5 fL 9.5-12.9 L NRBC/100 WBC (test code = 7132314342) See_Comment [Automated me ssage] The system which generated this result transmitted reference range: 0.0 - 10.0 /100 WBCs. The reference range was not used to interpret this result as normal/abnormal. NRBC x10^3 (test code = 5383449322) <0.01 See_Comment [Automated messa ge] The system which generated this result transmitted reference range: 10*3/?L. The reference range was not used to interpret this result as normal/abnormal. GRAN MAT (NEUT) % (test code = 770-8) 78.3 % IMM GRAN % (test code = 9365090757) 0.40 % LYMPH % (test code = 736-9) 15.4 % MONO % (test code = 5905-5) 4.8 % EOS % (test code = 713-8) 0.1 % BASO % (test code = 706-2) 1.0 % GRAN MAT x10^3(ANC) (test code = 7893119001) 7.15 10*3/uL 1.88-7.09 H IMM GRAN x10^3 (test code = 8071022007) 0.04 10*3/uL 0.00-0.06 LYMPH x10^3 (test code = 731-0) 1.41 10*3/uL 1.32-3.29 MONO x10^3 (test code = 742-7) 0.44 10*3/uL 0.33-0.92 EOS x10^3 (test code = 711-2) <0.03 0.03-0.39 L BASO x10^3 (test code = 704-7) 0.09 10*3/uL 0.01-0.07 H Lab Interpretation (test code = 92500-2) Abnormal [facility] Notes Date/Time Note Provider Source 2023-09-11 11:34:02 WqP5N0eWTfNSJirqJTMSAOYmqYFkuiL/d0RsA3 HycnxBGHxvg/JKnGtckin5SU2o4751-81-58Q3 1:34:02 Chief ComplaintPatient presents withFollow-up HospitalizationPaBETO HarperN 64284-3Dksxl GkigDN3734-33-10M62:34:35Nurse NoteTXT1.2.840.421450.1.13.131.2.7.2.7 99469|[id number] for patient ckiu61362-9Zflrw NoteLNNARRATIVEFormatted C-CDA narrative textNATALIAELKVIEW GENERAL [facility]TEPP[facility] [facility].SWRCKAQQAPJITKDZBT7239751103JJMX2 364-52-74O20:34:351.2.840.078450.1.72. 3.15|1.2.840.449644.1.13.131.2.7.2.727 [id number] [facility] 2023-08-12 16:08:34 JwTAhjJbaeIXd51U4nvOsoBs/EbutZj8l+T3SV fOviqlWfVJQrg0jWFiW9WFLoqi9771-91-76Y5 6:08:34 Bryan spoke to patient and patient decided to leave AMA.AMA form signed by patient and attached to paperwork.Patient in stable condition with AMA. IV line removed and patient was assisted onto wheelchair and moved to the [facility].Patient called her prior to leaving room and will be picking up patient. 22787-2Aijmujvhr department UeppON8237-94-81U52:09:43Emergency department NoteTXT1.2.840.657099.1.13.104.2.7.2.7 34205|[id number] for patient hgsm22086-5CgthQWYLLOSGFZJQremeopwa C-CDA narrative [id number] [place] RNUT[address] Ph[address] StreetMlloWkgiyvgonMbpyjkxrgNWSM8112525903NO BYSLEHJVJZDOQNNGVZCR9782-84-11D64:09:4 31.2.840.472130.1.72.3.15|1.2.840.1143 50.1.13.104.2.7.2.727879_[id number] Steph Dumont RN [facility] 2023-08-12 15:56:21 +/SxUiPfOvR217/xsWjpLXyoR1A7kBQDmZaTTd O0UrqkuaoBsIwNfmpzDhiWCMrD7892-32-86F3 5:56:21 Patient requesting to talk to provider - provider aware.Patient refused tylenol as she said medication does not improve her condition and she does not want to throw it up.Patient also refusing blood draw at this time. 06290-5Ncqwfusck department XcbbJV2221-39-96O31:57:14[facility] NoteTXT1.2.840.312838.1.13.104.2.7.2.7 86417|[id number] for patient saqc41013-3HtjvTRBBMLEQCRIYdclservd C-CDA narrative text[address] StreetWiojEhaufwxyaObspemhofWHVF6393750370JA CMPILGZZKWCXCSVXOPEW1716-65-74X07:57:1 41.2.840.264299.1.72.3.15|1.2.840.1143 50.1.13.104.2.7.2.727879_[id number] [facility] 2023-08-12 14:50:00 nh7GgWMQ9bhYmZccIoJq1TMKzRzKYw4q7Q/mPV nz6LyhX7JZCj0yH0cQ1HW5Qgfk1553-55-95J2 4:50:00 Patient's name and verified with patient.No [...] [place] [address]-3Vghjwkxhq department CkolSX9154-85-15C35:29:07[facility] NoteTXT1.2.840.629209.1.13.104.2.7.2.7 09164|[id number] for patient hybh36125-0VqvwBAIEEXIMEKIDgstshibk C-CDA narrative text[address] StreetK[id number] QTITQEYCTYSXYDBLEUNM8690-56-33H51:29:0 71.2.840.961577.1.72.3.15|1.2.840.1143 50.1.13.104.2.7.2.727879_[id number] [facility] 2023-08-12 14:17:22 ok6OFEm9sX6qO3He4MY49UJiGUpi++6gzn1wo6 dAW6YxsB+chQDnmhnFbAHjHncr5096-79-72A8 4:17:22 Patient had witnessed seizure like activity.Bryan, DO at bedside.Patient stopped seizure activity and had no postictal phase.Patient coherent, alert and oriented/answering all questions appropriately. 00232-5Qrnseoenc department VylqVX3301-59-55M95:18:15[facility] NoteTXT1.2.840.662824.1.13.104.2.7.2.7 85792|[id number] for patient cohk93293-3XvrgMWAKWNNPSEGZeochnbij C-CDA narrative textUT[address] Fisher [id number] AXBTYRYHPWRWKPPPAJAD2522-57-09P06:18:1 51.2.840.094461.1.72.3.15|1.2.840.1143 50.1.13.104.2.7.2.727879_[id number] [facility] 2023-08-12 13:45:33 ZkRIt3Mt8cPJFhvzKvq5MtX33Oc6uKx/HjgJpP W+B+uz8dCG9y9xLh/GCr0SSUQ16719-24-67Y5 3:45:33 Patient here for chest pain that started approximately 1 hour ago. Patient had seizure like activity in the vehicle while attempting to get patient out of the car, patient had no post ictal phase. Patient c/o substernal chest pain and jaw pain. 43515-0Sqtavrcnx department Triage lasgEU3426-27-22R53:46:59[facility] department Triage [id number] for patient [id number] department NoteLNNARRATIVEFormatted C-CDA narrative [id number] S Cryer RNUT37 Fisher [id number] [id number]:46:5 [id number] Jasvir Reaves RN [facility] - Health 2023-08-12 13:42:00 LhLkXcBjAJNB3+avrS/4wnvNpyaZqGSN82Ir/c +2Rw+/U9MZ29N6p0g5xyniWPsQ4415-00-87D2 3:42:00 [facility] Emergency Department NotePatient Name: Heather TurnerDate of : 1970 53 year old femaleTreatment Room: MO3/JV3Edllbkp Record Number: [id number] Care Physician: PATIENT DOES NOT HAVE A PCPPatient Escorted by: Family [5]Mode of Arrival: Personal means [1]EMS Treatment Prior to ED Arrival:MARINA MANAGER treatment: NoneTravel and Exposure Screening:SymptomsDoes patient have [...] received in last 5 years: NoChildhood immunizations: Qw-xz-beneMhpuyogat:AllergiesAllergen ReactionsGreen Tea Other - See commentsSeizuresDiclofenac HypertensionKeppra [...] Right 08/14/2015Surgeon: Luis Jones Jr., DPM; [facility]:Review of SystemsPhysical Exam:ED [...] (*) 0.01 - 0.07 10*3/uLCOMP. METABOLIC PANEL (53916) - AbnormalNA 140 135 - 145 mmol/LK [...] U/LAST(SGOT) 21 13 - 40 U/LeGFR 107.1 mL/min/1.89y6SDKZWD ACID WHOLE BLOOD - NormalLACTIC ACID 1.56 0.50 - 2.20 mmol/LURINALYSISTROPONIN IEKG:If EKG completed, see Procedure Note.Orders and Treatments:Orders Placed This EncounterProceduresCbc with DiffComp. Metabolic Panel (01261)UrinalysisLactic Acid Whole BloodTroponin IOrders Placed This EncounterMedicationslacosamide (VIMPAT) 100 mg in NaCl 0.9% (NS) 50 mL piggybackacetaminophen (TYLENOL) tablet 1,000 mgFirst Provider Eval:ED EventsDate/Time Event User Ydvlupek09/24/24 1345 Medical Screening Begins BRIAN BRYAN --08/12/23 [...] fileFollow-up:Contact information for follow-RachelaroYehuda guo MDSpecialty: -[facility] AND [address] [address]Etnnx: [phone]-Emergency DepartmentSpecialty: Emergency [address] [place] [address]Wrpuj: [phone]: If symptoms worsen as documented in the dischargeElectronically signed by:Brian Bryan DO08/12/23 1605Brian Bryan DO08/12/23 1605 [id number] Emergency department HujuMS4731-08-25D87:05:59Physician Emergency department [id number] for patient [id number] department NoteLNNARRATIVEFormatted C-CDA narrative textUT37 Fisher [id number] FLWYZSCHJFOWVTPYYZKK5968-67-02F58:05:5 [id number]|1.2.840.1143 [id number] [facility]
--- NOTE | 2023-10-06 20:27 | RAD REPORT ---
EXAM DESCRIPTION: RAD - Chest Single View - 10/06/2023 8:22 pm CLINICAL HISTORY: CHEST PAIN Chest pain. COMPARISON: Chest Single View dated 09/29/2023; Chest Single View dated 09/26/2023; Chest Single View d ated 08/31/2023; Chest Single View dated 08/13/2023 FINDINGS: Portable technique limits examination quality. The lungs are grossly clear. The heart is normal in size. No displaced fractures.Cervical spine hardw are plate. IMPRESSION: No acute intrathoracic process suspected.
[2023-10-06] MEDS ORDERED: ONDANSETRON 4 MG/2 ML VIAL ONE (21:08)
[2023-10-06] MEDS ORDERED: MORPHINE 4 MG/ML SYR ONE (21:08)
[2023-10-06 21:23] LABS: Absolute Lymphocytes (CBC) 0.6 K/uL (0.7-4.9); Absolute Monocytes 0.3 K/uL (0.1-1.3); Absolute Neutrophil 10.2 K/uL (1.8-8.0); Basophils % 0.1 % (0-1.3); Hematocrit 38.9 % (36.0-45.0); Hemoglobin 12.5 g/dL (12.0-15.0); Lymphocytes % 5.2 % (15.3-44.8); MCH 25.4 pg (27.0-35.0); MCHC 32.1 g/dL (32.0-36.0); MCV 79.1 fL (80-100); MPV 7.4 fL (7.6-11.3); Monocytes % 2.9 % (3.3-12.3); Neutrophils % 91.8 % (41.7-73.7); Nucleated Red Blood Cells % 0.2 % (0-0); Platelets 485 thou/uL (152-406); RBC Red Blood Cell Count 4.92 M/uL (3.86-4.86); Red Cell Distribution Width 18.5 % (12.1-15.2)
[2023-10-06 21:25] LABS: Anion Gap 13.7 mEq/L (5.0-15.0); Potassium 3.7 mEq/L (3.5-5.1); Troponin High Sensitivity 39.1 pg/mL (<58.9)
[2023-10-06 21:29] LABS: PT Prothrombin Time 11.3 SECONDS (9.5-12.5); Protime INR 1.03
[2023-10-06 22:15] LABS: Band Neutrophils 5 % (0-1); Differential Total Cells Count 100; Lymphocytes 0 % (15-42); Monocytes 4 % (0-10); Reactive Lymphocytes 1 %; Segmented Neutrophils 90 % (40-80)
[2023-10-06 22:16] LABS: Blood Morphology Comment NOTED (NOT SEEN); Hypochromasia 1+; Platelet Estimate ADEQ; Polychromasia 2+
[2023-10-07] MEDS ORDERED: DIAZEPAM 5 MG TABLET ONE (00:03)
[2023-10-07] MEDS ORDERED: KETOROLAC 30 MG/ML INJ ONE (00:03)
--- NOTE | 2023-10-07 00:48 | ER ---
Nurse's Notes [facility] Name: Heather Coon Age: 53 yrs Sex: Female : 1970 Arrival Date: 10/06/2023 Time: 18:33 Bed 13 Private MD: Diagnosis: Chest pain, unspecified;Acute fall, acute pelvic contusion, acute L-spine contusion Presentation: 10/05 19:10 Chief complaint: Patient states: she hasn't been feeling well today, and was attempting ap3 to transfer from her bed to her wheelchair when she fell. patient denies LOC and denies hitting her head. patient states she was also having chest pain that started at approx 0800 this morning. Coronavirus screen: At this time, the client does not indicate any symptoms associated with coronavirus-19. Ebola Screen: No symptoms or risks identified at this time. Initial Sepsis Screen: Does the patient meet any 2 criteria? HR > 90 bpm. Does the patient have a suspected source of infection? No. Patient's initial sepsis screen is negative. Risk Assessment: Do you want to hurt yourself or someone else? Patient reports no desire to harm self or others. Onset of symptoms was October 06, 2023 at 08:00. 19:10 Method Of Arrival: EMS: [facility] ap3 19:10 Acuity: ANDER 2 ap3 19:12 Care prior to arrival: Medication(s) given: ASA, 81 mg, x 4. 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: 10/06 01:00 LMP N/A - , Not tm6 Historical: - Allergies: 10/05 19:11 fluoxetine; ap3 19:11 Green Tea; ap3 19:11 Keppra; not an allergy; ap3 - PMHx: 19:11 Anxiety; Arthritis; Bipolar disorder; Cancer-Cervical; Chronic obstructive lung ap3 disease; Chronic pain; Congestive heart failure; Depression; Diverticulitis; Herniated Back Disc; Hypertension; intestinal mass; Myocardial infarction; pt reports hx of seizures; Spastic Muscles; stroke; - PSHx: 19:11 back surgery; cervical fusion; Cholecystectomy; foot; Tonsillectomy; ap3 - Immunization history:: Client reports receiving the 2nd dose of the Covid vaccine. - Social history:: Smoking status: Patient reports the use of cigarette tobacco products, smokes one pack cigarettes per day. Screenin:13 Abuse screen: Denies threats or abuse. Nutritional screening: No deficits noted. ap3 Tuberculosis screening: No symptoms or risk factors identified. 10/06 00:59 [facility] ED Fall Risk Assessment (Adult) History of falling in the last 3 months, tm6 including since admission Yes- fall prone (multiple falls) (3 pts) Confusion or Disorientation No (0 pts) Intoxicated or Sedated No (0 pts) Impaired Gait Yes (1 pt) Mobility Assist Device Used Yes (1 pt) Altered Elimination Yes (1 pt) Score/Fall Risk Level 3 or more points = High Risk Oriented to surroundings, Maintained a safe environment. Assessment: 10/05 21:16 General: Appears uncomfortable, Behavior is calm, cooperative. Pain: Complains of pain nj1 in chest Pain does not radiate. Pain began gradually, 4 hours ago. Neuro: Level of Consciousness is awake, alert, obeys commands, Oriented to person, place, time, situation, Speech is normal, Facial symmetry appears normal. Cardiovascular: Reports chest pain, Denies diaphoresis, palpitations, syncope, Capillary refill < 3 seconds Patient's skin is warm and dry. Respiratory: Breath sounds are clear bilaterally. Denies cough, shortness of breath. GI: No deficits noted. No signs and/or symptoms were reported involving the gastrointestinal system. : No deficits noted. No signs and/or symptoms were reported regarding the genitourinary system. EENT: No deficits noted. No signs and/or symptoms were reported regarding the EENT system. Musculoskeletal: Reports pain in buttocks. 10/06 00:11 Reassessment: No changes from previously documented assessment. Patient and/or family tl4 updated on plan of care and expected duration. Pain level reassessed. Patient is alert, oriented x 3, equal unlabored respirations, skin warm/dry/pink. Patient states symptoms have not improved. Dr Myles aware. 00:19 Reassessment: Patient and/or family updated on plan of care and expected duration. Pain tm6 level reassessed. Patient is alert, oriented x 3, equal unlabored respirations, skin warm/dry/pink. 00:58 Reassessment: Patient and/or family updated on plan of care and expected duration. Pain tm6 level reassessed. Patient is alert, oriented x 3, equal unlabored respirations, skin warm/dry/pink. patient stated she wanted to be discharged, did not want to wait for results of CT scan. Vital Signs: 10/05 19:10 BP 122 / 90; Pulse 113; Resp 16; Temp 97.7; Pulse Ox 99% ; Weight 81.65 kg; Height 5 ap3 ft. 3 in. ; Pain 9/10; 20:15 BP 126 / 77; Pulse 104; Resp 18; Pulse Ox 97% on R/A; nj1 21:00 BP 125 / 74; Pulse 99; Resp 18; Pulse Ox 96% on R/A; tl4 21:30 BP 122 / 73; Pulse 88; Resp 19; Pulse Ox 96% on R/A; tl4 22:00 BP 121 / 77; Pulse 100; Resp 20; Pulse Ox 97% on R/A; Pain 10/10; tl4 22:30 BP 118 / 58; Pulse 104; Resp 20; Pulse Ox 97% on R/A; tl4 23:00 BP 141 / 83; Pulse 102; Resp 20; Pulse Ox 96% ; tl4 23:30 BP 127 / 76; Pulse 110; Resp 20; Pulse Ox 97% ; Pain 10/10; tl4 10/06 00:15 BP 112 / 91; Pulse 105; Resp 20; Pulse Ox 97% on R/A; tl4 00:19 BP 116 / 80; Pulse 96; Resp 13; Pulse Ox 96% on R/A; tm6 00:58 BP 126 / 83; Pulse 101; Resp 19; Temp 96.8(TE); Pulse Ox 98% on R/A; Pain 6/10; tm6 10/05 19:10 Body Mass Index 31.89 (81.65 kg, 160.02 cm) ap3 10/05 19:10 Pain Scale: Adult ap3 22:00 Pain Scale: Adult tl4 23:30 Pain Scale: Adult tl4 00:58 Pain Scale: Adult tm6 ED Course: 10/05 18:40 Patient arrived in ED. ra3 18:44 Andrea Pizano MD is Attending Physician. ec2 19:11 Triage completed. ap3 19:13 Patient maintains SpO2 saturation greater than 95% on room air. ap3 19:13 Arm band placed on right wrist. ap3 20:19 EKG done, by ED staff, reviewed by Andrea Pizano MD. kmf 20:19 Client placed on continuous cardiac and pulse oximetry monitoring. NIBP monitoring kmf applied. gunner's mate g on. 20:19 Warm blanket given. kmf 20:20 Benoit Blancas, BETH is Primary Nurse. tl4 20:24 XRAY Chest (1 view) In Process Unspecified. EDMS 20:46 Attending Physician role handed off by Andrea Pizano MD ec2 20:46 Luis E Myles MD is Attending Physician. ec2 20:59 Basic Metabolic Panel Sent. nj1 20:59 CBC with Diff Sent. nj1 20:59 PT-INR Sent. nj1 20:59 Troponin HS Sent. nj1 21:18 No provider procedures requiring assistance completed. nj1 21:18 Inserted saline lock: 22 gauge in right hand, using aseptic technique. Blood collected. tl4 21:18 Initial lab(s) drawn, by va, sent to lab. nj1 22:36 CT Chest For PE Angio In Process Unspecified. EDMS 03 00:15 Patient has correct armband on for positive identification. Bed in low position. Call tl4 light in reach. Side rails up X2. Provided Education on: ED process. Door closed. Noise minimized. Lights dimmed. Moved to private room. Warm blanket given. Pillow given. 00:16 Report given to BETH Neff. tl4 00:19 Tawanda Shaw, RN is Primary Nurse. tm6 00:40 Pelvis XRAY In Process Unspecified. EDMS 00:43 CT Abd/Pelvis - Without Contrast In Process Unspecified. EDMS 00:59 IV discontinued, intact, bleeding controlled, No redness/swelling at site. Pressure tm6 dressing applied. Administered Medications: 10/05 21:15 Drug: morphine IVP or IV 4 mg IVP once over 4 mins Route: IVP; Infused Over: 4 mins; nj1 Site: right hand; 10/06 00:10 Follow up: Response: No adverse reaction; Pain is decreased tl4 10/05 21:57 Drug: Ondansetron IVP 4 mg IVP once; over 2 minutes Route: IVP; Infused Over: 2 mins; [facility] Site: right hand; 10/06 00:10 Follow up: Response: No adverse reaction; Nausea is decreased tl4 00:10 Drug: Ketorolac IM 60 mg IM once Route: IM; Site: left ventrogluteal; tl4 00:10 Drug: Diazepam PO 5 mg PO once Route: PO; tl4 Medication: 10/05 21:19 VIS not applicable for this client. nj1 Outcome: 10/06 00:47 Discharge ordered by . sp4 00:59 Discharged to home via wheelchair, with family, tm6 00:59 Condition: stable 00:59 Discharge instructions given to patient, family, Instructed on discharge instructions, follow up and referral plans. Demonstrated understanding of instructions, follow-up care, 01:00 Patient left the ED. tm6 Signatures: Dispatcher [employer] EDMS Freida Rodriguez RN RN ap3 Luis E Myles MD MD sp4 Komal Villafuerte RN RN nj1 Andrea Pizano MD MD ec2 Cynthia Mariscal [facility] Tawanda Shaw RN RN tm6 Benoit Blancas RN RN tl4 Suyapa Lopez ra3 Corrections: (The following items were deleted from the chart) 00:15 10/05 23:30 BP 112 / 91; Pulse 105bpm; Resp 20bpm; Pulse Ox 97% RA; tl4 tl4 10/06 00:16 10/05 21:18 Inserted saline lock: 22 gauge in right hand, using aseptic technique. nj1 tl4
--- NOTE | 2023-10-07 00:48 | EDPHYS ---
Physician Documentation [facility] Name: Heather Coon Age: 53 yrs Sex: Female : 1970 Arrival Date: 10/06/2023 Time: 18:33 Bed 13 Private MD: ED Physician Luis E Myles HPI: 10/05 19:16 This 53 yrs old Female presents to ER via EMS with complaints of Chest Pain. ec2 19:16 Patient arrives today for evaluation of chest pain. Patient reports that she been ec2 having chest pain since approximately 12 hours ago. Patient reports pain is constant. Reports no difficulty breathing. Reports a history of significant medical problems from CHF and diabetes. Denies any specific alleviating or exacerbating factors.. 23:53 CT report from 09/27/2023 - Review of old CT - COMPARISON: Chest radiograph of the same sp4 day. FINDINGS: PULMONARYARTERIES: Unremarkable. No pulmonary embolism. AORTA: No acute findings. No thoracic aortic aneurysm. LUNGS: Interlobular septal thickening. No focal consolidation. Multiple right upper lobe nodules measuring 1 cm. PLEURAL SPACE: Unremarkable. No significant effusion. No pneumothorax. HEART: Cardiomegaly. Coronary calcifications. No significant pericardial effusion. No evidence of RV dysfunction. BONES/JOINTS: No acute fracture. No dislocation. SOFT TISSUES: Unremarkable. LYMPH NODES: Unremarkable. No enlarged lymph nodes. LIVER: Hepatic steatosis. ADRENALS: Left adrenal mass measuring 2.7 cm with attenuation values of -8 Hounsfield units. IMPRESSION: 1. No pulmonary embolism. 2. Cardiomegaly. Coronary calcifications. Mild interstitial edema. 3. Multiple right upper lobe nodules measuring 1 cm. Per Fleischner Society Guidelines, consider a non-contrast Chest CT at 3 months, a PET/CT, or tissue sampling. These guidelines do not apply to immunocompromised patients and patients with cancer. Follow up in patients with significant comorbidities as clinically warranted. For lung cancer screening, adhere to Lung-RADS guidelines. Reference: Radiology. 2017; 284(1):228-43. 4. Left adrenal mass measuring 2.7 cm with attenuation values of -8 Hounsfield units. No follow-up imaging is recommended. . 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 LMP N/A - , Not tm6 Historical: - Allergies: 10/05 19:11 fluoxetine; ap3 19:11 Green Tea; ap3 19:11 Keppra; not an allergy; ap3 - PMHx: 19:11 Anxiety; Arthritis; Bipolar disorder; Cancer-Cervical; Chronic obstructive lung ap3 disease; Chronic pain; Congestive heart failure; Depression; Diverticulitis; Herniated Back Disc; Hypertension; intestinal mass; Myocardial infarction; pt reports hx of seizures; Spastic Muscles; stroke; - PSHx: 19:11 back surgery; cervical fusion; Cholecystectomy; foot; Tonsillectomy; ap3 - Immunization history:: Client reports receiving the 2nd dose of the Covid vaccine. - Social history:: Smoking status: Patient reports the use of cigarette tobacco products, smokes one pack cigarettes per day. ROS: 19:16 Constitutional: as per hpi ec2 Exam: 19:16 Constitutional: GEN: NAD Head: atraumatic Eyes: EOMI Ears: External ears are ec2 normal. CV: Tachycardia LUNGS: no respiratory distress ABD: non-distended, soft, nontender, no guarding, not rigid. Obese SKIN: no evidence of rashes MSK: no evidence of trauma NEURO: moves all extremities equally 22:48 ECG was reviewed by the Attending Physician. EKG at 1914, sinus tachycardia at the rate sp4 of 105 Vital Signs: 19:10 BP 122 / 90; Pulse 113; Resp 16; Temp 97.7; Pulse Ox 99% ; Weight 81.65 kg; Height 5 ap3 ft. 3 in. ; Pain 9/10; 20:15 BP 126 / 77; Pulse 104; Resp 18; Pulse Ox 97% on R/A; nj1 21:00 BP 125 / 74; Pulse 99; Resp 18; Pulse Ox 96% on R/A; tl4 21:30 BP 122 / 73; Pulse 88; Resp 19; Pulse Ox 96% on R/A; tl4 22:00 BP 121 / 77; Pulse 100; Resp 20; Pulse Ox 97% on R/A; Pain 10/10; tl4 22:30 BP 118 / 58; Pulse 104; Resp 20; Pulse Ox 97% on R/A; tl4 23:00 BP 141 / 83; Pulse 102; Resp 20; Pulse Ox 96% ; tl4 23:30 BP 127 / 76; Pulse 110; Resp 20; Pulse Ox 97% ; Pain 10/10; tl4 03/20 00:15 BP 112 / 91; Pulse 105; Resp 20; Pulse Ox 97% on R/A; tl4 00:19 BP 116 / 80; Pulse 96; Resp 13; Pulse Ox 96% on R/A; tm6 00:58 BP 126 / 83; Pulse 101; Resp 19; Temp 96.8(TE); Pulse Ox 98% on R/A; Pain 6/10; tm6 10/05 19:10 Body Mass Index 31.89 (81.65 kg, 160.02 cm) ap3 10/05 19:10 Pain Scale: Adult ap3 22:00 Pain Scale: Adult tl4 23:30 Pain Scale: Adult tl4 00:58 Pain Scale: Adult tm6 MDM: 10/05 19:16 Data reviewed: vital signs. ED course: Patient arrives today for evaluation of chest ec2 pain. Examination remarkable for tachycardic individual is otherwise in no acute distress. Will obtain lab work, CT scan of the chest to evaluate for PE. Considered PE, ACS, electrolyte disturbances.. 19:37 Patient medically screened. ec2 20:20 ED course: EKG independently reviewed and interpreted by me, shows sinus rhythm, rate ec2 of 105, no acute ST segment ovation's, nonconcerning intervals.. 20:46 Transition of care: After a detail discussion of the patient's case, care is ec2 transferred to Luis E Myles MD. ED course: Patient signed out to oncoming physician with pending lab work and CT scan.. 22:47 ED course: EXAM DESCRIPTION: RAD - Chest Single View - 10/06/2023 8:22 pm CLINICAL sp4 HISTORY: CHEST PAIN Chest pain. COMPARISON: Chest Single View dated 09/29/2023; Chest Single View dated 09/26/2023; Chest Single View dated 08/31/2023; Chest Single View dated 08/13/2023 FINDINGS: Portable technique limits examination quality. The lungs are grossly clear. The heart is normal in size. No displaced fractures.Cervical spine hardware plate. IMPRESSION: No acute intrathoracic process suspected. . 23:52 HEART Score: History: Slightly Suspicious (0), ECG: Normal (0), Age: > 45 and < 65 sp4 years (1), Risk Factors: 1 or 2 risk factors (1), Troponin: < or = 1 x Normal Limit (0), Total Score = 2. ED course: EXAM: CTAngiography Chest With Intravenous Contrast CLINICAL HISTORY: CHEST PAIN TECHNIQUE: Axial computed tomographic angiography images of the chest with intravenous contrast. Sagittal and coronal reformatted images were created and reviewed. This CT exam was performed using one or more of the following dose reduction techniques: automated exposure control, adjustment of the mA and/or kV according to patient size, and/or use of iterative reconstruction technique. MIP reconstructed images were created and reviewed. COMPARISON: CTA Chest dated 09/27/2023, CTA Chest dated 06/21/2023 FINDINGS: Pulmonary arteries: Unremarkable. No pulmonary arterial filling defects. Aorta: Mild atherosclerotic disease. No thoracic aortic aneurysm. Lungs: Left upper lobe calcified granuloma. There are a few small right upper lobe nodules similar to the most recent prior, the largest measuring 5 mm (series 401 image 90). These appear to be small residual foci at sites of previous cavitary nodules seen on the June 2023 examination. Scattered bilateral subsegmental atelectasis/pleural parenchymal scar. Pleural space: Unremarkable. No significant effusion. No pneumothorax. Heart: Coronary artery calcification. No cardiomegaly. No significant pericardial effusion. No evidence of RV dysfunction. Bones/joints: Multilevel spondylosis. No acute fracture. Multilevel spondylosis. Partially visualized anterior fusion hardware at the lower cervical spine. No dislocation. Soft tissues: Unremarkable. Lymph nodes: Unremarkable. No enlarged lymph nodes. Adrenals: 2.4 cm left adrenal lesion measuring -18 Hounsfield units most compatible with a benign adenoma again demonstrated. IMPRESSION: 1. No pulmonary embolic disease. 2. Other findings as above. . 23:59 Differential diagnosis: acute pericarditis, anxiety, coronary artery disease chest wall sp4 pain, esophagitis, gastritis. ED course: Reevaluation patient states that her pain is actually in the pelvis and lower back. Patient states that she fell out of her wheelchair onto the lower back. . 10/06 00:24 ED course: Patient send stable for CT pelvis. . sp4 00:48 ED course: Patient went to get CT abdomen pelvis for evaluation of acute pelvic sp4 contusion. Then patient decided not to wait for her results and decided to be sent home. We do not suspect any significant injuries based on preliminary image review. Patient is stable for discharge home at this time. 01:07 ED course: EXAM: XR Pelvis, 1 or 2 Views CLINICAL HISTORY: The patient is 53 years old sp4 and is Female; fall , pelvic pain TECHNIQUE: Frontal view of the pelvis. COMPARISON: No relevant prior studies available. FINDINGS: BONES/JOINTS: The femoral heads are located. The SI joints and pubic symphysis are intact without evidence of diastases. No acute fracture. No dislocation. SOFT TISSUES: Unremarkable. OTHER FINDINGS: Contrast is present within the bladder. IMPRESSION: No acute findings in the pelvis. . 01:11 ED course: COMPARISON: CTAbdomen Pelvis dated 09/23/2023 FINDINGS: Lung bases: sp4 Unremarkable. No mass. No consolidation. Heart: Coronary artery calcification. ABDOMEN: Liver: Unremarkable. Gallbladder and bile ducts: Prior cholecystectomy. No ductal dilation. Pancreas: Unremarkable. No ductal dilation. Spleen: Unremarkable. No splenomegaly. Adrenals: Stable 2.6 cm low-density left adrenal nodule measuring -21 Hounsfield units compatible with a benign adenoma. No follow-up imaging is necessary. Kidneys and ureters: Excreted contrast is present within both renal collecting systems. No hydronephrosis. Stomach and bowel: Moderate stool. No bowel obstruction. No appreciable mucosal thickening. PELVIS: Appendix: Normal caliber appendix. No findings to suggest acute appendicitis. Bladder: Excreted contrast is present within the urinary bladder. No stones. Reproductive: Unremarkable as visualized. ABDOMEN and PELVIS: Intraperitoneal space: Unremarkable. No free air. No significant fluid collection. Bones/joints: Multilevel spondylosis. Remote posterior decompression at L3-L4. No acute fracture. No dislocation. Soft tissues: Unremarkable. Vasculature: Moderate atherosclerotic disease. No abdominal aortic aneurysm. Lymph nodes: Unremarkable. No enlarged lymph nodes. IMPRESSION: 1. No acute fracture. 2. Other findings as above. Electronically signed by: Yamilka Mcmillan MD 10/07/2023 01:08 AM C. 10/05 19:16 Order name: Basic Metabolic Panel; Complete Time: 22:41 ec2 10/05 19:16 Order name: CBC with Diff; Complete Time: 22:41 ec2 10/05 19:16 Order name: PT-INR; Complete Time: 22:41 ec2 10/05 19:16 Order name: Troponin HS; Complete Time: 22:41 ec2 10/05 21:54 Order name: Manual Differential; Complete Time: 22:41 EDMS 10/05 19:16 Order name: XRAY Chest (1 view); Complete Time: 22:41 ec2 10/05 19:16 Order name: CT Chest For PE Angio ec2 10/05 23:58 Order name: Pelvis XRAY sp4 10/06 00:00 Order name: CT Abd/Pelvis - Without Contrast sp4 10/05 19:16 Order name: EKG; Complete Time: 19:16 ec2 10/05 19:16 Order name: Cardiac monitoring; Complete Time: 20:59 ec2 10/05 19:16 Order name: EKG - Nurse/Tech; Complete Time: 20:20 ec2 10/05 19:16 Order name: IV Saline Lock; Complete Time: 20:59 ec2 10/05 19:16 Order name: Labs collected and sent; Complete Time: 20:59 ec2 10/05 19:16 Order name: O2 Per Protocol; Complete Time: 20:20 ec2 10/05 19:16 Order name: O2 Sat Monitoring; Complete Time: 20:20 ec2 EC/19 22:48 Rate is 105 beats/min. Rhythm is regular, Sinus tachycardia. QRS [place] is Normal. CO sp4 interval is normal. QRS interval is normal. QT interval is normal. No Q waves. T waves are Normal. No ST changes noted. Clinical impression: No evidence of ischemia. Interpreted by me. Reviewed by me. Administered Medications: 21:15 Drug: morphine IVP or IV 4 mg IVP once over 4 mins Route: IVP; Infused Over: 4 mins; nj1 Site: right hand; 10/06 00:10 Follow up: Response: No adverse reaction; Pain is decreased tl4 10/05 21:57 Drug: Ondansetron IVP 4 mg IVP once; over 2 minutes Route: IVP; Infused Over: 2 mins; nj1 Site: right hand; 10/06 00:10 Follow up: Response: No adverse reaction; Nausea is decreased tl4 00:10 Drug: Ketorolac IM 60 mg IM once Route: IM; Site: left ventrogluteal; tl4 00:10 Drug: Diazepam PO 5 mg PO once Route: PO; tl4 Disposition Summary: 10/07/23 00:47 Discharge Ordered Notes: Location: Home sp4 Problem: new sp4 Symptoms: have improved sp4 Condition: Stable sp4 Diagnosis - Chest pain, unspecified sp4 - Acute fall, acute pelvic contusion, acute L-spine contusion sp4 Followup: sp4 - With: Private Physician - When: 7 - 10 days - Reason: Recheck today's complaints Discharge Instructions: - Discharge Summary Sheet sp4 - Nonspecific Chest Pain, Adult, [id number] sp4 Forms: - Patient Portal Instructions sp4 Signatures: Dispatcher [employer] Freida Valentino RN RN ap3 Luis E Myles MD MD sp4 Komal Villafuerte RN RN nj1 Andrea Pizano MD MD ec2 Benoit Blancas RN RN tl4
[2023-10-07 02:54] VITALS: BP 126/83; TEMP 96.8; O2SAT 98
--- NOTE | 2023-10-07 13:25 | RAD REPORT ---
EXAM DESCRIPTION: CT - Chest For Pe Angio - 10/07/2023 6:47 am CLINICAL HISTORY: CHEST PAIN TECHNIQUE: Axial computed tomographic angiography images of the chest with intravenous contrast. S agittal and coronal reformatted images were created and reviewed. This CT exam was performed using one or more of the following dose reduction techniques: automated exposure control, adjustment of t he mA and/or kV according to patient size, and/or use of iterative reconstruction technique. MIP reconstructed images were created and reviewed. COMPARISON: CTA Chest dated 09/27/2023, CTA Chest dated 06/21/2023 FINDINGS: Pulmonary arteries: Unremarkable. No pulmonary arterial filling defects. Aorta: Mild atherosclerotic disease. No thoracic aortic aneurysm. Lungs: Left upper lobe calcified granuloma. There are a few small right upper lobe nodules similar to the most recent prior, the largest measuring 5 mm (series 401 image 90). These appear to be small residual foci at sites of previous cavitary nodules seen on the June 2023 examination. Scattere d bilateral subsegmental atelectasis/pleural parenchymal scar. Pleural space: Unremarkable. No significant effusion. No pneumothorax. Heart: Coronary artery calcification. No cardiomegaly. No significant pericardial effusion. N o evidence of RV dysfunction. Bones/joints: Multilevel spondylosis. No acute fracture. Multilevel spondylosis. Partially visu alized anterior fusion hardware at the lower cervical spine. No dislocation. Soft tissues: Unremarkable. Lymph nodes: Unremarkable. No enlarged lymph nodes. Adrenals: 2.4 cm left adrenal lesion measuring -18 Hounsfield units most compatible with a benign a denoma again demonstrated. IMPRESSION: 1. No pulmonary embolic disease. 2. Other findings as above. Electronically signed by: Yamilka Mcmillan MD 10/06/2023 11:12 PM CDT Due to temporary technical issues with the PACS/Fluency reporting system, reports are being signed by the in house radiologist without review as a courtesy to ensure prompt reporting. The interpreting r adiologist is fully responsible for the content of the report.
--- NOTE | 2023-10-07 13:29 | RAD REPORT ---
EXAM DESCRIPTION: RAD - Pelvis - 10/07/2023 12:38 am CLINICAL HISTORY: The patient is 53 years old and is Female; fall , pelvic pain TECHNIQUE: Frontal view of the pelvis. COMPARISON: No relevant prior studies available. FINDINGS: BONES/JOINTS: The femoral heads are located. The SI joints and pubic symphysis are intac t without evidence of diastases. No acute fracture. No dislocation. SOFT TISSUES: Unremarkable. OTHER FINDINGS: Contrast is present within the bladder. IMPRESSION: No acute findings in the pelvis. Electronically signed by: Brooklynn Bassett MD 10/07/2023 12:55 AM CDT Due to temporary technical issues with the PACS/Fluency reporting system, reports are being signed by the in house radiologist without review as a courtesy to ensure prompt reporting. The interpreting r adiologist is fully responsible for the content of the report.
--- NOTE | 2023-10-07 13:31 | RAD REPORT ---
EXAM DESCRIPTION: CT - Abdomen Pelvis Wo Contrast - 10/07/2023 6:48 am CLINICAL HISTORY: Fall, pelvic pain TECHNIQUE: Axial computed tomography images of the abdomen and pelvis without intravenous contrast. Sagittal and coronal reformatted images were created and reviewed. This CT exam was performed usi ng one or more of the following dose reduction techniques: automated exposure control, adjustment o f the mA and/or kV according to patient size, and/or use of iterative reconstruction technique. COMPARISON: CT Abdomen Pelvis dated 09/23/2023 FINDINGS: Lung bases: Unremarkable. No mass. No consolidation. Heart: Coronary artery calcification. ABDOMEN: Liver: Unremarkable. Gallbladder and bile ducts: Prior cholecystectomy. No ductal dilation. Pancreas: Unremarkable. No ductal dilation. Spleen: Unremarkable. No splenomegaly. Adrenals: Stable 2.6 cm low-density left adrenal nodule measuring -21 Hounsfield units compatible w ith a benign adenoma. No follow-up imaging is necessary. Kidneys and ureters: Excreted contrast is present within both renal collecting systems. No hydronep hrosis. Stomach and bowel: Moderate stool. No bowel obstruction. No appreciable mucosal thickening. PELVIS: Appendix: Normal caliber appendix. No findings to suggest acute appendicitis. Bladder: Excreted contrast is present within the urinary bladder. No stones. Reproductive: Unremarkable as visualized. ABDOMEN and PELVIS: Intraperitoneal space: Unremarkable. No free air. No significant fluid collection. Bones/joints: Multilevel spondylosis. Remote posterior decompression at L3-L4. No acute fracture. No dislocation. Soft tissues: Unremarkable. Vasculature: Moderate atherosclerotic disease. No abdominal aortic aneurysm. Lymph nodes: Unremarkable. No enlarged lymph nodes. IMPRESSION: 1. No acute fracture. 2. Other findings as above. Electronically signed by: Yamilka Mcmillan MD 10/07/2023 01:08 AM CDT Due to temporary technical issues with the PACS/Fluency reporting system, reports are being signed by the in house radiologist without review as a courtesy to ensure prompt reporting. The interpreting r adiologist is fully responsible for the content of the report.
--- NOTE | 2023-10-08 14:30 | EKG ---
Test Date: 2023-10-06 Test Time: 19:14:04 Sleeper Cutter: BURAK MEASUREMENT RESULTS: Intervals: Rate: 105 VT: 146 QRSD: 90 QT: 366 QTc: 483 [place]: P: 67 VT: 146 QRS: 103 T: 49 INTERPRETIVE STATEMENTS: Sinus tachycardia Biatrial enlargement Abnormal ECG Compared to ECG 09/26/2023 23:00:30 Atrial abnormality now present Electronically Signed On 10-08-23 14:24:22 CDT by Saad Leavitt
== END 2023-10-07 01:00 | disposition home or self-care (01) ==
LOC: ER 18:33
DX: R07.9 Chest pain, unspecified (principal); S30.0XXA Contusion of lower back and pelvis, initial encounter; W06.XXXA Fall from bed, initial encounter; I11.0 Hypertensive heart disease with heart failure; I50.9 Heart failure, unspecified; J44.9 Chronic obstructive pulmonary disease, unspecified; G89.29 Other chronic pain; M19.90 Unspecified osteoarthritis, unspecified site; F31.9 Bipolar disorder, unspecified; F41.9 Anxiety disorder, unspecified; F17.210 Nicotine dependence, cigarettes, uncomplicated; Z88.8 Allergy status to other drugs, medicaments and biological substances; Z86.73 Personal history of transient ischemic attack (TIA), and cerebral infarction without residual deficits; Z90.49 Acquired absence of other specified parts of digestive tract
CPT/HCPCS: 36415; 71045; 71275; 72170; 74176; 80048; 84484; 85025; 85610; 93005; J2405; Q9967

== ENCOUNTER 2023-10-25 01:35 | Emergency (ER) | payer OTHER ==
[2023-10-25] MEDS ORDERED: ALBUTEROL 2.5 MG/3 ML NEB SOL ONE (01:42)
[2023-10-25] MEDS ORDERED: IPRATROPIUM BROM 0.5MG/2.5ML ONE (01:42)
--- OUTSIDE RECORDS SUMMARY | 2023-10-25 01:55 | XMS REPORT | Continuity of Care Document ---
Author Name Unknown Address [address] [facility] [place] [address] [facility] Address [address] [facility] [place] [address] Care Team Providers Care Track Inspecting Supervisor Name Role Phone Alina DANIELA Aneta Primary Care Physician [phone] PANKAJ OBREGON Attending Clinician Un available AYDEE GO Attending Clinician Unavailable CARA BURGESS Attending Clinician Unavailab ADAM Cabrera Attending Clinician Unavailable THOMAS LOZOYA Attending Clinician Nina MARIAH Quiroga Attending Clinician Unavailable GUSTAVO DELANEY Attending Clinician Unavailable MYLA MIJARES Attending Clinician Unavailable SIDDHARTH STANFORD Attending Clinician Unavailекатерина GARRETT MD Attending Clinician Unavailab SHY Kelly Attending Clinician Unavailable SARAI JULES Attending Clinician Unavaila TIFFANY Rivera Attending Clinician UnavailYONATAN Magana Attending Clinician Unamario Loyola MD, London Dixon Attending Clinician Nina lisa Obregon MD, Pankaj Bernal Attending Clinician Selin Fry DO Attending Clinician [phone] Bud ELIZONDO, Selin Attending Clinician [phone] SELIN FERRER Attending Clinician Unavailable JUANY GREEN Attending Clinician Unavailable DEMETRIUS TOBAR Attending Clinician Unavailab monroe MONET, KETAN SANDERS Attending Clinician Unavail koki Monet NP, Ketan Sanders Attending Clinician [phone] BRIAN BRYAN Attending Clinician Unavailable Singer KRAFT, Brian Attending Clinician [phone] Jenifer ELIZONDO, Cara Hamilton Attending Clinician [phone] Abbi ELIZONDO, Aydee Attending Clinician [phone], Provider Not In Attending Clinician Unav Dallas Allen Attending Clinician [phone] Jose ELIZONDO, Adam Joshi Attending Clinician [phone] Mercedez ELIZONDO, Harry Attending Clinician [phone] Rocael ELIZONDO, Antwon Mccrary Attending Clinician + [phone] Yue Bui MD Attending Clinician [phone] Connie Davey MD Attending Clinician + [phone] Jasen ELIZONDO, Mariah Attending Clinician + [phone] Valerio ELIZONDO, Thomas Hopkins Attending Clinician CONNIE DAVEY Attending Clinician UnavailAlfonso Oh Attending Clinician Unavailable Alfonso Lopez Attending Clinician [phone] RITCHIE WARREN Attending Clinician Unavailable Ritchie Warren MD Attending Clinician + [phone] Rk CAMPOS, Shy Stoner Attending Clinician +[phone] PARRISH WHEATLEY Attending Clinician Unavaila yaya Mendoza MD, Halima Hummel Attending Clinician +[phone] Lucho ELIZONDO, Jen Olivia Attending Clinician +[phone] Roxi ELIZONDO, Parrish Reyez Attending Clinici an LORENZA LOWRY Attending Clinician Unavailable Sav Rondon MD Attending Clinician [phone] Lorenza Lowry MD Attending Clinician [phone] Corey DUMONT, Maria Teresa Attending Clinician + [phone] CHANTEL BOJORQUEZ Attending Clinician CHANTEL Kelly Attending Clinician Jack Ibrahim MD, Brandyn Otoole Attending Clinician [phone] SELINA MARTINES Attending Clinician Unavailable Sapna Vargas DO Attending Clinician [phone] Tyrel ELIZONDO, Glory Katz Attending Clinician + Selina Martines MD Attending Clinician [phone] Vaccine, Chung Pierson Attending Clinician U chelsi Pak MD, Jose Attending Clinician [phone] JOSE PAK Attending Clinician Unavailable NICHELLE VIRK Attending Clinician Unavaila Nichelle Lakhani Attending Clinician [phone] Doctor Unassigned, Baroda Attending Clinician U chelsi Nava RN, Miky Attending Clinician Unavailab Fabrice Jarrett Attending Clinician + [phone] Lydia Eaton Attending Clinician [phone] Unknown, Attending Attending Clinician Unavailab le UNKNOWN, ATTENDING Attending Clinician Unavailab Anali Berg Attending Clinician [phone] Yehuda Arcos MD Attending Clinician [phone] PANKAJ OBREGON Admitting Clinician Un available SUNESARA, RAHANA K Admitting Clinician Unavailab ADAM Cabrera Admitting Clinician Unavailable MARIAH ALDRIDGE Admitting Clinician Unavailable CONNIE DAVEY Admitting Clinician UnavailAlfonso Oh Admitting Clinician Unavailable RITCHIE WARREN Admitting Clinician Unavailable JEN GELLER Admitting Clinician Unavaila LORENZA Mariscal Admitting Clinician Unavailable Lorenza Lowry MD Admitting Clinician [phone] BRANDYN IBRAHIM Admitting Clinician Unavailable Brandyn Ibrahim MD Admitting Clinician [phone] GLORY ESTEVES Admitting Clinician Unav ailable NICHELLE VIRK Admitting Clinician Unavaila ble Payers Payer Name Policy Type Policy Number Effective Date Expirati on Date Source [facility] [id number] 2023 00:00[id number]23 00:00:00 [facility] SESAR SEVILLA COPAY FOCUS 9 [id number] 2023 00:00:00 [facility] [id number] 2023 00:00:00 MEDICAID PENDING PENDING 2022 00:00:00 [...] Disease Active 09-29 00:00: 00 Cynthia gonzalez Seizure (multi HCC) Seizure (multi HCC) Disease Active 09-29 00:00: 00 Cynthia Erazoa lisa Tobacco use Tobacco use Disease Active 09-29 00:00: 00 Cynthia Erazoa lisa Type 2 diabetes mellitus with hyperglyce ortega, without long-term current use of insulin (multi HCC) Type 2 diabetes mellitus with hyperglyce ortega, without long-term current use of insulin (multi HCC) Disease Active 09-11 00:00: 00 Cynthia Erazoa lisa CHF (congestiv e heart failure) (multi HCC) CHF (congestiv e heart failure) (multi HCC) Disease Active 09-11 00:00: 00 Cynthia gonzalez Bipolar disorder (multi HCC) Bipolar disorder (multi HCC) Disease Active 09-11 00:00: 00 Cynthia Erazoa lisa Seizure disorder (multi HCC) Seizure disorder (multi HCC) Disease Active 09-11 00:00: 00 Cynthia Erazoa lisa Prediabete s Prediabete s Disease Active 09-11 00:00: 00 Cynthia Erazoa lisa Bilateral leg weakness Bilateral leg weakness Disease Active 2022-07 00:00: 00 [facility] Pneumonia Pneumonia Disease Active 2022-07 00:00: 00 [facility] Cavitary lesion of lung Cavitary lesion of lung Disease Active 2022-07 00:00: 00 [facility] Cervical myelopathy Cervical myelopathy Disease Recurre iae 2022-07 00:00: 00 [facility] Cervical disc disorder Cervical disc disorder Disease Active 2022-07 00:00: 00 [facility] Cord compressio n Cord compressio n Disease Recurre nce 03-30 00:00: 00 [facility] Cauda equina compressio n Cauda equina compressio n Disease Active 03-30 00:00: 00 [facility] Seizure Seizure Disease Recurre iae -14 00:00: 00 [facility] Cardiomyop athy Cardiomyop athy Disease Active 1- 00:00: 00 [facility] NSVT (nonsustai keisha ventricula r tachycardi a) NSVT (nonsustai keisha ventricula r tachycardi a) Disease Active 08-01 00:00: 00 [facility] Chest pain, unspecifie d type Chest pain, unspecifie d type Disease Active 07-31 00:00: 00 [facility] Elevated brain natriureti c peptide (BNP) level Elevated brain natriureti c peptide (BNP) level Disease Active 07-31 00:00: 00 [facility] Coronary artery disease involving [place] coronary artery of [place] heart without angina pectoris Coronary artery disease involving [place] coronary artery of [place] heart without angina pectoris Disease Active 07-31 00:00: 00 [facility] Snores Snores Disease Active 07-31 00:00: 00 [facility] Cigarette smoker Cigarette smoker Disease Active 07-31 00:00: 00 [facility] Primary hypertensi on Primary hypertensi on Disease Active 07-31 00:00: 00 [facility] Other hyperlipid emia Other hyperlipid emia Disease Active 07-31 00:00: 00 [facility] Coronary artery disease involving [place] coronary artery of [place] heart without angina pectoris Coronary artery disease involving [place] coronary artery of [place] heart without angina pectoris Disease Active 07-31 00:00: 00 [facility] Chronic bilateral low back pain with bilateral sciatica Chronic bilateral low back pain with bilateral sciatica Disease Active 2021-07 017 00:00: 00 [facility] 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 Disease Active 04-15 00:00: 00 [facility] Neuroforam inal stenosis of cervical spine Neuroforam inal stenosis of cervical spine Disease Active 04-15 00:00: 00 [facility] Stroke-lik e symptoms Stroke-lik e symptoms Disease Active 9-25 00:00: 00 [facility] Bipolar disorder, in partial remission, most recent episode manic Bipolar disorder, in partial remission, most recent episode manic Disease Active 09-27 00:00: 00 [facility] Neuroforam inal stenosis of lumbar spine Neuroforam inal stenosis of lumbar spine Disease Active 09-27 00:00: 00 [facility] Bilateral acute otitis media, recurrence not specified, unspecifie d otitis media type Bilateral acute otitis media, recurrence not specified, unspecifie d otitis media type Disease Active 09-27 00:00: 00 [facility] Lumbar spinal stenosis Lumbar spinal stenosis Disease Active 09-27 00:00: 00 [facility] Right-side d low back pain with sciatica, sciatica laterality unspecifie d Right-side d low back pain with sciatica, sciatica laterality unspecifie d Disease Active 09-27 00:00: 00 [facility] Generalize d anxiety disorder Generalize d anxiety disorder Disease Active 09-27 00:00: 00 [facility] Agoraphobi a Agoraphobi a Disease Active 09-27 00:00: 00 [facility] Bipolar disorder, in partial remission, most recent episode manic Bipolar disorder, in partial remission, most recent episode manic Disease Active 09-27 00:00: 00 [facility] Obsessive compulsive disorder Obsessive compulsive disorder Disease Active 09-27 00:00: 00 [facility] Breast mass, left Breast mass, left Disease Active 09-17 00:00: 00 [facility] Anxiety Anxiety Disease Active 09-17 00:00: 00 [facility] Lower back pain Lower back pain Disease Active 09-17 00:00: 00 [facility] High blood pressure High blood pressure Disease Active 09-17 00:00: 00 [facility] COPD (chronic obstructiv e pulmonary disease) COPD (chronic obstructiv e pulmonary disease) Disease Active 09-17 00:00: 00 [facility] Obesity Obesity Disease Active 09-17 00:00: 00 [facility] Allergies, Adverse Reactions, Alerts Allergy Name Allergy Type Status Severity Reaction(s) Onset Date Inactive Date Treating Clinician Comments Source FLUOXETI NE Allergy Active 03-29 00:00: 00 [facility] GREEN TEA Allergy Active High Other 03-29 00:00: 00 [facility] LEVETIRA CETAM Allergy Active High N\\T\\V 03-29 00:00: 00 [facility] Fluoxeti ne Propensi ty to adverse reaction s Active 03-29 00:00: 00 [facility] Green Tea Propensi ty to adverse reaction s Active 03-29 00:00: 00 Seizure like activity [facility] Levetira cetam Propensi ty to adverse reaction s Active Nausea And Vomiting 03-29 00:00: 00 Intensifi es seizure [facility] Green Tea Drug Allergy Active Other (See Comments) 03-29 00:00: 00 Seizure like activity [facility] Levetira cetam Drug Allergy Active Nausea And Vomiting 03-29 00:00: 00 Intensifi es seizure [facility] Levetira cetam Propensi ty to adverse reaction s Active Other 11-17 00:00: 00 Intensifi es seizure Makes seizures worse Makes seizures worse Intensifi es seizure Cynthia Seybold - Externa l LEVETIRA CETAM DRUG INGREDI Active Other-Cmnt 11-17 00:00: 00 [facility] Levetira cetam Propensi ty to adverse reaction s Active Other - See comments 11-17 00:00: 00 Makes seizures worse [facility] Green Tea Propensi ty to adverse reaction s Active - 00:00: 00 [facility] GREEN TEA Allergy Active - 00:00: 00 [facility] FLUOXETI NE Allergy Active Med Rash 08-02 00:00: 00 [facility] Fluoxeti ne Propensi ty to adverse reaction s Active Rash 08-02 00:00: 00 Cynthia Bedoyaold - Externa l Fluoxeti ne Propensi ty to adverse reaction s Active Unknown - See comments 03-25 00:00: 00 [facility] FLUOXETI NE DRUG INGREDI Active Unknown-Cmnt 03-25 00:00: 00 [facility] Diclofen ac Propensi ty to adverse reaction s Active Anxiety 11-20 00:00: 00 Cynthia Macdonaldybold - Externa l DICLOFEN AC DRUG INGREDI Active HYPERTENSION 11-20 00:00: 00 [facility] Green Tea Propensi ty to adverse reaction s Active Anxiety 08-10 00:00: 00 Seizure like activity Seizures Seizures Seizure like activity Cynthia Garcia - Externa l GREEN TEA DRUG INGREDI Active Med Other-Cmnt 08-10 00:00: 00 [facility] Green Tea Propensi ty to adverse reaction s to drug Active Other - See comments 08-10 00:00: 00 Seizures [facility] FLUOXETI NE HCL DRUG INGREDI Active Hives 03-19 00:00: 00 [facility] Fluoxeti ne Hcl Propensi ty to adverse reaction s Active Hives 03-19 00:00: 00 [facility] Family History Family Member Diagnosis Comments Start Date Stop Date Sourc e Natural mother Alcohol abuse [facility] Natural mother Cancer [facility] Natural mother Diabetes [facility] Natural mother Heart disease [facility] Natural mother Hyperlipidemia [facility] Natural mother Kidney disease [facility] Natural mother Stroke [facility] Natural mother Alcohol abuse [facility] Natural mother Stroke [facility] Paternal uncle Diabetes [facility] Social History Social Habit Start Date Stop Date Quantity Comments Source History SDOH Social Connections Get Together [facility] History SDOH Social Connections [facility] History SDOH Social Connections Membership [facility] History SDOH Social Connections Meetings [facility] Sexual orientation Alfonso Garcia - External History of tobacco use Cigarette Smoker Cynthia boyd - External History SDOH Alcohol Frequency [facility] History SDOH Alcohol Std Drinks [facility] History SDOH Alcohol Binge [facility] History SDOH Housing Homeless Last Year [facility] Tobacco use and exposure 2023-09-30 [...] (event) 2023-05-18 00:00:00 2023-05-28 07:28:00 Not sure [facility] History SDOH Housing Unable to Pay - In the last 12 months, was there a time when you were not able to pay the mortgage or rent on time? 2023-05-26 00:00:00 2023-05-26 00:00:00 Yes [facility] History SDOH Housing Places Lived 2023-03-30 00:00:00 2023-03-30 00:00:00 1 [facility] Alcohol Comment 2023-03-29 00:00:00 2023-03-29 00:00:00 2x a week [facility] History SDOH Social Connections Phone 2022-08-01 00:00:00 2022-08-01 00:00:00 5 [facility] History SDOH Social Connections Living 2022-08-01 00:00:00 2022-08-01 00:00:00 5 [facility] History SDOH Physical Activity DPW 2022-08-01 00:00:00 2022-08-01 00:00:00 0 [facility] History SDOH Physical Activity MPS 2022-08-01 00:00:00 2022-08-01 00:00:00 0 [facility] History SDOH Financial 2022-08-01 00:00:00 2022-08-01 00:00:00 3 [facility] History SDOH Food Worry 2022-08-01 00:00:00 2022-08-01 00:00:00 1 [facility] History SDOH Food Scarcity 2022-08-01 00:00:00 2022-08-01 00:00:00 1 [facility] History SDOH Transport Med 2022-08-01 00:00:00 2022-08-01 00:00:00 2 [facility] History SDOH Transport Non-Med 2022-08-01 00:00:00 2022-08-01 00:00:00 2 [facility] Sex Assigned At 1970 00:00:00 1970 00:00:00 Cynthia Guillen Smoking Status Start Date Stop Date Source Smokes tobacco daily 2023-09-30 00:00:00 Cynthia Guillen Never smoked tobacco Cynthia Santoyo External Ex-smoker 2023-05-26 00:00:00 2023-05-26 00:00:00 [facility] Medications Ordered Medication Name Filled [...] 14:27: 32 09-29 00:00 :00 No 200mg [id number] 3D Take 1 tablet (200 mg total) by mouth every 8 hours as needed for pain. Cynthia gonzalez Fluticasone -Umeclidin- Vilant (Trelegy Ellipta) 100-62.5-25 MCG/ACT inhalation AEROSOL POWDER, BREATH ACTIVATED 09-29 00:00: 00 Yes [id number] 1{puff} Inhale 1 puff into the lungs daily. Cynthia gonzalez Carvedilol 12.5 MG oral Tablet 09-29 00:00: 00 Yes [id number] 12.5mg Take 1 tablet (12.5 mg total) by mouth in the morning and 1 tablet (12.5 mg total) in the evening. Take with meals. Cynthia gonzalez Duloxetine HCl [address] Particles 09-29 00:00: 00 Yes [id number] 20mg Take 1 capsule (20 mg total) by mouth daily. Cynthia gonzalez Acetaminoph en-Codeine (TYLENOL/CO DEINE #3) 300-30 MG oral Tablet 09-29 00:00: 00 Yes [id number] 1{tbl} Q.25D Take 1 tablet by mouth every 6 hours as needed for pain. Cynthia gonzalez Clonazepam 1 MG oral Tablet 09-29 00:00: 00 Yes [id number] 1mg QD Take 1 tablet (1 mg [...] mg total) by mouth daily. Cynthia gonzalez Mirtazapine 15 MG oral Tablet 09-11 00:00: 00 Yes [id number] 15mg QD Take 1 tablet (15 mg total) by mouth nightly as needed. Cynthia gonzalez Acetaminoph en-Codeine (TYLENOL/CO DEINE #3) 300-30 MG oral Tablet 09-11 00:00: 00 09-29 00:00 :00 No [id number] 1{tbl} Q.25D Take 1 tablet by mouth every 6 hours as needed for pain. Cynthia gonzalez DULoxetine (CYMBALTA) 60 MG capsule 09-09 00:00: 00 10-08 23:59 :00 Yes 60mg QD Take 1 capsule (60 mg total) by mouth daily for 30 days. [facility] varenicline (CHANTIX) 1 mg tablet 09-08 10:51: 03 Yes 1mg Q.5D Take 1 tablet (1 mg total) by mouth 2 (two) times daily Give with meals and with a full glass of water.. [facility] atorvastati n (LIPITOR) 20 MG tablet 09-08 10:51: 03 Yes 20mg QD Take 1 tablet (20 mg total) by mouth daily. [facility] Cyanocobala min (Vitamin B-12) 1000 MCG oral Tablet 09-08 00:00: 00 10-08 04:59 :00 Yes 1000ug Take 1 tablet (1,000 mcg total) by mouth daily. Cynthia gonzalez lidocaine (LIDODERM) 4 % patch 09-08 00:00: 00 10-07 23:59 :00 Yes 3{patch } Q24H Place 3 patches onto the skin daily for 30 days. [facility] metoprolol succinate (TOPROL-XL) 25 MG 24 hr tablet 09-07 16:47: 05 09-07 00:00 :00 No 25mg QD Take 1 tablet (25 mg total) by mouth daily. [facility] albuterol HFA (VENTOLIN HFA) 90 mcg/actuati on inhaler 09-07 16:47: 05 09-07 00:00 :00 No 1{puff} Inhale 1 puff by mouth via inhaler every 6 (six) hours as needed for Wheezing. [facility] fluticasone -umeclidin- vilanter (Trelegy Ellipta) 200-62.5-25 mcg DsDv 09-07 16:47: 05 09-07 00:00 :00 No QD Inhale by mouth via inhaler daily. [facility] Albuterol HFA 108 (90 Base) MCG/ACT IN AERS 09-07 00:00: 00 10-07 04:59 :00 Yes 1{puff} Q.25D Inhale 1 puff into the lungs every 6 hours as needed. Cynthia gonzalez Baclofen 5 MG oral Tablet 2- 00:00: 00 10-07 04:59 :00 Yes 5mg [...] total) by mouth daily for 30 days. [facility] polyethylen e glycol (GLYCOLAX) 17 gram packet - 00:00: 00 10-06 23:59 :00 Yes 17g Q.5D Take 17 g by mouth 2 (two) times daily for 30 days. [facility] gabapentin (NEURONTIN) 400 MG capsule - 00:00: 00 10-06 23:59 :00 Yes 400mg Q.[id number] 3D Take 1 capsule (400 mg total) by mouth 3 (three) times daily for 30 days. [facility] furosemide (LASIX) 20 MG tablet - 00:00: 00 10-06 23:59 :00 Yes 20mg QD Take 1 tablet (20 mg total) by mouth daily for 30 days. [facility] fluticasone -umeclidin- vilanter (Trelegy Ellipta) 200-62.5-25 mcg DsDv - 00:00: 00 10-06 23:59 :00 Yes 1{inhal ation} QD Inhale 1 Inhalation by mouth via inhaler daily for 30 days. [facility] metoprolol succinate (TOPROL-XL) 25 MG 24 hr tablet - 00:00: 00 10-06 23:59 :00 Yes 25mg QD Take 1 tablet (25 mg total) by mouth daily for 30 days. [facility] lacosamide (VIMPAT) 100 mg in NaCl 0.9% (NS) 50 mL piggyback 08-12 21:15: 00 08-12 21:23 :00 No 100mg 100 mg, IV Piggyback, ONCE, 1 dose, On Thu08/12/23 at 1515, Administer over 30 Minutes, 50 mL
Facu lty member approving Restricted medication : BRIAN BRYAN [facility] Dicyclomine HCl 20 MG oral Tablet 08-06 [...] total) by mouth daily for 5 days. [facility] metoprolol succinate (TOPROL-XL) 25 MG 24 hr tablet 2022-07 19:45: 32 Yes 25mg QD Take 1 tablet (25 mg total) by mouth daily. [facility] varenicline (CHANTIX) 1 mg tablet 2022-07 19:45: 32 Yes 1mg Q.5D Take 1 tablet (1 mg total) by mouth 2 (two) times daily Give with meals and with a full glass of water.. [facility] albuterol HFA (VENTOLIN HFA) 90 mcg/actuati on inhaler 2022-07 19:45: 32 Yes 1{puff} Inhale 1 puff by mouth via inhaler every 6 (six) hours as needed for Wheezing. [facility] fluticasone -umeclidin- vilanter (Trelegy Ellipta) 200-62.5-25 mcg DsDv 2022-07 19:45: 32 Yes QD Inhale by mouth via inhaler daily. [facility] atorvastati n (LIPITOR) 20 MG tablet 2022-07 19:45: 32 Yes 20mg QD Take 1 tablet (20 mg total) by mouth daily. [facility] acetaminoph en-codeine (TYLENOL #3) 300-30 mg per tablet 2022-07 18:02: 00 06-16 00:00 :00 No 1{tbl} Take 1 tablet by mouth every 4 (four) hours as needed for Pain. [facility] DULoxetine (CYMBALTA) 30 MG capsule 2022-07 00:00: 00 09-08 00:00 :00 No 30mg QD Take 1 capsule (30 mg total) by mouth daily for 90 days. [facility] metroNIDAZO LE (FLAGYL) 500 MG tablet 2022-07 00:00: 00 07-04 23:59 :00 No 500mg Take 1 tablet (500 mg total) by mouth every 8 (eight) hours for 18 days. [facility] ciprofloxac in HCl (CIPRO) 500 MG tablet 2022-07 00:00: 00 07-04 23:59 :00 No 500mg Q.5D Take 1 tablet (500 mg total) by mouth 2 (two) times daily for 18 days. [facility] cyclobenzap rine (FLEXERIL) 10 MG tablet 2022-07 00:00: 00 06-26 23:59 :00 No 10mg Q.[id number] 3D Take 1 tablet (10 mg total) by mouth 3 (three) times daily for 10 days. [facility] oxyCODONE (OXY-IR) 10 mg tablet 2022-07 00:00: 00 06-26 23:59 :00 No 10mg Take 1 tablet (10 mg total) by mouth every 8 (eight) hours as needed for up to 10 days. Max Daily Amount: 30 mg [facility] nystatin (MYCOSTATIN ) 100,000 unit/mL suspension 2022-07 00:00: 00 06-21 23:59 :00 No [id number] Q.25D Take 5 mLs (500,000 Units total) by mouth 4 (four) times daily for 5 days. [facility] dexAMETHaso ne (DECADRON) 2 MG tablet 2022-07 00:00: 00 06-08 23:59 :00 No 1mg Take 0.5 tablets (1 mg total) by mouth 2 (two) times daily with breakfast and dinner for 2 days. [facility] dexAMETHaso ne (DECADRON) 2 MG tablet 2022-07 00:00: 00 06-06 23:59 :00 No 2mg Take 1 tablet (2 mg total) by mouth 2 (two) times daily with breakfast and dinner for 1 day. [facility] metoprolol succinate (TOPROL-XL) 25 MG 24 hr tablet 2022-07 17:44: 21 Yes 25mg QD Take 1 tablet (25 mg total) by mouth daily. [facility] varenicline (CHANTIX) 1 mg tablet 2022-07 17:44: 21 Yes 1mg Q.5D Take 1 tablet (1 mg total) by mouth 2 (two) times daily Give with meals and with a full glass of water.. [facility] albuterol HFA (VENTOLIN HFA) 90 mcg/actuati on inhaler 2022-07 17:44: 21 Yes 1{puff} Inhale 1 puff by mouth via inhaler every 6 (six) hours as needed for Wheezing. [facility] fluticasone -umeclidin- vilanter (Trelegy Ellipta) 200-62.5-25 mcg DsDv 2022-07 17:44: 21 Yes QD Inhale by mouth via inhaler daily. [facility] atorvastati n (LIPITOR) 20 MG tablet 2022-07 17:44: 21 Yes 20mg QD Take 1 tablet (20 mg total) by mouth daily. [facility] acetaminoph en-codeine (TYLENOL #3) 300-30 mg per tablet 2022-07 17:44: 21 Yes 1{tbl} Take 1 tablet by mouth every 4 (four) hours as needed for Pain. [facility] Naloxone (NARCAN) 4 MG/0.1ML nasal Liquid 2022-07 00:00: 00 Yes 4mg 0.1 mL (4 mg total) as needed. Cynthia Garcia - Nadir gonzalez senna (SENOKOT) 8.6 mg tablet 2022-07 00:00: 00 06-18 23:59 :00 No 17.2mg Q.5D Take 2 tablets (17.2 mg total) by mouth 2 (two) times daily for 14 days. [facility] cyclobenzap rine (FLEXERIL) 10 MG tablet 2022-07 00:00: 00 06-16 00:00 :00 No 10mg [id number] 3D Take 1 tablet (10 mg total) by mouth 3 (three) times daily for 10 days. [facility] methocarbam oL (ROBAXIN) 500 MG tablet 2022-07 00:00: 00 06-16 00:00 :00 No 500mg Q.25D Take 1 tablet (500 mg total) by mouth 4 (four) times daily for 10 days. [facility] lactulose (CHRONULAC) 20 gram/30 mL solution 2022-07 00:00: 00 06-11 23:59 :00 No 20g [id number] 3D Take 30 mLs (20 g total) by mouth 3 (three) times daily for 7 days. [facility] ondansetron (ZOFRAN-ODT ) 4 MG disintegrat ing tablet 2022-07 00:00: 00 06-11 23:59 :00 No 4mg Take 1 tablet (4 mg total) by mouth every 6 (six) hours as needed for up to 7 days. [facility] metoprolol succinate (TOPROL-XL) 25 MG 24 hr tablet 2022-07 15:23: 22 Yes 25mg QD Take 1 tablet (25 mg total) by mouth daily. [facility] varenicline (CHANTIX) 1 mg tablet 2022-07 15:23: 22 Yes 1mg Q.5D Take 1 tablet (1 mg total) by mouth 2 (two) times daily Give with meals and with a full glass of water.. [facility] albuterol HFA (VENTOLIN HFA) 90 mcg/actuati on inhaler 2022-07 15:23: 22 Yes 1{puff} Inhale 1 puff by mouth via inhaler every 6 (six) hours as needed for Wheezing. [facility] fluticasone -umeclidin- vilanter (Trelegy Ellipta) 200-62.5-25 mcg DsDv 2022-07 15:23: 22 Yes QD Inhale by mouth via inhaler daily. [facility] atorvastati n (LIPITOR) 20 MG tablet 2022-07 15:23: 22 Yes 20mg QD Take 1 tablet (20 mg total) by mouth daily. [facility] acetaminoph en-codeine (TYLENOL #3) 300-30 mg per tablet 2022-07 15:23: 22 Yes 1{tbl} Take 1 tablet by mouth every 4 (four) hours as needed for Pain. [facility] acetaminoph en-codeine (TYLENOL #3) 300-30 mg per tablet 2022-07 09:42: 02 Yes 1{tbl} Take 1 tablet by mouth every 4 (four) hours as needed for Pain. Max Daily Amount: 6 tablets [facility] varenicline (CHANTIX) 1 mg tablet 2022-07 09:40: 04 Yes 1mg Q.5D Take 1 tablet (1 mg total) by mouth 2 (two) times daily Give with meals and with a full glass of water.. [facility] albuterol HFA (VENTOLIN HFA) 90 mcg/actuati on inhaler 2022-07 09:40: 04 Yes 1{puff} Inhale 1 puff by mouth via inhaler every 6 (six) hours as needed for Wheezing. [facility] fluticasone -umeclidin- vilanter (Trelegy Ellipta) 200-62.5-25 mcg DsDv 2022-07 09:40: 04 Yes QD Inhale by mouth via inhaler daily. [facility] atorvastati n (LIPITOR) 20 MG tablet 2022-07 09:40: 04 Yes 20mg QD Take 1 tablet (20 mg total) by mouth daily. [facility] metoprolol succinate (TOPROL-XL) 25 MG 24 hr tablet 2022-07 09:13: 28 Yes 25mg QD Take 1 tablet (25 mg total) by mouth daily. [facility] Atorvastati n Calcium 20 MG [...] Aspirin 81 MG oral Chewable Tablet 2022-07 00:00: 00 Yes 81mg 1 tablet (81 [...] oral Capsule 04-03 00:00: 00 Yes Cynthia Garcia Yarelis Erazostalin lisa furosemide (LASIX) 20 MG tablet 04-03 00:00: 00 09-07 00:00 :00 No 20mg QD Take 1 tablet (20 mg total) by mouth daily. [facility] aspirin 81 MG EC tablet 04-03 00:00: 00 07-02 23:59 :00 No 81mg QD Take 1 tablet (81 mg total) by mouth daily for 90 days. [facility] divalproex (DEPAKOTE) 500 MG EC tablet 04-03 00:00: 00 07-02 23:59 :00 No 500mg Q.5D Take 1 tablet (500 mg total) by mouth 2 (two) times daily for 90 days. [facility] lisinopriL (PRINIVIL,Z ESTRIL) 5 MG tablet 04-03 00:00: 00 05-28 00:00 :00 No 5mg QD Take 1 tablet (5 mg total) by mouth daily. [facility] clonazePAM (KlonoPIN) 0.5 MG tablet 04-03 00:00: 00 05-03 23:59 :00 No .25mg Take 0.5 tablets (0.25 mg total) by mouth 2 (two) times daily as needed for Anxiety for up to 30 days. Max Daily Amount: 0.5 mg [facility] HYDROcodone -acetaminop hen (NORCO 10-325) 10-325 mg per tablet 04-03 00:00: 00 04-13 23:59 :00 No 1{tbl} Take 1 tablet by mouth every 6 (six) hours as needed for up to 10 days. Max Daily Amount: 4 tablets [facility] methocarbam oL (ROBAXIN) 500 MG tablet 04-03 00:00: 00 04-13 23:59 :00 No 500mg Q.25D Take 1 tablet (500 mg total) by mouth 4 (four) times daily for 10 days. [facility] gabapentin (NEURONTIN) 300 MG capsule 04-02 00:00: 00 04-03 00:00 :00 No 300mg [id number] 3D Take 1 capsule (300 mg total) by mouth 3 (three) times daily for 90 days. [facility] divalproex (DEPAKOTE) 500 MG EC tablet 04-02 00:00: 00 04-03 00:00 :00 No 500mg Q.5D Take 1 tablet (500 mg total) by mouth 2 (two) times daily for 90 days. [facility] clonazePAM (KlonoPIN) 0.5 MG tablet 04-02 00:00: 00 04-03 00:00 :00 No .25mg Take 0.5 tablets (0.25 mg total) by mouth 2 (two) times daily as needed for Anxiety for up to 30 days. Max Daily Amount: 0.5 mg [facility] HYDROcodone -acetaminop hen (NORCO 10-325) 10-325 mg per tablet 04-02 00:00: 00 04-03 00:00 :00 No 1{tbl} Take 1 tablet by mouth every 6 (six) hours as needed for up to 10 days. Max Daily Amount: 4 tablets [facility] methocarbam oL (ROBAXIN) 500 MG tablet 04-02 00:00: 00 04-03 00:00 :00 No 500mg Q.25D Take 1 tablet (500 mg total) by mouth 4 (four) times daily for 10 days. [facility] Metronidazo le 500 MG oral [...] Sodium 500 MG oral Tablet Delayed Response 6 00:00: 00 Yes 250mg 250 mg. Cynthia gonzalez lacosamide (VIMPAT) 200 mg in NaCl 0.9% (NS) 50 mL piggyback 12-11 19:45: 00 12-11 19:57 :00 No 200mg 200 mg, IV Piggyback, ONCE, 1 dose, On Thu12/11/22 at 1445, Administer over 30 Minutes, 50 mL
Facu lty member approving Restricted medication : Alfonso ALVARADO [facility] ketorolac (TORADOL) injection 15 mg 12-11 18:15: 00 12-11 17:25 :00 No 15mg 15 mg, Slow IV Push, ONCE, 1 dose, On Arpita 12/11/22 at 1315, [facility] iopamidol (ISOVUE 370-500 mL) injection 80 mL 12-11 16:30: 00 12-11 16:27 :00 No [id number] 80mL 80 mL, Intravenou s, ONCE, 1 dose, On Thu12/11/22 at 1130, Routine [facility] nitroglycer in (NITROL) 2 % ointment 0.5 Inch 12-11 15:30: 00 12-11 14:31 :00 No .5[in_u s] 0.5 Inch, Transderma l (Apply To Skin), ONCE, 1 dose, On Arpita 12/11/22 at 1030, [facility] aspirin chewable tablet 324 mg 12-11 15:30: 00 12-11 14:30 :00 No 324mg 324 mg, Oral, ONCE, 1 dose, On Thu12/11/22 at 1030, Routine [facility] ondansetron (ZOFRAN (PF)) injection 4 mg 12-11 15:30: 00 12-11 14:29 :00 No 4mg 4 mg, Slow IV Push, ONCE, 1 dose, On Thu12/11/22 at 1030, [facility] LORazepam (ATIVAN) injection 1 mg 12-11 15:00: 00 12-11 14:57 :00 No 1mg 1 mg, Slow IV Push, ONCE, 1 dose, On Thu12/11/22 at 1000, STAT [facility] Lacosamide (VIMPAT) 100 mg tablet 12-11 00:00: 00 Yes [id number] 100mg Take 1 tablet by mouth in the morning and 1 tablet in the evening. [facility] acetaminoph en-codeine (TYLENOL #3) 300-30 mg [...] 1 dose, On Thu11/17/22 at 2245, Routine [facility] methocarbam oL (ROBAXIN) injection 1,000 mg 11-18 00:30: 00 11-17 23:47 :00 No 1000mg 1,000 mg, Intravenou s, ONCE, 1 dose, On Thu11/17/22 at 1930, [facility] methocarbam oL 500 mg tablet 11-18 00:00: 00 Yes [id number] 1000mg Take 2 tablets by mouth 4 (four) times daily as needed for Pain (scale 7-10). [facility] acetaminoph en-codeine 300-60 mg tablet 11-18 00:00: 00 11-26 04:59 :00 No [id number] 1{tbl} Take 1 tablet by mouth every 6 (six) hours as needed for Pain for up to 7 days. Indication s: acute pain [facility] ketorolac (TORADOL) injection 15 mg 11-18 00:00: 00 11-17 23:08 :00 No 15mg 15 mg, Slow IV Push, ONCE, 1 dose, On Thu11/17/22 at 1900, Routine [facility] morpHINE (4 mg/mL) injection 4 mg 11-17 23:45: 00 11-17 23:49 :00 No 4mg 4 mg, Slow IV Push, ONCE, 1 dose, On Thu11/17/22 at 1845, Routine [facility] ondansetron (ZOFRAN (PF)) injection 4 mg 11-17 23:15: 00 11-17 23:06 :00 No 4mg 4 mg, Slow IV Push, ONCE, 1 dose, On Thu11/17/22 at 1815, MICHAEL [facility] lisinopriL (PRINIVIL,Z ESTRIL) tablet 10 mg 08-02 15:00: 00 Yes 10mg 10 mg, Oral, DAILY, First dose on 08/02/22 at 0900, Until Discontinu ed, Routine [facility] predniSONE (DELTASONE) tablet 40 mg 08-02 15:00: 00 08-07 14:59 :00 No 40mg 40 mg, Oral, DAILY, 5 doses, First dose on 08/02/22 at 0900, Last dose on Thu08/06/22 at 0900, Routine [facility] morpHINE (2 mg/mL) injection 2 mg 08-02 03:29: 15 Yes 2mg 2 mg, Slow IV Push, Q4HPRN, Starting on Thu08/01/22 at 2129, Until Discontinu ed, Routine, Pain (scale 7-10) [facility] levETIRAcet am (KEPPRA) in NACL (ISO-OS) 1,000 mg/100 mL RTU 08-02 00:00: 00 Yes 1000mg 1,000 mg, IV Piggyback, Q12H, First dose on Thu08/01/22 at 1800, Until Discontinu ed, Administer over 15 Minutes, 100 mL [facility] MULTIVITAMI N ORAL 08-01 23:49: 34 Yes 1{tbl} Take 1 Tab by mouth daily. [facility] omega-3 fatty acids-vitam in E (FISH OIL) 1,000 mg capsule 08-01 23:49: 34 Yes 1g Take 1 g by mouth daily. [facility] loratadine (CLARITIN LIQUI-GEL) 10 mg capsule 08-01 23:49: 34 Yes Take by mouth daily. [facility] ondansetron 4 mg tablet 08-01 23:49: 34 Yes 4mg Take 4 mg by mouth every 8 (eight) hours as needed. [facility] pantoprazol e 40 mg EC tablet 08-01 23:49: 34 Yes 40mg Take 40 mg by mouth daily. [facility] omega-3 fatty acids-vitam in E (FISH OIL) 1,000 mg capsule 08-01 23:49: 34 Yes 1g Take 1 g by mouth daily. [facility] benzonatate (TESSALON PERLES) capsule 100 mg 08-01 20:00: 00 Yes 100mg 100 mg, Oral, Q8H, First dose on Thu08/01/22 at 1400, Until Discontinu ed, Routine [facility] ipratropium -albuteroL (DUONEB) 0.5 mg-3 mg(2.5 mg base)/3 mL nebulizer solution 3 mL 08-01 18:00: 00 Yes 3mL 3 mL, Inhalation , QID, First dose on Thu08/01/22 at 1200, Until Discontinu ed, Routine [facility] ipratropium -albuteroL (DUONEB) 0.5 mg-3 mg(2.5 mg base)/3 mL nebulizer solution 3 mL 08-01 17:07: 07 Yes 3mL 3 mL, Inhalation , QIDPRN, Starting on Thu08/01/22 at 1107, Until Discontinu ed, MICHAEL, Wheezing, Shortness of Breath [facility] sulfur hexafluorid e microsphr (LUMASON) injection 5 mL 08-01 17:00: 00 08-01 17:00 :00 No [id number] 5mL 5 mL, Intravenou s, ONCE, 1 dose, On Thu08/01/22 at 1100, Routine
hourly team members approving Restricted medication : KYLEE MONTEZ [facility] pantoprazol e (PROTONIX) EC tablet 40 mg 08-01 15:00: 00 Yes 40mg 40 mg, Oral, DAILY, First dose on Thu08/01/22 at 0900, Until Discontinu ed, Routine [facility] aspirin chewable tablet 81 mg 08-01 15:00: 00 Yes 81mg 81 mg, Oral, DAILY, First dose on Thu08/01/22 at 0900, Until Discontinu ed, Routine [facility] amLODIPine (NORVASC) tablet 10 mg 08-01 15:00: 00 Yes 10mg 10 mg, Oral, DAILY, First dose on Thu08/01/22 at 0900, Until Discontinu ed, Routine [facility] levETIRAcet am (KEPPRA) tablet 500 mg 08-01 14:00: 00 08-01 23:56 :35 No 500mg 500 mg, Oral, BID, First dose on Thu08/01/22 at 0800, Until Discontinu ed, Routine [facility] carvediloL (COREG) tablet 6.25 mg 08-01 14:00: 00 08-01 17:29 :13 No 6.25mg 6.25 mg, Oral, BID MEALS, First dose on Thu08/01/22 at 0800, Until Discontinu ed, Routine [facility] levETIRAcet am (KEPPRA) in NACL (ISO-OS) 1,000 mg/100 mL RTU 08-01 06:45: 00 08-01 06:32 :00 No 1000mg 1,000 mg, IV Piggyback, ONCE, 1 dose, On Thu08/01/22 at 0045, Administer over 15 Minutes, 100 mL [facility] LORazepam (ATIVAN) injection 1 mg 08-01 05:52: 54 Yes 1mg 1 mg, Slow IV Push, Q4HPRN, Starting on Thu07/31/22 at 2352, Until Discontinu ed, Routine, Seizures, Agitation, Anxiety, ETOH / Cocaine Withdrawl [facility] foLIC acid (FOLATE) tablet 1 mg 08-01 05:45: 00 Yes 1mg 1 mg, Oral, DAILY, First dose on Thu07/31/22 at 2345, Until Discontinu ed, Routine [facility] thiamine (VITAMIN B1) tablet 100 mg 08-01 05:45: 00 Yes 100mg 100 mg, Oral, DAILY, First dose on Thu07/31/22 at 2345, Until Discontinu ed, Routine [facility] LORazepam (ATIVAN) injection 0.5 mg 08-01 05:30: 00 08-01 05:29 :00 No .5mg 0.5 mg, Slow IV Push, ONCE, 1 dose, On Thu07/31/22 at 2330, MICHAEL [facility] atorvastati n (LIPITOR) tablet 40 mg 08-01 03:00: 00 Yes 40mg 40 mg, Oral, QHS, First dose on Thu07/31/22 at 2100, Until Discontinu ed, Routine [facility] diphenhydrA MINE (BENADRYL) tablet 25 mg 08-01 00:32: 02 Yes 25mg 25 mg, Oral, Q6HPRN, Starting on Thu07/31/22 at 1832, Until Discontinu ed, Routine, Itching [facility] enoxaparin (LOVENOX) injection 40 mg 07-31 23:00: 00 Yes 40mg 40 mg, Subcutaneo us, DAILY, First dose on Arpita 07/31/22 at 1700, Until Discontinu ed, Routine [facility] morpHINE (2 mg/mL) injection 2 mg 07-31 23:00: 00 07-31 22:29 :00 No 2mg 2 mg, Slow IV Push, ONCE, 1 dose, On Arpita 07/31/22 at 1700, Routine [facility] HYDROcodone -acetaminop hen (NORCO) 10-325 mg tablet 1 tablet 07-31 22:01: 36 Yes 1{tbl} 1 tablet, Oral, Q6HPRN, Starting on Thu07/31/22 at 1601, Until Discontinu ed, Routine, Pain (scale 7-10) [facility] HYDROcodone -acetaminop hen (NORCO 5) 5-325 mg tablet 1 tablet 07-31 22:01: 34 08-02 22:00 :34 No 1{tbl} 1 tablet, Oral, Q6HPRN, Starting on Thu07/31/22 at 1601, Until 08/02/22 at 1600, Routine, Pain (scale 4-6) [facility] acetaminoph en (TYLENOL) tablet 650 mg 07-31 22:01: 33 Yes 650mg 650 mg, Oral, Q6HPRN, Starting on Thu07/31/22 at 1601, Until Discontinu ed, Routine, Pain (scale 1-3) [facility] ketorolac (TORADOL) injection 15 mg 07-31 21:45: 00 07-31 20:50 :00 No 15mg 15 mg, Slow IV Push, ONCE, 1 dose, On Arpita 07/31/22 at 1545, Routine [facility] ondansetron (ZOFRAN (PF)) injection 4 mg 07-31 21:00: 00 07-31 20:47 :00 No 4mg 4 mg, Slow IV Push, ONCE, 1 dose, On Arpita 07/31/22 at 1500[facility] 40 mg 07-31 20:15: 00 Yes 40mg 40 mg, Slow IV Push, Q12H, First dose on Arpita 07/31/22 at 1415, Until Discontinu ed, Routine [facility] methylpredn isolone sod succ (SOLU-MEDRO L) injection 125 mg 07-31 19:30: 00 07-31 18:54 :00 No 125mg 125 mg, Slow IV Push, ONCE NOW, 1 dose, On Arpita 07/31/22 at 1330, [facility] ip[facility]ropium -albuteroL (DUONEB) 0.5 mg-3 mg(2.5 mg base)/3 mL nebulizer solution 3 mL 07-31 19:30: 00 07-31 18:48 :00 No 3mL 3 mL, Inhalation , ONCE, 1 dose, On Arpita 07/31/22 at 1330, [facility] EC tablet 07-31 17:15: 40 Yes 40mg Take 40 mg by mouth daily. [facility] MULTIVITAMI N ORAL 07-31 15:50: 57 Yes 1{tbl} Take 1 Tab by mouth daily. [facility] loratadine (CLARITIN LIQUI-GEL) 10 mg capsule 07-31 15:50: 57 Yes Take by mouth daily. [facility] ondansetron 4 mg tablet 07-31 15:50: 57 Yes 4mg Take 4 mg by mouth every 8 (eight) hours as needed. [facility] omega-3 fatty acids-vitam in E (FISH OIL) 1,000 mg capsule 07-31 15:21: 27 Yes 1g Take 1 g by mouth daily. [facility] TAKE ONE (1) TABLET(S) BY MOUTH THREE TIMES A DAY NEEDED. 07-28 00:00: 00 No Methylpredn isolone 4 mg tablet 2021-07 00:00: 00 05-12 04:59 :00 No [id number] 4mg Take 1 tablet through enteral tube in the morning for 1 dose. [facility] Methylpredn isolone 4 mg tablet 2021-07 00:00: 00 05-11 04:59 :00 No [id number] 4mg Take 1 tablet through enteral tube every 12 (twelve) hours for 2 doses. [facility] MULTIVITAMI N ORAL 2021-07 14:44: 48 Yes 1{tbl} Take 1 Tab by mouth daily. [facility] omega-3 fatty acids-vitam in E (FISH OIL) 1,000 mg capsule 2021-07 14:44: 48 Yes 1g Take 1 g by mouth daily. [facility] loratadine (CLARITIN LIQUI-GEL) 10 mg capsule 2021-07 14:44: 48 Yes Take by mouth daily. [facility] ondansetron (ZOFRAN) 4 mg tablet 2021-07 14:44: 48 Yes 4mg Take 4 mg by mouth every 8 (eight) hours as needed. [facility] pantoprazol e (PROTONIX) 40 mg EC tablet 2021-07 14:44: 48 Yes 40mg Take 40 mg by mouth daily. [facility] DULoxetine (CYMBALTA) capsule 30 mg 2021-07 14:00: 00 Yes 30mg 30 mg, Oral, DAILY, First dose on Thu05/08/22 at 0900, Until Discontinu ed, Routine [facility] divalproex (DEPAKOTE) EC tablet 1,000 mg 2021-07 13:00: 00 Yes 1000mg 1,000 mg, Oral, BID, First dose (after last modificati on) on Arpita 05/08/22 at 0800, Until Discontinu ed, Routine [facility] Methylpredn isolone (MEDROL) tablet 4 mg 2021-07 08:50: 10 05-09 08:59 :00 No 4mg 4 mg, Oral, Q8H TAPER, 3 doses, First dose on Thu05/08/22 at 0400, Last dose on Thu05/08/22 at 2000, Routine [facility] acetaminoph en-codeine (TYLENOL #3) 300-30 mg tablet 1 tablet 2021-07 04:07: 01 Yes 1{tbl} 1 tablet, Oral, Q4HPRN, Starting on Thu05/07/22 at 2307, Until Discontinu ed, Routine, Pain (scale 7-10) [facility] morpHINE (2 mg/mL) injection 2 mg 2021-07 03:03: 15 Yes 2mg 2 mg, Slow IV Push, Q4HPRN, Starting on Thu05/07/22 at 2203, Until Discontinu ed, Routine, Pain (scale 7-10) [facility] LORazepam (ATIVAN) tablet 1 mg 2021-07 00:02: 18 Yes 1mg 1 mg, Oral, Q6HPRN, Starting on Thu05/07/22 at 1902, Until Discontinu ed, Routine, Anxiety [facility] cyclobenzap rine 5 mg tablet 2021-07 00:00: 00 Yes [id number] 5mg Take 1 tablet by mouth in the morning and 1 tablet at noon and 1 tablet in the evening. [facility] DULoxetine (CYMBALTA) 30 mg capsule 2021-07 00:00: 00 06-08 05:59 :00 No [id number] 60mg Take 2 capsules by mouth in the morning for 30 days. [facility] divalproex (DEPAKOTE) 250 mg EC tablet 2021-07 00:00: 00 06-08 05:59 :00 No [id number] 750mg Take 3 tablets by mouth every 8 (eight) hours for 30 days. [facility] LORazepam 1 mg tablet 2021-07 00:00: 00 05-19 04:59 :00 No [id number] 1mg Take 1 tablet by mouth every 6 (six) hours as needed for Anxiety or Agitation for up to 10 days. [facility] acetaminoph en-codeine 300-30 mg tablet 2021-07 00:00: 00 05-16 04:59 :00 No [id number] 1{tbl} Take 1 tablet by mouth every 4 (four) hours as needed for Pain (scale 7-10) for up to 7 days. Indication s: acute pain [facility] Methylpredn isolone 4 mg tablet 2021-07 00:00: 00 05-10 04:59 :00 No [id number] 4mg Take 1 tablet by mouth every 8 (eight) hours for 3 doses. [facility] divalproex (DEPAKOTE) EC tablet 750 mg 2021-07 01:00: 00 05-08 09:40 :23 No 750mg 750 mg, Oral, BID, First dose on Thu05/06/22 at 2000, Until Discontinu ed, Routine [facility] levETIRAcet am (KEPPRA) tablet 1,500 mg 2021-07 13:00: 00 05-06 18:38 :22 No 1500mg 1,500 mg, Oral, BID, First dose (after last modificati on) on Thu05/06/22 at 0800, Until Discontinu ed, Routine [facility] levETIRAcet am (KEPPRA) in NACL (ISO-OS) 1,000 mg/100 mL RTU 2021-07 05:00: 00 05-06 05:46 :00 No 1000mg 1,000 mg, IV Piggyback, ONCE, 1 dose, On Thu05/06/22 at 0000, Administer over 15 Minutes, 100 mL [facility] methocarbam oL (ROBAXIN) tablet 500 mg 2021-07 02:15: 00 05-06 23:21 :42 No 500mg 500 mg, Oral, QID, First dose on Thu05/05/22 at 2115, Until Discontinu ed, Routine [facility] LORazepam (ATIVAN) tablet 2 mg 2021-07 01:30: 00 05-06 01:03 :00 No 2mg 2 mg, Oral, ONCE, 1 dose, On Thu05/05/22 at 2030, Routine [facility] levETIRAcet am (KEPPRA) tablet 1,000 mg 2021-07 01:00: 00 05-06 04:48 :06 No 1000mg 1,000 mg, Oral, BID, First dose on Thu05/05/22 at 2000, Until Discontinu ed, Routine [facility] enoxaparin (LOVENOX) injection 40 mg 2021-07 00:15: 00 Yes 40mg 40 mg, Subcutaneo us, Q24H, First dose on Thu05/05/22 at 1915, Until Discontinu ed, Routine [facility] levETIRAcet am (KEPPRA) in NACL (ISO-OS) 1,000 mg/100 mL RTU 2021-07 19:45: 00 05-05 20:05 :00 No 1000mg 1,000 mg, IV Piggyback, ONCE, 1 dose, On Thu05/05/22 at 1445, Administer over 15 Minutes, 100 mL [facility] clonazePAM (KLONOPIN) tablet 0.5 mg 2021-07 19:30: 00 Yes .5mg 0.5 mg, Oral, BID, First dose on Thu05/05/22 at 1430, Until Discontinu ed, Routine [facility] ibuprofen (IBU) tablet 600 mg 2021-07 19:30: 00 Yes 600mg 600 mg, Oral, TID MEALS, First dose on Thu05/05/22 at 1430, Until Discontinu ed, Routine [facility] gabapentin (NEURONTIN) capsule 300 mg 2021-07 19:30: 00 Yes 300mg 300 mg, Oral, TID, First dose on Thu05/05/22 at 1430, Until Discontinu ed, Routine [facility] cyclobenzap rine (FLEXERIL) tablet 5 mg 2021-07 19:30: 00 Yes 5mg 5 mg, Oral, TID, First dose on Thu05/05/22 at 1430, Until Discontinu ed, Routine [facility] acetaminoph en (TYLENOL) tablet 1,000 mg 2021-07 19:30: 00 Yes 1000mg 1,000 mg, Oral, Q8H, First dose on Thu05/05/22 at 1430, Until Discontinu ed, Routine [facility] pantoprazol e (PROTONIX) EC tablet 40 mg 2021-07 14:00: 00 Yes 40mg 40 mg, Oral, DAILY, First dose on Thu05/05/22 at 0900, Until Discontinu ed, Routine [facility] docusate (COLACE) capsule 100 mg 2021-07 14:00: 00 Yes 100mg 100 mg, Oral, DAILY, First dose on Thu05/05/22 at 0900, Until Discontinu ed, Routine [facility] HYDROcodone -acetaminop hen (NORCO) 10-325 mg tablet 1 tablet 2021-07 10:32: 02 05-05 19:18 :52 No 1{tbl} 1 tablet, Oral, Q6HPRN, Starting on Thu05/05/22 at 0532, Until Thu05/05/22 at 1418, Routine, Pain (scale 7-10) [facility] ondansetron (ZOFRAN (PF)) injection 4 mg 2021-07 06:49: 57 Yes 4mg 4 mg, Slow IV Push, Q6HPRN, Starting on Thu05/05/22 at 0149, Until Discontinu ed, Routine, Nausea and Vomiting (N/V) [facility] HYDROcodone -acetaminop hen (NORCO 5) 5-325 mg tablet 1 tablet 2021-07 06:49: 41 05-05 10:32 :14 No 1{tbl} 1 tablet, Oral, Q6HPRN, Starting on Thu05/05/22 at 0149, Until Thu05/05/22 at 0532, Routine, Pain (scale 7-10) [facility] acetaminoph en (TYLENOL) tablet 325 mg 2021-07 06:49: 39 05-05 19:18 :52 No 325mg 325 mg, Oral, Q4HPRN, Starting on Thu05/05/22 at 0149, Until Thu05/05/22 at 1418, Routine, Pain (scale 4-6) [facility] ondansetron (ZOFRAN) tablet 4 mg 2021-07 04:00: 00 05-05 03:26 :00 No 4mg 4 mg, Oral, ONCE, 1 dose, On 05/04/22 at 2300, Routine [facility] morpHINE (2 mg/mL) injection 2 mg 2021-07 04:00: 00 05-05 03:26 :00 No 2mg 2 mg, Slow IV Push, ONCE, 1 dose, On 05/04/22 at 2300, Routine [facility] aspirin 81 mg chewable tablet 04-16 00:00: 00 Yes [id number] 81mg Take 1 tablet by mouth in the morning. [facility] MULTIVITAMI N ORAL 04-15 17:39: 14 Yes 1{tbl} Take 1 Tab by mouth daily. [facility] omega-3 fatty acids-vitam in E (FISH OIL) 1,000 mg capsule 04-15 17:39: 14 Yes 1g Take 1 g by mouth daily. [facility] loratadine (CLARITIN LIQUI-GEL) 10 mg capsule 04-15 17:39: 14 Yes Take by mouth daily. [facility] ondansetron (ZOFRAN) 4 mg tablet 04-15 17:39: 14 Yes 4mg Take 4 mg by mouth every 8 (eight) hours as needed. [facility] pantoprazol e (PROTONIX) 40 mg EC tablet 04-15 17:39: 14 Yes 40mg Take 40 mg by mouth daily. [facility] lisinopril- hydrochloro thiazide 20-12.5 mg per tablet 04-15 15:58: 35 04-15 00:00 :00 No 1{tbl} Take 1 tablet by mouth daily. [facility] levetiracet am (KEPPRA ORAL) 04-15 15:58: 35 04-15 00:00 :00 No Take by mouth. [facility] acetaminoph en-codeine (TYLENOL #4) 300-60 mg tablet 1 tablet 04-15 05:39: 23 04-15 14:39 :42 No 1{tbl} 1 tablet, Oral, Q6HPRN, Starting on Thu04/15/22 at 0039, Until Thu04/15/22 at 0939, Routine, Pain (scale 4-6), Pain (scale 1-3) [facility] LORazepam (ATIVAN) tablet 2 mg 04-15 03:30: 00 04-15 10:27 :00 No 2mg 2 mg, Oral, ONCE, 1 dose, On Thu04/14/22 at 2230, Routine [facility] levETIRAcet am (KEPPRA) tablet 1,000 mg 04-15 02:45: 00 Yes 1000mg 1,000 mg, Oral, BID, First dose (after last modificati on) on Thu04/14/22 at 2145, Until Discontinu ed, Routine [facility] ketorolac (TORADOL) injection 15 mg 04-15 02:13: 00 04-15 02:22 :00 No 15mg 15 mg, Slow IV Push, ONCE, 1 dose, On Thu04/14/22 at 2115, Routine [facility] atorvastati n 40 mg tablet 04-15 00:00: 00 Yes [id number] 40mg Take 1 tablet by mouth at bedtime. [facility] levETIRAcet am 1,000 mg tablet 04-15 00:00: 00 05-08 00:00 :00 No [id number] 1000mg Take 1 tablet by mouth in the morning and 1 tablet in the evening. [facility] lidocaine 5 % (700 mg/patch) patch 04-15 00:00: 00 04-23 04:59 :00 No [id number] 1{patch } Apply 1 Patch to area(s) in the morning for 7 days. [facility] HYDROcodone -acetaminop hen 5-325 mg tablet 04-15 00:00: 00 04-21 04:59 :00 No [id number] 1{tbl} Take 1 tablet by mouth every 6 (six) hours as needed for Pain (scale 7-10) for up to 5 days. Indication s: acute pain [facility] lidocaine (LIDODERM) 5 % (700 mg/patch) patch 1 Patch 04-14 21:45: 29 Yes 1{patch } 1 Patch, Topical, Administer over 12 Hours, [id number], Starting on Thu04/14/22 at 1645, Until Discontinu ed, Routine, Localized pain [facility] aspirin chewable tablet 81 mg 04-14 21:30: 00 Yes 81mg 81 mg, Oral, DAILY, First dose on Thu04/14/22 at 1630, Until Discontinu ed, Routine [facility] acetaminoph en (TYLENOL) tablet 650 mg 04-14 21:29: 25 Yes 650mg 650 mg, Oral, Q6HPRN, Starting on Thu04/14/22 at 1629, Until Discontinu ed, Routine, Pain (scale 1-3), Temp > 38.5 C, Temp > 37.5 C [facility] HYDROcodone -acetaminop hen (NORCO) 10-325 mg tablet 1 tablet 04-14 21:29: 02 04-15 05:39 :41 No 1{tbl} 1 tablet, Oral, Q6HPRN, Starting on Thu04/14/22 at 1629, Until Thu04/15/22 at 0039, Routine, Pain (scale 7-10), Pain (scale 4-6) [facility] sulfur hexafluorid e microsphr (LUMASON) injection 5 mL 04-14 16:45: 00 04-14 16:45 :00 No [id number] 5mL 5 mL, Intravenou s, ONCE, 1 dose, On Thu04/14/22 at 1145, Routine
hourly team members approving Restricted medication : [facility]ERSON [employer] clopidogreL (PLAVIX) 75 mg tablet 75 mg 04-14 14:00: 00 Yes 75mg 75 mg, Oral, DAILY, First dose on Thu04/14/22 at 0900, Until Discontinu ed, Routine [facility] pantoprazol e (PROTONIX) EC tablet 40 mg 04-14 14:00: 00 Yes 40mg 40 mg, Oral, DAILY, First dose on Thu04/14/22 at 0900, Until Discontinu ed, Routine [facility] atorvastati n (LIPITOR) tablet 40 mg 04-14 02:00: 00 Yes 40mg 40 mg, Oral, QHS, First dose on Thu04/13/22 at 2100, Until Discontinu ed, Routine [facility] LORazepam (ATIVAN) tablet 1 mg 04-14 01:30: 00 04-14 01:45 :00 No 1mg 1 mg, Oral, ONCE, 1 dose, On Thu04/13/22 at 2030, Routine [facility] methocarbam oL (ROBAXIN) tablet 500 mg 04-14 01:00: 00 Yes 500mg 500 mg, Oral, QID, First dose on Thu04/13/22 at 2000, Until Discontinu ed, Routine [facility] heparin (porcine) injection 5,000 Units 04-14 01:00: 00 Yes 5000U 5,000 Units, Subcutaneo us, Q12H, First dose on Thu04/13/22 at 2000, Until Discontinu ed, Routine [facility] acetaminoph en (TYLENOL) tablet 650 mg 04-14 00:23: 25 04-14 21:29 :42 No 650mg 650 mg, Oral, Q6HPRN, Starting on Thu04/13/22 at 1923, Until Thu04/14/22 at 1629, Routine, Pain (scale 1-3), Pain (scale 4-6), Temp > 38.5 C, Temp > 37.5 C [facility] lidocaine (LIDODERM) 5 % (700 mg/patch) patch 1 Patch 04-14 00:22: 00 04-14 13:51 :00 No 1{patch } 1 Patch, Topical, Administer over 12 Hours, ONCE, 1 dose, On Thu04/13/22 at 1930, Routine [facility] FENTanyl PF (SUBLIMAZE (PF)) injection 50 mcg 04-13 20:30: 00 04-13 19:22 :00 No 50ug 50 mcg, Slow IV Push, ONCE, 1 dose, On Thu04/13/22 at 1530, Routine [facility] aspirin chewable tablet 650 mg 04-13 20:15: 00 04-13 20:15 :00 No 650mg 650 mg, Oral, ONCE, 1 dose, On Thu04/13/22 at 1515, Routine [facility] clopidogreL (PLAVIX) 300 mg tablet 300 mg 04-13 20:00: 00 04-13 19:15 :00 No 300mg 300 mg, Oral, ONCE, 1 dose, On Thu04/13/22 at 1500, Routine [facility] ondansetron (ZOFRAN (PF)) injection 4 mg 04-13 19:30: 00 04-13 19:22 :00 No 4mg 4 mg, Slow IV Push, ONCE, 1 dose, On Thu04/13/22 at 1430, MICHAEL [facility] iopamidol (ISOVUE 370-500 mL) injection 100 mL 04-13 18:31: 00 04-13 18:32 :00 No [id number] 100mL 100 mL, Intravenou s, ONCE, 1 dose, On Thu04/13/22 at 1345, Routine [facility] NaCl 0.9% (NS) injection 5 mL 04-13 18:14: 11 Yes 5mL 5 mL, Slow IV Push, PRN - SEE INSTRUCTIO NS, Starting on Thu04/13/22 at 1314, Until Discontinu ed, 10 mL [facility] aspirin chewable tablet 324 mg 11-24 14:00: 00 Yes 324mg 324 mg, Oral, DAILY, First dose on 11/24/21 at 0900, Until Discontinu ed, Routine [facility] metoclopram iker HCl (REGLAN) injection 10 [...] mL, IV Infusion, ONCE, 1 dose, On [facility] 11/23/21 at 1630, [facility] LORazepam (ATIVAN) injection 4 mg 11-23 21:30: 00 11-23 20:23 :00 No 4mg 4 mg, Slow IV Push, ONCE, 1 dose, On 11/23/21 at 1630, STAT [facility] levETIRAcet am (KEPPRA) in NACL (ISO-OS) 1,500 mg/100 mL RTU 11-23 21:30: 00 11-23 20:47 :00 No 1500mg 1,500 mg, IV Piggyback, ONCE, 1 dose, On 11/23/21 at 1630, Administer over 15 Minutes, 100 mL [facility] Dose Unknown 2022-0 4-08 00:00: 00 No [...] Dose Unknown 2020-1 2- 00:00: 00 No Wellbutrin XL 150 mg [...] y
Durat ion of Therapy: 7 days [facility] morpHINE injection 4 mg 03-17 01:58: 00 03-17 02:13 :00 No 4mg 4 mg, Slow IV Push, ONCE, 1 dose, 03/16/21 at 2100, STAT [facility] ondansetron (ZOFRAN (PF)) injection 4 mg 03-17 01:58: 00 03-17 02:12 :00 No 4mg 4 mg, Slow IV Push, ONCE, 1 dose, 03[facility]16/21 [facility] 2100[facility] -[facility]L (DUONEB) 0.5 mg-3 [...] ONCE, 1 dose, 03/16/21 at 2100, MICHAEL [facility] methylpredn isolone sod succ (SOLU-MEDRO L) injection 125 mg 03-17 01:57: 00 03-17 02:11 :00 No 125mg 125 mg, Slow IV Push, ONCE, 1 dose, 03/16/21 at 2100, STAT [facility] levoFLOXaci n 500 mg tablet 03-17 00:00: 00 03-24 04:59 :00 No [id number] 500mg Take 1 tablet by mouth daily for 6 days. [facility] predniSONE 10 mg tablet 03-17 00:00: 00 03-22 04:59 :00 No [id number] 30mg Take 3 tablets by mouth daily for 4 days. [facility] albuterol (VENTOLIN) inhaler 4 Puff 03-15 01:45: 00 03-15 00:44 :00 No [id number] 4{puff} 4 Puff, Inhalation , ONCE, 1 dose, Arpita 03/14/21 at 2044, Routine [facility] dexamethaso ne (DECADRON) injection 10 mg 03-15 01:45: 00 03-15 00:45 :00 No [id number] 10mg 10 mg, Intramuscu lar, ONCE, 1 dose, Arpita 03/14/21 at 2044, Routine [facility] albuterol 2.5 mg /3 mL (0.083 %) nebulizer solution 03-15 00:00: 00 Yes [id number] 2.5mg Inhale 3 mL every 4 (four) hours as needed for Wheezing or Shortness of Breath. [facility] levETIRAcet am (KEPPRA) in NACL (ISO-OS) 1,000 mg/100 mL RTU 02-19 20:15: 00 02-19 19:30 :00 No 1000mg 1,000 mg, IV Infusion, ONCE, 1 dose, 02/19/21 at 1515, Administer over 15 Minutes, 100 mL [facility] levetiracet am (KEPPRA ORAL) 02-19 19:45: 33 Yes Take by mouth. [facility] LISINOPRIL- HYDROCHLORO THIAZIDE ORAL 02-19 19:41: 15 02-19 00:00 :00 No Take by mouth. [facility] dicyclomine (BENTYL) injection 20 mg 02-19 19:15: 02-19 19:04 :00 No 20mg 20 mg, Intramuscu lar, ONCE, 1 dose, 02/19/21 at 1415, Routine [facility] proMETHazin e (PHENERGAN) 25 mg in NaCl 0.9% (NS) 50 mL piggyback 02-19 19:15: 00 02-19 19:03 :00 No 25mg 25 mg, IV Piggyback, ONCE, 1 dose, 02/19/21 at 1415, 50 mL [facility] morpHINE injection 4 mg 02-19 17:15: 00 02-19 17:05 :00 No 4mg 4 mg, Slow IV Push, ONCE, 1 dose, 02/19/21 at 1215, STAT [facility] NaCl 0.9% (NS) bolus infusion 1,000 mL 02-19 17:15: 00 02-19 19:04 :00 No 1000mL at 999 mL/hr, 1,000 mL, IV Infusion, ONCE, 1 dose, 02/19/21 at 1215, STAT [facility] ondansetron (ZOFRAN (PF)) injection 4 mg 02-19 17:00: 00 02-19 15:59 :00 No 4mg 4 mg, Slow IV Push, ONCE, 1 dose, 02/19/21 at 1200, MICHAEL [facility] iopamidol (ISOVUE 370-500 mL) injection 100 mL 02-19 16:35: 00 02-19 16:45 :00 No [id number] 100mL 100 mL, Intravenou s, ONCE, 1 dose, Tue 21 at 1145, Routine [facility] levetiracet am (KEPPRA ORAL) 02-19 14:45: 33 Yes Take by mouth. [facility] proMETHazin e 25 mg tablet 02-19 00:00: 00 Yes [id number] 25mg Take 1 tablet by mouth every 6 (six) hours as needed for Nausea and Vomiting (N/V). [facility] dicyclomine 20 mg tablet 02-19 00:00: 00 Yes [id number] 20mg Take 1 tablet by mouth 4 (four) times daily as needed for Abdominal pain. [facility] ZONISAMIDE 100 mg capsule 11-15 00:00: 00 02-19 00:00 :00 No TAKE 1 CAPSULE BY MOUTH TWICE A DAY [facility] ondansetron (ZOFRAN) 4 mg tablet 02-09 20:05: 01 Yes 4mg Take 4 mg by mouth every 8 (eight) hours as needed. [facility] pantoprazol e (PROTONIX) 40 mg EC tablet 02-09 20:05: 01 Yes 40mg Take 40 mg by mouth daily. [facility] LISINOPRIL- HYDROCHLORO THIAZIDE ORAL 02-09 20:05: 01 Yes Take by mouth. [facility] lisinopril- hydrochloro thiazide 20-12.5 mg per tablet 02-09 20:03: 30 Yes 1{tbl} Take 1 tablet by mouth daily. [facility] omega-3 fatty acids-vitam in E (FISH OIL) 1,000 mg capsule 02-09 19:59: 52 Yes 1g Take 1 g by mouth daily. [facility] MULTIVITAMI N ORAL 02-09 19:58: 14 Yes 1{tbl} Take 1 Tab by mouth daily. [facility] loratadine (CLARITIN LIQUI-GEL) 10 mg capsule 02-09 19:58: 14 Yes Take by mouth daily. [facility] ondansetron (ZOFRAN) 4 mg tablet 02-09 15:05: 01 Yes 4mg Take 4 mg by mouth every 8 (eight) hours as needed. [facility] pantoprazol e (PROTONIX) 40 mg EC tablet 02-09 15:05: 01 Yes 40mg Take 40 mg by mouth daily. [facility] lisinopril- hydrochloro thiazide 20-12.5 mg per tablet 02-09 15:03: 30 Yes 1{tbl} Take 1 tablet by mouth daily. [facility] omega-3 fatty acids-vitam in E (FISH OIL) 1,000 mg capsule 02-09 14:59: 52 Yes 1g Take 1 g by mouth daily. [facility] MULTIVITAMI N ORAL 02-09 14:58: 14 Yes 1{tbl} Take 1 Tab by mouth daily. [facility] loratadine (CLARITIN LIQUI-GEL) 10 mg capsule 02-09 14:58: 14 Yes Take by mouth daily. [facility] proMETHazin e (PHENERGAN) 25 mg tablet 11-20 00:00: 00 02-19 00:00 :00 No 25mg Take 1 tablet by mouth every 6 (six) hours as needed for Nausea and Vomiting (N/V). [facility] carvedilol (COREG) 6.25 mg tablet 09-19 00:00: 00 Yes 6.25mg Take 1 Tab by mouth 2 (two) times daily with meals. [facility] amLODIPine (NORVASC) 10 mg tablet 09-19 00:00: 00 Yes 10mg Take 1 Tab by mouth daily. [facility] lisinopril (PRINIVIL,Z ESTRIL) 40 mg tablet 09-19 00:00: 00 Yes 40mg Take 1 Tab by mouth daily. [facility] Immunizations Ordered Immunization Name Filled Immunization Name Date Status Comments Source SARS-COV-2 COVID-19 PFIZER BA-SUCROSE VACCINE (ROSE TOP) 2022-02-19 00:00:00 Completed [facility] SARS-COV-2 COVID-19 PFIZER BA-SUCROSE VACCINE (ROSE TOP) 2022-02-19 00:00:00 Completed [facility] SARS-COV-2 COVID-19 PFIZER BA-SUCROSE VACCINE (ROSE TOP) 2022-02-19 00:00:00 Completed [facility] SARS-COV-2 COVID-19 PFIZER BA-SUCROSE VACCINE (ROSE TOP) 2022-02-19 00:00:00 Completed [facility] SARS-COV-2 COVID-19 PFIZER BA-SUCROSE VACCINE (ROSE TOP) 2022-02-19 00:00:00 Completed [facility] SARS-COV-2 COVID-19 PFIZER BA-SUCROSE VACCINE (ROSE TOP) 2022-02-19 00:00:00 Completed [facility] SARS-COV-2 COVID-19 PFIZER BA-SUCROSE VACCINE (ROSE TOP) 2022-02-19 00:00:00 Completed [facility] SARS-COV-2 COVID-19 PFIZER BA-SUCROSE VACCINE (ROSE TOP) 2022-02-19 00:00:00 Completed [facility] SARS-COV-2 COVID-19 PFIZER BA-SUCROSE VACCINE (ROSE TOP) 2022-02-19 00:00:00 Completed [facility] SARS-COV-2 COVID-19 PFIZER VACCINE 2021-05-24 00:00:00 Completed [facility] SARS-COV-2 COVID-19 PFIZER VACCINE 2021-05-24 00:00:00 Completed [facility] SARS-COV-2 COVID-19 PFIZER VACCINE 2021-05-24 00:00:00 Completed [facility] SARS-COV-2 COVID-19 PFIZER VACCINE 2021-05-24 00:00:00 Completed [facility] SARS-COV-2 COVID-19 PFIZER VACCINE 2021-05-24 00:00:00 Completed [facility] SARS-COV-2 COVID-19 PFIZER VACCINE 2021-05-24 00:00:00 Completed [facility] SARS-COV-2 COVID-19 PFIZER VACCINE 2021-05-24 00:00:00 Completed [facility] SARS-COV-2 COVID-19 PFIZER VACCINE 2021-05-24 00:00:00 Completed [facility] SARS-COV-2 COVID-19 PFIZER VACCINE 2021-05-24 00:00:00 Completed [facility] SARS-COV-2 COVID-19 PFIZER VACCINE 2021-05-24 00:00:00 Completed [facility] SARS-COV-2 COVID-19 PFIZER VACCINE 2021-05-24 00:00:00 Completed [facility] SARS-COV-2 COVID-19 PFIZER VACCINE 2021-05-03 00:00:00 Completed [facility] SARS-COV-2 COVID-19 PFIZER VACCINE 2021-05-03 00:00:00 Completed [facility] SARS-COV-2 COVID-19 PFIZER VACCINE 2021-05-03 00:00:00 Completed [facility] SARS-COV-2 COVID-19 PFIZER VACCINE 2021-05-03 00:00:00 Completed [facility] SARS-COV-2 COVID-19 PFIZER VACCINE 2021-05-03 00:00:00 Completed [facility] SARS-COV-2 COVID-19 PFIZER VACCINE 2021-05-03 00:00:00 Completed [facility] SARS-COV-2 COVID-19 PFIZER VACCINE 2021-05-03 00:00:00 Completed [facility] SARS-COV-2 COVID-19 PFIZER VACCINE 2021-05-03 00:00:00 Completed [facility] SARS-COV-2 COVID-19 PFIZER VACCINE 2021-05-03 00:00:00 Completed [facility] SARS-COV-2 COVID-19 PFIZER VACCINE 2021-05-03 00:00:00 Completed [facility] SARS-COV-2 COVID-19 PFIZER VACCINE 2021-05-03 00:00:00 Completed [facility] SARS-COV-2 COVID-19 PFIZER VACCINE 2021-05-03 00:00:00 Completed [facility] SARS-COV-2 COVID-19 PFIZER VACCINE Unknown Completed [facility] SARS-COV-2 COVID-19 PFIZER VACCINE Unknown Completed [facility] SARS-COV-2 COVID-19 PFIZER BA-SUCROSE VACCINE (ROSE TOP) Unknown Completed [facility] Vital Signs Vital Name Observation Time Observation Value Comments S ource Systolic blood pressure 2023-09-11 17:27:00 122 mm[Hg] Cynthia Bedoyao ld - External Diastolic blood pressure 2023-09-11 17:27:00 74 mm[Hg] Cynthia Bedoyao ld - External Heart rate 2023-09-11 17:27:00 80 /min Kimani Garcia - External Body temperature 2023-09-11 17:27:00 36.72 Radha Cynthia Macdonaldybold - External Respiratory rate 2023-09-11 17:27:00 18 /min Cynthia Macdonaldybold - External Body height 2023-09-11 17:27:00 159.4 cm Esthela shoemaker Seybold - External Body weight 2023-09-11 17:27:00 80.74 kg Esthela shoemaker Seybold - External BMI 2023-09-11 17:27:00 31.78 kg/m2 Esthela shoemaker Seybold - External Oxygen saturation in Arterial blood by Pulse oximetry 2023-09-11 17:27:00 97 /min Cynthia Villegas ld - External Systolic blood pressure 2023-08-12 21:00:00 130 mm[Hg] [facility] Diastolic blood pressure 2023-08-12 21:00:00 85 mm[Hg] [facility] Heart rate 2023-08-12 21:00:00 106 /min [facility] Respiratory rate 2023-08-12 21:00:00 14 /min [facility] Oxygen saturation in Arterial blood by Pulse oximetry 2023-08-12 21:00:00 95 /min [facility] Body temperature 2023-08-12 20:34:54 37.22 Radha [facility] Body height 2023-08-12 19:47:[address] [facility] Body weight 2023-08-12 19:47:[address] [facility] BMI 2023-08-12 19:47:00 32.92 kg/m2 [facility] WEIGHT 2023-06-16 05:26:00 86.047 kg HEIGHT [...] Systolic blood pressure 2022-12-11 20:00:00 142 mm[Hg] [facility] Diastolic blood pressure 2022-12-11 20:00:00 90 mm[Hg] [facility] Respiratory rate 2022-12-11 20:00:00 24 /min [facility] Heart rate 2022-12-11 18:00:00 101 /min [facility] Oxygen saturation in Arterial blood by Pulse oximetry 2022-12-11 18:00:00 93 /min [facility] BMI 2022-12-11 13:55:00 35.43 kg/m2 [facility] Body temperature 2022-12-11 13:55:00 37.22 Radha [facility] Body weight 2022-12-11 13:55:[address] [facility] Systolic blood pressure 2022-11-18 05:34:00 152 mm[Hg] [facility] Diastolic blood pressure 2022-11-18 05:34:00 98 mm[Hg] [facility] Heart rate 2022-11-18 05:34:00 88 /min [facility] Respiratory rate 2022-11-18 05:34:00 18 /min [facility] Oxygen saturation in Arterial blood by Pulse oximetry 2022-11-18 05:34:00 97 /min [facility] Body temperature 2022-11-17 22:28:00 37.06 Radha [facility] Body height 2022-11-17 22:28:[address] [facility] Body weight 2022-11-17 22:28:[address] [facility] BMI 2022-11-17 22:28:00 38.97 kg/m2 [facility] Heart rate 2022-08-02 02:02:00 108 /min [facility] Respiratory rate 2022-08-02 02:02:00 28 /min [facility] Oxygen saturation in Arterial blood by Pulse oximetry 2022-08-02 02:02:00 97 /min [facility] Body temperature 2022-08-02 01:00:00 36.44 Radha [facility] Systolic blood pressure 2022-08-01 23:29:00 145 mm[Hg] [facility] Diastolic blood pressure 2022-08-01 23:29:00 103 mm[Hg] [facility] Body weight 2022-08-01 09:16:[address] [facility] BMI 2022-08-01 09:16:00 38.26 kg/m2 [facility] Body height 2022-07-31 21:54:[address] [facility] Systolic blood pressure 2022-05-08 16:40:00 146 mm[Hg] [facility] Diastolic blood pressure 2022-05-08 16:40:00 96 mm[Hg] [facility] Heart rate 2022-05-08 16:40:00 112 [facility] Body temperature 2022-05-08 16:40:00 36.78 Radha [facility] Respiratory rate 2022-05-08 16:40:00 18 /min [facility] Oxygen saturation in Arterial blood by Pulse oximetry 2022-05-08 16:40:00 94 /min [facility] Body height 2022-05-05 23:44:[address] [facility] Body weight 2022-05-05 23:37:[address] [facility] BMI 2022-05-05 23:37:00 31.89 kg/m2 [facility] Systolic blood pressure 2022-04-15 18:52:00 104 mm[Hg] [facility] Diastolic blood pressure 2022-04-15 18:52:00 82 mm[Hg] [facility] Heart rate 2022-04-15 18:52:00 114 /min [facility] Oxygen saturation in Arterial blood by Pulse oximetry 2022-04-15 18:52:00 98 /min [facility] Body temperature 2022-04-15 16:14:00 36.28 Radha [facility] Respiratory rate 2022-04-15 16:14:00 17 /min [facility] Body height 2022-04-13 21:08:[address] [facility] Body weight 2022-04-13 21:08:[address] [facility] BMI 2022-04-13 21:08:00 35.61 kg/m2 [facility] Systolic blood pressure 2021-11-23 21:30:00 132 mm[Hg] [facility] Diastolic blood pressure 2021-11-23 21:30:00 76 mm[Hg] [facility] Heart rate 2021-11-23 21:30:00 95 /min [facility] Respiratory rate 2021-11-23 21:30:00 13 /min [facility] Oxygen saturation in Arterial blood by Pulse oximetry 2021-11-23 21:30:00 97 /min [facility] Body temperature 2021-11-23 20:15:00 37.56 Radha [facility] Systolic blood pressure 2021-03-17 03:00:00 117 mm[Hg] [facility] Diastolic blood pressure 2021-03-17 03:00:00 76 mm[Hg] [facility] Heart rate 2021-03-17 03:00:00 104 /min [facility] Respiratory rate 2021-03-17 03:00:00 28 /min [facility] Oxygen saturation in Arterial blood by Pulse oximetry 2021-03-17 03:00:00 96 /min [facility] Body temperature 2021-03-17 00:39:00 37.11 Radha [facility] Body height 2021-03-17 00:39:[address] [facility] Body weight 2021-03-17 00:39:[address] [facility] BMI 2021-03-17 00:39:00 23.03 kg/m2 [facility] Systolic blood pressure 2021-03-15 00:14:00 149 mm[Hg] [facility] Diastolic blood pressure 2021-03-15 00:14:00 78 mm[Hg] [facility] Heart rate 2021-03-15 00:14:00 100 /min [facility] Body temperature 2021-03-15 00:14:00 37.33 Radha [facility] Respiratory rate 2021-03-15 00:14:00 24 /min [facility] Body height 2021-03-15 00:14:[address] [facility] Body weight 2021-03-15 00:14:[address] [facility] BMI 2021-03-15 00:14:00 23.03 kg/m2 [facility] Oxygen saturation in Arterial blood by Pulse oximetry 2021-03-15 00:14:00 98 /min [facility] Systolic blood pressure 2021-02-19 18:00:00 131 mm[Hg] [facility] Diastolic blood pressure 2021-02-19 18:00:00 80 mm[Hg] [facility] Heart rate 2021-02-19 18:00:00 83 /min [facility] Respiratory rate 2021-02-19 18:00:00 18 /min [facility] Oxygen saturation in Arterial blood by Pulse oximetry 2021-02-19 18:00:00 100 /min [facility] Body temperature 2021-02-19 15:47:00 37 Radha [facility] Body height 2021-02-19 15:47:[address] [facility] Body weight 2021-02-19 15:47:[address] [facility] BMI 2021-02-19 15:47:00 23.03 kg/m2 [facility] Heart rate 2023-09-08 08:54:00 118 /min [facility] Respiratory rate 2023-09-08 08:54:00 21 /min [facility] Oxygen saturation in Arterial blood by Pulse oximetry 2023-09-08 08:54:00 100 /min [facility] Systolic blood pressure 2023-09-08 08:32:00 110 mm[Hg] [facility] Diastolic blood pressure 2023-09-08 08:32:00 77 mm[Hg] [facility] Body temperature 2023-09-08 08:32:00 36.06 Radha [facility] Body height 2023-09-04 00:58:00 157.5 cm [facility] Body weight 2023-09-04 00:58:00 80 kg [facility] BMI 2023-09-04 00:58:00 32.26 kg/m2 [facility] Heart rate 2023-06-16 17:00:00 108 /min [facility] Systolic blood pressure 2023-06-16 15:31:00 101 mm[Hg] [facility] Diastolic blood pressure 2023-06-16 15:31:00 81 mm[Hg] [facility] Body temperature 2023-06-16 15:31:00 36.61 Radha [facility] Respiratory rate 2023-06-16 15:31:00 18 /min [facility] Oxygen saturation in Arterial blood by Pulse oximetry 2023-06-16 15:31:00 94 /min [facility] Body weight 2023-06-16 05:26:00 86.047 kg [facility] BMI 2023-06-16 05:26:00 33.60 kg/m2 [facility] Body height 2023-06-13 04:00:00 160 cm [facility] Systolic blood pressure 2023-06-04 13:02:00 93 mm[Hg] [facility] Diastolic blood pressure 2023-06-04 13:02:00 57 mm[Hg] [facility] Heart rate 2023-06-04 13:02:00 101 /min [facility] Respiratory rate 2023-06-04 13:02:00 22 /min [facility] Oxygen saturation in Arterial blood by Pulse oximetry 2023-06-04 13:02:00 95 /min room air [facility] Body temperature 2023-06-04 11:46:00 35.28 Radha [facility] Systolic blood pressure 2023-05-28 16:00:00 154 mm[Hg] [facility] Diastolic blood pressure 2023-05-28 16:00:00 82 mm[Hg] [facility] Heart rate 2023-05-28 16:00:00 89 /min [facility] Body temperature 2023-05-28 16:00:00 36.67 Radha [facility] Respiratory rate 2023-05-28 16:00:00 16 /min [facility] Oxygen saturation in Arterial blood by Pulse oximetry 2023-05-28 16:00:00 97 /min [facility] Body height 2023-05-28 07:00:00 157.5 cm [facility] Body weight 2023-05-28 07:00:00 87.544 kg [facility] BMI 2023-05-28 07:00:00 35.30 kg/m2 [facility] Body height 2023-05-26 09:12:00 157.5 cm [facility] Body weight 2023-05-26 09:12:00 87.091 kg [facility] BMI 2023-05-26 09:12:00 35.12 kg/m2 [facility] Respiratory rate 2023-04-02 16:35:00 18 /min [facility] Oxygen saturation in Arterial blood by Pulse oximetry 2023-04-02 16:35:00 98 /min [facility] Systolic blood pressure 2023-04-02 12:00:00 147 mm[Hg] [facility] Diastolic blood pressure 2023-04-02 12:00:00 97 mm[Hg] [facility] Heart rate 2023-04-02 12:00:00 106 /min [facility] Body temperature 2023-04-02 12:00:00 36.28 Radha [facility] Body height 2023-03-30 02:14:00 157.5 cm [facility] Body weight 2023-03-30 02:14:00 92.08 kg [facility] BMI 2023-03-30 02:14:00 37.13 kg/m2 [facility] Respiratory rate 2022-08-03 14:40:00 18 /min [facility] Systolic blood pressure 2022-08-03 12:13:00 112 mm[Hg] [facility] Diastolic blood pressure 2022-08-03 12:13:00 77 mm[Hg] [facility] Heart rate 2022-08-03 12:13:00 115 /min [facility] Oxygen saturation in Arterial blood by Pulse oximetry 2022-08-03 12:13:00 93 /min [facility] Body temperature 2022-08-03 12:00:00 36.83 Radha [facility] Body height 2022-08-02 21:52:00 160.2 cm [facility] Body weight 2022-08-02 21:52:00 95 kg [facility] BMI 2022-08-02 21:52:00 37.02 kg/m2 [facility] BP Systolic 2022-07-24 13:31:00 136 [...] Clinician Source POCT-GLUCOSE METER 2023-09-08 08:40:00 Bud [facility] CBC W/PLT COUNT & AUTO DIFFERENTIAL 2023-09-08 04:16:00 Joshua [facility] BASIC METABOLIC PANEL 2023-09-08 04:16:00 Joshua [facility] MAGNESIUM 2023-09-08 04:16:00 Joshua [facility] PHOSPHORUS 2023-09-08 04:16:00 Joshua [facility] CBC W/PLT COUNT & AUTO DIFFERENTIAL 2023-09-08 04:16:00 Joshua [facility] POCT-GLUCOSE METER 2023-09-07 21:29:00 Bud [facility] XR KNEE 3 VIEWS LEFT 2023-09-07 19:21:02 Bud [facility] VENOUS DOPPLER LEGS BILATERAL 2023-09-07 12:45:00 Joshua [facility] CBC W/PLT COUNT & AUTO DIFFERENTIAL 2023-09-07 03:17:00 Joshua [facility] BASIC METABOLIC PANEL 2023-09-07 03:17:00 Joshua [facility] MAGNESIUM 2023-09-07 03:17:00 Joshua [facility] PHOSPHORUS 2023-09-07 03:17:00 Joshua [facility] CBC W/PLT COUNT & AUTO DIFFERENTIAL 2023-09-07 03:17:00 Joshua [facility] POCT-GLUCOSE METER 2023-09-06 21:17:00 Bud [facility] POCT-GLUCOSE METER 2023-09-06 18:37:00 Bud [facility] POCT-GLUCOSE METER 2023-09-06 13:16:00 Bud [facility] POCT-GLUCOSE METER 2023-09-06 08:21:00 Bud [facility] CBC W/PLT COUNT & AUTO DIFFERENTIAL 2023-09-06 04:49:00 Joshua [facility] BASIC METABOLIC PANEL 2023-09-06 04:49:00 Joshua [facility] MAGNESIUM 2023-09-06 04:49:00 Joshua [facility] PHOSPHORUS 2023-09-06 04:49:00 Joshua [facility] CBC W/PLT COUNT & AUTO DIFFERENTIAL 2023-09-06 04:49:00 Joshua [facility] POCT-GLUCOSE METER 2023-09-05 21:24:00 Bdu [facility] MR BRAIN WITH & WITHOUT IV CONTRAST 2023-09-05 11:25:07 Sandi [facility]man [facility] POCT-GLUCOSE METER 2023-09-05 08:10:00 Bud [facility] CBC W/PLT COUNT & AUTO DIFFERENTIAL 2023-09-05 04:44:00 Joshua [facility] BASIC METABOLIC PANEL 2023-09-05 04:44:00 Joshua [facility] MAGNESIUM 2023-09-05 04:44:00 Joshua [facility] PHOSPHORUS 2023-09-05 04:44:00 Joshua [facility] POCT-GLUCOSE METER 2023-09-05 04:44[facility] & AUTO DIFFERENTIAL 2023-09-05 04:44:00 Joshua [facility] POCT-GLUCOSE METER 2023-09-04 21:38[facility] 2023-09-04 15:42[facility] SARS[facility]OV[facility]/INFLUENZA/RSV RT-PCR 2023-09-04 11:25:00 Jovani Mcnally [facility] POCT-GLUCOSE METER 2023-09-04 10:53:00 Pankaj [facility] POCT-GLUCOSE METER 2023-09-04 08:04:00 Pankaj [facility] PROCALCITONIN 2023-09-04 06:56:00 [facility] IRON, TIBC, % SAT. (WITHOUT FERRITIN) 2023-09-04 06:56:00 [facility] FERRITIN 2023-09-04 06:56:00 [facility] BLOOD CULTURE 2023-09-04 06:37:00 Randall [facility] MR LUMBAR SPINE WITHOUT IV CONTRAST 2023-09-04 05:47:25 Melvi [facility] MR THORACIC SPINE WITHOUT IV CONTRAST 2023-09-04 04:53:00 Melvi [facility] MR CERVICAL SPINE WITHOUT IV CONTRAST 2023-09-04 04:18:00 Melvi [facility] CT THORACIC SPINE WITHOUT IV CONTRAST 2023-09-04 03:08:00 [facility] CT LUMBAR SPINE WITHOUT IV CONTRAST 2023-09-04 03:08:00 [facility] LACTIC ACID, VENOUS 2023-09-04 [facility] 2023-09-04 01:42:00 Monroe [facility] CBC W/PLT COUNT & AUTO DIFFERENTIAL 2023-09-04 00:51:00 Melvi [facility] COMPREHENSIVE METABOLIC PANEL 2023-09-04 00:51:00 Melvi [facility] MAGNESIUM 2023-09-04 00:51:00 Melvi [facility] PHOSPHORUS 2023-09-04 00:51:00 Melvi [facility] PROTHROMBIN TIME/INR 2023-09-04 00:51:00 Melvi [facility] APTT 2023-09-04 00:51:00 Melvi [facility] B-TYPE NATRIURETIC FACTOR (BNP) 2023-09-04 00:51:00 Melvi [facility] URINALYSIS WITHOUT MICROSCOPIC 2023-09-04 00:51:00 Marixa Ogdenew [facility] RAPID DRUG SCREEN, URINE 2023-09-04 00:51:00 Marixa Ogdenew [facility] D-DIMER 2023-09-04 00:51:00 [place] Loyoal [facility] FIBRINOGEN 2023-09-04 00:51:00 RandallJorge ray [facility] CBC W/PLT COUNT & AUTO DIFFERENTIAL 2023-09-04 00:51:00 [place] Ogden [facility] EKG-SCANNED 2023-09-04 00:00:00 Provider, Default Scanning [facility] LACTIC ACID WHOLE BLOOD 2023-08-12 20:31:00 Brian Bryan [facility] COMP. METABOLIC PANEL (38535) 2023-08-12 20:29:00 Brian Bryan [facility] CBC WITH DIFF 2023-08-12 20:29:00 Singer Brian [facility] CONSENT/REFUSAL FOR DIAGNOSI S AND TREATMENT 2023-08-12 19:43:16 Doctor Unassigned, [place] [facility] TRANSESOPHAGEAL ECHO 2023-06-16 11:05:00 Aydee Go [facility] T SPOT TB 2023-06-15 04:51:00 [facility]-GLUCAN WITH REFLEX TO TITER 2023-06-15 04:51:00 [facility] ASPERGILLUS GALACTOMANNAN ANTIGEN 2023-06-15 04:51:00 Rsosy [facility] VANCOMYCIN LEVEL, TROUGH 2023-06-15 04:51:00 Kaylene Mendosa [facility] T-SPOT(R).TB (QUEST) 2023-06-15 04:27:00 System, Provider Not In [facility] T-SPOT(R).TB (QUEST) 2023-06-15 04:27:00 System, Provider Not In [facility] ECHO W CONTRAST & DOPPLER 2023-06-14 09:22:00 [facility] HEMOGLOBIN A1C 2023-06-14 04:08:00 Cara Burgess [facility] CBC (HEMOGRAM ONLY) 2023-06-14 04:08:00 [facility] BASIC METABOLIC PANEL 2023-06-14 04:08:00 [facility] CRYPTOCOCCAL ANTIGEN 2023-06-13 17:21:00 Lauren Blair [facility] HC LAB HIV-1 AG W/HIV-1&2 AB 2023-06-13 17:21:00 Rossy [facility] VENOUS DOPPLER ARM, LEFT 2023-06-13 17:20:00 Cara Burgess [facility] LEGIONELLA ANTIGEN, URINE 2023-06-13 17:00:00 [facility] SPUTUM CULTURE + GRAM STAIN 2023-06-13 14:33:00 [facility] MR LUMBAR SPINE WITH & WITHOUT IV CONTRAST 2023-06-13 13:03:47 Burt Nelson [facility] ECG 12-LEAD 2023-06-13 11:47:02 [facility] ECG 12-LEAD 2023-06-13 11:47:02 Unknown, Hl7 Doctor [facility] MRSA SCREEN 2023-06-13 09:19:00 [facility] CBC W/PLT COUNT & AUTO DIFFERENTIAL 2023-06-13 06:03:00 Cara Burgess [facility] COMPREHENSIVE METABOLIC PANEL 2023-06-13 06:03:00 Cara Burgess [facility] PROTHROMBIN TIME/INR 2023-06-13 06:03:00 Cara Burgess [facility] CREATINE KINASE (CK) 2023-06-13 06:03:00 [facility] CBC W/PLT COUNT & AUTO DIFFERENTIAL 2023-06-13 06:03:00 Cara Burgess K [facility] BLOOD CULTURE 2023-06-13 06:02:00 Cara Burgess [facility] CBC W/PLT COUNT & AUTO DIFFERENTIAL 2023-06-02 04:41:00 Kimberley Sunil [facility] BASIC METABOLIC PANEL 2023-06-02 04:41:00 Kimberley Sunil [facility] MAGNESIUM 2023-06-02 04:41:00 Kimberley Sunil [facility] PHOSPHORUS 2023-06-02 04:41:00 Kimberley Sunil [facility] CBC W/PLT COUNT & AUTO DIFFERENTIAL 2023-06-02 04:41:00 Kimberley Sunil [facility] XR SPINE LUMBAR 1 VIEW 2023-06-01 10:31:00 Adam Garcia [facility] XR SPINE LUMBAR 1 VIEW 2023-06-01 09:46:00 [facility] LAMINECTOMY, SPINE, LUMBAR 2023-06-01 09:10:00 JoseAdam [facility] PROCEDURE W/ C-ARM 2023-06-01 09:10:00 [place] Adam C [facility] LAMINECTOMY, SPINE, LUMBAR 2023-06-01 07:30:00 [place] Adam Adi [facility] PROCEDURE W/ C-ARM 2023-06-01 07:30:00 Adam Garcia [facility] SCREEN, URINE 2023-06-01 04:33:00 Adam Garcia [facility] BASIC METABOLIC PANEL 2023-05-31 22:55:[address] [facility] CBC W/PLT COUNT & AUTO DIFFERENTIAL 2023-05-31 22:55:[address] [facility] PT/APTT 2023-05-31 22:55:[address] [facility] CBC W/PLT COUNT & AUTO DIFFERENTIAL 2023-05-31 22:55:[address] [facility] CT NECK SOFT TISSUE WITHOUT IV CONTRAST 2023-05-31 09:39:30 [place], [facility] TYPE AND SCREEN, AUTOMATED 2023-05-31 09:13:00 [facility] BASIC METABOLIC PANEL 2023-05-29 06:43:[facility] CBC W/PLT COUNT & AUTO DIFFERENTIAL 2023-05-29 06:43:00 [facility] CBC W/PLT COUNT & AUTO DIFFERENTIAL 2023-05-29 06:43:00 [facility] XR SPINE CERVICAL 2 OR 3 VIEWS 2023-05-28 18:57:00 [facility] FL FLUORO NON-SPECIFIC UP TO 1 HOUR 2023-05-28 10:48:00 [facility] [place] FLUORO NON-SPECIFIC UP TO 1 HOUR 2023-05-28 10:07:00 Adam Garcia [facility] DISCECTOMY, SPINE, CERVICAL, ANTERIOR APPROACH, WITH FUSION 2023-05-28 08:15:00 [place] [facility] INSERTION, HARDWARE, SPINAL 2023-05-28 08:15:00 Jose [facility] PROCEDURE, ALLOGRAFT, FOR SPINE SURGERY 2023-05-28 08:15:00 [place] [facility] AUTOGRAFT FOR SPINE SURGERY 2023-05-28 08:15:00 Jose [facility] PROCEDURE W/ C-ARM 2023-05-28 08:15:00 [place] [facility] NEUROPHYSIOLOGIC MONITORING, INTRAOPERATIVE 2023-05-28 08:15:00 Jose [facility] PROCEDURE, USING OPERATING MICROSCOPE 2023-05-28 08:15:00 Jose [facility] HCG, QUANTITATIVE, 2023-05-28 07:42:00 Yue Bui [facility] TYPE AND SCREEN, AUTOMATED 2023-05-28 07:42:00 Ketan Monet [facility] XR CHEST 1 VIEW PORTABLE / BEDSIDE 2023-04-01 15:32:16 Thomas Lozoya [facility] B-TYPE NATRIURETIC FACTOR (BNP) 2023-04-01 13:32:00 Thomas Lozoya [facility] ECHO W CONTRAST & DOPPLER 2023-03-31 20:18:37 Jasen [facility] MR CERVICAL SPINE WITHOUT IV CONTRAST 2023-03-31 09:25:00 Selin Lewis [facility] CBC (HEMOGRAM ONLY) 2023-03-31 03:45:00 Jasen [facility] COMPREHENSIVE METABOLIC PANEL 2023-03-31 03:45:00 Jasen [facility] ARTERIAL DOPPLER LEGS BILATERAL 2023-03-30 15:45:00 [facility] (ALEISHA'[facility] W/ DOPPLER) ONLY 2023-03-30 15:44:00 Jasen [facility] ECG 12-LEAD 2023-03-30 13:06:22 Jasen [facility] ECG 12-LEAD 2023-03-30 13:06:22 Unknown, Hl7 [facility] MR THORACIC SPINE WITHOUT IV CONTRAST 2023-03-30 12:29:58 [facility] LUMBAR SPINE WITHOUT IV CONTRAST 2023-03-30 11:58:00 Gloria Reyes [facility] EEG AWAKE AND DROWSY 2023-03-30 09:57:53 [facility], TOTAL 2023-03-30 09:06:00 Liudmila Smart [facility] URINALYSIS W/ REFLEX URINE CULTURE 2023-03-30 03:54:00 [facility] CBC (HEMOGRAM ONLY) 2023-03-30 03:52:00 Jasen [facility] COMPREHENSIVE METABOLIC PANEL 2023-03-30 03:52:00 Jasen [facility] HEMOGLOBIN A1C 2023-03-30 03:52:00 Mariah Aldridge [facility] PT/APTT 2023-03-30 03:52:00 Thomas Lozoya [facility] EKG-SCANNED 2023-03-29 00:00:00 Provider, Default Scanning [facility] CT HEAD WO CONTRAST 2022-12-11 18:36:49 Alfonso Alvarado [facility] URINE DRUG (IMMUNOASSAY) - COMPREHENSIVE DRUG SCREEN 2022-12-11 17:13:00 Alfonso Alvarado [facility] URINALYSIS 2022-12-11 17:13:00 Alfonso Alvarado [facility] CT CHEST PULMONARY ANGIOGRAM 2022-12-11 16:26:39 Alfonso Alvarado [facility] MAGNESIUM 2022-12-11 14:57:00 Alfonso Alvraado Lorelei [facility] COMP. METABOLIC PANEL ([id number]) 2022-12-11 14:57:00 Alfonso Alvarado [facility] D-DIMER 2022-12-11 14:15:00 Alfonso Alvarado [facility] XR CHEST 1 VW 2022-12-11 14:10:26 Alfonso Alvarado Lorelei [facility] TROPONIN I 2022-12-11 14:02:00 Alfonso Alvarado Lorelei [facility] CBC WITH DIFF 2022-12-11 14:02:00 Alfonso Alvarado Lorelei [facility] N-TERMINAL PRO-BNP 2022-12-11 14:02:00 Alfonso Alvarado Lorelei [facility] HB ECG ROUTINE & RHYTHM STRIP 2022-12-11 14:01:08 Alfonso Alvarado Lorelei [facility] CONSENT/REFUSAL FOR DIAGNOSI S AND TREATMENT 2022-12-11 13:52:01 Doctor Unassigned, [place] [facility] ECG 12-LEAD 2022-08-03 05:03:32 Unknown, Hl7 [facility] ECG 12-LEAD 2022-08-03 05:03:32 Unknown, Hl7 Doctor [facility] LIPID PANEL 2022-08-02 21:14:00 [facility] TSH/FREE T4 IF INDICATED 2022-08-02 21:14:00 [facility] VITAMIN B12 2022-08-02 21:14:00 [facility] HEMOGLOBIN A1C 2022-08-02 21:14:00 [facility] COMPREHENSIVE METABOLIC PANEL 2022-08-02 21:14:00 [facility] CBC W/PLT COUNT & AUTO DIFFERENTIAL 2022-08-02 21:14:00 [facility] RPR 2022-08-02 21:14:00 [facility] HC LAB HIV-1 AG W/HIV-1&2 AB 2022-08-02 21:14:00 [facility] C-REACTIVE PROTEIN 2022-08-02 21:14:00 [facility] CBC W/PLT COUNT & AUTO DIFFERENTIAL 2022-08-02 21:14:00 [facility] EKG-SCANNED 2022-08-02 00:00:00 Provider, Default Scanning [facility] CT HEAD WO CONTRAST 2022-08-01 23:52:15 Lorenza Lowry [facility] GALV ONLY - INFLUENZA A B RS V PCR 2022-08-01 18:28:00 Letitia Chambers [facility] TRANSTHORACIC ECHO (TTE) COMPLETE W/ CONTRAST 2022-08-01 14:42:00 Kylee Montez [facility] MAGNESIUM 2022-08-01 10:42:00 Lorenza Lowry [facility] BASIC METABOLIC PANEL (NA, K , CL, CO2, GLUCOSE, BUN, CREATININE, CA) 2022-08-01 10:42:00 Lorenza Lowry [facility] CBC WITH DIFF 2022-08-01 10:42:00 Lorenza Lowry [facility] N-TERMINAL PRO-BNP 2022-08-01 10:42:00 [facility] ([facility]OMATED[facility] 2022-08-01 06:56:00 Lorenza Lowry [facility] CRITICAL CARE 2022-07-31 22:31:36 [facility]-31 20:52[facility]00 [facility] (IMMUNOASSAY) - COMPREHENSIVE DRUG SCREEN W/O REFLEX 2022-07-31 20:52:00 [facility] 1 VW 2022-07-31 18:45:17 Sav Rondon [facility] LIPASE 2022-07-31 17:58:00 [facility] TROPONIN I 2022-07-31 17:58:00 [facility] COMP. METABOLIC PANEL (84070) 2022-07-31 17:58:00 [facility] WITH DIFF 2022-07-31 17:58:00 [facility] PROTHROMBIN TIME / INR 2022-07-31 17:58:00 [facility] ACTIVATED PARTIAL THRMPLAS DAVID 2022-07-31 17:58:00 [facility] N-TERMINAL PRO-BNP 2022-07-31 17:58:00 [facility]OUTINE & RHYTHM STRIP 2022-07-31 17:46:28 [facility] NOTICE OF PRIVACY PRACTICES 2022-07-31 17:35:38 Doctor Unassigned, [place] [facility] CONSENT/REFUSAL FOR DIAGNOSI S AND TREATMENT 2022-07-31 17:35:13 Doctor Unassigned, [place] [facility] PHOSPHORUS 2022-05-08 05:51:00 Shefali [facility] MAGNESIUM 2022-05-08 05:51:00 Shefali [facility] BASIC METABOLIC PANEL (NA, K , CL, CO2, GLUCOSE, BUN, CREATININE, CA) 2022-05-08 05:51:00 Shefali [facility] CBC WITH DIFF 2022-05-08 05:51:00 Shefali [facility] BASIC METABOLIC PANEL (NA, K , CL, CO2, GLUCOSE, BUN, CREATININE, CA) 2022-05-07 07:09:00 John Cintron [facility] CBC WITH DIFF 2022-05-07 07:09:00 John Cintron [facility] POCT GLUCOSE (AUTOMATED) 2022-05-07 01:16:00 Brandyn Ibrahim [facility] HB ABO GROUPING 2022-05-06 05:07:00 Ismael Dunn [facility] BASIC METABOLIC PANEL (NA, K , CL, CO2, GLUCOSE, BUN, CREATININE, CA) 2022-05-06 05:04:00 Shefali [facility] CBC WITH DIFF 2022-05-06 05:04:00 Shefali [facility] KEPPRA (LEVETIRACETAM) 2022-05-06 05:04:00 Shefali [facility] MR LUMBAR SPINE WO CONTRAST 2022-05-06 02:54:37 Ender Monet [facility] ELECTROENCEPHALOGRAM 2022-05-06 00:00:00 John Cintron [facility] BASIC METABOLIC PANEL (NA, K , CL, CO2, GLUCOSE, BUN, CREATININE, CA) 2022-05-05 07:57:00 [facility] 2022-05-05 07:57:00 Ismael Dunn [facility] PROTHROMBIN TIME / INR 2022-05-05 07:57:00 Ismael Dunn [facility] ACTIVATED PARTIAL THRMPLAS DAVID 2022-05-05 07:57:00 Ismael Dunn [facility] FIBRINOGEN 2022-05-05 07:57:00 Ismael Dunn [facility] EMERGENCY SERVICES AGREEMENT S AND AUTHORIZATIONS 2022-05-04 05:01:00 Doctor Unassigned, [place] [facility] VITAMIN D, 25-OH 2022-04-15 16:53:00 Sen Toledo [facility] MR THORACIC SPINE WO CONTRAST 2022-04-15 11:56:19 Lobaina, [facility] MR CERVICAL SPINE WO CONTRAST 2022-04-15 11:20:00 Harshil [facility] BASIC METABOLIC PANEL (NA, K , CL, CO2, GLUCOSE, BUN, CREATININE, CA) 2022-04-15 10:36:00 Charmaine Morataya [facility] TEST, URINE 2022-04-15 04:39:00 Harshil [facility] URINE DRUG (IMMUNOASSAY) - COMPREHENSIVE DRUG SCREEN 2022-04-15 04:39:00 Harshil [facility] URINALYSIS 2022-04-15 04:39:00 Harshil [facility] TRANSTHORACIC ECHO (TTE) COMPLETE W/ CONTRAST 2022-04-14 16:37:03 Harshil [facility] KEPPRA (LEVETIRACETAM) 2022-04-14 15:30:00 Harshil [facility] MAGNESIUM 2022-04-14 10:03:00 Harshil [facility] BASIC METABOLIC PANEL (NA, K , CL, CO2, GLUCOSE, BUN, CREATININE, CA) 2022-04-14 10:03:00 Harshil [facility] MR LUMBAR SPINE WO CONTRAST 2022-04-14 02:48:12 Harshil [facility] MR STROKE BRAIN WO CONTRAST 2022-04-14 02:29:00 Harshil [facility] CT STROKE ANGIOGRAM HEAD 2022-04-13 18:40:00 Sapna Vargas [facility] CT STROKE ANGIOGRAM NECK 2022-04-13 18:40:00 Sapna Vargas [facility] CT STROKE HEAD WO CONTRAST 2022-04-13 18:36:00 Sapna Vargas [facility] TROPONIN I 2022-04-13 18:17:00 Sapna Vargas [facility] THYROID STIMULATING HORMONE 2022-04-13 18:17:00 Harshil [facility] BASIC METABOLIC PANEL (NA, K , CL, CO2, GLUCOSE, BUN, CREATININE, CA) 2022-04-13 18:17:00 Sapna Vargas [facility] LIPID PANEL ([id number])(TOTAL CHOLESTEROL, TRIGLYCERIDES, HDL) 2022-04-13 18:17:00 Harshil Soumya [facility] CBC WITHOUT DIFF 2022-04-13 18:17:00 Sapna Vargas [facility] GLYCOSYLATED HEMOGLOBIN (A1C) 2022-04-13 18:17:00 Harshil Soumya [facility] PROTHROMBIN TIME / INR 2022-04-13 18:17:00 Sapna Vargas [facility] ACTIVATED PARTIAL THRMPLAS DAVID 2022-04-13 18:17:00 Sapna Vargas [facility] COVID-19 (ID NOW RAPID TESTING) 2022-04-13 18:17:00 Sapna Vargas [facility] LAB ONLY COVID INTERPRETATION 2022-04-13 18:17:00 Sapna Vargas [facility] HB ECG ROUTINE & RHYTHM STRIP 2022-04-13 18:15:49 Sapna Vargas [facility] CONSENT/REFUSAL FOR DIAGNOSI S AND TREATMENT 2022-04-13 18:05:14 Doctor Unassigned, [place] [facility] HOSPITAL ADMISSION 2022-04-13 05:01:00 Doctor Unassigned, [place] [facility] SARS-COV-2 COVID-19 VACCINE 14 YRS+,0.3ML,IM (PFIZER - [facility]) 2022-02-19 15:21:12 Doctor Unassigned, [facility] URINE DRUG (IMMUNOASSAY) - COMPREHENSIVE DRUG SCREEN W/O REFLEX 2021-11-23 21:21:00 Nichelle Virk [facility] CT HEAD WO CONTRAST 2021-11-23 20:58:00 Nichelle Virk [facility] POCT TEST 2021-11-23 20:46:00 Nichelle Virk [facility] URINALYSIS 2021-11-23 20:43:00 Nichelle Virk [facility] LIPASE 2021-11-23 20:27:00 Nichelle Virk [facility] TROPONIN I 2021-11-23 20:27:00 Nichelle Virk [facility] COMP. METABOLIC PANEL ([id number]) 2021-11-23 20:27:00 Nichelle Virk [facility] CBC WITH DIFF 2021-11-23 20:27:00 Nichelle Virk [facility] POCT GLUCOSE (AUTOMATED) 2021-11-23 20:15:00 Doctor Unassigned, [facility] SARS-COV-2 COVID-19 VACCINE,0.3ML,IM (PFIZER) 2021-05-24 14:23:12 Doctor Unassigned, [facility] SARS-COV-2 COVID-19 VACCINE,0.3ML,IM (PFIZER) 2021-05-03 14:59:29 Doctor Unassigned, [facility] EMERGENCY SERVICES AGREEMENT S AND AUTHORIZATIONS 2021-04-16 05:01:00 Doctor Unassigned, [facility] URINALYSIS 2021-03-17 03:09:00 Fabrice Chakraborty [facility] XR CHEST 1 VW 2021-03-17 01:45:07 [facility] TROPONIN I 2021-03-17 01:35:00 Fabrice Chakraborty [facility] COMP. METABOLIC PANEL ([id number]) 2021-03-17 01:35:00 Fabrice Chakraborty [facility] CBC WITH DIFF 2021-03-17 01:35:00 [facility] N-TERMINAL PRO-BNP 2021-03-17 01:35:00 Fabrice Chakraborty [facility] COVID-19 (ID NOW RAPID TESTING) 2021-03-17 00:58:00 Brian Bryan [facility] CONSENT/REFUSAL FOR DIAGNOSI S AND TREATMENT 2021-03-17 00:32:59 Doctor Unassigned, [facility] COVID-19 (ID NOW RAPID TESTING) 2021-02-19 17:04:00 Anali Monroy [facility] CT ABDOMEN PELVIS W CONTRAST 2021-02-19 16:41:18 Anali Monroy [facility] LIPASE 2021-02-19 15:58:00 Anali Monroy [facility] COMP. METABOLIC PANEL ([id number]) 2021-02-19 15:58:00 Anali Monroy [facility] CBC WITH DIFF 2021-02-19 15:58:00 Anali Monroy [facility] URINALYSIS 2021-02-19 15:58:00 Anali Monroy [facility] NOTICE OF PRIVACY PRACTICES 2021-02-19 15:30:46 Doctor Unassigned, [facility] CONSENT/REFUSAL FOR DIAGNOSI S AND TREATMENT 2021-02-19 15:30:30 Doctor Unassigned, [facility] Plan of Care Planned Activity Planned Date Details Comments Source Future Scheduled Test 2025-08-02 00:00:00 Lipid panel (procedure) [code = 14348210] [facility] Future Scheduled Test 2025-08-02 00:00:00 Lipid panel (procedure) [code = 56182330] [facility] Future Scheduled Test 2025-08-02 00:00:00 Lipid panel (procedure) [code = 09964110] [facility] Future Scheduled Test 2025-08-02 00:00:00 Lipid panel (procedure) [code = 93789141] [facility] Future Scheduled Test 2025-08-02 00:00:00 Lipid panel (procedure) [code = 22408468] [facility] Future Scheduled Test 2025-08-02 00:00:00 Lipid panel (procedure) [code = 13485475] [facility] Future Scheduled Test 2025-08-02 00:00:00 Lipid panel (procedure) [code = 28335487] [facility] Future Scheduled Test 2025-08-02 00:00:00 Lipid panel (procedure) [code = 43508700] [facility] Future Scheduled Test 2025-08-02 00:00:00 Lipid panel (procedure) [code = 34471669] [facility] Future Scheduled Test 2025-08-02 00:00:00 Lipid panel (procedure) [code = 13998095] [facility] Future Scheduled Test 2025-08-02 00:00:00 Lipid panel (procedure) [code = 64271449] [facility] Future Scheduled Test 2025-08-02 00:00:00 Lipid panel (procedure) [code = 79728012] [facility] Future Scheduled Test 2025-08-02 00:00:00 Lipid panel (procedure) [code = 44688167] [facility] Future Scheduled Test 2025-08-02 00:00:00 Lipid panel (procedure) [code = 33556267] [facility] Future Scheduled Test 2025-08-02 00:00:00 Lipid panel (procedure) [code = 58640962] [facility] Future Scheduled Test 2025-08-02 00:00:00 Lipid panel (procedure) [code = 31324962] [facility] Future Scheduled Test 2025-08-02 00:00:00 Lipid panel (procedure) [code = 71150645] [facility] Future Scheduled Test 2025-08-02 00:00:00 Lipid panel (procedure) [code = 88700825] [facility] Future Scheduled Test 2025-08-02 00:00:00 Lipid panel (procedure) [code = 02303137] [facility] Future Scheduled Test 2025-08-02 00:00:00 Lipid panel (procedure) [code = 88954444] [facility] Future Scheduled Test 2025-08-02 00:00:00 Lipid panel (procedure) [code = 34328053] [facility] Future Scheduled Test 2025-08-02 00:00:00 Lipid panel (procedure) [code = 08541364] [facility] Future Scheduled Test 2025-08-02 00:00:00 Lipid panel (procedure) [code = 78080232] [facility] Future Scheduled Test 2025-08-02 00:00:00 Lipid panel (procedure) [code = 02769649] [facility] Future Scheduled Test 2025-08-02 00:00:00 Lipid panel (procedure) [code = 15554982] [facility] Future Scheduled Test 2025-08-02 00:00:00 Lipid panel (procedure) [code = 35424021] [facility] Future Scheduled Test 2025-08-02 00:00:00 Lipid panel (procedure) [code = 03035682] [facility] Future Scheduled Test 2025-08-02 00:00:00 Lipid panel (procedure) [code = 09322920] [facility] Future Scheduled Test 2025-08-02 00:00:00 Lipid panel (procedure) [code = 61657402] [facility] Future Scheduled Test 2025-08-02 00:00:00 Lipid panel (procedure) [code = 35858627] [facility] Future Scheduled Test 2025-08-02 00:00:00 Lipid panel (procedure) [code = 96274763] [facility] Future Scheduled Test 2025-08-02 00:00:00 Lipid panel (procedure) [code = 01646818] [facility] Future Scheduled Test 2025-08-02 00:00:00 Lipid panel (procedure) [code = 39373914] [facility] Future Scheduled Test 2025-08-02 00:00:00 Lipid panel (procedure) [code = 58597386] [facility] Future Scheduled Test 2025-08-02 00:00:00 Lipid panel (procedure) [code = 15562514] [facility] Future Scheduled Test 2025-08-02 00:00:00 Lipid panel (procedure) [code = 91243558] [facility] Future Scheduled Test 2025-08-02 00:00:00 Lipid panel (procedure) [code = 73202754] [facility] Future Scheduled Test 2025-08-02 00:00:00 Lipid panel (procedure) [code = 96788046] [facility] Future Scheduled Test 2025-08-02 00:00:00 Lipid panel (procedure) [code = 68406753] [facility] Future Scheduled Test 2025-08-02 00:00:00 Lipid panel (procedure) [code = 63116765] [facility] Future Scheduled Test 2025-08-02 00:00:00 Lipid panel (procedure) [code = 90963750] [facility] Future Scheduled Test 2025-08-02 00:00:00 Lipid panel (procedure) [code = 72117699] [facility] Future Scheduled Test 2025-08-02 00:00:00 Lipid panel (procedure) [code = 51235601] [facility] Future Scheduled Test 2025-08-02 00:00:00 Lipid panel (procedure) [code = 91299669] [facility] Future Scheduled Test 2025-08-02 00:00:00 Lipid panel (procedure) [code = 05491111] [facility] Future Scheduled Test 2025-08-02 00:00:00 Lipid panel (procedure) [code = 01648997] [facility] Future Scheduled Test 2025-08-02 00:00:00 Lipid panel (procedure) [code = 38571511] [facility] Future Scheduled Test 2025-08-02 00:00:00 Lipid panel (procedure) [code = 23198673] [facility] Future Scheduled Test 2025-08-02 00:00:00 Lipid panel (procedure) [code = 46670503] [facility] Future Scheduled Test 2025-08-02 00:00:00 Lipid panel (procedure) [code = 97589741] [facility] Future Scheduled Test 2025-08-02 00:00:00 Lipid panel (procedure) [code = 22529201] [facility] Future Scheduled Test 2025-08-02 00:00:00 Lipid panel (procedure) [code = 24319652] [facility] Future Scheduled Test 2025-08-02 00:00:00 Lipid panel (procedure) [code = 54338806] [facility] Future Scheduled Test 2025-08-02 00:00:00 Lipid panel (procedure) [code = 84971743] [facility] Future Scheduled Test 2025-08-02 00:00:00 Lipid panel (procedure) [code = 98047851] [facility] Future Scheduled Test 2025-08-02 00:00:00 Lipid panel (procedure) [code = 45786986] [facility] Future Scheduled Test 2025-08-02 00:00:00 Lipid panel (procedure) [code = 53584488] [facility] Future Scheduled Test 2025-08-02 00:00:00 Lipid panel (procedure) [code = 85906448] [facility] Future Scheduled Test 2025-08-02 00:00:00 Lipid panel (procedure) [code = 71364766] [facility] Future Scheduled Test 2025-08-02 00:00:00 Lipid panel (procedure) [code = 01394464] [facility] Scheduled Test 2024-05-28 00:00:00 Tobacco Cessation Counseling and Screening (12+) [code = Tobacco Cessation Counseling and Screening (12+)] [facility] Scheduled Test 2024-05-28 00:00:00 Tobacco Cessation Counseling and Screening (12+) [code = Tobacco Cessation Counseling and Screening (12+)] [facility] Scheduled Test 2024-05-28 00:00:00 Tobacco Cessation Counseling and Screening (12+) [code = Tobacco Cessation Counseling and Screening (12+)] [facility] Scheduled Test 2024-05-28 00:00:00 Tobacco Cessation Counseling and Screening (12+) [code = Tobacco Cessation Counseling and Screening (12+)] [facility] Scheduled Test 2024-05-28 00:00:00 Tobacco Cessation Counseling and Screening (12+) [code = Tobacco Cessation Counseling and Screening (12+)] [facility] Scheduled Test 2024-05-28 00:00:00 Tobacco Cessation Counseling and Screening (12+) [code = Tobacco Cessation Counseling and Screening (12+)] [facility] Scheduled Test 2024-05-28 00:00:00 Tobacco Cessation Counseling and Screening (12+) [code = Tobacco Cessation Counseling and Screening (12+)] [facility] Scheduled Test 2024-05-28 00:00:00 Tobacco Cessation Counseling and Screening (12+) [code = Tobacco Cessation Counseling and Screening (12+)] [facility] Future Scheduled Test 2024-05-28 00:00:00 Tobacco Cessation Counseling and Screening (12+) [code = Tobacco Cessation Counseling and Screening (12+)] [facility] Scheduled Test 2024-05-28 00:00:00 Tobacco Cessation Counseling and Screening (12+) [code = Tobacco Cessation Counseling and Screening (12+)] [facility] Scheduled Test 2024-05-28 00:00:00 Tobacco Cessation Counseling and Screening (12+) [code = Tobacco Cessation Counseling and Screening (12+)] [facility] Scheduled Test 2024-05-28 00:00:00 Tobacco Cessation Counseling and Screening (12+) [code = Tobacco Cessation Counseling and Screening (12+)] [facility] Scheduled Test 2024-05-28 00:00:00 Tobacco Cessation Counseling and Screening (12+) [code = Tobacco Cessation Counseling and Screening (12+)] [facility] Scheduled Test 2024-05-28 00:00:00 Tobacco Cessation Counseling and Screening (12+) [code = Tobacco Cessation Counseling and Screening (12+)] [facility] Scheduled Test 2024-05-28 00:00:00 Tobacco Cessation Counseling and Screening (12+) [code = Tobacco Cessation Counseling and Screening (12+)] [facility] Scheduled Test 2024-05-28 00:00:00 Tobacco Cessation Counseling and Screening (12+) [code = Tobacco Cessation Counseling and Screening (12+)] [facility] Scheduled Test 2024-05-28 00:00:00 Tobacco Cessation Counseling and Screening (12+) [code = Tobacco Cessation Counseling and Screening (12+)] [facility] Scheduled Test 2024-05-28 00:00:00 Tobacco Cessation Counseling and Screening (12+) [code = Tobacco Cessation Counseling and Screening (12+)] [facility] Scheduled Test 2024-05-28 00:00:00 Tobacco Cessation Counseling and Screening (12+) [code = Tobacco Cessation Counseling and Screening (12+)] [facility] Scheduled Test 2024-05-28 00:00:00 Tobacco Cessation Counseling and Screening (12+) [code = Tobacco Cessation Counseling and Screening (12+)] [facility] Scheduled Test 2024-05-28 00:00:00 Tobacco Cessation Counseling and Screening (12+) [code = Tobacco Cessation Counseling and Screening (12+)] [facility] Scheduled Test 2024-05-28 00:00:00 Tobacco Cessation Counseling and Screening (12+) [code = Tobacco Cessation Counseling and Screening (12+)] [facility] Scheduled Test 2024-05-28 00:00:00 Tobacco Cessation Counseling and Screening (12+) [code = Tobacco Cessation Counseling and Screening (12+)] [facility] Scheduled Test 2024-05-28 00:00:00 Tobacco Cessation Counseling and Screening (12+) [code = Tobacco Cessation Counseling and Screening (12+)] [facility] Scheduled Test 2024-05-28 00:00:00 Tobacco Cessation Counseling and Screening (12+) [code = Tobacco Cessation Counseling and Screening (12+)] [facility] Scheduled Test 2024-05-28 00:00:00 Tobacco Cessation Counseling and Screening (12+) [code = Tobacco Cessation Counseling and Screening (12+)] [facility] Scheduled Test 2024-05-28 00:00:00 Tobacco Cessation Counseling and Screening (12+) [code = Tobacco Cessation Counseling and Screening (12+)] [facility] Scheduled Test 2024-05-28 00:00:00 Tobacco Cessation Counseling and Screening (12+) [code = Tobacco Cessation Counseling and Screening (12+)] [facility] Scheduled Test 2024-05-28 00:00:00 Tobacco Cessation Counseling and Screening (12+) [code = Tobacco Cessation Counseling and Screening (12+)] [facility] Scheduled Test 2024-05-28 00:00:00 Tobacco Cessation Counseling and Screening (12+) [code = Tobacco Cessation Counseling and Screening (12+)] [facility] Scheduled Test 2024-05-28 00:00:00 Tobacco Cessation Counseling and Screening (12+) [code = Tobacco Cessation Counseling and Screening (12+)] [facility] Scheduled Test 2024-05-28 00:00:00 Tobacco Cessation Counseling and Screening (12+) [code = Tobacco Cessation Counseling and Screening (12+)] [facility] Scheduled Test 2024-05-28 00:00:00 Tobacco Cessation Counseling and Screening (12+) [code = Tobacco Cessation Counseling and Screening (12+)] [facility] Scheduled Test 2024-05-28 00:00:00 Tobacco Cessation Counseling and Screening (12+) [code = Tobacco Cessation Counseling and Screening (12+)] [facility] Scheduled Test 2024-05-28 00:00:00 Tobacco Cessation Counseling and Screening (12+) [code = Tobacco Cessation Counseling and Screening (12+)] [facility] Future Scheduled Test 2024-05-26 00:00:00 Tobacco Cessation Counseling and Screening (12+) [code = Tobacco Cessation Counseling and Screening (12+)] [facility] Future Scheduled Test 2024-05-26 00:00:00 Tobacco Cessation Counseling and Screening (12+) [code = Tobacco Cessation Counseling and Screening (12+)] [facility] Future Scheduled Test 2023-07-20 00:00:00 DEPRESSION SCREENING (12+) [code = DEPRESSION SCREENING (12+)] [facility] Future Scheduled Test 2023-07-20 00:00:00 DEPRESSION SCREENING (12+) [code = DEPRESSION SCREENING (12+)] [facility] Future Scheduled Test 2023-07-20 00:00:00 DEPRESSION SCREENING (12+) [code = DEPRESSION SCREENING (12+)] [facility] Future Scheduled Test 2023-07-20 00:00:00 DEPRESSION SCREENING (12+) [code = DEPRESSION SCREENING (12+)] [facility] Scheduled Test 2023-07-20 00:00:00 DEPRESSION SCREENING (12+) [code = DEPRESSION SCREENING (12+)] [facility] Future Scheduled Test 2023-07-20 00:00:00 DEPRESSION SCREENING (12+) [code = DEPRESSION SCREENING (12+)] [facility] Scheduled Test 2023-07-20 00:00:00 DEPRESSION SCREENING (12+) [code = DEPRESSION SCREENING (12+)] [facility] Scheduled Test 2023-07-20 00:00:00 DEPRESSION SCREENING (12+) [code = DEPRESSION SCREENING (12+)] [facility] Future Scheduled Test 2023-07-20 00:00:00 DEPRESSION SCREENING (12+) [code = DEPRESSION SCREENING (12+)] [facility] Scheduled Test 2023-07-20 00:00:00 DEPRESSION SCREENING (12+) [code = DEPRESSION SCREENING (12+)] [facility] Scheduled Test 2023-07-20 00:00:00 DEPRESSION SCREENING (12+) [code = DEPRESSION SCREENING (12+)] [facility] Future Scheduled Test 2023-07-20 00:00:00 DEPRESSION SCREENING (12+) [code = DEPRESSION SCREENING (12+)] [facility] Future Scheduled Test 2023-07-20 00:00:00 DEPRESSION SCREENING (12+) [code = DEPRESSION SCREENING (12+)] [facility] Future Scheduled Test 2023-07-20 00:00:00 DEPRESSION SCREENING (12+) [code = DEPRESSION SCREENING (12+)] [facility] Scheduled Test 2023-07-20 00:00:00 DEPRESSION SCREENING (12+) [code = DEPRESSION SCREENING (12+)] [facility] Scheduled Test 2023-07-20 00:00:00 DEPRESSION SCREENING (12+) [code = DEPRESSION SCREENING (12+)] [facility] Scheduled Test 2023-07-20 00:00:00 DEPRESSION SCREENING (12+) [code = DEPRESSION SCREENING (12+)] [facility] Scheduled Test 2023-07-20 00:00:00 DEPRESSION SCREENING (12+) [code = DEPRESSION SCREENING (12+)] [facility] Scheduled Test 2023-07-20 00:00:00 DEPRESSION SCREENING (12+) [code = DEPRESSION SCREENING (12+)] [facility] Scheduled Test 2023-07-20 00:00:00 DEPRESSION SCREENING (12+) [code = DEPRESSION SCREENING (12+)] [facility] Scheduled Test 2023-07-20 00:00:00 DEPRESSION SCREENING (12+) [code = DEPRESSION SCREENING (12+)] [facility] Scheduled Test 2023-07-20 00:00:00 DEPRESSION SCREENING (12+) [code = DEPRESSION SCREENING (12+)] [facility] Scheduled Test 2023-07-20 00:00:00 DEPRESSION SCREENING (12+) [code = DEPRESSION SCREENING (12+)] [facility] Scheduled Test 2023-07-20 00:00:00 DEPRESSION SCREENING (12+) [code = DEPRESSION SCREENING (12+)] [facility] Scheduled Test 2023-07-20 00:00:00 DEPRESSION SCREENING (12+) [code = DEPRESSION SCREENING (12+)] [facility] Scheduled Test 2023-07-20 00:00:00 DEPRESSION SCREENING (12+) [code = DEPRESSION SCREENING (12+)] [facility] Scheduled Test 2023-07-20 00:00:00 DEPRESSION SCREENING (12+) [code = DEPRESSION SCREENING (12+)] [facility] Scheduled Test 2023-03-20 00:00:00 INFLUENZA VACCINE (Season Ended) [code = INFLUENZA VACCINE (Season Ended)] [facility] Scheduled Test 2023-03-20 00:00:00 INFLUENZA VACCINE (Season Ended) [code = INFLUENZA VACCINE (Season Ended)] [facility] Scheduled Test 2023-03-20 00:00:00 INFLUENZA VACCINE (Season Ended) [code = INFLUENZA VACCINE (Season Ended)] [facility] Scheduled Test 2023-03-20 00:00:00 INFLUENZA VACCINE (Season Ended) [code = INFLUENZA VACCINE (Season Ended)] [facility] Scheduled Test 2023-03-20 00:00:00 INFLUENZA VACCINE (Season Ended) [code = INFLUENZA VACCINE (Season Ended)] [facility] Scheduled Test 2023-03-20 00:00:00 INFLUENZA VACCINE (Season Ended) [code = INFLUENZA VACCINE (Season Ended)] [facility] Scheduled Test 2023-03-20 00:00:00 Influenza Vaccine (Season Ended) [code = Influenza Vaccine (Season Ended)] [facility] Scheduled Test 2023-03-20 00:00:00 Influenza Vaccine (Season Ended) [code = Influenza Vaccine (Season Ended)] [facility] Scheduled Test 2023-03-20 00:00:00 Influenza Vaccine (#1) [code = Influenza Vaccine (#1)] [facility] Scheduled Test 2023-03-20 00:00:00 Influenza Vaccine (#1) [code = Influenza Vaccine (#1)] [facility] Scheduled Test 2023-03-20 00:00:00 Influenza Vaccine (#1) [code = Influenza Vaccine (#1)] [facility] Scheduled Test 2023-03-20 00:00:00 Influenza Vaccine (#1) [code = Influenza Vaccine (#1)] [facility] Scheduled Test 2023-03-20 00:00:00 COVID-19 VACCINE ( season) [code = COVID-19 VACCINE ( season)] [facility] Scheduled Test 2023-03-20 00:00:00 Influenza Vaccine (#1) [code = Influenza Vaccine (#1)] [facility] Scheduled Test 2023-03-20 00:00:00 COVID-19 VACCINE ( season) [code = COVID-19 VACCINE ()] [facility] Scheduled Test 2023-03-20 00:00:00 Influenza Vaccine (#1) [code = Influenza Vaccine (#1)] [facility] Scheduled Test 2023-03-20 00:00:00 COVID-19 VACCINE ( season) [code = COVID-19 VACCINE ( season)] [facility] Scheduled Test 2023-03-20 00:00:00 Influenza Vaccine (#1) [code = Influenza Vaccine (#1)] [facility] Scheduled Test 2023-03-20 00:00:00 COVID-19 VACCINE ( season) [code = COVID-19 VACCINE ( season)] [facility] Scheduled Test 2023-03-20 00:00:00 Influenza Vaccine (#1) [code = Influenza Vaccine (#1)] [facility] Scheduled Test 2023-03-20 00:00:00 Influenza Vaccine (#1) [code = Influenza Vaccine (#1)] [facility] Scheduled Test 2023-03-20 00:00:00 COVID-19 VACCINE ( season) [code = COVID-19 VACCINE ( season)] [facility] Scheduled Test 2023-03-20 00:00:00 Influenza Vaccine (#1) [code = Influenza Vaccine (#1)] [facility] Scheduled Test 2023-03-20 00:00:00 COVID-19 VACCINE ( season) [code = COVID-19 VACCINE ( season)] [facility] Scheduled Test 2023-03-20 00:00:00 Influenza Vaccine (#1) [code = Influenza Vaccine (#1)] [facility] Scheduled Test 2023-03-20 00:00:00 COVID-19 VACCINE ( season) [code = COVID-19 VACCINE ()] [facility]uled Test 2023-03-20 00:00:00 Influenza Vaccine (#1) [code = Influenza Vaccine (#1)] [facility] Scheduled Test 2023-03-20 00:00:00 COVID-19 VACCINE ( season) [code = COVID-19 VACCINE ()] [facility]uled Test 2023-03-20 00:00:00 Influenza Vaccine (#1) [code = Influenza Vaccine (#1)] [facility] Scheduled Test 2023-03-20 00:00:00 COVID-19 VACCINE ( season) [code = COVID-19 VACCINE ()] [facility]uled Test 2023-03-20 00:00:00 Influenza Vaccine (#1) [code = Influenza Vaccine (#1)] [facility] Scheduled Test 2023-03-20 00:00:00 COVID-19 VACCINE ( season) [code = COVID-19 VACCINE ( season)] [facility] Scheduled Test 2023-03-20 00:00:00 Influenza Vaccine (#1) [code = Influenza Vaccine (#1)] [facility] Scheduled Test 2023-03-20 00:00:00 COVID-19 VACCINE ( season) [code = COVID-19 VACCINE ()] [facility] Scheduled Test 2023-03-20 00:00:00 Influenza Vaccine (#1) [code = Influenza Vaccine (#1)] [facility]uled Test 2023-03-20 00:00:00 Influenza Vaccine (#1) [code = Influenza Vaccine (#1)] [facility] Scheduled Test 2023-03-20 00:00:00 COVID-19 VACCINE ( season) [code = COVID-19 VACCINE ()] [facility] Test 2023-03-20 00:00:00 Influenza Vaccine (#1) [code = Influenza Vaccine (#1)] [facility] Test 2023-03-20 00:00:00 COVID-19 VACCINE () [code = COVID-19 VACCINE ()] [facility] Sched[facility] Test 2023-03-20 00:00:00 Influenza Vaccine (#1) [code = Influenza Vaccine (#1)] [facility] 2023-03-20 00:00:00 COVID-19 VACCINE ( season) [code = COVID-19 VACCINE ()] [facility] 2023-03-20 00:00:00 Influenza Vaccine (#1) [code = Influenza Vaccine (#1)] [facility] 2023-03-20 00:00:00 COVID-19 VACCINE ( season) [code = COVID-19 VACCINE ( season)] [facility] 2023-03-20 00:00:00 Influenza Vaccine (#1) [code = Influenza Vaccine (#1)] [facility] 2023-03-20 00:00:00 COVID-19 VACCINE ( season) [code = COVID-19 VACCINE ()] [facility] 2023-03-20 00:00:00 Influenza Vaccine (#1) [code = Influenza Vaccine (#1)] [facility] 2023-03-20 00:00:00 COVID-19 VACCINE ( season) [code = COVID-19 VACCINE ( season)] [facility] 2023-03-20 00:00:00 Influenza Vaccine (#1) [code = Influenza Vaccine (#1)] [facility] 2023-03-20 00:00:00 Influenza Vaccine (#1) [code = Influenza Vaccine (#1)] [facility] 2023-03-20 00:00:00 COVID-19 VACCINE ( season) [code = COVID-19 VACCINE ()] [facility] 2023-03-20 00:00:00 Influenza Vaccine (#1) [code = Influenza Vaccine (#1)] [facility] 2023-03-20 00:00:00 COVID-19 VACCINE ( season) [code = COVID-19 VACCINE ()] [facility] 2023-03-20 00:00:00 Influenza Vaccine (#1) [code = Influenza Vaccine (#1)] [facility] 2023-03-20 00:00:00 COVID-19 VACCINE ( season) [code = COVID-19 VACCINE ( season)] [facility] 2023-03-20 00:00:00 Influenza Vaccine (#1) [code = Influenza Vaccine (#1)] [facility] 2023-03-20 00:00:00 COVID-19 VACCINE ( season) [code = COVID-19 VACCINE ( season)] [facility] 2023-03-20 00:00:00 Influenza Vaccine (#1) [code = Influenza Vaccine (#1)] [facility] 2023-03-20 00:00:00 Influenza Vaccine (#1) [code = Influenza Vaccine (#1)] [facility] 2023-03-20 00:00:00 COVID-19 VACCINE ( season) [code = COVID-19 VACCINE ( season)] [facility] 2023-03-20 00:00:00 Influenza Vaccine (#1) [code = Influenza Vaccine (#1)] [facility] 2023-03-20 00:00:00 COVID-19 VACCINE ( season) [code = COVID-19 VACCINE ()] [facility] 2023-03-20 00:00:00 Influenza Vaccine (#1) [code = Influenza Vaccine (#1)] [facility] 2023-03-20 00:00:00 COVID-19 VACCINE () [code = COVID-19 VACCINE ()] [facility] 2023-03-20 00:00:00 Influenza Vaccine (#1) [code = Influenza Vaccine (#1)] [facility] 2023-03-20 00:00:00 COVID-19 VACCINE ( season) [code = COVID-19 VACCINE ()] [facility] 2023-03-20 00:00:00 Influenza Vaccine (#1) [code = Influenza Vaccine (#1)] [facility] 2023-03-20 00:00:00 COVID-19 VACCINE ( season) [code = COVID-19 VACCINE ()] [facility] 2023-03-20 00:00:00 Influenza Vaccine (#1) [code = Influenza Vaccine (#1)] [facility] 2023-03-20 00:00:00 COVID-19 VACCINE (4 - 2023-24 season) [code = COVID-19 VACCINE ( season)] [facility] 2023-03-20 00:00:00 Influenza Vaccine (#1) [code = Influenza Vaccine (#1)] [facility] 2023-03-20 00:00:00 Influenza Vaccine (#1) [code = Influenza Vaccine (#1)] [facility] 2023-03-20 00:00:00 COVID-19 VACCINE ( season) [code = COVID-19 VACCINE ( season)] [facility] 2023-03-20 00:00:00 Influenza Vaccine (#1) [code = Influenza Vaccine (#1)] [facility] 2023-03-20 00:00:00 COVID-19 VACCINE ( season) [code = COVID-19 VACCINE ()] [facility] 2023-03-20 00:00:00 Influenza Vaccine (#1) [code = Influenza Vaccine (#1)] [facility] 2023-03-20 00:00:00 Influenza Vaccine (#1) [code = Influenza Vaccine (#1)] [facility] 2023-03-20 00:00:00 Influenza Vaccine (#1) [code = Influenza Vaccine (#1)] [facility] 2023-03-20 00:00:00 Influenza Vaccine (#1) [code = Influenza Vaccine (#1)] [facility] 2023-03-20 00:00:00 Influenza Vaccine (#1) [code = Influenza Vaccine (#1)] [facility] 2023-03-20 00:00:00 Influenza Vaccine (#1) [code = Influenza Vaccine (#1)] [facility] 2023-03-20 00:00:00 Influenza Vaccine (#1) [code = Influenza Vaccine (#1)] [facility] 2023-03-20 00:00:00 Influenza Vaccine (#1) [code = Influenza Vaccine (#1)] [facility] 2023-03-20 00:00:00 Influenza Vaccine (#1) [code = Influenza Vaccine (#1)] [facility] 2023-03-20 00:00:00 Influenza Vaccine (#1) [code = Influenza Vaccine (#1)] [facility] 2023-03-20 00:00:00 Influenza Vaccine (#1) [code = Influenza Vaccine (#1)] [facility] 2023-03-20 00:00:00 COVID-19 VACCINE ( season) [code = COVID-19 VACCINE ( season)] [facility] 2022-07-20 00:00:00 DEPRESSION SCREENING (12+) [code = DEPRESSION SCREENING (12+)] [facility] 2022-07-20 00:00:00 DEPRESSION SCREENING (12+) [code = DEPRESSION SCREENING (12+)] [facility] 2022-07-20 00:00:00 DEPRESSION SCREENING (12+) [code = DEPRESSION SCREENING (12+)] [facility] 2022-07-20 00:00:00 DEPRESSION SCREENING (12+) [code = DEPRESSION SCREENING (12+)] [facility] 2022-07-20 00:00:00 DEPRESSION SCREENING (12+) [code = DEPRESSION SCREENING (12+)] [facility] 2022-07-20 00:00:00 DEPRESSION SCREENING (12+) [code = DEPRESSION SCREENING (12+)] [facility] 2022-07-20 00:00:00 DEPRESSION SCREENING (12+) [code = DEPRESSION SCREENING (12+)] [facility] 2022-07-20 00:00:00 DEPRESSION SCREENING (12+) [code = DEPRESSION SCREENING (12+)] [facility] 2022-07-20 00:00:00 DEPRESSION SCREENING (12+) [code = DEPRESSION SCREENING (12+)] [facility] 2022-07-20 00:00:00 DEPRESSION SCREENING (12+) [code = DEPRESSION SCREENING (12+)] [facility] 2022-07-20 00:00:00 DEPRESSION SCREENING (12+) [code = DEPRESSION SCREENING (12+)] [facility] 2022-07-20 00:00:00 DEPRESSION SCREENING (12+) [code = DEPRESSION SCREENING (12+)] [facility] 2022-07-20 00:00:00 DEPRESSION SCREENING (12+) [code = DEPRESSION SCREENING (12+)] [facility] 2022-07-20 00:00:00 DEPRESSION SCREENING (12+) [code = DEPRESSION SCREENING (12+)] [facility] 2022-07-20 00:00:00 DEPRESSION SCREENING (12+) [code = DEPRESSION SCREENING (12+)] [facility] 2022-07-20 00:00:00 DEPRESSION SCREENING (12+) [code = DEPRESSION SCREENING (12+)] [facility] 2022-07-20 00:00:00 DEPRESSION SCREENING (12+) [code = DEPRESSION SCREENING (12+)] [facility] 2022-07-20 00:00:00 DEPRESSION SCREENING (12+) [code = DEPRESSION SCREENING (12+)] [facility] 2022-07-20 00:00:00 DEPRESSION SCREENING (12+) [code = DEPRESSION SCREENING (12+)] [facility] 2022-07-20 00:00:00 DEPRESSION SCREENING (12+) [code = DEPRESSION SCREENING (12+)] [facility] 2022-07-20 00:00:00 DEPRESSION SCREENING (12+) [code = DEPRESSION SCREENING (12+)] [facility] 2022-07-20 00:00:00 DEPRESSION SCREENING (12+) [code = DEPRESSION SCREENING (12+)] [facility] 2022-07-20 00:00:00 DEPRESSION SCREENING (12+) [code = DEPRESSION SCREENING (12+)] [facility] 2022-07-20 00:00:00 DEPRESSION SCREENING (12+) [code = DEPRESSION SCREENING (12+)] [facility] 2022-07-20 00:00:00 DEPRESSION SCREENING (12+) [code = DEPRESSION SCREENING (12+)] [facility] 2022-07-20 00:00:00 DEPRESSION SCREENING (12+) [code = DEPRESSION SCREENING (12+)] [facility] 2022-07-20 00:00:00 DEPRESSION SCREENING (12+) [code = DEPRESSION SCREENING (12+)] [facility] 2022-07-20 00:00:00 DEPRESSION SCREENING (12+) [code = DEPRESSION SCREENING (12+)] [facility] 2022-07-20 00:00:00 DEPRESSION SCREENING (12+) [code = DEPRESSION SCREENING (12+)] [facility] 2022-07-20 00:00:00 DEPRESSION SCREENING (12+) [code = DEPRESSION SCREENING (12+)] [facility] 2022-07-20 00:00:00 DEPRESSION SCREENING (12+) [code = DEPRESSION SCREENING (12+)] [facility] 2022-07-20 00:00:00 DEPRESSION SCREENING (12+) [code = DEPRESSION SCREENING (12+)] [facility] 2022-07-20 00:00:00 DEPRESSION SCREENING (12+) [code = DEPRESSION SCREENING (12+)] [facility] 2022-06-21 00:00:00 COVID-19 VACCINE (4 - Booster for Pfizer series) [code = COVID-19 VACCINE (4 - Booster for Pfizer series)] [facility] 2022-06-21 00:00:00 COVID-19 VACCINE (4 - Booster for Pfizer series) [code = COVID-19 VACCINE (4 - Booster for Pfizer series)] [facility] 2022-06-21 00:00:00 COVID-19 VACCINE (4 - Booster for Pfizer series) [code = COVID-19 VACCINE (4 - Booster for Pfizer series)] [facility] 2022-06-21 00:00:00 COVID-19 VACCINE (4 - Booster for Pfizer series) [code = COVID-19 VACCINE (4 - Booster for Pfizer series)] [facility] 2022-04-16 00:00:00 COVID-19 VACCINE (4 - Booster for Pfizer series) [code = COVID-19 VACCINE (4 - Booster for Pfizer series)] [facility] 2022-04-16 00:00:00 COVID-19 VACCINE (4 - Booster for Pfizer series) [code = COVID-19 VACCINE (4 - Booster for Pfizer series)] [facility] Test 2022-04-16 00:00:00 COVID-19 VACCINE (4 - Booster for Pfizer series) [code = COVID-19 VACCINE (4 - Booster for Pfizer series)] [facility] Test 2022-04-16 00:00:00 COVID-19 VACCINE (4 - Booster for Pfizer series) [code = COVID-19 VACCINE (4 - Booster for Pfizer series)] [facility] 2022-04-16 00:00:00 COVID-19 VACCINE (4 - Booster for Pfizer series) [code = COVID-19 VACCINE (4 - Booster for Pfizer series)] [facility] Test 2022-04-16 00:00:00 COVID-19 VACCINE (4 - Booster for Pfizer series) [code = COVID-19 VACCINE (4 - Booster for Pfizer series)] [facility] Test 2022-04-16 00:00:00 COVID-19 VACCINE (4 - Booster for Pfizer series) [code = COVID-19 VACCINE (4 - Booster for Pfizer series)] [facility] Test 2022-04-16 00:00:00 COVID-19 VACCINE (4 - Booster for Pfizer series) [code = COVID-19 VACCINE (4 - Booster for Pfizer series)] [facility] Test 2022-04-16 00:00:00 COVID-19 VACCINE (4 - Booster for Pfizer series) [code = COVID-19 VACCINE (4 - Booster for Pfizer series)] [facility] 2022-04-16 00:00:00 COVID-19 VACCINE (4 - Booster for Pfizer series) [code = COVID-19 VACCINE (4 - Booster for Pfizer series)] [facility] 2022-04-16 00:00:00 COVID-19 VACCINE (4 - Booster for Pfizer series) [code = COVID-19 VACCINE (4 - Booster for Pfizer series)] [facility] 2022-04-16 00:00:00 COVID-19 VACCINE (4 - Booster for Pfizer series) [code = COVID-19 VACCINE (4 - Booster for Pfizer series)] [facility] Test 2022-04-16 00:00:00 COVID-19 VACCINE (4 - Booster for Pfizer series) [code = COVID-19 VACCINE (4 - Booster for Pfizer series)] [facility] 2022-04-16 00:00:00 COVID-19 VACCINE (4 - Booster for Pfizer series) [code = COVID-19 VACCINE (4 - Booster for Pfizer series)] [facility] 2022-04-16 00:00:00 COVID-19 VACCINE (4 - Booster for Pfizer series) [code = COVID-19 VACCINE (4 - Booster for Pfizer series)] [facility] Test 2022-04-16 00:00:00 COVID-19 VACCINE (4 - Booster for Pfizer series) [code = COVID-19 VACCINE (4 - Booster for Pfizer series)] [facility] Test 2022-04-16 00:00:00 COVID-19 VACCINE (4 - Booster for Pfizer series) [code = COVID-19 VACCINE (4 - Booster for Pfizer series)] [facility] 2022-04-16 00:00:00 COVID-19 VACCINE (4 - Booster for Pfizer series) [code = COVID-19 VACCINE (4 - Booster for Pfizer series)] [facility] Test 2022-04-16 00:00:00 COVID-19 VACCINE (4 - Booster for Pfizer series) [code = COVID-19 VACCINE (4 - Booster for Pfizer series)] [facility] 2022-04-16 00:00:00 COVID-19 VACCINE (4 - Booster for Pfizer series) [code = COVID-19 VACCINE (4 - Booster for Pfizer series)] [facility] 2022-04-16 00:00:00 COVID-19 VACCINE (4 - Pfizer series) [code = COVID-19 VACCINE (4 - Pfizer series)] [facility] 2022-04-16 00:00:00 COVID-19 VACCINE (4 - Pfizer series) [code = COVID-19 VACCINE (4 - Pfizer series)] [facility] 2022-04-16 00:00:00 COVID-19 VACCINE (4 - Pfizer series) [code = COVID-19 VACCINE (4 - Pfizer series)] [facility] 2022-04-16 00:00:00 COVID-19 VACCINE (4 - Pfizer series) [code = COVID-19 VACCINE (4 - Pfizer series)] [facility] 2022-04-16 00:00:00 COVID-19 VACCINE (4 - Booster for Pfizer series) [code = COVID-19 VACCINE (4 - Booster for Pfizer series)] [facility] 2022-04-16 00:00:00 COVID-19 VACCINE (4 - Pfizer series) [code = COVID-19 VACCINE (4 - Pfizer series)] [facility] 2022-03-20 00:00:00 INFLUENZA VACCINE (#1) [code = INFLUENZA VACCINE (#1)] [facility] 2022-03-20 00:00:00 INFLUENZA VACCINE (#1) [code = INFLUENZA VACCINE (#1)] [facility] 2022-03-20 00:00:00 INFLUENZA VACCINE (#1) [code = INFLUENZA VACCINE (#1)] [facility] 2022-03-20 00:00:00 INFLUENZA VACCINE (#1) [code = INFLUENZA VACCINE (#1)] [facility] 2022-01-14 00:00:00 SHINGLES VACCINES (1 of 2) [code = SHINGLES VACCINES (1 of 2)] [facility] 2022-01-14 00:00:00 SHINGLES VACCINES (1 of 2) [code = SHINGLES VACCINES (1 of 2)] [facility] 2022-01-14 00:00:00 SHINGLES VACCINES (1 of 2) [code = SHINGLES VACCINES (1 of 2)] [facility] 2022-01-14 00:00:00 SHINGLES VACCINES (1 of 2) [code = SHINGLES VACCINES (1 of 2)] [facility] 2022-01-14 00:00:00 SHINGLES VACCINES (1 of 2) [code = SHINGLES VACCINES (1 of 2)] [facility] 2022-01-14 00:00:00 SHINGLES VACCINES (1 of 2) [code = SHINGLES VACCINES (1 of 2)] [facility] 2022-01-14 00:00:00 SHINGLES VACCINES (1 of 2) [code = SHINGLES VACCINES (1 of 2)] [facility] 2022-01-14 00:00:00 SHINGLES VACCINES (1 of 2) [code = SHINGLES VACCINES (1 of 2)] [facility] 2022-01-14 00:00:00 SHINGLES VACCINES (1 of 2) [code = SHINGLES VACCINES (1 of 2)] [facility] 2022-01-14 00:00:00 SHINGLES VACCINES (1 of 2) [code = SHINGLES VACCINES (1 of 2)] [facility] 2022-01-14 00:00:00 SHINGLES VACCINES (1 of 2) [code = SHINGLES VACCINES (1 of 2)] [facility] 2022-01-14 00:00:00 SHINGLES VACCINES (1 of 2) [code = SHINGLES VACCINES (1 of 2)] [facility] 2022-01-14 00:00:00 SHINGLES VACCINES (1 of 2) [code = SHINGLES VACCINES (1 of 2)] [facility] 2022-01-14 00:00:00 SHINGLES VACCINES (1 of 2) [code = SHINGLES VACCINES (1 of 2)] [facility] 2022-01-14 00:00:00 SHINGLES VACCINES (1 of 2) [code = SHINGLES VACCINES (1 of 2)] [facility] 2022-01-14 00:00:00 Screening for malignant neoplasm of lung (procedure) [code = [id number]] [facility] 2022-01-14 00:00:00 SHINGLES VACCINES (1 of 2) [code = SHINGLES VACCINES (1 of 2)] [facility] 2022-01-14 00:00:00 Screening for malignant neoplasm of lung (procedure) [code = [id number]] [facility] 2022-01-14 00:00:00 SHINGLES VACCINES (1 of 2) [code = SHINGLES VACCINES (1 of 2)] [facility] 2022-01-14 00:00:00 Screening for malignant neoplasm of lung (procedure) [code = [id number]] [facility] 2022-01-14 00:00:00 SHINGLES VACCINES (1 of 2) [code = SHINGLES VACCINES (1 of 2)] [facility] 2022-01-14 00:00:00 Screening for malignant neoplasm of lung (procedure) [code = [id number]] [facility] 2022-01-14 00:00:00 SHINGLES VACCINES (1 of 2) [code = SHINGLES VACCINES (1 of 2)] [facility] 2022-01-14 00:00:00 Screening for malignant neoplasm of lung (procedure) [code = [id number]] [facility] 2022-01-14 00:00:00 SHINGLES VACCINES (1 of 2) [code = SHINGLES VACCINES (1 of 2)] [facility] 2022-01-14 00:00:00 Screening for malignant neoplasm of lung (procedure) [code = [id number]] [facility] 2022-01-14 00:00:00 SHINGLES VACCINES (1 of 2) [code = SHINGLES VACCINES (1 of 2)] [facility] 2022-01-14 00:00:00 Screening for malignant neoplasm of lung (procedure) [code = [id number]] [facility] 2022-01-14 00:00:00 SHINGLES VACCINES (1 of 2) [code = SHINGLES VACCINES (1 of 2)] [facility] 2022-01-14 00:00:00 Screening for malignant neoplasm of lung (procedure) [code = [id number]] [facility] 2022-01-14 00:00:00 SHINGLES VACCINES (1 of 2) [code = SHINGLES VACCINES (1 of 2)] [facility] 2022-01-14 00:00:00 Screening for malignant neoplasm of lung (procedure) [code = 731440322] [facility] 2022-01-14 00:00:00 SHINGLES VACCINES (1 of 2) [code = SHINGLES VACCINES (1 of 2)] [facility] 2022-01-14 00:00:00 Screening for malignant neoplasm of lung (procedure) [code = 693438262] [facility] 2022-01-14 00:00:00 SHINGLES VACCINES (1 of 2) [code = SHINGLES VACCINES (1 of 2)] [facility] 2022-01-14 00:00:00 Screening for malignant neoplasm of lung (procedure) [code = 603475078] [facility] 2022-01-14 00:00:00 SHINGLES VACCINES (1 of 2) [code = SHINGLES VACCINES (1 of 2)] [facility] 2022-01-14 00:00:00 Screening for malignant neoplasm of lung (procedure) [code = 743932567] [facility] 2022-01-14 00:00:00 SHINGLES VACCINES (1 of 2) [code = SHINGLES VACCINES (1 of 2)] [facility] 2022-01-14 00:00:00 Screening for malignant neoplasm of lung (procedure) [code = [id number]] [facility] 2022-01-14 00:00:00 SHINGLES VACCINES (1 of 2) [code = SHINGLES VACCINES (1 of 2)] [facility] 2022-01-14 00:00:00 Screening for malignant neoplasm of lung (procedure) [code = 740774322] [facility] 2022-01-14 00:00:00 SHINGLES VACCINES (1 of 2) [code = SHINGLES VACCINES (1 of 2)] [facility] 2022-01-14 00:00:00 Screening for malignant neoplasm of lung (procedure) [code = 776667564] [facility] 2022-01-14 00:00:00 SHINGLES VACCINES (1 of 2) [code = SHINGLES VACCINES (1 of 2)] [facility] Test 2022-01-14 00:00:00 Screening for malignant neoplasm of lung (procedure) [code = 296860849] [facility] 2022-01-14 00:00:00 SHINGLES VACCINES (1 of 2) [code = SHINGLES VACCINES (1 of 2)] [facility] Test 2022-01-14 00:00:00 Screening for malignant neoplasm of lung (procedure) [code = 093820221] [facility] 2022-01-14 00:00:00 SHINGLES VACCINES (1 of 2) [code = SHINGLES VACCINES (1 of 2)] [facility] 2022-01-14 00:00:00 Screening for malignant neoplasm of lung (procedure) [code = 741433616] [facility] Test 2022-01-14 00:00:00 SHINGLES VACCINES (1 of 2) [code = SHINGLES VACCINES (1 of 2)] [facility] Test 2022-01-14 00:00:00 Screening for malignant neoplasm of lung (procedure) [code = 456447771] [facility] 2022-01-14 00:00:00 Screening for malignant neoplasm of lung (procedure) [code = 970508734] [facility] 2022-01-14 00:00:00 SHINGLES VACCINES (1 of 2) [code = SHINGLES VACCINES (1 of 2)] [facility] Test 2022-01-14 00:00:00 SHINGLES VACCINES (1 of 2) [code = SHINGLES VACCINES (1 of 2)] [facility] 2022-01-14 00:00:00 Screening for malignant neoplasm of lung (procedure) [code = 782696145] [facility] 2022-01-14 00:00:00 SHINGLES VACCINES (1 of 2) [code = SHINGLES VACCINES (1 of 2)] [facility] 2022-01-14 00:00:00 Screening for malignant neoplasm of lung (procedure) [code = 613824705] [facility] 2022-01-14 00:00:00 SHINGLES VACCINES (1 of 2) [code = SHINGLES VACCINES (1 of 2)] [facility] Test 2022-01-14 00:00:00 Screening for malignant neoplasm of lung (procedure) [code = [id number]] [facility] 2022-01-14 00:00:00 SHINGLES VACCINES (1 of 2) [code = SHINGLES VACCINES (1 of 2)] [facility] 2022-01-14 00:00:00 Screening for malignant neoplasm of lung (procedure) [code = 524128947] [facility] 2022-01-14 00:00:00 Screening for malignant neoplasm of lung (procedure) [code = 121298129] [facility] 2022-01-14 00:00:00 SHINGLES VACCINES (1 of 2) [code = SHINGLES VACCINES (1 of 2)] [facility] 2022-01-14 00:00:00 SHINGLES VACCINES (1 of 2) [code = SHINGLES VACCINES (1 of 2)] [facility] 2022-01-14 00:00:00 Screening for malignant neoplasm of lung (procedure) [code = [id number]] [facility] Sched[facility] Test 2022-01-14 00:00:00 SHINGLES VACCINES (1 of 2) [code = SHINGLES VACCINES (1 of 2)] [facility] Test 2022-01-14 00:00:00 Screening for malignant neoplasm of lung (procedure) [code = [id number]] [facility] Sched[facility] Test 2022-01-14 00:00:00 SHINGLES VACCINES (1 of 2) [code = SHINGLES VACCINES (1 of 2)] [facility] Test 2022-01-14 00:00:00 Screening for malignant neoplasm of lung (procedure) [code = [id number]] [facility] Sched[facility] Test 2022-01-14 00:00:00 SHINGLES VACCINES (1 of 2) [code = SHINGLES VACCINES (1 of 2)] [facility] Sched[facility] Test 2022-01-14 00:00:00 Screening for malignant neoplasm of lung (procedure) [code = [id number]] [facility] Sched[facility] Test 2022-01-14 00:00:00 SHINGLES VACCINES (1 of 2) [code = SHINGLES VACCINES (1 of 2)] [facility] Sched[facility] Test 2022-01-14 00:00:00 Screening for malignant neoplasm of lung (procedure) [code = [id number]] [facility] Sched[facility] Test 2022-01-14 00:00:00 SHINGLES VACCINES (1 of 2) [code = SHINGLES VACCINES (1 of 2)] [facility] Sched[facility] Test 2022-01-14 00:00:00 Screening for malignant neoplasm of lung (procedure) [code = [id number]] [facility] Sched[facility] Test 2022-01-14 00:00:00 Screening for malignant neoplasm of lung (procedure) [code = 161973687] [facility] Test 2022-01-14 00:00:00 SHINGLES VACCINES (1 of 2) [code = SHINGLES VACCINES (1 of 2)] [facility] Test 2022-01-14 00:00:00 SHINGLES VACCINES (1 of 2) [code = SHINGLES VACCINES (1 of 2)] [facility] Sched[facility] Test 2022-01-14 00:00:00 Screening for malignant neoplasm of lung (procedure) [code = [id number]] [facility] Sched[facility] Test 2022-01-14 00:00:00 SHINGLES VACCINES (1 of 2) [code = SHINGLES VACCINES (1 of 2)] [facility] Scheduled Test 2022-01-14 00:00:00 Screening for malignant neoplasm of lung (procedure) [code = [id number]] [facility] Scheduled Test 2022-01-14 00:00:00 SHINGLES VACCINES (1 of 2) [code = SHINGLES VACCINES (1 of 2)] [facility] Scheduled Test 2022-01-14 00:00:00 Screening for malignant neoplasm of lung (procedure) [code = [id number]] [facility] Sched[facility] Test 2022-01-14 00:00:00 SHINGLES VACCINES (1 of 2) [code = SHINGLES VACCINES (1 of 2)] [facility] Scheduled Test 2022-01-14 00:00:00 Screening for malignant neoplasm of lung (procedure) [code = [id number]] [facility] Sched[facility] Test 2022-01-14 00:00:00 SHINGLES VACCINES (1 of 2) [code = SHINGLES VACCINES (1 of 2)] [facility] Scheduled Test 2022-01-14 00:00:00 SHINGLES VACCINES (1 of 2) [code = SHINGLES VACCINES (1 of 2)] [facility] Test 2022-01-14 00:00:00 SHINGLES VACCINES (1 of 2) [code = SHINGLES VACCINES (1 of 2)] [facility] Sched[facility] Test 2022-01-14 00:00:00 Screening for malignant neoplasm of lung (procedure) [code = [id number]] [facility] Test 2022-01-14 00:00:00 SHINGLES VACCINES (1 of 2) [code = SHINGLES VACCINES (1 of 2)] [facility] Sched[facility] Test 2022-01-14 00:00:00 Screening for malignant neoplasm of lung (procedure) [code = 779173361] [facility] Sched[facility] Test 2022-01-14 00:00:00 SHINGLES VACCINES (1 of 2) [code = SHINGLES VACCINES (1 of 2)] [facility] Scheduled Test 2022-01-14 00:00:00 Screening for malignant neoplasm of lung (procedure) [code = [id number]] [facility] Sched[facility] Test 2022-01-14 00:00:00 SHINGLES VACCINES (1 of 2) [code = SHINGLES VACCINES (1 of 2)] [facility] Scheduled Test 2022-01-14 00:00:00 Screening for malignant neoplasm of lung (procedure) [code = [id number]] [facility] Sched[facility] Test 2022-01-14 00:00:00 SHINGLES VACCINES (1 of 2) [code = SHINGLES VACCINES (1 of 2)] [facility] Sched[facility] Test 2022-01-14 00:00:00 Screening for malignant neoplasm of lung (procedure) [code = [id number]] [facility] Test 2022-01-14 00:00:00 SHINGLES VACCINES (1 of 2) [code = SHINGLES VACCINES (1 of 2)] [facility] Sched[facility] Test 2022-01-14 00:00:00 Screening for malignant neoplasm of lung (procedure) [code = 590963243] [facility] Sched[facility] Test 2022-01-14 00:00:00 SHINGLES VACCINES (1 of 2) [code = SHINGLES VACCINES (1 of 2)] [facility] Test 2022-01-14 00:00:00 Screening for malignant neoplasm of lung (procedure) [code = [id number]] [facility] Sched[facility] Test 2022-01-14 00:00:00 SHINGLES VACCINES (1 of 2) [code = SHINGLES VACCINES (1 of 2)] [facility] Scheduled Test 2013-12-15 00:00:00 PNEUMOCOCCAL VACCINE 0-64 YRS (2 - PCV) [code = PNEUMOCOCCAL VACCINE 0-64 YRS (2 - PCV)] [facility] Scheduled Test 2013-12-15 00:00:00 PNEUMOCOCCAL VACCINE 0-64 YRS (2 - PCV) [code = PNEUMOCOCCAL VACCINE 0-64 YRS (2 - PCV)] [facility] Scheduled Test 2013-12-15 00:00:00 PNEUMOCOCCAL VACCINE 0-64 YRS (2 - PCV) [code = PNEUMOCOCCAL VACCINE 0-64 YRS (2 - PCV)] [facility] Scheduled Test 2013-12-15 00:00:00 PNEUMOCOCCAL VACCINE 0-64 YRS (2 - PCV) [code = PNEUMOCOCCAL VACCINE 0-64 YRS (2 - PCV)] [facility] Scheduled Test 2013-12-15 00:00:00 Pneumococcal Vaccine: 0-64 Years (2 - PCV) [code = Pneumococcal Vaccine: 0-64 Years (2 - PCV)] [facility] Scheduled Test 2013-12-15 00:00:00 Pneumococcal Vaccine: 0-64 Years (2 - PCV) [code = Pneumococcal Vaccine: 0-64 Years (2 - PCV)] [facility] Scheduled Test 2013-12-15 00:00:00 Pneumococcal Vaccine: 0-64 Years (2 - PCV) [code = Pneumococcal Vaccine: 0-64 Years (2 - PCV)] [facility] Scheduled Test 2013-12-15 00:00:00 Pneumococcal Vaccine: 0-64 Years (2 - PCV) [code = Pneumococcal Vaccine: 0-64 Years (2 - PCV)] [facility] Scheduled Test 2013-12-15 00:00:00 Pneumococcal Vaccine: 0-64 Years (2 - PCV) [code = Pneumococcal Vaccine: 0-64 Years (2 - PCV)] [facility] Scheduled Test 2013-12-15 00:00:00 Pneumococcal Vaccine: 0-64 Years (2 - PCV) [code = Pneumococcal Vaccine: 0-64 Years (2 - PCV)] [facility] Scheduled Test 2013-12-15 00:00:00 Pneumococcal Vaccine: 0-64 Years (2 - PCV) [code = Pneumococcal Vaccine: 0-64 Years (2 - PCV)] [facility] Scheduled Test 2013-12-15 00:00:00 Pneumococcal Vaccine: 0-64 Years (2 - PCV) [code = Pneumococcal Vaccine: 0-64 Years (2 - PCV)] [facility] Scheduled Test 2013-12-15 00:00:00 Pneumococcal Vaccine: 0-64 Years (2 - PCV) [code = Pneumococcal Vaccine: 0-64 Years (2 - PCV)] [facility] Scheduled Test 2013-12-15 00:00:00 Pneumococcal Vaccine: 0-64 Years (2 - PCV) [code = Pneumococcal Vaccine: 0-64 Years (2 - PCV)] [facility] Scheduled Test 2013-12-15 00:00:00 Pneumococcal Vaccine: 0-64 Years (2 - PCV) [code = Pneumococcal Vaccine: 0-64 Years (2 - PCV)] [facility] Scheduled Test 2013-12-15 00:00:00 Pneumococcal Vaccine: 0-64 Years (2 - PCV) [code = Pneumococcal Vaccine: 0-64 Years (2 - PCV)] [facility] Scheduled Test 2013-12-15 00:00:00 Pneumococcal Vaccine: 0-64 Years (2 - PCV) [code = Pneumococcal Vaccine: 0-64 Years (2 - PCV)] [facility] Scheduled Test 2013-12-15 00:00:00 Pneumococcal Vaccine: 0-64 Years (2 - PCV) [code = Pneumococcal Vaccine: 0-64 Years (2 - PCV)] [facility] Scheduled Test 2013-12-15 00:00:00 Pneumococcal Vaccine: 0-64 Years (2 - PCV) [code = Pneumococcal Vaccine: 0-64 Years (2 - PCV)] [facility] Scheduled Test 2013-12-15 00:00:00 Pneumococcal Vaccine: 0-64 Years (2 - PCV) [code = Pneumococcal Vaccine: 0-64 Years (2 - PCV)] [facility] Scheduled Test 2013-12-15 00:00:00 Pneumococcal Vaccine: 0-64 Years (2 - PCV) [code = Pneumococcal Vaccine: 0-64 Years (2 - PCV)] [facility] Scheduled Test 2013-12-15 00:00:00 Pneumococcal Vaccine: 0-64 Years (2 - PCV) [code = Pneumococcal Vaccine: 0-64 Years (2 - PCV)] [facility] Scheduled Test 2013-12-15 00:00:00 Pneumococcal Vaccine: 0-64 Years (2 - PCV) [code = Pneumococcal Vaccine: 0-64 Years (2 - PCV)] [facility] Scheduled Test 2013-12-15 00:00:00 Pneumococcal Vaccine: 0-64 Years (2 - PCV) [code = Pneumococcal Vaccine: 0-64 Years (2 - PCV)] [facility] Scheduled Test 2013-12-15 00:00:00 Pneumococcal Vaccine: 0-64 Years (2 of 2 - PCV) [code = Pneumococcal Vaccine: 0-64 Years (2 of 2 - PCV)] [facility] Scheduled Test 2013-12-15 00:00:00 Pneumococcal Vaccine: 0-64 Years (2 of 2 - PCV) [code = Pneumococcal Vaccine: 0-64 Years (2 of 2 - PCV)] [facility] Scheduled Test 2013-12-15 00:00:00 Pneumococcal Vaccine: 0-64 Years (2 of 2 - PCV) [code = Pneumococcal Vaccine: 0-64 Years (2 of 2 - PCV)] [facility] Scheduled Test 2013-12-15 00:00:00 Pneumococcal Vaccine: 0-64 Years (2 of 2 - PCV) [code = Pneumococcal Vaccine: 0-64 Years (2 of 2 - PCV)] [facility] Scheduled Test 2013-12-15 00:00:00 Pneumococcal Vaccine: 0-64 Years (2 of 2 - PCV) [code = Pneumococcal Vaccine: 0-64 Years (2 of 2 - PCV)] [facility] Scheduled Test 2013-12-15 00:00:00 Pneumococcal Vaccine: 0-64 Years (2 of 2 - PCV) [code = Pneumococcal Vaccine: 0-64 Years (2 of 2 - PCV)] [facility] Scheduled Test 2013-12-15 00:00:00 Pneumococcal Vaccine: 0-64 Years (2 of 2 - PCV) [code = Pneumococcal Vaccine: 0-64 Years (2 of 2 - PCV)] [facility] Scheduled Test 2013-12-15 00:00:00 Pneumococcal Vaccine: 0-64 Years (2 of 2 - PCV) [code = Pneumococcal Vaccine: 0-64 Years (2 of 2 - PCV)] [facility] Scheduled Test 2013-12-15 00:00:00 Pneumococcal Vaccine: 0-64 Years (2 of 2 - PCV) [code = Pneumococcal Vaccine: 0-64 Years (2 of 2 - PCV)] [facility] Scheduled Test 2013-12-15 00:00:00 Pneumococcal Vaccine: 0-64 Years (2 - PCV) [code = Pneumococcal Vaccine: 0-64 Years (2 - PCV)] [facility] Scheduled Test 2013-12-15 00:00:00 Pneumococcal Vaccine: 0-64 Years (2 - PCV) [code = Pneumococcal Vaccine: 0-64 Years (2 - PCV)] [facility] Scheduled Test 2013-12-15 00:00:00 Pneumococcal Vaccine: 0-64 Years (2 - PCV) [code = Pneumococcal Vaccine: 0-64 Years (2 - PCV)] [facility] Scheduled Test 1993-01-14 00:00:00 Screening for malignant neoplasm of cervix (procedure) [code = [id number]] [facility] Scheduled Test 1993-01-14 00:00:00 Screening for malignant neoplasm of cervix (procedure) [code = 366651215] [facility] Scheduled Test 1993-01-14 00:00:00 Screening for malignant neoplasm of cervix (procedure) [code = [id number]] [facility] Scheduled Test 1993-01-14 00:00:00 Screening for malignant neoplasm of cervix (procedure) [code = 177621129] [facility] Scheduled Test 1993-01-14 00:00:00 Screening for malignant neoplasm of cervix (procedure) [code = 581979108] [facility] Scheduled Test 1993-01-14 00:00:00 Screening for malignant neoplasm of cervix (procedure) [code = 647636364] [facility] Scheduled Test 1993-01-14 00:00:00 Screening for malignant neoplasm of cervix (procedure) [code = 860382413] [facility] Scheduled Test 1993-01-14 00:00:00 Screening for malignant neoplasm of cervix (procedure) [code = 642504916] [facility] Scheduled Test 1993-01-14 00:00:00 Screening for malignant neoplasm of cervix (procedure) [code = 352779553] [facility] Scheduled Test 1993-01-14 00:00:00 Screening for malignant neoplasm of cervix (procedure) [code = 390388082] [facility] Scheduled Test 1993-01-14 00:00:00 Screening for malignant neoplasm of cervix (procedure) [code = 631137328] [facility] Scheduled Test 1993-01-14 00:00:00 Screening for malignant neoplasm of cervix (procedure) [code = 624221945] [facility] Scheduled Test 1993-01-14 00:00:00 Screening for malignant neoplasm of cervix (procedure) [code = 499305784] [facility] Scheduled Test 1993-01-14 00:00:00 Screening for malignant neoplasm of cervix (procedure) [code = 028099049] [facility] Scheduled Test 1993-01-14 00:00:00 Screening for malignant neoplasm of cervix (procedure) [code = 809237353] [facility] Scheduled Test 1993-01-14 00:00:00 Screening for malignant neoplasm of cervix (procedure) [code = 791551330] [facility] Scheduled Test 1993-01-14 00:00:00 Screening for malignant neoplasm of cervix (procedure) [code = 670500978] [facility] Scheduled Test 1993-01-14 00:00:00 Screening for malignant neoplasm of cervix (procedure) [code = 716666686] [facility] Scheduled Test 1993-01-14 00:00:00 Screening for malignant neoplasm of cervix (procedure) [code = 756725037] [facility] Scheduled Test 1993-01-14 00:00:00 Screening for malignant neoplasm of cervix (procedure) [code = 985682326] [facility] Scheduled Test 1993-01-14 00:00:00 Screening for malignant neoplasm of cervix (procedure) [code = 123918809] [facility] Scheduled Test 1993-01-14 00:00:00 Screening for malignant neoplasm of cervix (procedure) [code = 312543455] [facility] Scheduled Test 1993-01-14 00:00:00 Screening for malignant neoplasm of cervix (procedure) [code = 563343979] [facility] Scheduled Test 1993-01-14 00:00:00 Screening for malignant neoplasm of cervix (procedure) [code = 799531438] [facility] Scheduled Test 1993-01-14 00:00:00 Screening for malignant neoplasm of cervix (procedure) [code = 987404965] [facility] Scheduled Test 1993-01-14 00:00:00 Screening for malignant neoplasm of cervix (procedure) [code = 940197426] [facility] Scheduled Test 1993-01-14 00:00:00 Screening for malignant neoplasm of cervix (procedure) [code = 057007353] [facility] Sched[facility] Test 1993-01-14 00:00:00 Screening for malignant neoplasm of cervix (procedure) [code = 291406192] [facility] Sched[facility] Test 1993-01-14 00:00:00 Screening for malignant neoplasm of cervix (procedure) [code = 526925929] [facility] Sched[facility] Test 1993-01-14 00:00:00 Screening for malignant neoplasm of cervix (procedure) [code = 747251448] [facility] Sched[facility] Test 1993-01-14 00:00:00 Screening for malignant neoplasm of cervix (procedure) [code = 591359759] [facility] Scheduled Test 1993-01-14 00:00:00 Screening for malignant neoplasm of cervix (procedure) [code = 340816931] [facility] Scheduled Test 1993-01-14 00:00:00 Screening for malignant neoplasm of cervix (procedure) [code = 247456954] [facility] Sched[facility] Test 1993-01-14 00:00:00 Screening for malignant neoplasm of cervix (procedure) [code = 083162625] [facility] Sched[facility] Test 1993-01-14 00:00:00 Screening for malignant neoplasm of cervix (procedure) [code = 580314536] [facility] Sched[facility] Test 1993-01-14 00:00:00 Screening for malignant neoplasm of cervix (procedure) [code = 471207115] [facility] Sched[facility] Test 1993-01-14 00:00:00 Screening for malignant neoplasm of cervix (procedure) [code = 646413828] [facility] Scheduled Test 1993-01-14 00:00:00 Screening for malignant neoplasm of cervix (procedure) [code = 087954811] [facility] Test 1993-01-14 00:00:00 Screening for malignant neoplasm of cervix (procedure) [code = 604248312] [facility] Sched[facility] Test 1993-01-14 00:00:00 Screening for malignant neoplasm of cervix (procedure) [code = 725335129] [facility] Test 1993-01-14 00:00:00 Screening for malignant neoplasm of cervix (procedure) [code = 842049488] [facility] Sched[facility] Test 1993-01-14 00:00:00 Screening for malignant neoplasm of cervix (procedure) [code = 758995764] [facility] Sched[facility] Test 1993-01-14 00:00:00 Screening for malignant neoplasm of cervix (procedure) [code = 459916696] [facility] Test 1993-01-14 00:00:00 Screening for malignant neoplasm of cervix (procedure) [code = 079348290] [facility] Sched[facility] Test 1993-01-14 00:00:00 Screening for malignant neoplasm of cervix (procedure) [code = 687334870] [facility] Sched[facility] Test 1993-01-14 00:00:00 Screening for malignant neoplasm of cervix (procedure) [code = 081708457] [facility] Sched[facility] Test 1993-01-14 00:00:00 Screening for malignant neoplasm of cervix (procedure) [code = 113564180] [facility] Sched[facility] Test 1993-01-14 00:00:00 Screening for malignant neoplasm of cervix (procedure) [code = 841387072] [facility] Test 1993-01-14 00:00:00 Screening for malignant neoplasm of cervix (procedure) [code = 010675120] [facility] Test 1993-01-14 00:00:00 Screening for malignant neoplasm of cervix (procedure) [code = 816613953] [facility] Sched[facility] Test 1993-01-14 00:00:00 Screening for malignant neoplasm of cervix (procedure) [code = 372223478] [facility] Test 1993-01-14 00:00:00 Screening for malignant neoplasm of cervix (procedure) [code = 647972795] [facility] Test 1993-01-14 00:00:00 Screening for malignant neoplasm of cervix (procedure) [code = 943773364] [facility] Sched[facility] Test 1993-01-14 00:00:00 Screening for malignant neoplasm of cervix (procedure) [code = 774565832] [facility] Test 1993-01-14 00:00:00 Screening for malignant neoplasm of cervix (procedure) [code = 006562871] [facility] Test 1993-01-14 00:00:00 Screening for malignant neoplasm of cervix (procedure) [code = 586200948] [facility] Test 1993-01-14 00:00:00 Screening for malignant neoplasm of cervix (procedure) [code = 504883300] [facility] Test 1993-01-14 00:00:00 Screening for malignant neoplasm of cervix (procedure) [code = 444705654] [facility] Test 1993-01-14 00:00:00 Screening for malignant neoplasm of cervix (procedure) [code = 020511729] [facility] Test 1993-01-14 00:00:00 Screening for malignant neoplasm of cervix (procedure) [code = 724483731] [facility] Scheduled Test 1991-01-14 00:00:00 DTAP/TDAP/TD VACCINES (1 - Tdap) [code = DTAP/TDAP/TD VACCINES (1 - Tdap)] [facility] Test 1991-01-14 00:00:00 DTAP/TDAP/TD VACCINES (1 - Tdap) [code = DTAP/TDAP/TD VACCINES (1 - Tdap)] [facility] Test 1991-01-14 00:00:00 DTAP/TDAP/TD VACCINES (1 - Tdap) [code = DTAP/TDAP/TD VACCINES (1 - Tdap)] [facility] Test 1991-01-14 00:00:00 DTAP/TDAP/TD VACCINES (1 - Tdap) [code = DTAP/TDAP/TD VACCINES (1 - Tdap)] [facility] Test 1991-01-14 00:00:00 DTAP/TDAP/TD VACCINES (1 - Tdap) [code = DTAP/TDAP/TD VACCINES (1 - Tdap)] [facility] Test 1991-01-14 00:00:00 DTAP/TDAP/TD VACCINES (1 - Tdap) [code = DTAP/TDAP/TD VACCINES (1 - Tdap)] [facility] Test 1991-01-14 00:00:00 DTAP/TDAP/TD VACCINES (1 - Tdap) [code = DTAP/TDAP/TD VACCINES (1 - Tdap)] [facility] Test 1991-01-14 00:00:00 DTAP/TDAP/TD VACCINES (1 - Tdap) [code = DTAP/TDAP/TD VACCINES (1 - Tdap)] [facility] Test 1991-01-14 00:00:00 DTAP/TDAP/TD VACCINES (1 - Tdap) [code = DTAP/TDAP/TD VACCINES (1 - Tdap)] [facility] Test 1991-01-14 00:00:00 DTAP/TDAP/TD VACCINES (1 - Tdap) [code = DTAP/TDAP/TD VACCINES (1 - Tdap)] [facility] Test 1991-01-14 00:00:00 DTAP/TDAP/TD VACCINES (1 - Tdap) [code = DTAP/TDAP/TD VACCINES (1 - Tdap)] [facility] Test 1991-01-14 00:00:00 DTAP/TDAP/TD VACCINES (1 - Tdap) [code = DTAP/TDAP/TD VACCINES (1 - Tdap)] [facility] Test 1991-01-14 00:00:00 DTAP/TDAP/TD VACCINES (1 - Tdap) [code = DTAP/TDAP/TD VACCINES (1 - Tdap)] [facility] Test 1991-01-14 00:00:00 DTAP/TDAP/TD VACCINES (1 - Tdap) [code = DTAP/TDAP/TD VACCINES (1 - Tdap)] [facility] Test 1991-01-14 00:00:00 DTAP/TDAP/TD VACCINES (1 - Tdap) [code = DTAP/TDAP/TD VACCINES (1 - Tdap)] [facility] Test 1991-01-14 00:00:00 DTAP/TDAP/TD VACCINES (1 - Tdap) [code = DTAP/TDAP/TD VACCINES (1 - Tdap)] [facility] Test 1991-01-14 00:00:00 DTAP/TDAP/TD VACCINES (1 - Tdap) [code = DTAP/TDAP/TD VACCINES (1 - Tdap)] [facility] Test 1991-01-14 00:00:00 DTAP/TDAP/TD VACCINES (1 - Tdap) [code = DTAP/TDAP/TD VACCINES (1 - Tdap)] [facility] Test 1991-01-14 00:00:00 DTAP/TDAP/TD VACCINES (1 - Tdap) [code = DTAP/TDAP/TD VACCINES (1 - Tdap)] [facility] Test 1991-01-14 00:00:00 DTAP/TDAP/TD VACCINES (1 - Tdap) [code = DTAP/TDAP/TD VACCINES (1 - Tdap)] [facility] Scheduled Test 1991-01-14 00:00:00 DTAP/TDAP/TD VACCINES (1 - Tdap) [code = DTAP/TDAP/TD VACCINES (1 - Tdap)] [facility] Test 1991-01-14 00:00:00 DTAP/TDAP/TD VACCINES (1 - Tdap) [code = DTAP/TDAP/TD VACCINES (1 - Tdap)] [facility] Sched[facility] Test 1991-01-14 00:00:00 DTAP/TDAP/TD VACCINES (1 - Tdap) [code = DTAP/TDAP/TD VACCINES (1 - Tdap)] [facility] Sched[facility] Test 1991-01-14 00:00:00 DTAP/TDAP/TD VACCINES (1 - Tdap) [code = DTAP/TDAP/TD VACCINES (1 - Tdap)] [facility] Sched[facility] Test 1991-01-14 00:00:00 DTAP/TDAP/TD VACCINES (1 - Tdap) [code = DTAP/TDAP/TD VACCINES (1 - Tdap)] [facility] Sched[facility] Test 1991-01-14 00:00:00 DTAP/TDAP/TD VACCINES (1 - Tdap) [code = DTAP/TDAP/TD VACCINES (1 - Tdap)] [facility] Sched[facility] Test 1991-01-14 00:00:00 DTAP/TDAP/TD VACCINES (1 - Tdap) [code = DTAP/TDAP/TD VACCINES (1 - Tdap)] [facility] Sched[facility] Test 1991-01-14 00:00:00 DTAP/TDAP/TD VACCINES (1 - Tdap) [code = DTAP/TDAP/TD VACCINES (1 - Tdap)] [facility] Scheduled Test 1991-01-14 00:00:00 DTAP/TDAP/TD VACCINES (1 - Tdap) [code = DTAP/TDAP/TD VACCINES (1 - Tdap)] [facility] Scheduled Test 1991-01-14 00:00:00 DTAP/TDAP/TD VACCINES (1 - Tdap) [code = DTAP/TDAP/TD VACCINES (1 - Tdap)] [facility] Scheduled Test 1991-01-14 00:00:00 DTAP/TDAP/TD VACCINES (1 - Tdap) [code = DTAP/TDAP/TD VACCINES (1 - Tdap)] [facility] Sched[facility] Test 1991-01-14 00:00:00 DTAP/TDAP/TD VACCINES (1 - Tdap) [code = DTAP/TDAP/TD VACCINES (1 - Tdap)] [facility] Sched[facility] Test 1991-01-14 00:00:00 DTAP/TDAP/TD VACCINES (1 - Tdap) [code = DTAP/TDAP/TD VACCINES (1 - Tdap)] [facility] Scheduled Test 1991-01-14 00:00:00 DTAP/TDAP/TD VACCINES (1 - Tdap) [code = DTAP/TDAP/TD VACCINES (1 - Tdap)] [facility] Scheduled Test 1991-01-14 00:00:00 DTAP/TDAP/TD VACCINES (1 - Tdap) [code = DTAP/TDAP/TD VACCINES (1 - Tdap)] [facility] Test 1991-01-14 00:00:00 DTAP/TDAP/TD VACCINES (1 - Tdap) [code = DTAP/TDAP/TD VACCINES (1 - Tdap)] [facility] Test 1991-01-14 00:00:00 DTAP/TDAP/TD VACCINES (1 - Tdap) [code = DTAP/TDAP/TD VACCINES (1 - Tdap)] [facility] Test 1991-01-14 00:00:00 DTAP/TDAP/TD VACCINES (1 - Tdap) [code = DTAP/TDAP/TD VACCINES (1 - Tdap)] [facility] Test 1991-01-14 00:00:00 DTAP/TDAP/TD VACCINES (1 - Tdap) [code = DTAP/TDAP/TD VACCINES (1 - Tdap)] [facility] Sched[facility] Test 1991-01-14 00:00:00 DTAP/TDAP/TD VACCINES (1 - Tdap) [code = DTAP/TDAP/TD VACCINES (1 - Tdap)] [facility] Test 1991-01-14 00:00:00 DTAP/TDAP/TD VACCINES (1 - Tdap) [code = DTAP/TDAP/TD VACCINES (1 - Tdap)] [facility] Test 1991-01-14 00:00:00 DTAP/TDAP/TD VACCINES (1 - Tdap) [code = DTAP/TDAP/TD VACCINES (1 - Tdap)] [facility] Test 1991-01-14 00:00:00 DTAP/TDAP/TD VACCINES (1 - Tdap) [code = DTAP/TDAP/TD VACCINES (1 - Tdap)] [facility] Test 1991-01-14 00:00:00 DTAP/TDAP/TD VACCINES (1 - Tdap) [code = DTAP/TDAP/TD VACCINES (1 - Tdap)] [facility] Test 1991-01-14 00:00:00 DTAP/TDAP/TD VACCINES (1 - Tdap) [code = DTAP/TDAP/TD VACCINES (1 - Tdap)] [facility] Test 1991-01-14 00:00:00 DTAP/TDAP/TD VACCINES (1 - Tdap) [code = DTAP/TDAP/TD VACCINES (1 - Tdap)] [facility] Test 1991-01-14 00:00:00 DTAP/TDAP/TD VACCINES (1 - Tdap) [code = DTAP/TDAP/TD VACCINES (1 - Tdap)] [facility] Test 1991-01-14 00:00:00 DTAP/TDAP/TD VACCINES (1 - Tdap) [code = DTAP/TDAP/TD VACCINES (1 - Tdap)] [facility] Test 1991-01-14 00:00:00 DTAP/TDAP/TD VACCINES (1 - Tdap) [code = DTAP/TDAP/TD VACCINES (1 - Tdap)] [facility] Test 1991-01-14 00:00:00 DTAP/TDAP/TD VACCINES (1 - Tdap) [code = DTAP/TDAP/TD VACCINES (1 - Tdap)] [facility] Test 1991-01-14 00:00:00 DTAP/TDAP/TD VACCINES (1 - Tdap) [code = DTAP/TDAP/TD VACCINES (1 - Tdap)] [facility] Test 1991-01-14 00:00:00 DTAP/TDAP/TD VACCINES (1 - Tdap) [code = DTAP/TDAP/TD VACCINES (1 - Tdap)] [facility] Test 1991-01-14 00:00:00 DTAP/TDAP/TD VACCINES (1 - Tdap) [code = DTAP/TDAP/TD VACCINES (1 - Tdap)] [facility] Test 1991-01-14 00:00:00 DTAP/TDAP/TD VACCINES (1 - Tdap) [code = DTAP/TDAP/TD VACCINES (1 - Tdap)] [facility] Test 1991-01-14 00:00:00 DTAP/TDAP/TD VACCINES (1 - Tdap) [code = DTAP/TDAP/TD VACCINES (1 - Tdap)] [facility] Test 1991-01-14 00:00:00 DTAP/TDAP/TD VACCINES (1 - Tdap) [code = DTAP/TDAP/TD VACCINES (1 - Tdap)] [facility] Test 1991-01-14 00:00:00 DTAP/TDAP/TD VACCINES (1 - Tdap) [code = DTAP/TDAP/TD VACCINES (1 - Tdap)] [facility] Test 1991-01-14 00:00:00 DTAP/TDAP/TD VACCINES (1 - Tdap) [code = DTAP/TDAP/TD VACCINES (1 - Tdap)] [facility] Test 1991-01-14 00:00:00 DTAP/TDAP/TD VACCINES (1 - Tdap) [code = DTAP/TDAP/TD VACCINES (1 - Tdap)] [facility] Test 1991-01-14 00:00:00 DTAP/TDAP/TD VACCINES (1 - Tdap) [code = DTAP/TDAP/TD VACCINES (1 - Tdap)] [facility] Test 1990-01-14 00:00:00 HEPATITIS C SCREENING [code = HEPATITIS C SCREENING] [facility] 1990-01-14 00:00:00 HEPATITIS C SCREENING [code = HEPATITIS C SCREENING] [facility] 1990-01-14 00:00:00 HEPATITIS C SCREENING [code = HEPATITIS C SCREENING] [facility] Test 1990-01-14 00:00:00 HEPATITIS C SCREENING [code = HEPATITIS C SCREENING] [facility] Test 1990-01-14 00:00:00 HEPATITIS C SCREENING [code = HEPATITIS C SCREENING] [facility] Test 1990-01-14 00:00:00 HEPATITIS C SCREENING [code = HEPATITIS C SCREENING] [facility] Test 1990-01-14 00:00:00 HEPATITIS C SCREENING [code = HEPATITIS C SCREENING] [facility] Test 1990-01-14 00:00:00 HEPATITIS C SCREENING [code = HEPATITIS C SCREENING] [facility] Test 1990-01-14 00:00:00 HEPATITIS C SCREENING [code = HEPATITIS C SCREENING] [facility] Test 1990-01-14 00:00:00 HEPATITIS C SCREENING [code = HEPATITIS C SCREENING] [facility] Test 1990-01-14 00:00:00 HEPATITIS C SCREENING [code = HEPATITIS C SCREENING] [facility] Test 1990-01-14 00:00:00 HEPATITIS C SCREENING [code = HEPATITIS C SCREENING] [facility] Test 1990-01-14 00:00:00 HEPATITIS C SCREENING [code = HEPATITIS C SCREENING] [facility] Test 1990-01-14 00:00:00 HEPATITIS C SCREENING [code = HEPATITIS C SCREENING] [facility] Test 1990-01-14 00:00:00 HEPATITIS C SCREENING [code = HEPATITIS C SCREENING] [facility] Test 1990-01-14 00:00:00 HEPATITIS C SCREENING [code = HEPATITIS C SCREENING] [facility] Test 1990-01-14 00:00:00 HEPATITIS C SCREENING [code = HEPATITIS C SCREENING] [facility] Test 1990-01-14 00:00:00 HEPATITIS C SCREENING [code = HEPATITIS C SCREENING] [facility] Test 1990-01-14 00:00:00 HEPATITIS C SCREENING [code = HEPATITIS C SCREENING] [facility] Test 1990-01-14 00:00:00 HEPATITIS C SCREENING [code = HEPATITIS C SCREENING] [facility] Test 1990-01-14 00:00:00 HEPATITIS C SCREENING [code = HEPATITIS C SCREENING] [facility] Test 1990-01-14 00:00:00 HEPATITIS C SCREENING [code = HEPATITIS C SCREENING] [facility] Test 1990-01-14 00:00:00 HEPATITIS C SCREENING [code = HEPATITIS C SCREENING] [facility] Test 1990-01-14 00:00:00 HEPATITIS C SCREENING [code = HEPATITIS C SCREENING] [facility] Test 1990-01-14 00:00:00 HEPATITIS C SCREENING [code = HEPATITIS C SCREENING] [facility] Test 1990-01-14 00:00:00 HEPATITIS C SCREENING [code = HEPATITIS C SCREENING] [facility] 1990-01-14 00:00:00 HEPATITIS C SCREENING [code = HEPATITIS C SCREENING] [facility] Test 1990-01-14 00:00:00 HEPATITIS C SCREENING [code = HEPATITIS C SCREENING] [facility] Test 1990-01-14 00:00:00 HEPATITIS C SCREENING [code = HEPATITIS C SCREENING] [facility] 1990-01-14 00:00:00 HEPATITIS C SCREENING [code = HEPATITIS C SCREENING] [facility] Test 1990-01-14 00:00:00 HEPATITIS C SCREENING [code = HEPATITIS C SCREENING] [facility] Test 1990-01-14 00:00:00 HEPATITIS C SCREENING [code = HEPATITIS C SCREENING] [facility] Test 1990-01-14 00:00:00 HEPATITIS C SCREENING [code = HEPATITIS C SCREENING] [facility] Test 1990-01-14 00:00:00 HEPATITIS C SCREENING [code = HEPATITIS C SCREENING] [facility] Test 1990-01-14 00:00:00 HEPATITIS C SCREENING [code = HEPATITIS C SCREENING] [facility] Test 1990-01-14 00:00:00 HEPATITIS C SCREENING [code = HEPATITIS C SCREENING] [facility] Test 1990-01-14 00:00:00 HEPATITIS C SCREENING [code = HEPATITIS C SCREENING] [facility] Test 1990-01-14 00:00:00 HEPATITIS C SCREENING [code = HEPATITIS C SCREENING] [facility] Test 1990-01-14 00:00:00 HEPATITIS C SCREENING [code = HEPATITIS C SCREENING] [facility] Test 1990-01-14 00:00:00 HEPATITIS C SCREENING [code = HEPATITIS C SCREENING] [facility] Test 1990-01-14 00:00:00 HEPATITIS C SCREENING [code = HEPATITIS C SCREENING] [facility] Test 1990-01-14 00:00:00 HEPATITIS C SCREENING [code = HEPATITIS C SCREENING] [facility] Test 1990-01-14 00:00:00 HEPATITIS C SCREENING [code = HEPATITIS C SCREENING] [facility] Test 1990-01-14 00:00:00 HEPATITIS C SCREENING [code = HEPATITIS C SCREENING] [facility] Test 1990-01-14 00:00:00 HEPATITIS C SCREENING [code = HEPATITIS C SCREENING] [facility] Test 1990-01-14 00:00:00 HEPATITIS C SCREENING [code = HEPATITIS C SCREENING] [facility] Test 1990-01-14 00:00:00 HEPATITIS C SCREENING [code = HEPATITIS C SCREENING] [facility] Test 1990-01-14 00:00:00 HEPATITIS C SCREENING [code = HEPATITIS C SCREENING] [facility] Test 1990-01-14 00:00:00 HEPATITIS C SCREENING [code = HEPATITIS C SCREENING] [facility] Test 1990-01-14 00:00:00 HEPATITIS C SCREENING [code = HEPATITIS C SCREENING] [facility] Test 1990-01-14 00:00:00 HEPATITIS C SCREENING [code = HEPATITIS C SCREENING] [facility] Test 1990-01-14 00:00:00 HEPATITIS C SCREENING [code = HEPATITIS C SCREENING] [facility] Test 1990-01-14 00:00:00 HEPATITIS C SCREENING [code = HEPATITIS C SCREENING] [facility] Test 1990-01-14 00:00:00 HEPATITIS C SCREENING [code = HEPATITIS C SCREENING] [facility] Test 1990-01-14 00:00:00 HEPATITIS C SCREENING [code = HEPATITIS C SCREENING] [facility] Test 1990-01-14 00:00:00 HEPATITIS C SCREENING [code = HEPATITIS C SCREENING] [facility] Test 1990-01-14 00:00:00 HEPATITIS C SCREENING [code = HEPATITIS C SCREENING] [facility] Test 1990-01-14 00:00:00 HEPATITIS C SCREENING [code = HEPATITIS C SCREENING] [facility] Test 1990-01-14 00:00:00 HEPATITIS C SCREENING [code = HEPATITIS C SCREENING] [facility] Test 1990-01-14 00:00:00 HEPATITIS C SCREENING [code = HEPATITIS C SCREENING] [facility] Test 1987-01-14 00:00:00 Human immunodeficiency virus screening (procedure) [code = 406699157] [facility] Test 1987-01-14 00:00:00 Human immunodeficiency virus screening (procedure) [code = [id number]] [facility] Scheduled Test 1984 00:00:00 Tobacco Cessation Counseling and Screening (12+) [code = Tobacco Cessation Counseling and Screening (12+)] [facility] Sched[facility] Test 1984 00:00:00 Tobacco Cessation Counseling and Screening (12+) [code = Tobacco Cessation Counseling and Screening (12+)] [facility] Test 1984 00:00:00 Tobacco Cessation Counseling and Screening (12+) [code = Tobacco Cessation Counseling and Screening (12+)] [facility] Sched[facility] Test 1984 00:00:00 Tobacco Cessation Counseling and Screening (12+) [code = Tobacco Cessation Counseling and Screening (12+)] [facility] Sched[facility] Test 1984 00:00:00 Tobacco Cessation Counseling and Screening (12+) [code = Tobacco Cessation Counseling and Screening (12+)] [facility] Test 1984 00:00:00 Tobacco Cessation Counseling and Screening (12+) [code = Tobacco Cessation Counseling and Screening (12+)] [facility] Sched[facility] Test 1984 00:00:00 Tobacco Cessation Counseling and Screening (12+) [code = Tobacco Cessation Counseling and Screening (12+)] [facility] Sched[facility] Test 1984 00:00:00 Tobacco Cessation Counseling and Screening (12+) [code = Tobacco Cessation Counseling and Screening (12+)] [facility] Sched[facility] Test 1984 00:00:00 Tobacco Cessation Counseling and Screening (12+) [code = Tobacco Cessation Counseling and Screening (12+)] [facility] Sched[facility] Test 1984 00:00:00 Tobacco Cessation Counseling and Screening (12+) [code = Tobacco Cessation Counseling and Screening (12+)] [facility] Scheduled Test 1984 00:00:00 Tobacco Cessation Counseling and Screening (12+) [code = Tobacco Cessation Counseling and Screening (12+)] [facility] Test 1984 00:00:00 Tobacco Cessation Counseling and Screening (12+) [code = Tobacco Cessation Counseling and Screening (12+)] [facility] Sched[facility] Test 1984 00:00:00 Tobacco Cessation Counseling and Screening (12+) [code = Tobacco Cessation Counseling and Screening (12+)] [facility] Sched[facility] Test 1984 00:00:00 Tobacco Cessation Counseling and Screening (12+) [code = Tobacco Cessation Counseling and Screening (12+)] [facility] Sched[facility] Test 1984 00:00:00 Tobacco Cessation Counseling and Screening (12+) [code = Tobacco Cessation Counseling and Screening (12+)] [facility] Test 1984 00:00:00 Tobacco Cessation Counseling and Screening (12+) [code = Tobacco Cessation Counseling and Screening (12+)] [facility] Sched[facility] Test 1984 00:00:00 Tobacco Cessation Counseling and Screening (12+) [code = Tobacco Cessation Counseling and Screening (12+)] [facility] Sched[facility] Test 1984 00:00:00 Tobacco Cessation Counseling and Screening (12+) [code = Tobacco Cessation Counseling and Screening (12+)] [facility] Sched[facility] Test 1984 00:00:00 Tobacco Cessation Counseling and Screening (12+) [code = Tobacco Cessation Counseling and Screening (12+)] [facility] Scheduled Test 1984 00:00:00 Tobacco Cessation Counseling and Screening (12+) [code = Tobacco Cessation Counseling and Screening (12+)] [facility] Sched[facility] Test 1984 00:00:00 Tobacco Cessation Counseling and Screening (12+) [code = Tobacco Cessation Counseling and Screening (12+)] [facility] Test 1984 00:00:00 Tobacco Cessation Counseling and Screening (12+) [code = Tobacco Cessation Counseling and Screening (12+)] [facility] Sched[facility] Test 1984 00:00:00 Tobacco Cessation Counseling and Screening (12+) [code = Tobacco Cessation Counseling and Screening (12+)] [facility] Sched[facility] Test 1972 00:00:00 Screening for malignant neoplasm of breast (procedure) [code = [id number]] [facility] Test 1972 00:00:00 CT Colonography (combo) [code = CT Colonography (combo)] [facility] Sched[facility] Test 1972 00:00:00 Screening for malignant neoplasm of colon (procedure) [code = 184274767] [facility] Sched[facility] Test 1972 00:00:00 Screening for malignant neoplasm of colon (procedure) [code = 399652554] [facility] Sched[facility] Test 1972 00:00:00 Screening for malignant neoplasm of colon (procedure) [code = 577511032] [facility] Sched[facility] Test 1972 00:00:00 Screening for malignant neoplasm of colon (procedure) [code = 590976607] [facility] Sched[facility] Test 1972 00:00:00 Sigmoidoscopy [code = Sigmoidoscopy] [facility] Test 1972 00:00:00 Screening for malignant neoplasm of breast (procedure) [code = 603713123] [facility] Sched[facility] Test 1972 00:00:00 CT Colonography (combo) [code = CT Colonography (combo)] [facility] Test 1972 00:00:00 Screening for malignant neoplasm of colon (procedure) [code = 344246706] [facility] Sched[facility] Test 1972 00:00:00 Screening for malignant neoplasm of colon (procedure) [code = 260343273] [facility] Sched[facility] Test 1972 00:00:00 Screening for malignant neoplasm of colon (procedure) [code = 848659304] [facility] Sched[facility] Test 1972 00:00:00 Screening for malignant neoplasm of colon (procedure) [code = 376707131] [facility] Sched[facility] Test 1972 00:00:00 Sigmoidoscopy [code = Sigmoidoscopy] [facility] Sched[facility] Test 1972 00:00:00 Screening for malignant neoplasm of breast (procedure) [code = 720388192] [facility] Sched[facility] Test 1972 00:00:00 CT Colonography (combo) [code = CT Colonography (combo)] [facility] Test 1972 00:00:00 Screening for malignant neoplasm of colon (procedure) [code = 858074307] [facility] Sched[facility] Test 1972 00:00:00 Screening for malignant neoplasm of colon (procedure) [code = 439000227] [facility] Test 1972 00:00:00 Screening for malignant neoplasm of colon (procedure) [code = 713263148] [facility] Sched[facility] Test 1972 00:00:00 Screening for malignant neoplasm of colon (procedure) [code = 291527578] [facility] Test 1972 00:00:00 Sigmoidoscopy [code = Sigmoidoscopy] [facility] Test 1972 00:00:00 Screening for malignant neoplasm of breast (procedure) [code = 404515444] [facility] Sched[facility] Test 1972 00:00:00 CT Colonography (combo) [code = CT Colonography (combo)] [facility] Test 1972 00:00:00 Screening for malignant neoplasm of colon (procedure) [code = 680596927] [facility] Test 1972 00:00:00 Screening for malignant neoplasm of colon (procedure) [code = 585636983] [facility] Sched[facility] Test 1972 00:00:00 Screening for malignant neoplasm of colon (procedure) [code = 290059509] [facility] Test 1972 00:00:00 Screening for malignant neoplasm of colon (procedure) [code = 946258297] [facility] Test 1972 00:00:00 Sigmoidoscopy [code = Sigmoidoscopy] [facility] Test 1972 00:00:00 Screening for malignant neoplasm of breast (procedure) [code = 399156986] [facility] Sched[facility] Test 1972 00:00:00 CT Colonography (combo) [code = CT Colonography (combo)] [facility] Test 1972 00:00:00 Screening for malignant neoplasm of colon (procedure) [code = 632024641] [facility] Test 1972 00:00:00 Screening for malignant neoplasm of colon (procedure) [code = 593409608] [facility] Test 1972 00:00:00 Screening for malignant neoplasm of colon (procedure) [code = 352390340] [facility] Test 1972 00:00:00 Screening for malignant neoplasm of colon (procedure) [code = 595527853] [facility] Test 1972 00:00:00 Sigmoidoscopy [code = Sigmoidoscopy] [facility] Test 1972 00:00:00 Screening for malignant neoplasm of breast (procedure) [code = 638535783] [facility] Test 1972 00:00:00 CT Colonography (combo) [code = CT Colonography (combo)] [facility] Test 1972 00:00:00 Screening for malignant neoplasm of colon (procedure) [code = 596627144] [facility] Test 1972 00:00:00 Screening for malignant neoplasm of colon (procedure) [code = 638873258] [facility] Test 1972 00:00:00 Screening for malignant neoplasm of colon (procedure) [code = 683601400] [facility] Test 1972 00:00:00 Screening for malignant neoplasm of colon (procedure) [code = 961294680] [facility] Test 1972 00:00:00 Sigmoidoscopy [code = Sigmoidoscopy] [facility] Test 1972 00:00:00 Screening for malignant neoplasm of breast (procedure) [code = 637750946] [facility] Test 1972 00:00:00 CT Colonography (combo) [code = CT Colonography (combo)] [facility] Test 1972 00:00:00 Screening for malignant neoplasm of colon (procedure) [code = 629772715] [facility] Test 1972 00:00:00 Screening for malignant neoplasm of colon (procedure) [code = 865293728] [facility] Test 1972 00:00:00 Screening for malignant neoplasm of colon (procedure) [code = 870671269] [facility] Test 1972 00:00:00 Screening for malignant neoplasm of colon (procedure) [code = 349018451] [facility] Test 1972 00:00:00 Sigmoidoscopy [code = Sigmoidoscopy] [facility] Test 1972 00:00:00 Screening for malignant neoplasm of breast (procedure) [code = 810006719] [facility] Test 1972 00:00:00 CT Colonography (combo) [code = CT Colonography (combo)] [facility] Test 1972 00:00:00 Screening for malignant neoplasm of colon (procedure) [code = 160314617] [facility] Test 1972 00:00:00 Screening for malignant neoplasm of colon (procedure) [code = 740165758] [facility] Test 1972 00:00:00 Screening for malignant neoplasm of colon (procedure) [code = 864860286] [facility] Test 1972 00:00:00 Screening for malignant neoplasm of colon (procedure) [code = 403152298] [facility] Test 1972 00:00:00 Sigmoidoscopy [code = Sigmoidoscopy] [facility] Test 1972 00:00:00 Screening for malignant neoplasm of breast (procedure) [code = 896149105] [facility] Test 1972 00:00:00 CT Colonography (combo) [code = CT Colonography (combo)] [facility] Test 1972 00:00:00 Screening for malignant neoplasm of colon (procedure) [code = 705806270] [facility] Test 1972 00:00:00 Screening for malignant neoplasm of colon (procedure) [code = 053016453] [facility] Test 1972 00:00:00 Screening for malignant neoplasm of colon (procedure) [code = 048368226] [facility] Test 1972 00:00:00 Screening for malignant neoplasm of colon (procedure) [code = 500150424] [facility] Test 1972 00:00:00 Sigmoidoscopy [code = Sigmoidoscopy] [facility] Test 1972 00:00:00 Screening for malignant neoplasm of breast (procedure) [code = 438259787] [facility] Test 1972 00:00:00 CT Colonography (combo) [code = CT Colonography (combo)] [facility] Test 1972 00:00:00 Screening for malignant neoplasm of colon (procedure) [code = 757312277] [facility] Test 1972 00:00:00 Screening for malignant neoplasm of colon (procedure) [code = 522491659] [facility] Test 1972 00:00:00 Screening for malignant neoplasm of colon (procedure) [code = 919434248] [facility] Test 1972 00:00:00 Screening for malignant neoplasm of colon (procedure) [code = 455315007] [facility] Test 1972 00:00:00 Sigmoidoscopy [code = Sigmoidoscopy] [facility] Sched[facility] Test 1972 00:00:00 Screening for malignant neoplasm of breast (procedure) [code = 323295962] [facility] Sched[facility] Test 1972 00:00:00 CT Colonography (combo) [code = CT Colonography (combo)] [facility] Test 1972 00:00:00 Screening for malignant neoplasm of colon (procedure) [code = 139826032] [facility] Test 1972 00:00:00 Screening for malignant neoplasm of colon (procedure) [code = 519424748] [facility] Test 1972 00:00:00 Screening for malignant neoplasm of colon (procedure) [code = [id number]] [facility] 1972 00:00:00 Screening for malignant neoplasm of colon (procedure) [code = 356678734] [facility] 1972 00:00:00 Sigmoidoscopy [code = Sigmoidoscopy] [facility] 1972 00:00:00 Screening for malignant neoplasm of breast (procedure) [code = 143190569] [facility] 1972 00:00:00 CT Colonography (combo) [code = CT Colonography (combo)] [facility] 1972 00:00:00 Screening for malignant neoplasm of colon (procedure) [code = 601728237] [facility] 1972 00:00:00 Screening for malignant neoplasm of colon (procedure) [code = 360575372] [facility] 1972 00:00:00 Screening for malignant neoplasm of colon (procedure) [code = 334003735] [facility] 1972 00:00:00 Screening for malignant neoplasm of colon (procedure) [code = 301272211] [facility] 1972 00:00:00 Sigmoidoscopy [code = Sigmoidoscopy] [facility] 1972 00:00:00 Screening for malignant neoplasm of breast (procedure) [code = 410901894] [facility] 1972 00:00:00 CT Colonography (combo) [code = CT Colonography (combo)] [facility] 1972 00:00:00 Screening for malignant neoplasm of colon (procedure) [code = 377154166] [facility] 1972 00:00:00 Screening for malignant neoplasm of colon (procedure) [code = 268660847] [facility] 1972 00:00:00 Screening for malignant neoplasm of colon (procedure) [code = 652366393] [facility] 1972 00:00:00 Screening for malignant neoplasm of colon (procedure) [code = 976701638] [facility] 1972 00:00:00 Sigmoidoscopy [code = Sigmoidoscopy] [facility] 1972 00:00:00 Screening for malignant neoplasm of breast (procedure) [code = 900254234] [facility] 1972 00:00:00 CT Colonography (combo) [code = CT Colonography (combo)] [facility] 1972 00:00:00 Screening for malignant neoplasm of colon (procedure) [code = 895840643] [facility] 1972 00:00:00 Screening for malignant neoplasm of colon (procedure) [code = 292027708] [facility] 1972 00:00:00 Screening for malignant neoplasm of colon (procedure) [code = 190590700] [facility] 1972 00:00:00 Screening for malignant neoplasm of colon (procedure) [code = 984168527] [facility] 1972 00:00:00 Sigmoidoscopy [code = Sigmoidoscopy] [facility] 1972 00:00:00 Screening for malignant neoplasm of breast (procedure) [code = 317558171] [facility] 1972 00:00:00 CT Colonography (combo) [code = CT Colonography (combo)] [facility] 1972 00:00:00 Screening for malignant neoplasm of colon (procedure) [code = 158362417] [facility] 1972 00:00:00 Screening for malignant neoplasm of colon (procedure) [code = 686507248] [facility] 1972 00:00:00 Screening for malignant neoplasm of colon (procedure) [code = 624300607] [facility] 1972 00:00:00 Screening for malignant neoplasm of colon (procedure) [code = 775053205] [facility] 1972 00:00:00 Sigmoidoscopy [code = Sigmoidoscopy] [facility] 1972 00:00:00 Screening for malignant neoplasm of breast (procedure) [code = 428884025] [facility] 1972 00:00:00 CT Colonography (combo) [code = CT Colonography (combo)] [facility] 1972 00:00:00 Screening for malignant neoplasm of colon (procedure) [code = 293894594] [facility] 1972 00:00:00 Screening for malignant neoplasm of colon (procedure) [code = 130502983] [facility] 1972 00:00:00 Screening for malignant neoplasm of colon (procedure) [code = 511467522] [facility] 1972 00:00:00 Screening for malignant neoplasm of colon (procedure) [code = 328384074] [facility] 1972 00:00:00 Sigmoidoscopy [code = Sigmoidoscopy] [facility] 1972 00:00:00 Screening for malignant neoplasm of breast (procedure) [code = 317562363] [facility] 1972 00:00:00 CT Colonography (combo) [code = CT Colonography (combo)] [facility] 1972 00:00:00 Screening for malignant neoplasm of colon (procedure) [code = 256269979] [facility] 1972 00:00:00 Screening for malignant neoplasm of colon (procedure) [code = 993601701] [facility] 1972 00:00:00 Screening for malignant neoplasm of colon (procedure) [code = 974906470] [facility] 1972 00:00:00 Screening for malignant neoplasm of colon (procedure) [code = 926955519] [facility] 1972 00:00:00 Sigmoidoscopy [code = Sigmoidoscopy] [facility] 1972 00:00:00 Screening for malignant neoplasm of breast (procedure) [code = 660670888] [facility] 1972 00:00:00 CT Colonography (combo) [code = CT Colonography (combo)] [facility] 1972 00:00:00 Screening for malignant neoplasm of breast (procedure) [code = 523032338] [facility] 1972 00:00:00 CT Colonography (combo) [code = CT Colonography (combo)] [facility] 1972 00:00:00 Screening for malignant neoplasm of colon (procedure) [code = 274602028] [facility] 1972 00:00:00 Screening for malignant neoplasm of colon (procedure) [code = 459910320] [facility] 1972 00:00:00 Screening for malignant neoplasm of colon (procedure) [code = 714833102] [facility] 1972 00:00:00 Screening for malignant neoplasm of colon (procedure) [code = 673386866] [facility] 1972 00:00:00 Sigmoidoscopy [code = Sigmoidoscopy] [facility] 1972 00:00:00 Screening for malignant neoplasm of colon (procedure) [code = 924316900] [facility] 1972 00:00:00 Screening for malignant neoplasm of colon (procedure) [code = 885364143] [facility] 1972 00:00:00 Screening for malignant neoplasm of colon (procedure) [code = 853660562] [facility] 1972 00:00:00 Screening for malignant neoplasm of colon (procedure) [code = 106576581] [facility] 1972 00:00:00 Sigmoidoscopy [code = Sigmoidoscopy] [facility] 1972 00:00:00 Screening for malignant neoplasm of breast (procedure) [code = 216685023] [facility] 1972 00:00:00 CT Colonography (combo) [code = CT Colonography (combo)] [facility] 1972 00:00:00 Screening for malignant neoplasm of colon (procedure) [code = 582942019] [facility] 1972 00:00:00 Screening for malignant neoplasm of colon (procedure) [code = 098080582] [facility] 1972 00:00:00 Screening for malignant neoplasm of colon (procedure) [code = 208042019] [facility] 1972 00:00:00 Screening for malignant neoplasm of colon (procedure) [code = 187439957] [facility] 1972 00:00:00 Sigmoidoscopy [code = Sigmoidoscopy] [facility] 1972 00:00:00 Screening for malignant neoplasm of breast (procedure) [code = 299330727] [facility] 1972 00:00:00 CT Colonography (combo) [code = CT Colonography (combo)] [facility] 1972 00:00:00 Screening for malignant neoplasm of colon (procedure) [code = 939972875] [facility] 1972 00:00:00 Screening for malignant neoplasm of colon (procedure) [code = 925112193] [facility] 1972 00:00:00 Screening for malignant neoplasm of colon (procedure) [code = 366546945] [facility] 1972 00:00:00 Screening for malignant neoplasm of colon (procedure) [code = 053969122] [facility] 1972 00:00:00 Sigmoidoscopy [code = Sigmoidoscopy] [facility] 1972 00:00:00 Screening for malignant neoplasm of breast (procedure) [code = 987377722] [facility] 1972 00:00:00 CT Colonography (combo) [code = CT Colonography (combo)] [facility] 1972 00:00:00 Screening for malignant neoplasm of colon (procedure) [code = 400056340] [facility] 1972 00:00:00 Screening for malignant neoplasm of colon (procedure) [code = 765484063] [facility] 1972 00:00:00 Screening for malignant neoplasm of colon (procedure) [code = 776196216] [facility] 1972 00:00:00 Screening for malignant neoplasm of colon (procedure) [code = 466918410] [facility] 1972 00:00:00 Sigmoidoscopy [code = Sigmoidoscopy] [facility] 1972 00:00:00 Screening for malignant neoplasm of breast (procedure) [code = 795522721] [facility] 1972 00:00:00 CT Colonography (combo) [code = CT Colonography (combo)] [facility] 1972 00:00:00 Screening for malignant neoplasm of colon (procedure) [code = 676864766] [facility] 1972 00:00:00 Screening for malignant neoplasm of colon (procedure) [code = 743777692] [facility] 1972 00:00:00 Screening for malignant neoplasm of colon (procedure) [code = 742533229] [facility] 1972 00:00:00 Screening for malignant neoplasm of colon (procedure) [code = 052670160] [facility] 1972 00:00:00 Sigmoidoscopy [code = Sigmoidoscopy] [facility] 1972 00:00:00 Screening for malignant neoplasm of breast (procedure) [code = 625663405] [facility] 1972 00:00:00 CT Colonography (combo) [code = CT Colonography (combo)] [facility] 1972 00:00:00 Screening for malignant neoplasm of colon (procedure) [code = 118325472] [facility] 1972 00:00:00 Screening for malignant neoplasm of colon (procedure) [code = 247106916] [facility] 1972 00:00:00 Screening for malignant neoplasm of colon (procedure) [code = 617615663] [facility] 1972 00:00:00 Screening for malignant neoplasm of colon (procedure) [code = 400563590] [facility] 1972 00:00:00 Sigmoidoscopy [code = Sigmoidoscopy] [facility] 1972 00:00:00 Screening for malignant neoplasm of breast (procedure) [code = 051804600] [facility] 1972 00:00:00 CT Colonography (combo) [code = CT Colonography (combo)] [facility] 1972 00:00:00 Screening for malignant neoplasm of colon (procedure) [code = 699135189] [facility] 1972 00:00:00 Screening for malignant neoplasm of colon (procedure) [code = 697672447] [facility] 1972 00:00:00 Screening for malignant neoplasm of colon (procedure) [code = 504251690] [facility] 1972 00:00:00 Screening for malignant neoplasm of colon (procedure) [code = 726763821] [facility] 1972 00:00:00 Sigmoidoscopy [code = Sigmoidoscopy] [facility] 1972 00:00:00 Screening for malignant neoplasm of breast (procedure) [code = 203183949] [facility] Test 1972 00:00:00 CT Colonography (combo) [code = CT Colonography (combo)] [facility] 1972 00:00:00 Screening for malignant neoplasm of colon (procedure) [code = 150917125] [facility] 1972 00:00:00 Screening for malignant neoplasm of colon (procedure) [code = 001462296] [facility] 1972 00:00:00 Screening for malignant neoplasm of colon (procedure) [code = 194899722] [facility] 1972 00:00:00 Screening for malignant neoplasm of colon (procedure) [code = 505263284] [facility] Test 1972 00:00:00 Screening for malignant neoplasm of breast (procedure) [code = 695141913] [facility] Test 1972 00:00:00 CT Colonography (combo) [code = CT Colonography (combo)] [facility] Test 1972 00:00:00 Sigmoidoscopy [code = Sigmoidoscopy] [facility] 1972 00:00:00 Screening for malignant neoplasm of colon (procedure) [code = 525803514] [facility] 1972 00:00:00 Screening for malignant neoplasm of colon (procedure) [code = 674083600] [facility] Test 1972 00:00:00 Screening for malignant neoplasm of colon (procedure) [code = 031666368] [facility] Test 1972 00:00:00 Screening for malignant neoplasm of colon (procedure) [code = 514714814] [facility] Test 1972 00:00:00 Sigmoidoscopy [code = Sigmoidoscopy] [facility] Test 1972 00:00:00 Screening for malignant neoplasm of breast (procedure) [code = 366651192] [facility] Test 1972 00:00:00 CT Colonography (combo) [code = CT Colonography (combo)] [facility] 1972 00:00:00 Screening for malignant neoplasm of colon (procedure) [code = 236237968] [facility] Test 1972 00:00:00 Screening for malignant neoplasm of colon (procedure) [code = 486229224] [facility] Test 1972 00:00:00 Screening for malignant neoplasm of colon (procedure) [code = 594313827] [facility] 1972 00:00:00 Screening for malignant neoplasm of colon (procedure) [code = 666730977] [facility] 1972 00:00:00 Sigmoidoscopy [code = Sigmoidoscopy] [facility] 1972 00:00:00 Screening for malignant neoplasm of breast (procedure) [code = 086207676] [facility] 1972 00:00:00 CT Colonography (combo) [code = CT Colonography (combo)] [facility] 1972 00:00:00 Screening for malignant neoplasm of colon (procedure) [code = 170791275] [facility] Test 1972 00:00:00 Screening for malignant neoplasm of colon (procedure) [code = 236271079] [facility] 1972 00:00:00 Screening for malignant neoplasm of colon (procedure) [code = 444583064] [facility] 1972 00:00:00 Screening for malignant neoplasm of colon (procedure) [code = 095225804] [facility] Test 1972 00:00:00 Sigmoidoscopy [code = Sigmoidoscopy] [facility] 1972 00:00:00 Screening for malignant neoplasm of breast (procedure) [code = 439800839] [facility] 1972 00:00:00 CT Colonography (combo) [code = CT Colonography (combo)] [facility] 1972 00:00:00 Screening for malignant neoplasm of colon (procedure) [code = 651928278] [facility] 1972 00:00:00 Screening for malignant neoplasm of colon (procedure) [code = 002708805] [facility] 1972 00:00:00 Screening for malignant neoplasm of colon (procedure) [code = 618035396] [facility] 1972 00:00:00 Screening for malignant neoplasm of colon (procedure) [code = 278958242] [facility] 1972 00:00:00 Sigmoidoscopy [code = Sigmoidoscopy] [facility] 1972 00:00:00 Screening for malignant neoplasm of breast (procedure) [code = 258983569] [facility] 1972 00:00:00 CT Colonography (combo) [code = CT Colonography (combo)] [facility] 1972 00:00:00 Screening for malignant neoplasm of colon (procedure) [code = 407497622] [facility] 1972 00:00:00 Screening for malignant neoplasm of colon (procedure) [code = 388648066] [facility] 1972 00:00:00 Screening for malignant neoplasm of colon (procedure) [code = 349726175] [facility] 1972 00:00:00 Screening for malignant neoplasm of colon (procedure) [code = 223690643] [facility] 1972 00:00:00 Sigmoidoscopy [code = Sigmoidoscopy] [facility] 1972 00:00:00 Screening for malignant neoplasm of breast (procedure) [code = 512801186] [facility] 1972 00:00:00 CT Colonography (combo) [code = CT Colonography (combo)] [facility] 1972 00:00:00 Screening for malignant neoplasm of colon (procedure) [code = 795663042] [facility] 1972 00:00:00 Screening for malignant neoplasm of colon (procedure) [code = 241748057] [facility] 1972 00:00:00 Screening for malignant neoplasm of colon (procedure) [code = 789166848] [facility] 1972 00:00:00 Screening for malignant neoplasm of colon (procedure) [code = 162611771] [facility] 1972 00:00:00 Sigmoidoscopy [code = Sigmoidoscopy] [facility] 1972 00:00:00 Screening for malignant neoplasm of breast (procedure) [code = 771040056] [facility] 1972 00:00:00 CT Colonography (combo) [code = CT Colonography (combo)] [facility] 1972 00:00:00 Screening for malignant neoplasm of colon (procedure) [code = 587439768] [facility] 1972 00:00:00 Screening for malignant neoplasm of colon (procedure) [code = 162342542] [facility] 1972 00:00:00 Screening for malignant neoplasm of breast (procedure) [code = 199790779] [facility] 1972 00:00:00 Screening for malignant neoplasm of colon (procedure) [code = 270443971] [facility] 1972 00:00:00 CT Colonography (combo) [code = CT Colonography (combo)] [facility] 1972 00:00:00 Screening for malignant neoplasm of colon (procedure) [code = 992826565] [facility] 1972 00:00:00 Screening for malignant neoplasm of colon (procedure) [code = 518534504] [facility] 1972 00:00:00 Screening for malignant neoplasm of colon (procedure) [code = 128471305] [facility] 1972 00:00:00 Screening for malignant neoplasm of colon (procedure) [code = 788081934] [facility] 1972 00:00:00 Sigmoidoscopy [code = Sigmoidoscopy] [facility] 1972 00:00:00 Screening for malignant neoplasm of colon (procedure) [code = 292304446] [facility] 1972 00:00:00 Sigmoidoscopy [code = Sigmoidoscopy] [facility] 1972 00:00:00 Screening for malignant neoplasm of breast (procedure) [code = 010376049] [facility] 1972 00:00:00 CT Colonography (combo) [code = CT Colonography (combo)] [facility] 1972 00:00:00 Screening for malignant neoplasm of colon (procedure) [code = 522740912] [facility] 1972 00:00:00 Screening for malignant neoplasm of colon (procedure) [code = 983776101] [facility] 1972 00:00:00 Screening for malignant neoplasm of colon (procedure) [code = 837491292] [facility] 1972 00:00:00 Screening for malignant neoplasm of colon (procedure) [code = 467590781] [facility] 1972 00:00:00 Sigmoidoscopy [code = Sigmoidoscopy] [facility] 1972 00:00:00 Screening for malignant neoplasm of breast (procedure) [code = 661897673] [facility] 1972 00:00:00 CT Colonography (combo) [code = CT Colonography (combo)] [facility] 1972 00:00:00 Screening for malignant neoplasm of colon (procedure) [code = 942039013] [facility] 1972 00:00:00 Screening for malignant neoplasm of colon (procedure) [code = 742092165] [facility] 1972 00:00:00 Screening for malignant neoplasm of colon (procedure) [code = 805399625] [facility] 1972 00:00:00 Screening for malignant neoplasm of colon (procedure) [code = 013038640] [facility] 1972 00:00:00 Sigmoidoscopy [code = Sigmoidoscopy] [facility] 1972 00:00:00 Screening for malignant neoplasm of breast (procedure) [code = 015626003] [facility] 1972 00:00:00 CT Colonography (combo) [code = CT Colonography (combo)] [facility] 1972 00:00:00 Screening for malignant neoplasm of colon (procedure) [code = 484833345] [facility] 1972 00:00:00 Screening for malignant neoplasm of colon (procedure) [code = 413210000] [facility] 1972 00:00:00 Screening for malignant neoplasm of colon (procedure) [code = 172552302] [facility] Test 1972 00:00:00 Screening for malignant neoplasm of colon (procedure) [code = 957115902] [facility] 1972 00:00:00 Sigmoidoscopy [code = Sigmoidoscopy] [facility] 1972 00:00:00 Screening for malignant neoplasm of breast (procedure) [code = 718480930] [facility] 1972 00:00:00 CT Colonography (combo) [code = CT Colonography (combo)] [facility] 1972 00:00:00 Screening for malignant neoplasm of colon (procedure) [code = 811716130] [facility] 1972 00:00:00 Screening for malignant neoplasm of colon (procedure) [code = 741327193] [facility] 1972 00:00:00 Screening for malignant neoplasm of colon (procedure) [code = 744925789] [facility] 1972 00:00:00 Screening for malignant neoplasm of colon (procedure) [code = 976612467] [facility] 1972 00:00:00 Sigmoidoscopy [code = Sigmoidoscopy] [facility] 1972 00:00:00 Screening for malignant neoplasm of breast (procedure) [code = [id number]] [facility] Test 1972 00:00:00 CT Colonography (combo) [code = CT Colonography (combo)] [facility] 1972 00:00:00 Screening for malignant neoplasm of colon (procedure) [code = 158590725] [facility] 1972 00:00:00 Screening for malignant neoplasm of colon (procedure) [code = 925154587] [facility] Test 1972 00:00:00 Screening for malignant neoplasm of colon (procedure) [code = 751420371] [facility] Test 1972 00:00:00 Screening for malignant neoplasm of colon (procedure) [code = 217191358] [facility] Test 1972 00:00:00 Sigmoidoscopy [code = Sigmoidoscopy] [facility] 1972 00:00:00 Screening for malignant neoplasm of breast (procedure) [code = 521563910] [facility] Test 1972 00:00:00 CT Colonography (combo) [code = CT Colonography (combo)] [facility] Test 1972 00:00:00 Screening for malignant neoplasm of colon (procedure) [code = 890391468] [facility] Test 1972 00:00:00 Screening for malignant neoplasm of colon (procedure) [code = 759841661] [facility] Test 1972 00:00:00 Screening for malignant neoplasm of colon (procedure) [code = 531227630] [facility] Test 1972 00:00:00 Screening for malignant neoplasm of colon (procedure) [code = 687248135] [facility] Test 1972 00:00:00 Sigmoidoscopy [code = Sigmoidoscopy] [facility] Test 1972 00:00:00 Screening for malignant neoplasm of breast (procedure) [code = 806915582] [facility] Test 1972 00:00:00 CT Colonography (combo) [code = CT Colonography (combo)] [facility] Test 1972 00:00:00 Screening for malignant neoplasm of colon (procedure) [code = 918848121] [facility] Test 1972 00:00:00 Screening for malignant neoplasm of colon (procedure) [code = 678965376] [facility] Test 1972 00:00:00 Screening for malignant neoplasm of colon (procedure) [code = 467458885] [facility] Test 1972 00:00:00 Screening for malignant neoplasm of colon (procedure) [code = 224472321] [facility] Test 1972 00:00:00 Sigmoidoscopy [code = Sigmoidoscopy] [facility] Test 1972 00:00:00 Screening for malignant neoplasm of breast (procedure) [code = 990156906] [facility] Test 1972 00:00:00 CT Colonography (combo) [code = CT Colonography (combo)] [facility] Test 1972 00:00:00 Screening for malignant neoplasm of colon (procedure) [code = 740933709] [facility] Test 1972 00:00:00 Screening for malignant neoplasm of colon (procedure) [code = 238524087] [facility] Test 1972 00:00:00 Screening for malignant neoplasm of colon (procedure) [code = 932640324] [facility] Test 1972 00:00:00 Screening for malignant neoplasm of colon (procedure) [code = 165950240] [facility] Test 1972 00:00:00 Sigmoidoscopy [code = Sigmoidoscopy] [facility] Test 1972 00:00:00 Screening for malignant neoplasm of breast (procedure) [code = 284154284] [facility] Test 1972 00:00:00 CT Colonography (combo) [code = CT Colonography (combo)] [facility] Test 1972 00:00:00 Screening for malignant neoplasm of colon (procedure) [code = 425030854] [facility] Test 1972 00:00:00 Screening for malignant neoplasm of colon (procedure) [code = 200898714] [facility] Test 1972 00:00:00 Screening for malignant neoplasm of colon (procedure) [code = 977381284] [facility] Test 1972 00:00:00 Screening for malignant neoplasm of colon (procedure) [code = 441485599] [facility] Test 1972 00:00:00 Sigmoidoscopy [code = Sigmoidoscopy] [facility] Test 1972 00:00:00 Screening for malignant neoplasm of breast (procedure) [code = 525800549] [facility] Test 1972 00:00:00 CT Colonography (combo) [code = CT Colonography (combo)] [facility] Test 1972 00:00:00 Screening for malignant neoplasm of colon (procedure) [code = 977960706] [facility] Test 1972 00:00:00 Screening for malignant neoplasm of colon (procedure) [code = 392499178] [facility] Test 1972 00:00:00 Screening for malignant neoplasm of colon (procedure) [code = 216358449] [facility] Test 1972 00:00:00 Screening for malignant neoplasm of colon (procedure) [code = 847482681] [facility] Test 1972 00:00:00 Sigmoidoscopy [code = Sigmoidoscopy] [facility] Test 1972 00:00:00 Screening for malignant neoplasm of breast (procedure) [code = 457622150] [facility] Test 1972 00:00:00 CT Colonography (combo) [code = CT Colonography (combo)] [facility] Test 1972 00:00:00 Screening for malignant neoplasm of colon (procedure) [code = 759628268] [facility] Test 1972 00:00:00 Screening for malignant neoplasm of breast (procedure) [code = 323643364] [facility] Test 1972 00:00:00 CT Colonography (combo) [code = CT Colonography (combo)] [facility] Test 1972 00:00:00 Screening for malignant neoplasm of colon (procedure) [code = 389928715] [facility] Test 1972 00:00:00 Screening for malignant neoplasm of colon (procedure) [code = 607314386] [facility] Test 1972 00:00:00 Screening for malignant neoplasm of colon (procedure) [code = 563182949] [facility] Test 1972 00:00:00 Screening for malignant neoplasm of colon (procedure) [code = 637484693] [facility] Test 1972 00:00:00 Sigmoidoscopy [code = Sigmoidoscopy] [facility] Test 1972 00:00:00 Screening for malignant neoplasm of colon (procedure) [code = 395032158] [facility] Test 1972 00:00:00 Screening for malignant neoplasm of colon (procedure) [code = 477232127] [facility] Sched[facility] Test 1972 00:00:00 Screening for malignant neoplasm of colon (procedure) [code = 907097881] [facility] Test 1972 00:00:00 Sigmoidoscopy [code = Sigmoidoscopy] [facility] Test 1972 00:00:00 Screening for malignant neoplasm of breast (procedure) [code = 478999356] [facility] Test 1972 00:00:00 CT Colonography (combo) [code = CT Colonography (combo)] [facility] Test 1972 00:00:00 Screening for malignant neoplasm of colon (procedure) [code = 240909942] [facility] Test 1972 00:00:00 Screening for malignant neoplasm of colon (procedure) [code = 073901973] [facility] Test 1972 00:00:00 Screening for malignant neoplasm of colon (procedure) [code = 230956476] [facility] Test 1972 00:00:00 Screening for malignant neoplasm of colon (procedure) [code = 038549109] [facility] Test 1972 00:00:00 Sigmoidoscopy [code = Sigmoidoscopy] [facility] Test 1972 00:00:00 Screening for malignant neoplasm of breast (procedure) [code = 287633842] [facility] Test 1972 00:00:00 CT Colonography (combo) [code = CT Colonography (combo)] [facility] Test 1972 00:00:00 Screening for malignant neoplasm of colon (procedure) [code = 005575701] [facility] Test 1972 00:00:00 Screening for malignant neoplasm of colon (procedure) [code = 000662122] [facility] Test 1972 00:00:00 Screening for malignant neoplasm of colon (procedure) [code = 111097648] [facility]uled Test 1972 00:00:00 Screening for malignant neoplasm of colon (procedure) [code = 587763526] [facility] Test 1972 00:00:00 Sigmoidoscopy [code = Sigmoidoscopy] [facility] Test 1972 00:00:00 Screening for malignant neoplasm of breast (procedure) [code = 342223655] [facility]uled Test 1972 00:00:00 CT Colonography (combo) [code = CT Colonography (combo)] [facility] Test 1972 00:00:00 Screening for malignant neoplasm of colon (procedure) [code = 203105983] [facility] Test 1972 00:00:00 Screening for malignant neoplasm of colon (procedure) [code = 953893799] [facility] Test 1972 00:00:00 Screening for malignant neoplasm of colon (procedure) [code = 888478929] [facility] Test 1972 00:00:00 Screening for malignant neoplasm of colon (procedure) [code = 201434745] [facility]uled Test 1972 00:00:00 Sigmoidoscopy [code = Sigmoidoscopy] [facility] Test 1972 00:00:00 Screening for malignant neoplasm of breast (procedure) [code = 864872040] [facility] Test 1972 00:00:00 CT Colonography (combo) [code = CT Colonography (combo)] [facility] Test 1972 00:00:00 Screening for malignant neoplasm of colon (procedure) [code = 262327379] [facility] Test 1972 00:00:00 Screening for malignant neoplasm of colon (procedure) [code = 975402759] [facility] Test 1972 00:00:00 Screening for malignant neoplasm of colon (procedure) [code = 279658099] [facility] Test 1972 00:00:00 Screening for malignant neoplasm of colon (procedure) [code = 567432658] [facility] Test 1972 00:00:00 Sigmoidoscopy [code = Sigmoidoscopy] [facility] Test 1972 00:00:00 Screening for malignant neoplasm of breast (procedure) [code = 689543779] [facility] Test 1972 00:00:00 CT Colonography (combo) [code = CT Colonography (combo)] [facility] Test 1972 00:00:00 Screening for malignant neoplasm of colon (procedure) [code = 212106021] [facility] Test 1972 00:00:00 Screening for malignant neoplasm of colon (procedure) [code = 066782937] [facility] Test 1972 00:00:00 Screening for malignant neoplasm of colon (procedure) [code = 930255332] [facility] Test 1972 00:00:00 Screening for malignant neoplasm of colon (procedure) [code = 764478342] [facility] Test 1972 00:00:00 Sigmoidoscopy [code = Sigmoidoscopy] [facility] Scheduled Test 1972 00:00:00 Screening for malignant neoplasm of breast (procedure) [code = 447830128] [facility] Test 1972 00:00:00 CT Colonography (combo) [code = CT Colonography (combo)] [facility] Test 1972 00:00:00 Screening for malignant neoplasm of colon (procedure) [code = 789781705] [facility] Sched[facility] Test 1972 00:00:00 Screening for malignant neoplasm of colon (procedure) [code = 665978327] [facility] Scheduled Test 1972 00:00:00 Screening for malignant neoplasm of colon (procedure) [code = 675965483] [facility] Scheduled Test 1972 00:00:00 Screening for malignant neoplasm of colon (procedure) [code = 417510343] [facility] Scheduled Test 1972 00:00:00 Sigmoidoscopy [code = Sigmoidoscopy] [facility] Scheduled Test 1972 00:00:00 Screening for malignant neoplasm of breast (procedure) [code = 740845105] [facility] Scheduled Test 1972 00:00:00 CT Colonography (combo) [code = CT Colonography (combo)] [facility] Test 1972 00:00:00 Screening for malignant neoplasm of colon (procedure) [code = 559923550] [facility] Test 1972 00:00:00 Screening for malignant neoplasm of colon (procedure) [code = 187448454] [facility] Scheduled Test 1972 00:00:00 Screening for malignant neoplasm of colon (procedure) [code = 447489693] [facility] Scheduled Test 1972 00:00:00 Screening for malignant neoplasm of colon (procedure) [code = 316326560] [facility] Scheduled Test 1972 00:00:00 Sigmoidoscopy [code = Sigmoidoscopy] [facility] Scheduled Test 1972 00:00:00 Screening for malignant neoplasm of breast (procedure) [code = 363249195] [facility] Scheduled Test 1972 00:00:00 CT Colonography (combo) [code = CT Colonography (combo)] [facility] Scheduled Test 1972 00:00:00 Screening for malignant neoplasm of colon (procedure) [code = 969121598] [facility] Scheduled Test 1972 00:00:00 Screening for malignant neoplasm of colon (procedure) [code = 486284258] [facility] Scheduled Test 1972 00:00:00 Screening for malignant neoplasm of colon (procedure) [code = 381947521] [facility] Scheduled Test 1972 00:00:00 Screening for malignant neoplasm of colon (procedure) [code = 561570189] [facility] Scheduled Test 1972 00:00:00 Sigmoidoscopy [code = Sigmoidoscopy] [facility] Scheduled Test 1972 00:00:00 Screening for malignant neoplasm of breast (procedure) [code = 296393513] [facility] Scheduled Test 1972 00:00:00 CT Colonography (combo) [code = CT Colonography (combo)] [facility] Scheduled Test 1972 00:00:00 Screening for malignant neoplasm of colon (procedure) [code = 801158216] [facility] Scheduled Test 1972 00:00:00 Screening for malignant neoplasm of colon (procedure) [code = 403621611] [facility] Scheduled Test 1972 00:00:00 Screening for malignant neoplasm of colon (procedure) [code = 809474027] [facility]uled Test 1972 00:00:00 Screening for malignant neoplasm of colon (procedure) [code = 743946069] [facility] Scheduled Test 1972 00:00:00 Sigmoidoscopy [code = Sigmoidoscopy] [facility] Scheduled Test 1972 00:00:00 Screening for malignant neoplasm of breast (procedure) [code = 020935762] [facility] Scheduled Test 1972 00:00:00 CT Colonography (combo) [code = CT Colonography (combo)] [facility] Test 1972 00:00:00 Screening for malignant neoplasm of colon (procedure) [code = 432198766] [facility] Scheduled Test 1972 00:00:00 Screening for malignant neoplasm of colon (procedure) [code = 012947560] [facility] Scheduled Test 1972 00:00:00 Screening for malignant neoplasm of colon (procedure) [code = 478546075] [facility] Scheduled Test 1972 00:00:00 Screening for malignant neoplasm of colon (procedure) [code = 594949717] [facility] Scheduled Test 1972 00:00:00 Sigmoidoscopy [code = Sigmoidoscopy] [facility] Scheduled Test 1972 00:00:00 Screening for malignant neoplasm of breast (procedure) [code = 769673337] [facility] Scheduled Test 1972 00:00:00 CT Colonography (combo) [code = CT Colonography (combo)] [facility] Scheduled Test 1972 00:00:00 Screening for malignant neoplasm of colon (procedure) [code = 833658813] [facility] Test 1972 00:00:00 Screening for malignant neoplasm of colon (procedure) [code = 796871839] [facility] Scheduled Test 1972 00:00:00 Screening for malignant neoplasm of colon (procedure) [code = 583787397] [facility] Scheduled Test 1972 00:00:00 Screening for malignant neoplasm of colon (procedure) [code = 565149294] [facility] Scheduled Test 1972 00:00:00 Sigmoidoscopy [code = Sigmoidoscopy] [facility] Scheduled Test 1972 00:00:00 Screening for malignant neoplasm of breast (procedure) [code = 916837231] [facility] Scheduled Test 1972 00:00:00 CT Colonography (combo) [code = CT Colonography (combo)] [facility]uled Test 1972 00:00:00 Screening for malignant neoplasm of colon (procedure) [code = 476768865] [facility] Scheduled Test 1972 00:00:00 Screening for malignant neoplasm of colon (procedure) [code = 671793006] [facility] Scheduled Test 1972 00:00:00 Screening for malignant neoplasm of colon (procedure) [code = 131175219] [facility] Scheduled Test 1972 00:00:00 Screening for malignant neoplasm of colon (procedure) [code = 315244790] [facility] Scheduled Test 1972 00:00:00 Sigmoidoscopy [code = Sigmoidoscopy] [facility] Scheduled Test 1972 00:00:00 Screening for malignant neoplasm of breast (procedure) [code = 415186355] [facility] Scheduled Test 1972 00:00:00 CT Colonography (combo) [code = CT Colonography (combo)] [facility] Scheduled Test 1972 00:00:00 Screening for malignant neoplasm of colon (procedure) [code = 194553717] [facility] Scheduled Test 1972 00:00:00 Screening for malignant neoplasm of colon (procedure) [code = 440975684] [facility] Scheduled Test 1972 00:00:00 Screening for malignant neoplasm of colon (procedure) [code = 293525558] [facility] Scheduled Test 1972 00:00:00 Screening for malignant neoplasm of colon (procedure) [code = 742845595] [facility] Scheduled Test 1972 00:00:00 Sigmoidoscopy [code = Sigmoidoscopy] [facility] Scheduled Test 1972 00:00:00 Screening for malignant neoplasm of breast (procedure) [code = 403013714] [facility] Scheduled Test 1972 00:00:00 CT Colonography (combo) [code = CT Colonography (combo)] [facility] Scheduled Test 1972 00:00:00 Screening for malignant neoplasm of colon (procedure) [code = 721597306] [facility] Scheduled Test 1972 00:00:00 Screening for malignant neoplasm of colon (procedure) [code = 398593346] [facility] Scheduled Test 1972 00:00:00 Screening for malignant neoplasm of colon (procedure) [code = 321068159] [facility] Scheduled Test 1972 00:00:00 Screening for malignant neoplasm of colon (procedure) [code = 898523503] [facility] Scheduled Test 1972 00:00:00 Sigmoidoscopy [code = Sigmoidoscopy] [facility] Goal Plan of Care Not e [code = 11026-8] Goal Plan of Care Not e [code = 36920-5] Goal Plan of Care Not e [code = 87042-0] Goal Plan of Care Not e [code = 02022-9] Goal Plan of Care Not e [code = 03993-8] Goal Plan of Care Not e [code = 19640-3] Goal Plan of Care Not e [code = 00576-9] Goal Plan of Care Not e [code = 21746-7] Goal Plan of Care Not e [code = 92770-4] Goal Plan of Care Not e [code = 92117-5] Goal Plan of Care Not e [code = 84238-0] Goal Plan of Care Not e [code = 06580-3] Goal Plan of Care Not e [code = 78153-8] Goal Plan of Care Not e [code = 18410-9] Goal Plan of Care Not e [code = 26720-7] Goal Plan of Care Not e [code = 67015-1] Goal Plan of Care Not e [code = 81934-5] Goal Plan of Care Not e [code = 67134-3] Goal Plan of Care Not e [code = 10428-2] Goal Plan of Care Not e [code = 28881-7] Goal Plan of Care Not e [code = 11128-7] Goal Plan of Care Not e [code = 76186-9] Goal Plan of Care Not e [code = 91022-1] Goal Plan of Care Not e [code = 76865-3] Goal Plan of Care Not e [code = 05182-2] Goal Plan of Care Not e [code = 44950-1] Goal Plan of Care Not e [code = 62216-2] Goal Plan of Care Not e [code = 26224-8] Goal Plan of Care Not e [code = 23550-8] Goal Plan of Care Not e [code = 60458-7] Goal Plan of Care Not e [code = 04457-3] Goal Plan of Care Not e [code = 00328-7] Goal Plan of Care Not e [code = 13531-6] Goal Plan of Care Not e [code = 17723-2] Goal Plan of Care Not e [code = 25647-3] Encounters Start Date/Time End Date/Time Encounter Type Admission Type Attending [facility] Care Department Encounter ID Source 2023-09-07 10:11:03 Inpatient [facility] [id number] [facility] 2023-09-05 10:08:27 Inpatient [facility] [id number] [facility] 2023-09-05 10:05:12 Inpatient [facility] [id number] [facility] 2023-09-04 04:51:30 Inpatient [facility] [id number] [facility] 2023-09-04 04:14:55 Inpatient [facility] [id number] [facility] 2023-09-04 03:08:45 Inpatient [facility] [id number] [facility] 2023-09-04 02:36:28 Inpatient [facility] [id number] [facility] 2023-06-16 09:32:36 Inpatient AYDEE DICKENS [facility] [id number] [facility] 2023-06-16 09:32:09 Inpatient [facility]YDEE DICKENS [facility] [id number] [facility] 2023-06-16 09:31:53 Inpatient AYDEE DICKENS [facility] [id number] [facility] 2023-06-14 07:46:02 Inpatient AYDEE DICKENS [facility] [id number] [facility] 2023-06-14 07:39:22 Inpatient NICOLETTE ARIAYDEE Galan [facility] [id number] [facility] 2023-06-14 06:38:38 Inpatient AYDEE DICKENS [facility] [id number] [facility] 2023-06-13 13:44:18 Inpatient CARA MURPHY [facility] [id number] [facility] 2023-06-13 11:45:24 Inpatient AYDEE DICKENS [facility] [id number] [facility] 2023-05-08 11:21:00 Outpatient EL ADAM GARCIA [facility] Surgery [id number] [facility] 2023-04-01 14:26:29 Inpatient [facility] [id number] [facility] 2023-03-31 09:24:52 Inpatient ER MARIAH ALDRIDGE [facility] [id number] [facility] 2021-05-20 18:48:04 Emergency [facility] [id number] [facility] 2021-05-20 12:43:40 Emergency [facility] [id number] [facility] 2023-11-12 15:15:00 2023-11-12 15:15:00 Outpatient GUSTAVO DELANEY [id number] [facility] 2023-11-10 09:30:00 2023-11-10 09:30:00 Outpatient MYLA MIJARES CYNTHIA [facility] [id number] [facility] 2023-10-22 00:00:00 2023-10-22 00:00:00 Outpatient PREZABenjaminHALINAGUSTAVOERICKSON MT[facility] [id number] [facility] 2023-10-16 11:10:00 2023-10-16 11:10:00 Outpatient SIDDHARTH STANFORD [id number] [facility] 2023-10-15 00:00:00 2023-10-15 00:00:00 Out[id number] [facility] 00:00:00 2023-10-15 00:00:00 Outpatient MINDYSHY CYNTHIA [facility] [id number] [facility] 2023-10-15 00:00:00 2023-10-15 00:00:00 Outpatient GUILLENSHY PIERCE [facility] [id number] [facility] 2023-10-06 10:45:00 2023-10-06 10:45:00 Outpatient SARAI JULES [id number] [facility] 2023-10-05 11:30:00 2023-10-05 11:30:00 Outpatient PREZAGUSTAVO Alexander [id number] [facility] 2023-10-01 00:00:00 2023-10-01 00:00:00 Outpatient PREZAS, GUSTAVO MT[facility] [id number] [facility] 2023-09-30 14:15:00 2023-09-30 14:15:00 Outpatient PREZASGUSTAVO [id number] [facility] 2023-09-24 00:00:00 2023-09-24 00:00:00 Outpatient PREZAGUSTAVO Alexander [id number] [facility] 2023-09-23 00:00:00 2023-09-23 00:00:00 Outpatient TIFFANY PUENTE [id number] [facility] 2023-09-22 00:00:00 2023-09-22 00:00:00 Outpatient GUSTAVO DELANEY CYNTHIA [id number] [facility] 2023-09-22 00:00:00 2023-09-22 00:00:00 Outpatient SHY GUILLEN CYNTHIA [id number] [facility] 2023-09-16 00:00:00 2023-09-16 00:00:00 Outpatient GUSTAVO DELANEY CYNTHIA [id number] [facility] 2023-09-16 00:00:00 2023-09-16 00:00:00 Outpatient GUSTAVO DELANEY CYNTHIA [id number] [facility] 2023-09-16 00:00:00 2023-09-16 00:00:00 Outpatient [facility]USTAV[facility] DELANEY [facility] [id number] [facility] 00:00:00 2023-09-14 00:00:00 Outpatient SHY GUILLEN CYNTHIA [id number] [facility] 2023-09-14 00:00:00 2023-09-14 00:00:00 Outpatient SHY GUILLEN CYNTHIA CYNTHIA [id number] [facility] 2023-09-11 11:00:00 2023-09-11 11:00:00 Outpatient YONATAN LORENZO CYNTHIA MTZ [id number] [facility] 2023-09-09 00:00:00 2023-09-09 00:00:00 Outpatient CYNTHIA MTZ [id number] [facility] 2023-09-04 00:14:00 2023-09-08 10:51:00 Hospital Encounter London Berry, Selin Welch Maria [facility] [id number] [facility] 2023-09-04 00:14:00 2023-09-08 10:51:00 Inpatient ER SELIN FERRER [facility] Neurosurger y [id number] [facility] 2023-09-07 18:41:43 2023-09-07 18:41:43 Outpatient SELIN MANE SLE [id number] [facility] 2023-09-03 20:52:00 2023-09-03 23:44:00 emergency [facility] [id number] 2023-09-03 20:52:00 2023-09-03 23:44:00 Emergency ER JUANY GRE[facility] [id number] [facility] 2023-09-02 00:00:00 2023-09-02 00:00:00 Outpatient TIFFANY PUENTE [id number] [facility] 2023-09-01 15:30:00 2023-09-01 15:30:00 Outpatient DEMETRIUS TOBAR [id number] [facility] 2023-08-19 00:00:00 2023-08-19 00:00:00 [facility] [id number] [facility] 2023-08-13 00:00:00 2023-08-13 00:00:00 Orders Only Ketan Monet [facility] [id number] [facility] 2023-08-12 13:49:00 2023-08-12 16:12:00 Emergency X BRIAN BRYAN DEKEVIN ERT [id number] [facility] 2023-08-12 13:49:00 2023-08-12 16:12:00 Emergency Brian Bryan [facility] 1.2.840.114 350.1.13.10 4.2.7.2.686 [id number] [facility] 2023-06-13 03:43:00 2023-06-16 19:45:00 Hospital Encounter ER Cara Burgess Sahar [facility] [id number] [facility] 2023-06-13 03:43:00 2023-06-16 19:45:00 Inpatient ER AYDEE GO [facility] Internal Med [id number] [facility] 2023-06-15 00:00:00 2023-06-15 00:00:00 Orders Only System, Provider Not In [facility] [id number] [facility] 2023-06-13 16:30:06 2023-06-13 16:30:06 Outpatient AYDEE DICKENS [facility] [id number] [facility] 2023-06-13 00:00:00 2023-06-13 00:00:00 Orders Only [facility] [id number] [facility] 2023-06-13 00:00:00 2023-06-13 00:00:00 Travel [facility] [id number] [facility] 2023-06-12 00:00:00 2023-06-12 00:00:00 Telephone Dallas Gomez [facility] [id number] [facility] 2023-05-28 06:45:00 2023-06-04 17:36:00 Hospital Encounter NICOLETTE JoseYumikoverna Joshi [facility] [id number] [facility] 2023-05-28 06:45:00 2023-06-04 17:36:00 Inpatient NICOLETTE [facility]SE [facility] [id number] [facility] 2023-06-01 09:10:00 2023-06-01 13:00:00 Anesthesia Event Harry Newsome Mujtaba Ahmad [facility] [id number] [facility] 2023-06-01 09:00:00 2023-06-01 11:30:00 Surgery Jose Adam Joshi [facility] [id number] [facility] 2023-06-01 09:47:57 2023-06-01 09:47:57 Outpatient NICOLETTE GARCIA [facility] [id number] [facility] 2023-06-01 09:40:34 2023-06-01 09:40:34 Outpatient NICOLETTE GARCIAYUMIKOIN [facility] [id number] [facility] 2023-05-31 09:25:55 2023-05-31 23:59:00 Inpatient ADAM BRANTLEY SLE [id number] [facility] 2023-05-31 09:00:00 2023-05-31 23:59:00 Hospital Encounter Adam Garcia [facility] [id number] [facility] 2023-05-28 18:15:29 2023-05-28 18:15:29 Outpatient ADAM BRANTLEY SLE [id number] [facility] 2023-05-28 08:30:00 2023-05-28 11:54:00 Anesthesia Event Yue Bui [facility] [id number] [facility] 2023-05-28 11:41:14 2023-05-28 11:41:14 Outpatient ADAM BRANTLEY SLE [id number] [facility] 2023-05-28 08:30:00 2023-05-28 11:00:00 Surgery Adam Garcia [facility] [id number] [facility] 2023-05-28 10:00:47 2023-05-28 10:00:47 Outpatient ADAM BRANTLEY SLE [id number] [facility] 2023-05-28 00:00:00 2023-05-28 00:00:00 Travel [facility] [id number] [facility] 2023-05-26 09:00:00 2023-05-26 09:00:00 Hospital Encounter Adam Garcia [facility] [id number] [facility] 2023-05-26 00:00:00 2023-05-26 00:00:00 Outpatient ADAM BRANTLEY SLE [id number] [facility] 2023-05-26 00:00:00 2023-05-26 00:00:00 Outpatient NICOLETTE LIPSCOMB SLE [id number] [facility] 2023-05-26 00:00:00 2023-05-26 00:00:00 Travel [facility] [id number] [facility] 2023-05-13 11:43:03 2023-05-13 11:43:03 Outpatient [facility] [id number] Adria Martínez 2023-05-12 00:00:00 2023-05-12 00:00:00 Orders Only Adam Garcia [facility] [id number] [facility] 2023-05-08 14:11:21 2023-05-08 14:11:21 Outpatient [facility] [id number] Adria Martínez 2023-03-29 19:25:00 2023-04-02 20:48:00 Hospital Encounter ER Connie Davey, Mariah Lozoya, Thomas Hopkins [facility] [id number] [facility] 2023-03-29 19:25:00 2023-04-02 20:48:00 Inpatient ER THOMAS LOZOYA [facility] [id number] [facility] 2023-03-31 08:32:56 2023-03-31 00:00:00 Inpatient ER MARIAH ALDRIDGE SLERigoberto [facility] [id number] [facility] 2023-03-30 10:24:12 2023-03-30 23:59:00 Outpatient ER CONNIE DAVEY SLERigoberto SLE [id number] [facility] 2023-03-30 09:40:00 2023-03-30 23:59:00 Hospital Encounter Connie Davey [facility] [id number] [facility] 2023-03-30 13:46:20 2023-03-30 13:46:20 Outpatient ER MARIAH ALDRIDGE SLEH [facility] [id number] [facility] 2023-03-30 13:46:14 2023-03-30 13:46:14 Outpatient ER MARIAH ALDRIDGE SLERigoberto SLE [id number] [facility] 2023-03-30 10:24:04 2023-03-30 10:24:04 Outpatient ER CONNIE DAVEY SLEH SLEH [id number] [facility] 2023-03-30 00:00:00 2023-03-30 00:00:00 Orders Only [facility] [id number] [facility] 2023-03-30 00:00:00 2023-03-30 00:00:00 Travel [facility] [id number] [facility] 2022-12-11 08:56:00 2022-12-11 15:29:00 Emergency X Alfonso ALVARADO [facility] ERT [id number] [facility] 2022-12-11 08:56:00 2022-12-11 15:29:00 Emergency Alfonso Alvarado Lorelei [facility] 1.2.840.114 350.1.13.10 4.2.7.2.686 [id number] [facility] 2022-11-17 17:25:00 2022-11-18 01:19:00 Emergency X ÁNGELARITCHIE SANDOVAL [facility] ERT [id number] [facility] 2022-11-17 17:25:00 2022-11-18 01:19:00 Emergency Ritchie Warren E [facility] 1.2.840.114 350.1.13.10 4.2.7.2.686 [id number] [facility] 2022-08-28 00:00:00 2022-08-28 00:00:00 Patient Outreach Shy BeckmanJono BENAVIDES 1.2.840.114 350.1.13.10 4.2.7.2.686 [id number] [facility] 2022-08-20 00:00:00 2022-08-20 00:00:00 Patient Outreach Shy BeckmanJono MAGUIRECHRISTIAN 1.2.840.114 350.1.13.10 4.2.7.2.686 [id number] [facility] 2022-08-02 17:30:00 2022-08-03 14:29:00 Outpatient ER PARRISH WHEATLEY [facility] Neurology [id number] [facility] 2022-08-02 17:30:00 2022-08-03 14:29:00 Hospital Encounter Halima Guan, Jen Parrish Harris [facility] [id number] [facility] 2022-08-03 00:00:00 2022-08-03 00:00:00 Orders Only [facility] [id number] [facility] 2022-08-02 00:00:00 2022-08-02 00:00:00 Travel [facility] [id number] [facility] 2022-07-31 11:42:00 2022-08-01 21:48:00 Inpatient Valeria LORENZA LOWRY [facility] [id number] [facility] 2022-07-31 11:42:00 2022-08-01 21:48:00 Hospital Encounter Michele RondonLorenza Porter [facility] 1.2.840.114 350.1.13.10 4.2.7.2.686 [id number] [facility] 2022-08-01 00:00:00 2022-08-01 00:00:00 Transition of Care Maria Teresa Nicole 1.2.840.114 350.1.13.10 4.2.7.2.686 [id number] [facility] 2022-07-28 14:41:38 2022-07-28 14:41:[address] [facility] 9 Adria Martínez 2022-07-28 00:00:00 2022-07-28 00:00:00 Outpatient Visit [id number] 2022-07-24 13:24:40 2022-07-24 13:24:40 Outpatient SFA BHARAT 5 Adria Martínez 2022-05-23 14:51:01 2022-05-23 14:51:[address] [facility] [id number] Adria Martínez 2022-05-23 00:00:00 2022-05-23 00:00:00 Outpatient Visit [id number] 2022-05-04 20:22:00 2022-05-08 14:44:00 [facility] [id number] [facility] 2022-05-04 20:22:00 2022-05-08 14:44:00 Emergency Briner, Brandyn [facility] 1.0.114 350.1.13.10 4.2.7.2.686 [id number] [facility] 2022-04-13 13:06:00 2022-04-15 15:00:00 Inpatient X [facility] [id number] [facility] 2022-04-13 13:06:00 2022-04-15 15:00:00 Hospital Encounter Sapna Vargas [facility] 1..114 350.1.13.10 4.2.7.2.686 [id number] [facility] 2022-02-19 10:20:00 2022-02-19 10:30:00 Imm/Inj Visit Santos, [place] Jose Santiago [facility] 1..114 350.1.13.10 4.2.7.2.686 [id number] [facility] 2022-02-19 10:20:00 2022-02-19 10:20:00 Outpatient R JOSE PAK [facility] [id number] [facility] 2021-11-23 15:07:00 2021-11-23 17:03:00 Emergency X JORJE VIRKDAVIDMich [facility] ERT [id number] [facility] 2021-11-23 15:07:00 2021-11-23 17:03:00 Emergency Sav Rondon AjNichelle simmons [facility] 1.0.114 350.1.13.10 4.2.7.2.686 [id number] [facility] 2021-11-21 09:40:00 2021-11-21 09:40:00 Outpatient R [facility] [id number] [facility] 2021-05-24 09:30:00 2021-05-24 09:30:00 Outpatient R PASHA [facility] [id number] [facility] 2021-05-24 08:47:51 2021-05-24 08:57:51 Imm/Inj Visit Vaccine, [place] Dangelo Pak [facility] 1..114 350.1.13.10 4.2.7.2.686 [id number] [facility] 2021-05-03 09:40:00 2021-05-03 09:59:35 Outpatient R JOSE PAK [facility] [id number] [facility] 2021-05-03 09:17:43 2021-05-03 09:59:35 Imm/Inj Visit Vaccine, [place] Dangelo Pak [facility] 1..114 350.1.13.10 4.2.7.2.686 [id number] [facility] 2021-04-16 00:00:00 2021-04-16 00:00:00 Orders Only Doctor Unassigned, [place] [facility] 1.840.114 350.1.13.10 4.2.7.2.686 [id number] [facility] 2021-03-17 00:00:00 2021-03-17 00:00:[address] [facility] 1.284.114 350.1.13.10 4.2.7.2.686 [id number] [facility] 2021-03-16 20:08:00 2021-03-16 23:24:00 Emergency Palmer Fabrice [facility] 1.2.114 350.1.13.10 4.2.7.2.686 [id number] [facility] 2021-03-14 18:59:34 2021-03-14 20:19:13 Urgent Care Lydia Desouza Unknown, Attending [facility] 1.84.114 350.1.13.10 4.2.7.2.686 [id number] [facility] 2021-03-14 19:00:00 2021-03-14 19:00:00 Outpatient R UNKNOWN, ATTENDING [facility] [id number] [facility] 2021-02-19 10:49:00 2021-02-19 14:48:00 Emergency Anali Monroy [facility] 1.84.114 350.1.13.10 4.2.7.2.686 [id number] [facility] 2019-03-09 00:00:00 2019-03-09 00:00:00 Yehuda Zimmerman [facility] 1.840.114 350.1.13.10 4.2.7.2.686 [id number] 2019-03-09 00:00:00 2019-03-09 00:00:00 [facility] 1.84.114 350.1.13.10 4.2.7.2.686 [id number] [facility] Results Test Description Test Time Test Comments Results Result Co mments Source BLOOD [id number] 07:00:10* Test Item Value Reference Range Interpretation Comme nts CULTURE (BEAKER) (test code = 1095) No growth in 5 days XR KNEE 3 VIEWS [id number] 09:27:00 [facility] 1970 Sex: FXR KNEE 3 VIEWS LEFT CLINICAL INDICATION: S/p fall COMPARISON: NoneFINDINGS: 3views of the left knee.There is no fracture or malalignment. The femorotibial andfemoropatellar joint spaces are intact.No joint fluid is demonstrated.Surrounding soft tissues are unremarkable. Scattered atheroscleroticvascular calcifications.IMPRESSION: No acute fracture or malalignment of the knee Electronically Signed By: Maxim Sultana09/08/2023 09:29 CDTWorkstation Name: [id number] [id number] 08:53:50* Test Item Value Reference Range Interpretation Comme nts POC-Glucose Meter (test code = 1538) 101 mg/dL 70-110 : TESTED AT [facility] [address] [facility], [address]: Land Leveler/Zipper Measurer ID = [id number] for Marie Delacruz Lab Interpretation (test code = 19211-0) [facility] [id number] 08:53:50* Test Item Value Reference Range Interpretation Comme nts POC-Glucose Meter (test code = 1538) 101 mg/dL 70-110 : TESTED AT [address], [address]: Land Leveler/Zipper Measurer ID = [id number] for Umeh, [place] Lab Interpretation (test code = 07180-2) [facility] [id number] 08:53:50* Test Item Value Reference Range Interpretation Comme nts POC-Glucose Meter (test code = 1538) 101 mg/dL 70-110 : TESTED AT [address], [address]: Land Leveler/Zipper Measurer ID = [id number] for Umeh, [place] Lab Interpretation (test code = 74956-7) [facility] [id number] 08:53:50* Test Item Value Reference Range Interpretation Comme nts POC-Glucose Meter (test code = 1538) 101 mg/dL 70-110 : TESTED AT [address], [address]: Land Leveler/Zipper Measurer ID = [id number] for Umeh, [place] Lab Interpretation (test code = 88149-7) [facility] [id number] 08:53:50* Test Item Value Reference Range Interpretation Comme nts POC-Glucose Meter (test code = 1538) 101 mg/dL 70-110 : TESTED AT [address], [address]: Land Leveler/Zipper Measurer ID = [id number] for Umeh, [place] Lab Interpretation (test code = 82081-5) [facility] [id number] 08:53:50* Test Item Value Reference Range Interpretation Comme nts POC-Glucose Meter (test code = 1538) 101 mg/dL 70-110 : TESTED AT [address], [address]: Land Leveler/Zipper Measurer ID = [id number] for Umeh, [place] Lab Interpretation (test code = 50457-6) [facility] [id number] 08:53:50* Test Item Value Reference Range Interpretation Comme nts POC-Glucose Meter (test code = 1538) 101 mg/dL 70-110 : TESTED AT [address], [address]: Land Leveler/Zipper Measurer ID = [id number] for Umeh, [place] Lab Interpretation (test code = 94590-0) [facility] [id number] 08:53:50* Test Item Value Reference Range Interpretation Comme nts POC-Glucose Meter (test code = 1538) 101 mg/dL 70-110 : TESTED AT [place] [id number] [facility], [address]: Land Leveler/Zipper Measurer ID = [id number] for Umeh, [place] Lab Interpretation (test code = 46917-7) [facility] [id number] 08:53:50* Test Item Value Reference Range Interpretation Comme nts POC-Glucose Meter (test code = 1538) 101 mg/dL 70-110 : TESTED AT [address], [address]: Land Leveler/Zipper Measurer ID = [id number] for Umeh, [place] Lab Interpretation (test code = 58736-3) Normal [facility]-GLUCOSE [id number] 08:53:50* Test Item Value Reference Range Interpretation Comme nts POC-GLUCOSE METER (BEAKER) (test code = 1538) 101 mg/dL 70-110 : TESTED AT [address], [address]: Land Leveler/Zipper Measurer ID = [id number] for Umeh, [place] BASIC METABOLIC [id number] 05:40:45* Test Item Value Reference Range Interpretation [...] GFR is not applicable for dialysis patients Land Leveler ID - [id number] 05:40:45* Test Item Value Reference Range Interpretation Comme nts MAGNESIUM (BEAKER) (test cod e = 627) 2.1 mg/dL 1.6-2.6 Land Leveler ID - [id number] 05:40:45* Test Item Value Reference Range Interpretation Comme nts PHOSPHORUS (BEAKER) (test co de = 604) 5.0 mg/dL 2.3-4.7 H Land Leveler ID - [id number] W/PLT COUNT & AUTO [id number] 04:49:23* Test Item Value Reference Range Interpretation [...] code = 2801) 0.40 % 0.00-1.00 POCT-GLUCOSE [id number] 21:40:23* Test Item Value Reference Range Interpretation Comme nts POC-GLUCOSE METER (BEAKER) (test code = 1538) 144 mg/dL 70-110 H : TESTED AT [facility] [address] [place] [address], [address]: Land Leveler/Zipper Measurer ID = [id number] for Diana Baeza [id number] 04:05:54* Test Item Value Reference Range Interpretation Comme nts MAGNESIUM (BEAKER) (test code = 627) 2.0 mg/dL 1.6-2.6 Specimen sligh tly hemolyzed Land Leveler ID - MADELINE GFYUYNJRDVJ7349-20-57 04:05:54* Test Item Value Reference Range Interpretation Comme nts PHOSPHORUS (BEAKER) (test code = 604) 4.5 mg/dL 2.3-4.7 Specimen sligh tly hemolyzed Land Leveler ID - MADELINE WBASIC METABOLIC [id number] 04:05:54* Test Item Value Reference Range Interpretation [...] GFR is not applicable for dialysis patients Land Leveler ID - MADELINE WCBC W/PLT COUNT & AUTO [id number] 03:40:48* Test Item Value Reference Range Interpretation [...] code = 2801) 0.30 % 0.00-1.00 POCT-GLUCOSE [id number] 21:28:35* Test Item Value Reference Range Interpretation Comme nts POC-GLUCOSE METER (BEAKER) (test code = 1538) 127 mg/dL 70-110 H : TESTED AT [facility] [address] [facility], [address]: Land Leveler/Zipper Measurer ID = [id number] for Ryan Morin POCT-GLUCOSE [id number] 18:49:21* Test Item Value Reference Range Interpretation Comme nts POC-GLUCOSE METER (BEAKER) (test code = 1538) 122 mg/dL 70-110 H : TESTED AT [facility] [address] [facility], [address]: Land Leveler/Zipper Measurer ID = [id number] for Lauren Santillan POCT-GLUCOSE [id number] 13:27:27* Test Item Value Reference Range Interpretation Comme nts POC-GLUCOSE METER (BEAKER) (test code = 1538) 130 mg/dL 70-110 H : TESTED AT [facility] [address] [facility], [address]: Land Leveler/Zipper Measurer ID = [id number] for Lauren Santillan [id number] 09:09:14* Test Item Value Reference Range Interpretation Comme nts MAGNESIUM (BEAKER) (test cod e = 627) 2.2 mg/dL 1.6-2.6 [id number] 09:09:14* Test Item Value Reference Range Interpretation Comme nts PHOSPHORUS (BEAKER) (test co de = 604) 4.8 mg/dL 2.3-4.7 H BASIC METABOLIC [id number] 09:09:14* Test Item Value Reference Range Interpretation [...] is not applicable for dialysis patients POCT-GLUCOSE [id number] 08:33:30* Test Item Value Reference Range Interpretation Comme nts POC-GLUCOSE METER (BEAKER) (test code = 1538) 132 mg/dL 70-110 H : TESTED AT [facility] [address] [facility], [address]: Land Leveler/Zipper Measurer ID = [id number] for Lauren Santillan CBC W/PLT COUNT & AUTO [id number] 05:47:59* Test Item Value Reference Range Interpretation [...] code = 2801) 0.40 % 0.00-1.00 POCT-GLUCOSE [id number] 21:35:37* Test Item Value Reference Range Interpretation Comme nts POC-GLUCOSE METER (BEAKER) (test code = 1538) 129 mg/dL 70-110 H : TESTED AT [facility] [address] [facility], [address]: Land Leveler/Zipper Measurer ID = [id number] for Ryan Morin MR BRAIN WITH & WITHOUT IV [id number] 15:49:58 [facility] : 1970 Sex: [...] MRI of the brain.Electronically Signed By: Zeinab Jjosczsw70/17/2024 15:53 CDTWorkstation Name: [id number] METER 2023-09-05 08:34:25* Test Item Value Reference Range Interpretation Comme nts POC-GLUCOSE METER (BEAKER) (test code = 1538) 115 mg/dL 70-110 H : TESTED AT [facility] [address] [facility], [address]: Land Leveler/Zipper Measurer ID = [id number] for DOMINGA AMADOR BASIC METABOLIC [id number] 06:06:56* Test Item Value Reference Range Interpretation [...] GFR is not applicable for dialysis patients Land Leveler ID - [id number] 06:06:56* Test Item Value Reference Range Interpretation Comme nts MAGNESIUM (BEAKER) (test cod e = 627) 2.2 mg/dL 1.6-2.6 Land Leveler ID - [id number] 06:06:56* Test Item Value Reference Range Interpretation Comme nts PHOSPHORUS (BEAKER) (test co de = 604) 3.8 mg/dL 2.3-4.7 Land Leveler ID - ADMINCBC W/PLT COUNT & AUTO [id number] 05:29:32* Test Item Value Reference Range Interpretation [...] code = 2801) 0.50 % 0.00-1.00 POCT-GLUCOSE [id number] 04:55:18* Test Item Value Reference Range Interpretation Comme nts POC-GLUCOSE METER (BEAKER) (test code = 1538) 99 mg/dL 70-110 : TESTED AT [facility] [address] [facility], [address]: Land Leveler/Zipper Measurer ID = [id number] for Rosa Morinn POCT-GLUCOSE [id number] 21:49:23* Test Item Value Reference Range Interpretation Comme nts POC-GLUCOSE METER (BEAKER) (test code = 1538) 124 mg/dL 70-110 H : TESTED AT [place] [id number] [facility], [address]: Land Leveler/Zipper Measurer ID = [id number] for Rosa Morinn POCT-GLUCOSE [id number] 15:55:53* Test Item Value Reference Range Interpretation Comme nts POC-GLUCOSE METER (BEAKER) (test code = 1538) 126 mg/dL 70-110 H : TESTED AT [facility] [address] [facility], [address]: Land Leveler/Zipper Measurer ID = [id number] for Tramaine Daniels [id number] 12:37:56* Test Item Value Reference Range Interpretation Comme nts PROCALCITONIN (BEAKER) (test code = 3036) < ng/mL <0.05 SEPSIS RISK (ng/mL)Low: 0.05-0.50Intermediate: 0.51-2.00High: >=2.01SARS- CoV2/Influenza/RSV [id number] 12:18:09* Test Item Value Reference Range Interpretation Comments SARS-COV2/RT-PCR (test code = 41012-4) Negative Negative The SARS-CoV-2 target nucleic acids [...] provider. Influenza A RT-PCR (test code = 74525-1) Negative Negative The Flu A target nucleic acids are not detected in this specimen. Influenza B RT-PCR (test code = 28583-9) Negative Negative The Flu B target nucleic acids are not detected in this specimen. RSV by RT-PCR (test code = 34304-8) Negative Negative The RSV target nucleic acids [...] the Act. Fact Sheet for Healthcare Providers:https://w [employer]/Docu ments/Xpert%20Xpres s%20SARS%20CoV-2/Fa ct%20Sheets/302-390 2%74WRIM-SNT-3%20HE ALTHCARE%20PROVIDER S%20FACT%20SHEET.pd f Fact Sheet for Healthcare Patients:https://ww evOLED/Docum ents/Xpert%20Xpress %20SARS%20Cov-2/Fac t%20Sheets/302-3801 %55JEME-CEG-5%20PAT IENT%20FACT%20SHEET .pdf Lab Interpretation (test code = 52703-1) [facility] [id number] 12:18:09* Test Item Value Reference Range Interpretation Comments SARS-COV2/RT-PCR (test code = 71152-4) Negative Negative The SARS-CoV-2 target nucleic acids [...] provider. Influenza A RT-PCR (test code = 52987-0) Negative Negative The Flu A target nucleic acids are not detected in this specimen. Influenza B RT-PCR (test code = 14693-4) Negative Negative The Flu B target nucleic acids are not detected in this specimen. RSV by RT-PCR (test code = 22163-2) Negative Negative The RSV target nucleic acids [...] the Act. Fact Sheet for Healthcare Providers:https://w [employer]/Docu ments/Xpert%20Xpres s%20SARS%20CoV-2/Fa ct%20Sheets/302-390 2%22HRCK-PSM-6%20HE ALTHCARE%20PROVIDER S%20FACT%20SHEET.pd f Fact Sheet for Healthcare Patients:https://maria elena evOLED/Docum ents/Xpert%20Xpress %20SARS%20Cov-2/Fac t%20Sheets/302-3801 %15WBOO-DOY-5%20PAT IENT%20FACT%20SHEET .pdf Lab Interpretation (test code = 82835-2) [facility] [id number] 12:18:09* Test Item Value Reference Range Interpretation Comments SARS-COV2/RT-PCR (test code = 28502-1) Negative Negative The SARS-CoV-2 target nucleic acids [...] provider. Influenza A RT-PCR (test code = 32754-8) Negative Negative The Flu A target nucleic acids are not detected in this specimen. Influenza B RT-PCR (test code = 81674-6) Negative Negative The Flu B target nucleic acids are not detected in this specimen. RSV by RT-PCR (test code = 47766-7) Negative Negative The RSV target nucleic acids [...] the Act. Fact Sheet for Healthcare Providers:https://w [employer]/Docu ments/Xpert%20Xpres s%20SARS%20CoV-2/Fa ct%20Sheets/302-390 2%85PDMR-UYQ-0%20HE ALTHCARE%20PROVIDER S%20FACT%20SHEET.pd f Fact Sheet for Healthcare Patients:https://Wagon/Docum ents/Xpert%20Xpress %20SARS%20Cov-2/Fac t%20Sheets/302-3801 %63XGIF-ENG-8%20PAT IENT%20FACT%20SHEET .pdf Lab Interpretation (test code = 91393-6) [facility] [id number] 12:18:09* Test Item Value Reference Range Interpretation Comments SARS-COV2/RT-PCR (test code = 54227-1) Negative Negative The SARS-CoV-2 target nucleic acids [...] provider. Influenza A RT-PCR (test code = 25858-2) Negative Negative The Flu A target nucleic acids are not detected in this specimen. Influenza B RT-PCR (test code = 63543-0) Negative Negative The Flu B target nucleic acids are not detected in this specimen. RSV by RT-PCR (test code = 68581-2) Negative Negative The RSV target nucleic acids [...] the Act. Fact Sheet for Healthcare Providers:https://w ww.[employer]/Docu ments/Xpert%20Xpres s%20SARS%20CoV-2/Fa ct%20Sheets/302-390 2%41ALIE-AEX-5%20HE ALTHCARE%20PROVIDER S%20FACT%20SHEET.pd f Fact Sheet for Healthcare Patients:https://ww w.[employer]/Docum ents/Xpert%20Xpress %20SARS%20Cov-2/Fac t%20Sheets/3023801 %89KXDH-ZRL-0%20PAT IENT%20FACT%20SHEET .pdf Lab Interpretation (test code = 60946-3) [facility]V [id number] 12:18:09* Test Item Value Reference Range Interpretation Comments SARS-COV2/RT-PCR (test code = 15442-6) Negative Negative The SARS-CoV-2 target nucleic acids [...] provider. Influenza A RT-PCR (test code = 49841-2) Negative Negative The Flu A target nucleic acids are not detected in this specimen. Influenza B RT-PCR (test code = 26537-4) Negative Negative The Flu B target nucleic acids are not detected in this specimen. RSV by RT-PCR (test code = 34290-3) Negative Negative The RSV target nucleic acids [...] the Act. Fact Sheet for Healthcare Providers:https://w [employer]/Docu ments/Xpert%20Xpres s%20SARS%20CoV-2/Fa ct%20Sheets/302-390 2%61IBFP-EHH-9%20HE ALTHCARE%20PROVIDER S%20FACT%20SHEET.pd f Fact Sheet for Healthcare Patients:https://Wagon/Docum ents/Xpert%20Xpress %20SARS%20Cov-2/Fac t%20Sheets/302-3801 %28RXPH-BFA-0%20PAT IENT%20FACT%20SHEET .pdf Lab Interpretation (test code = 14251-6) [facility]V [id number] 12:18:09* Test Item Value Reference Range Interpretation Comments SARS-COV2/RT-PCR (test code = 19596-6) Negative Negative The SARS-CoV-2 target nucleic acids [...] provider. Influenza A RT-PCR (test code = 98890-7) Negative Negative The Flu A target nucleic acids are not detected in this specimen. Influenza B RT-PCR (test code = 59274-6) Negative Negative The Flu B target nucleic acids are not detected in this specimen. RSV by RT-PCR (test code = 68039-5) Negative Negative The RSV target nucleic acids [...] the Act. Fact Sheet for Healthcare Providers:https://w [employer]/Docu ments/Xpert%20Xpres s%20SARS%20CoV-2/Fa ct%20Sheets/302-390 2%88OFFD-BNJ-8%20HE ALTHCARE%20PROVIDER S%20FACT%20SHEET.pd f Fact Sheet for Healthcare Patients:https://ww evOLED/Docum ents/Xpert%20Xpress %20SARS%20Cov-2/Fac t%20Sheets/302-3801 %87SQOL-SRE-9%20PAT IENT%20FACT%20SHEET .pdf Lab Interpretation (test code = 44814-4) [facility] [id number] 12:18:09* Test Item Value Reference Range Interpretation Comments SARS-COV2/RT-PCR (test code = 27228-3) Negative Negative The SARS-CoV-2 target nucleic acids [...] provider. Influenza A RT-PCR (test code = 94047-8) Negative Negative The Flu A target nucleic acids are not detected in this specimen. Influenza B RT-PCR (test code = 74581-9) Negative Negative The Flu B target nucleic acids are not detected in this specimen. RSV by RT-PCR (test code = 83217-2) Negative Negative The RSV target nucleic acids [...] the Act. Fact Sheet for Healthcare Providers:https://w [employer]/Docu ments/Xpert%20Xpres s%20SARS%20CoV-2/Fa ct%20Sheets/302-390 2%81XUIX-UCS-3%20HE ALTHCARE%20PROVIDER S%20FACT%20SHEET.pd f Fact Sheet for Healthcare Patients:https://maria elena evOLED/Docum ents/Xpert%20Xpress %20SARS%20Cov-2/Fac t%20Sheets/302-3801 %66XPGB-YCX-1%20PAT IENT%20FACT%20SHEET .pdf Lab Interpretation (test code = 71847-5) [facility] [id number] 12:18:09* Test Item Value Reference Range Interpretation Comments SARS-COV2/RT-PCR (test code = 25973-1) Negative Negative The SARS-CoV-2 target nucleic acids [...] provider. Influenza A RT-PCR (test code = 08023-9) Negative Negative The Flu A target nucleic acids are not detected in this specimen. Influenza B RT-PCR (test code = 32626-4) Negative Negative The Flu B target nucleic acids are not detected in this specimen. RSV by RT-PCR (test code = 17566-8) Negative Negative The RSV target nucleic acids [...] of the Act. Fact Sheet for Healthcare Providers:https://[employer]/Docu ments/Xpert%20Xpres s%20SARS%20CoV-2/Fa ct%20Sheets/302-390 2%83WZWD-PLP-9%20HE ALTHCARE%20PROVIDER S%20FACT%20SHEET.pd f Fact Sheet for Healthcare Patients:https://Wagon/Docum ents/Xpert%20Xpress %20SARS%20Cov-2/Fac t%20Sheets/302-3801 %96AGSD-HVU-5%20PAT IENT%20FACT%20SHEET .pdf Lab Interpretation (test code = 99865-0) [facility] [id number] 12:18:09* Test Item Value Reference Range Interpretation Comments SARS-COV2/RT-PCR (test code = 20903-8) Negative Negative The SARS-CoV-2 target nucleic acids [...] provider. Influenza A RT-PCR (test code = 21038-5) Negative Negative The Flu A target nucleic acids are not detected in this specimen. Influenza B RT-PCR (test code = 22707-6) Negative Negative The Flu B target nucleic acids are not detected in this specimen. RSV by RT-PCR (test code = 30031-6) Negative Negative The RSV target nucleic acids [...] the Act. Fact Sheet for Healthcare Providers:https://w ww.[employer]/Docu ments/Xpert%20Xpres s%20SARS%20CoV-2/Fa ct%20Sheets/302-390 2%51LYBG-PQA-6%20HE ALTHCARE%20PROVIDER S%20FACT%20SHEET.pd f Fact Sheet for Healthcare Patients:https://ww w.[employer]/Docum ents/Xpert%20Xpress %20SARS%20Cov-2/Fac t%20Sheets/302-3801 %27HAJL-MJL-5%20PAT IENT%20FACT%20SHEET .pdf Lab Interpretation (test code = 88561-2) [facility]RSV [id number] 12:18:09* Test Item Value Reference Range Interpretation Comme nts SARS-COV2/RT-PCR (test code = 7987219) Negative Negative The SARS-CoV-2 t arget nucleic [...] provider. INFLUENZA A RT-PCR (test code = 9535206) Negative Negative The Flu A target nucleic acids are not detected in this specimen. INFLUENZA B RT-PCR (test code = 3079781) Negative Negative The Flu B target nucleic acids are not detected in this specimen. RSV RT-PCR (test code = 8041944) Negative Negative The RSV target n ucleic [...] 564(g) of the Act.Fact Sheet for Healthcare Providers:https://www.[employer]/Documents/Xpert%20Xpress%20SARS%20CoV-2/Fact%2 0eets/3023902%86VJML-HGO-8%20HEALTHCARE%20PROVIDERS%20FACT%20SHEET.pdfFact Sheet for Healthcare Patients:https://ww w.[employer]/Documents/Xpert%20Xpress%20SARS%20Cov-2/Fact%20Sheets/302-3801%20S ARS-COV-2%20PATIENT%20FACT%20SHEET.pdfPOCT-GLUCOSE QWIPQ0943-64-13 11:08:35* Test Item Value Reference Range Interpretation Comme nts POC-GLUCOSE METER (BEAKER) (test code = 1538) 111 mg/dL 70-110 H : TESTED AT [facility] [address] [facility], [address]: Land Leveler/Zipper Measurer ID = [id number] for JeremiahTramaine POCT-GLUCOSE [id number] 08:16:42* Test Item Value Reference Range Interpretation Comme nts POC-GLUCOSE METER (BEAKER) (test code = 1538) 108 mg/dL 70-110 : TESTED AT [facility] [address] [place] [place], [address]: Land Leveler/Zipper Measurer ID = [id number] for Beata Vargas MR CERVICAL SPINE WITHOUT IV [id number] 07:58:49 [facility] 1970 Sex: FMR [...] spine.Posterior ligament ossifications at the calcifications at A63-T59rabxtlf moderate spinal canal stenosisPosterior disc osteophyte at the T11-T12 level causing mild spinal canalstenosisThe spinal cord is normal in caliber and signal intensity. There is no significant foraminal or spinal canal stenosis.2.1 x 2.3 cm left adrenal nodule, incompletely characterizedParaspinal soft tissues are unremarkable.Lumbar spine:Postoperative changes from posterior decompression at the L3 and K6ngqruk. A 1.3 x 1.5 cm (AP by [...] Signed By: Maxim Sultana09/04/2023 08:00 CDTWorkstation Name: [id number] THORACIC SPINE WITHOUT IV [id number] 07:58:49 [facility] 1970 Sex: [...] spine.Posterior ligament ossifications at the calcifications at T01-O47ycwpavx moderate spinal canal stenosisPosterior disc osteophyte at the T11-T12 level causing mild spinal canalstenosisThe spinal cord is normal in caliber and signal intensity. There is no significant foraminal or spinal canal stenosis.2.1 x 2.3 cm left adrenal nodule, incompletely characterizedParaspinal soft tissues are unremarkable.Lumbar spine:Postoperative changes from posterior decompression at the L3 and J9guppkc. A 1.3 x 1.5 cm (AP by [...] Signed By: Maxim Sultana09/04/2023 08:00 CDTWorkstation Name: [id number] LUMBAR SPINE WITHOUT IV [id number] 07:58:49 [facility] : 1970 Sex: FMR [...] spine.Posterior ligament ossifications at the calcifications at S76-B35zsnuiqe moderate spinal canal stenosisPosterior disc osteophyte at the T11-T12 level causing mild spinal canalstenosisThe spinal cord is normal in caliber and signal intensity. There is no significant foraminal or spinal canal stenosis.2.1 x 2.3 cm left adrenal nodule, incompletely characterizedParaspinal soft tissues are unremarkable.Lumbar spine:Postoperative changes from posterior decompression at the L3 and L6ydwanb. A 1.3 x 1.5 cm (AP by [...] Signed By: Maxim Sultana09/04/2023 08:00 CDTWorkstation Name: [id number] 2023-09-04 07:46:14* Test Item Value Reference Range Interpretation Comme nts FERRITIN (BEAKER) (test code = 361) 31.77 ng/mL 5.00-275.00 Land Leveler ID - hgIRON, TIBC, % SAT. (WITHOUT FERRITIN)2023-09-04 07:24:52* Test Item Value Reference Range Interpretation Comme nts IRON (BEAKER) (test code = 547) 22.0 ug/dL 40.0-160.0 L TOTAL IRON BINDING CAPACITY (BEAKER) (test code = 769) 369 ug/dL 250-450 IRON % SATURATION (2) (LINNEAAKE R) (test code = 2590) 6 % 20-55 L Land Leveler ID - hgCT LUMBAR SPINE WITHOUT IV [id number] 05:42:45 [facility] 1970 Sex: FEXAM: [...] spine:Bones/alignment: Age- indeterminate nondisplaced fracture of the Q4wauloyhkz elements, predominantly i nvolving the lamina and [...] Signed By: Suzan Weaver09/04/2023 05:45 CDTWorkstation Name: [id number] THORACIC SPINE WITHOUT IV [id number] 05:42:45 [facility] 1970 Sex: FEXAM: [...] spine:Bones/alignment: Age- indeterminate nondisplaced fracture of the R2ubckhpxqm elements, predominantly i nvolving the lamina and [...] Signed By: Suzan Weaver09/04/2023 05:45 CDTWorkstation Name: [id number] 04:44:34* Test Item Value Reference Range Interpretation Comme nts FIBRINOGEN LEVEL (BEAKER) (t est code = 658) 410 mg/dl 225-434 Urinalysis without Krigrrjkels7266-40-03 03:58:52* Test Item Value Reference Range Interpretation Comme nts Color, UA (test code = 5778-6) Light Yellow Clarity, UA (test code = 5767-9) Hazy Specific [place], UA (test code = 5811-5) 1.017 1.001-1.035 pH, UA (test code = 5803-2) 6.0 5.0-8.0 Protein, UA (test code = 25060-1) 10 mg/dL Negative A Glucose, UA (test code = 365) Negative Negative Ketones, UA (test code = 2514-8) Trace Negative A Bilirubin, UA (test code = 64128-1) Negative Negative Blood, UA (test code = 60571-7) Trace Negative A Nitrite, UA (test code = 5802-4) Negative Negative Leukocytes, UA (test code = 5799-2) Negative Negative Urobilinogen, UA (test code = 80629-3) 0.2 0.2-1.0 Specimen Source (test code = 2795) LYNDSAY (test code = LYNDSAY) Land Leveler ID - [auto]Land Leveler ID - tech Lab Interpretation (test code = 53017-6) [facility] Gaimybhshul9786-05-11 03:58:52* Test Item Value Reference Range Interpretation Comme nts Color, UA (test code = 5778-6) Light Yellow Clarity, UA (test code = 5767-9) Hazy Specific [place], UA (test code = 5811-5) 1.017 1.001-1.035 pH, UA (test code = 5803-2) 6.0 5.0-8.0 Protein, UA (test code = 07980-7) 10 mg/dL Negative A Glucose, UA (test code = 365) Negative Negative Ketones, UA (test code = 2514-8) Trace Negative A Bilirubin, UA (test code = 30368-4) Negative Negative Blood, UA (test code = 39964-7) Trace Negative A Nitrite, UA (test code = 5802-4) Negative Negative Leukocytes, UA (test code = 5799-2) Negative Negative Urobilinogen, UA (test code = 42113-6) 0.2 0.2-1.0 Specimen Source (test code = 2795) LYNDSAY (test code = LYNDSAY) Land Leveler ID - [auto]Land Leveler ID - tech Lab Interpretation (test code = 24167-2) [facility] Lhyassjweto1241-76-60 03:58:52* Test Item Value Reference Range Interpretation Comme nts Color, UA (test code = 5778-6) Light Yellow Clarity, UA (test code = 5767-9) Hazy Specific [place], UA (test code = 5811-5) 1.017 1.001-1.035 pH, UA (test code = 5803-2) 6.0 5.0-8.0 Protein, UA (test code = 87019-3) 10 mg/dL Negative A Glucose, UA (test code = 365) Negative Negative Ketones, UA (test code = 2514-8) Trace Negative A Bilirubin, UA (test code = 11772-0) Negative Negative Blood, UA (test code = 57208-5) Trace Negative A Nitrite, UA (test code = 5802-4) Negative Negative Leukocytes, UA (test code = 5799-2) Negative Negative Urobilinogen, UA (test code = 55664-0) 0.2 0.2-1.0 Specimen Source (test code = 2795) LYNDSAY (test code = LYNDSAY) Land Leveler ID - [auto]Land Leveler ID - tech Lab Interpretation (test code = 78486-9) [facility] Nzpfpnkebzu4009-67-85 03:58:52* Test Item Value Reference Range Interpretation Comme nts Color, UA (test code = 5778-6) Light Yellow Clarity, UA (test code = 5767-9) Hazy Specific [place], UA (test code = 5811-5) 1.017 1.001-1.035 pH, UA (test code = 5803-2) 6.0 5.0-8.0 Protein, UA (test code = 10130-7) 10 mg/dL Negative A Glucose, UA (test code = 365) Negative Negative Ketones, UA (test code = 2514-8) Trace Negative A Bilirubin, UA (test code = 34432-0) Negative Negative Blood, UA (test code = 88245-2) Trace Negative A Nitrite, UA (test code = 5802-4) Negative Negative Leukocytes, UA (test code = 5799-2) Negative Negative Urobilinogen, UA (test code = 14770-3) 0.2 0.2-1.0 Specimen Source (test code = 2795) LYNDSAY (test code = LYNDSAY) Land Leveler ID - [auto]Land Leveler ID - tech Lab Interpretation (test code = 29829-5) [facility] Jwgwulinnzr0595-48-68 03:58:52* Test Item Value Reference Range Interpretation Comme nts Color, UA (test code = 5778-6) Light Yellow Clarity, UA (test code = 5767-9) Hazy Specific [place], UA (test code = 5811-5) 1.017 1.001-1.035 pH, UA (test code = 5803-2) 6.0 5.0-8.0 Protein, UA (test code = 68224-5) 10 mg/dL Negative A Glucose, UA (test code = 365) Negative Negative Ketones, UA (test code = 2514-8) Trace Negative A Bilirubin, UA (test code = 30537-2) Negative Negative Blood, UA (test code = 20716-4) Trace Negative A Nitrite, UA (test code = 5802-4) Negative Negative Leukocytes, UA (test code = 5799-2) Negative Negative Urobilinogen, UA (test code = 79140-9) 0.2 0.2-1.0 Specimen Source (test code = 2795) LYNDSAY (test code = LYNDSAY) Land Leveler ID - [auto]Land Leveler ID - tech Lab Interpretation (test code = 79668-7) [facility] Khwbkvpxdml1540-26-15 03:58:52* Test Item Value Reference Range Interpretation Comme nts Color, UA (test code = 5778-6) Light Yellow Clarity, UA (test code = 5767-9) Hazy Specific [place], UA (test code = 5811-5) 1.017 1.001-1.035 pH, UA (test code = 5803-2) 6.0 5.0-8.0 Protein, UA (test code = 06313-5) 10 mg/dL Negative A Glucose, UA (test code = 365) Negative Negative Ketones, UA (test code = 2514-8) Trace Negative A Bilirubin, UA (test code = 35246-8) Negative Negative Blood, UA (test code = 68525-5) Trace Negative A Nitrite, UA (test code = 5802-4) Negative Negative Leukocytes, UA (test code = 5799-2) Negative Negative Urobilinogen, UA (test code = 22451-6) 0.2 0.2-1.0 Specimen Source (test code = 2795) LYNDSAY (test code = LYNDSAY) Land Leveler ID - [auto]Land Leveler ID - tech Lab Interpretation (test code = 16515-6) [facility]normal [facility] Vgsfrgcvsrq7988-72-33 03:58:52* Test Item Value Reference Range Interpretation Comme nts Color, UA (test code = 5778-6) Light Yellow Clarity, UA (test code = 5767-9) Hazy Specific [place], UA (test code = 5811-5) 1.017 1.001-1.035 pH, UA (test code = 5803-2) 6.0 5.0-8.0 Protein, UA (test code = 36530-8) 10 mg/dL Negative A Glucose, UA (test code = 365) Negative Negative Ketones, UA (test code = 2514-8) Trace Negative A Bilirubin, UA (test code = 76063-5) Negative Negative Blood, UA (test code = 90028-0) Trace Negative A Nitrite, UA (test code = 5802-4) Negative Negative Leukocytes, UA (test code = 5799-2) Negative Negative Urobilinogen, UA (test code = 61675-9) 0.2 0.2-1.0 Specimen Source (test code = 2795) LYNDSAY (test code = LYNDSAY) Land Leveler ID - [auto]Land Leveler ID - tech Lab Interpretation (test code = 87195-1) [facility] Rwdfnetkbfg2825-63-03 03:58:52* Test Item Value Reference Range Interpretation Comme nts Color, UA (test code = 5778-6) Light Yellow Clarity, UA (test code = 5767-9) Hazy Specific [place], UA (test code = 5811-5) 1.017 1.001-1.035 pH, UA (test code = 5803-2) 6.0 5.0-8.0 Protein, UA (test code = 11654-1) 10 mg/dL Negative A Glucose, UA (test code = 365) Negative Negative Ketones, UA (test code = 2514-8) Trace Negative A Bilirubin, UA (test code = 26096-6) Negative Negative Blood, UA (test code = 63502-7) Trace Negative A Nitrite, UA (test code = 5802-4) Negative Negative Leukocytes, UA (test code = 5799-2) Negative Negative Urobilinogen, UA (test code = 87639-7) 0.2 0.2-1.0 Specimen Source (test code = 2795) LYNDSAY (test code = LYNDSAY) Land Leveler ID - [auto]Land Leveler ID - tech Lab Interpretation (test code = 56439-6) [facility] Hogpmcdvugp2395-77-17 03:58:52* Test Item Value Reference Range Interpretation Comme nts Color, UA (test code = 5778-6) Light Yellow Clarity, UA (test code = 5767-9) Hazy Specific [place], UA (test code = 5811-5) 1.017 1.001-1.035 pH, UA (test code = 5803-2) 6.0 5.0-8.0 Protein, UA (test code = 74298-8) 10 mg/dL Negative A Glucose, UA (test code = 365) Negative Negative Ketones, UA (test code = 2514-8) Trace Negative A Bilirubin, UA (test code = 65943-5) Negative Negative Blood, UA (test code = 46630-7) Trace Negative A Nitrite, UA (test code = 5802-4) Negative Negative Leukocytes, UA (test code = 5799-2) Negative Negative Urobilinogen, UA (test code = 35204-4) 0.2 0.2-1.0 Specimen Source (test code = 2795) LYNDSAY (test code = LYNDSAY) Land Leveler ID - [auto]Land Leveler ID - tech Lab Interpretation (test code = 77042-3) Abnormal [facility] Center[facility]INAL[facility] WITHOUT OOSOBNJYLYY4274-94-64 03:58:52* Test Item Value Reference Range Interpretation [...] 0.2 0.2-1.0 SOURCE(BEAKER) (test code = 2795) Land Leveler ID - [auto]Land Leveler ID - techCBC W/PLT COUNT & AUTO [...] 2801) 0.70 % 0.00-1.00 Rapid drug screen, yects5574-16-28 02:20:15* Test Item Value Reference Range Interpretation Comme nts Barbiturate Screen (test code = 84495-4) Negative Negative Benzodiazepine Screen (test code = 12117-2) Negative Negative Cocaine (Metab.) Screen (test code = 3397-7) Positive Negative A Methadone Screen (test code = 49737-9) Negative Negative Opiate Screen (test code = 74437-6) Negative Negative Cannabinoid Screen (test code = 08411-3) Positive Negative A Amph/Methamph Screen (test code = 40882-8) Negative Negative Phencyclidine Screen (test code = 06987-7) Negative Negative pH, UA (test code = 5803-2) 6.0 5.0-8.0 LYNDSAY (test code = LYNDSAY) DRUG CUTOFF CONC.Cocaine 300 ng/mL Cannabinoid 50 ng/mLBenzodiazepine 200 ng/mLBarbiturate 200 ng/mLPhencyclidine 25 ng/mLOpiate 300 ng/mLMethadone 300 ng/mLAmphetamine/ 1000 ng/mL Methamphetamine This assay provides an unconfirmed qualitative test result for the clinical management of patients in emergency situations. Chain of custody not maintained. Some zjgh-qij-qbrzjuf medications, as well as adulterants, may cause inaccurate results. Clinical correlation should be applied. A more comprehensive drug screen or confirmation of a detected drug may be performed upon request.Land Leveler ID - ADMIN Lab Interpretation (test code = 59156-8) Abnormal [facility] CenterRapid [facility] screen, klaym3951-34-37 02:20:15* Test Item Value Reference Range Interpretation Comme nts Barbiturate Screen (test code = 96617-6) Negative Negative Benzodiazepine Screen (test code = 45474-0) Negative Negative Cocaine (Metab.) Screen (test code = 3397-7) Positive Negative A Methadone Screen (test code = 83237-0) Negative Negative Opiate Screen (test code = 37748-2) Negative Negative Cannabinoid Screen (test code = 48675-8) Positive Negative A Amph/Methamph Screen (test code = 42827-1) Negative Negative Phencyclidine Screen (test code = 15699-0) Negative Negative pH, UA (test code = 5803-2) 6.0 5.0-8.0 LYNDSAY (test code = LYNDSAY) DRUG CUTOFF CONC.Cocaine 300 ng/mL Cannabinoid 50 ng/mLBenzodiazepine 200 ng/mLBarbiturate 200 ng/mLPhencyclidine 25 ng/mLOpiate 300 ng/mLMethadone 300 ng/mLAmphetamine/ 1000 ng/mL Methamphetamine This assay provides an unconfirmed qualitative test result for the clinical management of patients in emergency situations. Chain of custody not maintained. Some xkkb-yfe-bbiegao medications, as well as adulterants, may cause inaccurate results. Clinical correlation should be applied. A more comprehensive drug screen or confirmation of a detected drug may be performed upon request.Land Leveler ID - ADMIN Lab Interpretation (test code = 08561-5) [facility], [id number] 02:20:15* Test Item Value Reference Range Interpretation Comme nts Barbiturate Screen (test code = 61152-9) Negative Negative Benzodiazepine Screen (test code = 82773-3) Negative Negative Cocaine (Metab.) Screen (test code = 3397-7) Positive Negative A Methadone Screen (test code = 41177-9) Negative Negative Opiate Screen (test code = 97701-6) Negative Negative Cannabinoid Screen (test code = 52974-0) Positive Negative A Amph/Methamph Screen (test code = 22291-9) Negative Negative Phencyclidine Screen (test code = 52214-1) Negative Negative pH, UA (test code = 5803-2) 6.0 5.0-8.0 LYNDSAY (test code = LYNDSAY) DRUG CUTOFF CONC.Cocaine 300 ng/mL Cannabinoid 50 ng/mLBenzodiazepine 200 ng/mLBarbiturate 200 ng/mLPhencyclidine 25 ng/mLOpiate 300 ng/mLMethadone 300 ng/mLAmphetamine/ 1000 ng/mL Methamphetamine This assay provides an unconfirmed qualitative test result for the clinical management of patients in emergency situations. Chain of custody not maintained. Some bbjt-pzy-zshffpw medications, as well as adulterants, may cause inaccurate results. Clinical correlation should be applied. A more comprehensive drug screen or confirmation of a detected drug may be performed upon request.Land Leveler ID - ADMIN Lab Interpretation (test code = 36867-3) [facility] [id number] 02:20:15* Test Item Value Reference Range Interpretation Comme nts Barbiturate Screen (test code = 28038-2) Negative Negative Benzodiazepine Screen (test code = 30064-1) Negative Negative Cocaine (Metab.) Screen (test code = 3397-7) Positive Negative A Methadone Screen (test code = 65868-6) Negative Negative Opiate Screen (test code = 59444-7) Negative Negative Cannabinoid Screen (test code = 90815-2) Positive Negative A Amph/Methamph Screen (test code = 11214-4) Negative Negative Phencyclidine Screen (test code = 86354-5) Negative Negative pH, UA (test code = 5803-2) 6.0 5.0-8.0 LYNDSAY (test code = LYNDSAY) DRUG CUTOFF CONC.Cocaine 300 ng/mL Cannabinoid 50 ng/mLBenzodiazepine 200 ng/mLBarbiturate 200 ng/mLPhencyclidine 25 ng/mLOpiate 300 ng/mLMethadone 300 ng/mLAmphetamine/ 1000 ng/mL Methamphetamine This assay provides an unconfirmed qualitative test result for the clinical management of patients in emergency situations. Chain of custody not maintained. Some fpzh-rqi-bzmxmpi medications, as well as adulterants, may cause inaccurate results. Clinical correlation should be applied. A more comprehensive drug screen or confirmation of a detected drug may be performed upon request.Land [employer]er ID - ADMIN Lab Interpretation (test code = 62830-7) [facility] [id number] 02:20:15* Test Item Value Reference Range Interpretation Comme nts Barbiturate Screen (test code = 72026-4) Negative Negative Benzodiazepine Screen (test code = 51672-4) Negative Negative Cocaine (Metab.) Screen (test code = 3397-7) Positive Negative A Methadone Screen (test code = 04565-0) Negative Negative Opiate Screen (test code = 34831-2) Negative Negative Cannabinoid Screen (test code = 06175-8) Positive Negative A Amph/Methamph Screen (test code = 26744-4) Negative Negative Phencyclidine Screen (test code = 43946-8) Negative Negative pH, UA (test code = 5803-2) 6.0 5.0-8.0 LYNDSAY (test code = LYNDSAY) DRUG CUTOFF CONC.Cocaine 300 ng/mL Cannabinoid 50 ng/mLBenzodiazepine 200 ng/mLBarbiturate 200 ng/mLPhencyclidine 25 ng/mLOpiate 300 ng/mLMethadone 300 ng/mLAmphetamine/ 1000 ng/mL Methamphetamine This assay provides an unconfirmed qualitative test result for the clinical management of patients in emergency situations. Chain of custody not maintained. Some rwoz-wju-urzmmgg medications, as well as adulterants, may cause inaccurate results. Clinical correlation should be applied. A more comprehensive drug screen or confirmation of a detected drug may be performed upon request.Land Leveler ID - ADMIN Lab Interpretation (test code = 92060-1) [facility], [id number] 02:20:15* Test Item Value Reference Range Interpretation Comme nts Barbiturate Screen (test code = 36709-7) Negative Negative Benzodiazepine Screen (test code = 68069-6) Negative Negative Cocaine (Metab.) Screen (test code = 3397-7) Positive Negative A Methadone Screen (test code = 28170-9) Negative Negative Opiate Screen (test code = 54597-5) Negative Negative Cannabinoid Screen (test code = 75084-8) Positive Negative A Amph/Methamph Screen (test code = 53287-2) Negative Negative Phencyclidine Screen (test code = 31809-1) Negative Negative pH, UA (test code = 5803-2) 6.0 5.0-8.0 LYNDSAY (test code = LYNDSAY) DRUG CUTOFF CONC.Cocaine 300 ng/mL Cannabinoid 50 ng/mLBenzodiazepine 200 ng/mLBarbiturate 200 ng/mLPhencyclidine 25 ng/mLOpiate 300 ng/mLMethadone 300 ng/mLAmphetamine/ 1000 ng/mL Methamphetamine This assay provides an unconfirmed qualitative test result for the clinical management of patients in emergency situations. Chain of custody not maintained. Some pbce-upb-spcnwoa medications, as well as adulterants, may cause inaccurate results. Clinical correlation should be applied. A more comprehensive drug screen or confirmation of a detected drug may be performed upon request.Land Leveler ID - ADMIN Lab Interpretation (test code = 35079-5) [facility], [id number] 02:20:15* Test Item Value Reference Range Interpretation Comme nts Barbiturate Screen (test code = 61659-6) Negative Negative Benzodiazepine Screen (test code = 81675-9) Negative Negative Cocaine (Metab.) Screen (test code = 3397-7) Positive Negative A Methadone Screen (test code = 99057-7) Negative Negative Opiate Screen (test code = 28812-4) Negative Negative Cannabinoid Screen (test code = 06889-1) Positive Negative A Amph/Methamph Screen (test code = 73403-3) Negative Negative Phencyclidine Screen (test code = 91849-8) Negative Negative pH, UA (test code = 5803-2) 6.0 5.0-8.0 LYNDSAY (test code = LYNDSAY) DRUG CUTOFF CONC.Cocaine 300 ng/mL Cannabinoid 50 ng/mLBenzodiazepine 200 ng/mLBarbiturate 200 ng/mLPhencyclidine 25 ng/mLOpiate 300 ng/mLMethadone 300 ng/mLAmphetamine/ 1000 ng/mL Methamphetamine This assay provides an unconfirmed qualitative test result for the clinical management of patients in emergency situations. Chain of custody not maintained. Some sqqi-mqe-ekbxaxu medications, as well as adulterants, may cause inaccurate results. Clinical correlation should be applied. A more comprehensive drug screen or confirmation of a detected drug may be performed upon request.Land Leveler ID - ADMIN Lab Interpretation (test code = 47663-9) [facility], [id number] 02:20:15* Test Item Value Reference Range Interpretation Comme nts Barbiturate Screen (test code = 33564-4) Negative Negative Benzodiazepine Screen (test code = 81086-4) Negative Negative Cocaine (Metab.) Screen (test code = 3397-7) Positive Negative A Methadone Screen (test code = 91557-9) Negative Negative Opiate Screen (test code = 92101-5) Negative Negative Cannabinoid Screen (test code = 14077-1) Positive Negative A Amph/Methamph Screen (test code = 61206-0) Negative Negative Phencyclidine Screen (test code = 15074-8) Negative Negative pH, UA (test code = 5803-2) 6.0 5.0-8.0 LYNDSAY (test code = LYNDSAY) DRUG CUTOFF CONC.Cocaine 300 ng/mL Cannabinoid 50 ng/mLBenzodiazepine 200 ng/mLBarbiturate 200 ng/mLPhencyclidine 25 ng/mLOpiate 300 ng/mLMethadone 300 ng/mLAmphetamine/ 1000 ng/mL Methamphetamine This assay provides an unconfirmed qualitative test result for the clinical management of patients in emergency situations. Chain of custody not maintained. Some rgnv-enx-twvabmz medications, as well as adulterants, may cause inaccurate results. Clinical correlation should be applied. A more comprehensive drug screen or confirmation of a detected drug may be performed upon request.Land Leveler ID - ADMIN Lab Interpretation (test code = 41038-6) [facility], [id number] 02:20:15* Test Item Value Reference Range Interpretation Comme nts Barbiturate Screen (test code = 70544-9) Negative Negative Benzodiazepine Screen (test code = 95717-5) Negative Negative Cocaine (Metab.) Screen (test code = 3397-7) Positive Negative A Methadone Screen (test code = 48989-1) Negative Negative Opiate Screen (test code = 43164-3) Negative Negative Cannabinoid Screen (test code = 55051-5) Positive Negative A Amph/Methamph Screen (test code = 35022-5) Negative Negative Phencyclidine Screen (test code = 24167-3) Negative Negative pH, UA (test code = 5803-2) 6.0 5.0-8.0 LYNDSAY (test code = LYNDSAY) DRUG CUTOFF CONC.Cocaine 300 ng/mL Cannabinoid 50 ng/mLBenzodiazepine 200 ng/mLBarbiturate 200 ng/mLPhencyclidine 25 ng/mLOpiate 300 ng/mLMethadone 300 ng/mLAmphetamine/ 1000 ng/mL Methamphetamine This assay provides an unconfirmed qualitative test result for the clinical management of patients in emergency situations. Chain of custody not maintained. Some zirr-dct-gxopooq medications, as well as adulterants, may cause inaccurate results. Clinical correlation should be applied. A more comprehensive drug screen or confirmation of a detected drug may be performed upon request.Land Leveler ID - ADMIN Lab Interpretation (test code = 56837-5) [facility] [id number] 02:20:15* Test Item Value Reference Range Interpretation [...] situations. Chain of custody not maintained. Some ymvd-kyc-sdblqjw medications, as well as adulterants, may cause inaccurate results. Clinical correlation should be applied. A more comprehensive drug screen or confirmation of a detected drug may be performed upon request.Land [employer]er ID - ADMINB-TYPE NATRIURETIC FACTOR (BNP)2023-09-04 02:11:53* Test Item Value Reference Range Interpretation Comme nts B-TYPE NATRIURETIC PEPTIDE (BEAKER) (test code = 700) 1761 pg/mL 0-100 H [facility] [employer] ID - ADMINLACTIC ACID, [id number] 02:10:37* Test Item Value Reference Range Interpretation Comme nts LACTATE BLOOD VENOUS (2) (BEAKER) (test code = 2872) 1.04 mmol/L 0.50-2.00 Specimen slightl y hemolyzed Land [employer] ID - [id number] 02:04:37* Test Item Value Reference Range Interpretation Comme nts PHOSPHORUS (BEAKER) (test code = 604) 4.2 mg/dL 2.3-4.7 Specimen sligh tly hemolyzed [employer] ID - ADMINCOMPREHENSIVE METABOLIC [id number] 02:04:37* Test Item Value Reference Range Interpretation [...] GFR is not applicable for dialysis patients Land Leveler ID - [id number] 02:04:36* Test Item Value Reference Range Interpretation Comme nts MAGNESIUM (BEAKER) (test code = 627) 2.1 mg/dL 1.6-2.6 Specimen sligh tly hemolyzed [employer] ID - [id number] 01:45:13* Test Item Value Reference Range Interpretation [...] Test Item Value Reference Range Interpretation Commitz nts PARTIAL THROMBOPLASTIN TIME (LATOYA) (test code = 760) 28.5 seconds 22.5-36.0 PROTHROMBIN TIME/[id number] 01:42:15* Test Item Value Reference Range Interpretation Comme nts PROTIME (LATOYA) (test code = 759) 15.8 seconds 11.9-14.2 H INR (BEAKER) (test code = 370) 1.25 <=5.90 RECOMMENDED COUMADIN/WARFARIN INR THERAPY RANGESSTANDARD DOSE: 2.0 - 3.0 Includes: PROPHYLAXIS for venous thrombosis, systemic embolization; TREATMENT for venous thrombosis and/or pulmonary embolus.HIGH RISK: Target INR is 2.5-3.5 for patients with mechanical heart valves.Lactic Acid Whole [id number] 20:51:22* Test Item Value Reference Range Interpretation Comme nts LACTIC ACID (test code = 4401167883) 1.56 mmol/L 0.50-2.20 Lab Interpretation (test cod e = 76039-0) [facility] [id number] 07:00:09* Test Item Value Reference Range Interpretation Comme nts CULTURE (LINNEAAKER) (test code = 1095) No growth in 5 days BLOOD [id number] 07:00:09* Test Item Value Reference Range Interpretation Comme nts CULTURE (BEAKER) (test code = 1095) No growth in 5 days T-SPOT(R).[id number] 18:35:00* Test Item Value Reference Range Interpretation Comme nts T-SPOT.TB (test code = 0427137) Negative SeeBelow Normal Value: Ne gativeA negative [...] CORRECTED FOR NEG CONTROL (test code = 5283895) 1 PANEL B SPOT COUNT CORRECTED FOR NEG CONTROL (test code = 1975480) 0 NEGATIVE CONTROL (test code = 9908067) Passed POSITIVE CONTROL (test code = 1205931) Passed LYNDSAY (test code = LYNDSAY) [id number] [facility][id number] 18:35:00* Test Item Value Reference Range Interpretation [...] CORRECTED FOR NEG CONTROL (test code = 1300484) 0 NEGATIVE CONTROL (test code = 2523372) Passed POSITIVE CONTROL (test code = 3225195) Passed LYNDSAY (test code = LYNDSAY) [id number] [facility][id number] 18:35:00* Test Item Value Reference Range Interpretation Comme nts T-SPOT.TB (test code = 4760563) Negative SeeBelow Normal Value: Ne gativeA negative [...] 20150905) 0 NEGATIVE CONTROL (test code = 9918908) Passed POSITIVE CONTROL (test code = 20150907) Passed LYNDSAY (test code = LYNDSAY) [id number] [facility][id number] 18:35:00* Test Item Value Reference Range Interpretation [...] 20150905) 0 NEGATIVE CONTROL (test code = 0186351) Passed POSITIVE CONTROL (test code = 9990855) Passed LYNDSAY (test code = LYNDSAY) [id number] [facility][id number] 18:35:00* Test Item Value Reference Range Interpretation Comme nts T-SPOT.TB (test code = 2800417) Negative SeeBelow Normal Value: Ne gativeA negative [...] CORRECTED FOR NEG CONTROL (test code = 3183116) 1 PANEL B SPOT COUNT CORRECTED FOR NEG CONTROL (test code = 2949605) 0 NEGATIVE CONTROL (test code = 1770059) Passed POSITIVE CONTROL (test code = 3181467) Passed LYNDSAY (test code = LYNDSAY) [id number] [facility][id number] 18:35:00* Test Item Value Reference Range Interpretation Comme [facility] T-SPOT.TB (test code = 6946613) Negative SeeBelow Normal Value: Ne gativeA negative [...] CORRECTED FOR NEG CONTROL (test code = 1490298) 1 PANEL B SPOT COUNT CORRECTED FOR NEG CONTROL (test code = 3034225) 0 NEGATIVE CONTROL (test code = 5117994) Passed POSITIVE CONTROL (test code = 1905419) Passed LYNDSAY (test code = LYNDSAY) [id number] [facility][id number] 18:35:00* Test Item Value Reference Range Interpretation [...] CORRECTED FOR NEG CONTROL (test code = 3731969) 0 NEGATIVE CONTROL (test code = 6121394) Passed POSITIVE CONTROL (test code = 6033158) Passed LYNDSAY (test code = LYNDSAY) [id number] [facility][id number] 18:35:00* Test Item Value Reference Range Interpretation [...] 20150905) 0 NEGATIVE CONTROL (test code = 4865642) Passed POSITIVE CONTROL (test code = 20150907) Passed LYNDSAY (test code = LYNDSAY) [id number] [facility][id number] 18:35:00* Test Item Value Reference Range Interpretation [...] 20150905) 0 NEGATIVE CONTROL (test code = 2729869) Passed POSITIVE CONTROL (test code = 9564928) Passed LYNDSAY (test code = LYNDSAY) [id number] [facility][id number] 18:35:00* Test Item Value Reference Range Interpretation Comme nts T-SPOT.TB (test code = 6794321) Negative SeeBelow Normal Value: Ne gativeA negative [...] CORRECTED FOR NEG CONTROL (test code = 1462629) 1 PANEL B SPOT COUNT CORRECTED FOR NEG CONTROL (test code = 4887261) 0 NEGATIVE CONTROL (test code = 6464723) Passed POSITIVE CONTROL (test code = 2832084) Passed LYNDSAY (test code = LYNDSAY) [id number] [facility][id number] 18:35:00* Test Item Value Reference Range Interpretation Comme [facility] T-SPOT.TB (test code = 0202940) Negative SeeBelow Normal Value: Ne gativeA negative [...] CORRECTED FOR NEG CONTROL (test code = 1762758) 0 NEGATIVE CONTROL (test code = 6354937) Passed POSITIVE CONTROL (test code = 1353119) Passed LYNDSAY (test code = LYNDSAY) [id number] [facility][id number] 18:35:00* Test Item Value Reference Range Interpretation [...] 20150905) 0 NEGATIVE CONTROL (test code = 2981271) Passed POSITIVE CONTROL (test code = 8165931) Passed LYNDSAY (test code = LYNDSAY) [id number] [facility][id number] 18:35:00* Test Item Value Reference Range Interpretation Comme nts T-SPOT.TB (test code = 4364043) Negative SeeBelow Normal Value: Ne gativeA negative [...] 20150905) 0 NEGATIVE CONTROL (test code = 8208633) Passed POSITIVE CONTROL (test code = 20150907) Passed LYNDSAY (test code = LYNDSAY) [id number] [facility][id number] 18:35:00* Test Item Value Reference Range Interpretation [...] 20150905) 0 NEGATIVE CONTROL (test code = 3621612) Passed POSITIVE CONTROL (test code = 20150907) Passed LYNDSAY (test code = LYNDSAY) [id number] [facility][id number] 18:35:00* Test Item Value Reference Range Interpretation Comme nts T-SPOT.TB (test code = 81779-1) Negative SeeBelow Normal Value: Ne gativeA negative [...] CORRECTED FOR NEG CONTROL (test code = 30348-5) 0 NEGATIVE CONTROL (test code = 38999-1) Passed POSITIVE CONTROL (test code = 87771-2) Passed LYNDSAY (test code = LYNDSAY) [id number] [facility][id number] 18:35:00* Test Item Value Reference Range Interpretation Comme nts T-SPOT.TB (test code = 40218-7) Negative SeeBelow Normal Value: Ne gativeA negative [...] CORRECTED FOR NEG CONTROL (test code = 18249-2) 0 NEGATIVE CONTROL (test code = 26832-8) Passed POSITIVE CONTROL (test code = 40949-3) Passed LYNDSAY (test code = LYNDSYA) [id number] [facility][id number] 18:35:00* Test Item Value Reference Range Interpretation Comme nts T-SPOT.TB (test code = 40015-6) Negative SeeBelow Normal Value: Ne gativeA negative [...] CORRECTED FOR NEG CONTROL (test code = 99905-9) 0 NEGATIVE CONTROL (test code = 05850-1) Passed POSITIVE CONTROL (test code = 21600-7) Passed LYNDSAY (test code = LYNDSAY) [id number] [facility][id number] 18:35:00* Test Item Value Reference Range Interpretation Comme nts T-SPOT.TB (test code = 44991-7) Negative SeeBelow Normal Value: Ne gativeA negative [...] CORRECTED FOR NEG CONTROL (test code = 39043-4) 0 NEGATIVE CONTROL (test code = 41383-6) Passed POSITIVE CONTROL (test code = 02213-9) Passed LYNDSAY (test code = LYNDSAY) [id number] [facility][id number] 18:35:00* Test Item Value Reference Range Interpretation Comme nts T-SPOT.TB (test code = 49124-3) Negative SeeBelow Normal Value: Ne gativeA negative [...] CORRECTED FOR NEG CONTROL (test code = 54627-2) 0 NEGATIVE CONTROL (test code = 10091-0) Passed POSITIVE CONTROL (test code = 13887-1) Passed LYNDSAY (test code = LYNDSAY) [id number] [facility][id number] 18:35:00* Test Item Value Reference Range Interpretation Comme nts T-SPOT.TB (test code = 53084-5) Negative SeeBelow Normal Value: Ne gativeA negative [...] CORRECTED FOR NEG CONTROL (test code = 56755-0) 0 NEGATIVE CONTROL (test code = 51714-5) Passed POSITIVE CONTROL (test code = 60559-3) Passed LYNDSAY (test code = LYNDSAY) [id number] [facility][id number] 18:35:00* Test Item Value Reference Range Interpretation Comme nts T-SPOT.TB (test code = 50796-1) Negative SeeBelow Normal Value: Ne gativeA negative [...] CORRECTED FOR NEG CONTROL (test code = 40290-4) 0 NEGATIVE CONTROL (test code = 66097-5) Passed POSITIVE CONTROL (test code = 08493-0) Passed LYNDSAY (test code = LYNDSAY) [id number] [facility][id number] 18:35:00* Test Item Value Reference Range Interpretation Comme nts T-SPOT.TB (test code = 59647-6) Negative SeeBelow Normal Value: Ne gativeA negative [...] CORRECTED FOR NEG CONTROL (test code = 94963-3) 0 NEGATIVE CONTROL (test code = 11404-4) Passed POSITIVE CONTROL (test code = 35597-8) Passed LYNDSAY (test code = LYNDSAY) [id number] [facility][id number] 18:35:00* Test Item Value Reference Range Interpretation Comme nts T-SPOT.TB (test code = 36112-9) Negative SeeBelow Normal Value: Ne gativeA negative [...] CORRECTED FOR NEG CONTROL (test code = 37743-8) 0 NEGATIVE CONTROL (test code = 37752-0) Passed POSITIVE CONTROL (test code = 78993-2) Passed LYNDSAY (test code = LYNDSAY) [id number] [facility][id number] 18:35:00* Test Item Value Reference Range Interpretation Comme nts T-SPOT.TB (test code = 92561-6) Negative SeeBelow Normal Value: Ne gativeA negative [...] CORRECTED FOR NEG CONTROL (test code = 52485-5) 0 NEGATIVE CONTROL (test code = 30501-7) Passed POSITIVE CONTROL (test code = 96001-0) Passed LYNDSAY (test code = LYNDSAY) [id number] [facility][id number] 18:35:00* Test Item Value Reference Range Interpretation Comme nts T-SPOT.TB (test code = 88366-1) Negative SeeBelow Normal Value: Ne gativeA negative [...] CORRECTED FOR NEG CONTROL (test code = 60153-8) 0 NEGATIVE CONTROL (test code = 33481-8) Passed POSITIVE CONTROL (test code = 92736-9) Passed LYNDSAY (test code = LYNDSAY) [id number] [facility][id number] 18:35:00* Test Item Value Reference Range Interpretation Comme nts T-SPOT.TB (test code = 58056-4) Negative SeeBelow Normal Value: Ne gativeA negative [...] CORRECTED FOR NEG CONTROL (test code = 76582-0) 0 NEGATIVE CONTROL (test code = 16830-7) Passed POSITIVE CONTROL (test code = 82185-3) Passed LYNDSAY (test code = LYNDSAY) [id number] [facility][id number] 18:35:00* Test Item Value Reference Range Interpretation Comme nts T-SPOT.TB (test code = 09001-1) Negative SeeBelow Normal Value: Ne gativeA negative [...] CORRECTED FOR NEG CONTROL (test code = 40267-4) 0 NEGATIVE CONTROL (test code = 91789-4) Passed POSITIVE CONTROL (test code = 80384-2) Passed LYNDSAY (test code = LYNDSAY) [id number] [facility][id number] 18:35:00* Test Item Value Reference Range Interpretation Comme nts T-SPOT.TB (test code = 00712-2) Negative SeeBelow Normal Value: Ne gativeA negative [...] CORRECTED FOR NEG CONTROL (test code = 20365-5) 0 NEGATIVE CONTROL (test code = 77013-4) Passed POSITIVE CONTROL (test code = 34289-2) Passed LYNDSAY (test code = LYNDSAY) [id number] [facility][id number] 18:35:00* Test Item Value Reference Range Interpretation Comme nts T-SPOT.TB (test code = 25627-5) Negative SeeBelow Normal Value: Ne gativeA negative [...] CORRECTED FOR NEG CONTROL (test code = 13307-0) 0 NEGATIVE CONTROL (test code = 94550-2) Passed POSITIVE CONTROL (test code = 97201-8) Passed LYNDSAY (test code = LYNDSAY) [id number] [facility][id number] 18:35:00* Test Item Value Reference Range Interpretation Comme nts T-SPOT.TB (test code = 9662970) Negative SeeBelow Normal Value: Ne gativeA negative [...] CORRECTED FOR NEG CONTROL (test code = 8088372) 1 PANEL B SPOT COUNT CORRECTED FOR NEG CONTROL (test code = 3611824) 0 NEGATIVE CONTROL (test code = 2479776) Passed POSITIVE CONTROL (test code = 8859296) Passed LYNDSAY (test code = LYNDSAY) [id number] [facility][id number] 18:35:00* Test Item Value Reference Range Interpretation Comme nts T-SPOT.TB (test code = 8059938) Negative SeeBelow Normal Value: Ne gativeA negative [...] CORRECTED FOR NEG CONTROL (test code = 5343000) 1 PANEL B SPOT COUNT CORRECTED FOR NEG CONTROL (test code = 3976031) 0 NEGATIVE CONTROL (test code = 5764309) Passed POSITIVE CONTROL (test code = 2337641) Passed LYNDSAY (test code = LYNDSAY) [id number] [facility]MX6085-21-84 18:35:00* Test Item Value Reference Range Interpretation Comme [facility] T-SPOT.TB (test code = 7091519) Negative SeeBelow Normal Value: Ne gativeA negative [...] CORRECTED FOR NEG CONTROL (test code = 4429765) 1 PANEL B SPOT COUNT CORRECTED FOR NEG CONTROL (test code = 6855919) 0 NEGATIVE CONTROL (test code = 2901612) Passed POSITIVE CONTROL (test code = 20150907) Passed LYNDSAY (test code = LYNDSAY) [id number] [facility] [id number] 13:41:18 Transesophageal Echocardiography Report (CHETAN) Demographics Patient Name YUE LAWS Date of Study 06/16/2023 ESTELLE Gender Female Visit Number [id number] Race Room Number 1055 Number Date of 1970 Referring Physician Age 53 year(s) [employer] Man Interpreting Physician Brian MDProcedure Type of Study [...] valve.Tricuspid Valve Partially visualized. Pulmonic Valve Not visualized.[facility] maamfc3797-78-89 09:55:41* Test Item Value Reference Range Interpretation Comme nts Result (test code = 6463-4) No MRSA isolated [facility] vlbeab6177-91-83 09:55:41* Test Item Value Reference Range Interpretation Comme nts Result (test code = 6463-4) No MRSA isolated [facility]2023-11-28 09:55:41* Test Item Value Reference Range Interpretation Comme nts Result (test code = 6463-4) No MRSA isolated [facility] vsnggp6976-01-16 09:55:41* Test Item Value Reference Range Interpretation Comme nts Result (test code = 6463-4) No MRSA isolated [facility] dcuzke4359-84-24 09:55:41* Test Item Value Reference Range Interpretation Comme nts Result (test code = 6463-4) No MRSA isolated [facility] zruqvn8335-35-78 09:55:41* Test Item Value Reference Range Interpretation Comme nts Result (test code = 6463-4) No MRSA isolated [facility] ddblmi5433-04-97 09:55:41* Test Item Value Reference Range Interpretation Comme nts Result (test code = 6463-4) No MRSA isolated [facility] vpoazz2170-38-37 09:55:41* Test Item Value Reference Range Interpretation Comme nts Result (test code = 6463-4) No MRSA isolated [facility] lumwhs7934-30-03 09:55:41* Test Item Value Reference Range Interpretation Comme nts Result (test code = 6463-4) No MRSA isolated [facility] jxtbqw6332-62-23 09:55:41* Test Item Value Reference Range Interpretation Comme nts Result (test code = 6463-4) No MRSA isolated [facility] oqavyl1207-73-56 09:55:41* Test Item Value Reference Range Interpretation Comme nts Result (test code = 6463-4) No MRSA isolated [facility] oywtpz2509-86-82 09:55:41* Test Item Value Reference Range Interpretation Comme nts Result (test code = 6463-4) No MRSA isolated [facility] dovywi2975-03-01 09:55:41* Test Item Value Reference Range Interpretation Comme nts Result (test code = 6463-4) No MRSA isolated [facility] nzyyqz6913-99-33 09:55:41* Test Item Value Reference Range Interpretation Comme nts Result (test code = 6463-4) No MRSA isolated [facility] bxendy8588-94-61 09:55:41* Test Item Value Reference Range Interpretation Comme nts Result (test code = 6463-4) No MRSA isolated [facility] vyxsjb0783-37-83 09:55:41* Test Item Value Reference Range Interpretation Comme nts Result (test code = 6463-4) No MRSA isolated [facility] jjdrvx5866-66-51 09:55:41* Test Item Value Reference Range Interpretation Comme nts Result (test code = 6463-4) No MRSA isolated [facility] xjjvra7396-56-45 09:55:41* Test Item Value Reference Range Interpretation Comme nts Result (test code = 6463-4) No MRSA isolated [facility] njbpjn0097-22-99 09:55:41* Test Item Value Reference Range Interpretation Comme nts Result (test code = 6463-4) No MRSA isolated [facility] hpklan9752-12-25 09:55:41* Test Item Value Reference Range Interpretation Comme nts Result (test code = 6463-4) No MRSA isolated [facility] fmwnzw4201-44-30 09:55:41* Test Item Value Reference Range Interpretation Comme nts Result (test code = 6463-4) No MRSA isolated [facility] timjtf2234-18-54 09:55:41* Test Item Value Reference Range Interpretation Comme nts Result (test code = 6463-4) No MRSA isolated [facility] valjoz9159-05-80 09:55:41* Test Item Value Reference Range Interpretation Comme nts Result (test code = 6463-4) No MRSA isolated [facility] fktrsf7513-20-77 09:55:41* Test Item Value Reference Range Interpretation Comme nts Result (test code = 6463-4) No MRSA isolated [facility] kwxkzs5060-62-30 09:55:41* Test Item Value Reference Range Interpretation Comme nts Result (test code = 6463-4) No MRSA isolated [facility] vtaybk0655-23-19 09:55:41* Test Item Value Reference Range Interpretation Comme nts Result (test code = 6463-4) No MRSA isolated [facility] zaplar5855-24-56 09:55:41* Test Item Value Reference Range Interpretation Comme nts Result (test code = 6463-4) No MRSA isolated [facility] dsoysq5046-17-17 09:55:41* Test Item Value Reference Range Interpretation Comme nts Result (test code = 6463-4) No MRSA isolated [facility] obblqc5789-63-90 09:55:41* Test Item Value Reference Range Interpretation Comme nts Result (test code = 6463-4) No MRSA isolated [facility] hjbpnn9534-57-25 09:55:41* Test Item Value Reference Range Interpretation Comme nts Result (test code = 6463-4) No MRSA isolated [facility] wgbvjz1798-58-53 09:55:41* Test Item Value Reference Range Interpretation Comme nts Result (test code = 6463-4) No MRSA isolated [facility] lnldgu7572-99-74 09:55:41* Test Item Value Reference Range Interpretation Comme nts Result (test code = 6463-4) No MRSA isolated [facility] DEUUTR8118-17-27 09:55:41* Test Item Value Reference Range Interpretation Comme nts CULTURE ([facility]) (test code = 1095) No MRSA isolated CRYPTOCOCCAL JALRQMW6123-53-90 15:50:36* Test Item Value Reference Range Interpretation Comme nts CRYPTOCOCCAL ANTIGEN, SERUM ([facility]) (test code = 1828) Negative Negative, Interference SPUTUM CULTURE + GRAM [id number] 10:30:11* Test Item Value Reference Range Interpretation Comme nts CULTURE ([facility]) (test code = 1095) PSEUDOMONAS AERUGINOSA A [...] GRAM STAIN RESULT (BEAKER) (test code = 259781) 10-15 epithelial cells GRAM STAIN RESULT (BEAKER) (test code = 687437) 2+ gram positive cocci in chains and pairs GRAM STAIN RESULT (BEAKER) (test code = 131941) 1+ gram negative rods GRAM STAIN RESULT (BEAKER) (test code = 434789) 1+ yeast 2+ Normal respiratory rebel presentVANCOMYCIN LEVEL, [id number] 06:41:26* Test Item Value Reference Range Interpretation Comme nts VANCOMYCIN TROUGH (BEAKER) ( test code = 522) 17.0 ug/mL 10.0-20.0 Land [employer] ID - ADMINECHO W CONTRAST & OXWQFBP8237-42-78 13:44:03Transthoracic Echocardiography Report (TTE) Demographics Patient Name YUE LAWS Date of Study 06/14/2023 ESTELLE Gender Female Visit Number [id number] Race Room Number 1055 Number Date of 1970 Referring Aydee Go MD Physician Age 53 year(s) [employer]ush Man James Albarran RDCS Interpreting Mauricio Bonilla Physician [...] Mean Velocity: 0.86 m/s Mean Gradient: 3.28 mm Hg LVOT Diameter: 2.03 cm LVOT VTI: 21.8 cm LVOT Area: 3.24 cm^2 LVOT SV:70.52 ml LVOT CO: 6.49 l/min LVOT CI: 3.42 l/min/m^2 Pulmonic Valve Peak Velocity: 0.85 m/s Peak Gradient: 2.89 mmHgCH[facility] CenterHEMOGLOBIN A1C 2023-06-14 09:26:42* Test Item Value Reference Range Interpretation Comme nts HEMOGLOBIN A1C ELECTROPHORESIS (hetras) (test code = 3811) 6.7 % See_Comment [...] 5.7- 6.4% indicates increased risk for diabetes (prediabetes)."Land [employer]er ID - ADMOperator ID - ADMECG 12 qolh6231-62-04 09:06:12Ventricular Rate 97 BPMAtrial Rate 97 BPMP-R Interval 146 msQRS Duration 96 msQ-T Interval 378 msQTC Calculation(Bazett) 480 msP [place] 68 degreesR [place] 107 degreesT [place] 18 degrees Suspect arm leadreversal, interpretation assumes no reversalNormal sinus rhythmRightward axisNonspecific T wave abnormalityAbnormal ECGWhen compared with ECG of 30-MAR-2023 13:06,QRS axis Shifted rightConfirmed by Maag, Luis ([id number]) on 06/14/2023 9:06:07 [facility] [id number] 09:06:12Ventricular Rate 97 BPMAtrial Rate 97 BPMP-R Interval 146 msQRS Duration 96 msQ-T Interval 378 msQTC Calculation(Dimas) 480 msP [place] 68 degreesR [place] 107 degreesT [place] 18 degrees Suspect arm leadreversal, interpretation assumes no reversalNormal sinus rhythmRightward axisNonspecific T wave abno rmalityAbnormal ECGWhen compared with ECG of 30-MAR-2023 13:06,QRS axis Shifted rightConfirmed by Luis Lopez ([id number]) on 06/14/2023 9:06:07 [facility] [id number] 04:48:18* Test Item Value Reference Range Interpretation [...] GFR is not applicable for dialysis patients Land [employer] ID - ADMINCBC (HEMOGRAM ONLY)2023-06-14 04:22:50* Test [...] 413) 0 /100 WBC 0-0 Strep pneumoniae vvrzpkf8231-60-22 23:34:41* Test Item Value Reference Range Interpretation Comme nts Strep pneumoniae Antigen (test code = 01362-2) Presumptive negative for pneumococcal pneumonia - see [...] the test. Lab Interpretation (test code = 29663-8) Normal [facility] Districttrep pneumoniae edhdsra2485-24-50 23:34:41* Test Item Value Reference Range Interpretation Comme nts Strep pneumoniae Antigen (test code = 45384-9) Presumptive negative for pneumococcal pneumonia - see [...] the test. Lab Interpretation (test code = 90441-6) [facility] nbeivwu7342-39-84 23:34:41* Test Item Value Reference Range Interpretation Comme nts Strep pneumoniae Antigen (test code = 94718-3) Presumptive negative for pneumococcal pneumonia - see [...] the test. Lab Interpretation (test code = 72172-4) [facility] ffmhfqf9299-84-36 23:34:41* Test Item Value Reference Range Interpretation Comme nts Strep pneumoniae Antigen (test code = 65242-6) Presumptive negative for pneumococcal pneumonia - see [...] the test. Lab Interpretation (test code = 18260-7) [facility] ktloftj2892-92-62 23:34:41* Test Item Value Reference Range Interpretation Comme nts Strep pneumoniae Antigen (test code = 24712-7) Presumptive negative for pneumococcal pneumonia - see [...] the test. Lab Interpretation (test code = 13150-0) [facility] wksnmbh8235-83-94 23:34:41* Test Item Value Reference Range Interpretation Comme nts Strep pneumoniae Antigen (test code = 30159-1) Presumptive negative for pneumococcal pneumonia - see [...] the test. Lab Interpretation (test code = 28362-0) [facility] wjcsiiw6542-04-20 23:34:41* Test Item Value Reference Range Interpretation Comme nts Strep pneumoniae Antigen (test code = 12771-8) Presumptive negative for pneumococcal pneumonia - see [...] the test. Lab Interpretation (test code = 61695-6) [facility] kzyodzp2872-00-63 23:34:41* Test Item Value Reference Range Interpretation Comme nts Strep pneumoniae Antigen (test code = 37423-9) Presumptive negative for pneumococcal pneumonia - see [...] the test. Lab Interpretation (test code = 39365-9) [facility] saufubm7526-67-87 23:34:41* Test Item Value Reference Range Interpretation Comme nts Strep pneumoniae Antigen (test code = 69883-8) Presumptive negative for pneumococcal pneumonia - see [...] the test. Lab Interpretation (test code = 26623-2) [facility] rxuwchu3967-63-01 23:34:41* Test Item Value Reference Range Interpretation Comme nts Strep pneumoniae Antigen (test code = 05174-6) Presumptive negative for pneumococcal pneumonia - see [...] the test. Lab Interpretation (test code = 17995-9) [facility] mcfunat7273-84-17 23:34:41* Test Item Value Reference Range Interpretation Comme nts Strep pneumoniae Antigen (test code = 56403-5) Presumptive negative for pneumococcal pneumonia - see [...] the test. Lab Interpretation (test code = 31803-3) [facility] aeldlvb4844-91-17 23:34:41* Test Item Value Reference Range Interpretation Comme nts Strep pneumoniae Antigen (test code = 33263-2) Presumptive negative for pneumococcal pneumonia - see [...] the test. Lab Interpretation (test code = 09267-9) [facility] oygmksx2569-13-96 23:34:41* Test Item Value Reference Range Interpretation Comme nts Strep pneumoniae Antigen (test code = 59519-2) Presumptive negative for pneumococcal pneumonia - see [...] the test. Lab Interpretation (test code = 18938-7) [facility] yegicuo5088-12-61 23:34:41* Test Item Value Reference Range Interpretation Comme nts Strep pneumoniae Antigen (test code = 07844-1) Presumptive negative for pneumococcal pneumonia - see [...] the test. Lab Interpretation (test code = 18669-7) [facility] vwvibep6444-00-09 23:34:41* Test Item Value Reference Range Interpretation Comme nts Strep pneumoniae Antigen (test code = 30412-0) Presumptive negative for pneumococcal pneumonia - see [...] the test. Lab Interpretation (test code = 85933-7) [facility] kxxwyyb4292-60-44 23:34:41* Test Item Value Reference Range Interpretation Comme nts Strep pneumoniae Antigen (test code = 47851-8) Presumptive negative for pneumococcal pneumonia - see [...] the test. Lab Interpretation (test code = 94271-4) [facility] waakzvf3911-50-27 23:34:41* Test Item Value Reference Range Interpretation Comme nts Strep pneumoniae Antigen (test code = 12008-6) Presumptive negative for pneumococcal pneumonia - see [...] the test. Lab Interpretation (test code = 44161-7) [facility] gtsgdec8445-02-37 23:34:41* Test Item Value Reference Range Interpretation Comme nts Strep pneumoniae Antigen (test code = 81523-8) Presumptive negative for pneumococcal pneumonia - see [...] the test. Lab Interpretation (test code = 19258-6) [facility] fmhzhbj9262-85-34 23:34:41* Test Item Value Reference Range Interpretation Comme nts Strep pneumoniae Antigen (test code = 34221-5) Presumptive negative for pneumococcal pneumonia - see [...] the test. Lab Interpretation (test code = 69419-0) [facility] qxzptqf4386-68-97 23:34:41* Test Item Value Reference Range Interpretation Comme nts Strep pneumoniae Antigen (test code = 58255-6) Presumptive negative for pneumococcal pneumonia - see [...] the test. Lab Interpretation (test code = 45944-1) [facility] qcbqeqs6624-96-47 23:34:41* Test Item Value Reference Range Interpretation Comme nts Strep pneumoniae Antigen (test code = 96194-6) Presumptive negative for pneumococcal pneumonia - see [...] the test. Lab Interpretation (test code = 29769-3) [facility] sdtkwhu7071-85-72 23:34:41* Test Item Value Reference Range Interpretation Comme nts Strep pneumoniae Antigen (test code = 83158-6) Presumptive negative for pneumococcal pneumonia - see [...] the test. Lab Interpretation (test code = 94510-6) [facility] xfukjph7724-50-53 23:34:41* Test Item Value Reference Range Interpretation Comme nts Strep pneumoniae Antigen (test code = 39135-8) Presumptive negative for pneumococcal pneumonia - see [...] the test. Lab Interpretation (test code = 37106-7) [facility] yruavad7180-21-57 23:34:41* Test Item Value Reference Range Interpretation Comme nts Strep pneumoniae Antigen (test code = 35486-0) Presumptive negative for pneumococcal pneumonia - see [...] the test. Lab Interpretation (test code = 54600-7) [facility] uclqnhc6513-42-92 23:34:41* Test Item Value Reference Range Interpretation Comme nts Strep pneumoniae Antigen (test code = 38248-1) Presumptive negative for pneumococcal pneumonia - see [...] the test. Lab Interpretation (test code = 75976-8) [facility] bdsndwn7184-64-68 23:34:41* Test Item Value Reference Range Interpretation Comme nts Strep pneumoniae Antigen (test code = 21925-2) Presumptive negative for pneumococcal pneumonia - see [...] the test. Lab Interpretation (test code = 16665-9) [facility] snodlne9843-14-69 23:34:41* Test Item Value Reference Range Interpretation Comme nts Strep pneumoniae Antigen (test code = 68868-1) Presumptive negative for pneumococcal pneumonia - see [...] the test. Lab Interpretation (test code = 29863-7) [facility] llblrvs6855-94-99 23:34:41* Test Item Value Reference Range Interpretation Comme nts Strep pneumoniae Antigen (test code = 71603-4) Presumptive negative for pneumococcal pneumonia - see [...] the test. Lab Interpretation (test code = 22962-4) [facility] lgtbxnk8316-32-43 23:34:41* Test Item Value Reference Range Interpretation Comme nts Strep pneumoniae Antigen (test code = 72646-5) Presumptive negative for pneumococcal pneumonia - see [...] the test. Lab Interpretation (test code = 97397-4) [facility] hrggiri0815-56-19 23:34:41* Test Item Value Reference Range Interpretation Comme nts Strep pneumoniae Antigen (test code = 02341-2) Presumptive negative for pneumococcal pneumonia - see [...] the test. Lab Interpretation (test code = 51614-3) [facility] mqxrcxt8902-50-97 23:34:41* Test Item Value Reference Range Interpretation Comme nts Strep pneumoniae Antigen (test code = 04560-6) Presumptive negative for pneumococcal pneumonia - see [...] the test. Lab Interpretation (test code = 03504-9) [facility] fstbzfx7321-73-05 23:34:41* Test Item Value Reference Range Interpretation Comme nts Strep pneumoniae Antigen (test code = 54819-2) Presumptive negative for pneumococcal pneumonia - see [...] the test. Lab Interpretation (test code = 48249-9) [facility] CenterTREP PNEUMONIAE MVVZWEK4202-29-32 23:34:41* Test Item Value Reference Range Interpretation [...] detection limit of the test. Legionella antigen, lrozb9913-01-87 23:29:07* Test Item Value Reference Range Interpretation Comme nts Legionella Urine Antigen (test code = 07917-3) Negative - see comment Negative Negative for L. pneumophila serogroup 1 antigen, suggesting no recent or current infection with this serogroup. Legionellosis cannot be ruled out since other serogroups and species may cause disease. Lab Interpretation (test code = 28770-7) [facility] relrm4911-87-34 23:29:07* Test Item Value Reference Range Interpretation Comme nts Legionella Urine Antigen (test code = 77310-4) Negative - see comment Negative Negative for L. pneumophila serogroup 1 antigen, suggesting no recent or current infection with this serogroup. Legionellosis cannot be ruled out since other serogroups and species may cause disease. Lab Interpretation (test code = 73149-6) [facility], fhmvj1069-78-24 23:29:07* Test Item Value Reference Range Interpretation Comme nts Legionella Urine Antigen (test code = 70872-8) Negative - see comment Negative Negative for L. pneumophila serogroup 1 antigen, suggesting no recent or current infection with this serogroup. Legionellosis cannot be ruled out since other serogroups and species may cause disease. Lab Interpretation (test code = 28331-0) [facility], oxgvk4256-57-57 23:29:07* Test Item Value Reference Range Interpretation Comme nts Legionella Urine Antigen (test code = 60012-4) Negative - see comment Negative Negative for L. pneumophila serogroup 1 antigen, suggesting no recent or current infection with this serogroup. Legionellosis cannot be ruled out since other serogroups and species may cause disease. Lab Interpretation (test code = 63211-3) [facility], vlgcs4747-41-12 23:29:07* Test Item Value Reference Range Interpretation Comme nts Legionella Urine Antigen (test code = 34390-7) Negative - see comment Negative Negative for L. pneumophila serogroup 1 antigen, suggesting no recent or current infection with this serogroup. Legionellosis cannot be ruled out since other serogroups and species may cause disease. Lab Interpretation (test code = 70516-8) [facility], gjftq2157-01-31 23:29:07* Test Item Value Reference Range Interpretation Comme nts Legionella Urine Antigen (test code = 08745-6) Negative - see comment Negative Negative for L. pneumophila serogroup 1 antigen, suggesting no recent or current infection with this serogroup. Legionellosis cannot be ruled out since other serogroups and species may cause disease. Lab Interpretation (test code = 33878-8) [facility], xknjx2946-35-10 23:29:07* Test Item Value Reference Range Interpretation Comme nts Legionella Urine Antigen (test code = 27592-2) Negative - see comment Negative Negative for L. pneumophila serogroup 1 antigen, suggesting no recent or current infection with this serogroup. Legionellosis cannot be ruled out since other serogroups and species may cause disease. Lab Interpretation (test code = 99058-3) [facility], qlaal7159-30-64 23:29:07* Test Item Value Reference Range Interpretation Comme nts Legionella Urine Antigen (test code = 87563-9) Negative - see comment Negative Negative for L. pneumophila serogroup 1 antigen, suggesting no recent or current infection with this serogroup. Legionellosis cannot be ruled out since other serogroups and species may cause disease. Lab Interpretation (test code = 74213-5) [facility], daios9864-64-85 23:29:07* Test Item Value Reference Range Interpretation Comme nts Legionella Urine Antigen (test code = 45828-1) Negative - see comment Negative Negative for L. pneumophila serogroup 1 antigen, suggesting no recent or current infection with this serogroup. Legionellosis cannot be ruled out since other serogroups and species may cause disease. Lab Interpretation (test code = 48787-0) [facility], vioub2925-40-49 23:29:07* Test Item Value Reference Range Interpretation Comme nts Legionella Urine Antigen (test code = 81058-5) Negative - see comment Negative Negative for L. pneumophila serogroup 1 antigen, suggesting no recent or current infection with this serogroup. Legionellosis cannot be ruled out since other serogroups and species may cause disease. Lab Interpretation (test code = 96126-2) [facility], bebly6165-91-55 23:29:07* Test Item Value Reference Range Interpretation Comme nts Legionella Urine Antigen (test code = 02774-3) Negative - see comment Negative Negative for L. pneumophila serogroup 1 antigen, suggesting no recent or current infection with this serogroup. Legionellosis cannot be ruled out since other serogroups and species may cause disease. Lab Interpretation (test code = 39787-9) [facility], [id number] 23:29:07* Test Item Value Reference Range Interpretation Comme nts Legionella Urine Antigen (test code = 57188-2) Negative - see comment Negative Negative for L. pneumophila serogroup 1 antigen, suggesting no recent or current infection with this serogroup. Legionellosis cannot be ruled out since other serogroups and species may cause disease. Lab Interpretation (test code = 54571-8) [facility], [id number] 23:29:07* Test Item Value Reference Range Interpretation Comme nts Legionella Urine Antigen (test code = 65479-6) Negative - see comment Negative Negative for L. pneumophila serogroup 1 antigen, suggesting no recent or current infection with this serogroup. Legionellosis cannot be ruled out since other serogroups and species may cause disease. Lab Interpretation (test code = 76813-4) [facility], [id number] 23:29:07* Test Item Value Reference Range Interpretation Comme nts Legionella Urine Antigen (test code = 21479-6) Negative - see comment Negative Negative for L. pneumophila serogroup 1 antigen, suggesting no recent or current infection with this serogroup. Legionellosis cannot be ruled out since other serogroups and species may cause disease. Lab Interpretation (test code = 86409-2) [facility], [id number] 23:29:07* Test Item Value Reference Range Interpretation Comme nts Legionella Urine Antigen (test code = 22782-8) Negative - see comment Negative Negative for L. pneumophila serogroup 1 antigen, suggesting no recent or current infection with this serogroup. Legionellosis cannot be ruled out since other serogroups and species may cause disease. Lab Interpretation (test code = 03998-5) [facility], [id number] 23:29:07* Test Item Value Reference Range Interpretation Comme nts Legionella Urine Antigen (test code = 70349-3) Negative - see comment Negative Negative for L. pneumophila serogroup 1 antigen, suggesting no recent or current infection with this serogroup. Legionellosis cannot be ruled out since other serogroups and species may cause disease. Lab Interpretation (test code = 75513-2) [facility], [id number] 23:29:07* Test Item Value Reference Range Interpretation Comme nts Legionella Urine Antigen (test code = 76675-1) Negative - see comment Negative Negative for L. pneumophila serogroup 1 antigen, suggesting no recent or current infection with this serogroup. Legionellosis cannot be ruled out since other serogroups and species may cause disease. Lab Interpretation (test code = 83609-6) [facility], [id number] 23:29:07* Test Item Value Reference Range Interpretation Comme nts Legionella Urine Antigen (test code = 44294-9) Negative - see comment Negative Negative for L. pneumophila serogroup 1 antigen, suggesting no recent or current infection with this serogroup. Legionellosis cannot be ruled out since other serogroups and species may cause disease. Lab Interpretation (test code = 59774-6) [facility], [id number] 23:29:07* Test Item Value Reference Range Interpretation Comme nts Legionella Urine Antigen (test code = 55742-7) Negative - see comment Negative Negative for L. pneumophila serogroup 1 antigen, suggesting no recent or current infection with this serogroup. Legionellosis cannot be ruled out since other serogroups and species may cause disease. Lab Interpretation (test code = 87305-6) [facility], [id number] 23:29:07* Test Item Value Reference Range Interpretation Comme nts Legionella Urine Antigen (test code = 84795-6) Negative - see comment Negative Negative for L. pneumophila serogroup 1 antigen, suggesting no recent or current infection with this serogroup. Legionellosis cannot be ruled out since other serogroups and species may cause disease. Lab Interpretation (test code = 22813-4) [facility], [id number] 23:29:07* Test Item Value Reference Range Interpretation Comme nts Legionella Urine Antigen (test code = 94047-9) Negative - see comment Negative Negative for L. pneumophila serogroup 1 antigen, suggesting no recent or current infection with this serogroup. Legionellosis cannot be ruled out since other serogroups and species may cause disease. Lab Interpretation (test code = 89192-8) [facility], [id number] 23:29:07* Test Item Value Reference Range Interpretation Comme nts Legionella Urine Antigen (test code = 98389-9) Negative - see comment Negative Negative for L. pneumophila serogroup 1 antigen, suggesting no recent or current infection with this serogroup. Legionellosis cannot be ruled out since other serogroups and species may cause disease. Lab Interpretation (test code = 91629-3) [facility], [id number] 23:29:07* Test Item Value Reference Range Interpretation Comme nts Legionella Urine Antigen (test code = 12496-7) Negative - see comment Negative Negative for L. pneumophila serogroup 1 antigen, suggesting no recent or current infection with this serogroup. Legionellosis cannot be ruled out since other serogroups and species may cause disease. Lab Interpretation (test code = 45926-8) [facility], [id number] 23:29:07* Test Item Value Reference Range Interpretation Comme nts Legionella Urine Antigen (test code = 86466-0) Negative - see comment Negative Negative for L. pneumophila serogroup 1 antigen, suggesting no recent or current infection with this serogroup. Legionellosis cannot be ruled out since other serogroups and species may cause disease. Lab Interpretation (test code = 53832-6) [facility], [id number] 23:29:07* Test Item Value Reference Range Interpretation Comme nts Legionella Urine Antigen (test code = 73672-2) Negative - see comment Negative Negative for L. pneumophila serogroup 1 antigen, suggesting no recent or current infection with this serogroup. Legionellosis cannot be ruled out since other serogroups and species may cause disease. Lab Interpretation (test code = 97803-3) [facility], [id number] 23:29:07* Test Item Value Reference Range Interpretation Comme nts Legionella Urine Antigen (test code = 24819-3) Negative - see comment Negative Negative for L. pneumophila serogroup 1 antigen, suggesting no recent or current infection with this serogroup. Legionellosis cannot be ruled out since other serogroups and species may cause disease. Lab Interpretation (test code = 53520-3) [facility], [id number] 23:29:07* Test Item Value Reference Range Interpretation Comme nts Legionella Urine Antigen (test code = 91023-5) Negative - see comment Negative Negative for L. pneumophila serogroup 1 antigen, suggesting no recent or current infection with this serogroup. Legionellosis cannot be ruled out since other serogroups and species may cause disease. Lab Interpretation (test code = 20725-2) [facility], [id number] 23:29:07* Test Item Value Reference Range Interpretation Comme nts Legionella Urine Antigen (test code = 96605-8) Negative - see comment Negative Negative for L. pneumophila serogroup 1 antigen, suggesting no recent or current infection with this serogroup. Legionellosis cannot be ruled out since other serogroups and species may cause disease. Lab Interpretation (test code = 92723-1) [facility], [id number] 23:29:07* Test Item Value Reference Range Interpretation Comme nts Legionella Urine Antigen (test code = 69657-9) Negative - see comment Negative Negative for L. pneumophila serogroup 1 antigen, suggesting no recent or current infection with this serogroup. Legionellosis cannot be ruled out since other serogroups and species may cause disease. Lab Interpretation (test code = 12870-4) [facility], [id number] 23:29:07* Test Item Value Reference Range Interpretation Comme nts Legionella Urine Antigen (test code = 13036-4) Negative - see comment Negative Negative for L. pneumophila serogroup 1 antigen, suggesting no recent or current infection with this serogroup. Legionellosis cannot be ruled out since other serogroups and species may cause disease. Lab Interpretation (test code = 47199-2) [facility], [id number] 23:29:07* Test Item Value Reference Range Interpretation Comme nts Legionella Urine Antigen (test code = 65233-7) Negative - see comment Negative Negative for L. pneumophila serogroup 1 antigen, suggesting no recent or current infection with this serogroup. Legionellosis cannot be ruled out since other serogroups and species may cause disease. Lab Interpretation (test code = 27397-0) [facility], [id number] 23:29:07* Test Item Value Reference Range Interpretation Comme nts Legionella Urine Antigen (test code = 31942-4) Negative - see comment Negative Negative for L. pneumophila serogroup 1 antigen, suggesting no recent or current infection with this serogroup. Legionellosis cannot be ruled out since other serogroups and species may cause disease. Lab Interpretation (test code = 78756-0) [facility]LL[facility]TIGEN, [id number] 23:29:07* Test Item Value Reference Range Interpretation Comme nts L. PNEUMOPHILA SEROGP 1 UR AG (BEAKER) (test code = 1156) Negative - see comment Negative Negative for L. pneumophila serogroup 1 antigen, suggesting no recent or current infection with this serogroup. Legionellosis cannot be ruled out since other serogroups and species may cause disease. Venous doppler arm, [id number] 20:05:32[facility] - Upper Extremities Veins Demographics Patient Name YUE LAWS Date of Study 06/13/2023 ESTELLE Age 53 Visit Number [id number] Gender Female Accession Number [id number] Date of 1970 Referring Cara Burgess Room Number 1055 Physician [employer]ush Man Lisa Ruiz Interpreting John Solorio, Physician FellowProcedureType [...] in cm/s ; [facility] ANTIGEN WITH HIV-1/2 [id number] 18:36:40* Test Item Value Reference Range Interpretation Comme nts HIV-1 ANTIGEN WITH HIV 1\\T\\2 ANTIBODY (2) (LATOYA) (test code = 2586) Nonreactive Nonreactive MR lumbar spine without & with IV [id number] 14:53:29MR LUMBAR SPINE WITH & WITHOUT IV [...] x 1.7x 1.7 cm. Dorsal paraspinal musculature Q0fgjqtctelkeumd. Postcontrast imaging demonstrates mild peripheralenhancement of the dorsal paraspinal fluid collection. Left adrenalgland 2.9 cm nodule.[facility] WITHOUT IV [id number] 14:53:29[facility] 1970 Sex: [...] 1.7 x 1.7 cm. Dorsal paraspinal musculature F3vxelvgnxohczkl. Postcontrast imaging demonstrates mild peripheralenhancement of the [...] Signed By: Ryan Buckley06/13/2023 14:55 CDTWorkstation Name: [id number] KINASE (CK)2023-06-13 11:54:02* Test Item Value Reference Range Interpretation Comme nts CREATINE KINASE TOTAL (BEAKE R) (test code = 380) 43 U/L 29-200 [employer] ID - ADMINCOMPREHENSIVE METABOLIC [id number] 06:48:22* Test Item Value Reference Range Interpretation [...] GFR is not applicable for dialysis patients [employer] ID - ADMINPROTHROMBIN TIME/NZR7726-00-73 06:40:01* Test Item Value Reference Range Interpretation [...] code = 2801) 1.70 % 0.00-1.00 H [id number] 05:26:09* Test Item Value Reference Range Interpretation Comme nts MAGNESIUM (BEAKER) (test cod e = 627) 2.0 mg/dL 1.6-2.6 [employer] ID - [id number] 05:26:09* Test Item Value Reference Range Interpretation Comme nts PHOSPHORUS (BEAKER) (test co de = 604) 3.5 mg/dL 2.3-4.7 [employer] ID - ADMINBASIC METABOLIC [id number] 05:26:08* Test Item Value Reference Range Interpretation [...] GFR is not applicable for dialysis patients [employer] ID - ADMINCBC W/PLT COUNT & AUTO [id number] 05:11:15* Test Item Value Reference Range Interpretation [...] 0.70 % 0.00-1.00 XR spine lumbar 1 [id number] 10:32:20XR SPINE LUMBAR 1 VIEW CLINICAL INDICATION: L3-4 L[facility]INECTOMY [facility] [id number] 10:32:20 [facility] 1970 Sex: FXR SPINE LUMBAR 1 VIEWCLINICAL INDICATION: L3-4 LAMINECTOMYCOMPARISON: NoneIMPRESSION:A single lateral view of the lumbar spine is obtained intraoperatively.The posterior approach surgical instrument is seen at the L3-L4 level,inferior to the L3 spinous process. Results were communicated to , who concurred with the above findings. Electronically Signed By: Maxim Ramos08/01/2022 10:34 CDTWo rkstation Name: [id number] SPINE LUMBAR 1 [id number] 10:29:18 [facility] : 1970 Sex: [...] Signed By: Maxim Ramos08/01/2022 10:31 CDTWorkstation Name: [id number] Screen, [id number] 05:32:52* Test Item Value Reference Range Interpretation Comme nts Preg Test, Ur (test code = 2-1) Negative Negative Lab Interpretation (test cod e = 63992-0) [facility], [id number] 05:32:52* Test Item Value Reference Range Interpretation Comme nts Preg Test, Ur (test code = 2-1) Negative Negative Lab Interpretation (test cod e = 19650-0) [facility], [id number] 05:32:52* Test Item Value Reference Range Interpretation Comme nts Preg Test, Ur (test code = 2-1) Negative Negative Lab Interpretation (test cod e = 72676-5) [facility], [id number] 05:32:52* Test Item Value Reference Range Interpretation Comme nts Preg Test, Ur (test code = 2-1) Negative Negative Lab Interpretation (test cod e = 28509-3) [facility], [id number] 05:32:52* Test Item Value Reference Range Interpretation Comme nts Preg Test, Ur (test code = 2-1) Negative Negative Lab Interpretation (test cod e = 77597-6) [facility], [id number] 05:32:52* Test Item Value Reference Range Interpretation Comme nts Preg Test, Ur (test code = 2-1) Negative Negative Lab Interpretation (test cod e = 11440-4) [facility], [id number] 05:32:52* Test Item Value Reference Range Interpretation Comme nts Preg Test, Ur (test code = 2111-1) Negative Negative Lab Interpretation (test cod e = 54690-8) [facility], [id number] 05:32:52* Test Item Value Reference Range Interpretation Comme nts Preg Test, Ur (test code = 2-1) Negative Negative Lab Interpretation (test cod e = 66497-9) [facility], [id number] 05:32:52* Test Item Value Reference Range Interpretation Comme nts Preg Test, Ur (test code = 2111-) Negative Negative Lab Interpretation (test cod e = 76701-6) [facility], [id number] 05:32:52* Test Item Value Reference Range Interpretation Comme nts Preg Test, Ur (test code = 2111-) Negative Negative Lab Interpretation (test cod e = 43503-9) [facility], [id number] 05:32:52* Test Item Value Reference Range Interpretation Comme nts Preg Test, Ur (test code = 2111-) Negative Negative Lab Interpretation (test cod e = 22076-6) [facility], [id number] 05:32:52* Test Item Value Reference Range Interpretation Comme nts Preg Test, Ur (test code = 2111-) Negative Negative Lab Interpretation (test cod e = 53462-0) [facility], [id number] 05:32:52* Test Item Value Reference Range Interpretation Comme nts Preg Test, Ur (test code = 2111-) Negative Negative Lab Interpretation (test cod e = 67196-6) [facility], [id number] 05:32:52* Test Item Value Reference Range Interpretation Comme nts Preg Test, Ur (test code = 2111-) Negative Negative Lab Interpretation (test cod e = 36159-9) [facility], [id number] 05:32:52* Test Item Value Reference Range Interpretation Comme nts Preg Test, Ur (test code = 2111-) Negative Negative Lab Interpretation (test cod e = 28679-8) [facility], [id number] 05:32:52* Test Item Value Reference Range Interpretation Comme nts Preg Test, Ur (test code = 2111-) Negative Negative Lab Interpretation (test cod e = 98106-8) [facility], [id number] 05:32:52* Test Item Value Reference Range Interpretation Comme nts Preg Test, Ur (test code = 2-1) Negative Negative Lab Interpretation (test cod e = 66803-6) [facility], [id number] 05:32:52* Test Item Value Reference Range Interpretation Comme nts Preg Test, Ur (test code = 2-1) Negative Negative Lab Interpretation (test cod e = 58067-6) [facility], [id number] 05:32:52* Test Item Value Reference Range Interpretation Comme nts Preg Test, Ur (test code = 2111-1) Negative Negative Lab Interpretation (test cod e = 71288-2) [facility], [id number] 05:32:52* Test Item Value Reference Range Interpretation Comme nts Preg Test, Ur (test code = 2111-) Negative Negative Lab Interpretation (test cod e = 62605-3) [facility], [id number] 05:32:52* Test Item Value Reference Range Interpretation Comme nts Preg Test, Ur (test code = 2111-) Negative Negative Lab Interpretation (test cod e = 26855-9) [facility], [id number] 05:32:52* Test Item Value Reference Range Interpretation Comme nts Preg Test, Ur (test code = 2111-1) Negative Negative Lab Interpretation (test cod e = 06455-1) [facility], [id number] 05:32:52* Test Item Value Reference Range Interpretation Comme nts Preg Test, Ur (test code = 2111-1) Negative Negative Lab Interpretation (test cod e = 71404-9) [facility], [id number] 05:32:52* Test Item Value Reference Range Interpretation Comme nts Preg Test, Ur (test code = 2111-1) Negative Negative Lab Interpretation (test cod e = 35132-2) [facility], [id number] 05:32:52* Test Item Value Reference Range Interpretation Comme nts Preg Test, Ur (test code = 2111-1) Negative Negative Lab Interpretation (test cod e = 62406-2) [facility], [id number] 05:32:52* Test Item Value Reference Range Interpretation Comme nts Preg Test, Ur (test code = 2-1) Negative Negative Lab Interpretation (test cod e = 31334-4) [facility], [id number] 05:32:52* Test Item Value Reference Range Interpretation Comme nts Preg Test, Ur (test code = 2111-1) Negative Negative Lab Interpretation (test cod e = 12861-6) [facility], [id number] 05:32:52* Test Item Value Reference Range Interpretation Comme nts Preg Test, Ur (test code = 2111-) Negative Negative Lab Interpretation (test cod e = 23436-7) [facility] [id number] 05:32:52* Test Item Value Reference Range Interpretation Comme nts Preg Test, Ur (test code = 2111-) Negative Negative Lab Interpretation (test cod e = 93736-0) [facility], [id number] 05:32:52* Test Item Value Reference Range Interpretation Comme nts Preg Test, Ur (test code = 2111-1) Negative Negative Lab Interpretation (test cod e = 21165-3) [facility], [id number] 05:32:52* Test Item Value Reference Range Interpretation Comme nts Preg Test, Ur (test code = 2111-1) Negative Negative Lab Interpretation (test cod e = 90305-3) [facility], [id number] 05:32:52* Test Item Value Reference Range Interpretation Comme nts Preg Test, Ur (test code = 2111-1) Negative Negative Lab Interpretation (test cod e = 97179-9) [facility], [id number] 05:32:52* Test Item Value Reference Range Interpretation Comme nts Preg Test, Ur (test code = 2-1) Negative Negative Lab Interpretation (test cod e = 90711-7) [facility], [id number] 05:32:52* Test Item Value Reference Range Interpretation Comme nts Preg Test, Ur (test code = 2-1) Negative Negative Lab Interpretation (test cod e = 26347-3) [facility], [id number] 05:32:52* Test Item Value Reference Range Interpretation Comme nts Preg Test, Ur (test code = 2-1) Negative Negative Lab Interpretation (test cod e = 28812-1) [facility] CenterPREGNANCY SCREEN, [id number] 05:32:52* Test Item Value Reference Range Interpretation Comme nts TEST URINE (BEAKER ) (test code = 583) Negative Negative BASIC METABOLIC [id number] 23:30:54* Test Item Value Reference Range Interpretation [...] GFR is not applicable for dialysis patients Land [employer]er ID - ADMINPT/EVBU5133-08-39 23:15:33* Test Item Value Reference Range Interpretation Comme nts PROTIME (BEAKER) (test code = 759) 13.5 seconds 11.9-14.2 INR (BEAKER) (test code = 370) 1.02 <=5.90 PARTIAL THROMBOPLASTIN TIME (BEAKER) (test code = 760) 31.6 seconds 22.5-36.0 RECOMMENDED COUMADIN/WARFARIN INR THERAPY RANGESSTANDARD DOSE: 2.0 - 3.0 Includes: PROPHYLAXIS forvenous thrombosis, systemic embolization; TREATMENT for venous thrombosis [...] H CT neck soft tissue without IV [id number] 13:45:22EXAM: CT NECK SOFT TISSUE WITHOUT IV [...] Postoperative changes from anterior cervical discectomy fusionat C3-Z2Gdurnmxv Lung Apices: NormalCH[facility] CenterCT NECK SOFT TISSUE WITHOUT IV [id number] 13:45:22 [facility] 1970 Sex: FEXAM: [...] Postoperative changes from anterior cervical discectomy fusionat C3-D2Sanwypic Lung Apices: NormalIMPRESSION:Exam limited by lack of intravenous contrast.1. 1.8 x 2.9 x 1.3 cm ill-defined fluid collection in the leftanterolateral neck soft tissues, suggesting evolving postoperativehemorrhage. Superimposed infection is not ex cluded.2. Retropharyngeal fluid and air measuring up to 0.8 cm in thickness,favored to be present postoperative right frontal edema. Superimposedinfection is not excluded.3. Postoperative changes from ACDF at C3- Z8Uhjjzzrhaxgwxc Signed By: Maxim Ramos07/31/2022 13:47 CDTWorkstation Name: [id number] METABOLIC [id number] 08:13:13* Test Item Value Reference Range Interpretation [...] GFR is not applicable for dialysis patients Land [employer]er ID - BVCBC W/PLT COUNT & AUTO [id number] 07:46:31* Test Item Value Reference Range Interpretation [...] 0.00-1.00 XR spine cervical 2 or 3 [id number] 20:24:23TECHNIQUE: Frontal and lateral views of the cervical spine. INDICATION: Postop Standing Films. COMPARISON: None.[facility]XR [facility] CERVICAL 2 OR 3 [id number] 20:24:23[facility] : 1970 Sex: [...] Signed By: Zachariah Garcia05/28/2023 20:26 CDTWorkstation Name: [id number] fluoro non-specific up to 1 hour 2023-05-28 11:45:16This is a non-reportable study with no Radiologist dictation. Please refer to your PACS to review images, or Doc Flowsheets for documentation on studies without images.[facility] CenterFL FLUORO NON-SPECIFIC UP TO 1 [id number] 11:45:16 [facility] : 1970 Sex: FThis is a non- reportable study with no Radiologist dictation. Please refer to your PACS to review images, or Doc Flowsheets for documentation on studies without images.FL FLUORO NON-SPECIFIC UP TO 1 [id number] 10:13:02 [facility] 1970 Sex: FTECHNIQUE: 1 lateral fluoroscopic image of the cervical spine forlocalization.Fluoroscopic time: 3second(s).FINDINGS:The surgical pointer is at C3-C4.The findings were discussed with Dr. Garcia in theOR who concurred withthe findings.IMPRESSION:Intraoperative localization plain film as described abo ve.Electronically Signed By: Derik Reyez05/28/2023 10:15 CDTWorkstation Name: [id number], QUANTITATIVE, [id number] 08:21:03* Test Item Value Reference Range Interpretation Comme nts GONADOTROPIN, CHORIONIC (HCG ) QUANT (BEAKER) (test code = 649) < mIU/mL 0-10 Non- Females: <10 mIU/mL Females: Gestation Age Reference Range(mIU/mL) 0.2-1 Week 5-50 1-2 Weeks 50-500 2-3 Weeks 100-5,000 3-4 Weeks 500-10,000 4-5 Weeks 1,000-50,000 5-6 Weeks 10,000-100,000 6-8 Weeks 15,000- 200,000 2-3 Months 10,000-100,000 Land Leveler ID - ADMINCULTURE, [id number] 09:28:30SPECIMEN NUMBER: [id number] CULTURE, URINE SPECIMEN NUMBER: [id number] SPECIMEN COMMENT: URINE SOURCE: URINE REPORT STATUS: FINAL FINAL REPORT: 05/15/2023 >100,000 CFU/ML UROGENITAL REBEL PRESENT NOCOMMON PATHOGENS UNLESS OTHERWISE INDICATED, ALL TESTING PERFORMED AT [facility] [address] [place] [address] [employer] MILL[employer] HAMMER MILL: JANNY STEINER M.D. CLIA NUMBER [id number] [place]. [id number], [id number] 12:02:50SPECIMEN NUMBER: [id number] CULTURE, URINE SPECIMEN NUMBER: [id number] SOURCE: URINE REPORT STATUS: FINAL FINAL REPORT: 05/13/2023 NO SPECIMEN RECEIVED FOR TESTING. CHARGES DELETED.BASIC METABOLIC [id number] 04:48:43* Test Item Value Reference Range Interpretation Comme nts GLUCOSE (test code = 2217) 117 MG/DL 70-99 H BUN (test code = 2208) 20 MG/DL 6-20 CREATININE (test code = 2214) 0.83 MG/DL 0.60-1.30 eGFR (2020 CKD-EPI) (test co de = 08392) 85 ML/MIN/1.73 >60 SODIUM (test code = [...] 12.7 SECONDS 12.5-14.7 INR (test code = 61270) 0.9 SEE BELOW CURRENT RECOMMENDATIONS ARE FOR AN INR OF 2.0-3.0 FOR ALL PATIENTS ON VITAMIN K ANTAGONISTS, EXCEPT THOSE WITH PROSTHETIC HEART VALVES, FOR WHOM INR OF 2.5-3.5 IS RECOMMENDED. UNLESS OTHERWISE INDICATED, ALL TESTING PERFORMED AT [facility] [address] [place] [address] [employer] M[employer]: JANNY STEINER M.D. CLIA NUMBER [id number] [facility] [place]. [id number] CBC W/AUTO DIFF WITH [id number] 01:54:17* Test Item Value Reference Range Interpretation [...] = 1065) 0.0 /100 WBC'S See_Comment [Automated [employer] ge] The system which generated this result [...] H ABS NUCLEATED RBCS (test code = 60537) 0.00 K/UL 0.00-0.11 ECG 12 [id number] 14:02:48Ventricular Rate 102 BPMAtrial Rate 102 BPMP-R Interval 146 msQRS Duration 90 msQ-T Interval 372 msQTC Calculation(Bazett) 484 msP [place] 11 degreesR [place] -53 degreesT [place] 29 degrees Sinus tachycardiaPossible Left atrial enlargementLeft axis deviationPoor R wave progression Cannot rule out Anterior infarct , age undetermined vs lead misplacementNonspecific T wave abnormalityProlonged QTAbnormal ECGNo previous ECGs availableConfirmed by David GARCIA, KYLE ([id number]) on 04/06/2023 2:02:46 [facility] CONTRAST & [id number] 13:11:39Transthoracic Echocardiography Report (TTE) Demographics Patient Name YUE LAWS Date of Study 03/31/2023 ESTELLE Gender Female Visit Number [id number] Race Room Number 2227 Number Date of 1970 Referring Physician Mariah Aldridge MD Age 53 year(s) Fuller Brush Man Wilmer Francois Toppiece Chopper Josefina Corbett RDCS Interpreting Physician Melody MDProcedure [...] 0.74 m/s Mean Gradient: 2.54 mmHg LVOT Diameter:2.19 cm LVOT VTI: 20.18 cm LVOT Area: 3.77 cm^2 LVOT SV:75.98 ml LVOT CO: 5.7 l/min LVOT CI: 2.97 l/min/m^2 Tricuspid Valve TR Velocity: 2.73 m/s TR Gradient: 29.86 mmHg Pulmonic Valve Peak Velocity:0.74 m/s Peak Gradient: 2.22 mmHgCollege Medical CenterXR chest 1 view portable / [id number] 15:39:07TECHNIQUE: Frontal view of the chest. INDICATION: CHf. COMPARISON: None. FINDINGS: LINES/TUBES: None. HEART AND MEDIASTINUM: Cardiomediastinal contour is within normallimits. LUNGS: The lungs are well inflated and clear. No consolidation orpulmonary edema. PLEURA: No pneumothorax. No significant pleural effusion. SOFT TISSUES AND BONES: Cervical spinal fixation hardware is noted.[facility] CenterXR CHEST 1 VIEW PORTABLE / [id number] 15:39:07 [facility] : 1970 Sex: FTECHNIQUE: Frontal view of the chest.INDICATION: CHf.COMPARISON: None.FINDINGS:LINES/TUBES: None.HE ART AND MEDIASTINUM: Cardiomediastinal contour is within normallimits. LUNGS: The lungs are well inflated and clear. No consolidation orpulmonary edema.PLEURA: No pneumothorax. No significant pleuraleffusion.SOFT TISSUES AND BONES: Cervical spinal fixation hardware is noted.IMPRESSION:No acute card iopulmonary process.Electronically Signed By: Jose Carlos Lebron04/01/2023 15:41 CDTWorkstation Name: [id number] NATRIURETIC FACTOR (BNP)2023-04-01 14:15:07* Test Item Value Reference Range Interpretation Comme nts B-TYPE NATRIURETIC PEPTIDE ( BEAKER) (test code = 700) 192 pg/mL 0-100 H Land Leveler ID - ADMINMR spine cervical without IV [id number] 11:30:35MRI cervical spine without contrast CLINICAL HISTORY: [...] and paraspinal soft tissues are within normal limits.[facility] CenterMR CERVICAL SPINE WITHOUT IV [id number] 11:30:35 [facility] : 1970 Sex: [...] Signed By: Maxim Sultana03/31/2023 11:32 CDTWorkstation Name: [id number] METABOLIC [id number] 04:43:14* Test Item Value Reference Range Interpretation [...] GFR is not applicable for dialysis patients Land Leveler GEOVANNA CORREA [facility] (HEMOGRAM ONLY)2023-03-31 04:20:07* Test Item Value Reference [...] 0 /100 WBC 0-0 Arterial doppler legs [id number] 17:44:07PV LAB - Lower Extremity Arterial Duplex Demographics Patient Name YUE LAWS Date of Study ESTELLE Age 53 Visit Number [id number] Gender Female Accession Number [id number] Date of 1970 Referring Mariah Aldridge, Room Number 2227 Physician Fuller Brush Man Yovana Akins Interpreting John Solorio, Physician FellowProcedureType [...] + + + + + + !Prox MORTGAGE FIELD INSPECTOR ! !32 ! !Biphasic ! !60.9 ! !Triphasic ! +-- + + + + + + + + + !Mid MORTGAGE FIELD INSPECTOR ! !25.9 ! !Biphasic ! !59.7 ! !Triphasic ! + + + + + + + + + + !Dist MORTGAGE FIELD INSPECTOR ! !33.2 ! !Biphasic ! !37.4 ! [...] ! !Biphasic ! !23.6 ! !Biphasic ! +----- + + + + + + + + +[facility] CenterABI's Only(Ankle/Brachial Index)2023-03-30 17:13:47PV LAB - Lower Extremity Arterial Procedure Demographics Patient Name YUE LAWS Date of Study 03/30/2023 ESTELLE Age 53 Visit Number [id number] Gender Female Accession Number [id number] Date of 1970 Referring Mariah Aldridge, Room Number 2227 Physician Fuller Brush Man Yovana Akins Interpreting John Solorio, Physician FellowProcedureType [...] in cm/s ; Diameters are measured in cmCSt. Rose HospitalMR thoracic spine without IV [id number] 12:50:50MR THORACIC SPINE WITHOUT IV CONTRAST INDICATION: [...] and further reported on MRI lumbar spine. [facility] CenterMR THORACIC SPINE WITHOUT IV [id number] 12:50:50[facility] : 1970 Sex: [...] abnormality. T10-11 moderate right neural foraminal stenosis crmG57-10 moderate bilateral foraminal stenosis due to facet [...] Signed By: Ryan Buckley03/30/2023 12:52 CDTWorkstation Name: [id number] spine lumbar without IV zhogkvjw0149-02-29 12:33:57MR LUMBAR SPINE WITHOUT IV CONTRAST INDICATION: Unlisted Reason for ExamConcern for cord compression COMPARISON: None TECHNIQUE: Multiplanar, multisequence MR images of the lumbar spinewithout contrast. FINDINGS: For the purposes of this dictation, the 5 lowermost oaotwu-lnnhqfbzmxmxq-pvnc vertebral bodies are labeled L1-L5.Alignment of the [...] with mild to moderatebilateral neural foraminal stenosisCHI [facility] CenterMR LUMBAR SPINE WITHOUT IV [id number] 12:33:57 [facility] : 1970 Sex: FMR LUMBAR SPINE WITHOUT IV CONTRASTINDICATION: Unlisted Reason for ExamConcern for cord compressionCOMPARISON: NoneTECHNIQUE: Multiplanar, multisequence MR images of the lumbar spinewithout contrast. FINDINGS: For the purposes of this dictation, the 5 lowermost mjrcky-dwmmrougjvumg-yavf vertebral bodies are labeled L1- L5.Alignment of the lumbar spine is within normal limits. Vertebral body height is maintained. Bone marrow edema is seen at the inferior L3 and superior L4 vertebralbodies and bilateral L4 pedicles, favored to be degenerative in nature.Suggestion of a synovial cyst at the ynxbpD92-I76 level (series 301image eight).No spinal cord signal [...] flavum buckling versus synovial cyst at the zhjrwF74-Q87 level (series 301image eight). MRI thoracic spine can beconsidered for further evaluation.7. Mild clumping of the cauda equina nerve roots, which is nonspecificbut may represent arachnoiditis. Postcontrast imaging can be consideredfor further evaluation.Electronically Signed By: Maxim Sultana03/30/2023 12:36 CDTWorkstation Name: [id number] 11:45:01* Test Item Value Reference Range Interpretation [...] 5.7- 6.4% indicates increased risk for diabetes (prediabetes)."Land Leveler ID - ADMEEG AWAKE AND [id number] 09:57:53Steph Martinez MD 03/30/2023 9:[address] Type: Inpatient, outpatient, EMUDATE(s) OF EE03/30/23DATE OF REPORT: 03/30/23MRN: [id number] of : 1970EE-1454Start time: 08:36Stop time: :23ICD-10: R56.9 CPT Code: 36173 (awake and asleep)HISTORY: 53 y/o female with [...] EEG recordings. Steph Elias MD, MPHNeurophysiology/Epilepsy AttendingCHI [facility] EEG AWAKE AND [id number] 09:57:53Steph Martinez MD 03/30/2023 9:59 AMELECTROENCEPHALOGRAM FOR [facility] EEG Type: Inpatient, outpatient, EMUDATE(s) OF EE03/30/23DATE OF REPORT: 03/30/23MRN: [id number] of : 1970EE-1454Start time: 08:36Stop time: 09:23ICD-10: R56.9 CPT Code: 40758 (awake and asleep)HISTORY: 53 y/o female with [...] additional EEG recordings. Steph Elias MD, MPHNeurophysiology/Epilepsy AttendingCollege Medical Center EEG AWAKE AND [id number]:57:53Steph Martinez MD 03/30/2023 9:[address] EEG Type: Inpatient, outpatient, EMUDATE(s) OF EE03/30/23DATE OF REPORT: 03/30/23MRN: [id number] of : 1970EE-1454Start time: 08:36Stop time: 09:23ICD-10: R56.9 CPT Code: 37207 (awake and asleep)HISTORY: 53 y/o female with [...] EEG recordings. Steph Elias MD, MPHNeurophysiology/Epilepsy AttendingCH[facility] VALPROIC ACID LEVEL, [id number] 09:42:31* Test Item Value Reference Range Interpretation Comme nts VALPROIC ACID TOTAL (BEAKER) (test code = 924) 76 ug/mL 50-100 Therapeutic range for some clinical conditions may be >100 ug/mLUrinalysis w/Microscopic + Reflex to [id number] 08:43:51* Test Item Value Reference Range Interpretation Comme nts Color, UA (test code = 5778-6) Yellow Clarity, UA (test code = 5767-9) Clear Specific [place], UA (test code = 5811-5) 1.033 1.001-1.035 pH, UA (test code = 5803-2) 6.0 5.0-8.0 Protein, UA (test code = 21648-5) 30 mg/dL Negative A Glucose, UA (test code = 365) Negative Negative Ketones, UA (test code = 2514-8) Negative Negative Bilirubin, UA (test code = 34452-4) Negative Negative Blood, UA (test code = 29274-5) Small Negative A Nitrite, UA (test code = 5802-4) Negative Negative Leukocytes, UA (test code = 5799-2) Negative Negative Urobilinogen, UA (test code = 14762-5) 0.2 0.2-1.0 RBC, UA (test code = 18875-3) 51 See_Comment [Automated message] The system which [...] Occasional Squam Epithel, UA (test code = 60284-6) See_Comment [Automated message] The system which generated this result transmitted reference range: /HPF. The reference range was not used to interpret this result as normal/abnormal. Specimen Source (test code = 2795) LYNDSAY (test code = LYNDSAY) Land Leveler ID - [auto]Land Leveler ID - tech Lab Interpretation (test code = 69865-7) [facility]normal [facility] Center[facility] + Reflex to Culture 2023-03-30 08:43:51* Test Item Value Reference Range Interpretation Comme nts Color, UA (test code = 5778-6) Yellow Clarity, UA (test code = 5767-9) Clear Specific [place], UA (test code = 5811-5) 1.033 1.001-1.035 pH, UA (test code = 5803-2) 6.0 5.0-8.0 Protein, UA (test code = 98997-8) 30 mg/dL Negative A Glucose, UA (test code = 365) Negative Negative Ketones, UA (test code = 2514-8) Negative Negative Bilirubin, UA (test code = 41309-0) Negative Negative Blood, UA (test code = 29085-6) Small Negative A Nitrite, UA (test code = 5802-4) Negative Negative Leukocytes, UA (test code = 5799-2) Negative Negative Urobilinogen, UA (test code = 26614-3) 0.2 0.2-1.0 RBC, UA (test code = 27908-0) 51 See_Comment [Automated message] The system which [...] Occasional Squam Epithel, UA (test code = 88961-0) See_Comment [Automated message] The system which generated this result transmitted reference range: /HPF. The reference range was not used to interpret this result as normal/abnormal. Specimen Source (test code = 2795) LYNDSAY (test code = LYNDSAY) Land Leveler ID - [auto]Land Leveler ID - tech Lab Interpretation (test code = 53743-3) [facility]normal [facility] + Reflex to Culture 2023-03-30 08:43:51* Test Item Value Reference Range Interpretation Comme nts Color, UA (test code = 5778-6) Yellow Clarity, UA (test code = 5767-9) Clear Specific [place], UA (test code = 5811-5) 1.033 1.001-1.035 pH, UA (test code = 5803-2) 6.0 5.0-8.0 Protein, UA (test code = 26405-5) 30 mg/dL Negative A Glucose, UA (test code = 365) Negative Negative Ketones, UA (test code = 2514-8) Negative Negative Bilirubin, UA (test code = 74699-6) Negative Negative Blood, UA (test code = 23492-8) Small Negative A Nitrite, UA (test code = 5802-4) Negative Negative Leukocytes, UA (test code = 5799-2) Negative Negative Urobilinogen, UA (test code = 68142-7) 0.2 0.2-1.0 RBC, UA (test code = 72240-2) 51 See_Comment [Automated message] The system which [...] Occasional Squam Epithel, UA (test code = 23244-2) See_Comment [Automated message] The system which generated this result transmitted reference range: /HPF. The reference range was not used to interpret this result as normal/abnormal. Specimen Source (test code = 2795) LYNDSAY (test code = LYNDSAY) Land Leveler ID - [auto]Land Leveler ID - tech Lab Interpretation (test code = 66517-8) Abnormal [facility] CenterUrinalysis w/Microscopic + Reflex to Culture 2023-03-30 08:43:51* Test Item Value Reference Range Interpretation Comme nts Color, UA (test code = 5778-6) Yellow Clarity, UA (test code = 5767-9) Clear Specific [place], UA (test code = 5811-5) 1.033 1.001-1.035 pH, UA (test code = 5803-2) 6.0 5.0-8.0 Protein, UA (test code = 79000-7) 30 mg/dL Negative A Glucose, UA (test code = 365) Negative Negative Ketones, UA (test code = 2514-8) Negative Negative Bilirubin, UA (test code = 25476-1) Negative Negative Blood, UA (test code = 09936-7) Small Negative A Nitrite, UA (test code = 5802-4) Negative Negative Leukocytes, UA (test code = 5799-2) Negative Negative Urobilinogen, UA (test code = 68297-5) 0.2 0.2-1.0 RBC, UA (test code = 74362-3) 51 See_Comment [Automated message] The system which [...] Occasional Squam Epithel, UA (test code = 71257-4) See_Comment [Automated message] The system which generated this result transmitted reference range: /HPF. The reference range was not used to interpret this result as normal/abnormal. Specimen Source (test code = 2795) LYNDSAY (test code = LYNDSAY) Land Leveler ID - [auto]Land Leveler ID - tech Lab Interpretation (test code = 11117-4) Abnormal [facility] CenterUrinalysis w/Microscopic + Reflex to Culture 2023-03-30 08:43:51* Test Item Value Reference Range Interpretation Comme nts Color, UA (test code = 5778-6) Yellow Clarity, UA (test code = 5767-9) Clear Specific [place], UA (test code = 5811-5) 1.033 1.001-1.035 pH, UA (test code = 5803-2) 6.0 5.0-8.0 Protein, UA (test code = 29792-8) 30 mg/dL Negative A Glucose, UA (test code = 365) Negative Negative Ketones, UA (test code = 2514-8) Negative Negative Bilirubin, UA (test code = 93438-3) Negative Negative Blood, UA (test code = 52917-2) Small Negative A Nitrite, UA (test code = 5802-4) Negative Negative Leukocytes, UA (test code = 5799-2) Negative Negative Urobilinogen, UA (test code = 04297-9) 0.2 0.2-1.0 RBC, UA (test code = 60278-0) 51 See_Comment [Automated message] The system which [...] Occasional Squam Epithel, UA (test code = 70709-7) See_Comment [Automated message] The system which generated this result transmitted reference range: /HPF. The reference range was not used to interpret this result as normal/abnormal. Specimen Source (test code = 2795) LYNDSAY (test code = LYNDSAY) Land Leveler ID - [auto]Land Leveler ID - tech Lab Interpretation (test code = 10300-7) [facility]normal [facility] + Reflex to Culture 2023-03-30 08:43:51* Test Item Value Reference Range Interpretation Comme nts Color, UA (test code = 5778-6) Yellow Clarity, UA (test code = 5767-9) Clear Specific [place], UA (test code = 5811-5) 1.033 1.001-1.035 pH, UA (test code = 5803-2) 6.0 5.0-8.0 Protein, UA (test code = 72130-7) 30 mg/dL Negative A Glucose, UA (test code = 365) Negative Negative Ketones, UA (test code = 2514-8) Negative Negative Bilirubin, UA (test code = 38596-8) Negative Negative Blood, UA (test code = 39418-6) Small Negative A Nitrite, UA (test code = 5802-4) Negative Negative Leukocytes, UA (test code = 5799-2) Negative Negative Urobilinogen, UA (test code = 45372-7) 0.2 0.2-1.0 RBC, UA (test code = 21946-3) 51 See_Comment [Automated message] The system which [...] Occasional Squam Epithel, UA (test code = 18292-0) See_Comment [Automated message] The system which generated this result transmitted reference range: /HPF. The reference range was not used to interpret this result as normal/abnormal. Specimen Source (test code = 2795) LYNDSAY (test code = LYNDSAY) Land Leveler ID - [auto]Land Leveler ID - tech Lab Interpretation (test code = 08359-3) Abnormal [facility] CenterUr[facility]ysis w/Microscopic + Reflex to Culture 2023-03-30 08:43:51* Test Item Value Reference Range Interpretation Comme nts Color, UA (test code = 5778-6) Yellow Clarity, UA (test code = 5767-9) Clear Specific [place], UA (test code = 5811-5) 1.033 1.001-1.035 pH, UA (test code = 5803-2) 6.0 5.0-8.0 Protein, UA (test code = 56286-7) 30 mg/dL Negative A Glucose, UA (test code = 365) Negative Negative Ketones, UA (test code = 2514-8) Negative Negative Bilirubin, UA (test code = 15161-7) Negative Negative Blood, UA (test code = 54971-9) Small Negative A Nitrite, UA (test code = 5802-4) Negative Negative Leukocytes, UA (test code = 5799-2) Negative Negative Urobilinogen, UA (test code = 46947-8) 0.2 0.2-1.0 RBC, UA (test code = 59045-1) 51 See_Comment [Automated message] The system which [...] Occasional Squam Epithel, UA (test code = 30949-2) See_Comment [Automated message] The system which generated this result transmitted reference range: /HPF. The reference range was not used to interpret this result as normal/abnormal. Specimen Source (test code = 2795) LYNDSAY (test code = LYNDSAY) Land Leveler ID - [auto]Land Leveler ID - tech Lab Interpretation (test code = 06474-0) Abnormal [facility] CenterUrinalysis w/Microscopic + Reflex to Culture 2023-03-30 08:43:51* Test Item Value Reference Range Interpretation Comme nts Color, UA (test code = 5778-6) Yellow Clarity, UA (test code = 5767-9) Clear Specific [place], UA (test code = 5811-5) 1.033 1.001-1.035 pH, UA (test code = 5803-2) 6.0 5.0-8.0 Protein, UA (test code = 94370-8) 30 mg/dL Negative A Glucose, UA (test code = 365) Negative Negative Ketones, UA (test code = 2514-8) Negative Negative Bilirubin, UA (test code = 88032-7) Negative Negative Blood, UA (test code = 59426-2) Small Negative A Nitrite, UA (test code = 5802-4) Negative Negative Leukocytes, UA (test code = 5799-2) Negative Negative Urobilinogen, UA (test code = 10416-7) 0.2 0.2-1.0 RBC, UA (test code = 71789-8) 51 See_Comment [Automated message] The system which [...] Occasional Squam Epithel, UA (test code = 51086-4) See_Comment [Automated message] The system which generated this result transmitted reference range: /HPF. The reference range was not used to interpret this result as normal/abnormal. Specimen Source (test code = 2795) LYNDSAY (test code = LYNDSAY) Land Leveler ID - [auto]Land Leveler ID - tech Lab Interpretation (test code = 04377-8) [facility] + Reflex to Culture 2023-03-30 08:43:51* Test Item Value Reference Range Interpretation Comme nts Color, UA (test code = 5778-6) Yellow Clarity, UA (test code = 5767-9) Clear Specific [place], UA (test code = 5811-5) 1.033 1.001-1.035 pH, UA (test code = 5803-2) 6.0 5.0-8.0 Protein, UA (test code = 66664-5) 30 mg/dL Negative A Glucose, UA (test code = 365) Negative Negative Ketones, UA (test code = 2514-8) Negative Negative Bilirubin, UA (test code = 14097-1) Negative Negative Blood, UA (test code = 76522-7) Small Negative A Nitrite, UA (test code = 5802-4) Negative Negative Leukocytes, UA (test code = 5799-2) Negative Negative Urobilinogen, UA (test code = 72376-4) 0.2 0.2-1.0 RBC, UA (test code = 82873-8) 51 See_Comment [Automated message] The system which [...] Occasional Squam Epithel, UA (test code = 36958-7) See_Comment [Automated message] The system which generated this result transmitted reference range: /HPF. The reference range was not used to interpret this result as normal/abnormal. Specimen Source (test code = 2795) LYNDSAY (test code = LYNDSAY) Land Leveler ID - [auto]Land Leveler ID - tech Lab Interpretation (test code = 45169-2) [facility] + Reflex to Culture 2023-03-30 08:43:51* Test Item Value Reference Range Interpretation Comme nts Color, UA (test code = 5778-6) Yellow Clarity, UA (test code = 5767-9) Clear Specific [place], UA (test code = 5811-5) 1.033 1.001-1.035 pH, UA (test code = 5803-2) 6.0 5.0-8.0 Protein, UA (test code = 33295-0) 30 mg/dL Negative A Glucose, UA (test code = 365) Negative Negative Ketones, UA (test code = 2514-8) Negative Negative Bilirubin, UA (test code = 39556-9) Negative Negative Blood, UA (test code = 26007-7) Small Negative A Nitrite, UA (test code = 5802-4) Negative Negative Leukocytes, UA (test code = 5799-2) Negative Negative Urobilinogen, UA (test code = 00142-0) 0.2 0.2-1.0 RBC, UA (test code = 23523-8) 51 See_Comment [Automated message] The system which [...] Occasional Squam Epithel, UA (test code = 06052-9) See_Comment [Automated message] The system which generated this result transmitted reference range: /HPF. The reference range was not used to interpret this result as normal/abnormal. Specimen Source (test code = 2795) LYNDSAY (test code = LYNDSAY) Land Leveler ID - [auto]Land Leveler ID - tech Lab Interpretation (test code = 70392-2) Abnormal [facility] w/Microscopic + Reflex to Culture 2023-03-30 08:43:51* Test Item Value Reference Range Interpretation Comme nts Color, UA (test code = 5778-6) Yellow Clarity, UA (test code = 5767-9) Clear Specific [place], UA (test code = 5811-5) 1.033 1.001-1.035 pH, UA (test code = 5803-2) 6.0 5.0-8.0 Protein, UA (test code = 86980-0) 30 mg/dL Negative A Glucose, UA (test code = 365) Negative Negative Ketones, UA (test code = 2514-8) Negative Negative Bilirubin, UA (test code = 26497-3) Negative Negative Blood, UA (test code = 22431-5) Small Negative A Nitrite, UA (test code = 5802-4) Negative Negative Leukocytes, UA (test code = 5799-2) Negative Negative Urobilinogen, UA (test code = 11565-8) 0.2 0.2-1.0 RBC, UA (test code = 32932-1) 51 See_Comment [Automated message] The system which [...] Occasional Squam Epithel, UA (test code = 35821-4) See_Comment [Automated message] The system which generated this result transmitted reference range: /HPF. The reference range was not used to interpret this result as normal/abnormal. Specimen Source (test code = 2795) LYNDASY (test code = LYNDSAY) Land Leveler ID - [auto]Land Leveler ID - tech Lab Interpretation (test code = 93608-8) [facility]-30 08:43:51* Test Item Value Reference Range Interpretation Comme nts Color, UA (test code = 5778-6) Yellow Clarity, UA (test code = 5767-9) Clear Specific [place], UA (test code = 5811-5) 1.033 1.001-1.035 pH, UA (test code = 5803-2) 6.0 5.0-8.0 Protein, UA (test code = 85256-9) 30 mg/dL Negative A Glucose, UA (test code = 365) Negative Negative Ketones, UA (test code = 2514-8) Negative Negative Bilirubin, UA (test code = 61388-4) Negative Negative Blood, UA (test code = 58244-6) Small Negative A Nitrite, UA (test code = 5802-4) Negative Negative Leukocytes, UA (test code = 5799-2) Negative Negative Urobilinogen, UA (test code = 44759-3) 0.2 0.2-1.0 RBC, UA (test code = 82141-3) 51 See_Comment [Automated message] The system which [...] Occasional Squam Epithel, UA (test code = 57200-1) See_Comment [Automated message] The system which generated this result transmitted reference range: /HPF. The reference range was not used to interpret this result as normal/abnormal. Specimen Source (test code = 2795) LYNDSAY (test code = LYNDSAY) Land Leveler ID - [auto]Land Leveler ID - tech Lab Interpretation (test code = 53281-5) [facility]lex [facility] Culture 2023-03-30 08:43:51* Test Item Value Reference Range Interpretation Comme nts Color, UA (test code = 5778-6) Yellow Clarity, UA (test code = 5767-9) Clear Specific [place], UA (test code = 5811-5) 1.033 1.001-1.035 pH, UA (test code = 5803-2) 6.0 5.0-8.0 Protein, UA (test code = 27856-5) 30 mg/dL Negative A Glucose, UA (test code = 365) Negative Negative Ketones, UA (test code = 2514-8) Negative Negative Bilirubin, UA (test code = 32029-7) Negative Negative Blood, UA (test code = 19324-1) Small Negative A Nitrite, UA (test code = 5802-4) Negative Negative Leukocytes, UA (test code = 5799-2) Negative Negative Urobilinogen, UA (test code = 81225-1) 0.2 0.2-1.0 RBC, UA (test code = 89150-2) 51 See_Comment [Automated message] The system which [...] Occasional Squam Epithel, UA (test code = 63566-1) See_Comment [Automated message] The system which generated this result transmitted reference range: /HPF. The reference range was not used to interpret this result as normal/abnormal. Specimen Source (test code = 2795) LYNDSAY (test code = LYNDSAY) Land Leveler ID - [auto]Land Leveler ID - tech Lab Interpretation (test code = 86175-7) [facility] Reflex [facility] Culture 2023-03-30 08:43:51* Test Item Value Reference Range Interpretation Comme nts Color, UA (test code = 5778-6) Yellow Clarity, UA (test code = 5767-9) Clear Specific [place], UA (test code = 5811-5) 1.033 1.001-1.035 pH, UA (test code = 5803-2) 6.0 5.0-8.0 Protein, UA (test code = 96825-6) 30 mg/dL Negative A Glucose, UA (test code = 365) Negative Negative Ketones, UA (test code = 2514-8) Negative Negative Bilirubin, UA (test code = 69957-3) Negative Negative Blood, UA (test code = 98811-3) Small Negative A Nitrite, UA (test code = 5802-4) Negative Negative Leukocytes, UA (test code = 5799-2) Negative Negative Urobilinogen, UA (test code = 77405-4) 0.2 0.2-1.0 RBC, UA (test code = 02372-7) 51 See_Comment [Automated message] The system which [...] Occasional Squam Epithel, UA (test code = 17490-5) See_Comment [Automated message] The system which generated this result transmitted reference range: /HPF. The reference range was not used to interpret this result as normal/abnormal. Specimen Source (test code = 2795) LYNDSAY (test code = LYNDSAY) Land Leveler ID - [auto]Land Leveler ID - tech Lab Interpretation (test code = 08519-9) [facility] Reflex [facility] Culture 2023-03-30 08:43:51* Test Item Value Reference Range Interpretation Comme nts Color, UA (test code = 5778-6) Yellow Clarity, UA (test code = 5767-9) Clear Specific [place], UA (test code = 5811-5) 1.033 1.001-1.035 pH, UA (test code = 5803-2) 6.0 5.0-8.0 Protein, UA (test code = 30677-1) 30 mg/dL Negative A Glucose, UA (test code = 365) Negative Negative Ketones, UA (test code = 2514-8) Negative Negative Bilirubin, UA (test code = 82169-4) Negative Negative Blood, UA (test code = 14309-0) Small Negative A Nitrite, UA (test code = 5802-4) Negative Negative Leukocytes, UA (test code = 5799-2) Negative Negative Urobilinogen, UA (test code = 01847-9) 0.2 0.2-1.0 RBC, UA (test code = 34449-2) 51 See_Comment [Automated message] The system which [...] Occasional Squam Epithel, UA (test code = 71669-0) See_Comment [Automated message] The system which generated this result transmitted reference range: /HPF. The reference range was not used to interpret this result as normal/abnormal. Specimen Source (test code = 2795) LYNDSAY (test code = LYNDSAY) Land Leveler ID - [auto]Land Leveler ID - tech Lab Interpretation (test code = 19374-7) [facility]:43:51* Test Item Value Reference Range Interpretation Comme nts Color, UA (test code = 5778-6) Yellow Clarity, UA (test code = 5767-9) Clear Specific [place], UA (test code = 5811-5) 1.033 1.001-1.035 pH, UA (test code = 5803-2) 6.0 5.0-8.0 Protein, UA (test code = 19027-9) 30 mg/dL Negative A Glucose, UA (test code = 365) Negative Negative Ketones, UA (test code = 2514-8) Negative Negative Bilirubin, UA (test code = 82342-9) Negative Negative Blood, UA (test code = 79956-0) Small Negative A Nitrite, UA (test code = 5802-4) Negative Negative Leukocytes, UA (test code = 5799-2) Negative Negative Urobilinogen, UA (test code = 16875-4) 0.2 0.2-1.0 RBC, UA (test code = 15451-9) 51 See_Comment [Automated message] The system which [...] Occasional Squam Epithel, UA (test code = 49098-1) See_Comment [Automated message] The system which generated this result transmitted reference range: /HPF. The reference range was not used to interpret this result as normal/abnormal. Specimen Source (test code = 2795) LYNDSAY (test code = LYNDSAY) Land Leveler ID - [auto]Land Leveler ID - tech Lab Interpretation (test code = 06541-4) [facility] 08:43:51* Test Item Value Reference Range Interpretation Comme nts Color, UA (test code = 5778-6) Yellow Clarity, UA (test code = 5767-9) Clear Specific [place], UA (test code = 5811-5) 1.033 1.001-1.035 pH, UA (test code = 5803-2) 6.0 5.0-8.0 Protein, UA (test code = 82215-8) 30 mg/dL Negative A Glucose, UA (test code = 365) Negative Negative Ketones, UA (test code = 2514-8) Negative Negative Bilirubin, UA (test code = 88297-2) Negative Negative Blood, UA (test code = 33562-2) Small Negative A Nitrite, UA (test code = 5802-4) Negative Negative Leukocytes, UA (test code = 5799-2) Negative Negative Urobilinogen, UA (test code = 52067-8) 0.2 0.2-1.0 RBC, UA (test code = 72086-6) 51 See_Comment [Automated message] The system which [...] Occasional Squam Epithel, UA (test code = 66113-0) See_Comment [Automated message] The system which generated this result transmitted reference range: /HPF. The reference range was not used to interpret this result as normal/abnormal. Specimen Source (test code = 2795) LYNDSAY (test code = LYNDSAY) Land Leveler ID - [auto]Land Leveler ID - tech Lab Interpretation (test code = 26477-2) [facility]23[facility]30 08:43:51* Test Item Value Reference Range Interpretation Comme nts Color, UA (test code = 5778-6) Yellow Clarity, UA (test code = 5767-9) Clear Specific [place], UA (test code = 5811-5) 1.033 1.001-1.035 pH, UA (test code = 5803-2) 6.0 5.0-8.0 Protein, UA (test code = 83431-7) 30 mg/dL Negative A Glucose, UA (test code = 365) Negative Negative Ketones, UA (test code = 2514-8) Negative Negative Bilirubin, UA (test code = 34424-7) Negative Negative Blood, UA (test code = 04542-6) Small Negative A Nitrite, UA (test code = 5802-4) Negative Negative Leukocytes, UA (test code = 5799-2) Negative Negative Urobilinogen, UA (test code = 17135-8) 0.2 0.2-1.0 RBC, UA (test code = 70549-0) 51 See_Comment [Automated message] The system which [...] Occasional Squam Epithel, UA (test code = 28294-8) See_Comment [Automated message] The system which generated this result transmitted reference range: /HPF. The reference range was not used to interpret this result as normal/abnormal. Specimen Source (test code = 2795) LYNDSAY (test code = LYNDSAY) Land Leveler ID - [auto]Land Leveler ID - tech Lab Interpretation (test code = 02063-5) [facility]30 08:43:51* Test Item Value Reference Range Interpretation Comme nts Color, UA (test code = 5778-6) Yellow Clarity, UA (test code = 5767-9) Clear Specific [place], UA (test code = 5811-5) 1.033 1.001-1.035 pH, UA (test code = 5803-2) 6.0 5.0-8.0 Protein, UA (test code = 81433-0) 30 mg/dL Negative A Glucose, UA (test code = 365) Negative Negative Ketones, UA (test code = 2514-8) Negative Negative Bilirubin, UA (test code = 30898-9) Negative Negative Blood, UA (test code = 35003-3) Small Negative A Nitrite, UA (test code = 5802-4) Negative Negative Leukocytes, UA (test code = 5799-2) Negative Negative Urobilinogen, UA (test code = 58778-5) 0.2 0.2-1.0 RBC, UA (test code = 33956-2) 51 See_Comment [Automated message] The system which [...] Occasional Squam Epithel, UA (test code = 82741-2) See_Comment [Automated message] The system which generated this result transmitted reference range: /HPF. The reference range was not used to interpret this result as normal/abnormal. Specimen Source (test code = 2795) LYNDSAY (test code = LYNDSAY) Land Leveler ID - [auto]Land Leveler ID - tech Lab Interpretation (test code = 05811-6) [facility] Reflex [facility] Culture 2023-03-30 08:43:51* Test Item Value Reference Range Interpretation Comme nts Color, UA (test code = 5778-6) Yellow Clarity, UA (test code = 5767-9) Clear Specific [place], UA (test code = 5811-5) 1.033 1.001-1.035 pH, UA (test code = 5803-2) 6.0 5.0-8.0 Protein, UA (test code = 46119-3) 30 mg/dL Negative A Glucose, UA (test code = 365) Negative Negative Ketones, UA (test code = 2514-8) Negative Negative Bilirubin, UA (test code = 35447-3) Negative Negative Blood, UA (test code = 76320-6) Small Negative A Nitrite, UA (test code = 5802-4) Negative Negative Leukocytes, UA (test code = 5799-2) Negative Negative Urobilinogen, UA (test code = 08117-9) 0.2 0.2-1.0 RBC, UA (test code = 71490-8) 51 See_Comment [Automated message] The system which [...] Occasional Squam Epithel, UA (test code = 62973-7) See_Comment [Automated message] The system which generated this result transmitted reference range: /HPF. The reference range was not used to interpret this result as normal/abnormal. Specimen Source (test code = 2795) LYNDSAY (test code = LYNDSAY) Land Leveler ID - [auto]Land Leveler ID - tech Lab Interpretation (test code = 81139-6) [facility] Reflex [facility] Culture 2023-03-30 08:43:51* Test Item Value Reference Range Interpretation Comme nts Color, UA (test code = 5778-6) Yellow Clarity, UA (test code = 5767-9) Clear Specific [place], UA (test code = 5811-5) 1.033 1.001-1.035 pH, UA (test code = 5803-2) 6.0 5.0-8.0 Protein, UA (test code = 61074-1) 30 mg/dL Negative A Glucose, UA (test code = 365) Negative Negative Ketones, UA (test code = 2514-8) Negative Negative Bilirubin, UA (test code = 13528-0) Negative Negative Blood, UA (test code = 76659-8) Small Negative A Nitrite, UA (test code = 5802-4) Negative Negative Leukocytes, UA (test code = 5799-2) Negative Negative Urobilinogen, UA (test code = 31434-4) 0.2 0.2-1.0 RBC, UA (test code = 79197-1) 51 See_Comment [Automated message] The system which [...] Occasional Squam Epithel, UA (test code = 98215-0) See_Comment [Automated message] The system which generated this result transmitted reference range: /HPF. The reference range was not used to interpret this result as normal/abnormal. Specimen Source (test code = 2795) LYNDSAY (test code = LYNDSAY) Land Leveler ID - [auto]Land Leveler ID - tech Lab Interpretation (test code = 37873-2) [facility]normal [facility] Reflex [facility] Culture 2023-03-30 08:43:51* Test Item Value Reference Range Interpretation Comme nts Color, UA (test code = 5778-6) Yellow Clarity, UA (test code = 5767-9) Clear Specific [place], UA (test code = 5811-5) 1.033 1.001-1.035 pH, UA (test code = 5803-2) 6.0 5.0-8.0 Protein, UA (test code = 49354-4) 30 mg/dL Negative A Glucose, UA (test code = 365) Negative Negative Ketones, UA (test code = 2514-8) Negative Negative Bilirubin, UA (test code = 46331-4) Negative Negative Blood, UA (test code = 11911-4) Small Negative A Nitrite, UA (test code = 5802-4) Negative Negative Leukocytes, UA (test code = 5799-2) Negative Negative Urobilinogen, UA (test code = 22674-3) 0.2 0.2-1.0 RBC, UA (test code = 65559-6) 51 See_Comment [Automated message] The system which [...] Occasional Squam Epithel, UA (test code = 80234-3) See_Comment [Automated message] The system which generated this result transmitted reference range: /HPF. The reference range was not used to interpret this result as normal/abnormal. Specimen Source (test code = 2795) LYNDSAY (test code = LYNDSAY) Land Leveler ID - [auto]Land Leveler ID - tech Lab Interpretation (test code = 02139-8) [facility]23-[facility]-30 08:43:51* Test Item Value Reference Range Interpretation Comme nts Color, UA (test code = 5778-6) Yellow Clarity, UA (test code = 5767-9) Clear Specific [place], UA (test code = 5811-5) 1.033 1.001-1.035 pH, UA (test code = 5803-2) 6.0 5.0-8.0 Protein, UA (test code = 73333-4) 30 mg/dL Negative A Glucose, UA (test code = 365) Negative Negative Ketones, UA (test code = 2514-8) Negative Negative Bilirubin, UA (test code = 48369-0) Negative Negative Blood, UA (test code = 73885-0) Small Negative A Nitrite, UA (test code = 5802-4) Negative Negative Leukocytes, UA (test code = 5799-2) Negative Negative Urobilinogen, UA (test code = 94804-0) 0.2 0.2-1.0 RBC, UA (test code = 03248-2) 51 See_Comment [Automated message] The system which [...] Occasional Squam Epithel, UA (test code = 41643-6) See_Comment [Automated message] The system which generated this result transmitted reference range: /HPF. The reference range was not used to interpret this result as normal/abnormal. Specimen Source (test code = 2795) LYNDSAY (test code = LYNDSAY) Land Leveler ID - [auto]Land Leveler ID - tech Lab Interpretation (test code = 56253-6) [facility] 2023-[facility]-30 08:43:51* Test Item Value Reference Range Interpretation Comme nts Color, UA (test code = 5778-6) Yellow Clarity, UA (test code = 5767-9) Clear Specific [place], UA (test code = 5811-5) 1.033 1.001-1.035 pH, UA (test code = 5803-2) 6.0 5.0-8.0 Protein, UA (test code = 30436-2) 30 mg/dL Negative A Glucose, UA (test code = 365) Negative Negative Ketones, UA (test code = 2514-8) Negative Negative Bilirubin, UA (test code = 44737-2) Negative Negative Blood, UA (test code = 35947-6) Small Negative A Nitrite, UA (test code = 5802-4) Negative Negative Leukocytes, UA (test code = 5799-2) Negative Negative Urobilinogen, UA (test code = 81866-0) 0.2 0.2-1.0 RBC, UA (test code = 00248-5) 51 See_Comment [Automated message] The system which [...] Occasional Squam Epithel, UA (test code = 44811-6) See_Comment [Automated message] The system which generated this result transmitted reference range: /HPF. The reference range was not used to interpret this result as normal/abnormal. Specimen Source (test code = 2795) LYNDSAY (test code = LYNDSAY) Land Leveler ID - [auto]Land Leveler ID - tech Lab Interpretation (test code = 35043-2) [facility] 2023-[facility]-30 08:43:51* Test Item Value Reference Range Interpretation Comme nts Color, UA (test code = 5778-6) Yellow Clarity, UA (test code = 5767-9) Clear Specific [place], UA (test code = 5811-5) 1.033 1.001-1.035 pH, UA (test code = 5803-2) 6.0 5.0-8.0 Protein, UA (test code = 91795-1) 30 mg/dL Negative A Glucose, UA (test code = 365) Negative Negative Ketones, UA (test code = 2514-8) Negative Negative Bilirubin, UA (test code = 16552-6) Negative Negative Blood, UA (test code = 77412-1) Small Negative A Nitrite, UA (test code = 5802-4) Negative Negative Leukocytes, UA (test code = 5799-2) Negative Negative Urobilinogen, UA (test code = 80265-1) 0.2 0.2-1.0 RBC, UA (test code = 34708-6) 51 See_Comment [Automated message] The system which [...] Occasional Squam Epithel, UA (test code = 21071-9) See_Comment [Automated message] The system which generated this result transmitted reference range: /HPF. The reference range was not used to interpret this result as normal/abnormal. Specimen Source (test code = 2795) LYNDSAY (test code = LYNDSAY) Land Leveler ID - [auto]Land Leveler ID - tech Lab Interpretation (test code = 39266-6) [facility] Reflex [facility] Culture 2023-03-30 08:43:51* Test Item Value Reference Range Interpretation Comme nts Color, UA (test code = 5778-6) Yellow Clarity, UA (test code = 5767-9) Clear Specific [place], UA (test code = 5811-5) 1.033 1.001-1.035 pH, UA (test code = 5803-2) 6.0 5.0-8.0 Protein, UA (test code = 70377-7) 30 mg/dL Negative A Glucose, UA (test code = 365) Negative Negative Ketones, UA (test code = 2514-8) Negative Negative Bilirubin, UA (test code = 08066-4) Negative Negative Blood, UA (test code = 66124-9) Small Negative A Nitrite, UA (test code = 5802-4) Negative Negative Leukocytes, UA (test code = 5799-2) Negative Negative Urobilinogen, UA (test code = 43903-1) 0.2 0.2-1.0 RBC, UA (test code = 20501-7) 51 See_Comment [Automated message] The system which [...] Occasional Squam Epithel, UA (test code = 10473-1) See_Comment [Automated message] The system which generated this result transmitted reference range: /HPF. The reference range was not used to interpret this result as normal/abnormal. Specimen Source (test code = 2795) LYNDSAY (test code = LYNDSAY) Land Leveler ID - [auto]Land Leveler ID - tech Lab Interpretation (test code = 43446-3) [facility] Reflex to Culture 2023-03-30 08:43:51* Test Item Value Reference Range Interpretation Comme nts Color, UA (test code = 5778-6) Yellow Clarity, UA (test code = 5767-9) Clear Specific [place], UA (test code = 5811-5) 1.033 1.001-1.035 pH, UA (test code = 5803-2) 6.0 5.0-8.0 Protein, UA (test code = 09513-6) 30 mg/dL Negative A Glucose, UA (test code = 365) Negative Negative Ketones, UA (test code = 2514-8) Negative Negative Bilirubin, UA (test code = 59161-7) Negative Negative Blood, UA (test code = 56774-2) Small Negative A Nitrite, UA (test code = 5802-4) Negative Negative Leukocytes, UA (test code = 5799-2) Negative Negative Urobilinogen, UA (test code = 08196-6) 0.2 0.2-1.0 RBC, UA (test code = 88848-5) 51 See_Comment [Automated message] The system which [...] Occasional Squam Epithel, UA (test code = 95783-6) See_Comment [Automated message] The system which generated this result transmitted reference range: /HPF. The reference range was not used to interpret this result as normal/abnormal. Specimen Source (test code = 2795) LYNDSAY (test code = LYNDSAY) Land Leveler ID - [auto]Land Leveler ID - tech Lab Interpretation (test code = 08731-9) [facility]23[facility]30 08:43:51* Test Item Value Reference Range Interpretation Comme nts Color, UA (test code = 5778-6) Yellow Clarity, UA (test code = 5767-9) Clear Specific [place], UA (test code = 5811-5) 1.033 1.001-1.035 pH, UA (test code = 5803-2) 6.0 5.0-8.0 Protein, UA (test code = 45700-2) 30 mg/dL Negative A Glucose, UA (test code = 365) Negative Negative Ketones, UA (test code = 2514-8) Negative Negative Bilirubin, UA (test code = 42258-9) Negative Negative Blood, UA (test code = 95001-3) Small Negative A Nitrite, UA (test code = 5802-4) Negative Negative Leukocytes, UA (test code = 5799-2) Negative Negative Urobilinogen, UA (test code = 22545-5) 0.2 0.2-1.0 RBC, UA (test code = 63919-5) 51 See_Comment [Automated message] The system which [...] Occasional Squam Epithel, UA (test code = 20518-8) See_Comment [Automated message] The system which generated this result transmitted reference range: /HPF. The reference range was not used to interpret this result as normal/abnormal. Specimen Source (test code = 2795) LYNDSAY (test code = LYNDSAY) Land Leveler ID - [auto]Land Leveler ID - tech Lab Interpretation (test code = 24575-7) [facility] Reflex to Culture 2023-03-30 08:43:51* Test Item Value Reference Range Interpretation Comme nts Color, UA (test code = 5778-6) Yellow Clarity, UA (test code = 5767-9) Clear Specific [place], UA (test code = 5811-5) 1.033 1.001-1.035 pH, UA (test code = 5803-2) 6.0 5.0-8.0 Protein, UA (test code = 93105-7) 30 mg/dL Negative A Glucose, UA (test code = 365) Negative Negative Ketones, UA (test code = 2514-8) Negative Negative Bilirubin, UA (test code = 30338-3) Negative Negative Blood, UA (test code = 94890-3) Small Negative A Nitrite, UA (test code = 5802-4) Negative Negative Leukocytes, UA (test code = 5799-2) Negative Negative Urobilinogen, UA (test code = 67390-5) 0.2 0.2-1.0 RBC, UA (test code = 11271-2) 51 See_Comment [Automated message] The system which [...] Occasional Squam Epithel, UA (test code = 83152-6) See_Comment [Automated message] The system which generated this result transmitted reference range: /HPF. The reference range was not used to interpret this result as normal/abnormal. Specimen Source (test code = 2795) LYNDSAY (test code = LYNDSAY) Land Leveler ID - [auto]Land Leveler ID - tech Lab Interpretation (test code = 18178-4) [facility] Reflex to Culture 2023-03-30 08:43:51* Test Item Value Reference Range Interpretation Comme nts Color, UA (test code = 5778-6) Yellow Clarity, UA (test code = 5767-9) Clear Specific [place], UA (test code = 5811-5) 1.033 1.001-1.035 pH, UA (test code = 5803-2) 6.0 5.0-8.0 Protein, UA (test code = 53752-9) 30 mg/dL Negative A Glucose, UA (test code = 365) Negative Negative Ketones, UA (test code = 2514-8) Negative Negative Bilirubin, UA (test code = 07989-4) Negative Negative Blood, UA (test code = 72830-2) Small Negative A Nitrite, UA (test code = 5802-4) Negative Negative Leukocytes, UA (test code = 5799-2) Negative Negative Urobilinogen, UA (test code = 65712-8) 0.2 0.2-1.0 RBC, UA (test code = 99963-6) 51 See_Comment [Automated message] The system which [...] Occasional Squam Epithel, UA (test code = 01248-5) See_Comment [Automated message] The system which generated this result transmitted reference range: /HPF. The reference range was not used to interpret this result as normal/abnormal. Specimen Source (test code = 2795) LYNDSAY (test code = LYNDSAY) Land Leveler ID - [auto]Land Leveler ID - tech Lab Interpretation (test code = 05105-2) [facility] 2023-03-30 08:43:51* Test Item Value Reference Range Interpretation Comme nts Color, UA (test code = 5778-6) Yellow Clarity, UA (test code = 5767-9) Clear Specific [place], UA (test code = 5811-5) 1.033 1.001-1.035 pH, UA (test code = 5803-2) 6.0 5.0-8.0 Protein, UA (test code = 59976-0) 30 mg/dL Negative A Glucose, UA (test code = 365) Negative Negative Ketones, UA (test code = 2514-8) Negative Negative Bilirubin, UA (test code = 20843-5) Negative Negative Blood, UA (test code = 54180-5) Small Negative A Nitrite, UA (test code = 5802-4) Negative Negative Leukocytes, UA (test code = 5799-2) Negative Negative Urobilinogen, UA (test code = 23026-6) 0.2 0.2-1.0 RBC, UA (test code = 63610-0) 51 See_Comment [Automated message] The system which [...] Occasional Squam Epithel, UA (test code = 67394-6) See_Comment [Automated message] The system which generated this result transmitted reference range: /HPF. The reference range was not used to interpret this result as normal/abnormal. Specimen Source (test code = 2795) LYNDSAY (test code = LYNDSAY) Land Leveler ID - [auto]Land Leveler ID - [place] Interpretation (test code = 70935-0) [facility] 2023-03-30 08:43:51* Test Item Value Reference Range Interpretation Comme nts Color, UA (test code = 5778-6) Yellow Clarity, UA (test code = 5767-9) Clear Specific [place], UA (test code = 5811-5) 1.033 1.001-1.035 pH, UA (test code = 5803-2) 6.0 5.0-8.0 Protein, UA (test code = 31108-4) 30 mg/dL Negative A Glucose, UA (test code = 365) Negative Negative Ketones, UA (test code = 2514-8) Negative Negative Bilirubin, UA (test code = 24424-4) Negative Negative Blood, UA (test code = 02107-8) Small Negative A Nitrite, UA (test code = 5802-4) Negative Negative Leukocytes, UA (test code = 5799-2) Negative Negative Urobilinogen, UA (test code = 82394-5) 0.2 0.2-1.0 RBC, UA (test code = 66776-9) 51 See_Comment [Automated message] The system which [...] Occasional Squam Epithel, UA (test code = 35852-0) See_Comment [Automated message] The system which generated this result transmitted reference range: /HPF. The reference range was not used to interpret this result as normal/abnormal. Specimen Source (test code = 2795) LYNDSAY (test code = LYNDSAY) Land Leveler ID - [auto]Land Leveler ID - tech Lab Interpretation (test code = 97160-6) [facility] 2023-03-30 08:43:51* Test Item Value Reference Range Interpretation Comme nts Color, UA (test code = 5778-6) Yellow Clarity, UA (test code = 5767-9) Clear Specific [place], UA (test code = 5811-5) 1.033 1.001-1.035 pH, UA (test code = 5803-2) 6.0 5.0-8.0 Protein, UA (test code = 03194-9) 30 mg/dL Negative A Glucose, UA (test code = 365) Negative Negative Ketones, UA (test code = 2514-8) Negative Negative Bilirubin, UA (test code = 61143-5) Negative Negative Blood, UA (test code = 43339-7) Small Negative A Nitrite, UA (test code = 5802-4) Negative Negative Leukocytes, UA (test code = 5799-2) Negative Negative Urobilinogen, UA (test code = 61393-7) 0.2 0.2-1.0 RBC, UA (test code = 98834-4) 51 See_Comment [Automated message] The system which [...] Occasional Squam Epithel, UA (test code = 61532-8) See_Comment [Automated message] The system which generated this result transmitted reference range: /HPF. The reference range was not used to interpret this result as normal/abnormal. Specimen Source (test code = 2795) LYNDSAY (test code = LYNDSAY) Land Leveler ID - [auto]Land Leveler ID - tech Lab Interpretation (test code = 45983-5) [facility] 2023-03-30 08:43:51* Test Item Value Reference Range Interpretation Comme nts Color, UA (test code = 5778-6) Yellow Clarity, UA (test code = 5767-9) Clear Specific [place], UA (test code = 5811-5) 1.033 1.001-1.035 pH, UA (test code = 5803-2) 6.0 5.0-8.0 Protein, UA (test code = 67517-8) 30 mg/dL Negative A Glucose, UA (test code = 365) Negative Negative Ketones, UA (test code = 2514-8) Negative Negative Bilirubin, UA (test code = 96200-5) Negative Negative Blood, UA (test code = 62078-2) Small Negative A Nitrite, UA (test code = 5802-4) Negative Negative Leukocytes, UA (test code = 5799-2) Negative Negative Urobilinogen, UA (test code = 10965-1) 0.2 0.2-1.0 RBC, UA (test code = 21688-6) 51 See_Comment [Automated message] The system which [...] Occasional Squam Epithel, UA (test code = 67929-1) See_Comment [Automated message] The system which generated this result transmitted reference range: /HPF. The reference range was not used to interpret this result as normal/abnormal. Specimen Source (test code = 2795) LYNDSAY (test code = LYNDSAY) Land Leveler ID - [auto]Land Leveler ID - tech Lab Interpretation (test code = 98022-3) [facility] Reflex [facility] Culture 2023-03-30 08:43:51* Test Item Value Reference Range Interpretation Comme nts Color, UA (test code = 5778-6) Yellow Clarity, UA (test code = 5767-9) Clear Specific [place], UA (test code = 5811-5) 1.033 1.001-1.035 pH, UA (test code = 5803-2) 6.0 5.0-8.0 Protein, UA (test code = 91612-8) 30 mg/dL Negative A Glucose, UA (test code = 365) Negative Negative Ketones, UA (test code = 2514-8) Negative Negative Bilirubin, UA (test code = 64292-1) Negative Negative Blood, UA (test code = 94899-7) Small Negative A Nitrite, UA (test code = 5802-4) Negative Negative Leukocytes, UA (test code = 5799-2) Negative Negative Urobilinogen, UA (test code = 37575-4) 0.2 0.2-1.0 RBC, UA (test code = 88943-7) 51 See_Comment [Automated message] The system which [...] Occasional Squam Epithel, UA (test code = 24039-1) See_Comment [Automated message] The system which generated this result transmitted reference range: /HPF. The reference range was not used to interpret this result as normal/abnormal. Specimen Source (test code = 2795) LYNDSAY (test code = LYNDSAY) Land Leveler ID - [auto]Land Leveler ID - tech Lab Interpretation (test code = 00786-0) [facility] Reflex to Culture 2023-03-30 08:43:51* Test Item Value Reference Range Interpretation Comme nts Color, UA (test code = 5778-6) Yellow Clarity, UA (test code = 5767-9) Clear Specific [place], UA (test code = 5811-5) 1.033 1.001-1.035 pH, UA (test code = 5803-2) 6.0 5.0-8.0 Protein, UA (test code = 54992-8) 30 mg/dL Negative A Glucose, UA (test code = 365) Negative Negative Ketones, UA (test code = 2514-8) Negative Negative Bilirubin, UA (test code = 36423-1) Negative Negative Blood, UA (test code = 60828-6) Small Negative A Nitrite, UA (test code = 5802-4) Negative Negative Leukocytes, UA (test code = 5799-2) Negative Negative Urobilinogen, UA (test code = 65286-1) 0.2 0.2-1.0 RBC, UA (test code = 59322-2) 51 See_Comment [Automated message] The system which [...] Occasional Squam Epithel, UA (test code = 80338-4) See_Comment [Automated message] The system which generated this result transmitted reference range: /HPF. The reference range was not used to interpret this result as normal/abnormal. Specimen Source (test code = 2795) LYNDSAY (test code = LYNDSAY) Land Leveler ID - [auto]Land Leveler ID - tech Lab Interpretation (test code = 14661-2) [facility] Reflex to Culture 2023-03-30 08:43:51* Test Item Value Reference Range Interpretation Comme nts Color, UA (test code = 5778-6) Yellow Clarity, UA (test code = 5767-9) Clear Specific [place], UA (test code = 5811-5) 1.033 1.001-1.035 pH, UA (test code = 5803-2) 6.0 5.0-8.0 Protein, UA (test code = 93838-9) 30 mg/dL Negative A Glucose, UA (test code = 365) Negative Negative Ketones, UA (test code = 2514-8) Negative Negative Bilirubin, UA (test code = 65677-1) Negative Negative Blood, UA (test code = 51049-5) Small Negative A Nitrite, UA (test code = 5802-4) Negative Negative Leukocytes, UA (test code = 5799-2) Negative Negative Urobilinogen, UA (test code = 06931-1) 0.2 0.2-1.0 RBC, UA (test code = 46742-2) 51 See_Comment [Automated message] The system which [...] Occasional Squam Epithel, UA (test code = 86020-9) See_Comment [Automated message] The system which generated this result transmitted reference range: /HPF. The reference range was not used to interpret this result as normal/abnormal. Specimen Source (test code = 2795) LYNDSAY (test code = LYNDSAY) Land Leveler ID - [auto]Land Leveler ID - tech Lab Interpretation (test code = 84907-7) [facility] 2023-03-30 08:43:51* Test Item Value Reference Range Interpretation Comme nts Color, UA (test code = 5778-6) Yellow Clarity, UA (test code = 5767-9) Clear Specific [place], UA (test code = 5811-5) 1.033 1.001-1.035 pH, UA (test code = 5803-2) 6.0 5.0-8.0 Protein, UA (test code = 20953-9) 30 mg/dL Negative A Glucose, UA (test code = 365) Negative Negative Ketones, UA (test code = 2514-8) Negative Negative Bilirubin, UA (test code = 47901-3) Negative Negative Blood, UA (test code = 00340-4) Small Negative A Nitrite, UA (test code = 5802-4) Negative Negative Leukocytes, UA (test code = 5799-2) Negative Negative Urobilinogen, UA (test code = 99534-6) 0.2 0.2-1.0 RBC, UA (test code = 07380-6) 51 See_Comment [Automated message] The system which [...] Occasional Squam Epithel, UA (test code = 96717-2) See_Comment [Automated message] The system which generated this result transmitted reference range: /HPF. The reference range was not used to interpret this result as normal/abnormal. Specimen Source (test code = 2795) LYNDSAY (test code = LYNDSAY) Land Leveler ID - [auto]Land Leveler ID - tech Lab Interpretation (test code = 80179-9) [facility] 2023-03-30 08:43:51* Test Item Value Reference Range Interpretation Comme nts Color, UA (test code = 5778-6) Yellow Clarity, UA (test code = 5767-9) Clear Specific [place], UA (test code = 5811-5) 1.033 1.001-1.035 pH, UA (test code = 5803-2) 6.0 5.0-8.0 Protein, UA (test code = 34941-3) 30 mg/dL Negative A Glucose, UA (test code = 365) Negative Negative Ketones, UA (test code = 2514-8) Negative Negative Bilirubin, UA (test code = 53207-2) Negative Negative Blood, UA (test code = 59158-1) Small Negative A Nitrite, UA (test code = 5802-4) Negative Negative Leukocytes, UA (test code = 5799-2) Negative Negative Urobilinogen, UA (test code = 54103-4) 0.2 0.2-1.0 RBC, UA (test code = 04619-7) 51 See_Comment [Automated message] The system which [...] Occasional Squam Epithel, UA (test code = 00438-4) See_Comment [Automated message] The system which generated this result transmitted reference range: /HPF. The reference range was not used to interpret this result as normal/abnormal. Specimen Source (test code = 2795) LYNDSAY (test code = LYNDSAY) Land Leveler ID - [auto]Land Leveler ID - tech Lab Interpretation (test code = 93695-4) [facility]normal [facility] Reflex [facility] Culture 2023-03-30 08:43:51* Test Item Value Reference Range Interpretation Comme nts Color, UA (test code = 5778-6) Yellow Clarity, UA (test code = 5767-9) Clear Specific [place], UA (test code = 5811-5) 1.033 1.001-1.035 pH, UA (test code = 5803-2) 6.0 5.0-8.0 Protein, UA (test code = 89292-6) 30 mg/dL Negative A Glucose, UA (test code = 365) Negative Negative Ketones, UA (test code = 2514-8) Negative Negative Bilirubin, UA (test code = 81854-9) Negative Negative Blood, UA (test code = 23256-0) Small Negative A Nitrite, UA (test code = 5802-4) Negative Negative Leukocytes, UA (test code = 5799-2) Negative Negative Urobilinogen, UA (test code = 12043-1) 0.2 0.2-1.0 RBC, UA (test code = [...] Occasional Squam Epithel, UA (test code = 59922-0) See_Comment [Automated message] The system which generated this result transmitted reference range: /HPF. The reference range was not used to interpret this result as normal/abnormal. Specimen Source (test code = 2795) LYNDSAY (test code = LYNDSAY) Land Leveler ID - [auto]Land Leveler ID - tech Lab Interpretation (test code = 28729-3) [facility]normal [facility] + Reflex to Culture 2023-03-30 08:43:51* Test Item Value Reference Range Interpretation Comme nts Color, UA (test code = 5778-6) Yellow Clarity, UA (test code = 5767-9) Clear Specific [place], UA (test code = 5811-5) 1.033 1.001-1.035 pH, UA (test code = 5803-2) 6.0 5.0-8.0 Protein, UA (test code = 66966-4) 30 mg/dL Negative A Glucose, UA (test code = 365) Negative Negative Ketones, UA (test code = 2514-8) Negative Negative Bilirubin, UA (test code = 96052-8) Negative Negative Blood, UA (test code = 32015-7) Small Negative A Nitrite, UA (test code = 5802-4) Negative Negative Leukocytes, UA (test code = 5799-2) Negative Negative Urobilinogen, UA (test code = 89467-0) 0.2 0.2-1.0 RBC, UA (test code = 72793-3) 51 See_Comment [Automated message] The system which [...] Occasional Squam Epithel, UA (test code = 58339-5) See_Comment [Automated message] The system which generated this result transmitted reference range: /HPF. The reference range was not used to interpret this result as normal/abnormal. Specimen Source (test code = 2795) LYNDSAY (test code = LYNDSAY) Land Leveler ID - [auto]Land Leveler ID - tech Lab Interpretation (test code = 39119-8) [facility]normal [facility] Reflex to Culture 2023-03-30 08:43:51* Test Item Value Reference Range Interpretation Comme nts Color, UA (test code = 5778-6) Yellow Clarity, UA (test code = 5767-9) Clear Specific [place], UA (test code = 5811-5) 1.033 1.001-1.035 pH, UA (test code = 5803-2) 6.0 5.0-8.0 Protein, UA (test code = 17209-8) 30 mg/dL Negative A Glucose, UA (test code = 365) Negative Negative Ketones, UA (test code = 2514-8) Negative Negative Bilirubin, UA (test code = 67780-6) Negative Negative Blood, UA (test code = 81809-0) Small Negative A Nitrite, UA (test code = 5802-4) Negative Negative Leukocytes, UA (test code = 5799-2) Negative Negative Urobilinogen, UA (test code = 01196-8) 0.2 0.2-1.0 RBC, UA (test code = 29166-7) 51 See_Comment [Automated message] The system which [...] Occasional Squam Epithel, UA (test code = 72303-8) See_Comment [Automated message] The system which generated this result transmitted reference range: /HPF. The reference range was not used to interpret this result as normal/abnormal. Specimen Source (test code = 2795) LYNDSAY (test code = LYNDSAY) Land Leveler ID - [auto]Land Leveler ID - tech Lab Interpretation (test code = 11371-8) [facility]normal [facility] Reflex to Culture 2023-03-30 08:43:51* Test Item Value Reference Range Interpretation Comme nts Color, UA (test code = 5778-6) Yellow Clarity, UA (test code = 5767-9) Clear Specific [place], UA (test code = 5811-5) 1.033 1.001-1.035 pH, UA (test code = 5803-2) 6.0 5.0-8.0 Protein, UA (test code = 64220-6) 30 mg/dL Negative A Glucose, UA (test code = 365) Negative Negative Ketones, UA (test code = 2514-8) Negative Negative Bilirubin, UA (test code = 72188-1) Negative Negative Blood, UA (test code = 27720-7) Small Negative A Nitrite, UA (test code = 5802-4) Negative Negative Leukocytes, UA (test code = 5799-2) Negative Negative Urobilinogen, UA (test code = 02016-6) 0.2 0.2-1.0 RBC, UA (test code = 44321-5) 51 See_Comment [Automated message] The system which [...] Occasional Squam Epithel, UA (test code = 36882-0) See_Comment [Automated message] The system which generated this result transmitted reference range: /HPF. The reference range was not used to interpret this result as normal/abnormal. Specimen Source (test code = 2795) LYNDSAY (test code = LYNDSAY) Land Leveler ID - [auto]Land Leveler ID - tech Lab Interpretation (test code = 74205-4) [facility] 2023-03-30 08:43:51* Test Item Value Reference Range Interpretation Comme nts Color, UA (test code = 5778-6) Yellow Clarity, UA (test code = 5767-9) Clear Specific [place], UA (test code = 5811-5) 1.033 1.001-1.035 pH, UA (test code = 5803-2) 6.0 5.0-8.0 Protein, UA (test code = 21463-3) 30 mg/dL Negative A Glucose, UA (test code = 365) Negative Negative Ketones, UA (test code = 2514-8) Negative Negative Bilirubin, UA (test code = 81630-5) Negative Negative Blood, UA (test code = 80486-4) Small Negative A Nitrite, UA (test code = 5802-4) Negative Negative Leukocytes, UA (test code = 5799-2) Negative Negative Urobilinogen, UA (test code = 80477-2) 0.2 0.2-1.0 RBC, UA (test code = 89594-1) 51 See_Comment [Automated message] The system which [...] Occasional Squam Epithel, UA (test code = 81481-8) See_Comment [Automated message] The system which generated this result transmitted reference range: /HPF. The reference range was not used to interpret this result as normal/abnormal. Specimen Source (test code = 2795) LYNDSAY (test code = LYNDSAY) Land Leveler ID - [auto]Land Leveler ID - tech Lab Interpretation (test code = 57049-0) [facility] 2023-03-30 08:43:51* Test Item Value Reference Range Interpretation Comme nts Color, UA (test code = 5778-6) Yellow Clarity, UA (test code = 5767-9) Clear Specific [place], UA (test code = 5811-5) 1.033 1.001-1.035 pH, UA (test code = 5803-2) 6.0 5.0-8.0 Protein, UA (test code = 14548-4) 30 mg/dL Negative A Glucose, UA (test code = 365) Negative Negative Ketones, UA (test code = 2514-8) Negative Negative Bilirubin, UA (test code = 12561-7) Negative Negative Blood, UA (test code = 24611-4) Small Negative A Nitrite, UA (test code = 5802-4) Negative Negative Leukocytes, UA (test code = 5799-2) Negative Negative Urobilinogen, UA (test code = 35446-2) 0.2 0.2-1.0 RBC, UA (test code = 43705-3) 51 See_Comment [Automated message] The system which [...] Occasional Squam Epithel, UA (test code = 22966-2) See_Comment [Automated message] The system which generated this result transmitted reference range: /HPF. The reference range was not used to interpret this result as normal/abnormal. Specimen Source (test code = 2795) LYNDSAY (test code = LYNDSAY) Land Leveler ID - [auto]Land Leveler ID - tech Lab Interpretation (test code = 86917-2) [facility] [id number] 08:43:51 * Test Item Value Reference Range [...] < /HPF SOURCE(BEAKER) (test code = 2795) Land Leveler ID - [auto]Land Leveler ID - techCOMPREHENSIVE METABOLIC [id number] 04:37:29* Test Item Value Reference Range Interpretation [...] GFR is not applicable for dialysis patients Land Leveler ID - MATT BPT/[id number] 04:30:17* Test Item Value Reference Range Interpretation Comme nts PROTIME (BEAKER) (test code = 759) 13.8 seconds 11.9-14.2 INR (BEAKER) (test code = 370) 1.13 See_Comment [Automated [employer]] The system which generated this result transmitted [...] code = 413) 0 /100 WBC 0-0 [id number]-[id number] 00:00:00Ordered by an unspecified provider.[facility]YCBNL7995-12-55 00:00:00Ordered by an unspecified provider. [facility]AALSIMI3825-02-01 00:00:00Ordered by an unspecified provider.[facility]UM2023-[facility] 17:14:06* Test Item Value Reference Range Interpretation Comme nts MAGNESIUM (test code = 3382120781) 1.9 mg/dL 1.7-2.4 Lab Interpretation (test cod e = 39989-7) [facility] (52738)2022-12-11 15:16:25* Test Item Value Reference Range Interpretation Comme nts NA (test code = 4975686606) 139 mmol/L 135-145 K (test code = 0902595533) 3.5 mmol/L 3.5-5.0 CL (test code = 1203569863) 107 mmol/L 98-108 CO2 TOTAL (test code = 1580721317) 24 mmol/L 23-31 AGAP (test code = 0928799277) 8 2-16 BUN (test code = 9806394884) 9 mg/dL 7-23 GLUCOSE (test code = 7742699401) 129 mg/dL 70-110 H CREATININE (test code = 1056226203) 0.68 mg/dL 0.50-1.04 TOTAL BILI (test code = 4842252114) 0.5 mg/dL 0.1-1.1 CALCIUM (test code = 2503601185) 8.9 mg/dL 8.6-10.6 T PROTEIN (test code = 3480328849) 6.3 g/dL 6.3-8.2 ALBUMIN (test code = 0807410407) 3.8 g/dL 3.5-5.0 ALK PHOS (test code = 6809854028) 87 U/L 34-122 ALTv (test code = 1742-6) 24 U/L 5-35 AST(SGOT) (test code = 6126484824) 21 U/L 13-40 eGFR (test code = 3327103146) 91.6 mL/min/1.73m2 LYNDSAY (test code = LYNDSAY) [...] imaging tests). Lab Interpretation (test code = 45213-6) [facility]normal [facility] CenterTROP[facility]IN [id number] 15:10:45* Test Item Value Reference Range Interpretation Comme nts TROPONIN I (test code = 9795690917) 0.015 ng/mL <=0.034 LYNDSAY (test code = [...] of biotin. Lab Interpretation (test code = 08126-6) Normal [facility] CenterN-TERMINAL GMG-[id number] 15:07:48* Test Item Value Reference Range Interpretation Comme nts NT-proBNP (test code = 0031919113) 1460 pg/mL <=125 H LYNDSAY (test code = LYNDSAY) Biotin has been reported to cause a negative bias, interpret results relative to patient's use of biotin. Lab Interpretation (test code = 54904-8) [facility]normal [facility] CenterD-QWMZP2606-85-69 14:45:24* Test Item Value Reference Range Interpretation Comments D-DIMER (test code = 1058228371) 0.99 See_Comment H [Automated message] The system [...] a diagnosis. Lab Interpretation (test code = 92542-4) Abnormal [facility] WITH [id number] 14:14:48* Test Item Value Reference Range Interpretation Comme nts WBC (test code = 6690-2) 7.86 See_Comment [Automated [employer]] The system which generated this result transmitted reference range: 4.30 - 11.10 10*3/?L. The reference range was not used to interpret this result as normal/abnormal. RBC (test code = 789-8) 5.13 See_Comment [Automated [employer]] The system which generated this result transmitted [...] g/dL 31.6-35.1 L RDW-SD (test code = 51571-2) 47.8 fL 39.0-49.9 RDW-CV (test code = 788-0) 16.9 % 12.0-15.5 H PLT (test code = 777-3) 507 See_Comment H [Automated [employer]] The system which generated this result transmitted reference range: 166 - 358 10*3/?L. The reference range was not used to interpret this result as normal/abnormal. MPV (test code = 15316-0) 8.2 fL 9.5-12.9 L NRBC/100 WBC (test code = 1837502420) 0.0 See_Comment [Automated me ssage] The system which generated this result transmitted reference range: 0.0 - 10.0 /100 WBCs. The reference range was not used to interpret this result as normal/abnormal. NRBC x10^3 (test code = 6595354538) See_Comment [Automated messa ge] The system which generated this result transmitted reference range: 10*3/?L. The reference range was not used to interpret this result as normal/abnormal. GRAN MAT (NEUT) % (test code = 770-8) 64.5 % IMM GRAN % (test code = 5651980193) 0.30 % LYMPH % (test code = 736-9) 25.6 % MONO % (test code = 5905-5) 7.5 % EOS % (test code = 713-8) 1.0 % BASO % (test code = 706-2) 1.1 % GRAN MAT x10^3(ANC) (test code = 7283265683) 5.07 10*3/uL 1.88-7.09 IMM GRAN x10^3 (test code = 6585823390) 0.00-0.06 LYMPH x10^3 (test code = 731-0) 2.01 10*3/uL 1.32-3.29 MONO x10^3 (test code = 742-7) 0.59 10*3/uL 0.33-0.92 EOS x10^3 (test code = 711-2) 0.08 10*3/uL 0.03-0.39 BASO x10^3 (test code = 704-7) 0.09 10*3/uL 0.01-0.07 H Lab Interpretation (test code = 29421-7) [facility]normal [facility] CenterRPR[facility] 13:17:22* Test Item Value Reference Range Interpretation Comme nts RPR SCREEN (CollaxAKER) (test co de = 420) Nonreactive Nonreactive HEMOGLOBIN [id number] 10:39:49* Test Item Value Reference Range Interpretation Comme nts HEMOGLOBIN A1C ELECTROPHORESIS (BEAKER) (test code = 3811) 5.8 % See_Comment H [Automated me ssage] The system which generated this result transmitted reference range: <=5.6%. The reference range was not used to interpret this result as normal/abnormal. "The A1c is measured using a [facility]-certified method. HbA1c value equal to or greater than 6.5% as the diagnosis cutoff for diabetes. An HbA1c value of 5.7- 6.4% indicates increased risk for diabetes (prediabetes)."[employer] ID - ADM VITAMIN [id number] 22:48:27* Test Item Value Reference Range Interpretation Comme nts VITAMIN B12 (BEAKER) (test c ode = 774) 227 pg/mL 213-816 [employer] ID - MARCOTSH/FREE T4 IF [id number] 22:08:28* Test Item Value Reference Range Interpretation Comme nts THYROID STIMULATING HORMONE (BEAKER) (test code = 772) 3.309 uIU/mL 0.350-4.940 [employer] ID - JSHIV-1 ANTIGEN WITH HIV-1/2 [id number] 22:08:28* Test Item Value Reference Range Interpretation Comme nts HIV-1 ANTIGEN WITH HIV 1\\T\\2 ANTIBODY (2) (BEAKER) (test code = 2586) Nonreactive Nonreactive [employer] ID - JSC-REACTIVE [id number] 21:49:44* Test Item Value Reference Range Interpretation Comme nts C-REACTIVE PROTEIN (BEAKER) (test code = 676) 0.35 mg/dL 0.00-0.50 [employer] ID - JSCOMPREHENSIVE METABOLIC [id number] 21:49:43* Test Item Value Reference Range Interpretation [...] GFR is not applicable for dialysis patients [employer] ID - JSLIPID [id number] 21:49:43* Test Item Value Reference Range Interpretation [...] Borderline 130-159 High 160-189 Very High >=190 Land Leveler ID - JSCBC W/PLT COUNT & AUTO [id number] 21:34:03* Test Item Value Reference Range Interpretation [...] Interpretation Comme nts Height (test code = 0640458978) in Weight (test code = 3203109661) lbs Systolic BP (test code = 3877969440) mmHg Diastolic BP (test code = 9291612945) mmHg Heart Rate (test code = 7568554659) bpm BSA (test code = 2127288782) 2.00 m2 Ao root diam (test code = 4842028006) 3.20 cm Aortic root (test code = 6277649461) 3.2 cm Ao root annulus (test code = 8073251614) 3.2 cm LVOT diameter (test code = 0005278857) 1.99 cm LVOT area (test code = 4547440571) 3.10 cm2 LVIDD (test code = 3885675456) 5.10 cm Left Ventricular End Diastolic Volume by Teichholz Method (test code = 0067523) 123.0 mL IVS (test code = 9178629874) 1.34 cm Interventricular Septum Diastolic Thickness by 2D (test code = 8795789) 1.34 cm LVPWD (test code = 0338849529) 1.34 cm PW (test code = 0594429794) 1.34 cm 0.6-1.1 EF(Teich) (test code = 9118980800) 41.80 % LVIDS (test code = 6427262534) 4.00 cm Left Ventricular End Systolic Volume by Teichholz Method (test code = 3988126) 71.5 mL FS (test code = 1220930699) 21 % EF - 2D (test code = 47065495) 41.80 % LA size (test code = 8057403612) 4.6 cm Pulmonic Regurgitant End Max Velocity (test code = 7230060655) 119.4 cm/s LAV(MOD-sp4) (test code = 5402052461) 95.00 mL E wave decelartion time (test code = 4226864033) 0.15 s MV stenosis pressure 1/2 time (test code = 2282033554) 45.6 ms MV Peak A Evette (test code = 3808885116) 123.8 cm/s MV Peak E Evette (test code = 2067326877) 109.7 cm/s E/A ratio (test code = 4959390946) ratio MR max PG (test code = 2805706531) 87.20 mm[Hg] MR max evette (test code = 1176376503) 466.90 cm/s Mr max evette (test code = 2736080817) 466.9 m/s MV Prop V (test code = 3328894628) 51.00 cm/s MV E/e' septal (test code = 5995650212) 8.1 cm/s Tapse (test code = 9188517230) 2.21 cm LVOT stroke volume (test code = 4633889672) 49.80 cm3 LVOT peak evette (test code = 8931066182) 89.1 cm/s LVOT mn grad (test code = 2627134506) mmHg AV LVOT peak gradient (test code = 6940414014) mmHg LVOT peak VTI (test code = 0939843391) 16.0 cm LV V1 mean (test code = 0133706638) 64.30 cm/s Aortic valve mean velocity (test code = 7412001273) 133.8 cm/s Ao peak evette (test code = 8492924672) 175.3 cm/s Ao VTI (test code = 1869168577) 32.2 cm AV area by cont VTI (test code = 5373252898) 1.6 cm2 AV area peak evette (test code = 2861292985) 1.6 cm2 Ao max PG (test code = 8729903049) 12.30 mm[Hg] AV peak gradient (test code = 0598010686) mmHg AV valve area (test code = 3184323465) 1.55 cm2 AV mean gradient (test code = 5708275054) mmHg AV regurgitation pressure 1/2 time (test code = 0663718875) 358.5 ms AI dec slope (test code = 3821346663) 364.20 cm/s2 AI max evette (test code = 2767137287) 445.80 cm/s AI max PG (test code = 0662777979) 79.50 mm[Hg] Radiology Study observation (narrative) (test code = 00394-5) LYNDSAY (test code = LYNDSAY) ?Left?Ventricle: Left [...] mL of Lumason ultrasound enhancing agent used. [facility] 10:43:32* Test Item Value Reference Range Interpretation Comme [facility] POCT GLU (test code = 4562587193) 148 mg/dL 70-110 H Lab Interpretation (test cod e = 98648-4) Abnormal [facility] CenterACTIVATED PARTIAL THRMPLAS [id number] 18:39:45* Test Item Value Reference Range Interpretation Comme [facility] APTT Patient (test code = 3173-2) See_Comment [Automated message] The system which generated this result transmitted reference range: 23 - 38 Seconds. The reference range was not used to interpret this result as normal/abnormal. LYNDSAY (test code = LYNDSAY) The [facility] patient population mean normal value for aPTT is 30 seconds. Lab Interpretation (test code = 36037-6) Normal [facility] CenterPROT[facility]OMBIN TIME / [id number] 18:37:42* Test Item Value Reference Range Interpretation [...] the indications. Lab Interpretation (test code = 80243-7) Normal [facility] CenterTROPONIN [id number] 18:32:01* Test Item Value Reference Range Interpretation Comments TROPONIN I (test code = 9713682826) 0.019 ng/mL See_Comment [Automated message] The system [...] of biotin. Lab Interpretation (test code = 58204-2) Normal [facility] CenterN-TERMINAL [id number] 18:29:01* Test Item Value Reference Range Interpretation Comme [facility] NT-proBNP (test code = 8737756117) 2770 pg/mL See_Comment H [Automated message] The system which generated this result transmitted reference range: <=125. The reference range was not used to interpret this result as normal/abnormal. LYNDSAY (test code = LYNDSAY) Biotin has been reported to cause a negative bias, interpret results relative to patient's use of biotin. Lab Interpretation (test code = 45379-4) [facility]normal [facility] CenterCOM. MET[facility]OLIC PANEL (48494)2022-07-31 18:21:42* Test Item Value Reference Range Interpretation Comme nts NA (test code = 3647706969) 136 mmol/L 135-145 K (test code = 0844081388) 4.6 mmol/L 3.5-5.0 CL (test code = 0395093488) 104 mmol/L 98-108 CO2 TOTAL (test code = 8683084950) 26 mmol/L 23-31 AGAP (test code = 0602968619) 2-16 BUN (test code = 5531553898) 9 mg/dL 7-23 GLUCOSE (test code = 5780092610) 97 mg/dL 70-110 CREATININE (test code = 7100832356) 0.64 mg/dL 0.50-1.04 TOTAL BILI (test code = 3904487605) 0.5 mg/dL 0.1-1.1 CALCIUM (test code = 9363709646) 8.2 mg/dL 8.6-10.6 L T PROTEIN (test code = 6174069477) 6.5 g/dL 6.3-8.2 ALBUMIN (test code = 1485608050) 3.9 g/dL 3.5-5.0 ALK PHOS (test code = 7797549321) 93 U/L 34-122 ALTv (test code = 1742-6) 18 U/L 5-35 AST(SGOT) (test code = 3666377694) 19 U/L 13-40 eGFR (test code = 5798067183) mL/min/1.73m2 LYNDSAY (test code = LYNDSAY) Association [...] imaging tests). Lab Interpretation (test code = 88920-7) Abnormal [facility] CenterLIPASE2023-01-[facility] 18:21:01* Test Item Value Reference Range Interpretation Comme nts LIPASE (test code = 1579508615) 54 U/L 0-220 Lab Interpretation (test cod e = 43749-6) Normal [facility] WITH [id number] 18:07:00* Test Item Value Reference Range Interpretation Comme nts WBC (test code = 6690-2) See_Comment [Automated [employer]] The system which generated this result transmitted reference range: 4.30 - 11.10 10*3/?L. The reference range was not used to interpret this result as normal/abnormal. RBC (test code = 789-8) See_Comment [Automated [employer]] The system which generated this result transmitted [...] g/dL 31.6-35.1 L RDW-SD (test code = 32873-8) 53.1 fL 39.0-49.9 H RDW-CV (test code = 788-0) 17.0 % 12.0-15.5 H PLT (test code = 777-3) See_Comment H [Automated messa ge] The system which generated this result transmitted reference range: 166 - 358 10*3/?L. The reference range was not used to interpret this result as normal/abnormal. MPV (test code = 06857-7) 8.2 fL 9.5-12.9 L NRBC/100 WBC (test code = 8996298409) See_Comment [Automated [employer] ssage] The system which generated this result transmitted reference range: 0.0 - 10.0 /100 WBCs. The reference range was not used to interpret this result as normal/abnormal. NRBC x10^3 (test code = 2129528660) See_Comment [Automated [employer] ge] The system which generated this result transmitted reference range: 10*3/?L. The reference range was not used to interpret this result as normal/abnormal. GRAN MAT (NEUT) % (test code = 770-8) 64.0 % IMM GRAN % (test code = 4127986249) 0.40 % LYMPH % (test code = 736-9) 27.3 % MONO % (test code = 5905-5) 6.5 % EOS % (test code = 713-8) 1.1 % BASO % (test code = 706-2) 0.7 % GRAN MAT x10^3(ANC) (test code = 4484206949) 5.46 10*3/uL 1.88-7.09 IMM GRAN x10^3 (test code = 4718880047) 0.03 10*3/uL 0.00-0.06 LYMPH x10^3 (test code = 731-0) 2.32 10*3/uL 1.32-3.29 MONO x10^3 (test code = 742-7) 0.55 10*3/uL 0.33-0.92 EOS x10^3 (test code = 711-2) 0.09 10*3/uL 0.03-0.39 BASO x10^3 (test code = 704-7) 0.06 10*3/uL 0.01-0.07 Lab Interpretation (test code = 88477-8) Abnormal [facility] METABOLIC PANEL (NA, K, CL, CO2, GLUCOSE, BUN, CREATININE, CA)2022-05-08 06:37:01* Test Item Value Reference Range Interpretation Comme nts NA (test code = 7468796729) 137 mmol/L 135-145 K (test code = 1772955077) 3.8 mmol/L 3.5-5 CL (test code = 4824072369) 103 mmol/L 98-108 CO2 TOTAL (test code = 2522212420) 24 mmol/L 23-31 AGAP (test code = 5112842898) 2-16 BUN (test code = 9479086729) 13 mg/dL 7-23 GLUCOSE (test code = 3588781234) 90 mg/dL 70-110 CREATININE (test code = 1177267733) 0.69 mg/dL 0.5-1.04 CALCIUM (test code = 2135498100) 8.5 mg/dL 8.6-10.6 L eGFR (test code = 9487597132) mL/min/1.73m2 LYNDSAY (test code = LYNDSAY) Association [...] imaging tests). Lab Interpretation (test code = 50744-0) Abnormal [facility] CenterMAGNESIUM2022-10-20 06:37:01* Test Item Value Reference Range Interpretation Comme nts MAGNESIUM (test code = 1852614455) 2.1 mg/dL 1.7-2.4 Lab Interpretation (test cod e = 38623-2) Normal [facility] CenterPHOSPHORUS2022-10-20 06:37:01* Test Item Value Reference Range Interpretation Comme nts PHOSPHORUS (test code = 9658332582) 4.7 mg/dL 2.5-5 Lab Interpretation (test cod e = 51715-1) Normal [facility] CenterCB WITH [id number] 06:11:54* Test Item Value Reference Range Interpretation Comme nts WBC (test code = 6690-2) See_Comment [Automated [employer]] The system which generated this result transmitted reference range: 4.30 - 11.10 10*3/?L. The reference range was not used to interpret this result as normal/abnormal. RBC (test code = 789-8) See_Comment [Automated [employer]] The system which generated this result transmitted [...] 32.4 g/dL 31.6-35.1 RDW-SD (test code = 41484-8) 51.0 fL 39-49.9 H RDW-CV (test code = 788-0) 16.5 % 12-15.5 H PLT (test code = 777-3) See_Comment H [Automated messa ge] The system which generated this result transmitted reference range: 166 - 358 10*3/?L. The reference range was not used to interpret this result as normal/abnormal. MPV (test code = 00256-2) 8.3 fL 9.5-12.9 L NRBC/100 WBC (test code = 9812245237) See_Comment [Automated [employer] ssage] The system which generated this result transmitted reference range: 0.0 - 10.0 /100 WBCs. The reference range was not used to interpret this result as normal/abnormal. NRBC x10^3 (test code = 5790408204) See_Comment [Automated messa ge] The system which generated this result transmitted reference range: 10*3/?L. The reference range was not used to interpret this result as normal/abnormal. GRAN MAT (NEUT) % (test code = 770-8) 64.5 % IMM GRAN % (test code = 1085378871) 0.50 % LYMPH % (test code = 736-9) 27.1 % MONO % (test code = 5905-5) 6.6 % EOS % (test code = 713-8) 0.6 % BASO % (test code = 706-2) 0.7 % GRAN MAT x10^3(ANC) (test code = 0931550916) 5.28 10*3/uL 1.88-7.09 IMM GRAN x10^3 (test code = 4428373830) 0.04 10*3/uL 0-0.06 LYMPH x10^3 (test code = 731-0) 2.22 10*3/uL 1.32-3.29 MONO x10^3 (test code = 742-7) 0.54 10*3/uL 0.33-0.92 EOS x10^3 (test code = 711-2) 0.05 10*3/uL 0.03-0.39 BASO x10^3 (test code = 704-7) 0.06 10*3/uL 0.01-0.07 Lab Interpretation (test code = 68763-2) [facility]normal [facility]2022-[facility]-07 01:18:10* Test Item Value Reference Range Interpretation Comme nts POCT GLU (test code = 4104809758) 120 mg/dL 70-110 H Lab Interpretation (test cod e = 11874-6) Abnormal [facility] CenterType and Screen - ONCE [id number] 05:46:35* Test Item Value Reference Range Interpretation Comme nts ABO & RH (test code = 20) O POSITIVE Performed at [facility] Laboratory Services [facility] Blood [address] Free: [phone] No. [id number] IAT (test code = 1185) Negative Performed at [facility] Laboratory [facility] Blood [address] Free: [phone] No. [id number] [facility]BASIC [facility]OLIC PAN[facility] (NA, K, CL, CO2, GLUCOSE, BUN, CREATININE, CA)2022-05-05 08:22:57* Test Item Value Reference Range Interpretation Comme nts NA (test code = 7428637132) 136 mmol/L 135-145 K (test code = 7267837323) 4.9 mmol/L 3.5-5 CL (test code = 2296679874) 108 mmol/L 98-108 CO2 TOTAL (test code = 8670009283) 22 mmol/L 23-31 L AGAP (test code = 8475236138) 2-16 BUN (test code = 2172623730) 12 mg/dL 7-23 GLUCOSE (test code = 5469762036) 155 mg/dL 70-110 H CREATININE (test code = 5326310224) 0.63 mg/dL 0.5-1.04 CALCIUM (test code = 6709020498) 8.4 mg/dL 8.6-10.6 L eGFR (test code = 4519039618) mL/min/1.73m2 LYNDSAY (test code = LYNDSAY) Association [...] imaging tests). Lab Interpretation (test code = 34171-2) Abnormal [facility] CenterPROTHROMBIN TIME / [id number] 08:22:37* Test Item Value Reference Range Interpretation Comme [facility] PROTIME PATIENT (test code = 5964-2) See_Comment [[employer]] The system which generated this result transmitted reference range: 10.1 - 12.6 Seconds. The reference range was not used to interpret this result as normal/abnormal. INR (test code = 6301-6) Normal INR <1.1; Warfarin Therapeutic range 2.0 to 3.0 or 2.5 to 3.5, depending upon the indications. Lab Interpretation (test code = 87955-7) Normal [facility] CenteraPTT2022-10-17 08:22:37* Test Item Value Reference Range Interpretation Comme [facility] APTT Patient (test code = 3173-2) See_Comment [[employer]] The system which generated this result transmitted reference range: 26 - 36 Seconds. The reference range was not used to interpret this result as normal/abnormal. Lab Interpretation (test code = 66541-7) Normal [facility] CenterFIBRINOGEN2022-10-17 08:22:37* Test Item Value Reference Range Interpretation Comme nts Fibrinogen (test code = 2132645460) 294 mg/dL 167-453 Lab Interpretation (test cod e = 07522-8) Normal [facility] CenterCB WITH [id number] 08:15:01* Test Item Value Reference Range Interpretation [...] g/dL 31.6-35.1 L RDW-SD (test code = 46412-6) 52.9 fL 39-49.9 H RDW-CV (test code = 788-0) 16.8 % 12-15.5 H PLT (test code = 777-3) See_Comment H [Automated messa ge] The system which generated this result transmitted reference range: 166 - 358 10*3/?L. The reference range was not used to interpret this result as normal/abnormal. MPV (test code = 59952-6) 8.3 fL 9.5-12.9 L NRBC/100 WBC (test code = 5601172898) See_Comment [Automated [employer] ssage] The system which generated this result transmitted reference range: 0.0 - 10.0 /100 WBCs. The reference range was not used to interpret this result as normal/abnormal. NRBC x10^3 (test code = 9253361228) See_Comment [Automated messa ge] The system which generated this result transmitted reference range: 10*3/?L. The reference range was not used to interpret this result as normal/abnormal. GRAN MAT (NEUT) % (test code = 770-8) 86.4 % IMM GRAN % (test code = 9933232756) 0.40 % LYMPH % (test code = 736-9) 11.7 % MONO % (test code = 5905-5) 1.1 % EOS % (test code = 713-8) 0.0 % BASO % (test code = 706-2) 0.4 % GRAN MAT x10^3(ANC) (test code = 9445247141) 6.36 10*3/uL 1.88-7.09 IMM GRAN x10^3 (test code = 3222009580) 0.03 10*3/uL 0-0.06 LYMPH x10^3 (test code = 731-0) 0.86 10*3/uL 1.32-3.29 L MONO x10^3 (test code = 742-7) 0.08 10*3/uL 0.33-0.92 L EOS x10^3 (test code = 711-2) 0.03-0.39 L BASO x10^3 (test code = 704-7) 0.03 10*3/uL 0.01-0.07 Lab Interpretation (test code = 47570-5) Abnormal [facility] CenterVITAMIN D, [id number] 20:14:03* Test Item Value Reference Range Interpretation Comme nts VIT D 25OH (test code = 26437-3) 22 ng/mL 25-80 L LYNDSAY (test code = LYNDSAY) Deficiency: <20 ng/mLInsufficiency: 20-24 ng/mLOptimal: 25-80 ng/mL Lab Interpretation (test code = 29503-2) Abnormal [facility] CenterBASI METABOLIC PANEL (NA, K, CL, CO2, GLUCOSE, BUN, CREATININE, CA)2022-04-15 11:27:57* Test Item Value Reference Range Interpretation Comme nts NA (test code = 3491132450) 138 mmol/L 135-145 K (test code = 0522236720) 3.9 mmol/L 3.5-5 CL (test code = 6912648240) 106 mmol/L 98-108 CO2 TOTAL (test code = 8899330011) 23 mmol/L 23-31 AGAP (test code = 9649822316) 2-16 BUN (test code = 0330507601) 10 mg/dL 7-23 GLUCOSE (test code = 7132485065) 91 mg/dL 70-110 CREATININE (test code = 8299052830) 0.65 mg/dL 0.5-1.04 CALCIUM (test code = 8409824203) 8.1 mg/dL 8.6-10.6 L eGFR (test code = 3237216095) mL/min/1.73m2 LYNDSAY (test code = LYNDSAY) Association [...] imaging tests). Lab Interpretation (test code = 15494-1) Abnormal [facility] CenterSTROKE Protocol - Transthoracic echo (TTE) 2022-04-14 22:07:33* Test Item Value Reference Range Interpretation Comme nts Height (test code = 6175144339) in Weight (test code = 2018834477) lbs Systolic BP (test code = 9086379812) mmHg Diastolic BP (test code = 1197999197) mmHg Heart Rate (test code = 1359869048) bpm BSA (test code = 9754999558) 1.94 m2 TASV (test code = 3271400972) 15.5 cm/s LVIDD (test code = 0834317994) 6.00 cm Left Ventricular End Diastolic Volume by Teichholz Method (test code = 1313137) 183.0 mL IVS (test code = 9941924915) 1.09 cm Interventricular Septum Diastolic Thickness by 2D (test code = 0307712) 1.09 cm LVPWD (test code = 8361973162) 0.94 cm PW (test code = 8457572349) 0.94 cm 0.6-1.1 EF(Teich) (test code = 3479483360) 40.30 % LVIDS (test code = 2107941179) 4.80 cm Left Ventricular End Systolic Volume by Teichholz Method (test code = 6581007) 109.2 mL FS (test code = 9002931602) 20 % EF - 2D (test code = 74596852) 40.30 % LVOT diameter (test code = 5363149602) 2.05 cm LVOT area (test code = 1439544155) 3.30 cm2 Ao root diam (test code = 9850071463) 3.10 cm Aortic root (test code = 6938000635) 3.1 cm Ao root annulus (test code = 5774178776) 3.1 cm LA size (test code = 6472404714) 4.2 cm LAV(MOD-sp4) (test code = 4280851610) 64.90 mL MV Peak A Evette (test code = 2003142713) 115.7 cm/s E wave decelartion time (test code = 5298089401) 0.15 s MV Peak E Evette (test code = 0839163794) 106.2 cm/s E/A ratio (test code = 8778622493) ratio LVOT stroke volume (test code = 0247228869) 48.30 cm3 LVOT peak evette (test code = 6568173190) 78.4 cm/s LVOT mn grad (test code = 0009771177) mmHg AV LVOT peak gradient (test code = 8713260878) mmHg LVOT peak VTI (test code = 4142671269) 14.7 cm LV V1 mean (test code = 9862176992) 51.40 cm/s Ao peak evette (test code = 2170912278) 154.7 cm/s AV area peak evette (test code = 2814920136) 1.7 cm2 Ao max PG (test code = 9371400437) 9.60 mm[Hg] AV peak gradient (test code = 2030502531) mmHg AV regurgitation pressure 1/2 time (test code = 2733981182) 257.3 ms AI dec slope (test code = 3301548345) 498.10 cm/s2 AI max evette (test code = 5063094248) 437.60 cm/s AI max PG (test code = 8234729674) 77.80 mm[Hg] Tapse (test code = 3832660405) 2.19 cm LA Volume Index (BP) (test code = 3131128288) 32.0 mL/m2 LA volume (BP) (test code = 0479501756) 62.1 mL LAV(MOD-sp2) (test code = 7985075140) 52.70 mL A4C EF (test code = 5844986599) 44.80 % EF(sp4-el) (test code = 1882620486) 45.20 % SV(MOD-sp4) (test code = 8902878033) 71.20 mL SV(sp4-el) (test code = 3277156169) 73.90 mL LV Diastolic Volume (BP) (test code = 2034961332) 146.3 mL A2C EF (test code = 1577190264) 52.00 % EF(MOD-bp) (test code = 3529754990) 46.70 % EF(sp2-el) (test code = 3736460245) 52.40 % LV Systolic Volume (BP) (test code = 2512455242) 77.9 mL SV(MOD-bp) (test code = 8243326321) 68.40 mL SV(MOD-sp2) (test code = 1371847913) 69.20 mL EF (test code = 0178504847) Left Ventricular Stroke Volume by 2-D Biplane-MOD (test code = 0018300) 68.4 mL Radiology Study observation (narrative) (test code = 38702-0) LYNDSAY (test code = LYNDSAY) ?Left?Ventricle: Left [...] agent used and saline contrast was performed. [facility] CenterLE[facility] (LEVETIRACETAM)2022-04-14 16:48:36* Test Item Value Reference Range Interpretation Comme nts KEPPRA (test code = 1400683070) 12-46 L LYNDSAY (test code = LYNDSAY) Therapeutic range: 12-46 ?g/mL ? ?Toxic: Not well established.Test developed and characteristics determined by [facility] Laboratory Services. Lab Interpretation (test code = 86959-0) Abnormal [facility] Metabolic Panel (Na, K, Cl, CO2, Glucose, BUN, Creatinine, Ca)2022-04-14 10:50:11* Test Item Value Reference Range Interpretation Comme [facility] NA (test code = 0913507981) 136 mmol/L 135-145 K (test code = 1517159379) 3.8 mmol/L 3.5-5 CL (test code = 3448849389) 105 mmol/L 98-108 CO2 TOTAL (test code = 5355583098) 25 mmol/L 23-31 AGAP (test code = 6725510750) 2-16 BUN (test code = 7743225979) 9 mg/dL 7-23 GLUCOSE (test code = 9033090377) 101 mg/dL 70-110 CREATININE (test code = 5520613226) 0.66 mg/dL 0.5-1.04 CALCIUM (test code = 2778096822) 8.1 mg/dL 8.6-10.6 L eGFR (test code = 2301538155) mL/min/1.73m2 LYNDSAY (test code = LYNDSAY) Association [...] imaging tests). Lab Interpretation (test code = 86177-2) Abnormal [facility] CenterMagensium, [id number] 10:50:11* Test Item Value Reference Range Interpretation Comme nts MAGNESIUM (test code = 4215659220) 1.9 mg/dL 1.7-2.4 Lab Interpretation (test cod e = 14865-4) Normal [facility] CenterThyroid Stimulating Deoyyqm6242-99-45 22:21:44 * Test Item Value Reference Range Interpretation Comme nts TSH (test code = 9184587116) See_Comment Biotin has been reported to cause a negative bias, interpret results relative to patient's use of biotin. [Automated message] The system which generated this result transmitted reference range: 0.45 - 4.70 mIU/L. The reference range was not used to interpret this result as normal/abnormal. Lab Interpretation (test code = 67662-9) Normal [facility] CenterGLYCOSYLATED HEMOGLOBIN (A1C)2022-04-13 21:53:43* Test Item Value Reference Range Interpretation Comme nts HGB A1C (test code = 4548-4) 5.8 % 4-5.7 H LYNDSAY (test code = LYNDSAY) Reference RangesNormal: <5.7%Prediabetes: 5.7 - 6.4%Diabetes: > 6.5% Lab Interpretation (test code = 19649-9) [facility]84203)(TOTAL CHOLESTEROL, TRIGLYCERIDES, HDL)2022-04-13 21:34:53* Test Item Value Reference Range Interpretation Comme nts CHOL (test code = 7889001142) 201 mg/dL 120-200 H HDL (test code = 5902039001) 56 mg/dL See_Comment [Automated [employer]] The system which generated this result transmitted reference range: >=50. The reference range was not used to interpret this result as normal/abnormal. HDLC RATIO (test code = 6186323974) See_Comment [Automated [employer]] The system which generated this result transmitted reference range: <=4.5. The reference range was not used to interpret this result as normal/abnormal. TRIG (test code = 0380235821) 355 mg/dL 30-170 H LDL CHOL (test code = 38346-4) 74 mg/dL See_Comment [Automated [employer]] The system which generated this result transmitted reference range: <=160. The reference range was not used to interpret this result as normal/abnormal. VLDL (test code = 8924891040) 71 mg/dL 5-60 H Lab Interpretation (test code = 51779-4) [facility] Code [id number] 18:46:27* Test Item Value Reference Range Interpretation Comments TROPONIN I (test code = 1376284253) 0.013 ng/mL See_Comment [Automated message] The system [...] of biotin. Lab Interpretation (test code = 47707-4) [facility] (NA, K, CL, CO2, Glucose, BUN, Creatinine, CA) - Code [id number] 18:35:07* Test Item Value Reference Range Interpretation Comme nts NA (test code = 4515330331) 136 mmol/L 135-145 K (test code = 2152924072) 4.3 mmol/L 3.5-5 CL (test code = 5700859811) 105 mmol/L 98-108 CO2 TOTAL (test code = 7589139333) 27 mmol/L 23-31 AGAP (test code = 5371393812) 2-16 BUN (test code = 0460066612) 8 mg/dL 7-23 GLUCOSE (test code = 2544248401) 130 mg/dL 70-110 H CREATININE (test code = 8375753048) 0.75 mg/dL 0.5-1.04 CALCIUM (test code = 4965469969) 8.5 mg/dL 8.6-10.6 L eGFR (test code = 9772228429) mL/min/1.73m2 LYNDSAY (test code = LYNDSAY) Association [...] imaging tests). Lab Interpretation (test code = 03984-7) [facility]normal [facility] - Code [id number] 18:32:46* Test Item Value Reference Range Interpretation Comme nts APTT Patient (test code = 3173-2) See_Comment [Automated message] The system which generated this result transmitted reference range: 23 - 38 Seconds. The reference range was not used to interpret this result as normal/abnormal. LYNDSAY (test code = LYNDSAY) The [facility] patient population mean normal value for aPTT is 30 seconds. Lab Interpretation (test code = 29967-4) Normal [facility]th[facility] Time / INR - Code [id number] 18:30:45* Test Item Value Reference Range Interpretation [...] the indications. Lab Interpretation (test code = 24011-2) Normal [facility]CBC without Diff - Code [id number] 18:23:07* Test Item Value Reference Range Interpretation [...] result as normal/abnormal. MPV (test code = 92971-0) 8.1 fL 9.5-12.9 L RDW-CV (test code = 788-0) 16.1 % 12-15.5 H RDW-SD (test code = 43193-5) 49.2 fL 39-49.9 NRBC x10^3 (test code = 1729249924) See_Comment [Automated [employer]] The system which generated this result transmitted reference range: 10*3/?L. The reference range was not used to interpret this result as normal/abnormal. NRBC/100 WBC (test code = 4178224597) See_Comment [Automated [employer]] The system which generated this result transmitted reference range: 0.0 - 10.0 /100 WBCs. The reference range was not used to interpret this result as normal/abnormal. IPF % (test code = 1654229039) Lab Interpretation (test code = 41081-0) [id number] 21:06:40* Test Item Value Reference Range Interpretation Comments TROPONIN I (test code = 8080577373) 0.005 ng/mL See_Comment [Automated message] The system [...] of biotin. Lab Interpretation (test code = 97214-1) Normal [facility]. METABOLIC PANEL (30119)2021-11-23 20:55:42* Test Item Value Reference Range Interpretation Comme nts NA (test code = 3812263204) 137 mmol/L 135-145 K (test code = 9328711215) 4.3 mmol/L 3.5-5.0 CL (test code = 1356275659) 104 mmol/L 98-108 CO2 TOTAL (test code = 9144212697) 22 mmol/L 23-31 L AGAP (test code = 7674225274) 2-16 BUN (test code = 9321932283) 15 mg/dL 7-23 GLUCOSE (test code = 0564902093) 114 mg/dL 70-110 H CREATININE (test code = 9108774239) 0.68 mg/dL 0.50-1.04 TOTAL BILI (test code = 7984225835) 0.5 mg/dL 0.1-1.1 CALCIUM (test code = 5698619093) 9.1 mg/dL 8.6-10.6 T PROTEIN (test code = 1423815435) 7.3 g/dL 6.3-8.2 ALBUMIN (test code = 8161984400) 4.4 g/dL 3.5-5.0 ALK PHOS (test code = 9224206831) 243 U/L 34-122 H ALTv (test code = 1742-6) 24 U/L 5-35 AST(SGOT) (test code = 5207539684) 30 U/L 13-40 eGFR (test code = 8242782807) mL/min/1.73m2 LYNDSAY (test code = LYNDSAY) Association [...] imaging tests). Lab Interpretation (test code = 53271-6) [facility]normal [facility] CenterLIPASE2022-[facility] 20:55:22* Test Item Value Reference Range Interpretation Comme nts LIPASE (test code = 7473265277) 96 U/L 0-220 Lab Interpretation (test cod e = 66686-5) Normal [facility] CenterPOCT [id number] 20:46:00* Test Item Value Reference Range Interpretation Comme nts POCT PREG (test code = 1605) negative On board controls acceptable with C Line (test code = 3574) present POCT PREG LOT # (test code = 3575) [id number] POCT PREG TEST DATE ( test code = 3576) 04/18/2023 Lab Interpretation (test cod e = 33814-8) Normal [facility]CBC WITH [id number] 20:40:38* Test Item Value Reference Range Interpretation Comme nts WBC (test code = 6690-2) See_Comment [Automated [employer]] The system which generated this result transmitted reference range: 4.30 - 11.10 10*3/?L. The reference range was not used to interpret this result as normal/abnormal. RBC (test code = 789-8) See_Comment [Automated [employer]] The system which generated this result transmitted [...] 31.8 g/dL 31.6-35.1 RDW-SD (test code = 44878-2) 53.7 fL 39.0-49.9 H RDW-CV (test code = 788-0) 17.2 % 12.0-15.5 H PLT (test code = 777-3) See_Comment H [Automated messa ge] The system which generated this result transmitted reference range: 166 - 358 10*3/?L. The reference range was not used to interpret this result as normal/abnormal. MPV (test code = 97987-0) 8.5 fL 9.5-12.9 L NRBC/100 WBC (test code = 5042431699) See_Comment [Automated [employer] ssage] The system which generated this result transmitted reference range: 0.0 - 10.0 /100 WBCs. The reference range was not used to interpret this result as normal/abnormal. NRBC x10^3 (test code = 0327251975) <0.01 See_Comment [Automated messa ge] The system which generated this result transmitted reference range: 10*3/?L. The reference range was not used to interpret this result as normal/abnormal. GRAN MAT (NEUT) % (test code = 770-8) 53.7 % IMM GRAN % (test code = 1937967628) 0.90 % LYMPH % (test code = 736-9) 32.6 % MONO % (test code = 5905-5) 10.1 % EOS % (test code = 713-8) 1.5 % BASO % (test code = 706-2) 1.2 % GRAN MAT x10^3(ANC) (test code = 5475051151) 4.98 10*3/uL 1.88-7.09 IMM GRAN x10^3 (test code = 0374526882) 0.08 10*3/uL 0.00-0.06 H LYMPH x10^3 (test code = 731-0) 3.02 10*3/uL 1.32-3.29 MONO x10^3 (test code = 742-7) 0.94 10*3/uL 0.33-0.92 H EOS x10^3 (test code = 711-2) 0.14 10*3/uL 0.03-0.39 BASO x10^3 (test code = 704-7) 0.11 10*3/uL 0.01-0.07 H Lab Interpretation (test code = 65572-2) Abnormal [facility] GLU[facility]SE (AUTOMATED)2021-11-23 20:17:33* Test Item Value Reference Range Interpretation Comme nts POCT GLU (test code = 1324227124) 111 mg/dL 70-110 H Notified Provide r Lab Interpretation (test code = 95878-2) [facility] THINPREP, [id number] 00:00:00 * Test Item Value Reference Range Interpretation Comme [facility] SOURCE: (test code = 8001) Endocervical SLIDES: (test code = 8011) 1 LMP: (test code = 8021) 06/03/2021 SPECIMEN ADEQUACY: (test code = 12235) (NOTE) INTERPRETATION: (test code = 51451) ASCUS/EPITH. 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 LOCATION: (test code = 81301) (NOTE) CPT: (test code = 8140) (NOTE) PAP TEST, THINPREP, [id number] 00:00:00* Test Item Value Reference Range Interpretation Comme [facility] SOURCE: (test code = 8001) Endocervical SLIDES: (test code = 8011) 1 LMP: (test code = 8021) 06/03/2021 SPECIMEN ADEQUACY: (test code = 75512) (NOTE) INTERPRETATION: (test code = 41648) ASCUS/EPITH. 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 LOCATION: (test code = 30915) (NOTE) CPT: (test code = 8140) (NOTE) PAP TEST, THINPREP, [id number] 00:00:00* Test Item Value Reference Range Interpretation Comme nts SOURCE: (test code = 8001) Endocervical SLIDES: (test code = 8011) 1 LMP: (test code = 8021) 06/03/2021 SPECIMEN ADEQUACY: (test code = 04839) (NOTE) INTERPRETATION: (test code = 70195) ASCUS/EPITH. 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 LOCATION: (test code = [facility]) (NOTE) CPT: (test code = 8140) (NOTE) PAP TEST, THINPREP, [id number] 00:00:00* Test Item Value Reference Range Interpretation Comme nts SOURCE: (test code = 8001) Endocervical SLIDES: (test code = 8011) 1 LMP: (test code = 8021) 06/03/2021 SPECIMEN ADEQUACY: (test code = 47893) (NOTE) INTERPRETATION: (test code = 23270) ASCUS/EPITH. 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 LOCATION: (test code = [facility]) (NOTE) CPT: (test code = 8140) (NOTE) HPV HIGH RISK WITH GENOTYPE, [id number] 00:00:00* Test Item Value Reference Range Interpretation Comme nts HPV HIGH RISK INTERP (test c ode = 91969) POSITIVE HPV 16 (test code = 95225) POSITIVE HPV 18 (test code = 36842) NEGATIVE HPV, HR, OTHER GENOTYPES (te st code = 58613) POSITIVE HPV HIGH RISK WITH GENOTYPE, [id number] 00:00:00* Test Item Value Reference Range Interpretation Comme nts HPV HIGH RISK INTERP (test c ode = 70573) POSITIVE HPV 16 (test code = 91025) POSITIVE HPV 18 (test code = 93425) NEGATIVE HPV, HR, OTHER GENOTYPES (te st code = 05211) POSITIVE HPV HIGH RISK WITH GENOTYPE, [id number] 00:00:00* Test Item Value Reference Range Interpretation Comme nts HPV HIGH RISK INTERP (test c ode = 39442) POSITIVE HPV 16 (test code = 61493) POSITIVE HPV 18 (test code = 72080) NEGATIVE HPV, HR, OTHER GENOTYPES (te st code = 16769) POSITIVE HPV HIGH RISK WITH GENOTYPE, [id number] 00:00:00* Test Item Value Reference Range Interpretation Comme nts HPV HIGH RISK INTERP (test c ode = 41462) POSITIVE HPV 16 (test code = 16576) POSITIVE HPV 18 (test code = 43417) NEGATIVE HPV, HR, OTHER GENOTYPES (te st code = 24824) POSITIVE [id number] 03:22:48* Test Item Value Reference Range Interpretation Comme nts APPEARANCE (test code = 2141682195) Hazy Clear A COLOR (test code = 2591501120) Yellow Yellow PH (test code = 3986391376) 4.8-8.0 SP GRAVITY (test code = 1056599560) 1.003-1.030 GLU U QUAL (test code = 8497781581) Normal Normal BLOOD (test code = 2546388788) Negative Negative Interference fro m ascorbic acid may cause false negative results. KETONES (test code = 6532940189) 5 mg/dL Negative A PROTEIN (test code = 2887-8) Negative Negative UROBILIN (test code = 9331543585) 4.0 mg/dL Normal A BILIRUBIN (test code = 3654076402) Negative Negative NITRITE (test code = 8910303894) Negative Negative LEUK GRUPO (test code = 4378187627) Negative Negative RBC/HPF (test code = 3497646304) See_Comment [Automated [employer]] The system which generated this result transmitted reference range: 0 - 3 HPF. The reference range was not used to interpret this result as normal/abnormal. WBC/HPF (test code = 0092360724) <1 See_Comment [Automated [employer] ge] The system which generated this result transmitted reference range: 0 - 5 HPF. The reference range was not used to interpret this result as normal/abnormal. BACTERIA (test code = 9543700306) Few Negative A SQ EPITH (test code = 1498804665) HPF Lab Interpretation (test code = 53304-6) [facility]normal [facility]IS2021[facility] 03:22:48* Test Item Value Reference Range Interpretation Comme nts APPEARANCE (test code = 2658947255) Hazy Clear A COLOR (test code = 6782345689) Yellow Yellow PH (test code = 5044930560) 4.8-8.0 SP GRAVITY (test code = 1751947329) 1.003-1.030 GLU U QUAL (test code = 7816413648) Normal Normal BLOOD (test code = 8227814942) Negative Negative KETONES (test code = 1548132448) 5 mg/dL Negative A PROTEIN (test code = 2887-8) Negative Negative UROBILIN (test code = 5349630514) 4.0 mg/dL Normal A BILIRUBIN (test code = 6938941463) Negative Negative NITRITE (test code = 3871752887) Negative Negative LEUK GRUPO (test code = 6005572841) Negative Negative RBC/HPF (test code = 2130868478) See_Comment [Automated [employer]] The system which generated this result transmitted reference range: 0 - 3 HPF. The reference range was not used to interpret this result as normal/abnormal. WBC/HPF (test code = 4311390024) <1 See_Comment [Automated [employer]] The system which generated this result transmitted reference range: 0 - 5 HPF. The reference range was not used to interpret this result as normal/abnormal. BACTERIA (test code = 9659728640) Few Negative A SQ EPITH (test code = 3349531758) HPF Lab Interpretation (test code = 16626-6) [facility]normal [facility]TR[facility] [id number] 02:45:00* Test Item Value Reference Range Interpretation Comments TROPONIN I (test code = 0223266983) 0.002 ng/mL See_Comment [Automated message] The system [...] of biotin. Lab Interpretation (test code = 06149-4) Normal [facility]TR[facility] [id number] 02:45:00* Test Item Value Reference Range Interpretation Comme nts TROPONIN I (test code = 0814468682) 0.002 ng/mL See_Comment [Automated [employer]] The system which generated this result transmitted reference range: <=0.034. The reference range was not used to interpret this result as normal/abnormal. LYNDSAY (test code = LYNDSAY) Lab Interpretation (test code = 15332-2) Normal [facility]N-[facility]MINAL [id number] 02:41:57* Test Item Value Reference Range Interpretation Comme nts NT-proBNP (test code = 8586057307) 169 pg/mL See_Comment H [Automated message] The system which generated this result transmitted reference range: <=125. The reference range was not used to interpret this result as normal/abnormal. LYNDSAY (test code = LYNDSAY) Biotin has been reported to cause a negative bias, interpret results relative to patient's use of biotin. Lab Interpretation (test code = 83393-2) Abnormal [facility]MINAL [id number] 02:41:57* Test Item Value Reference Range Interpretation Comme nts NT-proBNP (test code = 3757973640) 169 pg/mL See_Comment H [Automated [employer]] The system which generated this result transmitted reference range: <=125. The reference range was not used to interpret this result as normal/abnormal. LYNDSAY (test code = LYNDSAY) Lab Interpretation (test code = 80677-9) Abnormal [facility]. METABOLIC PANEL (15058)2021-03-17 02:09:13* Test Item Value Reference Range Interpretation Comme nts NA (test code = 4653746451) 137 mmol/L 135-145 K (test code = 4920627373) 4.2 mmol/L 3.5-5.0 CL (test code = 2774074025) 102 mmol/L 98-108 CO2 TOTAL (test code = 2636771394) 25 mmol/L 23-31 AGAP (test code = 4110310070) 2-16 BUN (test code = 6991539954) 18 mg/dL 7-23 GLUCOSE (test code = 1380185058) 144 mg/dL 70-110 H CREATININE (test code = 0748774007) 0.77 mg/dL 0.50-1.04 TOTAL BILI (test code = 4135379730) 0.4 mg/dL 0.1-1.1 CALCIUM (test code = 0896096103) 8.9 mg/dL 8.6-10.6 T PROTEIN (test code = 7316841500) 6.8 g/dL 6.3-8.2 ALBUMIN (test code = 9450195851) 3.9 g/dL 3.5-5.0 ALK PHOS (test code = 2139558701) 84 U/L 34-122 ALTv (test code = 1742-6) 13 U/L 5-35 AST(SGOT) (test code = 0867572074) 17 U/L 13-40 eGFR (test code = 4559429403) mL/min/1.73m2 LYNDSAY (test code = LYNDSAY) Association [...] imaging tests). Lab Interpretation (test code = 29431-8) Abnormal [facility]. METABOLIC PANEL (09654)2021-03-17 02:09:13* Test Item Value Reference Range Interpretation Comme nts NA (test code = 0761405448) 137 mmol/L 135-145 K (test code = 9355617589) 4.2 mmol/L 3.5-5.0 CL (test code = 8593119956) 102 mmol/L 98-108 CO2 TOTAL (test code = 2356338106) 25 mmol/L 23-31 AGAP (test code = 0521954464) 2-16 BUN (test code = 5195503277) 18 mg/dL 7-23 GLUCOSE (test code = 7611685510) 144 mg/dL 70-110 H CREATININE (test code = 4454153421) 0.77 mg/dL 0.50-1.04 TOTAL BILI (test code = 3620076765) 0.4 mg/dL 0.1-1.1 CALCIUM (test code = 3644615806) 8.9 mg/dL 8.6-10.6 T PROTEIN (test code = 2108076966) 6.8 g/dL 6.3-8.2 ALBUMIN (test code = 6365037311) 3.9 g/dL 3.5-5.0 ALK PHOS (test code = 3374584211) 84 U/L 34-122 ALTv (test code = 1742-6) 13 U/L 5-35 AST(SGOT) (test code = 4061388919) 17 U/L 13-40 eGFR (test code = 6547644418) mL/min/1.73m2 LYNDSAY (test code = LYNDSAY) Lab Interpretation (test cod e = 83750-5) Abnormal [facility] WITH [id number] 01:56:33* Test Item Value Reference Range Interpretation [...] g/dL 31.6-35.1 L RDW-SD (test code = 71870-0) 55.5 fL 39.0-49.9 H RDW-CV (test code = 788-0) 18.9 % 12.0-15.5 H PLT (test code = 777-3) See_Comment H [Automated messa ge] The system which generated this result transmitted reference range: 166 - 358 10*3/?L. The reference range was not used to interpret this result as normal/abnormal. MPV (test code = 57363-3) 8.2 fL 9.5-12.9 L NRBC/100 WBC (test code = 9083612851) See_Comment [Automated [employer] ssage] The system which generated this result transmitted reference range: 0.0 - 10.0 /100 WBCs. The reference range was not used to interpret this result as normal/abnormal. NRBC x10^3 (test code = 7658561548) <0.01 See_Comment [Automated messa ge] The system which generated this result transmitted reference range: 10*3/?L. The reference range was not used to interpret this result as normal/abnormal. GRAN MAT (NEUT) % (test code = 770-8) 61.7 % IMM GRAN % (test code = 1417207248) 0.80 % LYMPH % (test code = 736-9) 28.5 % MONO % (test code = 5905-5) 6.3 % EOS % (test code = 713-8) 1.8 % BASO % (test code = 706-2) 0.9 % GRAN MAT x10^3(ANC) (test code = 2659875703) 7.31 10*3/uL 1.88-7.09 H IMM GRAN x10^3 (test code = 6884185213) 0.09 10*3/uL 0.00-0.06 H LYMPH x10^3 (test code = 731-0) 3.38 10*3/uL 1.32-3.29 H MONO x10^3 (test code = 742-7) 0.75 10*3/uL 0.33-0.92 EOS x10^3 (test code = 711-2) 0.21 10*3/uL 0.03-0.39 BASO x10^3 (test code = 704-7) 0.11 10*3/uL 0.01-0.07 H Lab Interpretation (test code = 02340-5) Abnormal [facility] WITH [id number] 01:56:33* Test Item Value Reference Range Interpretation [...] g/dL 31.6-35.1 L RDW-SD (test code = 54946-8) 55.5 fL 39.0-49.9 H RDW-CV (test code = 788-0) 18.9 % 12.0-15.5 H PLT (test code = 777-3) See_Comment H [Automated messa ge] The system which generated this result transmitted reference range: 166 - 358 10*3/?L. The reference range was not used to interpret this result as normal/abnormal. MPV (test code = 30046-9) 8.2 fL 9.5-12.9 L NRBC/100 WBC (test code = 7916073427) See_Comment [Automated [employer] ssage] The system which generated this result transmitted reference range: 0.0 - 10.0 /100 WBCs. The reference range was not used to interpret this result as normal/abnormal. NRBC x10^3 (test code = 1026887761) <0.01 See_Comment [Automated messa ge] The system which generated this result transmitted reference range: 10*3/?L. The reference range was not used to interpret this result as normal/abnormal. GRAN MAT (NEUT) % (test code = 770-8) 61.7 % IMM GRAN % (test code = 2249917569) 0.80 % LYMPH % (test code = 736-9) 28.5 % MONO % (test code = 5905-5) 6.3 % EOS % (test code = 713-8) 1.8 % BASO % (test code = 706-2) 0.9 % GRAN MAT x10^3(ANC) (test code = 5237221850) 7.31 10*3/uL 1.88-7.09 H IMM GRAN x10^3 (test code = 0722911769) 0.09 10*3/uL 0.00-0.06 H LYMPH x10^3 (test code = 731-0) 3.38 10*3/uL 1.32-3.29 H MONO x10^3 (test code = 742-7) 0.75 10*3/uL 0.33-0.92 EOS x10^3 (test code = 711-2) 0.21 10*3/uL 0.03-0.39 BASO x10^3 (test code = 704-7) 0.11 10*3/uL 0.01-0.07 H Lab Interpretation (test code = 39394-7) Abnormal [facility] (ID NOW RAPID TESTING)2021-03-17 01:38:12* Test Item Value Reference Range Interpretation Comme nts SARS-CoV-2 Rapid ID NOW (test code = 26555-9) Not Detected Not Detected LYNDSAY (test code = LYNDSAY) ID NOW COVID-19 As say is an isothermal nucleic acid amplification test intended for the qualitative detection of nucleic acid from SARS-CoV-2 viral RNA in nasopharyngeal (UTILITY SPRAY OPERATOR) specimens. It is used under Emergency [...] clinically indicated. Lab Interpretation (test code = 49198-2) Normal [place] [address] (ID NOW RAPID TESTING)2021-03-17 01:38:12* Test Item Value Reference Range Interpretation Comme nts SARS-CoV-2 Rapid ID NOW (raisa t code = 05636-2) Not Detected Not Detected LYNDSAY (test code = LYNDSAY) Lab Interpretation (test cod e = 44994-0) Normal [place] [address] (ID NOW RAPID TESTING)2021-02-19 17:42:45* Test Item Value Reference Range Interpretation Comme nts SARS-CoV-2 Rapid ID NOW (test code = 63525-6) Not Detected Not Detected LYNDSAY (test code = LYNDSAY) ID NOW COVID-19 As say is an isothermal nucleic acid amplification test intended for the qualitative detection of nucleic acid from SARS-CoV-2 viral RNA in nasopharyngeal (UTILITY SPRAY OPERATOR) specimens. It is used under Emergency [...] clinically indicated. Lab Interpretation (test code = 42273-1) [facility] W [id number] 17:24:55Thickening of the gastric antrum and duodenal [...] 02/19/2021 12:26 PM CDT Patient name: HEATHER MCCABE THOMASDOB: 1970 51 years EXAMINATION: CT [...] Electronicallysigned by James Freeman at 02/19/2021 12:24 PMUnBall[facility] DistrictUrinalysis2021-08-03 17:03:40* Test Item Value Reference Range Interpretation Comme nts APPEARANCE (test code = 9983187943) Hazy Clear A COLOR (test code = 3576330403) Mabel Yellow A PH (test code = 3437931705) 4.8-8.0 SP GRAVITY (test code = 5621837801) 1.003-1.030 H GLU U QUAL (test code = 6420841783) Normal Normal BLOOD (test code = 0932186907) Negative Negative KETONES (test code = 4050814951) 5 mg/dL Negative A PROTEIN (test code = 2887-8) 30 mg/dL Negative A UROBILIN (test code = 7764822863) 4.0 mg/dL Normal A BILIRUBIN (test code = 4582001395) 4 mg/dL Negative A NITRITE (test code = 1596383326) Negative Negative LEUK GRUPO (test code = 1817662918) Negative Negative RBC/HPF (test code = 9662857746) See_Comment H [Automated messa ge] The system which generated this result transmitted reference range: 0 - 3 HPF. The reference range was not used to interpret this result as normal/abnormal. WBC/HPF (test code = 6436111086) See_Comment H [Automated messa ge] The system which generated this result transmitted reference range: 0 - 5 HPF. The reference range was not used to interpret this result as normal/abnormal. BACTERIA (test code = 0939947117) Few Negative A MUCOUS (test code = 7941531029) Moderate Negative LPF A SQ EPITH (test code = 9231383250) HPF CA OXALATE (test code = 1499895973) See_Comment H [Automated messa ge] The system which generated this result transmitted reference range: <=1 HPF. The reference range was not used to interpret this result as normal/abnormal. Ictotest (test code = 2254904785) Negative Lab Interpretation (test code = 12311-4) [facility] Metabolic Bpfkj0309-35-05 16:34:55* Test Item Value Reference Range Interpretation Comme nts NA (test code = 9291009465) 139 mmol/L 135-145 K (test code = 6526018312) 4.3 mmol/L 3.5-5.0 CL (test code = 2188237185) 105 mmol/L 98-108 CO2 TOTAL (test code = 4305966533) 26 mmol/L 23-31 AGAP (test code = 6652023363) 2-16 BUN (test code = 8989607605) 11 mg/dL 7-23 GLUCOSE (test code = 1561903895) 95 mg/dL 70-110 CREATININE (test code = 2699242227) 0.70 mg/dL 0.50-1.04 TOTAL BILI (test code = 7543662270) 0.6 mg/dL 0.1-1.1 CALCIUM (test code = 7505941628) 8.9 mg/dL 8.6-10.6 T PROTEIN (test code = 9211679720) 7.7 g/dL 6.3-8.2 ALBUMIN (test code = 0698028805) 4.1 g/dL 3.5-5.0 ALK PHOS (test code = 9886365338) 79 U/L 34-122 ALTv (test code = 1742-6) 10 U/L 5-35 AST(SGOT) (test code = 2124633053) 22 U/L 13-40 eGFR (test code = 9569492047) mL/min/1.73m2 LYNDSAY (test code = LYNDSAY) Association [...] or urine or abnormalities in imaging tests). [facility], Ilsuy7235-04-96 16:34:14* Test Item Value Reference Range Interpretation Comme nts LIPASE (test code = 6470914132) 45 U/L 0-220 Lab Interpretation (test cod e = 68440-0) Normal [facility] with Xkanntunlais4992-47-77 16:21:12* Test Item Value Reference Range Interpretation Comme nts WBC (test code = 6690-2) See_Comment [Automated [employer]] The system which generated this result transmitted reference range: 4.30 - 11.10 10*3/?L. The reference range was not used to interpret this result as normal/abnormal. RBC (test code = 789-8) See_Comment [Automated [employer]] The system which generated this result transmitted [...] g/dL 31.6-35.1 L RDW-SD (test code = 06816-7) 54.4 fL 39.0-49.9 H RDW-CV (test code = 788-0) 18.3 % 12.0-15.5 H PLT (test code = 777-3) See_Comment H [Automated [employer]] The system which generated this result transmitted reference range: 166 - 358 10*3/?L. The reference range was not used to interpret this result as normal/abnormal. MPV (test code = 05519-8) 8.5 fL 9.5-12.9 L NRBC/100 WBC (test code = 9354778880) See_Comment [Automated me ssage] The system which generated this result transmitted reference range: 0.0 - 10.0 /100 WBCs. The reference range was not used to interpret this result as normal/abnormal. NRBC x10^3 (test code = 5408962489) <0.01 See_Comment [Automated messa ge] The system which generated this result transmitted reference range: 10*3/?L. The reference range was not used to interpret this result as normal/abnormal. GRAN MAT (NEUT) % (test code = 770-8) 78.3 % IMM GRAN % (test code = 7015110487) 0.40 % LYMPH % (test code = 736-9) 15.4 % MONO % (test code = 5905-5) 4.8 % EOS % (test code = 713-8) 0.1 % BASO % (test code = 706-2) 1.0 % GRAN MAT x10^3(ANC) (test code = 9073602106) 7.15 10*3/uL 1.88-7.09 H IMM GRAN x10^3 (test code = 3178834353) 0.04 10*3/uL 0.00-0.06 LYMPH x10^3 (test code = 731-0) 1.41 10*3/uL 1.32-3.29 MONO x10^3 (test code = 742-7) 0.44 10*3/uL 0.33-0.92 EOS x10^3 (test code = 711-2) <0.03 0.03-0.39 L BASO x10^3 (test code = 704-7) 0.09 10*3/uL 0.01-0.07 H Lab Interpretation (test code = 50573-2) Abnormal [facility] Notes Date/Time Note Provider Source 2023-09-11 11:34:02 OwY6D8rJXcPAFatnGHOQFOHmpGGmyyQ/d0RsA3 HycnxBGHxvg/AKnXsvgll9FK7j1686-85-84Y9 1:34:02 Chief ComplaintPatient presents withFollow-up [facility]ization[facility] BETO DonahueN 51352-9Awshb OhdpGN3775-96-59W67:34:35Nurse NoteTXT1.2.840.633017.1.13.131.2.7.2.7 04022|[id number] for patient bxoy94266-2Lpame NoteLNNARRATIVEFormatted C-CDA narrative [facility] [facility] [id number] 144-20-24B20:34:351.2.840.584056.1.72. 3.15|1.2.840.846400.1.13.131.2.7.2.727 [id number] [facility] 2023-08-12 16:08:34 ZdIUpmYuqxUCq65M7wtKjoFh/KyhrZq5p+T3SV bFyrmrTjBKIyg2dWLaD0KDNtyp4995-06-76E7 6:08:34 Bryan spoke to patient and patient decided to leave AMA.AMA form signed by patient and attached to paperwork.Patient in stable condition with AMA. IV line removed and patient was assisted onto wheelchair and moved to the lobby.Patient called her prior to leaving room and will be picking up patient. 41929-9Qqkspcdsj department JsjmQB0799-01-46U12:09:43Emergency department NoteTXT1.2.840.804708.1.13.104.2.7.2.7 66319|[id number] for patient brnd18284-1XyasFRAYTMEJSQSKbznzlifc C-CDA narrative [id number] [place] RNUT[address] StreetFjptTdjogb[id number] YWMMZAEPLBENMZLFKZSP0610-67-71V63:09:4 31.2.840.352239.1.72.3.15|1.2.840.1143 50.1.13.104.2.7.2.727879_[id number] Steph Dumont RN [facility] 2023-08-12 15:56:21 +/LtOfAfPbJ023/uzVojVKewS7J5oIZKrYzOKs F7CveblbvIrTmHypxiGyrMMUtJ8543-36-53I0 5:56:21 Patient requesting to talk to provider - provider aware.Patient refused tylenol as she said medication does not improve her condition and she does not want to throw it up.Patient also refusing blood draw at this time. 58054-3Gzweggbjm department VfnzLL0006-29-98S64:57:14[facility] department NoteTXT1.2.840.435632.1.13.104.2.7.2.7 11364|[id number] for patient qpql49148-6SotjRAFDTCCIQIIJaussmxfo C-CDA narrative text13 Dawson S[id number] HORALMUTCVKGPPTQPDDL5807-40-32R65:57:1 41.2.840.859188.1.72.3.15|1.2.840.[address]7.2.727879_[id number] [facility] 2023-08-12 14:50:00 uk8OoBPX9diMuNqiXiFk6UZHnRoIJu6d7F/mPV pf0HexO1XWCu8hD3aL2AF8Iqrk9416-06-63C6 4:50:00 Patient's name and verified with patient.No [...] [place] [address]-0Iieawqszq department PuiyWO7221-96-09C17:29:07[facility] department NoteTXT1.2.840.222619.1.13.104.2.7.2.7 35502|[id number] for patient yywe94585-1JvovHSMKUEQBGZKJaralujqr C-CDA narrative textUTMBLOVELACE MEDICAL CENTER - [address] Uogt[id number] CIBKRPEGPRSVXVWVJVKF5153-69-17M95:29:0 71.2.840.558868.1.72.3.15|1.2.840.[address]7.2.727879_[id number] [facility] 2023-08-12 14:17:22 ps5OJNl5jQ6lV1Ld3CA11PZnXWsi++4poz5ic7 aXO0CraG+jaHMnbgmBySCxOqrn7667-10-07I3 4:17:22 Patient had witnessed seizure like activity.DO Flor at bedside.Patient stopped seizure activity and had no postictal phase.Patient coherent, alert and oriented/answering all questions appropriately. 33861-8Viiepztng department WmvsJZ4857-15-13G54:18:15[facility] department NoteTXT1.2.840.683738.1.13.104.2.7.2.7 99391|[id number] for patient kctb28880-4GbjcODJOJEWUHVXVjyrlpbhk C-CDA narrative text[address] MgumF[id number] TRRDBHVZGWURVOVAXWTZ8751-73-29N14:18:1 51.2.840.573728.1.72.3.15|1.2.840.[address]2.727879_[id number] [facility] 2023-08-12 13:45:33 XhPXt9Kj1vSOYqxlAfx8QsJ82Cw9mCv/HjgJpP W+B+dk5xYH8k6cRz/MEk3YIHD99126-99-06D1 3:45:33 Patient here for chest pain that started approximately 1 hour ago. Patient had seizure like activity in the vehicle while attempting to get patient out of the car, patient had no post ictal phase. Patient c/o substernal chest pain and jaw pain. 16552-3Ugdjpspwj department Triage teheDZ8452-32-03Y90:46:59[facility] department Triage noteTXT1.2.840.940316.1.13.104.2.7.2.7 75593|[id number] for patient thdz72091-3Ganrgtwcl department NoteLNNARRATIVEFormatted C-CDA narrative [id number] S Cryer RNUT26 [address] [id number] FBADHRFEAGHHYDRIMMNW6427-81-23S01:46:5 91.2.840.449765.1.72.3.15|1.2.840.1143 50.1.13.104.2.7.2.727879_[id number] Jasvir Reaves RN 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 METABOLIC PANEL (48571) - AbnormalNA 140 135 - 145 mmol/LK [...] U/LAST(SGOT) 21 13 - 40 U/LeGFR 107.1 mL/min/1.86s6HWMBHG ACID WHOLE BLOOD - NormalLACTIC ACID 1.56 0.50 - 2.20 mmol/LURINALYSISTROPONIN IEKG:If EKG completed, see Procedure Note.Orders and Treatments:Orders Placed This EncounterProceduresCbc with DiffComp. Metabolic Panel (72939)UrinalysisLactic Acid Whole BloodTroponin IOrders Placed This EncounterMedicationslacosamide (VIMPAT) 100 mg in NaCl 0.9% (NS) 50 mL piggybackacetaminophen (TYLENOL) tablet 1,000 mgFirst Provider Eval:ED EventsDate/Time Event User Uzhidwpy41/24/24 1345 Medical Screening Begins BRIAN BRYAN --08/12/23 1345 First Provider Evaluation BRIAN BRYAN --ED COURSEED Course as of 08/12/23 1605Wed Aug 12 Lactic normal. Patient requesting to leave prior to treatment complete. Discussed risks of leaving. [PS]ED Course User Index[PS] Brian rByan DODiagnosis/Impression as of 08/12/23 1605SeizureChest pain, unspecified [...] on fileFollow-up:Contact information for follow-Yehuda Segovia MDSpecialty: PN-[facility] AND ZOBWH[address] [place] [phone]: [phone]-Emergency DepartmentSpecialty: Emergency Spezvjdx[address] [place] [address]Wvdgk: [phone]: If symptoms worsen as documented in the dischargeElectronically signed by:Brian Bryan DO08/12/23 1605Brian Bryan DO08/12/23 1605 16097-2Enqvbmlmv Emergency department DjhoFU5635-14-71M93:05:59Physician Emergency department NoteTXT1.2.840.460671.1.13.104.2.7.2.7 53324|[id number] for patient tdxf43032-6Pifelzgmp department NoteLNNARRATIVEFormatted C-CDA narrative text[address] Pt[id number] MDYNPTHGYMVODRPZRBOM8754-97-85I25:05:5 91.2.840.879411.1.72.3.15|1.2.840.[address]13[address]104.2.7.2.727879_[id number] [facility]
[2023-10-25 02:10] LABS: Absolute Basophils 0.1 K/uL (0-0.5); Absolute Eosinophils 0.1 K/uL (0-0.5); Absolute Lymphocytes (CBC) 2.2 K/uL (0.7-4.9); Absolute Monocytes 0.4 K/uL (0.1-1.3); Absolute Neutrophil 2.4 K/uL (1.8-8.0); Eosinophils % 1.7 % (0-4.4); Hematocrit 37.3 % (36.0-45.0); Hemoglobin 11.6 g/dL (12.0-15.0); Lymphocytes % 42.3 % (15.3-44.8); MCH 25.2 pg (27.0-35.0); MCHC 31.2 g/dL (32.0-36.0); MCV 80.9 fL (80-100); MPV 6.5 fL (7.6-11.3); Monocytes % 7.5 % (3.3-12.3); Neutrophils % 46.5 % (41.7-73.7); Nucleated Red Blood Cells % 0.1 % (0-0); Platelets 424 thou/uL (152-406); RBC Red Blood Cell Count 4.61 M/uL (3.86-4.86); Red Cell Distribution Width 20.3 % (12.1-15.2)
[2023-10-25 02:29] LABS: ALT/SGPT 16 U/L (13-56); AST/SGOT 8 U/L (15-37); Albumin 3.1 g/dL (3.4-5.0); Albumin/Globulin Ratio 0.8 (1.1-1.8); Alkaline Phosphatase 125 U/L (45-117); Anion Gap 11.3 mEq/L (5.0-15.0); BUN Blood Urea Nitrogen 7 mg/dL (7-18); Bicarbonate 23 mEq/L (21-32); Bilirubin Total 0.2 mg/dL (0.2-1.0); Globulin 4.1 g/dL (2.3-3.5); Glomerular Filtration Rate 107 ml/min (=/>90); Glucose Level 104 mg/dL (74-106); Magnesium 2.1 mg/dL (1.6-2.4); NT PRO-BNP 5536 pg/mL (<125); Potassium 3.3 mEq/L (3.5-5.1); Protein, Total 7.2 g/dL (6.4-8.2); Sodium Level 140 mEq/L (136-145); Troponin High Sensitivity 39.1 pg/mL (<58.9)
[2023-10-25 02:53] LABS: Bilirubin Direct < 0.1 mg/dL (0-0.2); Bilirubin Indirect, Calculated ND mg/dL (0.2-0.8)
[2023-10-25] MEDS ORDERED: NA CHLORIDE 0.9% 500 ML ONE (02:55)
[2023-10-25] MEDS ORDERED: ONDANSETRON 4 MG/2 ML VIAL ONE (02:55)
[2023-10-25] MEDS ORDERED: KETOROLAC 30 MG/ML INJ ONE (03:34)
[2023-10-25] MEDS ORDERED: DIVALPROEX DR 250 MG TAB PO ONE (04:02)
[2023-10-25] MEDS ORDERED: DIAZEPAM 5 MG TABLET ONE (04:03)
--- NOTE | 2023-10-25 04:40 | EDPHYS ---
Physician Documentation [facility] Name: Heather Coon Age: 53 yrs Sex: Female : 1970 Arrival Date: 10/25/2023 Time: 01:35 Bed 7 Private MD: ED Physician Gus Canela HPI: 10/24 02:09 This 53 yrs old Female presents to ER via EMS with complaints of Seizure. rt 02:09 Patient presents to the ED with reported seizure episodes. Patient has supposedly been rt off of her antiseizure medicines for 3 weeks. Patient states that she had 4 seizures today. Reports a cough, congestion. Denies other acute complaints at this time, symptoms are moderate in severity, no other aggravating or elevating factors.. 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: 02:10 LMP N/A - Hysterectomy, Not bm8 Historical: - Allergies: 02:07 fluoxetine; bm8 02:07 Green Tea; bm8 02:07 Keppra; not an allergy; bm8 - Home Meds: 02:07 Depakote Oral [Active]; Folic Acid Oral [Active]; Keppra Oral [Active]; Lasix Oral bm8 [Active]; lisinopril Oral [Active]; Metoprolol Tartrate Oral [Active]; - PMHx: 02:07 Anxiety; Arthritis; Bipolar disorder; Cancer-Cervical; Chronic obstructive lung bm8 disease; Chronic pain; Congestive heart failure; Depression; Diverticulitis; Herniated Back Disc; Hypertension; intestinal mass; Myocardial infarction; pt reports hx of seizures; stroke; Spastic Muscles; - PSHx: 02:07 back surgery; Cholecystectomy; cervical fusion; foot; Tonsillectomy; bm8 - Immunization history:: Adult Immunizations up to date. - Infectious Disease History:: Denies. - Social history:: Smoking status: Patient reports the use of cigarette tobacco products, smokes one pack cigarettes per day. - Family history:: not pertinent. ROS: 02:09 Constitutional: Negative for fever, chills, and weight loss, Cardiovascular: Negative rt for chest pain, palpitations, and edema, Abdomen/GI: Negative for abdominal pain, nausea, vomiting, diarrhea, and constipation, MS/Extremity: Negative for injury and deformity, Skin: Negative for injury, rash, and discoloration, Psych: Negative for depression, anxiety, suicide ideation, homicidal ideation, and hallucinations, 02:09 Respiratory: Positive for cough, wheezing, 02:09 Neuro: Positive for seizure activity, Negative for altered mental status, Exam: 02:09 Constitutional: This is a well developed, well nourished patient who is awake, alert, rt and in no acute distress. Head/Face: Normocephalic, atraumatic. Chest/axilla: Normal chest wall appearance and motion. Nontender with no deformity. No lesions are appreciated. Cardiovascular: Regular rate and rhythm with a normal S1 and S2. No gallops, murmurs, or rubs. Normal PMI, no JVD. No pulse deficits. Abdomen/GI: Soft, non-tender, with normal bowel sounds. No distension or tympany. No guarding or rebound. No evidence of tenderness throughout. Skin: Warm, dry with normal turgor. Normal color with no rashes, no lesions, and no evidence of cellulitis. MS/ Extremity: Pulses equal, no cyanosis. Neurovascular intact. Full, normal range of motion. Neuro: Awake and alert, GCS 15, oriented to person, place, time, and situation. Cranial nerves II-XII grossly intact. Motor strength 5/5 in all extremities. Sensory grossly intact. Cerebellar exam normal. Normal gait. Psych: Awake, alert, with orientation to person, place and time. Behavior, mood, and affect are within normal limits. 02:09 ECG was reviewed by the Attending Physician. 02:09 Respiratory: Wheezes heard on all lung ryan, no respiratory distress, Vital Signs: 01:36 BP 138 / 93; Pulse 134; Resp 19; Temp 99.1; Pulse Ox 99% on R/A; Weight 81.65 kg; bm8 Height 5 ft. 3 in. ; Pain 8/10; 02:12 BP 120 / 84; Pulse 118; Resp 19; Temp 99.1; Pulse Ox 100% on Nebulizer Mask; Pain 8/10; bm8 03:02 BP 124 / 90; Pulse 120; Resp 18; Temp 99.1; Pulse Ox 95% on R/A; Pain 7/10; bm8 05:01 BP 103 / 68; Pulse 111; Resp 20; Temp 99.1; Pulse Ox 97% on R/A; Pain 0/10; bm8 01:36 Body Mass Index 31.89 (81.65 kg, 160.02 cm) bm8 01:36 Pain Scale: Adult bm8 02:12 Pain Scale: Adult bm8 03:02 Pain Scale: Adult bm8 05:01 Pain Scale: Adult bm8 Drewsey Coma Score: 02:12 Eye Response: spontaneous(4). Motor Response: obeys commands(6). Verbal Response: bm8 oriented(5). Total: 15. MDM: 01:36 Patient medically screened. rt 05:43 Differential Diagnosis Seizure, subtherapeutic antiepileptic. Data reviewed: vital rt signs, nurses notes, lab test result(s), EKG, radiologic studies. Consideration of Admission/Observation Escalation of care including admission/observation considered. Patient was sinus tachycardia, per chart review, patient consistently has tachycardia only slightly worse than previously. Do not suspect pulmonary embolism. Patient is stable for outpatient care, no indications for admission at this time.. I considered the following discharge prescriptions or medication management in the emergency department Medications were administered in the Emergency Department. See MAR. Independent interpretation of the following test(s) in the Emergency Department X-Ray: My interpretation is No consolidation, pulmonary edema seen on interpretation of x-ray images. Care significantly affected by the following chronic conditions: Chronic Obstructive Pulmonary Disease. Counseling: I had a detailed discussion with the patient and/or guardian regarding the historical points, exam findings, and any diagnostic results supporting the discharge/admit diagnosis, lab results, radiology results, the need for outpatient follow up, to return to the emergency department if symptoms worsen or persist or if there are any questions or concerns that arise at home. Response to treatment: the patient's symptoms have markedly improved after treatment. 10/24 01:40 Order name: Basic Metabolic Panel; Complete Time: 02:53 rt 10/24 01:40 Order name: CBC with Diff; Complete Time: 02:53 rt 10/24 01:40 Order name: LFT's; Complete Time: 02:53 rt 10/24 01:40 Order name: Magnesium; Complete Time: 02:53 rt 10/24 01:40 Order name: NT PRO-BNP; Complete Time: 02:53 rt 10/24 01:40 Order name: Troponin HS; Complete Time: 02:53 rt 10/24 01:40 Order name: XRAY Chest (1 view) rt 10/24 01:40 Order name: EKG; Complete Time: 01:41 rt 10/24 01:40 Order name: Cardiac monitoring; Complete Time: : rt 10/24 01:40 Order name: EKG - Nurse/Tech; Complete Time: rt 10/24 01:40 Order name: IV Saline Lock; Complete Time: 02: rt 10/24 01:40 Order name: Labs collected and sent; Complete Time: 02: rt 10/24 01:40 Order name: O2 Per Protocol; Complete Time: rt 10/24 01:40 Order name: O2 Sat Monitoring; Complete Time: rt EC:09 Rate is 132 beats/min. Rhythm is regular, Sinus tachycardia with No ectopy. QRS [place] is rt Normal. DE interval is normal. QRS interval is normal. QT interval is normal. No Q waves. No ST changes noted. Administered Medications: Drug: DuoNeb Nebulize (3:1) (2.5 mg - 0.5 mg) 3 ml Nebulizer once Route: Nebulizer; [facility] 02:16 Follow up: Response: No adverse reaction; Wheezing diminished bm8 03:02 Drug: Ondansetron IVP 4 mg IVP once; over 2 minutes Route: IVP; Site: left forearm; bm8 03:37 Follow up: Response: No adverse reaction bm8 03:02 Drug: NS 0.9% IV 500 ml IV at bolus once Route: IV; Rate: bolus; Site: left forearm; bm8 03:37 Follow up: Response: No adverse reaction; IV Status: Completed infusion; IV Intake: bm8 500ml 03:37 Drug: Ketorolac IVP 15 mg IVP once Route: IVP; Site: left forearm; bm8 04:00 Follow up: Response: No adverse reaction; Pain is decreased bm8 04:15 Drug: Valproic Acid PO 500 mg PO once Route: PO; bm8 05:09 Follow up: Response: No adverse reaction km8 04:15 Drug: Diazepam PO 10 mg PO once Route: PO; bm8 05:09 Follow up: Response: No adverse reaction km8 Disposition Summary: 10/25/23 04:39 Discharge Ordered Notes: Location: Home rt Problem: new rt Symptoms: have improved rt Condition: Stable rt Diagnosis - Other seizures rt Followup: rt - With: Private Physician - When: 2 - 3 days - Reason: Discharge Instructions: - Discharge Summary Sheet rt - Seizure, Adult rt Forms: - Medication Reconciliation Form rt - Thank You Letter rt - Antibiotic Education rt - Prescription Opioid Use rt - Patient Portal Instructions rt - Leadership Thank You Letter rt Prescriptions: - Depakote 500 mg Oral Tablet - take 1 tablet ORAL route every 12 hours; 60 tablet; Refills: 0, Product rt Selection Permitted Signatures: Dispatcher [employer] EDMS Fauzia Nugent RN RN jw7 Gus Canela MD MD rt Donnell Agrawal RN RN bm8 Merlyn Salinas RN km8 Corrections: (The following items were deleted from the chart) 01:41 01:40 BASIC METABOLIC PANEL+C.LAB.BRZ ordered. EDMS EDMS 01:41 01:40 CBC+H.LAB.BRZ ordered. EDMS EDMS 01:41 01:40 HEPATIC FUNCTION+C.LAB.BRZ ordered. EDMS EDMS 01:41 01:40 MAGNESIUM+C.LAB.BRZ ordered. EDMS EDMS 01:41 01:40 PROBNP+C.LAB.BRZ ordered. EDMS EDMS 01:41 01:40 Troponin High Sensitivity+C.LAB.BRZ ordered. EDMS EDMS
--- NOTE | 2023-10-25 04:40 | ER ---
Nurse's Notes [facility] Name: Heather Coon Age: 53 yrs Sex: Female : 1970 Arrival Date: 10/25/2023 Time: 01:35 Bed 7 Private MD: Diagnosis: Other seizures Presentation: 10/24 01:36 Chief complaint: Patient states: I have a hx of seizures and i had some today. bm8 Coronavirus screen: Vaccine status: Patient reports receiving the 2nd dose of the covid vaccine. Client denies travel out of the [place] in the last 14 days. At this time, the client does not indicate any symptoms associated with coronavirus-19. Ebola Screen: Patient negative for fever greater than or equal to 101.5 degrees Fahrenheit, and additional compatible Ebola Virus Disease symptoms Patient denies exposure to infectious person. Patient denies travel to an Ebola-affected area in the 21 days before illness onset. No symptoms or risks identified at this time. Initial Sepsis Screen: Does the patient meet any 2 criteria? HR > 90 bpm. Initial Sepsis Screen: Does the patient meet any 2 criteria? No. Patient's initial sepsis screen is negative. Does the patient have a suspected source of infection? No. Patient's initial sepsis screen is negative. Risk Assessment: Do you want to hurt yourself or someone else? Patient reports no desire to harm self or others. Onset of symptoms was October 24, 2023 at 18:00. 01:36 Method Of Arrival: EMS: [facility] 8 01:36 Acuity: ANDER 3 bm8 Triage Assessment: 01:36 General: Appears in no apparent distress. comfortable, Behavior is calm, cooperative, bm8 appropriate for age. Pain: Complains of pain in back Pain does not radiate. Pain currently is 8 out of 10 on a pain scale. Quality of pain is described as aching, crampy. EENT: No deficits noted. No signs and/or symptoms were reported regarding the EENT system. 02:10 Neuro: No deficits noted. Level of Consciousness is awake, alert, obeys commands, bm8 Oriented to person, place, time, situation, Appropriate for age Reports having two witnessed seizures at home and then two on the ambulance ride. Cardiovascular: Denies chest pain, lightheadedness, shortness of breath, Heart tones S1 S2 present Capillary refill < 3 seconds Patient's skin is warm and dry. Rhythm is sinus tachycardia. Respiratory: Airway is patent Respiratory effort is even, unlabored, Respiratory pattern is regular, Breath sounds with wheezes bilaterally. the patient has moderate shortness of breath. GI: No deficits noted. No signs and/or symptoms were reported involving the gastrointestinal system. : No deficits noted. No signs and/or symptoms were reported regarding the genitourinary system. Derm: No deficits noted. No signs and/or symptoms reported regarding the dermatologic system. Musculoskeletal: Reports pain in back. BLOCKER HAND: 02:10 LMP N/A - Hysterectomy, Not bm8 Historical: - Allergies: 02:07 fluoxetine; bm8 02:07 Green Tea; bm8 02:07 Keppra; not an allergy; bm8 - Home Meds: 02:07 Depakote Oral [Active]; Folic Acid Oral [Active]; Keppra Oral [Active]; Lasix Oral bm8 [Active]; lisinopril Oral [Active]; Metoprolol Tartrate Oral [Active]; - PMHx: 02:07 Anxiety; Arthritis; Bipolar disorder; Cancer-Cervical; Chronic obstructive lung bm8 disease; Chronic pain; Congestive heart failure; Depression; Diverticulitis; Herniated Back Disc; Hypertension; intestinal mass; Myocardial infarction; pt reports hx of seizures; stroke; Spastic Muscles; - PSHx: 02:07 back surgery; Cholecystectomy; cervical fusion; foot; Tonsillectomy; bm8 - Immunization history:: Adult Immunizations up to date. - Infectious Disease History:: Denies. - Social history:: Smoking status: Patient reports the use of cigarette tobacco products, smokes one pack cigarettes per day. - Family history:: not pertinent. Screenin:12 [facility] ED Fall Risk Assessment (Adult) History of falling in the last 3 months, bm8 including since admission Yes- fall prone (multiple falls) (3 pts) Confusion or Disorientation No (0 pts) Intoxicated or Sedated Yes (3 pts) Impaired Gait Yes (1 pt) Mobility Assist Device Used Yes (1 pt) Altered Elimination No (0 pt) Score/Fall Risk Level 3 or more points = High Risk Oriented to surroundings, Maintained a safe environment, Educated pt \T\ family on fall prevention, incl call for assistance when getting out of bed, Assessed \T\ reinforced patient's understanding of fall precautions, Hourly rounding (assess needs \T\ fall precautionary measures) done. Abuse screen: Denies threats or abuse. Nutritional screening: No deficits noted. Tuberculosis screening: No symptoms or risk factors identified. Assessment: 02:12 Reassessment: see triage note. bm8 03:02 Neuro: No deficits noted. Level of Consciousness is awake, alert, obeys commands, bm8 Oriented to person, place, time, situation, Appropriate for age. Cardiovascular: Heart tones S1 S2 present Capillary refill < 3 seconds Patient's skin is warm and dry. Rhythm is sinus tachycardia. Respiratory: Airway is patent Respiratory effort is even, unlabored, Respiratory pattern is regular, symmetrical, Breath sounds with wheezes bilaterally. improved from time of arrival the patient has mild shortness of breath. GI: No deficits noted. No signs and/or symptoms were reported involving the gastrointestinal system. : No deficits noted. No signs and/or symptoms were reported regarding the genitourinary system. EENT: No deficits noted. No signs and/or symptoms were reported regarding the EENT system. 05:01 Reassessment: Patient appears in no apparent distress at this time. Patient and/or bm8 family updated on plan of care and expected duration. Pain level reassessed. Patient is alert, oriented x 3, equal unlabored respirations, skin warm/dry/pink. Patient denies pain at this time. Patient states feeling better. Patient states symptoms have improved. Respiratory: Airway is patent Respiratory effort is even, unlabored, Respiratory pattern is regular, symmetrical, Breath sounds are clear. Vital Signs: 01:36 BP 138 / 93; Pulse 134; Resp 19; Temp 99.1; Pulse Ox 99% on R/A; Weight 81.65 kg; bm8 Height 5 ft. 3 in. ; Pain 8/10; 02:12 BP 120 / 84; Pulse 118; Resp 19; Temp 99.1; Pulse Ox 100% on Nebulizer Mask; Pain 8/10; bm8 03:02 BP 124 / 90; Pulse 120; Resp 18; Temp 99.1; Pulse Ox 95% on R/A; Pain 7/10; bm8 05:01 BP 103 / 68; Pulse 111; Resp 20; Temp 99.1; Pulse Ox 97% on R/A; Pain 0/10; bm8 01:36 Body Mass Index 31.89 (81.65 kg, 160.02 cm) bm8 01:36 Pain Scale: Adult bm8 02:12 Pain Scale: Adult bm8 03:02 Pain Scale: Adult bm8 05:01 Pain Scale: Adult bm8 Nicole Coma Score: 02:12 Eye Response: spontaneous(4). Motor Response: obeys commands(6). Verbal Response: bm8 oriented(5). Total: 15. ED Course: 01:36 Patient arrived in ED. km8 01:36 Gus Canela MD is Attending Physician. rt 02:03 Donnell Agrawal, RN is Primary Nurse. bm8 02:03 Basic Metabolic Panel Sent. bm8 02:03 CBC with Diff Sent. bm8 02:03 LFT's Sent. bm8 02:03 Magnesium Sent. bm8 02:03 NT PRO-BNP Sent. bm8 02:03 Troponin HS Sent. bm8 02:07 Triage completed. bm8 02:07 XRAY Chest (1 view) In Process Unspecified. EDMS 02:10 Arm band placed on right wrist. Patient placed in an exam room, on a stretcher, on 8 gambling monitor, on pulse oximetry. EKG completed in triage. Results shown to MD. EKG done per protocol. Performed by ED Staff. Shown to ED physician. Labs ordered per protocol. Drawn by ED staff. 02:12 No provider procedures requiring assistance completed. Missed attempt(s): 20 gauge bm8 Bleeding controlled, band aid applied, catheter tip intact. 02:12 Initial lab(s) drawn, by dc, sent to lab. EKG done, by ED staff, reviewed by Gus Canela MD X-ray(s) taken. Inserted Accessed peripheral vein via ultrasound, utilizing dynamic ultrasound technique Blood collected. using 20G Nexia IV catheter Clean \T\ dry. Dressing intact. Good blood return. Flushes easily. Oxygen administered via a nebulizer mask. 02:12 Patient has correct armband on for positive identification. Bed in low position. Call [facility] light in reach. Side rails up X 1. Provided Education on:. Client placed on continuous cardiac and pulse oximetry monitoring. NIBP monitoring applied. vehicle monitor technician on. Pulse ox on. NIBP on. Door closed. Noise minimized. Visitors limited. Lights dimmed. Verbal reassurance given. 03:02 placed pure wic for urinary relief. bm8 05:01 IV discontinued, intact, bleeding controlled, No redness/swelling at site. Pressure bm8 dressing applied. Administered Medications: 01:46 Drug: DuoNeb Nebulize (3:1) (2.5 mg - 0.5 mg) 3 ml Nebulizer once Route: Nebulizer; jw7 02:16 Follow up: Response: No adverse reaction; Wheezing diminished bm8 03:02 Drug: Ondansetron IVP 4 mg IVP once; over 2 minutes Route: IVP; Site: left forearm; bm8 03:37 Follow up: Response: No adverse reaction bm8 03:02 Drug: NS 0.9% IV 500 ml IV at bolus once Route: IV; Rate: bolus; Site: left forearm; bm8 03:37 Follow up: Response: No adverse reaction; IV Status: Completed infusion; IV Intake: bm8 500ml 03:37 Drug: Ketorolac IVP 15 mg IVP once Route: IVP; Site: left forearm; bm8 04:00 Follow up: Response: No adverse reaction; Pain is decreased bm8 04:15 Drug: Valproic Acid PO 500 mg PO once Route: PO; bm8 05:09 Follow up: Response: No adverse reaction km8 04:15 Drug: Diazepam PO 10 mg PO once Route: PO; bm8 05:09 Follow up: Response: No adverse reaction km8 Medication: 02:12 VIS not applicable for this client. bm8 Intake: 03:37 IV: 500ml; Total: 500ml. bm8 Outcome: 04:39 Discharge ordered by MD. rt 05:01 Discharged to home via wheelchair, bm8 05:01 Condition: stable 05:01 Discharge instructions given to patient, family, Instructed on discharge instructions, follow up and referral plans. medication usage, safety practices, Demonstrated understanding of instructions, follow-up care, medications, Prescriptions given X 1, 05:07 Discharged to home via wheelchair, with significant other, km8 05:07 Condition: good 05:07 Discharge instructions given to patient, significant other, Instructed on discharge instructions, follow up and referral plans. medication usage, Demonstrated understanding of instructions, follow-up care, medications, Prescriptions given X 1, 05:08 Patient left the ED. km8 Signatures: Dispatcher [facility] EDMT Fauzia Nugent RN RN jw7 Gus Canela MD MD rt Merlyn Salinas, RN RN km8 Donnell Agrawal, RN RN bm8
[2023-10-25 10:33] VITALS: BP 103/68; TEMP 99.1; O2SAT 97
--- NOTE | 2023-10-26 10:37 | RAD REPORT ---
EXAM DESCRIPTION: RAD - Chest Single View - 10/25/2023 2:05 am CLINICAL HISTORY: The patient is 53 years old and is Female; COPD TECHNIQUE: Frontal view of the chest. COMPARISON: No relevant prior studies available. FINDINGS: LUNGS: Calcified granuloma within the left upper lobe is noted. No consolidation. PLEURAL SPACE: Unremarkable. No pneumothorax. HEART: Unremarkable. No cardiomegaly. MEDIASTINUM: Unremarkable. Normal mediastinal contour. BONES/JOINTS: Postsurgical changes cervical spine is present. No acute fracture. UPPER ABDOMEN: Unremarkable as visualized. IMPRESSION: No acute cardiopulmonary process. Electronically signed by: Brooklynn Bassett MD 10/25/2023 02:22 AM CDT Due to temporary technical issues with the PACS/Fluency reporting system, reports are being signed by the in house radiologist without review as a courtesy to ensure prompt reporting. The interpreting r adiologist is fully responsible for the content of the report.
--- NOTE | 2023-10-26 12:44 | EKG ---
Test Date: 2023-10-25 Test Time: 01:41:03 Calculation Reviewer: KUSHAL MEASUREMENT RESULTS: Intervals: Rate: 132 OH: 132 QRSD: 88 QT: 300 QTc: 444 [place]: P: 68 OH: 132 QRS: 126 T: 39 INTERPRETIVE STATEMENTS: Sinus tachycardia Right atrial enlargement Lateral infarct, age undetermined Abnormal ECG Compared to ECG 10/06/2023 19:14:04 Myocardial infarct finding now present Electronically Signed On 10-26-23 12:41:08 CDT by Saad Leavitt
== END 2023-10-25 05:08 | disposition home or self-care (01) ==
LOC: ER 01:35
DX: G40.89 Other seizures (principal); I10 Essential (primary) hypertension; I50.9 Heart failure, unspecified; J44.9 Chronic obstructive pulmonary disease, unspecified; F17.210 Nicotine dependence, cigarettes, uncomplicated; Z88.8 Allergy status to other drugs, medicaments and biological substances; Z91.018 Allergy to other foods
CPT/HCPCS: 96361; 93005; 85025; 80048; 36415; 83735; 80076; 84484; 83880; 71045; 94640; 96375; 96374; 99285; J7613; J7644; J2405; J7040

== ENCOUNTER 2023-10-31 19:37 | Emergency (ER) | payer OTHER ==
--- OUTSIDE RECORDS SUMMARY | 2023-10-31 19:57 | XMS REPORT | Continuity of Care Document ---
Author Name Unknown Address [address] [facility]. [address] [place] [address] [facility] Address [address] [facility] [address] [place] [address] Care Team Providers Care Fill Manager Name Role Phone Aneta Silva Primary Care Physician [phone] PANKAJ OBREGON Attending Clinician Un available AYDEE GO Attending Clinician Unavailable CRAA BURGESS Attending Clinician Unavailab ADAM Cabrera Attending Clinician Unavailable THOMAS LOZOYA Attending Clinician Nina MARIAH Quiroga Attending Clinician Unavailable PREZAS, GUSTAVO Attending Clinician Unavailable MYLA MIJARES Attending Clinician Unavailable EFRA BABCOCK Attending Clinician Un available SIDDHARTH STANFORD Attending Clinician Unavailекатерина GARRETT MD Attending Clinician Unavailab SHY Kelly Attending Clinician Unavailable SARAI JULES Attending Clinician Unavaila TIFFANY Rivera Attending Clinician Unavaila YONATAN Juarez Attending Clinician Unava radha Loyola MD, [place] Dixon Attending Clinician Nina lisa Obregon MD, Pankaj Bernal Attending Clinician Selin Fry DO Attending Clinician [phone] Bud ELIZONDO, Selin Attending Clinician [phone] SELIN FERRER Attending Clinician Unavailable JUANY GREEN Attending Clinician Unavailable DEMETRIUS TOBAR Attending Clinician Unavailab KETAN Armenta Attending Clinician Unavail able Kael SUPER[employer], Ketan Sanders Attending Clinician [phone] BRIAN BRYAN Attending Clinician Unavailable Brian Bryan DO Attending Clinician [phone] Jenifer ELIZONDO, Cara Hamilton Attending Clinician [phone] Aydee Go MD Attending Clinician [phone] System, Provider Not In Attending Clinician Unav ailable Dallas Gomez Attending Clinician [phone] Adam Garcia MD Attending Clinician [phone] Mercedez ELIZONDO, Harry Attending Clinician [phone] Rocael ELIZONDO, Antwon Mccrary Attending Clinician + [phone] Yue Bui MD Attending Clinician [phone] Connie Davey MD Attending Clinician [phone] Jasen ELIZONDO, Mariah Attending Clinician [phone] Valerio ELIZONDO, Thomas Hopkins Attending Clinician CONNIE DAVEY Attending Clinician UnavailAlfonso Oh Attending Clinician Unavailable Jenny PAC, K Lorelei Attending Clinician [phone] RITCHIE WARREN Attending Clinician Unavailable Briana ELIZONDO, Ritchie Stoner Attending Clinician [phone] Rk CAMPOS, Shy Stoner Attending Clinician [phone] Reji ELIZONDO, Halima Hummel Attending Clinician [phone] Lucho ELIZONDO, Jen Conde Attending Clinician [phone] Roxi ELIZONDO, Parrish Reyez Attending Clinici an ROXI, PARRISH CR Attending Clinician Unavaila LORENZA Mariscal Attending Clinician Unavailable Alcon ELIZONDO, Sav Attending Clinician [phone] Essence ELIZONDO, Lorenza Attending Clinician [phone] Corey DUMONT, Maria Teresa Attending Clinician [phone] CHANTEL BOJORQUEZ Attending Clinician CHANTEL Kelly Attending Clinician Jack Ibrahim MD, Brandyn Otoole Attending Clinician [phone] SELINA MARTINES Attending Clinician Unavailable Sapna Vargas DO Attending Clinician + [phone] Tyrel ELIZONDO, Glory Katz Attending Clinician + Selina Martines MD Attending Clinician [phone] Vaccine, [place] Pedi Attending Clinician U Jose Titus MD Attending Clinician [phone] JOSE PAK Attending Clinician Unavailable NICHELLE VIRK Attending Clinician Unavaila Nichelle Lakhani F Attending Clinician [phone] Doctor Unassigned, [place] Attending Clinician U chelsi Nava RN, Miky Attending Clinician Unavailab Fabrice Jarrett Attending Clinician [phone] Lydia Eaton Attending Clinician [phone] Unknown, Attending Attending Clinician Unavailab le UNKNOWN, ATTENDING Attending Clinician Unavailab Anali Berg S Attending Clinician [phone] Yehuda Arcos MD Attending Clinician PANKAJ OBREGON Admitting Clinician Un available CARA BURGESS Admitting Clinician Unavailab ADAM Cabrera Admitting Clinician Unavailable MARIAH ALDRIDGE Admitting Clinician Unavailable CONNIE DAVEY Admitting Clinician UnavailAlfonso Oh Admitting Clinician Unavailable RITCHIE WARREN Admitting Clinician Unavailable JEN GELLER Admitting Clinician Unavaila LORENZA Mariscal Admitting Clinician Unavailable Lorenza Lowry MD Admitting Clinician [phone] BRANDYN IBRAHIM Admitting Clinician Unavailable Brandyn Ibrahim MD Admitting Clinician [phone] GLORY ESTEVES Admitting Clinician Unav ailable NICHELLE VIRK Admitting Clinician Unavaila ble Payers Payer Name Policy Type Policy Number Effective Date Expirati on Date Source [facility] [id number] 2023 00:00:00 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 [id number] 2023 00:00:00 [facility] [employer] FOCUS 9 [id number] 2023 00:00:00 [place] [id number] 2023 00:00:00 MEDICAID PENDING PENDING 2022 00:00:00 [...] leg weakness Disease Active 2022-07 00:00: 00 [facility] Bilateral leg weakness Bilateral leg weakness Disease Active 2022-07 00:00: 00 [facility] Pneumonia Pneumonia Disease Active 2022-07 00:00: 00 [facility] Cavitary lesion of lung Cavitary lesion of lung Disease Active 2022-07 00:00: 00 [facility] Cervical myelopathy Cervical myelopathy Disease Recurre mae 2022-07 00:00: 00 [facility] Cervical disc disorder Cervical disc disorder Disease Active 2022-07 00:00: 00 [facility] Cord compressio n Cord compressio n Disease Recurre mae 2023-0 9-11 00:00: 00 [facility] Cauda equina compressio n Cauda equina compressio n Disease Active 9-11 00:00: 00 [facility] Seizure Seizure Disease Recurre nce 1-14 00:00: 00 [facility] Cardiomyop athy Cardiomyop athy Disease Active 1-13 00:00: 00 [facility] NSVT (nonsustai keisha ventricula r tachycardi a) NSVT (nonsustai keisha ventricula r tachycardi a) Disease Active 1- 00:00: 00 [facility] Chest pain, unspecifie d type Chest pain, unspecifie d type Disease Active 07-31 00:00: 00 [facility] Elevated brain natriureti c peptide (BNP) level Elevated brain natriureti c peptide (BNP) level Disease Active 07-31 00:00: 00 [facility] Coronary artery disease involving [place] coronary artery of [place] heart without angina pectoris Coronary artery disease involving [place] coronary artery of [place] heart without angina pectoris Disease Active 07-31 00:00: 00 [facility] Snores Snores Disease Active 07-31 00:00: 00 [facility] Cigarette smoker Cigarette smoker Disease Active 07-31 00:00: 00 [facility] Primary hypertensi on Primary hypertensi on Disease Active 07-31 00:00: 00 [facility] Other hyperlipid emia Other hyperlipid emia Disease Active 07-31 00:00: 00 [facility] Coronary artery disease involving [place] coronary artery of [place] heart without angina pectoris Coronary artery disease involving [place] coronary artery of [place] heart without angina pectoris Disease Active 12 00:00: 00 [facility] Chronic bilateral low back pain with bilateral sciatica Chronic bilateral low back pain with bilateral sciatica Disease Active 2021-07 0-17 00:00: 00 [facility] 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 Disease Active 04-15 00:00: 00 [facility] Neuroforam inal stenosis of cervical spine Neuroforam inal stenosis of cervical spine Disease Active 04-15 00:00: 00 [facility] Stroke-lik e symptoms Stroke-lik e symptoms Disease Active 04-13 00:00: 00 [facility] Bipolar disorder, in partial remission, most recent episode manic Bipolar disorder, in partial remission, most recent episode manic Disease Active 09-27 00:00: 00 [facility] Neuroforam inal stenosis of lumbar spine Neuroforam inal stenosis of lumbar spine Disease Active 09-27 00:00: 00 [facility] Bilateral acute otitis media, recurrence not specified, unspecifie d otitis media type Bilateral acute otitis media, recurrence not specified, unspecifie d otitis media type Disease Active 09-27 00:00: 00 [facility] Lumbar spinal stenosis Lumbar spinal stenosis Disease Active 09-27 00:00: 00 [facility] Right-side d low back pain with sciatica, sciatica laterality unspecifie d Right-side d low back pain with sciatica, sciatica laterality unspecifie d Disease Active 09-27 00:00: 00 [facility] Generalize d anxiety disorder Generalize d anxiety disorder Disease Active 09-27 00:00: 00 [facility] Agoraphobi a Agoraphobi a Disease Active 09-27 00:00: 00 [facility] Bipolar disorder, in partial remission, most recent episode manic Bipolar disorder, in partial remission, most recent episode manic Disease Active 09-27 00:00: 00 [facility] Obsessive compulsive disorder Obsessive compulsive disorder Disease Active 09-27 00:00: 00 [facility] Breast mass, left Breast mass, left Disease Active 09-17 00:00: 00 [facility] Anxiety Anxiety Disease Active 09-17 00:00: 00 [facility] Lower back pain Lower back pain Disease Active 09-17 00:00: 00 [facility] High blood pressure High blood pressure Disease Active 09-17 00:00: 00 [facility] COPD (chronic obstructiv e pulmonary disease) COPD (chronic obstructiv e pulmonary disease) Disease Active 09-17 00:00: 00 [facility] Obesity Obesity Disease Active 09-17 00:00: 00 [facility] Allergies, Adverse Reactions, Alerts Allergy Name Allergy Type Status Severity Reaction(s) Onset Date Inactive Date Treating Clinician Comments Source FLUOXETI NE Allergy Active 03-29 00:00: 00 [facility] GREEN TEA Allergy Active High Other 03-29 00:00: 00 [facility] LEVETIRA CETAM Allergy Active High N\\T\\V 03-29 00:00: 00 [facility] Fluoxeti ne Propensi ty to adverse reaction s Active 03-29 00:00: 00 [facility] Green Tea Propensi ty to adverse reaction s Active 03-29 00:00: 00 Seizure like activity [facility] Levetira cetam Propensi ty to adverse reaction s Active Nausea And Vomiting 03-29 00:00: 00 Intensifi es seizure [facility] Green Tea Drug Allergy Active Other (See Comments) 03-29 00:00: 00 Seizure like activity [facility] Levetira cetam Drug Allergy Active Nausea And Vomiting 03-29 00:00: 00 Intensifi es seizure [facility] Levetira cetam Propensi ty to adverse reaction s Active Other 11-17 00:00: 00 Intensifi es seizure Makes seizures worse Makes seizures worse Intensifi es seizure Cynthia Seybold - Externa l LEVETIRA CETAM DRUG INGREDI Active Other-Cmnt 11-17 00:00: 00 [facility] Levetira cetam Propensi ty to adverse reaction s Active Other - See comments 11-17 00:00: 00 Makes seizures worse [facility] Green Tea Propensi ty to adverse reaction s Active 08-02 00:00: 00 [facility] GREEN TEA Allergy Active 08-02 00:00: 00 [facility] FLUOXETI NE Allergy Active Med Rash 08-02 00:00: 00 [facility] Fluoxeti ne Propensi ty to adverse reaction s Active Rash 08-02 00:00: 00 Cynthia Seybold - Externa l Fluoxeti ne Propensi ty to adverse reaction s Active Unknown - See comments 03-25 00:00: 00 [facility] FLUOXETI NE DRUG INGREDI Active Unknown-Cmnt 03-25 00:00: 00 [facility] Diclofen ac Propensi ty to adverse reaction s Active Anxiety 11-20 00:00: 00 Cynthia Seybold - Externa l DICLOFEN AC DRUG INGREDI Active HYPERTENSION 11-20 00:00: 00 [facility] Green Tea Propensi ty to adverse reaction s Active Anxiety 08-10 00:00: 00 Seizure like activity Seizures Seizures Seizure like activity Cynthia Bedoyaold - Externa l GREEN TEA DRUG INGREDI Active Med Other-Cmnt 08-10 00:00: 00 [facility] Green Tea Propensi ty to adverse reaction s to drug Active Other - See comments 08-10 00:00: 00 Seizures [facility] FLUOXETI NE HCL DRUG INGREDI Active Hives 03-19 00:00: 00 [facility] Fluoxeti ne Hcl Propensi ty to adverse reaction s Active Hives 03-19 00:00: 00 [facility] Family History Family Member Diagnosis Comments Start Date Stop Date Sourc e Natural mother Alcohol abuse C [facility] Natural mother Cancer [facility] Natural mother Diabetes [facility] Natural mother Heart disease C [facility] Natural mother Hyperlipidemia [facility] Natural mother Kidney disease [facility] Natural mother Stroke [facility] Natural mother Alcohol abuse C [facility] Natural mother Stroke [facility] Paternal uncle Diabetes [facility] Social History Social Habit Start Date Stop Date Quantity Comments Source History SDOH Social Connections Get Together [facility] History SDOH Social Connections [facility] History SDOH Social Connections Membership [facility] History SDOH Social Connections Meetings [facility] Sexual orientation Alfonso Garcia - External History of tobacco use Cigarette Smoker Cynthia boyd - External History SDOH Alcohol Frequency [facility] History SDOH Alcohol Std Drinks [facility] History SDOH Alcohol Binge [facility] History SDOH Housing Homeless Last Year [facility] Tobacco use and exposure 2023-09-30 00:00:00 2023-09-30 [...] (event) 2023-05-18 00:00:00 2023-05-28 07:28:00 Not sure [facility] History SDOH Housing Unable to Pay - In the last 12 months, was there a time when you were not able to pay the mortgage or rent on time? 2023-05-26 00:00:00 2023-05-26 00:00:00 Yes [facility] History SDOH Housing Places Lived 2023-03-30 00:00:00 2023-03-30 00:00:00 1 [facility] Alcohol Comment 2023-03-29 00:00:00 2023-03-29 00:00:00 2x a week [facility] History SDOH Social Connections Phone 2022-08-01 00:00:00 2022-08-01 00:00:00 5 [facility] History SDOH Social Connections Living 2022-08-01 00:00:00 2022-08-01 00:00:00 5 [facility] History SDOH Physical Activity DPW 2022-08-01 00:00:00 2022-08-01 00:00:00 0 [facility] History SDOH Physical Activity MPS 2022-08-01 00:00:00 2022-08-01 00:00:00 0 [facility] History SDOH Financial 2022-08-01 00:00:00 2022-08-01 00:00:00 3 [facility] History SDOH Food Worry 2022-08-01 00:00:00 2022-08-01 00:00:00 1 [facility] History SDOH Food Scarcity 2022-08-01 00:00:00 2022-08-01 00:00:00 1 [facility] History SDOH Transport Med 2022-08-01 00:00:00 2022-08-01 00:00:00 2 [facility] History SDOH Transport Non-Med 2022-08-01 00:00:00 2022-08-01 00:00:00 2 [facility] Sex Assigned At 1970 00:00:00 1970 00:00:00 Cynthia Guillen Smoking Status Start Date Stop Date Source Smokes tobacco daily 2023-09-30 00:00:00 Cynthia Guillen Never smoked tobacco Cynthia Guillen Ex-smoker 2023-05-26 00:00:00 2023-05-26 00:00:00 [facility] Medications Ordered Medication Name Filled Medication Name Start Date Stop Date Current Medication? Ordering Clinician Indication Dosage Frequency Signature (SIG) Comments Components Source Metformin HCl 500 MG oral Tablet 09-29 14:28: 11 Yes 500mg Take 1 tablet (500 mg total) by mouth daily (with breakfast) . Cynthia gonzalez Ibuprofen (MOTRIN) 200 MG oral Tablet 09-29 14:27: 32 09-29 00:00 :00 No 200mg Q.[id number] 3D Take 1 tablet (200 mg total) by mouth every 8 hours as needed for pain. Cynthia gonzalez Fluticasone -Umeclidin- Vilant (Trelegy Ellipta) 100-62.5-25 MCG/ACT inhalation AEROSOL POWDER, BREATH ACTIVATED 09-29 00:00: 00 Yes [id number] 1{puff} Inhale 1 puff into the lungs daily. Cynthia gonzalez Carvedilol 12.5 MG oral Tablet 09-29 00:00: 00 Yes [id number] 12.5mg Take 1 tablet (12.5 mg total) by mouth in the morning and 1 tablet (12.5 mg total) in the evening. Take with meals. Cynthia gonzalez Duloxetine HCl [address] Particles 09-29 00:00: 00 Yes [id number] 20mg Take 1 capsule (20 mg total) by mouth daily. Cynthia gonzalez Acetaminoph en-Codeine (TYLENOL/CO DEINE #3) 300-30 MG oral Tablet 09-29 00:00: 00 Yes [id number] 1{tbl} Q.25D Take 1 tablet by mouth every 6 hours as needed for pain. Cynthia gonzalez Clonazepam 1 MG oral Tablet 09-29 00:00: 00 Yes [id number] 1mg QD Take 1 tablet (1 mg [...] MG oral Tablet 09-11 00:00: 00 Yes [id number] 15mg QD Take 1 tablet (15 mg total) by mouth nightly as needed. Cynthia gonzalez Acetaminoph en-Codeine (TYLENOL/CO DEINE #3) 300-30 MG oral Tablet 09-11 00:00: 00 09-29 00:00 :00 No [id number] 1{tbl} Q.25D Take 1 tablet by mouth every 6 hours as needed for pain. Cynthia gonzalez DULoxetine (CYMBALTA) 60 MG capsule 09-09 00:00: 00 10-08 23:59 :00 Yes 60mg QD Take 1 capsule (60 mg total) by mouth daily for 30 days. [facility] varenicline (CHANTIX) 1 mg tablet 09-08 10:51: 03 Yes 1mg Q.5D Take 1 tablet (1 mg total) by mouth 2 (two) times daily Give with meals and with a full glass of water.. [facility] atorvastati n (LIPITOR) 20 MG tablet 09-08 10:51: 03 Yes 20mg QD Take 1 tablet (20 mg total) by mouth daily. [facility] Cyanocobala min (Vitamin B-12) 1000 MCG oral Tablet 09-08 00:00: 00 10-08 04:59 :00 Yes 1000ug Take 1 tablet (1,000 mcg total) by mouth daily. Cynthia gonzalez lidocaine (LIDODERM) 4 % patch 09-08 00:00: 00 10-07 23:59 :00 Yes 3{patch } Q24H Place 3 patches onto the skin daily for 30 days. [facility] metoprolol succinate (TOPROL-XL) 25 MG 24 hr tablet 09-07 16:47: 05 09-07 00:00 :00 No 25mg QD Take 1 tablet (25 mg total) by mouth daily. [facility] albuterol HFA (VENTOLIN HFA) 90 mcg/actuati on inhaler 09-07 16:47: 05 09-07 00:00 :00 No 1{puff} Inhale 1 puff by mouth via inhaler every 6 (six) hours as needed for Wheezing. [facility] fluticasone -umeclidin- vilanter (Trelegy Ellipta) 200-62.5-25 mcg DsDv 09-07 16:47: 05 09-07 00:00 :00 No QD Inhale by mouth via inhaler daily. [facility] Albuterol HFA 108 (90 Base) MCG/ACT [...] total) by mouth daily for 30 days. [facility] polyethylen e glycol (GLYCOLAX) 17 gram packet 09-07 00:00: 00 10-06 23:59 :00 Yes 17g Q.5D Take 17 g by mouth 2 (two) times daily for 30 days. [facility] gabapentin (NEURONTIN) 400 MG capsule 09-07 00:00: 00 10-06 23:59 :00 Yes 400mg Q.[id number] 3D Take 1 capsule (400 mg total) by mouth 3 (three) times daily for 30 days. [facility] furosemide (LASIX) 20 MG tablet 09-07 00:00: 00 10-06 23:59 :00 Yes 20mg QD Take 1 tablet (20 mg total) by mouth daily for 30 days. [facility] fluticasone -umeclidin- vilanter (Trelegy Ellipta) 200-62.5-25 mcg DsDv 00:00: 00 10-06 23:59 :00 Yes 1{inhal ation} QD Inhale 1 Inhalation by mouth via inhaler daily for 30 days. [facility] metoprolol succinate (TOPROL-XL) 25 MG 24 hr tablet 09-07 00:00: 00 10-06 23:59 :00 Yes 25mg QD Take 1 tablet (25 mg total) by mouth daily for 30 days. [facility] lacosamide (VIMPAT) 100 mg in NaCl 0.9% (NS) 50 mL piggyback 08-12 21:15: 00 08-12 21:23 :00 No 100mg 100 mg, IV Piggyback, ONCE, 1 dose, On Thu08/12/23 at 1515, Administer over 30 Minutes, 50 mL
Facu lty member approving Restricted medication : BRIAN BRYAN [facility] Dicyclomine HCl 20 MG oral Tablet 08-06 [...] total) by mouth daily for 5 days. [facility] metoprolol succinate (TOPROL-XL) 25 MG 24 hr tablet 2022-07 19:45: 32 Yes 25mg QD Take 1 tablet (25 mg total) by mouth daily. [facility] varenicline (CHANTIX) 1 mg tablet 2022-07 19:45: 32 Yes 1mg Q.5D Take 1 tablet (1 mg total) by mouth 2 (two) times daily Give with meals and with a full glass of water.. [facility] albuterol HFA (VENTOLIN HFA) 90 mcg/actuati on inhaler 2022-07 19:45: 32 Yes 1{puff} Inhale 1 puff by mouth via inhaler every 6 (six) hours as needed for Wheezing. [facility] fluticasone -umeclidin- vilanter (Trelegy Ellipta) 200-62.5-25 mcg DsDv 2022-07 19:45: 32 Yes QD Inhale by mouth via inhaler daily. [facility] atorvastati n (LIPITOR) 20 MG tablet 2022-07 19:45: 32 Yes 20mg QD Take 1 tablet (20 mg total) by mouth daily. [facility] acetaminoph en-codeine (TYLENOL #3) 300-30 mg per tablet 2022-07 18:02: 00 06-16 00:00 :00 No 1{tbl} Take 1 tablet by mouth every 4 (four) hours as needed for Pain. [facility] DULoxetine (CYMBALTA) 30 MG capsule 2022-07 00:00: 00 09-08 00:00 :00 No 30mg QD Take 1 capsule (30 mg total) by mouth daily for 90 days. [facility] metroNIDAZO LE (FLAGYL) 500 MG tablet 2022-07 00:00: 00 07-04 23:59 :00 No 500mg Take 1 tablet (500 mg total) by mouth every 8 (eight) hours for 18 days. [facility] ciprofloxac in HCl (CIPRO) 500 MG tablet 2022-07 00:00: 00 07-04 23:59 :00 No 500mg Q.5D Take 1 tablet (500 mg total) by mouth 2 (two) times daily for 18 days. [facility] cyclobenzap rine (FLEXERIL) 10 MG tablet 2022-07 00:00: 00 06-26 23:59 :00 No 10mg Q.[id number] 3D Take 1 tablet (10 mg total) by mouth 3 (three) times daily for 10 days. [facility] oxyCODONE (OXY-IR) 10 mg tablet 2022-07 00:00: 00 06-26 23:59 :00 No 10mg Take 1 tablet (10 mg total) by mouth every 8 (eight) hours as needed for up to 10 days. Max Daily Amount: 30 mg [facility] nystatin (MYCOSTATIN ) 100,000 unit/mL suspension 2022-07 00:00: 00 06-21 23:59 :00 No [id number] Q.25D Take 5 mLs (500,000 Units total) by mouth 4 (four) times daily for 5 days. [facility] dexAMETHaso ne (DECADRON) 2 MG tablet 2022-07 00:00: 00 06-08 23:59 :00 No 1mg Take 0.5 tablets (1 mg total) by mouth 2 (two) times daily with breakfast and dinner for 2 days. [facility] dexAMETHaso ne (DECADRON) 2 MG tablet 2022-07 00:00: 00 06-06 23:59 :00 No 2mg Take 1 tablet (2 mg total) by mouth 2 (two) times daily with breakfast and dinner for 1 day. [facility] metoprolol succinate (TOPROL-XL) 25 MG 24 hr tablet 2022-07 17:44: 21 Yes 25mg QD Take 1 tablet (25 mg total) by mouth daily. [facility] varenicline (CHANTIX) 1 mg tablet 2022-07 17:44: 21 Yes 1mg Q.5D Take 1 tablet (1 mg total) by mouth 2 (two) times daily Give with meals and with a full glass of water.. [facility] albuterol HFA (VENTOLIN HFA) 90 mcg/actuati on inhaler 2022-07 17:44: 21 Yes 1{puff} Inhale 1 puff by mouth via inhaler every 6 (six) hours as needed for Wheezing. [facility] fluticasone -umeclidin- vilanter (Trelegy Ellipta) 200-62.5-25 mcg DsDv 2022-07 17:44: 21 Yes QD Inhale by mouth via inhaler daily. [facility] atorvastati n (LIPITOR) 20 MG tablet 2022-07 17:44: 21 Yes 20mg QD Take 1 tablet (20 mg total) by mouth daily. [facility] acetaminoph en-codeine (TYLENOL #3) 300-30 mg per tablet 2022-07 17:44: 21 Yes 1{tbl} Take 1 tablet by mouth every 4 (four) hours as needed for Pain. [facility] Naloxone (NARCAN) 4 MG/0.1ML nasal Liquid 2022-07 00:00: 00 Yes 4mg 0.1 mL (4 mg total) as needed. Cynthia gonzalez senna (SENOKOT) 8.6 mg tablet 2022-07 00:00: 00 06-18 23:59 :00 No 17.2mg Q.5D Take 2 tablets (17.2 mg total) by mouth 2 (two) times daily for 14 days. [facility] cyclobenzap rine (FLEXERIL) 10 MG tablet 2022-07 00:00: 00 06-16 00:00 :00 No 10mg [id number] 3D Take 1 tablet (10 mg total) by mouth 3 (three) times daily for 10 days. [facility] methocarbam oL (ROBAXIN) 500 MG tablet 2022-07 00:00: 00 06-16 00:00 :00 No 500mg Q.25D Take 1 tablet (500 mg total) by mouth 4 (four) times daily for 10 days. [facility] lactulose (CHRONULAC) 20 gram/30 mL solution 2022-07 00:00: 00 06-11 23:59 :00 No 20g Q.[id number] 3D Take 30 mLs (20 g total) by mouth 3 (three) times daily for 7 days. [facility] ondansetron (ZOFRAN-ODT ) 4 MG disintegrat ing tablet 2022-07 00:00: 00 06-11 23:59 :00 No 4mg Take 1 tablet (4 mg total) by mouth every 6 (six) hours as needed for up to 7 days. [facility] metoprolol succinate (TOPROL-XL) 25 MG 24 hr tablet 2022-07 15:23: 22 Yes 25mg QD Take 1 tablet (25 mg total) by mouth daily. [facility] varenicline (CHANTIX) 1 mg tablet 2022-07 15:23: 22 Yes 1mg Q.5D Take 1 tablet (1 mg total) by mouth 2 (two) times daily Give with meals and with a full glass of water.. [facility] albuterol HFA (VENTOLIN HFA) 90 mcg/actuati on inhaler 2022-07 15:23: 22 Yes 1{puff} Inhale 1 puff by mouth via inhaler every 6 (six) hours as needed for Wheezing. [facility] fluticasone -umeclidin- vilanter (Trelegy Ellipta) 200-62.5-25 mcg DsDv 2022-07 15:23: 22 Yes QD Inhale by mouth via inhaler daily. [facility] atorvastati n (LIPITOR) 20 MG tablet 2022-07 15:23: 22 Yes 20mg QD Take 1 tablet (20 mg total) by mouth daily. [facility] acetaminoph en-codeine (TYLENOL #3) 300-30 mg per tablet 2022-07 15:23: 22 Yes 1{tbl} Take 1 tablet by mouth every 4 (four) hours as needed for Pain. [facility] acetaminoph en-codeine (TYLENOL #3) 300-30 mg per tablet 2022-07 09:42: 02 Yes 1{tbl} Take 1 tablet by mouth every 4 (four) hours as needed for Pain. Max Daily Amount: 6 tablets [facility] varenicline (CHANTIX) 1 mg tablet 2022-07 09:40: 04 Yes 1mg Q.5D Take 1 tablet (1 mg total) by mouth 2 (two) times daily Give with meals and with a full glass of water.. [facility] albuterol HFA (VENTOLIN HFA) 90 mcg/actuati on inhaler 2022-07 09:40: 04 Yes 1{puff} Inhale 1 puff by mouth via inhaler every 6 (six) hours as needed for Wheezing. [facility] fluticasone -umeclidin- vilanter (Trelegy Ellipta) 200-62.5-25 mcg DsDv 2022-07 09:40: 04 Yes QD Inhale by mouth via inhaler daily. [facility] atorvastati n (LIPITOR) 20 MG tablet 2022-07 09:40: 04 Yes 20mg QD Take 1 tablet (20 mg total) by mouth daily. [facility] metoprolol succinate (TOPROL-XL) 25 MG 24 hr tablet 2022-07 09:13: 28 Yes 25mg QD Take 1 tablet (25 mg total) by mouth daily. [facility] Metoprolol Succinate 25 MG oral TABLET SR 24 HR 2022-07 00:00: 00 Yes 25mg Take 1 tablet (25 mg total) by mouth daily. Cynthia gonzalez Atorvastati n Calcium 20 MG oral Tablet 2022-07 00:00: 00 Yes 20mg Take 1 tablet (20 mg total) by mouth daily. Cynthia gonzalez Nitroglycer in 0.4 MG sublingual SL Tab 2022-07 00:00: 00 Yes .4mg 1 tablet (0.4 mg total). Cynthia gonzalez Furosemide 40 MG oral Tablet 2022-07 00:00: 00 Yes 40mg 1 tablet (40 mg total). Cynthia Santoyo Externa lisa Aspirin 81 MG oral Chewable Tablet 2022-07 0 00:00: 00 Yes 81mg 1 tablet (81 mg total). Cynthia gonzalez Fluticasone -Umeclidin- Vilant (Trelegy Ellipta) 100-62.5-25 MCG/ACT inhalation AEROSOL POWDER, BREATH ACTIVATED 2022-07 0 00:00: 00 09-29 00:00 :00 No 1{puff} 1 puff by other route daily. Cynthia gonzalez Duloxetine HCl [address] Particles 04-03 00:00: 00 Yes 30mg Take 1 capsule (30 mg total) by mouth daily. Cynthia Radha gonzalez Gabapentin 300 MG oral Capsule 04-03 00:00: 00 Yes Cynthia Radha gonzalez furosemide (LASIX) 20 MG tablet 04-03 00:00: 00 09-07 00:00 :00 No 20mg QD Take 1 tablet (20 mg total) by mouth daily. [facility] aspirin 81 MG EC tablet 04-03 00:00: 00 07-02 23:59 :00 No 81mg QD Take 1 tablet (81 mg total) by mouth daily for 90 days. [facility] divalproex (DEPAKOTE) 500 MG EC tablet 04-03 00:00: 00 07-02 23:59 :00 No 500mg Q.5D Take 1 tablet (500 mg total) by mouth 2 (two) times daily for 90 days. [facility] lisinopriL (PRINIVIL,Z ESTRIL) 5 MG tablet 04-03 00:00: 00 05-28 00:00 :00 No 5mg QD Take 1 tablet (5 mg total) by mouth daily. [facility] clonazePAM (KlonoPIN) 0.5 MG tablet 04-03 00:00: 00 05-03 23:59 :00 No .25mg Take 0.5 tablets (0.25 mg total) by mouth 2 (two) times daily as needed for Anxiety for up to 30 days. Max Daily Amount: 0.5 mg [facility] HYDROcodone -acetaminop hen (NORCO 10-325) 10-325 mg per tablet 04-03 00:00: 00 04-13 23:59 :00 No 1{tbl} Take 1 tablet by mouth every 6 (six) hours as needed for up to 10 days. Max Daily Amount: 4 tablets [facility] methocarbam oL (ROBAXIN) 500 MG tablet 04-03 00:00: 00 04-13 23:59 :00 No 500mg Q.25D Take 1 tablet (500 mg total) by mouth 4 (four) times daily for 10 days. [facility] gabapentin (NEURONTIN) 300 MG capsule 04-02 00:00: 00 04-03 00:00 :00 No 300mg Q.[id number] 3D Take 1 capsule (300 mg total) by mouth 3 (three) times daily for 90 days. [facility] divalproex (DEPAKOTE) 500 MG EC tablet 04-02 00:00: 00 04-03 00:00 :00 No 500mg Q.5D Take 1 tablet (500 mg total) by mouth 2 (two) times daily for 90 days. [facility] clonazePAM (KlonoPIN) 0.5 MG tablet 04-02 00:00: 00 04-03 00:00 :00 No .25mg Take 0.5 tablets (0.25 mg total) by mouth 2 (two) times daily as needed for Anxiety for up to 30 days. Max Daily Amount: 0.5 mg [facility] HYDROcodone -acetaminop hen (NORCO 10-325) 10-325 mg per tablet 04-02 00:00: 00 04-03 00:00 :00 No 1{tbl} Take 1 tablet by mouth every 6 (six) hours as needed for up to 10 days. Max Daily Amount: 4 tablets [facility] methocarbam oL (ROBAXIN) 500 MG tablet 04-02 00:00: 00 04-03 00:00 :00 No 500mg Q.25D Take 1 tablet (500 mg total) by mouth 4 (four) times daily for 10 days. [facility] Metronidazo le 500 MG oral Tablet 7- 00:00: 00 Yes Cynthia gonzalez Clonazepam 1 MG oral Tablet 6-30 00:00: 00 09-29 00:00 :00 No 1mg [...] member approving Restricted medication : Alfonso ALVARADO [facility] ketorolac (TORADOL) injection 15 mg 12-11 18:15: 00 12-11 17:25 :00 No 15mg 15 mg, Slow IV Push, ONCE, 1 dose, On Thu12/11/22 at 1315, [facility] iopamidol (ISOVUE 370-500 mL) injection 80 mL 12-11 16:30: 00 12-11 16:27 :00 No [id number] 80mL 80 mL, Intravenou s, ONCE, 1 dose, On Thu12/11/22 at 1130, Routine [facility] nitroglycer in (NITROL) 2 % ointment 0.5 Inch 12-11 15:30: 00 12-11 14:31 :00 No .5[in_u s] 0.5 Inch, Transderma l (Apply To Skin), ONCE, 1 dose, On Thu12/11/22 at 1030[facility] 324 mg 12-11 15:30: 00 12-11 14:30 :00 No 324mg 324 mg, Oral, ONCE, 1 dose, On Thu12/11/22 at 1030, Routine [facility] ondansetron (ZOFRAN (PF)) injection 4 mg 12-11 15:30: 00 12-11 14:29 :00 No 4mg 4 mg, Slow IV Push, ONCE, 1 dose, On Thu12/11/22 at 1030, [facility] LORazepam (ATIVAN) injection 1 mg 12-11 15:00: 00 12-11 14:57 :00 No 1mg 1 mg, Slow IV Push, ONCE, 1 dose, On Thu12/11/22 at 1000, STAT [facility] Lacosamide (VIMPAT) 100 mg tablet 12-11 00:00: 00 Yes [id number] 100mg Take 1 tablet by mouth in the morning and 1 tablet in the evening. [facility] acetaminoph en-codeine (TYLENOL #3) 300-30 mg [...] ONCE, 1 dose, On Thu11/17/22 at 2345, [facility] morpHINE (4 mg/mL) injection 4 mg 11-18 03:45: 00 11-18 03:38 :00 No 4mg 4 mg, Slow IV Push, ONCE, 1 dose, On Thu11/17/22 at 2245, Routine [facility] methocarbam oL (ROBAXIN) injection 1,000 mg 11-18 00:30: 00 11-17 23:47 :00 No 1000mg 1,000 mg, Intravenou s, ONCE, 1 dose, On Thu11/17/22 at 1930, MICHAEL [facility] methocarbam oL 500 mg tablet 11-18 00:00: 00 Yes [id number] 1000mg Take 2 tablets by mouth 4 (four) times daily as needed for Pain (scale 7-10). [facility] acetaminoph en-codeine 300-60 mg tablet 11-18 00:00: 00 11-26 04:59 :00 No [id number] 1{tbl} Take 1 tablet by mouth every 6 (six) hours as needed for Pain for up to 7 days. Indication s: acute pain [facility] ketorolac (TORADOL) injection 15 mg 11-18 00:00: 00 11-17 23:08 :00 No 15mg 15 mg, Slow IV Push, ONCE, 1 dose, On Thu11/17/22 at 1900, Routine [facility] morpHINE (4 mg/mL) injection 4 mg 11-17 23:45: 00 11-17 23:49 :00 No 4mg 4 mg, Slow IV Push, ONCE, 1 dose, On Thu11/17/22 at 1845, Routine [facility] ondansetron (ZOFRAN (PF)) injection 4 mg 11-17 23:15: 00 11-17 23:06 :00 No 4mg 4 mg, Slow IV Push, ONCE, 1 dose, On Thu11/17/22 at 1815, MICHAEL [facility] lisinopriL (PRINIVIL,Z ESTRIL) tablet 10 mg 08-02 15:00: 00 Yes 10mg 10 mg, Oral, DAILY, First dose on 08/02/22 at 0900, Until Discontinu ed, Routine [facility] predniSONE (DELTASONE) tablet 40 mg 2023-0 1-14 15:00: 00 08-07 14:59 :00 No 40mg 40 mg, Oral, DAILY, 5 doses, First dose on Thu08/02/22 at 0900, Last dose on Thu08/06/22 at 0900, Routine [facility] morpHINE (2 mg/mL) injection 2 mg 08-02 03:29: 15 Yes 2mg 2 mg, Slow IV Push, Q4HPRN, Starting on Thu08/01/22 at 2129, Until Discontinu ed, Routine, Pain (scale 7-10) [facility] levETIRAcet am (KEPPRA) in NACL (ISO-OS) 1,000 mg/100 mL RTU 08-02 00:00: 00 Yes 1000mg 1,000 mg, IV Piggyback, Q12H, First dose on Thu08/01/22 at 1800, Until Discontinu ed, Administer over 15 Minutes, 100 mL [facility] MULTIVITAMI N ORAL 08-01 23:49: 34 Yes 1{tbl} Take 1 Tab by mouth daily. [facility] omega-3 fatty acids-vitam in E (FISH OIL) 1,000 mg capsule 08-01 23:49: 34 Yes 1g Take 1 g by mouth daily. [facility] loratadine (CLARITIN LIQUI-GEL) 10 mg capsule 08-01 23:49: 34 Yes Take by mouth daily. [facility] ondansetron 4 mg tablet 08-01 23:49: 34 Yes 4mg Take 4 mg by mouth every 8 (eight) hours as needed. [facility] pantoprazol e 40 mg EC tablet 08-01 23:49: 34 Yes 40mg Take 40 mg by mouth daily. [facility] omega-3 fatty acids-vitam in E (FISH OIL) 1,000 mg capsule 08-01 23:49: 34 Yes 1g Take 1 g by mouth daily. [facility] benzonatate (TESSALON PERLES) capsule 100 mg 08-01 20:00: 00 Yes 100mg 100 mg, Oral, Q8H, First dose on Thu08/01/22 at 1400, Until Discontinu ed, Routine [facility] ipratropium -albuteroL (DUONEB) 0.5 mg-3 mg(2.5 mg base)/3 mL nebulizer solution 3 mL 08-01 18:00: 00 Yes 3mL 3 mL, Inhalation , QID, First dose on Thu08/01/22 at 1200, Until Discontinu ed, Routine [facility] ipratropium -albuteroL (DUONEB) 0.5 mg-3 mg(2.5 mg base)/3 mL nebulizer solution 3 mL 08-01 17:07: 07 Yes 3mL 3 mL, Inhalation , QIDPRN, Starting on Thu08/01/22 at 1107, Until Discontinu ed, MICHAEL, Wheezing, Shortness of Breath [facility] sulfur hexafluorid e microsphr (LUMASON) injection 5 mL 08-01 17:00: 00 08-01 17:00 :00 No [id number] 5mL 5 mL, Intravenou s, ONCE, 1 dose, On Thu08/01/22 at 1100, Routine
guardian family member approving Restricted medication : KYLEE MONTEZ [facility] pantoprazol e (PROTONIX) EC tablet 40 mg 08-01 15:00: 00 Yes 40mg 40 mg, Oral, DAILY, First dose on Thu08/01/22 at 0900, Until Discontinu ed, Routine [facility] aspirin chewable tablet 81 mg 08-01 15:00: 00 Yes 81mg 81 mg, Oral, DAILY, First dose on Thu08/01/22 at 0900, Until Discontinu ed, Routine [facility] amLODIPine (NORVASC) tablet 10 mg 08-01 15:00: 00 Yes 10mg 10 mg, Oral, DAILY, First dose on Thu08/01/22 at 0900, Until Discontinu ed, Routine [facility] levETIRAcet am (KEPPRA) tablet 500 mg 08-01 14:00: 00 08-01 23:56 :35 No 500mg 500 mg, Oral, BID, First dose on Thu08/01/22 at 0800, Until Discontinu ed, Routine [facility] carvediloL (COREG) tablet 6.25 mg 08-01 14:00: 00 08-01 17:29 :13 No 6.25mg 6.25 mg, Oral, BID MEALS, First dose on Thu08/01/22 at 0800, Until Discontinu ed, Routine [facility] levETIRAcet am (KEPPRA) in NACL (ISO-OS) 1,000 mg/100 mL RTU 08-01 06:45: 00 08-01 06:32 :00 No 1000mg 1,000 mg, IV Piggyback, ONCE, 1 dose, On Thu08/01/22 at 0045, Administer over 15 Minutes, 100 mL [facility] LORazepam (ATIVAN) injection 1 mg 08-01 05:52: 54 Yes 1mg 1 mg, Slow IV Push, Q4HPRN, Starting on Thu07/31/22 at 2352, Until Discontinu ed, Routine, Seizures, Agitation, Anxiety, ETOH / Cocaine Withdrawl [facility] foLIC acid (FOLATE) tablet 1 mg 08-01 05:45: 00 Yes 1mg 1 mg, Oral, DAILY, First dose on Thu07/31/22 at 2345, Until Discontinu ed, Routine [facility] thiamine (VITAMIN B1) tablet 100 mg 08-01 05:45: 00 Yes 100mg 100 mg, Oral, DAILY, First dose on Thu07/31/22 at 2345, Until Discontinu ed, Routine [facility] LORazepam (ATIVAN) injection 0.5 mg 08-01 05:30: 00 08-01 05:29 :00 No .5mg 0.5 mg, Slow IV Push, ONCE, 1 dose, On Thu07/31/22 at 2330, MICHAEL [facility] atorvastati n (LIPITOR) tablet 40 mg 08-01 03:00: 00 Yes 40mg 40 mg, Oral, QHS, First dose on Thu07/31/22 at 2100, Until Discontinu ed, Routine [facility] diphenhydrA MINE (BENADRYL) tablet 25 mg 08-01 00:32: 02 Yes 25mg 25 mg, Oral, Q6HPRN, Starting on Thu07/31/22 at 1832, Until Discontinu ed, Routine, Itching [facility] enoxaparin (LOVENOX) injection 40 mg 07-31 23:00: 00 Yes 40mg 40 mg, Subcutaneo us, DAILY, First dose on Thu07/31/22 at 1700, Until Discontinu ed, Routine [facility] morpHINE (2 mg/mL) injection 2 mg 07-31 23:00: 00 07-31 22:29 :00 No 2mg 2 mg, Slow IV Push, ONCE, 1 dose, On Thu07/31/22 at 1700, Routine [facility] HYDROcodone -acetaminop hen (NORCO) 10-325 mg tablet 1 tablet 07-31 22:01: 36 Yes 1{tbl} 1 tablet, Oral, Q6HPRN, Starting on Thu07/31/22 at 1601, Until Discontinu ed, Routine, Pain (scale 7-10) [facility] HYDROcodone -acetaminop hen (NORCO 5) 5-325 mg tablet 1 tablet 07-31 22:01: 34 08-02 22:00 :34 No 1{tbl} 1 tablet, Oral, Q6HPRN, Starting on Thu07/31/22 at 1601, Until 08/02/22 at 1600, Routine, Pain (scale 4-6) [facility] acetaminoph en (TYLENOL) tablet 650 mg 07-31 22:01: 33 Yes 650mg 650 mg, Oral, Q6HPRN, Starting on Thu07/31/22 at 1601, Until Discontinu ed, Routine, Pain (scale 1-3) [facility] ketorolac (TORADOL) injection 15 mg 07-31 21:45: 00 07-31 20:50 :00 No 15mg 15 mg, Slow IV Push, ONCE, 1 dose, On Arpita 07/31/22 at 1545, Routine [facility] ondansetron (ZOFRAN (PF)) injection 4 mg 07-31 21:00: 00 07-31 20:47 :00 No 4mg 4 mg, Slow IV Push, ONCE, 1 dose, On Arpita 07/31/22 at 1500, MICHAEL [facility] furosemide (LASIX) injection 40 mg 07-31 20:15: 00 Yes 40mg 40 mg, Slow IV Push, Q12H, First dose on Arpita 07/31/22 at 1415, Until Discontinu ed, Routine [facility] methylpredn isolone sod succ (SOLU-MEDRO L) injection 125 mg 07-31 19:30: 00 07-31 18:54 :00 No 125mg 125 mg, Slow IV Push, ONCE NOW, 1 dose, On Arpita 07/31/22 at 1330, MICHAEL [facility] ipratropium -albuteroL (DUONEB) 0.5 mg-3 mg(2.5 mg base)/3 mL nebulizer solution 3 mL 07-31 19:30: 00 07-31 18:48 :00 No 3mL 3 mL, Inhalation , ONCE, 1 dose, On Arpita 07/31/22 at 1330, MICHAEL [facility] pantoprazol e 40 mg EC tablet 07-31 17:15: 40 Yes 40mg Take 40 mg by mouth daily. [facility] MULTIVITAMI N ORAL 07-31 15:50: 57 Yes 1{tbl} Take 1 Tab by mouth daily. [facility] loratadine (CLARITIN LIQUI-GEL) 10 mg capsule 07-31 15:50: 57 Yes Take by mouth daily. [facility] ondansetron 4 mg tablet 07-31 15:50: 57 Yes 4mg Take 4 mg by mouth every 8 (eight) hours as needed. [facility] omega-3 fatty acids-vitam in E (FISH OIL) 1,000 mg capsule 07-31 15:21: 27 Yes 1g Take 1 g by mouth daily. [facility] TAKE ONE (1) TABLET(S) BY MOUTH THREE TIMES A DAY NEEDED. - 00:00: 00 No Methylpredn isolone 4 mg tablet 2021-07 00:00: 00 05-12 04:59 :00 No [id number] 4mg Take 1 tablet through enteral tube in the morning for 1 dose. [facility] Methylpredn isolone 4 mg tablet 2021-07 00:00: 00 05-11 04:59 :00 No [id number] 4mg Take 1 tablet through enteral tube every 12 (twelve) hours for 2 doses. [facility] MULTIVITAMI N ORAL 2021-07 14:44: 48 Yes 1{tbl} Take 1 Tab by mouth daily. [facility] omega-3 fatty acids-vitam in E (FISH OIL) 1,000 mg capsule 2021-07 14:44: 48 Yes 1g Take 1 g by mouth daily. [facility] loratadine (CLARITIN LIQUI-GEL) 10 mg capsule 2021-07 14:44: 48 Yes Take by mouth daily. [facility] ondansetron (ZOFRAN) 4 mg tablet 2021-07 14:44: 48 Yes 4mg Take 4 mg by mouth every 8 (eight) hours as needed. [facility] pantoprazol e (PROTONIX) 40 mg EC tablet 2021-07 14:44: 48 Yes 40mg Take 40 mg by mouth daily. [facility] DULoxetine (CYMBALTA) capsule 30 mg 2021-07 14:00: 00 Yes 30mg 30 mg, Oral, DAILY, First dose on Arpita 05/08/22 at 0900, Until Discontinu ed, Routine [facility] divalproex (DEPAKOTE) EC tablet 1,000 mg 2021-07 13:00: 00 Yes 1000mg 1,000 mg, Oral, BID, First dose (after last modificati on) on Thu05/08/22 at 0800, Until Discontinu ed, Routine [facility] Methylpredn isolone (MEDROL) tablet 4 mg 2021-07 08:50: 10 05-09 08:59 :00 No 4mg 4 mg, Oral, Q8H TAPER, 3 doses, First dose on Thu05/08/22 at 0400, Last dose on Thu05/08/22 at 2000, Routine [facility] acetaminoph en-codeine (TYLENOL #3) 300-30 mg tablet 1 tablet 2021-07 04:07: 01 Yes 1{tbl} 1 tablet, Oral, Q4HPRN, Starting on Thu05/07/22 at 2307, Until Discontinu ed, Routine, Pain (scale 7-10) [facility] morpHINE (2 mg/mL) injection 2 mg 2021-07 03:03: 15 Yes 2mg 2 mg, Slow IV Push, Q4HPRN, Starting on Thu05/07/22 at 2203, Until Discontinu ed, Routine, Pain (scale 7-10) [facility] LORazepam (ATIVAN) tablet 1 mg 2021-07 00:02: 18 Yes 1mg 1 mg, Oral, Q6HPRN, Starting on Thu05/07/22 at 1902, Until Discontinu ed, Routine, Anxiety [facility] cyclobenzap rine 5 mg tablet 2021-07 00:00: 00 Yes [id number] 5mg Take 1 tablet by mouth in the morning and 1 tablet at noon and 1 tablet in the evening. [facility] DULoxetine (CYMBALTA) 30 mg capsule 2021-07 00:00: 00 06-08 05:59 :00 No [id number] 60mg Take 2 capsules by mouth in the morning for 30 days. [facility] divalproex (DEPAKOTE) 250 mg EC tablet 2021-07 00:00: 06-08 05:59 :00 No [id number] 750mg Take 3 tablets by mouth every 8 (eight) hours for 30 days. [facility] LORazepam 1 mg tablet 2021-07 00:00: 05-19 04:59 :00 No [id number] 1mg Take 1 tablet by mouth every 6 (six) hours as needed for Anxiety or Agitation for up to 10 days. [facility] acetaminoph en-codeine 300-30 mg tablet 2021-07 00:00: 05-16 04:59 :00 No [id number] 1{tbl} Take 1 tablet by mouth every 4 (four) hours as needed for Pain (scale 7-10) for up to 7 days. Indication s: acute pain [facility] Methylpredn isolone 4 mg tablet 2021-07 00:00: 00 05-10 04:59 :00 No [id number] 4mg Take 1 tablet by mouth every 8 (eight) hours for 3 doses. [facility] divalproex (DEPAKOTE) EC tablet 750 mg 2021-07 01:00: 00 05-08 09:40 :23 No 750mg 750 mg, Oral, BID, First dose on Thu05/06/22 at 2000, Until Discontinu ed, Routine [facility] levETIRAcet am (KEPPRA) tablet 1,500 mg 2021-07 13:00: 00 05-06 18:38 :22 No 1500mg 1,500 mg, Oral, BID, First dose (after last modificati on) on Thu05/06/22 at 0800, Until Discontinu ed, Routine [facility] levETIRAcet am (KEPPRA) in NACL (ISO-OS) 1,000 mg/100 mL RTU 2021-07 05:00: 00 05-06 05:46 :00 No 1000mg 1,000 mg, IV Piggyback, ONCE, 1 dose, On Thu05/06/22 at 0000, Administer over 15 Minutes, 100 mL [facility] methocarbam oL (ROBAXIN) tablet 500 mg 2021-07 02:15: 00 05-06 23:21 :42 No 500mg 500 mg, Oral, QID, First dose on Thu05/05/22 at 2115, Until Discontinu ed, Routine [facility] LORazepam (ATIVAN) tablet 2 mg 2021-07 01:30: 00 05-06 01:03 :00 No 2mg 2 mg, Oral, ONCE, 1 dose, On Thu05/05/22 at 2030, Routine [facility] levETIRAcet am (KEPPRA) tablet 1,000 mg 2021-07 01:00: 00 05-06 04:48 :06 No 1000mg 1,000 mg, Oral, BID, First dose on Thu05/05/22 at 2000, Until Discontinu ed, Routine [facility] enoxaparin (LOVENOX) injection 40 mg 2021-07 00:15: 00 Yes 40mg 40 mg, Subcutaneo us, Q24H, First dose on Thu05/05/22 at 1915, Until Discontinu ed, Routine [facility] levETIRAcet am (KEPPRA) in NACL (ISO-OS) 1,000 mg/100 mL RTU 2021-07 19:45: 00 05-05 20:05 :00 No 1000mg 1,000 mg, IV Piggyback, ONCE, 1 dose, On Thu05/05/22 at 1445, Administer over 15 Minutes, 100 mL [facility] clonazePAM (KLONOPIN) tablet 0.5 mg 2021-07 19:30: 00 Yes .5mg 0.5 mg, Oral, BID, First dose on Thu05/05/22 at 1430, Until Discontinu ed, Routine [facility] ibuprofen (IBU) tablet 600 mg 2021-07 19:30: 00 Yes 600mg 600 mg, Oral, TID MEALS, First dose on Thu05/05/22 at 1430, Until Discontinu ed, Routine [facility] gabapentin (NEURONTIN) capsule 300 mg 2021-07 19:30: 00 Yes 300mg 300 mg, Oral, TID, First dose on Thu05/05/22 at 1430, Until Discontinu ed, Routine [facility] cyclobenzap rine (FLEXERIL) tablet 5 mg 2021-07 19:30: 00 Yes 5mg 5 mg, Oral, TID, First dose on Thu05/05/22 at 1430, Until Discontinu ed, Routine [facility] acetaminoph en (TYLENOL) tablet 1,000 mg 2021-07 19:30: 00 Yes 1000mg 1,000 mg, Oral, Q8H, First dose on Thu05/05/22 at 1430, Until Discontinu ed, Routine [facility] pantoprazol e (PROTONIX) EC tablet 40 mg 2021-07 14:00: 00 Yes 40mg 40 mg, Oral, DAILY, First dose on Thu05/05/22 at 0900, Until Discontinu ed, Routine [facility] docusate (COLACE) capsule 100 mg 2021-07 14:00: 00 Yes 100mg 100 mg, Oral, DAILY, First dose on Thu05/05/22 at 0900, Until Discontinu ed, Routine [facility] HYDROcodone -acetaminop hen (NORCO) 10-325 mg tablet 1 tablet 2021-07 10:32: 02 05-05 19:18 :52 No 1{tbl} 1 tablet, Oral, Q6HPRN, Starting on Thu05/05/22 at 0532, Until Thu05/05/22 at 1418, Routine, Pain (scale 7-10) [facility] ondansetron (ZOFRAN (PF)) injection 4 mg 2021-07 06:49: 57 Yes 4mg 4 mg, Slow IV Push, Q6HPRN, Starting on Thu05/05/22 at 0149, Until Discontinu ed, Routine, Nausea and Vomiting (N/V) [facility] HYDROcodone -acetaminop hen (NORCO 5) 5-325 mg tablet 1 tablet 2021-07 06:49: 41 05-05 10:32 :14 No 1{tbl} 1 tablet, Oral, Q6HPRN, Starting on Thu05/05/22 at 0149, Until Thu05/05/22 at 0532, Routine, Pain (scale 7-10) [facility] acetaminoph en (TYLENOL) tablet 325 mg 2021-07 06:49: 39 05-05 19:18 :52 No 325mg 325 mg, Oral, Q4HPRN, Starting on Thu05/05/22 at 0149, Until Thu05/05/22 at 1418, Routine, Pain (scale 4-6) [facility] ondansetron (ZOFRAN) tablet 4 mg 2021-07 04:00: 00 05-05 03:26 :00 No 4mg 4 mg, Oral, ONCE, 1 dose, On Thu05/04/22 at 2300, Routine [facility] morpHINE (2 mg/mL) injection 2 mg 2021-07 04:00: 00 05-05 03:26 :00 No 2mg 2 mg, Slow IV Push, ONCE, 1 dose, On Thu05/04/22 at 2300, Routine [facility] aspirin 81 mg chewable tablet 04-16 00:00: 00 Yes [id number] 81mg Take 1 tablet by mouth in the morning. [facility] MULTIVITAMI N ORAL 04-15 17:39: 14 Yes 1{tbl} Take 1 Tab by mouth daily. [facility] omega-3 fatty acids-vitam in E (FISH OIL) 1,000 mg capsule 04-15 17:39: 14 Yes 1g Take 1 g by mouth daily. [facility] loratadine (CLARITIN LIQUI-GEL) 10 mg capsule 04-15 17:39: 14 Yes Take by mouth daily. [facility] ondansetron (ZOFRAN) 4 mg tablet 04-15 17:39: 14 Yes 4mg Take 4 mg by mouth every 8 (eight) hours as needed. [facility] pantoprazol e (PROTONIX) 40 mg EC tablet 04-15 17:39: 14 Yes 40mg Take 40 mg by mouth daily. [facility] lisinopril- hydrochloro thiazide 20-12.5 mg per tablet 04-15 15:58: 35 04-15 00:00 :00 No 1{tbl} Take 1 tablet by mouth daily. [facility] levetiracet am (KEPPRA ORAL) 04-15 15:58: 35 04-15 00:00 :00 No Take by mouth. [facility] acetaminoph en-codeine (TYLENOL #4) 300-60 mg tablet 1 tablet 04-15 05:39: 23 04-15 14:39 :42 No 1{tbl} 1 tablet, Oral, Q6HPRN, Starting on Thu04/15/22 at 0039, Until Thu04/15/22 at 0939, Routine, Pain (scale 4-6), Pain (scale 1-3) [facility] LORazepam (ATIVAN) tablet 2 mg 04-15 03:30: 00 04-15 10:27 :00 No 2mg 2 mg, Oral, ONCE, 1 dose, On Thu04/14/22 at 2230, Routine [facility] levETIRAcet am (KEPPRA) tablet 1,000 mg 04-15 02:45: 00 Yes 1000mg 1,000 mg, Oral, BID, First dose (after last modificati on) on Thu04/14/22 at 2145, Until Discontinu ed, Routine [facility] ketorolac (TORADOL) injection 15 mg 04-15 02:13: 00 04-15 02:22 :00 No 15mg 15 mg, Slow IV Push, ONCE, 1 dose, On Thu04/14/22 at 2115, Routine [facility] atorvastati n 40 mg tablet 04-15 00:00: 00 Yes [id number] 40mg Take 1 tablet by mouth at bedtime. [facility] levETIRAcet am 1,000 mg tablet 04-15 00:00: 00 05-08 00:00 :00 No [id number] 1000mg Take 1 tablet by mouth in the morning and 1 tablet in the evening. [facility] lidocaine 5 % (700 mg/patch) patch 04-15 00:00: 00 04-23 04:59 :00 No [id number] 1{patch } Apply 1 Patch to area(s) in the morning for 7 days. [facility] HYDROcodone -acetaminop hen 5-325 mg tablet 04-15 00:00: 00 04-21 04:59 :00 No [id number] 1{tbl} Take 1 tablet by mouth every 6 (six) hours as needed for Pain (scale 7-10) for up to 5 days. Indication s: acute pain [facility] lidocaine (LIDODERM) 5 % (700 mg/patch) patch 1 Patch 04-14 21:45: 29 Yes 1{patch } 1 Patch, Topical, Administer over 12 Hours, [id number], Starting on Thu04/14/22 at 1645, Until Discontinu ed, Routine, Localized pain [facility] aspirin chewable tablet 81 mg 04-14 21:30: 00 Yes 81mg 81 mg, Oral, DAILY, First dose on Thu04/14/22 at 1630, Until Discontinu ed, Routine [facility] acetaminoph en (TYLENOL) tablet 650 mg 04-14 21:29: 25 Yes 650mg 650 mg, Oral, Q6HPRN, Starting on Thu04/14/22 at 1629, Until Discontinu ed, Routine, Pain (scale 1-3), Temp > 38.5 C, Temp > 37.5 C [facility] HYDROcodone -acetaminop hen (NORCO) 10-325 mg tablet 1 tablet 04-14 21:29: 02 04-15 05:39 :41 No 1{tbl} 1 tablet, Oral, Q6HPRN, Starting on Thu04/14/22 at 1629, Until Thu04/15/22 at 0039, Routine, Pain (scale 7-10), Pain (scale 4-6) [facility] sulfur hexafluorid e microsphr (LUMASON) injection 5 mL 04-14 16:45: 00 04-14 16:45 :00 No [id number] 5mL 5 mL, Intravenou s, ONCE, 1 dose, On Thu04/14/22 at 1145, Routine
guardian family member approving Restricted medication : [employer] [facility] clopidogreL (PLAVIX) 75 mg tablet 75 mg 04-14 14:00: 00 Yes 75mg 75 mg, Oral, DAILY, First dose on Thu04/14/22 at 0900, Until Discontinu ed, Routine [facility] pantoprazol e (PROTONIX) EC tablet 40 mg 04-14 14:00: 00 Yes 40mg 40 mg, Oral, DAILY, First dose on Thu04/14/22 at 0900, Until Discontinu ed, Routine [facility] atorvastati n (LIPITOR) tablet 40 mg 04-14 02:00: 00 Yes 40mg 40 mg, Oral, QHS, First dose on Thu04/13/22 at 2100, Until Discontinu ed, Routine [facility] LORazepam (ATIVAN) tablet 1 mg 04-14 01:30: 00 04-14 01:45 :00 No 1mg 1 mg, Oral, ONCE, 1 dose, On Thu04/13/22 at 2030, Routine [facility] methocarbam oL (ROBAXIN) tablet 500 mg 04-14 01:00: 00 Yes 500mg 500 mg, Oral, QID, First dose on Thu04/13/22 at 2000, Until Discontinu ed, Routine [facility] heparin (porcine) injection 5,000 Units 04-14 01:00: 00 Yes 5000U 5,000 Units, Subcutaneo us, Q12H, First dose on Thu04/13/22 at 2000, Until Discontinu ed, Routine [facility] acetaminoph en (TYLENOL) tablet 650 mg 04-14 00:23: 25 04-14 21:29 :42 No 650mg 650 mg, Oral, Q6HPRN, Starting on Thu04/13/22 at 1923, Until Thu04/14/22 at 1629, Routine, Pain (scale 1-3), Pain (scale 4-6), Temp > 38.5 C, Temp > 37.5 C [facility] lidocaine (LIDODERM) 5 % (700 mg/patch) patch 1 Patch 04-14 00:22: 00 04-14 13:51 :00 No 1{patch } 1 Patch, Topical, Administer over 12 Hours, ONCE, 1 dose, On Thu04/13/22 at 1930, Routine [facility] FENTanyl PF (SUBLIMAZE (PF)) injection 50 mcg 04-13 20:30: 00 04-13 19:22 :00 No 50ug 50 mcg, Slow IV Push, ONCE, 1 dose, On Thu04/13/22 at 1530, Routine [facility] aspirin chewable tablet 650 mg 04-13 20:15: 00 04-13 20:15 :00 No 650mg 650 mg, Oral, ONCE, 1 dose, On Thu04/13/22 at 1515, Routine [facility] clopidogreL (PLAVIX) 300 mg tablet 300 mg 04-13 20:00: 00 04-13 19:15 :00 No 300mg 300 mg, Oral, ONCE, 1 dose, On Thu04/13/22 at 1500, Routine [facility] ondansetron (ZOFRAN (PF)) injection 4 mg 04-13 19:30: 00 04-13 19:22 :00 No 4mg 4 mg, Slow IV Push, ONCE, 1 dose, On Thu04/13/22 at 1430, MICHAEL [facility] iopamidol (ISOVUE 370-500 mL) injection 100 mL 04-13 18:31: 00 04-13 18:32 :00 No [id number] 100mL 100 mL, Intravenou s, ONCE, 1 dose, On Thu04/13/22 at 1345, Routine [facility] NaCl 0.9% (NS) injection 5 mL 04-13 18:14: 11 Yes 5mL 5 mL, Slow IV Push, PRN - SEE INSTRUCTIO NS, Starting on 04/13/22 at 1314, Until Discontinu ed, 10 mL [facility] aspirin chewable tablet 324 mg 11-24 14:00: 00 Yes 324mg 324 mg, Oral, DAILY, First dose on 11/24/21 at 0900, Until Discontinu ed, Routine [facility] metoclopram iker HCl (REGLAN) injection 10 mg 11-23 22:30: 00 11-23 21:24 :00 No 10mg 10 mg, Slow IV Push, ONCE, 1 dose, On 11/23/21 at 1730, [facility] acetaminoph en (TYLENOL) tablet [...] 1 dose, On 11/23/21 at 1630, STAT [facility] levETIRAcet am (KEPPRA) in NACL (ISO-OS) 1,500 mg/100 mL RTU 2-0 5-07 21:30: 00 2021- 05-07 20:47 :00 No 1500mg 1,500 mg, IV Piggyback, ONCE, 1 dose, On 11/23/21 at 1630, Administer over 15 Minutes, 100 mL [facility] Dose Unknown 2021-0 4-08 00:00: 00 No Dose Unknown 2021-0 4-08 00:00: 00 No Prozac 20 mg capsule 2021-0 3-21 00:00: 00 No 1mg Prozac 20 mg capsule 2021-0 3-21 00:00: 00 No 1mg Dose Unknown 2021-0 3-16 00:00: 00 No Dose Unknown 2021-0 3-16 00:00: 00 No Dose Unknown 2022-0 3-15 00:00: 00 No Dose Unknown 2021-0 3-15 00:00: 00 No Dose Unknown 2021-0 3-14 00:00: 00 No Dose Unknown 2021-0 3-14 00:00: 00 No hydroxyzine HCl 50 mg tablet 2021-0 3-09 00:00: 00 No 1mg Prozac 20 mg capsule 2-0 3-09 00:00: 00 No 1mg hydroxyzine HCl 50 mg tablet 2021-0 3-09 00:00: 00 No 1mg Prozac 20 mg capsule 2021-0 3-09 00:00: 00 No 1mg Dose Unknown 2021-0 3-06 00:00: 00 No Dose Unknown 2022-0 [...] 150 mg 24 hr tablet, extended release 2021-1 2-30 00:00: 00 No 1mg Dose Unknown 2020-07 [...] y
Durat ion of Therapy: 7 days [facility] morpHINE injection 4 mg 03-17 01:58: 00 03-17 02:13 :00 No 4mg 4 mg, Slow IV Push, ONCE, 1 dose, 03/16/21 at 2100, STAT [facility] ondansetron (ZOFRAN (PF)) injection 4 mg 03-17 01:58: 00 03-17 02:12 :00 No 4mg 4 mg, Slow IV Push, ONCE, 1 dose, 03/16/21 at 2100, MICHAEL [facility] ipratropium -albuteroL (DUONEB) 0.5 mg-3 mg(2.5 mg base)/3 mL nebulizer solution 3 mL 03-17 01:57: 00 03-17 02:15 :00 No 3mL 3 mL, Inhalation , ONCE, 1 dose, 03/16/21 at 2100, MICHAEL [facility] NaCl 0.9% (NS) IV infusion 1,000 mL 03-17 01:57: 00 03-17 03:07 :00 No 1000mL at 999 mL/hr, Intravenou s, ONCE, 1 dose, 03/16/21 at 2100, MICHAEL [facility] methylpredn isolone sod succ (SOLU-MEDRO L) injection 125 mg 03-17 01:57: 00 03-17 02:11 :00 No 125mg 125 mg, Slow IV Push, ONCE, 1 dose, 03/16/21 at 2100, STAT [facility] levoFLOXaci n 500 mg tablet 03-17 00:00: 00 03-24 04:59 :00 No [id number] 500mg Take 1 tablet by mouth daily for 6 days. [facility] predniSONE 10 mg tablet 03-17 00:00: 00 03-22 04:59 :00 No [id number] 30mg Take 3 tablets by mouth daily for 4 days. [facility] albuterol (VENTOLIN) inhaler 4 Puff 03-15 01:45: 00 03-15 00:44 :00 No [id number] 4{puff} 4 Puff, Inhalation , ONCE, 1 dose, Arpita 03/14/21 at 2044, Routine [facility] dexamethaso ne (DECADRON) injection 10 mg 03-15 01:45: 00 03-15 00:45 :00 No [id number] 10mg 10 mg, Intramuscu lar, ONCE, 1 dose, Arpita 03/14/21 at 2044, Routine [facility] albuterol 2.5 mg /3 mL (0.083 %) nebulizer solution 03-15 00:00: 00 Yes [id number] 2.5mg Inhale 3 mL every 4 (four) hours as needed for Wheezing or Shortness of Breath. [facility] levETIRAcet am (KEPPRA) in NACL (ISO-OS) 1,000 mg/100 mL RTU 02-19 20:15: 00 02-19 19:30 :00 No 1000mg 1,000 mg, IV Infusion, ONCE, 1 dose, 02/19/21 at 1515, Administer over 15 Minutes, 100 mL [facility] levetiracet am (KEPPRA ORAL) 02-19 19:45: 33 Yes Take by mouth. [facility] LISINOPRIL- HYDROCHLORO THIAZIDE ORAL 02-19 19:41: 15 02-19 00:00 :00 No Take by mouth. [facility] dicyclomine (BENTYL) injection 20 mg 02-19 19:15: 00 02-19 19:04 :00 No 20mg 20 mg, Intramuscu lar, ONCE, 1 dose, 02/19/21 at 1415, Routine [facility] proMETHazin e (PHENERGAN) 25 mg in NaCl 0.9% (NS) 50 mL piggyback 02-19 19:15: 00 02-19 19:03 :00 No 25mg 25 mg, IV Piggyback, ONCE, 1 dose, 02/19/21 at 1415, 50 mL [facility] morpHINE injection 4 mg 02-19 17:15: 00 02-19 17:05 :00 No 4mg 4 mg, Slow IV Push, ONCE, 1 dose, 02/19/21 at 1215, STAT [facility] NaCl 0.9% (NS) bolus infusion 1,000 mL 02-19 17:15: 00 02-19 19:04 :00 No 1000mL at 999 mL/hr, 1,000 mL, IV Infusion, ONCE, 1 dose, 02/19/21 at 1215, STAT [facility] ondansetron (ZOFRAN (PF)) injection 4 mg 02-19 17:00: 00 02-19 15:59 :00 No 4mg 4 mg, Slow IV Push, ONCE, 1 dose, 02/19/21 at 1200, MICHAEL [facility] iopamidol (ISOVUE 370-500 mL) injection 100 mL 02-19 16:35: 00 02-19 16:45 :00 No [id number] 100mL 100 mL, Intravenou s, ONCE, 1 dose, Thu02/19/21 at 1145, Routine [facility] levetiracet am (KEPPRA ORAL) 02-19 14:45: 33 Yes Take by mouth. [facility] proMETHazin e 25 mg tablet 02-19 00:00: 00 Yes [id number] 25mg Take 1 tablet by mouth every 6 (six) hours as needed for Nausea and Vomiting (N/V). [facility] dicyclomine 20 mg tablet 02-19 00:00: 00 Yes [id number] 20mg Take 1 tablet by mouth 4 (four) times daily as needed for Abdominal pain. [facility] ZONISAMIDE 100 mg capsule 11-15 00:00: 00 02-19 00:00 :00 No TAKE 1 CAPSULE BY MOUTH TWICE A DAY [facility] ondansetron (ZOFRAN) 4 mg tablet 02-09 20:05: 01 Yes 4mg Take 4 mg by mouth every 8 (eight) hours as needed. [facility] pantoprazol e (PROTONIX) 40 mg EC tablet 02-09 20:05: 01 Yes 40mg Take 40 mg by mouth daily. [facility] LISINOPRIL- HYDROCHLORO THIAZIDE ORAL 02-09 20:05: 01 Yes Take by mouth. [facility] lisinopril- hydrochloro thiazide 20-12.5 mg per tablet 02-09 20:03: 30 Yes 1{tbl} Take 1 tablet by mouth daily. [facility] omega-3 fatty acids-vitam in E (FISH OIL) 1,000 mg capsule 02-09 19:59: 52 Yes 1g Take 1 g by mouth daily. [facility] MULTIVITAMI N ORAL 02-09 19:58: 14 Yes 1{tbl} Take 1 Tab by mouth daily. [facility] loratadine (CLARITIN LIQUI-GEL) 10 mg capsule 02-09 19:58: 14 Yes Take by mouth daily. [facility] ondansetron (ZOFRAN) 4 mg tablet 02-09 15:05: 01 Yes 4mg Take 4 mg by mouth every 8 (eight) hours as needed. [facility] pantoprazol e (PROTONIX) 40 mg EC tablet 02-09 15:05: 01 Yes 40mg Take 40 mg by mouth daily. [facility] lisinopril- hydrochloro thiazide 20-12.5 mg per tablet 02-09 15:03: 30 Yes 1{tbl} Take 1 tablet by mouth daily. [facility] omega-3 fatty acids-vitam in E (FISH OIL) 1,000 mg capsule 02-09 14:59: 52 Yes 1g Take 1 g by mouth daily. [facility] MULTIVITAMI N ORAL 02-09 14:58: 14 Yes 1{tbl} Take 1 Tab by mouth daily. [facility] loratadine (CLARITIN LIQUI-GEL) 10 mg capsule 02-09 14:58: 14 Yes Take by mouth daily. [facility] proMETHazin e (PHENERGAN) 25 mg tablet 11-20 00:00: 00 02-19 00:00 :00 No 25mg Take 1 tablet by mouth every 6 (six) hours as needed for Nausea and Vomiting (N/V). [facility] carvedilol (COREG) 6.25 mg tablet 09-19 00:00: 00 Yes 6.25mg Take 1 Tab by mouth 2 (two) times daily with meals. [facility] amLODIPine (NORVASC) 10 mg tablet 09-19 00:00: 00 Yes 10mg Take 1 Tab by mouth daily. [facility] lisinopril (PRINIVIL,Z ESTRIL) 40 mg tablet 09-19 00:00: 00 Yes 40mg Take 1 Tab by mouth daily. [facility] Immunizations Ordered Immunization Name Filled Immunization Name Date Status Comments Source SARS-COV-2 COVID-19 PFIZER BA-SUCROSE VACCINE (ROSE TOP) 2022-02-19 00:00:00 Completed [facility] SARS-COV-2 COVID-19 PFIZER BA-SUCROSE VACCINE (ROSE TOP) 2022-02-19 00:00:00 Completed [facility] SARS-COV-2 COVID-19 PFIZER BA-SUCROSE VACCINE (ROSE TOP) 2022-02-19 00:00:00 Completed [facility] SARS-COV-2 COVID-19 PFIZER BA-SUCROSE VACCINE (ROSE TOP) 2022-02-19 00:00:00 Completed [facility] SARS-COV-2 COVID-19 PFIZER BA-SUCROSE VACCINE (ROSE TOP) 2022-02-19 00:00:00 Completed [facility] SARS-COV-2 COVID-19 PFIZER BA-SUCROSE VACCINE (ROSE TOP) 2022-02-19 00:00:00 Completed [facility] SARS-COV-2 COVID-19 PFIZER BA-SUCROSE VACCINE (ROSE TOP) 2022-02-19 00:00:00 Completed [facility] SARS-COV-2 COVID-19 PFIZER BA-SUCROSE VACCINE (ROSE TOP) 2022-02-19 00:00:00 Completed [facility] SARS-COV-2 COVID-19 PFIZER BA-SUCROSE VACCINE (ROSE TOP) 2022-02-19 00:00:00 Completed [facility] SARS-COV-2 COVID-19 PFIZER VACCINE 2021-05-24 00:00:00 Completed [facility] SARS-COV-2 COVID-19 PFIZER VACCINE 2021-05-24 00:00:00 Completed [facility] SARS-COV-2 COVID-19 PFIZER VACCINE 2021-05-24 00:00:00 Completed [facility] SARS-COV-2 COVID-19 PFIZER VACCINE 2021-05-24 00:00:00 Completed [facility] SARS-COV-2 COVID-19 PFIZER VACCINE 2021-05-24 00:00:00 Completed [facility] SARS-COV-2 COVID-19 PFIZER VACCINE 2021-05-24 00:00:00 Completed [facility] SARS-COV-2 COVID-19 PFIZER VACCINE 2021-05-24 00:00:00 Completed [facility] SARS-COV-2 COVID-19 PFIZER VACCINE 2021-05-24 00:00:00 Completed [facility] SARS-COV-2 COVID-19 PFIZER VACCINE 2021-05-24 00:00:00 Completed [facility] SARS-COV-2 COVID-19 PFIZER VACCINE 2021-05-24 00:00:00 Completed [facility] SARS-COV-2 COVID-19 PFIZER VACCINE 2021-05-24 00:00:00 Completed [facility] SARS-COV-2 COVID-19 PFIZER VACCINE 2021-05-03 00:00:00 Completed [facility] SARS-COV-2 COVID-19 PFIZER VACCINE 2021-05-03 00:00:00 Completed [facility] SARS-COV-2 COVID-19 PFIZER VACCINE 2021-05-03 00:00:00 Completed [facility] SARS-COV-2 COVID-19 PFIZER VACCINE 2021-05-03 00:00:00 Completed [facility] SARS-COV-2 COVID-19 PFIZER VACCINE 2021-05-03 00:00:00 Completed [facility] SARS-COV-2 COVID-19 PFIZER VACCINE 2021-05-03 00:00:00 Completed [facility] SARS-COV-2 COVID-19 PFIZER VACCINE 2021-05-03 00:00:00 Completed [facility] SARS-COV-2 COVID-19 PFIZER VACCINE 2021-05-03 00:00:00 Completed [facility] SARS-COV-2 COVID-19 PFIZER VACCINE 2021-05-03 00:00:00 Completed [facility] SARS-COV-2 COVID-19 PFIZER VACCINE 2021-05-03 00:00:00 Completed [facility] SARS-COV-2 COVID-19 PFIZER VACCINE 2021-05-03 00:00:00 Completed [facility] SARS-COV-2 COVID-19 PFIZER VACCINE 2021-05-03 00:00:00 Completed [facility] SARS-COV-2 COVID-19 PFIZER VACCINE Unknown Completed [facility] SARS-COV-2 COVID-19 PFIZER VACCINE Unknown Completed [facility] SARS-COV-2 COVID-19 PFIZER BA-SUCROSE VACCINE (ROSE TOP) Unknown Completed [facility] Vital Signs Vital Name Observation Time Observation Value Comments S ource Systolic blood pressure 2023-09-11 17:27:00 122 mm[Hg] Cynthia Seybo ld - External Diastolic blood pressure 2023-09-11 17:27:00 74 mm[Hg] Cynthia Seybo ld - External Heart rate 2023-09-11 17:27:00 80 /min Kimani y Seybold - External Body temperature 2023-09-11 17:27:00 36.72 Radha Cynthia Seybold - External Respiratory rate 2023-09-11 17:27:00 18 /min Cynthia Seybold - External Body height 2023-09-11 17:27:00 159.4 cm Esthela ey Seybold - External Body weight 2023-09-11 17:27:00 80.74 kg Esthela ey Seybold - External BMI 2023-09-11 17:27:00 31.78 kg/m2 Esthela ey Seybold - External Oxygen saturation in Arterial blood by Pulse oximetry 2023-09-11 17:27:00 97 /min Cynthia Bedoyao ld - External Systolic blood pressure 2023-08-12 21:00:00 130 mm[Hg] [facility] Diastolic blood pressure 2023-08-12 21:00:00 85 mm[Hg] [facility] Heart rate 2023-08-12 21:00:00 106 /min [facility] Respiratory rate 2023-08-12 21:00:00 14 /min [facility] Oxygen saturation in Arterial blood by Pulse oximetry 2023-08-12 21:00:00 95 /min [facility] Body temperature 2023-08-12 20:34:54 37.22 Radha [facility] Body height 2023-08-12 19:47:00 157.5 cm [facility] Body weight 2023-08-12 19:47:00 81.647 kg [facility] BMI 2023-08-12 19:47:00 32.92 kg/m2 [facility] WEIGHT 2023-06-16 05:26:00 86.047 kg HEIGHT [...] Systolic blood pressure 2022-12-11 20:00:00 142 mm[Hg] [facility] Diastolic blood pressure 2022-12-11 20:00:00 90 mm[Hg] [facility] Respiratory rate 2022-12-11 20:00:00 24 /min [facility] Heart rate 2022-12-11 18:00:00 101 /min [facility] Oxygen saturation in Arterial blood by Pulse oximetry 2022-12-11 18:00:00 93 /min [facility] BMI 2022-12-11 13:55:00 35.43 kg/m2 [facility] Body temperature 2022-12-11 13:55:00 37.22 Radha [facility] Body weight 2022-12-11 13:55:00 90.719 kg [facility] Systolic blood pressure 2022-11-18 05:34:00 152 mm[Hg] [facility] Diastolic blood pressure 2022-11-18 05:34:00 98 mm[Hg] [facility] Heart rate 2022-11-18 05:34:00 88 /min [facility] Respiratory rate 2022-11-18 05:34:00 18 /min [facility] Oxygen saturation in Arterial blood by Pulse oximetry 2022-11-18 05:34:00 97 /min [facility] Body temperature 2022-11-17 22:28:00 37.06 Radha [facility] Body height 2022-11-17 22:28:00 160 cm [facility] Body weight 2022-11-17 22:28:00 99.791 kg [facility] BMI 2022-11-17 22:28:00 38.97 kg/m2 [facility] Heart rate 2022-08-02 02:02:00 108 /min [facility] Respiratory rate 2022-08-02 02:02:00 28 /min [facility] Oxygen saturation in Arterial blood by Pulse oximetry 2022-08-02 02:02:00 97 /min [facility] Body temperature 2022-08-02 01:00:00 36.44 Radha [facility] Systolic blood pressure 2022-08-01 23:29:00 145 mm[Hg] [facility] Diastolic blood pressure 2022-08-01 23:29:00 103 mm[Hg] [facility] Body weight 2022-08-01 09:16:00 97.977 kg [facility] BMI 2022-08-01 09:16:00 38.26 kg/m2 [facility] Body height 2022-07-31 21:54:00 160 cm [facility] Systolic blood pressure 2022-05-08 16:40:00 146 mm[Hg] [facility] Diastolic blood pressure 2022-05-08 16:40:00 96 mm[Hg] [facility] Heart rate 2022-05-08 16:40:00 112 /min [facility] Body temperature 2022-05-08 16:40:00 36.78 Radha [facility] Respiratory rate 2022-05-08 16:40:00 18 /min [facility] Oxygen saturation in Arterial blood by Pulse oximetry 2022-05-08 16:40:00 94 /min [facility] Body height 2022-05-05 23:44:00 160 cm [facility] Body weight 2022-05-05 23:37:00 81.647 kg [facility] BMI 2022-05-05 23:37:00 31.89 kg/m2 [facility] Systolic blood pressure 2022-04-15 18:52:00 104 mm[Hg] [facility] Diastolic blood pressure 2022-04-15 18:52:00 82 mm[Hg] [facility] Heart rate 2022-04-15 18:52:00 114 /min [facility] Oxygen saturation in Arterial blood by Pulse oximetry 2022-04-15 18:52:00 98 /min [facility] Body temperature 2022-04-15 16:14:00 36.28 Radha [facility] Respiratory rate 2022-04-15 16:14:00 17 /min [facility] Body height 2022-04-13 21:08:00 160 cm [facility] Body weight 2022-04-13 21:08:00 91.173 kg [facility] BMI 2022-04-13 21:08:00 35.61 kg/m2 [facility] Systolic blood pressure 2021-11-23 21:30:00 132 mm[Hg] [facility] Diastolic blood pressure 2021-11-23 21:30:00 76 mm[Hg] [facility] Heart rate 2021-11-23 21:30:00 95 /min [facility] Respiratory rate 2021-11-23 21:30:00 13 /min [facility] Oxygen saturation in Arterial blood by Pulse oximetry 2021-11-23 21:30:00 97 /min [facility] Body temperature 2021-11-23 20:15:00 37.56 Radha [facility] Systolic blood pressure 2021-03-17 03:00:00 117 mm[Hg] [facility] Diastolic blood pressure 2021-03-17 03:00:00 76 mm[Hg] [facility] Heart rate 2021-03-17 03:00:00 104 /min [facility] Respiratory rate 2021-03-17 03:00:00 28 /min [facility] Oxygen saturation in Arterial blood by Pulse oximetry 2021-03-17 03:00:00 96 /min [facility] Body temperature 2021-03-17 00:39:00 37.11 Radha [facility] Body height 2021-03-17 00:39:00 160 cm [facility] Body weight 2021-03-17 00:39:00 58.968 kg [facility] BMI 2021-03-17 00:39:00 23.03 kg/m2 [facility] Systolic blood pressure 2021-03-15 00:14:00 149 mm[Hg] [facility] Diastolic blood pressure 2021-03-15 00:14:00 78 mm[Hg] [facility] Heart rate 2021-03-15 00:14:00 100 /min [facility] Body temperature 2021-03-15 00:14:00 37.33 Radha [facility] Respiratory rate 2021-03-15 00:14:00 24 /min [facility] Body height 2021-03-15 00:14:00 160 cm [facility] Body weight 2021-03-15 00:14:00 58.968 kg [facility] BMI 2021-03-15 00:14:00 23.03 kg/m2 [facility] Oxygen saturation in Arterial blood by Pulse oximetry 2021-03-15 00:14:00 98 /min [facility] Systolic blood pressure 2021-02-19 18:00:00 131 mm[Hg] [facility] Diastolic blood pressure 2021-02-19 18:00:00 80 mm[Hg] [facility] Heart rate 2021-02-19 18:00:00 83 /min [facility] Respiratory rate 2021-02-19 18:00:00 18 /min [facility] Oxygen saturation in Arterial blood by Pulse oximetry 2021-02-19 18:00:00 100 /min [facility] Body temperature 2021-02-19 15:47:00 37 Radha [facility] Body height 2021-02-19 15:47:00 160 cm [facility] Body weight 2021-02-19 15:47:00 58.968 kg [facility] BMI 2021-02-19 15:47:00 23.03 kg/m2 [facility] Heart rate 2023-09-08 08:54:00 118 /min [facility] Respiratory rate 2023-09-08 08:54:00 21 /min [facility] Oxygen saturation in Arterial blood by Pulse oximetry 2023-09-08 08:54:00 100 /min [facility] Systolic blood pressure 2023-09-08 08:32:00 110 mm[Hg] [facility] Diastolic blood pressure 2023-09-08 08:32:00 77 mm[Hg] [facility] Body temperature 2023-09-08 08:32:00 36.06 Radha [facility] Body height 2023-09-04 00:58:00 157.5 cm [facility] Body weight 2023-09-04 00:58:00 80 kg [facility] BMI 2023-09-04 00:58:00 32.26 kg/m2 [facility] Heart rate 2023-06-16 17:00:00 108 /min [facility] Systolic blood pressure 2023-06-16 15:31:00 101 mm[Hg] [facility] Diastolic blood pressure 2023-06-16 15:31:00 81 mm[Hg] [facility] Body temperature 2023-06-16 15:31:00 36.61 Radha [facility] Respiratory rate 2023-06-16 15:31:00 18 /min [facility] Oxygen saturation in Arterial blood by Pulse oximetry 2023-06-16 15:31:00 94 /min [facility] Body weight 2023-06-16 05:26:00 86.047 kg [facility] BMI 2023-06-16 05:26:00 33.60 kg/m2 [facility] Body height 2023-06-13 04:00:00 160 cm [facility] Systolic blood pressure 2023-06-04 13:02:00 93 mm[Hg] [facility] Diastolic blood pressure 2023-06-04 13:02:00 57 mm[Hg] [facility] Heart rate 2023-06-04 13:02:00 101 /min [facility] Respiratory rate 2023-06-04 13:02:00 22 /min [facility] Oxygen saturation in Arterial blood by Pulse oximetry 2023-06-04 13:02:00 95 /min room air [facility] Body temperature 2023-06-04 11:46:00 35.28 Radha [facility] Systolic blood pressure 2023-05-28 16:00:00 154 mm[Hg] [facility] Diastolic blood pressure 2023-05-28 16:00:00 82 mm[Hg] [facility] Heart rate 2023-05-28 16:00:00 89 /min [facility] Body temperature 2023-05-28 16:00:00 36.67 Radha [facility] Respiratory rate 2023-05-28 16:00:00 16 /min [facility] Oxygen saturation in Arterial blood by Pulse oximetry 2023-05-28 16:00:00 97 /min [facility] Body height 2023-05-28 07:00:00 157.5 cm [facility] Body weight 2023-05-28 07:00:00 87.544 kg [facility] BMI 2023-05-28 07:00:00 35.30 kg/m2 [facility] Body height 2023-05-26 09:12:00 157.5 cm [facility] Body weight 2023-05-26 09:12:00 87.091 kg [facility] BMI 2023-05-26 09:12:00 35.12 kg/m2 [facility] Respiratory rate 2023-04-02 16:35:00 18 /min [facility] Oxygen saturation in Arterial blood by Pulse oximetry 2023-04-02 16:35:00 98 /min [facility] Systolic blood pressure 2023-04-02 12:00:00 147 mm[Hg] [facility] Diastolic blood pressure 2023-04-02 12:00:00 97 mm[Hg] [facility] Heart rate 2023-04-02 12:00:00 106 /min [facility] Body temperature 2023-04-02 12:00:00 36.28 Radha [facility] Body height 2023-03-30 02:14:00 157.5 cm [facility] Body weight 2023-03-30 02:14:00 92.08 kg [facility] BMI 2023-03-30 02:14:00 37.13 kg/m2 [facility] Respiratory rate 2022-08-03 14:40:00 18 /min [facility] Systolic blood pressure 2022-08-03 12:13:00 112 mm[Hg] [facility] Diastolic blood pressure 2022-08-03 12:13:00 77 mm[Hg] [facility] Heart rate 2022-08-03 12:13:00 115 /min [facility] Oxygen saturation in Arterial blood by Pulse oximetry 2022-08-03 12:13:00 93 /min [facility] Body temperature 2022-08-03 12:00:00 36.83 Radha [facility] Body height 2022-08-02 21:52:00 160.2 cm [facility] Body weight 2022-08-02 21:52:00 95 kg [facility] BMI 2022-08-02 21:52:00 37.02 kg/m2 [facility] BP Systolic 2022-07-24 13:31:00 136 mm[Hg] [...] Clinician Source POCT-GLUCOSE METER 2023-09-08 08:40:00 Bud [facility] CBC W/PLT COUNT & AUTO DIFFERENTIAL 2023-09-08 04:16:00 Joshua [facility] BASIC METABOLIC PANEL 2023-09-08 04:16:00 Joshua [facility] MAGNESIUM 2023-09-08 04:16:00 Joshua [facility] PHOSPHORUS 2023-09-08 04:16:00 Joshua [facility] CBC W/PLT COUNT & AUTO DIFFERENTIAL 2023-09-08 04:16:00 Joshua [facility] POCT-GLUCOSE METER 2023-09-07 21:29:00 Bud [facility] XR KNEE 3 VIEWS LEFT 2023-09-07 19:21:02 Bud [facility] VENOUS DOPPLER LEGS BILATERAL 2023-09-07 12:45:00 Joshua [facility] CBC W/PLT COUNT & AUTO DIFFERENTIAL 2023-09-07 03:17:00 Joshua [facility] BASIC METABOLIC PANEL 2023-09-07 03:17:00 Joshua [facility] MAGNESIUM 2023-09-07 03:17:00 Joshua [facility] PHOSPHORUS 2023-09-07 03:17:00 Joshua [facility] CBC W/PLT COUNT & AUTO DIFFERENTIAL 2023-09-07 03:17:00 Joshua [facility] POCT-GLUCOSE METER 2023-09-06 21:17:00 Bud [facility] POCT-GLUCOSE METER 2023-09-06 18:37:00 Bud [facility] POCT-GLUCOSE METER 2023-09-06 13:16:00 Bud [facility] POCT-GLUCOSE METER 2023-09-06 08:21:00 Bud [facility] CBC W/PLT COUNT & AUTO DIFFERENTIAL 2023-09-06 04:49:00 Joshua [facility] BASIC METABOLIC PANEL 2023-09-06 04:49:00 Joshua [facility] MAGNESIUM 2023-09-06 04:49:00 Joshua [facility] PHOSPHORUS 2023-09-06 04:49:00 Joshua [facility] CBC W/PLT COUNT & AUTO DIFFERENTIAL 2023-09-06 04:49:00 Joshua [facility] POCT-GLUCOSE METER 2023-09-05 [facility] 2023-09-05 11:25:07 Sandi Aleman [facility] POCT-GLUCOSE METER 2023-09-05 08:10:00 Bud [facility] CBC W/PLT COUNT & AUTO DIFFERENTIAL 2023-09-05 04:44:00 Joshua [facility] BASIC METABOLIC PANEL 2023-09-05 04:44:00 Joshua [facility] MAGNESIUM 2023-09-05 04:44:00 Joshua [facility] PHOSPHORUS 2023-09-05 04:44:00 Joshua [facility] POCT-GLUCOSE METER 2023-09-05 04:44:00 Lisandra [facility] CBC W/PLT COUNT & AUTO DIFFERENTIAL 2023-09-05 04:44:00 Joshua [facility] POCT-GLUCOSE METER 2023-09-04 21:38:00 Lisandra [facility] POCT-GLUCOSE METER 2023-09-04 [facility]RSV RT-PCR 2023-09-04 11:25:00 Jovani Mcnally [facility] POCT-GLUCOSE METER 2023-09-04 10:53:00 Ra Sabashul [facility] [place] POCT-GLUCOSE METER 2023-09-04 08:04:00 Sabas Pankaj [facility] [place] PROCALCITONIN 2023-09-04 06:56:00 [facility] IRON, TIBC, % SAT. (WITHOUT FERRITIN) 2023-09-04 06:56:00 [facility] FERRITIN 2023-09-04 06:56:00 [facility] BLOOD CULTURE 2023-09-04 06:37:00 Randall [facility] MR LUMBAR SPINE WITHOUT IV CONTRAST 2023-09-04 05:47:25 Postsantana [facility] MR THORACIC SPINE WITHOUT IV CONTRAST 2023-09-04 04:53:00 Melvi [facility] MR CERVICAL SPINE WITHOUT IV CONTRAST 2023-09-04 04:18:00 Melvi [facility] CT THORACIC SPINE WITHOUT IV CONTRAST 2023-09-04 03:08:00 Randall [facility] CT LUMBAR SPINE WITHOUT IV CONTRAST 2023-09-04 03:08:00 Randall [facility] LACTIC ACID, VENOUS 2023-09-04 01:42:00 Makayla [facility] TYPE AND SCREEN, AUTOMATED 2023-09-04 01:42:00 Makayla [facility] CBC W/PLT COUNT & AUTO DIFFERENTIAL 2023-09-04 00:51:00 Melvi [facility] COMPREHENSIVE METABOLIC PANEL 2023-09-04 00:51:00 Melvi [facility] MAGNESIUM 2023-09-04 00:51:00 Melvi [facility] PHOSPHORUS 2023-09-04 00:51:00 Melvi [facility] PROTHROMBIN TIME/INR 2023-09-04 00:51:00 Chico Ogden [facility] APTT 2023-09-04 00:51:00 Chico Ogden [facility] B-TYPE NATRIURETIC FACTOR (BNP) 2023-09-04 00:51:00 Chico Ogden [facility] URINALYSIS WITHOUT MICROSCOPIC 2023-09-04 00:51:00 Chico Ogden [facility] RAPID DRUG SCREEN, URINE 2023-09-04 00:51:00 Melvi Ch[facility] D-DIMER 2023-09-04 00:51:00 London Loyola [facility] FIBRINOGEN 2023-09-04 00:51:00 RandallJorge ray [facility] CBC W/PLT COUNT & AUTO DIFFERENTIAL 2023-09-04 00:51:00 Chico Ogden [facility] EKG-SCANNED 2023-09-04 00:00:00 Provider, Default Scanning [facility] LACTIC ACID WHOLE BLOOD 2023-08-12 20:31:00 Brian Bryan [facility] COMP. METABOLIC PANEL (60386) 2023-08-12 20:29:00 Brian Bryan [facility] CBC WITH DIFF 2023-08-12 20:29:00 Brian Bryan [facility] CONSENT/REFUSAL FOR DIAGNOSI S AND TREATMENT 2023-08-12 19:43:16 Doctor Unassigned, [place] [facility] TRANSESOPHAGEAL ECHO 2023-06-16 11:05:00 Aydee Go [facility] T SPOT TB 2023-06-15 04:51[facility]00 [facility]-GLUCAN WITH REFLEX TO TITER 2023-06-15 04:51:00 [facility] ASPERGILLUS GALACTOMANNAN ANTIGEN 2023-06-15 04:51:00 Rossy [facility] VANCOMYCIN LEVEL, TROUGH 2023-06-15 04:51:00 Kaylene Mendosa [facility] T-SPOT(R).TB (QUEST) 2023-06-15 04:27:00 System, Provider Not In [facility] T-SPOT(R).TB ([facility]) 2023-06-15 04:27:00 System, Provider Not In [facility] ECHO W CONTRAST & DOPPLER 2023-06-14 09:22:00 [facility] HEMOGLOBIN A1C 2023-06-14 04:08:00 Cara Burgess [facility] CBC (HEMOGRAM ONLY) 2023-06-14 04:08:00 [facility] BASIC METABOLIC PANEL 2023-06-14 04:08:00 [facility] CRYPTOCOCCAL ANTIGEN 2023-06-13 17:21:00 Lauren Blair [facility] HC LAB HIV-1 AG W/HIV-1&2 AB 2023-06-13 17:21:00 Lauren Blair [facility] VENOUS DOPPLER ARM, LEFT 2023-06-13 17:20:00 Cara Burgess [facility] LEGIONELLA ANTIGEN, URINE 2023-06-13 17:00:00 [facility] SPUTUM CULTURE + GRAM STAIN 2023-06-13 14:33:00 [facility] MR LUMBAR SPINE WITH & WITHOUT IV CONTRAST 2023-06-13 13:03:47 Burt Nelson [facility] ECG 12-LEAD 2023-06-13 11:47:02 [facility] ECG 12-LEAD 2023-06-13 11:47:02 Unknown, Hl7 Doctor [facility] MRSA SCREEN 2023-06-13 09:19:00 [facility] CBC W/PLT COUNT & AUTO DIFFERENTIAL 2023-06-13 06:03:00 Cara Burgess [facility] COMPREHENSIVE METABOLIC PANEL 2023-06-13 06:03:00 Cara Burgess [facility] PROTHROMBIN TIME/INR 2023-06-13 06:03:00 Cara Burgess [facility] CREATINE KINASE (CK) 2023-06-13 06:03:00 Torreymike Nazariocory [facility] CBC W/PLT COUNT & AUTO DIFFERENTIAL 2023-06-13 06:03:00 Cara Burgess [facility] BLOOD CULTURE 2023-06-13 06:02:00 Cara Burgess [facility] CBC W/PLT COUNT & AUTO DIFFERENTIAL 2023-06-02 04:41:00 Sunil Chu [facility] BASIC METABOLIC PANEL 2023-06-02 04:41:00 Sunil Chu [facility] MAGNESIUM 2023-06-02 04:41:00 Sunil Chu [facility] PHOSPHORUS 2023-06-02 04:41:00 Sunil Chu [facility] CBC W/PLT COUNT & AUTO DIFFERENTIAL 2023-06-02 04:41:00 Sunil Chu Nimo [facility] XR SPINE LUMBAR 1 VIEW 2023-06-01 10:31:00 MakawaoAdam [facility] XR SPINE LUMBAR 1 VIEW 2023-06-01 09:46:00 MakawaoAdam [facility] LAMINECTOMY, SPINE, LUMBAR 2023-06-01 09:10:00 MakawaoAdam [facility] PROCEDURE W/ C-ARM 2023-06-01 09:10:00 JoseAdam [facility] LAMINECTOMY, SPINE, LUMBAR 2023-06-01 07:30:00 JoseAdam [facility] PROCEDURE W/ C-ARM 2023-06-01 07:30:00 MakawaoAdam [facility] SCREEN, URINE 2023-06-01 04:33:00 MakawaoAdam [facility] BASIC METABOLIC PANEL 2023-05-31 22:55:00 Dallas Gomez [facility] CBC W/PLT COUNT & AUTO DIFFERENTIAL 2023-05-31 22:55:00 Dallas Gomez [facility] PT/APTT 2023-05-31 22:55:00 Dallas Gomez [facility] CBC W/PLT COUNT & AUTO DIFFERENTIAL 2023-05-31 22:55:00 Dallas Gomez [facility] CT NECK SOFT TISSUE WITHOUT IV CONTRAST 2023-05-31 09:39:30 [facility] TYPE AND SCREEN, AUTOMATED 2023-05-31 09:13:00 [facility] BASIC METABOLIC PANEL 2023-05-29 06:43:00 [facility] CBC W/PLT COUNT & AUTO DIFFERENTIAL 2023-05-29 06:43:00 [facility] CBC W/PLT COUNT & AUTO DIFFERENTIAL 2023-05-29 06:43:00 [facility] XR SPINE CERVICAL 2 OR 3 VIEWS 2023-05-28 18:57:00 [facility] [place] FLUORO NON-SPECIFIC UP TO 1 HOUR 2023-05-28 10:48:00 Jose [facility] [place] FLUORO NON-SPECIFIC UP TO 1 HOUR 2023-05-28 10:07:00 Jose [facility] DISCECTOMY, SPINE, CERVICAL, ANTERIOR APPROACH, WITH FUSION 2023-05-28 08:15:00 Jose [facility] INSERTION, HARDWARE, SPINAL 2023-05-28 08:15:00 Jose [facility] PROCEDURE, ALLOGRAFT, FOR SPINE SURGERY 2023-05-28 08:15:00 Jose [facility] AUTOGRAFT FOR SPINE SURGERY 2023-05-28 08:15:00 Jose [facility] PROCEDURE W/ C-ARM 2023-05-28 08:15:00 Jose [facility] NEUROPHYSIOLOGIC MONITORING, INTRAOPERATIVE 2023-05-28 08:15:00 Jose [facility] PROCEDURE, USING OPERATING MICROSCOPE 2023-05-28 08:15:00 Adam Garcia [facility] HCG, QUANTITATIVE, 2023-05-28 07:42:00 RamyaYue jain Dumont [facility] TYPE AND SCREEN, AUTOMATED 2023-05-28 07:42:00 Ketan Scruggs [facility] XR CHEST 1 VIEW PORTABLE / BEDSIDE 2023-04-01 15:32:16 Thomas Lozoya [facility] B-TYPE NATRIURETIC FACTOR (BNP) 2023-04-01 13:32:00 Thomas Lozoya [facility] ECHO W CONTRAST & DOPPLER 2023-03-31 20:18:37 Jasen [facility] MR CERVICAL SPINE WITHOUT IV CONTRAST 2023-03-31 09:25:00 Selin Lewis [facility] CBC (HEMOGRAM ONLY) 2023-03-31 03:45:00 Jasen [facility] COMPREHENSIVE METABOLIC PANEL 2023-03-31 03:45:00 Jasen [facility] ARTERIAL DOPPLER LEGS BILATERAL 2023-03-30 [facility]/ [facility]OPPLER[facility] ONLY 2023-03-30 15:44:00 Jasen [facility] ECG 12-LEAD 2023-03-30 13:06:[facility] ECG 12-LEAD 2023-03-30 13:06:22 Unknown, Hl7 [facility] MR THORACIC SPINE WITHOUT IV CONTRAST 2023-03-30 12:29:58 Gloria Reyesjay [facility] MR LUMBAR SPINE WITHOUT IV CONTRAST 2023-03-30 11:58:00 Gloria Reyes [facility] EEG AWAKE AND DROWSY 2023-03-30 09:57:53 [facility] T[facility] 2023-03-30 09:06:00 Liudmila Smart [facility] URINALYSIS W/ REFLEX URINE CULTURE 2023-03-30 03:54:00 Gloria Reyes [facility] CBC (HEMOGRAM ONLY) 2023-03-30 03:52:00 Mariah Aldridge [facility] COMPREHENSIVE METABOLIC PANEL 2023-03-30 03:52:00 Jasen Mariah [facility] HEMOGLOBIN A1C 2023-03-30 03:52:00 Jasen Mariah [facility] PT/APTT 2023-03-30 03:52:00 Thomas Lozoya [facility] EKG-SCANNED 2023-03-29 00:00:00 Provider, Default Scanning [facility] CT HEAD WO CONTRAST 2022-12-11 18:36:49 Alfonso Alvarado [facility] URINE DRUG (IMMUNOASSAY) - COMPREHENSIVE DRUG SCREEN 2022-12-11 17:13:00 Alfonso Alvarado Lorelei [facility] URINALYSIS 2022-12-11 17:13:00 Alfonso Alvarado [facility] CT CHEST PULMONARY ANGIOGRAM 2022-12-11 16:26:39 Alfonso Alvarado [facility] MAGNESIUM 2022-12-11 14:57:00 Alfonso Alvarado [facility] COMP. METABOLIC PANEL ([id number]) 2022-12-11 14:57:00 Alfonso Alvarado Lorelei [facility] D-DIMER 2022-12-11 14:15:00 Alfonso Alvarado [facility] XR CHEST 1 VW 2022-12-11 14:10:26 Alfonso Alvarado [facility] TROPONIN I 2022-12-11 14:02:00 Alfonso Alvarado [facility] CBC WITH DIFF 2022-12-11 14:02:00 Alfonso Alvarado Lorelei [facility] N-TERMINAL PRO-BNP 2022-12-11 14:02:00 Alfonso Alvarado Lorelei [facility] HB ECG ROUTINE & RHYTHM STRIP 2022-12-11 14:01:08 Alfonso Alvarado Lorelei [facility] CONSENT/REFUSAL FOR DIAGNOSI S AND TREATMENT 2022-12-11 13:52:01 Doctor Unassigned, [place] [facility] ECG 12-LEAD 2022-08-03 05:03:32 Unknown, Hl7 Doctor [facility] ECG 12-LEAD 2022-08-03 05:03:32 Unknown, Hl7 [facility] LIPID PANEL 2022-08-02 21:14:00 [facility] TSH/FREE T4 IF INDICATED 2022-08-02 21:14:00 [facility] VITAMIN B12 2022-08-02 21:14:00 [facility] HEMOGLOBIN A1C 2022-08-02 21:14:00 [facility] COMPREHENSIVE METABOLIC PANEL 2022-08-02 21:14:00 [facility] CBC W/PLT COUNT & AUTO DIFFERENTIAL 2022-08-02 21:14:00 [facility] RPR 2022-08-02 21:14:00 [facility] HC LAB HIV-1 AG W/HIV-1&2 AB 2022-08-02 21:14:00 [facility] C-REACTIVE PROTEIN 2022-08-02 21:14:00 [facility] CBC W/PLT COUNT & AUTO DIFFERENTIAL 2022-08-02 21:14:00 [facility] EKG-SCANNED 2022-08-02 00:00:00 Provider, Default Scanning [facility] CT HEAD WO CONTRAST 2022-08-01 23:52:15 Lorenza Lowry [facility] GALV ONLY - INFLUENZA A B RS V PCR 2022-08-01 18:28:00 Letitia Chambers [facility] TRANSTHORACIC ECHO (TTE) COMPLETE W/ CONTRAST 2022-08-01 14:42:00 Kylee Montez [facility] MAGNESIUM 2022-08-01 10:42:00 Lorenza Lowry [facility] BASIC METABOLIC PANEL (NA, K , CL, CO2, GLUCOSE, BUN, CREATININE, CA) 2022-08-01 10:42:00 Lorenza Lowry [facility] CBC WITH DIFF 2022-08-01 10:42:00 Lorenza Lowry [facility] N-TERMINAL PRO-BNP 2022-08-01 10:42:00 Kylee Montez [facility] POCT GLUCOSE (AUTOMATED) 2022-08-01 06:56:00 Lorenza Lowry [facility] CRITICAL CARE 2022-07-31 22:31:36 [facility]-31 20:52[facility]00 [facility] URINE DRUG (IMMUNOASSAY) - COMPREHENSIVE DRUG SCREEN W/O REFLEX 2022-07-31 20:52:00 [facility]ST 1 VW 2022-07-31 18:45:17 [facility] LIPASE 2022-07-31 17:58:00 [facility] TROPONIN I 2022-07-31 17:58:00 [facility] COMP. METABOLIC PANEL ([id number]) 2022-07-31 17:58:00 [facility] CBC WITH DIFF 2022-07-31 17:58:00 [facility] PROTHROMBIN TIME / INR 2022-07-31 17:58:00 [facility] ACTIVATED PARTIAL THRMPLAS DAVID 2022-07-31 17:58:00 Al[facility] N-TERMINAL PRO-BNP 2022-07-31 17:58:00 [facility] ROUTINE & RHYTHM STRIP 2022-07-31 17:46:28 [facility] NOTICE OF PRIVACY PRACTICES 2022-07-31 17:35:38 Doctor Unassigned, [place] [facility] CONSENT/REFUSAL FOR DIAGNOSI S AND TREATMENT 2022-07-31 17:35:13 Doctor Unassigned, [place] [facility] PHOSPHORUS 2022-05-08 05:51:00 Azeem Meehan [facility] MAGNESIUM 2022-05-08 05:51:00 Azeem Meehan [facility] BASIC METABOLIC PANEL (NA, K , CL, CO2, GLUCOSE, BUN, CREATININE, CA) 2022-05-08 05:51:00 Shefali [facility] CBC WITH DIFF 2022-05-08 05:51:00 Shefali [facility] BASIC METABOLIC PANEL (NA, K , CL, CO2, GLUCOSE, BUN, CREATININE, CA) 2022-05-07 07:09:00 John Cintron [facility] CBC WITH DIFF 2022-05-07 07:09:00 John Cintron [facility] POCT GLUCOSE (AUTOMATED) 2022-05-07 01:16:00 Brandyn Ibrahim [facility] HB ABO GROUPING 2022-05-06 05:07:00 [facility] (NA, K , CL, CO2, GLUCOSE, BUN, CREATININE, CA) 2022-05-06 05:04:00 Shefali [facility] CBC WITH DIFF 2022-05-06 05:04:00 Shefali [facility] KEPPRA (LEVETIRACETAM) 2022-05-06 05:04:00 Shefali [facility] MR LUMBAR SPINE WO CONTRAST 2022-05-06 02:54:37 Ender Monet [facility] ELECTROENCEPHALOGRAM 2022-05-06 00:00:00 John Cintron [facility] BASIC METABOLIC PANEL (NA, K , CL, CO2, GLUCOSE, BUN, CREATININE, CA) 2022-05-05 07:57:00 Ismael Dunn [facility] CBC WITH DIFF 2022-05-05 07:57:00 Ismael Dunn [facility] PROTHROMBIN TIME / INR 2022-05-05 07:57:00 Ismael Dunn [facility] ACTIVATED PARTIAL THRMPLAS DAVID 2022-05-05 07:57:00 Ismael Dunn [facility] FIBRINOGEN 2022-05-05 07:57:00 Ismael Dunn [facility] EMERGENCY SERVICES AGREEMENT S AND AUTHORIZATIONS 2022-05-04 05:01:00 Doctor Unassigned, [facility] VITAMIN D, 25-OH 2022-04-15 16:53:00 Sen [place] [facility] MR THORACIC SPINE WO CONTRAST 2022-04-15 11:56:19 Harshil [facility] MR CERVICAL SPINE WO CONTRAST 2022-04-15 11:20:00 Harshil [facility] BASIC METABOLIC PANEL (NA, K , CL, CO2, GLUCOSE, BUN, CREATININE, CA) 2022-04-15 10:36:00 Charmaine Morataya [facility] TEST, URINE 2022-04-15 04:39:00 Harshil [facility] URINE DRUG (IMMUNOASSAY) - COMPREHENSIVE DRUG SCREEN 2022-04-15 04:39:00 Harshil [facility] URINALYSIS 2022-04-15 04:39:00 Harshil [facility] TRANSTHORACIC ECHO (TTE) COMPLETE W/ CONTRAST 2022-04-14 16:37:03 Harshil [facility] KEPPRA (LEVETIRACETAM) 2022-04-14 15:30:00 Harshil [facility] MAGNESIUM 2022-04-14 10:03:00 Harshil [facility] BASIC METABOLIC PANEL (NA, K , CL, CO2, GLUCOSE, BUN, CREATININE, CA) 2022-04-14 10:03:00 Harshil [facility] MR LUMBAR SPINE WO CONTRAST 2022-04-14 02:48:12 Harshil [facility] MR STROKE BRAIN WO CONTRAST 2022-04-14 02:29:[address] [facility] [address] STROKE ANGIOGRAM HEAD 2022-04-13 18:40:00 Sapna Vargas [facility] CT STROKE ANGIOGRAM NECK 2022-04-13 18:40:00 Sapna Vargas [facility] CT STROKE HEAD WO CONTRAST 2022-04-13 18:36:00 Spana Vargas [facility] TROPONIN I 2022-04-13 18:17:00 Sapna Vargas [facility] THYROID STIMULATING HORMONE 2022-04-13 18:17:00 Harshil Soumya [facility] BASIC METABOLIC PANEL (NA, K , CL, CO2, GLUCOSE, BUN, CREATININE, CA) 2022-04-13 18:17:00 Sapna Vargas [facility] LIPID PANEL (69706)(TOTAL CHOLESTEROL, TRIGLYCERIDES, HDL) 2022-04-13 18:17:00 Harshil Soumya [facility] CBC WITHOUT DIFF 2022-04-13 18:17:00 Sapna Vargas [facility] GLYCOSYLATED HEMOGLOBIN (A1C) 2022-04-13 18:17:00 Harshil [facility] PROTHROMBIN TIME / INR 2022-04-13 18:17:00 Sapna Vargas [facility] ACTIVATED PARTIAL THRMPLAS DAVID 2022-04-13 18:17:00 Sapna Vargas [facility] COVID-19 (ID NOW RAPID TESTING) 2022-04-13 18:17:00 Sapna Vargas [facility] LAB ONLY COVID INTERPRETATION 2022-04-13 18:17:00 Sapna Vargas [facility] HB ECG ROUTINE & RHYTHM STRIP 2022-04-13 18:15:49 Sapna Vargas [facility] CONSENT/REFUSAL FOR DIAGNOSI S AND TREATMENT 2022-04-13 18:05:14 Doctor Unassigned, [facility] HOSPITAL ADMISSION 2022-04-13 05:01:00 Doctor Unassigned, [facility] SARS-COV-2 COVID-19 VACCINE 12 YRS+,0.3ML,IM (PFIZER - [facility]) 2022-02-19 15:21:12 Doctor Unassigned, [facility] URINE DRUG (IMMUNOASSAY) - COMPREHENSIVE DRUG SCREEN W/O REFLEX 2021-11-23 21:21:00 Nichelle Virk [facility] CT HEAD WO CONTRAST 2021-11-23 20:58:00 Nichelle Virk [facility] POCT TEST 2021-11-23 20:46:00 Nichelle Virk [facility] URINALYSIS 2021-11-23 20:43:00 Nichelle Virk [facility] LIPASE 2021-11-23 20:27:00 Nichelle Virk [facility] TROPONIN I 2021-11-23 20:27:00 Nichelle Virk [facility] COMP. METABOLIC PANEL (69052) 2021-11-23 20:27:00 Nichelle Virk [facility] CBC WITH DIFF 2021-11-23 20:27:00 Nichelle Virk [facility] POCT GLUCOSE (AUTOMATED) 2021-11-23 20:15:00 Doctor Unassigned, [facility] SARS-COV-2 COVID-19 VACCINE,0.3ML,IM (PFIZER) 2021-05-24 14:23:12 Doctor Unassigned, [facility] SARS-COV-2 COVID-19 VACCINE,0.3ML,IM (PFIZER) 2021-05-03 14:59:29 Doctor Unassigned, [facility] EMERGENCY SERVICES AGREEMENT S AND AUTHORIZATIONS 2021-04-16 05:01:00 Doctor Unassigned, [facility] URINALYSIS 2021-03-17 03:09:00 Fabrice Chakraborty [facility] XR CHEST 1 VW 2021-03-17 01:45:07 Palmer [facility] TROPONIN I 2021-03-17 01:35:00 Fabrice Chakraborty [facility] COMP. METABOLIC PANEL (66367) 2021-03-17 01:35:[facility] 2021-03-17 01:35:00 Palmer [facility] N-TERMINAL PRO-BNP 2021-03-17 01:35:00 Palmer [facility] COVID-19 (ID NOW RAPID TESTING) 2021-03-17 00:58:00 Brian Bryan [facility] CONSENT/REFUSAL FOR DIAGNOSI S AND TREATMENT 2021-03-17 00:32:59 Doctor Unassigned, [facility] COVID-19 (ID NOW RAPID TESTING) 2021-02-19 17:04:00 Anali Monroy [facility] CT ABDOMEN PELVIS W CONTRAST 2021-02-19 16:41:18 Anali Monroy [facility] LIPASE 2021-02-19 15:58:00 Anali Monroy [facility] COMP. METABOLIC PANEL (96374) 2021-02-19 15:58:00 Anali Monroy [facility] CBC WITH DIFF 2021-02-19 15:58:00 Anali Monroy [facility] URINALYSIS 2021-02-19 15:58:00 Anali Monroy [facility] NOTICE OF PRIVACY PRACTICES 2021-02-19 15:30:46 Doctor Unassigned, [facility] CONSENT/REFUSAL FOR DIAGNOSI S AND TREATMENT 2021-02-19 15:30:30 Doctor Unassigned, [facility] Plan of Care Planned Activity Planned Date Details Comments Source Future Scheduled Test 2025-08-02 00:00:00 Lipid panel (procedure) [code = 55469770] [facility] Future Scheduled Test 2025-08-02 00:00:00 Lipid panel (procedure) [code = 22010322] [facility] Future Scheduled Test 2025-08-02 00:00:00 Lipid panel (procedure) [code = 51340063] [facility] Future Scheduled Test 2025-08-02 00:00:00 Lipid panel (procedure) [code = [id number]] [facility] Future Scheduled Test 2025-08-02 00:00:00 Lipid panel (procedure) [code = 23981531] [facility] Future Scheduled Test 2025-08-02 00:00:00 Lipid panel (procedure) [code = 63912826] [facility] Future Scheduled Test 2025-08-02 00:00:00 Lipid panel (procedure) [code = 39627930] [facility] Future Scheduled Test 2025-08-02 00:00:00 Lipid panel (procedure) [code = 42952007] [facility] Future Scheduled Test 2025-08-02 00:00:00 Lipid panel (procedure) [code = 61450990] [facility] Future Scheduled Test 2025-08-02 00:00:00 Lipid panel (procedure) [code = 13135185] [facility] Future Scheduled Test 2025-08-02 00:00:00 Lipid panel (procedure) [code = 87136689] [facility] Future Scheduled Test 2025-08-02 00:00:00 Lipid panel (procedure) [code = 50616137] [facility] Future Scheduled Test 2025-08-02 00:00:00 Lipid panel (procedure) [code = 04962634] [facility] Future Scheduled Test 2025-08-02 00:00:00 Lipid panel (procedure) [code = 21414501] [facility] Future Scheduled Test 2025-08-02 00:00:00 Lipid panel (procedure) [code = 77602741] [facility] Future Scheduled Test 2025-08-02 00:00:00 Lipid panel (procedure) [code = 13762412] [facility] Future Scheduled Test 2025-08-02 00:00:00 Lipid panel (procedure) [code = 67738259] [facility] Future Scheduled Test 2025-08-02 00:00:00 Lipid panel (procedure) [code = 09959144] [facility] Future Scheduled Test 2025-08-02 00:00:00 Lipid panel (procedure) [code = 73090446] [facility] Future Scheduled Test 2025-08-02 00:00:00 Lipid panel (procedure) [code = 17637811] [facility] Future Scheduled Test 2025-08-02 00:00:00 Lipid panel (procedure) [code = 79588166] [facility] Future Scheduled Test 2025-08-02 00:00:00 Lipid panel (procedure) [code = 79037610] [facility] Future Scheduled Test 2025-08-02 00:00:00 Lipid panel (procedure) [code = 51299098] [facility] Future Scheduled Test 2025-08-02 00:00:00 Lipid panel (procedure) [code = 23989803] [facility] Future Scheduled Test 2025-08-02 00:00:00 Lipid panel (procedure) [code = 28046758] [facility] Future Scheduled Test 2025-08-02 00:00:00 Lipid panel (procedure) [code = 83520941] [facility] Future Scheduled Test 2025-08-02 00:00:00 Lipid panel (procedure) [code = 20945451] [facility] Future Scheduled Test 2025-08-02 00:00:00 Lipid panel (procedure) [code = 42414420] [facility] Future Scheduled Test 2025-08-02 00:00:00 Lipid panel (procedure) [code = 92769741] [facility] Future Scheduled Test 2025-08-02 00:00:00 Lipid panel (procedure) [code = 63665172] [facility] Future Scheduled Test 2025-08-02 00:00:00 Lipid panel (procedure) [code = 66502852] [facility] Future Scheduled Test 2025-08-02 00:00:00 Lipid panel (procedure) [code = 54692868] [facility] Future Scheduled Test 2025-08-02 00:00:00 Lipid panel (procedure) [code = 30480785] [facility] Future Scheduled Test 2025-08-02 00:00:00 Lipid panel (procedure) [code = 09981279] [facility] Future Scheduled Test 2025-08-02 00:00:00 Lipid panel (procedure) [code = 25397313] [facility] Future Scheduled Test 2025-08-02 00:00:00 Lipid panel (procedure) [code = 30320052] [facility] Future Scheduled Test 2025-08-02 00:00:00 Lipid panel (procedure) [code = 13279699] [facility] Future Scheduled Test 2025-08-02 00:00:00 Lipid panel (procedure) [code = 69663063] [facility] Future Scheduled Test 2025-08-02 00:00:00 Lipid panel (procedure) [code = 35991454] [facility] Future Scheduled Test 2025-08-02 00:00:00 Lipid panel (procedure) [code = 66926020] [facility] Future Scheduled Test 2025-08-02 00:00:00 Lipid panel (procedure) [code = 52397519] [facility] Future Scheduled Test 2025-08-02 00:00:00 Lipid panel (procedure) [code = 68020752] [facility] Future Scheduled Test 2025-08-02 00:00:00 Lipid panel (procedure) [code = 50277202] [facility] Future Scheduled Test 2025-08-02 00:00:00 Lipid panel (procedure) [code = 34348242] [facility] Future Scheduled Test 2025-08-02 00:00:00 Lipid panel (procedure) [code = 06617371] [facility] Future Scheduled Test 2025-08-02 00:00:00 Lipid panel (procedure) [code = 10354741] [facility] Future Scheduled Test 2025-08-02 00:00:00 Lipid panel (procedure) [code = 32235884] [facility] Future Scheduled Test 2025-08-02 00:00:00 Lipid panel (procedure) [code = 56827427] [facility] Future Scheduled Test 2025-08-02 00:00:00 Lipid panel (procedure) [code = 42049686] [facility] Future Scheduled Test 2025-08-02 00:00:00 Lipid panel (procedure) [code = 28044602] [facility] Future Scheduled Test 2025-08-02 00:00:00 Lipid panel (procedure) [code = 61858115] [facility] Future Scheduled Test 2025-08-02 00:00:00 Lipid panel (procedure) [code = 49606973] [facility] Future Scheduled Test 2025-08-02 00:00:00 Lipid panel (procedure) [code = 01297895] [facility] Future Scheduled Test 2025-08-02 00:00:00 Lipid panel (procedure) [code = 33839892] [facility] Future Scheduled Test 2025-08-02 00:00:00 Lipid panel (procedure) [code = 64859460] [facility] Future Scheduled Test 2025-08-02 00:00:00 Lipid panel (procedure) [code = 01607177] [facility] Future Scheduled Test 2025-08-02 00:00:00 Lipid panel (procedure) [code = 96922256] [facility] Future Scheduled Test 2025-08-02 00:00:00 Lipid panel (procedure) [code = 61092642] [facility] Future Scheduled Test 2025-08-02 00:00:00 Lipid panel (procedure) [code = 97222416] [facility] Future Scheduled Test 2025-08-02 00:00:00 Lipid panel (procedure) [code = 01128592] [facility] Future Scheduled Test 2025-08-02 00:00:00 Lipid panel (procedure) [code = 85478537] [facility] Future Scheduled Test 2024-05-28 00:00:00 Tobacco Cessation Counseling and Screening (12+) [code = Tobacco Cessation Counseling and Screening (12+)] [facility] Future Scheduled Test 2024-05-28 00:00:00 Tobacco Cessation Counseling and Screening (12+) [code = Tobacco Cessation Counseling and Screening (12+)] [facility] Future Scheduled Test 2024-05-28 00:00:00 Tobacco Cessation Counseling and Screening (12+) [code = Tobacco Cessation Counseling and Screening (12+)] [facility] Future Scheduled Test 2024-05-28 00:00:00 Tobacco Cessation Counseling and Screening (12+) [code = Tobacco Cessation Counseling and Screening (12+)] [facility] Future Scheduled Test 2024-05-28 00:00:00 Tobacco Cessation Counseling and Screening (12+) [code = Tobacco Cessation Counseling and Screening (12+)] [facility] Future Scheduled Test 2024-05-28 00:00:00 Tobacco Cessation Counseling and Screening (12+) [code = Tobacco Cessation Counseling and Screening (12+)] [facility] Future Scheduled Test 2024-05-28 00:00:00 Tobacco Cessation Counseling and Screening (12+) [code = Tobacco Cessation Counseling and Screening (12+)] [facility] Future Scheduled Test 2024-05-28 00:00:00 Tobacco Cessation Counseling and Screening (12+) [code = Tobacco Cessation Counseling and Screening (12+)] [facility] Future Scheduled Test 2024-05-28 00:00:00 Tobacco Cessation Counseling and Screening (12+) [code = Tobacco Cessation Counseling and Screening (12+)] [facility] Scheduled Test 2024-05-28 00:00:00 Tobacco Cessation Counseling and Screening (12+) [code = Tobacco Cessation Counseling and Screening (12+)] [facility] Scheduled Test 2024-05-28 00:00:00 Tobacco Cessation Counseling and Screening (12+) [code = Tobacco Cessation Counseling and Screening (12+)] [facility] Scheduled Test 2024-05-28 00:00:00 Tobacco Cessation Counseling and Screening (12+) [code = Tobacco Cessation Counseling and Screening (12+)] [facility] Scheduled Test 2024-05-28 00:00:00 Tobacco Cessation Counseling and Screening (12+) [code = Tobacco Cessation Counseling and Screening (12+)] [facility] Scheduled Test 2024-05-28 00:00:00 Tobacco Cessation Counseling and Screening (12+) [code = Tobacco Cessation Counseling and Screening (12+)] [facility] Scheduled Test 2024-05-28 00:00:00 Tobacco Cessation Counseling and Screening (12+) [code = Tobacco Cessation Counseling and Screening (12+)] [facility] Scheduled Test 2024-05-28 00:00:00 Tobacco Cessation Counseling and Screening (12+) [code = Tobacco Cessation Counseling and Screening (12+)] [facility] Scheduled Test 2024-05-28 00:00:00 Tobacco Cessation Counseling and Screening (12+) [code = Tobacco Cessation Counseling and Screening (12+)] [facility] Scheduled Test 2024-05-28 00:00:00 Tobacco Cessation Counseling and Screening (12+) [code = Tobacco Cessation Counseling and Screening (12+)] [facility] Scheduled Test 2024-05-28 00:00:00 Tobacco Cessation Counseling and Screening (12+) [code = Tobacco Cessation Counseling and Screening (12+)] [facility] Scheduled Test 2024-05-28 00:00:00 Tobacco Cessation Counseling and Screening (12+) [code = Tobacco Cessation Counseling and Screening (12+)] [facility] Future Scheduled Test 2024-05-28 00:00:00 Tobacco Cessation Counseling and Screening (12+) [code = Tobacco Cessation Counseling and Screening (12+)] [facility] Scheduled Test 2024-05-28 00:00:00 Tobacco Cessation Counseling and Screening (12+) [code = Tobacco Cessation Counseling and Screening (12+)] [facility] Scheduled Test 2024-05-28 00:00:00 Tobacco Cessation Counseling and Screening (12+) [code = Tobacco Cessation Counseling and Screening (12+)] [facility] Scheduled Test 2024-05-28 00:00:00 Tobacco Cessation Counseling and Screening (12+) [code = Tobacco Cessation Counseling and Screening (12+)] [facility] Scheduled Test 2024-05-28 00:00:00 Tobacco Cessation Counseling and Screening (12+) [code = Tobacco Cessation Counseling and Screening (12+)] [facility] Scheduled Test 2024-05-28 00:00:00 Tobacco Cessation Counseling and Screening (12+) [code = Tobacco Cessation Counseling and Screening (12+)] [facility] Scheduled Test 2024-05-28 00:00:00 Tobacco Cessation Counseling and Screening (12+) [code = Tobacco Cessation Counseling and Screening (12+)] [facility] Scheduled Test 2024-05-28 00:00:00 Tobacco Cessation Counseling and Screening (12+) [code = Tobacco Cessation Counseling and Screening (12+)] [facility] Scheduled Test 2024-05-28 00:00:00 Tobacco Cessation Counseling and Screening (12+) [code = Tobacco Cessation Counseling and Screening (12+)] [facility] Scheduled Test 2024-05-28 00:00:00 Tobacco Cessation Counseling and Screening (12+) [code = Tobacco Cessation Counseling and Screening (12+)] [facility] Scheduled Test 2024-05-28 00:00:00 Tobacco Cessation Counseling and Screening (12+) [code = Tobacco Cessation Counseling and Screening (12+)] [facility] Scheduled Test 2024-05-28 00:00:00 Tobacco Cessation Counseling and Screening (12+) [code = Tobacco Cessation Counseling and Screening (12+)] [facility] Future Scheduled Test 2024-05-28 00:00:00 Tobacco Cessation Counseling and Screening (12+) [code = Tobacco Cessation Counseling and Screening (12+)] [facility] Future Scheduled Test 2024-05-28 00:00:00 Tobacco Cessation Counseling and Screening (12+) [code = Tobacco Cessation Counseling and Screening (12+)] [facility] Future Scheduled Test 2024-05-28 00:00:00 Tobacco Cessation Counseling and Screening (12+) [code = Tobacco Cessation Counseling and Screening (12+)] [facility] Scheduled Test 2024-05-28 00:00:00 Tobacco Cessation Counseling and Screening (12+) [code = Tobacco Cessation Counseling and Screening (12+)] [facility] Scheduled Test 2024-05-26 00:00:00 Tobacco Cessation Counseling and Screening (12+) [code = Tobacco Cessation Counseling and Screening (12+)] [facility] Future Scheduled Test 2024-05-26 00:00:00 Tobacco Cessation Counseling and Screening (12+) [code = Tobacco Cessation Counseling and Screening (12+)] [facility] Scheduled Test 2024-03-20 00:00:00 Influenza Vaccine (Season Ended) [code = Influenza Vaccine (Season Ended)] [facility] Future Scheduled Test 2023-07-20 00:00:00 DEPRESSION SCREENING (12+) [code = DEPRESSION SCREENING (12+)] [facility] Future Scheduled Test 2023-07-20 00:00:00 DEPRESSION SCREENING (12+) [code = DEPRESSION SCREENING (12+)] [facility] Future Scheduled Test 2023-07-20 00:00:00 DEPRESSION SCREENING (12+) [code = DEPRESSION SCREENING (12+)] [facility] Future Scheduled Test 2023-07-20 00:00:00 DEPRESSION SCREENING (12+) [code = DEPRESSION SCREENING (12+)] [facility] Future Scheduled Test 2023-07-20 00:00:00 DEPRESSION SCREENING (12+) [code = DEPRESSION SCREENING (12+)] [facility] Future Scheduled Test 2023-07-20 00:00:00 DEPRESSION SCREENING (12+) [code = DEPRESSION SCREENING (12+)] [facility] Future Scheduled Test 2023-07-20 00:00:00 DEPRESSION SCREENING (12+) [code = DEPRESSION SCREENING (12+)] [facility] Future Scheduled Test 2023-07-20 00:00:00 DEPRESSION SCREENING (12+) [code = DEPRESSION SCREENING (12+)] [facility] Future Scheduled Test 2023-07-20 00:00:00 DEPRESSION SCREENING (12+) [code = DEPRESSION SCREENING (12+)] [facility] Future Scheduled Test 2023-07-20 00:00:00 DEPRESSION SCREENING (12+) [code = DEPRESSION SCREENING (12+)] [facility] Future Scheduled Test 2023-07-20 00:00:00 DEPRESSION SCREENING (12+) [code = DEPRESSION SCREENING (12+)] [facility] Future Scheduled Test 2023-07-20 00:00:00 DEPRESSION SCREENING (12+) [code = DEPRESSION SCREENING (12+)] [facility] Future Scheduled Test 2023-07-20 00:00:00 DEPRESSION SCREENING (12+) [code = DEPRESSION SCREENING (12+)] [facility] Future Scheduled Test 2023-07-20 00:00:00 DEPRESSION SCREENING (12+) [code = DEPRESSION SCREENING (12+)] [facility] Future Scheduled Test 2023-07-20 00:00:00 DEPRESSION SCREENING (12+) [code = DEPRESSION SCREENING (12+)] [facility] Future Scheduled Test 2023-07-20 00:00:00 DEPRESSION SCREENING (12+) [code = DEPRESSION SCREENING (12+)] [facility] Future Scheduled Test 2023-07-20 00:00:00 DEPRESSION SCREENING (12+) [code = DEPRESSION SCREENING (12+)] [facility] Future Scheduled Test 2023-07-20 00:00:00 DEPRESSION SCREENING (12+) [code = DEPRESSION SCREENING (12+)] [facility] Future Scheduled Test 2023-07-20 00:00:00 DEPRESSION SCREENING (12+) [code = DEPRESSION SCREENING (12+)] [facility] Future Scheduled Test 2023-07-20 00:00:00 DEPRESSION SCREENING (12+) [code = DEPRESSION SCREENING (12+)] [facility] Future Scheduled Test 2023-07-20 00:00:00 DEPRESSION SCREENING (12+) [code = DEPRESSION SCREENING (12+)] [facility] Future Scheduled Test 2023-07-20 00:00:00 DEPRESSION SCREENING (12+) [code = DEPRESSION SCREENING (12+)] [facility] Future Scheduled Test 2023-07-20 00:00:00 DEPRESSION SCREENING (12+) [code = DEPRESSION SCREENING (12+)] [facility] Future Scheduled Test 2023-07-20 00:00:00 DEPRESSION SCREENING (12+) [code = DEPRESSION SCREENING (12+)] [facility] Future Scheduled Test 2023-07-20 00:00:00 DEPRESSION SCREENING (12+) [code = DEPRESSION SCREENING (12+)] [facility] Future Scheduled Test 2023-07-20 00:00:00 DEPRESSION SCREENING (12+) [code = DEPRESSION SCREENING (12+)] [facility] Future Scheduled Test 2023-07-20 00:00:00 DEPRESSION SCREENING (12+) [code = DEPRESSION SCREENING (12+)] [facility] Future Scheduled Test 2023-07-20 00:00:00 DEPRESSION SCREENING (12+) [code = DEPRESSION SCREENING (12+)] [facility] Future Scheduled Test 2023-03-20 00:00:00 INFLUENZA VACCINE (Season Ended) [code = INFLUENZA VACCINE (Season Ended)] [facility] Future Scheduled Test 2023-03-20 00:00:00 INFLUENZA VACCINE (Season Ended) [code = INFLUENZA VACCINE (Season Ended)] [facility] Future Scheduled Test 2023-03-20 00:00:00 INFLUENZA VACCINE (Season Ended) [code = INFLUENZA VACCINE (Season Ended)] [facility] Future Scheduled Test 2023-03-20 00:00:00 INFLUENZA VACCINE (Season Ended) [code = INFLUENZA VACCINE (Season Ended)] [facility] Future Scheduled Test 2023-03-20 00:00:00 INFLUENZA VACCINE (Season Ended) [code = INFLUENZA VACCINE (Season Ended)] [facility] Future Scheduled Test 2023-03-20 00:00:00 INFLUENZA VACCINE (Season Ended) [code = INFLUENZA VACCINE (Season Ended)] [facility] Future Scheduled Test 2023-03-20 00:00:00 Influenza Vaccine (Season Ended) [code = Influenza Vaccine (Season Ended)] [facility] Future Scheduled Test 2023-03-20 00:00:00 Influenza Vaccine (Season Ended) [code = Influenza Vaccine (Season Ended)] [facility] Future Scheduled Test 2023-03-20 00:00:00 Influenza Vaccine (#1) [code = Influenza Vaccine (#1)] [facility] Future Scheduled Test 2023-03-20 00:00:00 Influenza Vaccine (#1) [code = Influenza Vaccine (#1)] [facility] Future Scheduled Test 2023-03-20 00:00:00 Influenza Vaccine (#1) [code = Influenza Vaccine (#1)] [facility] Future Scheduled Test 2023-03-20 00:00:00 Influenza Vaccine (#1) [code = Influenza Vaccine (#1)] [facility] Future Scheduled Test 2023-03-20 00:00:00 COVID-19 VACCINE ( season) [code = COVID-19 VACCINE ( season)] [facility] Future Scheduled Test 2023-03-20 00:00:00 Influenza Vaccine (#1) [code = Influenza Vaccine (#1)] [facility] Future Scheduled Test 2023-03-20 00:00:00 COVID-19 VACCINE ( season) [code = COVID-19 VACCINE ( season)] [facility] Scheduled Test 2023-03-20 00:00:00 Influenza Vaccine (#1) [code = Influenza Vaccine (#1)] [facility] Scheduled Test 2023-03-20 00:00:00 COVID-19 VACCINE ( season) [code = COVID-19 VACCINE ( season)] [facility] Scheduled Test 2023-03-20 00:00:00 Influenza Vaccine (#1) [code = Influenza Vaccine (#1)] [facility] Scheduled Test 2023-03-20 00:00:00 COVID-19 VACCINE ( season) [code = COVID-19 VACCINE ( season)] [facility] Scheduled Test 2023-03-20 00:00:00 Influenza Vaccine (#1) [code = Influenza Vaccine (#1)] [facility] Scheduled Test 2023-03-20 00:00:00 Influenza Vaccine (#1) [code = Influenza Vaccine (#1)] [facility] Scheduled Test 2023-03-20 00:00:00 COVID-19 VACCINE ( season) [code = COVID-19 VACCINE ()] [facility] Scheduled Test 2023-03-20 00:00:00 Influenza Vaccine (#1) [code = Influenza Vaccine (#1)] [facility] Scheduled Test 2023-03-20 00:00:00 COVID-19 VACCINE ( season) [code = COVID-19 VACCINE ( season)] [facility] Scheduled Test 2023-03-20 00:00:00 Influenza Vaccine (#1) [code = Influenza Vaccine (#1)] [facility] Scheduled Test 2023-03-20 00:00:00 COVID-19 VACCINE ( season) [code = COVID-19 VACCINE ( season)] [facility] Scheduled Test 2023-03-20 00:00:00 Influenza Vaccine (#1) [code = Influenza Vaccine (#1)] [facility] Scheduled Test 2023-03-20 00:00:00 COVID-19 VACCINE ( season) [code = COVID-19 VACCINE ( season)] [facility] Scheduled Test 2023-03-20 00:00:00 Influenza Vaccine (#1) [code = Influenza Vaccine (#1)] [facility] Scheduled Test 2023-03-20 00:00:00 COVID-19 VACCINE ( season) [code = COVID-19 VACCINE ( season)] [facility] Scheduled Test 2023-03-20 00:00:00 Influenza Vaccine (#1) [code = Influenza Vaccine (#1)] [facility] Scheduled Test 2023-03-20 00:00:00 COVID-19 VACCINE ( season) [code = COVID-19 VACCINE ()] [facility] Scheduled Test 2023-03-20 00:00:00 Influenza Vaccine (#1) [code = Influenza Vaccine (#1)] [facility] Scheduled Test 2023-03-20 00:00:00 COVID-19 VACCINE ( season) [code = COVID-19 VACCINE ()] [facility] Scheduled Test 2023-03-20 00:00:00 Influenza Vaccine (#1) [code = Influenza Vaccine (#1)] [facility] Scheduled Test 2023-03-20 00:00:00 Influenza Vaccine (#1) [code = Influenza Vaccine (#1)] [facility] Scheduled Test 2023-03-20 00:00:00 COVID-19 VACCINE ( season) [code = COVID-19 VACCINE ()] [facility] Scheduled Test 2023-03-20 00:00:00 Influenza Vaccine (#1) [code = Influenza Vaccine (#1)] [facility] Scheduled Test 2023-03-20 00:00:00 COVID-19 VACCINE ( season) [code = COVID-19 VACCINE ( season)] [facility] Scheduled Test 2023-03-20 00:00:00 Influenza Vaccine (#1) [code = Influenza Vaccine (#1)] [facility] Scheduled Test 2023-03-20 00:00:00 COVID-19 VACCINE (4 - 2023-24 season) [code = COVID-19 VACCINE ( season)] [facility] Scheduled Test 2023-03-20 00:00:00 Influenza Vaccine (#1) [code = Influenza Vaccine (#1)] [facility] Scheduled Test 2023-03-20 00:00:00 COVID-19 VACCINE ( season) [code = COVID-19 VACCINE ( season)] [facility] Scheduled Test 2023-03-20 00:00:00 Influenza Vaccine (#1) [code = Influenza Vaccine (#1)] [facility] Scheduled Test 2023-03-20 00:00:00 COVID-19 VACCINE ( season) [code = COVID-19 VACCINE ()] [facility] Scheduled Test 2023-03-20 00:00:00 Influenza Vaccine (#1) [code = Influenza Vaccine (#1)] [facility] Scheduled Test 2023-03-20 00:00:00 COVID-19 VACCINE ( season) [code = COVID-19 VACCINE ( season)] [facility] Scheduled Test 2023-03-20 00:00:00 Influenza Vaccine (#1) [code = Influenza Vaccine (#1)] [facility] Scheduled Test 2023-03-20 00:00:00 Influenza Vaccine (#1) [code = Influenza Vaccine (#1)] [facility] Scheduled Test 2023-03-20 00:00:00 COVID-19 VACCINE ( season) [code = COVID-19 VACCINE ( season)] [facility] Scheduled Test 2023-03-20 00:00:00 Influenza Vaccine (#1) [code = Influenza Vaccine (#1)] [facility] Scheduled Test 2023-03-20 00:00:00 COVID-19 VACCINE ( season) [code = COVID-19 VACCINE ()] [facility] Scheduled Test 2023-03-20 00:00:00 Influenza Vaccine (#1) [code = Influenza Vaccine (#1)] [facility] Scheduled Test 2023-03-20 00:00:00 COVID-19 VACCINE ( season) [code = COVID-19 VACCINE ( season)] [facility] Scheduled Test 2023-03-20 00:00:00 Influenza Vaccine (#1) [code = Influenza Vaccine (#1)] [facility] Scheduled Test 2023-03-20 00:00:00 COVID-19 VACCINE ( season) [code = COVID-19 VACCINE ()] [facility] Scheduled Test 2023-03-20 00:00:00 Influenza Vaccine (#1) [code = Influenza Vaccine (#1)] [facility] Scheduled Test 2023-03-20 00:00:00 Influenza Vaccine (#1) [code = Influenza Vaccine (#1)] [facility] Scheduled Test 2023-03-20 00:00:00 COVID-19 VACCINE ( season) [code = COVID-19 VACCINE ( season)] [facility] Scheduled Test 2023-03-20 00:00:00 Influenza Vaccine (#1) [code = Influenza Vaccine (#1)] [facility] Scheduled Test 2023-03-20 00:00:00 COVID-19 VACCINE ( season) [code = COVID-19 VACCINE ( season)] [facility] Scheduled Test 2023-03-20 00:00:00 Influenza Vaccine (#1) [code = Influenza Vaccine (#1)] [facility] Scheduled Test 2023-03-20 00:00:00 COVID-19 VACCINE ( season) [code = COVID-19 VACCINE ( season)] [facility] Scheduled Test 2023-03-20 00:00:00 Influenza Vaccine (#1) [code = Influenza Vaccine (#1)] [facility] Scheduled Test 2023-03-20 00:00:00 COVID-19 VACCINE ( season) [code = COVID-19 VACCINE ( season)] [facility] Scheduled Test 2023-03-20 00:00:00 Influenza Vaccine (#1) [code = Influenza Vaccine (#1)] [facility] Scheduled Test 2023-03-20 00:00:00 COVID-19 VACCINE ( season) [code = COVID-19 VACCINE ()] [facility] Scheduled Test 2023-03-20 00:00:00 Influenza Vaccine (#1) [code = Influenza Vaccine (#1)] [facility] Scheduled Test 2023-03-20 00:00:00 COVID-19 VACCINE ( season) [code = COVID-19 VACCINE ()] [facility] Scheduled Test 2023-03-20 00:00:00 Influenza Vaccine (#1) [code = Influenza Vaccine (#1)] [facility] Scheduled Test 2023-03-20 00:00:00 Influenza Vaccine (#1) [code = Influenza Vaccine (#1)] [facility] Scheduled Test 2023-03-20 00:00:00 COVID-19 VACCINE ( season) [code = COVID-19 VACCINE ()] [facility] Scheduled Test 2023-03-20 00:00:00 Influenza Vaccine (#1) [code = Influenza Vaccine (#1)] [facility] Scheduled Test 2023-03-20 00:00:00 COVID-19 VACCINE ( season) [code = COVID-19 VACCINE ( season)] [facility] Scheduled Test 2023-03-20 00:00:00 Influenza Vaccine (#1) [code = Influenza Vaccine (#1)] [facility] Scheduled Test 2023-03-20 00:00:00 COVID-19 VACCINE ( season) [code = COVID-19 VACCINE ( season)] [facility] Scheduled Test 2023-03-20 00:00:00 Influenza Vaccine (#1) [code = Influenza Vaccine (#1)] [facility] Scheduled Test 2023-03-20 00:00:00 Influenza Vaccine (#1) [code = Influenza Vaccine (#1)] [facility] Scheduled Test 2023-03-20 00:00:00 Influenza Vaccine (#1) [code = Influenza Vaccine (#1)] [facility] Scheduled Test 2023-03-20 00:00:00 Influenza Vaccine (#1) [code = Influenza Vaccine (#1)] [facility] Scheduled Test 2023-03-20 00:00:00 Influenza Vaccine (#1) [code = Influenza Vaccine (#1)] [facility] Scheduled Test 2023-03-20 00:00:00 Influenza Vaccine (#1) [code = Influenza Vaccine (#1)] [facility] Scheduled Test 2023-03-20 00:00:00 Influenza Vaccine (#1) [code = Influenza Vaccine (#1)] [facility] Scheduled Test 2023-03-20 00:00:00 Influenza Vaccine (#1) [code = Influenza Vaccine (#1)] [facility] Scheduled Test 2023-03-20 00:00:00 Influenza Vaccine (#1) [code = Influenza Vaccine (#1)] [facility] Scheduled Test 2023-03-20 00:00:00 Influenza Vaccine (#1) [code = Influenza Vaccine (#1)] [facility] Scheduled Test 2023-03-20 00:00:00 COVID-19 VACCINE ( season) [code = COVID-19 VACCINE ( season)] [facility] Scheduled Test 2022-07-20 00:00:00 DEPRESSION SCREENING (12+) [code = DEPRESSION SCREENING (12+)] [facility] Scheduled Test 2022-07-20 00:00:00 DEPRESSION SCREENING (12+) [code = DEPRESSION SCREENING (12+)] [facility] Scheduled Test 2022-07-20 00:00:00 DEPRESSION SCREENING (12+) [code = DEPRESSION SCREENING (12+)] [facility] Scheduled Test 2022-07-20 00:00:00 DEPRESSION SCREENING (12+) [code = DEPRESSION SCREENING (12+)] [facility] Scheduled Test 2022-07-20 00:00:00 DEPRESSION SCREENING (12+) [code = DEPRESSION SCREENING (12+)] [facility] Scheduled Test 2022-07-20 00:00:00 DEPRESSION SCREENING (12+) [code = DEPRESSION SCREENING (12+)] [facility] Scheduled Test 2022-07-20 00:00:00 DEPRESSION SCREENING (12+) [code = DEPRESSION SCREENING (12+)] [facility] Scheduled Test 2022-07-20 00:00:00 DEPRESSION SCREENING (12+) [code = DEPRESSION SCREENING (12+)] [facility] Scheduled Test 2022-07-20 00:00:00 DEPRESSION SCREENING (12+) [code = DEPRESSION SCREENING (12+)] [facility] Scheduled Test 2022-07-20 00:00:00 DEPRESSION SCREENING (12+) [code = DEPRESSION SCREENING (12+)] [facility] Scheduled Test 2022-07-20 00:00:00 DEPRESSION SCREENING (12+) [code = DEPRESSION SCREENING (12+)] [facility] Scheduled Test 2022-07-20 00:00:00 DEPRESSION SCREENING (12+) [code = DEPRESSION SCREENING (12+)] [facility] Scheduled Test 2022-07-20 00:00:00 DEPRESSION SCREENING (12+) [code = DEPRESSION SCREENING (12+)] [facility] Scheduled Test 2022-07-20 00:00:00 DEPRESSION SCREENING (12+) [code = DEPRESSION SCREENING (12+)] [facility] Scheduled Test 2022-07-20 00:00:00 DEPRESSION SCREENING (12+) [code = DEPRESSION SCREENING (12+)] [facility] Scheduled Test 2022-07-20 00:00:00 DEPRESSION SCREENING (12+) [code = DEPRESSION SCREENING (12+)] [facility] Scheduled Test 2022-07-20 00:00:00 DEPRESSION SCREENING (12+) [code = DEPRESSION SCREENING (12+)] [facility] Scheduled Test 2022-07-20 00:00:00 DEPRESSION SCREENING (12+) [code = DEPRESSION SCREENING (12+)] [facility] Scheduled Test 2022-07-20 00:00:00 DEPRESSION SCREENING (12+) [code = DEPRESSION SCREENING (12+)] [facility] Scheduled Test 2022-07-20 00:00:00 DEPRESSION SCREENING (12+) [code = DEPRESSION SCREENING (12+)] [facility] Scheduled Test 2022-07-20 00:00:00 DEPRESSION SCREENING (12+) [code = DEPRESSION SCREENING (12+)] [facility] Scheduled Test 2022-07-20 00:00:00 DEPRESSION SCREENING (12+) [code = DEPRESSION SCREENING (12+)] [facility] Scheduled Test 2022-07-20 00:00:00 DEPRESSION SCREENING (12+) [code = DEPRESSION SCREENING (12+)] [facility] Scheduled Test 2022-07-20 00:00:00 DEPRESSION SCREENING (12+) [code = DEPRESSION SCREENING (12+)] [facility] Scheduled Test 2022-07-20 00:00:00 DEPRESSION SCREENING (12+) [code = DEPRESSION SCREENING (12+)] [facility] Scheduled Test 2022-07-20 00:00:00 DEPRESSION SCREENING (12+) [code = DEPRESSION SCREENING (12+)] [facility] Scheduled Test 2022-07-20 00:00:00 DEPRESSION SCREENING (12+) [code = DEPRESSION SCREENING (12+)] [facility] Scheduled Test 2022-07-20 00:00:00 DEPRESSION SCREENING (12+) [code = DEPRESSION SCREENING (12+)] [facility] Scheduled Test 2022-07-20 00:00:00 DEPRESSION SCREENING (12+) [code = DEPRESSION SCREENING (12+)] [facility] Scheduled Test 2022-07-20 00:00:00 DEPRESSION SCREENING (12+) [code = DEPRESSION SCREENING (12+)] [facility] Scheduled Test 2022-07-20 00:00:00 DEPRESSION SCREENING (12+) [code = DEPRESSION SCREENING (12+)] [facility] Scheduled Test 2022-07-20 00:00:00 DEPRESSION SCREENING (12+) [code = DEPRESSION SCREENING (12+)] [facility] Scheduled Test 2022-07-20 00:00:00 DEPRESSION SCREENING (12+) [code = DEPRESSION SCREENING (12+)] [facility] Scheduled Test 2022-06-21 00:00:00 COVID-19 VACCINE (4 - Booster for Pfizer series) [code = COVID-19 VACCINE (4 - Booster for Pfizer series)] [facility] Scheduled Test 2022-06-21 00:00:00 COVID-19 VACCINE (4 - Booster for Pfizer series) [code = COVID-19 VACCINE (4 - Booster for Pfizer series)] [facility] Scheduled Test 2022-06-21 00:00:00 COVID-19 VACCINE (4 - Booster for Pfizer series) [code = COVID-19 VACCINE (4 - Booster for Pfizer series)] [facility] Scheduled Test 2022-06-21 00:00:00 COVID-19 VACCINE (4 - Booster for Pfizer series) [code = COVID-19 VACCINE (4 - Booster for Pfizer series)] [facility] Scheduled Test 2022-04-16 00:00:00 COVID-19 VACCINE (4 - Booster for Pfizer series) [code = COVID-19 VACCINE (4 - Booster for Pfizer series)] [facility] Scheduled Test 2022-04-16 00:00:00 COVID-19 VACCINE (4 - Booster for Pfizer series) [code = COVID-19 VACCINE (4 - Booster for Pfizer series)] [facility] Scheduled Test 2022-04-16 00:00:00 COVID-19 VACCINE (4 - Booster for Pfizer series) [code = COVID-19 VACCINE (4 - Booster for Pfizer series)] [facility] Scheduled Test 2022-04-16 00:00:00 COVID-19 VACCINE (4 - Booster for Pfizer series) [code = COVID-19 VACCINE (4 - Booster for Pfizer series)] [facility] Scheduled Test 2022-04-16 00:00:00 COVID-19 VACCINE (4 - Booster for Pfizer series) [code = COVID-19 VACCINE (4 - Booster for Pfizer series)] [facility] Scheduled Test 2022-04-16 00:00:00 COVID-19 VACCINE (4 - Booster for Pfizer series) [code = COVID-19 VACCINE (4 - Booster for Pfizer series)] [facility] Scheduled Test 2022-04-16 00:00:00 COVID-19 VACCINE (4 - Booster for Pfizer series) [code = COVID-19 VACCINE (4 - Booster for Pfizer series)] [facility] Scheduled Test 2022-04-16 00:00:00 COVID-19 VACCINE (4 - Booster for Pfizer series) [code = COVID-19 VACCINE (4 - Booster for Pfizer series)] [facility] Scheduled Test 2022-04-16 00:00:00 COVID-19 VACCINE (4 - Booster for Pfizer series) [code = COVID-19 VACCINE (4 - Booster for Pfizer series)] [facility] Scheduled Test 2022-04-16 00:00:00 COVID-19 VACCINE (4 - Booster for Pfizer series) [code = COVID-19 VACCINE (4 - Booster for Pfizer series)] [facility] Scheduled Test 2022-04-16 00:00:00 COVID-19 VACCINE (4 - Booster for Pfizer series) [code = COVID-19 VACCINE (4 - Booster for Pfizer series)] [facility] Scheduled Test 2022-04-16 00:00:00 COVID-19 VACCINE (4 - Booster for Pfizer series) [code = COVID-19 VACCINE (4 - Booster for Pfizer series)] [facility] Scheduled Test 2022-04-16 00:00:00 COVID-19 VACCINE (4 - Booster for Pfizer series) [code = COVID-19 VACCINE (4 - Booster for Pfizer series)] [facility] Scheduled Test 2022-04-16 00:00:00 COVID-19 VACCINE (4 - Booster for Pfizer series) [code = COVID-19 VACCINE (4 - Booster for Pfizer series)] [facility] Scheduled Test 2022-04-16 00:00:00 COVID-19 VACCINE (4 - Booster for Pfizer series) [code = COVID-19 VACCINE (4 - Booster for Pfizer series)] [facility] Scheduled Test 2022-04-16 00:00:00 COVID-19 VACCINE (4 - Booster for Pfizer series) [code = COVID-19 VACCINE (4 - Booster for Pfizer series)] [facility] Scheduled Test 2022-04-16 00:00:00 COVID-19 VACCINE (4 - Booster for Pfizer series) [code = COVID-19 VACCINE (4 - Booster for Pfizer series)] [facility] Scheduled Test 2022-04-16 00:00:00 COVID-19 VACCINE (4 - Booster for Pfizer series) [code = COVID-19 VACCINE (4 - Booster for Pfizer series)] [facility] Scheduled Test 2022-04-16 00:00:00 COVID-19 VACCINE (4 - Booster for Pfizer series) [code = COVID-19 VACCINE (4 - Booster for Pfizer series)] [facility] Scheduled Test 2022-04-16 00:00:00 COVID-19 VACCINE (4 - Booster for Pfizer series) [code = COVID-19 VACCINE (4 - Booster for Pfizer series)] [facility] Test 2022-04-16 00:00:00 COVID-19 VACCINE (4 - Pfizer series) [code = COVID-19 VACCINE (4 - Pfizer series)] [facility] Test 2022-04-16 00:00:00 COVID-19 VACCINE (4 - Pfizer series) [code = COVID-19 VACCINE (4 - Pfizer series)] [facility] Test 2022-04-16 00:00:00 COVID-19 VACCINE (4 - Pfizer series) [code = COVID-19 VACCINE (4 - Pfizer series)] [facility]uled Test 2022-04-16 00:00:00 COVID-19 VACCINE (4 - Pfizer series) [code = COVID-19 VACCINE (4 - Pfizer series)] [facility] Scheduled Test 2022-04-16 00:00:00 COVID-19 VACCINE (4 - Booster for Pfizer series) [code = COVID-19 VACCINE (4 - Booster for Pfizer series)] [facility] Scheduled Test 2022-04-16 00:00:00 COVID-19 VACCINE (4 - Pfizer series) [code = COVID-19 VACCINE (4 - Pfizer series)] [facility] Sched[facility] Test 2022-03-20 00:00:00 INFLUENZA VACCINE (#1) [code = INFLUENZA VACCINE (#1)] [facility] Test 2022-03-20 00:00:00 INFLUENZA VACCINE (#1) [code = INFLUENZA VACCINE (#1)] [facility] Test 2022-03-20 00:00:00 INFLUENZA VACCINE (#1) [code = INFLUENZA VACCINE (#1)] [facility] Test 2022-03-20 00:00:00 INFLUENZA VACCINE (#1) [code = INFLUENZA VACCINE (#1)] [facility] Test 2022-01-14 00:00:00 SHINGLES VACCINES (1 of 2) [code = SHINGLES VACCINES (1 of 2)] [facility] Test 2022-01-14 00:00:00 SHINGLES VACCINES (1 of 2) [code = SHINGLES VACCINES (1 of 2)] [facility] Test 2022-01-14 00:00:00 SHINGLES VACCINES (1 of 2) [code = SHINGLES VACCINES (1 of 2)] [facility] Test 2022-01-14 00:00:00 SHINGLES VACCINES (1 of 2) [code = SHINGLES VACCINES (1 of 2)] [facility] Test 2022-01-14 00:00:00 SHINGLES VACCINES (1 of 2) [code = SHINGLES VACCINES (1 of 2)] [facility] Test 2022-01-14 00:00:00 SHINGLES VACCINES (1 of 2) [code = SHINGLES VACCINES (1 of 2)] [facility] Test 2022-01-14 00:00:00 SHINGLES VACCINES (1 of 2) [code = SHINGLES VACCINES (1 of 2)] [facility] Sched[facility] Test 2022-01-14 00:00:00 SHINGLES VACCINES (1 of 2) [code = SHINGLES VACCINES (1 of 2)] [facility] Scheduled Test 2022-01-14 00:00:00 SHINGLES VACCINES (1 of 2) [code = SHINGLES VACCINES (1 of 2)] [facility] Sched[facility] Test 2022-01-14 00:00:00 SHINGLES VACCINES (1 of 2) [code = SHINGLES VACCINES (1 of 2)] [facility] Test 2022-01-14 00:00:00 SHINGLES VACCINES (1 of 2) [code = SHINGLES VACCINES (1 of 2)] [facility] Sched[facility] Test 2022-01-14 00:00:00 SHINGLES VACCINES (1 of 2) [code = SHINGLES VACCINES (1 of 2)] [facility] Sched[facility] Test 2022-01-14 00:00:00 SHINGLES VACCINES (1 of 2) [code = SHINGLES VACCINES (1 of 2)] [facility] Scheduled Test 2022-01-14 00:00:00 SHINGLES VACCINES (1 of 2) [code = SHINGLES VACCINES (1 of 2)] [facility] Scheduled Test 2022-01-14 00:00:00 SHINGLES VACCINES (1 of 2) [code = SHINGLES VACCINES (1 of 2)] [facility] Scheduled Test 2022-01-14 00:00:00 Screening for malignant neoplasm of lung (procedure) [code = [id number]] [facility] Scheduled Test 2022-01-14 00:00:00 SHINGLES VACCINES (1 of 2) [code = SHINGLES VACCINES (1 of 2)] [facility] Scheduled Test 2022-01-14 00:00:00 Screening for malignant neoplasm of lung (procedure) [code = [id number]] [facility] Scheduled Test 2022-01-14 00:00:00 SHINGLES VACCINES (1 of 2) [code = SHINGLES VACCINES (1 of 2)] [facility] Scheduled Test 2022-01-14 00:00:00 Screening for malignant neoplasm of lung (procedure) [code = [id number]] [facility] Scheduled Test 2022-01-14 00:00:00 SHINGLES VACCINES (1 of 2) [code = SHINGLES VACCINES (1 of 2)] [facility] Scheduled Test 2022-01-14 00:00:00 Screening for malignant neoplasm of lung (procedure) [code = [id number]] [facility] Scheduled Test 2022-01-14 00:00:00 SHINGLES VACCINES (1 of 2) [code = SHINGLES VACCINES (1 of 2)] [facility] Scheduled Test 2022-01-14 00:00:00 Screening for malignant neoplasm of lung (procedure) [code = [id number]] [facility] Scheduled Test 2022-01-14 00:00:00 SHINGLES VACCINES (1 of 2) [code = SHINGLES VACCINES (1 of 2)] [facility] Scheduled Test 2022-01-14 00:00:00 Screening for malignant neoplasm of lung (procedure) [code = [id number]] [facility] Scheduled Test 2022-01-14 00:00:00 SHINGLES VACCINES (1 of 2) [code = SHINGLES VACCINES (1 of 2)] [facility] Scheduled Test 2022-01-14 00:00:00 Screening for malignant neoplasm of lung (procedure) [code = [id number]] [facility] Scheduled Test 2022-01-14 00:00:00 SHINGLES VACCINES (1 of 2) [code = SHINGLES VACCINES (1 of 2)] [facility] Scheduled Test 2022-01-14 00:00:00 Screening for malignant neoplasm of lung (procedure) [code = [id number]] [facility] Scheduled Test 2022-01-14 00:00:00 SHINGLES VACCINES (1 of 2) [code = SHINGLES VACCINES (1 of 2)] [facility] Scheduled Test 2022-01-14 00:00:00 Screening for malignant neoplasm of lung (procedure) [code = [id number]] [facility] Scheduled Test 2022-01-14 00:00:00 SHINGLES VACCINES (1 of 2) [code = SHINGLES VACCINES (1 of 2)] [facility] Scheduled Test 2022-01-14 00:00:00 Screening for malignant neoplasm of lung (procedure) [code = [id number]] [facility] Scheduled Test 2022-01-14 00:00:00 SHINGLES VACCINES (1 of 2) [code = SHINGLES VACCINES (1 of 2)] [facility] Scheduled Test 2022-01-14 00:00:00 Screening for malignant neoplasm of lung (procedure) [code = [id number]] [facility] Scheduled Test 2022-01-14 00:00:00 SHINGLES VACCINES (1 of 2) [code = SHINGLES VACCINES (1 of 2)] [facility] Scheduled Test 2022-01-14 00:00:00 Screening for malignant neoplasm of lung (procedure) [code = [id number]] [facility] Scheduled Test 2022-01-14 00:00:00 SHINGLES VACCINES (1 of 2) [code = SHINGLES VACCINES (1 of 2)] [facility] Scheduled Test 2022-01-14 00:00:00 Screening for malignant neoplasm of lung (procedure) [code = [id number]] [facility] Scheduled Test 2022-01-14 00:00:00 SHINGLES VACCINES (1 of 2) [code = SHINGLES VACCINES (1 of 2)] [facility] Scheduled Test 2022-01-14 00:00:00 Screening for malignant neoplasm of lung (procedure) [code = [id number]] [facility] Scheduled Test 2022-01-14 00:00:00 SHINGLES VACCINES (1 of 2) [code = SHINGLES VACCINES (1 of 2)] [facility] Scheduled Test 2022-01-14 00:00:00 Screening for malignant neoplasm of lung (procedure) [code = [id number]] [facility] Scheduled Test 2022-01-14 00:00:00 SHINGLES VACCINES (1 of 2) [code = SHINGLES VACCINES (1 of 2)] [facility] Scheduled Test 2022-01-14 00:00:00 Screening for malignant neoplasm of lung (procedure) [code = [id number]] [facility] Scheduled Test 2022-01-14 00:00:00 SHINGLES VACCINES (1 of 2) [code = SHINGLES VACCINES (1 of 2)] [facility] Scheduled Test 2022-01-14 00:00:00 Screening for malignant neoplasm of lung (procedure) [code = 845139590] [facility] Scheduled Test 2022-01-14 00:00:00 SHINGLES VACCINES (1 of 2) [code = SHINGLES VACCINES (1 of 2)] [facility] Scheduled Test 2022-01-14 00:00:00 Screening for malignant neoplasm of lung (procedure) [code = 403351032] [facility] Scheduled Test 2022-01-14 00:00:00 SHINGLES VACCINES (1 of 2) [code = SHINGLES VACCINES (1 of 2)] [facility] Scheduled Test 2022-01-14 00:00:00 Screening for malignant neoplasm of lung (procedure) [code = 832694951] [facility] Scheduled Test 2022-01-14 00:00:00 Screening for malignant neoplasm of lung (procedure) [code = 680817983] [facility] Scheduled Test 2022-01-14 00:00:00 SHINGLES VACCINES (1 of 2) [code = SHINGLES VACCINES (1 of 2)] [facility] Scheduled Test 2022-01-14 00:00:00 SHINGLES VACCINES (1 of 2) [code = SHINGLES VACCINES (1 of 2)] [facility] Scheduled Test 2022-01-14 00:00:00 Screening for malignant neoplasm of lung (procedure) [code = 082831777] [facility] Scheduled Test 2022-01-14 00:00:00 SHINGLES VACCINES (1 of 2) [code = SHINGLES VACCINES (1 of 2)] [facility] Scheduled Test 2022-01-14 00:00:00 Screening for malignant neoplasm of lung (procedure) [code = 409309906] [facility] Scheduled Test 2022-01-14 00:00:00 SHINGLES VACCINES (1 of 2) [code = SHINGLES VACCINES (1 of 2)] [facility] Scheduled Test 2022-01-14 00:00:00 Screening for malignant neoplasm of lung (procedure) [code = 774690738] [facility] Scheduled Test 2022-01-14 00:00:00 SHINGLES VACCINES (1 of 2) [code = SHINGLES VACCINES (1 of 2)] [facility] Scheduled Test 2022-01-14 00:00:00 Screening for malignant neoplasm of lung (procedure) [code = 818090676] [facility] Scheduled Test 2022-01-14 00:00:00 Screening for malignant neoplasm of lung (procedure) [code = 713535555] [facility] Scheduled Test 2022-01-14 00:00:00 SHINGLES VACCINES (1 of 2) [code = SHINGLES VACCINES (1 of 2)] [facility] Scheduled Test 2022-01-14 00:00:00 SHINGLES VACCINES (1 of 2) [code = SHINGLES VACCINES (1 of 2)] [facility] Scheduled Test 2022-01-14 00:00:00 Screening for malignant neoplasm of lung (procedure) [code = 620612134] [facility] Scheduled Test 2022-01-14 00:00:00 SHINGLES VACCINES (1 of 2) [code = SHINGLES VACCINES (1 of 2)] [facility] Scheduled Test 2022-01-14 00:00:00 Screening for malignant neoplasm of lung (procedure) [code = 358725590] [facility] Scheduled Test 2022-01-14 00:00:00 SHINGLES VACCINES (1 of 2) [code = SHINGLES VACCINES (1 of 2)] [facility] Scheduled Test 2022-01-14 00:00:00 Screening for malignant neoplasm of lung (procedure) [code = 075796694] [facility] Scheduled Test 2022-01-14 00:00:00 SHINGLES VACCINES (1 of 2) [code = SHINGLES VACCINES (1 of 2)] [facility] Scheduled Test 2022-01-14 00:00:00 Screening for malignant neoplasm of lung (procedure) [code = 837747605] [facility] Scheduled Test 2022-01-14 00:00:00 SHINGLES VACCINES (1 of 2) [code = SHINGLES VACCINES (1 of 2)] [facility] Scheduled Test 2022-01-14 00:00:00 Screening for malignant neoplasm of lung (procedure) [code = 935043557] [facility] Scheduled Test 2022-01-14 00:00:00 SHINGLES VACCINES (1 of 2) [code = SHINGLES VACCINES (1 of 2)] [facility] Scheduled Test 2022-01-14 00:00:00 Screening for malignant neoplasm of lung (procedure) [code = 884059602] [facility] Scheduled Test 2022-01-14 00:00:00 Screening for malignant neoplasm of lung (procedure) [code = 508768693] [facility] Scheduled Test 2022-01-14 00:00:00 SHINGLES VACCINES (1 of 2) [code = SHINGLES VACCINES (1 of 2)] [facility] Scheduled Test 2022-01-14 00:00:00 SHINGLES VACCINES (1 of 2) [code = SHINGLES VACCINES (1 of 2)] [facility] Scheduled Test 2022-01-14 00:00:00 Screening for malignant neoplasm of lung (procedure) [code = 181423377] [facility] Scheduled Test 2022-01-14 00:00:00 SHINGLES VACCINES (1 of 2) [code = SHINGLES VACCINES (1 of 2)] [facility] Scheduled Test 2022-01-14 00:00:00 Screening for malignant neoplasm of lung (procedure) [code = 973920636] [facility] Scheduled Test 2022-01-14 00:00:00 SHINGLES VACCINES (1 of 2) [code = SHINGLES VACCINES (1 of 2)] [facility] Scheduled Test 2022-01-14 00:00:00 Screening for malignant neoplasm of lung (procedure) [code = 822998398] [facility] Scheduled Test 2022-01-14 00:00:00 SHINGLES VACCINES (1 of 2) [code = SHINGLES VACCINES (1 of 2)] [facility] Scheduled Test 2022-01-14 00:00:00 Screening for malignant neoplasm of lung (procedure) [code = 394690223] [facility] Scheduled Test 2022-01-14 00:00:00 SHINGLES VACCINES (1 of 2) [code = SHINGLES VACCINES (1 of 2)] [facility] Scheduled Test 2022-01-14 00:00:00 Screening for malignant neoplasm of lung (procedure) [code = 827110086] [facility] Scheduled Test 2022-01-14 00:00:00 SHINGLES VACCINES (1 of 2) [code = SHINGLES VACCINES (1 of 2)] [facility] Scheduled Test 2022-01-14 00:00:00 SHINGLES VACCINES (1 of 2) [code = SHINGLES VACCINES (1 of 2)] [facility] Scheduled Test 2022-01-14 00:00:00 SHINGLES VACCINES (1 of 2) [code = SHINGLES VACCINES (1 of 2)] [facility] Scheduled Test 2022-01-14 00:00:00 Screening for malignant neoplasm of lung (procedure) [code = 761383614] [facility] Scheduled Test 2022-01-14 00:00:00 SHINGLES VACCINES (1 of 2) [code = SHINGLES VACCINES (1 of 2)] [facility] Scheduled Test 2022-01-14 00:00:00 Screening for malignant neoplasm of lung (procedure) [code = 580894501] [facility] Scheduled Test 2022-01-14 00:00:00 SHINGLES VACCINES (1 of 2) [code = SHINGLES VACCINES (1 of 2)] [facility] Scheduled Test 2022-01-14 00:00:00 Screening for malignant neoplasm of lung (procedure) [code = 944200456] [facility] Scheduled Test 2022-01-14 00:00:00 SHINGLES VACCINES (1 of 2) [code = SHINGLES VACCINES (1 of 2)] [facility] Scheduled Test 2022-01-14 00:00:00 Screening for malignant neoplasm of lung (procedure) [code = 469372363] [facility] Scheduled Test 2022-01-14 00:00:00 SHINGLES VACCINES (1 of 2) [code = SHINGLES VACCINES (1 of 2)] [facility] Scheduled Test 2022-01-14 00:00:00 Screening for malignant neoplasm of lung (procedure) [code = 787493756] [facility] Scheduled Test 2022-01-14 00:00:00 SHINGLES VACCINES (1 of 2) [code = SHINGLES VACCINES (1 of 2)] [facility] Scheduled Test 2022-01-14 00:00:00 Screening for malignant neoplasm of lung (procedure) [code = 407755964] [facility] Scheduled Test 2022-01-14 00:00:00 SHINGLES VACCINES (1 of 2) [code = SHINGLES VACCINES (1 of 2)] [facility] Scheduled Test 2022-01-14 00:00:00 Screening for malignant neoplasm of lung (procedure) [code = 846670961] [facility] Scheduled Test 2022-01-14 00:00:00 SHINGLES VACCINES (1 of 2) [code = SHINGLES VACCINES (1 of 2)] [facility] Scheduled Test 2013-12-15 00:00:00 PNEUMOCOCCAL VACCINE 0-64 YRS (2 - PCV) [code = PNEUMOCOCCAL VACCINE 0-64 YRS (2 - PCV)] [facility] Scheduled Test 2013-12-15 00:00:00 PNEUMOCOCCAL VACCINE 0-64 YRS (2 - PCV) [code = PNEUMOCOCCAL VACCINE 0-64 YRS (2 - PCV)] [facility] Scheduled Test 2013-12-15 00:00:00 PNEUMOCOCCAL VACCINE 0-64 YRS (2 - PCV) [code = PNEUMOCOCCAL VACCINE 0-64 YRS (2 - PCV)] [facility] Scheduled Test 2013-12-15 00:00:00 PNEUMOCOCCAL VACCINE 0-64 YRS (2 - PCV) [code = PNEUMOCOCCAL VACCINE 0-64 YRS (2 - PCV)] [facility] Scheduled Test 2013-12-15 00:00:00 Pneumococcal Vaccine: 0-64 Years (2 - PCV) [code = Pneumococcal Vaccine: 0-64 Years (2 - PCV)] [facility] Scheduled Test 2013-12-15 00:00:00 Pneumococcal Vaccine: 0-64 Years (2 - PCV) [code = Pneumococcal Vaccine: 0-64 Years (2 - PCV)] [facility] Scheduled Test 2013-12-15 00:00:00 Pneumococcal Vaccine: 0-64 Years (2 - PCV) [code = Pneumococcal Vaccine: 0-64 Years (2 - PCV)] [facility] Scheduled Test 2013-12-15 00:00:00 Pneumococcal Vaccine: 0-64 Years (2 - PCV) [code = Pneumococcal Vaccine: 0-64 Years (2 - PCV)] [facility] Scheduled Test 2013-12-15 00:00:00 Pneumococcal Vaccine: 0-64 Years (2 - PCV) [code = Pneumococcal Vaccine: 0-64 Years (2 - PCV)] [facility] Scheduled Test 2013-12-15 00:00:00 Pneumococcal Vaccine: 0-64 Years (2 - PCV) [code = Pneumococcal Vaccine: 0-64 Years (2 - PCV)] [facility] Scheduled Test 2013-12-15 00:00:00 Pneumococcal Vaccine: 0-64 Years (2 - PCV) [code = Pneumococcal Vaccine: 0-64 Years (2 - PCV)] [facility] Scheduled Test 2013-12-15 00:00:00 Pneumococcal Vaccine: 0-64 Years (2 - PCV) [code = Pneumococcal Vaccine: 0-64 Years (2 - PCV)] [facility] Scheduled Test 2013-12-15 00:00:00 Pneumococcal Vaccine: 0-64 Years (2 - PCV) [code = Pneumococcal Vaccine: 0-64 Years (2 - PCV)] [facility] Scheduled Test 2013-12-15 00:00:00 Pneumococcal Vaccine: 0-64 Years (2 - PCV) [code = Pneumococcal Vaccine: 0-64 Years (2 - PCV)] [facility] Scheduled Test 2013-12-15 00:00:00 Pneumococcal Vaccine: 0-64 Years (2 - PCV) [code = Pneumococcal Vaccine: 0-64 Years (2 - PCV)] [facility] Scheduled Test 2013-12-15 00:00:00 Pneumococcal Vaccine: 0-64 Years (2 - PCV) [code = Pneumococcal Vaccine: 0-64 Years (2 - PCV)] [facility] Scheduled Test 2013-12-15 00:00:00 Pneumococcal Vaccine: 0-64 Years (2 - PCV) [code = Pneumococcal Vaccine: 0-64 Years (2 - PCV)] [facility] Scheduled Test 2013-12-15 00:00:00 Pneumococcal Vaccine: 0-64 Years (2 - PCV) [code = Pneumococcal Vaccine: 0-64 Years (2 - PCV)] [facility] Scheduled Test 2013-12-15 00:00:00 Pneumococcal Vaccine: 0-64 Years (2 - PCV) [code = Pneumococcal Vaccine: 0-64 Years (2 - PCV)] [facility] Scheduled Test 2013-12-15 00:00:00 Pneumococcal Vaccine: 0-64 Years (2 - PCV) [code = Pneumococcal Vaccine: 0-64 Years (2 - PCV)] [facility] Scheduled Test 2013-12-15 00:00:00 Pneumococcal Vaccine: 0-64 Years (2 - PCV) [code = Pneumococcal Vaccine: 0-64 Years (2 - PCV)] [facility] Scheduled Test 2013-12-15 00:00:00 Pneumococcal Vaccine: 0-64 Years (2 - PCV) [code = Pneumococcal Vaccine: 0-64 Years (2 - PCV)] [facility] Scheduled Test 2013-12-15 00:00:00 Pneumococcal Vaccine: 0-64 Years (2 - PCV) [code = Pneumococcal Vaccine: 0-64 Years (2 - PCV)] [facility] Scheduled Test 2013-12-15 00:00:00 Pneumococcal Vaccine: 0-64 Years (2 - PCV) [code = Pneumococcal Vaccine: 0-64 Years (2 - PCV)] [facility] Scheduled Test 2013-12-15 00:00:00 Pneumococcal Vaccine: 0-64 Years (2 of 2 - PCV) [code = Pneumococcal Vaccine: 0-64 Years (2 of 2 - PCV)] [facility] Scheduled Test 2013-12-15 00:00:00 Pneumococcal Vaccine: 0-64 Years (2 of 2 - PCV) [code = Pneumococcal Vaccine: 0-64 Years (2 of 2 - PCV)] [facility] Scheduled Test 2013-12-15 00:00:00 Pneumococcal Vaccine: 0-64 Years (2 of 2 - PCV) [code = Pneumococcal Vaccine: 0-64 Years (2 of 2 - PCV)] [facility] Scheduled Test 2013-12-15 00:00:00 Pneumococcal Vaccine: 0-64 Years (2 of 2 - PCV) [code = Pneumococcal Vaccine: 0-64 Years (2 of 2 - PCV)] [facility] Scheduled Test 2013-12-15 00:00:00 Pneumococcal Vaccine: 0-64 Years (2 of 2 - PCV) [code = Pneumococcal Vaccine: 0-64 Years (2 of 2 - PCV)] [facility] Scheduled Test 2013-12-15 00:00:00 Pneumococcal Vaccine: 0-64 Years (2 of 2 - PCV) [code = Pneumococcal Vaccine: 0-64 Years (2 of 2 - PCV)] [facility] Scheduled Test 2013-12-15 00:00:00 Pneumococcal Vaccine: 0-64 Years (2 of 2 - PCV) [code = Pneumococcal Vaccine: 0-64 Years (2 of 2 - PCV)] [facility] Scheduled Test 2013-12-15 00:00:00 Pneumococcal Vaccine: 0-64 Years (2 of 2 - PCV) [code = Pneumococcal Vaccine: 0-64 Years (2 of 2 - PCV)] [facility] Scheduled Test 2013-12-15 00:00:00 Pneumococcal Vaccine: 0-64 Years (2 of 2 - PCV) [code = Pneumococcal Vaccine: 0-64 Years (2 of 2 - PCV)] [facility] Scheduled Test 2013-12-15 00:00:00 Pneumococcal Vaccine: 0-64 Years (2 of 2 - PCV) [code = Pneumococcal Vaccine: 0-64 Years (2 of 2 - PCV)] [facility] Scheduled Test 2013-12-15 00:00:00 Pneumococcal Vaccine: 0-64 Years (2 - PCV) [code = Pneumococcal Vaccine: 0-64 Years (2 - PCV)] [facility] Scheduled Test 2013-12-15 00:00:00 Pneumococcal Vaccine: 0-64 Years (2 - PCV) [code = Pneumococcal Vaccine: 0-64 Years (2 - PCV)] [facility] Scheduled Test 2013-12-15 00:00:00 Pneumococcal Vaccine: 0-64 Years (2 - PCV) [code = Pneumococcal Vaccine: 0-64 Years (2 - PCV)] [facility] Scheduled Test 1993-01-14 00:00:00 Screening for malignant neoplasm of cervix (procedure) [code = [id number]] [facility] Scheduled Test 1993-01-14 00:00:00 Screening for malignant neoplasm of cervix (procedure) [code = 298041817] [facility] Scheduled Test 1993-01-14 00:00:00 Screening for malignant neoplasm of cervix (procedure) [code = 934147992] [facility] Scheduled Test 1993-01-14 00:00:00 Screening for malignant neoplasm of cervix (procedure) [code = 363705357] [facility] Scheduled Test 1993-01-14 00:00:00 Screening for malignant neoplasm of cervix (procedure) [code = 112203691] [facility] Scheduled Test 1993-01-14 00:00:00 Screening for malignant neoplasm of cervix (procedure) [code = 939290008] [facility] Scheduled Test 1993-01-14 00:00:00 Screening for malignant neoplasm of cervix (procedure) [code = 963030736] [facility] Scheduled Test 1993-01-14 00:00:00 Screening for malignant neoplasm of cervix (procedure) [code = 691698892] [facility] Scheduled Test 1993-01-14 00:00:00 Screening for malignant neoplasm of cervix (procedure) [code = 388999840] [facility] Scheduled Test 1993-01-14 00:00:00 Screening for malignant neoplasm of cervix (procedure) [code = 606091403] [facility] Scheduled Test 1993-01-14 00:00:00 Screening for malignant neoplasm of cervix (procedure) [code = 442654695] [facility] Scheduled Test 1993-01-14 00:00:00 Screening for malignant neoplasm of cervix (procedure) [code = 547504620] [facility] Scheduled Test 1993-01-14 00:00:00 Screening for malignant neoplasm of cervix (procedure) [code = 386272422] [facility] Scheduled Test 1993-01-14 00:00:00 Screening for malignant neoplasm of cervix (procedure) [code = 374259880] [facility] Scheduled Test 1993-01-14 00:00:00 Screening for malignant neoplasm of cervix (procedure) [code = 421047834] [facility] Scheduled Test 1993-01-14 00:00:00 Screening for malignant neoplasm of cervix (procedure) [code = 307535143] [facility] Scheduled Test 1993-01-14 00:00:00 Screening for malignant neoplasm of cervix (procedure) [code = 663771964] [facility] Scheduled Test 1993-01-14 00:00:00 Screening for malignant neoplasm of cervix (procedure) [code = 999185047] [facility] Scheduled Test 1993-01-14 00:00:00 Screening for malignant neoplasm of cervix (procedure) [code = 447479220] [facility] Scheduled Test 1993-01-14 00:00:00 Screening for malignant neoplasm of cervix (procedure) [code = 439193405] [facility] Scheduled Test 1993-01-14 00:00:00 Screening for malignant neoplasm of cervix (procedure) [code = 778684646] [facility] Scheduled Test 1993-01-14 00:00:00 Screening for malignant neoplasm of cervix (procedure) [code = 727602158] [facility] Scheduled Test 1993-01-14 00:00:00 Screening for malignant neoplasm of cervix (procedure) [code = 237562429] [facility] Scheduled Test 1993-01-14 00:00:00 Screening for malignant neoplasm of cervix (procedure) [code = 808847402] [facility] Scheduled Test 1993-01-14 00:00:00 Screening for malignant neoplasm of cervix (procedure) [code = 437667841] [facility] Scheduled Test 1993-01-14 00:00:00 Screening for malignant neoplasm of cervix (procedure) [code = 546775332] [facility] Scheduled Test 1993-01-14 00:00:00 Screening for malignant neoplasm of cervix (procedure) [code = 801369686] [facility] Scheduled Test 1993-01-14 00:00:00 Screening for malignant neoplasm of cervix (procedure) [code = 143081429] [facility] Scheduled Test 1993-01-14 00:00:00 Screening for malignant neoplasm of cervix (procedure) [code = 304548650] [facility] Scheduled Test 1993-01-14 00:00:00 Screening for malignant neoplasm of cervix (procedure) [code = 527626382] [facility] Test 1993-01-14 00:00:00 Screening for malignant neoplasm of cervix (procedure) [code = 822249617] [facility] Test 1993-01-14 00:00:00 Screening for malignant neoplasm of cervix (procedure) [code = 938619449] [facility] Scheduled Test 1993-01-14 00:00:00 Screening for malignant neoplasm of cervix (procedure) [code = 343484030] [facility] Scheduled Test 1993-01-14 00:00:00 Screening for malignant neoplasm of cervix (procedure) [code = 377276565] [facility] Scheduled Test 1993-01-14 00:00:00 Screening for malignant neoplasm of cervix (procedure) [code = 568551025] [facility] Scheduled Test 1993-01-14 00:00:00 Screening for malignant neoplasm of cervix (procedure) [code = 905382724] [facility] Scheduled Test 1993-01-14 00:00:00 Screening for malignant neoplasm of cervix (procedure) [code = 236780933] [facility] Scheduled Test 1993-01-14 00:00:00 Screening for malignant neoplasm of cervix (procedure) [code = 598871334] [facility] Scheduled Test 1993-01-14 00:00:00 Screening for malignant neoplasm of cervix (procedure) [code = 194899449] [facility] Scheduled Test 1993-01-14 00:00:00 Screening for malignant neoplasm of cervix (procedure) [code = 718751846] [facility] Scheduled Test 1993-01-14 00:00:00 Screening for malignant neoplasm of cervix (procedure) [code = 453872592] [facility] Scheduled Test 1993-01-14 00:00:00 Screening for malignant neoplasm of cervix (procedure) [code = 437273285] [facility] Scheduled Test 1993-01-14 00:00:00 Screening for malignant neoplasm of cervix (procedure) [code = 209559352] [facility] Scheduled Test 1993-01-14 00:00:00 Screening for malignant neoplasm of cervix (procedure) [code = 917064897] [facility] Scheduled Test 1993-01-14 00:00:00 Screening for malignant neoplasm of cervix (procedure) [code = 229849839] [facility] Scheduled Test 1993-01-14 00:00:00 Screening for malignant neoplasm of cervix (procedure) [code = 241748959] [facility] Scheduled Test 1993-01-14 00:00:00 Screening for malignant neoplasm of cervix (procedure) [code = 166650081] [facility] Scheduled Test 1993-01-14 00:00:00 Screening for malignant neoplasm of cervix (procedure) [code = 913761702] [facility] Scheduled Test 1993-01-14 00:00:00 Screening for malignant neoplasm of cervix (procedure) [code = 861230013] [facility] Scheduled Test 1993-01-14 00:00:00 Screening for malignant neoplasm of cervix (procedure) [code = 204950308] [facility] Scheduled Test 1993-01-14 00:00:00 Screening for malignant neoplasm of cervix (procedure) [code = 041965926] [facility] Scheduled Test 1993-01-14 00:00:00 Screening for malignant neoplasm of cervix (procedure) [code = 215688276] [facility] Scheduled Test 1993-01-14 00:00:00 Screening for malignant neoplasm of cervix (procedure) [code = 452492901] [facility] Scheduled Test 1993-01-14 00:00:00 Screening for malignant neoplasm of cervix (procedure) [code = 968358627] [facility] Scheduled Test 1993-01-14 00:00:00 Screening for malignant neoplasm of cervix (procedure) [code = 004443028] [facility] Scheduled Test 1993-01-14 00:00:00 Screening for malignant neoplasm of cervix (procedure) [code = 090340869] [facility] Scheduled Test 1993-01-14 00:00:00 Screening for malignant neoplasm of cervix (procedure) [code = 155416065] [facility] Scheduled Test 1993-01-14 00:00:00 Screening for malignant neoplasm of cervix (procedure) [code = 092622869] [facility] Scheduled Test 1993-01-14 00:00:00 Screening for malignant neoplasm of cervix (procedure) [code = 158014857] [facility] Scheduled Test 1993-01-14 00:00:00 Screening for malignant neoplasm of cervix (procedure) [code = 712744637] [facility] Scheduled Test 1993-01-14 00:00:00 Screening for malignant neoplasm of cervix (procedure) [code = 673011658] [facility] Scheduled Test 1991-01-14 00:00:00 DTAP/TDAP/TD VACCINES (1 - Tdap) [code = DTAP/TDAP/TD VACCINES (1 - Tdap)] [facility] Scheduled Test 1991-01-14 00:00:00 DTAP/TDAP/TD VACCINES (1 - Tdap) [code = DTAP/TDAP/TD VACCINES (1 - Tdap)] [facility] Scheduled Test 1991-01-14 00:00:00 DTAP/TDAP/TD VACCINES (1 - Tdap) [code = DTAP/TDAP/TD VACCINES (1 - Tdap)] [facility] Scheduled Test 1991-01-14 00:00:00 DTAP/TDAP/TD VACCINES (1 - Tdap) [code = DTAP/TDAP/TD VACCINES (1 - Tdap)] [facility] Scheduled Test 1991-01-14 00:00:00 DTAP/TDAP/TD VACCINES (1 - Tdap) [code = DTAP/TDAP/TD VACCINES (1 - Tdap)] [facility] Scheduled Test 1991-01-14 00:00:00 DTAP/TDAP/TD VACCINES (1 - Tdap) [code = DTAP/TDAP/TD VACCINES (1 - Tdap)] [facility] Scheduled Test 1991-01-14 00:00:00 DTAP/TDAP/TD VACCINES (1 - Tdap) [code = DTAP/TDAP/TD VACCINES (1 - Tdap)] [facility] Scheduled Test 1991-01-14 00:00:00 DTAP/TDAP/TD VACCINES (1 - Tdap) [code = DTAP/TDAP/TD VACCINES (1 - Tdap)] [facility] Scheduled Test 1991-01-14 00:00:00 DTAP/TDAP/TD VACCINES (1 - Tdap) [code = DTAP/TDAP/TD VACCINES (1 - Tdap)] [facility] Scheduled Test 1991-01-14 00:00:00 DTAP/TDAP/TD VACCINES (1 - Tdap) [code = DTAP/TDAP/TD VACCINES (1 - Tdap)] [facility] Scheduled Test 1991-01-14 00:00:00 DTAP/TDAP/TD VACCINES (1 - Tdap) [code = DTAP/TDAP/TD VACCINES (1 - Tdap)] [facility] Scheduled Test 1991-01-14 00:00:00 DTAP/TDAP/TD VACCINES (1 - Tdap) [code = DTAP/TDAP/TD VACCINES (1 - Tdap)] [facility] Scheduled Test 1991-01-14 00:00:00 DTAP/TDAP/TD VACCINES (1 - Tdap) [code = DTAP/TDAP/TD VACCINES (1 - Tdap)] [facility] Scheduled Test 1991-01-14 00:00:00 DTAP/TDAP/TD VACCINES (1 - Tdap) [code = DTAP/TDAP/TD VACCINES (1 - Tdap)] [facility] Scheduled Test 1991-01-14 00:00:00 DTAP/TDAP/TD VACCINES (1 - Tdap) [code = DTAP/TDAP/TD VACCINES (1 - Tdap)] [facility] Scheduled Test 1991-01-14 00:00:00 DTAP/TDAP/TD VACCINES (1 - Tdap) [code = DTAP/TDAP/TD VACCINES (1 - Tdap)] [facility] Scheduled Test 1991-01-14 00:00:00 DTAP/TDAP/TD VACCINES (1 - Tdap) [code = DTAP/TDAP/TD VACCINES (1 - Tdap)] [facility] Scheduled Test 1991-01-14 00:00:00 DTAP/TDAP/TD VACCINES (1 - Tdap) [code = DTAP/TDAP/TD VACCINES (1 - Tdap)] [facility] Scheduled Test 1991-01-14 00:00:00 DTAP/TDAP/TD VACCINES (1 - Tdap) [code = DTAP/TDAP/TD VACCINES (1 - Tdap)] [facility] Scheduled Test 1991-01-14 00:00:00 DTAP/TDAP/TD VACCINES (1 - Tdap) [code = DTAP/TDAP/TD VACCINES (1 - Tdap)] [facility] Scheduled Test 1991-01-14 00:00:00 DTAP/TDAP/TD VACCINES (1 - Tdap) [code = DTAP/TDAP/TD VACCINES (1 - Tdap)] [facility] Scheduled Test 1991-01-14 00:00:00 DTAP/TDAP/TD VACCINES (1 - Tdap) [code = DTAP/TDAP/TD VACCINES (1 - Tdap)] [facility] Scheduled Test 1991-01-14 00:00:00 DTAP/TDAP/TD VACCINES (1 - Tdap) [code = DTAP/TDAP/TD VACCINES (1 - Tdap)] [facility] Scheduled Test 1991-01-14 00:00:00 DTAP/TDAP/TD VACCINES (1 - Tdap) [code = DTAP/TDAP/TD VACCINES (1 - Tdap)] [facility] Scheduled Test 1991-01-14 00:00:00 DTAP/TDAP/TD VACCINES (1 - Tdap) [code = DTAP/TDAP/TD VACCINES (1 - Tdap)] [facility] Scheduled Test 1991-01-14 00:00:00 DTAP/TDAP/TD VACCINES (1 - Tdap) [code = DTAP/TDAP/TD VACCINES (1 - Tdap)] [facility] Scheduled Test 1991-01-14 00:00:00 DTAP/TDAP/TD VACCINES (1 - Tdap) [code = DTAP/TDAP/TD VACCINES (1 - Tdap)] [facility] Scheduled Test 1991-01-14 00:00:00 DTAP/TDAP/TD VACCINES (1 - Tdap) [code = DTAP/TDAP/TD VACCINES (1 - Tdap)] [facility] Scheduled Test 1991-01-14 00:00:00 DTAP/TDAP/TD VACCINES (1 - Tdap) [code = DTAP/TDAP/TD VACCINES (1 - Tdap)] [facility] Scheduled Test 1991-01-14 00:00:00 DTAP/TDAP/TD VACCINES (1 - Tdap) [code = DTAP/TDAP/TD VACCINES (1 - Tdap)] [facility] Scheduled Test 1991-01-14 00:00:00 DTAP/TDAP/TD VACCINES (1 - Tdap) [code = DTAP/TDAP/TD VACCINES (1 - Tdap)] [facility] Scheduled Test 1991-01-14 00:00:00 DTAP/TDAP/TD VACCINES (1 - Tdap) [code = DTAP/TDAP/TD VACCINES (1 - Tdap)] [facility] Scheduled Test 1991-01-14 00:00:00 DTAP/TDAP/TD VACCINES (1 - Tdap) [code = DTAP/TDAP/TD VACCINES (1 - Tdap)] [facility] Scheduled Test 1991-01-14 00:00:00 DTAP/TDAP/TD VACCINES (1 - Tdap) [code = DTAP/TDAP/TD VACCINES (1 - Tdap)] [facility] Scheduled Test 1991-01-14 00:00:00 DTAP/TDAP/TD VACCINES (1 - Tdap) [code = DTAP/TDAP/TD VACCINES (1 - Tdap)] [facility] Scheduled Test 1991-01-14 00:00:00 DTAP/TDAP/TD VACCINES (1 - Tdap) [code = DTAP/TDAP/TD VACCINES (1 - Tdap)] [facility] Scheduled Test 1991-01-14 00:00:00 DTAP/TDAP/TD VACCINES (1 - Tdap) [code = DTAP/TDAP/TD VACCINES (1 - Tdap)] [facility] Scheduled Test 1991-01-14 00:00:00 DTAP/TDAP/TD VACCINES (1 - Tdap) [code = DTAP/TDAP/TD VACCINES (1 - Tdap)] [facility] Scheduled Test 1991-01-14 00:00:00 DTAP/TDAP/TD VACCINES (1 - Tdap) [code = DTAP/TDAP/TD VACCINES (1 - Tdap)] [facility] Scheduled Test 1991-01-14 00:00:00 DTAP/TDAP/TD VACCINES (1 - Tdap) [code = DTAP/TDAP/TD VACCINES (1 - Tdap)] [facility] Scheduled Test 1991-01-14 00:00:00 DTAP/TDAP/TD VACCINES (1 - Tdap) [code = DTAP/TDAP/TD VACCINES (1 - Tdap)] [facility] Scheduled Test 1991-01-14 00:00:00 DTAP/TDAP/TD VACCINES (1 - Tdap) [code = DTAP/TDAP/TD VACCINES (1 - Tdap)] [facility] Scheduled Test 1991-01-14 00:00:00 DTAP/TDAP/TD VACCINES (1 - Tdap) [code = DTAP/TDAP/TD VACCINES (1 - Tdap)] [facility] Scheduled Test 1991-01-14 00:00:00 DTAP/TDAP/TD VACCINES (1 - Tdap) [code = DTAP/TDAP/TD VACCINES (1 - Tdap)] [facility] Scheduled Test 1991-01-14 00:00:00 DTAP/TDAP/TD VACCINES (1 - Tdap) [code = DTAP/TDAP/TD VACCINES (1 - Tdap)] [facility] Scheduled Test 1991-01-14 00:00:00 DTAP/TDAP/TD VACCINES (1 - Tdap) [code = DTAP/TDAP/TD VACCINES (1 - Tdap)] [facility] Scheduled Test 1991-01-14 00:00:00 DTAP/TDAP/TD VACCINES (1 - Tdap) [code = DTAP/TDAP/TD VACCINES (1 - Tdap)] [facility] Scheduled Test 1991-01-14 00:00:00 DTAP/TDAP/TD VACCINES (1 - Tdap) [code = DTAP/TDAP/TD VACCINES (1 - Tdap)] [facility] Scheduled Test 1991-01-14 00:00:00 DTAP/TDAP/TD VACCINES (1 - Tdap) [code = DTAP/TDAP/TD VACCINES (1 - Tdap)] [facility] Scheduled Test 1991-01-14 00:00:00 DTAP/TDAP/TD VACCINES (1 - Tdap) [code = DTAP/TDAP/TD VACCINES (1 - Tdap)] [facility] Scheduled Test 1991-01-14 00:00:00 DTAP/TDAP/TD VACCINES (1 - Tdap) [code = DTAP/TDAP/TD VACCINES (1 - Tdap)] [facility] Scheduled Test 1991-01-14 00:00:00 DTAP/TDAP/TD VACCINES (1 - Tdap) [code = DTAP/TDAP/TD VACCINES (1 - Tdap)] [facility] Scheduled Test 1991-01-14 00:00:00 DTAP/TDAP/TD VACCINES (1 - Tdap) [code = DTAP/TDAP/TD VACCINES (1 - Tdap)] [facility] Scheduled Test 1991-01-14 00:00:00 DTAP/TDAP/TD VACCINES (1 - Tdap) [code = DTAP/TDAP/TD VACCINES (1 - Tdap)] [facility] Scheduled Test 1991-01-14 00:00:00 DTAP/TDAP/TD VACCINES (1 - Tdap) [code = DTAP/TDAP/TD VACCINES (1 - Tdap)] [facility] Scheduled Test 1991-01-14 00:00:00 DTAP/TDAP/TD VACCINES (1 - Tdap) [code = DTAP/TDAP/TD VACCINES (1 - Tdap)] [facility] Scheduled Test 1991-01-14 00:00:00 DTAP/TDAP/TD VACCINES (1 - Tdap) [code = DTAP/TDAP/TD VACCINES (1 - Tdap)] [facility] Scheduled Test 1991-01-14 00:00:00 DTAP/TDAP/TD VACCINES (1 - Tdap) [code = DTAP/TDAP/TD VACCINES (1 - Tdap)] [facility] Scheduled Test 1991-01-14 00:00:00 DTAP/TDAP/TD VACCINES (1 - Tdap) [code = DTAP/TDAP/TD VACCINES (1 - Tdap)] [facility] Scheduled Test 1991-01-14 00:00:00 DTAP/TDAP/TD VACCINES (1 - Tdap) [code = DTAP/TDAP/TD VACCINES (1 - Tdap)] [facility] Scheduled Test 1991-01-14 00:00:00 DTAP/TDAP/TD VACCINES (1 - Tdap) [code = DTAP/TDAP/TD VACCINES (1 - Tdap)] [facility] Scheduled Test 1990-01-14 00:00:00 HEPATITIS C SCREENING [code = HEPATITIS C SCREENING] [facility] Scheduled Test 1990-01-14 00:00:00 HEPATITIS C SCREENING [code = HEPATITIS C SCREENING] [facility] Scheduled Test 1990-01-14 00:00:00 HEPATITIS C SCREENING [code = HEPATITIS C SCREENING] [facility] Scheduled Test 1990-01-14 00:00:00 HEPATITIS C SCREENING [code = HEPATITIS C SCREENING] [facility] Scheduled Test 1990-01-14 00:00:00 HEPATITIS C SCREENING [code = HEPATITIS C SCREENING] [facility] Scheduled Test 1990-01-14 00:00:00 HEPATITIS C SCREENING [code = HEPATITIS C SCREENING] [facility] Scheduled Test 1990-01-14 00:00:00 HEPATITIS C SCREENING [code = HEPATITIS C SCREENING] [facility] Scheduled Test 1990-01-14 00:00:00 HEPATITIS C SCREENING [code = HEPATITIS C SCREENING] [facility] Scheduled Test 1990-01-14 00:00:00 HEPATITIS C SCREENING [code = HEPATITIS C SCREENING] [facility] Scheduled Test 1990-01-14 00:00:00 HEPATITIS C SCREENING [code = HEPATITIS C SCREENING] [facility] Scheduled Test 1990-01-14 00:00:00 HEPATITIS C SCREENING [code = HEPATITIS C SCREENING] [facility] Scheduled Test 1990-01-14 00:00:00 HEPATITIS C SCREENING [code = HEPATITIS C SCREENING] [facility] Scheduled Test 1990-01-14 00:00:00 HEPATITIS C SCREENING [code = HEPATITIS C SCREENING] [facility] Scheduled Test 1990-01-14 00:00:00 HEPATITIS C SCREENING [code = HEPATITIS C SCREENING] [facility] Scheduled Test 1990-01-14 00:00:00 HEPATITIS C SCREENING [code = HEPATITIS C SCREENING] [facility] Scheduled Test 1990-01-14 00:00:00 HEPATITIS C SCREENING [code = HEPATITIS C SCREENING] [facility] Scheduled Test 1990-01-14 00:00:00 HEPATITIS C SCREENING [code = HEPATITIS C SCREENING] [facility] Scheduled Test 1990-01-14 00:00:00 HEPATITIS C SCREENING [code = HEPATITIS C SCREENING] [facility] Scheduled Test 1990-01-14 00:00:00 HEPATITIS C SCREENING [code = HEPATITIS C SCREENING] [facility] Scheduled Test 1990-01-14 00:00:00 HEPATITIS C SCREENING [code = HEPATITIS C SCREENING] [facility] Scheduled Test 1990-01-14 00:00:00 HEPATITIS C SCREENING [code = HEPATITIS C SCREENING] [facility] Scheduled Test 1990-01-14 00:00:00 HEPATITIS C SCREENING [code = HEPATITIS C SCREENING] [facility] Scheduled Test 1990-01-14 00:00:00 HEPATITIS C SCREENING [code = HEPATITIS C SCREENING] [facility] Scheduled Test 1990-01-14 00:00:00 HEPATITIS C SCREENING [code = HEPATITIS C SCREENING] [facility] Scheduled Test 1990-01-14 00:00:00 HEPATITIS C SCREENING [code = HEPATITIS C SCREENING] [facility] Scheduled Test 1990-01-14 00:00:00 HEPATITIS C SCREENING [code = HEPATITIS C SCREENING] [facility] Scheduled Test 1990-01-14 00:00:00 HEPATITIS C SCREENING [code = HEPATITIS C SCREENING] [facility] Scheduled Test 1990-01-14 00:00:00 HEPATITIS C SCREENING [code = HEPATITIS C SCREENING] [facility] Scheduled Test 1990-01-14 00:00:00 HEPATITIS C SCREENING [code = HEPATITIS C SCREENING] [facility] Scheduled Test 1990-01-14 00:00:00 HEPATITIS C SCREENING [code = HEPATITIS C SCREENING] [facility] Scheduled Test 1990-01-14 00:00:00 HEPATITIS C SCREENING [code = HEPATITIS C SCREENING] [facility] Scheduled Test 1990-01-14 00:00:00 HEPATITIS C SCREENING [code = HEPATITIS C SCREENING] [facility] Scheduled Test 1990-01-14 00:00:00 HEPATITIS C SCREENING [code = HEPATITIS C SCREENING] [facility] Scheduled Test 1990-01-14 00:00:00 HEPATITIS C SCREENING [code = HEPATITIS C SCREENING] [facility] Scheduled Test 1990-01-14 00:00:00 HEPATITIS C SCREENING [code = HEPATITIS C SCREENING] [facility] Scheduled Test 1990-01-14 00:00:00 HEPATITIS C SCREENING [code = HEPATITIS C SCREENING] [facility] Scheduled Test 1990-01-14 00:00:00 HEPATITIS C SCREENING [code = HEPATITIS C SCREENING] [facility] Scheduled Test 1990-01-14 00:00:00 HEPATITIS C SCREENING [code = HEPATITIS C SCREENING] [facility] Scheduled Test 1990-01-14 00:00:00 HEPATITIS C SCREENING [code = HEPATITIS C SCREENING] [facility] Scheduled Test 1990-01-14 00:00:00 HEPATITIS C SCREENING [code = HEPATITIS C SCREENING] [facility] Scheduled Test 1990-01-14 00:00:00 HEPATITIS C SCREENING [code = HEPATITIS C SCREENING] [facility] Scheduled Test 1990-01-14 00:00:00 HEPATITIS C SCREENING [code = HEPATITIS C SCREENING] [facility] Scheduled Test 1990-01-14 00:00:00 HEPATITIS C SCREENING [code = HEPATITIS C SCREENING] [facility] Scheduled Test 1990-01-14 00:00:00 HEPATITIS C SCREENING [code = HEPATITIS C SCREENING] [facility] Scheduled Test 1990-01-14 00:00:00 HEPATITIS C SCREENING [code = HEPATITIS C SCREENING] [facility] Scheduled Test 1990-01-14 00:00:00 HEPATITIS C SCREENING [code = HEPATITIS C SCREENING] [facility] Scheduled Test 1990-01-14 00:00:00 HEPATITIS C SCREENING [code = HEPATITIS C SCREENING] [facility] Scheduled Test 1990-01-14 00:00:00 HEPATITIS C SCREENING [code = HEPATITIS C SCREENING] [facility] Scheduled Test 1990-01-14 00:00:00 HEPATITIS C SCREENING [code = HEPATITIS C SCREENING] [facility] Scheduled Test 1990-01-14 00:00:00 HEPATITIS C SCREENING [code = HEPATITIS C SCREENING] [facility] Scheduled Test 1990-01-14 00:00:00 HEPATITIS C SCREENING [code = HEPATITIS C SCREENING] [facility] Scheduled Test 1990-01-14 00:00:00 HEPATITIS C SCREENING [code = HEPATITIS C SCREENING] [facility] Scheduled Test 1990-01-14 00:00:00 HEPATITIS C SCREENING [code = HEPATITIS C SCREENING] [facility] Scheduled Test 1990-01-14 00:00:00 HEPATITIS C SCREENING [code = HEPATITIS C SCREENING] [facility] Scheduled Test 1990-01-14 00:00:00 HEPATITIS C SCREENING [code = HEPATITIS C SCREENING] [facility] Scheduled Test 1990-01-14 00:00:00 HEPATITIS C SCREENING [code = HEPATITIS C SCREENING] [facility] Scheduled Test 1990-01-14 00:00:00 HEPATITIS C SCREENING [code = HEPATITIS C SCREENING] [facility] Scheduled Test 1990-01-14 00:00:00 HEPATITIS C SCREENING [code = HEPATITIS C SCREENING] [facility] Scheduled Test 1990-01-14 00:00:00 HEPATITIS C SCREENING [code = HEPATITIS C SCREENING] [facility] Scheduled Test 1990-01-14 00:00:00 HEPATITIS C SCREENING [code = HEPATITIS C SCREENING] [facility] Scheduled Test 1990-01-14 00:00:00 HEPATITIS C SCREENING [code = HEPATITIS C SCREENING] [facility] Scheduled Test 1987-01-14 00:00:00 Human immunodeficiency virus screening (procedure) [code = 031418495] [facility] Scheduled Test 1987-01-14 00:00:00 Human immunodeficiency virus screening (procedure) [code = [id number]] [facility] Scheduled Test 1984 00:00:00 Tobacco Cessation Counseling and Screening (12+) [code = Tobacco Cessation Counseling and Screening (12+)] [facility] Scheduled Test 1984 00:00:00 Tobacco Cessation Counseling and Screening (12+) [code = Tobacco Cessation Counseling and Screening (12+)] [facility] Scheduled Test 1984 00:00:00 Tobacco Cessation Counseling and Screening (12+) [code = Tobacco Cessation Counseling and Screening (12+)] [facility] Scheduled Test 1984 00:00:00 Tobacco Cessation Counseling and Screening (12+) [code = Tobacco Cessation Counseling and Screening (12+)] [facility] Scheduled Test 1984 00:00:00 Tobacco Cessation Counseling and Screening (12+) [code = Tobacco Cessation Counseling and Screening (12+)] [facility] Scheduled Test 1984 00:00:00 Tobacco Cessation Counseling and Screening (12+) [code = Tobacco Cessation Counseling and Screening (12+)] [facility] Scheduled Test 1984 00:00:00 Tobacco Cessation Counseling and Screening (12+) [code = Tobacco Cessation Counseling and Screening (12+)] [facility] Scheduled Test 1984 00:00:00 Tobacco Cessation Counseling and Screening (12+) [code = Tobacco Cessation Counseling and Screening (12+)] [facility] Scheduled Test 1984 00:00:00 Tobacco Cessation Counseling and Screening (12+) [code = Tobacco Cessation Counseling and Screening (12+)] [facility] Scheduled Test 1984 00:00:00 Tobacco Cessation Counseling and Screening (12+) [code = Tobacco Cessation Counseling and Screening (12+)] [facility] Scheduled Test 1984 00:00:00 Tobacco Cessation Counseling and Screening (12+) [code = Tobacco Cessation Counseling and Screening (12+)] [facility] Scheduled Test 1984 00:00:00 Tobacco Cessation Counseling and Screening (12+) [code = Tobacco Cessation Counseling and Screening (12+)] [facility] Scheduled Test 1984 00:00:00 Tobacco Cessation Counseling and Screening (12+) [code = Tobacco Cessation Counseling and Screening (12+)] [facility] Scheduled Test 1984 00:00:00 Tobacco Cessation Counseling and Screening (12+) [code = Tobacco Cessation Counseling and Screening (12+)] [facility] Scheduled Test 1984 00:00:00 Tobacco Cessation Counseling and Screening (12+) [code = Tobacco Cessation Counseling and Screening (12+)] [facility] Scheduled Test 1984 00:00:00 Tobacco Cessation Counseling and Screening (12+) [code = Tobacco Cessation Counseling and Screening (12+)] [facility] Scheduled Test 1984 00:00:00 Tobacco Cessation Counseling and Screening (12+) [code = Tobacco Cessation Counseling and Screening (12+)] [facility] Scheduled Test 1984 00:00:00 Tobacco Cessation Counseling and Screening (12+) [code = Tobacco Cessation Counseling and Screening (12+)] [facility] Scheduled Test 1984 00:00:00 Tobacco Cessation Counseling and Screening (12+) [code = Tobacco Cessation Counseling and Screening (12+)] [facility] Scheduled Test 1984 00:00:00 Tobacco Cessation Counseling and Screening (12+) [code = Tobacco Cessation Counseling and Screening (12+)] [facility] Scheduled Test 1984 00:00:00 Tobacco Cessation Counseling and Screening (12+) [code = Tobacco Cessation Counseling and Screening (12+)] [facility] Scheduled Test 1984 00:00:00 Tobacco Cessation Counseling and Screening (12+) [code = Tobacco Cessation Counseling and Screening (12+)] [facility] Scheduled Test 1984 00:00:00 Tobacco Cessation Counseling and Screening (12+) [code = Tobacco Cessation Counseling and Screening (12+)] [facility] Scheduled Test 1972 00:00:00 Screening for malignant neoplasm of breast (procedure) [code = [id number]] [facility] Scheduled Test 1972 00:00:00 CT Colonography (combo) [code = CT Colonography (combo)] [facility] Scheduled Test 1972 00:00:00 Screening for malignant neoplasm of colon (procedure) [code = 554461493] [facility] Scheduled Test 1972 00:00:00 Screening for malignant neoplasm of colon (procedure) [code = 531424545] [facility] Scheduled Test 1972 00:00:00 Screening for malignant neoplasm of colon (procedure) [code = 166849692] [facility] Scheduled Test 1972 00:00:00 Screening for malignant neoplasm of colon (procedure) [code = 658886289] [facility] Scheduled Test 1972 00:00:00 Sigmoidoscopy [code = Sigmoidoscopy] [facility] Scheduled Test 1972 00:00:00 Screening for malignant neoplasm of breast (procedure) [code = 050629701] [facility] Scheduled Test 1972 00:00:00 CT Colonography (combo) [code = CT Colonography (combo)] [facility] Scheduled Test 1972 00:00:00 Screening for malignant neoplasm of colon (procedure) [code = 706693663] [facility] Scheduled Test 1972 00:00:00 Screening for malignant neoplasm of colon (procedure) [code = 501780824] [facility] Scheduled Test 1972 00:00:00 Screening for malignant neoplasm of colon (procedure) [code = 883113512] [facility] Scheduled Test 1972 00:00:00 Screening for malignant neoplasm of colon (procedure) [code = 798158655] [facility] Scheduled Test 1972 00:00:00 Sigmoidoscopy [code = Sigmoidoscopy] [facility] Scheduled Test 1972 00:00:00 Screening for malignant neoplasm of breast (procedure) [code = 320367717] [facility] Scheduled Test 1972 00:00:00 CT Colonography (combo) [code = CT Colonography (combo)] [facility] Scheduled Test 1972 00:00:00 Screening for malignant neoplasm of colon (procedure) [code = 460002045] [facility] Scheduled Test 1972 00:00:00 Screening for malignant neoplasm of colon (procedure) [code = 517912327] [facility] Scheduled Test 1972 00:00:00 Screening for malignant neoplasm of colon (procedure) [code = 090286852] [facility] Scheduled Test 1972 00:00:00 Screening for malignant neoplasm of colon (procedure) [code = 259799879] [facility] Scheduled Test 1972 00:00:00 Sigmoidoscopy [code = Sigmoidoscopy] [facility] Scheduled Test 1972 00:00:00 Screening for malignant neoplasm of breast (procedure) [code = 696510523] [facility] Scheduled Test 1972 00:00:00 CT Colonography (combo) [code = CT Colonography (combo)] [facility] Scheduled Test 1972 00:00:00 Screening for malignant neoplasm of colon (procedure) [code = 790453012] [facility] Scheduled Test 1972 00:00:00 Screening for malignant neoplasm of colon (procedure) [code = 441162725] [facility] Scheduled Test 1972 00:00:00 Screening for malignant neoplasm of colon (procedure) [code = 685456314] [facility] Scheduled Test 1972 00:00:00 Screening for malignant neoplasm of colon (procedure) [code = 469317408] [facility] Scheduled Test 1972 00:00:00 Sigmoidoscopy [code = Sigmoidoscopy] [facility] Scheduled Test 1972 00:00:00 Screening for malignant neoplasm of breast (procedure) [code = 347541943] [facility] Scheduled Test 1972 00:00:00 CT Colonography (combo) [code = CT Colonography (combo)] [facility] Scheduled Test 1972 00:00:00 Screening for malignant neoplasm of colon (procedure) [code = 948116891] [facility] Scheduled Test 1972 00:00:00 Screening for malignant neoplasm of colon (procedure) [code = 025784275] [facility] Scheduled Test 1972 00:00:00 Screening for malignant neoplasm of colon (procedure) [code = 287759888] [facility] Scheduled Test 1972 00:00:00 Screening for malignant neoplasm of colon (procedure) [code = 249313408] [facility] Scheduled Test 1972 00:00:00 Sigmoidoscopy [code = Sigmoidoscopy] [facility] Scheduled Test 1972 00:00:00 Screening for malignant neoplasm of breast (procedure) [code = 754943224] [facility] Scheduled Test 1972 00:00:00 CT Colonography (combo) [code = CT Colonography (combo)] [facility] Scheduled Test 1972 00:00:00 Screening for malignant neoplasm of colon (procedure) [code = 867799229] [facility] Scheduled Test 1972 00:00:00 Screening for malignant neoplasm of colon (procedure) [code = 400349325] [facility] Scheduled Test 1972 00:00:00 Screening for malignant neoplasm of colon (procedure) [code = 529628943] [facility] Scheduled Test 1972 00:00:00 Screening for malignant neoplasm of colon (procedure) [code = 885040365] [facility] Scheduled Test 1972 00:00:00 Sigmoidoscopy [code = Sigmoidoscopy] [facility] Scheduled Test 1972 00:00:00 Screening for malignant neoplasm of breast (procedure) [code = [id number]] [facility] Scheduled Test 1972 00:00:00 CT Colonography (combo) [code = CT Colonography (combo)] [facility] Scheduled Test 1972 00:00:00 Screening for malignant neoplasm of colon (procedure) [code = 620320942] [facility] Scheduled Test 1972 00:00:00 Screening for malignant neoplasm of colon (procedure) [code = 707357580] [facility] Scheduled Test 1972 00:00:00 Screening for malignant neoplasm of colon (procedure) [code = 820368014] [facility] Scheduled Test 1972 00:00:00 Screening for malignant neoplasm of colon (procedure) [code = 718660473] [facility] Scheduled Test 1972 00:00:00 Sigmoidoscopy [code = Sigmoidoscopy] [facility] Scheduled Test 1972 00:00:00 Screening for malignant neoplasm of breast (procedure) [code = 564285381] [facility] Scheduled Test 1972 00:00:00 CT Colonography (combo) [code = CT Colonography (combo)] [facility] Sched[facility] Test 1972 00:00:00 Screening for malignant neoplasm of colon (procedure) [code = 424217534] [facility] Sched[facility] Test 1972 00:00:00 Screening for malignant neoplasm of colon (procedure) [code = 615485855] [facility] Sched[facility] Test 1972 00:00:00 Screening for malignant neoplasm of colon (procedure) [code = 971416527] [facility] Sched[facility] Test 1972 00:00:00 Screening for malignant neoplasm of colon (procedure) [code = 426289774] [facility] Scheduled Test 1972 00:00:00 Sigmoidoscopy [code = Sigmoidoscopy] [facility] Sched[facility] Test 1972 00:00:00 Screening for malignant neoplasm of breast (procedure) [code = 209331790] [facility] Scheduled Test 1972 00:00:00 CT Colonography (combo) [code = CT Colonography (combo)] [facility] Test 1972 00:00:00 Screening for malignant neoplasm of colon (procedure) [code = 600187109] [facility] Sched[facility] Test 1972 00:00:00 Screening for malignant neoplasm of colon (procedure) [code = 067113564] [facility] Test 1972 00:00:00 Screening for malignant neoplasm of colon (procedure) [code = 023252220] [facility] Sched[facility] Test 1972 00:00:00 Screening for malignant neoplasm of colon (procedure) [code = 727154497] [facility] Scheduled Test 1972 00:00:00 Sigmoidoscopy [code = Sigmoidoscopy] [facility] Scheduled Test 1972 00:00:00 Screening for malignant neoplasm of breast (procedure) [code = 698451728] [facility] Scheduled Test 1972 00:00:00 CT Colonography (combo) [code = CT Colonography (combo)] [facility] Sched[facility] Test 1972 00:00:00 Screening for malignant neoplasm of colon (procedure) [code = 230327758] [facility] Scheduled Test 1972 00:00:00 Screening for malignant neoplasm of colon (procedure) [code = 412552008] [facility] Scheduled Test 1972 00:00:00 Screening for malignant neoplasm of colon (procedure) [code = 444339764] [facility] Scheduled Test 1972 00:00:00 Screening for malignant neoplasm of colon (procedure) [code = 328464054] [facility] Sched[facility] Test 1972 00:00:00 Sigmoidoscopy [code = Sigmoidoscopy] [facility] Scheduled Test 1972 00:00:00 Screening for malignant neoplasm of breast (procedure) [code = 008921049] [facility] Scheduled Test 1972 00:00:00 CT Colonography (combo) [code = CT Colonography (combo)] [facility] Test 1972 00:00:00 Screening for malignant neoplasm of colon (procedure) [code = 684777528] [facility] Test 1972 00:00:00 Screening for malignant neoplasm of colon (procedure) [code = 842936088] [facility] Test 1972 00:00:00 Screening for malignant neoplasm of colon (procedure) [code = 314885530] [facility] Sched[facility] Test 1972 00:00:00 Screening for malignant neoplasm of colon (procedure) [code = 116495783] [facility] Test 1972 00:00:00 Sigmoidoscopy [code = Sigmoidoscopy] [facility] Scheduled Test 1972 00:00:00 Screening for malignant neoplasm of breast (procedure) [code = 638465604] [facility] Scheduled Test 1972 00:00:00 CT Colonography (combo) [code = CT Colonography (combo)] [facility] Sched[facility] Test 1972 00:00:00 Screening for malignant neoplasm of colon (procedure) [code = 630289360] [facility] Test 1972 00:00:00 Screening for malignant neoplasm of colon (procedure) [code = 125097104] [facility] Test 1972 00:00:00 Screening for malignant neoplasm of colon (procedure) [code = 069488882] [facility] Test 1972 00:00:00 Screening for malignant neoplasm of colon (procedure) [code = 020202529] [facility] Test 1972 00:00:00 Sigmoidoscopy [code = Sigmoidoscopy] [facility] Test 1972 00:00:00 Screening for malignant neoplasm of breast (procedure) [code = 732072204] [facility] Sched[facility] Test 1972 00:00:00 CT Colonography (combo) [code = CT Colonography (combo)] [facility] Test 1972 00:00:00 Screening for malignant neoplasm of colon (procedure) [code = 590851954] [facility] Test 1972 00:00:00 Screening for malignant neoplasm of colon (procedure) [code = 669033821] [facility] Test 1972 00:00:00 Screening for malignant neoplasm of colon (procedure) [code = 181370092] [facility] Test 1972 00:00:00 Screening for malignant neoplasm of colon (procedure) [code = 160387045] [facility] Test 1972 00:00:00 Sigmoidoscopy [code = Sigmoidoscopy] [facility] Test 1972 00:00:00 Screening for malignant neoplasm of breast (procedure) [code = 395840780] [facility] Sched[facility] Test 1972 00:00:00 CT Colonography (combo) [code = CT Colonography (combo)] [facility] Test 1972 00:00:00 Screening for malignant neoplasm of colon (procedure) [code = 548017079] [facility] Test 1972 00:00:00 Screening for malignant neoplasm of colon (procedure) [code = 573618389] [facility] Test 1972 00:00:00 Screening for malignant neoplasm of colon (procedure) [code = 209742642] [facility] Test 1972 00:00:00 Screening for malignant neoplasm of colon (procedure) [code = 731046262] [facility] Test 1972 00:00:00 Sigmoidoscopy [code = Sigmoidoscopy] [facility] Test 1972 00:00:00 Screening for malignant neoplasm of breast (procedure) [code = 419667656] [facility] Sched[facility] Test 1972 00:00:00 CT Colonography (combo) [code = CT Colonography (combo)] [facility] Test 1972 00:00:00 Screening for malignant neoplasm of colon (procedure) [code = 696342164] [facility] Test 1972 00:00:00 Screening for malignant neoplasm of colon (procedure) [code = 606859299] [facility] Test 1972 00:00:00 Screening for malignant neoplasm of colon (procedure) [code = 194764647] [facility] Test 1972 00:00:00 Screening for malignant neoplasm of colon (procedure) [code = 612300489] [facility] Test 1972 00:00:00 Sigmoidoscopy [code = Sigmoidoscopy] [facility] Test 1972 00:00:00 Screening for malignant neoplasm of breast (procedure) [code = 748154787] [facility] Test 1972 00:00:00 CT Colonography (combo) [code = CT Colonography (combo)] [facility] Test 1972 00:00:00 Screening for malignant neoplasm of colon (procedure) [code = 555827871] [facility] Test 1972 00:00:00 Screening for malignant neoplasm of colon (procedure) [code = 464437113] [facility] Test 1972 00:00:00 Screening for malignant neoplasm of colon (procedure) [code = 463684529] [facility] Test 1972 00:00:00 Screening for malignant neoplasm of colon (procedure) [code = 332530719] [facility] Test 1972 00:00:00 Sigmoidoscopy [code = Sigmoidoscopy] [facility] Test 1972 00:00:00 Screening for malignant neoplasm of breast (procedure) [code = 430641865] [facility] Scheduled Test 1972 00:00:00 CT Colonography (combo) [code = CT Colonography (combo)] [facility] Test 1972 00:00:00 Screening for malignant neoplasm of colon (procedure) [code = 379956773] [facility] Test 1972 00:00:00 Screening for malignant neoplasm of colon (procedure) [code = 998170497] [facility] Test 1972 00:00:00 Screening for malignant neoplasm of colon (procedure) [code = 433890647] [facility] Test 1972 00:00:00 Screening for malignant neoplasm of colon (procedure) [code = 115982518] [facility] Test 1972 00:00:00 Sigmoidoscopy [code = Sigmoidoscopy] [facility] Test 1972 00:00:00 Screening for malignant neoplasm of breast (procedure) [code = 547573924] [facility] Test 1972 00:00:00 CT Colonography (combo) [code = CT Colonography (combo)] [facility] Test 1972 00:00:00 Screening for malignant neoplasm of breast (procedure) [code = 082091784] [facility] Test 1972 00:00:00 CT Colonography (combo) [code = CT Colonography (combo)] [facility] Test 1972 00:00:00 Screening for malignant neoplasm of colon (procedure) [code = 966462521] [facility] Test 1972 00:00:00 Screening for malignant neoplasm of colon (procedure) [code = 698859151] [facility] Test 1972 00:00:00 Screening for malignant neoplasm of colon (procedure) [code = 801555868] [facility] Test 1972 00:00:00 Screening for malignant neoplasm of colon (procedure) [code = 916990107] [facility] Test 1972 00:00:00 Sigmoidoscopy [code = Sigmoidoscopy] [facility] Sched[facility] Test 1972 00:00:00 Screening for malignant neoplasm of colon (procedure) [code = 340572223] [facility] Test 1972 00:00:00 Screening for malignant neoplasm of colon (procedure) [code = 172200488] [facility] Test 1972 00:00:00 Screening for malignant neoplasm of colon (procedure) [code = 990971580] [facility] Test 1972 00:00:00 Screening for malignant neoplasm of colon (procedure) [code = 810954067] [facility] Test 1972 00:00:00 Sigmoidoscopy [code = Sigmoidoscopy] [facility] Test 1972 00:00:00 Screening for malignant neoplasm of breast (procedure) [code = 046434521] [facility] Sched[facility] Test 1972 00:00:00 CT Colonography (combo) [code = CT Colonography (combo)] [facility] Test 1972 00:00:00 Screening for malignant neoplasm of colon (procedure) [code = 007973512] [facility] Test 1972 00:00:00 Screening for malignant neoplasm of colon (procedure) [code = 250376445] [facility] Test 1972 00:00:00 Screening for malignant neoplasm of colon (procedure) [code = 982832974] [facility] Test 1972 00:00:00 Screening for malignant neoplasm of colon (procedure) [code = 555461135] [facility] Test 1972 00:00:00 Sigmoidoscopy [code = Sigmoidoscopy] [facility] Test 1972 00:00:00 Screening for malignant neoplasm of breast (procedure) [code = 544115039] [facility] Sched[facility] Test 1972 00:00:00 CT Colonography (combo) [code = CT Colonography (combo)] [facility] Test 1972 00:00:00 Screening for malignant neoplasm of colon (procedure) [code = 749574928] [facility] Sched[facility] Test 1972 00:00:00 Screening for malignant neoplasm of colon (procedure) [code = 540971747] [facility] Test 1972 00:00:00 Screening for malignant neoplasm of colon (procedure) [code = 563488582] [facility] Test 1972 00:00:00 Screening for malignant neoplasm of colon (procedure) [code = 481050809] [facility] Sched[facility] Test 1972 00:00:00 Sigmoidoscopy [code = Sigmoidoscopy] [facility] Sched[facility] Test 1972 00:00:00 Screening for malignant neoplasm of breast (procedure) [code = 547860103] [facility] Scheduled Test 1972 00:00:00 CT Colonography (combo) [code = CT Colonography (combo)] [facility] Sched[facility] Test 1972 00:00:00 Screening for malignant neoplasm of colon (procedure) [code = 069159357] [facility] Sched[facility] Test 1972 00:00:00 Screening for malignant neoplasm of colon (procedure) [code = 846065365] [facility] Sched[facility] Test 1972 00:00:00 Screening for malignant neoplasm of colon (procedure) [code = 661989816] [facility] Test 1972 00:00:00 Screening for malignant neoplasm of colon (procedure) [code = 431045952] [facility] Test 1972 00:00:00 Sigmoidoscopy [code = Sigmoidoscopy] [facility] Sched[facility] Test 1972 00:00:00 Screening for malignant neoplasm of breast (procedure) [code = 467408774] [facility] Sched[facility] Test 1972 00:00:00 CT Colonography (combo) [code = CT Colonography (combo)] [facility] Test 1972 00:00:00 Screening for malignant neoplasm of colon (procedure) [code = 353925990] [facility] Test 1972 00:00:00 Screening for malignant neoplasm of colon (procedure) [code = 015555822] [facility] Test 1972 00:00:00 Screening for malignant neoplasm of colon (procedure) [code = 204830302] [facility] Test 1972 00:00:00 Screening for malignant neoplasm of colon (procedure) [code = 484015491] [facility] Test 1972 00:00:00 Sigmoidoscopy [code = Sigmoidoscopy] [facility] Sched[facility] Test 1972 00:00:00 Screening for malignant neoplasm of breast (procedure) [code = 295452187] [facility] Scheduled Test 1972 00:00:00 CT Colonography (combo) [code = CT Colonography (combo)] [facility] Test 1972 00:00:00 Screening for malignant neoplasm of colon (procedure) [code = 049434527] [facility] Test 1972 00:00:00 Screening for malignant neoplasm of colon (procedure) [code = 628314423] [facility] Test 1972 00:00:00 Screening for malignant neoplasm of colon (procedure) [code = 425114180] [facility] Test 1972 00:00:00 Screening for malignant neoplasm of colon (procedure) [code = 828796762] [facility] Test 1972 00:00:00 Sigmoidoscopy [code = Sigmoidoscopy] [facility] Sched[facility] Test 1972 00:00:00 Screening for malignant neoplasm of breast (procedure) [code = 185138396] [facility] Test 1972 00:00:00 CT Colonography (combo) [code = CT Colonography (combo)] [facility] Test 1972 00:00:00 Screening for malignant neoplasm of colon (procedure) [code = 082904381] [facility] Test 1972 00:00:00 Screening for malignant neoplasm of colon (procedure) [code = 229446002] [facility] Test 1972 00:00:00 Screening for malignant neoplasm of colon (procedure) [code = 087655579] [facility] Test 1972 00:00:00 Screening for malignant neoplasm of colon (procedure) [code = 450365927] [facility] Test 1972 00:00:00 Sigmoidoscopy [code = Sigmoidoscopy] [facility] Test 1972 00:00:00 Screening for malignant neoplasm of breast (procedure) [code = 743095552] [facility] Test 1972 00:00:00 CT Colonography (combo) [code = CT Colonography (combo)] [facility] Test 1972 00:00:00 Screening for malignant neoplasm of colon (procedure) [code = 303284494] [facility] Test 1972 00:00:00 Screening for malignant neoplasm of colon (procedure) [code = 671817293] [facility] Test 1972 00:00:00 Screening for malignant neoplasm of colon (procedure) [code = 480270995] [facility] Test 1972 00:00:00 Screening for malignant neoplasm of colon (procedure) [code = 994231667] [facility] Test 1972 00:00:00 Screening for malignant neoplasm of breast (procedure) [code = 344592659] [facility] Test 1972 00:00:00 CT Colonography (combo) [code = CT Colonography (combo)] [facility] Sched[facility] Test 1972 00:00:00 Sigmoidoscopy [code = Sigmoidoscopy] [facility] Test 1972 00:00:00 Screening for malignant neoplasm of colon (procedure) [code = 817333017] [facility] Test 1972 00:00:00 Screening for malignant neoplasm of colon (procedure) [code = 708783152] [facility] Test 1972 00:00:00 Screening for malignant neoplasm of colon (procedure) [code = 978897366] [facility] Test 1972 00:00:00 Screening for malignant neoplasm of colon (procedure) [code = 107869992] [facility] Test 1972 00:00:00 Sigmoidoscopy [code = Sigmoidoscopy] [facility] Test 1972 00:00:00 Screening for malignant neoplasm of breast (procedure) [code = 113553346] [facility] Test 1972 00:00:00 CT Colonography (combo) [code = CT Colonography (combo)] [facility] Test 1972 00:00:00 Screening for malignant neoplasm of colon (procedure) [code = 402214767] [facility] Test 1972 00:00:00 Screening for malignant neoplasm of colon (procedure) [code = 702040664] [facility] Test 1972 00:00:00 Screening for malignant neoplasm of colon (procedure) [code = 158641189] [facility] Test 1972 00:00:00 Screening for malignant neoplasm of colon (procedure) [code = 167633889] [facility] Test 1972 00:00:00 Sigmoidoscopy [code = Sigmoidoscopy] [facility] Test 1972 00:00:00 Screening for malignant neoplasm of breast (procedure) [code = 871803578] [facility] Sched[facility] Test 1972 00:00:00 CT Colonography (combo) [code = CT Colonography (combo)] [facility] Test 1972 00:00:00 Screening for malignant neoplasm of colon (procedure) [code = 446317124] [facility] Test 1972 00:00:00 Screening for malignant neoplasm of colon (procedure) [code = 708759080] [facility] Test 1972 00:00:00 Screening for malignant neoplasm of colon (procedure) [code = 437683956] [facility] Test 1972 00:00:00 Screening for malignant neoplasm of colon (procedure) [code = 756566345] [facility] Test 1972 00:00:00 Sigmoidoscopy [code = Sigmoidoscopy] [facility] Test 1972 00:00:00 Screening for malignant neoplasm of breast (procedure) [code = 737408217] [facility] Test 1972 00:00:00 CT Colonography (combo) [code = CT Colonography (combo)] [facility] Test 1972 00:00:00 Screening for malignant neoplasm of colon (procedure) [code = 066172114] [facility] Test 1972 00:00:00 Screening for malignant neoplasm of colon (procedure) [code = 202677281] [facility] Test 1972 00:00:00 Screening for malignant neoplasm of colon (procedure) [code = 037932831] [facility] Test 1972 00:00:00 Screening for malignant neoplasm of colon (procedure) [code = 535911124] [facility] Test 1972 00:00:00 Sigmoidoscopy [code = Sigmoidoscopy] [facility] Test 1972 00:00:00 Screening for malignant neoplasm of breast (procedure) [code = 657292052] [facility] Test 1972 00:00:00 CT Colonography (combo) [code = CT Colonography (combo)] [facility] Test 1972 00:00:00 Screening for malignant neoplasm of colon (procedure) [code = 202409746] [facility] Test 1972 00:00:00 Screening for malignant neoplasm of colon (procedure) [code = 809078786] [facility] Test 1972 00:00:00 Screening for malignant neoplasm of colon (procedure) [code = 989915068] [facility] Test 1972 00:00:00 Screening for malignant neoplasm of colon (procedure) [code = 362672322] [facility] Test 1972 00:00:00 Sigmoidoscopy [code = Sigmoidoscopy] [facility] Test 1972 00:00:00 Screening for malignant neoplasm of breast (procedure) [code = 901647084] [facility] Test 1972 00:00:00 CT Colonography (combo) [code = CT Colonography (combo)] [facility] Test 1972 00:00:00 Screening for malignant neoplasm of colon (procedure) [code = 657339432] [facility] Test 1972 00:00:00 Screening for malignant neoplasm of colon (procedure) [code = 798320709] [facility] Test 1972 00:00:00 Screening for malignant neoplasm of colon (procedure) [code = 150889800] [facility] Test 1972 00:00:00 Screening for malignant neoplasm of colon (procedure) [code = 757011214] [facility] Test 1972 00:00:00 Sigmoidoscopy [code = Sigmoidoscopy] [facility] Test 1972 00:00:00 Screening for malignant neoplasm of breast (procedure) [code = 126077156] [facility] Test 1972 00:00:00 CT Colonography (combo) [code = CT Colonography (combo)] [facility] Test 1972 00:00:00 Screening for malignant neoplasm of colon (procedure) [code = 253998344] [facility] Test 1972 00:00:00 Screening for malignant neoplasm of colon (procedure) [code = 417071685] [facility] Test 1972 00:00:00 Screening for malignant neoplasm of breast (procedure) [code = 016172872] [facility] Test 1972 00:00:00 Screening for malignant neoplasm of colon (procedure) [code = 149143953] [facility] Test 1972 00:00:00 CT Colonography (combo) [code = CT Colonography (combo)] [facility] Test 1972 00:00:00 Screening for malignant neoplasm of colon (procedure) [code = 824942199] [facility] Test 1972 00:00:00 Screening for malignant neoplasm of colon (procedure) [code = 482136551] [facility] 1972 00:00:00 Screening for malignant neoplasm of colon (procedure) [code = 460547075] [facility] Test 1972 00:00:00 Screening for malignant neoplasm of colon (procedure) [code = [id number]] [facility] Scheduled Test 1972 00:00:00 Sigmoidoscopy [code = Sigmoidoscopy] [facility] Sched[facility] Test 1972 00:00:00 Screening for malignant neoplasm of colon (procedure) [code = 251409601] [facility] Scheduled Test 1972 00:00:00 Sigmoidoscopy [code = Sigmoidoscopy] [facility] Scheduled Test 1972 00:00:00 Screening for malignant neoplasm of breast (procedure) [code = 352828575] [facility] Scheduled Test 1972 00:00:00 CT Colonography (combo) [code = CT Colonography (combo)] [facility] Scheduled Test 1972 00:00:00 Screening for malignant neoplasm of colon (procedure) [code = 251547738] [facility] Scheduled Test 1972 00:00:00 Screening for malignant neoplasm of colon (procedure) [code = 188822740] [facility] Sched[facility] Test 1972 00:00:00 Screening for malignant neoplasm of colon (procedure) [code = 814832292] [facility] Sched[facility] Test 1972 00:00:00 Screening for malignant neoplasm of colon (procedure) [code = 251829255] [facility] Sched[facility] Test 1972 00:00:00 Sigmoidoscopy [code = Sigmoidoscopy] [facility] Scheduled Test 1972 00:00:00 Screening for malignant neoplasm of breast (procedure) [code = 226838321] [facility] Sched[facility] Test 1972 00:00:00 CT Colonography (combo) [code = CT Colonography (combo)] [facility] Test 1972 00:00:00 Screening for malignant neoplasm of colon (procedure) [code = 340283397] [facility] Test 1972 00:00:00 Screening for malignant neoplasm of colon (procedure) [code = 995364133] [facility] Test 1972 00:00:00 Screening for malignant neoplasm of colon (procedure) [code = 310401725] [facility] Test 1972 00:00:00 Screening for malignant neoplasm of colon (procedure) [code = 552624083] [facility] Sched[facility] Test 1972 00:00:00 Sigmoidoscopy [code = Sigmoidoscopy] [facility] Sched[facility] Test 1972 00:00:00 Screening for malignant neoplasm of breast (procedure) [code = 156132921] [facility] Scheduled Test 1972 00:00:00 CT Colonography (combo) [code = CT Colonography (combo)] [facility] Test 1972 00:00:00 Screening for malignant neoplasm of colon (procedure) [code = 789974616] [facility] Scheduled Test 1972 00:00:00 Screening for malignant neoplasm of colon (procedure) [code = 099097648] [facility] Sched[facility] Test 1972 00:00:00 Screening for malignant neoplasm of colon (procedure) [code = 799361476] [facility] Sched[facility] Test 1972 00:00:00 Screening for malignant neoplasm of colon (procedure) [code = 405448998] [facility] Scheduled Test 1972 00:00:00 Sigmoidoscopy [code = Sigmoidoscopy] [facility] Sched[facility] Test 1972 00:00:00 Screening for malignant neoplasm of breast (procedure) [code = 942379347] [facility] Scheduled Test 1972 00:00:00 CT Colonography (combo) [code = CT Colonography (combo)] [facility] Test 1972 00:00:00 Screening for malignant neoplasm of colon (procedure) [code = 560101174] [facility] Scheduled Test 1972 00:00:00 Screening for malignant neoplasm of colon (procedure) [code = 851918028] [facility] Test 1972 00:00:00 Screening for malignant neoplasm of colon (procedure) [code = 247188839] [facility] Test 1972 00:00:00 Screening for malignant neoplasm of colon (procedure) [code = 859173216] [facility] Test 1972 00:00:00 Sigmoidoscopy [code = Sigmoidoscopy] [facility] Scheduled Test 1972 00:00:00 Screening for malignant neoplasm of breast (procedure) [code = 363400289] [facility] Scheduled Test 1972 00:00:00 CT Colonography (combo) [code = CT Colonography (combo)] [facility] Test 1972 00:00:00 Screening for malignant neoplasm of colon (procedure) [code = 514027436] [facility] Test 1972 00:00:00 Screening for malignant neoplasm of colon (procedure) [code = 361846456] [facility] Test 1972 00:00:00 Screening for malignant neoplasm of colon (procedure) [code = 688263000] [facility] Scheduled Test 1972 00:00:00 Screening for malignant neoplasm of colon (procedure) [code = 487324595] [facility] Test 1972 00:00:00 Sigmoidoscopy [code = Sigmoidoscopy] [facility] Sched[facility] Test 1972 00:00:00 Screening for malignant neoplasm of breast (procedure) [code = 151763235] [facility] Sched[facility] Test 1972 00:00:00 CT Colonography (combo) [code = CT Colonography (combo)] [facility] Test 1972 00:00:00 Screening for malignant neoplasm of colon (procedure) [code = 323948532] [facility] Test 1972 00:00:00 Screening for malignant neoplasm of colon (procedure) [code = 131068616] [facility] Test 1972 00:00:00 Screening for malignant neoplasm of colon (procedure) [code = 432420911] [facility] Test 1972 00:00:00 Screening for malignant neoplasm of colon (procedure) [code = 698799689] [facility] Test 1972 00:00:00 Sigmoidoscopy [code = Sigmoidoscopy] [facility] Test 1972 00:00:00 Screening for malignant neoplasm of breast (procedure) [code = 444790649] [facility] Test 1972 00:00:00 CT Colonography (combo) [code = CT Colonography (combo)] [facility] Test 1972 00:00:00 Screening for malignant neoplasm of colon (procedure) [code = 547482564] [facility] Test 1972 00:00:00 Screening for malignant neoplasm of colon (procedure) [code = 672017891] [facility] Test 1972 00:00:00 Screening for malignant neoplasm of colon (procedure) [code = 566954688] [facility] Test 1972 00:00:00 Screening for malignant neoplasm of colon (procedure) [code = 654649448] [facility] Test 1972 00:00:00 Sigmoidoscopy [code = Sigmoidoscopy] [facility] Test 1972 00:00:00 Screening for malignant neoplasm of breast (procedure) [code = 945881779] [facility] Test 1972 00:00:00 CT Colonography (combo) [code = CT Colonography (combo)] [facility] Test 1972 00:00:00 Screening for malignant neoplasm of colon (procedure) [code = 321357300] [facility] Test 1972 00:00:00 Screening for malignant neoplasm of colon (procedure) [code = 335518910] [facility] Test 1972 00:00:00 Screening for malignant neoplasm of colon (procedure) [code = 581762678] [facility] Test 1972 00:00:00 Screening for malignant neoplasm of colon (procedure) [code = 001017443] [facility] Test 1972 00:00:00 Sigmoidoscopy [code = Sigmoidoscopy] [facility] Test 1972 00:00:00 Screening for malignant neoplasm of breast (procedure) [code = 037867400] [facility] Test 1972 00:00:00 CT Colonography (combo) [code = CT Colonography (combo)] [facility] Test 1972 00:00:00 Screening for malignant neoplasm of colon (procedure) [code = 266022883] [facility] Test 1972 00:00:00 Screening for malignant neoplasm of colon (procedure) [code = 427861006] [facility] Test 1972 00:00:00 Screening for malignant neoplasm of colon (procedure) [code = 033316095] [facility] Test 1972 00:00:00 Screening for malignant neoplasm of colon (procedure) [code = 895030810] [facility] Test 1972 00:00:00 Sigmoidoscopy [code = Sigmoidoscopy] [facility] Test 1972 00:00:00 Screening for malignant neoplasm of breast (procedure) [code = 638657199] [facility] Test 1972 00:00:00 CT Colonography (combo) [code = CT Colonography (combo)] [facility] Test 1972 00:00:00 Screening for malignant neoplasm of colon (procedure) [code = 417380428] [facility] Test 1972 00:00:00 Screening for malignant neoplasm of colon (procedure) [code = 493676516] [facility] Test 1972 00:00:00 Screening for malignant neoplasm of colon (procedure) [code = 076392264] [facility] Test 1972 00:00:00 Screening for malignant neoplasm of colon (procedure) [code = 925471166] [facility] Test 1972 00:00:00 Sigmoidoscopy [code = Sigmoidoscopy] [facility] Test 1972 00:00:00 Screening for malignant neoplasm of breast (procedure) [code = 989103678] [facility] Sched[facility] Test 1972 00:00:00 CT Colonography (combo) [code = CT Colonography (combo)] [facility] Test 1972 00:00:00 Screening for malignant neoplasm of colon (procedure) [code = 608711743] [facility] Test 1972 00:00:00 Screening for malignant neoplasm of breast (procedure) [code = 017137214] [facility] Test 1972 00:00:00 CT Colonography (combo) [code = CT Colonography (combo)] [facility] Test 1972 00:00:00 Screening for malignant neoplasm of colon (procedure) [code = 200770387] [facility] Test 1972 00:00:00 Screening for malignant neoplasm of colon (procedure) [code = 633783963] [facility] Test 1972 00:00:00 Screening for malignant neoplasm of colon (procedure) [code = 278856706] [facility] Test 1972 00:00:00 Screening for malignant neoplasm of colon (procedure) [code = 362099208] [facility] Test 1972 00:00:00 Sigmoidoscopy [code = Sigmoidoscopy] [facility] Test 1972 00:00:00 Screening for malignant neoplasm of colon (procedure) [code = 350258138] [facility] Test 1972 00:00:00 Screening for malignant neoplasm of colon (procedure) [code = 334755383] [facility] Test 1972 00:00:00 Screening for malignant neoplasm of colon (procedure) [code = 968253662] [facility] Test 1972 00:00:00 Sigmoidoscopy [code = Sigmoidoscopy] [facility] Test 1972 00:00:00 Screening for malignant neoplasm of breast (procedure) [code = 241597860] [facility] Test 1972 00:00:00 CT Colonography (combo) [code = CT Colonography (combo)] [facility] Test 1972 00:00:00 Screening for malignant neoplasm of colon (procedure) [code = 023544630] [facility] Test 1972 00:00:00 Screening for malignant neoplasm of colon (procedure) [code = 530200714] [facility] Test 1972 00:00:00 Screening for malignant neoplasm of colon (procedure) [code = 744613558] [facility] Test 1972 00:00:00 Screening for malignant neoplasm of colon (procedure) [code = 575114731] [facility] Test 1972 00:00:00 Sigmoidoscopy [code = Sigmoidoscopy] [facility] Test 1972 00:00:00 Screening for malignant neoplasm of breast (procedure) [code = 697992410] [facility] Sched[facility] Test 1972 00:00:00 CT Colonography (combo) [code = CT Colonography (combo)] [facility] Test 1972 00:00:00 Screening for malignant neoplasm of colon (procedure) [code = 117851475] [facility] Test 1972 00:00:00 Screening for malignant neoplasm of colon (procedure) [code = 301773147] [facility] Test 1972 00:00:00 Screening for malignant neoplasm of colon (procedure) [code = 709526349] [facility] Test 1972 00:00:00 Screening for malignant neoplasm of colon (procedure) [code = 978495475] [facility] Test 1972 00:00:00 Sigmoidoscopy [code = Sigmoidoscopy] [facility] Sched[facility] Test 1972 00:00:00 Screening for malignant neoplasm of breast (procedure) [code = 290581208] [facility] Sched[facility] Test 1972 00:00:00 CT Colonography (combo) [code = CT Colonography (combo)] [facility] Test 1972 00:00:00 Screening for malignant neoplasm of colon (procedure) [code = 985199243] [facility] Sched[facility] Test 1972 00:00:00 Screening for malignant neoplasm of colon (procedure) [code = 928947823] [facility] Sched[facility] Test 1972 00:00:00 Screening for malignant neoplasm of colon (procedure) [code = 649172686] [facility] Sched[facility] Test 1972 00:00:00 Screening for malignant neoplasm of colon (procedure) [code = 120822298] [facility] Sched[facility] Test 1972 00:00:00 Sigmoidoscopy [code = Sigmoidoscopy] [facility] Scheduled Test 1972 00:00:00 Screening for malignant neoplasm of breast (procedure) [code = 206770505] [facility] Sched[facility] Test 1972 00:00:00 CT Colonography (combo) [code = CT Colonography (combo)] [facility] Test 1972 00:00:00 Screening for malignant neoplasm of colon (procedure) [code = 388631202] [facility] Test 1972 00:00:00 Screening for malignant neoplasm of colon (procedure) [code = 923344711] [facility] Test 1972 00:00:00 Screening for malignant neoplasm of colon (procedure) [code = 725925190] [facility] Test 1972 00:00:00 Screening for malignant neoplasm of colon (procedure) [code = 639196724] [facility] Test 1972 00:00:00 Sigmoidoscopy [code = Sigmoidoscopy] [facility] Test 1972 00:00:00 Screening for malignant neoplasm of breast (procedure) [code = 836363971] [facility] Test 1972 00:00:00 CT Colonography (combo) [code = CT Colonography (combo)] [facility] Test 1972 00:00:00 Screening for malignant neoplasm of colon (procedure) [code = 151188848] [facility] Test 1972 00:00:00 Screening for malignant neoplasm of colon (procedure) [code = 939692356] [facility] Test 1972 00:00:00 Screening for malignant neoplasm of colon (procedure) [code = 396789254] [facility] Test 1972 00:00:00 Screening for malignant neoplasm of colon (procedure) [code = 044714688] [facility] Test 1972 00:00:00 Sigmoidoscopy [code = Sigmoidoscopy] [facility] Test 1972 00:00:00 Screening for malignant neoplasm of breast (procedure) [code = 271334207] [facility] Test 1972 00:00:00 CT Colonography (combo) [code = CT Colonography (combo)] [facility] Test 1972 00:00:00 Screening for malignant neoplasm of colon (procedure) [code = 722816587] [facility] Test 1972 00:00:00 Screening for malignant neoplasm of colon (procedure) [code = 613740140] [facility] Test 1972 00:00:00 Screening for malignant neoplasm of colon (procedure) [code = 509425318] [facility] Test 1972 00:00:00 Screening for malignant neoplasm of colon (procedure) [code = 720554273] [facility] Test 1972 00:00:00 Sigmoidoscopy [code = Sigmoidoscopy] [facility] Test 1972 00:00:00 Screening for malignant neoplasm of breast (procedure) [code = 275933798] [facility] Test 1972 00:00:00 CT Colonography (combo) [code = CT Colonography (combo)] [facility] Test 1972 00:00:00 Screening for malignant neoplasm of colon (procedure) [code = 817841662] [facility] Test 1972 00:00:00 Screening for malignant neoplasm of colon (procedure) [code = 683886212] [facility] Test 1972 00:00:00 Screening for malignant neoplasm of colon (procedure) [code = 267196591] [facility] Test 1972 00:00:00 Screening for malignant neoplasm of colon (procedure) [code = 955343131] [facility] Test 1972 00:00:00 Sigmoidoscopy [code = Sigmoidoscopy] [facility] Test 1972 00:00:00 Screening for malignant neoplasm of breast (procedure) [code = 662323018] [facility] Test 1972 00:00:00 CT Colonography (combo) [code = CT Colonography (combo)] [facility] Test 1972 00:00:00 Screening for malignant neoplasm of colon (procedure) [code = 754270499] [facility] Test 1972 00:00:00 Screening for malignant neoplasm of colon (procedure) [code = 555568826] [facility] Test 1972 00:00:00 Screening for malignant neoplasm of colon (procedure) [code = 504738717] [facility] Test 1972 00:00:00 Screening for malignant neoplasm of colon (procedure) [code = 805620378] [facility] Test 1972 00:00:00 Sigmoidoscopy [code = Sigmoidoscopy] [facility] Test 1972 00:00:00 Screening for malignant neoplasm of breast (procedure) [code = 376709938] [facility] Test 1972 00:00:00 CT Colonography (combo) [code = CT Colonography (combo)] [facility] Test 1972 00:00:00 Screening for malignant neoplasm of colon (procedure) [code = 126957086] [facility] Test 1972 00:00:00 Screening for malignant neoplasm of colon (procedure) [code = 621105152] [facility] Test 1972 00:00:00 Screening for malignant neoplasm of colon (procedure) [code = 016346050] [facility] Test 1972 00:00:00 Screening for malignant neoplasm of colon (procedure) [code = 756336191] [facility] Test 1972 00:00:00 Sigmoidoscopy [code = Sigmoidoscopy] [facility] Test 1972 00:00:00 Screening for malignant neoplasm of breast (procedure) [code = 712243148] [facility] Test 1972 00:00:00 CT Colonography (combo) [code = CT Colonography (combo)] [facility] Test 1972 00:00:00 Screening for malignant neoplasm of colon (procedure) [code = 851347652] [facility] Test 1972 00:00:00 Screening for malignant neoplasm of colon (procedure) [code = 573290524] [facility] Test 1972 00:00:00 Screening for malignant neoplasm of colon (procedure) [code = 738815252] [facility] Test 1972 00:00:00 Screening for malignant neoplasm of colon (procedure) [code = 498445798] [facility] Test 1972 00:00:00 Sigmoidoscopy [code = Sigmoidoscopy] [facility] Test 1972 00:00:00 Screening for malignant neoplasm of breast (procedure) [code = 955212214] [facility] Test 1972 00:00:00 CT Colonography (combo) [code = CT Colonography (combo)] [facility] Test 1972 00:00:00 Screening for malignant neoplasm of colon (procedure) [code = 204508582] [facility] Test 1972 00:00:00 Screening for malignant neoplasm of colon (procedure) [code = 455619650] [facility] Test 1972 00:00:00 Screening for malignant neoplasm of colon (procedure) [code = 674495883] [facility] Test 1972 00:00:00 Screening for malignant neoplasm of colon (procedure) [code = 322230611] [facility] Test 1972 00:00:00 Sigmoidoscopy [code = Sigmoidoscopy] [facility] Test 1972 00:00:00 Screening for malignant neoplasm of breast (procedure) [code = 607024872] [facility] Test 1972 00:00:00 CT Colonography (combo) [code = CT Colonography (combo)] [facility] Test 1972 00:00:00 Screening for malignant neoplasm of colon (procedure) [code = 157688734] [facility] Test 1972 00:00:00 Screening for malignant neoplasm of colon (procedure) [code = 615381350] [facility] Test 1972 00:00:00 Screening for malignant neoplasm of colon (procedure) [code = 855961620] [facility] Test 1972 00:00:00 Screening for malignant neoplasm of colon (procedure) [code = 973130927] [facility] Test 1972 00:00:00 Sigmoidoscopy [code = Sigmoidoscopy] [facility] Test 1972 00:00:00 Screening for malignant neoplasm of breast (procedure) [code = 497978762] [facility] Test 1972 00:00:00 CT Colonography (combo) [code = CT Colonography (combo)] [facility] Test 1972 00:00:00 Screening for malignant neoplasm of colon (procedure) [code = 480363837] [facility] Test 1972 00:00:00 Screening for malignant neoplasm of colon (procedure) [code = 613247534] [facility] Test 1972 00:00:00 Screening for malignant neoplasm of colon (procedure) [code = 016024979] [facility] Test 1972 00:00:00 Screening for malignant neoplasm of colon (procedure) [code = 841031795] [facility] Test 1972 00:00:00 Sigmoidoscopy [code = Sigmoidoscopy] [facility] Test 1972 00:00:00 Screening for malignant neoplasm of breast (procedure) [code = 363654530] [facility] Test 1972 00:00:00 CT Colonography (combo) [code = CT Colonography (combo)] [facility] Test 1972 00:00:00 Screening for malignant neoplasm of colon (procedure) [code = 880620187] [facility] Test 1972 00:00:00 Screening for malignant neoplasm of colon (procedure) [code = 099598778] [facility] Test 1972 00:00:00 Screening for malignant neoplasm of colon (procedure) [code = 291572552] [facility] Test 1972 00:00:00 Screening for malignant neoplasm of colon (procedure) [code = 323535768] [facility] Test 1972 00:00:00 Sigmoidoscopy [code = Sigmoidoscopy] [facility] Test 1972 00:00:00 Screening for malignant neoplasm of breast (procedure) [code = 780684553] [facility] Test 1972 00:00:00 CT Colonography (combo) [code = CT Colonography (combo)] [facility] Test 1972 00:00:00 Screening for malignant neoplasm of colon (procedure) [code = 814004942] [facility] Test 1972 00:00:00 Screening for malignant neoplasm of colon (procedure) [code = 389217638] [facility] Test 1972 00:00:00 Screening for malignant neoplasm of colon (procedure) [code = 275698482] [facility] 1972 00:00:00 Screening for malignant neoplasm of colon (procedure) [code = 438361631] [facility] 1972 00:00:00 Sigmoidoscopy [code = Sigmoidoscopy] [facility] Goal Plan of Care Not e [code = 60290-5] Goal Plan of Care Not e [code = 78831-9] Goal Plan of Care Not e [code = 00558-7] Goal Plan of Care Not e [code = 37142-5] Goal Plan of Care Not e [code = 89683-7] Goal Plan of Care Not e [code = 81760-0] Goal Plan of Care Not e [code = 53151-6] Goal Plan of Care Not e [code = 56628-1] Goal Plan of Care Not e [code = 10506-6] Goal Plan of Care Not e [code = 48107-7] Goal Plan of Care Not e [code = 89223-0] Goal Plan of Care Not e [code = 10445-8] Goal Plan of Care Not e [code = 04547-8] Goal Plan of Care Not e [code = 46029-0] Goal Plan of Care Not e [code = 42982-3] Goal Plan of Care Not e [code = 62270-4] Goal Plan of Care Not e [code = 48802-1] Goal Plan of Care Not e [code = 36831-6] Goal Plan of Care Not e [code = 79424-5] Goal Plan of Care Not e [code = 35566-9] Goal Plan of Care Not e [code = 01689-4] Goal Plan of Care Not e [code = 01679-0] Goal Plan of Care Not e [code = 03492-7] Goal Plan of Care Not e [code = 60995-8] Goal Plan of Care Not e [code = 07009-7] Goal Plan of Care Not e [code = 42748-8] Goal Plan of Care Not e [code = 02099-5] Goal Plan of Care Not e [code = 69981-7] Goal Plan of Care Not e [code = 71983-9] Goal Plan of Care Not e [code = 80344-7] Goal Plan of Care Not e [code = 43103-8] Goal Plan of Care Not e [code = 45012-5] Goal Plan of Care Not e [code = 27280-9] Goal Plan of Care Not e [code = 21370-8] Goal Plan of Care Not e [code = 75614-9] Encounters Start Date/Time End Date/Time Encounter Type Admission Type Attending Clinicians [facility] Facility Care Department Encounter ID Source 2023-09-07 10:11:03 [facility] [id number] [facility] 2023-09-05 10:08:27 [facility] [id number] [facility] 2023-09-05 10:05:12 [facility] [id number] [facility] 2023-09-04 04:51:30 Inpatient PANKAJ PARRISH [facility] [id number] [facility] 2023-09-04 04:14:55 Inpatient PANKAJ PARRISH [facility] [id number] [facility] 2023-09-04 03:08:45 Inpatient PANKAJ PARRISH [facility] [id number] [facility] 2023-09-04 02:36:28 Inpatient PANKAJ PARRISH [facility] [id number] [facility] 2023-06-16 09:32:36 Inpatient [facility]E [facility]ICKENS [facility] [id number] [facility] 2023-06-16 09:32:09 Inpatient AYDEE DICKENS [facility] [id number] [facility] 2023-06-16 09:31:53 Inpatient AYDEE DICKENS [facility] [id number] [facility] 2023-06-14 07:46:02 Inpatient AYDEE DICKENS [facility] [id number] [facility] 2023-06-14 07:39:22 Inpatient AYDEE DICKENS [facility] [id number] [facility] 2023-06-14 06:38:38 Inpatient AYDEE DICKENS [facility] [id number] [facility] 2023-06-13 13:44:18 Inpatient EL CARA BURGESS [facility] [id number] [facility] 2023-06-13 11:45:24 Inpatient AYDEE DICKENS [facility] [id number] [facility] 2023-05-08 11:21:00 Outpatient EL ADAM GARCIA [facility] Surgery [id number] [facility] 2023-04-01 14:26:29 Inpatient ER THOMAS LOZOYA [facility] [id number] [facility] 2023-03-31 09:24:52 Inpatient ER MARIAH ALDRIDGE [facility] [id number] [facility] 2021-05-20 18:48:04 Emergency [facility] [id number] [facility] 2021-05-20 12:43:40 Emergency [facility] [id number] [facility] 2023-11-12 15:15:00 2023-11-12 15:15:00 Outpatient GUSTAVO DELANEY [id number] [facility] 2023-11-10 09:30:00 2023-11-10 09:30:00 Outpatient MYLA MIJARES [id number] [facility] 2023-10-29 00:00:00 2023-10-29 00:00:00 Outpatient GUSTAVO DELANEY [id number] [facility] 2023-10-26 00:00:00 2023-10-26 00:00:00 Outpatient EFRA BABCOCK [id number] [facility] 2023-10-22 00:00:00 2023-10-22 00:00:00 Outpatient GUSTAVO DELANEY [id number] [facility] 2023-10-16 11:10:00 2023-10-16 11:10:00 Outpatient SIDDHARTH STANFORD [id number] [facility] 2023-10-15 00:00:00 2023-10-15 00:00:00 Outpatient MD CYNTHIA MARLEY [id number] [facility] 2023-10-15 00:00:00 2023-10-15 00:00:00 Outpatient GUILLENSHY PIECRE CYNTHIA MTZ [id number] [facility] 2023-10-15 00:00:00 2023-10-15 00:00:00 Outpatient SHY GUILLEN CYNTHIA MTZ [id number] [facility] 2023-10-06 10:45:00 2023-10-06 10:45:00 Outpatient IAN JULESAN CYNTHIA MTZ [id number] [facility] 2023-10-05 11:30:00 2023-10-05 11:30:00 Outpatient PREZAS, GUSTAVO CYNTHIA MTZ [id number] [facility] 2023-10-01 00:00:00 2023-10-01 00:00:00 Outpatient PREZAS, GUSTAVO MTZ [id number] [facility] 2023-09-30 14:15:00 2023-09-30 14:15:00 Outpatient PREZAS, GUSTAVO CYNTHIA MTZ [id number] [facility] 2023-09-24 00:00:00 2023-09-24 00:00:00 Outpatient PREZAS, GUSTAVO CYNTHIA MTZ [id number] [facility] 2023-09-23 00:00:00 2023-09-23 00:00:00 Outpatient TIFFANY PUENTE [id number] [facility] 2023-09-22 00:00:00 2023-09-22 00:00:00 Outpatient PREZAS, GUSTAVO CYNTHIA MTZ [id number] [facility]thia [facility] 2023-09-22 00:00:00 2023-09-22 00:00:00 Outpatient GUILLENSHY PIERCE CYNTHIA MTZ [id number] [facility] 2023-09-16 00:00:00 2023-09-16 00:00:00 Outpatient PREZAS, GUSTAVO CYNTHIA MTZ [id number] [facility] 2023-09-16 00:00:00 2023-09-16 00:00:00 Outpatient PREZAS GUSTAVO CYNTHIA MTZ [id number] [facility] 00:00:00 2023-09-16 00:00:00 Outpatient GUSTAVO DELANEY [facility] MTZ [id number] [facility] 2023-09-14 00:00:00 2023-09-14 00:00:00 Outpatient SHY GUILLEN CYNTHIA MTZ [id number] [facility] 2023-09-14 00:00:00 2023-09-14 00:00:00 Outpatient SHY GUILLEN CYNTHIA MTZ [id number] [facility] 2023-09-11 11:00:00 2023-09-11 11:00:00 Outpatient BJYONATAN CYNTHIA MTZ [id number] [facility] 2023-09-09 00:00:00 2023-09-09 00:00:00 Outpatient CYNTHIA MTZ [id number] [facility] 2023-09-04 00:14:00 2023-09-08 10:51:00 Hospital Encounter ER London Loyola, Pankaj Fry Selin Sosa [facility] [id number] [facility] 2023-09-04 00:14:00 2023-09-08 10:51:00 Inpatient ER SELIN FERRER DEISI Neurosurger y [id number] [facility] 2023-09-07 18:41:43 2023-09-07 18:41:43 Outpatient NICOLETTE SELIN FERRER DEISI [facility] [id number] [facility] 2023-09-03 20:52:00 2023-09-03 23:44:00 Emergency ER TACOJUANY CORREA [facility] [id number] [facility] 2023-09-03 20:52:00 2023-09-03 23:44:00 emergency [facility] [id number] 2023-09-02 00:00:00 2023-09-02 00:00:00 Outpatient TIFFANY PUENTE [id number] [facility] 2023-09-01 15:30:00 2023-09-01 15:30:00 Outpatient SUNILDEMETRIUS CYNTHIA MTZ [id number] [facility] 2023-08-19 00:00:00 2023-08-19 00:00:00 Outpatient KETAN CALVILLO [facility] [id number] [facility] 2023-08-13 00:00:00 2023-08-13 00:00:00 Orders Only Ketan Scruggs [facility] [id number] [facility] 2023-08-12 13:49:00 2023-08-12 16:12:00 Emergency X BRIAN BRYAN HIKEVIN ERT [id number] [facility] 2023-08-12 13:49:00 2023-08-12 16:12:00 Emergency Brian Bryan [facility]KEVIN [facility] 1.2.840.114 350.1.13.10 4.2.7.2.686 [id number] [facility] 2023-06-13 03:43:00 2023-06-16 19:45:00 Hospital Encounter ER Cara Burgess Sahar [facility] [id number] [facility] 2023-06-13 03:43:00 2023-06-16 19:45:00 Inpatient ER AYDEE GO [facility] Internal Med [id number] [facility] 2023-06-15 00:00:00 2023-06-15 00:00:00 Orders Only System, Provider Not In [facility] [id number] [facility] 2023-06-13 16:30:06 2023-06-13 16:30:06 Outpatient AYDEE DICKENS [facility] [id number] [facility] 2023-06-13 00:00:00 2023-06-13 00:00:00 Orders Only [facility] [id number] [facility] 2023-06-13 00:00:00 2023-06-13 00:00:00 Travel [facility] [id number] [facility] 2023-06-12 00:00:00 2023-06-12 00:00:00 Telephone [place] Gomez [facility] [id number] [facility] 2023-05-28 06:45:00 2023-06-04 17:36:00 Hospital Encounter Adam Brantley [facility] [id number] [facility] 2023-05-28 06:45:00 2023-06-04 17:36:00 [facility] [id number] [facility] 2023-06-01 09:10:00 2023-06-01 13:00:00 Anesthesia Event Harry Newsome Mujtaba Yolettebari [facility] [id number] [facility] 2023-06-01 09:00:00 2023-06-01 11:30:00 Surgery Adam Garcia [facility] [id number] [facility] 2023-06-01 09:47:57 2023-06-01 09:47:57 Outpatient ADAM BRANTLEY [facility] [id number] [facility] 2023-06-01 09:40:34 2023-06-01 09:40:34 Outpatient ADAM BRANTLEY [facility] [id number] [facility] 2023-05-31 09:25:55 2023-05-31 23:59:00 Inpatient ADAM BRANTLEY [facility] [id number] [facility] 2023-05-31 09:00:00 2023-05-31 23:59:00 Hospital Encounter Adam Garcia [facility] [id number] [facility] 2023-05-28 18:15:29 2023-05-28 18:15:29 Outpatient ADAM BRANTLEY [facility] [id number] [facility] 2023-05-28 08:30:00 2023-05-28 11:54:00 Anesthesia Event Yue Bui [facility] [id number] [facility] 2023-05-28 11:41:14 2023-05-28 11:41:14 Outpatient ADAM [facility]ANTLEY [facility] [id number] [facility] 2023-05-28 08:30:00 2023-05-28 11:00:00 Surgery Adam Garcia [facility] [id number] [facility] 2023-05-28 10:00:47 2023-05-28 10:00:47 Outpatient ADAM BRANTLEY [facility] [id number] [facility] 2023-05-28 00:00:00 2023-05-28 00:00:00 Travel [facility] [id number] [facility] 2023-05-26 09:00:00 2023-05-26 09:00:00 Hospital Encounter Adam Garcia [facility] [id number] [facility] 2023-05-26 00:00:00 2023-05-26 00:00:00 Outpatient ADAM BRANTLEY [facility] [id number] [facility] 2023-05-26 00:00:00 2023-05-26 00:00:00 Outpatient NICOLETTE [facility] [id number] [facility] 2023-05-26 00:00:00 2023-05-26 00:00:00 Travel [facility] [id number] [facility] 2023-05-13 11:43:03 2023-05-13 11:43:03 Outpatient SFA [facility]FA Tanesha5 Adria Martínez 2023-05-12 00:00:00 2023-05-12 00:00:00 Orders Only Adam Garcia [facility] [id number] [facility] 2023-05-08 14:11:21 2023-05-08 14:11:21 Outpatient SFA [facility]FA 1020 Adria Martínez 2023-03-29 19:25:00 2023-04-02 20:48:00 Hospital Encounter Connie Gunter, Mariah ValerioThomas oshea [facility] [id number] [facility] 2023-03-29 19:25:00 2023-04-02 20:48:00 Inpatient ER THOMAS LOZOYA [facility] [id number] [facility] 2023-03-31 08:32:56 2023-03-31 00:00:00 Inpatient ER MARIAH ALDRIDGE [facility] [id number] [facility] 2023-03-30 10:24:12 2023-03-30 23:59:00 Outpatient ER CONNIE DAVEY [facility]igober[facility] [id number] [facility] 2023-03-30 09:40:00 2023-03-30 23:59:00 Hospital Encounter Connie Davey [facility] [id number] [facility] 2023-03-30 13:46:20 2023-03-30 13:46:20 Outpatient ER MARIAH ALDRIDGE [facility] [id number] [facility] 2023-03-30 13:46:14 2023-03-30 13:46:14 Outpatient ER MARIAH ALDRIDGE [facility] [id number] [facility] 2023-03-30 10:24:04 2023-03-30 10:24:04 Outpatient ER CONNIE DAVEY [facility] [id number] [facility] 2023-03-30 00:00:00 2023-03-30 00:00:00 Orders Only [facility] [id number] [facility] 2023-03-30 00:00:00 2023-03-30 00:00:00 Travel [facility] [id number] [facility] 2022-12-11 08:56:00 2022-12-11 15:29:00 Emergency X Alfonso ALVARADO [facility] ERT [id number] [facility] 2022-12-11 08:56:00 2022-12-11 15:29:00 Emergency Alfonso Alvarado [facility] 1.2.840.114 350.1.13.10 4.2.7.2.686 [id number] [facility] 2022-11-17 17:25:00 2022-11-18 01:19:00 Emergency X RITCHIE WARREN [facility] ERT [id number] [facility] 2022-11-17 17:25:00 2022-11-18 01:19:00 Emergency Ritchie Warren [facility] 1.2.840.114 350.1.13.10 4.2.7.2.686 [id number] [facility] 2022-08-28 00:00:00 2022-08-28 00:00:00 Patient Outreach Shy Beckman 1.2.840.114 350.1.13.10 4.2.7.2.686 [id number] [facility] 2022-08-20 00:00:00 2022-08-20 00:00:00 Patient Outreach Shy Beckman 1.2.840.114 350.1.13.10 4.2.7.2.686 [id number] [facility] 2022-08-02 17:30:00 2022-08-03 14:29:00 Hospital Encounter Halima Guan Kinjal M Ibe, Chimkama Ngozi Cynthia [facility] [id number] [facility] 2022-08-02 17:30:00 2022-08-03 14:29:00 Outpatient ER PARRISH WHEATLEY [facility] Neurology [id number] [facility] 2022-08-03 00:00:00 2022-08-03 00:00:00 Orders Only [facility] [id number] [facility] 2022-08-02 00:00:00 2022-08-02 00:00:00 Travel [facility] [id number] [facility] 2022-07-31 11:42:00 2022-08-01 21:48:00 Inpatient X ESSENCE LORENZA [facility] [id number] [facility] 2022-07-31 11:42:00 2022-08-01 21:48:00 Hospital Encounter Sav Rondon Lorenza [facility] 1.2.840.114 350.1.13.10 4.2.7.2.686 [id number] [facility] 2022-08-01 00:00:00 2022-08-01 00:00:00 Transition of Care Maria Teresa Nicole 1.2.840.114 350.1.13.10 4.2.7.2.686 [id number] [facility] 2022-07-28 14:41:38 2022-07-28 14:41:38 Outpatient SFA [facility] [id number] Adria F Mauricio 2022-07-28 00:00:00 2022-07-28 00:00:00 Outpatient Visit [id number] 2022-07-24 13:24:40 2022-07-24 13:24:40 Outpatient SFA [facility] [id number] Adria F Mauricio 2022-05-23 14:51:01 2022-05-23 14:51:01 Outpatient SFA [facility] 1104 Adria F Mauricio 2022-05-23 00:00:00 2022-05-23 00:00:00 Outpatient Visit [id number] [id number] 2022-05-04 20:22:00 2022-05-08 14:44:00 Outpatient X CHANTEL BOJORQUEZ [facility] [id number] [facility] 2022-05-04 20:22:00 2022-05-08 14:44:00 [facility] 1.2840.114 350.1.13.10 4.2.7.2.686 [id number] [facility] 2022-04-13 13:06:00 2022-04-15 15:00:00 Inpatient X [facility] [id number] [facility] 2022-04-13 13:06:00 2022-04-15 15:00:00 Hospital Encounter Spana Vargas Muhammad Zeeshan [facility] 1.2840.114 350.1.13.10 4.2.7.2.686 [id number] [facility] 2022-02-19 10:20:00 2022-02-19 10:30:00 Imm/Inj Visit [facility] Dangelo Pak [facility] 1.84.114 350.1.13.10 4.2.7.2.686 [id number] [facility] 2022-02-19 10:20:00 2022-02-19 10:20:00 Outpatient JOSE MENDOZA [facility] [id number] [facility] 2021-11-23 15:07:00 2021-11-23 17:03:00 Emergency X NICHELLE VIRK [facility] ERT [id number] [facility] 2021-11-23 15:07:00 2021-11-23 17:03:00 Emergency Sav Rondon Folusho F [facility] 1.2840.114 350.1.13.10 4.2.7.2.686 [id number] [facility] 2021-11-21 09:40:00 2021-11-21 09:40:00 Outpatient R [facility] [id number] [facility] 2021-05-24 09:30:00 2021-05-24 09:30:00 Outpatient R JOSE PAK [facility] [id number] [facility] 2021-05-24 08:47:51 2021-05-24 08:57:51 Imm/Inj Visit Vaccine, [place] Dangelo Pak [facility] 1.2840.114 350.1.13.10 4.2.7.2.686 [id number] [facility] 2021-05-03 09:40:00 2021-05-03 09:59:35 Outpatient R JOSE PAK [facility] [id number] [facility] 2021-05-03 09:17:43 2021-05-03 09:59:35 Imm/Inj Visit Vaccine, [place] Dangelo Pak [facility] 1.2840.114 350.1.13.10 4.2.7.2.686 [id number] [facility] 2021-04-16 00:00:00 2021-04-16 00:00:00 Orders Only Doctor Unassigned, [place] [facility] 1.2.840.114 350.1.13.10 4.2.7.2.686 [id number] [facility] 2021-03-17 00:00:00 2021-03-17 00:00:00 Telephone Miky Nava [facility] 1.2.840.114 350.1.13.10 4.2.7.2.686 [id number] [facility] 2021-03-16 20:08:00 2021-03-16 23:24:00 Emergency Fabrice Chakraborty [facility] 1.2.840.114 350.1.13.10 4.2.7.2.686 [id number] [facility] 2021-03-14 18:59:34 2021-03-14 20:19:13 Urgent Care DannyLydia conde Unknown, Attending [facility] 1.2.840.114 350.1.13.10 4.2.7.2.686 [id number] [facility] 2021-03-14 19:00:00 2021-03-14 19:00:00 Outpatient R UNKNOWN, ATTENDING [facility] [id number] [facility] 2021-02-19 10:49:00 2021-02-19 14:48:00 Emergency Monroy Anali S [facility] 1.2.840.114 350.1.13.10 4.2.7.2.686 [id number] [facility] 2019-03-09 00:00:00 2019-03-09 00:00:00 Darielakimberley Isrrael Yehuda [facility] 1.2.840.114 350.1.13.10 4.2.7.2.686 [id number] 2019-03-09 00:00:00 2019-03-09 00:00:00 Dick IbarraocheYehuda [facility] 1.2.840.114 350.1.13.10 4.2.7.2.686 [id number] [facility] Results Test Description Test Time Test Comments Results Result Co mments Source BLOOD [id number] 07:00:10* Test Item Value Reference Range Interpretation Comme nts CULTURE (BEAKER) (test code = 1095) No growth in 5 days XR KNEE 3 VIEWS [id number] 09:27:[address] [facility] [facility] : 1970 Sex: FXR KNEE 3 VIEWS LEFT CLINICAL INDICATION: S/p fall COMPARISON: NoneFINDINGS: 3views of the left knee.There is no fracture or malalignment. The femorotibial andfemoropatellar joint spaces are intact.No joint fluid is demonstrated.Surrounding soft tissues are unremarkable. Scattered atheroscleroticvascular calcifications.IMPRESSION: No acute fracture or malalignment of the knee Electronically Signed By: Maxim Sultana09/08/2023 09:29 CDTWorkstation Name: [id number] 08:53:50* Test Item Value Reference Range Interpretation Comme nts POC-Glucose Meter (test code = 1538) 101 mg/dL 70-110 : TESTED [address], [address]: Audio Visual Aids Director/Artificial Flowers Dyer ID = [id number] for Umeh, Akumbu Lab Interpretation (test code = 47006-0) [facility] [id number] 08:53:50* Test Item Value Reference Range Interpretation Comme nts POC-Glucose Meter (test code = 1538) 101 mg/dL 70-110 : TESTED AT [address], [address]: Audio Visual Aids Director/Artificial Flowers Dyer ID = [id number] for Umeh, Akumbu Lab Interpretation (test code = 14429-3) [facility] [id number] 08:53:50* Test Item Value Reference Range Interpretation Comme nts POC-Glucose Meter (test code = 1538) 101 mg/dL 70-110 : TESTED AT [address], [address]: Audio Visual Aids Director/Artificial Flowers Dyer ID = [id number] for Umeh, Akumbu Lab Interpretation (test code = 68293-4) [facility] [id number] 08:53:50* Test Item Value Reference Range Interpretation Comme nts POC-Glucose Meter (test code = 1538) 101 mg/dL 70-110 : TESTED AT [address], [address]: Audio Visual Aids Director/Artificial Flowers Dyer ID = [id number] for Umeh, Akumbu Lab Interpretation (test code = 93909-1) [facility] [id number] 08:53:50* Test Item Value Reference Range Interpretation Comme nts POC-Glucose Meter (test code = 1538) 101 mg/dL 70-110 : TESTED AT [address], [address]: Audio Visual Aids Director/Artificial Flowers Dyer ID = [id number] for Umeh, Akumbu Lab Interpretation (test code = 12959-5) [facility] [id number] 08:53:50* Test Item Value Reference Range Interpretation Comme nts POC-Glucose Meter (test code = 1538) 101 mg/dL 70-110 : TESTED AT [address], [address]: Audio Visual [employer] Director/Artificial Flowers Dyer ID = [id number] for Umeh, Akumbu Lab Interpretation (test code = 50406-7) [facility] [id number] 08:53:50* Test Item Value Reference Range Interpretation Comme nts POC-Glucose Meter (test code = 1538) 101 mg/dL 70-110 : TESTED AT [address], [address]: Audio Visual Aids Director/Artificial Flowers Dyer ID = [id number] for Umeh, Akumbu Lab Interpretation (test code = 86973-8) [facility] [id number] 08:53:50* Test Item Value Reference Range Interpretation Comme nts POC-Glucose Meter (test code = 1538) 101 mg/dL 70-110 : TESTED AT [address], [address]: Audio Visual Aids Director/Artificial Flowers Dyer ID = [id number] for Umeh, Akumbu Lab Interpretation (test code = 96706-4) [facility] [id number] 08:53:50* Test Item Value Reference Range Interpretation Comme nts POC-Glucose Meter (test code = 1538) 101 mg/dL 70-110 : TESTED AT [facility] [address] [facility], [address]: Audio Visual Aids Director/Artificial Flowers Dyer ID = [id number] for Umeh, Akumbu Lab Interpretation (test code = 41330-2) [facility] [id number] 08:53:50* Test Item Value Reference Range Interpretation Comme nts POC-Glucose Meter (test code = 1538) 101 mg/dL 70-110 : TESTED AT [place] [id number] [facility], [address]: Audio Visual A[employer] Director/Artificial Flowers Dyer ID = [id number] for Umeh, Akumbu Lab Interpretation (test code = 69946-3) [facility] [id number] 08:53:50* Test Item Value Reference Range Interpretation Comme nts POC-GLUCOSE METER (BEAKER) (test code = 1538) 101 mg/dL 70-110 : TESTED AT [place] [id number] [facility], [address]: Audio Visual Aids Director/Artificial Flowers Dyer ID = [id number] for Umeh, Larryumbu BASIC METABOLIC [id number] 05:40:45* Test Item Value Reference Range Interpretation [...] GFR is not applicable for dialysis patients Audio Visual Aids Director ID - [id number] 05:40:45* Test Item Value Reference Range Interpretation Comme nts MAGNESIUM (BEAKER) (test cod e = 627) 2.1 mg/dL 1.6-2.6 Audio Visual Aids Director ID - [id number] 05:40:45* Test Item Value Reference Range Interpretation Comme nts PHOSPHORUS (BEAKER) (test co de = 604) 5.0 mg/dL 2.3-4.7 H Audio Visual Aids Director ID - ADMINCBC W/PLT COUNT & AUTO [id number] 04:49:23* Test Item Value Reference Range Interpretation [...] code = 2801) 0.40 % 0.00-1.00 POCT-GLUCOSE [id number] 21:40:23* Test Item Value Reference Range Interpretation Comme nts POC-GLUCOSE METER (BEAKER) (test code = 1538) 144 mg/dL 70-110 H : TESTED AT [facility] [address] [facility], [address]: Audio Visual Aids Director/Artificial Flowers Dyer ID = [id number] for Diana Baeza [id number] 04:05:54* Test Item Value Reference Range Interpretation Comme nts MAGNESIUM (BEAKER) (test code = 627) 2.0 mg/dL 1.6-2.6 Specimen sligh tly hemolyzed Audio Visual Aids Director ID - MADELINE [id number] 04:05:54* Test Item Value Reference Range Interpretation Comme nts PHOSPHORUS (BEAKER) (test code = 604) 4.5 mg/dL 2.3-4.7 Specimen sligh tly hemolyzed Audio Visual Aids Director ID - MADELINE WBASIC METABOLIC [id number] 04:05:54* Test Item Value Reference Range Interpretation [...] GFR is not applicable for dialysis patients Audio Visual Aids Director ID - MADELINE WCBC W/PLT COUNT & AUTO [id number] 03:40:48* Test Item Value Reference Range Interpretation [...] code = 2801) 0.30 % 0.00-1.00 POCT-GLUCOSE [id number] 21:28:35* Test Item Value Reference Range Interpretation Comme nts POC-GLUCOSE METER (BEAKER) (test code = 1538) 127 mg/dL 70-110 H : TESTED AT [address], [address]: Audio Visual Aids Director/Artificial Flowers Dyer ID = [id number] for Ryan Morin POCT-GLUCOSE [id number] 18:49:21* Test Item Value Reference Range Interpretation Comme nts POC-GLUCOSE METER (BEAKER) (test code = 1538) 122 mg/dL 70-110 H : TESTED AT [address], [address]: Audio Visual Aids Director/Artificial Flowers Dyer ID = [id number] for Tyrell Lauren POCT-GLUCOSE [id number] 13:27:27* Test Item Value Reference Range Interpretation Comme nts POC-GLUCOSE METER (BEAKER) (test code = 1538) 130 mg/dL 70-110 H : TESTED AT [address], [address]: Audio Visual Aids Director/Artificial Flowers Dyer ID = [id number] for Lauren Santillan [id number] 09:09:14* Test Item Value Reference Range Interpretation Comme nts MAGNESIUM (BEAKER) (test cod e = 627) 2.2 mg/dL 1.6-2.6 [id number] 09:09:14* Test Item Value Reference Range Interpretation Comme nts PHOSPHORUS (BEAKER) (test co de = 604) 4.8 mg/dL 2.3-4.7 H BASIC METABOLIC [id number] 09:09:14* Test Item Value Reference Range Interpretation [...] is not applicable for dialysis patients POCT-GLUCOSE [id number] 08:33:30* Test Item Value Reference Range Interpretation Comme nts POC-GLUCOSE METER (BEAKER) (test code = 1538) 132 mg/dL 70-110 H : TESTED AT [facility] [address] [facility], [address]: Audio Visual Aids Director/Artificial Flowers Dyer ID = [id number] for Lauren Santillan CBC W/PLT COUNT & AUTO [id number] 05:47:59* Test Item Value Reference Range Interpretation [...] K/ L 0.01-0.08 IMMATURE GRANULOCYTES-RELATI VE PERCENT (LATOYA) (test code = 2801) 0.40 % 0.00-1.00 POCT-GLUCOSE [id number] 21:35:37* Test Item Value Reference Range Interpretation Comme nts POC-GLUCOSE METER (LATOYA) (test code = 1538) 129 mg/dL 70-110 H : TESTED AT [facility] [address] [facility], [address]: Audio Visual Aids Director/Artificial Flowers Dyer ID = [id number] for Ryan Morin MR BRAIN WITH & WITHOUT IV [id number] 15:49:58 [facility] : 1970 Sex: [...] Signed By: Zeinab Dempsey09/05/2023 15:53 CDTWorkstation Name: [id number] METER 2023-09-05 08:34:25* Test Item Value Reference Range Interpretation Comme nts POC-GLUCOSE METER (BEAKER) (test code = 1538) 115 mg/dL 70-110 H : TESTED AT [facility] [address] [facility], [address]: Audio Visual Aids Director/Artificial Flowers Dyer ID = [id number] for DOMINGA AMADOR BASIC METABOLIC [id number] 06:06:56* Test Item Value Reference Range Interpretation [...] GFR is not applicable for dialysis patients Audio Visual Aids Director ID - [id number] 06:06:56* Test Item Value Reference Range Interpretation Comme nts MAGNESIUM (BEAKER) (test cod e = 627) 2.2 mg/dL 1.6-2.6 Audio Visual Aids Director ID - [id number] 06:06:56* Test Item Value Reference Range Interpretation Comme nts PHOSPHORUS (BEAKER) (test co de = 604) 3.8 mg/dL 2.3-4.7 Audio Visual Aids Director ID - ADMINCBC W/PLT COUNT & AUTO [id number] 05:29:32* Test Item Value Reference Range Interpretation [...] code = 2801) 0.50 % 0.00-1.00 POCT-GLUCOSE [id number] 04:55:18* Test Item Value Reference Range Interpretation Comme nts POC-GLUCOSE METER (BEAKER) (test code = 1538) 99 mg/dL 70-110 : TESTED AT [facility] [address] [facility], [address]: Audio Visual Aids Director/Artificial Flowers Dyer ID = [id number] for Ryan Morin POCT-GLUCOSE [id number] 21:49:23* Test Item Value Reference Range Interpretation Comme nts POC-GLUCOSE METER (BEAKER) (test code = 1538) 124 mg/dL 70-110 H : TESTED AT [place] [id number] [facility], [address]: Audio Visual Aids Director/Artificial Flowers Dyer ID = [id number] for Ryan Morin POCT-GLUCOSE [id number] 15:55:53* Test Item Value Reference Range Interpretation Comme nts POC-GLUCOSE METER (BEAKER) (test code = 1538) 126 mg/dL 70-110 H : TESTED AT [facility] [address] [facility], [address]: Audio Visual Aids Director/Artificial Flowers Dyer ID = [id number] for Tramaine Daniels [id number] 12:37:56* Test Item Value Reference Range Interpretation Comme nts PROCALCITONIN (BEAKER) (test code = 3036) < ng/mL <0.05 SEPSIS RISK (ng/mL)Low: 0.05-0.50Intermediate: 0.51-2.00High: >=2.01SARS- CoV2/Influenza/RSV [id number] 12:18:09* Test Item Value Reference Range Interpretation Comments SARS-COV2/RT-PCR (test code = 13177-5) Negative Negative The SARS-CoV-2 target nucleic acids [...] provider. Influenza A RT-PCR (test code = 99704-5) Negative Negative The Flu A target nucleic acids are not detected in this specimen. Influenza B RT-PCR (test code = 26013-0) Negative Negative The Flu B target nucleic acids are not detected in this specimen. RSV by RT-PCR (test code = 91158-5) Negative Negative The RSV target nucleic acids [...] the Act. Fact Sheet for Healthcare Providers:https://w ww.[employer]/Docu ments/Xpert%20Xpres s%20SARS%20CoV-2/Fa ct%20Sheets/302-390 2%71FMLR-GCM-4%20HE ALTHCARE%20PROVIDER S%20FACT%20SHEET.pd f Fact Sheet for Healthcare Patients:https://maria elena [employer]/Docum ents/Xpert%20Xpress %20SARS%20Cov-2/Fac t%20Sheets/302-3801 %70AUAT-SME-4%20PAT IENT%20FACT%20SHEET .pdf Lab Interpretation (test code = 39565-5) [facility] [id number] 12:18:09* Test Item Value Reference Range Interpretation Comments SARS-COV2/RT-PCR (test code = 37746-1) Negative Negative The SARS-CoV-2 target nucleic acids [...] provider. Influenza A RT-PCR (test code = 91067-0) Negative Negative The Flu A target nucleic acids are not detected in this specimen. Influenza B RT-PCR (test code = 57768-2) Negative Negative The Flu B target nucleic acids are not detected in this specimen. RSV by RT-PCR (test code = 28252-7) Negative Negative The RSV target nucleic acids [...] the Act. Fact Sheet for Healthcare Providers:https://[employer]/Docu ments/Xpert%20Xpres s%20SARS%20CoV-2/Fa ct%20Sheets/302-390 2%91KGZU-OWF-6%20HE ALTHCARE%20PROVIDER S%20FACT%20SHEET.pd f Fact Sheet for Healthcare Patients:https://[employer]/Docum ents/Xpert%20Xpress %20SARS%20Cov-2/Fac t%20Sheets/302-3801 %65FNVQ-OFR-0%20PAT IENT%20FACT%20SHEET .pdf Lab Interpretation (test code = 96505-6) [facility] [id number] 12:18:09* Test Item Value Reference Range Interpretation Comments SARS-COV2/RT-PCR (test code = 89420-4) Negative Negative The SARS-CoV-2 target nucleic acids [...] provider. Influenza A RT-PCR (test code = 14182-8) Negative Negative The Flu A target nucleic acids are not detected in this specimen. Influenza B RT-PCR (test code = 17288-9) Negative Negative The Flu B target nucleic acids are not detected in this specimen. RSV by RT-PCR (test code = 77042-3) Negative Negative The RSV target nucleic acids [...] the Act. Fact Sheet for Healthcare Providers:https://[employer]/Docu ments/Xpert%20Xpres s%20SARS%20CoV-2/Fa ct%20Sheets/302-390 2%88SKZV-FLP-7%20HE ALTHCARE%20PROVIDER S%20FACT%20SHEET.pd f Fact Sheet for Healthcare Patients:https://maria elena [employer]/Docum ents/Xpert%20Xpress %20SARS%20Cov-2/Fac t%20Sheets/302-3801 %56IXSQ-FQI-2%20PAT IENT%20FACT%20SHEET .pdf Lab Interpretation (test code = 09733-1) [facility]V [id number] 12:18:09* Test Item Value Reference Range Interpretation Comments SARS-COV2/RT-PCR (test code = 93600-7) Negative Negative The SARS-CoV-2 target nucleic acids [...] provider. Influenza A RT-PCR (test code = 89092-8) Negative Negative The Flu A target nucleic acids are not detected in this specimen. Influenza B RT-PCR (test code = 12242-5) Negative Negative The Flu B target nucleic acids are not detected in this specimen. RSV by RT-PCR (test code = 31193-4) Negative Negative The RSV target nucleic acids [...] the Act. Fact Sheet for Healthcare Providers:https://[employer]/Docu ments/Xpert%20Xpres s%20SARS%20CoV-2/Fa ct%20Sheets/302-390 2%04WGTB-KUT-3%20HE ALTHCARE%20PROVIDER S%20FACT%20SHEET.pd f Fact Sheet for Healthcare Patients:https://maria elena [employer]/Docum ents/Xpert%20Xpress %20SARS%20Cov-2/Fac t%20Sheets/302-3801 %93YYCD-TMS-4%20PAT IENT%20FACT%20SHEET .pdf Lab Interpretation (test code = 88287-5) [facility]V [id number] 12:18:09* Test Item Value Reference Range Interpretation Comments SARS-COV2/RT-PCR (test code = 44205-9) Negative Negative The SARS-CoV-2 target nucleic acids [...] provider. Influenza A RT-PCR (test code = 32313-3) Negative Negative The Flu A target nucleic acids are not detected in this specimen. Influenza B RT-PCR (test code = 18350-7) Negative Negative The Flu B target nucleic acids are not detected in this specimen. RSV by RT-PCR (test code = 72696-6) Negative Negative The RSV target nucleic acids [...] SARS-CoV-2/Flu/RSV by their healthcare provider. Results from [employer] Xpert Xpress SARS-CoV-2/Flu/RSV test should be correlated [...] the Act. Fact Sheet for Healthcare Providers:https://[employer]/Docu ments/Xpert%20Xpres s%20SARS%20CoV-2/Fa ct%20Sheets/302-390 2%70JJIO-LFM-1%20HE ALTHCARE%20PROVIDER S%20FACT%20SHEET.pd f Fact Sheet for Healthcare Patients:https://maria elena [employer]/Docum ents/Xpert%20Xpress %20SARS%20Cov-2/Fac t%20Sheets/302-3801 %74QJNE-CLY-6%20PAT IENT%20FACT%20SHEET .pdf Lab Interpretation (test code = 13409-0) [facility]V [id number] 12:18:09* Test Item Value Reference Range Interpretation Comments SARS-COV2/RT-PCR (test code = 07170-8) Negative Negative The SARS-CoV-2 target nucleic acids [...] provider. Influenza A RT-PCR (test code = 87686-8) Negative Negative The Flu A target nucleic acids are not detected in this specimen. Influenza B RT-PCR (test code = 18769-5) Negative Negative The Flu B target nucleic acids are not detected in this specimen. RSV by RT-PCR (test code = 91372-8) Negative Negative The RSV target nucleic acids [...] the Act. Fact Sheet for Healthcare Providers:https://w ww.[employer]/Docu ments/Xpert%20Xpres s%20SARS%20CoV-2/Fa ct%20Sheets/302-390 2%11UFZS-SRI-2%20HE ALTHCARE%20PROVIDER S%20FACT%20SHEET.pd f Fact Sheet for Healthcare Patients:https://ww w.[employer]/Docum ents/Xpert%20Xpress %20SARS%20Cov-2/Fac t%20Sheets/302-3801 %22FLCF-JWZ-8%20PAT IENT%20FACT%20SHEET .pdf Lab Interpretation (test code = 13438-3) [facility]V [id number] 12:18:09* Test Item Value Reference Range Interpretation Comments SARS-COV2/RT-PCR (test code = 73222-0) Negative Negative The SARS-CoV-2 target nucleic acids [...] provider. Influenza A RT-PCR (test code = 04408-2) Negative Negative The Flu A target nucleic acids are not detected in this specimen. Influenza B RT-PCR (test code = 66403-0) Negative Negative The Flu B target nucleic acids are not detected in this specimen. RSV by RT-PCR (test code = 38714-3) Negative Negative The RSV target nucleic acids [...] the Act. Fact Sheet for Healthcare Providers:https://[employer]/Docu ments/Xpert%20Xpres s%20SARS%20CoV-2/Fa ct%20Sheets/302-390 2%89BMWI-TLV-2%20HE ALTHCARE%20PROVIDER S%20FACT%20SHEET.pd f Fact Sheet for Healthcare Patients:https://[employer]/Docum ents/Xpert%20Xpress %20SARS%20Cov-2/Fac t%20Sheets/302-3801 %14YOHP-YVP-9%20PAT IENT%20FACT%20SHEET .pdf Lab Interpretation (test code = 58145-3) [facility]V [id number] 12:18:09* Test Item Value Reference Range Interpretation Comments SARS-COV2/RT-PCR (test code = 60398-2) Negative Negative The SARS-CoV-2 target nucleic acids [...] provider. Influenza A RT-PCR (test code = 36586-1) Negative Negative The Flu A target nucleic acids are not detected in this specimen. Influenza B RT-PCR (test code = 00643-8) Negative Negative The Flu B target nucleic acids are not detected in this specimen. RSV by RT-PCR (test code = 22172-4) Negative Negative The RSV target nucleic acids [...] the Act. Fact Sheet for Healthcare Providers:https://[employer]/Docu ments/Xpert%20Xpres s%20SARS%20CoV-2/Fa ct%20Sheets/302-390 2%15TWWC-LOL-9%20HE ALTHCARE%20PROVIDER S%20FACT%20SHEET.pd f Fact Sheet for Healthcare Patients:https://[employer]/Docum ents/Xpert%20Xpress %20SARS%20Cov-2/Fac t%20Sheets/302-3801 %14KWFO-BXQ-5%20PAT IENT%20FACT%20SHEET .pdf Lab Interpretation (test code = 66096-0) [facility] [id number] 12:18:09* Test Item Value Reference Range Interpretation Comments SARS-COV2/RT-PCR (test code = 37808-0) Negative Negative The SARS-CoV-2 target nucleic acids [...] provider. Influenza A RT-PCR (test code = 89701-6) Negative Negative The Flu A target nucleic acids are not detected in this specimen. Influenza B RT-PCR (test code = 89590-8) Negative Negative The Flu B target nucleic acids are not detected in this specimen. RSV by RT-PCR (test code = 55084-4) Negative Negative The RSV target nucleic acids [...] the Act. Fact Sheet for Healthcare Providers:https://[employer]/Docu ments/Xpert%20Xpres s%20SARS%20CoV-2/Fa ct%20Sheets/302-390 2%48RZQU-NSK-4%20HE ALTHCARE%20PROVIDER S%20FACT%20SHEET.pd f Fact Sheet for Healthcare Patients:https://maria elena [employer]/Docum ents/Xpert%20Xpress %20SARS%20Cov-2/Fac t%20Sheets/302-3801 %68DDLI-SAM-5%20PAT IENT%20FACT%20SHEET .pdf Lab Interpretation (test code = 01746-9) [facility]V [id number] 12:18:09* Test Item Value Reference Range Interpretation Comments SARS-COV2/RT-PCR (test code = 33445-5) Negative Negative The SARS-CoV-2 target nucleic acids [...] provider. Influenza A RT-PCR (test code = 37344-0) Negative Negative The Flu A target nucleic acids are not detected in this specimen. Influenza B RT-PCR (test code = 20777-4) Negative Negative The Flu B target nucleic acids are not detected in this specimen. RSV by RT-PCR (test code = 41821-9) Negative Negative The RSV target nucleic acids [...] SARS-CoV-2/Flu/RSV by their healthcare provider. Results from [facility] Xpert Xpress SARS-CoV-2/Flu/RSV test should be correlated [...] the Act. Fact Sheet for Healthcare Providers:https://[employer]/Docu ments/Xpert%20Xpres s%20SARS%20CoV-2/Fa ct%20Sheets/302-390 2%52QVQG-UTE-5%20HE ALTHCARE%20PROVIDER S%20FACT%20SHEET.pd f Fact Sheet for Healthcare Patients:https://[employer]/Docum ents/Xpert%20Xpress %20SARS%20Cov-2/Fac t%20Sheets/302-3801 %00LQTL-WNE-2%20PAT IENT%20FACT%20SHEET .pdf Lab Interpretation (test code = 80418-6) [facility]FLUENZA/RSV [id number] 12:18:09* Test Item Value Reference Range Interpretation Comme nts SARS-COV2/RT-PCR (test code = 3201735) Negative Negative The SARS-CoV-2 t arget nucleic [...] provider. INFLUENZA A RT-PCR (test code = 3353634) Negative Negative The Flu A target nucleic acids are not detected in this specimen. INFLUENZA B RT-PCR (test code = 1264318) Negative Negative The Flu B target nucleic acids are not detected in this specimen. RSV RT-PCR (test code = 6671519) Negative Negative The RSV target n ucleic [...] 564(g) of the Act.Fact Sheet for Healthcare Providers:https://www.[employer]/Documents/Xpert%20Xpress%20SARS%20CoV-2/Fact%2 0Sheets/302-3902%41QMSE-FCP-0%20HEALTHCARE%20PROVIDERS%20FACT%20SHEET.pdfFact Sheet for Healthcare Patients:https://ww w.[employer]/Documents/Xpert%20Xpress%20SARS%20Cov-2/Fact%20Sheets/302-3801%20S ARS-COV-2%20PATIENT%20FACT%20SHEET.pdfPOCT-GLUCOSE [id number] 11:08:35* Test Item Value Reference Range Interpretation Comme nts POC-GLUCOSE METER (BEAKER) (test code = 1538) 111 mg/dL 70-110 H : TESTED AT [facility] C [address] [place] [address], [address]: Audio Visual Aids Director/Artificial Flowers Dyer ID = [id number] for Tramaine Daniels POCT-GLUCOSE [id number] 08:16:42* Test Item Value Reference Range Interpretation Comme nts POC-GLUCOSE METER (BEAKER) (test code = 1538) 108 mg/dL 70-110 : TESTED AT [facility] [address] [place] [address], [address]: Audio Visual Aids Director/Artificial Flowers Dyer ID = [id number] for Beata Vargas MR CERVICAL SPINE WITHOUT IV [id number] 07:58:49 [facility] : 1970 Sex: FMR LUMBAR SPINE WITHOUT IV CONTRAST, MR THORACIC SPINE WITHOUT IVCONTRAST, MR CERVICAL SPINE WITHOUT IV CONTRASTINDICATION: Myelopathy, acute or progressiveTECHNIQUE: Multiplanar, multisequence noncontrast MR images of thecervical, thoracic, and lumbar spine were obtained. COMPARISON: MRI lumbar,06/13/2023 and 06/12/2023 CT cervical spineFINDINGS:Cervical Spine:The craniocervical junction is normal. The vertebral bodies have normal height, alignment, and signalintensity.Posterior changes from anterior cervical discectomy fusion at C3-C7STIR hyperintensity seen within the cord at the C3-C4 level Paraspinalsoft tissues are unremarkable.C2-C3: Moderate spinal canal stenosis and facet arthropathyC3-C4: Moderate to severe spinal canal stenosis and mild to moderatebilateral neural foraminal stenosisC4-C5: No significant spinal canal or neural foraminal stenosisC5-C6: No significant spinal canal or neural foraminal stenosisC6-C7: Ligamentum flavum buckling with mild to moderate spinal canalstenosis C7-T1: No significant spinal canal or neural foraminal stenosisThoracic spine:The vertebra l bodies have normal height, alignment, and signalintensity.Mild to moderate spondylosis and facet arthropathy are present withinthe spine.Posterior ligament ossifications at the calcifications at J86-H56emhnljh moderate spinal canal stenosisPosterior disc osteophyte at the T11-T12 level causing mild spinal canalstenosisThe spinal cord is normal in caliber and signal intensity. There is no significant foraminal or spinal canal stenosis.2.1 x 2.3 cm left adrenal nodule, incompletely characterizedParaspinal soft tissues are unremarkable.Lumbar spine:Postoperative changes from posterior decompression at the L3 and I9zlhrzc. A 1.3 x 1.5 cm (AP by transverse) T2 hyperintensepseudomeningocele is seen at the postoperative site.The conus medullaris terminates at the L1 level.Paraspinal soft tissue stuctures are unremarkable.Evaluation of the individual levels demonstrates:L1/L2: No significant spinal canal stenosis or neural foraminalnarrowing.L2/L3: Symmetric disc bulge with mild bilateral neural foraminalstenosis and moderate to severe spinal canal stenosisL3/L4: Symmetric disc bulge and facet arthropathy with small right faceteffusion and moderate severe spinal canal stenosis and severe left andmoderate to severe right neural foraminal stenosisL4/L5: Symmetric disc bulge and facet arthropathy with moderate spinalcanal stenosis and severe bilateral neural foraminal stenosisL5/S1: Symmetric disc bulge and facet arthropathy with moderatebilateral neural foraminal stenosisIMPRESSION:1. Cervical spinal cord myelopathy at C3-C4, with moderate to severespinal canal stenosis at this level.2. Postoperative changes from posterior decompression at L3-L4 levelwith associated 1.3 x 1.5 cmpseudomeningocele at the postoperativesite, similar to prior exam.3. Moderate to severe degenerative spinal canal stenosis at the L2-L3and L3-L4 levels.4. Severe degenerative neural foraminal stenosis at the left L3-L4 andbilateral L4-L5 levels5. 2. Postoperative changes from C3 through C7 ACDF.6. 3. Moderate degenerative spinal canal stenosis at T10-T11.7. 2.1 x 2.3 cm left adrenal nodule, incompletely characterized,similar to prior examElectronically Signed By: Maxim Sultana09/04/2023 08:00 CDTWorkstation Name: [id number] THORACIC SPINE WITHOUT IV [id number] 07:58:49 [facility] YUE[facility]ER ESTELLE : 1970 Sex: FMR LUMBAR SPINE WITHOUT IV CONTRAST, MR THORACIC SPINE WITHOUT IVCONTRAST, MR CERVICAL SPINE WITHOUT IV CONTRASTINDICATION: Myelopathy, acute or progressiveTECHNIQUE: Multiplanar, multisequence noncontrast MR images of thecervical, thoracic, and lumbar spine were obtained. COMPARISON: MRI lumbar,06/13/2023 and 06/12/2023 CT cervical spineFINDINGS:Cervical Spine:The craniocervical junction is normal. The vertebral bodies have normal height, alignment, and signalintensity.Posterior changes from anterior cervical discectomy fusion at C3-C7STIR hyperintensity seen within the cord at the C3-C4 level Paraspinalsoft tissues are unremarkable.C2-C3: Moderate spinal canal stenosis and facet arthropathyC3-C4: Moderate to severe spinal canal stenosis and mild to moderatebilateral neural foraminal stenosisC4-C5: No significant spinal canal or neural foraminal stenosisC5-C6: No significant spinal canal or neural foraminal stenosisC6-C7: Ligamentum flavum buckling with mild to moderate spinal canalstenosis C7-T1: No significant spinal canal or neural foraminal stenosisThoracic spine:The vertebra l bodies have normal height, alignment, and signalintensity.Mild to moderate spondylosis and facet arthropathy are present withinthe spine.Posterior ligament ossifications at the calcifications at G50-T21msboube moderate spinal canal stenosisPosterior disc osteophyte at the T11-T12 level causing mild spinal canalstenosisThe spinal cord is normal in caliber and signal intensity. There is no significant foraminal or spinal canal stenosis.2.1 x 2.3 cm left adrenal nodule, incompletely characterizedParaspinal soft tissues are unremarkable.Lumbar spine:Postoperative changes from posterior decompression at the L3 and Y9chaonz. A 1.3 x 1.5 cm (AP by transverse) T2 hyperintensepseudomeningocele is seen at the postoperative site.The conus medullaris terminates at the L1 level.Paraspinal soft tissue stuctures are unremarkable.Evaluation of the individual levels demonstrates:L1/L2: No significant spinal canal stenosis or neural foraminalnarrowing.L2/L3: Symmetric disc bulge with mild bilateral neural foraminalstenosis and moderate to severe spinal canal stenosisL3/L4: Symmetric disc bulge and facet arthropathy with small right faceteffusion and moderate severe spinal canal stenosis and severe left andmoderate to severe right neural foraminal stenosisL4/L5: Symmetric disc bulge and facet arthropathy with moderate spinalcanal stenosis and severe bilateral neural foraminal stenosisL5/S1: Symmetric disc bulge and facet arthropathy with moderatebilateral neural foraminal stenosisIMPRESSION:1. Cervical spinal cord myelopathy at C3-C4, with moderate to severespinal canal stenosis at this level.2. Postoperative changes from posterior decompression at L3-L4 levelwith associated 1.3 x 1.5 cmpseudomeningocele at the postoperativesite, similar to prior exam.3. Moderate to severe degenerative spinal canal stenosis at the L2-L3and L3-L4 levels.4. Severe degenerative neural foraminal stenosis at the left L3-L4 andbilateral L4-L5 levels5. 2. Postoperative changes from C3 through C7 ACDF.6. 3. Moderate degenerative spinal canal stenosis at T10-T11.7. 2.1 x 2.3 cm left adrenal nodule, incompletely characterized,similar to prior examElectronically Signed By: Maxim Sultana09/04/2023 08:00 CDTWorkstation Name: [id number] LUMBAR SPINE WITHOUT IV [id number] 07:58:49 [facility] 1970 Sex: [...] spine.Posterior ligament ossifications at the calcifications at G24-J02irpnjpz moderate spinal canal stenosisPosterior disc osteophyte at the T11-T12 level causing mild spinal canalstenosisThe spinal cord is normal in caliber and signal intensity. There is no significant foraminal or spinal canal stenosis.2.1 x 2.3 cm left adrenal nodule, incompletely characterizedParaspinal soft tissues are unremarkable.Lumbar spine:Postoperative changes from posterior decompression at the L3 and I4qpwmgw. A 1.3 x 1.5 cm (AP by [...] characterized,similar to prior examElectronically Signed By: Maxim Narvaez 08:00 CDTWorkstation Name: [id number] 2023-09-04 07:46:14* Test Item Value Reference Range Interpretation Comme nts FERRITIN (BEAKER) (test code = 361) 31.77 ng/mL 5.00-275.00 Audio Visual Aids Director ID - hgIRON, TIBC, % SAT. (WITHOUT FERRITIN)2023-09-04 07:24:52* Test Item Value Reference Range Interpretation Comme nts IRON (BEAKER) (test code = 547) 22.0 ug/dL 40.0-160.0 L TOTAL IRON BINDING CAPACITY (BEAKER) (test code = 769) 369 ug/dL 250-450 IRON % SATURATION (2) (BEAKE R) (test code = 2590) 6 % 20-55 L Audio Visual Aids Director ID - hgCT LUMBAR SPINE WITHOUT IV [id number] 05:42:45 [facility] 1970 Sex: [...] spine:Bones/alignment: Age- indeterminate nondisplaced fracture of the C5tmsbzfgww elements, predominantly i nvolving the lamina and [...] MRI in March 2023.Electronically Signed By: Suzan Chandra 05:45 CDTWorkstation Name: [id number] THORACIC SPINE WITHOUT IV [id number] 05:42:45 [facility] : 1970 Sex: [...] spine:Bones/alignment: Age- indeterminate nondisplaced fracture of the H1gpvztujeu elements, predominantly i nvolving the lamina and [...] Signed By: Suzan Weaver09/04/2023 05:45 CDTWorkstation Name: [id number] 04:44:34* Test Item Value Reference Range Interpretation Comme nts FIBRINOGEN LEVEL (BEAKER) (t est code = 658) 410 mg/dl 225-434 Urinalysis without Tyndtyfptby1433-75-90 03:58:52* Test Item Value Reference Range Interpretation Comme nts Color, UA (test code = 5778-6) Light Yellow Clarity, UA (test code = 5767-9) Hazy Specific Ridgely, UA (test code = 5811-5) 1.017 1.001-1.035 pH, UA (test code = 5803-2) 6.0 5.0-8.0 Protein, UA (test code = 76759-6) 10 mg/dL Negative A Glucose, UA (test code = 365) Negative Negative Ketones, UA (test code = 2514-8) Trace Negative A Bilirubin, UA (test code = 80862-0) Negative Negative Blood, UA (test code = 43171-3) Trace Negative A Nitrite, UA (test code = 5802-4) Negative Negative Leukocytes, UA (test code = 5799-2) Negative Negative Urobilinogen, UA (test code = 89181-5) 0.2 0.2-1.0 Specimen Source (test code = 2795) LYNDSAY (test code = LYNDSAY) Audio Visual Aids Director ID - [auto]Audio Visual Aids Director ID - tech Lab Interpretation (test code = 78328-8) [facility] Cqeqivwzkbt7751-51-36 03:58:52* Test Item Value Reference Range Interpretation Comme nts Color, UA (test code = 5778-6) Light Yellow Clarity, UA (test code = 5767-9) Hazy Specific Ridgely, UA (test code = 5811-5) 1.017 1.001-1.035 pH, UA (test code = 5803-2) 6.0 5.0-8.0 Protein, UA (test code = 53252-6) 10 mg/dL Negative A Glucose, UA (test code = 365) Negative Negative Ketones, UA (test code = 2514-8) Trace Negative A Bilirubin, UA (test code = 84417-1) Negative Negative Blood, UA (test code = 55234-0) Trace Negative A Nitrite, UA (test code = 5802-4) Negative Negative Leukocytes, UA (test code = 5799-2) Negative Negative Urobilinogen, UA (test code = 70740-3) 0.2 0.2-1.0 Specimen Source (test code = 2795) LYNDSAY (test code = LYNDSAY) Audio Visual Aids Director ID - [auto]Audio Visual Aids Director ID - tech Lab Interpretation (test code = 55726-2) [facility] Ztoqipyksrk5286-73-79 03:58:52* Test Item Value Reference Range Interpretation Comme nts Color, UA (test code = 5778-6) Light Yellow Clarity, UA (test code = 5767-9) Hazy Specific Ridgely, UA (test code = 5811-5) 1.017 1.001-1.035 pH, UA (test code = 5803-2) 6.0 5.0-8.0 Protein, UA (test code = 41817-7) 10 mg/dL Negative A Glucose, UA (test code = 365) Negative Negative Ketones, UA (test code = 2514-8) Trace Negative A Bilirubin, UA (test code = 87742-7) Negative Negative Blood, UA (test code = 52283-4) Trace Negative A Nitrite, UA (test code = 5802-4) Negative Negative Leukocytes, UA (test code = 5799-2) Negative Negative Urobilinogen, UA (test code = 66340-4) 0.2 0.2-1.0 Specimen Source (test code = 2795) LYNDSAY (test code = LYNDSAY) Audio Visual Aids Director ID - [auto]Audio Visual Aids Director ID - tech Lab Interpretation (test code = 81642-3) [facility] Qvugmtkoiht5258-91-95 03:58:52* Test Item Value Reference Range Interpretation Comme nts Color, UA (test code = 5778-6) Light Yellow Clarity, UA (test code = 5767-9) Hazy Specific Ridgely, UA (test code = 5811-5) 1.017 1.001-1.035 pH, UA (test code = 5803-2) 6.0 5.0-8.0 Protein, UA (test code = 54919-1) 10 mg/dL Negative A Glucose, UA (test code = 365) Negative Negative Ketones, UA (test code = 2514-8) Trace Negative A Bilirubin, UA (test code = 31374-1) Negative Negative Blood, UA (test code = 88078-2) Trace Negative A Nitrite, UA (test code = 5802-4) Negative Negative Leukocytes, UA (test code = 5799-2) Negative Negative Urobilinogen, UA (test code = 97703-5) 0.2 0.2-1.0 Specimen Source (test code = 2795) LYNDSAY (test code = LYNDSAY) Audio Visual Aids Director ID - [auto]Audio Visual Aids Director ID - tech Lab Interpretation (test code = 52763-3) [facility] Qjfjujzvitf8549-28-54 03:58:52* Test Item Value Reference Range Interpretation Comme nts Color, UA (test code = 5778-6) Light Yellow Clarity, UA (test code = 5767-9) Hazy Specific Ridgely, UA (test code = 5811-5) 1.017 1.001-1.035 pH, UA (test code = 5803-2) 6.0 5.0-8.0 Protein, UA (test code = 45219-3) 10 mg/dL Negative A Glucose, UA (test code = 365) Negative Negative Ketones, UA (test code = 2514-8) Trace Negative A Bilirubin, UA (test code = 13762-2) Negative Negative Blood, UA (test code = 35481-3) Trace Negative A Nitrite, UA (test code = 5802-4) Negative Negative Leukocytes, UA (test code = 5799-2) Negative Negative Urobilinogen, UA (test code = 84990-8) 0.2 0.2-1.0 Specimen Source (test code = 2795) LYNDSAY (test code = LYNDSAY) Audio Visual Aids Director ID - [auto]Audio Visual Aids Director ID - tech Lab Interpretation (test code = 77604-5) [facility] Aphusxuzxou7829-08-34 03:58:52* Test Item Value Reference Range Interpretation Comme nts Color, UA (test code = 5778-6) Light Yellow Clarity, UA (test code = 5767-9) Hazy Specific Ridgely, UA (test code = 5811-5) 1.017 1.001-1.035 pH, UA (test code = 5803-2) 6.0 5.0-8.0 Protein, UA (test code = 36151-3) 10 mg/dL Negative A Glucose, UA (test code = 365) Negative Negative Ketones, UA (test code = 2514-8) Trace Negative A Bilirubin, UA (test code = 45503-8) Negative Negative Blood, UA (test code = 73940-0) Trace Negative A Nitrite, UA (test code = 5802-4) Negative Negative Leukocytes, UA (test code = 5799-2) Negative Negative Urobilinogen, UA (test code = 47758-4) 0.2 0.2-1.0 Specimen Source (test code = 2795) LYNDSAY (test code = LYNDSAY) Audio Visual Aids Director ID - [auto]Audio Visual Aids Director ID - tech Lab Interpretation (test code = 83199-7) [facility] Xgfkszvvtju2497-65-86 03:58:52* Test Item Value Reference Range Interpretation Comme nts Color, UA (test code = 5778-6) Light Yellow Clarity, UA (test code = 5767-9) Hazy Specific Ridgely, UA (test code = 5811-5) 1.017 1.001-1.035 pH, UA (test code = 5803-2) 6.0 5.0-8.0 Protein, UA (test code = 52322-6) 10 mg/dL Negative A Glucose, UA (test code = 365) Negative Negative Ketones, UA (test code = 2514-8) Trace Negative A Bilirubin, UA (test code = 08896-3) Negative Negative Blood, UA (test code = 63530-0) Trace Negative A Nitrite, UA (test code = 5802-4) Negative Negative Leukocytes, UA (test code = 5799-2) Negative Negative Urobilinogen, UA (test code = 29880-3) 0.2 0.2-1.0 Specimen Source (test code = 2795) LYNDSAY (test code = LYNDSAY) Audio Visual Aids Director ID - [auto]Audio Visual Aids Director ID - tech Lab Interpretation (test code = 32371-1) [facility] Fgratborgmo2401-14-91 03:58:52* Test Item Value Reference Range Interpretation Comme nts Color, UA (test code = 5778-6) Light Yellow Clarity, UA (test code = 5767-9) Hazy Specific Ridgely, UA (test code = 5811-5) 1.017 1.001-1.035 pH, UA (test code = 5803-2) 6.0 5.0-8.0 Protein, UA (test code = 37845-7) 10 mg/dL Negative A Glucose, UA (test code = 365) Negative Negative Ketones, UA (test code = 2514-8) Trace Negative A Bilirubin, UA (test code = 13627-6) Negative Negative Blood, UA (test code = 07342-3) Trace Negative A Nitrite, UA (test code = 5802-4) Negative Negative Leukocytes, UA (test code = 5799-2) Negative Negative Urobilinogen, UA (test code = 53412-0) 0.2 0.2-1.0 Specimen Source (test code = 2795) LYNDSAY (test code = LYNDSAY) Audio Visual Aids Director ID - [auto]Audio Visual Aids Director ID - tech Lab Interpretation (test code = 03956-0) [facility] Aolrosrvyjo2088-45-24 03:58:52* Test Item Value Reference Range Interpretation Comme nts Color, UA (test code = 5778-6) Light Yellow Clarity, UA (test code = 5767-9) Hazy Specific Ridgely, UA (test code = 5811-5) 1.017 1.001-1.035 pH, UA (test code = 5803-2) 6.0 5.0-8.0 Protein, UA (test code = 79860-5) 10 mg/dL Negative A Glucose, UA (test code = 365) Negative Negative Ketones, UA (test code = 2514-8) Trace Negative A Bilirubin, UA (test code = 11832-2) Negative Negative Blood, UA (test code = 79366-1) Trace Negative A Nitrite, UA (test code = 5802-4) Negative Negative Leukocytes, UA (test code = 5799-2) Negative Negative Urobilinogen, UA (test code = 67125-3) 0.2 0.2-1.0 Specimen Source (test code = 2795) LYNDSAY (test code = LYNDSAY) Audio Visual Aids Director ID - [auto]Audio Visual Aids Director ID - tech Lab Interpretation (test code = 95324-9) [facility] Njxcbrhmwoy6853-02-60 03:58:52* Test Item Value Reference Range Interpretation Comme nts Color, UA (test code = 5778-6) Light Yellow Clarity, UA (test code = 5767-9) Hazy Specific Ridgely, UA (test code = 5811-5) 1.017 1.001-1.035 pH, UA (test code = 5803-2) 6.0 5.0-8.0 Protein, UA (test code = 88685-4) 10 mg/dL Negative A Glucose, UA (test code = 365) Negative Negative Ketones, UA (test code = 2514-8) Trace Negative A Bilirubin, UA (test code = 33296-7) Negative Negative Blood, UA (test code = 48857-7) Trace Negative A Nitrite, UA (test code = 5802-4) Negative Negative Leukocytes, UA (test code = 5799-2) Negative Negative Urobilinogen, UA (test code = 14216-5) 0.2 0.2-1.0 Specimen Source (test code = 2795) LYNDSAY (test code = LYNDSAY) Audio Visual Aids Director ID - [auto]Audio Visual Aids Director ID - tech Lab Interpretation (test code = 00834-7) [facility] [id number] 03:58:52* Test Item Value Reference Range Interpretation [...] 0.2 0.2-1.0 SOURCE(BEAKER) (test code = 2795) Audio Visual Aids Director ID - [auto]Audio Visual Aids Director ID - techCBC W/PLT COUNT & AUTO [...] 2801) 0.70 % 0.00-1.00 Rapid drug screen, [id number] 02:20:15* Test Item Value Reference Range Interpretation Comme nts Barbiturate Screen (test code = 04466-0) Negative Negative Benzodiazepine Screen (test code = 13280-2) Negative Negative Cocaine (Metab.) Screen (test code = 3397-7) Positive Negative A Methadone Screen (test code = 53049-5) Negative Negative Opiate Screen (test code = 31057-4) Negative Negative Cannabinoid Screen (test code = 90693-6) Positive Negative A Amph/Methamph Screen (test code = 50682-9) Negative Negative Phencyclidine Screen (test code = 61855-1) Negative Negative pH, UA (test code = 5803-2) 6.0 5.0-8.0 LYNDSAY (test code = LYNDSAY) DRUG CUTOFF CONC.Cocaine 300 ng/mL Cannabinoid 50 ng/mLBenzodiazepine 200 ng/mLBarbiturate 200 ng/mLPhencyclidine 25 ng/mLOpiate 300 ng/mLMethadone 300 ng/mLAmphetamine/ 1000 ng/mL Methamphetamine This assay provides an unconfirmed qualitative test result for the clinical management of patients in emergency situations. Chain of custody not maintained. Some ujvg-exx-fbojzlk medications, as well as adulterants, may cause inaccurate results. Clinical correlation should be applied. A more comprehensive drug screen or confirmation of a detected drug may be performed upon request.Audio Visual Aids Director ID - ADMIN Lab Interpretation (test code = 66870-7) [facility]normal [facility], [id number] 02:20:15* Test Item Value Reference Range Interpretation Comme nts Barbiturate Screen (test code = 90878-9) Negative Negative Benzodiazepine Screen (test code = 57125-8) Negative Negative Cocaine (Metab.) Screen (test code = 3397-7) Positive Negative A Methadone Screen (test code = 57813-3) Negative Negative Opiate Screen (test code = 71655-2) Negative Negative Cannabinoid Screen (test code = 84727-0) Positive Negative A Amph/Methamph Screen (test code = 60441-0) Negative Negative Phencyclidine Screen (test code = 75945-4) Negative Negative pH, UA (test code = 5803-2) 6.0 5.0-8.0 LYNDSAY (test code = LYNDSAY) DRUG CUTOFF CONC.Cocaine 300 ng/mL Cannabinoid 50 ng/mLBenzodiazepine 200 ng/mLBarbiturate 200 ng/mLPhencyclidine 25 ng/mLOpiate 300 ng/mLMethadone 300 ng/mLAmphetamine/ 1000 ng/mL Methamphetamine This assay provides an unconfirmed qualitative test result for the clinical management of patients in emergency situations. Chain of custody not maintained. Some vufm-tdc-cjfmknh medications, as well as adulterants, may cause inaccurate results. Clinical correlation should be applied. A more comprehensive drug screen or confirmation of a detected drug may be performed upon request.Audio Visual Aids Director ID - ADMIN Lab Interpretation (test code = 31238-0) [facility], [id number] 02:20:15* Test Item Value Reference Range Interpretation Comme nts Barbiturate Screen (test code = 20646-8) Negative Negative Benzodiazepine Screen (test code = 66946-1) Negative Negative Cocaine (Metab.) Screen (test code = 3397-7) Positive Negative A Methadone Screen (test code = 03893-8) Negative Negative Opiate Screen (test code = 16085-1) Negative Negative Cannabinoid Screen (test code = 49125-6) Positive Negative A Amph/Methamph Screen (test code = 34576-8) Negative Negative Phencyclidine Screen (test code = 93678-3) Negative Negative pH, UA (test code = 5803-2) 6.0 5.0-8.0 LYNDSAY (test code = LYNDSAY) DRUG CUTOFF CONC.Cocaine 300 ng/mL Cannabinoid 50 ng/mLBenzodiazepine 200 ng/mLBarbiturate 200 ng/mLPhencyclidine 25 ng/mLOpiate 300 ng/mLMethadone 300 ng/mLAmphetamine/ 1000 ng/mL Methamphetamine This assay provides an unconfirmed qualitative test result for the clinical management of patients in emergency situations. Chain of custody not maintained. Some rhrs-xtk-ifcfsky medications, as well as adulterants, may cause inaccurate results. Clinical correlation should be applied. A more comprehensive drug screen or confirmation of a detected drug may be performed upon request.Audio Visual Aids Director ID - ADMIN Lab Interpretation (test code = 61782-5) [facility], [id number] 02:20:15* Test Item Value Reference Range Interpretation Comme nts Barbiturate Screen (test code = 99835-4) Negative Negative Benzodiazepine Screen (test code = 55038-1) Negative Negative Cocaine (Metab.) Screen (test code = 3397-7) Positive Negative A Methadone Screen (test code = 60866-6) Negative Negative Opiate Screen (test code = 82493-8) Negative Negative Cannabinoid Screen (test code = 40175-2) Positive Negative A Amph/Methamph Screen (test code = 43221-8) Negative Negative Phencyclidine Screen (test code = 87256-6) Negative Negative pH, UA (test code = 5803-2) 6.0 5.0-8.0 LYNDSAY (test code = LYNDSAY) DRUG CUTOFF CONC.Cocaine 300 ng/mL Cannabinoid 50 ng/mLBenzodiazepine 200 ng/mLBarbiturate 200 ng/mLPhencyclidine 25 ng/mLOpiate 300 ng/mLMethadone 300 ng/mLAmphetamine/ 1000 ng/mL Methamphetamine This assay provides an unconfirmed qualitative test result for the clinical management of patients in emergency situations. Chain of custody not maintained. Some oxdj-ehu-qggolbo medications, as well as adulterants, may cause inaccurate results. Clinical correlation should be applied. A more comprehensive drug screen or confirmation of a detected drug may be performed upon request.Audio Visual Aids Director ID - ADMIN Lab Interpretation (test code = 49080-3) [facility]normal [facility], [id number] 02:20:15* Test Item Value Reference Range Interpretation Comme nts Barbiturate Screen (test code = 50075-3) Negative Negative Benzodiazepine Screen (test code = 98182-5) Negative Negative Cocaine (Metab.) Screen (test code = 3397-7) Positive Negative A Methadone Screen (test code = 06846-2) Negative Negative Opiate Screen (test code = 28502-1) Negative Negative Cannabinoid Screen (test code = 22455-1) Positive Negative A Amph/Methamph Screen (test code = 18025-1) Negative Negative Phencyclidine Screen (test code = 90896-8) Negative Negative pH, UA (test code = 5803-2) 6.0 5.0-8.0 LYNDSAY (test code = LYNDSAY) DRUG CUTOFF CONC.Cocaine 300 ng/mL Cannabinoid 50 ng/mLBenzodiazepine 200 ng/mLBarbiturate 200 ng/mLPhencyclidine 25 ng/mLOpiate 300 ng/mLMethadone 300 ng/mLAmphetamine/ 1000 ng/mL Methamphetamine This assay provides an unconfirmed qualitative test result for the clinical management of patients in emergency situations. Chain of custody not maintained. Some akrj-qzu-bdwudqz medications, as well as adulterants, may cause inaccurate results. Clinical correlation should be applied. A more comprehensive drug screen or confirmation of a detected drug may be performed upon request.Audio Visual Aids Director ID - ADMIN Lab Interpretation (test code = 20520-7) [facility], [id number] 02:20:15* Test Item Value Reference Range Interpretation Comme nts Barbiturate Screen (test code = 33481-2) Negative Negative Benzodiazepine Screen (test code = 34390-3) Negative Negative Cocaine (Metab.) Screen (test code = 3397-7) Positive Negative A Methadone Screen (test code = 61741-4) Negative Negative Opiate Screen (test code = 54901-8) Negative Negative Cannabinoid Screen (test code = 89511-9) Positive Negative A Amph/Methamph Screen (test code = 48043-8) Negative Negative Phencyclidine Screen (test code = 62199-6) Negative Negative pH, UA (test code = 5803-2) 6.0 5.0-8.0 LYNDSAY (test code = LYNDSAY) DRUG CUTOFF CONC.Cocaine 300 ng/mL Cannabinoid 50 ng/mLBenzodiazepine 200 ng/mLBarbiturate 200 ng/mLPhencyclidine 25 ng/mLOpiate 300 ng/mLMethadone 300 ng/mLAmphetamine/ 1000 ng/mL Methamphetamine This assay provides an unconfirmed qualitative test result for the clinical management of patients in emergency situations. Chain of custody not maintained. Some aedh-hmk-pizeblu medications, as well as adulterants, may cause inaccurate results. Clinical correlation should be applied. A more comprehensive drug screen or confirmation of a detected drug may be performed upon request.Audio Visual Aids Director ID - ADMIN Lab Interpretation (test code = 85251-5) [facility], [id number] 02:20:15* Test Item Value Reference Range Interpretation Comme nts Barbiturate Screen (test code = 98658-7) Negative Negative Benzodiazepine Screen (test code = 87876-7) Negative Negative Cocaine (Metab.) Screen (test code = 3397-7) Positive Negative A Methadone Screen (test code = 80505-2) Negative Negative Opiate Screen (test code = 64921-0) Negative Negative Cannabinoid Screen (test code = 99073-8) Positive Negative A Amph/Methamph Screen (test code = 87556-1) Negative Negative Phencyclidine Screen (test code = 98789-8) Negative Negative pH, UA (test code = 5803-2) 6.0 5.0-8.0 LYNDSAY (test code = LYNDSAY) DRUG CUTOFF CONC.Cocaine 300 ng/mL Cannabinoid 50 ng/mLBenzodiazepine 200 ng/mLBarbiturate 200 ng/mLPhencyclidine 25 ng/mLOpiate 300 ng/mLMethadone 300 ng/mLAmphetamine/ 1000 ng/mL Methamphetamine This assay provides an unconfirmed qualitative test result for the clinical management of patients in emergency situations. Chain of custody not maintained. Some zmur-hjm-yfabxzj medications, as well as adulterants, may cause inaccurate results. Clinical correlation should be applied. A more comprehensive drug screen or confirmation of a detected drug may be performed upon request.Audio Visual Aids Director ID - ADMIN Lab Interpretation (test code = 06484-6) [facility], [id number] 02:20:15* Test Item Value Reference Range Interpretation Comme nts Barbiturate Screen (test code = 63756-5) Negative Negative Benzodiazepine Screen (test code = 78293-3) Negative Negative Cocaine (Metab.) Screen (test code = 3397-7) Positive Negative A Methadone Screen (test code = 41203-3) Negative Negative Opiate Screen (test code = 89731-4) Negative Negative Cannabinoid Screen (test code = 72680-5) Positive Negative A Amph/Methamph Screen (test code = 24828-8) Negative Negative Phencyclidine Screen (test code = 74484-7) Negative Negative pH, UA (test code = 5803-2) 6.0 5.0-8.0 LYNDSAY (test code = LYNDSAY) DRUG CUTOFF CONC.Cocaine 300 ng/mL Cannabinoid 50 ng/mLBenzodiazepine 200 ng/mLBarbiturate 200 ng/mLPhencyclidine 25 ng/mLOpiate 300 ng/mLMethadone 300 ng/mLAmphetamine/ 1000 ng/mL Methamphetamine This assay provides an unconfirmed qualitative test result for the clinical management of patients in emergency situations. Chain of custody not maintained. Some mrxf-sem-dpbsefa medications, as well as adulterants, may cause inaccurate results. Clinical correlation should be applied. A more comprehensive drug screen or confirmation of a detected drug may be performed upon request.Audio Visual Aids Director ID - ADMIN Lab Interpretation (test code = 65613-9) [facility], [id number] 02:20:15* Test Item Value Reference Range Interpretation Comme nts Barbiturate Screen (test code = 78760-8) Negative Negative Benzodiazepine Screen (test code = 45902-0) Negative Negative Cocaine (Metab.) Screen (test code = 3397-7) Positive Negative A Methadone Screen (test code = 65396-8) Negative Negative Opiate Screen (test code = 22643-8) Negative Negative Cannabinoid Screen (test code = 94986-6) Positive Negative A Amph/Methamph Screen (test code = 54009-5) Negative Negative Phencyclidine Screen (test code = 05061-6) Negative Negative pH, UA (test code = 5803-2) 6.0 5.0-8.0 LYNDSAY (test code = LYNDSAY) DRUG CUTOFF CONC.Cocaine 300 ng/mL Cannabinoid 50 ng/mLBenzodiazepine 200 ng/mLBarbiturate 200 ng/mLPhencyclidine 25 ng/mLOpiate 300 ng/mLMethadone 300 ng/mLAmphetamine/ 1000 ng/mL Methamphetamine This assay provides an unconfirmed qualitative test result for the clinical management of patients in emergency situations. Chain of custody not maintained. Some bkwa-fdv-duvvuqc medications, as well as adulterants, may cause inaccurate results. Clinical correlation should be applied. A more comprehensive drug screen or confirmation of a detected drug may be performed upon request.Audio Visual Aids Director ID - ADMIN Lab Interpretation (test code = 65176-9) [facility] [id number] 02:20:15* Test Item Value Reference Range Interpretation Comme nts Barbiturate Screen (test code = 57959-1) Negative Negative Benzodiazepine Screen (test code = 77590-7) Negative Negative Cocaine (Metab.) Screen (test code = 3397-7) Positive Negative A Methadone Screen (test code = 77722-1) Negative Negative Opiate Screen (test code = 72993-1) Negative Negative Cannabinoid Screen (test code = 88255-7) Positive Negative A Amph/Methamph Screen (test code = 91947-5) Negative Negative Phencyclidine Screen (test code = 05333-9) Negative Negative pH, UA (test code = 5803-2) 6.0 5.0-8.0 LYNDSAY (test code = LYNDSAY) DRUG CUTOFF CONC.Cocaine 300 ng/mL Cannabinoid 50 ng/mLBenzodiazepine 200 ng/mLBarbiturate 200 ng/mLPhencyclidine 25 ng/mLOpiate 300 ng/mLMethadone 300 ng/mLAmphetamine/ 1000 ng/mL Methamphetamine This assay provides an unconfirmed qualitative test result for the clinical management of patients in emergency situations. Chain of custody not maintained. Some cvju-gcr-hgtfykf medications, as well as adulterants, may cause inaccurate results. Clinical correlation should be applied. A more comprehensive drug screen or confirmation of a detected drug may be performed upon request.Audio Visual Aids Director ID - ADMIN Lab Interpretation (test code = 14082-7) [facility] [id number] 02:20:15* Test Item Value Reference Range Interpretation [...] situations. Chain of custody not maintained. Some ohex-zod-lkjpzlq medications, as well as adulterants, may cause inaccurate results. Clinical correlation should be applied. A more comprehensive drug screen or confirmation of a detected drug may be performed upon request.Audio Visual Aids Director ID - ADMINB-TYPE NATRIURETIC FACTOR (BNP)2023-09-04 02:11:53* Test Item Value Reference Range Interpretation Comme nts B-TYPE NATRIURETIC PEPTIDE (BEAKER) (test code = 700) 1761 pg/mL 0-100 H Audio Visual Aids Director ID - ADMINLACTIC ACID, CMYXOU9083-05-05 02:10:37* Test Item Value Reference Range Interpretation Comme nts LACTATE BLOOD VENOUS (2) (BEAKER) (test code = 2872) 1.04 mmol/L 0.50-2.00 Specimen slightl y hemolyzed Audio Visual Aids Director ID - [id number] 02:04:37* Test Item Value Reference Range Interpretation Comme nts PHOSPHORUS (BEAKER) (test code = 604) 4.2 mg/dL 2.3-4.7 Specimen sligh tly hemolyzed [employer] Visual Aids Director ID - ADMINCOMPREHENSIVE METABOLIC [id number] 02:04:37* Test Item Value Reference Range Interpretation [...] GFR is not applicable for dialysis patients Audio Visual Aids Director ID - NZNHCJAEKSHPZW1636-95-10 02:04:36* Test Item Value Reference Range Interpretation Comme nts MAGNESIUM (LATOYA) (test code = 627) 2.1 mg/dL 1.6-2.6 Specimen sligh tly hemolyzed Audio Visual Aids Director ID - FDVJSU-GOYRX0689-15-16 01:45:13* Test Item Value Reference Range Interpretation [...] code = 760) 28.5 seconds 22.5-36.0 PROTHROMBIN TIME/[id number] 01:42:15* Test Item Value Reference Range Interpretation Comme nts PROTIME (LATOYA) (test code = 759) 15.8 seconds 11.9-14.2 H INR (LATOYA) (test code = 370) 1.25 <=5.90 RECOMMENDED COUMADIN/WARFARIN INR THERAPY RANGESSTANDARD DOSE: 2.0 - 3.0 Includes: PROPHYLAXIS for venous thrombosis, systemic embolization; TREATMENT for venous thrombosis and/or pulmonary embolus.HIGH RISK: Target INR is 2.5-3.5 for patients with mechanical heart valves.Lactic Acid Whole [id number] 20:51:22* Test Item Value Reference Range Interpretation Comme nts LACTIC ACID (test code = 3384356879) 1.56 mmol/L 0.50-2.20 Lab Interpretation (test cod e = 19781-4) [facility] [id number] 07:00:09* Test Item Value Reference Range Interpretation Comme nts CULTURE (BEAKER) (test code = 1095) No growth in 5 days BLOOD [id number] 07:00:09* Test Item Value Reference Range Interpretation Comme nts CULTURE (BEAKER) (test code = 1095) No growth in 5 days T-SPOT(R).[id number] 18:35:00* Test Item Value Reference Range Interpretation Comme nts T-SPOT.TB (test code = 2048032) Negative SeeBelow Normal Value: Ne gativeA negative [...] CORRECTED FOR NEG CONTROL (test code = 3006967) 1 PANEL B SPOT COUNT CORRECTED FOR NEG CONTROL (test code = 0088948) 0 NEGATIVE CONTROL (test code = 7921181) Passed POSITIVE CONTROL (test code = 20150907) Passed LYNDSAY (test code = LYNDSAY) [id number] [facility][id number] 18:35:00* Test Item Value Reference Range Interpretation Comme nts T-SPOT.TB (test code = 2767429) Negative SeeBelow Normal Value: Ne gativeA negative [...] CORRECTED FOR NEG CONTROL (test code = 5568083) 1 PANEL B SPOT COUNT CORRECTED FOR NEG CONTROL (test code = 2332142) 0 NEGATIVE CONTROL (test code = 2532673) Passed POSITIVE CONTROL (test code = 0036475) Passed LYNDSAY (test code = LYNDSAY) [id number] [facility]).[id number] 18:35:00* Test Item Value Reference Range Interpretation Comme nts T-SPOT.TB (test code = 4338478) Negative SeeBelow Normal Value: Ne gativeA negative [...] CORRECTED FOR NEG CONTROL (test code = 0765871) 1 PANEL B SPOT COUNT CORRECTED FOR NEG CONTROL (test code = 7604096) 0 NEGATIVE CONTROL (test code = 6368012) Passed POSITIVE CONTROL (test code = 0320973) Passed LYNDSAY (test code = LYNDSAY) [id number] [facility]).[id number] 18:35:00* Test Item Value Reference Range Interpretation Comme nts T-SPOT.TB (test code = 8678496) Negative SeeBelow Normal Value: Ne gativeA negative [...] CORRECTED FOR NEG CONTROL (test code = 0681889) 1 PANEL B SPOT COUNT CORRECTED FOR NEG CONTROL (test code = 3210090) 0 NEGATIVE CONTROL (test code = 5166811) Passed POSITIVE CONTROL (test code = 5001756) Passed LYNDSAY (test code = LYNDSAY) [id number] [facility]).[id number] 18:35:00* Test Item Value Reference Range Interpretation Comme nts T-SPOT.TB (test code = 7901463) Negative SeeBelow Normal Value: Ne gativeA negative [...] CORRECTED FOR NEG CONTROL (test code = 0119494) 1 PANEL B SPOT COUNT CORRECTED FOR NEG CONTROL (test code = 8194343) 0 NEGATIVE CONTROL (test code = 5341568) Passed POSITIVE CONTROL (test code = 8529403) Passed LYNDSAY (test code = LYNDSAY) [id number] [facility]).[id number] 18:35:00* Test Item Value Reference Range Interpretation [...] CORRECTED FOR NEG CONTROL (test code = 6213013) 0 NEGATIVE CONTROL (test code = 7770195) Passed POSITIVE CONTROL (test code = 8061427) Passed LYNDSAY (test code = LYNDSAY) [id number] [facility][id number] 18:35:00* Test Item Value Reference Range Interpretation Comme nts T-SPOT.TB (test code = 6720671) Negative SeeBelow Normal Value: Ne gativeA negative [...] 20150905) 0 NEGATIVE CONTROL (test code = 7844426) Passed POSITIVE CONTROL (test code = 20150907) Passed LYNDSAY (test code = LYNDSAY) [id number] [facility]).[id number] 18:35:00* Test Item Value Reference Range Interpretation Comme nts T-SPOT.TB (test code = 5555293) Negative SeeBelow Normal Value: Ne gativeA negative [...] CORRECTED FOR NEG CONTROL (test code = 3087997) 0 NEGATIVE CONTROL (test code = 7249359) Passed POSITIVE CONTROL (test code = 1046203) Passed LYNDSAY (test code = LYNDSAY) [id number] [facility][id number] 18:35:00* Test Item Value Reference Range Interpretation Comme nts T-SPOT.TB (test code = 7499959) Negative SeeBelow Normal Value: Ne gativeA negative [...] CORRECTED FOR NEG CONTROL (test code = 4266809) 1 PANEL B SPOT COUNT CORRECTED FOR NEG CONTROL (test code = 0353969) 0 NEGATIVE CONTROL (test code = 7812086) Passed POSITIVE CONTROL (test code = 3893216) Passed LYNDSAY (test code = LYNDSAY) [id number] [facility][id number] 18:35:00* Test Item Value Reference Range Interpretation Comme nts T-SPOT.TB (test code = 8476701) Negative SeeBelow Normal Value: Ne gativeA negative [...] CORRECTED FOR NEG CONTROL (test code = 4419810) 1 PANEL B SPOT COUNT CORRECTED FOR NEG CONTROL (test code = 9555867) 0 NEGATIVE CONTROL (test code = 2916040) Passed POSITIVE CONTROL (test code = 1562159) Passed LYNDSAY (test code = LYNDSAY) [id number] [facility][id number] 18:35:00* Test Item Value Reference Range Interpretation [...] CORRECTED FOR NEG CONTROL (test code = 8808613) 0 NEGATIVE CONTROL (test code = 4708480) Passed POSITIVE CONTROL (test code = 0860484) Passed LYNDSAY (test code = LYNDSAY) [id number] [facility]).[id number] 18:35:00* Test Item Value Reference Range Interpretation [...] 20150905) 0 NEGATIVE CONTROL (test code = 3044360) Passed POSITIVE CONTROL (test code = 20150907) Passed LYNDSAY (test code = LYNDSAY) [id number] [facility][id number] 18:35:00* Test Item Value Reference Range Interpretation [...] 20150905) 0 NEGATIVE CONTROL (test code = 6825407) Passed POSITIVE CONTROL (test code = 4593887) Passed LYNDSAY (test code = LYNDSAY) [id number] [facility][id number] 18:35:00* Test Item Value Reference Range Interpretation Comme nts T-SPOT.TB (test code = 3127557) Negative SeeBelow Normal Value: Ne gativeA negative [...] CORRECTED FOR NEG CONTROL (test code = 7292064) 1 PANEL B SPOT COUNT CORRECTED FOR NEG CONTROL (test code = 3305436) 0 NEGATIVE CONTROL (test code = 8519896) Passed POSITIVE CONTROL (test code = 5690481) Passed LYNDSAY (test code = LYNDSAY) 65623059 [facility][id number] 18:35:00* Test Item Value Reference Range Interpretation Comme [facility] T-SPOT.TB (test code = 77859-4) Negative SeeBelow Normal Value: Ne gativeA negative [...] CORRECTED FOR NEG CONTROL (test code = 25670-5) 0 NEGATIVE CONTROL (test code = 78909-6) Passed POSITIVE CONTROL (test code = 93057-2) Passed LYNDSAY (test code = LYNDSAY) [id number] [facility][id number] 18:35:00* Test Item Value Reference Range Interpretation Comme nts T-SPOT.TB (test code = 83933-9) Negative SeeBelow Normal Value: Ne gativeA negative [...] CORRECTED FOR NEG CONTROL (test code = 36556-0) 0 NEGATIVE CONTROL (test code = 01454-0) Passed POSITIVE CONTROL (test code = 33322-2) Passed LYNDSAY (test code = LYNDSAY) [id number] [facility][id number] 18:35:00* Test Item Value Reference Range Interpretation Comme nts T-SPOT.TB (test code = 05666-4) Negative SeeBelow Normal Value: Ne gativeA negative [...] CORRECTED FOR NEG CONTROL (test code = 54787-1) 0 NEGATIVE CONTROL (test code = 58824-8) Passed POSITIVE CONTROL (test code = 84793-4) Passed LYNDSAY (test code = LYNDSAY) [id number] [facility][id number] 18:35:00* Test Item Value Reference Range Interpretation Comme nts T-SPOT.TB (test code = 02054-0) Negative SeeBelow Normal Value: Ne gativeA negative [...] CORRECTED FOR NEG CONTROL (test code = 49901-7) 0 NEGATIVE CONTROL (test code = 43696-1) Passed POSITIVE CONTROL (test code = 40518-5) Passed LYNDSAY (test code = LYNDSAY) [id number] [facility][id number] 18:35:00* Test Item Value Reference Range Interpretation Comme nts T-SPOT.TB (test code = 82067-4) Negative SeeBelow Normal Value: Ne gativeA negative [...] CORRECTED FOR NEG CONTROL (test code = 73797-3) 0 NEGATIVE CONTROL (test code = 91269-8) Passed POSITIVE CONTROL (test code = 42909-0) Passed LYNDSAY (test code = LYNDSAY) [id number] [facility][id number] 18:35:00* Test Item Value Reference Range Interpretation Comme nts T-SPOT.TB (test code = 06536-9) Negative SeeBelow Normal Value: Ne gativeA negative [...] CORRECTED FOR NEG CONTROL (test code = 43223-8) 0 NEGATIVE CONTROL (test code = 51417-2) Passed POSITIVE CONTROL (test code = 55903-0) Passed LYNDSAY (test code = LYNDSAY) [id number] [facility][id number] 18:35:00* Test Item Value Reference Range Interpretation Comme nts T-SPOT.TB (test code = 34099-1) Negative SeeBelow Normal Value: Ne gativeA negative [...] CORRECTED FOR NEG CONTROL (test code = 39346-4) 0 NEGATIVE CONTROL (test code = 57226-3) Passed POSITIVE CONTROL (test code = 71805-6) Passed LYNDSAY (test code = LYNDSAY) [id number] [facility][id number] 18:35:00* Test Item Value Reference Range Interpretation Comme nts T-SPOT.TB (test code = 29334-4) Negative SeeBelow Normal Value: Ne gativeA negative [...] CORRECTED FOR NEG CONTROL (test code = 22639-7) 0 NEGATIVE CONTROL (test code = 63645-6) Passed POSITIVE CONTROL (test code = 02300-8) Passed LYNDSAY (test code = LYNDSAY) [id number] [facility][id number] 18:35:00* Test Item Value Reference Range Interpretation Comme nts T-SPOT.TB (test code = 68635-2) Negative SeeBelow Normal Value: Ne gativeA negative [...] CORRECTED FOR NEG CONTROL (test code = 92016-1) 0 NEGATIVE CONTROL (test code = 75334-0) Passed POSITIVE CONTROL (test code = 43740-3) Passed LYNDSAY (test code = LYNDSAY) [id number] [facility][id number] 18:35:00* Test Item Value Reference Range Interpretation Comme nts T-SPOT.TB (test code = 65127-5) Negative SeeBelow Normal Value: Ne gativeA negative [...] CORRECTED FOR NEG CONTROL (test code = 46612-4) 0 NEGATIVE CONTROL (test code = 72130-0) Passed POSITIVE CONTROL (test code = 52219-3) Passed LYNDSAY (test code = LYNDSAY) [id number] [facility][id number] 18:35:00* Test Item Value Reference Range Interpretation Comme nts T-SPOT.TB (test code = 59034-8) Negative SeeBelow Normal Value: Ne gativeA negative [...] CORRECTED FOR NEG CONTROL (test code = 31375-7) 0 NEGATIVE CONTROL (test code = 47719-6) Passed POSITIVE CONTROL (test code = 14866-5) Passed LYNDSAY (test code = LYNDSAY) [id number] [facility][id number] 18:35:00* Test Item Value Reference Range Interpretation Comme nts T-SPOT.TB (test code = 77282-6) Negative SeeBelow Normal Value: Ne gativeA negative [...] CORRECTED FOR NEG CONTROL (test code = 64276-4) 0 NEGATIVE CONTROL (test code = 02464-5) Passed POSITIVE CONTROL (test code = 03724-3) Passed LYNDSAY (test code = LYNDSAY) [id number] [facility][id number] 18:35:00* Test Item Value Reference Range Interpretation Comme nts T-SPOT.TB (test code = 32842-8) Negative SeeBelow Normal Value: Ne gativeA negative [...] CORRECTED FOR NEG CONTROL (test code = 23860-5) 0 NEGATIVE CONTROL (test code = 69978-5) Passed POSITIVE CONTROL (test code = 37733-9) Passed LYNDSAY (test code = LYNDSAY) [id number] [facility][id number] 18:35:00* Test Item Value Reference Range Interpretation Comme nts T-SPOT.TB (test code = 99983-7) Negative SeeBelow Normal Value: Ne gativeA negative [...] CORRECTED FOR NEG CONTROL (test code = 74276-4) 0 NEGATIVE CONTROL (test code = 91824-0) Passed POSITIVE CONTROL (test code = 26227-0) Passed LYNDSAY (test code = LYNDSAY) [id number] [facility][id number] 18:35:00* Test Item Value Reference Range Interpretation Comme nts T-SPOT.TB (test code = 85009-9) Negative SeeBelow Normal Value: Ne gativeA negative [...] CORRECTED FOR NEG CONTROL (test code = 77422-6) 0 NEGATIVE CONTROL (test code = 98867-8) Passed POSITIVE CONTROL (test code = 20774-2) Passed LYNDSAY (test code = LYNDSAY) [id number] [facility][id number] 18:35:00* Test Item Value Reference Range Interpretation Comme [facility] T-SPOT.TB (test code = 88396-8) Negative SeeBelow Normal Value: Ne gativeA negative [...] CORRECTED FOR NEG CONTROL (test code = 06720-7) 0 NEGATIVE CONTROL (test code = 79882-9) Passed POSITIVE CONTROL (test code = 82378-2) Passed LYNDSAY (test code = LYNDSAY) [id number] [facility][id number] 18:35:00* Test Item Value Reference Range Interpretation Comme [facility] T-SPOT.TB (test code = 1831391) Negative SeeBelow Normal Value: Ne gativeA negative [...] CORRECTED FOR NEG CONTROL (test code = 9713896) 1 PANEL B SPOT COUNT CORRECTED FOR NEG CONTROL (test code = 2365279) 0 NEGATIVE CONTROL (test code = 1589109) Passed POSITIVE CONTROL (test code = 2327355) Passed LYNDSAY (test code = LYNDSAY) [id number] [facility][id number] 18:35:00* Test Item Value Reference Range Interpretation [...] 20150905) 0 NEGATIVE CONTROL (test code = 9470105) Passed POSITIVE CONTROL (test code = 7736600) Passed LYNDSAY (test code = LYNDSAY) [id number] [facility][id number] 18:35:00* Test Item Value Reference Range Interpretation Comme nts T-SPOT.TB (test code = 0322120) Negative SeeBelow Normal Value: Ne gativeA negative [...] CORRECTED FOR NEG CONTROL (test code = 1191004) 1 PANEL B SPOT COUNT CORRECTED FOR NEG CONTROL (test code = 1513163) 0 NEGATIVE CONTROL (test code = 6095146) Passed POSITIVE CONTROL (test code = 4043452) Passed LYNDSAY (test code = LYNDSAY) [id number] [facility] oooi6605-07-05 13:41:18 Transesophageal Echocardiography Report (CHETAN) Demographics Patient Name YUE LAWS Date of Study 06/16/2023 ESTELLE Gender Female Visit Number [id number] Race Room Number 1055 Number Date of 1970 Referring Physician Age 53 year(s) [employer] Interpreting Physician Brian MDProcedure Type of Study [...] valve.Tricuspid Valve Partially visualized. Pulmonic Valve Not visualized.[facility] ekdvwh2751-86-79 09:55:41* Test Item Value Reference Range Interpretation Comme nts Result (test code = 6463-4) No MRSA isolated [facility] gzteul7360-32-26 09:55:41* Test Item Value Reference Range Interpretation Comme nts Result (test code = 6463-4) No MRSA isolated [facility] kdjoqk5592-36-72 09:55:41* Test Item Value Reference Range Interpretation Comme nts Result (test code = 6463-4) No MRSA isolated [facility] gytctu5295-42-49 09:55:41* Test Item Value Reference Range Interpretation Comme nts Result (test code = 6463-4) No MRSA isolated [facility] ldaurd1857-34-80 09:55:41* Test Item Value Reference Range Interpretation Comme nts Result (test code = 6463-4) No MRSA isolated [facility] zzjjpn2211-06-78 09:55:41* Test Item Value Reference Range Interpretation Comme nts Result (test code = 6463-4) No MRSA isolated [facility] elrbuv8444-33-98 09:55:41* Test Item Value Reference Range Interpretation Comme nts Result (test code = 6463-4) No MRSA isolated [facility] wztvka8164-03-52 09:55:41* Test Item Value Reference Range Interpretation Comme nts Result (test code = 6463-4) No MRSA isolated [facility] xocqlt7082-76-38 09:55:41* Test Item Value Reference Range Interpretation Comme nts Result (test code = 6463-4) No MRSA isolated [facility] tzgqyz5650-68-43 09:55:41* Test Item Value Reference Range Interpretation Comme nts Result (test code = 6463-4) No MRSA isolated [facility] nnghsw7827-45-65 09:55:41* Test Item Value Reference Range Interpretation Comme nts Result (test code = 6463-4) No MRSA isolated [facility] kloutr2568-12-63 09:55:41* Test Item Value Reference Range Interpretation Comme nts Result (test code = 6463-4) No MRSA isolated [facility] dwxdmi4369-83-02 09:55:41* Test Item Value Reference Range Interpretation Comme nts Result (test code = 6463-4) No MRSA isolated [facility] zymrwt9985-49-42 09:55:41* Test Item Value Reference Range Interpretation Comme nts Result (test code = 6463-4) No MRSA isolated [facility] uyvhme4610-23-55 09:55:41* Test Item Value Reference Range Interpretation Comme nts Result (test code = 6463-4) No MRSA isolated [facility] rtmlkv3191-52-54 09:55:41* Test Item Value Reference Range Interpretation Comme nts Result (test code = 6463-4) No MRSA isolated [facility] pnjwra2871-69-73 09:55:41* Test Item Value Reference Range Interpretation Comme nts Result (test code = 6463-4) No MRSA isolated [facility] esxvgk1612-95-53 09:55:41* Test Item Value Reference Range Interpretation Comme nts Result (test code = 6463-4) No MRSA isolated [facility] rjodvm4990-84-01 09:55:41* Test Item Value Reference Range Interpretation Comme nts Result (test code = 6463-4) No MRSA isolated [facility] qpxusp9524-25-28 09:55:41* Test Item Value Reference Range Interpretation Comme nts Result (test code = 6463-4) No MRSA isolated [facility] cfospe9734-71-36 09:55:41* Test Item Value Reference Range Interpretation Comme nts Result (test code = 6463-4) No MRSA isolated [facility] fbodeu0602-63-69 09:55:41* Test Item Value Reference Range Interpretation Comme nts Result (test code = 6463-4) No MRSA isolated [facility] ucckxq6553-49-30 09:55:41* Test Item Value Reference Range Interpretation Comme nts Result (test code = 6463-4) No MRSA isolated [facility] ntofhd0844-59-02 09:55:41* Test Item Value Reference Range Interpretation Comme nts Result (test code = 6463-4) No MRSA isolated [facility] ybzuqh2143-57-77 09:55:41* Test Item Value Reference Range Interpretation Comme nts Result (test code = 6463-4) No MRSA isolated [facility] sqxjfo9428-74-14 09:55:41* Test Item Value Reference Range Interpretation Comme nts Result (test code = 6463-4) No MRSA isolated [facility] relvct0939-28-19 09:55:41* Test Item Value Reference Range Interpretation Comme nts Result (test code = 6463-4) No MRSA isolated [facility] tnkjnl7056-35-87 09:55:41* Test Item Value Reference Range Interpretation Comme nts Result (test code = 6463-4) No MRSA isolated [facility] ptzjxy1386-89-49 09:55:41* Test Item Value Reference Range Interpretation Comme nts Result (test code = 6463-4) No MRSA isolated [facility] svuoue5380-82-72 09:55:41* Test Item Value Reference Range Interpretation Comme nts Result (test code = 6463-4) [facility] cmlgis7013-66-19 09:55:41* Test Item Value Reference Range Interpretation Comme nts Result (test code = 6463-4) No [facility] qsgoay6558-32-73 09:55:41* Test Item Value Reference Range Interpretation Comme nts Result (test code = 6463-4) No [facility] ixyhwy4737-78-28 09:55:41* Test Item Value Reference Range Interpretation Comme nts Result (test code = 6463-4) No [facility] KIFTOZ6455-77-10 09:55:41* Test Item Value Reference Range Interpretation Comme nts CULTURE (BEAKER) (test code = 1095) No MRSA isolated CRYPTOCOCCAL HUPWUQK1135-15-63 15:50:36* Test Item Value Reference Range Interpretation Comme nts CRYPTOCOCCAL ANTIGEN, SERUM (BEAKER) (test code = 1828) Negative Negative, Interference SPUTUM CULTURE + GRAM [id number] 10:30:11* Test Item Value Reference Range Interpretation [...] GRAM STAIN RESULT (BEAKER) (test code = 410933) 10-15 epithelial cells GRAM STAIN RESULT (BEAKER) (test code = 595231) 2+ gram positive cocci in chains and pairs GRAM STAIN RESULT (BEAKER) (test code = 906418) 1+ gram negative rods GRAM STAIN RESULT (BEAKER) (test code = 176299) 1+ yeast 2+ Normal respiratory rebel presentVANCOMYCIN LEVEL, [id number] 06:41:26* Test Item Value Reference Range Interpretation Comme nts VANCOMYCIN TROUGH (LATOYA) ( test code = 522) 17.0 ug/mL 10.0-20.0 Audio Visual Aids Director ID - ADMINECHO W CONTRAST & [id number] 13:44:03Transthoracic Echocardiography Report (TTE) Demographics Patient Name YUE LAWS Date of Study 06/14/2023 ESTELLE Gender Female Visit Number [id number] Race Room Number 1055 Number Date of 1970 Referring Aydee Go MD Physician Age 53 year(s) [employer] James Albarran [facility] Interpreting Mauricio Bonilla, Physician MDProcedure Type of [...] TV structure is normal. A trace of tricuspidregurgitation. Unable to estimate peak systolic PA pressure; [...] LA Volume: 109.23 ml LA Vol. Index: 5 7 ml/m^2 Left Ventricle LVIDd: 6.07 cm LVEDV:141.86 [...] MV Evette. Peak: 1.57 m/s Aortic Valve PeakVelocity: 1.93 m/s Mean Velocity: 1.43 m/s Peak [...] Velocity: 0.85 m/s Peak Gradient: 2.89 mmHgCHI [facility] HospitalHEMOGLOBIN [id number] 09:26:42* Test Item Value Reference Range Interpretation [...] 5.7- 6.4% indicates increased risk for diabetes (prediabetes)."Audio Visual Aids Director ID - ADMOperator ID - ADMECG 12 [id number] 09:06:12Ventricular Rate 97 BPMAtrial Rate 97 BPMP-R Interval 146 msQRS Duration 96 msQ-T Interval 378 msQTC Calculation(Bazett) 480 msP Boyd 68 degreesR Boyd 107 degreesT Boyd 18 degrees Suspect arm leadreversal, interpretation assumes no reversalNormal sinus rhythmRightward axisNonspecific T wave abnormalityAbnormal ECGWhen compared with ECG of 30-MAR-2023 13:06,QRS axis Shifted rightConfirmed by Luis Lopez ([id number]) on 06/14/2023 9:06:07 [facility] [id number] 09:06:12Ventricular Rate 97 BPMAtrial Rate 97 BPMP-R Interval 146 msQRS Duration 96 msQ-T Interval 378 msQTC Calculation(Bazett) 480 msP Boyd 68 degreesR Boyd 107 degreesT Boyd 18 degrees Suspect arm leadreversal, interpretation assumes no reversalNormal sinus rhythmRightward axisNonspecific T wave abno rmalityAbnormal ECGWhen compared with ECG of 30-MAR-2023 13:06,QRS axis Shifted rightConfirmed by Luis Lopez ([id number]) on 06/14/2023 9:06:07 [facility] CenterBASIC METABOLIC [id number] 04:48:18* Test Item Value Reference Range Interpretation [...] GFR is not applicable for dialysis patients Audio Visual Aids Director ID - ADMINCBC (HEMOGRAM ONLY)2023-06-14 04:22:50* Test [...] 413) 0 /100 WBC 0-0 Strep pneumoniae [id number] 23:34:41* Test Item Value Reference Range Interpretation Comme nts Strep pneumoniae Antigen (test code = 21831-7) Presumptive negative for pneumococcal pneumonia - see [...] the test. Lab Interpretation (test code = 18381-6) [facility] [id number] 23:34:41* Test Item Value Reference Range Interpretation Comme nts Strep pneumoniae Antigen (test code = 74347-7) Presumptive negative for pneumococcal pneumonia - see [...] the test. Lab Interpretation (test code = 75819-9) [facility] [id number] 23:34:41* Test Item Value Reference Range Interpretation Comme nts Strep pneumoniae Antigen (test code = 52360-5) Presumptive negative for pneumococcal pneumonia - see [...] the test. Lab Interpretation (test code = 11841-4) [facility] [id number] 23:34:41* Test Item Value Reference Range Interpretation Comme nts Strep pneumoniae Antigen (test code = 61343-0) Presumptive negative for pneumococcal pneumonia - see [...] the test. Lab Interpretation (test code = 55833-9) [facility] [id number] 23:34:41* Test Item Value Reference Range Interpretation Comme nts Strep pneumoniae Antigen (test code = 42447-2) Presumptive negative for pneumococcal pneumonia - see [...] the test. Lab Interpretation (test code = 99707-0) [facility] [id number] 23:34:41* Test Item Value Reference Range Interpretation Comme nts Strep pneumoniae Antigen (test code = 13005-6) Presumptive negative for pneumococcal pneumonia - see [...] the test. Lab Interpretation (test code = 18784-4) [facility] [id number] 23:34:41* Test Item Value Reference Range Interpretation Comme nts Strep pneumoniae Antigen (test code = 02502-5) Presumptive negative for pneumococcal pneumonia - see [...] the test. Lab Interpretation (test code = 12947-3) [facility] [id number] 23:34:41* Test Item Value Reference Range Interpretation Comme nts Strep pneumoniae Antigen (test code = 40628-0) Presumptive negative for pneumococcal pneumonia - see [...] the test. Lab Interpretation (test code = 53537-6) [facility] [id number] 23:34:41* Test Item Value Reference Range Interpretation Comme nts Strep pneumoniae Antigen (test code = 25080-7) Presumptive negative for pneumococcal pneumonia - see [...] the test. Lab Interpretation (test code = 92500-4) [facility] [id number] 23:34:41* Test Item Value Reference Range Interpretation Comme nts Strep pneumoniae Antigen (test code = 97893-0) Presumptive negative for pneumococcal pneumonia - see [...] the test. Lab Interpretation (test code = 93562-2) [facility] [id number] 23:34:41* Test Item Value Reference Range Interpretation Comme nts Strep pneumoniae Antigen (test code = 92994-2) Presumptive negative for pneumococcal pneumonia - see [...] the test. Lab Interpretation (test code = 16451-9) [facility] [id number] 23:34:41* Test Item Value Reference Range Interpretation Comme nts Strep pneumoniae Antigen (test code = 34784-4) Presumptive negative for pneumococcal pneumonia - see [...] the test. Lab Interpretation (test code = 73430-0) [facility] [id number] 23:34:41* Test Item Value Reference Range Interpretation Comme nts Strep pneumoniae Antigen (test code = 45294-8) Presumptive negative for pneumococcal pneumonia - see [...] the test. Lab Interpretation (test code = 36230-7) [facility] [id number] 23:34:41* Test Item Value Reference Range Interpretation Comme nts Strep pneumoniae Antigen (test code = 47865-9) Presumptive negative for pneumococcal pneumonia - see [...] the test. Lab Interpretation (test code = 04899-7) [facility] [id number] 23:34:41* Test Item Value Reference Range Interpretation Comme nts Strep pneumoniae Antigen (test code = 99789-5) Presumptive negative for pneumococcal pneumonia - see [...] the test. Lab Interpretation (test code = 89583-7) [facility] [id number] 23:34:41* Test Item Value Reference Range Interpretation Comme nts Strep pneumoniae Antigen (test code = 18286-3) Presumptive negative for pneumococcal pneumonia - see [...] the test. Lab Interpretation (test code = 28739-4) [facility] [id number] 23:34:41* Test Item Value Reference Range Interpretation Comme nts Strep pneumoniae Antigen (test code = 48857-9) Presumptive negative for pneumococcal pneumonia - see [...] the test. Lab Interpretation (test code = 03757-5) [facility] [id number] 23:34:41* Test Item Value Reference Range Interpretation Comme nts Strep pneumoniae Antigen (test code = 73016-3) Presumptive negative for pneumococcal pneumonia - see [...] the test. Lab Interpretation (test code = 46433-0) [facility] [id number] 23:34:41* Test Item Value Reference Range Interpretation Comme nts Strep pneumoniae Antigen (test code = 72041-7) Presumptive negative for pneumococcal pneumonia - see [...] the test. Lab Interpretation (test code = 54031-2) [facility] [id number] 23:34:41* Test Item Value Reference Range Interpretation Comme nts Strep pneumoniae Antigen (test code = 79384-5) Presumptive negative for pneumococcal pneumonia - see [...] the test. Lab Interpretation (test code = 42601-9) [facility] [id number] 23:34:41* Test Item Value Reference Range Interpretation Comme nts Strep pneumoniae Antigen (test code = 30726-8) Presumptive negative for pneumococcal pneumonia - see [...] the test. Lab Interpretation (test code = 51740-5) [facility] [id number] 23:34:41* Test Item Value Reference Range Interpretation Comme nts Strep pneumoniae Antigen (test code = 01691-3) Presumptive negative for pneumococcal pneumonia - see [...] the test. Lab Interpretation (test code = 58769-3) [facility] [id number] 23:34:41* Test Item Value Reference Range Interpretation Comme nts Strep pneumoniae Antigen (test code = 10305-8) Presumptive negative for pneumococcal pneumonia - see comment Presumptive negative for pneumococcal pneumonia - see comment, Presumptive negative for pneumococcal meningitis - see comment LYNDSAY (test code = LYNDSYA) Presumptive negati ve for pneumococcal pneumonia, suggesting no current or recent pneumococcal infection. Infection due to S. pneumoniae cannot be ruled out since the antigen present in the sample may be below the detection limit of the test. Lab Interpretation (test code = 05186-0) [facility] [id number] 23:34:41* Test Item Value Reference Range Interpretation Comme nts Strep pneumoniae Antigen (test code = 18668-5) Presumptive negative for pneumococcal pneumonia - see [...] the test. Lab Interpretation (test code = 53801-9) [facility] [id number] 23:34:41* Test Item Value Reference Range Interpretation Comme nts Strep pneumoniae Antigen (test code = 95959-5) Presumptive negative for pneumococcal pneumonia - see [...] the test. Lab Interpretation (test code = 01749-8) [facility] [id number] 23:34:41* Test Item Value Reference Range Interpretation Comme nts Strep pneumoniae Antigen (test code = 41209-6) Presumptive negative for pneumococcal pneumonia - see [...] the test. Lab Interpretation (test code = 00957-3) [facility] [id number] 23:34:41* Test Item Value Reference Range Interpretation Comme nts Strep pneumoniae Antigen (test code = 24033-6) Presumptive negative for pneumococcal pneumonia - see [...] the test. Lab Interpretation (test code = 92055-5) [facility] [id number] 23:34:41* Test Item Value Reference Range Interpretation Comme nts Strep pneumoniae Antigen (test code = 80896-4) Presumptive negative for pneumococcal pneumonia - see [...] the test. Lab Interpretation (test code = 82438-1) [facility] [id number] 23:34:41* Test Item Value Reference Range Interpretation Comme nts Strep pneumoniae Antigen (test code = 72267-0) Presumptive negative for pneumococcal pneumonia - see [...] the test. Lab Interpretation (test code = 53924-0) [facility] [id number] 23:34:41* Test Item Value Reference Range Interpretation Comme nts Strep pneumoniae Antigen (test code = 49760-0) Presumptive negative for pneumococcal pneumonia - see [...] the test. Lab Interpretation (test code = 74764-4) [facility] [id number] 23:34:41* Test Item Value Reference Range Interpretation Comme nts Strep pneumoniae Antigen (test code = 86775-3) Presumptive negative for pneumococcal pneumonia - see [...] the test. Lab Interpretation (test code = 77293-2) [facility] [id number] 23:34:41* Test Item Value Reference Range Interpretation Comme nts Strep pneumoniae Antigen (test code = 87457-6) Presumptive negative for pneumococcal pneumonia - see [...] the test. Lab Interpretation (test code = 74019-5) [facility] [id number] 23:34:41* Test Item Value Reference Range Interpretation Comme nts Strep pneumoniae Antigen (test code = 70235-5) Presumptive negative for pneumococcal pneumonia - see [...] the test. Lab Interpretation (test code = 44258-8) [facility] CenterTREP PNEUMONIAE [id number] 23:34:41* Test Item Value Reference Range Interpretation [...] detection limit of the test. Legionella antigen, [id number] 23:29:07* Test Item Value Reference Range Interpretation Comme nts Legionella Urine Antigen (test code = 75475-2) Negative - see comment Negative Negative for L. pneumophila serogroup 1 antigen, suggesting no recent or current infection with this serogroup. Legionellosis cannot be ruled out since other serogroups and species may cause disease. Lab Interpretation (test code = 85019-6) [facility] CenterLegionella antigen, [id number] 23:29:07* Test Item Value Reference Range Interpretation Comme nts Legionella Urine Antigen (test code = 13182-0) Negative - see comment Negative Negative for L. pneumophila serogroup 1 antigen, suggesting no recent or current infection with this serogroup. Legionellosis cannot be ruled out since other serogroups and species may cause disease. Lab Interpretation (test code = 57354-0) [facility], [id number] 23:29:07* Test Item Value Reference Range Interpretation Comme nts Legionella Urine Antigen (test code = 48494-7) Negative - see comment Negative Negative for L. pneumophila serogroup 1 antigen, suggesting no recent or current infection with this serogroup. Legionellosis cannot be ruled out since other serogroups and species may cause disease. Lab Interpretation (test code = 44784-0) [facility], [id number] 23:29:07* Test Item Value Reference Range Interpretation Comme nts Legionella Urine Antigen (test code = 02486-3) Negative - see comment Negative Negative for L. pneumophila serogroup 1 antigen, suggesting no recent or current infection with this serogroup. Legionellosis cannot be ruled out since other serogroups and species may cause disease. Lab Interpretation (test code = 37772-9) [facility], [id number] 23:29:07* Test Item Value Reference Range Interpretation Comme nts Legionella Urine Antigen (test code = 85198-1) Negative - see comment Negative Negative for L. pneumophila serogroup 1 antigen, suggesting no recent or current infection with this serogroup. Legionellosis cannot be ruled out since other serogroups and species may cause disease. Lab Interpretation (test code = 25298-6) [facility], [id number] 23:29:07* Test Item Value Reference Range Interpretation Comme nts Legionella Urine Antigen (test code = 81567-7) Negative - see comment Negative Negative for L. pneumophila serogroup 1 antigen, suggesting no recent or current infection with this serogroup. Legionellosis cannot be ruled out since other serogroups and species may cause disease. Lab Interpretation (test code = 01309-7) [facility], [id number] 23:29:07* Test Item Value Reference Range Interpretation Comme nts Legionella Urine Antigen (test code = 84159-3) Negative - see comment Negative Negative for L. pneumophila serogroup 1 antigen, suggesting no recent or current infection with this serogroup. Legionellosis cannot be ruled out since other serogroups and species may cause disease. Lab Interpretation (test code = 71448-4) [facility], [id number] 23:29:07* Test Item Value Reference Range Interpretation Comme nts Legionella Urine Antigen (test code = 94391-9) Negative - see comment Negative Negative for L. pneumophila serogroup 1 antigen, suggesting no recent or current infection with this serogroup. Legionellosis cannot be ruled out since other serogroups and species may cause disease. Lab Interpretation (test code = 36894-2) [facility], [id number] 23:29:07* Test Item Value Reference Range Interpretation Comme nts Legionella Urine Antigen (test code = 08356-7) Negative - see comment Negative Negative for L. pneumophila serogroup 1 antigen, suggesting no recent or current infection with this serogroup. Legionellosis cannot be ruled out since other serogroups and species may cause disease. Lab Interpretation (test code = 60471-8) [facility], [id number] 23:29:07* Test Item Value Reference Range Interpretation Comme nts Legionella Urine Antigen (test code = 45048-5) Negative - see comment Negative Negative for L. pneumophila serogroup 1 antigen, suggesting no recent or current infection with this serogroup. Legionellosis cannot be ruled out since other serogroups and species may cause disease. Lab Interpretation (test code = 92431-6) [facility], [id number] 23:29:07* Test Item Value Reference Range Interpretation Comme nts Legionella Urine Antigen (test code = 38421-6) Negative - see comment Negative Negative for L. pneumophila serogroup 1 antigen, suggesting no recent or current infection with this serogroup. Legionellosis cannot be ruled out since other serogroups and species may cause disease. Lab Interpretation (test code = 68868-8) [facility], [id number] 23:29:07* Test Item Value Reference Range Interpretation Comme nts Legionella Urine Antigen (test code = 83042-8) Negative - see comment Negative Negative for L. pneumophila serogroup 1 antigen, suggesting no recent or current infection with this serogroup. Legionellosis cannot be ruled out since other serogroups and species may cause disease. Lab Interpretation (test code = 51751-5) [facility], [id number] 23:29:07* Test Item Value Reference Range Interpretation Comme nts Legionella Urine Antigen (test code = 24417-4) Negative - see comment Negative Negative for L. pneumophila serogroup 1 antigen, suggesting no recent or current infection with this serogroup. Legionellosis cannot be ruled out since other serogroups and species may cause disease. Lab Interpretation (test code = 34553-7) [facility], [id number] 23:29:07* Test Item Value Reference Range Interpretation Comme nts Legionella Urine Antigen (test code = 52552-9) Negative - see comment Negative Negative for L. pneumophila serogroup 1 antigen, suggesting no recent or current infection with this serogroup. Legionellosis cannot be ruled out since other serogroups and species may cause disease. Lab Interpretation (test code = 11508-8) [facility], [id number] 23:29:07* Test Item Value Reference Range Interpretation Comme nts Legionella Urine Antigen (test code = 88832-5) Negative - see comment Negative Negative for L. pneumophila serogroup 1 antigen, suggesting no recent or current infection with this serogroup. Legionellosis cannot be ruled out since other serogroups and species may cause disease. Lab Interpretation (test code = 69436-5) [facility], [id number] 23:29:07* Test Item Value Reference Range Interpretation Comme nts Legionella Urine Antigen (test code = 29180-7) Negative - see comment Negative Negative for L. pneumophila serogroup 1 antigen, suggesting no recent or current infection with this serogroup. Legionellosis cannot be ruled out since other serogroups and species may cause disease. Lab Interpretation (test code = 83026-8) [facility], [id number] 23:29:07* Test Item Value Reference Range Interpretation Comme nts Legionella Urine Antigen (test code = 08928-2) Negative - see comment Negative Negative for L. pneumophila serogroup 1 antigen, suggesting no recent or current infection with this serogroup. Legionellosis cannot be ruled out since other serogroups and species may cause disease. Lab Interpretation (test code = 82245-9) [facility], [id number] 23:29:07* Test Item Value Reference Range Interpretation Comme nts Legionella Urine Antigen (test code = 78793-2) Negative - see comment Negative Negative for L. pneumophila serogroup 1 antigen, suggesting no recent or current infection with this serogroup. Legionellosis cannot be ruled out since other serogroups and species may cause disease. Lab Interpretation (test code = 85756-1) [facility], [id number] 23:29:07* Test Item Value Reference Range Interpretation Comme nts Legionella Urine Antigen (test code = 41264-9) Negative - see comment Negative Negative for L. pneumophila serogroup 1 antigen, suggesting no recent or current infection with this serogroup. Legionellosis cannot be ruled out since other serogroups and species may cause disease. Lab Interpretation (test code = 89084-8) [facility], [id number] 23:29:07* Test Item Value Reference Range Interpretation Comme nts Legionella Urine Antigen (test code = 30793-6) Negative - see comment Negative Negative for L. pneumophila serogroup 1 antigen, suggesting no recent or current infection with this serogroup. Legionellosis cannot be ruled out since other serogroups and species may cause disease. Lab Interpretation (test code = 91745-3) [facility], [id number] 23:29:07* Test Item Value Reference Range Interpretation Comme nts Legionella Urine Antigen (test code = 12225-8) Negative - see comment Negative Negative for L. pneumophila serogroup 1 antigen, suggesting no recent or current infection with this serogroup. Legionellosis cannot be ruled out since other serogroups and species may cause disease. Lab Interpretation (test code = 20750-0) [facility], [id number] 23:29:07* Test Item Value Reference Range Interpretation Comme nts Legionella Urine Antigen (test code = 22824-3) Negative - see comment Negative Negative for L. pneumophila serogroup 1 antigen, suggesting no recent or current infection with this serogroup. Legionellosis cannot be ruled out since other serogroups and species may cause disease. Lab Interpretation (test code = 39851-3) [facility], [id number] 23:29:07* Test Item Value Reference Range Interpretation Comme nts Legionella Urine Antigen (test code = 68480-4) Negative - see comment Negative Negative for L. pneumophila serogroup 1 antigen, suggesting no recent or current infection with this serogroup. Legionellosis cannot be ruled out since other serogroups and species may cause disease. Lab Interpretation (test code = 27767-8) [facility], [id number] 23:29:07* Test Item Value Reference Range Interpretation Comme nts Legionella Urine Antigen (test code = 69360-1) Negative - see comment Negative Negative for L. pneumophila serogroup 1 antigen, suggesting no recent or current infection with this serogroup. Legionellosis cannot be ruled out since other serogroups and species may cause disease. Lab Interpretation (test code = 05594-5) [facility], [id number] 23:29:07* Test Item Value Reference Range Interpretation Comme nts Legionella Urine Antigen (test code = 04521-4) Negative - see comment Negative Negative for L. pneumophila serogroup 1 antigen, suggesting no recent or current infection with this serogroup. Legionellosis cannot be ruled out since other serogroups and species may cause disease. Lab Interpretation (test code = 91467-7) [facility]ion[facility] antigen, [id number] 23:29:07* Test Item Value Reference Range Interpretation Comme nts Legionella Urine Antigen (test code = 45179-4) Negative - see comment Negative Negative for L. pneumophila serogroup 1 antigen, suggesting no recent or current infection with this serogroup. Legionellosis cannot be ruled out since other serogroups and species may cause disease. Lab Interpretation (test code = 80366-5) [facility]ionella antigen, [id number] 23:29:07* Test Item Value Reference Range Interpretation Comme nts Legionella Urine Antigen (test code = 38830-3) Negative - see comment Negative Negative for L. pneumophila serogroup 1 antigen, suggesting no recent or current infection with this serogroup. Legionellosis cannot be ruled out since other serogroups and species may cause disease. Lab Interpretation (test code = 03533-7) [facility]ionella antigen, [id number] 23:29:07* Test Item Value Reference Range Interpretation Comme nts Legionella Urine Antigen (test code = 09158-7) Negative - see comment Negative Negative for L. pneumophila serogroup 1 antigen, suggesting no recent or current infection with this serogroup. Legionellosis cannot be ruled out since other serogroups and species may cause disease. Lab Interpretation (test code = 24650-8) [facility] antigen, [id number] 23:29:07* Test Item Value Reference Range Interpretation Comme nts Legionella Urine Antigen (test code = 11492-2) Negative - see comment Negative Negative for L. pneumophila serogroup 1 antigen, suggesting no recent or current infection with this serogroup. Legionellosis cannot be ruled out since other serogroups and species may cause disease. Lab Interpretation (test code = 66607-8) [facility], [id number] 23:29:07* Test Item Value Reference Range Interpretation Comme nts Legionella Urine Antigen (test code = 28008-8) Negative - see comment Negative Negative for L. pneumophila serogroup 1 antigen, suggesting no recent or current infection with this serogroup. Legionellosis cannot be ruled out since other serogroups and species may cause disease. Lab Interpretation (test code = 72976-3) [facility] antigen, [id number] 23:29:07* Test Item Value Reference Range Interpretation Comme nts Legionella Urine Antigen (test code = 07984-0) Negative - see comment Negative Negative for L. pneumophila serogroup 1 antigen, suggesting no recent or current infection with this serogroup. Legionellosis cannot be ruled out since other serogroups and species may cause disease. Lab Interpretation (test code = 53092-7) [facility] antigen, [id number] 23:29:07* Test Item Value Reference Range Interpretation Comme nts Legionella Urine Antigen (test code = 51162-8) Negative - see comment Negative Negative for L. pneumophila serogroup 1 antigen, suggesting no recent or current infection with this serogroup. Legionellosis cannot be ruled out since other serogroups and species may cause disease. Lab Interpretation (test code = 44118-2) [facility]ionella antigen, [id number] 23:29:07* Test Item Value Reference Range Interpretation Comme nts Legionella Urine Antigen (test code = 67440-1) Negative - see comment Negative Negative for L. pneumophila serogroup 1 antigen, suggesting no recent or current infection with this serogroup. Legionellosis cannot be ruled out since other serogroups and species may cause disease. Lab Interpretation (test code = 41932-8) Normal [facility] HospitalLEGIONELLA ANTIGEN, [id number] 23:29:07* Test Item Value Reference Range Interpretation Comme nts L. PNEUMOPHILA SEROGP 1 UR AG (BEAKER) (test code = 1156) Negative - see comment Negative Negative for L. pneumophila serogroup 1 antigen, suggesting no recent or current infection with this serogroup. Legionellosis cannot be ruled out since other serogroups and species may cause disease. Venous doppler arm, [id number] 20:05:32PV LAB - Upper Extremities Veins Demographics Patient Name YUE LAWS Date of Study 06/13/2023 ESTELLE Age 53 Visit Number [id number] Gender Female Accession Number [id number] Date ofBirth 1970 Referring Cara Burgess Room Number 1055 Physician Warehouse Team Leader Lisa Ruiz Interpreting John Solorio, Physician FellowProcedureType [...] in cm/s ; Diameters are measured in [facility]HIV[facility] ANTIGEN WITH HIV-1/2 [id number] 18:36:40* Test Item Value Reference Range Interpretation Comme nts HIV-1 ANTIGEN WITH HIV 1\\T\\2 ANTIBODY (2) (LATOYA) (test code = 2586) Nonreactive Nonreactive MR lumbar spine without & with IV ljcwaokf3642-84-36 14:53:29MR LUMBAR SPINE WITH & WITHOUT IV [...] x 1.7x 1.7 cm. Dorsal paraspinal musculature Q7pfvpvzcsggqesc. Postcontrast imaging demonstrates mild peripheralenhancement of the dorsal paraspinal fluid collection. Left adrenalgland 2.9 cm nodule.[facility]MR [facility] SP[facility] WITH & WITHOUT IV [id number] 14:53:29[facility] 1970 Sex: [...] 1.7 x 1.7 cm. Dorsal paraspinal musculature F7fdfbbrhpvjargl. Postcontrast imaging demonstrates mild peripheralenhancement of the [...] Signed By: Ryan Buckley06/13/2023 14:55 CDTWorkstation Name: [id number] KINASE (CK)2023-06-13 11:54:02* Test Item Value Reference Range Interpretation Comme nts CREATINE KINASE TOTAL (BEAKE R) (test code = 380) 43 U/L 29-200 Audio Visual Aids Director ID - ADMINCOMPREHENSIVE METABOLIC [id number] 06:48:22* Test Item Value Reference Range Interpretation [...] GFR is not applicable for dialysis patients Audio Visual Aids Director ID - ADMINPROTHROMBIN TIME/BYO7783-70-09 06:40:01* Test Item Value Reference Range Interpretation [...] code = 2801) 1.70 % 0.00-1.00 H [id number] 05:26:09* Test Item Value Reference Range Interpretation Comme nts MAGNESIUM (BEAKER) (test cod e = 627) 2.0 mg/dL 1.6-2.6 Audio Visual Aids Director ID - [id number] 05:26:09* Test Item Value Reference Range Interpretation Comme nts PHOSPHORUS (BEAKER) (test co de = 604) 3.5 mg/dL 2.3-4.7 Audio Visual Aids Director ID - ADMINBASIC METABOLIC [id number] 05:26:08* Test Item Value Reference Range Interpretation [...] GFR is not applicable for dialysis patients Audio Visual Aids Director ID - ADMINCBC W/PLT COUNT & AUTO [id number] 05:11:15* Test Item Value Reference Range Interpretation [...] 0.70 % 0.00-1.00 XR spine lumbar 1 [id number] 10:32:20XR SPINE LUMBAR 1 VIEW CLINICAL INDICATION: L3-4 LAMINECTOMY [facility] [id number] 10:32:20 [facility] : 1970 Sex: FXR SPINE LUMBAR 1 VIEWCLINICAL INDICATION: L3-4 LAMINECTOMYCOMPARISON: NoneIMPRESSION:A single lateral view of the lumbar spine is obtained intraoperatively.The posterior approach surgical instrument is seen at the L3-L4 level,inferior to the L3 spinous process. Results were communicated to , who concurred with the above findings. Electronically Signed By: Maxim Ramos08/01/2022 10:34 CDTWo rkstation Name: [id number] SPINE LUMBAR 1 [id number] 10:29:18 [facility] : 1970 Sex: [...] Signed By: Maxim Ramos08/01/2022 10:31 CDTWorkstation Name: [id number] Screen, [id number] 05:32:52* Test Item Value Reference Range Interpretation Comme nts Preg Test, Ur (test code = 2111-07) Negative Negative Lab Interpretation (test cod e = 97407-4) Normal [facility] HospitalPregnancy Screen, [id number] 05:32:52* Test Item Value Reference Range Interpretation Comme nts Preg Test, Ur (test code = 2111-) Negative Negative Lab Interpretation (test cod e = 23374-3) Normal [facility]Pregnancy Screen, [id number] 05:32:52* Test Item Value Reference Range Interpretation Comme nts Preg Test, Ur (test code = 2111-) Negative Negative Lab Interpretation (test cod e = 84374-1) Normal [facility]Pregnancy Screen, [id number] 05:32:52* Test Item Value Reference Range Interpretation Comme nts Preg Test, Ur (test code = 2111-) Negative Negative Lab Interpretation (test cod e = 85633-0) Normal [facility]Pregnancy Screen, [id number] 05:32:52* Test Item Value Reference Range Interpretation Comme nts Preg Test, Ur (test code = 2111-07) Negative Negative Lab Interpretation (test cod e = 51174-7) Normal [facility]Pregnancy Screen, [id number] 05:32:52* Test Item Value Reference Range Interpretation Comme nts Preg Test, Ur (test code = 2111-) Negative Negative Lab Interpretation (test cod e = 75146-2) Normal [facility]Pregnancy [facility], [id number] 05:32:52* Test Item Value Reference Range Interpretation Comme nts Preg Test, Ur (test code = 2111-) Negative Negative Lab Interpretation (test cod e = 60448-6) Normal [facility]Pregnancy [facility], [id number] 05:32:52* Test Item Value Reference Range Interpretation Comme nts Preg Test, Ur (test code = 2111-) Negative Negative Lab Interpretation (test cod e = 51404-1) Normal [facility], [id number] 05:32:52* Test Item Value Reference Range Interpretation Comme nts Preg Test, Ur (test code = 2111-) Negative Negative Lab Interpretation (test cod e = 33589-5) Normal [facility], [id number] 05:32:52* Test Item Value Reference Range Interpretation Comme nts Preg Test, Ur (test code = 2111-) Negative Negative Lab Interpretation (test cod e = 78011-0) Normal [facility], [id number] 05:32:52* Test Item Value Reference Range Interpretation Comme nts Preg Test, Ur (test code = 2-1) Negative Negative Lab Interpretation (test cod e = 49012-4) Normal [facility], [id number] 05:32:52* Test Item Value Reference Range Interpretation Comme nts Preg Test, Ur (test code = 2-1) Negative Negative Lab Interpretation (test cod e = 60694-2) Normal [facility], [id number] 05:32:52* Test Item Value Reference Range Interpretation Comme nts Preg Test, Ur (test code = 2111-) Negative Negative Lab Interpretation (test cod e = 50372-1) Normal [facility]Pregnancy Screen, [id number] 05:32:52* Test Item Value Reference Range Interpretation Comme nts Preg Test, Ur (test code = 2-) Negative Negative Lab Interpretation (test cod e = 24556-0) Normal [facility] Screen, [id number] 05:32:52* Test Item Value Reference Range Interpretation Comme nts Preg Test, Ur (test code = 2111-1) Negative Negative Lab Interpretation (test cod e = 98055-7) Normal [facility]Pregnancy [facility], [id number] 05:32:52* Test Item Value Reference Range Interpretation Comme nts Preg Test, Ur (test code = 2111-1) Negative Negative Lab Interpretation (test cod e = 54885-6) Normal [facility], [id number] 05:32:52* Test Item Value Reference Range Interpretation Comme nts Preg Test, Ur (test code = 2111-1) Negative Negative Lab Interpretation (test cod e = 25147-3) Normal [facility], [id number] 05:32:52* Test Item Value Reference Range Interpretation Comme nts Preg Test, Ur (test code = 2-1) Negative Negative Lab Interpretation (test cod e = 69587-2) Normal [facility], [id number] 05:32:52* Test Item Value Reference Range Interpretation Comme nts Preg Test, Ur (test code = 2111-1) Negative Negative Lab Interpretation (test cod e = 01740-6) Normal [facility]Pregnancy [facility], [id number] 05:32:52* Test Item Value Reference Range Interpretation Comme nts Preg Test, Ur (test code = 2111-) Negative Negative Lab Interpretation (test cod e = 60070-1) Normal [facility]Pregnancy [facility], [id number] 05:32:52* Test Item Value Reference Range Interpretation Comme nts Preg Test, Ur (test code = 2111-) Negative Negative Lab Interpretation (test cod e = 08857-9) [facility], [id number] 05:32:52* Test Item Value Reference Range Interpretation Comme nts Preg Test, Ur (test code = 2111-) Negative Negative Lab Interpretation (test cod e = 73461-5) Normal [facility], [id number] 05:32:52* Test Item Value Reference Range Interpretation Comme nts Preg Test, Ur (test code = 2111-) Negative Negative Lab Interpretation (test cod e = 60552-2) Normal [facility], [id number] 05:32:52* Test Item Value Reference Range Interpretation Comme nts Preg Test, Ur (test code = 2111-) Negative Negative Lab Interpretation (test cod e = 09009-8) Normal [facility], [id number] 05:32:52* Test Item Value Reference Range Interpretation Comme nts Preg Test, Ur (test code = 2111-) Negative Negative Lab Interpretation (test cod e = 62236-8) Normal [facility], [id number] 05:32:52* Test Item Value Reference Range Interpretation Comme nts Preg Test, Ur (test code = 2111-) Negative Negative Lab Interpretation (test cod e = 92100-0) Normal [facility] Screen, [id number] 05:32:52* Test Item Value Reference Range Interpretation Comme nts Preg Test, Ur (test code = 2-1) Negative Negative Lab Interpretation (test cod e = 14526-8) Normal [facility], [id number] 05:32:52* Test Item Value Reference Range Interpretation Comme nts Preg Test, Ur (test code = 2111-1) Negative Negative Lab Interpretation (test cod e = 66738-4) Normal [facility], [id number] 05:32:52* Test Item Value Reference Range Interpretation Comme nts Preg Test, Ur (test code = 2111-1) Negative Negative Lab Interpretation (test cod e = 11345-1) [facility], [id number] 05:32:52* Test Item Value Reference Range Interpretation Comme nts Preg Test, Ur (test code = 2111-) Negative Negative Lab Interpretation (test cod e = 73320-9) Normal [facility]Pregnancy Screen, [id number] 05:32:52* Test Item Value Reference Range Interpretation Comme nts Preg Test, Ur (test code = 2111-) Negative Negative Lab Interpretation (test cod e = 88444-9) Normal [facility]Pregnancy [facility], [id number] 05:32:52* Test Item Value Reference Range Interpretation Comme nts Preg Test, Ur (test code = 2111-) Negative Negative Lab Interpretation (test cod e = 93117-3) Normal [facility], [id number] 05:32:52* Test Item Value Reference Range Interpretation Comme nts Preg Test, Ur (test code = 2111-1) Negative Negative Lab Interpretation (test cod e = 89744-5) Normal [facility]Pregnancy Screen, [id number] 05:32:52* Test Item Value Reference Range Interpretation Comme nts Preg Test, Ur (test code = 2111-1) Negative Negative Lab Interpretation (test cod e = 71544-2) Normal [facility]Pregnancy Screen, [id number] 05:32:52* Test Item Value Reference Range Interpretation Comme nts Preg Test, Ur (test code = 2112-1) Negative Negative Lab Interpretation (test cod e = 90636-5) Normal [facility]Pregnancy Screen, [id number] 05:32:52* Test Item Value Reference Range Interpretation Comme nts Preg Test, Ur (test code = 2-1) Negative Negative Lab Interpretation (test cod e = 80573-6) Normal [facility] HospitalPREGNANCY SCREEN, [id number] 05:32:52* Test Item Value Reference Range Interpretation Comme nts TEST URINE (BEAKER ) (test code = 583) Negative Negative BASIC METABOLIC [id number] 23:30:54* Test Item Value Reference Range Interpretation [...] GFR is not applicable for dialysis patients Audio Visual Aids Director ID - ADMINPT/EEAM3220-37-92 23:15:33* Test Item Value Reference Range Interpretation [...] H CT neck soft tissue without IV pgoihcbf2010-28-29 13:45:22EXAM: CT NECK SOFT TISSUE WITHOUT IV [...] Postoperative changes from anterior cervical discectomy fusionat C3-O5Bjtryjus Lung Apices: NormalCH[facility] HospitalCT NECK SOFT TISSUE WITHOUT IV [id number] 13:45:22 [facility] 1970 Sex: [...] Postoperative changes from anterior cervical discectomy fusionat C3-M5Fblxkmxc Lung Apices: NormalIMPRESSION:Exam limited by lack of intravenous contrast.1. 1.8 x 2.9 x 1.3 cm ill-defined fluid collection in the leftanterolateral neck soft tissues, suggesting evolving postoperativehemorrhage. Superimposed infection is not ex cluded.2. Retropharyngeal fluid and air measuring up to 0.8 cm in thickness,favored to be present postoperative right frontal edema. Superimposedinfection is not excluded.3. Postoperative changes from ACDF at C3- E9Rncrbzyovdesmz Signed By: Maxim Ramos07/31/2022 13:47 CDTWorkstation Name: [id number] METABOLIC [id number] 08:13:13* Test Item Value Reference Range Interpretation [...] GFR is not applicable for dialysis patients Audio Visual Aids Director ID - BVCBC W/PLT COUNT & AUTO [id number] 07:46:31* Test Item Value Reference Range Interpretation [...] 0.00-1.00 XR spine cervical 2 or 3 [id number] 20:24:23TECHNIQUE: Frontal and lateral views of the cervical spine. INDICATION: Postop Standing Films. COMPARISON: None.[facility]XR SPINE CERVICAL 2 OR 3 [id number] 20:24:23[facility] : 1970 Sex: [...] apex.Electronically Signed By: Zachariah Garcia05/28/2023 20:26 CDTWorkstationName: [id number] fluoro non-specific up to 1 [id number] 11:45:16This is a non-reportable study with no Radiologist dictation. Please refer to your PACS to review images, or Doc Flowsheets for documentation on studies without images.[facility] HospitalFL FLUORO NON-SPECIFIC UP TO 1 [id number] 11:45:16 [facility] : 1970 Sex: FThis is a non- reportable study with no Radiologist dictation. Please refer to your PACS to review images, or Doc Flowsheets for documentation on studies without images.FL FLUORO NON-SPECIFIC UP TO 1 [id number] 10:13:02 [facility] : 1970 Sex: FTECHNIQUE: 1 lateral fluoroscopic image of the cervical spine forlocalization.Fluoroscopic time: 3second(s).FINDINGS:The surgical pointer is at C3-C4.The findings were discussed with Dr. Garcia in theOR who concurred withthe findings.IMPRESSION:Intraoperative localization plain film as described abo ve.Electronically Signed By: Derik Reyez05/28/2023 10:15 CDTWorkstation Name: [id number], QUANTITATIVE, [id number] 08:21:03* Test Item Value Reference Range Interpretation Comme nts GONADOTROPIN, CHORIONIC (HCG ) QUANT (BEAKER) (test code = 649) < mIU/mL 0-10 Non- Females: <10 mIU/mL Females: Gestation Age Reference Range(mIU/mL) 0.2-1 Week 5-50 1-2 Weeks 50-500 2-3 Weeks 100-5,000 3-4 Weeks 500-10,000 4-5 Weeks 1,000-50,000 5-6 Weeks 10,000-100,000 6-8 Weeks 15,000- 200,000 2-3 Months 10,000-100,000 Audio Visual Aids Director ID - ADMINCULTURE, [id number] 09:28:30SPECIMEN NUMBER: [id number] CULTURE, URINE SPECIMEN NUMBER: [id number] SPECIMEN COMMENT: URINE SOURCE: URINE REPORT STATUS: FINAL FINAL REPORT: 05/15/2023 >100,000 CFU/ML UROGENITAL REBEL PRESENT NOCOMMON PATHOGENS UNLESS OTHERWISE INDICATED, ALL TESTING PERFORMED AT [facility] [address] [place] [address] EXPLOITATION ANALYST: JANNY STEINER M.D. CLIA NUMBER [id number] [place]. [id number], [id number] 12:02:50SPECIMEN NUMBER: [id number] CULTURE, URINE SPECIMEN NUMBER: [id number] SOURCE: URINE REPORT STATUS: FINAL FINAL REPORT: 05/13/2023 NO SPECIMEN RECEIVED FOR TESTING. CHARGES DELETED.BASIC METABOLIC [id number] 04:48:43* Test Item Value Reference Range Interpretation Comme nts GLUCOSE (test code = 2217) 117 MG/DL 70-99 H BUN (test code = 2208) 20 MG/DL 6-20 CREATININE (test code = 2214) 0.83 MG/DL 0.60-1.30 eGFR (2020 CKD-EPI) (test co de = 30886) 85 ML/MIN/1.73 >60 SODIUM (test code = [...] 12.7 SECONDS 12.5-14.7 INR (test code = 91821) 0.9 SEE BELOW CURRENT RECOMMENDATIONS ARE FOR AN INR OF 2.0-3.0 FOR ALL PATIENTS ON VITAMIN K ANTAGONISTS, EXCEPT THOSE WITH PROSTHETIC HEART VALVES, FOR WHOM INR OF 2.5-3.5 IS RECOMMENDED. UNLESS OTHERWISE INDICATED, ALL TESTING PERFORMED AT [facility] [address] [place] [address] EXPLOITATION ANALYST: JANNY STEINER M.D. [place] NUMBER [id number] [facility] [place]. [id number] CBC W/AUTO DIFF WITH [id number] 01:54:17* Test Item Value Reference Range Interpretation [...] = 1065) 0.0 /100 WBC'S See_Comment [Automated [employer] ge] The system which generated this result [...] H ABS NUCLEATED RBCS (test code = 34921) 0.00 K/UL 0.00-0.11 ECG 12 [id number] 14:02:48Ventricular Rate 102 BPMAtrial Rate 102 BPMP-R Interval 146 msQRS Duration 90 msQ-T Interval 372 msQTC Calculation(Bazett) 484 msP Boyd 11 degreesR Boyd -53 degreesT Boyd 29 degrees Sinus tachycardiaPossible Left atrial enlargementLeft axis deviationPoor R wave progression Cannot rule out Anterior infarct , age undetermined vs lead misplacementNonspecific T wave abnormalityProlonged QTAbnormal ECGNo previous ECGs availableConfirmed by David GARCIA BASANT ([id number]) on 04/06/2023 2:02:46 [facility]AST & [id number] 13:11:39Transthoracic Echocardiography Report (TTE) Demographics Patient Name YUE LAWS Date of Study 03/31/2023 ESTELLE Gender Female Visit Number [id number] Race 122 Room Number 2227 Number Date of 1970 Referring Physician Mariah Aldridge MD Age 53year(s) Warehouse Team Leader Wilmer Francois [employer] Examiner Josefina Corbett, AISHWARYA Interpreting Physician Melody MDProcedure [...] Velocity: 0.74 m/s Peak Gradient: 2.22 mmHgCHI Saint Louise Regional HospitalXR chest 1 view portable / [id number] 15:39:07TECHNIQUE: Frontal view of the chest. INDICATION: CHf. COMPARISON: None. FINDINGS: LINES/TUBES: None. HEART AND MEDIASTINUM: Cardiomediastinal contour is within normallimits. LUNGS: The lungs are well inflated and clear. No consolidation orpulmonary edema. PLEURA: No pneumothorax. No significant pleural effusion. SOFT TISSUES AND BONES: Cervical spinal fixation hardware is noted.[facility]XR CHEST 1 VIEW PORTABLE / [id number] 15:39:07 [facility] : 1970 Sex: FTECHNIQUE: Frontal view of the chest.INDICATION: CHf.COMPARISON: None.FINDINGS:LINES/TUBES: None.HE ART AND MEDIASTINUM: Cardiomediastinal contour is within normallimits. LUNGS: The lungs are well inflated and clear. No consolidation orpulmonary edema.PLEURA: No pneumothorax. No significant pleuraleffusion.SOFT TISSUES AND BONES: Cervical spinal fixation hardware is noted.IMPRESSION:No acute card iopulmonary process.Electronically Signed By: Jose Carlos Lebron04/01/2023 15:41 CDTWorkstation Name: [id number] NATRIURETIC FACTOR (BNP)2023-04-01 14:15:07* Test Item Value Reference Range Interpretation Comme nts B-TYPE NATRIURETIC PEPTIDE ( BEAKER) (test code = 700) 192 pg/mL 0-100 H Audio Visual Aids Director ID - ADMINMR spine cervical without IV [id number] 11:30:35MRI cervical spine without contrast CLINICAL HISTORY: [...] and paraspinal soft tissues are within normal limits.[facility] HospitalMR CERVICAL SPINE WITHOUT IV [id number] 11:30:35 [facility] : 1970 Sex: [...] Signed By: Maxim Sultana03/31/2023 11:32 CDTWorkstation Name: [id number] METABOLIC [id number] 04:43:14* Test Item Value Reference Range Interpretation [...] GFR is not applicable for dialysis patients Audio Visual Aids Director GEOVANNA Santoyo [facility] [facility]2023-03-31 04:20:07* Test Item Value Reference [...] 0 /100 WBC 0-0 Arterial doppler legs [id number] 17:44:07PV LAB - Lower Extremity Arterial Duplex Demographics Patient Name YUE LAWS Date of Study ESTELLE Age 53 Visit Number [id number] Gender Female Accession Number [id number] Date of 1970 Referring Mariah Aldridge, Room Number 2227 Physician Warehouse Team Leader Yovana Akins Interpreting John Solorio, Physician FellowProcedureType [...] + + + + + + !Prox [employer] ! !32 ! !Biphasic ! !60.9 ! !Triphasic ! +- + + + + + + + + + !Mid [employer] ! !25.9 ! !Biphasic ! !59.7 ! !Triphasic ! + + + + + + + + + + !Dist [employer] ! !33.2 ! !Biphasic ! !37.4 ! [...] + + + + + + +[facility](Ankle/Brachial Index)2023-03-30 17:13:47PV LAB - Lower Extremity Arterial Procedure Demographics Patient Name YUE LAWS Date of Study 03/30/2023 ESTELLE Age 53 Visit Number [id number] Gender Female Accession Number [id number] Date of 1970 Referring Mariah Jasen, Room Number 2227 Physician Warehouse Team Leader Yovana Akins Interpreting John Sloorio, Physician FellowProcedureType of Study: Extremities Arteries: Lower [...] in cm/s ; Diameters are measured in [facility] thoracic spine without IV [id number] 12:50:50MR THORACIC SPINE WITHOUT IV CONTRAST INDICATION: [...] abnormality. T10-11 moderate right neural foraminal stenosis tqhI66-15 moderate bilateral foraminal stenosis due to facet hypertrophyand ligamentum flavum redundancy. Thoracic vertebrae maintain normal height. Mild multilevel degenerativedisc changes. No evidence of acute osseous fracture or traumaticmalalignment. No paraspinal mass. Conus medullaris terminates at L1. Redundant cauda equina partiallyimaged and further reported on MRI lumbar spine.[facility] [id number] 12:50:50 [facility] : 1970 Sex: [...] abnormality. T10-11 moderate right neural foraminal stenosis acaH98-81 moderate bilateral foraminal stenosis due to facet [...] Signed By: Ryan Buckley03/30/2023 12:52 CDTWorkstation Name: [id number] spine lumbar without IV [id number] 12:33:57MR LUMBAR SPINE WITHOUT IV CONTRAST INDICATION: Unlisted Reason for ExamConcern for cord compression COMPARISON: None TECHNIQUE: Multiplanar, multisequence MR images of the lumbar spinewithout contrast. FINDINGS: For the purposes of this dictation, the 5 lowermost ukynjx-zndxjiplhogej-bsbu vertebral bodies are labeled L1-L5.Alignment of the [...] with mild to moderatebilateral neural foraminal stenosisCHI [facility] HospitalMR LUMBAR SPINE WITHOUT IV [id number] 12:33:57 [facility] : 1970 Sex: FMR LUMBAR SPINE WITHOUT IV CONTRASTINDICATION: Unlisted Reason for ExamConcern for cord compressionCOMPARISON: NoneTECHNIQUE: Multiplanar, multisequence MR images of the lumbar spinewithout contrast. FINDINGS: For the purposes of this dictation, the 5 lowermost ftmfwr-psogmtpgrgikl-hlwj vertebral bodies are labeled L1- L5.Alignment of the lumbar spine is within normal limits. Vertebral body height is maintained. Bone marrow edema is seen at the inferior L3 and superior L4 vertebralbodies and bilateral L4 pedicles, favored to be degenerative in nature.Suggestion of a synovial cyst at the zavyhJ00-G83 level (series 301image eight).No spinal cord signal [...] flavum buckling versus synovial cyst at the lvetlI79-R60 level (series 301image eight). MRI thoracic spine can beconsidered for further evaluation.7. Mild clumping of the cauda equina nerve roots, which is nonspecificbut may represent arachnoiditis. Postcontrast imaging can be consideredfor further evaluation.Electronically Signed By: Maxim Sultana03/30/2023 12:36 CDTWorkstation Name: [id number] [id number] 11:45:01* Test Item Value Reference Range Interpretation [...] 5.7- 6.4% indicates increased risk for diabetes (prediabetes)."[employer] Visual [employer] Director ID - ADMEEG AWAKE AND [id number] 09:57:53Steph Martinez MD 03/30/2023 9:59 AMELECTROENCEPHALOGRAM FOR [facility] Type: [facility], outpatient, EMUDATE(s) OF EE03/30/23DATE OF REPORT: 03/30/23MRN: [id number] of : [id number]-1454Start time: 08:36Stop time: 09:23ICD-10: R56.9 CPT Code: 12381 (awake and asleep)HISTORY: 53 y/o female with [...] EEG recordings. Steph Elias MD, MPHNeurophysiology/Epilepsy AttendingCH[facility] EEG AWAKE AND [id number] 09:57:53Gadarcy Martinez MD 03/30/2023 9:59 AMELECTROENCEPHALOGRAM FOR [facility] EEG Type: Inpatient, outpatient, EMUDATE(s) OF EE03/30/23DATE OF REPORT: 03/30/23MRN: [id number] of : [id number] time: 08:36Stop time: 09:23ICD-10: R56.9 CPT Code: 77382 (awake and asleep)HISTORY: 53 y/o female with [...] EEG recordings. Steph Elias MD, MPHNeurophysiology/Epilepsy AttendingCH[facility] EEG AWAKE AND [id number] 09:57:53Steph Martinez MD 03/30/2023 9:59 AMELECTROENCEPHALOGRAM FOR [facility] EEG Type: Inpatient, outpatient, EMUDATE(s) OF EE03/30/23DATE OF REPORT: 03/30/23MRN: [id number] of : 1970EE-1454Start time: 08:36Stop time: 09:23ICD-10: R56.9 CPT Code: 13153 (awake and asleep)HISTORY: 53 y/o female with [...] EEG recordings. Steph Elias MD, MPHNeurophysiology/Epilepsy AttendingCHI [facility] HospitalIC ACID LEVEL, [id number] 09:42:31* Test Item Value Reference Range Interpretation Comme nts VALPROIC ACID TOTAL (BEAKER) (test code = 924) 76 ug/mL 50-100 Therapeutic range for some clinical conditions may be >100 ug/mLUrinalysis w/Microscopic + Reflex to [id number] 08:43:51* Test Item Value Reference Range Interpretation Comme nts Color, UA (test code = 5778-6) Yellow Clarity, UA (test code = 5767-9) Clear Specific Ridgely, UA (test code = 5811-5) 1.033 1.001-1.035 pH, UA (test code = 5803-2) 6.0 5.0-8.0 Protein, UA (test code = 14704-5) 30 mg/dL Negative A Glucose, UA (test code = 365) Negative Negative Ketones, UA (test code = 2514-8) Negative Negative Bilirubin, UA (test code = 83759-4) Negative Negative Blood, UA (test code = 05681-6) Small Negative A Nitrite, UA (test code = 5802-4) Negative Negative Leukocytes, UA (test code = 5799-2) Negative Negative Urobilinogen, UA (test code = 46532-7) 0.2 0.2-1.0 RBC, UA (test code = 48546-1) 51 See_Comment [Automated message] The system which [...] Occasional Squam Epithel, UA (test code = 70661-4) See_Comment [Automated message] The system which generated this result transmitted reference range: /HPF. The reference range was not used to interpret this result as normal/abnormal. Specimen Source (test code = 2795) LYNDSAY (test code = LYNDSAY) Audio Visual Aids Director ID - [auto]Audio Visual Aids Director ID - tech Lab Interpretation (test code = 98536-8) [facility]normal [facility] + Reflex to Culture 2023-03-30 08:43:51* Test Item Value Reference Range Interpretation Comme nts Color, UA (test code = 5778-6) Yellow Clarity, UA (test code = 5767-9) Clear Specific Ridgely, UA (test code = 5811-5) 1.033 1.001-1.035 pH, UA (test code = 5803-2) 6.0 5.0-8.0 Protein, UA (test code = 75719-2) 30 mg/dL Negative A Glucose, UA (test code = 365) Negative Negative Ketones, UA (test code = 2514-8) Negative Negative Bilirubin, UA (test code = 95899-6) Negative Negative Blood, UA (test code = 97238-6) Small Negative A Nitrite, UA (test code = 5802-4) Negative Negative Leukocytes, UA (test code = 5799-2) Negative Negative Urobilinogen, UA (test code = 70411-5) 0.2 0.2-1.0 RBC, UA (test code = 24449-2) 51 See_Comment [Automated message] The system which [...] Occasional Squam Epithel, UA (test code = 95521-1) See_Comment [Automated message] The system which generated this result transmitted reference range: /HPF. The reference range was not used to interpret this result as normal/abnormal. Specimen Source (test code = 2795) LYNDSAY (test code = LYNDSAY) [employer] Visual Aids Director ID - [auto]Audio Visual Aids Director ID - tech Lab Interpretation (test code = 06709-2) Abnormal [facility] HospitalUrinalysis w/Microscopic + Reflex to Culture 2023-03-30 08:43:51* Test Item Value Reference Range Interpretation Comme nts Color, UA (test code = 5778-6) Yellow Clarity, UA (test code = 5767-9) Clear Specific Ridgely, UA (test code = 5811-5) 1.033 1.001-1.035 pH, UA (test code = 5803-2) 6.0 5.0-8.0 Protein, UA (test code = 08363-3) 30 mg/dL Negative A Glucose, UA (test code = 365) Negative Negative Ketones, UA (test code = 2514-8) Negative Negative Bilirubin, UA (test code = 32813-7) Negative Negative Blood, UA (test code = 27994-5) Small Negative A Nitrite, UA (test code = 5802-4) Negative Negative Leukocytes, UA (test code = 5799-2) Negative Negative Urobilinogen, UA (test code = 37826-7) 0.2 0.2-1.0 RBC, UA (test code = 52442-0) 51 See_Comment [Automated message] The system which [...] Occasional Squam Epithel, UA (test code = 71434-8) See_Comment [Automated message] The system which generated this result transmitted reference range: /HPF. The reference range was not used to interpret this result as normal/abnormal. Specimen Source (test code = 2795) LYNDSAY (test code = LYNDSAY) [employer] Visual A[employer] Director ID - [auto]Audio Visual Aids Director ID - tech Lab Interpretation (test code = 79433-0) Abnormal [facility] HospitalUrinal[facility] w/Microscopic + Reflex to Culture 2023-03-30 08:43:51* Test Item Value Reference Range Interpretation Comme nts Color, UA (test code = 5778-6) Yellow Clarity, UA (test code = 5767-9) Clear Specific Ridgely, UA (test code = 5811-5) 1.033 1.001-1.035 pH, UA (test code = 5803-2) 6.0 5.0-8.0 Protein, UA (test code = 54315-5) 30 mg/dL Negative A Glucose, UA (test code = 365) Negative Negative Ketones, UA (test code = 2514-8) Negative Negative Bilirubin, UA (test code = 63143-6) Negative Negative Blood, UA (test code = 25161-7) Small Negative A Nitrite, UA (test code = 5802-4) Negative Negative Leukocytes, UA (test code = 5799-2) Negative Negative Urobilinogen, UA (test code = 10060-6) 0.2 0.2-1.0 RBC, UA (test code = 85481-4) 51 See_Comment [Automated message] The system which [...] Occasional Squam Epithel, UA (test code = 69201-6) See_Comment [Automated message] The system which generated this result transmitted reference range: /HPF. The reference range was not used to interpret this result as normal/abnormal. Specimen Source (test code = 2795) LYNDSAY (test code = LYNDSAY) [employer] Visual Aids Director ID - [auto]Audio Visual Aids Director ID - tech Lab Interpretation (test code = 02534-1) Abnormal [facility] HospitalUrinal[facility] w/Microscopic + Reflex to Culture 2023-03-30 08:43:51* Test Item Value Reference Range Interpretation Comme nts Color, UA (test code = 5778-6) Yellow Clarity, UA (test code = 5767-9) Clear Specific Ridgely, UA (test code = 5811-5) 1.033 1.001-1.035 pH, UA (test code = 5803-2) 6.0 5.0-8.0 Protein, UA (test code = 44323-7) 30 mg/dL Negative A Glucose, UA (test code = 365) Negative Negative Ketones, UA (test code = 2514-8) Negative Negative Bilirubin, UA (test code = 91317-1) Negative Negative Blood, UA (test code = 37274-0) Small Negative A Nitrite, UA (test code = 5802-4) Negative Negative Leukocytes, UA (test code = 5799-2) Negative Negative Urobilinogen, UA (test code = 05982-6) 0.2 0.2-1.0 RBC, UA (test code = 29330-2) 51 See_Comment [Automated message] The system which [...] Occasional Squam Epithel, UA (test code = 09597-6) See_Comment [Automated message] The system which generated this result transmitted reference range: /HPF. The reference range was not used to interpret this result as normal/abnormal. Specimen Source (test code = 2795) LYNDSAY (test code = LYNDSAY) [employer] Visual Aids Director ID - [auto]Audio Visual Aids Director ID - tech Lab Interpretation (test code = 74642-5) Abnormal [facility] w/Microscopic + Reflex to Culture 2023-03-30 08:43:51* Test Item Value Reference Range Interpretation Comme nts Color, UA (test code = 5778-6) Yellow Clarity, UA (test code = 5767-9) Clear Specific Ridgely, UA (test code = 5811-5) 1.033 1.001-1.035 pH, UA (test code = 5803-2) 6.0 5.0-8.0 Protein, UA (test code = 11031-5) 30 mg/dL Negative A Glucose, UA (test code = 365) Negative Negative Ketones, UA (test code = 2514-8) Negative Negative Bilirubin, UA (test code = 26185-9) Negative Negative Blood, UA (test code = 38991-7) Small Negative A Nitrite, UA (test code = 5802-4) Negative Negative Leukocytes, UA (test code = 5799-2) Negative Negative Urobilinogen, UA (test code = 94214-1) 0.2 0.2-1.0 RBC, UA (test code = 29058-1) 51 See_Comment [Automated message] The system which [...] Occasional Squam Epithel, UA (test code = 06296-9) See_Comment [Automated message] The system which generated this result transmitted reference range: /HPF. The reference range was not used to interpret this result as normal/abnormal. Specimen Source (test code = 2795) LYNDSAY (test code = LYNDSAY) Audio Visual Aids Director ID - [auto]Audio Visual Aids Director ID - tech Lab Interpretation (test code = 89586-8) Abnormal [facility]/Microscopic + Reflex to Culture 2023-03-30 08:43:51* Test Item Value Reference Range Interpretation Comme nts Color, UA (test code = 5778-6) Yellow Clarity, UA (test code = 5767-9) Clear Specific Ridgely, UA (test code = 5811-5) 1.033 1.001-1.035 pH, UA (test code = 5803-2) 6.0 5.0-8.0 Protein, UA (test code = 26710-8) 30 mg/dL Negative A Glucose, UA (test code = 365) Negative Negative Ketones, UA (test code = 2514-8) Negative Negative Bilirubin, UA (test code = 31779-6) Negative Negative Blood, UA (test code = 28343-8) Small Negative A Nitrite, UA (test code = 5802-4) Negative Negative Leukocytes, UA (test code = 5799-2) Negative Negative Urobilinogen, UA (test code = 39542-0) 0.2 0.2-1.0 RBC, UA (test code = 52902-7) 51 See_Comment [Automated message] The system which [...] Occasional Squam Epithel, UA (test code = 64797-7) See_Comment [Automated message] The system which generated this result transmitted reference range: /HPF. The reference range was not used to interpret this result as normal/abnormal. Specimen Source (test code = 2795) LYNDSAY (test code = LYNDSAY) Audio Visual Aids Director ID - [auto]Audio Visual Aids Director ID - tech Lab Interpretation (test code = 06724-1) [facility]normal [facility] Reflex to Culture 2023-03-30 08:43:51* Test Item Value Reference Range Interpretation Comme nts Color, UA (test code = 5778-6) Yellow Clarity, UA (test code = 5767-9) Clear Specific Ridgely, UA (test code = 5811-5) 1.033 1.001-1.035 pH, UA (test code = 5803-2) 6.0 5.0-8.0 Protein, UA (test code = 02718-9) 30 mg/dL Negative A Glucose, UA (test code = 365) Negative Negative Ketones, UA (test code = 2514-8) Negative Negative Bilirubin, UA (test code = 51039-5) Negative Negative Blood, UA (test code = 32223-6) Small Negative A Nitrite, UA (test code = 5802-4) Negative Negative Leukocytes, UA (test code = 5799-2) Negative Negative Urobilinogen, UA (test code = 48528-0) 0.2 0.2-1.0 RBC, UA (test code = 38534-7) 51 See_Comment [Automated message] The system which [...] Occasional Squam Epithel, UA (test code = 48154-6) See_Comment [Automated message] The system which generated this result transmitted reference range: /HPF. The reference range was not used to interpret this result as normal/abnormal. Specimen Source (test code = 2795) LYNDSAY (test code = LYNDSAY) Audio Visual Aids Director ID - [auto]Audio Visual Aids Director ID - tech Lab Interpretation (test code = 28222-5) [facility]normal [facility] + Reflex to Culture 2023-03-30 08:43:51* Test Item Value Reference Range Interpretation Comme nts Color, UA (test code = 5778-6) Yellow Clarity, UA (test code = 5767-9) Clear Specific Ridgely, UA (test code = 5811-5) 1.033 1.001-1.035 pH, UA (test code = 5803-2) 6.0 5.0-8.0 Protein, UA (test code = 63843-7) 30 mg/dL Negative A Glucose, UA (test code = 365) Negative Negative Ketones, UA (test code = 2514-8) Negative Negative Bilirubin, UA (test code = 75031-9) Negative Negative Blood, UA (test code = 03965-0) Small Negative A Nitrite, UA (test code = 5802-4) Negative Negative Leukocytes, UA (test code = 5799-2) Negative Negative Urobilinogen, UA (test code = 14632-2) 0.2 0.2-1.0 RBC, UA (test code = 11904-4) 51 See_Comment [Automated message] The system which [...] Occasional Squam Epithel, UA (test code = 48797-9) See_Comment [Automated message] The system which generated this result transmitted reference range: /HPF. The reference range was not used to interpret this result as normal/abnormal. Specimen Source (test code = 2795) LYNDSAY (test code = LYNDSAY) Audio Visual Aids Director ID - [auto]Audio Visual Aids Director ID - tech Lab Interpretation (test code = 73281-9) [facility]normal [facility] + Reflex to Culture 2023-03-30 08:43:51* Test Item Value Reference Range Interpretation Comme nts Color, UA (test code = 5778-6) Yellow Clarity, UA (test code = 5767-9) Clear Specific Ridgely, UA (test code = 5811-5) 1.033 1.001-1.035 pH, UA (test code = 5803-2) 6.0 5.0-8.0 Protein, UA (test code = 06287-1) 30 mg/dL Negative A Glucose, UA (test code = 365) Negative Negative Ketones, UA (test code = 2514-8) Negative Negative Bilirubin, UA (test code = 38743-4) Negative Negative Blood, UA (test code = 60515-7) Small Negative A Nitrite, UA (test code = 5802-4) Negative Negative Leukocytes, UA (test code = 5799-2) Negative Negative Urobilinogen, UA (test code = 91226-7) 0.2 0.2-1.0 RBC, UA (test code = 93833-6) 51 See_Comment [Automated message] The system which [...] Occasional Squam Epithel, UA (test code = 60777-8) See_Comment [Automated message] The system which generated this result transmitted reference range: /HPF. The reference range was not used to interpret this result as normal/abnormal. Specimen Source (test code = 2795) LYNDSAY (test code = LYNDSAY) Audio Visual Aids Director ID - [auto]Audio Visual Aids Director ID - tech Lab Interpretation (test code = 23010-3) Abnormal [facility] + Reflex to Culture 2023-03-30 08:43:51* Test Item Value Reference Range Interpretation Comme nts Color, UA (test code = 5778-6) Yellow Clarity, UA (test code = 5767-9) Clear Specific Ridgely, UA (test code = 5811-5) 1.033 1.001-1.035 pH, UA (test code = 5803-2) 6.0 5.0-8.0 Protein, UA (test code = 96223-1) 30 mg/dL Negative A Glucose, UA (test code = 365) Negative Negative Ketones, UA (test code = 2514-8) Negative Negative Bilirubin, UA (test code = 23277-5) Negative Negative Blood, UA (test code = 49171-2) Small Negative A Nitrite, UA (test code = 5802-4) Negative Negative Leukocytes, UA (test code = 5799-2) Negative Negative Urobilinogen, UA (test code = 06084-1) 0.2 0.2-1.0 RBC, UA (test code = 65265-1) 51 See_Comment [Automated message] The system which [...] Occasional Squam Epithel, UA (test code = 25369-3) See_Comment [Automated message] The system which generated this result transmitted reference range: /HPF. The reference range was not used to interpret this result as normal/abnormal. Specimen Source (test code = 2795) LYNDSAY (test code = LYNDSAY) Audio Visual Aids Director ID - [auto]Audio Visual Aids Director ID - tech Lab Interpretation (test code = 02094-9) Abnormal [facility] + Reflex to Culture 2023-03-30 08:43:51* Test Item Value Reference Range Interpretation Comme nts Color, UA (test code = 5778-6) Yellow Clarity, UA (test code = 5767-9) Clear Specific Ridgely, UA (test code = 5811-5) 1.033 1.001-1.035 pH, UA (test code = 5803-2) 6.0 5.0-8.0 Protein, UA (test code = 83369-1) 30 mg/dL Negative A Glucose, UA (test code = 365) Negative Negative Ketones, UA (test code = 2514-8) Negative Negative Bilirubin, UA (test code = 73906-8) Negative Negative Blood, UA (test code = 48057-7) Small Negative A Nitrite, UA (test code = 5802-4) Negative Negative Leukocytes, UA (test code = 5799-2) Negative Negative Urobilinogen, UA (test code = 15344-9) 0.2 0.2-1.0 RBC, UA (test code = 49297-4) 51 See_Comment [Automated message] The system which [...] Occasional Squam Epithel, UA (test code = 12155-0) See_Comment [Automated message] The system which generated this result transmitted reference range: /HPF. The reference range was not used to interpret this result as normal/abnormal. Specimen Source (test code = 2795) LYNDSAY (test code = LYNDSAY) Audio Visual Aids Director ID - [auto]Audio Visual Aids Director ID - tech Lab Interpretation (test code = 52744-8) Abnormal [facility]Microscopic + Reflex to Culture 2023-03-30 08:43:51* Test Item Value Reference Range Interpretation Comme nts Color, UA (test code = 5778-6) Yellow Clarity, UA (test code = 5767-9) Clear Specific Ridgely, UA (test code = 5811-5) 1.033 1.001-1.035 pH, UA (test code = 5803-2) 6.0 5.0-8.0 Protein, UA (test code = 84248-8) 30 mg/dL Negative A Glucose, UA (test code = 365) Negative Negative Ketones, UA (test code = 2514-8) Negative Negative Bilirubin, UA (test code = 34706-4) Negative Negative Blood, UA (test code = 63369-2) Small Negative A Nitrite, UA (test code = 5802-4) Negative Negative Leukocytes, UA (test code = 5799-2) Negative Negative Urobilinogen, UA (test code = 87999-0) 0.2 0.2-1.0 RBC, UA (test code = 04310-5) 51 See_Comment [Automated message] The system which [...] Occasional Squam Epithel, UA (test code = 67783-1) See_Comment [Automated message] The system which generated this result transmitted reference range: /HPF. The reference range was not used to interpret this result as normal/abnormal. Specimen Source (test code = 2795) LYNDSAY (test code = LYNDSAY) Audio Visual Aids Director ID - [auto]Audio Visual Aids Director ID - tech Lab Interpretation (test code = 09135-4) Abnormal [facility]opic + Reflex to Culture 2023-03-30 08:43:51* Test Item Value Reference Range Interpretation Comme nts Color, UA (test code = 5778-6) Yellow Clarity, UA (test code = 5767-9) Clear Specific Ridgely, UA (test code = 5811-5) 1.033 1.001-1.035 pH, UA (test code = 5803-2) 6.0 5.0-8.0 Protein, UA (test code = 46158-4) 30 mg/dL Negative A Glucose, UA (test code = 365) Negative Negative Ketones, UA (test code = 2514-8) Negative Negative Bilirubin, UA (test code = 90357-6) Negative Negative Blood, UA (test code = 36958-0) Small Negative A Nitrite, UA (test code = 5802-4) Negative Negative Leukocytes, UA (test code = 5799-2) Negative Negative Urobilinogen, UA (test code = 14206-8) 0.2 0.2-1.0 RBC, UA (test code = 54326-5) 51 See_Comment [Automated message] The system which [...] Occasional Squam Epithel, UA (test code = 27930-8) See_Comment [Automated message] The system which generated this result transmitted reference range: /HPF. The reference range was not used to interpret this result as normal/abnormal. Specimen Source (test code = 2795) LYNDSAY (test code = LYNDSAY) Audio Visual Aids Director ID - [auto]Audio Visual Aids Director ID - tech Lab Interpretation (test code = 88298-5) [facility]normal [facility] + Reflex to Culture 2023-03-30 08:43:51* Test Item Value Reference Range Interpretation Comme nts Color, UA (test code = 5778-6) Yellow Clarity, UA (test code = 5767-9) Clear Specific Ridgely, UA (test code = 5811-5) 1.033 1.001-1.035 pH, UA (test code = 5803-2) 6.0 5.0-8.0 Protein, UA (test code = 62559-5) 30 mg/dL Negative A Glucose, UA (test code = 365) Negative Negative Ketones, UA (test code = 2514-8) Negative Negative Bilirubin, UA (test code = 11633-3) Negative Negative Blood, UA (test code = 92635-4) Small Negative A Nitrite, UA (test code = 5802-4) Negative Negative Leukocytes, UA (test code = 5799-2) Negative Negative Urobilinogen, UA (test code = 24305-7) 0.2 0.2-1.0 RBC, UA (test code = 14167-8) 51 See_Comment [Automated message] The system which [...] Occasional Squam Epithel, UA (test code = 62297-0) See_Comment [Automated message] The system which generated this result transmitted reference range: /HPF. The reference range was not used to interpret this result as normal/abnormal. Specimen Source (test code = 2795) LYNDSAY (test code = LYNDSAY) [employer] Visual Aids Director ID - [auto]Audio Visual Aids Director ID - tech Lab Interpretation (test code = 79874-8) [facility] 08:43:51* Test Item Value Reference Range Interpretation Comme nts Color, UA (test code = 5778-6) Yellow Clarity, UA (test code = 5767-9) Clear Specific Ridgely, UA (test code = 5811-5) 1.033 1.001-1.035 pH, UA (test code = 5803-2) 6.0 5.0-8.0 Protein, UA (test code = 53477-2) 30 mg/dL Negative A Glucose, UA (test code = 365) Negative Negative Ketones, UA (test code = 2514-8) Negative Negative Bilirubin, UA (test code = 27588-0) Negative Negative Blood, UA (test code = 73474-8) Small Negative A Nitrite, UA (test code = 5802-4) Negative Negative Leukocytes, UA (test code = 5799-2) Negative Negative Urobilinogen, UA (test code = 96368-6) 0.2 0.2-1.0 RBC, UA (test code = 33107-1) 51 See_Comment [Automated message] The system which [...] Occasional Squam Epithel, UA (test code = 90626-3) See_Comment [Automated message] The system which generated this result transmitted reference range: /HPF. The reference range was not used to interpret this result as normal/abnormal. Specimen Source (test code = 2795) LYNDSAY (test code = LYNDSAY) Audio Visual Aids Director ID - [auto]Audio Visual Aids Director ID - tech Lab Interpretation (test code = 55385-9) [facility] 2023-[facility]-30 08:43:51* Test Item Value Reference Range Interpretation Comme nts Color, UA (test code = 5778-6) Yellow Clarity, UA (test code = 5767-9) Clear Specific Ridgely, UA (test code = 5811-5) 1.033 1.001-1.035 pH, UA (test code = 5803-2) 6.0 5.0-8.0 Protein, UA (test code = 90537-6) 30 mg/dL Negative A Glucose, UA (test code = 365) Negative Negative Ketones, UA (test code = 2514-8) Negative Negative Bilirubin, UA (test code = 92922-4) Negative Negative Blood, UA (test code = 43984-7) Small Negative A Nitrite, UA (test code = 5802-4) Negative Negative Leukocytes, UA (test code = 5799-2) Negative Negative Urobilinogen, UA (test code = 44923-4) 0.2 0.2-1.0 RBC, UA (test code = 50281-2) 51 See_Comment [Automated message] The system which [...] Occasional Squam Epithel, UA (test code = 17877-9) See_Comment [Automated message] The system which generated this result transmitted reference range: /HPF. The reference range was not used to interpret this result as normal/abnormal. Specimen Source (test code = 2795) LYNDSAY (test code = LYNDSAY) Audio Visual Aids Director ID - [auto]Audio Visual Aids Director ID - tech Lab Interpretation (test code = 77269-8) [facility]30 08:43:51* Test Item Value Reference Range Interpretation Comme nts Color, UA (test code = 5778-6) Yellow Clarity, UA (test code = 5767-9) Clear Specific Ridgely, UA (test code = 5811-5) 1.033 1.001-1.035 pH, UA (test code = 5803-2) 6.0 5.0-8.0 Protein, UA (test code = 58079-0) 30 mg/dL Negative A Glucose, UA (test code = 365) Negative Negative Ketones, UA (test code = 2514-8) Negative Negative Bilirubin, UA (test code = 12953-6) Negative Negative Blood, UA (test code = 61379-7) Small Negative A Nitrite, UA (test code = 5802-4) Negative Negative Leukocytes, UA (test code = 5799-2) Negative Negative Urobilinogen, UA (test code = 51006-0) 0.2 0.2-1.0 RBC, UA (test code = 09563-9) 51 See_Comment [Automated message] The system which [...] Occasional Squam Epithel, UA (test code = 69253-8) See_Comment [Automated message] The system which generated this result transmitted reference range: /HPF. The reference range was not used to interpret this result as normal/abnormal. Specimen Source (test code = 2795) LYNDSAY (test code = LYNDSAY) Audio Visual Aids Director ID - [auto]Audio Visual Aids Director ID - tech Lab Interpretation (test code = 38199-9) [facility] 2023-03-30 08:43:51* Test Item Value Reference Range Interpretation Comme nts Color, UA (test code = 5778-6) Yellow Clarity, UA (test code = 5767-9) Clear Specific Ridgely, UA (test code = 5811-5) 1.033 1.001-1.035 pH, UA (test code = 5803-2) 6.0 5.0-8.0 Protein, UA (test code = 77401-3) 30 mg/dL Negative A Glucose, UA (test code = 365) Negative Negative Ketones, UA (test code = 2514-8) Negative Negative Bilirubin, UA (test code = 14135-2) Negative Negative Blood, UA (test code = 86908-6) Small Negative A Nitrite, UA (test code = 5802-4) Negative Negative Leukocytes, UA (test code = 5799-2) Negative Negative Urobilinogen, UA (test code = 88839-3) 0.2 0.2-1.0 RBC, UA (test code = 24007-5) 51 See_Comment [Automated message] The system which [...] Occasional Squam Epithel, UA (test code = 58201-0) See_Comment [Automated message] The system which generated this result transmitted reference range: /HPF. The reference range was not used to interpret this result as normal/abnormal. Specimen Source (test code = 2795) LYNDSAY (test code = LYNDSAY) Audio Visual Aids Director ID - [auto]Audio Visual Aids Director ID - tech Lab Interpretation (test code = 18688-1) [facility] Culture 2023-03-30 08:43:51* Test Item Value Reference Range Interpretation Comme nts Color, UA (test code = 5778-6) Yellow Clarity, UA (test code = 5767-9) Clear Specific Ridgely, UA (test code = 5811-5) 1.033 1.001-1.035 pH, UA (test code = 5803-2) 6.0 5.0-8.0 Protein, UA (test code = 72625-1) 30 mg/dL Negative A Glucose, UA (test code = 365) Negative Negative Ketones, UA (test code = 2514-8) Negative Negative Bilirubin, UA (test code = 21605-4) Negative Negative Blood, UA (test code = 31385-5) Small Negative A Nitrite, UA (test code = 5802-4) Negative Negative Leukocytes, UA (test code = 5799-2) Negative Negative Urobilinogen, UA (test code = 11706-4) 0.2 0.2-1.0 RBC, UA (test code = 87390-4) 51 See_Comment [Automated message] The system which [...] Occasional Squam Epithel, UA (test code = 26722-3) See_Comment [Automated message] The system which generated this result transmitted reference range: /HPF. The reference range was not used to interpret this result as normal/abnormal. Specimen Source (test code = 2795) LYNDSAY (test code = LYNDSAY) Audio Visual Aids Director ID - [auto]Audio Visual Aids Director ID - tech Lab Interpretation (test code = 33687-0) [facility] Culture 2023-03-30 08:43:51* Test Item Value Reference Range Interpretation Comme nts Color, UA (test code = 5778-6) Yellow Clarity, UA (test code = 5767-9) Clear Specific Ridgely, UA (test code = 5811-5) 1.033 1.001-1.035 pH, UA (test code = 5803-2) 6.0 5.0-8.0 Protein, UA (test code = 53781-1) 30 mg/dL Negative A Glucose, UA (test code = 365) Negative Negative Ketones, UA (test code = 2514-8) Negative Negative Bilirubin, UA (test code = 93876-3) Negative Negative Blood, UA (test code = 61838-7) Small Negative A Nitrite, UA (test code = 5802-4) Negative Negative Leukocytes, UA (test code = 5799-2) Negative Negative Urobilinogen, UA (test code = 40278-5) 0.2 0.2-1.0 RBC, UA (test code = 45301-4) 51 See_Comment [Automated message] The system which [...] Occasional Squam Epithel, UA (test code = 36716-1) See_Comment [Automated message] The system which generated this result transmitted reference range: /HPF. The reference range was not used to interpret this result as normal/abnormal. Specimen Source (test code = 2795) LYNDSAY (test code = LYNDSAY) Audio Visual Aids Director ID - [auto]Audio Visual Aids Director ID - tech Lab Interpretation (test code = 41316-4) [facility] Culture 2023-03-30 08:43:51* Test Item Value Reference Range Interpretation Comme nts Color, UA (test code = 5778-6) Yellow Clarity, UA (test code = 5767-9) Clear Specific Ridgely, UA (test code = 5811-5) 1.033 1.001-1.035 pH, UA (test code = 5803-2) 6.0 5.0-8.0 Protein, UA (test code = 28595-1) 30 mg/dL Negative A Glucose, UA (test code = 365) Negative Negative Ketones, UA (test code = 2514-8) Negative Negative Bilirubin, UA (test code = 48299-9) Negative Negative Blood, UA (test code = 65261-8) Small Negative A Nitrite, UA (test code = 5802-4) Negative Negative Leukocytes, UA (test code = 5799-2) Negative Negative Urobilinogen, UA (test code = 92803-1) 0.2 0.2-1.0 RBC, UA (test code = 69038-2) 51 See_Comment [Automated message] The system which [...] Occasional Squam Epithel, UA (test code = 64414-5) See_Comment [Automated message] The system which generated this result transmitted reference range: /HPF. The reference range was not used to interpret this result as normal/abnormal. Specimen Source (test code = 2795) LYNDSAY (test code = LYNDSAY) Audio Visual Aids Director ID - [auto]Audio Visual Aids Director ID - tech Lab Interpretation (test code = 68271-8) [facility] 2023-03-30 08:43:51* Test Item Value Reference Range Interpretation Comme nts Color, UA (test code = 5778-6) Yellow Clarity, UA (test code = 5767-9) Clear Specific Ridgely, UA (test code = 5811-5) 1.033 1.001-1.035 pH, UA (test code = 5803-2) 6.0 5.0-8.0 Protein, UA (test code = 36720-2) 30 mg/dL Negative A Glucose, UA (test code = 365) Negative Negative Ketones, UA (test code = 2514-8) Negative Negative Bilirubin, UA (test code = 28544-0) Negative Negative Blood, UA (test code = 47502-2) Small Negative A Nitrite, UA (test code = 5802-4) Negative Negative Leukocytes, UA (test code = 5799-2) Negative Negative Urobilinogen, UA (test code = 08801-0) 0.2 0.2-1.0 RBC, UA (test code = 34162-5) 51 See_Comment [Automated message] The system which [...] Occasional Squam Epithel, UA (test code = 62647-0) See_Comment [Automated message] The system which generated this result transmitted reference range: /HPF. The reference range was not used to interpret this result as normal/abnormal. Specimen Source (test code = 2795) LYNDSAY (test code = LYNDSAY) Audio Visual Aids Director ID - [auto]Audio Visual Aids Director ID - tech Lab Interpretation (test code = 99466-3) [facility] 2023-03-30 08:43:51* Test Item Value Reference Range Interpretation Comme nts Color, UA (test code = 5778-6) Yellow Clarity, UA (test code = 5767-9) Clear Specific Ridgely, UA (test code = 5811-5) 1.033 1.001-1.035 pH, UA (test code = 5803-2) 6.0 5.0-8.0 Protein, UA (test code = 71672-4) 30 mg/dL Negative A Glucose, UA (test code = 365) Negative Negative Ketones, UA (test code = 2514-8) Negative Negative Bilirubin, UA (test code = 25457-5) Negative Negative Blood, UA (test code = 21222-4) Small Negative A Nitrite, UA (test code = 5802-4) Negative Negative Leukocytes, UA (test code = 5799-2) Negative Negative Urobilinogen, UA (test code = 66211-2) 0.2 0.2-1.0 RBC, UA (test code = 56018-9) 51 See_Comment [Automated message] The system which [...] Occasional Squam Epithel, UA (test code = 14785-2) See_Comment [Automated message] The system which generated this result transmitted reference range: /HPF. The reference range was not used to interpret this result as normal/abnormal. Specimen Source (test code = 2795) LYNDSAY (test code = LYNDSAY) Audio Visual Aids Director ID - [auto]Audio Visual Aids Director ID - tech Lab Interpretation (test code = 83228-3) [facility] Reflex [facility] Culture 2023-03-30 08:43:51* Test Item Value Reference Range Interpretation Comme nts Color, UA (test code = 5778-6) Yellow Clarity, UA (test code = 5767-9) Clear Specific Ridgely, UA (test code = 5811-5) 1.033 1.001-1.035 pH, UA (test code = 5803-2) 6.0 5.0-8.0 Protein, UA (test code = 03189-8) 30 mg/dL Negative A Glucose, UA (test code = 365) Negative Negative Ketones, UA (test code = 2514-8) Negative Negative Bilirubin, UA (test code = 38618-3) Negative Negative Blood, UA (test code = 66248-9) Small Negative A Nitrite, UA (test code = 5802-4) Negative Negative Leukocytes, UA (test code = 5799-2) Negative Negative Urobilinogen, UA (test code = 02834-5) 0.2 0.2-1.0 RBC, UA (test code = 25090-8) 51 See_Comment [Automated message] The system which [...] Occasional Squam Epithel, UA (test code = 73855-4) See_Comment [Automated message] The system which generated this result transmitted reference range: /HPF. The reference range was not used to interpret this result as normal/abnormal. Specimen Source (test code = 2795) LYNDSAY (test code = LYNDSAY) Audio Visual Aids Director ID - [auto]Audio Visual Aids Director ID - tech Lab Interpretation (test code = 89695-0) [facility] Reflex [facility] Culture 2023-03-30 08:43:51* Test Item Value Reference Range Interpretation Comme nts Color, UA (test code = 5778-6) Yellow Clarity, UA (test code = 5767-9) Clear Specific Ridgely, UA (test code = 5811-5) 1.033 1.001-1.035 pH, UA (test code = 5803-2) 6.0 5.0-8.0 Protein, UA (test code = 81175-2) 30 mg/dL Negative A Glucose, UA (test code = 365) Negative Negative Ketones, UA (test code = 2514-8) Negative Negative Bilirubin, UA (test code = 77104-1) Negative Negative Blood, UA (test code = 25416-6) Small Negative A Nitrite, UA (test code = 5802-4) Negative Negative Leukocytes, UA (test code = 5799-2) Negative Negative Urobilinogen, UA (test code = 94468-3) 0.2 0.2-1.0 RBC, UA (test code = 38418-8) 51 See_Comment [Automated message] The system which [...] Occasional Squam Epithel, UA (test code = 88445-2) See_Comment [Automated message] The system which generated this result transmitted reference range: /HPF. The reference range was not used to interpret this result as normal/abnormal. Specimen Source (test code = 2795) LYNDSAY (test code = LYNDSAY) Audio Visual Aids Director ID - [auto]Audio Visual Aids Director ID - tech Lab Interpretation (test code = 48371-4) [facility] Reflex to Culture 2023-03-30 08:43:51* Test Item Value Reference Range Interpretation Comme nts Color, UA (test code = 5778-6) Yellow Clarity, UA (test code = 5767-9) Clear Specific Ridgely, UA (test code = 5811-5) 1.033 1.001-1.035 pH, UA (test code = 5803-2) 6.0 5.0-8.0 Protein, UA (test code = 83567-8) 30 mg/dL Negative A Glucose, UA (test code = 365) Negative Negative Ketones, UA (test code = 2514-8) Negative Negative Bilirubin, UA (test code = 92271-0) Negative Negative Blood, UA (test code = 37909-9) Small Negative A Nitrite, UA (test code = 5802-4) Negative Negative Leukocytes, UA (test code = 5799-2) Negative Negative Urobilinogen, UA (test code = 48487-2) 0.2 0.2-1.0 RBC, UA (test code = 61078-8) 51 See_Comment [Automated message] The system which [...] Occasional Squam Epithel, UA (test code = 18482-2) See_Comment [Automated message] The system which generated this result transmitted reference range: /HPF. The reference range was not used to interpret this result as normal/abnormal. Specimen Source (test code = 2795) LYNDSAY (test code = LYNDSAY) Audio Visual Aids Director ID - [auto]Audio Visual Aids Director ID - tech Lab Interpretation (test code = 52341-7) [facility] Reflex to Culture 2023-03-30 08:43:51* Test Item Value Reference Range Interpretation Comme nts Color, UA (test code = 5778-6) Yellow Clarity, UA (test code = 5767-9) Clear Specific Ridgely, UA (test code = 5811-5) 1.033 1.001-1.035 pH, UA (test code = 5803-2) 6.0 5.0-8.0 Protein, UA (test code = 76922-3) 30 mg/dL Negative A Glucose, UA (test code = 365) Negative Negative Ketones, UA (test code = 2514-8) Negative Negative Bilirubin, UA (test code = 46482-1) Negative Negative Blood, UA (test code = 92293-8) Small Negative A Nitrite, UA (test code = 5802-4) Negative Negative Leukocytes, UA (test code = 5799-2) Negative Negative Urobilinogen, UA (test code = 94122-1) 0.2 0.2-1.0 RBC, UA (test code = 93883-1) 51 See_Comment [Automated message] The system which [...] Occasional Squam Epithel, UA (test code = 29747-0) See_Comment [Automated message] The system which generated this result transmitted reference range: /HPF. The reference range was not used to interpret this result as normal/abnormal. Specimen Source (test code = 2795) LYNDSAY (test code = LYNDSAY) Audio Visual Aids Director ID - [auto]Audio Visual Aids Director ID - tech Lab Interpretation (test code = 29624-4) [facility] Reflex to Culture 2023-03-30 08:43:51* Test Item Value Reference Range Interpretation Comme nts Color, UA (test code = 5778-6) Yellow Clarity, UA (test code = 5767-9) Clear Specific Ridgely, UA (test code = 5811-5) 1.033 1.001-1.035 pH, UA (test code = 5803-2) 6.0 5.0-8.0 Protein, UA (test code = 16863-7) 30 mg/dL Negative A Glucose, UA (test code = 365) Negative Negative Ketones, UA (test code = 2514-8) Negative Negative Bilirubin, UA (test code = 42130-1) Negative Negative Blood, UA (test code = 97038-6) Small Negative A Nitrite, UA (test code = 5802-4) Negative Negative Leukocytes, UA (test code = 5799-2) Negative Negative Urobilinogen, UA (test code = 39694-4) 0.2 0.2-1.0 RBC, UA (test code = 55726-2) 51 See_Comment [Automated message] The system which [...] Occasional Squam Epithel, UA (test code = 22254-5) See_Comment [Automated message] The system which generated this result transmitted reference range: /HPF. The reference range was not used to interpret this result as normal/abnormal. Specimen Source (test code = 2795) LYNDSAY (test code = LYNDSAY) Audio Visual Aids Director ID - [auto]Audio Visual Aids Director ID - tech Lab Interpretation (test code = 93225-7) [facility] Culture 2023-[facility]-30 08:43:51* Test Item Value Reference Range Interpretation Comme nts Color, UA (test code = 5778-6) Yellow Clarity, UA (test code = 5767-9) Clear Specific Ridgely, UA (test code = 5811-5) 1.033 1.001-1.035 pH, UA (test code = 5803-2) 6.0 5.0-8.0 Protein, UA (test code = 49599-8) 30 mg/dL Negative A Glucose, UA (test code = 365) Negative Negative Ketones, UA (test code = 2514-8) Negative Negative Bilirubin, UA (test code = 39014-2) Negative Negative Blood, UA (test code = 83379-5) Small Negative A Nitrite, UA (test code = 5802-4) Negative Negative Leukocytes, UA (test code = 5799-2) Negative Negative Urobilinogen, UA (test code = 94750-4) 0.2 0.2-1.0 RBC, UA (test code = 01862-3) 51 See_Comment [Automated message] The system which [...] Occasional Squam Epithel, UA (test code = 96889-4) See_Comment [Automated message] The system which generated this result transmitted reference range: /HPF. The reference range was not used to interpret this result as normal/abnormal. Specimen Source (test code = 2795) LYNDSAY (test code = LYNDSAY) Audio Visual Aids Director ID - [auto]Audio Visual Aids Director ID - tech Lab Interpretation (test code = 33533-4) [facility] Culture 2023-03-30 08:43:51* Test Item Value Reference Range Interpretation Comme nts Color, UA (test code = 5778-6) Yellow Clarity, UA (test code = 5767-9) Clear Specific Ridgely, UA (test code = 5811-5) 1.033 1.001-1.035 pH, UA (test code = 5803-2) 6.0 5.0-8.0 Protein, UA (test code = 62270-3) 30 mg/dL Negative A Glucose, UA (test code = 365) Negative Negative Ketones, UA (test code = 2514-8) Negative Negative Bilirubin, UA (test code = 45752-1) Negative Negative Blood, UA (test code = 23350-6) Small Negative A Nitrite, UA (test code = 5802-4) Negative Negative Leukocytes, UA (test code = 5799-2) Negative Negative Urobilinogen, UA (test code = 32792-1) 0.2 0.2-1.0 RBC, UA (test code = 94054-6) 51 See_Comment [Automated message] The system which [...] Occasional Squam Epithel, UA (test code = 49493-4) See_Comment [Automated message] The system which generated this result transmitted reference range: /HPF. The reference range was not used to interpret this result as normal/abnormal. Specimen Source (test code = 2795) LYNDSAY (test code = LYNDSAY) Audio Visual Aids Director ID - [auto]Audio Visual Aids Director ID - tech Lab Interpretation (test code = 13553-7) [facility] Reflex to Culture 2023-03-30 08:43:51* Test Item Value Reference Range Interpretation Comme nts Color, UA (test code = 5778-6) Yellow Clarity, UA (test code = 5767-9) Clear Specific Ridgely, UA (test code = 5811-5) 1.033 1.001-1.035 pH, UA (test code = 5803-2) 6.0 5.0-8.0 Protein, UA (test code = 68821-5) 30 mg/dL Negative A Glucose, UA (test code = 365) Negative Negative Ketones, UA (test code = 2514-8) Negative Negative Bilirubin, UA (test code = 52873-9) Negative Negative Blood, UA (test code = 30493-6) Small Negative A Nitrite, UA (test code = 5802-4) Negative Negative Leukocytes, UA (test code = 5799-2) Negative Negative Urobilinogen, UA (test code = 29866-3) 0.2 0.2-1.0 RBC, UA (test code = 44746-7) 51 See_Comment [Automated message] The system which [...] Occasional Squam Epithel, UA (test code = 30539-1) See_Comment [Automated message] The system which generated this result transmitted reference range: /HPF. The reference range was not used to interpret this result as normal/abnormal. Specimen Source (test code = 2795) LYNDSAY (test code = LYNDSAY) Audio Visual Aids Director ID - [auto]Audio Visual Aids Director ID - tech Lab Interpretation (test code = 37724-2) [facility] Culture 2023-03-30 08:43:51* Test Item Value Reference Range Interpretation Comme nts Color, UA (test code = 5778-6) Yellow Clarity, UA (test code = 5767-9) Clear Specific Ridgely, UA (test code = 5811-5) 1.033 1.001-1.035 pH, UA (test code = 5803-2) 6.0 5.0-8.0 Protein, UA (test code = 88909-0) 30 mg/dL Negative A Glucose, UA (test code = 365) Negative Negative Ketones, UA (test code = 2514-8) Negative Negative Bilirubin, UA (test code = 22217-7) Negative Negative Blood, UA (test code = 52096-0) Small Negative A Nitrite, UA (test code = 5802-4) Negative Negative Leukocytes, UA (test code = 5799-2) Negative Negative Urobilinogen, UA (test code = 18975-3) 0.2 0.2-1.0 RBC, UA (test code = 41913-7) 51 See_Comment [Automated message] The system which [...] Occasional Squam Epithel, UA (test code = 86087-6) See_Comment [Automated message] The system which generated this result transmitted reference range: /HPF. The reference range was not used to interpret this result as normal/abnormal. Specimen Source (test code = 2795) LYNDSAY (test code = LYNDSAY) Audio Visual Aids Director ID - [auto]Audio Visual Aids Director ID - tech Lab Interpretation (test code = 44937-6) [facility] Ref[facility] Culture 2023-03-30 08:43:51* Test Item Value Reference Range Interpretation Comme nts Color, UA (test code = 5778-6) Yellow Clarity, UA (test code = 5767-9) Clear Specific Ridgely, UA (test code = 5811-5) 1.033 1.001-1.035 pH, UA (test code = 5803-2) 6.0 5.0-8.0 Protein, UA (test code = 43448-1) 30 mg/dL Negative A Glucose, UA (test code = 365) Negative Negative Ketones, UA (test code = 2514-8) Negative Negative Bilirubin, UA (test code = 47041-6) Negative Negative Blood, UA (test code = 43566-3) Small Negative A Nitrite, UA (test code = 5802-4) Negative Negative Leukocytes, UA (test code = 5799-2) Negative Negative Urobilinogen, UA (test code = 47692-8) 0.2 0.2-1.0 RBC, UA (test code = 21809-1) 51 See_Comment [Automated message] The system which [...] Occasional Squam Epithel, UA (test code = 51795-6) See_Comment [Automated message] The system which generated this result transmitted reference range: /HPF. The reference range was not used to interpret this result as normal/abnormal. Specimen Source (test code = 2795) LYNDSAY (test code = LYNDSAY) Audio Visual Aids Director ID - [auto]Audio Visual Aids Director ID - tech Lab Interpretation (test code = 58395-4) [facility] 2023-[facility]-30 08:43:51* Test Item Value Reference Range Interpretation Comme nts Color, UA (test code = 5778-6) Yellow Clarity, UA (test code = 5767-9) Clear Specific Ridgely, UA (test code = 5811-5) 1.033 1.001-1.035 pH, UA (test code = 5803-2) 6.0 5.0-8.0 Protein, UA (test code = 70467-7) 30 mg/dL Negative A Glucose, UA (test code = 365) Negative Negative Ketones, UA (test code = 2514-8) Negative Negative Bilirubin, UA (test code = 91769-8) Negative Negative Blood, UA (test code = 63723-3) Small Negative A Nitrite, UA (test code = 5802-4) Negative Negative Leukocytes, UA (test code = 5799-2) Negative Negative Urobilinogen, UA (test code = 46120-3) 0.2 0.2-1.0 RBC, UA (test code = 13734-0) 51 See_Comment [Automated message] The system which [...] Occasional Squam Epithel, UA (test code = 69731-6) See_Comment [Automated message] The system which generated this result transmitted reference range: /HPF. The reference range was not used to interpret this result as normal/abnormal. Specimen Source (test code = 2795) LYNDSAY (test code = LYNDSAY) Audio Visual Aids Director ID - [auto]Audio Visual Aids Director ID - tech Lab Interpretation (test code = 24287-5) [facility]lex [facility] Culture 2023-03-30 08:43:51* Test Item Value Reference Range Interpretation Comme nts Color, UA (test code = 5778-6) Yellow Clarity, UA (test code = 5767-9) Clear Specific Ridgely, UA (test code = 5811-5) 1.033 1.001-1.035 pH, UA (test code = 5803-2) 6.0 5.0-8.0 Protein, UA (test code = 51307-9) 30 mg/dL Negative A Glucose, UA (test code = 365) Negative Negative Ketones, UA (test code = 2514-8) Negative Negative Bilirubin, UA (test code = 33872-9) Negative Negative Blood, UA (test code = 78964-5) Small Negative A Nitrite, UA (test code = 5802-4) Negative Negative Leukocytes, UA (test code = 5799-2) Negative Negative Urobilinogen, UA (test code = 86966-2) 0.2 0.2-1.0 RBC, UA (test code = 52976-1) 51 See_Comment [Automated message] The system which [...] Occasional Squam Epithel, UA (test code = 09589-8) See_Comment [Automated message] The system which generated this result transmitted reference range: /HPF. The reference range was not used to interpret this result as normal/abnormal. Specimen Source (test code = 2795) LYNDSAY (test code = LYNDSAY) Audio Visual Aids Director ID - [auto]Audio Visual Aids Director ID - tech Lab Interpretation (test code = 95707-8) [facility] 2023-[facility]-30 08:43:51* Test Item Value Reference Range Interpretation Comme nts Color, UA (test code = 5778-6) Yellow Clarity, UA (test code = 5767-9) Clear Specific Ridgely, UA (test code = 5811-5) 1.033 1.001-1.035 pH, UA (test code = 5803-2) 6.0 5.0-8.0 Protein, UA (test code = 47226-7) 30 mg/dL Negative A Glucose, UA (test code = 365) Negative Negative Ketones, UA (test code = 2514-8) Negative Negative Bilirubin, UA (test code = 74971-1) Negative Negative Blood, UA (test code = 84788-9) Small Negative A Nitrite, UA (test code = 5802-4) Negative Negative Leukocytes, UA (test code = 5799-2) Negative Negative Urobilinogen, UA (test code = 21415-1) 0.2 0.2-1.0 RBC, UA (test code = 92094-2) 51 See_Comment [Automated message] The system which [...] Occasional Squam Epithel, UA (test code = 06742-0) See_Comment [Automated message] The system which generated this result transmitted reference range: /HPF. The reference range was not used to interpret this result as normal/abnormal. Specimen Source (test code = 2795) LYNDSAY (test code = LYNDSAY) Audio Visual Aids Director ID - [auto]Audio Visual Aids Director ID - tech Lab Interpretation (test code = 84303-3) [facility] 2023-03-30 08:43:51* Test Item Value Reference Range Interpretation Comme nts Color, UA (test code = 5778-6) Yellow Clarity, UA (test code = 5767-9) Clear Specific Ridgely, UA (test code = 5811-5) 1.033 1.001-1.035 pH, UA (test code = 5803-2) 6.0 5.0-8.0 Protein, UA (test code = 42511-9) 30 mg/dL Negative A Glucose, UA (test code = 365) Negative Negative Ketones, UA (test code = 2514-8) Negative Negative Bilirubin, UA (test code = 05575-7) Negative Negative Blood, UA (test code = 12621-5) Small Negative A Nitrite, UA (test code = 5802-4) Negative Negative Leukocytes, UA (test code = 5799-2) Negative Negative Urobilinogen, UA (test code = 48542-7) 0.2 0.2-1.0 RBC, UA (test code = 98796-2) 51 See_Comment [Automated message] The system which [...] Occasional Squam Epithel, UA (test code = 44630-7) See_Comment [Automated message] The system which generated this result transmitted reference range: /HPF. The reference range was not used to interpret this result as normal/abnormal. Specimen Source (test code = 2795) LYNDSAY (test code = LYNDSAY) Audio Visual Aids Director ID - [auto]Audio Visual Aids Director ID - tech Lab Interpretation (test code = 02011-4) [facility] Reflex to Culture 2023-03-30 08:43:51* Test Item Value Reference Range Interpretation Comme nts Color, UA (test code = 5778-6) Yellow Clarity, UA (test code = 5767-9) Clear Specific Ridgely, UA (test code = 5811-5) 1.033 1.001-1.035 pH, UA (test code = 5803-2) 6.0 5.0-8.0 Protein, UA (test code = 93612-1) 30 mg/dL Negative A Glucose, UA (test code = 365) Negative Negative Ketones, UA (test code = 2514-8) Negative Negative Bilirubin, UA (test code = 09457-9) Negative Negative Blood, UA (test code = 21013-9) Small Negative A Nitrite, UA (test code = 5802-4) Negative Negative Leukocytes, UA (test code = 5799-2) Negative Negative Urobilinogen, UA (test code = 48670-1) 0.2 0.2-1.0 RBC, UA (test code = 65608-4) 51 See_Comment [Automated message] The system which [...] Occasional Squam Epithel, UA (test code = 86355-1) See_Comment [Automated message] The system which generated this result transmitted reference range: /HPF. The reference range was not used to interpret this result as normal/abnormal. Specimen Source (test code = 2795) LYNDSAY (test code = LYNDSAY) Audio Visual Aids Director ID - [auto]Audio Visual Aids Director ID - tech Lab Interpretation (test code = 47025-5) [facility] Reflex to Culture 2023-03-30 08:43:51* Test Item Value Reference Range Interpretation Comme nts Color, UA (test code = 5778-6) Yellow Clarity, UA (test code = 5767-9) Clear Specific Ridgely, UA (test code = 5811-5) 1.033 1.001-1.035 pH, UA (test code = 5803-2) 6.0 5.0-8.0 Protein, UA (test code = 40392-0) 30 mg/dL Negative A Glucose, UA (test code = 365) Negative Negative Ketones, UA (test code = 2514-8) Negative Negative Bilirubin, UA (test code = 55517-0) Negative Negative Blood, UA (test code = 32467-4) Small Negative A Nitrite, UA (test code = 5802-4) Negative Negative Leukocytes, UA (test code = 5799-2) Negative Negative Urobilinogen, UA (test code = 74438-3) 0.2 0.2-1.0 RBC, UA (test code = 33668-2) 51 See_Comment [Automated message] The system which [...] Occasional Squam Epithel, UA (test code = 53587-5) See_Comment [Automated message] The system which generated this result transmitted reference range: /HPF. The reference range was not used to interpret this result as normal/abnormal. Specimen Source (test code = 2795) LYNDSAY (test code = LYNDSAY) Audio Visual Aids Director ID - [auto]Audio Visual Aids Director ID - tech Lab Interpretation (test code = 87040-0) [facility] Reflex to Culture 2023-03-30 08:43:51* Test Item Value Reference Range Interpretation Comme nts Color, UA (test code = 5778-6) Yellow Clarity, UA (test code = 5767-9) Clear Specific Ridgely, UA (test code = 5811-5) 1.033 1.001-1.035 pH, UA (test code = 5803-2) 6.0 5.0-8.0 Protein, UA (test code = 70683-5) 30 mg/dL Negative A Glucose, UA (test code = 365) Negative Negative Ketones, UA (test code = 2514-8) Negative Negative Bilirubin, UA (test code = 60969-4) Negative Negative Blood, UA (test code = 55365-1) Small Negative A Nitrite, UA (test code = 5802-4) Negative Negative Leukocytes, UA (test code = 5799-2) Negative Negative Urobilinogen, UA (test code = 71121-0) 0.2 0.2-1.0 RBC, UA (test code = 79422-3) 51 See_Comment [Automated message] The system which [...] Occasional Squam Epithel, UA (test code = 11718-7) See_Comment [Automated message] The system which generated this result transmitted reference range: /HPF. The reference range was not used to interpret this result as normal/abnormal. Specimen Source (test code = 2795) LYNDSAY (test code = LYNDSAY) Audio Visual Aids Director ID - [auto]Audio Visual Aids Director ID - tech Lab Interpretation (test code = 02522-7) [facility]normal [facility] Reflex to Culture 2023-03-30 08:43:51* Test Item Value Reference Range Interpretation Comme nts Color, UA (test code = 5778-6) Yellow Clarity, UA (test code = 5767-9) Clear Specific Ridgely, UA (test code = 5811-5) 1.033 1.001-1.035 pH, UA (test code = 5803-2) 6.0 5.0-8.0 Protein, UA (test code = 73690-4) 30 mg/dL Negative A Glucose, UA (test code = 365) Negative Negative Ketones, UA (test code = 2514-8) Negative Negative Bilirubin, UA (test code = 64774-2) Negative Negative Blood, UA (test code = 28876-6) Small Negative A Nitrite, UA (test code = 5802-4) Negative Negative Leukocytes, UA (test code = 5799-2) Negative Negative Urobilinogen, UA (test code = 42284-2) 0.2 0.2-1.0 RBC, UA (test code = 33826-8) 51 See_Comment [Automated message] The system which [...] Occasional Squam Epithel, UA (test code = 33954-3) See_Comment [Automated message] The system which generated this result transmitted reference range: /HPF. The reference range was not used to interpret this result as normal/abnormal. Specimen Source (test code = 2795) LYNDSAY (test code = LYNDSAY) Audio Visual Aids Director ID - [auto]Audio Visual Aids Director ID - tech Lab Interpretation (test code = 57395-3) [facility] Reflex [facility] Culture 2023-03-30 08:43:51* Test Item Value Reference Range Interpretation Comme nts Color, UA (test code = 5778-6) Yellow Clarity, UA (test code = 5767-9) Clear Specific Ridgely, UA (test code = 5811-5) 1.033 1.001-1.035 pH, UA (test code = 5803-2) 6.0 5.0-8.0 Protein, UA (test code = 51605-4) 30 mg/dL Negative A Glucose, UA (test code = 365) Negative Negative Ketones, UA (test code = 2514-8) Negative Negative Bilirubin, UA (test code = 83186-0) Negative Negative Blood, UA (test code = 79339-9) Small Negative A Nitrite, UA (test code = 5802-4) Negative Negative Leukocytes, UA (test code = 5799-2) Negative Negative Urobilinogen, UA (test code = 47942-4) 0.2 0.2-1.0 RBC, UA (test code = 28867-8) 51 See_Comment [Automated message] The system which [...] Occasional Squam Epithel, UA (test code = 32326-4) See_Comment [Automated message] The system which generated this result transmitted reference range: /HPF. The reference range was not used to interpret this result as normal/abnormal. Specimen Source (test code = 2795) LYNDSAY (test code = LYNDSAY) Audio Visual Aids Director ID - [auto]Audio Visual Aids Director ID - tech Lab Interpretation (test code = 92707-0) [facility]normal [facility] Culture 2023-03-30 08:43:51* Test Item Value Reference Range Interpretation Comme nts Color, UA (test code = 5778-6) Yellow Clarity, UA (test code = 5767-9) Clear Specific Ridgely, UA (test code = 5811-5) 1.033 1.001-1.035 pH, UA (test code = 5803-2) 6.0 5.0-8.0 Protein, UA (test code = 30532-6) 30 mg/dL Negative A Glucose, UA (test code = 365) Negative Negative Ketones, UA (test code = 2514-8) Negative Negative Bilirubin, UA (test code = 71693-5) Negative Negative Blood, UA (test code = 29886-1) Small Negative A Nitrite, UA (test code = 5802-4) Negative Negative Leukocytes, UA (test code = 5799-2) Negative Negative Urobilinogen, UA (test code = 20369-9) 0.2 0.2-1.0 RBC, UA (test code = 17914-7) 51 See_Comment [Automated message] The system which [...] Occasional Squam Epithel, UA (test code = 46010-4) See_Comment [Automated message] The system which generated this result transmitted reference range: /HPF. The reference range was not used to interpret this result as normal/abnormal. Specimen Source (test code = 2795) LYNDSAY (test code = LYNDSAY) Audio Visual Aids Director ID - [auto]Audio Visual Aids Director ID - tech Lab Interpretation (test code = 36435-4) [facility] Reflex [facility] Culture 2023-03-30 08:43:51* Test Item Value Reference Range Interpretation Comme nts Color, UA (test code = 5778-6) Yellow Clarity, UA (test code = 5767-9) Clear Specific Ridgely, UA (test code = 5811-5) 1.033 1.001-1.035 pH, UA (test code = 5803-2) 6.0 5.0-8.0 Protein, UA (test code = 63673-5) 30 mg/dL Negative A Glucose, UA (test code = 365) Negative Negative Ketones, UA (test code = 2514-8) Negative Negative Bilirubin, UA (test code = 64368-5) Negative Negative Blood, UA (test code = 13250-3) Small Negative A Nitrite, UA (test code = 5802-4) Negative Negative Leukocytes, UA (test code = 5799-2) Negative Negative Urobilinogen, UA (test code = 09942-5) 0.2 0.2-1.0 RBC, UA (test code = 29781-9) 51 See_Comment [Automated message] The system which [...] Occasional Squam Epithel, UA (test code = 32130-7) See_Comment [Automated message] The system which generated this result transmitted reference range: /HPF. The reference range was not used to interpret this result as normal/abnormal. Specimen Source (test code = 2795) LYNDSAY (test code = LYNDSAY) Audio Visual Aids Director ID - [auto]Audio Visual Aids Director ID - tech Lab Interpretation (test code = 38964-2) [facility]normal [facility] Reflex to Culture 2023-03-30 08:43:51* Test Item Value Reference Range Interpretation Comme nts Color, UA (test code = 5778-6) Yellow Clarity, UA (test code = 5767-9) Clear Specific Ridgely, UA (test code = 5811-5) 1.033 1.001-1.035 pH, UA (test code = 5803-2) 6.0 5.0-8.0 Protein, UA (test code = 41251-5) 30 mg/dL Negative A Glucose, UA (test code = 365) Negative Negative Ketones, UA (test code = 2514-8) Negative Negative Bilirubin, UA (test code = 91656-5) Negative Negative Blood, UA (test code = 42607-5) Small Negative A Nitrite, UA (test code = 5802-4) Negative Negative Leukocytes, UA (test code = 5799-2) Negative Negative Urobilinogen, UA (test code = 35637-1) 0.2 0.2-1.0 RBC, UA (test code = 65010-6) 51 See_Comment [Automated message] The system which [...] Occasional Squam Epithel, UA (test code = 41612-6) See_Comment [Automated message] The system which generated this result transmitted reference range: /HPF. The reference range was not used to interpret this result as normal/abnormal. Specimen Source (test code = 2795) LYNDSAY (test code = LYNDSAY) Audio Visual Aids Director ID - [auto]Audio Visual Aids Director ID - tech Lab Interpretation (test code = 76761-1) [facility] URINE [id number] 08:43:51 * Test Item Value Reference Range [...] < /HPF SOURCE(BEAKER) (test code = 2795) Audio Visual Aids Director ID - [auto]Audio Visual Aids Director ID - techCOMPREHENSIVE METABOLIC VSJKW9412-26-97 04:37:29* Test Item Value Reference Range Interpretation [...] GFR is not applicable for dialysis patients Audio Visual Aids Director ID - MATT BPT/[id number] 04:30:17* Test Item Value Reference Range Interpretation Comme nts PROTIME (BEAKER) (test code = 759) 13.8 seconds 11.9-14.2 INR (BEAKER) (test code = 370) 1.13 See_Comment [Automated [employer]] The system which generated this result transmitted [...] code = 413) 0 /100 WBC 0-0 BIG-[id number] 00:00:00Ordered by an unspecified provider.[facility]-FJBQBDY9878-87-62 00:00:00Ordered by an unspecified provider. [facility]-MXYDJDG1156-30-82 00:00:00Ordered by an unspecified provider.[facility]MAGN[facility]IUM2023-[facility]-25 17:14:06* Test Item Value Reference Range Interpretation Comme nts MAGNESIUM (test code = 7198388585) 1.9 mg/dL 1.7-2.4 Lab Interpretation (test cod e = 97864-7) [facility] (57093)2022-12-11 15:16:25* Test Item Value Reference Range Interpretation Comme nts NA (test code = 2778888691) 139 mmol/L 135-145 K (test code = 6556337814) 3.5 mmol/L 3.5-5.0 CL (test code = 1437285368) 107 mmol/L 98-108 CO2 TOTAL (test code = 1820861496) 24 mmol/L 23-31 AGAP (test code = 2449742868) 8 2-16 BUN (test code = 3049784926) 9 mg/dL 7-23 GLUCOSE (test code = 3705913555) 129 mg/dL 70-110 H CREATININE (test code = 5469842979) 0.68 mg/dL 0.50-1.04 TOTAL BILI (test code = 7699953145) 0.5 mg/dL 0.1-1.1 CALCIUM (test code = 9540471779) 8.9 mg/dL 8.6-10.6 T PROTEIN (test code = 8075205176) 6.3 g/dL 6.3-8.2 ALBUMIN (test code = 8425440106) 3.8 g/dL 3.5-5.0 ALK PHOS (test code = 4447934415) 87 U/L 34-122 ALTv (test code = 1742-6) 24 U/L 5-35 AST(SGOT) (test code = 4821740152) 21 U/L 13-40 eGFR (test code = 4646001828) 91.6 mL/min/1.73m2 LYNDSAY (test code = LYNDSAY) [...] imaging tests). Lab Interpretation (test code = 33445-7) [facility] CenterJ[facility] [id number] 15:10:45* Test Item Value Reference Range Interpretation Comme nts TROPONIN I (test code = 6516787240) 0.015 ng/mL <=0.034 LYNDSAY (test code = [...] of biotin. Lab Interpretation (test code = 56486-0) [facility]N-[facility]AL RMO-[id number] 15:07:48* Test Item Value Reference Range Interpretation Comme nts NT-proBNP (test code = 0300324799) 1460 pg/mL <=125 H LYNDSAY (test code = LYNDSAY) Biotin has been reported to cause a negative bias, interpret results relative to patient's use of biotin. Lab Interpretation (test code = 17556-2) [facility] CenterD-HYGWR9995-65-27 14:45:24* Test Item Value Reference Range Interpretation Comments D-DIMER (test code = 7873075416) 0.99 See_Comment H [Automated message] The system [...] a diagnosis. Lab Interpretation (test code = 93250-4) Abnormal [facility] WITH [id number] 14:14:48* Test Item Value Reference Range Interpretation [...] g/dL 31.6-35.1 L RDW-SD (test code = 50236-7) 47.8 fL 39.0-49.9 RDW-CV (test code = 788-0) 16.9 % 12.0-15.5 H PLT (test code = 777-3) 507 See_Comment H [Automated messa ge] The system which generated this result transmitted reference range: 166 - 358 10*3/?L. The reference range was not used to interpret this result as normal/abnormal. MPV (test code = 73585-1) 8.2 fL 9.5-12.9 L NRBC/100 WBC (test code = 2585684035) 0.0 See_Comment [Automated [employer]] The system which generated this result transmitted reference range: 0.0 - 10.0 /100 WBCs. The reference range was not used to interpret this result as normal/abnormal. NRBC x10^3 (test code = 7252065611) See_Comment [Automated messa ge] The system which generated this result transmitted reference range: 10*3/?L. The reference range was not used to interpret this result as normal/abnormal. GRAN MAT (NEUT) % (test code = 770-8) 64.5 % IMM GRAN % (test code = 0934304301) 0.30 % LYMPH % (test code = 736-9) 25.6 % MONO % (test code = 5905-5) 7.5 % EOS % (test code = 713-8) 1.0 % BASO % (test code = 706-2) 1.1 % GRAN MAT x10^3(ANC) (test code = 0019258895) 5.07 10*3/uL 1.88-7.09 IMM GRAN x10^3 (test code = 0658287319) 0.00-0.06 LYMPH x10^3 (test code = 731-0) 2.01 10*3/uL 1.32-3.29 MONO x10^3 (test code = 742-7) 0.59 10*3/uL 0.33-0.92 EOS x10^3 (test code = 711-2) 0.08 10*3/uL 0.03-0.39 BASO x10^3 (test code = 704-7) 0.09 10*3/uL 0.01-0.07 H Lab Interpretation (test code = 67909-7) [facility]RPR[facility] 13:17:22* Test Item Value Reference Range Interpretation Comme [facility] RPR SCREEN ([place]) (test co de = 420) Nonreactive Nonreactive HEMOGLOBIN [id number] 10:39:49* Test Item Value Reference Range Interpretation Comme [facility] HEMOGLOBIN A1C ELECTROPHORESIS (PlacedAKER) (test code = 3811) 5.8 % See_Comment [...] 5.7- 6.4% indicates increased risk for diabetes (prediabetes)."Audio Visual Aids Director ID - ADM VITAMIN [id number] 22:48:27* Test Item Value Reference Range Interpretation Comme nts VITAMIN B12 (BEAKER) (test c ode = 774) 227 pg/mL 213-816 Audio Visual Aids Director ID - MARCOTSH/FREE T4 IF [id number] 22:08:28* Test Item Value Reference Range Interpretation Comme nts THYROID STIMULATING HORMONE (BEAKER) (test code = 772) 3.309 uIU/mL 0.350-4.940 Audio Visual Aids Director ID - JSHIV-1 ANTIGEN WITH HIV-1/2 SDHWCZQN9557-21-15 22:08:28* Test Item Value Reference Range Interpretation Comme nts HIV-1 ANTIGEN WITH HIV 1\\T\\2 ANTIBODY (2) (BEAKER) (test code = 2586) Nonreactive Nonreactive Audio Visual Aids Director ID - JSC-REACTIVE [id number] 21:49:44* Test Item Value Reference Range Interpretation Comme nts C-REACTIVE PROTEIN (BEAKER) (test code = 676) 0.35 mg/dL 0.00-0.50 Audio Visual Aids Director ID - JSCOMPREHENSIVE METABOLIC [id number] 21:49:43* Test Item Value Reference Range Interpretation [...] GFR is not applicable for dialysis patients Audio Visual Aids Director ID - JSLIPID [id number] 21:49:43* Test Item Value Reference Range Interpretation [...] Borderline 130-159 High 160-189 Very High >=190 Audio Visual Aids Director ID - JSCBC W/PLT COUNT & AUTO ATYGRLYCMHXA6898-36-67 21:34:03* Test Item Value Reference Range Interpretation [...] Interpretation Comme nts Height (test code = 4450227187) in Weight (test code = 6505038261) lbs Systolic BP (test code = 6021847193) mmHg Diastolic BP (test code = 7293148829) mmHg Heart Rate (test code = 8581519319) bpm BSA (test code = 7884104011) 2.00 m2 Ao root diam (test code = 7163617811) 3.20 cm Aortic root (test code = 0878599906) 3.2 cm Ao root annulus (test code = 4993304819) 3.2 cm LVOT diameter (test code = 3572685258) 1.99 cm LVOT area (test code = 4101109150) 3.10 cm2 LVIDD (test code = 5156390277) 5.10 cm Left Ventricular End Diastolic Volume by Teichholz Method (test code = 6276193) 123.0 mL IVS (test code = 4236937342) 1.34 cm Interventricular Septum Diastolic Thickness by 2D (test code = 1047776) 1.34 cm LVPWD (test code = 6108095759) 1.34 cm PW (test code = 8110679318) 1.34 cm 0.6-1.1 EF(Teich) (test code = 5168635434) 41.80 % LVIDS (test code = 5150551387) 4.00 cm Left Ventricular End Systolic Volume by Teichholz Method (test code = 4059318) 71.5 mL FS (test code = 4431481722) 21 % EF - 2D (test code = 67637818) 41.80 % LA size (test code = 7425699416) 4.6 cm Pulmonic Regurgitant End Max Velocity (test code = 4110061795) 119.4 cm/s LAV(MOD-sp4) (test code = 7842143459) 95.00 mL E wave decelartion time (test code = 1942370547) 0.15 s MV stenosis pressure 1/2 time (test code = 1291616698) 45.6 ms MV Peak A Evette (test code = 9930795048) 123.8 cm/s MV Peak E Evette (test code = 1821742179) 109.7 cm/s E/A ratio (test code = 6493697182) ratio MR max PG (test code = 5955462453) 87.20 mm[Hg] MR max evette (test code = 3612256297) 466.90 cm/s Mr max evette (test code = 7961845598) 466.9 m/s MV Prop V (test code = 5206442815) 51.00 cm/s MV E/e' septal (test code = 6523011399) 8.1 cm/s Tapse (test code = 9346561762) 2.21 cm LVOT stroke volume (test code = 8348588305) 49.80 cm3 LVOT peak evette (test code = 2993131452) 89.1 cm/s LVOT mn grad (test code = 0597119620) mmHg AV LVOT peak gradient (test code = 1627421006) mmHg LVOT peak VTI (test code = 1203369695) 16.0 cm LV V1 mean (test code = 3294037185) 64.30 cm/s Aortic valve mean velocity (test code = 6201019874) 133.8 cm/s Ao peak evette (test code = 7547917117) 175.3 cm/s Ao VTI (test code = 8566119240) 32.2 cm AV area by cont VTI (test code = 5953637626) 1.6 cm2 AV area peak evette (test code = 4774819092) 1.6 cm2 Ao max PG (test code = 5567497887) 12.30 mm[Hg] AV peak gradient (test code = 6847823410) mmHg AV valve area (test code = 9713206124) 1.55 cm2 AV mean gradient (test code = 9023546380) mmHg AV regurgitation pressure 1/2 time (test code = 5500487064) 358.5 ms AI dec slope (test code = 4438185723) 364.20 cm/s2 AI max evette (test code = 3345254791) 445.80 cm/s AI max PG (test code = 1964801413) 79.50 mm[Hg] Radiology Study observation (narrative) (test code = 55840-7) LYNDSAY (test code = LYNDSAY) ?Left?Ventricle: Left [...] mL of Lumason ultrasound enhancing agent used. [facility] 10:43:32* Test Item Value Reference Range Interpretation [facility] POCT GLU (test code = 7745570809) 148 mg/dL 70-110 H Lab Interpretation (test cod e = 35482-2) Abnormal [facility] CenterACTIVATED PARTIAL THRMPLAS [id number] 18:39:45* Test Item Value Reference Range [facility]ation [facility] Patient (test code = 3173-2) See_Comment [Automated message] The system which generated this result transmitted reference range: 23 - 38 Seconds. The reference range was not used to interpret this result as normal/abnormal. LYNDSAY (test code = LYNDSAY) The [facility] patient population mean normal value for aPTT is 30 seconds. Lab Interpretation (test code = 56122-4) Normal [facility] CenterPROTHROMBIN TIME / [id number] 18:37:42* Test Item Value Reference Range Interpretation [facility] PROTIME PATIENT (test code = 5964-2) See_Comment [Automated [employer] ge] The system which generated this result transmitted reference range: 12.0 - 14.7 Seconds. The reference range was not used to interpret this result as normal/abnormal. INR (test code = 6301-6) Normal INR <1.1; Warfarin Therapeutic range 2.0 to 3.0 or 2.5 to 3.5, depending upon the indications. Lab Interpretation (test code = 66310-3) Normal [facility] CenterTROPONIN [id number] 18:32:01* Test Item Value Reference Range Interpretation Comments TROPONIN I (test code = 2479015031) 0.019 ng/mL See_Comment [Automated message] The system [...] of biotin. Lab Interpretation (test code = 13693-6) Normal [facility] CenterN-TERMINAL [id number] 18:29:01* Test Item Value Reference Range Interpretation Comme nts NT-proBNP (test code = 0940244786) 2770 pg/mL See_Comment H [Automated message] The system which generated this result transmitted reference range: <=125. The reference range was not used to interpret this result as normal/abnormal. LYNDSAY (test code = LYNDSAY) Biotin has been reported to cause a negative bias, interpret results relative to patient's use of biotin. Lab Interpretation (test code = 65472-2) Abnormal [facility] CenterCOMP. METABOLIC PANEL (00632)2022-07-31 18:21:42* Test Item Value Reference Range Interpretation Comme nts NA (test code = 6866690055) 136 mmol/L 135-145 K (test code = 0369726232) 4.6 mmol/L 3.5-5.0 CL (test code = 8672951963) 104 mmol/L 98-108 CO2 TOTAL (test code = 1246206890) 26 mmol/L 23-31 AGAP (test code = 4643669287) 2-16 BUN (test code = 0464824533) 9 mg/dL 7-23 GLUCOSE (test code = 4117368855) 97 mg/dL 70-110 CREATININE (test code = 2609386819) 0.64 mg/dL 0.50-1.04 TOTAL BILI (test code = 1507189390) 0.5 mg/dL 0.1-1.1 CALCIUM (test code = 9314831588) 8.2 mg/dL 8.6-10.6 L T PROTEIN (test code = 1724809656) 6.5 g/dL 6.3-8.2 ALBUMIN (test code = 7938098542) 3.9 g/dL 3.5-5.0 ALK PHOS (test code = 4527946582) 93 U/L 34-122 ALTv (test code = 1742-6) 18 U/L 5-35 AST(SGOT) (test code = 7446100428) 19 U/L 13-40 eGFR (test code = 1802709071) mL/min/1.73m2 LYNDSAY (test code = LYNDSAY) Association [...] imaging tests). Lab Interpretation (test code = 77673-4) [facility]normal [facility] CenterLIPASE2023-01-12 18:21:01* Test Item Value Reference Range Interpretation Comme nts LIPASE (test code = 9524732640) 54 U/L 0-220 Lab Interpretation (test cod e = 02776-6) Normal [facility] CenterCBC WITH [id number] 18:07:00* Test Item Value Reference Range Interpretation Comme nts WBC (test code = 6690-2) See_Comment [Automated [employer] ge] The system which generated this result [...] g/dL 31.6-35.1 L RDW-SD (test code = 23583-7) 53.1 fL 39.0-49.9 H RDW-CV (test code = 788-0) 17.0 % 12.0-15.5 H PLT (test code = 777-3) See_Comment H [Automated messa ge] The system which generated this result transmitted reference range: 166 - 358 10*3/?L. The reference range was not used to interpret this result as normal/abnormal. MPV (test code = 74143-1) 8.2 fL 9.5-12.9 L NRBC/100 WBC (test code = 3033426980) See_Comment [Automated me ssage] The system which generated this result transmitted reference range: 0.0 - 10.0 /100 WBCs. The reference range was not used to interpret this result as normal/abnormal. NRBC x10^3 (test code = 5552757449) See_Comment [Automated messa ge] The system which generated this result transmitted reference range: 10*3/?L. The reference range was not used to interpret this result as normal/abnormal. GRAN MAT (NEUT) % (test code = 770-8) 64.0 % IMM GRAN % (test code = 1844683659) 0.40 % LYMPH % (test code = 736-9) 27.3 % MONO % (test code = 5905-5) 6.5 % EOS % (test code = 713-8) 1.1 % BASO % (test code = 706-2) 0.7 % GRAN MAT x10^3(ANC) (test code = 6164096906) 5.46 10*3/uL 1.88-7.09 IMM GRAN x10^3 (test code = 0480702865) 0.03 10*3/uL 0.00-0.06 LYMPH x10^3 (test code = 731-0) 2.32 10*3/uL 1.32-3.29 MONO x10^3 (test code = 742-7) 0.55 10*3/uL 0.33-0.92 EOS x10^3 (test code = 711-2) 0.09 10*3/uL 0.03-0.39 BASO x10^3 (test code = 704-7) 0.06 10*3/uL 0.01-0.07 Lab Interpretation (test code = 30900-3) Abnormal [facility] METABOLIC PANEL (NA, K, CL, CO2, GLUCOSE, BUN, CREATININE, CA)2022-05-08 06:37:01* Test Item Value Reference Range Interpretation Comme nts NA (test code = 1460104431) 137 mmol/L 135-145 K (test code = 2811990496) 3.8 mmol/L 3.5-5 CL (test code = 7623660574) 103 mmol/L 98-108 CO2 TOTAL (test code = 2977113155) 24 mmol/L 23-31 AGAP (test code = 0797395636) 2-16 BUN (test code = 9591927904) 13 mg/dL 7-23 GLUCOSE (test code = 3085363407) 90 mg/dL 70-110 CREATININE (test code = 7550245614) 0.69 mg/dL 0.5-1.04 CALCIUM (test code = 9520205468) 8.5 mg/dL 8.6-10.6 L eGFR (test code = 8497844812) mL/min/1.73m2 LYNDSAY (test code = LYNDSAY) Association [...] imaging tests). Lab Interpretation (test code = 78714-1) [facility] 06:37:01* Test Item Value Reference Range Interpretation Comme nts MAGNESIUM (test code = 1566279902) 2.1 mg/dL 1.7-2.4 Lab Interpretation (test cod e = 20779-9) Normal [facility] CenterPHOSPHORUS2022-10-20 06:37:01* Test Item Value Reference Range Interpretation Comme nts PHOSPHORUS (test code = 2133769861) 4.7 mg/dL 2.5-5 Lab Interpretation (test cod e = 92941-9) Normal [facility] CenterCBC WITH [id number] 06:11:54* Test Item Value Reference Range Interpretation [...] 32.4 g/dL 31.6-35.1 RDW-SD (test code = 62242-4) 51.0 fL 39-49.9 H RDW-CV (test code = 788-0) 16.5 % 12-15.5 H PLT (test code = 777-3) See_Comment H [Automated messa ge] The system which generated this result transmitted reference range: 166 - 358 10*3/?L. The reference range was not used to interpret this result as normal/abnormal. MPV (test code = 07211-3) 8.3 fL 9.5-12.9 L NRBC/100 WBC (test code = 7093119617) See_Comment [Automated me ssage] The system which generated this result transmitted reference range: 0.0 - 10.0 /100 WBCs. The reference range was not used to interpret this result as normal/abnormal. NRBC x10^3 (test code = 6596856807) See_Comment [Automated messa ge] The system which generated this result transmitted reference range: 10*3/?L. The reference range was not used to interpret this result as normal/abnormal. GRAN MAT (NEUT) % (test code = 770-8) 64.5 % IMM GRAN % (test code = 3385602411) 0.50 % LYMPH % (test code = 736-9) 27.1 % MONO % (test code = 5905-5) 6.6 % EOS % (test code = 713-8) 0.6 % BASO % (test code = 706-2) 0.7 % GRAN MAT x10^3(ANC) (test code = 3173431735) 5.28 10*3/uL 1.88-7.09 IMM GRAN x10^3 (test code = 2756887442) 0.04 10*3/uL 0-0.06 LYMPH x10^3 (test code = 731-0) 2.22 10*3/uL 1.32-3.29 MONO x10^3 (test code = 742-7) 0.54 10*3/uL 0.33-0.92 EOS x10^3 (test code = 711-2) 0.05 10*3/uL 0.03-0.39 BASO x10^3 (test code = 704-7) 0.06 10*3/uL 0.01-0.07 Lab Interpretation (test code = 83558-6) Abnormal [facility]PO[facility])2022-05-07 01:18:10* Test Item Value Reference Range Interpretation Comme nts POCT GLU (test code = 2269631181) 120 mg/dL 70-110 H Lab Interpretation (test cod e = 07182-1) Abnormal [facility] CenterType and Screen - ONCE [id number] 05:46:35* Test Item Value Reference Range Interpretation Comme nts ABO & RH (test code = 20) O POSITIVE Performed at [facility] Blood [place] [id number] Free: [phone] No. [id number] IAT (test code = 1185) Negative Performed at [facility] Laboratory Services [facility] Blood [address] Free: [phone] No. [id number] [facility] [place] [facility]OLIC [facility] (NA, K, CL, CO2, GLUCOSE, BUN, CREATININE, CA)2022-05-05 08:22:57* Test Item Value Reference Range Interpretation Comme nts NA (test code = 0096929438) 136 mmol/L 135-145 K (test code = 0411972314) 4.9 mmol/L 3.5-5 CL (test code = 9701366336) 108 mmol/L 98-108 CO2 TOTAL (test code = 7275905340) 22 mmol/L 23-31 L AGAP (test code = 4409607246) 2-16 BUN (test code = 9934288032) 12 mg/dL 7-23 GLUCOSE (test code = 5211715622) 155 mg/dL 70-110 H CREATININE (test code = 0399369330) 0.63 mg/dL 0.5-1.04 CALCIUM (test code = 9488344574) 8.4 mg/dL 8.6-10.6 L eGFR (test code = 3987204773) mL/min/1.73m2 LYNDSAY (test code = LYNDSAY) Association [...] imaging tests). Lab Interpretation (test code = 62865-7) Abnormal [facility] CenterPROTHROMBIN TIME / [id number] 08:22:37* Test Item Value Reference Range Interpretation Comme [facility] PROTIME PATIENT (test code = 5964-2) See_Comment [Automated [employer]] The system which generated this result transmitted reference range: 10.1 - 12.6 Seconds. The reference range was not used to interpret this result as normal/abnormal. INR (test code = 6301-6) Normal INR <1.1; Warfarin Therapeutic range 2.0 to 3.0 or 2.5 to 3.5, depending upon the indications. Lab Interpretation (test code = 75525-3) Normal [facility] CenteraPTT2022-10-17 08:22:37* Test Item Value Reference Range Interpretation Comme [facility] APTT Patient (test code = 3173-2) See_Comment [Easiest Credit Card To Get Approved For] The system which generated this result transmitted reference range: 26 - 36 Seconds. The reference range was not used to interpret this result as normal/abnormal. Lab Interpretation (test code = 04890-1) Normal [facility] CenterFIBRINOGEN2022-10-17 08:22:37* Test Item Value Reference Range Interpretation Comme [facility] Fibrinogen (test code = 5857105805) 294 mg/dL 167-453 Lab Interpretation (test cod e = 84989-9) Normal [facility] CenterCBC WITH [id number] 08:15:01* Test Item Value Reference Range Interpretation Comme [facility] WBC (test code = 6690-2) See_Comment [Automated [employer]] The system which generated this result transmitted [...] g/dL 31.6-35.1 L RDW-SD (test code = 49384-2) 52.9 fL 39-49.9 H RDW-CV (test code = 788-0) 16.8 % 12-15.5 H PLT (test code = 777-3) See_Comment H [Automated messa ge] The system which generated this result transmitted reference range: 166 - 358 10*3/?L. The reference range was not used to interpret this result as normal/abnormal. MPV (test code = 70619-9) 8.3 fL 9.5-12.9 L NRBC/100 WBC (test code = 1618200937) See_Comment [Automated Page[employer] ssage] The system which generated this result transmitted reference range: 0.0 - 10.0 /100 WBCs. The reference range was not used to interpret this result as normal/abnormal. NRBC x10^3 (test code = 1266520738) See_Comment [Automated messa ge] The system which generated this result transmitted reference range: 10*3/?L. The reference range was not used to interpret this result as normal/abnormal. GRAN MAT (NEUT) % (test code = 770-8) 86.4 % IMM GRAN % (test code = 5416777785) 0.40 % LYMPH % (test code = 736-9) 11.7 % MONO % (test code = 5905-5) 1.1 % EOS % (test code = 713-8) 0.0 % BASO % (test code = 706-2) 0.4 % GRAN MAT x10^3(ANC) (test code = 1415714938) 6.36 10*3/uL 1.88-7.09 IMM GRAN x10^3 (test code = 5207482166) 0.03 10*3/uL 0-0.06 LYMPH x10^3 (test code = 731-0) 0.86 10*3/uL 1.32-3.29 L MONO x10^3 (test code = 742-7) 0.08 10*3/uL 0.33-0.92 L EOS x10^3 (test code = 711-2) 0.03-0.39 L BASO x10^3 (test code = 704-7) 0.03 10*3/uL 0.01-0.07 Lab Interpretation (test code = 48005-0) Abnormal [facility] CenterVITAMIN D, [id number] 20:14:03* Test Item Value Reference Range Interpretation Comme nts VIT D 25OH (test code = 33690-5) 22 ng/mL 25-80 L LYNDSAY (test code = LYNDSAY) Deficiency: <20 ng/mLInsufficiency: 20-24 ng/mLOptimal: 25-80 ng/mL Lab Interpretation (test code = 16068-1) Abnormal [facility] CenterBASI METABOLIC PANEL (NA, K, CL, CO2, GLUCOSE, BUN, CREATININE, CA)2022-04-15 11:27:57* Test Item Value Reference Range Interpretation Comme nts NA (test code = 5466594613) 138 mmol/L 135-145 K (test code = 7296881457) 3.9 mmol/L 3.5-5 CL (test code = 9692465448) 106 mmol/L 98-108 CO2 TOTAL (test code = 0043562020) 23 mmol/L 23-31 AGAP (test code = 7111201829) 2-16 BUN (test code = 0511237203) 10 mg/dL 7-23 GLUCOSE (test code = 7600621257) 91 mg/dL 70-110 CREATININE (test code = 9540836473) 0.65 mg/dL 0.5-1.04 CALCIUM (test code = 5354825338) 8.1 mg/dL 8.6-10.6 L eGFR (test code = 3446325901) mL/min/1.73m2 LYNDSAY (test code = LYNDSAY) Association [...] imaging tests). Lab Interpretation (test code = 99716-7) Abnormal [facility] CenterSTROKE Protocol - Transthoracic echo (TTE) 2022-04-14 22:07:33* Test Item Value Reference Range Interpretation Comme nts Height (test code = 6634281127) in Weight (test code = 0420183878) lbs Systolic BP (test code = 1565401102) mmHg Diastolic BP (test code = 1134536081) mmHg Heart Rate (test code = 8928559629) bpm BSA (test code = 3017902306) 1.94 m2 TASV (test code = 4157049971) 15.5 cm/s LVIDD (test code = 5215704150) 6.00 cm Left Ventricular End Diastolic Volume by Teichholz Method (test code = 1088213) 183.0 mL IVS (test code = 5542868984) 1.09 cm Interventricular Septum Diastolic Thickness by 2D (test code = 0668553) 1.09 cm LVPWD (test code = 6877461006) 0.94 cm PW (test code = 2558025513) 0.94 cm 0.6-1.1 EF(Teich) (test code = 6518722081) 40.30 % LVIDS (test code = 3169846300) 4.80 cm Left Ventricular End Systolic Volume by Teichholz Method (test code = 3904104) 109.2 mL FS (test code = 1838175836) 20 % EF - 2D (test code = 71260717) 40.30 % LVOT diameter (test code = 0626741890) 2.05 cm LVOT area (test code = 6005857684) 3.30 cm2 Ao root diam (test code = 2647518750) 3.10 cm Aortic root (test code = 2116112035) 3.1 cm Ao root annulus (test code = 0663060186) 3.1 cm LA size (test code = 0182522329) 4.2 cm LAV(MOD-sp4) (test code = 8610420394) 64.90 mL MV Peak A Evette (test code = 4464065085) 115.7 cm/s E wave decelartion time (test code = 2587856167) 0.15 s MV Peak E Evette (test code = 3690938772) 106.2 cm/s E/A ratio (test code = 5490338458) ratio LVOT stroke volume (test code = 1177151089) 48.30 cm3 LVOT peak evette (test code = 5060983052) 78.4 cm/s LVOT mn grad (test code = 1777929046) mmHg AV LVOT peak gradient (test code = 2132838217) mmHg LVOT peak VTI (test code = 9588025438) 14.7 cm LV V1 mean (test code = 6886616603) 51.40 cm/s Ao peak evette (test code = 4620795548) 154.7 cm/s AV area peak evette (test code = 4768622549) 1.7 cm2 Ao max PG (test code = 4291769614) 9.60 mm[Hg] AV peak gradient (test code = 0237582254) mmHg AV regurgitation pressure 1/2 time (test code = 2258351732) 257.3 ms AI dec slope (test code = 0357798761) 498.10 cm/s2 AI max evette (test code = 5864136084) 437.60 cm/s AI max PG (test code = 6740291121) 77.80 mm[Hg] Tapse (test code = 0118029650) 2.19 cm LA Volume Index (BP) (test code = 7326717232) 32.0 mL/m2 LA volume (BP) (test code = 2569315488) 62.1 mL LAV(MOD-sp2) (test code = 8932682010) 52.70 mL A4C EF (test code = 1161512639) 44.80 % EF(sp4-el) (test code = 8764397347) 45.20 % SV(MOD-sp4) (test code = 4681256693) 71.20 mL SV(sp4-el) (test code = 9306202307) 73.90 mL LV Diastolic Volume (BP) (test code = 6856460328) 146.3 mL A2C EF (test code = 2570500086) 52.00 % EF(MOD-bp) (test code = 6478211673) 46.70 % EF(sp2-el) (test code = 9303791331) 52.40 % LV Systolic Volume (BP) (test code = 1075355423) 77.9 mL SV(MOD-bp) (test code = 2524970876) 68.40 mL SV(MOD-sp2) (test code = 1317257452) 69.20 mL EF (test code = 2891592275) Left Ventricular Stroke Volume by 2-D Biplane-MOD (test code = 2151213) 68.4 mL Radiology Study observation (narrative) (test code = 02941-8) LYNDSAY (test code = LYNDSAY) ?Left?Ventricle: Left [...] agent used and saline contrast was performed. [facility] CenterKEPPRA (LEVETIRACETAM)2022-04-14 16:48:36* Test Item Value Reference Range Interpretation Comme [facility] KEPPRA (test code = 4561076169) 12-46 L LYNDSAY (test code = LYNDSAY) Therapeutic range: 12-46 ?g/mL ? ?Toxic: Not well established.Test developed and characteristics determined by [facility] Laboratory Services. Lab Interpretation (test code = 37096-2) Abnormal [facility] Metabolic Panel (Na, K, Cl, CO2, Glucose, BUN, Creatinine, Ca)2022-04-14 10:50:11* Test Item Value Reference Range Interpretation Comme [facility] NA (test code = 3215858726) 136 mmol/L 135-145 K (test code = 3540047526) 3.8 mmol/L 3.5-5 CL (test code = 8659110200) 105 mmol/L 98-108 CO2 TOTAL (test code = 6830314617) 25 mmol/L 23-31 AGAP (test code = 9082836471) 2-16 BUN (test code = 0748583163) 9 mg/dL 7-23 GLUCOSE (test code = 1689876917) 101 mg/dL 70-110 CREATININE (test code = 1234822755) 0.66 mg/dL 0.5-1.04 CALCIUM (test code = 9397228873) 8.1 mg/dL 8.6-10.6 L eGFR (test code = 3581906059) mL/min/1.73m2 LYNDSAY (test code = LYNDSAY) Association [...] imaging tests). Lab Interpretation (test code = 28162-4) Abnormal [facility] CenterMagensium, [id number] 10:50:11* Test Item Value Reference Range Interpretation Comme nts MAGNESIUM (test code = 9719422939) 1.9 mg/dL 1.7-2.4 Lab Interpretation (test cod e = 66652-1) Normal [facility] CenterThyroid Stimulating Vnjdjxz4290-82-06 22:21:44 * Test Item Value Reference Range Interpretation Comme nts TSH (test code = 0514779528) See_Comment Biotin has been reported to cause a negative bias, interpret results relative to patient's use of biotin. [Automated message] The system which generated this result transmitted reference range: 0.45 - 4.70 mIU/L. The reference range was not used to interpret this result as normal/abnormal. Lab Interpretation (test code = 47364-6) Normal [facility] CenterGLYCOSYLATED HEMOGLOBIN (A1C)2022-04-13 21:53:43* Test Item Value Reference Range Interpretation Comme nts HGB A1C (test code = 4548-4) 5.8 % 4-5.7 H LYNDSAY (test code = LYNDSAY) Reference RangesNormal: <5.7%Prediabetes: 5.7 - 6.4%Diabetes: > 6.5% Lab Interpretation (test code = 68483-4) Abnormal [facility] CenterFASTING LIPID PANEL (79036)(TOTAL CHOLESTEROL, TRIGLYCERIDES, HDL)2022-04-13 21:34:53* Test Item Value Reference Range Interpretation Comme nts CHOL (test code = 8404634185) 201 mg/dL 120-200 H HDL (test code = 7652408371) 56 mg/dL See_Comment [Automated [employer] ge] The system which generated this result transmitted reference range: >=50. The reference range was not used to interpret this result as normal/abnormal. HDLC RATIO (test code = 1947614435) See_Comment [Automated [employer] ge] The system which generated this result transmitted reference range: <=4.5. The reference range was not used to interpret this result as normal/abnormal. TRIG (test code = 4631658405) 355 mg/dL 30-170 H LDL CHOL (test code = 20140-8) 74 mg/dL See_Comment [Automated [employer]] The system which generated this result transmitted reference range: <=160. The reference range was not used to interpret this result as normal/abnormal. VLDL (test code = 4687574315) 71 mg/dL 5-60 H Lab Interpretation (test code = 37483-8) Abnormal [facility] CenterTroponin I - Code Usuber4068-84-17 18:46:27* Test Item Value Reference Range Interpretation Comments TROPONIN I (test code = 5771781120) 0.013 ng/mL See_Comment [Automated message] The system [...] of biotin. Lab Interpretation (test code = 25217-8) Normal [facility] CenterBasi Metabolic Panel (NA, K, CL, CO2, Glucose, BUN, Creatinine, CA) - Code Qqqxpg6670-05-22 18:35:07* Test Item Value Reference Range Interpretation Comme nts NA (test code = 9575348513) 136 mmol/L 135-145 K (test code = 5002097991) 4.3 mmol/L 3.5-5 CL (test code = 8095251673) 105 mmol/L 98-108 CO2 TOTAL (test code = 9776136425) 27 mmol/L 23-31 AGAP (test code = 2168384374) 2-16 BUN (test code = 9057693573) 8 mg/dL 7-23 GLUCOSE (test code = 3660397694) 130 mg/dL 70-110 H CREATININE (test code = 7790267482) 0.75 mg/dL 0.5-1.04 CALCIUM (test code = 2974853434) 8.5 mg/dL 8.6-10.6 L eGFR (test code = 1901184450) mL/min/1.73m2 LYNDSAY (test code = LYNDSAY) Association [...] imaging tests). Lab Interpretation (test code = 16605-2) Abnormal [facility] CenteraPTT - Code [id number] 18:32:46* Test Item Value Reference Range Interpretation Comme [facility] APTT Patient (test code = 3173-2) See_Comment [Automated message] The system which generated this result transmitted reference range: 23 - 38 Seconds. The reference range was not used to interpret this result as normal/abnormal. LYNDSAY (test code = LYNDSAY) The [facility] patient population mean normal value for aPTT is 30 seconds. Lab Interpretation (test code = 85883-2) Normal [facility] CenterProthrombin Time / INR - Code Zazedr0628-74-04 18:30:45* Test Item Value Reference Range Interpretation [...] the indications. Lab Interpretation (test code = 62929-6) Normal [facility] without Diff - Code Cqdxap0542-64-84 18:23:07* Test Item Value Reference Range Interpretation [...] result as normal/abnormal. MPV (test code = 71592-6) 8.1 fL 9.5-12.9 L RDW-CV (test code = 788-0) 16.1 % 12-15.5 H RDW-SD (test code = 91137-1) 49.2 fL 39-49.9 NRBC x10^3 (test code = 3423536518) See_Comment [Automated messa [employer]] The system which generated this result transmitted reference range: 10*3/?L. The reference range was not used to interpret this result as normal/abnormal. NRBC/100 WBC (test code = 2036015811) See_Comment [Automated [employer]] The system which generated this result transmitted reference range: 0.0 - 10.0 /100 WBCs. The reference range was not used to interpret this result as normal/abnormal. IPF % (test code = 8217699821) Lab Interpretation (test code = 88638-9) [id number]* Test Item Value Reference Range Interpretation Comments TROPONIN I (test code = 9619998068) 0.005 ng/mL See_Comment [Automated message] The system [...] of biotin. Lab Interpretation (test code = 30598-0) [facility] (84350)2021-11-23 20:55:42* Test Item Value Reference Range Interpretation Comme nts NA (test code = 4100633152) 137 mmol/L 135-145 K (test code = 9028411147) 4.3 mmol/L 3.5-5.0 CL (test code = 1449869828) 104 mmol/L 98-108 CO2 TOTAL (test code = 7216262042) 22 mmol/L 23-31 L AGAP (test code = 6993829286) 2-16 BUN (test code = 9706914399) 15 mg/dL 7-23 GLUCOSE (test code = 4015161138) 114 mg/dL 70-110 H CREATININE (test code = 9361754744) 0.68 mg/dL 0.50-1.04 TOTAL BILI (test code = 2834877976) 0.5 mg/dL 0.1-1.1 CALCIUM (test code = 1966546522) 9.1 mg/dL 8.6-10.6 T PROTEIN (test code = 5323170123) 7.3 g/dL 6.3-8.2 ALBUMIN (test code = 3452060225) 4.4 g/dL 3.5-5.0 ALK PHOS (test code = 1352981814) 243 U/L 34-122 H ALTv (test code = 1742-6) 24 U/L 5-35 AST(SGOT) (test code = 3402802022) 30 U/L 13-40 eGFR (test code = 9367727278) mL/min/1.73m2 LYNDSAY (test code = LYNDSAY) Association [...] imaging tests). Lab Interpretation (test code = 59817-3) [facility]55[facility]22* Test Item Value Reference Range Interpretation Comme nts LIPASE (test code = 2660096554) 96 U/L 0-220 Lab Interpretation (test cod e = 38836-0) [facility] [id number] 20:46:00* Test Item Value Reference Range Interpretation Comme nts POCT PREG (test code = 1605) negative On board controls acceptable with C Line (test code = 3574) present POCT PREG LOT # (test code = 3575) [id number] POCT PREG TEST DATE ( test code = 3576) 04/18/2023 Lab Interpretation (test cod e = 55394-4) [facility]CBC WITH [id number] 20:40:38* Test Item Value Reference Range Interpretation Comme nts WBC (test code = 6690-2) See_Comment [Automated [employer]] The system which generated this result transmitted reference range: 4.30 - 11.10 10*3/?L. The reference range was not used to interpret this result as normal/abnormal. RBC (test code = 789-8) See_Comment [Automated [employer]] The system which generated this result transmitted [...] 31.8 g/dL 31.6-35.1 RDW-SD (test code = 71797-7) 53.7 fL 39.0-49.9 H RDW-CV (test code = 788-0) 17.2 % 12.0-15.5 H PLT (test code = 777-3) See_Comment H [Automated messa ge] The system which generated this result transmitted reference range: 166 - 358 10*3/?L. The reference range was not used to interpret this result as normal/abnormal. MPV (test code = 92598-9) 8.5 fL 9.5-12.9 L NRBC/100 WBC (test code = 3483493192) See_Comment [Automated me ssage] The system which generated this result transmitted reference range: 0.0 - 10.0 /100 WBCs. The reference range was not used to interpret this result as normal/abnormal. NRBC x10^3 (test code = 5886880160) <0.01 See_Comment [Automated messa ge] The system which generated this result transmitted reference range: 10*3/?L. The reference range was not used to interpret this result as normal/abnormal. GRAN MAT (NEUT) % (test code = 770-8) 53.7 % IMM GRAN % (test code = 5629779037) 0.90 % LYMPH % (test code = 736-9) 32.6 % MONO % (test code = 5905-5) 10.1 % EOS % (test code = 713-8) 1.5 % BASO % (test code = 706-2) 1.2 % GRAN MAT x10^3(ANC) (test code = 3858173392) 4.98 10*3/uL 1.88-7.09 IMM GRAN x10^3 (test code = 5927858990) 0.08 10*3/uL 0.00-0.06 H LYMPH x10^3 (test code = 731-0) 3.02 10*3/uL 1.32-3.29 MONO x10^3 (test code = 742-7) 0.94 10*3/uL 0.33-0.92 H EOS x10^3 (test code = 711-2) 0.14 10*3/uL 0.03-0.39 BASO x10^3 (test code = 704-7) 0.11 10*3/uL 0.01-0.07 H Lab Interpretation (test code = 36583-2) Abnormal [facility] GLUCOSE (AUTOMATED)2021-11-23 20:17:33* Test Item Value Reference Range Interpretation Comme nts POCT GLU (test code = 4306635850) 111 mg/dL 70-110 H Notified Provide r Lab Interpretation (test code = 90289-9) [facility]normal [facility] Center[facility], THINPREP, [id number] 00:00:00 * Test Item Value Reference Range Interpretation Comme nts SOURCE: (test code = 8001) Endocervical SLIDES: (test code = 8011) 1 LMP: (test code = 8021) 06/03/2021 SPECIMEN ADEQUACY: (test code = 12525) (NOTE) INTERPRETATION: (test code = 03500) ASCUS/EPITH. ABNORMALITY; SEE BELOW STAGE PRODUCER: (test code = 8101) CHANA Thacker(ASCP)[facility] PATHOLOGIST INTERPRETATION BY: (test code = 8122) Nahid Russell M.D. LOCATION: (test code = 88948) (NOTE) CPT: (test code = 8140) (NOTE) PAP TEST, THINPREP, [id number] 00:00:00* Test Item Value Reference Range Interpretation Comme nts SOURCE: (test code = 8001) Endocervical SLIDES: (test code = 8011) 1 LMP: (test code = 8021) 06/03/2021 SPECIMEN ADEQUACY: (test code = 12908) (NOTE) INTERPRETATION: (test code = 72906) ASCUS/EPITH. ABNORMALITY; SEE BELOW STAGE PRODUCER: (test code = 8101) CHANA Thacker(ASC)[facility] PATHOLOGIST INTERPRETATION BY: (test code = 8122) Nahid Russell M.D. LOCATION: (test code = 96911) (NOTE) CPT: (test code = 8140) (NOTE) PAP TEST, THINPREP, [id number] 00:00:00* Test Item Value Reference Range Interpretation Comme nts SOURCE: (test code = 8001) Endocervical SLIDES: (test code = 8011) 1 LMP: (test code = 8021) 06/03/2021 SPECIMEN ADEQUACY: (test code = 64078) (NOTE) INTERPRETATION: (test code = 96074) ASCUS/EPITH. ABNORMALITY; SEE BELOW STAGE PRODUCER: (test code = 8101) CHANA Thacker(ASCP)[facility] PATHOLOGIST INTERPRETATION BY: (test code = 8122) Nahid Russell M.D. LOCATION: (test code = 58959) (NOTE) CPT: (test code = 8140) (NOTE) PAP TEST, THINPREP, [id number] 00:00:00* Test Item Value Reference Range Interpretation Comme nts SOURCE: (test code = 8001) Endocervical SLIDES: (test code = 8011) 1 LMP: (test code = 8021) 06/03/2021 SPECIMEN ADEQUACY: (test code = 10581) (NOTE) INTERPRETATION: (test code = 71617) ASCUS/EPITH. ABNORMALITY; SEE BELOW STAGE PRODUCER: (test code = 8101) CHANA Thacker(ASCP)[facility] PATHOLOGIST INTERPRETATION BY: (test code = 8122) Nahid Russell M.D. LOCATION: (test code = 34326) (NOTE) CPT: (test code = 8140) (NOTE) HPV HIGH RISK WITH GENOTYPE, [id number] 00:00:00* Test Item Value Reference Range Interpretation Comme nts HPV HIGH RISK INTERP (test c ode = 03179) POSITIVE HPV 16 (test code = 89025) POSITIVE HPV 18 (test code = 79489) NEGATIVE HPV, HR, OTHER GENOTYPES (te st code = 85642) POSITIVE HPV HIGH RISK WITH GENOTYPE, [id number] 00:00:00* Test Item Value Reference Range Interpretation Comme nts HPV HIGH RISK INTERP (test c ode = 67869) POSITIVE HPV 16 (test code = 26352) POSITIVE HPV 18 (test code = 90540) NEGATIVE HPV, HR, OTHER GENOTYPES (te st code = 96622) POSITIVE HPV HIGH RISK WITH GENOTYPE, [id number] 00:00:00* Test Item Value Reference Range Interpretation Comme nts HPV HIGH RISK INTERP (test c ode = 07532) POSITIVE HPV 16 (test code = 93676) POSITIVE HPV 18 (test code = 23091) NEGATIVE HPV, HR, OTHER GENOTYPES (te st code = 56279) POSITIVE HPV HIGH RISK WITH GENOTYPE, [id number] 00:00:00* Test Item Value Reference Range Interpretation Comme nts HPV HIGH RISK INTERP (test c ode = 94554) POSITIVE HPV 16 (test code = 72912) POSITIVE HPV 18 (test code = 38351) NEGATIVE HPV, HR, OTHER GENOTYPES (te st code = 00898) POSITIVE [id number] 03:22:48* Test Item Value Reference Range Interpretation Comme nts APPEARANCE (test code = 1592429472) Hazy Clear A COLOR (test code = 9276395370) Yellow Yellow PH (test code = 5223250063) 4.8-8.0 SP GRAVITY (test code = 8965785968) 1.003-1.030 GLU U QUAL (test code = 9529117596) Normal Normal BLOOD (test code = 6418196415) Negative Negative Interference fro m ascorbic acid may cause false negative results. KETONES (test code = 6154169982) 5 mg/dL Negative A PROTEIN (test code = 2887-8) Negative Negative UROBILIN (test code = 6836755160) 4.0 mg/dL Normal A BILIRUBIN (test code = 6208834026) Negative Negative NITRITE (test code = 0782669382) Negative Negative LEUK GRUPO (test code = 1157928868) Negative Negative RBC/HPF (test code = 7715034357) See_Comment [Automated messa ge] The system which generated this result transmitted reference range: 0 - 3 HPF. The reference range was not used to interpret this result as normal/abnormal. WBC/HPF (test code = 5582124069) <1 See_Comment [Automated messa ge] The system which generated this result transmitted reference range: 0 - 5 HPF. The reference range was not used to interpret this result as normal/abnormal. BACTERIA (test code = 5667122559) Few Negative A SQ EPITH (test code = 5333446645) HPF Lab Interpretation (test code = 61632-1) [facility]IN[facility]IS2021[facility] 03:22:48* Test Item Value Reference Range Interpretation Comme nts APPEARANCE (test code = 8785693409) Hazy Clear A COLOR (test code = 6541113281) Yellow Yellow PH (test code = 9991661373) 4.8-8.0 SP GRAVITY (test code = 3660835705) 1.003-1.030 GLU U QUAL (test code = 6193244705) Normal Normal BLOOD (test code = 2129311596) Negative Negative KETONES (test code = 8294073949) 5 mg/dL Negative A PROTEIN (test code = 2887-8) Negative Negative UROBILIN (test code = 4489206075) 4.0 mg/dL Normal A BILIRUBIN (test code = 8849096556) Negative Negative NITRITE (test code = 9446243725) Negative Negative LEUK GRUPO (test code = 8437678999) Negative Negative RBC/HPF (test code = 1454505342) See_Comment [Automated [employer]] The system which generated this result transmitted reference range: 0 - 3 HPF. The reference range was not used to interpret this result as normal/abnormal. WBC/HPF (test code = 9749553960) <1 See_Comment [Automated [employer]] The system which generated this result transmitted reference range: 0 - 5 HPF. The reference range was not used to interpret this result as normal/abnormal. BACTERIA (test code = 5353778088) Few Negative A SQ EPITH (test code = 9232170690) HPF Lab Interpretation (test code = 88500-9) Abnormal [facility] [id number] 02:45:00* Test Item Value Reference Range Interpretation Comments TROPONIN I (test code = 4369603451) 0.002 ng/mL See_Comment [Automated message] The system [...] of biotin. Lab Interpretation (test code = 36766-6) Normal [facility] [id number] 02:45:00* Test Item Value Reference Range Interpretation Comme nts TROPONIN I (test code = 5393788647) 0.002 ng/mL See_Comment [Automated [employer]] The system which generated this result transmitted reference range: <=0.034. The reference range was not used to interpret this result as normal/abnormal. LYNDSAY (test code = LYNDSAY) Lab Interpretation (test code = 06060-2) Normal [facility]AL NTT-[id number] 02:41:57* Test Item Value Reference Range Interpretation Comme nts NT-proBNP (test code = 6072091209) 169 pg/mL See_Comment H [Automated message] The system which generated this result transmitted reference range: <=125. The reference range was not used to interpret this result as normal/abnormal. LYNDSAY (test code = LYNDSAY) Biotin has been reported to cause a negative bias, interpret results relative to patient's use of biotin. Lab Interpretation (test code = 89884-0) [facility]normal [facility]AL SWI-ZGI2069-03-29 02:41:57* Test Item Value Reference Range Interpretation Comme nts NT-proBNP (test code = 3641507448) 169 pg/mL See_Comment H [Automated [employer]] The system which generated this result transmitted reference range: <=125. The reference range was not used to interpret this result as normal/abnormal. LYNDSAY (test code = LYNDSAY) Lab Interpretation (test code = 76856-4) Abnormal [facility]. METABOLIC PANEL (18543)2021-03-17 02:09:13* Test Item Value Reference Range Interpretation Comme nts NA (test code = 1591568729) 137 mmol/L 135-145 K (test code = 5060594320) 4.2 mmol/L 3.5-5.0 CL (test code = 5787005688) 102 mmol/L 98-108 CO2 TOTAL (test code = 6582920768) 25 mmol/L 23-31 AGAP (test code = 1514790797) 2-16 BUN (test code = 5000568281) 18 mg/dL 7-23 GLUCOSE (test code = 2910007694) 144 mg/dL 70-110 H CREATININE (test code = 5823842140) 0.77 mg/dL 0.50-1.04 TOTAL BILI (test code = 7817298367) 0.4 mg/dL 0.1-1.1 CALCIUM (test code = 8797009923) 8.9 mg/dL 8.6-10.6 T PROTEIN (test code = 0636494048) 6.8 g/dL 6.3-8.2 ALBUMIN (test code = 3532681503) 3.9 g/dL 3.5-5.0 ALK PHOS (test code = 7940729597) 84 U/L 34-122 ALTv (test code = 1742-6) 13 U/L 5-35 AST(SGOT) (test code = 9576350864) 17 U/L 13-40 eGFR (test code = 6353031527) mL/min/1.73m2 LYNDSAY (test code = LYNDSAY) Association [...] imaging tests). Lab Interpretation (test code = 43089-8) Abnormal [facility] METABOLIC PANEL (28908)2021-03-17 02:09:13* Test Item Value Reference Range Interpretation Comme nts NA (test code = 2829153315) 137 mmol/L 135-145 K (test code = 8681656545) 4.2 mmol/L 3.5-5.0 CL (test code = 7314581585) 102 mmol/L 98-108 CO2 TOTAL (test code = 5276458939) 25 mmol/L 23-31 AGAP (test code = 7464702528) 2-16 BUN (test code = 5734335312) 18 mg/dL 7-23 GLUCOSE (test code = 4338737066) 144 mg/dL 70-110 H CREATININE (test code = 2179344274) 0.77 mg/dL 0.50-1.04 TOTAL BILI (test code = 5766162439) 0.4 mg/dL 0.1-1.1 CALCIUM (test code = 9622546531) 8.9 mg/dL 8.6-10.6 T PROTEIN (test code = 3761930069) 6.8 g/dL 6.3-8.2 ALBUMIN (test code = 3645409330) 3.9 g/dL 3.5-5.0 ALK PHOS (test code = 8016042969) 84 U/L 34-122 ALTv (test code = 1742-6) 13 U/L 5-35 AST(SGOT) (test code = 0416261833) 17 U/L 13-40 eGFR (test code = 6462592650) mL/min/1.73m2 LYNDSAY (test code = LYNDSAY) Lab Interpretation (test cod e = 95458-1) Abnormal [facility] WITH [id number] 01:56:33* Test Item Value Reference Range Interpretation [...] g/dL 31.6-35.1 L RDW-SD (test code = 85913-4) 55.5 fL 39.0-49.9 H RDW-CV (test code = 788-0) 18.9 % 12.0-15.5 H PLT (test code = 777-3) See_Comment H [Automated messa ge] The system which generated this result transmitted reference range: 166 - 358 10*3/?L. The reference range was not used to interpret this result as normal/abnormal. MPV (test code = 49619-8) 8.2 fL 9.5-12.9 L NRBC/100 WBC (test code = 9144701675) See_Comment [Automated me ssage] The system which generated this result transmitted reference range: 0.0 - 10.0 /100 WBCs. The reference range was not used to interpret this result as normal/abnormal. NRBC x10^3 (test code = 6975417771) <0.01 See_Comment [Automated messa ge] The system which generated this result transmitted reference range: 10*3/?L. The reference range was not used to interpret this result as normal/abnormal. GRAN MAT (NEUT) % (test code = 770-8) 61.7 % IMM GRAN % (test code = 7188355309) 0.80 % LYMPH % (test code = 736-9) 28.5 % MONO % (test code = 5905-5) 6.3 % EOS % (test code = 713-8) 1.8 % BASO % (test code = 706-2) 0.9 % GRAN MAT x10^3(ANC) (test code = 5536634398) 7.31 10*3/uL 1.88-7.09 H IMM GRAN x10^3 (test code = 7114902631) 0.09 10*3/uL 0.00-0.06 H LYMPH x10^3 (test code = 731-0) 3.38 10*3/uL 1.32-3.29 H MONO x10^3 (test code = 742-7) 0.75 10*3/uL 0.33-0.92 EOS x10^3 (test code = 711-2) 0.21 10*3/uL 0.03-0.39 BASO x10^3 (test code = 704-7) 0.11 10*3/uL 0.01-0.07 H Lab Interpretation (test code = 95523-8) Abnormal [facility] WITH [id number] 01:56:33* Test Item Value Reference Range Interpretation [...] g/dL 31.6-35.1 L RDW-SD (test code = 80897-1) 55.5 fL 39.0-49.9 H RDW-CV (test code = 788-0) 18.9 % 12.0-15.5 H PLT (test code = 777-3) See_Comment H [Automated messa ge] The system which generated this result transmitted reference range: 166 - 358 10*3/?L. The reference range was not used to interpret this result as normal/abnormal. MPV (test code = 37664-5) 8.2 fL 9.5-12.9 L NRBC/100 WBC (test code = 0556808304) See_Comment [Automated me ssage] The system which generated this result transmitted reference range: 0.0 - 10.0 /100 WBCs. The reference range was not used to interpret this result as normal/abnormal. NRBC x10^3 (test code = 0572407043) <0.01 See_Comment [Automated messa ge] The system which generated this result transmitted reference range: 10*3/?L. The reference range was not used to interpret this result as normal/abnormal. GRAN MAT (NEUT) % (test code = 770-8) 61.7 % IMM GRAN % (test code = 1042059458) 0.80 % LYMPH % (test code = 736-9) 28.5 % MONO % (test code = 5905-5) 6.3 % EOS % (test code = 713-8) 1.8 % BASO % (test code = 706-2) 0.9 % GRAN MAT x10^3(ANC) (test code = 1003650586) 7.31 10*3/uL 1.88-7.09 H IMM GRAN x10^3 (test code = 6171433782) 0.09 10*3/uL 0.00-0.06 H LYMPH x10^3 (test code = 731-0) 3.38 10*3/uL 1.32-3.29 H MONO x10^3 (test code = 742-7) 0.75 10*3/uL 0.33-0.92 EOS x10^3 (test code = 711-2) 0.21 10*3/uL 0.03-0.39 BASO x10^3 (test code = 704-7) 0.11 10*3/uL 0.01-0.07 H Lab Interpretation (test code = 13050-1) [facility] NOW RAPID TESTING)2021-03-17 01:38:12* Test Item Value Reference Range Interpretation Comme nts SARS-CoV-2 Rapid ID NOW (test code = 09043-3) Not Detected Not Detected LYNDSAY (test code = LYNDSAY) ID NOW COVID-19 As say is an isothermal nucleic acid amplification test intended for the qualitative detection of nucleic acid from SARS-CoV-2 viral RNA in nasopharyngeal ([employer]) specimens. It is used under Emergency Use Authorization (EUA) by [facility]. The limit of detection (LOD) of [...] clinically indicated. Lab Interpretation (test code = 24020-1) Normal [place] [address] (ID NOW RAPID TESTING)2021-03-17 01:38:12* Test Item Value Reference Range Interpretation Comme nts SARS-CoV-2 Rapid ID NOW (raisa t code = 66845-7) Not Detected Not Detected LYNDSAY (test code = LYNDSAY) Lab Interpretation (test cod e = 12960-4) Normal [place] [address] (ID NOW RAPID TESTING)2021-02-19 17:42:45* Test Item Value Reference Range Interpretation Comme nts SARS-CoV-2 Rapid ID NOW (test code = 98358-8) Not Detected Not Detected LYNDSAY (test code = LYNDSAY) ID NOW COVID-19 As say is an isothermal nucleic acid amplification test intended for the qualitative detection of nucleic acid from SARS-CoV-2 viral RNA in nasopharyngeal ([employer]) specimens. It is used under Emergency Use Authorization (EUA) by [facility]. The limit of detection (LOD) of [...] clinically indicated. Lab Interpretation (test code = 97338-3) [facility]OMEN PELVIS W [id number] 17:24:55Thickening of the gastric antrum and duodenal [...] 02/19/2021 12:26 PM CDT Patient name: HEATHER ONTIVEROSB: 1970 51 years [...] Electronicallysigned by James Freeman at 02/19/2021 12:[facility] TqknteLmmkcrisox6033-04-61 17:03:40* Test Item Value Reference Range Interpretation Comme nts APPEARANCE (test code = 0280495836) Hazy Clear A COLOR (test code = 7499819807) Mabel Yellow A PH (test code = 8462544675) 4.8-8.0 SP GRAVITY (test code = 7854366129) 1.003-1.030 H GLU U QUAL (test code = 9429853516) Normal Normal BLOOD (test code = 7687321991) Negative Negative KETONES (test code = 9128344903) 5 mg/dL Negative A PROTEIN (test code = 2887-8) 30 mg/dL Negative A UROBILIN (test code = 2782185828) 4.0 mg/dL Normal A BILIRUBIN (test code = 7168939539) 4 mg/dL Negative A NITRITE (test code = 1228580307) Negative Negative LEUK GRUPO (test code = 3895276285) Negative Negative RBC/HPF (test code = 6798502223) See_Comment H [Automated messa ge] The system which generated this result transmitted reference range: 0 - 3 HPF. The reference range was not used to interpret this result as normal/abnormal. WBC/HPF (test code = 2101079155) See_Comment H [Automated messa ge] The system which generated this result transmitted reference range: 0 - 5 HPF. The reference range was not used to interpret this result as normal/abnormal. BACTERIA (test code = 8132946346) Few Negative A MUCOUS (test code = 6729606043) Moderate Negative LPF A SQ EPITH (test code = 9438393000) HPF CA OXALATE (test code = 3872621739) See_Comment H [Automated messa ge] The system which generated this result transmitted reference range: <=1 HPF. The reference range was not used to interpret this result as normal/abnormal. Ictotest (test code = 2034119910) Negative Lab Interpretation (test code = 76050-0) [facility]normal [facility] Center[facility] Metabolic Vzntp1474-91-21 16:34:55* Test Item Value Reference Range Interpretation Comme nts NA (test code = 8686184472) 139 mmol/L 135-145 K (test code = 4046023606) 4.3 mmol/L 3.5-5.0 CL (test code = 4463224604) 105 mmol/L 98-108 CO2 TOTAL (test code = 7243648355) 26 mmol/L 23-31 AGAP (test code = 8062211442) 2-16 BUN (test code = 4874712437) 11 mg/dL 7-23 GLUCOSE (test code = 5753376478) 95 mg/dL 70-110 CREATININE (test code = 6006485595) 0.70 mg/dL 0.50-1.04 TOTAL BILI (test code = 1360746193) 0.6 mg/dL 0.1-1.1 CALCIUM (test code = 7903793292) 8.9 mg/dL 8.6-10.6 T PROTEIN (test code = 7016397923) 7.7 g/dL 6.3-8.2 ALBUMIN (test code = 8514838037) 4.1 g/dL 3.5-5.0 ALK PHOS (test code = 6507685121) 79 U/L 34-122 ALTv (test code = 1742-6) 10 U/L 5-35 AST(SGOT) (test code = 2055207825) 22 U/L 13-40 eGFR (test code = 2063021383) mL/min/1.73m2 LYNDSAY (test code = LYNDSAY) Association [...] or urine or abnormalities in imaging tests). [facility] CenterLip[facility], Yzbfn4867-10-77 16:34:14* Test Item Value Reference Range Interpretation Comme nts LIPASE (test code = 8892449828) 45 U/L 0-220 Lab Interpretation (test cod e = 81327-7) Normal [facility] with Mbsfecyvbhmd8401-03-33 16:21:12* Test Item Value Reference Range Interpretation [...] g/dL 31.6-35.1 L RDW-SD (test code = 91955-1) 54.4 fL 39.0-49.9 H RDW-CV (test code = 788-0) 18.3 % 12.0-15.5 H PLT (test code = 777-3) See_Comment H [Automated messa ge] The system which generated this result transmitted reference range: 166 - 358 10*3/?L. The reference range was not used to interpret this result as normal/abnormal. MPV (test code = 89942-6) 8.5 fL 9.5-12.9 L NRBC/100 WBC (test code = 6930320095) See_Comment [Automated me ssage] The system which generated this result transmitted reference range: 0.0 - 10.0 /100 WBCs. The reference range was not used to interpret this result as normal/abnormal. NRBC x10^3 (test code = 1986468945) <0.01 See_Comment [Automated messa ge] The system which generated this result transmitted reference range: 10*3/?L. The reference range was not used to interpret this result as normal/abnormal. GRAN MAT (NEUT) % (test code = 770-8) 78.3 % IMM GRAN % (test code = 3506686575) 0.40 % LYMPH % (test code = 736-9) 15.4 % MONO % (test code = 5905-5) 4.8 % EOS % (test code = 713-8) 0.1 % BASO % (test code = 706-2) 1.0 % GRAN MAT x10^3(ANC) (test code = 3900804153) 7.15 10*3/uL 1.88-7.09 H IMM GRAN x10^3 (test code = 1692177492) 0.04 10*3/uL 0.00-0.06 LYMPH x10^3 (test code = 731-0) 1.41 10*3/uL 1.32-3.29 MONO x10^3 (test code = 742-7) 0.44 10*3/uL 0.33-0.92 EOS x10^3 (test code = 711-2) <0.03 0.03-0.39 L BASO x10^3 (test code = 704-7) 0.09 10*3/uL 0.01-0.07 H Lab Interpretation (test code = 64708-6) Abnormal [facility] Notes Date/Time Note Provider Source 2023-09-11 11:34:02 SvC5Z4wRKrGOTqnhXDXOQIZepEWlkfM/d0RsA3 HycnxBGHxvg/KJnYdhoir0WE8m5805-66-88J7 1:34:02 Chief ComplaintPatient presents withFollow-up HospitalizationPaBETO HarperN [id number] BikpWJ5097-37-01R38:34:35Nurse NoteTXT1.2.840.230650.1.13.131.2.7.2.7 06708|[id number] for patient vtvk58397-0Msecp NoteLNNARRATIVEFormatted C-CDA narrative textMemorial Hospital of [facility] [facility].[id number] 799-21-46Q72:34:351.2.840.580303.1.72. 3.15|1.2.840.875085.1.13.131.2.7.2.727 [id number] [facility] 2023-08-12 16:08:34 LvJJkfUtimIUf44P4leSlqEy/YrczYt3v+T3SV nYvsudAyKDAel2iWTaP3TVNrcm0161-64-16P3 6:08:34 Bryan spoke to patient and patient decided to leave AMA.AMA form signed by patient and attached to paperwork.Patient in stable condition with AMA. IV line removed and patient was assisted onto wheelchair and moved to the [facility].Patient called her prior to leaving room and will be picking up patient. 70984-6Idyziagcw department GuebOI4331-82-28V96:09:43[facility] NoteTXT1.2.840.559005.1.13.104.2.7.2.7 47498|[id number] for patient hplr36326-7BkejZBDLNODLGUBTgnxcnjrc C-CDA narrative [id number] [place] RNUTMBUT - [address] Street[id number] LJHZHJPHPMKAGULCTQVD4057-78-06S33:09:4 31.2.840.527894.1.72.3.15|1.2.840.1143 [id number] Steph Dumont RN [facility] 2023-08-12 15:56:21 +/EiAnLrLoZ547/juVtzFHmrT0Q2mHQTyJqUUd X0RupovvxMuEkEhhxqSjzNOOlK8069-12-54U7 5:56:21 Patient requesting to talk to provider - provider aware.Patient refused tylenol as she said medication does not improve her condition and she does not want to throw it up.Patient also refusing blood draw at this time. 06895-0Pwjhtxewh department NlwqAQ0440-74-47X00:57:14Emergen department NoteTXT1.2.840.226876.1.13.104.2.7.2.7 16684|[id number] for patient vzei91678-4ZntaAQZEJQNMDTDBvruxzfwi C-CDA narrative text[address] GvhdTbougiuxtTpnjsmzhyGWVH5271998359TZ XABBWZROCZTAUUPXTXSI2182-92-81L39:57:1 41.2.840.385235.1.72.3.15|1.2.840.1143 50.1.13.104.2.7.2.727879_[id number] [facility] 2023-08-12 14:50:00 jw1QuHEL4wlYbBxtIlPp6LTXpWdPFl7t0G/mPV ju8FvjH6AKHd8gG6jB7CN5Lmpk2118-36-80Z1 4:50:00 Patient's name and verified with patient.No [...] [place] [address]-0Pskpjqvta department XrcgCR3241-59-73D36:29:07[facility] NoteTXT1.2.840.774385.1.13.104.2.7.2.7 33812|[id number] for patient sogw17990-0NyxyPVCHCQLHMJWJhfkroyyw C-CDA narrative textUT[address] DpstGgtjdslfvXdpudgvntNYFX8232050011ZF YKBWZSAKXISDOUWUNJOT2242-85-95C74:29:0 71.2.840.810474.1.72.3.15|1.2.840.1143 50.1.13.104.2.7.2.727879_[id number] [facility] 2023-08-12 14:17:22 cm3GRFy7eZ8lS0Ek2TY29GFkGNyd++4elk8ks3 hXP5UpmD+yiZRorrxCqYSlWzwo9198-44-25C9 4:17:22 Patient had witnessed seizure like activity.DO Flor at bedside.Patient stopped seizure activity and had no postictal phase.Patient coherent, alert and oriented/answering all questions appropriately. 08929-0Xlzytiabh department JhwqBE5778-51-68Y94:18:15[facility] NoteTXT1.2.840.728401.1.13.104.2.7.2.7 55459|[id number] for patient gosk46282-9NgsrRQUYBXWNAUEZalfiidub C-CDA narrative textUT[id number] JEQRBJRVDOJQVDERSNXF8106-09-48M72:18:1 51.2.840.188748.1.72.3.15|1.2.840.1143 50.1.13.104.2.7.2.727879_[id number] [facility] 2023-08-12 13:45:33 SzYDg0Kw0uHDYsdiGlq0KjC16Px6pBv/HjgJpP W+B+ki7zTU0c1lHx/QBn9TZXJ07872-24-26R7 3:45:33 Patient here for chest pain that started approximately 1 hour ago. Patient had seizure like activity in the vehicle while attempting to get patient out of the car, patient had no post ictal phase. Patient c/o substernal chest pain and jaw pain. 79325-4Mjlvezfxt department Triage gxduHG7600-49-49K93:46:59[facility] Triage noteTXT1.2.840.159494.1.13.104.2.7.2.7 14681|[id number] for patient rxzr08435-1Omarqoujs department NoteLNNARRATIVEFormatted C-CDA narrative [id number] S Cryer RNUT[id number] BKYXUGCWIAVAZDGFOOJI4496-62-13C01:46:5 91.2.840.774951.1.72.3.15|1.2.840.1143 [id number]_[id number] Jasvir Reaves RN [facility] - Health 2023-08-12 13:42:00 LhLkXcBjAJNB3+avrS/8rdqIhmaTyMMR17Zu/c +2Rw+/W7PX33P9c5m7zuxmWUmS8560-01-72H7 3:42:[address] [facility] Emergency Department NotePatient Name: Heather TurnerDate of : 1970 53 year old femaleTreatment Room: [place] [address]HG7Xccrjri Record Number: [id number] Care Physician: PATIENT DOES NOT HAVE A PCPPatient Escorted by: Family [5]Mode of Arrival: Personal means [1]EMS Treatment Prior to ED Arrival:[employer] treatment: NoneTravel and Exposure Screening:SymptomsDoes patient have [...] received in last 5 years: NoChildhood immunizations: Cc-sn-cousNvbnendbh:AllergiesAllergen ReactionsGreen Tea Other - See commentsSeizuresDiclofenac HypertensionKeppra [...] Right 08/14/2015Surgeon: Luis Jones Jr., DP; [facility]:Review of SystemsPhysical Exam:ED Triage Vitals [...] (*) 0.01 - 0.07 10*3/uLCOMP. METABOLIC PANEL (93260) - AbnormalNA 140 135 - 145 mmol/LK [...] U/LAST(SGOT) 21 13 - 40 U/LeGFR 107.1 mL/min/1.95d9DHQKPT ACID WHOLE BLOOD - NormalLACTIC ACID 1.56 0.50 - 2.20 mmol/LURINALYSISTROPONIN IEKG:If EKG completed, see Procedure Note.Orders and Treatments:Orders Placed This EncounterProceduresCbc with DiffComp. Metabolic Panel (27632)UrinalysisLactic Acid Whole BloodTroponin IOrders Placed This EncounterMedicationslacosamide (VIMPAT) 100 mg in NaCl 0.9% (NS) 50 mL piggybackacetaminophen (TYLENOL) tablet 1,000 mgFirst Provider Eval:ED EventsDate/Time Event User Pwhmzvae18/24/24 1345 Medical Screening Begins BRIAN BRYAN --08/12/23 [...] on fileFollow-up:Contact information for follow-Yehuda Segovia MDSpecialty: -[facility] AND [address] [address]Yypzt: [phone]-Emergency DepartmentSpecialty: Emergency [address] [place] [address]Tnxrg: [phone]: If symptoms worsen as documented in the dischargeElectronically signed by:Brian Bryan DO08/12/23 1605Brian Bryan DO08/12/23 1605 96605-2Xarkdpkwg Emergency department TronRA9851-21-12N10:05:59Physician Emergency department NoteTXT1.2.840.672880.1.13.104.2.7.2.7 31308|[id number] for patient vtdk48856-0Tojvijuyt department NoteLNNARRATIVEFormatted C-CDA narrative textUTTH[facility] [[email or web address]] - [id number] COXXPOCFIYCIVVVCLDVW3573-02-75N48:05:5 91.2.840.435746.1.72.3.15|1.2.840.1143 [id number] [facility]
--- NOTE | 2023-10-31 20:43 | RAD REPORT ---
EXAM DESCRIPTION: Leno Single View10/31/2023 8:10 pm CLINICAL HISTORY: Chest pain COMPARISON: September 2023 FINDINGS: The lungs appear clear of acute infiltrate. The heart is moderately enlarged IMPRESSION: No acute abnormalities displayed
[2023-10-31 20:55] LABS: Absolute Basophils 0.1 K/uL (0-0.5); Absolute Lymphocytes (CBC) 2.3 K/uL (0.7-4.9); Absolute Monocytes 0.8 K/uL (0.1-1.3); Absolute Neutrophil 5.7 K/uL (1.8-8.0); Basophils % 1.2 % (0-1.3); Eosinophils % 0.3 % (0-4.4); Hematocrit 34.6 % (36.0-45.0); Hemoglobin 10.8 g/dL (12.0-15.0); Lymphocytes % 25.9 % (15.3-44.8); MCH 25.1 pg (27.0-35.0); MCHC 31.1 g/dL (32.0-36.0); MCV 80.7 fL (80-100); MPV 6.8 fL (7.6-11.3); Monocytes % 8.6 % (3.3-12.3); Nucleated Red Blood Cells % 0.1 % (0-0); PT Prothrombin Time 12.2 SECONDS (9.5-12.5); Platelets 417 thou/uL (152-406); Protime INR 1.11; RBC Red Blood Cell Count 4.29 M/uL (3.86-4.86); Red Cell Distribution Width 21.4 % (12.1-15.2)
[2023-10-31] MEDS ORDERED: HYDROMORPHONE HCL 1 MG/ML INJ ONE (20:55)
[2023-10-31 21:15] LABS: Albumin 3.1 g/dL (3.4-5.0); Albumin/Globulin Ratio 0.8 (1.1-1.8); Bilirubin Direct 0.1 mg/dL (0-0.2); Bilirubin Indirect, Calculated 0.2 mg/dL (0.2-0.8); Bilirubin Total 0.3 mg/dL (0.2-1.0); Protein, Total 7.1 g/dL (6.4-8.2); Troponin High Sensitivity 43.7 pg/mL (<58.9)
[2023-10-31 21:15] LABS: Barbiturates NEGATIVE (NEGATIVE); Benzodiazepines POSITIVE (NEGATIVE); Cocaine POSITIVE (NEGATIVE); METHAMPHETAM NEGATIVE (NEGATIVE); Methadone NEGATIVE (NEGATIVE); Opiates NEGATIVE (NEGATIVE); Phencyclidine NEGATIVE (NEGATIVE); Sqamous Epithelial 20-50 /HPF (None Seen); THC Cannibis POSITIVE (NEGATIVE); Urine Bacteria 20-50 /HPF (<20); Urine Bilirubin NEGATIVE (Negative); Urine Blood 1+ (Negative); Urine Clarity Extremely Turbid (Clear); Urine Color Yellow (Yellow); Urine Culture Reflex Order NOT NEEDED; Urine Glucose NEGATIVE (Negative); Urine Ketones NEGATIVE (Negative); Urine Micro Reflex YN NO BILL MICROSCOPIC; Urine Mucus Slight /HPF (None Seen); Urine Nitrite NEGATIVE (Negative); Urine Protein 2+ (Negative); Urine RBC 21-50 /HPF (None Seen); Urine Urobilinogen 1+ (Normal); Urine WBC <5 /HPF (<5); Urine pH 6.5 (5.0-7.0)
[2023-10-31 21:16] LABS: Magnesium 2.1 mg/dL (1.6-2.4)
[2023-10-31 21:26] LABS: Anisocytosis 1+; Blood Morphology Comment NOTED (NOT SEEN); Platelet Estimate ADEQ; White Blood Cell Scan OK (OK)
[2023-10-31] MEDS ORDERED: METOPROLOL TAR 50 MG TAB ONE (23:13)
[2023-11-01] MEDS ORDERED: NA CHLORIDE 0.9% 50 ML ONE (00:23)
[2023-11-01] MEDS ORDERED: HYDROMORPHONE HCL 1 MG/ML INJ ONE (00:23)
[2023-11-01] MEDS ORDERED: PROMETHAZINE INJ 25 MG/ML AMP ONE (00:23)
--- NOTE | 2023-11-01 01:48 | EDPHYS ---
Physician Documentation [facility] Name: Heather Coon Age: 53 yrs Sex: Female : 1970 Arrival Date: 10/31/2023 Time: 19:37 Bed 13 Private MD: ED Physician Andrea Pizano HPI: 10/30 19:48 This 53 yrs old Female presents to ER via EMS with complaints of Chest Pain. cp 19:48 The patient or guardian reports chest pain that is located primarily in the anterior cp chest wall. 19:48 Onset: 1 hour(s) ago. cp 19:48 Associated signs and symptoms: Pertinent positives: shortness of breath, back pain, cp Pertinent negatives: diarrhea, fever, vomiting. The chest pain is described as a heaviness. Duration: The patient or guardian reports a single episode, that is still ongoing. 19:48 Patient reports fall from standing while in bathroom yesterday. Fell onto knees. Now cp having increased back pain. [employer]: 22:45 LMP N/A - Post-menopause, Not me1 Historical: - Allergies: 19:47 fluoxetine; rv 19:47 Green Tea; rv 19:47 Keppra; not an allergy; rv - PMHx: 19:47 Anxiety; Arthritis; Bipolar disorder; Cancer-Cervical; Chronic obstructive lung rv disease; Chronic pain; Congestive heart failure; Depression; Diverticulitis; Herniated Back Disc; Hypertension; intestinal mass; Myocardial infarction; pt reports hx of seizures; Spastic Muscles; stroke; - PSHx: 19:47 cervical fusion; back surgery; Cholecystectomy; foot; Tonsillectomy; rv - Immunization history:: Adult Immunizations up to date. - Infectious Disease History:: Denies. - Social history:: Smoking status: Patient reports the use of cigarette tobacco products, smokes one pack cigarettes per day. ROS: 19:50 Constitutional: Negative for body aches, chills, fever, poor PO intake, cp 19:50 Eyes: Negative for injury, pain, redness, and discharge, cp 19:50 ENT: Negative for drainage from ear(s), ear pain, sore throat, difficulty swallowing, difficulty handling secretions, 19:50 Neck: Negative for pain with movement, pain at rest, stiffness, 19:50 Cardiovascular: Positive for chest pain, Negative for edema, palpitations, 19:50 Respiratory: Positive for shortness of breath, Negative for cough, 19:50 Abdomen/GI: Negative for abdominal pain, vomiting, diarrhea, constipation, 19:50 Back: Negative for pain at rest, pain with movement, 19:50 Neuro: Negative for altered mental status, dizziness, headache, numbness, syncope, weakness, 19:50 All other systems are negative, Exam: 19:50 ECG was reviewed by the Attending Physician. cp 19:55 Constitutional: The patient appears in no acute distress, alert, awake, cp non-diaphoretic, non-toxic, well developed, well nourished, anxious, uncomfortable, tearful 19:55 Head/Face: Normocephalic, atraumatic. cp 19:55 Eyes: Periorbital structures: appear normal, Conjunctiva: normal, no exudate, no injection, Sclera: no appreciated abnormality, Lids and lashes: appear normal, bilaterally, 19:55 ENT: External ear(s): are unremarkable, Nose: is normal, Mouth: is normal, Posterior pharynx: Airway: no evidence of obstruction, patent, 19:55 Neck: C-spine: vertebral tenderness, is not appreciated, crepitus, is not appreciated, 19:55 Chest/axilla: Inspection: normal, 19:55 Cardiovascular: Rate: tachycardic, Rhythm: regular, Edema: ankle edema, that is very mild, JVD: is not appreciated, 19:55 Respiratory: the patient does not display signs of respiratory distress, Respirations: labored breathing, is not present, intercostal retractions, are absent, shallow respirations, that is mild, Breath sounds: stridor, is not appreciated, wheezing: is not appreciated, 19:55 Abdomen/GI: Inspection: abdomen appears normal, Bowel sounds: active, all quadrants, Palpation: abdomen is soft and non-tender, in all quadrants, 19:55 Back: pain, that is severe, ROM is painful, with all movement, 19:55 Skin: cellulitis, is not appreciated, no rash present. 19:55 Neuro: Orientation: to person, place \T\ time. Mentation: is normal, Motor: moves all fours, no focal deficits, Sensation: no obvious gross deficits, Vital Signs: 19:32 BP 159 / 118; Pulse 131; Resp 20; Temp 98.4(O); Pulse Ox 99% ; Weight 83.91 kg; Height me1 5 ft. 3 in. ; Pain 10/10; 20:00 BP 150 / 107; Pulse 131; Resp 20; Pulse Ox 100% on R/A; me1 21:00 BP 134 / 94; Pulse 120; Resp 18; Pulse Ox 96% on R/A; me1 21:34 Pain 7/10; me1 22:00 BP 142 / 100; Pulse 115; Resp 20; Pulse Ox 97% on R/A; me1 23:00 BP 142 / 102; Pulse 112; Resp 20; Pulse Ox 97% on R/A; me1 23:30 BP 146 / 94; Pulse 115; Resp 19; Pulse Ox 98% on R/A; me1 10/31 02:19 BP 100 / 83; Pulse 84; Resp 18; Pulse Ox 99% on R/A; Pain 7/10; cm10 10/30 19:32 Body Mass Index 32.77 (83.91 kg, 160.02 cm) il1 10/30 19:32 Pain Scale: Adult me1 21:34 Pain Scale: Adult me1 10/31 02:19 Pain Scale: Adult cm10 MDM: 10/30 19:44 Patient medically screened. cp 10/31 01:48 Data reviewed: vital signs, nurses notes, lab test result(s), EKG, radiologic studies, cp CT scan, plain films. 01:48 Consideration of Admission/Observation Escalation of care including cp admission/observation considered. I considered the following discharge prescriptions or medication management in the emergency department Medications were administered in the Emergency Department. See MAR. Independent interpretation of the following test(s) in the Emergency Department EKG: See my EKG interpretation above. Care significantly affected by the following chronic conditions: Congestive Heart Failure, Chronic Obstructive Pulmonary Disease. Counseling: I had a detailed discussion with the patient and/or guardian regarding the historical points, exam findings, and any diagnostic results supporting the discharge/admit diagnosis, lab results, radiology results, to return to the emergency department if symptoms worsen or persist or if there are any questions or concerns that arise at home. Response to treatment: the patient's symptoms have markedly improved after treatment, and as a result, I will discharge patient. Special discussion: Based on the patient's history, exam, and Dx evaluation, there is no indication for emergent intervention or inpatient Tx. It is understood by the patient/guardian that if the Sx's persist or worsen they need to return immediately for re-evaluation. ED course: Initial and repeat troponin wnl, ekg similar to previous. Will discharge to home for continued monitoring. 10/30 19:50 Order name: Basic Metabolic Panel; Complete Time: 22:24 cp 10/31 00:07 Interpretation: Normal except: CL 108; GLUC 109; CA 8.4. cp 10/30 19:50 Order name: CBC with Diff; Complete Time: 22:24 cp 10/31 00:07 Interpretation: Normal except: HGB 10.8; HCT 34.6; MCH 25.1; MCHC 31.1; PLT 417; RDW cp 21.4; MPV 6.8. 10/30 19:50 Order name: LFT's; Complete Time: 22:24 cp 10/30 19:50 Order name: Magnesium; Complete Time: 22:24 cp 10/30 19:50 Order name: NT PRO-BNP; Complete Time: 22:24 cp 10/31 00:08 Interpretation: Reviewed. cp 10/30 19:50 Order name: PT-INR; Complete Time: 21:01 cp 10/30 19:50 Order name: Troponin HS; Complete Time: 22:24 cp 10/31 00:08 Interpretation: Reviewed. cp 10/30 19:59 Order name: Urinalysis W/Microscopic; Complete Time: 22:24 cp 10/30 22:24 Interpretation: Reviewed. cp 10/30 19:59 Order name: UDS; Complete Time: 22:24 cp 10/30 20:59 Order name: CBC Smear Scan; Complete Time: 22:24 EDMS 10/31 00:07 Order name: Troponin HS; Complete Time: 01:37 cp 10/30 19:50 Order name: XRAY Chest (1 view); Complete Time: 21:01 cp 10/30 21:01 Interpretation: Report review. cp 10/30 22:25 Order name: CT Chest Abdomen Pelvis W/O Contrast cp 10/30 19:50 Order name: EKG; Complete Time: 19:50 cp 10/30 19:50 Order name: Cardiac monitoring; Complete Time: 19:50 cp 10/30 19:50 Order name: EKG - Nurse/Tech; Complete Time: 19:50 cp 10/30 19:50 Order name: IV Saline Lock; Complete Time: 20:32 cp 10/30 19:50 Order name: Labs collected and sent; Complete Time: 20:32 cp 10/30 19:50 Order name: O2 Per Protocol; Complete Time: 19:51 cp 10/30 19:50 Order name: O2 Sat Monitoring; Complete Time: 19:51 cp EC/13 19:50 Rate is 128 beats/min. Rhythm is regular. WI interval is normal. QRS interval is cp normal. QT interval is normal. Interpreted by me. Reviewed by me. Administered Medications: 21:00 Drug: HYDROmorphone IVP 1 mg IVP once Route: IVP; Site: right forearm; me1 21:34 Follow up: Pain 01/26 Adult; Response: No adverse reaction; Pain is decreased me1 23:08 CANCELLED (Physician Discretion): pnbcgveimp02 mg PO once cp 23:36 Drug: Metoprolol PO 50 mg PO once Route: PO; me1 10/31 02:21 Follow up: Response: No adverse reaction cm10 00:35 Drug: HYDROmorphone IVP 1 mg IVP once Route: IVP; Site: right wrist; cm10 02:21 Follow up: Response: No adverse reaction cm10 00:35 Drug: Promethazine IVP 25 mg IVP once Route: IVP; Site: right wrist; cm10 02:21 Follow up: Response: No adverse reaction cm10 Disposition Summary: 11/01/23 01:48 Discharge Ordered Notes: Location: Home cp Problem: new cp Symptoms: have improved cp Condition: Stable cp Diagnosis - Chest pain, unspecified cp - Dorsalgia, unspecified cp - Fall on same level, unspecified cp Followup: cp - With: Private Physician - When: 1 - 2 days - Reason: Recheck today's complaints Discharge Instructions: - Discharge Summary Sheet cp - Acute Back Pain, Adult cp - Nonspecific Chest Pain, Adult cp - Fall Prevention in the Home, Adult cp Forms: - Medication Reconciliation Form cp - Thank You Letter cp - Antibiotic Education cp - Prescription Opioid Use cp - Patient Portal Instructions cp - Leadership Thank You Letter cp Addendum: 11/02/2023 09:41 I was immediately available for consultation during this patient's visit. I did not e c2 personally see the patient or discuss the patient with the NOHELIA. . Signatures: Dispatcher [employer] EDMS Derrick Castillo PA PA cp Deejay Watt, RN RN Maile Arroyo, BETH RN cm10 Frieda Boyd RN RN me1 Andrea Pizano MD MD ec2 Corrections: (The following items were deleted from the chart) 10/30 19:51 19:50 BASIC METABOLIC PANEL+C.LAB.BRZ ordered. EDMS EDMS 19:51 19:50 CBC+H.LAB.BRZ ordered. EDMS EDMS 19:51 19:50 HEPATIC FUNCTION+C.LAB.BRZ ordered. EDMS EDMS 19:51 19:50 MAGNESIUM+C.LAB.BRZ ordered. EDMS EDMS 19:51 19:50 PROBNP+C.LAB.BRZ ordered. EDMS EDMS 19:51 19:50 PROTIME (+INR)+COAG.LAB.BRZ ordered. EDMS EDMS 19:51 19:50 Troponin High Sensitivity+C.LAB.BRZ ordered. EDMS EDMS 23:08 23:07 Metoprolol PO 25 mg PO once ordered. cp cp 10/31 00:24 00:15 POTASSIUM+C.LAB.BRZ ordered. EDMS EDMS 01:14 01:14 Potassium ordered. EDMS EDMS
--- NOTE | 2023-11-01 01:48 | ER ---
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 fell on the ground by the knees yesterday, denies head injury, complaining of generalized pain. Coronavirus screen: At this time, the client does not indicate any symptoms associated with coronavirus-19. Ebola Screen: No symptoms or risks identified at this time. Initial Sepsis Screen: Does the patient meet any 2 criteria? No. Patient's initial sepsis screen is negative. Does the patient have a suspected source of infection? No. Patient's initial sepsis screen is negative. Risk Assessment: Do you want to hurt yourself or someone else? Patient reports no desire to harm self or others. Onset of symptoms was October 31, 2023. 19:46 Method Of Arrival: EMS: [facility] rv 19:46 Acuity: ANDER 2 rv Triage Assessment: 19:47 General: Appears unkempt, Behavior is anxious. Pain: Complains of pain in chest. Neuro: rv Level of Consciousness is awake, alert, obeys commands, Oriented to person, place, time, situation. Cardiovascular: Reports chest pain, shortness of breath, Capillary refill < 3 seconds Patient's skin is warm and dry. Rhythm is sinus tachycardia. Respiratory: Airway is patent Respiratory effort is even, unlabored, Respiratory pattern is tachypnea Breath sounds are clear bilaterally. GI: No signs and/or symptoms were reported involving the gastrointestinal system. : No signs and/or symptoms were reported regarding the genitourinary system. Derm: Skin is intact. 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 - Infectious Disease History:: Denies. - Social history:: Smoking status: Patient reports the use of cigarette tobacco products, smokes one pack cigarettes per day. Screenin:49 [facility] ED Fall Risk Assessment (Adult) History of falling in the last 3 months, rv including since admission Yes- single mechanical fall (1 pt) Score/Fall Risk Level 3 or more points = High Risk Oriented to surroundings, Maintained a safe environment, Educated pt \T\ family on fall prevention, incl call for assistance when getting out of bed, Assessed \T\ reinforced patient's understanding of fall precautions. Abuse screen: Denies threats or abuse. Denies injuries from another. Nutritional screening: No deficits noted. Tuberculosis screening: No symptoms or risk factors identified. 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 fell on the ground by the knees yesterday, denies head injury, complaining of generalized pain. 19:45 Pain: Complains of pain in chest Pain does not radiate. Pain currently is 10 out of 10 me1 on a pain scale. Quality of pain is described as heavy, Pain began suddenly, Is continuous. Neuro: Level of Consciousness is awake, alert, obeys commands, Oriented to person, place, time, situation, Appropriate for age. Cardiovascular: Capillary refill < 3 seconds Patient's skin is warm and dry. Respiratory: Airway is patent Respiratory effort is even, unlabored, Respiratory pattern is regular, symmetrical. GI: No signs and/or symptoms were reported involving the gastrointestinal system. : No signs and/or symptoms were reported regarding the genitourinary system. Derm: Skin is intact, Skin is pink, warm \T\ dry. Musculoskeletal: Reports pain in back chronic. Injury Description: fell onto knees yesterday. 10/31 00:30 Reassessment: Assumed care of patient at this time. Pt currently complaining of back cm10 pain rated a 10/10 on pain scale. Pt also complaining of nausea. Pt A\T\Ox4, respirations even and unlabored. Updated pt on plan of care, call light in reach. General: Appears uncomfortable, Behavior is cooperative. Neuro: No deficits noted. Level of Consciousness is awake, alert, obeys commands, Oriented to person, place, time, situation. Respiratory: Airway is patent Respiratory effort is even, unlabored, Respiratory pattern is regular, symmetrical. GI: Reports nausea. : No deficits noted. No signs and/or symptoms were reported regarding the genitourinary system. Derm: No deficits noted. Skin is intact, Skin is pink, warm \T\ dry. Musculoskeletal: Range of motion: intact in all extremities, Reports pain in back. 00:51 Reassessment: Phlebotomy contacted to come draw repeat labs. cm10 02:00 Reassessment: Patient appears in no apparent distress at this time. Patient and/or cm10 family updated on plan of care and expected duration. Pain level reassessed. Patient is alert, oriented x 3, equal unlabored respirations, skin warm/dry/pink. 02:05 Reassessment: Pt awaiting transportation for discharge. cm10 Vital Signs: 10/30 19:32 BP 159 / 118; Pulse 131; Resp 20; Temp 98.4(O); Pulse Ox 99% ; Weight 83.91 kg; Height me1 5 ft. 3 in. ; Pain 10/10; 20:00 BP 150 / 107; Pulse 131; Resp 20; Pulse Ox 100% on R/A; me1 21:00 BP 134 / 94; Pulse 120; Resp 18; Pulse Ox 96% on R/A; me1 21:34 Pain 7/10; me1 22:00 BP 142 / 100; Pulse 115; Resp 20; Pulse Ox 97% on R/A; me1 23:00 BP 142 / 102; Pulse 112; Resp 20; Pulse Ox 97% on R/A; me1 23:30 BP 146 / 94; Pulse 115; Resp 19; Pulse Ox 98% on R/A; me1 10/31 02:19 BP 100 / 83; Pulse 84; Resp 18; Pulse Ox 99% on R/A; Pain 7/10; cm10 10/30 19:32 Body Mass Index 32.77 (83.91 kg, 160.02 cm) me1 10/30 19:32 Pain Scale: Adult me1 21:34 Pain Scale: Adult me1 10/31 02:19 Pain Scale: Adult cm10 ED Course: 10/30 19:41 Patient arrived in ED. mc5 19:44 Derrick Castillo PA is PHCP. cp 19:44 Andrea Pizano MD is Attending Physician. cp 19:44 Frieda Boyd, RN is Primary Nurse. me1 19:44 Provided Education on: POC. Verbalized understanding. . me1 19:47 Triage completed. rv 19:47 Arm band placed on right wrist. rv 19:49 Patient has correct armband on for positive identification. Client placed on continuous rv cardiac and pulse oximetry monitoring. NIBP monitoring applied. laboratory monitor on. 19:49 No provider procedures requiring assistance completed. rv 19:49 EKG done, by ED staff, reviewed by Derrick HURST. rv 20:12 XRAY Chest (1 view) In Process Unspecified. EDMS 20:32 Initial lab(s) drawn, by ma, sent to lab. Inserted saline lock: 22 gauge in right rv forearm, using aseptic technique. Blood collected. 20:32 Basic Metabolic Panel Sent. rv 20:32 CBC with Diff Sent. rv 20:32 LFT's Sent. rv 20:32 Magnesium Sent. rv 20:32 NT PRO-BNP Sent. rv 20:32 PT-INR Sent. rv 20:32 Troponin HS Sent. rv 20:53 Urine collected: clean catch specimen, cloudy. me1 20:53 Urinalysis W/Microscopic Sent. me1 20:53 UDS Sent. me1 23:19 CT Chest Abdomen Pelvis W/O Contrast In Process Unspecified. EDMS 10/31 00:30 Report received from BETH Malave. cm10 00:35 Primary Nurse role handed off by Frieda Boyd, BETH cm10 00:35 Maile Orellana, BETH is Primary Nurse. cm10 02:20 IV discontinued, intact, bleeding controlled, No redness/swelling at site. Pressure cm10 dressing applied. Administered Medications: 10/30 21:00 Drug: HYDROmorphone IVP 1 mg IVP once Route: IVP; Site: right forearm; me1 21:34 Follow up: Pain 7/10 Adult; Response: No adverse reaction; Pain is decreased me1 23:08 CANCELLED (Physician Discretion): [id number] mg PO once cp 23:36 Drug: Metoprolol PO 50 mg PO once Route: PO; me1 10/31 02:21 Follow up: Response: No adverse reaction cm10 00:35 Drug: HYDROmorphone IVP 1 mg IVP once Route: IVP; Site: right wrist; cm10 02:21 Follow up: Response: No adverse reaction cm10 00:35 Drug: Promethazine IVP 25 mg IVP once Route: IVP; Site: right wrist; cm10 02:21 Follow up: Response: No adverse reaction cm10 Medication: 10/30 19:49 VIS not applicable for this client. rv Outcome: 10/31 01:48 Discharge ordered by MD. cp 02:20 Discharged to home via wheelchair, with family, 10 02:20 Condition: good 02:20 Discharge instructions given to patient, Instructed on discharge instructions, follow up and referral plans. Demonstrated understanding of instructions, follow-up care, 02:29 Patient left the ED. 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 fell on the ground by the knees yesterday, denies head injury, complaining of generalized pain. 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 fell on the ground by the knees yesterday, denies head injury, complaining of generalized pain. me1
[2023-11-01 11:03] VITALS: BP 100/83; O2SAT 99
--- NOTE | 2023-11-03 22:16 | RAD REPORT ---
EXAM DESCRIPTION: CT - Chest Abd Pelvis Wo Con - 11/01/2023 7:12 am CLINICAL HISTORY: Fall TECHNIQUE: Contiguous axial images obtained through the chest , abdomen and pelvis following the une ventful administration of IV contrast. Coronal and sagittal reformatted images provided. This exam was performed according to our departmental dose-optimization program, which includes autom ated exposure control, adjustment of the mA and/or kV according to patient size and/or use of iterati ve reconstruction technique. COMPARISON: October 06, CT chest from June 2023 FINDINGS: Lungs: No focal consolidation. Airways are patent. Calcified granuloma in the left lung ap ex. Scattered pulmonary nodules are much smaller than the cavitary nodules seen on the prior examination and may represent sequela from septic emboli Atelectatic changes in the lung bases. Pleura: No effusion. No pneumothorax. Heart and pericardium: Mild cardiomegaly.. No pericardial effusion. Mediastinum and sree: Nonspecific mediastinal nodes. Lower neck and chest wall: Unremarkable Vessels: Unremarkable Bones: Unremarkable Liver: Unremarkable Gallbladder and biliary system: Status post cholecystectomy. Pancreas: Unremarkable Spleen: Unremarkable Adrenals: Stable left adrenal nodule consistent with benign adenoma Kidneys: No evidence of urolithiasis or obstructive uropathy. Gl : No obstruction. No appreciable mucosal thickening. Appendix: No findings to suggest acute appendicitis. Urinary bladder: Unremarkable Reproductive: Unremarkable as visualized Lymph nodes: No pathologically enlarged lymph nodes. Peritoneum: No focal fluid collection. No free air. Vessels: No abdominal aortic aneurysm. Abdominal wall: Unremarkable Bones: Unremarkable IMPRESSION: 1. No acute traumatic injury of the chest, abdomen, or pelvis. Evaluation limited by l ack of intravenous contrast. 2. Scattered pulmonary nodules are much smaller than the cavitary nodules seen on prior examination and may represent sequela from septic emboli. 3. Stable left adrenal nodule consistent with benign adenoma. Electronically signed by: Ryder Woods MD 11/01/2023 01:04 AM CDT Due to temporary technical issues with the PACS/Fluency reporting system, reports are being signed by the in house radiologists without review as a courtesy to insure prompt reporting. The interpreting radiologist is fully responsible for the content of the report.
== END 2023-11-01 02:29 | disposition home or self-care (01) ==
LOC: ER 19:37
DX: R07.9 Chest pain, unspecified (principal); M54.9 Dorsalgia, unspecified; W18.30XA Fall on same level, unspecified, initial encounter; I10 Essential (primary) hypertension; I50.9 Heart failure, unspecified; F17.210 Nicotine dependence, cigarettes, uncomplicated; Z88.8 Allergy status to other drugs, medicaments and biological substances; Z91.018 Allergy to other foods
CPT/HCPCS: 93005; 85025; 81001; 80048; 36415; 83735; 85610; 80076; 84484 ×2; 83880; 80307; 71250; 74176; 71045; 99285; J2550; J1170 ×2

== ENCOUNTER 2023-11-03 01:02 | Observation (INO) | payer OTHER ==
[2023-11-03] MEDS ORDERED: CEFTRIAXONE 1000 MG/VIAL ONE (01:29)
--- OUTSIDE RECORDS SUMMARY | 2023-11-03 01:29 | XMS REPORT | Continuity of Care Document ---
Author Name Unknown Address [address] [facility]. [address] thconnect Address 1200 [facility] 1 [address] [place] [address] Care Team Providers Care Practice Professional Name Role Phone Aneta Silva Primary Care Physician [phone] PANKAJ OBREGON Attending Clinician Un available AYDEE GO Attending Clinician Unavailable CARA BURGESS Attending Clinician Unavailab ADAM Cabrera Attending Clinician Unavailable THOMAS LOZOYA Attending Clinician Nina MARIAH Quiroga Attending Clinician Unavailable GUSTAVO DELANEY Attending Clinician Unavailable MYLA MIJARES Attending Clinician Unavailable EFRA BABCOCK Attending Clinician Un available SIDDHARTH STANFORD Attending Clinician Unavailекатреина GARRETT MD Attending Clinician Unavailab SHY Kelly Attending Clinician Unavailable SARAI JULES Attending Clinician Unavaila TIFFANY Rivera Attending Clinician Unavaila YONATAN Juarez Attending Clinician Unava radha Loyola MD, [place] Dixon Attending Clinician Nina lisa Obregon MD, Pankaj Bernal Attending Clinician Selin Fry DO Attending Clinician [phone] Nabil ELIZONDO, Selin Attending Clinician [phone] SELIN FERRER Attending Clinician Unavailable JUANY GREEN Attending Clinician Unavailable DEMETRIUS TOBAR Attending Clinician Unavailab KETAN Armenta Attending Clinician Unavail able Kael BLUEPRINT MAKER, Ketan Sanders Attending Clinician [phone] BRIAN BRYAN Attending Clinician Unavailable Brian Bryan DO Attending Clinician [phone] Jenifer ELIZONDO, Cara Hamilton Attending Clinician + [phone] Aydee Go MD Attending Clinician [phone] System, Provider Not In Attending Clinician Unav paulable Dallas Gomez Attending Clinician [phone] Adam Gracia MD Attending Clinician [phone] Harry Newsome MD Attending Clinician [phone] Rocael ELIZONDO, Antwon Mccrary Attending Clinician + [phone] Yue Bui MD Attending Clinician [phone] Connie Davey MD Attending Clinician [phone] Jasen ELIZNODO, Mariah Attending Clinician [phone] Valerio ELIZONDO, Thomas Hopkins Attending Clinician CONNIE DAVEY Attending Clinician UnavailAlfonso Oh Attending Clinician Unavailable Alfonso Lopez Lorelei Attending Clinician [phone] RITCHIE WARREN Attending Clinician Unavailable Briana ELIZONDO, Ritchie Stoner Attending Clinician [phone] Rk CAMPOS, Shy Stoner Attending Clinician [phone] ROXI, PARRISH CR Attending Clinician Unavaila gregory Mendoza MD, Halima Hummel Attending Clinician [phone] Lucho ELIZONDO, Jen Olivia Attending Clinician [phone] Roxi ELIZONDO, Parrish Reyez Attending Clinici an LORENZA LOWRY Attending Clinician Unavailable Alcon ELIZONDO, Sav Attending Clinician [phone] Essence ELIZONDO, Lorenza Attending Clinician [phone] Corey DUMONT, Maria Teresa Attending Clinician [phone] CHANTEL BOJORQUEZ Attending Clinician CHANTEL Kelly Attending Clinician Jack Ibrahim MD, Brandyn Otoole Attending Clinician [phone] SELINA MARTINES Attending Clinician Unavailable Sapna Vargas DO Attending Clinician [phone] Tyrel ELIZONDO, Glory Katz Attending Clinician + Selina Martines MD Attending Clinician [phone] Vaccine, Helmetta Pedi Attending Clinician U Jose Titus MD Attending Clinician [phone] JOSE PAK Attending Clinician Unavailable NICHELLE VIRK Attending Clinician Unavaila Nichelle Lakhani F Attending Clinician [phone] Doctor Unassigned, [place] Attending Clinician U chelsi Nava RN, Miky Attending Clinician Unavailab Fabrcie Jarrett Attending Clinician [phone] Lydia Eaton Attending Clinician [phone] Unknown, Attending Attending Clinician Unavailab le UNKNOWN, ATTENDING Attending Clinician Unavailab Anali Berg S Attending Clinician [phone] Yehuda Arcos MD Attending Clinician PANKAJ OBREGON Admitting Clinician Un available CARA BURGESS Admitting Clinician Unavailab ADAM Cabrera Admitting Clinician Unavailable MARIAH ALDRIDGE Admitting Clinician Unavailable CONNIE DAVEY Admitting Clinician UnavailAlfonso Oh Admitting Clinician Unavailable RITCHIE WARREN Admitting Clinician Unavailable JEN GELLER Admitting Clinician Unavaila LORENZA Mariscal Admitting Clinician Unavailable Lorenza Lowry MD Admitting Clinician [phone] BRANDYN IBRAHIM Admitting Clinician Unavailable Brandyn Ibrahim MD Admitting Clinician [phone] GLORY ESTEVES Admitting Clinician Unav ailable NICHELLE VIRK Admitting Clinician Unavaila ble Payers Payer Name Policy Type Policy Number Effective Date Expirati on Date Source [facility] [id number] 2023 00:00:00 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 [id number] 2023 00:00:00 [facility] CYNTHIARADHA [facility] COPAY FOCUS 9 [id number] 2023 00:00:00 [facility] [id number] 2023 00:00:00 MEDICAID PENDING PENDING 2022 00:00:00 [...] leg weakness Disease Active 2022-07 00:00: 00 [facility] Bilateral leg weakness Bilateral leg weakness Disease Active 2022-07 00:00: 00 [facility] Pneumonia Pneumonia Disease Active 2022-07 00:00: 00 [facility] Cavitary lesion of lung Cavitary lesion of lung Disease Active 2022-07 00:00: 00 [facility] Cervical myelopathy Cervical myelopathy Disease Recurre cte 2022-07 00:00: 00 [facility] Cervical disc disorder Cervical disc disorder Disease Active 2022-07 00:00: 00 [facility] Cord compressio n Cord compressio n Disease Recurre cte 2023-0 9-11 00:00: 00 [facility] Cauda equina compressio n Cauda equina compressio n Disease Active 9-11 00:00: 00 [facility] Seizure Seizure Disease Recurre nce 1-14 00:00: 00 [facility] Cardiomyop athy Cardiomyop athy Disease Active 1-13 00:00: 00 [facility] NSVT (nonsustai keisha ventricula r tachycardi a) NSVT (nonsustai keisha ventricula r tachycardi a) Disease Active 1- 00:00: 00 [facility] Chest pain, unspecifie d type Chest pain, unspecifie d type Disease Active 07-31 00:00: 00 [facility] Elevated brain natriureti c peptide (BNP) level Elevated brain natriureti c peptide (BNP) level Disease Active 07-31 00:00: 00 [facility] Coronary artery disease involving [place] coronary artery of [place] heart without angina pectoris Coronary artery disease involving [place] coronary artery of [place] heart without angina pectoris Disease Active 07-31 00:00: 00 [facility] Snores Snores Disease Active 07-31 00:00: 00 [facility] Cigarette smoker Cigarette smoker Disease Active 07-31 00:00: 00 [facility] Primary hypertensi on Primary hypertensi on Disease Active 07-31 00:00: 00 [facility] Other hyperlipid emia Other hyperlipid emia Disease Active 07-31 00:00: 00 [facility] Coronary artery disease involving [place] coronary artery of [place] heart without angina pectoris Coronary artery disease involving [place] coronary artery of [place] heart without angina pectoris Disease Active 12 00:00: 00 [facility] Chronic bilateral low back pain with bilateral sciatica Chronic bilateral low back pain with bilateral sciatica Disease Active 2021-07 0-17 00:00: 00 [facility] 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 Disease Active 04-15 00:00: 00 [facility] Neuroforam inal stenosis of cervical spine Neuroforam inal stenosis of cervical spine Disease Active 04-15 00:00: 00 [facility] Stroke-lik e symptoms Stroke-lik e symptoms Disease Active 04-13 00:00: 00 [facility] Bipolar disorder, in partial remission, most recent episode manic Bipolar disorder, in partial remission, most recent episode manic Disease Active 09-27 00:00: 00 [facility] Neuroforam inal stenosis of lumbar spine Neuroforam inal stenosis of lumbar spine Disease Active 09-27 00:00: 00 [facility] Bilateral acute otitis media, recurrence not specified, unspecifie d otitis media type Bilateral acute otitis media, recurrence not specified, unspecifie d otitis media type Disease Active 09-27 00:00: 00 [facility] Lumbar spinal stenosis Lumbar spinal stenosis Disease Active 09-27 00:00: 00 [facility] Right-side d low back pain with sciatica, sciatica laterality unspecifie d Right-side d low back pain with sciatica, sciatica laterality unspecifie d Disease Active 09-27 00:00: 00 [facility] Generalize d anxiety disorder Generalize d anxiety disorder Disease Active 09-27 00:00: 00 [facility] Agoraphobi a Agoraphobi a Disease Active 09-27 00:00: 00 [facility] Bipolar disorder, in partial remission, most recent episode manic Bipolar disorder, in partial remission, most recent episode manic Disease Active 09-27 00:00: 00 [facility] Obsessive compulsive disorder Obsessive compulsive disorder Disease Active 09-27 00:00: 00 [facility] Breast mass, left Breast mass, left Disease Active 09-17 00:00: 00 [facility] Anxiety Anxiety Disease Active 09-17 00:00: 00 [facility] Lower back pain Lower back pain Disease Active 09-17 00:00: 00 [facility] High blood pressure High blood pressure Disease Active 09-17 00:00: 00 [facility] COPD (chronic obstructiv e pulmonary disease) COPD (chronic obstructiv e pulmonary disease) Disease Active 09-17 00:00: 00 [facility] Obesity Obesity Disease Active 09-17 00:00: 00 [facility] Allergies, Adverse Reactions, Alerts Allergy Name Allergy Type Status Severity Reaction(s) Onset Date Inactive Date Treating Clinician Comments Source FLUOXETI NE Allergy Active 03-29 00:00: 00 [facility] GREEN TEA Allergy Active High Other 03-29 00:00: 00 [facility] LEVETIRA CETAM Allergy Active High N\\T\\V 03-29 00:00: 00 [facility] Fluoxeti ne Propensi ty to adverse reaction s Active 03-29 00:00: 00 [facility] Green Tea Propensi ty to adverse reaction s Active 03-29 00:00: 00 Seizure like activity [facility] Levetira cetam Propensi ty to adverse reaction s Active Nausea And Vomiting 03-29 00:00: 00 Intensifi es seizure [facility] Green Tea Drug Allergy Active Other (See Comments) 03-29 00:00: 00 Seizure like activity [facility] Levetira cetam Drug Allergy Active Nausea And Vomiting 03-29 00:00: 00 Intensifi es seizure [facility] Levetira cetam Propensi ty to adverse reaction s Active Other 11-17 00:00: 00 Intensifi es seizure Makes seizures worse Makes seizures worse Intensifi es seizure Cynthia Seybold - Externa l LEVETIRA CETAM DRUG INGREDI Active Other-Cmnt 11-17 00:00: 00 [facility] Levetira cetam Propensi ty to adverse reaction s Active Other - See comments 11-17 00:00: 00 Makes seizures worse [facility] Green Tea Propensi ty to adverse reaction s Active 08-02 00:00: 00 [facility] GREEN TEA Allergy Active 08-02 00:00: 00 [facility] FLUOXETI NE Allergy Active Med Rash 08-02 00:00: 00 [facility] Fluoxeti ne Propensi ty to adverse reaction s Active Rash 08-02 00:00: 00 Cynthia Seybold - Externa l Fluoxeti ne Propensi ty to adverse reaction s Active Unknown - See comments 03-25 00:00: 00 [facility] FLUOXETI NE DRUG INGREDI Active Unknown-Cmnt 03-25 00:00: 00 [facility] Diclofen ac Propensi ty to adverse reaction s Active Anxiety 11-20 00:00: 00 Cynthia Seybold - Externa l DICLOFEN AC DRUG INGREDI Active HYPERTENSION 11-20 00:00: 00 [facility] Green Tea Propensi ty to adverse reaction s Active Anxiety 08-10 00:00: 00 Seizure like activity Seizures Seizures Seizure like activity Cynthia Bedoyaold - Externa l GREEN TEA DRUG INGREDI Active Med Other-Cmnt 08-10 00:00: 00 [facility] Green Tea Propensi ty to adverse reaction s to drug Active Other - See comments 08-10 00:00: 00 Seizures [facility] FLUOXETI NE HCL DRUG INGREDI Active Hives 0 03-19 00:00: 00 [facility] Fluoxeti ne Hcl Propensi ty to adverse reaction s Active Hives 03-19 00:00: 00 [facility] Family History Family Member Diagnosis Comments Start Date Stop Date Sourc e Natural mother Alcohol abuse [facility] Natural mother Cancer [facility] Natural mother Diabetes [facility] Natural mother Heart disease [facility] Natural mother Hyperlipidemia [facility] Natural mother Kidney disease [facility] Natural mother Stroke [facility] Natural mother Alcohol abuse [facility] Natural mother Stroke [facility] Paternal uncle Diabetes [facility] Social History Social Habit Start Date Stop Date Quantity Comments Source History SDOH Social Connections Get Together [facility] History SDOH Social Connections [facility] History SDOH Social Connections Membership [facility] History SDOH Social Connections Meetings [facility] Sexual orientation Alfonso Garcia - External History of tobacco use Cigarette Smoker Cynthia boyd - External History SDOH Alcohol Frequency [facility] History SDOH Alcohol Std Drinks [facility] History SDOH Alcohol Binge [facility] History SDOH Housing Homeless Last Year [facility] Tobacco use and exposure 2023-09-30 00:00:00 [...] (event) 2023-05-18 00:00:00 2023-05-28 07:28:00 Not sure [facility] History SDOH Housing Unable to Pay - In the last 12 months, was there a time when you were not able to pay the mortgage or rent on time? 2023-05-26 00:00:00 2023-05-26 00:00:00 Yes [facility] History SDOH Housing Places Lived 2023-03-30 00:00:00 2023-03-30 00:00:00 1 [facility] Alcohol Comment 2023-03-29 00:00:00 2023-03-29 00:00:00 2x a week [facility] History SDOH Social Connections Phone 2022-08-01 00:00:00 2022-08-01 00:00:00 5 [facility] History SDOH Social Connections Living 2022-08-01 00:00:00 2022-08-01 00:00:00 5 [facility] History SDOH Physical Activity DPW 2022-08-01 00:00:00 2022-08-01 00:00:00 0 [facility] History SDOH Physical Activity MPS 2022-08-01 00:00:00 2022-08-01 00:00:00 0 [facility] History SDOH Financial 2022-08-01 00:00:00 2022-08-01 00:00:00 3 [facility] History SDOH Food Worry 2022-08-01 00:00:00 2022-08-01 00:00:00 1 [facility] History SDOH Food Scarcity 2022-08-01 00:00:00 2022-08-01 00:00:00 1 [facility] History SDOH Transport Med 2022-08-01 00:00:00 2022-08-01 00:00:00 2 [facility] History SDOH Transport Non-Med 2022-08-01 00:00:00 2022-08-01 00:00:00 2 [facility] Sex Assigned At 1970 00:00:00 1970 00:00:00 Cynthia Garcia - [place] Smoking Status Start Date Stop Date Source Smokes tobacco daily 2023-09-30 00:00:00 Cynthia Guillen Never smoked tobacco Cynthia Guillen Ex-smoker 2023-05-26 00:00:00 2023-05-26 00:00:00 [facility] Medications Ordered Medication Name Filled Medication Name Start Date Stop Date Current Medication? Ordering Clinician Indication Dosage Frequency Signature (SIG) Comments Components Source Metformin HCl 500 MG oral Tablet 09-29 14:28: 11 Yes 500mg Take 1 tablet (500 mg total) by mouth daily (with breakfast) . Cynthia gonzalez Ibuprofen (MOTRIN) 200 MG oral Tablet 09-29 14:27: 32 09-29 00:00 :00 No 200mg Q.[id number] 3D Take 1 tablet (200 mg total) by mouth every 8 hours as needed for pain. Cynthia gonzalez Fluticasone -Umeclidin- Vilant (Trelegy Ellipta) 100-62.5-25 MCG/ACT inhalation AEROSOL POWDER, BREATH ACTIVATED 09-29 00:00: 00 Yes [id number] 1{puff} Inhale 1 puff into the lungs daily. Cynthia gonzalez Carvedilol 12.5 MG oral Tablet 09-29 00:00: 00 Yes [id number] 12.5mg Take 1 tablet (12.5 mg total) by mouth in the morning and 1 tablet (12.5 mg total) in the evening. Take with meals. Cynthia gonzalez Duloxetine HCl [address] Particles 09-29 00:00: 00 Yes [id number] 20mg Take 1 capsule (20 mg total) by mouth daily. Cynthia gonzalez Acetaminoph en-Codeine (TYLENOL/CO DEINE #3) 300-30 MG oral Tablet 09-29 00:00: 00 Yes [id number] 1{tbl} Q.25D Take 1 tablet by mouth every 6 hours as needed for pain. Cynthia gonzalez Clonazepam 1 MG oral Tablet 09-29 00:00: 00 Yes [id number] 1mg QD Take 1 tablet (1 mg [...] MG oral Tablet 09-11 00:00: 00 Yes [id number] 15mg QD Take 1 tablet (15 mg total) by mouth nightly as needed. Cynthia gonzalez Acetaminoph en-Codeine (TYLENOL/CO DEINE #3) 300-30 MG oral Tablet 09-11 00:00: 00 09-29 00:00 :00 No [id number] 1{tbl} Q.25D Take 1 tablet by mouth every 6 hours as needed for pain. Cynthia gonzalez DULoxetine (CYMBALTA) 60 MG capsule 09-09 00:00: 00 10-08 23:59 :00 Yes 60mg QD Take 1 capsule (60 mg total) by mouth daily for 30 days. [facility] varenicline (CHANTIX) 1 mg tablet 09-08 10:51: 03 Yes 1mg Q.5D Take 1 tablet (1 mg total) by mouth 2 (two) times daily Give with meals and with a full glass of water.. [facility] atorvastati n (LIPITOR) 20 MG tablet 09-08 10:51: 03 Yes 20mg QD Take 1 tablet (20 mg total) by mouth daily. [facility] Cyanocobala min (Vitamin B-12) 1000 MCG oral Tablet 09-08 00:00: 00 10-08 04:59 :00 Yes 1000ug Take 1 tablet (1,000 mcg total) by mouth daily. Cynthia gonzalez lidocaine (LIDODERM) 4 % patch 09-08 00:00: 00 10-07 23:59 :00 Yes 3{patch } Q24H Place 3 patches onto the skin daily for 30 days. [facility] metoprolol succinate (TOPROL-XL) 25 MG 24 hr tablet 09-07 16:47: 05 09-07 00:00 :00 No 25mg QD Take 1 tablet (25 mg total) by mouth daily. [facility] albuterol HFA (VENTOLIN HFA) 90 mcg/actuati on inhaler 09-07 16:47: 05 09-07 00:00 :00 No 1{puff} Inhale 1 puff by mouth via inhaler every 6 (six) hours as needed for Wheezing. [facility] fluticasone -umeclidin- vilanter (Trelegy Ellipta) 200-62.5-25 mcg DsDv 09-07 16:47: 05 09-07 00:00 :00 No QD Inhale by mouth via inhaler daily. [facility] Albuterol HFA 108 (90 Base) MCG/ACT [...] total) by mouth daily for 30 days. [facility] polyethylen e glycol (GLYCOLAX) 17 gram packet 09-07 00:00: 00 10-06 23:59 :00 Yes 17g Q.5D Take 17 g by mouth 2 (two) times daily for 30 days. [facility] gabapentin (NEURONTIN) 400 MG capsule 09-07 00:00: 00 10-06 23:59 :00 Yes 400mg Q.[id number] 3D Take 1 capsule (400 mg total) by mouth 3 (three) times daily for 30 days. [facility] furosemide (LASIX) 20 MG tablet 09-07 00:00: 00 10-06 23:59 :00 Yes 20mg QD Take 1 tablet (20 mg total) by mouth daily for 30 days. [facility] fluticasone -umeclidin- vilanter (Trelegy Ellipta) 200-62.5-25 mcg DsDv - 00:00: 00 10-06 23:59 :00 Yes 1{inhal ation} QD Inhale 1 Inhalation by mouth via inhaler daily for 30 days. [facility] metoprolol succinate (TOPROL-XL) 25 MG 24 hr tablet 09-07 00:00: 00 10-06 23:59 :00 Yes 25mg QD Take 1 tablet (25 mg total) by mouth daily for 30 days. [facility] lacosamide (VIMPAT) 100 mg in NaCl 0.9% (NS) 50 mL piggyback 08-12 21:15: 00 08-12 21:23 :00 No 100mg 100 mg, IV Piggyback, ONCE, 1 dose, On Thu08/12/23 at 1515, Administer over 30 Minutes, 50 mL
Facu lty member approving Restricted medication : BRIAN BRYAN [facility] Dicyclomine HCl 20 MG oral Tablet [...] total) by mouth daily for 5 days. [facility] metoprolol succinate (TOPROL-XL) 25 MG 24 hr tablet 2022-07 19:45: 32 Yes 25mg QD Take 1 tablet (25 mg total) by mouth daily. [facility] varenicline (CHANTIX) 1 mg tablet 2022-07 19:45: 32 Yes 1mg Q.5D Take 1 tablet (1 mg total) by mouth 2 (two) times daily Give with meals and with a full glass of water.. [facility] albuterol HFA (VENTOLIN HFA) 90 mcg/actuati on inhaler 2022-07 19:45: 32 Yes 1{puff} Inhale 1 puff by mouth via inhaler every 6 (six) hours as needed for Wheezing. [facility] fluticasone -umeclidin- vilanter (Trelegy Ellipta) 200-62.5-25 mcg DsDv 2022-07 19:45: 32 Yes QD Inhale by mouth via inhaler daily. [facility] atorvastati n (LIPITOR) 20 MG tablet 2022-07 19:45: 32 Yes 20mg QD Take 1 tablet (20 mg total) by mouth daily. [facility] acetaminoph en-codeine (TYLENOL #3) 300-30 mg per tablet 2022-07 18:02: 00 06-16 00:00 :00 No 1{tbl} Take 1 tablet by mouth every 4 (four) hours as needed for Pain. [facility] DULoxetine (CYMBALTA) 30 MG capsule 2022-07 00:00: 00 09-08 00:00 :00 No 30mg QD Take 1 capsule (30 mg total) by mouth daily for 90 days. [facility] metroNIDAZO LE (FLAGYL) 500 MG tablet 2022-07 00:00: 00 07-04 23:59 :00 No 500mg Take 1 tablet (500 mg total) by mouth every 8 (eight) hours for 18 days. [facility] ciprofloxac in HCl (CIPRO) 500 MG tablet 2022-07 00:00: 00 07-04 23:59 :00 No 500mg Q.5D Take 1 tablet (500 mg total) by mouth 2 (two) times daily for 18 days. [facility] cyclobenzap rine (FLEXERIL) 10 MG tablet 2022-07 00:00: 00 06-26 23:59 :00 No 10mg Q.[id number] 3D Take 1 tablet (10 mg total) by mouth 3 (three) times daily for 10 days. [facility] oxyCODONE (OXY-IR) 10 mg tablet 2022-07 00:00: 00 06-26 23:59 :00 No 10mg Take 1 tablet (10 mg total) by mouth every 8 (eight) hours as needed for up to 10 days. Max Daily Amount: 30 mg [facility] nystatin (MYCOSTATIN ) 100,000 unit/mL suspension 2022-07 00:00: 00 06-21 23:59 :00 No [id number] Q.25D Take 5 mLs (500,000 Units total) by mouth 4 (four) times daily for 5 days. [facility] dexAMETHaso ne (DECADRON) 2 MG tablet 2022-07 00:00: 00 06-08 23:59 :00 No 1mg Take 0.5 tablets (1 mg total) by mouth 2 (two) times daily with breakfast and dinner for 2 days. [facility] dexAMETHaso ne (DECADRON) 2 MG tablet 2022-07 00:00: 00 06-06 23:59 :00 No 2mg Take 1 tablet (2 mg total) by mouth 2 (two) times daily with breakfast and dinner for 1 day. [facility] metoprolol succinate (TOPROL-XL) 25 MG 24 hr tablet 2022-07 17:44: 21 Yes 25mg QD Take 1 tablet (25 mg total) by mouth daily. [facility] varenicline (CHANTIX) 1 mg tablet 2022-07 17:44: 21 Yes 1mg Q.5D Take 1 tablet (1 mg total) by mouth 2 (two) times daily Give with meals and with a full glass of water.. [facility] albuterol HFA (VENTOLIN HFA) 90 mcg/actuati on inhaler 2022-07 17:44: 21 Yes 1{puff} Inhale 1 puff by mouth via inhaler every 6 (six) hours as needed for Wheezing. [facility] fluticasone -umeclidin- vilanter (Trelegy Ellipta) 200-62.5-25 mcg DsDv 2022-07 17:44: 21 Yes QD Inhale by mouth via inhaler daily. [facility] atorvastati n (LIPITOR) 20 MG tablet 2022-07 17:44: 21 Yes 20mg QD Take 1 tablet (20 mg total) by mouth daily. [facility] acetaminoph en-codeine (TYLENOL #3) 300-30 mg per tablet 2022-07 17:44: 21 Yes 1{tbl} Take 1 tablet by mouth every 4 (four) hours as needed for Pain. [facility] Naloxone (NARCAN) 4 MG/0.1ML nasal Liquid 2022-07 00:00: 00 Yes 4mg 0.1 mL (4 mg total) as needed. Cynthia gonzalez senna (SENOKOT) 8.6 mg tablet 2022-07 00:00: 00 06-18 23:59 :00 No 17.2mg Q.5D Take 2 tablets (17.2 mg total) by mouth 2 (two) times daily for 14 days. [facility] cyclobenzap rine (FLEXERIL) 10 MG tablet 2022-07 00:00: 00 06-16 00:00 :00 No 10mg Q.[id number] 3D Take 1 tablet (10 mg total) by mouth 3 (three) times daily for 10 days. [facility] methocarbam oL (ROBAXIN) 500 MG tablet 2022-07 00:00: 00 06-16 00:00 :00 No 500mg Q.25D Take 1 tablet (500 mg total) by mouth 4 (four) times daily for 10 days. [facility] lactulose (CHRONULAC) 20 gram/30 mL solution 2022-07 00:00: 00 06-11 23:59 :00 No 20g [id number] 3D Take 30 mLs (20 g total) by mouth 3 (three) times daily for 7 days. [facility] ondansetron (ZOFRAN-ODT ) 4 MG disintegrat ing tablet 2022-07 00:00: 00 2023- 11-23 23:59 :00 No 4mg Take 1 tablet (4 mg total) by mouth every 6 (six) hours as needed for up to 7 days. [facility] metoprolol succinate (TOPROL-XL) 25 MG 24 hr tablet 2022-07 15:23: 22 Yes 25mg QD Take 1 tablet (25 mg total) by mouth daily. [facility] varenicline (CHANTIX) 1 mg tablet 2022-07 15:23: 22 Yes 1mg Q.5D Take 1 tablet (1 mg total) by mouth 2 (two) times daily Give with meals and with a full glass of water.. [facility] albuterol HFA (VENTOLIN HFA) 90 mcg/actuati on inhaler 2022-07 15:23: 22 Yes 1{puff} Inhale 1 puff by mouth via inhaler every 6 (six) hours as needed for Wheezing. [facility] fluticasone -umeclidin- vilanter (Trelegy Ellipta) 200-62.5-25 mcg DsDv 2022-07 15:23: 22 Yes QD Inhale by mouth via inhaler daily. [facility] atorvastati n (LIPITOR) 20 MG tablet 2022-07 15:23: 22 Yes 20mg QD Take 1 tablet (20 mg total) by mouth daily. [facility] acetaminoph en-codeine (TYLENOL #3) 300-30 mg per tablet 2022-07 15:23: 22 Yes 1{tbl} Take 1 tablet by mouth every 4 (four) hours as needed for Pain. [facility] acetaminoph en-codeine (TYLENOL #3) 300-30 mg per tablet 2022-07 09:42: 02 Yes 1{tbl} Take 1 tablet by mouth every 4 (four) hours as needed for Pain. Max Daily Amount: 6 tablets [facility] varenicline (CHANTIX) 1 mg tablet 2022-07 09:40: 04 Yes 1mg Q.5D Take 1 tablet (1 mg total) by mouth 2 (two) times daily Give with meals and with a full glass of water.. [facility] albuterol HFA (VENTOLIN HFA) 90 mcg/actuati on inhaler 2022-07 09:40: 04 Yes 1{puff} Inhale 1 puff by mouth via inhaler every 6 (six) hours as needed for Wheezing. [facility] fluticasone -umeclidin- vilanter (Trelegy Ellipta) 200-62.5-25 mcg DsDv 2022-07 09:40: 04 Yes QD Inhale by mouth via inhaler daily. [facility] atorvastati n (LIPITOR) 20 MG tablet 2022-07 09:40: 04 Yes 20mg QD Take 1 tablet (20 mg total) by mouth daily. [facility] metoprolol succinate (TOPROL-XL) 25 MG 24 hr tablet 2022-07 09:13: 28 Yes 25mg QD Take 1 tablet (25 mg total) by mouth daily. [facility] Metoprolol Succinate 25 MG oral TABLET [...] .4mg 1 tablet (0.4 mg total). Cynthia Erazoa lisa Furosemide 40 MG oral Tablet 2022-07 00:00: 00 Yes 40mg 1 tablet (40 mg total). Cynthia Santoyo Externa lisa Aspirin 81 MG oral Chewable Tablet 2022-07 0 00:00: 00 Yes 81mg 1 tablet (81 mg total). Cynthia Erazoa lisa Fluticasone -Umeclidin- Vilant (Trelegy Ellipta) 100-62.5-25 MCG/ACT [...] tablet (20 mg total) by mouth daily. [facility] aspirin 81 MG EC tablet 04-03 00:00: 00 07-02 23:59 :00 No 81mg QD Take 1 tablet (81 mg total) by mouth daily for 90 days. [facility] divalproex (DEPAKOTE) 500 MG EC tablet 04-03 00:00: 00 07-02 23:59 :00 No 500mg Q.5D Take 1 tablet (500 mg total) by mouth 2 (two) times daily for 90 days. [facility] lisinopriL (PRINIVIL,Z ESTRIL) 5 MG tablet 04-03 00:00: 00 05-28 00:00 :00 No 5mg QD Take 1 tablet (5 mg total) by mouth daily. [facility] clonazePAM (KlonoPIN) 0.5 MG tablet 04-03 00:00: 00 05-03 23:59 :00 No .25mg Take 0.5 tablets (0.25 mg total) by mouth 2 (two) times daily as needed for Anxiety for up to 30 days. Max Daily Amount: 0.5 mg [facility] HYDROcodone -acetaminop hen (NORCO 10-325) 10-325 mg per tablet 04-03 00:00: 00 04-13 23:59 :00 No 1{tbl} Take 1 tablet by mouth every 6 (six) hours as needed for up to 10 days. Max Daily Amount: 4 tablets [facility] methocarbam oL (ROBAXIN) 500 MG tablet 04-03 00:00: 00 04-13 23:59 :00 No 500mg Q.25D Take 1 tablet (500 mg total) by mouth 4 (four) times daily for 10 days. [facility] gabapentin (NEURONTIN) 300 MG capsule 04-02 00:00: 00 04-03 00:00 :00 No 300mg [id number] 3D Take 1 capsule (300 mg total) by mouth 3 (three) times daily for 90 days. [facility] divalproex (DEPAKOTE) 500 MG EC tablet 04-02 00:00: 00 04-03 00:00 :00 No 500mg Q.5D Take 1 tablet (500 mg total) by mouth 2 (two) times daily for 90 days. [facility] clonazePAM (KlonoPIN) 0.5 MG tablet 04-02 00:00: 00 04-03 00:00 :00 No .25mg Take 0.5 tablets (0.25 mg total) by mouth 2 (two) times daily as needed for Anxiety for up to 30 days. Max Daily Amount: 0.5 mg [facility] HYDROcodone -acetaminop hen (NORCO 10-325) 10-325 mg per tablet 04-02 00:00: 00 04-03 00:00 :00 No 1{tbl} Take 1 tablet by mouth every 6 (six) hours as needed for up to 10 days. Max Daily Amount: 4 tablets [facility] methocarbam oL (ROBAXIN) 500 MG tablet 04-02 00:00: 00 04-03 00:00 :00 No 500mg Q.25D Take 1 tablet (500 mg total) by mouth 4 (four) times daily for 10 days. [facility] Metronidazo le 500 MG oral Tablet [...] member approving Restricted medication : Alfonso ALVARADO [facility] ketorolac (TORADOL) injection 15 mg 12-11 18:15: 00 12-11 17:25 :00 No 15mg 15 mg, Slow IV Push, ONCE, 1 dose, On Thu12/11/22 at 1315, [facility] iopamidol (ISOVUE 370-500 mL) injection 80 mL 12-11 16:30: 00 12-11 16:27 :00 No [id number] 80mL 80 mL, Intravenou s, ONCE, 1 dose, On Thu12/11/22 at 1130, Routine [facility] nitroglycer in (NITROL) 2 % ointment 0.5 Inch 12-11 15:30: 00 12-11 14:31 :00 No .5[in_u s] 0.5 Inch, Transderma l (Apply To Skin), ONCE, 1 dose, [facility] 12[facility]11/22 [facility] 1030[facility] 324 mg 12-11 15:30: 00 12-11 14:30 :00 No 324mg 324 mg, Oral, ONCE, 1 dose, On Thu12/11/22 at 1030, Routine [facility] ondansetron (ZOFRAN (PF)) injection 4 mg 12-11 15:30: 00 12-11 14:29 :00 No 4mg 4 mg, Slow IV Push, ONCE, 1 dose, [facility] Thu12/11/22 at 1030, [facility] LOR[facility] (ATIVAN) injection 1 mg 12-11 15:00: 00 12-11 14:57 :00 No 1mg 1 mg, Slow IV Push, ONCE, 1 dose, On Thu12/11/22 at 1000, STAT [facility] Lacosamide (VIMPAT) 100 mg tablet 12-11 00:00: 00 Yes [id number] 100mg Take 1 tablet by mouth in the morning and 1 tablet in the evening. [facility] acetaminoph en-codeine (TYLENOL #3) 300-30 mg tablet 1 tablet 11-18 05:30: 00 11-18 05:30 :00 No 1{tbl} 1 tablet, Oral, ONCE, 1 dose, On Thu11/18/22 at 0030, [facility] methocarbam oL (ROBAXIN) tablet 1,000 mg 11-18 05:30: 00 11-18 05:30 :00 No 1000mg 1,000 mg, Oral, ONCE, 1 dose, On Thu11/18/22 at 0030, [facility] ondansetron (ZOFRAN (PF)) injection 4 mg 11-18 04:45: 00 11-18 03:38 :00 No 4mg 4 mg, Slow IV Push, ONCE, 1 dose, On Thu11/17/22 at 2345, [facility] morpHINE (4 mg/mL) injection 4 mg 11-18 03:45: 00 11-18 03:38 :00 No 4mg 4 mg, Slow IV Push, ONCE, 1 dose, On Thu11/17/22 at 2245, Routine [facility] methocarbam oL (ROBAXIN) injection 1,000 mg 11-18 00:30: 00 11-17 23:47 :00 No 1000mg 1,000 mg, Intravenou s, ONCE, 1 dose, On Thu11/17/22 at 1930, MICHAEL [facility] methocarbam oL 500 mg tablet 11-18 00:00: 00 Yes [id number] 1000mg Take 2 tablets by mouth 4 (four) times daily as needed for Pain (scale 7-10). [facility] acetaminoph en-codeine 300-60 mg tablet 11-18 00:00: 00 11-26 04:59 :00 No [id number] 1{tbl} Take 1 tablet by mouth every 6 (six) hours as needed for Pain for up to 7 days. Indication s: acute pain [facility] ketorolac (TORADOL) injection 15 mg 11-18 00:00: 00 11-17 23:08 :00 No 15mg 15 mg, Slow IV Push, ONCE, 1 dose, On Thu11/17/22 at 1900, Routine [facility] morpHINE (4 mg/mL) injection 4 mg 11-17 23:45: 00 11-17 23:49 :00 No 4mg 4 mg, Slow IV Push, ONCE, 1 dose, On Thu11/17/22 at 1845, Routine [facility] ondansetron (ZOFRAN (PF)) injection 4 mg 11-17 23:15: 00 11-17 23:06 :00 No 4mg 4 mg, Slow IV Push, ONCE, 1 dose, On Thu11/17/22 at 1815, [facility]EL [facility] lisinopriL (PRINIVIL,Z ESTRIL) tablet 10 mg 08-02 15:00: 00 Yes 10mg 10 mg, Oral, DAILY, First dose on 08/02/22 at 0900, Until Discontinu ed, Routine [facility] predniSONE (DELTASONE) tablet 40 mg 08-02 15:00: 00 08-07 14:59 :00 No 40mg 40 mg, Oral, DAILY, 5 doses, First dose on Thu08/02/22 at 0900, Last dose on Thu08/06/22 at 0900, Routine [facility] morpHINE (2 mg/mL) injection 2 mg 08-02 03:29: 15 Yes 2mg 2 mg, Slow IV Push, Q4HPRN, Starting on Thu08/01/22 at 2129, Until Discontinu ed, Routine, Pain (scale 7-10) [facility] levETIRAcet am (KEPPRA) in NACL (ISO-OS) 1,000 mg/100 mL RTU 08-02 00:00: 00 Yes 1000mg 1,000 mg, IV Piggyback, Q12H, First dose on Thu08/01/22 at 1800, Until Discontinu ed, Administer over 15 Minutes, 100 mL [facility] MULTIVITAMI N ORAL 08-01 23:49: 34 Yes 1{tbl} Take 1 Tab by mouth daily. [facility] omega-3 fatty acids-vitam in E (FISH OIL) 1,000 mg capsule 08-01 23:49: 34 Yes 1g Take 1 g by mouth daily. [facility] loratadine (CLARITIN LIQUI-GEL) 10 mg capsule 08-01 23:49: 34 Yes Take by mouth daily. [facility] ondansetron 4 mg tablet 08-01 23:49: 34 Yes 4mg Take 4 mg by mouth every 8 (eight) hours as needed. [facility] pantoprazol e 40 mg EC tablet 08-01 23:49: 34 Yes 40mg Take 40 mg by mouth daily. [facility] omega-3 fatty acids-vitam in E (FISH OIL) 1,000 mg capsule 08-01 23:49: 34 Yes 1g Take 1 g by mouth daily. [facility] benzonatate (TESSALON PERLES) capsule 100 mg 08-01 20:00: 00 Yes 100mg 100 mg, Oral, Q8H, First dose on Thu08/01/22 at 1400, Until Discontinu ed, Routine [facility] ipratropium -albuteroL (DUONEB) 0.5 mg-3 mg(2.5 mg base)/3 mL nebulizer solution 3 mL 08-01 18:00: 00 Yes 3mL 3 mL, Inhalation , QID, First dose on Thu08/01/22 at 1200, Until Discontinu ed, Routine [facility] ipratropium -albuteroL (DUONEB) 0.5 mg-3 mg(2.5 mg base)/3 mL nebulizer solution 3 mL 08-01 17:07: 07 Yes 3mL 3 mL, Inhalation , QIDPRN, Starting on Thu08/01/22 at 1107, Until Discontinu ed, MICHAEL, Wheezing, Shortness of Breath [facility] sulfur hexafluorid e microsphr (LUMASON) injection 5 mL 08-01 17:00: 00 08-01 17:00 :00 No [id number] 5mL 5 mL, Intravenou s, ONCE, 1 dose, On Thu08/01/22 at 1100, Routine
member of congress approving Restricted medication : KYLEE MONTEZ [facility] pantoprazol e (PROTONIX) EC tablet 40 mg 08-01 15:00: 00 Yes 40mg 40 mg, Oral, DAILY, First dose on Thu08/01/22 at 0900, Until Discontinu ed, Routine [facility] aspirin chewable tablet 81 mg 08-01 15:00: 00 Yes 81mg 81 mg, Oral, DAILY, First dose on Thu08/01/22 at 0900, Until Discontinu ed, Routine [facility] amLODIPine (NORVASC) tablet 10 mg 08-01 15:00: 00 Yes 10mg 10 mg, Oral, DAILY, First dose on Thu08/01/22 at 0900, Until Discontinu ed, Routine [facility] levETIRAcet am (KEPPRA) tablet 500 mg 08-01 14:00: 00 08-01 23:56 :35 No 500mg 500 mg, Oral, BID, First dose on Thu08/01/22 at 0800, Until Discontinu ed, Routine [facility] carvediloL (COREG) tablet 6.25 mg 08-01 14:00: 00 08-01 17:29 :13 No 6.25mg 6.25 mg, Oral, BID MEALS, First dose on Thu08/01/22 at 0800, Until Discontinu ed, Routine [facility] levETIRAcet am (KEPPRA) in NACL (ISO-OS) 1,000 mg/100 mL RTU 08-01 06:45: 00 08-01 06:32 :00 No 1000mg 1,000 mg, IV Piggyback, ONCE, 1 dose, On Thu08/01/22 at 0045, Administer over 15 Minutes, 100 mL [facility] LORazepam (ATIVAN) injection 1 mg 08-01 05:52: 54 Yes 1mg 1 mg, Slow IV Push, Q4HPRN, Starting on Thu07/31/22 at 2352, Until Discontinu ed, Routine, Seizures, Agitation, Anxiety, ETOH / Cocaine Withdrawl [facility] foLIC acid (FOLATE) tablet 1 mg 08-01 05:45: 00 Yes 1mg 1 mg, Oral, DAILY, First dose on Thu07/31/22 at 2345, Until Discontinu ed, Routine [facility] thiamine (VITAMIN B1) tablet 100 mg 08-01 05:45: 00 Yes 100mg 100 mg, Oral, DAILY, First dose on Thu07/31/22 at 2345, Until Discontinu ed, Routine [facility] LORazepam (ATIVAN) injection 0.5 mg 08-01 05:30: 00 08-01 05:29 :00 No .5mg 0.5 mg, Slow IV Push, ONCE, 1 dose, On Thu07/31/22 at 2330, MICHAEL [facility] atorvastati n (LIPITOR) tablet 40 mg 08-01 03:00: 00 Yes 40mg 40 mg, Oral, QHS, First dose on Thu07/31/22 at 2100, Until Discontinu ed, Routine [facility] diphenhydrA MINE (BENADRYL) tablet 25 mg 08-01 00:32: 02 Yes 25mg 25 mg, Oral, Q6HPRN, Starting on Thu07/31/22 at 1832, Until Discontinu ed, Routine, Itching [facility] enoxaparin (LOVENOX) injection 40 mg 07-31 23:00: 00 Yes 40mg 40 mg, Subcutaneo us, DAILY, First dose on Thu07/31/22 at 1700, Until Discontinu ed, Routine [facility] morpHINE (2 mg/mL) injection 2 mg 07-31 23:00: 00 07-31 22:29 :00 No 2mg 2 mg, Slow IV Push, ONCE, 1 dose, On Thu07/31/22 at 1700, Routine [facility] HYDROcodone -acetaminop hen (NORCO) 10-325 mg tablet 1 tablet 07-31 22:01: 36 Yes 1{tbl} 1 tablet, Oral, Q6HPRN, Starting on Thu07/31/22 at 1601, Until Discontinu ed, Routine, Pain (scale 7-10) [facility] HYDROcodone -acetaminop hen (NORCO 5) 5-325 mg tablet 1 tablet 07-31 22:01: 34 08-02 22:00 :34 No 1{tbl} 1 tablet, Oral, Q6HPRN, Starting on Thu07/31/22 at 1601, Until 08/02/22 at 1600, Routine, Pain (scale 4-6) [facility] acetaminoph en (TYLENOL) tablet 650 mg 07-31 22:01: 33 Yes 650mg 650 mg, Oral, Q6HPRN, Starting on Thu07/31/22 at 1601, Until Discontinu ed, Routine, Pain (scale 1-3) [facility] ketorolac (TORADOL) injection 15 mg 07-31 21:45: 00 07-31 20:50 :00 No 15mg 15 mg, Slow IV Push, ONCE, 1 dose, On Arpita 07/31/22 at 1545, Routine [facility] ondansetron (ZOFRAN (PF)) injection 4 mg 07-31 21:00: 00 07-31 20:47 :00 No 4mg 4 mg, Slow IV Push, ONCE, 1 dose, On Arpita 07/31/22 at 1500, MICHAEL [facility] furosemide (LASIX) injection 40 mg 07-31 20:15: 00 Yes 40mg 40 mg, Slow IV Push, Q12H, First dose on Arpita 07/31/22 at 1415, Until Discontinu ed, Routine [facility] methylpredn isolone sod succ (SOLU-MEDRO L) injection 125 mg 07-31 19:30: 00 07-31 18:54 :00 No 125mg 125 mg, Slow IV Push, ONCE NOW, 1 dose, On Arpita 07/31/22 at 1330, MICHAEL [facility] ipratropium -albuteroL (DUONEB) 0.5 mg-3 mg(2.5 mg base)/3 mL nebulizer solution 3 mL 07-31 19:30: 00 07-31 18:48 :00 No 3mL 3 mL, Inhalation , ONCE, 1 dose, On Arpita 07/31/22 at 1330, MICHAEL [facility] pantoprazol e 40 mg EC tablet 07-31 17:15: 40 Yes 40mg Take 40 mg by mouth daily. [facility] MULTIVITAMI N ORAL 07-31 15:50: 57 Yes 1{tbl} Take 1 Tab by mouth daily. [facility] loratadine (CLARITIN LIQUI-GEL) 10 mg capsule 07-31 15:50: 57 Yes Take by mouth daily. [facility] ondansetron 4 mg tablet 07-31 15:50: 57 Yes 4mg Take 4 mg by mouth every 8 (eight) hours as needed. [facility] omega-3 fatty acids-vitam in E (FISH OIL) 1,000 mg capsule 07-31 15:21: 27 Yes 1g Take 1 g by mouth daily. [facility] TAKE ONE (1) TABLET(S) BY MOUTH THREE TIMES A DAY NEEDED. 07-28 00:00: 00 No Methylpredn isolone 4 mg tablet 2021-07 00:00: 00 05-12 04:59 :00 No [id number] 4mg Take 1 tablet through enteral tube in the morning for 1 dose. [facility] Methylpredn isolone 4 mg tablet 2021-07 00:00: 00 05-11 04:59 :00 No [id number] 4mg Take 1 tablet through enteral tube every 12 (twelve) hours for 2 doses. [facility] MULTIVITAMI N ORAL 2021-07 14:44: 48 Yes 1{tbl} Take 1 Tab by mouth daily. [facility] omega-3 fatty acids-vitam in E (FISH OIL) 1,000 mg capsule 2021-07 14:44: 48 Yes 1g Take 1 g by mouth daily. [facility] loratadine (CLARITIN LIQUI-GEL) 10 mg capsule 2021-07 14:44: 48 Yes Take by mouth daily. [facility] ondansetron (ZOFRAN) 4 mg tablet 2021-07 14:44: 48 Yes 4mg Take 4 mg by mouth every 8 (eight) hours as needed. [facility] pantoprazol e (PROTONIX) 40 mg EC tablet 2021-07 14:44: 48 Yes 40mg Take 40 mg by mouth daily. [facility] DULoxetine (CYMBALTA) capsule 30 mg 2021-07 14:00: 00 Yes 30mg 30 mg, Oral, DAILY, First dose on Arpita 05/08/22 at 0900, Until Discontinu ed, Routine [facility] divalproex (DEPAKOTE) EC tablet 1,000 mg 2021-07 13:00: 00 Yes 1000mg 1,000 mg, Oral, BID, First dose (after last modificati on) on Thu05/08/22 at 0800, Until Discontinu ed, Routine [facility] Methylpredn isolone (MEDROL) tablet 4 mg 2021-07 08:50: 10 05-09 08:59 :00 No 4mg 4 mg, Oral, Q8H TAPER, 3 doses, First dose on Thu05/08/22 at 0400, Last dose on Thu05/08/22 at 2000, Routine [facility] acetaminoph en-codeine (TYLENOL #3) 300-30 mg tablet 1 tablet 2021-07 04:07: 01 Yes 1{tbl} 1 tablet, Oral, Q4HPRN, Starting on Thu05/07/22 at 2307, Until Discontinu ed, Routine, Pain (scale 7-10) [facility] morpHINE (2 mg/mL) injection 2 mg 2021-07 03:03: 15 Yes 2mg 2 mg, Slow IV Push, Q4HPRN, Starting on Thu05/07/22 at 2203, Until Discontinu ed, Routine, Pain (scale 7-10) [facility] LORazepam (ATIVAN) tablet 1 mg 2021-07 00:02: 18 Yes 1mg 1 mg, Oral, Q6HPRN, Starting on Thu05/07/22 at 1902, Until Discontinu ed, Routine, Anxiety [facility] cyclobenzap rine 5 mg tablet 2021-07 00:00: 00 Yes [id number] 5mg Take 1 tablet by mouth in the morning and 1 tablet at noon and 1 tablet in the evening. [facility] DULoxetine (CYMBALTA) 30 mg capsule 2021-07 00:00: 00 06-08 05:59 :00 No [id number] 60mg Take 2 capsules by mouth in the morning for 30 days. [facility] divalproex (DEPAKOTE) 250 mg EC tablet 2021-07 00:00: 00 06-08 05:59 :00 No [id number] 750mg Take 3 tablets by mouth every 8 (eight) hours for 30 days. [facility] LORazepam 1 mg tablet 2021-07 00:00: 00 05-19 04:59 :00 No [id number] 1mg Take 1 tablet by mouth every 6 (six) hours as needed for Anxiety or Agitation for up to [address] [facility] it[facility] acetaminoph en-codeine 300-30 mg tablet 2021-07 00:00: 00 05-16 04:59 :00 No [id number] 1{tbl} Take 1 tablet by mouth every 4 (four) hours as needed for Pain (scale 7-10) for up to 7 days. Indication s: acute pain [facility] Methylpredn isolone 4 mg tablet 2021-07 00:00: 00 05-10 04:59 :00 No [id number] 4mg Take 1 tablet by mouth every 8 (eight) hours for 3 doses. [facility] divalproex (DEPAKOTE) EC tablet 750 mg 2021-07 01:00: 00 05-08 09:40 :23 No 750mg 750 mg, Oral, BID, First dose on Thu05/06/22 at 2000, Until Discontinu ed, Routine [facility] levETIRAcet am (KEPPRA) tablet 1,500 mg 2021-07 13:00: 00 05-06 18:38 :22 No 1500mg 1,500 mg, Oral, BID, First dose (after last modificati on) on Thu05/06/22 at 0800, Until Discontinu ed, Routine [facility] levETIRAcet am (KEPPRA) in NACL (ISO-OS) 1,000 mg/100 mL RTU 2021-07 05:00: 00 05-06 05:46 :00 No 1000mg 1,000 mg, IV Piggyback, ONCE, 1 dose, On Thu05/06/22 at 0000, Administer over 15 Minutes, [address] [facility] methocarbam oL (ROBAXIN) tablet 500 mg 2021-07 02:15: 00 05-06 23:21 :42 No 500mg 500 mg, Oral, QID, First dose on Thu05/05/22 at 2115, Until Discontinu ed, Routine [facility] LORazepam (ATIVAN) tablet 2 mg 2021-07 01:30: 00 05-06 01:03 :00 No 2mg 2 mg, Oral, ONCE, 1 dose, On Thu05/05/22 at 2030, Routine [facility] levETIRAcet am (KEPPRA) tablet 1,000 mg 2021-07 01:00: 00 05-06 04:48 :06 No 1000mg 1,000 mg, Oral, BID, First dose on Thu05/05/22 at 2000, Until Discontinu ed, Routine [facility] enoxaparin (LOVENOX) injection 40 mg 2021-07 00:15: 00 Yes 40mg 40 mg, Subcutaneo us, Q24H, First dose on Thu05/05/22 at 1915, Until Discontinu ed, Routine [facility] levETIRAcet am (KEPPRA) in NACL (ISO-OS) 1,000 mg/100 mL RTU 2021-07 19:45: 00 05-05 20:05 :00 No 1000mg 1,000 mg, IV Piggyback, ONCE, 1 dose, On Thu05/05/22 at 1445, Administer over 15 Minutes, 100 mL [facility] clonazePAM (KLONOPIN) tablet 0.5 mg 2021-07 19:30: 00 Yes .5mg 0.5 mg, Oral, BID, First dose on Thu05/05/22 at 1430, Until Discontinu ed, Routine [facility] ibuprofen (IBU) tablet 600 mg 2021-07 19:30: 00 Yes 600mg 600 mg, Oral, TID MEALS, First dose on Thu05/05/22 at 1430, Until Discontinu ed, Routine [facility] gabapentin (NEURONTIN) capsule 300 mg 2021-07 19:30: 00 Yes 300mg 300 mg, Oral, TID, First dose on Thu05/05/22 at 1430, Until Discontinu ed, Routine [facility] cyclobenzap rine (FLEXERIL) tablet 5 mg 2021-07 19:30: 00 Yes 5mg 5 mg, Oral, TID, First dose on Thu05/05/22 at 1430, Until Discontinu ed, Routine [facility] acetaminoph en (TYLENOL) tablet 1,000 mg 2021-07 19:30: 00 Yes 1000mg 1,000 mg, Oral, Q8H, First dose on Thu05/05/22 at 1430, Until Discontinu ed, Routine [facility] pantoprazol e (PROTONIX) EC tablet 40 mg 2021-07 14:00: 00 Yes 40mg 40 mg, Oral, DAILY, First dose on Thu05/05/22 at 0900, Until Discontinu ed, Routine [facility] docusate (COLACE) capsule 100 mg 2021-07 14:00: 00 Yes 100mg 100 mg, Oral, DAILY, First dose on Thu05/05/22 at 0900, Until Discontinu ed, Routine [facility] HYDROcodone -acetaminop hen (NORCO) 10-325 mg tablet 1 tablet 2021-07 10:32: 02 05-05 19:18 :52 No 1{tbl} 1 tablet, Oral, Q6HPRN, Starting on Thu05/05/22 at 0532, Until Thu05/05/22 at 1418, Routine, Pain (scale 7-10) [facility] ondansetron (ZOFRAN (PF)) injection 4 mg 2021-07 06:49: 57 Yes 4mg 4 mg, Slow IV Push, Q6HPRN, Starting on Thu05/05/22 at 0149, Until Discontinu ed, Routine, Nausea and Vomiting (N/V) [facility] HYDROcodone -acetaminop hen (NORCO 5) 5-325 mg tablet 1 tablet 2021-07 06:49: 41 05-05 10:32 :14 No 1{tbl} 1 tablet, Oral, Q6HPRN, Starting on Thu05/05/22 at 0149, Until Thu05/05/22 at 0532, Routine, Pain (scale 7-10) [facility] acetaminoph en (TYLENOL) tablet 325 mg 2021-07 06:49: 39 05-05 19:18 :52 No 325mg 325 mg, Oral, Q4HPRN, Starting on Thu05/05/22 at 0149, Until Thu05/05/22 at 1418, Routine, Pain (scale 4-6) [facility] ondansetron (ZOFRAN) tablet 4 mg 2021-07 04:00: 00 05-05 03:26 :00 No 4mg 4 mg, Oral, ONCE, 1 dose, On 05/04/22 at 2300, Routine [facility] morpHINE (2 mg/mL) injection 2 mg 2021-07 04:00: 00 05-05 03:26 :00 No 2mg 2 mg, Slow IV Push, ONCE, 1 dose, On 05/04/22 at 2300, Routine [facility] aspirin 81 mg chewable tablet 04-16 00:00: 00 Yes [id number] 81mg Take 1 tablet by mouth in the morning. [facility] MULTIVITAMI N ORAL 04-15 17:39: 14 Yes 1{tbl} Take 1 Tab by mouth daily. [facility] omega-3 fatty acids-vitam in E (FISH OIL) 1,000 mg capsule 04-15 17:39: 14 Yes 1g Take 1 g by mouth daily. [facility] loratadine (CLARITIN LIQUI-GEL) 10 mg capsule 04-15 17:39: 14 Yes Take by mouth daily. [facility] ondansetron (ZOFRAN) 4 mg tablet 04-15 17:39: 14 Yes 4mg Take 4 mg by mouth every 8 (eight) hours as needed. [facility] pantoprazol e (PROTONIX) 40 mg EC tablet 04-15 17:39: 14 Yes 40mg Take 40 mg by mouth daily. [facility] lisinopril- hydrochloro thiazide 20-12.5 mg per tablet 04-15 15:58: 35 04-15 00:00 :00 No 1{tbl} Take 1 tablet by mouth daily. [facility] levetiracet am (KEPPRA ORAL) 04-15 15:58: 35 04-15 00:00 :00 No Take by mouth. [facility] acetaminoph en-codeine (TYLENOL #4) 300-60 mg tablet 1 tablet 04-15 05:39: 23 04-15 14:39 :42 No 1{tbl} 1 tablet, Oral, Q6HPRN, Starting on Thu04/15/22 at 0039, Until Thu04/15/22 at 0939, Routine, Pain (scale 4-6), Pain (scale 1-3) [facility] LORazepam (ATIVAN) tablet 2 mg 04-15 03:30: 00 04-15 10:27 :00 No 2mg 2 mg, Oral, ONCE, 1 dose, On Thu04/14/22 at 2230, Routine [facility] levETIRAcet am (KEPPRA) tablet 1,000 mg 04-15 02:45: 00 Yes 1000mg 1,000 mg, Oral, BID, First dose (after last modificati on) on Thu04/14/22 at 2145, Until Discontinu ed, Routine [facility] ketorolac (TORADOL) injection 15 mg 04-15 02:13: 00 04-15 02:22 :00 No 15mg 15 mg, Slow IV Push, ONCE, 1 dose, On Thu04/14/22 at 2115, Routine [facility] atorvastati n 40 mg tablet 04-15 00:00: 00 Yes [id number] 40mg Take 1 tablet by mouth at bedtime. [facility] levETIRAcet am 1,000 mg tablet 04-15 00:00: 00 05-08 00:00 :00 No [id number] 1000mg Take 1 tablet by mouth in the morning and 1 tablet in the evening. [facility] lidocaine 5 % (700 mg/patch) patch 04-15 00:00: 00 04-23 04:59 :00 No [id number] 1{patch } Apply 1 Patch to area(s) in the morning for 7 days. [facility] HYDROcodone -acetaminop hen 5-325 mg tablet 04-15 00:00: 00 04-21 04:59 :00 No [id number] 1{tbl} Take 1 tablet by mouth every 6 (six) hours as needed for Pain (scale 7-10) for up to 5 days. Indication s: acute pain [facility] lidocaine (LIDODERM) 5 % (700 mg/patch) patch 1 Patch 04-14 21:45: 29 Yes 1{patch } 1 Patch, Topical, Administer over 12 Hours, [id number], Starting on Thu04/14/22 at 1645, Until Discontinu ed, Routine, Localized pain [facility] aspirin chewable tablet 81 mg 04-14 21:30: 00 Yes 81mg 81 mg, Oral, DAILY, First dose on Thu04/14/22 at 1630, Until Discontinu ed, Routine [facility] acetaminoph en (TYLENOL) tablet 650 mg 04-14 21:29: 25 Yes 650mg 650 mg, Oral, Q6HPRN, Starting on Thu04/14/22 at 1629, Until Discontinu ed, Routine, Pain (scale 1-3), Temp > 38.5 C, Temp > 37.5 C [facility] HYDROcodone -acetaminop hen (NORCO) 10-325 mg tablet 1 tablet 04-14 21:29: 02 04-15 05:39 :41 No 1{tbl} 1 tablet, Oral, Q6HPRN, Starting on Thu04/14/22 at 1629, Until Thu04/15/22 at 0039, Routine, Pain (scale 7-10), Pain (scale 4-6) [facility] sulfur hexafluorid e microsphr (LUMASON) injection 5 mL 04-14 16:45: 00 04-14 16:45 :00 No [id number] 5mL 5 mL, Intravenou s, ONCE, 1 dose, On Thu04/14/22 at 1145, Routine
member of congress approving Restricted medication : [employer] [facility] clopidogreL (PLAVIX) 75 mg tablet 75 mg 04-14 14:00: 00 Yes 75mg 75 mg, Oral, DAILY, First dose on Thu04/14/22 at 0900, Until Discontinu ed, [facility]ON[facility] EC tablet 40 mg 04-14 14:00: 00 Yes 40mg 40 mg, Oral, DAILY, First dose on Thu04/14/22 at 0900, Until Discontinu ed, Routine [facility] atorvastati n (LIPITOR) tablet 40 mg 04-14 02:00: 00 Yes 40mg 40 mg, Oral, QHS, First dose on 04/13/22 at 2100, Until Discontinu ed, [facility] LORazepam (ATIVAN) tablet 1 mg 04-14 01:30: 00 04-14 01:45 :00 No 1mg 1 mg, Oral, ONCE, 1 dose, On Thu04/13/22 at 2030, Routine [facility] methocarbam oL (ROBAXIN) tablet 500 mg 04-14 01:00: 00 Yes 500mg 500 mg, Oral, QID, First dose on Thu04/13/22 at 2000, Until Discontinu ed, Routine [facility] heparin (porcine) injection 5,000 Units 04-14 01:00: 00 Yes 5000U 5,000 Units, Subcutaneo us, Q12H, First dose on 04/13/22 at 2000, Until Discontinu ed, Routine [facility] acetaminoph en (TYLENOL) tablet 650 mg 04-14 00:23: 25 04-14 21:29 :42 No 650mg 650 mg, Oral, Q6HPRN, Starting on Thu04/13/22 at 1923, Until Thu04/14/22 at 1629, Routine, Pain (scale 1-3), Pain (scale 4-6), Temp > 38.5 C, Temp > 37.5 C [facility] lidocaine (LIDODERM) 5 % (700 mg/patch) patch 1 Patch 04-14 00:22: 00 04-14 13:51 :00 No 1{patch } 1 Patch, Topical, Administer over 12 Hours, ONCE, 1 dose, On Thu04/13/22 at 1930, Routine [facility] FENTanyl PF (SUBLIMAZE (PF)) injection 50 mcg 04-13 20:30: 00 04-13 19:22 :00 No 50ug 50 mcg, Slow IV Push, ONCE, 1 dose, On Thu04/13/22 at 1530, Routine [facility] aspirin chewable tablet 650 mg 04-13 20:15: 00 04-13 20:15 :00 No 650mg 650 mg, Oral, ONCE, 1 dose, On Thu04/13/22 at 1515, Routine [facility] clopidogreL (PLAVIX) 300 mg tablet 300 mg 04-13 20:00: 00 04-13 19:15 :00 No 300mg 300 mg, Oral, ONCE, 1 dose, On Thu04/13/22 at 1500, Routine [facility] ondansetron (ZOFRAN (PF)) injection 4 mg 04-13 19:30: 00 04-13 19:22 :00 No 4mg 4 mg, Slow IV Push, ONCE, 1 dose, On Thu04/13/22 at 1430, [facility] iopamidol (ISOVUE 370-500 mL) injection 100 mL 04-13 18:31: 00 04-13 18:32 :00 No [id number] 100mL 100 mL, Intravenou s, ONCE, 1 dose, On Thu04/13/22 at 1345, Routine [facility] NaCl 0.9% (NS) injection 5 mL 04-13 18:14: 11 Yes 5mL 5 mL, Slow IV Push, PRN - SEE INSTRUCTIO NS, Starting on 04/13/22 at 1314, Until Discontinu ed, 10 mL [facility] aspirin chewable tablet 324 mg 11-24 14:00: 00 Yes 324mg 324 mg, Oral, DAILY, First dose on 11/24/21 at 0900, Until Discontinu ed, Routine [facility] metoclopram iker HCl (REGLAN) injection 10 mg 11-23 22:30: 00 11-23 21:24 :00 No 10mg 10 mg, Slow IV Push, ONCE, 1 dose, On 11/23/21 at 1730, [facility] acetaminoph en (TYLENOL) tablet 1,000 mg 11-23 22:15: 00 11-23 21:09 :00 No 1000mg 1,000 mg, Oral, ONCE, 1 dose, On 11/23/21 at 1715, [facility] ondansetron (ZOFRAN (PF)) injection 4 mg 11-23 21:45: 00 11-23 20:30 :00 No 4mg 4 mg, Slow IV Push, ONCE, 1 dose, On 11/23/21 at 1645, [facility] NaCl 0.9% (NS) bolus infusion 1,000 mL 11-23 21:30: 00 11-23 21:56 :00 No 1000mL at 999 mL/hr, 1,000 mL, IV Infusion, ONCE, 1 dose, On 11/23/21 at 1630, [facility] LORazepam (ATIVAN) injection 4 mg 11-23 21:30: 00 11-23 20:23 :00 No 4mg 4 mg, Slow IV Push, ONCE, 1 dose, On 11/23/21 at 1630, [facility] levETIRAcet am (KEPPRA) in NACL (ISO-OS) 1,500 mg/100 mL RTU 2-0 5-07 21:30: 00 2021- 05-07 20:47 :00 No 1500mg 1,500 mg, IV Piggyback, ONCE, 1 dose, On 11/23/21 at 1630, Administer over 15 Minutes, 100 mL [facility] Dose Unknown 2021-0 4-08 00:00: 00 No Dose Unknown 2021-0 4-08 00:00: 00 No Prozac 20 mg capsule 2021-0 3-21 00:00: 00 No 1mg Prozac 20 mg capsule 2021-0 3-21 00:00: 00 No 1mg Dose Unknown 2021-0 3-16 00:00: 00 No Dose Unknown 202-0 3-16 00:00: 00 No Dose Unknown 2022-0 3-15 00:00: 00 No Dose Unknown 2021-0 3-15 00:00: 00 No Dose Unknown 2021-0 3-14 00:00: 00 No Dose Unknown 2022-0 [...] y
Durat ion of Therapy: 7 days [facility] morpHINE injection 4 mg 03-17 01:58: 00 03-17 02:13 :00 No 4mg 4 mg, Slow IV Push, ONCE, 1 dose, 03/16/21 at 2100, STAT [facility] ondansetron (ZOFRAN (PF)) injection 4 mg 03-17 01:58: 00 03-17 02:12 :00 No 4mg 4 mg, Slow IV Push, ONCE, 1 dose, 03/16/21 at 2100, [facility] ipratropium -albuteroL (DUONEB) 0.5 mg-3 mg(2.5 mg base)/3 mL nebulizer solution 3 mL 03-17 01:57: 00 03-17 02:15 :00 No 3mL 3 mL, Inhalation , ONCE, 1 dose, 8/28/21 at 2100, [facility] NaCl 0.9% (NS) IV infusion 1,000 mL 03-17 01:57: 00 03-17 03:07 :00 No 1000mL at 999 mL/hr, Intravenou s, ONCE, 1 dose, 03/16/21 at 2100, [facility] methylpredn isolone sod succ (SOLU-MEDRO L) injection 125 mg 03-17 01:57: 00 03-17 02:11 :00 No 125mg 125 mg, Slow IV Push, ONCE, 1 dose, 03/16/21 at 2100, STAT [facility] levoFLOXaci n 500 mg tablet 03-17 00:00: 00 03-24 04:59 :00 No [id number] 500mg Take 1 tablet by mouth daily for 6 days. [facility] predniSONE 10 mg tablet 03-17 00:00: 00 03-22 04:59 :00 No [id number] 30mg Take 3 tablets by mouth daily for 4 days. [facility] albuterol (VENTOLIN) inhaler 4 Puff 03-15 01:45: 00 03-15 00:44 :00 No [id number] 4{puff} 4 Puff, Inhalation , ONCE, 1 dose, Arpita 03/14/21 at 2044, Routine [facility] dexamethaso ne (DECADRON) injection 10 mg 03-15 01:45: 00 03-15 00:45 :00 No [id number] 10mg 10 mg, Intramuscu lar, ONCE, 1 dose, Arpita 03/14/21 at 2044, Routine [facility] albuterol 2.5 mg /3 mL (0.083 %) nebulizer solution 03-15 00:00: 00 Yes [id number] 2.5mg Inhale 3 mL every 4 (four) hours as needed for Wheezing or Shortness of Breath. [facility] levETIRAcet am (KEPPRA) in NACL (ISO-OS) 1,000 mg/100 mL RTU 02-19 20:15: 00 02-19 19:30 :00 No 1000mg 1,000 mg, IV Infusion, ONCE, 1 dose, 02/19/21 at 1515, Administer over 15 Minutes, 100 mL [facility] levetiracet am (KEPPRA ORAL) 02-19 19:45: 33 Yes Take by mouth. [facility] LISINOPRIL- HYDROCHLORO THIAZIDE ORAL 02-19 19:41: 15 02-19 00:00 :00 No Take by mouth. [facility] dicyclomine (BENTYL) injection 20 mg 02-19 19:15: 00 02-19 19:04 :00 No 20mg 20 mg, Intramuscu lar, ONCE, 1 dose, 02/19/21 at 1415, Routine [facility] proMETHazin e (PHENERGAN) 25 mg in NaCl 0.9% (NS) 50 mL piggyback 02-19 19:15: 00 02-19 19:03 :00 No 25mg 25 mg, IV Piggyback, ONCE, 1 dose, 02/19/21 at 1415, 50 mL [facility] morpHINE injection 4 mg 02-19 17:15: 00 02-19 17:05 :00 No 4mg 4 mg, Slow IV Push, ONCE, 1 dose, 02/19/21 at 1215, STAT [facility] NaCl 0.9% (NS) bolus infusion 1,000 mL 02-19 17:15: 00 02-19 19:04 :00 No 1000mL at 999 mL/hr, 1,000 mL, IV Infusion, ONCE, 1 dose, 02/19/21 at 1215, STAT [facility] ondansetron (ZOFRAN (PF)) injection 4 mg 02-19 17:00: 00 02-19 15:59 :00 No 4mg 4 mg, Slow IV Push, ONCE, 1 dose, 02/19/21 at 1200, [facility] iopamidol (ISOVUE 370-500 mL) injection 100 mL 02-19 16:35: 00 02-19 16:45 :00 No [id number] 100mL 100 mL, Intravenou s, ONCE, 1 dose, [facility] 02/19/21 at 1145, Routine [facility] levetiracet am (KEPPRA ORAL) 02-19 14:45: 33 Yes Take by mouth. [facility] proMETHazin e 25 mg tablet 02-19 00:00: 00 Yes [id number] 25mg Take 1 tablet by mouth every 6 (six) hours as needed for Nausea and Vomiting (N/V). [facility] dicyclomine 20 mg tablet 02-19 00:00: 00 Yes [id number] 20mg Take 1 tablet by mouth 4 (four) times daily as needed for Abdominal pain. [facility] ZONISAMIDE 100 mg capsule 11-15 00:00: 00 02-19 00:00 :00 No TAKE 1 CAPSULE BY MOUTH TWICE A DAY [facility] ondansetron (ZOFRAN) 4 mg tablet 02-09 20:05: 01 Yes 4mg Take 4 mg by mouth every 8 (eight) hours as needed. [facility] pantoprazol e (PROTONIX) 40 mg EC tablet 02-09 20:05: 01 Yes 40mg Take 40 mg by mouth daily. [facility] LISINOPRIL- HYDROCHLORO THIAZIDE ORAL 02-09 20:05: 01 Yes Take by mouth. [facility] lisinopril- hydrochloro thiazide 20-12.5 mg per tablet 02-09 20:03: 30 Yes 1{tbl} Take 1 tablet by mouth daily. [facility] omega-3 fatty acids-vitam in E (FISH OIL) 1,000 mg capsule 02-09 19:59: 52 Yes 1g Take 1 g by mouth daily. [facility] MULTIVITAMI N ORAL 02-09 19:58: 14 Yes 1{tbl} Take 1 Tab by mouth daily. [facility] loratadine (CLARITIN LIQUI-GEL) 10 mg capsule 02-09 19:58: 14 Yes Take by mouth daily. [facility] pantoprazol e (PROTONIX) 40 mg EC tablet 02-09 15:05: 01 Yes 40mg Take 40 mg by mouth daily. [facility] ondansetron (ZOFRAN) 4 mg tablet 02-09 15:05: 01 Yes 4mg Take 4 mg by mouth every 8 (eight) hours as needed. [facility] lisinopril- hydrochloro thiazide 20-12.5 mg per tablet 02-09 15:03: 30 Yes 1{tbl} Take 1 tablet by mouth daily. [facility] omega-3 fatty acids-vitam in E (FISH OIL) 1,000 mg capsule 02-09 14:59: 52 Yes 1g Take 1 g by mouth daily. [facility] MULTIVITAMI N ORAL 02-09 14:58: 14 Yes 1{tbl} Take 1 Tab by mouth daily. [facility] loratadine (CLARITIN LIQUI-GEL) 10 mg capsule 02-09 14:58: 14 Yes Take by mouth daily. [facility] proMETHazin e (PHENERGAN) 25 mg tablet 11-20 00:00: 00 02-19 00:00 :00 No 25mg Take 1 tablet by mouth every 6 (six) hours as needed for Nausea and Vomiting (N/V). [facility] carvedilol (COREG) 6.25 mg tablet 09-19 00:00: 00 Yes 6.25mg Take 1 Tab by mouth 2 (two) times daily with meals. [facility] amLODIPine (NORVASC) 10 mg tablet 09-19 00:00: 00 Yes 10mg Take 1 Tab by mouth daily. [facility] lisinopril (PRINIVIL,Z ESTRIL) 40 mg tablet 09-19 00:00: 00 Yes 40mg Take 1 Tab by mouth daily. [facility] Immunizations Ordered Immunization Name Filled Immunization Name Date Status Comments Source SARS-COV-2 COVID-19 PFIZER BA-SUCROSE VACCINE (ROSE TOP) 2022-02-19 00:00:00 Completed [facility] SARS-COV-2 COVID-19 PFIZER BA-SUCROSE VACCINE (ROSE TOP) 2022-02-19 00:00:00 Completed [facility] SARS-COV-2 COVID-19 PFIZER BA-SUCROSE VACCINE (ROSE TOP) 2022-02-19 00:00:00 Completed [facility] SARS-COV-2 COVID-19 PFIZER BA-SUCROSE VACCINE (ROSE TOP) 2022-02-19 00:00:00 Completed [facility] SARS-COV-2 COVID-19 PFIZER BA-SUCROSE VACCINE (ROSE TOP) 2022-02-19 00:00:00 Completed [facility] SARS-COV-2 COVID-19 PFIZER BA-SUCROSE VACCINE (ROSE TOP) 2022-02-19 00:00:00 Completed [facility] SARS-COV-2 COVID-19 PFIZER BA-SUCROSE VACCINE (ROSE TOP) 2022-02-19 00:00:00 Completed [facility] SARS-COV-2 COVID-19 PFIZER BA-SUCROSE VACCINE (ROSE TOP) 2022-02-19 00:00:00 Completed [facility] SARS-COV-2 COVID-19 PFIZER BA-SUCROSE VACCINE (ROSE TOP) 2022-02-19 00:00:00 Completed [facility] SARS-COV-2 COVID-19 PFIZER VACCINE 2021-05-24 00:00:00 Completed [facility] SARS-COV-2 COVID-19 PFIZER VACCINE 2021-05-24 00:00:00 Completed [facility] SARS-COV-2 COVID-19 PFIZER VACCINE 2021-05-24 00:00:00 Completed [facility] SARS-COV-2 COVID-19 PFIZER VACCINE 2021-05-24 00:00:00 Completed [facility] SARS-COV-2 COVID-19 PFIZER VACCINE 2021-05-24 00:00:00 Completed [facility] SARS-COV-2 COVID-19 PFIZER VACCINE 2021-05-24 00:00:00 Completed [facility] SARS-COV-2 COVID-19 PFIZER VACCINE 2021-05-24 00:00:00 Completed [facility] SARS-COV-2 COVID-19 PFIZER VACCINE 2021-05-24 00:00:00 Completed [facility] SARS-COV-2 COVID-19 PFIZER VACCINE 2021-05-24 00:00:00 Completed [facility] SARS-COV-2 COVID-19 PFIZER VACCINE 2021-05-24 00:00:00 Completed [facility] SARS-COV-2 COVID-19 PFIZER VACCINE 2021-05-24 00:00:00 Completed [facility] SARS-COV-2 COVID-19 PFIZER VACCINE 2021-05-03 00:00:00 Completed [facility] SARS-COV-2 COVID-19 PFIZER VACCINE 2021-05-03 00:00:00 Completed [facility] SARS-COV-2 COVID-19 PFIZER VACCINE 2021-05-03 00:00:00 Completed [facility] SARS-COV-2 COVID-19 PFIZER VACCINE 2021-05-03 00:00:00 Completed [facility] SARS-COV-2 COVID-19 PFIZER VACCINE 2021-05-03 00:00:00 Completed [facility] SARS-COV-2 COVID-19 PFIZER VACCINE 2021-05-03 00:00:00 Completed [facility] SARS-COV-2 COVID-19 PFIZER VACCINE 2021-05-03 00:00:00 Completed [facility] SARS-COV-2 COVID-19 PFIZER VACCINE 2021-05-03 00:00:00 Completed [facility] SARS-COV-2 COVID-19 PFIZER VACCINE 2021-05-03 00:00:00 Completed [facility] SARS-COV-2 COVID-19 PFIZER VACCINE 2021-05-03 00:00:00 Completed [facility] SARS-COV-2 COVID-19 PFIZER VACCINE 2021-05-03 00:00:00 Completed [facility] SARS-COV-2 COVID-19 PFIZER VACCINE 2021-05-03 00:00:00 Completed [facility] SARS-COV-2 COVID-19 PFIZER VACCINE Unknown Completed [facility] SARS-COV-2 COVID-19 PFIZER VACCINE Unknown Completed [facility] SARS-COV-2 COVID-19 PFIZER BA-SUCROSE VACCINE (ROSE TOP) Unknown Completed [facility] Vital Signs Vital Name Observation Time Observation Value Comments S manace Systolic blood pressure 2023-09-11 17:27:00 122 mm[Hg] Cynthia Macdonaldybo ld - External Diastolic blood pressure 2023-09-11 17:27:00 74 mm[Hg] Cynthia Macdonaldybo ld - External Heart rate 2023-09-11 17:27:00 [...] Center Heart rate 2023-08-12 21:00:00 106 /min [facility] Res[facility] 2023-08-12 21:00:00 14 /min [facility] Oxygen saturation in Arterial blood by Pulse oximetry 2023-08-12 21:00:00 95 /min [facility] Body temperature 2023-08-12 20:34:54 37.22 [facility] Body height 2023-08-12 19:47:00 157.5 cm [facility] Body weight 2023-08-12 19:47:00 81.647 kg [facility] BMI 2023-08-12 19:47:00 32.92 kg/m2 [facility] WEIGHT 2023-06-16 05:26:00 86.047 kg HEIGHT 2023-06-13 [...] Center Respiratory rate 2022-12-11 20:00:00 24 /min [facility] Heart rate 2022-12-11 18:00:00 101 /min [facility] Oxygen saturation in Arterial blood by Pulse oximetry 2022-12-11 18:00:00 93 /min [facility] BMI 2022-12-11 13:55:00 35.43 kg/m2 [facility] Body temperature 2022-12-11 13:55:00 37.22 [facility] Body weight 2022-12-11 13:55:00 90.719 kg [facility] Systolic blood pressure 2022-11-18 05:34:00 152 mm[Hg] [facility] Diastolic blood pressure 2022-11-18 05:34:00 98 mm[Hg] [facility] Heart rate 2022-11-18 05:34:00 88 /min [facility] Respiratory rate 2022-11-18 05:34:00 18 /min [facility] Oxygen saturation in Arterial blood by Pulse oximetry 2022-11-18 05:34:00 97 /min [facility] Body temperature 2022-11-17 22:28:00 37.06 [facility] Body height 2022-11-17 22:28:00 160 cm [facility] Body weight 2022-11-17 22:28:00 99.791 kg [facility] BMI 2022-11-17 22:28:00 38.97 kg/m2 [facility] Heart rate 2022-08-02 02:02:00 108 /min [facility] Respiratory rate 2022-08-02 02:02:00 28 /min [facility] Oxygen saturation in Arterial blood by Pulse oximetry 2022-08-02 02:02:00 97 /min [facility] Body temperature 2022-08-02 01:00:00 36.44 [facility] Systolic blood pressure 2022-08-01 23:29:00 145 mm[Hg] [facility] Diastolic blood pressure 2022-08-01 23:29:00 103 mm[Hg] [facility] Body weight 2022-08-01 09:16:00 97.977 kg [facility] BMI 2022-08-01 09:16:00 38.26 kg/m2 [facility] Body height 2022-07-31 21:54:00 160 cm [facility] Systolic blood pressure 2022-05-08 16:40:00 146 mm[Hg] [facility] Diastolic blood pressure 2022-05-08 16:40:00 96 mm[Hg] [facility] Heart rate 2022-05-08 16:40:00 112 /min [facility] Body temperature 2022-05-08 16:40:00 36.78 [facility] Respiratory rate 2022-05-08 16:40:00 18 /min [facility] Oxygen saturation in Arterial blood by Pulse oximetry 2022-05-08 16:40:00 94 /min [facility] Body height 2022-05-05 23:44:00 160 cm [facility] Body weight 2022-05-05 23:37:00 81.647 kg [facility] BMI 2022-05-05 23:37:00 31.89 kg/m2 [facility] Systolic blood pressure 2022-04-15 18:52:00 104 mm[Hg] [facility] Diastolic blood pressure 2022-04-15 18:52:00 82 mm[Hg] [facility] Heart rate 2022-04-15 18:52:00 114 /min [facility] Oxygen saturation in Arterial blood by Pulse oximetry 2022-04-15 18:52:00 98 /min [facility] Body temperature 2022-04-15 16:14:00 36.28 [facility] Respiratory rate 2022-04-15 16:14:00 17 /min [facility] Body height 2022-04-13 21:08:00 160 cm [facility] Body weight 2022-04-13 21:08:00 91.173 kg [facility] BMI 2022-04-13 21:08:00 35.61 kg/m2 [facility] Systolic blood pressure 2021-11-23 21:30:00 132 mm[Hg] [facility] Diastolic blood pressure 2021-11-23 21:30:00 76 mm[Hg] [facility] Heart rate 2021-11-23 21:30:00 95 /min [facility] Respiratory rate 2021-11-23 21:30:00 13 /min [facility] Oxygen saturation in Arterial blood by Pulse oximetry 2021-11-23 21:30:00 97 /min [facility] Body temperature 2021-11-23 20:15:00 37.56 Rad[facility] Systolic blood pressure 2021-03-17 03:00:00 117 mm[Hg] [facility] Diastolic blood pressure 2021-03-17 03:00:00 76 mm[Hg] [facility] Heart rate 2021-03-17 03:00:00 104 /min [facility] Respiratory rate 2021-03-17 03:00:00 28 /min [facility] Oxygen saturation in Arterial blood by Pulse oximetry 2021-03-17 03:00:00 96 /min [facility] Body temperature 2021-03-17 00:39:00 37.11 [facility] Body height 2021-03-17 00:39:00 160 cm [facility] Body weight 2021-03-17 00:39:00 58.968 kg [facility] BMI 2021-03-17 00:39:00 23.03 kg/m2 [facility] Systolic blood pressure 2021-03-15 00:14:00 149 mm[Hg] [facility] Diastolic blood pressure 2021-03-15 00:14:00 78 mm[Hg] [facility] Heart rate 2021-03-15 00:14:00 100 /min [facility] Body temperature 2021-03-15 00:14:00 37.33 [facility] Respiratory rate 2021-03-15 00:14:00 24 /min [facility] Body height 2021-03-15 00:14:00 160 cm [facility] Body weight 2021-03-15 00:14:00 58.968 kg [facility] BMI 2021-03-15 00:14:00 23.03 kg/m2 [facility] Oxygen saturation in Arterial blood by Pulse oximetry 2021-03-15 00:14:00 98 /min [facility] Systolic blood pressure 2021-02-19 18:00:00 131 mm[Hg] [facility] Diastolic blood pressure 2021-02-19 18:00:00 80 mm[Hg] [facility] Heart rate 2021-02-19 18:00:00 83 /min [facility] Respiratory rate 2021-02-19 18:00:00 18 /min [facility] Oxygen saturation in Arterial blood by Pulse oximetry 2021-02-19 18:00:00 100 /min [facility] Body temperature 2021-02-19 15:47:00 37 [facility] Body height 2021-02-19 15:47:00 160 cm [facility] Body weight 2021-02-19 15:47:00 58.968 kg [facility] BMI 2021-02-19 15:47:00 23.03 kg/m2 [facility] Heart rate 2023-09-08 08:54:00 118 /min [facility] Respiratory rate 2023-09-08 08:54:00 21 /min [facility] Oxygen saturation in Arterial blood by Pulse oximetry 2023-09-08 08:54:00 100 /min [facility] Systolic blood pressure 2023-09-08 08:32:00 110 mm[Hg] [facility] Diastolic blood pressure 2023-09-08 08:32:00 77 mm[Hg] [facility] Body temperature 2023-09-08 08:32:00 36.06 Radha [facility] Body height 2023-09-04 00:58:00 157.5 cm [facility] Body weight 2023-09-04 00:58:00 80 kg [facility] BMI 2023-09-04 00:58:00 32.26 kg/m2 [facility] Heart rate 2023-06-16 17:00:00 108 /min [facility] Systolic blood pressure 2023-06-16 15:31:00 101 mm[Hg] [facility] Diastolic blood pressure 2023-06-16 15:31:00 81 mm[Hg] [facility] Body temperature 2023-06-16 15:31:00 36.61 Radha [facility] Respiratory rate 2023-06-16 15:31:00 18 /min [facility] Oxygen saturation in Arterial blood by Pulse oximetry 2023-06-16 15:31:00 94 /min [facility] Body weight 2023-06-16 05:26:00 86.047 kg [facility] BMI 2023-06-16 05:26:00 33.60 kg/m2 [facility] Body height 2023-06-13 04:00:00 160 cm [facility] Systolic blood pressure 2023-06-04 13:02:00 93 mm[Hg] [facility] Diastolic blood pressure 2023-06-04 13:02:00 57 mm[Hg] [facility] Heart rate 2023-06-04 13:02:00 101 /min [facility] Respiratory rate 2023-06-04 13:02:00 22 /min [facility] Oxygen saturation in Arterial blood by Pulse oximetry 2023-06-04 13:02:00 95 /min room air [facility] Body temperature 2023-06-04 11:46:00 35.28 Radha [facility] Systolic blood pressure 2023-05-28 16:00:00 154 mm[Hg] [facility] Diastolic blood pressure 2023-05-28 16:00:00 82 mm[Hg] [facility] Heart rate 2023-05-28 16:00:00 89 /min [facility] Body temperature 2023-05-28 16:00:00 36.67 Radha [facility] Respiratory rate 2023-05-28 16:00:00 16 /min [facility] Oxygen saturation in Arterial blood by Pulse oximetry 2023-05-28 16:00:00 97 /min [facility] Body height 2023-05-28 07:00:00 157.5 cm [facility] Body weight 2023-05-28 07:00:00 87.544 kg [facility] BMI 2023-05-28 07:00:00 35.30 kg/m2 [facility] Body height 2023-05-26 09:12:00 157.5 cm [facility] Body weight 2023-05-26 09:12:00 87.091 kg [facility] BMI 2023-05-26 09:12:00 35.12 kg/m2 [facility] Respiratory rate 2023-04-02 16:35:00 18 /min [facility] Oxygen saturation in Arterial blood by Pulse oximetry 2023-04-02 16:35:00 98 /min [facility] Systolic blood pressure 2023-04-02 12:00:00 147 mm[Hg] [facility] Diastolic blood pressure 2023-04-02 12:00:00 97 mm[Hg] [facility] Heart rate 2023-04-02 12:00:00 106 /min [facility] Body temperature 2023-04-02 12:00:00 36.28 Radha [facility] Body height 2023-03-30 02:14:00 157.5 cm [facility] Body weight 2023-03-30 02:14:00 92.08 kg [facility] BMI 2023-03-30 02:14:00 37.13 kg/m2 [facility] Respiratory rate 2022-08-03 14:40:00 18 /min [facility] Systolic blood pressure 2022-08-03 12:13:00 112 mm[Hg] [facility] Diastolic blood pressure 2022-08-03 12:13:00 77 mm[Hg] [facility] Heart rate 2022-08-03 12:13:00 115 /min [facility] Oxygen saturation in Arterial blood by Pulse oximetry 2022-08-03 12:13:00 93 /min [facility] Body temperature 2022-08-03 12:00:00 36.83 Radha [facility] Body height 2022-08-02 21:52:00 160.2 cm [facility] Body weight 2022-08-02 21:52:00 95 kg [facility] BMI 2022-08-02 21:52:00 37.02 kg/m2 [facility] BP Systolic 2022-07-24 13:31:00 136 [...] Performing Clinician Source POCT-GLUCOSE METER 2023-09-08 08:40:00 Nabil [facility] CBC W/PLT COUNT & AUTO DIFFERENTIAL 2023-09-08 04:16:00 Joshua [facility] BASIC METABOLIC PANEL 2023-09-08 04:16:00 Joshua [facility] MAGNESIUM 2023-09-08 04:16:00 Joshua [facility] PHOSPHORUS 2023-09-08 04:16:00 Joshua [facility] CBC W/PLT COUNT & AUTO DIFFERENTIAL 2023-09-08 04:16:00 Joshua [facility] POCT-GLUCOSE METER 2023-09-07 21:29:00 Nabil [facility] XR KNEE 3 VIEWS LEFT 2023-09-07 19:21:02 Nabil [facility] VENOUS DOPPLER LEGS BILATERAL 2023-09-07 12:45:00 Joshua [facility] CBC W/PLT COUNT & AUTO DIFFERENTIAL 2023-09-07 03:17:00 Joshua [facility] BASIC METABOLIC PANEL 2023-09-07 03:17:00 Joshua [facility] MAGNESIUM 2023-09-07 03:17:00 Joshua [facility] PHOSPHORUS 2023-09-07 03:17:00 Joshua [facility] CBC W/PLT COUNT & AUTO DIFFERENTIAL 2023-09-07 03:17:00 Joshua [facility] POCT-GLUCOSE METER 2023-09-06 21:17:00 Nabil [facility] POCT-GLUCOSE METER 2023-09-06 18:37:00 Nabil [facility] POCT-GLUCOSE METER 2023-09-06 13:16:00 Nabil [facility] POCT-GLUCOSE METER 2023-09-06 08:21:00 Nabil [facility] CBC W/PLT COUNT & AUTO DIFFERENTIAL 2023-09-06 04:49:00 Joshua [facility] BASIC METABOLIC PANEL 2023-09-06 04:49:00 Joshua [facility] MAGNESIUM 2023-09-06 04:49:00 Joshua [facility] PHOSPHORUS 2023-09-06 04:49:00 Joshua [facility] CBC W/PLT COUNT & AUTO DIFFERENTIAL 2023-09-06 04:49:00 Joshua [facility] POCT-GLUCOSE METER 2023-09-05 21:24:[facility] WITH & WITHOUT IV CONTRAST 2023-09-05 11:25:07 Sandi Aleman [facility] POCT-GLUCOSE METER 2023-09-05 08:10:00 Nabil [facility] CBC W/PLT COUNT & AUTO DIFFERENTIAL 2023-09-05 04:44:00 Joshua [facility] BASIC METABOLIC PANEL 2023-09-05 04:44:00 Joshua [facility] MAGNESIUM 2023-09-05 04:44:00 Joshua [facility] PHOSPHORUS 2023-09-05 04:44:00 Joshua [facility] POCT-GLUCOSE METER 2023-09-05 04:44:00 Lisandra [facility] CBC W/PLT COUNT & AUTO DIFFERENTIAL 2023-09-05 04:44:00 Joshua [facility] POCT-GLUCOSE METER 2023-09-04 21:38:00 Lisandra [facility] POCT-GLUCOSE METER 2023-09-04 15:42:[facility] SARS-COV2/INFLUENZA/RSV RT-PCR 2023-09-04 11:25:00 Jovani Mcnally [facility] POCT-GLUCOSE METER 2023-09-04 10:53:00 Ra Sabashul [facility] POCT-GLUCOSE METER 2023-09-04 08:04:00 Sabas Pankaj [facility] PROCALCITONIN 2023-09-04 06:56:00 Uli [facility] IRON, TIBC, % SAT. (WITHOUT FERRITIN) 2023-09-04 06:56:00 Uli [facility] FERRITIN 2023-09-04 06:56:00 Uli [facility] BLOOD CULTURE 2023-09-04 06:37:00 Randall [facility] MR LUMBAR SPINE WITHOUT IV CONTRAST 2023-09-04 05:47:25 Posts[place]ana [facility] MR THORACIC SPINE WITHOUT IV CONTRAST 2023-09-04 04:53:00 Melvi [facility] MR CERVICAL SPINE WITHOUT IV CONTRAST 2023-09-04 04:18:00 Melvi [facility] CT THORACIC SPINE WITHOUT IV CONTRAST 2023-09-04 03:08:00 Randall [facility] CT LUMBAR SPINE WITHOUT IV CONTRAST 2023-09-04 03:08:00 Randall [facility] LACTIC ACID, VENOUS 2023-09-04 01:42:00 Makayla [facility] TYPE AND SCREEN, AUTOMATED 2023-09-04 01:42:00 Makayla [facility] CBC W/PLT COUNT & AUTO DIFFERENTIAL 2023-09-04 00:51:00 Melvi [facility] COMPREHENSIVE METABOLIC PANEL 2023-09-04 00:51:00 Melvi [facility] MAGNESIUM 2023-09-04 00:51:00 Melvi [facility] PHOSPHORUS 2023-09-04 00:51:00 Melvi [facility] PROTHROMBIN TIME/INR 2023-09-04 00:51:00 Marixa Ogdenew Roberto [facility] APTT 2023-09-04 00:51:00 Marixa Ogdenew Roberto [facility] B-TYPE NATRIURETIC FACTOR (BNP) 2023-09-04 00:51:00 Marixa Ogdenew Roberto [facility] URINALYSIS WITHOUT MICROSCOPIC 2023-09-04 00:51:00 Chico Ogden [facility] RAPID DRUG SCREEN, URINE 2023-09-04 00:51:00 Melvi [place] Roberto [facility] D-DIMER 2023-09-04 00:51:00 London Loyola [facility] FIBRINOGEN 2023-09-04 00:51:00 Jorge Pereira [facility] CBC W/PLT COUNT & AUTO DIFFERENTIAL 2023-09-04 00:51:00 Chico Ogden [facility] EKG-SCANNED 2023-09-04 00:00:00 Provider, Default Scanning [facility] LACTIC ACID WHOLE BLOOD 2023-08-12 20:31:00 Brian Bryan [facility] COMP. METABOLIC PANEL (58883) 2023-08-12 20:29:00 Brian Bryan [facility] CBC WITH DIFF 2023-08-12 20:29:00 Brian Bryan [facility] CONSENT/REFUSAL FOR DIAGNOSI S AND TREATMENT 2023-08-12 19:43:16 Doctor Unassigned, [place] [facility] TRANSESOPHAGEAL ECHO 2023-06-16 11:05:00 Aydee Go [facility] T SPOT TB 2023-06-15 04:51:00 [facility]-GLUCAN WITH REFLEX TO TITER 2023-06-15 04:51:00 [facility] ASPERGILLUS GALACTOMANNAN ANTIGEN 2023-06-15 04:51:00 Rossy [facility] VANCOMYCIN LEVEL, TROUGH 2023-06-15 04:51:00 Kaylene Mendosa [facility] T-SPOT(R).TB (QUEST) 2023-06-15 04:27:00 System, Provider Not In [facility] T-SPOT(R).TB (QUEST) 2023-06-15 04:27:00 System, Provider Not In [facility] ECHO W CONTRAST & DOPPLER 2023-06-14 09:22:00 [facility] HEMOGLOBIN A1C 2023-06-14 04:08:00 Cara Burgess [facility] CBC (HEMOGRAM ONLY) 2023-06-14 04:08:00 [facility] BASIC METABOLIC PANEL 2023-06-14 04:08:00 [facility] CRYPTOCOCCAL ANTIGEN 2023-06-13 17:21:00 Lauren Blair [facility] HC LAB HIV-1 AG W/HIV-1&2 AB 2023-06-13 17:21:00 Lauren Blair [facility] VENOUS DOPPLER ARM, LEFT 2023-06-13 17:20:00 Cara Burgess [facility] LEGIONELLA ANTIGEN, URINE 2023-06-13 17:00:00 [facility] SPUTUM CULTURE + GRAM STAIN 2023-06-13 14:33:00 [facility] MR LUMBAR SPINE WITH & WITHOUT IV CONTRAST 2023-06-13 13:03:47 Burt Nelson [facility] ECG 12-LEAD 2023-06-13 11:47:02 [facility] ECG 12-LEAD 2023-06-13 11:47:02 Unknown, Hl7 Doctor [facility] MRSA SCREEN 2023-06-13 09:19:00 [facility] CBC W/PLT COUNT & AUTO DIFFERENTIAL 2023-06-13 06:03:00 Cara Burgess [facility] COMPREHENSIVE METABOLIC PANEL 2023-06-13 06:03:00 Cara Burgess [facility] PROTHROMBIN TIME/INR 2023-06-13 06:03:00 Cara Burgess [facility] CREATINE KINASE (CK) 2023-06-13 06:03:00 Torreymike Nazariocory [facility] CBC W/PLT COUNT & AUTO DIFFERENTIAL 2023-06-13 06:03:00 Cara Burgess [facility] BLOOD CULTURE 2023-06-13 06:02:00 Cara Burgess [facility] CBC W/PLT COUNT & AUTO DIFFERENTIAL 2023-06-02 04:41:00 Sunil Chu [facility] BASIC METABOLIC PANEL 2023-06-02 04:41:00 Sunil Chu [facility] MAGNESIUM 2023-06-02 04:41:00 Sunil Chu [facility] PHOSPHORUS 2023-06-02 04:41:00 Sunil Chu [facility] CBC W/PLT COUNT & AUTO DIFFERENTIAL 2023-06-02 04:41:00 Sunil Chu [facility] XR SPINE LUMBAR 1 VIEW 2023-06-01 10:31:00 MccormickAdam [facility] XR SPINE LUMBAR 1 VIEW 2023-06-01 09:46:00 JoseAdam [facility] LAMINECTOMY, SPINE, LUMBAR 2023-06-01 09:10:00 MccormickAdam [facility] PROCEDURE W/ C-ARM 2023-06-01 09:10:00 JoseAdam [facility] LAMINECTOMY, SPINE, LUMBAR 2023-06-01 07:30:00 JoseAdam [facility] PROCEDURE W/ C-ARM 2023-06-01 07:30:00 Mccormick Adam [facility] SCREEN, URINE 2023-06-01 04:33:00 MccormickAdam [facility] BASIC METABOLIC PANEL 2023-05-31 22:55:00 Dallas Gomez [facility] CBC W/PLT COUNT & AUTO DIFFERENTIAL 2023-05-31 22:55:00 Dallas Gomez [facility] PT/APTT 2023-05-31 22:55:[address] [facility] CBC W/PLT COUNT & AUTO DIFFERENTIAL 2023-05-31 22:55:[address] CT NECK SOFT TISSUE WITHOUT IV CONTRAST 2023-05-31 09:39:30 [facility] TYPE AND SCREEN, AUTOMATED 2023-05-31 09:13:00 [facility] BASIC METABOLIC PANEL 2023-05-29 06:43:00 [facility] CBC W/PLT COUNT & AUTO DIFFERENTIAL 2023-05-29 06:43:00 [facility] CBC W/PLT COUNT & AUTO DIFFERENTIAL 2023-05-29 06:43:00 [facility] XR SPINE CERVICAL 2 OR 3 VIEWS 2023-05-28 18:57:00 [facility] FL FLUORO NON-SPECIFIC UP TO 1 HOUR 2023-05-28 10:48:00 Jose [facility] [place] FLUORO NON-SPECIFIC UP TO 1 HOUR 2023-05-28 10:07[facility], CERVICAL, ANTERIOR APPROACH, WITH FUSION 2023-05-28 08:15:00 Jose [facility] INSERTION, HARDWARE, SPINAL 2023-05-28 08:15:00 Jose [facility] PROCEDURE, ALLOGRAFT, FOR SPINE SURGERY 2023-05-28 08:15:00 Jose [facility] AUTOGRAFT FOR SPINE SURGERY 2023-05-28 08:15:00 Jose [facility] PROCEDURE W/ C-ARM 2023-05-28 08:15[facility]00 [facility] MONITORING, INTRAOPERATIVE 2023-05-28 08:15:00 Jose Adam [facility] PROCEDURE, USING OPERATING MICROSCOPE 2023-05-28 08:15:00 Adam Garcia [facility] HCG, QUANTITATIVE, 2023-05-28 07:42:00 RamyaYue jain Dumont [facility] TYPE AND SCREEN, AUTOMATED 2023-05-28 07:42:00 Ketan Monet [facility] XR CHEST 1 VIEW PORTABLE / BEDSIDE 2023-04-01 15:32:16 Thomas Lozoya [facility] B-TYPE NATRIURETIC FACTOR (BNP) 2023-04-01 13:32:00 Thomas Lozoya [facility] ECHO W CONTRAST & DOPPLER 2023-03-31 20:18:37 Jasen [facility] MR CERVICAL SPINE WITHOUT IV CONTRAST 2023-03-31 09:25:00 Selin Lewis [facility] CBC (HEMOGRAM ONLY) 2023-03-31 03:45:00 Jasen [facility] COMPREHENSIVE METABOLIC PANEL 2023-03-31 03:45:00 Jasen [facility] ARTERIAL DOPPLER LEGS BILATERAL 2023-03-30 [facility]/ [facility]OPPLER[facility] ONLY 2023-03-30 15:44:00 Jasen [facility] ECG 12-LEAD 2023-03-30 13:06:22 Jasen [facility] ECG 12-LEAD 2023-03-30 13:06:22 Unknown, Hl7 [facility] MR THORACIC SPINE WITHOUT IV CONTRAST 2023-03-30 12:29:58 [facility] WITHOUT IV CONTRAST 2023-03-30 11:58:00 Gloria Reyes [facility] EEG AWAKE AND DROWSY 2023-03-30 09:57:53 [facility] 2023-03-30 09:06:00 Liudmila Smart [facility] URINALYSIS W/ REFLEX URINE CULTURE 2023-03-30 03:54:00 Gloria Reyes [facility] CBC (HEMOGRAM ONLY) 2023-03-30 03:52:00 Mariah Aldridge [facility] COMPREHENSIVE METABOLIC PANEL 2023-03-30 03:52:00 JasenMariah [facility] HEMOGLOBIN A1C 2023-03-30 03:52:00 Peteneena Mariah [facility] PT/APTT 2023-03-30 03:52:00 Thomas Lozoya [facility] EKG-SCANNED 2023-03-29 00:00:00 Provider, Default Scanning [facility] CT HEAD WO CONTRAST 2022-12-11 18:36:49 Alfonso Alvarado [facility] URINE DRUG (IMMUNOASSAY) - COMPREHENSIVE DRUG SCREEN 2022-12-11 17:13:00 Alfonso Alvarado [facility] URINALYSIS 2022-12-11 17:13:00 Alfon[address] Alvarado [facility] CT CHEST PULMONARY ANGIOGRAM 2022-12-11 16:26:39 Alfonso Alvarado [facility] MAGNESIUM 2022-12-11 14:57:00 Alfonso Alvarado [facility] COMP. METABOLIC PANEL ([id number]) 2022-12-11 14:57:00 Alfonso Alvarado [facility] D-DIMER 2022-12-11 14:15:00 Alfonso Alvarado [facility] XR CHEST 1 VW 2022-12-11 14:10:26 Alfonso Alvarado [facility] TROPONIN I 2022-12-11 14:02:00 Alfonso Alvarado [facility] CBC WITH DIFF 2022-12-11 14:02:00 Alfonso Alvarado [facility] N-TERMINAL PRO-BNP 2022-12-11 14:02:00 Alfonso Alvarado [facility] HB ECG ROUTINE & RHYTHM STRIP 2022-12-11 14:01:08 Alfonso Alvarado [facility] CONSENT/REFUSAL FOR DIAGNOSI S AND TREATMENT 2022-12-11 13:52:01 Doctor Unassigned, [place] [facility] ECG 12-LEAD 2022-08-03 05:03:32 Unknown, Hl7 [facility] ECG 12-LEAD 2022-08-03 05:03:32 Unknown, Hl7 [facility] LIPID PANEL 2022-08-02 21:14:00 [facility] TSH/FREE T4 IF INDICATED 2022-08-02 21:14:00 [facility] VITAMIN B12 2022-08-02 21:14:00 [facility] HEMOGLOBIN A1C 2022-08-02 21:14:00 [facility] COMPREHENSIVE METABOLIC PANEL 2022-08-02 21:14:00 [facility] CBC W/PLT COUNT & AUTO DIFFERENTIAL 2022-08-02 21:14:00 [facility] RPR 2022-08-02 21:14:00 [facility] HC LAB HIV-1 AG W/HIV-1&2 AB 2022-08-02 21:14:00 [facility] C-REACTIVE PROTEIN 2022-08-02 21:14:00 [facility] CBC W/PLT COUNT & AUTO DIFFERENTIAL 2022-08-02 21:14:00 [facility] EKG-SCANNED 2022-08-02 00:00:00 Provider, Default Scanning [facility] CT HEAD WO CONTRAST 2022-08-01 23:52:15 Lorenza Lowry [facility] GALV ONLY - INFLUENZA A B RS V PCR 2022-08-01 18:28:00 Letitia Chambers [facility] TRANSTHORACIC ECHO (TTE) COMPLETE W/ CONTRAST 2022-08-01 14:42:00 Kylee Montez [facility] MAGNESIUM 2022-08-01 10:42:00 Lorenza Lowry [facility] BASIC METABOLIC PANEL (NA, K , CL, CO2, GLUCOSE, BUN, CREATININE, CA) 2022-08-01 10:42:00 Lorenza Lowry [facility] CBC WITH DIFF 2022-08-01 10:42:00 Lorenza Lowry [facility] N-TERMINAL PRO-BNP 2022-08-01 10:42:00 Kylee Montez [facility] POCT GLUCOSE (AUTOMATED) 2022-08-01 06:56:00 Lorenza Lowry [facility] CRITICAL CARE 2022-07-31 22:31:[facility]31 20:52[facility] (IMMUNOASSAY) - COMPREHENSIVE DRUG SCREEN W/O REFLEX 2022-07-31 20:52:00 [facility] CHEST 1 VW 2022-07-31 18:45:17 [facility] LIPASE 2022-07-31 17:58:00 [facility] TROPONIN I 2022-07-31 17:58:00 [facility] COMP. METABOLIC PANEL ([id number]) 2022-07-31 17:58:00 [facility] WITH DIFF 2022-07-31 17:58:00 [facility] PROTHROMBIN TIME / INR 2022-07-31 17:58:00 [facility] ACTIVATED PARTIAL THRMPLAS DAVID 2022-07-31 17:58:00 [facility] N-TERMINAL PRO-BNP 2022-07-31 17:58:00 [facility]OUTINE & RHYTHM STRIP 2022-07-31 17:46:28 [facility] NOTICE OF PRIVACY PRACTICES 2022-07-31 17:35:38 Doctor Unassigned, [place] [facility] CONSENT/REFUSAL FOR DIAGNOSI S AND TREATMENT 2022-07-31 17:35:13 Doctor Unassigned, [place] [facility] PHOSPHORUS 2022-05-08 05:51:00 Shefali Azeem [facility] MAGNESIUM 2022-05-08 05:51:00 Shefali [facility] BASIC METABOLIC PANEL (NA, K , CL, CO2, GLUCOSE, BUN, CREATININE, CA) 2022-05-08 05:51:00 Shefali [facility] CBC WITH DIFF 2022-05-08 05:51:00 Shefali [facility] BASIC METABOLIC PANEL (NA, K , CL, CO2, GLUCOSE, BUN, CREATININE, CA) 2022-05-07 07:09:00 John Cintron [facility] CBC WITH DIFF 2022-05-07 07:09:00 John Cintron [facility] POCT GLUCOSE (AUTOMATED) 2022-05-07 01:16:00 Brandyn Ibrahim [facility] HB ABO GROUPING 2022-05-06 05:07:00 [facility]OL[facility] PANEL (NA, K , CL, CO2, GLUCOSE, BUN, CREATININE, CA) 2022-05-06 05:04:00 Shefali [facility] CBC WITH DIFF 2022-05-06 05:04:00 Shefali [facility] KEPPRA (LEVETIRACETAM) 2022-05-06 05:04:00 Shefali [facility] MR LUMBAR SPINE WO CONTRAST 2022-05-06 02:54:37 Ender Monet [facility] ELECTROENCEPHALOGRAM 2022-05-06 00:00:00 John Cintron [facility] BASIC METABOLIC PANEL (NA, K , CL, CO2, GLUCOSE, BUN, CREATININE, CA) 2022-05-05 07:57:00 Ismael Dunn [facility] CBC WITH DIFF 2022-05-05 07:57:00 Ismael Dunn [facility] PROTHROMBIN TIME / INR 2022-05-05 07:57:00 Ismael uDnn [facility] ACTIVATED PARTIAL THRMPLAS DAVID 2022-05-05 07:57:00 Ismael Dunn [facility] FIBRINOGEN 2022-05-05 07:57:00 Ismael Dunn [facility] EMERGENCY SERVICES AGREEMENT S AND AUTHORIZATIONS 2022-05-04 05:01:00 Doctor Unassigned, [place] [facility] VITAMIN D, 25-OH 2022-04-15 16:53:00 Sen Toledo [facility] MR THORACIC SPINE WO CONTRAST 2022-04-15 11:56:19 Harshil [facility] MR CERVICAL SPINE WO CONTRAST 2022-04-15 11:20:00 Harshil [facility] BASIC METABOLIC PANEL (NA, K , CL, CO2, GLUCOSE, BUN, CREATININE, CA) 2022-04-15 10:36:00 Charmaine Morataya [facility] TEST, URINE 2022-04-15 04:39:00 Harshil [facility] URINE DRUG (IMMUNOASSAY) - COMPREHENSIVE DRUG SCREEN 2022-04-15 04:39:00 Harshil [facility] URINALYSIS 2022-04-15 04:39:00 Harshil [facility] TRANSTHORACIC ECHO (TTE) COMPLETE W/ CONTRAST 2022-04-14 16:37:03 Harshil [facility] KEPPRA (LEVETIRACETAM) 2022-04-14 15:30:00 Harshil [facility] MAGNESIUM 2022-04-14 10:03:00 Harshil [facility] BASIC METABOLIC PANEL (NA, K , CL, CO2, GLUCOSE, BUN, CREATININE, CA) 2022-04-14 10:03:00 Harshil [facility] MR LUMBAR SPINE WO CONTRAST 2022-04-14 02:48:12 Harshil [facility] MR STROKE BRAIN WO CONTRAST 2022-04-14 02:29:[address] [facility] [address] STROKE ANGIOGRAM HEAD 2022-04-13 18:40:00 Sapna Vargas [facility] CT STROKE ANGIOGRAM NECK 2022-04-13 18:40:00 Sapna Vargas [facility] CT STROKE HEAD WO CONTRAST 2022-04-13 18:36:00 Sapna Vargas [facility] TROPONIN I 2022-04-13 18:17:00 Sapna Vargas [facility] THYROID STIMULATING HORMONE 2022-04-13 18:17:00 Harshil Soumya [facility] BASIC METABOLIC PANEL (NA, K , CL, CO2, GLUCOSE, BUN, CREATININE, CA) 2022-04-13 18:17:00 Sapna Vargas [facility] LIPID PANEL ([id number])(TOTAL CHOLESTEROL, TRIGLYCERIDES, HDL) 2022-04-13 18:17:00 Harshil Soumya [facility] CBC WITHOUT DIFF 2022-04-13 18:17:00 Sapna Vargas [facility] GLYCOSYLATED HEMOGLOBIN (A1C) 2022-04-13 18:17:00 Harshil [facility] PROTHROMBIN TIME / INR 2022-04-13 18:17:00 Sapna Vargas [facility] ACTIVATED PARTIAL THRMPLAS DAVID 2022-04-13 18:17:00 Sapna Vargas [facility] COVID-19 (ID NOW RAPID TESTING) 2022-04-13 18:17:00 Sapna Vargas [facility] LAB ONLY COVID INTERPRETATION 2022-04-13 18:17:00 Sapna Vargas [facility] HB ECG ROUTINE & RHYTHM STRIP 2022-04-13 18:15:49 Sapna Vargas [facility] CONSENT/REFUSAL FOR DIAGNOSI S AND TREATMENT 2022-04-13 18:05:14 Doctor Unassigned, [place] [facility] HOSPITAL ADMISSION 2022-04-13 05:01:00 Doctor Unassigned, [place] [facility] SARS-COV-2 COVID-19 VACCINE 14 YRS+,0.3ML,IM ([facility] - [facility]) 2022-02-19 15:21:12 Doctor Unassigned, [place] URINE DRUG (IMMUNOASSAY) - COMPREHENSIVE DRUG SCREEN W/O REFLEX 2021-11-23 21:21:00 Nichelle Virk [facility] CT HEAD WO CONTRAST 2021-11-23 20:58:00 Nichelle Virk [facility] POCT TEST 2021-11-23 20:46:00 Nichelle Virk [facility] URINALYSIS 2021-11-23 20:43:00 Nichelle Virk [facility] LIPASE 2021-11-23 20:27:00 Nichelle Virk [facility] TROPONIN I 2021-11-23 20:27:00 Nichelle Virk [facility] COMP. METABOLIC PANEL ([id number]) 2021-11-23 20:27:00 Nichelle Virk [facility] CBC WITH DIFF 2021-11-23 20:27:00 Nichelle Virk [facility] POCT GLUCOSE (AUTOMATED) 2021-11-23 20:15:00 Doctor Unassigned, [place] [facility] SARS-COV-2 COVID-19 VACCINE,0.3ML,IM (PFIZER) 2021-05-24 14:23:12 Doctor Unassigned, [place] [facility] SARS-COV-2 COVID-19 VACCINE,0.3ML,IM (PFIZER) 2021-05-03 14:59:29 Doctor Unassigned, [place] [facility] EMERGENCY SERVICES AGREEMENT S AND AUTHORIZATIONS 2021-04-16 05:01:00 Doctor Unassigned, [place] [facility] URINALYSIS 2021-03-17 03:09:00 Fabrice Chakraborty [facility] XR CHEST 1 VW 2021-03-17 01:45:07 [facility] TROPONIN I 2021-03-17 01:35:00 Fabrice Chakraborty [facility] COMP. METABOLIC PANEL ([id number]) 2021-03-17 01:35:00 Fabrice Chakraborty [facility] CBC WITH DIFF 2021-03-17 01:35:00 Fabrice Chakraborty [facility] N-TERMINAL PRO-BNP 2021-03-17 01:35:00 [facility] COVID-19 (ID NOW RAPID TESTING) 2021-03-17 00:58:00 Brian Bryan [facility] CONSENT/REFUSAL FOR DIAGNOSI S AND TREATMENT 2021-03-17 00:32:59 Doctor Unassigned, [place] [facility] COVID-19 (ID NOW RAPID TESTING) 2021-02-19 17:04:00 [address]ali [address] [facility] CT ABDOMEN PELVIS W CONTRAST 2021-02-19 16:41:18 Anali Monroy [facility] LIPASE 2021-02-19 15:58:00 Anali Monroy [facility] COMP. METABOLIC PANEL ([id number]) 2021-02-19 15:58:00 Anali Monroy [facility] CBC WITH DIFF 2021-02-19 15:58:00 Anali Monroy [facility] URINALYSIS 2021-02-19 15:58:00 Anali Monroy [facility] NOTICE OF PRIVACY PRACTICES 2021-02-19 15:30:46 Doctor Unassigned, [place] [facility] CONSENT/REFUSAL FOR DIAGNOSI S AND TREATMENT 2021-02-19 15:30:30 Doctor Unassigned, [place] [facility] Plan of Care Planned Activity Planned Date Details Comments Source Future Scheduled Test 2025-08-02 00:00:00 Lipid panel (procedure) [code = 91562000] [facility] Future Scheduled Test 2025-08-02 00:00:00 Lipid panel (procedure) [code = 15744690] [facility] Future Scheduled Test 2025-08-02 00:00:00 Lipid panel (procedure) [code = 82004815] [facility] Future Scheduled Test 2025-08-02 00:00:00 Lipid panel (procedure) [code = 01601680] [facility] Future Scheduled Test 2025-08-02 00:00:00 Lipid panel (procedure) [code = 20323717] [facility] Future Scheduled Test 2025-08-02 00:00:00 Lipid panel (procedure) [code = 72856701] [facility] Future Scheduled Test 2025-08-02 00:00:00 Lipid panel (procedure) [code = 83645567] [facility] Future Scheduled Test 2025-08-02 00:00:00 Lipid panel (procedure) [code = 24254223] [facility] Future Scheduled Test 2025-08-02 00:00:00 Lipid panel (procedure) [code = 87867525] [facility] Future Scheduled Test 2025-08-02 00:00:00 Lipid panel (procedure) [code = 78512918] [facility] Future Scheduled Test 2025-08-02 00:00:00 Lipid panel (procedure) [code = 79012654] [facility] Future Scheduled Test 2025-08-02 00:00:00 Lipid panel (procedure) [code = 75609081] [facility] Future Scheduled Test 2025-08-02 00:00:00 Lipid panel (procedure) [code = 91156167] [facility] Future Scheduled Test 2025-08-02 00:00:00 Lipid panel (procedure) [code = 38192273] [facility] Future Scheduled Test 2025-08-02 00:00:00 Lipid panel (procedure) [code = 91655796] [facility] Future Scheduled Test 2025-08-02 00:00:00 Lipid panel (procedure) [code = 88503855] [facility] Future Scheduled Test 2025-08-02 00:00:00 Lipid panel (procedure) [code = 48514872] [facility] Future Scheduled Test 2025-08-02 00:00:00 Lipid panel (procedure) [code = 80302770] [facility] Future Scheduled Test 2025-08-02 00:00:00 Lipid panel (procedure) [code = 50393687] [facility] Future Scheduled Test 2025-08-02 00:00:00 Lipid panel (procedure) [code = 39702032] [facility] Future Scheduled Test 2025-08-02 00:00:00 Lipid panel (procedure) [code = 34857599] [facility] Future Scheduled Test 2025-08-02 00:00:00 Lipid panel (procedure) [code = 90310831] [facility] Future Scheduled Test 2025-08-02 00:00:00 Lipid panel (procedure) [code = 52377644] [facility] Future Scheduled Test 2025-08-02 00:00:00 Lipid panel (procedure) [code = 26987018] [facility] Future Scheduled Test 2025-08-02 00:00:00 Lipid panel (procedure) [code = 54335481] [facility] Future Scheduled Test 2025-08-02 00:00:00 Lipid panel (procedure) [code = 26211084] [facility] Future Scheduled Test 2025-08-02 00:00:00 Lipid panel (procedure) [code = 40968432] [facility] Future Scheduled Test 2025-08-02 00:00:00 Lipid panel (procedure) [code = 57094982] [facility] Future Scheduled Test 2025-08-02 00:00:00 Lipid panel (procedure) [code = 05079257] [facility] Future Scheduled Test 2025-08-02 00:00:00 Lipid panel (procedure) [code = 31981643] [facility] Future Scheduled Test 2025-08-02 00:00:00 Lipid panel (procedure) [code = 63686788] [facility] Future Scheduled Test 2025-08-02 00:00:00 Lipid panel (procedure) [code = 88477200] [facility] Future Scheduled Test 2025-08-02 00:00:00 Lipid panel (procedure) [code = 91981194] [facility] Future Scheduled Test 2025-08-02 00:00:00 Lipid panel (procedure) [code = 62160627] [facility] Future Scheduled Test 2025-08-02 00:00:00 Lipid panel (procedure) [code = 73058659] [facility] Future Scheduled Test 2025-08-02 00:00:00 Lipid panel (procedure) [code = 05324094] [facility] Future Scheduled Test 2025-08-02 00:00:00 Lipid panel (procedure) [code = 33561956] [facility] Future Scheduled Test 2025-08-02 00:00:00 Lipid panel (procedure) [code = 65443990] [facility] Future Scheduled Test 2025-08-02 00:00:00 Lipid panel (procedure) [code = 46007302] [facility] Future Scheduled Test 2025-08-02 00:00:00 Lipid panel (procedure) [code = 74289692] [facility] Future Scheduled Test 2025-08-02 00:00:00 Lipid panel (procedure) [code = 93596767] [facility] Future Scheduled Test 2025-08-02 00:00:00 Lipid panel (procedure) [code = 58976104] [facility] Future Scheduled Test 2025-08-02 00:00:00 Lipid panel (procedure) [code = 05820542] [facility] Future Scheduled Test 2025-08-02 00:00:00 Lipid panel (procedure) [code = 02371913] [facility] Future Scheduled Test 2025-08-02 00:00:00 Lipid panel (procedure) [code = 46235723] [facility] Future Scheduled Test 2025-08-02 00:00:00 Lipid panel (procedure) [code = 49934484] [facility] Future Scheduled Test 2025-08-02 00:00:00 Lipid panel (procedure) [code = 72970881] [facility] Future Scheduled Test 2025-08-02 00:00:00 Lipid panel (procedure) [code = 09331252] [facility] Future Scheduled Test 2025-08-02 00:00:00 Lipid panel (procedure) [code = 46371305] [facility] Future Scheduled Test 2025-08-02 00:00:00 Lipid panel (procedure) [code = 43760581] [facility] Future Scheduled Test 2025-08-02 00:00:00 Lipid panel (procedure) [code = 47507014] [facility] Future Scheduled Test 2025-08-02 00:00:00 Lipid panel (procedure) [code = 05327674] [facility] Future Scheduled Test 2025-08-02 00:00:00 Lipid panel (procedure) [code = 23812460] [facility] Future Scheduled Test 2025-08-02 00:00:00 Lipid panel (procedure) [code = 25025664] [facility] Future Scheduled Test 2025-08-02 00:00:00 Lipid panel (procedure) [code = 50693471] [facility] Future Scheduled Test 2025-08-02 00:00:00 Lipid panel (procedure) [code = 54337049] [facility] Future Scheduled Test 2025-08-02 00:00:00 Lipid panel (procedure) [code = 66647524] [facility] Future Scheduled Test 2025-08-02 00:00:00 Lipid panel (procedure) [code = 18017883] [facility] Future Scheduled Test 2025-08-02 00:00:00 Lipid panel (procedure) [code = 15293503] [facility] Future Scheduled Test 2025-08-02 00:00:00 Lipid panel (procedure) [code = 70808669] [facility] Future Scheduled Test 2025-08-02 00:00:00 Lipid panel (procedure) [code = 54191452] [facility] Future Scheduled Test 2025-08-02 00:00:00 Lipid panel (procedure) [code = 16049928] [facility] Future Scheduled Test 2025-08-02 00:00:00 Lipid panel (procedure) [code = 61877217] [facility] Future Scheduled Test 2025-08-02 00:00:00 Lipid panel (procedure) [code = 44956732] [facility] Future Scheduled Test 2024-05-28 00:00:00 Tobacco Cessation Counseling and Screening (12+) [code = Tobacco Cessation Counseling and Screening (12+)] [facility] Future Scheduled Test 2024-05-28 00:00:00 Tobacco Cessation Counseling and Screening (12+) [code = Tobacco Cessation Counseling and Screening (12+)] [facility] Future Scheduled Test 2024-05-28 00:00:00 Tobacco Cessation Counseling and Screening (12+) [code = Tobacco Cessation Counseling and Screening (12+)] [facility] Future Scheduled Test 2024-05-28 00:00:00 Tobacco Cessation Counseling and Screening (12+) [code = Tobacco Cessation Counseling and Screening (12+)] [facility] Future Scheduled Test 2024-05-28 00:00:00 Tobacco Cessation Counseling and Screening (12+) [code = Tobacco Cessation Counseling and Screening (12+)] [facility] Future Scheduled Test 2024-05-28 00:00:00 Tobacco Cessation Counseling and Screening (12+) [code = Tobacco Cessation Counseling and Screening (12+)] [facility] Future Scheduled Test 2024-05-28 00:00:00 Tobacco Cessation Counseling and Screening (12+) [code = Tobacco Cessation Counseling and Screening (12+)] [facility] Scheduled Test 2024-05-28 00:00:00 Tobacco Cessation Counseling and Screening (12+) [code = Tobacco Cessation Counseling and Screening (12+)] [facility] Scheduled Test 2024-05-28 00:00:00 Tobacco Cessation Counseling and Screening (12+) [code = Tobacco Cessation Counseling and Screening (12+)] [facility] Scheduled Test 2024-05-28 00:00:00 Tobacco Cessation Counseling and Screening (12+) [code = Tobacco Cessation Counseling and Screening (12+)] [facility] Scheduled Test 2024-05-28 00:00:00 Tobacco Cessation Counseling and Screening (12+) [code = Tobacco Cessation Counseling and Screening (12+)] [facility] Scheduled Test 2024-05-28 00:00:00 Tobacco Cessation Counseling and Screening (12+) [code = Tobacco Cessation Counseling and Screening (12+)] [facility] Scheduled Test 2024-05-28 00:00:00 Tobacco Cessation Counseling and Screening (12+) [code = Tobacco Cessation Counseling and Screening (12+)] [facility] Scheduled Test 2024-05-28 00:00:00 Tobacco Cessation Counseling and Screening (12+) [code = Tobacco Cessation Counseling and Screening (12+)] [facility] Future Scheduled Test 2024-05-28 00:00:00 Tobacco Cessation Counseling and Screening (12+) [code = Tobacco Cessation Counseling and Screening (12+)] [facility] Scheduled Test 2024-05-28 00:00:00 Tobacco Cessation Counseling and Screening (12+) [code = Tobacco Cessation Counseling and Screening (12+)] [facility] Scheduled Test 2024-05-28 00:00:00 Tobacco Cessation Counseling and Screening (12+) [code = Tobacco Cessation Counseling and Screening (12+)] [facility] Scheduled Test 2024-05-28 00:00:00 Tobacco Cessation Counseling and Screening (12+) [code = Tobacco Cessation Counseling and Screening (12+)] [facility] Scheduled Test 2024-05-28 00:00:00 Tobacco Cessation Counseling and Screening (12+) [code = Tobacco Cessation Counseling and Screening (12+)] [facility] Scheduled Test 2024-05-28 00:00:00 Tobacco Cessation Counseling and Screening (12+) [code = Tobacco Cessation Counseling and Screening (12+)] [facility] Scheduled Test 2024-05-28 00:00:00 Tobacco Cessation Counseling and Screening (12+) [code = Tobacco Cessation Counseling and Screening (12+)] [facility] Scheduled Test 2024-05-28 00:00:00 Tobacco Cessation Counseling and Screening (12+) [code = Tobacco Cessation Counseling and Screening (12+)] [facility] Scheduled Test 2024-05-28 00:00:00 Tobacco Cessation Counseling and Screening (12+) [code = Tobacco Cessation Counseling and Screening (12+)] [facility] Scheduled Test 2024-05-28 00:00:00 Tobacco Cessation Counseling and Screening (12+) [code = Tobacco Cessation Counseling and Screening (12+)] [facility] Scheduled Test 2024-05-28 00:00:00 Tobacco Cessation Counseling and Screening (12+) [code = Tobacco Cessation Counseling and Screening (12+)] [facility] Scheduled Test 2024-05-28 00:00:00 Tobacco Cessation Counseling and Screening (12+) [code = Tobacco Cessation Counseling and Screening (12+)] [facility] Future Scheduled Test 2024-05-28 00:00:00 Tobacco Cessation Counseling and Screening (12+) [code = Tobacco Cessation Counseling and Screening (12+)] [facility] Scheduled Test 2024-05-28 00:00:00 Tobacco Cessation Counseling and Screening (12+) [code = Tobacco Cessation Counseling and Screening (12+)] [facility] Scheduled Test 2024-05-28 00:00:00 Tobacco Cessation Counseling and Screening (12+) [code = Tobacco Cessation Counseling and Screening (12+)] [facility] Scheduled Test 2024-05-28 00:00:00 Tobacco Cessation Counseling and Screening (12+) [code = Tobacco Cessation Counseling and Screening (12+)] [facility] Scheduled Test 2024-05-28 00:00:00 Tobacco Cessation Counseling and Screening (12+) [code = Tobacco Cessation Counseling and Screening (12+)] [facility] Scheduled Test 2024-05-28 00:00:00 Tobacco Cessation Counseling and Screening (12+) [code = Tobacco Cessation Counseling and Screening (12+)] [facility] Scheduled Test 2024-05-28 00:00:00 Tobacco Cessation Counseling and Screening (12+) [code = Tobacco Cessation Counseling and Screening (12+)] [facility] Scheduled Test 2024-05-28 00:00:00 Tobacco Cessation Counseling and Screening (12+) [code = Tobacco Cessation Counseling and Screening (12+)] [facility] Scheduled Test 2024-05-28 00:00:00 Tobacco Cessation Counseling and Screening (12+) [code = Tobacco Cessation Counseling and Screening (12+)] [facility] Scheduled Test 2024-05-28 00:00:00 Tobacco Cessation Counseling and Screening (12+) [code = Tobacco Cessation Counseling and Screening (12+)] [facility] Scheduled Test 2024-05-28 00:00:00 Tobacco Cessation Counseling and Screening (12+) [code = Tobacco Cessation Counseling and Screening (12+)] [facility] Scheduled Test 2024-05-28 00:00:00 Tobacco Cessation Counseling and Screening (12+) [code = Tobacco Cessation Counseling and Screening (12+)] [facility] Scheduled Test 2024-05-28 00:00:00 Tobacco Cessation Counseling and Screening (12+) [code = Tobacco Cessation Counseling and Screening (12+)] [facility] Scheduled Test 2024-05-26 00:00:00 Tobacco Cessation Counseling and Screening (12+) [code = Tobacco Cessation Counseling and Screening (12+)] [facility] Scheduled Test 2024-05-26 00:00:00 Tobacco Cessation Counseling and Screening (12+) [code = Tobacco Cessation Counseling and Screening (12+)] [facility] Scheduled Test 2024-03-20 00:00:00 Influenza Vaccine (Season Ended) [code = Influenza Vaccine (Season Ended)] [facility] Future Scheduled Test 2024-03-20 00:00:00 Influenza Vaccine (Season Ended) [code = Influenza Vaccine (Season Ended)] [facility] Future Scheduled Test 2024-03-20 00:00:00 Influenza Vaccine (Season Ended) [code = Influenza Vaccine (Season Ended)] [facility] Future Scheduled Test 2024-03-20 00:00:00 Influenza Vaccine (Season Ended) [code = Influenza Vaccine (Season Ended)] [facility] Future Scheduled Test 2023-07-20 00:00:00 DEPRESSION SCREENING (12+) [code = DEPRESSION SCREENING (12+)] [facility] Future Scheduled Test 2023-07-20 00:00:00 DEPRESSION SCREENING (12+) [code = DEPRESSION SCREENING (12+)] [facility] Future Scheduled Test 2023-07-20 00:00:00 DEPRESSION SCREENING (12+) [code = DEPRESSION SCREENING (12+)] [facility] Future Scheduled Test 2023-07-20 00:00:00 DEPRESSION SCREENING (12+) [code = DEPRESSION SCREENING (12+)] [facility] Future Scheduled Test 2023-07-20 00:00:00 DEPRESSION SCREENING (12+) [code = DEPRESSION SCREENING (12+)] [facility] Future Scheduled Test 2023-07-20 00:00:00 DEPRESSION SCREENING (12+) [code = DEPRESSION SCREENING (12+)] [facility] Future Scheduled Test 2023-07-20 00:00:00 DEPRESSION SCREENING (12+) [code = DEPRESSION SCREENING (12+)] [facility] Future Scheduled Test 2023-07-20 00:00:00 DEPRESSION SCREENING (12+) [code = DEPRESSION SCREENING (12+)] [facility] Future Scheduled Test 2023-07-20 00:00:00 DEPRESSION SCREENING (12+) [code = DEPRESSION SCREENING (12+)] [facility] Future Scheduled Test 2023-07-20 00:00:00 DEPRESSION SCREENING (12+) [code = DEPRESSION SCREENING (12+)] [facility] Future Scheduled Test 2023-07-20 00:00:00 DEPRESSION SCREENING (12+) [code = DEPRESSION SCREENING (12+)] [facility] Future Scheduled Test 2023-07-20 00:00:00 DEPRESSION SCREENING (12+) [code = DEPRESSION SCREENING (12+)] [facility] Future Scheduled Test 2023-07-20 00:00:00 DEPRESSION SCREENING (12+) [code = DEPRESSION SCREENING (12+)] [facility] Future Scheduled Test 2023-07-20 00:00:00 DEPRESSION SCREENING (12+) [code = DEPRESSION SCREENING (12+)] [facility] Future Scheduled Test 2023-07-20 00:00:00 DEPRESSION SCREENING (12+) [code = DEPRESSION SCREENING (12+)] [facility] Future Scheduled Test 2023-07-20 00:00:00 DEPRESSION SCREENING (12+) [code = DEPRESSION SCREENING (12+)] [facility] Future Scheduled Test 2023-07-20 00:00:00 DEPRESSION SCREENING (12+) [code = DEPRESSION SCREENING (12+)] [facility] Future Scheduled Test 2023-07-20 00:00:00 DEPRESSION SCREENING (12+) [code = DEPRESSION SCREENING (12+)] [facility] Future Scheduled Test 2023-07-20 00:00:00 DEPRESSION SCREENING (12+) [code = DEPRESSION SCREENING (12+)] [facility] Future Scheduled Test 2023-07-20 00:00:00 DEPRESSION SCREENING (12+) [code = DEPRESSION SCREENING (12+)] [facility] Future Scheduled Test 2023-07-20 00:00:00 DEPRESSION SCREENING (12+) [code = DEPRESSION SCREENING (12+)] [facility] Future Scheduled Test 2023-07-20 00:00:00 DEPRESSION SCREENING (12+) [code = DEPRESSION SCREENING (12+)] [facility] Future Scheduled Test 2023-07-20 00:00:00 DEPRESSION SCREENING (12+) [code = DEPRESSION SCREENING (12+)] [facility] Future Scheduled Test 2023-07-20 00:00:00 DEPRESSION SCREENING (12+) [code = DEPRESSION SCREENING (12+)] [facility] Future Scheduled Test 2023-07-20 00:00:00 DEPRESSION SCREENING (12+) [code = DEPRESSION SCREENING (12+)] [facility] Future Scheduled Test 2023-07-20 00:00:00 DEPRESSION SCREENING (12+) [code = DEPRESSION SCREENING (12+)] [facility] Future Scheduled Test 2023-07-20 00:00:00 DEPRESSION SCREENING (12+) [code = DEPRESSION SCREENING (12+)] [facility] Future Scheduled Test 2023-07-20 00:00:00 DEPRESSION SCREENING (12+) [code = DEPRESSION SCREENING (12+)] [facility] Future Scheduled Test 2023-07-20 00:00:00 DEPRESSION SCREENING (12+) [code = DEPRESSION SCREENING (12+)] [facility] Future Scheduled Test 2023-07-20 00:00:00 DEPRESSION SCREENING (12+) [code = DEPRESSION SCREENING (12+)] [facility] Future Scheduled Test 2023-07-20 00:00:00 DEPRESSION SCREENING (12+) [code = DEPRESSION SCREENING (12+)] [facility] Future Scheduled Test 2023-03-20 00:00:00 INFLUENZA VACCINE (Season Ended) [code = INFLUENZA VACCINE (Season Ended)] [facility] Future Scheduled Test 2023-03-20 00:00:00 INFLUENZA VACCINE (Season Ended) [code = INFLUENZA VACCINE (Season Ended)] [facility] Future Scheduled Test 2023-03-20 00:00:00 INFLUENZA VACCINE (Season Ended) [code = INFLUENZA VACCINE (Season Ended)] [facility] Future Scheduled Test 2023-03-20 00:00:00 INFLUENZA VACCINE (Season Ended) [code = INFLUENZA VACCINE (Season Ended)] [facility] Future Scheduled Test 2023-03-20 00:00:00 INFLUENZA VACCINE (Season Ended) [code = INFLUENZA VACCINE (Season Ended)] [facility] Future Scheduled Test 2023-03-20 00:00:00 INFLUENZA VACCINE (Season Ended) [code = INFLUENZA VACCINE (Season Ended)] [facility] Future Scheduled Test 2023-03-20 00:00:00 Influenza Vaccine (Season Ended) [code = Influenza Vaccine (Season Ended)] [facility] Future Scheduled Test 2023-03-20 00:00:00 Influenza Vaccine (Season Ended) [code = Influenza Vaccine (Season Ended)] [facility] Future Scheduled Test 2023-03-20 00:00:00 Influenza Vaccine (#1) [code = Influenza Vaccine (#1)] [facility] Future Scheduled Test 2023-03-20 00:00:00 Influenza Vaccine (#1) [code = Influenza Vaccine (#1)] [facility] Future Scheduled Test 2023-03-20 00:00:00 Influenza Vaccine (#1) [code = Influenza Vaccine (#1)] [facility] Future Scheduled Test 2023-03-20 00:00:00 Influenza Vaccine (#1) [code = Influenza Vaccine (#1)] [facility] Future Scheduled Test 2023-03-20 00:00:00 COVID-19 VACCINE ( season) [code = COVID-19 VACCINE ()] [facility] Future Scheduled Test 2023-03-20 00:00:00 Influenza Vaccine (#1) [code = Influenza Vaccine (#1)] [facility] Future Scheduled Test 2023-03-20 00:00:00 COVID-19 VACCINE ( season) [code = COVID-19 VACCINE ()] [facility] Future Scheduled Test 2023-03-20 00:00:00 Influenza Vaccine (#1) [code = Influenza Vaccine (#1)] [facility] Future Scheduled Test 2023-03-20 00:00:00 COVID-19 VACCINE ( season) [code = COVID-19 VACCINE ( season)] [facility] Future Scheduled Test 2023-03-20 00:00:00 Influenza Vaccine (#1) [code = Influenza Vaccine (#1)] [facility] Future Scheduled Test 2023-03-20 00:00:00 COVID-19 VACCINE ( season) [code = COVID-19 VACCINE ()] [facility] Future Scheduled Test 2023-03-20 00:00:00 Influenza Vaccine (#1) [code = Influenza Vaccine (#1)] [facility] Future Scheduled Test 2023-03-20 00:00:00 Influenza Vaccine (#1) [code = Influenza Vaccine (#1)] [facility] Future Scheduled Test 2023-03-20 00:00:00 COVID-19 VACCINE ( season) [code = COVID-19 VACCINE ()] [facility] Future Scheduled Test 2023-03-20 00:00:00 Influenza Vaccine (#1) [code = Influenza Vaccine (#1)] [facility] Scheduled Test 2023-03-20 00:00:00 COVID-19 VACCINE () [code = COVID-19 VACCINE ()] [facility] Future Scheduled Test 2023-03-20 00:00:00 Influenza Vaccine (#1) [code = Influenza Vaccine (#1)] [facility] Scheduled Test 2023-03-20 00:00:00 COVID-19 VACCINE ( season) [code = COVID-19 VACCINE ()] [facility] Scheduled Test 2023-03-20 00:00:00 Influenza Vaccine (#1) [code = Influenza Vaccine (#1)] [facility] Scheduled Test 2023-03-20 00:00:00 COVID-19 VACCINE ( season) [code = COVID-19 VACCINE ( season)] [facility] Scheduled Test 2023-03-20 00:00:00 Influenza Vaccine (#1) [code = Influenza Vaccine (#1)] [facility] Scheduled Test 2023-03-20 00:00:00 COVID-19 VACCINE ( season) [code = COVID-19 VACCINE ()] [facility] Scheduled Test 2023-03-20 00:00:00 Influenza Vaccine (#1) [code = Influenza Vaccine (#1)] [facility] Scheduled Test 2023-03-20 00:00:00 COVID-19 VACCINE ( season) [code = COVID-19 VACCINE ( season)] [facility] Scheduled Test 2023-03-20 00:00:00 Influenza Vaccine (#1) [code = Influenza Vaccine (#1)] [facility] Scheduled Test 2023-03-20 00:00:00 COVID-19 VACCINE ( season) [code = COVID-19 VACCINE ()] [facility] Scheduled Test 2023-03-20 00:00:00 Influenza Vaccine (#1) [code = Influenza Vaccine (#1)] [facility] Scheduled Test 2023-03-20 00:00:00 Influenza Vaccine (#1) [code = Influenza Vaccine (#1)] [facility] Scheduled Test 2023-03-20 00:00:00 COVID-19 VACCINE ( season) [code = COVID-19 VACCINE ()] [facility] Scheduled Test 2023-03-20 00:00:00 Influenza Vaccine (#1) [code = Influenza Vaccine (#1)] [facility] Scheduled Test 2023-03-20 00:00:00 COVID-19 VACCINE ( season) [code = COVID-19 VACCINE ( season)] [facility] Scheduled Test 2023-03-20 00:00:00 Influenza Vaccine (#1) [code = Influenza Vaccine (#1)] [facility] Scheduled Test 2023-03-20 00:00:00 COVID-19 VACCINE ( season) [code = COVID-19 VACCINE ( season)] [facility] Scheduled Test 2023-03-20 00:00:00 Influenza Vaccine (#1) [code = Influenza Vaccine (#1)] [facility] Scheduled Test 2023-03-20 00:00:00 COVID-19 VACCINE ( season) [code = COVID-19 VACCINE ( season)] [facility] Scheduled Test 2023-03-20 00:00:00 Influenza Vaccine (#1) [code = Influenza Vaccine (#1)] [facility] Scheduled Test 2023-03-20 00:00:00 COVID-19 VACCINE ( season) [code = COVID-19 VACCINE ()] [facility] Scheduled Test 2023-03-20 00:00:00 Influenza Vaccine (#1) [code = Influenza Vaccine (#1)] [facility] Scheduled Test 2023-03-20 00:00:00 COVID-19 VACCINE ( season) [code = COVID-19 VACCINE ()] [facility] Scheduled Test 2023-03-20 00:00:00 Influenza Vaccine (#1) [code = Influenza Vaccine (#1)] [facility] Scheduled Test 2023-03-20 00:00:00 Influenza Vaccine (#1) [code = Influenza Vaccine (#1)] [facility] Scheduled Test 2023-03-20 00:00:00 COVID-19 VACCINE ( season) [code = COVID-19 VACCINE ()] [facility] Scheduled Test 2023-03-20 00:00:00 Influenza Vaccine (#1) [code = Influenza Vaccine (#1)] [facility] Scheduled Test 2023-03-20 00:00:00 COVID-19 VACCINE ( season) [code = COVID-19 VACCINE ( season)] [facility] Scheduled Test 2023-03-20 00:00:00 Influenza Vaccine (#1) [code = Influenza Vaccine (#1)] [facility] Scheduled Test 2023-03-20 00:00:00 COVID-19 VACCINE () [code = COVID-19 VACCINE ( season)] [facility] Scheduled Test 2023-03-20 00:00:00 Influenza Vaccine (#1) [code = Influenza Vaccine (#1)] [facility] Scheduled Test 2023-03-20 00:00:00 COVID-19 VACCINE ( season) [code = COVID-19 VACCINE ()] [facility] Scheduled Test 2023-03-20 00:00:00 Influenza Vaccine (#1) [code = Influenza Vaccine (#1)] [facility] Scheduled Test 2023-03-20 00:00:00 Influenza Vaccine (#1) [code = Influenza Vaccine (#1)] [facility] Scheduled Test 2023-03-20 00:00:00 COVID-19 VACCINE ( season) [code = COVID-19 VACCINE ()] [facility] Scheduled Test 2023-03-20 00:00:00 Influenza Vaccine (#1) [code = Influenza Vaccine (#1)] [facility] Scheduled Test 2023-03-20 00:00:00 COVID-19 VACCINE ( season) [code = COVID-19 VACCINE ()] [facility] Scheduled Test 2023-03-20 00:00:00 Influenza Vaccine (#1) [code = Influenza Vaccine (#1)] [facility] Scheduled Test 2023-03-20 00:00:00 COVID-19 VACCINE ( season) [code = COVID-19 VACCINE ( season)] [facility] Scheduled Test 2023-03-20 00:00:00 Influenza Vaccine (#1) [code = Influenza Vaccine (#1)] [facility] Scheduled Test 2023-03-20 00:00:00 COVID-19 VACCINE ( season) [code = COVID-19 VACCINE ()] [facility] Scheduled Test 2023-03-20 00:00:00 Influenza Vaccine (#1) [code = Influenza Vaccine (#1)] [facility] Scheduled Test 2023-03-20 00:00:00 COVID-19 VACCINE ( season) [code = COVID-19 VACCINE ( season)] [facility] Scheduled Test 2023-03-20 00:00:00 Influenza Vaccine (#1) [code = Influenza Vaccine (#1)] [facility] Scheduled Test 2023-03-20 00:00:00 COVID-19 VACCINE ( season) [code = COVID-19 VACCINE ()] [facility] Scheduled Test 2023-03-20 00:00:00 Influenza Vaccine (#1) [code = Influenza Vaccine (#1)] [facility] Scheduled Test 2023-03-20 00:00:00 Influenza Vaccine (#1) [code = Influenza Vaccine (#1)] [facility] Scheduled Test 2023-03-20 00:00:00 COVID-19 VACCINE ( season) [code = COVID-19 VACCINE ( season)] [facility] Scheduled Test 2023-03-20 00:00:00 Influenza Vaccine (#1) [code = Influenza Vaccine (#1)] [facility] Scheduled Test 2023-03-20 00:00:00 COVID-19 VACCINE ( season) [code = COVID-19 VACCINE ( season)] [facility] Scheduled Test 2023-03-20 00:00:00 Influenza Vaccine (#1) [code = Influenza Vaccine (#1)] [facility] Scheduled Test 2023-03-20 00:00:00 COVID-19 VACCINE ( season) [code = COVID-19 VACCINE ( season)] [facility] Scheduled Test 2023-03-20 00:00:00 COVID-19 VACCINE ( season) [code = COVID-19 VACCINE ( season)] [facility] Scheduled Test 2023-03-20 00:00:00 COVID-19 VACCINE ( season) [code = COVID-19 VACCINE ()] [facility] Scheduled Test 2023-03-20 00:00:00 COVID-19 VACCINE ( season) [code = COVID-19 VACCINE ()] [facility] Scheduled Test 2023-03-20 00:00:00 Influenza Vaccine (#1) [code = Influenza Vaccine (#1)] [facility] Scheduled Test 2023-03-20 00:00:00 Influenza Vaccine (#1) [code = Influenza Vaccine (#1)] [facility] Scheduled Test 2023-03-20 00:00:00 Influenza Vaccine (#1) [code = Influenza Vaccine (#1)] [facility] Scheduled Test 2023-03-20 00:00:00 Influenza Vaccine (#1) [code = Influenza Vaccine (#1)] [facility] Scheduled Test 2023-03-20 00:00:00 Influenza Vaccine (#1) [code = Influenza Vaccine (#1)] [facility] Scheduled Test 2023-03-20 00:00:00 Influenza Vaccine (#1) [code = Influenza Vaccine (#1)] [facility] Scheduled Test 2023-03-20 00:00:00 Influenza Vaccine (#1) [code = Influenza Vaccine (#1)] [facility] Scheduled Test 2023-03-20 00:00:00 Influenza Vaccine (#1) [code = Influenza Vaccine (#1)] [facility] Scheduled Test 2023-03-20 00:00:00 Influenza Vaccine (#1) [code = Influenza Vaccine (#1)] [facility] Scheduled Test 2023-03-20 00:00:00 Influenza Vaccine (#1) [code = Influenza Vaccine (#1)] [facility] Scheduled Test 2023-03-20 00:00:00 COVID-19 VACCINE ( season) [code = COVID-19 VACCINE ( season)] [facility] Scheduled Test 2022-07-20 00:00:00 DEPRESSION SCREENING (12+) [code = DEPRESSION SCREENING (12+)] [facility] Scheduled Test 2022-07-20 00:00:00 DEPRESSION SCREENING (12+) [code = DEPRESSION SCREENING (12+)] [facility] Scheduled Test 2022-07-20 00:00:00 DEPRESSION SCREENING (12+) [code = DEPRESSION SCREENING (12+)] [facility] Scheduled Test 2022-07-20 00:00:00 DEPRESSION SCREENING (12+) [code = DEPRESSION SCREENING (12+)] [facility] Scheduled Test 2022-07-20 00:00:00 DEPRESSION SCREENING (12+) [code = DEPRESSION SCREENING (12+)] [facility] Scheduled Test 2022-07-20 00:00:00 DEPRESSION SCREENING (12+) [code = DEPRESSION SCREENING (12+)] [facility] Scheduled Test 2022-07-20 00:00:00 DEPRESSION SCREENING (12+) [code = DEPRESSION SCREENING (12+)] [facility] Scheduled Test 2022-07-20 00:00:00 DEPRESSION SCREENING (12+) [code = DEPRESSION SCREENING (12+)] [facility] Scheduled Test 2022-07-20 00:00:00 DEPRESSION SCREENING (12+) [code = DEPRESSION SCREENING (12+)] [facility] Scheduled Test 2022-07-20 00:00:00 DEPRESSION SCREENING (12+) [code = DEPRESSION SCREENING (12+)] [facility] Scheduled Test 2022-07-20 00:00:00 DEPRESSION SCREENING (12+) [code = DEPRESSION SCREENING (12+)] [facility] Scheduled Test 2022-07-20 00:00:00 DEPRESSION SCREENING (12+) [code = DEPRESSION SCREENING (12+)] [facility] Scheduled Test 2022-07-20 00:00:00 DEPRESSION SCREENING (12+) [code = DEPRESSION SCREENING (12+)] [facility] Scheduled Test 2022-07-20 00:00:00 DEPRESSION SCREENING (12+) [code = DEPRESSION SCREENING (12+)] [facility] Scheduled Test 2022-07-20 00:00:00 DEPRESSION SCREENING (12+) [code = DEPRESSION SCREENING (12+)] [facility] Scheduled Test 2022-07-20 00:00:00 DEPRESSION SCREENING (12+) [code = DEPRESSION SCREENING (12+)] [facility] Scheduled Test 2022-07-20 00:00:00 DEPRESSION SCREENING (12+) [code = DEPRESSION SCREENING (12+)] [facility] Scheduled Test 2022-07-20 00:00:00 DEPRESSION SCREENING (12+) [code = DEPRESSION SCREENING (12+)] [facility] Scheduled Test 2022-07-20 00:00:00 DEPRESSION SCREENING (12+) [code = DEPRESSION SCREENING (12+)] [facility] Scheduled Test 2022-07-20 00:00:00 DEPRESSION SCREENING (12+) [code = DEPRESSION SCREENING (12+)] [facility] Scheduled Test 2022-07-20 00:00:00 DEPRESSION SCREENING (12+) [code = DEPRESSION SCREENING (12+)] [facility] Scheduled Test 2022-07-20 00:00:00 DEPRESSION SCREENING (12+) [code = DEPRESSION SCREENING (12+)] [facility] Scheduled Test 2022-07-20 00:00:00 DEPRESSION SCREENING (12+) [code = DEPRESSION SCREENING (12+)] [facility] Scheduled Test 2022-07-20 00:00:00 DEPRESSION SCREENING (12+) [code = DEPRESSION SCREENING (12+)] [facility] Scheduled Test 2022-07-20 00:00:00 DEPRESSION SCREENING (12+) [code = DEPRESSION SCREENING (12+)] [facility] Scheduled Test 2022-07-20 00:00:00 DEPRESSION SCREENING (12+) [code = DEPRESSION SCREENING (12+)] [facility] Scheduled Test 2022-07-20 00:00:00 DEPRESSION SCREENING (12+) [code = DEPRESSION SCREENING (12+)] [facility] Scheduled Test 2022-07-20 00:00:00 DEPRESSION SCREENING (12+) [code = DEPRESSION SCREENING (12+)] [facility] Scheduled Test 2022-07-20 00:00:00 DEPRESSION SCREENING (12+) [code = DEPRESSION SCREENING (12+)] [facility] Scheduled Test 2022-07-20 00:00:00 DEPRESSION SCREENING (12+) [code = DEPRESSION SCREENING (12+)] [facility] Scheduled Test 2022-07-20 00:00:00 DEPRESSION SCREENING (12+) [code = DEPRESSION SCREENING (12+)] [facility] Scheduled Test 2022-07-20 00:00:00 DEPRESSION SCREENING (12+) [code = DEPRESSION SCREENING (12+)] [facility] Scheduled Test 2022-07-20 00:00:00 DEPRESSION SCREENING (12+) [code = DEPRESSION SCREENING (12+)] [facility] Scheduled Test 2022-06-21 00:00:00 COVID-19 VACCINE (4 - Booster for Pfizer series) [code = COVID-19 VACCINE (4 - Booster for Pfizer series)] [facility] Scheduled Test 2022-06-21 00:00:00 COVID-19 VACCINE (4 - Booster for Pfizer series) [code = COVID-19 VACCINE (4 - Booster for Pfizer series)] [facility] Scheduled Test 2022-06-21 00:00:00 COVID-19 VACCINE (4 - Booster for Pfizer series) [code = COVID-19 VACCINE (4 - Booster for Pfizer series)] [facility] Scheduled Test 2022-06-21 00:00:00 COVID-19 VACCINE (4 - Booster for Pfizer series) [code = COVID-19 VACCINE (4 - Booster for Pfizer series)] [facility] Scheduled Test 2022-04-16 00:00:00 COVID-19 VACCINE (4 - Booster for Pfizer series) [code = COVID-19 VACCINE (4 - Booster for Pfizer series)] [facility] Scheduled Test 2022-04-16 00:00:00 COVID-19 VACCINE (4 - Booster for Pfizer series) [code = COVID-19 VACCINE (4 - Booster for Pfizer series)] [facility] Scheduled Test 2022-04-16 00:00:00 COVID-19 VACCINE (4 - Booster for Pfizer series) [code = COVID-19 VACCINE (4 - Booster for Pfizer series)] [facility] Scheduled Test 2022-04-16 00:00:00 COVID-19 VACCINE (4 - Booster for Pfizer series) [code = COVID-19 VACCINE (4 - Booster for Pfizer series)] [facility] Scheduled Test 2022-04-16 00:00:00 COVID-19 VACCINE (4 - Booster for Pfizer series) [code = COVID-19 VACCINE (4 - Booster for Pfizer series)] [facility] Scheduled Test 2022-04-16 00:00:00 COVID-19 VACCINE (4 - Booster for Pfizer series) [code = COVID-19 VACCINE (4 - Booster for Pfizer series)] [facility] Scheduled Test 2022-04-16 00:00:00 COVID-19 VACCINE (4 - Booster for Pfizer series) [code = COVID-19 VACCINE (4 - Booster for Pfizer series)] [facility] Scheduled Test 2022-04-16 00:00:00 COVID-19 VACCINE (4 - Booster for Pfizer series) [code = COVID-19 VACCINE (4 - Booster for Pfizer series)] [facility] Scheduled Test 2022-04-16 00:00:00 COVID-19 VACCINE (4 - Booster for Pfizer series) [code = COVID-19 VACCINE (4 - Booster for Pfizer series)] [facility] Scheduled Test 2022-04-16 00:00:00 COVID-19 VACCINE (4 - Booster for Pfizer series) [code = COVID-19 VACCINE (4 - Booster for Pfizer series)] [facility] Scheduled Test 2022-04-16 00:00:00 COVID-19 VACCINE (4 - Booster for Pfizer series) [code = COVID-19 VACCINE (4 - Booster for Pfizer series)] [facility] Scheduled Test 2022-04-16 00:00:00 COVID-19 VACCINE (4 - Booster for Pfizer series) [code = COVID-19 VACCINE (4 - Booster for Pfizer series)] [facility] Scheduled Test 2022-04-16 00:00:00 COVID-19 VACCINE (4 - Booster for Pfizer series) [code = COVID-19 VACCINE (4 - Booster for Pfizer series)] [facility] Scheduled Test 2022-04-16 00:00:00 COVID-19 VACCINE (4 - Booster for Pfizer series) [code = COVID-19 VACCINE (4 - Booster for Pfizer series)] [facility] Scheduled Test 2022-04-16 00:00:00 COVID-19 VACCINE (4 - Booster for Pfizer series) [code = COVID-19 VACCINE (4 - Booster for Pfizer series)] [facility] Scheduled Test 2022-04-16 00:00:00 COVID-19 VACCINE (4 - Booster for Pfizer series) [code = COVID-19 VACCINE (4 - Booster for Pfizer series)] [facility] Scheduled Test 2022-04-16 00:00:00 COVID-19 VACCINE (4 - Booster for Pfizer series) [code = COVID-19 VACCINE (4 - Booster for Pfizer series)] [facility] Scheduled Test 2022-04-16 00:00:00 COVID-19 VACCINE (4 - Booster for Pfizer series) [code = COVID-19 VACCINE (4 - Booster for Pfizer series)] [facility] Scheduled Test 2022-04-16 00:00:00 COVID-19 VACCINE (4 - Booster for Pfizer series) [code = COVID-19 VACCINE (4 - Booster for Pfizer series)] [facility] Scheduled Test 2022-04-16 00:00:00 COVID-19 VACCINE (4 - Booster for Pfizer series) [code = COVID-19 VACCINE (4 - Booster for Pfizer series)] [facility] Scheduled Test 2022-04-16 00:00:00 COVID-19 VACCINE (4 - Pfizer series) [code = COVID-19 VACCINE (4 - Pfizer series)] [facility] Scheduled Test 2022-04-16 00:00:00 COVID-19 VACCINE (4 - Pfizer series) [code = COVID-19 VACCINE (4 - Pfizer series)] [facility] Scheduled Test 2022-04-16 00:00:00 COVID-19 VACCINE (4 - Pfizer series) [code = COVID-19 VACCINE (4 - Pfizer series)] [facility] Scheduled Test 2022-04-16 00:00:00 COVID-19 VACCINE (4 - Pfizer series) [code = COVID-19 VACCINE (4 - Pfizer series)] [facility] Scheduled Test 2022-04-16 00:00:00 COVID-19 VACCINE (4 - Booster for Pfizer series) [code = COVID-19 VACCINE (4 - Booster for Pfizer series)] [facility] Scheduled Test 2022-04-16 00:00:00 COVID-19 VACCINE (4 - Pfizer series) [code = COVID-19 VACCINE (4 - Pfizer series)] [facility] Scheduled Test 2022-03-20 00:00:00 INFLUENZA VACCINE (#1) [code = INFLUENZA VACCINE (#1)] [facility] Scheduled Test 2022-03-20 00:00:00 INFLUENZA VACCINE (#1) [code = INFLUENZA VACCINE (#1)] [facility] Scheduled Test 2022-03-20 00:00:00 INFLUENZA VACCINE (#1) [code = INFLUENZA VACCINE (#1)] [facility] Scheduled Test 2022-03-20 00:00:00 INFLUENZA VACCINE (#1) [code = INFLUENZA VACCINE (#1)] [facility] Scheduled Test 2022-01-14 00:00:00 SHINGLES VACCINES (1 of 2) [code = SHINGLES VACCINES (1 of 2)] [facility] Scheduled Test 2022-01-14 00:00:00 SHINGLES VACCINES (1 of 2) [code = SHINGLES VACCINES (1 of 2)] [facility] Scheduled Test 2022-01-14 00:00:00 SHINGLES VACCINES (1 of 2) [code = SHINGLES VACCINES (1 of 2)] [facility] Scheduled Test 2022-01-14 00:00:00 SHINGLES VACCINES (1 of 2) [code = SHINGLES VACCINES (1 of 2)] [facility] Scheduled Test 2022-01-14 00:00:00 SHINGLES VACCINES (1 of 2) [code = SHINGLES VACCINES (1 of 2)] [facility] Scheduled Test 2022-01-14 00:00:00 SHINGLES VACCINES (1 of 2) [code = SHINGLES VACCINES (1 of 2)] [facility] Scheduled Test 2022-01-14 00:00:00 SHINGLES VACCINES (1 of 2) [code = SHINGLES VACCINES (1 of 2)] [facility] Scheduled Test 2022-01-14 00:00:00 SHINGLES VACCINES (1 of 2) [code = SHINGLES VACCINES (1 of 2)] [facility] Scheduled Test 2022-01-14 00:00:00 SHINGLES VACCINES (1 of 2) [code = SHINGLES VACCINES (1 of 2)] [facility] Scheduled Test 2022-01-14 00:00:00 SHINGLES VACCINES (1 of 2) [code = SHINGLES VACCINES (1 of 2)] [facility] Scheduled Test 2022-01-14 00:00:00 SHINGLES VACCINES (1 of 2) [code = SHINGLES VACCINES (1 of 2)] [facility] Scheduled Test 2022-01-14 00:00:00 SHINGLES VACCINES (1 of 2) [code = SHINGLES VACCINES (1 of 2)] [facility] Scheduled Test 2022-01-14 00:00:00 SHINGLES VACCINES (1 of 2) [code = SHINGLES VACCINES (1 of 2)] [facility] Scheduled Test 2022-01-14 00:00:00 SHINGLES VACCINES (1 of 2) [code = SHINGLES VACCINES (1 of 2)] [facility] Scheduled Test 2022-01-14 00:00:00 SHINGLES VACCINES (1 of 2) [code = SHINGLES VACCINES (1 of 2)] [facility] Scheduled Test 2022-01-14 00:00:00 Screening for malignant neoplasm of lung (procedure) [code = 808439858] [facility] Scheduled Test 2022-01-14 00:00:00 SHINGLES VACCINES (1 of 2) [code = SHINGLES VACCINES (1 of 2)] [facility] Scheduled Test 2022-01-14 00:00:00 Screening for malignant neoplasm of lung (procedure) [code = [id number]] [facility] Scheduled Test 2022-01-14 00:00:00 SHINGLES VACCINES (1 of 2) [code = SHINGLES VACCINES (1 of 2)] [facility] Scheduled Test 2022-01-14 00:00:00 Screening for malignant neoplasm of lung (procedure) [code = [id number]] [facility] Scheduled Test 2022-01-14 00:00:00 SHINGLES VACCINES (1 of 2) [code = SHINGLES VACCINES (1 of 2)] [facility] Scheduled Test 2022-01-14 00:00:00 Screening for malignant neoplasm of lung (procedure) [code = [id number]] [facility] Scheduled Test 2022-01-14 00:00:00 SHINGLES VACCINES (1 of 2) [code = SHINGLES VACCINES (1 of 2)] [facility] Scheduled Test 2022-01-14 00:00:00 Screening for malignant neoplasm of lung (procedure) [code = [id number]] [facility] Scheduled Test 2022-01-14 00:00:00 SHINGLES VACCINES (1 of 2) [code = SHINGLES VACCINES (1 of 2)] [facility] Scheduled Test 2022-01-14 00:00:00 Screening for malignant neoplasm of lung (procedure) [code = [id number]] [facility] Scheduled Test 2022-01-14 00:00:00 SHINGLES VACCINES (1 of 2) [code = SHINGLES VACCINES (1 of 2)] [facility] Scheduled Test 2022-01-14 00:00:00 Screening for malignant neoplasm of lung (procedure) [code = [id number]] [facility] Scheduled Test 2022-01-14 00:00:00 SHINGLES VACCINES (1 of 2) [code = SHINGLES VACCINES (1 of 2)] [facility] Scheduled Test 2022-01-14 00:00:00 Screening for malignant neoplasm of lung (procedure) [code = [id number]] [facility] Scheduled Test 2022-01-14 00:00:00 SHINGLES VACCINES (1 of 2) [code = SHINGLES VACCINES (1 of 2)] [facility] Scheduled Test 2022-01-14 00:00:00 Screening for malignant neoplasm of lung (procedure) [code = [id number]] [facility] Scheduled Test 2022-01-14 00:00:00 SHINGLES VACCINES (1 of 2) [code = SHINGLES VACCINES (1 of 2)] [facility] Scheduled Test 2022-01-14 00:00:00 Screening for malignant neoplasm of lung (procedure) [code = 858712778] [facility] Scheduled Test 2022-01-14 00:00:00 SHINGLES VACCINES (1 of 2) [code = SHINGLES VACCINES (1 of 2)] [facility] Scheduled Test 2022-01-14 00:00:00 Screening for malignant neoplasm of lung (procedure) [code = 580683325] [facility] Scheduled Test 2022-01-14 00:00:00 SHINGLES VACCINES (1 of 2) [code = SHINGLES VACCINES (1 of 2)] [facility] Scheduled Test 2022-01-14 00:00:00 Screening for malignant neoplasm of lung (procedure) [code = 860156868] [facility] Scheduled Test 2022-01-14 00:00:00 SHINGLES VACCINES (1 of 2) [code = SHINGLES VACCINES (1 of 2)] [facility] Scheduled Test 2022-01-14 00:00:00 Screening for malignant neoplasm of lung (procedure) [code = 254160888] [facility] Scheduled Test 2022-01-14 00:00:00 SHINGLES VACCINES (1 of 2) [code = SHINGLES VACCINES (1 of 2)] [facility] Scheduled Test 2022-01-14 00:00:00 Screening for malignant neoplasm of lung (procedure) [code = 804047960] [facility] Scheduled Test 2022-01-14 00:00:00 SHINGLES VACCINES (1 of 2) [code = SHINGLES VACCINES (1 of 2)] [facility] Scheduled Test 2022-01-14 00:00:00 Screening for malignant neoplasm of lung (procedure) [code = 314897299] [facility] Scheduled Test 2022-01-14 00:00:00 SHINGLES VACCINES (1 of 2) [code = SHINGLES VACCINES (1 of 2)] [facility] Scheduled Test 2022-01-14 00:00:00 Screening for malignant neoplasm of lung (procedure) [code = [id number]] [facility] Future Scheduled Test 2022-01-14 00:00:00 SHINGLES VACCINES (1 of 2) [code = SHINGLES VACCINES (1 of 2)] [facility] Future Scheduled Test 2022-01-14 00:00:00 Screening for malignant neoplasm of lung (procedure) [code = [id number]] [facility] Future Scheduled Test 2022-01-14 00:00:00 SHINGLES VACCINES (1 of 2) [code = SHINGLES VACCINES (1 of 2)] [facility] Future Scheduled Test 2022-01-14 00:00:00 Screening for malignant neoplasm of lung (procedure) [code = 342330661] [facility] Future Scheduled Test 2022-01-14 00:00:00 SHINGLES VACCINES (1 of 2) [code = SHINGLES VACCINES (1 of 2)] [facility] Future Scheduled Test 2022-01-14 00:00:00 Screening for malignant neoplasm of lung (procedure) [code = 081111054] [facility] Future Scheduled Test 2022-01-14 00:00:00 Screening for malignant neoplasm of lung (procedure) [code = 099196104] [facility] Future Scheduled Test 2022-01-14 00:00:00 SHINGLES VACCINES (1 of 2) [code = SHINGLES VACCINES (1 of 2)] [facility] Future Scheduled Test 2022-01-14 00:00:00 SHINGLES VACCINES (1 of 2) [code = SHINGLES VACCINES (1 of 2)] [facility] Future Scheduled Test 2022-01-14 00:00:00 Screening for malignant neoplasm of lung (procedure) [code = 876072666] [facility] Future Scheduled Test 2022-01-14 00:00:00 SHINGLES VACCINES (1 of 2) [code = SHINGLES VACCINES (1 of 2)] [facility] Future Scheduled Test 2022-01-14 00:00:00 Screening for malignant neoplasm of lung (procedure) [code = 550339764] [facility] Future Scheduled Test 2022-01-14 00:00:00 SHINGLES VACCINES (1 of 2) [code = SHINGLES VACCINES (1 of 2)] [facility] Future Scheduled Test 2022-01-14 00:00:00 Screening for malignant neoplasm of lung (procedure) [code = 057769827] [facility] Future Scheduled Test 2022-01-14 00:00:00 SHINGLES VACCINES (1 of 2) [code = SHINGLES VACCINES (1 of 2)] [facility] Future Scheduled Test 2022-01-14 00:00:00 Screening for malignant neoplasm of lung (procedure) [code = 217261373] [facility] Future Scheduled Test 2022-01-14 00:00:00 Screening for malignant neoplasm of lung (procedure) [code = 053106196] [facility] Future Scheduled Test 2022-01-14 00:00:00 SHINGLES VACCINES (1 of 2) [code = SHINGLES VACCINES (1 of 2)] [facility] Future Scheduled Test 2022-01-14 00:00:00 SHINGLES VACCINES (1 of 2) [code = SHINGLES VACCINES (1 of 2)] [facility] Future Scheduled Test 2022-01-14 00:00:00 Screening for malignant neoplasm of lung (procedure) [code = 745306652] [facility] Future Scheduled Test 2022-01-14 00:00:00 SHINGLES VACCINES (1 of 2) [code = SHINGLES VACCINES (1 of 2)] [facility] Future Scheduled Test 2022-01-14 00:00:00 Screening for malignant neoplasm of lung (procedure) [code = 612763142] [facility] Future Scheduled Test 2022-01-14 00:00:00 SHINGLES VACCINES (1 of 2) [code = SHINGLES VACCINES (1 of 2)] [facility] Future Scheduled Test 2022-01-14 00:00:00 Screening for malignant neoplasm of lung (procedure) [code = 195673672] [facility] Future Scheduled Test 2022-01-14 00:00:00 SHINGLES VACCINES (1 of 2) [code = SHINGLES VACCINES (1 of 2)] [facility] Future Scheduled Test 2022-01-14 00:00:00 Screening for malignant neoplasm of lung (procedure) [code = 220948800] [facility] Future Scheduled Test 2022-01-14 00:00:00 SHINGLES VACCINES (1 of 2) [code = SHINGLES VACCINES (1 of 2)] [facility] Future Scheduled Test 2022-01-14 00:00:00 Screening for malignant neoplasm of lung (procedure) [code = 261200632] [facility] Future Scheduled Test 2022-01-14 00:00:00 SHINGLES VACCINES (1 of 2) [code = SHINGLES VACCINES (1 of 2)] [facility] Future Scheduled Test 2022-01-14 00:00:00 Screening for malignant neoplasm of lung (procedure) [code = 502628360] [facility] Future Scheduled Test 2022-01-14 00:00:00 Screening for malignant neoplasm of lung (procedure) [code = 155062714] [facility] Future Scheduled Test 2022-01-14 00:00:00 SHINGLES VACCINES (1 of 2) [code = SHINGLES VACCINES (1 of 2)] [facility] Future Scheduled Test 2022-01-14 00:00:00 SHINGLES VACCINES (1 of 2) [code = SHINGLES VACCINES (1 of 2)] [facility] Future Scheduled Test 2022-01-14 00:00:00 Screening for malignant neoplasm of lung (procedure) [code = 726712691] [facility] Future Scheduled Test 2022-01-14 00:00:00 SHINGLES VACCINES (1 of 2) [code = SHINGLES VACCINES (1 of 2)] [facility] Future Scheduled Test 2022-01-14 00:00:00 Screening for malignant neoplasm of lung (procedure) [code = 932510683] [facility] Future Scheduled Test 2022-01-14 00:00:00 SHINGLES VACCINES (1 of 2) [code = SHINGLES VACCINES (1 of 2)] [facility] Future Scheduled Test 2022-01-14 00:00:00 Screening for malignant neoplasm of lung (procedure) [code = 607226892] [facility] Future Scheduled Test 2022-01-14 00:00:00 SHINGLES VACCINES (1 of 2) [code = SHINGLES VACCINES (1 of 2)] [facility] Future Scheduled Test 2022-01-14 00:00:00 Screening for malignant neoplasm of lung (procedure) [code = 774558928] [facility] Future Scheduled Test 2022-01-14 00:00:00 SHINGLES VACCINES (1 of 2) [code = SHINGLES VACCINES (1 of 2)] [facility] Future Scheduled Test 2022-01-14 00:00:00 Screening for malignant neoplasm of lung (procedure) [code = 143628760] [facility] Future Scheduled Test 2022-01-14 00:00:00 SHINGLES VACCINES (1 of 2) [code = SHINGLES VACCINES (1 of 2)] [facility] Future Scheduled Test 2022-01-14 00:00:00 Screening for malignant neoplasm of lung (procedure) [code = 851331257] [facility] Future Scheduled Test 2022-01-14 00:00:00 SHINGLES VACCINES (1 of 2) [code = SHINGLES VACCINES (1 of 2)] [facility] Future Scheduled Test 2022-01-14 00:00:00 Screening for malignant neoplasm of lung (procedure) [code = 342535246] [facility] Future Scheduled Test 2022-01-14 00:00:00 SHINGLES VACCINES (1 of 2) [code = SHINGLES VACCINES (1 of 2)] [facility] Future Scheduled Test 2022-01-14 00:00:00 Screening for malignant neoplasm of lung (procedure) [code = 337281424] [facility] Future Scheduled Test 2022-01-14 00:00:00 SHINGLES VACCINES (1 of 2) [code = SHINGLES VACCINES (1 of 2)] [facility] Future Scheduled Test 2022-01-14 00:00:00 SHINGLES VACCINES (1 of 2) [code = SHINGLES VACCINES (1 of 2)] [facility] Scheduled Test 2022-01-14 00:00:00 SHINGLES VACCINES (1 of 2) [code = SHINGLES VACCINES (1 of 2)] [facility] Future Scheduled Test 2022-01-14 00:00:00 Screening for malignant neoplasm of lung (procedure) [code = 741817762] [facility] Future Scheduled Test 2022-01-14 00:00:00 SHINGLES VACCINES (1 of 2) [code = SHINGLES VACCINES (1 of 2)] [facility] Future Scheduled Test 2022-01-14 00:00:00 Screening for malignant neoplasm of lung (procedure) [code = 973672992] [facility] Future Scheduled Test 2022-01-14 00:00:00 SHINGLES VACCINES (1 of 2) [code = SHINGLES VACCINES (1 of 2)] [facility] Future Scheduled Test 2022-01-14 00:00:00 Screening for malignant neoplasm of lung (procedure) [code = 152033495] [facility] Future Scheduled Test 2022-01-14 00:00:00 SHINGLES VACCINES (1 of 2) [code = SHINGLES VACCINES (1 of 2)] [facility] Future Scheduled Test 2022-01-14 00:00:00 Screening for malignant neoplasm of lung (procedure) [code = 036380857] [facility] Future Scheduled Test 2022-01-14 00:00:00 SHINGLES VACCINES (1 of 2) [code = SHINGLES VACCINES (1 of 2)] [facility] Future Scheduled Test 2022-01-14 00:00:00 Screening for malignant neoplasm of lung (procedure) [code = 714512681] [facility] Future Scheduled Test 2022-01-14 00:00:00 SHINGLES VACCINES (1 of 2) [code = SHINGLES VACCINES (1 of 2)] [facility] Future Scheduled Test 2022-01-14 00:00:00 Screening for malignant neoplasm of lung (procedure) [code = 963898866] [facility] Future Scheduled Test 2022-01-14 00:00:00 SHINGLES VACCINES (1 of 2) [code = SHINGLES VACCINES (1 of 2)] [facility] Future Scheduled Test 2022-01-14 00:00:00 Screening for malignant neoplasm of lung (procedure) [code = 944704755] [facility] Future Scheduled Test 2022-01-14 00:00:00 SHINGLES VACCINES (1 of 2) [code = SHINGLES VACCINES (1 of 2)] [facility] Future Scheduled Test 2013-12-15 00:00:00 PNEUMOCOCCAL VACCINE 0-64 YRS (2 - PCV) [code = PNEUMOCOCCAL VACCINE 0-64 YRS (2 - PCV)] [facility] Future Scheduled Test 2013-12-15 00:00:00 PNEUMOCOCCAL VACCINE 0-64 YRS (2 - PCV) [code = PNEUMOCOCCAL VACCINE 0-64 YRS (2 - PCV)] [facility] Future Scheduled Test 2013-12-15 00:00:00 PNEUMOCOCCAL VACCINE 0-64 YRS (2 - PCV) [code = PNEUMOCOCCAL VACCINE 0-64 YRS (2 - PCV)] [facility] Future Scheduled Test 2013-12-15 00:00:00 PNEUMOCOCCAL VACCINE 0-64 YRS (2 - PCV) [code = PNEUMOCOCCAL VACCINE 0-64 YRS (2 - PCV)] [facility] Future Scheduled Test 2013-12-15 00:00:00 Pneumococcal Vaccine: 0-64 Years (2 - PCV) [code = Pneumococcal Vaccine: 0-64 Years (2 - PCV)] [facility] Future Scheduled Test 2013-12-15 00:00:00 Pneumococcal Vaccine: 0-64 Years (2 - PCV) [code = Pneumococcal Vaccine: 0-64 Years (2 - PCV)] [facility] Future Scheduled Test 2013-12-15 00:00:00 Pneumococcal Vaccine: 0-64 Years (2 - PCV) [code = Pneumococcal Vaccine: 0-64 Years (2 - PCV)] [facility] Future Scheduled Test 2013-12-15 00:00:00 Pneumococcal Vaccine: 0-64 Years (2 - PCV) [code = Pneumococcal Vaccine: 0-64 Years (2 - PCV)] [facility] Future Scheduled Test 2013-12-15 00:00:00 Pneumococcal Vaccine: 0-64 Years (2 - PCV) [code = Pneumococcal Vaccine: 0-64 Years (2 - PCV)] [facility] Future Scheduled Test 2013-12-15 00:00:00 Pneumococcal Vaccine: 0-64 Years (2 - PCV) [code = Pneumococcal Vaccine: 0-64 Years (2 - PCV)] [facility] Future Scheduled Test 2013-12-15 00:00:00 Pneumococcal Vaccine: 0-64 Years (2 - PCV) [code = Pneumococcal Vaccine: 0-64 Years (2 - PCV)] [facility] Future Scheduled Test 2013-12-15 00:00:00 Pneumococcal Vaccine: 0-64 Years (2 - PCV) [code = Pneumococcal Vaccine: 0-64 Years (2 - PCV)] [facility] Future Scheduled Test 2013-12-15 00:00:00 Pneumococcal Vaccine: 0-64 Years (2 - PCV) [code = Pneumococcal Vaccine: 0-64 Years (2 - PCV)] [facility] Future Scheduled Test 2013-12-15 00:00:00 Pneumococcal Vaccine: 0-64 Years (2 - PCV) [code = Pneumococcal Vaccine: 0-64 Years (2 - PCV)] [facility] Future Scheduled Test 2013-12-15 00:00:00 Pneumococcal Vaccine: 0-64 Years (2 - PCV) [code = Pneumococcal Vaccine: 0-64 Years (2 - PCV)] [facility] Future Scheduled Test 2013-12-15 00:00:00 Pneumococcal Vaccine: 0-64 Years (2 - PCV) [code = Pneumococcal Vaccine: 0-64 Years (2 - PCV)] [facility] Future Scheduled Test 2013-12-15 00:00:00 Pneumococcal Vaccine: 0-64 Years (2 - PCV) [code = Pneumococcal Vaccine: 0-64 Years (2 - PCV)] [facility] Future Scheduled Test 2013-12-15 00:00:00 Pneumococcal Vaccine: 0-64 Years (2 - PCV) [code = Pneumococcal Vaccine: 0-64 Years (2 - PCV)] [facility] Future Scheduled Test 2013-12-15 00:00:00 Pneumococcal Vaccine: 0-64 Years (2 - PCV) [code = Pneumococcal Vaccine: 0-64 Years (2 - PCV)] [facility] Future Scheduled Test 2013-12-15 00:00:00 Pneumococcal Vaccine: 0-64 Years (2 - PCV) [code = Pneumococcal Vaccine: 0-64 Years (2 - PCV)] [facility] Future Scheduled Test 2013-12-15 00:00:00 Pneumococcal Vaccine: 0-64 Years (2 - PCV) [code = Pneumococcal Vaccine: 0-64 Years (2 - PCV)] [facility] Future Scheduled Test 2013-12-15 00:00:00 Pneumococcal Vaccine: 0-64 Years (2 - PCV) [code = Pneumococcal Vaccine: 0-64 Years (2 - PCV)] [facility] Future Scheduled Test 2013-12-15 00:00:00 Pneumococcal Vaccine: 0-64 Years (2 - PCV) [code = Pneumococcal Vaccine: 0-64 Years (2 - PCV)] [facility] Future Scheduled Test 2013-12-15 00:00:00 Pneumococcal Vaccine: 0-64 Years (2 - PCV) [code = Pneumococcal Vaccine: 0-64 Years (2 - PCV)] [facility] Future Scheduled Test 2013-12-15 00:00:00 Pneumococcal Vaccine: 0-64 Years (2 of 2 - PCV) [code = Pneumococcal Vaccine: 0-64 Years (2 of 2 - PCV)] [facility] Future Scheduled Test 2013-12-15 00:00:00 Pneumococcal Vaccine: 0-64 Years (2 of 2 - PCV) [code = Pneumococcal Vaccine: 0-64 Years (2 of 2 - PCV)] [facility] Future Scheduled Test 2013-12-15 00:00:00 Pneumococcal Vaccine: 0-64 Years (2 of 2 - PCV) [code = Pneumococcal Vaccine: 0-64 Years (2 of 2 - PCV)] [facility] Future Scheduled Test 2013-12-15 00:00:00 Pneumococcal Vaccine: 0-64 Years (2 of 2 - PCV) [code = Pneumococcal Vaccine: 0-64 Years (2 of 2 - PCV)] [facility] Future Scheduled Test 2013-12-15 00:00:00 Pneumococcal Vaccine: 0-64 Years (2 of 2 - PCV) [code = Pneumococcal Vaccine: 0-64 Years (2 of 2 - PCV)] [facility] Future Scheduled Test 2013-12-15 00:00:00 Pneumococcal Vaccine: 0-64 Years (2 of 2 - PCV) [code = Pneumococcal Vaccine: 0-64 Years (2 of 2 - PCV)] [facility] Future Scheduled Test 2013-12-15 00:00:00 Pneumococcal Vaccine: 0-64 Years (2 of 2 - PCV) [code = Pneumococcal Vaccine: 0-64 Years (2 of 2 - PCV)] [facility] Future Scheduled Test 2013-12-15 00:00:00 Pneumococcal Vaccine: 0-64 Years (2 of 2 - PCV) [code = Pneumococcal Vaccine: 0-64 Years (2 of 2 - PCV)] [facility] Scheduled Test 2013-12-15 00:00:00 Pneumococcal Vaccine: 0-64 Years (2 of 2 - PCV) [code = Pneumococcal Vaccine: 0-64 Years (2 of 2 - PCV)] [facility] Future Scheduled Test 2013-12-15 00:00:00 Pneumococcal Vaccine: 0-64 Years (2 of 2 - PCV) [code = Pneumococcal Vaccine: 0-64 Years (2 of 2 - PCV)] [facility] Future Scheduled Test 2013-12-15 00:00:00 Pneumococcal Vaccine: 0-64 Years (2 of 2 - PCV) [code = Pneumococcal Vaccine: 0-64 Years (2 of 2 - PCV)] [facility] Scheduled Test 2013-12-15 00:00:00 Pneumococcal Vaccine: 0-64 Years (2 of 2 - PCV) [code = Pneumococcal Vaccine: 0-64 Years (2 of 2 - PCV)] [facility] Scheduled Test 2013-12-15 00:00:00 Pneumococcal Vaccine: 0-64 Years (2 of 2 - PCV) [code = Pneumococcal Vaccine: 0-64 Years (2 of 2 - PCV)] [facility] Scheduled Test 2013-12-15 00:00:00 Pneumococcal Vaccine: 0-64 Years (2 - PCV) [code = Pneumococcal Vaccine: 0-64 Years (2 - PCV)] [facility] Scheduled Test 2013-12-15 00:00:00 Pneumococcal Vaccine: 0-64 Years (2 - PCV) [code = Pneumococcal Vaccine: 0-64 Years (2 - PCV)] [facility] Scheduled Test 2013-12-15 00:00:00 Pneumococcal Vaccine: 0-64 Years (2 - PCV) [code = Pneumococcal Vaccine: 0-64 Years (2 - PCV)] [facility] Future Scheduled Test 1993-01-14 00:00:00 Screening for malignant neoplasm of cervix (procedure) [code = 733470327] [facility] Future Scheduled Test 1993-01-14 00:00:00 Screening for malignant neoplasm of cervix (procedure) [code = 758576842] [facility] Future Scheduled Test 1993-01-14 00:00:00 Screening for malignant neoplasm of cervix (procedure) [code = 763570398] [facility] Scheduled Test 1993-01-14 00:00:00 Screening for malignant neoplasm of cervix (procedure) [code = 888809206] [facility] Scheduled Test 1993-01-14 00:00:00 Screening for malignant neoplasm of cervix (procedure) [code = 023775437] [facility] Future Scheduled Test 1993-01-14 00:00:00 Screening for malignant neoplasm of cervix (procedure) [code = 629285929] [facility] Scheduled Test 1993-01-14 00:00:00 Screening for malignant neoplasm of cervix (procedure) [code = 518619010] [facility] Scheduled Test 1993-01-14 00:00:00 Screening for malignant neoplasm of cervix (procedure) [code = 216448841] [facility] Scheduled Test 1993-01-14 00:00:00 Screening for malignant neoplasm of cervix (procedure) [code = 025625986] [facility] Scheduled Test 1993-01-14 00:00:00 Screening for malignant neoplasm of cervix (procedure) [code = 822333426] [facility] Scheduled Test 1993-01-14 00:00:00 Screening for malignant neoplasm of cervix (procedure) [code = 493930732] [facility] Scheduled Test 1993-01-14 00:00:00 Screening for malignant neoplasm of cervix (procedure) [code = 914403901] [facility] Scheduled Test 1993-01-14 00:00:00 Screening for malignant neoplasm of cervix (procedure) [code = 024108471] [facility] Scheduled Test 1993-01-14 00:00:00 Screening for malignant neoplasm of cervix (procedure) [code = 233276999] [facility] Scheduled Test 1993-01-14 00:00:00 Screening for malignant neoplasm of cervix (procedure) [code = 127712557] [facility] Scheduled Test 1993-01-14 00:00:00 Screening for malignant neoplasm of cervix (procedure) [code = 126200854] [facility] Scheduled Test 1993-01-14 00:00:00 Screening for malignant neoplasm of cervix (procedure) [code = 416404375] [facility] Scheduled Test 1993-01-14 00:00:00 Screening for malignant neoplasm of cervix (procedure) [code = 768534513] [facility] Scheduled Test 1993-01-14 00:00:00 Screening for malignant neoplasm of cervix (procedure) [code = 662795452] [facility] Scheduled Test 1993-01-14 00:00:00 Screening for malignant neoplasm of cervix (procedure) [code = 252278464] [facility] Scheduled Test 1993-01-14 00:00:00 Screening for malignant neoplasm of cervix (procedure) [code = 343689705] [facility] Scheduled Test 1993-01-14 00:00:00 Screening for malignant neoplasm of cervix (procedure) [code = 349890809] [facility] Scheduled Test 1993-01-14 00:00:00 Screening for malignant neoplasm of cervix (procedure) [code = 254208837] [facility] Scheduled Test 1993-01-14 00:00:00 Screening for malignant neoplasm of cervix (procedure) [code = 228741607] [facility] Scheduled Test 1993-01-14 00:00:00 Screening for malignant neoplasm of cervix (procedure) [code = 242500653] [facility] Scheduled Test 1993-01-14 00:00:00 Screening for malignant neoplasm of cervix (procedure) [code = 797337975] [facility] Scheduled Test 1993-01-14 00:00:00 Screening for malignant neoplasm of cervix (procedure) [code = 483485078] [facility] Scheduled Test 1993-01-14 00:00:00 Screening for malignant neoplasm of cervix (procedure) [code = 130528838] [facility] Scheduled Test 1993-01-14 00:00:00 Screening for malignant neoplasm of cervix (procedure) [code = 198098817] [facility] Scheduled Test 1993-01-14 00:00:00 Screening for malignant neoplasm of cervix (procedure) [code = 303103282] [facility] Scheduled Test 1993-01-14 00:00:00 Screening for malignant neoplasm of cervix (procedure) [code = 271806719] [facility] Scheduled Test 1993-01-14 00:00:00 Screening for malignant neoplasm of cervix (procedure) [code = 714242647] [facility] Scheduled Test 1993-01-14 00:00:00 Screening for malignant neoplasm of cervix (procedure) [code = 963716873] [facility] Scheduled Test 1993-01-14 00:00:00 Screening for malignant neoplasm of cervix (procedure) [code = 446689029] [facility] Scheduled Test 1993-01-14 00:00:00 Screening for malignant neoplasm of cervix (procedure) [code = 393219285] [facility] Scheduled Test 1993-01-14 00:00:00 Screening for malignant neoplasm of cervix (procedure) [code = 958079604] [facility] Scheduled Test 1993-01-14 00:00:00 Screening for malignant neoplasm of cervix (procedure) [code = 519477831] [facility] Scheduled Test 1993-01-14 00:00:00 Screening for malignant neoplasm of cervix (procedure) [code = 235945954] [facility] Scheduled Test 1993-01-14 00:00:00 Screening for malignant neoplasm of cervix (procedure) [code = 570308332] [facility] Scheduled Test 1993-01-14 00:00:00 Screening for malignant neoplasm of cervix (procedure) [code = 722987359] [facility] Scheduled Test 1993-01-14 00:00:00 Screening for malignant neoplasm of cervix (procedure) [code = 938059477] [facility] Scheduled Test 1993-01-14 00:00:00 Screening for malignant neoplasm of cervix (procedure) [code = 830461823] [facility] Scheduled Test 1993-01-14 00:00:00 Screening for malignant neoplasm of cervix (procedure) [code = 799492627] [facility] Scheduled Test 1993-01-14 00:00:00 Screening for malignant neoplasm of cervix (procedure) [code = 080730146] [facility] Scheduled Test 1993-01-14 00:00:00 Screening for malignant neoplasm of cervix (procedure) [code = 752401608] [facility] Scheduled Test 1993-01-14 00:00:00 Screening for malignant neoplasm of cervix (procedure) [code = 312074554] [facility] Scheduled Test 1993-01-14 00:00:00 Screening for malignant neoplasm of cervix (procedure) [code = 395322021] [facility] Scheduled Test 1993-01-14 00:00:00 Screening for malignant neoplasm of cervix (procedure) [code = 438516267] [facility] Scheduled Test 1993-01-14 00:00:00 Screening for malignant neoplasm of cervix (procedure) [code = 784696779] [facility] Scheduled Test 1993-01-14 00:00:00 Screening for malignant neoplasm of cervix (procedure) [code = 933991848] [facility] Scheduled Test 1993-01-14 00:00:00 Screening for malignant neoplasm of cervix (procedure) [code = 790778430] [facility] Scheduled Test 1993-01-14 00:00:00 Screening for malignant neoplasm of cervix (procedure) [code = 762158607] [facility] Scheduled Test 1993-01-14 00:00:00 Screening for malignant neoplasm of cervix (procedure) [code = 288844061] [facility] Scheduled Test 1993-01-14 00:00:00 Screening for malignant neoplasm of cervix (procedure) [code = 498023087] [facility] Scheduled Test 1993-01-14 00:00:00 Screening for malignant neoplasm of cervix (procedure) [code = 304752036] [facility] Scheduled Test 1993-01-14 00:00:00 Screening for malignant neoplasm of cervix (procedure) [code = 373381682] [facility] Scheduled Test 1993-01-14 00:00:00 Screening for malignant neoplasm of cervix (procedure) [code = 584130922] [facility] Scheduled Test 1993-01-14 00:00:00 Screening for malignant neoplasm of cervix (procedure) [code = 829613204] [facility] Scheduled Test 1993-01-14 00:00:00 Screening for malignant neoplasm of cervix (procedure) [code = 360714622] [facility] Scheduled Test 1993-01-14 00:00:00 Screening for malignant neoplasm of cervix (procedure) [code = 632950308] [facility] Scheduled Test 1993-01-14 00:00:00 Screening for malignant neoplasm of cervix (procedure) [code = 021472341] [facility] Scheduled Test 1993-01-14 00:00:00 Screening for malignant neoplasm of cervix (procedure) [code = 677210180] [facility] Future Scheduled Test 1993-01-14 00:00:00 Screening for malignant neoplasm of cervix (procedure) [code = 365625176] [facility] Future Scheduled Test 1993-01-14 00:00:00 Screening for malignant neoplasm of cervix (procedure) [code = 711857109] [facility] Future Scheduled Test 1991-01-14 00:00:00 DTAP/TDAP/TD VACCINES (1 - Tdap) [code = DTAP/TDAP/TD VACCINES (1 - Tdap)] [facility] Future Scheduled Test 1991-01-14 00:00:00 DTAP/TDAP/TD VACCINES (1 - Tdap) [code = DTAP/TDAP/TD VACCINES (1 - Tdap)] [facility] Future Scheduled Test 1991-01-14 00:00:00 DTAP/TDAP/TD VACCINES (1 - Tdap) [code = DTAP/TDAP/TD VACCINES (1 - Tdap)] [facility] Future Scheduled Test 1991-01-14 00:00:00 DTAP/TDAP/TD VACCINES (1 - Tdap) [code = DTAP/TDAP/TD VACCINES (1 - Tdap)] [facility] Future Scheduled Test 1991-01-14 00:00:00 DTAP/TDAP/TD VACCINES (1 - Tdap) [code = DTAP/TDAP/TD VACCINES (1 - Tdap)] [facility] Future Scheduled Test 1991-01-14 00:00:00 DTAP/TDAP/TD VACCINES (1 - Tdap) [code = DTAP/TDAP/TD VACCINES (1 - Tdap)] [facility] Future Scheduled Test 1991-01-14 00:00:00 DTAP/TDAP/TD VACCINES (1 - Tdap) [code = DTAP/TDAP/TD VACCINES (1 - Tdap)] [facility] Future Scheduled Test 1991-01-14 00:00:00 DTAP/TDAP/TD VACCINES (1 - Tdap) [code = DTAP/TDAP/TD VACCINES (1 - Tdap)] [facility] Future Scheduled Test 1991-01-14 00:00:00 DTAP/TDAP/TD VACCINES (1 - Tdap) [code = DTAP/TDAP/TD VACCINES (1 - Tdap)] [facility] Future Scheduled Test 1991-01-14 00:00:00 DTAP/TDAP/TD VACCINES (1 - Tdap) [code = DTAP/TDAP/TD VACCINES (1 - Tdap)] [facility] Future Scheduled Test 1991-01-14 00:00:00 DTAP/TDAP/TD VACCINES (1 - Tdap) [code = DTAP/TDAP/TD VACCINES (1 - Tdap)] [facility] Future Scheduled Test 1991-01-14 00:00:00 DTAP/TDAP/TD VACCINES (1 - Tdap) [code = DTAP/TDAP/TD VACCINES (1 - Tdap)] [facility] Future Scheduled Test 1991-01-14 00:00:00 DTAP/TDAP/TD VACCINES (1 - Tdap) [code = DTAP/TDAP/TD VACCINES (1 - Tdap)] [facility] Future Scheduled Test 1991-01-14 00:00:00 DTAP/TDAP/TD VACCINES (1 - Tdap) [code = DTAP/TDAP/TD VACCINES (1 - Tdap)] [facility] Future Scheduled Test 1991-01-14 00:00:00 DTAP/TDAP/TD VACCINES (1 - Tdap) [code = DTAP/TDAP/TD VACCINES (1 - Tdap)] [facility] Future Scheduled Test 1991-01-14 00:00:00 DTAP/TDAP/TD VACCINES (1 - Tdap) [code = DTAP/TDAP/TD VACCINES (1 - Tdap)] [facility] Future Scheduled Test 1991-01-14 00:00:00 DTAP/TDAP/TD VACCINES (1 - Tdap) [code = DTAP/TDAP/TD VACCINES (1 - Tdap)] [facility] Future Scheduled Test 1991-01-14 00:00:00 DTAP/TDAP/TD VACCINES (1 - Tdap) [code = DTAP/TDAP/TD VACCINES (1 - Tdap)] [facility] Future Scheduled Test 1991-01-14 00:00:00 DTAP/TDAP/TD VACCINES (1 - Tdap) [code = DTAP/TDAP/TD VACCINES (1 - Tdap)] [facility] Future Scheduled Test 1991-01-14 00:00:00 DTAP/TDAP/TD VACCINES (1 - Tdap) [code = DTAP/TDAP/TD VACCINES (1 - Tdap)] [facility] Future Scheduled Test 1991-01-14 00:00:00 DTAP/TDAP/TD VACCINES (1 - Tdap) [code = DTAP/TDAP/TD VACCINES (1 - Tdap)] [facility] Future Scheduled Test 1991-01-14 00:00:00 DTAP/TDAP/TD VACCINES (1 - Tdap) [code = DTAP/TDAP/TD VACCINES (1 - Tdap)] [facility] Future Scheduled Test 1991-01-14 00:00:00 DTAP/TDAP/TD VACCINES (1 - Tdap) [code = DTAP/TDAP/TD VACCINES (1 - Tdap)] [facility] Future Scheduled Test 1991-01-14 00:00:00 DTAP/TDAP/TD VACCINES (1 - Tdap) [code = DTAP/TDAP/TD VACCINES (1 - Tdap)] [facility] Future Scheduled Test 1991-01-14 00:00:00 DTAP/TDAP/TD VACCINES (1 - Tdap) [code = DTAP/TDAP/TD VACCINES (1 - Tdap)] [facility] Future Scheduled Test 1991-01-14 00:00:00 DTAP/TDAP/TD VACCINES (1 - Tdap) [code = DTAP/TDAP/TD VACCINES (1 - Tdap)] [facility] Future Scheduled Test 1991-01-14 00:00:00 DTAP/TDAP/TD VACCINES (1 - Tdap) [code = DTAP/TDAP/TD VACCINES (1 - Tdap)] [facility] Future Scheduled Test 1991-01-14 00:00:00 DTAP/TDAP/TD VACCINES (1 - Tdap) [code = DTAP/TDAP/TD VACCINES (1 - Tdap)] [facility] Future Scheduled Test 1991-01-14 00:00:00 DTAP/TDAP/TD VACCINES (1 - Tdap) [code = DTAP/TDAP/TD VACCINES (1 - Tdap)] [facility] Future Scheduled Test 1991-01-14 00:00:00 DTAP/TDAP/TD VACCINES (1 - Tdap) [code = DTAP/TDAP/TD VACCINES (1 - Tdap)] [facility] Future Scheduled Test 1991-01-14 00:00:00 DTAP/TDAP/TD VACCINES (1 - Tdap) [code = DTAP/TDAP/TD VACCINES (1 - Tdap)] [facility] Future Scheduled Test 1991-01-14 00:00:00 DTAP/TDAP/TD VACCINES (1 - Tdap) [code = DTAP/TDAP/TD VACCINES (1 - Tdap)] [facility] Future Scheduled Test 1991-01-14 00:00:00 DTAP/TDAP/TD VACCINES (1 - Tdap) [code = DTAP/TDAP/TD VACCINES (1 - Tdap)] [facility] Future Scheduled Test 1991-01-14 00:00:00 DTAP/TDAP/TD VACCINES (1 - Tdap) [code = DTAP/TDAP/TD VACCINES (1 - Tdap)] [facility] Future Scheduled Test 1991-01-14 00:00:00 DTAP/TDAP/TD VACCINES (1 - Tdap) [code = DTAP/TDAP/TD VACCINES (1 - Tdap)] [facility] Future Scheduled Test 1991-01-14 00:00:00 DTAP/TDAP/TD VACCINES (1 - Tdap) [code = DTAP/TDAP/TD VACCINES (1 - Tdap)] [facility] Future Scheduled Test 1991-01-14 00:00:00 DTAP/TDAP/TD VACCINES (1 - Tdap) [code = DTAP/TDAP/TD VACCINES (1 - Tdap)] [facility] Future Scheduled Test 1991-01-14 00:00:00 DTAP/TDAP/TD VACCINES (1 - Tdap) [code = DTAP/TDAP/TD VACCINES (1 - Tdap)] [facility] Future Scheduled Test 1991-01-14 00:00:00 DTAP/TDAP/TD VACCINES (1 - Tdap) [code = DTAP/TDAP/TD VACCINES (1 - Tdap)] [facility] Future Scheduled Test 1991-01-14 00:00:00 DTAP/TDAP/TD VACCINES (1 - Tdap) [code = DTAP/TDAP/TD VACCINES (1 - Tdap)] [facility] Future Scheduled Test 1991-01-14 00:00:00 DTAP/TDAP/TD VACCINES (1 - Tdap) [code = DTAP/TDAP/TD VACCINES (1 - Tdap)] [facility] Future Scheduled Test 1991-01-14 00:00:00 DTAP/TDAP/TD VACCINES (1 - Tdap) [code = DTAP/TDAP/TD VACCINES (1 - Tdap)] [facility] Future Scheduled Test 1991-01-14 00:00:00 DTAP/TDAP/TD VACCINES (1 - Tdap) [code = DTAP/TDAP/TD VACCINES (1 - Tdap)] [facility] Future Scheduled Test 1991-01-14 00:00:00 DTAP/TDAP/TD VACCINES (1 - Tdap) [code = DTAP/TDAP/TD VACCINES (1 - Tdap)] [facility] Future Scheduled Test 1991-01-14 00:00:00 DTAP/TDAP/TD VACCINES (1 - Tdap) [code = DTAP/TDAP/TD VACCINES (1 - Tdap)] [facility] Future Scheduled Test 1991-01-14 00:00:00 DTAP/TDAP/TD VACCINES (1 - Tdap) [code = DTAP/TDAP/TD VACCINES (1 - Tdap)] [facility] Future Scheduled Test 1991-01-14 00:00:00 DTAP/TDAP/TD VACCINES (1 - Tdap) [code = DTAP/TDAP/TD VACCINES (1 - Tdap)] [facility] Future Scheduled Test 1991-01-14 00:00:00 DTAP/TDAP/TD VACCINES (1 - Tdap) [code = DTAP/TDAP/TD VACCINES (1 - Tdap)] [facility] Future Scheduled Test 1991-01-14 00:00:00 DTAP/TDAP/TD VACCINES (1 - Tdap) [code = DTAP/TDAP/TD VACCINES (1 - Tdap)] [facility] Future Scheduled Test 1991-01-14 00:00:00 DTAP/TDAP/TD VACCINES (1 - Tdap) [code = DTAP/TDAP/TD VACCINES (1 - Tdap)] [facility] Future Scheduled Test 1991-01-14 00:00:00 DTAP/TDAP/TD VACCINES (1 - Tdap) [code = DTAP/TDAP/TD VACCINES (1 - Tdap)] [facility] Future Scheduled Test 1991-01-14 00:00:00 DTAP/TDAP/TD VACCINES (1 - Tdap) [code = DTAP/TDAP/TD VACCINES (1 - Tdap)] [facility] Future Scheduled Test 1991-01-14 00:00:00 DTAP/TDAP/TD VACCINES (1 - Tdap) [code = DTAP/TDAP/TD VACCINES (1 - Tdap)] [facility] Future Scheduled Test 1991-01-14 00:00:00 DTAP/TDAP/TD VACCINES (1 - Tdap) [code = DTAP/TDAP/TD VACCINES (1 - Tdap)] [facility] Future Scheduled Test 1991-01-14 00:00:00 DTAP/TDAP/TD VACCINES (1 - Tdap) [code = DTAP/TDAP/TD VACCINES (1 - Tdap)] [facility] Future Scheduled Test 1991-01-14 00:00:00 DTAP/TDAP/TD VACCINES (1 - Tdap) [code = DTAP/TDAP/TD VACCINES (1 - Tdap)] [facility] Future Scheduled Test 1991-01-14 00:00:00 DTAP/TDAP/TD VACCINES (1 - Tdap) [code = DTAP/TDAP/TD VACCINES (1 - Tdap)] [facility] Future Scheduled Test 1991-01-14 00:00:00 DTAP/TDAP/TD VACCINES (1 - Tdap) [code = DTAP/TDAP/TD VACCINES (1 - Tdap)] [facility] Future Scheduled Test 1991-01-14 00:00:00 DTAP/TDAP/TD VACCINES (1 - Tdap) [code = DTAP/TDAP/TD VACCINES (1 - Tdap)] [facility] Future Scheduled Test 1991-01-14 00:00:00 DTAP/TDAP/TD VACCINES (1 - Tdap) [code = DTAP/TDAP/TD VACCINES (1 - Tdap)] [facility] Future Scheduled Test 1991-01-14 00:00:00 DTAP/TDAP/TD VACCINES (1 - Tdap) [code = DTAP/TDAP/TD VACCINES (1 - Tdap)] [facility] Future Scheduled Test 1991-01-14 00:00:00 DTAP/TDAP/TD VACCINES (1 - Tdap) [code = DTAP/TDAP/TD VACCINES (1 - Tdap)] [facility] Future Scheduled Test 1991-01-14 00:00:00 DTAP/TDAP/TD VACCINES (1 - Tdap) [code = DTAP/TDAP/TD VACCINES (1 - Tdap)] [facility] Future Scheduled Test 1991-01-14 00:00:00 DTAP/TDAP/TD VACCINES (1 - Tdap) [code = DTAP/TDAP/TD VACCINES (1 - Tdap)] [facility] Future Scheduled Test 1990-01-14 00:00:00 HEPATITIS C SCREENING [code = HEPATITIS C SCREENING] [facility] Future Scheduled Test 1990-01-14 00:00:00 HEPATITIS C SCREENING [code = HEPATITIS C SCREENING] [facility] Future Scheduled Test 1990-01-14 00:00:00 HEPATITIS C SCREENING [code = HEPATITIS C SCREENING] [facility] Future Scheduled Test 1990-01-14 00:00:00 HEPATITIS C SCREENING [code = HEPATITIS C SCREENING] [facility] Future Scheduled Test 1990-01-14 00:00:00 HEPATITIS C SCREENING [code = HEPATITIS C SCREENING] [facility] Future Scheduled Test 1990-01-14 00:00:00 HEPATITIS C SCREENING [code = HEPATITIS C SCREENING] [facility] Future Scheduled Test 1990-01-14 00:00:00 HEPATITIS C SCREENING [code = HEPATITIS C SCREENING] [facility] Future Scheduled Test 1990-01-14 00:00:00 HEPATITIS C SCREENING [code = HEPATITIS C SCREENING] [facility] Future Scheduled Test 1990-01-14 00:00:00 HEPATITIS C SCREENING [code = HEPATITIS C SCREENING] [facility] Future Scheduled Test 1990-01-14 00:00:00 HEPATITIS C SCREENING [code = HEPATITIS C SCREENING] [facility] Future Scheduled Test 1990-01-14 00:00:00 HEPATITIS C SCREENING [code = HEPATITIS C SCREENING] [facility] Future Scheduled Test 1990-01-14 00:00:00 HEPATITIS C SCREENING [code = HEPATITIS C SCREENING] [facility] Future Scheduled Test 1990-01-14 00:00:00 HEPATITIS C SCREENING [code = HEPATITIS C SCREENING] [facility] Future Scheduled Test 1990-01-14 00:00:00 HEPATITIS C SCREENING [code = HEPATITIS C SCREENING] [facility] Future Scheduled Test 1990-01-14 00:00:00 HEPATITIS C SCREENING [code = HEPATITIS C SCREENING] [facility] Future Scheduled Test 1990-01-14 00:00:00 HEPATITIS C SCREENING [code = HEPATITIS C SCREENING] [facility] Future Scheduled Test 1990-01-14 00:00:00 HEPATITIS C SCREENING [code = HEPATITIS C SCREENING] [facility] Future Scheduled Test 1990-01-14 00:00:00 HEPATITIS C SCREENING [code = HEPATITIS C SCREENING] [facility] Future Scheduled Test 1990-01-14 00:00:00 HEPATITIS C SCREENING [code = HEPATITIS C SCREENING] [facility] Future Scheduled Test 1990-01-14 00:00:00 HEPATITIS C SCREENING [code = HEPATITIS C SCREENING] [facility] Future Scheduled Test 1990-01-14 00:00:00 HEPATITIS C SCREENING [code = HEPATITIS C SCREENING] [facility] Future Scheduled Test 1990-01-14 00:00:00 HEPATITIS C SCREENING [code = HEPATITIS C SCREENING] [facility] Future Scheduled Test 1990-01-14 00:00:00 HEPATITIS C SCREENING [code = HEPATITIS C SCREENING] [facility] Future Scheduled Test 1990-01-14 00:00:00 HEPATITIS C SCREENING [code = HEPATITIS C SCREENING] [facility] Future Scheduled Test 1990-01-14 00:00:00 HEPATITIS C SCREENING [code = HEPATITIS C SCREENING] [facility] Future Scheduled Test 1990-01-14 00:00:00 HEPATITIS C SCREENING [code = HEPATITIS C SCREENING] [facility] Future Scheduled Test 1990-01-14 00:00:00 HEPATITIS C SCREENING [code = HEPATITIS C SCREENING] [facility] Future Scheduled Test 1990-01-14 00:00:00 HEPATITIS C SCREENING [code = HEPATITIS C SCREENING] [facility] Future Scheduled Test 1990-01-14 00:00:00 HEPATITIS C SCREENING [code = HEPATITIS C SCREENING] [facility] Future Scheduled Test 1990-01-14 00:00:00 HEPATITIS C SCREENING [code = HEPATITIS C SCREENING] [facility] Future Scheduled Test 1990-01-14 00:00:00 HEPATITIS C SCREENING [code = HEPATITIS C SCREENING] [facility] Future Scheduled Test 1990-01-14 00:00:00 HEPATITIS C SCREENING [code = HEPATITIS C SCREENING] [facility] Future Scheduled Test 1990-01-14 00:00:00 HEPATITIS C SCREENING [code = HEPATITIS C SCREENING] [facility] Future Scheduled Test 1990-01-14 00:00:00 HEPATITIS C SCREENING [code = HEPATITIS C SCREENING] [facility] Future Scheduled Test 1990-01-14 00:00:00 HEPATITIS C SCREENING [code = HEPATITIS C SCREENING] [facility] Future Scheduled Test 1990-01-14 00:00:00 HEPATITIS C SCREENING [code = HEPATITIS C SCREENING] [facility] Future Scheduled Test 1990-01-14 00:00:00 HEPATITIS C SCREENING [code = HEPATITIS C SCREENING] [facility] Future Scheduled Test 1990-01-14 00:00:00 HEPATITIS C SCREENING [code = HEPATITIS C SCREENING] [facility] Future Scheduled Test 1990-01-14 00:00:00 HEPATITIS C SCREENING [code = HEPATITIS C SCREENING] [facility] Future Scheduled Test 1990-01-14 00:00:00 HEPATITIS C SCREENING [code = HEPATITIS C SCREENING] [facility] Future Scheduled Test 1990-01-14 00:00:00 HEPATITIS C SCREENING [code = HEPATITIS C SCREENING] [facility] Future Scheduled Test 1990-01-14 00:00:00 HEPATITIS C SCREENING [code = HEPATITIS C SCREENING] [facility] Future Scheduled Test 1990-01-14 00:00:00 HEPATITIS C SCREENING [code = HEPATITIS C SCREENING] [facility] Future Scheduled Test 1990-01-14 00:00:00 HEPATITIS C SCREENING [code = HEPATITIS C SCREENING] [facility] Future Scheduled Test 1990-01-14 00:00:00 HEPATITIS C SCREENING [code = HEPATITIS C SCREENING] [facility] Future Scheduled Test 1990-01-14 00:00:00 HEPATITIS C SCREENING [code = HEPATITIS C SCREENING] [facility] Future Scheduled Test 1990-01-14 00:00:00 HEPATITIS C SCREENING [code = HEPATITIS C SCREENING] [facility] Future Scheduled Test 1990-01-14 00:00:00 HEPATITIS C SCREENING [code = HEPATITIS C SCREENING] [facility] Future Scheduled Test 1990-01-14 00:00:00 HEPATITIS C SCREENING [code = HEPATITIS C SCREENING] [facility] Future Scheduled Test 1990-01-14 00:00:00 HEPATITIS C SCREENING [code = HEPATITIS C SCREENING] [facility] Future Scheduled Test 1990-01-14 00:00:00 HEPATITIS C SCREENING [code = HEPATITIS C SCREENING] [facility] Future Scheduled Test 1990-01-14 00:00:00 HEPATITIS C SCREENING [code = HEPATITIS C SCREENING] [facility] Future Scheduled Test 1990-01-14 00:00:00 HEPATITIS C SCREENING [code = HEPATITIS C SCREENING] [facility] Future Scheduled Test 1990-01-14 00:00:00 HEPATITIS C SCREENING [code = HEPATITIS C SCREENING] [facility] Future Scheduled Test 1990-01-14 00:00:00 HEPATITIS C SCREENING [code = HEPATITIS C SCREENING] [facility] Future Scheduled Test 1990-01-14 00:00:00 HEPATITIS C SCREENING [code = HEPATITIS C SCREENING] [facility] Future Scheduled Test 1990-01-14 00:00:00 HEPATITIS C SCREENING [code = HEPATITIS C SCREENING] [facility] Future Scheduled Test 1990-01-14 00:00:00 HEPATITIS C SCREENING [code = HEPATITIS C SCREENING] [facility] Future Scheduled Test 1990-01-14 00:00:00 HEPATITIS C SCREENING [code = HEPATITIS C SCREENING] [facility] Future Scheduled Test 1990-01-14 00:00:00 HEPATITIS C SCREENING [code = HEPATITIS C SCREENING] [facility] Future Scheduled Test 1990-01-14 00:00:00 HEPATITIS C SCREENING [code = HEPATITIS C SCREENING] [facility] Future Scheduled Test 1990-01-14 00:00:00 HEPATITIS C SCREENING [code = HEPATITIS C SCREENING] [facility] Future Scheduled Test 1990-01-14 00:00:00 HEPATITIS C SCREENING [code = HEPATITIS C SCREENING] [facility] Future Scheduled Test 1990-01-14 00:00:00 HEPATITIS C SCREENING [code = HEPATITIS C SCREENING] [facility] Future Scheduled Test 1987-01-14 00:00:00 Human immunodeficiency virus screening (procedure) [code = 645404544] [facility] Future Scheduled Test 1987-01-14 00:00:00 Human immunodeficiency virus screening (procedure) [code = [id number]] [facility] Future Scheduled Test 1984 00:00:00 Tobacco Cessation Counseling and Screening (12+) [code = Tobacco Cessation Counseling and Screening (12+)] [facility] Scheduled Test 1984 00:00:00 Tobacco Cessation Counseling and Screening (12+) [code = Tobacco Cessation Counseling and Screening (12+)] [facility] Scheduled Test 1984 00:00:00 Tobacco Cessation Counseling and Screening (12+) [code = Tobacco Cessation Counseling and Screening (12+)] [facility] Future Scheduled Test 1984 00:00:00 Tobacco Cessation Counseling and Screening (12+) [code = Tobacco Cessation Counseling and Screening (12+)] [facility] Future Scheduled Test 1984 00:00:00 Tobacco Cessation Counseling and Screening (12+) [code = Tobacco Cessation Counseling and Screening (12+)] [facility] Future Scheduled Test 1984 00:00:00 Tobacco Cessation Counseling and Screening (12+) [code = Tobacco Cessation Counseling and Screening (12+)] [facility] Future Scheduled Test 1984 00:00:00 Tobacco Cessation Counseling and Screening (12+) [code = Tobacco Cessation Counseling and Screening (12+)] [facility] Future Scheduled Test 1984 00:00:00 Tobacco Cessation Counseling and Screening (12+) [code = Tobacco Cessation Counseling and Screening (12+)] [facility] Future Scheduled Test 1984 00:00:00 Tobacco Cessation Counseling and Screening (12+) [code = Tobacco Cessation Counseling and Screening (12+)] [facility] Future Scheduled Test 1984 00:00:00 Tobacco Cessation Counseling and Screening (12+) [code = Tobacco Cessation Counseling and Screening (12+)] [facility] Future Scheduled Test 1984 00:00:00 Tobacco Cessation Counseling and Screening (12+) [code = Tobacco Cessation Counseling and Screening (12+)] [facility] Future Scheduled Test 1984 00:00:00 Tobacco Cessation Counseling and Screening (12+) [code = Tobacco Cessation Counseling and Screening (12+)] [facility] Future Scheduled Test 1984 00:00:00 Tobacco Cessation Counseling and Screening (12+) [code = Tobacco Cessation Counseling and Screening (12+)] [facility] Scheduled Test 1984 00:00:00 Tobacco Cessation Counseling and Screening (12+) [code = Tobacco Cessation Counseling and Screening (12+)] [facility] Scheduled Test 1984 00:00:00 Tobacco Cessation Counseling and Screening (12+) [code = Tobacco Cessation Counseling and Screening (12+)] [facility] Future Scheduled Test 1984 00:00:00 Tobacco Cessation Counseling and Screening (12+) [code = Tobacco Cessation Counseling and Screening (12+)] [facility] Scheduled Test 1984 00:00:00 Tobacco Cessation Counseling and Screening (12+) [code = Tobacco Cessation Counseling and Screening (12+)] [facility] Future Scheduled Test 1984 00:00:00 Tobacco Cessation Counseling and Screening (12+) [code = Tobacco Cessation Counseling and Screening (12+)] [facility] Future Scheduled Test 1984 00:00:00 Tobacco Cessation Counseling and Screening (12+) [code = Tobacco Cessation Counseling and Screening (12+)] [facility] Future Scheduled Test 1984 00:00:00 Tobacco Cessation Counseling and Screening (12+) [code = Tobacco Cessation Counseling and Screening (12+)] [facility] Future Scheduled Test 1984 00:00:00 Tobacco Cessation Counseling and Screening (12+) [code = Tobacco Cessation Counseling and Screening (12+)] [facility] Future Scheduled Test 1984 00:00:00 Tobacco Cessation Counseling and Screening (12+) [code = Tobacco Cessation Counseling and Screening (12+)] [facility] Future Scheduled Test 1984 00:00:00 Tobacco Cessation Counseling and Screening (12+) [code = Tobacco Cessation Counseling and Screening (12+)] [facility] Future Scheduled Test 1972 00:00:00 Screening for malignant neoplasm of breast (procedure) [code = [id number]] [facility] Future Scheduled Test 1972 00:00:00 CT Colonography (combo) [code = CT Colonography (combo)] [facility] Future Scheduled Test 1972 00:00:00 Screening for malignant neoplasm of colon (procedure) [code = 093523651] [facility] Future Scheduled Test 1972 00:00:00 Screening for malignant neoplasm of colon (procedure) [code = 696296748] [facility] Future Scheduled Test 1972 00:00:00 Screening for malignant neoplasm of colon (procedure) [code = 195365561] [facility] Future Scheduled Test 1972 00:00:00 Screening for malignant neoplasm of colon (procedure) [code = 313419050] [facility] Future Scheduled Test 1972 00:00:00 Sigmoidoscopy [code = Sigmoidoscopy] [facility] Future Scheduled Test 1972 00:00:00 Screening for malignant neoplasm of breast (procedure) [code = 136936587] [facility] Future Scheduled Test 1972 00:00:00 CT Colonography (combo) [code = CT Colonography (combo)] [facility] Future Scheduled Test 1972 00:00:00 Screening for malignant neoplasm of colon (procedure) [code = 842415595] [facility] Future Scheduled Test 1972 00:00:00 Screening for malignant neoplasm of colon (procedure) [code = 433792410] [facility] Future Scheduled Test 1972 00:00:00 Screening for malignant neoplasm of colon (procedure) [code = 078064834] [facility] Future Scheduled Test 1972 00:00:00 Screening for malignant neoplasm of colon (procedure) [code = 432136512] [facility] Future Scheduled Test 1972 00:00:00 Sigmoidoscopy [code = Sigmoidoscopy] [facility] Future Scheduled Test 1972 00:00:00 Screening for malignant neoplasm of breast (procedure) [code = 467407699] [facility] Future Scheduled Test 1972 00:00:00 CT Colonography (combo) [code = CT Colonography (combo)] [facility] Future Scheduled Test 1972 00:00:00 Screening for malignant neoplasm of colon (procedure) [code = 460220334] [facility] Future Scheduled Test 1972 00:00:00 Screening for malignant neoplasm of colon (procedure) [code = 951199600] [facility] Future Scheduled Test 1972 00:00:00 Screening for malignant neoplasm of colon (procedure) [code = 660345795] [facility] Future Scheduled Test 1972 00:00:00 Screening for malignant neoplasm of colon (procedure) [code = 394322463] [facility] Future Scheduled Test 1972 00:00:00 Sigmoidoscopy [code = Sigmoidoscopy] [facility] Future Scheduled Test 1972 00:00:00 Screening for malignant neoplasm of breast (procedure) [code = 918739823] [facility] Future Scheduled Test 1972 00:00:00 CT Colonography (combo) [code = CT Colonography (combo)] [facility] Future Scheduled Test 1972 00:00:00 Screening for malignant neoplasm of colon (procedure) [code = [id number]] [facility] Future Scheduled Test 1972 00:00:00 Screening for malignant neoplasm of colon (procedure) [code = 337237360] [facility] Future Scheduled Test 1972 00:00:00 Screening for malignant neoplasm of colon (procedure) [code = 062702673] [facility] Future Scheduled Test 1972 00:00:00 Screening for malignant neoplasm of colon (procedure) [code = 942345465] [facility] Future Scheduled Test 1972 00:00:00 Sigmoidoscopy [code = Sigmoidoscopy] [facility] Future Scheduled Test 1972 00:00:00 Screening for malignant neoplasm of breast (procedure) [code = 252647475] [facility] Future Scheduled Test 1972 00:00:00 CT Colonography (combo) [code = CT Colonography (combo)] [facility] Future Scheduled Test 1972 00:00:00 Screening for malignant neoplasm of colon (procedure) [code = 509003008] [facility] Future Scheduled Test 1972 00:00:00 Screening for malignant neoplasm of colon (procedure) [code = 021588175] [facility] Future Scheduled Test 1972 00:00:00 Screening for malignant neoplasm of colon (procedure) [code = 757124819] [facility] Future Scheduled Test 1972 00:00:00 Screening for malignant neoplasm of colon (procedure) [code = 297501522] [facility] Future Scheduled Test 1972 00:00:00 Sigmoidoscopy [code = Sigmoidoscopy] [facility] Future Scheduled Test 1972 00:00:00 Screening for malignant neoplasm of breast (procedure) [code = 974495170] [facility] Future Scheduled Test 1972 00:00:00 CT Colonography (combo) [code = CT Colonography (combo)] [facility] Future Scheduled Test 1972 00:00:00 Screening for malignant neoplasm of colon (procedure) [code = 165424823] [facility] Future Scheduled Test 1972 00:00:00 Screening for malignant neoplasm of colon (procedure) [code = 557680460] [facility] Future Scheduled Test 1972 00:00:00 Screening for malignant neoplasm of colon (procedure) [code = 959679894] [facility] Future Scheduled Test 1972 00:00:00 Screening for malignant neoplasm of colon (procedure) [code = 377174982] [facility] Future Scheduled Test 1972 00:00:00 Sigmoidoscopy [code = Sigmoidoscopy] [facility] Future Scheduled Test 1972 00:00:00 Screening for malignant neoplasm of breast (procedure) [code = 941543051] [facility] Future Scheduled Test 1972 00:00:00 CT Colonography (combo) [code = CT Colonography (combo)] [facility] Future Scheduled Test 1972 00:00:00 Screening for malignant neoplasm of colon (procedure) [code = 924022638] [facility] Future Scheduled Test 1972 00:00:00 Screening for malignant neoplasm of colon (procedure) [code = 832046913] [facility] Future Scheduled Test 1972 00:00:00 Screening for malignant neoplasm of colon (procedure) [code = 037839194] [facility] Future Scheduled Test 1972 00:00:00 Screening for malignant neoplasm of colon (procedure) [code = 671487872] [facility] Future Scheduled Test 1972 00:00:00 Sigmoidoscopy [code = Sigmoidoscopy] [facility] Future Scheduled Test 1972 00:00:00 Screening for malignant neoplasm of breast (procedure) [code = 431632945] [facility] Future Scheduled Test 1972 00:00:00 CT Colonography (combo) [code = CT Colonography (combo)] [facility] Future Scheduled Test 1972 00:00:00 Screening for malignant neoplasm of colon (procedure) [code = 062503534] [facility] Future Scheduled Test 1972 00:00:00 Screening for malignant neoplasm of colon (procedure) [code = 496498857] [facility] Future Scheduled Test 1972 00:00:00 Screening for malignant neoplasm of colon (procedure) [code = 638853640] [facility] Future Scheduled Test 1972 00:00:00 Screening for malignant neoplasm of colon (procedure) [code = 174919027] [facility] Future Scheduled Test 1972 00:00:00 Sigmoidoscopy [code = Sigmoidoscopy] [facility] Future Scheduled Test 1972 00:00:00 Screening for malignant neoplasm of breast (procedure) [code = 772456038] [facility] Future Scheduled Test 1972 00:00:00 CT Colonography (combo) [code = CT Colonography (combo)] [facility] Future Scheduled Test 1972 00:00:00 Screening for malignant neoplasm of colon (procedure) [code = 105128193] [facility] Future Scheduled Test 1972 00:00:00 Screening for malignant neoplasm of colon (procedure) [code = 897785391] [facility] Future Scheduled Test 1972 00:00:00 Screening for malignant neoplasm of colon (procedure) [code = 129692345] [facility] Future Scheduled Test 1972 00:00:00 Screening for malignant neoplasm of colon (procedure) [code = 490693520] [facility] Future Scheduled Test 1972 00:00:00 Sigmoidoscopy [code = Sigmoidoscopy] [facility] Future Scheduled Test 1972 00:00:00 Screening for malignant neoplasm of breast (procedure) [code = 259392716] [facility] Future Scheduled Test 1972 00:00:00 CT Colonography (combo) [code = CT Colonography (combo)] [facility] Future Scheduled Test 1972 00:00:00 Screening for malignant neoplasm of colon (procedure) [code = 190407232] [facility] Future Scheduled Test 1972 00:00:00 Screening for malignant neoplasm of colon (procedure) [code = 308539729] [facility] Future Scheduled Test 1972 00:00:00 Screening for malignant neoplasm of colon (procedure) [code = 431866315] [facility] Future Scheduled Test 1972 00:00:00 Screening for malignant neoplasm of colon (procedure) [code = 294280160] [facility] Future Scheduled Test 1972 00:00:00 Sigmoidoscopy [code = Sigmoidoscopy] [facility] Future Scheduled Test 1972 00:00:00 Screening for malignant neoplasm of breast (procedure) [code = 344308034] [facility] Future Scheduled Test 1972 00:00:00 CT Colonography (combo) [code = CT Colonography (combo)] [facility] Future Scheduled Test 1972 00:00:00 Screening for malignant neoplasm of colon (procedure) [code = 017210315] [facility] Future Scheduled Test 1972 00:00:00 Screening for malignant neoplasm of colon (procedure) [code = 041593788] [facility] Future Scheduled Test 1972 00:00:00 Screening for malignant neoplasm of colon (procedure) [code = 854451209] [facility] Future Scheduled Test 1972 00:00:00 Screening for malignant neoplasm of colon (procedure) [code = 151807303] [facility] Future Scheduled Test 1972 00:00:00 Sigmoidoscopy [code = Sigmoidoscopy] [facility] Future Scheduled Test 1972 00:00:00 Screening for malignant neoplasm of breast (procedure) [code = 342078301] [facility] Future Scheduled Test 1972 00:00:00 CT Colonography (combo) [code = CT Colonography (combo)] [facility] Future Scheduled Test 1972 00:00:00 Screening for malignant neoplasm of colon (procedure) [code = 824510554] [facility] Future Scheduled Test 1972 00:00:00 Screening for malignant neoplasm of colon (procedure) [code = 486388998] [facility] Future Scheduled Test 1972 00:00:00 Screening for malignant neoplasm of colon (procedure) [code = 477880909] [facility] Future Scheduled Test 1972 00:00:00 Screening for malignant neoplasm of colon (procedure) [code = 213791894] [facility] Future Scheduled Test 1972 00:00:00 Sigmoidoscopy [code = Sigmoidoscopy] [facility] Future Scheduled Test 1972 00:00:00 Screening for malignant neoplasm of breast (procedure) [code = 439334052] [facility] Future Scheduled Test 1972 00:00:00 CT Colonography (combo) [code = CT Colonography (combo)] [facility] Future Scheduled Test 1972 00:00:00 Screening for malignant neoplasm of colon (procedure) [code = 808626276] [facility] Future Scheduled Test 1972 00:00:00 Screening for malignant neoplasm of colon (procedure) [code = 761684112] [facility] Future Scheduled Test 1972 00:00:00 Screening for malignant neoplasm of colon (procedure) [code = 761135832] [facility] Future Scheduled Test 1972 00:00:00 Screening for malignant neoplasm of colon (procedure) [code = 905086008] [facility] Future Scheduled Test 1972 00:00:00 Sigmoidoscopy [code = Sigmoidoscopy] [facility] Future Scheduled Test 1972 00:00:00 Screening for malignant neoplasm of breast (procedure) [code = 255560127] [facility] Future Scheduled Test 1972 00:00:00 CT Colonography (combo) [code = CT Colonography (combo)] [facility] Future Scheduled Test 1972 00:00:00 Screening for malignant neoplasm of colon (procedure) [code = 385277025] [facility] Future Scheduled Test 1972 00:00:00 Screening for malignant neoplasm of colon (procedure) [code = 470612331] [facility] Future Scheduled Test 1972 00:00:00 Screening for malignant neoplasm of colon (procedure) [code = 608029024] [facility] Future Scheduled Test 1972 00:00:00 Screening for malignant neoplasm of colon (procedure) [code = 249813159] [facility] Future Scheduled Test 1972 00:00:00 Sigmoidoscopy [code = Sigmoidoscopy] [facility] Future Scheduled Test 1972 00:00:00 Screening for malignant neoplasm of breast (procedure) [code = 855347558] [facility] Future Scheduled Test 1972 00:00:00 CT Colonography (combo) [code = CT Colonography (combo)] [facility] Future Scheduled Test 1972 00:00:00 Screening for malignant neoplasm of colon (procedure) [code = 107847564] [facility] Future Scheduled Test 1972 00:00:00 Screening for malignant neoplasm of colon (procedure) [code = 384002654] [facility] Future Scheduled Test 1972 00:00:00 Screening for malignant neoplasm of colon (procedure) [code = 676038037] [facility] Future Scheduled Test 1972 00:00:00 Screening for malignant neoplasm of colon (procedure) [code = 912541066] [facility] Future Scheduled Test 1972 00:00:00 Sigmoidoscopy [code = Sigmoidoscopy] [facility] Future Scheduled Test 1972 00:00:00 Screening for malignant neoplasm of breast (procedure) [code = 981380254] [facility] Future Scheduled Test 1972 00:00:00 CT Colonography (combo) [code = CT Colonography (combo)] [facility] Future Scheduled Test 1972 00:00:00 Screening for malignant neoplasm of colon (procedure) [code = 859018445] [facility] Future Scheduled Test 1972 00:00:00 Screening for malignant neoplasm of colon (procedure) [code = 304833577] [facility] Future Scheduled Test 1972 00:00:00 Screening for malignant neoplasm of colon (procedure) [code = 793591994] [facility] Future Scheduled Test 1972 00:00:00 Screening for malignant neoplasm of colon (procedure) [code = 720212212] [facility] Future Scheduled Test 1972 00:00:00 Sigmoidoscopy [code = Sigmoidoscopy] [facility] Future Scheduled Test 1972 00:00:00 Screening for malignant neoplasm of breast (procedure) [code = 732704133] [facility] Future Scheduled Test 1972 00:00:00 CT Colonography (combo) [code = CT Colonography (combo)] [facility] Future Scheduled Test 1972 00:00:00 Screening for malignant neoplasm of colon (procedure) [code = 884017782] [facility] Future Scheduled Test 1972 00:00:00 Screening for malignant neoplasm of colon (procedure) [code = 926534847] [facility] Future Scheduled Test 1972 00:00:00 Screening for malignant neoplasm of colon (procedure) [code = 513563021] [facility] Future Scheduled Test 1972 00:00:00 Screening for malignant neoplasm of colon (procedure) [code = 526055188] [facility] Future Scheduled Test 1972 00:00:00 Sigmoidoscopy [code = Sigmoidoscopy] [facility] Future Scheduled Test 1972 00:00:00 Screening for malignant neoplasm of breast (procedure) [code = 650613870] [facility] Future Scheduled Test 1972 00:00:00 CT Colonography (combo) [code = CT Colonography (combo)] [facility] Future Scheduled Test 1972 00:00:00 Screening for malignant neoplasm of breast (procedure) [code = 717823961] [facility] Future Scheduled Test 1972 00:00:00 CT Colonography (combo) [code = CT Colonography (combo)] [facility] Future Scheduled Test 1972 00:00:00 Screening for malignant neoplasm of colon (procedure) [code = 402715833] [facility] Future Scheduled Test 1972 00:00:00 Screening for malignant neoplasm of colon (procedure) [code = 284549284] [facility] Future Scheduled Test 1972 00:00:00 Screening for malignant neoplasm of colon (procedure) [code = 210052578] [facility] Future Scheduled Test 1972 00:00:00 Screening for malignant neoplasm of colon (procedure) [code = 192228966] [facility] Future Scheduled Test 1972 00:00:00 Sigmoidoscopy [code = Sigmoidoscopy] [facility] Future Scheduled Test 1972 00:00:00 Screening for malignant neoplasm of colon (procedure) [code = 850621024] [facility] Future Scheduled Test 1972 00:00:00 Screening for malignant neoplasm of colon (procedure) [code = 592726433] [facility] Future Scheduled Test 1972 00:00:00 Screening for malignant neoplasm of colon (procedure) [code = 398038278] [facility] Future Scheduled Test 1972 00:00:00 Screening for malignant neoplasm of colon (procedure) [code = 325340793] [facility] Future Scheduled Test 1972 00:00:00 Sigmoidoscopy [code = Sigmoidoscopy] [facility] Future Scheduled Test 1972 00:00:00 Screening for malignant neoplasm of breast (procedure) [code = 766692687] [facility] Future Scheduled Test 1972 00:00:00 CT Colonography (combo) [code = CT Colonography (combo)] [facility] Future Scheduled Test 1972 00:00:00 Screening for malignant neoplasm of colon (procedure) [code = 519367393] [facility] Future Scheduled Test 1972 00:00:00 Screening for malignant neoplasm of colon (procedure) [code = 030002247] [facility] Future Scheduled Test 1972 00:00:00 Screening for malignant neoplasm of colon (procedure) [code = 203519765] [facility] Future Scheduled Test 1972 00:00:00 Screening for malignant neoplasm of colon (procedure) [code = 665084061] [facility] Future Scheduled Test 1972 00:00:00 Sigmoidoscopy [code = Sigmoidoscopy] [facility] Future Scheduled Test 1972 00:00:00 Screening for malignant neoplasm of breast (procedure) [code = 309125995] [facility] Future Scheduled Test 1972 00:00:00 CT Colonography (combo) [code = CT Colonography (combo)] [facility] Future Scheduled Test 1972 00:00:00 Screening for malignant neoplasm of colon (procedure) [code = 164922206] [facility] Future Scheduled Test 1972 00:00:00 Screening for malignant neoplasm of colon (procedure) [code = 801742227] [facility] Future Scheduled Test 1972 00:00:00 Screening for malignant neoplasm of colon (procedure) [code = 974631324] [facility] Future Scheduled Test 1972 00:00:00 Screening for malignant neoplasm of colon (procedure) [code = 588580854] [facility] Future Scheduled Test 1972 00:00:00 Sigmoidoscopy [code = Sigmoidoscopy] [facility] Future Scheduled Test 1972 00:00:00 Screening for malignant neoplasm of breast (procedure) [code = 702340961] [facility] Future Scheduled Test 1972 00:00:00 CT Colonography (combo) [code = CT Colonography (combo)] [facility] Future Scheduled Test 1972 00:00:00 Screening for malignant neoplasm of colon (procedure) [code = 638843892] [facility] Future Scheduled Test 1972 00:00:00 Screening for malignant neoplasm of colon (procedure) [code = 369126767] [facility] Future Scheduled Test 1972 00:00:00 Screening for malignant neoplasm of colon (procedure) [code = 676897418] [facility] Future Scheduled Test 1972 00:00:00 Screening for malignant neoplasm of colon (procedure) [code = 015475054] [facility] Future Scheduled Test 1972 00:00:00 Sigmoidoscopy [code = Sigmoidoscopy] [facility] Future Scheduled Test 1972 00:00:00 Screening for malignant neoplasm of breast (procedure) [code = 681431174] [facility] Future Scheduled Test 1972 00:00:00 CT Colonography (combo) [code = CT Colonography (combo)] [facility] Future Scheduled Test 1972 00:00:00 Screening for malignant neoplasm of colon (procedure) [code = 605105499] [facility] Future Scheduled Test 1972 00:00:00 Screening for malignant neoplasm of colon (procedure) [code = 112788656] [facility] Future Scheduled Test 1972 00:00:00 Screening for malignant neoplasm of colon (procedure) [code = 447789507] [facility] Future Scheduled Test 1972 00:00:00 Screening for malignant neoplasm of colon (procedure) [code = 150702496] [facility] Future Scheduled Test 1972 00:00:00 Sigmoidoscopy [code = Sigmoidoscopy] [facility] Future Scheduled Test 1972 00:00:00 Screening for malignant neoplasm of breast (procedure) [code = 400522721] [facility] Future Scheduled Test 1972 00:00:00 CT Colonography (combo) [code = CT Colonography (combo)] [facility] Future Scheduled Test 1972 00:00:00 Screening for malignant neoplasm of colon (procedure) [code = 838928078] [facility] Future Scheduled Test 1972 00:00:00 Screening for malignant neoplasm of colon (procedure) [code = 428532266] [facility] Future Scheduled Test 1972 00:00:00 Screening for malignant neoplasm of colon (procedure) [code = 655280154] [facility] Future Scheduled Test 1972 00:00:00 Screening for malignant neoplasm of colon (procedure) [code = 692974960] [facility] Future Scheduled Test 1972 00:00:00 Sigmoidoscopy [code = Sigmoidoscopy] [facility] Future Scheduled Test 1972 00:00:00 Screening for malignant neoplasm of breast (procedure) [code = 528989868] [facility] Future Scheduled Test 1972 00:00:00 CT Colonography (combo) [code = CT Colonography (combo)] [facility] Future Scheduled Test 1972 00:00:00 Screening for malignant neoplasm of colon (procedure) [code = 012353505] [facility] Future Scheduled Test 1972 00:00:00 Screening for malignant neoplasm of colon (procedure) [code = 044525683] [facility] Future Scheduled Test 1972 00:00:00 Screening for malignant neoplasm of colon (procedure) [code = 384121438] [facility] Future Scheduled Test 1972 00:00:00 Screening for malignant neoplasm of colon (procedure) [code = 694020612] [facility] Future Scheduled Test 1972 00:00:00 Sigmoidoscopy [code = Sigmoidoscopy] [facility] Future Scheduled Test 1972 00:00:00 Screening for malignant neoplasm of breast (procedure) [code = 074204576] [facility] Future Scheduled Test 1972 00:00:00 CT Colonography (combo) [code = CT Colonography (combo)] [facility] Future Scheduled Test 1972 00:00:00 Screening for malignant neoplasm of colon (procedure) [code = 342939925] [facility] Future Scheduled Test 1972 00:00:00 Screening for malignant neoplasm of colon (procedure) [code = 489658745] [facility] Future Scheduled Test 1972 00:00:00 Screening for malignant neoplasm of colon (procedure) [code = 145974947] [facility] Future Scheduled Test 1972 00:00:00 Screening for malignant neoplasm of colon (procedure) [code = 579768817] [facility] Future Scheduled Test 1972 00:00:00 Screening for malignant neoplasm of breast (procedure) [code = 905957881] [facility] Future Scheduled Test 1972 00:00:00 CT Colonography (combo) [code = CT Colonography (combo)] [facility] Future Scheduled Test 1972 00:00:00 Sigmoidoscopy [code = Sigmoidoscopy] [facility] Future Scheduled Test 1972 00:00:00 Screening for malignant neoplasm of colon (procedure) [code = 933864694] [facility] Future Scheduled Test 1972 00:00:00 Screening for malignant neoplasm of colon (procedure) [code = 079228195] [facility] Future Scheduled Test 1972 00:00:00 Screening for malignant neoplasm of colon (procedure) [code = 732768862] [facility] Future Scheduled Test 1972 00:00:00 Screening for malignant neoplasm of colon (procedure) [code = 760642439] [facility] Future Scheduled Test 1972 00:00:00 Sigmoidoscopy [code = Sigmoidoscopy] [facility] Future Scheduled Test 1972 00:00:00 Screening for malignant neoplasm of breast (procedure) [code = 143202291] [facility] Future Scheduled Test 1972 00:00:00 CT Colonography (combo) [code = CT Colonography (combo)] [facility] Future Scheduled Test 1972 00:00:00 Screening for malignant neoplasm of colon (procedure) [code = 453508229] [facility] Future Scheduled Test 1972 00:00:00 Screening for malignant neoplasm of colon (procedure) [code = 834531242] [facility] Future Scheduled Test 1972 00:00:00 Screening for malignant neoplasm of colon (procedure) [code = 991694406] [facility] Future Scheduled Test 1972 00:00:00 Screening for malignant neoplasm of colon (procedure) [code = 422444044] [facility] Future Scheduled Test 1972 00:00:00 Sigmoidoscopy [code = Sigmoidoscopy] [facility] Future Scheduled Test 1972 00:00:00 Screening for malignant neoplasm of breast (procedure) [code = 477866471] [facility] Future Scheduled Test 1972 00:00:00 CT Colonography (combo) [code = CT Colonography (combo)] [facility] Future Scheduled Test 1972 00:00:00 Screening for malignant neoplasm of colon (procedure) [code = 984307409] [facility] Future Scheduled Test 1972 00:00:00 Screening for malignant neoplasm of colon (procedure) [code = 655390031] [facility] Future Scheduled Test 1972 00:00:00 Screening for malignant neoplasm of colon (procedure) [code = 638695437] [facility] Future Scheduled Test 1972 00:00:00 Screening for malignant neoplasm of colon (procedure) [code = 348459960] [facility] Future Scheduled Test 1972 00:00:00 Sigmoidoscopy [code = Sigmoidoscopy] [facility] Future Scheduled Test 1972 00:00:00 Screening for malignant neoplasm of breast (procedure) [code = 615722809] [facility] Future Scheduled Test 1972 00:00:00 CT Colonography (combo) [code = CT Colonography (combo)] [facility] Future Scheduled Test 1972 00:00:00 Screening for malignant neoplasm of colon (procedure) [code = 804621907] [facility] Future Scheduled Test 1972 00:00:00 Screening for malignant neoplasm of colon (procedure) [code = 269434925] [facility] Future Scheduled Test 1972 00:00:00 Screening for malignant neoplasm of colon (procedure) [code = 924906444] [facility] Future Scheduled Test 1972 00:00:00 Screening for malignant neoplasm of colon (procedure) [code = 098450197] [facility] Future Scheduled Test 1972 00:00:00 Sigmoidoscopy [code = Sigmoidoscopy] [facility] Future Scheduled Test 1972 00:00:00 Screening for malignant neoplasm of breast (procedure) [code = 195033493] [facility] Future Scheduled Test 1972 00:00:00 CT Colonography (combo) [code = CT Colonography (combo)] [facility] Future Scheduled Test 1972 00:00:00 Screening for malignant neoplasm of colon (procedure) [code = 174786573] [facility] Future Scheduled Test 1972 00:00:00 Screening for malignant neoplasm of colon (procedure) [code = 004594391] [facility] Future Scheduled Test 1972 00:00:00 Screening for malignant neoplasm of colon (procedure) [code = [id number]] [facility] Future Scheduled Test 1972 00:00:00 Screening for malignant neoplasm of colon (procedure) [code = 960891838] [facility] Future Scheduled Test 1972 00:00:00 Sigmoidoscopy [code = Sigmoidoscopy] [facility] Future Scheduled Test 1972 00:00:00 Screening for malignant neoplasm of breast (procedure) [code = 625794492] [facility] Future Scheduled Test 1972 00:00:00 CT Colonography (combo) [code = CT Colonography (combo)] [facility] Future Scheduled Test 1972 00:00:00 Screening for malignant neoplasm of colon (procedure) [code = 329423723] [facility] Future Scheduled Test 1972 00:00:00 Screening for malignant neoplasm of colon (procedure) [code = 650239468] [facility] Future Scheduled Test 1972 00:00:00 Screening for malignant neoplasm of colon (procedure) [code = 458215150] [facility] Future Scheduled Test 1972 00:00:00 Screening for malignant neoplasm of colon (procedure) [code = 016959515] [facility] Future Scheduled Test 1972 00:00:00 Sigmoidoscopy [code = Sigmoidoscopy] [facility] Future Scheduled Test 1972 00:00:00 Screening for malignant neoplasm of breast (procedure) [code = 644481400] [facility] Future Scheduled Test 1972 00:00:00 CT Colonography (combo) [code = CT Colonography (combo)] [facility] Future Scheduled Test 1972 00:00:00 Screening for malignant neoplasm of colon (procedure) [code = 747736539] [facility] Future Scheduled Test 1972 00:00:00 Screening for malignant neoplasm of colon (procedure) [code = 387715289] [facility] Future Scheduled Test 1972 00:00:00 Screening for malignant neoplasm of breast (procedure) [code = 009884283] [facility] Future Scheduled Test 1972 00:00:00 Screening for malignant neoplasm of colon (procedure) [code = 191269063] [facility] Future Scheduled Test 1972 00:00:00 CT Colonography (combo) [code = CT Colonography (combo)] [facility] Future Scheduled Test 1972 00:00:00 Screening for malignant neoplasm of colon (procedure) [code = 491690932] [facility] Future Scheduled Test 1972 00:00:00 Screening for malignant neoplasm of colon (procedure) [code = 775151814] [facility] Future Scheduled Test 1972 00:00:00 Screening for malignant neoplasm of colon (procedure) [code = 777809737] [facility] Future Scheduled Test 1972 00:00:00 Screening for malignant neoplasm of colon (procedure) [code = 430800646] [facility] Future Scheduled Test 1972 00:00:00 Sigmoidoscopy [code = Sigmoidoscopy] [facility] Future Scheduled Test 1972 00:00:00 Screening for malignant neoplasm of colon (procedure) [code = 851684719] [facility] Future Scheduled Test 1972 00:00:00 Sigmoidoscopy [code = Sigmoidoscopy] [facility] Future Scheduled Test 1972 00:00:00 Screening for malignant neoplasm of breast (procedure) [code = 485817117] [facility] Future Scheduled Test 1972 00:00:00 CT Colonography (combo) [code = CT Colonography (combo)] [facility] Future Scheduled Test 1972 00:00:00 Screening for malignant neoplasm of colon (procedure) [code = 601215052] [facility] Future Scheduled Test 1972 00:00:00 Screening for malignant neoplasm of colon (procedure) [code = 923901949] [facility] Future Scheduled Test 1972 00:00:00 Screening for malignant neoplasm of colon (procedure) [code = 651922836] [facility] Future Scheduled Test 1972 00:00:00 Screening for malignant neoplasm of colon (procedure) [code = 410301802] [facility] Future Scheduled Test 1972 00:00:00 Sigmoidoscopy [code = Sigmoidoscopy] [facility] Future Scheduled Test 1972 00:00:00 Screening for malignant neoplasm of breast (procedure) [code = 910735841] [facility] Future Scheduled Test 1972 00:00:00 CT Colonography (combo) [code = CT Colonography (combo)] [facility] Future Scheduled Test 1972 00:00:00 Screening for malignant neoplasm of colon (procedure) [code = 196974277] [facility] Future Scheduled Test 1972 00:00:00 Screening for malignant neoplasm of colon (procedure) [code = 807088737] [facility] Future Scheduled Test 1972 00:00:00 Screening for malignant neoplasm of colon (procedure) [code = 188629221] [facility] Future Scheduled Test 1972 00:00:00 Screening for malignant neoplasm of colon (procedure) [code = 597947219] [facility] Future Scheduled Test 1972 00:00:00 Sigmoidoscopy [code = Sigmoidoscopy] [facility] Future Scheduled Test 1972 00:00:00 Screening for malignant neoplasm of breast (procedure) [code = 938494755] [facility] Future Scheduled Test 1972 00:00:00 CT Colonography (combo) [code = CT Colonography (combo)] [facility] Future Scheduled Test 1972 00:00:00 Screening for malignant neoplasm of colon (procedure) [code = 907977276] [facility] Future Scheduled Test 1972 00:00:00 Screening for malignant neoplasm of colon (procedure) [code = 332058517] [facility] Future Scheduled Test 1972 00:00:00 Screening for malignant neoplasm of colon (procedure) [code = 942254626] [facility] Future Scheduled Test 1972 00:00:00 Screening for malignant neoplasm of colon (procedure) [code = 357972251] [facility] Future Scheduled Test 1972 00:00:00 Sigmoidoscopy [code = Sigmoidoscopy] [facility] Future Scheduled Test 1972 00:00:00 Screening for malignant neoplasm of breast (procedure) [code = 434989563] [facility] Future Scheduled Test 1972 00:00:00 CT Colonography (combo) [code = CT Colonography (combo)] [facility] Future Scheduled Test 1972 00:00:00 Screening for malignant neoplasm of colon (procedure) [code = 172280261] [facility] Future Scheduled Test 1972 00:00:00 Screening for malignant neoplasm of colon (procedure) [code = 362534386] [facility] Future Scheduled Test 1972 00:00:00 Screening for malignant neoplasm of colon (procedure) [code = 545653769] [facility] Future Scheduled Test 1972 00:00:00 Screening for malignant neoplasm of colon (procedure) [code = 688459325] [facility] Future Scheduled Test 1972 00:00:00 Sigmoidoscopy [code = Sigmoidoscopy] [facility] Future Scheduled Test 1972 00:00:00 Screening for malignant neoplasm of breast (procedure) [code = 650880405] [facility] Future Scheduled Test 1972 00:00:00 CT Colonography (combo) [code = CT Colonography (combo)] [facility] Future Scheduled Test 1972 00:00:00 Screening for malignant neoplasm of colon (procedure) [code = 924377435] [facility] Future Scheduled Test 1972 00:00:00 Screening for malignant neoplasm of colon (procedure) [code = 131665505] [facility] Future Scheduled Test 1972 00:00:00 Screening for malignant neoplasm of colon (procedure) [code = 665154994] [facility] Future Scheduled Test 1972 00:00:00 Screening for malignant neoplasm of colon (procedure) [code = 562722252] [facility] Future Scheduled Test 1972 00:00:00 Sigmoidoscopy [code = Sigmoidoscopy] [facility] Future Scheduled Test 1972 00:00:00 Screening for malignant neoplasm of breast (procedure) [code = 477175045] [facility] Future Scheduled Test 1972 00:00:00 CT Colonography (combo) [code = CT Colonography (combo)] [facility] Future Scheduled Test 1972 00:00:00 Screening for malignant neoplasm of colon (procedure) [code = 387230278] [facility] Future Scheduled Test 1972 00:00:00 Screening for malignant neoplasm of colon (procedure) [code = 051805780] [facility] Future Scheduled Test 1972 00:00:00 Screening for malignant neoplasm of colon (procedure) [code = 664973447] [facility] Future Scheduled Test 1972 00:00:00 Screening for malignant neoplasm of colon (procedure) [code = 261352305] [facility] Future Scheduled Test 1972 00:00:00 Sigmoidoscopy [code = Sigmoidoscopy] [facility] Future Scheduled Test 1972 00:00:00 Screening for malignant neoplasm of breast (procedure) [code = 406830614] [facility] Future Scheduled Test 1972 00:00:00 CT Colonography (combo) [code = CT Colonography (combo)] [facility] Future Scheduled Test 1972 00:00:00 Screening for malignant neoplasm of colon (procedure) [code = 603045409] [facility] Future Scheduled Test 1972 00:00:00 Screening for malignant neoplasm of colon (procedure) [code = 449809418] [facility] Future Scheduled Test 1972 00:00:00 Screening for malignant neoplasm of colon (procedure) [code = 635780977] [facility] Future Scheduled Test 1972 00:00:00 Screening for malignant neoplasm of colon (procedure) [code = 441852679] [facility] Future Scheduled Test 1972 00:00:00 Sigmoidoscopy [code = Sigmoidoscopy] [facility] Future Scheduled Test 1972 00:00:00 Screening for malignant neoplasm of breast (procedure) [code = 093462364] [facility] Future Scheduled Test 1972 00:00:00 CT Colonography (combo) [code = CT Colonography (combo)] [facility] Future Scheduled Test 1972 00:00:00 Screening for malignant neoplasm of colon (procedure) [code = 875163309] [facility] Future Scheduled Test 1972 00:00:00 Screening for malignant neoplasm of colon (procedure) [code = 617266760] [facility] Future Scheduled Test 1972 00:00:00 Screening for malignant neoplasm of colon (procedure) [code = 959231791] [facility] Future Scheduled Test 1972 00:00:00 Screening for malignant neoplasm of colon (procedure) [code = 669551226] [facility] Future Scheduled Test 1972 00:00:00 Sigmoidoscopy [code = Sigmoidoscopy] [facility] Future Scheduled Test 1972 00:00:00 Screening for malignant neoplasm of breast (procedure) [code = 181392565] [facility] Future Scheduled Test 1972 00:00:00 CT Colonography (combo) [code = CT Colonography (combo)] [facility] Future Scheduled Test 1972 00:00:00 Screening for malignant neoplasm of colon (procedure) [code = 172037908] [facility] Future Scheduled Test 1972 00:00:00 Screening for malignant neoplasm of colon (procedure) [code = 137282105] [facility] Future Scheduled Test 1972 00:00:00 Screening for malignant neoplasm of colon (procedure) [code = 498874325] [facility] Future Scheduled Test 1972 00:00:00 Screening for malignant neoplasm of colon (procedure) [code = 819481833] [facility] Future Scheduled Test 1972 00:00:00 Sigmoidoscopy [code = Sigmoidoscopy] [facility] Future Scheduled Test 1972 00:00:00 Screening for malignant neoplasm of breast (procedure) [code = 318218804] [facility] Future Scheduled Test 1972 00:00:00 CT Colonography (combo) [code = CT Colonography (combo)] [facility] Future Scheduled Test 1972 00:00:00 Screening for malignant neoplasm of colon (procedure) [code = 416106248] [facility] Future Scheduled Test 1972 00:00:00 Screening for malignant neoplasm of colon (procedure) [code = 367314571] [facility] Future Scheduled Test 1972 00:00:00 Screening for malignant neoplasm of colon (procedure) [code = 123672768] [facility] Future Scheduled Test 1972 00:00:00 Screening for malignant neoplasm of colon (procedure) [code = 222080292] [facility] Future Scheduled Test 1972 00:00:00 Sigmoidoscopy [code = Sigmoidoscopy] [facility] Future Scheduled Test 1972 00:00:00 Screening for malignant neoplasm of breast (procedure) [code = 263997290] [facility] Future Scheduled Test 1972 00:00:00 CT Colonography (combo) [code = CT Colonography (combo)] [facility] Future Scheduled Test 1972 00:00:00 Screening for malignant neoplasm of colon (procedure) [code = 881254431] [facility] Future Scheduled Test 1972 00:00:00 Screening for malignant neoplasm of breast (procedure) [code = 146342583] [facility] Future Scheduled Test 1972 00:00:00 CT Colonography (combo) [code = CT Colonography (combo)] [facility] Future Scheduled Test 1972 00:00:00 Screening for malignant neoplasm of colon (procedure) [code = 583729678] [facility] Future Scheduled Test 1972 00:00:00 Screening for malignant neoplasm of colon (procedure) [code = 509222345] [facility] Future Scheduled Test 1972 00:00:00 Screening for malignant neoplasm of colon (procedure) [code = 257117825] [facility] Future Scheduled Test 1972 00:00:00 Screening for malignant neoplasm of colon (procedure) [code = 299081850] [facility] Future Scheduled Test 1972 00:00:00 Sigmoidoscopy [code = Sigmoidoscopy] [facility] Future Scheduled Test 1972 00:00:00 Screening for malignant neoplasm of colon (procedure) [code = 352608861] [facility] Future Scheduled Test 1972 00:00:00 Screening for malignant neoplasm of colon (procedure) [code = 204962252] [facility] Future Scheduled Test 1972 00:00:00 Screening for malignant neoplasm of colon (procedure) [code = 191178631] [facility] Future Scheduled Test 1972 00:00:00 Sigmoidoscopy [code = Sigmoidoscopy] [facility] Future Scheduled Test 1972 00:00:00 Screening for malignant neoplasm of breast (procedure) [code = 749553921] [facility] Future Scheduled Test 1972 00:00:00 CT Colonography (combo) [code = CT Colonography (combo)] [facility] Future Scheduled Test 1972 00:00:00 Screening for malignant neoplasm of colon (procedure) [code = 116983689] [facility] Future Scheduled Test 1972 00:00:00 Screening for malignant neoplasm of colon (procedure) [code = 340889061] [facility] Future Scheduled Test 1972 00:00:00 Screening for malignant neoplasm of colon (procedure) [code = 427401156] [facility] Future Scheduled Test 1972 00:00:00 Screening for malignant neoplasm of colon (procedure) [code = 212397846] [facility] Future Scheduled Test 1972 00:00:00 Sigmoidoscopy [code = Sigmoidoscopy] [facility] Future Scheduled Test 1972 00:00:00 Screening for malignant neoplasm of breast (procedure) [code = 262210719] [facility] Future Scheduled Test 1972 00:00:00 CT Colonography (combo) [code = CT Colonography (combo)] [facility] Future Scheduled Test 1972 00:00:00 Screening for malignant neoplasm of colon (procedure) [code = 878907625] [facility] Future Scheduled Test 1972 00:00:00 Screening for malignant neoplasm of colon (procedure) [code = 920912962] [facility] Future Scheduled Test 1972 00:00:00 Screening for malignant neoplasm of colon (procedure) [code = 901299138] [facility] Future Scheduled Test 1972 00:00:00 Screening for malignant neoplasm of colon (procedure) [code = 223946031] [facility] Future Scheduled Test 1972 00:00:00 Sigmoidoscopy [code = Sigmoidoscopy] [facility] Future Scheduled Test 1972 00:00:00 Screening for malignant neoplasm of breast (procedure) [code = 932399589] [facility] Future Scheduled Test 1972 00:00:00 CT Colonography (combo) [code = CT Colonography (combo)] [facility] Future Scheduled Test 1972 00:00:00 Screening for malignant neoplasm of colon (procedure) [code = 485071044] [facility] Future Scheduled Test 1972 00:00:00 Screening for malignant neoplasm of colon (procedure) [code = 283682994] [facility] Future Scheduled Test 1972 00:00:00 Screening for malignant neoplasm of colon (procedure) [code = 289231174] [facility] Future Scheduled Test 1972 00:00:00 Screening for malignant neoplasm of colon (procedure) [code = 790596362] [facility] Future Scheduled Test 1972 00:00:00 Sigmoidoscopy [code = Sigmoidoscopy] [facility] Future Scheduled Test 1972 00:00:00 Screening for malignant neoplasm of breast (procedure) [code = 097284559] [facility] Future Scheduled Test 1972 00:00:00 CT Colonography (combo) [code = CT Colonography (combo)] [facility] Future Scheduled Test 1972 00:00:00 Screening for malignant neoplasm of colon (procedure) [code = 375486582] [facility] Future Scheduled Test 1972 00:00:00 Screening for malignant neoplasm of colon (procedure) [code = 299264650] [facility] Future Scheduled Test 1972 00:00:00 Screening for malignant neoplasm of colon (procedure) [code = 078906429] [facility] Future Scheduled Test 1972 00:00:00 Screening for malignant neoplasm of colon (procedure) [code = 250234270] [facility] Future Scheduled Test 1972 00:00:00 Sigmoidoscopy [code = Sigmoidoscopy] [facility] Future Scheduled Test 1972 00:00:00 Screening for malignant neoplasm of breast (procedure) [code = 201659963] [facility] Future Scheduled Test 1972 00:00:00 CT Colonography (combo) [code = CT Colonography (combo)] [facility] Future Scheduled Test 1972 00:00:00 Screening for malignant neoplasm of colon (procedure) [code = 219356575] [facility] Future Scheduled Test 1972 00:00:00 Screening for malignant neoplasm of colon (procedure) [code = 254409720] [facility] Future Scheduled Test 1972 00:00:00 Screening for malignant neoplasm of colon (procedure) [code = 502388880] [facility] Future Scheduled Test 1972 00:00:00 Screening for malignant neoplasm of colon (procedure) [code = 683436810] [facility] Future Scheduled Test 1972 00:00:00 Screening for malignant neoplasm of breast (procedure) [code = 861044592] [facility] Future Scheduled Test 1972 00:00:00 Sigmoidoscopy [code = Sigmoidoscopy] [facility] Future Scheduled Test 1972 00:00:00 CT Colonography (combo) [code = CT Colonography (combo)] [facility] Future Scheduled Test 1972 00:00:00 Screening for malignant neoplasm of colon (procedure) [code = 482179172] [facility] Future Scheduled Test 1972 00:00:00 Screening for malignant neoplasm of breast (procedure) [code = 123865275] [facility] Future Scheduled Test 1972 00:00:00 CT Colonography (combo) [code = CT Colonography (combo)] [facility] Future Scheduled Test 1972 00:00:00 Screening for malignant neoplasm of colon (procedure) [code = 743479197] [facility] Future Scheduled Test 1972 00:00:00 Screening for malignant neoplasm of colon (procedure) [code = 622702225] [facility] Future Scheduled Test 1972 00:00:00 Screening for malignant neoplasm of colon (procedure) [code = 633338564] [facility] Future Scheduled Test 1972 00:00:00 Screening for malignant neoplasm of colon (procedure) [code = 761401171] [facility] Future Scheduled Test 1972 00:00:00 Screening for malignant neoplasm of colon (procedure) [code = 373287521] [facility] Future Scheduled Test 1972 00:00:00 Sigmoidoscopy [code = Sigmoidoscopy] [facility] Future Scheduled Test 1972 00:00:00 Screening for malignant neoplasm of colon (procedure) [code = 881540525] [facility] Future Scheduled Test 1972 00:00:00 Screening for malignant neoplasm of colon (procedure) [code = 991322997] [facility] Future Scheduled Test 1972 00:00:00 Screening for malignant neoplasm of breast (procedure) [code = 415206215] [facility] Future Scheduled Test 1972 00:00:00 CT Colonography (combo) [code = CT Colonography (combo)] [facility] Future Scheduled Test 1972 00:00:00 Screening for malignant neoplasm of colon (procedure) [code = 941557227] [facility] Future Scheduled Test 1972 00:00:00 Screening for malignant neoplasm of colon (procedure) [code = 046405740] [facility] Future Scheduled Test 1972 00:00:00 Sigmoidoscopy [code = Sigmoidoscopy] [facility] Future Scheduled Test 1972 00:00:00 Screening for malignant neoplasm of colon (procedure) [code = 357334999] [facility] Future Scheduled Test 1972 00:00:00 Screening for malignant neoplasm of colon (procedure) [code = 903895415] [facility] Future Scheduled Test 1972 00:00:00 Sigmoidoscopy [code = Sigmoidoscopy] [facility] Future Scheduled Test 1972 00:00:00 Screening for malignant neoplasm of breast (procedure) [code = 251659988] [facility] Future Scheduled Test 1972 00:00:00 CT Colonography (combo) [code = CT Colonography (combo)] [facility] Future Scheduled Test 1972 00:00:00 Screening for malignant neoplasm of colon (procedure) [code = 340197178] [facility] Future Scheduled Test 1972 00:00:00 Screening for malignant neoplasm of colon (procedure) [code = 052009541] [facility] Future Scheduled Test 1972 00:00:00 Screening for malignant neoplasm of colon (procedure) [code = 771928583] [facility] Future Scheduled Test 1972 00:00:00 Screening for malignant neoplasm of colon (procedure) [code = 880599988] [facility] Future Scheduled Test 1972 00:00:00 Sigmoidoscopy [code = Sigmoidoscopy] [facility] Future Scheduled Test 1972 00:00:00 Screening for malignant neoplasm of breast (procedure) [code = 403995788] [facility] Future Scheduled Test 1972 00:00:00 CT Colonography (combo) [code = CT Colonography (combo)] [facility] Future Scheduled Test 1972 00:00:00 Screening for malignant neoplasm of colon (procedure) [code = 913701786] [facility] Future Scheduled Test 1972 00:00:00 Screening for malignant neoplasm of colon (procedure) [code = 660663861] [facility] Future Scheduled Test 1972 00:00:00 Screening for malignant neoplasm of colon (procedure) [code = 876263809] [facility] Future Scheduled Test 1972 00:00:00 Screening for malignant neoplasm of colon (procedure) [code = 138442868] [facility] Future Scheduled Test 1972 00:00:00 Sigmoidoscopy [code = Sigmoidoscopy] [facility] Future Scheduled Test 1972 00:00:00 Screening for malignant neoplasm of breast (procedure) [code = 643943903] [facility] Future Scheduled Test 1972 00:00:00 CT Colonography (combo) [code = CT Colonography (combo)] [facility] Future Scheduled Test 1972 00:00:00 Screening for malignant neoplasm of colon (procedure) [code = 499574196] [facility] Future Scheduled Test 1972 00:00:00 Screening for malignant neoplasm of colon (procedure) [code = 973403327] [facility] Future Scheduled Test 1972 00:00:00 Screening for malignant neoplasm of colon (procedure) [code = 250919096] [facility] Future Scheduled Test 1972 00:00:00 Screening for malignant neoplasm of colon (procedure) [code = 203140406] [facility] Future Scheduled Test 1972 00:00:00 Sigmoidoscopy [code = Sigmoidoscopy] [facility] Future Scheduled Test 1972 00:00:00 Screening for malignant neoplasm of breast (procedure) [code = 348451335] [facility] Future Scheduled Test 1972 00:00:00 CT Colonography (combo) [code = CT Colonography (combo)] [facility] Future Scheduled Test 1972 00:00:00 Screening for malignant neoplasm of colon (procedure) [code = 698080768] [facility] Future Scheduled Test 1972 00:00:00 Screening for malignant neoplasm of colon (procedure) [code = 014048183] [facility] Future Scheduled Test 1972 00:00:00 Screening for malignant neoplasm of colon (procedure) [code = 757924271] [facility] Future Scheduled Test 1972 00:00:00 Screening for malignant neoplasm of colon (procedure) [code = 590108094] [facility] Scheduled Test 1972 00:00:00 Sigmoidoscopy [code = Sigmoidoscopy] [facility] Future Scheduled Test 1972 00:00:00 Screening for malignant neoplasm of breast (procedure) [code = 631413865] [facility] Future Scheduled Test 1972 00:00:00 CT Colonography (combo) [code = CT Colonography (combo)] [facility] Future Scheduled Test 1972 00:00:00 Screening for malignant neoplasm of colon (procedure) [code = 560334561] [facility] Future Scheduled Test 1972 00:00:00 Screening for malignant neoplasm of colon (procedure) [code = 821665632] [facility] Future Scheduled Test 1972 00:00:00 Screening for malignant neoplasm of colon (procedure) [code = 318917826] [facility] Future Scheduled Test 1972 00:00:00 Screening for malignant neoplasm of colon (procedure) [code = 385378294] [facility] Future Scheduled Test 1972 00:00:00 Sigmoidoscopy [code = Sigmoidoscopy] [facility] Future Scheduled Test 1972 00:00:00 Screening for malignant neoplasm of breast (procedure) [code = 302879376] [facility] Future Scheduled Test 1972 00:00:00 CT Colonography (combo) [code = CT Colonography (combo)] [facility] Future Scheduled Test 1972 00:00:00 Screening for malignant neoplasm of colon (procedure) [code = 325891042] [facility] Future Scheduled Test 1972 00:00:00 Screening for malignant neoplasm of colon (procedure) [code = 328167062] [facility] Future Scheduled Test 1972 00:00:00 Screening for malignant neoplasm of colon (procedure) [code = 276790237] [facility] Future Scheduled Test 1972 00:00:00 Screening for malignant neoplasm of colon (procedure) [code = 769916223] [facility] Future Scheduled Test 1972 00:00:00 Sigmoidoscopy [code = Sigmoidoscopy] [facility] Future Scheduled Test 1972 00:00:00 Screening for malignant neoplasm of breast (procedure) [code = 753010463] [facility] Future Scheduled Test 1972 00:00:00 CT Colonography (combo) [code = CT Colonography (combo)] [facility] Future Scheduled Test 1972 00:00:00 Screening for malignant neoplasm of colon (procedure) [code = 748549851] [facility] Future Scheduled Test 1972 00:00:00 Screening for malignant neoplasm of colon (procedure) [code = 321542634] [facility] Future Scheduled Test 1972 00:00:00 Screening for malignant neoplasm of colon (procedure) [code = 218726544] [facility] Future Scheduled Test 1972 00:00:00 Screening for malignant neoplasm of colon (procedure) [code = 677973238] [facility] Future Scheduled Test 1972 00:00:00 Sigmoidoscopy [code = Sigmoidoscopy] [facility] Future Scheduled Test 1972 00:00:00 Screening for malignant neoplasm of breast (procedure) [code = 928425994] [facility] Future Scheduled Test 1972 00:00:00 CT Colonography (combo) [code = CT Colonography (combo)] [facility] Future Scheduled Test 1972 00:00:00 Screening for malignant neoplasm of colon (procedure) [code = 278857547] [facility] Future Scheduled Test 1972 00:00:00 Screening for malignant neoplasm of colon (procedure) [code = 407970634] [facility] Future Scheduled Test 1972 00:00:00 Screening for malignant neoplasm of colon (procedure) [code = 132609463] [facility] Future Scheduled Test 1972 00:00:00 Screening for malignant neoplasm of colon (procedure) [code = 094344575] [facility] Future Scheduled Test 1972 00:00:00 Sigmoidoscopy [code = Sigmoidoscopy] [facility] Future Scheduled Test 1972 00:00:00 Screening for malignant neoplasm of breast (procedure) [code = 804834616] [facility] Future Scheduled Test 1972 00:00:00 CT Colonography (combo) [code = CT Colonography (combo)] [facility] Future Scheduled Test 1972 00:00:00 Screening for malignant neoplasm of colon (procedure) [code = 904816609] [facility] Future Scheduled Test 1972 00:00:00 Screening for malignant neoplasm of colon (procedure) [code = 975070498] [facility] Future Scheduled Test 1972 00:00:00 Screening for malignant neoplasm of colon (procedure) [code = 210534239] [facility] Future Scheduled Test 1972 00:00:00 Screening for malignant neoplasm of colon (procedure) [code = 169431019] [facility] Future Scheduled Test 1972 00:00:00 Sigmoidoscopy [code = Sigmoidoscopy] [facility] Future Scheduled Test 1972 00:00:00 Screening for malignant neoplasm of breast (procedure) [code = 103637953] [facility] Future Scheduled Test 1972 00:00:00 CT Colonography (combo) [code = CT Colonography (combo)] [facility] Future Scheduled Test 1972 00:00:00 Screening for malignant neoplasm of colon (procedure) [code = 505778469] [facility] Future Scheduled Test 1972 00:00:00 Screening for malignant neoplasm of colon (procedure) [code = 458504508] [facility] Future Scheduled Test 1972 00:00:00 Screening for malignant neoplasm of colon (procedure) [code = 053949197] [facility] Future Scheduled Test 1972 00:00:00 Screening for malignant neoplasm of colon (procedure) [code = 107460773] [facility] Future Scheduled Test 1972 00:00:00 Sigmoidoscopy [code = Sigmoidoscopy] [facility] Goal Plan of Care Not e [code = 22065-0] Goal Plan of Care Not e [code = 01444-4] Goal Plan of Care Not e [code = 46935-6] Goal Plan of Care Not e [code = 80590-9] Goal Plan of Care Not e [code = 13545-7] Goal Plan of Care Not e [code = 95156-4] Goal Plan of Care Not e [code = 83604-5] Goal Plan of Care Not e [code = 16000-2] Goal Plan of Care Not e [code = 31471-8] Goal Plan of Care Not e [code = 12792-1] Goal Plan of Care Not e [code = 32860-1] Goal Plan of Care Not e [code = 06535-5] Goal Plan of Care Not e [code = 23891-1] Goal Plan of Care Not e [code = 50142-2] Goal Plan of Care Not e [code = 85038-4] Goal Plan of Care Not e [code = 57265-0] Goal Plan of Care Not e [code = 10958-0] Goal Plan of Care Not e [code = 82767-3] Goal Plan of Care Not e [code = 59328-0] Goal Plan of Care Not e [code = 81339-1] Goal Plan of Care Not e [code = 27002-9] Goal Plan of Care Not e [code = 81716-5] Goal Plan of Care Not e [code = 13616-5] Goal Plan of Care Not e [code = 43532-5] Goal Plan of Care Not e [code = 22760-0] Goal Plan of Care Not e [code = 67862-9] Goal Plan of Care Not e [code = 86316-2] Goal Plan of Care Not e [code = 72738-9] Goal Plan of Care Not e [code = 17681-9] Goal Plan of Care Not e [code = 82324-7] Goal Plan of Care Not e [code = 39758-0] Goal Plan of Care Not e [code = 68366-6] Goal Plan of Care Not e [code = 74518-7] Goal Plan of Care Not e [code = 93226-1] Goal Plan of Care Not e [code = 08096-0] Encounters Start Date/Time End Date/Time Encounter Type Admission Type Attending [facility] Care Department Encounter ID Source 2023-09-07 10:11:03 Inpatient PANKAJ PARRISH [facility] [id number] [facility] 2023-09-05 10:08:27 Inpatient PANKAJ PARRISH [facility] [id number] [facility] 2023-09-05 10:05:12 [facility] [id number] 2023-09-04 04:51:30 Inpatient PANKAJ PARRISH [facility] [id number] [facility] 2023-09-04 04:14:55 Inpatient PANKAJ PARRISH [facility] [id number] [facility] 2023-09-04 03:08:45 Inpatient PANKAJ PARRISH [facility] [id number] [facility] 2023-09-04 02:36:28 Inpatient PANKAJ PARRISH [facility] [id number] [facility] 2023-06-16 09:32:36 Inpatient AYDEE DICKENS [facility] [id number] [facility] 2023-06-16 09:32:09 Inpatient AYDEE DICKENS [facility] [id number] [facility] 2023-06-16 09:31:53 Inpatient AYDEE DICKENS [facility] [id number] [facility] 2023-06-14 07:46:02 [facility] [id number] [facility] 2023-06-14 07:39:22 In[facility] [id number] [facility] 2023-06-14 06:38:38 Inpatient [facility] [id number] [facility] 2023-06-13 13:44:18 Inpatient EL CARA [facility]URGESS [facility] [id number] [facility] 2023-06-13 11:45:24 Inpatient [facility] [id number] [facility] 2023-05-08 11:21:00 Outpatient EL ADAM GARCIA [facility] Surgery [id number] [facility] 2023-04-01 14:26:29 Inpatient ER THOMAS LOZOYA [facility] [id number] [facility] 2023-03-31 09:24:52 Inpatient ER MARIAH ALDRIDGE [facility] [id number] [facility] 2021-05-20 18:48:04 Emergency [facility] [id number] [facility] 2021-05-20 12:43:40 Emergency [facility] [id number] [facility] 2023-11-12 15:15:00 2023-11-12 15:15:00 Outpatient GUSTAVO DELANEY [id number] [facility] 2023-11-10 09:30:00 2023-11-10 09:30:00 Outpatient MYLA MIJARES [id number] [facility] 2023-10-29 00:00:00 2023-10-29 00:00:00 Outpatient GUSTAVO DELANEY [id number] [facility] 2023-10-26 00:00:00 2023-10-26 00:00:00 [facility]ABCOCK [id number] [facility] 00:00:00 2023-10-22 00:00:00 Outpatient GUSTAVO DELANEY [id number] [facility] 2023-10-16 11:10:00 2023-10-16 11:10:00 Outpatient ABDOULAYE SIDDHARTH CYNTHIA MTZ [id number] [facility] 2023-10-15 00:00:00 2023-10-15 00:00:00 Outpatient MD CYNTHIA MARLEY [id number] [facility] 2023-10-15 00:00:00 2023-10-15 00:00:00 Outpatient GUILLENSHY PIERCE [facility] MTZ [id number] [facility] 2023-10-15 00:00:00 2023-10-15 00:00:00 Outpatient MINDYSHY CYNTHIA MTZ [id number] [facility] 2023-10-06 10:45:00 2023-10-06 10:45:00 Outpatient SARAI JULES [id number] [facility] 2023-10-05 11:30:00 2023-10-05 11:30:00 Outpatient PREZASGUSTAVO [id number] [facility] 2023-10-01 00:00:00 2023-10-01 00:00:00 Outpatient PREZASGUSTAVO [id number] [facility] 2023-09-30 14:15:00 2023-09-30 14:15:00 Outpatient PREZASGUSTAVO [id number] [facility] 2023-09-24 00:00:00 2023-09-24 00:00:00 Outpatient PREZASGUSTAVO [id number] [facility] 2023-09-23 00:00:00 2023-09-23 00:00:00 Outpatient TIFFANY PUENTE [id number] [facility] 2023-09-22 00:00:00 2023-09-22 00:00:00 Outpatient PREZAGUSTAVO Alexander [id number] [facility] 2023-09-22 00:00:00 2023-09-22 00:00:00 Outpatient MINDYSHY CYNTHIA MTZ [id number] [facility] 2023-09-16 00:00:00 2023-09-16 00:00:00 Outpatient GUSTAVO DELANEY CYNTHIA [id number] [facility] 2023-09-16 00:00:00 2023-09-16 00:00:00 Outpatient GUSTAVO DELANEY CYNTHIA [id number] [facility] 2023-09-16 00:00:00 2023-09-16 00:00:00 Outpatient GUSTAVO DELANEY CYNTHIA [id number] [facility] 2023-09-14 00:00:00 2023-09-14 00:00:00 Outpatient SHY GUILLEN CYNTHIA MTZ [id number] [facility] 2023-09-14 00:00:00 2023-09-14 00:00:00 Outpatient SHY GUILLEN CYNTHIA MTZ [id number] [facility] 2023-09-11 11:00:00 2023-09-11 11:00:00 Outpatient BJYONATAN AGUIRRE [facility] [id number] [facility] 00:00:00 2023-09-09 00:00:00 Outpatient CYNTHIA MTZ [id number] [facility] 2023-09-04 00:14:00 2023-09-08 10:51:00 Hospital Encounter ANTHONY Loyola, [place] Ob[place], Selin Welch Nabil Selin [facility] [id number] [facility] 2023-09-04 00:14:00 2023-09-08 10:51:00 Inpatient ER NABIL SELIN LIPSCOMB Neurosurger y [id number] [facility] 2023-09-07 18:41:43 2023-09-07 18:41:43 Outpatient NICOLETTE NABIL SELIN LIPSCOMB [facility] [id number] [facility] 2023-09-03 20:52:00 2023-09-03 23:44:00 emergency [facility] [id number] 2023-09-03 20:52:00 2023-09-03 23:44:00 Emergency ER JUANY [facility] [id number] [facility] 2023-09-02 00:00:00 2023-09-02 00:00:00 Outpatient PROVIDERTIFFANY [id number] [facility] 2023-09-01 15:30:00 2023-09-01 15:30:00 Outpatient DEMETRIUS TOBAR [id number] [facility] 2023-08-19 00:00:00 2023-08-19 00:00:00 Outpatient NICOLETTE KETAN [facility] [id number] [facility] 2023-08-13 00:00:00 2023-08-13 00:00:00 Orders Only Ketan Monet [facility] [id number] [facility] 2023-08-12 13:49:00 2023-08-12 16:12:00 Emergency X BRIAN BRYAN [facility] ERT [id number] [facility] 2023-08-12 13:49:00 2023-08-12 16:12:00 Emergency Brian Bryan [facility] 1.2.840.114 350.1.13.10 4.2.7.2.686 [id number] [facility] 2023-06-13 03:43:00 2023-06-16 19:45:00 Hospital Encounter ER Cara Burgess Sahar [facility] [id number] [facility] 2023-06-13 03:43:00 2023-06-16 19:45:00 Inpatient ER AYDEE GO [facility] Internal Med [id number] [facility] 2023-06-15 00:00:00 2023-06-15 00:00:00 Orders Only System, Provider Not In [facility] [id number] [facility] 2023-06-13 16:30:06 2023-06-13 16:30:06 Outpatient AYDEE DICKENS [facility] [id number] [facility] 2023-06-13 00:00:00 2023-06-13 00:00:00 Orders Only [facility] [id number] [facility] 2023-06-13 00:00:00 2023-06-13 00:00:00 Travel [facility] [id number] [facility] 2023-06-12 00:00:00 2023-06-12 00:00:00 Telephone Dallas Gomez [facility] [id number] [facility] 2023-05-28 06:45:00 2023-06-04 17:36:00 Hospital Encounter NICOLETTE Adam Garcia Adi [facility] [id number] [facility] 2023-05-28 06:45:00 2023-06-04 17:36:00 Inpatient NICOLETTE GARCIAADAM [facility] Surgery [id number] [facility] 2023-06-01 09:10:00 2023-06-01 13:00:00 Anesthesia Event Harry Newsome Mujtaba Ahmad [facility] [id number] [facility] 2023-06-01 09:00:00 2023-06-01 11:30:00 Surgery JoseDoniverna Joshi [facility] [id number] [facility] 2023-06-01 09:47:57 2023-06-01 09:47:57 Outpatient ADAM BRANTLEY [facility] [id number] [facility] 2023-06-01 09:40:34 2023-06-01 09:40:34 Outpatient ADAM BRANTLEY SLE [id number] [facility] 2023-05-31 09:25:55 2023-05-31 23:59:00 Inpatient ADAM BRANTLEY SLE [id number] [facility] 2023-05-31 09:00:00 2023-05-31 23:59:00 Hospital Encounter Adam Garcia [facility] [id number] [facility] 2023-05-28 18:15:29 2023-05-28 18:15:29 Outpatient ADAM BRANTLEY SLERigoberto SLE [id number] [facility] 2023-05-28 08:30:00 2023-05-28 11:54:00 Anesthesia Event Yue Bui [facility] [id number] [facility] 2023-05-28 11:41:14 2023-05-28 11:41:14 Outpatient ADAM BRANTLEY SLERigoberto SLE [id number] [facility] 2023-05-28 08:30:00 2023-05-28 11:00:00 Surgery Adam Garcia [facility] [id number] [facility] 2023-05-28 10:00:47 2023-05-28 10:00:47 [facility] [id number] [facility] 2023-05-28 00:00:00 2023-05-28 00:00:00 Travel [facility] [id number] [facility] 2023-05-26 09:00:00 2023-05-26 09:00:00 Hospital Encounter Adam Garcia [facility] [id number] [facility] 2023-05-26 00:00:00 2023-05-26 00:00:00 Outpatient [facility] [id number] [facility] 2023-05-26 00:00:00 2023-05-26 00:00:00 Outpatient NICOLETTE SLE SLE [id number] [facility] 2023-05-26 00:00:00 2023-05-26 00:00:00 Travel [facility] [id number] [facility] 2023-05-13 11:43:03 2023-05-13 11:43:03 Outpatient SFA SFA [id number] Kailey Martínez 2023-05-12 00:00:00 2023-05-12 00:00:00 Orders Only Adam Garcia [facility] [id number] [facility] 2023-05-08 14:11:21 2023-05-08 14:11:21 Outpatient SFA SFA [id number] Adria Martínez 2023-03-29 19:25:00 2023-04-02 20:48:00 Hospital Encounter ER Connie Davey Shireen Kulkarni, Mrinalini Zade [facility] [id number] [facility] 2023-03-29 19:25:00 2023-04-02 20:48:00 Inpatient ER THOMAS LOZOYA Neurology [id number] [facility] 2023-03-31 08:32:56 2023-03-31 00:00:00 Inpatient ER MARIAH ALDRIDGE SLERigoberto SLE [id number] [facility] 2023-03-30 10:24:12 2023-03-30 23:59:00 Outpatient ER CONNIE DAVEY SLERigoberto SLE [id number] [facility] 2023-03-30 09:40:00 2023-03-30 23:59:00 Hospital Encounter Connie Davey [facility] [id number] [facility] 2023-03-30 13:46:20 2023-03-30 13:46:20 Outpatient ER MARIAH ALDRIDGE SLERigoberto SLE [id number] [facility] 2023-03-30 13:46:14 2023-03-30 13:46:14 Outpatient ER MARIAH ALDRIDGE SLERigoberto SLE [id number] [facility] 2023-03-30 10:24:04 2023-03-30 10:24:04 Outpatient ER CONNIE DAVEY SLERigoberto SLE [id number] [facility] 2023-03-30 00:00:00 2023-03-30 00:00:00 Orders Only [facility] [id number] [facility] 2023-03-30 00:00:00 2023-03-30 00:00:00 Travel [facility] [id number] [facility] 2022-12-11 08:56:00 2022-12-11 15:29:00 Emergency X Alfonso ALVARADO [facility] [id number] [facility] 2022-12-11 08:56:00 2022-12-11 15:29:00 Emergency Alfonso Alvarado [facility] 1.2.840.114 350.1.13.10 4.2.7.2.686 [id number] [facility] 2022-11-17 17:25:00 2022-11-18 01:19:00 Emergency X RITCHIE WARREN [facility] ERT [id number] [facility] 2022-11-17 17:25:00 2022-11-18 01:19:00 Emergency Ritchie Warren [facility] 1.2.840.114 350.1.13.10 4.2.7.2.686 [id number] [facility] 2022-08-28 00:00:00 2022-08-28 00:00:00 Patient Outreach Shy Beckman 1.2.840.114 350.1.13.10 4.2.7.2.686 [id number] [facility] 2022-08-20 00:00:00 2022-08-20 00:00:00 Patient Outreach Shy Beckman 1.2.840.114 350.1.13.10 4.2.7.2.686 [id number] [facility] 2022-08-02 17:30:00 2022-08-03 14:29:00 Outpatient ER PARRISH WHEATLEY [facility] Neurology [id number] [facility] 2022-08-02 17:30:00 2022-08-03 14:29:00 Hospital Encounter ER Halima Mendoza Kinjal M Ibe, Chimkama Ngozi Cynthia [facility] [id number] [facility] 2022-08-03 00:00:00 2022-08-03 00:00:00 Orders Only [facility] [id number] [facility] 2022-08-02 00:00:00 2022-08-02 00:00:00 Travel [facility] [id number] [facility] 2022-07-31 11:42:00 2022-08-01 21:48:00 Inpatient Valeria [facility] [id number] [facility] 2022-07-31 11:42:00 2022-08-01 21:48:00 Hospital Encounter Michele RondonLorenza Porter [facility] 1.2.840.114 350.1.13.10 4.2.7.2.686 [id number] [facility] 2022-08-01 00:00:00 2022-08-01 00:00:00 Transition of Care Maria Teresa Nicole RODRIGO BENAVIDES 1.2.840.114 350.1.13.10 4.2.7.2.686 [id number] [facility] 2022-07-28 14:41:38 2022-07-28 14:41:38 Outpatient SFA SFA 9 Adria Martínez 2022-07-28 00:00:00 2022-07-28 00:00:00 Outpatient Visit [id number] 2022-07-24 13:24:40 2022-07-24 13:24:40 Outpatient SFA SFA 5 Adria Galan Mauricio 2022-05-23 14:51:01 2022-05-23 14:51:01 Outpatient SFA SFA 1104 Adria Galan Mauricio 2022-05-23 00:00:00 2022-05-23 00:00:00 Outpatient Visit [id number] 2022-05-04 20:22:00 2022-05-08 14:44:00 Outpatient X ANNEMARIE DUMONTOISABELLLO [facility] [id number] [facility] 2022-05-04 20:22:00 2022-05-08 14:44:00 Emergency Brandyn Ibrahim [facility] 1.840.114 350.1.13.10 4.2.7.2.686 [id number] [facility] 2022-04-13 13:06:00 2022-04-15 15:00:00 Inpatient X CONRAD [facility] [id number] [facility] 2022-04-13 13:06:00 2022-04-15 15:00:00 Hospital Encounter Sapna Vargas [facility] 1.840.114 350.1.13.10 4.2.7.2.686 [id number] [facility] 2022-02-19 10:20:00 2022-02-19 10:30:00 Imm/Inj Visit [facility] Jose Santiago [facility] 1.840.114 350.1.13.10 4.2.7.2.686 [id number] [facility] 2022-02-19 10:20:00 2022-02-19 10:20:00 Outpatient R JOSE PAK [facility] [id number] [facility] 2021-11-23 15:07:00 2021-11-23 17:03:00 Emergency X NICHELLE VIRK [facility] ERT [id number] [facility] 2021-11-23 15:07:00 2021-11-23 17:03:00 Emergency Sav Rondon Folusho F [facility] 1.2840.114 350.1.13.10 4.2.7.2.686 [id number] [facility] 2021-11-21 09:40:00 2021-11-21 09:40:00 Outpatient R [facility] [id number] [facility] 2021-05-24 09:30:00 2021-05-24 09:30:00 Outpatient R JOSE PAK [facility] [id number] [facility] 2021-05-24 08:47:51 2021-05-24 08:57:51 Imm/Inj Visit Vaccine, Helmetta Dangelo Pak [facility] 1..114 350.1.13.10 4.2.7.2.686 [id number] [facility] 2021-05-03 09:40:00 2021-05-03 09:59:35 Outpatient R PASHA JOSE [facility] [id number] [facility] 2021-05-03 09:17:43 2021-05-03 09:59:35 Imm/Inj Visit Vaccine, Helmetta Dangelo Pak [facility] 1..114 350.1.13.10 4.2.7.2.686 [id number] [facility] 2021-04-16 00:00:00 2021-04-16 00:00:00 Orders Only Doctor Unassigned, [place] [facility] 1.2840.114 350.1.13.10 4.2.7.2.686 [id number] [facility] 2021-03-17 00:00:00 2021-03-17 00:00:00 Telephone Miky Nava [facility] 1.2840.114 350.1.13.10 4.2.7.2.686 [id number] [facility] 2021-03-16 20:08:00 2021-03-16 23:24:00 Emergency Fabrice Chakraborty [facility] 1.2.840.114 350.1.13.10 4.2.7.2.686 [id number] [facility] 2021-03-14 18:59:34 2021-03-14 20:19:13 Urgent Care Lydia Desouza Unknown, Attending Critical access hospital?[facility] 1.2.840.114 350.1.13.10 4.2.7.2.686 [id number] [facility] 2021-03-14 19:00:00 2021-03-14 19:00:00 Outpatient R UNKNOWN, ATTENDING [facility] [id number] [facility] 2021-02-19 10:49:00 2021-02-19 14:48:00 Emergency Anali Monroy S [facility] 1.2.840.114 350.1.13.10 4.2.7.2.686 [id number] [facility] 2019-03-09 00:00:00 2019-03-09 00:00:00 Darielakimberley IsrraelYehuda [facility] 1.2.840.114 350.1.13.10 4.2.7.2.686 [id number] 2019-03-09 00:00:00 2019-03-09 00:00:00 Darielakimberley IbarraochYehuda stoner [facility] 1.2.840.114 350.1.13.10 4.2.7.2.686 [id number] [phone] [id number] [facility] Results Test Description Test Time Test Comments Results Result Co mments Source BLOOD [id number] 07:00:10* Test Item Value Reference Range Interpretation Comme nts CULTURE (BEAKER) (test code = 1095) No growth in 5 days XR KNEE 3 VIEWS [id number] 09[facility] 1970 Sex: FXR KNEE 3 VIEWS LEFT CLINICAL INDICATION: S/p fall COMPARISON: NoneFINDINGS: 3views of the left knee.There is no fracture or malalignment. The femorotibial andfemoropatellar joint spaces are intact.No joint fluid is demonstrated.Surrounding soft tissues are unremarkable. Scattered atheroscleroticvascular calcifications.IMPRESSION: No acute fracture or malalignment of the knee Electronically Signed By: Maxim Sultana09/08/2023 09:29 CDTWorkstation Name: [id number] 08:53:50* Test Item Value Reference Range Interpretation Comme nts POC-Glucose Meter (test code = 1538) 101 mg/dL 70-110 : TESTED AT [address], [address]: After School Program Assistant/Capture Manager ID = [id number] for Umeh, Akumbu Lab Interpretation (test code = 04854-5) [facility] [id number] 08:53:50* Test Item Value Reference Range Interpretation Comme nts POC-Glucose Meter (test code = 1538) 101 mg/dL 70-110 : TESTED AT [place] [id number] [facility], [address]: After School Program Assistant/Capture Manager ID = [id number] for Umeh, Akumbu Lab Interpretation (test code = 23537-9) [facility] [id number] 08:53:50* Test Item Value Reference Range Interpretation Comme nts POC-Glucose Meter (test code = 1538) 101 mg/dL 70-110 : TESTED AT [address], [address]: After School Program Assistant/Capture Manager ID = [id number] for Umeh, Akumbu Lab Interpretation (test code = 76049-3) [facility] [id number] 08:53:50* Test Item Value Reference Range Interpretation Comme nts POC-Glucose Meter (test code = 1538) 101 mg/dL 70-110 : TESTED AT [address], [address]: After School Program Assistant/Capture Manager ID = [id number] for Umeh, Akumbu Lab Interpretation (test code = 46170-1) [facility] [id number] 08:53:50* Test Item Value Reference Range Interpretation Comme nts POC-Glucose Meter (test code = 1538) 101 mg/dL 70-110 : TESTED AT [address], [address]: After School Program Assistant/Capture Manager ID = [id number] for Umeh, Akumbu Lab Interpretation (test code = 83587-7) [facility] [id number] 08:53:50* Test Item Value Reference Range Interpretation Comme nts POC-Glucose Meter (test code = 1538) 101 mg/dL 70-110 : TESTED AT [address], [address]: After School Program Assistant/Capture Manager ID = [id number] for Umeh, Akumbu Lab Interpretation (test code = 02159-4) [facility] [id number] 08:53:50* Test Item Value Reference Range Interpretation Comme nts POC-Glucose Meter (test code = 1538) 101 mg/dL 70-110 : TESTED AT [address], [address]: After School Program Assistant/Capture Manager ID = [id number] for Umeh, Akumbu Lab Interpretation (test code = 76833-0) [facility] [id number] 08:53:50* Test Item Value Reference Range Interpretation Comme nts POC-Glucose Meter (test code = 1538) 101 mg/dL 70-110 : TESTED AT [address], [address]: After School Program Assistant/Capture Manager ID = [id number] for Umeh, Akumbu Lab Interpretation (test code = 79881-4) [facility] [id number] 08:53:50* Test Item Value Reference Range Interpretation Comme nts POC-Glucose Meter (test code = 1538) 101 mg/dL 70-110 : TESTED AT [address], [address]: After School Program Assistant/Capture Manager ID = [id number] for Umeh, Akumbu Lab Interpretation (test code = 56811-3) [facility] [id number] 08:53:50* Test Item Value Reference Range Interpretation Comme nts POC-Glucose Meter (test code = 1538) 101 mg/dL 70-110 : TESTED AT [address], [address]: After School Program Assistant/Capture Manager ID = [id number] for Umeh, Akumbu Lab Interpretation (test code = 17752-1) [facility] [id number] 08:53:50* Test Item Value Reference Range Interpretation Comme nts POC-Glucose Meter (test code = 1538) 101 mg/dL 70-110 : TESTED AT [address], [address]: After School Program Assistant/Capture Manager ID = [id number] for Umeh, Akumbu Lab Interpretation (test code = 86159-2) [facility] [id number] 08:53:50* Test Item Value Reference Range Interpretation Comme nts POC-Glucose Meter (test code = 1538) 101 mg/dL 70-110 : TESTED AT [address], [address]: After School Program Assistant/Capture Manager ID = [id number] for Umeh, Akumbu Lab Interpretation (test code = 95643-0) [facility] [id number] 08:53:50* Test Item Value Reference Range Interpretation Comme nts POC-Glucose Meter (test code = 1538) 101 mg/dL 70-110 : TESTED AT [address], [address]: After School Program Assistant/Capture Manager ID = [id number] for Umeh, Akumbu Lab Interpretation (test code = 01884-2) [facility] [id number] 08:53:50* Test Item Value Reference Range Interpretation Comme nts POC-GLUCOSE METER (BEAKER) (test code = 1538) 101 mg/dL 70-110 : TESTED AT [facility] [address] [facility], [address]: After School Program Assistant/Capture Manager ID = [id number] for Marie Delacruz BASIC METABOLIC [id number] 05:40:45* Test Item Value Reference Range Interpretation [...] GFR is not applicable for dialysis patients After School Program Assistant ID - [id number] 05:40:45* Test Item Value Reference Range Interpretation Comme nts MAGNESIUM (BEAKER) (test cod e = 627) 2.1 mg/dL 1.6-2.6 After School Program Assistant ID - [id number] 05:40:45* Test Item Value Reference Range Interpretation Comme nts PHOSPHORUS (BEAKER) (test co de = 604) 5.0 mg/dL 2.3-4.7 H After School Program Assistant ID - ADMINCBC W/PLT COUNT & AUTO [id number] 04:49:23* Test Item Value Reference Range Interpretation [...] code = 2801) 0.40 % 0.00-1.00 POCT-GLUCOSE [id number] 21:40:23* Test Item Value Reference Range Interpretation Comme nts POC-GLUCOSE METER (BEAKER) (test code = 1538) 144 mg/dL 70-110 H : TESTED AT [facility] [address] [place], [address]: After School Program Assistant/Capture Manager ID = [id number] for Goldie Baezasenia [id number] 04:05:54* Test Item Value Reference Range Interpretation Comme nts MAGNESIUM (BEAKER) (test code = 627) 2.0 mg/dL 1.6-2.6 Specimen sligh tly hemolyzed After School Program Assistant ID - MADELINE [id number] 04:05:54* Test Item Value Reference Range Interpretation Comme nts PHOSPHORUS (BEAKER) (test code = 604) 4.5 mg/dL 2.3-4.7 Specimen sligh tly hemolyzed After School Program Assistant ID - MADELINE WBASIC METABOLIC [id number] 04:05:54* Test Item Value Reference Range Interpretation [...] GFR is not applicable for dialysis patients After School Program Assistant GEOVANNA CORREA WCBC W/PLT COUNT & AUTO [id number] 03:40:48* Test Item Value Reference Range Interpretation [...] code = 2801) 0.30 % 0.00-1.00 POCT-GLUCOSE [id number] 21:28:35* Test Item Value Reference Range Interpretation Comme nts POC-GLUCOSE METER (BEAKER) (test code = 1538) 127 mg/dL 70-110 H : TESTED AT [address], [address]: After School Program Assistant/Capture Manager ID = [id number] for Ryan Morin POCT-GLUCOSE [id number] 18:49:21* Test Item Value Reference Range Interpretation Comme nts POC-GLUCOSE METER (BEAKER) (test code = 1538) 122 mg/dL 70-110 H : TESTED AT [address], [address]: After School Program Assistant/Capture Manager ID = [id number] for Tyrell Lauren POCT-GLUCOSE [id number] 13:27:27* Test Item Value Reference Range Interpretation Comme nts POC-GLUCOSE METER (BEAKER) (test code = 1538) 130 mg/dL 70-110 H : TESTED AT [address], [address]: After School Program Assistant/Capture Manager ID = [id number] for Lauren Santillan [id number] 09:09:14* Test Item Value Reference Range Interpretation Comme nts MAGNESIUM (BEAKER) (test cod e = 627) 2.2 mg/dL 1.6-2.6 [id number] 09:09:14* Test Item Value Reference Range Interpretation Comme nts PHOSPHORUS (BEAKER) (test co de = 604) 4.8 mg/dL 2.3-4.7 H BASIC METABOLIC [id number] 09:09:14* Test Item Value Reference Range Interpretation [...] is not applicable for dialysis patients POCT-GLUCOSE [id number] 08:33:30* Test Item Value Reference Range Interpretation Comme [facility] POC-GLUCOSE METER (BEAKER) (test code = 1538) 132 mg/dL 70-110 H : TESTED AT [facility] [address] [place], [address]: After School Program Assistant/Capture Manager ID = [id number] for Lauren Santillan CBC W/PLT COUNT & AUTO [id number] 05:47:59* Test Item Value Reference Range Interpretation [...] code = 2801) 0.40 % 0.00-1.00 POCT-GLUCOSE [id number] 21:35:37* Test Item Value Reference Range Interpretation Comme nts POC-GLUCOSE METER (BEAKER) (test code = 1538) 129 mg/dL 70-110 H : TESTED AT [facility] [address] [facility], [address]: After School Program Assistant/Capture Manager ID = [id number] for Ryan Morin MR BRAIN WITH & WITHOUT IV [id number] 15:49:58 [facility] : 1970 Sex: [...] Signed By: Zeinab Dempsey09/05/2023 15:53 CDTWorkstation Name: [id number] METER 2023-09-05 08:34:25* Test Item Value Reference Range Interpretation Comme nts POC-GLUCOSE METER (BEAKER) (test code = 1538) 115 mg/dL 70-110 H : TESTED AT [facility] [address] [facility], [address]: After School Program Assistant/Capture Manager ID = [id number] for DOMINGA AMADOR BASIC METABOLIC [id number] 06:06:56* Test Item Value Reference Range Interpretation [...] GFR is not applicable for dialysis patients After School Program Assistant ID - [id number] 06:06:56* Test Item Value Reference Range Interpretation Comme nts MAGNESIUM (BEAKER) (test cod e = 627) 2.2 mg/dL 1.6-2.6 After School Program Assistant ID - [id number] 06:06:56* Test Item Value Reference Range Interpretation Comme nts PHOSPHORUS (BEAKER) (test co de = 604) 3.8 mg/dL 2.3-4.7 After School Program Assistant ID - ADMINCBC W/PLT COUNT & AUTO [id number] 05:29:32* Test Item Value Reference Range Interpretation [...] code = 2801) 0.50 % 0.00-1.00 POCT-GLUCOSE [id number] 04:55:18* Test Item Value Reference Range Interpretation Comme nts POC-GLUCOSE METER (BEAKER) (test code = 1538) 99 mg/dL 70-110 : TESTED AT [facility] [address] [facility], [address]: After School Program Assistant/Capture Manager ID = [id number] for Ryan Morin POCT-GLUCOSE [id number] 21:49:23* Test Item Value Reference Range Interpretation Comme nts POC-GLUCOSE METER (BEAKER) (test code = 1538) 124 mg/dL 70-110 H : TESTED AT [facility] [address] [facility], [address]: After School Program Assistant/Capture Manager ID = [id number] for Ryan Morin POCT-GLUCOSE [id number] 15:55:53* Test Item Value Reference Range Interpretation Comme nts POC-GLUCOSE METER (BEAKER) (test code = 1538) 126 mg/dL 70-110 H : TESTED AT [facility] [address] [facility], [address]: After School Program Assistant/Capture Manager ID = [id number] for Tramaine Daniels [id number] 12:37:56* Test Item Value Reference Range Interpretation Comme nts PROCALCITONIN (BEAKER) (test code = 3036) < ng/mL <0.05 SEPSIS RISK (ng/mL)Low: 0.05-0.50Intermediate: 0.51-2.00High: >=2.01SARS- CoV2/Influenza/RSV [id number] 12:18:09* Test Item Value Reference Range Interpretation Comments SARS-COV2/RT-PCR (test code = 07329-0) Negative Negative The SARS-CoV-2 target nucleic acids [...] provider. Influenza A RT-PCR (test code = 06513-3) Negative Negative The Flu A target nucleic acids are not detected in this specimen. Influenza B RT-PCR (test code = 02161-2) Negative Negative The Flu B target nucleic acids are not detected in this specimen. RSV by RT-PCR (test code = 07178-4) Negative Negative The RSV target nucleic acids [...] the Act. Fact Sheet for Healthcare Providers:https://w NavPrescience/Docu ments/Xpert%20Xpres s%20SARS%20CoV-2/Fa ct%20Sheets/302-390 2%79EXKD-HHZ-0%20HE ALTHCARE%20PROVIDER S%20FACT%20SHEET.pd f Fact Sheet for Healthcare Patients:https://maria elena Instaradio/Docum ents/Xpert%20Xpress %20SARS%20Cov-2/Fac t%20Sheets/302-3801 %77JKFX-FPV-7%20PAT IENT%20FACT%20SHEET .pdf Lab Interpretation (test code = 11485-8) [facility] [id number] 12:18:09* Test Item Value Reference Range Interpretation Comments SARS-COV2/RT-PCR (test code = 73152-9) Negative Negative The SARS-CoV-2 target nucleic acids [...] provider. Influenza A RT-PCR (test code = 70944-6) Negative Negative The Flu A target nucleic acids are not detected in this specimen. Influenza B RT-PCR (test code = 22821-5) Negative Negative The Flu B target nucleic acids are not detected in this specimen. RSV by RT-PCR (test code = 58061-4) Negative Negative The RSV target nucleic acids [...] SARS-CoV-2/Flu/RSV by their healthcare provider. Results from [facility] Xpert Xpress SARS-CoV-2/Flu/RSV test should be [...] the Act. Fact Sheet for Healthcare Providers:https://w NavPrescience/Docu ments/Xpert%20Xpres s%20SARS%20CoV-2/Fa ct%20Sheets/302-390 2%54PPQP-LZP-7%20HE ALTHCARE%20PROVIDER S%20FACT%20SHEET.pd f Fact Sheet for Healthcare Patients:https://maria elena Instaradio/Docum ents/Xpert%20Xpress %20SARS%20Cov-2/Fac t%20Sheets/302-3801 %37WQNQ-NCY-2%20PAT IENT%20FACT%20SHEET .pdf Lab Interpretation (test code = 66405-7) [facility] GO-[id number] 12:18:09* Test Item Value Reference Range Interpretation Comments SARS-COV2/RT-PCR (test code = 50761-0) Negative Negative The SARS-CoV-2 target nucleic acids [...] provider. Influenza A RT-PCR (test code = 46999-1) Negative Negative The Flu A target nucleic acids are not detected in this specimen. Influenza B RT-PCR (test code = 31292-1) Negative Negative The Flu B target nucleic acids are not detected in this specimen. RSV by RT-PCR (test code = 91895-0) Negative Negative The RSV target nucleic acids [...] SARS-CoV-2/Flu/RSV by their healthcare provider. Results from [facility] Xpert Xpress SARS-CoV-2/Flu/RSV test should be [...] the Act. Fact Sheet for Healthcare Providers:https://w ww.DaoliCloud.[employer]/Docu ments/Xpert%20Xpres s%20SARS%20CoV-2/Fa ct%20Sheets/302-390 2%35QEBP-QPR-9%20HE ALTHCARE%20PROVIDER S%20FACT%20SHEET.pd f Fact Sheet for Healthcare Patients:https://ww w.i-dispo.com/Docum ents/Xpert%20Xpress %20SARS%20Cov-2/Fac t%20Sheets/302-3801 %72ADAF-MRF-2%20PAT IENT%20FACT%20SHEET .pdf Lab Interpretation (test code = 50007-6) [facility]V [id number] 12:18:09* Test Item Value Reference Range Interpretation Comments SARS-COV2/RT-PCR (test code = 07151-0) Negative Negative The SARS-CoV-2 target nucleic acids [...] provider. Influenza A RT-PCR (test code = 79118-4) Negative Negative The Flu A target nucleic acids are not detected in this specimen. Influenza B RT-PCR (test code = 50840-4) Negative Negative The Flu B target nucleic acids are not detected in this specimen. RSV by RT-PCR (test code = 83711-7) Negative Negative The RSV target nucleic acids [...] SARS-CoV-2/Flu/RSV by their healthcare provider. Results from [facility] Xpert Xpress SARS-CoV-2/Flu/RSV test should be [...] the Act. Fact Sheet for Healthcare Providers:https://w NavPrescience/Docu ments/Xpert%20Xpres s%20SARS%20CoV-2/Fa ct%20Sheets/302-390 2%68JMGL-KSV-9%20HE ALTHCARE%20PROVIDER S%20FACT%20SHEET.pd f Fact Sheet for Healthcare Patients:https://TripLingo/Docum ents/Xpert%20Xpress %20SARS%20Cov-2/Fac t%20Sheets/302-3801 %41BOSH-CFO-8%20PAT IENT%20FACT%20SHEET .pdf Lab Interpretation (test code = 15704-5) [facility]V [id number] 12:18:09* Test Item Value Reference Range Interpretation Comments SARS-COV2/RT-PCR (test code = 20685-6) Negative Negative The SARS-CoV-2 target nucleic acids [...] provider. Influenza A RT-PCR (test code = 58976-6) Negative Negative The Flu A target nucleic acids are not detected in this specimen. Influenza B RT-PCR (test code = 53643-8) Negative Negative The Flu B target nucleic acids are not detected in this specimen. RSV by RT-PCR (test code = 32054-3) Negative Negative The RSV target nucleic acids [...] the Act. Fact Sheet for Healthcare Providers:https://w NavPrescience/Docu ments/Xpert%20Xpres s%20SARS%20CoV-2/Fa ct%20Sheets/302-390 2%07ZEIB-FSK-8%20HE ALTHCARE%20PROVIDER S%20FACT%20SHEET.pd f Fact Sheet for Healthcare Patients:https://ww Instaradio/Docum ents/Xpert%20Xpress %20SARS%20Cov-2/Fac t%20Sheets/302-3801 %28UQSE-UQY-2%20PAT IENT%20FACT%20SHEET .pdf Lab Interpretation (test code = 01712-7) [facility] [id number] 12:18:09* Test Item Value Reference Range Interpretation Comments SARS-COV2/RT-PCR (test code = 29381-1) Negative Negative The SARS-CoV-2 target nucleic acids [...] provider. Influenza A RT-PCR (test code = 16967-1) Negative Negative The Flu A target nucleic acids are not detected in this specimen. Influenza B RT-PCR (test code = 62333-1) Negative Negative The Flu B target nucleic acids are not detected in this specimen. RSV by RT-PCR (test code = 89133-5) Negative Negative The RSV target nucleic acids [...] of the Act. Fact Sheet for Healthcare Providers:https://manuel NavPrescience/Docu ments/Xpert%20Xpres s%20SARS%20CoV-2/Fa ct%20Sheets/302-390 2%09CNOZ-EEE-2%20HE ALTHCARE%20PROVIDER S%20FACT%20SHEET.pd f Fact Sheet for Healthcare Patients:https://maria elena Instaradio/Docum ents/Xpert%20Xpress %20SARS%20Cov-2/Fac t%20Sheets/302-3801 %49VRVZ-SQV-1%20PAT IENT%20FACT%20SHEET .pdf Lab Interpretation (test code = 52308-3) [facility]RSV [id number] 12:18:09* Test Item Value Reference Range Interpretation Comments SARS-COV2/RT-PCR (test code = 39526-4) Negative Negative The SARS-CoV-2 target nucleic acids [...] provider. Influenza A RT-PCR (test code = 68055-4) Negative Negative The Flu A target nucleic acids are not detected in this specimen. Influenza B RT-PCR (test code = 37955-2) Negative Negative The Flu B target nucleic acids are not detected in this specimen. RSV by RT-PCR (test code = 55705-1) Negative Negative The RSV target nucleic acids [...] SARS-CoV-2/Flu/RSV by their healthcare provider. Results from [facility] Xpert Xpress SARS-CoV-2/Flu/RSV test should be [...] the Act. Fact Sheet for Healthcare Providers:https://w NavPrescience/Docu ments/Xpert%20Xpres s%20SARS%20CoV-2/Fa ct%20Sheets/302-390 2%57BARJ-FRR-5%20HE ALTHCARE%20PROVIDER S%20FACT%20SHEET.pd f Fact Sheet for Healthcare Patients:https://maria elena Instaradio/Docum ents/Xpert%20Xpress %20SARS%20Cov-2/Fac t%20Sheets/302-3801 %09VKGF-RLS-2%20PAT IENT%20FACT%20SHEET .pdf Lab Interpretation (test code = 30284-1) [facility] [id number] 12:18:09* Test Item Value Reference Range Interpretation Comments SARS-COV2/RT-PCR (test code = 42087-9) Negative Negative The SARS-CoV-2 target nucleic acids [...] provider. Influenza A RT-PCR (test code = 24890-5) Negative Negative The Flu A target nucleic acids are not detected in this specimen. Influenza B RT-PCR (test code = 43426-6) Negative Negative The Flu B target nucleic acids are not detected in this specimen. RSV by RT-PCR (test code = 72297-4) Negative Negative The RSV target nucleic acids [...] Act. Fact Sheet for Healthcare Providers:https://w maria elena.DaoliCloud.[employer]/Docu ments/Xpert%20Xpres s%20SARS%20CoV-2/Fa ct%20Sheets/302-390 2%58GWBG-TPX-2%20HE ALTHCARE%20PROVIDER S%20FACT%20SHEET.pd f Fact Sheet for Healthcare Patients:https://ww w.i-dispo.com/Docum ents/Xpert%20Xpress %20SARS%20Cov-2/Fac t%20Sheets/302-3801 %49SLJL-GCR-5%20PAT IENT%20FACT%20SHEET .pdf Lab Interpretation (test code = 18415-2) [facility]RSV [id number] 12:18:09* Test Item Value Reference Range Interpretation Comments SARS-COV2/RT-PCR (test code = 90128-2) Negative Negative The SARS-CoV-2 target nucleic acids [...] provider. Influenza A RT-PCR (test code = 30102-3) Negative Negative The Flu A target nucleic acids are not detected in this specimen. Influenza B RT-PCR (test code = 32719-4) Negative Negative The Flu B target nucleic acids are not detected in this specimen. RSV by RT-PCR (test code = 30267-6) Negative Negative The RSV target nucleic acids [...] of the Act. Fact Sheet for Healthcare Providers:https://Nevro/Docu ments/Xpert%20Xpres s%20SARS%20CoV-2/Fa ct%20Sheets/302-390 2%78YUOT-HBA-9%20HE ALTHCARE%20PROVIDER S%20FACT%20SHEET.pd f Fact Sheet for Healthcare Patients:https://TripLingo/Docum ents/Xpert%20Xpress %20SARS%20Cov-2/Fac t%20Sheets/302-3801 %57NUWO-YFA-6%20PAT IENT%20FACT%20SHEET .pdf Lab Interpretation (test code = 53794-7) [facility]RSV [id number] 12:18:09* Test Item Value Reference Range Interpretation Comments SARS-COV2/RT-PCR (test code = 73227-9) Negative Negative The SARS-CoV-2 target nucleic acids [...] provider. Influenza A RT-PCR (test code = 73256-4) Negative Negative The Flu A target nucleic acids are not detected in this specimen. Influenza B RT-PCR (test code = 76642-3) Negative Negative The Flu B target nucleic acids are not detected in this specimen. RSV by RT-PCR (test code = 03819-2) Negative Negative The RSV target nucleic acids [...] the Act. Fact Sheet for Healthcare Providers:https://w NavPrescience/Docu ments/Xpert%20Xpres s%20SARS%20CoV-2/Fa ct%20Sheets/302-390 2%67GAUJ-CFK-9%20HE ALTHCARE%20PROVIDER S%20FACT%20SHEET.pd f Fact Sheet for Healthcare Patients:https://ww Instaradio/Docum ents/Xpert%20Xpress %20SARS%20Cov-2/Fac t%20Sheets/302-3801 %01FSRO-HRB-8%20PAT IENT%20FACT%20SHEET .pdf Lab Interpretation (test code = 49236-4) [facility] [id number] 12:18:09* Test Item Value Reference Range Interpretation Comments SARS-COV2/RT-PCR (test code = 06991-4) Negative Negative The SARS-CoV-2 target nucleic acids [...] provider. Influenza A RT-PCR (test code = 44187-4) Negative Negative The Flu A target nucleic acids are not detected in this specimen. Influenza B RT-PCR (test code = 34718-1) Negative Negative The Flu B target nucleic acids are not detected in this specimen. RSV by RT-PCR (test code = 99253-2) Negative Negative The RSV target nucleic acids [...] of the Act. Fact Sheet for Healthcare Providers:https://manuel NavPrescience/Docu ments/Xpert%20Xpres s%20SARS%20CoV-2/Fa ct%20Sheets/302-390 2%66BNAG-EIU-7%20HE ALTHCARE%20PROVIDER S%20FACT%20SHEET.pd f Fact Sheet for Healthcare Patients:https://maria elena Instaradio/Docum ents/Xpert%20Xpress %20SARS%20Cov-2/Fac t%20Sheets/302-3801 %71WFHT-UCE-2%20PAT IENT%20FACT%20SHEET .pdf Lab Interpretation (test code = 76801-6) [facility]V [id number] 12:18:09* Test Item Value Reference Range Interpretation Comments SARS-COV2/RT-PCR (test code = 16309-6) Negative Negative The SARS-CoV-2 target nucleic acids [...] provider. Influenza A RT-PCR (test code = 01616-7) Negative Negative The Flu A target nucleic acids are not detected in this specimen. Influenza B RT-PCR (test code = 78280-6) Negative Negative The Flu B target nucleic acids are not detected in this specimen. RSV by RT-PCR (test code = 36177-2) Negative Negative The RSV target nucleic acids [...] the Act. Fact Sheet for Healthcare Providers:https://w NavPrescience/Docu ments/Xpert%20Xpres s%20SARS%20CoV-2/Fa ct%20Sheets/302-390 2%46ZPTE-AWK-1%20HE ALTHCARE%20PROVIDER S%20FACT%20SHEET.pd f Fact Sheet for Healthcare Patients:https://TripLingo/Docum ents/Xpert%20Xpress %20SARS%20Cov-2/Fac t%20Sheets/302-3801 %13KTRH-RWA-3%20PAT IENT%20FACT%20SHEET .pdf Lab Interpretation (test code = 98532-8) [facility] [id number] 12:18:09* Test Item Value Reference Range Interpretation Comments SARS-COV2/RT-PCR (test code = 01133-4) Negative Negative The SARS-CoV-2 target nucleic acids [...] provider. Influenza A RT-PCR (test code = 33507-8) Negative Negative The Flu A target nucleic acids are not detected in this specimen. Influenza B RT-PCR (test code = 99133-0) Negative Negative The Flu B target nucleic acids are not detected in this specimen. RSV by RT-PCR (test code = 89154-3) Negative Negative The RSV target nucleic acids [...] Act. Fact Sheet for Healthcare Providers:https://w maria elena.DaoliCloud.[employer]/Docu ments/Xpert%20Xpres s%20SARS%20CoV-2/Fa ct%20Sheets/302-390 2%16NNIH-FNF-9%20HE ALTHCARE%20PROVIDER S%20FACT%20SHEET.pd f Fact Sheet for Healthcare Patients:https://ww w.i-dispo.com/Docum ents/Xpert%20Xpress %20SARS%20Cov-2/Fac t%20Sheets/302-3801 %21WTGW-TCV-1%20PAT IENT%20FACT%20SHEET .pdf Lab Interpretation (test code = 84847-7) [facility] [id number] 12:18:09* Test Item Value Reference Range Interpretation Comme nts SARS-COV2/RT-PCR (test code = 7623665) Negative Negative The SARS-CoV-2 t arget nucleic [...] provider. INFLUENZA A RT-PCR (test code = 4471461) Negative Negative The Flu A target nucleic acids are not detected in this specimen. INFLUENZA B RT-PCR (test code = 0312031) Negative Negative The Flu B target nucleic acids are not detected in this specimen. RSV RT-PCR (test code = 9183297) Negative Negative The RSV target n ucleic [...] SARS-CoV-2/Flu/RSV by their healthcare provider. Results from [facility] Xpert Xpress SARS-CoV-2/Flu/RSV test should be [...] 564(g) of the Act.Fact Sheet for Healthcare Providers:https://www.i-dispo.com/Documents/Xpert%20Xpress%20SARS%20CoV-2/Fact%2 0Sheets/3023902%97MSXO-DDY-6%20HEALTHCARE%20PROVIDERS%20FACT%20SHEET.pdfFact Sheet for Healthcare Patients:https://ww w.i-dispo.com/Documents/Xpert%20Xpress%20SARS%20Cov-2/Fact%20Sheets/3023801%20S ARS-COV-2%20PATIENT%20FACT%20SHEET.pdfPOCT-GLUCOSE OEXWM8469-64-92 11:08:35* Test Item Value Reference Range Interpretation Comme nts POC-GLUCOSE METER (BEAKER) (test code = 1538) 111 mg/dL 70-110 H : TESTED AT [facility] [address] [facility], [address]: After School Program Assistant/Capture Manager ID = [id number] for Tramaine Daniels POCT-GLUCOSE [id number] 08:16:42* Test Item Value Reference Range Interpretation Comme nts POC-GLUCOSE METER (BEAKER) (test code = 1538) 108 mg/dL 70-110 : TESTED AT [facility] [address] [facility], [address]: After School Program Assistant/Capture Manager ID = [id number] for Beata Vargas MR CERVICAL SPINE WITHOUT IV [id number] 07:58:49 [facility] 1970 Sex: [...] spine.Posterior ligament ossifications at the calcifications at M67-Z91pvvlnsn moderate spinal canal stenosisPosterior disc osteophyte at the T11-T12 level causing mild spinal canalstenosisThe spinal cord is normal in caliber and signal intensity. There is no significant foraminal or spinal canal stenosis.2.1 x 2.3 cm left adrenal nodule, incompletely characterizedParaspinal soft tissues are unremarkable.Lumbar spine:Postoperative changes from posterior decompression at the L3 and W2aopfaj. A 1.3 x 1.5 cm (AP by [...] Signed By: Maxim Sultana09/04/2023 08:00 CDTWorkstation Name: [id number] THORACIC SPINE WITHOUT IV [id number] 07:58:49 [facility] : 1970 Sex: [...] spine.Posterior ligament ossifications at the calcifications at P92-A65qpjfxjg moderate spinal canal stenosisPosterior disc osteophyte at the T11-T12 level causing mild spinal canalstenosisThe spinal cord is normal in caliber and signal intensity. There is no significant foraminal or spinal canal stenosis.2.1 x 2.3 cm left adrenal nodule, incompletely characterizedParaspinal soft tissues are unremarkable.Lumbar spine:Postoperative changes from posterior decompression at the L3 and K4oicpjy. A 1.3 x 1.5 cm (AP by [...] Signed By: Maxim Sultana09/04/2023 08:00 CDTWorkstation Name: [id number] LUMBAR SPINE WITHOUT IV [id number] [facility]58[facility] 1970 Sex: FMR [...] spine.Posterior ligament ossifications at the calcifications at N87-U55kibfgbu moderate spinal canal stenosisPosterior disc osteophyte at the T11-T12 level causing mild spinal canalstenosisThe spinal cord is normal in caliber and signal intensity. There is no significant foraminal or spinal canal stenosis.2.1 x 2.3 cm left adrenal nodule, incompletely characterizedParaspinal soft tissues are unremarkable.Lumbar spine:Postoperative changes from posterior decompression at the L3 and O6mwndcq. A 1.3 x 1.5 cm (AP by [...] Signed By: Maxim Sultana09/04/2023 08:00 CDTWorkstation Name: [id number] 2023-09-04 07:46:14* Test Item Value Reference Range Interpretation Comme nts FERRITIN (BEAKER) (test code = 361) 31.77 ng/mL 5.00-275.00 After School Program Assistant ID - hgIRON, TIBC, % SAT. (WITHOUT FERRITIN)2023-09-04 07:24:52* Test Item Value Reference Range Interpretation Comme nts IRON (BEAKER) (test code = 547) 22.0 ug/dL 40.0-160.0 L TOTAL IRON BINDING CAPACITY (BEAKER) (test code = 769) 369 ug/dL 250-450 IRON % SATURATION (2) (BEAKE R) (test code = 2590) 6 % 20-55 L After School Program Assistant ID - hgCT LUMBAR SPINE WITHOUT IV [id number] [facility]42[facility] 1970 Sex: FEXAM: [...] spine:Bones/alignment: Age- indeterminate nondisplaced fracture of the Z2juxjrraui elements, predominantly i nvolving the lamina and [...] Signed By: Suzan Weaver09/04/2023 05:45 CDTWorkstation Name: [id number] THORACIC SPINE WITHOUT IV [id number] [facility]42[facility] 1970 Sex: FEXAM: [...] spine:Bones/alignment: Age- indeterminate nondisplaced fracture of the Z1blhfbpjvb elements, predominantly i nvolving the lamina and [...] Signed By: Suzan Weaver09/04/2023 05:45 CDTWorkstation Name: [id number] 04:44:34* Test Item Value Reference Range Interpretation Comme nts FIBRINOGEN LEVEL (BEAKER) (t est code = 658) 410 mg/dl 225-434 Urinalysis without Xsqmjdyuuyd9841-05-74 03:58:52* Test Item Value Reference Range Interpretation Comme nts Color, UA (test code = 5778-6) Light Yellow Clarity, UA (test code = 5767-9) Hazy Specific [place], UA (test code = 5811-5) 1.017 1.001-1.035 pH, UA (test code = 5803-2) 6.0 5.0-8.0 Protein, UA (test code = 92899-7) 10 mg/dL Negative A Glucose, UA (test code = 365) Negative Negative Ketones, UA (test code = 2514-8) Trace Negative A Bilirubin, UA (test code = 30094-4) Negative Negative Blood, UA (test code = 50222-3) Trace Negative A Nitrite, UA (test code = 5802-4) Negative Negative Leukocytes, UA (test code = 5799-2) Negative Negative Urobilinogen, UA (test code = 75499-9) 0.2 0.2-1.0 Specimen Source (test code = 2795) LYNDSAY (test code = LYNDSAY) After School Program Assistant ID - [auto]After School Program Assistant ID - tech Lab Interpretation (test code = 64667-3) [facility] Akutkjrqutj2215-01-04 03:58:52* Test Item Value Reference Range Interpretation Comme nts Color, UA (test code = 5778-6) Light Yellow Clarity, UA (test code = 5767-9) Hazy Specific [place], UA (test code = 5811-5) 1.017 1.001-1.035 pH, UA (test code = 5803-2) 6.0 5.0-8.0 Protein, UA (test code = 09167-0) 10 mg/dL Negative A Glucose, UA (test code = 365) Negative Negative Ketones, UA (test code = 2514-8) Trace Negative A Bilirubin, UA (test code = 17435-0) Negative Negative Blood, UA (test code = 78429-0) Trace Negative A Nitrite, UA (test code = 5802-4) Negative Negative Leukocytes, UA (test code = 5799-2) Negative Negative Urobilinogen, UA (test code = 91808-8) 0.2 0.2-1.0 Specimen Source (test code = 2795) LYNDSAY (test code = LYNDSAY) After School Program Assistant ID - [auto]After School Program Assistant ID - tech Lab Interpretation (test code = 51694-0) [facility] Nyhzacwmswy2846-95-79 03:58:52* Test Item Value Reference Range Interpretation Comme nts Color, UA (test code = 5778-6) Light Yellow Clarity, UA (test code = 5767-9) Hazy Specific [place], UA (test code = 5811-5) 1.017 1.001-1.035 pH, UA (test code = 5803-2) 6.0 5.0-8.0 Protein, UA (test code = 51643-0) 10 mg/dL Negative A Glucose, UA (test code = 365) Negative Negative Ketones, UA (test code = 2514-8) Trace Negative A Bilirubin, UA (test code = 58863-1) Negative Negative Blood, UA (test code = 36578-7) Trace Negative A Nitrite, UA (test code = 5802-4) Negative Negative Leukocytes, UA (test code = 5799-2) Negative Negative Urobilinogen, UA (test code = 72416-2) 0.2 0.2-1.0 Specimen Source (test code = 2795) LYNDSAY (test code = LYNDSAY) After School Program Assistant ID - [auto]After School Program Assistant ID - tech Lab Interpretation (test code = 14157-1) [facility] Wlxebxrsibt1086-57-22 03:58:52* Test Item Value Reference Range Interpretation Comme nts Color, UA (test code = 5778-6) Light Yellow Clarity, UA (test code = 5767-9) Hazy Specific [place], UA (test code = 5811-5) 1.017 1.001-1.035 pH, UA (test code = 5803-2) 6.0 5.0-8.0 Protein, UA (test code = 42622-7) 10 mg/dL Negative A Glucose, UA (test code = 365) Negative Negative Ketones, UA (test code = 2514-8) Trace Negative A Bilirubin, UA (test code = 16133-7) Negative Negative Blood, UA (test code = 35601-9) Trace Negative A Nitrite, UA (test code = 5802-4) Negative Negative Leukocytes, UA (test code = 5799-2) Negative Negative Urobilinogen, UA (test code = 37004-9) 0.2 0.2-1.0 Specimen Source (test code = 2795) LYNDSAY (test code = LYNDSAY) After School Program Assistant ID - [auto]After School Program Assistant ID - tech Lab Interpretation (test code = 81709-4) [facility] Eqwvpdopuvz2529-91-03 03:58:52* Test Item Value Reference Range Interpretation Comme nts Color, UA (test code = 5778-6) Light Yellow Clarity, UA (test code = 5767-9) Hazy Specific [place], UA (test code = 5811-5) 1.017 1.001-1.035 pH, UA (test code = 5803-2) 6.0 5.0-8.0 Protein, UA (test code = 66083-6) 10 mg/dL Negative A Glucose, UA (test code = 365) Negative Negative Ketones, UA (test code = 2514-8) Trace Negative A Bilirubin, UA (test code = 93243-5) Negative Negative Blood, UA (test code = 91198-3) Trace Negative A Nitrite, UA (test code = 5802-4) Negative Negative Leukocytes, UA (test code = 5799-2) Negative Negative Urobilinogen, UA (test code = 49788-8) 0.2 0.2-1.0 Specimen Source (test code = 2795) LYNDSAY (test code = LYNDSAY) After School Program Assistant ID - [auto]After School Program Assistant ID - tech Lab Interpretation (test code = 76597-5) [facility] Ccahbxpmltf7285-01-94 03:58:52* Test Item Value Reference Range Interpretation Comme nts Color, UA (test code = 5778-6) Light Yellow Clarity, UA (test code = 5767-9) Hazy Specific [place], UA (test code = 5811-5) 1.017 1.001-1.035 pH, UA (test code = 5803-2) 6.0 5.0-8.0 Protein, UA (test code = 26997-8) 10 mg/dL Negative A Glucose, UA (test code = 365) Negative Negative Ketones, UA (test code = 2514-8) Trace Negative A Bilirubin, UA (test code = 24465-1) Negative Negative Blood, UA (test code = 97288-4) Trace Negative A Nitrite, UA (test code = 5802-4) Negative Negative Leukocytes, UA (test code = 5799-2) Negative Negative Urobilinogen, UA (test code = 98416-6) 0.2 0.2-1.0 Specimen Source (test code = 2795) LYNDSAY (test code = LYNDSAY) After School Program Assistant ID - [auto]After School Program Assistant ID - tech Lab Interpretation (test code = 68814-1) [facility] Hvacntghfdf8133-81-48 03:58:52* Test Item Value Reference Range Interpretation Comme nts Color, UA (test code = 5778-6) Light Yellow Clarity, UA (test code = 5767-9) Hazy Specific [place], UA (test code = 5811-5) 1.017 1.001-1.035 pH, UA (test code = 5803-2) 6.0 5.0-8.0 Protein, UA (test code = 33163-5) 10 mg/dL Negative A Glucose, UA (test code = 365) Negative Negative Ketones, UA (test code = 2514-8) Trace Negative A Bilirubin, UA (test code = 73097-2) Negative Negative Blood, UA (test code = 31069-9) Trace Negative A Nitrite, UA (test code = 5802-4) Negative Negative Leukocytes, UA (test code = 5799-2) Negative Negative Urobilinogen, UA (test code = 71871-3) 0.2 0.2-1.0 Specimen Source (test code = 2795) LYNDSAY (test code = LYNDSAY) After School Program Assistant ID - [auto]After School Program Assistant ID - tech Lab Interpretation (test code = 21273-9) [facility] Kezalilyuaw7035-06-70 03:58:52* Test Item Value Reference Range Interpretation Comme nts Color, UA (test code = 5778-6) Light Yellow Clarity, UA (test code = 5767-9) Hazy Specific [place], UA (test code = 5811-5) 1.017 1.001-1.035 pH, UA (test code = 5803-2) 6.0 5.0-8.0 Protein, UA (test code = 04786-0) 10 mg/dL Negative A Glucose, UA (test code = 365) Negative Negative Ketones, UA (test code = 2514-8) Trace Negative A Bilirubin, UA (test code = 18338-5) Negative Negative Blood, UA (test code = 31937-0) Trace Negative A Nitrite, UA (test code = 5802-4) Negative Negative Leukocytes, UA (test code = 5799-2) Negative Negative Urobilinogen, UA (test code = 70273-1) 0.2 0.2-1.0 Specimen Source (test code = 2795) LYNDSAY (test code = LYNDSAY) After School Program Assistant ID - [auto]After School Program Assistant ID - tech Lab Interpretation (test code = 31795-2) [facility] Acftkrbqprh4412-20-60 03:58:52* Test Item Value Reference Range Interpretation Comme nts Color, UA (test code = 5778-6) Light Yellow Clarity, UA (test code = 5767-9) Hazy Specific [place], UA (test code = 5811-5) 1.017 1.001-1.035 pH, UA (test code = 5803-2) 6.0 5.0-8.0 Protein, UA (test code = 25561-0) 10 mg/dL Negative A Glucose, UA (test code = 365) Negative Negative Ketones, UA (test code = 2514-8) Trace Negative A Bilirubin, UA (test code = 56563-3) Negative Negative Blood, UA (test code = 24112-7) Trace Negative A Nitrite, UA (test code = 5802-4) Negative Negative Leukocytes, UA (test code = 5799-2) Negative Negative Urobilinogen, UA (test code = 61177-6) 0.2 0.2-1.0 Specimen Source (test code = 2795) LYNDSAY (test code = LYNDSAY) After School Program Assistant ID - [auto]After School Program Assistant ID - tech Lab Interpretation (test code = 15293-4) [facility] Fqfbuwoqxjn7405-26-30 03:58:52* Test Item Value Reference Range Interpretation Comme nts Color, UA (test code = 5778-6) Light Yellow Clarity, UA (test code = 5767-9) Hazy Specific [place], UA (test code = 5811-5) 1.017 1.001-1.035 pH, UA (test code = 5803-2) 6.0 5.0-8.0 Protein, UA (test code = 49509-8) 10 mg/dL Negative A Glucose, UA (test code = 365) Negative Negative Ketones, UA (test code = 2514-8) Trace Negative A Bilirubin, UA (test code = 62181-1) Negative Negative Blood, UA (test code = 57862-9) Trace Negative A Nitrite, UA (test code = 5802-4) Negative Negative Leukocytes, UA (test code = 5799-2) Negative Negative Urobilinogen, UA (test code = 59752-5) 0.2 0.2-1.0 Specimen Source (test code = 2795) LYNDSAY (test code = LYNDSAY) After School Program Assistant ID - [auto]After School Program Assistant ID - tech Lab Interpretation (test code = 04499-7) [facility] Halfvsqfwki9289-78-44 03:58:52* Test Item Value Reference Range Interpretation Comme nts Color, UA (test code = 5778-6) Light Yellow Clarity, UA (test code = 5767-9) Hazy Specific [place], UA (test code = 5811-5) 1.017 1.001-1.035 pH, UA (test code = 5803-2) 6.0 5.0-8.0 Protein, UA (test code = 77170-6) 10 mg/dL Negative A Glucose, UA (test code = 365) Negative Negative Ketones, UA (test code = 2514-8) Trace Negative A Bilirubin, UA (test code = 25380-8) Negative Negative Blood, UA (test code = 87272-3) Trace Negative A Nitrite, UA (test code = 5802-4) Negative Negative Leukocytes, UA (test code = 5799-2) Negative Negative Urobilinogen, UA (test code = 32072-0) 0.2 0.2-1.0 Specimen Source (test code = 2795) LYNDSAY (test code = LYNDSAY) After School Program Assistant ID - [auto]After School Program Assistant ID - tech Lab Interpretation (test code = 52851-7) [facility] Xdlxoliwcgz8737-78-59 03:58:52* Test Item Value Reference Range Interpretation Comme nts Color, UA (test code = 5778-6) Light Yellow Clarity, UA (test code = 5767-9) Hazy Specific [place], UA (test code = 5811-5) 1.017 1.001-1.035 pH, UA (test code = 5803-2) 6.0 5.0-8.0 Protein, UA (test code = 73257-5) 10 mg/dL Negative A Glucose, UA (test code = 365) Negative Negative Ketones, UA (test code = 2514-8) Trace Negative A Bilirubin, UA (test code = 91423-8) Negative Negative Blood, UA (test code = 71126-5) Trace Negative A Nitrite, UA (test code = 5802-4) Negative Negative Leukocytes, UA (test code = 5799-2) Negative Negative Urobilinogen, UA (test code = 92441-2) 0.2 0.2-1.0 Specimen Source (test code = 2795) LYNDSAY (test code = LYNDSAY) After School Program Assistant ID - [auto]After School Program Assistant ID - tech Lab Interpretation (test code = 52608-2) [facility] Lhpemybdgkv4739-83-38 03:58:52* Test Item Value Reference Range Interpretation Comme nts Color, UA (test code = 5778-6) Light Yellow Clarity, UA (test code = 5767-9) Hazy Specific [place], UA (test code = 5811-5) 1.017 1.001-1.035 pH, UA (test code = 5803-2) 6.0 5.0-8.0 Protein, UA (test code = 38326-9) 10 mg/dL Negative A Glucose, UA (test code = 365) Negative Negative Ketones, UA (test code = 2514-8) Trace Negative A Bilirubin, UA (test code = 47754-1) Negative Negative Blood, UA (test code = 46852-8) Trace Negative A Nitrite, UA (test code = 5802-4) Negative Negative Leukocytes, UA (test code = 5799-2) Negative Negative Urobilinogen, UA (test code = 28316-9) 0.2 0.2-1.0 Specimen Source (test code = 2795) LYNDSAY (test code = LYNDSAY) After School Program Assistant ID - [auto]After School Program Assistant ID - tech Lab Interpretation (test code = 47677-8) [facility] IXSUWMFIQGK6671-39-23 03:58:52* Test Item Value Reference Range Interpretation [...] 0.2 0.2-1.0 SOURCE(BEAKER) (test code = 2795) After School Program Assistant ID - [auto]After School Program Assistant ID - techCBC W/PLT COUNT & AUTO [...] 2801) 0.70 % 0.00-1.00 Rapid drug screen, btdan6978-63-46 02:20:15* Test Item Value Reference Range Interpretation Comme nts Barbiturate Screen (test code = 93583-8) Negative Negative Benzodiazepine Screen (test code = 04352-9) Negative Negative Cocaine (Metab.) Screen (test code = 3397-7) Positive Negative A Methadone Screen (test code = 77199-0) Negative Negative Opiate Screen (test code = 56993-4) Negative Negative Cannabinoid Screen (test code = 81888-5) Positive Negative A Amph/Methamph Screen (test code = 97870-7) Negative Negative Phencyclidine Screen (test code = 06647-9) Negative Negative pH, UA (test code = 5803-2) 6.0 5.0-8.0 LYNDSAY (test code = LYNDSAY) DRUG CUTOFF CONC.Cocaine 300 ng/mL Cannabinoid 50 ng/mLBenzodiazepine 200 ng/mLBarbiturate 200 ng/mLPhencyclidine 25 ng/mLOpiate 300 ng/mLMethadone 300 ng/mLAmphetamine/ 1000 ng/mL Methamphetamine This assay provides an unconfirmed qualitative test result for the clinical management of patients in emergency situations. Chain of custody not maintained. Some fhru-eqd-xbywecz medications, as well as adulterants, may cause inaccurate results. Clinical correlation should be applied. A more comprehensive drug screen or confirmation of a detected drug may be performed upon request.After School Program Assistant ID - ADMIN Lab Interpretation (test code = 13629-2) [facility], brmqi8937-95-59 02:20:15* Test Item Value Reference Range Interpretation Comme nts Barbiturate Screen (test code = 55273-8) Negative Negative Benzodiazepine Screen (test code = 97468-6) Negative Negative Cocaine (Metab.) Screen (test code = 3397-7) Positive Negative A Methadone Screen (test code = 79983-0) Negative Negative Opiate Screen (test code = 43011-3) Negative Negative Cannabinoid Screen (test code = 12018-4) Positive Negative A Amph/Methamph Screen (test code = 53984-3) Negative Negative Phencyclidine Screen (test code = 04104-7) Negative Negative pH, UA (test code = 5803-2) 6.0 5.0-8.0 LYNDSAY (test code = LYNDSAY) DRUG CUTOFF CONC.Cocaine 300 ng/mL Cannabinoid 50 ng/mLBenzodiazepine 200 ng/mLBarbiturate 200 ng/mLPhencyclidine 25 ng/mLOpiate 300 ng/mLMethadone 300 ng/mLAmphetamine/ 1000 ng/mL Methamphetamine This assay provides an unconfirmed qualitative test result for the clinical management of patients in emergency situations. Chain of custody not maintained. Some vwoz-kqc-awpnnqr medications, as well as adulterants, may cause inaccurate results. Clinical correlation should be applied. A more comprehensive drug screen or confirmation of a detected drug may be performed upon request.After School Program Assistant ID - ADMIN Lab Interpretation (test code = 83447-4) [facility]normal [facility], [id number] 02:20:15* Test Item Value Reference Range Interpretation Comme nts Barbiturate Screen (test code = 64868-3) Negative Negative Benzodiazepine Screen (test code = 82232-5) Negative Negative Cocaine (Metab.) Screen (test code = 3397-7) Positive Negative A Methadone Screen (test code = 49263-5) Negative Negative Opiate Screen (test code = 71903-2) Negative Negative Cannabinoid Screen (test code = 19474-7) Positive Negative A Amph/Methamph Screen (test code = 40829-8) Negative Negative Phencyclidine Screen (test code = 51365-2) Negative Negative pH, UA (test code = 5803-2) 6.0 5.0-8.0 LYNDSAY (test code = LYNDSAY) DRUG CUTOFF CONC.Cocaine 300 ng/mL Cannabinoid 50 ng/mLBenzodiazepine 200 ng/mLBarbiturate 200 ng/mLPhencyclidine 25 ng/mLOpiate 300 ng/mLMethadone 300 ng/mLAmphetamine/ 1000 ng/mL Methamphetamine This assay provides an unconfirmed qualitative test result for the clinical management of patients in emergency situations. Chain of custody not maintained. Some fxzo-asl-xxzylsa medications, as well as adulterants, may cause inaccurate results. Clinical correlation should be applied. A more comprehensive drug screen or confirmation of a detected drug may be performed upon request.After School Program Assistant ID - ADMIN Lab Interpretation (test code = 06367-2) [facility]normal [facility], angha4382-45-00 02:20:15* Test Item Value Reference Range Interpretation Comme nts Barbiturate Screen (test code = 56654-8) Negative Negative Benzodiazepine Screen (test code = 86440-9) Negative Negative Cocaine (Metab.) Screen (test code = 3397-7) Positive Negative A Methadone Screen (test code = 55724-2) Negative Negative Opiate Screen (test code = 43613-4) Negative Negative Cannabinoid Screen (test code = 64054-7) Positive Negative A Amph/Methamph Screen (test code = 51169-5) Negative Negative Phencyclidine Screen (test code = 63005-3) Negative Negative pH, UA (test code = 5803-2) 6.0 5.0-8.0 LYNDSAY (test code = LYNDSAY) DRUG CUTOFF CONC.Cocaine 300 ng/mL Cannabinoid 50 ng/mLBenzodiazepine 200 ng/mLBarbiturate 200 ng/mLPhencyclidine 25 ng/mLOpiate 300 ng/mLMethadone 300 ng/mLAmphetamine/ 1000 ng/mL Methamphetamine This assay provides an unconfirmed qualitative test result for the clinical management of patients in emergency situations. Chain of custody not maintained. Some fwpe-yxb-mbdxapq medications, as well as adulterants, may cause inaccurate results. Clinical correlation should be applied. A more comprehensive drug screen or confirmation of a detected drug may be performed upon request.After School Program Assistant ID - ADMIN Lab Interpretation (test code = 85254-5) [facility], [id number] 02:20:15* Test Item Value Reference Range Interpretation Comme nts Barbiturate Screen (test code = 60664-7) Negative Negative Benzodiazepine Screen (test code = 16319-9) Negative Negative Cocaine (Metab.) Screen (test code = 3397-7) Positive Negative A Methadone Screen (test code = 23761-7) Negative Negative Opiate Screen (test code = 58941-7) Negative Negative Cannabinoid Screen (test code = 41339-7) Positive Negative A Amph/Methamph Screen (test code = 56391-1) Negative Negative Phencyclidine Screen (test code = 78056-6) Negative Negative pH, UA (test code = 5803-2) 6.0 5.0-8.0 LYNDSAY (test code = LYNDSAY) DRUG CUTOFF CONC.Cocaine 300 ng/mL Cannabinoid 50 ng/mLBenzodiazepine 200 ng/mLBarbiturate 200 ng/mLPhencyclidine 25 ng/mLOpiate 300 ng/mLMethadone 300 ng/mLAmphetamine/ 1000 ng/mL Methamphetamine This assay provides an unconfirmed qualitative test result for the clinical management of patients in emergency situations. Chain of custody not maintained. Some lsou-ndw-kgacxqo medications, as well as adulterants, may cause inaccurate results. Clinical correlation should be applied. A more comprehensive drug screen or confirmation of a detected drug may be performed upon request.After School Program Assistant ID - ADMIN Lab Interpretation (test code = 90474-7) [facility], [id number] 02:20:15* Test Item Value Reference Range Interpretation Comme nts Barbiturate Screen (test code = 67525-5) Negative Negative Benzodiazepine Screen (test code = 39951-0) Negative Negative Cocaine (Metab.) Screen (test code = 3397-7) Positive Negative A Methadone Screen (test code = 52205-0) Negative Negative Opiate Screen (test code = 19130-5) Negative Negative Cannabinoid Screen (test code = 93578-5) Positive Negative A Amph/Methamph Screen (test code = 33833-4) Negative Negative Phencyclidine Screen (test code = 98171-4) Negative Negative pH, UA (test code = 5803-2) 6.0 5.0-8.0 LYNDSAY (test code = LYNDSAY) DRUG CUTOFF CONC.Cocaine 300 ng/mL Cannabinoid 50 ng/mLBenzodiazepine 200 ng/mLBarbiturate 200 ng/mLPhencyclidine 25 ng/mLOpiate 300 ng/mLMethadone 300 ng/mLAmphetamine/ 1000 ng/mL Methamphetamine This assay provides an unconfirmed qualitative test result for the clinical management of patients in emergency situations. Chain of custody not maintained. Some brys-uxp-ukstszr medications, as well as adulterants, may cause inaccurate results. Clinical correlation should be applied. A more comprehensive drug screen or confirmation of a detected drug may be performed upon request.After School Program Assistant ID - ADMIN Lab Interpretation (test code = 53099-8) [facility] [id number] 02:20:15* Test Item Value Reference Range Interpretation Comme nts Barbiturate Screen (test code = 13782-4) Negative Negative Benzodiazepine Screen (test code = 57051-4) Negative Negative Cocaine (Metab.) Screen (test code = 3397-7) Positive Negative A Methadone Screen (test code = 93963-1) Negative Negative Opiate Screen (test code = 44350-1) Negative Negative Cannabinoid Screen (test code = 79404-9) Positive Negative A Amph/Methamph Screen (test code = 92611-7) Negative Negative Phencyclidine Screen (test code = 69527-2) Negative Negative pH, UA (test code = 5803-2) 6.0 5.0-8.0 LYNDSAY (test code = LYNDSAY) DRUG CUTOFF CONC.Cocaine 300 ng/mL Cannabinoid 50 ng/mLBenzodiazepine 200 ng/mLBarbiturate 200 ng/mLPhencyclidine 25 ng/mLOpiate 300 ng/mLMethadone 300 ng/mLAmphetamine/ 1000 ng/mL Methamphetamine This assay provides an unconfirmed qualitative test result for the clinical management of patients in emergency situations. Chain of custody not maintained. Some detj-jxt-vgcxcnu medications, as well as adulterants, may cause inaccurate results. Clinical correlation should be applied. A more comprehensive drug screen or confirmation of a detected drug may be performed upon request.After School Program Assistant ID - ADMIN Lab Interpretation (test code = 09823-2) [facility], [id number] 02:20:15* Test Item Value Reference Range Interpretation Comme nts Barbiturate Screen (test code = 46316-7) Negative Negative Benzodiazepine Screen (test code = 84454-4) Negative Negative Cocaine (Metab.) Screen (test code = 3397-7) Positive Negative A Methadone Screen (test code = 55171-3) Negative Negative Opiate Screen (test code = 37612-5) Negative Negative Cannabinoid Screen (test code = 39816-5) Positive Negative A Amph/Methamph Screen (test code = 99245-1) Negative Negative Phencyclidine Screen (test code = 33777-7) Negative Negative pH, UA (test code = 5803-2) 6.0 5.0-8.0 LYNDSAY (test code = LYNDSAY) DRUG CUTOFF CONC.Cocaine 300 ng/mL Cannabinoid 50 ng/mLBenzodiazepine 200 ng/mLBarbiturate 200 ng/mLPhencyclidine 25 ng/mLOpiate 300 ng/mLMethadone 300 ng/mLAmphetamine/ 1000 ng/mL Methamphetamine This assay provides an unconfirmed qualitative test result for the clinical management of patients in emergency situations. Chain of custody not maintained. Some alrm-sbt-enfucqp medications, as well as adulterants, may cause inaccurate results. Clinical correlation should be applied. A more comprehensive drug screen or confirmation of a detected drug may be performed upon request.After School Program Assistant ID - ADMIN Lab Interpretation (test code = 64009-0) [facility], [id number] 02:20:15* Test Item Value Reference Range Interpretation Comme nts Barbiturate Screen (test code = 54930-5) Negative Negative Benzodiazepine Screen (test code = 07230-6) Negative Negative Cocaine (Metab.) Screen (test code = 3397-7) Positive Negative A Methadone Screen (test code = 19745-5) Negative Negative Opiate Screen (test code = 57429-9) Negative Negative Cannabinoid Screen (test code = 77047-4) Positive Negative A Amph/Methamph Screen (test code = 55862-4) Negative Negative Phencyclidine Screen (test code = 02380-1) Negative Negative pH, UA (test code = 5803-2) 6.0 5.0-8.0 LYNDSAY (test code = LYNDSAY) DRUG CUTOFF CONC.Cocaine 300 ng/mL Cannabinoid 50 ng/mLBenzodiazepine 200 ng/mLBarbiturate 200 ng/mLPhencyclidine 25 ng/mLOpiate 300 ng/mLMethadone 300 ng/mLAmphetamine/ 1000 ng/mL Methamphetamine This assay provides an unconfirmed qualitative test result for the clinical management of patients in emergency situations. Chain of custody not maintained. Some vwfv-sah-hnxrczl medications, as well as adulterants, may cause inaccurate results. Clinical correlation should be applied. A more comprehensive drug screen or confirmation of a detected drug may be performed upon request.After School Program Assistant ID - ADMIN Lab Interpretation (test code = 22129-5) [facility]normal [facility], [id number] 02:20:15* Test Item Value Reference Range Interpretation Comme nts Barbiturate Screen (test code = 18103-2) Negative Negative Benzodiazepine Screen (test code = 25361-9) Negative Negative Cocaine (Metab.) Screen (test code = 3397-7) Positive Negative A Methadone Screen (test code = 34648-6) Negative Negative Opiate Screen (test code = 78860-1) Negative Negative Cannabinoid Screen (test code = 14248-6) Positive Negative A Amph/Methamph Screen (test code = 35307-3) Negative Negative Phencyclidine Screen (test code = 97659-2) Negative Negative pH, UA (test code = 5803-2) 6.0 5.0-8.0 LYNDSAY (test code = LYNDSAY) DRUG CUTOFF CONC.Cocaine 300 ng/mL Cannabinoid 50 ng/mLBenzodiazepine 200 ng/mLBarbiturate 200 ng/mLPhencyclidine 25 ng/mLOpiate 300 ng/mLMethadone 300 ng/mLAmphetamine/ 1000 ng/mL Methamphetamine This assay provides an unconfirmed qualitative test result for the clinical management of patients in emergency situations. Chain of custody not maintained. Some zrzj-jil-urawouu medications, as well as adulterants, may cause inaccurate results. Clinical correlation should be applied. A more comprehensive drug screen or confirmation of a detected drug may be performed upon request.After School Program Assistant ID - ADMIN Lab Interpretation (test code = 72520-8) [facility]normal [facility], [id number] 02:20:15* Test Item Value Reference Range Interpretation Comme nts Barbiturate Screen (test code = 38673-6) Negative Negative Benzodiazepine Screen (test code = 09745-9) Negative Negative Cocaine (Metab.) Screen (test code = 3397-7) Positive Negative A Methadone Screen (test code = 23431-5) Negative Negative Opiate Screen (test code = 25234-7) Negative Negative Cannabinoid Screen (test code = 01231-1) Positive Negative A Amph/Methamph Screen (test code = 41293-3) Negative Negative Phencyclidine Screen (test code = 08586-0) Negative Negative pH, UA (test code = 5803-2) 6.0 5.0-8.0 LYNDSAY (test code = LYNDSAY) DRUG CUTOFF CONC.Cocaine 300 ng/mL Cannabinoid 50 ng/mLBenzodiazepine 200 ng/mLBarbiturate 200 ng/mLPhencyclidine 25 ng/mLOpiate 300 ng/mLMethadone 300 ng/mLAmphetamine/ 1000 ng/mL Methamphetamine This assay provides an unconfirmed qualitative test result for the clinical management of patients in emergency situations. Chain of custody not maintained. Some gpuo-dob-kigzfku medications, as well as adulterants, may cause inaccurate results. Clinical correlation should be applied. A more comprehensive drug screen or confirmation of a detected drug may be performed upon request.After School Program Assistant ID - ADMIN Lab Interpretation (test code = 36220-1) [facility]normal [facility], [id number] 02:20:15* Test Item Value Reference Range Interpretation Comme nts Barbiturate Screen (test code = 94500-8) Negative Negative Benzodiazepine Screen (test code = 88557-7) Negative Negative Cocaine (Metab.) Screen (test code = 3397-7) Positive Negative A Methadone Screen (test code = 16146-7) Negative Negative Opiate Screen (test code = 92827-2) Negative Negative Cannabinoid Screen (test code = 61043-5) Positive Negative A Amph/Methamph Screen (test code = 99657-4) Negative Negative Phencyclidine Screen (test code = 63404-9) Negative Negative pH, UA (test code = 5803-2) 6.0 5.0-8.0 LYNDSAY (test code = LYNDSAY) DRUG CUTOFF CONC.Cocaine 300 ng/mL Cannabinoid 50 ng/mLBenzodiazepine 200 ng/mLBarbiturate 200 ng/mLPhencyclidine 25 ng/mLOpiate 300 ng/mLMethadone 300 ng/mLAmphetamine/ 1000 ng/mL Methamphetamine This assay provides an unconfirmed qualitative test result for the clinical management of patients in emergency situations. Chain of custody not maintained. Some vmzg-nzr-rsjxisa medications, as well as adulterants, may cause inaccurate results. Clinical correlation should be applied. A more comprehensive drug screen or confirmation of a detected drug may be performed upon request.After School Program Assistant ID - ADMIN Lab Interpretation (test code = 71352-3) Abnormal [facility] drug screen, [id number] 02:20:15* Test Item Value Reference Range Interpretation Comme nts Barbiturate Screen (test code = 28650-3) Negative Negative Benzodiazepine Screen (test code = 27571-9) Negative Negative Cocaine (Metab.) Screen (test code = 3397-7) Positive Negative A Methadone Screen (test code = 31044-0) Negative Negative Opiate Screen (test code = 39443-7) Negative Negative Cannabinoid Screen (test code = 58542-3) Positive Negative A Amph/Methamph Screen (test code = 28379-9) Negative Negative Phencyclidine Screen (test code = 22954-6) Negative Negative pH, UA (test code = 5803-2) 6.0 5.0-8.0 LYNDSAY (test code = LYNDSAY) DRUG CUTOFF CONC.Cocaine 300 ng/mL Cannabinoid 50 ng/mLBenzodiazepine 200 ng/mLBarbiturate 200 ng/mLPhencyclidine 25 ng/mLOpiate 300 ng/mLMethadone 300 ng/mLAmphetamine/ 1000 ng/mL Methamphetamine This assay provides an unconfirmed qualitative test result for the clinical management of patients in emergency situations. Chain of custody not maintained. Some vwwu-xmd-mudrqtx medications, as well as adulterants, may cause inaccurate results. Clinical correlation should be applied. A more comprehensive drug screen or confirmation of a detected drug may be performed upon request.After School Program Assistant ID - ADMIN Lab Interpretation (test code = 07912-3) [facility], [id number] 02:20:15* Test Item Value Reference Range Interpretation [...] situations. Chain of custody not maintained. Some afop-iwj-butauzl medications, as well asadulterants, may cause inaccurate results. Clinical correlation should be applied. A more comprehensive drug screen or confirmation of a detected drug may be performed upon request.After School Program Assistant ID - ADMINB-TYPE NATRIURETIC FACTOR (BNP)2023-09-04 02:11:53* Test Item Value Reference Range Interpretation Comme nts B-TYPE NATRIURETIC PEPTIDE (BEAKER) (test code = 700) 1761 pg/mL 0-100 H After School Program Assistant ID - ADMINLACTIC ACID, [id number] 02:10:37* Test Item Value Reference Range Interpretation Comme nts LACTATE BLOOD VENOUS (2) (BEAKER) (test code = 2872) 1.04 mmol/L 0.50-2.00 Specimen slightl y hemolyzed After [employer] Program Assistant ID - [id number] 02:04:37* Test Item Value Reference Range Interpretation Comme nts PHOSPHORUS (BEAKER) (test code = 604) 4.2 mg/dL 2.3-4.7 Specimen sligh tly hemolyzed [employer] Program Assistant ID - ADMINCOMPREHENSIVE METABOLIC [id number] 02:04:37* Test Item Value Reference Range Interpretation [...] GFR is not applicable for dialysis patients After [employer] Program Assistant ID - [id number] 02:04:36* Test Item Value Reference Range Interpretation Comme nts MAGNESIUM (LATOYA) (test code = 627) 2.1 mg/dL 1.6-2.6 Specimen sligh tly hemolyzed After [employer] Program Assistant ID - [id number] 01:45:13* Test Item Value Reference Range Interpretation [...] Range Interpretation Comme nts PARTIAL THROMBOPLASTIN TIME (LINNEAAKER) (test code = 760) 28.5 seconds 22.5-36.0 PROTHROMBIN TIME/[id number] 01:42:15* Test Item Value Reference Range Interpretation Comme nts PROTIME (LATOYA) (test code = 759) 15.8 seconds 11.9-14.2 H INR (LATOYA) (test code = 370) 1.25 <=5.90 RECOMMENDED COUMADIN/WARFARIN INR THERAPY RANGESSTANDARD DOSE: 2.0 - 3.0 Includes: PROPHYLAXIS for venous thrombosis, systemic embolization; TREATMENT for venous thrombosis and/or pulmonary embolus.HIGH RISK: Target INR is 2.5-3.5 for patients with mechanical heart valves.Lactic Acid Whole [id number] 20:51:22* Test Item Value Reference Range Interpretation Comme nts LACTIC ACID (test code = 8235473880) 1.56 mmol/L 0.50-2.20 Lab Interpretation (test cod e = 23097-0) [id number]:00:09* Test Item Value Reference Range Interpretation Comme nts CULTURE (BEAKER) (test code = 1095) No growth in 5 days BLOOD [id number] 07:00:09* Test Item Value Reference Range Interpretation Comme nts CULTURE (BEAKER) (test code = 1095) No growth in 5 days T-SPOT(R).[id number] 18:35:00* Test Item Value Reference Range Interpretation Comme nts T-SPOT.TB (test code = 1149152) Negative SeeBelow Normal Value: Ne gativeA negative [...] CORRECTED FOR NEG CONTROL (test code = 5077908) 1 PANEL B SPOT COUNT CORRECTED FOR NEG CONTROL (test code = 2651828) 0 NEGATIVE CONTROL (test code = 0186405) Passed POSITIVE CONTROL (test code = 5200503) Passed LYNDSAY (test code = LYNDSAY) [id number] [facility][id number] 18:35:00* Test Item Value Reference Range Interpretation Comme nts T-SPOT.TB (test code = 3638966) Negative SeeBelow Normal Value: Ne gativeA negative [...] CORRECTED FOR NEG CONTROL (test code = 9301678) 1 PANEL B SPOT COUNT CORRECTED FOR NEG CONTROL (test code = 1189656) 0 NEGATIVE CONTROL (test code = 5634679) Passed POSITIVE CONTROL (test code = 3369059) Passed LYNDSAY (test code = LYNSDAY) [id number] [facility][id number] 18:35:00* Test Item Value Reference Range Interpretation Comme nts T-SPOT.TB (test code = 7997234) Negative SeeBelow Normal Value: Ne gativeA negative [...] CORRECTED FOR NEG CONTROL (test code = 3304585) 1 PANEL B SPOT COUNT CORRECTED FOR NEG CONTROL (test code = 9264623) 0 NEGATIVE CONTROL (test code = 8144782) Passed POSITIVE CONTROL (test code = 1104826) Passed LYNDSAY (test code = LYNDSAY) [id number] [facility][id number] 18:35:00* Test Item Value Reference Range Interpretation [...] 20150905) 0 NEGATIVE CONTROL (test code = 2987312) Passed POSITIVE CONTROL (test code = 3210983) Passed LYNDSAY (test code = LYNDSAY) [id number] [facility][id number] 18:35:00* Test Item Value Reference Range Interpretation Comme nts T-SPOT.TB (test code = 9879245) Negative SeeBelow Normal Value: Ne gativeA negative [...] 20150905) 0 NEGATIVE CONTROL (test code = 7671926) Passed POSITIVE CONTROL (test code = 1973383) Passed LYNDSAY (test code = LYNDSAY) [id number] [facility][id number] 18:35:00* Test Item Value Reference Range Interpretation [...] 20150905) 0 NEGATIVE CONTROL (test code = 9425174) Passed POSITIVE CONTROL (test code = 5257443) Passed LYNDSAY (test code = LYNDSAY) [id number] [facility][id number] 18:35:00* Test Item Value Reference Range Interpretation [...] 20150907) Passed LYNDSAY (test code = LYNDSAY) [id number] [facility][id number] 18:35:00* Test Item Value Reference Range Interpretation Comme nts T-SPOT.TB (test code = 6777879) Negative SeeBelow Normal Value: Ne gativeA negative [...] CORRECTED FOR NEG CONTROL (test code = 8601710) 0 NEGATIVE CONTROL (test code = 8777898) Passed POSITIVE CONTROL (test code = 6273146) Passed LYNDSAY (test code = LYNDSAY) [id number] [facility][id number] 18:35:00* Test Item Value Reference Range Interpretation Comme nts T-SPOT.TB (test code = 5785769) Negative SeeBelow Normal Value: Ne gativeA negative [...] CORRECTED FOR NEG CONTROL (test code = 7032262) 1 PANEL B SPOT COUNT CORRECTED FOR NEG CONTROL (test code = 1288254) 0 NEGATIVE CONTROL (test code = 20150906) Passed POSITIVE CONTROL (test code = 6557956) Passed LYNDSAY (test code = LYNDSAY) [id number] [facility][id number] 18:35:00* Test Item Value Reference Range Interpretation Comme nts T-SPOT.TB (test code = 5333234) Negative SeeBelow Normal Value: Ne gativeA negative [...] CORRECTED FOR NEG CONTROL (test code = 4688316) 1 PANEL B SPOT COUNT CORRECTED FOR NEG CONTROL (test code = 4019013) 0 NEGATIVE CONTROL (test code = 5478905) Passed POSITIVE CONTROL (test code = 0926231) Passed LYNDSAY (test code = LYNDSAY) [id number] [facility][id number] 18:35:00* Test Item Value Reference Range Interpretation [...] CORRECTED FOR NEG CONTROL (test code = 5373775) 0 NEGATIVE CONTROL (test code = 8033774) Passed POSITIVE CONTROL (test code = 2744117) Passed LYNDSAY (test code = LYNDSAY) [id number] [facility][id number] 18:35:00* Test Item Value Reference Range Interpretation [...] 20150905) 0 NEGATIVE CONTROL (test code = 7387256) Passed POSITIVE CONTROL (test code = 20150907) Passed LYNDSAY (test code = LYNDSAY) [id number] [facility][id number] 18:35:00* Test Item Value Reference Range Interpretation [...] CORRECTED FOR NEG CONTROL (test code = 6074920) 0 NEGATIVE CONTROL (test code = 3081492) Passed POSITIVE CONTROL (test code = 3001209) Passed LYNDSAY (test code = LYNDSAY) [id number] [facility][id number] 18:35:00* Test Item Value Reference Range Interpretation Comme [facility] T-SPOT.TB (test code = 4741831) Negative SeeBelow Normal Value: Ne gativeA negative [...] CORRECTED FOR NEG CONTROL (test code = 8154714) 1 PANEL B SPOT COUNT CORRECTED FOR NEG CONTROL (test code = 5553635) 0 NEGATIVE CONTROL (test code = 1829937) Passed POSITIVE CONTROL (test code = 3536913) Passed LYNDSAY (test code = LYNDSAY) [id number] [facility][id number] 18:35:00* Test Item Value Reference Range Interpretation Comme [facility] T-SPOT.TB (test code = 49818-6) Negative SeeBelow Normal Value: Ne gativeA negative [...] CORRECTED FOR NEG CONTROL (test code = 82941-5) 0 NEGATIVE CONTROL (test code = 03227-6) Passed POSITIVE CONTROL (test code = 21704-2) Passed LYNDSAY (test code = LYNDSAY) [id number] [facility][id number] 18:35:00* Test Item Value Reference Range Interpretation Comme nts T-SPOT.TB (test code = 35150-9) Negative SeeBelow Normal Value: Ne gativeA negative [...] CORRECTED FOR NEG CONTROL (test code = 43145-2) 0 NEGATIVE CONTROL (test code = 62948-7) Passed POSITIVE CONTROL (test code = 99364-8) Passed LYNDSAY (test code = LYNDSAY) [id number] [facility][id number] 18:35:00* Test Item Value Reference Range Interpretation Comme nts T-SPOT.TB (test code = 69947-4) Negative SeeBelow Normal Value: Ne gativeA negative [...] CORRECTED FOR NEG CONTROL (test code = 71913-1) 0 NEGATIVE CONTROL (test code = 03550-0) Passed POSITIVE CONTROL (test code = 22311-2) Passed LYNDSAY (test code = LYNDSAY) [id number] [facility][id number] 18:35:00* Test Item Value Reference Range Interpretation Comme nts T-SPOT.TB (test code = 30565-0) Negative SeeBelow Normal Value: Ne gativeA negative [...] CORRECTED FOR NEG CONTROL (test code = 98836-5) 0 NEGATIVE CONTROL (test code = 55971-7) Passed POSITIVE CONTROL (test code = 80203-1) Passed LYNDSAY (test code = LYNDSAY) [id number] [facility][id number] 18:35:00* Test Item Value Reference Range Interpretation Comme nts T-SPOT.TB (test code = 54044-9) Negative SeeBelow Normal Value: Ne gativeA negative [...] CORRECTED FOR NEG CONTROL (test code = 52717-2) 0 NEGATIVE CONTROL (test code = 64392-4) Passed POSITIVE CONTROL (test code = 74922-1) Passed LYNDSAY (test code = LYNDSAY) [id number] [facility][id number] 18:35:00* Test Item Value Reference Range Interpretation Comme nts T-SPOT.TB (test code = 59194-8) Negative SeeBelow Normal Value: Ne gativeA negative [...] CORRECTED FOR NEG CONTROL (test code = 84712-9) 0 NEGATIVE CONTROL (test code = 90326-4) Passed POSITIVE CONTROL (test code = 85923-6) Passed LYNDSAY (test code = LYNDSAY) [id number] [facility][id number] 18:35:00* Test Item Value Reference Range Interpretation Comme nts T-SPOT.TB (test code = 19791-4) Negative SeeBelow Normal Value: Ne gativeA negative [...] CORRECTED FOR NEG CONTROL (test code = 66900-6) 0 NEGATIVE CONTROL (test code = 24036-3) Passed POSITIVE CONTROL (test code = 42893-2) Passed LYNDSAY (test code = LYNDSAY) [id number] [facility][id number] 18:35:00* Test Item Value Reference Range Interpretation Comme nts T-SPOT.TB (test code = 76756-2) Negative SeeBelow Normal Value: Ne gativeA negative [...] CORRECTED FOR NEG CONTROL (test code = 12274-2) 0 NEGATIVE CONTROL (test code = 83839-7) Passed POSITIVE CONTROL (test code = 67956-7) Passed LYNDSAY (test code = LYNDSAY) [id number] [facility][id number] 18:35:00* Test Item Value Reference Range Interpretation Comme nts T-SPOT.TB (test code = 59642-0) Negative SeeBelow Normal Value: Ne gativeA negative [...] CORRECTED FOR NEG CONTROL (test code = 64066-1) 0 NEGATIVE CONTROL (test code = 21092-0) Passed POSITIVE CONTROL (test code = 55491-7) Passed LYNDSAY (test code = LYNDSAY) [id number] [facility][id number] 18:35:00* Test Item Value Reference Range Interpretation Comme nts T-SPOT.TB (test code = 66697-8) Negative SeeBelow Normal Value: Ne gativeA negative [...] CORRECTED FOR NEG CONTROL (test code = 74230-1) 0 NEGATIVE CONTROL (test code = 47347-7) Passed POSITIVE CONTROL (test code = 10610-1) Passed LYNDSAY (test code = LYNDSAY) [id number] [id number] [facility]:35:00* Test Item Value Reference Range Interpretation Comme nts T-SPOT.TB (test code = 53295-6) Negative SeeBelow Normal Value: Ne gativeA negative [...] CORRECTED FOR NEG CONTROL (test code = 80520-2) 0 NEGATIVE CONTROL (test code = 84888-4) Passed POSITIVE CONTROL (test code = 64258-3) Passed LYNDSAY (test code = LYNDSAY) [id number] [facility][id number] 18:35:00* Test Item Value Reference Range Interpretation Comme nts T-SPOT.TB (test code = 25471-3) Negative SeeBelow Normal Value: Ne gativeA negative [...] CORRECTED FOR NEG CONTROL (test code = 12677-0) 0 NEGATIVE CONTROL (test code = 01907-0) Passed POSITIVE CONTROL (test code = 82909-7) Passed LYNDSAY (test code = LYNDSAY) [id number] [facility][id number] 18:35:00* Test Item Value Reference Range Interpretation Comme nts T-SPOT.TB (test code = 17566-2) Negative SeeBelow Normal Value: Ne gativeA negative [...] CORRECTED FOR NEG CONTROL (test code = 29808-0) 0 NEGATIVE CONTROL (test code = 32460-3) Passed POSITIVE CONTROL (test code = 08201-5) Passed LYNDSAY (test code = LYNDSAY) [id number] [facility][id number] 18:35:00* Test Item Value Reference Range Interpretation Comme nts T-SPOT.TB (test code = 83541-2) Negative SeeBelow Normal Value: Ne gativeA negative [...] CORRECTED FOR NEG CONTROL (test code = 34197-3) 0 NEGATIVE CONTROL (test code = 66192-0) Passed POSITIVE CONTROL (test code = 64179-4) Passed LYNDSAY (test code = LYNDSAY) [id number] [facility][id number] 18:35:00* Test Item Value Reference Range Interpretation Comme [facility] T-SPOT.TB (test code = 83834-1) Negative SeeBelow Normal Value: Ne gativeA negative [...] CORRECTED FOR NEG CONTROL (test code = 12088-5) 0 NEGATIVE CONTROL (test code = 20171-4) Passed POSITIVE CONTROL (test code = 45498-3) Passed LYNDSAY (test code = LYNDSAY) [id number] [facility][id number] 18:35:00* Test Item Value Reference Range Interpretation Comme nts T-SPOT.TB (test code = 62708-3) Negative SeeBelow Normal Value: Ne gativeA negative [...] CORRECTED FOR NEG CONTROL (test code = 89039-0) 0 NEGATIVE CONTROL (test code = 10780-5) Passed POSITIVE CONTROL (test code = 63162-1) Passed LYNDSAY (test code = LYNDSAY) [id number] [facility][id number] 18:35:00* Test Item Value Reference Range Interpretation Comme nts T-SPOT.TB (test code = 24218-6) Negative SeeBelow Normal Value: Ne gativeA negative [...] CORRECTED FOR NEG CONTROL (test code = 58019-1) 0 NEGATIVE CONTROL (test code = 81037-6) Passed POSITIVE CONTROL (test code = 52387-9) Passed LYNDSAY (test code = LYNDSAY) [id number] [facility][id number] 18:35:00* Test Item Value Reference Range Interpretation Comme nts T-SPOT.TB (test code = 00455-6) Negative SeeBelow Normal Value: Ne gativeA negative [...] CORRECTED FOR NEG CONTROL (test code = 82032-4) 0 NEGATIVE CONTROL (test code = 23261-9) Passed POSITIVE CONTROL (test code = 18212-4) Passed LYNDSAY (test code = LYNDSAY) [id number] [facility][id number] 18:35:00* Test Item Value Reference Range Interpretation Comme nts T-SPOT.TB (test code = 28974-7) Negative SeeBelow Normal Value: Ne gativeA negative [...] CORRECTED FOR NEG CONTROL (test code = 50687-5) 0 NEGATIVE CONTROL (test code = 37815-3) Passed POSITIVE CONTROL (test code = 55801-7) Passed LYNDSAY (test code = LYNDSAY) [id number] [facility][id number] 18:35:00* Test Item Value Reference Range Interpretation Comme nts T-SPOT.TB (test code = 1051853) Negative SeeBelow Normal Value: Ne gativeA negative [...] CORRECTED FOR NEG CONTROL (test code = 5638613) 1 PANEL B SPOT COUNT CORRECTED FOR NEG CONTROL (test code = 5340739) 0 NEGATIVE CONTROL (test code = 4319469) Passed POSITIVE CONTROL (test code = 7281382) Passed LYNDSAY (test code = LYNDSAY) [id number] [facility][id number] 18:35:00* Test Item Value Reference Range Interpretation Comme nts T-SPOT.TB (test code = 9029574) Negative SeeBelow Normal Value: Ne gativeA negative [...] CORRECTED FOR NEG CONTROL (test code = 8711541) 1 PANEL B SPOT COUNT CORRECTED FOR NEG CONTROL (test code = 8758713) 0 NEGATIVE CONTROL (test code = 4864218) Passed POSITIVE CONTROL (test code = 6064740) Passed LYNDSAY (test code = LYNDSAY) [id number] [facility][id number] 18:35:00* Test Item Value Reference Range Interpretation Comme nts T-SPOT.TB (test code = 7412583) Negative SeeBelow Normal Value: Ne gativeA negative [...] CORRECTED FOR NEG CONTROL (test code = 2754341) 1 PANEL B SPOT COUNT CORRECTED FOR NEG CONTROL (test code = 1409228) 0 NEGATIVE CONTROL (test code = 7275739) Passed POSITIVE CONTROL (test code = 20150907) Passed LYNDSAY (test code = LYNDSAY) [id number] [facility] jrgw0884-88-32 13:41:18 Transesophageal Echocardiography Report (CHETAN) Demographics Patient Name YUE LAWS Date of Study 06/16/2023 ESTELLE Gender Female Visit Number [id number] Race Room Number 1055 Number Date of 1970 Referring Physician Age 53 year(s) Commercial Appraiser Interpreting Physician Brian MDProcedure Type of Study [...] valve.Tricuspid Valve Partially visualized. Pulmonic Valve Not visualized.[facility] lqdxgb4367-95-25 09:55:41* Test Item Value Reference Range Interpretation Comme nts Result (test code = 6463-4) No MRSA isolated [facility] zscvgx2473-60-40 09:55:41* Test Item Value Reference Range Interpretation Comme nts Result (test code = 6463-4) No MRSA isolated [facility]2023-11-28 09:55:41* Test Item Value Reference Range Interpretation Comme nts Result (test code = 6463-4) No MRSA isolated [facility] bpgkam7498-56-83 09:55:41* Test Item Value Reference Range Interpretation Comme nts Result (test code = 6463-4) No MRSA isolated [facility] gmipyv4690-63-21 09:55:41* Test Item Value Reference Range Interpretation Comme nts Result (test code = 6463-4) No MRSA isolated [facility] eewust1225-06-42 09:55:41* Test Item Value Reference Range Interpretation Comme nts Result (test code = 6463-4) No MRSA isolated [facility] smghyf9689-44-41 09:55:41* Test Item Value Reference Range Interpretation Comme nts Result (test code = 6463-4) No MRSA isolated [facility] cpapbu5207-29-16 09:55:41* Test Item Value Reference Range Interpretation Comme nts Result (test code = 6463-4) No MRSA isolated [facility] sisvao2001-01-08 09:55:41* Test Item Value Reference Range Interpretation Comme nts Result (test code = 6463-4) No MRSA isolated [facility] tbjmxr8676-21-36 09:55:41* Test Item Value Reference Range Interpretation Comme nts Result (test code = 6463-4) No MRSA isolated [facility] mwwewr9108-31-57 09:55:41* Test Item Value Reference Range Interpretation Comme nts Result (test code = 6463-4) No MRSA isolated [facility] cyzpko4874-46-64 09:55:41* Test Item Value Reference Range Interpretation Comme nts Result (test code = 6463-4) No MRSA isolated [facility] ucjhrm5223-19-57 09:55:41* Test Item Value Reference Range Interpretation Comme nts Result (test code = 6463-4) No MRSA isolated [facility] sgstig6356-69-80 09:55:41* Test Item Value Reference Range Interpretation Comme nts Result (test code = 6463-4) No MRSA isolated [facility] baokbe4329-28-04 09:55:41* Test Item Value Reference Range Interpretation Comme nts Result (test code = 6463-4) No MRSA isolated [facility] ykvqaw9088-75-42 09:55:41* Test Item Value Reference Range Interpretation Comme nts Result (test code = 6463-4) No MRSA isolated [facility] lielnh3081-66-09 09:55:41* Test Item Value Reference Range Interpretation Comme nts Result (test code = 6463-4) No MRSA isolated [facility] myetgc9476-15-67 09:55:41* Test Item Value Reference Range Interpretation Comme nts Result (test code = 6463-4) No MRSA isolated [facility] eohgqm3809-66-82 09:55:41* Test Item Value Reference Range Interpretation Comme nts Result (test code = 6463-4) No MRSA isolated [facility] qedbjh7263-29-38 09:55:41* Test Item Value Reference Range Interpretation Comme nts Result (test code = 6463-4) No MRSA isolated [facility] akzxyz1222-26-83 09:55:41* Test Item Value Reference Range Interpretation Comme nts Result (test code = 6463-4) No MRSA isolated [facility] bdrbvm4645-19-55 09:55:41* Test Item Value Reference Range Interpretation Comme nts Result (test code = 6463-4) No MRSA isolated [facility] loeozs4651-40-70 09:55:41* Test Item Value Reference Range Interpretation Comme nts Result (test code = 6463-4) No MRSA isolated [facility] fhxwiz8367-02-08 09:55:41* Test Item Value Reference Range Interpretation Comme nts Result (test code = 6463-4) No MRSA isolated [facility] ekzoew5820-66-13 09:55:41* Test Item Value Reference Range Interpretation Comme nts Result (test code = 6463-4) No MRSA isolated [facility] xwlfdw1227-19-88 09:55:41* Test Item Value Reference Range Interpretation Comme nts Result (test code = 6463-4) No MRSA isolated [facility] pfxprh0133-28-16 09:55:41* Test Item Value Reference Range Interpretation Comme nts Result (test code = 6463-4) No MRSA isolated [facility] icthix7743-56-54 09:55:41* Test Item Value Reference Range Interpretation Comme nts Result (test code = 6463-4) No MRSA isolated [facility] ukczgy3654-05-30 09:55:41* Test Item Value Reference Range Interpretation Comme nts Result (test code = 6463-4) No MRSA isolated [facility] yobprh2793-96-49 09:55:41* Test Item Value Reference Range Interpretation Comme nts Result (test code = 6463-4) No MRSA isolated [facility] wwvmgt0897-38-11 09:55:41* Test Item Value Reference Range Interpretation Comme nts Result (test code = 6463-4) No MRSA isolated [facility] rbafzm1396-69-77 09:55:41* Test Item Value Reference Range Interpretation Comme nts Result (test code = 6463-4) No MRSA isolated [facility] wmigdf4584-84-03 09:55:41* Test Item Value Reference Range Interpretation Comme nts Result (test code = 6463-4) [facility] olfsdm9343-37-34 09:55:41* Test Item Value Reference Range Interpretation Comme nts Result (test code = 6463-4) No [facility] kjgqmd9053-33-69 09:55:41* Test Item Value Reference Range Interpretation Comme nts Result (test code = 6463-4) No [facility] vonfuo2810-03-42 09:55:41* Test Item Value Reference Range Interpretation Comme nts Result (test code = 6463-4) No [facility] JJMPLC8826-25-27 09:55:41* Test Item Value Reference Range Interpretation Comme nts CULTURE (BEAKER) (test code = 1095) No MRSA isolated CRYPTOCOCCAL EOGDZCI8642-73-06 15:50:36* Test Item Value Reference Range Interpretation Comme nts CRYPTOCOCCAL ANTIGEN, SERUM (BEAKER) (test code = 1828) Negative Negative, Interference SPUTUM CULTURE + GRAM HZIJE3140-27-71 10:30:11* Test Item Value Reference Range Interpretation [...] GRAM STAIN RESULT (BEAKER) (test code = 037446) 10-15 epithelial cells GRAM STAIN RESULT (BEAKER) (test code = 547777) 2+ gram positive cocci in chains and pairs GRAM STAIN RESULT (BEAKER) (test code = 900218) 1+ gram negative rods GRAM STAIN RESULT (BEAKER) (test code = 367535) 1+ yeast 2+ Normal respiratory rebel presentVANCOMYCIN LEVEL, [id number] 06:41:26* Test Item Value Reference Range Interpretation Comme nts VANCOMYCIN TROUGH (LATOYA) ( test code = 522) 17.0 ug/mL 10.0-20.0 [employer] Program Assistant ID - ADMINECHO W CONTRAST & [id number] 13:44:03Transthoracic Echocardiography Report (TTE) Demographics Patient Name YUE LAWS Date of Study 06/14/2023 ESTELLE Gender Female Visit Number [id number] Race Room Number 1055 Number Date of 1970 Referring Aydee Go MD Physician Age 53 year(s) Commercial Appraiser James Albarran AISHWARYA Interpreting Mauricio Bonilla, Physician MDProcedure Type ofStudy [...] Velocity: 0.85 m/s Peak Gradient: 2.89 mmHgCHI Sharp [facility] HospitalHEMOGLOBIN A1C 2023-06-14 09:26:42* Test Item Value [...] 5.7- 6.4% indicates increased risk for diabetes (prediabetes)."[employer] Program Assistant ID - ADMOperator ID - ADMECG 12 [id number] 09:06:12Ventricular Rate 97 BPMAtrial Rate 97 BPMP-R Interval 146 msQRS Duration 96 msQ-T Interval 378 msQTC Calculation(Bazett) 480 msP Douglas 68 degreesR Douglas 107 degreesT Douglas 18 degrees Suspect arm leadreversal, interpretation assumes no reversalNormal sinus rhythmRightward axisNonspecific T wave abnormalityAbnormal ECGWhen compared with ECG of 30-MAR-2023 13:06,QRS axis Shifted rightConfirmed by Luis Lopez ([id number]) on 06/14/2023 9:06:07 [facility] oemk2705-11-98 09:06:12Ventricular Rate 97 BPMAtrial Rate 97 BPMP-R Interval 146 msQRS Duration 96 msQ-T Interval 378 msQTC Calculation(Bazett) 480 msP Douglas 68 degreesR Douglas 107 degreesT Douglas 18 degrees Suspect arm leadreversal, interpretation assumes no reversalNormal sinus rhythmRightward axisNonspecific T wave abno rmalityAbnormal ECGWhen compared with ECG of 30-MAR-2023 13:06,QRS axis Shifted rightConfirmed by Luis Lopez ([id number]) on 06/14/2023 9:06:07 [facility] HospitalBASIC METABOLIC [id number] 04:48:18* Test Item Value Reference Range Interpretation [...] GFR is not applicable for dialysis patients [employer] Program Assistant ID - ADMINCBC (HEMOGRAM ONLY)2023-06-14 04:22:50* Test [...] 413) 0 /100 WBC 0-0 Strep pneumoniae jflmyvm5605-09-11 23:34:41* Test Item Value Reference Range Interpretation Comme nts Strep pneumoniae Antigen (test code = 41290-4) Presumptive negative for pneumococcal pneumonia - see [...] the test. Lab Interpretation (test code = 03382-5) [facility] kmqjyam1252-55-00 23:34:41* Test Item Value Reference Range Interpretation Comme nts Strep pneumoniae Antigen (test code = 54501-0) Presumptive negative for pneumococcal pneumonia - see [...] the test. Lab Interpretation (test code = 81116-4) [facility] pcrmupe1487-41-62 23:34:41* Test Item Value Reference Range Interpretation Comme nts Strep pneumoniae Antigen (test code = 34869-2) Presumptive negative for pneumococcal pneumonia - see [...] the test. Lab Interpretation (test code = 65715-8) [facility] nhgjhwv2894-52-16 23:34:41* Test Item Value Reference Range Interpretation Comme nts Strep pneumoniae Antigen (test code = 63707-0) Presumptive negative for pneumococcal pneumonia - see [...] the test. Lab Interpretation (test code = 58285-9) [facility] hbkupcv8929-89-70 23:34:41* Test Item Value Reference Range Interpretation Comme nts Strep pneumoniae Antigen (test code = 38138-9) Presumptive negative for pneumococcal pneumonia - see [...] the test. Lab Interpretation (test code = 51252-0) [facility] ofwmcvv9796-26-50 23:34:41* Test Item Value Reference Range Interpretation Comme nts Strep pneumoniae Antigen (test code = 87085-4) Presumptive negative for pneumococcal pneumonia - see [...] the test. Lab Interpretation (test code = 64994-9) [facility] noempyf8388-88-71 23:34:41* Test Item Value Reference Range Interpretation Comme nts Strep pneumoniae Antigen (test code = 94336-3) Presumptive negative for pneumococcal pneumonia - see [...] the test. Lab Interpretation (test code = 28101-2) [facility] qhnvrba9365-00-96 23:34:41* Test Item Value Reference Range Interpretation Comme nts Strep pneumoniae Antigen (test code = 43331-1) Presumptive negative for pneumococcal pneumonia - see [...] the test. Lab Interpretation (test code = 28437-4) [facility] lbxqrtm0563-22-83 23:34:41* Test Item Value Reference Range Interpretation Comme nts Strep pneumoniae Antigen (test code = 58551-7) Presumptive negative for pneumococcal pneumonia - see [...] the test. Lab Interpretation (test code = 26073-0) [facility] emluncc7348-26-69 23:34:41* Test Item Value Reference Range Interpretation Comme nts Strep pneumoniae Antigen (test code = 28670-3) Presumptive negative for pneumococcal pneumonia - see [...] the test. Lab Interpretation (test code = 93400-3) [facility] zasxlye6202-35-59 23:34:41* Test Item Value Reference Range Interpretation Comme nts Strep pneumoniae Antigen (test code = 52669-5) Presumptive negative for pneumococcal pneumonia - see [...] the test. Lab Interpretation (test code = 26246-6) [facility] ailnlae7271-44-44 23:34:41* Test Item Value Reference Range Interpretation Comme nts Strep pneumoniae Antigen (test code = 47569-8) Presumptive negative for pneumococcal pneumonia - see [...] the test. Lab Interpretation (test code = 31758-3) [facility] cyfyzly5775-54-22 23:34:41* Test Item Value Reference Range Interpretation Comme nts Strep pneumoniae Antigen (test code = 35290-2) Presumptive negative for pneumococcal pneumonia - see [...] the test. Lab Interpretation (test code = 79864-8) [facility] orkotwl6787-23-29 23:34:41* Test Item Value Reference Range Interpretation Comme nts Strep pneumoniae Antigen (test code = 28083-4) Presumptive negative for pneumococcal pneumonia - see [...] the test. Lab Interpretation (test code = 39234-2) [facility] fhtmxxw1441-71-77 23:34:41* Test Item Value Reference Range Interpretation Comme nts Strep pneumoniae Antigen (test code = 05736-8) Presumptive negative for pneumococcal pneumonia - see [...] the test. Lab Interpretation (test code = 04024-8) [facility] mbcifkh6493-61-71 23:34:41* Test Item Value Reference Range Interpretation Comme nts Strep pneumoniae Antigen (test code = 80498-9) Presumptive negative for pneumococcal pneumonia - see [...] the test. Lab Interpretation (test code = 25461-3) [facility] eunkrha9169-59-60 23:34:41* Test Item Value Reference Range Interpretation Comme nts Strep pneumoniae Antigen (test code = 52493-9) Presumptive negative for pneumococcal pneumonia - see [...] the test. Lab Interpretation (test code = 82118-3) [facility] tlhnscr9876-98-49 23:34:41* Test Item Value Reference Range Interpretation Comme nts Strep pneumoniae Antigen (test code = 30125-7) Presumptive negative for pneumococcal pneumonia - see [...] the test. Lab Interpretation (test code = 85737-0) [facility] ygrhrln8534-80-61 23:34:41* Test Item Value Reference Range Interpretation Comme nts Strep pneumoniae Antigen (test code = 87888-0) Presumptive negative for pneumococcal pneumonia - see [...] the test. Lab Interpretation (test code = 63690-7) [facility] oglmiwj5289-90-58 23:34:41* Test Item Value Reference Range Interpretation Comme nts Strep pneumoniae Antigen (test code = 80601-5) Presumptive negative for pneumococcal pneumonia - see [...] the test. Lab Interpretation (test code = 94102-8) [facility] irqsuhf1767-69-10 23:34:41* Test Item Value Reference Range Interpretation Comme nts Strep pneumoniae Antigen (test code = 85706-5) Presumptive negative for pneumococcal pneumonia - see [...] the test. Lab Interpretation (test code = 23883-9) [facility] ogghosp1963-71-12 23:34:41* Test Item Value Reference Range Interpretation Comme nts Strep pneumoniae Antigen (test code = 86880-1) Presumptive negative for pneumococcal pneumonia - see [...] the test. Lab Interpretation (test code = 53288-4) [facility] sqtjudr9051-61-88 23:34:41* Test Item Value Reference Range Interpretation Comme nts Strep pneumoniae Antigen (test code = 48054-2) Presumptive negative for pneumococcal pneumonia - see [...] the test. Lab Interpretation (test code = 04440-0) [facility] zslbzcm0238-52-70 23:34:41* Test Item Value Reference Range Interpretation Comme nts Strep pneumoniae Antigen (test code = 97955-4) Presumptive negative for pneumococcal pneumonia - see [...] the test. Lab Interpretation (test code = 05102-6) [facility] vffjteu1349-99-15 23:34:41* Test Item Value Reference Range Interpretation Comme nts Strep pneumoniae Antigen (test code = 28428-8) Presumptive negative for pneumococcal pneumonia - see [...] the test. Lab Interpretation (test code = 92457-0) [facility] bxjqnsb0696-11-25 23:34:41* Test Item Value Reference Range Interpretation Comme nts Strep pneumoniae Antigen (test code = 87786-6) Presumptive negative for pneumococcal pneumonia - see [...] the test. Lab Interpretation (test code = 82963-2) [facility] potcqev7332-14-01 23:34:41* Test Item Value Reference Range Interpretation Comme nts Strep pneumoniae Antigen (test code = 63373-6) Presumptive negative for pneumococcal pneumonia - see [...] the test. Lab Interpretation (test code = 67655-6) [facility] akciepc8722-91-21 23:34:41* Test Item Value Reference Range Interpretation Comme nts Strep pneumoniae Antigen (test code = 77856-9) Presumptive negative for pneumococcal pneumonia - see [...] the test. Lab Interpretation (test code = 79993-9) [facility] qvrzpjd2534-72-66 23:34:41* Test Item Value Reference Range Interpretation Comme nts Strep pneumoniae Antigen (test code = 51761-1) Presumptive negative for pneumococcal pneumonia - see [...] the test. Lab Interpretation (test code = 07919-7) [facility] omehvvd9979-90-23 23:34:41* Test Item Value Reference Range Interpretation Comme nts Strep pneumoniae Antigen (test code = 15860-9) Presumptive negative for pneumococcal pneumonia - see [...] the test. Lab Interpretation (test code = 79980-9) [facility] iwhycjv6008-54-11 23:34:41* Test Item Value Reference Range Interpretation Comme nts Strep pneumoniae Antigen (test code = 17797-7) Presumptive negative for pneumococcal pneumonia - see [...] the test. Lab Interpretation (test code = 50514-4) [facility] jagkzeh9749-36-37 23:34:41* Test Item Value Reference Range Interpretation Comme nts Strep pneumoniae Antigen (test code = 23402-2) Presumptive negative for pneumococcal pneumonia - see [...] the test. Lab Interpretation (test code = 46390-2) [facility] bfivmhl1174-51-12 23:34:41* Test Item Value Reference Range Interpretation Comme nts Strep pneumoniae Antigen (test code = 61279-1) Presumptive negative for pneumococcal pneumonia - see [...] the test. Lab Interpretation (test code = 15353-8) [facility] bfobsov8483-91-31 23:34:41* Test Item Value Reference Range Interpretation Comme nts Strep pneumoniae Antigen (test code = 30147-6) Presumptive negative for pneumococcal pneumonia - see [...] the test. Lab Interpretation (test code = 20056-8) [facility] yiurtdt3174-55-16 23:34:41* Test Item Value Reference Range Interpretation Comme nts Strep pneumoniae Antigen (test code = 90112-0) Presumptive negative for pneumococcal pneumonia - see [...] the test. Lab Interpretation (test code = 51609-5) [facility] wroeaue6578-04-51 23:34:41* Test Item Value Reference Range Interpretation Comme nts Strep pneumoniae Antigen (test code = 91584-5) Presumptive negative for pneumococcal pneumonia - see [...] the test. Lab Interpretation (test code = 93921-6) [facility] [id number] 23:34:41* Test Item Value Reference Range Interpretation [...] detection limit of the test. Legionella antigen, [id number] 23:29:07* Test Item Value Reference Range Interpretation Comme nts Legionella Urine Antigen (test code = 03406-6) Negative - see comment Negative Negative for L. pneumophila serogroup 1 antigen, suggesting no recent or current infection with this serogroup. Legionellosis cannot be ruled out since other serogroups and species may cause disease. Lab Interpretation (test code = 12053-2) [facility], [id number] 23:29:07* Test Item Value Reference Range Interpretation Comme nts Legionella Urine Antigen (test code = 00933-2) Negative - see comment Negative Negative for L. pneumophila serogroup 1 antigen, suggesting no recent or current infection with this serogroup. Legionellosis cannot be ruled out since other serogroups and species may cause disease. Lab Interpretation (test code = 90852-2) [facility], [id number] 23:29:07* Test Item Value Reference Range Interpretation Comme nts Legionella Urine Antigen (test code = 63203-7) Negative - see comment Negative Negative for L. pneumophila serogroup 1 antigen, suggesting no recent or current infection with this serogroup. Legionellosis cannot be ruled out since other serogroups and species may cause disease. Lab Interpretation (test code = 82606-5) [facility], [id number] 23:29:07* Test Item Value Reference Range Interpretation Comme nts Legionella Urine Antigen (test code = 33498-1) Negative - see comment Negative Negative for L. pneumophila serogroup 1 antigen, suggesting no recent or current infection with this serogroup. Legionellosis cannot be ruled out since other serogroups and species may cause disease. Lab Interpretation (test code = 92833-7) [facility], [id number] 23:29:07* Test Item Value Reference Range Interpretation Comme nts Legionella Urine Antigen (test code = 72385-7) Negative - see comment Negative Negative for L. pneumophila serogroup 1 antigen, suggesting no recent or current infection with this serogroup. Legionellosis cannot be ruled out since other serogroups and species may cause disease. Lab Interpretation (test code = 61541-0) [facility], [id number] 23:29:07* Test Item Value Reference Range Interpretation Comme [facility] Legionella Urine Antigen (test code = 80725-4) Negative - see comment Negative Negative for L. pneumophila serogroup 1 antigen, suggesting no recent or current infection with this serogroup. Legionellosis cannot be ruled out since other serogroups and species may cause disease. Lab Interpretation (test code = 05662-9) [facility], [id number] 23:29:07* Test Item Value Reference Range Interpretation Comme nts Legionella Urine Antigen (test code = 66492-1) Negative - see comment Negative Negative for L. pneumophila serogroup 1 antigen, suggesting no recent or current infection with this serogroup. Legionellosis cannot be ruled out since other serogroups and species may cause disease. Lab Interpretation (test code = 26205-1) [facility], [id number] 23:29:07* Test Item Value Reference Range Interpretation Comme nts Legionella Urine Antigen (test code = 98035-2) Negative - see comment Negative Negative for L. pneumophila serogroup 1 antigen, suggesting no recent or current infection with this serogroup. Legionellosis cannot be ruled out since other serogroups and species may cause disease. Lab Interpretation (test code = 42576-1) [facility], [id number] 23:29:07* Test Item Value Reference Range Interpretation Comme nts Legionella Urine Antigen (test code = 82623-4) Negative - see comment Negative Negative for L. pneumophila serogroup 1 antigen, suggesting no recent or current infection with this serogroup. Legionellosis cannot be ruled out since other serogroups and species may cause disease. Lab Interpretation (test code = 85028-6) [facility], [id number] 23:29:07* Test Item Value Reference Range Interpretation Comme nts Legionella Urine Antigen (test code = 04950-3) Negative - see comment Negative Negative for L. pneumophila serogroup 1 antigen, suggesting no recent or current infection with this serogroup. Legionellosis cannot be ruled out since other serogroups and species may cause disease. Lab Interpretation (test code = 77960-6) [facility], [id number] 23:29:07* Test Item Value Reference Range Interpretation Comme [facility] Legionella Urine Antigen (test code = 16635-3) Negative - see comment Negative Negative for L. pneumophila serogroup 1 antigen, suggesting no recent or current infection with this serogroup. Legionellosis cannot be ruled out since other serogroups and species may cause disease. Lab Interpretation (test code = 41027-4) [facility], [id number] 23:29:07* Test Item Value Reference Range Interpretation Comme nts Legionella Urine Antigen (test code = 18413-4) Negative - see comment Negative Negative for L. pneumophila serogroup 1 antigen, suggesting no recent or current infection with this serogroup. Legionellosis cannot be ruled out since other serogroups and species may cause disease. Lab Interpretation (test code = 88624-7) [facility], [id number] 23:29:07* Test Item Value Reference Range Interpretation Comme nts Legionella Urine Antigen (test code = 82724-5) Negative - see comment Negative Negative for L. pneumophila serogroup 1 antigen, suggesting no recent or current infection with this serogroup. Legionellosis cannot be ruled out since other serogroups and species may cause disease. Lab Interpretation (test code = 67184-6) [facility], [id number] 23:29:07* Test Item Value Reference Range Interpretation Comme nts Legionella Urine Antigen (test code = 93581-2) Negative - see comment Negative Negative for L. pneumophila serogroup 1 antigen, suggesting no recent or current infection with this serogroup. Legionellosis cannot be ruled out since other serogroups and species may cause disease. Lab Interpretation (test code = 15181-5) [facility], [id number] 23:29:07* Test Item Value Reference Range Interpretation Comme nts Legionella Urine Antigen (test code = 51079-7) Negative - see comment Negative Negative for L. pneumophila serogroup 1 antigen, suggesting no recent or current infection with this serogroup. Legionellosis cannot be ruled out since other serogroups and species may cause disease. Lab Interpretation (test code = 99550-7) [facility], [id number] 23:29:07* Test Item Value Reference Range Interpretation Comme [facility] Legionella Urine Antigen (test code = 24117-9) Negative - see comment Negative Negative for L. pneumophila serogroup 1 antigen, suggesting no recent or current infection with this serogroup. Legionellosis cannot be ruled out since other serogroups and species may cause disease. Lab Interpretation (test code = 67531-0) [facility], [id number] 23:29:07* Test Item Value Reference Range Interpretation Comme nts Legionella Urine Antigen (test code = 62444-2) Negative - see comment Negative Negative for L. pneumophila serogroup 1 antigen, suggesting no recent or current infection with this serogroup. Legionellosis cannot be ruled out since other serogroups and species may cause disease. Lab Interpretation (test code = 50746-4) [facility], [id number] 23:29:07* Test Item Value Reference Range Interpretation Comme nts Legionella Urine Antigen (test code = 20457-6) Negative - see comment Negative Negative for L. pneumophila serogroup 1 antigen, suggesting no recent or current infection with this serogroup. Legionellosis cannot be ruled out since other serogroups and species may cause disease. Lab Interpretation (test code = 21144-1) [facility], [id number] 23:29:07* Test Item Value Reference Range Interpretation Comme nts Legionella Urine Antigen (test code = 33631-7) Negative - see comment Negative Negative for L. pneumophila serogroup 1 antigen, suggesting no recent or current infection with this serogroup. Legionellosis cannot be ruled out since other serogroups and species may cause disease. Lab Interpretation (test code = 49398-9) [facility], [id number] 23:29:07* Test Item Value Reference Range Interpretation Comme nts Legionella Urine Antigen (test code = 79973-2) Negative - see comment Negative Negative for L. pneumophila serogroup 1 antigen, suggesting no recent or current infection with this serogroup. Legionellosis cannot be ruled out since other serogroups and species may cause disease. Lab Interpretation (test code = 64162-5) [facility], [id number] 23:29:07* Test Item Value Reference Range Interpretation Comme [facility] Legionella Urine Antigen (test code = 85932-5) Negative - see comment Negative Negative for L. pneumophila serogroup 1 antigen, suggesting no recent or current infection with this serogroup. Legionellosis cannot be ruled out since other serogroups and species may cause disease. Lab Interpretation (test code = 63527-4) [facility], [id number] 23:29:07* Test Item Value Reference Range Interpretation Comme nts Legionella Urine Antigen (test code = 40445-9) Negative - see comment Negative Negative for L. pneumophila serogroup 1 antigen, suggesting no recent or current infection with this serogroup. Legionellosis cannot be ruled out since other serogroups and species may cause disease. Lab Interpretation (test code = 34928-3) [facility], [id number] 23:29:07* Test Item Value Reference Range Interpretation Comme nts Legionella Urine Antigen (test code = 95029-5) Negative - see comment Negative Negative for L. pneumophila serogroup 1 antigen, suggesting no recent or current infection with this serogroup. Legionellosis cannot be ruled out since other serogroups and species may cause disease. Lab Interpretation (test code = 43191-1) [facility], [id number] 23:29:07* Test Item Value Reference Range Interpretation Comme nts Legionella Urine Antigen (test code = 51971-7) Negative - see comment Negative Negative for L. pneumophila serogroup 1 antigen, suggesting no recent or current infection with this serogroup. Legionellosis cannot be ruled out since other serogroups and species may cause disease. Lab Interpretation (test code = 46234-0) [facility], [id number] 23:29:07* Test Item Value Reference Range Interpretation Comme nts Legionella Urine Antigen (test code = 86594-5) Negative - see comment Negative Negative for L. pneumophila serogroup 1 antigen, suggesting no recent or current infection with this serogroup. Legionellosis cannot be ruled out since other serogroups and species may cause disease. Lab Interpretation (test code = 74031-8) [facility], [id number] 23:29:07* Test Item Value Reference Range Interpretation Comme [facility] Legionella Urine Antigen (test code = 94601-5) Negative - see comment Negative Negative for L. pneumophila serogroup 1 antigen, suggesting no recent or current infection with this serogroup. Legionellosis cannot be ruled out since other serogroups and species may cause disease. Lab Interpretation (test code = 01582-6) [facility], [id number] 23:29:07* Test Item Value Reference Range Interpretation Comme nts Legionella Urine Antigen (test code = 09944-0) Negative - see comment Negative Negative for L. pneumophila serogroup 1 antigen, suggesting no recent or current infection with this serogroup. Legionellosis cannot be ruled out since other serogroups and species may cause disease. Lab Interpretation (test code = 57887-8) [facility], [id number] 23:29:07* Test Item Value Reference Range Interpretation Comme nts Legionella Urine Antigen (test code = 40441-4) Negative - see comment Negative Negative for L. pneumophila serogroup 1 antigen, suggesting no recent or current infection with this serogroup. Legionellosis cannot be ruled out since other serogroups and species may cause disease. Lab Interpretation (test code = 41889-4) [facility], [id number] 23:29:07* Test Item Value Reference Range Interpretation Comme nts Legionella Urine Antigen (test code = 72362-3) Negative - see comment Negative Negative for L. pneumophila serogroup 1 antigen, suggesting no recent or current infection with this serogroup. Legionellosis cannot be ruled out since other serogroups and species may cause disease. Lab Interpretation (test code = 22123-6) [facility], [id number] 23:29:07* Test Item Value Reference Range Interpretation Comme nts Legionella Urine Antigen (test code = 85945-9) Negative - see comment Negative Negative for L. pneumophila serogroup 1 antigen, suggesting no recent or current infection with this serogroup. Legionellosis cannot be ruled out since other serogroups and species may cause disease. Lab Interpretation (test code = 76688-1) [facility], [id number] 23:29:07* Test Item Value Reference Range Interpretation Comme [facility] Legionella Urine Antigen (test code = 87417-6) Negative - see comment Negative Negative for L. pneumophila serogroup 1 antigen, suggesting no recent or current infection with this serogroup. Legionellosis cannot be ruled out since other serogroups and species may cause disease. Lab Interpretation (test code = 83375-1) [facility], [id number] 23:29:07* Test Item Value Reference Range Interpretation Comme nts Legionella Urine Antigen (test code = 43682-2) Negative - see comment Negative Negative for L. pneumophila serogroup 1 antigen, suggesting no recent or current infection with this serogroup. Legionellosis cannot be ruled out since other serogroups and species may cause disease. Lab Interpretation (test code = 92144-4) [facility], [id number] 23:29:07* Test Item Value Reference Range Interpretation Comme nts Legionella Urine Antigen (test code = 06840-5) Negative - see comment Negative Negative for L. pneumophila serogroup 1 antigen, suggesting no recent or current infection with this serogroup. Legionellosis cannot be ruled out since other serogroups and species may cause disease. Lab Interpretation (test code = 16197-9) [facility], [id number] 23:29:07* Test Item Value Reference Range Interpretation Comme nts Legionella Urine Antigen (test code = 44395-8) Negative - see comment Negative Negative for L. pneumophila serogroup 1 antigen, suggesting no recent or current infection with this serogroup. Legionellosis cannot be ruled out since other serogroups and species may cause disease. Lab Interpretation (test code = 84777-0) [facility], [id number] 23:29:07* Test Item Value Reference Range Interpretation Comme nts Legionella Urine Antigen (test code = 67929-9) Negative - see comment Negative Negative for L. pneumophila serogroup 1 antigen, suggesting no recent or current infection with this serogroup. Legionellosis cannot be ruled out since other serogroups and species may cause disease. Lab Interpretation (test code = 24266-2) [facility], [id number] 23:29:07* Test Item Value Reference Range Interpretation Comme nts Legionella Urine Antigen (test code = 52899-9) Negative - see comment Negative Negative for L. pneumophila serogroup 1 antigen, suggesting no recent or current infection with this serogroup. Legionellosis cannot be ruled out since other serogroups and species may cause disease. Lab Interpretation (test code = 27434-1) [facility], [id number] 23:29:07* Test Item Value Reference Range Interpretation Comme nts L. PNEUMOPHILA SEROGP 1 UR AG (BEAKER) (test code = 1156) Negative - see comment Negative Negative for L. pneumophila serogroup 1 antigen, suggesting no recent or current infection with this serogroup. Legionellosis cannot be ruled out since other serogroups and species may cause disease. Venous doppler arm, [id number] 20:05:32[facility] - Upper Extremities Veins Demographics Patient Name YUE LAWS Date of Study 06/13/2023 ESTELLE Age 53 Visit Number [id number] Gender Female Accession Number [id number] Date of 1970 Referring Cara Burgess Room Number 1050 Physician Commercial Appraiser Lisa Ruiz Interpreting John Solorio, Physician FellowProcedureType [...] in cm/s ; Di[facility] WITH HIV-1/2 [id number] 18:36:40* Test Item Value Reference Range Interpretation Comme nts HIV-1 ANTIGEN WITH HIV 1\\T\\2 ANTIBODY (2) (LATOYA) (test code = 2586) Nonreactive Nonreactive MR lumbar spine without & with IV [id number] 14:53:29MR LUMBAR SPINE WITH & WITHOUT IV [...] x 1.7x 1.7 cm. Dorsal paraspinal musculature D0isjxsllxjsakgy. Postcontrast imaging demonstrates mild peripheralenhancement of the dorsal paraspinal fluid collection. Left adrenalgland 2.9 cm nodule.[facility] WITH & WITHOUT IV [id number] [facility]:53[facility]29[facility] 1970 Sex: FMR [...] 1.7 x 1.7 cm. Dorsal paraspinal musculature F2iqlhpeblwjfkvg. Postcontrast imaging demonstrates mild peripheralenhancement of the [...] Signed By: Ryan Buckley06/13/2023 14:55 CDTWorkstation Name: [id number] KINASE (CK)2023-06-13 11:54:02* Test Item Value Reference Range Interpretation Comme nts CREATINE KINASE TOTAL (BEAKE R) (test code = 380) 43 U/L 29-200 [employer] Assistant ID - ADMINCOMPREHENSIVE METABOLIC [id number] 06:48:22* Test Item Value Reference Range Interpretation [...] GFR is not applicable for dialysis patients [employer] Program Assistant ID - ADMINPROTHROMBIN TIME/[id number] 06:40:01* Test Item Value Reference Range Interpretation [...] code = 2801) 1.70 % 0.00-1.00 H [id number] 05:26:09* Test Item Value Reference Range Interpretation Comme nts MAGNESIUM (BEAKER) (test cod e = 627) 2.0 mg/dL 1.6-2.6 [employer] ID - [id number] 05:26:09* Test Item Value Reference Range Interpretation Comme nts PHOSPHORUS (BEAKER) (test co de = 604) 3.5 mg/dL 2.3-4.7 [employer] Program Assistant ID - ADMINBASIC METABOLIC [id number] 05:26:08* Test Item Value Reference Range Interpretation [...] GFR is not applicable for dialysis patients [employer] Program Assistant ID - ADMINCBC W/PLT COUNT & AUTO [id number] 05:11:15* Test Item Value Reference Range Interpretation [...] 0.70 % 0.00-1.00 XR spine lumbar 1 [id number] 10:32:20XR SPINE LUMBAR 1 VIEW CLINICAL INDICATION: L3-4 LAMINECTOMY COMPARISON: NoneS[facility] HospitalXR SPINE LUMBAR 1 [id number] 10:32:20 [facility] 1970 Sex: FXR SPINE LUMBAR 1 VIEWCLINICAL INDICATION: L3-4 LAMINECTOMYCOMPARISON: NoneIMPRESSION:A single lateral view of the lumbar spine is obtained intraoperatively.The posterior approach surgical instrument is seen at the L3-L4 level,inferior to the L3 spinous process. Results were communicated to , who concurred with the above findings. Electronically Signed By: Maxim Jean Baptisteip108/01/2022 10:34 CDTWo rkstation Name: [id number] SPINE LUMBAR 1 [id number] 10:29:18 [facility] : 1970 Sex: FCLINICAL [...] Signed By: Maxim Ramos08/01/2022 10:31 CDTWorkstation Name: [id number] Screen, [id number] 05:32:52* Test Item Value Reference Range Interpretation Comme nts Preg Test, Ur (test code = 2-) Negative Negative Lab Interpretation (test cod e = 03017-2) Normal [facility] HospitalPregnancy Screen, [id number] 05:32:52* Test Item Value Reference Range Interpretation Comme nts Preg Test, Ur (test code = 2111-) Negative Negative Lab Interpretation (test cod e = 10435-2) Normal [facility] HospitalPregnancy Screen, [id number] 05:32:52* Test Item Value Reference Range Interpretation Comme nts Preg Test, Ur (test code = 2111-) Negative Negative Lab Interpretation (test cod e = 00336-1) Normal [facility] HospitalPregnancy Screen, [id number] 05:32:52* Test Item Value Reference Range Interpretation Comme nts Preg Test, Ur (test code = 2111-) Negative Negative Lab Interpretation (test cod e = 52366-5) Normal [facility] HospitalPregnancy Screen, [id number] 05:32:52* Test Item Value Reference Range Interpretation Comme nts Preg Test, Ur (test code = 2111-1) Negative Negative Lab Interpretation (test cod e = 68722-2) Normal [facility] HospitalPregnancy Screen, [id number] 05:32:52* Test Item Value Reference Range Interpretation Comme nts Preg Test, Ur (test code = 2111-1) Negative Negative Lab Interpretation (test cod e = 23472-0) Normal [facility]Pregnancy Screen, [id number] 05:32:52* Test Item Value Reference Range Interpretation Comme nts Preg Test, Ur (test code = 2112-1) Negative Negative Lab Interpretation (test cod e = 40048-7) Normal [facility]Pregnancy Screen, [id number] 05:32:52* Test Item Value Reference Range Interpretation Comme nts Preg Test, Ur (test code = 2-1) Negative Negative Lab Interpretation (test cod e = 92073-4) Normal [facility]Pregnancy Screen, [id number] 05:32:52* Test Item Value Reference Range Interpretation Comme nts Preg Test, Ur (test code = 2-1) Negative Negative Lab Interpretation (test cod e = 64583-3) Normal [facility]Pregnancy Screen, [id number] 05:32:52* Test Item Value Reference Range Interpretation Comme nts Preg Test, Ur (test code = 2111-) Negative Negative Lab Interpretation (test cod e = 60366-5) Normal [facility], [id number] 05:32:52* Test Item Value Reference Range Interpretation Comme nts Preg Test, Ur (test code = 2111-) Negative Negative Lab Interpretation (test cod e = 29706-6) [facility], [id number] 05:32:52* Test Item Value Reference Range Interpretation Comme nts Preg Test, Ur (test code = 2111-) Negative Negative Lab Interpretation (test cod e = 03348-8) [facility], [id number] 05:32:52* Test Item Value Reference Range Interpretation Comme nts Preg Test, Ur (test code = 2111-1) Negative Negative Lab Interpretation (test cod e = 70693-1) [facility], [id number] 05:32:52* Test Item Value Reference Range Interpretation Comme nts Preg Test, Ur (test code = 2111-1) Negative Negative Lab Interpretation (test cod e = 96105-0) Normal [facility], [id number] 05:32:52* Test Item Value Reference Range Interpretation Comme nts Preg Test, Ur (test code = 2111-1) Negative Negative Lab Interpretation (test cod e = 47446-2) Normal [facility]Pregnancy Screen, [id number] 05:32:52* Test Item Value Reference Range Interpretation Comme nts Preg Test, Ur (test code = 2111-) Negative Negative Lab Interpretation (test cod e = 36864-0) [facility], [id number] 05:32:52* Test Item Value Reference Range Interpretation Comme nts Preg Test, Ur (test code = 2111-) Negative Negative Lab Interpretation (test cod e = 65477-0) [facility], [id number] 05:32:52* Test Item Value Reference Range Interpretation Comme nts Preg Test, Ur (test code = 2111-) Negative Negative Lab Interpretation (test cod e = 21271-2) [facility], [id number] 05:32:52* Test Item Value Reference Range Interpretation Comme nts Preg Test, Ur (test code = 2111-) Negative Negative Lab Interpretation (test cod e = 22144-3) [facility], [id number] 05:32:52* Test Item Value Reference Range Interpretation Comme nts Preg Test, Ur (test code = 2111-) Negative Negative Lab Interpretation (test cod e = 09171-9) [facility], [id number] 05:32:52* Test Item Value Reference Range Interpretation Comme nts Preg Test, Ur (test code = 2111-) Negative Negative Lab Interpretation (test cod e = 05362-9) [facility], [id number] 05:32:52* Test Item Value Reference Range Interpretation Comme nts Preg Test, Ur (test code = 2111-) Negative Negative Lab Interpretation (test cod e = 95296-5) [facility], [id number] 05:32:52* Test Item Value Reference Range Interpretation Comme nts Preg Test, Ur (test code = 2111-) Negative Negative Lab Interpretation (test cod e = 68797-4) [facility], [id number] 05:32:52* Test Item Value Reference Range Interpretation Comme nts Preg Test, Ur (test code = 2-1) Negative Negative Lab Interpretation (test cod e = 10302-1) [facility], [id number] 05:32:52* Test Item Value Reference Range Interpretation Comme nts Preg Test, Ur (test code = 2-1) Negative Negative Lab Interpretation (test cod e = 81458-3) [facility], [id number] 05:32:52* Test Item Value Reference Range Interpretation Comme nts Preg Test, Ur (test code = 2-1) Negative Negative Lab Interpretation (test cod e = 79334-7) [facility] [id number] 05:32:52* Test Item Value Reference Range Interpretation Comme nts Preg Test, Ur (test code = 2-1) Negative Negative Lab Interpretation (test cod e = 76906-6) [facility], [id number] 05:32:52* Test Item Value Reference Range Interpretation Comme nts Preg Test, Ur (test code = 2-1) Negative Negative Lab Interpretation (test cod e = 25987-2) [facility], [id number] 05:32:52* Test Item Value Reference Range Interpretation Comme nts Preg Test, Ur (test code = 2-1) Negative Negative Lab Interpretation (test cod e = 32502-5) [facility], [id number] 05:32:52* Test Item Value Reference Range Interpretation Comme nts Preg Test, Ur (test code = 2111-1) Negative Negative Lab Interpretation (test cod e = 11548-9) [facility], [id number] 05:32:52* Test Item Value Reference Range Interpretation Comme nts Preg Test, Ur (test code = 2-1) Negative Negative Lab Interpretation (test cod e = 18466-5) Normal [facility], [id number] 05:32:52* Test Item Value Reference Range Interpretation Comme nts Preg Test, Ur (test code = 2-1) Negative Negative Lab Interpretation (test cod e = 96899-6) Normal [facility], [id number] 05:32:52* Test Item Value Reference Range Interpretation Comme nts Preg Test, Ur (test code = 2-1) Negative Negative Lab Interpretation (test cod e = 67546-6) [facility], [id number] 05:32:52* Test Item Value Reference Range Interpretation Comme nts Preg Test, Ur (test code = 2-1) Negative Negative Lab Interpretation (test cod e = 66085-8) [facility], [id number] 05:32:52* Test Item Value Reference Range Interpretation Comme nts Preg Test, Ur (test code = 2111-) Negative Negative Lab Interpretation (test cod e = 17292-9) Normal [facility], [id number] 05:32:52* Test Item Value Reference Range Interpretation Comme nts Preg Test, Ur (test code = 2111-1) Negative Negative Lab Interpretation (test cod e = 22367-1) Normal [facility], [id number] 05:32:52* Test Item Value Reference Range Interpretation Comme nts Preg Test, Ur (test code = 2111-1) Negative Negative Lab Interpretation (test cod e = 90460-0) Normal [facility], [id number] 05:32:52* Test Item Value Reference Range Interpretation Comme nts Preg Test, Ur (test code = 2-1) Negative Negative Lab Interpretation (test cod e = 57120-1) Normal [facility], [id number] 05:32:52* Test Item Value Reference Range Interpretation Comme nts Preg Test, Ur (test code = 2-1) Negative Negative Lab Interpretation (test cod e = 26490-8) Normal [facility]PREG[facility]NCY SCREEN, [id number] 05:32:52* Test Item Value Reference Range Interpretation Comme nts TEST URINE (BEAKER ) (test code = 583) Negative Negative BASIC METABOLIC [id number] 23:30:54* Test Item Value Reference Range Interpretation [...] GFR is not applicable for dialysis patients [employer] Program Assistant ID - ADMINPT/[id number] 23:15:33* Test Item Value Reference Range Interpretation [...] H CT neck soft tissue without IV ltruywmn8073-46-41 13:45:22EXAM: CT NECK SOFT TISSUE WITHOUT IV [...] Postoperative changes from anterior cervical discectomy fusionat C3-G3Svovbdgh Lung Apices: NormalCHI [facility] Grossmont HospitalCT NECK SOFT TISSUE WITHOUT IV [id number] 13:45:22 [facility] 1970 Sex: FEXAM: CT NECK SOFT TISSUE [...] Postoperative changes from anterior cervical discectomy fusionat C3-H0Nmgiezoi Lung Apices: NormalIMPRESSION:Exam limited by lack of intravenous contrast.1. 1.8 x 2.9 x 1.3 cm ill-defined fluid collection in the leftanterolateral neck soft tissues, suggesting evolving postoperativehemorrhage. Superimposed infection is not ex cluded.2. Retropharyngeal fluid and air measuring up to 0.8 cm in thickness,favored to be present postoperative right frontal edema. Superimposedinfection is not excluded.3. Postoperative changes from ACDF at C3- S9Cwoflazwhvktwv Signed By: Maxim Ramos07/31/2022 13:47 CDTWorkstation Name: [id number] METABOLIC [id number] 08:13:13* Test Item Value Reference Range Interpretation [...] GFR is not applicable for dialysis patients After School Program Assistant ID - BVCBC W/PLT COUNT & AUTO [id number] 07:46:31* Test Item Value Reference Range Interpretation [...] 0.00-1.00 XR spine cervical 2 or 3 [id number] 20:24:23TECHNIQUE: Frontal and lateral views of the cervical spine. INDICATION: Postop Standing Films. COMPARISON: None.[facility] HospitalXR SPINE CERVICAL 2 OR 3 [id number] 20:24:23[facility] 1970 Sex: FTECHNIQUE: [...] Signed By: Zachariah Garcia05/28/2023 20:26 CDTWorkstation Name: [id number] fluoro non-specific up to 1 hour 2023-05-28 11:45:16This is a non-reportable study with no Radiologist dictation. Please refer to your PACS to review images, or Doc Flowsheets for documentation on studies without images.[facility] HospitalFL FLUORO NON-SPECIFIC UP TO 1 [id number] 11:45:16 [facility] 1970 Sex: FThis is a non- reportable study with no Radiologist dictation. Please refer to your PACS to reviewimages, or Doc Flowsheets for documentation on studies without images.FL FLUORO NON-SPECIFIC UP TO 1 [id number] 10:13:02 [facility] : 1970 Sex: FTECHNIQUE: 1 lateral fluoroscopic image of the cervical spine forlocalization.Fluoroscopic time: 3second(s).FINDINGS:The surgical pointer is at C3-C4.The findings were discussed with Dr. Garcia in theOR who concurred withthe findings.IMPRESSION:Intraoperative localization plain film as described abo ve.Electronically Signed By: Derik Reyez05/28/2023 10:15 CDTWorkstation Name: [id number], QUANTITATIVE, [id number] 08:21:03* Test Item Value Reference Range Interpretation Comme nts GONADOTROPIN, CHORIONIC (HCG ) QUANT (BEAKER) (test code = 649) < mIU/mL 0-10 Non- Females: <10 mIU/mL Females: Gestation Age Reference Range(mIU/mL) 0.2-1 Week 5-50 1-2 Weeks 50-500 2-3 Weeks 100-5,000 3-4 Weeks 500-10,000 4-5 Weeks 1,000-50,000 5-6 Weeks 10,000-100,000 6-8 Weeks 15,000- 200,000 2-3 Months 10,000-100,000 After School Program Assistant ID - ADMINCULTURE, [id number] 09:28:30SPECIMEN NUMBER: [id number] CULTURE, URINE SPECIMEN NUMBER: [id number] SPECIMEN COMMENT: URINE SOURCE: URINE REPORT STATUS: FINAL FINAL REPORT: 05/15/2023 >100,000 CFU/ML UROGENITAL REBEL PRESENT NOCOMMON PATHOGENS UNLESS OTHERWISE INDICATED, ALL TESTING PERFORMED AT [facility] [address] [place], [place] [address] MANUFACTURING LEADER: JANNY STEINER M.D. CLIA NUMBER [id number] [place]. [id number], [id number] 12:02:50SPECIMEN NUMBER: [id number] CULTURE, URINE SPECIMEN NUMBER: [id number] SOURCE: URINE REPORT STATUS: FINAL FINAL REPORT: 05/13/2023 NO SPECIMEN RECEIVED FOR TESTING. CHARGES DELETED.BASIC METABOLIC [id number] 04:48:43* Test Item Value Reference Range Interpretation Comme nts GLUCOSE (test code = 2217) 117 MG/DL 70-99 H BUN (test code = 2208) 20 MG/DL 6-20 CREATININE (test code = 2214) 0.83 MG/DL 0.60-1.30 eGFR (2020 CKD-EPI) (test co de = 85368) 85 ML/MIN/1.73 >60 SODIUM (test code = [...] 12.7 SECONDS 12.5-14.7 INR (test code = 68274) 0.9 SEE BELOW CURRENT RECOMMENDATIONS ARE FOR AN INR OF 2.0-3.0 FOR ALL PATIENTS ON VITAMIN K ANTAGONISTS, EXCEPT THOSE WITH PROSTHETIC HEART VALVES, FOR WHOM INR OF 2.5-3.5 IS RECOMMENDED. UNLESS OTHERWISE INDICATED, ALL TESTING PERFORMED AT [facility] [address] [place] [id number] MANUFACTURING LEADER: JANNY STEINER M.D. CLIA NUMBER [id number] [place]. [id number] CBC W/AUTO DIFF WITH [id number] 01:54:17* Test Item Value Reference Range Interpretation [...] = 1065) 0.0 /100 WBC'S See_Comment [Automated Summifya ge] The system which generated this result [...] H ABS NUCLEATED RBCS (test code = 87374) 0.00 K/UL 0.00-0.11 ECG 12 [id number] 14:02:48Ventricular Rate 102 BPMAtrial Rate 102 BPMP-R Interval 146 msQRS Duration 90 msQ-T Interval 372 msQTC Calculation(Bazett) 484 msP Douglas 11 degreesR Douglas -53 degreesT Douglas 29 degrees Sinus tachycardiaPossible Left atrial enlargementLeft axis deviationPoor R wave progression Cannot rule out Anterior infarct , age undetermined vs lead misplacementNonspecific T wave abnormalityProlonged QTAbnormal ECGNo previous ECGs availableConfirmed by David GARCIA BASANT ([id number]) on 04/06/2023 2:02:46 [facility]AST & [id number] 13:11:39Transthoracic Echocardiography Report (TTE) Demographics Patient Name YEU LAWS Date of Study 03/31/2023 ESTELLE Gender Female Visit Number [id number] Race Room Number 2227 Number Date of 1970 Referring Physician Mariah Aldridge MD Age 53 year(s) Commercial Appraiser Wilmer Francois Body Sander Josefina Corbett, [facility] Interpreting Physician Melody [...] Peak Velocity: 0.74 m/s Peak Gradient: 2.22 mmHgSanger General HospitalXR chest 1 view portable / [id number] 15:39:07TECHNIQUE: Frontal view of the chest. INDICATION: CHf. COMPARISON: None. FINDINGS: LINES/TUBES: None. HEART AND MEDIASTINUM: Cardiomediastinal contour is within normallimits. LUNGS: The lungs are well inflated and clear. No consolidation orpulmonary edema. PLEURA: No pneumothorax. No significant pleural effusion. SOFT TISSUES AND BONES: Cervical spinal fixation hardware is noted.[facility] HospitalXR CHEST 1 VIEW PORTABLE / [id number] 15:39:07 [facility] : 1970 Sex: FTECHNIQUE: Frontal view of the chest.INDICATION: CHf.COMPARISON: None.FINDINGS:LINES/TUBES: None.HE ART AND MEDIASTINUM: Cardiomediastinal contour is within normallimits. LUNGS: The lungs are well inflated and clear. No consolidation orpulmonary edema.PLEURA: No pneumothorax. No significant pleuraleffusion.SOFT TISSUES AND BONES: Cervical spinal fixation hardware is noted.IMPRESSION:No acute card iopulmonary process.Electronically Signed By: Jose Carlos Lebron04/01/2023 15:41 CDTWorkstation Name: [id number] NATRIURETIC FACTOR (BNP)2023-04-01 14:15:07* Test Item Value Reference Range Interpretation Comme nts B-TYPE NATRIURETIC PEPTIDE ( BEAKER) (test code = 700) 192 pg/mL 0-100 H After School Program Assistant ID - ADMINMR spine cervical without IV [id number] 11:30:35MRI cervical spine without contrast CLINICAL HISTORY: [...] and paraspinal soft tissues are within normal limits.[facility] HospitalMR CERVICAL SPINE WITHOUT IV [id number] 11:30:35 [facility] : 1970 Sex: FMRI [...] Signed By: Maxim Sultana03/31/2023 11:32 CDTWorkstation Name: [id number] METABOLIC [id number] 04:43:14* Test Item Value Reference Range Interpretation [...] GFR is not applicable for dialysis patients After School Program Assistant ID - MADELINE WCBC (HEMOGRAM ONLY)2023-03-31 04:20:07* [...] 0 /100 WBC 0-0 Arterial doppler legs udmtokjso6162-54-48 17:44:07PV LAB - Lower Extremity Arterial Duplex Demographics Patient Name YUE LAWS Date of Study ESTELLE Age 53 Visit Number [id number] Gender Female Accession Number [id number] Date of 1970 Referring Mariah Aldridge, Room Number 2227 Physician Commercial Appraiser Yovana Akins Interpreting Physician CARO Oliver FellowProcedureType of Study: Extremities Arteries: Lower Extremities [...] + + + + + + !Prox CONTENT EDITOR ! !32 ! !Biphasic ! !60.9 ! !Triphasic ! +--- + + + + + + + + + !Mid CONTENT EDITOR! !25.9 ! !Biphasic ! !59.7 ! !Triphasic ! + + + + + + + + + + !Dist CONTENT EDITOR ! !33.2 ! !Biphasic ! !37.4 ! [...] + + + + + + +[facility] HospitalABI's Only(Ankle/Brachial Index)2023-03-30 17:13:47PV LAB - Lower Extremity Arterial Procedure Demographics Patient Name YUE LAWS Date of Study 03/30/2023 ESTELLE Age 53 Visit Number [id number] Gender Female Accession Number [id number] Date of 1970 Referring Mariah Aldridge, Room Number 2227 Physician Commercial Appraiser Yovana Akins Interpreting John Solorio, Physician FellowProcedureType [...] [facility] thoracic spine without IV [id number] 12:50:50 THORACIC SPINE WITHOUT IV CONTRAST INDICATION: [...] and further reported on MRI lumbar spine. [facility] HospitalMR THORACIC SPINE WITHOUT IV [id number] 12:50:50[facility] : 1970 Sex: FMR [...] abnormality. T10-11 moderate right neural foraminal stenosis qaqG39-15 moderate bilateral foraminal stenosis due to facet [...] Signed By: Ryan Buckley03/30/2023 12:52 CDTWorkstation Name: [id number] spine lumbar without IV ckjpyxjw7107-45-07 12:33:57MR LUMBAR SPINE WITHOUT IV CONTRAST INDICATION: Unlisted Reason for ExamConcern for cord compression COMPARISON: None TECHNIQUE: Multiplanar, multisequence MR images of the lumbar spinewithout contrast. FINDINGS: For the purposes of this dictation, the 5 lowermost bbkpxe-unkcxcvnjdong-odis vertebral bodies are labeled L1-L5.Alignment of the [...] with mild to moderatebilateral neural foraminal stenosisCHI Sharp Grossmont HospitalMR LUMBAR SPINE WITHOUT IV [id number] 12:33:57 [facility] HEATHERGRACIELA MCCABE : 1970 Sex: FMR LUMBAR SPINE WITHOUT IV CONTRASTINDICATION: Unlisted Reason for ExamConcern for cord compressionCOMPARISON: NoneTECHNIQUE: Multiplanar, multisequence MR images of the lumbar spinewithout contrast. FINDINGS: For the purposes of this dictation, the 5 lowermost jnfhew-wtpmorwrloewy-bbhw vertebral bodies are labeled L1- L5.Alignment of the lumbar spine is within normal limits. Vertebral body height is maintained. Bone marrow edema is seen at the inferior L3 and superior L4 vertebralbodies and bilateral L4 pedicles, favored to be degenerative in nature.Suggestion of a synovial cyst at the zihsgJ05-C05 level (series 301image eight).No spinal cord signal [...] flavum buckling versus synovial cyst at the bldanW13-B44 level (series 301image eight). MRI thoracic spine can beconsidered for further evaluation.7. Mild clumping of the cauda equina nerve roots, which is nonspecificbut may represent arachnoiditis. Postcontrast imaging can be consideredfor further evaluation.Electronically Signed By: Maxim Sultana03/30/2023 12:36 CDTWorkstation Name: [id number] 11:45:01* Test Item Value Reference Range Interpretation [...] 5.7- 6.4% indicates increased risk for diabetes (prediabetes)."After School Program Assistant ID - ADMEEG AWAKE AND [id number] 09:57:53Steph Martinez MD 03/30/2023 9:[address] Type: Inpatient, outpatient, EMUDATE(s) OF EE03/30/23DATE OF REPORT: 03/30/23MRN: [id number] of : 1970EE-1454Start time: 08:36Stop time: 09:23ICD-10: R56.9 CPT Code: 22915 (awake and asleep)HISTORY: 53 y/o female with [...] EEG recordings. Steph Elias MD, MPHNeurophysiology/Epilepsy AttendingCH[facility] Hospital EEG AWAKE AND [id number] 09:57:53Gabrielstalin Martinez MD 03/30/2023 9:59 AMELECTROENCEPHALOGRAM FOR [facility] EEG Type: Inpatient, outpatient, EMUDATE(s) OF EE03/30/23DATE OF REPORT: 03/30/23MRN: [id number] of : 1970EE-1454Start time: 08:36Stop time: 09:23ICD-10: R56.9 CPT Code: 06912 (awake and asleep)HISTORY: 53 y/o female with [...] EEG recordings. Steph Elias MD, MPHNeurophysiology/Epilepsy AttendingCH[facility] EEG AWAKE AND [id number] 09:57:53Steph Martinez MD 03/30/2023 9:59 AMELECTROENCEPHALOGRAM FOR [facility] EEG Type: Inpatient, outpatient, EMUDATE(s) OF EE03/30/23DATE OF REPORT: 03/30/23MRN: [id number] of : 1970EE-1454Start time: 08:36Stop time: 09:23ICD-10: R56.9 CPT Code: 66503 (awake and asleep)HISTORY: 53 y/o female with [...] EEG recordings. Steph Elias MD, MPHNeurophysiology/Epilepsy AttendingCH[facility] Hospital VALPROIC ACID LEVEL, [id number] 09:42:31* Test Item Value Reference Range Interpretation Comme nts VALPROIC ACID TOTAL (BEAKER) (test code = 924) 76 ug/mL 50-100 Therapeutic range for some clinical conditions may be >100 ug/mLUrinalysis w/Microscopic + Reflex to [id number] 08:43:51* Test Item Value Reference Range Interpretation Comme nts Color, UA (test code = 5778-6) Yellow Clarity, UA (test code = 5767-9) Clear Specific [place], UA (test code = 5811-5) 1.033 1.001-1.035 pH, UA (test code = 5803-2) 6.0 5.0-8.0 Protein, UA (test code = 52614-7) 30 mg/dL Negative A Glucose, UA (test code = 365) Negative Negative Ketones, UA (test code = 2514-8) Negative Negative Bilirubin, UA (test code = 22748-1) Negative Negative Blood, UA (test code = 77298-0) Small Negative A Nitrite, UA (test code = 5802-4) Negative Negative Leukocytes, UA (test code = 5799-2) Negative Negative Urobilinogen, UA (test code = 68413-7) 0.2 0.2-1.0 RBC, UA (test code = 78090-3) 51 See_Comment [Automated message] The system which [...] Occasional Squam Epithel, UA (test code = 00271-1) See_Comment [Automated message] The system which generated this result transmitted reference range: /HPF. The reference range was not used to interpret this result as normal/abnormal. Specimen Source (test code = 2795) LYNDSAY (test code = LYNDSAY) After School Program Assistant ID - [auto]After School Program Assistant ID - tech Lab Interpretation (test code = 55118-0) Abnormal [facility] HospitalUrinalysis w/Microscopic + Reflex to Culture 2023-03-30 08:43:51* Test Item Value Reference Range Interpretation Comme nts Color, UA (test code = 5778-6) Yellow Clarity, UA (test code = 5767-9) Clear Specific [place], UA (test code = 5811-5) 1.033 1.001-1.035 pH, UA (test code = 5803-2) 6.0 5.0-8.0 Protein, UA (test code = 13929-0) 30 mg/dL Negative A Glucose, UA (test code = 365) Negative Negative Ketones, UA (test code = 2514-8) Negative Negative Bilirubin, UA (test code = 60005-5) Negative Negative Blood, UA (test code = 81774-2) Small Negative A Nitrite, UA (test code = 5802-4) Negative Negative Leukocytes, UA (test code = 5799-2) Negative Negative Urobilinogen, UA (test code = 75463-7) 0.2 0.2-1.0 RBC, UA (test code = 00495-2) 51 See_Comment [Automated message] The system which [...] Occasional Squam Epithel, UA (test code = 84067-4) See_Comment [Automated message] The system which generated this result transmitted reference range: /HPF. The reference range was not used to interpret this result as normal/abnormal. Specimen Source (test code = 2795) LYNDSAY (test code = LYNDSAY) After School Program Assistant ID - [auto]After School Program Assistant ID - tech Lab Interpretation (test code = 94728-2) Abnormal [facility] HospitalUrinalysis w/Microscopic + Reflex to Culture 2023-03-30 08:43:51* Test Item Value Reference Range Interpretation Comme nts Color, UA (test code = 5778-6) Yellow Clarity, UA (test code = 5767-9) Clear Specific [place], UA (test code = 5811-5) 1.033 1.001-1.035 pH, UA (test code = 5803-2) 6.0 5.0-8.0 Protein, UA (test code = 49687-9) 30 mg/dL Negative A Glucose, UA (test code = 365) Negative Negative Ketones, UA (test code = 2514-8) Negative Negative Bilirubin, UA (test code = 62856-1) Negative Negative Blood, UA (test code = 52310-9) Small Negative A Nitrite, UA (test code = 5802-4) Negative Negative Leukocytes, UA (test code = 5799-2) Negative Negative Urobilinogen, UA (test code = 36950-9) 0.2 0.2-1.0 RBC, UA (test code = 58358-4) 51 See_Comment [Automated message] The system which [...] Occasional Squam Epithel, UA (test code = 19343-6) See_Comment [Automated message] The system which generated this result transmitted reference range: /HPF. The reference range was not used to interpret this result as normal/abnormal. Specimen Source (test code = 2795) LYNDSAY (test code = LYNDSAY) After School Program Assistant ID - [auto]After School Program Assistant ID - tech Lab Interpretation (test code = 24513-2) Abnormal [facility] HospitalUrinal[facility] w/Microscopic + Reflex to Culture 2023-03-30 08:43:51* Test Item Value Reference Range Interpretation Comme nts Color, UA (test code = 5778-6) Yellow Clarity, UA (test code = 5767-9) Clear Specific [place], UA (test code = 5811-5) 1.033 1.001-1.035 pH, UA (test code = 5803-2) 6.0 5.0-8.0 Protein, UA (test code = 93909-6) 30 mg/dL Negative A Glucose, UA (test code = 365) Negative Negative Ketones, UA (test code = 2514-8) Negative Negative Bilirubin, UA (test code = 82431-7) Negative Negative Blood, UA (test code = 94154-8) Small Negative A Nitrite, UA (test code = 5802-4) Negative Negative Leukocytes, UA (test code = 5799-2) Negative Negative Urobilinogen, UA (test code = 01253-4) 0.2 0.2-1.0 RBC, UA (test code = 67836-0) 51 See_Comment [Automated message] The system which [...] Occasional Squam Epithel, UA (test code = 45841-6) See_Comment [Automated message] The system which generated this result transmitted reference range: /HPF. The reference range was not used to interpret this result as normal/abnormal. Specimen Source (test code = 2795) LYNDSAY (test code = LYNDSAY) After School Program Assistant ID - [auto]After School Program Assistant ID - tech Lab Interpretation (test code = 91930-2) Abnormal [facility] Hospital[facility]inalysis w/Microscopic + Reflex to Culture 2023-03-30 08:43:51* Test Item Value Reference Range Interpretation Comme nts Color, UA (test code = 5778-6) Yellow Clarity, UA (test code = 5767-9) Clear Specific [place], UA (test code = 5811-5) 1.033 1.001-1.035 pH, UA (test code = 5803-2) 6.0 5.0-8.0 Protein, UA (test code = 03613-9) 30 mg/dL Negative A Glucose, UA (test code = 365) Negative Negative Ketones, UA (test code = 2514-8) Negative Negative Bilirubin, UA (test code = 74680-9) Negative Negative Blood, UA (test code = 64113-1) Small Negative A Nitrite, UA (test code = 5802-4) Negative Negative Leukocytes, UA (test code = 5799-2) Negative Negative Urobilinogen, UA (test code = 35206-6) 0.2 0.2-1.0 RBC, UA (test code = 56980-1) 51 See_Comment [Automated message] The system which [...] Occasional Squam Epithel, UA (test code = 85553-8) See_Comment [Automated message] The system which generated this result transmitted reference range: /HPF. The reference range was not used to interpret this result as normal/abnormal. Specimen Source (test code = 2795) LYNDSAY (test code = LYNDSAY) [employer] Program Assistant ID - [auto]After School Program Assistant ID - tech Lab Interpretation (test code = 87374-5) [facility] 08:43:51* Test Item Value Reference Range Interpretation Comme nts Color, UA (test code = 5778-6) Yellow Clarity, UA (test code = 5767-9) Clear Specific [place], UA (test code = 5811-5) 1.033 1.001-1.035 pH, UA (test code = 5803-2) 6.0 5.0-8.0 Protein, UA (test code = 98248-5) 30 mg/dL Negative A Glucose, UA (test code = 365) Negative Negative Ketones, UA (test code = 2514-8) Negative Negative Bilirubin, UA (test code = 00051-5) Negative Negative Blood, UA (test code = 36731-9) Small Negative A Nitrite, UA (test code = 5802-4) Negative Negative Leukocytes, UA (test code = 5799-2) Negative Negative Urobilinogen, UA (test code = 47633-1) 0.2 0.2-1.0 RBC, UA (test code = 17639-6) 51 See_Comment [Automated message] The system which [...] Occasional Squam Epithel, UA (test code = 73923-8) See_Comment [Automated message] The system which generated this result transmitted reference range: /HPF. The reference range was not used to interpret this result as normal/abnormal. Specimen Source (test code = 2795) LYNDSAY (test code = LYNDSAY) After [employer] Program Assistant ID - [auto]After School Program Assistant ID - tech Lab Interpretation (test code = 38699-9) [facility] 2023-03-30 08:43:51* Test Item Value Reference Range Interpretation Comme nts Color, UA (test code = 5778-6) Yellow Clarity, UA (test code = 5767-9) Clear Specific [place], UA (test code = 5811-5) 1.033 1.001-1.035 pH, UA (test code = 5803-2) 6.0 5.0-8.0 Protein, UA (test code = 35259-1) 30 mg/dL Negative A Glucose, UA (test code = 365) Negative Negative Ketones, UA (test code = 2514-8) Negative Negative Bilirubin, UA (test code = 93279-8) Negative Negative Blood, UA (test code = 65960-0) Small Negative A Nitrite, UA (test code = 5802-4) Negative Negative Leukocytes, UA (test code = 5799-2) Negative Negative Urobilinogen, UA (test code = 10256-6) 0.2 0.2-1.0 RBC, UA (test code = 56482-9) 51 See_Comment [Automated message] The system which [...] Occasional Squam Epithel, UA (test code = 91027-2) See_Comment [Automated message] The system which generated this result transmitted reference range: /HPF. The reference range was not used to interpret this result as normal/abnormal. Specimen Source (test code = 2795) LYNDSAY (test code = LYNDSAY) After School Program Assistant ID - [auto]After School Program Assistant ID - tech Lab Interpretation (test code = 77722-4) [facility] Culture 2023-03-30 08:43:51* Test Item Value Reference Range Interpretation Comme nts Color, UA (test code = 5778-6) Yellow Clarity, UA (test code = 5767-9) Clear Specific [place], UA (test code = 5811-5) 1.033 1.001-1.035 pH, UA (test code = 5803-2) 6.0 5.0-8.0 Protein, UA (test code = 85355-6) 30 mg/dL Negative A Glucose, UA (test code = 365) Negative Negative Ketones, UA (test code = 2514-8) Negative Negative Bilirubin, UA (test code = 18403-7) Negative Negative Blood, UA (test code = 39596-0) Small Negative A Nitrite, UA (test code = 5802-4) Negative Negative Leukocytes, UA (test code = 5799-2) Negative Negative Urobilinogen, UA (test code = 66305-9) 0.2 0.2-1.0 RBC, UA (test code = 92474-5) 51 See_Comment [Automated message] The system which [...] Occasional Squam Epithel, UA (test code = 13346-4) See_Comment [Automated message] The system which generated this result transmitted reference range: /HPF. The reference range was not used to interpret this result as normal/abnormal. Specimen Source (test code = 2795) LYNSDAY (test code = LYNDSAY) After School Program Assistant ID - [auto]After School Program Assistant ID - tech Lab Interpretation (test code = 71027-8) [facility]23[facility]30 08:43:51* Test Item Value Reference Range Interpretation Comme nts Color, UA (test code = 5778-6) Yellow Clarity, UA (test code = 5767-9) Clear Specific [place], UA (test code = 5811-5) 1.033 1.001-1.035 pH, UA (test code = 5803-2) 6.0 5.0-8.0 Protein, UA (test code = 61494-9) 30 mg/dL Negative A Glucose, UA (test code = 365) Negative Negative Ketones, UA (test code = 2514-8) Negative Negative Bilirubin, UA (test code = 99146-2) Negative Negative Blood, UA (test code = 92143-3) Small Negative A Nitrite, UA (test code = 5802-4) Negative Negative Leukocytes, UA (test code = 5799-2) Negative Negative Urobilinogen, UA (test code = 86756-1) 0.2 0.2-1.0 RBC, UA (test code = 81607-6) 51 See_Comment [Automated message] The system which [...] Occasional Squam Epithel, UA (test code = 87678-9) See_Comment [Automated message] The system which generated this result transmitted reference range: /HPF. The reference range was not used to interpret this result as normal/abnormal. Specimen Source (test code = 2795) LYNDSAY (test code = LYNDSAY) After School Program Assistant ID - [auto]After School Program Assistant ID - tech Lab Interpretation (test code = 33294-5) [facility] Culture 2023-03-30 08:43:51* Test Item Value Reference Range Interpretation Comme nts Color, UA (test code = 5778-6) Yellow Clarity, UA (test code = 5767-9) Clear Specific [place], UA (test code = 5811-5) 1.033 1.001-1.035 pH, UA (test code = 5803-2) 6.0 5.0-8.0 Protein, UA (test code = 94797-2) 30 mg/dL Negative A Glucose, UA (test code = 365) Negative Negative Ketones, UA (test code = 2514-8) Negative Negative Bilirubin, UA (test code = 77131-2) Negative Negative Blood, UA (test code = 68295-5) Small Negative A Nitrite, UA (test code = 5802-4) Negative Negative Leukocytes, UA (test code = 5799-2) Negative Negative Urobilinogen, UA (test code = 95704-9) 0.2 0.2-1.0 RBC, UA (test code = 35837-7) 51 See_Comment [Automated message] The system which [...] Occasional Squam Epithel, UA (test code = 05118-6) See_Comment [Automated message] The system which generated this result transmitted reference range: /HPF. The reference range was not used to interpret this result as normal/abnormal. Specimen Source (test code = 2795) LYNDSAY (test code = LYNDSAY) After School Program Assistant ID - [auto]After School Program Assistant ID - tech Lab Interpretation (test code = 96790-9) [facility] Culture 2023-03-30 08:43:51* Test Item Value Reference Range Interpretation Comme nts Color, UA (test code = 5778-6) Yellow Clarity, UA (test code = 5767-9) Clear Specific [place], UA (test code = 5811-5) 1.033 1.001-1.035 pH, UA (test code = 5803-2) 6.0 5.0-8.0 Protein, UA (test code = 20343-9) 30 mg/dL Negative A Glucose, UA (test code = 365) Negative Negative Ketones, UA (test code = 2514-8) Negative Negative Bilirubin, UA (test code = 91388-6) Negative Negative Blood, UA (test code = 60755-3) Small Negative A Nitrite, UA (test code = 5802-4) Negative Negative Leukocytes, UA (test code = 5799-2) Negative Negative Urobilinogen, UA (test code = 66372-3) 0.2 0.2-1.0 RBC, UA (test code = 16195-9) 51 See_Comment [Automated message] The system which [...] Occasional Squam Epithel, UA (test code = 02619-7) See_Comment [Automated message] The system which generated this result transmitted reference range: /HPF. The reference range was not used to interpret this result as normal/abnormal. Specimen Source (test code = 2795) LYNDSAY (test code = LYNDSAY) After School Program Assistant ID - [auto]After School Program Assistant ID - tech Lab Interpretation (test code = 72997-3) [facility] Reflex [facility] Culture 2023-03-30 08:43:51* Test Item Value Reference Range Interpretation Comme nts Color, UA (test code = 5778-6) Yellow Clarity, UA (test code = 5767-9) Clear Specific [place], UA (test code = 5811-5) 1.033 1.001-1.035 pH, UA (test code = 5803-2) 6.0 5.0-8.0 Protein, UA (test code = 69632-9) 30 mg/dL Negative A Glucose, UA (test code = 365) Negative Negative Ketones, UA (test code = 2514-8) Negative Negative Bilirubin, UA (test code = 21953-4) Negative Negative Blood, UA (test code = 06112-3) Small Negative A Nitrite, UA (test code = 5802-4) Negative Negative Leukocytes, UA (test code = 5799-2) Negative Negative Urobilinogen, UA (test code = 67066-9) 0.2 0.2-1.0 RBC, UA (test code = 16490-8) 51 See_Comment [Automated message] The system which [...] Occasional Squam Epithel, UA (test code = 32675-6) See_Comment [Automated message] The system which generated this result transmitted reference range: /HPF. The reference range was not used to interpret this result as normal/abnormal. Specimen Source (test code = 2795) LYNDSAY (test code = LYNDSAY) After School Program Assistant ID - [auto]After School Program Assistant ID - tech Lab Interpretation (test code = 22280-0) [facility]lex [facility] Culture 2023-03-30 08:43:51* Test Item Value Reference Range Interpretation Comme nts Color, UA (test code = 5778-6) Yellow Clarity, UA (test code = 5767-9) Clear Specific [place], UA (test code = 5811-5) 1.033 1.001-1.035 pH, UA (test code = 5803-2) 6.0 5.0-8.0 Protein, UA (test code = 57903-2) 30 mg/dL Negative A Glucose, UA (test code = 365) Negative Negative Ketones, UA (test code = 2514-8) Negative Negative Bilirubin, UA (test code = 02354-5) Negative Negative Blood, UA (test code = 09533-3) Small Negative A Nitrite, UA (test code = 5802-4) Negative Negative Leukocytes, UA (test code = 5799-2) Negative Negative Urobilinogen, UA (test code = 96782-1) 0.2 0.2-1.0 RBC, UA (test code = 69769-9) 51 See_Comment [Automated message] The system which [...] Occasional Squam Epithel, UA (test code = 23491-5) See_Comment [Automated message] The system which generated this result transmitted reference range: /HPF. The reference range was not used to interpret this result as normal/abnormal. Specimen Source (test code = 2795) LYNDSAY (test code = LYNDSAY) After School Program Assistant ID - [auto]After School Program Assistant ID - tech Lab Interpretation (test code = 72294-1) [facility] Culture 2023-03-30 08:43:51* Test Item Value Reference Range Interpretation Comme nts Color, UA (test code = 5778-6) Yellow Clarity, UA (test code = 5767-9) Clear Specific [place], UA (test code = 5811-5) 1.033 1.001-1.035 pH, UA (test code = 5803-2) 6.0 5.0-8.0 Protein, UA (test code = 72145-4) 30 mg/dL Negative A Glucose, UA (test code = 365) Negative Negative Ketones, UA (test code = 2514-8) Negative Negative Bilirubin, UA (test code = 18858-0) Negative Negative Blood, UA (test code = 85349-2) Small Negative A Nitrite, UA (test code = 5802-4) Negative Negative Leukocytes, UA (test code = 5799-2) Negative Negative Urobilinogen, UA (test code = 95780-9) 0.2 0.2-1.0 RBC, UA (test code = 17553-5) 51 See_Comment [Automated message] The system which [...] Occasional Squam Epithel, UA (test code = 41618-8) See_Comment [Automated message] The system which generated this result transmitted reference range: /HPF. The reference range was not used to interpret this result as normal/abnormal. Specimen Source (test code = 2795) LYNDSAY (test code = LYNDSAY) After School Program Assistant ID - [auto]After School Program Assistant ID - tech Lab Interpretation (test code = 74804-9) [facility] Ref[facility] Culture 2023-03-30 08:43:51* Test Item Value Reference Range Interpretation Comme nts Color, UA (test code = 5778-6) Yellow Clarity, UA (test code = 5767-9) Clear Specific [place], UA (test code = 5811-5) 1.033 1.001-1.035 pH, UA (test code = 5803-2) 6.0 5.0-8.0 Protein, UA (test code = 07567-2) 30 mg/dL Negative A Glucose, UA (test code = 365) Negative Negative Ketones, UA (test code = 2514-8) Negative Negative Bilirubin, UA (test code = 32884-4) Negative Negative Blood, UA (test code = 12403-6) Small Negative A Nitrite, UA (test code = 5802-4) Negative Negative Leukocytes, UA (test code = 5799-2) Negative Negative Urobilinogen, UA (test code = 26353-3) 0.2 0.2-1.0 RBC, UA (test code = 30229-2) 51 See_Comment [Automated message] The system which [...] Occasional Squam Epithel, UA (test code = 42038-3) See_Comment [Automated message] The system which generated this result transmitted reference range: /HPF. The reference range was not used to interpret this result as normal/abnormal. Specimen Source (test code = 2795) LYNDSAY (test code = LYNDSAY) After School Program Assistant ID - [auto]After School Program Assistant ID - tech Lab Interpretation (test code = 44226-9) [facility] Reflex [facility] Culture 2023-03-30 08:43:51* Test Item Value Reference Range Interpretation Comme nts Color, UA (test code = 5778-6) Yellow Clarity, UA (test code = 5767-9) Clear Specific [place], UA (test code = 5811-5) 1.033 1.001-1.035 pH, UA (test code = 5803-2) 6.0 5.0-8.0 Protein, UA (test code = 05117-0) 30 mg/dL Negative A Glucose, UA (test code = 365) Negative Negative Ketones, UA (test code = 2514-8) Negative Negative Bilirubin, UA (test code = 74145-8) Negative Negative Blood, UA (test code = 12935-5) Small Negative A Nitrite, UA (test code = 5802-4) Negative Negative Leukocytes, UA (test code = 5799-2) Negative Negative Urobilinogen, UA (test code = 02221-7) 0.2 0.2-1.0 RBC, UA (test code = 42404-7) 51 See_Comment [Automated message] The system which [...] Occasional Squam Epithel, UA (test code = 78406-9) See_Comment [Automated message] The system which generated this result transmitted reference range: /HPF. The reference range was not used to interpret this result as normal/abnormal. Specimen Source (test code = 2795) LYNDSAY (test code = LYNDSAY) After School Program Assistant ID - [auto]After School Program Assistant ID - tech Lab Interpretation (test code = 32958-8) [facility] Reflex [facility] Culture 2023-03-30 08:43:51* Test Item Value Reference Range Interpretation Comme nts Color, UA (test code = 5778-6) Yellow Clarity, UA (test code = 5767-9) Clear Specific [place], UA (test code = 5811-5) 1.033 1.001-1.035 pH, UA (test code = 5803-2) 6.0 5.0-8.0 Protein, UA (test code = 20818-5) 30 mg/dL Negative A Glucose, UA (test code = 365) Negative Negative Ketones, UA (test code = 2514-8) Negative Negative Bilirubin, UA (test code = 94535-3) Negative Negative Blood, UA (test code = 48095-7) Small Negative A Nitrite, UA (test code = 5802-4) Negative Negative Leukocytes, UA (test code = 5799-2) Negative Negative Urobilinogen, UA (test code = 99635-2) 0.2 0.2-1.0 RBC, UA (test code = 55394-9) 51 See_Comment [Automated message] The system which [...] Occasional Squam Epithel, UA (test code = 02865-4) See_Comment [Automated message] The system which generated this result transmitted reference range: /HPF. The reference range was not used to interpret this result as normal/abnormal. Specimen Source (test code = 2795) LYNDSAY (test code = LYNDSAY) After School Program Assistant ID - [auto]After School Program Assistant ID - tech Lab Interpretation (test code = 92953-6) [facility] Reflex [facility] Culture 2023-03-30 08:43:51* Test Item Value Reference Range Interpretation Comme nts Color, UA (test code = 5778-6) Yellow Clarity, UA (test code = 5767-9) Clear Specific [place], UA (test code = 5811-5) 1.033 1.001-1.035 pH, UA (test code = 5803-2) 6.0 5.0-8.0 Protein, UA (test code = 66999-6) 30 mg/dL Negative A Glucose, UA (test code = 365) Negative Negative Ketones, UA (test code = 2514-8) Negative Negative Bilirubin, UA (test code = 82366-8) Negative Negative Blood, UA (test code = 29648-0) Small Negative A Nitrite, UA (test code = 5802-4) Negative Negative Leukocytes, UA (test code = 5799-2) Negative Negative Urobilinogen, UA (test code = 26440-5) 0.2 0.2-1.0 RBC, UA (test code = 58165-6) 51 See_Comment [Automated message] The system which [...] Occasional Squam Epithel, UA (test code = 13816-9) See_Comment [Automated message] The system which generated this result transmitted reference range: /HPF. The reference range was not used to interpret this result as normal/abnormal. Specimen Source (test code = 2795) LYNDSAY (test code = LYNDSAY) After School Program Assistant ID - [auto]After School Program Assistant ID - tech Lab Interpretation (test code = 21947-6) [facility] Reflex to Culture 2023-03-30 08:43:51* Test Item Value Reference Range Interpretation Comme nts Color, UA (test code = 5778-6) Yellow Clarity, UA (test code = 5767-9) Clear Specific [place], UA (test code = 5811-5) 1.033 1.001-1.035 pH, UA (test code = 5803-2) 6.0 5.0-8.0 Protein, UA (test code = 50142-6) 30 mg/dL Negative A Glucose, UA (test code = 365) Negative Negative Ketones, UA (test code = 2514-8) Negative Negative Bilirubin, UA (test code = 72537-4) Negative Negative Blood, UA (test code = 51194-9) Small Negative A Nitrite, UA (test code = 5802-4) Negative Negative Leukocytes, UA (test code = 5799-2) Negative Negative Urobilinogen, UA (test code = 24461-8) 0.2 0.2-1.0 RBC, UA (test code = 79070-4) 51 See_Comment [Automated message] The system which [...] Occasional Squam Epithel, UA (test code = 75435-3) See_Comment [Automated message] The system which generated this result transmitted reference range: /HPF. The reference range was not used to interpret this result as normal/abnormal. Specimen Source (test code = 2795) LYNDSAY (test code = LYNDSAY) After School Program Assistant ID - [auto]After School Program Assistant ID - tech Lab Interpretation (test code = 04370-8) [facility] Reflex [facility] Culture 2023-03-30 08:43:51* Test Item Value Reference Range Interpretation Comme nts Color, UA (test code = 5778-6) Yellow Clarity, UA (test code = 5767-9) Clear Specific [place], UA (test code = 5811-5) 1.033 1.001-1.035 pH, UA (test code = 5803-2) 6.0 5.0-8.0 Protein, UA (test code = 37178-1) 30 mg/dL Negative A Glucose, UA (test code = 365) Negative Negative Ketones, UA (test code = 2514-8) Negative Negative Bilirubin, UA (test code = 32070-7) Negative Negative Blood, UA (test code = 99266-9) Small Negative A Nitrite, UA (test code = 5802-4) Negative Negative Leukocytes, UA (test code = 5799-2) Negative Negative Urobilinogen, UA (test code = 91692-4) 0.2 0.2-1.0 RBC, UA (test code = 21418-7) 51 See_Comment [Automated message] The system which [...] Occasional Squam Epithel, UA (test code = 23845-3) See_Comment [Automated message] The system which generated this result transmitted reference range: /HPF. The reference range was not used to interpret this result as normal/abnormal. Specimen Source (test code = 2795) LYNDSAY (test code = LYNDSAY) After School Program Assistant ID - [auto]After School Program Assistant ID - tech Lab Interpretation (test code = 60910-1) [facility] Reflex [facility] Culture 2023-03-30 08:43:51* Test Item Value Reference Range Interpretation Comme nts Color, UA (test code = 5778-6) Yellow Clarity, UA (test code = 5767-9) Clear Specific [place], UA (test code = 5811-5) 1.033 1.001-1.035 pH, UA (test code = 5803-2) 6.0 5.0-8.0 Protein, UA (test code = 18526-7) 30 mg/dL Negative A Glucose, UA (test code = 365) Negative Negative Ketones, UA (test code = 2514-8) Negative Negative Bilirubin, UA (test code = 27486-1) Negative Negative Blood, UA (test code = 78244-4) Small Negative A Nitrite, UA (test code = 5802-4) Negative Negative Leukocytes, UA (test code = 5799-2) Negative Negative Urobilinogen, UA (test code = 50395-1) 0.2 0.2-1.0 RBC, UA (test code = 39839-9) 51 See_Comment [Automated message] The system which [...] Occasional Squam Epithel, UA (test code = 74962-9) See_Comment [Automated message] The system which generated this result transmitted reference range: /HPF. The reference range was not used to interpret this result as normal/abnormal. Specimen Source (test code = 2795) LYNDSAY (test code = LYNDSAY) After School Program Assistant ID - [auto]After School Program Assistant ID - tech Lab Interpretation (test code = 74003-1) [facility] Ref[facility] Culture 2023-03-30 08:43:51* Test Item Value Reference Range Interpretation Comme nts Color, UA (test code = 5778-6) Yellow Clarity, UA (test code = 5767-9) Clear Specific [place], UA (test code = 5811-5) 1.033 1.001-1.035 pH, UA (test code = 5803-2) 6.0 5.0-8.0 Protein, UA (test code = 36480-7) 30 mg/dL Negative A Glucose, UA (test code = 365) Negative Negative Ketones, UA (test code = 2514-8) Negative Negative Bilirubin, UA (test code = 08604-2) Negative Negative Blood, UA (test code = 20935-7) Small Negative A Nitrite, UA (test code = 5802-4) Negative Negative Leukocytes, UA (test code = 5799-2) Negative Negative Urobilinogen, UA (test code = 12266-8) 0.2 0.2-1.0 RBC, UA (test code = 18487-9) 51 See_Comment [Automated message] The system which [...] Occasional Squam Epithel, UA (test code = 99567-0) See_Comment [Automated message] The system which generated this result transmitted reference range: /HPF. The reference range was not used to interpret this result as normal/abnormal. Specimen Source (test code = 2795) LYNDSAY (test code = LYNDSAY) After School Program Assistant ID - [auto]After School Program Assistant ID - tech Lab Interpretation (test code = 89955-0) [facility] Reflex [facility] Culture 2023-03-30 08:43:51* Test Item Value Reference Range Interpretation Comme nts Color, UA (test code = 5778-6) Yellow Clarity, UA (test code = 5767-9) Clear Specific [place], UA (test code = 5811-5) 1.033 1.001-1.035 pH, UA (test code = 5803-2) 6.0 5.0-8.0 Protein, UA (test code = 36407-1) 30 mg/dL Negative A Glucose, UA (test code = 365) Negative Negative Ketones, UA (test code = 2514-8) Negative Negative Bilirubin, UA (test code = 55089-9) Negative Negative Blood, UA (test code = 43735-9) Small Negative A Nitrite, UA (test code = 5802-4) Negative Negative Leukocytes, UA (test code = 5799-2) Negative Negative Urobilinogen, UA (test code = 25695-1) 0.2 0.2-1.0 RBC, UA (test code = 80335-3) 51 See_Comment [Automated message] The system which [...] Occasional Squam Epithel, UA (test code = 01744-5) See_Comment [Automated message] The system which generated this result transmitted reference range: /HPF. The reference range was not used to interpret this result as normal/abnormal. Specimen Source (test code = 2795) LYNDSAY (test code = LYNDSAY) After School Program Assistant ID - [auto]After School Program Assistant ID - tech Lab Interpretation (test code = 71791-9) [facility] Ref[facility] Culture 2023-03-30 08:43:51* Test Item Value Reference Range Interpretation Comme nts Color, UA (test code = 5778-6) Yellow Clarity, UA (test code = 5767-9) Clear Specific [place], UA (test code = 5811-5) 1.033 1.001-1.035 pH, UA (test code = 5803-2) 6.0 5.0-8.0 Protein, UA (test code = 34565-5) 30 mg/dL Negative A Glucose, UA (test code = 365) Negative Negative Ketones, UA (test code = 2514-8) Negative Negative Bilirubin, UA (test code = 32213-3) Negative Negative Blood, UA (test code = 31217-7) Small Negative A Nitrite, UA (test code = 5802-4) Negative Negative Leukocytes, UA (test code = 5799-2) Negative Negative Urobilinogen, UA (test code = 03122-9) 0.2 0.2-1.0 RBC, UA (test code = 21153-5) 51 See_Comment [Automated message] The system which [...] Occasional Squam Epithel, UA (test code = 04408-5) See_Comment [Automated message] The system which generated this result transmitted reference range: /HPF. The reference range was not used to interpret this result as normal/abnormal. Specimen Source (test code = 2795) LYNDSAY (test code = LYNDSAY) [employer] Program Assistant ID - [auto]After School Program Assistant ID - tech Lab Interpretation (test code = 57248-2) [facility] 08:43:51* Test Item Value Reference Range Interpretation Comme nts Color, UA (test code = 5778-6) Yellow Clarity, UA (test code = 5767-9) Clear Specific [place], UA (test code = 5811-5) 1.033 1.001-1.035 pH, UA (test code = 5803-2) 6.0 5.0-8.0 Protein, UA (test code = 53081-6) 30 mg/dL Negative A Glucose, UA (test code = 365) Negative Negative Ketones, UA (test code = 2514-8) Negative Negative Bilirubin, UA (test code = 71721-8) Negative Negative Blood, UA (test code = 20838-7) Small Negative A Nitrite, UA (test code = 5802-4) Negative Negative Leukocytes, UA (test code = 5799-2) Negative Negative Urobilinogen, UA (test code = 99450-5) 0.2 0.2-1.0 RBC, UA (test code = 52246-3) 51 See_Comment [Automated message] The system which [...] Occasional Squam Epithel, UA (test code = 54845-9) See_Comment [Automated message] The system which generated this result transmitted reference range: /HPF. The reference range was not used to interpret this result as normal/abnormal. Specimen Source (test code = 2795) LYNDSAY (test code = LYNDSAY) After [employer] Program Assistant ID - [auto]After School Program Assistant ID - tech Lab Interpretation (test code = 61706-8) [facility]30 08:43:51* Test Item Value Reference Range Interpretation Comme nts Color, UA (test code = 5778-6) Yellow Clarity, UA (test code = 5767-9) Clear Specific [place], UA (test code = 5811-5) 1.033 1.001-1.035 pH, UA (test code = 5803-2) 6.0 5.0-8.0 Protein, UA (test code = 63242-0) 30 mg/dL Negative A Glucose, UA (test code = 365) Negative Negative Ketones, UA (test code = 2514-8) Negative Negative Bilirubin, UA (test code = 55874-2) Negative Negative Blood, UA (test code = 77378-2) Small Negative A Nitrite, UA (test code = 5802-4) Negative Negative Leukocytes, UA (test code = 5799-2) Negative Negative Urobilinogen, UA (test code = 44659-8) 0.2 0.2-1.0 RBC, UA (test code = 35714-5) 51 See_Comment [Automated message] The system which [...] Occasional Squam Epithel, UA (test code = 91954-2) See_Comment [Automated message] The system which generated this result transmitted reference range: /HPF. The reference range was not used to interpret this result as normal/abnormal. Specimen Source (test code = 2795) LYNDSAY (test code = LYNDSAY) After School Program Assistant ID - [auto]After School Program Assistant ID - tech Lab Interpretation (test code = 54201-2) [facility] Culture 2023-03-30 08:43:51* Test Item Value Reference Range Interpretation Comme nts Color, UA (test code = 5778-6) Yellow Clarity, UA (test code = 5767-9) Clear Specific [place], UA (test code = 5811-5) 1.033 1.001-1.035 pH, UA (test code = 5803-2) 6.0 5.0-8.0 Protein, UA (test code = 78290-0) 30 mg/dL Negative A Glucose, UA (test code = 365) Negative Negative Ketones, UA (test code = 2514-8) Negative Negative Bilirubin, UA (test code = 70795-2) Negative Negative Blood, UA (test code = 61336-4) Small Negative A Nitrite, UA (test code = 5802-4) Negative Negative Leukocytes, UA (test code = 5799-2) Negative Negative Urobilinogen, UA (test code = 69868-4) 0.2 0.2-1.0 RBC, UA (test code = 06986-7) 51 See_Comment [Automated message] The system which [...] Occasional Squam Epithel, UA (test code = 61396-0) See_Comment [Automated message] The system which generated this result transmitted reference range: /HPF. The reference range was not used to interpret this result as normal/abnormal. Specimen Source (test code = 2795) LYNDSAY (test code = LYNDSAY) After School Program Assistant ID - [auto]After School Program Assistant ID - tech Lab Interpretation (test code = 08348-3) [facility] 2023-03-30 08:43:51* Test Item Value Reference Range Interpretation Comme nts Color, UA (test code = 5778-6) Yellow Clarity, UA (test code = 5767-9) Clear Specific [place], UA (test code = 5811-5) 1.033 1.001-1.035 pH, UA (test code = 5803-2) 6.0 5.0-8.0 Protein, UA (test code = 93273-6) 30 mg/dL Negative A Glucose, UA (test code = 365) Negative Negative Ketones, UA (test code = 2514-8) Negative Negative Bilirubin, UA (test code = 98347-1) Negative Negative Blood, UA (test code = 67816-2) Small Negative A Nitrite, UA (test code = 5802-4) Negative Negative Leukocytes, UA (test code = 5799-2) Negative Negative Urobilinogen, UA (test code = 88610-0) 0.2 0.2-1.0 RBC, UA (test code = 91975-6) 51 See_Comment [Automated message] The system which [...] Occasional Squam Epithel, UA (test code = 80660-2) See_Comment [Automated message] The system which generated this result transmitted reference range: /HPF. The reference range was not used to interpret this result as normal/abnormal. Specimen Source (test code = 2795) LYNDSAY (test code = LYNDSAY) After School Program Assistant ID - [auto]After School Program Assistant ID - tech Lab Interpretation (test code = 02884-4) [facility] Culture 2023-03-30 08:43:51* Test Item Value Reference Range Interpretation Comme nts Color, UA (test code = 5778-6) Yellow Clarity, UA (test code = 5767-9) Clear Specific [place], UA (test code = 5811-5) 1.033 1.001-1.035 pH, UA (test code = 5803-2) 6.0 5.0-8.0 Protein, UA (test code = 64276-1) 30 mg/dL Negative A Glucose, UA (test code = 365) Negative Negative Ketones, UA (test code = 2514-8) Negative Negative Bilirubin, UA (test code = 88864-2) Negative Negative Blood, UA (test code = 65614-7) Small Negative A Nitrite, UA (test code = 5802-4) Negative Negative Leukocytes, UA (test code = 5799-2) Negative Negative Urobilinogen, UA (test code = 00088-3) 0.2 0.2-1.0 RBC, UA (test code = 63885-9) 51 See_Comment [Automated message] The system which [...] Occasional Squam Epithel, UA (test code = 54134-3) See_Comment [Automated message] The system which generated this result transmitted reference range: /HPF. The reference range was not used to interpret this result as normal/abnormal. Specimen Source (test code = 2795) LYNDSAY (test code = LYNDSAY) After School Program Assistant ID - [auto]After School Program Assistant ID - tech Lab Interpretation (test code = 84688-5) [facility] Culture 2023-03-30 08:43:51* Test Item Value Reference Range Interpretation Comme nts Color, UA (test code = 5778-6) Yellow Clarity, UA (test code = 5767-9) Clear Specific [place], UA (test code = 5811-5) 1.033 1.001-1.035 pH, UA (test code = 5803-2) 6.0 5.0-8.0 Protein, UA (test code = 86057-7) 30 mg/dL Negative A Glucose, UA (test code = 365) Negative Negative Ketones, UA (test code = 2514-8) Negative Negative Bilirubin, UA (test code = 36795-2) Negative Negative Blood, UA (test code = 34746-6) Small Negative A Nitrite, UA (test code = 5802-4) Negative Negative Leukocytes, UA (test code = 5799-2) Negative Negative Urobilinogen, UA (test code = 00880-6) 0.2 0.2-1.0 RBC, UA (test code = 32284-0) 51 See_Comment [Automated message] The system which [...] Occasional Squam Epithel, UA (test code = 87130-0) See_Comment [Automated message] The system which generated this result transmitted reference range: /HPF. The reference range was not used to interpret this result as normal/abnormal. Specimen Source (test code = 2795) LYNDSAY (test code = LYNDSAY) After School Program Assistant ID - [auto]After School Program Assistant ID - tech Lab Interpretation (test code = 52023-8) [facility] Culture 2023-03-30 08:43:51* Test Item Value Reference Range Interpretation Comme nts Color, UA (test code = 5778-6) Yellow Clarity, UA (test code = 5767-9) Clear Specific [place], UA (test code = 5811-5) 1.033 1.001-1.035 pH, UA (test code = 5803-2) 6.0 5.0-8.0 Protein, UA (test code = 18066-5) 30 mg/dL Negative A Glucose, UA (test code = 365) Negative Negative Ketones, UA (test code = 2514-8) Negative Negative Bilirubin, UA (test code = 08263-7) Negative Negative Blood, UA (test code = 64669-8) Small Negative A Nitrite, UA (test code = 5802-4) Negative Negative Leukocytes, UA (test code = 5799-2) Negative Negative Urobilinogen, UA (test code = 63661-0) 0.2 0.2-1.0 RBC, UA (test code = 52010-9) 51 See_Comment [Automated message] The system which [...] Occasional Squam Epithel, UA (test code = 72901-5) See_Comment [Automated message] The system which generated this result transmitted reference range: /HPF. The reference range was not used to interpret this result as normal/abnormal. Specimen Source (test code = 2795) LYNDSAY (test code = LYNDSAY) After School Program Assistant ID - [auto]After School Program Assistant ID - tech Lab Interpretation (test code = 22072-1) [facility] Culture 2023-03-30 08:43:51* Test Item Value Reference Range Interpretation Comme nts Color, UA (test code = 5778-6) Yellow Clarity, UA (test code = 5767-9) Clear Specific [place], UA (test code = 5811-5) 1.033 1.001-1.035 pH, UA (test code = 5803-2) 6.0 5.0-8.0 Protein, UA (test code = 64986-7) 30 mg/dL Negative A Glucose, UA (test code = 365) Negative Negative Ketones, UA (test code = 2514-8) Negative Negative Bilirubin, UA (test code = 65676-1) Negative Negative Blood, UA (test code = 74337-1) Small Negative A Nitrite, UA (test code = 5802-4) Negative Negative Leukocytes, UA (test code = 5799-2) Negative Negative Urobilinogen, UA (test code = 95024-1) 0.2 0.2-1.0 RBC, UA (test code = 37919-6) 51 See_Comment [Automated message] The system which [...] Occasional Squam Epithel, UA (test code = 80009-8) See_Comment [Automated message] The system which generated this result transmitted reference range: /HPF. The reference range was not used to interpret this result as normal/abnormal. Specimen Source (test code = 2795) LYNDSAY (test code = LYNDSAY) After School Program Assistant ID - [auto]After School Program Assistant ID - tech Lab Interpretation (test code = 13553-5) [facility] Reflex [facility] Culture 2023-03-30 08:43:51* Test Item Value Reference Range Interpretation Comme nts Color, UA (test code = 5778-6) Yellow Clarity, UA (test code = 5767-9) Clear Specific [place], UA (test code = 5811-5) 1.033 1.001-1.035 pH, UA (test code = 5803-2) 6.0 5.0-8.0 Protein, UA (test code = 42346-2) 30 mg/dL Negative A Glucose, UA (test code = 365) Negative Negative Ketones, UA (test code = 2514-8) Negative Negative Bilirubin, UA (test code = 21036-0) Negative Negative Blood, UA (test code = 12949-6) Small Negative A Nitrite, UA (test code = 5802-4) Negative Negative Leukocytes, UA (test code = 5799-2) Negative Negative Urobilinogen, UA (test code = 25165-0) 0.2 0.2-1.0 RBC, UA (test code = 12427-1) 51 See_Comment [Automated message] The system which [...] Occasional Squam Epithel, UA (test code = 51437-7) See_Comment [Automated message] The system which generated this result transmitted reference range: /HPF. The reference range was not used to interpret this result as normal/abnormal. Specimen Source (test code = 2795) LYNDSAY (test code = LYNDSAY) After School Program Assistant ID - [auto]After School Program Assistant ID - tech Lab Interpretation (test code = 94649-8) [facility] Reflex [facility] Culture 2023-03-30 08:43:51* Test Item Value Reference Range Interpretation Comme nts Color, UA (test code = 5778-6) Yellow Clarity, UA (test code = 5767-9) Clear Specific [place], UA (test code = 5811-5) 1.033 1.001-1.035 pH, UA (test code = 5803-2) 6.0 5.0-8.0 Protein, UA (test code = 71341-8) 30 mg/dL Negative A Glucose, UA (test code = 365) Negative Negative Ketones, UA (test code = 2514-8) Negative Negative Bilirubin, UA (test code = 23910-5) Negative Negative Blood, UA (test code = 04845-5) Small Negative A Nitrite, UA (test code = 5802-4) Negative Negative Leukocytes, UA (test code = 5799-2) Negative Negative Urobilinogen, UA (test code = 06048-1) 0.2 0.2-1.0 RBC, UA (test code = 82846-0) 51 See_Comment [Automated message] The system which [...] Occasional Squam Epithel, UA (test code = 42696-8) See_Comment [Automated message] The system which generated this result transmitted reference range: /HPF. The reference range was not used to interpret this result as normal/abnormal. Specimen Source (test code = 2795) LYNDSAY (test code = LYNDSAY) After School Program Assistant ID - [auto]After School Program Assistant ID - tech Lab Interpretation (test code = 41160-4) [facility] Ref[facility] Culture 2023-03-30 08:43:51* Test Item Value Reference Range Interpretation Comme nts Color, UA (test code = 5778-6) Yellow Clarity, UA (test code = 5767-9) Clear Specific [place], UA (test code = 5811-5) 1.033 1.001-1.035 pH, UA (test code = 5803-2) 6.0 5.0-8.0 Protein, UA (test code = 74004-9) 30 mg/dL Negative A Glucose, UA (test code = 365) Negative Negative Ketones, UA (test code = 2514-8) Negative Negative Bilirubin, UA (test code = 28276-0) Negative Negative Blood, UA (test code = 19550-0) Small Negative A Nitrite, UA (test code = 5802-4) Negative Negative Leukocytes, UA (test code = 5799-2) Negative Negative Urobilinogen, UA (test code = 39063-6) 0.2 0.2-1.0 RBC, UA (test code = 84179-0) 51 See_Comment [Automated message] The system which [...] Occasional Squam Epithel, UA (test code = 32803-3) See_Comment [Automated message] The system which generated this result transmitted reference range: /HPF. The reference range was not used to interpret this result as normal/abnormal. Specimen Source (test code = 2795) LYNDSAY (test code = LYNDSAY) After School Program Assistant ID - [auto]After School Program Assistant ID - tech Lab Interpretation (test code = 07418-3) [facility] Ref[facility] Culture 2023-03-30 08:43:51* Test Item Value Reference Range Interpretation Comme nts Color, UA (test code = 5778-6) Yellow Clarity, UA (test code = 5767-9) Clear Specific [place], UA (test code = 5811-5) 1.033 1.001-1.035 pH, UA (test code = 5803-2) 6.0 5.0-8.0 Protein, UA (test code = 12183-8) 30 mg/dL Negative A Glucose, UA (test code = 365) Negative Negative Ketones, UA (test code = 2514-8) Negative Negative Bilirubin, UA (test code = 58917-6) Negative Negative Blood, UA (test code = 28447-0) Small Negative A Nitrite, UA (test code = 5802-4) Negative Negative Leukocytes, UA (test code = 5799-2) Negative Negative Urobilinogen, UA (test code = 88989-0) 0.2 0.2-1.0 RBC, UA (test code = 75960-5) 51 See_Comment [Automated message] The system which [...] Occasional Squam Epithel, UA (test code = 61450-3) See_Comment [Automated message] The system which generated this result transmitted reference range: /HPF. The reference range was not used to interpret this result as normal/abnormal. Specimen Source (test code = 2795) LYNDSAY (test code = LYNDSAY) After School Program Assistant ID - [auto]After School Program Assistant ID - tech Lab Interpretation (test code = 56948-9) [facility] Reflex [facility] Culture 2023-03-30 08:43:51* Test Item Value Reference Range Interpretation Comme nts Color, UA (test code = 5778-6) Yellow Clarity, UA (test code = 5767-9) Clear Specific [place], UA (test code = 5811-5) 1.033 1.001-1.035 pH, UA (test code = 5803-2) 6.0 5.0-8.0 Protein, UA (test code = 55090-3) 30 mg/dL Negative A Glucose, UA (test code = 365) Negative Negative Ketones, UA (test code = 2514-8) Negative Negative Bilirubin, UA (test code = 16153-4) Negative Negative Blood, UA (test code = 31994-0) Small Negative A Nitrite, UA (test code = 5802-4) Negative Negative Leukocytes, UA (test code = 5799-2) Negative Negative Urobilinogen, UA (test code = 61337-3) 0.2 0.2-1.0 RBC, UA (test code = 79412-5) 51 See_Comment [Automated message] The system which [...] Occasional Squam Epithel, UA (test code = 42416-3) See_Comment [Automated message] The system which generated this result transmitted reference range: /HPF. The reference range was not used to interpret this result as normal/abnormal. Specimen Source (test code = 2795) LYNDSAY (test code = LYNDSAY) After School Program Assistant ID - [auto]After School Program Assistant ID - tech Lab Interpretation (test code = 01451-8) [facility] Reflex to Culture 2023-03-30 08:43:51* Test Item Value Reference Range Interpretation Comme nts Color, UA (test code = 5778-6) Yellow Clarity, UA (test code = 5767-9) Clear Specific [place], UA (test code = 5811-5) 1.033 1.001-1.035 pH, UA (test code = 5803-2) 6.0 5.0-8.0 Protein, UA (test code = 87696-5) 30 mg/dL Negative A Glucose, UA (test code = 365) Negative Negative Ketones, UA (test code = 2514-8) Negative Negative Bilirubin, UA (test code = 14986-0) Negative Negative Blood, UA (test code = 07141-3) Small Negative A Nitrite, UA (test code = 5802-4) Negative Negative Leukocytes, UA (test code = 5799-2) Negative Negative Urobilinogen, UA (test code = 72877-1) 0.2 0.2-1.0 RBC, UA (test code = 88668-0) 51 See_Comment [Automated message] The system which [...] Occasional Squam Epithel, UA (test code = 51089-0) See_Comment [Automated message] The system which generated this result transmitted reference range: /HPF. The reference range was not used to interpret this result as normal/abnormal. Specimen Source (test code = 2795) LYNDSAY (test code = LYNDSAY) After School Program Assistant ID - [auto]After School Program Assistant ID - tech Lab Interpretation (test code = 23345-5) [facility] Reflex [facility] Culture 2023-03-30 08:43:51* Test Item Value Reference Range Interpretation Comme nts Color, UA (test code = 5778-6) Yellow Clarity, UA (test code = 5767-9) Clear Specific [place], UA (test code = 5811-5) 1.033 1.001-1.035 pH, UA (test code = 5803-2) 6.0 5.0-8.0 Protein, UA (test code = 86788-5) 30 mg/dL Negative A Glucose, UA (test code = 365) Negative Negative Ketones, UA (test code = 2514-8) Negative Negative Bilirubin, UA (test code = 79805-4) Negative Negative Blood, UA (test code = 73727-6) Small Negative A Nitrite, UA (test code = 5802-4) Negative Negative Leukocytes, UA (test code = 5799-2) Negative Negative Urobilinogen, UA (test code = 32680-9) 0.2 0.2-1.0 RBC, UA (test code = 73524-9) 51 See_Comment [Automated message] The system which [...] Occasional Squam Epithel, UA (test code = 62548-3) See_Comment [Automated message] The system which generated this result transmitted reference range: /HPF. The reference range was not used to interpret this result as normal/abnormal. Specimen Source (test code = 2795) LYNDSAY (test code = LYNDSAY) After School Program Assistant ID - [auto]After School Program Assistant ID - tech Lab Interpretation (test code = 81857-6) [facility] Reflex [facility] Culture 2023-03-30 08:43:51* Test Item Value Reference Range Interpretation Comme nts Color, UA (test code = 5778-6) Yellow Clarity, UA (test code = 5767-9) Clear Specific [place], UA (test code = 5811-5) 1.033 1.001-1.035 pH, UA (test code = 5803-2) 6.0 5.0-8.0 Protein, UA (test code = 97721-2) 30 mg/dL Negative A Glucose, UA (test code = 365) Negative Negative Ketones, UA (test code = 2514-8) Negative Negative Bilirubin, UA (test code = 86574-7) Negative Negative Blood, UA (test code = 09324-6) Small Negative A Nitrite, UA (test code = 5802-4) Negative Negative Leukocytes, UA (test code = 5799-2) Negative Negative Urobilinogen, UA (test code = 60264-3) 0.2 0.2-1.0 RBC, UA (test code = 75567-1) 51 See_Comment [Automated message] The system which [...] Occasional Squam Epithel, UA (test code = 12096-6) See_Comment [Automated message] The system which generated this result transmitted reference range: /HPF. The reference range was not used to interpret this result as normal/abnormal. Specimen Source (test code = 2795) LYNDSAY (test code = LYNDSAY) After School Program Assistant ID - [auto]After School Program Assistant ID - tech Lab Interpretation (test code = 09066-7) [facility] Reflex [facility] Culture 2023-03-30 08:43:51* Test Item Value Reference Range Interpretation Comme nts Color, UA (test code = 5778-6) Yellow Clarity, UA (test code = 5767-9) Clear Specific [place], UA (test code = 5811-5) 1.033 1.001-1.035 pH, UA (test code = 5803-2) 6.0 5.0-8.0 Protein, UA (test code = 36654-9) 30 mg/dL Negative A Glucose, UA (test code = 365) Negative Negative Ketones, UA (test code = 2514-8) Negative Negative Bilirubin, UA (test code = 52924-1) Negative Negative Blood, UA (test code = 83516-6) Small Negative A Nitrite, UA (test code = 5802-4) Negative Negative Leukocytes, UA (test code = 5799-2) Negative Negative Urobilinogen, UA (test code = 75441-2) 0.2 0.2-1.0 RBC, UA (test code = 18115-2) 51 See_Comment [Automated message] The system which [...] Occasional Squam Epithel, UA (test code = 34682-3) See_Comment [Automated message] The system which generated this result transmitted reference range: /HPF. The reference range was not used to interpret this result as normal/abnormal. Specimen Source (test code = 2795) LYNDSAY (test code = LYNDSAY) After School Program Assistant ID - [auto]After School Program Assistant ID - tech Lab Interpretation (test code = 22758-3) [facility] Ref[facility] Culture 2023-03-30 08:43:51* Test Item Value Reference Range Interpretation Comme nts Color, UA (test code = 5778-6) Yellow Clarity, UA (test code = 5767-9) Clear Specific [place], UA (test code = 5811-5) 1.033 1.001-1.035 pH, UA (test code = 5803-2) 6.0 5.0-8.0 Protein, UA (test code = 93449-7) 30 mg/dL Negative A Glucose, UA (test code = 365) Negative Negative Ketones, UA (test code = 2514-8) Negative Negative Bilirubin, UA (test code = 83095-5) Negative Negative Blood, UA (test code = 93102-1) Small Negative A Nitrite, UA (test code = 5802-4) Negative Negative Leukocytes, UA (test code = 5799-2) Negative Negative Urobilinogen, UA (test code = 36795-7) 0.2 0.2-1.0 RBC, UA (test code = 76847-3) 51 See_Comment [Automated message] The system which [...] Occasional Squam Epithel, UA (test code = 40228-8) See_Comment [Automated message] The system which generated this result transmitted reference range: /HPF. The reference range was not used to interpret this result as normal/abnormal. Specimen Source (test code = 2795) LYNDSAY (test code = LYNDSAY) After School Program Assistant ID - [auto]After School Program Assistant ID - tech Lab Interpretation (test code = 82027-1) [facility] Culture 2023-03-30 08:43:51* Test Item Value Reference Range Interpretation Comme nts Color, UA (test code = 5778-6) Yellow Clarity, UA (test code = 5767-9) Clear Specific [place], UA (test code = 5811-5) 1.033 1.001-1.035 pH, UA (test code = 5803-2) 6.0 5.0-8.0 Protein, UA (test code = 61924-4) 30 mg/dL Negative A Glucose, UA (test code = 365) Negative Negative Ketones, UA (test code = 2514-8) Negative Negative Bilirubin, UA (test code = 95646-7) Negative Negative Blood, UA (test code = 41474-8) Small Negative A Nitrite, UA (test code = 5802-4) Negative Negative Leukocytes, UA (test code = 5799-2) Negative Negative Urobilinogen, UA (test code = 01257-5) 0.2 0.2-1.0 RBC, UA (test code = 43962-6) 51 See_Comment [Automated message] The system which [...] Occasional Squam Epithel, UA (test code = 16433-2) See_Comment [Automated message] The system which generated this result transmitted reference range: /HPF. The reference range was not used to interpret this result as normal/abnormal. Specimen Source (test code = 2795) LYNDSAY (test code = LYNDSAY) [employer] Program Assistant ID - [auto]After School Program Assistant ID - tech Lab Interpretation (test code = 24027-3) [facility] 2023-03-30 08:43:51* Test Item Value Reference Range Interpretation Comme nts Color, UA (test code = 5778-6) Yellow Clarity, UA (test code = 5767-9) Clear Specific [place], UA (test code = 5811-5) 1.033 1.001-1.035 pH, UA (test code = 5803-2) 6.0 5.0-8.0 Protein, UA (test code = 53211-0) 30 mg/dL Negative A Glucose, UA (test code = 365) Negative Negative Ketones, UA (test code = 2514-8) Negative Negative Bilirubin, UA (test code = 57161-1) Negative Negative Blood, UA (test code = 70673-0) Small Negative A Nitrite, UA (test code = 5802-4) Negative Negative Leukocytes, UA (test code = 5799-2) Negative Negative Urobilinogen, UA (test code = 12859-5) 0.2 0.2-1.0 RBC, UA (test code = 37578-6) 51 See_Comment [Automated message] The system which [...] Occasional Squam Epithel, UA (test code = 62385-6) See_Comment [Automated message] The system which generated this result transmitted reference range: /HPF. The reference range was not used to interpret this result as normal/abnormal. Specimen Source (test code = 2795) LYNDSAY (test code = LYNDSAY) After School Program Assistant ID - [auto]After School Program Assistant ID - tech Lab Interpretation (test code = 22003-8) [facility] Reflex [facility] Culture 2023-03-30 08:43:51* Test Item Value Reference Range Interpretation Comme nts Color, UA (test code = 5778-6) Yellow Clarity, UA (test code = 5767-9) Clear Specific [place], UA (test code = 5811-5) 1.033 1.001-1.035 pH, UA (test code = 5803-2) 6.0 5.0-8.0 Protein, UA (test code = 89619-1) 30 mg/dL Negative A Glucose, UA (test code = 365) Negative Negative Ketones, UA (test code = 2514-8) Negative Negative Bilirubin, UA (test code = 86019-5) Negative Negative Blood, UA (test code = 22407-4) Small Negative A Nitrite, UA (test code = 5802-4) Negative Negative Leukocytes, UA (test code = 5799-2) Negative Negative Urobilinogen, UA (test code = 45894-8) 0.2 0.2-1.0 RBC, UA (test code = 68628-0) 51 See_Comment [Automated message] The system which [...] Occasional Squam Epithel, UA (test code = 52248-9) See_Comment [Automated message] The system which generated this result transmitted reference range: /HPF. The reference range was not used to interpret this result as normal/abnormal. Specimen Source (test code = 2795) LYNDSAY (test code = LYNDSAY) After School Program Assistant ID - [auto]After School Program Assistant ID - tech Lab Interpretation (test code = 06764-2) [facility] Reflex [facility] Culture 2023-03-30 08:43:51* Test Item Value Reference Range Interpretation Comme nts Color, UA (test code = 5778-6) Yellow Clarity, UA (test code = 5767-9) Clear Specific [place], UA (test code = 5811-5) 1.033 1.001-1.035 pH, UA (test code = 5803-2) 6.0 5.0-8.0 Protein, UA (test code = 02966-4) 30 mg/dL Negative A Glucose, UA (test code = 365) Negative Negative Ketones, UA (test code = 2514-8) Negative Negative Bilirubin, UA (test code = 76235-2) Negative Negative Blood, UA (test code = 47937-8) Small Negative A Nitrite, UA (test code = 5802-4) Negative Negative Leukocytes, UA (test code = 5799-2) Negative Negative Urobilinogen, UA (test code = 51908-4) 0.2 0.2-1.0 RBC, UA (test code = 78847-3) 51 See_Comment [Automated message] The system which [...] Occasional Squam Epithel, UA (test code = 29556-0) See_Comment [Automated message] The system which generated this result transmitted reference range: /HPF. The reference range was not used to interpret this result as normal/abnormal. Specimen Source (test code = 2795) LYNDSAY (test code = LYNDSAY) After School Program Assistant ID - [auto]After School Program Assistant ID - tech Lab Interpretation (test code = 12342-8) [facility] 2023-03-30 08:43:51* Test Item Value Reference Range Interpretation Comme nts Color, UA (test code = 5778-6) Yellow Clarity, UA (test code = 5767-9) Clear Specific [place], UA (test code = 5811-5) 1.033 1.001-1.035 pH, UA (test code = 5803-2) 6.0 5.0-8.0 Protein, UA (test code = 69605-1) 30 mg/dL Negative A Glucose, UA (test code = 365) Negative Negative Ketones, UA (test code = 2514-8) Negative Negative Bilirubin, UA (test code = 26471-6) Negative Negative Blood, UA (test code = 04674-6) Small Negative A Nitrite, UA (test code = 5802-4) Negative Negative Leukocytes, UA (test code = 5799-2) Negative Negative Urobilinogen, UA (test code = 77090-6) 0.2 0.2-1.0 RBC, UA (test code = 68231-6) 51 See_Comment [Automated message] The system which [...] Occasional Squam Epithel, UA (test code = 06037-6) See_Comment [Automated message] The system which generated this result transmitted reference range: /HPF. The reference range was not used to interpret this result as normal/abnormal. Specimen Source (test code = 2795) LYNDSAY (test code = LYNDSAY) After School Program Assistant ID - [auto]After School Program Assistant ID - tech Lab Interpretation (test code = 11292-9) [facility] Reflex to Culture 2023-03-30 08:43:51* Test Item Value Reference Range Interpretation Comme nts Color, UA (test code = 5778-6) Yellow Clarity, UA (test code = 5767-9) Clear Specific [place], UA (test code = 5811-5) 1.033 1.001-1.035 pH, UA (test code = 5803-2) 6.0 5.0-8.0 Protein, UA (test code = 05075-7) 30 mg/dL Negative A Glucose, UA (test code = 365) Negative Negative Ketones, UA (test code = 2514-8) Negative Negative Bilirubin, UA (test code = 54253-9) Negative Negative Blood, UA (test code = 26757-4) Small Negative A Nitrite, UA (test code = 5802-4) Negative Negative Leukocytes, UA (test code = 5799-2) Negative Negative Urobilinogen, UA (test code = 12453-6) 0.2 0.2-1.0 RBC, UA (test code = 51919-2) 51 See_Comment [Automated message] The system which [...] Occasional Squam Epithel, UA (test code = 97452-4) See_Comment [Automated message] The system which generated this result transmitted reference range: /HPF. The reference range was not used to interpret this result as normal/abnormal. Specimen Source (test code = 2795) LYNDSAY (test code = LYNDSAY) After School Program Assistant ID - [auto]After School Program Assistant ID - tech Lab Interpretation (test code = 63180-2) [facility] + Reflex to Culture 2023-03-30 08:43:51* Test Item Value Reference Range Interpretation Comme nts Color, UA (test code = 5778-6) Yellow Clarity, UA (test code = 5767-9) Clear Specific [place], UA (test code = 5811-5) 1.033 1.001-1.035 pH, UA (test code = 5803-2) 6.0 5.0-8.0 Protein, UA (test code = 53712-5) 30 mg/dL Negative A Glucose, UA (test code = 365) Negative Negative Ketones, UA (test code = 2514-8) Negative Negative Bilirubin, UA (test code = 60658-9) Negative Negative Blood, UA (test code = 29952-1) Small Negative A Nitrite, UA (test code = 5802-4) Negative Negative Leukocytes, UA (test code = 5799-2) Negative Negative Urobilinogen, UA (test code = 52850-1) 0.2 0.2-1.0 RBC, UA (test code = 74893-2) 51 See_Comment [Automated message] The system which [...] Occasional Squam Epithel, UA (test code = 25850-1) See_Comment [Automated message] The system which generated this result transmitted reference range: /HPF. The reference range was not used to interpret this result as normal/abnormal. Specimen Source (test code = 2795) LYNDSAY (test code = LYNDSAY) After School Program Assistant ID - [auto]After School Program Assistant ID - tech Lab Interpretation (test code = 06318-3) [facility]FLEX URINE [id number] 08:43:51 * Test Item Value Reference Range [...] < /HPF SOURCE(BEAKER) (test code = 2795) After School Program Assistant ID - [auto]After School Program Assistant ID - techCOMPREHENSIVE METABOLIC [id number] 04:37:29* Test Item Value Reference Range Interpretation [...] GFR is not applicable for dialysis patients After [employer] Program Assistant ID - MATT BPT/SVBQ7667-93-33 04:30:17* Test Item Value Reference Range Interpretation Comme nts PROTIME (BEAKER) (test code = 759) 13.8 seconds 11.9-14.2 INR (BEAKER) (test code = 370) 1.13 See_Comment [Automated [employer]] The system which generated this result transmitted [...] code = 413) 0 /100 WBC 0-0 JVG-[id number] 00:00:00Ordered by an unspecified provider.[facility]KG-[id number] 00:00:00Ordered by an unspecified provider. [facility]-MOEGVNT9989-19-90 00:00:00Ordered by an unspecified provider.[facility] HospitalMAGNESIUM2023-05-25 17:14:06* Test Item Value Reference Range Interpretation Comme nts MAGNESIUM (test code = 3968884860) 1.9 mg/dL 1.7-2.4 Lab Interpretation (test cod e = 13285-2) [facility] (34753[facility]2022-12-11 15:16:25* Test Item Value Reference Range Interpretation Comme nts NA (test code = 0680589753) 139 mmol/L 135-145 K (test code = 9465142997) 3.5 mmol/L 3.5-5.0 CL (test code = 9181285367) 107 mmol/L 98-108 CO2 TOTAL (test code = 5987878720) 24 mmol/L 23-31 AGAP (test code = 8995377984) 8 2-16 BUN (test code = 8915076864) 9 mg/dL 7-23 GLUCOSE (test code = 4674881630) 129 mg/dL 70-110 H CREATININE (test code = 1062353060) 0.68 mg/dL 0.50-1.04 TOTAL BILI (test code = 0329769924) 0.5 mg/dL 0.1-1.1 CALCIUM (test code = 5458766412) 8.9 mg/dL 8.6-10.6 T PROTEIN (test code = 1718563440) 6.3 g/dL 6.3-8.2 ALBUMIN (test code = 3419340665) 3.8 g/dL 3.5-5.0 ALK PHOS (test code = 6543407352) 87 U/L 34-122 ALTv (test code = 1742-6) 24 U/L 5-35 AST(SGOT) (test code = 6872538262) 21 U/L 13-40 eGFR (test code = 8763951942) 91.6 mL/min/1.73m2 LYNDSAY (test code = LYNDSAY) [...] imaging tests). Lab Interpretation (test code = 82724-8) [facility] [id number] 15:10:45* Test Item Value Reference Range Interpretation Comme nts TROPONIN I (test code = 4990968726) 0.015 ng/mL <=0.034 LYNDSAY (test code = [...] of biotin. Lab Interpretation (test code = 66749-9) Normal [facility] CenterN-[facility]MINAL KGO-[id number] 15:07:48* Test Item Value Reference Range Interpretation Comme nts NT-proBNP (test code = 5343940422) 1460 pg/mL <=125 H LYNDSAY (test code = LYNDSAY) Biotin has been reported to cause a negative bias, interpret results relative to patient's use of biotin. Lab Interpretation (test code = 05279-9) Abnormal [facility] CenterD-MZJOT9704-83-32 14:45:24* Test Item Value Reference Range Interpretation Comments D-DIMER (test code = 3568539175) 0.99 See_Comment H [Automated message] The system [...] a diagnosis. Lab Interpretation (test code = 85874-5) Abnormal [facility] WITH [id number] 14:14:48* Test Item Value Reference Range Interpretation Comme nts WBC (test code = 6690-2) 7.86 See_Comment [Automated [employer]] The system which generated this result transmitted reference range: 4.30 - 11.10 10*3/?L. The reference range was not used to interpret this result as normal/abnormal. RBC (test code = 789-8) 5.13 See_Comment [Automated [employer]] The system which generated this result transmitted [...] g/dL 31.6-35.1 L RDW-SD (test code = 11532-7) 47.8 fL 39.0-49.9 RDW-CV (test code = 788-0) 16.9 % 12.0-15.5 H PLT (test code = 777-3) 507 See_Comment H [Automated [employer]] The system which generated this result transmitted reference range: 166 - 358 10*3/?L. The reference range was not used to interpret this result as normal/abnormal. MPV (test code = 90301-6) 8.2 fL 9.5-12.9 L NRBC/100 WBC (test code = 1693061594) 0.0 See_Comment [Automated me ssage] The system which generated this result transmitted reference range: 0.0 - 10.0 /100 WBCs. The reference range was not used to interpret this result as normal/abnormal. NRBC x10^3 (test code = 0531206414) See_Comment [Automated messa ge] The system which generated this result transmitted reference range: 10*3/?L. The reference range was not used to interpret this result as normal/abnormal. GRAN MAT (NEUT) % (test code = 770-8) 64.5 % IMM GRAN % (test code = 6035770363) 0.30 % LYMPH % (test code = 736-9) 25.6 % MONO % (test code = 5905-5) 7.5 % EOS % (test code = 713-8) 1.0 % BASO % (test code = 706-2) 1.1 % GRAN MAT x10^3(ANC) (test code = 3254593912) 5.07 10*3/uL 1.88-7.09 IMM GRAN x10^3 (test code = 9634883317) 0.00-0.06 LYMPH x10^3 (test code = 731-0) 2.01 10*3/uL 1.32-3.29 MONO x10^3 (test code = 742-7) 0.59 10*3/uL 0.33-0.92 EOS x10^3 (test code = 711-2) 0.08 10*3/uL 0.03-0.39 BASO x10^3 (test code = 704-7) 0.09 10*3/uL 0.01-0.07 H Lab Interpretation (test code = 93631-6) [facility]normal [facility]PR[facility] 13:17:22* Test Item Value Reference Range Interpretation Comme nts RPR SCREEN (BEAKER) (test co de = 420) Nonreactive Nonreactive HEMOGLOBIN [id number] 10:39:49* Test Item Value Reference Range Interpretation Comme nts HEMOGLOBIN A1C ELECTROPHORESIS (LATOYA) (test code = 3811) 5.8 % See_Comment H [Automated me ssage] The system which generated this result transmitted reference range: <=5.6%. The reference range was not used to interpret this result as normal/abnormal. "The A1c is measured using a [facility]-certified method. HbA1c value equal to or greater than 6.5% as the diagnosis cutoff for diabetes. An HbA1c value of 5.7- 6.4% indicates increased risk for diabetes (prediabetes)."After [employer] Program Assistant ID - ADM VITAMIN [id number] 22:48:27* Test Item Value Reference Range Interpretation Comme nts VITAMIN B12 (LINNEAAKER) (test c ode = 774) 227 pg/mL 213-816 After School Program Assistant ID - MARCOTSH/FREE T4 IF KORQIGGCM1508-29-68 22:08:28* Test Item Value Reference Range Interpretation Comme nts THYROID STIMULATING HORMONE (LINNEAAKER) (test code = 772) 3.309 uIU/mL 0.350-4.940 After School Program Assistant ID - JSHIV-1 ANTIGEN WITH HIV-1/2 [id number] 22:08:28* Test Item Value Reference Range Interpretation Comme nts HIV-1 ANTIGEN WITH HIV 1\\T\\2 ANTIBODY (2) (BEAKER) (test code = 2586) Nonreactive Nonreactive After [employer] Program Assistant ID - JSC-REACTIVE [id number] 21:49:44* Test Item Value Reference Range Interpretation Comme nts C-REACTIVE PROTEIN (BEAKER) (test code = 676) 0.35 mg/dL 0.00-0.50 After School Program Assistant ID - JSCOMPREHENSIVE METABOLIC [id number] 21:49:43* Test Item Value Reference Range Interpretation [...] GFR is not applicable for dialysis patients After School Program Assistant ID - JSLIPID [id number] 21:49:43* Test Item Value Reference Range Interpretation [...] Borderline 130-159 High 160-189 Very High >=190 After School Program Assistant ID - JSCBC W/PLT COUNT & AUTO [id number] 21:34:03* Test Item Value Reference Range Interpretation [...] Interpretation Comme nts Height (test code = 5602206787) in Weight (test code = 2704259332) lbs Systolic BP (test code = 3902989867) mmHg Diastolic BP (test code = 5451984244) mmHg Heart Rate (test code = 6349657957) bpm BSA (test code = 6859927986) 2.00 m2 Ao root diam (test code = 4285075414) 3.20 cm Aortic root (test code = 5694941501) 3.2 cm Ao root annulus (test code = 6351895982) 3.2 cm LVOT diameter (test code = 5532792567) 1.99 cm LVOT area (test code = 2935903340) 3.10 cm2 LVIDD (test code = 2963171502) 5.10 cm Left Ventricular End Diastolic Volume by Teichholz Method (test code = 1349226) 123.0 mL IVS (test code = 0082424974) 1.34 cm Interventricular Septum Diastolic Thickness by 2D (test code = 6853753) 1.34 cm LVPWD (test code = 4927340886) 1.34 cm PW (test code = 2725007993) 1.34 cm 0.6-1.1 EF(Teich) (test code = 2140027515) 41.80 % LVIDS (test code = 5380212732) 4.00 cm Left Ventricular End Systolic Volume by Teichholz Method (test code = 3641340) 71.5 mL FS (test code = 4671122009) 21 % EF - 2D (test code = 74691600) 41.80 % LA size (test code = 1662783250) 4.6 cm Pulmonic Regurgitant End Max Velocity (test code = 5189670271) 119.4 cm/s LAV(MOD-sp4) (test code = 9953638048) 95.00 mL E wave decelartion time (test code = 2322503648) 0.15 s MV stenosis pressure 1/2 time (test code = 7954134411) 45.6 ms MV Peak A Evette (test code = 4304838349) 123.8 cm/s MV Peak E Evette (test code = 0553615871) 109.7 cm/s E/A ratio (test code = 5389077072) ratio MR max PG (test code = 2261522867) 87.20 mm[Hg] MR max evette (test code = 6971009916) 466.90 cm/s Mr max evette (test code = 1809524286) 466.9 m/s MV Prop V (test code = 0584900403) 51.00 cm/s MV E/e' septal (test code = 6136777138) 8.1 cm/s Tapse (test code = 1433127805) 2.21 cm LVOT stroke volume (test code = 6784578746) 49.80 cm3 LVOT peak evette (test code = 7949653744) 89.1 cm/s LVOT mn grad (test code = 3021084388) mmHg AV LVOT peak gradient (test code = 1106539120) mmHg LVOT peak VTI (test code = 6404842263) 16.0 cm LV V1 mean (test code = 9383797129) 64.30 cm/s Aortic valve mean velocity (test code = 9278687828) 133.8 cm/s Ao peak evette (test code = 3852079919) 175.3 cm/s Ao VTI (test code = 5892010610) 32.2 cm AV area by cont VTI (test code = 0114719744) 1.6 cm2 AV area peak evette (test code = 1500722446) 1.6 cm2 Ao max PG (test code = 9485754876) 12.30 mm[Hg] AV peak gradient (test code = 0874659939) mmHg AV valve area (test code = 6320456210) 1.55 cm2 AV mean gradient (test code = 1991168112) mmHg AV regurgitation pressure 1/2 time (test code = 8782907105) 358.5 ms AI dec slope (test code = 1008538906) 364.20 cm/s2 AI max evette (test code = 8349854905) 445.80 cm/s AI max PG (test code = 0386001903) 79.50 mm[Hg] Radiology Study observation (narrative) (test code = 75061-5) LYNDSAY (test code = LYNDSAY) ?Left?Ventricle: Left [...] mL of Lumason ultrasound enhancing agent used. [facility]2022-[facility]-01 10:43:32* Test Item Value Reference Range Interpretation Comme nts POCT GLU (test code = 0875748336) 148 mg/dL 70-110 H Lab Interpretation (test cod e = 61000-4) Abnormal [facility] CenterACTIVATED PARTIAL THRMPLAS [id number] 18:39:45* Test Item Value Reference Range Interpretation Comme nts APTT Patient (test code = 3173-2) See_Comment [Automated message] The system which generated this result transmitted reference range: 23 - 38 Seconds. The reference range was not used to interpret this result as normal/abnormal. LYNDSAY (test code = LYNDSAY) The [facility] patient population mean normal value for aPTT is 30 seconds. Lab Interpretation (test code = 53173-2) Normal [facility] CenterPROTHROMBIN TIME / [id number] 18:37:42* Test Item Value Reference Range Interpretation Comme nts PROTIME PATIENT (test code = 5964-2) See_Comment [Automated Summifya ge] The system which generated this result transmitted reference range: 12.0 - 14.7 Seconds. The reference range was not used to interpret this result as normal/abnormal. INR (test code = 6301-6) Normal INR <1.1; Warfarin Therapeutic range 2.0 to 3.0 or 2.5 to 3.5, depending upon the indications. Lab Interpretation (test code = 84445-8) Normal [facility] CenterTR[facility] [id number] 18:32:01* Test Item Value Reference Range Interpretation Comments TROPONIN I (test code = 0636784953) 0.019 ng/mL See_Comment [Automated message] The system [...] of biotin. Lab Interpretation (test code = 14409-4) Normal [facility] CenterN-TERMINAL DRN-[id number] 18:29:01* Test Item Value Reference Range Interpretation Comme nts NT-proBNP (test code = 7375948028) 2770 pg/mL See_Comment H [Automated message] The system which generated this result transmitted reference range: <=125. The reference range was not used to interpret this result as normal/abnormal. LYNDSAY (test code = LYNDSAY) Biotin has been reported to cause a negative bias, interpret results relative to patient's use of biotin. Lab Interpretation (test code = 89823-9) Abnormal [facility]. METABOLIC PANEL (76243)2022-07-31 18:21:42* Test Item Value Reference Range Interpretation Comme nts NA (test code = 6950781630) 136 mmol/L 135-145 K (test code = 2632645137) 4.6 mmol/L 3.5-5.0 CL (test code = 0007349634) 104 mmol/L 98-108 CO2 TOTAL (test code = 5545474527) 26 mmol/L 23-31 AGAP (test code = 5973233096) 2-16 BUN (test code = 6315890523) 9 mg/dL 7-23 GLUCOSE (test code = 0328624545) 97 mg/dL 70-110 CREATININE (test code = 0336178448) 0.64 mg/dL 0.50-1.04 TOTAL BILI (test code = 6744688945) 0.5 mg/dL 0.1-1.1 CALCIUM (test code = 7905796434) 8.2 mg/dL 8.6-10.6 L T PROTEIN (test code = 4156898395) 6.5 g/dL 6.3-8.2 ALBUMIN (test code = 4953022256) 3.9 g/dL 3.5-5.0 ALK PHOS (test code = 8870049208) 93 U/L 34-122 ALTv (test code = 1742-6) 18 U/L 5-35 AST(SGOT) (test code = 3572611386) 19 U/L 13-40 eGFR (test code = 7641289763) mL/min/1.73m2 LYNDSAY (test code = LYNDSAY) Association [...] imaging tests). Lab Interpretation (test code = 19398-6) Abnormal [facility] CenterLIPASE2023-01-12 18:21:01* Test Item Value Reference Range Interpretation Comme nts LIPASE (test code = 2818648815) 54 U/L 0-220 Lab Interpretation (test cod e = 69608-6) Normal [facility] WITH [id number] 18:07:00* Test Item Value Reference Range Interpretation Comme nts WBC (test code = 6690-2) See_Comment [Automated [facility] [employer]] The system which generated this result transmitted reference range: 4.30 - 11.10 10*3/?L. The reference range was not used to interpret this result as normal/abnormal. RBC (test code = 789-8) See_Comment [Automated [employer]] The system which generated this result transmitted [...] g/dL 31.6-35.1 L RDW-SD (test code = 15794-3) 53.1 fL 39.0-49.9 H RDW-CV (test code = 788-0) 17.0 % 12.0-15.5 H PLT (test code = 777-3) See_Comment H [Automated messa ge] The system which generated this result transmitted reference range: 166 - 358 10*3/?L. The reference range was not used to interpret this result as normal/abnormal. MPV (test code = 53876-5) 8.2 fL 9.5-12.9 L NRBC/100 WBC (test code = 9254412221) See_Comment [Automated JUNTA.CL ssage] The system which generated this result transmitted reference range: 0.0 - 10.0 /100 WBCs. The reference range was not used to interpret this result as normal/abnormal. NRBC x10^3 (test code = 8286200728) See_Comment [Automated messa ge] The system which generated this result transmitted reference range: 10*3/?L. The reference range was not used to interpret this result as normal/abnormal. GRAN MAT (NEUT) % (test code = 770-8) 64.0 % IMM GRAN % (test code = 0593263435) 0.40 % LYMPH % (test code = 736-9) 27.3 % MONO % (test code = 5905-5) 6.5 % EOS % (test code = 713-8) 1.1 % BASO % (test code = 706-2) 0.7 % GRAN MAT x10^3(ANC) (test code = 9158399319) 5.46 10*3/uL 1.88-7.09 IMM GRAN x10^3 (test code = 2016505613) 0.03 10*3/uL 0.00-0.06 LYMPH x10^3 (test code = 731-0) 2.32 10*3/uL 1.32-3.29 MONO x10^3 (test code = 742-7) 0.55 10*3/uL 0.33-0.92 EOS x10^3 (test code = 711-2) 0.09 10*3/uL 0.03-0.39 BASO x10^3 (test code = 704-7) 0.06 10*3/uL 0.01-0.07 Lab Interpretation (test code = 95314-4) Abnormal [facility] METABOLIC PANEL (NA, K, CL, CO2, GLUCOSE, BUN, CREATININE, CA)2022-05-08 06:37:01* Test Item Value Reference Range Interpretation Comme nts NA (test code = 2954654204) 137 mmol/L 135-145 K (test code = 6101770259) 3.8 mmol/L 3.5-5 CL (test code = 1088404339) 103 mmol/L 98-108 CO2 TOTAL (test code = 0912729014) 24 mmol/L 23-31 AGAP (test code = 1595046706) 2-16 BUN (test code = 0640161548) 13 mg/dL 7-23 GLUCOSE (test code = 2177040175) 90 mg/dL 70-110 CREATININE (test code = 1907307129) 0.69 mg/dL 0.5-1.04 CALCIUM (test code = 3210232001) 8.5 mg/dL 8.6-10.6 L eGFR (test code = 0600080299) mL/min/1.73m2 LYNDSAY (test code = LYNDSAY) Association [...] imaging tests). Lab Interpretation (test code = 41050-9) [facility] 06:37:01* Test Item Value Reference Range Interpretation Comme nts MAGNESIUM (test code = 8042837218) 2.1 mg/dL 1.7-2.4 Lab Interpretation (test cod e = 10996-9) Normal [facility]PHOSPHORUS2022-[facility]-20 06:37:01* Test Item Value Reference Range Interpretation Comme nts PHOSPHORUS (test code = 0478678235) 4.7 mg/dL 2.5-5 Lab Interpretation (test cod e = 91686-8) Normal [facility] CenterCBC WITH [id number] 06:11:54* Test Item Value Reference Range Interpretation Comme nts WBC (test code = 6690-2) See_Comment [Automated [facility] [employer]] The system which generated this result transmitted reference range: 4.30 - 11.10 10*3/?L. The reference range was not used to interpret this result as normal/abnormal. RBC (test code = 789-8) See_Comment [Automated [facility] Pharm[employer]] The system which generated this result transmitted [...] 32.4 g/dL 31.6-35.1 RDW-SD (test code = 26921-3) 51.0 fL 39-49.9 H RDW-CV (test code = 788-0) 16.5 % 12-15.5 H PLT (test code = 777-3) See_Comment H [Automated messa ge] The system which generated this result transmitted reference range: 166 - 358 10*3/?L. The reference range was not used to interpret this result as normal/abnormal. MPV (test code = 17188-6) 8.3 fL 9.5-12.9 L NRBC/100 WBC (test code = 5852447316) See_Comment [Automated JUNTA.CL ssage] The system which generated this result transmitted reference range: 0.0 - 10.0 /100 WBCs. The reference range was not used to interpret this result as normal/abnormal. NRBC x10^3 (test code = 9832203916) See_Comment [Automated messa ge] The system which generated this result transmitted reference range: 10*3/?L. The reference range was not used to interpret this result as normal/abnormal. GRAN MAT (NEUT) % (test code = 770-8) 64.5 % IMM GRAN % (test code = 3700788337) 0.50 % LYMPH % (test code = 736-9) 27.1 % MONO % (test code = 5905-5) 6.6 % EOS % (test code = 713-8) 0.6 % BASO % (test code = 706-2) 0.7 % GRAN MAT x10^3(ANC) (test code = 1589409262) 5.28 10*3/uL 1.88-7.09 IMM GRAN x10^3 (test code = 2480438185) 0.04 10*3/uL 0-0.06 LYMPH x10^3 (test code = 731-0) 2.22 10*3/uL 1.32-3.29 MONO x10^3 (test code = 742-7) 0.54 10*3/uL 0.33-0.92 EOS x10^3 (test code = 711-2) 0.05 10*3/uL 0.03-0.39 BASO x10^3 (test code = 704-7) 0.06 10*3/uL 0.01-0.07 Lab Interpretation (test code = 09166-0) [facility]normal [facility] CenterPO[facility] GLU[facility]SE (AUTOMATED)2022-05-07 01:18:10* Test Item Value Reference Range Interpretation Comme nts POCT GLU (test code = 1179940755) 120 mg/dL 70-110 H Lab Interpretation (test cod e = 83778-2) Abnormal [facility] CenterType and Screen - ONCE [id number] 05:46:35* Test Item Value Reference Range Interpretation Comme nts ABO & RH (test code = 20) O POSITIVE Performed at [facility] Laboratory Services [facility] Blood [address] Free: [phone] No. [id number] IAT (test code = 1185) Negative Performed at [facility] Laboratory Services [facility] Blood [address] Free: [phone] No. [id number] [facility] CenterBASIC METABOLIC PANEL (NA, K, CL, CO2, GLUCOSE, BUN, CREATININE, CA)2022-05-05 08:22:57* Test Item Value Reference Range Interpretation Comme nts NA (test code = 4502388029) 136 mmol/L 135-145 K (test code = 6226081350) 4.9 mmol/L 3.5-5 CL (test code = 9775832196) 108 mmol/L 98-108 CO2 TOTAL (test code = 2615266605) 22 mmol/L 23-31 L AGAP (test code = 6921101239) 2-16 BUN (test code = 3787693977) 12 mg/dL 7-23 GLUCOSE (test code = 4142339511) 155 mg/dL 70-110 H CREATININE (test code = 9110736308) 0.63 mg/dL 0.5-1.04 CALCIUM (test code = 4281330345) 8.4 mg/dL 8.6-10.6 L eGFR (test code = 7722228695) mL/min/1.73m2 LYNDSAY (test code = LYNDSAY) Association [...] imaging tests). Lab Interpretation (test code = 66978-9) Abnormal [facility] CenterPROTHROMBIN TIME / [id number] 08:22:37* Test Item Value Reference Range Interpretation Comme [facility] PROTIME PATIENT (test code = 5964-2) See_Comment [[employer]] The system which generated this result transmitted reference range: 10.1 - 12.6 Seconds. The reference range was not used to interpret this result as normal/abnormal. INR (test code = 6301-6) Normal INR <1.1; Warfarin Therapeutic range 2.0 to 3.0 or 2.5 to 3.5, depending upon the indications. Lab Interpretation (test code = 53260-3) Normal [facility] CenteraPTT2022-10-17 08:22:37* Test Item Value Reference Range Interpretation Comme [facility] APTT Patient (test code = 3173-2) See_Comment [Automated messa ge] The system which generated this result transmitted reference range: 26 - 36 Seconds. The reference range was not used to interpret this result as normal/abnormal. Lab Interpretation (test code = 74460-3) Normal [facility] CenterFIBRINOGEN2022-10-17 08:22:37* Test Item Value Reference Range Interpretation Comme nts Fibrinogen (test code = 5430713945) 294 mg/dL 167-453 Lab Interpretation (test cod e = 63954-8) Normal [facility] CenterCB WITH [id number] 08:15:01* Test Item Value Reference Range Interpretation [...] g/dL 31.6-35.1 L RDW-SD (test code = 17440-2) 52.9 fL 39-49.9 H RDW-CV (test code = 788-0) 16.8 % 12-15.5 H PLT (test code = 777-3) See_Comment H [Automated messa ge] The system which generated this result transmitted reference range: 166 - 358 10*3/?L. The reference range was not used to interpret this result as normal/abnormal. MPV (test code = 24028-4) 8.3 fL 9.5-12.9 L NRBC/100 WBC (test code = 4750039157) See_Comment [Automated me ssage] The system which generated this result transmitted reference range: 0.0 - 10.0 /100 WBCs. The reference range was not used to interpret this result as normal/abnormal. NRBC x10^3 (test code = 8491914133) See_Comment [Automated messa ge] The system which generated this result transmitted reference range: 10*3/?L. The reference range was not used to interpret this result as normal/abnormal. GRAN MAT (NEUT) % (test code = 770-8) 86.4 % IMM GRAN % (test code = 4768692221) 0.40 % LYMPH % (test code = 736-9) 11.7 % MONO % (test code = 5905-5) 1.1 % EOS % (test code = 713-8) 0.0 % BASO % (test code = 706-2) 0.4 % GRAN MAT x10^3(ANC) (test code = 0652647008) 6.36 10*3/uL 1.88-7.09 IMM GRAN x10^3 (test code = 5907977072) 0.03 10*3/uL 0-0.06 LYMPH x10^3 (test code = 731-0) 0.86 10*3/uL 1.32-3.29 L MONO x10^3 (test code = 742-7) 0.08 10*3/uL 0.33-0.92 L EOS x10^3 (test code = 711-2) 0.03-0.39 L BASO x10^3 (test code = 704-7) 0.03 10*3/uL 0.01-0.07 Lab Interpretation (test code = 20366-7) Abnormal [facility] CenterVITAMIN D, [id number] 20:14:03* Test Item Value Reference Range Interpretation Comme nts VIT D 25OH (test code = 78378-6) 22 ng/mL 25-80 L LYNDSAY (test code = LYNDSAY) Deficiency: <20 ng/mLInsufficiency: 20-24 ng/mLOptimal: 25-80 ng/mL Lab Interpretation (test code = 75984-2) Abnormal [facility] CenterBASI METABOLIC PANEL (NA, K, CL, CO2, GLUCOSE, BUN, CREATININE, CA)2022-04-15 11:27:57* Test Item Value Reference Range Interpretation Comme nts NA (test code = 9833153704) 138 mmol/L 135-145 K (test code = 8245152173) 3.9 mmol/L 3.5-5 CL (test code = 3913212580) 106 mmol/L 98-108 CO2 TOTAL (test code = 6725725940) 23 mmol/L 23-31 AGAP (test code = 3541819002) 2-16 BUN (test code = 1000458967) 10 mg/dL 7-23 GLUCOSE (test code = 0030191157) 91 mg/dL 70-110 CREATININE (test code = 9662993483) 0.65 mg/dL 0.5-1.04 CALCIUM (test code = 4647357790) 8.1 mg/dL 8.6-10.6 L eGFR (test code = 9269119728) mL/min/1.73m2 LYNDSAY (test code = LYNDSAY) Association [...] imaging tests). Lab Interpretation (test code = 08538-6) Abnormal [facility] CenterSTROKE Protocol - Transthoracic echo (TTE) 2022-04-14 22:07:33* Test Item Value Reference Range Interpretation Comme nts Height (test code = 9006327411) in Weight (test code = 3020272162) lbs Systolic BP (test code = 2124730048) mmHg Diastolic BP (test code = 7318774192) mmHg Heart Rate (test code = 1041766033) bpm BSA (test code = 0812055556) 1.94 m2 TASV (test code = 0477721927) 15.5 cm/s LVIDD (test code = 3990861107) 6.00 cm Left Ventricular End Diastolic Volume by Teichholz Method (test code = 5054370) 183.0 mL IVS (test code = 1516348721) 1.09 cm Interventricular Septum Diastolic Thickness by 2D (test code = 8739164) 1.09 cm LVPWD (test code = 4921322809) 0.94 cm PW (test code = 1415697401) 0.94 cm 0.6-1.1 EF(Teich) (test code = 0014712786) 40.30 % LVIDS (test code = 3964830474) 4.80 cm Left Ventricular End Systolic Volume by Teichholz Method (test code = 1758156) 109.2 mL FS (test code = 5836289981) 20 % EF - 2D (test code = 16548493) 40.30 % LVOT diameter (test code = 8772501914) 2.05 cm LVOT area (test code = 6133079528) 3.30 cm2 Ao root diam (test code = 3334013273) 3.10 cm Aortic root (test code = 4264352683) 3.1 cm Ao root annulus (test code = 0343650867) 3.1 cm LA size (test code = 6833845909) 4.2 cm LAV(MOD-sp4) (test code = 0894550124) 64.90 mL MV Peak A Evette (test code = 2192622111) 115.7 cm/s E wave decelartion time (test code = 0403359851) 0.15 s MV Peak E Evette (test code = 0673664897) 106.2 cm/s E/A ratio (test code = 2499916842) ratio LVOT stroke volume (test code = 6172552500) 48.30 cm3 LVOT peak evette (test code = 2143104635) 78.4 cm/s LVOT mn grad (test code = 4118958480) mmHg AV LVOT peak gradient (test code = 7300834362) mmHg LVOT peak VTI (test code = 8801755899) 14.7 cm LV V1 mean (test code = 6399741166) 51.40 cm/s Ao peak evette (test code = 7914370506) 154.7 cm/s AV area peak evette (test code = 6945891180) 1.7 cm2 Ao max PG (test code = 0895897708) 9.60 mm[Hg] AV peak gradient (test code = 5361051561) mmHg AV regurgitation pressure 1/2 time (test code = 6195550990) 257.3 ms AI dec slope (test code = 8660549763) 498.10 cm/s2 AI max evette (test code = 8945594078) 437.60 cm/s AI max PG (test code = 9132954458) 77.80 mm[Hg] Tapse (test code = 1134316542) 2.19 cm LA Volume Index (BP) (test code = 4387042453) 32.0 mL/m2 LA volume (BP) (test code = 3553135918) 62.1 mL LAV(MOD-sp2) (test code = 6676762532) 52.70 mL A4C EF (test code = 2432421081) 44.80 % EF(sp4-el) (test code = 8694322142) 45.20 % SV(MOD-sp4) (test code = 0542678246) 71.20 mL SV(sp4-el) (test code = 0366159261) 73.90 mL LV Diastolic Volume (BP) (test code = 5244594875) 146.3 mL A2C EF (test code = 5338963513) 52.00 % EF(MOD-bp) (test code = 4524276006) 46.70 % EF(sp2-el) (test code = 3236224367) 52.40 % LV Systolic Volume (BP) (test code = 1877800251) 77.9 mL SV(MOD-bp) (test code = 8338650282) 68.40 mL SV(MOD-sp2) (test code = 9396340396) 69.20 mL EF (test code = 4915706075) Left Ventricular Stroke Volume by 2-D Biplane-MOD (test code = 9864779) 68.4 mL Radiology Study observation (narrative) (test code = 55971-6) LYNDSAY (test code = LYNDSAY) ?Left?Ventricle: Left [...] agent used and saline contrast was performed. [facility] CenterKEPPRA (LEVETIRACETAM)2022-04-14 16:48:36* Test Item Value Reference Range Interpretation Comme nts JUSTINEPPRA (test code = 8854513594) 12-46 L LYNDSAY (test code = LYNDSAY) Therapeutic range: 12-46 ?g/mL ? ?Toxic: Not well established.Test developed and characteristics determined by [facility] Laboratory Services. Lab Interpretation (test code = 75729-9) Abnormal [facility] Metabolic Panel (Na, K, Cl, CO2, Glucose, BUN, Creatinine, Ca)2022-04-14 10:50:11* Test Item Value Reference Range Interpretation Comme nts NA (test code = 0115760451) 136 mmol/L 135-145 K (test code = 1776196274) 3.8 mmol/L 3.5-5 CL (test code = 4630768015) 105 mmol/L 98-108 CO2 TOTAL (test code = 2008148202) 25 mmol/L 23-31 AGAP (test code = 5114299868) 2-16 BUN (test code = 4122061496) 9 mg/dL 7-23 GLUCOSE (test code = 1123649888) 101 mg/dL 70-110 CREATININE (test code = 2636683016) 0.66 mg/dL 0.5-1.04 CALCIUM (test code = 8950288303) 8.1 mg/dL 8.6-10.6 L eGFR (test code = 1009016256) mL/min/1.73m2 LYNDSAY (test code = LYNDSAY) Association [...] imaging tests). Lab Interpretation (test code = 06424-2) Abnormal [facility] CenterMagensium, [id number] 10:50:11* Test Item Value Reference Range Interpretation Comme nts MAGNESIUM (test code = 4344191216) 1.9 mg/dL 1.7-2.4 Lab Interpretation (test cod e = 65151-9) Normal [facility] CenterThyroid Stimulating [id number] 22:21:44 * Test Item Value Reference Range Interpretation Comme nts TSH (test code = 6168140245) See_Comment Biotin has been reported to cause a negative bias, interpret results relative to patient's use of biotin. [Automated message] The system which generated this result transmitted reference range: 0.45 - 4.70 mIU/L. The reference range was not used to interpret this result as normal/abnormal. Lab Interpretation (test code = 42603-8) Normal [facility] CenterGLYCOSYLATED HEMOGLOBIN (A1C)2022-04-13 21:53:43* Test Item Value Reference Range Interpretation Comme nts HGB A1C (test code = 4548-4) 5.8 % 4-5.7 H LYNDSAY (test code = LYNDSAY) Reference RangesNormal: <5.7%Prediabetes: 5.7 - 6.4%Diabetes: > 6.5% Lab Interpretation (test code = 08298-7) Abnormal [facility] CenterFASTING LIPID PANEL (13253)(TOTAL CHOLESTEROL, TRIGLYCERIDES, HDL)2022-04-13 21:34:53* Test Item Value Reference Range Interpretation Comme nts CHOL (test code = 4934928699) 201 mg/dL 120-200 H HDL (test code = 8433319465) 56 mg/dL See_Comment [Automated Summifya ge] The system which generated this result transmitted reference range: >=50. The reference range was not used to interpret this result as normal/abnormal. HDLC RATIO (test code = 5927925088) See_Comment [Automated Summifya ge] The system which generated this result transmitted reference range: <=4.5. The reference range was not used to interpret this result as normal/abnormal. TRIG (test code = 2626536991) 355 mg/dL 30-170 H LDL CHOL (test code = 57758-2) 74 mg/dL See_Comment [Automated [employer] Content Circles] The system which generated this result transmitted reference range: <=160. The reference range was not used to interpret this result as normal/abnormal. VLDL (test code = 5922123872) 71 mg/dL 5-60 H Lab Interpretation (test code = 61977-2) Abnormal [facility] CenterTroponin I - Code Firrja7010-96-77 18:46:27* Test Item Value Reference Range Interpretation Comments TROPONIN I (test code = 9908025619) 0.013 ng/mL See_Comment [Automated message] The system [...] of biotin. Lab Interpretation (test code = 20847-4) Normal [facility] Metabolic Panel (NA, K, CL, CO2, Glucose, BUN, Creatinine, CA) - Code [id number] 18:35:07* Test Item Value Reference Range Interpretation Comme nts NA (test code = 3322025223) 136 mmol/L 135-145 K (test code = 3846652686) 4.3 mmol/L 3.5-5 CL (test code = 8851772043) 105 mmol/L 98-108 CO2 TOTAL (test code = 9777002005) 27 mmol/L 23-31 AGAP (test code = 4245650462) 2-16 BUN (test code = 0655112715) 8 mg/dL 7-23 GLUCOSE (test code = 8427330199) 130 mg/dL 70-110 H CREATININE (test code = 0816433842) 0.75 mg/dL 0.5-1.04 CALCIUM (test code = 2541950801) 8.5 mg/dL 8.6-10.6 L eGFR (test code = 2302015447) mL/min/1.73m2 LYNDSAY (test code = LYNDSAY) Association [...] imaging tests). Lab Interpretation (test code = 94057-2) Abnormal [facility] CenteraPTT - Code Qplkji3236-78-18 18:32:46* Test Item Value Reference Range Interpretation Comme [facility] APTT Patient (test code = 3173-2) See_Comment [Automated message] The system which generated this result transmitted reference range: 23 - 38 Seconds. The reference range was not used to interpret this result as normal/abnormal. LYNDSAY (test code = LYNDSAY) The [facility] patient population mean normal value for aPTT is 30 seconds. Lab Interpretation (test code = 90829-3) Normal [facility] CenterProthrombin Time / INR - Code [id number] 18:30:45* Test Item Value Reference Range Interpretation [...] the indications. Lab Interpretation (test code = 09564-3) Normal [facility] CenterCBC without Diff - Code [id number] 18:23:07* Test Item Value Reference Range Interpretation Comme [facility] WBC (test code = 6690-2) See_Comment [Automated [...] result as normal/abnormal. MPV (test code = 88325-6) 8.1 fL 9.5-12.9 L RDW-CV (test code = 788-0) 16.1 % 12-15.5 H RDW-SD (test code = 58452-6) 49.2 fL 39-49.9 NRBC x10^3 (test code = 2670089722) See_Comment [Automated [employer] Content Circles] The system which generated this result transmitted reference range: 10*3/?L. The reference range was not used to interpret this result as normal/abnormal. NRBC/100 WBC (test code = 4331585230) See_Comment [Automated Summifya ge] The system which generated this result transmitted reference range: 0.0 - 10.0 /100 WBCs. The reference range was not used to interpret this result as normal/abnormal. IPF % (test code = 7426689340) Lab Interpretation (test code = 57001-0) Abnormal [facility] [id number] 21:06:40* Test Item Value Reference Range Interpretation Comments TROPONIN I (test code = 1078914672) 0.005 ng/mL See_Comment [Automated message] The system [...] of biotin. Lab Interpretation (test code = 98308-1) Normal [facility] CenterCOMP. METABOLIC PANEL (07083)2021-11-23 20:55:42* Test Item Value Reference Range Interpretation Comme nts NA (test code = 0302027934) 137 mmol/L 135-145 K (test code = 9323894201) 4.3 mmol/L 3.5-5.0 CL (test code = 8913371024) 104 mmol/L 98-108 CO2 TOTAL (test code = 2619397380) 22 mmol/L 23-31 L AGAP (test code = 1122982126) 2-16 BUN (test code = 0547045670) 15 mg/dL 7-23 GLUCOSE (test code = 2511465668) 114 mg/dL 70-110 H CREATININE (test code = 6277757752) 0.68 mg/dL 0.50-1.04 TOTAL BILI (test code = 7733152591) 0.5 mg/dL 0.1-1.1 CALCIUM (test code = 0418590153) 9.1 mg/dL 8.6-10.6 T PROTEIN (test code = 6497662209) 7.3 g/dL 6.3-8.2 ALBUMIN (test code = 7214801007) 4.4 g/dL 3.5-5.0 ALK PHOS (test code = 2681396763) 243 U/L 34-122 H ALTv (test code = 1742-6) 24 U/L 5-35 AST(SGOT) (test code = 1938413066) 30 U/L 13-40 eGFR (test code = 5997933144) mL/min/1.73m2 LYNDSAY (test code = LYNDSAY) Association [...] imaging tests). Lab Interpretation (test code = 06896-8) Abnormal [facility] CenterLIPASE2022-05-07 20:55:22* Test Item Value Reference Range Interpretation Comme nts LIPASE (test code = 6245294454) 96 U/L 0-220 Lab Interpretation (test cod e = 50035-5) Normal [facility] CenterPOCT [id number] 20:46:00* Test Item Value Reference Range Interpretation Comme nts POCT PREG (test code = 1605) negative On board controls acceptable with C Line (test code = 3574) present POCT PREG LOT # (test code = 3575) [id number] POCT PREG TEST DATE ( test code = 3576) 04/18/2023 Lab Interpretation (test cod e = 06162-4) Normal [facility] CenterCBC WITH [id number] 20:40:38* Test Item Value Reference Range Interpretation Comme nts WBC (test code = 6690-2) See_Comment [Automated Summifya ge] The system which generated this result transmitted reference range: 4.30 - 11.10 10*3/?L. The reference range was not used to interpret this result as normal/abnormal. RBC (test code = 789-8) See_Comment [Automated Summifya ge] The system which generated this result [...] 31.8 g/dL 31.6-35.1 RDW-SD (test code = 43977-8) 53.7 fL 39.0-49.9 H RDW-CV (test code = 788-0) 17.2 % 12.0-15.5 H PLT (test code = 777-3) See_Comment H [Automated messa ge] The system which generated this result transmitted reference range: 166 - 358 10*3/?L. The reference range was not used to interpret this result as normal/abnormal. MPV (test code = 42768-2) 8.5 fL 9.5-12.9 L NRBC/100 WBC (test code = 7698657994) See_Comment [Automated me ssage] The system which generated this result transmitted reference range: 0.0 - 10.0 /100 WBCs. The reference range was not used to interpret this result as normal/abnormal. NRBC x10^3 (test code = 5312664619) <0.01 See_Comment [Automated messa ge] The system which generated this result transmitted reference range: 10*3/?L. The reference range was not used to interpret this result as normal/abnormal. GRAN MAT (NEUT) % (test code = 770-8) 53.7 % IMM GRAN % (test code = 4850532920) 0.90 % LYMPH % (test code = 736-9) 32.6 % MONO % (test code = 5905-5) 10.1 % EOS % (test code = 713-8) 1.5 % BASO % (test code = 706-2) 1.2 % GRAN MAT x10^3(ANC) (test code = 8267304787) 4.98 10*3/uL 1.88-7.09 IMM GRAN x10^3 (test code = 3881103512) 0.08 10*3/uL 0.00-0.06 H LYMPH x10^3 (test code = 731-0) 3.02 10*3/uL 1.32-3.29 MONO x10^3 (test code = 742-7) 0.94 10*3/uL 0.33-0.92 H EOS x10^3 (test code = 711-2) 0.14 10*3/uL 0.03-0.39 BASO x10^3 (test code = 704-7) 0.11 10*3/uL 0.01-0.07 H Lab Interpretation (test code = 81978-9) Abnormal [facility] CenterPOCT GLUCOSE (AUTOMATED)2021-11-23 20:17:33* Test Item Value Reference Range Interpretation Comme [facility] POCT GLU (test code = 0199615698) 111 mg/dL 70-110 H Notified Provide r Lab Interpretation (test code = 00113-8) Abnormal [facility] CenterPAP TEST, THINPREP, [id number] 00:00:00 * Test Item Value Reference Range Interpretation Comme [facility] SOURCE: (test code = 8001) Endocervical SLIDES: (test code = 8011) 1 LMP: (test code = 8021) 06/03/2021 SPECIMEN ADEQUACY: (test code = 53952) (NOTE) INTERPRETATION: (test code = 35933) ASCUS/EPITH. ABNORMALITY; SEE BELOW ENVIRONMENTAL SERVICES ASSOCIATE: (test code = 8101) CHANA Thacker([facility] INTERPRETATION BY: (test code = 8122) Nahid Russell M.D. LOCATION: (test code = 42900) (NOTE) CPT: (test code = 8140) (NOTE) PAP TEST, THINPREP, [id number] 00:00:00* Test Item Value Reference Range Interpretation Comme [facility] SOURCE: (test code = 8001) Endocervical SLIDES: (test code = 8011) 1 LMP: (test code = 8021) 06/03/2021 SPECIMEN ADEQUACY: (test code = 45481) (NOTE) INTERPRETATION: (test code = 07221) ASCUS/EPITH. ABNORMALITY; SEE BELOW ENVIRONMENTAL SERVICES ASSOCIATE: (test code = 8101) CHANA Thacker([facility] INTERPRETATION BY: (test code = 8122) Nahid Russell M.D. LOCATION: (test code = 76858) (NOTE) CPT: (test code = 8140) (NOTE) PAP TEST, THINPREP, [id number] 00:00:00* Test Item Value Reference Range Interpretation Comme nts SOURCE: (test code = 8001) Endocervical SLIDES: (test code = 8011) 1 LMP: (test code = 8021) 06/03/2021 SPECIMEN ADEQUACY: (test code = 20819) (NOTE) INTERPRETATION: (test code = 75699) ASCUS/EPITH. ABNORMALITY; SEE BELOW ENVIRONMENTAL SERVICES ASSOCIATE: (test code = 8101) CHANA Thacker(ASC)[facility] PATHOLOGIST INTERPRETATION BY: (test code = 8122) Nahid Russell M.D. LOCATION: (test code = 87282) (NOTE) CPT: (test code = 8140) (NOTE) PAP TEST, THINPREP, [id number] 00:00:00* Test Item Value Reference Range Interpretation Comme nts SOURCE: (test code = 8001) Endocervical SLIDES: (test code = 8011) 1 LMP: (test code = 8021) 06/03/2021 SPECIMEN ADEQUACY: (test code = 42311) (NOTE) INTERPRETATION: (test code = 25413) ASCUS/EPITH. ABNORMALITY; SEE BELOW ENVIRONMENTAL SERVICES ASSOCIATE: (test code = 8101) CHANA Thacker(ASC)[facility] INTERPRETATION BY: (test code = 8122) Nahid Russell M.D. LOCATION: (test code = 71890) (NOTE) CPT: (test code = 8140) (NOTE) HPV HIGH RISK WITH GENOTYPE, [id number] 00:00:00* Test Item Value Reference Range Interpretation Comme nts HPV HIGH RISK INTERP (test c ode = 10871) POSITIVE HPV 16 (test code = 12248) POSITIVE HPV 18 (test code = 70957) NEGATIVE HPV, HR, OTHER GENOTYPES (te st code = 00076) POSITIVE HPV HIGH RISK WITH GENOTYPE, LD0897-87-23 00:00:00* Test Item Value Reference Range Interpretation Comme nts HPV HIGH RISK INTERP (test c ode = 36001) POSITIVE HPV 16 (test code = 70977) POSITIVE HPV 18 (test code = 41755) NEGATIVE HPV, HR, OTHER GENOTYPES (te st code = 26213) POSITIVE HPV HIGH RISK WITH GENOTYPE, QK4733-32-07 00:00:00* Test Item Value Reference Range Interpretation Comme nts HPV HIGH RISK INTERP (test c ode = 34189) POSITIVE HPV 16 (test code = 30518) POSITIVE HPV 18 (test code = 76178) NEGATIVE HPV, HR, OTHER GENOTYPES (te st code = 25588) POSITIVE HPV HIGH RISK WITH GENOTYPE, [id number] 00:00:00* Test Item Value Reference Range Interpretation Comme nts HPV HIGH RISK INTERP (test c ode = 42228) POSITIVE HPV 16 (test code = 67577) POSITIVE HPV 18 (test code = 40803) NEGATIVE HPV, HR, OTHER GENOTYPES (te st code = 09612) POSITIVE EDDQHONYDI5758-21-35 03:22:48* Test Item Value Reference Range Interpretation Comme nts APPEARANCE (test code = 4765662196) Hazy Clear A COLOR (test code = 6559846155) Yellow Yellow PH (test code = 9401615039) 4.8-8.0 SP GRAVITY (test code = 7695011683) 1.003-1.030 GLU U QUAL (test code = 4216154012) Normal Normal BLOOD (test code = 8723687666) Negative Negative Interference fro m ascorbic acid may cause false negative results. KETONES (test code = 5923336012) 5 mg/dL Negative A PROTEIN (test code = 2887-8) Negative Negative UROBILIN (test code = 1755662025) 4.0 mg/dL Normal A BILIRUBIN (test code = 5918478123) Negative Negative NITRITE (test code = 8250724463) Negative Negative LEUK GRUPO (test code = 4584939541) Negative Negative RBC/HPF (test code = 3684413260) See_Comment [Automated [facility] PharmStat] The system which generated this result transmitted reference range: 0 - 3 HPF. The reference range was not used to interpret this result as normal/abnormal. WBC/HPF (test code = 5145568085) <1 See_Comment [Automated [facility] PharmStat] The system which generated this result transmitted reference range: 0 - 5 HPF. The reference range was not used to interpret this result as normal/abnormal. BACTERIA (test code = 4855216918) Few Negative A SQ EPITH (test code = 2171852002) HPF Lab Interpretation (test code = 28909-9) [facility] 03:22:48* Test Item Value Reference Range Interpretation Comme nts APPEARANCE (test code = 0165331130) Hazy Clear A COLOR (test code = 0622530862) Yellow Yellow PH (test code = 7112859946) 4.8-8.0 SP GRAVITY (test code = 3754053372) 1.003-1.030 GLU U QUAL (test code = 2317614397) Normal Normal BLOOD (test code = 1310447332) Negative Negative KETONES (test code = 0419526548) 5 mg/dL Negative A PROTEIN (test code = 2887-8) Negative Negative UROBILIN (test code = 1370534730) 4.0 mg/dL Normal A BILIRUBIN (test code = 4497086778) Negative Negative NITRITE (test code = 6626058376) Negative Negative LEUK GRUPO (test code = 6210925164) Negative Negative RBC/HPF (test code = 6760192577) See_Comment [Automated Summifya ge] The system which generated this result transmitted reference range: 0 - 3 HPF. The reference range was not used to interpret this result as normal/abnormal. WBC/HPF (test code = 8538918616) <1 See_Comment [Automated Summifya ge] The system which generated this result transmitted reference range: 0 - 5 HPF. The reference range was not used to interpret this result as normal/abnormal. BACTERIA (test code = 2515878154) Few Negative A SQ EPITH (test code = 1495770347) HPF Lab Interpretation (test code = 89753-5) [facility]normal [facility] CenterTR[facility] Y7186-47-52 02:45:00* Test Item Value Reference Range Interpretation Comments TROPONIN I (test code = 6784489930) 0.002 ng/mL See_Comment [Automated message] The system [...] of biotin. Lab Interpretation (test code = 42432-9) Normal [facility]TRAN[facility] M7451-32-06 02:45:00* Test Item Value Reference Range Interpretation Comme nts TROPONIN I (test code = 3856494037) 0.002 ng/mL See_Comment [Automated [facility] PharmStat] The system which generated this result transmitted reference range: <=0.034. The reference range was not used to interpret this result as normal/abnormal. LYNDSAY (test code = LYNDSAY) Lab Interpretation (test code = 22491-6) Normal [facility] CenterN-TERMINAL DEB-QFL9489-15-29 02:41:57* Test Item Value Reference Range Interpretation Comme nts NT-proBNP (test code = 4159144733) 169 pg/mL See_Comment H [Automated message] The system which generated this result transmitted reference range: <=125. The reference range was not used to interpret this result as normal/abnormal. LYNDSAY (test code = LYNDSAY) Biotin has been reported to cause a negative bias, interpret results relative to patient's use of biotin. Lab Interpretation (test code = 72291-9) Abnormal [facility] CenterN-TERMINAL AAE-BVC7563-94-29 02:41:57* Test Item Value Reference Range Interpretation Comme nts NT-proBNP (test code = 8445468955) 169 pg/mL See_Comment H [Automated [employer] Content Circles] The system which generated this result transmitted reference range: <=125. The reference range was not used to interpret this result as normal/abnormal. LYNDSAY (test code = LYNDSAY) Lab Interpretation (test code = 82867-3) Abnormal [facility] CenterCOMP. METABOLIC PANEL (62274)2021-03-17 02:09:13* Test Item Value Reference Range Interpretation Comme nts NA (test code = 8207636994) 137 mmol/L 135-145 K (test code = 5766510201) 4.2 mmol/L 3.5-5.0 CL (test code = 0425587794) 102 mmol/L 98-108 CO2 TOTAL (test code = 7892679485) 25 mmol/L 23-31 AGAP (test code = 1003158685) 2-16 BUN (test code = 3640147830) 18 mg/dL 7-23 GLUCOSE (test code = 0280438930) 144 mg/dL 70-110 H CREATININE (test code = 1173464684) 0.77 mg/dL 0.50-1.04 TOTAL BILI (test code = 1669517645) 0.4 mg/dL 0.1-1.1 CALCIUM (test code = 0762593767) 8.9 mg/dL 8.6-10.6 T PROTEIN (test code = 5887472862) 6.8 g/dL 6.3-8.2 ALBUMIN (test code = 2012695705) 3.9 g/dL 3.5-5.0 ALK PHOS (test code = 8510715870) 84 U/L 34-122 ALTv (test code = 1742-6) 13 U/L 5-35 AST(SGOT) (test code = 7665247489) 17 U/L 13-40 eGFR (test code = 7996257517) mL/min/1.73m2 LYNDSAY (test code = LYNDSAY) Association [...] imaging tests). Lab Interpretation (test code = 87501-6) Abnormal [facility]. METABOLIC PANEL (21632)2021-03-17 02:09:13* Test Item Value Reference Range Interpretation Comme nts NA (test code = 8836356375) 137 mmol/L 135-145 K (test code = 8599792378) 4.2 mmol/L 3.5-5.0 CL (test code = 5292511877) 102 mmol/L 98-108 CO2 TOTAL (test code = 6496377541) 25 mmol/L 23-31 AGAP (test code = 6647328892) 2-16 BUN (test code = 7960926326) 18 mg/dL 7-23 GLUCOSE (test code = 5670929525) 144 mg/dL 70-110 H CREATININE (test code = 7912414333) 0.77 mg/dL 0.50-1.04 TOTAL BILI (test code = 2694405803) 0.4 mg/dL 0.1-1.1 CALCIUM (test code = 8788412993) 8.9 mg/dL 8.6-10.6 T PROTEIN (test code = 0667211657) 6.8 g/dL 6.3-8.2 ALBUMIN (test code = 1738345559) 3.9 g/dL 3.5-5.0 ALK PHOS (test code = 3534529793) 84 U/L 34-122 ALTv (test code = 1742-6) 13 U/L 5-35 AST(SGOT) (test code = 2846679091) 17 U/L 13-40 eGFR (test code = 2791283902) mL/min/1.73m2 LYNDSAY (test code = LYNDSAY) Lab Interpretation (test cod e = 55349-5) Abnormal [facility] WITH HUHJ0886-15-31 01:56:33* Test Item Value Reference Range Interpretation [...] g/dL 31.6-35.1 L RDW-SD (test code = 69668-0) 55.5 fL 39.0-49.9 H RDW-CV (test code = 788-0) 18.9 % 12.0-15.5 H PLT (test code = 777-3) See_Comment H [Automated messa ge] The system which generated this result transmitted reference range: 166 - 358 10*3/?L. The reference range was not used to interpret this result as normal/abnormal. MPV (test code = 63085-1) 8.2 fL 9.5-12.9 L NRBC/100 WBC (test code = 6429657354) See_Comment [Automated me ssage] The system which generated this result transmitted reference range: 0.0 - 10.0 /100 WBCs. The reference range was not used to interpret this result as normal/abnormal. NRBC x10^3 (test code = 4238883154) <0.01 See_Comment [Automated messa ge] The system which generated this result transmitted reference range: 10*3/?L. The reference range was not used to interpret this result as normal/abnormal. GRAN MAT (NEUT) % (test code = 770-8) 61.7 % IMM GRAN % (test code = 0161193970) 0.80 % LYMPH % (test code = 736-9) 28.5 % MONO % (test code = 5905-5) 6.3 % EOS % (test code = 713-8) 1.8 % BASO % (test code = 706-2) 0.9 % GRAN MAT x10^3(ANC) (test code = 4833930964) 7.31 10*3/uL 1.88-7.09 H IMM GRAN x10^3 (test code = 5173616081) 0.09 10*3/uL 0.00-0.06 H LYMPH x10^3 (test code = 731-0) 3.38 10*3/uL 1.32-3.29 H MONO x10^3 (test code = 742-7) 0.75 10*3/uL 0.33-0.92 EOS x10^3 (test code = 711-2) 0.21 10*3/uL 0.03-0.39 BASO x10^3 (test code = 704-7) 0.11 10*3/uL 0.01-0.07 H Lab Interpretation (test code = 83843-1) Abnormal [facility] WITH CSFW1286-92-72 01:56:33* Test Item Value Reference Range Interpretation [...] g/dL 31.6-35.1 L RDW-SD (test code = 81562-5) 55.5 fL 39.0-49.9 H RDW-CV (test code = 788-0) 18.9 % 12.0-15.5 H PLT (test code = 777-3) See_Comment H [Automated messa ge] The system which generated this result transmitted reference range: 166 - 358 10*3/?L. The reference range was not used to interpret this result as normal/abnormal. MPV (test code = 94976-1) 8.2 fL 9.5-12.9 L NRBC/100 WBC (test code = 4524694181) See_Comment [Automated JUNTA.CL ssage] The system which generated this result transmitted reference range: 0.0 - 10.0 /100 WBCs. The reference range was not used to interpret this result as normal/abnormal. NRBC x10^3 (test code = 3649217182) <0.01 See_Comment [Automated messa ge] The system which generated this result transmitted reference range: 10*3/?L. The reference range was not used to interpret this result as normal/abnormal. GRAN MAT (NEUT) % (test code = 770-8) 61.7 % IMM GRAN % (test code = 0956865467) 0.80 % LYMPH % (test code = 736-9) 28.5 % MONO % (test code = 5905-5) 6.3 % EOS % (test code = 713-8) 1.8 % BASO % (test code = 706-2) 0.9 % GRAN MAT x10^3(ANC) (test code = 5696383851) 7.31 10*3/uL 1.88-7.09 H IMM GRAN x10^3 (test code = 4888030143) 0.09 10*3/uL 0.00-0.06 H LYMPH x10^3 (test code = 731-0) 3.38 10*3/uL 1.32-3.29 H MONO x10^3 (test code = 742-7) 0.75 10*3/uL 0.33-0.92 EOS x10^3 (test code = 711-2) 0.21 10*3/uL 0.03-0.39 BASO x10^3 (test code = 704-7) 0.11 10*3/uL 0.01-0.07 H Lab Interpretation (test code = 15906-3) Abnormal [facility] (ID NOW RAPID TESTING)2021-03-17 01:38:12* Test Item Value Reference Range Interpretation Comme nts SARS-CoV-2 Rapid ID NOW (test code = 97091-6) Not Detected Not Detected LYNDSAY (test code = LYNDSAY) ID NOW COVID-19 As say is an isothermal nucleic acid amplification test intended for the qualitative detection of nucleic acid from SARS-CoV-2 viral RNA in nasopharyngeal (BLUEPRINT MAKER) specimens. It is used under Emergency Use [...] clinically indicated. Lab Interpretation (test code = 92726-7) Normal [place] [address] (ID NOW RAPID TESTING)2021-03-17 01:38:12* Test Item Value Reference Range Interpretation Comme nts SARS-CoV-2 Rapid ID NOW (raisa t code = 61583-2) Not Detected Not Detected LYNDSAY (test code = LYNDSAY) Lab Interpretation (test cod e = 12621-8) Normal [facility] (ID NOW RAPID TESTING)2021-02-19 17:42:45* Test Item Value Reference Range Interpretation Comme nts SARS-CoV-2 Rapid ID NOW (test code = 70073-2) Not Detected Not Detected LYNDSAY (test code = LYNDSAY) ID NOW COVID-19 As say is an isothermal nucleic acid amplification test intended for the qualitative detection of nucleic acid from SARS-CoV-2 viral RNA in nasopharyngeal (BLUEPRINT MAKER) specimens. It is used under Emergency Use [...] clinically indicated. Lab Interpretation (test code = 56459-9) Normal [facility] CenterCT ABDOMEN PELVIS W JCWRKWHA6023-62-83 17:24:55Thickening of the gastric antrum and duodenal [...] Electronicallysigned by James Freeman at 02/19/2021 12:24 PMUnLongview [facility] Medical CenterUrinalysis2021-08-03 17:03:40* Test Item Value Reference Range Interpretation Comme nts APPEARANCE (test code = 5695852984) Hazy Clear A COLOR (test code = 9228259125) Mabel Yellow A PH (test code = 2305763635) 4.8-8.0 SP GRAVITY (test code = 0963788955) 1.003-1.030 H GLU U QUAL (test code = 5777033158) Normal Normal BLOOD (test code = 6398416720) Negative Negative KETONES (test code = 6491667695) 5 mg/dL Negative A PROTEIN (test code = 2887-8) 30 mg/dL Negative A UROBILIN (test code = 6919074893) 4.0 mg/dL Normal A BILIRUBIN (test code = 8964690719) 4 mg/dL Negative A NITRITE (test code = 3703068136) Negative Negative LEUK GRUPO (test code = 0257405048) Negative Negative RBC/HPF (test code = 0740927182) See_Comment H [Automated messa ge] The system which generated this result transmitted reference range: 0 - 3 HPF. The reference range was not used to interpret this result as normal/abnormal. WBC/HPF (test code = 0246028210) See_Comment H [Automated messa ge] The system which generated this result transmitted reference range: 0 - 5 HPF. The reference range was not used to interpret this result as normal/abnormal. BACTERIA (test code = 4607160265) Few Negative A MUCOUS (test code = 3463517069) Moderate Negative LPF A SQ EPITH (test code = 4898352181) HPF CA OXALATE (test code = 3401397012) See_Comment H [Automated messa ge] The system which generated this result transmitted reference range: <=1 HPF. The reference range was not used to interpret this result as normal/abnormal. Ictotest (test code = 0097074357) Negative Lab Interpretation (test code = 62670-4) Abnormal [facility] CenterComplete Metabolic Jdxrf1460-34-38 16:34:55* Test Item Value Reference Range Interpretation Comme nts NA (test code = 5252849530) 139 mmol/L 135-145 K (test code = 4700112381) 4.3 mmol/L 3.5-5.0 CL (test code = 5036778787) 105 mmol/L 98-108 CO2 TOTAL (test code = 4165126376) 26 mmol/L 23-31 AGAP (test code = 1304675304) 2-16 BUN (test code = 0856160659) 11 mg/dL 7-23 GLUCOSE (test code = 9101838813) 95 mg/dL 70-110 CREATININE (test code = 3476048343) 0.70 mg/dL 0.50-1.04 TOTAL BILI (test code = 4519713299) 0.6 mg/dL 0.1-1.1 CALCIUM (test code = 7937455527) 8.9 mg/dL 8.6-10.6 T PROTEIN (test code = 7554149759) 7.7 g/dL 6.3-8.2 ALBUMIN (test code = 5983447465) 4.1 g/dL 3.5-5.0 ALK PHOS (test code = 5434310025) 79 U/L 34-122 ALTv (test code = 1742-6) 10 U/L 5-35 AST(SGOT) (test code = 2909852039) 22 U/L 13-40 eGFR (test code = 8155958417) mL/min/1.73m2 LYNDSAY (test code = LYNDSAY) Association [...] or urine or abnormalities in imaging tests). [facility] CenterLipase, Gvdyo8104-82-50 16:34:14* Test Item Value Reference Range Interpretation Comme nts LIPASE (test code = 6179000533) 45 U/L 0-220 Lab Interpretation (test cod e = 57275-1) Normal [facility] CenterCB with Qabasemfklqs7963-85-09 16:21:12* Test Item Value Reference Range Interpretation Comme nts WBC (test code = 6690-2) See_Comment [Automated [facility] PharmStat] The system which generated this result transmitted reference range: 4.30 - 11.10 10*3/?L. The reference range was not used to interpret this result as normal/abnormal. RBC (test code = 789-8) See_Comment [[employer]] The system which generated this result transmitted [...] g/dL 31.6-35.1 L RDW-SD (test code = 21048-2) 54.4 fL 39.0-49.9 H RDW-CV (test code = 788-0) 18.3 % 12.0-15.5 H PLT (test code = 777-3) See_Comment H [Automated messa ge] The system which generated this result transmitted reference range: 166 - 358 10*3/?L. The reference range was not used to interpret this result as normal/abnormal. MPV (test code = 99827-0) 8.5 fL 9.5-12.9 L NRBC/100 WBC (test code = 1477939170) See_Comment [Automated me ssage] The system which generated this result transmitted reference range: 0.0 - 10.0 /100 WBCs. The reference range was not used to interpret this result as normal/abnormal. NRBC x10^3 (test code = 1744103940) <0.01 See_Comment [Automated messa ge] The system which generated this result transmitted reference range: 10*3/?L. The reference range was not used to interpret this result as normal/abnormal. GRAN MAT (NEUT) % (test code = 770-8) 78.3 % IMM GRAN % (test code = 3426669613) 0.40 % LYMPH % (test code = 736-9) 15.4 % MONO % (test code = 5905-5) 4.8 % EOS % (test code = 713-8) 0.1 % BASO % (test code = 706-2) 1.0 % GRAN MAT x10^3(ANC) (test code = 0081520053) 7.15 10*3/uL 1.88-7.09 H IMM GRAN x10^3 (test code = 1447462186) 0.04 10*3/uL 0.00-0.06 LYMPH x10^3 (test code = 731-0) 1.41 10*3/uL 1.32-3.29 MONO x10^3 (test code = 742-7) 0.44 10*3/uL 0.33-0.92 EOS x10^3 (test code = 711-2) <0.03 0.03-0.39 L BASO x10^3 (test code = 704-7) 0.09 10*3/uL 0.01-0.07 H Lab Interpretation (test code = 78312-1) Abnormal [facility] Notes Date/Time Note Provider Source 2023-09-11 11:34:02 XlR0R6jKUjXMVjrnXQPHSVScvYFbzmL/d0RsA3 HycnxBGHxvg/JTlEmwxwq6CV3d9743-61-27I2 1:34:02 Chief ComplaintPatient presents withFollow-up HospitalizationPaBETO HarperN 13669-4Xfzmp QvyoAL6979-48-32V86:34:35Nurse NoteTXT1.2.840.181610.1.13.131.2.7.2.7 70087|[id number] for patient rzeq83482-5Rhbxi NoteLNNARRATIVEFormatted C-CDA narrative [facility] [facility] [id number] 334-63-50F58:34:351.2.840.674612.1.72. 3.15|1.2.840.377282.1.13.131.2.7.2.727 [id number] [facility] 2023-08-12 16:08:34 KwAEhcXmdgAKo84F8sgQqiSd/QxbrGn8v+T3SV lYtyocZyNNMkq6dHEcQ0LUEhui7703-42-18Q4 6:08:34 Bryan spoke to patient and patient decided to leave AMA.AMA form signed by patient and attached to paperwork.Patient in stable condition with AMA. IV line removed and patient was assisted onto wheelchair [facility]Patient called her prior to leaving room and will be picking up patient. 48472-3Hjjwrbsva department KpplXH8783-91-13T48:09:43Emergency department NoteTXT1.2.840.359958.1.13.104.2.7.2.7 41728|[id number] for patient qwcz30683-3LajvCWSAPWRBXJVCvvcoasac C-CDA narrative jkvs356491312Ilixgkyj Julia RNUT[address] [id number] XYOEUZQARLLZUXNKSOXH3559-42-78X32:09:4 31.2.840.191755.1.72.3.15|1.2.840.1143 50.1.13.104.2.7.2.727879_[id number] Steph Dumont RN [facility] 2023-08-12 15:56:21 +/IuJbVtNyH739/pyDvwZCmdT9G4wPEBdUaTSs H2PnjbasoMbViMgzjgDifAPMhC4136-12-81K4 5:56:21 Patient requesting to talk to provider - provider aware.Patient refused tylenol as she said medication does not improve her condition and she does not want to throw it up.Patient also refusing blood draw at this time. 59073-5Eqxpoywaa department ZupySN8764-94-15T56:57:14[facility] NoteTXT1.2.840.097578.1.13.104.2.7.2.7 35279|[id number] for patient qohc74416-3YcceIKTEKRCWDIIGyyylvgov C-CDA narrative text[id number] TIOYASENNLASPPYHIWYC9926-43-95G12:57:1 41.2.840.532619.1.72.3.15|1.2.840.1143 50.1.13.104.2.7.2.727879_[id number] [facility] 2023-08-12 14:50:00 kv9IcJAF7bmRvIczYdWo5JENfFuQNb8x5U/mPV da2VbkT4NDUu2hS0rO0AM5Sxcl0861-84-09M2 4:50:00 Patient's name and verified with patient.No [...] [place] [address]-1Dyzhqebgz department YqcwMX4115-52-04G31:29:07Emergen department NoteTXT1.2.840.512620.1.13.104.2.7.2.7 85661|[id number] for patient swaq05606-5VlfeLOULTGMATCQBtddknbix C-CDA narrative textUT[address] StreetYmfoYypanbrfjGmhasdhsjJGCW3444261128ZD EGKRQPZDABUMLLPAWKZA5686-57-80C72:29:0 71.2.840.659210.1.72.3.15|1.2.840.1143 50.1.13.104.2.7.2.727879_[id number] [facility] 2023-08-12 14:17:22 dk5PIRp6hO7cD2Oc2XS73MRfTNho++4eau6pz2 vBC5DvqA+onQZufdiYfFCaEiut7125-91-44B6 4:17:22 Patient had witnessed seizure like activity., at bedside.Patient stopped seizure activity and had no postictal phase.Patient coherent, alert and oriented/answering all questions appropriately. 31822-2Fidxhghlx department BstvXQ5182-61-22Z74:18:15[facility] department NoteTXT1.2.840.440472.1.13.104.2.7.2.7 99859|[id number] for patient kjer56118-7VjvzDYIQVYNVMCMKsqurtjve C-CDA narrative text[address] RinkTailkyulhFlxhujwxlDVWC0760692699WX HVIZOKQZRFCIIDMGYNUI3862-11-51L72:18:1 51.2.840.980901.1.72.3.15|1.2.840.1143 50.1.13.104.2.7.2.727879_[id number] [facility] 2023-08-12 13:45:33 KhGOt9Rf7fCDBvdyJul5HqD42Iu6fHt/HjgJpP W+B+ze7eKY5q4xEv/UGa9LYIJ37464-27-97S7 3:45:33 Patient here for chest pain that started approximately 1 hour ago. Patient had seizure like activity in the vehicle while attempting to get patient out of the car, patient had no post ictal phase. Patient c/o substernal chest pain and jaw pain. 93128-7Zdykpptxi department Triage dekyIU1965-22-79I44:46:59[facility] department Triage noteTXT1.2.840.576518.1.13.104.2.7.2.7 72421|[id number] for patient iyeb04121-5Cixckjkzu department NoteLNNARRATIVEFormatted C-CDA narrative [id number] S Cryer RN[address] [id number] JTKBYEZMVSJRNCLDAWVC3223-03-50T24:46:5 91.2.840.163496.1.72.3.15|1.2.840.1143 50.1.13.104.2.7.2.727879_[id number] Jasvir Reaves RN [facility] 2023-08-12 13:42:00 LhLkXcBjAJNB3+avrS/3kscEtnwXeSDP14Gn/c +2Rw+/A4KL44I1w9a1lmbaYBhU4006-17-92F4 3:42:00 [facility] Emergency Department NotePatient Name: Heather TurnerDate of : 1970 53 year old femaleTreatment Room: VA3/MS5Tnotkoz Record Number: [id number] Care Physician: PATIENT DOES NOT HAVE A PCPPatient Escorted by: Family [5]Mode of Arrival: Personal means [1]EMS Treatment Prior to ED Arrival:CONTENT EDITOR treatment: NoneTravel and Exposure Screening:SymptomsDoes patient have [...] received in last 5 years: NoChildhood immunizations: Gq-fq-sdesWfvreuehc:AllergiesAllergen ReactionsGreen Tea Other - See commentsSeizuresDiclofenac HypertensionKeppra [...] handMETATARSAL OSTEOTOMY Right 08/14/2015Surgeon: Luis Jones Jr., [facility]; [facility]:Review of SystemsPhysical Exam:ED Triage Vitals [...] (*) 0.01 - 0.07 10*3/uLCOMP. METABOLIC PANEL (63364) - AbnormalNA 140 135 - 145 mmol/LK [...] U/LAST(SGOT) 21 13 - 40 U/LeGFR 107.1 mL/min/1.42n6QCHMID ACID WHOLE BLOOD - NormalLACTIC ACID 1.56 0.50 - 2.20 mmol/LURINALYSISTROPONIN IEKG:If EKG completed, see Procedure Note.Orders and Treatments:Orders Placed This EncounterProceduresCbc with DiffComp. Metabolic Panel (77700)UrinalysisLactic Acid Whole BloodTroponin IOrders Placed This EncounterMedicationslacosamide (VIMPAT) 100 mg in NaCl 0.9% (NS) 50 mL piggybackacetaminophen (TYLENOL) tablet 1,000 mgFirst Provider Eval:ED EventsDate/Time Event User Zuzktvst76/24/24 1345 Medical Screening Begins BRIAN BRYAN --08/12/23 1345 First Provider Evaluation BRIAN BRYAN --ED COURSEED Course as of 08/12/23 1605Wed Aug 12 Lactic normal. Patient requesting to leave prior to treatment complete. Discussed risks of leaving. [PS]ED Course User Index[PS] Brian Bryan DODiagnosis/Impression as of 08/12/23 1605SeizureChest pain, unspecified typeProcedures:ProceduresMDM:Medical Decision MakingStmeethiginio Turner is a 53 year old female [...] on fileFollow-up:Contact information for follow-Yehuda Segovia MDSpecialty: [facility] AND [address] [address]Peihy: [phone]-Emergency DepartmentSpecialty: Emergency [address] [place] [id number]: [phone]: If symptoms worsen as documented in the dischargeElectronically signed by:Brian Bryan DO08/12/23 1605Brian Bryan DO08/12/23 1605 [id number] Emergency department [id number]:05:59Physician Emergency department [id number] for patient [id number] department NoteLNNARRATIVEFormatted C-CDA narrative text92 Scott [id number] NTORCZOUKEYYKYMVWSAA1303-63-02N38:05:5 [id number]|1.2.840.1143 [id number] [facility]
[2023-11-03] MEDS ORDERED: METHYLPREDNISOLONE 125 MG INJ ONE (01:30)
[2023-11-03] MEDS ORDERED: NA CHLORIDE 0.9% 0 ML ONE (01:30)
[2023-11-03] MEDS ORDERED: ONDANSETRON 4 MG/2 ML VIAL ONE ×2 (01:30→08:14)
[2023-11-03] MEDS ORDERED: AZITHROMYCIN 500 MG INJ IVPB ONE (01:30)
[2023-11-03] MEDS ORDERED: ALBUTEROL 2.5 MG/3 ML NEB SOL ONE (01:30)
[2023-11-03] MEDS ORDERED: IPRATROPIUM BROM 0.5MG/2.5ML ONE ×3 (01:30→13:56)
[2023-11-03] MEDS ORDERED: NA CHLORIDE 0.9% 50 ML ONE (01:31)
[2023-11-03] MEDS ORDERED: ACETAMINOPHEN 500 MG TAB ONE (02:18)
[2023-11-03] MEDS ORDERED: KETOROLAC 30 MG/ML INJ ONE (02:18)
[2023-11-03 02:26] LABS: Absolute Lymphocytes (CBC) 2.4 K/uL (0.7-4.9); Absolute Monocytes 0.8 K/uL (0.1-1.3); Absolute Neutrophil 4.6 K/uL (1.8-8.0); Basophils % 0.5 % (0-1.3); Eosinophils % 0.4 % (0-4.4); Hematocrit 30.1 % (36.0-45.0); Hemoglobin 9.8 g/dL (12.0-15.0); Lymphocytes % 30.4 % (15.3-44.8); MCH 26.4 pg (27.0-35.0); MCHC 32.5 g/dL (32.0-36.0); MCV 81.4 fL (80-100); Neutrophils % 58.7 % (41.7-73.7); Nucleated Red Blood Cells % 0.3 % (0-0); Platelets 323 thou/uL (152-406); Red Cell Distribution Width 22.2 % (12.1-15.2)
[2023-11-03 02:28] LABS: PT Prothrombin Time 13.3 SECONDS (9.5-12.5); PTT, Activated Partial Thromb 29.5 SECONDS (24.3-36.9); Protime INR 1.22
[2023-11-03 02:36] LABS: Albumin 3.1 g/dL (3.4-5.0); Albumin/Globulin Ratio 0.8 (1.1-1.8); Anion Gap 11.6 mEq/L (5.0-15.0); Bilirubin Direct 0.2 mg/dL (0-0.2); Bilirubin Indirect, Calculated 0.2 mg/dL (0.2-0.8); Bilirubin Total 0.4 mg/dL (0.2-1.0); Globulin 3.9 g/dL (2.3-3.5); Potassium 3.6 mEq/L (3.5-5.1)
[2023-11-03] MEDS ORDERED: AZITHROMYCIN 250 MG TAB ONE (02:38)
[2023-11-03 03:32] LABS: Anisocytosis 1+; Blood Morphology Comment NOTED (NOT SEEN); Platelet Estimate ADEQ; White Blood Cell Scan OK (OK)
--- NOTE | 2023-11-03 03:46 | ER ---
Nurse's Notes [facility] Name: Heather Coon Age: 53 yrs Sex: Female : 1970 Arrival Date: 11/03/2023 Time: 01:02 Bed 14 Private MD: Diagnosis: COPD/ Chronic obstructive pulmonary disease with (acute) exacerbation;Nausea vomiting, elevated troponin, history of cocaine abuse, NSTEMI Presentation: 11/02 01:09 Chief complaint: Patient states: SOB, nausea, vomiting x 1 episode, wheezing with low pf1 02 saturation in the 80's per patient stated, not witness per [facility]. 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 Coronavirus screen: Vaccine status: Client denies travel out of the [place] in the last 14 days. Client presents with at least one sign or symptom that may indicate coronavirus-19. Ebola Screen: Patient negative for fever greater than or equal to 101.5 degrees Fahrenheit, and additional compatible Ebola Virus Disease symptoms. Initial Sepsis Screen: Does the patient meet any 2 criteria? RR > 20 per min. HR > 90 bpm. Does the patient have a suspected source of infection? No. Patient's initial sepsis screen is negative. Risk Assessment: Do you want to hurt yourself or someone else? Patient reports no desire to harm self or others. Onset of symptoms was November 01, 2023. Care prior to arrival: Medication(s) given: Albuterol Neb Atrovent Neb x 1, Oxygen administered. via nasal cannula. 01:09 Method Of Arrival: EMS: [facility] pf1 01:09 Acuity: ANDER 3 pf1 Triage Assessment: 01:09 General: Appears in no apparent distress. comfortable, well developed, Behavior is pf1 calm, cooperative, appropriate for age, quiet. 01:09 Pain: Denies pain. EENT: No deficits noted. No signs and/or symptoms were reported pf1 regarding the EENT system. Neuro: No deficits noted. Level of Consciousness is awake, alert, obeys commands, Oriented to person, place, time, situation. Cardiovascular: No deficits noted. Reports shortness of breath, Capillary refill < 3 seconds Patient's skin is warm and dry. Respiratory: Reports shortness of breath at rest on exertion Airway is patent Respiratory effort is even, labored, Respiratory pattern is symmetrical, tachypnea Breath sounds are clear bilaterally. Onset: The symptoms/episode began/occurred yesterday, the patient has moderate shortness of breath. GI: Abdomen is round non-distended, Bowel sounds present X 4 quads. Reports nausea, vomiting. : No deficits noted. No signs and/or symptoms were reported regarding the genitourinary system. Musculoskeletal: No deficits noted. No signs and/or symptoms reported regarding the musculoskeletal system. Historical: - Allergies: 01:18 fluoxetine; pf1 01:18 Green Tea; pf1 01:18 Keppra; not an allergy; pf1 - PMHx: 01:18 Anxiety; Arthritis; Hypertension; Bipolar disorder; Cancer-Cervical; Chronic pf1 obstructive lung disease; Chronic pain; Congestive heart failure; Depression; Diverticulitis; Herniated Back Disc; intestinal mass; Myocardial infarction; pt reports hx of seizures; Spastic Muscles; stroke; - PSHx: 01:18 Tonsillectomy; back surgery; cervical fusion; foot; Cholecystectomy; pf1 - Immunization history:: Adult Immunizations not up to date, 3 doses of pfizer Last tetanus immunization: > 10 years ago Flu vaccine is not up to date. - Infectious Disease History:: Denies. - Social history:: Smoking status: Patient reports the use of cigarette tobacco products, smokes one-half pack cigarettes per day, Patient uses street drugs, cocaine, marijuana, Patient/guardian denies using alcohol, patient stated quit drinking alcohol 1 week ago.. - Family history:: not pertinent. Screenin:20 [facility] ED Fall Risk Assessment (Adult) History of falling in the last 3 months, pf1 including since admission No falls in past 3 months (0 pts) Confusion or Disorientation No (0 pts) Intoxicated or Sedated No (0 pts) Impaired Gait Yes (1 pt) Mobility Assist Device Used No (0 pt) Altered Elimination No (0 pt) Score/Fall Risk Level 0 - 2 = Low Risk Oriented to surroundings, Maintained a safe environment, Educated pt \T\ family on fall prevention, incl call for assistance when getting out of bed, Assessed \T\ reinforced patient's understanding of fall precautions, Provided non-skid footwear, Hourly rounding (assess needs \T\ fall precautionary measures) done, Used ambulatory aids as needed (educated on \T\ assisted with), Used gait belt as appropriate. Abuse screen: Denies threats or abuse. Nutritional screening: No deficits noted. Tuberculosis screening: No symptoms or risk factors identified. Assessment: 01:57 Reassessment: Patient appears in no apparent distress at this time. Patient and/or pf1 family updated on plan of care and expected duration. Pain level reassessed. 02:48 Reassessment: Patient appears in no apparent distress at this time. Patient and/or pf1 family updated on plan of care and expected duration. Pain level reassessed. Patient is alert, oriented x 3, equal unlabored respirations, skin warm/dry/pink. Patient states feeling better. Patient states symptoms have improved. 03:00 Cardiovascular: Reports chest pain, since yesterday. Patient stated is not really pain pf1 just pressure Capillary refill < 3 seconds Patient's skin is warm and dry. 03:30 Reassessment: Patient appears in no apparent distress at this time. Patient and/or pf1 family updated on plan of care and expected duration. Pain level reassessed. Patient is alert, oriented x 3, equal unlabored respirations, skin warm/dry/pink. 03:30 Cardiovascular: Rhythm is sinus tachycardia Chest pain quality is pressure. pf1 03:30 Musculoskeletal: Reports pain in back and chest. pf1 Vital Signs: 01:09 BP 133 / 99; Pulse 128; Resp 24; Temp 98.3; Pulse Ox 100% on R/A; Weight 81.65 kg; pf1 Height 5 ft. 3 in. ; Pain 0/10; 02:00 BP 134 / 89; Pulse 112; Resp 24; Pulse Ox 99% ; pf1 03:00 BP 126 / 92; Pulse 114; Resp 26; Pulse Ox 98% on 3 lpm NC; Pain 5/10; pf1 03:30 BP 130 / 89; Pulse 116; Resp 24; Pulse Ox 99% on 2 lpm NC; Pain 7/10; pf1 01:09 Body Mass Index 31.89 (81.65 kg, 160.02 cm) pf1 01:09 Pain Scale: Adult pf1 03:00 Pain Scale: Adult pf1 03:30 Pain Scale: Adult pf1 Nicole Coma Score: 01:30 Eye Response: spontaneous(4). Motor Response: obeys commands(6). Verbal Response: sp4 oriented(5). Total: 15. ED Course: 01:08 Patient arrived in ED. pf1 01:08 Luis E Myles MD is Attending Physician. sp4 01:09 Patient has correct armband on for positive identification. Placed in gown. Bed in low pf1 position. Call light in reach. Side rails up X 1. 01:09 Arm band placed on right wrist. pf1 01:10 Door closed. Noise minimized. Moved to private room. pf1 01:10 Warm blanket given. pf1 01:18 Triage completed. pf1 01:20 No provider procedures requiring assistance completed. Oxygen administration via nasal pf1 cannula \T\ 2L/min. 01:35 Missed attempt(s): 22 gauge in right antecubital area. pf1 01:40 Warm blanket given. pf1 01:40 Missed attempt(s): 22 gauge in right forearm. pf1 01:55 Inserted saline lock: 20 gauge in right antecubital area, using aseptic technique. pf1 Blood collected. 01:55 Initial lab(s) drawn, by ED staff, sent to lab. First set of blood cultures drawn by ED pf1 staff, EKG done, by ED staff, reviewed by Luis E Myles MD. 02:00 Chest Single View XRAY In Process Unspecified. EDMS 02:10 Second set of blood cultures drawn by ED staff. pf1 02:25 IV discontinued, intact, bleeding controlled, No redness/swelling at site. Pressure pf1 dressing applied, IV infiltrated, notified Dr. Myles. 03:00 Pillow given. pf1 03:40 Inserted saline lock: 20 gauge in left EJ, using aseptic technique. ,using aseptic pf1 technique. inserted by Dr. Myles. 03:44 Lactate w/ 2H reflex if indic. Sent. pf1 03:44 Troponin High Sensitivity Sent. pf1 03:44 Repeat lab(s) drawn. by ED staff, sent to lab. pf1 03:45 Germán Toledo MD is Hospitalizing Provider. sp4 04:00 Assisted to bathroom. vk 04:14 Lactate w/ 2H reflex if indic. Sent. pf1 04:14 Troponin High Sensitivity Sent. pf1 04:29 Provided Education on: need for admission. pf1 05:17 Urinalysis w/ reflexes Sent. vk 05:17 Urine collected: straight cath specimen, moni colored. vk Administered Medications: 02:00 Drug: Albuterol Inhalation 2.5 mg Inhalation every 20 minutes x3 Route: Inhalation; pf1 02:00 Drug: MethylPrednisoLONE IVP 125 mg IVP once Route: IVP; Site: right forearm; pf1 02:44 Follow up: Response: No adverse reaction; Marked relief of symptoms pf1 02:00 Drug: Ipratropium Inhalation Aerosol 0.5 mg Inhalation once; Every 20 min for a total pf1 of 3 treatments x3 Route: Inhalation; 02:00 Drug: Ondansetron IVP 8 mg IVP once; over 2 minutes Route: IVP; Site: right forearm; pf1 02:42 Follow up: Response: No adverse reaction; Marked relief of symptoms pf1 02:15 Drug: Rocephin - Rocephin (cefTRIAXone) IVPB 1 grams IVPB once over 30 mins; (mix in 50 pf1 mL NS) Route: IVPB; Infused Over: 30 mins; Site: right forearm; 02:43 Follow up: Response: No adverse reaction; Marked relief of symptoms pf1 03:45 Follow up: Response: No adverse reaction; Marked relief of symptoms; IV Status: pf1 Completed infusion; IV Intake: 50ml 02:20 Drug: Albuterol Inhalation 2.5 mg Inhalation every 20 minutes x3 Route: Inhalation; pf1 02:20 Drug: Ipratropium Inhalation Aerosol 0.5 mg Inhalation once; Every 20 min for a total pf1 of 3 treatments x3 Route: Inhalation; 02:20 Drug: Acetaminophen PO 1000 mg PO once Route: PO; pf1 02:42 Follow up: Response: No adverse reaction; Marked relief of symptoms pf1 02:20 Drug: Ketorolac IVP 30 mg IVP once Route: IVP; Site: right forearm; pf1 02:43 Follow up: Response: No adverse reaction; Marked relief of symptoms; Pain is decreased pf1 02:29 CANCELLED (Physician Discretion): [id number] mg IVPB once over 1 hrs; mix in 250 mL NSpf1 02:35 Drug: AZITHromycin PO 500 mg PO once Route: PO; pf1 02:50 Follow up: Response: No adverse reaction pf1 02:40 Drug: Albuterol Inhalation 2.5 mg Inhalation every 20 minutes x3 Route: Inhalation; pf1 02:40 Drug: Ipratropium Inhalation Aerosol 0.5 mg Inhalation once; Every 20 min for a total pf1 of 3 treatments x3 Route: Inhalation; 02:43 Follow up: Response: No adverse reaction; Marked relief of symptoms pf1 03:40 Drug: morphine IVP or IV 4 mg IVP once over 4 mins Route: IVP; Infused Over: 4 mins; pf1 Site: left jugular; 04:15 Follow up: Response: No adverse reaction; Marked relief of symptoms; Pain is decreased; pf1 RASS: Alert and Calm (0) 03:40 Drug: Enoxaparin Sub-Q 80 mg Sub-Q once Route: Sub-Q; Site: left lower abdomen; pf1 04:16 Follow up: Response: No adverse reaction pf1 03:50 Drug: Aspirin PO Chewable Tablet 324 mg PO once; 81 mg tablets x 4 Route: PO; pf1 04:16 Follow up: Response: No adverse reaction; Marked relief of symptoms; Pain is decreased pf1 Medication: 04:30 VIS not applicable for this client. pf1 Intake: 03:45 IV: 50ml; Total: 50ml. pf1 Outcome: 03:45 Decision to Hospitalize by Provider. sp4 03:46 Admitted to ER Hold. Please see [facility] for further documentation. pf1 03:46 Condition: stable 03:46 Instructed on the need for admit, Demonstrated understanding of instructions, 15:54 Patient left the ED. ph Signatures: Dispatcher [employer] EDEvonne Orta RN RN ph Finley, Pamala, RN RN pf1 Luis E Myles MD MD sp4 Aneta Montes Corrections: (The following items were deleted from the chart) 02:47 01:09 Respiratory: Reports shortness of breath at rest on exertion Airway is patent pf1 Respiratory effort is even, labored, Respiratory pattern is symmetrical, tachypnea Breath sounds with wheezes bilaterally. pf1
--- NOTE | 2023-11-03 03:46 | EDPHYS ---
Physician Documentation [facility] Name: Heather Coon Age: 53 yrs Sex: Female : 1970 Arrival Date: 11/03/2023 Time: 01:02 Bed 14 Private MD: ED Physician Luis E Myles HPI: 11/02 01:12 This 53 yrs old Female presents to ER via Unassigned with complaints of sp4 Shortness Of Breath. 01:20 53-year-old female with past medical history of COPD, hypertension, hyperlipidemia, sp4 CHF, also history of chronic back pain and poor mobility presents with worsening shortness of breath additional complaint of vomiting at home. EMS reported patient was hypoxemic on arrival. Her oxygenation was in the 80s. Patient has history of chronic cocaine abuse. Patient states she smokes cigarettes daily.. Patient's medications include carvedilol 12.5 mg p.o. twice daily, dexamethasone 4 mg p.o. twice daily, metformin 500 mg p.o. daily, spironolactone 500 mg p.o. twice daily, Depakote 250 mg p.o. twice daily, Trelegy Ellipta, furosemide 40 mg p.o. daily, nitroglycerin as needed, ipratropium as needed,. 03:48 Old record review - CT chest / abdomen / pelvis - IMPRESSION: 1. No acute traumatic sp4 injury of the chest, abdomen, or pelvis. Evaluation limited by lack of intravenous contrast. 2. Scattered pulmonary nodules are much smaller than the cavitary nodules seen on prior examination and may represent sequela from septic emboli. 3. Stable left adrenal nodule consistent with benign adenoma. Electronically signed by: Ryder Woods MD 11/01/2023 01:04 AM CDT. 03:51 Old record review - CT chest PE protocol - EXAM: 10/06/2023 CTAngiography Chest With sp4 Intravenous Contrast CLINICAL HISTORY: CHEST PAIN TECHNIQUE: Axial computed tomographic angiography images of the chest with intravenous contrast. Sagittal and coronal reformatted images were created and reviewed. This CT exam was performed using one or more of the following dose reduction techniques: automated exposure control, adjustment of the mA and/or kV according to patient size, and/or use of iterative reconstruction technique. MIP reconstructed images were created and reviewed. COMPARISON: CTA Chest dated 09/27/2023, CTA Chest dated 06/21/2023 FINDINGS: Pulmonary arteries: Unremarkable. No pulmonary arterial filling defects. Aorta: Mild atherosclerotic disease. No thoracic aortic aneurysm. Lungs: Left upper lobe calcified granuloma. There are a few small right upper lobe nodules similar to the most recent prior, the largest measuring 5 mm (series 401 image 90). These appear to be small residual foci at sites of previous cavitary nodules seen on the June 2023 examination. Scattered bilateral subsegmental atelectasis/pleural parenchymal scar. Pleural space: Unremarkable. No significant effusion. No pneumothorax. Heart: Coronary artery calcification. No cardiomegaly. No significant pericardial effusion. No evidence of RV dysfunction. Bones/joints: Multilevel spondylosis. No acute fracture. Multilevel spondylosis. Partially visualized anterior fusion hardware at the lower cervical spine. No dislocation. Soft tissues: Unremarkable. Lymph nodes: Unremarkable. No enlarged lymph nodes. Adrenals: 2.4 cm left adrenal lesion measuring -18 Hounsfield units most compatible with a benign adenoma again demonstrated. IMPRESSION: 1. No pulmonary embolic disease. 2. Other findings as above. Electronically signed by: Yamilka Mcmillan MD 10/06/2023 11:12 PM CDT. Historical: - Allergies: 01:18 fluoxetine; pf1 01:18 Green Tea; pf1 01:18 Keppra; not an allergy; pf1 - PMHx: 01:18 Anxiety; Arthritis; Hypertension; Bipolar disorder; Cancer-Cervical; Chronic pf1 obstructive lung disease; Chronic pain; Congestive heart failure; Depression; Diverticulitis; Herniated Back Disc; intestinal mass; Myocardial infarction; pt reports hx of seizures; Spastic Muscles; stroke; - PSHx: 01:18 Tonsillectomy; back surgery; cervical fusion; foot; Cholecystectomy; pf1 - Immunization history:: Adult Immunizations not up to date, 3 doses of pfizer Last tetanus immunization: > 10 years ago Flu vaccine is not up to date. - Infectious Disease History:: Denies. - Social history:: Smoking status: Patient reports the use of cigarette tobacco products, smokes one-half pack cigarettes per day, Patient uses street drugs, cocaine, marijuana, Patient/guardian denies using alcohol, patient stated quit drinking alcohol 1 week ago.. - Family history:: not pertinent. ROS: 01:20 Constitutional: Negative for fever, chills, and weight loss, positive for shortness of sp4 breath, positive for vomiting. 01:20 All other systems are negative, Exam: 01:20 Constitutional: This is a well developed, well nourished patient who is awake, alert, sp4 and in no acute distress. Signs of poor mobility and chronic physical deconditioning Head/Face: Normocephalic, atraumatic. Eyes: Pupils equal round and reactive to light, extra-ocular motions intact. Lids and lashes normal. Conjunctiva and sclera are not injected. Cornea within normal limits. Periorbital areas with no swelling, redness, or edema. ENT: Nares patent. No nasal discharge, no septal abnormalities noted. Tympanic membranes are normal and external auditory canals are clear. Oropharynx with no redness, swelling, or masses, exudates, or evidence of obstruction, uvula midline. Mucous membranes moist. Neck: Trachea midline, no thyromegaly or masses palpated, and no cervical lymphadenopathy. Supple, full range of motion without nuchal rigidity, or vertebral point tenderness. Chest/axilla: Normal chest wall appearance and motion. Nontender with no deformity. No lesions are appreciated. Cardiovascular: Regular rate and rhythm with a normal S1 and S2. No gallops, murmurs, or rubs. Normal PMI, no JVD. No pulse deficits. Respiratory: Lungs have equal breath sounds bilaterally, clear to auscultation and percussion. No rales, rhonchi or wheezes noted. No increased work of breathing, no retractions or nasal flaring. Abdomen/GI: Soft, with normal bowel sounds. No distension or tympany. No guarding or rebound. No evidence of tenderness throughout. Back: No spinal tenderness. No costovertebral tenderness. Skin: Warm, dry with normal turgor. Normal color with no rashes, no lesions, and no evidence of cellulitis. MS/ Extremity: Pulses equal, no cyanosis. Neurovascular intact. Signs of chronic poor mobility and physical deconditioning Neuro: Awake and alert, GCS 15, oriented to person, place, time, and situation. Cranial nerves II-XII grossly intact. Motor strength 5/5 in all extremities. Sensory grossly intact. Psych: Awake, alert, with orientation to person, place and time. Behavior, mood, and affect are within normal limits 01:30 ECG was reviewed by the Attending Physician. EKG time 0 111. sp4 Vital Signs: 01:09 BP 133 / 99; Pulse 128; Resp 24; Temp 98.3; Pulse Ox 100% on R/A; Weight 81.65 kg; pf1 Height 5 ft. 3 in. ; Pain 0/10; 02:00 BP 134 / 89; Pulse 112; Resp 24; Pulse Ox 99% ; pf1 03:00 BP 126 / 92; Pulse 114; Resp 26; Pulse Ox 98% on 3 lpm NC; Pain 5/10; pf1 03:30 BP 130 / 89; Pulse 116; Resp 24; Pulse Ox 99% on 2 lpm NC; Pain 7/10; pf1 01:09 Body Mass Index 31.89 (81.65 kg, 160.02 cm) pf1 01:09 Pain Scale: Adult pf1 03:00 Pain Scale: Adult pf1 03:30 Pain Scale: Adult pf1 Nicole Coma Score: 01:30 Eye Response: spontaneous(4). Motor Response: obeys commands(6). Verbal Response: sp4 oriented(5). Total: 15. MDM: 01:19 Patient medically screened. sp4 03:43 Differential diagnosis: Anxiety Reaction asthma, Bronchitis CHF exacerbation, Chronic sp4 Obstructive Pulmonary Disease Myocardial Infarction. Data reviewed: vital signs, nurses notes, EMS record, old medical records, lab test result(s), EKG, radiologic studies, plain films. Consideration of Admission/Observation Patient was admitted/placed on observation. Escalation of care including admission/observation considered. Management of patient was discussed with the following: Hospitalist: Tre ELIZONDO . ED course: Has elevated troponin and warrants admission to the hospital. 03:49 ED course: EXAM: XR Chest, 1 View CLINICAL HISTORY: The patient is 53 years old and is sp4 Female; DYSPNEA TECHNIQUE: Frontal view of the chest. COMPARISON: No relevant prior studies available. FINDINGS: Lungs: Mildly prominent interstitial markings which may indicate mild interstitial edema. No consolidation. Pleural space: Unremarkable. No pneumothorax. Heart: Unremarkable. Mediastinum: Unremarkable. Normal mediastinal contour. Bones/joints: No acute findings. IMPRESSION: Mildly prominent interstitial markings which may indicate mild interstitial edema. No consolidation.. 11/02 01:10 Order name: BMP; Complete Time: 03:35 sp4 11/02 01:10 Order name: Blood Culture Adult (2) sp4 11/02 01:10 Order name: CBC with Diff; Complete Time: 03:35 sp4 11/02 01:10 Order name: CPK; Complete Time: 03:35 sp4 11/02 01:10 Order name: D-Dimer; Complete Time: 02:58 sp4 11/02 01:10 Order name: Hepatic Function; Complete Time: 03:35 sp4 11/02 01:10 Order name: Lipase; Complete Time: 03:35 sp4 11/02 01:10 Order name: Magnesium; Complete Time: 03:35 sp4 11/02 01:10 Order name: NT PRO-BNP; Complete Time: 03:35 sp4 11/02 01:10 Order name: PT-INR; Complete Time: 02:58 11/02 01:10 Order name: Ptt, Activated; Complete Time: 02:58 11/02 01:10 Order name: Troponin HS; Complete Time: 03:35 4 11/02 01:11 Order name: Urine Drug Screen; Complete Time: 06:25 sp4 11/02 01:11 Order name: Urinalysis W/Microscopic; Complete Time: 06:25 sp4 11/02 01:12 Order name: ABG; Complete Time: 04:57 sp4 11/02 01:15 Order name: Alcohol Level; Complete Time: 02:58 sp4 11/02 01:59 Order name: Lactate w/ 2H reflex if indic.; Complete Time: 03:35 pf1 11/02 02:34 Order name: CBC Smear Scan; Complete Time: 03:35 EDMS 11/02 03:37 Order name: Troponin High Sensitivity; Complete Time: 04:57 jw7 11/02 03:37 Order name: Lactate w/ 2H reflex if indic.; Complete Time: 04:57 jw7 11/02 04:15 Order name: Urinalysis w/ reflexes EDMS 11/02 04:15 Order name: CBC with Automated Diff EDMS 11/02 04:15 Order name: CBC with Automated Diff EDMS 11/02 04:15 Order name: Comprehensive Metabolic Panel EDMS 11/02 04:15 Order name: Comprehensive Metabolic Panel EDMS 11/02 04:15 Order name: Troponin High Sensitivity EDMS 11/02 04:15 Order name: Troponin High Sensitivity EDMS 11/02 04:15 Order name: Troponin High Sensitivity EDMS 11/02 01:16 Order name: Chest Single View XRAY [facility] 11/02 04:04 Order name: ARTERIAL BLOOD GAS [facility] 11/02 01:10 Order name: EKG; Complete Time: 01:11 [facility] 11/02 01:10 Order name: Cardiac monitoring; Complete Time: 02:00 [facility] 11/02 01:10 Order name: EKG - Nurse/Tech; Complete Time: 02:00 [facility] 11/02 01:10 Order name: IV Saline Lock; Complete Time: 02:00 [facility] 11/02 01:10 Order name: Labs collected and sent; Complete Time: 02:44 [facility] 11/02 01:10 Order name: O2 Per Protocol; Complete Time: 02:00 [facility] 11/02 01:10 Order name: O2 Sat Monitoring; Complete Time: 02:00 EC:30 Rate is 118 beats/min. Rhythm is regular, Sinus tachycardia. QRS [place] is Normal. CT sp4 interval is normal. QRS interval is normal. QT interval is normal. No Q waves. T waves are Normal. No ST changes noted. Clinical impression: No evidence of ischemia. Interpreted by me. Reviewed by me. Administered Medications: 02:00 Drug: Albuterol Inhalation 2.5 mg Inhalation every 20 minutes x3 Route: Inhalation; pf1 02:00 Drug: MethylPrednisoLONE IVP 125 mg IVP once Route: IVP; Site: right forearm; pf1 02:44 Follow up: Response: No adverse reaction; Marked relief of symptoms pf1 02:00 Drug: Ipratropium Inhalation Aerosol 0.5 mg Inhalation once; Every 20 min for a total pf1 of 3 treatments x3 Route: Inhalation; 02:00 Drug: Ondansetron IVP 8 mg IVP once; over 2 minutes Route: IVP; Site: right forearm; pf1 02:42 Follow up: Response: No adverse reaction; Marked relief of symptoms pf1 02:15 Drug: Rocephin - Rocephin (cefTRIAXone) IVPB 1 grams IVPB once over 30 mins; (mix in 50 pf1 mL NS) Route: IVPB; Infused Over: 30 mins; Site: right forearm; 02:43 Follow up: Response: No adverse reaction; Marked relief of symptoms pf1 03:45 Follow up: Response: No adverse reaction; Marked relief of symptoms; IV Status: pf1 Completed infusion; IV Intake: 50ml 02:20 Drug: Albuterol Inhalation 2.5 mg Inhalation every 20 minutes x3 Route: Inhalation; pf1 02:20 Drug: Ipratropium Inhalation Aerosol 0.5 mg Inhalation once; Every 20 min for a total pf1 of 3 treatments x3 Route: Inhalation; 02:20 Drug: Acetaminophen PO 1000 mg PO once Route: PO; pf1 02:42 Follow up: Response: No adverse reaction; Marked relief of symptoms pf1 02:20 Drug: Ketorolac IVP 30 mg IVP once Route: IVP; Site: right forearm; pf1 02:43 Follow up: Response: No adverse reaction; Marked relief of symptoms; Pain is decreased pf1 02:29 CANCELLED (Physician Discretion): [id number] mg IVPB once over 1 hrs; mix in 250 mL NSpf1 02:35 Drug: AZITHromycin PO 500 mg PO once Route: PO; pf1 02:50 Follow up: Response: No adverse reaction pf1 02:40 Drug: Albuterol Inhalation 2.5 mg Inhalation every 20 minutes x3 Route: Inhalation; pf1 02:40 Drug: Ipratropium Inhalation Aerosol 0.5 mg Inhalation once; Every 20 min for a total pf1 of 3 treatments x3 Route: Inhalation; 02:43 Follow up: Response: No adverse reaction; Marked relief of symptoms pf1 03:40 Drug: morphine IVP or IV 4 mg IVP once over 4 mins Route: IVP; Infused Over: 4 mins; pf1 Site: left jugular; 04:15 Follow up: Response: No adverse reaction; Marked relief of symptoms; Pain is decreased; pf1 RASS: Alert and Calm (0) 03:40 Drug: Enoxaparin Sub-Q 80 mg Sub-Q once Route: Sub-Q; Site: left lower abdomen; pf1 04:16 Follow up: Response: No adverse reaction pf1 03:50 Drug: Aspirin PO Chewable Tablet 324 mg PO once; 81 mg tablets x 4 Route: PO; pf1 04:16 Follow up: Response: No adverse reaction; Marked relief of symptoms; Pain is decreased pf1 Disposition Summary: 11/03/23 03:45 Hospitalization Ordered Notes: Hospitalization Status: Observation sp4 Provider: Germán Toledo sp4 Condition: Stable sp4 Problem: new sp4 Symptoms: have improved sp4 Bed/Room Type: Standard sp4 Location: Telemetry/MedSurg (observation)(11/03/23 14:45) kb3 Room Assignment: 404(11/03/23 14:45) kb3 Diagnosis - COPD/ Chronic obstructive pulmonary disease with (acute) exacerbation sp4 - Nausea vomiting, elevated troponin, history of cocaine abuse, NSTEMI sp4 Forms: - Medication Reconciliation Form sp4 - SBAR form sp4 - Leadership Thank You Letter sp4 Signatures: Dispatcher [employer] EDMS Catherine Dewey Kelly RN RN kb3 Gabriela Jeff RN RN pf1 Luis E Myles MD MD sp4 Maile Orellana RN RN cm10 Corrections: (The following items were deleted from the chart) 01:11 01:11 BASIC METABOLIC PANEL+C.LAB.BRZ ordered. EDMS EDMS 01:11 01:11 BLOOD CULTURE*+BA.LAB.BRZ ordered. EDMS EDMS 01:11 01:11 CBC+H.LAB.BRZ ordered. EDMS EDMS 01:11 01:11 CREATINE PHOSPHOKINASE+C.LAB.BRZ ordered. EDMS EDMS 01:11 01:11 D-DIMER+COAG.LAB.BRZ ordered. EDMS EDMS 01:11 01:11 HEPATIC FUNCTION+C.LAB.BRZ ordered. EDMS EDMS 01:11 01:11 LIPASE+C.LAB.BRZ ordered. EDMS EDMS 01:11 01:11 MAGNESIUM+C.LAB.BRZ ordered. EDMS EDMS 01:11 01:11 PROBNP+C.LAB.BRZ ordered. EDMS EDMS 01:11 01:11 PROTIME (+INR)+COAG.LAB.BRZ ordered. EDMS EDMS 01:11 01:11 PTT, ACTIVATED+COAG.LAB.BRZ ordered. EDMS EDMS 01:11 01:11 Troponin High Sensitivity+C.LAB.BRZ ordered. EDMS EDMS 01:16 01:16 Chest Single View+RAD.RAD.BRZ ordered. EDMS EDMS 02:00 02:00 LACTATE+C.LAB.BRZ ordered. EDMS EDMS 02:29 01:11 Zithromax IVPB 500 mg IVPB once over 1 hrs; mix in 250 mL NS ordered. sp4 pf1 02:29 02:28 Zithromax IVPB 500 mg IVPB once over 1 hrs; mix in 250 mL NS ordered. pf1 pf1 03:37 03:37 Troponin High Sensitivity+C.LAB.BRZ ordered. EDMS EDMS 03:37 03:37 LACTATE+C.LAB.BRZ ordered. EDMS EDMS 03:41 03:36 Chest For PE Angio+CT.RAD.BRZ ordered. EDMS EDMS 04:46 04:15 Troponin High Sensitivity ordered. EDMS EDMS 06:25 03:45 Telemetry/MedSurg (observation) sp4 cm10 06:25 03:45 sp4 cm10 13:18 06:25 [facility] ER HOLD cm10 bd 13:18 06:25 ERHOLD- cm10 bd 13:40 13:18 Telemetry/MedSurg (observation) bd bd 13:40 13:18 426 bd bd 14:45 13:40 [facility] ER HOLD bd kb3 14:45 13:40 ERHOLD- bd kb3
[2023-11-03] MEDS ORDERED: ENOXAPARIN 80 MG/0.8 ML SQ ONE (03:49)
[2023-11-03] MEDS ORDERED: MORPHINE 4 MG/ML SYR ONE (03:49)
[2023-11-03] MEDS ORDERED: ASPIRIN 81 MG CHEWABLE TABLET ONE (03:49)
[2023-11-03 04:00] LABS: Arterial Blood Carboxyhemoglob 3.1 % (0-1.5); Blood O2 Saturation 97.4 % (92-98.5)
[2023-11-03] MEDS ORDERED: ACETAMINOPHEN 325 MG TABLET PO PRN (04:10)
--- NOTE | 2023-11-03 04:15 | P.HP ---
Certification for Inpatient Patient admitted to: Observation With expected LOS: <2 Midnights Practitioner: I am a practitioner with admitting privileges, knowledge of patient current condition, hospital course, and medical plan of care. Services: Services provided to patient in accordance with Admission requirements found in Title 42 Section 412.3 of the Code of Federal Regulations Patient History Date of Service: 11/03/23 Reason for admission: Chest Pain History of Present Illness: 53 yrs old Female with past medical history of Anxiety; Arthritis; Hypertension; Bipolar disorder; Cancer-Cervical; COPD, Chronic pain; Congestive heart failure; Depression; Diverticulitis; Herniated Back Disc; intestinal mass; Myocardial infarction; hx of seizures; Spastic Muscles; stroke who came to ER with shortness of breath and chest discomfort which started 2 days ago and has been worsening associated with chronic back pain. Patient was previously seen in [place] and had an angiogram which was negative for any obstruction. She is still smoking cigarettes daily. Also has a history of chronic cocaine abuse. Patient was assessed in the ER and was found to be hypoxic to the oxygenation of 80% and has been admitted for further management and also was noted to be having elevated troponin ; Allergies levetiracetam [From Kera] Allergy (Verified 09/20/23 03:53) Anaphylaxis Green tea Allergy (Mild, Uncoded 09/20/23 03:53) seizures Home medications list reviewed: Yes Home Medications: Divalproex Sodium [Depakote] 250 mg PO BID 01/15/23 Fluticasone/Umeclidin/Vilanter [Trelegy Ellipta 100-62.5-25] 1 each IH DAILY 30 Days #30 aero 05/04/23 Furosemide [Lasix*] 40 mg PO DAILY tab 05/19/23 Nitroglycerin [Nitrostat*] 0.4 mg SL UD PRN tab 05/19/23 Ipratropium Neb [Atrovent*] 0.5 mg NEB [id number] #60 amp 09/22/23 Blood Sugar Diagnostic [Test Strips] 1 each MC DAILY #100 strip 09/29/23 Blood-Glucose Meter [Glucocard Shine Connex Meter] 1 each MC DAILY #1 ea 09/29/23 Lancets [Glucocom Lancets] 1 each MC BID #100 ea 09/29/23 Metformin HCl 500 mg PO DAILY #30 tab 09/29/23 carvediloL [Carvedilol] 12.5 mg PO BID #60 tab 09/29/23 Aspirin 81 mg PO DAILY 11/03/23 Atorvastatin Calcium 20 mg PO DAILY 11/03/23 Duloxetine [Cymbalta *] 20 mg PO DAILY 11/03/23 Lactulose 30 ml PO TID PRN 11/03/23 - Past Medical/Surgical History Diabetic: No Past Medical History: Reviewed- Non-Contributory -: COPD -: Hypertension -: migraines -: Depression with anxiety -: Pancreatitis -: Coronary artery disease-prior myocardial infarction -: Diverticulitis -: Seizure disorder -: Herniated back disc -: Diverticulitis -: Herniated back disc -: history of seizures Past Surgical History: Reviewed- Non-Contributory -: 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 -: cholecystectomy -: 5 hand surgeries -: tonsilectomy Psychosocial/ Personal History: Lives at home with her boyfriend - Family History Family History: Reviewed- Non-Contributory - Family History Father -: Hypertension, Other (see notes) Notes: No premature coronary disease Mother -: Heart disease, Hypertension, GI disease, Diabetes, Liver disease, Kidney disease - Social History Smoking Status: Current some day smoker Alcohol use: Yes CD- Drugs: Yes Caffeine use: No Review of Systems 10-point ROS is otherwise unremarkable Physical Examination - Vital Signs Temperature: 98.6 F Blood Pressure: 126/78 Pulse: 78 Respirations: 18 Pulse Ox (%): 93 - Physical Exam General: Alert, Oriented x3, Cooperative, Mild distress HEENT: Atraumatic, Normocephalic Neck: Supple, No Thyromegaly Respiratory: Clear to auscultation bilaterally, Crackles/rales Cardiovascular: Normal pulses, Regular rate/rhythm, Normal S1 S2 Capillary refill: <2 Seconds Gastrointestinal: Soft and benign, W/out hepatosplenomegaly Musculoskeletal: No clubbing, Swelling Integumentary: No rashes, No breakdown Neurological: Normal speech, Normal strength at 5/5 x4 extr, Cranial nerves 3-12 intact, Normal reflexes 2+, Normal affect Lymphatics: No axilla or inguinal lymphadenopathy - Studies Laboratory Data (last 24 hrs) 11/03/23 11/03/23 11/03/23 01:55 01:55 01:55 WBC 7.80 Hgb 9.8 L Hct 30.1 L Plt Count 323 PT 13.3 H INR 1.22 APTT 29.5 Sodium 138 Potassium 3.6 BUN 13 Creatinine 0.76 Glucose 123 H Magnesium 2.0 Total Bilirubin 0.4 AST 18 ALT 28 Alkaline Phosphatase 138 H Lipase 24 Assessment and Plan - Problems (Diagnosis) (1) NSTEMI (non-ST elevated myocardial infarction) Current Visit: Yes Status: Acute Plan: NSTEMI possibly type II Will trend cardiac enzymes Will monitor telemetry Started on aspirin and statin EKG noted Patient denies any chest pain at this time Will get an echocardiogram (2) Acute on chronic combined systolic and diastolic heart failure Current Visit: No Status: Acute Plan: Acute on chronic CHF possibly systolic/diastolic Monitor closely on telemetry Started on aggressive diuresis X-ray findings consistent with CHF Oxygen supplementation Will try to wean down oxygen requirement Continue home medications Titrate as needed Will obtain an echocardiogram (3) COPD (chronic obstructive pulmonary disease) Current Visit: No Status: Acute Plan: Monitor closely on telemetry Started on bronchodilators Oxygen supplementation Steroids added ABG findings noted Chest x-ray findings noted Qualifiers: COPD type: unspecified COPD Qualified Code(s): J44.9 - Chronic obstructive pulmonary disease, unspecified (4) Hypertension Current Visit: No Status: Chronic Plan: Continue home medications and titrate as needed Qualifiers: Hypertension type: primary hypertension Qualified Code(s): I10 - Essential (primary) hypertension Discharge Plan: Home Plan to discharge in: 48 Hours - Advance Directives Does patient have a Living Will: No Does patient have a Durable POA for Healthcare: No - Code Status/Comfort Care Code Status: Full Code Time Spent Managing Pts Care (In Minutes): 48
[2023-11-03 05:29] VITALS: BMI 31.8
[2023-11-03 05:38] LABS: Specific Gravity > 1.030 (1.005-1.030); Sqamous Epithelial <5 /HPF (None Seen); Urine Bacteria >50 /HPF (<20); Urine Bilirubin NEGATIVE (Negative); Urine Blood 1+ (Negative); Urine Clarity Turbid (Clear); Urine Color Yellow (Yellow); Urine Culture Reflex Order REFLEXED; Urine Glucose NEGATIVE (Negative); Urine Ketones TRACE (Negative); Urine Micro Reflex YN NO BILL MICROSCOPIC; Urine Mucus 2+ /HPF (None Seen); Urine Nitrite 2+ (Negative); Urine Protein 2+ (Negative); Urine Urobilinogen Normal (Normal); Urine WBC >50 /HPF (<5)
[2023-11-03 05:40] LABS: Barbiturates NEGATIVE (NEGATIVE); Benzodiazepines POSITIVE (NEGATIVE); Cocaine POSITIVE (NEGATIVE); METHAMPHETAM NEGATIVE (NEGATIVE); Methadone NEGATIVE (NEGATIVE); Opiates POSITIVE (NEGATIVE); Phencyclidine NEGATIVE (NEGATIVE); THC Cannibis POSITIVE (NEGATIVE)
[2023-11-03] MEDS ORDERED: ATORVASTATIN 20 MG TAB ONE (08:03)
[2023-11-03] MEDS ORDERED: ASPIRIN EC 81 MG TAB PO ONE (08:03)
[2023-11-03] MEDS ORDERED: DIVALPROEX DR 250 MG TAB PO ONE (08:03)
[2023-11-03] MEDS ORDERED: ENOXAPARIN 40 MG/0.4 ML SQ ONE (08:04)
[2023-11-03] MEDS ORDERED: FUROSEMIDE 20 MG/ 2ML VIAL ONE (08:04)
[2023-11-03] MEDS ORDERED: carvediloL 6.25 MG TAB ONE (08:04)
[2023-11-03] MEDS: IPRATROPIUM BROM 0.5MG/2.5ML NEB SCH (08:15)
[2023-11-03] MEDS: HOME MED 1 EA UNK (Fluticasone/Umeclidin/Vilanter [Trelegy Ellipta 100-62.5-25] Blst.W.Dev IH SCH (09:00)
[2023-11-03] MEDS: ENOXAPARIN 40 MG/0.4 ML SQ SCH (09:00)
[2023-11-03] MEDS: DIVALPROEX DR 250 MG TAB PO SCH (09:00)
[2023-11-03] MEDS: carvediloL 6.25 MG TAB PO SCH (09:00)
[2023-11-03] MEDS: DULOXETINE 20 MG CAP PO SCH (09:00)
[2023-11-03] MEDS: FUROSEMIDE 20 MG/ 2ML VIAL IV SCH (09:00)
[2023-11-03] MEDS: ATORVASTATIN 20 MG TAB PO SCH (09:00)
[2023-11-03] MEDS: ASPIRIN 81 MG CHEWABLE TABLET PO SCH (09:00)
[2023-11-03] MEDS: ONDANSETRON 4 MG/2 ML VIAL IV PRN (09:37)
[2023-11-03] MEDS: ONDANSETRON 4 MG/2 ML VIAL IV ONE (13:33)
--- NOTE | 2023-11-03 13:36 | P.PN ---
Date of Service: 11/03/23 Patient seen and examined. She is complaining of back pain, anxiety and nausea. She denies any chest pain. Patient reports recent cardiac cath about 5 months ago was normal Troponin x 1 mildly elevated and then trended down to negative. I doubt patient has NSTEMI. Acute respiratory failure with hypoxia COPD exacerbation Chronic back pain Polysubstance abuse: Plan: Bronchodilators, IV steroid No indication for antibiotics at this time. Wean oxygen as tolerated. Supportive measures with antianxiety medications, antiemetics and tramadol as needed for pain.
[2023-11-03] MEDS ORDERED: TRAMADOL HCL 50 MG TAB ONE (15:00)
[2023-11-03] MEDS ORDERED: clonazePAM 1 MG TAB ONE (15:00)
[2023-11-03] MEDS: TRAMADOL HCL 50 MG TAB PO PRN (15:03)
[2023-11-03] MEDS: clonazePAM 1 MG TAB PO PRN (15:04)
[2023-11-03] MEDS: METHYLPREDNISOLONE 40 MG INJ IV SCH (17:05)
[2023-11-03] MEDS: cloNIDine HCL 0.1 MG TAB ONE (18:28)
[2023-11-03] MEDS: AMLODIPINE 5 MG TAB ONE (18:33)
[2023-11-04 07:16] LABS: Absolute Lymphocytes (CBC) 0.8 K/uL (0.7-4.9); Absolute Monocytes 0.2 K/uL (0.1-1.3); Absolute Neutrophil 5.2 K/uL (1.8-8.0); Basophils % 0.1 % (0-1.3); Hematocrit 28.9 % (36.0-45.0); Hemoglobin 9.2 g/dL (12.0-15.0); Lymphocytes % 12.9 % (15.3-44.8); MCHC 31.9 g/dL (32.0-36.0); MCV 81.7 fL (80-100); MPV 7.4 fL (7.6-11.3); Monocytes % 2.5 % (3.3-12.3); Neutrophils % 84.5 % (41.7-73.7); Nucleated Red Blood Cells % 0.6 % (0-0); Platelets 300 thou/uL (152-406); RBC Red Blood Cell Count 3.54 M/uL (3.86-4.86); Red Cell Distribution Width 21.5 % (12.1-15.2)
[2023-11-04 07:29] LABS: Albumin/Globulin Ratio 0.8 (1.1-1.8); Anion Gap 12.3 mEq/L (5.0-15.0); Bilirubin Total 0.4 mg/dL (0.2-1.0); Potassium 4.3 mEq/L (3.5-5.1)
[2023-11-04] MEDS: LORazepam 2 MG/ML VIAL ONE ×2 (08:24→08:27)
--- NOTE | 2023-11-04 10:16 | ECHO ---
HEIGHT: 5 ft 3 in WEIGHT: 180 lb 0 oz DATE OF STUDY: 11/03/[address]: Segundo Toledo DO 2-DIMENSIONAL: YES M.MODE: YES DOPPLER: YES COLOR FLOW: YES TDS: PORTABLE: YES DEFINITY: BUBBLE STUDY: DIAGNOSIS: CONGESTIVE HEART FAILURE, NON ST ELEVATION MYOCARDIAL INFARCTION CARDIAC HISTORY: CATHERIZATION: NO SURGERY: NO PROSTHETIC VALVE: NO PACEMAKER: NO MEASUREMENTS (cm) DIASTOLIC (NORMALS) SYSTOLIC (NORMALS) IVSd 1.2 (0.6-1.2) LA Diam 3.8 (1.9-4.0) LVEF 39% LVIDd 3.8 (3.5-5.7) LVIDs 3.1 (2.0-3.5) %FS 19% LVPWd 1.3 (0.6-1.2) Ao Diam 3.1 (2.0-3.7) 2 DIMENSIONAL ASSESSMENT: RIGHT ATRIUM: NORMAL LEFT ATRIUM: NORMAL RIGHT VENTRICLE: NORMAL LEFT VENTRICLE: DEPRESSED EJECTION FRACTION TRICUSPID VALVE: NORMAL MITRAL VALVE: MODERATE MITRAL REGURGITATION PULMONIC VALVE: NORMAL AORTIC VALVE: MILD TO MODERATE AORTIC INSUFFICIENCY PERICARDIAL EFFUSION: NONE AORTIC ROOT: NORMAL LEFT VENTRICULAR WALL MOTION: MODERATE GLOBAL HYPOKINESIS DOPPLER/COLOR FLOW: SEE BELOW COMMENTS: 1. MODERATELY DEPRESSED LEFT VENTRICULAR EJECTION FRACTION 35-40% 2. MODERATE GLOBAL HYPOKINESIS 3. MODERATE MITRAL REGURGITAITON 4. MILD TO MODERATE AORTIC INSUFFICIENCY TECHNOLOGIST: JACKIE QUIROZ
[2023-11-04 11:12] VITALS: O2SAT 97
[2023-11-04 12:13] LABS: Specific Gravity 1.019 (1.005-1.030); Urine Bacteria None Seen /HPF (<20); Urine Bilirubin NEGATIVE (Negative); Urine Blood Negative (Negative); Urine Clarity Extremely Turbid (Clear); Urine Color Yellow (Yellow); Urine Culture Reflex Order NOT NEEDED; Urine Glucose NEGATIVE (Negative); Urine Ketones NEGATIVE (Negative); Urine Microscopic Reflex YN ORDER UMIC; Urine Mucus Slight /HPF (None Seen); Urine Nitrite NEGATIVE (Negative); Urine Protein 1+ (Negative); Urine RBC <5 /HPF (None Seen); Urine Urobilinogen Normal (Normal)
--- NOTE | 2023-11-04 12:26 | P.DS ---
Admission Date: 11/03/23 Discharge Date: 11/04/23 Disposition: ROUTINE DISCHARGE Discharge Condition: FAIR Reason for Admission: Chest Pain Brief History of Present Illness: Diagnosis Bipolar disorder Acute respiratory failure with hypoxia status post cocaine and marijuana use COPD exacerbation Chronic back pain Polysubstance abuse Vital Signs/Physical Exam: Temp Pulse Resp BP Pulse Ox 97.4 F 102 H 18 134/83 98 11/04/23 08:00 11/04/23 09:05 11/04/23 08:00 11/04/23 09:05 11/04/23 08:00 Laboratory Data at Discharge: WBC 6.20 thou/uL (4.3-10.9) 11/04/23 06:28 Hgb 9.2 g/dL (12.0-15.0) L 11/04/23 06:28 Hct 28.9 % (36.0-45.0) L 11/04/23 06:28 Plt Count 300 thou/uL (152-406) 11/04/23 06:28 PT 13.3 SECONDS (9.5-12.5) H 11/03/23 01:55 INR 1.22 11/03/23 01:55 APTT 29.5 SECONDS (24.3-36.9) 11/03/23 01:55 Sodium 136 mEq/L (136-145) 11/04/23 06:28 Potassium 4.3 mEq/L (3.5-5.1) 11/04/23 06:28 BUN 19 mg/dL (7-18) H 11/04/23 06:28 Creatinine 0.89 mg/dL (0.55-1.02) 11/04/23 06:28 Glucose 155 mg/dL (74-106) H 11/04/23 06:28 Magnesium 2.0 mg/dL (1.6-2.4) 11/03/23 01:55 Total Bilirubin 0.4 mg/dL (0.2-1.0) 11/04/23 06:28 AST 16 U/L (15-37) 11/04/23 06:28 ALT 32 U/L (13-56) 11/04/23 06:28 Alkaline Phosphatase 130 U/L (45-117) H 11/04/23 06:28 Lipase 24 U/L (13-75) 11/03/23 01:55 Home Medications: Divalproex Sodium [Depakote] 250 mg PO BID 01/15/23 Fluticasone/Umeclidin/Vilanter [Trelegy Ellipta 100-62.5-25] 1 each IH DAILY 30 Days #30 aero 05/04/23 Furosemide [Lasix*] 40 mg PO DAILY tab 05/19/23 Nitroglycerin [Nitrostat*] 0.4 mg SL UD PRN tab 05/19/23 Ipratropium Neb [Atrovent*] 0.5 mg NEB [id number] #60 amp 09/22/23 Blood Sugar Diagnostic [Test Strips] 1 each MC DAILY #100 strip 09/29/23 Blood-Glucose Meter [Glucocard Shine Connex Meter] 1 each MC DAILY #1 ea 09/29/23 Lancets [Glucocom Lancets] 1 each BID #100 ea 09/29/23 Metformin HCl 500 mg PO DAILY #30 tab 09/29/23 carvediloL [Carvedilol] 12.5 mg PO BID #60 tab 09/29/23 Aspirin 81 mg PO DAILY 11/03/23 Atorvastatin Calcium 20 mg PO DAILY 11/03/23 Duloxetine [Cymbalta *] 20 mg PO DAILY 11/03/23 Lactulose 30 ml PO TID PRN 11/03/23 Followup: Zachariah Quinteros MD [Primary Care Provider] -
[2023-11-04 12:30] LABS: Barbiturates NEGATIVE (NEGATIVE); Benzodiazepines POSITIVE (NEGATIVE); Cocaine POSITIVE (NEGATIVE); METHAMPHETAM NEGATIVE (NEGATIVE); Methadone NEGATIVE (NEGATIVE); Opiates NEGATIVE (NEGATIVE); Phencyclidine NEGATIVE (NEGATIVE); THC Cannibis POSITIVE (NEGATIVE)
[2023-11-04 12:34] VITALS: BP 138/79; TEMP 97.1
[2023-11-04] MEDS ORDERED: carvediloL 12.5 MG TAB PO SCH (21:00)
--- NOTE | 2023-11-04 23:45 | RAD REPORT ---
EXAM DESCRIPTION: XR Chest, 1 View CLINICAL HISTORY: The patient is 53 years old and is Female; DYSPNEA TECHNIQUE: Frontal view of the chest. COMPARISON: No relevant prior studies available. FINDINGS: Lungs: Mildly prominent interstitial markings which may indicate mild interstitial edema . No consolidation. Pleural space: Unremarkable. No pneumothorax. Heart: Unremarkable. Mediastinum: Unremarkable. Normal mediastinal contour. Bones/joints: No acute findings. IMPRESSION: Mildly prominent interstitial markings which may indicate mild interstitial edema. No co nsolidation. Electronically signed by: Zack Bingham MD 11/03/2023 02:31 AM CDT Due to temporary technical issues with the PACS/Fluency reporting system, reports are being signed by the in house radiologists without review as a courtesy to insure prompt reporting. The interpreting radiologist is fully responsible for the content of the report.
== END 2023-11-04 15:57 | disposition home or self-care (01) ==
LOC: ER 01:02 → ERHOLD 04:10 → 4TH 15:07
PROVIDERS: ADMIT Family Medicine; ATTEND Internal Medicine
DX: I21.4 Non-ST elevation (NSTEMI) myocardial infarction (principal); J44.1 Chronic obstructive pulmonary disease with (acute) exacerbation; J96.01 Acute respiratory failure with hypoxia; I50.43 Acute on chronic combined systolic (congestive) and diastolic (congestive) heart failure; I25.2 Old myocardial infarction; I10 Essential (primary) hypertension; F41.9 Anxiety disorder, unspecified; M19.90 Unspecified osteoarthritis, unspecified site; F31.9 Bipolar disorder, unspecified; J44.9 Chronic obstructive pulmonary disease, unspecified; G89.29 Other chronic pain; F32.A Depression, unspecified; K57.92 Diverticulitis of intestine, part unspecified, without perforation or abscess without bleeding; F17.210 Nicotine dependence, cigarettes, uncomplicated; F14.10 Cocaine abuse, uncomplicated; F12.90 Cannabis use, unspecified, uncomplicated; Z85.41 Personal history of malignant neoplasm of cervix uteri
CPT/HCPCS: 93005; 93306; 87040 ×2; 87088; 85025 ×2; 81001 ×2; 87086; 80048; 36415 ×2; 83735; 82550; 85610; 82947; 85379; 80076; 83605 ×2; 85730; 84484 ×4; 83690; 80053; 83880; 80307 ×2; 71045; 94640 ×6; 82805 ×2; 94760 ×3; 96372; 99285; 82077; 36600; J1940 ×3; J7613; J7644 ×7; J1650 ×2; J2930; J2405 ×3; J2920 ×3; J0696; G0378; J7050

== ENCOUNTER 2023-11-09 09:02 | Emergency (ER) | payer OTHER ==
[2023-11-09] MEDS ORDERED: DIAZEPAM 5 MG TABLET ONE (09:18)
--- OUTSIDE RECORDS SUMMARY | 2023-11-09 09:27 | XMS REPORT | Continuity of Care Document ---
Author Name Unknown Address [address] [facility] [address] [place] [address] [facility] thconnect Address [address] [facility] [place] [address] Care Team Providers Care Steel Sash Erector Name Role Phone Aneta Silva Primary Care Physician PANKAJ ZAMORA Attending Clinician Un available AYDEE GO Attending Clinician Unavailable CARA BURGESS Attending Clinician Unavailab ADAM Cabrera Attending Clinician Unavailable THOMSA LOZOYA Attending Clinician Nina MARIAH Quiroga Attending Clinician Unavailable MORALES BALL Attending Clinician Unavailab AARON Vera Attending Clinician Unavailable GUSTAVO DELANEY Attending Clinician Unavailable MYLA MIJARES Attending Clinician Unavailable JUANY GREEN Attending Clinician Unavailable PROVIDER, CAMPAIGNS Attending Clinician Unavaila EFRA Mayo Attending Clinician Un available SIDDHARTH STANFORD Attending Clinician Unavailекатерина GARRETT MD Attending Clinician Unavailab SHY Kelly Attending Clinician Unavailable SARAI JULES Attending Clinician Unavaila YONATAN Juarez Attending Clinician Unava ilable SELIN FERRER Attending Clinician Unavailable Nir ELIZONDO, London Dixon Attending Clinician Nina vailable Sabas ELIZONDO, Pankaj Bernal Attending Clinician Selin Fry DO Attending Clinician [phone] Bud ELIZONDO, Selin Attending Clinician [phone] DEMETRIUS TOBAR Attending Clinician Unavailab KETAN Armenta Attending Clinician Unavail able Kael BELTRAN, Ketan Sanders Attending Clinician [phone] BRIAN BRYAN Attending Clinician Unavailable Brian Bryan DO Attending Clinician [phone] Cara Burgess MD Attending Clinician [phone] Aydee Go MD Attending Clinician [phone] System, Provider Not In Attending Clinician Unav ailable Dallas Gomez Attending Clinician [phone] Adam Garcia MD Attending Clinician [phone] Harry Newsome MD Attending Clinician +[phone] Rocael ELIZONDO, Antwon Mccrary Attending Clinician + [phone] Yue Bui MD Attending Clinician [phone] Connie Davey MD Attending Clinician +[phone] Magui Aldridge MDeen Attending Clinician + [phone] Valerio ELIZONDO, Thomas Hopkins Attending Clinician CONNIE DAVEY Attending Clinician Unavailabl Alfonso Ruiz Attending Clinician Unavailable Alfonso Lopez Attending Clinician [phone] RITCHIE WARREN Attending Clinician Unavailable Briana ELIZONDO, Ritchie Stoner Attending Clinician [phone] Rk CAMPOS, Shy Stoner Attending Clinician [phone] Reji ELIZONDO, Halima Hummel Attending Clinician + [phone] Lucho ELIZONDO, Jen Olivia Attending Clinician [phone] Roxi ELIZONDO, Parrish Reyez Attending Clinici an ROXI, PARRISH CR Attending Clinician Unavaila LORENZA Mariscal Attending Clinician Unavailable Sav Rondon MD Attending Clinician [phone] Lorenza Lowry MD Attending Clinician [phone] Nicole LVN, Maria Teresa Attending Clinician [phone] CHANTEL BOJORQUEZ Attending Clinician CHANTEL Kelly Attending Clinician Jack Ibrahim MD, Brandyn Otoole Attending Clinician [phone] SELINA MARTINES Attending Clinician Unavailable Sapna Vargas DO Attending Clinician + [phone] Tyrel ELIZONDO, Glory Katz Attending Clinician + Selina Martines MD Attending Clinician [phone] Vaccine, Valencia Collettei Attending Clinician U chelis Pak MD, Jose Attending Clinician [phone] JOSE PAK Attending Clinician Unavailable NICHELLE VIRK Attending Clinician Unavaila Nichelle Lakhani Attending Clinician [phone] Doctor Unassigned, [place] Attending Clinician U chelsi Nava RN, Miky Attending Clinician UnavailFabrice Grady Attending Clinician [phone] Deo SPECIAL SYSTEMS TECHNICIAN, Lydia Attending Clinician [phone] Unknown, Attending Attending Clinician Unavailab le UNKNOWN, ATTENDING Attending Clinician Unavailab monroe MITTALAanli S Attending Clinician [phone] Yehuda Arcos MD Attending Clinician [phone] PANKAJ ZAMORA Admitting Clinician Un available CARA BURGESS Admitting Clinician Unavailab ADAM Cabrera Admitting Clinician Unavailable MARIAH ALDRIDGE Admitting Clinician Unavailable CONNIE DAVEY Admitting Clinician UnavailAlfonso Oh Admitting Clinician Unavailable RITCHIE WARREN Admitting Clinician Unavailable JEN GELLER Admitting Clinician Unavaila LORENZA Mariscal Admitting Clinician Unavailable Lorenza Lowry MD Admitting Clinician [phone] BRANDYN IBRAHIM Admitting Clinician Unavailable Brandyn Ibrahim MD Admitting Clinician [phone] GLORY ESTEVES Admitting Clinician Unav ailable NICHELLE VIRK Admitting Clinician Unavaila yaya Payers Payer Name Policy Type Policy Number Effective Date Expirati on Date Source [facility] [id number] 2023 00:00:00 AMBETTER [id number] 2023 00:00:00 [facility] [place]AR [place] COP FOCUS 9 [id number] 2023 00:00:00 [facility] [id number] 2023 00:00:00 MEDICAID PENDING PENDING 2022 00:00:00 Problems Condition Name Condition Details Condition Category Status Onset Date Resolution Date Last Treatment Date Treating Clinician Comments Source Depression Depression Disease Active 09-29 00:00: 00 Cynthia gonzalez Anxiety Anxiety Disease Active 09-29 00:00: 00 Cynthia gonzalez CAD (coronary artery disease) CAD (coronary artery disease) Disease Active 09-29 00:00: 00 Cynthia Santoyo Externa lisa COPD (chronic obstructiv e pulmonary disease) (multi HCC) COPD (chronic obstructiv e pulmonary disease) (multi HCC) Disease Active 09-29 00:00: 00 Cynthia Santoyo Externa lisa History of colon polyps History of colon polyps Disease Active 09-29 00:00: 00 Cynthia Santoyo Externa lisa Marijuana use Marijuana use Disease Active 09-29 00:00: 00 Cynthia Santoyo Externa lisa Seizure (multi HCC) Seizure (multi HCC) Disease Active 09-29 00:00: 00 Cynthia Santoyo Externa lisa Tobacco use Tobacco use Disease Active 09-29 00:00: 00 Cynthia Erazoa lisa Type 2 diabetes mellitus with hyperglyce ortega, without long-term current use of insulin (multi HCC) Type 2 diabetes mellitus with hyperglyce ortega, without long-term current use of insulin (multi HCC) Disease Active 09-11 00:00: 00 Cynthia Garcia - Externa lisa CHF (congestiv e heart failure) (multi HCC) CHF (congestiv e heart failure) (multi HCC) Disease Active 09-11 00:00: 00 Cynthia Garcia - Externa lisa Bipolar disorder (multi HCC) Bipolar disorder (multi HCC) Disease Active 09-11 00:00: 00 Cynthia Santoyo Externa lisa Seizure disorder (multi HCC) Seizure disorder (multi HCC) Disease Active 09-11 00:00: 00 Cynthia Santoyo Externa lisa Prediabete s Prediabete s Disease Active 09-11 00:00: 00 Cynthia Santoyo Externa lisa Bilateral leg weakness Bilateral leg weakness Disease Active 2022-07 00:00: 00 [facility] Bilateral leg weakness Bilateral leg weakness Disease Active 2022-07 00:00: 00 [facility] Pneumonia Pneumonia Disease Active 2022-07 00:00: 00 [facility] Cavitary lesion of lung Cavitary lesion of lung Disease Active 2022-07 00:00: 00 [facility] Cervical myelopathy Cervical myelopathy Disease Recurre nce 2022-07 00:00: 00 [facility] Cervical disc disorder with myelopathy , high cervical region Cervical disc disorder with myelopathy , high cervical region Disease Active 2022-07 00:00: 00 [facility] Cord compressio n Cord compressio n Disease Recurre nce - 00:00: 00 [facility] Cauda equina compressio n Cauda equina compressio n Disease Active 03-30 00:00: 00 [facility] Seizure Seizure Disease Recurre sce -14 00:00: 00 [facility] Cardiomyop athy Cardiomyop athy Disease Active 08-01 00:00: 00 [facility] NSVT (nonsustai keisha ventricula r tachycardi a) NSVT (nonsustai keisha ventricula r tachycardi a) Disease Active 08-01 00:00: 00 [facility] Chest pain, unspecifie d type Chest pain, unspecifie d type Disease Active 07-31 00:00: 00 [facility] Elevated brain natriureti c peptide (BNP) level Elevated brain natriureti c peptide (BNP) level Disease Active 07-31 00:00: 00 [facility] Coronary artery disease involving [place] coronary artery of [place] heart without angina pectoris Coronary artery disease involving [place] coronary artery of [place] heart without angina pectoris Disease Active 07-31 00:00: 00 [facility] Snores Snores Disease Active 07-31 00:00: 00 [facility] Cigarette smoker Cigarette smoker Disease Active 07-31 00:00: 00 [facility] Primary hypertensi on Primary hypertensi on Disease Active 07-31 00:00: 00 [facility] Other hyperlipid emia Other hyperlipid emia Disease Active 07-31 00:00: 00 [facility] Coronary artery disease involving [place] coronary artery of [place] heart without angina pectoris Coronary artery disease involving [place] coronary artery of [place] heart without angina pectoris Disease Active 1-12 00:00: 00 [facility] Chronic bilateral low back pain with bilateral sciatica Chronic bilateral low back pain with bilateral sciatica Disease Active 2021-07 0-17 00:00: 00 [facility] 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 Disease Active 04-15 00:00: 00 [facility] Neuroforam inal stenosis of cervical spine Neuroforam inal stenosis of cervical spine Disease Active 04-15 00:00: 00 [facility] Stroke-lik e symptoms Stroke-lik e symptoms Disease Active 04-13 00:00: 00 [facility] Bipolar disorder, in partial remission, most recent episode manic Bipolar disorder, in partial remission, most recent episode manic Disease Active 09-27 00:00: 00 [facility] Neuroforam inal stenosis of lumbar spine Neuroforam inal stenosis of lumbar spine Disease Active 09-27 00:00: 00 [facility] Bilateral acute otitis media, recurrence not specified, unspecifie d otitis media type Bilateral acute otitis media, recurrence not specified, unspecifie d otitis media type Disease Active 09-27 00:00: 00 [facility] Lumbar spinal stenosis Lumbar spinal stenosis Disease Active 09-27 00:00: 00 [facility] Right-side d low back pain with sciatica, sciatica laterality unspecifie d Right-side d low back pain with sciatica, sciatica laterality unspecifie d Disease Active 09-27 00:00: 00 [facility] Generalize d anxiety disorder Generalize d anxiety disorder Disease Active 09-27 00:00: 00 [facility] Agoraphobi a Agoraphobi a Disease Active 09-27 00:00: 00 [facility] Bipolar disorder, in partial remission, most recent episode manic Bipolar disorder, in partial remission, most recent episode manic Disease Active 09-27 00:00: 00 [facility] Obsessive compulsive disorder Obsessive compulsive disorder Disease Active 09-27 00:00: 00 [facility] Breast mass, left Breast mass, left Disease Active 09-17 00:00: 00 [facility] Anxiety Anxiety Disease Active 09-17 00:00: 00 [facility] Lower back pain Lower back pain Disease Active 09-17 00:00: 00 [facility] High blood pressure High blood pressure Disease Active 09-17 00:00: 00 [facility] COPD (chronic obstructiv e pulmonary disease) COPD (chronic obstructiv e pulmonary disease) Disease Active 09-17 00:00: 00 [facility] Obesity Obesity Disease Active 09-17 00:00: 00 [facility] Allergies, Adverse Reactions, Alerts Allergy Name Allergy Type Status Severity Reaction(s) Onset Date Inactive Date Treating Clinician Comments Source FLUOXETI NE Allergy Active 03-29 00:00: 00 [facility] GREEN TEA Allergy Active High Other 03-29 00:00: 00 [facility] LEVETIRA CETAM Allergy Active High N\\T\\V 03-29 00:00: 00 [facility] Green Tea Propensi ty to adverse reaction s Active 03-29 00:00: 00 Seizure like activity [facility] Levetira cetam Propensi ty to adverse reaction s Active Nausea And Vomiting 03-29 00:00: 00 Intensifi es seizure [facility] Fluoxeti ne Propensi ty to adverse reaction s Active 03-29 00:00: 00 [facility] Green Tea Drug Allergy Active Other (See Comments) 03-29 00:00: 00 Seizure like activity [facility] Levetira cetam Drug Allergy Active Nausea And Vomiting 03-29 00:00: 00 Intensifi es seizure [facility] Levetira cetam Propensi ty to adverse reaction s Active Other - 00:00: 00 Intensifi es seizure Makes seizures worse Makes seizures worse Intensifi es seizure Cynthia Seybold - Externa l LEVETIRA CETAM DRUG INGREDI Active Other-Cmnt 11-17 00:00: 00 [facility] Levetira cetam Propensi ty to adverse reaction s Active Other - See comments 11-17 00:00: 00 Makes seizures worse [facility] Green Tea Propensi ty to adverse reaction s Active 08-02 00:00: 00 [facility] GREEN TEA Allergy Active 08-02 00:00: 00 [facility] FLUOXETI NE Allergy Active Med Rash 08-02 00:00: 00 [facility] Fluoxeti ne Propensi ty to adverse reaction s Active Rash 08-02 00:00: 00 [facility] Fluoxeti ne Propensi ty to adverse reaction s Active Unknown - See comments 03-25 00:00: 00 [facility] FLUOXETI NE DRUG INGREDI Active Unknown-Cmnt 03-25 00:00: 00 [facility] Diclofen ac Propensi ty to adverse reaction s Active Anxiety 11-20 00:00: 00 Cynthia Seybold - Externa l DICLOFEN AC DRUG INGREDI Active HYPERTENSION 11-20 00:00: 00 [facility] Green Tea Propensi ty to adverse reaction s Active Anxiety 08-10 00:00: 00 Seizure like activity Seizures Seizures Seizure like activity Cynthia Seybold - Externa l GREEN TEA DRUG INGREDI Active Med Other-Cmnt 08-10 00:00: 00 [facility] Green Tea Propensi ty to adverse reaction s to drug Active Other - See comments 08-10 00:00: 00 Seizures [facility] FLUOXETI NE HCL DRUG INGREDI Active Hives 03-19 00:00: 00 [facility] Fluoxeti ne Hcl Propensi ty to adverse reaction s Active Hives 03-19 00:00: 00 [facility] Family History Family Member Diagnosis Comments Start Date Stop Date Sourc e Natural mother Alcohol abuse [facility] Natural mother Stroke [facility] Natural mother Alcohol abuse C [facility] Natural mother Cancer [facility] Natural mother Diabetes [facility] Natural mother Heart disease [facility] Natural mother Hyperlipidemia [facility] Natural mother Kidney disease [facility] Natural mother Stroke [facility] S [facility] Paternal uncle Diabetes [facility] Social History Social Habit Start Date Stop Date Quantity Comments Source History SDOH Social Connections Get Together [facility] History SDOH Social Connections [facility] History SDOH Social Connections Membership [facility] History SDOH Social Connections Meetings [facility] History of tobacco use Cigarette Smoker Cynthia boyd - External History SDOH Alcohol Frequency [facility] History SDOH Alcohol Std Drinks [facility] History SDOH Alcohol Binge [facility] History SDOH Housing Homeless Last Year [facility] Sexual orientation C [facility] Tobacco use and exposure 2023-09-30 00:00:00 2023-09-30 00:00:00 Smokeless tobacco non-user Cynthia Garcia - External Education - What is the highest level of school you have completed or the highest degree you have received? 2023-09-30 00:00:00 2023-09-30 00:00:00 GED or equivalent Cynthia Garcia - External History of Social function 2023-08-03 00:00:00 2023-08-03 00:00:00 [facility] Alcohol intake 2023-06-02 00:00:00 2023-06-02 00:00:00 Current drinker of alcohol (finding) [facility] Exposure to SARS-CoV-2 (event) 2023-05-18 00:00:00 2023-05-28 07:28:00 Not sure [facility] History SDOH Housing Unable to Pay - In the last 12 months, was there a time when you were not able to pay the mortgage or rent on time? 2023-05-26 00:00:00 2023-05-26 00:00:00 Yes [facility] Cigarettes smoked current (pack per day) - Reported 2023-05-26 00:00:00 2023-05-26 00:00:00 [facility] Cigarette pack-years 2023-05-26 00:00:00 2023-05-26 00:00:00 [facility] History SDOH Housing Places Lived 2023-03-30 00:00:00 2023-03-30 00:00:00 1 [facility] Alcohol Comment 2023-03-29 00:00:00 2023-03-29 00:00:00 2x a week [facility] History SDOH Social Connections Phone 2022-08-01 00:00:00 2022-08-01 00:00:00 5 [facility] History SDOH Social Connections Living 2022-08-01 00:00:00 2022-08-01 00:00:00 5 [facility] History SDOH Physical Activity DPW 2022-08-01 00:00:00 2022-08-01 00:00:00 0 [facility] History SDOH Physical Activity MPS 2022-08-01 00:00:00 2022-08-01 00:00:00 0 [facility] History SDOH Financial 2022-08-01 00:00:00 2022-08-01 00:00:00 3 [facility] History SDOH Food Worry 2022-08-01 00:00:00 2022-08-01 00:00:00 1 [facility] History SDOH Food Scarcity 2022-08-01 00:00:00 2022-08-01 00:00:00 1 [facility] History SDOH Transport Med 2022-08-01 00:00:00 2022-08-01 00:00:00 2 [facility] History SDOH Transport Non-Med 2022-08-01 00:00:00 2022-08-01 00:00:00 2 [facility] Sex Assigned At 1970 00:00:00 1970 00:00:00 [facility] Smoking Status Start Date Stop Date Source Smokes tobacco daily 2023-09-30 00:00:00 Cynthia Sevaldo Guillen Never smoked tobacco Cynthia Guillen Ex-smoker 2023-05-26 00:00:00 2023-05-26 00:00:00 [facility] Medications Ordered Medication Name Filled Medication Name Start Date Stop Date Current Medication? Ordering Clinician Indication Dosage Frequency Signature (SIG) Comments Components Source Metformin HCl 500 MG oral Tablet 09-29 14:28: 11 Yes 500mg Take 1 tablet (500 mg total) by mouth daily (with breakfast) . Cynthia gonzalez Ibuprofen (MOTRIN) 200 MG oral Tablet 09-29 14:27: 32 09-29 00:00 :00 No 200mg [id number] 3D Take 1 tablet (200 mg total) by mouth every 8 hours as needed for pain. Cynthia gonzalez Carvedilol 12.5 MG oral Tablet 09-29 00:00: 00 Yes [id number] 12.5mg Take 1 tablet (12.5 mg total) by mouth in the morning and 1 tablet (12.5 mg total) in the evening. Take with meals. Cynthia gonzalez Duloxetine HCl [address] Particles 09-29 00:00: 00 Yes [id number] 20mg Take 1 capsule (20 mg total) by mouth daily. Cynthia gonzalez Acetaminoph en-Codeine (TYLENOL/CO DEINE #3) 300-30 MG oral Tablet 09-29 00:00: 00 Yes [id number] 1{tbl} Q.25D Take 1 tablet by mouth every 6 hours as needed for pain. Cynthia gonzalez Clonazepam 1 MG oral Tablet 09-29 00:00: 00 Yes [id number] 1mg QD Take 1 tablet (1 mg total) by mouth nightly as needed for anxiety. Cynthia gonzalez Fluticasone -Umeclidin- Vilant (Trelegy Ellipta) 100-62.5-25 MCG/ACT inhalation AEROSOL POWDER, BREATH ACTIVATED 09-29 00:00: 00 Yes [id number] 1{puff} Inhale 1 puff into the lungs [...] MG oral Tablet 09-11 00:00: 00 Yes [id number] 15mg QD Take 1 tablet (15 mg total) by mouth nightly as needed. Cynthia gonzalez Acetaminoph en-Codeine (TYLENOL/CO DEINE #3) 300-30 MG oral Tablet 09-11 00:00: 00 09-29 00:00 :00 No [id number] 1{tbl} Q.25D Take 1 tablet by mouth every 6 hours as needed for pain. Cynthia gonzalez DULoxetine (CYMBALTA) 60 MG capsule 09-09 00:00: 00 10-08 23:59 :00 No 60mg QD Take 1 capsule (60 mg total) by mouth daily for 30 days. [facility] varenicline (CHANTIX) 1 mg tablet 09-08 10:51: 03 Yes 1mg Q.5D Take 1 tablet (1 mg total) by mouth 2 (two) times daily Give with meals and with a full glass of water.. [facility] atorvastati n (LIPITOR) 20 MG tablet 09-08 10:51: 03 Yes 20mg QD Take 1 tablet (20 mg total) by mouth daily. [facility] Cyanocobala min (Vitamin B-12) 1000 MCG oral Tablet 09-08 00:00: 00 10-08 04:59 :00 Yes 1000ug Take 1 tablet (1,000 mcg total) by mouth daily. Cynthia gonzalez lidocaine (LIDODERM) 4 % patch 09-08 00:00: 00 10-07 23:59 :00 No 3{patch } Q24H Place 3 patches onto the skin daily for 30 days. [facility] metoprolol succinate (TOPROL-XL) 25 MG 24 hr tablet 09-07 16:47: 05 09-07 00:00 :00 No 25mg QD Take 1 tablet (25 mg total) by mouth daily. [facility] albuterol HFA (VENTOLIN HFA) 90 mcg/actuati on inhaler 09-07 16:47: 05 09-07 00:00 :00 No 1{puff} Inhale 1 puff by mouth via inhaler every 6 (six) hours as needed for Wheezing. [facility] fluticasone -umeclidin- vilanter (Trelegy Ellipta) 200-62.5-25 mcg DsDv 09-07 16:47: 05 09-07 00:00 :00 No QD Inhale by mouth via inhaler daily. [facility] Albuterol HFA 108 (90 Base) MCG/ACT IN [...] capsule 09-07 00:00: 00 10-06 23:59 :00 No .4mg QD Take 1 capsule (0.4 mg total) by mouth daily for 30 days. [facility] polyethylen e glycol (GLYCOLAX) 17 gram packet 09-07 00:00: 00 10-06 23:59 :00 No 17g Q.5D Take 17 g by mouth 2 (two) times daily for 30 days. [facility] gabapentin (NEURONTIN) 400 MG capsule 09-07 00:00: 00 10-06 23:59 :00 No 400mg Q.[id number] 3D Take 1 capsule (400 mg total) by mouth 3 (three) times daily for 30 days. [facility] furosemide (LASIX) 20 MG tablet 09-07 00:00: 00 10-06 23:59 :00 No 20mg QD Take 1 tablet (20 mg total) by mouth daily for 30 days. [facility] fluticasone -umeclidin- vilanter (Trelegy Ellipta) 200-62.5-25 mcg DsDv - 00:00: 00 10-06 23:59 :00 No 1{inhal ation} QD Inhale 1 Inhalation by mouth via inhaler daily for 30 days. [facility] metoprolol succinate (TOPROL-XL) 25 MG 24 hr tablet 09-07 00:00: 00 10-06 23:59 :00 No 25mg QD Take 1 tablet (25 mg total) by mouth daily for 30 days. [facility] lacosamide (VIMPAT) 100 mg in NaCl 0.9% (NS) 50 mL piggyback 08-12 21:15: 00 08-12 21:23 :00 No 100mg 100 mg, IV Piggyback, ONCE, 1 dose, On Thu08/12/23 at 1515, Administer over 30 Minutes, 50 mL
Facu lty member approving Restricted medication : BRIAN BRYAN [facility] Dicyclomine HCl 20 MG oral Tablet [...] total) by mouth daily for 5 days. [facility] varenicline (CHANTIX) 1 mg tablet 2022-07 19:45: 32 Yes 1mg Q.5D Take 1 tablet (1 mg total) by mouth 2 (two) times daily Give with meals and with a full glass of water.. [facility] atorvastati n (LIPITOR) 20 MG tablet 2022-07 19:45: 32 Yes 20mg QD Take 1 tablet (20 mg total) by mouth daily. [facility] metoprolol succinate (TOPROL-XL) 25 MG 24 hr tablet 2022-07 19:45: 32 09-07 00:00 :00 No 25mg QD Take 1 tablet (25 mg total) by mouth daily. [facility] albuterol HFA (VENTOLIN HFA) 90 mcg/actuati on inhaler 2022-07 19:45: 32 09-07 00:00 :00 No 1{puff} Inhale 1 puff by mouth via inhaler every 6 (six) hours as needed for Wheezing. [facility] fluticasone -umeclidin- vilanter (Trelegy Ellipta) 200-62.5-25 mcg DsDv 2022-07 19:45: 32 09-07 00:00 :00 No QD Inhale by mouth via inhaler daily. [facility] acetaminoph en-codeine (TYLENOL #3) 300-30 mg per tablet 2022-07 18:02: 00 06-16 00:00 :00 No 1{tbl} Take 1 tablet by mouth every 4 (four) hours as needed for Pain. [facility] DULoxetine (CYMBALTA) 30 MG capsule 2022-07 00:00: 00 09-08 00:00 :00 No 30mg QD Take 1 capsule (30 mg total) by mouth daily for 90 days. [facility] metroNIDAZO LE (FLAGYL) 500 MG tablet 2022-07 00:00: 00 07-04 23:59 :00 No 500mg Take 1 tablet (500 mg total) by mouth every 8 (eight) hours for 18 days. [facility] ciprofloxac in HCl (CIPRO) 500 MG tablet 2022-07 00:00: 00 07-04 23:59 :00 No 500mg Q.5D Take 1 tablet (500 mg total) by mouth 2 (two) times daily for 18 days. [facility] cyclobenzap rine (FLEXERIL) 10 MG tablet 2022-07 00:00: 00 06-26 23:59 :00 No 10mg [id number] 3D Take 1 tablet (10 mg total) by mouth 3 (three) times daily for 10 days. [facility] oxyCODONE (OXY-IR) 10 mg tablet 2022-07 00:00: 00 06-26 23:59 :00 No 10mg Take 1 tablet (10 mg total) by mouth every 8 (eight) hours as needed for up to 10 days. Max Daily Amount: 30 mg [facility] nystatin (MYCOSTATIN ) 100,000 unit/mL suspension 2022-07 00:00: 00 06-21 23:59 :00 No [id number] Q.25D Take 5 mLs (500,000 Units total) by mouth 4 (four) times daily for 5 days. [facility] dexAMETHaso ne (DECADRON) 2 MG tablet 2022-07 00:00: 00 06-08 23:59 :00 No 1mg Take 0.5 tablets (1 mg total) by mouth 2 (two) times daily with breakfast and dinner for 2 days. [facility] dexAMETHaso ne (DECADRON) 2 MG tablet 2022-07 00:00: 00 06-06 23:59 :00 No 2mg Take 1 tablet (2 mg total) by mouth 2 (two) times daily with breakfast and dinner for 1 day. [facility] metoprolol succinate (TOPROL-XL) 25 MG 24 hr tablet 2022-07 17:44: 21 Yes 25mg QD Take 1 tablet (25 mg total) by mouth daily. [facility] varenicline (CHANTIX) 1 mg tablet 2022-07 17:44: 21 Yes 1mg Q.5D Take 1 tablet (1 mg total) by mouth 2 (two) times daily Give with meals and with a full glass of water.. [facility] albuterol HFA (VENTOLIN HFA) 90 mcg/actuati on inhaler 2022-07 17:44: 21 Yes 1{puff} Inhale 1 puff by mouth via inhaler every 6 (six) hours as needed for Wheezing. [facility] fluticasone -umeclidin- vilanter (Trelegy Ellipta) 200-62.5-25 mcg DsDv 2022-07 17:44: 21 Yes QD Inhale by mouth via inhaler daily. [facility] atorvastati n (LIPITOR) 20 MG tablet 2022-07 17:44: 21 Yes 20mg QD Take 1 tablet (20 mg total) by mouth daily. [facility] acetaminoph en-codeine (TYLENOL #3) 300-30 mg per tablet 2022-07 17:44: 21 Yes 1{tbl} Take 1 tablet by mouth every 4 (four) hours as needed for Pain. [facility] Naloxone (NARCAN) 4 MG/0.1ML nasal Liquid 2022-07 00:00: 00 Yes 4mg 0.1 mL (4 mg total) as needed. Cynthia gonzalez senna (SENOKOT) 8.6 mg tablet 2022-07 00:00: 00 06-18 23:59 :00 No 17.2mg Q.5D Take 2 tablets (17.2 mg total) by mouth 2 (two) times daily for 14 days. [facility] cyclobenzap rine (FLEXERIL) 10 MG tablet 2022-07 00:00: 00 06-16 00:00 :00 No 10mg Q.[id number] 3D Take 1 tablet (10 mg total) by mouth 3 (three) times daily for 10 days. [facility] methocarbam oL (ROBAXIN) 500 MG tablet 2022-07 00:00: 00 06-16 00:00 :00 No 500mg Q.25D Take 1 tablet (500 mg total) by mouth 4 (four) times daily for 10 days. [facility] lactulose (CHRONULAC) 20 gram/30 mL solution 2022-07 00:00: 00 06-11 23:59 :00 No 20g Q.[id number] 3D Take 30 mLs (20 g total) by mouth 3 (three) times daily for 7 days. [facility] ondansetron (ZOFRAN-ODT ) 4 MG disintegrat ing tablet 2022-07 00:00: 00 06-11 23:59 :00 No 4mg Take 1 tablet (4 mg total) by mouth every 6 (six) hours as needed for up to 7 days. [facility] metoprolol succinate (TOPROL-XL) 25 MG 24 hr tablet 2022-07 15:23: 22 Yes 25mg QD Take 1 tablet (25 mg total) by mouth daily. [facility] varenicline (CHANTIX) 1 mg tablet 2022-07 15:23: 22 Yes 1mg Q.5D Take 1 tablet (1 mg total) by mouth 2 (two) times daily Give with meals and with a full glass of water.. [facility] albuterol HFA (VENTOLIN HFA) 90 mcg/actuati on inhaler 2022-07 15:23: 22 Yes 1{puff} Inhale 1 puff by mouth via inhaler every 6 (six) hours as needed for Wheezing. [facility] fluticasone -umeclidin- vilanter (Trelegy Ellipta) 200-62.5-25 mcg DsDv 2022-07 15:23: 22 Yes QD Inhale by mouth via inhaler daily. [facility] atorvastati n (LIPITOR) 20 MG tablet 2022-07 15:23: 22 Yes 20mg QD Take 1 tablet (20 mg total) by mouth daily. [facility] acetaminoph en-codeine (TYLENOL #3) 300-30 mg per tablet 2022-07 15:23: 22 Yes 1{tbl} Take 1 tablet by mouth every 4 (four) hours as needed for Pain. [facility] acetaminoph en-codeine (TYLENOL #3) 300-30 mg per tablet 2022-07 09:42: 02 Yes 1{tbl} Take 1 tablet by mouth every 4 (four) hours as needed for Pain. Max Daily Amount: 6 tablets [facility] varenicline (CHANTIX) 1 mg tablet 2022-07 09:40: 04 Yes 1mg Q.5D Take 1 tablet (1 mg total) by mouth 2 (two) times daily Give with meals and with a full glass of water.. [facility] albuterol HFA (VENTOLIN HFA) 90 mcg/actuati on inhaler 2022-07 09:40: 04 Yes 1{puff} Inhale 1 puff by mouth via inhaler every 6 (six) hours as needed for Wheezing. [facility] fluticasone -umeclidin- vilanter (Trelegy Ellipta) 200-62.5-25 mcg DsDv 2022-07 09:40: 04 Yes QD Inhale by mouth via inhaler daily. [facility] atorvastati n (LIPITOR) 20 MG tablet 2022-07 09:40: 04 Yes 20mg QD Take 1 tablet (20 mg total) by mouth daily. [facility] metoprolol succinate (TOPROL-XL) 25 MG 24 hr tablet 2022-07 09:13: 28 Yes 25mg QD Take 1 tablet (25 mg total) by mouth daily. [facility] Atorvastati n Calcium 20 MG oral Tablet [...] 1 tablet (40 mg total). Cynthia gonzalez Aspirin 81 MG oral Chewable Tablet 2022-07 016 00:00: 00 Yes 81mg 1 tablet (81 mg total). Cynthia gonzalez Fluticasone -Umeclidin- Vilant (Trelegy Ellipta) 100-62.5-25 MCG/ACT inhalation AEROSOL POWDER, BREATH ACTIVATED 2022-07 016 00:00: 00 09-29 00:00 :00 No 1{puff} [...] tablet (20 mg total) by mouth daily. [facility] aspirin 81 MG EC tablet 04-03 00:00: 00 07-02 23:59 :00 No 81mg QD Take 1 tablet (81 mg total) by mouth daily for 90 days. [facility] divalproex (DEPAKOTE) 500 MG EC tablet 04-03 00:00: 00 07-02 23:59 :00 No 500mg Q.5D Take 1 tablet (500 mg total) by mouth 2 (two) times daily for 90 days. [facility] lisinopriL (PRINIVIL,Z ESTRIL) 5 MG tablet 04-03 00:00: 00 05-28 00:00 :00 No 5mg QD Take 1 tablet (5 mg total) by mouth daily. [facility] clonazePAM (KlonoPIN) 0.5 MG tablet 04-03 00:00: 00 05-03 23:59 :00 No .25mg Take 0.5 tablets (0.25 mg total) by mouth 2 (two) times daily as needed for Anxiety for up to 30 days. Max Daily Amount: 0.5 mg [facility] HYDROcodone -acetaminop hen (NORCO 10-325) 10-325 mg per tablet 04-03 00:00: 00 04-13 23:59 :00 No 1{tbl} Take 1 tablet by mouth every 6 (six) hours as needed for up to 10 days. Max Daily Amount: 4 tablets [facility] methocarbam oL (ROBAXIN) 500 MG tablet 04-03 00:00: 00 04-13 23:59 :00 No 500mg Q.25D Take 1 tablet (500 mg total) by mouth 4 (four) times daily for 10 days. [facility] gabapentin (NEURONTIN) 300 MG capsule 04-02 00:00: 00 04-03 00:00 :00 No 300mg Q.[id number] 3D Take 1 capsule (300 mg total) by mouth 3 (three) times daily for 90 days. [facility] divalproex (DEPAKOTE) 500 MG EC tablet 04-02 00:00: 00 04-03 00:00 :00 No 500mg Q.5D Take 1 tablet (500 mg total) by mouth 2 (two) times daily for 90 days. [facility] clonazePAM (KlonoPIN) 0.5 MG tablet 04-02 00:00: 00 04-03 00:00 :00 No .25mg Take 0.5 tablets (0.25 mg total) by mouth 2 (two) times daily as needed for Anxiety for up to 30 days. Max Daily Amount: 0.5 mg [facility] HYDROcodone -acetaminop hen (NORCO 10-325) 10-325 mg per tablet 04-02 00:00: 00 04-03 00:00 :00 No 1{tbl} Take 1 tablet by mouth every 6 (six) hours as needed for up to 10 days. Max Daily Amount: 4 tablets [facility] methocarbam oL (ROBAXIN) 500 MG tablet 04-02 00:00: 00 04-03 00:00 :00 No 500mg Q.25D Take 1 tablet (500 mg total) by mouth 4 (four) times daily for 10 days. [facility] Metronidazo le 500 MG oral Tablet 01-17 [...] member approving Restricted medication : Alfonso ALVARADO [facility] ketorolac (TORADOL) injection 15 mg 12-11 18:15: 00 12-11 17:25 :00 No 15mg 15 mg, Slow IV Push, ONCE, 1 dose, On Arpita 12/11/22 at 1315, MICHAEL [facility] iopamidol (ISOVUE 370-500 mL) injection 80 mL 12-11 16:30: 00 12-11 16:27 :00 No [id number] 80mL 80 mL, Intravenou s, ONCE, 1 dose, On Arpita 12/11/22 at 1130, Routine [facility] nitroglycer in (NITROL) 2 % ointment 0.5 Inch 12-11 15:30: 00 12-11 14:31 :00 No .5[in_u s] 0.5 Inch, Transderma l (Apply To Skin), ONCE, 1 dose, On Thu12/11/22 at 1030, [facility] chewable [facility] 324 mg 12-11 15:30: 00 12-11 14:30 :00 No 324mg 324 mg, Oral, ONCE, 1 dose, On Thu12/11/22 at 1030, Routine [facility] ondansetron (ZOFRAN (PF)) injection 4 mg 12-11 15:30: 00 12-11 14:29 :00 No 4mg 4 mg, Slow IV Push, ONCE, 1 dose, On Thu12/11/22 at 1030, [facility] LORazepam (ATIVAN) injection 1 mg 12-11 15:00: 00 12-11 14:57 :00 No 1mg 1 mg, Slow IV Push, ONCE, 1 dose, On Thu12/11/22 at 1000, STAT [facility] Lacosamide (VIMPAT) 100 mg tablet 12-11 00:00: 00 Yes [id number] 100mg Take 1 tablet by mouth in the morning and 1 tablet in the evening. [facility] acetaminoph en-codeine (TYLENOL #3) 300-30 [...] 1 dose, On Thu11/17/22 at 2345, MICHAEL [facility] morpHINE (4 mg/mL) injection 4 mg 11-18 03:45: 00 11-18 03:38 :00 No 4mg 4 mg, Slow IV Push, ONCE, 1 dose, On Thu11/17/22 at 2245, Routine [facility] methocarbam oL (ROBAXIN) injection 1,000 mg 11-18 00:30: 00 11-17 23:47 :00 No 1000mg 1,000 mg, Intravenou s, ONCE, 1 dose, On Thu11/17/22 at 1930, [facility] methocarbam oL 500 mg tablet 11-18 00:00: 00 Yes [id number] 1000mg Take 2 tablets by mouth 4 (four) times daily as needed for Pain (scale 7-10). [facility] acetaminoph en-codeine 300-60 mg tablet 11-18 00:00: 00 11-26 04:59 :00 No [id number] 1{tbl} Take 1 tablet by mouth every 6 (six) hours as needed for Pain for up to 7 days. Indication s: acute pain [facility] ketorolac (TORADOL) injection 15 mg 11-18 00:00: 00 11-17 23:08 :00 No 15mg 15 mg, Slow IV Push, ONCE, 1 dose, On Thu11/17/22 at 1900, Routine [facility] morpHINE (4 mg/mL) injection 4 mg 11-17 23:45: 00 11-17 23:49 :00 No 4mg 4 mg, Slow IV Push, ONCE, 1 dose, On Thu11/17/22 at 1845, Routine [facility] ondansetron (ZOFRAN (PF)) injection 4 mg 11-17 23:15: 00 11-17 23:06 :00 No 4mg 4 mg, Slow IV Push, ONCE, 1 dose, On 11/17/22 at 1815, MICHAEL [facility] lisinopriL (PRINIVIL,Z ESTRIL) tablet 10 mg 08-02 15:00: 00 Yes 10mg 10 mg, Oral, DAILY, First dose on 08/02/22 at 0900, Until Discontinu ed, Routine [facility] predniSONE (DELTASONE) tablet 40 mg 08-02 15:00: 00 08-07 14:59 :00 No 40mg 40 mg, Oral, DAILY, 5 doses, First dose on Thu08/02/22 at 0900, Last dose on Thu08/06/22 at 0900, Routine [facility] morpHINE (2 mg/mL) injection 2 mg 08-02 03:29: 15 Yes 2mg 2 mg, Slow IV Push, Q4HPRN, Starting on Thu08/01/22 at 2129, Until Discontinu ed, Routine, Pain (scale 7-10) [facility] levETIRAcet am (KEPPRA) in NACL (ISO-OS) 1,000 mg/100 mL RTU 08-02 00:00: 00 Yes 1000mg 1,000 mg, IV Piggyback, Q12H, First dose on Thu08/01/22 at 1800, Until Discontinu ed, Administer over 15 Minutes, 100 mL [facility] MULTIVITAMI N ORAL 08-01 23:49: 34 Yes 1{tbl} Take 1 Tab by mouth daily. [facility] omega-3 fatty acids-vitam in E (FISH OIL) 1,000 mg capsule 08-01 23:49: 34 Yes 1g Take 1 g by mouth daily. [facility] loratadine (CLARITIN LIQUI-GEL) 10 mg capsule 08-01 23:49: 34 Yes Take by mouth daily. [facility] ondansetron 4 mg tablet 08-01 23:49: 34 Yes 4mg Take 4 mg by mouth every 8 (eight) hours as needed. [facility] pantoprazol e 40 mg EC tablet 08-01 23:49: 34 Yes 40mg Take 40 mg by mouth daily. [facility] omega-3 fatty acids-vitam in E (FISH OIL) 1,000 mg capsule 08-01 23:49: 34 Yes 1g Take 1 g by mouth daily. [facility] benzonatate (TESSALON PERLES) capsule 100 mg 08-01 20:00: 00 Yes 100mg 100 mg, Oral, Q8H, First dose on Thu08/01/22 at 1400, Until Discontinu ed, Routine [facility] ipratropium -albuteroL (DUONEB) 0.5 mg-3 mg(2.5 mg base)/3 mL nebulizer solution 3 mL 08-01 18:00: 00 Yes 3mL 3 mL, Inhalation , QID, First dose on Thu08/01/22 at 1200, Until Discontinu ed, Routine [facility] ipratropium -albuteroL (DUONEB) 0.5 mg-3 mg(2.5 mg base)/3 mL nebulizer solution 3 mL 08-01 17:07: 07 Yes 3mL 3 mL, Inhalation , QIDPRN, Starting on Thu08/01/22 at 1107, Until Discontinu ed, MICHAEL, Wheezing, Shortness of Breath [facility] sulfur hexafluorid e microsphr (LUMASON) injection 5 mL 08-01 17:00: 00 08-01 17:00 :00 No [id number] 5mL 5 mL, Intravenou s, ONCE, 1 dose, On Thu08/01/22 at 1100, Routine
hospitality team member approving Restricted medication : KYLEE MONTEZ [facility] pantoprazol e (PROTONIX) EC tablet 40 mg 08-01 15:00: 00 Yes 40mg 40 mg, Oral, DAILY, First dose on Thu08/01/22 at 0900, Until Discontinu ed, Routine [facility] aspirin chewable tablet 81 mg 08-01 15:00: 00 Yes 81mg 81 mg, Oral, DAILY, First dose on Thu08/01/22 at 0900, Until Discontinu ed, [facility]VASC[facility] 10 mg 08-01 15:00: 00 Yes 10mg 10 mg, Oral, DAILY, First dose on Thu08/01/22 at 0900, Until Discontinu ed, Routine [facility] levETIRAcet am (KEPPRA) tablet 500 mg 08-01 14:00: 00 08-01 23:56 :35 No 500mg 500 mg, Oral, BID, First dose on Thu08/01/22 at 0800, Until Discontinu ed, Routine [facility] carvediloL (COREG) tablet 6.25 mg 08-01 14:00: 00 08-01 17:29 :13 No 6.25mg 6.25 mg, Oral, BID MEALS, First dose on Thu08/01/22 at 0800, Until Discontinu ed, Routine [facility] levETIRAcet am (KEPPRA) in NACL (ISO-OS) 1,000 mg/100 mL RTU 08-01 06:45: 00 08-01 06:32 :00 No 1000mg 1,000 mg, IV Piggyback, ONCE, 1 dose, On Thu08/01/22 at 0045, Administer over 15 Minutes, 100 mL [facility] LORazepam (ATIVAN) injection 1 mg 08-01 05:52: 54 Yes 1mg 1 mg, Slow IV Push, Q4HPRN, Starting on Thu07/31/22 at 2352, Until Discontinu ed, Routine, Seizures, Agitation, Anxiety, ETOH / Cocaine Withdrawl [facility] foLIC acid (FOLATE) tablet 1 mg 08-01 05:45: 00 Yes 1mg 1 mg, Oral, DAILY, First dose on Thu07/31/22 at 2345, Until Discontinu ed, Routine [facility] thiamine (VITAMIN B1) tablet 100 mg 08-01 05:45: 00 Yes 100mg 100 mg, Oral, DAILY, First dose on Thu07/31/22 at 2345, Until Discontinu ed, Routine [facility] LORazepam (ATIVAN) injection 0.5 mg 08-01 05:30: 00 08-01 05:29 :00 No .5mg 0.5 mg, Slow IV Push, ONCE, 1 dose, On Thu07/31/22 at 2330, MICHAEL [facility] atorvastati n (LIPITOR) tablet 40 mg 08-01 03:00: 00 Yes 40mg 40 mg, Oral, QHS, First dose on Thu07/31/22 at 2100, Until Discontinu ed, Routine [facility] diphenhydrA MINE (BENADRYL) tablet 25 mg 08-01 00:32: 02 Yes 25mg 25 mg, Oral, Q6HPRN, Starting on Thu07/31/22 at 1832, Until Discontinu ed, Routine, Itching [facility] enoxaparin (LOVENOX) injection 40 mg 07-31 23:00: 00 Yes 40mg 40 mg, Subcutaneo us, DAILY, First dose on Thu07/31/22 at 1700, Until Discontinu ed, Routine [facility] morpHINE (2 mg/mL) injection 2 mg 07-31 23:00: 00 07-31 22:29 :00 No 2mg 2 mg, Slow IV Push, ONCE, 1 dose, On Thu07/31/22 at 1700, Routine [facility] HYDROcodone -acetaminop hen (NORCO) 10-325 mg tablet 1 tablet 07-31 22:01: 36 Yes 1{tbl} 1 tablet, Oral, Q6HPRN, Starting on Thu07/31/22 at 1601, Until Discontinu ed, Routine, Pain (scale 7-10) [facility] HYDROcodone -acetaminop hen (NORCO 5) 5-325 mg tablet 1 tablet 07-31 22:01: 34 08-02 22:00 :34 No 1{tbl} 1 tablet, Oral, Q6HPRN, Starting on Thu07/31/22 at 1601, Until 08/02/22 at 1600, Routine, Pain (scale 4-6) [facility] acetaminoph en (TYLENOL) tablet 650 mg 07-31 22:01: 33 Yes 650mg 650 mg, Oral, Q6HPRN, Starting on Arpita 07/31/22 at 1601, Until Discontinu ed, Routine, Pain (scale 1-3) [facility] ketorolac (TORADOL) injection 15 mg 07-31 21:45: 00 07-31 20:50 :00 No 15mg 15 mg, Slow IV Push, ONCE, 1 dose, On Arpita 07/31/22 at 1545, Routine [facility] ondansetron (ZOFRAN (PF)) injection 4 mg 07-31 21:00: 00 07-31 20:47 :00 No 4mg 4 mg, Slow IV Push, ONCE, 1 dose, On Arpita 07/31/22 at 1500, MICHAEL [facility] furosemide (LASIX) injection 40 mg 07-31 20:15: 00 Yes 40mg 40 mg, Slow IV Push, Q12H, First dose on Arpita 07/31/22 at 1415, Until Discontinu ed, Routine [facility] methylpredn isolone sod succ (SOLU-MEDRO L) injection 125 mg 07-31 19:30: 00 07-31 18:54 :00 No 125mg 125 mg, Slow IV Push, ONCE NOW, 1 dose, On Arpita 07/31/22 at 1330, MICHAEL [facility] ipratropium -albuteroL (DUONEB) 0.5 mg-3 mg(2.5 mg base)/3 mL nebulizer solution 3 mL 07-31 19:30: 00 07-31 18:48 :00 No 3mL 3 mL, Inhalation , ONCE, 1 dose, On Arpita 07/31/22 at 1330, MICHAEL [facility] pantoprazol e 40 mg EC tablet 07-31 17:15: 40 Yes 40mg Take 40 mg by mouth daily. [facility] MULTIVITAMI N ORAL 07-31 15:50: 57 Yes 1{tbl} Take 1 Tab by mouth daily. [facility] loratadine (CLARITIN LIQUI-GEL) 10 mg capsule 07-31 15:50: 57 Yes Take by mouth daily. [facility] ondansetron 4 mg tablet 07-31 15:50: 57 Yes 4mg Take 4 mg by mouth every 8 (eight) hours as needed. [facility] omega-3 fatty acids-vitam in E (FISH OIL) 1,000 mg capsule 07-31 15:21: 27 Yes 1g Take 1 g by mouth daily. [facility] TAKE ONE (1) TABLET(S) BY MOUTH THREE TIMES A DAY NEEDED. 07-28 00:00: 00 No Methylpredn isolone 4 mg tablet 2021-07 00:00: 00 05-12 04:59 :00 No [id number] 4mg Take 1 tablet through enteral tube in the morning for 1 dose. [facility] Methylpredn isolone 4 mg tablet 2021-07 00:00: 00 05-11 04:59 :00 No [id number] 4mg Take 1 tablet through enteral tube every 12 (twelve) hours for 2 doses. [facility] MULTIVITAMI N ORAL 2021-07 14:44: 48 Yes 1{tbl} Take 1 Tab by mouth daily. [facility] omega-3 fatty acids-vitam in E (FISH OIL) 1,000 mg capsule 2021-07 14:44: 48 Yes 1g Take 1 g by mouth daily. [facility] loratadine (CLARITIN LIQUI-GEL) 10 mg capsule 2021-07 14:44: 48 Yes Take by mouth daily. [facility] ondansetron (ZOFRAN) 4 mg tablet 2021-07 14:44: 48 Yes 4mg Take 4 mg by mouth every 8 (eight) hours as needed. [facility] pantoprazol e (PROTONIX) 40 mg EC tablet 2021-07 14:44: 48 Yes 40mg Take 40 mg by mouth daily. [facility] DULoxetine (CYMBALTA) capsule 30 mg 2021-07 14:00: 00 Yes 30mg 30 mg, Oral, DAILY, First dose on Thu05/08/22 at 0900, Until Discontinu ed, Routine [facility] divalproex (DEPAKOTE) EC tablet 1,000 mg 2021-07 13:00: 00 Yes 1000mg 1,000 mg, Oral, BID, First dose (after last modificati on) on Thu05/08/22 at 0800, Until Discontinu ed, Routine [facility] Methylpredn isolone (MEDROL) tablet 4 mg 2021-07 08:50: 10 05-09 08:59 :00 No 4mg 4 mg, Oral, Q8H TAPER, 3 doses, First dose on Thu05/08/22 at 0400, Last dose on Thu05/08/22 at 2000, Routine [facility] acetaminoph en-codeine (TYLENOL #3) 300-30 mg tablet 1 tablet 2021-07 04:07: 01 Yes 1{tbl} 1 tablet, Oral, Q4HPRN, Starting on Thu05/07/22 at 2307, Until Discontinu ed, Routine, Pain (scale 7-10) [facility] morpHINE (2 mg/mL) injection 2 mg 2021-07 03:03: 15 Yes 2mg 2 mg, Slow IV Push, Q4HPRN, Starting on Thu05/07/22 at 2203, Until Discontinu ed, Routine, Pain (scale 7-10) [facility] LORazepam (ATIVAN) tablet 1 mg 2021-07 00:02: 18 Yes 1mg 1 mg, Oral, Q6HPRN, Starting on Thu05/07/22 at 1902, Until Discontinu ed, Routine, Anxiety [facility] cyclobenzap rine 5 mg tablet 2021-07 00:00: 00 Yes [id number] 5mg Take 1 tablet by mouth in the morning and 1 tablet at noon and 1 tablet in the evening. [facility] DULoxetine (CYMBALTA) 30 mg capsule 2021-07 00:00: 00 06-08 05:59 :00 No [id number] 60mg Take 2 capsules by mouth in the morning for 30 days. [facility] divalproex (DEPAKOTE) 250 mg EC tablet 2021-07 00:00: 06-08 05:59 :00 No [id number] 750mg Take 3 tablets by mouth every 8 (eight) hours for 30 days. [facility] LORazepam 1 mg tablet 2021-07 00:00: 05-19 04:59 :00 No [id number] 1mg Take 1 tablet by mouth every 6 (six) hours as needed for Anxiety or Agitation for up to 10 days. [facility] acetaminoph en-codeine 300-30 mg tablet 2021-07 00:00: 00 05-16 04:59 :00 No [id number] 1{tbl} Take 1 tablet by mouth every 4 (four) hours as needed for Pain (scale 7-10) for up to 7 days. Indication s: acute pain [facility] Methylpredn isolone 4 mg tablet 2021-07 00:00: 00 05-10 04:59 :00 No [id number] 4mg Take 1 tablet by mouth every 8 (eight) hours for 3 doses. [facility] divalproex (DEPAKOTE) EC tablet 750 mg 2021-07 01:00: 00 05-08 09:40 :23 No 750mg 750 mg, Oral, BID, First dose on Thu05/06/22 at 2000, Until Discontinu ed, Routine [facility] levETIRAcet am (KEPPRA) tablet 1,500 mg 2021-07 13:00: 00 05-06 18:38 :22 No 1500mg 1,500 mg, Oral, BID, First dose (after last modificati on) on Thu05/06/22 at 0800, Until Discontinu ed, Routine [facility] levETIRAcet am (KEPPRA) in NACL (ISO-OS) 1,000 mg/100 mL RTU 2021-07 05:00: 00 05-06 05:46 :00 No 1000mg 1,000 mg, IV Piggyback, ONCE, 1 dose, On Thu05/06/22 at 0000, Administer over 15 Minutes, 100 mL [facility] methocarbam oL (ROBAXIN) tablet 500 mg 2021-07 02:15: 00 05-06 23:21 :42 No 500mg 500 mg, Oral, QID, First dose on Thu05/05/22 at 2115, Until Discontinu ed, Routine [facility] LORazepam (ATIVAN) tablet 2 mg 2021-07 01:30: 00 05-06 01:03 :00 No 2mg 2 mg, Oral, ONCE, 1 dose, On Thu05/05/22 at 2030, Routine [facility] levETIRAcet am (KEPPRA) tablet 1,000 mg 2021-07 01:00: 00 05-06 04:48 :06 No 1000mg 1,000 mg, Oral, BID, First dose on Thu05/05/22 at 2000, Until Discontinu ed, Routine [facility] enoxaparin (LOVENOX) injection 40 mg 2021-07 00:15: 00 Yes 40mg 40 mg, Subcutaneo us, Q24H, First dose on Thu05/05/22 at 1915, Until Discontinu ed, Routine [facility] levETIRAcet am (KEPPRA) in NACL (ISO-OS) 1,000 mg/100 mL RTU 2021-07 19:45: 00 05-05 20:05 :00 No 1000mg 1,000 mg, IV Piggyback, ONCE, 1 dose, On Thu05/05/22 at 1445, Administer over 15 Minutes, 100 mL [facility] clonazePAM (KLONOPIN) tablet 0.5 mg 2021-07 19:30: 00 Yes .5mg 0.5 mg, Oral, BID, First dose on Thu05/05/22 at 1430, Until Discontinu ed, Routine [facility] ibuprofen (IBU) tablet 600 mg 2021-07 19:30: 00 Yes 600mg 600 mg, Oral, TID MEALS, First dose on Thu05/05/22 at 1430, Until Discontinu ed, Routine [facility] gabapentin (NEURONTIN) capsule 300 mg 2021-07 19:30: 00 Yes 300mg 300 mg, Oral, TID, First dose on Thu05/05/22 at 1430, Until Discontinu ed, Routine [facility] cyclobenzap rine (FLEXERIL) tablet 5 mg 2021-07 19:30: 00 Yes 5mg 5 mg, Oral, TID, First dose on Thu05/05/22 at 1430, Until Discontinu ed, Routine [facility] acetaminoph en (TYLENOL) tablet 1,000 mg 2021-07 19:30: 00 Yes 1000mg 1,000 mg, Oral, Q8H, First dose on Thu05/05/22 at 1430, Until Discontinu ed, Routine [facility] pantoprazol e (PROTONIX) EC tablet 40 mg 2021-07 14:00: 00 Yes 40mg 40 mg, Oral, DAILY, First dose on Thu05/05/22 at 0900, Until Discontinu ed, Routine [facility] docusate (COLACE) capsule 100 mg 2021-07 14:00: 00 Yes 100mg 100 mg, Oral, DAILY, First dose on Thu05/05/22 at 0900, Until Discontinu ed, Routine [facility] HYDROcodone -acetaminop hen (NORCO) 10-325 mg tablet 1 tablet 2021-07 10:32: 02 05-05 19:18 :52 No 1{tbl} 1 tablet, Oral, Q6HPRN, Starting on Thu05/05/22 at 0532, Until Thu05/05/22 at 1418, Routine, Pain (scale 7-10) [facility] ondansetron (ZOFRAN (PF)) injection 4 mg 2021-07 06:49: 57 Yes 4mg 4 mg, Slow IV Push, Q6HPRN, Starting on Thu05/05/22 at 0149, Until Discontinu ed, Routine, Nausea and Vomiting (N/V) [facility] HYDROcodone -acetaminop hen (NORCO 5) 5-325 mg tablet 1 tablet 2021-07 06:49: 41 05-05 10:32 :14 No 1{tbl} 1 tablet, Oral, Q6HPRN, Starting on Thu05/05/22 at 0149, Until Thu05/05/22 at 0532, Routine, Pain (scale 7-10) [facility] acetaminoph en (TYLENOL) tablet 325 mg 2021-07 06:49: 39 05-05 19:18 :52 No 325mg 325 mg, Oral, Q4HPRN, Starting on Thu05/05/22 at 0149, Until Thu05/05/22 at 1418, Routine, Pain (scale 4-6) [facility] ondansetron (ZOFRAN) tablet 4 mg 2021-07 04:00: 00 05-05 03:26 :00 No 4mg 4 mg, Oral, ONCE, 1 dose, On Thu05/04/22 at 2300, Routine [facility] morpHINE (2 mg/mL) injection 2 mg 2021-07 04:00: 00 05-05 03:26 :00 No 2mg 2 mg, Slow IV Push, ONCE, 1 dose, On Thu05/04/22 at 2300, Routine [facility] aspirin 81 mg chewable tablet 04-16 00:00: 00 Yes [id number] 81mg Take 1 tablet by mouth in the morning. [facility] MULTIVITAMI N ORAL 04-15 17:39: 14 Yes 1{tbl} Take 1 Tab by mouth daily. [facility] omega-3 fatty acids-vitam in E (FISH OIL) 1,000 mg capsule 04-15 17:39: 14 Yes 1g Take 1 g by mouth daily. [facility] loratadine (CLARITIN LIQUI-GEL) 10 mg capsule 04-15 17:39: 14 Yes Take by mouth daily. [facility] ondansetron (ZOFRAN) 4 mg tablet 04-15 17:39: 14 Yes 4mg Take 4 mg by mouth every 8 (eight) hours as needed. [facility] pantoprazol e (PROTONIX) 40 mg EC tablet 04-15 17:39: 14 Yes 40mg Take 40 mg by mouth daily. [facility] lisinopril- hydrochloro thiazide 20-12.5 mg per tablet 04-15 15:58: 35 04-15 00:00 :00 No 1{tbl} Take 1 tablet by mouth daily. [facility] levetiracet am (KEPPRA ORAL) 04-15 15:58: 35 04-15 00:00 :00 No Take by mouth. [facility] acetaminoph en-codeine (TYLENOL #4) 300-60 mg tablet 1 tablet 04-15 05:39: 23 04-15 14:39 :42 No 1{tbl} 1 tablet, Oral, Q6HPRN, Starting on Thu04/15/22 at 0039, Until Thu04/15/22 at 0939, Routine, Pain (scale 4-6), Pain (scale 1-3) [facility] LORazepam (ATIVAN) tablet 2 mg 04-15 03:30: 00 04-15 10:27 :00 No 2mg 2 mg, Oral, ONCE, 1 dose, On Thu04/14/22 at 2230, Routine [facility] levETIRAcet am (KEPPRA) tablet 1,000 mg 04-15 02:45: 00 Yes 1000mg 1,000 mg, Oral, BID, First dose (after last modificati on) on Thu04/14/22 at 2145, Until Discontinu ed, Routine [facility] ketorolac (TORADOL) injection 15 mg 04-15 02:13: 00 04-15 02:22 :00 No 15mg 15 mg, Slow IV Push, ONCE, 1 dose, On Thu04/14/22 at 2115, Routine [facility] atorvastati n 40 mg tablet 04-15 00:00: 00 Yes [id number] 40mg Take 1 tablet by mouth at bedtime. [facility] levETIRAcet am 1,000 mg tablet 04-15 00:00: 00 05-08 00:00 :00 No [id number] 1000mg Take 1 tablet by mouth in the morning and 1 tablet in the evening. [facility] lidocaine 5 % (700 mg/patch) patch 04-15 00:00: 00 04-23 04:59 :00 No [id number] 1{patch } Apply 1 Patch to area(s) in the morning for 7 days. [facility] HYDROcodone -acetaminop hen 5-325 mg tablet 04-15 00:00: 00 04-21 04:59 :00 No [id number] 1{tbl} Take 1 tablet by mouth every 6 (six) hours as needed for Pain (scale 7-10) for up to 5 days. Indication s: acute pain [facility] lidocaine (LIDODERM) 5 % (700 mg/patch) patch 1 Patch 04-14 21:45: 29 Yes 1{patch } 1 Patch, Topical, Administer over 12 Hours, [id number], Starting on Thu04/14/22 at 1645, Until Discontinu ed, Routine, Localized pain [facility] aspirin chewable tablet 81 mg 04-14 21:30: 00 Yes 81mg 81 mg, Oral, DAILY, First dose on Thu04/14/22 at 1630, Until Discontinu ed, Routine [facility] acetaminoph en (TYLENOL) tablet 650 mg 04-14 21:29: 25 Yes 650mg 650 mg, Oral, Q6HPRN, Starting on Thu04/14/22 at 1629, Until Discontinu ed, Routine, Pain (scale 1-3), Temp > 38.5 C, Temp > 37.5 C [facility] HYDROcodone -acetaminop hen (NORCO) 10-325 mg tablet 1 tablet 04-14 21:29: 02 04-15 05:39 :41 No 1{tbl} 1 tablet, Oral, Q6HPRN, Starting on Thu04/14/22 at 1629, Until Thu04/15/22 at 0039, Routine, Pain (scale 7-10), Pain (scale 4-6) [facility] sulfur hexafluorid e microsphr (LUMASON) injection 5 mL 04-14 16:45: 00 04-14 16:45 :00 No [id number] 5mL 5 mL, Intravenou s, ONCE, 1 dose, On Thu04/14/22 at 1145, Routine
hospitality team member approving Restricted medication : [facility] clopidogreL (PLAVIX) 75 mg tablet 75 mg 04-14 14:00: 00 Yes 75mg 75 mg, Oral, DAILY, First dose on Thu04/14/22 at 0900, Until Discontinu ed, Routine [facility] pantoprazol e (PROTONIX) EC tablet 40 mg 04-14 14:00: 00 Yes 40mg 40 mg, Oral, DAILY, First dose on Thu04/14/22 at 0900, Until Discontinu ed, Routine [facility] atorvastati n (LIPITOR) tablet 40 mg 04-14 02:00: 00 Yes 40mg 40 mg, Oral, QHS, First dose on Thu04/13/22 at 2100, Until Discontinu ed, Routine [facility] LORazepam (ATIVAN) tablet 1 mg 04-14 01:30: 00 04-14 01:45 :00 No 1mg 1 mg, Oral, ONCE, 1 dose, On Thu04/13/22 at 2030, Routine [facility] methocarbam oL (ROBAXIN) tablet 500 mg 04-14 01:00: 00 Yes 500mg 500 mg, Oral, QID, First dose on Thu04/13/22 at 1999, Until Discontinu ed, Routine [facility] heparin (porcine) injection 5,000 Units 04-14 01:00: 00 Yes 5000U 5,000 Units, Subcutaneo us, Q12H, First dose on Thu04/13/22 at 2000, Until Discontinu ed, Routine [facility] acetaminoph en (TYLENOL) tablet 650 mg 04-14 00:23: 25 04-14 21:29 :42 No 650mg 650 mg, Oral, Q6HPRN, Starting on 04/13/22 at 1923, Until 04/14/22 at 1629, Routine, Pain (scale 1-3), Pain (scale 4-6), Temp > 38.5 C, Temp > 37.5 C [facility] lidocaine (LIDODERM) 5 % (700 mg/patch) patch 1 Patch 04-14 00:22: 00 04-14 13:51 :00 No 1{patch } 1 Patch, Topical, Administer over 12 Hours, ONCE, 1 dose, On 04/13/22 at 1930, Routine [facility] FENTanyl PF (SUBLIMAZE (PF)) injection 50 mcg 04-13 20:30: 00 04-13 19:22 :00 No 50ug 50 mcg, Slow IV Push, ONCE, 1 dose, On Thu04/13/22 at 1530, Routine [facility] aspirin chewable tablet 650 mg 04-13 20:15: 00 04-13 20:15 :00 No 650mg 650 mg, Oral, ONCE, 1 dose, On 04/13/22 at 1515, Routine [facility] clopidogreL (PLAVIX) 300 mg tablet 300 mg 04-13 20:00: 00 04-13 19:15 :00 No 300mg 300 mg, Oral, ONCE, 1 dose, On 04/13/22 at 1500, Routine [facility] ondansetron (ZOFRAN (PF)) injection 4 mg 04-13 19:30: 00 04-13 19:22 :00 No 4mg 4 mg, Slow IV Push, ONCE, 1 dose, On [place] 04/13/22 at 1430, [facility] iopamidol (ISOVUE 370-500 mL) injection 100 mL 04-13 18:31: 00 04-13 18:32 :00 No [id number] 100mL 100 mL, Intravenou s, ONCE, 1 dose, On [place] 04/13/22 at 1345, Routine [facility] NaCl 0.9% (NS) injection 5 mL 04-13 18:14: 11 Yes 5mL 5 mL, Slow IV Push, PRN - SEE INSTRUCTIO NS, Starting on [place] 04/13/22 at 1314, Until Discontinu ed, 10 mL [facility] aspirin chewable tablet 324 mg 11-24 14:00: 00 Yes 324mg 324 mg, Oral, DAILY, First dose on [place] 11/24/21 at 0900, Until Discontinu ed, Routine [facility] metoclopram iker HCl (REGLAN) injection 10 mg 11-23 22:30: 00 11-23 21:24 :00 No 10mg 10 mg, Slow IV Push, ONCE, 1 dose, On [facility] 11/23/21 at 1730, [facility] acetaminoph en (TYLENOL) tablet 1,000 mg 11-23 22:15: 00 11-23 21:09 :00 No 1000mg 1,000 mg, Oral, ONCE, 1 dose, On [facility] 11/23/21 at 1715, [facility] ondansetron (ZOFRAN (PF)) injection 4 mg 11-23 21:45: 00 11-23 20:30 :00 No 4mg 4 mg, Slow IV Push, ONCE, 1 dose, On [facility] 11/23/21 at 1645, [facility] NaCl 0.9% (NS) bolus infusion 1,000 mL 11-23 21:30: 00 11-23 21:56 :00 No 1000mL at 999 mL/hr, 1,000 mL, IV Infusion, ONCE, 1 dose, On 11/23/21 at 1630, MICHAEL [facility] LORazepam (ATIVAN) injection 4 mg 11-23 21:30: 00 11-23 20:23 :00 No 4mg 4 mg, Slow IV Push, ONCE, 1 dose, On 11/23/21 at 1630, STAT [facility] levETIRAcet am (KEPPRA) in NACL (ISO-OS) 1,500 mg/100 mL RTU 11-23 21:30: 00 11-23 20:47 :00 No 1500mg 1,500 mg, IV Piggyback, ONCE, 1 dose, On 11/23/21 at 1630, Administer over 15 Minutes, 100 mL [facility] Dose Unknown 2021-0 4-08 00:00: 00 [...] 2021-0 3-06 00:00: 00 No Dose Unknown 2021-0 3-06 00:00: 00 No Dose Unknown 2021-0 3-06 00:00: 00 No Dose Unknown 2022-0 3-06 00:00: 00 No Dose Unknown 3-06 00:00: 00 No Dose Unknown 3-06 00:00: 00 No Dose Unknown 3-06 00:00: 00 No Dose Unknown 3-06 00:00: 00 No Dose Unknown 3- 00:00: 00 No Dose Unknown 3-06 00:00: 00 No Wellbutrin XL 150 [...] y
Durat ion of Therapy: 7 days [facility] morpHINE injection 4 mg 03-17 01:58: 00 03-17 02:13 :00 No 4mg 4 mg, Slow IV Push, ONCE, 1 dose, 03/16/21 at 2100, STAT [facility] ondansetron (ZOFRAN (PF)) injection 4 mg [...] ONCE, 1 dose, 03/16/21 at 2100, STAT [facility] levoFLOXaci n 500 mg tablet 03-17 00:00: 00 03-24 04:59 :00 No [id number] 500mg Take 1 tablet by mouth daily for 6 days. [facility] predniSONE 10 mg tablet 03-17 00:00: 00 03-22 04:59 :00 No [id number] 30mg Take 3 tablets by mouth daily for 4 days. [facility] albuterol (VENTOLIN) inhaler 4 Puff 03-15 01:45: 00 03-15 00:44 :00 No [id number] 4{puff} 4 Puff, Inhalation , ONCE, 1 dose, [facility] 03/14/21 at 2044, Routine [facility] dexamethaso ne (DECADRON) injection 10 mg 03-15 01:45: 00 03-15 00:45 :00 No [id number] 10mg 10 mg, Intramuscu lar, ONCE, 1 dose, [place] 03/14/21 at 2045, Routine [facility] albuterol 2.5 mg /3 mL (0.083 %) nebulizer solution 03-15 00:00: 00 Yes [id number] 2.5mg Inhale 3 mL every 4 (four) hours as needed for Wheezing or Shortness of Breath. [facility] levETIRAcet am (KEPPRA) in NACL (ISO-OS) 1,000 mg/100 mL RTU 02-19 20:15: 00 02-19 19:30 :00 No 1000mg 1,000 mg, IV Infusion, ONCE, 1 dose, 02/19/21 at 1515, Administer over 15 Minutes, 100 mL [facility] levetiracet am (KEPPRA ORAL) 02-19 19:45: 33 Yes Take by mouth. [facility] LISINOPRIL- HYDROCHLORO THIAZIDE ORAL 02-19 19:41: 15 02-19 00:00 :00 No Take by mouth. [facility] dicyclomine (BENTYL) injection 20 mg 02-19 19:15: 00 02-19 19:04 :00 No 20mg 20 mg, Intramuscu lar, ONCE, 1 dose, 02/19/21 at 1415, Routine [facility] proMETHazin e (PHENERGAN) 25 mg in NaCl 0.9% (NS) 50 mL piggyback 02-19 19:15: 02-19 19:03 :00 No 25mg 25 mg, IV Piggyback, ONCE, 1 dose, 02/19/21 at 1415, 50 mL [facility] morpHINE injection 4 mg 02-19 17:15: 00 02-19 17:05 :00 No 4mg 4 mg, Slow IV Push, ONCE, 1 dose, 02/19/21 at 1215, STAT [facility] NaCl 0.9% (NS) bolus infusion 1,000 mL 02-19 17:15: 00 02-19 19:04 :00 No 1000mL at 999 mL/hr, 1,000 mL, IV Infusion, ONCE, 1 dose, Thu02/19/21 at 1215, STAT [facility] ondansetron (ZOFRAN (PF)) injection 4 mg 02-19 17:00: 00 02-19 15:59 :00 No 4mg 4 mg, Slow IV Push, ONCE, 1 dose, Thu02/19/21 at 1200, MICHAEL [facility] iopamidol (ISOVUE 370-500 mL) injection 100 mL 02-19 16:35: 00 02-19 16:45 :00 No [id number] 100mL 100 mL, Intravenou s, ONCE, 1 dose, Thu02/19/21 at 1145, Routine [facility] levetiracet am (KEPPRA ORAL) 02-19 14:45: 33 Yes Take by mouth. [facility] proMETHazin e 25 mg tablet 02-19 00:00: 00 Yes [id number] 25mg Take 1 tablet by mouth every 6 (six) hours as needed for Nausea and Vomiting (N/V). [facility] dicyclomine 20 mg tablet 02-19 00:00: 00 Yes [id number] 20mg Take 1 tablet by mouth 4 (four) times daily as needed for Abdominal pain. [facility] ZONISAMIDE 100 mg capsule 11-15 00:00: 00 02-19 00:00 :00 No TAKE 1 CAPSULE BY MOUTH TWICE A DAY [facility] ondansetron (ZOFRAN) 4 mg tablet 02-09 20:05: 01 Yes 4mg Take 4 mg by mouth every 8 (eight) hours as needed. [facility] pantoprazol e (PROTONIX) 40 mg EC tablet 02-09 20:05: 01 Yes 40mg Take 40 mg by mouth daily. [facility] LISINOPRIL- HYDROCHLORO THIAZIDE ORAL 02-09 20:05: 01 Yes Take by mouth. [facility] lisinopril- hydrochloro thiazide 20-12.5 mg per tablet 02-09 20:03: 30 Yes 1{tbl} Take 1 tablet by mouth daily. [facility] omega-3 fatty acids-vitam in E (FISH OIL) 1,000 mg capsule 02-09 19:59: 52 Yes 1g Take 1 g by mouth daily. [facility] MULTIVITAMI N ORAL 02-09 19:58: 14 Yes 1{tbl} Take 1 Tab by mouth daily. [facility] loratadine (CLARITIN LIQUI-GEL) 10 mg capsule 02-09 19:58: 14 Yes Take by mouth daily. [facility] ondansetron (ZOFRAN) 4 mg tablet 02-09 15:05: 01 Yes 4mg Take 4 mg by mouth every 8 (eight) hours as needed. [facility] pantoprazol e (PROTONIX) 40 mg EC tablet 02-09 15:05: 01 Yes 40mg Take 40 mg by mouth daily. [facility] lisinopril- hydrochloro thiazide 20-12.5 mg per tablet 02-09 15:03: 30 Yes 1{tbl} Take 1 tablet by mouth daily. [facility] omega-3 fatty acids-vitam in E (FISH OIL) 1,000 mg capsule 02-09 14:59: 52 Yes 1g Take 1 g by mouth daily. [facility] MULTIVITAMI N ORAL 02-09 14:58: 14 Yes 1{tbl} Take 1 Tab by mouth daily. [facility] loratadine (CLARITIN LIQUI-GEL) 10 mg capsule 02-09 14:58: 14 Yes Take by mouth daily. [facility] proMETHazin e (PHENERGAN) 25 mg tablet 11-20 00:00: 00 02-19 00:00 :00 No 25mg Take 1 tablet by mouth every 6 (six) hours as needed for Nausea and Vomiting (N/V). [facility] carvedilol (COREG) 6.25 mg tablet 09-19 00:00: 00 Yes 6.25mg Take 1 Tab by mouth 2 (two) times daily with meals. [facility] amLODIPine (NORVASC) 10 mg tablet 09-19 00:00: 00 Yes 10mg Take 1 Tab by mouth daily. [facility] lisinopril (PRINIVIL,Z ESTRIL) 40 mg tablet 09-19 00:00: 00 Yes 40mg Take 1 Tab by mouth daily. [facility] Immunizations Ordered Immunization Name Filled Immunization Name Date Status Comments Source SARS-COV-2 COVID-19 PFIZER BA-SUCROSE VACCINE (ROSE TOP) 2022-02-19 00:00:00 Completed [facility] SARS-COV-2 COVID-19 PFIZER BA-SUCROSE VACCINE (ROSE TOP) 2022-02-19 00:00:00 Completed [facility] SARS-COV-2 COVID-19 PFIZER BA-SUCROSE VACCINE (ROSE TOP) 2022-02-19 00:00:00 Completed [facility] SARS-COV-2 COVID-19 PFIZER BA-SUCROSE VACCINE (ROSE TOP) 2022-02-19 00:00:00 Completed [facility] SARS-COV-2 COVID-19 PFIZER BA-SUCROSE VACCINE (ROSE TOP) 2022-02-19 00:00:00 Completed [facility] SARS-COV-2 COVID-19 PFIZER BA-SUCROSE VACCINE (ROSE TOP) 2022-02-19 00:00:00 Completed [facility] SARS-COV-2 COVID-19 PFIZER BA-SUCROSE VACCINE (ROSE TOP) 2022-02-19 00:00:00 Completed [facility] SARS-COV-2 COVID-19 PFIZER BA-SUCROSE VACCINE (ROSE TOP) 2022-02-19 00:00:00 Completed [facility] SARS-COV-2 COVID-19 PFIZER BA-SUCROSE VACCINE (ROSE TOP) 2022-02-19 00:00:00 Completed [facility] SARS-COV-2 COVID-19 PFIZER VACCINE 2021-05-24 00:00:00 Completed [facility] SARS-COV-2 COVID-19 PFIZER VACCINE 2021-05-24 00:00:00 Completed [facility] SARS-COV-2 COVID-19 PFIZER VACCINE 2021-05-24 00:00:00 Completed [facility] SARS-COV-2 COVID-19 PFIZER VACCINE 2021-05-24 00:00:00 Completed [facility] SARS-COV-2 COVID-19 PFIZER VACCINE 2021-05-24 00:00:00 Completed [facility] SARS-COV-2 COVID-19 PFIZER VACCINE 2021-05-24 00:00:00 Completed [facility] SARS-COV-2 COVID-19 PFIZER VACCINE 2021-05-24 00:00:00 Completed [facility] SARS-COV-2 COVID-19 PFIZER VACCINE 2021-05-24 00:00:00 Completed [facility] SARS-COV-2 COVID-19 PFIZER VACCINE 2021-05-24 00:00:00 Completed [facility] SARS-COV-2 COVID-19 PFIZER VACCINE 2021-05-24 00:00:00 Completed [facility] SARS-COV-2 COVID-19 PFIZER VACCINE 2021-05-24 00:00:00 Completed [facility] SARS-COV-2 COVID-19 PFIZER VACCINE 2021-05-03 00:00:00 Completed [facility] SARS-COV-2 COVID-19 PFIZER VACCINE 2021-05-03 00:00:00 Completed [facility] SARS-COV-2 COVID-19 PFIZER VACCINE 2021-05-03 00:00:00 Completed [facility] SARS-COV-2 COVID-19 PFIZER VACCINE 2021-05-03 00:00:00 Completed [facility] SARS-COV-2 COVID-19 PFIZER VACCINE 2021-05-03 00:00:00 Completed [facility] SARS-COV-2 COVID-19 PFIZER VACCINE 2021-05-03 00:00:00 Completed [facility] SARS-COV-2 COVID-19 PFIZER VACCINE 2021-05-03 00:00:00 Completed [facility] SARS-COV-2 COVID-19 PFIZER VACCINE 2021-05-03 00:00:00 Completed [facility] SARS-COV-2 COVID-19 PFIZER VACCINE 2021-05-03 00:00:00 Completed [facility] SARS-COV-2 COVID-19 PFIZER VACCINE 2021-05-03 00:00:00 Completed [facility] SARS-COV-2 COVID-19 PFIZER VACCINE 2021-05-03 00:00:00 Completed [facility] SARS-COV-2 COVID-19 PFIZER VACCINE 2021-05-03 00:00:00 Completed [facility] SARS-COV-2 COVID-19 PFIZER VACCINE Unknown Completed [facility] SARS-COV-2 COVID-19 PFIZER VACCINE Unknown Completed [facility] SARS-COV-2 COVID-19 PFIZER BA-SUCROSE VACCINE (ROSE TOP) Unknown Completed [facility] Vital Signs Vital Name Observation [...] Systolic blood pressure 2023-08-12 21:00:00 130 mm[Hg] [facility] Diastolic blood pressure 2023-08-12 21:00:00 85 mm[Hg] [place] [facility] Heart rate 2023-08-12 21:00:00 106 /min [facility] acute hospital Respiratory rate 2023-08-12 21:00:00 14 /min [facility] Oxygen saturation in Arterial blood by Pulse oximetry 2023-08-12 21:00:00 95 /min [facility] Body temperature 2023-08-12 20:34:54 37.22 Radha [facility] Body height 2023-08-12 19:47:[address] [facility] Body weight 2023-08-12 19:47:[address] [facility] BMI 2023-08-12 19:47:00 32.92 kg/m2 [facility] WEIGHT 2023-06-16 05:26:00 86.047 kg HEIGHT [...] Systolic blood pressure 2022-12-11 20:00:00 142 mm[Hg] [facility] Diastolic blood pressure 2022-12-11 20:00:00 90 mm[Hg] [facility] Respiratory rate 2022-12-11 20:00:00 24 /min [facility] Heart rate 2022-12-11 18:00:00 101 /min [facility] Oxygen saturation in Arterial blood by Pulse oximetry 2022-12-11 18:00:00 93 /min [facility] BMI 2022-12-11 13:55:00 35.43 kg/m2 [facility] Body temperature 2022-12-11 13:55:00 37.22 Radha [facility] Body weight 2022-12-11 13:55:[address] [facility] Systolic blood pressure 2022-11-18 05:34:00 152 mm[Hg] [facility] Diastolic blood pressure 2022-11-18 05:34:00 98 mm[Hg] [facility] Heart rate 2022-11-18 05:34:00 88 /min [facility] Respiratory rate 2022-11-18 05:34:00 18 /min [facility] Oxygen saturation in Arterial blood by Pulse oximetry 2022-11-18 05:34:00 97 /min [facility] Body temperature 2022-11-17 22:28:00 37.06 Radha [facility] Body height 2022-11-17 22:28:[address] [facility] Body weight 2022-11-17 22:28:00 99.791 kg [facility] BMI 2022-11-17 22:28:00 38.97 kg/m2 [facility] Heart rate 2022-08-02 02:02:00 108 /min [facility] Respiratory rate 2022-08-02 02:02:00 28 /min [facility] Oxygen saturation in Arterial blood by Pulse oximetry 2022-08-02 02:02:00 97 /min [facility] Body temperature 2022-08-02 01:00:00 36.44 Radha [facility] Systolic blood pressure 2022-08-01 23:29:00 145 mm[Hg] [facility] Diastolic blood pressure 2022-08-01 23:29:00 103 mm[Hg] [facility] Body weight 2022-08-01 09:16:[address] [facility] BMI 2022-08-01 09:16:00 38.26 kg/m2 [facility] Body height 2022-07-31 21:54:[address] [facility] Systolic blood pressure 2022-05-08 16:40:00 146 mm[Hg] [facility] Diastolic blood pressure 2022-05-08 16:40:00 96 mm[Hg] [facility] Heart rate 2022-05-08 16:40:00 112 /min [facility] Body temperature 2022-05-08 16:40:00 36.78 Radha [facility] Respiratory rate 2022-05-08 16:40:00 18 /min [facility] Oxygen saturation in Arterial blood by Pulse oximetry 2022-05-08 16:40:00 94 /min [facility] Body height 2022-05-05 23:44:[address] [facility] Body weight 2022-05-05 23:37:[address] [facility] BMI 2022-05-05 23:37:00 31.89 kg/m2 [facility] Systolic blood pressure 2022-04-15 18:52:00 104 mm[Hg] [facility] Diastolic blood pressure 2022-04-15 18:52:00 82 mm[Hg] [facility] Heart rate 2022-04-15 18:52:00 114 /min [facility] Oxygen saturation in Arterial blood by Pulse oximetry 2022-04-15 18:52:00 98 /min [facility] Body temperature 2022-04-15 16:14:00 36.28 Radha [facility] Respiratory rate 2022-04-15 16:14:00 17 /min [facility] Body height 2022-04-13 21:08:[address] [facility] Body weight 2022-04-13 21:08:[address] [facility] BMI 2022-04-13 21:08:00 35.61 kg/m2 [facility] Systolic blood pressure 2021-11-23 21:30:00 132 mm[Hg] [facility] Diastolic blood pressure 2021-11-23 21:30:00 76 mm[Hg] [facility] Heart rate 2021-11-23 21:30:00 95 /min [facility] acute hospital Respiratory rate 2021-11-23 21:30:00 13 /min [facility] Oxygen saturation in Arterial blood by Pulse oximetry 2021-11-23 21:30:00 97 /min [facility] Body temperature 2021-11-23 20:15:00 37.56 Radha [facility] Systolic blood pressure 2021-03-17 03:00:00 117 mm[Hg] [facility] Diastolic blood pressure 2021-03-17 03:00:00 76 mm[Hg] [facility] Heart rate 2021-03-17 03:00:00 104 /min General acute hospital Respiratory rate 2021-03-17 03:00:00 28 /min [facility] Oxygen saturation in Arterial blood by Pulse oximetry 2021-03-17 03:00:00 96 /min [facility] Body temperature 2021-03-17 00:39:00 37.11 Radha [facility] Body height 2021-03-17 00:39:[address] [facility] Body weight 2021-03-17 00:39:[address] [facility] BMI 2021-03-17 00:39:00 23.03 kg/m2 [facility] Systolic blood pressure 2021-03-15 00:14:00 149 mm[Hg] [facility] Diastolic blood pressure 2021-03-15 00:14:00 78 mm[Hg] [facility] Heart rate 2021-03-15 00:14:00 100 /min [facility] acute hospital Body temperature 2021-03-15 00:14:00 37.33 Radha [facility] Respiratory rate 2021-03-15 00:14:00 24 /min [facility] Body height 2021-03-15 00:14:[address] [facility] Body weight 2021-03-15 00:14:[address] [facility] BMI 2021-03-15 00:14:00 23.03 kg/m2 [facility] Oxygen saturation in Arterial blood by Pulse oximetry 2021-03-15 00:14:00 98 /min [facility] Systolic blood pressure 2021-02-19 18:00:00 131 mm[Hg] [facility] Diastolic blood pressure 2021-02-19 18:00:00 80 mm[Hg] [facility] Heart rate 2021-02-19 18:00:00 83 /min General acute hospital Respiratory rate 2021-02-19 18:00:00 18 /min [facility] Oxygen saturation in Arterial blood by Pulse oximetry 2021-02-19 18:00:00 100 /min [facility] Body temperature 2021-02-19 15:47:00 37 Radha [facility] Body height 2021-02-19 15:47:[address] [facility] Body weight 2021-02-19 15:47:[address] [facility] BMI 2021-02-19 15:47:00 23.03 kg/m2 [facility] Heart rate 2023-09-08 08:54:00 118 /min [facility] Respiratory rate 2023-09-08 08:54:00 21 /min [facility] Oxygen saturation in Arterial blood by Pulse oximetry 2023-09-08 08:54:00 100 /min [facility] Systolic blood pressure 2023-09-08 08:32:00 110 mm[Hg] [facility] Diastolic blood pressure 2023-09-08 08:32:00 77 mm[Hg] [facility] Body temperature 2023-09-08 08:32:00 36.06 Radha [facility] Body height 2023-09-04 00:58:00 157.5 cm [facility] Body weight 2023-09-04 00:58:00 80 kg [facility] BMI 2023-09-04 00:58:00 32.26 kg/m2 [facility] Heart rate 2023-06-16 17:00:00 108 /min [facility] Systolic blood pressure 2023-06-16 15:31:00 101 mm[Hg] [facility] Diastolic blood pressure 2023-06-16 15:31:00 81 mm[Hg] [facility] Body temperature 2023-06-16 15:31:00 36.61 Radha [facility] Respiratory rate 2023-06-16 15:31:00 18 /min [facility] Oxygen saturation in Arterial blood by Pulse oximetry 2023-06-16 15:31:00 94 /min [facility] Body weight 2023-06-16 05:26:00 86.047 kg [facility] BMI 2023-06-16 05:26:00 33.60 kg/m2 [facility] Body height 2023-06-13 04:00:00 160 cm [facility] Systolic blood pressure 2023-06-04 13:02:00 93 mm[Hg] [facility] Diastolic blood pressure 2023-06-04 13:02:00 57 mm[Hg] [facility] Heart rate 2023-06-04 13:02:00 101 /min [facility] Respiratory rate 2023-06-04 13:02:00 22 /min [facility] Oxygen saturation in Arterial blood by Pulse oximetry 2023-06-04 13:02:00 95 /min room air [facility] Body temperature 2023-06-04 11:46:00 35.28 Radha [facility] Systolic blood pressure 2023-05-28 16:00:00 154 mm[Hg] [facility] Diastolic blood pressure 2023-05-28 16:00:00 82 mm[Hg] [facility] Heart rate 2023-05-28 16:00:00 89 /min [facility] Body temperature 2023-05-28 16:00:00 36.67 Radha [facility] Respiratory rate 2023-05-28 16:00:00 16 /min [facility] Oxygen saturation in Arterial blood by Pulse oximetry 2023-05-28 16:00:00 97 /min [facility] Body height 2023-05-28 07:00:00 157.5 cm [facility] Body weight 2023-05-28 07:00:00 87.544 kg [facility] BMI 2023-05-28 07:00:00 35.30 kg/m2 [facility] Body height 2023-05-26 09:12:00 157.5 cm [facility] Body weight 2023-05-26 09:12:00 87.091 kg [facility] BMI 2023-05-26 09:12:00 35.12 kg/m2 [facility] Respiratory rate 2023-04-02 16:35:00 18 /min [facility] Oxygen saturation in Arterial blood by Pulse oximetry 2023-04-02 16:35:00 98 /min [facility] Systolic blood pressure 2023-04-02 12:00:00 147 mm[Hg] [facility] Diastolic blood pressure 2023-04-02 12:00:00 97 mm[Hg] [facility] Heart rate 2023-04-02 12:00:00 106 /min [facility] Body temperature 2023-04-02 12:00:00 36.28 Radha [facility] Body height 2023-03-30 02:14:00 157.5 cm [facility] Body weight 2023-03-30 02:14:00 92.08 kg [facility] BMI 2023-03-30 02:14:00 37.13 kg/m2 [facility] Respiratory rate 2022-08-03 14:40:00 18 /min [facility] Systolic blood pressure 2022-08-03 12:13:00 112 mm[Hg] [facility] Diastolic blood pressure 2022-08-03 12:13:00 77 mm[Hg] [facility] Heart rate 2022-08-03 12:13:00 115 /min [facility] Oxygen saturation in Arterial blood by Pulse oximetry 2022-08-03 12:13:00 93 /min [facility] Body temperature 2022-08-03 12:00:00 36.83 Radha [facility] Body height 2022-08-02 21:52:00 160.2 cm [facility] Body weight 2022-08-02 21:52:00 95 kg [facility] BMI 2022-08-02 21:52:00 37.02 kg/m2 [facility] BP Systolic 2022-07-24 13:31:00 136 mm[Hg] BP [...] Clinician Source POCT-GLUCOSE METER 2023-09-08 08:40:00 Bud [facility] CBC W/PLT COUNT & AUTO DIFFERENTIAL 2023-09-08 04:16:00 [facility] BASIC METABOLIC PANEL 2023-09-08 04:16:00 [facility] MAGNESIUM 2023-09-08 04:16:00 [facility] PHOSPHORUS 2023-09-08 04:16:00 [facility] CBC W/PLT COUNT & AUTO DIFFERENTIAL 2023-09-08 04:16:00 [facility] POCT-GLUCOSE METER 2023-09-07 21:29:00 Bud [facility] XR KNEE 3 VIEWS LEFT 2023-09-07 19:21:02 Bud [facility] VENOUS DOPPLER LEGS BILATERAL 2023-09-07 12:45:00 [facility] CBC W/PLT COUNT & AUTO DIFFERENTIAL 2023-09-07 03:17:00 [facility] BASIC METABOLIC PANEL 2023-09-07 03:17:00 [facility] MAGNESIUM 2023-09-07 03:17:00 [facility] PHOSPHORUS 2023-09-07 03:17:00 [facility] CBC W/PLT COUNT & AUTO DIFFERENTIAL 2023-09-07 03:17:00 [facility] POCT-GLUCOSE METER 2023-09-06 21:17:00 Bud [facility] POCT-GLUCOSE METER 2023-09-06 18:37:00 Bud [facility] POCT-GLUCOSE METER 2023-09-06 13:16:00 Bud [facility] POCT-GLUCOSE METER 2023-09-06 08:21:00 Bud [facility] CBC W/PLT COUNT & AUTO DIFFERENTIAL 2023-09-06 04:49:00 [facility] BASIC METABOLIC PANEL 2023-09-06 04:49:00 [facility] MAGNESIUM 2023-09-06 04:49:00 [facility] PHOSPHORUS 2023-09-06 04:49:00 [facility] CBC W/PLT COUNT & AUTO DIFFERENTIAL 2023-09-06 04:49:00 [facility] POCT-GLUCOSE METER 2023-09-05 21:24:00 Bud [facility] MR BRAIN WITH & WITHOUT IV CONTRAST 2023-09-05 11:25:07 Sandi Aleman [facility] POCT-GLUCOSE METER 2023-09-05 08:10:00 uBd [facility] CBC W/PLT COUNT & AUTO DIFFERENTIAL 2023-09-05 04:44:00 [facility] BASIC METABOLIC PANEL 2023-09-05 04:44:00 [facility] MAGNESIUM 2023-09-05 04:44:00 [facility] PHOSPHORUS 2023-09-05 04:44:00 [facility] POCT-GLUCOSE METER 2023-09-05 04:44[facility] W/[facility] & AUTO DIFFERENTIAL 2023-09-05 04:44:00 [facility] POCT-GLUCOSE METER 2023-09-04 21:38:00 [facility] POCT-[facility]UCOSE METER 2023-09-04 15:42:00 [facility] SARS-COV2/INFLUENZA/RSV RT-PCR 2023-09-04 11:25:00 Uli [facility] POCT-GLUCOSE METER 2023-09-04 10:53:00 Sabas [facility] POCT-GLUCOSE METER 2023-09-04 08:04:00 Sabas [facility] PROCALCITONIN 2023-09-04 06:56:00 Uli [facility] IRON, TIBC, % SAT. (WITHOUT FERRITIN) 2023-09-04 06:56:00 Uli [facility] FERRITIN 2023-09-04 06:56:00 Uli [facility] BLOOD CULTURE 2023-09-04 06:37:00 Jorge Pereira [facility] MR LUMBAR SPINE WITHOUT IV CONTRAST 2023-09-04 05:47:25 [place] Ogden [facility] MR THORACIC SPINE WITHOUT IV CONTRAST 2023-09-04 04:53:00 [place] Ogden [facility] MR CERVICAL SPINE WITHOUT IV CONTRAST 2023-09-04 04:18:00 [place] Ogden [facility] CT THORACIC SPINE WITHOUT IV CONTRAST 2023-09-04 03:08:00 Randall [facility] CT LUMBAR SPINE WITHOUT IV CONTRAST 2023-09-04 03:08:00 Randall [facility] LACTIC ACID, VENOUS 2023-09-04 01:42:[address] [facility] TYPE AND SCREEN, AUTOMATED 2023-09-04 01:42:[address] [facility] CBC W/PLT COUNT & AUTO DIFFERENTIAL 2023-09-04 00:51:00 [facility] COMPREHENSIVE METABOLIC PANEL 2023-09-04 00:51:00 [facility] MAGNESIUM 2023-09-04 00:51:00 [facility] PHOSPHORUS 2023-09-04 00:51:00 [facility] PROTHROMBIN TIME/INR 2023-09-04 00:51:00 [facility] APTT 2023-09-04 00:51:00 [facility] B-TYPE NATRIURETIC FACTOR (BNP) 2023-09-04 00:51:00 [place] Ogden [facility] URINALYSIS WITHOUT MICROSCOPIC 2023-09-04 00:51:00 Melvi [place] RAPID DRUG SCREEN, URINE 2023-09-04 00:51:00 Mel[facility] D-DIMER 2023-09-04 00:51:00 [place] [facility]ola [facility] FIBRINOGEN 2023-09-04 00:51:00 Randall, [facility] CBC W/PLT COUNT & AUTO DIFFERENTIAL 2023-09-04 00:51:00 [facility] EKG-SCANNED 2023-09-04 00:00:00 Provider, Eliceo Schaffer [facility] LACTIC ACID WHOLE BLOOD 2023-08-12 20:31:00 Brian Bryan [facility] COMP. METABOLIC PANEL (11613) 2023-08-12 20:29:00 Brian Bryan [facility] CBC WITH DIFF 2023-08-12 20:29:00 Brian Bryan [facility] CONSENT/REFUSAL FOR DIAGNOSI S AND TREATMENT 2023-08-12 19:43:16 Doctor Unassigned, [place] [facility] TRANSESOPHAGEAL ECHO 2023-06-16 11:05:00 Torrey [facility] T SPOT TB 2023-06-15 04:51:[address] [facility] FUNGITELL R B-D-GLUCAN WITH REFLEX TO TITER 2023-06-15 04:51:[address] [facility] ASPERGILLUS GALACTOMANNAN ANTIGEN 2023-06-15 04:51:[address] [facility] VANCOMYCIN LEVEL, TROUGH 2023-06-15 04:51:00 Kaylene Mendosa [facility] T-SPOT(R).TB (QUEST) 2023-06-15 04:27:00 System, Provider Not In [facility] T-SPOT(R).TB (QUEST) 2023-06-15 04:27:00 System, Provider Not In [facility] ECHO W CONTRAST & DOPPLER 2023-06-14 09:22:00 [facility] HEMOGLOBIN A1C 2023-06-14 04:08:00 Cara Burgess [facility] CBC (HEMOGRAM ONLY) 2023-06-14 04:08:00 [facility] BASIC METABOLIC PANEL 2023-06-14 04:08:00 [facility] CRYPTOCOCCAL ANTIGEN 2023-06-13 17:21:[address] [facility] HC LAB HIV-1 AG W/HIV-1&2 AB 2023-06-13 17:21:00 [facility] VENOUS DOPPLER ARM, LEFT 2023-06-13 17:20:00 Cara Burgess [facility] LEGIONELLA ANTIGEN, URINE 2023-06-13 17:00:00 [facility] SPUTUM CULTURE + GRAM STAIN 2023-06-13 14:33:00 [facility] MR LUMBAR SPINE WITH & WITHOUT IV CONTRAST 2023-06-13 13:03:47 MichaelmacoshiSai Yamilethprasanna [facility] ECG 12-LEAD 2023-06-13 11:47:02 [facility] ECG 12-LEAD 2023-06-13 11:47:02 Unknown, Hl7 [facility] ECG 12-LEAD 2023-06-13 11:47:02 Unknown, Hl7 [facility] MRSA SCREEN 2023-06-13 09:19:00 [facility] CBC W/PLT COUNT & AUTO DIFFERENTIAL 2023-06-13 06:03:00 [place] [facility] COMPREHENSIVE METABOLIC PANEL 2023-06-13 06:03:00 [facility] PROTHROMBIN TIME/INR 2023-06-13 06:03:00 [facility] CREATINE KINASE (CK) 2023-06-13 06:03:00 [facility] CBC W/PLT COUNT & AUTO DIFFERENTIAL 2023-06-13 06:03:00 [place] [facility] [facility] [facility] BLOOD CULTURE 2023-06-13 06:02:00 [facility] CBC W/PLT COUNT & AUTO DIFFERENTIAL 2023-06-02 04:41:00 Sunil Chu [facility] BASIC METABOLIC PANEL 2023-06-02 04:41:00 Sunil Chu [facility] MAGNESIUM 2023-06-02 04:41:00 Sunil Chu [facility] PHOSPHORUS 2023-06-02 04:41[facility]00 [facility] & AUTO DIFFERENTIAL 2023-06-02 04:41:00 KimberleySunil [facility] XR SPINE LUMBAR 1 VIEW 2023-06-01 10:31:00 Adam Garcia [facility] XR SPINE LUMBAR 1 VIEW 2023-06-01 09:46:00 Adam Garcia [facility] LAMINECTOMY, SPINE, LUMBAR 2023-06-01 09:10:00 Adam Garcia [facility] PROCEDURE W/ C-ARM 2023-06-01 09:10:00 Adam Garcia [facility] LAMINECTOMY, SPINE, LUMBAR 2023-06-01 07:30:00 JoseAdam [facility] PROCEDURE W/ C-ARM 2023-06-01 07:30:00 [facility] SCREEN, URINE 2023-06-01 04:33:00 Adam Garcia [facility] BASIC METABOLIC PANEL 2023-05-31 22:55:[address] [facility] CBC W/PLT COUNT & AUTO DIFFERENTIAL 2023-05-31 22:55:00 Gomez [facility] PT/APTT 2023-05-31 22:55:00 Patricia [facility] CBC W/PLT COUNT & AUTO DIFFERENTIAL 2023-05-31 22:55:[address] [facility] CT NECK SOFT TISSUE WITHOUT IV CONTRAST 2023-05-31 09:39:30 [facility] TYPE AND SCREEN, AUTOMATED 2023-05-31 09:13:00 [facility] BASIC METABOLIC PANEL 2023-05-29 06:43:00 [facility] CBC W/PLT COUNT & AUTO DIFFERENTIAL 2023-05-29 06:43:00 [facility] CBC W/PLT COUNT & AUTO DIFFERENTIAL 2023-05-29 06:43:00 [facility] XR SPINE CERVICAL 2 OR 3 VIEWS 2023-05-28 18:57:00 Burt Nelson Yamilethprasanna [facility] FL FLUORO NON-SPECIFIC UP TO 1 HOUR 2023-05-28 10:48:00 Adam Garcia [facility] [place] FLUORO NON-SPECIFIC UP TO 1 HOUR 2023-05-28 10:07:00 Jose Adam [facility] DISCECTOMY, SPINE, CERVICAL, ANTERIOR APPROACH, WITH FUSION 2023-05-28 08:15:00 [facility] INSERTION, HARDWARE, SPINAL 2023-05-28 08:15:00 [facility] PROCEDURE, ALLOGRAFT, FOR SPINE SURGERY 2023-05-28 08:15:00 [facility] AUTOGRAFT FOR SPINE SURGERY 2023-05-28 08:15:00 [facility] PROCEDURE W/ C-ARM 2023-05-28 08:15:00 [facility] NEUROPHYSIOLOGIC MONITORING, INTRAOPERATIVE 2023-05-28 08:15:00 [place] [facility] PROCEDURE, USING OPERATING MICROSCOPE 2023-05-28 08:15:00 [facility] HCG, QUANTITATIVE, 2023-05-28 07:42:00 Yue Bui [facility] TYPE AND SCREEN, AUTOMATED 2023-05-28 07:42:00 Ketan Scruggs [facility] XR CHEST 1 VIEW PORTABLE / BEDSIDE 2023-04-01 15:32:16 Thomas Lozoya [facility] B-TYPE NATRIURETIC FACTOR (BNP) 2023-04-01 13:32:00 Thomas Lozoya [facility] ECHO W CONTRAST & DOPPLER 2023-03-31 20:18:37 Jasen [facility] MR CERVICAL SPINE WITHOUT IV CONTRAST 2023-03-31 09:25:00 Selin Lewis [facility] CBC (HEMOGRAM ONLY) 2023-03-31 03:45:00 Jasen [facility] COMPREHENSIVE METABOLIC PANEL 2023-03-31 03:45:00 [facility] ARTERIAL DOPPLER LEGS BILATERAL 2023-03-30 15:45:00 [facility] ARTERIAL (ALEISHA'S W/ DOPPLER) ONLY 2023-03-30 15:44:00 [facility] ECG 12-LEAD 2023-03-30 13:06:22 Peteneena [facility] ECG 12-LEAD 2023-03-30 13:06:22 Unknown, Hl7 [facility] ECG 12-LEAD 2023-03-30 13:06:22 Unknown, Hl7 [facility] MR THORACIC SPINE WITHOUT IV CONTRAST 2023-03-30 12:29:58 Eric [facility] MR LUMBAR SPINE WITHOUT IV CONTRAST 2023-03-30 11:58:00 Eric [facility] EEG AWAKE AND DROWSY 2023-03-30 09:57:53 [place] [facility] VALPROIC ACID LEVEL, TOTAL 2023-03-30 09:06:00 [place] [facility] URINALYSIS W/ REFLEX URINE CULTURE 2023-03-30 03:54:00 Eric [facility] CBC (HEMOGRAM ONLY) 2023-03-30 03:52:00 Jasen [facility] COMPREHENSIVE METABOLIC PANEL 2023-03-30 [facility] 2023-03-30 03:52:00 [facility] PT/APTT 2023-03-30 03:52:00 Thomas Lozoya [facility] EKG-SCANNED 2023-03-29 00:00:00 Provider, Default Sarbjit [facility] CT HEAD WO CONTRAST 2022-12-11 18:36:49 Alfonso Alvarado [facility] URINE DRUG (IMMUNOASSAY) - COMPREHENSIVE DRUG SCREEN 2022-12-11 17:13:00 Alfonso Alvarado [facility] URINALYSIS 2022-12-11 17:13:00 Alfonso Alvarado [facility] CT CHEST PULMONARY ANGIOGRAM 2022-12-11 16:26:39 Alfonso Alvarado [facility] MAGNESIUM 2022-12-11 14:57:00 Alfonso Alvarado [facility] COMP. METABOLIC PANEL (40021) 2022-12-11 14:57:00 Alfonso Alvarado [facility] D-DIMER 2022-12-11 14:15:00 Alfonso Alvarado [facility] XR CHEST 1 VW 2022-12-11 14:10:26 Alfonso Alvarado [facility] TROPONIN I 2022-12-11 14:02:00 Alfonso Alvarado [facility] CBC WITH DIFF 2022-12-11 14:02:00 Alfonso Alvarado Lorelei [facility] N-TERMINAL PRO-BNP 2022-12-11 14:02:00 Alfonso Alvarado [facility] HB ECG ROUTINE & RHYTHM STRIP 2022-12-11 14:01:08 Alfonso Alvarado Lorelei [facility] CONSENT/REFUSAL FOR DIAGNOSI S AND TREATMENT 2022-12-11 13:52:01 Doctor Unassigned, [place] [facility] ECG 12-LEAD 2022-08-03 05:03:32 Unknown, Hl7 Doctor [facility] ECG 12-LEAD 2022-08-03 05:03:32 Unknown, Hl7 Doctor [facility] LIPID PANEL 2022-08-02 21:14:00 [facility] TSH/FREE T4 IF INDICATED 2022-08-02 21:14:00 [facility] VITAMIN B12 2022-08-02 21:14:00 [facility] HEMOGLOBIN A1C 2022-08-02 21:14:00 [facility] COMPREHENSIVE METABOLIC PANEL 2022-08-02 21:14:00 [facility] CBC W/PLT COUNT & AUTO DIFFERENTIAL 2022-08-02 21:14:00 [facility] RPR 2022-08-02 21:14:00 [facility] HC LAB HIV-1 AG W/HIV-1&2 AB 2022-08-02 21:14:00 [facility] C-REACTIVE PROTEIN 2022-08-02 21:14:00 [facility] CBC W/PLT COUNT & AUTO DIFFERENTIAL 2022-08-02 21:14:00 [facility] EKG-SCANNED 2022-08-02 00:00:00 Provider, Default Scanning [facility] CT HEAD WO CONTRAST 2022-08-01 23:52:15 Essence Lorenza [facility] GALV ONLY - INFLUENZA A B RS V PCR 2022-08-01 18:28:00 Letitia Chambers [facility] TRANSTHORACIC ECHO (TTE) COMPLETE W/ CONTRAST 2022-08-01 14:42:00 Kylee Montez [facility] MAGNESIUM 2022-08-01 10:42:00 Lorenza Lowry [facility] BASIC METABOLIC PANEL (NA, K , CL, CO2, GLUCOSE, BUN, CREATININE, CA) 2022-08-01 10:42:00 Lorenza Lowry [facility] CBC WITH DIFF 2022-08-01 10:42:00 Essence Jennie [facility] N-TERMINAL PRO-BNP 2022-08-01 10:42:00 Kylee Montez [facility] POCT GLUCOSE (AUTOMATED) 2022-08-01 06:56:00 Lorenza Lowry [facility] CRITICAL CARE 2022-07-31 22:31:36 Sav Rondon [facility] URINALYSIS 2022-07-31 20:52:00 Sav Rondon [facility] URINE DRUG (IMMUNOASSAY) - COMPREHENSIVE DRUG SCREEN W/O REFLEX 2022-07-31 20:52:00 Sav Rondon [facility] XR CHEST 1 VW 2022-07-31 18:45:17 Sav Rondon [facility] LIPASE 2022-07-31 17:58:00 Sav Rondon [facility] TROPONIN I 2022-07-31 17:58:00 Sav Rondon [facility] COMP. METABOLIC PANEL ([id number]) 2022-07-31 17:58:00 Sav Rondon [facility] CBC WITH DIFF 2022-07-31 17:58:00 Sav Rondon [facility] PROTHROMBIN TIME / INR 2022-07-31 17:58:00 Sav Rondon [facility] ACTIVATED PARTIAL THRMPLAS DAVID 2022-07-31 17:58:00 [facility] 2022-07-31 17:58:00 Sav Rondon [facility] HB ECG ROUTINE & RHYTHM STRIP 2022-07-31 17:46:28 [facility] NOTICE OF PRIVACY PRACTICES 2022-07-31 17:35:38 Doctor Unassigned, [place] [facility] CONSENT/REFUSAL FOR DIAGNOSI S AND TREATMENT 2022-07-31 17:35:13 Doctor Unassigned, [place] [facility] PHOSPHORUS 2022-05-08 05:51:00 Shefali Azeem [facility] MAGNESIUM 2022-05-08 05:51:00 Shefali [facility] BASIC METABOLIC PANEL (NA, K , CL, CO2, GLUCOSE, BUN, CREATININE, CA) 2022-05-08 05:51:00 Shefali [facility] CBC WITH DIFF 2022-05-08 05:51:00 Shefali Azeem [facility] BASIC METABOLIC PANEL (NA, K , CL, CO2, GLUCOSE, BUN, CREATININE, CA) 2022-05-07 07:09:00 John Cintron [facility] CBC WITH DIFF 2022-05-07 07:09:00 John Cintron [facility] POCT GLUCOSE (AUTOMATED) 2022-05-07 01:16:00 Brandyn Ibrahim [facility] HB ABO GROUPING 2022-05-06 05:07:00 Ismael Dunn [facility] BASIC METABOLIC PANEL (NA, K , CL, CO2, GLUCOSE, BUN, CREATININE, CA) 2022-05-06 05:04:00 Shefali [facility] CBC WITH DIFF 2022-05-06 05:04:00 Shefali [facility] KEPPRA (LEVETIRACETAM) 2022-05-06 05:04:00 Shefali [facility] MR LUMBAR SPINE WO CONTRAST 2022-05-06 02:54:37 Ender Monet [facility] ELECTROENCEPHALOGRAM 2022-05-06 00:00:00 John Cintron [facility] BASIC METABOLIC PANEL (NA, K , CL, CO2, GLUCOSE, BUN, CREATININE, CA) 2022-05-05 07:57:00 [facility] 2022-05-05 07:57:00 Ismael Dunn [facility] PROTHROMBIN TIME / INR 2022-05-05 07:57:00 Ismael Dunn [facility] ACTIVATED PARTIAL THRMPLAS DAVID 2022-05-05 07:57:00 Ismael Dunn [facility] FIBRINOGEN 2022-05-05 07:57:00 [facility]RE[facility] S AND AUTHORIZATIONS 2022-05-04 05:01:00 Doctor Unassigned, [place] [facility] VITAMIN D, 25-OH 2022-04-15 16:53:00 Sen Toledo [facility] MR THORACIC SPINE WO CONTRAST 2022-04-15 11:56:19 Harshil [facility] MR CERVICAL SPINE WO CONTRAST 2022-04-15 11:20:00 Harshil [facility] BASIC METABOLIC PANEL (NA, K , CL, CO2, GLUCOSE, BUN, CREATININE, CA) 2022-04-15 10:36:00 Charmaine Morataya [facility] TEST, URINE 2022-04-15 04:39:00 [facility] URINE DRUG (IMMUNOASSAY) - COMPREHENSIVE DRUG SCREEN 2022-04-15 04:39:00 [facility] URINALYSIS 2022-04-15 04:39:00 [facility] TRANSTHORACIC ECHO (TTE) COMPLETE W/ CONTRAST 2022-04-14 16:37:03 [facility] KEPPRA (LEVETIRACETAM) 2022-04-14 15:30:00 [facility] MAGNESIUM 2022-04-14 10:03:00 [facility] BASIC METABOLIC PANEL (NA, K , CL, CO2, GLUCOSE, BUN, CREATININE, CA) 2022-04-14 10:03:00 [facility] MR LUMBAR SPINE WO CONTRAST 2022-04-14 02:48:12 [facility] MR STROKE BRAIN WO CONTRAST 2022-04-14 02:29:00 [facility] CT STROKE ANGIOGRAM HEAD 2022-04-13 18:40:00 Sapna Vargas [facility] CT STROKE ANGIOGRAM NECK 2022-04-13 18:40:00 Sapna Vargas [facility] CT STROKE HEAD WO CONTRAST 2022-04-13 18:36:00 Sapna Vargas [facility] TROPONIN I 2022-04-13 18:17:00 Sapna Vargas [facility] THYROID STIMULATING HORMONE 2022-04-13 18:17:00 [facility] BASIC METABOLIC PANEL (NA, K , CL, CO2, GLUCOSE, BUN, CREATININE, CA) 2022-04-13 18:17:00 Sapna Vargas [facility] LIPID PANEL (90656)(TOTAL CHOLESTEROL, TRIGLYCERIDES, HDL) 2022-04-13 18:17:00 [facility] CBC WITHOUT DIFF 2022-04-13 18:17:00 Sapna Vargas [facility] GLYCOSYLATED HEMOGLOBIN (A1C) 2022-04-13 18:17:00 [facility] PROTHROMBIN TIME / INR 2022-04-13 18:17:00 Sapna Vargas [facility] ACTIVATED PARTIAL THRMPLAS DAVID 2022-04-13 18:17:00 Sapna Vargas [facility] COVID-19 (ID NOW RAPID TESTING) 2022-04-13 18:17:00 Sapna Vargas [facility] LAB ONLY COVID INTERPRETATION 2022-04-13 18:17:00 Sapna Vargas [facility] HB ECG ROUTINE & RHYTHM STRIP 2022-04-13 18:15:49 Sapna Vargas [facility] CONSENT/REFUSAL FOR DIAGNOSI S AND TREATMENT 2022-04-13 18:05:14 Doctor Unassigned, [place] [facility] HOSPITAL ADMISSION 2022-04-13 05:01:00 Doctor Unassigned, [place] [facility] SARS-COV-2 COVID-19 VACCINE 12 YRS+,0.3ML,IM (PFIZER - ROSE TOP) 2022-02-19 15:21:12 Doctor Unassigned, [place] [facility] URINE DRUG (IMMUNOASSAY) - COMPREHENSIVE DRUG SCREEN W/O REFLEX 2021-11-23 21:21:00 Nichelle Virk [facility] CT HEAD WO CONTRAST 2021-11-23 20:58:00 Nichelle Virk [facility] POCT TEST 2021-11-23 20:46:00 Nichelle Virk [facility] URINALYSIS 2021-11-23 20:43:00 Nichelle Virk [facility] LIPASE 2021-11-23 20:27:00 Nichelle Virk [facility] TROPONIN I 2021-11-23 20:27:00 Nichelle Virk [facility] COMP. METABOLIC PANEL ([id number]) 2021-11-23 20:27:00 Nichelle Virk [facility] CBC WITH DIFF 2021-11-23 20:27:00 Nichelle Virk [facility] POCT GLUCOSE (AUTOMATED) 2021-11-23 20:15:00 Doctor Unassigned, [place] [facility] SARS-COV-2 COVID-19 VACCINE,0.3ML,IM (PFIZER) 2021-05-24 14:23:12 Doctor Unassigned, [place] [facility] SARS-COV-2 COVID-19 VACCINE,0.3ML,IM (PFIZER) 2021-05-03 14:59:29 Doctor Unassigned, [place] [facility] EMERGENCY SERVICES AGREEMENT S AND AUTHORIZATIONS 2021-04-16 05:01:00 Doctor Unassigned, [place] [facility] URINALYSIS 2021-03-17 03:09:00 Fabrice Chakraborty [facility] XR CHEST 1 VW 2021-03-17 01:45:07 [facility] 2021-03-17 01:35[facility]00 [facility] COMP. METABOLIC PANEL (52717) 2021-03-17 01:35:00 [facility] CBC WITH DIFF 2021-03-17 01:35:00 Palmer [facility] N-TERMINAL PRO-BNP 2021-03-17 01:35:00 Fabrice Chakraborty [facility] COVID-19 (ID NOW RAPID TESTING) 2021-03-17 00:58:00 Brian Bryan [facility] CONSENT/REFUSAL FOR DIAGNOSI S AND TREATMENT 2021-03-17 00:32:59 Doctor Unassigned, [place] [facility] COVID-19 (ID NOW RAPID TESTING) 2021-02-19 17:04:00 Anali Monroy [facility] CT ABDOMEN PELVIS W CONTRAST 2021-02-19 16:41:18 Anali Monroy [facility] LIPASE 2021-02-19 15:58:00 Anali Monroy [facility] COMP. METABOLIC PANEL (12191) 2021-02-19 15:58:00 Anali Monroy [facility] CBC WITH DIFF 2021-02-19 15:58:00 Anali Monroy [facility] URINALYSIS 2021-02-19 15:58:00 Anali Monroy [facility] NOTICE OF PRIVACY PRACTICES 2021-02-19 15:30:46 Doctor Unassigned, [place] [facility] CONSENT/REFUSAL FOR DIAGNOSI S AND TREATMENT 2021-02-19 15:30:30 Doctor Unassigned, [place] [facility] Plan of Care Planned Activity Planned Date Details Comments Source Future Scheduled Test 2025-08-02 00:00:00 Lipid panel (procedure) [code = 63431547] [facility] Future Scheduled Test 2025-08-02 00:00:00 Lipid panel (procedure) [code = 80053587] [facility] Future Scheduled Test 2025-08-02 00:00:00 Lipid panel (procedure) [code = 66575829] [facility] Future Scheduled Test 2025-08-02 00:00:00 Lipid panel (procedure) [code = 19492593] [facility] Future Scheduled Test 2025-08-02 00:00:00 Lipid panel (procedure) [code = 19868974] [facility] Future Scheduled Test 2025-08-02 00:00:00 Lipid panel (procedure) [code = 34217725] [facility] Future Scheduled Test 2025-08-02 00:00:00 Lipid panel (procedure) [code = 52987448] [facility] Future Scheduled Test 2025-08-02 00:00:00 Lipid panel (procedure) [code = 04699542] [facility] Future Scheduled Test 2025-08-02 00:00:00 Lipid panel (procedure) [code = 86970237] [facility] Future Scheduled Test 2025-08-02 00:00:00 Lipid panel (procedure) [code = 09747427] [facility] Future Scheduled Test 2025-08-02 00:00:00 Lipid panel (procedure) [code = 34218869] [facility] Future Scheduled Test 2025-08-02 00:00:00 Lipid panel (procedure) [code = 71378951] [facility] Future Scheduled Test 2025-08-02 00:00:00 Lipid panel (procedure) [code = 00077546] [facility] Future Scheduled Test 2025-08-02 00:00:00 Lipid panel (procedure) [code = 23015891] [facility] Future Scheduled Test 2025-08-02 00:00:00 Lipid panel (procedure) [code = 33228492] [facility] Future Scheduled Test 2025-08-02 00:00:00 Lipid panel (procedure) [code = 17681965] [facility] Future Scheduled Test 2025-08-02 00:00:00 Lipid panel (procedure) [code = 78516563] [facility] Future Scheduled Test 2025-08-02 00:00:00 Lipid panel (procedure) [code = 22802481] [facility] Future Scheduled Test 2025-08-02 00:00:00 Lipid panel (procedure) [code = 49845845] [facility] Future Scheduled Test 2025-08-02 00:00:00 Lipid panel (procedure) [code = 61896749] [facility] Future Scheduled Test 2025-08-02 00:00:00 Lipid panel (procedure) [code = 75678911] [facility] Future Scheduled Test 2025-08-02 00:00:00 Lipid panel (procedure) [code = 05093217] [facility] Future Scheduled Test 2025-08-02 00:00:00 Lipid panel (procedure) [code = 80244908] [facility] Future Scheduled Test 2025-08-02 00:00:00 Lipid panel (procedure) [code = 81269145] [facility] Future Scheduled Test 2025-08-02 00:00:00 Lipid panel (procedure) [code = 92359711] [facility] Future Scheduled Test 2025-08-02 00:00:00 Lipid panel (procedure) [code = 21210862] [facility] Future Scheduled Test 2025-08-02 00:00:00 Lipid panel (procedure) [code = 93394830] [facility] Future Scheduled Test 2025-08-02 00:00:00 Lipid panel (procedure) [code = 88821046] [facility] Future Scheduled Test 2025-08-02 00:00:00 Lipid panel (procedure) [code = 99675166] [facility] Future Scheduled Test 2025-08-02 00:00:00 Lipid panel (procedure) [code = 66527582] [facility] Future Scheduled Test 2025-08-02 00:00:00 Lipid panel (procedure) [code = 92707365] [facility] Future Scheduled Test 2025-08-02 00:00:00 Lipid panel (procedure) [code = 52325475] [facility] Future Scheduled Test 2025-08-02 00:00:00 Lipid panel (procedure) [code = 79463392] [facility] Future Scheduled Test 2025-08-02 00:00:00 Lipid panel (procedure) [code = 52086146] [facility] Future Scheduled Test 2025-08-02 00:00:00 Lipid panel (procedure) [code = 78395743] [facility] Future Scheduled Test 2025-08-02 00:00:00 Lipid panel (procedure) [code = 39021537] [facility] Future Scheduled Test 2025-08-02 00:00:00 Lipid panel (procedure) [code = 38916780] [facility] Future Scheduled Test 2025-08-02 00:00:00 Lipid panel (procedure) [code = 69907399] [facility] Future Scheduled Test 2025-08-02 00:00:00 Lipid panel (procedure) [code = 54493610] [facility] Future Scheduled Test 2025-08-02 00:00:00 Lipid panel (procedure) [code = 62268530] [facility] Future Scheduled Test 2025-08-02 00:00:00 Lipid panel (procedure) [code = 05328679] [facility] Future Scheduled Test 2025-08-02 00:00:00 Lipid panel (procedure) [code = 90199637] [facility] Future Scheduled Test 2025-08-02 00:00:00 Lipid panel (procedure) [code = 08570141] [facility] Future Scheduled Test 2025-08-02 00:00:00 Lipid panel (procedure) [code = 20702515] [facility] Future Scheduled Test 2025-08-02 00:00:00 Lipid panel (procedure) [code = 50475373] [facility] Future Scheduled Test 2025-08-02 00:00:00 Lipid panel (procedure) [code = 12746310] [facility] Future Scheduled Test 2025-08-02 00:00:00 Lipid panel (procedure) [code = 27302040] [facility] Future Scheduled Test 2025-08-02 00:00:00 Lipid panel (procedure) [code = 20404318] [facility] Future Scheduled Test 2025-08-02 00:00:00 Lipid panel (procedure) [code = 29615086] [facility] Future Scheduled Test 2025-08-02 00:00:00 Lipid panel (procedure) [code = 48665071] [facility] Future Scheduled Test 2025-08-02 00:00:00 Lipid panel (procedure) [code = 53646895] [facility] Future Scheduled Test 2025-08-02 00:00:00 Lipid panel (procedure) [code = 32434246] [facility] Future Scheduled Test 2025-08-02 00:00:00 Lipid panel (procedure) [code = 15300954] [facility] Future Scheduled Test 2025-08-02 00:00:00 Lipid panel (procedure) [code = 65298846] [facility] Future Scheduled Test 2025-08-02 00:00:00 Lipid panel (procedure) [code = 06008868] [facility] Future Scheduled Test 2025-08-02 00:00:00 Lipid panel (procedure) [code = 41585640] [facility] Future Scheduled Test 2025-08-02 00:00:00 Lipid panel (procedure) [code = 29509004] [facility] Future Scheduled Test 2025-08-02 00:00:00 Lipid panel (procedure) [code = 13324911] [facility] Future Scheduled Test 2025-08-02 00:00:00 Lipid panel (procedure) [code = 47316898] [facility] Future Scheduled Test 2025-08-02 00:00:00 Lipid panel (procedure) [code = 26013501] [facility] Future Scheduled Test 2025-08-02 00:00:00 Lipid panel (procedure) [code = 65650409] [facility] Future Scheduled Test 2025-08-02 00:00:00 Lipid panel (procedure) [code = 37509205] [facility] Future Scheduled Test 2025-08-02 00:00:00 Lipid panel (procedure) [code = 49314286] [facility] Future Scheduled Test 2025-08-02 00:00:00 Lipid panel (procedure) [code = 69299852] [facility] Future Scheduled Test 2025-08-02 00:00:00 Lipid panel (procedure) [code = 88839759] [facility] Future Scheduled Test 2025-08-02 00:00:00 Lipid panel (procedure) [code = 33430577] [facility] Future Scheduled Test 2025-08-02 00:00:00 Lipid panel (procedure) [code = 95912193] [facility] Future Scheduled Test 2025-08-02 00:00:00 Lipid panel (procedure) [code = 32383747] [facility] Future Scheduled Test 2025-08-02 00:00:00 Lipid panel (procedure) [code = 39379952] [facility] Future Scheduled Test 2025-08-02 00:00:00 Lipid panel (procedure) [code = 09978006] [facility] Future Scheduled Test 2024-05-28 00:00:00 Tobacco Cessation Counseling and Screening (12+) [code = Tobacco Cessation Counseling and Screening (12+)] [facility] Future Scheduled Test 2024-05-28 00:00:00 Tobacco Cessation Counseling and Screening (12+) [code = Tobacco Cessation Counseling and Screening (12+)] [facility] Future Scheduled Test 2024-05-28 00:00:00 Tobacco Cessation Counseling and Screening (12+) [code = Tobacco Cessation Counseling and Screening (12+)] [facility] Future Scheduled Test 2024-05-28 00:00:00 Tobacco Cessation Counseling and Screening (12+) [code = Tobacco Cessation Counseling and Screening (12+)] [facility] Future Scheduled Test 2024-05-28 00:00:00 Tobacco Cessation Counseling and Screening (12+) [code = Tobacco Cessation Counseling and Screening (12+)] [facility] Future Scheduled Test 2024-05-28 00:00:00 Tobacco Cessation Counseling and Screening (12+) [code = Tobacco Cessation Counseling and Screening (12+)] [facility] Future Scheduled Test 2024-05-28 00:00:00 Tobacco Cessation Counseling and Screening (12+) [code = Tobacco Cessation Counseling and Screening (12+)] [facility] Scheduled Test 2024-05-28 00:00:00 Tobacco Cessation Counseling and Screening (12+) [code = Tobacco Cessation Counseling and Screening (12+)] [facility] Scheduled Test 2024-05-28 00:00:00 Tobacco Cessation Counseling and Screening (12+) [code = Tobacco Cessation Counseling and Screening (12+)] [facility] Scheduled Test 2024-05-28 00:00:00 Tobacco Cessation Counseling and Screening (12+) [code = Tobacco Cessation Counseling and Screening (12+)] [facility] Scheduled Test 2024-05-28 00:00:00 Tobacco Cessation Counseling and Screening (12+) [code = Tobacco Cessation Counseling and Screening (12+)] [facility] Scheduled Test 2024-05-28 00:00:00 Tobacco Cessation Counseling and Screening (12+) [code = Tobacco Cessation Counseling and Screening (12+)] [facility] Scheduled Test 2024-05-28 00:00:00 Tobacco Cessation Counseling and Screening (12+) [code = Tobacco Cessation Counseling and Screening (12+)] [facility] Scheduled Test 2024-05-28 00:00:00 Tobacco Cessation Counseling and Screening (12+) [code = Tobacco Cessation Counseling and Screening (12+)] [facility] Future Scheduled Test 2024-05-28 00:00:00 Tobacco Cessation Counseling and Screening (12+) [code = Tobacco Cessation Counseling and Screening (12+)] [facility] Scheduled Test 2024-05-28 00:00:00 Tobacco Cessation Counseling and Screening (12+) [code = Tobacco Cessation Counseling and Screening (12+)] [facility] Scheduled Test 2024-05-28 00:00:00 Tobacco Cessation Counseling and Screening (12+) [code = Tobacco Cessation Counseling and Screening (12+)] [facility] Future Scheduled Test 2024-05-28 00:00:00 Tobacco Cessation Counseling and Screening (12+) [code = Tobacco Cessation Counseling and Screening (12+)] [facility] Future Scheduled Test 2024-05-28 00:00:00 Tobacco Cessation Counseling and Screening (12+) [code = Tobacco Cessation Counseling and Screening (12+)] [facility] Scheduled Test 2024-05-28 00:00:00 Tobacco Cessation Counseling and Screening (12+) [code = Tobacco Cessation Counseling and Screening (12+)] [facility] Scheduled Test 2024-05-28 00:00:00 Tobacco Cessation Counseling and Screening (12+) [code = Tobacco Cessation Counseling and Screening (12+)] [facility] Scheduled Test 2024-05-28 00:00:00 Tobacco Cessation Counseling and Screening (12+) [code = Tobacco Cessation Counseling and Screening (12+)] [facility] Scheduled Test 2024-05-28 00:00:00 Tobacco Cessation Counseling and Screening (12+) [code = Tobacco Cessation Counseling and Screening (12+)] [facility] Scheduled Test 2024-05-28 00:00:00 Tobacco Cessation Counseling and Screening (12+) [code = Tobacco Cessation Counseling and Screening (12+)] [facility] Scheduled Test 2024-05-28 00:00:00 Tobacco Cessation Counseling and Screening (12+) [code = Tobacco Cessation Counseling and Screening (12+)] [facility] Scheduled Test 2024-05-28 00:00:00 Tobacco Cessation Counseling and Screening (12+) [code = Tobacco Cessation Counseling and Screening (12+)] [facility] Future Scheduled Test 2024-05-28 00:00:00 Tobacco Cessation Counseling and Screening (12+) [code = Tobacco Cessation Counseling and Screening (12+)] [facility] Future Scheduled Test 2024-05-28 00:00:00 Tobacco Cessation Counseling and Screening (12+) [code = Tobacco Cessation Counseling and Screening (12+)] [facility] Scheduled Test 2024-05-28 00:00:00 Tobacco Cessation Counseling and Screening (12+) [code = Tobacco Cessation Counseling and Screening (12+)] [facility] Scheduled Test 2024-05-28 00:00:00 Tobacco Cessation Counseling and Screening (12+) [code = Tobacco Cessation Counseling and Screening (12+)] [facility] Scheduled Test 2024-05-28 00:00:00 Tobacco Cessation Counseling and Screening (12+) [code = Tobacco Cessation Counseling and Screening (12+)] [facility] Scheduled Test 2024-05-28 00:00:00 Tobacco Cessation Counseling and Screening (12+) [code = Tobacco Cessation Counseling and Screening (12+)] [facility] Scheduled Test 2024-05-28 00:00:00 Tobacco Cessation Counseling and Screening (12+) [code = Tobacco Cessation Counseling and Screening (12+)] [facility] Scheduled Test 2024-05-28 00:00:00 Tobacco Cessation Counseling and Screening (12+) [code = Tobacco Cessation Counseling and Screening (12+)] [facility] Scheduled Test 2024-05-28 00:00:00 Tobacco Cessation Counseling and Screening (12+) [code = Tobacco Cessation Counseling and Screening (12+)] [facility] Scheduled Test 2024-05-28 00:00:00 Tobacco Cessation Counseling and Screening (12+) [code = Tobacco Cessation Counseling and Screening (12+)] [facility] Scheduled Test 2024-05-28 00:00:00 Tobacco Cessation Counseling and Screening (12+) [code = Tobacco Cessation Counseling and Screening (12+)] [facility] Scheduled Test 2024-05-28 00:00:00 Tobacco Cessation Counseling and Screening (12+) [code = Tobacco Cessation Counseling and Screening (12+)] [facility] Future Scheduled Test 2024-05-28 00:00:00 Tobacco Cessation Counseling and Screening (12+) [code = Tobacco Cessation Counseling and Screening (12+)] [facility] Scheduled Test 2024-05-28 00:00:00 Tobacco Cessation Counseling and Screening (12+) [code = Tobacco Cessation Counseling and Screening (12+)] [facility] Scheduled Test 2024-05-28 00:00:00 Tobacco Cessation Counseling and Screening (12+) [code = Tobacco Cessation Counseling and Screening (12+)] [facility] Scheduled Test 2024-05-28 00:00:00 Tobacco Cessation Counseling and Screening (12+) [code = Tobacco Cessation Counseling and Screening (12+)] [facility] Future Scheduled Test 2024-05-28 00:00:00 Tobacco Cessation Counseling and Screening (12+) [code = Tobacco Cessation Counseling and Screening (12+)] [facility] Future Scheduled Test 2024-05-28 00:00:00 Tobacco Cessation Counseling and Screening (12+) [code = Tobacco Cessation Counseling and Screening (12+)] [facility] Future Scheduled Test 2024-05-28 00:00:00 Tobacco Cessation Counseling and Screening (12+) [code = Tobacco Cessation Counseling and Screening (12+)] [facility] Scheduled Test 2024-05-26 00:00:00 Tobacco Cessation Counseling and Screening (12+) [code = Tobacco Cessation Counseling and Screening (12+)] [facility] Future Scheduled Test 2024-05-26 00:00:00 Tobacco Cessation Counseling and Screening (12+) [code = Tobacco Cessation Counseling and Screening (12+)] [facility] Future Scheduled Test 2024-03-20 00:00:00 Influenza Vaccine (Season Ended) [code = Influenza Vaccine (Season Ended)] [facility] Future Scheduled Test 2024-03-20 00:00:00 Influenza Vaccine (Season Ended) [code = Influenza Vaccine (Season Ended)] [facility] Future Scheduled Test 2024-03-20 00:00:00 Influenza Vaccine (Season Ended) [code = Influenza Vaccine (Season Ended)] [facility] Future Scheduled Test 2024-03-20 00:00:00 Influenza Vaccine (Season Ended) [code = Influenza Vaccine (Season Ended)] [facility] Future Scheduled Test 2024-03-20 00:00:00 Influenza Vaccine (Season Ended) [code = Influenza Vaccine (Season Ended)] [facility] Scheduled Test 2024-03-20 00:00:00 Influenza Vaccine (Season Ended) [code = Influenza Vaccine (Season Ended)] [facility] Scheduled Test 2024-03-20 00:00:00 Influenza Vaccine (Season Ended) [code = Influenza Vaccine (Season Ended)] [facility] Scheduled Test 2024-03-20 00:00:00 Influenza Vaccine (Season Ended) [code = Influenza Vaccine (Season Ended)] [facility] Scheduled Test 2024-03-20 00:00:00 Influenza Vaccine (Season Ended) [code = Influenza Vaccine (Season Ended)] [facility] Scheduled Test 2024-03-20 00:00:00 Influenza Vaccine (Season Ended) [code = Influenza Vaccine (Season Ended)] [facility] Scheduled Test 2023-07-20 00:00:00 DEPRESSION SCREENING (12+) [code = DEPRESSION SCREENING (12+)] [facility] Scheduled Test 2023-07-20 00:00:00 DEPRESSION SCREENING (12+) [code = DEPRESSION SCREENING (12+)] [facility] Scheduled Test 2023-07-20 00:00:00 DEPRESSION SCREENING (12+) [code = DEPRESSION SCREENING (12+)] [facility] Scheduled Test 2023-07-20 00:00:00 DEPRESSION SCREENING (12+) [code = DEPRESSION SCREENING (12+)] [facility] Scheduled Test 2023-07-20 00:00:00 DEPRESSION SCREENING (12+) [code = DEPRESSION SCREENING (12+)] [facility] Scheduled Test 2023-07-20 00:00:00 DEPRESSION SCREENING (12+) [code = DEPRESSION SCREENING (12+)] [facility] Scheduled Test 2023-07-20 00:00:00 DEPRESSION SCREENING (12+) [code = DEPRESSION SCREENING (12+)] [facility] Scheduled Test 2023-07-20 00:00:00 DEPRESSION SCREENING (12+) [code = DEPRESSION SCREENING (12+)] [facility] Scheduled Test 2023-07-20 00:00:00 DEPRESSION SCREENING (12+) [code = DEPRESSION SCREENING (12+)] [facility] Scheduled Test 2023-07-20 00:00:00 DEPRESSION SCREENING (12+) [code = DEPRESSION SCREENING (12+)] [facility] Scheduled Test 2023-07-20 00:00:00 DEPRESSION SCREENING (12+) [code = DEPRESSION SCREENING (12+)] [facility] Scheduled Test 2023-07-20 00:00:00 DEPRESSION SCREENING (12+) [code = DEPRESSION SCREENING (12+)] [facility] Scheduled Test 2023-07-20 00:00:00 DEPRESSION SCREENING (12+) [code = DEPRESSION SCREENING (12+)] [facility] Scheduled Test 2023-07-20 00:00:00 DEPRESSION SCREENING (12+) [code = DEPRESSION SCREENING (12+)] [facility] Scheduled Test 2023-07-20 00:00:00 DEPRESSION SCREENING (12+) [code = DEPRESSION SCREENING (12+)] [facility] Scheduled Test 2023-07-20 00:00:00 DEPRESSION SCREENING (12+) [code = DEPRESSION SCREENING (12+)] [facility] Scheduled Test 2023-07-20 00:00:00 DEPRESSION SCREENING (12+) [code = DEPRESSION SCREENING (12+)] [facility] Scheduled Test 2023-07-20 00:00:00 DEPRESSION SCREENING (12+) [code = DEPRESSION SCREENING (12+)] [facility] Scheduled Test 2023-07-20 00:00:00 DEPRESSION SCREENING (12+) [code = DEPRESSION SCREENING (12+)] [facility] Scheduled Test 2023-07-20 00:00:00 DEPRESSION SCREENING (12+) [code = DEPRESSION SCREENING (12+)] [facility] Scheduled Test 2023-07-20 00:00:00 DEPRESSION SCREENING (12+) [code = DEPRESSION SCREENING (12+)] [facility] Scheduled Test 2023-07-20 00:00:00 DEPRESSION SCREENING (12+) [code = DEPRESSION SCREENING (12+)] [facility] Scheduled Test 2023-07-20 00:00:00 DEPRESSION SCREENING (12+) [code = DEPRESSION SCREENING (12+)] [facility] Scheduled Test 2023-07-20 00:00:00 DEPRESSION SCREENING (12+) [code = DEPRESSION SCREENING (12+)] [facility] Scheduled Test 2023-07-20 00:00:00 DEPRESSION SCREENING (12+) [code = DEPRESSION SCREENING (12+)] [facility] Scheduled Test 2023-07-20 00:00:00 DEPRESSION SCREENING (12+) [code = DEPRESSION SCREENING (12+)] [facility] Scheduled Test 2023-07-20 00:00:00 DEPRESSION SCREENING (12+) [code = DEPRESSION SCREENING (12+)] [facility] Scheduled Test 2023-07-20 00:00:00 DEPRESSION SCREENING (12+) [code = DEPRESSION SCREENING (12+)] [facility] Scheduled Test 2023-07-20 00:00:00 DEPRESSION SCREENING (12+) [code = DEPRESSION SCREENING (12+)] [facility] Scheduled Test 2023-07-20 00:00:00 DEPRESSION SCREENING (12+) [code = DEPRESSION SCREENING (12+)] [facility] Scheduled Test 2023-07-20 00:00:00 DEPRESSION SCREENING (12+) [code = DEPRESSION SCREENING (12+)] [facility] Scheduled Test 2023-07-20 00:00:00 DEPRESSION SCREENING (12+) [code = DEPRESSION SCREENING (12+)] [facility] Scheduled Test 2023-07-20 00:00:00 DEPRESSION SCREENING (12+) [code = DEPRESSION SCREENING (12+)] [facility] Scheduled Test 2023-07-20 00:00:00 DEPRESSION SCREENING (12+) [code = DEPRESSION SCREENING (12+)] [facility] Scheduled Test 2023-07-20 00:00:00 DEPRESSION SCREENING (12+) [code = DEPRESSION SCREENING (12+)] [facility] Scheduled Test 2023-07-20 00:00:00 DEPRESSION SCREENING (12+) [code = DEPRESSION SCREENING (12+)] [facility] Scheduled Test 2023-07-20 00:00:00 DEPRESSION SCREENING (12+) [code = DEPRESSION SCREENING (12+)] [facility] Scheduled Test 2023-03-20 00:00:00 INFLUENZA VACCINE (Season Ended) [code = INFLUENZA VACCINE (Season Ended)] [facility] Scheduled Test 2023-03-20 00:00:00 INFLUENZA VACCINE (Season Ended) [code = INFLUENZA VACCINE (Season Ended)] [facility] Scheduled Test 2023-03-20 00:00:00 INFLUENZA VACCINE (Season Ended) [code = INFLUENZA VACCINE (Season Ended)] [facility] Scheduled Test 2023-03-20 00:00:00 INFLUENZA VACCINE (Season Ended) [code = INFLUENZA VACCINE (Season Ended)] [facility] Scheduled Test 2023-03-20 00:00:00 INFLUENZA VACCINE (Season Ended) [code = INFLUENZA VACCINE (Season Ended)] [facility] Scheduled Test 2023-03-20 00:00:00 INFLUENZA VACCINE (Season Ended) [code = INFLUENZA VACCINE (Season Ended)] [facility] Scheduled Test 2023-03-20 00:00:00 Influenza Vaccine (Season Ended) [code = Influenza Vaccine (Season Ended)] [facility] Scheduled Test 2023-03-20 00:00:00 Influenza Vaccine (Season Ended) [code = Influenza Vaccine (Season Ended)] [facility] Scheduled Test 2023-03-20 00:00:00 Influenza Vaccine (#1) [code = Influenza Vaccine (#1)] [facility] Scheduled Test 2023-03-20 00:00:00 Influenza Vaccine (#1) [code = Influenza Vaccine (#1)] [facility] Scheduled Test 2023-03-20 00:00:00 Influenza Vaccine (#1) [code = Influenza Vaccine (#1)] [facility] Scheduled Test 2023-03-20 00:00:00 Influenza Vaccine (#1) [code = Influenza Vaccine (#1)] [facility] Scheduled Test 2023-03-20 00:00:00 COVID-19 VACCINE ( season) [code = COVID-19 VACCINE ( season)] [facility] Scheduled Test 2023-03-20 00:00:00 Influenza Vaccine (#1) [code = Influenza Vaccine (#1)] [facility] Scheduled Test 2023-03-20 00:00:00 COVID-19 VACCINE ( season) [code = COVID-19 VACCINE ( season)] [facility] Scheduled Test 2023-03-20 00:00:00 Influenza Vaccine (#1) [code = Influenza Vaccine (#1)] [facility] Scheduled Test 2023-03-20 00:00:00 COVID-19 VACCINE ( season) [code = COVID-19 VACCINE ( season)] [facility] Scheduled Test 2023-03-20 00:00:00 Influenza Vaccine (#1) [code = Influenza Vaccine (#1)] [facility] Scheduled Test 2023-03-20 00:00:00 COVID-19 VACCINE ( season) [code = COVID-19 VACCINE ()] [facility] Scheduled Test 2023-03-20 00:00:00 Influenza Vaccine (#1) [code = Influenza Vaccine (#1)] [facility] Scheduled Test 2023-03-20 00:00:00 Influenza Vaccine (#1) [code = Influenza Vaccine (#1)] [facility] Scheduled Test 2023-03-20 00:00:00 COVID-19 VACCINE ( season) [code = COVID-19 VACCINE ()] [facility] Scheduled Test 2023-03-20 00:00:00 Influenza Vaccine (#1) [code = Influenza Vaccine (#1)] [facility] Scheduled Test 2023-03-20 00:00:00 COVID-19 VACCINE ( season) [code = COVID-19 VACCINE ( season)] [facility] Scheduled Test 2023-03-20 00:00:00 Influenza Vaccine (#1) [code = Influenza Vaccine (#1)] [facility] Scheduled Test 2023-03-20 00:00:00 COVID-19 VACCINE ( season) [code = COVID-19 VACCINE ( season)] [facility] Scheduled Test 2023-03-20 00:00:00 Influenza Vaccine (#1) [code = Influenza Vaccine (#1)] [facility] Scheduled Test 2023-03-20 00:00:00 COVID-19 VACCINE ( season) [code = COVID-19 VACCINE ( season)] [facility] Scheduled Test 2023-03-20 00:00:00 Influenza Vaccine (#1) [code = Influenza Vaccine (#1)] [facility] Scheduled Test 2023-03-20 00:00:00 COVID-19 VACCINE ( season) [code = COVID-19 VACCINE ()] [facility] Scheduled Test 2023-03-20 00:00:00 Influenza Vaccine (#1) [code = Influenza Vaccine (#1)] [facility] Scheduled Test 2023-03-20 00:00:00 COVID-19 VACCINE () [code = COVID-19 VACCINE ()] [facility] Scheduled Test 2023-03-20 00:00:00 Influenza Vaccine (#1) [code = Influenza Vaccine (#1)] [facility] Scheduled Test 2023-03-20 00:00:00 COVID-19 VACCINE ( season) [code = COVID-19 VACCINE ()] [facility] Scheduled Test 2023-03-20 00:00:00 Influenza Vaccine (#1) [code = Influenza Vaccine (#1)] [facility] Scheduled Test 2023-03-20 00:00:00 Influenza Vaccine (#1) [code = Influenza Vaccine (#1)] [facility] Scheduled Test 2023-03-20 00:00:00 COVID-19 VACCINE ( season) [code = COVID-19 VACCINE ( season)] [facility] Scheduled Test 2023-03-20 00:00:00 Influenza Vaccine (#1) [code = Influenza Vaccine (#1)] [facility] Scheduled Test 2023-03-20 00:00:00 COVID-19 VACCINE ( season) [code = COVID-19 VACCINE ()] [facility] Scheduled Test 2023-03-20 00:00:00 Influenza Vaccine (#1) [code = Influenza Vaccine (#1)] [facility] Scheduled Test 2023-03-20 00:00:00 COVID-19 VACCINE ( season) [code = COVID-19 VACCINE ( season)] [facility] Scheduled Test 2023-03-20 00:00:00 Influenza Vaccine (#1) [code = Influenza Vaccine (#1)] [facility] Scheduled Test 2023-03-20 00:00:00 COVID-19 VACCINE () [code = COVID-19 VACCINE ()] [facility] Scheduled Test 2023-03-20 00:00:00 Influenza Vaccine (#1) [code = Influenza Vaccine (#1)] [facility] Scheduled Test 2023-03-20 00:00:00 COVID-19 VACCINE ( season) [code = COVID-19 VACCINE ()] [facility] Scheduled Test 2023-03-20 00:00:00 Influenza Vaccine (#1) [code = Influenza Vaccine (#1)] [facility] Scheduled Test 2023-03-20 00:00:00 COVID-19 VACCINE ( season) [code = COVID-19 VACCINE ()] [facility] Scheduled Test 2023-03-20 00:00:00 Influenza Vaccine (#1) [code = Influenza Vaccine (#1)] [facility] Scheduled Test 2023-03-20 00:00:00 Influenza Vaccine (#1) [code = Influenza Vaccine (#1)] [facility] Scheduled Test 2023-03-20 00:00:00 COVID-19 VACCINE ( season) [code = COVID-19 VACCINE ( season)] [facility] Scheduled Test 2023-03-20 00:00:00 Influenza Vaccine (#1) [code = Influenza Vaccine (#1)] [facility] Scheduled Test 2023-03-20 00:00:00 COVID-19 VACCINE ( season) [code = COVID-19 VACCINE ()] [facility] Scheduled Test 2023-03-20 00:00:00 Influenza Vaccine (#1) [code = Influenza Vaccine (#1)] [facility] Scheduled Test 2023-03-20 00:00:00 COVID-19 VACCINE ( season) [code = COVID-19 VACCINE ()] [facility] Scheduled Test 2023-03-20 00:00:00 Influenza Vaccine (#1) [code = Influenza Vaccine (#1)] [facility] Scheduled Test 2023-03-20 00:00:00 COVID-19 VACCINE ( season) [code = COVID-19 VACCINE ()] [facility] Scheduled Test 2023-03-20 00:00:00 Influenza Vaccine (#1) [code = Influenza Vaccine (#1)] [facility] Scheduled Test 2023-03-20 00:00:00 Influenza Vaccine (#1) [code = Influenza Vaccine (#1)] [facility] Scheduled Test 2023-03-20 00:00:00 COVID-19 VACCINE ( season) [code = COVID-19 VACCINE ( season)] [facility] Scheduled Test 2023-03-20 00:00:00 Influenza Vaccine (#1) [code = Influenza Vaccine (#1)] [facility] Scheduled Test 2023-03-20 00:00:00 COVID-19 VACCINE ( season) [code = COVID-19 VACCINE ()] [facility] Scheduled Test 2023-03-20 00:00:00 Influenza Vaccine (#1) [code = Influenza Vaccine (#1)] [facility] Scheduled Test 2023-03-20 00:00:00 COVID-19 VACCINE ( season) [code = COVID-19 VACCINE ( season)] [facility] Scheduled Test 2023-03-20 00:00:00 Influenza Vaccine (#1) [code = Influenza Vaccine (#1)] [facility] Scheduled Test 2023-03-20 00:00:00 COVID-19 VACCINE ( season) [code = COVID-19 VACCINE ()] [facility] Scheduled Test 2023-03-20 00:00:00 Influenza Vaccine (#1) [code = Influenza Vaccine (#1)] [facility] Scheduled Test 2023-03-20 00:00:00 COVID-19 VACCINE ( season) [code = COVID-19 VACCINE ()] [facility] Scheduled Test 2023-03-20 00:00:00 Influenza Vaccine (#1) [code = Influenza Vaccine (#1)] [facility] Scheduled Test 2023-03-20 00:00:00 COVID-19 VACCINE ( season) [code = COVID-19 VACCINE ( season)] [facility] Scheduled Test 2023-03-20 00:00:00 Influenza Vaccine (#1) [code = Influenza Vaccine (#1)] [facility] Scheduled Test 2023-03-20 00:00:00 Influenza Vaccine (#1) [code = Influenza Vaccine (#1)] [facility] Scheduled Test 2023-03-20 00:00:00 COVID-19 VACCINE ( season) [code = COVID-19 VACCINE ( season)] [facility] Scheduled Test 2023-03-20 00:00:00 Influenza Vaccine (#1) [code = Influenza Vaccine (#1)] [facility] Scheduled Test 2023-03-20 00:00:00 COVID-19 VACCINE ( season) [code = COVID-19 VACCINE ( season)] [facility] Scheduled Test 2023-03-20 00:00:00 Influenza Vaccine (#1) [code = Influenza Vaccine (#1)] [facility] Scheduled Test 2023-03-20 00:00:00 COVID-19 VACCINE ( season) [code = COVID-19 VACCINE ()] [facility] Scheduled Test 2023-03-20 00:00:00 COVID-19 VACCINE () [code = COVID-19 VACCINE ()] [facility] Scheduled Test 2023-03-20 00:00:00 COVID-19 VACCINE () [code = COVID-19 VACCINE ()] [facility] Scheduled Test 2023-03-20 00:00:00 COVID-19 VACCINE () [code = COVID-19 VACCINE ()] [facility] Scheduled Test 2023-03-20 00:00:00 COVID-19 VACCINE () [code = COVID-19 VACCINE ()] [facility] Scheduled Test 2023-03-20 00:00:00 COVID-19 VACCINE ( season) [code = COVID-19 VACCINE ()] [facility] Scheduled Test 2023-03-20 00:00:00 Influenza Vaccine (#1) [code = Influenza Vaccine (#1)] [facility] Scheduled Test 2023-03-20 00:00:00 COVID-19 VACCINE ( season) [code = COVID-19 VACCINE ()] [facility] Scheduled Test 2023-03-20 00:00:00 COVID-19 VACCINE ( season) [code = COVID-19 VACCINE ( season)] [facility] Scheduled Test 2023-03-20 00:00:00 COVID-19 VACCINE ( season) [code = COVID-19 VACCINE ( season)] [facility] Scheduled Test 2023-03-20 00:00:00 Influenza Vaccine (#1) [code = Influenza Vaccine (#1)] [facility] Scheduled Test 2023-03-20 00:00:00 Influenza Vaccine (#1) [code = Influenza Vaccine (#1)] [facility] Sched[facility] Test 2023-03-20 00:00:00 Influenza Vaccine (#1) [code = Influenza Vaccine (#1)] [facility] Test 2023-03-20 00:00:00 Influenza Vaccine (#1) [code = Influenza Vaccine (#1)] [facility] Test 2023-03-20 00:00:00 Influenza Vaccine (#1) [code = Influenza Vaccine (#1)] [facility] Test 2023-03-20 00:00:00 Influenza Vaccine (#1) [code = Influenza Vaccine (#1)] [facility] Test 2023-03-20 00:00:00 Influenza Vaccine (#1) [code = Influenza Vaccine (#1)] [facility] Test 2023-03-20 00:00:00 Influenza Vaccine (#1) [code = Influenza Vaccine (#1)] [facility] Test 2023-03-20 00:00:00 Influenza Vaccine (#1) [code = Influenza Vaccine (#1)] [facility] Test 2023-03-20 00:00:00 COVID-19 VACCINE ( season) [code = COVID-19 VACCINE ( season)] [facility] Test 2023-03-20 00:00:00 COVID-19 VACCINE ( season) [code = COVID-19 VACCINE ( season)] [facility] Scheduled Test 2022-07-20 00:00:00 DEPRESSION SCREENING (12+) [code = DEPRESSION SCREENING (12+)] [facility] Sched[facility] Test 2022-07-20 00:00:00 DEPRESSION SCREENING (12+) [code = DEPRESSION SCREENING (12+)] [facility] Scheduled Test 2022-07-20 00:00:00 DEPRESSION SCREENING (12+) [code = DEPRESSION SCREENING (12+)] [facility] Scheduled Test 2022-07-20 00:00:00 DEPRESSION SCREENING (12+) [code = DEPRESSION SCREENING (12+)] [facility] Scheduled Test 2022-07-20 00:00:00 DEPRESSION SCREENING (12+) [code = DEPRESSION SCREENING (12+)] [facility] Scheduled Test 2022-07-20 00:00:00 DEPRESSION SCREENING (12+) [code = DEPRESSION SCREENING (12+)] [facility] Scheduled Test 2022-07-20 00:00:00 DEPRESSION SCREENING (12+) [code = DEPRESSION SCREENING (12+)] [facility] Sched[facility] Test 2022-07-20 00:00:00 DEPRESSION SCREENING (12+) [code = DEPRESSION SCREENING (12+)] [facility] Test 2022-07-20 00:00:00 DEPRESSION SCREENING (12+) [code = DEPRESSION SCREENING (12+)] [facility] Scheduled Test 2022-07-20 00:00:00 DEPRESSION SCREENING (12+) [code = DEPRESSION SCREENING (12+)] [facility] Scheduled Test 2022-07-20 00:00:00 DEPRESSION SCREENING (12+) [code = DEPRESSION SCREENING (12+)] [facility] Scheduled Test 2022-07-20 00:00:00 DEPRESSION SCREENING (12+) [code = DEPRESSION SCREENING (12+)] [facility] Scheduled Test 2022-07-20 00:00:00 DEPRESSION SCREENING (12+) [code = DEPRESSION SCREENING (12+)] [facility] Scheduled Test 2022-07-20 00:00:00 DEPRESSION SCREENING (12+) [code = DEPRESSION SCREENING (12+)] [facility] Scheduled Test 2022-07-20 00:00:00 DEPRESSION SCREENING (12+) [code = DEPRESSION SCREENING (12+)] [facility] Scheduled Test 2022-07-20 00:00:00 DEPRESSION SCREENING (12+) [code = DEPRESSION SCREENING (12+)] [facility] Scheduled Test 2022-07-20 00:00:00 DEPRESSION SCREENING (12+) [code = DEPRESSION SCREENING (12+)] [facility] Scheduled Test 2022-07-20 00:00:00 DEPRESSION SCREENING (12+) [code = DEPRESSION SCREENING (12+)] [facility] Scheduled Test 2022-07-20 00:00:00 DEPRESSION SCREENING (12+) [code = DEPRESSION SCREENING (12+)] [facility] Scheduled Test 2022-07-20 00:00:00 DEPRESSION SCREENING (12+) [code = DEPRESSION SCREENING (12+)] [facility] Scheduled Test 2022-07-20 00:00:00 DEPRESSION SCREENING (12+) [code = DEPRESSION SCREENING (12+)] [facility] Scheduled Test 2022-07-20 00:00:00 DEPRESSION SCREENING (12+) [code = DEPRESSION SCREENING (12+)] [facility] Scheduled Test 2022-07-20 00:00:00 DEPRESSION SCREENING (12+) [code = DEPRESSION SCREENING (12+)] [facility] Scheduled Test 2022-07-20 00:00:00 DEPRESSION SCREENING (12+) [code = DEPRESSION SCREENING (12+)] [facility] Scheduled Test 2022-07-20 00:00:00 DEPRESSION SCREENING (12+) [code = DEPRESSION SCREENING (12+)] [facility] Scheduled Test 2022-07-20 00:00:00 DEPRESSION SCREENING (12+) [code = DEPRESSION SCREENING (12+)] [facility] Scheduled Test 2022-07-20 00:00:00 DEPRESSION SCREENING (12+) [code = DEPRESSION SCREENING (12+)] [facility] Scheduled Test 2022-07-20 00:00:00 DEPRESSION SCREENING (12+) [code = DEPRESSION SCREENING (12+)] [facility] Scheduled Test 2022-07-20 00:00:00 DEPRESSION SCREENING (12+) [code = DEPRESSION SCREENING (12+)] [facility] Scheduled Test 2022-07-20 00:00:00 DEPRESSION SCREENING (12+) [code = DEPRESSION SCREENING (12+)] [facility] Scheduled Test 2022-07-20 00:00:00 DEPRESSION SCREENING (12+) [code = DEPRESSION SCREENING (12+)] [facility] Scheduled Test 2022-07-20 00:00:00 DEPRESSION SCREENING (12+) [code = DEPRESSION SCREENING (12+)] [facility] Scheduled Test 2022-07-20 00:00:00 DEPRESSION SCREENING (12+) [code = DEPRESSION SCREENING (12+)] [facility] Scheduled Test 2022-06-21 00:00:00 COVID-19 VACCINE (4 - Booster for Pfizer series) [code = COVID-19 VACCINE (4 - Booster for Pfizer series)] [facility] Scheduled Test 2022-06-21 00:00:00 COVID-19 VACCINE (4 - Booster for Pfizer series) [code = COVID-19 VACCINE (4 - Booster for Pfizer series)] [facility] Scheduled Test 2022-06-21 00:00:00 COVID-19 VACCINE (4 - Booster for Pfizer series) [code = COVID-19 VACCINE (4 - Booster for Pfizer series)] [facility] Scheduled Test 2022-06-21 00:00:00 COVID-19 VACCINE (4 - Booster for Pfizer series) [code = COVID-19 VACCINE (4 - Booster for Pfizer series)] [facility] Scheduled Test 2022-04-16 00:00:00 COVID-19 VACCINE (4 - Booster for Pfizer series) [code = COVID-19 VACCINE (4 - Booster for Pfizer series)] [facility] Future Scheduled Test 2022-04-16 00:00:00 COVID-19 VACCINE (4 - Booster for Pfizer series) [code = COVID-19 VACCINE (4 - Booster for Pfizer series)] [facility] Future Scheduled Test 2022-04-16 00:00:00 COVID-19 VACCINE (4 - Booster for Pfizer series) [code = COVID-19 VACCINE (4 - Booster for Pfizer series)] [facility] Future Scheduled Test 2022-04-16 00:00:00 COVID-19 VACCINE (4 - Booster for Pfizer series) [code = COVID-19 VACCINE (4 - Booster for Pfizer series)] [facility] Future Scheduled Test 2022-04-16 00:00:00 COVID-19 VACCINE (4 - Booster for Pfizer series) [code = COVID-19 VACCINE (4 - Booster for Pfizer series)] [facility] Future Scheduled Test 2022-04-16 00:00:00 COVID-19 VACCINE (4 - Booster for Pfizer series) [code = COVID-19 VACCINE (4 - Booster for Pfizer series)] [facility] Future Scheduled Test 2022-04-16 00:00:00 COVID-19 VACCINE (4 - Booster for Pfizer series) [code = COVID-19 VACCINE (4 - Booster for Pfizer series)] [facility] Future Scheduled Test 2022-04-16 00:00:00 COVID-19 VACCINE (4 - Booster for Pfizer series) [code = COVID-19 VACCINE (4 - Booster for Pfizer series)] [facility] Future Scheduled Test 2022-04-16 00:00:00 COVID-19 VACCINE (4 - Booster for Pfizer series) [code = COVID-19 VACCINE (4 - Booster for Pfizer series)] [facility] Future Scheduled Test 2022-04-16 00:00:00 COVID-19 VACCINE (4 - Booster for Pfizer series) [code = COVID-19 VACCINE (4 - Booster for Pfizer series)] [facility] Future Scheduled Test 2022-04-16 00:00:00 COVID-19 VACCINE (4 - Booster for Pfizer series) [code = COVID-19 VACCINE (4 - Booster for Pfizer series)] [facility] Future Scheduled Test 2022-04-16 00:00:00 COVID-19 VACCINE (4 - Booster for Pfizer series) [code = COVID-19 VACCINE (4 - Booster for Pfizer series)] [facility] Future Scheduled Test 2022-04-16 00:00:00 COVID-19 VACCINE (4 - Booster for Pfizer series) [code = COVID-19 VACCINE (4 - Booster for Pfizer series)] [facility] Future Scheduled Test 2022-04-16 00:00:00 COVID-19 VACCINE (4 - Booster for Pfizer series) [code = COVID-19 VACCINE (4 - Booster for Pfizer series)] [facility] Future Scheduled Test 2022-04-16 00:00:00 COVID-19 VACCINE (4 - Booster for Pfizer series) [code = COVID-19 VACCINE (4 - Booster for Pfizer series)] [facility] Future Scheduled Test 2022-04-16 00:00:00 COVID-19 VACCINE (4 - Booster for Pfizer series) [code = COVID-19 VACCINE (4 - Booster for Pfizer series)] [facility] Future Scheduled Test 2022-04-16 00:00:00 COVID-19 VACCINE (4 - Booster for Pfizer series) [code = COVID-19 VACCINE (4 - Booster for Pfizer series)] [facility] Future Scheduled Test 2022-04-16 00:00:00 COVID-19 VACCINE (4 - Booster for Pfizer series) [code = COVID-19 VACCINE (4 - Booster for Pfizer series)] [facility] Future Scheduled Test 2022-04-16 00:00:00 COVID-19 VACCINE (4 - Booster for Pfizer series) [code = COVID-19 VACCINE (4 - Booster for Pfizer series)] [facility] Future Scheduled Test 2022-04-16 00:00:00 COVID-19 VACCINE (4 - Booster for Pfizer series) [code = COVID-19 VACCINE (4 - Booster for Pfizer series)] [facility] Future Scheduled Test 2022-04-16 00:00:00 COVID-19 VACCINE (4 - Pfizer series) [code = COVID-19 VACCINE (4 - Pfizer series)] [facility] Future Scheduled Test 2022-04-16 00:00:00 COVID-19 VACCINE (4 - Pfizer series) [code = COVID-19 VACCINE (4 - Pfizer series)] [facility] Future Scheduled Test 2022-04-16 00:00:00 COVID-19 VACCINE (4 - Pfizer series) [code = COVID-19 VACCINE (4 - Pfizer series)] [facility] Future Scheduled Test 2022-04-16 00:00:00 COVID-19 VACCINE (4 - Pfizer series) [code = COVID-19 VACCINE (4 - Pfizer series)] [facility] Future Scheduled Test 2022-04-16 00:00:00 COVID-19 VACCINE (4 - Booster for Pfizer series) [code = COVID-19 VACCINE (4 - Booster for Pfizer series)] [facility] Future Scheduled Test 2022-04-16 00:00:00 COVID-19 VACCINE (4 - Pfizer series) [code = COVID-19 VACCINE (4 - Pfizer series)] [facility] Future Scheduled Test 2022-03-20 00:00:00 INFLUENZA VACCINE (#1) [code = INFLUENZA VACCINE (#1)] [facility] Future Scheduled Test 2022-03-20 00:00:00 INFLUENZA VACCINE (#1) [code = INFLUENZA VACCINE (#1)] [facility] Future Scheduled Test 2022-03-20 00:00:00 INFLUENZA VACCINE (#1) [code = INFLUENZA VACCINE (#1)] [facility] Future Scheduled Test 2022-03-20 00:00:00 INFLUENZA VACCINE (#1) [code = INFLUENZA VACCINE (#1)] [facility] Future Scheduled Test 2022-01-14 00:00:00 SHINGLES VACCINES (1 of 2) [code = SHINGLES VACCINES (1 of 2)] [facility] Future Scheduled Test 2022-01-14 00:00:00 SHINGLES VACCINES (1 of 2) [code = SHINGLES VACCINES (1 of 2)] [facility] Future Scheduled Test 2022-01-14 00:00:00 SHINGLES VACCINES (1 of 2) [code = SHINGLES VACCINES (1 of 2)] [facility] Future Scheduled Test 2022-01-14 00:00:00 SHINGLES VACCINES (1 of 2) [code = SHINGLES VACCINES (1 of 2)] [facility] Future Scheduled Test 2022-01-14 00:00:00 SHINGLES VACCINES (1 of 2) [code = SHINGLES VACCINES (1 of 2)] [facility] Future Scheduled Test 2022-01-14 00:00:00 SHINGLES VACCINES (1 of 2) [code = SHINGLES VACCINES (1 of 2)] [facility] Future Scheduled Test 2022-01-14 00:00:00 SHINGLES VACCINES (1 of 2) [code = SHINGLES VACCINES (1 of 2)] [facility] Future Scheduled Test 2022-01-14 00:00:00 SHINGLES VACCINES (1 of 2) [code = SHINGLES VACCINES (1 of 2)] [facility] Future Scheduled Test 2022-01-14 00:00:00 SHINGLES VACCINES (1 of 2) [code = SHINGLES VACCINES (1 of 2)] [facility] Future Scheduled Test 2022-01-14 00:00:00 SHINGLES VACCINES (1 of 2) [code = SHINGLES VACCINES (1 of 2)] [facility] Future Scheduled Test 2022-01-14 00:00:00 SHINGLES VACCINES (1 of 2) [code = SHINGLES VACCINES (1 of 2)] [facility] Future Scheduled Test 2022-01-14 00:00:00 SHINGLES VACCINES (1 of 2) [code = SHINGLES VACCINES (1 of 2)] [facility] Future Scheduled Test 2022-01-14 00:00:00 SHINGLES VACCINES (1 of 2) [code = SHINGLES VACCINES (1 of 2)] [facility] Future Scheduled Test 2022-01-14 00:00:00 SHINGLES VACCINES (1 of 2) [code = SHINGLES VACCINES (1 of 2)] [facility] Future Scheduled Test 2022-01-14 00:00:00 SHINGLES VACCINES (1 of 2) [code = SHINGLES VACCINES (1 of 2)] [facility] Future Scheduled Test 2022-01-14 00:00:00 Screening for malignant neoplasm of lung (procedure) [code = [id number]] [facility] Future Scheduled Test 2022-01-14 00:00:00 SHINGLES VACCINES (1 of 2) [code = SHINGLES VACCINES (1 of 2)] [facility] Future Scheduled Test 2022-01-14 00:00:00 Screening for malignant neoplasm of lung (procedure) [code = 524565197] [facility] Future Scheduled Test 2022-01-14 00:00:00 SHINGLES VACCINES (1 of 2) [code = SHINGLES VACCINES (1 of 2)] [facility] Future Scheduled Test 2022-01-14 00:00:00 Screening for malignant neoplasm of lung (procedure) [code = 384782783] [facility] Future Scheduled Test 2022-01-14 00:00:00 SHINGLES VACCINES (1 of 2) [code = SHINGLES VACCINES (1 of 2)] [facility] Future Scheduled Test 2022-01-14 00:00:00 Screening for malignant neoplasm of lung (procedure) [code = 669979883] [facility] Future Scheduled Test 2022-01-14 00:00:00 SHINGLES VACCINES (1 of 2) [code = SHINGLES VACCINES (1 of 2)] [facility] Future Scheduled Test 2022-01-14 00:00:00 Screening for malignant neoplasm of lung (procedure) [code = 810581168] [facility] Future Scheduled Test 2022-01-14 00:00:00 SHINGLES VACCINES (1 of 2) [code = SHINGLES VACCINES (1 of 2)] [facility] Future Scheduled Test 2022-01-14 00:00:00 Screening for malignant neoplasm of lung (procedure) [code = 848818922] [facility] Future Scheduled Test 2022-01-14 00:00:00 SHINGLES VACCINES (1 of 2) [code = SHINGLES VACCINES (1 of 2)] [facility] Future Scheduled Test 2022-01-14 00:00:00 Screening for malignant neoplasm of lung (procedure) [code = 900493566] [facility] Future Scheduled Test 2022-01-14 00:00:00 SHINGLES VACCINES (1 of 2) [code = SHINGLES VACCINES (1 of 2)] [facility] Future Scheduled Test 2022-01-14 00:00:00 Screening for malignant neoplasm of lung (procedure) [code = 515957062] [facility] Future Scheduled Test 2022-01-14 00:00:00 SHINGLES VACCINES (1 of 2) [code = SHINGLES VACCINES (1 of 2)] [facility] Future Scheduled Test 2022-01-14 00:00:00 Screening for malignant neoplasm of lung (procedure) [code = 149956578] [facility] Future Scheduled Test 2022-01-14 00:00:00 SHINGLES VACCINES (1 of 2) [code = SHINGLES VACCINES (1 of 2)] [facility] Future Scheduled Test 2022-01-14 00:00:00 Screening for malignant neoplasm of lung (procedure) [code = 930326501] [facility] Future Scheduled Test 2022-01-14 00:00:00 SHINGLES VACCINES (1 of 2) [code = SHINGLES VACCINES (1 of 2)] [facility] Future Scheduled Test 2022-01-14 00:00:00 Screening for malignant neoplasm of lung (procedure) [code = 570607111] [facility] Future Scheduled Test 2022-01-14 00:00:00 SHINGLES VACCINES (1 of 2) [code = SHINGLES VACCINES (1 of 2)] [facility] Future Scheduled Test 2022-01-14 00:00:00 Screening for malignant neoplasm of lung (procedure) [code = 427514616] [facility] Future Scheduled Test 2022-01-14 00:00:00 SHINGLES VACCINES (1 of 2) [code = SHINGLES VACCINES (1 of 2)] [facility] Future Scheduled Test 2022-01-14 00:00:00 Screening for malignant neoplasm of lung (procedure) [code = 025700212] [facility] Future Scheduled Test 2022-01-14 00:00:00 SHINGLES VACCINES (1 of 2) [code = SHINGLES VACCINES (1 of 2)] [facility] Future Scheduled Test 2022-01-14 00:00:00 Screening for malignant neoplasm of lung (procedure) [code = 478871898] [facility] Future Scheduled Test 2022-01-14 00:00:00 SHINGLES VACCINES (1 of 2) [code = SHINGLES VACCINES (1 of 2)] [facility] Future Scheduled Test 2022-01-14 00:00:00 Screening for malignant neoplasm of lung (procedure) [code = 878174576] [facility] Future Scheduled Test 2022-01-14 00:00:00 SHINGLES VACCINES (1 of 2) [code = SHINGLES VACCINES (1 of 2)] [facility] Future Scheduled Test 2022-01-14 00:00:00 Screening for malignant neoplasm of lung (procedure) [code = 542967783] [facility] Future Scheduled Test 2022-01-14 00:00:00 SHINGLES VACCINES (1 of 2) [code = SHINGLES VACCINES (1 of 2)] [facility] Future Scheduled Test 2022-01-14 00:00:00 Screening for malignant neoplasm of lung (procedure) [code = 954509396] [facility] Future Scheduled Test 2022-01-14 00:00:00 SHINGLES VACCINES (1 of 2) [code = SHINGLES VACCINES (1 of 2)] [facility] Future Scheduled Test 2022-01-14 00:00:00 Screening for malignant neoplasm of lung (procedure) [code = 871730918] [facility] Future Scheduled Test 2022-01-14 00:00:00 SHINGLES VACCINES (1 of 2) [code = SHINGLES VACCINES (1 of 2)] [facility] Future Scheduled Test 2022-01-14 00:00:00 Screening for malignant neoplasm of lung (procedure) [code = 127115871] [facility] Future Scheduled Test 2022-01-14 00:00:00 Screening for malignant neoplasm of lung (procedure) [code = 251570752] [facility] Future Scheduled Test 2022-01-14 00:00:00 SHINGLES VACCINES (1 of 2) [code = SHINGLES VACCINES (1 of 2)] [facility] Future Scheduled Test 2022-01-14 00:00:00 SHINGLES VACCINES (1 of 2) [code = SHINGLES VACCINES (1 of 2)] [facility] Future Scheduled Test 2022-01-14 00:00:00 Screening for malignant neoplasm of lung (procedure) [code = 254202261] [facility] Future Scheduled Test 2022-01-14 00:00:00 SHINGLES VACCINES (1 of 2) [code = SHINGLES VACCINES (1 of 2)] [facility] Future Scheduled Test 2022-01-14 00:00:00 Screening for malignant neoplasm of lung (procedure) [code = 688013227] [facility] Future Scheduled Test 2022-01-14 00:00:00 SHINGLES VACCINES (1 of 2) [code = SHINGLES VACCINES (1 of 2)] [facility] Future Scheduled Test 2022-01-14 00:00:00 Screening for malignant neoplasm of lung (procedure) [code = 174433788] [facility] Future Scheduled Test 2022-01-14 00:00:00 SHINGLES VACCINES (1 of 2) [code = SHINGLES VACCINES (1 of 2)] [facility] Future Scheduled Test 2022-01-14 00:00:00 Screening for malignant neoplasm of lung (procedure) [code = 512805309] [facility] Future Scheduled Test 2022-01-14 00:00:00 Screening for malignant neoplasm of lung (procedure) [code = 245176776] [facility] Future Scheduled Test 2022-01-14 00:00:00 SHINGLES VACCINES (1 of 2) [code = SHINGLES VACCINES (1 of 2)] [facility] Future Scheduled Test 2022-01-14 00:00:00 SHINGLES VACCINES (1 of 2) [code = SHINGLES VACCINES (1 of 2)] [facility] Future Scheduled Test 2022-01-14 00:00:00 Screening for malignant neoplasm of lung (procedure) [code = 476308598] [facility] Future Scheduled Test 2022-01-14 00:00:00 SHINGLES VACCINES (1 of 2) [code = SHINGLES VACCINES (1 of 2)] [facility] Future Scheduled Test 2022-01-14 00:00:00 Screening for malignant neoplasm of lung (procedure) [code = 623577019] [facility] Future Scheduled Test 2022-01-14 00:00:00 SHINGLES VACCINES (1 of 2) [code = SHINGLES VACCINES (1 of 2)] [facility] Future Scheduled Test 2022-01-14 00:00:00 Screening for malignant neoplasm of lung (procedure) [code = 594639545] [facility] Future Scheduled Test 2022-01-14 00:00:00 SHINGLES VACCINES (1 of 2) [code = SHINGLES VACCINES (1 of 2)] [facility] Future Scheduled Test 2022-01-14 00:00:00 Screening for malignant neoplasm of lung (procedure) [code = 593528499] [facility] Future Scheduled Test 2022-01-14 00:00:00 SHINGLES VACCINES (1 of 2) [code = SHINGLES VACCINES (1 of 2)] [facility] Future Scheduled Test 2022-01-14 00:00:00 Screening for malignant neoplasm of lung (procedure) [code = 266323330] [facility] Future Scheduled Test 2022-01-14 00:00:00 SHINGLES VACCINES (1 of 2) [code = SHINGLES VACCINES (1 of 2)] [facility] Future Scheduled Test 2022-01-14 00:00:00 Screening for malignant neoplasm of lung (procedure) [code = 889157436] [facility] Future Scheduled Test 2022-01-14 00:00:00 Screening for malignant neoplasm of lung (procedure) [code = 834142666] [facility] Future Scheduled Test 2022-01-14 00:00:00 SHINGLES VACCINES (1 of 2) [code = SHINGLES VACCINES (1 of 2)] [facility] Future Scheduled Test 2022-01-14 00:00:00 SHINGLES VACCINES (1 of 2) [code = SHINGLES VACCINES (1 of 2)] [facility] Future Scheduled Test 2022-01-14 00:00:00 Screening for malignant neoplasm of lung (procedure) [code = 118929510] [facility] Future Scheduled Test 2022-01-14 00:00:00 SHINGLES VACCINES (1 of 2) [code = SHINGLES VACCINES (1 of 2)] [facility] Future Scheduled Test 2022-01-14 00:00:00 Screening for malignant neoplasm of lung (procedure) [code = 998825519] [facility] Future Scheduled Test 2022-01-14 00:00:00 SHINGLES VACCINES (1 of 2) [code = SHINGLES VACCINES (1 of 2)] [facility] Future Scheduled Test 2022-01-14 00:00:00 Screening for malignant neoplasm of lung (procedure) [code = 465709017] [facility] Future Scheduled Test 2022-01-14 00:00:00 SHINGLES VACCINES (1 of 2) [code = SHINGLES VACCINES (1 of 2)] [facility] Future Scheduled Test 2022-01-14 00:00:00 Screening for malignant neoplasm of lung (procedure) [code = 958145928] [facility] Future Scheduled Test 2022-01-14 00:00:00 SHINGLES VACCINES (1 of 2) [code = SHINGLES VACCINES (1 of 2)] [facility] Future Scheduled Test 2022-01-14 00:00:00 Screening for malignant neoplasm of lung (procedure) [code = 272203181] [facility] Future Scheduled Test 2022-01-14 00:00:00 SHINGLES VACCINES (1 of 2) [code = SHINGLES VACCINES (1 of 2)] [facility] Future Scheduled Test 2022-01-14 00:00:00 Screening for malignant neoplasm of lung (procedure) [code = 488364549] [facility] Future Scheduled Test 2022-01-14 00:00:00 SHINGLES VACCINES (1 of 2) [code = SHINGLES VACCINES (1 of 2)] [facility] Future Scheduled Test 2022-01-14 00:00:00 Screening for malignant neoplasm of lung (procedure) [code = 101445125] [facility] Future Scheduled Test 2022-01-14 00:00:00 SHINGLES VACCINES (1 of 2) [code = SHINGLES VACCINES (1 of 2)] [facility] Future Scheduled Test 2022-01-14 00:00:00 Screening for malignant neoplasm of lung (procedure) [code = 419411861] [facility] Future Scheduled Test 2022-01-14 00:00:00 SHINGLES VACCINES (1 of 2) [code = SHINGLES VACCINES (1 of 2)] [facility] Future Scheduled Test 2022-01-14 00:00:00 Screening for malignant neoplasm of lung (procedure) [code = 315959797] [facility] Future Scheduled Test 2022-01-14 00:00:00 SHINGLES VACCINES (1 of 2) [code = SHINGLES VACCINES (1 of 2)] [facility] Future Scheduled Test 2022-01-14 00:00:00 Screening for malignant neoplasm of lung (procedure) [code = 029261293] [facility] Future Scheduled Test 2022-01-14 00:00:00 SHINGLES VACCINES (1 of 2) [code = SHINGLES VACCINES (1 of 2)] [facility] Future Scheduled Test 2022-01-14 00:00:00 Screening for malignant neoplasm of lung (procedure) [code = 568579015] [facility] Future Scheduled Test 2022-01-14 00:00:00 SHINGLES VACCINES (1 of 2) [code = SHINGLES VACCINES (1 of 2)] [facility] Future Scheduled Test 2022-01-14 00:00:00 Screening for malignant neoplasm of lung (procedure) [code = 559429807] [facility] Future Scheduled Test 2022-01-14 00:00:00 SHINGLES VACCINES (1 of 2) [code = SHINGLES VACCINES (1 of 2)] [facility] Future Scheduled Test 2022-01-14 00:00:00 Screening for malignant neoplasm of lung (procedure) [code = 911807014] [facility] Future Scheduled Test 2022-01-14 00:00:00 SHINGLES VACCINES (1 of 2) [code = SHINGLES VACCINES (1 of 2)] [facility] Future Scheduled Test 2022-01-14 00:00:00 SHINGLES VACCINES (1 of 2) [code = SHINGLES VACCINES (1 of 2)] [facility] Future Scheduled Test 2022-01-14 00:00:00 SHINGLES VACCINES (1 of 2) [code = SHINGLES VACCINES (1 of 2)] [facility] Future Scheduled Test 2022-01-14 00:00:00 Screening for malignant neoplasm of lung (procedure) [code = 616570636] [facility] Future Scheduled Test 2022-01-14 00:00:00 SHINGLES VACCINES (1 of 2) [code = SHINGLES VACCINES (1 of 2)] [facility] Future Scheduled Test 2022-01-14 00:00:00 Screening for malignant neoplasm of lung (procedure) [code = 426581610] [facility] Future Scheduled Test 2022-01-14 00:00:00 SHINGLES VACCINES (1 of 2) [code = SHINGLES VACCINES (1 of 2)] [facility] Future Scheduled Test 2022-01-14 00:00:00 Screening for malignant neoplasm of lung (procedure) [code = 137166398] [facility] Future Scheduled Test 2022-01-14 00:00:00 SHINGLES VACCINES (1 of 2) [code = SHINGLES VACCINES (1 of 2)] [facility] Future Scheduled Test 2022-01-14 00:00:00 Screening for malignant neoplasm of lung (procedure) [code = 032626750] [facility] Future Scheduled Test 2022-01-14 00:00:00 SHINGLES VACCINES (1 of 2) [code = SHINGLES VACCINES (1 of 2)] [facility] Future Scheduled Test 2022-01-14 00:00:00 Screening for malignant neoplasm of lung (procedure) [code = 143312035] [facility] Future Scheduled Test 2022-01-14 00:00:00 SHINGLES VACCINES (1 of 2) [code = SHINGLES VACCINES (1 of 2)] [facility] Future Scheduled Test 2022-01-14 00:00:00 Screening for malignant neoplasm of lung (procedure) [code = 355822867] [facility] Future Scheduled Test 2022-01-14 00:00:00 SHINGLES VACCINES (1 of 2) [code = SHINGLES VACCINES (1 of 2)] [facility] Future Scheduled Test 2022-01-14 00:00:00 Screening for malignant neoplasm of lung (procedure) [code = 685712280] [facility] Future Scheduled Test 2022-01-14 00:00:00 SHINGLES VACCINES (1 of 2) [code = SHINGLES VACCINES (1 of 2)] [facility] Future Scheduled Test 2022-01-14 00:00:00 Screening for malignant neoplasm of lung (procedure) [code = 188497731] [facility] Future Scheduled Test 2022-01-14 00:00:00 SHINGLES VACCINES (1 of 2) [code = SHINGLES VACCINES (1 of 2)] [facility] Future Scheduled Test 2013-12-15 00:00:00 PNEUMOCOCCAL VACCINE 0-64 YRS (2 - PCV) [code = PNEUMOCOCCAL VACCINE 0-64 YRS (2 - PCV)] [facility] Future Scheduled Test 2013-12-15 00:00:00 PNEUMOCOCCAL VACCINE 0-64 YRS (2 - PCV) [code = PNEUMOCOCCAL VACCINE 0-64 YRS (2 - PCV)] [facility] Future Scheduled Test 2013-12-15 00:00:00 PNEUMOCOCCAL VACCINE 0-64 YRS (2 - PCV) [code = PNEUMOCOCCAL VACCINE 0-64 YRS (2 - PCV)] [facility] Future Scheduled Test 2013-12-15 00:00:00 PNEUMOCOCCAL VACCINE 0-64 YRS (2 - PCV) [code = PNEUMOCOCCAL VACCINE 0-64 YRS (2 - PCV)] [facility] Future Scheduled Test 2013-12-15 00:00:00 Pneumococcal Vaccine: 0-64 Years (2 - PCV) [code = Pneumococcal Vaccine: 0-64 Years (2 - PCV)] [facility] Future Scheduled Test 2013-12-15 00:00:00 Pneumococcal Vaccine: 0-64 Years (2 - PCV) [code = Pneumococcal Vaccine: 0-64 Years (2 - PCV)] [facility] Future Scheduled Test 2013-12-15 00:00:00 Pneumococcal Vaccine: 0-64 Years (2 - PCV) [code = Pneumococcal Vaccine: 0-64 Years (2 - PCV)] [facility] Future Scheduled Test 2013-12-15 00:00:00 Pneumococcal Vaccine: 0-64 Years (2 - PCV) [code = Pneumococcal Vaccine: 0-64 Years (2 - PCV)] [facility] Future Scheduled Test 2013-12-15 00:00:00 Pneumococcal Vaccine: 0-64 Years (2 - PCV) [code = Pneumococcal Vaccine: 0-64 Years (2 - PCV)] [facility] Future Scheduled Test 2013-12-15 00:00:00 Pneumococcal Vaccine: 0-64 Years (2 - PCV) [code = Pneumococcal Vaccine: 0-64 Years (2 - PCV)] [facility] Future Scheduled Test 2013-12-15 00:00:00 Pneumococcal Vaccine: 0-64 Years (2 - PCV) [code = Pneumococcal Vaccine: 0-64 Years (2 - PCV)] [facility] Future Scheduled Test 2013-12-15 00:00:00 Pneumococcal Vaccine: 0-64 Years (2 - PCV) [code = Pneumococcal Vaccine: 0-64 Years (2 - PCV)] [facility] Future Scheduled Test 2013-12-15 00:00:00 Pneumococcal Vaccine: 0-64 Years (2 - PCV) [code = Pneumococcal Vaccine: 0-64 Years (2 - PCV)] [facility] Future Scheduled Test 2013-12-15 00:00:00 Pneumococcal Vaccine: 0-64 Years (2 - PCV) [code = Pneumococcal Vaccine: 0-64 Years (2 - PCV)] [facility] Future Scheduled Test 2013-12-15 00:00:00 Pneumococcal Vaccine: 0-64 Years (2 - PCV) [code = Pneumococcal Vaccine: 0-64 Years (2 - PCV)] [facility] Future Scheduled Test 2013-12-15 00:00:00 Pneumococcal Vaccine: 0-64 Years (2 - PCV) [code = Pneumococcal Vaccine: 0-64 Years (2 - PCV)] [facility] Future Scheduled Test 2013-12-15 00:00:00 Pneumococcal Vaccine: 0-64 Years (2 - PCV) [code = Pneumococcal Vaccine: 0-64 Years (2 - PCV)] [facility] Future Scheduled Test 2013-12-15 00:00:00 Pneumococcal Vaccine: 0-64 Years (2 - PCV) [code = Pneumococcal Vaccine: 0-64 Years (2 - PCV)] [facility] Scheduled Test 2013-12-15 00:00:00 Pneumococcal Vaccine: 0-64 Years (2 - PCV) [code = Pneumococcal Vaccine: 0-64 Years (2 - PCV)] [facility] Scheduled Test 2013-12-15 00:00:00 Pneumococcal Vaccine: 0-64 Years (2 - PCV) [code = Pneumococcal Vaccine: 0-64 Years (2 - PCV)] [facility] Scheduled Test 2013-12-15 00:00:00 Pneumococcal Vaccine: 0-64 Years (2 - PCV) [code = Pneumococcal Vaccine: 0-64 Years (2 - PCV)] [facility] Future Scheduled Test 2013-12-15 00:00:00 Pneumococcal Vaccine: 0-64 Years (2 - PCV) [code = Pneumococcal Vaccine: 0-64 Years (2 - PCV)] [facility] Scheduled Test 2013-12-15 00:00:00 Pneumococcal Vaccine: 0-64 Years (2 - PCV) [code = Pneumococcal Vaccine: 0-64 Years (2 - PCV)] [facility] Scheduled Test 2013-12-15 00:00:00 Pneumococcal Vaccine: 0-64 Years (2 - PCV) [code = Pneumococcal Vaccine: 0-64 Years (2 - PCV)] [facility] Scheduled Test 2013-12-15 00:00:00 Pneumococcal Vaccine: 0-64 Years (2 of 2 - PCV) [code = Pneumococcal Vaccine: 0-64 Years (2 of 2 - PCV)] [facility] Scheduled Test 2013-12-15 00:00:00 Pneumococcal Vaccine: 0-64 Years (2 of 2 - PCV) [code = Pneumococcal Vaccine: 0-64 Years (2 of 2 - PCV)] [facility] Scheduled Test 2013-12-15 00:00:00 Pneumococcal Vaccine: 0-64 Years (2 of 2 - PCV) [code = Pneumococcal Vaccine: 0-64 Years (2 of 2 - PCV)] [facility] Scheduled Test 2013-12-15 00:00:00 Pneumococcal Vaccine: 0-64 Years (2 of 2 - PCV) [code = Pneumococcal Vaccine: 0-64 Years (2 of 2 - PCV)] [facility] Scheduled Test 2013-12-15 00:00:00 Pneumococcal Vaccine: 0-64 Years (2 of 2 - PCV) [code = Pneumococcal Vaccine: 0-64 Years (2 of 2 - PCV)] [facility] Scheduled Test 2013-12-15 00:00:00 Pneumococcal Vaccine: 0-64 Years (2 of 2 - PCV) [code = Pneumococcal Vaccine: 0-64 Years (2 of 2 - PCV)] [facility] Scheduled Test 2013-12-15 00:00:00 Pneumococcal Vaccine: 0-64 Years (2 of 2 - PCV) [code = Pneumococcal Vaccine: 0-64 Years (2 of 2 - PCV)] [facility] Scheduled Test 2013-12-15 00:00:00 Pneumococcal Vaccine: 0-64 Years (2 of 2 - PCV) [code = Pneumococcal Vaccine: 0-64 Years (2 of 2 - PCV)] [facility] Scheduled Test 2013-12-15 00:00:00 Pneumococcal Vaccine: 0-64 Years (2 of 2 - PCV) [code = Pneumococcal Vaccine: 0-64 Years (2 of 2 - PCV)] [facility] Scheduled Test 2013-12-15 00:00:00 Pneumococcal Vaccine: 0-64 Years (2 of 2 - PCV) [code = Pneumococcal Vaccine: 0-64 Years (2 of 2 - PCV)] [facility] Scheduled Test 2013-12-15 00:00:00 Pneumococcal Vaccine: 0-64 Years (2 of 2 - PCV) [code = Pneumococcal Vaccine: 0-64 Years (2 of 2 - PCV)] [facility] Scheduled Test 2013-12-15 00:00:00 Pneumococcal Vaccine: 0-64 Years (2 of 2 - PCV) [code = Pneumococcal Vaccine: 0-64 Years (2 of 2 - PCV)] [facility] Scheduled Test 2013-12-15 00:00:00 Pneumococcal Vaccine: 0-64 Years (2 of 2 - PCV) [code = Pneumococcal Vaccine: 0-64 Years (2 of 2 - PCV)] [facility] Scheduled Test 2013-12-15 00:00:00 Pneumococcal Vaccine: 0-64 Years (2 of 2 - PCV) [code = Pneumococcal Vaccine: 0-64 Years (2 of 2 - PCV)] [facility] Scheduled Test 2013-12-15 00:00:00 Pneumococcal Vaccine: 0-64 Years (2 of 2 - PCV) [code = Pneumococcal Vaccine: 0-64 Years (2 of 2 - PCV)] [facility] Scheduled Test 2013-12-15 00:00:00 Pneumococcal Vaccine: 0-64 Years (2 of 2 - PCV) [code = Pneumococcal Vaccine: 0-64 Years (2 of 2 - PCV)] [facility] Scheduled Test 2013-12-15 00:00:00 Pneumococcal Vaccine: 0-64 Years (2 of 2 - PCV) [code = Pneumococcal Vaccine: 0-64 Years (2 of 2 - PCV)] [facility] Scheduled Test 2013-12-15 00:00:00 Pneumococcal Vaccine: 0-64 Years (2 of 2 - PCV) [code = Pneumococcal Vaccine: 0-64 Years (2 of 2 - PCV)] [facility] Scheduled Test 2013-12-15 00:00:00 Pneumococcal Vaccine: 0-64 Years (2 - PCV) [code = Pneumococcal Vaccine: 0-64 Years (2 - PCV)] [facility] Scheduled Test 2013-12-15 00:00:00 Pneumococcal Vaccine: 0-64 Years (2 - PCV) [code = Pneumococcal Vaccine: 0-64 Years (2 - PCV)] [facility] Scheduled Test 2013-12-15 00:00:00 Pneumococcal Vaccine: 0-64 Years (2 - PCV) [code = Pneumococcal Vaccine: 0-64 Years (2 - PCV)] [facility] Scheduled Test 2013-12-15 00:00:00 Pneumococcal Vaccine: 0-64 Years (2 of 2 - PCV) [code = Pneumococcal Vaccine: 0-64 Years (2 of 2 - PCV)] [facility] Scheduled Test 1993-01-14 00:00:00 Screening for malignant neoplasm of cervix (procedure) [code = [id number]] [facility] Scheduled Test 1993-01-14 00:00:00 Screening for malignant neoplasm of cervix (procedure) [code = [id number]] [facility] Scheduled Test 1993-01-14 00:00:00 Screening for malignant neoplasm of cervix (procedure) [code = [id number]] [facility] Scheduled Test 1993-01-14 00:00:00 Screening for malignant neoplasm of cervix (procedure) [code = [id number]] [facility] Scheduled Test 1993-01-14 00:00:00 Screening for malignant neoplasm of cervix (procedure) [code = [id number]] [facility] Scheduled Test 1993-01-14 00:00:00 Screening for malignant neoplasm of cervix (procedure) [code = [id number]] [facility] Scheduled Test 1993-01-14 00:00:00 Screening for malignant neoplasm of cervix (procedure) [code = [id number]] [facility] Scheduled Test 1993-01-14 00:00:00 Screening for malignant neoplasm of cervix (procedure) [code = [id number]] [facility] Scheduled Test 1993-01-14 00:00:00 Screening for malignant neoplasm of cervix (procedure) [code = [id number]] [facility] Scheduled Test 1993-01-14 00:00:00 Screening for malignant neoplasm of cervix (procedure) [code = [id number]] [facility] Scheduled Test 1993-01-14 00:00:00 Screening for malignant neoplasm of cervix (procedure) [code = [id number]] [facility] Scheduled Test 1993-01-14 00:00:00 Screening for malignant neoplasm of cervix (procedure) [code = [id number]] [facility] Scheduled Test 1993-01-14 00:00:00 Screening for malignant neoplasm of cervix (procedure) [code = [id number]] [facility] Scheduled Test 1993-01-14 00:00:00 Screening for malignant neoplasm of cervix (procedure) [code = [id number]] [facility] Scheduled Test 1993-01-14 00:00:00 Screening for malignant neoplasm of cervix (procedure) [code = [id number]] [facility] Scheduled Test 1993-01-14 00:00:00 Screening for malignant neoplasm of cervix (procedure) [code = [id number]] [facility] Scheduled Test 1993-01-14 00:00:00 Screening for malignant neoplasm of cervix (procedure) [code = [id number]] [facility] Scheduled Test 1993-01-14 00:00:00 Screening for malignant neoplasm of cervix (procedure) [code = 516946048] [facility] Scheduled Test 1993-01-14 00:00:00 Screening for malignant neoplasm of cervix (procedure) [code = [id number]] [facility] Scheduled Test 1993-01-14 00:00:00 Screening for malignant neoplasm of cervix (procedure) [code = 627088290] [facility] Scheduled Test 1993-01-14 00:00:00 Screening for malignant neoplasm of cervix (procedure) [code = 582109562] [facility] Scheduled Test 1993-01-14 00:00:00 Screening for malignant neoplasm of cervix (procedure) [code = [id number]] [facility] Scheduled Test 1993-01-14 00:00:00 Screening for malignant neoplasm of cervix (procedure) [code = 525654902] [facility] Scheduled Test 1993-01-14 00:00:00 Screening for malignant neoplasm of cervix (procedure) [code = [id number]] [facility] Scheduled Test 1993-01-14 00:00:00 Screening for malignant neoplasm of cervix (procedure) [code = 832931474] [facility] Scheduled Test 1993-01-14 00:00:00 Screening for malignant neoplasm of cervix (procedure) [code = 245336318] [facility] Scheduled Test 1993-01-14 00:00:00 Screening for malignant neoplasm of cervix (procedure) [code = 269712533] [facility] Scheduled Test 1993-01-14 00:00:00 Screening for malignant neoplasm of cervix (procedure) [code = [id number]] [facility] Scheduled Test 1993-01-14 00:00:00 Screening for malignant neoplasm of cervix (procedure) [code = [id number]] [facility] Scheduled Test 1993-01-14 00:00:00 Screening for malignant neoplasm of cervix (procedure) [code = 790458021] [facility] Scheduled Test 1993-01-14 00:00:00 Screening for malignant neoplasm of cervix (procedure) [code = 363761232] [facility] Scheduled Test 1993-01-14 00:00:00 Screening for malignant neoplasm of cervix (procedure) [code = [id number]] [facility] Scheduled Test 1993-01-14 00:00:00 Screening for malignant neoplasm of cervix (procedure) [code = [id number]] [facility] Scheduled Test 1993-01-14 00:00:00 Screening for malignant neoplasm of cervix (procedure) [code = [id number]] [facility] Scheduled Test 1993-01-14 00:00:00 Screening for malignant neoplasm of cervix (procedure) [code = [id number]] [facility] Scheduled Test 1993-01-14 00:00:00 Screening for malignant neoplasm of cervix (procedure) [code = [id number]] [facility] Scheduled Test 1993-01-14 00:00:00 Screening for malignant neoplasm of cervix (procedure) [code = [id number]] [facility] Scheduled Test 1993-01-14 00:00:00 Screening for malignant neoplasm of cervix (procedure) [code = [id number]] [facility] Scheduled Test 1993-01-14 00:00:00 Screening for malignant neoplasm of cervix (procedure) [code = 414670953] [facility] Scheduled Test 1993-01-14 00:00:00 Screening for malignant neoplasm of cervix (procedure) [code = [id number]] [facility] Scheduled Test 1993-01-14 00:00:00 Screening for malignant neoplasm of cervix (procedure) [code = [id number]] [facility] Scheduled Test 1993-01-14 00:00:00 Screening for malignant neoplasm of cervix (procedure) [code = 415879184] [facility] Scheduled Test 1993-01-14 00:00:00 Screening for malignant neoplasm of cervix (procedure) [code = 154306472] [facility] Scheduled Test 1993-01-14 00:00:00 Screening for malignant neoplasm of cervix (procedure) [code = 613841530] [facility] Scheduled Test 1993-01-14 00:00:00 Screening for malignant neoplasm of cervix (procedure) [code = 539377699] [facility] Scheduled Test 1993-01-14 00:00:00 Screening for malignant neoplasm of cervix (procedure) [code = 998476794] [facility] Scheduled Test 1993-01-14 00:00:00 Screening for malignant neoplasm of cervix (procedure) [code = 778978861] [facility] Scheduled Test 1993-01-14 00:00:00 Screening for malignant neoplasm of cervix (procedure) [code = 726827150] [facility] Scheduled Test 1993-01-14 00:00:00 Screening for malignant neoplasm of cervix (procedure) [code = [id number]] [facility] Scheduled Test 1993-01-14 00:00:00 Screening for malignant neoplasm of cervix (procedure) [code = [id number]] [facility] Scheduled Test 1993-01-14 00:00:00 Screening for malignant neoplasm of cervix (procedure) [code = [id number]] [facility] Scheduled Test 1993-01-14 00:00:00 Screening for malignant neoplasm of cervix (procedure) [code = 650686766] [facility] Scheduled Test 1993-01-14 00:00:00 Screening for malignant neoplasm of cervix (procedure) [code = 679899254] [facility] Scheduled Test 1993-01-14 00:00:00 Screening for malignant neoplasm of cervix (procedure) [code = 986309384] [facility] Scheduled Test 1993-01-14 00:00:00 Screening for malignant neoplasm of cervix (procedure) [code = 708030632] [facility] Scheduled Test 1993-01-14 00:00:00 Screening for malignant neoplasm of cervix (procedure) [code = 296969711] [facility] Scheduled Test 1993-01-14 00:00:00 Screening for malignant neoplasm of cervix (procedure) [code = [id number]] [facility] Scheduled Test 1993-01-14 00:00:00 Screening for malignant neoplasm of cervix (procedure) [code = 332947044] [facility] Scheduled Test 1993-01-14 00:00:00 Screening for malignant neoplasm of cervix (procedure) [code = 708165730] [facility] Scheduled Test 1993-01-14 00:00:00 Screening for malignant neoplasm of cervix (procedure) [code = 755613695] [facility] Scheduled Test 1993-01-14 00:00:00 Screening for malignant neoplasm of cervix (procedure) [code = 399181175] [facility] Scheduled Test 1993-01-14 00:00:00 Screening for malignant neoplasm of cervix (procedure) [code = [id number]] [facility] Scheduled Test 1993-01-14 00:00:00 Screening for malignant neoplasm of cervix (procedure) [code = [id number]] [facility] Scheduled Test 1993-01-14 00:00:00 Screening for malignant neoplasm of cervix (procedure) [code = 679535226] [facility] Scheduled Test 1993-01-14 00:00:00 Screening for malignant neoplasm of cervix (procedure) [code = 832143590] [facility] Scheduled Test 1993-01-14 00:00:00 Screening for malignant neoplasm of cervix (procedure) [code = [id number]] [facility] Scheduled Test 1993-01-14 00:00:00 Screening for malignant neoplasm of cervix (procedure) [code = 581563665] [facility] Scheduled Test 1993-01-14 00:00:00 Screening for malignant neoplasm of cervix (procedure) [code = 114078936] [facility] Scheduled Test 1993-01-14 00:00:00 Screening for malignant neoplasm of cervix (procedure) [code = 405986441] [facility] Scheduled Test 1993-01-14 00:00:00 Screening for malignant neoplasm of cervix (procedure) [code = [id number]] [facility] Scheduled Test 1991-01-14 00:00:00 DTAP/TDAP/TD VACCINES (1 - Tdap) [code = DTAP/TDAP/TD VACCINES (1 - Tdap)] [facility] Scheduled Test 1991-01-14 00:00:00 DTAP/TDAP/TD VACCINES (1 - Tdap) [code = DTAP/TDAP/TD VACCINES (1 - Tdap)] [facility] Scheduled Test 1991-01-14 00:00:00 DTAP/TDAP/TD VACCINES (1 - Tdap) [code = DTAP/TDAP/TD VACCINES (1 - Tdap)] [facility] Scheduled Test 1991-01-14 00:00:00 DTAP/TDAP/TD VACCINES (1 - Tdap) [code = DTAP/TDAP/TD VACCINES (1 - Tdap)] [facility] Scheduled Test 1991-01-14 00:00:00 DTAP/TDAP/TD VACCINES (1 - Tdap) [code = DTAP/TDAP/TD VACCINES (1 - Tdap)] [facility] Scheduled Test 1991-01-14 00:00:00 DTAP/TDAP/TD VACCINES (1 - Tdap) [code = DTAP/TDAP/TD VACCINES (1 - Tdap)] [facility] Scheduled Test 1991-01-14 00:00:00 DTAP/TDAP/TD VACCINES (1 - Tdap) [code = DTAP/TDAP/TD VACCINES (1 - Tdap)] [facility] Scheduled Test 1991-01-14 00:00:00 DTAP/TDAP/TD VACCINES (1 - Tdap) [code = DTAP/TDAP/TD VACCINES (1 - Tdap)] [facility] Scheduled Test 1991-01-14 00:00:00 DTAP/TDAP/TD VACCINES (1 - Tdap) [code = DTAP/TDAP/TD VACCINES (1 - Tdap)] [facility] Scheduled Test 1991-01-14 00:00:00 DTAP/TDAP/TD VACCINES (1 - Tdap) [code = DTAP/TDAP/TD VACCINES (1 - Tdap)] [facility] Scheduled Test 1991-01-14 00:00:00 DTAP/TDAP/TD VACCINES (1 - Tdap) [code = DTAP/TDAP/TD VACCINES (1 - Tdap)] [facility] Scheduled Test 1991-01-14 00:00:00 DTAP/TDAP/TD VACCINES (1 - Tdap) [code = DTAP/TDAP/TD VACCINES (1 - Tdap)] [facility] Scheduled Test 1991-01-14 00:00:00 DTAP/TDAP/TD VACCINES (1 - Tdap) [code = DTAP/TDAP/TD VACCINES (1 - Tdap)] [facility] Scheduled Test 1991-01-14 00:00:00 DTAP/TDAP/TD VACCINES (1 - Tdap) [code = DTAP/TDAP/TD VACCINES (1 - Tdap)] [facility] Scheduled Test 1991-01-14 00:00:00 DTAP/TDAP/TD VACCINES (1 - Tdap) [code = DTAP/TDAP/TD VACCINES (1 - Tdap)] [facility] Scheduled Test 1991-01-14 00:00:00 DTAP/TDAP/TD VACCINES (1 - Tdap) [code = DTAP/TDAP/TD VACCINES (1 - Tdap)] [facility] Scheduled Test 1991-01-14 00:00:00 DTAP/TDAP/TD VACCINES (1 - Tdap) [code = DTAP/TDAP/TD VACCINES (1 - Tdap)] [facility] Scheduled Test 1991-01-14 00:00:00 DTAP/TDAP/TD VACCINES (1 - Tdap) [code = DTAP/TDAP/TD VACCINES (1 - Tdap)] [facility] Scheduled Test 1991-01-14 00:00:00 DTAP/TDAP/TD VACCINES (1 - Tdap) [code = DTAP/TDAP/TD VACCINES (1 - Tdap)] [facility] Scheduled Test 1991-01-14 00:00:00 DTAP/TDAP/TD VACCINES (1 - Tdap) [code = DTAP/TDAP/TD VACCINES (1 - Tdap)] [facility] Scheduled Test 1991-01-14 00:00:00 DTAP/TDAP/TD VACCINES (1 - Tdap) [code = DTAP/TDAP/TD VACCINES (1 - Tdap)] [facility] Scheduled Test 1991-01-14 00:00:00 DTAP/TDAP/TD VACCINES (1 - Tdap) [code = DTAP/TDAP/TD VACCINES (1 - Tdap)] [facility] Scheduled Test 1991-01-14 00:00:00 DTAP/TDAP/TD VACCINES (1 - Tdap) [code = DTAP/TDAP/TD VACCINES (1 - Tdap)] [facility] Scheduled Test 1991-01-14 00:00:00 DTAP/TDAP/TD VACCINES (1 - Tdap) [code = DTAP/TDAP/TD VACCINES (1 - Tdap)] [facility] Scheduled Test 1991-01-14 00:00:00 DTAP/TDAP/TD VACCINES (1 - Tdap) [code = DTAP/TDAP/TD VACCINES (1 - Tdap)] [facility] Scheduled Test 1991-01-14 00:00:00 DTAP/TDAP/TD VACCINES (1 - Tdap) [code = DTAP/TDAP/TD VACCINES (1 - Tdap)] [facility] Scheduled Test 1991-01-14 00:00:00 DTAP/TDAP/TD VACCINES (1 - Tdap) [code = DTAP/TDAP/TD VACCINES (1 - Tdap)] [facility] Scheduled Test 1991-01-14 00:00:00 DTAP/TDAP/TD VACCINES (1 - Tdap) [code = DTAP/TDAP/TD VACCINES (1 - Tdap)] [facility] Scheduled Test 1991-01-14 00:00:00 DTAP/TDAP/TD VACCINES (1 - Tdap) [code = DTAP/TDAP/TD VACCINES (1 - Tdap)] [facility] Scheduled Test 1991-01-14 00:00:00 DTAP/TDAP/TD VACCINES (1 - Tdap) [code = DTAP/TDAP/TD VACCINES (1 - Tdap)] [facility] Scheduled Test 1991-01-14 00:00:00 DTAP/TDAP/TD VACCINES (1 - Tdap) [code = DTAP/TDAP/TD VACCINES (1 - Tdap)] [facility] Scheduled Test 1991-01-14 00:00:00 DTAP/TDAP/TD VACCINES (1 - Tdap) [code = DTAP/TDAP/TD VACCINES (1 - Tdap)] [facility] Scheduled Test 1991-01-14 00:00:00 DTAP/TDAP/TD VACCINES (1 - Tdap) [code = DTAP/TDAP/TD VACCINES (1 - Tdap)] [facility] Scheduled Test 1991-01-14 00:00:00 DTAP/TDAP/TD VACCINES (1 - Tdap) [code = DTAP/TDAP/TD VACCINES (1 - Tdap)] [facility] Scheduled Test 1991-01-14 00:00:00 DTAP/TDAP/TD VACCINES (1 - Tdap) [code = DTAP/TDAP/TD VACCINES (1 - Tdap)] [facility] Scheduled Test 1991-01-14 00:00:00 DTAP/TDAP/TD VACCINES (1 - Tdap) [code = DTAP/TDAP/TD VACCINES (1 - Tdap)] [facility] Scheduled Test 1991-01-14 00:00:00 DTAP/TDAP/TD VACCINES (1 - Tdap) [code = DTAP/TDAP/TD VACCINES (1 - Tdap)] [facility] Scheduled Test 1991-01-14 00:00:00 DTAP/TDAP/TD VACCINES (1 - Tdap) [code = DTAP/TDAP/TD VACCINES (1 - Tdap)] [facility] Scheduled Test 1991-01-14 00:00:00 DTAP/TDAP/TD VACCINES (1 - Tdap) [code = DTAP/TDAP/TD VACCINES (1 - Tdap)] [facility] Scheduled Test 1991-01-14 00:00:00 DTAP/TDAP/TD VACCINES (1 - Tdap) [code = DTAP/TDAP/TD VACCINES (1 - Tdap)] [facility] Scheduled Test 1991-01-14 00:00:00 DTAP/TDAP/TD VACCINES (1 - Tdap) [code = DTAP/TDAP/TD VACCINES (1 - Tdap)] [facility] Scheduled Test 1991-01-14 00:00:00 DTAP/TDAP/TD VACCINES (1 - Tdap) [code = DTAP/TDAP/TD VACCINES (1 - Tdap)] [facility] Scheduled Test 1991-01-14 00:00:00 DTAP/TDAP/TD VACCINES (1 - Tdap) [code = DTAP/TDAP/TD VACCINES (1 - Tdap)] [facility] Scheduled Test 1991-01-14 00:00:00 DTAP/TDAP/TD VACCINES (1 - Tdap) [code = DTAP/TDAP/TD VACCINES (1 - Tdap)] [facility] Scheduled Test 1991-01-14 00:00:00 DTAP/TDAP/TD VACCINES (1 - Tdap) [code = DTAP/TDAP/TD VACCINES (1 - Tdap)] [facility] Scheduled Test 1991-01-14 00:00:00 DTAP/TDAP/TD VACCINES (1 - Tdap) [code = DTAP/TDAP/TD VACCINES (1 - Tdap)] [facility] Scheduled Test 1991-01-14 00:00:00 DTAP/TDAP/TD VACCINES (1 - Tdap) [code = DTAP/TDAP/TD VACCINES (1 - Tdap)] [facility] Scheduled Test 1991-01-14 00:00:00 DTAP/TDAP/TD VACCINES (1 - Tdap) [code = DTAP/TDAP/TD VACCINES (1 - Tdap)] [facility] Scheduled Test 1991-01-14 00:00:00 DTAP/TDAP/TD VACCINES (1 - Tdap) [code = DTAP/TDAP/TD VACCINES (1 - Tdap)] [facility] Scheduled Test 1991-01-14 00:00:00 DTAP/TDAP/TD VACCINES (1 - Tdap) [code = DTAP/TDAP/TD VACCINES (1 - Tdap)] [facility] [facility] 1991-01-14 00:00:00 DTAP/TDAP/TD VACCINES (1 - Tdap) [code = DTAP/TDAP/TD VACCINES (1 - Tdap)] [facility] 1991-01-14 00:00:00 DTAP/TDAP/TD VACCINES (1 - Tdap) [code = DTAP/TDAP/TD VACCINES (1 - Tdap)] [facility] 1991-01-14 00:00:00 DTAP/TDAP/TD VACCINES (1 - Tdap) [code = DTAP/TDAP/TD VACCINES (1 - Tdap)] [facility] 1991-01-14 00:00:00 DTAP/TDAP/TD VACCINES (1 - Tdap) [code = DTAP/TDAP/TD VACCINES (1 - Tdap)] [facility] 1991-01-14 00:00:00 DTAP/TDAP/TD VACCINES (1 - Tdap) [code = DTAP/TDAP/TD VACCINES (1 - Tdap)] [facility] 1991-01-14 00:00:00 DTAP/TDAP/TD VACCINES (1 - Tdap) [code = DTAP/TDAP/TD VACCINES (1 - Tdap)] [facility] 1991-01-14 00:00:00 DTAP/TDAP/TD VACCINES (1 - Tdap) [code = DTAP/TDAP/TD VACCINES (1 - Tdap)] [facility] 1991-01-14 00:00:00 DTAP/TDAP/TD VACCINES (1 - Tdap) [code = DTAP/TDAP/TD VACCINES (1 - Tdap)] [facility] 1991-01-14 00:00:00 DTAP/TDAP/TD VACCINES (1 - Tdap) [code = DTAP/TDAP/TD VACCINES (1 - Tdap)] [facility] 1991-01-14 00:00:00 DTAP/TDAP/TD VACCINES (1 - Tdap) [code = DTAP/TDAP/TD VACCINES (1 - Tdap)] [facility] 1991-01-14 00:00:00 DTAP/TDAP/TD VACCINES (1 - Tdap) [code = DTAP/TDAP/TD VACCINES (1 - Tdap)] [facility] 1991-01-14 00:00:00 DTAP/TDAP/TD VACCINES (1 - Tdap) [code = DTAP/TDAP/TD VACCINES (1 - Tdap)] [facility] Test 1991-01-14 00:00:00 DTAP/TDAP/TD VACCINES (1 - Tdap) [code = DTAP/TDAP/TD VACCINES (1 - Tdap)] [facility] 1991-01-14 00:00:00 DTAP/TDAP/TD VACCINES (1 - Tdap) [code = DTAP/TDAP/TD VACCINES (1 - Tdap)] [facility] 1991-01-14 00:00:00 DTAP/TDAP/TD VACCINES (1 - Tdap) [code = DTAP/TDAP/TD VACCINES (1 - Tdap)] [facility] 1991-01-14 00:00:00 DTAP/TDAP/TD VACCINES (1 - Tdap) [code = DTAP/TDAP/TD VACCINES (1 - Tdap)] [facility] 1991-01-14 00:00:00 DTAP/TDAP/TD VACCINES (1 - Tdap) [code = DTAP/TDAP/TD VACCINES (1 - Tdap)] [facility] 1991-01-14 00:00:00 DTAP/TDAP/TD VACCINES (1 - Tdap) [code = DTAP/TDAP/TD VACCINES (1 - Tdap)] [facility] 1991-01-14 00:00:00 DTAP/TDAP/TD VACCINES (1 - Tdap) [code = DTAP/TDAP/TD VACCINES (1 - Tdap)] [facility] 1991-01-14 00:00:00 DTAP/TDAP/TD VACCINES (1 - Tdap) [code = DTAP/TDAP/TD VACCINES (1 - Tdap)] [facility] 1990-01-14 00:00:00 HEPATITIS C SCREENING [code = HEPATITIS C SCREENING] [facility] 1990-01-14 00:00:00 HEPATITIS C SCREENING [code = HEPATITIS C SCREENING] [facility] 1990-01-14 00:00:00 HEPATITIS C SCREENING [code = HEPATITIS C SCREENING] [facility] 1990-01-14 00:00:00 HEPATITIS C SCREENING [code = HEPATITIS C SCREENING] [facility] 1990-01-14 00:00:00 HEPATITIS C SCREENING [code = HEPATITIS C SCREENING] [facility] 1990-01-14 00:00:00 HEPATITIS C SCREENING [code = HEPATITIS C SCREENING] [facility] 1990-01-14 00:00:00 HEPATITIS C SCREENING [code = HEPATITIS C SCREENING] [facility] 1990-01-14 00:00:00 HEPATITIS C SCREENING [code = HEPATITIS C SCREENING] [facility] 1990-01-14 00:00:00 HEPATITIS C SCREENING [code = HEPATITIS C SCREENING] [facility] 1990-01-14 00:00:00 HEPATITIS C SCREENING [code = HEPATITIS C SCREENING] [facility] 1990-01-14 00:00:00 HEPATITIS C SCREENING [code = HEPATITIS C SCREENING] [facility] 1990-01-14 00:00:00 HEPATITIS C SCREENING [code = HEPATITIS C SCREENING] [facility] 1990-01-14 00:00:00 HEPATITIS C SCREENING [code = HEPATITIS C SCREENING] [facility] 1990-01-14 00:00:00 HEPATITIS C SCREENING [code = HEPATITIS C SCREENING] [facility] 1990-01-14 00:00:00 HEPATITIS C SCREENING [code = HEPATITIS C SCREENING] [facility] 1990-01-14 00:00:00 HEPATITIS C SCREENING [code = HEPATITIS C SCREENING] [facility] 1990-01-14 00:00:00 HEPATITIS C SCREENING [code = HEPATITIS C SCREENING] [facility] 1990-01-14 00:00:00 HEPATITIS C SCREENING [code = HEPATITIS C SCREENING] [facility] 1990-01-14 00:00:00 HEPATITIS C SCREENING [code = HEPATITIS C SCREENING] [facility] 1990-01-14 00:00:00 HEPATITIS C SCREENING [code = HEPATITIS C SCREENING] [facility] 1990-01-14 00:00:00 HEPATITIS C SCREENING [code = HEPATITIS C SCREENING] [facility] 1990-01-14 00:00:00 HEPATITIS C SCREENING [code = HEPATITIS C SCREENING] [facility] 1990-01-14 00:00:00 HEPATITIS C SCREENING [code = HEPATITIS C SCREENING] [facility] 1990-01-14 00:00:00 HEPATITIS C SCREENING [code = HEPATITIS C SCREENING] [facility] 1990-01-14 00:00:00 HEPATITIS C SCREENING [code = HEPATITIS C SCREENING] [facility] 1990-01-14 00:00:00 HEPATITIS C SCREENING [code = HEPATITIS C SCREENING] [facility] 1990-01-14 00:00:00 HEPATITIS C SCREENING [code = HEPATITIS C SCREENING] [facility] 1990-01-14 00:00:00 HEPATITIS C SCREENING [code = HEPATITIS C SCREENING] [facility] 1990-01-14 00:00:00 HEPATITIS C SCREENING [code = HEPATITIS C SCREENING] [facility] 1990-01-14 00:00:00 HEPATITIS C SCREENING [code = HEPATITIS C SCREENING] [facility] 1990-01-14 00:00:00 HEPATITIS C SCREENING [code = HEPATITIS C SCREENING] [facility] 1990-01-14 00:00:00 HEPATITIS C SCREENING [code = HEPATITIS C SCREENING] [facility] 1990-01-14 00:00:00 HEPATITIS C SCREENING [code = HEPATITIS C SCREENING] [facility] 1990-01-14 00:00:00 HEPATITIS C SCREENING [code = HEPATITIS C SCREENING] [facility] 1990-01-14 00:00:00 HEPATITIS C SCREENING [code = HEPATITIS C SCREENING] [facility] 1990-01-14 00:00:00 HEPATITIS C SCREENING [code = HEPATITIS C SCREENING] [facility] 1990-01-14 00:00:00 HEPATITIS C SCREENING [code = HEPATITIS C SCREENING] [facility] 1990-01-14 00:00:00 HEPATITIS C SCREENING [code = HEPATITIS C SCREENING] [facility] 1990-01-14 00:00:00 HEPATITIS C SCREENING [code = HEPATITIS C SCREENING] [facility] 1990-01-14 00:00:00 HEPATITIS C SCREENING [code = HEPATITIS C SCREENING] [facility] 1990-01-14 00:00:00 HEPATITIS C SCREENING [code = HEPATITIS C SCREENING] [facility] 1990-01-14 00:00:00 HEPATITIS C SCREENING [code = HEPATITIS C SCREENING] [facility] 1990-01-14 00:00:00 HEPATITIS C SCREENING [code = HEPATITIS C SCREENING] [facility] 1990-01-14 00:00:00 HEPATITIS C SCREENING [code = HEPATITIS C SCREENING] [facility] 1990-01-14 00:00:00 HEPATITIS C SCREENING [code = HEPATITIS C SCREENING] [facility] 1990-01-14 00:00:00 HEPATITIS C SCREENING [code = HEPATITIS C SCREENING] [facility] 1990-01-14 00:00:00 HEPATITIS C SCREENING [code = HEPATITIS C SCREENING] [facility] 1990-01-14 00:00:00 HEPATITIS C SCREENING [code = HEPATITIS C SCREENING] [facility] 1990-01-14 00:00:00 HEPATITIS C SCREENING [code = HEPATITIS C SCREENING] [facility] 1990-01-14 00:00:00 HEPATITIS C SCREENING [code = HEPATITIS C SCREENING] [facility] 1990-01-14 00:00:00 HEPATITIS C SCREENING [code = HEPATITIS C SCREENING] [facility] 1990-01-14 00:00:00 HEPATITIS C SCREENING [code = HEPATITIS C SCREENING] [facility] 1990-01-14 00:00:00 HEPATITIS C SCREENING [code = HEPATITIS C SCREENING] [facility] 1990-01-14 00:00:00 HEPATITIS C SCREENING [code = HEPATITIS C SCREENING] [facility] 1990-01-14 00:00:00 HEPATITIS C SCREENING [code = HEPATITIS C SCREENING] [facility] 1990-01-14 00:00:00 HEPATITIS C SCREENING [code = HEPATITIS C SCREENING] [facility] 1990-01-14 00:00:00 HEPATITIS C SCREENING [code = HEPATITIS C SCREENING] [facility] 1990-01-14 00:00:00 HEPATITIS C SCREENING [code = HEPATITIS C SCREENING] [facility] 1990-01-14 00:00:00 HEPATITIS C SCREENING [code = HEPATITIS C SCREENING] [facility] 1990-01-14 00:00:00 HEPATITIS C SCREENING [code = HEPATITIS C SCREENING] [facility] 1990-01-14 00:00:00 HEPATITIS C SCREENING [code = HEPATITIS C SCREENING] [facility] 1990-01-14 00:00:00 HEPATITIS C SCREENING [code = HEPATITIS C SCREENING] [facility] 1990-01-14 00:00:00 HEPATITIS C SCREENING [code = HEPATITIS C SCREENING] [facility] 1990-01-14 00:00:00 HEPATITIS C SCREENING [code = HEPATITIS C SCREENING] [facility] 1990-01-14 00:00:00 HEPATITIS C SCREENING [code = HEPATITIS C SCREENING] [facility] 1990-01-14 00:00:00 HEPATITIS C SCREENING [code = HEPATITIS C SCREENING] [facility] 1990-01-14 00:00:00 HEPATITIS C SCREENING [code = HEPATITIS C SCREENING] [facility] 1990-01-14 00:00:00 HEPATITIS C SCREENING [code = HEPATITIS C SCREENING] [facility] 1990-01-14 00:00:00 HEPATITIS C SCREENING [code = HEPATITIS C SCREENING] [facility] 1990-01-14 00:00:00 HEPATITIS C SCREENING [code = HEPATITIS C SCREENING] [facility] 1987-01-14 00:00:00 Human immunodeficiency virus screening (procedure) [code = [id number]] [facility] 1987-01-14 00:00:00 Human immunodeficiency virus screening (procedure) [code = [id number]] [facility] 1984 00:00:00 Tobacco Cessation Counseling and Screening (12+) [code = Tobacco Cessation Counseling and Screening (12+)] [facility] 1984 00:00:00 Tobacco Cessation Counseling and Screening (12+) [code = Tobacco Cessation Counseling and Screening (12+)] [facility] Scheduled Test 1984 00:00:00 Tobacco Cessation Counseling and Screening (12+) [code = Tobacco Cessation Counseling and Screening (12+)] [facility] Scheduled Test 1984 00:00:00 Tobacco Cessation Counseling and Screening (12+) [code = Tobacco Cessation Counseling and Screening (12+)] [facility] Scheduled Test 1984 00:00:00 Tobacco Cessation Counseling and Screening (12+) [code = Tobacco Cessation Counseling and Screening (12+)] [facility] Scheduled Test 1984 00:00:00 Tobacco Cessation Counseling and Screening (12+) [code = Tobacco Cessation Counseling and Screening (12+)] [facility] 1984 00:00:00 Tobacco Cessation Counseling and Screening (12+) [code = Tobacco Cessation Counseling and Screening (12+)] [facility] Test 1984 00:00:00 Tobacco Cessation Counseling and Screening (12+) [code = Tobacco Cessation Counseling and Screening (12+)] [facility] Test 1984 00:00:00 Tobacco Cessation Counseling and Screening (12+) [code = Tobacco Cessation Counseling and Screening (12+)] [facility] 1984 00:00:00 Tobacco Cessation Counseling and Screening (12+) [code = Tobacco Cessation Counseling and Screening (12+)] [facility] Test 1984 00:00:00 Tobacco Cessation Counseling and Screening (12+) [code = Tobacco Cessation Counseling and Screening (12+)] [facility] Test 1984 00:00:00 Tobacco Cessation Counseling and Screening (12+) [code = Tobacco Cessation Counseling and Screening (12+)] [facility] 1984 00:00:00 Tobacco Cessation Counseling and Screening (12+) [code = Tobacco Cessation Counseling and Screening (12+)] [facility] Test 1984 00:00:00 Tobacco Cessation Counseling and Screening (12+) [code = Tobacco Cessation Counseling and Screening (12+)] [facility] Scheduled Test 1984 00:00:00 Tobacco Cessation Counseling and Screening (12+) [code = Tobacco Cessation Counseling and Screening (12+)] [facility] Scheduled Test 1984 00:00:00 Tobacco Cessation Counseling and Screening (12+) [code = Tobacco Cessation Counseling and Screening (12+)] [facility] Test 1984 00:00:00 Tobacco Cessation Counseling and Screening (12+) [code = Tobacco Cessation Counseling and Screening (12+)] [facility] Scheduled Test 1984 00:00:00 Tobacco Cessation Counseling and Screening (12+) [code = Tobacco Cessation Counseling and Screening (12+)] [facility] Test 1984 00:00:00 Tobacco Cessation Counseling and Screening (12+) [code = Tobacco Cessation Counseling and Screening (12+)] [facility] Test 1984 00:00:00 Tobacco Cessation Counseling and Screening (12+) [code = Tobacco Cessation Counseling and Screening (12+)] [facility] 1984 00:00:00 Tobacco Cessation Counseling and Screening (12+) [code = Tobacco Cessation Counseling and Screening (12+)] [facility] Test 1984 00:00:00 Tobacco Cessation Counseling and Screening (12+) [code = Tobacco Cessation Counseling and Screening (12+)] [facility] 1984 00:00:00 Tobacco Cessation Counseling and Screening (12+) [code = Tobacco Cessation Counseling and Screening (12+)] [facility] Test 1972 00:00:00 Screening for malignant neoplasm of breast (procedure) [code = [id number]] [facility] Test 1972 00:00:00 CT Colonography (combo) [code = CT Colonography (combo)] [facility] 1972 00:00:00 Screening for malignant neoplasm of colon (procedure) [code = 589794934] [facility] 1972 00:00:00 Screening for malignant neoplasm of colon (procedure) [code = 919600341] [facility] Test 1972 00:00:00 Screening for malignant neoplasm of colon (procedure) [code = 651112489] [facility] Test 1972 00:00:00 Screening for malignant neoplasm of colon (procedure) [code = 145528653] [facility] Test 1972 00:00:00 Sigmoidoscopy [code = Sigmoidoscopy] [facility] 1972 00:00:00 Screening for malignant neoplasm of breast (procedure) [code = 103930757] [facility] Test 1972 00:00:00 CT Colonography (combo) [code = CT Colonography (combo)] [facility] 1972 00:00:00 Screening for malignant neoplasm of colon (procedure) [code = 908229175] [facility] 1972 00:00:00 Screening for malignant neoplasm of colon (procedure) [code = 229598390] [facility] Test 1972 00:00:00 Screening for malignant neoplasm of colon (procedure) [code = 440899031] [facility] Test 1972 00:00:00 Screening for malignant neoplasm of colon (procedure) [code = 035675674] [facility] 1972 00:00:00 Sigmoidoscopy [code = Sigmoidoscopy] [facility] 1972 00:00:00 Screening for malignant neoplasm of breast (procedure) [code = 418705191] [facility] Test 1972 00:00:00 CT Colonography (combo) [code = CT Colonography (combo)] [facility] 1972 00:00:00 Screening for malignant neoplasm of colon (procedure) [code = 137320586] [facility] 1972 00:00:00 Screening for malignant neoplasm of colon (procedure) [code = 543938252] [facility] 1972 00:00:00 Screening for malignant neoplasm of colon (procedure) [code = 836939576] [facility] Test 1972 00:00:00 Screening for malignant neoplasm of colon (procedure) [code = 484873052] [facility] Test 1972 00:00:00 Sigmoidoscopy [code = Sigmoidoscopy] [facility] 1972 00:00:00 Screening for malignant neoplasm of breast (procedure) [code = 836421049] [facility] Test 1972 00:00:00 CT Colonography (combo) [code = CT Colonography (combo)] [facility] 1972 00:00:00 Screening for malignant neoplasm of colon (procedure) [code = 052617067] [facility] Test 1972 00:00:00 Screening for malignant neoplasm of colon (procedure) [code = 872106997] [facility] Test 1972 00:00:00 Screening for malignant neoplasm of colon (procedure) [code = 801619533] [facility] Test 1972 00:00:00 Screening for malignant neoplasm of colon (procedure) [code = 263240131] [facility] Test 1972 00:00:00 Sigmoidoscopy [code = Sigmoidoscopy] [facility] 1972 00:00:00 Screening for malignant neoplasm of breast (procedure) [code = 197120048] [facility] Test 1972 00:00:00 CT Colonography (combo) [code = CT Colonography (combo)] [facility] 1972 00:00:00 Screening for malignant neoplasm of colon (procedure) [code = 605975096] [facility] 1972 00:00:00 Screening for malignant neoplasm of colon (procedure) [code = 382607278] [facility] Test 1972 00:00:00 Screening for malignant neoplasm of colon (procedure) [code = 970978993] [facility] Test 1972 00:00:00 Screening for malignant neoplasm of colon (procedure) [code = 040345808] [facility] Test 1972 00:00:00 Sigmoidoscopy [code = Sigmoidoscopy] [facility] 1972 00:00:00 Screening for malignant neoplasm of breast (procedure) [code = 234354559] [facility] Test 1972 00:00:00 CT Colonography (combo) [code = CT Colonography (combo)] [facility] Test 1972 00:00:00 Screening for malignant neoplasm of colon (procedure) [code = 288598748] [facility] 1972 00:00:00 Screening for malignant neoplasm of colon (procedure) [code = 052756748] [facility] Test 1972 00:00:00 Screening for malignant neoplasm of colon (procedure) [code = 344003821] [facility] Test 1972 00:00:00 Screening for malignant neoplasm of colon (procedure) [code = 487539697] [facility] Test 1972 00:00:00 Sigmoidoscopy [code = Sigmoidoscopy] [facility] Test 1972 00:00:00 Screening for malignant neoplasm of breast (procedure) [code = 838535892] [facility] Test 1972 00:00:00 CT Colonography (combo) [code = CT Colonography (combo)] [facility] Test 1972 00:00:00 Screening for malignant neoplasm of colon (procedure) [code = 148031796] [facility] Test 1972 00:00:00 Screening for malignant neoplasm of colon (procedure) [code = 126607397] [facility] Test 1972 00:00:00 Screening for malignant neoplasm of colon (procedure) [code = 574624945] [facility] Test 1972 00:00:00 Screening for malignant neoplasm of colon (procedure) [code = 686728256] [facility] Test 1972 00:00:00 Sigmoidoscopy [code = Sigmoidoscopy] [facility] Test 1972 00:00:00 Screening for malignant neoplasm of breast (procedure) [code = 050850789] [facility] Test 1972 00:00:00 CT Colonography (combo) [code = CT Colonography (combo)] [facility] Test 1972 00:00:00 Screening for malignant neoplasm of colon (procedure) [code = 696351430] [facility] Test 1972 00:00:00 Screening for malignant neoplasm of colon (procedure) [code = 962540466] [facility] Test 1972 00:00:00 Screening for malignant neoplasm of colon (procedure) [code = 586561544] [facility] Test 1972 00:00:00 Screening for malignant neoplasm of colon (procedure) [code = 829443199] [facility] Test 1972 00:00:00 Sigmoidoscopy [code = Sigmoidoscopy] [facility] Test 1972 00:00:00 Screening for malignant neoplasm of breast (procedure) [code = 171945243] [facility] Test 1972 00:00:00 CT Colonography (combo) [code = CT Colonography (combo)] [facility] Scheduled Test 1972 00:00:00 Screening for malignant neoplasm of colon (procedure) [code = [id number]] [facility] Future Scheduled Test 1972 00:00:00 Screening for malignant neoplasm of colon (procedure) [code = 284839924] [facility] Future Scheduled Test 1972 00:00:00 Screening for malignant neoplasm of colon (procedure) [code = 761600220] [facility] Future Scheduled Test 1972 00:00:00 Screening for malignant neoplasm of colon (procedure) [code = 690055170] [facility] Future Scheduled Test 1972 00:00:00 Sigmoidoscopy [code = Sigmoidoscopy] [facility] Future Scheduled Test 1972 00:00:00 Screening for malignant neoplasm of breast (procedure) [code = 456833612] [facility] Future Scheduled Test 1972 00:00:00 CT Colonography (combo) [code = CT Colonography (combo)] [facility] Future Scheduled Test 1972 00:00:00 Screening for malignant neoplasm of colon (procedure) [code = 402328660] [facility] Future Scheduled Test 1972 00:00:00 Screening for malignant neoplasm of colon (procedure) [code = 879414202] [facility] Future Scheduled Test 1972 00:00:00 Screening for malignant neoplasm of colon (procedure) [code = 543499436] [facility] Future Scheduled Test 1972 00:00:00 Screening for malignant neoplasm of colon (procedure) [code = 877627463] [facility] Future Scheduled Test 1972 00:00:00 Sigmoidoscopy [code = Sigmoidoscopy] [facility] Future Scheduled Test 1972 00:00:00 Screening for malignant neoplasm of breast (procedure) [code = 433772617] [facility] Future Scheduled Test 1972 00:00:00 CT Colonography (combo) [code = CT Colonography (combo)] [facility] Future Scheduled Test 1972 00:00:00 Screening for malignant neoplasm of colon (procedure) [code = 999440742] [facility] Future Scheduled Test 1972 00:00:00 Screening for malignant neoplasm of colon (procedure) [code = 184577358] [facility] Future Scheduled Test 1972 00:00:00 Screening for malignant neoplasm of colon (procedure) [code = 572802161] [facility] Future Scheduled Test 1972 00:00:00 Screening for malignant neoplasm of colon (procedure) [code = 219179242] [facility] Future Scheduled Test 1972 00:00:00 Sigmoidoscopy [code = Sigmoidoscopy] [facility] Future Scheduled Test 1972 00:00:00 Screening for malignant neoplasm of breast (procedure) [code = 986691981] [facility] Future Scheduled Test 1972 00:00:00 CT Colonography (combo) [code = CT Colonography (combo)] [facility] Future Scheduled Test 1972 00:00:00 Screening for malignant neoplasm of colon (procedure) [code = 089756371] [facility] Future Scheduled Test 1972 00:00:00 Screening for malignant neoplasm of colon (procedure) [code = 293271090] [facility] Future Scheduled Test 1972 00:00:00 Screening for malignant neoplasm of colon (procedure) [code = 131707347] [facility] Future Scheduled Test 1972 00:00:00 Screening for malignant neoplasm of colon (procedure) [code = 857577764] [facility] Future Scheduled Test 1972 00:00:00 Sigmoidoscopy [code = Sigmoidoscopy] [facility] Future Scheduled Test 1972 00:00:00 Screening for malignant neoplasm of breast (procedure) [code = 247137533] [facility] Future Scheduled Test 1972 00:00:00 CT Colonography (combo) [code = CT Colonography (combo)] [facility] Future Scheduled Test 1972 00:00:00 Screening for malignant neoplasm of colon (procedure) [code = 709648320] [facility] Future Scheduled Test 1972 00:00:00 Screening for malignant neoplasm of colon (procedure) [code = 682449290] [facility] Future Scheduled Test 1972 00:00:00 Screening for malignant neoplasm of colon (procedure) [code = 271791442] [facility] Future Scheduled Test 1972 00:00:00 Screening for malignant neoplasm of colon (procedure) [code = 314993074] [facility] Future Scheduled Test 1972 00:00:00 Sigmoidoscopy [code = Sigmoidoscopy] [facility] Future Scheduled Test 1972 00:00:00 Screening for malignant neoplasm of breast (procedure) [code = 648876103] [facility] Future Scheduled Test 1972 00:00:00 CT Colonography (combo) [code = CT Colonography (combo)] [facility] Future Scheduled Test 1972 00:00:00 Screening for malignant neoplasm of colon (procedure) [code = 255097487] [facility] Future Scheduled Test 1972 00:00:00 Screening for malignant neoplasm of colon (procedure) [code = 663903299] [facility] Future Scheduled Test 1972 00:00:00 Screening for malignant neoplasm of colon (procedure) [code = 063303370] [facility] Future Scheduled Test 1972 00:00:00 Screening for malignant neoplasm of colon (procedure) [code = 160165380] [facility] Future Scheduled Test 1972 00:00:00 Sigmoidoscopy [code = Sigmoidoscopy] [facility] Future Scheduled Test 1972 00:00:00 Screening for malignant neoplasm of breast (procedure) [code = 760122669] [facility] Future Scheduled Test 1972 00:00:00 CT Colonography (combo) [code = CT Colonography (combo)] [facility] Future Scheduled Test 1972 00:00:00 Screening for malignant neoplasm of colon (procedure) [code = 445254458] [facility] Future Scheduled Test 1972 00:00:00 Screening for malignant neoplasm of colon (procedure) [code = 358867149] [facility] Future Scheduled Test 1972 00:00:00 Screening for malignant neoplasm of colon (procedure) [code = 531009865] [facility] Future Scheduled Test 1972 00:00:00 Screening for malignant neoplasm of colon (procedure) [code = 557982202] [facility] Future Scheduled Test 1972 00:00:00 Sigmoidoscopy [code = Sigmoidoscopy] [facility] Future Scheduled Test 1972 00:00:00 Screening for malignant neoplasm of breast (procedure) [code = 140825118] [facility] Future Scheduled Test 1972 00:00:00 CT Colonography (combo) [code = CT Colonography (combo)] [facility] Future Scheduled Test 1972 00:00:00 Screening for malignant neoplasm of colon (procedure) [code = 646758458] [facility] Future Scheduled Test 1972 00:00:00 Screening for malignant neoplasm of colon (procedure) [code = 141088635] [facility] Future Scheduled Test 1972 00:00:00 Screening for malignant neoplasm of colon (procedure) [code = 270562329] [facility] Future Scheduled Test 1972 00:00:00 Screening for malignant neoplasm of colon (procedure) [code = 878775168] [facility] Future Scheduled Test 1972 00:00:00 Sigmoidoscopy [code = Sigmoidoscopy] [facility] Future Scheduled Test 1972 00:00:00 Screening for malignant neoplasm of breast (procedure) [code = 009737182] [facility] Future Scheduled Test 1972 00:00:00 CT Colonography (combo) [code = CT Colonography (combo)] [facility] Future Scheduled Test 1972 00:00:00 Screening for malignant neoplasm of colon (procedure) [code = 546511180] [facility] Future Scheduled Test 1972 00:00:00 Screening for malignant neoplasm of colon (procedure) [code = 257853971] [facility] Future Scheduled Test 1972 00:00:00 Screening for malignant neoplasm of colon (procedure) [code = 729179380] [facility] Future Scheduled Test 1972 00:00:00 Screening for malignant neoplasm of colon (procedure) [code = 237532120] [facility] Future Scheduled Test 1972 00:00:00 Sigmoidoscopy [code = Sigmoidoscopy] [facility] Future Scheduled Test 1972 00:00:00 Screening for malignant neoplasm of breast (procedure) [code = 872793654] [facility] Future Scheduled Test 1972 00:00:00 CT Colonography (combo) [code = CT Colonography (combo)] [facility] Future Scheduled Test 1972 00:00:00 Screening for malignant neoplasm of breast (procedure) [code = 789790398] [facility] Future Scheduled Test 1972 00:00:00 CT Colonography (combo) [code = CT Colonography (combo)] [facility] Future Scheduled Test 1972 00:00:00 Screening for malignant neoplasm of colon (procedure) [code = 048093435] [facility] Future Scheduled Test 1972 00:00:00 Screening for malignant neoplasm of colon (procedure) [code = 725085170] [facility] Future Scheduled Test 1972 00:00:00 Screening for malignant neoplasm of colon (procedure) [code = 669282543] [facility] Future Scheduled Test 1972 00:00:00 Screening for malignant neoplasm of colon (procedure) [code = 858324839] [facility] Future Scheduled Test 1972 00:00:00 Sigmoidoscopy [code = Sigmoidoscopy] [facility] Future Scheduled Test 1972 00:00:00 Screening for malignant neoplasm of colon (procedure) [code = 997808918] [facility] Future Scheduled Test 1972 00:00:00 Screening for malignant neoplasm of colon (procedure) [code = 817162075] [facility] Future Scheduled Test 1972 00:00:00 Screening for malignant neoplasm of colon (procedure) [code = 110480518] [facility] Future Scheduled Test 1972 00:00:00 Screening for malignant neoplasm of colon (procedure) [code = 611810642] [facility] Future Scheduled Test 1972 00:00:00 Sigmoidoscopy [code = Sigmoidoscopy] [facility] Future Scheduled Test 1972 00:00:00 Screening for malignant neoplasm of breast (procedure) [code = 909381478] [facility] Future Scheduled Test 1972 00:00:00 CT Colonography (combo) [code = CT Colonography (combo)] [facility] Future Scheduled Test 1972 00:00:00 Screening for malignant neoplasm of colon (procedure) [code = 533619688] [facility] Future Scheduled Test 1972 00:00:00 Screening for malignant neoplasm of colon (procedure) [code = 721396744] [facility] Future Scheduled Test 1972 00:00:00 Screening for malignant neoplasm of colon (procedure) [code = 027039377] [facility] Future Scheduled Test 1972 00:00:00 Screening for malignant neoplasm of colon (procedure) [code = 173924272] [facility] Future Scheduled Test 1972 00:00:00 Sigmoidoscopy [code = Sigmoidoscopy] [facility] Future Scheduled Test 1972 00:00:00 Screening for malignant neoplasm of breast (procedure) [code = 171119343] [facility] Future Scheduled Test 1972 00:00:00 CT Colonography (combo) [code = CT Colonography (combo)] [facility] Future Scheduled Test 1972 00:00:00 Screening for malignant neoplasm of colon (procedure) [code = 527861781] [facility] Future Scheduled Test 1972 00:00:00 Screening for malignant neoplasm of colon (procedure) [code = 995591286] [facility] Future Scheduled Test 1972 00:00:00 Screening for malignant neoplasm of colon (procedure) [code = 778063420] [facility] Future Scheduled Test 1972 00:00:00 Screening for malignant neoplasm of colon (procedure) [code = 305825703] [facility] Future Scheduled Test 1972 00:00:00 Sigmoidoscopy [code = Sigmoidoscopy] [facility] Future Scheduled Test 1972 00:00:00 Screening for malignant neoplasm of breast (procedure) [code = 674855394] [facility] Future Scheduled Test 1972 00:00:00 CT Colonography (combo) [code = CT Colonography (combo)] [facility] Future Scheduled Test 1972 00:00:00 Screening for malignant neoplasm of colon (procedure) [code = 057522837] [facility] Future Scheduled Test 1972 00:00:00 Screening for malignant neoplasm of colon (procedure) [code = 113882375] [facility] Future Scheduled Test 1972 00:00:00 Screening for malignant neoplasm of colon (procedure) [code = 678753261] [facility] Future Scheduled Test 1972 00:00:00 Screening for malignant neoplasm of colon (procedure) [code = 009891917] [facility] Future Scheduled Test 1972 00:00:00 Sigmoidoscopy [code = Sigmoidoscopy] [facility] Future Scheduled Test 1972 00:00:00 Screening for malignant neoplasm of breast (procedure) [code = 984935158] [facility] Future Scheduled Test 1972 00:00:00 CT Colonography (combo) [code = CT Colonography (combo)] [facility] Future Scheduled Test 1972 00:00:00 Screening for malignant neoplasm of colon (procedure) [code = 130751844] [facility] Future Scheduled Test 1972 00:00:00 Screening for malignant neoplasm of colon (procedure) [code = 512202440] [facility] Future Scheduled Test 1972 00:00:00 Screening for malignant neoplasm of colon (procedure) [code = 367413428] [facility] Future Scheduled Test 1972 00:00:00 Screening for malignant neoplasm of colon (procedure) [code = 607056993] [facility] Future Scheduled Test 1972 00:00:00 Sigmoidoscopy [code = Sigmoidoscopy] [facility] Future Scheduled Test 1972 00:00:00 Screening for malignant neoplasm of breast (procedure) [code = 428363141] [facility] Future Scheduled Test 1972 00:00:00 CT Colonography (combo) [code = CT Colonography (combo)] [facility] Future Scheduled Test 1972 00:00:00 Screening for malignant neoplasm of colon (procedure) [code = 750176278] [facility] Future Scheduled Test 1972 00:00:00 Screening for malignant neoplasm of colon (procedure) [code = 865892118] [facility] Future Scheduled Test 1972 00:00:00 Screening for malignant neoplasm of colon (procedure) [code = 853884909] [facility] Future Scheduled Test 1972 00:00:00 Screening for malignant neoplasm of colon (procedure) [code = 575668562] [facility] Future Scheduled Test 1972 00:00:00 Sigmoidoscopy [code = Sigmoidoscopy] [facility] Future Scheduled Test 1972 00:00:00 Screening for malignant neoplasm of breast (procedure) [code = 828060261] [facility] Future Scheduled Test 1972 00:00:00 CT Colonography (combo) [code = CT Colonography (combo)] [facility] Future Scheduled Test 1972 00:00:00 Screening for malignant neoplasm of colon (procedure) [code = 047271273] [facility] Future Scheduled Test 1972 00:00:00 Screening for malignant neoplasm of colon (procedure) [code = 054004168] [facility] Future Scheduled Test 1972 00:00:00 Screening for malignant neoplasm of colon (procedure) [code = 255414724] [facility] Future Scheduled Test 1972 00:00:00 Screening for malignant neoplasm of colon (procedure) [code = 394340166] [facility] Future Scheduled Test 1972 00:00:00 Sigmoidoscopy [code = Sigmoidoscopy] [facility] Future Scheduled Test 1972 00:00:00 Screening for malignant neoplasm of breast (procedure) [code = 160869999] [facility] Future Scheduled Test 1972 00:00:00 CT Colonography (combo) [code = CT Colonography (combo)] [facility] Future Scheduled Test 1972 00:00:00 Screening for malignant neoplasm of colon (procedure) [code = 732768228] [facility] Future Scheduled Test 1972 00:00:00 Screening for malignant neoplasm of colon (procedure) [code = 571744235] [facility] Future Scheduled Test 1972 00:00:00 Screening for malignant neoplasm of colon (procedure) [code = 582944782] [facility] Future Scheduled Test 1972 00:00:00 Screening for malignant neoplasm of colon (procedure) [code = 792193688] [facility] Future Scheduled Test 1972 00:00:00 Screening for malignant neoplasm of breast (procedure) [code = 342637794] [facility] Future Scheduled Test 1972 00:00:00 CT Colonography (combo) [code = CT Colonography (combo)] [facility] Future Scheduled Test 1972 00:00:00 Sigmoidoscopy [code = Sigmoidoscopy] [facility] Future Scheduled Test 1972 00:00:00 Screening for malignant neoplasm of colon (procedure) [code = 477032854] [facility] Future Scheduled Test 1972 00:00:00 Screening for malignant neoplasm of colon (procedure) [code = 304860504] [facility] Future Scheduled Test 1972 00:00:00 Screening for malignant neoplasm of colon (procedure) [code = 632015075] [facility] Future Scheduled Test 1972 00:00:00 Screening for malignant neoplasm of colon (procedure) [code = 038578022] [facility] Future Scheduled Test 1972 00:00:00 Sigmoidoscopy [code = Sigmoidoscopy] [facility] Future Scheduled Test 1972 00:00:00 Screening for malignant neoplasm of breast (procedure) [code = 647660585] [facility] Future Scheduled Test 1972 00:00:00 CT Colonography (combo) [code = CT Colonography (combo)] [facility] Future Scheduled Test 1972 00:00:00 Screening for malignant neoplasm of colon (procedure) [code = 788602905] [facility] Future Scheduled Test 1972 00:00:00 Screening for malignant neoplasm of colon (procedure) [code = 780063555] [facility] Future Scheduled Test 1972 00:00:00 Screening for malignant neoplasm of colon (procedure) [code = 737136232] [facility] Future Scheduled Test 1972 00:00:00 Screening for malignant neoplasm of colon (procedure) [code = 596208108] [facility] Future Scheduled Test 1972 00:00:00 Sigmoidoscopy [code = Sigmoidoscopy] [facility] Future Scheduled Test 1972 00:00:00 Screening for malignant neoplasm of breast (procedure) [code = 145996483] [facility] Future Scheduled Test 1972 00:00:00 CT Colonography (combo) [code = CT Colonography (combo)] [facility] Future Scheduled Test 1972 00:00:00 Screening for malignant neoplasm of colon (procedure) [code = 533375718] [facility] Future Scheduled Test 1972 00:00:00 Screening for malignant neoplasm of colon (procedure) [code = 352334956] [facility] Future Scheduled Test 1972 00:00:00 Screening for malignant neoplasm of colon (procedure) [code = 200890708] [facility] Future Scheduled Test 1972 00:00:00 Screening for malignant neoplasm of colon (procedure) [code = 264102029] [facility] Future Scheduled Test 1972 00:00:00 Sigmoidoscopy [code = Sigmoidoscopy] [facility] Future Scheduled Test 1972 00:00:00 Screening for malignant neoplasm of breast (procedure) [code = 302271768] [facility] Future Scheduled Test 1972 00:00:00 CT Colonography (combo) [code = CT Colonography (combo)] [facility] Future Scheduled Test 1972 00:00:00 Screening for malignant neoplasm of colon (procedure) [code = 146079487] [facility] Future Scheduled Test 1972 00:00:00 Screening for malignant neoplasm of colon (procedure) [code = 293915438] [facility] Future Scheduled Test 1972 00:00:00 Screening for malignant neoplasm of colon (procedure) [code = 792406860] [facility] Future Scheduled Test 1972 00:00:00 Screening for malignant neoplasm of colon (procedure) [code = 302305660] [facility] Future Scheduled Test 1972 00:00:00 Sigmoidoscopy [code = Sigmoidoscopy] [facility] Future Scheduled Test 1972 00:00:00 Screening for malignant neoplasm of breast (procedure) [code = 915198278] [facility] Future Scheduled Test 1972 00:00:00 CT Colonography (combo) [code = CT Colonography (combo)] [facility] Future Scheduled Test 1972 00:00:00 Screening for malignant neoplasm of colon (procedure) [code = 206945843] [facility] Future Scheduled Test 1972 00:00:00 Screening for malignant neoplasm of colon (procedure) [code = 073575267] [facility] Future Scheduled Test 1972 00:00:00 Screening for malignant neoplasm of colon (procedure) [code = 726606766] [facility] Future Scheduled Test 1972 00:00:00 Screening for malignant neoplasm of colon (procedure) [code = 459491498] [facility] Future Scheduled Test 1972 00:00:00 Sigmoidoscopy [code = Sigmoidoscopy] [facility] Future Scheduled Test 1972 00:00:00 Screening for malignant neoplasm of breast (procedure) [code = 718235576] [facility] Future Scheduled Test 1972 00:00:00 CT Colonography (combo) [code = CT Colonography (combo)] [facility] Future Scheduled Test 1972 00:00:00 Screening for malignant neoplasm of colon (procedure) [code = 334574463] [facility] Future Scheduled Test 1972 00:00:00 Screening for malignant neoplasm of colon (procedure) [code = 358088315] [facility] Future Scheduled Test 1972 00:00:00 Screening for malignant neoplasm of colon (procedure) [code = 842714213] [facility] Future Scheduled Test 1972 00:00:00 Screening for malignant neoplasm of colon (procedure) [code = 563271387] [facility] Future Scheduled Test 1972 00:00:00 Sigmoidoscopy [code = Sigmoidoscopy] [facility] Future Scheduled Test 1972 00:00:00 Screening for malignant neoplasm of breast (procedure) [code = 462930372] [facility] Future Scheduled Test 1972 00:00:00 CT Colonography (combo) [code = CT Colonography (combo)] [facility] Future Scheduled Test 1972 00:00:00 Screening for malignant neoplasm of colon (procedure) [code = 578716584] [facility] Future Scheduled Test 1972 00:00:00 Screening for malignant neoplasm of colon (procedure) [code = 039107253] [facility] Future Scheduled Test 1972 00:00:00 Screening for malignant neoplasm of breast (procedure) [code = 272729332] [facility] Future Scheduled Test 1972 00:00:00 Screening for malignant neoplasm of colon (procedure) [code = 897784038] [facility] Future Scheduled Test 1972 00:00:00 CT Colonography (combo) [code = CT Colonography (combo)] [facility] Future Scheduled Test 1972 00:00:00 Screening for malignant neoplasm of colon (procedure) [code = 566067189] [facility] Future Scheduled Test 1972 00:00:00 Screening for malignant neoplasm of colon (procedure) [code = 184920647] [facility] Future Scheduled Test 1972 00:00:00 Screening for malignant neoplasm of colon (procedure) [code = 043489156] [facility] Future Scheduled Test 1972 00:00:00 Screening for malignant neoplasm of colon (procedure) [code = 921510055] [facility] Future Scheduled Test 1972 00:00:00 Sigmoidoscopy [code = Sigmoidoscopy] [facility] Future Scheduled Test 1972 00:00:00 Screening for malignant neoplasm of colon (procedure) [code = 382539771] [facility] Future Scheduled Test 1972 00:00:00 Sigmoidoscopy [code = Sigmoidoscopy] [facility] Future Scheduled Test 1972 00:00:00 Screening for malignant neoplasm of breast (procedure) [code = 459041661] [facility] Future Scheduled Test 1972 00:00:00 CT Colonography (combo) [code = CT Colonography (combo)] [facility] Future Scheduled Test 1972 00:00:00 Screening for malignant neoplasm of colon (procedure) [code = 227128987] [facility] Future Scheduled Test 1972 00:00:00 Screening for malignant neoplasm of colon (procedure) [code = 720003020] [facility] Future Scheduled Test 1972 00:00:00 Screening for malignant neoplasm of colon (procedure) [code = 217145757] [facility] Future Scheduled Test 1972 00:00:00 Screening for malignant neoplasm of colon (procedure) [code = 848058146] [facility] Future Scheduled Test 1972 00:00:00 Sigmoidoscopy [code = Sigmoidoscopy] [facility] Future Scheduled Test 1972 00:00:00 Screening for malignant neoplasm of breast (procedure) [code = 336695926] [facility] Future Scheduled Test 1972 00:00:00 CT Colonography (combo) [code = CT Colonography (combo)] [facility] Future Scheduled Test 1972 00:00:00 Screening for malignant neoplasm of colon (procedure) [code = 428143733] [facility] Future Scheduled Test 1972 00:00:00 Screening for malignant neoplasm of colon (procedure) [code = 123237092] [facility] Future Scheduled Test 1972 00:00:00 Screening for malignant neoplasm of colon (procedure) [code = 720676145] [facility] Future Scheduled Test 1972 00:00:00 Screening for malignant neoplasm of colon (procedure) [code = 460855065] [facility] Future Scheduled Test 1972 00:00:00 Sigmoidoscopy [code = Sigmoidoscopy] [facility] Future Scheduled Test 1972 00:00:00 Screening for malignant neoplasm of breast (procedure) [code = 668604229] [facility] Future Scheduled Test 1972 00:00:00 CT Colonography (combo) [code = CT Colonography (combo)] [facility] Future Scheduled Test 1972 00:00:00 Screening for malignant neoplasm of colon (procedure) [code = 974157545] [facility] Future Scheduled Test 1972 00:00:00 Screening for malignant neoplasm of colon (procedure) [code = 526454462] [facility] Future Scheduled Test 1972 00:00:00 Screening for malignant neoplasm of colon (procedure) [code = 678649655] [facility] Future Scheduled Test 1972 00:00:00 Screening for malignant neoplasm of colon (procedure) [code = 942248522] [facility] Future Scheduled Test 1972 00:00:00 Sigmoidoscopy [code = Sigmoidoscopy] [facility] Future Scheduled Test 1972 00:00:00 Screening for malignant neoplasm of breast (procedure) [code = 977036255] [facility] Future Scheduled Test 1972 00:00:00 CT Colonography (combo) [code = CT Colonography (combo)] [facility] Future Scheduled Test 1972 00:00:00 Screening for malignant neoplasm of colon (procedure) [code = 174128264] [facility] Future Scheduled Test 1972 00:00:00 Screening for malignant neoplasm of colon (procedure) [code = 654166998] [facility] Future Scheduled Test 1972 00:00:00 Screening for malignant neoplasm of colon (procedure) [code = 572387098] [facility] Future Scheduled Test 1972 00:00:00 Screening for malignant neoplasm of colon (procedure) [code = 319530690] [facility] Future Scheduled Test 1972 00:00:00 Sigmoidoscopy [code = Sigmoidoscopy] [facility] Future Scheduled Test 1972 00:00:00 Screening for malignant neoplasm of breast (procedure) [code = 739286332] [facility] Future Scheduled Test 1972 00:00:00 CT Colonography (combo) [code = CT Colonography (combo)] [facility] Future Scheduled Test 1972 00:00:00 Screening for malignant neoplasm of colon (procedure) [code = 041666818] [facility] Future Scheduled Test 1972 00:00:00 Screening for malignant neoplasm of colon (procedure) [code = 884198480] [facility] Future Scheduled Test 1972 00:00:00 Screening for malignant neoplasm of colon (procedure) [code = 429719010] [facility] Future Scheduled Test 1972 00:00:00 Screening for malignant neoplasm of colon (procedure) [code = 366228618] [facility] Future Scheduled Test 1972 00:00:00 Sigmoidoscopy [code = Sigmoidoscopy] [facility] Future Scheduled Test 1972 00:00:00 Screening for malignant neoplasm of breast (procedure) [code = 019392325] [facility] Future Scheduled Test 1972 00:00:00 CT Colonography (combo) [code = CT Colonography (combo)] [facility] Future Scheduled Test 1972 00:00:00 Screening for malignant neoplasm of colon (procedure) [code = 690924267] [facility] Future Scheduled Test 1972 00:00:00 Screening for malignant neoplasm of colon (procedure) [code = 654706699] [facility] Future Scheduled Test 1972 00:00:00 Screening for malignant neoplasm of colon (procedure) [code = 574799135] [facility] Future Scheduled Test 1972 00:00:00 Screening for malignant neoplasm of colon (procedure) [code = 060148504] [facility] Future Scheduled Test 1972 00:00:00 Sigmoidoscopy [code = Sigmoidoscopy] [facility] Future Scheduled Test 1972 00:00:00 Screening for malignant neoplasm of breast (procedure) [code = 577080099] [facility] Future Scheduled Test 1972 00:00:00 CT Colonography (combo) [code = CT Colonography (combo)] [facility] Future Scheduled Test 1972 00:00:00 Screening for malignant neoplasm of colon (procedure) [code = 234653920] [facility] Future Scheduled Test 1972 00:00:00 Screening for malignant neoplasm of colon (procedure) [code = 836071908] [facility] Future Scheduled Test 1972 00:00:00 Screening for malignant neoplasm of colon (procedure) [code = 797902632] [facility] Future Scheduled Test 1972 00:00:00 Screening for malignant neoplasm of colon (procedure) [code = 861311811] [facility] Future Scheduled Test 1972 00:00:00 Sigmoidoscopy [code = Sigmoidoscopy] [facility] Future Scheduled Test 1972 00:00:00 Screening for malignant neoplasm of breast (procedure) [code = 299102411] [facility] Future Scheduled Test 1972 00:00:00 CT Colonography (combo) [code = CT Colonography (combo)] [facility] Future Scheduled Test 1972 00:00:00 Screening for malignant neoplasm of colon (procedure) [code = 967094606] [facility] Future Scheduled Test 1972 00:00:00 Screening for malignant neoplasm of colon (procedure) [code = 664298316] [facility] Future Scheduled Test 1972 00:00:00 Screening for malignant neoplasm of colon (procedure) [code = 216714302] [facility] Future Scheduled Test 1972 00:00:00 Screening for malignant neoplasm of colon (procedure) [code = 921917303] [facility] Future Scheduled Test 1972 00:00:00 Sigmoidoscopy [code = Sigmoidoscopy] [facility] Future Scheduled Test 1972 00:00:00 Screening for malignant neoplasm of breast (procedure) [code = 672007424] [facility] Future Scheduled Test 1972 00:00:00 CT Colonography (combo) [code = CT Colonography (combo)] [facility] Future Scheduled Test 1972 00:00:00 Screening for malignant neoplasm of colon (procedure) [code = 603139805] [facility] Future Scheduled Test 1972 00:00:00 Screening for malignant neoplasm of colon (procedure) [code = 723747279] [facility] Future Scheduled Test 1972 00:00:00 Screening for malignant neoplasm of colon (procedure) [code = 560934595] [facility] Future Scheduled Test 1972 00:00:00 Screening for malignant neoplasm of colon (procedure) [code = 163778350] [facility] Future Scheduled Test 1972 00:00:00 Sigmoidoscopy [code = Sigmoidoscopy] [facility] Future Scheduled Test 1972 00:00:00 Screening for malignant neoplasm of breast (procedure) [code = 770452465] [facility] Future Scheduled Test 1972 00:00:00 CT Colonography (combo) [code = CT Colonography (combo)] [facility] Future Scheduled Test 1972 00:00:00 Screening for malignant neoplasm of colon (procedure) [code = 078145919] [facility] Future Scheduled Test 1972 00:00:00 Screening for malignant neoplasm of colon (procedure) [code = 271303185] [facility] Future Scheduled Test 1972 00:00:00 Screening for malignant neoplasm of colon (procedure) [code = 045882238] [facility] Future Scheduled Test 1972 00:00:00 Screening for malignant neoplasm of colon (procedure) [code = 467730665] [facility] Future Scheduled Test 1972 00:00:00 Sigmoidoscopy [code = Sigmoidoscopy] [facility] Future Scheduled Test 1972 00:00:00 Screening for malignant neoplasm of breast (procedure) [code = 218572699] [facility] Future Scheduled Test 1972 00:00:00 CT Colonography (combo) [code = CT Colonography (combo)] [facility] Future Scheduled Test 1972 00:00:00 Screening for malignant neoplasm of colon (procedure) [code = 027744954] [facility] Future Scheduled Test 1972 00:00:00 Screening for malignant neoplasm of breast (procedure) [code = 977032257] [facility] Future Scheduled Test 1972 00:00:00 CT Colonography (combo) [code = CT Colonography (combo)] [facility] Scheduled Test 1972 00:00:00 Screening for malignant neoplasm of colon (procedure) [code = 875125832] [facility] Future Scheduled Test 1972 00:00:00 Screening for malignant neoplasm of colon (procedure) [code = 715389378] [facility] Future Scheduled Test 1972 00:00:00 Screening for malignant neoplasm of colon (procedure) [code = 091985526] [facility] Future Scheduled Test 1972 00:00:00 Screening for malignant neoplasm of colon (procedure) [code = 374666425] [facility] Future Scheduled Test 1972 00:00:00 Sigmoidoscopy [code = Sigmoidoscopy] [facility] Future Scheduled Test 1972 00:00:00 Screening for malignant neoplasm of colon (procedure) [code = 046830700] [facility] Future Scheduled Test 1972 00:00:00 Screening for malignant neoplasm of colon (procedure) [code = 430493702] [facility] Future Scheduled Test 1972 00:00:00 Screening for malignant neoplasm of colon (procedure) [code = 542741164] [facility] Future Scheduled Test 1972 00:00:00 Sigmoidoscopy [code = Sigmoidoscopy] [facility] Future Scheduled Test 1972 00:00:00 Screening for malignant neoplasm of breast (procedure) [code = 062442175] [facility] Future Scheduled Test 1972 00:00:00 CT Colonography (combo) [code = CT Colonography (combo)] [facility] Future Scheduled Test 1972 00:00:00 Screening for malignant neoplasm of colon (procedure) [code = 534391473] [facility] Future Scheduled Test 1972 00:00:00 Screening for malignant neoplasm of colon (procedure) [code = 371127229] [facility] Future Scheduled Test 1972 00:00:00 Screening for malignant neoplasm of colon (procedure) [code = 317466106] [facility] Future Scheduled Test 1972 00:00:00 Screening for malignant neoplasm of colon (procedure) [code = 150888725] [facility] Future Scheduled Test 1972 00:00:00 Sigmoidoscopy [code = Sigmoidoscopy] [facility] Future Scheduled Test 1972 00:00:00 Screening for malignant neoplasm of breast (procedure) [code = 259786286] [facility] Future Scheduled Test 1972 00:00:00 CT Colonography (combo) [code = CT Colonography (combo)] [facility] Future Scheduled Test 1972 00:00:00 Screening for malignant neoplasm of colon (procedure) [code = 048561857] [facility] Future Scheduled Test 1972 00:00:00 Screening for malignant neoplasm of colon (procedure) [code = 962837083] [facility] Future Scheduled Test 1972 00:00:00 Screening for malignant neoplasm of colon (procedure) [code = 516472903] [facility] Future Scheduled Test 1972 00:00:00 Screening for malignant neoplasm of colon (procedure) [code = 758235261] [facility] Future Scheduled Test 1972 00:00:00 Sigmoidoscopy [code = Sigmoidoscopy] [facility] Future Scheduled Test 1972 00:00:00 Screening for malignant neoplasm of breast (procedure) [code = 433201080] [facility] Future Scheduled Test 1972 00:00:00 CT Colonography (combo) [code = CT Colonography (combo)] [facility] Future Scheduled Test 1972 00:00:00 Screening for malignant neoplasm of colon (procedure) [code = 966703173] [facility] Future Scheduled Test 1972 00:00:00 Screening for malignant neoplasm of colon (procedure) [code = 663927248] [facility] Future Scheduled Test 1972 00:00:00 Screening for malignant neoplasm of colon (procedure) [code = 730638140] [facility] Future Scheduled Test 1972 00:00:00 Screening for malignant neoplasm of colon (procedure) [code = 970471829] [facility] Future Scheduled Test 1972 00:00:00 Sigmoidoscopy [code = Sigmoidoscopy] [facility] Future Scheduled Test 1972 00:00:00 Screening for malignant neoplasm of breast (procedure) [code = 340219665] [facility] Future Scheduled Test 1972 00:00:00 CT Colonography (combo) [code = CT Colonography (combo)] [facility] Future Scheduled Test 1972 00:00:00 Screening for malignant neoplasm of colon (procedure) [code = 751801768] [facility] Future Scheduled Test 1972 00:00:00 Screening for malignant neoplasm of colon (procedure) [code = 995597827] [facility] Future Scheduled Test 1972 00:00:00 Screening for malignant neoplasm of colon (procedure) [code = 551095243] [facility] Future Scheduled Test 1972 00:00:00 Screening for malignant neoplasm of colon (procedure) [code = 891219392] [facility] Future Scheduled Test 1972 00:00:00 Sigmoidoscopy [code = Sigmoidoscopy] [facility] Future Scheduled Test 1972 00:00:00 Screening for malignant neoplasm of breast (procedure) [code = 450081407] [facility] Future Scheduled Test 1972 00:00:00 CT Colonography (combo) [code = CT Colonography (combo)] [facility] Future Scheduled Test 1972 00:00:00 Screening for malignant neoplasm of colon (procedure) [code = 353741186] [facility] Future Scheduled Test 1972 00:00:00 Screening for malignant neoplasm of colon (procedure) [code = 122447531] [facility] Future Scheduled Test 1972 00:00:00 Screening for malignant neoplasm of colon (procedure) [code = 297117795] [facility] Future Scheduled Test 1972 00:00:00 Screening for malignant neoplasm of colon (procedure) [code = 237179273] [facility] Future Scheduled Test 1972 00:00:00 Screening for malignant neoplasm of breast (procedure) [code = 054874657] [facility] Future Scheduled Test 1972 00:00:00 Sigmoidoscopy [code = Sigmoidoscopy] [facility] Future Scheduled Test 1972 00:00:00 CT Colonography (combo) [code = CT Colonography (combo)] [facility] Future Scheduled Test 1972 00:00:00 Screening for malignant neoplasm of colon (procedure) [code = 858628137] [facility] Future Scheduled Test 1972 00:00:00 Screening for malignant neoplasm of breast (procedure) [code = 581760949] [facility] Future Scheduled Test 1972 00:00:00 CT Colonography (combo) [code = CT Colonography (combo)] [facility] Future Scheduled Test 1972 00:00:00 Screening for malignant neoplasm of colon (procedure) [code = 184110232] [facility] Future Scheduled Test 1972 00:00:00 Screening for malignant neoplasm of colon (procedure) [code = 884003351] [facility] Future Scheduled Test 1972 00:00:00 Screening for malignant neoplasm of colon (procedure) [code = 356339125] [facility] Scheduled Test 1972 00:00:00 Screening for malignant neoplasm of colon (procedure) [code = 016897324] [facility] Future Scheduled Test 1972 00:00:00 Screening for malignant neoplasm of colon (procedure) [code = 277742448] [facility] Scheduled Test 1972 00:00:00 Sigmoidoscopy [code = Sigmoidoscopy] [facility] Scheduled Test 1972 00:00:00 Screening for malignant neoplasm of colon (procedure) [code = 489090036] [facility] Scheduled Test 1972 00:00:00 Screening for malignant neoplasm of colon (procedure) [code = 975457317] [facility] Scheduled Test 1972 00:00:00 Screening for malignant neoplasm of breast (procedure) [code = 508809348] [facility] Future Scheduled Test 1972 00:00:00 CT Colonography (combo) [code = CT Colonography (combo)] [facility] Future Scheduled Test 1972 00:00:00 Screening for malignant neoplasm of colon (procedure) [code = 732732229] [facility] Future Scheduled Test 1972 00:00:00 Screening for malignant neoplasm of colon (procedure) [code = 889874918] [facility] Scheduled Test 1972 00:00:00 Sigmoidoscopy [code = Sigmoidoscopy] [facility] Future Scheduled Test 1972 00:00:00 Screening for malignant neoplasm of colon (procedure) [code = 603298663] [facility] Future Scheduled Test 1972 00:00:00 Screening for malignant neoplasm of colon (procedure) [code = 978566400] [facility] Scheduled Test 1972 00:00:00 Sigmoidoscopy [code = Sigmoidoscopy] [facility] Future Scheduled Test 1972 00:00:00 Screening for malignant neoplasm of breast (procedure) [code = 877804144] [facility] Scheduled Test 1972 00:00:00 CT Colonography (combo) [code = CT Colonography (combo)] [facility] Scheduled Test 1972 00:00:00 Screening for malignant neoplasm of colon (procedure) [code = 791292912] [facility] Future Scheduled Test 1972 00:00:00 Screening for malignant neoplasm of colon (procedure) [code = 042051529] [facility] Scheduled Test 1972 00:00:00 Screening for malignant neoplasm of colon (procedure) [code = 992709759] [facility] Scheduled Test 1972 00:00:00 Screening for malignant neoplasm of colon (procedure) [code = 751491597] [facility] Scheduled Test 1972 00:00:00 Sigmoidoscopy [code = Sigmoidoscopy] [facility] Future Scheduled Test 1972 00:00:00 Screening for malignant neoplasm of breast (procedure) [code = 929796597] [facility] Future Scheduled Test 1972 00:00:00 CT Colonography (combo) [code = CT Colonography (combo)] [facility] Scheduled Test 1972 00:00:00 Screening for malignant neoplasm of colon (procedure) [code = 974844956] [facility] Scheduled Test 1972 00:00:00 Screening for malignant neoplasm of colon (procedure) [code = 119039752] [facility] Future Scheduled Test 1972 00:00:00 Screening for malignant neoplasm of colon (procedure) [code = 826584991] [facility] Scheduled Test 1972 00:00:00 Screening for malignant neoplasm of colon (procedure) [code = 386476694] [facility] Scheduled Test 1972 00:00:00 Sigmoidoscopy [code = Sigmoidoscopy] [facility] Scheduled Test 1972 00:00:00 Screening for malignant neoplasm of breast (procedure) [code = 875386542] [facility] Scheduled Test 1972 00:00:00 CT Colonography (combo) [code = CT Colonography (combo)] [facility] Scheduled Test 1972 00:00:00 Screening for malignant neoplasm of colon (procedure) [code = 339187531] [facility] Scheduled Test 1972 00:00:00 Screening for malignant neoplasm of colon (procedure) [code = 731945842] [facility] Scheduled Test 1972 00:00:00 Screening for malignant neoplasm of colon (procedure) [code = 341584251] [facility] Scheduled Test 1972 00:00:00 Screening for malignant neoplasm of colon (procedure) [code = 070389049] [facility] Scheduled Test 1972 00:00:00 Sigmoidoscopy [code = Sigmoidoscopy] [facility] Scheduled Test 1972 00:00:00 Screening for malignant neoplasm of breast (procedure) [code = 852676163] [facility] Scheduled Test 1972 00:00:00 CT Colonography (combo) [code = CT Colonography (combo)] [facility] Scheduled Test 1972 00:00:00 Screening for malignant neoplasm of colon (procedure) [code = 536320347] [facility] Scheduled Test 1972 00:00:00 Screening for malignant neoplasm of colon (procedure) [code = 730109359] [facility] Scheduled Test 1972 00:00:00 Screening for malignant neoplasm of colon (procedure) [code = 142071960] [facility] Scheduled Test 1972 00:00:00 Screening for malignant neoplasm of colon (procedure) [code = 455102538] [facility] Scheduled Test 1972 00:00:00 Sigmoidoscopy [code = Sigmoidoscopy] [facility] Scheduled Test 1972 00:00:00 Screening for malignant neoplasm of breast (procedure) [code = 607781670] [facility] Scheduled Test 1972 00:00:00 CT Colonography (combo) [code = CT Colonography (combo)] [facility] Future Scheduled Test 1972 00:00:00 Screening for malignant neoplasm of colon (procedure) [code = 412754069] [facility] Future Scheduled Test 1972 00:00:00 Screening for malignant neoplasm of colon (procedure) [code = 338991450] [facility] Future Scheduled Test 1972 00:00:00 Screening for malignant neoplasm of colon (procedure) [code = 865707815] [facility] Scheduled Test 1972 00:00:00 Screening for malignant neoplasm of colon (procedure) [code = 185062799] [facility] Scheduled Test 1972 00:00:00 Sigmoidoscopy [code = Sigmoidoscopy] [facility] Scheduled Test 1972 00:00:00 Screening for malignant neoplasm of breast (procedure) [code = 031929537] [facility] Scheduled Test 1972 00:00:00 CT Colonography (combo) [code = CT Colonography (combo)] [facility] Scheduled Test 1972 00:00:00 Screening for malignant neoplasm of colon (procedure) [code = 686508614] [facility] Scheduled Test 1972 00:00:00 Screening for malignant neoplasm of colon (procedure) [code = 453264444] [facility] [facility] 1972 00:00:00 Screening for malignant neoplasm of colon (procedure) [code = 731122122] [facility] Scheduled Test 1972 00:00:00 Screening for malignant neoplasm of colon (procedure) [code = 029535898] [facility] Scheduled Test 1972 00:00:00 Sigmoidoscopy [code = Sigmoidoscopy] [facility] Scheduled Test 1972 00:00:00 Screening for malignant neoplasm of breast (procedure) [code = 387072094] [facility] Scheduled Test 1972 00:00:00 CT Colonography (combo) [code = CT Colonography (combo)] [facility] Scheduled Test 1972 00:00:00 Screening for malignant neoplasm of colon (procedure) [code = 174358941] [facility] Future Scheduled Test 1972 00:00:00 Screening for malignant neoplasm of colon (procedure) [code = 241554197] [facility] Future Scheduled Test 1972 00:00:00 Screening for malignant neoplasm of colon (procedure) [code = 038321706] [facility] Future Scheduled Test 1972 00:00:00 Screening for malignant neoplasm of colon (procedure) [code = 144781813] [facility] Future Scheduled Test 1972 00:00:00 Sigmoidoscopy [code = Sigmoidoscopy] [facility] Future Scheduled Test 1972 00:00:00 Screening for malignant neoplasm of breast (procedure) [code = 501088528] [facility] Future Scheduled Test 1972 00:00:00 CT Colonography (combo) [code = CT Colonography (combo)] [facility] Future Scheduled Test 1972 00:00:00 Screening for malignant neoplasm of colon (procedure) [code = 767572493] [facility] Future Scheduled Test 1972 00:00:00 Screening for malignant neoplasm of colon (procedure) [code = 811842024] [facility] Future Scheduled Test 1972 00:00:00 Screening for malignant neoplasm of colon (procedure) [code = 217538230] [facility] Future Scheduled Test 1972 00:00:00 Screening for malignant neoplasm of colon (procedure) [code = 127253311] [facility] Future Scheduled Test 1972 00:00:00 Sigmoidoscopy [code = Sigmoidoscopy] [facility] Future Scheduled Test 1972 00:00:00 Screening for malignant neoplasm of breast (procedure) [code = 186925433] [facility] Future Scheduled Test 1972 00:00:00 CT Colonography (combo) [code = CT Colonography (combo)] [facility] Future Scheduled Test 1972 00:00:00 Screening for malignant neoplasm of colon (procedure) [code = 032472649] [facility] Future Scheduled Test 1972 00:00:00 Screening for malignant neoplasm of colon (procedure) [code = 366533463] [facility] Future Scheduled Test 1972 00:00:00 Screening for malignant neoplasm of colon (procedure) [code = 662812831] [facility] Future Scheduled Test 1972 00:00:00 Screening for malignant neoplasm of colon (procedure) [code = 564470410] [facility] Future Scheduled Test 1972 00:00:00 Sigmoidoscopy [code = Sigmoidoscopy] [facility] Future Scheduled Test 1972 00:00:00 Screening for malignant neoplasm of breast (procedure) [code = 697609234] [facility] Future Scheduled Test 1972 00:00:00 CT Colonography (combo) [code = CT Colonography (combo)] [facility] Scheduled Test 1972 00:00:00 Screening for malignant neoplasm of colon (procedure) [code = 579706053] [facility] Future Scheduled Test 1972 00:00:00 Screening for malignant neoplasm of colon (procedure) [code = 070664560] [facility] Future Scheduled Test 1972 00:00:00 Screening for malignant neoplasm of colon (procedure) [code = 072736705] [facility] Future Scheduled Test 1972 00:00:00 Screening for malignant neoplasm of colon (procedure) [code = 356508360] [facility] Future Scheduled Test 1972 00:00:00 Sigmoidoscopy [code = Sigmoidoscopy] [facility] Future Scheduled Test 1972 00:00:00 Screening for malignant neoplasm of breast (procedure) [code = 101380131] [facility] Future Scheduled Test 1972 00:00:00 CT Colonography (combo) [code = CT Colonography (combo)] [facility] Scheduled Test 1972 00:00:00 Screening for malignant neoplasm of colon (procedure) [code = 829284376] [facility] Future Scheduled Test 1972 00:00:00 Screening for malignant neoplasm of colon (procedure) [code = 876365588] [facility] Future Scheduled Test 1972 00:00:00 Screening for malignant neoplasm of colon (procedure) [code = 846837099] [facility] Future Scheduled Test 1972 00:00:00 Screening for malignant neoplasm of colon (procedure) [code = 635924196] [facility] Future Scheduled Test 1972 00:00:00 Sigmoidoscopy [code = Sigmoidoscopy] [facility] Future Scheduled Test 1972 00:00:00 Screening for malignant neoplasm of breast (procedure) [code = 252247511] [facility] Future Scheduled Test 1972 00:00:00 CT Colonography (combo) [code = CT Colonography (combo)] [facility] Future Scheduled Test 1972 00:00:00 Screening for malignant neoplasm of colon (procedure) [code = 042522657] [facility] Future Scheduled Test 1972 00:00:00 Screening for malignant neoplasm of colon (procedure) [code = 130082582] [facility] Future Scheduled Test 1972 00:00:00 Screening for malignant neoplasm of colon (procedure) [code = 606839159] [facility] Future Scheduled Test 1972 00:00:00 Screening for malignant neoplasm of colon (procedure) [code = 941936884] [facility] Future Scheduled Test 1972 00:00:00 Sigmoidoscopy [code = Sigmoidoscopy] [facility] Future Scheduled Test 1972 00:00:00 Screening for malignant neoplasm of breast (procedure) [code = 976576653] [facility] Future Scheduled Test 1972 00:00:00 CT Colonography (combo) [code = CT Colonography (combo)] [facility] Future Scheduled Test 1972 00:00:00 Screening for malignant neoplasm of colon (procedure) [code = 071439009] [facility] Future Scheduled Test 1972 00:00:00 Screening for malignant neoplasm of colon (procedure) [code = 087369496] [facility] Future Scheduled Test 1972 00:00:00 Screening for malignant neoplasm of colon (procedure) [code = 480910045] [facility] Future Scheduled Test 1972 00:00:00 Screening for malignant neoplasm of colon (procedure) [code = 166389366] [facility] Future Scheduled Test 1972 00:00:00 Sigmoidoscopy [code = Sigmoidoscopy] [facility] Future Scheduled Test 1972 00:00:00 Screening for malignant neoplasm of breast (procedure) [code = 144251475] [facility] Future Scheduled Test 1972 00:00:00 CT Colonography (combo) [code = CT Colonography (combo)] [facility] Future Scheduled Test 1972 00:00:00 Screening for malignant neoplasm of colon (procedure) [code = 016639786] [facility] Future Scheduled Test 1972 00:00:00 Screening for malignant neoplasm of colon (procedure) [code = 904369684] [facility] Future Scheduled Test 1972 00:00:00 Screening for malignant neoplasm of colon (procedure) [code = 720864160] [facility] Future Scheduled Test 1972 00:00:00 Screening for malignant neoplasm of colon (procedure) [code = 096228023] [facility] Future Scheduled Test 1972 00:00:00 Sigmoidoscopy [code = Sigmoidoscopy] [facility] Future Scheduled Test 1972 00:00:00 Screening for malignant neoplasm of breast (procedure) [code = 868382720] [facility] Future Scheduled Test 1972 00:00:00 CT Colonography (combo) [code = CT Colonography (combo)] [facility] Future Scheduled Test 1972 00:00:00 Screening for malignant neoplasm of colon (procedure) [code = 678124274] [facility] Future Scheduled Test 1972 00:00:00 Screening for malignant neoplasm of colon (procedure) [code = 966871388] [facility] Future Scheduled Test 1972 00:00:00 Screening for malignant neoplasm of colon (procedure) [code = 205808573] [facility] Future Scheduled Test 1972 00:00:00 Screening for malignant neoplasm of colon (procedure) [code = 850366916] [facility] Future Scheduled Test 1972 00:00:00 Sigmoidoscopy [code = Sigmoidoscopy] [facility] Future Scheduled Test 1972 00:00:00 Screening for malignant neoplasm of breast (procedure) [code = 160991073] [facility] Future Scheduled Test 1972 00:00:00 CT Colonography (combo) [code = CT Colonography (combo)] [facility] Future Scheduled Test 1972 00:00:00 Screening for malignant neoplasm of colon (procedure) [code = 970433157] [facility] Future Scheduled Test 1972 00:00:00 Screening for malignant neoplasm of colon (procedure) [code = 077222298] [facility] Future Scheduled Test 1972 00:00:00 Screening for malignant neoplasm of colon (procedure) [code = 084715301] [facility] Future Scheduled Test 1972 00:00:00 Screening for malignant neoplasm of colon (procedure) [code = 043696032] [facility] Future Scheduled Test 1972 00:00:00 Sigmoidoscopy [code = Sigmoidoscopy] [facility] Goal Plan of Care Not e [code = 68554-3] Goal Plan of Care Not e [code = 73044-9] Goal Plan of Care Not e [code = 51347-3] Goal Plan of Care Not e [code = 54370-7] Goal Plan of Care Not e [code = 55669-1] Goal Plan of Care Not e [code = 20372-8] Goal Plan of Care Not e [code = 88463-8] Goal Plan of Care Not e [code = 14747-8] Goal Plan of Care Not e [code = 49472-9] Goal Plan of Care Not e [code = 16827-8] Goal Plan of Care Not e [code = 40749-2] Goal Plan of Care Not e [code = 58906-5] Goal Plan of Care Not e [code = 85054-2] Goal Plan of Care Not e [code = 64769-3] Goal Plan of Care Not e [code = 03861-0] Goal Plan of Care Not e [code = 10524-8] Goal Plan of Care Not e [code = 77247-5] Goal Plan of Care Not e [code = 75171-2] Goal Plan of Care Not e [code = 21027-6] Goal Plan of Care Not e [code = 90620-0] Goal Plan of Care Not e [code = 33090-6] Goal Plan of Care Not e [code = 96263-8] Goal Plan of Care Not e [code = 97623-1] Goal Plan of Care Not e [code = 35567-2] Goal Plan of Care Not e [code = 25580-4] Goal Plan of Care Not e [code = 52268-6] Goal Plan of Care Not e [code = 49467-6] Goal Plan of Care Not e [code = 61937-4] Goal Plan of Care Not e [code = 45407-9] Goal Plan of Care Not e [code = 97132-4] Goal Plan of Care Not e [code = 32050-7] Goal Plan of Care Not e [code = 88113-0] Goal Plan of Care Not e [code = 40112-0] Goal Plan of Care Not e [code = 66115-2] Goal Plan of Care Not e [code = 25000-8] Encounters Start Date/Time End Date/Time Encounter Type Admission Type [facility]ending [facility] Care Department Encounter ID Source 2023-09-07 10:11:03 Inpatient PANKAJ PARRISH [facility] [id number] [facility] 2023-09-05 10:08:27 Inpatient PANKAJ PARRISH [facility] [id number] [facility] 2023-09-05 10:05:12 [id number] 2023-09-04 04:51:30 Inpatient PANKAJ PARRISH [facility] [id number] [facility] 2023-09-04 04:14:55 Inpatient PANKAJ PARRISH [facility] [id number] [facility] 2023-09-04 03:08:45 [id number] 2023-09-04 02:36:28 [facility] [id number] [facility] 2023-06-16 09:32:36 [facility] [id number] [facility] 2023-06-16 09:32:09 Inpatient AYDEE DICKENS [facility] [id number] [facility] 2023-06-16 09:31:53 Inpatient AYDEE DICKENS [facility] [id number] [facility] 2023-06-14 07:46:02 Inpatient AYDEE DICKENS [facility] [id number] [facility] 2023-06-14 07:39:22 Inpatient AYDEE DICKENS [facility] [id number] [facility] 2023-06-14 06:38:38 Inpatient AYDEE DICKENS [facility] [id number] [facility] 2023-06-13 13:44:18 Inpatient CARA MURPHY [facility] [id number] [facility] 2023-06-13 11:45:24 Inpatient AYDEE DICKENS [facility] [id number] [facility] 2023-05-08 11:21:00 Outpatient ADAM BRANTLEY [facility] Surgery [id number] [facility] 2023-04-01 14:26:29 Inpatient ER THOMAS LOZOYA [facility] [id number] [facility] 2023-03-31 09:24:52 Inpatient ER MARIAH ALDRIDGE [facility] [id number] [facility] 2021-05-20 18:48:04 Emergency [facility] [id number] [facility] 2021-05-20 12:43:40 Emergency [facility] [id number] [facility] 2024-02-16 10:15:00 2024-02-16 10:15:00 Outpatient MORALES BALL [id number] [facility] 2023-11-26 14:15:00 2023-11-26 14:15:00 Outpatient AARON LEDESMA [id number] [facility] 2023-11-12 15:15:00 2023-11-12 15:15:00 Outpatient GUSTAVO DELANEY [id number] [facility] 2023-11-10 09:30:00 2023-11-10 09:30:00 Outpatient MYLA MIJARES [id number] [facility] 2023-11-09 00:00:00 2023-11-09 00:00:00 Outpatient GUSTAVO DELANEY [id number] [facility] 2023-11-07 17:51:00 2023-11-07 22:04:00 Emergency ER JUANY [facility] [id number] [facility] 2023-11-07 17:51:00 2023-11-07 22:04:00 emergency [facility] [id number] 2023-11-05 00:00:00 2023-11-05 00:00:00 Outpatient TIFFANY PUENTE [id number] [facility] 2023-11-03 00:00:00 2023-11-03 00:00:00 Outpatient CYNTHIA MTZ [id number] [facility] 2023-10-29 00:00:00 2023-10-29 00:00:00 Outpatient GUSTAVO DELANEY [id number] [facility] 2023-10-26 00:00:00 2023-10-26 00:00:00 Outpatient EFRA BABCOCK [id number] [facility] 2023-10-22 00:00:00 2023-10-22 00:00:00 Outpatient GUSTAVO DELANEY [id number] [facility] 2023-10-16 11:10:00 2023-10-16 11:10:00 Outpatient SIDDHARTH STANFORD [id number] [facility] 2023-10-15 00:00:00 2023-10-15 00:00:00 Outpatient MD CYNTHIA MARLEY [id number] [facility] 2023-10-15 00:00:00 2023-10-15 00:00:00 Outpatient SHY GUILLEN [id number] [facility] 2023-10-15 00:00:00 2023-10-15 00:00:00 Outpatient SHY GUILLEN [id number] [facility] 2023-10-06 10:45:00 2023-10-06 10:45:00 Outpatient SARAI JULES [id number] [facility] 2023-10-05 11:30:00 2023-10-05 11:30:00 Outpatient GUSTAVO DELANEY [id number] [facility] 2023-10-01 00:00:00 2023-10-01 00:00:00 Outpatient PREZASGUSTAVO CYNTHIA [id number] [facility] 2023-09-30 14:15:00 2023-09-30 14:15:00 Outpatient PREZASGUSTAVO CYNTHIA [id number] [facility] 2023-09-24 00:00:00 2023-09-24 00:00:00 Outpatient PREZASGUSTAVO CYNTHIA [id number] [facility] 2023-09-23 00:00:00 2023-09-23 00:00:00 Outpatient CINDI TIFFANY MTZ [id number] [facility] 2023-09-22 00:00:00 2023-09-22 00:00:00 Outpatient PREZASGUSTAVO CYNTHIA [id number] [facility] 2023-09-22 00:00:00 2023-09-22 00:00:00 Outpatient SHY GUILLEN CYNTHIA CYNTHIA [id number] [facility] 2023-09-16 00:00:00 2023-09-16 00:00:00 Outpatient PREZASGUSTAVO CYNTHIA [id number] [facility] 2023-09-16 00:00:00 2023-09-16 00:00:00 Outpatient PREZASGUSTAVO CYNTHIA [id number] [facility] 2023-09-16 00:00:00 2023-09-16 00:00:00 Outpatient PREZASGUSTAVO CYNTHIA [id number] [facility] 2023-09-14 00:00:00 2023-09-14 00:00:00 Outpatient SHY GUILLEN CYNTHIA MTZ [id number] [facility] 2023-09-14 00:00:00 2023-09-14 00:00:00 Outpatient SHY GUILLEN CYNHTIA MTZ [id number] [facility] 2023-09-11 11:00:00 2023-09-11 11:00:00 Outpatient YONATAN LORENZO [id number] [facility] 2023-09-09 00:00:00 2023-09-09 00:00:00 Outpatient CYNTHIA MTZ [id number] [facility]04 00:14:00 2023-09-08 10:51:00 Inpatient ER SELIN FERRER Neurosurger y [id number] [facility] 2023-09-04 00:14:00 2023-09-08 10:51:00 Hospital Encounter ER Nir Pankaj lCaros Maria Hoffman, Maria [facility] [id number] [facility] 2023-09-04 00:14:00 2023-09-08 10:51:00 Hospital Encounter Nir Pankaj Claros Maria Hoffman, Maria [facility] [id number] [facility] 2023-09-07 18:41:43 2023-09-07 18:41:43 Outpatient SELIN MANE [facility] [id number] [facility] 2023-09-03 20:52:00 2023-09-03 23:44:00 Emergency ER JUANY [facility] [id number] [facility] 2023-09-03 20:52:00 2023-09-03 23:44:00 emergency [facility] [id number] 2023-09-02 00:00:00 2023-09-02 00:00:00 Outpatient TIFFANY PUENTE [id number] [facility] 2023-09-01 15:30:00 2023-09-01 15:30:00 Outpatient DEMETRIUS TOBAR [id number] [facility] 2023-08-19 00:00:00 2023-08-19 00:00:00 [facility] [id number] [facility] 2023-08-13 00:00:00 2023-08-13 00:00:00 Orders Only Ketan Scruggs [facility] [id number] [facility] 2023-08-13 00:00:00 2023-08-13 00:00:00 Orders Only Ketan Scruggs [facility] [id number] [facility] 2023-08-12 13:49:00 2023-08-12 16:12:00 Emergency X BRIAN BRYAN RUST ERT [id number] [facility] 2023-08-12 13:49:00 2023-08-12 16:12:00 Emergency Brian Bryan [facility] [id number] [facility] 2023-06-13 03:43:00 2023-06-16 19:45:00 Inpatient ER AYDEE GO [facility] Internal Med [id number] [facility] 2023-06-13 03:43:00 2023-06-16 19:45:00 Hospital Encounter ER Cara Burgess Sahar [facility] [id number] [facility] 2023-06-13 03:43:00 2023-06-16 19:45:00 Hospital Encounter Cara Burgess Sahar [facility] [id number] [facility] 2023-06-15 00:00:00 2023-06-15 00:00:00 Orders Only System, Provider Not In [facility] [id number] [facility] 2023-06-15 00:00:00 2023-06-15 00:00:00 Orders Only System, Provider Not In [facility] [id number] [facility] 2023-06-13 16:30:06 2023-06-13 16:30:06 Outpatient EL AYDEE GO [facility] [id number] [facility] 2023-06-13 00:00:00 2023-06-13 00:00:[address] [facility] [id number] [facility] 2023-06-13 00:00:00 2023-06-13 00:00:[address] [facility] [id number] [facility] 2023-06-13 00:00:00 2023-06-13 00:00:[address] [facility] [id number] [facility] 2023-06-13 00:00:00 2023-06-13 00:00:[address] [facility] [id number] [facility] 2023-06-12 00:00:00 2023-06-12 00:00:[address] [facility] [id number] [facility] 2023-06-12 00:00:00 2023-06-12 00:00:[address] [facility] [id number] [facility] 2023-05-28 06:45:00 2023-06-04 17:36:00 Inpatient ADAM BRANTLEY [facility] Surgery [id number] [facility] 2023-05-28 06:45:00 2023-06-04 17:36:00 Hospital Encounter Adam Brantley [facility] [id number] [facility] 2023-05-28 06:45:00 2023-06-04 17:36:00 Hospital Encounter Adam Garcia [facility] [id number] [facility] 2023-06-01 09:10:00 2023-06-01 13:00:00 Anesthesia Event Harry Newsome Mujtaba Ahmad [facility] [id number] [facility] 2023-06-01 09:10:00 2023-06-01 13:00:00 Anesthesia Event Harry Newsome Mujtaba Ahmad [facility] [id number] [facility] 2023-06-01 09:00:00 2023-06-01 11:30:[address] [facility] [id number] [facility] 2023-06-01 09:00:00 2023-06-01 11:30:[address] [facility] [id number] [facility] 2023-06-01 09:47:57 2023-06-01 09:47:57 Outpatient ADAM BRANTLEY [facility] [id number] [facility] 2023-06-01 09:40:34 2023-06-01 09:40:34 Outpatient ADAM BRANTLEY [facility] [id number] [facility] 2023-05-31 09:25:55 2023-05-31 23:59:00 Inpatient ADAM BRANTLEY [facility] [id number] [facility] 2023-05-31 09:00:00 2023-05-31 23:59:00 Hospital Encounter Adam Garcia [facility] [id number] [facility] 2023-05-31 09:00:00 2023-05-31 23:59:00 Hospital Encounter Adam Garcia [facility] [id number] [facility] 2023-05-28 18:15:29 2023-05-28 18:15:29 Outpatient ADAM BRANTLEY [facility] [id number] [facility] 2023-05-28 08:30:00 2023-05-28 11:54:00 Anesthesia Event Yue Bui [facility] [id number] [facility] 2023-05-28 08:30:00 2023-05-28 11:54:00 Anesthesia Event Ramya, Yue Dumont [facility] [id number] [facility] 2023-05-28 11:41:14 2023-05-28 11:41:14 Outpatient ADAM BRANTLEY [facility] [id number] [facility] 2023-05-28 08:30:00 2023-05-28 11:00:[address] [facility] [id number] [facility] 2023-05-28 08:30:00 2023-05-28 11:00:[address] [facility] [id number] [facility] 2023-05-28 10:00:47 2023-05-28 10:00:47 Outpatient [facility]LEY [facility] [id number] [facility] 2023-05-28 00:00:00 2023-05-28 00:00:[address] [facility] [id number] [facility] 2023-05-28 00:00:00 2023-05-28 00:00:[address] [facility] [id number] [facility] 2023-05-26 09:00:00 2023-05-26 09:00:00 Hospital Encounter Adam Garcia [facility] [id number] [facility] 2023-05-26 09:00:00 2023-05-26 09:00:00 Hospital Encounter Adam Garcia [facility] [id number] [facility] 2023-05-26 00:00:00 2023-05-26 00:00:00 Outpatient [facility]AM [facility]LEY [facility] [id number] [facility] 2023-05-26 00:00:00 2023-05-26 00:00:00 Outpatient NICOLETTE [facility] [id number] [facility] 2023-05-26 00:00:00 2023-05-26 00:00:[address] [facility] [id number] [facility] 2023-05-26 00:00:00 2023-05-26 00:00:[address] [facility] [facility] [place] [id number] [facility] 2023-05-13 11:43:03 2023-05-13 11:43:03 Outpatient SFA BHARAT 1025 Adria Martínez 2023-05-12 00:00:00 2023-05-12 00:00:00 Orders Only Doni Garciaverna Joshi [facility] [id number] [facility] 2023-05-12 00:00:00 2023-05-12 00:00:00 Orders Only Adam Garcia [facility] [id number] [facility] 2023-05-08 14:11:21 2023-05-08 14:11:21 Outpatient [facility] 1020 Adria Martínez 2023-03-29 19:25:00 2023-04-02 20:48:00 Hospital Encounter ER Connie Davey, Mariah Lozoya, Thomas Louisemacho [facility] [id number] [facility] 2023-03-29 19:25:00 2023-04-02 20:48:00 Inpatient ER THOMAS LOZOYA [facility] [id number] [facility] 2023-03-29 19:25:00 2023-04-02 20:48:00 Hospital Encounter Connie Davey, Mariah Lozoya, [facility] [id number] [facility] 2023-03-31 08:32:56 2023-03-31 00:00:00 [facility] [id number] [facility] 2023-03-30 10:24:12 2023-03-30 23:59:00 Outpatient ER CONNIE DAVEY [facility] [id number] [facility] 2023-03-30 09:40:00 2023-03-30 23:59:00 Hospital Encounter Connie Davey [facility] [id number] [facility] 2023-03-30 09:40:00 2023-03-30 23:59:00 Hospital Encounter Connie Davey [facility] [id number] [facility] 2023-03-30 13:46:20 2023-03-30 13:46:20 Outpatient ER MARIAH ALDRIDGE SLERigoberto [facility] [id number] [facility] 2023-03-30 13:46:14 2023-03-30 13:46:14 Outpatient ER [facility] [id number] [facility] 2023-03-30 10:24:04 2023-03-30 10:24:04 Outpatient ER CONNIE DAVEY [facility] [id number] [facility] 2023-03-30 00:00:00 2023-03-30 00:00:[address] [facility] [id number] [facility] 2023-03-30 00:00:00 2023-03-30 00:00:[address] [facility] [id number] [facility] 2023-03-30 00:00:00 2023-03-30 00:00:[address] [facility] [id number] [facility] 2023-03-30 00:00:00 2023-03-30 00:00:[address] [facility] [id number] [facility] 2022-12-11 08:56:00 2022-12-11 15:29:00 Emergency X Alfonso ALVARADO RUST ERT [id number] [facility] 2022-12-11 08:56:00 2022-12-11 15:29:00 Emergency Alfonso Alvarado [facility] 1.2840.114 350.1.13.10 4.2.7.2.686 [id number] [facility] 2022-11-17 17:25:00 2022-11-18 01:19:00 Emergency X RITCHIE WARREN RUST ERT [id number] [facility] 2022-11-17 17:25:00 2022-11-18 01:19:00 Emergency Ritchie Warren [facility] 1.2840.114 350.1.13.10 4.2.7.2.686 [id number] [facility] 2022-08-28 00:00:00 2022-08-28 00:00:00 Patient Outreach Shy BeckmanCorbin RODRIGO BENAVIDES 1.2.840.114 350.1.13.10 4.2.7.2.686 [id number] [facility] 2022-08-20 00:00:00 2022-08-20 00:00:00 Patient Outreach Shy Beckman ANDREZCHRISTIAN 1.2.840.114 350.1.13.10 4.2.7.2.686 [id number] [facility] 2022-08-02 17:30:00 2022-08-03 14:29:00 Hospital Encounter Halima Guan Kinjal M Ibe, Chimkama Ngozi Cynthia [facility] [id number] [facility] 2022-08-02 17:30:00 2022-08-03 14:29:00 Outpatient ER PARRISH WHEATLEY [facility] Neurology [id number] [facility] 2022-08-03 00:00:00 2022-08-03 00:00:[address] [facility] [id number] [facility] 2022-08-02 00:00:00 2022-08-02 00:00:[address] [facility] [id number] [facility] 2022-07-31 11:42:00 2022-08-01 21:48:00 Inpatient X LORENZA LOWRY [facility] [id number] [facility] 2022-07-31 11:42:00 2022-08-01 21:48:00 Hospital Encounter Sav Rondon Yaman [facility] 1..840.114 350.1.13.10 4.2.7.2.686 [id number] [facility] 2022-08-01 00:00:00 2022-08-01 00:00:00 Transition of Care NicoleMaria Teresa pachecoJono MAGUIRECHRISTIAN 1.2.840.114 350.1.13.10 4.2.7.2.686 [id number] [facility] 2022-07-28 14:41:38 2022-07-28 14:41:38 Outpatient [facility] [id number] Adria Martínez 2022-07-28 00:00:00 2022-07-28 00:00:00 Outpatient Visit [id number] 2022-07-24 13:24:40 2022-07-24 13:24:40 Outpatient [facility] [id number] Adria Galan Mauricio 2022-05-23 14:51:01 2022-05-23 14:51:01 Outpatient [facility] 1104 Adria Martínez 2022-05-23 00:00:00 2022-05-23 00:00:00 Outpatient Visit [id number] 2022-05-04 20:22:00 2022-05-08 14:44:00 Outpatient [facility] [id number] [facility] 2022-05-04 20:22:00 2022-05-08 14:44:00 [facility] 1.840.114 350.1.13.10 4.2.7.2.686 [id number] [facility] 2022-04-13 13:06:00 2022-04-15 15:00:00 Inpatient X [facility] [id number] [facility] 2022-04-13 13:06:00 2022-04-15 15:00:00 Hospital Encounter Sapna Vargas [facility] 1..840.114 350.1.13.10 4.2.7.2.686 [id number] [facility] 2022-02-19 10:20:00 2022-02-19 10:30:00 Imm/Inj Visit Vaccine, ValenciaJose Toure [facility] 1.2.840.114 350.1.13.10 4.2.7.2.686 [id number] [facility] 2022-02-19 10:20:00 2022-02-19 10:20:00 Outpatient R JOSE PAK [facility] [id number] [facility] 2021-11-23 15:07:00 2021-11-23 17:03:00 Emergency NICHELLE BRADY RUST ERT [id number] [facility] 2021-11-23 15:07:00 2021-11-23 17:03:00 Emergency Sav Rondon Folusho [facility] 1.2840.114 350.1.13.10 4.2.7.2.686 [id number] [facility] 2021-11-21 09:40:00 2021-11-21 09:40:00 Outpatient R [facility] [id number] [facility] 2021-05-24 09:30:00 2021-05-24 09:30:00 Outpatient R JOSE PAK [facility] [id number] [facility] 2021-05-24 08:47:51 2021-05-24 08:57:51 Imm/Inj Visit Vaccine, Valencia Dangelo Pak [facility] 1..114 350.1.13.10 4.2.7.2.686 [id number] [facility] 2021-05-03 09:40:00 2021-05-03 09:59:35 Outpatient R PASHA, JOSE [facility] [id number] [facility] 2021-05-03 09:17:43 2021-05-03 09:59:35 Imm/Inj Visit Vaccine, Valencia Jose Santiago [facility] 1.2840.114 350.1.13.10 4.2.7.2.686 [id number] [facility] 2021-04-16 00:00:00 2021-04-16 00:00:00 Orders Only Doctor Unassigned, [place] [facility] 1.2.840.114 350.1.13.10 4.2.7.2.686 [id number] [facility] 2021-03-17 00:00:00 2021-03-17 00:00:00 Telephone Miky Nava [facility] 1.2840.114 350.1.13.10 4.2.7.2.686 [id number] [facility] 2021-03-16 20:08:00 2021-03-16 23:24:00 Emergency Fabrice Chakraborty [facility] 1.2840.114 350.1.13.10 4.2.7.2.686 [id number] [facility] 2021-03-14 18:59:34 2021-03-14 20:19:13 Urgent Care Lydia Desouza Unknown, Attending [facility] 1.2.114 350.1.13.10 4.2.7.2.686 [id number] [facility] 2021-03-14 19:00:00 2021-03-14 19:00:00 Outpatient R UNKNOWN, ATTENDING [facility] [id number] [facility] 2021-02-19 10:49:00 2021-02-19 14:48:00 Emergency Anali Monroy S [facility] 1.2840.114 350.1.13.10 4.2.7.2.686 [id number] [facility] 2019-03-09 00:00:00 2019-03-09 00:00:00 Yehuda Zimmerman [facility] 1.2.840.114 350.1.13.10 4.2.7.2.686 [id number] [facility] 2019-03-09 00:00:00 2019-03-09 00:00:00 Yehuda Zimmerman [facility] 1.2.840.114 350.1.13.10 4.2.7.2.686 [id number] Results Test Description Test Time Test Comments Results Result Co mments Source BLOOD [id number] 07:00:10* Test Item Value Reference Range Interpretation Comme nts CULTURE (BEAKER) (test code = 1095) No growth in 5 days XR KNEE 3 VIEWS [id number] 09:27:00 [facility] [...] Signed By: Maxim Sultana09/08/2023 09:29 CDTWorkstation Name: [id number] 08:53:50* Test Item Value Reference Range Interpretation Comme nts POC-Glucose Meter (test code = 1538) 101 mg/dL 70-110 : TESTED AT [address], [address]: Service Plumber/Survey Interviewer ID = [id number] for Umeh, Akumbu Lab Interpretation (test code = 42848-4) [facility] [id number] 08:53:50* Test Item Value Reference Range Interpretation Comme nts POC-Glucose Meter (test code = 1538) 101 mg/dL 70-110 : TESTED AT [address], [address]: Service Plumber/Survey Interviewer ID = [id number] for Umeh, Akumbu Lab Interpretation (test code = 90638-6) [facility] [id number] 08:53:50* Test Item Value Reference Range Interpretation Comme nts POC-Glucose Meter (test code = 1538) 101 mg/dL 70-110 : TESTED AT [address], [address]: Service Plumber/Survey Interviewer ID = [id number] for Umeh, Akumbu Lab Interpretation (test code = 87603-0) [facility] [id number] 08:53:50* Test Item Value Reference Range Interpretation Comme nts POC-Glucose Meter (test code = 1538) 101 mg/dL 70-110 : TESTED AT [address], [address]: Service Plumber/Survey Interviewer ID = [id number] for Umeh, Akumbu Lab Interpretation (test code = 70634-9) [facility] [id number] 08:53:50* Test Item Value Reference Range Interpretation Comme nts POC-Glucose Meter (test code = 1538) 101 mg/dL 70-110 : TESTED AT [address], [address]: Service Plumber/Survey Interviewer ID = [id number] for Umeh, Akumbu Lab Interpretation (test code = 56778-4) [facility] [id number] 08:53:50* Test Item Value Reference Range Interpretation Comme nts POC-Glucose Meter (test code = 1538) 101 mg/dL 70-110 : TESTED AT [address], [address]: Service Plumber/Survey Interviewer ID = [id number] for Umeh, Akumbu Lab Interpretation (test code = 51122-1) [facility] [id number] 08:53:50* Test Item Value Reference Range Interpretation Comme nts POC-Glucose Meter (test code = 1538) 101 mg/dL 70-110 : TESTED AT [address], [address]: Service Plumber/Survey Interviewer ID = [id number] for Umeh, Akumbu Lab Interpretation (test code = 01889-4) [facility] [id number] 08:53:50* Test Item Value Reference Range Interpretation Comme nts POC-Glucose Meter (test code = 1538) 101 mg/dL 70-110 : TESTED AT [address], [address]: Service Plumber/Survey Interviewer ID = [id number] for Umeh, Akumbu Lab Interpretation (test code = 14074-0) [facility] [id number] 08:53:50* Test Item Value Reference Range Interpretation Comme nts POC-Glucose Meter (test code = 1538) 101 mg/dL 70-110 : TESTED AT [address], [address]: Service Plumber/Survey Interviewer ID = [id number] for Umeh, Akumbu Lab Interpretation (test code = 33246-2) [facility] [id number] 08:53:50* Test Item Value Reference Range Interpretation Comme nts POC-Glucose Meter (test code = 1538) 101 mg/dL 70-110 : TESTED AT [address], [address]: Service Plumber/Survey Interviewer ID = [id number] for Umeh, Akumbu Lab Interpretation (test code = 90752-1) [facility] [id number] 08:53:50* Test Item Value Reference Range Interpretation Comme nts POC-Glucose Meter (test code = 1538) 101 mg/dL 70-110 : TESTED AT [address], [address]: Service Plumber/Survey Interviewer ID = [id number] for Umeh, Akumbu Lab Interpretation (test code = 57098-6) [facility] [id number] 08:53:50* Test Item Value Reference Range Interpretation Comme nts POC-Glucose Meter (test code = 1538) 101 mg/dL 70-110 : TESTED AT [address], [address]: Service Plumber/Survey Interviewer ID = [id number] for Umeh, Akumbu Lab Interpretation (test code = 23650-9) [facility] iwcvc7798-12-09 08:53:50* Test Item Value Reference Range Interpretation Comme nts POC-Glucose Meter (test code = 1538) 101 mg/dL 70-110 : TESTED AT [address], [address]: Service Plumber/Survey Interviewer ID = [id number] for Umeh, Akumbu Lab Interpretation (test code = 77439-6) [facility] [id number] 08:53:50* Test Item Value Reference Range Interpretation Comme nts POC-Glucose Meter (test code = 1538) 101 mg/dL 70-110 : TESTED AT [address], [address]: Service Plumber/Survey Interviewer ID = [id number] for Umeh, Akumbu Lab Interpretation (test code = 36441-2) [facility] [id number] 08:53:50* Test Item Value Reference Range Interpretation Comme nts POC-Glucose Meter (test code = 1538) 101 mg/dL 70-110 : TESTED AT [address], [address]: Service Plumber/Survey Interviewer ID = [id number] for Umeh, Akumbu Lab Interpretation (test code = 87898-4) [facility] [id number] 08:53:50* Test Item Value Reference Range Interpretation Comme nts POC-Glucose Meter (test code = 1538) 101 mg/dL 70-110 : TESTED AT [address], [address]: Service Plumber/Survey Interviewer ID = [id number] for Umeh, Akumbu Lab Interpretation (test code = 08939-2) [facility] [id number] 08:53:50* Test Item Value Reference Range Interpretation Comme nts POC-Glucose Meter (test code = 1538) 101 mg/dL 70-110 : TESTED AT [address], [address]: Service Plumber/Survey Interviewer ID = [id number] for Umeh, Akumbu Lab Interpretation (test code = 53202-8) [facility] [id number] 08:53:50* Test Item Value Reference Range Interpretation Comme nts POC-Glucose Meter (test code = 1538) 101 mg/dL 70-110 : TESTED AT [address], [address]: Service Plumber/Survey Interviewer ID = [id number] for Umeh, Akumbu Lab Interpretation (test code = 35981-3) [facility] [id number] 08:53:50* Test Item Value Reference Range Interpretation Comme nts POC-Glucose Meter (test code = 1538) 101 mg/dL 70-110 : TESTED AT [address], [address]: Service Plumber/Survey Interviewer ID = [id number] for Umeh, Akumbu Lab Interpretation (test code = 93201-5) Normal [facility]-GLUCOSE [id number] 08:53:50* Test Item Value Reference Range Interpretation Comme nts POC-GLUCOSE METER (BEAKER) (test code = 1538) 101 mg/dL 70-110 : TESTED AT [address], [address]: Service Plumber/Survey Interviewer ID = [id number] for Umeh, Akumbu BASIC METABOLIC [id number] 05:40:45* Test Item Value Reference Range Interpretation [...] GFR is not applicable for dialysis patients Service Plumber ID - [id number] 05:40:45* Test Item Value Reference Range Interpretation Comme nts MAGNESIUM (BEAKER) (test cod e = 627) 2.1 mg/dL 1.6-2.6 Service Plumber ID - [id number] 05:40:45* Test Item Value Reference Range Interpretation Comme nts PHOSPHORUS (BEAKER) (test co de = 604) 5.0 mg/dL 2.3-4.7 H Service Plumber ID - ADMINCBC W/PLT COUNT & AUTO [id number] 04:49:23* Test Item Value Reference Range Interpretation [...] code = 2801) 0.40 % 0.00-1.00 POCT-GLUCOSE [id number] 21:40:23* Test Item Value Reference Range Interpretation Comme nts POC-GLUCOSE METER (BEAKER) (test code = 1538) 144 mg/dL 70-110 H : TESTED AT [facility] [address] [facility], [address]: Service Plumber/Survey Interviewer ID = [id number] for Diana Baeza [id number] 04:05:54* Test Item Value Reference Range Interpretation Comme nts MAGNESIUM (BEAKER) (test code = 627) 2.0 mg/dL 1.6-2.6 Specimen sligh tly hemolyzed Service Plumber ID - MADELINE [id number] 04:05:54* Test Item Value Reference Range Interpretation Comme nts PHOSPHORUS (BEAKER) (test code = 604) 4.5 mg/dL 2.3-4.7 Specimen sligh tly hemolyzed Service Plumber GEOVANNA CORREA WBASIC METABOLIC [id number] 04:05:54* Test Item Value Reference Range Interpretation [...] GFR is not applicable for dialysis patients Service Plumber GEOVANNA CORREA WCBC W/PLT COUNT & AUTO [id number] 03:40:48* Test Item Value Reference Range Interpretation [...] code = 2801) 0.30 % 0.00-1.00 POCT-GLUCOSE [id number] 21:28:35* Test Item Value Reference Range Interpretation Comme nts POC-GLUCOSE METER (BEAKER) (test code = 1538) 127 mg/dL 70-110 H : TESTED AT [facility] [address] [facility], [address]: Service Plumber/Survey Interviewer ID = [id number] for Ryan Morin POCT-GLUCOSE [id number] 18:49:21* Test Item Value Reference Range Interpretation Comme nts POC-GLUCOSE METER (BEAKER) (test code = 1538) 122 mg/dL 70-110 H : TESTED AT [facility] [address] [facility], [address]: Service Plumber/Survey Interviewer ID = [id number] for Lauren Santillan POCT-GLUCOSE [id number] 13:27:27* Test Item Value Reference Range Interpretation Comme nts POC-GLUCOSE METER (BEAKER) (test code = 1538) 130 mg/dL 70-110 H : TESTED AT [facility] [address] [facility], [address]: Service Plumber/Survey Interviewer ID = [id number] for Lauren Santillan [id number] 09:09:14* Test Item Value Reference Range Interpretation Comme nts MAGNESIUM (BEAKER) (test cod e = 627) 2.2 mg/dL 1.6-2.6 [id number] 09:09:14* Test Item Value Reference Range Interpretation Comme nts PHOSPHORUS (BEAKER) (test co de = 604) 4.8 mg/dL 2.3-4.7 H BASIC METABOLIC [id number] 09:09:14* Test Item Value Reference Range Interpretation [...] is not applicable for dialysis patients POCT-GLUCOSE [id number] 08:33:30* Test Item Value Reference Range Interpretation Comme [facility] POC-GLUCOSE METER (BEAKER) (test code = 1538) 132 mg/dL 70-110 H : TESTED AT [facility] [address] [facility], [address]: Service Plumber/Survey Interviewer ID = [id number] for Lauren Santillan CBC W/PLT COUNT & AUTO [id number] 05:47:59* Test Item Value Reference Range Interpretation [...] code = 2801) 0.40 % 0.00-1.00 POCT-GLUCOSE [id number] 21:35:37* Test Item Value Reference Range Interpretation Comme nts POC-GLUCOSE METER (BEAKER) (test code = 1538) 129 mg/dL 70-110 H : TESTED AT [facility] [address] [facility], [address]: Service Plumber/Survey Interviewer ID = [id number] for Ryan Morin MR BRAIN WITH & WITHOUT IV [id number] 15:49:58 [facility] ESTELLE : 1970 [...] Signed By: Zeinab Dempsey09/05/2023 15:53 CDTWorkstation Name: [id number] METER 2023-09-05 08:34:25* Test Item Value Reference Range Interpretation Comme nts POC-GLUCOSE METER (BEAKER) (test code = 1538) 115 mg/dL 70-110 H : TESTED AT [facility] [address] [facility], [address]: Service Plumber/Survey Interviewer ID = [id number] for DOMINGA AMADOR BASIC METABOLIC [id number] 06:06:56* Test Item Value Reference Range Interpretation [...] GFR is not applicable for dialysis patients Service Plumber ID - [id number] 06:06:56* Test Item Value Reference Range Interpretation Comme nts MAGNESIUM (BEAKER) (test cod e = 627) 2.2 mg/dL 1.6-2.6 Service Plumber ID - [id number] 06:06:56* Test Item Value Reference Range Interpretation Comme nts PHOSPHORUS (BEAKER) (test co de = 604) 3.8 mg/dL 2.3-4.7 Service Plumber ID - ADMINCBC W/PLT COUNT & AUTO [id number] 05:29:32* Test Item Value Reference Range Interpretation [...] code = 2801) 0.50 % 0.00-1.00 POCT-GLUCOSE [id number] 04:55:18* Test Item Value Reference Range Interpretation Comme nts POC-GLUCOSE METER (BEAKER) (test code = 1538) 99 mg/dL 70-110 : TESTED AT [address], [address]: Service Plumber/Survey Interviewer ID = [id number] for Mikel, Kyahawn POCT-GLUCOSE [id number] 21:49:23* Test Item Value Reference Range Interpretation Comme nts POC-GLUCOSE METER (BEAKER) (test code = 1538) 124 mg/dL 70-110 H : TESTED AT [place] [id number] [facility], [address]: Service Plumber/Survey Interviewer ID = [id number] for Mikel, Reshawn POCT-GLUCOSE [id number] 15:55:53* Test Item Value Reference Range Interpretation Comme nts POC-GLUCOSE METER (BEAKER) (test code = 1538) 126 mg/dL 70-110 H : TESTED AT [address], [address]: Service Plumber/Survey Interviewer ID = [id number] for HemTramaine montgomery [id number] 12:37:56* Test Item Value Reference Range Interpretation Comme nts PROCALCITONIN (BEAKER) (test code = 3036) < ng/mL <0.05 SEPSIS RISK (ng/mL)Low: 0.05-0.50Intermediate: 0.51-2.00High: >=2.01SARS- CoV2/Influenza/RSV [id number] 12:18:09* Test Item Value Reference Range Interpretation Comments SARS-COV2/RT-PCR (test code = 77593-8) Negative Negative The SARS-CoV-2 target nucleic acids [...] provider. Influenza A RT-PCR (test code = 33925-2) Negative Negative The Flu A target nucleic acids are not detected in this specimen. Influenza B RT-PCR (test code = 60103-3) Negative Negative The Flu B target nucleic acids are not detected in this specimen. RSV by RT-PCR (test code = 94927-7) Negative Negative The RSV target nucleic acids [...] SARS-CoV-2/Flu/RSV by their healthcare provider. Results from [facility] Xpert Xpress SARS-CoV-2/Flu/RSV test should be [...] the Act. Fact Sheet for Healthcare Providers:https://w [employer]/Docu ments/Xpert%20Xpres s%20SARS%20CoV-2/Fa ct%20Sheets/302-390 2%86RJVA-PPB-8%20HE ALTHCARE%20PROVIDER S%20FACT%20SHEET.pd f Fact Sheet for Healthcare Patients:https://[employer]/Docum ents/Xpert%20Xpress %20SARS%20Cov-2/Fac t%20Sheets/302-3801 %54XSHA-LPN-2%20PAT IENT%20FACT%20SHEET .pdf Lab Interpretation (test code = 85446-4) [facility] [id number] 12:18:09* Test Item Value Reference Range Interpretation Comments SARS-COV2/RT-PCR (test code = 42238-7) Negative Negative The SARS-CoV-2 target nucleic acids [...] provider. Influenza A RT-PCR (test code = 75903-1) Negative Negative The Flu A target nucleic acids are not detected in this specimen. Influenza B RT-PCR (test code = 17210-3) Negative Negative The Flu B target nucleic acids are not detected in this specimen. RSV by RT-PCR (test code = 40542-1) Negative Negative The RSV target nucleic acids [...] SARS-CoV-2/Flu/RSV by their healthcare provider. Results from [facility] Xpert Xpress SARS-CoV-2/Flu/RSV test should be [...] the Act. Fact Sheet for Healthcare Providers:https://w ww[employer]/Docu ments/Xpert%20Xpres s%20SARS%20CoV-2/Fa ct%20Sheets/302-390 2%95MPIE-NPJ-9%20HE ALTHCARE%20PROVIDER S%20FACT%20SHEET.pd f Fact Sheet for Healthcare Patients:https://ww w.[employer]/Docum ents/Xpert%20Xpress %20SARS%20Cov-2/Fac t%20Sheets/302-3801 %88KURC-MDS-8%20PAT IENT%20FACT%20SHEET .pdf Lab Interpretation (test code = 82038-2) [facility] [id number] 12:18:09* Test Item Value Reference Range Interpretation Comments SARS-COV2/RT-PCR (test code = 01284-6) Negative Negative The SARS-CoV-2 target nucleic acids [...] provider. Influenza A RT-PCR (test code = 98967-4) Negative Negative The Flu A target nucleic acids are not detected in this specimen. Influenza B RT-PCR (test code = 06450-6) Negative Negative The Flu B target nucleic acids are not detected in this specimen. RSV by RT-PCR (test code = 92951-5) Negative Negative The RSV target nucleic acids [...] SARS-CoV-2/Flu/RSV by their healthcare provider. Results from [facility] Xpert Xpress SARS-CoV-2/Flu/RSV test should be [...] the Act. Fact Sheet for Healthcare Providers:https://w [employer].com/Docu ments/Xpert%20Xpres s%20SARS%20CoV-2/Fa ct%20Sheets/302-390 2%49EAZP-ELL-2%20HE ALTHCARE%20PROVIDER S%20FACT%20SHEET.pd f Fact Sheet for Healthcare Patients:https://[employer]/Docum ents/Xpert%20Xpress %20SARS%20Cov-2/Fac t%20Sheets/302-3801 %02UBFS-DCT-4%20PAT IENT%20FACT%20SHEET .pdf Lab Interpretation (test code = 53734-2) [facility] [id number] 12:18:09* Test Item Value Reference Range Interpretation Comments SARS-COV2/RT-PCR (test code = 02914-1) Negative Negative The SARS-CoV-2 target nucleic acids [...] provider. Influenza A RT-PCR (test code = 13930-1) Negative Negative The Flu A target nucleic acids are not detected in this specimen. Influenza B RT-PCR (test code = 14963-5) Negative Negative The Flu B target nucleic acids are not detected in this specimen. RSV by RT-PCR (test code = 76225-0) Negative Negative The RSV target nucleic acids [...] the Act. Fact Sheet for Healthcare Providers:https://w [employer].com/Docu ments/Xpert%20Xpres s%20SARS%20CoV-2/Fa ct%20Sheets/302-390 2%72MRWR-QXK-6%20HE ALTHCARE%20PROVIDER S%20FACT%20SHEET.pd f Fact Sheet for Healthcare Patients:https://ww [employer]/Docum ents/Xpert%20Xpress %20SARS%20Cov-2/Fac t%20Sheets/302-3801 %24AARX-YFM-0%20PAT IENT%20FACT%20SHEET .pdf Lab Interpretation (test code = 22608-1) [facility] [id number] 12:18:09* Test Item Value Reference Range Interpretation Comments SARS-COV2/RT-PCR (test code = 05805-7) Negative Negative The SARS-CoV-2 target nucleic acids [...] provider. Influenza A RT-PCR (test code = 87548-9) Negative Negative The Flu A target nucleic acids are not detected in this specimen. Influenza B RT-PCR (test code = 08454-0) Negative Negative The Flu B target nucleic acids are not detected in this specimen. RSV by RT-PCR (test code = 61812-7) Negative Negative The RSV target nucleic acids [...] the Act. Fact Sheet for Healthcare Providers:https://manuel [employer].com/Docu ments/Xpert%20Xpres s%20SARS%20CoV-2/Fa ct%20Sheets/302-390 2%55ULDH-PSU-6%20HE ALTHCARE%20PROVIDER S%20FACT%20SHEET.pd f Fact Sheet for Healthcare Patients:https://maria elena [employer]/Docum ents/Xpert%20Xpress %20SARS%20Cov-2/Fac t%20Sheets/302-3801 %89LDCX-FLN-0%20PAT IENT%20FACT%20SHEET .pdf Lab Interpretation (test code = 49012-0) [facility] [id number] 12:18:09* Test Item Value Reference Range Interpretation Comments SARS-COV2/RT-PCR (test code = 39150-6) Negative Negative The SARS-CoV-2 target nucleic acids [...] provider. Influenza A RT-PCR (test code = 53045-7) Negative Negative The Flu A target nucleic acids are not detected in this specimen. Influenza B RT-PCR (test code = 83389-8) Negative Negative The Flu B target nucleic acids are not detected in this specimen. RSV by RT-PCR (test code = 42704-5) Negative Negative The RSV target nucleic acids [...] SARS-CoV-2/Flu/RSV by their healthcare provider. Results from [facility] Xpert Xpress SARS-CoV-2/Flu/RSV test should be [...] the Act. Fact Sheet for Healthcare Providers:https://w [employer].com/Docu ments/Xpert%20Xpres s%20SARS%20CoV-2/Fa ct%20Sheets/302-390 2%45HCCC-IRY-7%20HE ALTHCARE%20PROVIDER S%20FACT%20SHEET.pd f Fact Sheet for Healthcare Patients:https://maria elena [employer]/Docum ents/Xpert%20Xpress %20SARS%20Cov-2/Fac t%20Sheets/302-3801 %24YHES-SOK-0%20PAT IENT%20FACT%20SHEET .pdf Lab Interpretation (test code = 93444-5) [facility] [id number] 12:18:09* Test Item Value Reference Range Interpretation Comments SARS-COV2/RT-PCR (test code = 41976-6) Negative Negative The SARS-CoV-2 target nucleic acids [...] provider. Influenza A RT-PCR (test code = 79941-1) Negative Negative The Flu A target nucleic acids are not detected in this specimen. Influenza B RT-PCR (test code = 25887-7) Negative Negative The Flu B target nucleic acids are not detected in this specimen. RSV by RT-PCR (test code = 77490-8) Negative Negative The RSV target nucleic acids [...] Act. Fact Sheet for Healthcare Providers:https://w maria elena.[employer]/Docu ments/Xpert%20Xpres s%20SARS%20CoV-2/Fa ct%20Sheets/302-390 2%56RVTC-OGQ-6%20HE ALTHCARE%20PROVIDER S%20FACT%20SHEET.pd f Fact Sheet for Healthcare Patients:https://ww w.[employer]/Docum ents/Xpert%20Xpress %20SARS%20Cov-2/Fac t%20Sheets/3023801 %10QHQV-PIC-6%20PAT IENT%20FACT%20SHEET .pdf Lab Interpretation (test code = 22595-2) [facility] [id number] 12:18:09* Test Item Value Reference Range Interpretation Comments SARS-COV2/RT-PCR (test code = 91809-6) Negative Negative The SARS-CoV-2 target nucleic acids [...] provider. Influenza A RT-PCR (test code = 05716-9) Negative Negative The Flu A target nucleic acids are not detected in this specimen. Influenza B RT-PCR (test code = 64620-8) Negative Negative The Flu B target nucleic acids are not detected in this specimen. RSV by RT-PCR (test code = 62346-7) Negative Negative The RSV target nucleic acids [...] SARS-CoV-2/Flu/RSV by their healthcare provider. Results from [facility] Xpert Xpress SARS-CoV-2/Flu/RSV test should be [...] of the Act. Fact Sheet for Healthcare Providers:https://Local.com/Docu ments/Xpert%20Xpres s%20SARS%20CoV-2/Fa ct%20Sheets/302-390 2%25JFTI-XMC-8%20HE ALTHCARE%20PROVIDER S%20FACT%20SHEET.pd f Fact Sheet for Healthcare Patients:https://[employer]/Docum ents/Xpert%20Xpress %20SARS%20Cov-2/Fac t%20Sheets/302-3801 %31HSJU-GWR-7%20PAT IENT%20FACT%20SHEET .pdf Lab Interpretation (test code = 41514-3) [facility] [id number] 12:18:09* Test Item Value Reference Range Interpretation Comments SARS-COV2/RT-PCR (test code = 73260-8) Negative Negative The SARS-CoV-2 target nucleic acids [...] provider. Influenza A RT-PCR (test code = 36420-1) Negative Negative The Flu A target nucleic acids are not detected in this specimen. Influenza B RT-PCR (test code = 68551-0) Negative Negative The Flu B target nucleic acids are not detected in this specimen. RSV by RT-PCR (test code = 41196-2) Negative Negative The RSV target nucleic acids [...] the Act. Fact Sheet for Healthcare Providers:https://w [employer].com/Docu ments/Xpert%20Xpres s%20SARS%20CoV-2/Fa ct%20Sheets/302-390 2%34QOYY-QAW-5%20HE ALTHCARE%20PROVIDER S%20FACT%20SHEET.pd f Fact Sheet for Healthcare Patients:https://ww [employer]/Docum ents/Xpert%20Xpress %20SARS%20Cov-2/Fac t%20Sheets/302-3801 %64KUZQ-OMX-9%20PAT IENT%20FACT%20SHEET .pdf Lab Interpretation (test code = 08936-1) [facility] [id number] 12:18:09* Test Item Value Reference Range Interpretation Comments SARS-COV2/RT-PCR (test code = 30876-5) Negative Negative The SARS-CoV-2 target nucleic acids [...] provider. Influenza A RT-PCR (test code = 13355-4) Negative Negative The Flu A target nucleic acids are not detected in this specimen. Influenza B RT-PCR (test code = 31475-5) Negative Negative The Flu B target nucleic acids are not detected in this specimen. RSV by RT-PCR (test code = 23494-8) Negative Negative The RSV target nucleic acids [...] the Act. Fact Sheet for Healthcare Providers:https://manuel [employer].com/Docu ments/Xpert%20Xpres s%20SARS%20CoV-2/Fa ct%20Sheets/302-390 2%62ROZI-AJE-6%20HE ALTHCARE%20PROVIDER S%20FACT%20SHEET.pd f Fact Sheet for Healthcare Patients:https://maria elena [employer]/Docum ents/Xpert%20Xpress %20SARS%20Cov-2/Fac t%20Sheets/302-3801 %88GEFD-ELZ-9%20PAT IENT%20FACT%20SHEET .pdf Lab Interpretation (test code = 56232-5) [facility] [id number] 12:18:09* Test Item Value Reference Range Interpretation Comments SARS-COV2/RT-PCR (test code = 36110-3) Negative Negative The SARS-CoV-2 target nucleic acids [...] provider. Influenza A RT-PCR (test code = 20886-8) Negative Negative The Flu A target nucleic acids are not detected in this specimen. Influenza B RT-PCR (test code = 96133-4) Negative Negative The Flu B target nucleic acids are not detected in this specimen. RSV by RT-PCR (test code = 14357-5) Negative Negative The RSV target nucleic acids [...] the Act. Fact Sheet for Healthcare Providers:https://w [employer].com/Docu ments/Xpert%20Xpres s%20SARS%20CoV-2/Fa ct%20Sheets/302-390 2%83QCTB-YFW-1%20HE ALTHCARE%20PROVIDER S%20FACT%20SHEET.pd f Fact Sheet for Healthcare Patients:https://[employer]/Docum ents/Xpert%20Xpress %20SARS%20Cov-2/Fac t%20Sheets/302-3801 %02WBIK-UVU-3%20PAT IENT%20FACT%20SHEET .pdf Lab Interpretation (test code = 41881-2) [facility] [id number] 12:18:09* Test Item Value Reference Range Interpretation Comments SARS-COV2/RT-PCR (test code = 35601-9) Negative Negative The SARS-CoV-2 target nucleic acids [...] provider. Influenza A RT-PCR (test code = 41174-5) Negative Negative The Flu A target nucleic acids are not detected in this specimen. Influenza B RT-PCR (test code = 03683-0) Negative Negative The Flu B target nucleic acids are not detected in this specimen. RSV by RT-PCR (test code = 01954-4) Negative Negative The RSV target nucleic acids [...] Act. Fact Sheet for Healthcare Providers:https://w maria elena.[employer]/Docu ments/Xpert%20Xpres s%20SARS%20CoV-2/Fa ct%20Sheets/302-390 2%73XQDG-OGF-0%20HE ALTHCARE%20PROVIDER S%20FACT%20SHEET.pd f Fact Sheet for Healthcare Patients:https://ww w.[employer]/Docum ents/Xpert%20Xpress %20SARS%20Cov-2/Fac t%20Sheets/302-3801 %41PLOY-VOK-6%20PAT IENT%20FACT%20SHEET .pdf Lab Interpretation (test code = 21026-5) [facility] [id number] 12:18:09* Test Item Value Reference Range Interpretation Comments SARS-COV2/RT-PCR (test code = 23597-0) Negative Negative The SARS-CoV-2 target nucleic acids [...] provider. Influenza A RT-PCR (test code = 61277-1) Negative Negative The Flu A target nucleic acids are not detected in this specimen. Influenza B RT-PCR (test code = 64620-8) Negative Negative The Flu B target nucleic acids are not detected in this specimen. RSV by RT-PCR (test code = 49938-2) Negative Negative The RSV target nucleic acids [...] SARS-CoV-2/Flu/RSV by their healthcare provider. Results from [facility] Xpert Xpress SARS-CoV-2/Flu/RSV test should be [...] of the Act. Fact Sheet for Healthcare Providers:https://Local.com/Docu ments/Xpert%20Xpres s%20SARS%20CoV-2/Fa ct%20Sheets/302-390 2%78RAXR-QCA-8%20HE ALTHCARE%20PROVIDER S%20FACT%20SHEET.pd f Fact Sheet for Healthcare Patients:https://[employer]/Docum ents/Xpert%20Xpress %20SARS%20Cov-2/Fac t%20Sheets/302-3801 %26INYJ-MHI-9%20PAT IENT%20FACT%20SHEET .pdf Lab Interpretation (test code = 73972-1) [facility] [id number] 12:18:09* Test Item Value Reference Range Interpretation Comments SARS-COV2/RT-PCR (test code = 17291-9) Negative Negative The SARS-CoV-2 target nucleic acids [...] provider. Influenza A RT-PCR (test code = 54202-9) Negative Negative The Flu A target nucleic acids are not detected in this specimen. Influenza B RT-PCR (test code = 53555-8) Negative Negative The Flu B target nucleic acids are not detected in this specimen. RSV by RT-PCR (test code = 29489-1) Negative Negative The RSV target nucleic acids [...] the Act. Fact Sheet for Healthcare Providers:https://w [employer].com/Docu ments/Xpert%20Xpres s%20SARS%20CoV-2/Fa ct%20Sheets/302-390 2%12ZOOA-OBU-0%20HE ALTHCARE%20PROVIDER S%20FACT%20SHEET.pd f Fact Sheet for Healthcare Patients:https://ww [employer]/Docum ents/Xpert%20Xpress %20SARS%20Cov-2/Fac t%20Sheets/302-3801 %51VCKY-WTU-6%20PAT IENT%20FACT%20SHEET .pdf Lab Interpretation (test code = 51992-3) [facility] [id number] 12:18:09* Test Item Value Reference Range Interpretation Comments SARS-COV2/RT-PCR (test code = 10078-7) Negative Negative The SARS-CoV-2 target nucleic acids [...] provider. Influenza A RT-PCR (test code = 32238-2) Negative Negative The Flu A target nucleic acids are not detected in this specimen. Influenza B RT-PCR (test code = 29497-2) Negative Negative The Flu B target nucleic acids are not detected in this specimen. RSV by RT-PCR (test code = 66533-9) Negative Negative The RSV target nucleic acids [...] the Act. Fact Sheet for Healthcare Providers:https://w [employer].com/Docu ments/Xpert%20Xpres s%20SARS%20CoV-2/Fa ct%20Sheets/302-390 2%98ZXAD-JPK-8%20HE ALTHCARE%20PROVIDER S%20FACT%20SHEET.pd f Fact Sheet for Healthcare Patients:https://maria elena [employer]/Docum ents/Xpert%20Xpress %20SARS%20Cov-2/Fac t%20Sheets/302-3801 %81SUDR-PIM-8%20PAT IENT%20FACT%20SHEET .pdf Lab Interpretation (test code = 75400-9) [facility] [id number] 12:18:09* Test Item Value Reference Range Interpretation Comments SARS-COV2/RT-PCR (test code = 35571-0) Negative Negative The SARS-CoV-2 target nucleic acids [...] provider. Influenza A RT-PCR (test code = 48685-2) Negative Negative The Flu A target nucleic acids are not detected in this specimen. Influenza B RT-PCR (test code = 95187-0) Negative Negative The Flu B target nucleic acids are not detected in this specimen. RSV by RT-PCR (test code = 26063-7) Negative Negative The RSV target nucleic acids [...] the Act. Fact Sheet for Healthcare Providers:https://w [employer].com/Docu ments/Xpert%20Xpres s%20SARS%20CoV-2/Fa ct%20Sheets/302-390 2%59TLBZ-XEB-6%20HE ALTHCARE%20PROVIDER S%20FACT%20SHEET.pd f Fact Sheet for Healthcare Patients:https://[employer]/Docum ents/Xpert%20Xpress %20SARS%20Cov-2/Fac t%20Sheets/302-3801 %46VIRQ-RZY-6%20PAT IENT%20FACT%20SHEET .pdf Lab Interpretation (test code = 36514-3) [facility] [id number] 12:18:09* Test Item Value Reference Range Interpretation Comments SARS-COV2/RT-PCR (test code = 37407-5) Negative Negative The SARS-CoV-2 target nucleic acids [...] provider. Influenza A RT-PCR (test code = 67069-7) Negative Negative The Flu A target nucleic acids are not detected in this specimen. Influenza B RT-PCR (test code = 42774-1) Negative Negative The Flu B target nucleic acids are not detected in this specimen. RSV by RT-PCR (test code = 57401-4) Negative Negative The RSV target nucleic acids [...] the Act. Fact Sheet for Healthcare Providers:https://manuel arredondo.[employer]/Docu ments/Xpert%20Xpres s%20SARS%20CoV-2/Fa ct%20Sheets/302-390 2%01XBHU-JHM-4%20HE ALTHCARE%20PROVIDER S%20FACT%20SHEET.pd f Fact Sheet for Healthcare Patients:https://[employer]/Docum ents/Xpert%20Xpress %20SARS%20Cov-2/Fac t%20Sheets/302-3801 %62TTBF-ZAB-8%20PAT IENT%20FACT%20SHEET .pdf Lab Interpretation (test code = 58029-0) [facility] [id number] 12:18:09* Test Item Value Reference Range Interpretation Comments SARS-COV2/RT-PCR (test code = 23065-7) Negative Negative The SARS-CoV-2 target nucleic acids [...] provider. Influenza A RT-PCR (test code = 13256-3) Negative Negative The Flu A target nucleic acids are not detected in this specimen. Influenza B RT-PCR (test code = 52350-1) Negative Negative The Flu B target nucleic acids are not detected in this specimen. RSV by RT-PCR (test code = 02117-4) Negative Negative The RSV target nucleic acids [...] SARS-CoV-2/Flu/RSV by their healthcare provider. Results from [facility] Xpert Xpress SARS-CoV-2/Flu/RSV test should be [...] the Act. Fact Sheet for Healthcare Providers:https://w [employer]/Docu ments/Xpert%20Xpres s%20SARS%20CoV-2/Fa ct%20Sheets/302-390 2%36THBA-DVM-1%20HE ALTHCARE%20PROVIDER S%20FACT%20SHEET.pd f Fact Sheet for Healthcare Patients:https://[employer]/Docum ents/Xpert%20Xpress %20SARS%20Cov-2/Fac t%20Sheets/302-3801 %77UPAA-WYO-3%20PAT IENT%20FACT%20SHEET .pdf Lab Interpretation (test code = 81793-9) [facility] [id number] 12:18:09* Test Item Value Reference Range Interpretation Comments SARS-COV2/RT-PCR (test code = 85789-8) Negative Negative The SARS-CoV-2 target nucleic acids [...] provider. Influenza A RT-PCR (test code = 51054-4) Negative Negative The Flu A target nucleic acids are not detected in this specimen. Influenza B RT-PCR (test code = 55103-1) Negative Negative The Flu B target nucleic acids are not detected in this specimen. RSV by RT-PCR (test code = 91898-2) Negative Negative The RSV target nucleic acids [...] the Act. Fact Sheet for Healthcare Providers:https://w [employer]/Docu ments/Xpert%20Xpres s%20SARS%20CoV-2/Fa ct%20Sheets/302-390 2%13FBON-GAZ-0%20HE ALTHCARE%20PROVIDER S%20FACT%20SHEET.pd f Fact Sheet for Healthcare Patients:https://maria elena [employer]/Docum ents/Xpert%20Xpress %20SARS%20Cov-2/Fac t%20Sheets/302-3801 %06HRHY-WNX-4%20PAT IENT%20FACT%20SHEET .pdf Lab Interpretation (test code = 23619-4) [facility]RSV [id number] 12:18:09* Test Item Value Reference Range Interpretation Comme nts SARS-COV2/RT-PCR (test code = 2051128) Negative Negative The SARS-CoV-2 t arget nucleic [...] provider. INFLUENZA A RT-PCR (test code = 5434234) Negative Negative The Flu A target nucleic acids are not detected in this specimen. INFLUENZA B RT-PCR (test code = 4848563) Negative Negative The Flu B target nucleic acids are not detected in this specimen. RSV RT-PCR (test code = 2200674) Negative Negative The RSV target n ucleic [...] SARS-CoV-2/Flu/RSV by their healthcare provider. Results from [facility] Xpert Xpress SARS-CoV-2/Flu/RSV test should be [...] 564(g) of the Act.Fact Sheet for Healthcare Providers:https://www.[employer]/Documents/Xpert%20Xpress%20SARS%20CoV-2/Fact%2 0ee/302-6332%18SRYC-UXV-8%20HEALTHCARE%20PROVIDERS%20FACT%20SHEET.pdfFact Sheet for Healthcare Patients:https://ww w.[employer]/Documents/Xpert%20Xpress%20SARS%20Cov-2/Fact%20Sheets/302-2364%20S ARS-COV-2%20PATIENT%20FACT%20SHEET.pdfPOCT-GLUCOSE [id number] 11:08:35* Test Item Value Reference Range Interpretation Comme [facility] POC-GLUCOSE METER (LINNEAAKER) (test code = 1538) 111 mg/dL 70-110 H : TESTED AT [facility] [address] [facility], [address]: Service Plumber/Survey Interviewer ID = [id number] for Tramaine Daniels POCT-GLUCOSE [id number] 08:16:42* Test Item Value Reference Range Interpretation Comme [facility] POC-GLUCOSE METER (LATOYA) (test code = 1538) 108 mg/dL 70-110 : TESTED AT [facility] [address] [facility], [address]: Service Plumber/Survey Interviewer ID = [id number] for Beata Vargas MR CERVICAL SPINE WITHOUT IV [id number] 07:58:49 [facility] 1970 Sex: FMR [...] spine.Posterior ligament ossifications at the calcifications at M63-V51wicbnyl moderate spinal canal stenosisPosterior disc osteophyte at the T11-T12 level causing mild spinal canalstenosisThe spinal cord is normal in caliber and signal intensity. There is no significant foraminal or spinal canal stenosis.2.1 x 2.3 cm left adrenal nodule, incompletely characterizedParaspinal soft tissues are unremarkable.Lumbar spine:Postoperative changes from posterior decompression at the L3 and F6biudhi. A 1.3 x 1.5 cm (AP by [...] Signed By: Maxim Sultana09/04/2023 08:00 CDTWorkstation Name: [id number] THORACIC SPINE WITHOUT IV [id number] 07:58:49 [facility] : 1970 Sex: FMR [...] spine.Posterior ligament ossifications at the calcifications at G48-Z52rfbbkon moderate spinal canal stenosisPosterior disc osteophyte at the T11-T12 level causing mild spinal canalstenosisThe spinal cord is normal in caliber and signal intensity. There is no significant foraminal or spinal canal stenosis.2.1 x 2.3 cm left adrenal nodule, incompletely characterizedParaspinal soft tissues are unremarkable.Lumbar spine:Postoperative changes from posterior decompression at the L3 and Z1xclzfs. A 1.3 x 1.5 cm (AP by [...] Signed By: Maxim Sultana09/04/2023 08:00 CDTWorkstation Name: [id number] LUMBAR SPINE WITHOUT IV [id number] 07:58:[address] [facility] : 1970 Sex: [...] spine.Posterior ligament ossifications at the calcifications at F65-U29fdfsgzv moderate spinal canal stenosisPosterior disc osteophyte at the T11-T12 level causing mild spinal canalstenosisThe spinal cord is normal in caliber and signal intensity. There is no significant foraminal or spinal canal stenosis.2.1 x 2.3 cm left adrenal nodule, incompletely characterizedParaspinal soft tissues are unremarkable.Lumbar spine:Postoperative changes from posterior decompression at the L3 and T2nnebzm. A 1.3 x 1.5 cm (AP by [...] Signed By: Maxim Sultana09/04/2023 08:00 CDTWorkstation Name: [id number] 2023-09-04 07:46:14* Test Item Value Reference Range Interpretation Comme nts FERRITIN (BEAKER) (test code = 361) 31.77 ng/mL 5.00-275.00 Service Plumber ID - hgIRON, TIBC, % SAT. (WITHOUT FERRITIN)2023-09-04 07:24:52* Test Item Value Reference Range Interpretation Comme nts IRON (BEAKER) (test code = 547) 22.0 ug/dL 40.0-160.0 L TOTAL IRON BINDING CAPACITY (BEAKER) (test code = 769) 369 ug/dL 250-450 IRON % SATURATION (2) (LINNEAAKE R) (test code = 2590) 6 % 20-55 L Service Plumber ID - hgCT LUMBAR SPINE WITHOUT IV [id number] 05:42:45 [facility] : 1970 Sex: FEXAM: [...] spine:Bones/alignment: Age- indeterminate nondisplaced fracture of the O3pvvtyglbw elements, predominantly i nvolving the lamina and [...] Signed By: Suzan Weaver09/04/2023 05:45 CDTWorkstation Name: [id number] THORACIC SPINE WITHOUT IV [id number] 05:42:45 [facility]AC[facility]ELA MCCABE : 1970 Sex: FEXAM: [...] spine:Bones/alignment: Age- indeterminate nondisplaced fracture of the N0skqqjcimb elements, predominantly i nvolving the lamina and [...] Signed By: Suzan Weaver09/04/2023 05:45 CDTWorkstation Name: [id number] 04:44:34* Test Item Value Reference Range Interpretation Comme nts FIBRINOGEN LEVEL (BEAKER) (t est code = 658) 410 mg/dl 225-434 Urinalysis without Unhfsvqzcie7964-20-56 03:58:52* Test Item Value Reference Range Interpretation Comme nts Color, UA (test code = 5778-6) Light Yellow Clarity, UA (test code = 5767-9) Hazy Specific [place], UA (test code = 5811-5) 1.017 1.001-1.035 pH, UA (test code = 5803-2) 6.0 5.0-8.0 Protein, UA (test code = 34029-9) 10 mg/dL Negative A Glucose, UA (test code = 365) Negative Negative Ketones, UA (test code = 2514-8) Trace Negative A Bilirubin, UA (test code = 49462-3) Negative Negative Blood, UA (test code = 66378-8) Trace Negative A Nitrite, UA (test code = 5802-4) Negative Negative Leukocytes, UA (test code = 5799-2) Negative Negative Urobilinogen, UA (test code = 40007-3) 0.2 0.2-1.0 Specimen Source (test code = 2795) LYNDSAY (test code = LYNDSAY) Service Plumber ID - [auto]Service Plumber ID - tech Lab Interpretation (test code = 39397-9) [facility] Egeweemzpwz6721-96-19 03:58:52* Test Item Value Reference Range Interpretation Comme nts Color, UA (test code = 5778-6) Light Yellow Clarity, UA (test code = 5767-9) Hazy Specific [place], UA (test code = 5811-5) 1.017 1.001-1.035 pH, UA (test code = 5803-2) 6.0 5.0-8.0 Protein, UA (test code = 91448-8) 10 mg/dL Negative A Glucose, UA (test code = 365) Negative Negative Ketones, UA (test code = 2514-8) Trace Negative A Bilirubin, UA (test code = 42058-3) Negative Negative Blood, UA (test code = 97038-6) Trace Negative A Nitrite, UA (test code = 5802-4) Negative Negative Leukocytes, UA (test code = 5799-2) Negative Negative Urobilinogen, UA (test code = 54116-1) 0.2 0.2-1.0 Specimen Source (test code = 2795) LYNDSAY (test code = LYNDSAY) Service Plumber ID - [auto]Service Plumber ID - tech Lab Interpretation (test code = 94003-2) [facility] Ydfturmonsa9793-32-45 03:58:52* Test Item Value Reference Range Interpretation Comme nts Color, UA (test code = 5778-6) Light Yellow Clarity, UA (test code = 5767-9) Hazy Specific [place], UA (test code = 5811-5) 1.017 1.001-1.035 pH, UA (test code = 5803-2) 6.0 5.0-8.0 Protein, UA (test code = 54354-4) 10 mg/dL Negative A Glucose, UA (test code = 365) Negative Negative Ketones, UA (test code = 2514-8) Trace Negative A Bilirubin, UA (test code = 55585-5) Negative Negative Blood, UA (test code = 58023-4) Trace Negative A Nitrite, UA (test code = 5802-4) Negative Negative Leukocytes, UA (test code = 5799-2) Negative Negative Urobilinogen, UA (test code = 88506-3) 0.2 0.2-1.0 Specimen Source (test code = 2795) LYNDSAY (test code = LYNDSAY) Service Plumber ID - [auto]Service Plumber ID - tech Lab Interpretation (test code = 37514-1) [facility] Euxexreepku1717-71-99 03:58:52* Test Item Value Reference Range Interpretation Comme nts Color, UA (test code = 5778-6) Light Yellow Clarity, UA (test code = 5767-9) Hazy Specific [place], UA (test code = 5811-5) 1.017 1.001-1.035 pH, UA (test code = 5803-2) 6.0 5.0-8.0 Protein, UA (test code = 51999-6) 10 mg/dL Negative A Glucose, UA (test code = 365) Negative Negative Ketones, UA (test code = 2514-8) Trace Negative A Bilirubin, UA (test code = 67149-9) Negative Negative Blood, UA (test code = 35813-5) Trace Negative A Nitrite, UA (test code = 5802-4) Negative Negative Leukocytes, UA (test code = 5799-2) Negative Negative Urobilinogen, UA (test code = 85363-6) 0.2 0.2-1.0 Specimen Source (test code = 2795) LYNDSAY (test code = LYNDSAY) Service Plumber ID - [auto]Service Plumber ID - tech Lab Interpretation (test code = 01846-9) [facility] Eyzrgqyqyzx7344-39-38 03:58:52* Test Item Value Reference Range Interpretation Comme nts Color, UA (test code = 5778-6) Light Yellow Clarity, UA (test code = 5767-9) Hazy Specific [place], UA (test code = 5811-5) 1.017 1.001-1.035 pH, UA (test code = 5803-2) 6.0 5.0-8.0 Protein, UA (test code = 37311-4) 10 mg/dL Negative A Glucose, UA (test code = 365) Negative Negative Ketones, UA (test code = 2514-8) Trace Negative A Bilirubin, UA (test code = 18098-5) Negative Negative Blood, UA (test code = 37922-8) Trace Negative A Nitrite, UA (test code = 5802-4) Negative Negative Leukocytes, UA (test code = 5799-2) Negative Negative Urobilinogen, UA (test code = 36681-6) 0.2 0.2-1.0 Specimen Source (test code = 2795) LYNDSAY (test code = LYNDSAY) Service Plumber ID - [auto]Service Plumber ID - tech Lab Interpretation (test code = 71519-0) [facility] Uqwxvtcdbki4046-13-70 03:58:52* Test Item Value Reference Range Interpretation Comme nts Color, UA (test code = 5778-6) Light Yellow Clarity, UA (test code = 5767-9) Hazy Specific [place], UA (test code = 5811-5) 1.017 1.001-1.035 pH, UA (test code = 5803-2) 6.0 5.0-8.0 Protein, UA (test code = 32278-9) 10 mg/dL Negative A Glucose, UA (test code = 365) Negative Negative Ketones, UA (test code = 2514-8) Trace Negative A Bilirubin, UA (test code = 41824-1) Negative Negative Blood, UA (test code = 66394-6) Trace Negative A Nitrite, UA (test code = 5802-4) Negative Negative Leukocytes, UA (test code = 5799-2) Negative Negative Urobilinogen, UA (test code = 81388-5) 0.2 0.2-1.0 Specimen Source (test code = 2795) LYNDSAY (test code = LYNDSAY) Service Plumber ID - [auto]Service Plumber ID - tech Lab Interpretation (test code = 58685-1) [facility] Bdrtwuqpchy3573-83-59 03:58:52* Test Item Value Reference Range Interpretation Comme nts Color, UA (test code = 5778-6) Light Yellow Clarity, UA (test code = 5767-9) Hazy Specific [place], UA (test code = 5811-5) 1.017 1.001-1.035 pH, UA (test code = 5803-2) 6.0 5.0-8.0 Protein, UA (test code = 81265-1) 10 mg/dL Negative A Glucose, UA (test code = 365) Negative Negative Ketones, UA (test code = 2514-8) Trace Negative A Bilirubin, UA (test code = 09622-3) Negative Negative Blood, UA (test code = 42843-2) Trace Negative A Nitrite, UA (test code = 5802-4) Negative Negative Leukocytes, UA (test code = 5799-2) Negative Negative Urobilinogen, UA (test code = 00721-5) 0.2 0.2-1.0 Specimen Source (test code = 2795) LYNDSAY (test code = LYNDSAY) Service Plumber ID - [auto]Service Plumber ID - tech Lab Interpretation (test code = 43630-0) [facility] Gizalzskqut4966-38-22 03:58:52* Test Item Value Reference Range Interpretation Comme nts Color, UA (test code = 5778-6) Light Yellow Clarity, UA (test code = 5767-9) Hazy Specific [place], UA (test code = 5811-5) 1.017 1.001-1.035 pH, UA (test code = 5803-2) 6.0 5.0-8.0 Protein, UA (test code = 08379-4) 10 mg/dL Negative A Glucose, UA (test code = 365) Negative Negative Ketones, UA (test code = 2514-8) Trace Negative A Bilirubin, UA (test code = 60200-9) Negative Negative Blood, UA (test code = 69722-3) Trace Negative A Nitrite, UA (test code = 5802-4) Negative Negative Leukocytes, UA (test code = 5799-2) Negative Negative Urobilinogen, UA (test code = 07451-4) 0.2 0.2-1.0 Specimen Source (test code = 2795) LYNDSAY (test code = LYNDSAY) Service Plumber ID - [auto]Service Plumber ID - tech Lab Interpretation (test code = 41755-6) [facility] Xsyaaxmfvid0813-03-29 03:58:52* Test Item Value Reference Range Interpretation Comme nts Color, UA (test code = 5778-6) Light Yellow Clarity, UA (test code = 5767-9) Hazy Specific [place], UA (test code = 5811-5) 1.017 1.001-1.035 pH, UA (test code = 5803-2) 6.0 5.0-8.0 Protein, UA (test code = 23232-6) 10 mg/dL Negative A Glucose, UA (test code = 365) Negative Negative Ketones, UA (test code = 2514-8) Trace Negative A Bilirubin, UA (test code = 81466-0) Negative Negative Blood, UA (test code = 48655-3) Trace Negative A Nitrite, UA (test code = 5802-4) Negative Negative Leukocytes, UA (test code = 5799-2) Negative Negative Urobilinogen, UA (test code = 69798-8) 0.2 0.2-1.0 Specimen Source (test code = 2795) LYNDSAY (test code = LYNDSAY) Service Plumber ID - [auto]Service Plumber ID - tech Lab Interpretation (test code = 63912-5) [facility] Vyvhajruukr3233-94-55 03:58:52* Test Item Value Reference Range Interpretation Comme nts Color, UA (test code = 5778-6) Light Yellow Clarity, UA (test code = 5767-9) Hazy Specific [place], UA (test code = 5811-5) 1.017 1.001-1.035 pH, UA (test code = 5803-2) 6.0 5.0-8.0 Protein, UA (test code = 11846-9) 10 mg/dL Negative A Glucose, UA (test code = 365) Negative Negative Ketones, UA (test code = 2514-8) Trace Negative A Bilirubin, UA (test code = 33564-1) Negative Negative Blood, UA (test code = 95410-5) Trace Negative A Nitrite, UA (test code = 5802-4) Negative Negative Leukocytes, UA (test code = 5799-2) Negative Negative Urobilinogen, UA (test code = 52092-1) 0.2 0.2-1.0 Specimen Source (test code = 2795) LYNDSAY (test code = LYNDSAY) Service Plumber ID - [auto]Service Plumber ID - tech Lab Interpretation (test code = 20157-4) [facility] Bxkiibgeidt4696-68-45 03:58:52* Test Item Value Reference Range Interpretation Comme nts Color, UA (test code = 5778-6) Light Yellow Clarity, UA (test code = 5767-9) Hazy Specific [place], UA (test code = 5811-5) 1.017 1.001-1.035 pH, UA (test code = 5803-2) 6.0 5.0-8.0 Protein, UA (test code = 99843-6) 10 mg/dL Negative A Glucose, UA (test code = 365) Negative Negative Ketones, UA (test code = 2514-8) Trace Negative A Bilirubin, UA (test code = 32794-1) Negative Negative Blood, UA (test code = 65709-6) Trace Negative A Nitrite, UA (test code = 5802-4) Negative Negative Leukocytes, UA (test code = 5799-2) Negative Negative Urobilinogen, UA (test code = 61942-4) 0.2 0.2-1.0 Specimen Source (test code = 2795) LYNDSAY (test code = LYNDSAY) Service Plumber ID - [auto]Service Plumber ID - tech Lab Interpretation (test code = 99149-3) [facility] Gdzadrgusjk9076-73-84 03:58:52* Test Item Value Reference Range Interpretation Comme nts Color, UA (test code = 5778-6) Light Yellow Clarity, UA (test code = 5767-9) Hazy Specific [place], UA (test code = 5811-5) 1.017 1.001-1.035 pH, UA (test code = 5803-2) 6.0 5.0-8.0 Protein, UA (test code = 99168-3) 10 mg/dL Negative A Glucose, UA (test code = 365) Negative Negative Ketones, UA (test code = 2514-8) Trace Negative A Bilirubin, UA (test code = 52460-1) Negative Negative Blood, UA (test code = 80043-2) Trace Negative A Nitrite, UA (test code = 5802-4) Negative Negative Leukocytes, UA (test code = 5799-2) Negative Negative Urobilinogen, UA (test code = 83023-7) 0.2 0.2-1.0 Specimen Source (test code = 2795) LYNDSAY (test code = LYNDSAY) Service Plumber ID - [auto]Service Plumber ID - tech Lab Interpretation (test code = 17380-0) [facility] Yyorfytonkt9520-13-86 03:58:52* Test Item Value Reference Range Interpretation Comme nts Color, UA (test code = 5778-6) Light Yellow Clarity, UA (test code = 5767-9) Hazy Specific [place], UA (test code = 5811-5) 1.017 1.001-1.035 pH, UA (test code = 5803-2) 6.0 5.0-8.0 Protein, UA (test code = 04389-7) 10 mg/dL Negative A Glucose, UA (test code = 365) Negative Negative Ketones, UA (test code = 2514-8) Trace Negative A Bilirubin, UA (test code = 04303-4) Negative Negative Blood, UA (test code = 94747-8) Trace Negative A Nitrite, UA (test code = 5802-4) Negative Negative Leukocytes, UA (test code = 5799-2) Negative Negative Urobilinogen, UA (test code = 85974-6) 0.2 0.2-1.0 Specimen Source (test code = 2795) LYNDSAY (test code = LYNDSAY) Service Plumber ID - [auto]Service Plumber ID - tech Lab Interpretation (test code = 94636-8) [facility] Ogllizsustw8252-83-29 03:58:52* Test Item Value Reference Range Interpretation Comme nts Color, UA (test code = 5778-6) Light Yellow Clarity, UA (test code = 5767-9) Hazy Specific [place], UA (test code = 5811-5) 1.017 1.001-1.035 pH, UA (test code = 5803-2) 6.0 5.0-8.0 Protein, UA (test code = 62140-7) 10 mg/dL Negative A Glucose, UA (test code = 365) Negative Negative Ketones, UA (test code = 2514-8) Trace Negative A Bilirubin, UA (test code = 56375-8) Negative Negative Blood, UA (test code = 49427-4) Trace Negative A Nitrite, UA (test code = 5802-4) Negative Negative Leukocytes, UA (test code = 5799-2) Negative Negative Urobilinogen, UA (test code = 86715-0) 0.2 0.2-1.0 Specimen Source (test code = 2795) LYNDSAY (test code = LYNDSAY) Service Plumber ID - [auto]Service Plumber ID - tech Lab Interpretation (test code = 99822-6) [facility] Tkzlvfmuxls6769-02-22 03:58:52* Test Item Value Reference Range Interpretation Comme nts Color, UA (test code = 5778-6) Light Yellow Clarity, UA (test code = 5767-9) Hazy Specific [place], UA (test code = 5811-5) 1.017 1.001-1.035 pH, UA (test code = 5803-2) 6.0 5.0-8.0 Protein, UA (test code = 60600-0) 10 mg/dL Negative A Glucose, UA (test code = 365) Negative Negative Ketones, UA (test code = 2514-8) Trace Negative A Bilirubin, UA (test code = 96438-8) Negative Negative Blood, UA (test code = 17929-7) Trace Negative A Nitrite, UA (test code = 5802-4) Negative Negative Leukocytes, UA (test code = 5799-2) Negative Negative Urobilinogen, UA (test code = 18640-1) 0.2 0.2-1.0 Specimen Source (test code = 2795) LYNDSAY (test code = LYNDSAY) Service Plumber ID - [auto]Service Plumber ID - tech Lab Interpretation (test code = 74773-7) [facility] Bkaubfibfrm1031-71-59 03:58:52* Test Item Value Reference Range Interpretation Comme nts Color, UA (test code = 5778-6) Light Yellow Clarity, UA (test code = 5767-9) Hazy Specific [place], UA (test code = 5811-5) 1.017 1.001-1.035 pH, UA (test code = 5803-2) 6.0 5.0-8.0 Protein, UA (test code = 14168-8) 10 mg/dL Negative A Glucose, UA (test code = 365) Negative Negative Ketones, UA (test code = 2514-8) Trace Negative A Bilirubin, UA (test code = 00036-6) Negative Negative Blood, UA (test code = 07573-3) Trace Negative A Nitrite, UA (test code = 5802-4) Negative Negative Leukocytes, UA (test code = 5799-2) Negative Negative Urobilinogen, UA (test code = 45359-5) 0.2 0.2-1.0 Specimen Source (test code = 2795) LYNDSAY (test code = LYNDSAY) Service Plumber ID - [auto]Service Plumber ID - tech Lab Interpretation (test code = 17485-6) [facility] Qughfciipvl2395-56-32 03:58:52* Test Item Value Reference Range Interpretation Comme nts Color, UA (test code = 5778-6) Light Yellow Clarity, UA (test code = 5767-9) Hazy Specific [place], UA (test code = 5811-5) 1.017 1.001-1.035 pH, UA (test code = 5803-2) 6.0 5.0-8.0 Protein, UA (test code = 41209-6) 10 mg/dL Negative A Glucose, UA (test code = 365) Negative Negative Ketones, UA (test code = 2514-8) Trace Negative A Bilirubin, UA (test code = 36680-3) Negative Negative Blood, UA (test code = 49217-9) Trace Negative A Nitrite, UA (test code = 5802-4) Negative Negative Leukocytes, UA (test code = 5799-2) Negative Negative Urobilinogen, UA (test code = 50250-0) 0.2 0.2-1.0 Specimen Source (test code = 2795) LYNDSAY (test code = LYNDSAY) Service Plumber ID - [auto]Service Plumber ID - tech Lab Interpretation (test code = 87748-8) [facility] Dnxthfvmezd3128-06-18 03:58:52* Test Item Value Reference Range Interpretation Comme nts Color, UA (test code = 5778-6) Light Yellow Clarity, UA (test code = 5767-9) Hazy Specific [place], UA (test code = 5811-5) 1.017 1.001-1.035 pH, UA (test code = 5803-2) 6.0 5.0-8.0 Protein, UA (test code = 87013-1) 10 mg/dL Negative A Glucose, UA (test code = 365) Negative Negative Ketones, UA (test code = 2514-8) Trace Negative A Bilirubin, UA (test code = 54898-9) Negative Negative Blood, UA (test code = 85072-6) Trace Negative A Nitrite, UA (test code = 5802-4) Negative Negative Leukocytes, UA (test code = 5799-2) Negative Negative Urobilinogen, UA (test code = 85389-8) 0.2 0.2-1.0 Specimen Source (test code = 2795) LYNDSAY (test code = LYNDSAY) Service Plumber ID - [auto]Service Plumber ID - tech Lab Interpretation (test code = 13238-4) [facility] Mktxurrsthq5333-23-38 03:58:52* Test Item Value Reference Range Interpretation Comme nts Color, UA (test code = 5778-6) Light Yellow Clarity, UA (test code = 5767-9) Hazy Specific [place], UA (test code = 5811-5) 1.017 1.001-1.035 pH, UA (test code = 5803-2) 6.0 5.0-8.0 Protein, UA (test code = 85657-2) 10 mg/dL Negative A Glucose, UA (test code = 365) Negative Negative Ketones, UA (test code = 2514-8) Trace Negative A Bilirubin, UA (test code = 83207-7) Negative Negative Blood, UA (test code = 22401-2) Trace Negative A Nitrite, UA (test code = 5802-4) Negative Negative Leukocytes, UA (test code = 5799-2) Negative Negative Urobilinogen, UA (test code = 40553-0) 0.2 0.2-1.0 Specimen Source (test code = 2795) LYNDSAY (test code = LYNDSAY) Service Plumber ID - [auto]Service Plumber ID - tech Lab Interpretation (test code = 96592-6) [facility] [id number] 03:58:52* Test Item Value Reference Range Interpretation [...] 0.2 0.2-1.0 SOURCE(BEAKER) (test code = 2795) Service Plumber ID - [auto]Service Plumber ID - techCBC W/PLT COUNT & AUTO [...] 2801) 0.70 % 0.00-1.00 Rapid drug screen, [id number] 02:20:15* Test Item Value Reference Range Interpretation Comme nts Barbiturate Screen (test code = 10236-2) Negative Negative Benzodiazepine Screen (test code = 44146-1) Negative Negative Cocaine (Metab.) Screen (test code = 3397-7) Positive Negative A Methadone Screen (test code = 65222-0) Negative Negative Opiate Screen (test code = 31202-2) Negative Negative Cannabinoid Screen (test code = 08385-0) Positive Negative A Amph/Methamph Screen (test code = 12137-0) Negative Negative Phencyclidine Screen (test code = 11782-9) Negative Negative pH, UA (test code = 5803-2) 6.0 5.0-8.0 LYNDSAY (test code = LYNDSAY) DRUG CUTOFF CONC.Cocaine 300 ng/mL Cannabinoid 50 ng/mLBenzodiazepine 200 ng/mLBarbiturate 200 ng/mLPhencyclidine 25 ng/mLOpiate 300 ng/mLMethadone 300 ng/mLAmphetamine/ 1000 ng/mL Methamphetamine This assay provides an unconfirmed qualitative test result for the clinical management of patients in emergency situations. Chain of custody not maintained. Some zyfq-ftk-fflltey medications, as well as adulterants, may cause inaccurate results. Clinical correlation should be applied. A more comprehensive drug screen or confirmation of a detected drug may be performed upon request.Service Plumber ID - ADMIN Lab Interpretation (test code = 05094-7) [facility] [id number] 02:20:15* Test Item Value Reference Range Interpretation Comme nts Barbiturate Screen (test code = 84812-6) Negative Negative Benzodiazepine Screen (test code = 55100-5) Negative Negative Cocaine (Metab.) Screen (test code = 3397-7) Positive Negative A Methadone Screen (test code = 42581-4) Negative Negative Opiate Screen (test code = 47134-2) Negative Negative Cannabinoid Screen (test code = 96776-4) Positive Negative A Amph/Methamph Screen (test code = 14646-8) Negative Negative Phencyclidine Screen (test code = 21221-5) Negative Negative pH, UA (test code = 5803-2) 6.0 5.0-8.0 LYNDSAY (test code = LYNDSAY) DRUG CUTOFF CONC.Cocaine 300 ng/mL Cannabinoid 50 ng/mLBenzodiazepine 200 ng/mLBarbiturate 200 ng/mLPhencyclidine 25 ng/mLOpiate 300 ng/mLMethadone 300 ng/mLAmphetamine/ 1000 ng/mL Methamphetamine This assay provides an unconfirmed qualitative test result for the clinical management of patients in emergency situations. Chain of custody not maintained. Some rzvg-cya-ycwurop medications, as well as adulterants, may cause inaccurate results. Clinical correlation should be applied. A more comprehensive drug screen or confirmation of a detected drug may be performed upon request.Service Plumber ID - ADMIN Lab Interpretation (test code = 90325-4) Abnormal [facility] drug screen, [id number] 02:20:15* Test Item Value Reference Range Interpretation Comme nts Barbiturate Screen (test code = 84872-1) Negative Negative Benzodiazepine Screen (test code = 18429-5) Negative Negative Cocaine (Metab.) Screen (test code = 3397-7) Positive Negative A Methadone Screen (test code = 58091-0) Negative Negative Opiate Screen (test code = 86567-2) Negative Negative Cannabinoid Screen (test code = 75292-6) Positive Negative A Amph/Methamph Screen (test code = 94537-0) Negative Negative Phencyclidine Screen (test code = 66060-9) Negative Negative pH, UA (test code = 5803-2) 6.0 5.0-8.0 LYNDSAY (test code = LYNDSAY) DRUG CUTOFF CONC.Cocaine 300 ng/mL Cannabinoid 50 ng/mLBenzodiazepine 200 ng/mLBarbiturate 200 ng/mLPhencyclidine 25 ng/mLOpiate 300 ng/mLMethadone 300 ng/mLAmphetamine/ 1000 ng/mL Methamphetamine This assay provides an unconfirmed qualitative test result for the clinical management of patients in emergency situations. Chain of custody not maintained. Some oajr-nvn-xcnpelr medications, as well as adulterants, may cause inaccurate results. Clinical correlation should be applied. A more comprehensive drug screen or confirmation of a detected drug may be performed upon request.Service Plumber ID - ADMIN Lab Interpretation (test code = 71676-6) [facility], [id number] 02:20:15* Test Item Value Reference Range Interpretation Comme nts Barbiturate Screen (test code = 81462-9) Negative Negative Benzodiazepine Screen (test code = 18441-9) Negative Negative Cocaine (Metab.) Screen (test code = 3397-7) Positive Negative A Methadone Screen (test code = 81046-8) Negative Negative Opiate Screen (test code = 79568-5) Negative Negative Cannabinoid Screen (test code = 54885-5) Positive Negative A Amph/Methamph Screen (test code = 53249-3) Negative Negative Phencyclidine Screen (test code = 05161-3) Negative Negative pH, UA (test code = 5803-2) 6.0 5.0-8.0 LYNDSAY (test code = LYNDSAY) DRUG CUTOFF CONC.Cocaine 300 ng/mL Cannabinoid 50 ng/mLBenzodiazepine 200 ng/mLBarbiturate 200 ng/mLPhencyclidine 25 ng/mLOpiate 300 ng/mLMethadone 300 ng/mLAmphetamine/ 1000 ng/mL Methamphetamine This assay provides an unconfirmed qualitative test result for the clinical management of patients in emergency situations. Chain of custody not maintained. Some gxcz-sgc-lzrnwir medications, as well as adulterants, may cause inaccurate results. Clinical correlation should be applied. A more comprehensive drug screen or confirmation of a detected drug may be performed upon request.Service Plumber ID - ADMIN Lab Interpretation (test code = 61577-9) [facility] [id number] 02:20:15* Test Item Value Reference Range Interpretation Comme nts Barbiturate Screen (test code = 46134-3) Negative Negative Benzodiazepine Screen (test code = 51547-2) Negative Negative Cocaine (Metab.) Screen (test code = 3397-7) Positive Negative A Methadone Screen (test code = 14036-5) Negative Negative Opiate Screen (test code = 85896-2) Negative Negative Cannabinoid Screen (test code = 77783-8) Positive Negative A Amph/Methamph Screen (test code = 15739-9) Negative Negative Phencyclidine Screen (test code = 67817-4) Negative Negative pH, UA (test code = 5803-2) 6.0 5.0-8.0 LYNDSAY (test code = LYNDSAY) DRUG CUTOFF CONC.Cocaine 300 ng/mL Cannabinoid 50 ng/mLBenzodiazepine 200 ng/mLBarbiturate 200 ng/mLPhencyclidine 25 ng/mLOpiate 300 ng/mLMethadone 300 ng/mLAmphetamine/ 1000 ng/mL Methamphetamine This assay provides an unconfirmed qualitative test result for the clinical management of patients in emergency situations. Chain of custody not maintained. Some gpdy-kte-ocowzer medications, as well as adulterants, may cause inaccurate results. Clinical correlation should be applied. A more comprehensive drug screen or confirmation of a detected drug may be performed upon request.Service Plumber ID - ADMIN Lab Interpretation (test code = 80195-1) [facility], [id number] 02:20:15* Test Item Value Reference Range Interpretation Comme nts Barbiturate Screen (test code = 80344-0) Negative Negative Benzodiazepine Screen (test code = 77906-5) Negative Negative Cocaine (Metab.) Screen (test code = 3397-7) Positive Negative A Methadone Screen (test code = 81830-2) Negative Negative Opiate Screen (test code = 46636-1) Negative Negative Cannabinoid Screen (test code = 83828-8) Positive Negative A Amph/Methamph Screen (test code = 96491-7) Negative Negative Phencyclidine Screen (test code = 10892-7) Negative Negative pH, UA (test code = 5803-2) 6.0 5.0-8.0 LYNDSAY (test code = LYNDSAY) DRUG CUTOFF CONC.Cocaine 300 ng/mL Cannabinoid 50 ng/mLBenzodiazepine 200 ng/mLBarbiturate 200 ng/mLPhencyclidine 25 ng/mLOpiate 300 ng/mLMethadone 300 ng/mLAmphetamine/ 1000 ng/mL Methamphetamine This assay provides an unconfirmed qualitative test result for the clinical management of patients in emergency situations. Chain of custody not maintained. Some dzfh-vew-fgruris medications, as well as adulterants, may cause inaccurate results. Clinical correlation should be applied. A more comprehensive drug screen or confirmation of a detected drug may be performed upon request.Service Plumber ID - ADMIN Lab Interpretation (test code = 36536-1) [facility], [id number] 02:20:15* Test Item Value Reference Range Interpretation Comme nts Barbiturate Screen (test code = 88224-5) Negative Negative Benzodiazepine Screen (test code = 70862-3) Negative Negative Cocaine (Metab.) Screen (test code = 3397-7) Positive Negative A Methadone Screen (test code = 06496-1) Negative Negative Opiate Screen (test code = 42117-1) Negative Negative Cannabinoid Screen (test code = 78106-5) Positive Negative A Amph/Methamph Screen (test code = 38682-3) Negative Negative Phencyclidine Screen (test code = 62392-8) Negative Negative pH, UA (test code = 5803-2) 6.0 5.0-8.0 LYNDSAY (test code = LYNDSAY) DRUG CUTOFF CONC.Cocaine 300 ng/mL Cannabinoid 50 ng/mLBenzodiazepine 200 ng/mLBarbiturate 200 ng/mLPhencyclidine 25 ng/mLOpiate 300 ng/mLMethadone 300 ng/mLAmphetamine/ 1000 ng/mL Methamphetamine This assay provides an unconfirmed qualitative test result for the clinical management of patients in emergency situations. Chain of custody not maintained. Some xfkx-azp-zcjentt medications, as well as adulterants, may cause inaccurate results. Clinical correlation should be applied. A more comprehensive drug screen or confirmation of a detected drug may be performed upon request.Service Plumber ID - ADMIN Lab Interpretation (test code = 69682-7) [facility], [id number] 02:20:15* Test Item Value Reference Range Interpretation Comme nts Barbiturate Screen (test code = 75523-2) Negative Negative Benzodiazepine Screen (test code = 57224-2) Negative Negative Cocaine (Metab.) Screen (test code = 3397-7) Positive Negative A Methadone Screen (test code = 82445-7) Negative Negative Opiate Screen (test code = 80104-9) Negative Negative Cannabinoid Screen (test code = 17402-7) Positive Negative A Amph/Methamph Screen (test code = 55903-7) Negative Negative Phencyclidine Screen (test code = 01688-1) Negative Negative pH, UA (test code = 5803-2) 6.0 5.0-8.0 LYNDSAY (test code = LYNDSAY) DRUG CUTOFF CONC.Cocaine 300 ng/mL Cannabinoid 50 ng/mLBenzodiazepine 200 ng/mLBarbiturate 200 ng/mLPhencyclidine 25 ng/mLOpiate 300 ng/mLMethadone 300 ng/mLAmphetamine/ 1000 ng/mL Methamphetamine This assay provides an unconfirmed qualitative test result for the clinical management of patients in emergency situations. Chain of custody not maintained. Some xugg-qhm-cnjhdet medications, as well as adulterants, may cause inaccurate results. Clinical correlation should be applied. A more comprehensive drug screen or confirmation of a detected drug may be performed upon request.Service Plumber ID - ADMIN Lab Interpretation (test code = 04810-6) [facility] [id number] 02:20:15* Test Item Value Reference Range Interpretation Comme nts Barbiturate Screen (test code = 40274-2) Negative Negative Benzodiazepine Screen (test code = 59276-8) Negative Negative Cocaine (Metab.) Screen (test code = 3397-7) Positive Negative A Methadone Screen (test code = 62528-4) Negative Negative Opiate Screen (test code = 28165-1) Negative Negative Cannabinoid Screen (test code = 12480-3) Positive Negative A Amph/Methamph Screen (test code = 55221-4) Negative Negative Phencyclidine Screen (test code = 98557-1) Negative Negative pH, UA (test code = 5803-2) 6.0 5.0-8.0 LYNDSAY (test code = LYNDSAY) DRUG CUTOFF CONC.Cocaine 300 ng/mL Cannabinoid 50 ng/mLBenzodiazepine 200 ng/mLBarbiturate 200 ng/mLPhencyclidine 25 ng/mLOpiate 300 ng/mLMethadone 300 ng/mLAmphetamine/ 1000 ng/mL Methamphetamine This assay provides an unconfirmed qualitative test result for the clinical management of patients in emergency situations. Chain of custody not maintained. Some lsfe-mxq-xuyzonb medications, as well as adulterants, may cause inaccurate results. Clinical correlation should be applied. A more comprehensive drug screen or confirmation of a detected drug may be performed upon request.Service Plumber ID - ADMIN Lab Interpretation (test code = 96144-1) [facility], [id number] 02:20:15* Test Item Value Reference Range Interpretation Comme nts Barbiturate Screen (test code = 36271-8) Negative Negative Benzodiazepine Screen (test code = 83913-2) Negative Negative Cocaine (Metab.) Screen (test code = 3397-7) Positive Negative A Methadone Screen (test code = 70693-2) Negative Negative Opiate Screen (test code = 35584-4) Negative Negative Cannabinoid Screen (test code = 36763-6) Positive Negative A Amph/Methamph Screen (test code = 91742-0) Negative Negative Phencyclidine Screen (test code = 33748-3) Negative Negative pH, UA (test code = 5803-2) 6.0 5.0-8.0 LYNDSAY (test code = LYNDSAY) DRUG CUTOFF CONC.Cocaine 300 ng/mL Cannabinoid 50 ng/mLBenzodiazepine 200 ng/mLBarbiturate 200 ng/mLPhencyclidine 25 ng/mLOpiate 300 ng/mLMethadone 300 ng/mLAmphetamine/ 1000 ng/mL Methamphetamine This assay provides an unconfirmed qualitative test result for the clinical management of patients in emergency situations. Chain of custody not maintained. Some motk-vag-ftcrijl medications, as well as adulterants, may cause inaccurate results. Clinical correlation should be applied. A more comprehensive drug screen or confirmation of a detected drug may be performed upon request.Service Plumber ID - ADMIN Lab Interpretation (test code = 03314-1) [facility], [id number] 02:20:15* Test Item Value Reference Range Interpretation Comme nts Barbiturate Screen (test code = 94615-8) Negative Negative Benzodiazepine Screen (test code = 80164-5) Negative Negative Cocaine (Metab.) Screen (test code = 3397-7) Positive Negative A Methadone Screen (test code = 57590-9) Negative Negative Opiate Screen (test code = 04974-7) Negative Negative Cannabinoid Screen (test code = 59536-0) Positive Negative A Amph/Methamph Screen (test code = 41926-4) Negative Negative Phencyclidine Screen (test code = 33632-1) Negative Negative pH, UA (test code = 5803-2) 6.0 5.0-8.0 LYNDSAY (test code = LYNDSAY) DRUG CUTOFF CONC.Cocaine 300 ng/mL Cannabinoid 50 ng/mLBenzodiazepine 200 ng/mLBarbiturate 200 ng/mLPhencyclidine 25 ng/mLOpiate 300 ng/mLMethadone 300 ng/mLAmphetamine/ 1000 ng/mL Methamphetamine This assay provides an unconfirmed qualitative test result for the clinical management of patients in emergency situations. Chain of custody not maintained. Some gkam-kan-npfafkd medications, as well as adulterants, may cause inaccurate results. Clinical correlation should be applied. A more comprehensive drug screen or confirmation of a detected drug may be performed upon request.Service Plumber ID - ADMIN Lab Interpretation (test code = 03011-6) [facility], [id number] 02:20:15* Test Item Value Reference Range Interpretation Comme nts Barbiturate Screen (test code = 41563-7) Negative Negative Benzodiazepine Screen (test code = 82518-3) Negative Negative Cocaine (Metab.) Screen (test code = 3397-7) Positive Negative A Methadone Screen (test code = 89211-2) Negative Negative Opiate Screen (test code = 55227-6) Negative Negative Cannabinoid Screen (test code = 98384-1) Positive Negative A Amph/Methamph Screen (test code = 42611-0) Negative Negative Phencyclidine Screen (test code = 07594-5) Negative Negative pH, UA (test code = 5803-2) 6.0 5.0-8.0 LYNDSAY (test code = LYNDSAY) DRUG CUTOFF CONC.Cocaine 300 ng/mL Cannabinoid 50 ng/mLBenzodiazepine 200 ng/mLBarbiturate 200 ng/mLPhencyclidine 25 ng/mLOpiate 300 ng/mLMethadone 300 ng/mLAmphetamine/ 1000 ng/mL Methamphetamine This assay provides an unconfirmed qualitative test result for the clinical management of patients in emergency situations. Chain of custody not maintained. Some alqt-uje-elakkyi medications, as well as adulterants, may cause inaccurate results. Clinical correlation should be applied. A more comprehensive drug screen or confirmation of a detected drug may be performed upon request.Service Plumber ID - ADMIN Lab Interpretation (test code = 42893-8) [facility], [id number] 02:20:15* Test Item Value Reference Range Interpretation Comme nts Barbiturate Screen (test code = 07868-7) Negative Negative Benzodiazepine Screen (test code = 72994-6) Negative Negative Cocaine (Metab.) Screen (test code = 3397-7) Positive Negative A Methadone Screen (test code = 12681-4) Negative Negative Opiate Screen (test code = 72786-9) Negative Negative Cannabinoid Screen (test code = 39908-0) Positive Negative A Amph/Methamph Screen (test code = 37612-3) Negative Negative Phencyclidine Screen (test code = 46395-9) Negative Negative pH, UA (test code = 5803-2) 6.0 5.0-8.0 LYNDSAY (test code = LYNDSAY) DRUG CUTOFF CONC.Cocaine 300 ng/mL Cannabinoid 50 ng/mLBenzodiazepine 200 ng/mLBarbiturate 200 ng/mLPhencyclidine 25 ng/mLOpiate 300 ng/mLMethadone 300 ng/mLAmphetamine/ 1000 ng/mL Methamphetamine This assay provides an unconfirmed qualitative test result for the clinical management of patients in emergency situations. Chain of custody not maintained. Some ewaz-kkf-kavjsoz medications, as well as adulterants, may cause inaccurate results. Clinical correlation should be applied. A more comprehensive drug screen or confirmation of a detected drug may be performed upon request.Service Plumber ID - ADMIN Lab Interpretation (test code = 61064-8) [facility], [id number] 02:20:15* Test Item Value Reference Range Interpretation Comme nts Barbiturate Screen (test code = 11218-1) Negative Negative Benzodiazepine Screen (test code = 46520-6) Negative Negative Cocaine (Metab.) Screen (test code = 3397-7) Positive Negative A Methadone Screen (test code = 17767-0) Negative Negative Opiate Screen (test code = 03664-5) Negative Negative Cannabinoid Screen (test code = 34034-3) Positive Negative A Amph/Methamph Screen (test code = 88344-3) Negative Negative Phencyclidine Screen (test code = 13484-0) Negative Negative pH, UA (test code = 5803-2) 6.0 5.0-8.0 LYNDSAY (test code = LYNDSAY) DRUG CUTOFF CONC.Cocaine 300 ng/mL Cannabinoid 50 ng/mLBenzodiazepine 200 ng/mLBarbiturate 200 ng/mLPhencyclidine 25 ng/mLOpiate 300 ng/mLMethadone 300 ng/mLAmphetamine/ 1000 ng/mL Methamphetamine This assay provides an unconfirmed qualitative test result for the clinical management of patients in emergency situations. Chain of custody not maintained. Some lnaj-toq-qmidkey medications, as well as adulterants, may cause inaccurate results. Clinical correlation should be applied. A more comprehensive drug screen or confirmation of a detected drug may be performed upon request.Service Plumber ID - ADMIN Lab Interpretation (test code = 27792-5) [facility], [id number] 02:20:15* Test Item Value Reference Range Interpretation Comme nts Barbiturate Screen (test code = 24736-2) Negative Negative Benzodiazepine Screen (test code = 79645-0) Negative Negative Cocaine (Metab.) Screen (test code = 3397-7) Positive Negative A Methadone Screen (test code = 33376-8) Negative Negative Opiate Screen (test code = 20275-2) Negative Negative Cannabinoid Screen (test code = 36091-5) Positive Negative A Amph/Methamph Screen (test code = 52965-4) Negative Negative Phencyclidine Screen (test code = 89956-8) Negative Negative pH, UA (test code = 5803-2) 6.0 5.0-8.0 LYNDSAY (test code = LYNDSAY) DRUG CUTOFF CONC.Cocaine 300 ng/mL Cannabinoid 50 ng/mLBenzodiazepine 200 ng/mLBarbiturate 200 ng/mLPhencyclidine 25 ng/mLOpiate 300 ng/mLMethadone 300 ng/mLAmphetamine/ 1000 ng/mL Methamphetamine This assay provides an unconfirmed qualitative test result for the clinical management of patients in emergency situations. Chain of custody not maintained. Some cmbj-lzb-losfejq medications, as well as adulterants, may cause inaccurate results. Clinical correlation should be applied. A more comprehensive drug screen or confirmation of a detected drug may be performed upon request.Service Plumber ID - ADMIN Lab Interpretation (test code = 13800-4) [facility], [id number] 02:20:15* Test Item Value Reference Range Interpretation Comme nts Barbiturate Screen (test code = 27060-5) Negative Negative Benzodiazepine Screen (test code = 86463-6) Negative Negative Cocaine (Metab.) Screen (test code = 3397-7) Positive Negative A Methadone Screen (test code = 78295-7) Negative Negative Opiate Screen (test code = 67955-6) Negative Negative Cannabinoid Screen (test code = 27883-1) Positive Negative A Amph/Methamph Screen (test code = 34725-5) Negative Negative Phencyclidine Screen (test code = 98927-2) Negative Negative pH, UA (test code = 5803-2) 6.0 5.0-8.0 LYNDSAY (test code = LYNDSAY) DRUG CUTOFF CONC.Cocaine 300 ng/mL Cannabinoid 50 ng/mLBenzodiazepine 200 ng/mLBarbiturate 200 ng/mLPhencyclidine 25 ng/mLOpiate 300 ng/mLMethadone 300 ng/mLAmphetamine/ 1000 ng/mL Methamphetamine This assay provides an unconfirmed qualitative test result for the clinical management of patients in emergency situations. Chain of custody not maintained. Some djvj-kcs-zaknfce medications, as well as adulterants, may cause inaccurate results. Clinical correlation should be applied. A more comprehensive drug screen or confirmation of a detected drug may be performed upon request.Service Plumber ID - ADMIN Lab Interpretation (test code = 42735-2) [facility], [id number] 02:20:15* Test Item Value Reference Range Interpretation Comme nts Barbiturate Screen (test code = 61498-9) Negative Negative Benzodiazepine Screen (test code = 44047-5) Negative Negative Cocaine (Metab.) Screen (test code = 3397-7) Positive Negative A Methadone Screen (test code = 27756-3) Negative Negative Opiate Screen (test code = 93492-3) Negative Negative Cannabinoid Screen (test code = 24445-1) Positive Negative A Amph/Methamph Screen (test code = 49591-3) Negative Negative Phencyclidine Screen (test code = 91552-8) Negative Negative pH, UA (test code = 5803-2) 6.0 5.0-8.0 LYNDSAY (test code = LYNDSAY) DRUG CUTOFF CONC.Cocaine 300 ng/mL Cannabinoid 50 ng/mLBenzodiazepine 200 ng/mLBarbiturate 200 ng/mLPhencyclidine 25 ng/mLOpiate 300 ng/mLMethadone 300 ng/mLAmphetamine/ 1000 ng/mL Methamphetamine This assay provides an unconfirmed qualitative test result for the clinical management of patients in emergency situations. Chain of custody not maintained. Some gzkr-ams-hrwleti medications, as well as adulterants, may cause inaccurate results. Clinical correlation should be applied. A more comprehensive drug screen or confirmation of a detected drug may be performed upon request.Service Plumber ID - ADMIN Lab Interpretation (test code = 66806-0) [facility], [id number] 02:20:15* Test Item Value Reference Range Interpretation Comme nts Barbiturate Screen (test code = 07977-4) Negative Negative Benzodiazepine Screen (test code = 54525-4) Negative Negative Cocaine (Metab.) Screen (test code = 3397-7) Positive Negative A Methadone Screen (test code = 72001-5) Negative Negative Opiate Screen (test code = 79392-6) Negative Negative Cannabinoid Screen (test code = 90351-3) Positive Negative A Amph/Methamph Screen (test code = 32608-1) Negative Negative Phencyclidine Screen (test code = 56761-8) Negative Negative pH, UA (test code = 5803-2) 6.0 5.0-8.0 LYNDSAY (test code = LYNDSAY) DRUG CUTOFF CONC.Cocaine 300 ng/mL Cannabinoid 50 ng/mLBenzodiazepine 200 ng/mLBarbiturate 200 ng/mLPhencyclidine 25 ng/mLOpiate 300 ng/mLMethadone 300 ng/mLAmphetamine/ 1000 ng/mL Methamphetamine This assay provides an unconfirmed qualitative test result for the clinical management of patients in emergency situations. Chain of custody not maintained. Some ejxw-zww-jdebrqn medications, as well as adulterants, may cause inaccurate results. Clinical correlation should be applied. A more comprehensive drug screen or confirmation of a detected drug may be performed upon request.Service Plumber ID - ADMIN Lab Interpretation (test code = 59978-5) [facility], [id number] 02:20:15* Test Item Value Reference Range Interpretation Comme nts Barbiturate Screen (test code = 56394-2) Negative Negative Benzodiazepine Screen (test code = 27941-3) Negative Negative Cocaine (Metab.) Screen (test code = 3397-7) Positive Negative A Methadone Screen (test code = 85186-9) Negative Negative Opiate Screen (test code = 70831-5) Negative Negative Cannabinoid Screen (test code = 66630-8) Positive Negative A Amph/Methamph Screen (test code = 32768-2) Negative Negative Phencyclidine Screen (test code = 44795-6) Negative Negative pH, UA (test code = 5803-2) 6.0 5.0-8.0 LYNDSAY (test code = LYNDSAY) DRUG CUTOFF CONC.Cocaine 300 ng/mL Cannabinoid 50 ng/mLBenzodiazepine 200 ng/mLBarbiturate 200 ng/mLPhencyclidine 25 ng/mLOpiate 300 ng/mLMethadone 300 ng/mLAmphetamine/ 1000 ng/mL Methamphetamine This assay provides an unconfirmed qualitative test result for the clinical management of patients in emergency situations. Chain of custody not maintained. Some waiv-bak-oqxiipk medications, as well as adulterants, may cause inaccurate results. Clinical correlation should be applied. A more comprehensive drug screen or confirmation of a detected drug may be performed upon request.Service Plumber ID - ADMIN Lab Interpretation (test code = 20740-3) [facility] [id number] 02:20:15* Test Item Value Reference Range Interpretation [...] situations. Chain of custody not maintained. Some xxux-iyx-rnjxfki medications, as well as adulterants, may cause inaccurate results. Clinical correlation should be applied. A more comprehensive drug screen or confirmation of a detected drug may be performed upon request.Service Plumber ID - ADMINB-TYPE NATRIURETIC FACTOR (BNP)2023-09-04 02:11:53* Test Item Value Reference Range Interpretation Comme nts B-TYPE NATRIURETIC PEPTIDE (BEAKER) (test code = 700) 1761 pg/mL 0-100 H Service Plumber ID - ADMINLACTIC ACID, [id number] 02:10:37* Test Item Value Reference Range Interpretation Comme nts LACTATE BLOOD VENOUS (2) (BEAKER) (test code = 2872) 1.04 mmol/L 0.50-2.00 Specimen slightl y hemolyzed Service Plumber ID - [id number] 02:04:37* Test Item Value Reference Range Interpretation Comme nts PHOSPHORUS (BEAKER) (test code = 604) 4.2 mg/dL 2.3-4.7 Specimen sligh tly hemolyzed Service Plumber ID - ADMINCOMPREHENSIVE METABOLIC [id number] 02:04:37* Test Item Value Reference Range Interpretation [...] GFR is not applicable for dialysis patients Service Plumber ID - [id number] 02:04:36* Test Item Value Reference Range Interpretation Comme nts MAGNESIUM (BEAKER) (test code = 627) 2.1 mg/dL 1.6-2.6 Specimen sligh tly hemolyzed Service Plumber ID - [id number] 01:45:13* Test Item Value Reference Range Interpretation [...] code = 760) 28.5 seconds 22.5-36.0 PROTHROMBIN TIME/[id number] 01:42:15* Test Item Value Reference Range Interpretation Comme nts PROTIME (LATOYA) (test code = 759) 15.8 seconds 11.9-14.2 H INR (BEAKER) (test code = 370) 1.25 <=5.90 RECOMMENDED COUMADIN/WARFARIN INR THERAPY RANGESSTANDARD DOSE: 2.0 - 3.0 Includes: PROPHYLAXIS for venous thrombosis, systemic embolization; TREATMENT for venous thrombosis and/or pulmonary embolus.HIGH RISK: Target INR is 2.5-3.5 for patients with mechanical heart valves.Lactic Acid Whole [id number] 20:51:22* Test Item Value Reference Range Interpretation Comme nts LACTIC ACID (test code = 1104166924) 1.56 mmol/L 0.50-2.20 Lab Interpretation (test cod e = 16517-4) [id number] 07:00:09* Test Item Value Reference Range Interpretation Comme nts CULTURE (LINNEAAKER) (test code = 1095) No growth in 5 days BLOOD [id number] 07:00:09* Test Item Value Reference Range Interpretation Comme nts CULTURE (BEAKER) (test code = 1095) No growth in 5 days T-SPOT(R).[id number] 18:35:00* Test Item Value Reference Range Interpretation Comme nts T-SPOT.TB (test code = 3085105) Negative SeeBelow Normal Value: Ne gativeA negative [...] CORRECTED FOR NEG CONTROL (test code = 2892821) 1 PANEL B SPOT COUNT CORRECTED FOR NEG CONTROL (test code = 0164904) 0 NEGATIVE CONTROL (test code = 6980824) Passed POSITIVE CONTROL (test code = 8682046) Passed LYNDSAY (test code = LYNDSAY) [id number] [facility][id number] 18:35:00* Test Item Value Reference Range Interpretation [...] CORRECTED FOR NEG CONTROL (test code = 6367763) 0 NEGATIVE CONTROL (test code = 4834245) Passed POSITIVE CONTROL (test code = 4891883) Passed LYNDSAY (test code = LYNDSAY) [id number] [facility]).[id number] 18:35:00* Test Item Value Reference Range Interpretation Comme nts T-SPOT.TB (test code = 8116097) Negative SeeBelow Normal Value: Ne gativeA negative [...] 20150905) 0 NEGATIVE CONTROL (test code = 6579428) Passed POSITIVE CONTROL (test code = 20150907) Passed LYNDSAY (test code = LYNDSAY) [id number] [facility]).[id number] 18:35:00* Test Item Value Reference Range Interpretation [...] 20150905) 0 NEGATIVE CONTROL (test code = 6592002) Passed POSITIVE CONTROL (test code = 3585140) Passed LYNDSAY (test code = LYNDSAY) [id number] [facility]).[id number] 18:35:00* Test Item Value Reference Range Interpretation Comme nts T-SPOT.TB (test code = 6036181) Negative SeeBelow Normal Value: Ne gativeA negative [...] CORRECTED FOR NEG CONTROL (test code = 5957316) 1 PANEL B SPOT COUNT CORRECTED FOR NEG CONTROL (test code = 9677876) 0 NEGATIVE CONTROL (test code = 5290512) Passed POSITIVE CONTROL (test code = 0922192) Passed LYNDSAY (test code = LYNDSAY) [id number] [facility]).[id number] 18:35:00* Test Item Value Reference Range Interpretation Comme [facility] T-SPOT.TB (test code = 5800283) Negative SeeBelow Normal Value: Ne gativeA negative [...] CORRECTED FOR NEG CONTROL (test code = 1266373) 1 PANEL B SPOT COUNT CORRECTED FOR NEG CONTROL (test code = 3518398) 0 NEGATIVE CONTROL (test code = 6928574) Passed POSITIVE CONTROL (test code = 0172229) Passed LYDNSAY (test code = LYNDSAY) [id number] [facility]).[id number] 18:35:00* Test Item Value Reference Range Interpretation [...] CORRECTED FOR NEG CONTROL (test code = 3583942) 0 NEGATIVE CONTROL (test code = 8190821) Passed POSITIVE CONTROL (test code = 5362907) Passed LYNDSAY (test code = LYNDSAY) [id number] [facility]).[id number] 18:35:00* Test Item Value Reference Range Interpretation [...] 20150905) 0 NEGATIVE CONTROL (test code = 0563936) Passed POSITIVE CONTROL (test code = 20150907) Passed LYNDSAY (test code = LYNDSAY) [id number] [facility]).[id number] 18:35:00* Test Item Value Reference Range Interpretation [...] 20150905) 0 NEGATIVE CONTROL (test code = 0668681) Passed POSITIVE CONTROL (test code = 8927370) Passed LYNDSAY (test code = LYNDSAY) [id number] [facility]).[id number] 18:35:00* Test Item Value Reference Range Interpretation Comme nts T-SPOT.TB (test code = 9591789) Negative SeeBelow Normal Value: Ne gativeA negative [...] CORRECTED FOR NEG CONTROL (test code = 7600841) 1 PANEL B SPOT COUNT CORRECTED FOR NEG CONTROL (test code = 8802405) 0 NEGATIVE CONTROL (test code = 1104118) Passed POSITIVE CONTROL (test code = 0703612) Passed LYNDSAY (test code = LYNDSAY) [id number] [facility][id number] [facility]:35:00* Test Item Value Reference Range Interpretation Comme [facility] T-SPOT.TB (test code = 7762897) Negative SeeBelow Normal Value: Ne gativeA negative [...] CORRECTED FOR NEG CONTROL (test code = 4689555) 0 NEGATIVE CONTROL (test code = 6817622) Passed POSITIVE CONTROL (test code = 3257819) Passed LYNDSAY (test code = LYNDSAY) [id number] [facility][id number] 18:35:00* Test Item Value Reference Range Interpretation [...] 20150905) 0 NEGATIVE CONTROL (test code = 3315025) Passed POSITIVE CONTROL (test code = 9353777) Passed LYNDSAY (test code = LYNDSAY) [id number] [facility][id number] 18:35:00* Test Item Value Reference Range Interpretation Comme nts T-SPOT.TB (test code = 3616365) Negative SeeBelow Normal Value: Ne gativeA negative [...] 20150905) 0 NEGATIVE CONTROL (test code = 1961672) Passed POSITIVE CONTROL (test code = 20150907) Passed LYNDSAY (test code = LYNDSAY) [id number] [facility][id number] 18:35:00* Test Item Value Reference Range Interpretation [...] 20150905) 0 NEGATIVE CONTROL (test code = 4786704) Passed POSITIVE CONTROL (test code = 20150907) Passed LYNDSAY (test code = LYNDSAY) [id number] [facility][id number] 18:35:00* Test Item Value Reference Range Interpretation Comme nts T-SPOT.TB (test code = 59150-9) Negative SeeBelow Normal Value: Ne gativeA negative [...] CORRECTED FOR NEG CONTROL (test code = 29393-0) 0 NEGATIVE CONTROL (test code = 87707-0) Passed POSITIVE CONTROL (test code = 06564-5) Passed LYNDSAY (test code = LYNDSAY) [id number] [facility][id number] 18:35:00* Test Item Value Reference Range Interpretation Comme nts T-SPOT.TB (test code = 19508-9) Negative SeeBelow Normal Value: Ne gativeA negative [...] CORRECTED FOR NEG CONTROL (test code = 25623-9) 0 NEGATIVE CONTROL (test code = 99122-4) Passed POSITIVE CONTROL (test code = 95828-3) Passed LYNDSAY (test code = YLNDSAY) [id number] [facility][id number] 18:35:00* Test Item Value Reference Range Interpretation Comme nts T-SPOT.TB (test code = 79921-0) Negative SeeBelow Normal Value: Ne gativeA negative [...] CORRECTED FOR NEG CONTROL (test code = 68079-4) 0 NEGATIVE CONTROL (test code = 59949-4) Passed POSITIVE CONTROL (test code = 22807-7) Passed LYNDSAY (test code = LYNDSAY) [id number] [facility][id number] 18:35:00* Test Item Value Reference Range Interpretation Comme nts T-SPOT.TB (test code = 50030-6) Negative SeeBelow Normal Value: Ne gativeA negative [...] CORRECTED FOR NEG CONTROL (test code = 03410-7) 0 NEGATIVE CONTROL (test code = 98404-8) Passed POSITIVE CONTROL (test code = 93489-3) Passed LYNDSAY (test code = LYNDSAY) [id number] [facility][id number] 18:35:00* Test Item Value Reference Range Interpretation Comme nts T-SPOT.TB (test code = 91211-0) Negative SeeBelow Normal Value: Ne gativeA negative [...] CORRECTED FOR NEG CONTROL (test code = 90715-6) 0 NEGATIVE CONTROL (test code = 52388-0) Passed POSITIVE CONTROL (test code = 93456-7) Passed LYNDSAY (test code = LYNDSAY) [id number] [facility][id number] 18:35:00* Test Item Value Reference Range Interpretation Comme nts T-SPOT.TB (test code = 97713-6) Negative SeeBelow Normal Value: Ne gativeA negative [...] CORRECTED FOR NEG CONTROL (test code = 11912-3) 0 NEGATIVE CONTROL (test code = 97416-9) Passed POSITIVE CONTROL (test code = 63213-2) Passed LYNDSAY (test code = LYNDSAY) [id number] [facility][id number] 18:35:00* Test Item Value Reference Range Interpretation Comme nts T-SPOT.TB (test code = 96966-4) Negative SeeBelow Normal Value: Ne gativeA negative [...] CORRECTED FOR NEG CONTROL (test code = 26792-5) 0 NEGATIVE CONTROL (test code = 41402-0) Passed POSITIVE CONTROL (test code = 85589-9) Passed LYNDSAY (test code = LYNDSAY) [id number] [facility][id number] 18:35:00* Test Item Value Reference Range Interpretation Comme nts T-SPOT.TB (test code = 37881-7) Negative SeeBelow Normal Value: Ne gativeA negative [...] CORRECTED FOR NEG CONTROL (test code = 75957-9) 0 NEGATIVE CONTROL (test code = 09766-0) Passed POSITIVE CONTROL (test code = 06085-6) Passed LYNDSAY (test code = LYNDSAY) [id number] [facility][id number] 18:35:00* Test Item Value Reference Range Interpretation Comme nts T-SPOT.TB (test code = 14365-3) Negative SeeBelow Normal Value: Ne gativeA negative [...] CORRECTED FOR NEG CONTROL (test code = 28463-2) 0 NEGATIVE CONTROL (test code = 75600-6) Passed POSITIVE CONTROL (test code = 51467-5) Passed LYNDSAY (test code = LYNDSAY) [id number] [facility][id number] 18:35:00* Test Item Value Reference Range Interpretation Comme nts T-SPOT.TB (test code = 21850-1) Negative SeeBelow Normal Value: Ne gativeA negative [...] CORRECTED FOR NEG CONTROL (test code = 96323-0) 0 NEGATIVE CONTROL (test code = 87257-2) Passed POSITIVE CONTROL (test code = 91373-5) Passed LYNDSAY (test code = LYNDSAY) [id number] [facility][id number] 18:35:00* Test Item Value Reference Range Interpretation Comme nts T-SPOT.TB (test code = 34839-1) Negative SeeBelow Normal Value: Ne gativeA negative [...] CORRECTED FOR NEG CONTROL (test code = 63147-1) 0 NEGATIVE CONTROL (test code = 00996-2) Passed POSITIVE CONTROL (test code = 04222-3) Passed LYNDSAY (test code = LYNDSAY) [id number] [facility][id number] 18:35:00* Test Item Value Reference Range Interpretation Comme nts T-SPOT.TB (test code = 59250-3) Negative SeeBelow Normal Value: Ne gativeA negative [...] CORRECTED FOR NEG CONTROL (test code = 83559-9) 0 NEGATIVE CONTROL (test code = 02496-0) Passed POSITIVE CONTROL (test code = 94723-4) Passed LYNDSAY (test code = LYNDSAY) [id number] [facility][id number] 18:35:00* Test Item Value Reference Range Interpretation Comme nts T-SPOT.TB (test code = 80561-3) Negative SeeBelow Normal Value: Ne gativeA negative [...] CORRECTED FOR NEG CONTROL (test code = 08088-7) 0 NEGATIVE CONTROL (test code = 28067-0) Passed POSITIVE CONTROL (test code = 70602-1) Passed LYNDSAY (test code = LYNDSAY) [id number] [facility][id number] 18:35:00* Test Item Value Reference Range Interpretation Comme nts T-SPOT.TB (test code = 19774-1) Negative SeeBelow Normal Value: Ne gativeA negative [...] CORRECTED FOR NEG CONTROL (test code = 30479-1) 0 NEGATIVE CONTROL (test code = 30264-2) Passed POSITIVE CONTROL (test code = 30287-2) Passed LYNDSAY (test code = LYNDSAY) [id number] [facility][id number] 18:35:00* Test Item Value Reference Range Interpretation Comme nts T-SPOT.TB (test code = 18286-2) Negative SeeBelow Normal Value: Ne gativeA negative [...] CORRECTED FOR NEG CONTROL (test code = 84340-1) 0 NEGATIVE CONTROL (test code = 19767-8) Passed POSITIVE CONTROL (test code = 05405-5) Passed LYNDSAY (test code = LYNDSAY) [id number] [facility][id number] 18:35:00* Test Item Value Reference Range Interpretation Comme nts T-SPOT.TB (test code = 15017-4) Negative SeeBelow Normal Value: Ne gativeA negative [...] CORRECTED FOR NEG CONTROL (test code = 62424-1) 0 NEGATIVE CONTROL (test code = 19726-2) Passed POSITIVE CONTROL (test code = 55870-7) Passed LYNDSAY (test code = LYNDSAY) [id number] [facility][id number] 18:35:00* Test Item Value Reference Range Interpretation Comme nts T-SPOT.TB (test code = 39094-2) Negative SeeBelow Normal Value: Ne gativeA negative [...] CORRECTED FOR NEG CONTROL (test code = 44934-3) 0 NEGATIVE CONTROL (test code = 55850-0) Passed POSITIVE CONTROL (test code = 52696-4) Passed LYNDSAY (test code = LYNDSAY) [id number] [facility][id number] 18:35:00* Test Item Value Reference Range Interpretation Comme nts T-SPOT.TB (test code = 37302-4) Negative SeeBelow Normal Value: Ne gativeA negative [...] CORRECTED FOR NEG CONTROL (test code = 05329-1) 0 NEGATIVE CONTROL (test code = 11138-0) Passed POSITIVE CONTROL (test code = 25906-5) Passed LYNDSAY (test code = LYNDSAY) [id number] [facility][id number] 18:35:00* Test Item Value Reference Range Interpretation Comme nts T-SPOT.TB (test code = 47375-7) Negative SeeBelow Normal Value: Ne gativeA negative [...] CORRECTED FOR NEG CONTROL (test code = 74462-3) 0 NEGATIVE CONTROL (test code = 73258-1) Passed POSITIVE CONTROL (test code = 93554-3) Passed LYNDSAY (test code = LYNDSAY) [id number] [facility][id number] 18:35:00* Test Item Value Reference Range Interpretation Comme nts T-SPOT.TB (test code = 20027-8) Negative SeeBelow Normal Value: Ne gativeA negative [...] CORRECTED FOR NEG CONTROL (test code = 22410-3) 0 NEGATIVE CONTROL (test code = 94283-3) Passed POSITIVE CONTROL (test code = 25677-1) Passed LYDNSAY (test code = LYNDSAY) [id number] [facility][id number] 18:35:00* Test Item Value Reference Range Interpretation Comme nts T-SPOT.TB (test code = 66828-3) Negative SeeBelow Normal Value: Ne gativeA negative [...] CORRECTED FOR NEG CONTROL (test code = 08098-0) 0 NEGATIVE CONTROL (test code = 72467-9) Passed POSITIVE CONTROL (test code = 74461-5) Passed LYNDSAY (test code = LYNDSAY) [id number] [facility][id number] 18:35:00* Test Item Value Reference Range Interpretation Comme nts T-SPOT.TB (test code = 97865-3) Negative SeeBelow Normal Value: Ne gativeA negative [...] CORRECTED FOR NEG CONTROL (test code = 38864-6) 0 NEGATIVE CONTROL (test code = 45277-3) Passed POSITIVE CONTROL (test code = 25249-2) Passed LYNDSAY (test code = LYNDSAY) [id number] [facility][id number] 18:35:00* Test Item Value Reference Range Interpretation Comme nts T-SPOT.TB (test code = 64704-9) Negative SeeBelow Normal Value: Ne gativeA negative [...] CORRECTED FOR NEG CONTROL (test code = 50425-7) 0 NEGATIVE CONTROL (test code = 62732-9) Passed POSITIVE CONTROL (test code = 72056-7) Passed LYNDSAY (test code = LYNDSAY) [id number] [facility][id number] 18:35:00* Test Item Value Reference Range Interpretation Comme nts T-SPOT.TB (test code = 79082-0) Negative SeeBelow Normal Value: Ne gativeA negative [...] CORRECTED FOR NEG CONTROL (test code = 32863-2) 0 NEGATIVE CONTROL (test code = 54059-4) Passed POSITIVE CONTROL (test code = 35305-1) Passed LYNDSAY (test code = LYNDSAY) [id number] [facility][id number] 18:35:00* Test Item Value Reference Range Interpretation Comme nts T-SPOT.TB (test code = 0040960) Negative SeeBelow Normal Value: Ne gativeA negative [...] CORRECTED FOR NEG CONTROL (test code = 3134707) 1 PANEL B SPOT COUNT CORRECTED FOR NEG CONTROL (test code = 7674977) 0 NEGATIVE CONTROL (test code = 5489123) Passed POSITIVE CONTROL (test code = 8598846) Passed LYNDSAY (test code = LYNDSAY) [id number] [facility][id number] 18:35:00* Test Item Value Reference Range Interpretation Comme nts T-SPOT.TB (test code = 4296027) Negative SeeBelow Normal Value: Ne gativeA negative [...] CORRECTED FOR NEG CONTROL (test code = 1019800) 1 PANEL B SPOT COUNT CORRECTED FOR NEG CONTROL (test code = 9623713) 0 NEGATIVE CONTROL (test code = 2439981) Passed POSITIVE CONTROL (test code = 8199293) Passed LYNDSAY (test code = LYNDSAY) [id number] [facility][id number] 18:35:00* Test Item Value Reference Range Interpretation Comme nts T-SPOT.TB (test code = 9313701) Negative SeeBelow Normal Value: Ne gativeA negative [...] CORRECTED FOR NEG CONTROL (test code = 0869534) 1 PANEL B SPOT COUNT CORRECTED FOR NEG CONTROL (test code = 7983608) 0 NEGATIVE CONTROL (test code = 7264009) Passed POSITIVE CONTROL (test code = 8815727) Passed LYNDSAY (test code = LYNDSAY) [id number] [facility][id number] 18:35:00* Test Item Value Reference Range Interpretation Comme nts T-SPOT.TB (test code = 43290-1) Negative SeeBelow Normal Value: Ne gativeA negative [...] CORRECTED FOR NEG CONTROL (test code = 85545-5) 0 NEGATIVE CONTROL (test code = 26087-6) Passed POSITIVE CONTROL (test code = 32582-2) Passed LYNDSAY (test code = LYNDSAY) [id number] [facility]mx[facility]83 13:41:18 Transesophageal Echocardiography Report (CHETAN) Demographics Patient Name YUE LAWS Date of Study 06/16/2023 ESTELLE Gender Female Visit Number [id number] Race Room Number 1055 Number Date of 1970 Referring Physician Age 53 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 Pulmonic Valve Not visualized.[facility]206-[facility]-84 09:55:41* Test Item Value Reference Range Interpretation Comme nts Result (test code = 6463-4) No [facility] zdjhqx2439-66-17 09:55:41* Test Item Value Reference Range Interpretation Comme nts Result (test code = 6463-4) No MRSA isolated [facility] xekmwg5081-79-58 09:55:41* Test Item Value Reference Range Interpretation Comme nts Result (test code = 6463-4) No MRSA isolated [facility] huqnby3806-86-27 09:55:41* Test Item Value Reference Range Interpretation Comme nts Result (test code = 6463-4) No MRSA isolated [facility] ydiahd5666-57-98 09:55:41* Test Item Value Reference Range Interpretation Comme nts Result (test code = 6463-4) No MRSA isolated [facility] sxdaig8238-75-54 09:55:41* Test Item Value Reference Range Interpretation Comme nts Result (test code = 6463-4) No MRSA isolated [facility] vgkxmg0843-69-08 09:55:41* Test Item Value Reference Range Interpretation Comme nts Result (test code = 6463-4) No MRSA isolated [facility] cccfbu3994-59-30 09:55:41* Test Item Value Reference Range Interpretation Comme nts Result (test code = 6463-4) No MRSA isolated [facility] npkblr1693-82-11 09:55:41* Test Item Value Reference Range Interpretation Comme nts Result (test code = 6463-4) No MRSA isolated [facility] poxywq6871-87-49 09:55:41* Test Item Value Reference Range Interpretation Comme nts Result (test code = 6463-4) No MRSA isolated [facility] gfkujj2668-35-21 09:55:41* Test Item Value Reference Range Interpretation Comme nts Result (test code = 6463-4) No MRSA isolated [facility] fygwbu6371-97-23 09:55:41* Test Item Value Reference Range Interpretation Comme nts Result (test code = 6463-4) No MRSA isolated [facility] wipfkz5803-05-83 09:55:41* Test Item Value Reference Range Interpretation Comme nts Result (test code = 6463-4) No MRSA isolated [facility] dcduyf8554-54-62 09:55:41* Test Item Value Reference Range Interpretation Comme nts Result (test code = 6463-4) No MRSA isolated [facility] feciyf1246-12-93 09:55:41* Test Item Value Reference Range Interpretation Comme nts Result (test code = 6463-4) No MRSA isolated [facility] ixcmfr7072-62-58 09:55:41* Test Item Value Reference Range Interpretation Comme nts Result (test code = 6463-4) No MRSA isolated [facility] ztokam8677-12-59 09:55:41* Test Item Value Reference Range Interpretation Comme nts Result (test code = 6463-4) No MRSA isolated [facility] ybbngm7916-07-59 09:55:41* Test Item Value Reference Range Interpretation Comme nts Result (test code = 6463-4) No MRSA isolated [facility] lnookd6087-33-86 09:55:41* Test Item Value Reference Range Interpretation Comme nts Result (test code = 6463-4) No MRSA isolated [facility] oakecb3038-39-18 09:55:41* Test Item Value Reference Range Interpretation Comme nts Result (test code = 6463-4) No MRSA isolated [facility] kudpaf4801-61-58 09:55:41* Test Item Value Reference Range Interpretation Comme nts Result (test code = 6463-4) No MRSA isolated [facility] sdzogm8972-45-01 09:55:41* Test Item Value Reference Range Interpretation Comme nts Result (test code = 6463-4) No MRSA isolated [facility] cywyuh1216-08-73 09:55:41* Test Item Value Reference Range Interpretation Comme nts Result (test code = 6463-4) No MRSA isolated [facility] hapnfj5323-57-11 09:55:41* Test Item Value Reference Range Interpretation Comme nts Result (test code = 6463-4) No MRSA isolated [facility] awbqwf2110-87-46 09:55:41* Test Item Value Reference Range Interpretation Comme nts Result (test code = 6463-4) No MRSA isolated [facility] zghjqa8840-70-43 09:55:41* Test Item Value Reference Range Interpretation Comme nts Result (test code = 6463-4) No MRSA isolated [facility] lqatar1847-77-75 09:55:41* Test Item Value Reference Range Interpretation Comme nts Result (test code = 6463-4) No MRSA isolated [facility] nykstj9749-58-39 09:55:41* Test Item Value Reference Range Interpretation Comme nts Result (test code = 6463-4) No MRSA isolated [facility] jurkad4241-59-19 09:55:41* Test Item Value Reference Range Interpretation Comme nts Result (test code = 6463-4) No MRSA isolated [facility] bkqtry9060-95-87 09:55:41* Test Item Value Reference Range Interpretation Comme nts Result (test code = 6463-4) No MRSA isolated [facility] mciltz4837-99-46 09:55:41* Test Item Value Reference Range Interpretation Comme nts Result (test code = 6463-4) No MRSA isolated [facility] gpjmjb0154-50-32 09:55:41* Test Item Value Reference Range Interpretation Comme nts Result (test code = 6463-4) No MRSA isolated [facility] fmameq3129-06-54 09:55:41* Test Item Value Reference Range Interpretation Comme nts Result (test code = 6463-4) No MRSA isolated [facility] iqakbr6226-81-42 09:55:41* Test Item Value Reference Range Interpretation Comme nts Result (test code = 6463-4) No MRSA isolated [facility] fvikzz1177-10-14 09:55:41* Test Item Value Reference Range Interpretation Comme nts Result (test code = 6463-4) No MRSA isolated [facility] vlyzfb7113-47-77 09:55:41* Test Item Value Reference Range Interpretation Comme nts Result (test code = 6463-4) No MRSA isolated [facility] jvecwt9619-27-33 09:55:41* Test Item Value Reference Range Interpretation Comme nts Result (test code = 6463-4) No [facility] jpddbp2056-65-04 09:55:41* Test Item Value Reference Range Interpretation Comme nts Result (test code = 6463-4) No [facility] hcmzoz3362-40-55 09:55:41* Test Item Value Reference Range Interpretation Comme nts Result (test code = 6463-4) No [facility] zicdex6048-77-46 09:55:41* Test Item Value Reference Range Interpretation Comme nts Result (test code = 6463-4) No MRSA isolated [facility] jkrkey5893-49-91 09:55:41* Test Item Value Reference Range Interpretation Comme nts Result (test code = 6463-4) No MRSA isolated [facility] qylfno1930-32-93 09:55:41* Test Item Value Reference Range Interpretation Comme nts Result (test code = 6463-4) No [facility] QMBEJA0873-31-02 09:55:41* Test Item Value Reference Range Interpretation Comme nts CULTURE (BEAKER) (test code = 1095) No MRSA isolated CRYPTOCOCCAL RQQAASF2436-91-13 15:50:36* Test Item Value Reference Range Interpretation Comme nts CRYPTOCOCCAL ANTIGEN, SERUM (BEAKER) (test code = 1828) Negative Negative, Interference SPUTUM CULTURE + GRAM [id number] 10:30:11* Test Item Value Reference Range Interpretation [...] this result as normal/abnormal. GRAM STAIN RESULT ([facility]) (test code = 1123) 3+ WBCs GRAM STAIN RESULT (BEAKER) (test code = 860572) 10-15 epithelial cells GRAM STAIN RESULT (BEAKER) (test code = 240469) 2+ gram positive cocci in chains and pairs GRAM STAIN RESULT (BEAKER) (test code = 769181) 1+ gram negative rods GRAM STAIN RESULT (BEAKER) (test code = 621998) 1+ yeast 2+ Normal respiratory rebel presentVANCOMYCIN LEVEL, CZQVQO2415-74-92 06:41:26* Test Item Value Reference Range Interpretation Comme nts VANCOMYCIN TROUGH (BEAKER) ( test code = 522) 17.0 ug/mL 10.0-20.0 Service Plumber ID - ADMINECHO W CONTRAST & ELVETIV3969-75-19 13:44:03Transthoracic Echocardiography Report (TTE) Demographics Patient Name YUE LAWS Date of Study 06/14/2023 ESTELLE Gender Female Visit Number [id number] Race Room Number 1055 Number Date of 1970 Referring Aydee Go MD Physician Age 53 year(s) 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 The reference range was not used to interpret this result as normal/abnormal. "The A1c is measured using a [facility]-certified method. HbA1c value equal to or greater than 6.5% as the diagnosis cutoff for diabetes. An HbA1c value of 5.7- 6.4% indicates increased risk for diabetes (prediabetes)."Service Plumber ID - ADMOperator ID - ADMECG 12 [id number] 09:06:12Ventricular Rate 97 BPMAtrial Rate 97 BPMP-R Interval 146 msQRS Duration 96 msQ-T Interval 378 msQTC Calculation(Bazett) 480 msP [place] 68 degreesR [place] 107 degreesT [place] 18 degrees Suspect arm leadreversal, interpretation assumes no reversalNormal sinus rhythmRightward axisNonspecific T wave abnormalityAbnormal ECGWhen compared with ECG of 30-MAR-2023 13:06,QRS axis Shifted rightConfirmed by Luis Lopez ([id number]) on 06/14/2023 9:06:07 [facility] [id number] 09:06:12Ventricular Rate 97 BPMAtrial Rate 97 BPMP-R Interval 146 msQRS Duration 96 msQ-T Interval 378 msQTC Calculation(Bazett) 480 msP [place] 68 degreesR [place] 107 degreesT [place] 18 degrees Suspect arm leadreversal, interpretation assumes no reversalNormal sinus rhythmRightward axisNonspecific T wave abno rmalityAbnormal ECGWhen compared with ECG of 30-MAR-2023 13:06,QRS axis Shifted rightConfirmed by Luis Lopez ([id number]) on 06/14/2023 9:06:07 [facility]BAS[facility] MET[facility]OLIC [id number] 04:48:18* Test Item Value Reference Range Interpretation [...] GFR is not applicable for dialysis patients Service Plumber ID - ADMINCBC (HEMOGRAM ONLY)2023-06-14 04:22:50* Test [...] 413) 0 /100 WBC 0-0 Strep pneumoniae kjilkgi9723-49-14 23:34:41* Test Item Value Reference Range Interpretation Comme nts Strep pneumoniae Antigen (test code = 48181-4) Presumptive negative for pneumococcal pneumonia - see [...] the test. Lab Interpretation (test code = 98399-0) [facility] vssizxg4243-13-82 23:34:41* Test Item Value Reference Range Interpretation Comme nts Strep pneumoniae Antigen (test code = 95281-3) Presumptive negative for pneumococcal pneumonia - see [...] the test. Lab Interpretation (test code = 47356-6) [facility] pcbluse4540-35-05 23:34:41* Test Item Value Reference Range Interpretation Comme nts Strep pneumoniae Antigen (test code = 36303-7) Presumptive negative for pneumococcal pneumonia - see [...] the test. Lab Interpretation (test code = 22596-3) Normal [facility] [facility] [id number] 23:34:41* Test Item Value Reference Range Interpretation Comme nts Strep pneumoniae Antigen (test code = 22884-6) Presumptive negative for pneumococcal pneumonia - see [...] the test. Lab Interpretation (test code = 24044-3) [facility] [id number] 23:34:41* Test Item Value Reference Range Interpretation Comme nts Strep pneumoniae Antigen (test code = 01749-9) Presumptive negative for pneumococcal pneumonia - see [...] the test. Lab Interpretation (test code = 46915-4) [facility] [id number] 23:34:41* Test Item Value Reference Range Interpretation Comme nts Strep pneumoniae Antigen (test code = 11250-1) Presumptive negative for pneumococcal pneumonia - see [...] the test. Lab Interpretation (test code = 52564-5) [facility] [id number] 23:34:41* Test Item Value Reference Range Interpretation Comme nts Strep pneumoniae Antigen (test code = 53221-6) Presumptive negative for pneumococcal pneumonia - see [...] the test. Lab Interpretation (test code = 24419-8) [facility] [id number] 23:34:41* Test Item Value Reference Range Interpretation Comme nts Strep pneumoniae Antigen (test code = 69698-1) Presumptive negative for pneumococcal pneumonia - see [...] the test. Lab Interpretation (test code = 89595-8) [facility] [id number] 23:34:41* Test Item Value Reference Range Interpretation Comme nts Strep pneumoniae Antigen (test code = 14567-3) Presumptive negative for pneumococcal pneumonia - see [...] the test. Lab Interpretation (test code = 10716-6) [facility] [id number] 23:34:41* Test Item Value Reference Range Interpretation Comme nts Strep pneumoniae Antigen (test code = 68047-5) Presumptive negative for pneumococcal pneumonia - see [...] the test. Lab Interpretation (test code = 31210-4) [facility] [id number] 23:34:41* Test Item Value Reference Range Interpretation Comme nts Strep pneumoniae Antigen (test code = 11356-6) Presumptive negative for pneumococcal pneumonia - see [...] the test. Lab Interpretation (test code = 85113-0) [facility] [id number] 23:34:41* Test Item Value Reference Range Interpretation Comme nts Strep pneumoniae Antigen (test code = 36784-6) Presumptive negative for pneumococcal pneumonia - see [...] the test. Lab Interpretation (test code = 57776-2) [facility] [id number] 23:34:41* Test Item Value Reference Range Interpretation Comme nts Strep pneumoniae Antigen (test code = 73828-6) Presumptive negative for pneumococcal pneumonia - see [...] the test. Lab Interpretation (test code = 64134-2) [facility] [id number] 23:34:41* Test Item Value Reference Range Interpretation Comme nts Strep pneumoniae Antigen (test code = 70706-1) Presumptive negative for pneumococcal pneumonia - see [...] the test. Lab Interpretation (test code = 16014-8) [facility] [id number] 23:34:41* Test Item Value Reference Range Interpretation Comme nts Strep pneumoniae Antigen (test code = 65148-6) Presumptive negative for pneumococcal pneumonia - see [...] the test. Lab Interpretation (test code = 49218-9) [facility] [id number] 23:34:41* Test Item Value Reference Range Interpretation Comme nts Strep pneumoniae Antigen (test code = 46675-5) Presumptive negative for pneumococcal pneumonia - see [...] the test. Lab Interpretation (test code = 30135-4) [facility] [id number] 23:34:41* Test Item Value Reference Range Interpretation Comme nts Strep pneumoniae Antigen (test code = 29743-1) Presumptive negative for pneumococcal pneumonia - see [...] the test. Lab Interpretation (test code = 90135-2) [facility] [id number] 23:34:41* Test Item Value Reference Range Interpretation Comme nts Strep pneumoniae Antigen (test code = 31546-4) Presumptive negative for pneumococcal pneumonia - see [...] the test. Lab Interpretation (test code = 61860-7) [facility] [id number] 23:34:41* Test Item Value Reference Range Interpretation Comme nts Strep pneumoniae Antigen (test code = 25928-1) Presumptive negative for pneumococcal pneumonia - see [...] the test. Lab Interpretation (test code = 06698-0) [facility] [id number] 23:34:41* Test Item Value Reference Range Interpretation Comme nts Strep pneumoniae Antigen (test code = 18825-8) Presumptive negative for pneumococcal pneumonia - see [...] the test. Lab Interpretation (test code = 40515-6) [facility] [id number] 23:34:41* Test Item Value Reference Range Interpretation Comme nts Strep pneumoniae Antigen (test code = 25731-2) Presumptive negative for pneumococcal pneumonia - see [...] the test. Lab Interpretation (test code = 43259-2) [facility] [id number] 23:34:41* Test Item Value Reference Range Interpretation Comme nts Strep pneumoniae Antigen (test code = 18549-7) Presumptive negative for pneumococcal pneumonia - see [...] the test. Lab Interpretation (test code = 15245-9) [facility] [id number] 23:34:41* Test Item Value Reference Range Interpretation Comme nts Strep pneumoniae Antigen (test code = 21161-9) Presumptive negative for pneumococcal pneumonia - see [...] the test. Lab Interpretation (test code = 99234-8) [facility] [id number] 23:34:41* Test Item Value Reference Range Interpretation Comme nts Strep pneumoniae Antigen (test code = 50961-8) Presumptive negative for pneumococcal pneumonia - see [...] the test. Lab Interpretation (test code = 15786-0) [facility] [id number] 23:34:41* Test Item Value Reference Range Interpretation Comme nts Strep pneumoniae Antigen (test code = 69737-2) Presumptive negative for pneumococcal pneumonia - see [...] the test. Lab Interpretation (test code = 81349-6) [facility] [id number] 23:34:41* Test Item Value Reference Range Interpretation Comme nts Strep pneumoniae Antigen (test code = 82706-7) Presumptive negative for pneumococcal pneumonia - see [...] the test. Lab Interpretation (test code = 61165-4) [facility] [id number] 23:34:41* Test Item Value Reference Range Interpretation Comme nts Strep pneumoniae Antigen (test code = 17786-0) Presumptive negative for pneumococcal pneumonia - see [...] the test. Lab Interpretation (test code = 57403-1) [facility] [id number] 23:34:41* Test Item Value Reference Range Interpretation Comme nts Strep pneumoniae Antigen (test code = 15174-9) Presumptive negative for pneumococcal pneumonia - see [...] the test. Lab Interpretation (test code = 78432-2) [facility] [id number] 23:34:41* Test Item Value Reference Range Interpretation Comme nts Strep pneumoniae Antigen (test code = 48804-2) Presumptive negative for pneumococcal pneumonia - see [...] the test. Lab Interpretation (test code = 82798-1) [facility] [id number] 23:34:41* Test Item Value Reference Range Interpretation Comme nts Strep pneumoniae Antigen (test code = 37263-9) Presumptive negative for pneumococcal pneumonia - see [...] the test. Lab Interpretation (test code = 71350-2) [facility] [id number] 23:34:41* Test Item Value Reference Range Interpretation Comme nts Strep pneumoniae Antigen (test code = 89150-7) Presumptive negative for pneumococcal pneumonia - see [...] the test. Lab Interpretation (test code = 42109-6) [facility] [id number] 23:34:41* Test Item Value Reference Range Interpretation Comme nts Strep pneumoniae Antigen (test code = 28937-2) Presumptive negative for pneumococcal pneumonia - see [...] the test. Lab Interpretation (test code = 57103-5) [facility] [id number] 23:34:41* Test Item Value Reference Range Interpretation Comme nts Strep pneumoniae Antigen (test code = 90035-8) Presumptive negative for pneumococcal pneumonia - see [...] the test. Lab Interpretation (test code = 55797-2) [facility] [id number] 23:34:41* Test Item Value Reference Range Interpretation Comme nts Strep pneumoniae Antigen (test code = 46744-2) Presumptive negative for pneumococcal pneumonia - see [...] the test. Lab Interpretation (test code = 56678-3) [facility] [id number] 23:34:41* Test Item Value Reference Range Interpretation Comme nts Strep pneumoniae Antigen (test code = 26078-0) Presumptive negative for pneumococcal pneumonia - see [...] the test. Lab Interpretation (test code = 86589-0) [facility] [id number] 23:34:41* Test Item Value Reference Range Interpretation Comme nts Strep pneumoniae Antigen (test code = 22462-6) Presumptive negative for pneumococcal pneumonia - see [...] the test. Lab Interpretation (test code = 22533-7) [facility] [id number] 23:34:41* Test Item Value Reference Range Interpretation Comme nts Strep pneumoniae Antigen (test code = 23600-1) Presumptive negative for pneumococcal pneumonia - see [...] the test. Lab Interpretation (test code = 24758-9) [facility] [id number] 23:34:41* Test Item Value Reference Range Interpretation Comme nts Strep pneumoniae Antigen (test code = 38657-1) Presumptive negative for pneumococcal pneumonia - see [...] the test. Lab Interpretation (test code = 89329-9) [facility] [id number] 23:34:41* Test Item Value Reference Range Interpretation Comme nts Strep pneumoniae Antigen (test code = 31977-5) Presumptive negative for pneumococcal pneumonia - see [...] the test. Lab Interpretation (test code = 34704-5) [facility] [id number] 23:34:41* Test Item Value Reference Range Interpretation Comme nts Strep pneumoniae Antigen (test code = 88376-7) Presumptive negative for pneumococcal pneumonia - see [...] the test. Lab Interpretation (test code = 49170-4) [facility] [id number] 23:34:41* Test Item Value Reference Range Interpretation Comme nts Strep pneumoniae Antigen (test code = 88383-2) Presumptive negative for pneumococcal pneumonia - see [...] the test. Lab Interpretation (test code = 68735-8) [facility] [id number] 23:34:41* Test Item Value Reference Range Interpretation Comme nts Strep pneumoniae Antigen (test code = 21583-5) Presumptive negative for pneumococcal pneumonia - see [...] the test. Lab Interpretation (test code = 80345-5) [facility] [id number] 23:34:41* Test Item Value Reference Range Interpretation [...] detection limit of the test. Legionella antigen, [id number] 23:29:07* Test Item Value Reference Range Interpretation Comme nts Legionella Urine Antigen (test code = 63538-4) Negative - see comment Negative Negative for L. pneumophila serogroup 1 antigen, suggesting no recent or current infection with this serogroup. Legionellosis cannot be ruled out since other serogroups and species may cause disease. Lab Interpretation (test code = 74375-8) [facility] [id number] 23:29:07* Test Item Value Reference Range Interpretation Comme nts Legionella Urine Antigen (test code = 25778-6) Negative - see comment Negative Negative for L. pneumophila serogroup 1 antigen, suggesting no recent or current infection with this serogroup. Legionellosis cannot be ruled out since other serogroups and species may cause disease. Lab Interpretation (test code = 97157-8) [facility], [id number] 23:29:07* Test Item Value Reference Range Interpretation Comme nts Legionella Urine Antigen (test code = 71941-4) Negative - see comment Negative Negative for L. pneumophila serogroup 1 antigen, suggesting no recent or current infection with this serogroup. Legionellosis cannot be ruled out since other serogroups and species may cause disease. Lab Interpretation (test code = 26311-1) [facility], [id number] 23:29:07* Test Item Value Reference Range Interpretation Comme nts Legionella Urine Antigen (test code = 34200-0) Negative - see comment Negative Negative for L. pneumophila serogroup 1 antigen, suggesting no recent or current infection with this serogroup. Legionellosis cannot be ruled out since other serogroups and species may cause disease. Lab Interpretation (test code = 94114-9) [facility], [id number] 23:29:07* Test Item Value Reference Range Interpretation Comme nts Legionella Urine Antigen (test code = 30940-2) Negative - see comment Negative Negative for L. pneumophila serogroup 1 antigen, suggesting no recent or current infection with this serogroup. Legionellosis cannot be ruled out since other serogroups and species may cause disease. Lab Interpretation (test code = 42086-3) [facility], [id number] 23:29:07* Test Item Value Reference Range Interpretation Comme nts Legionella Urine Antigen (test code = 14190-6) Negative - see comment Negative Negative for L. pneumophila serogroup 1 antigen, suggesting no recent or current infection with this serogroup. Legionellosis cannot be ruled out since other serogroups and species may cause disease. Lab Interpretation (test code = 73932-6) [facility], [id number] 23:29:07* Test Item Value Reference Range Interpretation Comme nts Legionella Urine Antigen (test code = 60224-1) Negative - see comment Negative Negative for L. pneumophila serogroup 1 antigen, suggesting no recent or current infection with this serogroup. Legionellosis cannot be ruled out since other serogroups and species may cause disease. Lab Interpretation (test code = 20945-6) [facility], [id number] 23:29:07* Test Item Value Reference Range Interpretation Comme nts Legionella Urine Antigen (test code = 94405-7) Negative - see comment Negative Negative for L. pneumophila serogroup 1 antigen, suggesting no recent or current infection with this serogroup. Legionellosis cannot be ruled out since other serogroups and species may cause disease. Lab Interpretation (test code = 09483-7) [facility], [id number] 23:29:07* Test Item Value Reference Range Interpretation Comme nts Legionella Urine Antigen (test code = 94708-2) Negative - see comment Negative Negative for L. pneumophila serogroup 1 antigen, suggesting no recent or current infection with this serogroup. Legionellosis cannot be ruled out since other serogroups and species may cause disease. Lab Interpretation (test code = 95896-8) [facility], [id number] 23:29:07* Test Item Value Reference Range Interpretation Comme nts Legionella Urine Antigen (test code = 88658-6) Negative - see comment Negative Negative for L. pneumophila serogroup 1 antigen, suggesting no recent or current infection with this serogroup. Legionellosis cannot be ruled out since other serogroups and species may cause disease. Lab Interpretation (test code = 91776-6) [facility], [id number] 23:29:07* Test Item Value Reference Range Interpretation Comme nts Legionella Urine Antigen (test code = 17619-1) Negative - see comment Negative Negative for L. pneumophila serogroup 1 antigen, suggesting no recent or current infection with this serogroup. Legionellosis cannot be ruled out since other serogroups and species may cause disease. Lab Interpretation (test code = 60370-6) [facility], [id number] 23:29:07* Test Item Value Reference Range Interpretation Comme nts Legionella Urine Antigen (test code = 48889-3) Negative - see comment Negative Negative for L. pneumophila serogroup 1 antigen, suggesting no recent or current infection with this serogroup. Legionellosis cannot be ruled out since other serogroups and species may cause disease. Lab Interpretation (test code = 72314-2) [facility], [id number] 23:29:07* Test Item Value Reference Range Interpretation Comme nts Legionella Urine Antigen (test code = 54117-0) Negative - see comment Negative Negative for L. pneumophila serogroup 1 antigen, suggesting no recent or current infection with this serogroup. Legionellosis cannot be ruled out since other serogroups and species may cause disease. Lab Interpretation (test code = 20414-7) [facility], [id number] 23:29:07* Test Item Value Reference Range Interpretation Comme nts Legionella Urine Antigen (test code = 24445-8) Negative - see comment Negative Negative for L. pneumophila serogroup 1 antigen, suggesting no recent or current infection with this serogroup. Legionellosis cannot be ruled out since other serogroups and species may cause disease. Lab Interpretation (test code = 68465-2) [facility], [id number] 23:29:07* Test Item Value Reference Range Interpretation Comme nts Legionella Urine Antigen (test code = 64088-0) Negative - see comment Negative Negative for L. pneumophila serogroup 1 antigen, suggesting no recent or current infection with this serogroup. Legionellosis cannot be ruled out since other serogroups and species may cause disease. Lab Interpretation (test code = 59315-9) [facility], [id number] 23:29:07* Test Item Value Reference Range Interpretation Comme nts Legionella Urine Antigen (test code = 72795-1) Negative - see comment Negative Negative for L. pneumophila serogroup 1 antigen, suggesting no recent or current infection with this serogroup. Legionellosis cannot be ruled out since other serogroups and species may cause disease. Lab Interpretation (test code = 11466-2) [facility], [id number] 23:29:07* Test Item Value Reference Range Interpretation Comme nts Legionella Urine Antigen (test code = 02425-2) Negative - see comment Negative Negative for L. pneumophila serogroup 1 antigen, suggesting no recent or current infection with this serogroup. Legionellosis cannot be ruled out since other serogroups and species may cause disease. Lab Interpretation (test code = 98178-3) [facility], [id number] 23:29:07* Test Item Value Reference Range Interpretation Comme nts Legionella Urine Antigen (test code = 38610-4) Negative - see comment Negative Negative for L. pneumophila serogroup 1 antigen, suggesting no recent or current infection with this serogroup. Legionellosis cannot be ruled out since other serogroups and species may cause disease. Lab Interpretation (test code = 92167-9) [facility], [id number] 23:29:07* Test Item Value Reference Range Interpretation Comme nts Legionella Urine Antigen (test code = 88240-1) Negative - see comment Negative Negative for L. pneumophila serogroup 1 antigen, suggesting no recent or current infection with this serogroup. Legionellosis cannot be ruled out since other serogroups and species may cause disease. Lab Interpretation (test code = 64802-2) [facility], [id number] 23:29:07* Test Item Value Reference Range Interpretation Comme nts Legionella Urine Antigen (test code = 78137-6) Negative - see comment Negative Negative for L. pneumophila serogroup 1 antigen, suggesting no recent or current infection with this serogroup. Legionellosis cannot be ruled out since other serogroups and species may cause disease. Lab Interpretation (test code = 01760-1) [facility], [id number] 23:29:07* Test Item Value Reference Range Interpretation Comme nts Legionella Urine Antigen (test code = 74954-4) Negative - see comment Negative Negative for L. pneumophila serogroup 1 antigen, suggesting no recent or current infection with this serogroup. Legionellosis cannot be ruled out since other serogroups and species may cause disease. Lab Interpretation (test code = 50579-6) [facility], [id number] 23:29:07* Test Item Value Reference Range Interpretation Comme nts Legionella Urine Antigen (test code = 63864-8) Negative - see comment Negative Negative for L. pneumophila serogroup 1 antigen, suggesting no recent or current infection with this serogroup. Legionellosis cannot be ruled out since other serogroups and species may cause disease. Lab Interpretation (test code = 86636-2) [facility], [id number] 23:29:07* Test Item Value Reference Range Interpretation Comme nts Legionella Urine Antigen (test code = 14267-7) Negative - see comment Negative Negative for L. pneumophila serogroup 1 antigen, suggesting no recent or current infection with this serogroup. Legionellosis cannot be ruled out since other serogroups and species may cause disease. Lab Interpretation (test code = 24745-1) [facility], [id number] 23:29:07* Test Item Value Reference Range Interpretation Comme nts Legionella Urine Antigen (test code = 20315-9) Negative - see comment Negative Negative for L. pneumophila serogroup 1 antigen, suggesting no recent or current infection with this serogroup. Legionellosis cannot be ruled out since other serogroups and species may cause disease. Lab Interpretation (test code = 37000-9) [facility], [id number] 23:29:07* Test Item Value Reference Range Interpretation Comme nts Legionella Urine Antigen (test code = 61764-8) Negative - see comment Negative Negative for L. pneumophila serogroup 1 antigen, suggesting no recent or current infection with this serogroup. Legionellosis cannot be ruled out since other serogroups and species may cause disease. Lab Interpretation (test code = 46092-0) [facility], [id number] 23:29:07* Test Item Value Reference Range Interpretation Comme nts Legionella Urine Antigen (test code = 45759-8) Negative - see comment Negative Negative for L. pneumophila serogroup 1 antigen, suggesting no recent or current infection with this serogroup. Legionellosis cannot be ruled out since other serogroups and species may cause disease. Lab Interpretation (test code = 09018-3) [facility], [id number] 23:29:07* Test Item Value Reference Range Interpretation Comme nts Legionella Urine Antigen (test code = 80762-2) Negative - see comment Negative Negative for L. pneumophila serogroup 1 antigen, suggesting no recent or current infection with this serogroup. Legionellosis cannot be ruled out since other serogroups and species may cause disease. Lab Interpretation (test code = 37732-4) [facility], [id number] 23:29:07* Test Item Value Reference Range Interpretation Comme nts Legionella Urine Antigen (test code = 99304-3) Negative - see comment Negative Negative for L. pneumophila serogroup 1 antigen, suggesting no recent or current infection with this serogroup. Legionellosis cannot be ruled out since other serogroups and species may cause disease. Lab Interpretation (test code = 83434-6) [facility], [id number] 23:29:07* Test Item Value Reference Range Interpretation Comme nts Legionella Urine Antigen (test code = 20840-2) Negative - see comment Negative Negative for L. pneumophila serogroup 1 antigen, suggesting no recent or current infection with this serogroup. Legionellosis cannot be ruled out since other serogroups and species may cause disease. Lab Interpretation (test code = 94413-0) [facility], [id number] 23:29:07* Test Item Value Reference Range Interpretation Comme nts Legionella Urine Antigen (test code = 61734-7) Negative - see comment Negative Negative for L. pneumophila serogroup 1 antigen, suggesting no recent or current infection with this serogroup. Legionellosis cannot be ruled out since other serogroups and species may cause disease. Lab Interpretation (test code = 13806-5) [facility], [id number] 23:29:07* Test Item Value Reference Range Interpretation Comme nts Legionella Urine Antigen (test code = 51592-6) Negative - see comment Negative Negative for L. pneumophila serogroup 1 antigen, suggesting no recent or current infection with this serogroup. Legionellosis cannot be ruled out since other serogroups and species may cause disease. Lab Interpretation (test code = 54113-3) [facility], [id number] 23:29:07* Test Item Value Reference Range Interpretation Comme nts Legionella Urine Antigen (test code = 46596-4) Negative - see comment Negative Negative for L. pneumophila serogroup 1 antigen, suggesting no recent or current infection with this serogroup. Legionellosis cannot be ruled out since other serogroups and species may cause disease. Lab Interpretation (test code = 38630-6) [facility], [id number] 23:29:07* Test Item Value Reference Range Interpretation Comme nts Legionella Urine Antigen (test code = 81631-0) Negative - see comment Negative Negative for L. pneumophila serogroup 1 antigen, suggesting no recent or current infection with this serogroup. Legionellosis cannot be ruled out since other serogroups and species may cause disease. Lab Interpretation (test code = 83404-9) [facility], [id number] 23:29:07* Test Item Value Reference Range Interpretation Comme nts Legionella Urine Antigen (test code = 15264-7) Negative - see comment Negative Negative for L. pneumophila serogroup 1 antigen, suggesting no recent or current infection with this serogroup. Legionellosis cannot be ruled out since other serogroups and species may cause disease. Lab Interpretation (test code = 31779-6) [facility], [id number] 23:29:07* Test Item Value Reference Range Interpretation Comme nts Legionella Urine Antigen (test code = 40092-4) Negative - see comment Negative Negative for L. pneumophila serogroup 1 antigen, suggesting no recent or current infection with this serogroup. Legionellosis cannot be ruled out since other serogroups and species may cause disease. Lab Interpretation (test code = 55410-7) [facility], [id number] 23:29:07* Test Item Value Reference Range Interpretation Comme nts Legionella Urine Antigen (test code = 84826-6) Negative - see comment Negative Negative for L. pneumophila serogroup 1 antigen, suggesting no recent or current infection with this serogroup. Legionellosis cannot be ruled out since other serogroups and species may cause disease. Lab Interpretation (test code = 95040-3) [facility], [id number] 23:29:07* Test Item Value Reference Range Interpretation Comme nts Legionella Urine Antigen (test code = 72264-9) Negative - see comment Negative Negative for L. pneumophila serogroup 1 antigen, suggesting no recent or current infection with this serogroup. Legionellosis cannot be ruled out since other serogroups and species may cause disease. Lab Interpretation (test code = 75016-6) [facility], [id number] 23:29:07* Test Item Value Reference Range Interpretation Comme nts Legionella Urine Antigen (test code = 02260-0) Negative - see comment Negative Negative for L. pneumophila serogroup 1 antigen, suggesting no recent or current infection with this serogroup. Legionellosis cannot be ruled out since other serogroups and species may cause disease. Lab Interpretation (test code = 82770-8) [facility], [id number] 23:29:07* Test Item Value Reference Range Interpretation Comme nts Legionella Urine Antigen (test code = 75457-1) Negative - see comment Negative Negative for L. pneumophila serogroup 1 antigen, suggesting no recent or current infection with this serogroup. Legionellosis cannot be ruled out since other serogroups and species may cause disease. Lab Interpretation (test code = 24189-7) [facility], [id number] 23:29:07* Test Item Value Reference Range Interpretation Comme nts Legionella Urine Antigen (test code = 87151-5) Negative - see comment Negative Negative for L. pneumophila serogroup 1 antigen, suggesting no recent or current infection with this serogroup. Legionellosis cannot be ruled out since other serogroups and species may cause disease. Lab Interpretation (test code = 16312-8) [facility], [id number] 23:29:07* Test Item Value Reference Range Interpretation Comme nts Legionella Urine Antigen (test code = 82657-5) Negative - see comment Negative Negative for L. pneumophila serogroup 1 antigen, suggesting no recent or current infection with this serogroup. Legionellosis cannot be ruled out since other serogroups and species may cause disease. Lab Interpretation (test code = 86902-5) [facility], [id number] 23:29:07* Test Item Value Reference Range Interpretation Comme nts Legionella Urine Antigen (test code = 80382-6) Negative - see comment Negative Negative for L. pneumophila serogroup 1 antigen, suggesting no recent or current infection with this serogroup. Legionellosis cannot be ruled out since other serogroups and species may cause disease. Lab Interpretation (test code = 44998-0) [facility] ANTIGEN, [id number] 23:29:07* Test Item Value Reference Range Interpretation Comme nts L. PNEUMOPHILA SEROGP 1 UR AG (BEAKER) (test code = 1156) Negative - see comment Negative Negative for L. pneumophila serogroup 1 antigen, suggesting no recent or current infection with this serogroup. Legionellosis cannot be ruled out since other serogroups and species may cause disease. Venous doppler arm, [id number] 20:05:32PV LAB - Upper Extremities Veins Demographics Patient Name YUE LAWS Date of Study 06/13/2023 ESTLELE Age 53 Visit Number [id number] Gender Female Accession Number [id number] Date ofBirth 1970 Referring Cara Burgess Room Number 1055 Physician Chocolate Coater Lisa Ruiz Interpreting John Solorio, Physician FellowProcedureType of Study: Veins: Upper ExtremitiesVeins, VENOUS DOPPLER ARM, LEFT.Indications for Study:Left arm pain .Patient Status:MICHAEL.Study Locat ion:Portable.Technical Quality:Adequate visualization. - Results were reported to:BETH Lina@16:50pm .Risk FactorsHistory of Disease+ + + ---------+!Diagnosis [...] in cm/s ; Diameters are [facility] CenterHIV[facility] ANTIGEN WITH HIV-1/2 [id number] 18:36:40* Test Item Value Reference Range Interpretation Comme nts HIV-1 ANTIGEN WITH HIV 1\\T\\2 ANTIBODY (2) (LATOYA) (test code = 2586) Nonreactive Nonreactive MR lumbar spine without & with IV [id number] 14:53:29MR LUMBAR SPINE WITH & WITHOUT IV [...] x 1.7x 1.7 cm. Dorsal paraspinal musculature K7udseunkzfeovxw. Postcontrast imaging demonstrates mild peripheralenhancement of the dorsal paraspinal fluid collection. Left adrenalgland 2.9 cm nodule.[facility] WITH & WITHOUT IV [id number] 14:53:29[facility] : [...] 1.7 x 1.7 cm. Dorsal paraspinal musculature O1rgsvllmxblqklb. Postcontrast imaging demonstrates mild peripheralenhancement of the [...] Signed By: Ryan Buckley06/13/2023 14:55 CDTWorkstation Name: [id number] KINASE (CK)2023-06-13 11:54:02* Test Item Value Reference Range Interpretation Comme nts CREATINE KINASE TOTAL (BEAKE R) (test code = 380) 43 U/L 29-200 Service Plumber ID - ADMINCOMPREHENSIVE METABOLIC [id number] 06:48:22* Test Item Value Reference Range Interpretation [...] GFR is not applicable for dialysis patients Service Plumber ID - ADMINPROTHROMBIN TIME/[id number] 06:40:01* Test Item Value Reference Range Interpretation [...] code = 2801) 1.70 % 0.00-1.00 H [id number] 05:26:09* Test Item Value Reference Range Interpretation Comme nts MAGNESIUM (BEAKER) (test cod e = 627) 2.0 mg/dL 1.6-2.6 Service Plumber ID - [id number] 05:26:09* Test Item Value Reference Range Interpretation Comme nts PHOSPHORUS (BEAKER) (test co de = 604) 3.5 mg/dL 2.3-4.7 Service Plumber ID - ADMINBASIC METABOLIC [id number] 05:26:08* Test Item Value Reference Range Interpretation [...] GFR is not applicable for dialysis patients Service Plumber ID - ADMINCBC W/PLT COUNT & AUTO [id number] 05:11:15* Test Item Value Reference Range Interpretation [...] 0.70 % 0.00-1.00 XR spine lumbar 1 [id number] 10:32:20XR SPINE LUMBAR 1 VIEW CLINICAL INDICATION: L3-4 LAMINECTOMY COMPARISON: None[facility]XR [facility]UMBAR 1 [id number] 10:32:20 [facility] [...] Maxim Jean Baptisteip108/01/2022 10:34 CDTWo rkstation Name: [id number] SPINE LUMBAR 1 [id number] 10:29:18 [facility] [...] Signed By: Maxim Ramos08/01/2022 10:31 CDTWorkstation Name: [id number] Screen, [id number] 05:32:52* Test Item Value Reference Range Interpretation Comme nts Preg Test, Ur (test code = 2-1) Negative Negative Lab Interpretation (test cod e = 02912-7) [facility], [id number] 05:32:52* Test Item Value Reference Range Interpretation Comme nts Preg Test, Ur (test code = 2111-1) Negative Negative Lab Interpretation (test cod e = 12212-7) [facility], [id number] 05:32:52* Test Item Value Reference Range Interpretation Comme nts Preg Test, Ur (test code = 2-1) Negative Negative Lab Interpretation (test cod e = 04959-3) [facility], [id number] 05:32:52* Test Item Value Reference Range Interpretation Comme nts Preg Test, Ur (test code = 2-1) Negative Negative Lab Interpretation (test cod e = 13860-8) [facility], [id number] 05:32:52* Test Item Value Reference Range Interpretation Comme nts Preg Test, Ur (test code = 2-1) Negative Negative Lab Interpretation (test cod e = 56373-5) [facility], [id number] 05:32:52* Test Item Value Reference Range Interpretation Comme nts Preg Test, Ur (test code = 2-1) Negative Negative Lab Interpretation (test cod e = 58383-8) [facility], [id number] 05:32:52* Test Item Value Reference Range Interpretation Comme nts Preg Test, Ur (test code = 2-1) Negative Negative Lab Interpretation (test cod e = 93766-4) [facility], [id number] 05:32:52* Test Item Value Reference Range Interpretation Comme nts Preg Test, Ur (test code = 2-1) Negative Negative Lab Interpretation (test cod e = 85331-3) [facility], [id number] 05:32:52* Test Item Value Reference Range Interpretation Comme nts Preg Test, Ur (test code = 2111-) Negative Negative Lab Interpretation (test cod e = 33414-7) [facility], [id number] 05:32:52* Test Item Value Reference Range Interpretation Comme nts Preg Test, Ur (test code = 2111-) Negative Negative Lab Interpretation (test cod e = 28072-1) [facility], [id number] 05:32:52* Test Item Value Reference Range Interpretation Comme nts Preg Test, Ur (test code = 2111-) Negative Negative Lab Interpretation (test cod e = 20039-3) [facility], [id number] 05:32:52* Test Item Value Reference Range Interpretation Comme nts Preg Test, Ur (test code = 2111-) Negative Negative Lab Interpretation (test cod e = 05107-5) [facility], [id number] 05:32:52* Test Item Value Reference Range Interpretation Comme nts Preg Test, Ur (test code = 2111-) Negative Negative Lab Interpretation (test cod e = 59773-5) [facility], [id number] 05:32:52* Test Item Value Reference Range Interpretation Comme nts Preg Test, Ur (test code = 2111-) Negative Negative Lab Interpretation (test cod e = 69070-7) [facility], [id number] 05:32:52* Test Item Value Reference Range Interpretation Comme nts Preg Test, Ur (test code = 2111-) Negative Negative Lab Interpretation (test cod e = 28718-9) [facility], [id number] 05:32:52* Test Item Value Reference Range Interpretation Comme nts Preg Test, Ur (test code = 2-1) Negative Negative Lab Interpretation (test cod e = 65509-5) [facility], [id number] 05:32:52* Test Item Value Reference Range Interpretation Comme nts Preg Test, Ur (test code = 2-1) Negative Negative Lab Interpretation (test cod e = 91635-4) [facility], [id number] 05:32:52* Test Item Value Reference Range Interpretation Comme nts Preg Test, Ur (test code = 2111-1) Negative Negative Lab Interpretation (test cod e = 08740-7) [facility] [id number] 05:32:52* Test Item Value Reference Range Interpretation Comme nts Preg Test, Ur (test code = 2111-) Negative Negative Lab Interpretation (test cod e = 17298-9) [facility], [id number] 05:32:52* Test Item Value Reference Range Interpretation Comme nts Preg Test, Ur (test code = 2111-1) Negative Negative Lab Interpretation (test cod e = 20833-1) [facility], [id number] 05:32:52* Test Item Value Reference Range Interpretation Comme nts Preg Test, Ur (test code = 2111-1) Negative Negative Lab Interpretation (test cod e = 18476-7) [facility], [id number] 05:32:52* Test Item Value Reference Range Interpretation Comme nts Preg Test, Ur (test code = 2111-1) Negative Negative Lab Interpretation (test cod e = 76467-1) [facility], [id number] 05:32:52* Test Item Value Reference Range Interpretation Comme nts Preg Test, Ur (test code = 2111-1) Negative Negative Lab Interpretation (test cod e = 48288-3) [facility], [id number] 05:32:52* Test Item Value Reference Range Interpretation Comme nts Preg Test, Ur (test code = 2111-1) Negative Negative Lab Interpretation (test cod e = 99448-7) [facility], [id number] 05:32:52* Test Item Value Reference Range Interpretation Comme nts Preg Test, Ur (test code = 2111-) Negative Negative Lab Interpretation (test cod e = 79836-9) [facility], [id number] 05:32:52* Test Item Value Reference Range Interpretation Comme nts Preg Test, Ur (test code = 2111-) Negative Negative Lab Interpretation (test cod e = 39982-6) [facility], [id number] 05:32:52* Test Item Value Reference Range Interpretation Comme nts Preg Test, Ur (test code = 2111-) Negative Negative Lab Interpretation (test cod e = 98374-7) [facility], [id number] 05:32:52* Test Item Value Reference Range Interpretation Comme nts Preg Test, Ur (test code = 2111-) Negative Negative Lab Interpretation (test cod e = 77514-7) [facility], [id number] 05:32:52* Test Item Value Reference Range Interpretation Comme nts Preg Test, Ur (test code = 2111-) Negative Negative Lab Interpretation (test cod e = 36256-0) [facility], [id number] 05:32:52* Test Item Value Reference Range Interpretation Comme nts Preg Test, Ur (test code = 2111-) Negative Negative Lab Interpretation (test cod e = 82539-4) [facility], [id number] 05:32:52* Test Item Value Reference Range Interpretation Comme nts Preg Test, Ur (test code = 2111-1) Negative Negative Lab Interpretation (test cod e = 52280-7) [facility], [id number] 05:32:52* Test Item Value Reference Range Interpretation Comme nts Preg Test, Ur (test code = 2-1) Negative Negative Lab Interpretation (test cod e = 06302-3) [facility], [id number] 05:32:52* Test Item Value Reference Range Interpretation Comme nts Preg Test, Ur (test code = 2-1) Negative Negative Lab Interpretation (test cod e = 35744-0) [facility], [id number] 05:32:52* Test Item Value Reference Range Interpretation Comme nts Preg Test, Ur (test code = 2-1) Negative Negative Lab Interpretation (test cod e = 00096-7) [facility], [id number] 05:32:52* Test Item Value Reference Range Interpretation Comme nts Preg Test, Ur (test code = 2111-) Negative Negative Lab Interpretation (test cod e = 53718-6) [facility], [id number] 05:32:52* Test Item Value Reference Range Interpretation Comme nts Preg Test, Ur (test code = 2111-) Negative Negative Lab Interpretation (test cod e = 04607-1) [facility], [id number] 05:32:52* Test Item Value Reference Range Interpretation Comme nts Preg Test, Ur (test code = 2111-1) Negative Negative Lab Interpretation (test cod e = 69179-9) [facility], [id number] 05:32:52* Test Item Value Reference Range Interpretation Comme nts Preg Test, Ur (test code = 2111-1) Negative Negative Lab Interpretation (test cod e = 45954-0) [facility], [id number] 05:32:52* Test Item Value Reference Range Interpretation Comme nts Preg Test, Ur (test code = 2111-1) Negative Negative Lab Interpretation (test cod e = 23045-1) [facility], [id number] 05:32:52* Test Item Value Reference Range Interpretation Comme nts Preg Test, Ur (test code = 2111-1) Negative Negative Lab Interpretation (test cod e = 94682-5) [facility], [id number] 05:32:52* Test Item Value Reference Range Interpretation Comme nts Preg Test, Ur (test code = 2111-1) Negative Negative Lab Interpretation (test cod e = 70760-3) [facility], [id number] 05:32:52* Test Item Value Reference Range Interpretation Comme nts Preg Test, Ur (test code = 2111-1) Negative Negative Lab Interpretation (test cod e = 98168-1) [facility], [id number] 05:32:52* Test Item Value Reference Range Interpretation Comme nts Preg Test, Ur (test code = 2111-) Negative Negative Lab Interpretation (test cod e = 90362-4) [facility], [id number] 05:32:52* Test Item Value Reference Range Interpretation Comme nts Preg Test, Ur (test code = 2111-) Negative Negative Lab Interpretation (test cod e = 16652-6) [facility], [id number] 05:32:52* Test Item Value Reference Range Interpretation Comme nts Preg Test, Ur (test code = 2111-) Negative Negative Lab Interpretation (test cod e = 35017-9) Normal [facility]isPREG[facility]NCY SCREEN, [id number] 05:32:52* Test Item Value Reference Range Interpretation Comme nts TEST URINE (BEAKER ) (test code = 583) Negative Negative BASIC METABOLIC [id number] 23:30:54* Test Item Value Reference Range Interpretation [...] GFR is not applicable for dialysis patients Service Plumber ID - ADMINPT/RYDM9808-76-29 23:15:33* Test Item Value Reference Range Interpretation [...] H CT neck soft tissue without IV iiymylhm4567-57-97 13:45:22EXAM: CT NECK SOFT TISSUE WITHOUT IV [...] Postoperative changes from anterior cervical discectomy fusionat C3-J4Nrrxlwdt Lung Apices: NormalCH[facility] CenterCT NECK SOFT TISSUE WITHOUT IV [id number] 13:45:[address] [facility] : 1970 Sex: [...] Postoperative changes from anterior cervical discectomy fusionat C3-H9Hcajdcim Lung Apices: NormalIMPRESSION:Exam limited by lack of intravenous contrast.1. 1.8 x 2.9 x 1.3 cm ill-defined fluid collection in the leftanterolateral neck soft tissues, suggesting evolving postoperativehemorrhage. Superimposed infection is not ex cluded.2. Retropharyngeal fluid and air measuring up to 0.8 cm in thickness,favored to be present postoperative right frontal edema. Superimposedinfection is not excluded.3. Postoperative changes from ACDF at C3- R5Vfhcvupvovqzlw Signed By: Maxim Ramos07/31/2022 13:47 CDTWorkstation Name: [id number] METABOLIC [id number] 08:13:13* Test Item Value Reference Range Interpretation [...] GFR is not applicable for dialysis patients Service Plumber ID - BVCBC W/PLT COUNT & AUTO [id number] 07:46:31* Test Item Value Reference Range Interpretation [...] 0.00-1.00 XR spine cervical 2 or 3 [id number] 20:24:23TECHNIQUE: Frontal and lateral views of the cervical spine. INDICATION: Postop Standing Films. COMPARISON: None.[facility] CERVICAL 2 OR 3 [id number] 20:24:23[facility] [...] Signed By: Zachariah Garcia05/28/2023 20:26 CDTWorkstation Name: [id number] fluoro non-specific up to 1 hour 2023-05-28 11:45:16This is a non-reportable study with no Radiologist dictation. Please refer to your PACS to review images, or Doc Flowsheets for documentation on studies without images.[facility]Cl[facility]isFL FLUORO NON-SPECIFIC UP TO 1 [id number] 11:45:16 [facility] ESTELLE : 1970 Sex: FThis is a non- reportable study with no Radiologist dictation. Please refer to your PACS to review images, or Doc Flowsheets for documentation on studies without images.FL FLUORO NON-SPECIFIC UP TO 1 [id number] 10:13:02 [facility] ESTELLE : 1970 Sex: FTECHNIQUE: 1 lateral fluoroscopic image of the cervical spine forlocalization.Fluoroscopic time: 3second(s).FINDINGS:The surgical pointer is at C3-C4.The findings were discussed with Dr. Garcia in the[place] who concurred withthe findings.IMPRESSION:Intraoperative localization plain film as described abo ve.Electronically Signed By: Derik Reyez05/28/2023 10:15 CDTWorkstation Name: [id number], QUANTITATIVE, [id number] 08:21:03* Test Item Value Reference Range Interpretation Comme nts GONADOTROPIN, CHORIONIC (HCG ) QUANT (BEAKER) (test code = 649) < mIU/mL 0-10 Non- Females: <10 mIU/mL Females: Gestation Age Reference Range(mIU/mL) 0.2-1 Week 5-50 1-2 Weeks 50-500 2-3 Weeks 100-5,000 3-4 Weeks 500-10,000 4-5 Weeks 1,000-50,000 5-6 Weeks 10,000-100,000 6-8 Weeks 15,000- 200,000 2-3 Months 10,000-100,000 Service Plumber ID - ADMINCULTURE, [id number] 09:28:30SPECIMEN NUMBER: [id number] CULTURE, URINE SPECIMEN NUMBER: [id number] SPECIMEN COMMENT: URINE SOURCE: URINE REPORT STATUS: FINAL FINAL REPORT: 05/15/2023 >100,000 CFU/ML UROGENITAL REBEL PRESENT NO COMMON PATHOGENS UNLESS OTHERWISE INDICATED, ALL TESTING PERFORMED AT [facility] [address] [place] [address] MATERIAL MANAGER: JANNY STEINER M.D. CLIA NUMBER [id number] [place]. [id number], [id number] 12:02:50SPECIMEN NUMBER: [id number] CULTURE, URINE SPECIMEN NUMBER: [id number] SOURCE: URINE REPORT STATUS: FINAL FINAL REPORT: 05/13/2023 NO SPECIMEN RECEIVED FOR TESTING. CHARGES DELETED.BASIC METABOLIC [id number] 04:48:43* Test Item Value Reference Range Interpretation Comme nts GLUCOSE (test code = 2217) 117 MG/DL 70-99 H BUN (test code = 2208) 20 MG/DL 6-20 CREATININE (test code = 2214) 0.83 MG/DL 0.60-1.30 eGFR (2020 CKD-EPI) (test co de = 93949) 85 ML/MIN/1.73 >60 SODIUM (test code = [...] 12.7 SECONDS 12.5-14.7 INR (test code = 51365) 0.9 SEE BELOW CURRENT RECOMMENDATIONS ARE FOR AN INR OF 2.0-3.0 FOR ALL PATIENTS ON VITAMIN K ANTAGONISTS, EXCEPT THOSE WITH PROSTHETIC HEART VALVES, FOR WHOM INR OF 2.5-3.5 IS RECOMMENDED. UNLESS OTHERWISE INDICATED, ALL TESTING PERFORMED AT [facility] [address] [place] [address] MATERIAL MANAGER: JANNY STEINER M.D. CLIA NUMBER [id number] [facility] [place]. [id number] CBC W/AUTO DIFF WITH [id number] 01:54:17* Test Item Value Reference Range Interpretation [...] H ABS NUCLEATED RBCS (test code = 25502) 0.00 K/UL 0.00-0.11 ECG 12 [id number] 14:02:48Ventricular Rate 102 BPMAtrial Rate 102 BPMP-R Interval 146 msQRS Duration 90 msQ-T Interval 372 msQTC Calculation(Bazett) 484 msP [place] 11 degreesR [place] -53 degreesT [place] 29 degrees Sinus tachycardiaPossible Left atrial enlargementLeft axis deviationPoor R wave progression Cannot rule out Anterior infarct , age undetermined vs lead misplacementNonspecific T wave abnormalityProlonged QTAbnormal ECGNo previous ECGs availableConfirmed by David GARCIA BASANT ([id number]) on 04/06/2023 2:02:46 [facility] & [id number] 13:11:39Transthoracic Echocardiography Report (TTE) Demographics Patient Name YUE LAWS Date of Study 03/31/2023 ESTELLE Gender Female Visit Number [id number] Race Room Number 2227 Number Date of 1970 Referring Physician Mariah Aldridge MD Age 53year(s) Chocolate Coater Wilmer Francois Ob Gyn Josefina Corbett [facility] Interpreting Physician Melody MDProcedure Type of Study [...] Peak Velocity: 0.74 m/s Peak Gradient: 2.22 mmHgCommunity [facility] Center-ClovisXR chest 1 view portable / [id number] 15:39:07TECHNIQUE: Frontal view of the chest. INDICATION: CHf. COMPARISON: None. FINDINGS: LINES/TUBES: None. HEART AND MEDIASTINUM: Cardiomediastinal contour is within normallimits. LUNGS: The lungs are well inflated and clear. No consolidation orpulmonary edema. PLEURA: No pneumothorax. No significant pleural effusion. SOFT TISSUES AND BONES: Cervical spinal fixation hardware is noted.[facility]XR CHEST 1 VIEW PORTABLE / [id number] 15:39:07 [facility] 1970 Sex: FTECHNIQUE: Frontal view of the chest.INDICATION: CHf.COMPARISON: None.FINDINGS:LINES/TUBES: None.HE ART AND MEDIASTINUM: Cardiomediastinal contour is within normallimits. LUNGS: The lungs are well inflated and clear. No consolidation orpulmonary edema.PLEURA: No pneumothorax. No significant pleuraleffusion.SOFT TISSUES AND BONES: Cervical spinal fixation hardware is noted.IMPRESSION:No acute card iopulmonary process.Electronically Signed By: Jose Carlos Longoriaman04/01/2023 15:41 CDTWorkstation Name: [id number] NATRIURETIC FACTOR (BNP)2023-04-01 14:15:07* Test Item Value Reference Range Interpretation Comme nts B-TYPE NATRIURETIC PEPTIDE ( BEAKER) (test code = 700) 192 pg/mL 0-100 H Service Plumber ID - ADMINMR spine cervical without IV [id number] 11:30:35MRI cervical spine without contrast CLINICAL HISTORY: [...] and paraspinal soft tissues are within normal limits.[facility]isMR CERVICAL SPINE WITHOUT IV [id number] 11:30:35 [facility] [...] Signed By: Maxim Sultana03/31/2023 11:32 CDTWorkstation Name: [id number] METABOLIC [id number] 04:43:14* Test Item Value Reference Range Interpretation [...] GFR is not applicable for dialysis patients Service Plumber GEOVANNA CORREA WCBC (HEMOGRAM ONLY)2023-03-31 04:20:07* Test [...] 0 /100 WBC 0-0 Arterial doppler legs [id number] 17:44:07PV LAB - Lower Extremity Arterial Duplex Demographics Patient Name YUE LAWS Date of Study ESTELLE Age 53 Visit Number [id number] Gender Female Accession Number [id number] Date of 1970 Referring Mariah Aldridge, Room Number 2227 Physician Chocolate Coater Yovana Akins Interpreting John Solorio, Physician FellowProcedureType [...] + + + + + + !Prox COOK [employer] ! !32 ! !Biphasic ! !60.9 ! !Triphasic ! +-- + + + + + + + + + !Mid [employer] ! !25.9 ! !Biphasic ! !59.7 ! !Triphasic ! + + + + + + + + + + !Dist [employer] ! !33.2 ! !Biphasic ! !37.4 ! [...] + + + + + + +[facility] CenterABI's Only(Ankle/Brachial Index)2023-03-30 17:13:47PV LAB - Lower Extremity Arterial Procedure Demographics Patient Name YUE LAWS Date of Study 03/30/2023 ESTELLE Age 53 Visit Number [id number] Gender Female Accession Number [id number] Date of 1970 Referring Mariah Aldridge, Room Number 2227 Physician Chocolate Coater Yovana Akins Interpreting John Solorio, Physician FellowProcedureType [...] in cm/s ; Diameters are measured in [facility] thoracic spine without IV [id number] 12:50:50 THORACIC SPINE WITHOUT IV CONTRAST INDICATION: [...] abnormality. T10-11 moderate right neural foraminal stenosis klhR20-62 moderate bilateral foraminal stenosis due to facet hypertrophyand ligamentum flavum redundancy. Thoracic vertebrae maintain normal height. Mild multilevel degenerativedisc changes. No evidence of acute osseous fracture or traumaticmalalignment. No paraspinal mass. Conus medullaris terminates at L1. Redundant cauda equina partiallyimaged and further reported on MRI lumbar spine.[facility] THORACIC SPINE WITHOUT IV [id number] 12:50:50 [facility] [...] abnormality. T10-11 moderate right neural foraminal stenosis dkiO70-36 moderate bilateral foraminal stenosis due to facet [...] Signed By: Ryan Buckley03/30/2023 12:52 CDTWorkstation Name: [id number] spine lumbar without IV [id number] 12:33:57MR LUMBAR SPINE WITHOUT IV CONTRAST INDICATION: Unlisted Reason for ExamConcern for cord compression COMPARISON: None TECHNIQUE: Multiplanar, multisequence MR images of the lumbar spinewithout contrast. FINDINGS: For the purposes of this dictation, the 5 lowermost ztxlxz-wdwcbwbsfubvq-fyex vertebral bodies are labeled L1-L5.Alignment of the [...] with mild to moderatebilateral neural foraminal stenosisCHI [facility]elope [facility] Hospital Medical CenterMR LUMBAR SPINE WITHOUT IV [id number] 12:33:57 [facility] ESTELLE : 1970 Sex: FMR LUMBAR SPINE WITHOUT IV CONTRASTINDICATION: Unlisted Reason for ExamConcern for cord compressionCOMPARISON: NoneTECHNIQUE: Multiplanar, multisequence MR images of the lumbar spinewithout contrast. FINDINGS: For the purposes of this dictation, the 5 lowermost gpozmb-qpixivzarspnw-zdgg vertebral bodies are labeled L1- L5.Alignment of the lumbar spine is within normal limits. Vertebral body height is maintained. Bone marrow edema is seen at the inferior L3 and superior L4 vertebralbodies and bilateral L4 pedicles, favored to be degenerative in nature.Suggestion of a synovial cyst at the myclxG74-S45 level (series 301image eight).No spinal cord signal [...] flavum buckling versus synovial cyst at the nisabN80-H84 level (series 301image eight). MRI thoracic spine can beconsidered for further evaluation.7. Mild clumping of the cauda equina nerve roots, which is nonspecificbut may represent arachnoiditis. Postcontrast imaging can be consideredfor further evaluation.Electronically Signed By: Maxim Sultana03/30/2023 12:36 CDTWorkstation Name: [id number] 11:45:01* Test Item Value Reference Range Interpretation [...] 5.7- 6.4% indicates increased risk for diabetes (prediabetes)."Service Plumber ID - ADMEEG AWAKE AND [id number] 09:57:53Steph Martinez MD 03/30/2023 9:[address] Type: Inpatient, outpatient, EMUDATE(s) OF EE03/30/23DATE OF REPORT: 03/30/23MRN: [id number] of : 1970EE-1454art time: 08:36Stop time: :ICD-10: R56.9 CPT Code: 09041 (awake and asleep)HISTORY: 53 y/o female with [...] EEG recordings. Steph Elias MD, MPHNeurophysiology/Epilepsy AttendingCH[facility] EEG AWAKE AND [id number] 09:57:53Gadarcy Martinez MD 03/30/2023 9:59 AMELECTROENCEPHALOGRAM FOR [facility] EEG Type: Inpatient, outpatient, EMUDATE(s) OF EE03/30/23DATE OF REPORT: 03/30/23MRN: [id number] of : 1970EE-1454Start time: 08:36Stop time: 09:ICD-10: R56.9 CPT Code: 95698 (awake and asleep)HISTORY: 53 y/o female with [...] EEG recordings. Steph Elias MD, MPHNeurophysiology/Epilepsy AttendingCH[facility] EEG AWAKE AND [id number] 09:57:53Gadarcy Martinez MD 03/30/2023 9:59 AMELECTROENCEPHALOGRAM FOR [facility] EEG Type: Inpatient, outpatient, EMUDATE(s) OF EE03/30/23DATE OF REPORT: 03/30/23MRN: [id number] of : 1970EE-1454Start time: 08:36Stop time: 09:23ICD-10: R56.9 CPT Code: 86123 (awake and asleep)HISTORY: 53 y/o female with [...] EEG recordings. Steph Elias MD, MPHNeurophysiology/Epilepsy AttendingCH[facility] VALPROIC ACID LEVEL, [id number] 09:42:31* Test Item Value Reference Range Interpretation Comme nts VALPROIC ACID TOTAL (BEAKER) (test code = 924) 76 ug/mL 50-100 Therapeutic range for some clinical conditions may be >100 ug/mLUrinalysis w/Microscopic + Reflex to [id number] 08:43:51* Test Item Value Reference Range Interpretation Comme nts Color, UA (test code = 5778-6) Yellow Clarity, UA (test code = 5767-9) Clear Specific [place], UA (test code = 5811-5) 1.033 1.001-1.035 pH, UA (test code = 5803-2) 6.0 5.0-8.0 Protein, UA (test code = 83795-8) 30 mg/dL Negative A Glucose, UA (test code = 365) Negative Negative Ketones, UA (test code = 2514-8) Negative Negative Bilirubin, UA (test code = 91414-2) Negative Negative Blood, UA (test code = 89691-5) Small Negative A Nitrite, UA (test code = 5802-4) Negative Negative Leukocytes, UA (test code = 5799-2) Negative Negative Urobilinogen, UA (test code = 69087-3) 0.2 0.2-1.0 RBC, UA (test code = 31297-7) 51 See_Comment [Automated message] The system which [...] Occasional Squam Epithel, UA (test code = 79707-1) See_Comment [Automated message] The system which generated this result transmitted reference range: /HPF. The reference range was not used to interpret this result as normal/abnormal. Specimen Source (test code = 2795) LYNDSAY (test code = LYNDSAY) Service Plumber ID - [auto]Service Plumber ID - tech Lab Interpretation (test code = 40004-3) Abnormal [facility]inal[facility] w/Microscopic + Reflex to Culture 2023-03-30 08:43:51* Test Item Value Reference Range Interpretation Comme nts Color, UA (test code = 5778-6) Yellow Clarity, UA (test code = 5767-9) Clear Specific [place], UA (test code = 5811-5) 1.033 1.001-1.035 pH, UA (test code = 5803-2) 6.0 5.0-8.0 Protein, UA (test code = 06246-9) 30 mg/dL Negative A Glucose, UA (test code = 365) Negative Negative Ketones, UA (test code = 2514-8) Negative Negative Bilirubin, UA (test code = 85293-0) Negative Negative Blood, UA (test code = 55189-4) Small Negative A Nitrite, UA (test code = 5802-4) Negative Negative Leukocytes, UA (test code = 5799-2) Negative Negative Urobilinogen, UA (test code = 37147-2) 0.2 0.2-1.0 RBC, UA (test code = 70597-4) 51 See_Comment [Automated message] The system which [...] Occasional Squam Epithel, UA (test code = 26079-7) See_Comment [Automated message] The system which generated this result transmitted reference range: /HPF. The reference range was not used to interpret this result as normal/abnormal. Specimen Source (test code = 2795) LYNDSAY (test code = LYNDSAY) Service Plumber ID - [auto]Service Plumber ID - tech Lab Interpretation (test code = 48589-7) Abnormal [facility] CenterUrinalysis w/Microscopic + Reflex to Culture 2023-03-30 08:43:51* Test Item Value Reference Range Interpretation Comme nts Color, UA (test code = 5778-6) Yellow Clarity, UA (test code = 5767-9) Clear Specific [place], UA (test code = 5811-5) 1.033 1.001-1.035 pH, UA (test code = 5803-2) 6.0 5.0-8.0 Protein, UA (test code = 84166-9) 30 mg/dL Negative A Glucose, UA (test code = 365) Negative Negative Ketones, UA (test code = 2514-8) Negative Negative Bilirubin, UA (test code = 25895-8) Negative Negative Blood, UA (test code = 18738-3) Small Negative A Nitrite, UA (test code = 5802-4) Negative Negative Leukocytes, UA (test code = 5799-2) Negative Negative Urobilinogen, UA (test code = 56218-5) 0.2 0.2-1.0 RBC, UA (test code = 37591-0) 51 See_Comment [Automated message] The system which [...] Occasional Squam Epithel, UA (test code = 41032-9) See_Comment [Automated message] The system which generated this result transmitted reference range: /HPF. The reference range was not used to interpret this result as normal/abnormal. Specimen Source (test code = 2795) LYNDSAY (test code = LYNDSAY) Service Plumber ID - [auto]Service Plumber ID - tech Lab Interpretation (test code = 25226-7) Abnormal [facility] w/Microscopic + Reflex to Culture 2023-03-30 08:43:51* Test Item Value Reference Range Interpretation Comme nts Color, UA (test code = 5778-6) Yellow Clarity, UA (test code = 5767-9) Clear Specific [place], UA (test code = 5811-5) 1.033 1.001-1.035 pH, UA (test code = 5803-2) 6.0 5.0-8.0 Protein, UA (test code = 64756-2) 30 mg/dL Negative A Glucose, UA (test code = 365) Negative Negative Ketones, UA (test code = 2514-8) Negative Negative Bilirubin, UA (test code = 95817-3) Negative Negative Blood, UA (test code = 83916-6) Small Negative A Nitrite, UA (test code = 5802-4) Negative Negative Leukocytes, UA (test code = 5799-2) Negative Negative Urobilinogen, UA (test code = 91042-2) 0.2 0.2-1.0 RBC, UA (test code = 34847-4) 51 See_Comment [Automated message] The system which [...] Occasional Squam Epithel, UA (test code = 06672-4) See_Comment [Automated message] The system which generated this result transmitted reference range: /HPF. The reference range was not used to interpret this result as normal/abnormal. Specimen Source (test code = 2795) LYNDSAY (test code = LYNDSAY) Service Plumber ID - [auto]Service Plumber ID - tech Lab Interpretation (test code = 70575-3) [facility]normal [facility] w/Microscopic + Reflex to Culture 2023-03-30 08:43:51* Test Item Value Reference Range Interpretation Comme nts Color, UA (test code = 5778-6) Yellow Clarity, UA (test code = 5767-9) Clear Specific [place], UA (test code = 5811-5) 1.033 1.001-1.035 pH, UA (test code = 5803-2) 6.0 5.0-8.0 Protein, UA (test code = 60325-1) 30 mg/dL Negative A Glucose, UA (test code = 365) Negative Negative Ketones, UA (test code = 2514-8) Negative Negative Bilirubin, UA (test code = 60469-6) Negative Negative Blood, UA (test code = 52232-6) Small Negative A Nitrite, UA (test code = 5802-4) Negative Negative Leukocytes, UA (test code = 5799-2) Negative Negative Urobilinogen, UA (test code = 36404-8) 0.2 0.2-1.0 RBC, UA (test code = 50897-5) 51 See_Comment [Automated message] The system which [...] Occasional Squam Epithel, UA (test code = 71610-0) See_Comment [Automated message] The system which generated this result transmitted reference range: /HPF. The reference range was not used to interpret this result as normal/abnormal. Specimen Source (test code = 2795) LYNDSAY (test code = LYNDSAY) Service Plumber ID - [auto]Service Plumber ID - tech Lab Interpretation (test code = 08557-0) [facility]normal [facility]/Microscopic + Reflex to Culture 2023-03-30 08:43:51* Test Item Value Reference Range Interpretation Comme nts Color, UA (test code = 5778-6) Yellow Clarity, UA (test code = 5767-9) Clear Specific [place], UA (test code = 5811-5) 1.033 1.001-1.035 pH, UA (test code = 5803-2) 6.0 5.0-8.0 Protein, UA (test code = 81702-0) 30 mg/dL Negative A Glucose, UA (test code = 365) Negative Negative Ketones, UA (test code = 2514-8) Negative Negative Bilirubin, UA (test code = 26553-4) Negative Negative Blood, UA (test code = 46625-2) Small Negative A Nitrite, UA (test code = 5802-4) Negative Negative Leukocytes, UA (test code = 5799-2) Negative Negative Urobilinogen, UA (test code = 20444-7) 0.2 0.2-1.0 RBC, UA (test code = 33008-4) 51 See_Comment [Automated message] The system which [...] Occasional Squam Epithel, UA (test code = 91650-6) See_Comment [Automated message] The system which generated this result transmitted reference range: /HPF. The reference range was not used to interpret this result as normal/abnormal. Specimen Source (test code = 2795) LYNDSAY (test code = LYNDSAY) Service Plumber ID - [auto]Service Plumber ID - tech Lab Interpretation (test code = 36328-4) Abnormal [facility]/Microscopic + Reflex to Culture 2023-03-30 08:43:51* Test Item Value Reference Range Interpretation Comme nts Color, UA (test code = 5778-6) Yellow Clarity, UA (test code = 5767-9) Clear Specific [place], UA (test code = 5811-5) 1.033 1.001-1.035 pH, UA (test code = 5803-2) 6.0 5.0-8.0 Protein, UA (test code = 38178-4) 30 mg/dL Negative A Glucose, UA (test code = 365) Negative Negative Ketones, UA (test code = 2514-8) Negative Negative Bilirubin, UA (test code = 33184-4) Negative Negative Blood, UA (test code = 85961-8) Small Negative A Nitrite, UA (test code = 5802-4) Negative Negative Leukocytes, UA (test code = 5799-2) Negative Negative Urobilinogen, UA (test code = 23437-1) 0.2 0.2-1.0 RBC, UA (test code = 65075-0) 51 See_Comment [Automated message] The system which [...] Occasional Squam Epithel, UA (test code = 22316-7) See_Comment [Automated message] The system which generated this result transmitted reference range: /HPF. The reference range was not used to interpret this result as normal/abnormal. Specimen Source (test code = 2795) LYNDSAY (test code = LYNDSAY) Service Plumber ID - [auto]Service Plumber ID - tech Lab Interpretation (test code = 23448-1) [facility]normal [facility]/Microscopic + Reflex to Culture 2023-03-30 08:43:51* Test Item Value Reference Range Interpretation Comme nts Color, UA (test code = 5778-6) Yellow Clarity, UA (test code = 5767-9) Clear Specific [place], UA (test code = 5811-5) 1.033 1.001-1.035 pH, UA (test code = 5803-2) 6.0 5.0-8.0 Protein, UA (test code = 06216-9) 30 mg/dL Negative A Glucose, UA (test code = 365) Negative Negative Ketones, UA (test code = 2514-8) Negative Negative Bilirubin, UA (test code = 87146-5) Negative Negative Blood, UA (test code = 11381-2) Small Negative A Nitrite, UA (test code = 5802-4) Negative Negative Leukocytes, UA (test code = 5799-2) Negative Negative Urobilinogen, UA (test code = 80907-6) 0.2 0.2-1.0 RBC, UA (test code = 42108-5) 51 See_Comment [Automated message] The system which [...] Occasional Squam Epithel, UA (test code = 07333-8) See_Comment [Automated message] The system which generated this result transmitted reference range: /HPF. The reference range was not used to interpret this result as normal/abnormal. Specimen Source (test code = 2795) LYNDSAY (test code = LYNDSAY) Service Plumber ID - [auto]Service Plumber ID - tech Lab Interpretation (test code = 21284-5) Abnormal [facility] w/Microscopic + Reflex to Culture 2023-03-30 08:43:51* Test Item Value Reference Range Interpretation Comme nts Color, UA (test code = 5778-6) Yellow Clarity, UA (test code = 5767-9) Clear Specific [place], UA (test code = 5811-5) 1.033 1.001-1.035 pH, UA (test code = 5803-2) 6.0 5.0-8.0 Protein, UA (test code = 36632-4) 30 mg/dL Negative A Glucose, UA (test code = 365) Negative Negative Ketones, UA (test code = 2514-8) Negative Negative Bilirubin, UA (test code = 12960-3) Negative Negative Blood, UA (test code = 54626-1) Small Negative A Nitrite, UA (test code = 5802-4) Negative Negative Leukocytes, UA (test code = 5799-2) Negative Negative Urobilinogen, UA (test code = 19087-2) 0.2 0.2-1.0 RBC, UA (test code = 89195-2) 51 See_Comment [Automated message] The system which [...] Occasional Squam Epithel, UA (test code = 12429-2) See_Comment [Automated message] The system which generated this result transmitted reference range: /HPF. The reference range was not used to interpret this result as normal/abnormal. Specimen Source (test code = 2795) LYNDSAY (test code = LYNDSAY) Service Plumber ID - [auto]Service Plumber ID - tech Lab Interpretation (test code = 89115-4) Abnormal [facility]/Microscopic + Reflex to Culture 2023-03-30 08:43:51* Test Item Value Reference Range Interpretation Comme nts Color, UA (test code = 5778-6) Yellow Clarity, UA (test code = 5767-9) Clear Specific [place], UA (test code = 5811-5) 1.033 1.001-1.035 pH, UA (test code = 5803-2) 6.0 5.0-8.0 Protein, UA (test code = 21050-0) 30 mg/dL Negative A Glucose, UA (test code = 365) Negative Negative Ketones, UA (test code = 2514-8) Negative Negative Bilirubin, UA (test code = 78586-9) Negative Negative Blood, UA (test code = 39637-9) Small Negative A Nitrite, UA (test code = 5802-4) Negative Negative Leukocytes, UA (test code = 5799-2) Negative Negative Urobilinogen, UA (test code = 60143-9) 0.2 0.2-1.0 RBC, UA (test code = 31568-3) 51 See_Comment [Automated message] The system which [...] Occasional Squam Epithel, UA (test code = 99514-1) See_Comment [Automated message] The system which generated this result transmitted reference range: /HPF. The reference range was not used to interpret this result as normal/abnormal. Specimen Source (test code = 2795) LYNDSAY (test code = LYNDSAY) Service Plumber ID - [auto]Service Plumber ID - tech Lab Interpretation (test code = 43629-6) Abnormal [facility]/Microscopic + Reflex to Culture 2023-03-30 08:43:51* Test Item Value Reference Range Interpretation Comme nts Color, UA (test code = 5778-6) Yellow Clarity, UA (test code = 5767-9) Clear Specific [place], UA (test code = 5811-5) 1.033 1.001-1.035 pH, UA (test code = 5803-2) 6.0 5.0-8.0 Protein, UA (test code = 54985-1) 30 mg/dL Negative A Glucose, UA (test code = 365) Negative Negative Ketones, UA (test code = 2514-8) Negative Negative Bilirubin, UA (test code = 83900-0) Negative Negative Blood, UA (test code = 78472-4) Small Negative A Nitrite, UA (test code = 5802-4) Negative Negative Leukocytes, UA (test code = 5799-2) Negative Negative Urobilinogen, UA (test code = 39941-7) 0.2 0.2-1.0 RBC, UA (test code = 40573-9) 51 See_Comment [Automated message] The system which [...] Occasional Squam Epithel, UA (test code = 05264-5) See_Comment [Automated message] The system which generated this result transmitted reference range: /HPF. The reference range was not used to interpret this result as normal/abnormal. Specimen Source (test code = 2795) LYNDSAY (test code = LYNDSAY) Service Plumber ID - [auto]Service Plumber ID - tech Lab Interpretation (test code = 14765-9) [facility] 08:43:51* Test Item Value Reference Range Interpretation Comme nts Color, UA (test code = 5778-6) Yellow Clarity, UA (test code = 5767-9) Clear Specific [place], UA (test code = 5811-5) 1.033 1.001-1.035 pH, UA (test code = 5803-2) 6.0 5.0-8.0 Protein, UA (test code = 82540-2) 30 mg/dL Negative A Glucose, UA (test code = 365) Negative Negative Ketones, UA (test code = 2514-8) Negative Negative Bilirubin, UA (test code = 92398-7) Negative Negative Blood, UA (test code = 43000-6) Small Negative A Nitrite, UA (test code = 5802-4) Negative Negative Leukocytes, UA (test code = 5799-2) Negative Negative Urobilinogen, UA (test code = 96251-9) 0.2 0.2-1.0 RBC, UA (test code = 44394-3) 51 See_Comment [Automated message] The system which [...] Occasional Squam Epithel, UA (test code = 68407-5) See_Comment [Automated message] The system which generated this result transmitted reference range: /HPF. The reference range was not used to interpret this result as normal/abnormal. Specimen Source (test code = 2795) LYNDSAY (test code = LYNDSAY) Service Plumber ID - [auto]Service Plumber ID - tech Lab Interpretation (test code = 33143-9) [facility] 2023-03-30 08:43:51* Test Item Value Reference Range Interpretation Comme nts Color, UA (test code = 5778-6) Yellow Clarity, UA (test code = 5767-9) Clear Specific [place], UA (test code = 5811-5) 1.033 1.001-1.035 pH, UA (test code = 5803-2) 6.0 5.0-8.0 Protein, UA (test code = 42420-9) 30 mg/dL Negative A Glucose, UA (test code = 365) Negative Negative Ketones, UA (test code = 2514-8) Negative Negative Bilirubin, UA (test code = 85867-6) Negative Negative Blood, UA (test code = 61052-9) Small Negative A Nitrite, UA (test code = 5802-4) Negative Negative Leukocytes, UA (test code = 5799-2) Negative Negative Urobilinogen, UA (test code = 46253-1) 0.2 0.2-1.0 RBC, UA (test code = 66226-5) 51 See_Comment [Automated message] The system which [...] Occasional Squam Epithel, UA (test code = 88054-8) See_Comment [Automated message] The system which generated this result transmitted reference range: /HPF. The reference range was not used to interpret this result as normal/abnormal. Specimen Source (test code = 2795) LYNDSAY (test code = LYNDSAY) Service Plumber ID - [auto]Service Plumber ID - tech Lab Interpretation (test code = 77737-3) [facility] 2023-[facility]-30 08:43:51* Test Item Value Reference Range Interpretation Comme nts Color, UA (test code = 5778-6) Yellow Clarity, UA (test code = 5767-9) Clear Specific [place], UA (test code = 5811-5) 1.033 1.001-1.035 pH, UA (test code = 5803-2) 6.0 5.0-8.0 Protein, UA (test code = 56110-5) 30 mg/dL Negative A Glucose, UA (test code = 365) Negative Negative Ketones, UA (test code = 2514-8) Negative Negative Bilirubin, UA (test code = 72875-2) Negative Negative Blood, UA (test code = 31445-1) Small Negative A Nitrite, UA (test code = 5802-4) Negative Negative Leukocytes, UA (test code = 5799-2) Negative Negative Urobilinogen, UA (test code = 99130-3) 0.2 0.2-1.0 RBC, UA (test code = 57124-3) 51 See_Comment [Automated message] The system which [...] Occasional Squam Epithel, UA (test code = 35625-3) See_Comment [Automated message] The system which generated this result transmitted reference range: /HPF. The reference range was not used to interpret this result as normal/abnormal. Specimen Source (test code = 2795) LYNDSAY (test code = LYNDSAY) Service Plumber ID - [auto]Service Plumber ID - tech Lab Interpretation (test code = 01654-4) [facility] Reflex [facility] Culture 2023-03-30 08:43:51* Test Item Value Reference Range Interpretation Comme nts Color, UA (test code = 5778-6) Yellow Clarity, UA (test code = 5767-9) Clear Specific [place], UA (test code = 5811-5) 1.033 1.001-1.035 pH, UA (test code = 5803-2) 6.0 5.0-8.0 Protein, UA (test code = 32836-8) 30 mg/dL Negative A Glucose, UA (test code = 365) Negative Negative Ketones, UA (test code = 2514-8) Negative Negative Bilirubin, UA (test code = 08314-7) Negative Negative Blood, UA (test code = 33912-9) Small Negative A Nitrite, UA (test code = 5802-4) Negative Negative Leukocytes, UA (test code = 5799-2) Negative Negative Urobilinogen, UA (test code = 01608-9) 0.2 0.2-1.0 RBC, UA (test code = 63020-9) 51 See_Comment [Automated message] The system which [...] Occasional Squam Epithel, UA (test code = 28910-3) See_Comment [Automated message] The system which generated this result transmitted reference range: /HPF. The reference range was not used to interpret this result as normal/abnormal. Specimen Source (test code = 2795) LYNDSAY (test code = LYNDSAY) Service Plumber ID - [auto]Service Plumber ID - tech Lab Interpretation (test code = 09968-8) [facility] Reflex to Culture 2023-03-30 08:43:51* Test Item Value Reference Range Interpretation Comme nts Color, UA (test code = 5778-6) Yellow Clarity, UA (test code = 5767-9) Clear Specific [place], UA (test code = 5811-5) 1.033 1.001-1.035 pH, UA (test code = 5803-2) 6.0 5.0-8.0 Protein, UA (test code = 49992-2) 30 mg/dL Negative A Glucose, UA (test code = 365) Negative Negative Ketones, UA (test code = 2514-8) Negative Negative Bilirubin, UA (test code = 71745-1) Negative Negative Blood, UA (test code = 42695-9) Small Negative A Nitrite, UA (test code = 5802-4) Negative Negative Leukocytes, UA (test code = 5799-2) Negative Negative Urobilinogen, UA (test code = 67419-5) 0.2 0.2-1.0 RBC, UA (test code = 15636-8) 51 See_Comment [Automated message] The system which [...] Occasional Squam Epithel, UA (test code = 12844-5) See_Comment [Automated message] The system which generated this result transmitted reference range: /HPF. The reference range was not used to interpret this result as normal/abnormal. Specimen Source (test code = 2795) LYNDSAY (test code = LYNDSAY) Service Plumber ID - [auto]Service Plumber ID - tech Lab Interpretation (test code = 42971-4) [facility] Reflex [facility] Culture 2023-03-30 08:43:51* Test Item Value Reference Range Interpretation Comme nts Color, UA (test code = 5778-6) Yellow Clarity, UA (test code = 5767-9) Clear Specific [place], UA (test code = 5811-5) 1.033 1.001-1.035 pH, UA (test code = 5803-2) 6.0 5.0-8.0 Protein, UA (test code = 58917-9) 30 mg/dL Negative A Glucose, UA (test code = 365) Negative Negative Ketones, UA (test code = 2514-8) Negative Negative Bilirubin, UA (test code = 22503-1) Negative Negative Blood, UA (test code = 35877-5) Small Negative A Nitrite, UA (test code = 5802-4) Negative Negative Leukocytes, UA (test code = 5799-2) Negative Negative Urobilinogen, UA (test code = 62288-6) 0.2 0.2-1.0 RBC, UA (test code = 50876-8) 51 See_Comment [Automated message] The system which [...] Occasional Squam Epithel, UA (test code = 45630-9) See_Comment [Automated message] The system which generated this result transmitted reference range: /HPF. The reference range was not used to interpret this result as normal/abnormal. Specimen Source (test code = 2795) YLNDSAY (test code = LYNDSAY) Service Plumber ID - [auto]Service Plumber ID - tech Lab Interpretation (test code = 23494-6) [facility] Reflex to Culture 2023-03-30 08:43:51* Test Item Value Reference Range Interpretation Comme nts Color, UA (test code = 5778-6) Yellow Clarity, UA (test code = 5767-9) Clear Specific [place], UA (test code = 5811-5) 1.033 1.001-1.035 pH, UA (test code = 5803-2) 6.0 5.0-8.0 Protein, UA (test code = 99178-7) 30 mg/dL Negative A Glucose, UA (test code = 365) Negative Negative Ketones, UA (test code = 2514-8) Negative Negative Bilirubin, UA (test code = 17851-1) Negative Negative Blood, UA (test code = 10295-8) Small Negative A Nitrite, UA (test code = 5802-4) Negative Negative Leukocytes, UA (test code = 5799-2) Negative Negative Urobilinogen, UA (test code = 67494-5) 0.2 0.2-1.0 RBC, UA (test code = 90921-6) 51 See_Comment [Automated message] The system which [...] Occasional Squam Epithel, UA (test code = 23819-2) See_Comment [Automated message] The system which generated this result transmitted reference range: /HPF. The reference range was not used to interpret this result as normal/abnormal. Specimen Source (test code = 2795) LYNDSAY (test code = LYNDSAY) Service Plumber ID - [auto]Service Plumber ID - tech Lab Interpretation (test code = 96355-4) [facility] Reflex [facility] Culture 2023-03-30 08:43:51* Test Item Value Reference Range Interpretation Comme nts Color, UA (test code = 5778-6) Yellow Clarity, UA (test code = 5767-9) Clear Specific [place], UA (test code = 5811-5) 1.033 1.001-1.035 pH, UA (test code = 5803-2) 6.0 5.0-8.0 Protein, UA (test code = 28639-5) 30 mg/dL Negative A Glucose, UA (test code = 365) Negative Negative Ketones, UA (test code = 2514-8) Negative Negative Bilirubin, UA (test code = 11265-5) Negative Negative Blood, UA (test code = 92404-5) Small Negative A Nitrite, UA (test code = 5802-4) Negative Negative Leukocytes, UA (test code = 5799-2) Negative Negative Urobilinogen, UA (test code = 32061-1) 0.2 0.2-1.0 RBC, UA (test code = 62999-8) 51 See_Comment [Automated message] The system which [...] Occasional Squam Epithel, UA (test code = 64605-5) See_Comment [Automated message] The system which generated this result transmitted reference range: /HPF. The reference range was not used to interpret this result as normal/abnormal. Specimen Source (test code = 2795) LYNDSAY (test code = LYNDSAY) Service Plumber ID - [auto]Service Plumber ID - tech Lab Interpretation (test code = 26866-5) [facility] Reflex [facility] Culture 2023-03-30 08:43:51* Test Item Value Reference Range Interpretation Comme nts Color, UA (test code = 5778-6) Yellow Clarity, UA (test code = 5767-9) Clear Specific [place], UA (test code = 5811-5) 1.033 1.001-1.035 pH, UA (test code = 5803-2) 6.0 5.0-8.0 Protein, UA (test code = 59736-4) 30 mg/dL Negative A Glucose, UA (test code = 365) Negative Negative Ketones, UA (test code = 2514-8) Negative Negative Bilirubin, UA (test code = 40089-2) Negative Negative Blood, UA (test code = 81374-4) Small Negative A Nitrite, UA (test code = 5802-4) Negative Negative Leukocytes, UA (test code = 5799-2) Negative Negative Urobilinogen, UA (test code = 51771-5) 0.2 0.2-1.0 RBC, UA (test code = 91167-8) 51 See_Comment [Automated message] The system which [...] Occasional Squam Epithel, UA (test code = 94355-7) See_Comment [Automated message] The system which generated this result transmitted reference range: /HPF. The reference range was not used to interpret this result as normal/abnormal. Specimen Source (test code = 2795) LYNDSAY (test code = LYNDSAY) Service Plumber ID - [auto]Service Plumber ID - tech Lab Interpretation (test code = 36723-3) [facility] Reflex [facility] Culture 2023-03-30 08:43:51* Test Item Value Reference Range Interpretation Comme nts Color, UA (test code = 5778-6) Yellow Clarity, UA (test code = 5767-9) Clear Specific [place], UA (test code = 5811-5) 1.033 1.001-1.035 pH, UA (test code = 5803-2) 6.0 5.0-8.0 Protein, UA (test code = 49442-7) 30 mg/dL Negative A Glucose, UA (test code = 365) Negative Negative Ketones, UA (test code = 2514-8) Negative Negative Bilirubin, UA (test code = 44744-9) Negative Negative Blood, UA (test code = 60878-7) Small Negative A Nitrite, UA (test code = 5802-4) Negative Negative Leukocytes, UA (test code = 5799-2) Negative Negative Urobilinogen, UA (test code = 41870-7) 0.2 0.2-1.0 RBC, UA (test code = 77462-0) 51 See_Comment [Automated message] The system which [...] Occasional Squam Epithel, UA (test code = 56179-8) See_Comment [Automated message] The system which generated this result transmitted reference range: /HPF. The reference range was not used to interpret this result as normal/abnormal. Specimen Source (test code = 2795) LYNDSAY (test code = LYNDSAY) Service Plumber ID - [auto]Service Plumber ID - tech Lab Interpretation (test code = 32434-4) [facility] Ref[facility] Culture 2023-03-30 08:43:51* Test Item Value Reference Range Interpretation Comme nts Color, UA (test code = 5778-6) Yellow Clarity, UA (test code = 5767-9) Clear Specific [place], UA (test code = 5811-5) 1.033 1.001-1.035 pH, UA (test code = 5803-2) 6.0 5.0-8.0 Protein, UA (test code = 42010-8) 30 mg/dL Negative A Glucose, UA (test code = 365) Negative Negative Ketones, UA (test code = 2514-8) Negative Negative Bilirubin, UA (test code = 30155-1) Negative Negative Blood, UA (test code = 88235-6) Small Negative A Nitrite, UA (test code = 5802-4) Negative Negative Leukocytes, UA (test code = 5799-2) Negative Negative Urobilinogen, UA (test code = 98042-5) 0.2 0.2-1.0 RBC, UA (test code = 41866-3) 51 See_Comment [Automated message] The system which [...] Occasional Squam Epithel, UA (test code = 52746-0) See_Comment [Automated message] The system which generated this result transmitted reference range: /HPF. The reference range was not used to interpret this result as normal/abnormal. Specimen Source (test code = 2795) LYNDSAY (test code = LYNDSAY) Service Plumber ID - [auto]Service Plumber ID - tech Lab Interpretation (test code = 10006-7) [facility] Reflex to Culture 2023-03-30 08:43:51* Test Item Value Reference Range Interpretation Comme nts Color, UA (test code = 5778-6) Yellow Clarity, UA (test code = 5767-9) Clear Specific [place], UA (test code = 5811-5) 1.033 1.001-1.035 pH, UA (test code = 5803-2) 6.0 5.0-8.0 Protein, UA (test code = 96972-5) 30 mg/dL Negative A Glucose, UA (test code = 365) Negative Negative Ketones, UA (test code = 2514-8) Negative Negative Bilirubin, UA (test code = 98335-9) Negative Negative Blood, UA (test code = 47503-9) Small Negative A Nitrite, UA (test code = 5802-4) Negative Negative Leukocytes, UA (test code = 5799-2) Negative Negative Urobilinogen, UA (test code = 92258-3) 0.2 0.2-1.0 RBC, UA (test code = 08277-7) 51 See_Comment [Automated message] The system which [...] Occasional Squam Epithel, UA (test code = 99142-7) See_Comment [Automated message] The system which generated this result transmitted reference range: /HPF. The reference range was not used to interpret this result as normal/abnormal. Specimen Source (test code = 2795) LYNDSAY (test code = LYNDSAY) Service Plumber ID - [auto]Service Plumber ID - tech Lab Interpretation (test code = 97853-3) [facility] Ref[facility] Culture 2023-03-30 08:43:51* Test Item Value Reference Range Interpretation Comme nts Color, UA (test code = 5778-6) Yellow Clarity, UA (test code = 5767-9) Clear Specific [place], UA (test code = 5811-5) 1.033 1.001-1.035 pH, UA (test code = 5803-2) 6.0 5.0-8.0 Protein, UA (test code = 82030-6) 30 mg/dL Negative A Glucose, UA (test code = 365) Negative Negative Ketones, UA (test code = 2514-8) Negative Negative Bilirubin, UA (test code = 04979-6) Negative Negative Blood, UA (test code = 88957-8) Small Negative A Nitrite, UA (test code = 5802-4) Negative Negative Leukocytes, UA (test code = 5799-2) Negative Negative Urobilinogen, UA (test code = 90066-7) 0.2 0.2-1.0 RBC, UA (test code = 00856-8) 51 See_Comment [Automated message] The system which [...] Occasional Squam Epithel, UA (test code = 68496-6) See_Comment [Automated message] The system which generated this result transmitted reference range: /HPF. The reference range was not used to interpret this result as normal/abnormal. Specimen Source (test code = 2795) LYNDSAY (test code = LYNDSAY) Service Plumber ID - [auto]Service Plumber ID - tech Lab Interpretation (test code = 32103-9) [facility] Reflex to Culture 2023-03-30 08:43:51* Test Item Value Reference Range Interpretation Comme nts Color, UA (test code = 5778-6) Yellow Clarity, UA (test code = 5767-9) Clear Specific [place], UA (test code = 5811-5) 1.033 1.001-1.035 pH, UA (test code = 5803-2) 6.0 5.0-8.0 Protein, UA (test code = 37512-3) 30 mg/dL Negative A Glucose, UA (test code = 365) Negative Negative Ketones, UA (test code = 2514-8) Negative Negative Bilirubin, UA (test code = 29190-1) Negative Negative Blood, UA (test code = 85216-0) Small Negative A Nitrite, UA (test code = 5802-4) Negative Negative Leukocytes, UA (test code = 5799-2) Negative Negative Urobilinogen, UA (test code = 01187-1) 0.2 0.2-1.0 RBC, UA (test code = 24809-8) 51 See_Comment [Automated message] The system which [...] Occasional Squam Epithel, UA (test code = 10069-8) See_Comment [Automated message] The system which generated this result transmitted reference range: /HPF. The reference range was not used to interpret this result as normal/abnormal. Specimen Source (test code = 2795) LYNDSAY (test code = LYNDSAY) Service Plumber ID - [auto]Service Plumber ID - tech Lab Interpretation (test code = 96848-7) [facility] Reflex [facility] Culture 2023-03-30 08:43:51* Test Item Value Reference Range Interpretation Comme nts Color, UA (test code = 5778-6) Yellow Clarity, UA (test code = 5767-9) Clear Specific [place], UA (test code = 5811-5) 1.033 1.001-1.035 pH, UA (test code = 5803-2) 6.0 5.0-8.0 Protein, UA (test code = 90218-7) 30 mg/dL Negative A Glucose, UA (test code = 365) Negative Negative Ketones, UA (test code = 2514-8) Negative Negative Bilirubin, UA (test code = 24639-2) Negative Negative Blood, UA (test code = 85444-7) Small Negative A Nitrite, UA (test code = 5802-4) Negative Negative Leukocytes, UA (test code = 5799-2) Negative Negative Urobilinogen, UA (test code = 96595-2) 0.2 0.2-1.0 RBC, UA (test code = 32596-8) 51 See_Comment [Automated message] The system which [...] Occasional Squam Epithel, UA (test code = 09197-0) See_Comment [Automated message] The system which generated this result transmitted reference range: /HPF. The reference range was not used to interpret this result as normal/abnormal. Specimen Source (test code = 2795) LYNDSAY (test code = LYNDSAY) Service Plumber ID - [auto]Service Plumber ID - tech Lab Interpretation (test code = 24251-5) [facility] Reflex to Culture 2023-03-30 08:43:51* Test Item Value Reference Range Interpretation Comme nts Color, UA (test code = 5778-6) Yellow Clarity, UA (test code = 5767-9) Clear Specific [place], UA (test code = 5811-5) 1.033 1.001-1.035 pH, UA (test code = 5803-2) 6.0 5.0-8.0 Protein, UA (test code = 11899-0) 30 mg/dL Negative A Glucose, UA (test code = 365) Negative Negative Ketones, UA (test code = 2514-8) Negative Negative Bilirubin, UA (test code = 76706-4) Negative Negative Blood, UA (test code = 51680-4) Small Negative A Nitrite, UA (test code = 5802-4) Negative Negative Leukocytes, UA (test code = 5799-2) Negative Negative Urobilinogen, UA (test code = 76293-0) 0.2 0.2-1.0 RBC, UA (test code = 40289-7) 51 See_Comment [Automated message] The system which [...] Occasional Squam Epithel, UA (test code = 22415-5) See_Comment [Automated message] The system which generated this result transmitted reference range: /HPF. The reference range was not used to interpret this result as normal/abnormal. Specimen Source (test code = 2795) LYNDSAY (test code = LYNDSAY) Service Plumber ID - [auto]Service Plumber ID - tech Lab Interpretation (test code = 55194-8) [facility] Reflex to Culture 2023-03-30 08:43:51* Test Item Value Reference Range Interpretation Comme nts Color, UA (test code = 5778-6) Yellow Clarity, UA (test code = 5767-9) Clear Specific [place], UA (test code = 5811-5) 1.033 1.001-1.035 pH, UA (test code = 5803-2) 6.0 5.0-8.0 Protein, UA (test code = 50645-9) 30 mg/dL Negative A Glucose, UA (test code = 365) Negative Negative Ketones, UA (test code = 2514-8) Negative Negative Bilirubin, UA (test code = 98323-1) Negative Negative Blood, UA (test code = 24246-9) Small Negative A Nitrite, UA (test code = 5802-4) Negative Negative Leukocytes, UA (test code = 5799-2) Negative Negative Urobilinogen, UA (test code = 75516-1) 0.2 0.2-1.0 RBC, UA (test code = 45868-0) 51 See_Comment [Automated message] The system which [...] Occasional Squam Epithel, UA (test code = 36997-8) See_Comment [Automated message] The system which generated this result transmitted reference range: /HPF. The reference range was not used to interpret this result as normal/abnormal. Specimen Source (test code = 2795) LYNDSAY (test code = LYNDSAY) Service Plumber ID - [auto]Service Plumber ID - tech Lab Interpretation (test code = 06802-4) [facility] Reflex to Culture 2023-03-30 08:43:51* Test Item Value Reference Range Interpretation Comme nts Color, UA (test code = 5778-6) Yellow Clarity, UA (test code = 5767-9) Clear Specific [place], UA (test code = 5811-5) 1.033 1.001-1.035 pH, UA (test code = 5803-2) 6.0 5.0-8.0 Protein, UA (test code = 05058-7) 30 mg/dL Negative A Glucose, UA (test code = 365) Negative Negative Ketones, UA (test code = 2514-8) Negative Negative Bilirubin, UA (test code = 69978-9) Negative Negative Blood, UA (test code = 94416-9) Small Negative A Nitrite, UA (test code = 5802-4) Negative Negative Leukocytes, UA (test code = 5799-2) Negative Negative Urobilinogen, UA (test code = 83974-1) 0.2 0.2-1.0 RBC, UA (test code = 37472-2) 51 See_Comment [Automated message] The system which [...] Occasional Squam Epithel, UA (test code = 28017-9) See_Comment [Automated message] The system which generated this result transmitted reference range: /HPF. The reference range was not used to interpret this result as normal/abnormal. Specimen Source (test code = 2795) LYNDSAY (test code = LYNDSAY) Service Plumber ID - [auto]Service Plumber ID - tech Lab Interpretation (test code = 25251-6) [facility] Ref[facility] Culture 2023-03-30 08:43:51* Test Item Value Reference Range Interpretation Comme nts Color, UA (test code = 5778-6) Yellow Clarity, UA (test code = 5767-9) Clear Specific [place], UA (test code = 5811-5) 1.033 1.001-1.035 pH, UA (test code = 5803-2) 6.0 5.0-8.0 Protein, UA (test code = 70489-4) 30 mg/dL Negative A Glucose, UA (test code = 365) Negative Negative Ketones, UA (test code = 2514-8) Negative Negative Bilirubin, UA (test code = 50138-4) Negative Negative Blood, UA (test code = 93054-8) Small Negative A Nitrite, UA (test code = 5802-4) Negative Negative Leukocytes, UA (test code = 5799-2) Negative Negative Urobilinogen, UA (test code = 49824-9) 0.2 0.2-1.0 RBC, UA (test code = 15425-9) 51 See_Comment [Automated message] The system which [...] Occasional Squam Epithel, UA (test code = 63733-7) See_Comment [Automated message] The system which generated this result transmitted reference range: /HPF. The reference range was not used to interpret this result as normal/abnormal. Specimen Source (test code = 2795) LYNDSAY (test code = LYNDSAY) Service Plumber ID - [auto]Service Plumber ID - tech Lab Interpretation (test code = 41018-8) [facility] Culture 2023-[facility]-30 08:43:51* Test Item Value Reference Range Interpretation Comme nts Color, UA (test code = 5778-6) Yellow Clarity, UA (test code = 5767-9) Clear Specific [place], UA (test code = 5811-5) 1.033 1.001-1.035 pH, UA (test code = 5803-2) 6.0 5.0-8.0 Protein, UA (test code = 62575-8) 30 mg/dL Negative A Glucose, UA (test code = 365) Negative Negative Ketones, UA (test code = 2514-8) Negative Negative Bilirubin, UA (test code = 93127-4) Negative Negative Blood, UA (test code = 31310-4) Small Negative A Nitrite, UA (test code = 5802-4) Negative Negative Leukocytes, UA (test code = 5799-2) Negative Negative Urobilinogen, UA (test code = 15945-4) 0.2 0.2-1.0 RBC, UA (test code = 85298-1) 51 See_Comment [Automated message] The system which [...] Occasional Squam Epithel, UA (test code = 52970-4) See_Comment [Automated message] The system which generated this result transmitted reference range: /HPF. The reference range was not used to interpret this result as normal/abnormal. Specimen Source (test code = 2795) LYNDSAY (test code = LYNDSAY) Service Plumber ID - [auto]Service Plumber ID - tech Lab Interpretation (test code = 69031-4) [facility] Reflex [facility] Culture 2023-03-30 08:43:51* Test Item Value Reference Range Interpretation Comme nts Color, UA (test code = 5778-6) Yellow Clarity, UA (test code = 5767-9) Clear Specific [place], UA (test code = 5811-5) 1.033 1.001-1.035 pH, UA (test code = 5803-2) 6.0 5.0-8.0 Protein, UA (test code = 09083-2) 30 mg/dL Negative A Glucose, UA (test code = 365) Negative Negative Ketones, UA (test code = 2514-8) Negative Negative Bilirubin, UA (test code = 40960-5) Negative Negative Blood, UA (test code = 59060-1) Small Negative A Nitrite, UA (test code = 5802-4) Negative Negative Leukocytes, UA (test code = 5799-2) Negative Negative Urobilinogen, UA (test code = 38500-1) 0.2 0.2-1.0 RBC, UA (test code = 78504-2) 51 See_Comment [Automated message] The system which [...] Occasional Squam Epithel, UA (test code = 45263-0) See_Comment [Automated message] The system which generated this result transmitted reference range: /HPF. The reference range was not used to interpret this result as normal/abnormal. Specimen Source (test code = 2795) LYNDSAY (test code = LYNDSAY) Service Plumber ID - [auto]Service Plumber ID - tech Lab Interpretation (test code = 25131-5) [facility]30 08:43:51* Test Item Value Reference Range Interpretation Comme nts Color, UA (test code = 5778-6) Yellow Clarity, UA (test code = 5767-9) Clear Specific [place], UA (test code = 5811-5) 1.033 1.001-1.035 pH, UA (test code = 5803-2) 6.0 5.0-8.0 Protein, UA (test code = 48655-9) 30 mg/dL Negative A Glucose, UA (test code = 365) Negative Negative Ketones, UA (test code = 2514-8) Negative Negative Bilirubin, UA (test code = 88185-9) Negative Negative Blood, UA (test code = 16402-6) Small Negative A Nitrite, UA (test code = 5802-4) Negative Negative Leukocytes, UA (test code = 5799-2) Negative Negative Urobilinogen, UA (test code = 05143-6) 0.2 0.2-1.0 RBC, UA (test code = 29960-1) 51 See_Comment [Automated message] The system which [...] Occasional Squam Epithel, UA (test code = 72084-1) See_Comment [Automated message] The system which generated this result transmitted reference range: /HPF. The reference range was not used to interpret this result as normal/abnormal. Specimen Source (test code = 2795) LYNDSAY (test code = LYNDSAY) Service Plumber ID - [auto]Service Plumber ID - tech Lab Interpretation (test code = 38929-2) [facility] Culture 2023-03-30 08:43:51* Test Item Value Reference Range Interpretation Comme nts Color, UA (test code = 5778-6) Yellow Clarity, UA (test code = 5767-9) Clear Specific [place], UA (test code = 5811-5) 1.033 1.001-1.035 pH, UA (test code = 5803-2) 6.0 5.0-8.0 Protein, UA (test code = 32310-0) 30 mg/dL Negative A Glucose, UA (test code = 365) Negative Negative Ketones, UA (test code = 2514-8) Negative Negative Bilirubin, UA (test code = 91031-0) Negative Negative Blood, UA (test code = 45822-2) Small Negative A Nitrite, UA (test code = 5802-4) Negative Negative Leukocytes, UA (test code = 5799-2) Negative Negative Urobilinogen, UA (test code = 15074-3) 0.2 0.2-1.0 RBC, UA (test code = 31040-3) 51 See_Comment [Automated message] The system which [...] Occasional Squam Epithel, UA (test code = 54188-0) See_Comment [Automated message] The system which generated this result transmitted reference range: /HPF. The reference range was not used to interpret this result as normal/abnormal. Specimen Source (test code = 2795) LYNDSAY (test code = LYNDSAY) Service Plumber ID - [auto]Service Plumber ID - tech Lab Interpretation (test code = 35283-9) [facility] Reflex to Culture 2023-03-30 08:43:51* Test Item Value Reference Range Interpretation Comme nts Color, UA (test code = 5778-6) Yellow Clarity, UA (test code = 5767-9) Clear Specific [place], UA (test code = 5811-5) 1.033 1.001-1.035 pH, UA (test code = 5803-2) 6.0 5.0-8.0 Protein, UA (test code = 07654-4) 30 mg/dL Negative A Glucose, UA (test code = 365) Negative Negative Ketones, UA (test code = 2514-8) Negative Negative Bilirubin, UA (test code = 16445-8) Negative Negative Blood, UA (test code = 24203-3) Small Negative A Nitrite, UA (test code = 5802-4) Negative Negative Leukocytes, UA (test code = 5799-2) Negative Negative Urobilinogen, UA (test code = 12175-0) 0.2 0.2-1.0 RBC, UA (test code = 85879-1) 51 See_Comment [Automated message] The system which [...] Occasional Squam Epithel, UA (test code = 81704-7) See_Comment [Automated message] The system which generated this result transmitted reference range: /HPF. The reference range was not used to interpret this result as normal/abnormal. Specimen Source (test code = 2795) LYNDSAY (test code = LYNDSAY) Service Plumber ID - [auto]Service Plumber ID - tech Lab Interpretation (test code = 74204-7) [facility] Reflex [facility] Culture 2023-03-30 08:43:51* Test Item Value Reference Range Interpretation Comme nts Color, UA (test code = 5778-6) Yellow Clarity, UA (test code = 5767-9) Clear Specific [place], UA (test code = 5811-5) 1.033 1.001-1.035 pH, UA (test code = 5803-2) 6.0 5.0-8.0 Protein, UA (test code = 73192-3) 30 mg/dL Negative A Glucose, UA (test code = 365) Negative Negative Ketones, UA (test code = 2514-8) Negative Negative Bilirubin, UA (test code = 43616-0) Negative Negative Blood, UA (test code = 94522-8) Small Negative A Nitrite, UA (test code = 5802-4) Negative Negative Leukocytes, UA (test code = 5799-2) Negative Negative Urobilinogen, UA (test code = 78331-9) 0.2 0.2-1.0 RBC, UA (test code = 35264-0) 51 See_Comment [Automated message] The system which [...] Occasional Squam Epithel, UA (test code = 02882-9) See_Comment [Automated message] The system which generated this result transmitted reference range: /HPF. The reference range was not used to interpret this result as normal/abnormal. Specimen Source (test code = 2795) LYNDSAY (test code = LYNDSAY) Service Plumber ID - [auto]Service Plumber ID - tech Lab Interpretation (test code = 44222-1) [facility] Reflex to Culture 2023-03-30 08:43:51* Test Item Value Reference Range Interpretation Comme nts Color, UA (test code = 5778-6) Yellow Clarity, UA (test code = 5767-9) Clear Specific [place], UA (test code = 5811-5) 1.033 1.001-1.035 pH, UA (test code = 5803-2) 6.0 5.0-8.0 Protein, UA (test code = 33846-8) 30 mg/dL Negative A Glucose, UA (test code = 365) Negative Negative Ketones, UA (test code = 2514-8) Negative Negative Bilirubin, UA (test code = 03903-6) Negative Negative Blood, UA (test code = 75280-8) Small Negative A Nitrite, UA (test code = 5802-4) Negative Negative Leukocytes, UA (test code = 5799-2) Negative Negative Urobilinogen, UA (test code = 01218-0) 0.2 0.2-1.0 RBC, UA (test code = 19530-4) 51 See_Comment [Automated message] The system which [...] Occasional Squam Epithel, UA (test code = 60570-8) See_Comment [Automated message] The system which generated this result transmitted reference range: /HPF. The reference range was not used to interpret this result as normal/abnormal. Specimen Source (test code = 2795) LYNDSAY (test code = LYNDSAY) Service Plumber ID - [auto]Service Plumber ID - tech Lab Interpretation (test code = 32240-3) [facility] Reflex to Culture 2023-03-30 08:43:51* Test Item Value Reference Range Interpretation Comme nts Color, UA (test code = 5778-6) Yellow Clarity, UA (test code = 5767-9) Clear Specific [place], UA (test code = 5811-5) 1.033 1.001-1.035 pH, UA (test code = 5803-2) 6.0 5.0-8.0 Protein, UA (test code = 66056-4) 30 mg/dL Negative A Glucose, UA (test code = 365) Negative Negative Ketones, UA (test code = 2514-8) Negative Negative Bilirubin, UA (test code = 18194-9) Negative Negative Blood, UA (test code = 71780-6) Small Negative A Nitrite, UA (test code = 5802-4) Negative Negative Leukocytes, UA (test code = 5799-2) Negative Negative Urobilinogen, UA (test code = 70493-4) 0.2 0.2-1.0 RBC, UA (test code = 09481-8) 51 See_Comment [Automated message] The system which [...] Occasional Squam Epithel, UA (test code = 05387-9) See_Comment [Automated message] The system which generated this result transmitted reference range: /HPF. The reference range was not used to interpret this result as normal/abnormal. Specimen Source (test code = 2795) LYNDSAY (test code = LYNDSAY) Service Plumber ID - [auto]Service Plumber ID - tech Lab Interpretation (test code = 19697-7) [facility] Reflex to Culture 2023-03-30 08:43:51* Test Item Value Reference Range Interpretation Comme nts Color, UA (test code = 5778-6) Yellow Clarity, UA (test code = 5767-9) Clear Specific [place], UA (test code = 5811-5) 1.033 1.001-1.035 pH, UA (test code = 5803-2) 6.0 5.0-8.0 Protein, UA (test code = 71711-3) 30 mg/dL Negative A Glucose, UA (test code = 365) Negative Negative Ketones, UA (test code = 2514-8) Negative Negative Bilirubin, UA (test code = 67073-3) Negative Negative Blood, UA (test code = 42535-5) Small Negative A Nitrite, UA (test code = 5802-4) Negative Negative Leukocytes, UA (test code = 5799-2) Negative Negative Urobilinogen, UA (test code = 71113-3) 0.2 0.2-1.0 RBC, UA (test code = 58841-6) 51 See_Comment [Automated message] The system which [...] Occasional Squam Epithel, UA (test code = 58181-6) See_Comment [Automated message] The system which generated this result transmitted reference range: /HPF. The reference range was not used to interpret this result as normal/abnormal. Specimen Source (test code = 2795) LYNDSAY (test code = LYNDSAY) Service Plumber ID - [auto]Service Plumber ID - tech Lab Interpretation (test code = 10141-1) [facility] Reflex [facility] Culture 2023-03-30 08:43:51* Test Item Value Reference Range Interpretation Comme nts Color, UA (test code = 5778-6) Yellow Clarity, UA (test code = 5767-9) Clear Specific [place], UA (test code = 5811-5) 1.033 1.001-1.035 pH, UA (test code = 5803-2) 6.0 5.0-8.0 Protein, UA (test code = 40246-5) 30 mg/dL Negative A Glucose, UA (test code = 365) Negative Negative Ketones, UA (test code = 2514-8) Negative Negative Bilirubin, UA (test code = 84265-8) Negative Negative Blood, UA (test code = 72519-5) Small Negative A Nitrite, UA (test code = 5802-4) Negative Negative Leukocytes, UA (test code = 5799-2) Negative Negative Urobilinogen, UA (test code = 85907-7) 0.2 0.2-1.0 RBC, UA (test code = 22406-9) 51 See_Comment [Automated message] The system which [...] Occasional Squam Epithel, UA (test code = 33896-1) See_Comment [Automated message] The system which generated this result transmitted reference range: /HPF. The reference range was not used to interpret this result as normal/abnormal. Specimen Source (test code = 2795) LYNDSAY (test code = LYNDSAY) Service Plumber ID - [auto]Service Plumber ID - tech Lab Interpretation (test code = 27141-0) [facility] Reflex [facility] Culture 2023-03-30 08:43:51* Test Item Value Reference Range Interpretation Comme nts Color, UA (test code = 5778-6) Yellow Clarity, UA (test code = 5767-9) Clear Specific [place], UA (test code = 5811-5) 1.033 1.001-1.035 pH, UA (test code = 5803-2) 6.0 5.0-8.0 Protein, UA (test code = 55777-2) 30 mg/dL Negative A Glucose, UA (test code = 365) Negative Negative Ketones, UA (test code = 2514-8) Negative Negative Bilirubin, UA (test code = 32190-5) Negative Negative Blood, UA (test code = 67455-2) Small Negative A Nitrite, UA (test code = 5802-4) Negative Negative Leukocytes, UA (test code = 5799-2) Negative Negative Urobilinogen, UA (test code = 77772-1) 0.2 0.2-1.0 RBC, UA (test code = 28455-8) 51 See_Comment [Automated message] The system which [...] Occasional Squam Epithel, UA (test code = 97837-7) See_Comment [Automated message] The system which generated this result transmitted reference range: /HPF. The reference range was not used to interpret this result as normal/abnormal. Specimen Source (test code = 2795) LYNDSAY (test code = LYNDSAY) Service Plumber ID - [auto]Service Plumber ID - tech Lab Interpretation (test code = 58562-1) [facility] Reflex to Culture 2023-03-30 08:43:51* Test Item Value Reference Range Interpretation Comme nts Color, UA (test code = 5778-6) Yellow Clarity, UA (test code = 5767-9) Clear Specific [place], UA (test code = 5811-5) 1.033 1.001-1.035 pH, UA (test code = 5803-2) 6.0 5.0-8.0 Protein, UA (test code = 95617-2) 30 mg/dL Negative A Glucose, UA (test code = 365) Negative Negative Ketones, UA (test code = 2514-8) Negative Negative Bilirubin, UA (test code = 04011-3) Negative Negative Blood, UA (test code = 80264-2) Small Negative A Nitrite, UA (test code = 5802-4) Negative Negative Leukocytes, UA (test code = 5799-2) Negative Negative Urobilinogen, UA (test code = 03554-9) 0.2 0.2-1.0 RBC, UA (test code = 42527-4) 51 See_Comment [Automated message] The system which [...] Occasional Squam Epithel, UA (test code = 71602-6) See_Comment [Automated message] The system which generated this result transmitted reference range: /HPF. The reference range was not used to interpret this result as normal/abnormal. Specimen Source (test code = 2795) LYNDSAY (test code = LYNDSAY) Service Plumber ID - [auto]Service Plumber ID - tech Lab Interpretation (test code = 84261-1) [facility] Reflex to Culture 2023-03-30 08:43:51* Test Item Value Reference Range Interpretation Comme nts Color, UA (test code = 5778-6) Yellow Clarity, UA (test code = 5767-9) Clear Specific [place], UA (test code = 5811-5) 1.033 1.001-1.035 pH, UA (test code = 5803-2) 6.0 5.0-8.0 Protein, UA (test code = 81138-0) 30 mg/dL Negative A Glucose, UA (test code = 365) Negative Negative Ketones, UA (test code = 2514-8) Negative Negative Bilirubin, UA (test code = 73767-4) Negative Negative Blood, UA (test code = 47177-8) Small Negative A Nitrite, UA (test code = 5802-4) Negative Negative Leukocytes, UA (test code = 5799-2) Negative Negative Urobilinogen, UA (test code = 82821-3) 0.2 0.2-1.0 RBC, UA (test code = 92239-3) 51 See_Comment [Automated message] The system which [...] Occasional Squam Epithel, UA (test code = 11814-0) See_Comment [Automated message] The system which generated this result transmitted reference range: /HPF. The reference range was not used to interpret this result as normal/abnormal. Specimen Source (test code = 2795) LYNDSAY (test code = LYNDSAY) Service Plumber ID - [auto]Service Plumber ID - tech Lab Interpretation (test code = 63655-7) [facility] Reflex to Culture 2023-03-30 08:43:51* Test Item Value Reference Range Interpretation Comme nts Color, UA (test code = 5778-6) Yellow Clarity, UA (test code = 5767-9) Clear Specific [place], UA (test code = 5811-5) 1.033 1.001-1.035 pH, UA (test code = 5803-2) 6.0 5.0-8.0 Protein, UA (test code = 76859-0) 30 mg/dL Negative A Glucose, UA (test code = 365) Negative Negative Ketones, UA (test code = 2514-8) Negative Negative Bilirubin, UA (test code = 24343-7) Negative Negative Blood, UA (test code = 46894-1) Small Negative A Nitrite, UA (test code = 5802-4) Negative Negative Leukocytes, UA (test code = 5799-2) Negative Negative Urobilinogen, UA (test code = 35280-8) 0.2 0.2-1.0 RBC, UA (test code = 23553-2) 51 See_Comment [Automated message] The system which [...] Occasional Squam Epithel, UA (test code = 55615-2) See_Comment [Automated message] The system which generated this result transmitted reference range: /HPF. The reference range was not used to interpret this result as normal/abnormal. Specimen Source (test code = 2795) LYNDSAY (test code = LYNDSAY) Service Plumber ID - [auto]Service Plumber ID - tech Lab Interpretation (test code = 20167-8) [facility] Reflex to Culture 2023-03-30 08:43:51* Test Item Value Reference Range Interpretation Comme nts Color, UA (test code = 5778-6) Yellow Clarity, UA (test code = 5767-9) Clear Specific [place], UA (test code = 5811-5) 1.033 1.001-1.035 pH, UA (test code = 5803-2) 6.0 5.0-8.0 Protein, UA (test code = 60125-2) 30 mg/dL Negative A Glucose, UA (test code = 365) Negative Negative Ketones, UA (test code = 2514-8) Negative Negative Bilirubin, UA (test code = 16626-3) Negative Negative Blood, UA (test code = 73884-8) Small Negative A Nitrite, UA (test code = 5802-4) Negative Negative Leukocytes, UA (test code = 5799-2) Negative Negative Urobilinogen, UA (test code = 46533-3) 0.2 0.2-1.0 RBC, UA (test code = 90862-5) 51 See_Comment [Automated message] The system which [...] Occasional Squam Epithel, UA (test code = 84240-9) See_Comment [Automated message] The system which generated this result transmitted reference range: /HPF. The reference range was not used to interpret this result as normal/abnormal. Specimen Source (test code = 2795) LYNDSAY (test code = LYNDSAY) Service Plumber ID - [auto]Service Plumber ID - tech Lab Interpretation (test code = 76716-9) [facility] Reflex to Culture 2023-03-30 08:43:51* Test Item Value Reference Range Interpretation Comme nts Color, UA (test code = 5778-6) Yellow Clarity, UA (test code = 5767-9) Clear Specific [place], UA (test code = 5811-5) 1.033 1.001-1.035 pH, UA (test code = 5803-2) 6.0 5.0-8.0 Protein, UA (test code = 42207-0) 30 mg/dL Negative A Glucose, UA (test code = 365) Negative Negative Ketones, UA (test code = 2514-8) Negative Negative Bilirubin, UA (test code = 16848-4) Negative Negative Blood, UA (test code = 18745-7) Small Negative A Nitrite, UA (test code = 5802-4) Negative Negative Leukocytes, UA (test code = 5799-2) Negative Negative Urobilinogen, UA (test code = 70312-2) 0.2 0.2-1.0 RBC, UA (test code = 75782-1) 51 See_Comment [Automated message] The system which [...] Occasional Squam Epithel, UA (test code = 59080-0) See_Comment [Automated message] The system which generated this result transmitted reference range: /HPF. The reference range was not used to interpret this result as normal/abnormal. Specimen Source (test code = 2795) LYNDSAY (test code = LYNDSAY) Service Plumber ID - [auto]Service Plumber ID - tech Lab Interpretation (test code = 98363-3) [facility] Reflex [facility] Culture 2023-03-30 08:43:51* Test Item Value Reference Range Interpretation Comme nts Color, UA (test code = 5778-6) Yellow Clarity, UA (test code = 5767-9) Clear Specific [place], UA (test code = 5811-5) 1.033 1.001-1.035 pH, UA (test code = 5803-2) 6.0 5.0-8.0 Protein, UA (test code = 67952-9) 30 mg/dL Negative A Glucose, UA (test code = 365) Negative Negative Ketones, UA (test code = 2514-8) Negative Negative Bilirubin, UA (test code = 03792-2) Negative Negative Blood, UA (test code = 98022-9) Small Negative A Nitrite, UA (test code = 5802-4) Negative Negative Leukocytes, UA (test code = 5799-2) Negative Negative Urobilinogen, UA (test code = 91082-2) 0.2 0.2-1.0 RBC, UA (test code = 70732-8) 51 See_Comment [Automated message] The system which [...] Occasional Squam Epithel, UA (test code = 31418-7) See_Comment [Automated message] The system which generated this result transmitted reference range: /HPF. The reference range was not used to interpret this result as normal/abnormal. Specimen Source (test code = 2795) LYNDSAY (test code = LYNDSAY) Service Plumber ID - [auto]Service Plumber ID - tech Lab Interpretation (test code = 21214-4) [facility] Reflex to Culture 2023-03-30 08:43:51* Test Item Value Reference Range Interpretation Comme nts Color, UA (test code = 5778-6) Yellow Clarity, UA (test code = 5767-9) Clear Specific [place], UA (test code = 5811-5) 1.033 1.001-1.035 pH, UA (test code = 5803-2) 6.0 5.0-8.0 Protein, UA (test code = 20957-2) 30 mg/dL Negative A Glucose, UA (test code = 365) Negative Negative Ketones, UA (test code = 2514-8) Negative Negative Bilirubin, UA (test code = 14260-2) Negative Negative Blood, UA (test code = 47524-8) Small Negative A Nitrite, UA (test code = 5802-4) Negative Negative Leukocytes, UA (test code = 5799-2) Negative Negative Urobilinogen, UA (test code = 28457-5) 0.2 0.2-1.0 RBC, UA (test code = 15916-2) 51 See_Comment [Automated message] The system which [...] Occasional Squam Epithel, UA (test code = 97518-0) See_Comment [Automated message] The system which generated this result transmitted reference range: /HPF. The reference range was not used to interpret this result as normal/abnormal. Specimen Source (test code = 2795) LYNDSAY (test code = LYNDSAY) Service Plumber ID - [auto]Service Plumber ID - tech Lab Interpretation (test code = 32735-2) [facility] Reflex to Culture 2023-03-30 08:43:51* Test Item Value Reference Range Interpretation Comme nts Color, UA (test code = 5778-6) Yellow Clarity, UA (test code = 5767-9) Clear Specific [place], UA (test code = 5811-5) 1.033 1.001-1.035 pH, UA (test code = 5803-2) 6.0 5.0-8.0 Protein, UA (test code = 16967-1) 30 mg/dL Negative A Glucose, UA (test code = 365) Negative Negative Ketones, UA (test code = 2514-8) Negative Negative Bilirubin, UA (test code = 80795-6) Negative Negative Blood, UA (test code = 14193-6) Small Negative A Nitrite, UA (test code = 5802-4) Negative Negative Leukocytes, UA (test code = 5799-2) Negative Negative Urobilinogen, UA (test code = 04222-2) 0.2 0.2-1.0 RBC, UA (test code = 30630-2) 51 See_Comment [Automated message] The system which [...] Occasional Squam Epithel, UA (test code = 87101-1) See_Comment [Automated message] The system which generated this result transmitted reference range: /HPF. The reference range was not used to interpret this result as normal/abnormal. Specimen Source (test code = 2795) LYNDSAY (test code = LYNDSAY) Service Plumber ID - [auto]Service Plumber ID - tech Lab Interpretation (test code = 66412-4) [facility] Reflex to Culture 2023-03-30 08:43:51* Test Item Value Reference Range Interpretation Comme nts Color, UA (test code = 5778-6) Yellow Clarity, UA (test code = 5767-9) Clear Specific [place], UA (test code = 5811-5) 1.033 1.001-1.035 pH, UA (test code = 5803-2) 6.0 5.0-8.0 Protein, UA (test code = 28816-2) 30 mg/dL Negative A Glucose, UA (test code = 365) Negative Negative Ketones, UA (test code = 2514-8) Negative Negative Bilirubin, UA (test code = 35303-8) Negative Negative Blood, UA (test code = 76604-9) Small Negative A Nitrite, UA (test code = 5802-4) Negative Negative Leukocytes, UA (test code = 5799-2) Negative Negative Urobilinogen, UA (test code = 16462-3) 0.2 0.2-1.0 RBC, UA (test code = 55142-0) 51 See_Comment [Automated message] The system which [...] Occasional Squam Epithel, UA (test code = 61502-5) See_Comment [Automated message] The system which generated this result transmitted reference range: /HPF. The reference range was not used to interpret this result as normal/abnormal. Specimen Source (test code = 2795) LYNDSAY (test code = LYNDSAY) Service Plumber ID - [auto]Service Plumber ID - tech Lab Interpretation (test code = 97079-1) [facility] Culture 2023-03-30 08:43:51* Test Item Value Reference Range Interpretation Comme nts Color, UA (test code = 5778-6) Yellow Clarity, UA (test code = 5767-9) Clear Specific [place], UA (test code = 5811-5) 1.033 1.001-1.035 pH, UA (test code = 5803-2) 6.0 5.0-8.0 Protein, UA (test code = 70473-1) 30 mg/dL Negative A Glucose, UA (test code = 365) Negative Negative Ketones, UA (test code = 2514-8) Negative Negative Bilirubin, UA (test code = 29662-9) Negative Negative Blood, UA (test code = 61382-6) Small Negative A Nitrite, UA (test code = 5802-4) Negative Negative Leukocytes, UA (test code = 5799-2) Negative Negative Urobilinogen, UA (test code = 50905-2) 0.2 0.2-1.0 RBC, UA (test code = 62570-0) 51 See_Comment [Automated message] The system which [...] Occasional Squam Epithel, UA (test code = 48028-1) See_Comment [Automated message] The system which generated this result transmitted reference range: /HPF. The reference range was not used to interpret this result as normal/abnormal. Specimen Source (test code = 2795) LYNDSAY (test code = LYNDSAY) Service Plumber ID - [auto]Service Plumber ID - tech Lab Interpretation (test code = 84595-9) [facility] 2023-03-30 08:43:51* Test Item Value Reference Range Interpretation Comme nts Color, UA (test code = 5778-6) Yellow Clarity, UA (test code = 5767-9) Clear Specific [place], UA (test code = 5811-5) 1.033 1.001-1.035 pH, UA (test code = 5803-2) 6.0 5.0-8.0 Protein, UA (test code = 21502-0) 30 mg/dL Negative A Glucose, UA (test code = 365) Negative Negative Ketones, UA (test code = 2514-8) Negative Negative Bilirubin, UA (test code = 38569-5) Negative Negative Blood, UA (test code = 98584-9) Small Negative A Nitrite, UA (test code = 5802-4) Negative Negative Leukocytes, UA (test code = 5799-2) Negative Negative Urobilinogen, UA (test code = 38571-5) 0.2 0.2-1.0 RBC, UA (test code = 35107-6) 51 See_Comment [Automated message] The system which [...] Occasional Squam Epithel, UA (test code = 91246-5) See_Comment [Automated message] The system which generated this result transmitted reference range: /HPF. The reference range was not used to interpret this result as normal/abnormal. Specimen Source (test code = 2795) LYNDSAY (test code = LYNDSAY) Service Plumber ID - [auto]Service Plumber ID - tech Lab Interpretation (test code = 68013-2) [facility] Reflex [facility] Culture 2023-03-30 08:43:51* Test Item Value Reference Range Interpretation Comme nts Color, UA (test code = 5778-6) Yellow Clarity, UA (test code = 5767-9) Clear Specific [place], UA (test code = 5811-5) 1.033 1.001-1.035 pH, UA (test code = 5803-2) 6.0 5.0-8.0 Protein, UA (test code = 62861-5) 30 mg/dL Negative A Glucose, UA (test code = 365) Negative Negative Ketones, UA (test code = 2514-8) Negative Negative Bilirubin, UA (test code = 21982-0) Negative Negative Blood, UA (test code = 31411-5) Small Negative A Nitrite, UA (test code = 5802-4) Negative Negative Leukocytes, UA (test code = 5799-2) Negative Negative Urobilinogen, UA (test code = 96646-4) 0.2 0.2-1.0 RBC, UA (test code = 32471-5) 51 See_Comment [Automated message] The system which [...] Occasional Squam Epithel, UA (test code = 52333-4) See_Comment [Automated message] The system which generated this result transmitted reference range: /HPF. The reference range was not used to interpret this result as normal/abnormal. Specimen Source (test code = 2795) LYNDSAY (test code = LYNDSAY) Service Plumber ID - [auto]Service Plumber ID - tech Lab Interpretation (test code = 23983-2) [facility] Ref[facility] Culture 2023-03-30 08:43:51* Test Item Value Reference Range Interpretation Comme nts Color, UA (test code = 5778-6) Yellow Clarity, UA (test code = 5767-9) Clear Specific [place], UA (test code = 5811-5) 1.033 1.001-1.035 pH, UA (test code = 5803-2) 6.0 5.0-8.0 Protein, UA (test code = 60961-9) 30 mg/dL Negative A Glucose, UA (test code = 365) Negative Negative Ketones, UA (test code = 2514-8) Negative Negative Bilirubin, UA (test code = 16896-7) Negative Negative Blood, UA (test code = 16743-8) Small Negative A Nitrite, UA (test code = 5802-4) Negative Negative Leukocytes, UA (test code = 5799-2) Negative Negative Urobilinogen, UA (test code = 06476-1) 0.2 0.2-1.0 RBC, UA (test code = 72041-0) 51 See_Comment [Automated message] The system which [...] Occasional Squam Epithel, UA (test code = 27245-1) See_Comment [Automated message] The system which generated this result transmitted reference range: /HPF. The reference range was not used to interpret this result as normal/abnormal. Specimen Source (test code = 2795) LYNDSAY (test code = LYNDSAY) Service Plumber ID - [auto]Service Plumber ID - tech Lab Interpretation (test code = 59129-2) [facility] Reflex to Culture 2023-03-30 08:43:51* Test Item Value Reference Range Interpretation Comme nts Color, UA (test code = 5778-6) Yellow Clarity, UA (test code = 5767-9) Clear Specific [place], UA (test code = 5811-5) 1.033 1.001-1.035 pH, UA (test code = 5803-2) 6.0 5.0-8.0 Protein, UA (test code = 35846-6) 30 mg/dL Negative A Glucose, UA (test code = 365) Negative Negative Ketones, UA (test code = 2514-8) Negative Negative Bilirubin, UA (test code = 75634-1) Negative Negative Blood, UA (test code = 39051-4) Small Negative A Nitrite, UA (test code = 5802-4) Negative Negative Leukocytes, UA (test code = 5799-2) Negative Negative Urobilinogen, UA (test code = 89693-8) 0.2 0.2-1.0 RBC, UA (test code = 77709-8) 51 See_Comment [Automated message] The system which [...] Occasional Squam Epithel, UA (test code = 37570-9) See_Comment [Automated message] The system which generated this result transmitted reference range: /HPF. The reference range was not used to interpret this result as normal/abnormal. Specimen Source (test code = 2795) LYNDSAY (test code = LYNDSAY) Service Plumber ID - [auto]Service Plumber ID - tech Lab Interpretation (test code = 93558-3) [facility] OGNDESI2835-00-42 08:43:51 * Test Item Value Reference Range [...] < /HPF SOURCE(BEAKER) (test code = 2795) Service Plumber ID - [auto]Service Plumber ID - techCOMPREHENSIVE METABOLIC OANON1827-29-44 04:37:29* Test Item Value Reference Range Interpretation [...] GFR is not applicable for dialysis patients Service Plumber ID - MATT BPT/ILBI5374-38-28 04:30:17* Test Item Value Reference Range Interpretation Comme nts PROTIME (BEAKER) (test code = 759) 13.8 seconds 11.9-14.2 INR (BEAKER) (test code = 370) 1.13 See_Comment [Automated Thubrikar Aortic Valve] The system which generated this result transmitted [...] code = 413) 0 /100 WBC 0-0 GZU-[id number] 00:00:00Ordered by an unspecified provider.[facility]-KSDALXF8325-06-32 00:00:00Ordered by an unspecified provider. [facility]-VOWAFKT7109-54-73 00:00:00Ordered by an unspecified provider.[facility]UM2023-05-25 17:14:06* Test Item Value Reference Range Interpretation Comme nts MAGNESIUM (test code = 9141076807) 1.9 mg/dL 1.7-2.4 Lab Interpretation (test cod e = 82455-6) [facility] (70786)2022-12-11 15:16:25* Test Item Value Reference Range Interpretation Comme nts NA (test code = 7557579979) 139 mmol/L 135-145 K (test code = 9757230150) 3.5 mmol/L 3.5-5.0 CL (test code = 7099035234) 107 mmol/L 98-108 CO2 TOTAL (test code = 1986398241) 24 mmol/L 23-31 AGAP (test code = 1360030879) 8 2-16 BUN (test code = 5366846499) 9 mg/dL 7-23 GLUCOSE (test code = 0065079755) 129 mg/dL 70-110 H CREATININE (test code = 8375852294) 0.68 mg/dL 0.50-1.04 TOTAL BILI (test code = 8879695460) 0.5 mg/dL 0.1-1.1 CALCIUM (test code = 3296915166) 8.9 mg/dL 8.6-10.6 T PROTEIN (test code = 1744130154) 6.3 g/dL 6.3-8.2 ALBUMIN (test code = 1692623311) 3.8 g/dL 3.5-5.0 ALK PHOS (test code = 2328017114) 87 U/L 34-122 ALTv (test code = 1742-6) 24 U/L 5-35 AST(SGOT) (test code = 5581324224) 21 U/L 13-40 eGFR (test code = 7741444521) 91.6 mL/min/1.73m2 LYNDSAY (test code = LYNDSAY) [...] imaging tests). Lab Interpretation (test code = 27835-6) [facility]normal [facility] CenterTROPONIN [id number] 15:10:45* Test Item Value Reference Range Interpretation Comme nts TROPONIN I (test code = 7037343900) 0.015 ng/mL <=0.034 LYNDSAY (test code = [...] of biotin. Lab Interpretation (test code = 22804-3) Normal [facility] CenterN[facility]MINAL OGD-[id number] 15:07:48* Test Item Value Reference Range Interpretation Comme nts NT-proBNP (test code = 0843572609) 1460 pg/mL <=125 H LYNDSAY (test code = LYNDSAY) Biotin has been reported to cause a negative bias, interpret results relative to patient's use of biotin. Lab Interpretation (test code = 07809-2) Abnormal [facility] CenterD-NLGHV2961-13-29 14:45:24* Test Item Value Reference Range Interpretation Comments D-DIMER (test code = 6434504098) 0.99 See_Comment H [Automated message] The system [...] a diagnosis. Lab Interpretation (test code = 70942-8) Abnormal [facility] WITH [id number] 14:14:48* Test Item Value Reference Range Interpretation Comme nts WBC (test code = 6690-2) 7.86 See_Comment [Automated myBestHelpera B[employer] In [employer] Box JV] The system which generated this result transmitted reference range: 4.30 - 11.10 10*3/?L. The reference range was not used to interpret this result as normal/abnormal. RBC (test code = 789-8) 5.13 See_Comment [Automated myBestHelpera [employer] JV] The system which generated this result transmitted [...] g/dL 31.6-35.1 L RDW-SD (test code = 13284-1) 47.8 fL 39.0-49.9 RDW-CV (test code = 788-0) 16.9 % 12.0-15.5 H PLT (test code = 777-3) 507 See_Comment H [Automated myBestHelpera ge] The system which generated this result transmitted reference range: 166 - 358 10*3/?L. The reference range was not used to interpret this result as normal/abnormal. MPV (test code = 87686-3) 8.2 fL 9.5-12.9 L NRBC/100 WBC (test code = 9200856625) 0.0 See_Comment [Automated me ssage] The system which generated this result transmitted reference range: 0.0 - 10.0 /100 WBCs. The reference range was not used to interpret this result as normal/abnormal. NRBC x10^3 (test code = 4696638203) See_Comment [Automated messa ge] The system which generated this result transmitted reference range: 10*3/?L. The reference range was not used to interpret this result as normal/abnormal. GRAN MAT (NEUT) % (test code = 770-8) 64.5 % IMM GRAN % (test code = 6482119111) 0.30 % LYMPH % (test code = 736-9) 25.6 % MONO % (test code = 5905-5) 7.5 % EOS % (test code = 713-8) 1.0 % BASO % (test code = 706-2) 1.1 % GRAN MAT x10^3(ANC) (test code = 0604252078) 5.07 10*3/uL 1.88-7.09 IMM GRAN x10^3 (test code = 6607460052) 0.00-0.06 LYMPH x10^3 (test code = 731-0) 2.01 10*3/uL 1.32-3.29 MONO x10^3 (test code = 742-7) 0.59 10*3/uL 0.33-0.92 EOS x10^3 (test code = 711-2) 0.08 10*3/uL 0.03-0.39 BASO x10^3 (test code = 704-7) 0.09 10*3/uL 0.01-0.07 H Lab Interpretation (test code = 08334-8) [facility]normal [facility] CenterRPR2023-01-[facility] 13:17:22* Test Item Value Reference Range Interpretation Comme nts RPR SCREEN (BEAKER) (test co de = 420) Nonreactive Nonreactive HEMOGLOBIN [id number] 10:39:49* Test Item Value Reference Range Interpretation Comme nts HEMOGLOBIN A1C ELECTROPHORESIS (BEAKER) (test code = 3811) 5.8 % See_Comment H [Automated me ssage] The system which generated this result transmitted reference range: <=5.6%. The reference range was not used to interpret this result as normal/abnormal. "The A1c is measured using a [facility]-certified method. HbA1c value equal to or greater than 6.5% as the diagnosis cutoff for diabetes. An HbA1c value of 5.7- 6.4% indicates increased risk for diabetes (prediabetes)."Service Plumber ID - ADM VITAMIN [id number] 22:48:27* Test Item Value Reference Range Interpretation Comme nts VITAMIN B12 (BEAKER) (test c ode = 774) 227 pg/mL 213-816 Service Plumber ID - MARCOTSH/FREE T4 IF [id number] 22:08:28* Test Item Value Reference Range Interpretation Comme nts THYROID STIMULATING HORMONE (BEAKER) (test code = 772) 3.309 uIU/mL 0.350-4.940 Service Plumber ID - JSHIV-1 ANTIGEN WITH HIV-1/2 OGXQRXAR5148-20-52 22:08:28* Test Item Value Reference Range Interpretation Comme nts HIV-1 ANTIGEN WITH HIV 1\\T\\2 ANTIBODY (2) (BEAKER) (test code = 2586) Nonreactive Nonreactive Service Plumber ID - JSC-REACTIVE [id number] 21:49:44* Test Item Value Reference Range Interpretation Comme nts C-REACTIVE PROTEIN (BEAKER) (test code = 676) 0.35 mg/dL 0.00-0.50 Service Plumber ID - JSCOMPREHENSIVE METABOLIC [id number] 21:49:43* Test Item Value Reference Range Interpretation [...] GFR is not applicable for dialysis patients Service Plumber ID - JSLIPID KUFVD5568-03-80 21:49:43* Test Item Value Reference Range Interpretation Comme nts TRIGLYCERIDES (BEAKER) (test code = 540) 161 mg/dL CHOLESTEROL (BEAKER) (test c ode = 631) 149 mg/dL HDL CHOLESTEROL (BEAKER) (te st code = 976) 43 mg/dL LDL CHOLESTEROL CALCULATED ( LINNEAAKER) (test code = 633) 74 mg/dL Triglyceride Reference Range: Low Risk <150 Borderline 150-199 High Risk 200-499 Very High Risk >=500Cholesterol Reference Range: Low Risk <200 Borderline 200-239 High Risk >240HDL Cholesterol Reference Range: Low Risk >=60 High Risk <40LDL Cholesterol Reference Range: Optimal <100 Near Optimal 100-129 Borderline 130-159 High 160-189 Very High >=190 Service Plumber ID - JSCBC W/PLT COUNT & AUTO [id number] 21:34:03* Test Item Value Reference Range Interpretation [...] Interpretation Comme nts Height (test code = 2242039500) in Weight (test code = 4050384262) lbs Systolic BP (test code = 0017219206) mmHg Diastolic BP (test code = 7128776943) mmHg Heart Rate (test code = 8553921449) bpm BSA (test code = 9398855145) 2.00 m2 Ao root diam (test code = 7175540973) 3.20 cm Aortic root (test code = 3431636552) 3.2 cm Ao root annulus (test code = 6187360032) 3.2 cm LVOT diameter (test code = 7783596650) 1.99 cm LVOT area (test code = 8306954443) 3.10 cm2 LVIDD (test code = 7700559012) 5.10 cm Left Ventricular End Diastolic Volume by Teichholz Method (test code = 8640873) 123.0 mL IVS (test code = 6861898936) 1.34 cm Interventricular Septum Diastolic Thickness by 2D (test code = 3686854) 1.34 cm LVPWD (test code = 6646722337) 1.34 cm PW (test code = 1443469383) 1.34 cm 0.6-1.1 EF(Teich) (test code = 0788205304) 41.80 % LVIDS (test code = 4116627064) 4.00 cm Left Ventricular End Systolic Volume by Teichholz Method (test code = 1730406) 71.5 mL FS (test code = 7601112217) 21 % EF - 2D (test code = 38672623) 41.80 % LA size (test code = 0608791560) 4.6 cm Pulmonic Regurgitant End Max Velocity (test code = 0135862205) 119.4 cm/s LAV(MOD-sp4) (test code = 7633650079) 95.00 mL E wave decelartion time (test code = 4258864918) 0.15 s MV stenosis pressure 1/2 time (test code = 3377437951) 45.6 ms MV Peak A Evette (test code = 4922930701) 123.8 cm/s MV Peak E Evette (test code = 2628992134) 109.7 cm/s E/A ratio (test code = 5066355362) ratio MR max PG (test code = 3187125022) 87.20 mm[Hg] MR max evette (test code = 4653460720) 466.90 cm/s Mr max evette (test code = 9839026236) 466.9 m/s MV Prop V (test code = 3964587102) 51.00 cm/s MV E/e' septal (test code = 0434164574) 8.1 cm/s Tapse (test code = 1398662200) 2.21 cm LVOT stroke volume (test code = 0585506299) 49.80 cm3 LVOT peak evette (test code = 7480167955) 89.1 cm/s LVOT mn grad (test code = 9627221203) mmHg AV LVOT peak gradient (test code = 9893110914) mmHg LVOT peak VTI (test code = 9584178147) 16.0 cm LV V1 mean (test code = 2609632492) 64.30 cm/s Aortic valve mean velocity (test code = 6084011465) 133.8 cm/s Ao peak evette (test code = 9939531313) 175.3 cm/s Ao VTI (test code = 8603483364) 32.2 cm AV area by cont VTI (test code = 9226330719) 1.6 cm2 AV area peak evette (test code = 7420427413) 1.6 cm2 Ao max PG (test code = 6073077484) 12.30 mm[Hg] AV peak gradient (test code = 6010621818) mmHg AV valve area (test code = 7667891252) 1.55 cm2 AV mean gradient (test code = 1615953443) mmHg AV regurgitation pressure 1/2 time (test code = 7173813635) 358.5 ms AI dec slope (test code = 6830230829) 364.20 cm/s2 AI max evette (test code = 1854461091) 445.80 cm/s AI max PG (test code = 4232155211) 79.50 mm[Hg] Radiology Study observation (narrative) (test code = 31343-6) LYNDSAY (test code = LYNDSAY) ?Left?Ventricle: Left [...] mL of Lumason ultrasound enhancing agent used. [facility] 10:43:32* Test Item Value Reference Range Interpretation Comme [facility] POCT GLU (test code = 9599080325) 148 mg/dL 70-110 H Lab Interpretation (test cod e = 54200-4) Abnormal [facility] CenterACTIVATED PARTIAL THRMPLAS [id number] 18:39:45* Test Item Value Reference Range Interpretation Comme [facility] APTT Patient (test code = 3173-2) See_Comment [Automated message] The system which generated this result transmitted reference range: 23 - 38 Seconds. The reference range was not used to interpret this result as normal/abnormal. LYNDSAY (test code = LYNDSAY) The RUST patient population mean normal value for aPTT is 30 seconds. Lab Interpretation (test code = 00691-1) Normal [facility] CenterPROTHROMBIN TIME / [id number] 18:37:42* Test Item Value Reference Range Interpretation [...] the indications. Lab Interpretation (test code = 41802-8) Normal [facility] CenterTROPONIN [id number] 18:32:01* Test Item Value Reference Range Interpretation Comments TROPONIN I (test code = 0419237745) 0.019 ng/mL See_Comment [Automated message] The system [...] of biotin. Lab Interpretation (test code = 77756-6) Normal [facility] CenterN-[facility]MINAL [id number] 18:29:01* Test Item Value Reference Range Interpretation Comme nts NT-proBNP (test code = 4075993432) 2770 pg/mL See_Comment H [Automated message] The system which generated this result transmitted reference range: <=125. The reference range was not used to interpret this result as normal/abnormal. LYNDSAY (test code = LYNDSAY) Biotin has been reported to cause a negative bias, interpret results relative to patient's use of biotin. Lab Interpretation (test code = 04010-2) [facility] CenterCOMP[facility] METABOLIC PANEL (48217)2022-07-31 18:21:42* Test Item Value Reference Range Interpretation Comme nts NA (test code = 6954860537) 136 mmol/L 135-145 K (test code = 9727923676) 4.6 mmol/L 3.5-5.0 CL (test code = 7859512505) 104 mmol/L 98-108 CO2 TOTAL (test code = 5252319854) 26 mmol/L 23-31 AGAP (test code = 6650589707) 2-16 BUN (test code = 3586504277) 9 mg/dL 7-23 GLUCOSE (test code = 4967867109) 97 mg/dL 70-110 CREATININE (test code = 2878206861) 0.64 mg/dL 0.50-1.04 TOTAL BILI (test code = 9335412393) 0.5 mg/dL 0.1-1.1 CALCIUM (test code = 5667195880) 8.2 mg/dL 8.6-10.6 L T PROTEIN (test code = 3936128377) 6.5 g/dL 6.3-8.2 ALBUMIN (test code = 2720771398) 3.9 g/dL 3.5-5.0 ALK PHOS (test code = 4803274309) 93 U/L 34-122 ALTv (test code = 1742-6) 18 U/L 5-35 AST(SGOT) (test code = 3084665006) 19 U/L 13-40 eGFR (test code = 4619216505) mL/min/1.73m2 LYNDSAY (test code = LYNDSAY) Association [...] imaging tests). Lab Interpretation (test code = 00891-1) [facility]normal [facility] CenterLIPASE2023-01-12 18:21:01* Test Item Value Reference Range Interpretation Comme nts LIPASE (test code = 8993340885) 54 U/L 0-220 Lab Interpretation (test cod e = 44503-5) Normal [facility] WITH [id number] 18:07:00* Test Item Value Reference Range Interpretation Comme nts WBC (test code = 6690-2) See_Comment [Clothia] The system which generated this result transmitted reference range: 4.30 - 11.10 10*3/?L. The reference range was not used to interpret this result as normal/abnormal. RBC (test code = 789-8) See_Comment [[place]ia] The system which generated this result transmitted [...] g/dL 31.6-35.1 L RDW-SD (test code = 11425-1) 53.1 fL 39.0-49.9 H RDW-CV (test code = 788-0) 17.0 % 12.0-15.5 H PLT (test code = 777-3) See_Comment H [Automated messa ge] The system which generated this result transmitted reference range: 166 - 358 10*3/?L. The reference range was not used to interpret this result as normal/abnormal. MPV (test code = 52006-8) 8.2 fL 9.5-12.9 L NRBC/100 WBC (test code = 0130555281) See_Comment [Automated me ssage] The system which generated this result transmitted reference range: 0.0 - 10.0 /100 WBCs. The reference range was not used to interpret this result as normal/abnormal. NRBC x10^3 (test code = 5983581219) See_Comment [Automated messa ge] The system which generated this result transmitted reference range: 10*3/?L. The reference range was not used to interpret this result as normal/abnormal. GRAN MAT (NEUT) % (test code = 770-8) 64.0 % IMM GRAN % (test code = 5745463865) 0.40 % LYMPH % (test code = 736-9) 27.3 % MONO % (test code = 5905-5) 6.5 % EOS % (test code = 713-8) 1.1 % BASO % (test code = 706-2) 0.7 % GRAN MAT x10^3(ANC) (test code = 3641236818) 5.46 10*3/uL 1.88-7.09 IMM GRAN x10^3 (test code = 1215624654) 0.03 10*3/uL 0.00-0.06 LYMPH x10^3 (test code = 731-0) 2.32 10*3/uL 1.32-3.29 MONO x10^3 (test code = 742-7) 0.55 10*3/uL 0.33-0.92 EOS x10^3 (test code = 711-2) 0.09 10*3/uL 0.03-0.39 BASO x10^3 (test code = 704-7) 0.06 10*3/uL 0.01-0.07 Lab Interpretation (test code = 96495-5) Abnormal [facility] METABOLIC PANEL (NA, K, CL, CO2, GLUCOSE, BUN, CREATININE, CA)2022-05-08 06:37:01* Test Item Value Reference Range Interpretation Comme nts NA (test code = 4271914241) 137 mmol/L 135-145 K (test code = 2976255497) 3.8 mmol/L 3.5-5 CL (test code = 7002698225) 103 mmol/L 98-108 CO2 TOTAL (test code = 9929253051) 24 mmol/L 23-31 AGAP (test code = 6767577111) 2-16 BUN (test code = 0926042754) 13 mg/dL 7-23 GLUCOSE (test code = 9214412611) 90 mg/dL 70-110 CREATININE (test code = 6333464320) 0.69 mg/dL 0.5-1.04 CALCIUM (test code = 6528810398) 8.5 mg/dL 8.6-10.6 L eGFR (test code = 4889826440) mL/min/1.73m2 LYNDSAY (test code = LYNDSAY) Association [...] imaging tests). Lab Interpretation (test code = 94609-1) [facility]normal [facility] CenterMAGNESIUM2022-10-20 06:37:01* Test Item Value Reference Range Interpretation Comme nts MAGNESIUM (test code = 4382394592) 2.1 mg/dL 1.7-2.4 Lab Interpretation (test cod e = 69390-8) Normal [facility] CenterPHOSPHORUS2022-10-20 06:37:01* Test Item Value Reference Range Interpretation Comme nts PHOSPHORUS (test code = 2651870423) 4.7 mg/dL 2.5-5 Lab Interpretation (test cod e = 83742-3) [facility] CenterCB WITH [id number] 06:11:54* Test Item Value Reference Range Interpretation Comme nts WBC (test code = 6690-2) See_Comment [Automated myBestHelpera ge] The system which generated this result transmitted reference range: 4.30 - 11.10 10*3/?L. The reference range was not used to interpret this result as normal/abnormal. RBC (test code = 789-8) See_Comment [Automated myBestHelpera ge] The system which generated this result [...] 32.4 g/dL 31.6-35.1 RDW-SD (test code = 39389-4) 51.0 fL 39-49.9 H RDW-CV (test code = 788-0) 16.5 % 12-15.5 H PLT (test code = 777-3) See_Comment H [Automated messa ge] The system which generated this result transmitted reference range: 166 - 358 10*3/?L. The reference range was not used to interpret this result as normal/abnormal. MPV (test code = 41271-5) 8.3 fL 9.5-12.9 L NRBC/100 WBC (test code = 4516271387) See_Comment [Automated me ssage] The system which generated this result transmitted reference range: 0.0 - 10.0 /100 WBCs. The reference range was not used to interpret this result as normal/abnormal. NRBC x10^3 (test code = 3094289938) See_Comment [Automated messa ge] The system which generated this result transmitted reference range: 10*3/?L. The reference range was not used to interpret this result as normal/abnormal. GRAN MAT (NEUT) % (test code = 770-8) 64.5 % IMM GRAN % (test code = 2361948500) 0.50 % LYMPH % (test code = 736-9) 27.1 % MONO % (test code = 5905-5) 6.6 % EOS % (test code = 713-8) 0.6 % BASO % (test code = 706-2) 0.7 % GRAN MAT x10^3(ANC) (test code = 6997952653) 5.28 10*3/uL 1.88-7.09 IMM GRAN x10^3 (test code = 6776108881) 0.04 10*3/uL 0-0.06 LYMPH x10^3 (test code = 731-0) 2.22 10*3/uL 1.32-3.29 MONO x10^3 (test code = 742-7) 0.54 10*3/uL 0.33-0.92 EOS x10^3 (test code = 711-2) 0.05 10*3/uL 0.03-0.39 BASO x10^3 (test code = 704-7) 0.06 10*3/uL 0.01-0.07 Lab Interpretation (test code = 13818-9) Abnormal [facility] GLUCOSE (AUTOMATED)2022-05-07 01:18:10* Test Item Value Reference Range Interpretation Comme nts POCT GLU (test code = 3899179313) 120 mg/dL 70-110 H Lab Interpretation (test cod e = 44810-3) [facility]normal [facility] - ONCE [id number] 05:46:35* Test Item Value Reference Range Interpretation Comme nts ABO & RH (test code = 20) O POSITIVE Performed at [facility] Laboratory Services - [facility] Blood [address] Free: [phone] No. [id number] IAT (test code = 1185) Negative Performed at [facility] Laboratory Services [facility] Blood [address] Free: [phone] No. [id number] [facility] CenterBAS[facility]OLIC PANEL (NA, K, CL, CO2, GLUCOSE, BUN, CREATININE, CA)2022-05-05 08:22:57* Test Item Value Reference Range Interpretation Comme nts NA (test code = 7661836796) 136 mmol/L 135-145 K (test code = 4204227504) 4.9 mmol/L 3.5-5 CL (test code = 0495622872) 108 mmol/L 98-108 CO2 TOTAL (test code = 5781842623) 22 mmol/L 23-31 L AGAP (test code = 4673678131) 2-16 BUN (test code = 0643727253) 12 mg/dL 7-23 GLUCOSE (test code = 4964482707) 155 mg/dL 70-110 H CREATININE (test code = 4483049395) 0.63 mg/dL 0.5-1.04 CALCIUM (test code = 8722434117) 8.4 mg/dL 8.6-10.6 L eGFR (test code = 2827123678) mL/min/1.73m2 LYNDSAY (test code = LYNDSAY) Association [...] imaging tests). Lab Interpretation (test code = 40839-2) Abnormal [facility] CenterPROTHROMBIN TIME / [id number] 08:22:37* Test Item Value Reference Range Interpretation Comme [facility] PROTIME PATIENT (test code = 5964-2) See_Comment [Clothia] The system which generated this result transmitted reference range: 10.1 - 12.6 Seconds. The reference range was not used to interpret this result as normal/abnormal. INR (test code = 6301-6) Normal INR <1.1; Warfarin Therapeutic range 2.0 to 3.0 or 2.5 to 3.5, depending upon the indications. Lab Interpretation (test code = 85171-7) Normal [facility] CenteraPTT2022-10-17 08:22:37* Test Item Value Reference Range Interpretation Comme [facility] APTT Patient (test code = 3173-2) See_Comment [Clothia] The system which generated this result transmitted reference range: 26 - 36 Seconds. The reference range was not used to interpret this result as normal/abnormal. Lab Interpretation (test code = 62148-2) Normal [facility] CenterFIBRINOGEN2022-10-17 08:22:37* Test Item Value Reference Range Interpretation Comme nts Fibrinogen (test code = 9570025949) 294 mg/dL 167-453 Lab Interpretation (test cod e = 35414-4) Normal [facility] WITH [id number] 08:15:01* Test Item Value Reference Range Interpretation [...] g/dL 31.6-35.1 L RDW-SD (test code = 77643-5) 52.9 fL 39-49.9 H RDW-CV (test code = 788-0) 16.8 % 12-15.5 H PLT (test code = 777-3) See_Comment H [Automated messa ge] The system which generated this result transmitted reference range: 166 - 358 10*3/?L. The reference range was not used to interpret this result as normal/abnormal. MPV (test code = 13216-7) 8.3 fL 9.5-12.9 L NRBC/100 WBC (test code = 2476644026) See_Comment [Automated me ssage] The system which generated this result transmitted reference range: 0.0 - 10.0 /100 WBCs. The reference range was not used to interpret this result as normal/abnormal. NRBC x10^3 (test code = 0751582963) See_Comment [Automated messa ge] The system which generated this result transmitted reference range: 10*3/?L. The reference range was not used to interpret this result as normal/abnormal. GRAN MAT (NEUT) % (test code = 770-8) 86.4 % IMM GRAN % (test code = 1739146055) 0.40 % LYMPH % (test code = 736-9) 11.7 % MONO % (test code = 5905-5) 1.1 % EOS % (test code = 713-8) 0.0 % BASO % (test code = 706-2) 0.4 % GRAN MAT x10^3(ANC) (test code = 8011478442) 6.36 10*3/uL 1.88-7.09 IMM GRAN x10^3 (test code = 9076800591) 0.03 10*3/uL 0-0.06 LYMPH x10^3 (test code = 731-0) 0.86 10*3/uL 1.32-3.29 L MONO x10^3 (test code = 742-7) 0.08 10*3/uL 0.33-0.92 L EOS x10^3 (test code = 711-2) 0.03-0.39 L BASO x10^3 (test code = 704-7) 0.03 10*3/uL 0.01-0.07 Lab Interpretation (test code = 57062-0) Abnormal [facility] CenterVITAMIN D, [id number] 20:14:03* Test Item Value Reference Range Interpretation Comme nts VIT D 25OH (test code = 37222-2) 22 ng/mL 25-80 L LYNDSAY (test code = LYNDSAY) Deficiency: <20 ng/mLInsufficiency: 20-24 ng/mLOptimal: 25-80 ng/mL Lab Interpretation (test code = 33100-3) Abnormal [facility] CenterBASI METABOLIC PANEL (NA, K, CL, CO2, GLUCOSE, BUN, CREATININE, CA)2022-04-15 11:27:57* Test Item Value Reference Range Interpretation Comme nts NA (test code = 5442856508) 138 mmol/L 135-145 K (test code = 4420902509) 3.9 mmol/L 3.5-5 CL (test code = 9255871463) 106 mmol/L 98-108 CO2 TOTAL (test code = 4486624944) 23 mmol/L 23-31 AGAP (test code = 2900619592) 2-16 BUN (test code = 8191351324) 10 mg/dL 7-23 GLUCOSE (test code = 5039709631) 91 mg/dL 70-110 CREATININE (test code = 9177255511) 0.65 mg/dL 0.5-1.04 CALCIUM (test code = 3293761446) 8.1 mg/dL 8.6-10.6 L eGFR (test code = 4975508998) mL/min/1.73m2 LYNDSAY (test code = LYNDSAY) Association [...] imaging tests). Lab Interpretation (test code = 41485-2) Abnormal [facility] CenterSTROKE Protocol - Transthoracic echo (TTE) 2022-04-14 22:07:33* Test Item Value Reference Range Interpretation Comme nts Height (test code = 4845235041) in Weight (test code = 2580787181) lbs Systolic BP (test code = 8448638687) mmHg Diastolic BP (test code = 6310861067) mmHg Heart Rate (test code = 8080775575) bpm BSA (test code = 5381819303) 1.94 m2 TASV (test code = 5643077620) 15.5 cm/s LVIDD (test code = 3005004965) 6.00 cm Left Ventricular End Diastolic Volume by Teichholz Method (test code = 2672777) 183.0 mL IVS (test code = 6435404425) 1.09 cm Interventricular Septum Diastolic Thickness by 2D (test code = 9637851) 1.09 cm LVPWD (test code = 5757746229) 0.94 cm PW (test code = 3362022752) 0.94 cm 0.6-1.1 EF(Teich) (test code = 5983731474) 40.30 % LVIDS (test code = 2398734566) 4.80 cm Left Ventricular End Systolic Volume by Teichholz Method (test code = 6252202) 109.2 mL FS (test code = 4106811657) 20 % EF - 2D (test code = 36970869) 40.30 % LVOT diameter (test code = 9713020816) 2.05 cm LVOT area (test code = 6862655710) 3.30 cm2 Ao root diam (test code = 6225619074) 3.10 cm Aortic root (test code = 9925619040) 3.1 cm Ao root annulus (test code = 7890416826) 3.1 cm LA size (test code = 5974399576) 4.2 cm LAV(MOD-sp4) (test code = 5757196835) 64.90 mL MV Peak A Evette (test code = 1909389656) 115.7 cm/s E wave decelartion time (test code = 9191798650) 0.15 s MV Peak E Evette (test code = 2775593332) 106.2 cm/s E/A ratio (test code = 0205275850) ratio LVOT stroke volume (test code = 0175640719) 48.30 cm3 LVOT peak evette (test code = 6482794571) 78.4 cm/s LVOT mn grad (test code = 6881622829) mmHg AV LVOT peak gradient (test code = 1315302292) mmHg LVOT peak VTI (test code = 6173057204) 14.7 cm LV V1 mean (test code = 0529169743) 51.40 cm/s Ao peak evette (test code = 4613211042) 154.7 cm/s AV area peak evette (test code = 5685861051) 1.7 cm2 Ao max PG (test code = 4731928634) 9.60 mm[Hg] AV peak gradient (test code = 0269623048) mmHg AV regurgitation pressure 1/2 time (test code = 2550997838) 257.3 ms AI dec slope (test code = 0337974485) 498.10 cm/s2 AI max evette (test code = 4051483057) 437.60 cm/s AI max PG (test code = 3659900242) 77.80 mm[Hg] Tapse (test code = 6323236928) 2.19 cm LA Volume Index (BP) (test code = 2832787972) 32.0 mL/m2 LA volume (BP) (test code = 2479018239) 62.1 mL LAV(MOD-sp2) (test code = 9607481773) 52.70 mL A4C EF (test code = 6968254766) 44.80 % EF(sp4-el) (test code = 5614401303) 45.20 % SV(MOD-sp4) (test code = 1077673817) 71.20 mL SV(sp4-el) (test code = 8692987513) 73.90 mL LV Diastolic Volume (BP) (test code = 1349939983) 146.3 mL A2C EF (test code = 9049174816) 52.00 % EF(MOD-bp) (test code = 8833057512) 46.70 % EF(sp2-el) (test code = 5785331908) 52.40 % LV Systolic Volume (BP) (test code = 5070430166) 77.9 mL SV(MOD-bp) (test code = 0444567197) 68.40 mL SV(MOD-sp2) (test code = 9608360716) 69.20 mL EF (test code = 4793250957) Left Ventricular Stroke Volume by 2-D Biplane-MOD (test code = 3108370) 68.4 mL Radiology Study observation (narrative) (test code = 61189-3) LYNDSAY (test code = LYNDSAY) ?Left?Ventricle: Left [...] agent used and [facility] contrast [facility]. [facility] 16:48:36* Test Item Value Reference Range Interpretation Comme nts KEPPRA (test code = 0602054206) 12-46 L LYNDSAY (test code = LYNDSAY) Therapeutic range: 12-46 ?g/mL ? ?Toxic: Not well established.Test developed and characteristics determined by [facility]. Lab Interpretation (test code = 44090-2) Abnormal [facility] Metabolic Panel (Na, K, Cl, CO2, Glucose, BUN, Creatinine, Ca)2022-04-14 10:50:11* Test Item Value Reference Range Interpretation Comme nts NA (test code = 4701255957) 136 mmol/L 135-145 K (test code = 6253045332) 3.8 mmol/L 3.5-5 CL (test code = 8028960668) 105 mmol/L 98-108 CO2 TOTAL (test code = 9415633357) 25 mmol/L 23-31 AGAP (test code = 9984792027) 2-16 BUN (test code = 1394470251) 9 mg/dL 7-23 GLUCOSE (test code = 1867193462) 101 mg/dL 70-110 CREATININE (test code = 9281809157) 0.66 mg/dL 0.5-1.04 CALCIUM (test code = 1000486313) 8.1 mg/dL 8.6-10.6 L eGFR (test code = 0946027364) mL/min/1.73m2 LYNDSAY (test code = LYNDSAY) Association [...] imaging tests). Lab Interpretation (test code = 72778-0) Abnormal [facility] CenterMagensium, [id number] 10:50:11* Test Item Value Reference Range Interpretation Comme nts MAGNESIUM (test code = 2515765825) 1.9 mg/dL 1.7-2.4 Lab Interpretation (test cod e = 75871-4) Normal [facility] CenterThyroid Stimulating Wzdoxgg0435-31-32 22:21:44 * Test Item Value Reference Range Interpretation Comme nts TSH (test code = 6387914463) See_Comment Biotin has been reported to cause a negative bias, interpret results relative to patient's use of biotin. [Automated message] The system which generated this result transmitted reference range: 0.45 - 4.70 mIU/L. The reference range was not used to interpret this result as normal/abnormal. Lab Interpretation (test code = 64987-8) Normal [facility] CenterGLYCOSYLATED HEMOGLOBIN (A1C)2022-04-13 21:53:43* Test Item Value Reference Range Interpretation Comme nts HGB A1C (test code = 4548-4) 5.8 % 4-5.7 H LYNDSAY (test code = LYNDSAY) Reference RangesNormal: <5.7%Prediabetes: 5.7 - 6.4%Diabetes: > 6.5% Lab Interpretation (test code = 51488-9) Abnormal [facility] CenterFASTING LIPID PANEL (34649)(TOTAL CHOLESTEROL, TRIGLYCERIDES, HDL)2022-04-13 21:34:53* Test Item Value Reference Range Interpretation Comme nts CHOL (test code = 6344515367) 201 mg/dL 120-200 H HDL (test code = 9340995277) 56 mg/dL See_Comment [Automated eCommHub ge] The system which generated this result transmitted reference range: >=50. The reference range was not used to interpret this result as normal/abnormal. HDLC RATIO (test code = 6210601962) See_Comment [Automated Thubrikar Aortic Valve] The system which generated this result transmitted reference range: <=4.5. The reference range was not used to interpret this result as normal/abnormal. TRIG (test code = 0171979451) 355 mg/dL 30-170 H LDL CHOL (test code = 63023-7) 74 mg/dL See_Comment [Automated Thubrikar Aortic Valve] The system which generated this result transmitted reference range: <=160. The reference range was not used to interpret this result as normal/abnormal. VLDL (test code = 6475293389) 71 mg/dL 5-60 H Lab Interpretation (test code = 45266-0) Abnormal [facility] CenterTroponin I - Code Xrpwfq5134-97-44 18:46:27* Test Item Value Reference Range Interpretation Comments TROPONIN I (test code = 5069539184) 0.013 ng/mL See_Comment [Automated message] The system [...] of biotin. Lab Interpretation (test code = 03484-4) Normal [facility] CenterBasi Metabolic Panel (NA, K, CL, CO2, Glucose, BUN, Creatinine, CA) - Code Kfmeee2865-15-61 18:35:07* Test Item Value Reference Range Interpretation Comme nts NA (test code = 3177289661) 136 mmol/L 135-145 K (test code = 5027514805) 4.3 mmol/L 3.5-5 CL (test code = 3760225846) 105 mmol/L 98-108 CO2 TOTAL (test code = 1300122361) 27 mmol/L 23-31 AGAP (test code = 7446554106) 2-16 BUN (test code = 4756712354) 8 mg/dL 7-23 GLUCOSE (test code = 3284850380) 130 mg/dL 70-110 H CREATININE (test code = 5849033664) 0.75 mg/dL 0.5-1.04 CALCIUM (test code = 8870110208) 8.5 mg/dL 8.6-10.6 L eGFR (test code = 3014757107) mL/min/1.73m2 LYNDSAY (test code = LYNDSAY) Association [...] imaging tests). Lab Interpretation (test code = 67016-7) Abnormal [facility] CenteraPTT - Code Byyyyo5529-74-40 18:32:46* Test Item Value Reference Range Interpretation Comme john APTT Patient (test code = 3173-2) See_Comment [Automated message] The system which generated this result transmitted reference range: 23 - 38 Seconds. The reference range was not used to interpret this result as normal/abnormal. LYNDSAY (test code = LYNDSAY) The [facility] patient population mean normal value for aPTT is 30 seconds. Lab Interpretation (test code = 08410-6) Normal [facility] CenterProthrombin Time / INR - Code Ktzywp1325-66-89 18:30:45* Test Item Value Reference Range Interpretation [...] the indications. Lab Interpretation (test code = 89750-5) Normal [facility] CenterCBC without Diff - Code [id number] 18:23:07* Test Item Value Reference Range Interpretation [...] result as normal/abnormal. MPV (test code = 50827-8) 8.1 fL 9.5-12.9 L RDW-CV (test code = 788-0) 16.1 % 12-15.5 H RDW-SD (test code = 95816-4) 49.2 fL 39-49.9 NRBC x10^3 (test code = 5993407297) See_Comment [Automated myBestHelpera Biz In A Box JV] The system which generated this result transmitted reference range: 10*3/?L. The reference range was not used to interpret this result as normal/abnormal. NRBC/100 WBC (test code = 4933650403) See_Comment [Automated Thubrikar Aortic Valve] The system which generated this result transmitted reference range: 0.0 - 10.0 /100 WBCs. The reference range was not used to interpret this result as normal/abnormal. IPF % (test code = 5787620768) Lab Interpretation (test code = 08844-1) Abnormal [facility] CenterTROPONIN [id number] 21:06:40* Test Item Value Reference Range Interpretation Comments TROPONIN I (test code = 5503249174) 0.005 ng/mL See_Comment [Automated message] The system [...] of biotin. Lab Interpretation (test code = 65949-3) Normal [facility] CenterCOM. METABOLIC PANEL (31342)2021-11-23 20:55:42* Test Item Value Reference Range Interpretation Comme nts NA (test code = 4397565411) 137 mmol/L 135-145 K (test code = 4130247351) 4.3 mmol/L 3.5-5.0 CL (test code = 7062198017) 104 mmol/L 98-108 CO2 TOTAL (test code = 9711596888) 22 mmol/L 23-31 L AGAP (test code = 4654464212) 2-16 BUN (test code = 2783017529) 15 mg/dL 7-23 GLUCOSE (test code = 4606705646) 114 mg/dL 70-110 H CREATININE (test code = 0699632746) 0.68 mg/dL 0.50-1.04 TOTAL BILI (test code = 3015998926) 0.5 mg/dL 0.1-1.1 CALCIUM (test code = 0526524384) 9.1 mg/dL 8.6-10.6 T PROTEIN (test code = 2852693651) 7.3 g/dL 6.3-8.2 ALBUMIN (test code = 1140184527) 4.4 g/dL 3.5-5.0 ALK PHOS (test code = 3057375652) 243 U/L 34-122 H ALTv (test code = 1742-6) 24 U/L 5-35 AST(SGOT) (test code = 8717135255) 30 U/L 13-40 eGFR (test code = 8495811999) mL/min/1.73m2 LYNDSAY (test code = LYNDSAY) Association [...] imaging tests). Lab Interpretation (test code = 88305-0) Abnormal [facility] CenterLIPASE2022-05-07 20:55:22* Test Item Value Reference Range Interpretation Comme nts LIPASE (test code = 5055829193) 96 U/L 0-220 Lab Interpretation (test cod e = 18773-4) Normal [facility] CenterPOCT [id number] 20:46:00* Test Item Value Reference Range Interpretation Comme nts POCT PREG (test code = 1605) negative On board controls acceptable with C Line (test code = 3574) present POCT PREG LOT # (test code = 3575) [id number] POCT PREG TEST DATE ( test code = 3576) 04/18/2023 Lab Interpretation (test cod e = 64626-3) Normal [facility] CenterCBC WITH [id number] 20:40:38* Test Item Value Reference Range Interpretation Comme nts WBC (test code = 6690-2) See_Comment [Automated Thubrikar Aortic Valve] The system which generated this result transmitted reference range: 4.30 - 11.10 10*3/?L. The reference range was not used to interpret this result as normal/abnormal. RBC (test code = 789-8) See_Comment [Automated myBestHelpera Biz In A Box JV] The system which generated this result transmitted [...] 31.8 g/dL 31.6-35.1 RDW-SD (test code = 85861-3) 53.7 fL 39.0-49.9 H RDW-CV (test code = 788-0) 17.2 % 12.0-15.5 H PLT (test code = 777-3) See_Comment H [Automated messa ge] The system which generated this result transmitted reference range: 166 - 358 10*3/?L. The reference range was not used to interpret this result as normal/abnormal. MPV (test code = 65612-2) 8.5 fL 9.5-12.9 L NRBC/100 WBC (test code = 5698564233) See_Comment [Automated KDS ssage] The system which generated this result transmitted reference range: 0.0 - 10.0 /100 WBCs. The reference range was not used to interpret this result as normal/abnormal. NRBC x10^3 (test code = 3875917217) <0.01 See_Comment [Automated messa ge] The system which generated this result transmitted reference range: 10*3/?L. The reference range was not used to interpret this result as normal/abnormal. GRAN MAT (NEUT) % (test code = 770-8) 53.7 % IMM GRAN % (test code = 8468528460) 0.90 % LYMPH % (test code = 736-9) 32.6 % MONO % (test code = 5905-5) 10.1 % EOS % (test code = 713-8) 1.5 % BASO % (test code = 706-2) 1.2 % GRAN MAT x10^3(ANC) (test code = 2750474095) 4.98 10*3/uL 1.88-7.09 IMM GRAN x10^3 (test code = 4888139405) 0.08 10*3/uL 0.00-0.06 H LYMPH x10^3 (test code = 731-0) 3.02 10*3/uL 1.32-3.29 MONO x10^3 (test code = 742-7) 0.94 10*3/uL 0.33-0.92 H EOS x10^3 (test code = 711-2) 0.14 10*3/uL 0.03-0.39 BASO x10^3 (test code = 704-7) 0.11 10*3/uL 0.01-0.07 H Lab Interpretation (test code = 59644-2) [facility]normal [facility] CenterPOCT GLUCOSE (AUTOMATED)2021-11-23 20:17:33* Test Item Value Reference Range Interpretation Comme [facility] POCT GLU (test code = 0392497263) 111 mg/dL 70-110 H Notified Provide r Lab Interpretation (test code = 78637-4) Abnormal [facility] CenterPAP TEST, THINPREP, [id number] 00:00:00 * Test Item Value Reference Range Interpretation Comme [facility] SOURCE: (test code = 8001) Endocervical SLIDES: (test code = 8011) 1 LMP: (test code = 8021) 06/03/2021 SPECIMEN ADEQUACY: (test code = 83166) (NOTE) INTERPRETATION: (test code = 70827) ASCUS/EPITH. ABNORMALITY; SEE BELOW RAILROAD CONSTRUCTION DIRECTOR: (test code = 8101) CHANA Thacker(ASC)[facility] PATHOLOGIST INTERPRETATION BY: (test code = 8122) Nahid Russell M.D. LOCATION: (test code = 01437) (NOTE) CPT: (test code = 8140) (NOTE) PAP TEST, THINPREP, [id number] 00:00:00* Test Item Value Reference Range Interpretation Comme [facility] SOURCE: (test code = 8001) Endocervical SLIDES: (test code = 8011) 1 LMP: (test code = 8021) 06/03/2021 SPECIMEN ADEQUACY: (test code = 68659) (NOTE) INTERPRETATION: (test code = 65966) ASCUS/EPITH. ABNORMALITY; SEE BELOW RAILROAD CONSTRUCTION DIRECTOR: (test code = 8101) CHANA Thacker(ASC)[facility] PATHOLOGIST INTERPRETATION BY: (test code = 8122) Nahid Russell M.D. LOCATION: (test code = 13894) (NOTE) CPT: (test code = 8140) (NOTE) PAP TEST, THINPREP, [id number] 00:00:00* Test Item Value Reference Range Interpretation Comme nts SOURCE: (test code = 8001) Endocervical SLIDES: (test code = 8011) 1 LMP: (test code = 8021) 06/03/2021 SPECIMEN ADEQUACY: (test code = 29635) (NOTE) INTERPRETATION: (test code = 84339) ASCUS/EPITH. ABNORMALITY; SEE BELOW RAILROAD CONSTRUCTION DIRECTOR: (test code = 8101) CHANA Thacker(ASCP)[facility] PATHOLOGIST INTERPRETATION BY: (test code = 8122) Nahid Russell M.D. LOCATION: (test code = 09727) (NOTE) CPT: (test code = 8140) (NOTE) PAP TEST, THINPREP, [id number] 00:00:00* Test Item Value Reference Range Interpretation Comme nts SOURCE: (test code = 8001) Endocervical SLIDES: (test code = 8011) 1 LMP: (test code = 8021) 06/03/2021 SPECIMEN ADEQUACY: (test code = 45154) (NOTE) INTERPRETATION: (test code = 37439) ASCUS/EPITH. ABNORMALITY; SEE BELOW RAILROAD CONSTRUCTION DIRECTOR: (test code = 8101) CHANA Thacker(ASCP)[facility] PATHOLOGIST INTERPRETATION BY: (test code = 8122) Nahid Russell M.D. LOCATION: (test code = 43026) (NOTE) CPT: (test code = 8140) (NOTE) HPV HIGH RISK WITH GENOTYPE, [id number] 00:00:00* Test Item Value Reference Range Interpretation Comme [facility] HPV HIGH RISK INTERP (test c ode = 35374) POSITIVE HPV 16 (test code = 41812) POSITIVE HPV 18 (test code = 04254) NEGATIVE HPV, HR, OTHER GENOTYPES (te st code = 78503) POSITIVE HPV HIGH RISK WITH GENOTYPE, [id number] 00:00:00* Test Item Value Reference Range Interpretation Comme nts HPV HIGH RISK INTERP (test c ode = 76246) POSITIVE HPV 16 (test code = 36974) POSITIVE HPV 18 (test code = 46026) NEGATIVE HPV, HR, OTHER GENOTYPES (te st code = 08966) POSITIVE HPV HIGH RISK WITH GENOTYPE, [id number] 00:00:00* Test Item Value Reference Range Interpretation Comme nts HPV HIGH RISK INTERP (test c ode = 84078) POSITIVE HPV 16 (test code = 89082) POSITIVE HPV 18 (test code = 01299) NEGATIVE HPV, HR, OTHER GENOTYPES (te st code = 05134) POSITIVE HPV HIGH RISK WITH GENOTYPE, [id number] 00:00:00* Test Item Value Reference Range Interpretation Comme nts HPV HIGH RISK INTERP (test c ode = 22554) POSITIVE HPV 16 (test code = 90542) POSITIVE HPV 18 (test code = 20297) NEGATIVE HPV, HR, OTHER GENOTYPES (te st code = 51135) POSITIVE [id number] 03:22:48* Test Item Value Reference Range Interpretation Comme nts APPEARANCE (test code = 9732473703) Hazy Clear A COLOR (test code = 8294071367) Yellow Yellow PH (test code = 1972940085) 4.8-8.0 SP GRAVITY (test code = 7267556940) 1.003-1.030 GLU U QUAL (test code = 8852171249) Normal Normal BLOOD (test code = 5712431290) Negative Negative Interference fro m ascorbic acid may cause false negative results. KETONES (test code = 3240617075) 5 mg/dL Negative A PROTEIN (test code = 2887-8) Negative Negative UROBILIN (test code = 3578510614) 4.0 mg/dL Normal A BILIRUBIN (test code = 2676826287) Negative Negative NITRITE (test code = 9616441302) Negative Negative LEUK GRUPO (test code = 8238701623) Negative Negative RBC/HPF (test code = 5934927406) See_Comment [Automated myBestHelpera ge] The system which generated this result transmitted reference range: 0 - 3 HPF. The reference range was not used to interpret this result as normal/abnormal. WBC/HPF (test code = 3393036616) <1 See_Comment [Automated myBestHelpera ge] The system which generated this result transmitted reference range: 0 - 5 HPF. The reference range was not used to interpret this result as normal/abnormal. BACTERIA (test code = 1654781499) Few Negative A SQ EPITH (test code = 8681347577) HPF Lab Interpretation (test code = 68056-4) [facility]22:48* Test Item Value Reference Range Interpretation Comme nts APPEARANCE (test code = 9825101476) Hazy Clear A COLOR (test code = 0159749342) Yellow Yellow PH (test code = 1289990656) 4.8-8.0 SP GRAVITY (test code = 2047952427) 1.003-1.030 GLU U QUAL (test code = 4867123353) Normal Normal BLOOD (test code = 9521405890) Negative Negative KETONES (test code = 5771295650) 5 mg/dL Negative A PROTEIN (test code = 2887-8) Negative Negative UROBILIN (test code = 0161964532) 4.0 mg/dL Normal A BILIRUBIN (test code = 9517543872) Negative Negative NITRITE (test code = 5951681586) Negative Negative LEUK GRUPO (test code = 6460829412) Negative Negative RBC/HPF (test code = 6446930012) See_Comment [Automated Thubrikar Aortic Valve] The system which generated this result transmitted reference range: 0 - 3 HPF. The reference range was not used to interpret this result as normal/abnormal. WBC/HPF (test code = 4211203960) <1 See_Comment [Automated Thubrikar Aortic Valve] The system which generated this result transmitted reference range: 0 - 5 HPF. The reference range was not used to interpret this result as normal/abnormal. BACTERIA (test code = 6072740038) Few Negative A SQ EPITH (test code = 5649901398) HPF Lab Interpretation (test code = 32593-7) Abnormal [facility] V9281-83-22 02:45:00* Test Item Value Reference Range Interpretation Comments TROPONIN I (test code = 4027087420) 0.002 ng/mL See_Comment [Automated message] The system [...] of biotin. Lab Interpretation (test code = 58304-4) Normal [facility] R7634-94-35 02:45:00* Test Item Value Reference Range Interpretation Comme nts TROPONIN I (test code = 1356405192) 0.002 ng/mL See_Comment [Automated Thubrikar Aortic Valve] The system which generated this result transmitted reference range: <=0.034. The reference range was not used to interpret this result as normal/abnormal. LYNDSAY (test code = LYNDSAY) Lab Interpretation (test code = 10863-0) Normal [facility] SXY-DRB9421-35-29 02:41:57* Test Item Value Reference Range Interpretation Comme nts NT-proBNP (test code = 7785804647) 169 pg/mL See_Comment H [Automated message] The system which generated this result transmitted reference range: <=125. The reference range was not used to interpret this result as normal/abnormal. LYNDSAY (test code = LYNDSAY) Biotin has been reported to cause a negative bias, interpret results relative to patient's use of biotin. Lab Interpretation (test code = 54032-9) Abnormal [facility] QWJ-FAS3683-78-29 02:41:57* Test Item Value Reference Range Interpretation Comme nts NT-proBNP (test code = 3370948931) 169 pg/mL See_Comment H [Automated Thubrikar Aortic Valve] The system which generated this result transmitted reference range: <=125. The reference range was not used to interpret this result as normal/abnormal. LYNDSAY (test code = LYNDSAY) Lab Interpretation (test code = 04310-3) Abnormal [facility]. METABOLIC PANEL (88022)2021-03-17 02:09:13* Test Item Value Reference Range Interpretation Comme nts NA (test code = 4674558110) 137 mmol/L 135-145 K (test code = 5341445686) 4.2 mmol/L 3.5-5.0 CL (test code = 1872761365) 102 mmol/L 98-108 CO2 TOTAL (test code = 6819098885) 25 mmol/L 23-31 AGAP (test code = 8112335986) 2-16 BUN (test code = 0830878711) 18 mg/dL 7-23 GLUCOSE (test code = 6396972161) 144 mg/dL 70-110 H CREATININE (test code = 6611805190) 0.77 mg/dL 0.50-1.04 TOTAL BILI (test code = 2573006235) 0.4 mg/dL 0.1-1.1 CALCIUM (test code = 8015219932) 8.9 mg/dL 8.6-10.6 T PROTEIN (test code = 0954446644) 6.8 g/dL 6.3-8.2 ALBUMIN (test code = 0566939369) 3.9 g/dL 3.5-5.0 ALK PHOS (test code = 4892622496) 84 U/L 34-122 ALTv (test code = 1742-6) 13 U/L 5-35 AST(SGOT) (test code = 2814309348) 17 U/L 13-40 eGFR (test code = 6987043190) mL/min/1.73m2 LYNDSAY (test code = LYNDSAY) Association [...] imaging tests). Lab Interpretation (test code = 06634-2) Abnormal [facility]. METABOLIC PANEL (54334)2021-03-17 02:09:13* Test Item Value Reference Range Interpretation Comme nts NA (test code = 7555255475) 137 mmol/L 135-145 K (test code = 3813662245) 4.2 mmol/L 3.5-5.0 CL (test code = 4778739801) 102 mmol/L 98-108 CO2 TOTAL (test code = 5954909089) 25 mmol/L 23-31 AGAP (test code = 1663847513) 2-16 BUN (test code = 1584428162) 18 mg/dL 7-23 GLUCOSE (test code = 0409310478) 144 mg/dL 70-110 H CREATININE (test code = 4765503215) 0.77 mg/dL 0.50-1.04 TOTAL BILI (test code = 9402067926) 0.4 mg/dL 0.1-1.1 CALCIUM (test code = 2060905811) 8.9 mg/dL 8.6-10.6 T PROTEIN (test code = 0253184217) 6.8 g/dL 6.3-8.2 ALBUMIN (test code = 8657601179) 3.9 g/dL 3.5-5.0 ALK PHOS (test code = 6005711058) 84 U/L 34-122 ALTv (test code = 1742-6) 13 U/L 5-35 AST(SGOT) (test code = 2365227878) 17 U/L 13-40 eGFR (test code = 4790806884) mL/min/1.73m2 LYNDSAY (test code = LYNDSAY) Lab Interpretation (test cod e = 76807-3) Abnormal [facility] WITH LUTY5556-74-17 01:56:33* Test Item Value Reference Range Interpretation [...] g/dL 31.6-35.1 L RDW-SD (test code = 64839-5) 55.5 fL 39.0-49.9 H RDW-CV (test code = 788-0) 18.9 % 12.0-15.5 H PLT (test code = 777-3) See_Comment H [Automated messa ge] The system which generated this result transmitted reference range: 166 - 358 10*3/?L. The reference range was not used to interpret this result as normal/abnormal. MPV (test code = 25328-4) 8.2 fL 9.5-12.9 L NRBC/100 WBC (test code = 6914339324) See_Comment [Automated KDS ssage] The system which generated this result transmitted reference range: 0.0 - 10.0 /100 WBCs. The reference range was not used to interpret this result as normal/abnormal. NRBC x10^3 (test code = 9900034925) <0.01 See_Comment [Automated messa ge] The system which generated this result transmitted reference range: 10*3/?L. The reference range was not used to interpret this result as normal/abnormal. GRAN MAT (NEUT) % (test code = 770-8) 61.7 % IMM GRAN % (test code = 2342967495) 0.80 % LYMPH % (test code = 736-9) 28.5 % MONO % (test code = 5905-5) 6.3 % EOS % (test code = 713-8) 1.8 % BASO % (test code = 706-2) 0.9 % GRAN MAT x10^3(ANC) (test code = 3402365076) 7.31 10*3/uL 1.88-7.09 H IMM GRAN x10^3 (test code = 6061219076) 0.09 10*3/uL 0.00-0.06 H LYMPH x10^3 (test code = 731-0) 3.38 10*3/uL 1.32-3.29 H MONO x10^3 (test code = 742-7) 0.75 10*3/uL 0.33-0.92 EOS x10^3 (test code = 711-2) 0.21 10*3/uL 0.03-0.39 BASO x10^3 (test code = 704-7) 0.11 10*3/uL 0.01-0.07 H Lab Interpretation (test code = 55689-3) Abnormal [facility] WITH YZMT7566-08-71 01:56:33* Test Item Value Reference Range Interpretation Comme nts WBC (test code = 6690-2) See_Comment H [Automated messa ge] The system which generated this result transmitted reference range: 4.30 - 11.10 10*3/?L. The reference range was not used to interpret this result as normal/abnormal. RBC (test code = 789-8) See_Comment [Automated myBestHelpera ge] The system which generated this result [...] g/dL 31.6-35.1 L RDW-SD (test code = 20765-6) 55.5 fL 39.0-49.9 H RDW-CV (test code = 788-0) 18.9 % 12.0-15.5 H PLT (test code = 777-3) See_Comment H [Automated messa ge] The system which generated this result transmitted reference range: 166 - 358 10*3/?L. The reference range was not used to interpret this result as normal/abnormal. MPV (test code = 26472-6) 8.2 fL 9.5-12.9 L NRBC/100 WBC (test code = 4037970627) See_Comment [Automated KDS ssage] The system which generated this result transmitted reference range: 0.0 - 10.0 /100 WBCs. The reference range was not used to interpret this result as normal/abnormal. NRBC x10^3 (test code = 7185301675) <0.01 See_Comment [Automated messa ge] The system which generated this result transmitted reference range: 10*3/?L. The reference range was not used to interpret this result as normal/abnormal. GRAN MAT (NEUT) % (test code = 770-8) 61.7 % IMM GRAN % (test code = 6711335684) 0.80 % LYMPH % (test code = 736-9) 28.5 % MONO % (test code = 5905-5) 6.3 % EOS % (test code = 713-8) 1.8 % BASO % (test code = 706-2) 0.9 % GRAN MAT x10^3(ANC) (test code = 7036277882) 7.31 10*3/uL 1.88-7.09 H IMM GRAN x10^3 (test code = 4697668161) 0.09 10*3/uL 0.00-0.06 H LYMPH x10^3 (test code = 731-0) 3.38 10*3/uL 1.32-3.29 H MONO x10^3 (test code = 742-7) 0.75 10*3/uL 0.33-0.92 EOS x10^3 (test code = 711-2) 0.21 10*3/uL 0.03-0.39 BASO x10^3 (test code = 704-7) 0.11 10*3/uL 0.01-0.07 H Lab Interpretation (test code = 25304-9) Abnormal [place] [address] (ID NOW RAPID TESTING)2021-03-17 01:38:12* Test Item Value Reference Range Interpretation Comme nts SARS-CoV-2 Rapid ID NOW (test code = 47582-8) Not Detected Not Detected LYNDSAY (test code = LYNDSAY) ID NOW COVID-19 As say is an isothermal nucleic acid amplification test intended for the qualitative detection of nucleic acid from SARS-CoV-2 viral RNA in nasopharyngeal (PARARESCUE MANAGER) specimens. It is used under Emergency [...] clinically indicated. Lab Interpretation (test code = 14179-3) Normal [place] [address] (ID NOW RAPID TESTING)2021-03-17 01:38:12* Test Item Value Reference Range Interpretation Comme nts SARS-CoV-2 Rapid ID NOW (raisa t code = 49940-4) Not Detected Not Detected LYNDSAY (test code = LYNDSAY) Lab Interpretation (test cod e = 41670-1) Normal [place] [address] (ID NOW RAPID TESTING)2021-02-19 17:42:45* Test Item Value Reference Range Interpretation Comme nts SARS-CoV-2 Rapid ID NOW (test code = 40918-8) Not Detected Not Detected LYNDSAY (test code = LYNDSAY) ID NOW COVID-19 As say is an isothermal nucleic acid amplification test intended for the qualitative detection of nucleic acid from SARS-CoV-2 viral RNA in nasopharyngeal (PARARESCUE MANAGER) specimens. It is used under Emergency [...] clinically indicated. Lab Interpretation (test code = 07481-0) Normal [facility] PEL[facility] W RZOOOZNA6323-56-51 17:24:55Thickening of the gastric antrum and duodenal [...] Electronicallysigned by James Freeman at 02/19/2021 12:24 PMOd[facility] CenterUrinalysis2021-08-03 17:03:40* Test Item Value Reference Range Interpretation Comme nts APPEARANCE (test code = 5516499306) Hazy Clear A COLOR (test code = 5854636461) Mabel Yellow A PH (test code = 5067389603) 4.8-8.0 SP GRAVITY (test code = 3235019681) 1.003-1.030 H GLU U QUAL (test code = 3098002312) Normal Normal BLOOD (test code = 0655686870) Negative Negative KETONES (test code = 3864988902) 5 mg/dL Negative A PROTEIN (test code = 2887-8) 30 mg/dL Negative A UROBILIN (test code = 4100186837) 4.0 mg/dL Normal A BILIRUBIN (test code = 5614216791) 4 mg/dL Negative A NITRITE (test code = 4477083347) Negative Negative LEUK GRUPO (test code = 4776069177) Negative Negative RBC/HPF (test code = 1579753898) See_Comment H [Automated messa ge] The system which generated this result transmitted reference range: 0 - 3 HPF. The reference range was not used to interpret this result as normal/abnormal. WBC/HPF (test code = 1515532232) See_Comment H [Automated messa ge] The system which generated this result transmitted reference range: 0 - 5 HPF. The reference range was not used to interpret this result as normal/abnormal. BACTERIA (test code = 0652326450) Few Negative A MUCOUS (test code = 2434437047) Moderate Negative LPF A SQ EPITH (test code = 8162551607) HPF CA OXALATE (test code = 5344184444) See_Comment H [Automated messa ge] The system which generated this result transmitted reference range: <=1 HPF. The reference range was not used to interpret this result as normal/abnormal. Ictotest (test code = 4211488884) Negative Lab Interpretation (test code = 04763-6) Abnormal [facility] Center[facility] Metabolic Wzbgv8028-19-37 16:34:55* Test Item Value Reference Range Interpretation Comme nts NA (test code = 8296115666) 139 mmol/L 135-145 K (test code = 4514460563) 4.3 mmol/L 3.5-5.0 CL (test code = 1295972779) 105 mmol/L 98-108 CO2 TOTAL (test code = 1766532859) 26 mmol/L 23-31 AGAP (test code = 5541812442) 2-16 BUN (test code = 0032987089) 11 mg/dL 7-23 GLUCOSE (test code = 6012521961) 95 mg/dL 70-110 CREATININE (test code = 0284386880) 0.70 mg/dL 0.50-1.04 TOTAL BILI (test code = 4082485780) 0.6 mg/dL 0.1-1.1 CALCIUM (test code = 4695643996) 8.9 mg/dL 8.6-10.6 T PROTEIN (test code = 8101916063) 7.7 g/dL 6.3-8.2 ALBUMIN (test code = 9954707042) 4.1 g/dL 3.5-5.0 ALK PHOS (test code = 2486838787) 79 U/L 34-122 ALTv (test code = 1742-6) 10 U/L 5-35 AST(SGOT) (test code = 2973133523) 22 U/L 13-40 eGFR (test code = 5861693762) mL/min/1.73m2 LYNDSAY (test code = LYNDSAY) Association [...] or urine or abnormalities in imaging tests). [facility] CenterLipase, Kqsfi1109-38-48 16:34:14* Test Item Value Reference Range Interpretation Comme nts LIPASE (test code = 1200689380) 45 U/L 0-220 Lab Interpretation (test cod e = 31552-3) Normal [facility] CenterCBC with Ewpzxdoicsfs3317-33-05 16:21:12* Test Item Value Reference Range Interpretation Comme nts WBC (test code = 6690-2) See_Comment [Automated myBestHelpera ge] The system which generated this result [...] g/dL 31.6-35.1 L RDW-SD (test code = 04897-3) 54.4 fL 39.0-49.9 H RDW-CV (test code = 788-0) 18.3 % 12.0-15.5 H PLT (test code = 777-3) See_Comment H [Automated messa ge] The system which generated this result transmitted reference range: 166 - 358 10*3/?L. The reference range was not used to interpret this result as normal/abnormal. MPV (test code = 73882-8) 8.5 fL 9.5-12.9 L NRBC/100 WBC (test code = 2210712679) See_Comment [Automated me ssage] The system which generated this result transmitted reference range: 0.0 - 10.0 /100 WBCs. The reference range was not used to interpret this result as normal/abnormal. NRBC x10^3 (test code = 7510899948) <0.01 See_Comment [Automated messa ge] The system which generated this result transmitted reference range: 10*3/?L. The reference range was not used to interpret this result as normal/abnormal. GRAN MAT (NEUT) % (test code = 770-8) 78.3 % IMM GRAN % (test code = 3128413600) 0.40 % LYMPH % (test code = 736-9) 15.4 % MONO % (test code = 5905-5) 4.8 % EOS % (test code = 713-8) 0.1 % BASO % (test code = 706-2) 1.0 % GRAN MAT x10^3(ANC) (test code = 8678262030) 7.15 10*3/uL 1.88-7.09 H IMM GRAN x10^3 (test code = 4233778462) 0.04 10*3/uL 0.00-0.06 LYMPH x10^3 (test code = 731-0) 1.41 10*3/uL 1.32-3.29 MONO x10^3 (test code = 742-7) 0.44 10*3/uL 0.33-0.92 EOS x10^3 (test code = 711-2) <0.03 0.03-0.39 L BASO x10^3 (test code = 704-7) 0.09 10*3/uL 0.01-0.07 H Lab Interpretation (test code = 48144-0) Abnormal [facility] Notes Date/Time Note Provider Source 2023-09-11 11:34:02 FzX9V2dDBoBMModyLEGGEAPyjYKojbC/d0RsA3 HycnxBGHxvg/KAzMyhyje3CL6w6367-45-29F4 1:34:02 Chief ComplaintPatient presents withFollow-up [facility] BETO DonahueN [address]6779-5Fdfkk WlozIK5356-04-75M97:34:35Nurse NoteTXT1.2.840.123964.1.13.131.2.7.2.7 85740|[id number] for patient swqj65322-6Ohrsp NoteLNNARRATIVEFormatted C-CDA narrative [facility] [facility] [id number] 266-12-46U26:34:351.2.840.271797.1.72. 3.15|1.2.840.700729.1.13.131.2.7.2.727 [id number] [facility] 2023-08-12 16:08:34 WsGBdtYomwHRc55Q8hhVaiEl/IexrBf9z+T3SV dOvyrjSkXEDam1eDOkC1BJWakv2191-14-63K4 6:08:34 Bryan spoke to patient and patient decided to leave AMA.AMA form signed by patient and attached to paperwork.Patient in stable condition with AMA. IV line removed and patient was assisted onto wheelchair and moved to the [facility].Patient called her prior to leaving room and will be picking up patient. 87723-2Ylmfwyxwg department WtbsMR0189-22-61B19:09:43Emergency department NoteTXT1.2.840.629880.1.13.104.2.7.2.7 83036|[id number] for patient xcej96064-1GhtaHBLDJMQBDWZPzzhjytaz C-CDA narrative neis344197437Rsancvds [place] RNUT[address] [id number] UESMKZIYWPIFDDVMRWJC2187-78-32J39:09:4 31.2.840.666675.1.72.3.15|1.2.840.1143 50.1.13.104.2.7.2.727879_[id number] Steph Dumont RN [facility] 2023-08-12 15:56:21 +/PnMiKbPdN136/euHypPGzsG7V7nQEBvTkVJy X4FjanvnqYmBtUvuhzQpeVMKrU8917-52-23G8 5:56:21 Patient requesting to talk to provider - provider aware.Patient refused tylenol as she said medication does not improve her condition and she does not want to throw it up.Patient also refusing blood draw at this time. 26747-1Bvlrupbgu department RoqtZC8765-77-15F45:57:14Emerd[facility] department NoteTXT1.2.840.164250.1.13.104.2.7.2.7 12854|[id number] for patient ghck48093-7XalbPULSZNVQLKLVgdsneafm C-CDA narrative text[id number] BYFMAMVTDXJGLJTCZEXU7470-13-63A55:57:1 41.2.840.146819.1.72.3.15|1.20.1143 50.1.13.104.2.7.2.727879_[id number] [facility] 2023-08-12 14:50:00 az0LtVZK8ztLsNfsGeXj4NFQvCrYSn3z0N/mPV xi9MptZ4NLIn8pA6jW9BP3Waur0438-65-19C0 4:50:00 Patient's name and verified with patient.No [...] [place] [address]-2Dzideuiqj department GdoxRB4688-62-63A02:29:07Emerdallas county medical center department NoteTXT1.2.840.321596.1.13.104.2.7.2.7 38484|[id number] for patient gcce42024-1UabyASOOJFQOOOZHvzvcjeyv C-CDA narrative text[address] FiujLmfxktjhjIlxagzebmUHMF2890973951PR AQELDCZXSQDWMKDMHIGF5493-99-44Y30:29:0 71.2.840.375310.1.72.3.15|1.2.840.1143 50.1.13.104.2.7.2.727879_[id number] [facility] 2023-08-12 14:17:22 mg3OIVr2bK5xV8Vt4LQ34FIsPMmz++1fti0bx6 bKA3AedS+huNHarctGpPDeWdxf0067-62-15O1 4:17:22 Patient had witnessed seizure like activity.DO Flor at bedside.Patient stopped seizure activity and had no postictal phase.Patient coherent, alert and oriented/answering all questions appropriately. 21787-4Crpryrmcv department RjucYS5675-58-30X34:18:15[facility] department NoteTXT1.2.840.375005.1.13.104.2.7.2.7 80690|[id number] for patient xaja13229-2RjsbPGNMERKNHYIJpraiblfy C-CDA narrative text[address] VfeyJhacfbcfjPjyimcbgoHVBZ5014555630YX CJYIAJPXVZYOZNFWBWJO4345-87-76Q42:18:1 51.2.840.193855.1.72.3.15|1.2.840.1143 50.1.13.104.2.7.2.727879_[id number] [facility] 2023-08-12 13:45:33 NdUDl0Bh0cKEEkvpTws6EdY11Lp2gSr/HjgJpP W+B+ha6wQH5l0yOn/LEn7XXEE47389-63-50H0 3:45:33 Patient here for chest pain that started approximately 1 hour ago. Patient had seizure like activity in the vehicle while attempting to get patient out of the car, patient had no post ictal phase. Patient c/o substernal chest pain and jaw pain. 62812-7Elmlrmthp department Triage hefnWJ3410-04-46F76:46:59[facility] Triage noteTXT1.2.840.359232.1.13.104.2.7.2.7 11804|[id number] for patient xxoz28820-9Rmkuyjulr department NoteLNNARRATIVEFormatted C-CDA narrative [id number] S Cryer RNUT09 Joseph StreetWktbFhdzeeacoNvzrnbqmbZBGV1584470241LX DSPKUEGYATYSGSUTOUCJ0283-00-62W15:46:5 91.2.840.013203.1.72.3.15|1.2.840.1143 50.1.13.104.2.7.2.727879_[id number] Jasvir Reaves RN [facility] 2023-08-12 13:42:00 LhLkXcBjAJNB3+avrS/8luvAzbcRoJIK45Qx/c +2Rw+/N2LQ51J5x9r1yhrkDYsU7388-65-68Z8 3:42:00 [facility] Emergency Department NotePatient Name: Heather TurnerDate of : 1970 53 year old femaleTreatment Room: VA3/VM7Bhmgrlv Record Number: [id number] Care Physician: PATIENT DOES NOT HAVE A PCPPatient Escorted by: Family [5]Mode of Arrival: Personal means [1]EMS Treatment Prior to ED Arrival:COOK AT SCHOOL treatment: NoneTravel and Exposure Screening:SymptomsDoes patient have [...] received in last 5 years: NoChildhood immunizations: Fz-ll-tcueFhnnvqgwd:AllergiesAllergen ReactionsGreen Tea Other - See commentsSeizuresDiclofenac HypertensionKeppra [...] Right 08/14/2015Surgeon: Luis Jones Jr., DP; [facility] [...] (*) 0.01 - 0.07 10*3/uLCOMP. METABOLIC PANEL (19608) - AbnormalNA 140 135 - 145 mmol/LK [...] U/LAST(SGOT) 21 13 - 40 U/LeGFR 107.1 mL/min/1.97o1DJUVAS ACID WHOLE BLOOD - NormalLACTIC ACID 1.56 0.50 - 2.20 mmol/LURINALYSISTROPONIN IEKG:If EKG completed, see Procedure Note.Orders and Treatments:Orders Placed This EncounterProceduresCbc with DiffComp. Metabolic Panel (27803)UrinalysisLactic Acid Whole BloodTroponin IOrders Placed This EncounterMedicationslacosamide (VIMPAT) 100 mg in NaCl 0.9% (NS) 50 mL piggybackacetaminophen (TYLENOL) tablet 1,000 mgFirst Provider Eval:ED EventsDate/Time Event User Vimnaick24/24/24 1345 Medical Screening Begins BRIAN BRYAN --08/12/23 [...] fileFollow-up:Contact information for follow-Yehuda Segovia MDSpecialty: [facility] [place] AND [address] [address]Prtsb: [phone]-Emergency DepartmentSpecialty: Emergency [address] [place] [address]Ebtjq: [phone]: If symptoms worsen as documented in the dischargeElectronically signed by:Brian Bryan DO08/12/23 1605Brian Bryan DO08/12/23 1605 81575-3Ygejuinbs Emergency department DzxxBM4519-80-96O27:05:59Physician Emergency department NoteTXT1.2.840.009151.1.13.104.2.7.2.7 19494|[id number] for patient ssli19307-3Vsxvqjuml department NoteLNNARRATIVEFormatted C-CDA narrative text[address] OdpyK[id number] WBAMWSRHWBYZZVENMFNF9645-76-60I47:05:5 [id number] [facility]
[2023-11-09] MEDS ORDERED: DIVALPROEX DR 250 MG TAB PO ONE (09:53)
[2023-11-09 10:36] LABS: Absolute Basophils 0.1 K/uL (0-0.5); Absolute Eosinophils 0.1 K/uL (0-0.5); Absolute Lymphocytes (CBC) 2.2 K/uL (0.7-4.9); Absolute Monocytes 0.8 K/uL (0.1-1.3); Absolute Neutrophil 5.3 K/uL (1.8-8.0); Eosinophils % 0.7 % (0-4.4); Hematocrit 29.8 % (36.0-45.0); Hemoglobin 9.3 g/dL (12.0-15.0); Lymphocytes % 26.3 % (15.3-44.8); MCH 25.5 pg (27.0-35.0); MCHC 31.1 g/dL (32.0-36.0); MPV 7.8 fL (7.6-11.3); Monocytes % 9.2 % (3.3-12.3); Neutrophils % 62.8 % (41.7-73.7); Nucleated Red Blood Cells % 0.4 % (0-0); Platelets 358 thou/uL (152-406); RBC Red Blood Cell Count 3.63 M/uL (3.86-4.86); Red Cell Distribution Width 22.4 % (12.1-15.2)
[2023-11-09 10:51] LABS: Anion Gap 10.6 mEq/L (5.0-15.0); Potassium 3.6 mEq/L (3.5-5.1)
[2023-11-09 10:55] LABS: Anisocytosis 1+; Blood Morphology Comment NOTED (NOT SEEN); Platelet Estimate ADEQ; Polychromasia 1+; White Blood Cell Scan OK (OK)
--- NOTE | 2023-11-09 11:08 | RAD REPORT ---
EXAM DESCRIPTION: CT - CTHCSPWOC - 11/09/2023 9:30 am CLINICAL HISTORY: seizure, fall COMPARISON: C Spine Wo Con dated 09/01/2023; Thoracic Spine W/o Cont dated 09/01/2023; C Spine Wo Con dated 07/14/2023; Thoracic Spine W/o Cont dated 07/14/2023; Head C Spine Cap Wo Con dated 09/18/2023 TECHNIQUE: Axial thin cut noncontrast CT images of the head were obtained. Axial thin cut noncontrast CT images of the cervical spine were obtained. Multiplanar reformatted images were generated and reviewed. All CT scans are performed using dose optimization technique as appropriate and may include automated exposure control or mA/KV adjustment according to patient size. FINDINGS: CT HEAD WITHOUT CONTRAST: No acute hemorrhage, hydrocephalus or extra-axial collection is identified. Mildly hyperdense ovoid s mall lesion along the anterior falx on the right measuring 5 mm may represent a small meningioma, sta ble in appearance. No areas of brain edema or midline shift. The paranasal sinuses and mastoids are clear.The calvarium is intact. CT CERVICAL SPINE WITHOUT CONTRAST: No fracture or subluxation. Stable anterior plating hardware spanning C3 -C7. Degrees of ankylosis ac ross the facet articulations at those levels. No prevertebral soft tissues swelling is identified. IMPRESSION: No acute traumatic intracranial or cervical spine findings. Stable findings as above.
--- NOTE | 2023-11-09 11:16 | RAD REPORT ---
EXAM DESCRIPTION: RAD - Pelvis - 11/09/2023 9:57 am CLINICAL HISTORY: BLUNT TRAUMA COMPARISON: Pelvis dated 10/07/2023 TECHNIQUE: Single AP view of the pelvis. FINDINGS: The visualized pelvic ring is intact. No suspicious osseous lesions. No significant degene rative changes or erosions of the hip joints. Other pelvic joints are unremarkable. Few pelvic phlebo liths are noted. Visualized aspects of the abdomen and soft tissues are unremarkable. IMPRESSION: No acute osseous abnormality of the bony pelvis.
[2023-11-09] MEDS ORDERED: HYDROCODONE/APAP 10/325 TAB ONE (11:17)
--- NOTE | 2023-11-09 11:18 | RAD REPORT ---
EXAM DESCRIPTION: RAD - Femur Left - 11/09/2023 9:57 am CLINICAL HISTORY: PAIN COMPARISON: No comparisons TECHNIQUE: Left femur, 2 views. FINDINGS: No fracture is identified. Mild degenerative changes at the hip and knee joints. Mild vasc ular calcifications. There is no dislocation or periosteal reaction noted. No acute or suspicious bon y finding. IMPRESSION: No acute osseus abnormality. Degenerative changes as above.
--- NOTE | 2023-11-09 11:19 | RAD REPORT ---
EXAM DESCRIPTION: RAD - Ribs Left - 11/09/2023 9:57 am CLINICAL HISTORY: PAIN COMPARISON: Chest Single View dated 11/03/2023 TECHNIQUE: Left ribs, 3 views. FINDINGS: No displaced rib fracture is evident. No aggressive rib lesion. No underlying pneumothorax, effusion, infiltrate or pulmonary contusion. Moderate to advanced lower lumbar degenerative changes. IMPRESSION: Negative left rib series.
--- NOTE | 2023-11-09 11:21 | RAD REPORT ---
EXAM DESCRIPTION: [place] Single View11/09/2023 9:57 am CLINICAL HISTORY: BLUNT CHEST TRAUMA COMPARISON: Chest Single View dated 11/03/2023; Chest Single View dated 10/31/2023; Chest Single View dated 10/25/2023; Chest Single View dated 10/06/2023 TECHNIQUE: Portable AP view of the chest. FINDINGS: The lungs are clear. Interval improvement of central interstitial prominence. No pneumoth orax or effusion. The heart is mildly enlarged. Mediastinal contours are unremarkable. IMPRESSION: No acute pulmonary process. Stable mild cardiomegaly.
[2023-11-09] MEDS ORDERED: MORPHINE 4 MG/ML SYR ONE (11:35)
--- NOTE | 2023-11-09 11:40 | EDPHYS ---
Physician Documentation [facility] Name: Heather Coon Age: 53 yrs Sex: Female : 1970 Arrival Date: 11/09/2023 Time: 09:02 Bed 19 Private MD: ED Physician Jones Parham HPI: 11/08 09:24 This 53 yrs old Female presents to ER via Unassigned with complaints of seizure. rn 09:24 The patient presents after having a single isolated seizure. Character of seizure(s): rn Loss of consciousness: it is not known if the patient experienced loss of consciousness, Motor activity: generalized, Incontinence: none, Apnea: the patient did not experience apnea, Circulation: the patient did not experience evidence of pulse disturbance. Seizure onset: just prior to arrival. Associated injury: Neck: Chest: Left lower extremity:. Current symptoms: Currently, the patient is not experiencing any symptoms. The patient has experienced similar episodes in the past. The patient has not recently seen a physician. EMS reports patient called out for possible seizure. Was not feeling well at home and thinks she had a seizure. Had a brief 10-second seizure in ambulance bay here at hospital. No medication given. Patient reports has not run out of seizure medication, but has not taken it for the last 2 days. Patient reports pain to left chest and left thigh, presumably from a fall due to seizure. Patient denies any shortness of breath or abdominal pain. No new back pain.. Historical: - Allergies: 11:02 fluoxetine; ph 11:02 Green Tea; ph 11:02 Keppra; not an allergy; ph - PMHx: 11:02 Anxiety; Arthritis; Bipolar disorder; Cancer-Cervical; Chronic pain; Chronic ph obstructive lung disease; Congestive heart failure; Depression; Diverticulitis; Herniated Back Disc; Hypertension; intestinal mass; Myocardial infarction; pt reports hx of seizures; Spastic Muscles; stroke; - PSHx: 11:02 back surgery; cervical fusion; Cholecystectomy; foot; Tonsillectomy; ph - Immunization history:: Adult Immunizations unknown. - Infectious Disease History:: Denies. - Family history:: not pertinent. - Hospitalizations: : No recent hospitalization is reported. - Social history:: Smoking status: Patient reports the use of cigarette tobacco products, smokes one-half pack cigarettes per day. ROS: 09:24 Constitutional: Negative for fever, chills, and weight loss, Neck: Positive for mild rn neck pain Cardiovascular: Positive for left anterior lateral chest wall pain Respiratory: Negative for shortness of breath, cough, wheezing, and pleuritic chest pain, Abdomen/GI: Negative for abdominal pain, nausea, vomiting, diarrhea, and constipation, Back: Positive for chronic back pain but negative for any acute changes : Negative for injury, bleeding, discharge, and swelling, MS/Extremity: Positive for pain to left thigh. Skin: Negative for injury, rash, and discoloration, Neuro: Positive for headache and possible seizure. No focal weakness or numbness Exam: 09:24 Constitutional: This is a well developed, well nourished patient who is awake, alert, rn and in no acute distress. Following all commands and does not appear postictal Head/Face: Normocephalic, atraumatic. Eyes: Pupils equal round and reactive to light, extra-ocular motions intact. ENT: No oral laceration or bleeding Neck: No midline cervical tenderness Chest/axilla: Left anterior lateral and inferior rib tenderness. No ecchymosis or crepitus. Cardiovascular: Regular rate and rhythm. No pulse deficits. Respiratory: No increased work of breathing, no retractions or nasal flaring. Abdomen/GI: Soft, non-tender Skin: Warm, dry MS/ Extremity: Pulses equal, no cyanosis. Neurovascular intact. Full, normal range of motion. Equal circumference. Mild pain mid left thigh. No open wounds or significant hematoma Neuro: Awake and alert, GCS 15, oriented to person, place, time, and situation. Cranial nerves II-XII grossly intact. Motor strength 5/5 in all extremities. Sensory grossly intact. Cerebellar exam normal. Vital Signs: 09:15 BP 127 / 99; Pulse 114; Resp 20; Temp 98; Pulse Ox 98% on R/A; ph 12:26 BP 132 / 89; Pulse 108; Resp 18; Temp 98; Pulse Ox 99% on R/A; ph MDM: 09:04 Patient medically screened. rn 11:37 Differential diagnosis: seizure, Rib contusion, leg contusion, fracture. Data reviewed: rn vital signs, nurses notes, lab test result(s), radiologic studies, CT scan, plain films, and as a result, I will discharge patient. Counseling: I had a detailed discussion with the patient and/or guardian regarding the historical points, exam findings, and any diagnostic results supporting the discharge/admit diagnosis, radiology results, the need for outpatient follow up, to return to the emergency department if symptoms worsen or persist or if there are any questions or concerns that arise at home. Special discussion: I discussed with the patient/guardian in detail that at this point there is no indication for admission to the hospital. It is understood, however, that if the symptoms persist or worsen the patient needs to return immediately for re-evaluation. ED course: No acute traumatic findings on workup. Patient states not taking her Depakote as prescribed. Will discharge home with instructions to take as prescribed. I have personally reviewed all of the results, including but not limited to blood tests and imaging deemed necessary to safely discharge this patient at this time. All results given to and printed out for patient. I personally went over all the results with the patient and answered all questions. Patient will follow-up with PCP and or specialist as discussed. Return precautions given and understood.. 11/08 09:10 Order name: CBC with Diff; Complete Time: 11:11 rn 11/08 09:10 Order name: Basic Metabolic Panel; Complete Time: 11: rn 11/08 10:42 Order name: CBC Smear Scan; Complete Time: 11:11 EDMS 11/08 09:10 Order name: CT Head C Spine; Complete Time: 11: rn 11/08 09:10 Order name: XRAY Ribs LEFT; Complete Time: 11: rn 11/08 09:10 Order name: XRAY Chest (1 view); Complete Time: 11: rn 11/08 09:10 Order name: XRAY Femur LEFT; Complete Time: 11: rn 11/08 09:10 Order name: XRAY Pelvis; Complete Time: 11:28 rn Administered Medications: 09:30 Drug: Diazepam PO 5 mg PO once Route: PO; ph 12:27 Follow up: Response: No adverse reaction ph 10:34 Drug: Valproic Acid PO 500 mg PO once Route: PO; ph 12:27 Follow up: Response: No adverse reaction ph 11:19 Drug: Sacul PO 10 mg-325 mg 1 tabs PO once Route: PO; ph 12:27 Follow up: Response: No adverse reaction; Pain is decreased; RASS: Alert and Calm (0) ph 11:46 Drug: morphine IM 4 mg IM once Route: IM; Site: left deltoid; ph 12:27 Follow up: Response: No adverse reaction; Pain is decreased; RASS: Alert and Calm (0) ph Disposition Summary: 11/09/23 11:40 Discharge Ordered Notes: Location: Home rn Problem: new rn Symptoms: have improved rn Condition: Stable rn Diagnosis - Epileptic seizures related to external causes, not intractable, without status rn epilepticus - Contusion of left front wall of thorax rn Followup: rn - With: Private Physician - When: As needed - Reason: Recheck today's complaints, Re-evaluation by your physician Discharge Instructions: - Discharge Summary Sheet rn - Rib Contusion rn - Seizure, Adult rn Forms: - Medication Reconciliation Form rn - Thank You Letter rn - Antibiotic fingernail sculptor - Prescription Opioid Use rn - Patient Portal Instructions rn - Leadership Thank You Letter rn Prescriptions: - acetaminophen-codeine 300-30 mg Oral tablet - take 1 tablet ORAL route every 8 hours As needed; 10 tablet; Refills: 0, rn Product Selection Permitted - Depakote 500 mg Oral Tablet - take 1 tablet ORAL route every 12 hours; 60 tablet; Refills: 0, Product rn Selection Permitted Signatures: Dispatcher [employer] EDJones Mane MD MD rn Hall, Patricia, RN RN ph Corrections: (The following items were deleted from the chart) 09:11 09:11 Head C Spine MPR Wo Con+CT.RAD.BRZ ordered. EDMS EDMS 09:11 09:11 Ribs Left+RAD.RAD.BRZ ordered. EDMS EDMS 09:11 09:11 Chest Single View+RAD.RAD.BRZ ordered. EDMS EDMS 09:11 09:11 Femur Left+RAD.RAD.BRZ ordered. EDMS EDMS 09:11 09:11 Pelvis+RAD.RAD.BRZ ordered. EDMS EDMS 09:11 09:11 CBC+H.LAB.BRZ ordered. EDMS EDMS 09:11 09:11 BASIC METABOLIC PANEL+C.LAB.BRZ ordered. EDIA EDMS 09:25 09:24 EMS reports patient called out for possible seizure. Was not feeling well at home rn and thinks she had a seizure. Had a brief 10-second seizure in ambulance bay here at hospital. No medication given. Patient reports has not run out of seizure medication, but has not taken it for the last 2 days. Patient reports pain to left chest and left thigh, presumably from a fall due to seizure.. rn
--- NOTE | 2023-11-09 11:40 | ER ---
Nurse's Notes [facility] Name: Heather Coon Age: 53 yrs Sex: Female : 1970 Arrival Date: 11/09/2023 Time: 09:02 Bed 19 Private MD: Diagnosis: Epileptic seizures related to external causes, not intractable, without status epilepticus;Contusion of left front wall of thorax Presentation: 11/08 09:15 Chief complaint: EMS states: Pt reports seizure at home, states that she was asleep on ph the couch, then woke up the floor, hx of seizures, VSS, c/o pain all over, worse in ribs. Coronavirus screen: Vaccine status: Patient reports receiving the 2nd dose of the covid vaccine. Ebola Screen: No symptoms or risks identified at this time. Initial Sepsis Screen: Does the patient meet any 2 criteria? No. Patient's initial sepsis screen is negative. Does the patient have a suspected source of infection? No. Patient's initial sepsis screen is negative. Risk Assessment: Do you want to hurt yourself or someone else? Patient reports no desire to harm self or others. Onset of symptoms was November 09, 2023. 09:15 Method Of Arrival: EMS: [facility] ph 09:15 Acuity: ANDER 3 ph Historical: - Allergies: 11:02 fluoxetine; ph 11:02 Green Tea; ph 11:02 Keppra; not an allergy; ph - PMHx: 11:02 Anxiety; Arthritis; Bipolar disorder; Cancer-Cervical; Chronic pain; Chronic ph obstructive lung disease; Congestive heart failure; Depression; Diverticulitis; Herniated Back Disc; Hypertension; intestinal mass; Myocardial infarction; pt reports hx of seizures; Spastic Muscles; stroke; - PSHx: 11:02 back surgery; cervical fusion; Cholecystectomy; foot; Tonsillectomy; ph - Immunization history:: Adult Immunizations unknown. - Infectious Disease History:: Denies. - Family history:: not pertinent. - Hospitalizations: : No recent hospitalization is reported. - Social history:: Smoking status: Patient reports the use of cigarette tobacco products, smokes one-half pack cigarettes per day. Screenin:35 [facility] ED Fall Risk Assessment (Adult) History of falling in the last 3 months, ph including since admission Yes- fall prone (multiple falls) (3 pts) Confusion or Disorientation No (0 pts) Intoxicated or Sedated No (0 pts) Impaired Gait Yes (1 pt) Mobility Assist Device Used Yes (1 pt) Altered Elimination No (0 pt) Score/Fall Risk Level 3 or more points = High Risk Oriented to surroundings, Maintained a safe environment, Used ambulatory aids as needed (educated on \T\ assisted with). Abuse screen: Denies threats or abuse. Denies injuries from another. Nutritional screening: No deficits noted. Tuberculosis screening: No symptoms or risk factors identified. Assessment: 10:37 General: Appears in no apparent distress. uncomfortable, Behavior is cooperative, ph appropriate for age, anxious. Pain: Complains of pain in back, chest and pelvis. Neuro: Level of Consciousness is awake, alert, obeys commands, Oriented to person, place, time, situation. Cardiovascular: Capillary refill < 3 seconds in bilateral fingers Patient's skin is warm and dry. Respiratory: Reports cough that is Airway is patent Respiratory effort is even, unlabored. Derm: Skin is pink, warm \T\ dry. 11:02 Reassessment: Patient appears in no apparent distress at this time. Patient and/or ph family updated on plan of care and expected duration. Pain level reassessed. Patient is alert, oriented x 3, equal unlabored respirations, skin warm/dry/pink. 11:20 Reassessment: Pt c/o pain, ERP notified and oral medication ordered, pt stating that ph she is unhappy that she did not get an IV for IV pain medications to be administered. Informed pt that blood work was sent and resulted and provider was awaiting imaging results. Vital Signs: 09:15 BP 127 / 99; Pulse 114; Resp 20; Temp 98; Pulse Ox 98% on R/A; ph 12:26 BP 132 / 89; Pulse 108; Resp 18; Temp 98; Pulse Ox 99% on R/A; ph ED Course: 09:04 Patient arrived in ED. rn 09:04 Jones Parham MD is Attending Physician. rn 09:12 Evonne Lord, BETH is Primary Nurse. ph 09:32 CT Head C Spine In Process Unspecified. EDMS 09:59 XRAY Ribs LEFT In Process Unspecified. EDMS 09:59 XRAY Chest (1 view) In Process Unspecified. EDMS 09:59 XRAY Femur LEFT In Process Unspecified. EDMS 09:59 XRAY Pelvis In Process Unspecified. EDMS 10:15 Missed attempt(s): 22 gauge in right antecubital area. Bleeding controlled, band aid ph applied, catheter tip intact. 10:28 Initial lab(s) drawn, by me, sent to lab. Missed attempt(s): 24 gauge in right upper aa5 arm. Bleeding controlled, band aid applied, catheter tip intact. 10:37 Triage completed. ph 10:38 Arm band placed on. ph 11:04 Patient has correct armband on for positive identification. Bed in low position. Call ph light in reach. Side rails up X2. Seizure precautions initiated. Pulse ox on. NIBP on. 12:25 No provider procedures requiring assistance completed. Patient did not have IV access ph during this emergency room visit. Administered Medications: 09:30 Drug: Diazepam PO 5 mg PO once Route: PO; ph 12:27 Follow up: Response: No adverse reaction ph 10:34 Drug: Valproic Acid PO 500 mg PO once Route: PO; ph 12:27 Follow up: Response: No adverse reaction ph 11:19 Drug: [place] PO 10 mg-325 mg 1 tabs PO once Route: PO; ph 12:27 Follow up: Response: No adverse reaction; Pain is decreased; RASS: Alert and Calm (0) ph 11:46 Drug: morphine IM 4 mg IM once Route: IM; Site: left deltoid; ph 12:27 Follow up: Response: No adverse reaction; Pain is decreased; RASS: Alert and Calm (0) ph Medication: 11:04 VIS not applicable for this client. ph Outcome: 11:40 Discharge ordered by . rn 12:26 Discharged to home via wheelchair, with significant other, ph 12:26 Condition: good 12:26 Discharge instructions given to patient, significant other, Instructed on discharge instructions, follow up and referral plans. medication usage, Demonstrated understanding of instructions, follow-up care, medications, Prescriptions given X 2, 12:27 Patient left the ED. ph Signatures: Dispatcher [employer] EDMS Jones Parham MD MD rn Calderon, Audri, RN RN aa5 Evonne Lord RN RN ph Corrections: (The following items were deleted from the chart) 12:27 12:26 Response: No adverse reaction ph ph
[2023-11-09 12:38] VITALS: BP 132/89; TEMP 98; O2SAT 99
== END 2023-11-09 12:27 | disposition home or self-care (01) ==
LOC: ER 09:02
DX: G40.509 Epileptic seizures related to external causes, not intractable, without status epilepticus (principal); S20.212A Contusion of left front wall of thorax, initial encounter; Z88.8 Allergy status to other drugs, medicaments and biological substances; Z91.018 Allergy to other foods
CPT/HCPCS: 36415; 70450; 71045; 72125; 72170; 80048; 85025; 96372; 99284

== ENCOUNTER 2023-11-12 01:53 | Inpatient (IN) | payer OTHER ==
--- OUTSIDE RECORDS SUMMARY | 2023-11-12 02:17 | XMS REPORT | Continuity of Care Document ---
Author Name Unknown Address [address] [facility]. [address] [place] [address] [facility] thconnect Address [address] [facility] [address] [place] [address] Care Team Providers Care Bass String Winder Name Role Phone Alina Aneta SUAREZ Primary Care Physician [phone] PANKAJ OBREGON Attending Clinician Un available AYDEE [...] Attending Clinician Selin Fry DO Attending Clinician [phone] Bud ELIZONDO, Selin Attending Clinician [phone] SELIN FERRER Attending Clinician Unavailable DEMETRIUS TOBAR Attending Clinician Unavailab KETAN Armenta Attending Clinician Unavail able Kael ROBOTICS APPLICATION ENGINEER, Ketan Sanders Attending Clinician [phone] BRIAN BRYAN Attending Clinician Unavailable DO, Brian Attending Clinician [phone] Jenifer ELIZONDO, Cara Hamilton Attending Clinician [phone] Aydee Go MD Attending Clinician [phone] System, Provider Not In Attending Clinician Unav Dallas Allen Attending Clinician [phone] Adam Garcia MD Attending Clinician [phone] Harry Newsome MD Attending Clinician [phone] Rocael ELIZONDO, Antwon Mccrary Attending Clinician + [phone] Yue Bui MD Attending Clinician [phone] Connie Davey MD Attending Clinician [phone] Mariah Aldridge MD Attending Clinician + [phone] Valerio ELIZONDO, Thomas Hopkins Attending Clinician CONNIE DAVEY Attending Clinician Unavailabl e JENNY, Alfonso MOSELEY Attending Clinician Unavailable Jennyshannon MITTAL, Alfonso Moseley Attending Clinician [phone] RITCHIE WARREN Attending Clinician Unavailable Briana ELIZONDO, Ritchie Stoner Attending Clinician [phone] Rk CAMPOS, Shy Stoner Attending Clinician [phone] Reji ELIZONDO, Halima Hummel Attending Clinician [phone] Lucho ELIZONDO, Jen Olivia Attending Clinician [phone] Roxi ELIZONDO, Parrish Reyez Attending Clinici an ROXI, PARRISH CR Attending Clinician Unavaila LORENZA Mariscal Attending Clinician Unavailable Alcon ELIZONDO, Sav Attending Clinician [phone] Essence ELIZONDO, Lorenza Attending Clinician [phone] Maria Teresa Nicole LVN Attending Clinician + [phone] CHANTEL BOJORQUEZ Attending Clinician CHANTEL Kelly Attending Clinician Jack Ibrahim MD, Brandyn Otoole Attending Clinician [phone] SELINA MARTINES Attending Clinician Unavailable Sapna Vargas DO Attending Clinician + [phone] Tyrel ELIZONDO, Glory Katz Attending Clinician + Selina Martines MD Attending Clinician [phone] Vaccine, Powell Pedi Attending Clinician U chelsi Pak MD, Jose Attending Clinician [phone] JOSE PAK Attending Clinician Unavailable NICHELLE VIRK Attending Clinician Unavaila Nichelle Lakhani Attending Clinician [phone] Doctor Unassigned, Bicknell Attending Clinician U chelsi Nava RN, Miky Attending Clinician Unavailab monroe BRONSONPFabrice Attending Clinician [phone] Deo BRONSONP, Lydia Attending Clinician [phone] Unknown, Attending Attending Clinician Unavailab le UNKNOWN, ATTENDING Attending Clinician Unavailab Anali Berg S Attending Clinician Yehuda Arcos MD Attending Clinician PANKAJ OBREGON Admitting Clinician Un available CARA BURGESS Admitting Clinician Unavailab ADAM Cabrera Admitting Clinician Unavailable MARIAH ALDRIDGE Admitting Clinician Unavailable CONNIE DAVEY Admitting Clinician UnavailAlfonso Oh Admitting Clinician Unavailable RITCHIE WARREN Admitting Clinician Unavailable JEN GELLER Admitting Clinician Unavaila LORENZA Mariscal Admitting Clinician Unavailable Lorenza Lowry MD Admitting Clinician [phone] BRANDYN IBRAHIM Admitting Clinician Unavailable Brandyn Ibrahim MD Admitting Clinician [phone] GLORY ESTEVES Admitting Clinician Unav ailable NICHELLE VIRK Admitting Clinician Unavaila yaya Payers Payer Name Policy Type Policy Number Effective Date Expirati on Date Source [facility] [id number] 2023 00:00:00 [facility] [id number] 2023 00:00:00 [facility] [place] [employer] 9 [id number] 2023 00:00:00 [facility] [id number] 2023 00:00:00 MEDICAID PENDING PENDING 2022 00:00:00 [...] leg weakness Disease Active 2022-07 00:00: 00 [facility] Bilateral leg weakness Bilateral leg weakness Disease Active 2022-07 00:00: 00 [facility] Pneumonia Pneumonia Disease Active 2022-07 00:00: 00 [facility] Cavitary lesion of lung Cavitary lesion of lung Disease Active 2022-07 00:00: 00 [facility] Cervical myelopathy Cervical myelopathy Disease Recurre nce 2022-07 00:00: 00 [facility] Cervical disc disorder with myelopathy , high cervical region Cervical disc disorder with myelopathy , high cervical region Disease Active 2023-1 1-09 00:00: 00 [facility] Cord compressio n Cord compressio n Disease Recurre nce 9- 00:00: 00 [facility] Cauda equina compressio n Cauda equina compressio n Disease Active 9-11 00:00: 00 [facility] Seizure Seizure Disease Recurre nce 1-14 00:00: 00 [facility] Cardiomyop athy Cardiomyop athy Disease Active 08-01 00:00: 00 [facility] NSVT (nonsustai keisha ventricula r tachycardi a) NSVT (nonsustai keisha ventricula r tachycardi a) Disease Active 08-01 00:00: 00 [facility] Chest pain, unspecifie d type Chest pain, unspecifie d type Disease Active 07-31 00:00: 00 [facility] Elevated brain natriureti c peptide (BNP) level Elevated brain natriureti c peptide (BNP) level Disease Active 07-31 00:00: 00 [facility] Coronary artery disease involving [place] coronary artery of [place] heart without angina pectoris Coronary artery disease involving [place] coronary artery of [place] heart without angina pectoris Disease Active 07-31 00:00: 00 [facility] Snores Snores Disease Active 07-31 00:00: 00 [facility] Cigarette smoker Cigarette smoker Disease Active 07-31 00:00: 00 [facility] Primary hypertensi on Primary hypertensi on Disease Active 07-31 00:00: 00 [facility] Other hyperlipid emia Other hyperlipid emia Disease Active 07-31 00:00: 00 [facility] Coronary artery disease involving [place] coronary artery of [place] heart without angina pectoris Coronary artery disease involving [place] coronary artery of [place] heart without angina pectoris Disease Active 07-31 00:00: 00 [facility] Chronic bilateral low back pain with bilateral sciatica Chronic bilateral low back pain with bilateral sciatica Disease Active 2021-07 0-17 00:00: 00 [facility] 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 Disease Active 04-15 00:00: 00 [facility] Neuroforam inal stenosis of cervical spine Neuroforam inal stenosis of cervical spine Disease Active 04-15 00:00: 00 [facility] Stroke-lik e symptoms Stroke-lik e symptoms Disease Active 04-13 00:00: 00 [facility] Bipolar disorder, in partial remission, most recent episode manic Bipolar disorder, in partial remission, most recent episode manic Disease Active 09-27 00:00: 00 [facility] Neuroforam inal stenosis of lumbar spine Neuroforam inal stenosis of lumbar spine Disease Active 09-27 00:00: 00 [facility] Bilateral acute otitis media, recurrence not specified, unspecifie d otitis media type Bilateral acute otitis media, recurrence not specified, unspecifie d otitis media type Disease Active 09-27 00:00: 00 [facility] Lumbar spinal stenosis Lumbar spinal stenosis Disease Active 09-27 00:00: 00 [facility] Right-side d low back pain with sciatica, sciatica laterality unspecifie d Right-side d low back pain with sciatica, sciatica laterality unspecifie d Disease Active 09-27 00:00: 00 [facility] Generalize d anxiety disorder Generalize d anxiety disorder Disease Active 09-27 00:00: 00 [facility] Agoraphobi a Agoraphobi a Disease Active 09-27 00:00: 00 [facility] Bipolar disorder, in partial remission, most recent episode manic Bipolar disorder, in partial remission, most recent episode manic Disease Active 09-27 00:00: 00 [facility] Obsessive compulsive disorder Obsessive compulsive disorder Disease Active 09-27 00:00: 00 [facility] Breast mass, left Breast mass, left Disease Active 09-17 00:00: 00 [facility] Anxiety Anxiety Disease Active 09-17 00:00: 00 [facility] Lower back pain Lower back pain Disease Active 09-17 00:00: 00 [facility] High blood pressure High blood pressure Disease Active 09-17 00:00: 00 [facility] COPD (chronic obstructiv e pulmonary disease) COPD (chronic obstructiv e pulmonary disease) Disease Active 09-17 00:00: 00 [facility] Obesity Obesity Disease Active 09-17 00:00: 00 [facility] Allergies, Adverse Reactions, Alerts Allergy Name Allergy Type Status Severity Reaction(s) Onset Date Inactive Date Treating Clinician Comments Source FLUOXETI NE Allergy Active 03-29 00:00: 00 [facility] GREEN TEA Allergy Active High Other 03-29 00:00: 00 [facility] LEVETIRA CETAM Allergy Active High N\\T\\V 03-29 00:00: 00 [facility] Green Tea Propensi ty to adverse reaction s Active 03-29 00:00: 00 Seizure like activity [facility] Levetira cetam Propensi ty to adverse reaction s Active Nausea And Vomiting 03-29 00:00: 00 Intensifi es seizure [facility] Fluoxeti ne Propensi ty to adverse reaction s Active 03-29 00:00: 00 [facility] Green Tea Drug Allergy Active Other (See Comments) 03-29 00:00: 00 Seizure like activity [facility] Levetira cetam Drug Allergy Active Nausea And Vomiting 03-29 00:00: 00 Intensifi es seizure [facility] Levetira cetam Propensi ty to adverse reaction s Active Other 11-17 00:00: 00 Intensifi es seizure Makes seizures worse Makes seizures worse Intensifi es seizure Cynthia Seybold - Externa l LEVETIRA CETAM DRUG INGREDI Active Other-Cmnt 11-17 00:00: 00 [facility] Levetira cetam Propensi ty to adverse reaction s Active Other - See comments 11-17 00:00: 00 Makes seizures worse [facility] Green Tea Propensi ty to adverse reaction s Active 08-02 00:00: 00 [facility] GREEN TEA Allergy Active 08-02 00:00: 00 [facility] FLUOXETI NE Allergy Active Med Rash 08-02 00:00: 00 [facility] Fluoxeti ne Propensi ty to adverse reaction s Active Rash 08-02 00:00: 00 [facility] Fluoxeti ne Propensi ty to adverse reaction s Active Unknown - See comments 03-25 00:00: 00 [facility] FLUOXETI NE DRUG INGREDI Active Unknown-Cmnt 03-25 00:00: 00 [facility] Diclofen ac Propensi ty to adverse reaction s Active Anxiety 11-20 00:00: 00 Cynthia Macdonaldybold - Externa l DICLOFEN AC DRUG INGREDI Active HYPERTENSION 11-20 00:00: 00 [facility] Green Tea Propensi ty to adverse reaction s Active Anxiety 08-10 00:00: 00 Seizure like activity Seizures Seizures Seizure like activity Cynthia Bedoyaold - Externa l GREEN TEA DRUG INGREDI Active Med Other-Cmnt 08-10 00:00: 00 [facility] Green Tea Propensi ty to adverse reaction s to drug Active Other - See comments 08-10 00:00: 00 Seizures [facility] FLUOXETI NE HCL DRUG INGREDI Active Hives 03-19 00:00: 00 [facility] Fluoxeti ne Hcl Propensi ty to adverse reaction s Active Hives 03-19 00:00: 00 [facility] Family History Family Member Diagnosis Comments Start Date Stop Date Sourc e Natural mother Alcohol abuse [facility] Natural mother Stroke [facility] Natural mother Alcohol abuse [facility] Natural mother Cancer [facility] Natural mother Diabetes [facility] Natural mother Heart disease [facility] Natural mother Hyperlipidemia [facility] Natural mother Kidney disease [facility] Natural mother Stroke [facility] Paternal uncle Diabetes [facility] Social History Social Habit Start Date Stop Date Quantity Comments Source History SDOH Social Connections Get Together [facility] History SDOH Social Connections [facility] History SDOH Social Connections Membership [facility] History SDOH Social Connections Meetings [facility] History of tobacco use Cigarette Smoker Cynthia boyd - External History SDOH Alcohol Frequency [facility] History SDOH Alcohol Std Drinks [facility] History SDOH Alcohol Binge [facility] History SDOH Housing Homeless Last Year [facility] Sexual orientation [facility] Tobacco use and exposure 2023-09-30 00:00:00 2023-09-30 00:00:00 Smokeless tobacco non-user Cynthia Garcia - External Education - What is the highest level of school you have completed or the highest degree you have received? 2023-09-30 00:00:00 2023-09-30 00:00:00 GED or equivalent Cynthia Garcia - External History of Social function 2023-08-03 00:00:00 2023-08-03 00:00:00 [facility] Alcohol intake 2023-06-02 00:00:00 2023-06-02 00:00:00 Current drinker of alcohol (finding) [facility] Exposure to SARS-CoV-2 (event) 2023-05-18 00:00:00 2023-05-28 07:28:00 Not sure [facility] History SDOH Housing Unable to Pay - In the last 12 months, was there a time when you were not able to pay the mortgage or rent on time? 2023-05-26 00:00:00 2023-05-26 00:00:00 Yes [facility] Cigarettes smoked current (pack per day) - Reported 2023-05-26 00:00:00 2023-05-26 00:00:00 [facility] Cigarette pack-years 2023-05-26 00:00:00 2023-05-26 00:00:00 [facility] History SDOH Housing Places Lived 2023-03-30 00:00:00 2023-03-30 00:00:00 1 [facility] Alcohol Comment 2023-03-29 00:00:00 2023-03-29 00:00:00 2x a week [facility] History SDOH Social Connections Phone 2022-08-01 00:00:00 2022-08-01 00:00:[address] [facility] History SDOH Social Connections Living 2022-08-01 00:00:00 2022-08-01 00:00:[address] [facility] History SDOH Physical Activity DPW 2022-08-01 00:00:00 2022-08-01 00:00:[address] [facility] History SDOH Physical Activity MPS 2022-08-01 00:00:00 2022-08-01 00:00:[address] [facility] History SDOH Financial 2022-08-01 00:00:00 2022-08-01 00:00:[address] [facility] History SDOH Food Worry 2022-08-01 00:00:00 2022-08-01 00:00:[address] [facility] History SDOH Food Scarcity 2022-08-01 00:00:00 2022-08-01 00:00:[address] [facility] History SDOH Transport Med 2022-08-01 00:00:00 2022-08-01 00:00:[address] [facility] History SDOH Transport Non-Med 2022-08-01 00:00:00 2022-08-01 00:00:[address] [facility] Sex Assigned At 1970 00:00:00 1970 00:00:00 [facility] Smoking Status Start Date Stop Date Source Smokes tobacco daily 2023-09-30 00:00:00 Cynthia Garcia - Wilmer Never smoked tobacco Cynthia Garcia - External Ex-smoker 2023-05-26 00:00:00 2023-05-26 00:00:00 [facility] Medications Ordered Medication Name Filled [...] 14:27: 32 09-29 00:00 :00 No 200mg [id number] 3D Take 1 tablet (200 mg total) by mouth every 8 hours as needed for pain. Cynthia gonzalez Fluticasone -Umeclidin- Vilant (Trelegy Ellipta) 100-62.5-25 MCG/ACT inhalation AEROSOL POWDER, BREATH ACTIVATED 09-29 00:00: 00 Yes [id number] 1{puff} Inhale 1 puff into the lungs daily. Cynthia gonzalez Carvedilol 12.5 MG oral Tablet 09-29 00:00: 00 Yes [id number] 12.5mg Take 1 tablet (12.5 mg total) by mouth in the morning and 1 tablet (12.5 mg total) in the evening. Take with meals. Cynthia gonzalez Duloxetine HCl [address] Particles 09-29 00:00: 00 Yes [id number] 20mg Take 1 capsule (20 mg total) by mouth daily. Cynthia gonzalez Acetaminoph en-Codeine (TYLENOL/CO DEINE #3) 300-30 MG oral Tablet 09-29 00:00: 00 Yes [id number] 1{tbl} Q.25D Take 1 tablet by mouth every 6 hours as needed for pain. Cynthia gonzalez Clonazepam 1 MG oral Tablet 09-29 00:00: 00 Yes [id number] 1mg QD Take 1 tablet (1 mg [...] MG oral Tablet 09-11 00:00: 00 Yes [id number] 15mg QD Take 1 tablet (15 mg total) by mouth nightly as needed. Cynthia gonzalez Acetaminoph en-Codeine (TYLENOL/CO DEINE #3) 300-30 MG oral Tablet 09-11 00:00: 00 09-29 00:00 :00 No [id number] 1{tbl} Q.25D Take 1 tablet by mouth every 6 hours as needed for pain. Cynthia gonzalez DULoxetine (CYMBALTA) 60 MG capsule 09-09 00:00: 00 10-08 23:59 :00 No 60mg QD Take 1 capsule (60 mg total) by mouth daily for 30 days. [facility] varenicline (CHANTIX) 1 mg tablet 09-08 10:51: 03 Yes 1mg Q.5D Take 1 tablet (1 mg total) by mouth 2 (two) times daily Give with meals and with a full glass of water.. [facility] atorvastati n (LIPITOR) 20 MG tablet 09-08 10:51: 03 Yes 20mg QD Take 1 tablet (20 mg total) by mouth daily. [facility] Cyanocobala min (Vitamin B-12) 1000 MCG oral Tablet 09-08 00:00: 00 10-08 04:59 :00 Yes 1000ug Take 1 tablet (1,000 mcg total) by mouth daily. Cynthia gonzalez lidocaine (LIDODERM) 4 % patch 09-08 00:00: 00 10-07 23:59 :00 No 3{patch } Q24H Place 3 patches onto the skin daily for 30 days. [facility] metoprolol succinate (TOPROL-XL) 25 MG 24 hr tablet 09-07 16:47: 05 09-07 00:00 :00 No 25mg QD Take 1 tablet (25 mg total) by mouth daily. [facility] albuterol HFA (VENTOLIN HFA) 90 mcg/actuati on inhaler 09-07 16:47: 05 09-07 00:00 :00 No 1{puff} Inhale 1 puff by mouth via inhaler every 6 (six) hours as needed for Wheezing. [facility] fluticasone -umeclidin- vilanter (Trelegy Ellipta) 200-62.5-25 mcg DsDv 09-07 16:47: 05 09-07 00:00 :00 No QD Inhale by mouth via inhaler daily. [facility] Albuterol HFA 108 (90 Base) MCG/ACT [...] total) by mouth daily for 30 days. [facility] polyethylen e glycol (GLYCOLAX) 17 gram packet 09-07 00:00: 00 10-06 23:59 :00 No 17g Q.5D Take 17 g by mouth 2 (two) times daily for 30 days. [facility] gabapentin (NEURONTIN) 400 MG capsule 09-07 00:00: 00 10-06 23:59 :00 No 400mg [id number] 3D Take 1 capsule (400 mg total) by mouth 3 (three) times daily for 30 days. [facility] furosemide (LASIX) 20 MG tablet 09-07 00:00: 00 10-06 23:59 :00 No 20mg QD Take 1 tablet (20 mg total) by mouth daily for 30 days. [facility] fluticasone -umeclidin- vilanter (Trelegy Ellipta) 200-62.5-25 mcg DsDv - 00:00: 00 10-06 23:59 :00 No 1{inhal ation} QD Inhale 1 Inhalation by mouth via inhaler daily for 30 days. [facility] metoprolol succinate (TOPROL-XL) 25 MG 24 hr tablet 09-07 00:00: 00 10-06 23:59 :00 No 25mg QD Take 1 tablet (25 mg total) by mouth daily for 30 days. [facility] lacosamide (VIMPAT) 100 mg in NaCl 0.9% (NS) 50 mL piggyback 08-12 21:15: 00 08-12 21:23 :00 No 100mg 100 mg, IV Piggyback, ONCE, 1 dose, On Thu08/12/23 at 1515, Administer over 30 Minutes, 50 mL
Facu lty member approving Restricted medication : BRIAN BRYAN [facility] Dicyclomine HCl 20 MG oral Tablet [...] total) by mouth daily for 5 days. [facility] varenicline (CHANTIX) 1 mg tablet 2022-07 19:45: 32 Yes 1mg Q.5D Take 1 tablet (1 mg total) by mouth 2 (two) times daily Give with meals and with a full glass of water.. [facility] atorvastati n (LIPITOR) 20 MG tablet 2022-07 19:45: 32 Yes 20mg QD Take 1 tablet (20 mg total) by mouth daily. [facility] metoprolol succinate (TOPROL-XL) 25 MG 24 hr tablet 2022-07 19:45: 32 09-07 00:00 :00 No 25mg QD Take 1 tablet (25 mg total) by mouth daily. [facility] albuterol HFA (VENTOLIN HFA) 90 mcg/actuati on inhaler 2022-07 19:45: 09-07 00:00 :00 No 1{puff} Inhale 1 puff by mouth via inhaler every 6 (six) hours as needed for Wheezing. [facility] fluticasone -umeclidin- vilanter (Trelegy Ellipta) 200-62.5-25 mcg DsDv 2022-07 19:45: 32 09-07 00:00 :00 No QD Inhale by mouth via inhaler daily. [facility] acetaminoph en-codeine (TYLENOL #3) 300-30 mg per tablet 2022-07 18:02: 00 06-16 00:00 :00 No 1{tbl} Take 1 tablet by mouth every 4 (four) hours as needed for Pain. [facility] DULoxetine (CYMBALTA) 30 MG capsule 2022-07 00:00: 00 09-08 00:00 :00 No 30mg QD Take 1 capsule (30 mg total) by mouth daily for 90 days. [facility] metroNIDAZO LE (FLAGYL) 500 MG tablet 2022-07 00:00: 00 07-04 23:59 :00 No 500mg Take 1 tablet (500 mg total) by mouth every 8 (eight) hours for 18 days. [facility] ciprofloxac in HCl (CIPRO) 500 MG tablet 2022-07 00:00: 00 07-04 23:59 :00 No 500mg Q.5D Take 1 tablet (500 mg total) by mouth 2 (two) times daily for 18 days. [facility] cyclobenzap rine (FLEXERIL) 10 MG tablet 2022-07 00:00: 00 06-26 23:59 :00 No 10mg [id number] 3D Take 1 tablet (10 mg total) by mouth 3 (three) times daily for 10 days. [facility] oxyCODONE (OXY-IR) 10 mg tablet 2022-07 00:00: 00 06-26 23:59 :00 No 10mg Take 1 tablet (10 mg total) by mouth every 8 (eight) hours as needed for up to 10 days. Max Daily Amount: 30 mg [facility] nystatin (MYCOSTATIN ) 100,000 unit/mL suspension 2022-07 00:00: 00 06-21 23:59 :00 No [id number] Q.25D Take 5 mLs (500,000 Units total) by mouth 4 (four) times daily for 5 days. [facility] dexAMETHaso ne (DECADRON) 2 MG tablet 2022-07 00:00: 00 06-08 23:59 :00 No 1mg Take 0.5 tablets (1 mg total) by mouth 2 (two) times daily with breakfast and dinner for 2 days. [facility] dexAMETHaso ne (DECADRON) 2 MG tablet 2022-07 00:00: 00 06-06 23:59 :00 No 2mg Take 1 tablet (2 mg total) by mouth 2 (two) times daily with breakfast and dinner for 1 day. [facility] metoprolol succinate (TOPROL-XL) 25 MG 24 hr tablet 2022-07 17:44: 21 Yes 25mg QD Take 1 tablet (25 mg total) by mouth daily. [facility] varenicline (CHANTIX) 1 mg tablet 2022-07 17:44: 21 Yes 1mg Q.5D Take 1 tablet (1 mg total) by mouth 2 (two) times daily Give with meals and with a full glass of water.. [facility] albuterol HFA (VENTOLIN HFA) 90 mcg/actuati on inhaler 2022-07 17:44: 21 Yes 1{puff} Inhale 1 puff by mouth via inhaler every 6 (six) hours as needed for Wheezing. [facility] fluticasone -umeclidin- vilanter (Trelegy Ellipta) 200-62.5-25 mcg DsDv 2022-07 17:44: 21 Yes QD Inhale by mouth via inhaler daily. [facility] atorvastati n (LIPITOR) 20 MG tablet 2022-07 17:44: 21 Yes 20mg QD Take 1 tablet (20 mg total) by mouth daily. [facility] acetaminoph en-codeine (TYLENOL #3) 300-30 mg per tablet 2022-07 17:44: 21 Yes 1{tbl} Take 1 tablet by mouth every 4 (four) hours as needed for Pain. [facility] Naloxone (NARCAN) 4 MG/0.1ML nasal Liquid 2022-07 00:00: 00 Yes 4mg 0.1 mL (4 mg total) as needed. Cynthia gonzalez senna (SENOKOT) 8.6 mg tablet 2022-07 00:00: 00 06-18 23:59 :00 No 17.2mg Q.5D Take 2 tablets (17.2 mg total) by mouth 2 (two) times daily for 14 days. [facility] cyclobenzap rine (FLEXERIL) 10 MG tablet 2022-07 00:00: 00 06-16 00:00 :00 No 10mg [id number] 3D Take 1 tablet (10 mg total) by mouth 3 (three) times daily for 10 days. [facility] methocarbam oL (ROBAXIN) 500 MG tablet 2022-07 00:00: 00 06-16 00:00 :00 No 500mg Q.25D Take 1 tablet (500 mg total) by mouth 4 (four) times daily for 10 days. [facility] lactulose (CHRONULAC) 20 gram/30 mL solution 2022-07 00:00: 00 06-11 23:59 :00 No 20g [id number] 3D Take 30 mLs (20 g total) by mouth 3 (three) times daily for 7 days. [facility] ondansetron (ZOFRAN-ODT ) 4 MG disintegrat ing tablet 2022-07 00:00: 00 06-11 23:59 :00 No 4mg Take 1 tablet (4 mg total) by mouth every 6 (six) hours as needed for up to 7 days. [facility] metoprolol succinate (TOPROL-XL) 25 MG 24 hr tablet 2022-07 15:23: 22 Yes 25mg QD Take 1 tablet (25 mg total) by mouth daily. [facility] varenicline (CHANTIX) 1 mg tablet 2022-07 15:23: 22 Yes 1mg Q.5D Take 1 tablet (1 mg total) by mouth 2 (two) times daily Give with meals and with a full glass of water.. [facility] albuterol HFA (VENTOLIN HFA) 90 mcg/actuati on inhaler 2022-07 15:23: 22 Yes 1{puff} Inhale 1 puff by mouth via inhaler every 6 (six) hours as needed for Wheezing. [facility] fluticasone -umeclidin- vilanter (Trelegy Ellipta) 200-62.5-25 mcg DsDv 2022-07 15:23: 22 Yes QD Inhale by mouth via inhaler daily. [facility] atorvastati n (LIPITOR) 20 MG tablet 2022-07 15:23: 22 Yes 20mg QD Take 1 tablet (20 mg total) by mouth daily. [facility] acetaminoph en-codeine (TYLENOL #3) 300-30 mg per tablet 2022-07 15:23: 22 Yes 1{tbl} Take 1 tablet by mouth every 4 (four) hours as needed for Pain. [facility] acetaminoph en-codeine (TYLENOL #3) 300-30 mg per tablet 2022-07 09:42: 02 Yes 1{tbl} Take 1 tablet by mouth every 4 (four) hours as needed for Pain. Max Daily Amount: 6 tablets [facility] varenicline (CHANTIX) 1 mg tablet 2022-07 09:40: 04 Yes 1mg Q.5D Take 1 tablet (1 mg total) by mouth 2 (two) times daily Give with meals and with a full glass of water.. [facility] albuterol HFA (VENTOLIN HFA) 90 mcg/actuati on inhaler 2022-07 09:40: 04 Yes 1{puff} Inhale 1 puff by mouth via inhaler every 6 (six) hours as needed for Wheezing. [facility] fluticasone -umeclidin- vilanter (Trelegy Ellipta) 200-62.5-25 mcg DsDv 2022-07 09:40: 04 Yes QD Inhale by mouth via inhaler daily. [facility] atorvastati n (LIPITOR) 20 MG tablet 2022-07 09:40: 04 Yes 20mg QD Take 1 tablet (20 mg total) by mouth daily. [facility] metoprolol succinate (TOPROL-XL) 25 MG 24 hr tablet 2022-07 09:13: 28 Yes 25mg QD Take 1 tablet (25 mg total) by mouth daily. [facility] Atorvastati n Calcium 20 MG oral Tablet 2022-07 00:00: 00 Yes 20mg Take 1 tablet (20 mg total) by mouth daily. Cynthia gonzalez Metoprolol Succinate 25 MG oral TABLET SR 24 HR 2022-07- 00:00: 00 Yes 25mg Take 1 tablet (25 mg total) by mouth daily. Cynthia gonzalez Nitroglycer in 0.4 MG sublingual SL Tab 2022-07 0 00:00: 00 Yes .4mg 1 tablet (0.4 mg total). Cynthia gonzalez Furosemide 40 MG oral Tablet 2022-07 0 00:00: 00 Yes 40mg 1 tablet (40 mg total). Cynthia gonzalez Aspirin 81 MG oral Chewable Tablet 2022-07 0-16 00:00: 00 Yes 81mg 1 tablet (81 mg total). Cynthia Santoyo Externa lisa Fluticasone -Umeclidin- Vilant (Trelegy Ellipta) 100-62.5-25 MCG/ACT inhalation AEROSOL POWDER, BREATH ACTIVATED 2022-07 0-16 00:00: 00 09-29 00:00 :00 No 1{puff} [...] tablet (20 mg total) by mouth daily. [facility] aspirin 81 MG EC tablet 04-03 00:00: 00 07-02 23:59 :00 No 81mg QD Take 1 tablet (81 mg total) by mouth daily for 90 days. [facility] divalproex (DEPAKOTE) 500 MG EC tablet 04-03 00:00: 00 07-02 23:59 :00 No 500mg Q.5D Take 1 tablet (500 mg total) by mouth 2 (two) times daily for 90 days. [facility] lisinopriL (PRINIVIL,Z ESTRIL) 5 MG tablet 04-03 00:00: 00 05-28 00:00 :00 No 5mg QD Take 1 tablet (5 mg total) by mouth daily. [facility] clonazePAM (KlonoPIN) 0.5 MG tablet 04-03 00:00: 00 05-03 23:59 :00 No .25mg Take 0.5 tablets (0.25 mg total) by mouth 2 (two) times daily as needed for Anxiety for up to 30 days. Max Daily Amount: 0.5 mg [facility] HYDROcodone -acetaminop hen (NORCO 10-325) 10-325 mg per tablet 04-03 00:00: 04-13 23:59 :00 No 1{tbl} Take 1 tablet by mouth every 6 (six) hours as needed for up to 10 days. Max Daily Amount: 4 tablets [facility] methocarbam oL (ROBAXIN) 500 MG tablet 04-03 00:00: 00 04-13 23:59 :00 No 500mg Q.25D Take 1 tablet (500 mg total) by mouth 4 (four) times daily for 10 days. [facility] gabapentin (NEURONTIN) 300 MG capsule 04-02 00:00: 00 04-03 00:00 :00 No 300mg [id number] 3D Take 1 capsule (300 mg total) by mouth 3 (three) times daily for 90 days. [facility] divalproex (DEPAKOTE) 500 MG EC tablet 04-02 00:00: 00 04-03 00:00 :00 No 500mg Q.5D Take 1 tablet (500 mg total) by mouth 2 (two) times daily for 90 days. [facility] clonazePAM (KlonoPIN) 0.5 MG tablet 04-02 00:00: 00 04-03 00:00 :00 No .25mg Take 0.5 tablets (0.25 mg total) by mouth 2 (two) times daily as needed for Anxiety for up to 30 days. Max Daily Amount: 0.5 mg [facility] HYDROcodone -acetaminop hen (NORCO 10-325) 10-325 mg per tablet 04-02 00:00: 00 04-03 00:00 :00 No 1{tbl} Take 1 tablet by mouth every 6 (six) hours as needed for up to 10 days. Max Daily Amount: 4 tablets [facility] methocarbam oL (ROBAXIN) 500 MG tablet 04-02 00:00: 00 04-03 00:00 :00 No 500mg Q.25D Take 1 tablet (500 mg total) by mouth 4 (four) times daily for 10 days. [facility] Metronidazo le 500 MG oral Tablet [...] 00:00: 00 Yes 250mg 250 mg. Cynthia goznalez lacosamide (VIMPAT) 200 mg in NaCl 0.9% (NS) 50 mL piggyback 12-11 19:45: 00 12-11 19:57 :00 No 200mg 200 mg, IV Piggyback, ONCE, 1 dose, On Thu12/11/22 at 1445, Administer over 30 Minutes, 50 mL
Facu lty member approving Restricted medication : Alfonso ALVARADO [facility] ketorolac (TORADOL) injection 15 mg 12-11 18:15: 00 12-11 17:25 :00 No 15mg 15 mg, Slow IV Push, ONCE, 1 dose, On Thu12/11/22 at 1315, MICHAEL [facility] iopamidol (ISOVUE 370-500 mL) injection 80 mL 12-11 16:30: 00 12-11 16:27 :00 No [id number] 80mL 80 mL, Intravenou s, ONCE, 1 dose, On Thu12/11/22 at 1130, Routine [facility] nitroglycer in (NITROL) 2 % ointment 0.5 Inch 12-11 15:30: 00 12-11 14:31 :00 No .5[in_u s] 0.5 Inch, Transderma l (Apply To Skin), ONCE, 1 dose, On Thu12/11/22 at 1030, [facility] aspirin chewable tablet 324 mg 12-11 15:30: 00 12-11 14:30 :00 No 324mg 324 mg, Oral, ONCE, 1 dose, On Thu12/11/22 at 1030, Routine [facility] ondansetron (ZOFRAN (PF)) injection 4 mg 12-11 15:30: 00 12-11 14:29 :00 No 4mg 4 mg, Slow IV Push, ONCE, 1 dose, On Thu12/11/22 at 1030, [facility] LORazepam (ATIVAN) injection 1 mg 12-11 15:00: 00 12-11 14:57 :00 No 1mg 1 mg, Slow IV Push, ONCE, 1 dose, On Thu12/11/22 at 1000, [facility] Lacosamide (VIMPAT) 100 mg tablet 12-11 00:00: 00 Yes [id number] 100mg Take 1 tablet by mouth in the morning and 1 tablet in the evening. [facility] acetaminoph en-codeine (TYLENOL #3) 300-30 mg tablet 1 tablet 11-18 05:30: 00 11-18 05:30 :00 No 1{tbl} 1 tablet, Oral, ONCE, 1 dose, On Thu11/18/22 at 0030, [facility] methocarbam oL (ROBAXIN) tablet 1,000 mg 11-18 05:30: 00 11-18 05:30 :00 No 1000mg 1,000 mg, Oral, ONCE, 1 dose, On Thu11/18/22 at 0030, [facility] ondansetron (ZOFRAN (PF)) injection 4 mg 11-18 04:45: 00 11-18 03:38 :00 No 4mg 4 mg, Slow IV Push, ONCE, 1 dose, On Thu11/17/22 at 2345, [facility] morpHINE (4 mg/mL) injection 4 mg 11-18 03:45: 00 11-18 03:38 :00 No 4mg 4 mg, Slow IV Push, ONCE, 1 dose, On Thu11/17/22 at 2245, Routine [facility] methocarbam oL (ROBAXIN) injection 1,000 mg 11-18 00:30: 00 11-17 23:47 :00 No 1000mg 1,000 mg, Intravenou s, ONCE, 1 dose, On Thu11/17/22 at 1930, MICHAEL [facility] methocarbam oL 500 mg tablet 11-18 00:00: 00 Yes [id number] 1000mg Take 2 tablets by mouth 4 (four) times daily as needed for Pain (scale 7-10). [facility] acetaminoph en-codeine 300-60 mg tablet 11-18 00:00: 00 11-26 04:59 :00 No [id number] 1{tbl} Take 1 tablet by mouth every 6 (six) hours as needed for Pain for up to 7 days. Indication s: acute pain [facility] ketorolac (TORADOL) injection 15 mg 11-18 00:00: 00 11-17 23:08 :00 No 15mg 15 mg, Slow IV Push, ONCE, 1 dose, On Thu11/17/22 at 1900, Routine [facility] morpHINE (4 mg/mL) injection 4 mg 11-17 23:45: 00 11-17 23:49 :00 No 4mg 4 mg, Slow IV Push, ONCE, 1 dose, On Thu11/17/22 at 1845, Routine [facility] ondansetron (ZOFRAN (PF)) injection 4 mg 11-17 23:15: 00 11-17 23:06 :00 No 4mg 4 mg, Slow IV Push, ONCE, 1 dose, On Thu11/17/22 at 1815, MICHAEL [facility] lisinopriL (PRINIVIL,Z ESTRIL) tablet 10 mg -14 15:00: 00 Yes 10mg 10 mg, Oral, DAILY, First dose on Thu08/02/22 at 0900, Until Discontinu ed, Routine [facility] predniSONE (DELTASONE) tablet 40 mg 08-02 15:00: 00 08-07 14:59 :00 No 40mg 40 mg, Oral, DAILY, 5 doses, First dose on Thu08/02/22 at 0900, Last dose on Thu08/06/22 at 0900, [facility]ine [facility]INE (2 mg/mL) injection 2 mg 08-02 03:29: 15 Yes 2mg 2 mg, Slow IV Push, Q4HPRN, Starting on Thu08/01/22 at 2129, Until Discontinu ed, Routine, Pain (scale 7-10) [facility] levETIRAcet am (KEPPRA) in NACL (ISO-OS) 1,000 mg/100 mL RTU 08-02 00:00: 00 Yes 1000mg 1,000 mg, IV Piggyback, Q12H, First dose on Thu08/01/22 at 1800, Until Discontinu ed, Administer over 15 Minutes, 100 mL [facility] MULTIVITAMI N ORAL 08-01 23:49: 34 Yes 1{tbl} Take 1 Tab by mouth daily. [facility] omega-3 fatty acids-vitam in E (FISH OIL) 1,000 mg capsule 08-01 23:49: 34 Yes 1g Take 1 g by mouth daily. [facility] loratadine (CLARITIN LIQUI-GEL) 10 mg capsule 08-01 23:49: 34 Yes Take by mouth daily. [facility] ondansetron 4 mg tablet 08-01 23:49: 34 Yes 4mg Take 4 mg by mouth every 8 (eight) hours as needed. [facility] pantoprazol e 40 mg EC tablet 08-01 23:49: 34 Yes 40mg Take 40 mg by mouth daily. [facility] omega-3 fatty acids-vitam in E (FISH OIL) 1,000 mg capsule 08-01 23:49: 34 Yes 1g Take 1 g by mouth daily. [facility] benzonatate (TESSALON PERLES) capsule 100 mg 08-01 20:00: 00 Yes 100mg 100 mg, Oral, Q8H, First dose on Thu08/01/22 at 1400, Until Discontinu ed, Routine [facility] ipratropium -albuteroL (DUONEB) 0.5 mg-3 mg(2.5 mg base)/3 mL nebulizer solution 3 mL 08-01 18:00: 00 Yes 3mL 3 mL, Inhalation , QID, First dose on Thu08/01/22 at 1200, Until Discontinu ed, Routine [facility] ipratropium -albuteroL (DUONEB) 0.5 mg-3 mg(2.5 mg base)/3 mL nebulizer solution 3 mL 08-01 17:07: 07 Yes 3mL 3 mL, Inhalation , QIDPRN, Starting on Thu08/01/22 at 1107, Until Discontinu ed, MICHAEL, Wheezing, Shortness of Breath [facility] sulfur hexafluorid e microsphr (LUMASON) injection 5 mL 08-01 17:00: 00 08-01 17:00 :00 No [id number] 5mL 5 mL, Intravenou s, ONCE, 1 dose, On Thu08/01/22 at 1100, Routine
member of technical staff approving Restricted medication : WOODY MONTEZ [facility] pantoprazol e (PROTONIX) EC tablet 40 mg 08-01 15:00: 00 Yes 40mg 40 mg, Oral, DAILY, First dose on Thu08/01/22 at 0900, Until Discontinu ed, Routine [facility] aspirin chewable tablet 81 mg 08-01 15:00: 00 Yes 81mg 81 mg, Oral, DAILY, First dose on Thu08/01/22 at 0900, Until Discontinu ed, Routine [facility] amLODIPine (NORVASC) tablet 10 mg 08-01 15:00: 00 Yes 10mg 10 mg, Oral, DAILY, First dose on Thu08/01/22 at 0900, Until Discontinu ed, Routine [facility] levETIRAcet am (KEPPRA) tablet 500 mg 08-01 14:00: 00 08-01 23:56 :35 No 500mg 500 mg, Oral, BID, First dose on Thu08/01/22 at 0800, Until Discontinu ed, Routine [facility] carvediloL (COREG) tablet 6.25 mg 08-01 14:00: 00 08-01 17:29 :13 No 6.25mg 6.25 mg, Oral, BID MEALS, First dose on Thu08/01/22 at 0800, Until Discontinu ed, Routine [facility] levETIRAcet am (KEPPRA) in NACL (ISO-OS) 1,000 mg/100 mL RTU 08-01 06:45: 00 08-01 06:32 :00 No 1000mg 1,000 mg, IV Piggyback, ONCE, 1 dose, On Thu08/01/22 at 0045, Administer over 15 Minutes, 100 mL [facility] LORazepam (ATIVAN) injection 1 mg 08-01 05:52: 54 Yes 1mg 1 mg, Slow IV Push, Q4HPRN, Starting on Thu07/31/22 at 2352, Until Discontinu ed, Routine, Seizures, Agitation, Anxiety, ETOH / Cocaine Withdrawl [facility] foLIC acid (FOLATE) tablet 1 mg 08-01 05:45: 00 Yes 1mg 1 mg, Oral, DAILY, First dose on Thu07/31/22 at 2345, Until Discontinu ed, Routine [facility] thiamine (VITAMIN B1) tablet 100 mg 08-01 05:45: 00 Yes 100mg 100 mg, Oral, DAILY, First dose on Thu07/31/22 at 2345, Until Discontinu ed, Routine [facility] LORazepam (ATIVAN) injection 0.5 mg 08-01 05:30: 00 08-01 05:29 :00 No .5mg 0.5 mg, Slow IV Push, ONCE, 1 dose, On Thu07/31/22 at 2330, MICHAEL [facility] atorvastati n (LIPITOR) tablet 40 mg 08-01 03:00: 00 Yes 40mg 40 mg, Oral, QHS, First dose on Thu07/31/22 at 2100, Until Discontinu ed, Routine [facility] diphenhydrA MINE (BENADRYL) tablet 25 mg 08-01 00:32: 02 Yes 25mg 25 mg, Oral, Q6HPRN, Starting on Thu07/31/22 at 1832, Until Discontinu ed, Routine, Itching [facility] enoxaparin (LOVENOX) injection 40 mg 07-31 23:00: 00 Yes 40mg 40 mg, Subcutaneo us, DAILY, First dose on Thu07/31/22 at 1700, Until Discontinu ed, Routine [facility] morpHINE (2 mg/mL) injection 2 mg 07-31 23:00: 00 07-31 22:29 :00 No 2mg 2 mg, Slow IV Push, ONCE, 1 dose, On Thu07/31/22 at 1700, Routine [facility] HYDROcodone -acetaminop hen (NORCO) 10-325 mg tablet 1 tablet 07-31 22:01: 36 Yes 1{tbl} 1 tablet, Oral, Q6HPRN, Starting on Thu07/31/22 at 1601, Until Discontinu ed, Routine, Pain (scale 7-10) [facility] HYDROcodone -acetaminop hen (NORCO 5) 5-325 mg tablet 1 tablet 07-31 22:01: 34 08-02 22:00 :34 No 1{tbl} 1 tablet, Oral, Q6HPRN, Starting on Thu07/31/22 at 1601, Until 08/02/22 at 1600, Routine, Pain (scale 4-6) [facility] acetaminoph en (TYLENOL) tablet 650 mg 07-31 22:01: 33 Yes 650mg 650 mg, Oral, Q6HPRN, Starting on Arpita 07/31/22 at 1601, Until Discontinu ed, Routine, Pain (scale 1-3) [facility] ketorolac (TORADOL) injection 15 mg 07-31 21:45: 00 07-31 20:50 :00 No 15mg 15 mg, Slow IV Push, ONCE, 1 dose, On Arpita 07/31/22 at 1545, Routine [facility] ondansetron (ZOFRAN (PF)) injection 4 mg 07-31 21:00: 00 07-31 20:47 :00 No 4mg 4 mg, Slow IV Push, ONCE, 1 dose, On Arpita 07/31/22 at 1500, MICHAEL [facility] furosemide (LASIX) injection 40 mg 07-31 20:15: 00 Yes 40mg 40 mg, Slow IV Push, Q12H, First dose on Arpita 07/31/22 at 1415, Until Discontinu ed, Routine [facility] methylpredn isolone sod succ (SOLU-MEDRO L) injection 125 mg 07-31 19:30: 00 07-31 18:54 :00 No 125mg 125 mg, Slow IV Push, ONCE NOW, 1 dose, On Arpita 07/31/22 at 1330, MICHAEL [facility] ipratropium -albuteroL (DUONEB) 0.5 mg-3 mg(2.5 mg base)/3 mL nebulizer solution 3 mL 07-31 19:30: 00 07-31 18:48 :00 No 3mL 3 mL, Inhalation , ONCE, 1 dose, On Arpita 07/31/22 at 1330, MICHAEL [facility] pantoprazol e 40 mg EC tablet 07-31 17:15: 40 Yes 40mg Take 40 mg by mouth daily. [facility] MULTIVITAMI N ORAL 07-31 15:50: 57 Yes 1{tbl} Take 1 Tab by mouth daily. [facility] loratadine (CLARITIN LIQUI-GEL) 10 mg capsule 07-31 15:50: 57 Yes Take by mouth daily. [facility] ondansetron 4 mg tablet 07-31 15:50: 57 Yes 4mg Take 4 mg by mouth every 8 (eight) hours as needed. [facility] omega-3 fatty acids-vitam in E (FISH OIL) 1,000 mg capsule 07-31 15:21: 27 Yes 1g Take 1 g by mouth daily. [facility] TAKE ONE (1) TABLET(S) BY MOUTH THREE TIMES A DAY NEEDED. 07-28 00:00: 00 No Methylpredn isolone 4 mg tablet 2021-07 00:00: 00 05-12 04:59 :00 No [id number] 4mg Take 1 tablet through enteral tube in the morning for 1 dose. [facility] Methylpredn isolone 4 mg tablet 2021-07 00:00: 00 05-11 04:59 :00 No [id number] 4mg Take 1 tablet through enteral tube every 12 (twelve) hours for 2 doses. [facility] MULTIVITAMI N ORAL 2021-07 14:44: 48 Yes 1{tbl} Take 1 Tab by mouth daily. [facility] omega-3 fatty acids-vitam in E (FISH OIL) 1,000 mg capsule 2021-07 14:44: 48 Yes 1g Take 1 g by mouth daily. [facility] loratadine (CLARITIN LIQUI-GEL) 10 mg capsule 2021-07 14:44: 48 Yes Take by mouth daily. [facility] ondansetron (ZOFRAN) 4 mg tablet 2021-07 14:44: 48 Yes 4mg Take 4 mg by mouth every 8 (eight) hours as needed. [facility] pantoprazol e (PROTONIX) 40 mg EC tablet 2021-07 14:44: 48 Yes 40mg Take 40 mg by mouth daily. [facility] DULoxetine (CYMBALTA) capsule 30 mg 2021-07 14:00: 00 Yes 30mg 30 mg, Oral, DAILY, First dose on Thu05/08/22 at 0900, Until Discontinu ed, Routine [facility] divalproex (DEPAKOTE) EC tablet 1,000 mg 2021-07 13:00: 00 Yes 1000mg 1,000 mg, Oral, BID, First dose (after last modificati on) on Thu05/08/22 at 0800, Until Discontinu ed, Routine [facility] Methylpredn isolone (MEDROL) tablet 4 mg 2021-07 08:50: 10 05-09 08:59 :00 No 4mg 4 mg, Oral, Q8H TAPER, 3 doses, First dose on Thu05/08/22 at 0400, Last dose on Thu05/08/22 at 2000, Routine [facility] acetaminoph en-codeine (TYLENOL #3) 300-30 mg tablet 1 tablet 2021-07 04:07: 01 Yes 1{tbl} 1 tablet, Oral, Q4HPRN, Starting on Thu05/07/22 at 2307, Until Discontinu ed, Routine, Pain (scale 7-10) [facility] morpHINE (2 mg/mL) injection 2 mg 2021-07 03:03: 15 Yes 2mg 2 mg, Slow IV Push, Q4HPRN, Starting on Thu05/07/22 at 2203, Until Discontinu ed, Routine, Pain (scale 7-10) [facility] LORazepam (ATIVAN) tablet 1 mg 2021-07 00:02: 18 Yes 1mg 1 mg, Oral, Q6HPRN, Starting on Thu05/07/22 at 1902, Until Discontinu ed, Routine, Anxiety [facility] cyclobenzap rine 5 mg tablet 2021-07 00:00: 00 Yes [id number] 5mg Take 1 tablet by mouth in the morning and 1 tablet at noon and 1 tablet in the evening. [facility] DULoxetine (CYMBALTA) 30 mg capsule 2021-07 00:00: 00 06-08 05:59 :00 No [id number] 60mg Take 2 capsules by mouth in the morning for 30 days. [facility] divalproex (DEPAKOTE) 250 mg EC tablet 2021-07 00:00: 00 06-08 05:59 :00 No [id number] 750mg Take 3 tablets by mouth every 8 (eight) hours for 30 days. [facility] LORazepam 1 mg tablet 2021-07 00:00: 05-19 04:59 :00 No [id number] 1mg Take 1 tablet by mouth every 6 (six) hours as needed for Anxiety or Agitation for up to 10 days. [facility] acetaminoph en-codeine 300-30 mg tablet 2021-07 00:00: 00 05-16 04:59 :00 No [id number] 1{tbl} Take 1 tablet by mouth every 4 (four) hours as needed for Pain (scale 7-10) for up to 7 days. Indication s: acute pain [facility] Methylpredn isolone 4 mg tablet 2021-07 00:00: 00 05-10 04:59 :00 No [id number] 4mg Take 1 tablet by mouth every 8 (eight) hours for 3 doses. [facility] divalproex (DEPAKOTE) EC tablet 750 mg 2021-07 01:00: 00 05-08 09:40 :23 No 750mg 750 mg, Oral, BID, First dose on Thu05/06/22 at 2000, Until Discontinu ed, Routine [facility] levETIRAcet am (KEPPRA) tablet 1,500 mg 2021-07 13:00: 00 05-06 18:38 :22 No 1500mg 1,500 mg, Oral, BID, First dose (after last modificati on) on Thu05/06/22 at 0800, Until Discontinu ed, Routine [facility] levETIRAcet am (KEPPRA) in NACL (ISO-OS) 1,000 mg/100 mL RTU 2021-07 05:00: 00 05-06 05:46 :00 No 1000mg 1,000 mg, IV Piggyback, ONCE, 1 dose, On Thu05/06/22 at 0000, Administer over 15 Minutes, 100 mL [facility] methocarbam oL (ROBAXIN) tablet 500 mg 2021-07 02:15: 00 05-06 23:21 :42 No 500mg 500 mg, Oral, QID, First dose on Thu05/05/22 at 2115, Until Discontinu ed, Routine [facility] LORazepam (ATIVAN) tablet 2 mg 2021-07 01:30: 00 05-06 01:03 :00 No 2mg 2 mg, Oral, ONCE, 1 dose, On Thu05/05/22 at 2030, Routine [facility] levETIRAcet am (KEPPRA) tablet 1,000 mg 2021-07 01:00: 00 05-06 04:48 :06 No 1000mg 1,000 mg, Oral, BID, First dose on Thu05/05/22 at 2000, Until Discontinu ed, Routine [facility] enoxaparin (LOVENOX) injection 40 mg 2021-07 00:15: 00 Yes 40mg 40 mg, Subcutaneo us, Q24H, First dose on Thu05/05/22 at 1915, Until Discontinu ed, Routine [facility] levETIRAcet am (KEPPRA) in NACL (ISO-OS) 1,000 mg/100 mL RTU 2021-07 19:45: 00 05-05 20:05 :00 No 1000mg 1,000 mg, IV Piggyback, ONCE, 1 dose, On Thu05/05/22 at 1445, Administer over 15 Minutes, 100 mL [facility] clonazePAM (KLONOPIN) tablet 0.5 mg 2021-07 19:30: 00 Yes .5mg 0.5 mg, Oral, BID, First dose on Thu05/05/22 at 1430, Until Discontinu ed, Routine [facility] ibuprofen (IBU) tablet 600 mg 2021-07 19:30: 00 Yes 600mg 600 mg, Oral, TID MEALS, First dose on Thu05/05/22 at 1430, Until Discontinu ed, Routine [facility] gabapentin (NEURONTIN) capsule 300 mg 2021-07 19:30: 00 Yes 300mg 300 mg, Oral, TID, First dose on Thu05/05/22 at 1430, Until Discontinu ed, Routine [facility] cyclobenzap rine (FLEXERIL) tablet 5 mg 2021-07 19:30: 00 Yes 5mg 5 mg, Oral, TID, First dose on Thu05/05/22 at 1430, Until Discontinu ed, Routine [facility] acetaminoph en (TYLENOL) tablet 1,000 mg 2021-07 19:30: 00 Yes 1000mg 1,000 mg, Oral, Q8H, First dose on Thu05/05/22 at 1430, Until Discontinu ed, Routine [facility] pantoprazol e (PROTONIX) EC tablet 40 mg 2021-07 14:00: 00 Yes 40mg 40 mg, Oral, DAILY, First dose on Thu05/05/22 at 0900, Until Discontinu ed, Routine [facility] docusate (COLACE) capsule 100 mg 2021-07 14:00: 00 Yes 100mg 100 mg, Oral, DAILY, First dose on Thu05/05/22 at 0900, Until Discontinu ed, Routine [facility] HYDROcodone -acetaminop hen (NORCO) 10-325 mg tablet 1 tablet 2021-07 10:32: 02 05-05 19:18 :52 No 1{tbl} 1 tablet, Oral, Q6HPRN, Starting on Thu05/05/22 at 0532, Until Thu05/05/22 at 1418, Routine, Pain (scale 7-10) [facility] ondansetron (ZOFRAN (PF)) injection 4 mg 2021-07 06:49: 57 Yes 4mg 4 mg, Slow IV Push, Q6HPRN, Starting on Thu05/05/22 at 0149, Until Discontinu ed, Routine, Nausea and Vomiting (N/V) [facility] HYDROcodone -acetaminop hen (NORCO 5) 5-325 mg tablet 1 tablet 2021-07 06:49: 41 05-05 10:32 :14 No 1{tbl} 1 tablet, Oral, Q6HPRN, Starting on Thu05/05/22 at 0149, Until Thu05/05/22 at 0532, Routine, Pain (scale 7-10) [facility] acetaminoph en (TYLENOL) tablet 325 mg 2021-07 06:49: 39 05-05 19:18 :52 No 325mg 325 mg, Oral, Q4HPRN, Starting on Thu05/05/22 at 0149, Until Thu05/05/22 at 1418, Routine, Pain (scale 4-6) [facility] ondansetron (ZOFRAN) tablet 4 mg 2021-07 04:00: 00 05-05 03:26 :00 No 4mg 4 mg, Oral, ONCE, 1 dose, On 05/04/22 at 2300, Routine [facility] morpHINE (2 mg/mL) injection 2 mg 2021-07 04:00: 00 05-05 03:26 :00 No 2mg 2 mg, Slow IV Push, ONCE, 1 dose, On Thu05/04/22 at 2300, Routine [facility] aspirin 81 mg chewable tablet 04-16 00:00: 00 Yes [id number] 81mg Take 1 tablet by mouth in the morning. [facility] MULTIVITAMI N ORAL 04-15 17:39: 14 Yes 1{tbl} Take 1 Tab by mouth daily. [facility] omega-3 fatty acids-vitam in E (FISH OIL) 1,000 mg capsule 04-15 17:39: 14 Yes 1g Take 1 g by mouth daily. [facility] loratadine (CLARITIN LIQUI-GEL) 10 mg capsule 04-15 17:39: 14 Yes Take by mouth daily. [facility] ondansetron (ZOFRAN) 4 mg tablet 04-15 17:39: 14 Yes 4mg Take 4 mg by mouth every 8 (eight) hours as needed. [facility] pantoprazol e (PROTONIX) 40 mg EC tablet 04-15 17:39: 14 Yes 40mg Take 40 mg by mouth daily. [facility] lisinopril- hydrochloro thiazide 20-12.5 mg per tablet 04-15 15:58: 35 04-15 00:00 :00 No 1{tbl} Take 1 tablet by mouth daily. [facility] levetiracet am (KEPPRA ORAL) 04-15 15:58: 35 04-15 00:00 :00 No Take by mouth. [facility] acetaminoph en-codeine (TYLENOL #4) 300-60 mg tablet 1 tablet 04-15 05:39: 23 04-15 14:39 :42 No 1{tbl} 1 tablet, Oral, Q6HPRN, Starting on Thu04/15/22 at 0039, Until Thu04/15/22 at 0939, Routine, Pain (scale 4-6), Pain (scale 1-3) [facility] LORazepam (ATIVAN) tablet 2 mg 04-15 03:30: 00 04-15 10:27 :00 No 2mg 2 mg, Oral, ONCE, 1 dose, On Thu04/14/22 at 2230, Routine [facility] levETIRAcet am (KEPPRA) tablet 1,000 mg 04-15 02:45: 00 Yes 1000mg 1,000 mg, Oral, BID, First dose (after last modificati on) on Thu04/14/22 at 2145, Until Discontinu ed, Routine [facility] ketorolac (TORADOL) injection 15 mg 04-15 02:13: 00 04-15 02:22 :00 No 15mg 15 mg, Slow IV Push, ONCE, 1 dose, On Thu04/14/22 at 2115, Routine [facility] atorvastati n 40 mg tablet 04-15 00:00: 00 Yes [id number] 40mg Take 1 tablet by mouth at bedtime. [facility] levETIRAcet am 1,000 mg tablet 04-15 00:00: 00 05-08 00:00 :00 No [id number] 1000mg Take 1 tablet by mouth in the morning and 1 tablet in the evening. [facility] lidocaine 5 % (700 mg/patch) patch 04-15 00:00: 00 04-23 04:59 :00 No [id number] 1{patch } Apply 1 Patch to area(s) in the morning for 7 days. [facility] HYDROcodone -acetaminop hen 5-325 mg tablet 04-15 00:00: 00 04-21 04:59 :00 No [id number] 1{tbl} Take 1 tablet by mouth every 6 (six) hours as needed for Pain (scale 7-10) for up to 5 days. Indication s: acute pain [facility] lidocaine (LIDODERM) 5 % (700 mg/patch) patch 1 Patch 04-14 21:45: 29 Yes 1{patch } 1 Patch, Topical, Administer over 12 Hours, [id number], Starting on Thu04/14/22 at 1645, Until Discontinu ed, Routine, Localized pain [facility] aspirin chewable tablet 81 mg 04-14 21:30: 00 Yes 81mg 81 mg, Oral, DAILY, First dose on Thu04/14/22 at 1630, Until Discontinu ed, Routine [facility] acetaminoph en (TYLENOL) tablet 650 mg 04-14 21:29: 25 Yes 650mg 650 mg, Oral, Q6HPRN, Starting on Thu04/14/22 at 1629, Until Discontinu ed, Routine, Pain (scale 1-3), Temp > 38.5 C, Temp > 37.5 C [facility] HYDROcodone -acetaminop hen (NORCO) 10-325 mg tablet 1 tablet 04-14 21:29: 02 04-15 05:39 :41 No 1{tbl} 1 tablet, Oral, Q6HPRN, Starting on Thu04/14/22 at 1629, Until Thu04/15/22 at 0039, Routine, Pain (scale 7-10), Pain (scale 4-6) [facility] sulfur hexafluorid e microsphr (LUMASON) injection 5 mL 04-14 16:45: 00 04-14 16:45 :00 No [id number] 5mL 5 mL, Intravenou s, ONCE, 1 dose, On Thu04/14/22 at 1145, Routine
member of technical staff approving Restricted medication : [employer] [facility] clopidogreL (PLAVIX) 75 mg tablet 75 mg 04-14 14:00: 00 Yes 75mg 75 mg, Oral, DAILY, First dose on Thu04/14/22 at 0900, Until Discontinu ed, Routine [facility] pantoprazol e (PROTONIX) EC tablet 40 mg 04-14 14:00: 00 Yes 40mg 40 mg, Oral, DAILY, First dose on Thu04/14/22 at 0900, Until Discontinu ed, Routine [facility] atorvastati n (LIPITOR) tablet 40 mg 04-14 02:00: 00 Yes 40mg 40 mg, Oral, QHS, First dose on Thu04/13/22 at 2100, Until Discontinu ed, Routine [facility] LORazepam (ATIVAN) tablet 1 mg 04-14 01:30: 00 04-14 01:45 :00 No 1mg 1 mg, Oral, ONCE, 1 dose, On Thu04/13/22 at 2030, Routine [facility] methocarbam oL (ROBAXIN) tablet 500 mg 04-14 01:00: 00 Yes 500mg 500 mg, Oral, QID, First dose on Thu04/13/22 at 2000, Until Discontinu ed, Routine [facility] heparin (porcine) injection 5,000 Units 04-14 01:00: 00 Yes 5000U 5,000 Units, Subcutaneo us, Q12H, First dose on Thu04/13/22 at 2000, Until Discontinu ed, Routine [facility] acetaminoph en (TYLENOL) tablet 650 mg 04-14 00:23: 25 04-14 21:29 :42 No 650mg 650 mg, Oral, Q6HPRN, Starting on 04/13/22 at 1923, Until 04/14/22 at 1629, Routine, Pain (scale 1-3), Pain (scale 4-6), Temp > 38.5 C, Temp > 37.5 C [facility] lidocaine (LIDODERM) 5 % (700 mg/patch) patch 1 Patch 04-14 00:22: 00 04-14 13:51 :00 No 1{patch } 1 Patch, Topical, Administer over 12 Hours, ONCE, 1 dose, On Thu04/13/22 at 1930, Routine [facility] FENTanyl PF (SUBLIMAZE (PF)) injection 50 mcg 04-13 20:30: 00 04-13 19:22 :00 No 50ug 50 mcg, Slow IV Push, ONCE, 1 dose, On Thu04/13/22 at 1530, Routine [facility] aspirin chewable tablet 650 mg 04-13 20:15: 00 04-13 20:15 :00 No 650mg 650 mg, Oral, ONCE, 1 dose, On Thu04/13/22 at 1515, Routine [facility] clopidogreL (PLAVIX) 300 mg tablet 300 mg 04-13 20:00: 00 04-13 19:15 :00 No 300mg 300 mg, Oral, ONCE, 1 dose, On Thu04/13/22 at 1500, Routine [facility] ondansetron (ZOFRAN (PF)) injection 4 mg 04-13 19:30: 00 04-13 19:22 :00 No 4mg 4 mg, Slow IV Push, ONCE, 1 dose, On Thu04/13/22 at 1430, MICHAEL [facility] iopamidol (ISOVUE 370-500 mL) injection 100 mL 04-13 18:31: 00 04-13 18:32 :00 No [id number] 100mL 100 mL, Intravenou s, ONCE, 1 dose, On 04/13/22 at 1345, Routine [facility] NaCl 0.9% (NS) injection 5 mL 04-13 18:14: 11 Yes 5mL 5 mL, Slow IV Push, PRN - SEE INSTRUCTIO NS, Starting on 04/13/22 at 1314, Until Discontinu ed, 10 mL [facility] aspirin chewable tablet 324 mg 11-24 14:00: 00 Yes 324mg 324 mg, Oral, DAILY, First dose on 11/24/21 at 0900, Until Discontinu ed, Routine [facility] metoclopram iker HCl (REGLAN) injection 10 mg 11-23 22:30: 00 11-23 21:24 :00 No 10mg 10 mg, Slow IV Push, ONCE, 1 dose, On 11/23/21 at 1730, [facility] acetaminoph en (TYLENOL) tablet 1,000 mg 11-23 22:15: 00 11-23 21:09 :00 No 1000mg 1,000 mg, Oral, ONCE, 1 dose, On 11/23/21 at 1715, [facility] ondansetron (ZOFRAN (PF)) injection 4 mg 11-23 21:45: 00 11-23 20:30 :00 No 4mg 4 mg, Slow IV Push, ONCE, 1 dose, On 11/23/21 at 1645, [facility] NaCl 0.9% (NS) bolus infusion 1,000 mL 11-23 21:30: 00 11-23 21:56 :00 No 1000mL at 999 mL/hr, 1,000 mL, IV Infusion, ONCE, 1 dose, On 11/23/21 at 1630, [facility] LORazepam (ATIVAN) injection 4 mg 11-23 21:30: 00 11-23 20:23 :00 No 4mg 4 mg, Slow IV Push, ONCE, 1 dose, On 11/23/21 at 1630, STAT [facility] levETIRAcet am (KEPPRA) in NACL (ISO-OS) 1,500 mg/100 mL RTU 2021-0 11-23 21:30: 00 11-23 20:47 :00 No 1500mg 1,500 mg, IV Piggyback, ONCE, 1 dose, On 11/23/21 at 1630, Administer over 15 Minutes, 100 mL [facility] Dose Unknown 2021-0 4-08 00:00: [...] 3-09 00:00: 00 No 1mg Dose Unknown 2-0 3-06 00:00: 00 No Dose Unknown 2-0 3-06 00:00: 00 No Dose Unknown 2022-0 3-06 00:00: 00 No Dose Unknown 2022-0 3-06 00:00: 00 No Dose Unknown 2022-0 3-06 00:00: 00 No Dose Unknown 2022-0 3-06 00:00: 00 No Dose Unknown 2022-0 3-06 00:00: 00 No Dose Unknown 2022-0 3-06 00:00: 00 No Dose Unknown 3 00:00: 00 No Dose Unknown 306 00:00: 00 No Wellbutrin XL 150 mg [...] y
Durat ion of Therapy: 7 days [facility] morpHINE injection 4 mg 03-17 01:58: 00 03-17 02:13 :00 No 4mg 4 mg, Slow IV Push, ONCE, 1 dose, 03/16/21 at 2100, STAT [facility] ondansetron (ZOFRAN (PF)) injection 4 mg 03-17 01:58: 00 03-17 02:12 :00 No 4mg 4 mg, Slow IV Push, ONCE, 1 dose, 03/16/21 at 2100, MICHAEL [facility] ipratropium -albuteroL (DUONEB) 0.5 mg-3 mg(2.5 mg base)/3 mL nebulizer solution 3 mL 03-17 01:57: 00 03-17 02:15 :00 No 3mL 3 mL, Inhalation , ONCE, 1 dose, 03/16/21 [facility] 2100[facility] (NS[facility] IV infusion 1,000 mL 03-17 01:57: 00 03-17 03:07 :00 No 1000mL at 999 mL/hr, Intravenou s, ONCE, 1 dose, 03/16/21 at 2100, [facility] methylpredn isolone sod succ (SOLU-MEDRO L) injection 125 mg 03-17 01:57: 00 03-17 02:11 :00 No 125mg 125 mg, Slow IV Push, ONCE, 1 dose, 03/16/21 at 2100, STAT [facility] levoFLOXaci n 500 mg tablet 03-17 00:00: 00 03-24 04:59 :00 No [id number] 500mg Take 1 tablet by mouth daily for 6 days. [facility] predniSONE 10 mg tablet 03-17 00:00: 00 03-22 04:59 :00 No [id number] 30mg Take 3 tablets by mouth daily for 4 days. [facility] albuterol (VENTOLIN) inhaler 4 Puff 03-15 01:45: 00 03-15 00:44 :00 No [id number] 4{puff} 4 Puff, Inhalation , ONCE, 1 dose, Arpita 03/14/21 at 2044, Routine [facility] dexamethaso ne (DECADRON) injection 10 mg 03-15 01:45: 00 03-15 00:45 :00 No [id number] 10mg 10 mg, Intramuscu lar, ONCE, 1 dose, Arpita 03/14/21 at 2044, Routine [facility] albuterol 2.5 mg /3 mL (0.083 %) nebulizer solution 03-15 00:00: 00 Yes [id number] 2.5mg Inhale 3 mL every 4 (four) hours as needed for Wheezing or Shortness of Breath. [facility] levETIRAcet am (KEPPRA) in NACL (ISO-OS) 1,000 mg/100 mL RTU 02-19 20:15: 00 02-19 19:30 :00 No 1000mg 1,000 mg, IV Infusion, ONCE, 1 dose, 02/19/21 at 1515, Administer over 15 Minutes, 100 mL [facility] levetiracet am (KEPPRA ORAL) 02-19 19:45: 33 Yes Take by mouth. [facility] LISINOPRIL- HYDROCHLORO THIAZIDE ORAL 02-19 19:41: 15 02-19 00:00 :00 No Take by mouth. [facility] dicyclomine (BENTYL) injection 20 mg 02-19 19:15: 00 02-19 19:04 :00 No 20mg 20 mg, Intramuscu lar, ONCE, 1 dose, 02/19/21 at 1415, Routine [facility] proMETHazin e (PHENERGAN) 25 mg in NaCl 0.9% (NS) 50 mL piggyback 02-19 19:15: 00 02-19 19:03 :00 No 25mg 25 mg, IV Piggyback, ONCE, 1 dose, 02/19/21 at 1415, 50 mL [facility] morpHINE injection 4 mg 02-19 17:15: 00 02-19 17:05 :00 No 4mg 4 mg, Slow IV Push, ONCE, 1 dose, 02/19/21 at 1215, STAT [facility] NaCl 0.9% (NS) bolus infusion 1,000 mL 02-19 17:15: 00 02-19 19:04 :00 No 1000mL at 999 mL/hr, 1,000 mL, IV Infusion, ONCE, 1 dose, 02/19/21 at 1215, STAT [facility] ondansetron (ZOFRAN (PF)) injection 4 mg 02-19 17:00: 00 02-19 15:59 :00 No 4mg 4 mg, Slow IV Push, ONCE, 1 dose, Thu02/19/21 at 1200, MICHAEL [facility] iopamidol (ISOVUE 370-500 mL) injection 100 mL 02-19 16:35: 00 02-19 16:45 :00 No [id number] 100mL 100 mL, Intravenou s, ONCE, 1 dose, Thu02/19/21 at 1145, Routine [facility] levetiracet am (KEPPRA ORAL) 02-19 14:45: 33 Yes Take by mouth. [facility] proMETHazin e 25 mg tablet 02-19 00:00: 00 Yes [id number] 25mg Take 1 tablet by mouth every 6 (six) hours as needed for Nausea and Vomiting (N/V). [facility] dicyclomine 20 mg tablet 02-19 00:00: 00 Yes [id number] 20mg Take 1 tablet by mouth 4 (four) times daily as needed for Abdominal pain. [facility] ZONISAMIDE 100 mg capsule 11-15 00:00: 00 02-19 00:00 :00 No TAKE 1 CAPSULE BY MOUTH TWICE A DAY [facility] ondansetron (ZOFRAN) 4 mg tablet 02-09 20:05: 01 Yes 4mg Take 4 mg by mouth every 8 (eight) hours as needed. [facility] pantoprazol e (PROTONIX) 40 mg EC tablet 02-09 20:05: 01 Yes 40mg Take 40 mg by mouth daily. [facility] LISINOPRIL- HYDROCHLORO THIAZIDE ORAL 02-09 20:05: 01 Yes Take by mouth. [facility] lisinopril- hydrochloro thiazide 20-12.5 mg per tablet 02-09 20:03: 30 Yes 1{tbl} Take 1 tablet by mouth daily. [facility] omega-3 fatty acids-vitam in E (FISH OIL) 1,000 mg capsule 02-09 19:59: 52 Yes 1g Take 1 g by mouth daily. [facility] MULTIVITAMI N ORAL 02-09 19:58: 14 Yes 1{tbl} Take 1 Tab by mouth daily. [facility] loratadine (CLARITIN LIQUI-GEL) 10 mg capsule 02-09 19:58: 14 Yes Take by mouth daily. [facility] ondansetron (ZOFRAN) 4 mg tablet 02-09 15:05: 01 Yes 4mg Take 4 mg by mouth every 8 (eight) hours as needed. [facility] pantoprazol e (PROTONIX) 40 mg EC tablet 02-09 15:05: 01 Yes 40mg Take 40 mg by mouth daily. [facility] lisinopril- hydrochloro thiazide 20-12.5 mg per tablet 02-09 15:03: 30 Yes 1{tbl} Take 1 tablet by mouth daily. [facility] omega-3 fatty acids-vitam in E (FISH OIL) 1,000 mg capsule 02-09 14:59: 52 Yes 1g Take 1 g by mouth daily. [facility] MULTIVITAMI N ORAL 02-09 14:58: 14 Yes 1{tbl} Take 1 Tab by mouth daily. [facility] loratadine (CLARITIN LIQUI-GEL) 10 mg capsule 02-09 14:58: 14 Yes Take by mouth daily. [facility] proMETHazin e (PHENERGAN) 25 mg tablet 11-20 00:00: 00 02-19 00:00 :00 No 25mg Take 1 tablet by mouth every 6 (six) hours as needed for Nausea and Vomiting (N/V). [facility] carvedilol (COREG) 6.25 mg tablet 09-19 00:00: 00 Yes 6.25mg Take 1 Tab by mouth 2 (two) times daily with meals. [facility] amLODIPine (NORVASC) 10 mg tablet 09-19 00:00: 00 Yes 10mg Take 1 Tab by mouth daily. [facility] lisinopril (PRINIVIL,Z ESTRIL) 40 mg tablet 09-19 00:00: 00 Yes 40mg Take 1 Tab by mouth daily. [facility] Immunizations Ordered Immunization Name Filled Immunization Name Date Status Comments Source SARS-COV-2 COVID-19 PFIZER BA-SUCROSE VACCINE (ROSE TOP) 2022-02-19 00:00:[address] [facility] SARS-COV-2 COVID-19 PFIZER BA-SUCROSE VACCINE (ROSE TOP) 2022-02-19 00:00:[address] [facility] SARS-COV-2 COVID-19 PFIZER BA-SUCROSE VACCINE (ROSE TOP) 2022-02-19 00:00:[address] [facility] SARS-COV-2 COVID-19 PFIZER BA-SUCROSE VACCINE (ROSE TOP) 2022-02-19 00:00:[address] [facility] SARS-COV-2 COVID-19 PFIZER BA-SUCROSE VACCINE (ROSE TOP) 2022-02-19 00:00:[address] [facility] SARS-COV-2 COVID-19 PFIZER BA-SUCROSE VACCINE (ROSE TOP) 2022-02-19 00:00:[address] [facility] SARS-COV-2 COVID-19 PFIZER BA-SUCROSE VACCINE (ROSE TOP) 2022-02-19 00:00:[address] [facility] SARS-COV-2 COVID-19 PFIZER BA-SUCROSE VACCINE (ROSE TOP) 2022-02-19 00:00:[address] [facility] SARS-COV-2 COVID-19 PFIZER BA-SUCROSE VACCINE (ROSE TOP) 2022-02-19 00:00:[address] [facility] SARS-COV-2 COVID-19 PFIZER VACCINE 2021-05-24 00:00:[address] [facility] SARS-COV-2 COVID-19 PFIZER VACCINE 2021-05-24 00:00:[address] [facility] SARS-COV-2 COVID-19 PFIZER VACCINE 2021-05-24 00:00:[address] [facility] SARS-COV-2 COVID-19 PFIZER VACCINE 2021-05-24 00:00:[address] [facility] SARS-COV-2 COVID-19 PFIZER VACCINE 2021-05-24 00:00:[address] [facility] SARS-COV-2 COVID-19 PFIZER VACCINE 2021-05-24 00:00:[address] [facility] SARS-COV-2 COVID-19 PFIZER VACCINE 2021-05-24 00:00:[address] [facility] SARS-COV-2 COVID-19 PFIZER VACCINE 2021-05-24 00:00:[address] [facility] SARS-COV-2 COVID-19 PFIZER VACCINE 2021-05-24 00:00:[address] [facility] SARS-COV-2 COVID-19 PFIZER VACCINE 2021-05-24 00:00:[address] [facility] SARS-COV-2 COVID-19 PFIZER VACCINE 2021-05-24 00:00:[address] [facility] SARS-COV-2 COVID-19 PFIZER VACCINE 2021-05-03 00:00:[address] [facility] SARS-COV-2 COVID-19 PFIZER VACCINE 2021-05-03 00:00:[address] [facility] SARS-COV-2 COVID-19 PFIZER VACCINE 2021-05-03 00:00:[address] [facility] SARS-COV-2 COVID-19 PFIZER VACCINE 2021-05-03 00:00:[address] [facility] SARS-COV-2 COVID-19 PFIZER VACCINE 2021-05-03 00:00:[address] [facility] SARS-COV-2 COVID-19 PFIZER VACCINE 2021-05-03 00:00:[address] [facility] SARS-COV-2 COVID-19 PFIZER VACCINE 2021-05-03 00:00:[address] [facility] SARS-COV-2 COVID-19 PFIZER VACCINE 2021-05-03 00:00:[address] [facility] SARS-COV-2 COVID-19 PFIZER VACCINE 2021-05-03 00:00:[address] [facility] SARS-COV-2 COVID-19 PFIZER VACCINE 2021-05-03 00:00:[address] [facility] SARS-COV-2 COVID-19 PFIZER VACCINE 2021-05-03 00:00:[address] [facility] SARS-COV-2 COVID-19 PFIZER VACCINE 2021-05-03 00:00:[address] [facility] SARS-COV-2 COVID-19 PFIZER VACCINE Unknown Completed [facility] SARS-COV-2 COVID-19 PFIZER VACCINE Unknown Completed [facility] SARS-COV-2 COVID-19 PFIZER BA-SUCROSE VACCINE (ROSE TOP) Unknown Completed [facility] Vital Signs Vital Name Observation [...] Systolic blood pressure 2023-08-12 21:00:00 130 mm[Hg] [facility] Diastolic blood pressure 2023-08-12 21:00:00 85 mm[Hg] [facility] Heart rate 2023-08-12 21:00:00 106 /min [facility] Respiratory rate 2023-08-12 21:00:00 14 /min [facility] Oxygen saturation in Arterial blood by Pulse oximetry 2023-08-12 21:00:00 95 /min [facility] Body temperature 2023-08-12 20:34:54 37.22 [facility] Body height 2023-08-12 19:47:00 157.5 cm [facility] Body weight 2023-08-12 19:47:00 81.647 kg [facility] BMI 2023-08-12 19:47:00 32.92 kg/m2 [facility] WEIGHT 2023-06-16 05:26:00 86.047 kg HEIGHT [...] Systolic blood pressure 2022-12-11 20:00:00 142 mm[Hg] [facility] Diastolic blood pressure 2022-12-11 20:00:00 90 mm[Hg] [facility] Respiratory rate 2022-12-11 20:00:00 24 /min [facility] Heart rate 2022-12-11 18:00:00 101 /min [facility] Oxygen saturation in Arterial blood by Pulse oximetry 2022-12-11 18:00:00 93 /min [facility] BMI 2022-12-11 13:55:00 35.43 kg/m2 [facility] Body temperature 2022-12-11 13:55:[address] [facility] Body weight 2022-12-11 13:55:00 90.719 kg [facility] Systolic blood pressure 2022-11-18 05:34:00 152 mm[Hg] [facility] Diastolic blood pressure 2022-11-18 05:34:00 98 mm[Hg] [facility] Heart rate 2022-11-18 05:34:00 88 /min [facility] Respiratory rate 2022-11-18 05:34:00 18 /min [facility] Oxygen saturation in Arterial blood by Pulse oximetry 2022-11-18 05:34:00 97 /min [facility] Body temperature 2022-11-17 22:28:[address] [facility] Body height 2022-11-17 22:28:00 160 cm [facility] Body weight 2022-11-17 22:28:00 99.791 kg [facility] BMI 2022-11-17 22:28:00 38.97 kg/m2 [facility] Heart rate 2022-08-02 02:02:00 108 /min [facility] Respiratory rate 2022-08-02 02:02:00 28 /min [facility] Oxygen saturation in Arterial blood by Pulse oximetry 2022-08-02 02:02:00 97 /min [facility] Body temperature 2022-08-02 01:00:[address] [facility] Systolic blood pressure 2022-08-01 23:29:00 145 mm[Hg] [facility] Diastolic blood pressure 2022-08-01 23:29:00 103 mm[Hg] [facility] Body weight 2022-08-01 09:16:00 97.977 kg [facility] BMI 2022-08-01 09:16:00 38.26 kg/m2 [facility] Body height 2022-07-31 21:54:00 160 cm [facility] Systolic blood pressure 2022-05-08 16:40:00 146 mm[Hg] [facility] Diastolic blood pressure 2022-05-08 16:40:00 96 mm[Hg] [facility] Heart rate 2022-05-08 16:40:00 112 /min [facility] Body temperature 2022-05-08 16:40:[address] [facility] Respiratory rate 2022-05-08 16:40:00 18 /min [facility] Oxygen saturation in Arterial blood by Pulse oximetry 2022-05-08 16:40:00 94 /min [facility] Body height 2022-05-05 23:44:00 160 cm [facility] Body weight 2022-05-05 23:37:00 81.647 kg [facility] BMI 2022-05-05 23:37:00 31.89 kg/m2 [facility] Systolic blood pressure 2022-04-15 18:52:00 104 mm[Hg] [facility] Diastolic blood pressure 2022-04-15 18:52:00 82 mm[Hg] [facility] Heart rate 2022-04-15 18:52:00 114 /min [facility] Oxygen saturation in Arterial blood by Pulse oximetry 2022-04-15 18:52:00 98 /min [facility] Body temperature 2022-04-15 16:14:[address] [facility] Respiratory rate 2022-04-15 16:14:00 17 /min [facility] Body height 2022-04-13 21:08:00 160 cm [facility] Body weight 2022-04-13 21:08:00 91.173 kg [facility] BMI 2022-04-13 21:08:00 35.61 kg/m2 [facility] Systolic blood pressure 2021-11-23 21:30:00 132 mm[Hg] [facility] Diastolic blood pressure 2021-11-23 21:30:00 76 mm[Hg] [facility] Heart rate 2021-11-23 21:30:00 95 /min [facility] Respiratory rate 2021-11-23 21:30:00 13 /min [facility] Oxygen saturation in Arterial blood by Pulse oximetry 2021-11-23 21:30:00 97 /min [facility] Body temperature 2021-11-23 20:15:[address] [facility] Systolic blood pressure 2021-03-17 03:00:00 117 mm[Hg] [facility] Diastolic blood pressure 2021-03-17 03:00:00 76 mm[Hg] [facility] Heart rate 2021-03-17 03:00:00 104 /min [facility] Respiratory rate 2021-03-17 03:00:00 28 /min [facility] Oxygen saturation in Arterial blood by Pulse oximetry 2021-03-17 03:00:00 96 /min [facility] Body temperature 2021-03-17 00:39:[address] [facility] Body height 2021-03-17 00:39:00 160 cm [facility] Body weight 2021-03-17 00:39:00 58.968 kg [facility] BMI 2021-03-17 00:39:00 23.03 kg/m2 [facility] Systolic blood pressure 2021-03-15 00:14:00 149 mm[Hg] [facility] Diastolic blood pressure 2021-03-15 00:14:00 78 mm[Hg] [facility] Heart rate 2021-03-15 00:14:00 100 /min [facility] Body temperature 2021-03-15 00:14:[address] [facility] Respiratory rate 2021-03-15 00:14:00 24 /min [facility] Body height 2021-03-15 00:14:00 160 cm [facility] Body weight 2021-03-15 00:14:00 58.968 kg [facility] BMI 2021-03-15 00:14:00 23.03 kg/m2 [facility] Oxygen saturation in Arterial blood by Pulse oximetry 2021-03-15 00:14:00 98 /min [facility] Systolic blood pressure 2021-02-19 18:00:00 131 mm[Hg] [facility] Diastolic blood pressure 2021-02-19 18:00:00 80 mm[Hg] [facility] Heart rate 2021-02-19 18:00:00 83 /min [facility] Respiratory rate 2021-02-19 18:00:00 18 /min [facility] Oxygen saturation in Arterial blood by Pulse oximetry 2021-02-19 18:00:00 100 /min [facility] Body temperature 2021-02-19 15:47:[address] [facility] Body height 2021-02-19 15:47:00 160 cm [facility] Body weight 2021-02-19 15:47:00 58.968 kg [facility] BMI 2021-02-19 15:47:00 23.03 kg/m2 [facility] Heart rate 2023-09-08 08:54:00 118 /min [facility] Respiratory rate 2023-09-08 08:54:00 21 /min [facility] Oxygen saturation in Arterial blood by Pulse oximetry 2023-09-08 08:54:00 100 /min [facility] Systolic blood pressure 2023-09-08 08:32:00 110 mm[Hg] [facility] Diastolic blood pressure 2023-09-08 08:32:00 77 mm[Hg] [facility] Body temperature 2023-09-08 08:32:00 36.06 Radha [facility] Body height 2023-09-04 00:58:00 157.5 cm [facility] Body weight 2023-09-04 00:58:00 80 kg [facility] BMI 2023-09-04 00:58:00 32.26 kg/m2 [facility] Heart rate 2023-06-16 17:00:00 108 /min [facility] Systolic blood pressure 2023-06-16 15:31:00 101 mm[Hg] [facility] Diastolic blood pressure 2023-06-16 15:31:00 81 mm[Hg] [facility] Body temperature 2023-06-16 15:31:00 36.61 Radha [facility] Respiratory rate 2023-06-16 15:31:00 18 /min [facility] Oxygen saturation in Arterial blood by Pulse oximetry 2023-06-16 15:31:00 94 /min [facility] Body weight 2023-06-16 05:26:00 86.047 kg [facility] BMI 2023-06-16 05:26:00 33.60 kg/m2 [facility] Body height 2023-06-13 04:00:00 160 cm [facility] Systolic blood pressure 2023-06-04 13:02:00 93 mm[Hg] [facility] Diastolic blood pressure 2023-06-04 13:02:00 57 mm[Hg] [facility] Heart rate 2023-06-04 13:02:00 101 /min [facility] Respiratory rate 2023-06-04 13:02:00 22 /min [facility] Oxygen saturation in Arterial blood by Pulse oximetry 2023-06-04 13:02:00 95 /min room air [facility] Body temperature 2023-06-04 11:46:00 35.28 Radha [facility] Systolic blood pressure 2023-05-28 16:00:00 154 mm[Hg] [facility] Diastolic blood pressure 2023-05-28 16:00:00 82 mm[Hg] [facility] Heart rate 2023-05-28 16:00:00 89 /min [facility] Body temperature 2023-05-28 16:00:00 36.67 Radha [facility] Respiratory rate 2023-05-28 16:00:00 16 /min [facility] Oxygen saturation in Arterial blood by Pulse oximetry 2023-05-28 16:00:00 97 /min [facility] Body height 2023-05-28 07:00:00 157.5 cm [facility] Body weight 2023-05-28 07:00:00 87.544 kg [facility] BMI 2023-05-28 07:00:00 35.30 kg/m2 [facility] Body height 2023-05-26 09:12:00 157.5 cm [facility] Body weight 2023-05-26 09:12:00 87.091 kg [facility] BMI 2023-05-26 09:12:00 35.12 kg/m2 [facility] Respiratory rate 2023-04-02 16:35:00 18 /min [facility] Oxygen saturation in Arterial blood by Pulse oximetry 2023-04-02 16:35:00 98 /min [facility] Systolic blood pressure 2023-04-02 12:00:00 147 mm[Hg] [facility] Diastolic blood pressure 2023-04-02 12:00:00 97 mm[Hg] [facility] Heart rate 2023-04-02 12:00:00 106 /min [facility] Body temperature 2023-04-02 12:00:00 36.28 Radha [facility] Body height 2023-03-30 02:14:00 157.5 cm [facility] Body weight 2023-03-30 02:14:00 92.08 kg [facility] BMI 2023-03-30 02:14:00 37.13 kg/m2 [facility] Respiratory rate 2022-08-03 14:40:00 18 /min [facility] Systolic blood pressure 2022-08-03 12:13:00 112 mm[Hg] [facility] Diastolic blood pressure 2022-08-03 12:13:00 77 mm[Hg] [facility] Heart rate 2022-08-03 12:13:00 115 /min [facility] Oxygen saturation in Arterial blood by Pulse oximetry 2022-08-03 12:13:00 93 /min [facility] Body temperature 2022-08-03 12:00:00 36.83 Radha [facility] Body height 2022-08-02 21:52:00 160.2 cm [facility] Body weight 2022-08-02 21:52:00 95 kg [facility] BMI 2022-08-02 21:52:00 37.02 kg/m2 [facility] BP Systolic 2022-07-24 13:31:00 136 [...] Performing Clinician Source POCT-GLUCOSE METER 2023-09-08 08:40[facility] & AUTO DIFFERENTIAL 2023-09-08 04:16:00 Joshua [facility] BASIC METABOLIC PANEL 2023-09-08 04:16:00 Joshua [facility] MAGNESIUM 2023-09-08 04:16:00 Joshua [facility] PHOSPHORUS 2023-09-08 04:16:00 Joshua [facility] CBC W/PLT COUNT & AUTO DIFFERENTIAL 2023-09-08 04:16:00 Joshua [facility] POCT-GLUCOSE METER 2023-09-07 21:29:00 Bud [facility] XR KNEE 3 VIEWS LEFT 2023-09-07 19:21[facility] DOPPLER LEGS BILATERAL 2023-09-07 12:45:00 Joshua [facility] CBC W/PLT COUNT & AUTO DIFFERENTIAL 2023-09-07 03:17:00 Joshua [facility] BASIC METABOLIC PANEL 2023-09-07 03:17:00 Joshua [facility] MAGNESIUM 2023-09-07 03:17:00 Joshua [facility] PHOSPHORUS 2023-09-07 03:17:00 Joshua [facility] CBC W/PLT COUNT & AUTO DIFFERENTIAL 2023-09-07 03:17:00 Joshua [facility] POCT-GLUCOSE METER 2023-09-06 21:17:00 Bud [facility] POCT-GLUCOSE METER 2023-09-06 18:37:00 Bud [facility] POCT-GLUCOSE METER 2023-09-06 13:16:00 Bud [facility] POCT-GLUCOSE METER 2023-09-06 08:21:00 Bud [facility] CBC W/PLT COUNT & AUTO DIFFERENTIAL 2023-09-06 04:49:00 Joshua [facility] BASIC METABOLIC PANEL 2023-09-06 04:49:00 Joshua [facility] MAGNESIUM 2023-09-06 04:49:00 Joshua [facility] PHOSPHORUS 2023-09-06 04:49:00 Joshua [facility] CBC W/PLT COUNT & AUTO DIFFERENTIAL 2023-09-06 04:49:00 Joshua [facility] POCT-GLUCOSE METER 2023-09-05 21:24:00 Bud [facility] MR BRAIN WITH & WITHOUT IV CONTRAST 2023-09-05 11:25:07 Sandi Aleman [facility] POCT-GLUCOSE METER 2023-09-05 08:10:00 Bud [facility] CBC W/PLT COUNT & AUTO DIFFERENTIAL 2023-09-05 04:44:00 Joshua [facility] BASIC METABOLIC PANEL 2023-09-05 04:44:00 Joshua [facility] MAGNESIUM 2023-09-05 04:44:00 Joshua [facility] PHOSPHORUS 2023-09-05 04:44:00 Joshua [facility] POCT-GLUCOSE METER 2023-09-05 04:44:00 Lisandra [facility] CBC W/PLT COUNT & AUTO DIFFERENTIAL 2023-09-05 04:44:00 Joshua [facility] POCT-GLUCOSE METER 2023-09-04 21:38:00 Lisandra [facility] POCT-GLUCOSE METER 2023-09-04 15:42:[facility] SARS-COV2/INFLUENZA/RSV RT-PCR 2023-09-04 11:25:00 Uli [facility] POCT-GLUCOSE METER 2023-09-04 10:53:00 Sabas Pankaj [facility] POCT-GLUCOSE METER 2023-09-04 08:04:00 Ra Sabashul [facility] PROCALCITONIN 2023-09-04 06:56:00 Uli [facility] IRON, TIBC, % SAT. (WITHOUT FERRITIN) 2023-09-04 06:56:00 Uli [facility] FERRITIN 2023-09-04 06:56:00 Uli [facility] BLOOD CULTURE 2023-09-04 06:37:[address] [facility] LUMBAR SPINE WITHOUT IV CONTRAST 2023-09-04 05:47:25 Melvi [facility] MR THORACIC SPINE WITHOUT IV CONTRAST 2023-09-04 04:53:00 [facility] CERVICAL SPINE WITHOUT IV CONTRAST 2023-09-04 04:18:00 [place] [facility] CT THORACIC SPINE WITHOUT IV CONTRAST 2023-09-04 03:08:[address] LUMBAR SPINE WITHOUT IV CONTRAST 2023-09-04 03:08:[address] [facility] LACTIC ACID, VENOUS 2023-09-04 01:42:00 [facility] TYPE AND SCREEN, AUTOMATED 2023-09-04 01:42:00 [facility] CBC W/PLT COUNT & AUTO DIFFERENTIAL 2023-09-04 00:51:00 Melvi [facility] COMPREHENSIVE METABOLIC PANEL 2023-09-04 00:51:00 Melvi [facility] MAGNESIUM 2023-09-04 00:51:00 Melvi [facility] PHOSPHORUS 2023-09-04 00:51:00 Melvi [facility] PROTHROMBIN TIME/INR 2023-09-04 00:51:00 Melvi [facility] APTT 2023-09-04 00:51:00 Melvi [facility] B-TYPE NATRIURETIC FACTOR (BNP) 2023-09-04 00:51:00 Melvi [facility] URINALYSIS WITHOUT MICROSCOPIC 2023-09-04 00:51:00 Melvi [facility] RAPID DRUG SCREEN, URINE 2023-09-04 00:51:00 Melvi [facility] D-DIMER 2023-09-04 00:51:00 London Loyola [facility] FIBRINOGEN 2023-09-04 00:51:[address] [facility] CBC W/PLT COUNT & AUTO DIFFERENTIAL 2023-09-04 00:51:00 Melvi [facility] EKG-SCANNED 2023-09-04 00:00:00 Eliceo Montanez [facility] LACTIC ACID WHOLE BLOOD 2023-08-12 20:31:[address] [facility] COMP. METABOLIC PANEL (39922) 2023-08-12 20:29:[address] [facility] CBC WITH DIFF 2023-08-12 20:29:[address] CONSENT/REFUSAL FOR DIAGNOSI S AND TREATMENT 2023-08-12 19:43:16 Doctor Unassigned, [facility]ick[facility] TRANSESOPHAGEAL ECHO 2023-06-16 11:05:00 Torrey [facility] T SPOT TB 2023-06-15 04:51:00 Rossy [facility] FUNGITELL R B-D-GLUCAN WITH REFLEX TO TITER 2023-06-15 04:51:00 Rossy [facility] ASPERGILLUS GALACTOMANNAN ANTIGEN 2023-06-15 04:51:00 Rossy [facility] VANCOMYCIN LEVEL, TROUGH 2023-06-15 04:51:00 Kaylene Mendosa [facility] T-SPOT(R).TB (QUEST) 2023-06-15 04:27:00 System, Provider Not In [facility] T-SPOT(R).TB (QUEST) 2023-06-15 04:27:00 System, Provider Not In [facility] ECHO W CONTRAST & DOPPLER 2023-06-14 09:22:00 [facility] HEMOGLOBIN A1C 2023-06-14 04:08:00 Cara Burgess [facility] CBC (HEMOGRAM ONLY) 2023-06-14 04:08:00 [facility] BASIC METABOLIC PANEL 2023-06-14 04:08:00 [facility] CRYPTOCOCCAL ANTIGEN 2023-06-13 17:21:00 [facility]-1 AG W/HIV-1&2 AB 2023-06-13 17:21:00 Rossy [facility] VENOUS DOPPLER ARM, LEFT 2023-06-13 17:20:00 Cara Burgess [facility] LEGIONELLA ANTIGEN, URINE 2023-06-13 17:00[facility] + GRAM STAIN 2023-06-13 14:33:00 [facility] MR LUMBAR SPINE WITH & WITHOUT IV CONTRAST 2023-06-13 13:03:47 Burt Nelson [facility] ECG 12-LEAD 2023-06-13 11:47:02 Abbi [facility] ECG 12-LEAD 2023-06-13 11:47:02 Unknown, Hl7 [facility] ECG 12-LEAD 2023-06-13 11:47:02 Unknown, Hl7 [facility] MRSA SCREEN 2023-06-13 09:19:00 Abbi [facility] CBC W/PLT COUNT & AUTO DIFFERENTIAL 2023-06-13 06:03:00 Cara Burgess [facility] COMPREHENSIVE METABOLIC PANEL 2023-06-13 06:03:00 [facility] PROTHROMBIN TIME/INR 2023-06-13 06:03:00 [facility] CREATINE KINASE (CK) 2023-06-13 06:03:00 [facility] CBC W/PLT COUNT & AUTO DIFFERENTIAL 2023-06-13 06:03:00 [facility] BLOOD CULTURE 2023-06-13 06:02:00 DodieCara richardson [facility] CBC W/PLT COUNT & AUTO DIFFERENTIAL 2023-06-02 04:41:00 Sunil Chu [facility] BASIC METABOLIC PANEL 2023-06-02 04:41:00 Sunil Chu [facility] MAGNESIUM 2023-06-02 04:41:00 Sunil Chu [facility] PHOSPHORUS 2023-06-02 04:41:00 Sunil Chu [facility] CBC W/PLT COUNT & AUTO DIFFERENTIAL 2023-06-02 04:41:00 Sunil Chu [facility] XR SPINE LUMBAR 1 VIEW 2023-06-01 10:31:00 Adam Garcia [facility] XR SPINE LUMBAR 1 VIEW 2023-06-01 09:46:00 Adam Garcia [facility] LAMINECTOMY, SPINE, LUMBAR 2023-06-01 09:10:00 Jose Adam [facility] PROCEDURE W/ C-ARM 2023-06-01 09:10:00 [place] Adam [facility] LAMINECTOMY, SPINE, LUMBAR 2023-06-01 07:30:00 Jose[facility] PROCEDURE W/ C-ARM 2023-06-01 07:30:00 [place] Adam [facility] SCREEN, URINE 2023-06-01 04:33:00 [place] [facility] BASIC METABOLIC PANEL 2023-05-31 22:55:00 [facility] CBC W/PLT COUNT & AUTO DIFFERENTIAL 2023-05-31 22:55:00 [facility] PT/APTT 2023-05-31 22:55:00 [facility] CBC W/PLT COUNT & AUTO DIFFERENTIAL 2023-05-31 22:55:[address] [facility] [address] NECK SOFT TISSUE WITHOUT IV CONTRAST 2023-05-31 09:39:30 [facility] TYPE AND SCREEN, AUTOMATED 2023-05-31 09:13:00 [facility] BASIC METABOLIC PANEL 2023-05-29 06:43:00 [facility] CBC W/PLT COUNT & AUTO DIFFERENTIAL 2023-05-29 06:43:00 [facility] CBC W/PLT COUNT & AUTO DIFFERENTIAL 2023-05-29 06:43:00 [facility] XR SPINE CERVICAL 2 OR 3 VIEWS 2023-05-28 18:57[facility] FL FLUORO NON-SPECIFIC UP TO 1 HOUR 2023-05-28 10:48:00 Adam Garcia [facility] [place] FLUORO NON-SPECIFIC UP TO 1 HOUR 2023-05-28 10:07:00 Jose Adam [facility] DISCECTOMY, SPINE, CERVICAL, ANTERIOR APPROACH, WITH FUSION 2023-05-28 08:15:00 Jose Adam [facility] INSERTION, HARDWARE, SPINAL 2023-05-28 08:15:00 Jose [facility] PROCEDURE, ALLOGRAFT, FOR SPINE SURGERY 2023-05-28 08:15:00 Jose [facility] AUTOGRAFT FOR SPINE SURGERY 2023-05-28 08:15:00 [place] [facility] PROCEDURE W/ C-ARM 2023-05-28 08:15:00 [place] [facility] NEUROPHYSIOLOGIC MONITORING, INTRAOPERATIVE 2023-05-28 08:15:00 [place] [facility] PROCEDURE, USING OPERATING MICROSCOPE 2023-05-28 08:15:00 [place] [facility] HCG, QUANTITATIVE, 2023-05-28 07:42:00 Yue Bui [facility] TYPE AND SCREEN, AUTOMATED 2023-05-28 07:42:00 Ketan Scruggs [facility] XR CHEST 1 VIEW PORTABLE / BEDSIDE 2023-04-01 15:32:16 Valerio [facility] B-TYPE NATRIURETIC FACTOR (BNP) 2023-04-01 13:32:00 [facility] ECHO W CONTRAST & DOPPLER 2023-03-31 20:18:37 Jasen [facility] MR CERVICAL SPINE WITHOUT IV CONTRAST 2023-03-31 09:25:00 Selin Lewis [facility] CBC (HEMOGRAM ONLY) 2023-03-31 03:45:00 Jasen [facility] COMPREHENSIVE METABOLIC PANEL 2023-03-31 03:45:00 Jasen [facility] ARTERIAL DOPPLER LEGS BILATERAL 2023-03-30 15:45:00 Jasen [facility] ARTERIAL (ALEISHA'S W/ DOPPLER) ONLY 2023-03-30 15:44:00 Peteneena [facility] ECG 12-LEAD 2023-03-30 13:06:22 Jasen [facility] ECG 12-LEAD 2023-03-30 13:06:22 Unknown, Hl7 [facility] ECG 12-LEAD 2023-03-30 13:06:22 Unknown, Hl7 [facility] MR THORACIC SPINE WITHOUT IV CONTRAST 2023-03-30 12:29:58 Eric, [facility] MR LUMBAR SPINE WITHOUT IV CONTRAST 2023-03-30 11:58:00 Eric [facility] EEG AWAKE AND DROWSY 2023-03-30 09:57:53 [facility] VALPROIC ACID LEVEL, TOTAL 2023-03-30 09:06:00 Berry [facility] URINALYSIS W/ REFLEX URINE CULTURE 2023-03-30 03:54:00 Eric [facility] CBC (HEMOGRAM ONLY) 2023-03-30 [facility] 2023-03-30 03:52:00 [facility] HEMOGLOBIN A1C 2023-03-30 03:52:00 [facility] PT/APTT 2023-03-30 03:52:00 Thomas Lozoya [facility] EKG-SCANNED 2023-03-29 00:00:00 Provider, Default Scanning [facility] CT HEAD WO CONTRAST 2022-12-11 18:36:[address] [facility] URINE DRUG (IMMUNOASSAY) - COMPREHENSIVE DRUG SCREEN 2022-12-11 17:13:[address] [facility] URINALYSIS 2022-12-11 17:13:[address] [facility] CT CHEST PULMONARY ANGIOGRAM 2022-12-11 16:26:[address] [facility] MAGNESIUM 2022-12-11 14:57:[address] [facility] COMP. METABOLIC PANEL (74009) 2022-12-11 14:57:[address] [facility] D-DIMER 2022-12-11 14:15:[address] [facility] XR CHEST 1 VW 2022-12-11 14:10:[address] [facility] TROPONIN I 2022-12-11 14:02:[address] [facility] CBC WITH DIFF 2022-12-11 14:02:[address] [facility] N-TERMINAL PRO-BNP 2022-12-11 14:02:[address] [facility] HB ECG ROUTINE & RHYTHM STRIP 2022-12-11 14:01:[address] [facility] CONSENT/REFUSAL FOR DIAGNOSI S AND TREATMENT 2022-12-11 13:52:01 Doctor Unassigned, [facility] ECG 12-LEAD 2022-08-03 05:03:32 Unknown, Hl7 Doctor [facility] ECG 12-LEAD 2022-08-03 05:03:32 Unknown, Hl7 Doctor [facility] LIPID PANEL 2022-08-02 21:14:00 [facility] TSH/FREE T4 IF INDICATED 2022-08-02 21:14:00 [facility] VITAMIN B12 2022-08-02 21:14:00 [facility] HEMOGLOBIN A1C 2022-08-02 21:14:00 [facility] COMPREHENSIVE METABOLIC PANEL 2022-08-02 21:14:00 [facility] CBC W/PLT COUNT & AUTO DIFFERENTIAL 2022-08-02 21:14:00 [facility] RPR 2022-08-02 21:14:00 [facility] HC LAB HIV-1 AG W/HIV-1&2 AB 2022-08-02 21:14:00 Hightower Donaldo [facility] C-REACTIVE PROTEIN 2022-08-02 21:14:00 Donaldo Hightower [facility] CBC W/PLT COUNT & AUTO DIFFERENTIAL 2022-08-02 21:14:00 HightowerDonaldo [facility] EKG-SCANNED 2022-08-02 00:00:00 Provider, Default Scanning [facility] CT HEAD WO CONTRAST 2022-08-01 23:52:[address] [facility] GALV ONLY - INFLUENZA A B RS V PCR 2022-08-01 18:28:[address] [facility] TRANSTHORACIC ECHO (TTE) COMPLETE W/ CONTRAST 2022-08-01 14:42:00 [facility] 2022-08-01 10:42:00 Essence [facility] BASIC METABOLIC PANEL (NA, K , CL, CO2, GLUCOSE, BUN, CREATININE, CA) 2022-08-01 10:42:00 Essence [facility] CBC WITH DIFF 2022-08-01 10:42:00 Essence [facility] N-TERMINAL PRO-BNP 2022-08-01 10:42:00 [facility]SE (AUTOMATED) 2022-08-01 06:56:00 Essence [facility] CRITICAL CARE 2022-07-31 22:31:36 Alcon [facility] URINALYSIS 2022-07-31 20:52:00 Alcon [facility] URINE DRUG (IMMUNOASSAY) - COMPREHENSIVE DRUG SCREEN W/O REFLEX 2022-07-31 20:52:[address] [facility] XR CHEST 1 VW 2022-07-31 18:45:[address] [facility] LIPASE 2022-07-31 17:58:[address] [facility] TROPONIN I 2022-07-31 17:58:00 Alcon [facility] COMP. METABOLIC PANEL ([id number]) 2022-07-31 17:58:[address] [facility] CBC WITH DIFF 2022-07-31 17:58:[address] [facility] PROTHROMBIN TIME / INR 2022-07-31 17:58:[address] [facility] ACTIVATED PARTIAL THRMPLAS DAVID 2022-07-31 17:58:[address] [facility] N-TERMINAL PRO-BNP 2022-07-31 17:58:[address] [facility] HB ECG ROUTINE & RHYTHM STRIP 2022-07-31 17:46:[address] [facility] NOTICE OF PRIVACY PRACTICES 2022-07-31 17:35:38 Doctor Unassigned, [facility] CONSENT/REFUSAL FOR DIAGNOSI S AND TREATMENT 2022-07-31 17:35:13 Doctor Unassigned, [facility] PHOSPHORUS 2022-05-08 05:51:[address] [facility] MAGNESIUM 2022-05-08 05:51:00 Shefali [facility] BASIC METABOLIC PANEL (NA, K , CL, CO2, GLUCOSE, BUN, CREATININE, CA) 2022-05-08 05:51:00 Shefali [facility] CBC WITH DIFF 2022-05-08 05:51:00 Shefali [facility] BASIC METABOLIC PANEL (NA, K , CL, CO2, GLUCOSE, BUN, CREATININE, CA) 2022-05-07 07:09:[address] [facility] CBC WITH DIFF 2022-05-07 07:09:[address] [facility] POCT GLUCOSE (AUTOMATED) 2022-05-07 01:16:[address] [facility] HB ABO GROUPING 2022-05-06 05:07:[address] [facility] BASIC METABOLIC PANEL (NA, K , CL, CO2, GLUCOSE, BUN, CREATININE, CA) 2022-05-06 05:04:00 Shefali [facility] CBC WITH DIFF 2022-05-06 05:04:00 Shefali [facility] KEPPRA (LEVETIRACETAM) 2022-05-06 05:04:[address] [facility] MR LUMBAR SPINE WO CONTRAST 2022-05-06 02:54:37 Ender [facility] ELECTROENCEPHALOGRAM 2022-05-06 00:00:[address] [facility] BASIC METABOLIC PANEL (NA, K , CL, CO2, GLUCOSE, BUN, CREATININE, CA) 2022-05-05 07:57:00 [facility] 2022-05-05 07:57:00 Ismael Dunn [facility] PROTHROMBIN TIME / INR 2022-05-05 07:57:00 Ismael Dunn [facility] ACTIVATED PARTIAL THRMPLAS DAVID 2022-05-05 07:57:[address] [facility] FIBRINOGEN 2022-05-05 07:57:00 Ismael Dunn [facility] EMERGENCY SERVICES AGREEMENT S AND AUTHORIZATIONS 2022-05-04 05:01:00 Doctor Unassigned, [facility] [facility] VITAMIN D, 25-OH 2022-04-15 16:53:[address] [facility] MR THORACIC SPINE WO CONTRAST 2022-04-15 11:56:19 [facility] MR CERVICAL SPINE WO CONTRAST 2022-04-15 11:20:00 [facility] BASIC METABOLIC PANEL (NA, K , CL, CO2, GLUCOSE, BUN, CREATININE, CA) 2022-04-15 10:36:[address] [facility] TEST, URINE 2022-04-15 04:39:00 [facility] URINE DRUG (IMMUNOASSAY) - COMPREHENSIVE DRUG SCREEN 2022-04-15 04:39:00 [facility] URINALYSIS 2022-04-15 04:39:00 [facility] TRANSTHORACIC ECHO (TTE) COMPLETE W/ CONTRAST 2022-04-14 16:37:03 [facility] KEPPRA (LEVETIRACETAM) 2022-04-14 15:30:00 [facility] MAGNESIUM 2022-04-14 10:03:00 [facility] BASIC METABOLIC PANEL (NA, K , CL, CO2, GLUCOSE, BUN, CREATININE, CA) 2022-04-14 10:03:00 [facility] MR LUMBAR SPINE WO CONTRAST 2022-04-14 02:48:12 [facility] MR STROKE BRAIN WO CONTRAST 2022-04-14 02:29:00 [facility] CT STROKE ANGIOGRAM HEAD 2022-04-13 18:40:[address] [facility] CT STROKE ANGIOGRAM NECK 2022-04-13 18:40:[address] [facility] CT STROKE HEAD WO CONTRAST 2022-04-13 18:36:[address] [facility] TROPONIN I 2022-04-13 18:17:[address] [facility] THYROID STIMULATING HORMONE 2022-04-13 18:17:00 [facility] BASIC METABOLIC PANEL (NA, K , CL, CO2, GLUCOSE, BUN, CREATININE, CA) 2022-04-13 18:17:[address] [facility] LIPID PANEL ([id number])(TOTAL CHOLESTEROL, TRIGLYCERIDES, HDL) 2022-04-13 18:17:00 [facility] CBC WITHOUT DIFF 2022-04-13 18:17:[address] [facility] GLYCOSYLATED HEMOGLOBIN (A1C) 2022-04-13 18:17:00 [facility] PROTHROMBIN TIME / INR 2022-04-13 18:17:[address] [facility] ACTIVATED PARTIAL THRMPLAS DAVID 2022-04-13 18:17:[address] [facility] COVID-19 (ID NOW RAPID TESTING) 2022-04-13 18:17:[address] [facility] LAB ONLY COVID INTERPRETATION 2022-04-13 18:17:[address] [facility] HB ECG ROUTINE & RHYTHM STRIP 2022-04-13 18:15:[address] [facility] CONSENT/REFUSAL FOR DIAGNOSI S AND TREATMENT 2022-04-13 18:05:14 Doctor Unassigned, [facility] HOSPITAL ADMISSION 2022-04-13 05:01:00 Doctor Unassigned, [facility] SARS-COV-2 COVID-19 VACCINE 12 YRS+,0.3ML,IM (PFIZER - ROSE TOP) 2022-02-19 15:21:12 Doctor Unassigned, [facility] URINE DRUG (IMMUNOASSAY) - COMPREHENSIVE DRUG SCREEN W/O REFLEX 2021-11-23 21:21:[address] [facility] CT HEAD WO CONTRAST 2021-11-23 20:58:[address] [facility] POCT TEST 2021-11-23 20:46:[address] [facility] URINALYSIS 2021-11-23 20:43:[address] [facility] LIPASE 2021-11-23 20:27:[address] [facility] TROPONIN I 2021-11-23 20:27:[address] [facility] COMP. METABOLIC PANEL (02708) 2021-11-23 20:27:[address] [facility] CBC WITH DIFF 2021-11-23 20:27:[address] [facility] POCT GLUCOSE (AUTOMATED) 2021-11-23 20:15:00 Doctor Unassigned, [facility] SARS-COV-2 COVID-19 VACCINE,0.3ML,IM (PFIZER) 2021-05-24 14:23:12 Doctor Unassigned, [facility] SARS-COV-2 COVID-19 VACCINE,0.3ML,IM (PFIZER) 2021-05-03 14:59:29 Doctor Unassigned, [facility] EMERGENCY SERVICES AGREEMENT S AND AUTHORIZATIONS 2021-04-16 05:01:00 Doctor Unassigned, [facility] [facility] URINALYSIS 2021-03-17 03:09:[address] [facility] XR CHEST 1 VW 2021-03-17 01:45:[address] [facility] TROPONIN I 2021-03-17 01:35:[address] [facility] COMP. METABOLIC PANEL ([id number]) 2021-03-17 01:35:00 [facility] CBC WITH DIFF 2021-03-17 01:35:00 [facility] N-TERMINAL PRO-BNP 2021-03-17 01:35:00 [facility] COVID-19 (ID NOW RAPID TESTING) 2021-03-17 00:58:[address] [facility] CONSENT/REFUSAL FOR DIAGNOSI S AND TREATMENT 2021-03-17 00:32:59 Doctor Unassigned, [facility] [facility] COVID-19 (ID NOW RAPID TESTING) 2021-02-19 17:04:[address] [facility] CT ABDOMEN PELVIS W CONTRAST 2021-02-19 16:41:[address] [facility] LIPASE 2021-02-19 15:58:[address] [facility] COMP. METABOLIC PANEL ([id number]) 2021-02-19 15:58:[address] [facility] CBC WITH DIFF 2021-02-19 15:58:[address] [facility] URINALYSIS 2021-02-19 15:58:[address] [facility] NOTICE OF PRIVACY PRACTICES 2021-02-19 15:30:46 Doctor Unassigned, [facility] [facility] CONSENT/REFUSAL FOR DIAGNOSI S AND TREATMENT 2021-02-19 15:30:30 Doctor Unassigned, [facility] [facility] Plan of Care Planned Activity Planned Date Details Comments Source Future Scheduled Test 2025-08-02 00:00:00 Lipid panel (procedure) [code = 58335565] [facility] Future Scheduled Test 2025-08-02 00:00:00 Lipid panel (procedure) [code = 58494945] [facility] Future Scheduled Test 2025-08-02 00:00:00 Lipid panel (procedure) [code = 53539409] [facility] Future Scheduled Test 2025-08-02 00:00:00 Lipid panel (procedure) [code = 19095892] [facility] Future Scheduled Test 2025-08-02 00:00:00 Lipid panel (procedure) [code = 94270426] [facility] Future Scheduled Test 2025-08-02 00:00:00 Lipid panel (procedure) [code = 35743281] [facility] Future Scheduled Test 2025-08-02 00:00:00 Lipid panel (procedure) [code = 05277640] [facility] Future Scheduled Test 2025-08-02 00:00:00 Lipid panel (procedure) [code = 14486061] [facility] Future Scheduled Test 2025-08-02 00:00:00 Lipid panel (procedure) [code = 25418720] [facility] Future Scheduled Test 2025-08-02 00:00:00 Lipid panel (procedure) [code = 91702944] [facility] Future Scheduled Test 2025-08-02 00:00:00 Lipid panel (procedure) [code = 59950491] [facility] Future Scheduled Test 2025-08-02 00:00:00 Lipid panel (procedure) [code = 79841350] [facility] Future Scheduled Test 2025-08-02 00:00:00 Lipid panel (procedure) [code = 08068082] [facility] Future Scheduled Test 2025-08-02 00:00:00 Lipid panel (procedure) [code = 69233729] [facility] Future Scheduled Test 2025-08-02 00:00:00 Lipid panel (procedure) [code = 89402347] [facility] Future Scheduled Test 2025-08-02 00:00:00 Lipid panel (procedure) [code = 13768621] [facility] Future Scheduled Test 2025-08-02 00:00:00 Lipid panel (procedure) [code = 27884487] [facility] Future Scheduled Test 2025-08-02 00:00:00 Lipid panel (procedure) [code = 51367051] [facility] Future Scheduled Test 2025-08-02 00:00:00 Lipid panel (procedure) [code = 42728675] [facility] Future Scheduled Test 2025-08-02 00:00:00 Lipid panel (procedure) [code = 08109548] [facility] Future Scheduled Test 2025-08-02 00:00:00 Lipid panel (procedure) [code = 20962311] [facility] Future Scheduled Test 2025-08-02 00:00:00 Lipid panel (procedure) [code = 35861649] [facility] Future Scheduled Test 2025-08-02 00:00:00 Lipid panel (procedure) [code = 36834568] [facility] Future Scheduled Test 2025-08-02 00:00:00 Lipid panel (procedure) [code = 42509395] [facility] Future Scheduled Test 2025-08-02 00:00:00 Lipid panel (procedure) [code = 86589694] [facility] Future Scheduled Test 2025-08-02 00:00:00 Lipid panel (procedure) [code = 98706632] [facility] Future Scheduled Test 2025-08-02 00:00:00 Lipid panel (procedure) [code = 76384025] [facility] Future Scheduled Test 2025-08-02 00:00:00 Lipid panel (procedure) [code = 93648893] [facility] Future Scheduled Test 2025-08-02 00:00:00 Lipid panel (procedure) [code = 64137083] [facility] Future Scheduled Test 2025-08-02 00:00:00 Lipid panel (procedure) [code = 79651628] [facility] Future Scheduled Test 2025-08-02 00:00:00 Lipid panel (procedure) [code = 62614985] [facility] Future Scheduled Test 2025-08-02 00:00:00 Lipid panel (procedure) [code = 73894601] [facility] Future Scheduled Test 2025-08-02 00:00:00 Lipid panel (procedure) [code = 88420818] [facility] Future Scheduled Test 2025-08-02 00:00:00 Lipid panel (procedure) [code = 95343109] [facility] Future Scheduled Test 2025-08-02 00:00:00 Lipid panel (procedure) [code = 33995552] [facility] Future Scheduled Test 2025-08-02 00:00:00 Lipid panel (procedure) [code = 67160922] [facility] Future Scheduled Test 2025-08-02 00:00:00 Lipid panel (procedure) [code = 47559176] [facility] Future Scheduled Test 2025-08-02 00:00:00 Lipid panel (procedure) [code = 42616927] [facility] Future Scheduled Test 2025-08-02 00:00:00 Lipid panel (procedure) [code = 63380597] [facility] Future Scheduled Test 2025-08-02 00:00:00 Lipid panel (procedure) [code = 95846307] [facility] Future Scheduled Test 2025-08-02 00:00:00 Lipid panel (procedure) [code = 80076700] [facility] Future Scheduled Test 2025-08-02 00:00:00 Lipid panel (procedure) [code = 78917298] [facility] Future Scheduled Test 2025-08-02 00:00:00 Lipid panel (procedure) [code = 86618549] [facility] Future Scheduled Test 2025-08-02 00:00:00 Lipid panel (procedure) [code = 11501981] [facility] Future Scheduled Test 2025-08-02 00:00:00 Lipid panel (procedure) [code = 54685617] [facility] Future Scheduled Test 2025-08-02 00:00:00 Lipid panel (procedure) [code = 94862545] [facility] Future Scheduled Test 2025-08-02 00:00:00 Lipid panel (procedure) [code = 93470023] [facility] Future Scheduled Test 2025-08-02 00:00:00 Lipid panel (procedure) [code = 98319377] [facility] Future Scheduled Test 2025-08-02 00:00:00 Lipid panel (procedure) [code = 53460059] [facility] Future Scheduled Test 2025-08-02 00:00:00 Lipid panel (procedure) [code = 50282246] [facility] Future Scheduled Test 2025-08-02 00:00:00 Lipid panel (procedure) [code = 08050282] [facility] Future Scheduled Test 2025-08-02 00:00:00 Lipid panel (procedure) [code = 95298862] [facility] Future Scheduled Test 2025-08-02 00:00:00 Lipid panel (procedure) [code = 55950055] [facility] Future Scheduled Test 2025-08-02 00:00:00 Lipid panel (procedure) [code = 57833068] [facility] Future Scheduled Test 2025-08-02 00:00:00 Lipid panel (procedure) [code = 20722634] [facility] Future Scheduled Test 2025-08-02 00:00:00 Lipid panel (procedure) [code = 14872753] [facility] Future Scheduled Test 2025-08-02 00:00:00 Lipid panel (procedure) [code = 47844828] [facility] Future Scheduled Test 2025-08-02 00:00:00 Lipid panel (procedure) [code = 71153428] [facility] Future Scheduled Test 2025-08-02 00:00:00 Lipid panel (procedure) [code = 81304858] [facility] Future Scheduled Test 2025-08-02 00:00:00 Lipid panel (procedure) [code = 14092734] [facility] Future Scheduled Test 2025-08-02 00:00:00 Lipid panel (procedure) [code = 84724614] [facility] Future Scheduled Test 2025-08-02 00:00:00 Lipid panel (procedure) [code = 40156570] [facility] Future Scheduled Test 2025-08-02 00:00:00 Lipid panel (procedure) [code = 06673621] [facility] Future Scheduled Test 2025-08-02 00:00:00 Lipid panel (procedure) [code = 84308985] [facility] Future Scheduled Test 2025-08-02 00:00:00 Lipid panel (procedure) [code = [id number]] [facility] Scheduled Test 2025-08-02 00:00:00 Lipid panel (procedure) [code = 53859338] [facility] Future Scheduled Test 2025-08-02 00:00:00 Lipid panel (procedure) [code = 04534569] [facility] Future Scheduled Test 2025-08-02 00:00:00 Lipid panel (procedure) [code = 13184988] [facility] Future Scheduled Test 2025-08-02 00:00:00 Lipid panel (procedure) [code = 01232904] [facility] Future Scheduled Test 2025-08-02 00:00:00 Lipid panel (procedure) [code = 15097225] [facility] Scheduled Test 2024-05-28 00:00:00 Tobacco Cessation Counseling and Screening (12+) [code = Tobacco Cessation Counseling and Screening (12+)] [facility] Scheduled Test 2024-05-28 00:00:00 Tobacco Cessation Counseling and Screening (12+) [code = Tobacco Cessation Counseling and Screening (12+)] [facility] Scheduled Test 2024-05-28 00:00:00 Tobacco Cessation Counseling and Screening (12+) [code = Tobacco Cessation Counseling and Screening (12+)] [facility] Scheduled Test 2024-05-28 00:00:00 Tobacco Cessation Counseling and Screening (12+) [code = Tobacco Cessation Counseling and Screening (12+)] [facility] Scheduled Test 2024-05-28 00:00:00 Tobacco Cessation Counseling and Screening (12+) [code = Tobacco Cessation Counseling and Screening (12+)] [facility] Scheduled Test 2024-05-28 00:00:00 Tobacco Cessation Counseling and Screening (12+) [code = Tobacco Cessation Counseling and Screening (12+)] [facility] Scheduled Test 2024-05-28 00:00:00 Tobacco Cessation Counseling and Screening (12+) [code = Tobacco Cessation Counseling and Screening (12+)] [facility] Future Scheduled Test 2024-05-28 00:00:00 Tobacco Cessation Counseling and Screening (12+) [code = Tobacco Cessation Counseling and Screening (12+)] [facility] Scheduled Test 2024-05-28 00:00:00 Tobacco Cessation Counseling and Screening (12+) [code = Tobacco Cessation Counseling and Screening (12+)] [facility] Scheduled Test 2024-05-28 00:00:00 Tobacco Cessation Counseling and Screening (12+) [code = Tobacco Cessation Counseling and Screening (12+)] [facility] Scheduled Test 2024-05-28 00:00:00 Tobacco Cessation Counseling and Screening (12+) [code = Tobacco Cessation Counseling and Screening (12+)] [facility] Scheduled Test 2024-05-28 00:00:00 Tobacco Cessation Counseling and Screening (12+) [code = Tobacco Cessation Counseling and Screening (12+)] [facility] Scheduled Test 2024-05-28 00:00:00 Tobacco Cessation Counseling and Screening (12+) [code = Tobacco Cessation Counseling and Screening (12+)] [facility] Scheduled Test 2024-05-28 00:00:00 Tobacco Cessation Counseling and Screening (12+) [code = Tobacco Cessation Counseling and Screening (12+)] [facility] Scheduled Test 2024-05-28 00:00:00 Tobacco Cessation Counseling and Screening (12+) [code = Tobacco Cessation Counseling and Screening (12+)] [facility] Scheduled Test 2024-05-28 00:00:00 Tobacco Cessation Counseling and Screening (12+) [code = Tobacco Cessation Counseling and Screening (12+)] [facility] Scheduled Test 2024-05-28 00:00:00 Tobacco Cessation Counseling and Screening (12+) [code = Tobacco Cessation Counseling and Screening (12+)] [facility] Scheduled Test 2024-05-28 00:00:00 Tobacco Cessation Counseling and Screening (12+) [code = Tobacco Cessation Counseling and Screening (12+)] [facility] Scheduled Test 2024-05-28 00:00:00 Tobacco Cessation Counseling and Screening (12+) [code = Tobacco Cessation Counseling and Screening (12+)] [facility] Future Scheduled Test 2024-05-28 00:00:00 Tobacco Cessation Counseling and Screening (12+) [code = Tobacco Cessation Counseling and Screening (12+)] [facility] Scheduled Test 2024-05-28 00:00:00 Tobacco Cessation Counseling and Screening (12+) [code = Tobacco Cessation Counseling and Screening (12+)] [facility] Scheduled Test 2024-05-28 00:00:00 Tobacco Cessation Counseling and Screening (12+) [code = Tobacco Cessation Counseling and Screening (12+)] [facility] Scheduled Test 2024-05-28 00:00:00 Tobacco Cessation Counseling and Screening (12+) [code = Tobacco Cessation Counseling and Screening (12+)] [facility] Scheduled Test 2024-05-28 00:00:00 Tobacco Cessation Counseling and Screening (12+) [code = Tobacco Cessation Counseling and Screening (12+)] [facility] Scheduled Test 2024-05-28 00:00:00 Tobacco Cessation Counseling and Screening (12+) [code = Tobacco Cessation Counseling and Screening (12+)] [facility] Scheduled Test 2024-05-28 00:00:00 Tobacco Cessation Counseling and Screening (12+) [code = Tobacco Cessation Counseling and Screening (12+)] [facility] Scheduled Test 2024-05-28 00:00:00 Tobacco Cessation Counseling and Screening (12+) [code = Tobacco Cessation Counseling and Screening (12+)] [facility] Future Scheduled Test 2024-05-28 00:00:00 Tobacco Cessation Counseling and Screening (12+) [code = Tobacco Cessation Counseling and Screening (12+)] [facility] Scheduled Test 2024-05-28 00:00:00 Tobacco Cessation Counseling and Screening (12+) [code = Tobacco Cessation Counseling and Screening (12+)] [facility] Scheduled Test 2024-05-28 00:00:00 Tobacco Cessation Counseling and Screening (12+) [code = Tobacco Cessation Counseling and Screening (12+)] [facility] Scheduled Test 2024-05-28 00:00:00 Tobacco Cessation Counseling and Screening (12+) [code = Tobacco Cessation Counseling and Screening (12+)] [facility] Future Scheduled Test 2024-05-28 00:00:00 Tobacco Cessation Counseling and Screening (12+) [code = Tobacco Cessation Counseling and Screening (12+)] [facility] Scheduled Test 2024-05-28 00:00:00 Tobacco Cessation Counseling and Screening (12+) [code = Tobacco Cessation Counseling and Screening (12+)] [facility] Scheduled Test 2024-05-28 00:00:00 Tobacco Cessation Counseling and Screening (12+) [code = Tobacco Cessation Counseling and Screening (12+)] [facility] Scheduled Test 2024-05-28 00:00:00 Tobacco Cessation Counseling and Screening (12+) [code = Tobacco Cessation Counseling and Screening (12+)] [facility] Scheduled Test 2024-05-28 00:00:00 Tobacco Cessation Counseling and Screening (12+) [code = Tobacco Cessation Counseling and Screening (12+)] [facility] Scheduled Test 2024-05-28 00:00:00 Tobacco Cessation Counseling and Screening (12+) [code = Tobacco Cessation Counseling and Screening (12+)] [facility] Scheduled Test 2024-05-28 00:00:00 Tobacco Cessation Counseling and Screening (12+) [code = Tobacco Cessation Counseling and Screening (12+)] [facility] Scheduled Test 2024-05-28 00:00:00 Tobacco Cessation Counseling and Screening (12+) [code = Tobacco Cessation Counseling and Screening (12+)] [facility] Future Scheduled Test 2024-05-28 00:00:00 Tobacco Cessation Counseling and Screening (12+) [code = Tobacco Cessation Counseling and Screening (12+)] [facility] Scheduled Test 2024-05-28 00:00:00 Tobacco Cessation Counseling and Screening (12+) [code = Tobacco Cessation Counseling and Screening (12+)] [facility] Scheduled Test 2024-05-28 00:00:00 Tobacco Cessation Counseling and Screening (12+) [code = Tobacco Cessation Counseling and Screening (12+)] [facility] Scheduled Test 2024-05-28 00:00:00 Tobacco Cessation Counseling and Screening (12+) [code = Tobacco Cessation Counseling and Screening (12+)] [facility] Future Scheduled Test 2024-05-28 00:00:00 Tobacco Cessation Counseling and Screening (12+) [code = Tobacco Cessation Counseling and Screening (12+)] [facility] Future Scheduled Test 2024-05-28 00:00:00 Tobacco Cessation Counseling and Screening (12+) [code = Tobacco Cessation Counseling and Screening (12+)] [facility] Future Scheduled Test 2024-05-26 00:00:00 Tobacco Cessation Counseling and Screening (12+) [code = Tobacco Cessation Counseling and Screening (12+)] [facility] Future Scheduled Test 2024-05-26 00:00:00 Tobacco Cessation Counseling and Screening (12+) [code = Tobacco Cessation Counseling and Screening (12+)] [facility] Future Scheduled Test 2024-03-20 00:00:00 Influenza Vaccine (Season Ended) [code = Influenza Vaccine (Season Ended)] [facility] Future Scheduled Test 2024-03-20 00:00:00 Influenza Vaccine (Season Ended) [code = Influenza Vaccine (Season Ended)] [facility] Future Scheduled Test 2024-03-20 00:00:00 Influenza Vaccine (Season Ended) [code = Influenza Vaccine (Season Ended)] [facility] Future Scheduled Test 2024-03-20 00:00:00 Influenza Vaccine (Season Ended) [code = Influenza Vaccine (Season Ended)] [facility] Future Scheduled Test 2024-03-20 00:00:00 Influenza Vaccine (Season Ended) [code = Influenza Vaccine (Season Ended)] [facility] Future Scheduled Test 2024-03-20 00:00:00 Influenza Vaccine (Season Ended) [code = Influenza Vaccine (Season Ended)] [facility] Future Scheduled Test 2024-03-20 00:00:00 Influenza Vaccine (Season Ended) [code = Influenza Vaccine (Season Ended)] [facility] Future Scheduled Test 2024-03-20 00:00:00 Influenza Vaccine (Season Ended) [code = Influenza Vaccine (Season Ended)] [facility] Future Scheduled Test 2024-03-20 00:00:00 Influenza Vaccine (Season Ended) [code = Influenza Vaccine (Season Ended)] [facility] [facility]:00:00 Influenza Vaccine (Season Ended) [code = Influenza Vaccine (Season Ended)] [facility] Scheduled Test 2023-07-20 00:00:00 DEPRESSION SCREENING (12+) [code = DEPRESSION SCREENING (12+)] [facility] Scheduled Test 2023-07-20 00:00:00 DEPRESSION SCREENING (12+) [code = DEPRESSION SCREENING (12+)] [facility] Scheduled Test 2023-07-20 00:00:00 DEPRESSION SCREENING (12+) [code = DEPRESSION SCREENING (12+)] [facility] Scheduled Test 2023-07-20 00:00:00 DEPRESSION SCREENING (12+) [code = DEPRESSION SCREENING (12+)] [facility] Scheduled Test 2023-07-20 00:00:00 DEPRESSION SCREENING (12+) [code = DEPRESSION SCREENING (12+)] [facility] Future Scheduled Test 2023-07-20 00:00:00 DEPRESSION SCREENING (12+) [code = DEPRESSION SCREENING (12+)] [facility] Scheduled Test 2023-07-20 00:00:00 DEPRESSION SCREENING (12+) [code = DEPRESSION SCREENING (12+)] [facility] Future Scheduled Test 2023-07-20 00:00:00 DEPRESSION SCREENING (12+) [code = DEPRESSION SCREENING (12+)] [facility] Future Scheduled Test 2023-07-20 00:00:00 DEPRESSION SCREENING (12+) [code = DEPRESSION SCREENING (12+)] [facility] Scheduled Test 2023-07-20 00:00:00 DEPRESSION SCREENING (12+) [code = DEPRESSION SCREENING (12+)] [facility] Scheduled Test 2023-07-20 00:00:00 DEPRESSION SCREENING (12+) [code = DEPRESSION SCREENING (12+)] [facility] Scheduled Test 2023-07-20 00:00:00 DEPRESSION SCREENING (12+) [code = DEPRESSION SCREENING (12+)] [facility] Future Scheduled Test 2023-07-20 00:00:00 DEPRESSION SCREENING (12+) [code = DEPRESSION SCREENING (12+)] [facility] Future Scheduled Test 2023-07-20 00:00:00 DEPRESSION SCREENING (12+) [code = DEPRESSION SCREENING (12+)] [facility] Scheduled Test 2023-07-20 00:00:00 DEPRESSION SCREENING (12+) [code = DEPRESSION SCREENING (12+)] [facility] Scheduled Test 2023-07-20 00:00:00 DEPRESSION SCREENING (12+) [code = DEPRESSION SCREENING (12+)] [facility] Scheduled Test 2023-07-20 00:00:00 DEPRESSION SCREENING (12+) [code = DEPRESSION SCREENING (12+)] [facility] Scheduled Test 2023-07-20 00:00:00 DEPRESSION SCREENING (12+) [code = DEPRESSION SCREENING (12+)] [facility] Future Scheduled Test 2023-07-20 00:00:00 DEPRESSION SCREENING (12+) [code = DEPRESSION SCREENING (12+)] [facility] Future Scheduled Test 2023-07-20 00:00:00 DEPRESSION SCREENING (12+) [code = DEPRESSION SCREENING (12+)] [facility] Future Scheduled Test 2023-07-20 00:00:00 DEPRESSION SCREENING (12+) [code = DEPRESSION SCREENING (12+)] [facility] Future Scheduled Test 2023-07-20 00:00:00 DEPRESSION SCREENING (12+) [code = DEPRESSION SCREENING (12+)] [facility] Scheduled Test 2023-07-20 00:00:00 DEPRESSION SCREENING (12+) [code = DEPRESSION SCREENING (12+)] [facility] Future Scheduled Test 2023-07-20 00:00:00 DEPRESSION SCREENING (12+) [code = DEPRESSION SCREENING (12+)] [facility] Scheduled Test 2023-07-20 00:00:00 DEPRESSION SCREENING (12+) [code = DEPRESSION SCREENING (12+)] [facility] Scheduled Test 2023-07-20 00:00:00 DEPRESSION SCREENING (12+) [code = DEPRESSION SCREENING (12+)] [facility] Scheduled Test 2023-07-20 00:00:00 DEPRESSION SCREENING (12+) [code = DEPRESSION SCREENING (12+)] [facility] Scheduled Test 2023-07-20 00:00:00 DEPRESSION SCREENING (12+) [code = DEPRESSION SCREENING (12+)] [facility] Scheduled Test 2023-07-20 00:00:00 DEPRESSION SCREENING (12+) [code = DEPRESSION SCREENING (12+)] [facility] Future Scheduled Test 2023-07-20 00:00:00 DEPRESSION SCREENING (12+) [code = DEPRESSION SCREENING (12+)] [facility] Future Scheduled Test 2023-07-20 00:00:00 DEPRESSION SCREENING (12+) [code = DEPRESSION SCREENING (12+)] [facility] Future Scheduled Test 2023-07-20 00:00:00 DEPRESSION SCREENING (12+) [code = DEPRESSION SCREENING (12+)] [facility] Future Scheduled Test 2023-07-20 00:00:00 DEPRESSION SCREENING (12+) [code = DEPRESSION SCREENING (12+)] [facility] Future Scheduled Test 2023-07-20 00:00:00 DEPRESSION SCREENING (12+) [code = DEPRESSION SCREENING (12+)] [facility] Scheduled Test 2023-07-20 00:00:00 DEPRESSION SCREENING (12+) [code = DEPRESSION SCREENING (12+)] [facility] Scheduled Test 2023-07-20 00:00:00 DEPRESSION SCREENING (12+) [code = DEPRESSION SCREENING (12+)] [facility] Scheduled Test 2023-07-20 00:00:00 DEPRESSION SCREENING (12+) [code = DEPRESSION SCREENING (12+)] [facility] Scheduled Test 2023-03-20 00:00:00 INFLUENZA VACCINE (Season Ended) [code = INFLUENZA VACCINE (Season Ended)] [facility] Scheduled Test 2023-03-20 00:00:00 INFLUENZA VACCINE (Season Ended) [code = INFLUENZA VACCINE (Season Ended)] [facility] Scheduled Test 2023-03-20 00:00:00 INFLUENZA VACCINE (Season Ended) [code = INFLUENZA VACCINE (Season Ended)] [facility] Scheduled Test 2023-03-20 00:00:00 INFLUENZA VACCINE (Season Ended) [code = INFLUENZA VACCINE (Season Ended)] [facility] Scheduled Test 2023-03-20 00:00:00 INFLUENZA VACCINE (Season Ended) [code = INFLUENZA VACCINE (Season Ended)] [facility] Scheduled Test 2023-03-20 00:00:00 INFLUENZA VACCINE (Season Ended) [code = INFLUENZA VACCINE (Season Ended)] [facility] Scheduled Test 2023-03-20 00:00:00 Influenza Vaccine (Season Ended) [code = Influenza Vaccine (Season Ended)] [facility] Scheduled Test 2023-03-20 00:00:00 Influenza Vaccine (Season Ended) [code = Influenza Vaccine (Season Ended)] [facility] Scheduled Test 2023-03-20 00:00:00 Influenza Vaccine (#1) [code = Influenza Vaccine (#1)] [facility] Scheduled Test 2023-03-20 00:00:00 Influenza Vaccine (#1) [code = Influenza Vaccine (#1)] [facility] Scheduled Test 2023-03-20 00:00:00 Influenza Vaccine (#1) [code = Influenza Vaccine (#1)] [facility] Scheduled Test 2023-03-20 00:00:00 Influenza Vaccine (#1) [code = Influenza Vaccine (#1)] [facility] Scheduled Test 2023-03-20 00:00:00 COVID-19 VACCINE ( season) [code = COVID-19 VACCINE ( season)] [facility] Scheduled Test 2023-03-20 00:00:00 Influenza Vaccine (#1) [code = Influenza Vaccine (#1)] [facility] Scheduled Test 2023-03-20 00:00:00 COVID-19 VACCINE ( season) [code = COVID-19 VACCINE ( season)] [facility] Scheduled Test 2023-03-20 00:00:00 Influenza Vaccine (#1) [code = Influenza Vaccine (#1)] [facility] Scheduled Test 2023-03-20 00:00:00 COVID-19 VACCINE ( season) [code = COVID-19 VACCINE ()] [facility] Scheduled Test 2023-03-20 00:00:00 Influenza Vaccine (#1) [code = Influenza Vaccine (#1)] [facility] Scheduled Test 2023-03-20 00:00:00 COVID-19 VACCINE ( season) [code = COVID-19 VACCINE ()] [facility] Scheduled Test 2023-03-20 00:00:00 Influenza Vaccine (#1) [code = Influenza Vaccine (#1)] [facility] Scheduled Test 2023-03-20 00:00:00 Influenza Vaccine (#1) [code = Influenza Vaccine (#1)] [facility] Scheduled Test 2023-03-20 00:00:00 COVID-19 VACCINE ( season) [code = COVID-19 VACCINE ()] [facility] Scheduled Test 2023-03-20 00:00:00 Influenza Vaccine (#1) [code = Influenza Vaccine (#1)] [facility] Scheduled Test 2023-03-20 00:00:00 COVID-19 VACCINE ( season) [code = COVID-19 VACCINE ()] [facility] Scheduled Test 2023-03-20 00:00:00 Influenza Vaccine (#1) [code = Influenza Vaccine (#1)] [facility] Scheduled Test 2023-03-20 00:00:00 COVID-19 VACCINE ( season) [code = COVID-19 VACCINE ( season)] [facility] Scheduled Test 2023-03-20 00:00:00 Influenza Vaccine (#1) [code = Influenza Vaccine (#1)] [facility] Scheduled Test 2023-03-20 00:00:00 COVID-19 VACCINE ( season) [code = COVID-19 VACCINE ( season)] [facility] Scheduled Test 2023-03-20 00:00:00 Influenza Vaccine (#1) [code = Influenza Vaccine (#1)] [facility] Scheduled Test 2023-03-20 00:00:00 COVID-19 VACCINE ( season) [code = COVID-19 VACCINE ()] [facility] Scheduled Test 2023-03-20 00:00:00 Influenza Vaccine (#1) [code = Influenza Vaccine (#1)] [facility] Scheduled Test 2023-03-20 00:00:00 COVID-19 VACCINE ( season) [code = COVID-19 VACCINE ()] [facility] Scheduled Test 2023-03-20 00:00:00 Influenza Vaccine (#1) [code = Influenza Vaccine (#1)] [facility] Scheduled Test 2023-03-20 00:00:00 COVID-19 VACCINE ( season) [code = COVID-19 VACCINE ()] [facility] Scheduled Test 2023-03-20 00:00:00 Influenza Vaccine (#1) [code = Influenza Vaccine (#1)] [facility] Scheduled Test 2023-03-20 00:00:00 Influenza Vaccine (#1) [code = Influenza Vaccine (#1)] [facility] Scheduled Test 2023-03-20 00:00:00 COVID-19 VACCINE ( season) [code = COVID-19 VACCINE ( season)] [facility] Scheduled Test 2023-03-20 00:00:00 Influenza Vaccine (#1) [code = Influenza Vaccine (#1)] [facility] Scheduled Test 2023-03-20 00:00:00 COVID-19 VACCINE ( season) [code = COVID-19 VACCINE ()] [facility] Scheduled Test 2023-03-20 00:00:00 Influenza Vaccine (#1) [code = Influenza Vaccine (#1)] [facility] Scheduled Test 2023-03-20 00:00:00 COVID-19 VACCINE ( season) [code = COVID-19 VACCINE ( season)] [facility] Scheduled Test 2023-03-20 00:00:00 Influenza Vaccine (#1) [code = Influenza Vaccine (#1)] [facility] Scheduled Test 2023-03-20 00:00:00 COVID-19 VACCINE ( season) [code = COVID-19 VACCINE ()] [facility] Scheduled Test 2023-03-20 00:00:00 Influenza Vaccine (#1) [code = Influenza Vaccine (#1)] [facility] Scheduled Test 2023-03-20 00:00:00 COVID-19 VACCINE ( season) [code = COVID-19 VACCINE ()] [facility] Scheduled Test 2023-03-20 00:00:00 Influenza Vaccine (#1) [code = Influenza Vaccine (#1)] [facility] Scheduled Test 2023-03-20 00:00:00 COVID-19 VACCINE ( season) [code = COVID-19 VACCINE ( season)] [facility] Scheduled Test 2023-03-20 00:00:00 Influenza Vaccine (#1) [code = Influenza Vaccine (#1)] [facility] Scheduled Test 2023-03-20 00:00:00 Influenza Vaccine (#1) [code = Influenza Vaccine (#1)] [facility] Scheduled Test 2023-03-20 00:00:00 COVID-19 VACCINE ( season) [code = COVID-19 VACCINE ( season)] [facility] Scheduled Test 2023-03-20 00:00:00 Influenza Vaccine (#1) [code = Influenza Vaccine (#1)] [facility] Scheduled Test 2023-03-20 00:00:00 COVID-19 VACCINE ( season) [code = COVID-19 VACCINE ( season)] [facility] Scheduled Test 2023-03-20 00:00:00 Influenza Vaccine (#1) [code = Influenza Vaccine (#1)] [facility] Scheduled Test 2023-03-20 00:00:00 COVID-19 VACCINE ( season) [code = COVID-19 VACCINE ()] [facility] Scheduled Test 2023-03-20 00:00:00 Influenza Vaccine (#1) [code = Influenza Vaccine (#1)] [facility] Scheduled Test 2023-03-20 00:00:00 COVID-19 VACCINE () [code = COVID-19 VACCINE ()] [facility] Scheduled Test 2023-03-20 00:00:00 Influenza Vaccine (#1) [code = Influenza Vaccine (#1)] [facility] Scheduled Test 2023-03-20 00:00:00 Influenza Vaccine (#1) [code = Influenza Vaccine (#1)] [facility] Scheduled Test 2023-03-20 00:00:00 COVID-19 VACCINE ( season) [code = COVID-19 VACCINE ()] [facility] Scheduled Test 2023-03-20 00:00:00 Influenza Vaccine (#1) [code = Influenza Vaccine (#1)] [facility] Scheduled Test 2023-03-20 00:00:00 COVID-19 VACCINE ( season) [code = COVID-19 VACCINE ( season)] [facility] Scheduled Test 2023-03-20 00:00:00 Influenza Vaccine (#1) [code = Influenza Vaccine (#1)] [facility] Scheduled Test 2023-03-20 00:00:00 COVID-19 VACCINE ( season) [code = COVID-19 VACCINE ( season)] [facility] Scheduled Test 2023-03-20 00:00:00 Influenza Vaccine (#1) [code = Influenza Vaccine (#1)] [facility] Scheduled Test 2023-03-20 00:00:00 COVID-19 VACCINE ( season) [code = COVID-19 VACCINE ()] [facility] Scheduled Test 2023-03-20 00:00:00 Influenza Vaccine (#1) [code = Influenza Vaccine (#1)] [facility] Scheduled Test 2023-03-20 00:00:00 COVID-19 VACCINE ( season) [code = COVID-19 VACCINE ()] [facility] Scheduled Test 2023-03-20 00:00:00 Influenza Vaccine (#1) [code = Influenza Vaccine (#1)] [facility] Scheduled Test 2023-03-20 00:00:00 COVID-19 VACCINE () [code = COVID-19 VACCINE ()] [facility] Scheduled Test 2023-03-20 00:00:00 Influenza Vaccine (#1) [code = Influenza Vaccine (#1)] [facility] Scheduled Test 2023-03-20 00:00:00 Influenza Vaccine (#1) [code = Influenza Vaccine (#1)] [facility] Scheduled Test 2023-03-20 00:00:00 COVID-19 VACCINE ( season) [code = COVID-19 VACCINE ()] [facility] Scheduled Test 2023-03-20 00:00:00 Influenza Vaccine (#1) [code = Influenza Vaccine (#1)] [facility] Scheduled Test 2023-03-20 00:00:00 COVID-19 VACCINE (4 - 2023-24 season) [code = COVID-19 VACCINE ( season)] [facility] Scheduled Test 2023-03-20 00:00:00 Influenza Vaccine (#1) [code = Influenza Vaccine (#1)] [facility] Scheduled Test 2023-03-20 00:00:00 COVID-19 VACCINE () [code = COVID-19 VACCINE ()] [facility] Scheduled Test 2023-03-20 00:00:00 COVID-19 VACCINE () [code = COVID-19 VACCINE ()] [facility] Scheduled Test 2023-03-20 00:00:00 COVID-19 VACCINE () [code = COVID-19 VACCINE ()] [facility] Future Scheduled Test 2023-03-20 00:00:00 COVID-19 VACCINE () [code = COVID-19 VACCINE ()] [facility] Scheduled Test 2023-03-20 00:00:00 COVID-19 VACCINE () [code = COVID-19 VACCINE ()] [facility] Scheduled Test 2023-03-20 00:00:00 COVID-19 VACCINE () [code = COVID-19 VACCINE ()] [facility] Scheduled Test 2023-03-20 00:00:00 Influenza Vaccine (#1) [code = Influenza Vaccine (#1)] [facility] Scheduled Test 2023-03-20 00:00:00 COVID-19 VACCINE ( season) [code = COVID-19 VACCINE ()] [facility] Scheduled Test 2023-03-20 00:00:00 COVID-19 VACCINE () [code = COVID-19 VACCINE ()] [facility] Scheduled Test 2023-03-20 00:00:00 COVID-19 VACCINE ( season) [code = COVID-19 VACCINE ( season)] [facility] Scheduled Test 2023-03-20 00:00:00 COVID-19 VACCINE ( season) [code = COVID-19 VACCINE ()] [facility] Scheduled Test 2023-03-20 00:00:00 Influenza Vaccine (#1) [code = Influenza Vaccine (#1)] [facility] Scheduled Test 2023-03-20 00:00:00 Influenza Vaccine (#1) [code = Influenza Vaccine (#1)] [facility] Scheduled Test 2023-03-20 00:00:00 Influenza Vaccine (#1) [code = Influenza Vaccine (#1)] [facility] Scheduled Test 2023-03-20 00:00:00 Influenza Vaccine (#1) [code = Influenza Vaccine (#1)] [facility] Scheduled Test 2023-03-20 00:00:00 Influenza Vaccine (#1) [code = Influenza Vaccine (#1)] [facility] Scheduled Test 2023-03-20 00:00:00 Influenza Vaccine (#1) [code = Influenza Vaccine (#1)] [facility] Scheduled Test 2023-03-20 00:00:00 Influenza Vaccine (#1) [code = Influenza Vaccine (#1)] [facility] Scheduled Test 2023-03-20 00:00:00 Influenza Vaccine (#1) [code = Influenza Vaccine (#1)] [facility] Scheduled Test 2023-03-20 00:00:00 Influenza Vaccine (#1) [code = Influenza Vaccine (#1)] [facility] Scheduled Test 2023-03-20 00:00:00 COVID-19 VACCINE ( season) [code = COVID-19 VACCINE ()] [facility] Scheduled Test 2022-07-20 00:00:00 DEPRESSION SCREENING (12+) [code = DEPRESSION SCREENING (12+)] [facility] Scheduled Test 2022-07-20 00:00:00 DEPRESSION SCREENING (12+) [code = DEPRESSION SCREENING (12+)] [facility] Scheduled Test 2022-07-20 00:00:00 DEPRESSION SCREENING (12+) [code = DEPRESSION SCREENING (12+)] [facility] Scheduled Test 2022-07-20 00:00:00 DEPRESSION SCREENING (12+) [code = DEPRESSION SCREENING (12+)] [facility] Scheduled Test 2022-07-20 00:00:00 DEPRESSION SCREENING (12+) [code = DEPRESSION SCREENING (12+)] [facility] Scheduled Test 2022-07-20 00:00:00 DEPRESSION SCREENING (12+) [code = DEPRESSION SCREENING (12+)] [facility] Scheduled Test 2022-07-20 00:00:00 DEPRESSION SCREENING (12+) [code = DEPRESSION SCREENING (12+)] [facility] Scheduled Test 2022-07-20 00:00:00 DEPRESSION SCREENING (12+) [code = DEPRESSION SCREENING (12+)] [facility] Scheduled Test 2022-07-20 00:00:00 DEPRESSION SCREENING (12+) [code = DEPRESSION SCREENING (12+)] [facility] Scheduled Test 2022-07-20 00:00:00 DEPRESSION SCREENING (12+) [code = DEPRESSION SCREENING (12+)] [facility] Future Scheduled Test 2022-07-20 00:00:00 DEPRESSION SCREENING (12+) [code = DEPRESSION SCREENING (12+)] [facility] Scheduled Test 2022-07-20 00:00:00 DEPRESSION SCREENING (12+) [code = DEPRESSION SCREENING (12+)] [facility] Scheduled Test 2022-07-20 00:00:00 DEPRESSION SCREENING (12+) [code = DEPRESSION SCREENING (12+)] [facility] Scheduled Test 2022-07-20 00:00:00 DEPRESSION SCREENING (12+) [code = DEPRESSION SCREENING (12+)] [facility] Scheduled Test 2022-07-20 00:00:00 DEPRESSION SCREENING (12+) [code = DEPRESSION SCREENING (12+)] [facility] Scheduled Test 2022-07-20 00:00:00 DEPRESSION SCREENING (12+) [code = DEPRESSION SCREENING (12+)] [facility] Scheduled Test 2022-07-20 00:00:00 DEPRESSION SCREENING (12+) [code = DEPRESSION SCREENING (12+)] [facility] Scheduled Test 2022-07-20 00:00:00 DEPRESSION SCREENING (12+) [code = DEPRESSION SCREENING (12+)] [facility] Scheduled Test 2022-07-20 00:00:00 DEPRESSION SCREENING (12+) [code = DEPRESSION SCREENING (12+)] [facility] Scheduled Test 2022-07-20 00:00:00 DEPRESSION SCREENING (12+) [code = DEPRESSION SCREENING (12+)] [facility] Scheduled Test 2022-07-20 00:00:00 DEPRESSION SCREENING (12+) [code = DEPRESSION SCREENING (12+)] [facility] Scheduled Test 2022-07-20 00:00:00 DEPRESSION SCREENING (12+) [code = DEPRESSION SCREENING (12+)] [facility] Scheduled Test 2022-07-20 00:00:00 DEPRESSION SCREENING (12+) [code = DEPRESSION SCREENING (12+)] [facility] Scheduled Test 2022-07-20 00:00:00 DEPRESSION SCREENING (12+) [code = DEPRESSION SCREENING (12+)] [facility] Scheduled Test 2022-07-20 00:00:00 DEPRESSION SCREENING (12+) [code = DEPRESSION SCREENING (12+)] [facility] Scheduled Test 2022-07-20 00:00:00 DEPRESSION SCREENING (12+) [code = DEPRESSION SCREENING (12+)] [facility] Scheduled Test 2022-07-20 00:00:00 DEPRESSION SCREENING (12+) [code = DEPRESSION SCREENING (12+)] [facility] Scheduled Test 2022-07-20 00:00:00 DEPRESSION SCREENING (12+) [code = DEPRESSION SCREENING (12+)] [facility] Scheduled Test 2022-07-20 00:00:00 DEPRESSION SCREENING (12+) [code = DEPRESSION SCREENING (12+)] [facility] Scheduled Test 2022-07-20 00:00:00 DEPRESSION SCREENING (12+) [code = DEPRESSION SCREENING (12+)] [facility] Scheduled Test 2022-07-20 00:00:00 DEPRESSION SCREENING (12+) [code = DEPRESSION SCREENING (12+)] [facility] Scheduled Test 2022-07-20 00:00:00 DEPRESSION SCREENING (12+) [code = DEPRESSION SCREENING (12+)] [facility] Scheduled Test 2022-07-20 00:00:00 DEPRESSION SCREENING (12+) [code = DEPRESSION SCREENING (12+)] [facility] Scheduled Test 2022-06-21 00:00:00 COVID-19 VACCINE (4 - Booster for Pfizer series) [code = COVID-19 VACCINE (4 - Booster for Pfizer series)] [facility] Scheduled Test 2022-06-21 00:00:00 COVID-19 VACCINE (4 - Booster for Pfizer series) [code = COVID-19 VACCINE (4 - Booster for Pfizer series)] [facility] Scheduled Test 2022-06-21 00:00:00 COVID-19 VACCINE (4 - Booster for Pfizer series) [code = COVID-19 VACCINE (4 - Booster for Pfizer series)] [facility] Scheduled Test 2022-06-21 00:00:00 COVID-19 VACCINE (4 - Booster for Pfizer series) [code = COVID-19 VACCINE (4 - Booster for Pfizer series)] [facility] Future Scheduled Test 2022-04-16 00:00:00 COVID-19 VACCINE (4 - Booster for Pfizer series) [code = COVID-19 VACCINE (4 - Booster for Pfizer series)] [facility] Scheduled Test 2022-04-16 00:00:00 COVID-19 VACCINE (4 - Booster for Pfizer series) [code = COVID-19 VACCINE (4 - Booster for Pfizer series)] [facility] Scheduled Test 2022-04-16 00:00:00 COVID-19 VACCINE (4 - Booster for Pfizer series) [code = COVID-19 VACCINE (4 - Booster for Pfizer series)] [facility] Scheduled Test 2022-04-16 00:00:00 COVID-19 VACCINE (4 - Booster for Pfizer series) [code = COVID-19 VACCINE (4 - Booster for Pfizer series)] [facility] Scheduled Test 2022-04-16 00:00:00 COVID-19 VACCINE (4 - Booster for Pfizer series) [code = COVID-19 VACCINE (4 - Booster for Pfizer series)] [facility] Scheduled Test 2022-04-16 00:00:00 COVID-19 VACCINE (4 - Booster for Pfizer series) [code = COVID-19 VACCINE (4 - Booster for Pfizer series)] [facility] [facility] 00:00:00 COVID-19 VACCINE (4 - Booster for Pfizer series) [code = COVID-19 VACCINE (4 - Booster for Pfizer series)] [facility] Scheduled Test 2022-04-16 00:00:00 COVID-19 VACCINE (4 - Booster for Pfizer series) [code = COVID-19 VACCINE (4 - Booster for Pfizer series)] [facility] Scheduled Test 2022-04-16 00:00:00 COVID-19 VACCINE (4 - Booster for Pfizer series) [code = COVID-19 VACCINE (4 - Booster for Pfizer series)] [facility] Scheduled Test 2022-04-16 00:00:00 COVID-19 VACCINE (4 - Booster for Pfizer series) [code = COVID-19 VACCINE (4 - Booster for Pfizer series)] [facility] Scheduled Test 2022-04-16 00:00:00 COVID-19 VACCINE (4 - Booster for Pfizer series) [code = COVID-19 VACCINE (4 - Booster for Pfizer series)] [facility] Scheduled Test 2022-04-16 00:00:00 COVID-19 VACCINE (4 - Booster for Pfizer series) [code = COVID-19 VACCINE (4 - Booster for Pfizer series)] [facility] Scheduled Test 2022-04-16 00:00:00 COVID-19 VACCINE (4 - Booster for Pfizer series) [code = COVID-19 VACCINE (4 - Booster for Pfizer series)] [facility] Scheduled Test 2022-04-16 00:00:00 COVID-19 VACCINE (4 - Booster for Pfizer series) [code = COVID-19 VACCINE (4 - Booster for Pfizer series)] [facility] Scheduled Test 2022-04-16 00:00:00 COVID-19 VACCINE (4 - Booster for Pfizer series) [code = COVID-19 VACCINE (4 - Booster for Pfizer series)] [facility] Scheduled Test 2022-04-16 00:00:00 COVID-19 VACCINE (4 - Booster for Pfizer series) [code = COVID-19 VACCINE (4 - Booster for Pfizer series)] [facility] Scheduled Test 2022-04-16 00:00:00 COVID-19 VACCINE (4 - Booster for Pfizer series) [code = COVID-19 VACCINE (4 - Booster for Pfizer series)] [facility] Scheduled Test 2022-04-16 00:00:00 COVID-19 VACCINE (4 - Booster for Pfizer series) [code = COVID-19 VACCINE (4 - Booster for Pfizer series)] [facility] Scheduled Test 2022-04-16 00:00:00 COVID-19 VACCINE (4 - Booster for Pfizer series) [code = COVID-19 VACCINE (4 - Booster for Pfizer series)] [facility] Scheduled Test 2022-04-16 00:00:00 COVID-19 VACCINE (4 - Booster for Pfizer series) [code = COVID-19 VACCINE (4 - Booster for Pfizer series)] [facility] Scheduled Test 2022-04-16 00:00:00 COVID-19 VACCINE (4 - Pfizer series) [code = COVID-19 VACCINE (4 - Pfizer series)] [facility] Scheduled Test 2022-04-16 00:00:00 COVID-19 VACCINE (4 - Pfizer series) [code = COVID-19 VACCINE (4 - Pfizer series)] [facility] Scheduled Test 2022-04-16 00:00:00 COVID-19 VACCINE (4 - Pfizer series) [code = COVID-19 VACCINE (4 - Pfizer series)] [facility] Scheduled Test 2022-04-16 00:00:00 COVID-19 VACCINE (4 - Pfizer series) [code = COVID-19 VACCINE (4 - Pfizer series)] [facility] Scheduled Test 2022-04-16 00:00:00 COVID-19 VACCINE (4 - Booster for Pfizer series) [code = COVID-19 VACCINE (4 - Booster for Pfizer series)] [facility] Scheduled Test 2022-04-16 00:00:00 COVID-19 VACCINE (4 - Pfizer series) [code = COVID-19 VACCINE (4 - Pfizer series)] [facility] Scheduled Test 2022-03-20 00:00:00 INFLUENZA VACCINE (#1) [code = INFLUENZA VACCINE (#1)] [facility] Scheduled Test 2022-03-20 00:00:00 INFLUENZA VACCINE (#1) [code = INFLUENZA VACCINE (#1)] [facility] Scheduled Test 2022-03-20 00:00:00 INFLUENZA VACCINE (#1) [code = INFLUENZA VACCINE (#1)] [facility] Scheduled Test 2022-03-20 00:00:00 INFLUENZA VACCINE (#1) [code = INFLUENZA VACCINE (#1)] [facility] Scheduled Test 2022-01-14 00:00:00 SHINGLES VACCINES (1 of 2) [code = SHINGLES VACCINES (1 of 2)] [facility] Scheduled Test 2022-01-14 00:00:00 SHINGLES VACCINES (1 of 2) [code = SHINGLES VACCINES (1 of 2)] [facility] Scheduled Test 2022-01-14 00:00:00 SHINGLES VACCINES (1 of 2) [code = SHINGLES VACCINES (1 of 2)] [facility] Scheduled Test 2022-01-14 00:00:00 SHINGLES VACCINES (1 of 2) [code = SHINGLES VACCINES (1 of 2)] [facility] Scheduled Test 2022-01-14 00:00:00 SHINGLES VACCINES (1 of 2) [code = SHINGLES VACCINES (1 of 2)] [facility] Scheduled Test 2022-01-14 00:00:00 SHINGLES VACCINES (1 of 2) [code = SHINGLES VACCINES (1 of 2)] [facility] Scheduled Test 2022-01-14 00:00:00 SHINGLES VACCINES (1 of 2) [code = SHINGLES VACCINES (1 of 2)] [facility] Scheduled Test 2022-01-14 00:00:00 SHINGLES VACCINES (1 of 2) [code = SHINGLES VACCINES (1 of 2)] [facility] Scheduled Test 2022-01-14 00:00:00 SHINGLES VACCINES (1 of 2) [code = SHINGLES VACCINES (1 of 2)] [facility] Scheduled Test 2022-01-14 00:00:00 SHINGLES VACCINES (1 of 2) [code = SHINGLES VACCINES (1 of 2)] [facility] Scheduled Test 2022-01-14 00:00:00 SHINGLES VACCINES (1 of 2) [code = SHINGLES VACCINES (1 of 2)] [facility] Scheduled Test 2022-01-14 00:00:00 SHINGLES VACCINES (1 of 2) [code = SHINGLES VACCINES (1 of 2)] [facility] Scheduled Test 2022-01-14 00:00:00 SHINGLES VACCINES (1 of 2) [code = SHINGLES VACCINES (1 of 2)] [facility] Scheduled Test 2022-01-14 00:00:00 SHINGLES VACCINES (1 of 2) [code = SHINGLES VACCINES (1 of 2)] [facility] Scheduled Test 2022-01-14 00:00:00 SHINGLES VACCINES (1 of 2) [code = SHINGLES VACCINES (1 of 2)] [facility] Scheduled Test 2022-01-14 00:00:00 Screening for malignant neoplasm of lung (procedure) [code = [id number]] [facility] Scheduled Test 2022-01-14 00:00:00 SHINGLES VACCINES (1 of 2) [code = SHINGLES VACCINES (1 of 2)] [facility] Scheduled Test 2022-01-14 00:00:00 Screening for malignant neoplasm of lung (procedure) [code = [id number]] [facility] Scheduled Test 2022-01-14 00:00:00 SHINGLES VACCINES (1 of 2) [code = SHINGLES VACCINES (1 of 2)] [facility] Scheduled Test 2022-01-14 00:00:00 Screening for malignant neoplasm of lung (procedure) [code = [id number]] [facility] Scheduled Test 2022-01-14 00:00:00 SHINGLES VACCINES (1 of 2) [code = SHINGLES VACCINES (1 of 2)] [facility] Scheduled Test 2022-01-14 00:00:00 Screening for malignant neoplasm of lung (procedure) [code = [id number]] [facility] Scheduled Test 2022-01-14 00:00:00 SHINGLES VACCINES (1 of 2) [code = SHINGLES VACCINES (1 of 2)] [facility] Scheduled Test 2022-01-14 00:00:00 Screening for malignant neoplasm of lung (procedure) [code = [id number]] [facility] Scheduled Test 2022-01-14 00:00:00 SHINGLES VACCINES (1 of 2) [code = SHINGLES VACCINES (1 of 2)] [facility] Scheduled Test 2022-01-14 00:00:00 Screening for malignant neoplasm of lung (procedure) [code = [id number]] [facility] Scheduled Test 2022-01-14 00:00:00 SHINGLES VACCINES (1 of 2) [code = SHINGLES VACCINES (1 of 2)] [facility] Scheduled Test 2022-01-14 00:00:00 Screening for malignant neoplasm of lung (procedure) [code = [id number]] [facility] Scheduled Test 2022-01-14 00:00:00 SHINGLES VACCINES (1 of 2) [code = SHINGLES VACCINES (1 of 2)] [facility] Scheduled Test 2022-01-14 00:00:00 Screening for malignant neoplasm of lung (procedure) [code = 900707562] [facility] Scheduled Test 2022-01-14 00:00:00 SHINGLES VACCINES (1 of 2) [code = SHINGLES VACCINES (1 of 2)] [facility] Scheduled Test 2022-01-14 00:00:00 Screening for malignant neoplasm of lung (procedure) [code = [id number]] [facility] Scheduled Test 2022-01-14 00:00:00 SHINGLES VACCINES (1 of 2) [code = SHINGLES VACCINES (1 of 2)] [facility] Scheduled Test 2022-01-14 00:00:00 Screening for malignant neoplasm of lung (procedure) [code = 119720711] [facility] Scheduled Test 2022-01-14 00:00:00 SHINGLES VACCINES (1 of 2) [code = SHINGLES VACCINES (1 of 2)] [facility] Scheduled Test 2022-01-14 00:00:00 Screening for malignant neoplasm of lung (procedure) [code = 176057335] [facility] Scheduled Test 2022-01-14 00:00:00 SHINGLES VACCINES (1 of 2) [code = SHINGLES VACCINES (1 of 2)] [facility] Scheduled Test 2022-01-14 00:00:00 Screening for malignant neoplasm of lung (procedure) [code = [id number]] [facility] Scheduled Test 2022-01-14 00:00:00 SHINGLES VACCINES (1 of 2) [code = SHINGLES VACCINES (1 of 2)] [facility] Scheduled Test 2022-01-14 00:00:00 Screening for malignant neoplasm of lung (procedure) [code = [id number]] [facility] Scheduled Test 2022-01-14 00:00:00 SHINGLES VACCINES (1 of 2) [code = SHINGLES VACCINES (1 of 2)] [facility] Scheduled Test 2022-01-14 00:00:00 Screening for malignant neoplasm of lung (procedure) [code = 484331541] [facility] Scheduled Test 2022-01-14 00:00:00 SHINGLES VACCINES (1 of 2) [code = SHINGLES VACCINES (1 of 2)] [facility] Scheduled Test 2022-01-14 00:00:00 Screening for malignant neoplasm of lung (procedure) [code = [id number]] [facility] Scheduled Test 2022-01-14 00:00:00 SHINGLES VACCINES (1 of 2) [code = SHINGLES VACCINES (1 of 2)] [facility] Scheduled Test 2022-01-14 00:00:00 Screening for malignant neoplasm of lung (procedure) [code = [id number]] [facility] Scheduled Test 2022-01-14 00:00:00 SHINGLES VACCINES (1 of 2) [code = SHINGLES VACCINES (1 of 2)] [facility] Scheduled Test 2022-01-14 00:00:00 Screening for malignant neoplasm of lung (procedure) [code = 722428226] [facility] Scheduled Test 2022-01-14 00:00:00 SHINGLES VACCINES (1 of 2) [code = SHINGLES VACCINES (1 of 2)] [facility] Scheduled Test 2022-01-14 00:00:00 Screening for malignant neoplasm of lung (procedure) [code = [id number]] [facility] Scheduled Test 2022-01-14 00:00:00 SHINGLES VACCINES (1 of 2) [code = SHINGLES VACCINES (1 of 2)] [facility] Scheduled Test 2022-01-14 00:00:00 Screening for malignant neoplasm of lung (procedure) [code = 523608063] [facility] Scheduled Test 2022-01-14 00:00:00 Screening for malignant neoplasm of lung (procedure) [code = 099433695] [facility] Scheduled Test 2022-01-14 00:00:00 SHINGLES VACCINES (1 of 2) [code = SHINGLES VACCINES (1 of 2)] [facility] Scheduled Test 2022-01-14 00:00:00 SHINGLES VACCINES (1 of 2) [code = SHINGLES VACCINES (1 of 2)] [facility] Scheduled Test 2022-01-14 00:00:00 Screening for malignant neoplasm of lung (procedure) [code = 427268440] [facility] Scheduled Test 2022-01-14 00:00:00 SHINGLES VACCINES (1 of 2) [code = SHINGLES VACCINES (1 of 2)] [facility] Scheduled Test 2022-01-14 00:00:00 Screening for malignant neoplasm of lung (procedure) [code = 412109725] [facility] Scheduled Test 2022-01-14 00:00:00 SHINGLES VACCINES (1 of 2) [code = SHINGLES VACCINES (1 of 2)] [facility] Scheduled Test 2022-01-14 00:00:00 Screening for malignant neoplasm of lung (procedure) [code = 496359211] [facility] Scheduled Test 2022-01-14 00:00:00 SHINGLES VACCINES (1 of 2) [code = SHINGLES VACCINES (1 of 2)] [facility] Scheduled Test 2022-01-14 00:00:00 Screening for malignant neoplasm of lung (procedure) [code = 888464759] [facility] Scheduled Test 2022-01-14 00:00:00 Screening for malignant neoplasm of lung (procedure) [code = 408521374] [facility] Scheduled Test 2022-01-14 00:00:00 SHINGLES VACCINES (1 of 2) [code = SHINGLES VACCINES (1 of 2)] [facility] Scheduled Test 2022-01-14 00:00:00 SHINGLES VACCINES (1 of 2) [code = SHINGLES VACCINES (1 of 2)] [facility] Scheduled Test 2022-01-14 00:00:00 Screening for malignant neoplasm of lung (procedure) [code = 097862283] [facility] Scheduled Test 2022-01-14 00:00:00 SHINGLES VACCINES (1 of 2) [code = SHINGLES VACCINES (1 of 2)] [facility] Scheduled Test 2022-01-14 00:00:00 Screening for malignant neoplasm of lung (procedure) [code = 393927583] [facility] Scheduled Test 2022-01-14 00:00:00 SHINGLES VACCINES (1 of 2) [code = SHINGLES VACCINES (1 of 2)] [facility] Scheduled Test 2022-01-14 00:00:00 Screening for malignant neoplasm of lung (procedure) [code = 740203226] [facility] Scheduled Test 2022-01-14 00:00:00 SHINGLES VACCINES (1 of 2) [code = SHINGLES VACCINES (1 of 2)] [facility] Scheduled Test 2022-01-14 00:00:00 Screening for malignant neoplasm of lung (procedure) [code = 022460532] [facility] Scheduled Test 2022-01-14 00:00:00 SHINGLES VACCINES (1 of 2) [code = SHINGLES VACCINES (1 of 2)] [facility] Scheduled Test 2022-01-14 00:00:00 Screening for malignant neoplasm of lung (procedure) [code = 419566985] [facility] Scheduled Test 2022-01-14 00:00:00 SHINGLES VACCINES (1 of 2) [code = SHINGLES VACCINES (1 of 2)] [facility] Scheduled Test 2022-01-14 00:00:00 Screening for malignant neoplasm of lung (procedure) [code = [id number]] [facility] Scheduled Test 2022-01-14 00:00:00 Screening for malignant neoplasm of lung (procedure) [code = 498871345] [facility] Scheduled Test 2022-01-14 00:00:00 SHINGLES VACCINES (1 of 2) [code = SHINGLES VACCINES (1 of 2)] [facility] Scheduled Test 2022-01-14 00:00:00 SHINGLES VACCINES (1 of 2) [code = SHINGLES VACCINES (1 of 2)] [facility] Scheduled Test 2022-01-14 00:00:00 Screening for malignant neoplasm of lung (procedure) [code = 082576815] [facility] Scheduled Test 2022-01-14 00:00:00 SHINGLES VACCINES (1 of 2) [code = SHINGLES VACCINES (1 of 2)] [facility] Scheduled Test 2022-01-14 00:00:00 Screening for malignant neoplasm of lung (procedure) [code = 209045445] [facility] Scheduled Test 2022-01-14 00:00:00 SHINGLES VACCINES (1 of 2) [code = SHINGLES VACCINES (1 of 2)] [facility] Scheduled Test 2022-01-14 00:00:00 Screening for malignant neoplasm of lung (procedure) [code = 101547743] [facility] Scheduled Test 2022-01-14 00:00:00 SHINGLES VACCINES (1 of 2) [code = SHINGLES VACCINES (1 of 2)] [facility] Scheduled Test 2022-01-14 00:00:00 Screening for malignant neoplasm of lung (procedure) [code = 345093642] [facility] Scheduled Test 2022-01-14 00:00:00 SHINGLES VACCINES (1 of 2) [code = SHINGLES VACCINES (1 of 2)] [facility] Scheduled Test 2022-01-14 00:00:00 Screening for malignant neoplasm of lung (procedure) [code = 882930401] [facility] Scheduled Test 2022-01-14 00:00:00 SHINGLES VACCINES (1 of 2) [code = SHINGLES VACCINES (1 of 2)] [facility] Scheduled Test 2022-01-14 00:00:00 Screening for malignant neoplasm of lung (procedure) [code = 097881443] [facility] Scheduled Test 2022-01-14 00:00:00 SHINGLES VACCINES (1 of 2) [code = SHINGLES VACCINES (1 of 2)] [facility] Scheduled Test 2022-01-14 00:00:00 Screening for malignant neoplasm of lung (procedure) [code = 741548594] [facility] Scheduled Test 2022-01-14 00:00:00 SHINGLES VACCINES (1 of 2) [code = SHINGLES VACCINES (1 of 2)] [facility] Scheduled Test 2022-01-14 00:00:00 Screening for malignant neoplasm of lung (procedure) [code = 084156444] [facility] Scheduled Test 2022-01-14 00:00:00 SHINGLES VACCINES (1 of 2) [code = SHINGLES VACCINES (1 of 2)] [facility] Scheduled Test 2022-01-14 00:00:00 Screening for malignant neoplasm of lung (procedure) [code = 270578187] [facility] Scheduled Test 2022-01-14 00:00:00 SHINGLES VACCINES (1 of 2) [code = SHINGLES VACCINES (1 of 2)] [facility] Scheduled Test 2022-01-14 00:00:00 Screening for malignant neoplasm of lung (procedure) [code = 173378397] [facility] Scheduled Test 2022-01-14 00:00:00 SHINGLES VACCINES (1 of 2) [code = SHINGLES VACCINES (1 of 2)] [facility] Scheduled Test 2022-01-14 00:00:00 Screening for malignant neoplasm of lung (procedure) [code = 682139155] [facility] Scheduled Test 2022-01-14 00:00:00 SHINGLES VACCINES (1 of 2) [code = SHINGLES VACCINES (1 of 2)] [facility] Scheduled Test 2022-01-14 00:00:00 Screening for malignant neoplasm of lung (procedure) [code = 409809611] [facility] Scheduled Test 2022-01-14 00:00:00 SHINGLES VACCINES (1 of 2) [code = SHINGLES VACCINES (1 of 2)] [facility] Scheduled Test 2022-01-14 00:00:00 Screening for malignant neoplasm of lung (procedure) [code = 988003502] [facility] Scheduled Test 2022-01-14 00:00:00 SHINGLES VACCINES (1 of 2) [code = SHINGLES VACCINES (1 of 2)] [facility] Scheduled Test 2022-01-14 00:00:00 Screening for malignant neoplasm of lung (procedure) [code = 038292775] [facility] Scheduled Test 2022-01-14 00:00:00 SHINGLES VACCINES (1 of 2) [code = SHINGLES VACCINES (1 of 2)] [facility] Scheduled Test 2022-01-14 00:00:00 SHINGLES VACCINES (1 of 2) [code = SHINGLES VACCINES (1 of 2)] [facility] Scheduled Test 2022-01-14 00:00:00 SHINGLES VACCINES (1 of 2) [code = SHINGLES VACCINES (1 of 2)] [facility] Scheduled Test 2022-01-14 00:00:00 Screening for malignant neoplasm of lung (procedure) [code = 951384856] [facility] Scheduled Test 2022-01-14 00:00:00 SHINGLES VACCINES (1 of 2) [code = SHINGLES VACCINES (1 of 2)] [facility] Scheduled Test 2022-01-14 00:00:00 Screening for malignant neoplasm of lung (procedure) [code = 229561700] [facility] Scheduled Test 2022-01-14 00:00:00 SHINGLES VACCINES (1 of 2) [code = SHINGLES VACCINES (1 of 2)] [facility] Scheduled Test 2022-01-14 00:00:00 Screening for malignant neoplasm of lung (procedure) [code = 586282966] [facility] Scheduled Test 2022-01-14 00:00:00 SHINGLES VACCINES (1 of 2) [code = SHINGLES VACCINES (1 of 2)] [facility] Scheduled Test 2022-01-14 00:00:00 Screening for malignant neoplasm of lung (procedure) [code = 051151437] [facility] Scheduled Test 2022-01-14 00:00:00 SHINGLES VACCINES (1 of 2) [code = SHINGLES VACCINES (1 of 2)] [facility] Scheduled Test 2022-01-14 00:00:00 Screening for malignant neoplasm of lung (procedure) [code = 968470629] [facility] Scheduled Test 2022-01-14 00:00:00 SHINGLES VACCINES (1 of 2) [code = SHINGLES VACCINES (1 of 2)] [facility] Scheduled Test 2022-01-14 00:00:00 Screening for malignant neoplasm of lung (procedure) [code = 347066475] [facility] Scheduled Test 2022-01-14 00:00:00 SHINGLES VACCINES (1 of 2) [code = SHINGLES VACCINES (1 of 2)] [facility] Scheduled Test 2022-01-14 00:00:00 Screening for malignant neoplasm of lung (procedure) [code = 348542578] [facility] Scheduled Test 2022-01-14 00:00:00 SHINGLES VACCINES (1 of 2) [code = SHINGLES VACCINES (1 of 2)] [facility] Scheduled Test 2013-12-15 00:00:00 PNEUMOCOCCAL VACCINE 0-64 YRS (2 - PCV) [code = PNEUMOCOCCAL VACCINE 0-64 YRS (2 - PCV)] [facility] Scheduled Test 2013-12-15 00:00:00 PNEUMOCOCCAL VACCINE 0-64 YRS (2 - PCV) [code = PNEUMOCOCCAL VACCINE 0-64 YRS (2 - PCV)] [facility] Scheduled Test 2013-12-15 00:00:00 PNEUMOCOCCAL VACCINE 0-64 YRS (2 - PCV) [code = PNEUMOCOCCAL VACCINE 0-64 YRS (2 - PCV)] [facility] Scheduled Test 2013-12-15 00:00:00 PNEUMOCOCCAL VACCINE 0-64 YRS (2 - PCV) [code = PNEUMOCOCCAL VACCINE 0-64 YRS (2 - PCV)] [facility] Scheduled Test 2013-12-15 00:00:00 Pneumococcal Vaccine: 0-64 Years (2 - PCV) [code = Pneumococcal Vaccine: 0-64 Years (2 - PCV)] [facility] Scheduled Test 2013-12-15 00:00:00 Pneumococcal Vaccine: 0-64 Years (2 - PCV) [code = Pneumococcal Vaccine: 0-64 Years (2 - PCV)] [facility] Scheduled Test 2013-12-15 00:00:00 Pneumococcal Vaccine: 0-64 Years (2 - PCV) [code = Pneumococcal Vaccine: 0-64 Years (2 - PCV)] [facility] Scheduled Test 2013-12-15 00:00:00 Pneumococcal Vaccine: 0-64 Years (2 - PCV) [code = Pneumococcal Vaccine: 0-64 Years (2 - PCV)] [facility] Scheduled Test 2013-12-15 00:00:00 Pneumococcal Vaccine: 0-64 Years (2 - PCV) [code = Pneumococcal Vaccine: 0-64 Years (2 - PCV)] [facility] Scheduled Test 2013-12-15 00:00:00 Pneumococcal Vaccine: 0-64 Years (2 - PCV) [code = Pneumococcal Vaccine: 0-64 Years (2 - PCV)] [facility] Scheduled Test 2013-12-15 00:00:00 Pneumococcal Vaccine: 0-64 Years (2 - PCV) [code = Pneumococcal Vaccine: 0-64 Years (2 - PCV)] [facility] Scheduled Test 2013-12-15 00:00:00 Pneumococcal Vaccine: 0-64 Years (2 - PCV) [code = Pneumococcal Vaccine: 0-64 Years (2 - PCV)] [facility] Scheduled Test 2013-12-15 00:00:00 Pneumococcal Vaccine: 0-64 Years (2 - PCV) [code = Pneumococcal Vaccine: 0-64 Years (2 - PCV)] [facility] Scheduled Test 2013-12-15 00:00:00 Pneumococcal Vaccine: 0-64 Years (2 - PCV) [code = Pneumococcal Vaccine: 0-64 Years (2 - PCV)] [facility] Scheduled Test 2013-12-15 00:00:00 Pneumococcal Vaccine: 0-64 Years (2 - PCV) [code = Pneumococcal Vaccine: 0-64 Years (2 - PCV)] [facility] Scheduled Test 2013-12-15 00:00:00 Pneumococcal Vaccine: 0-64 Years (2 - PCV) [code = Pneumococcal Vaccine: 0-64 Years (2 - PCV)] [facility] Scheduled Test 2013-12-15 00:00:00 Pneumococcal Vaccine: 0-64 Years (2 - PCV) [code = Pneumococcal Vaccine: 0-64 Years (2 - PCV)] [facility] Future Scheduled Test 2013-12-15 00:00:00 Pneumococcal Vaccine: 0-64 Years (2 - PCV) [code = Pneumococcal Vaccine: 0-64 Years (2 - PCV)] [facility] Future Scheduled Test 2013-12-15 00:00:00 Pneumococcal Vaccine: 0-64 Years (2 - PCV) [code = Pneumococcal Vaccine: 0-64 Years (2 - PCV)] [facility] Future Scheduled Test 2013-12-15 00:00:00 Pneumococcal Vaccine: 0-64 Years (2 - PCV) [code = Pneumococcal Vaccine: 0-64 Years (2 - PCV)] [facility] Future Scheduled Test 2013-12-15 00:00:00 Pneumococcal Vaccine: 0-64 Years (2 - PCV) [code = Pneumococcal Vaccine: 0-64 Years (2 - PCV)] [facility] Future Scheduled Test 2013-12-15 00:00:00 Pneumococcal Vaccine: 0-64 Years (2 - PCV) [code = Pneumococcal Vaccine: 0-64 Years (2 - PCV)] [facility] Future Scheduled Test 2013-12-15 00:00:00 Pneumococcal Vaccine: 0-64 Years (2 - PCV) [code = Pneumococcal Vaccine: 0-64 Years (2 - PCV)] [facility] Future Scheduled Test 2013-12-15 00:00:00 Pneumococcal Vaccine: 0-64 Years (2 - PCV) [code = Pneumococcal Vaccine: 0-64 Years (2 - PCV)] [facility] Future Scheduled Test 2013-12-15 00:00:00 Pneumococcal Vaccine: 0-64 Years (2 of 2 - PCV) [code = Pneumococcal Vaccine: 0-64 Years (2 of 2 - PCV)] [facility] Future Scheduled Test 2013-12-15 00:00:00 Pneumococcal Vaccine: 0-64 Years (2 of 2 - PCV) [code = Pneumococcal Vaccine: 0-64 Years (2 of 2 - PCV)] [facility] Future Scheduled Test 2013-12-15 00:00:00 Pneumococcal Vaccine: 0-64 Years (2 of 2 - PCV) [code = Pneumococcal Vaccine: 0-64 Years (2 of 2 - PCV)] [facility] Future Scheduled Test 2013-12-15 00:00:00 Pneumococcal Vaccine: 0-64 Years (2 of 2 - PCV) [code = Pneumococcal Vaccine: 0-64 Years (2 of 2 - PCV)] [facility] Future Scheduled Test 2013-12-15 00:00:00 Pneumococcal Vaccine: 0-64 Years (2 of 2 - PCV) [code = Pneumococcal Vaccine: 0-64 Years (2 of 2 - PCV)] [facility] Future Scheduled Test 2013-12-15 00:00:00 Pneumococcal Vaccine: 0-64 Years (2 of 2 - PCV) [code = Pneumococcal Vaccine: 0-64 Years (2 of 2 - PCV)] [facility] Future Scheduled Test 2013-12-15 00:00:00 Pneumococcal Vaccine: 0-64 Years (2 of 2 - PCV) [code = Pneumococcal Vaccine: 0-64 Years (2 of 2 - PCV)] [facility] Future Scheduled Test 2013-12-15 00:00:00 Pneumococcal Vaccine: 0-64 Years (2 of 2 - PCV) [code = Pneumococcal Vaccine: 0-64 Years (2 of 2 - PCV)] [facility] Future Scheduled Test 2013-12-15 00:00:00 Pneumococcal Vaccine: 0-64 Years (2 of 2 - PCV) [code = Pneumococcal Vaccine: 0-64 Years (2 of 2 - PCV)] [facility] Future Scheduled Test 2013-12-15 00:00:00 Pneumococcal Vaccine: 0-64 Years (2 of 2 - PCV) [code = Pneumococcal Vaccine: 0-64 Years (2 of 2 - PCV)] [facility] Future Scheduled Test 2013-12-15 00:00:00 Pneumococcal Vaccine: 0-64 Years (2 of 2 - PCV) [code = Pneumococcal Vaccine: 0-64 Years (2 of 2 - PCV)] [facility] Future Scheduled Test 2013-12-15 00:00:00 Pneumococcal Vaccine: 0-64 Years (2 of 2 - PCV) [code = Pneumococcal Vaccine: 0-64 Years (2 of 2 - PCV)] [facility] Future Scheduled Test 2013-12-15 00:00:00 Pneumococcal Vaccine: 0-64 Years (2 of 2 - PCV) [code = Pneumococcal Vaccine: 0-64 Years (2 of 2 - PCV)] [facility] Future Scheduled Test 2013-12-15 00:00:00 Pneumococcal Vaccine: 0-64 Years (2 of 2 - PCV) [code = Pneumococcal Vaccine: 0-64 Years (2 of 2 - PCV)] [facility] Future Scheduled Test 2013-12-15 00:00:00 Pneumococcal Vaccine: 0-64 Years (2 of 2 - PCV) [code = Pneumococcal Vaccine: 0-64 Years (2 of 2 - PCV)] [facility] Future Scheduled Test 2013-12-15 00:00:00 Pneumococcal Vaccine: 0-64 Years (2 of 2 - PCV) [code = Pneumococcal Vaccine: 0-64 Years (2 of 2 - PCV)] [facility] Future Scheduled Test 2013-12-15 00:00:00 Pneumococcal Vaccine: 0-64 Years (2 of 2 - PCV) [code = Pneumococcal Vaccine: 0-64 Years (2 of 2 - PCV)] [facility] Future Scheduled Test 2013-12-15 00:00:00 Pneumococcal Vaccine: 0-64 Years (2 of 2 - PCV) [code = Pneumococcal Vaccine: 0-64 Years (2 of 2 - PCV)] [facility] Future Scheduled Test 2013-12-15 00:00:00 Pneumococcal Vaccine: 0-64 Years (2 of 2 - PCV) [code = Pneumococcal Vaccine: 0-64 Years (2 of 2 - PCV)] [facility] Future Scheduled Test 2013-12-15 00:00:00 Pneumococcal Vaccine: 0-64 Years (2 - PCV) [code = Pneumococcal Vaccine: 0-64 Years (2 - PCV)] [facility] Future Scheduled Test 2013-12-15 00:00:00 Pneumococcal Vaccine: 0-64 Years (2 - PCV) [code = Pneumococcal Vaccine: 0-64 Years (2 - PCV)] [facility] Future Scheduled Test 2013-12-15 00:00:00 Pneumococcal Vaccine: 0-64 Years (2 - PCV) [code = Pneumococcal Vaccine: 0-64 Years (2 - PCV)] [facility] Future Scheduled Test 1993-01-14 00:00:00 Screening for malignant neoplasm of cervix (procedure) [code = [id number]] [facility] Future Scheduled Test 1993-01-14 00:00:00 Screening for malignant neoplasm of cervix (procedure) [code = [id number]] [facility] Future Scheduled Test 1993-01-14 00:00:00 Screening for malignant neoplasm of cervix (procedure) [code = [id number]] [facility] Future Scheduled Test 1993-01-14 00:00:00 Screening for malignant neoplasm of cervix (procedure) [code = [id number]] [facility] Future Scheduled Test 1993-01-14 00:00:00 Screening for malignant neoplasm of cervix (procedure) [code = [id number]] [facility] Future Scheduled Test 1993-01-14 00:00:00 Screening for malignant neoplasm of cervix (procedure) [code = 399892062] [facility] Future Scheduled Test 1993-01-14 00:00:00 Screening for malignant neoplasm of cervix (procedure) [code = [id number]] [facility] Future Scheduled Test 1993-01-14 00:00:00 Screening for malignant neoplasm of cervix (procedure) [code = [id number]] [facility] Future Scheduled Test 1993-01-14 00:00:00 Screening for malignant neoplasm of cervix (procedure) [code = [id number]] [facility] Future Scheduled Test 1993-01-14 00:00:00 Screening for malignant neoplasm of cervix (procedure) [code = [id number]] [facility] Future Scheduled Test 1993-01-14 00:00:00 Screening for malignant neoplasm of cervix (procedure) [code = [id number]] [facility] Future Scheduled Test 1993-01-14 00:00:00 Screening for malignant neoplasm of cervix (procedure) [code = [id number]] [facility] Future Scheduled Test 1993-01-14 00:00:00 Screening for malignant neoplasm of cervix (procedure) [code = [id number]] [facility] Future Scheduled Test 1993-01-14 00:00:00 Screening for malignant neoplasm of cervix (procedure) [code = [id number]] [facility] Future Scheduled Test 1993-01-14 00:00:00 Screening for malignant neoplasm of cervix (procedure) [code = [id number]] [facility] Future Scheduled Test 1993-01-14 00:00:00 Screening for malignant neoplasm of cervix (procedure) [code = 189153087] [facility] Future Scheduled Test 1993-01-14 00:00:00 Screening for malignant neoplasm of cervix (procedure) [code = [id number]] [facility] Future Scheduled Test 1993-01-14 00:00:00 Screening for malignant neoplasm of cervix (procedure) [code = [id number]] [facility] Future Scheduled Test 1993-01-14 00:00:00 Screening for malignant neoplasm of cervix (procedure) [code = [id number]] [facility] Future Scheduled Test 1993-01-14 00:00:00 Screening for malignant neoplasm of cervix (procedure) [code = [id number]] [facility] Future Scheduled Test 1993-01-14 00:00:00 Screening for malignant neoplasm of cervix (procedure) [code = 571266596] [facility] Future Scheduled Test 1993-01-14 00:00:00 Screening for malignant neoplasm of cervix (procedure) [code = 238871703] [facility] Future Scheduled Test 1993-01-14 00:00:00 Screening for malignant neoplasm of cervix (procedure) [code = 432243379] [facility] Future Scheduled Test 1993-01-14 00:00:00 Screening for malignant neoplasm of cervix (procedure) [code = 224807063] [facility] Future Scheduled Test 1993-01-14 00:00:00 Screening for malignant neoplasm of cervix (procedure) [code = 375630988] [facility] Future Scheduled Test 1993-01-14 00:00:00 Screening for malignant neoplasm of cervix (procedure) [code = [id number]] [facility] Future Scheduled Test 1993-01-14 00:00:00 Screening for malignant neoplasm of cervix (procedure) [code = 587410108] [facility] Future Scheduled Test 1993-01-14 00:00:00 Screening for malignant neoplasm of cervix (procedure) [code = 727487587] [facility] Future Scheduled Test 1993-01-14 00:00:00 Screening for malignant neoplasm of cervix (procedure) [code = 322707533] [facility] Future Scheduled Test 1993-01-14 00:00:00 Screening for malignant neoplasm of cervix (procedure) [code = 483412902] [facility] Future Scheduled Test 1993-01-14 00:00:00 Screening for malignant neoplasm of cervix (procedure) [code = 399797107] [facility] Future Scheduled Test 1993-01-14 00:00:00 Screening for malignant neoplasm of cervix (procedure) [code = 556228864] [facility] Future Scheduled Test 1993-01-14 00:00:00 Screening for malignant neoplasm of cervix (procedure) [code = [id number]] [facility] Future Scheduled Test 1993-01-14 00:00:00 Screening for malignant neoplasm of cervix (procedure) [code = 837546690] [facility] Future Scheduled Test 1993-01-14 00:00:00 Screening for malignant neoplasm of cervix (procedure) [code = [id number]] [facility] Future Scheduled Test 1993-01-14 00:00:00 Screening for malignant neoplasm of cervix (procedure) [code = 534486953] [facility] Future Scheduled Test 1993-01-14 00:00:00 Screening for malignant neoplasm of cervix (procedure) [code = [id number]] [facility] Future Scheduled Test 1993-01-14 00:00:00 Screening for malignant neoplasm of cervix (procedure) [code = 301110983] [facility] Future Scheduled Test 1993-01-14 00:00:00 Screening for malignant neoplasm of cervix (procedure) [code = [id number]] [facility] Future Scheduled Test 1993-01-14 00:00:00 Screening for malignant neoplasm of cervix (procedure) [code = 205296330] [facility] Future Scheduled Test 1993-01-14 00:00:00 Screening for malignant neoplasm of cervix (procedure) [code = 121463075] [facility] Future Scheduled Test 1993-01-14 00:00:00 Screening for malignant neoplasm of cervix (procedure) [code = [id number]] [facility] Future Scheduled Test 1993-01-14 00:00:00 Screening for malignant neoplasm of cervix (procedure) [code = [id number]] [facility] Future Scheduled Test 1993-01-14 00:00:00 Screening for malignant neoplasm of cervix (procedure) [code = [id number]] [facility] Future Scheduled Test 1993-01-14 00:00:00 Screening for malignant neoplasm of cervix (procedure) [code = [id number]] [facility] Future Scheduled Test 1993-01-14 00:00:00 Screening for malignant neoplasm of cervix (procedure) [code = [id number]] [facility] Future Scheduled Test 1993-01-14 00:00:00 Screening for malignant neoplasm of cervix (procedure) [code = 246202535] [facility] Future Scheduled Test 1993-01-14 00:00:00 Screening for malignant neoplasm of cervix (procedure) [code = [id number]] [facility] Future Scheduled Test 1993-01-14 00:00:00 Screening for malignant neoplasm of cervix (procedure) [code = [id number]] [facility] Future Scheduled Test 1993-01-14 00:00:00 Screening for malignant neoplasm of cervix (procedure) [code = 444164634] [facility] Future Scheduled Test 1993-01-14 00:00:00 Screening for malignant neoplasm of cervix (procedure) [code = [id number]] [facility] Future Scheduled Test 1993-01-14 00:00:00 Screening for malignant neoplasm of cervix (procedure) [code = 474648539] [facility] Future Scheduled Test 1993-01-14 00:00:00 Screening for malignant neoplasm of cervix (procedure) [code = 823708930] [facility] Future Scheduled Test 1993-01-14 00:00:00 Screening for malignant neoplasm of cervix (procedure) [code = 319183092] [facility] Future Scheduled Test 1993-01-14 00:00:00 Screening for malignant neoplasm of cervix (procedure) [code = [id number]] [facility] Future Scheduled Test 1993-01-14 00:00:00 Screening for malignant neoplasm of cervix (procedure) [code = 442406959] [facility] Future Scheduled Test 1993-01-14 00:00:00 Screening for malignant neoplasm of cervix (procedure) [code = [id number]] [facility] Future Scheduled Test 1993-01-14 00:00:00 Screening for malignant neoplasm of cervix (procedure) [code = [id number]] [facility] Future Scheduled Test 1993-01-14 00:00:00 Screening for malignant neoplasm of cervix (procedure) [code = 666488978] [facility] Future Scheduled Test 1993-01-14 00:00:00 Screening for malignant neoplasm of cervix (procedure) [code = 946038499] [facility] Future Scheduled Test 1993-01-14 00:00:00 Screening for malignant neoplasm of cervix (procedure) [code = [id number]] [facility] Future Scheduled Test 1993-01-14 00:00:00 Screening for malignant neoplasm of cervix (procedure) [code = [id number]] [facility] Future Scheduled Test 1993-01-14 00:00:00 Screening for malignant neoplasm of cervix (procedure) [code = [id number]] [facility] Future Scheduled Test 1993-01-14 00:00:00 Screening for malignant neoplasm of cervix (procedure) [code = [id number]] [facility] Future Scheduled Test 1993-01-14 00:00:00 Screening for malignant neoplasm of cervix (procedure) [code = [id number]] [facility] Future Scheduled Test 1993-01-14 00:00:00 Screening for malignant neoplasm of cervix (procedure) [code = 533846263] [facility] Future Scheduled Test 1993-01-14 00:00:00 Screening for malignant neoplasm of cervix (procedure) [code = [id number]] [facility] Future Scheduled Test 1993-01-14 00:00:00 Screening for malignant neoplasm of cervix (procedure) [code = [id number]] [facility] Future Scheduled Test 1993-01-14 00:00:00 Screening for malignant neoplasm of cervix (procedure) [code = [id number]] [facility] Future Scheduled Test 1993-01-14 00:00:00 Screening for malignant neoplasm of cervix (procedure) [code = 984777901] [facility] Future Scheduled Test 1991-01-14 00:00:00 DTAP/TDAP/TD VACCINES (1 - Tdap) [code = DTAP/TDAP/TD VACCINES (1 - Tdap)] [facility] Future Scheduled Test 1991-01-14 00:00:00 DTAP/TDAP/TD VACCINES (1 - Tdap) [code = DTAP/TDAP/TD VACCINES (1 - Tdap)] [facility] Future Scheduled Test 1991-01-14 00:00:00 DTAP/TDAP/TD VACCINES (1 - Tdap) [code = DTAP/TDAP/TD VACCINES (1 - Tdap)] [facility] Future Scheduled Test 1991-01-14 00:00:00 DTAP/TDAP/TD VACCINES (1 - Tdap) [code = DTAP/TDAP/TD VACCINES (1 - Tdap)] [facility] Future Scheduled Test 1991-01-14 00:00:00 DTAP/TDAP/TD VACCINES (1 - Tdap) [code = DTAP/TDAP/TD VACCINES (1 - Tdap)] [facility] Future Scheduled Test 1991-01-14 00:00:00 DTAP/TDAP/TD VACCINES (1 - Tdap) [code = DTAP/TDAP/TD VACCINES (1 - Tdap)] [facility] Future Scheduled Test 1991-01-14 00:00:00 DTAP/TDAP/TD VACCINES (1 - Tdap) [code = DTAP/TDAP/TD VACCINES (1 - Tdap)] [facility] Future Scheduled Test 1991-01-14 00:00:00 DTAP/TDAP/TD VACCINES (1 - Tdap) [code = DTAP/TDAP/TD VACCINES (1 - Tdap)] [facility] Future Scheduled Test 1991-01-14 00:00:00 DTAP/TDAP/TD VACCINES (1 - Tdap) [code = DTAP/TDAP/TD VACCINES (1 - Tdap)] [facility] Future Scheduled Test 1991-01-14 00:00:00 DTAP/TDAP/TD VACCINES (1 - Tdap) [code = DTAP/TDAP/TD VACCINES (1 - Tdap)] [facility] Future Scheduled Test 1991-01-14 00:00:00 DTAP/TDAP/TD VACCINES (1 - Tdap) [code = DTAP/TDAP/TD VACCINES (1 - Tdap)] [facility] Future Scheduled Test 1991-01-14 00:00:00 DTAP/TDAP/TD VACCINES (1 - Tdap) [code = DTAP/TDAP/TD VACCINES (1 - Tdap)] [facility] Future Scheduled Test 1991-01-14 00:00:00 DTAP/TDAP/TD VACCINES (1 - Tdap) [code = DTAP/TDAP/TD VACCINES (1 - Tdap)] [facility] Future Scheduled Test 1991-01-14 00:00:00 DTAP/TDAP/TD VACCINES (1 - Tdap) [code = DTAP/TDAP/TD VACCINES (1 - Tdap)] [facility] Future Scheduled Test 1991-01-14 00:00:00 DTAP/TDAP/TD VACCINES (1 - Tdap) [code = DTAP/TDAP/TD VACCINES (1 - Tdap)] [facility] Future Scheduled Test 1991-01-14 00:00:00 DTAP/TDAP/TD VACCINES (1 - Tdap) [code = DTAP/TDAP/TD VACCINES (1 - Tdap)] [facility] Future Scheduled Test 1991-01-14 00:00:00 DTAP/TDAP/TD VACCINES (1 - Tdap) [code = DTAP/TDAP/TD VACCINES (1 - Tdap)] [facility] Future Scheduled Test 1991-01-14 00:00:00 DTAP/TDAP/TD VACCINES (1 - Tdap) [code = DTAP/TDAP/TD VACCINES (1 - Tdap)] [facility] Future Scheduled Test 1991-01-14 00:00:00 DTAP/TDAP/TD VACCINES (1 - Tdap) [code = DTAP/TDAP/TD VACCINES (1 - Tdap)] [facility] Future Scheduled Test 1991-01-14 00:00:00 DTAP/TDAP/TD VACCINES (1 - Tdap) [code = DTAP/TDAP/TD VACCINES (1 - Tdap)] [facility] Future Scheduled Test 1991-01-14 00:00:00 DTAP/TDAP/TD VACCINES (1 - Tdap) [code = DTAP/TDAP/TD VACCINES (1 - Tdap)] [facility] Future Scheduled Test 1991-01-14 00:00:00 DTAP/TDAP/TD VACCINES (1 - Tdap) [code = DTAP/TDAP/TD VACCINES (1 - Tdap)] [facility] Future Scheduled Test 1991-01-14 00:00:00 DTAP/TDAP/TD VACCINES (1 - Tdap) [code = DTAP/TDAP/TD VACCINES (1 - Tdap)] [facility] Future Scheduled Test 1991-01-14 00:00:00 DTAP/TDAP/TD VACCINES (1 - Tdap) [code = DTAP/TDAP/TD VACCINES (1 - Tdap)] [facility] Future Scheduled Test 1991-01-14 00:00:00 DTAP/TDAP/TD VACCINES (1 - Tdap) [code = DTAP/TDAP/TD VACCINES (1 - Tdap)] [facility] Future Scheduled Test 1991-01-14 00:00:00 DTAP/TDAP/TD VACCINES (1 - Tdap) [code = DTAP/TDAP/TD VACCINES (1 - Tdap)] [facility] Future Scheduled Test 1991-01-14 00:00:00 DTAP/TDAP/TD VACCINES (1 - Tdap) [code = DTAP/TDAP/TD VACCINES (1 - Tdap)] [facility] Future Scheduled Test 1991-01-14 00:00:00 DTAP/TDAP/TD VACCINES (1 - Tdap) [code = DTAP/TDAP/TD VACCINES (1 - Tdap)] [facility] Future Scheduled Test 1991-01-14 00:00:00 DTAP/TDAP/TD VACCINES (1 - Tdap) [code = DTAP/TDAP/TD VACCINES (1 - Tdap)] [facility] Future Scheduled Test 1991-01-14 00:00:00 DTAP/TDAP/TD VACCINES (1 - Tdap) [code = DTAP/TDAP/TD VACCINES (1 - Tdap)] [facility] Future Scheduled Test 1991-01-14 00:00:00 DTAP/TDAP/TD VACCINES (1 - Tdap) [code = DTAP/TDAP/TD VACCINES (1 - Tdap)] [facility] Future Scheduled Test 1991-01-14 00:00:00 DTAP/TDAP/TD VACCINES (1 - Tdap) [code = DTAP/TDAP/TD VACCINES (1 - Tdap)] [facility] Future Scheduled Test 1991-01-14 00:00:00 DTAP/TDAP/TD VACCINES (1 - Tdap) [code = DTAP/TDAP/TD VACCINES (1 - Tdap)] [facility] Future Scheduled Test 1991-01-14 00:00:00 DTAP/TDAP/TD VACCINES (1 - Tdap) [code = DTAP/TDAP/TD VACCINES (1 - Tdap)] [facility] Future Scheduled Test 1991-01-14 00:00:00 DTAP/TDAP/TD VACCINES (1 - Tdap) [code = DTAP/TDAP/TD VACCINES (1 - Tdap)] [facility] Future Scheduled Test 1991-01-14 00:00:00 DTAP/TDAP/TD VACCINES (1 - Tdap) [code = DTAP/TDAP/TD VACCINES (1 - Tdap)] [facility] Future Scheduled Test 1991-01-14 00:00:00 DTAP/TDAP/TD VACCINES (1 - Tdap) [code = DTAP/TDAP/TD VACCINES (1 - Tdap)] [facility] Future Scheduled Test 1991-01-14 00:00:00 DTAP/TDAP/TD VACCINES (1 - Tdap) [code = DTAP/TDAP/TD VACCINES (1 - Tdap)] [facility] Future Scheduled Test 1991-01-14 00:00:00 DTAP/TDAP/TD VACCINES (1 - Tdap) [code = DTAP/TDAP/TD VACCINES (1 - Tdap)] [facility] Future Scheduled Test 1991-01-14 00:00:00 DTAP/TDAP/TD VACCINES (1 - Tdap) [code = DTAP/TDAP/TD VACCINES (1 - Tdap)] [facility] Future Scheduled Test 1991-01-14 00:00:00 DTAP/TDAP/TD VACCINES (1 - Tdap) [code = DTAP/TDAP/TD VACCINES (1 - Tdap)] [facility] Future Scheduled Test 1991-01-14 00:00:00 DTAP/TDAP/TD VACCINES (1 - Tdap) [code = DTAP/TDAP/TD VACCINES (1 - Tdap)] [facility] Future Scheduled Test 1991-01-14 00:00:00 DTAP/TDAP/TD VACCINES (1 - Tdap) [code = DTAP/TDAP/TD VACCINES (1 - Tdap)] [facility] Future Scheduled Test 1991-01-14 00:00:00 DTAP/TDAP/TD VACCINES (1 - Tdap) [code = DTAP/TDAP/TD VACCINES (1 - Tdap)] [facility] Future Scheduled Test 1991-01-14 00:00:00 DTAP/TDAP/TD VACCINES (1 - Tdap) [code = DTAP/TDAP/TD VACCINES (1 - Tdap)] [facility] Future Scheduled Test 1991-01-14 00:00:00 DTAP/TDAP/TD VACCINES (1 - Tdap) [code = DTAP/TDAP/TD VACCINES (1 - Tdap)] [facility] Future Scheduled Test 1991-01-14 00:00:00 DTAP/TDAP/TD VACCINES (1 - Tdap) [code = DTAP/TDAP/TD VACCINES (1 - Tdap)] [facility] Future Scheduled Test 1991-01-14 00:00:00 DTAP/TDAP/TD VACCINES (1 - Tdap) [code = DTAP/TDAP/TD VACCINES (1 - Tdap)] [facility] Future Scheduled Test 1991-01-14 00:00:00 DTAP/TDAP/TD VACCINES (1 - Tdap) [code = DTAP/TDAP/TD VACCINES (1 - Tdap)] [facility] Future Scheduled Test 1991-01-14 00:00:00 DTAP/TDAP/TD VACCINES (1 - Tdap) [code = DTAP/TDAP/TD VACCINES (1 - Tdap)] [facility] Future Scheduled Test 1991-01-14 00:00:00 DTAP/TDAP/TD VACCINES (1 - Tdap) [code = DTAP/TDAP/TD VACCINES (1 - Tdap)] [facility] Future Scheduled Test 1991-01-14 00:00:00 DTAP/TDAP/TD VACCINES (1 - Tdap) [code = DTAP/TDAP/TD VACCINES (1 - Tdap)] [facility] Future Scheduled Test 1991-01-14 00:00:00 DTAP/TDAP/TD VACCINES (1 - Tdap) [code = DTAP/TDAP/TD VACCINES (1 - Tdap)] [facility] Future Scheduled Test 1991-01-14 00:00:00 DTAP/TDAP/TD VACCINES (1 - Tdap) [code = DTAP/TDAP/TD VACCINES (1 - Tdap)] [facility] Future Scheduled Test 1991-01-14 00:00:00 DTAP/TDAP/TD VACCINES (1 - Tdap) [code = DTAP/TDAP/TD VACCINES (1 - Tdap)] [facility] Future Scheduled Test 1991-01-14 00:00:00 DTAP/TDAP/TD VACCINES (1 - Tdap) [code = DTAP/TDAP/TD VACCINES (1 - Tdap)] [facility] Future Scheduled Test 1991-01-14 00:00:00 DTAP/TDAP/TD VACCINES (1 - Tdap) [code = DTAP/TDAP/TD VACCINES (1 - Tdap)] [facility] Future Scheduled Test 1991-01-14 00:00:00 DTAP/TDAP/TD VACCINES (1 - Tdap) [code = DTAP/TDAP/TD VACCINES (1 - Tdap)] [facility] Scheduled Test 1991-01-14 00:00:00 DTAP/TDAP/TD VACCINES (1 - Tdap) [code = DTAP/TDAP/TD VACCINES (1 - Tdap)] [facility] Future Scheduled Test 1991-01-14 00:00:00 DTAP/TDAP/TD VACCINES (1 - Tdap) [code = DTAP/TDAP/TD VACCINES (1 - Tdap)] [facility] Future Scheduled Test 1991-01-14 00:00:00 DTAP/TDAP/TD VACCINES (1 - Tdap) [code = DTAP/TDAP/TD VACCINES (1 - Tdap)] [facility] Future Scheduled Test 1991-01-14 00:00:00 DTAP/TDAP/TD VACCINES (1 - Tdap) [code = DTAP/TDAP/TD VACCINES (1 - Tdap)] [facility] Future Scheduled Test 1991-01-14 00:00:00 DTAP/TDAP/TD VACCINES (1 - Tdap) [code = DTAP/TDAP/TD VACCINES (1 - Tdap)] [facility] Future Scheduled Test 1991-01-14 00:00:00 DTAP/TDAP/TD VACCINES (1 - Tdap) [code = DTAP/TDAP/TD VACCINES (1 - Tdap)] [facility] Future Scheduled Test 1991-01-14 00:00:00 DTAP/TDAP/TD VACCINES (1 - Tdap) [code = DTAP/TDAP/TD VACCINES (1 - Tdap)] [facility] Future Scheduled Test 1991-01-14 00:00:00 DTAP/TDAP/TD VACCINES (1 - Tdap) [code = DTAP/TDAP/TD VACCINES (1 - Tdap)] [facility] Future Scheduled Test 1991-01-14 00:00:00 DTAP/TDAP/TD VACCINES (1 - Tdap) [code = DTAP/TDAP/TD VACCINES (1 - Tdap)] [facility] Future Scheduled Test 1991-01-14 00:00:00 DTAP/TDAP/TD VACCINES (1 - Tdap) [code = DTAP/TDAP/TD VACCINES (1 - Tdap)] [facility] Future Scheduled Test 1991-01-14 00:00:00 DTAP/TDAP/TD VACCINES (1 - Tdap) [code = DTAP/TDAP/TD VACCINES (1 - Tdap)] [facility] Future Scheduled Test 1991-01-14 00:00:00 DTAP/TDAP/TD VACCINES (1 - Tdap) [code = DTAP/TDAP/TD VACCINES (1 - Tdap)] [facility] Future Scheduled Test 1990-01-14 00:00:00 HEPATITIS C SCREENING [code = HEPATITIS C SCREENING] [facility] Future Scheduled Test 1990-01-14 00:00:00 HEPATITIS C SCREENING [code = HEPATITIS C SCREENING] [facility] Future Scheduled Test 1990-01-14 00:00:00 HEPATITIS C SCREENING [code = HEPATITIS C SCREENING] [facility] Future Scheduled Test 1990-01-14 00:00:00 HEPATITIS C SCREENING [code = HEPATITIS C SCREENING] [facility] Future Scheduled Test 1990-01-14 00:00:00 HEPATITIS C SCREENING [code = HEPATITIS C SCREENING] [facility] Future Scheduled Test 1990-01-14 00:00:00 HEPATITIS C SCREENING [code = HEPATITIS C SCREENING] [facility] Future Scheduled Test 1990-01-14 00:00:00 HEPATITIS C SCREENING [code = HEPATITIS C SCREENING] [facility] Future Scheduled Test 1990-01-14 00:00:00 HEPATITIS C SCREENING [code = HEPATITIS C SCREENING] [facility] Future Scheduled Test 1990-01-14 00:00:00 HEPATITIS C SCREENING [code = HEPATITIS C SCREENING] [facility] Future Scheduled Test 1990-01-14 00:00:00 HEPATITIS C SCREENING [code = HEPATITIS C SCREENING] [facility] Future Scheduled Test 1990-01-14 00:00:00 HEPATITIS C SCREENING [code = HEPATITIS C SCREENING] [facility] Future Scheduled Test 1990-01-14 00:00:00 HEPATITIS C SCREENING [code = HEPATITIS C SCREENING] [facility] Future Scheduled Test 1990-01-14 00:00:00 HEPATITIS C SCREENING [code = HEPATITIS C SCREENING] [facility] Future Scheduled Test 1990-01-14 00:00:00 HEPATITIS C SCREENING [code = HEPATITIS C SCREENING] [facility] Future Scheduled Test 1990-01-14 00:00:00 HEPATITIS C SCREENING [code = HEPATITIS C SCREENING] [facility] Future Scheduled Test 1990-01-14 00:00:00 HEPATITIS C SCREENING [code = HEPATITIS C SCREENING] [facility] Future Scheduled Test 1990-01-14 00:00:00 HEPATITIS C SCREENING [code = HEPATITIS C SCREENING] [facility] Future Scheduled Test 1990-01-14 00:00:00 HEPATITIS C SCREENING [code = HEPATITIS C SCREENING] [facility] Future Scheduled Test 1990-01-14 00:00:00 HEPATITIS C SCREENING [code = HEPATITIS C SCREENING] [facility] Future Scheduled Test 1990-01-14 00:00:00 HEPATITIS C SCREENING [code = HEPATITIS C SCREENING] [facility] Future Scheduled Test 1990-01-14 00:00:00 HEPATITIS C SCREENING [code = HEPATITIS C SCREENING] [facility] Future Scheduled Test 1990-01-14 00:00:00 HEPATITIS C SCREENING [code = HEPATITIS C SCREENING] [facility] Future Scheduled Test 1990-01-14 00:00:00 HEPATITIS C SCREENING [code = HEPATITIS C SCREENING] [facility] Future Scheduled Test 1990-01-14 00:00:00 HEPATITIS C SCREENING [code = HEPATITIS C SCREENING] [facility] Future Scheduled Test 1990-01-14 00:00:00 HEPATITIS C SCREENING [code = HEPATITIS C SCREENING] [facility] Future Scheduled Test 1990-01-14 00:00:00 HEPATITIS C SCREENING [code = HEPATITIS C SCREENING] [facility] Future Scheduled Test 1990-01-14 00:00:00 HEPATITIS C SCREENING [code = HEPATITIS C SCREENING] [facility] Future Scheduled Test 1990-01-14 00:00:00 HEPATITIS C SCREENING [code = HEPATITIS C SCREENING] [facility] Future Scheduled Test 1990-01-14 00:00:00 HEPATITIS C SCREENING [code = HEPATITIS C SCREENING] [facility] Future Scheduled Test 1990-01-14 00:00:00 HEPATITIS C SCREENING [code = HEPATITIS C SCREENING] [facility] Future Scheduled Test 1990-01-14 00:00:00 HEPATITIS C SCREENING [code = HEPATITIS C SCREENING] [facility] Future Scheduled Test 1990-01-14 00:00:00 HEPATITIS C SCREENING [code = HEPATITIS C SCREENING] [facility] Future Scheduled Test 1990-01-14 00:00:00 HEPATITIS C SCREENING [code = HEPATITIS C SCREENING] [facility] Future Scheduled Test 1990-01-14 00:00:00 HEPATITIS C SCREENING [code = HEPATITIS C SCREENING] [facility] Future Scheduled Test 1990-01-14 00:00:00 HEPATITIS C SCREENING [code = HEPATITIS C SCREENING] [facility] Future Scheduled Test 1990-01-14 00:00:00 HEPATITIS C SCREENING [code = HEPATITIS C SCREENING] [facility] Future Scheduled Test 1990-01-14 00:00:00 HEPATITIS C SCREENING [code = HEPATITIS C SCREENING] [facility] Future Scheduled Test 1990-01-14 00:00:00 HEPATITIS C SCREENING [code = HEPATITIS C SCREENING] [facility] Future Scheduled Test 1990-01-14 00:00:00 HEPATITIS C SCREENING [code = HEPATITIS C SCREENING] [facility] Future Scheduled Test 1990-01-14 00:00:00 HEPATITIS C SCREENING [code = HEPATITIS C SCREENING] [facility] Future Scheduled Test 1990-01-14 00:00:00 HEPATITIS C SCREENING [code = HEPATITIS C SCREENING] [facility] Future Scheduled Test 1990-01-14 00:00:00 HEPATITIS C SCREENING [code = HEPATITIS C SCREENING] [facility] Future Scheduled Test 1990-01-14 00:00:00 HEPATITIS C SCREENING [code = HEPATITIS C SCREENING] [facility] Future Scheduled Test 1990-01-14 00:00:00 HEPATITIS C SCREENING [code = HEPATITIS C SCREENING] [facility] Future Scheduled Test 1990-01-14 00:00:00 HEPATITIS C SCREENING [code = HEPATITIS C SCREENING] [facility] Future Scheduled Test 1990-01-14 00:00:00 HEPATITIS C SCREENING [code = HEPATITIS C SCREENING] [facility] Future Scheduled Test 1990-01-14 00:00:00 HEPATITIS C SCREENING [code = HEPATITIS C SCREENING] [facility] Future Scheduled Test 1990-01-14 00:00:00 HEPATITIS C SCREENING [code = HEPATITIS C SCREENING] [facility] Future Scheduled Test 1990-01-14 00:00:00 HEPATITIS C SCREENING [code = HEPATITIS C SCREENING] [facility] Future Scheduled Test 1990-01-14 00:00:00 HEPATITIS C SCREENING [code = HEPATITIS C SCREENING] [facility] Future Scheduled Test 1990-01-14 00:00:00 HEPATITIS C SCREENING [code = HEPATITIS C SCREENING] [facility] Future Scheduled Test 1990-01-14 00:00:00 HEPATITIS C SCREENING [code = HEPATITIS C SCREENING] [facility] Future Scheduled Test 1990-01-14 00:00:00 HEPATITIS C SCREENING [code = HEPATITIS C SCREENING] [facility] Future Scheduled Test 1990-01-14 00:00:00 HEPATITIS C SCREENING [code = HEPATITIS C SCREENING] [facility] Future Scheduled Test 1990-01-14 00:00:00 HEPATITIS C SCREENING [code = HEPATITIS C SCREENING] [facility] Future Scheduled Test 1990-01-14 00:00:00 HEPATITIS C SCREENING [code = HEPATITIS C SCREENING] [facility] Future Scheduled Test 1990-01-14 00:00:00 HEPATITIS C SCREENING [code = HEPATITIS C SCREENING] [facility] Future Scheduled Test 1990-01-14 00:00:00 HEPATITIS C SCREENING [code = HEPATITIS C SCREENING] [facility] Future Scheduled Test 1990-01-14 00:00:00 HEPATITIS C SCREENING [code = HEPATITIS C SCREENING] [facility] Future Scheduled Test 1990-01-14 00:00:00 HEPATITIS C SCREENING [code = HEPATITIS C SCREENING] [facility] Future Scheduled Test 1990-01-14 00:00:00 HEPATITIS C SCREENING [code = HEPATITIS C SCREENING] [facility] Future Scheduled Test 1990-01-14 00:00:00 HEPATITIS C SCREENING [code = HEPATITIS C SCREENING] [facility] Future Scheduled Test 1990-01-14 00:00:00 HEPATITIS C SCREENING [code = HEPATITIS C SCREENING] [facility] Future Scheduled Test 1990-01-14 00:00:00 HEPATITIS C SCREENING [code = HEPATITIS C SCREENING] [facility] Future Scheduled Test 1990-01-14 00:00:00 HEPATITIS C SCREENING [code = HEPATITIS C SCREENING] [facility] Future Scheduled Test 1990-01-14 00:00:00 HEPATITIS C SCREENING [code = HEPATITIS C SCREENING] [facility] Future Scheduled Test 1990-01-14 00:00:00 HEPATITIS C SCREENING [code = HEPATITIS C SCREENING] [facility] Future Scheduled Test 1990-01-14 00:00:00 HEPATITIS C SCREENING [code = HEPATITIS C SCREENING] [facility] Future Scheduled Test 1990-01-14 00:00:00 HEPATITIS C SCREENING [code = HEPATITIS C SCREENING] [facility] Future Scheduled Test 1990-01-14 00:00:00 HEPATITIS C SCREENING [code = HEPATITIS C SCREENING] [facility] Future Scheduled Test 1987-01-14 00:00:00 Human immunodeficiency virus screening (procedure) [code = 076383932] [facility] Future Scheduled Test 1987-01-14 00:00:00 Human immunodeficiency virus screening (procedure) [code = [id number]] [facility] Future Scheduled Test 1984 00:00:00 Tobacco Cessation Counseling and Screening (12+) [code = Tobacco Cessation Counseling and Screening (12+)] [facility] Future Scheduled Test 1984 00:00:00 Tobacco Cessation Counseling and Screening (12+) [code = Tobacco Cessation Counseling and Screening (12+)] [facility] Future Scheduled Test 1984 00:00:00 Tobacco Cessation Counseling and Screening (12+) [code = Tobacco Cessation Counseling and Screening (12+)] [facility] Scheduled Test 1984 00:00:00 Tobacco Cessation Counseling and Screening (12+) [code = Tobacco Cessation Counseling and Screening (12+)] [facility] Scheduled Test 1984 00:00:00 Tobacco Cessation Counseling and Screening (12+) [code = Tobacco Cessation Counseling and Screening (12+)] [facility] Future Scheduled Test 1984 00:00:00 Tobacco Cessation Counseling and Screening (12+) [code = Tobacco Cessation Counseling and Screening (12+)] [facility] Scheduled Test 1984 00:00:00 Tobacco Cessation Counseling and Screening (12+) [code = Tobacco Cessation Counseling and Screening (12+)] [facility] Future Scheduled Test 1984 00:00:00 Tobacco Cessation Counseling and Screening (12+) [code = Tobacco Cessation Counseling and Screening (12+)] [facility] Future Scheduled Test 1984 00:00:00 Tobacco Cessation Counseling and Screening (12+) [code = Tobacco Cessation Counseling and Screening (12+)] [facility] Future Scheduled Test 1984 00:00:00 Tobacco Cessation Counseling and Screening (12+) [code = Tobacco Cessation Counseling and Screening (12+)] [facility] Future Scheduled Test 1984 00:00:00 Tobacco Cessation Counseling and Screening (12+) [code = Tobacco Cessation Counseling and Screening (12+)] [facility] Scheduled Test 1984 00:00:00 Tobacco Cessation Counseling and Screening (12+) [code = Tobacco Cessation Counseling and Screening (12+)] [facility] Future Scheduled Test 1984 00:00:00 Tobacco Cessation Counseling and Screening (12+) [code = Tobacco Cessation Counseling and Screening (12+)] [facility] Scheduled Test 1984 00:00:00 Tobacco Cessation Counseling and Screening (12+) [code = Tobacco Cessation Counseling and Screening (12+)] [facility] Future Scheduled Test 1984 00:00:00 Tobacco Cessation Counseling and Screening (12+) [code = Tobacco Cessation Counseling and Screening (12+)] [facility] Scheduled Test 1984 00:00:00 Tobacco Cessation Counseling and Screening (12+) [code = Tobacco Cessation Counseling and Screening (12+)] [facility] Scheduled Test 1984 00:00:00 Tobacco Cessation Counseling and Screening (12+) [code = Tobacco Cessation Counseling and Screening (12+)] [facility] Scheduled Test 1984 00:00:00 Tobacco Cessation Counseling and Screening (12+) [code = Tobacco Cessation Counseling and Screening (12+)] [facility] Scheduled Test 1984 00:00:00 Tobacco Cessation Counseling and Screening (12+) [code = Tobacco Cessation Counseling and Screening (12+)] [facility] Scheduled Test 1984 00:00:00 Tobacco Cessation Counseling and Screening (12+) [code = Tobacco Cessation Counseling and Screening (12+)] [facility] Future Scheduled Test 1984 00:00:00 Tobacco Cessation Counseling and Screening (12+) [code = Tobacco Cessation Counseling and Screening (12+)] [facility] Future Scheduled Test 1984 00:00:00 Tobacco Cessation Counseling and Screening (12+) [code = Tobacco Cessation Counseling and Screening (12+)] [facility] Scheduled Test 1984 00:00:00 Tobacco Cessation Counseling and Screening (12+) [code = Tobacco Cessation Counseling and Screening (12+)] [facility] Future Scheduled Test 1972 00:00:00 Screening for malignant neoplasm of breast (procedure) [code = [id number]] [facility] Future Scheduled Test 1972 00:00:00 CT Colonography (combo) [code = CT Colonography (combo)] [facility] Scheduled Test 1972 00:00:00 Screening for malignant neoplasm of colon (procedure) [code = 340108677] [facility] Future Scheduled Test 1972 00:00:00 Screening for malignant neoplasm of colon (procedure) [code = 035156480] [facility] Future Scheduled Test 1972 00:00:00 Screening for malignant neoplasm of colon (procedure) [code = 750742824] [facility] Future Scheduled Test 1972 00:00:00 Screening for malignant neoplasm of colon (procedure) [code = 715533033] [facility] Future Scheduled Test 1972 00:00:00 Sigmoidoscopy [code = Sigmoidoscopy] [facility] Future Scheduled Test 1972 00:00:00 Screening for malignant neoplasm of breast (procedure) [code = 373428564] [facility] Future Scheduled Test 1972 00:00:00 CT Colonography (combo) [code = CT Colonography (combo)] [facility] Future Scheduled Test 1972 00:00:00 Screening for malignant neoplasm of colon (procedure) [code = 031606344] [facility] Future Scheduled Test 1972 00:00:00 Screening for malignant neoplasm of colon (procedure) [code = 707888584] [facility] Future Scheduled Test 1972 00:00:00 Screening for malignant neoplasm of colon (procedure) [code = 759795711] [facility] Future Scheduled Test 1972 00:00:00 Screening for malignant neoplasm of colon (procedure) [code = 327411454] [facility] Future Scheduled Test 1972 00:00:00 Sigmoidoscopy [code = Sigmoidoscopy] [facility] Future Scheduled Test 1972 00:00:00 Screening for malignant neoplasm of breast (procedure) [code = 983075688] [facility] Future Scheduled Test 1972 00:00:00 CT Colonography (combo) [code = CT Colonography (combo)] [facility] Future Scheduled Test 1972 00:00:00 Screening for malignant neoplasm of colon (procedure) [code = 857779649] [facility] Future Scheduled Test 1972 00:00:00 Screening for malignant neoplasm of colon (procedure) [code = 093440225] [facility] Future Scheduled Test 1972 00:00:00 Screening for malignant neoplasm of colon (procedure) [code = 386639203] [facility] Future Scheduled Test 1972 00:00:00 Screening for malignant neoplasm of colon (procedure) [code = 539502351] [facility] Future Scheduled Test 1972 00:00:00 Sigmoidoscopy [code = Sigmoidoscopy] [facility] Future Scheduled Test 1972 00:00:00 Screening for malignant neoplasm of breast (procedure) [code = 076292026] [facility] Future Scheduled Test 1972 00:00:00 CT Colonography (combo) [code = CT Colonography (combo)] [facility] Future Scheduled Test 1972 00:00:00 Screening for malignant neoplasm of colon (procedure) [code = 174554545] [facility] Future Scheduled Test 1972 00:00:00 Screening for malignant neoplasm of colon (procedure) [code = 102212864] [facility] Future Scheduled Test 1972 00:00:00 Screening for malignant neoplasm of colon (procedure) [code = 857725329] [facility] Future Scheduled Test 1972 00:00:00 Screening for malignant neoplasm of colon (procedure) [code = 034657810] [facility] Future Scheduled Test 1972 00:00:00 Sigmoidoscopy [code = Sigmoidoscopy] [facility] Scheduled Test 1972 00:00:00 Screening for malignant neoplasm of breast (procedure) [code = 607941794] [facility] Future Scheduled Test 1972 00:00:00 CT Colonography (combo) [code = CT Colonography (combo)] [facility] Future Scheduled Test 1972 00:00:00 Screening for malignant neoplasm of colon (procedure) [code = 666995264] [facility] Future Scheduled Test 1972 00:00:00 Screening for malignant neoplasm of colon (procedure) [code = 604163968] [facility] Future Scheduled Test 1972 00:00:00 Screening for malignant neoplasm of colon (procedure) [code = 658476511] [facility] Future Scheduled Test 1972 00:00:00 Screening for malignant neoplasm of colon (procedure) [code = 679921100] [facility] Future Scheduled Test 1972 00:00:00 Sigmoidoscopy [code = Sigmoidoscopy] [facility] Future Scheduled Test 1972 00:00:00 Screening for malignant neoplasm of breast (procedure) [code = 266578606] [facility] Future Scheduled Test 1972 00:00:00 CT Colonography (combo) [code = CT Colonography (combo)] [facility] Future Scheduled Test 1972 00:00:00 Screening for malignant neoplasm of colon (procedure) [code = 573761396] [facility] Future Scheduled Test 1972 00:00:00 Screening for malignant neoplasm of colon (procedure) [code = 914872934] [facility] Future Scheduled Test 1972 00:00:00 Screening for malignant neoplasm of colon (procedure) [code = 871284849] [facility] Scheduled Test 1972 00:00:00 Screening for malignant neoplasm of colon (procedure) [code = 935283075] [facility] Future Scheduled Test 1972 00:00:00 Sigmoidoscopy [code = Sigmoidoscopy] [facility] Future Scheduled Test 1972 00:00:00 Screening for malignant neoplasm of breast (procedure) [code = 584111241] [facility] Future Scheduled Test 1972 00:00:00 CT Colonography (combo) [code = CT Colonography (combo)] [facility] Scheduled Test 1972 00:00:00 Screening for malignant neoplasm of colon (procedure) [code = 619308840] [facility] Scheduled Test 1972 00:00:00 Screening for malignant neoplasm of colon (procedure) [code = 635238696] [facility] Scheduled Test 1972 00:00:00 Screening for malignant neoplasm of colon (procedure) [code = 455461101] [facility] Scheduled Test 1972 00:00:00 Screening for malignant neoplasm of colon (procedure) [code = 806500701] [facility] Scheduled Test 1972 00:00:00 Sigmoidoscopy [code = Sigmoidoscopy] [facility] Scheduled Test 1972 00:00:00 Screening for malignant neoplasm of breast (procedure) [code = 386246615] [facility] Scheduled Test 1972 00:00:00 CT Colonography (combo) [code = CT Colonography (combo)] [facility] Scheduled Test 1972 00:00:00 Screening for malignant neoplasm of colon (procedure) [code = 254070158] [facility] Scheduled Test 1972 00:00:00 Screening for malignant neoplasm of colon (procedure) [code = 529411194] [facility] Scheduled Test 1972 00:00:00 Screening for malignant neoplasm of colon (procedure) [code = 698534282] [facility] Scheduled Test 1972 00:00:00 Screening for malignant neoplasm of colon (procedure) [code = 603341862] [facility] Scheduled Test 1972 00:00:00 Sigmoidoscopy [code = Sigmoidoscopy] [facility] Scheduled Test 1972 00:00:00 Screening for malignant neoplasm of breast (procedure) [code = 832135399] [facility] Scheduled Test 1972 00:00:00 CT Colonography (combo) [code = CT Colonography (combo)] [facility] Scheduled Test 1972 00:00:00 Screening for malignant neoplasm of colon (procedure) [code = 446294522] [facility] Scheduled Test 1972 00:00:00 Screening for malignant neoplasm of colon (procedure) [code = 020567296] [facility] Future Scheduled Test 1972 00:00:00 Screening for malignant neoplasm of colon (procedure) [code = 980721128] [facility] Scheduled Test 1972 00:00:00 Screening for malignant neoplasm of colon (procedure) [code = 163122905] [facility] Future Scheduled Test 1972 00:00:00 Sigmoidoscopy [code = Sigmoidoscopy] [facility] Scheduled Test 1972 00:00:00 Screening for malignant neoplasm of breast (procedure) [code = 979725985] [facility] Future Scheduled Test 1972 00:00:00 CT Colonography (combo) [code = CT Colonography (combo)] [facility] Future Scheduled Test 1972 00:00:00 Screening for malignant neoplasm of colon (procedure) [code = 389977555] [facility] Future Scheduled Test 1972 00:00:00 Screening for malignant neoplasm of colon (procedure) [code = 324335629] [facility] Future Scheduled Test 1972 00:00:00 Screening for malignant neoplasm of colon (procedure) [code = 978476676] [facility] Future Scheduled Test 1972 00:00:00 Screening for malignant neoplasm of colon (procedure) [code = 330863020] [facility] Future Scheduled Test 1972 00:00:00 Sigmoidoscopy [code = Sigmoidoscopy] [facility] Scheduled Test 1972 00:00:00 Screening for malignant neoplasm of breast (procedure) [code = [id number]] [facility] Future Scheduled Test 1972 00:00:00 CT Colonography (combo) [code = CT Colonography (combo)] [facility] Future Scheduled Test 1972 00:00:00 Screening for malignant neoplasm of colon (procedure) [code = 014564929] [facility] Future Scheduled Test 1972 00:00:00 Screening for malignant neoplasm of colon (procedure) [code = 170559004] [facility] Future Scheduled Test 1972 00:00:00 Screening for malignant neoplasm of colon (procedure) [code = 488792530] [facility] Future Scheduled Test 1972 00:00:00 Screening for malignant neoplasm of colon (procedure) [code = 271773013] [facility] Future Scheduled Test 1972 00:00:00 Sigmoidoscopy [code = Sigmoidoscopy] [facility] Future Scheduled Test 1972 00:00:00 Screening for malignant neoplasm of breast (procedure) [code = 088784751] [facility] Future Scheduled Test 1972 00:00:00 CT Colonography (combo) [code = CT Colonography (combo)] [facility] Future Scheduled Test 1972 00:00:00 Screening for malignant neoplasm of colon (procedure) [code = 207474160] [facility] Future Scheduled Test 1972 00:00:00 Screening for malignant neoplasm of colon (procedure) [code = 749758502] [facility] Future Scheduled Test 1972 00:00:00 Screening for malignant neoplasm of colon (procedure) [code = 780832428] [facility] Future Scheduled Test 1972 00:00:00 Screening for malignant neoplasm of colon (procedure) [code = 776455505] [facility] Future Scheduled Test 1972 00:00:00 Sigmoidoscopy [code = Sigmoidoscopy] [facility] Future Scheduled Test 1972 00:00:00 Screening for malignant neoplasm of breast (procedure) [code = 467750518] [facility] Future Scheduled Test 1972 00:00:00 CT Colonography (combo) [code = CT Colonography (combo)] [facility] Future Scheduled Test 1972 00:00:00 Screening for malignant neoplasm of colon (procedure) [code = 683199168] [facility] Future Scheduled Test 1972 00:00:00 Screening for malignant neoplasm of colon (procedure) [code = 600136740] [facility] Future Scheduled Test 1972 00:00:00 Screening for malignant neoplasm of colon (procedure) [code = 961099109] [facility] Future Scheduled Test 1972 00:00:00 Screening for malignant neoplasm of colon (procedure) [code = 487812393] [facility] Future Scheduled Test 1972 00:00:00 Sigmoidoscopy [code = Sigmoidoscopy] [facility] Future Scheduled Test 1972 00:00:00 Screening for malignant neoplasm of breast (procedure) [code = 385683125] [facility] Future Scheduled Test 1972 00:00:00 CT Colonography (combo) [code = CT Colonography (combo)] [facility] Future Scheduled Test 1972 00:00:00 Screening for malignant neoplasm of colon (procedure) [code = 051535718] [facility] Future Scheduled Test 1972 00:00:00 Screening for malignant neoplasm of colon (procedure) [code = 092436100] [facility] Future Scheduled Test 1972 00:00:00 Screening for malignant neoplasm of colon (procedure) [code = 037794539] [facility] Future Scheduled Test 1972 00:00:00 Screening for malignant neoplasm of colon (procedure) [code = 975656658] [facility] Future Scheduled Test 1972 00:00:00 Sigmoidoscopy [code = Sigmoidoscopy] [facility] Future Scheduled Test 1972 00:00:00 Screening for malignant neoplasm of breast (procedure) [code = 353836245] [facility] Future Scheduled Test 1972 00:00:00 CT Colonography (combo) [code = CT Colonography (combo)] [facility] Future Scheduled Test 1972 00:00:00 Screening for malignant neoplasm of colon (procedure) [code = 143982792] [facility] Future Scheduled Test 1972 00:00:00 Screening for malignant neoplasm of colon (procedure) [code = 012757742] [facility] Future Scheduled Test 1972 00:00:00 Screening for malignant neoplasm of colon (procedure) [code = 038879340] [facility] Future Scheduled Test 1972 00:00:00 Screening for malignant neoplasm of colon (procedure) [code = 502040355] [facility] Future Scheduled Test 1972 00:00:00 Sigmoidoscopy [code = Sigmoidoscopy] [facility] Future Scheduled Test 1972 00:00:00 Screening for malignant neoplasm of breast (procedure) [code = 982745235] [facility] Future Scheduled Test 1972 00:00:00 CT Colonography (combo) [code = CT Colonography (combo)] [facility] Future Scheduled Test 1972 00:00:00 Screening for malignant neoplasm of colon (procedure) [code = 437578675] [facility] Future Scheduled Test 1972 00:00:00 Screening for malignant neoplasm of colon (procedure) [code = 137674607] [facility] Future Scheduled Test 1972 00:00:00 Screening for malignant neoplasm of colon (procedure) [code = 125815072] [facility] Future Scheduled Test 1972 00:00:00 Screening for malignant neoplasm of colon (procedure) [code = 298187544] [facility] Future Scheduled Test 1972 00:00:00 Sigmoidoscopy [code = Sigmoidoscopy] [facility] Future Scheduled Test 1972 00:00:00 Screening for malignant neoplasm of breast (procedure) [code = 655262717] [facility] Future Scheduled Test 1972 00:00:00 CT Colonography (combo) [code = CT Colonography (combo)] [facility] Scheduled Test 1972 00:00:00 Screening for malignant neoplasm of colon (procedure) [code = 060739441] [facility] Future Scheduled Test 1972 00:00:00 Screening for malignant neoplasm of colon (procedure) [code = 594682893] [facility] Future Scheduled Test 1972 00:00:00 Screening for malignant neoplasm of colon (procedure) [code = 543782552] [facility] Future Scheduled Test 1972 00:00:00 Screening for malignant neoplasm of colon (procedure) [code = 918743523] [facility] Future Scheduled Test 1972 00:00:00 Sigmoidoscopy [code = Sigmoidoscopy] [facility] Future Scheduled Test 1972 00:00:00 Screening for malignant neoplasm of breast (procedure) [code = 165129694] [facility] Future Scheduled Test 1972 00:00:00 CT Colonography (combo) [code = CT Colonography (combo)] [facility] Future Scheduled Test 1972 00:00:00 Screening for malignant neoplasm of breast (procedure) [code = 544086195] [facility] Future Scheduled Test 1972 00:00:00 CT Colonography (combo) [code = CT Colonography (combo)] [facility] Future Scheduled Test 1972 00:00:00 Screening for malignant neoplasm of colon (procedure) [code = 126333788] [facility] Future Scheduled Test 1972 00:00:00 Screening for malignant neoplasm of colon (procedure) [code = 692751410] [facility] Future Scheduled Test 1972 00:00:00 Screening for malignant neoplasm of colon (procedure) [code = 975557445] [facility] Future Scheduled Test 1972 00:00:00 Screening for malignant neoplasm of colon (procedure) [code = 621637518] [facility] Future Scheduled Test 1972 00:00:00 Sigmoidoscopy [code = Sigmoidoscopy] [facility] Future Scheduled Test 1972 00:00:00 Screening for malignant neoplasm of colon (procedure) [code = 738938534] [facility] Future Scheduled Test 1972 00:00:00 Screening for malignant neoplasm of colon (procedure) [code = 605309476] [facility] Future Scheduled Test 1972 00:00:00 Screening for malignant neoplasm of colon (procedure) [code = 020696017] [facility] Future Scheduled Test 1972 00:00:00 Screening for malignant neoplasm of colon (procedure) [code = 961619547] [facility] Future Scheduled Test 1972 00:00:00 Sigmoidoscopy [code = Sigmoidoscopy] [facility] Scheduled Test 1972 00:00:00 Screening for malignant neoplasm of breast (procedure) [code = 499254815] [facility] Future Scheduled Test 1972 00:00:00 CT Colonography (combo) [code = CT Colonography (combo)] [facility] Future Scheduled Test 1972 00:00:00 Screening for malignant neoplasm of colon (procedure) [code = 887688234] [facility] Future Scheduled Test 1972 00:00:00 Screening for malignant neoplasm of colon (procedure) [code = 659618256] [facility] Future Scheduled Test 1972 00:00:00 Screening for malignant neoplasm of colon (procedure) [code = 839227400] [facility] Future Scheduled Test 1972 00:00:00 Screening for malignant neoplasm of colon (procedure) [code = 791985428] [facility] Future Scheduled Test 1972 00:00:00 Sigmoidoscopy [code = Sigmoidoscopy] [facility] Future Scheduled Test 1972 00:00:00 Screening for malignant neoplasm of breast (procedure) [code = 852518142] [facility] Future Scheduled Test 1972 00:00:00 CT Colonography (combo) [code = CT Colonography (combo)] [facility] Future Scheduled Test 1972 00:00:00 Screening for malignant neoplasm of colon (procedure) [code = 490958302] [facility] Future Scheduled Test 1972 00:00:00 Screening for malignant neoplasm of colon (procedure) [code = 131483944] [facility] Future Scheduled Test 1972 00:00:00 Screening for malignant neoplasm of colon (procedure) [code = 483265757] [facility] Future Scheduled Test 1972 00:00:00 Screening for malignant neoplasm of colon (procedure) [code = 313378087] [facility] Future Scheduled Test 1972 00:00:00 Sigmoidoscopy [code = Sigmoidoscopy] [facility] Future Scheduled Test 1972 00:00:00 Screening for malignant neoplasm of breast (procedure) [code = 859018410] [facility] Future Scheduled Test 1972 00:00:00 CT Colonography (combo) [code = CT Colonography (combo)] [facility] Future Scheduled Test 1972 00:00:00 Screening for malignant neoplasm of colon (procedure) [code = 526874652] [facility] Future Scheduled Test 1972 00:00:00 Screening for malignant neoplasm of colon (procedure) [code = 354145662] [facility] Scheduled Test 1972 00:00:00 Screening for malignant neoplasm of colon (procedure) [code = 732185627] [facility] Future Scheduled Test 1972 00:00:00 Screening for malignant neoplasm of colon (procedure) [code = 467887707] [facility] Future Scheduled Test 1972 00:00:00 Sigmoidoscopy [code = Sigmoidoscopy] [facility] Scheduled Test 1972 00:00:00 Screening for malignant neoplasm of breast (procedure) [code = 197729265] [facility] Future Scheduled Test 1972 00:00:00 CT Colonography (combo) [code = CT Colonography (combo)] [facility] Scheduled Test 1972 00:00:00 Screening for malignant neoplasm of colon (procedure) [code = 232814005] [facility] Future Scheduled Test 1972 00:00:00 Screening for malignant neoplasm of colon (procedure) [code = 801653276] [facility] Future Scheduled Test 1972 00:00:00 Screening for malignant neoplasm of colon (procedure) [code = 627485219] [facility] Future Scheduled Test 1972 00:00:00 Screening for malignant neoplasm of colon (procedure) [code = 178302556] [facility] Future Scheduled Test 1972 00:00:00 Sigmoidoscopy [code = Sigmoidoscopy] [facility] Future Scheduled Test 1972 00:00:00 Screening for malignant neoplasm of breast (procedure) [code = 322283011] [facility] Future Scheduled Test 1972 00:00:00 CT Colonography (combo) [code = CT Colonography (combo)] [facility] Future Scheduled Test 1972 00:00:00 Screening for malignant neoplasm of colon (procedure) [code = 819103828] [facility] Future Scheduled Test 1972 00:00:00 Screening for malignant neoplasm of colon (procedure) [code = 436703700] [facility] Future Scheduled Test 1972 00:00:00 Screening for malignant neoplasm of colon (procedure) [code = 627328503] [facility] Future Scheduled Test 1972 00:00:00 Screening for malignant neoplasm of colon (procedure) [code = 587496855] [facility] Future Scheduled Test 1972 00:00:00 Sigmoidoscopy [code = Sigmoidoscopy] [facility] Future Scheduled Test 1972 00:00:00 Screening for malignant neoplasm of breast (procedure) [code = 134764291] [facility] Future Scheduled Test 1972 00:00:00 CT Colonography (combo) [code = CT Colonography (combo)] [facility] Future Scheduled Test 1972 00:00:00 Screening for malignant neoplasm of colon (procedure) [code = 104639444] [facility] Future Scheduled Test 1972 00:00:00 Screening for malignant neoplasm of colon (procedure) [code = 392487753] [facility] Future Scheduled Test 1972 00:00:00 Screening for malignant neoplasm of colon (procedure) [code = 661446109] [facility] Future Scheduled Test 1972 00:00:00 Screening for malignant neoplasm of colon (procedure) [code = 683698087] [facility] Future Scheduled Test 1972 00:00:00 Sigmoidoscopy [code = Sigmoidoscopy] [facility] Future Scheduled Test 1972 00:00:00 Screening for malignant neoplasm of breast (procedure) [code = 757521038] [facility] Future Scheduled Test 1972 00:00:00 CT Colonography (combo) [code = CT Colonography (combo)] [facility] Future Scheduled Test 1972 00:00:00 Screening for malignant neoplasm of colon (procedure) [code = 067770167] [facility] Future Scheduled Test 1972 00:00:00 Screening for malignant neoplasm of colon (procedure) [code = 924115621] [facility] Future Scheduled Test 1972 00:00:00 Screening for malignant neoplasm of colon (procedure) [code = 760744212] [facility] Future Scheduled Test 1972 00:00:00 Screening for malignant neoplasm of colon (procedure) [code = 765081540] [facility] Future Scheduled Test 1972 00:00:00 Screening for malignant neoplasm of breast (procedure) [code = 456362182] [facility] Future Scheduled Test 1972 00:00:00 CT Colonography (combo) [code = CT Colonography (combo)] [facility] Future Scheduled Test 1972 00:00:00 Sigmoidoscopy [code = Sigmoidoscopy] [facility] Future Scheduled Test 1972 00:00:00 Screening for malignant neoplasm of colon (procedure) [code = 486546296] [facility] Future Scheduled Test 1972 00:00:00 Screening for malignant neoplasm of colon (procedure) [code = 270609788] [facility] Future Scheduled Test 1972 00:00:00 Screening for malignant neoplasm of colon (procedure) [code = 331997147] [facility] Future Scheduled Test 1972 00:00:00 Screening for malignant neoplasm of colon (procedure) [code = 214279696] [facility] Future Scheduled Test 1972 00:00:00 Sigmoidoscopy [code = Sigmoidoscopy] [facility] Future Scheduled Test 1972 00:00:00 Screening for malignant neoplasm of breast (procedure) [code = 219866071] [facility] Future Scheduled Test 1972 00:00:00 CT Colonography (combo) [code = CT Colonography (combo)] [facility] Future Scheduled Test 1972 00:00:00 Screening for malignant neoplasm of colon (procedure) [code = 494834536] [facility] Future Scheduled Test 1972 00:00:00 Screening for malignant neoplasm of colon (procedure) [code = 121035251] [facility] Future Scheduled Test 1972 00:00:00 Screening for malignant neoplasm of colon (procedure) [code = 352043411] [facility] Future Scheduled Test 1972 00:00:00 Screening for malignant neoplasm of colon (procedure) [code = 198041401] [facility] Future Scheduled Test 1972 00:00:00 Sigmoidoscopy [code = Sigmoidoscopy] [facility] Future Scheduled Test 1972 00:00:00 Screening for malignant neoplasm of breast (procedure) [code = 316852002] [facility] Future Scheduled Test 1972 00:00:00 CT Colonography (combo) [code = CT Colonography (combo)] [facility] Future Scheduled Test 1972 00:00:00 Screening for malignant neoplasm of colon (procedure) [code = 744417015] [facility] Future Scheduled Test 1972 00:00:00 Screening for malignant neoplasm of colon (procedure) [code = 263982071] [facility] Future Scheduled Test 1972 00:00:00 Screening for malignant neoplasm of colon (procedure) [code = 722798158] [facility] Future Scheduled Test 1972 00:00:00 Screening for malignant neoplasm of colon (procedure) [code = 526101211] [facility] Future Scheduled Test 1972 00:00:00 Sigmoidoscopy [code = Sigmoidoscopy] [facility] Future Scheduled Test 1972 00:00:00 Screening for malignant neoplasm of breast (procedure) [code = 854089235] [facility] Future Scheduled Test 1972 00:00:00 CT Colonography (combo) [code = CT Colonography (combo)] [facility] Future Scheduled Test 1972 00:00:00 Screening for malignant neoplasm of colon (procedure) [code = 990492391] [facility] Future Scheduled Test 1972 00:00:00 Screening for malignant neoplasm of colon (procedure) [code = 875175793] [facility] Future Scheduled Test 1972 00:00:00 Screening for malignant neoplasm of colon (procedure) [code = 717735003] [facility] Future Scheduled Test 1972 00:00:00 Screening for malignant neoplasm of colon (procedure) [code = 863700889] [facility] Future Scheduled Test 1972 00:00:00 Sigmoidoscopy [code = Sigmoidoscopy] [facility] Future Scheduled Test 1972 00:00:00 Screening for malignant neoplasm of breast (procedure) [code = 436192376] [facility] Future Scheduled Test 1972 00:00:00 CT Colonography (combo) [code = CT Colonography (combo)] [facility] Future Scheduled Test 1972 00:00:00 Screening for malignant neoplasm of colon (procedure) [code = 525579593] [facility] Future Scheduled Test 1972 00:00:00 Screening for malignant neoplasm of colon (procedure) [code = 042800005] [facility] Future Scheduled Test 1972 00:00:00 Screening for malignant neoplasm of colon (procedure) [code = 466133517] [facility] Future Scheduled Test 1972 00:00:00 Screening for malignant neoplasm of colon (procedure) [code = 405915650] [facility] Future Scheduled Test 1972 00:00:00 Sigmoidoscopy [code = Sigmoidoscopy] [facility] Future Scheduled Test 1972 00:00:00 Screening for malignant neoplasm of breast (procedure) [code = 047007696] [facility] Future Scheduled Test 1972 00:00:00 CT Colonography (combo) [code = CT Colonography (combo)] [facility] Future Scheduled Test 1972 00:00:00 Screening for malignant neoplasm of colon (procedure) [code = 399610752] [facility] Future Scheduled Test 1972 00:00:00 Screening for malignant neoplasm of colon (procedure) [code = 622262267] [facility] Future Scheduled Test 1972 00:00:00 Screening for malignant neoplasm of colon (procedure) [code = 536565818] [facility] Future Scheduled Test 1972 00:00:00 Screening for malignant neoplasm of colon (procedure) [code = 203979675] [facility] Future Scheduled Test 1972 00:00:00 Sigmoidoscopy [code = Sigmoidoscopy] [facility] Future Scheduled Test 1972 00:00:00 Screening for malignant neoplasm of breast (procedure) [code = 191781790] [facility] Future Scheduled Test 1972 00:00:00 CT Colonography (combo) [code = CT Colonography (combo)] [facility] Future Scheduled Test 1972 00:00:00 Screening for malignant neoplasm of colon (procedure) [code = 718268998] [facility] Future Scheduled Test 1972 00:00:00 Screening for malignant neoplasm of colon (procedure) [code = 583059899] [facility] Future Scheduled Test 1972 00:00:00 Screening for malignant neoplasm of breast (procedure) [code = 670898813] [facility] Future Scheduled Test 1972 00:00:00 Screening for malignant neoplasm of colon (procedure) [code = 932837060] [facility] Future Scheduled Test 1972 00:00:00 CT Colonography (combo) [code = CT Colonography (combo)] [facility] Future Scheduled Test 1972 00:00:00 Screening for malignant neoplasm of colon (procedure) [code = 572151438] [facility] Future Scheduled Test 1972 00:00:00 Screening for malignant neoplasm of colon (procedure) [code = 065304310] [facility] Future Scheduled Test 1972 00:00:00 Screening for malignant neoplasm of colon (procedure) [code = 704295686] [facility] Future Scheduled Test 1972 00:00:00 Screening for malignant neoplasm of colon (procedure) [code = 289882503] [facility] Future Scheduled Test 1972 00:00:00 Sigmoidoscopy [code = Sigmoidoscopy] [facility] Future Scheduled Test 1972 00:00:00 Screening for malignant neoplasm of colon (procedure) [code = 787285259] [facility] Future Scheduled Test 1972 00:00:00 Sigmoidoscopy [code = Sigmoidoscopy] [facility] Future Scheduled Test 1972 00:00:00 Screening for malignant neoplasm of breast (procedure) [code = 222739080] [facility] Future Scheduled Test 1972 00:00:00 CT Colonography (combo) [code = CT Colonography (combo)] [facility] Future Scheduled Test 1972 00:00:00 Screening for malignant neoplasm of colon (procedure) [code = 168565025] [facility] Future Scheduled Test 1972 00:00:00 Screening for malignant neoplasm of colon (procedure) [code = 740291832] [facility] Future Scheduled Test 1972 00:00:00 Screening for malignant neoplasm of colon (procedure) [code = 082408225] [facility] Future Scheduled Test 1972 00:00:00 Screening for malignant neoplasm of colon (procedure) [code = 945498979] [facility] Future Scheduled Test 1972 00:00:00 Sigmoidoscopy [code = Sigmoidoscopy] [facility] Future Scheduled Test 1972 00:00:00 Screening for malignant neoplasm of breast (procedure) [code = 361090413] [facility] Future Scheduled Test 1972 00:00:00 CT Colonography (combo) [code = CT Colonography (combo)] [facility] Future Scheduled Test 1972 00:00:00 Screening for malignant neoplasm of colon (procedure) [code = 787621100] [facility] Future Scheduled Test 1972 00:00:00 Screening for malignant neoplasm of colon (procedure) [code = 473030040] [facility] Future Scheduled Test 1972 00:00:00 Screening for malignant neoplasm of colon (procedure) [code = 157427511] [facility] Future Scheduled Test 1972 00:00:00 Screening for malignant neoplasm of colon (procedure) [code = [id number]] [facility] Future Scheduled Test 1972 00:00:00 Sigmoidoscopy [code = Sigmoidoscopy] [facility] Future Scheduled Test 1972 00:00:00 Screening for malignant neoplasm of breast (procedure) [code = [id number]] [facility] Future Scheduled Test 1972 00:00:00 CT Colonography (combo) [code = CT Colonography (combo)] [facility] Future Scheduled Test 1972 00:00:00 Screening for malignant neoplasm of colon (procedure) [code = [id number]] [facility] Future Scheduled Test 1972 00:00:00 Screening for malignant neoplasm of colon (procedure) [code = 692903218] [facility] Future Scheduled Test 1972 00:00:00 Screening for malignant neoplasm of colon (procedure) [code = 738527184] [facility] Future Scheduled Test 1972 00:00:00 Screening for malignant neoplasm of colon (procedure) [code = 263378520] [facility] Future Scheduled Test 1972 00:00:00 Sigmoidoscopy [code = Sigmoidoscopy] [facility] Future Scheduled Test 1972 00:00:00 Screening for malignant neoplasm of breast (procedure) [code = 097632952] [facility] Future Scheduled Test 1972 00:00:00 CT Colonography (combo) [code = CT Colonography (combo)] [facility] Future Scheduled Test 1972 00:00:00 Screening for malignant neoplasm of colon (procedure) [code = 824230270] [facility] Future Scheduled Test 1972 00:00:00 Screening for malignant neoplasm of colon (procedure) [code = 409102104] [facility] Future Scheduled Test 1972 00:00:00 Screening for malignant neoplasm of colon (procedure) [code = 767350962] [facility] Future Scheduled Test 1972 00:00:00 Screening for malignant neoplasm of colon (procedure) [code = 299497247] [facility] Future Scheduled Test 1972 00:00:00 Sigmoidoscopy [code = Sigmoidoscopy] [facility] Future Scheduled Test 1972 00:00:00 Screening for malignant neoplasm of breast (procedure) [code = 615915622] [facility] Future Scheduled Test 1972 00:00:00 CT Colonography (combo) [code = CT Colonography (combo)] [facility] Future Scheduled Test 1972 00:00:00 Screening for malignant neoplasm of colon (procedure) [code = 311821797] [facility] Future Scheduled Test 1972 00:00:00 Screening for malignant neoplasm of colon (procedure) [code = 669188569] [facility] Future Scheduled Test 1972 00:00:00 Screening for malignant neoplasm of colon (procedure) [code = 828155776] [facility] Future Scheduled Test 1972 00:00:00 Screening for malignant neoplasm of colon (procedure) [code = 995964655] [facility] Future Scheduled Test 1972 00:00:00 Sigmoidoscopy [code = Sigmoidoscopy] [facility] Future Scheduled Test 1972 00:00:00 Screening for malignant neoplasm of breast (procedure) [code = 814052714] [facility] Future Scheduled Test 1972 00:00:00 CT Colonography (combo) [code = CT Colonography (combo)] [facility] Future Scheduled Test 1972 00:00:00 Screening for malignant neoplasm of colon (procedure) [code = 161962354] [facility] Future Scheduled Test 1972 00:00:00 Screening for malignant neoplasm of colon (procedure) [code = 771898503] [facility] Future Scheduled Test 1972 00:00:00 Screening for malignant neoplasm of colon (procedure) [code = 383355453] [facility] Future Scheduled Test 1972 00:00:00 Screening for malignant neoplasm of colon (procedure) [code = 002458641] [facility] Future Scheduled Test 1972 00:00:00 Sigmoidoscopy [code = Sigmoidoscopy] [facility] Future Scheduled Test 1972 00:00:00 Screening for malignant neoplasm of breast (procedure) [code = 881568803] [facility] Future Scheduled Test 1972 00:00:00 CT Colonography (combo) [code = CT Colonography (combo)] [facility] Future Scheduled Test 1972 00:00:00 Screening for malignant neoplasm of colon (procedure) [code = 913581730] [facility] Future Scheduled Test 1972 00:00:00 Screening for malignant neoplasm of colon (procedure) [code = 582589478] [facility] Future Scheduled Test 1972 00:00:00 Screening for malignant neoplasm of colon (procedure) [code = 364394929] [facility] Future Scheduled Test 1972 00:00:00 Screening for malignant neoplasm of colon (procedure) [code = 043891783] [facility] Future Scheduled Test 1972 00:00:00 Sigmoidoscopy [code = Sigmoidoscopy] [facility] Future Scheduled Test 1972 00:00:00 Screening for malignant neoplasm of breast (procedure) [code = 932739083] [facility] Future Scheduled Test 1972 00:00:00 CT Colonography (combo) [code = CT Colonography (combo)] [facility] Future Scheduled Test 1972 00:00:00 Screening for malignant neoplasm of colon (procedure) [code = 135429757] [facility] Future Scheduled Test 1972 00:00:00 Screening for malignant neoplasm of colon (procedure) [code = 945887254] [facility] Future Scheduled Test 1972 00:00:00 Screening for malignant neoplasm of colon (procedure) [code = 354445985] [facility] Future Scheduled Test 1972 00:00:00 Screening for malignant neoplasm of colon (procedure) [code = 219314887] [facility] Future Scheduled Test 1972 00:00:00 Sigmoidoscopy [code = Sigmoidoscopy] [facility] Future Scheduled Test 1972 00:00:00 Screening for malignant neoplasm of breast (procedure) [code = 365435634] [facility] Future Scheduled Test 1972 00:00:00 CT Colonography (combo) [code = CT Colonography (combo)] [facility] Future Scheduled Test 1972 00:00:00 Screening for malignant neoplasm of colon (procedure) [code = 688163889] [facility] Future Scheduled Test 1972 00:00:00 Screening for malignant neoplasm of colon (procedure) [code = 287871660] [facility] Future Scheduled Test 1972 00:00:00 Screening for malignant neoplasm of colon (procedure) [code = 227332898] [facility] Future Scheduled Test 1972 00:00:00 Screening for malignant neoplasm of colon (procedure) [code = 779878614] [facility] Future Scheduled Test 1972 00:00:00 Sigmoidoscopy [code = Sigmoidoscopy] [facility] Future Scheduled Test 1972 00:00:00 Screening for malignant neoplasm of breast (procedure) [code = 751802401] [facility] Future Scheduled Test 1972 00:00:00 CT Colonography (combo) [code = CT Colonography (combo)] [facility] Future Scheduled Test 1972 00:00:00 Screening for malignant neoplasm of colon (procedure) [code = 622328509] [facility] Future Scheduled Test 1972 00:00:00 Screening for malignant neoplasm of colon (procedure) [code = 495702894] [facility] Future Scheduled Test 1972 00:00:00 Screening for malignant neoplasm of colon (procedure) [code = 771233523] [facility] Future Scheduled Test 1972 00:00:00 Screening for malignant neoplasm of colon (procedure) [code = 266585824] [facility] Future Scheduled Test 1972 00:00:00 Sigmoidoscopy [code = Sigmoidoscopy] [facility] Future Scheduled Test 1972 00:00:00 Screening for malignant neoplasm of breast (procedure) [code = 061004975] [facility] Future Scheduled Test 1972 00:00:00 CT Colonography (combo) [code = CT Colonography (combo)] [facility] Future Scheduled Test 1972 00:00:00 Screening for malignant neoplasm of colon (procedure) [code = 872500325] [facility] Future Scheduled Test 1972 00:00:00 Screening for malignant neoplasm of breast (procedure) [code = 783622015] [facility] Future Scheduled Test 1972 00:00:00 CT Colonography (combo) [code = CT Colonography (combo)] [facility] Future Scheduled Test 1972 00:00:00 Screening for malignant neoplasm of colon (procedure) [code = 625330161] [facility] Future Scheduled Test 1972 00:00:00 Screening for malignant neoplasm of colon (procedure) [code = 000775359] [facility] Future Scheduled Test 1972 00:00:00 Screening for malignant neoplasm of colon (procedure) [code = 543466209] [facility] Future Scheduled Test 1972 00:00:00 Screening for malignant neoplasm of colon (procedure) [code = 832949109] [facility] Future Scheduled Test 1972 00:00:00 Sigmoidoscopy [code = Sigmoidoscopy] [facility] Future Scheduled Test 1972 00:00:00 Screening for malignant neoplasm of colon (procedure) [code = 575254382] [facility] Future Scheduled Test 1972 00:00:00 Screening for malignant neoplasm of colon (procedure) [code = 105732347] [facility] Future Scheduled Test 1972 00:00:00 Screening for malignant neoplasm of colon (procedure) [code = 591188777] [facility] Future Scheduled Test 1972 00:00:00 Sigmoidoscopy [code = Sigmoidoscopy] [facility] Future Scheduled Test 1972 00:00:00 Screening for malignant neoplasm of breast (procedure) [code = 679948700] [facility] Future Scheduled Test 1972 00:00:00 CT Colonography (combo) [code = CT Colonography (combo)] [facility] Future Scheduled Test 1972 00:00:00 Screening for malignant neoplasm of colon (procedure) [code = 967109653] [facility] Future Scheduled Test 1972 00:00:00 Screening for malignant neoplasm of colon (procedure) [code = 197066457] [facility] Future Scheduled Test 1972 00:00:00 Screening for malignant neoplasm of colon (procedure) [code = 324606285] [facility] Future Scheduled Test 1972 00:00:00 Screening for malignant neoplasm of colon (procedure) [code = 453854246] [facility] Future Scheduled Test 1972 00:00:00 Sigmoidoscopy [code = Sigmoidoscopy] [facility] Future Scheduled Test 1972 00:00:00 Screening for malignant neoplasm of breast (procedure) [code = 397716213] [facility] Future Scheduled Test 1972 00:00:00 CT Colonography (combo) [code = CT Colonography (combo)] [facility] Future Scheduled Test 1972 00:00:00 Screening for malignant neoplasm of colon (procedure) [code = 718214078] [facility] Future Scheduled Test 1972 00:00:00 Screening for malignant neoplasm of colon (procedure) [code = 069025059] [facility] Future Scheduled Test 1972 00:00:00 Screening for malignant neoplasm of colon (procedure) [code = 325382634] [facility] Future Scheduled Test 1972 00:00:00 Screening for malignant neoplasm of colon (procedure) [code = 735288730] [facility] Future Scheduled Test 1972 00:00:00 Sigmoidoscopy [code = Sigmoidoscopy] [facility] Future Scheduled Test 1972 00:00:00 Screening for malignant neoplasm of breast (procedure) [code = 687934673] [facility] Future Scheduled Test 1972 00:00:00 CT Colonography (combo) [code = CT Colonography (combo)] [facility] Future Scheduled Test 1972 00:00:00 Screening for malignant neoplasm of colon (procedure) [code = 402648067] [facility] Future Scheduled Test 1972 00:00:00 Screening for malignant neoplasm of colon (procedure) [code = 553616782] [facility] Future Scheduled Test 1972 00:00:00 Screening for malignant neoplasm of colon (procedure) [code = 389295154] [facility] Future Scheduled Test 1972 00:00:00 Screening for malignant neoplasm of colon (procedure) [code = 186520718] [facility] Future Scheduled Test 1972 00:00:00 Sigmoidoscopy [code = Sigmoidoscopy] [facility] Future Scheduled Test 1972 00:00:00 Screening for malignant neoplasm of breast (procedure) [code = 617248856] [facility] Future Scheduled Test 1972 00:00:00 CT Colonography (combo) [code = CT Colonography (combo)] [facility] Future Scheduled Test 1972 00:00:00 Screening for malignant neoplasm of colon (procedure) [code = 888763527] [facility] Future Scheduled Test 1972 00:00:00 Screening for malignant neoplasm of colon (procedure) [code = 130177942] [facility] Future Scheduled Test 1972 00:00:00 Screening for malignant neoplasm of colon (procedure) [code = 810249774] [facility] Future Scheduled Test 1972 00:00:00 Screening for malignant neoplasm of colon (procedure) [code = 819637640] [facility] Future Scheduled Test 1972 00:00:00 Sigmoidoscopy [code = Sigmoidoscopy] [facility] Future Scheduled Test 1972 00:00:00 Screening for malignant neoplasm of breast (procedure) [code = 590419775] [facility] Future Scheduled Test 1972 00:00:00 CT Colonography (combo) [code = CT Colonography (combo)] [facility] Future Scheduled Test 1972 00:00:00 Screening for malignant neoplasm of colon (procedure) [code = 069448839] [facility] Future Scheduled Test 1972 00:00:00 Screening for malignant neoplasm of colon (procedure) [code = 325957543] [facility] Future Scheduled Test 1972 00:00:00 Screening for malignant neoplasm of colon (procedure) [code = 995807360] [facility] Future Scheduled Test 1972 00:00:00 Screening for malignant neoplasm of colon (procedure) [code = 240265209] [facility] Future Scheduled Test 1972 00:00:00 Screening for malignant neoplasm of breast (procedure) [code = 389780141] [facility] Future Scheduled Test 1972 00:00:00 Sigmoidoscopy [code = Sigmoidoscopy] [facility] Future Scheduled Test 1972 00:00:00 CT Colonography (combo) [code = CT Colonography (combo)] [facility] Future Scheduled Test 1972 00:00:00 Screening for malignant neoplasm of colon (procedure) [code = 244084936] [facility] Future Scheduled Test 1972 00:00:00 Screening for malignant neoplasm of breast (procedure) [code = 885508160] [facility] Future Scheduled Test 1972 00:00:00 CT Colonography (combo) [code = CT Colonography (combo)] [facility] Future Scheduled Test 1972 00:00:00 Screening for malignant neoplasm of colon (procedure) [code = 754057742] [facility] Future Scheduled Test 1972 00:00:00 Screening for malignant neoplasm of colon (procedure) [code = 690038259] [facility] Future Scheduled Test 1972 00:00:00 Screening for malignant neoplasm of colon (procedure) [code = 610227310] [facility] Future Scheduled Test 1972 00:00:00 Screening for malignant neoplasm of colon (procedure) [code = 304979764] [facility] Future Scheduled Test 1972 00:00:00 Screening for malignant neoplasm of colon (procedure) [code = 107271284] [facility] Future Scheduled Test 1972 00:00:00 Sigmoidoscopy [code = Sigmoidoscopy] [facility] Future Scheduled Test 1972 00:00:00 Screening for malignant neoplasm of colon (procedure) [code = 340086672] [facility] Future Scheduled Test 1972 00:00:00 Screening for malignant neoplasm of colon (procedure) [code = 506571759] [facility] Future Scheduled Test 1972 00:00:00 Screening for malignant neoplasm of breast (procedure) [code = 935501328] [facility] Future Scheduled Test 1972 00:00:00 CT Colonography (combo) [code = CT Colonography (combo)] [facility] Future Scheduled Test 1972 00:00:00 Screening for malignant neoplasm of colon (procedure) [code = 355971087] [facility] Future Scheduled Test 1972 00:00:00 Screening for malignant neoplasm of colon (procedure) [code = 682671402] [facility] Future Scheduled Test 1972 00:00:00 Sigmoidoscopy [code = Sigmoidoscopy] [facility] Future Scheduled Test 1972 00:00:00 Screening for malignant neoplasm of colon (procedure) [code = 629138010] [facility] Future Scheduled Test 1972 00:00:00 Screening for malignant neoplasm of colon (procedure) [code = 354423900] [facility] Future Scheduled Test 1972 00:00:00 Sigmoidoscopy [code = Sigmoidoscopy] [facility] Future Scheduled Test 1972 00:00:00 Screening for malignant neoplasm of breast (procedure) [code = 811427836] [facility] Future Scheduled Test 1972 00:00:00 CT Colonography (combo) [code = CT Colonography (combo)] [facility] Future Scheduled Test 1972 00:00:00 Screening for malignant neoplasm of colon (procedure) [code = 230228605] [facility] Future Scheduled Test 1972 00:00:00 Screening for malignant neoplasm of colon (procedure) [code = 578992525] [facility] Future Scheduled Test 1972 00:00:00 Screening for malignant neoplasm of colon (procedure) [code = 974637896] [facility] Future Scheduled Test 1972 00:00:00 Screening for malignant neoplasm of colon (procedure) [code = 510032364] [facility] Future Scheduled Test 1972 00:00:00 Sigmoidoscopy [code = Sigmoidoscopy] [facility] Future Scheduled Test 1972 00:00:00 Screening for malignant neoplasm of breast (procedure) [code = 986165225] [facility] Future Scheduled Test 1972 00:00:00 CT Colonography (combo) [code = CT Colonography (combo)] [facility] Future Scheduled Test 1972 00:00:00 Screening for malignant neoplasm of colon (procedure) [code = 080171846] [facility] Future Scheduled Test 1972 00:00:00 Screening for malignant neoplasm of colon (procedure) [code = 834340300] [facility] Future Scheduled Test 1972 00:00:00 Screening for malignant neoplasm of colon (procedure) [code = 878015964] [facility] Future Scheduled Test 1972 00:00:00 Screening for malignant neoplasm of colon (procedure) [code = 313992364] [facility] Future Scheduled Test 1972 00:00:00 Sigmoidoscopy [code = Sigmoidoscopy] [facility] Future Scheduled Test 1972 00:00:00 Screening for malignant neoplasm of breast (procedure) [code = 085496468] [facility] Future Scheduled Test 1972 00:00:00 CT Colonography (combo) [code = CT Colonography (combo)] [facility] Future Scheduled Test 1972 00:00:00 Screening for malignant neoplasm of colon (procedure) [code = 136152597] [facility] Future Scheduled Test 1972 00:00:00 Screening for malignant neoplasm of colon (procedure) [code = 350266148] [facility] Future Scheduled Test 1972 00:00:00 Screening for malignant neoplasm of colon (procedure) [code = 673784606] [facility] Future Scheduled Test 1972 00:00:00 Screening for malignant neoplasm of colon (procedure) [code = 072943748] [facility] Future Scheduled Test 1972 00:00:00 Sigmoidoscopy [code = Sigmoidoscopy] [facility] Future Scheduled Test 1972 00:00:00 Screening for malignant neoplasm of breast (procedure) [code = 766380874] [facility] Future Scheduled Test 1972 00:00:00 CT Colonography (combo) [code = CT Colonography (combo)] [facility] Future Scheduled Test 1972 00:00:00 Screening for malignant neoplasm of colon (procedure) [code = 110328887] [facility] Future Scheduled Test 1972 00:00:00 Screening for malignant neoplasm of colon (procedure) [code = 417900486] [facility] Future Scheduled Test 1972 00:00:00 Screening for malignant neoplasm of colon (procedure) [code = 032581048] [facility] Future Scheduled Test 1972 00:00:00 Screening for malignant neoplasm of colon (procedure) [code = 077076265] [facility] Future Scheduled Test 1972 00:00:00 Sigmoidoscopy [code = Sigmoidoscopy] [facility] Future Scheduled Test 1972 00:00:00 Screening for malignant neoplasm of breast (procedure) [code = 710212967] [facility] Future Scheduled Test 1972 00:00:00 CT Colonography (combo) [code = CT Colonography (combo)] [facility] Future Scheduled Test 1972 00:00:00 Screening for malignant neoplasm of colon (procedure) [code = 171364156] [facility] Future Scheduled Test 1972 00:00:00 Screening for malignant neoplasm of colon (procedure) [code = 432164941] [facility] Future Scheduled Test 1972 00:00:00 Screening for malignant neoplasm of colon (procedure) [code = 585115557] [facility] Future Scheduled Test 1972 00:00:00 Screening for malignant neoplasm of colon (procedure) [code = 244755639] [facility] Future Scheduled Test 1972 00:00:00 Sigmoidoscopy [code = Sigmoidoscopy] [facility] Future Scheduled Test 1972 00:00:00 Screening for malignant neoplasm of breast (procedure) [code = 879706998] [facility] Future Scheduled Test 1972 00:00:00 CT Colonography (combo) [code = CT Colonography (combo)] [facility] Future Scheduled Test 1972 00:00:00 Screening for malignant neoplasm of colon (procedure) [code = 556656633] [facility] Future Scheduled Test 1972 00:00:00 Screening for malignant neoplasm of colon (procedure) [code = 901711144] [facility] Future Scheduled Test 1972 00:00:00 Screening for malignant neoplasm of colon (procedure) [code = 496880899] [facility] Future Scheduled Test 1972 00:00:00 Screening for malignant neoplasm of colon (procedure) [code = 940101609] [facility] Future Scheduled Test 1972 00:00:00 Sigmoidoscopy [code = Sigmoidoscopy] [facility] Future Scheduled Test 1972 00:00:00 Screening for malignant neoplasm of breast (procedure) [code = 043787988] [facility] Future Scheduled Test 1972 00:00:00 CT Colonography (combo) [code = CT Colonography (combo)] [facility] Future Scheduled Test 1972 00:00:00 Screening for malignant neoplasm of colon (procedure) [code = 961795138] [facility] Future Scheduled Test 1972 00:00:00 Screening for malignant neoplasm of colon (procedure) [code = 462346311] [facility] Future Scheduled Test 1972 00:00:00 Screening for malignant neoplasm of colon (procedure) [code = 285380403] [facility] Future Scheduled Test 1972 00:00:00 Screening for malignant neoplasm of colon (procedure) [code = 044578029] [facility] Future Scheduled Test 1972 00:00:00 Sigmoidoscopy [code = Sigmoidoscopy] [facility] Future Scheduled Test 1972 00:00:00 Screening for malignant neoplasm of breast (procedure) [code = 941745180] [facility] Future Scheduled Test 1972 00:00:00 CT Colonography (combo) [code = CT Colonography (combo)] [facility] Future Scheduled Test 1972 00:00:00 Screening for malignant neoplasm of colon (procedure) [code = 839935328] [facility] Future Scheduled Test 1972 00:00:00 Screening for malignant neoplasm of colon (procedure) [code = 794559832] [facility] Future Scheduled Test 1972 00:00:00 Screening for malignant neoplasm of colon (procedure) [code = 895387838] [facility] Future Scheduled Test 1972 00:00:00 Screening for malignant neoplasm of colon (procedure) [code = 160756166] [facility] Future Scheduled Test 1972 00:00:00 Sigmoidoscopy [code = Sigmoidoscopy] [facility] Future Scheduled Test 1972 00:00:00 Screening for malignant neoplasm of breast (procedure) [code = 845131172] [facility] Future Scheduled Test 1972 00:00:00 CT Colonography (combo) [code = CT Colonography (combo)] [facility] Future Scheduled Test 1972 00:00:00 Screening for malignant neoplasm of colon (procedure) [code = 502106103] [facility] Future Scheduled Test 1972 00:00:00 Screening for malignant neoplasm of colon (procedure) [code = 335438244] [facility] Future Scheduled Test 1972 00:00:00 Screening for malignant neoplasm of colon (procedure) [code = 653736563] [facility] Future Scheduled Test 1972 00:00:00 Screening for malignant neoplasm of colon (procedure) [code = 573438589] [facility] Future Scheduled Test 1972 00:00:00 Sigmoidoscopy [code = Sigmoidoscopy] [facility] Future Scheduled Test 1972 00:00:00 Screening for malignant neoplasm of breast (procedure) [code = 661570738] [facility] Future Scheduled Test 1972 00:00:00 CT Colonography (combo) [code = CT Colonography (combo)] [facility] Future Scheduled Test 1972 00:00:00 Screening for malignant neoplasm of colon (procedure) [code = 324578098] [facility] Future Scheduled Test 1972 00:00:00 Screening for malignant neoplasm of colon (procedure) [code = 092972680] [facility] Future Scheduled Test 1972 00:00:00 Screening for malignant neoplasm of colon (procedure) [code = 746706777] [facility] Future Scheduled Test 1972 00:00:00 Screening for malignant neoplasm of colon (procedure) [code = 448331770] [facility] Future Scheduled Test 1972 00:00:00 Sigmoidoscopy [code = Sigmoidoscopy] [facility] Future Scheduled Test 1972 00:00:00 Screening for malignant neoplasm of breast (procedure) [code = 960250238] [facility] Future Scheduled Test 1972 00:00:00 CT Colonography (combo) [code = CT Colonography (combo)] [facility] Future Scheduled Test 1972 00:00:00 Screening for malignant neoplasm of colon (procedure) [code = 888083856] [facility] Future Scheduled Test 1972 00:00:00 Screening for malignant neoplasm of colon (procedure) [code = 544934597] [facility] Future Scheduled Test 1972 00:00:00 Screening for malignant neoplasm of colon (procedure) [code = 436537009] [facility] Future Scheduled Test 1972 00:00:00 Screening for malignant neoplasm of colon (procedure) [code = 362670503] [facility] Future Scheduled Test 1972 00:00:00 Sigmoidoscopy [code = Sigmoidoscopy] [facility] Future Scheduled Test 1972 00:00:00 Screening for malignant neoplasm of breast (procedure) [code = 426433771] [facility] Future Scheduled Test 1972 00:00:00 CT Colonography (combo) [code = CT Colonography (combo)] [facility] Future Scheduled Test 1972 00:00:00 Screening for malignant neoplasm of colon (procedure) [code = 300418769] [facility] Future Scheduled Test 1972 00:00:00 Screening for malignant neoplasm of colon (procedure) [code = 430570196] [facility] Future Scheduled Test 1972 00:00:00 Screening for malignant neoplasm of colon (procedure) [code = 809367141] [facility] Future Scheduled Test 1972 00:00:00 Screening for malignant neoplasm of colon (procedure) [code = 532702316] [facility] Future Scheduled Test 1972 00:00:00 Sigmoidoscopy [code = Sigmoidoscopy] [facility] Future Scheduled Test 1972 00:00:00 Screening for malignant neoplasm of breast (procedure) [code = 591470244] [facility] Future Scheduled Test 1972 00:00:00 CT Colonography (combo) [code = CT Colonography (combo)] [facility] Future Scheduled Test 1972 00:00:00 Screening for malignant neoplasm of colon (procedure) [code = 134291466] [facility] Future Scheduled Test 1972 00:00:00 Screening for malignant neoplasm of colon (procedure) [code = 345405953] [facility] Future Scheduled Test 1972 00:00:00 Screening for malignant neoplasm of colon (procedure) [code = 458567458] [facility] Future Scheduled Test 1972 00:00:00 Screening for malignant neoplasm of colon (procedure) [code = 652041810] [facility] Future Scheduled Test 1972 00:00:00 Sigmoidoscopy [code = Sigmoidoscopy] [facility] Future Scheduled Test 1972 00:00:00 Screening for malignant neoplasm of breast (procedure) [code = 904346301] [facility] Future Scheduled Test 1972 00:00:00 CT Colonography (combo) [code = CT Colonography (combo)] [facility] Future Scheduled Test 1972 00:00:00 Screening for malignant neoplasm of colon (procedure) [code = 358313170] [facility] Future Scheduled Test 1972 00:00:00 Screening for malignant neoplasm of colon (procedure) [code = 974923116] [facility] Future Scheduled Test 1972 00:00:00 Screening for malignant neoplasm of colon (procedure) [code = 813566420] [facility] Future Scheduled Test 1972 00:00:00 Screening for malignant neoplasm of colon (procedure) [code = 843903641] [facility] Future Scheduled Test 1972 00:00:00 Sigmoidoscopy [code = Sigmoidoscopy] [facility] Future Scheduled Test 1972 00:00:00 Screening for malignant neoplasm of breast (procedure) [code = 514907889] [facility] Future Scheduled Test 1972 00:00:00 CT Colonography (combo) [code = CT Colonography (combo)] [facility] Future Scheduled Test 1972 00:00:00 Screening for malignant neoplasm of colon (procedure) [code = 962202546] [facility] Future Scheduled Test 1972 00:00:00 Screening for malignant neoplasm of colon (procedure) [code = 174867548] [facility] Future Scheduled Test 1972 00:00:00 Screening for malignant neoplasm of colon (procedure) [code = 091707723] [facility] Future Scheduled Test 1972 00:00:00 Screening for malignant neoplasm of colon (procedure) [code = 409402303] [facility] Future Scheduled Test 1972 00:00:00 Sigmoidoscopy [code = Sigmoidoscopy] [facility] Future Scheduled Test 1972 00:00:00 Screening for malignant neoplasm of breast (procedure) [code = 337948171] [facility] Future Scheduled Test 1972 00:00:00 CT Colonography (combo) [code = CT Colonography (combo)] [facility] Future Scheduled Test 1972 00:00:00 Screening for malignant neoplasm of colon (procedure) [code = 052344928] [facility] Future Scheduled Test 1972 00:00:00 Screening for malignant neoplasm of colon (procedure) [code = 178818044] [facility] Future Scheduled Test 1972 00:00:00 Screening for malignant neoplasm of colon (procedure) [code = 446574428] [facility] Future Scheduled Test 1972 00:00:00 Screening for malignant neoplasm of colon (procedure) [code = 781876189] [facility] Future Scheduled Test 1972 00:00:00 Sigmoidoscopy [code = Sigmoidoscopy] [facility] Goal Plan of Care Not e [code = 75611-0] Goal Plan of Care Not e [code = 16719-2] Goal Plan of Care Not e [code = 82740-4] Goal Plan of Care Not e [code = 06974-1] Goal Plan of Care Not e [code = 05295-0] Goal Plan of Care Not e [code = 13298-1] Goal Plan of Care Not e [code = 29976-4] Goal Plan of Care Not e [code = 94400-5] Goal Plan of Care Not e [code = 21356-5] Goal Plan of Care Not e [code = 17806-5] Goal Plan of Care Not e [code = 63719-0] Goal Plan of Care Not e [code = 50107-0] Goal Plan of Care Not e [code = 40648-8] Goal Plan of Care Not e [code = 17063-5] Goal Plan of Care Not e [code = 78619-8] Goal Plan of Care Not e [code = 56375-0] Goal Plan of Care Not e [code = 00690-0] Goal Plan of Care Not e [code = 31090-4] Goal Plan of Care Not e [code = 80317-5] Goal Plan of Care Not e [code = 56347-8] Goal Plan of Care Not e [code = 94445-1] Goal Plan of Care Not e [code = 92846-1] Goal Plan of Care Not e [code = 34831-8] Goal Plan of Care Not e [code = 10301-6] Goal Plan of Care Not e [code = 88482-8] Goal Plan of Care Not e [code = 68542-1] Goal Plan of Care Not e [code = 40140-5] Goal Plan of Care Not e [code = 04513-5] Goal Plan of Care Not e [code = 31030-9] Goal Plan of Care Not e [code = 54065-8] Goal Plan of Care Not e [code = 39708-7] Goal Plan of Care Not e [code = 38525-2] Goal Plan of Care Not e [code = 78599-9] Goal Plan of Care Not e [code = 20223-7] Goal Plan of Care Not e [code = 81482-9] Encounters Start Date/Time End Date/Time Encounter Type Admission Type Attending [facility] Care Department Encounter ID Source 2023-09-07 10:11:03 Inpatient PANKAJ PARRISH [facility] [id number] [facility] 2023-09-05 10:08:27 Inpatient PANKAJ PARRISH [facility] SLE [id number] [facility] 2023-09-05 10:05:12 Inpatient PANKAJ PARRISH SLERigoberto SLE [id number] [facility] 2023-09-04 04:51:30 Inpatient PANKAJ PARRISH SLERigoberto SLE [id number] [facility] 2023-09-04 04:14:55 Inpatient PANKAJ PARRISH SLE SLE [id number] [facility] 2023-09-04 03:08:45 Inpatient PANKAJ PARRISH SLE SLE [id number] [facility] 2023-09-04 02:36:28 Inpatient PANKAJ PARRISH SLE SLE [id number] [facility] 2023-06-16 09:32:36 Inpatient AYDEE DICKENS SLE SLE [id number] [facility] 2023-06-16 09:32:09 Inpatient AYDEE DICKENS SLE SLE [id number] [facility] 2023-06-16 09:31:53 Inpatient AYDEE DICKENS SLE SLE [id number] [facility] 2023-06-14 07:46:02 Inpatient AYDEE DICKENS SLE SLE [id number] [facility] 2023-06-14 07:39:22 Inpatient AYDEE DICKENS SLE SLE [id number] [facility] 2023-06-14 06:38:38 Inpatient AYDEE DICKENS SLE SLE [id number] [facility] 2023-06-13 13:44:18 Inpatient CARA MURPHY SLE SLE [id number] [facility] 2023-06-13 11:45:24 Inpatient AYDEE DICKENS [facility] [id number] [facility] 2023-05-08 11:21:00 Outpatient ADAM BRANTLEY [facility] Surgery [id number] [facility] 2023-04-01 14:26:29 Inpatient ER THOMAS LOZOYA [facility] [id number] [facility] 2023-03-31 09:24:52 Inpatient ER MARIAH ALDRIDGE [facility] [id number] [facility] 2021-05-20 18:48:04 Emergency [facility] [id number] [facility] 2021-05-20 12:43:40 Emergency [facility] [id number] [facility] 2024-02-16 10:15:00 2024-02-16 10:15:00 Outpatient MORALES BALL [id number] [facility] 2023-11-26 14:15:00 2023-11-26 14:15:00 Outpatient AARON LEDESMA [id number] [facility] 2023-11-12 15:15:00 2023-11-12 15:15:00 Outpatient GUSTAVO DELANEY [id number] [facility] 2023-11-10 09:30:00 2023-11-10 09:30:00 Outpatient MYLA MIJARES [id number] [facility] 2023-11-09 00:00:00 2023-11-09 00:00:00 Outpatient GUSTAVO DELANEY [id number] [facility] 2023-11-09 00:00:00 2023-11-09 00:00:00 Outpatient MYLA MIJARES [id number] [facility] 2023-11-07 17:51:00 2023-11-07 22:04:00 Emergency ER JUANY [facility] [id number] [facility] 2023-11-07 17:51:00 2023-11-07 22:04:00 emergency [facility] [id number] 2023-11-05 00:00:00 2023-11-05 00:00:00 Outpatient TIFFANY MONTANEZ [id number] [facility] 2023-11-03 00:00:00 2023-11-03 00:00:00 Outpatient CYNTHIA MTZ [id number] [facility] 2023-10-29 00:00:00 2023-10-29 00:00:00 Outpatient GUSTAVO DELANEY [id number] [facility] 2023-10-26 00:00:00 2023-10-26 00:00:00 Outpatient EFRA BABCOCK [id number] [facility] 2023-10-22 00:00:00 2023-10-22 00:00:00 Outpatient GUSTAVO DELANEY [id number] [facility] 2023-10-16 11:10:00 2023-10-16 11:10:00 Outpatient SIDDHARTH STANFORD [id number] [facility] 2023-[facility]-15 00:00:00 2023-10-15 00:00:00 Outpatient MD CYNTHIA MARLEY [id number] [facility] 2023-10-15 00:00:00 2023-10-15 00:00:00 Outpatient SHY [facility]ULILEN [id number] [facility]23-10-15 00:00:00 2023-10-15 00:00:00 Outpatient SHY GUILLEN [id number] [facility] 2023-10-06 10:45:00 2023-10-06 10:45:00 Outpatient SARAI JULES [id number] [facility] 2023-10-05 11:30:00 2023-10-05 11:30:00 Outpatient GUSTAVO DELANEY [id number] [facility] 2023-10-01 00:00:00 2023-10-01 00:00:00 Outpatient PREZASGUSTAVO CYNTHIA [id number] [facility] 2023-09-30 14:15:00 2023-09-30 14:15:00 Outpatient PREZASGUSTAVO CYNTHIA [id number] [facility] 2023-09-24 00:00:00 2023-09-24 00:00:00 Outpatient PREZASGUSTAVO CYNTHIA CYNTHIA [id number] [facility] 2023-09-23 00:00:00 2023-09-23 00:00:00 Outpatient CINDI TIFFANY MTZ [id number] [facility] 2023-09-22 00:00:00 2023-09-22 00:00:00 Outpatient PREZASGUSTAVO CYNTHIA [id number] [facility] 2023-09-22 00:00:00 2023-09-22 00:00:00 Outpatient GUILLENSHY PIERCE CYNTHIA MTZ [id number] [facility] 2023-09-16 00:00:00 2023-09-16 00:00:00 Outpatient PREZAGUSTAVO Alexander CYNTHIA CYNTHIA [id number] [facility] 2023-09-16 00:00:00 2023-09-16 00:00:00 Outpatient PREZAS, GUSTAVO MTZ CYNTHIA [id number] [facility] 2023-09-16 00:00:00 2023-09-16 00:00:00 Outpatient PREZASGUSTAVO CYNTHIA MTZ [id number] [facility] 2023-09-14 00:00:00 2023-09-14 00:00:00 Outpatient SHY GUILLEN CYNTHIA MTZ [id number] [facility] 2023-09-14 00:00:00 2023-09-14 00:00:00 Outpatient SHY GUILLEN CYNTHIA MTZ [id number] [facility] 2023-09-11 11:00:00 2023-09-11 11:00:00 Outpatient YONATAN LORENZO [id number] [facility] 2023-09-09 00:00:00 2023-09-09 00:00:00 Outpatient CYNTHIA MTZ [id number] [facility] Garcia 2023-09-04 00:14:00 2023-09-08 10:51:00 Hospital Encounter ER London Loyola, Pankaj Fry, Selin Sosa [facility] [id number] [facility] 2023-09-04 00:14:00 2023-09-08 10:51:00 Inpatient ER SELIN FERRER YUNG Neurosurger y [id number] [facility] 2023-09-04 00:14:00 2023-09-08 10:51:00 Hospital Encounter London Loyola, Pankaj Fry, Selin Sosa [facility] [id number] [facility] 2023-09-07 18:41:43 2023-09-07 18:41:43 [facility] [id number] [facility] 2023-09-03 20:52:00 2023-09-03 23:44:00 Emergency ER JUANY [facility] [id number] [facility] 2023-09-03 20:52:00 2023-09-03 23:44:00 emergency [facility] [id number] 2023-09-02 00:00:00 2023-09-02 00:00:00 Outpatient TIFFANY MONTANEZ [id number] [facility] 2023-09-01 15:30:00 2023-09-01 15:30:00 Outpatient DEMETRIUS TOBAR [id number] [facility] 2023-08-19 00:00:00 2023-08-19 00:00:00 Out[facility]ILL[facility] [id number] [facility] 2023-08-13 00:00:00 2023-08-13 00:00:00 Orders Only Ketan Scruggs [facility] [id number] [facility] 2023-08-13 00:00:00 2023-08-13 00:00:00 Orders Only Ketan Scruggs [facility] [id number] [facility] 2023-08-12 13:49:00 2023-08-12 16:12:00 Emergency X BRIAN BRYAN [facility] ERT [id number] [facility] 2023-08-12 13:49:00 2023-08-12 16:12:00 Emergency Brian Bryan [facility] [id number] [facility] 2023-06-13 03:43:00 2023-06-16 19:45:00 Hospital Encounter ER Cara Burgess Sahar [facility] [id number] [facility] 2023-06-13 03:43:00 2023-06-16 19:45:00 Inpatient ER AYDEE GO [facility] Internal Med [id number] [facility] 2023-06-13 03:43:00 2023-06-16 19:45:00 Hospital Encounter Cara Burgess Sahar [facility] [id number] [facility] 2023-06-15 00:00:00 2023-06-15 00:00:00 Orders Only System, Provider Not In [facility] [id number] [facility] 2023-06-15 00:00:00 2023-06-15 00:00:00 Orders Only System, Provider Not In [facility] [id number] [facility] 2023-06-13 16:30:06 2023-06-13 16:30:06 Outpatient EL [facility]YDEE GO [facility] [id number] [facility] 2023-06-13 00:00:00 2023-06-13 00:00:00 Orders Only [facility] [id number] [facility] 2023-06-13 00:00:00 2023-06-13 00:00:00 Travel [facility] [id number] [facility] 2023-06-13 00:00:00 2023-06-13 00:00:00 Orders Only [facility] [id number] [facility] 2023-06-13 00:00:00 2023-06-13 00:00:00 Travel [facility] [id number] [facility] 2023-06-12 00:00:00 2023-06-12 00:00:00 Telephone Dallas Gomez [facility] [id number] [facility] 2023-06-12 00:00:00 2023-06-12 00:00:00 Telephone [place] Gomez [facility] [id number] [facility] 2023-05-28 06:45:00 2023-06-04 17:36:00 Hospital Encounter NICOLETTE Adam Garcia [facility] [id number] [facility] 2023-05-28 06:45:00 2023-06-04 17:36:00 [facility] [id number] [facility] 2023-05-28 06:45:00 2023-06-04 17:36:00 Hospital Encounter Adam Garcia [facility] [id number] [facility] 2023-06-01 09:10:00 2023-06-01 13:00:00 Anesthesia Event Harry Newsome Mujtaba Ahmad [facility] [id number] [facility] 2023-06-01 09:10:00 2023-06-01 13:00:00 Anesthesia Event Harry Newsome Mujtaba Ahmad [facility] [id number] [facility] 2023-06-01 09:00:00 2023-06-01 11:30:00 Surgery Adam Garcia [facility] [id number] [facility] 2023-06-01 09:00:00 2023-06-01 11:30:00 Surgery Adam Garcia [facility] [id number] [facility] 2023-06-01 09:47:57 2023-06-01 09:47:57 Outpatient ADAM BRANTLEY [facility] [id number] [facility] 2023-06-01 09:40:34 2023-06-01 09:40:34 [facility] [id number] [facility] 2023-05-31 09:25:55 2023-05-31 23:59:00 Inpatient ADAM BRANTLEY [facility] [id number] [facility] 2023-05-31 09:00:00 2023-05-31 23:59:00 Hospital Encounter Adam Garcia Adi [facility] [id number] [facility] 2023-05-31 09:00:00 2023-05-31 23:59:00 Hospital Encounter Adam Garcia [facility] [id number] [facility] 2023-05-28 18:15:29 2023-05-28 18:15:29 [facility] [id number] [facility] 2023-05-28 08:30:00 2023-05-28 11:54:00 Anesthesia Event Yue Bui [facility] [id number] [facility] 2023-05-28 08:30:00 2023-05-28 11:54:00 Anesthesia Event RamyaYue [facility] [id number] [facility] 2023-05-28 11:41:14 2023-05-28 11:41:14 Outpatient ADAM BRANTLEY [facility] [id number] [facility] 2023-05-28 08:30:00 2023-05-28 11:00:00 Surgery Adam Garcia Adi [facility] [id number] [facility] 2023-05-28 08:30:00 2023-05-28 11:00:00 Surgery Adam Garcia [facility] [id number] [facility] 2023-05-28 10:00:47 2023-05-28 10:00:47 Outpatient ADAM [facility]LEY [facility] [id number] [facility] 2023-05-28 00:00:00 2023-05-28 00:00:00 Travel [facility] [id number] [facility] 2023-05-28 00:00:00 2023-05-28 00:00:00 Travel [facility] [id number] [facility] 2023-05-26 09:00:00 2023-05-26 09:00:00 Hospital Encounter Adam Garcia [facility] [id number] [facility] 2023-05-26 09:00:00 2023-05-26 09:00:00 Hospital Encounter Adam Garcia Adi [facility] [id number] [facility] 2023-05-26 00:00:00 2023-05-26 00:00:00 Outpatient ADAM BRANTLEY [facility] [id number] [facility] 2023-05-26 00:00:00 2023-05-26 00:00:00 Outpatient NICOLETTE [facility]ig[facility]to [facility] [id number] [facility] 2023-05-26 00:00:00 2023-05-26 00:00:00 Travel [facility] [id number] [facility] 2023-05-26 00:00:00 2023-05-26 00:00:00 Travel [facility] [id number] [facility] 2023-05-13 11:43:03 2023-05-13 11:43:03 Outpatient [facility] [id number] Tanesha5 Adria Martínez 2023-05-12 00:00:00 2023-05-12 00:00:00 Orders Only Adam Garcia [facility] [id number] [facility] 2023-05-12 00:00:00 2023-05-12 00:00:00 Orders Adam Oneill [facility] [id number] [facility] 2023-05-08 14:11:21 2023-05-08 14:11:21 Outpatient [facility] 1020 Adria Martínez 2023-03-29 19:25:00 2023-04-02 20:48:00 Hospital Encounter ER oCnnie Davey, Mariah Lozoya, Thomas Louisemacho [facility] [id number] [facility] 2023-03-29 19:25:00 2023-04-02 20:48:00 Inpatient ER THOMAS LOZOYA Neurology [id number] [facility] 2023-03-29 19:25:00 2023-04-02 20:48:00 Hospital Encounter Tamica, Connie Aldridge, Mariah Lozoya, Thomas Hopkins [facility] [id number] [facility] 2023-03-31 08:32:56 2023-03-31 00:00:00 Inpatient ER MARIAH ALDRIDGE SLE [id number] [facility] 2023-03-30 10:24:12 2023-03-30 23:59:00 Outpatient ER CONNIE DAVEY SLE [id number] [facility] 2023-03-30 09:40:00 2023-03-30 23:59:00 Hospital Encounter Connie Davey [facility] [id number] [facility] 2023-03-30 09:40:00 2023-03-30 23:59:00 Hospital Encounter Connie Davey [facility] [id number] [facility] 2023-03-30 13:46:20 2023-03-30 13:46:20 Outpatient ER MARIAH ALDRIDGE SLERigoberto SLE [id number] [facility] 2023-03-30 13:46:14 2023-03-30 13:46:14 Outpatient ER MARIAH ALDRIDGE SLERigoberto SLE [id number] [facility] 2023-03-30 10:24:04 2023-03-30 10:24:04 Outpatient ER CONNIE DAVEY [facility] [id number] [facility] 2023-03-30 00:00:00 2023-03-30 00:00:00 Orders Only [facility] [id number] [facility] 2023-03-30 00:00:00 2023-03-30 00:00:00 Travel [facility] [id number] [facility] 2023-03-30 00:00:00 2023-03-30 00:00:00 Orders Only [facility] [id number] [facility] 2023-03-30 00:00:00 2023-03-30 00:00:00 Travel [facility] [id number] [facility] 2022-12-11 08:56:00 2022-12-11 15:29:00 Emergency X Alfonso ALVARADO [facility] ERT [id number] [facility] 2022-12-11 08:56:00 2022-12-11 15:29:00 Emergency Alfonso Alvaradoge [facility] 1.2.840.114 350.1.13.10 4.2.7.2.686 [id number] [facility] 2022-11-17 17:25:00 2022-11-18 01:19:00 Emergency X RITCHIE WARREN [facility] ERT [id number] [facility] 2022-11-17 17:25:00 2022-11-18 01:19:00 Emergency Ritchie Warren E [facility] 1.2.840.114 350.1.13.10 4.2.7.2.686 [id number] [facility] 2022-08-28 00:00:00 2022-08-28 00:00:00 Patient Outreach RkShy BLAYNE WALLACE KENNEDY 1.2.840.114 350.1.13.10 4.2.7.2.686 [id number] [facility] 2022-08-20 00:00:00 2022-08-20 00:00:00 Patient Outreach Shy Beckman RODRIGO BENAVIDES 1.2.840.114 350.1.13.10 4.2.7.2.686 [id number] [facility] 2022-08-02 17:30:00 2022-08-03 14:29:00 Hospital Encounter Halima Guan Kinjal M Ibe, Chimkama Ngozi Cynthia [facility] [id number] [facility] 2022-08-02 17:30:00 2022-08-03 14:29:00 Outpatient ER PARRISH WHEATLEY [facility] Neurology [id number] [facility] 2022-08-03 00:00:00 2022-08-03 00:00:00 Orders Only [facility] [id number] [facility] 2022-08-02 00:00:00 2022-08-02 00:00:00 Travel [facility] [id number] [facility] 2022-07-31 11:42:00 2022-08-01 21:48:00 Inpatient X LORENZA LOWRY [facility] [id number] [facility] 2022-07-31 11:42:00 2022-08-01 21:48:00 Hospital Encounter Sav Rondon Yaman [facility] 1..840.114 350.1.13.10 4.2.7.2.686 [id number] [facility] 2022-08-01 00:00:00 2022-08-01 00:00:00 Transition of Care Nicole Maria Teresa BLAYNE BENAVIDES 1.2.840.114 350.1.13.10 4.2.7.2.686 [id number] [facility] 2022-07-28 14:41:38 2022-07-28 14:41:38 Outpatient SFA [facility] 0109 Adria Martínez 2022-07-28 00:00:00 2022-07-28 00:00:00 Outpatient Visit [id number] 2022-07-24 13:24:40 2022-07-24 13:24:40 Outpatient [facility] [id number] Adria Galan Mauricio 2022-05-23 14:51:01 2022-05-23 14:51:01 Outpatient [facility] 1104 Adria Galan Mauricio 2022-05-23 00:00:00 2022-05-23 00:00:00 Outpatient Visit [id number] 2022-05-04 20:22:00 2022-05-08 14:44:00 Outpatient X ANNEMARIE DUMONTO NAPLES [facility] [id number] [facility] 2022-05-04 20:22:00 2022-05-08 14:44:00 Emergency JonorBrandyn [facility] 1.840.114 350.1.13.10 4.2.7.2.686 [id number] [facility] 2022-04-13 13:06:00 2022-04-15 15:00:00 Inpatient X [facility] BERN[facility] [id number] [facility] 2022-04-13 13:06:00 2022-04-15 15:00:00 Hospital Encounter Sapna Vargas [facility] 1..840.114 350.1.13.10 4.2.7.2.686 [id number] [facility] 2022-02-19 10:20:00 2022-02-19 10:30:00 Imm/Inj Visit Vaccine PowellCarlito Pak [facility] 1.2.840.114 350.1.13.10 4.2.7.2.686 [id number] [facility] 2022-02-19 10:20:00 2022-02-19 10:20:00 Outpatient Terry [facility] [id number] [facility] 2021-11-23 15:07:00 2021-11-23 17:03:00 Emergency NICHELLE BRADY [facility] ERT [id number] [facility] 2021-11-23 15:07:00 2021-11-23 17:03:00 Emergency Sav Rondon Folusho [facility] 1.2.840.114 350.1.13.10 4.2.7.2.686 [id number] [facility] 2021-11-21 09:40:00 2021-11-21 09:40:00 Outpatient R [facility] [id number] [facility] 2021-05-24 09:30:00 2021-05-24 09:30:00 Outpatient Terry [facility] [id number] [facility] 2021-05-24 08:47:51 2021-05-24 08:57:51 Imm/Inj Visit Vaccine Powell Dangelo Pak [facility] 1.2840.114 350.1.13.10 4.2.7.2.686 [id number] [facility] 2021-05-03 09:40:00 2021-05-03 09:59:35 Outpatient Terry [facility] [id number] [facility] 2021-05-03 09:17:43 2021-05-03 09:59:35 Imm/Inj Visit Vaccine, Powell Jose Santiago [facility] 1.840.114 350.1.13.10 4.2.7.2.686 [id number] [facility] 2021-04-16 00:00:00 2021-04-16 00:00:00 Orders Only Doctor Unassigned, Bicknell [facility] 1.2.840.114 350.1.13.10 4.2.7.2.686 [id number] [facility] 2021-03-17 00:00:00 2021-03-17 00:00:00 Telephone Miky Nava [facility] 1.2840.114 350.1.13.10 4.2.7.2.686 [id number] [facility] 2021-03-16 20:08:00 2021-03-16 23:24:00 Emergency Fabrice Chakraborty [facility] 1.2840.114 350.1.13.10 4.2.7.2.686 [id number] [facility] 2021-03-14 18:59:34 2021-03-14 20:19:13 Urgent Care Lydia Desouza Unknown, Attending [facility] 1.114 350.1.13.10 4.2.7.2.686 [id number] [facility] 2021-03-14 19:00:00 2021-03-14 19:00:00 Outpatient R UNKNOWN, ATTENDING [facility] [id number] [facility] 2021-02-19 10:49:00 2021-02-19 14:48:00 Emergency Anali Monroy [facility] 1.2840.114 350.1.13.10 4.2.7.2.686 [id number] [facility] 2019-03-09 00:00:00 2019-03-09 00:00:00 Yehuda Zimmerman [facility] 12.840.114 350.1.13.10 4.2.7.2.686 [id number] 2019-03-09 00:00:00 2019-03-09 00:00:00 Yehuad Zimmerman [facility] 12.840.114 350.1.13.10 4.2.7.2.686 [id number] [facility] Results Test Description Test Time Test Comments Results Result Co mments Source BLOOD [id number] 07:00:10* Test Item Value Reference Range Interpretation Comme nts CULTURE (BEAKER) (test code = 1095) No growth in 5 days XR KNEE 3 VIEWS [id number] 09:27:[facility] 1970 Sex: FXR KNEE 3 VIEWS LEFT CLINICAL INDICATION: S/p fall COMPARISON: NoneFINDINGS: 3views of the left knee.There is no fracture or malalignment. The femorotibial andfemoropatellar joint spaces are intact.No joint fluid is demonstrated.Surrounding soft tissues are unremarkable. Scattered atheroscleroticvascular calcifications.IMPRESSION: No acute fracture or malalignment of the knee Electronically Signed By: Maxim Sultana09/08/2023 09:29 CDTWorkstation Name: [id number] [id number] 08:53:50* Test Item Value Reference Range Interpretation Comme nts POC-Glucose Meter (test code = 1538) 101 mg/dL 70-110 : TESTED AT [address], [address]: Fish Hatchery Inspector/Civil Structural Engineer ID = [id number] for Umeh, Akumbu Lab Interpretation (test code = 41285-0) [facility] [id number] 08:53:50* Test Item Value Reference Range Interpretation Comme nts POC-Glucose Meter (test code = 1538) 101 mg/dL 70-110 : TESTED AT [address], [address]: Fish Hatchery Inspector/Civil Structural Engineer ID = [id number] for Umeh, Akumbu Lab Interpretation (test code = 96909-9) [facility] [id number] 08:53:50* Test Item Value Reference Range Interpretation Comme nts POC-Glucose Meter (test code = 1538) 101 mg/dL 70-110 : TESTED AT [address], [address]: Fish Hatchery Inspector/Civil Structural Engineer ID = [id number] for Umeh, Akumbu Lab Interpretation (test code = 86440-0) [facility] [id number] 08:53:50* Test Item Value Reference Range Interpretation Comme nts POC-Glucose Meter (test code = 1538) 101 mg/dL 70-110 : TESTED AT [address], [address]: Fish Hatchery Inspector/Civil Structural Engineer ID = [id number] for Umeh, Akumbu Lab Interpretation (test code = 73427-2) [facility] [id number] 08:53:50* Test Item Value Reference Range Interpretation Comme nts POC-Glucose Meter (test code = 1538) 101 mg/dL 70-110 : TESTED AT [address], [address]: Fish Hatchery Inspector/Civil Structural Engineer ID = [id number] for Umeh, Akumbu Lab Interpretation (test code = 48490-1) [facility] [id number] 08:53:50* Test Item Value Reference Range Interpretation Comme nts POC-Glucose Meter (test code = 1538) 101 mg/dL 70-110 : TESTED AT [address], [address]: Fish Hatchery Inspector/Civil Structural Engineer ID = [id number] for Umeh, Akumbu Lab Interpretation (test code = 10068-9) [facility] [id number] 08:53:50* Test Item Value Reference Range Interpretation Comme nts POC-Glucose Meter (test code = 1538) 101 mg/dL 70-110 : TESTED AT [address], [address]: Fish Hatchery Inspector/Civil Structural Engineer ID = [id number] for Umeh, Akumbu Lab Interpretation (test code = 12704-5) [facility] [id number] 08:53:50* Test Item Value Reference Range Interpretation Comme nts POC-Glucose Meter (test code = 1538) 101 mg/dL 70-110 : TESTED AT [address], [address]: Fish Hatchery Inspector/Civil Structural Engineer ID = [id number] for Umeh, Akumbu Lab Interpretation (test code = 61674-0) [facility] [id number] 08:53:50* Test Item Value Reference Range Interpretation Comme nts POC-Glucose Meter (test code = 1538) 101 mg/dL 70-110 : TESTED AT [address], [address]: Fish Hatchery Inspector/Civil Structural Engineer ID = [id number] for Umeh, Akumbu Lab Interpretation (test code = 17169-1) [facility] [id number] 08:53:50* Test Item Value Reference Range Interpretation Comme nts POC-Glucose Meter (test code = 1538) 101 mg/dL 70-110 : TESTED AT [address], [address]: Fish Hatchery Inspector/Civil Structural Engineer ID = [id number] for Umeh, Akumbu Lab Interpretation (test code = 68432-4) [facility] [id number] 08:53:50* Test Item Value Reference Range Interpretation Comme nts POC-Glucose Meter (test code = 1538) 101 mg/dL 70-110 : TESTED AT [address], [address]: Fish Hatchery Inspector/Civil Structural Engineer ID = [id number] for Umeh, Akumbu Lab Interpretation (test code = 39345-7) [facility] [id number] 08:53:50* Test Item Value Reference Range Interpretation Comme nts POC-Glucose Meter (test code = 1538) 101 mg/dL 70-110 : TESTED AT [address], [address]: Fish Hatchery Inspector/Civil Structural Engineer ID = [id number] for Umeh, Akumbu Lab Interpretation (test code = 32123-2) [facility] [id number] 08:53:50* Test Item Value Reference Range Interpretation Comme nts POC-Glucose Meter (test code = 1538) 101 mg/dL 70-110 : TESTED AT [address], [address]: Fish Hatchery Inspector/Civil Structural Engineer ID = [id number] for Umeh, Akumbu Lab Interpretation (test code = 42356-7) [facility] [id number] 08:53:50* Test Item Value Reference Range Interpretation Comme nts POC-Glucose Meter (test code = 1538) 101 mg/dL 70-110 : TESTED AT [address], [address]: Fish Hatchery Inspector/Civil Structural Engineer ID = [id number] for Umeh, Akumbu Lab Interpretation (test code = 16977-2) Normal [facility] [id number] 08:53:50* Test Item Value Reference Range Interpretation Comme nts POC-Glucose Meter (test code = 1538) 101 mg/dL 70-110 : TESTED AT [address], [address]: Fish Hatchery Inspector/Civil Structural Engineer ID = [id number] for Umeh, Akumbu Lab Interpretation (test code = 72352-8) [facility] [id number] 08:53:50* Test Item Value Reference Range Interpretation Comme nts POC-Glucose Meter (test code = 1538) 101 mg/dL 70-110 : TESTED AT [address], [address]: Fish Hatchery Inspector/Civil Structural Engineer ID = [id number] for Umeh, Akumbu Lab Interpretation (test code = 21694-0) [facility] [id number] 08:53:50* Test Item Value Reference Range Interpretation Comme nts POC-Glucose Meter (test code = 1538) 101 mg/dL 70-110 : TESTED AT [address], [address]: Fish Hatchery Inspector/Civil Structural Engineer ID = [id number] for Umeh, Akumbu Lab Interpretation (test code = 97992-0) [facility] [id number] 08:53:50* Test Item Value Reference Range Interpretation Comme nts POC-Glucose Meter (test code = 1538) 101 mg/dL 70-110 : TESTED AT [address], [address]: Fish Hatchery Inspector/Civil Structural Engineer ID = [id number] for Umeh, Akumbu Lab Interpretation (test code = 74381-7) [facility] [id number] 08:53:50* Test Item Value Reference Range Interpretation Comme nts POC-Glucose Meter (test code = 1538) 101 mg/dL 70-110 : TESTED AT [address], [address]: Fish Hatchery Inspector/Civil Structural Engineer ID = [id number] for Umeh, Akumbu Lab Interpretation (test code = 57424-7) Normal [facility]-Glucose [id number] 08:53:50* Test Item Value Reference Range Interpretation Comme nts POC-Glucose Meter (test code = 1538) 101 mg/dL 70-110 : TESTED AT [address], [address]: Fish Hatchery Inspector/Civil Structural Engineer ID = [id number] for Umeh, Akumbu Lab Interpretation (test code = 08991-8) Normal [facility]-GLUCOSE [id number] 08:53:50* Test Item Value Reference Range Interpretation Comme nts POC-GLUCOSE METER (BEAKER) (test code = 1538) 101 mg/dL 70-110 : TESTED AT [address], [address]: Fish Hatchery Inspector/Civil Structural Engineer ID = [id number] for Umeh, Akumbu BASIC METABOLIC [id number] 05:40:45* Test Item Value Reference Range Interpretation [...] GFR is not applicable for dialysis patients Fish Hatchery Inspector ID - [id number] 05:40:45* Test Item Value Reference Range Interpretation Comme nts MAGNESIUM (BEAKER) (test cod e = 627) 2.1 mg/dL 1.6-2.6 Fish Hatchery Inspector ID - [id number] 05:40:45* Test Item Value Reference Range Interpretation Comme nts PHOSPHORUS (BEAKER) (test co de = 604) 5.0 mg/dL 2.3-4.7 H Fish Hatchery Inspector ID - [id number] W/PLT COUNT & AUTO [id number] 04:49:23* Test Item Value Reference Range Interpretation [...] code = 2801) 0.40 % 0.00-1.00 POCT-GLUCOSE [id number] 21:40:23* Test Item Value Reference Range Interpretation Comme nts POC-GLUCOSE METER (BEAKER) (test code = 1538) 144 mg/dL 70-110 H : TESTED AT [facility] [address] [facility], [address]: Fish Hatchery Inspector/Civil Structural Engineer ID = [id number] for Baeza, Diana [id number] 04:05:54* Test Item Value Reference Range Interpretation Comme nts MAGNESIUM (BEAKER) (test code = 627) 2.0 mg/dL 1.6-2.6 Specimen sligh tly hemolyzed Fish Hatchery Inspector GEOVANNA CORREA [id number] 04:05:54* Test Item Value Reference Range Interpretation Comme nts PHOSPHORUS (BEAKER) (test code = 604) 4.5 mg/dL 2.3-4.7 Specimen sligh tly hemolyzed Fish Hatchery Inspector GEOVANNA CORREA WBASIC METABOLIC [id number] 04:05:54* Test Item Value Reference Range Interpretation [...] GFR is not applicable for dialysis patients Fish Hatchery Inspector GEOVANNA CORREA WCBC W/PLT COUNT & AUTO [id number] 03:40:48* Test Item Value Reference Range Interpretation [...] code = 2801) 0.30 % 0.00-1.00 POCT-GLUCOSE [id number] 21:28:35* Test Item Value Reference Range Interpretation Comme nts POC-GLUCOSE METER (BEAKER) (test code = 1538) 127 mg/dL 70-110 H : TESTED AT [facility] [address] [facility], [address]: Fish Hatchery Inspector/Civil Structural Engineer ID = [id number] for Ryan Morin POCT-GLUCOSE [id number] 18:49:21* Test Item Value Reference Range Interpretation Comme nts POC-GLUCOSE METER (BEAKER) (test code = 1538) 122 mg/dL 70-110 H : TESTED AT [place] [address] [facility], [address]: Fish Hatchery Inspector/Civil Structural Engineer ID = [id number] for Lauren Santillan POCT-GLUCOSE [id number] 13:27:27* Test Item Value Reference Range Interpretation Comme nts POC-GLUCOSE METER (BEAKER) (test code = 1538) 130 mg/dL 70-110 H : TESTED AT [place] [address] [facility], [address]: Fish Hatchery Inspector/Civil Structural Engineer ID = [id number] for Lauren Santillan [id number] 09:09:14* Test Item Value Reference Range Interpretation Comme nts MAGNESIUM (BEAKER) (test cod e = 627) 2.2 mg/dL 1.6-2.6 [id number] 09:09:14* Test Item Value Reference Range Interpretation Comme nts PHOSPHORUS (BEAKER) (test co de = 604) 4.8 mg/dL 2.3-4.7 H BASIC METABOLIC [id number] 09:09:14* Test Item Value Reference Range Interpretation [...] is not applicable for dialysis patients POCT-GLUCOSE [id number] 08:33:30* Test Item Value Reference Range Interpretation Comme nts POC-GLUCOSE METER (BEAKER) (test code = 1538) 132 mg/dL 70-110 H : TESTED AT [facility] [address] [facility], [address]: Fish Hatchery Inspector/Civil Structural Engineer ID = [id number] for Lauren Santillan CBC W/PLT COUNT & AUTO [id number] 05:47:59* Test Item Value Reference Range Interpretation [...] code = 2801) 0.40 % 0.00-1.00 POCT-GLUCOSE [id number] 21:35:37* Test Item Value Reference Range Interpretation Comme nts POC-GLUCOSE METER (BEAKER) (test code = 1538) 129 mg/dL 70-110 H : TESTED AT [facility] [address] [facility], [address]: Fish Hatchery Inspector/Civil Structural Engineer ID = [id number] for Ryan Morin MR BRAIN WITH & WITHOUT IV [id number] 15:49:58 [facility] : 1970 Sex: FMR BRAIN [...] Signed By: Zeinab Dempsey09/05/2023 15:53 CDTWorkstation Name: [id number] METER 2023-09-05 08:34:25* Test Item Value Reference Range Interpretation Comme nts POC-GLUCOSE METER (BEAKER) (test code = 1538) 115 mg/dL 70-110 H : TESTED AT [facility] [address] [facility], [address]: Fish Hatchery Inspector/Civil Structural Engineer ID = [id number] for DOMINGA AMADOR BASIC METABOLIC [id number] 06:06:56* Test Item Value Reference Range Interpretation [...] GFR is not applicable for dialysis patients Fish Hatchery Inspector ID - [id number] 06:06:56* Test Item Value Reference Range Interpretation Comme nts MAGNESIUM (BEAKER) (test cod e = 627) 2.2 mg/dL 1.6-2.6 Fish Hatchery Inspector ID - [id number] 06:06:56* Test Item Value Reference Range Interpretation Comme nts PHOSPHORUS (BEAKER) (test co de = 604) 3.8 mg/dL 2.3-4.7 Fish Hatchery Inspector ID - ADMINCBC W/PLT COUNT & AUTO [id number] 05:29:32* Test Item Value Reference Range Interpretation [...] code = 2801) 0.50 % 0.00-1.00 POCT-GLUCOSE [id number] 04:55:18* Test Item Value Reference Range Interpretation Comme nts POC-GLUCOSE METER (BEAKER) (test code = 1538) 99 mg/dL 70-110 : TESTED AT [facility] [address] [facility], [address]: Fish Hatchery Inspector/Civil Structural Engineer ID = [id number] for Ryan Morin POCT-GLUCOSE [id number] 21:49:23* Test Item Value Reference Range Interpretation Comme nts POC-GLUCOSE METER (BEAKER) (test code = 1538) 124 mg/dL 70-110 H : TESTED AT [facility] [address] [facility], [address]: Fish Hatchery Inspector/Civil Structural Engineer ID = [id number] for Mikel Reshawn POCT-GLUCOSE [id number] 15:55:53* Test Item Value Reference Range Interpretation Comme nts POC-GLUCOSE METER (BEAKER) (test code = 1538) 126 mg/dL 70-110 H : TESTED AT [facility] [address] [facility], [address]: Fish Hatchery Inspector/Civil Structural Engineer ID = [id number] for Hemanes, Diana'Constance [id number] 12:37:56* Test Item Value Reference Range Interpretation Comme nts PROCALCITONIN (LATOYA) (test code = 3036) < ng/mL <0.05 SEPSIS RISK (ng/mL)Low: 0.05-0.50Intermediate: 0.51-2.00High: >=2.01SARS- CoV2/Influenza/RSV [id number] 12:18:09* Test Item Value Reference Range Interpretation Comments SARS-COV2/RT-PCR (test code = 53612-8) Negative Negative The SARS-CoV-2 target nucleic acids [...] provider. Influenza A RT-PCR (test code = 39954-0) Negative Negative The Flu A target nucleic acids are not detected in this specimen. Influenza B RT-PCR (test code = 52241-8) Negative Negative The Flu B target nucleic acids are not detected in this specimen. RSV by RT-PCR (test code = 58535-6) Negative Negative The RSV target nucleic acids [...] SARS-CoV-2/Flu/RSV by their healthcare provider. Results from [facility] Xpert Xpress SARS-CoV-2/Flu/RSV test should be [...] the Act. Fact Sheet for Healthcare Providers:https://w [employer]/Docu ments/Xpert%20Xpres s%20SARS%20CoV-2/Fa ct%20Sheets/302-390 2%07FWUX-QEU-1%20HE ALTHCARE%20PROVIDER S%20FACT%20SHEET.pd f Fact Sheet for Healthcare Patients:https://[employer]/Docum ents/Xpert%20Xpress %20SARS%20Cov-2/Fac t%20Sheets/302-3801 %07UMEO-ZOS-3%20PAT IENT%20FACT%20SHEET .pdf Lab Interpretation (test code = 75743-1) [facility] [id number] 12:18:09* Test Item Value Reference Range Interpretation Comments SARS-COV2/RT-PCR (test code = 80875-3) Negative Negative The SARS-CoV-2 target nucleic acids [...] provider. Influenza A RT-PCR (test code = 77978-7) Negative Negative The Flu A target nucleic acids are not detected in this specimen. Influenza B RT-PCR (test code = 21945-5) Negative Negative The Flu B target nucleic acids are not detected in this specimen. RSV by RT-PCR (test code = 37064-7) Negative Negative The RSV target nucleic acids [...] the Act. Fact Sheet for Healthcare Providers:https://w [employer]/Docu ments/Xpert%20Xpres s%20SARS%20CoV-2/Fa ct%20Sheets/302-390 2%43HKPL-YTQ-8%20HE ALTHCARE%20PROVIDER S%20FACT%20SHEET.pd f Fact Sheet for Healthcare Patients:https://ww [employer]/Docum ents/Xpert%20Xpress %20SARS%20Cov-2/Fac t%20Sheets/302-3801 %48AJIP-VOF-8%20PAT IENT%20FACT%20SHEET .pdf Lab Interpretation (test code = 94035-6) [facility] [id number] 12:18:09* Test Item Value Reference Range Interpretation Comments SARS-COV2/RT-PCR (test code = 58005-7) Negative Negative The SARS-CoV-2 target nucleic acids [...] provider. Influenza A RT-PCR (test code = 73459-8) Negative Negative The Flu A target nucleic acids are not detected in this specimen. Influenza B RT-PCR (test code = 30413-7) Negative Negative The Flu B target nucleic acids are not detected in this specimen. RSV by RT-PCR (test code = 63932-9) Negative Negative The RSV target nucleic acids [...] SARS-CoV-2/Flu/RSV by their healthcare provider. Results from [facility] Xpert Xpress SARS-CoV-2/Flu/RSV test should be [...] the Act. Fact Sheet for Healthcare Providers:https://w [employer]/Docu ments/Xpert%20Xpres s%20SARS%20CoV-2/Fa ct%20Sheets/302-390 2%95HGBS-BSA-0%20HE ALTHCARE%20PROVIDER S%20FACT%20SHEET.pd f Fact Sheet for Healthcare Patients:https://maria elena [employer]/Docum ents/Xpert%20Xpress %20SARS%20Cov-2/Fac t%20Sheets/302-3801 %73CAVF-VWV-7%20PAT IENT%20FACT%20SHEET .pdf Lab Interpretation (test code = 07649-3) [facility] [id number] 12:18:09* Test Item Value Reference Range Interpretation Comments SARS-COV2/RT-PCR (test code = 26608-1) Negative Negative The SARS-CoV-2 target nucleic acids [...] provider. Influenza A RT-PCR (test code = 74929-4) Negative Negative The Flu A target nucleic acids are not detected in this specimen. Influenza B RT-PCR (test code = 05091-6) Negative Negative The Flu B target nucleic acids are not detected in this specimen. RSV by RT-PCR (test code = 90543-3) Negative Negative The RSV target nucleic acids [...] SARS-CoV-2/Flu/RSV by their healthcare provider. Results from [facility] Xpert Xpress SARS-CoV-2/Flu/RSV test should be [...] the Act. Fact Sheet for Healthcare Providers:https://w [employer]/Docu ments/Xpert%20Xpres s%20SARS%20CoV-2/Fa ct%20Sheets/302-390 2%97LKSJ-IDJ-6%20HE ALTHCARE%20PROVIDER S%20FACT%20SHEET.pd f Fact Sheet for Healthcare Patients:https://[employer]/Docum ents/Xpert%20Xpress %20SARS%20Cov-2/Fac t%20Sheets/302-3801 %56FULH-UOV-6%20PAT IENT%20FACT%20SHEET .pdf Lab Interpretation (test code = 64394-8) [facility] [id number] 12:18:09* Test Item Value Reference Range Interpretation Comments SARS-COV2/RT-PCR (test code = 39226-1) Negative Negative The SARS-CoV-2 target nucleic acids [...] provider. Influenza A RT-PCR (test code = 19756-2) Negative Negative The Flu A target nucleic acids are not detected in this specimen. Influenza B RT-PCR (test code = 64486-5) Negative Negative The Flu B target nucleic acids are not detected in this specimen. RSV by RT-PCR (test code = 45028-8) Negative Negative The RSV target nucleic acids [...] the Act. Fact Sheet for Healthcare Providers:https://w [employer]/Docu ments/Xpert%20Xpres s%20SARS%20CoV-2/Fa ct%20Sheets/302-390 2%11TBYX-EUU-5%20HE ALTHCARE%20PROVIDER S%20FACT%20SHEET.pd f Fact Sheet for Healthcare Patients:https://[employer]/Docum ents/Xpert%20Xpress %20SARS%20Cov-2/Fac t%20Sheets/302-3801 %09BPRD-TMT-7%20PAT IENT%20FACT%20SHEET .pdf Lab Interpretation (test code = 96830-7) [facility] [id number] 12:18:09* Test Item Value Reference Range Interpretation Comments SARS-COV2/RT-PCR (test code = 30229-9) Negative Negative The SARS-CoV-2 target nucleic acids [...] provider. Influenza A RT-PCR (test code = 40754-6) Negative Negative The Flu A target nucleic acids are not detected in this specimen. Influenza B RT-PCR (test code = 04688-4) Negative Negative The Flu B target nucleic acids are not detected in this specimen. RSV by RT-PCR (test code = 71610-4) Negative Negative The RSV target nucleic acids [...] SARS-CoV-2/Flu/RSV by their healthcare provider. Results from [facility] Xpert Xpress SARS-CoV-2/Flu/RSV test should be [...] the Act. Fact Sheet for Healthcare Providers:https://w [employer]/Docu ments/Xpert%20Xpres s%20SARS%20CoV-2/Fa ct%20Sheets/302-390 2%60MBMG-XPM-0%20HE ALTHCARE%20PROVIDER S%20FACT%20SHEET.pd f Fact Sheet for Healthcare Patients:https://[employer]/Docum ents/Xpert%20Xpress %20SARS%20Cov-2/Fac t%20Sheets/302-3801 %90EOOE-JGW-8%20PAT IENT%20FACT%20SHEET .pdf Lab Interpretation (test code = 07006-5) [facility] [id number] 12:18:09* Test Item Value Reference Range Interpretation Comments SARS-COV2/RT-PCR (test code = 71577-5) Negative Negative The SARS-CoV-2 target nucleic acids [...] provider. Influenza A RT-PCR (test code = 87306-3) Negative Negative The Flu A target nucleic acids are not detected in this specimen. Influenza B RT-PCR (test code = 88655-1) Negative Negative The Flu B target nucleic acids are not detected in this specimen. RSV by RT-PCR (test code = 01133-6) Negative Negative The RSV target nucleic acids [...] the Act. Fact Sheet for Healthcare Providers:https://w [employer]/Docu ments/Xpert%20Xpres s%20SARS%20CoV-2/Fa ct%20Sheets/302-390 2%29QXBU-IKU-1%20HE ALTHCARE%20PROVIDER S%20FACT%20SHEET.pd f Fact Sheet for Healthcare Patients:https://ww [employer]/Docum ents/Xpert%20Xpress %20SARS%20Cov-2/Fac t%20Sheets/302-3801 %78HPYL-PGK-3%20PAT IENT%20FACT%20SHEET .pdf Lab Interpretation (test code = 91083-4) [facility] [id number] 12:18:09* Test Item Value Reference Range Interpretation Comments SARS-COV2/RT-PCR (test code = 99207-5) Negative Negative The SARS-CoV-2 target nucleic acids [...] provider. Influenza A RT-PCR (test code = 08727-0) Negative Negative The Flu A target nucleic acids are not detected in this specimen. Influenza B RT-PCR (test code = 25607-5) Negative Negative The Flu B target nucleic acids are not detected in this specimen. RSV by RT-PCR (test code = 21171-6) Negative Negative The RSV target nucleic acids [...] SARS-CoV-2/Flu/RSV by their healthcare provider. Results from [facility] Xpert Xpress SARS-CoV-2/Flu/RSV test should be [...] the Act. Fact Sheet for Healthcare Providers:https://w [employer]/Docu ments/Xpert%20Xpres s%20SARS%20CoV-2/Fa ct%20Sheets/302-390 2%14FQXA-XMU-2%20HE ALTHCARE%20PROVIDER S%20FACT%20SHEET.pd f Fact Sheet for Healthcare Patients:https://maria elena [employer]/Docum ents/Xpert%20Xpress %20SARS%20Cov-2/Fac t%20Sheets/302-3801 %33MCKK-YEX-2%20PAT IENT%20FACT%20SHEET .pdf Lab Interpretation (test code = 95026-7) [facility] [id number] 12:18:09* Test Item Value Reference Range Interpretation Comments SARS-COV2/RT-PCR (test code = 38110-9) Negative Negative The SARS-CoV-2 target nucleic acids [...] provider. Influenza A RT-PCR (test code = 32611-0) Negative Negative The Flu A target nucleic acids are not detected in this specimen. Influenza B RT-PCR (test code = 54401-9) Negative Negative The Flu B target nucleic acids are not detected in this specimen. RSV by RT-PCR (test code = 08168-2) Negative Negative The RSV target nucleic acids [...] the Act. Fact Sheet for Healthcare Providers:https://w [employer]/Docu ments/Xpert%20Xpres s%20SARS%20CoV-2/Fa ct%20Sheets/302-390 2%10OTGF-GYG-6%20HE ALTHCARE%20PROVIDER S%20FACT%20SHEET.pd f Fact Sheet for Healthcare Patients:https://[employer]/Docum ents/Xpert%20Xpress %20SARS%20Cov-2/Fac t%20Sheets/302-3801 %47JQFF-ZCN-8%20PAT IENT%20FACT%20SHEET .pdf Lab Interpretation (test code = 16705-5) [facility] [id number] 12:18:09* Test Item Value Reference Range Interpretation Comments SARS-COV2/RT-PCR (test code = 82739-3) Negative Negative The SARS-CoV-2 target nucleic acids [...] provider. Influenza A RT-PCR (test code = 15437-2) Negative Negative The Flu A target nucleic acids are not detected in this specimen. Influenza B RT-PCR (test code = 98042-4) Negative Negative The Flu B target nucleic acids are not detected in this specimen. RSV by RT-PCR (test code = 17756-3) Negative Negative The RSV target nucleic acids [...] the Act. Fact Sheet for Healthcare Providers:https://w [employer]/Docu ments/Xpert%20Xpres s%20SARS%20CoV-2/Fa ct%20Sheets/302-390 2%92ILUG-EBF-4%20HE ALTHCARE%20PROVIDER S%20FACT%20SHEET.pd f Fact Sheet for Healthcare Patients:https://maria elena [employer]/Docum ents/Xpert%20Xpress %20SARS%20Cov-2/Fac t%20Sheets/302-3801 %10ZERS-IGJ-3%20PAT IENT%20FACT%20SHEET .pdf Lab Interpretation (test code = 74335-0) [facility] [id number] 12:18:09* Test Item Value Reference Range Interpretation Comments SARS-COV2/RT-PCR (test code = 19394-8) Negative Negative The SARS-CoV-2 target nucleic acids [...] provider. Influenza A RT-PCR (test code = 61038-8) Negative Negative The Flu A target nucleic acids are not detected in this specimen. Influenza B RT-PCR (test code = 40415-5) Negative Negative The Flu B target nucleic acids are not detected in this specimen. RSV by RT-PCR (test code = 53565-1) Negative Negative The RSV target nucleic acids [...] SARS-CoV-2/Flu/RSV by their healthcare provider. Results from [facility] Xpert Xpress SARS-CoV-2/Flu/RSV test should be [...] the Act. Fact Sheet for Healthcare Providers:https://w [employer]/Docu ments/Xpert%20Xpres s%20SARS%20CoV-2/Fa ct%20Sheets/302-390 2%03LMKA-IDA-2%20HE ALTHCARE%20PROVIDER S%20FACT%20SHEET.pd f Fact Sheet for Healthcare Patients:https://[employer]/Docum ents/Xpert%20Xpress %20SARS%20Cov-2/Fac t%20Sheets/302-3801 %94HNZK-LDF-3%20PAT IENT%20FACT%20SHEET .pdf Lab Interpretation (test code = 85233-6) [facility] [id number] 12:18:09* Test Item Value Reference Range Interpretation Comments SARS-COV2/RT-PCR (test code = 61630-4) Negative Negative The SARS-CoV-2 target nucleic acids [...] provider. Influenza A RT-PCR (test code = 00144-1) Negative Negative The Flu A target nucleic acids are not detected in this specimen. Influenza B RT-PCR (test code = 58709-8) Negative Negative The Flu B target nucleic acids are not detected in this specimen. RSV by RT-PCR (test code = 69539-7) Negative Negative The RSV target nucleic acids [...] the Act. Fact Sheet for Healthcare Providers:https://w [employer]/Docu ments/Xpert%20Xpres s%20SARS%20CoV-2/Fa ct%20Sheets/302-390 2%27LMDW-UQM-1%20HE ALTHCARE%20PROVIDER S%20FACT%20SHEET.pd f Fact Sheet for Healthcare Patients:https://ww [employer]/Docum ents/Xpert%20Xpress %20SARS%20Cov-2/Fac t%20Sheets/302-3801 %75BBOD-MTJ-0%20PAT IENT%20FACT%20SHEET .pdf Lab Interpretation (test code = 15148-9) [facility] [id number] 12:18:09* Test Item Value Reference Range Interpretation Comments SARS-COV2/RT-PCR (test code = 61094-0) Negative Negative The SARS-CoV-2 target nucleic acids [...] provider. Influenza A RT-PCR (test code = 97430-7) Negative Negative The Flu A target nucleic acids are not detected in this specimen. Influenza B RT-PCR (test code = 65855-9) Negative Negative The Flu B target nucleic acids are not detected in this specimen. RSV by RT-PCR (test code = 31411-0) Negative Negative The RSV target nucleic acids [...] SARS-CoV-2/Flu/RSV by their healthcare provider. Results from [facility] Xpert Xpress SARS-CoV-2/Flu/RSV test should be [...] the Act. Fact Sheet for Healthcare Providers:https://w [employer]/Docu ments/Xpert%20Xpres s%20SARS%20CoV-2/Fa ct%20Sheets/302-390 2%10WRKF-RMY-7%20HE ALTHCARE%20PROVIDER S%20FACT%20SHEET.pd f Fact Sheet for Healthcare Patients:https://ww [employer]/Docum ents/Xpert%20Xpress %20SARS%20Cov-2/Fac t%20Sheets/302-3801 %40CNRH-EUQ-0%20PAT IENT%20FACT%20SHEET .pdf Lab Interpretation (test code = 14041-4) [facility] [id number] 12:18:09* Test Item Value Reference Range Interpretation Comments SARS-COV2/RT-PCR (test code = 21136-7) Negative Negative The SARS-CoV-2 target nucleic acids [...] provider. Influenza A RT-PCR (test code = 98366-7) Negative Negative The Flu A target nucleic acids are not detected in this specimen. Influenza B RT-PCR (test code = 77186-2) Negative Negative The Flu B target nucleic acids are not detected in this specimen. RSV by RT-PCR (test code = 70661-6) Negative Negative The RSV target nucleic acids [...] the Act. Fact Sheet for Healthcare Providers:https://w [employer]/Docu ments/Xpert%20Xpres s%20SARS%20CoV-2/Fa ct%20Sheets/302-390 2%04TZLC-NUI-1%20HE ALTHCARE%20PROVIDER S%20FACT%20SHEET.pd f Fact Sheet for Healthcare Patients:https://maria elena [employer]/Docum ents/Xpert%20Xpress %20SARS%20Cov-2/Fac t%20Sheets/302-3801 %93WZHE-AZE-6%20PAT IENT%20FACT%20SHEET .pdf Lab Interpretation (test code = 58196-6) [facility] [id number] 12:18:09* Test Item Value Reference Range Interpretation Comments SARS-COV2/RT-PCR (test code = 51836-1) Negative Negative The SARS-CoV-2 target nucleic acids [...] provider. Influenza A RT-PCR (test code = 63052-9) Negative Negative The Flu A target nucleic acids are not detected in this specimen. Influenza B RT-PCR (test code = 67714-9) Negative Negative The Flu B target nucleic acids are not detected in this specimen. RSV by RT-PCR (test code = 92394-7) Negative Negative The RSV target nucleic acids [...] the Act. Fact Sheet for Healthcare Providers:https://w [employer]/Docu ments/Xpert%20Xpres s%20SARS%20CoV-2/Fa ct%20Sheets/302-390 2%25YWKD-QAG-3%20HE ALTHCARE%20PROVIDER S%20FACT%20SHEET.pd f Fact Sheet for Healthcare Patients:https://maria elena [employer]/Docum ents/Xpert%20Xpress %20SARS%20Cov-2/Fac t%20Sheets/302-3801 %14STCI-QRF-2%20PAT IENT%20FACT%20SHEET .pdf Lab Interpretation (test code = 38483-3) [facility] [id number] 12:18:09* Test Item Value Reference Range Interpretation Comments SARS-COV2/RT-PCR (test code = 88720-8) Negative Negative The SARS-CoV-2 target nucleic acids [...] provider. Influenza A RT-PCR (test code = 98569-0) Negative Negative The Flu A target nucleic acids are not detected in this specimen. Influenza B RT-PCR (test code = 05161-0) Negative Negative The Flu B target nucleic acids are not detected in this specimen. RSV by RT-PCR (test code = 24044-2) Negative Negative The RSV target nucleic acids [...] SARS-CoV-2/Flu/RSV by their healthcare provider. Results from [facility] Xpert Xpress SARS-CoV-2/Flu/RSV test should be [...] of the Act. Fact Sheet for Healthcare Providers:https://tok tok tok/Docu ments/Xpert%20Xpres s%20SARS%20CoV-2/Fa ct%20Sheets/302-390 2%27ZEFS-SOT-1%20HE ALTHCARE%20PROVIDER S%20FACT%20SHEET.pd f Fact Sheet for Healthcare Patients:https://[employer]/Docum ents/Xpert%20Xpress %20SARS%20Cov-2/Fac t%20Sheets/302-3801 %03NLJY-EQR-3%20PAT IENT%20FACT%20SHEET .pdf Lab Interpretation (test code = 99886-3) [facility] [id number] 12:18:09* Test Item Value Reference Range Interpretation Comments SARS-COV2/RT-PCR (test code = 30072-1) Negative Negative The SARS-CoV-2 target nucleic acids [...] provider. Influenza A RT-PCR (test code = 63057-4) Negative Negative The Flu A target nucleic acids are not detected in this specimen. Influenza B RT-PCR (test code = 85214-5) Negative Negative The Flu B target nucleic acids are not detected in this specimen. RSV by RT-PCR (test code = 38187-8) Negative Negative The RSV target nucleic acids [...] the Act. Fact Sheet for Healthcare Providers:https://w [employer]/Docu ments/Xpert%20Xpres s%20SARS%20CoV-2/Fa ct%20Sheets/302-390 2%49WREG-LIJ-0%20HE ALTHCARE%20PROVIDER S%20FACT%20SHEET.pd f Fact Sheet for Healthcare Patients:https://ww [employer]/Docum ents/Xpert%20Xpress %20SARS%20Cov-2/Fac t%20Sheets/302-3801 %82AQGY-TMI-1%20PAT IENT%20FACT%20SHEET .pdf Lab Interpretation (test code = 16289-9) [facility] [id number] 12:18:09* Test Item Value Reference Range Interpretation Comments SARS-COV2/RT-PCR (test code = 02490-3) Negative Negative The SARS-CoV-2 target nucleic acids [...] provider. Influenza A RT-PCR (test code = 39842-9) Negative Negative The Flu A target nucleic acids are not detected in this specimen. Influenza B RT-PCR (test code = 66585-4) Negative Negative The Flu B target nucleic acids are not detected in this specimen. RSV by RT-PCR (test code = 69053-8) Negative Negative The RSV target nucleic acids [...] SARS-CoV-2/Flu/RSV by their healthcare provider. Results from [facility] Xpert Xpress SARS-CoV-2/Flu/RSV test should be [...] the Act. Fact Sheet for Healthcare Providers:https://w [employer]/Docu ments/Xpert%20Xpres s%20SARS%20CoV-2/Fa ct%20Sheets/302-390 2%12ANJO-BOR-3%20HE ALTHCARE%20PROVIDER S%20FACT%20SHEET.pd f Fact Sheet for Healthcare Patients:https://ww [employer]/Docum ents/Xpert%20Xpress %20SARS%20Cov-2/Fac t%20Sheets/302-3801 %30SNWF-MIU-0%20PAT IENT%20FACT%20SHEET .pdf Lab Interpretation (test code = 73180-6) [facility] [id number] 12:18:09* Test Item Value Reference Range Interpretation Comments SARS-COV2/RT-PCR (test code = 01688-0) Negative Negative The SARS-CoV-2 target nucleic acids [...] provider. Influenza A RT-PCR (test code = 39221-3) Negative Negative The Flu A target nucleic acids are not detected in this specimen. Influenza B RT-PCR (test code = 52015-5) Negative Negative The Flu B target nucleic acids are not detected in this specimen. RSV by RT-PCR (test code = 26779-0) Negative Negative The RSV target nucleic acids [...] of the Act. Fact Sheet for Healthcare Providers:https://tok tok tok/Docu ments/Xpert%20Xpres s%20SARS%20CoV-2/Fa ct%20Sheets/302-390 2%58FJDG-MXV-9%20HE ALTHCARE%20PROVIDER S%20FACT%20SHEET.pd f Fact Sheet for Healthcare Patients:https://[employer]/Docum ents/Xpert%20Xpress %20SARS%20Cov-2/Fac t%20Sheets/302-3801 %38TWUA-JRM-6%20PAT IENT%20FACT%20SHEET .pdf Lab Interpretation (test code = 21229-2) [facility] [id number] 12:18:09* Test Item Value Reference Range Interpretation Comments SARS-COV2/RT-PCR (test code = 67947-0) Negative Negative The SARS-CoV-2 target nucleic acids [...] provider. Influenza A RT-PCR (test code = 45050-5) Negative Negative The Flu A target nucleic acids are not detected in this specimen. Influenza B RT-PCR (test code = 25149-3) Negative Negative The Flu B target nucleic acids are not detected in this specimen. RSV by RT-PCR (test code = 80297-2) Negative Negative The RSV target nucleic acids [...] the Act. Fact Sheet for Healthcare Providers:https://w [employer]/Docu ments/Xpert%20Xpres s%20SARS%20CoV-2/Fa ct%20Sheets/302-390 2%17MSOU-VBI-8%20HE ALTHCARE%20PROVIDER S%20FACT%20SHEET.pd f Fact Sheet for Healthcare Patients:https://maria elena [employer]/Docum ents/Xpert%20Xpress %20SARS%20Cov-2/Fac t%20Sheets/302-3801 %52NXHJ-LTW-4%20PAT IENT%20FACT%20SHEET .pdf Lab Interpretation (test code = 49860-4) [facility]UENZA[facility]RSV [id number] 12:18:09* Test Item Value Reference Range Interpretation Comme nts SARS-COV2/RT-PCR (test code = 2830803) Negative Negative The SARS-CoV-2 t arget nucleic [...] provider. INFLUENZA A RT-PCR (test code = 2625617) Negative Negative The Flu A target nucleic acids are not detected in this specimen. INFLUENZA B RT-PCR (test code = 9847801) Negative Negative The Flu B target nucleic acids are not detected in this specimen. RSV RT-PCR (test code = 6239015) Negative Negative The RSV target n ucleic [...] SARS-CoV-2/Flu/RSV by their healthcare provider. Results from [facility] Xpert Xpress SARS-CoV-2/Flu/RSV test should be [...] 564(g) of the Act.Fact Sheet for Healthcare Providers:https://www.[employer]/Documents/Xpert%20Xpress%20SARS%20CoV-2/Fact%2 0Sheets/3023902%34LLGJ-WHR-3%20HEALTHCARE%20PROVIDERS%20FACT%20SHEET.pdfFact Sheet for Healthcare Patients:https://ww w.[employer]/Documents/Xpert%20Xpress%20SARS%20Cov-2/Fact%20Sheets/3023801%20S ARS-COV-2%20PATIENT%20FACT%20SHEET.pdfPOCT-GLUCOSE [id number] 11:08:35* Test Item Value Reference Range Interpretation Comme nts POC-GLUCOSE METER (BEAKER) (test code = 1538) 111 mg/dL 70-110 H : TESTED AT [facility] [address] [facility] [place], [address]: Fish Hatchery Inspector/Civil Structural Engineer ID = [id number] for Tramaine Daniels POCT-GLUCOSE [id number] 08:16:42* Test Item Value Reference Range Interpretation Comme nts POC-GLUCOSE METER (BEAKER) (test code = 1538) 108 mg/dL 70-110 : TESTED AT [facility] [address] [facility] [place], [address]: Fish Hatchery Inspector/Civil Structural Engineer ID = [id number] for Beata Vargas MR CERVICAL SPINE WITHOUT IV [id number] 07:58:49 [facility] : 1970 [...] spine.Posterior ligament ossifications at the calcifications at V36-D07sggcpvq moderate spinal canal stenosisPosterior disc osteophyte at the T11-T12 level causing mild spinal canalstenosisThe spinal cord is normal in caliber and signal intensity. There is no significant foraminal or spinal canal stenosis.2.1 x 2.3 cm left adrenal nodule, incompletely characterizedParaspinal soft tissues are unremarkable.Lumbar spine:Postoperative changes from posterior decompression at the L3 and M3mutgup. A 1.3 x 1.5 cm (AP by [...] Signed By: Maxim Sultana09/04/2023 08:00 CDTWorkstation Name: [id number] THORACIC SPINE WITHOUT IV [id number] 07:58:49 [facility] 1970 Sex: FMR [...] spine.Posterior ligament ossifications at the calcifications at X81-W47elwomac moderate spinal canal stenosisPosterior disc osteophyte at the T11-T12 level causing mild spinal canalstenosisThe spinal cord is normal in caliber and signal intensity. There is no significant foraminal or spinal canal stenosis.2.1 x 2.3 cm left adrenal nodule, incompletely characterizedParaspinal soft tissues are unremarkable.Lumbar spine:Postoperative changes from posterior decompression at the L3 and W9tnmmaa. A 1.3 x 1.5 cm (AP by [...] Signed By: Maxim Sultana09/04/2023 08:00 CDTWorkstation Name: [id number] LUMBAR SPINE WITHOUT IV [id number] 07:58:49 [facility] 1970 Sex: FMR [...] spine.Posterior ligament ossifications at the calcifications at S89-E38hfwmoqf moderate spinal canal stenosisPosterior disc osteophyte at the T11-T12 level causing mild spinal canalstenosisThe spinal cord is normal in caliber and signal intensity. There is no significant foraminal or spinal canal stenosis.2.1 x 2.3 cm left adrenal nodule, incompletely characterizedParaspinal soft tissues are unremarkable.Lumbar spine:Postoperative changes from posterior decompression at the L3 and X0smehtm. A 1.3 x 1.5 cm (AP by [...] Signed By: Maxim Sultana09/04/2023 08:00 CDTWorkstation Name: [id number] 07:46:14 * Test Item Value Reference Range Interpretation Comme nts FERRITIN (BEAKER) (test code = 361) 31.77 ng/mL 5.00-275.00 Fish Hatchery Inspector ID - hgIRON, TIBC, % SAT. (WITHOUT FERRITIN)2023-09-04 07:24:52* Test Item Value Reference Range Interpretation Comme nts IRON (BEAKER) (test code = 547) 22.0 ug/dL 40.0-160.0 L TOTAL IRON BINDING CAPACITY (BEAKER) (test code = 769) 369 ug/dL 250-450 IRON % SATURATION (2) (BEAKE R) (test code = 2590) 6 % 20-55 L Fish Hatchery Inspector ID - hgCT LUMBAR SPINE WITHOUT IV [id number] 05:42:45 [facility] : 1970 [...] spine:Bones/alignment: Age- indeterminate nondisplaced fracture of the V7oiyaynpru elements, predominantly i nvolving the lamina and [...] Signed By: Suzan Weaver09/04/2023 05:45 CDTWorkstation Name: [id number] THORACIC SPINE WITHOUT IV [id number] 05:42:45 [facility] : 1970 [...] spine:Bones/alignment: Age- indeterminate nondisplaced fracture of the A0knxyjhizc elements, predominantly i nvolving the lamina and [...] Signed By: Suzan Weaver09/04/2023 05:45 CDTWorkstation Name: [id number] 04:44:34* Test Item Value Reference Range Interpretation Comme nts FIBRINOGEN LEVEL (BEAKER) (t est code = 658) 410 mg/dl 225-434 Urinalysis without Artamdcjyof5733-07-67 03:58:52* Test Item Value Reference Range Interpretation Comme nts Color, UA (test code = 5778-6) Light Yellow Clarity, UA (test code = 5767-9) Hazy Specific [place], UA (test code = 5811-5) 1.017 1.001-1.035 pH, UA (test code = 5803-2) 6.0 5.0-8.0 Protein, UA (test code = 89501-4) 10 mg/dL Negative A Glucose, UA (test code = 365) Negative Negative Ketones, UA (test code = 2514-8) Trace Negative A Bilirubin, UA (test code = 93472-3) Negative Negative Blood, UA (test code = 05723-9) Trace Negative A Nitrite, UA (test code = 5802-4) Negative Negative Leukocytes, UA (test code = 5799-2) Negative Negative Urobilinogen, UA (test code = 57026-6) 0.2 0.2-1.0 Specimen Source (test code = 2795) LYNDSAY (test code = LYNDSAY) Fish Hatchery Inspector ID - [auto]Fish Hatchery Inspector ID - tech Lab Interpretation (test code = 19280-9) [facility] Romtkqvvhpe0466-24-68 03:58:52* Test Item Value Reference Range Interpretation Comme nts Color, UA (test code = 5778-6) Light Yellow Clarity, UA (test code = 5767-9) Hazy Specific [place], UA (test code = 5811-5) 1.017 1.001-1.035 pH, UA (test code = 5803-2) 6.0 5.0-8.0 Protein, UA (test code = 44012-1) 10 mg/dL Negative A Glucose, UA (test code = 365) Negative Negative Ketones, UA (test code = 2514-8) Trace Negative A Bilirubin, UA (test code = 77386-5) Negative Negative Blood, UA (test code = 21448-0) Trace Negative A Nitrite, UA (test code = 5802-4) Negative Negative Leukocytes, UA (test code = 5799-2) Negative Negative Urobilinogen, UA (test code = 90287-4) 0.2 0.2-1.0 Specimen Source (test code = 2795) LYNDSAY (test code = LYNDSAY) Fish Hatchery Inspector ID - [auto]Fish Hatchery Inspector ID - tech Lab Interpretation (test code = 01505-1) [facility] Sabavaxsyvn1183-01-22 03:58:52* Test Item Value Reference Range Interpretation Comme nts Color, UA (test code = 5778-6) Light Yellow Clarity, UA (test code = 5767-9) Hazy Specific [place], UA (test code = 5811-5) 1.017 1.001-1.035 pH, UA (test code = 5803-2) 6.0 5.0-8.0 Protein, UA (test code = 10517-8) 10 mg/dL Negative A Glucose, UA (test code = 365) Negative Negative Ketones, UA (test code = 2514-8) Trace Negative A Bilirubin, UA (test code = 35812-6) Negative Negative Blood, UA (test code = 00455-4) Trace Negative A Nitrite, UA (test code = 5802-4) Negative Negative Leukocytes, UA (test code = 5799-2) Negative Negative Urobilinogen, UA (test code = 29011-8) 0.2 0.2-1.0 Specimen Source (test code = 2795) LYNDSAY (test code = LYNDSAY) Fish Hatchery Inspector ID - [auto]Fish Hatchery Inspector ID - tech Lab Interpretation (test code = 83196-6) [facility]normal [facility] Xfgwxhzwgii9809-57-07 03:58:52* Test Item Value Reference Range Interpretation Comme nts Color, UA (test code = 5778-6) Light Yellow Clarity, UA (test code = 5767-9) Hazy Specific [place], UA (test code = 5811-5) 1.017 1.001-1.035 pH, UA (test code = 5803-2) 6.0 5.0-8.0 Protein, UA (test code = 94488-0) 10 mg/dL Negative A Glucose, UA (test code = 365) Negative Negative Ketones, UA (test code = 2514-8) Trace Negative A Bilirubin, UA (test code = 42104-6) Negative Negative Blood, UA (test code = 40971-0) Trace Negative A Nitrite, UA (test code = 5802-4) Negative Negative Leukocytes, UA (test code = 5799-2) Negative Negative Urobilinogen, UA (test code = 37924-8) 0.2 0.2-1.0 Specimen Source (test code = 2795) LYNDSAY (test code = LYNDSAY) Fish Hatchery Inspector ID - [auto]Fish Hatchery Inspector ID - tech Lab Interpretation (test code = 62485-5) [facility] Dwruijybots7434-84-75 03:58:52* Test Item Value Reference Range Interpretation Comme nts Color, UA (test code = 5778-6) Light Yellow Clarity, UA (test code = 5767-9) Hazy Specific [place], UA (test code = 5811-5) 1.017 1.001-1.035 pH, UA (test code = 5803-2) 6.0 5.0-8.0 Protein, UA (test code = 04284-4) 10 mg/dL Negative A Glucose, UA (test code = 365) Negative Negative Ketones, UA (test code = 2514-8) Trace Negative A Bilirubin, UA (test code = 64008-3) Negative Negative Blood, UA (test code = 63266-0) Trace Negative A Nitrite, UA (test code = 5802-4) Negative Negative Leukocytes, UA (test code = 5799-2) Negative Negative Urobilinogen, UA (test code = 46247-3) 0.2 0.2-1.0 Specimen Source (test code = 2795) LYNDSAY (test code = LYNDSAY) Fish Hatchery Inspector ID - [auto]Fish Hatchery Inspector ID - tech Lab Interpretation (test code = 54345-6) [facility]normal [facility] Cxaqisvgbbw2975-43-61 03:58:52* Test Item Value Reference Range Interpretation Comme nts Color, UA (test code = 5778-6) Light Yellow Clarity, UA (test code = 5767-9) Hazy Specific [place], UA (test code = 5811-5) 1.017 1.001-1.035 pH, UA (test code = 5803-2) 6.0 5.0-8.0 Protein, UA (test code = 53912-4) 10 mg/dL Negative A Glucose, UA (test code = 365) Negative Negative Ketones, UA (test code = 2514-8) Trace Negative A Bilirubin, UA (test code = 78393-7) Negative Negative Blood, UA (test code = 81412-7) Trace Negative A Nitrite, UA (test code = 5802-4) Negative Negative Leukocytes, UA (test code = 5799-2) Negative Negative Urobilinogen, UA (test code = 92788-5) 0.2 0.2-1.0 Specimen Source (test code = 2795) LYNDSAY (test code = LYNDSAY) Fish Hatchery Inspector ID - [auto]Fish Hatchery Inspector ID - tech Lab Interpretation (test code = 83985-4) [facility]normal [facility] Onndtshtbzb3722-63-01 03:58:52* Test Item Value Reference Range Interpretation Comme nts Color, UA (test code = 5778-6) Light Yellow Clarity, UA (test code = 5767-9) Hazy Specific [place], UA (test code = 5811-5) 1.017 1.001-1.035 pH, UA (test code = 5803-2) 6.0 5.0-8.0 Protein, UA (test code = 55535-5) 10 mg/dL Negative A Glucose, UA (test code = 365) Negative Negative Ketones, UA (test code = 2514-8) Trace Negative A Bilirubin, UA (test code = 21604-5) Negative Negative Blood, UA (test code = 75917-3) Trace Negative A Nitrite, UA (test code = 5802-4) Negative Negative Leukocytes, UA (test code = 5799-2) Negative Negative Urobilinogen, UA (test code = 24829-3) 0.2 0.2-1.0 Specimen Source (test code = 2795) LYNDSAY (test code = LYNDSAY) Fish Hatchery Inspector ID - [auto]Fish Hatchery Inspector ID - tech Lab Interpretation (test code = 54476-3) [facility]normal [facility] Sjxgsexbjbm0141-56-94 03:58:52* Test Item Value Reference Range Interpretation Comme nts Color, UA (test code = 5778-6) Light Yellow Clarity, UA (test code = 5767-9) Hazy Specific [place], UA (test code = 5811-5) 1.017 1.001-1.035 pH, UA (test code = 5803-2) 6.0 5.0-8.0 Protein, UA (test code = 47952-1) 10 mg/dL Negative A Glucose, UA (test code = 365) Negative Negative Ketones, UA (test code = 2514-8) Trace Negative A Bilirubin, UA (test code = 07846-2) Negative Negative Blood, UA (test code = 29216-5) Trace Negative A Nitrite, UA (test code = 5802-4) Negative Negative Leukocytes, UA (test code = 5799-2) Negative Negative Urobilinogen, UA (test code = 16381-6) 0.2 0.2-1.0 Specimen Source (test code = 2795) LYNDSAY (test code = LYNDSAY) Fish Hatchery Inspector ID - [auto]Fish Hatchery Inspector ID - tech Lab Interpretation (test code = 21623-5) [facility]normal [facility] Xgzovjtjial4845-67-23 03:58:52* Test Item Value Reference Range Interpretation Comme nts Color, UA (test code = 5778-6) Light Yellow Clarity, UA (test code = 5767-9) Hazy Specific [place], UA (test code = 5811-5) 1.017 1.001-1.035 pH, UA (test code = 5803-2) 6.0 5.0-8.0 Protein, UA (test code = 38724-6) 10 mg/dL Negative A Glucose, UA (test code = 365) Negative Negative Ketones, UA (test code = 2514-8) Trace Negative A Bilirubin, UA (test code = 70034-5) Negative Negative Blood, UA (test code = 87120-3) Trace Negative A Nitrite, UA (test code = 5802-4) Negative Negative Leukocytes, UA (test code = 5799-2) Negative Negative Urobilinogen, UA (test code = 91022-7) 0.2 0.2-1.0 Specimen Source (test code = 2795) LYNDSAY (test code = LYNDSAY) Fish Hatchery Inspector ID - [auto]Fish Hatchery Inspector ID - tech Lab Interpretation (test code = 12794-2) [facility]normal [facility] Pcrkrgvuaop1577-57-36 03:58:52* Test Item Value Reference Range Interpretation Comme nts Color, UA (test code = 5778-6) Light Yellow Clarity, UA (test code = 5767-9) Hazy Specific [place], UA (test code = 5811-5) 1.017 1.001-1.035 pH, UA (test code = 5803-2) 6.0 5.0-8.0 Protein, UA (test code = 33945-3) 10 mg/dL Negative A Glucose, UA (test code = 365) Negative Negative Ketones, UA (test code = 2514-8) Trace Negative A Bilirubin, UA (test code = 92464-3) Negative Negative Blood, UA (test code = 52358-0) Trace Negative A Nitrite, UA (test code = 5802-4) Negative Negative Leukocytes, UA (test code = 5799-2) Negative Negative Urobilinogen, UA (test code = 07446-6) 0.2 0.2-1.0 Specimen Source (test code = 2795) LYNDSAY (test code = LYNDSAY) Fish Hatchery Inspector ID - [auto]Fish Hatchery Inspector ID - tech Lab Interpretation (test code = 78553-5) [facility]normal [facility] Vznxbpjirqw1746-96-35 03:58:52* Test Item Value Reference Range Interpretation Comme nts Color, UA (test code = 5778-6) Light Yellow Clarity, UA (test code = 5767-9) Hazy Specific [place], UA (test code = 5811-5) 1.017 1.001-1.035 pH, UA (test code = 5803-2) 6.0 5.0-8.0 Protein, UA (test code = 15144-7) 10 mg/dL Negative A Glucose, UA (test code = 365) Negative Negative Ketones, UA (test code = 2514-8) Trace Negative A Bilirubin, UA (test code = 52417-2) Negative Negative Blood, UA (test code = 12348-8) Trace Negative A Nitrite, UA (test code = 5802-4) Negative Negative Leukocytes, UA (test code = 5799-2) Negative Negative Urobilinogen, UA (test code = 07459-1) 0.2 0.2-1.0 Specimen Source (test code = 2795) LYNDSAY (test code = LYNDSAY) Fish Hatchery Inspector ID - [auto]Fish Hatchery Inspector ID - tech Lab Interpretation (test code = 36188-5) [facility]normal [facility] Mcdpishbpha9874-23-20 03:58:52* Test Item Value Reference Range Interpretation Comme nts Color, UA (test code = 5778-6) Light Yellow Clarity, UA (test code = 5767-9) Hazy Specific [place], UA (test code = 5811-5) 1.017 1.001-1.035 pH, UA (test code = 5803-2) 6.0 5.0-8.0 Protein, UA (test code = 79760-6) 10 mg/dL Negative A Glucose, UA (test code = 365) Negative Negative Ketones, UA (test code = 2514-8) Trace Negative A Bilirubin, UA (test code = 71070-6) Negative Negative Blood, UA (test code = 13853-6) Trace Negative A Nitrite, UA (test code = 5802-4) Negative Negative Leukocytes, UA (test code = 5799-2) Negative Negative Urobilinogen, UA (test code = 87671-1) 0.2 0.2-1.0 Specimen Source (test code = 2795) LYNDSAY (test code = LYNDSAY) Fish Hatchery Inspector ID - [auto]Fish Hatchery Inspector ID - tech Lab Interpretation (test code = 46376-9) [facility]normal [facility] Yarfksxhvhi8361-20-94 03:58:52* Test Item Value Reference Range Interpretation Comme nts Color, UA (test code = 5778-6) Light Yellow Clarity, UA (test code = 5767-9) Hazy Specific [place], UA (test code = 5811-5) 1.017 1.001-1.035 pH, UA (test code = 5803-2) 6.0 5.0-8.0 Protein, UA (test code = 22330-0) 10 mg/dL Negative A Glucose, UA (test code = 365) Negative Negative Ketones, UA (test code = 2514-8) Trace Negative A Bilirubin, UA (test code = 67865-3) Negative Negative Blood, UA (test code = 73442-6) Trace Negative A Nitrite, UA (test code = 5802-4) Negative Negative Leukocytes, UA (test code = 5799-2) Negative Negative Urobilinogen, UA (test code = 43499-1) 0.2 0.2-1.0 Specimen Source (test code = 2795) LYNDSAY (test code = LYNDSAY) Fish Hatchery Inspector ID - [auto]Fish Hatchery Inspector ID - tech Lab Interpretation (test code = 11661-7) [facility]normal [facility] Keraescarao5121-18-26 03:58:52* Test Item Value Reference Range Interpretation Comme nts Color, UA (test code = 5778-6) Light Yellow Clarity, UA (test code = 5767-9) Hazy Specific [place], UA (test code = 5811-5) 1.017 1.001-1.035 pH, UA (test code = 5803-2) 6.0 5.0-8.0 Protein, UA (test code = 59583-0) 10 mg/dL Negative A Glucose, UA (test code = 365) Negative Negative Ketones, UA (test code = 2514-8) Trace Negative A Bilirubin, UA (test code = 03498-3) Negative Negative Blood, UA (test code = 87464-4) Trace Negative A Nitrite, UA (test code = 5802-4) Negative Negative Leukocytes, UA (test code = 5799-2) Negative Negative Urobilinogen, UA (test code = 44003-0) 0.2 0.2-1.0 Specimen Source (test code = 2795) LYNDSAY (test code = LYNDSAY) Fish Hatchery Inspector ID - [auto]Fish Hatchery Inspector ID - tech Lab Interpretation (test code = 85090-5) [facility]normal [facility] Nxlhfkpbqoj4713-69-89 03:58:52* Test Item Value Reference Range Interpretation Comme nts Color, UA (test code = 5778-6) Light Yellow Clarity, UA (test code = 5767-9) Hazy Specific [place], UA (test code = 5811-5) 1.017 1.001-1.035 pH, UA (test code = 5803-2) 6.0 5.0-8.0 Protein, UA (test code = 85096-6) 10 mg/dL Negative A Glucose, UA (test code = 365) Negative Negative Ketones, UA (test code = 2514-8) Trace Negative A Bilirubin, UA (test code = 46851-8) Negative Negative Blood, UA (test code = 89113-8) Trace Negative A Nitrite, UA (test code = 5802-4) Negative Negative Leukocytes, UA (test code = 5799-2) Negative Negative Urobilinogen, UA (test code = 79498-5) 0.2 0.2-1.0 Specimen Source (test code = 2795) LYNDSAY (test code = LYNDSAY) Fish Hatchery Inspector ID - [auto]Fish Hatchery Inspector ID - tech Lab Interpretation (test code = 73153-5) [facility]normal [facility] Wmcgiiuyigc1185-28-09 03:58:52* Test Item Value Reference Range Interpretation Comme nts Color, UA (test code = 5778-6) Light Yellow Clarity, UA (test code = 5767-9) Hazy Specific [place], UA (test code = 5811-5) 1.017 1.001-1.035 pH, UA (test code = 5803-2) 6.0 5.0-8.0 Protein, UA (test code = 76421-7) 10 mg/dL Negative A Glucose, UA (test code = 365) Negative Negative Ketones, UA (test code = 2514-8) Trace Negative A Bilirubin, UA (test code = 86374-8) Negative Negative Blood, UA (test code = 80654-4) Trace Negative A Nitrite, UA (test code = 5802-4) Negative Negative Leukocytes, UA (test code = 5799-2) Negative Negative Urobilinogen, UA (test code = 87418-2) 0.2 0.2-1.0 Specimen Source (test code = 2795) LYNDSAY (test code = LYNDSAY) Fish Hatchery Inspector ID - [auto]Fish Hatchery Inspector ID - tech Lab Interpretation (test code = 75061-1) [facility]normal [facility] Hkjxggjfpjy3419-14-05 03:58:52* Test Item Value Reference Range Interpretation Comme nts Color, UA (test code = 5778-6) Light Yellow Clarity, UA (test code = 5767-9) Hazy Specific [place], UA (test code = 5811-5) 1.017 1.001-1.035 pH, UA (test code = 5803-2) 6.0 5.0-8.0 Protein, UA (test code = 45107-8) 10 mg/dL Negative A Glucose, UA (test code = 365) Negative Negative Ketones, UA (test code = 2514-8) Trace Negative A Bilirubin, UA (test code = 33828-3) Negative Negative Blood, UA (test code = 29506-2) Trace Negative A Nitrite, UA (test code = 5802-4) Negative Negative Leukocytes, UA (test code = 5799-2) Negative Negative Urobilinogen, UA (test code = 20499-6) 0.2 0.2-1.0 Specimen Source (test code = 2795) LYNDSAY (test code = LYNDSAY) Fish Hatchery Inspector ID - [auto]Fish Hatchery Inspector ID - tech Lab Interpretation (test code = 92163-7) [facility]normal [facility] Mbdepddpmmw6352-56-51 03:58:52* Test Item Value Reference Range Interpretation Comme nts Color, UA (test code = 5778-6) Light Yellow Clarity, UA (test code = 5767-9) Hazy Specific [place], UA (test code = 5811-5) 1.017 1.001-1.035 pH, UA (test code = 5803-2) 6.0 5.0-8.0 Protein, UA (test code = 04359-9) 10 mg/dL Negative A Glucose, UA (test code = 365) Negative Negative Ketones, UA (test code = 2514-8) Trace Negative A Bilirubin, UA (test code = 20127-0) Negative Negative Blood, UA (test code = 26631-3) Trace Negative A Nitrite, UA (test code = 5802-4) Negative Negative Leukocytes, UA (test code = 5799-2) Negative Negative Urobilinogen, UA (test code = 61536-3) 0.2 0.2-1.0 Specimen Source (test code = 2795) LYNDSAY (test code = LYNDSAY) Fish Hatchery Inspector ID - [auto]Fish Hatchery Inspector ID - tech Lab Interpretation (test code = 73601-2) [facility]normal [facility] Gmvobpucgtw2833-29-97 03:58:52* Test Item Value Reference Range Interpretation Comme nts Color, UA (test code = 5778-6) Light Yellow Clarity, UA (test code = 5767-9) Hazy Specific [place], UA (test code = 5811-5) 1.017 1.001-1.035 pH, UA (test code = 5803-2) 6.0 5.0-8.0 Protein, UA (test code = 88560-6) 10 mg/dL Negative A Glucose, UA (test code = 365) Negative Negative Ketones, UA (test code = 2514-8) Trace Negative A Bilirubin, UA (test code = 42630-2) Negative Negative Blood, UA (test code = 39583-4) Trace Negative A Nitrite, UA (test code = 5802-4) Negative Negative Leukocytes, UA (test code = 5799-2) Negative Negative Urobilinogen, UA (test code = 96066-9) 0.2 0.2-1.0 Specimen Source (test code = 2795) LYNDSAY (test code = LYNDSAY) Fish Hatchery Inspector ID - [auto]Fish Hatchery Inspector ID - tech Lab Interpretation (test code = 83028-0) [facility] Hrbxidcjlys6673-90-19 03:58:52* Test Item Value Reference Range Interpretation Comme nts Color, UA (test code = 5778-6) Light Yellow Clarity, UA (test code = 5767-9) Hazy Specific [place], UA (test code = 5811-5) 1.017 1.001-1.035 pH, UA (test code = 5803-2) 6.0 5.0-8.0 Protein, UA (test code = 51239-8) 10 mg/dL Negative A Glucose, UA (test code = 365) Negative Negative Ketones, UA (test code = 2514-8) Trace Negative A Bilirubin, UA (test code = 50200-6) Negative Negative Blood, UA (test code = 12133-9) Trace Negative A Nitrite, UA (test code = 5802-4) Negative Negative Leukocytes, UA (test code = 5799-2) Negative Negative Urobilinogen, UA (test code = 93520-3) 0.2 0.2-1.0 Specimen Source (test code = 2795) LYNDSAY (test code = LYNDSAY) Fish Hatchery Inspector ID - [auto]Fish Hatchery Inspector ID - tech Lab Interpretation (test code = 40438-6) [facility]normal [facility] SZMYUWQBAVX4791-13-73 03:58:52* Test Item Value Reference Range Interpretation [...] 0.2 0.2-1.0 SOURCE(BEAKER) (test code = 2795) Fish Hatchery Inspector ID - [auto]Fish Hatchery Inspector ID - techCBC W/PLT COUNT & AUTO [...] 2801) 0.70 % 0.00-1.00 Rapid drug screen, fehgy9307-86-97 02:20:15* Test Item Value Reference Range Interpretation Comme nts Barbiturate Screen (test code = 44796-6) Negative Negative Benzodiazepine Screen (test code = 10327-6) Negative Negative Cocaine (Metab.) Screen (test code = 3397-7) Positive Negative A Methadone Screen (test code = 84293-2) Negative Negative Opiate Screen (test code = 81788-2) Negative Negative Cannabinoid Screen (test code = 38539-5) Positive Negative A Amph/Methamph Screen (test code = 32659-7) Negative Negative Phencyclidine Screen (test code = 00909-3) Negative Negative pH, UA (test code = 5803-2) 6.0 5.0-8.0 LYNDSAY (test code = LYNDSAY) DRUG CUTOFF CONC.Cocaine 300 ng/mL Cannabinoid 50 ng/mLBenzodiazepine 200 ng/mLBarbiturate 200 ng/mLPhencyclidine 25 ng/mLOpiate 300 ng/mLMethadone 300 ng/mLAmphetamine/ 1000 ng/mL Methamphetamine This assay provides an unconfirmed qualitative test result for the clinical management of patients in emergency situations. Chain of custody not maintained. Some liaw-sky-tkoegaq medications, as well as adulterants, may cause inaccurate results. Clinical correlation should be applied. A more comprehensive drug screen or confirmation of a detected drug may be performed upon request.Fish Hatchery Inspector ID - ADMIN Lab Interpretation (test code = 27613-1) [facility]normal [facility], geete6804-20-35 02:20:15* Test Item Value Reference Range Interpretation Comme nts Barbiturate Screen (test code = 76174-3) Negative Negative Benzodiazepine Screen (test code = 46128-8) Negative Negative Cocaine (Metab.) Screen (test code = 3397-7) Positive Negative A Methadone Screen (test code = 84227-9) Negative Negative Opiate Screen (test code = 76459-6) Negative Negative Cannabinoid Screen (test code = 10188-6) Positive Negative A Amph/Methamph Screen (test code = 51491-0) Negative Negative Phencyclidine Screen (test code = 62925-8) Negative Negative pH, UA (test code = 5803-2) 6.0 5.0-8.0 LYNDSAY (test code = LYNDSAY) DRUG CUTOFF CONC.Cocaine 300 ng/mL Cannabinoid 50 ng/mLBenzodiazepine 200 ng/mLBarbiturate 200 ng/mLPhencyclidine 25 ng/mLOpiate 300 ng/mLMethadone 300 ng/mLAmphetamine/ 1000 ng/mL Methamphetamine This assay provides an unconfirmed qualitative test result for the clinical management of patients in emergency situations. Chain of custody not maintained. Some jrdp-krm-uqbmxlt medications, as well as adulterants, may cause inaccurate results. Clinical correlation should be applied. A more comprehensive drug screen or confirmation of a detected drug may be performed upon request.Fish Hatchery Inspector ID - ADMIN Lab Interpretation (test code = 75690-2) [facility]normal [facility], szgoo3212-73-14 02:20:15* Test Item Value Reference Range Interpretation Comme nts Barbiturate Screen (test code = 95965-0) Negative Negative Benzodiazepine Screen (test code = 69065-1) Negative Negative Cocaine (Metab.) Screen (test code = 3397-7) Positive Negative A Methadone Screen (test code = 53929-3) Negative Negative Opiate Screen (test code = 61757-5) Negative Negative Cannabinoid Screen (test code = 48275-4) Positive Negative A Amph/Methamph Screen (test code = 08565-8) Negative Negative Phencyclidine Screen (test code = 68658-6) Negative Negative pH, UA (test code = 5803-2) 6.0 5.0-8.0 LYNDSAY (test code = LYNDSAY) DRUG CUTOFF CONC.Cocaine 300 ng/mL Cannabinoid 50 ng/mLBenzodiazepine 200 ng/mLBarbiturate 200 ng/mLPhencyclidine 25 ng/mLOpiate 300 ng/mLMethadone 300 ng/mLAmphetamine/ 1000 ng/mL Methamphetamine This assay provides an unconfirmed qualitative test result for the clinical management of patients in emergency situations. Chain of custody not maintained. Some izda-vdv-jzwcewm medications, as well as adulterants, may cause inaccurate results. Clinical correlation should be applied. A more comprehensive drug screen or confirmation of a detected drug may be performed upon request.Fish Hatchery Inspector ID - ADMIN Lab Interpretation (test code = 25566-6) [facility]normal [facility], [id number] 02:20:15* Test Item Value Reference Range Interpretation Comme nts Barbiturate Screen (test code = 63150-9) Negative Negative Benzodiazepine Screen (test code = 22585-7) Negative Negative Cocaine (Metab.) Screen (test code = 3397-7) Positive Negative A Methadone Screen (test code = 40149-9) Negative Negative Opiate Screen (test code = 97919-2) Negative Negative Cannabinoid Screen (test code = 03945-2) Positive Negative A Amph/Methamph Screen (test code = 06596-8) Negative Negative Phencyclidine Screen (test code = 63745-7) Negative Negative pH, UA (test code = 5803-2) 6.0 5.0-8.0 LYNDSAY (test code = LYNDSAY) DRUG CUTOFF CONC.Cocaine 300 ng/mL Cannabinoid 50 ng/mLBenzodiazepine 200 ng/mLBarbiturate 200 ng/mLPhencyclidine 25 ng/mLOpiate 300 ng/mLMethadone 300 ng/mLAmphetamine/ 1000 ng/mL Methamphetamine This assay provides an unconfirmed qualitative test result for the clinical management of patients in emergency situations. Chain of custody not maintained. Some wdal-yyx-fqnhomw medications, as well as adulterants, may cause inaccurate results. Clinical correlation should be applied. A more comprehensive drug screen or confirmation of a detected drug may be performed upon request.Fish Hatchery Inspector ID - ADMIN Lab Interpretation (test code = 01205-9) [facility], [id number] 02:20:15* Test Item Value Reference Range Interpretation Comme nts Barbiturate Screen (test code = 20111-5) Negative Negative Benzodiazepine Screen (test code = 97611-4) Negative Negative Cocaine (Metab.) Screen (test code = 3397-7) Positive Negative A Methadone Screen (test code = 08101-1) Negative Negative Opiate Screen (test code = 65227-1) Negative Negative Cannabinoid Screen (test code = 82490-4) Positive Negative A Amph/Methamph Screen (test code = 11697-9) Negative Negative Phencyclidine Screen (test code = 59730-7) Negative Negative pH, UA (test code = 5803-2) 6.0 5.0-8.0 LYNDSAY (test code = LYNDSAY) DRUG CUTOFF CONC.Cocaine 300 ng/mL Cannabinoid 50 ng/mLBenzodiazepine 200 ng/mLBarbiturate 200 ng/mLPhencyclidine 25 ng/mLOpiate 300 ng/mLMethadone 300 ng/mLAmphetamine/ 1000 ng/mL Methamphetamine This assay provides an unconfirmed qualitative test result for the clinical management of patients in emergency situations. Chain of custody not maintained. Some bldm-txt-gajlisl medications, as well as adulterants, may cause inaccurate results. Clinical correlation should be applied. A more comprehensive drug screen or confirmation of a detected drug may be performed upon request.Fish Hatchery Inspector ID - ADMIN Lab Interpretation (test code = 83663-0) [facility], [id number] 02:20:15* Test Item Value Reference Range Interpretation Comme nts Barbiturate Screen (test code = 75658-1) Negative Negative Benzodiazepine Screen (test code = 69269-7) Negative Negative Cocaine (Metab.) Screen (test code = 3397-7) Positive Negative A Methadone Screen (test code = 85197-5) Negative Negative Opiate Screen (test code = 02952-6) Negative Negative Cannabinoid Screen (test code = 74569-2) Positive Negative A Amph/Methamph Screen (test code = 62122-3) Negative Negative Phencyclidine Screen (test code = 30207-7) Negative Negative pH, UA (test code = 5803-2) 6.0 5.0-8.0 LYNDSAY (test code = LYNDSAY) DRUG CUTOFF CONC.Cocaine 300 ng/mL Cannabinoid 50 ng/mLBenzodiazepine 200 ng/mLBarbiturate 200 ng/mLPhencyclidine 25 ng/mLOpiate 300 ng/mLMethadone 300 ng/mLAmphetamine/ 1000 ng/mL Methamphetamine This assay provides an unconfirmed qualitative test result for the clinical management of patients in emergency situations. Chain of custody not maintained. Some xnfb-ird-ozboyee medications, as well as adulterants, may cause inaccurate results. Clinical correlation should be applied. A more comprehensive drug screen or confirmation of a detected drug may be performed upon request.Fish Hatchery Inspector ID - ADMIN Lab Interpretation (test code = 53851-1) [facility] [id number] 02:20:15* Test Item Value Reference Range Interpretation Comme nts Barbiturate Screen (test code = 24696-2) Negative Negative Benzodiazepine Screen (test code = 55766-5) Negative Negative Cocaine (Metab.) Screen (test code = 3397-7) Positive Negative A Methadone Screen (test code = 28486-2) Negative Negative Opiate Screen (test code = 65347-7) Negative Negative Cannabinoid Screen (test code = 99230-9) Positive Negative A Amph/Methamph Screen (test code = 09825-4) Negative Negative Phencyclidine Screen (test code = 17266-7) Negative Negative pH, UA (test code = 5803-2) 6.0 5.0-8.0 LYNDSAY (test code = LYNDSAY) DRUG CUTOFF CONC.Cocaine 300 ng/mL Cannabinoid 50 ng/mLBenzodiazepine 200 ng/mLBarbiturate 200 ng/mLPhencyclidine 25 ng/mLOpiate 300 ng/mLMethadone 300 ng/mLAmphetamine/ 1000 ng/mL Methamphetamine This assay provides an unconfirmed qualitative test result for the clinical management of patients in emergency situations. Chain of custody not maintained. Some siqd-eqp-geimfoz medications, as well as adulterants, may cause inaccurate results. Clinical correlation should be applied. A more comprehensive drug screen or confirmation of a detected drug may be performed upon request.Fish Hatchery Inspector ID - ADMIN Lab Interpretation (test code = 83534-3) [facility], [id number] 02:20:15* Test Item Value Reference Range Interpretation Comme nts Barbiturate Screen (test code = 48508-3) Negative Negative Benzodiazepine Screen (test code = 13615-3) Negative Negative Cocaine (Metab.) Screen (test code = 3397-7) Positive Negative A Methadone Screen (test code = 57422-7) Negative Negative Opiate Screen (test code = 94973-6) Negative Negative Cannabinoid Screen (test code = 23560-7) Positive Negative A Amph/Methamph Screen (test code = 82878-8) Negative Negative Phencyclidine Screen (test code = 44047-9) Negative Negative pH, UA (test code = 5803-2) 6.0 5.0-8.0 LYNDSAY (test code = LYNDSAY) DRUG CUTOFF CONC.Cocaine 300 ng/mL Cannabinoid 50 ng/mLBenzodiazepine 200 ng/mLBarbiturate 200 ng/mLPhencyclidine 25 ng/mLOpiate 300 ng/mLMethadone 300 ng/mLAmphetamine/ 1000 ng/mL Methamphetamine This assay provides an unconfirmed qualitative test result for the clinical management of patients in emergency situations. Chain of custody not maintained. Some tpbe-zup-xdkvdts medications, as well as adulterants, may cause inaccurate results. Clinical correlation should be applied. A more comprehensive drug screen or confirmation of a detected drug may be performed upon request.Fish Hatchery Inspector ID - ADMIN Lab Interpretation (test code = 65886-2) [facility], [id number] 02:20:15* Test Item Value Reference Range Interpretation Comme nts Barbiturate Screen (test code = 07597-0) Negative Negative Benzodiazepine Screen (test code = 12204-3) Negative Negative Cocaine (Metab.) Screen (test code = 3397-7) Positive Negative A Methadone Screen (test code = 16304-7) Negative Negative Opiate Screen (test code = 46226-6) Negative Negative Cannabinoid Screen (test code = 52210-1) Positive Negative A Amph/Methamph Screen (test code = 58094-2) Negative Negative Phencyclidine Screen (test code = 48948-6) Negative Negative pH, UA (test code = 5803-2) 6.0 5.0-8.0 LYNDSAY (test code = LYNDSAY) DRUG CUTOFF CONC.Cocaine 300 ng/mL Cannabinoid 50 ng/mLBenzodiazepine 200 ng/mLBarbiturate 200 ng/mLPhencyclidine 25 ng/mLOpiate 300 ng/mLMethadone 300 ng/mLAmphetamine/ 1000 ng/mL Methamphetamine This assay provides an unconfirmed qualitative test result for the clinical management of patients in emergency situations. Chain of custody not maintained. Some tvtw-iat-uqheycr medications, as well as adulterants, may cause inaccurate results. Clinical correlation should be applied. A more comprehensive drug screen or confirmation of a detected drug may be performed upon request.Fish Hatchery Inspector ID - ADMIN Lab Interpretation (test code = 22060-9) [facility], [id number] 02:20:15* Test Item Value Reference Range Interpretation Comme nts Barbiturate Screen (test code = 31784-8) Negative Negative Benzodiazepine Screen (test code = 59448-6) Negative Negative Cocaine (Metab.) Screen (test code = 3397-7) Positive Negative A Methadone Screen (test code = 82559-2) Negative Negative Opiate Screen (test code = 99999-1) Negative Negative Cannabinoid Screen (test code = 08017-6) Positive Negative A Amph/Methamph Screen (test code = 89553-5) Negative Negative Phencyclidine Screen (test code = 89223-9) Negative Negative pH, UA (test code = 5803-2) 6.0 5.0-8.0 LYNDSAY (test code = LYNDSAY) DRUG CUTOFF CONC.Cocaine 300 ng/mL Cannabinoid 50 ng/mLBenzodiazepine 200 ng/mLBarbiturate 200 ng/mLPhencyclidine 25 ng/mLOpiate 300 ng/mLMethadone 300 ng/mLAmphetamine/ 1000 ng/mL Methamphetamine This assay provides an unconfirmed qualitative test result for the clinical management of patients in emergency situations. Chain of custody not maintained. Some enur-xgq-jznghsm medications, as well as adulterants, may cause inaccurate results. Clinical correlation should be applied. A more comprehensive drug screen or confirmation of a detected drug may be performed upon request.Fish Hatchery Inspector ID - ADMIN Lab Interpretation (test code = 24128-2) [facility], [id number] 02:20:15* Test Item Value Reference Range Interpretation Comme nts Barbiturate Screen (test code = 10704-6) Negative Negative Benzodiazepine Screen (test code = 28509-8) Negative Negative Cocaine (Metab.) Screen (test code = 3397-7) Positive Negative A Methadone Screen (test code = 54579-4) Negative Negative Opiate Screen (test code = 19358-5) Negative Negative Cannabinoid Screen (test code = 41920-2) Positive Negative A Amph/Methamph Screen (test code = 10868-5) Negative Negative Phencyclidine Screen (test code = 58053-6) Negative Negative pH, UA (test code = 5803-2) 6.0 5.0-8.0 LYNDSAY (test code = LYNDSAY) DRUG CUTOFF CONC.Cocaine 300 ng/mL Cannabinoid 50 ng/mLBenzodiazepine 200 ng/mLBarbiturate 200 ng/mLPhencyclidine 25 ng/mLOpiate 300 ng/mLMethadone 300 ng/mLAmphetamine/ 1000 ng/mL Methamphetamine This assay provides an unconfirmed qualitative test result for the clinical management of patients in emergency situations. Chain of custody not maintained. Some miey-pyi-cglgnmh medications, as well as adulterants, may cause inaccurate results. Clinical correlation should be applied. A more comprehensive drug screen or confirmation of a detected drug may be performed upon request.Fish Hatchery Inspector ID - ADMIN Lab Interpretation (test code = 37379-0) [facility], [id number] 02:20:15* Test Item Value Reference Range Interpretation Comme nts Barbiturate Screen (test code = 74745-3) Negative Negative Benzodiazepine Screen (test code = 73530-6) Negative Negative Cocaine (Metab.) Screen (test code = 3397-7) Positive Negative A Methadone Screen (test code = 89390-3) Negative Negative Opiate Screen (test code = 34861-1) Negative Negative Cannabinoid Screen (test code = 22163-6) Positive Negative A Amph/Methamph Screen (test code = 33467-4) Negative Negative Phencyclidine Screen (test code = 83026-7) Negative Negative pH, UA (test code = 5803-2) 6.0 5.0-8.0 LYNDSAY (test code = LYNDSAY) DRUG CUTOFF CONC.Cocaine 300 ng/mL Cannabinoid 50 ng/mLBenzodiazepine 200 ng/mLBarbiturate 200 ng/mLPhencyclidine 25 ng/mLOpiate 300 ng/mLMethadone 300 ng/mLAmphetamine/ 1000 ng/mL Methamphetamine This assay provides an unconfirmed qualitative test result for the clinical management of patients in emergency situations. Chain of custody not maintained. Some lxfc-rzj-dbbffoa medications, as well as adulterants, may cause inaccurate results. Clinical correlation should be applied. A more comprehensive drug screen or confirmation of a detected drug may be performed upon request.Fish Hatchery Inspector ID - ADMIN Lab Interpretation (test code = 98108-8) [facility]normal [facility], [id number] 02:20:15* Test Item Value Reference Range Interpretation Comme nts Barbiturate Screen (test code = 92346-6) Negative Negative Benzodiazepine Screen (test code = 47375-1) Negative Negative Cocaine (Metab.) Screen (test code = 3397-7) Positive Negative A Methadone Screen (test code = 74244-3) Negative Negative Opiate Screen (test code = 90167-3) Negative Negative Cannabinoid Screen (test code = 21848-7) Positive Negative A Amph/Methamph Screen (test code = 66900-9) Negative Negative Phencyclidine Screen (test code = 15613-0) Negative Negative pH, UA (test code = 5803-2) 6.0 5.0-8.0 LYNDSAY (test code = LYNDSAY) DRUG CUTOFF CONC.Cocaine 300 ng/mL Cannabinoid 50 ng/mLBenzodiazepine 200 ng/mLBarbiturate 200 ng/mLPhencyclidine 25 ng/mLOpiate 300 ng/mLMethadone 300 ng/mLAmphetamine/ 1000 ng/mL Methamphetamine This assay provides an unconfirmed qualitative test result for the clinical management of patients in emergency situations. Chain of custody not maintained. Some lchs-rcp-fyzqlqd medications, as well as adulterants, may cause inaccurate results. Clinical correlation should be applied. A more comprehensive drug screen or confirmation of a detected drug may be performed upon request.Fish Hatchery Inspector ID - ADMIN Lab Interpretation (test code = 41290-1) [facility]normal [facility], [id number] 02:20:15* Test Item Value Reference Range Interpretation Comme nts Barbiturate Screen (test code = 67250-2) Negative Negative Benzodiazepine Screen (test code = 99185-0) Negative Negative Cocaine (Metab.) Screen (test code = 3397-7) Positive Negative A Methadone Screen (test code = 87968-5) Negative Negative Opiate Screen (test code = 83615-3) Negative Negative Cannabinoid Screen (test code = 87486-8) Positive Negative A Amph/Methamph Screen (test code = 27396-0) Negative Negative Phencyclidine Screen (test code = 49740-0) Negative Negative pH, UA (test code = 5803-2) 6.0 5.0-8.0 LYNDSAY (test code = LYNDSAY) DRUG CUTOFF CONC.Cocaine 300 ng/mL Cannabinoid 50 ng/mLBenzodiazepine 200 ng/mLBarbiturate 200 ng/mLPhencyclidine 25 ng/mLOpiate 300 ng/mLMethadone 300 ng/mLAmphetamine/ 1000 ng/mL Methamphetamine This assay provides an unconfirmed qualitative test result for the clinical management of patients in emergency situations. Chain of custody not maintained. Some xmfo-uqf-hlqoquj medications, as well as adulterants, may cause inaccurate results. Clinical correlation should be applied. A more comprehensive drug screen or confirmation of a detected drug may be performed upon request.Fish Hatcher[employer] Inspector ID - ADMIN Lab Interpretation (test code = 18759-2) [facility]normal [facility], [id number] 02:20:15* Test Item Value Reference Range Interpretation Comme nts Barbiturate Screen (test code = 41504-6) Negative Negative Benzodiazepine Screen (test code = 46810-9) Negative Negative Cocaine (Metab.) Screen (test code = 3397-7) Positive Negative A Methadone Screen (test code = 67710-2) Negative Negative Opiate Screen (test code = 10349-9) Negative Negative Cannabinoid Screen (test code = 52766-4) Positive Negative A Amph/Methamph Screen (test code = 43669-6) Negative Negative Phencyclidine Screen (test code = 27960-2) Negative Negative pH, UA (test code = 5803-2) 6.0 5.0-8.0 LYNDSAY (test code = LYNDSAY) DRUG CUTOFF CONC.Cocaine 300 ng/mL Cannabinoid 50 ng/mLBenzodiazepine 200 ng/mLBarbiturate 200 ng/mLPhencyclidine 25 ng/mLOpiate 300 ng/mLMethadone 300 ng/mLAmphetamine/ 1000 ng/mL Methamphetamine This assay provides an unconfirmed qualitative test result for the clinical management of patients in emergency situations. Chain of custody not maintained. Some midb-obu-lmwatld medications, as well as adulterants, may cause inaccurate results. Clinical correlation should be applied. A more comprehensive drug screen or confirmation of a detected drug may be performed upon request.Fish Hatcher[employer] Inspector ID - ADMIN Lab Interpretation (test code = 26476-5) [facility]normal [facility], [id number] 02:20:15* Test Item Value Reference Range Interpretation Comme nts Barbiturate Screen (test code = 56815-7) Negative Negative Benzodiazepine Screen (test code = 50628-3) Negative Negative Cocaine (Metab.) Screen (test code = 3397-7) Positive Negative A Methadone Screen (test code = 42174-4) Negative Negative Opiate Screen (test code = 56445-3) Negative Negative Cannabinoid Screen (test code = 42275-9) Positive Negative A Amph/Methamph Screen (test code = 17814-6) Negative Negative Phencyclidine Screen (test code = 22454-9) Negative Negative pH, UA (test code = 5803-2) 6.0 5.0-8.0 LYNDSAY (test code = LYNDSAY) DRUG CUTOFF CONC.Cocaine 300 ng/mL Cannabinoid 50 ng/mLBenzodiazepine 200 ng/mLBarbiturate 200 ng/mLPhencyclidine 25 ng/mLOpiate 300 ng/mLMethadone 300 ng/mLAmphetamine/ 1000 ng/mL Methamphetamine This assay provides an unconfirmed qualitative test result for the clinical management of patients in emergency situations. Chain of custody not maintained. Some ezat-bjn-bnahmie medications, as well as adulterants, may cause inaccurate results. Clinical correlation should be applied. A more comprehensive drug screen or confirmation of a detected drug may be performed upon request.Fish Hatcher[employer] Inspector ID - ADMIN Lab Interpretation (test code = 32101-1) [facility]normal [facility], [id number] 02:20:15* Test Item Value Reference Range Interpretation Comme nts Barbiturate Screen (test code = 07619-1) Negative Negative Benzodiazepine Screen (test code = 64399-4) Negative Negative Cocaine (Metab.) Screen (test code = 3397-7) Positive Negative A Methadone Screen (test code = 12718-7) Negative Negative Opiate Screen (test code = 72775-9) Negative Negative Cannabinoid Screen (test code = 57225-1) Positive Negative A Amph/Methamph Screen (test code = 43961-3) Negative Negative Phencyclidine Screen (test code = 94322-5) Negative Negative pH, UA (test code = 5803-2) 6.0 5.0-8.0 LYNDSAY (test code = LYNDSAY) DRUG CUTOFF CONC.Cocaine 300 ng/mL Cannabinoid 50 ng/mLBenzodiazepine 200 ng/mLBarbiturate 200 ng/mLPhencyclidine 25 ng/mLOpiate 300 ng/mLMethadone 300 ng/mLAmphetamine/ 1000 ng/mL Methamphetamine This assay provides an unconfirmed qualitative test result for the clinical management of patients in emergency situations. Chain of custody not maintained. Some pewz-atk-yoxdzcl medications, as well as adulterants, may cause inaccurate results. Clinical correlation should be applied. A more comprehensive drug screen or confirmation of a detected drug may be performed upon request.Fish Hatcher[employer] Inspector ID - ADMIN Lab Interpretation (test code = 12472-3) [facility]normal [facility], [id number] 02:20:15* Test Item Value Reference Range Interpretation Comme nts Barbiturate Screen (test code = 96397-6) Negative Negative Benzodiazepine Screen (test code = 46362-5) Negative Negative Cocaine (Metab.) Screen (test code = 3397-7) Positive Negative A Methadone Screen (test code = 38661-3) Negative Negative Opiate Screen (test code = 93874-9) Negative Negative Cannabinoid Screen (test code = 85209-0) Positive Negative A Amph/Methamph Screen (test code = 15939-6) Negative Negative Phencyclidine Screen (test code = 86972-0) Negative Negative pH, UA (test code = 5803-2) 6.0 5.0-8.0 LYNDSAY (test code = LYNDSAY) DRUG CUTOFF CONC.Cocaine 300 ng/mL Cannabinoid 50 ng/mLBenzodiazepine 200 ng/mLBarbiturate 200 ng/mLPhencyclidine 25 ng/mLOpiate 300 ng/mLMethadone 300 ng/mLAmphetamine/ 1000 ng/mL Methamphetamine This assay provides an unconfirmed qualitative test result for the clinical management of patients in emergency situations. Chain of custody not maintained. Some kubq-kjg-jcqqdzq medications, as well as adulterants, may cause inaccurate results. Clinical correlation should be applied. A more comprehensive drug screen or confirmation of a detected drug may be performed upon request.Fish Hatcher[employer] Inspector ID - ADMIN Lab Interpretation (test code = 35998-6) [facility]normal [facility], [id number] 02:20:15* Test Item Value Reference Range Interpretation Comme nts Barbiturate Screen (test code = 18731-0) Negative Negative Benzodiazepine Screen (test code = 64876-7) Negative Negative Cocaine (Metab.) Screen (test code = 3397-7) Positive Negative A Methadone Screen (test code = 78377-9) Negative Negative Opiate Screen (test code = 78390-6) Negative Negative Cannabinoid Screen (test code = 42167-3) Positive Negative A Amph/Methamph Screen (test code = 05683-6) Negative Negative Phencyclidine Screen (test code = 69618-2) Negative Negative pH, UA (test code = 5803-2) 6.0 5.0-8.0 LYNDSAY (test code = LYNDSAY) DRUG CUTOFF CONC.Cocaine 300 ng/mL Cannabinoid 50 ng/mLBenzodiazepine 200 ng/mLBarbiturate 200 ng/mLPhencyclidine 25 ng/mLOpiate 300 ng/mLMethadone 300 ng/mLAmphetamine/ 1000 ng/mL Methamphetamine This assay provides an unconfirmed qualitative test result for the clinical management of patients in emergency situations. Chain of custody not maintained. Some zvir-tgx-sujrbjd medications, as well as adulterants, may cause inaccurate results. Clinical correlation should be applied. A more comprehensive drug screen or confirmation of a detected drug may be performed upon request.Fish Hatcher[employer] Inspector ID - ADMIN Lab Interpretation (test code = 25178-6) [facility]normal [facility], [id number] 02:20:15* Test Item Value Reference Range Interpretation Comme nts Barbiturate Screen (test code = 03941-1) Negative Negative Benzodiazepine Screen (test code = 77911-9) Negative Negative Cocaine (Metab.) Screen (test code = 3397-7) Positive Negative A Methadone Screen (test code = 67337-4) Negative Negative Opiate Screen (test code = 81050-0) Negative Negative Cannabinoid Screen (test code = 28278-1) Positive Negative A Amph/Methamph Screen (test code = 45998-5) Negative Negative Phencyclidine Screen (test code = 04105-3) Negative Negative pH, UA (test code = 5803-2) 6.0 5.0-8.0 LYNDSAY (test code = LYNDSAY) DRUG CUTOFF CONC.Cocaine 300 ng/mL Cannabinoid 50 ng/mLBenzodiazepine 200 ng/mLBarbiturate 200 ng/mLPhencyclidine 25 ng/mLOpiate 300 ng/mLMethadone 300 ng/mLAmphetamine/ 1000 ng/mL Methamphetamine This assay provides an unconfirmed qualitative test result for the clinical management of patients in emergency situations. Chain of custody not maintained. Some cbld-yvo-ogcglpm medications, as well as adulterants, may cause inaccurate results. Clinical correlation should be applied. A more comprehensive drug screen or confirmation of a detected drug may be performed upon request.Fish Hat[employer] Inspector ID - ADMIN Lab Interpretation (test code = 72593-5) [facility], [id number] 02:20:15* Test Item Value Reference Range Interpretation [...] situations. Chain of custody not maintained. Some sekt-slh-qszekhm medications, as well asadulterants, may cause inaccurate results. Clinical correlation should be applied. A more comprehensive drug screen or confirmation of a detected drug may be performed upon request.[employer] Inspector ID - ADMINB-TYPE NATRIURETIC FACTOR (BNP)2023-09-04 02:11:53* Test Item Value Reference Range Interpretation Comme nts B-TYPE NATRIURETIC PEPTIDE (BEAKER) (test code = 700) 1761 pg/mL 0-100 H [employer] Inspector ID - ADMINLACTIC ACID, [id number] 02:10:37* Test Item Value Reference Range Interpretation Comme nts LACTATE BLOOD VENOUS (2) (BEAKER) (test code = 2872) 1.04 mmol/L 0.50-2.00 Specimen slightl y hemolyzed [employer] Inspector ID - [id number] 02:04:37* Test Item Value Reference Range Interpretation Comme nts PHOSPHORUS (BEAKER) (test code = 604) 4.2 mg/dL 2.3-4.7 Specimen sligh tly hemolyzed [employer] Inspector ID - ADMINCOMPREHENSIVE METABOLIC [id number] 02:04:37* Test Item Value Reference Range Interpretation [...] GFR is not applicable for dialysis patients [employer] Inspector ID - [id number] 02:04:36* Test Item Value Reference Range Interpretation Comme nts MAGNESIUM (BEAKER) (test code = 627) 2.1 mg/dL 1.6-2.6 Specimen sligh tly hemolyzed [employer] Inspector ID - [id number] 01:45:13* Test Item Value Reference Range Interpretation [...] code = 760) 28.5 seconds 22.5-36.0 PROTHROMBIN [id number] 01:42:15* Test Item Value Reference Range Interpretation Comme nts PROTIME (BEAKER) (test code = 759) 15.8 seconds 11.9-14.2 H INR (BEAKER) (test code = 370) 1.25 <=5.90 RECOMMENDED COUMADIN/WARFARIN INR THERAPY RANGESSTANDARD DOSE: 2.0 - 3.0 Includes: PROPHYLAXIS for venous thrombosis, systemic embolization; TREATMENT for venous thrombosis and/or pulmonary embolus.HIGH RISK: Target INR is 2.5-3.5 for patients with mechanical heart valves.Lactic Acid Whole [id number] 20:51:22* Test Item Value Reference Range Interpretation Comme nts LACTIC ACID (test code = 5393480242) 1.56 mmol/L 0.50-2.20 Lab Interpretation (test cod e = 05030-3) [id number] 07:00:09* Test Item Value Reference Range Interpretation Comme nts CULTURE (BEAKER) (test code = 1095) No growth in 5 days BLOOD [id number] 07:00:09* Test Item Value Reference Range Interpretation Comme nts CULTURE (BEAKER) (test code = 1095) No growth in 5 days T-SPOT(R).[id number] 18:35:00* Test Item Value Reference Range Interpretation Comme nts T-SPOT.TB (test code = 5554935) Negative SeeBelow Normal Value: Ne gativeA negative [...] CORRECTED FOR NEG CONTROL (test code = 8425265) 1 PANEL B SPOT COUNT CORRECTED FOR NEG CONTROL (test code = 8563933) 0 NEGATIVE CONTROL (test code = 0142012) Passed POSITIVE CONTROL (test code = 6006205) Passed LYNDSAY (test code = LYNDSAY) [id number] [id number] 18:35:00* Test Item Value Reference Range Interpretation [...] CORRECTED FOR NEG CONTROL (test code = 3690199) 1 PANEL B SPOT COUNT CORRECTED FOR NEG CONTROL (test code = 3132237) 0 NEGATIVE CONTROL (test code = 3540038) Passed POSITIVE CONTROL (test code = 0853293) Passed LYNDSAY (test code = LYNDSAY) [id number] [facility][id number] 18:35:00* Test Item Value Reference Range Interpretation [...] 20150905) 0 NEGATIVE CONTROL (test code = 8326231) Passed POSITIVE CONTROL (test code = 20150907) Passed LYNDSAY (test code = LYNDSAY) [id number] [facility][id number] 18:35:00* Test Item Value Reference Range Interpretation [...] 20150905) 0 NEGATIVE CONTROL (test code = 0161190) Passed POSITIVE CONTROL (test code = 4366788) Passed LYNDSAY (test code = LYNDSAY) [id number] [facility][id number] 18:35:00* Test Item Value Reference Range Interpretation Comme nts T-SPOT.TB (test code = 5673512) Negative SeeBelow Normal Value: Ne gativeA negative [...] CORRECTED FOR NEG CONTROL (test code = 8646157) 1 PANEL B SPOT COUNT CORRECTED FOR NEG CONTROL (test code = 3324811) 0 NEGATIVE CONTROL (test code = 8370972) Passed POSITIVE CONTROL (test code = 7053926) Passed LYNDSAY (test code = LYNDSAY) [id number] [facility][id number] 18:35:00* Test Item Value Reference Range Interpretation Comme nts T-SPOT.TB (test code = 6245401) Negative SeeBelow Normal Value: Ne gativeA negative [...] CORRECTED FOR NEG CONTROL (test code = 1226181) 1 PANEL B SPOT COUNT CORRECTED FOR NEG CONTROL (test code = 4437087) 0 NEGATIVE CONTROL (test code = 5691227) Passed POSITIVE CONTROL (test code = 4563005) Passed LYNDSAY (test code = LYNDSAY) [id number] [facility][id number] 18:35:00* Test Item Value Reference Range Interpretation [...] CORRECTED FOR NEG CONTROL (test code = 5251017) 0 NEGATIVE CONTROL (test code = 9728202) Passed POSITIVE CONTROL (test code = 6494540) Passed LYNDSAY (test code = LYNDSAY) [id number] [facility][id number] 18:35:00* Test Item Value Reference Range Interpretation Comme nts T-SPOT.TB (test code = 6929803) Negative SeeBelow Normal Value: Ne gativeA negative [...] 20150905) 0 NEGATIVE CONTROL (test code = 5707886) Passed POSITIVE CONTROL (test code = 3299375) Passed LYNDSAY (test code = LYNDSAY) [id number] [facility][id number] 18:35:00* Test Item Value Reference Range Interpretation [...] 20150905) 0 NEGATIVE CONTROL (test code = 6148084) Passed POSITIVE CONTROL (test code = 20150907) Passed LYNDSAY (test code = LYNDSAY) [id number] [facility][id number] 18:35:00* Test Item Value Reference Range Interpretation [...] 20150907) Passed LYNDSAY (test code = LYNDSAY) [id number] [facility][id number] 18:35:00* Test Item Value Reference Range Interpretation Comme nts T-SPOT.TB (test code = 8676639) Negative SeeBelow Normal Value: Ne gativeA negative [...] CORRECTED FOR NEG CONTROL (test code = 5709775) 1 PANEL B SPOT COUNT CORRECTED FOR NEG CONTROL (test code = 20150905) 0 NEGATIVE CONTROL (test code = 1567324) Passed POSITIVE CONTROL (test code = 4985720) Passed LYNDSAY (test code = LYNDSAY) [id number] [facility][id number] 18:35:00* Test Item Value Reference Range Interpretation Comme nts T-SPOT.TB (test code = 5150485) Negative SeeBelow Normal Value: Ne gativeA negative [...] CORRECTED FOR NEG CONTROL (test code = 9067457) 1 PANEL B SPOT COUNT CORRECTED FOR NEG CONTROL (test code = 7405917) 0 NEGATIVE CONTROL (test code = 1186247) Passed POSITIVE CONTROL (test code = 7713685) Passed LYNDSAY (test code = LYNDSAY) [id number] [facility][id number] 18:35:00* Test Item Value Reference Range Interpretation Comme nts T-SPOT.TB (test code = 7042130) Negative SeeBelow Normal Value: Ne gativeA negative [...] CORRECTED FOR NEG CONTROL (test code = 8990813) 0 NEGATIVE CONTROL (test code = 9592195) Passed POSITIVE CONTROL (test code = 8649664) Passed LYNDSAY (test code = LYNDSAY) [id number] [facility][id number] 18:35:00* Test Item Value Reference Range Interpretation Comme nts T-SPOT.TB (test code = 9698538) Negative SeeBelow Normal Value: Ne gativeA negative [...] CORRECTED FOR NEG CONTROL (test code = 8686695) 0 NEGATIVE CONTROL (test code = 7720943) Passed POSITIVE CONTROL (test code = 20150907) Passed LYNDSAY (test code = LYNDSAY) [id number] [facility][id number] 18:35:00* Test Item Value Reference Range Interpretation Comme nts T-SPOT.TB (test code = 74570-9) Negative SeeBelow Normal Value: Ne gativeA negative [...] CORRECTED FOR NEG CONTROL (test code = 61138-9) 0 NEGATIVE CONTROL (test code = 12564-9) Passed POSITIVE CONTROL (test code = 00834-0) Passed LYNDSAY (test code = LYNDSAY) [id number] [facility][id number] 18:35:00* Test Item Value Reference Range Interpretation Comme nts T-SPOT.TB (test code = 03766-7) [facility] Value: Ne gativeA negative test result [...] CORRECTED FOR NEG CONTROL (test code = 14720-1) 0 NEGATIVE CONTROL (test code = 64883-3) Passed POSITIVE CONTROL (test code = 30298-7) Passed LYNDSAY (test code = LYNDSAY) [id number] [facility][id number] 18:35:00* Test Item Value Reference Range Interpretation Comme nts T-SPOT.TB (test code = 29395-2) Negative SeeBelow Normal Value: Ne gativeA negative [...] CORRECTED FOR NEG CONTROL (test code = 16495-7) 0 NEGATIVE CONTROL (test code = 27923-7) Passed POSITIVE CONTROL (test code = 07406-5) Passed LYNDSAY (test code = LYNDSAY) [id number] [facility][id number] 18:35:00* Test Item Value Reference Range Interpretation Comme nts T-SPOT.TB (test code = 46609-3) Negative SeeBelow Normal Value: Ne gativeA negative [...] CORRECTED FOR NEG CONTROL (test code = 09259-8) 0 NEGATIVE CONTROL (test code = 39535-6) Passed POSITIVE CONTROL (test code = 56287-2) Passed LYNDSAY (test code = LYNDSAY) [id number] [facility][id number] 18:35:00* Test Item Value Reference Range Interpretation Comme nts T-SPOT.TB (test code = 45315-5) Negative SeeBelow Normal Value: Ne gativeA negative [...] CORRECTED FOR NEG CONTROL (test code = 44041-1) 0 NEGATIVE CONTROL (test code = 15207-4) Passed POSITIVE CONTROL (test code = 14772-2) Passed LYNDSAY (test code = LYNDSAY) [id number] [facility][id number] 18:35:00* Test Item Value Reference Range Interpretation Comme nts T-SPOT.TB (test code = 47149-3) Negative SeeBelow Normal Value: Ne gativeA negative [...] CORRECTED FOR NEG CONTROL (test code = 51439-5) 0 NEGATIVE CONTROL (test code = 93026-6) Passed POSITIVE CONTROL (test code = 61472-0) Passed LYNDSAY (test code = LYNDSAY) [id number] [facility][id number] 18:35:00* Test Item Value Reference Range Interpretation Comme nts T-SPOT.TB (test code = 37419-8) Negative SeeBelow Normal Value: Ne gativeA negative [...] CORRECTED FOR NEG CONTROL (test code = 58554-0) 0 NEGATIVE CONTROL (test code = 67574-2) Passed POSITIVE CONTROL (test code = 49738-6) Passed LYNDSAY (test code = LYNDSAY) [id number] [facility][id number] 18:35:00* Test Item Value Reference Range Interpretation Comme nts T-SPOT.TB (test code = 04115-3) Negative SeeBelow Normal Value: Ne gativeA negative [...] CORRECTED FOR NEG CONTROL (test code = 07583-4) 0 NEGATIVE CONTROL (test code = 47742-5) Passed POSITIVE CONTROL (test code = 43451-5) Passed LYNDSAY (test code = LYNDSAY) [id number] [facility][id number] 18:35:00* Test Item Value Reference Range Interpretation Comme nts T-SPOT.TB (test code = 23591-0) Negative SeeBelow Normal Value: Ne gativeA negative [...] CORRECTED FOR NEG CONTROL (test code = 88526-5) 0 NEGATIVE CONTROL (test code = 09753-5) Passed POSITIVE CONTROL (test code = 47928-5) Passed LYNDSAY (test code = LYNDSAY) [id number] [facility][id number] 18:35:00* Test Item Value Reference Range Interpretation Comme nts T-SPOT.TB (test code = 09885-9) Negative SeeBelow Normal Value: Ne gativeA negative [...] CORRECTED FOR NEG CONTROL (test code = 01170-6) 0 NEGATIVE CONTROL (test code = 51217-3) Passed POSITIVE CONTROL (test code = 60006-6) Passed LYNDSAY (test code = LYNDSAY) [id number] [facility][id number] 18:35:00* Test Item Value Reference Range Interpretation Comme nts T-SPOT.TB (test code = 94529-1) Negative SeeBelow Normal Value: Ne gativeA negative [...] CORRECTED FOR NEG CONTROL (test code = 21681-8) 0 NEGATIVE CONTROL (test code = 88869-1) Passed POSITIVE CONTROL (test code = 90952-6) Passed LYNDSAY (test code = LYNDSAY) [id number] [facility][id number] 18:35:00* Test Item Value Reference Range Interpretation Comme nts T-SPOT.TB (test code = 66317-3) Negative SeeBelow Normal Value: Ne gativeA negative [...] CORRECTED FOR NEG CONTROL (test code = 10126-9) 0 NEGATIVE CONTROL (test code = 81468-8) Passed POSITIVE CONTROL (test code = 97062-6) Passed LYNDSAY (test code = LYNDSAY) [id number] [facility][id number] 18:35:00* Test Item Value Reference Range Interpretation Comme nts T-SPOT.TB (test code = 16273-1) Negative SeeBelow Normal Value: Ne gativeA negative [...] CORRECTED FOR NEG CONTROL (test code = 15599-1) 0 NEGATIVE CONTROL (test code = 76584-8) Passed POSITIVE CONTROL (test code = 22728-8) Passed LYNDSAY (test code = LYNDSAY) [id number] [facility][id number] 18:35:00* Test Item Value Reference Range Interpretation Comme nts T-SPOT.TB (test code = 32589-3) Negative SeeBelow Normal Value: Ne gativeA negative [...] CORRECTED FOR NEG CONTROL (test code = 38143-4) 0 NEGATIVE CONTROL (test code = 50680-4) Passed POSITIVE CONTROL (test code = 50404-0) Passed LYNDSAY (test code = LYNDSAY) [id number] [facility][id number] 18:35:00* Test Item Value Reference Range Interpretation Comme nts T-SPOT.TB (test code = 30044-1) Negative SeeBelow Normal Value: Ne gativeA negative [...] CORRECTED FOR NEG CONTROL (test code = 55984-9) 0 NEGATIVE CONTROL (test code = 51560-5) Passed POSITIVE CONTROL (test code = 34669-8) Passed LYNDSAY (test code = LYNDSAY) [id number] [facility][id number] 18:35:00* Test Item Value Reference Range Interpretation Comme nts T-SPOT.TB (test code = 51127-7) Negative SeeBelow Normal Value: Ne gativeA negative [...] CORRECTED FOR NEG CONTROL (test code = 62837-1) 0 NEGATIVE CONTROL (test code = 78713-9) Passed POSITIVE CONTROL (test code = 50514-7) Passed LYNDSAY (test code = LYNDSAY) [id number] [facility][id number] 18:35:00* Test Item Value Reference Range Interpretation Comme nts T-SPOT.TB (test code = 92723-6) Negative SeeBelow Normal Value: Ne gativeA negative [...] CORRECTED FOR NEG CONTROL (test code = 61561-7) 0 NEGATIVE CONTROL (test code = 46350-0) Passed POSITIVE CONTROL (test code = 25943-2) Passed LYNDSAY (test code = LYNDSAY) [id number] [facility][id number] 18:35:00* Test Item Value Reference Range Interpretation Comme nts T-SPOT.TB (test code = 92268-0) Negative SeeBelow Normal Value: Ne gativeA negative [...] CORRECTED FOR NEG CONTROL (test code = 47508-1) 0 NEGATIVE CONTROL (test code = 07112-0) Passed POSITIVE CONTROL (test code = 40161-6) Passed LYNDSAY (test code = LYNDSAY) [id number] [facility][id number] 18:35:00* Test Item Value Reference Range Interpretation Comme nts T-SPOT.TB (test code = 34504-8) Negative SeeBelow Normal Value: Ne gativeA negative [...] CORRECTED FOR NEG CONTROL (test code = 03741-4) 0 NEGATIVE CONTROL (test code = 97831-4) Passed POSITIVE CONTROL (test code = 65671-8) Passed LYNDSAY (test code = LYNDSAY) [id number] [facility][id number] 18:35:00* Test Item Value Reference Range Interpretation Comme nts T-SPOT.TB (test code = 28192-5) Negative SeeBelow Normal Value: Ne gativeA negative [...] CORRECTED FOR NEG CONTROL (test code = 85526-7) 0 NEGATIVE CONTROL (test code = 85021-0) Passed POSITIVE CONTROL (test code = 53907-7) Passed LYNDSAY (test code = LYNDSAY) [id number] [facility][id number] 18:35:00* Test Item Value Reference Range Interpretation Comme nts T-SPOT.TB (test code = 38479-8) Negative SeeBelow Normal Value: Ne gativeA negative [...] CORRECTED FOR NEG CONTROL (test code = 98080-4) 0 NEGATIVE CONTROL (test code = 58762-5) Passed POSITIVE CONTROL (test code = 97724-2) Passed LYNDSAY (test code = YLNDSAY) [id number] [facility][id number] 18:35:00* Test Item Value Reference Range Interpretation Comme nts T-SPOT.TB (test code = 91316-4) Negative SeeBelow Normal Value: Ne gativeA negative [...] CORRECTED FOR NEG CONTROL (test code = 48600-1) 0 NEGATIVE CONTROL (test code = 50571-1) Passed POSITIVE CONTROL (test code = 46891-5) Passed LYNDSAY (test code = LYNDSAY) [id number] [facility][id number] 18:35:00* Test Item Value Reference Range Interpretation Comme nts T-SPOT.TB (test code = 07199-1) Negative SeeBelow Normal Value: Ne gativeA negative [...] CORRECTED FOR NEG CONTROL (test code = 07372-2) 0 NEGATIVE CONTROL (test code = 89790-1) Passed POSITIVE CONTROL (test code = 41877-2) Passed LYNDSAY (test code = LYNDSAY) [id number] [facility][id number] 18:35:00* Test Item Value Reference Range Interpretation Comme nts T-SPOT.TB (test code = 52827-1) Negative SeeBelow Normal Value: Ne gativeA negative [...] CORRECTED FOR NEG CONTROL (test code = 72719-8) 0 NEGATIVE CONTROL (test code = 46953-0) Passed POSITIVE CONTROL (test code = 74113-1) Passed LYNDSAY (test code = LYNDSAY) [id number] [facility][id number] 18:35:00* Test Item Value Reference Range Interpretation Comme nts T-SPOT.TB (test code = 57221-8) Negative SeeBelow Normal Value: Ne gativeA negative [...] CORRECTED FOR NEG CONTROL (test code = 61482-8) 0 NEGATIVE CONTROL (test code = 74415-7) Passed POSITIVE CONTROL (test code = 34052-9) Passed LYNDSAY (test code = LYNDSAY) [id number] [facility][id number] 18:35:00* Test Item Value Reference Range Interpretation Comme nts T-SPOT.TB (test code = 5305488) Negative SeeBelow Normal Value: Ne gativeA negative [...] CORRECTED FOR NEG CONTROL (test code = 1477152) 1 PANEL B SPOT COUNT CORRECTED FOR NEG CONTROL (test code = 4284330) 0 NEGATIVE CONTROL (test code = 6362117) Passed POSITIVE CONTROL (test code = 1512586) Passed LYNDSAY (test code = LYNDSAY) [id number] [facility][id number] 18:35:00* Test Item Value Reference Range Interpretation Comme nts T-SPOT.TB (test code = 1504076) Negative SeeBelow Normal Value: Ne gativeA negative [...] CORRECTED FOR NEG CONTROL (test code = 8155977) 1 PANEL B SPOT COUNT CORRECTED FOR NEG CONTROL (test code = 0019669) 0 NEGATIVE CONTROL (test code = 2332502) Passed POSITIVE CONTROL (test code = 4408115) Passed LYNDSAY (test code = LYNDSAY) [id number] [facility][id number] 18:35:00* Test Item Value Reference Range Interpretation Comme nts T-SPOT.TB (test code = 7852446) Negative SeeBelow Normal Value: Ne gativeA negative [...] 20150905) 0 NEGATIVE CONTROL (test code = 2666389) Passed POSITIVE CONTROL (test code = 20150907) Passed LYNDSAY (test code = LYNDSAY) [id number] [facility][id number] 18:35:00* Test Item Value Reference Range Interpretation Comme nts T-SPOT.TB (test code = 34290-8) Negative SeeBelow Normal Value: Ne gativeA negative [...] CORRECTED FOR NEG CONTROL (test code = 05159-8) 0 NEGATIVE CONTROL (test code = 94817-5) Passed POSITIVE CONTROL (test code = 20683-8) Passed LYNDSAY (test code = LYNDSAY) [id number] [facility] vyln7878[facility]89-68 13:41:18 Transesophageal Echocardiography Report (CHETAN) Demographics Patient Name YUE LAWS Date of Study 06/16/2023 ESTELLE Gender Female Visit Number [id number] Race Room Number 1055 Number Date of 1970 Referring Physician Age 53 year(s) [employer] Supervisor Interpreting Physician Brian MDProcedure Type of [...] Tricuspid Valve Partially visualized. Pulmonic Valve Not visualized.[facility] riadpe9343-40-48 09:55:41* Test Item Value Reference Range Interpretation Comme nts Result (test code = 6463-4) No MRSA isolated [facility] fccjel7811-22-30 09:55:41* Test Item Value Reference Range Interpretation Comme nts Result (test code = 6463-4) No MRSA isolated [facility] fsqylh7277-66-32 09:55:41* Test Item Value Reference Range Interpretation Comme nts Result (test code = 6463-4) No MRSA isolated [facility] fkqhum9339-21-43 09:55:41* Test Item Value Reference Range Interpretation Comme nts Result (test code = 6463-4) No MRSA isolated [facility] ytilpr5406-31-39 09:55:41* Test Item Value Reference Range Interpretation Comme nts Result (test code = 6463-4) No MRSA isolated [facility] seotou5929-31-64 09:55:41* Test Item Value Reference Range Interpretation Comme nts Result (test code = 6463-4) No MRSA isolated [facility] ignvak4278-99-90 09:55:41* Test Item Value Reference Range Interpretation Comme nts Result (test code = 6463-4) No MRSA isolated [facility] bcypfw9262-49-12 09:55:41* Test Item Value Reference Range Interpretation Comme nts Result (test code = 6463-4) No MRSA isolated [facility] zpczbu1123-80-93 09:55:41* Test Item Value Reference Range Interpretation Comme nts Result (test code = 6463-4) No MRSA isolated [facility] giabqu0766-67-27 09:55:41* Test Item Value Reference Range Interpretation Comme nts Result (test code = 6463-4) No MRSA isolated [facility] efhwod6890-04-85 09:55:41* Test Item Value Reference Range Interpretation Comme nts Result (test code = 6463-4) No MRSA isolated [facility] mulrxr4479-11-99 09:55:41* Test Item Value Reference Range Interpretation Comme nts Result (test code = 6463-4) No MRSA isolated [facility] tzquge2799-56-20 09:55:41* Test Item Value Reference Range Interpretation Comme nts Result (test code = 6463-4) No MRSA isolated [facility] jgrynz0248-40-24 09:55:41* Test Item Value Reference Range Interpretation Comme nts Result (test code = 6463-4) No MRSA isolated [facility] zsrppg3904-28-69 09:55:41* Test Item Value Reference Range Interpretation Comme nts Result (test code = 6463-4) No MRSA isolated [facility] zezvyb9192-64-89 09:55:41* Test Item Value Reference Range Interpretation Comme nts Result (test code = 6463-4) No MRSA isolated [facility] wqkcpl7941-38-61 09:55:41* Test Item Value Reference Range Interpretation Comme nts Result (test code = 6463-4) No MRSA isolated [facility] gfgafl6095-31-05 09:55:41* Test Item Value Reference Range Interpretation Comme nts Result (test code = 6463-4) No MRSA isolated [facility] uuyrhu1663-72-19 09:55:41* Test Item Value Reference Range Interpretation Comme nts Result (test code = 6463-4) No MRSA isolated [facility] mnzyiw8537-82-36 09:55:41* Test Item Value Reference Range Interpretation Comme nts Result (test code = 6463-4) No MRSA isolated [facility] ehbgeo9039-81-96 09:55:41* Test Item Value Reference Range Interpretation Comme nts Result (test code = 6463-4) No MRSA isolated [facility] qnqwkm6884-07-37 09:55:41* Test Item Value Reference Range Interpretation Comme nts Result (test code = 6463-4) No MRSA isolated [facility] kohgxa6438-29-79 09:55:41* Test Item Value Reference Range Interpretation Comme nts Result (test code = 6463-4) No MRSA isolated [facility] bnhvtg6199-53-26 09:55:41* Test Item Value Reference Range Interpretation Comme nts Result (test code = 6463-4) No MRSA isolated [facility] zrchky3124-87-00 09:55:41* Test Item Value Reference Range Interpretation Comme nts Result (test code = 6463-4) No MRSA isolated [facility] vtrghj1783-79-85 09:55:41* Test Item Value Reference Range Interpretation Comme nts Result (test code = 6463-4) No MRSA isolated [facility] pccclm5427-00-07 09:55:41* Test Item Value Reference Range Interpretation Comme nts Result (test code = 6463-4) No MRSA isolated [facility] nqczwn1619-50-02 09:55:41* Test Item Value Reference Range Interpretation Comme nts Result (test code = 6463-4) No MRSA isolated [facility] noqykx4616-44-22 09:55:41* Test Item Value Reference Range Interpretation Comme nts Result (test code = 6463-4) No MRSA isolated [facility] panfwp7365-79-14 09:55:41* Test Item Value Reference Range Interpretation Comme nts Result (test code = 6463-4) No MRSA isolated [facility] qnfoha8675-91-17 09:55:41* Test Item Value Reference Range Interpretation Comme nts Result (test code = 6463-4) No MRSA isolated [facility] mkvohn1791-42-28 09:55:41* Test Item Value Reference Range Interpretation Comme nts Result (test code = 6463-4) No MRSA isolated [facility] rkhecq3870-95-05 09:55:41* Test Item Value Reference Range Interpretation Comme nts Result (test code = 6463-4) No MRSA isolated [facility] enwpfv2546-59-32 09:55:41* Test Item Value Reference Range Interpretation Comme nts Result (test code = 6463-4) No MRSA isolated [facility] cibtln0194-58-61 09:55:41* Test Item Value Reference Range Interpretation Comme nts Result (test code = 6463-4) No MRSA isolated [facility] bvsjxi4716-04-72 09:55:41* Test Item Value Reference Range Interpretation Comme nts Result (test code = 6463-4) No MRSA isolated [facility] mwmayr6897-62-37 09:55:41* Test Item Value Reference Range Interpretation Comme nts Result (test code = 6463-4) No MRSA isolated [facility] nhknnd1610-29-92 09:55:41* Test Item Value Reference Range Interpretation Comme nts Result (test code = 6463-4) No MRSA isolated [facility] ddkilb1578-52-07 09:55:41* Test Item Value Reference Range Interpretation Comme nts Result (test code = 6463-4) No MRSA isolated [facility] fblxxr1125-37-95 09:55:41* Test Item Value Reference Range Interpretation Comme nts Result (test code = 6463-4) No MRSA isolated [facility] ufjyxs0109-69-96 09:55:41* Test Item Value Reference Range Interpretation Comme nts Result (test code = 6463-4) No MRSA isolated [facility] izljia0969-77-23 09:55:41* Test Item Value Reference Range Interpretation Comme nts Result (test code = 6463-4) [facility] cgljxk4935[facility]91-60 09:55:41* Test Item Value Reference Range Interpretation Comme nts Result (test code = 6463-4) No [facility] KOXVEB3445-54-73 09:55:41* Test Item Value Reference Range Interpretation Comme nts CULTURE (BEAKER) (test code = 1095) No MRSA isolated CRYPTOCOCCAL [id number] 15:50:36* Test Item Value Reference Range Interpretation Comme nts CRYPTOCOCCAL ANTIGEN, SERUM (BEAKER) (test code = 1828) Negative Negative, Interference SPUTUM CULTURE + GRAM [id number] 10:30:11* Test Item Value Reference Range Interpretation [...] GRAM STAIN RESULT (BEAKER) (test code = 043656) 10-15 epithelial cells GRAM STAIN RESULT (BEAKER) (test code = 466286) 2+ gram positive cocci in chains and pairs GRAM STAIN RESULT (BEAKER) (test code = 704733) 1+ gram negative rods GRAM STAIN RESULT (BEAKER) (test code = 909635) 1+ yeast 2+ Normal respiratory rebel presentVANCOMYCIN LEVEL, [id number] 06:41:26* Test Item Value Reference Range Interpretation Comme nts VANCOMYCIN TROUGH (BEAKER) ( test code = 522) 17.0 ug/mL 10.0-20.0 [employer] Inspector ID - ADMINECHO W CONTRAST & [id number] 13:44:03Transthoracic Echocardiography Report (TTE) Demographics Patient Name YUE LAWS Date of Study 06/14/2023 ESTELLE Gender Female Visit Number [id number] Race Room Number 1055 Number Date of 1970 Referring Aydee Go MD Physician Age 53 year(s) Greenskeeper Supervisor James Albarran [facility] Interpreting Mauricio Bonilla, Physician MDProcedure Type of [...] Atrium LA size is severely enlarged . R ight Ventricle The right ventricular chamber size and [...] Peak Velocity: 0.85 m/s Peak Gradient: 2.89 mmHgOjai [facility] HospitalHEMOGLOBIN [id number] 09:26:42* Test Item Value Reference Range Interpretation [...] 5.7- 6.4% indicates increased risk for diabetes (prediabetes)."[employer] Hatchery Inspector ID - ADMOperator ID - ADMECG 12 [id number] 09:06:12Ventricular Rate 97 BPMAtrial Rate 97 BPMP-R Interval 146 msQRS Duration 96 msQ-T Interval 378 msQTC Calculation(Bazett) 480 msP Alexander 68 degreesR Alexander 107 degreesT Alexander 18 degrees Suspect arm leadreversal, interpretation assumes no reversalNormal sinus rhythmRightward axisNonspecific T wave abnormalityAbnormal ECGWhen compared with ECG of 30-MAR-2023 13:06,QRS axis Shifted rightConfirmed by Luis Lopez ([id number]) on 06/14/2023 9:06:07 [facility] [id number] 09:06:12Ventricular Rate 97 BPMAtrial Rate 97 BPMP-R Interval 146 msQRS Duration 96 msQ-T Interval 378 msQTC Calculation(Bazett) 480 msP Alexander 68 degreesR Alexander 107 degreesT Alexander 18 degrees Suspect arm leadreversal, interpretation assumes no reversalNormal sinus rhythmRightward axisNonspecific T wave abno rmalityAbnormal ECGWhen compared with ECG of 30-MAR-2023 13:06,QRS axis Shifted rightConfirmed by Luis Lopez ([id number]) on 06/14/2023 9:06:07 [facility]inoBASIC METABOLIC [id number] 04:48:18* Test Item Value Reference Range Interpretation [...] GFR is not applicable for dialysis patients Fish Hatcher[employer] Inspector ID - ADMINCBC (HEMOGRAM ONLY)2023-06-14 04:22:50* Test [...] 413) 0 /100 WBC 0-0 Strep pneumoniae [id number] 23:34:41* Test Item Value Reference Range Interpretation Comme nts Strep pneumoniae Antigen (test code = 16353-1) Presumptive negative for pneumococcal pneumonia - see [...] the test. Lab Interpretation (test code = 16944-5) [facility] [id number] 23:34:41* Test Item Value Reference Range Interpretation Comme nts Strep pneumoniae Antigen (test code = 78092-8) Presumptive negative for pneumococcal pneumonia - see [...] the test. Lab Interpretation (test code = 78633-3) [facility] [id number] 23:34:41* Test Item Value Reference Range Interpretation Comme nts Strep pneumoniae Antigen (test code = 57562-3) Presumptive negative for pneumococcal pneumonia - see [...] the test. Lab Interpretation (test code = 58392-4) [facility] [id number] 23:34:41* Test Item Value Reference Range Interpretation Comme nts Strep pneumoniae Antigen (test code = 08632-0) Presumptive negative for pneumococcal pneumonia - see [...] the test. Lab Interpretation (test code = 55883-5) [facility] [id number] 23:34:41* Test Item Value Reference Range Interpretation Comme nts Strep pneumoniae Antigen (test code = 15564-6) Presumptive negative for pneumococcal pneumonia - see [...] the test. Lab Interpretation (test code = 39969-8) [facility] [id number] 23:34:41* Test Item Value Reference Range Interpretation Comme nts Strep pneumoniae Antigen (test code = 18548-0) Presumptive negative for pneumococcal pneumonia - see [...] the test. Lab Interpretation (test code = 47637-2) [facility] [id number] 23:34:41* Test Item Value Reference Range Interpretation Comme nts Strep pneumoniae Antigen (test code = 37632-1) Presumptive negative for pneumococcal pneumonia - see [...] the test. Lab Interpretation (test code = 43172-1) [facility] [id number] 23:34:41* Test Item Value Reference Range Interpretation Comme nts Strep pneumoniae Antigen (test code = 27694-1) Presumptive negative for pneumococcal pneumonia - see [...] the test. Lab Interpretation (test code = 67799-0) [facility] [id number] 23:34:41* Test Item Value Reference Range Interpretation Comme nts Strep pneumoniae Antigen (test code = 55441-1) Presumptive negative for pneumococcal pneumonia - see [...] the test. Lab Interpretation (test code = 03161-9) [facility] [id number] 23:34:41* Test Item Value Reference Range Interpretation Comme nts Strep pneumoniae Antigen (test code = 24117-6) Presumptive negative for pneumococcal pneumonia - see [...] the test. Lab Interpretation (test code = 55160-4) [facility] [id number] 23:34:41* Test Item Value Reference Range Interpretation Comme nts Strep pneumoniae Antigen (test code = 99906-4) Presumptive negative for pneumococcal pneumonia - see [...] the test. Lab Interpretation (test code = 56864-3) [facility] [id number] 23:34:41* Test Item Value Reference Range Interpretation Comme nts Strep pneumoniae Antigen (test code = 72473-5) Presumptive negative for pneumococcal pneumonia - see [...] the test. Lab Interpretation (test code = 89416-0) [facility] [id number] 23:34:41* Test Item Value Reference Range Interpretation Comme nts Strep pneumoniae Antigen (test code = 10320-9) Presumptive negative for pneumococcal pneumonia - see [...] the test. Lab Interpretation (test code = 15585-0) [facility] [id number] 23:34:41* Test Item Value Reference Range Interpretation Comme nts Strep pneumoniae Antigen (test code = 02408-1) Presumptive negative for pneumococcal pneumonia - see [...] the test. Lab Interpretation (test code = 07129-0) [facility] [id number] 23:34:41* Test Item Value Reference Range Interpretation Comme nts Strep pneumoniae Antigen (test code = 16237-8) Presumptive negative for pneumococcal pneumonia - see [...] the test. Lab Interpretation (test code = 17547-2) [facility] [id number] 23:34:41* Test Item Value Reference Range Interpretation Comme nts Strep pneumoniae Antigen (test code = 87539-4) Presumptive negative for pneumococcal pneumonia - see [...] the test. Lab Interpretation (test code = 68960-5) [facility] [id number] 23:34:41* Test Item Value Reference Range Interpretation Comme nts Strep pneumoniae Antigen (test code = 76014-2) Presumptive negative for pneumococcal pneumonia - see [...] the test. Lab Interpretation (test code = 96296-8) [facility] [id number] 23:34:41* Test Item Value Reference Range Interpretation Comme nts Strep pneumoniae Antigen (test code = 12664-7) Presumptive negative for pneumococcal pneumonia - see [...] the test. Lab Interpretation (test code = 90641-3) [facility] [id number] 23:34:41* Test Item Value Reference Range Interpretation Comme nts Strep pneumoniae Antigen (test code = 91848-2) Presumptive negative for pneumococcal pneumonia - see [...] the test. Lab Interpretation (test code = 80222-2) [facility] [id number] 23:34:41* Test Item Value Reference Range Interpretation Comme nts Strep pneumoniae Antigen (test code = 86480-2) Presumptive negative for pneumococcal pneumonia - see [...] the test. Lab Interpretation (test code = 41296-5) [facility] [id number] 23:34:41* Test Item Value Reference Range Interpretation Comme nts Strep pneumoniae Antigen (test code = 96548-4) Presumptive negative for pneumococcal pneumonia - see [...] the test. Lab Interpretation (test code = 91360-6) [facility] [id number] 23:34:41* Test Item Value Reference Range Interpretation Comme nts Strep pneumoniae Antigen (test code = 40795-9) Presumptive negative for pneumococcal pneumonia - see [...] the test. Lab Interpretation (test code = 21313-4) [facility] [id number] 23:34:41* Test Item Value Reference Range Interpretation Comme nts Strep pneumoniae Antigen (test code = 58362-8) Presumptive negative for pneumococcal pneumonia - see [...] the test. Lab Interpretation (test code = 83644-1) [facility] trwpyji7069-03-06 23:34:41* Test Item Value Reference Range Interpretation Comme nts Strep pneumoniae Antigen (test code = 49311-1) Presumptive negative for pneumococcal pneumonia - see [...] the test. Lab Interpretation (test code = 16829-3) [facility] [id number] 23:34:41* Test Item Value Reference Range Interpretation Comme nts Strep pneumoniae Antigen (test code = 67643-9) Presumptive negative for pneumococcal pneumonia - see [...] the test. Lab Interpretation (test code = 99813-5) [facility] [id number] 23:34:41* Test Item Value Reference Range Interpretation Comme nts Strep pneumoniae Antigen (test code = 83581-3) Presumptive negative for pneumococcal pneumonia - see [...] the test. Lab Interpretation (test code = 77069-5) [facility] [id number] 23:34:41* Test Item Value Reference Range Interpretation Comme nts Strep pneumoniae Antigen (test code = 68599-3) Presumptive negative for pneumococcal pneumonia - see [...] the test. Lab Interpretation (test code = 54287-9) [facility] [id number] 23:34:41* Test Item Value Reference Range Interpretation Comme nts Strep pneumoniae Antigen (test code = 32110-5) Presumptive negative for pneumococcal pneumonia - see [...] the test. Lab Interpretation (test code = 16460-8) [facility] [id number] 23:34:41* Test Item Value Reference Range Interpretation Comme nts Strep pneumoniae Antigen (test code = 93379-7) Presumptive negative for pneumococcal pneumonia - see [...] the test. Lab Interpretation (test code = 76696-8) [facility] mziwycu3707-27-48 23:34:41* Test Item Value Reference Range Interpretation Comme nts Strep pneumoniae Antigen (test code = 30927-8) Presumptive negative for pneumococcal pneumonia - see [...] the test. Lab Interpretation (test code = 08012-1) [facility] [id number] 23:34:41* Test Item Value Reference Range Interpretation Comme nts Strep pneumoniae Antigen (test code = 44667-4) Presumptive negative for pneumococcal pneumonia - see [...] the test. Lab Interpretation (test code = 60006-8) [facility] [id number] 23:34:41* Test Item Value Reference Range Interpretation Comme nts Strep pneumoniae Antigen (test code = 96062-9) Presumptive negative for pneumococcal pneumonia - see [...] the test. Lab Interpretation (test code = 84255-5) [facility] [id number] 23:34:41* Test Item Value Reference Range Interpretation Comme nts Strep pneumoniae Antigen (test code = 61048-3) Presumptive negative for pneumococcal pneumonia - see [...] the test. Lab Interpretation (test code = 35435-9) [facility] [id number] 23:34:41* Test Item Value Reference Range Interpretation Comme nts Strep pneumoniae Antigen (test code = 46579-9) Presumptive negative for pneumococcal pneumonia - see [...] the test. Lab Interpretation (test code = 16696-1) [facility] [id number] 23:34:41* Test Item Value Reference Range Interpretation Comme nts Strep pneumoniae Antigen (test code = 95231-4) Presumptive negative for pneumococcal pneumonia - see [...] the test. Lab Interpretation (test code = 72893-7) [facility] [id number] 23:34:41* Test Item Value Reference Range Interpretation Comme nts Strep pneumoniae Antigen (test code = 88519-5) Presumptive negative for pneumococcal pneumonia - see [...] the test. Lab Interpretation (test code = 87539-5) [facility] [id number] 23:34:41* Test Item Value Reference Range Interpretation Comme nts Strep pneumoniae Antigen (test code = 62766-6) Presumptive negative for pneumococcal pneumonia - see [...] the test. Lab Interpretation (test code = 35877-1) [facility] [id number] 23:34:41* Test Item Value Reference Range Interpretation Comme nts Strep pneumoniae Antigen (test code = 33794-3) Presumptive negative for pneumococcal pneumonia - see [...] the test. Lab Interpretation (test code = 81811-0) [facility] widhtqr6345-37-02 23:34:41* Test Item Value Reference Range Interpretation Comme nts Strep pneumoniae Antigen (test code = 51410-7) Presumptive negative for pneumococcal pneumonia - see [...] the test. Lab Interpretation (test code = 00023-3) [facility] [id number] 23:34:41* Test Item Value Reference Range Interpretation Comme nts Strep pneumoniae Antigen (test code = 09197-6) Presumptive negative for pneumococcal pneumonia - see [...] the test. Lab Interpretation (test code = 89211-8) [facility] [id number] 23:34:41* Test Item Value Reference Range Interpretation Comme nts Strep pneumoniae Antigen (test code = 12718-1) Presumptive negative for pneumococcal pneumonia - see [...] the test. Lab Interpretation (test code = 62976-6) [facility] [id number] 23:34:41* Test Item Value Reference Range Interpretation Comme nts Strep pneumoniae Antigen (test code = 48820-6) Presumptive negative for pneumococcal pneumonia - see [...] the test. Lab Interpretation (test code = 33212-2) [facility] [id number] 23:34:41* Test Item Value Reference Range Interpretation Comme nts Strep pneumoniae Antigen (test code = 33487-1) Presumptive negative for pneumococcal pneumonia - see [...] the test. Lab Interpretation (test code = 16191-0) [facility] CenterTREP PNEUMONIAE [id number] 23:34:41* Test Item Value Reference Range Interpretation [...] detection limit of the test. Legionella antigen, [id number] 23:29:07* Test Item Value Reference Range Interpretation Comme nts Legionella Urine Antigen (test code = 84742-6) Negative - see comment Negative Negative for L. pneumophila serogroup 1 antigen, suggesting no recent or current infection with this serogroup. Legionellosis cannot be ruled out since other serogroups and species may cause disease. Lab Interpretation (test code = 15926-5) [facility] HospitalLeg[facility] antigen, [id number] 23:29:07* Test Item Value Reference Range Interpretation Comme nts Legionella Urine Antigen (test code = 95885-5) Negative - see comment Negative Negative for L. pneumophila serogroup 1 antigen, suggesting no recent or current infection with this serogroup. Legionellosis cannot be ruled out since other serogroups and species may cause disease. Lab Interpretation (test code = 85912-4) [facility] HospitalLegionella antigen, [id number] 23:29:07* Test Item Value Reference Range Interpretation Comme [facility] Legionella Urine Antigen (test code = 64648-7) Negative - see comment Negative Negative for L. pneumophila serogroup 1 antigen, suggesting no recent or current infection with this serogroup. Legionellosis cannot be ruled out since other serogroups and species may cause disease. Lab Interpretation (test code = 61035-6) [facility] HospitalLegionella antigen, [id number] 23:29:07* Test Item Value Reference Range Interpretation Comme nts Legionella Urine Antigen (test code = 89475-5) Negative - see comment Negative Negative for L. pneumophila serogroup 1 antigen, suggesting no recent or current infection with this serogroup. Legionellosis cannot be ruled out since other serogroups and species may cause disease. Lab Interpretation (test code = 19736-2) [facility] HospitalLeg[facility] antigen, [id number] 23:29:07* Test Item Value Reference Range Interpretation Comme nts Legionella Urine Antigen (test code = 12840-1) Negative - see comment Negative Negative for L. pneumophila serogroup 1 antigen, suggesting no recent or current infection with this serogroup. Legionellosis cannot be ruled out since other serogroups and species may cause disease. Lab Interpretation (test code = 64280-6) [facility] antigen, [id number] 23:29:07* Test Item Value Reference Range Interpretation Comme nts Legionella Urine Antigen (test code = 02100-8) Negative - see comment Negative Negative for L. pneumophila serogroup 1 antigen, suggesting no recent or current infection with this serogroup. Legionellosis cannot be ruled out since other serogroups and species may cause disease. Lab Interpretation (test code = 99125-6) [facility], [id number] 23:29:07* Test Item Value Reference Range Interpretation Comme nts Legionella Urine Antigen (test code = 97156-6) Negative - see comment Negative Negative for L. pneumophila serogroup 1 antigen, suggesting no recent or current infection with this serogroup. Legionellosis cannot be ruled out since other serogroups and species may cause disease. Lab Interpretation (test code = 11800-7) [facility] antigen, [id number] 23:29:07* Test Item Value Reference Range Interpretation Comme nts Legionella Urine Antigen (test code = 05992-3) Negative - see comment Negative Negative for L. pneumophila serogroup 1 antigen, suggesting no recent or current infection with this serogroup. Legionellosis cannot be ruled out since other serogroups and species may cause disease. Lab Interpretation (test code = 46677-0) [facility] antigen, [id number] 23:29:07* Test Item Value Reference Range Interpretation Comme nts Legionella Urine Antigen (test code = 56523-5) Negative - see comment Negative Negative for L. pneumophila serogroup 1 antigen, suggesting no recent or current infection with this serogroup. Legionellosis cannot be ruled out since other serogroups and species may cause disease. Lab Interpretation (test code = 59784-5) [facility] antigen, [id number] 23:29:07* Test Item Value Reference Range Interpretation Comme nts Legionella Urine Antigen (test code = 92638-3) Negative - see comment Negative Negative for L. pneumophila serogroup 1 antigen, suggesting no recent or current infection with this serogroup. Legionellosis cannot be ruled out since other serogroups and species may cause disease. Lab Interpretation (test code = 91544-0) [facility] antigen, [id number] 23:29:07* Test Item Value Reference Range Interpretation Comme nts Legionella Urine Antigen (test code = 76224-4) Negative - see comment Negative Negative for L. pneumophila serogroup 1 antigen, suggesting no recent or current infection with this serogroup. Legionellosis cannot be ruled out since other serogroups and species may cause disease. Lab Interpretation (test code = 64913-3) [facility] antigen, [id number] 23:29:07* Test Item Value Reference Range Interpretation Comme nts Legionella Urine Antigen (test code = 94485-2) Negative - see comment Negative Negative for L. pneumophila serogroup 1 antigen, suggesting no recent or current infection with this serogroup. Legionellosis cannot be ruled out since other serogroups and species may cause disease. Lab Interpretation (test code = 75764-9) [facility] antigen, [id number] 23:29:07* Test Item Value Reference Range Interpretation Comme nts Legionella Urine Antigen (test code = 45323-0) Negative - see comment Negative Negative for L. pneumophila serogroup 1 antigen, suggesting no recent or current infection with this serogroup. Legionellosis cannot be ruled out since other serogroups and species may cause disease. Lab Interpretation (test code = 39561-7) [facility] antigen, [id number] 23:29:07* Test Item Value Reference Range Interpretation Comme nts Legionella Urine Antigen (test code = 78851-4) Negative - see comment Negative Negative for L. pneumophila serogroup 1 antigen, suggesting no recent or current infection with this serogroup. Legionellosis cannot be ruled out since other serogroups and species may cause disease. Lab Interpretation (test code = 81362-9) [facility] antigen, [id number] 23:29:07* Test Item Value Reference Range Interpretation Comme nts Legionella Urine Antigen (test code = 70227-1) Negative - see comment Negative Negative for L. pneumophila serogroup 1 antigen, suggesting no recent or current infection with this serogroup. Legionellosis cannot be ruled out since other serogroups and species may cause disease. Lab Interpretation (test code = 36676-1) [facility], [id number] 23:29:07* Test Item Value Reference Range Interpretation Comme nts Legionella Urine Antigen (test code = 59293-0) Negative - see comment Negative Negative for L. pneumophila serogroup 1 antigen, suggesting no recent or current infection with this serogroup. Legionellosis cannot be ruled out since other serogroups and species may cause disease. Lab Interpretation (test code = 69126-9) [facility], [id number] 23:29:07* Test Item Value Reference Range Interpretation Comme nts Legionella Urine Antigen (test code = 48083-7) Negative - see comment Negative Negative for L. pneumophila serogroup 1 antigen, suggesting no recent or current infection with this serogroup. Legionellosis cannot be ruled out since other serogroups and species may cause disease. Lab Interpretation (test code = 17892-9) [facility] antigen, [id number] 23:29:07* Test Item Value Reference Range Interpretation Comme nts Legionella Urine Antigen (test code = 97731-6) Negative - see comment Negative Negative for L. pneumophila serogroup 1 antigen, suggesting no recent or current infection with this serogroup. Legionellosis cannot be ruled out since other serogroups and species may cause disease. Lab Interpretation (test code = 05861-8) [facility], [id number] 23:29:07* Test Item Value Reference Range Interpretation Comme nts Legionella Urine Antigen (test code = 81541-5) Negative - see comment Negative Negative for L. pneumophila serogroup 1 antigen, suggesting no recent or current infection with this serogroup. Legionellosis cannot be ruled out since other serogroups and species may cause disease. Lab Interpretation (test code = 98052-0) [facility], [id number] 23:29:07* Test Item Value Reference Range Interpretation Comme nts Legionella Urine Antigen (test code = 77414-1) Negative - see comment Negative Negative for L. pneumophila serogroup 1 antigen, suggesting no recent or current infection with this serogroup. Legionellosis cannot be ruled out since other serogroups and species may cause disease. Lab Interpretation (test code = 14331-3) [facility], [id number] 23:29:07* Test Item Value Reference Range Interpretation Comme nts Legionella Urine Antigen (test code = 77374-9) Negative - see comment Negative Negative for L. pneumophila serogroup 1 antigen, suggesting no recent or current infection with this serogroup. Legionellosis cannot be ruled out since other serogroups and species may cause disease. Lab Interpretation (test code = 61562-0) [facility], [id number] 23:29:07* Test Item Value Reference Range Interpretation Comme nts Legionella Urine Antigen (test code = 68040-4) Negative - see comment Negative Negative for L. pneumophila serogroup 1 antigen, suggesting no recent or current infection with this serogroup. Legionellosis cannot be ruled out since other serogroups and species may cause disease. Lab Interpretation (test code = 11494-4) [facility], [id number] 23:29:07* Test Item Value Reference Range Interpretation Comme nts Legionella Urine Antigen (test code = 75144-5) Negative - see comment Negative Negative for L. pneumophila serogroup 1 antigen, suggesting no recent or current infection with this serogroup. Legionellosis cannot be ruled out since other serogroups and species may cause disease. Lab Interpretation (test code = 01028-2) [facility], [id number] 23:29:07* Test Item Value Reference Range Interpretation Comme nts Legionella Urine Antigen (test code = 35348-5) Negative - see comment Negative Negative for L. pneumophila serogroup 1 antigen, suggesting no recent or current infection with this serogroup. Legionellosis cannot be ruled out since other serogroups and species may cause disease. Lab Interpretation (test code = 90963-3) [facility], [id number] 23:29:07* Test Item Value Reference Range Interpretation Comme nts Legionella Urine Antigen (test code = 66517-2) Negative - see comment Negative Negative for L. pneumophila serogroup 1 antigen, suggesting no recent or current infection with this serogroup. Legionellosis cannot be ruled out since other serogroups and species may cause disease. Lab Interpretation (test code = 18377-9) [facility], [id number] 23:29:07* Test Item Value Reference Range Interpretation Comme nts Legionella Urine Antigen (test code = 20891-6) Negative - see comment Negative Negative for L. pneumophila serogroup 1 antigen, suggesting no recent or current infection with this serogroup. Legionellosis cannot be ruled out since other serogroups and species may cause disease. Lab Interpretation (test code = 35432-5) [facility], [id number] 23:29:07* Test Item Value Reference Range Interpretation Comme nts Legionella Urine Antigen (test code = 42683-6) Negative - see comment Negative Negative for L. pneumophila serogroup 1 antigen, suggesting no recent or current infection with this serogroup. Legionellosis cannot be ruled out since other serogroups and species may cause disease. Lab Interpretation (test code = 86145-5) [facility], [id number] 23:29:07* Test Item Value Reference Range Interpretation Comme nts Legionella Urine Antigen (test code = 04929-9) Negative - see comment Negative Negative for L. pneumophila serogroup 1 antigen, suggesting no recent or current infection with this serogroup. Legionellosis cannot be ruled out since other serogroups and species may cause disease. Lab Interpretation (test code = 20382-1) [facility], [id number] 23:29:07* Test Item Value Reference Range Interpretation Comme nts Legionella Urine Antigen (test code = 37405-6) Negative - see comment Negative Negative for L. pneumophila serogroup 1 antigen, suggesting no recent or current infection with this serogroup. Legionellosis cannot be ruled out since other serogroups and species may cause disease. Lab Interpretation (test code = 79512-5) [facility], [id number] 23:29:07* Test Item Value Reference Range Interpretation Comme nts Legionella Urine Antigen (test code = 45967-6) Negative - see comment Negative Negative for L. pneumophila serogroup 1 antigen, suggesting no recent or current infection with this serogroup. Legionellosis cannot be ruled out since other serogroups and species may cause disease. Lab Interpretation (test code = 63603-2) [facility], [id number] 23:29:07* Test Item Value Reference Range Interpretation Comme nts Legionella Urine Antigen (test code = 84749-4) Negative - see comment Negative Negative for L. pneumophila serogroup 1 antigen, suggesting no recent or current infection with this serogroup. Legionellosis cannot be ruled out since other serogroups and species may cause disease. Lab Interpretation (test code = 29085-2) [facility], [id number] 23:29:07* Test Item Value Reference Range Interpretation Comme nts Legionella Urine Antigen (test code = 74905-0) Negative - see comment Negative Negative for L. pneumophila serogroup 1 antigen, suggesting no recent or current infection with this serogroup. Legionellosis cannot be ruled out since other serogroups and species may cause disease. Lab Interpretation (test code = 95387-9) [facility], [id number] 23:29:07* Test Item Value Reference Range Interpretation Comme nts Legionella Urine Antigen (test code = 23353-0) Negative - see comment Negative Negative for L. pneumophila serogroup 1 antigen, suggesting no recent or current infection with this serogroup. Legionellosis cannot be ruled out since other serogroups and species may cause disease. Lab Interpretation (test code = 24240-5) [facility], [id number] 23:29:07* Test Item Value Reference Range Interpretation Comme nts Legionella Urine Antigen (test code = 26851-6) Negative - see comment Negative Negative for L. pneumophila serogroup 1 antigen, suggesting no recent or current infection with this serogroup. Legionellosis cannot be ruled out since other serogroups and species may cause disease. Lab Interpretation (test code = 99900-8) [facility], [id number] 23:29:07* Test Item Value Reference Range Interpretation Comme nts Legionella Urine Antigen (test code = 62718-0) Negative - see comment Negative Negative for L. pneumophila serogroup 1 antigen, suggesting no recent or current infection with this serogroup. Legionellosis cannot be ruled out since other serogroups and species may cause disease. Lab Interpretation (test code = 36432-7) [facility], [id number] 23:29:07* Test Item Value Reference Range Interpretation Comme nts Legionella Urine Antigen (test code = 70609-2) Negative - see comment Negative Negative for L. pneumophila serogroup 1 antigen, suggesting no recent or current infection with this serogroup. Legionellosis cannot be ruled out since other serogroups and species may cause disease. Lab Interpretation (test code = 81001-2) [facility], [id number] 23:29:07* Test Item Value Reference Range Interpretation Comme nts Legionella Urine Antigen (test code = 61455-3) Negative - see comment Negative Negative for L. pneumophila serogroup 1 antigen, suggesting no recent or current infection with this serogroup. Legionellosis cannot be ruled out since other serogroups and species may cause disease. Lab Interpretation (test code = 32067-2) [facility], [id number] 23:29:07* Test Item Value Reference Range Interpretation Comme nts Legionella Urine Antigen (test code = 69231-2) Negative - see comment Negative Negative for L. pneumophila serogroup 1 antigen, suggesting no recent or current infection with this serogroup. Legionellosis cannot be ruled out since other serogroups and species may cause disease. Lab Interpretation (test code = 92638-6) [facility], [id number] 23:29:07* Test Item Value Reference Range Interpretation Comme nts Legionella Urine Antigen (test code = 91594-6) Negative - see comment Negative Negative for L. pneumophila serogroup 1 antigen, suggesting no recent or current infection with this serogroup. Legionellosis cannot be ruled out since other serogroups and species may cause disease. Lab Interpretation (test code = 37267-4) [facility], [id number] 23:29:07* Test Item Value Reference Range Interpretation Comme nts Legionella Urine Antigen (test code = 69807-7) Negative - see comment Negative Negative for L. pneumophila serogroup 1 antigen, suggesting no recent or current infection with this serogroup. Legionellosis cannot be ruled out since other serogroups and species may cause disease. Lab Interpretation (test code = 11191-4) [facility], [id number] 23:29:07* Test Item Value Reference Range Interpretation Comme nts Legionella Urine Antigen (test code = 75642-1) Negative - see comment Negative Negative for L. pneumophila serogroup 1 antigen, suggesting no recent or current infection with this serogroup. Legionellosis cannot be ruled out since other serogroups and species may cause disease. Lab Interpretation (test code = 32263-7) [facility], [id number] 23:29:07* Test Item Value Reference Range Interpretation Comme nts Legionella Urine Antigen (test code = 86976-9) Negative - see comment Negative Negative for L. pneumophila serogroup 1 antigen, suggesting no recent or current infection with this serogroup. Legionellosis cannot be ruled out since other serogroups and species may cause disease. Lab Interpretation (test code = 76611-2) [facility], [id number] 23:29:07* Test Item Value Reference Range Interpretation Comme nts Legionella Urine Antigen (test code = 94928-3) Negative - see comment Negative Negative for L. pneumophila serogroup 1 antigen, suggesting no recent or current infection with this serogroup. Legionellosis cannot be ruled out since other serogroups and species may cause disease. Lab Interpretation (test code = 11350-7) [facility]LL[facility]TIGEN, [id number] 23:29:07* Test Item Value Reference Range Interpretation Comme nts L. PNEUMOPHILA SEROGP 1 UR AG (BEAKER) (test code = 1156) Negative - see comment Negative Negative for L. pneumophila serogroup 1 antigen, suggesting no recent or current infection with this serogroup. Legionellosis cannot be ruled out since other serogroups and species may cause disease. Venous doppler arm, [id number] 20:05:32[facility] - Upper Extremities Veins Demographics Patient Name YUE LAWS Date of Study 06/13/2023 ESTELLE Age 53 Visit Number [id number] Gender Female Accession Number [id number] Date of 1970 Referring Cara Burgess Room Number 1055 Physician Greenskeeper Supervisor Lisa Ruiz Interpreting John Solorio, Physician [...] cm/s ; [facility] ANTIGEN WITH HIV-1/2 [id number] 18:36:40* Test Item Value Reference Range Interpretation Comme nts HIV-1 ANTIGEN WITH HIV 1\\T\\2 ANTIBODY (2) (LATOYA) (test code = 2586) Nonreactive Nonreactive MR lumbar spine without & with IV [id number] 14:53:29MR LUMBAR SPINE WITH & WITHOUT IV [...] x 1.7x 1.7 cm. Dorsal paraspinal musculature [id number]. Postcontrast imaging demonstrates mild peripheralenhancement of the dorsal paraspinal fluid collection. Left adrenalgland 2.9 cm nodule.[facility] WITH & WITHOUT IV [id number] 14:53:29[facility] 1970 Sex: FMR [...] 1.7 x 1.7 cm. Dorsal paraspinal musculature D4vhvnwecjnmycax. Postcontrast imaging demonstrates mild peripheralenhancement of the [...] Signed By: Ryan Buckley06/13/2023 14:55 CDTWorkstation Name: [id number] KINASE (CK)2023-06-13 11:54:02* Test Item Value Reference Range Interpretation Comme nts CREATINE KINASE TOTAL (BEAKE R) (test code = 380) 43 U/L 29-200 [employer] Inspector ID - ADMINCOMPREHENSIVE METABOLIC [id number] 06:48:22* Test Item Value Reference Range Interpretation [...] GFR is not applicable for dialysis patients [employer] Inspector ID - ADMINPROTHROMBIN TIME/QYC2433-23-22 06:40:01* Test Item Value Reference Range Interpretation [...] code = 2801) 1.70 % 0.00-1.00 H [id number] 05:26:09* Test Item Value Reference Range Interpretation Comme nts MAGNESIUM (BEAKER) (test cod e = 627) 2.0 mg/dL 1.6-2.6 [employer] Hat[employer] Inspector ID - [id number] 05:26:09* Test Item Value Reference Range Interpretation Comme nts PHOSPHORUS (BEAKER) (test co de = 604) 3.5 mg/dL 2.3-4.7 [employer] Hat[employer] Inspector ID - ADMINBASIC METABOLIC [id number] 05:26:08* Test Item Value Reference Range Interpretation [...] GFR is not applicable for dialysis patients [employer] Inspector ID - ADMINCBC W/PLT COUNT & AUTO [id number] 05:11:15* Test Item Value Reference Range Interpretation [...] 0.70 % 0.00-1.00 XR spine lumbar 1 [id number] 10:32:20XR SPINE LUMBAR 1 VIEW CLINICAL INDICATION: L3-4 LAMINECTOMY COMPARISON: NoneO[facility] HospitalXR SPINE LUMBAR 1 [id number] 10:32:20 [facility] 1970 Sex: FXR SPINE LUMBAR 1 VIEWCLINICAL INDICATION: L3-4 LAMINECTOMYCOMPARISON: NoneIMPRESSION:A single lateral view of the lumbar spine is obtained intraoperatively.The posterior approach surgical instrument is seen at the L3-L4 level,inferior to the L3 spinous process. Results were communicated to , who concurred with the above findings. Electronically Signed By: Maxim Ramos08/01/2022 10:34 CDTWo rkstation Name: [id number] SPINE LUMBAR 1 [id number] 10:29:18 [facility] ESTELLE : 1970 Sex: FCLINICAL HISTORY: L3-4 LAMINECTOMYTECHNIQUE: [...] Signed By: Maxim Ramos08/01/2022 10:31 CDTWorkstation Name: [id number] Screen, [id number] 05:32:52* Test Item Value Reference Range Interpretation Comme nts Preg Test, Ur (test code = 2111-1) Negative Negative Lab Interpretation (test cod e = 81751-6) Normal [facility] HospitalPregnancy Screen, [id number] 05:32:52* Test Item Value Reference Range Interpretation Comme nts Preg Test, Ur (test code = 2111-) Negative Negative Lab Interpretation (test cod e = 28934-6) Normal [facility]Pregnancy Screen, [id number] 05:32:52* Test Item Value Reference Range Interpretation Comme nts Preg Test, Ur (test code = 2111-) Negative Negative Lab Interpretation (test cod e = 64001-1) Normal [facility]Pregnancy Screen, [id number] 05:32:52* Test Item Value Reference Range Interpretation Comme nts Preg Test, Ur (test code = 2111-1) Negative Negative Lab Interpretation (test cod e = 11432-7) Normal [facility]Pregnancy Screen, [id number] 05:32:52* Test Item Value Reference Range Interpretation Comme nts Preg Test, Ur (test code = 2111-1) Negative Negative Lab Interpretation (test cod e = 38137-0) Normal [facility]Pregnancy Screen, [id number] 05:32:52* Test Item Value Reference Range Interpretation Comme nts Preg Test, Ur (test code = 2-1) Negative Negative Lab Interpretation (test cod e = 40733-1) Normal [facility], [id number] 05:32:52* Test Item Value Reference Range Interpretation Comme nts Preg Test, Ur (test code = 2111-1) Negative Negative Lab Interpretation (test cod e = 80626-3) Normal [facility]Pregnancy Screen, [id number] 05:32:52* Test Item Value Reference Range Interpretation Comme nts Preg Test, Ur (test code = 2-1) Negative Negative Lab Interpretation (test cod e = 20865-8) Normal [facility]Pregnancy Screen, [id number] 05:32:52* Test Item Value Reference Range Interpretation Comme nts Preg Test, Ur (test code = 2111-1) Negative Negative Lab Interpretation (test cod e = 98113-2) Normal [facility]Pregnancy Screen, [id number] 05:32:52* Test Item Value Reference Range Interpretation Comme nts Preg Test, Ur (test code = 2111-) Negative Negative Lab Interpretation (test cod e = 86281-8) [facility], [id number] 05:32:52* Test Item Value Reference Range Interpretation Comme nts Preg Test, Ur (test code = 2111-) Negative Negative Lab Interpretation (test cod e = 71983-1) Normal [facility], [id number] 05:32:52* Test Item Value Reference Range Interpretation Comme nts Preg Test, Ur (test code = 2111-1) Negative Negative Lab Interpretation (test cod e = 34404-5) [facility], [id number] 05:32:52* Test Item Value Reference Range Interpretation Comme nts Preg Test, Ur (test code = 2111-1) Negative Negative Lab Interpretation (test cod e = 05689-4) [facility], [id number] 05:32:52* Test Item Value Reference Range Interpretation Comme nts Preg Test, Ur (test code = 2111-1) Negative Negative Lab Interpretation (test cod e = 95851-0) [facility], [id number] 05:32:52* Test Item Value Reference Range Interpretation Comme nts Preg Test, Ur (test code = 2111-1) Negative Negative Lab Interpretation (test cod e = 95015-1) [facility], [id number] 05:32:52* Test Item Value Reference Range Interpretation Comme nts Preg Test, Ur (test code = 2111-1) Negative Negative Lab Interpretation (test cod e = 19836-1) Normal [facility], [id number] 05:32:52* Test Item Value Reference Range Interpretation Comme nts Preg Test, Ur (test code = 2111-) Negative Negative Lab Interpretation (test cod e = 47084-8) [facility], [id number] 05:32:52* Test Item Value Reference Range Interpretation Comme nts Preg Test, Ur (test code = 2111-) Negative Negative Lab Interpretation (test cod e = 34045-8) [facility], [id number] 05:32:52* Test Item Value Reference Range Interpretation Comme nts Preg Test, Ur (test code = 2111-) Negative Negative Lab Interpretation (test cod e = 35852-7) [facility], [id number] 05:32:52* Test Item Value Reference Range Interpretation Comme nts Preg Test, Ur (test code = 2111-) Negative Negative Lab Interpretation (test cod e = 72813-2) [facility], [id number] 05:32:52* Test Item Value Reference Range Interpretation Comme nts Preg Test, Ur (test code = 2111-) Negative Negative Lab Interpretation (test cod e = 57261-9) [facility], [id number] 05:32:52* Test Item Value Reference Range Interpretation Comme nts Preg Test, Ur (test code = 2111-1) Negative Negative Lab Interpretation (test cod e = 34091-7) [facility], [id number] 05:32:52* Test Item Value Reference Range Interpretation Comme nts Preg Test, Ur (test code = 2111-1) Negative Negative Lab Interpretation (test cod e = 55761-8) [facility], [id number] 05:32:52* Test Item Value Reference Range Interpretation Comme nts Preg Test, Ur (test code = 2-1) Negative Negative Lab Interpretation (test cod e = 03432-9) [facility], [id number] 05:32:52* Test Item Value Reference Range Interpretation Comme nts Preg Test, Ur (test code = 2-) Negative Negative Lab Interpretation (test cod e = 81872-7) Normal [facility], [id number] 05:32:52* Test Item Value Reference Range Interpretation Comme nts Preg Test, Ur (test code = 2111-) Negative Negative Lab Interpretation (test cod e = 44670-9) [facility], [id number] 05:32:52* Test Item Value Reference Range Interpretation Comme nts Preg Test, Ur (test code = 2111-) Negative Negative Lab Interpretation (test cod e = 71324-9) [facility], [id number] 05:32:52* Test Item Value Reference Range Interpretation Comme nts Preg Test, Ur (test code = 2111-) Negative Negative Lab Interpretation (test cod e = 91433-3) [facility], [id number] 05:32:52* Test Item Value Reference Range Interpretation Comme nts Preg Test, Ur (test code = 2111-) Negative Negative Lab Interpretation (test cod e = 67950-5) [facility], [id number] 05:32:52* Test Item Value Reference Range Interpretation Comme nts Preg Test, Ur (test code = 2111-) Negative Negative Lab Interpretation (test cod e = 54399-6) [facility], [id number] 05:32:52* Test Item Value Reference Range Interpretation Comme nts Preg Test, Ur (test code = 2111-) Negative Negative Lab Interpretation (test cod e = 22542-0) [facility], [id number] 05:32:52* Test Item Value Reference Range Interpretation Comme nts Preg Test, Ur (test code = 2111-1) Negative Negative Lab Interpretation (test cod e = 64846-4) [facility], [id number] 05:32:52* Test Item Value Reference Range Interpretation Comme nts Preg Test, Ur (test code = 2111-) Negative Negative Lab Interpretation (test cod e = 65403-6) Normal [facility], [id number] 05:32:52* Test Item Value Reference Range Interpretation Comme nts Preg Test, Ur (test code = 2111-) Negative Negative Lab Interpretation (test cod e = 92951-6) [facility], [id number] 05:32:52* Test Item Value Reference Range Interpretation Comme nts Preg Test, Ur (test code = 2111-) Negative Negative Lab Interpretation (test cod e = 87387-0) [facility], [id number] 05:32:52* Test Item Value Reference Range Interpretation Comme nts Preg Test, Ur (test code = 2111-) Negative Negative Lab Interpretation (test cod e = 07123-4) [facility], [id number] 05:32:52* Test Item Value Reference Range Interpretation Comme nts Preg Test, Ur (test code = 2111-) Negative Negative Lab Interpretation (test cod e = 67820-1) [facility], [id number] 05:32:52* Test Item Value Reference Range Interpretation Comme nts Preg Test, Ur (test code = 2111-) Negative Negative Lab Interpretation (test cod e = 84809-1) Normal [facility], [id number] 05:32:52* Test Item Value Reference Range Interpretation Comme nts Preg Test, Ur (test code = 2111-) Negative Negative Lab Interpretation (test cod e = 04643-4) Normal [facility], ldecy1845-18-26 05:32:52* Test Item Value Reference Range Interpretation Comme nts Preg Test, Ur (test code = 2-1) Negative Negative Lab Interpretation (test cod e = 20919-3) Normal [facility], [id number] 05:32:52* Test Item Value Reference Range Interpretation Comme nts Preg Test, Ur (test code = 2-1) Negative Negative Lab Interpretation (test cod e = 81954-4) Normal [facility], ugsbz3266-32-38 05:32:52* Test Item Value Reference Range Interpretation Comme nts Preg Test, Ur (test code = 2111-) Negative Negative Lab Interpretation (test cod e = 68899-4) Normal [facility], [id number] 05:32:52* Test Item Value Reference Range Interpretation Comme nts Preg Test, Ur (test code = 2111-) Negative Negative Lab Interpretation (test cod e = 02377-5) Normal [facility], yhtnl2766-79-75 05:32:52* Test Item Value Reference Range Interpretation Comme nts Preg Test, Ur (test code = 2111-) Negative Negative Lab Interpretation (test cod e = 22847-5) Normal [facility], jlofl4406-22-43 05:32:52* Test Item Value Reference Range Interpretation Comme nts Preg Test, Ur (test code = 2111-) Negative Negative Lab Interpretation (test cod e = 94739-0) Normal [facility], sbdnm3395-79-47 05:32:52* Test Item Value Reference Range Interpretation Comme nts Preg Test, Ur (test code = 2111-) Negative Negative Lab Interpretation (test cod e = 92143-4) Normal [facility]Y SCREEN, [id number] 05:32:52* Test Item Value Reference Range Interpretation Comme nts TEST URINE (BEAKER ) (test code = 583) Negative Negative BASIC METABOLIC [id number] 23:30:54* Test Item Value Reference Range Interpretation [...] GFR is not applicable for dialysis patients Fish Hatchery Inspector ID - ADMINPT/[id number] 23:15:33* Test Item Value Reference Range Interpretation [...] H CT neck soft tissue without IV zmqukyau4200-39-71 13:45:22EXAM: CT NECK SOFT TISSUE WITHOUT IV [...] Postoperative changes from anterior cervical discectomy fusionat C3-X7Dnbxddcu Lung Apices: NormalCHI Tri-City Medical CenterCT NECK SOFT TISSUE WITHOUT IV [id number] 13:45:22 [facility] 1970 Sex: FEXAM: [...] Postoperative changes from anterior cervical discectomy fusionat C3-X3Lhugfrzf Lung Apices: NormalIMPRESSION:Exam limited by lack of intravenous contrast.1. 1.8 x 2.9 x 1.3 cm ill-defined fluid collection in the leftanterolateral neck soft tissues, suggesting evolving postoperativehemorrhage. Superimposed infection is not ex cluded.2. Retropharyngeal fluid and air measuring up to 0.8 cm in thickness,favored to be present postoperative right frontal edema. Superimposedinfection is not excluded.3. Postoperative changes from ACDF at C3- J5Jccinkcxxpzrgh Signed By: Maxim Ramos07/31/2022 13:47 CDTWorkstation Name: [id number] METABOLIC [id number] 08:13:13* Test Item Value Reference Range Interpretation [...] GFR is not applicable for dialysis patients Fish Hatchery Inspector ID - BVCBC W/PLT COUNT & AUTO [id number] 07:46:31* Test Item Value Reference Range Interpretation [...] 0.00-1.00 XR spine cervical 2 or 3 [id number] 20:24:23TECHNIQUE: Frontal and lateral views of the cervical spine. INDICATION: Postop Standing Films. COMPARISON: None.[facility]XR SPINE CERVICAL 2 OR 3 [id number] 20:24:23[facility] 1970 Sex: FTECHNIQUE: [...] Signed By: Zachariah Garcia05/28/2023 20:26 CDTWorkstation Name: [id number] fluoro non-specific up to 1 hour 2023-05-28 11:45:16This is a non-reportable study with no Radiologist dictation. Please refer to your PACS to review images, or Doc Flowsheets for documentation on studies without images.[facility] HospitalFL FLUORO NON-SPECIFIC UP TO 1 [id number] 11:45:16 [facility] 1970 Sex: FThis is a non- reportable study with no Radiologist dictation. Please refer to your PACS to review images, or Doc Flowsheets for documentation on studies without images.FL FLUORO NON-SPECIFIC UP TO 1 [id number] 10:13:02 [facility] 1970 Sex: FTECHNIQUE: 1 lateral fluoroscopic image of the cervical spine forlocalization.Fluoroscopic time: 3second(s).FINDINGS:The surgical pointer is at C3-C4.The findings were discussed with Dr. Garcia in theOR who concurred withthe findings.IMPRESSION:Intraoperative localization plain film as described abo ve.Electronically Signed By: Derik Reyez05/28/2023 10:15 CDTWorkstation Name: [id number], QUANTITATIVE, ESMOKKATZ0892-14-05 08:21:03* Test Item Value Reference Range Interpretation Comme nts GONADOTROPIN, CHORIONIC (HCG ) QUANT (BEAKER) (test code = 649) < mIU/mL 0-10 Non- Females: <10 mIU/mL Females: Gestation Age Reference Range(mIU/mL) 0.2-1 Week 5-50 1-2 Weeks 50-500 2-3 Weeks 100-5,000 3-4 Weeks 500-10,000 4-5 Weeks 1,000-50,000 5-6 Weeks 10,000-100,000 6-8 Weeks 15,000- 200,000 2-3 Months 10,000-100,000 Fish Hatchery Inspector ID - ADMINCULTURE, [id number] 09:28:30SPECIMEN NUMBER: [id number] CULTURE, URINE SPECIMEN NUMBER: [id number] SPECIMEN COMMENT: URINE SOURCE: URINE REPORT STATUS: FINAL FINAL REPORT: 05/15/2023 >100,000 CFU/ML UROGENITAL REBEL PRESENT NO COMMON PATHOGENS UNLESS OTHERWISE INDICATED, ALL TESTING PERFORMED AT [facility] [address] [place] [address] DANDY OPERATOR: JANNY STEINER M.D. CLIA NUMBER [id number] [place]. [id number], [id number] 12:02:50SPECIMEN NUMBER: [id number] CULTURE, URINE SPECIMEN NUMBER: [id number] SOURCE: URINE REPORT STATUS: FINAL FINAL REPORT: 05/13/2023 NO SPECIMEN RECEIVED FOR TESTING. CHARGES DELETED.BASIC METABOLIC [id number] 04:48:43* Test Item Value Reference Range Interpretation Comme nts GLUCOSE (test code = 2217) 117 MG/DL 70-99 H BUN (test code = 2208) 20 MG/DL 6-20 CREATININE (test code = 2214) 0.83 MG/DL 0.60-1.30 eGFR (2020 CKD-EPI) (test co de = 01837) 85 ML/MIN/1.73 >60 SODIUM (test code = [...] 12.7 SECONDS 12.5-14.7 INR (test code = 27366) 0.9 SEE BELOW CURRENT RECOMMENDATIONS ARE FOR AN INR OF 2.0-3.0 FOR ALL PATIENTS ON VITAMIN K ANTAGONISTS, EXCEPT THOSE WITH PROSTHETIC HEART VALVES, FOR WHOM INR OF 2.5-3.5 IS RECOMMENDED. UNLESS OTHERWISE INDICATED, ALL TESTING PERFORMED AT [facility] [address] [place] [address] DANDY OPERATOR: JANNY STEINER M.D. CLIA NUMBER [id number] [place]. [id number] CBC W/AUTO DIFF WITH [id number] 01:54:17* Test Item Value Reference Range Interpretation [...] = 1065) 0.0 /100 WBC'S See_Comment [Automated BONDS.COMa ge] The system which generated this result [...] H ABS NUCLEATED RBCS (test code = 62320) 0.00 K/UL 0.00-0.11 ECG 12 [id number] 14:02:48Ventricular Rate 102 BPMAtrial Rate 102 BPMP-R Interval 146 msQRS Duration 90 msQ-T Interval 372 msQTC Calculation(Bazett) 484 msP Alexander 11 degreesR Alexander -53 degreesT Alexander 29 degrees Sinus tachycardiaPossible Left atrial enlargementLeft axis deviationPoor R wave progression Cannot rule out Anterior infarct , age undetermined vs lead misplacementNonspecific T wave abnormalityProlonged QTAbnormal ECGNo previous ECGs availableConfirmed by David GARCIA BASANT ([id number]) on 04/06/2023 2:02:46 [facility] CenterE[facility] CONTRAST & [id number] 13:11:39Transthoracic Echocardiography Report (TTE) Demographics Patient Name YUE LAWS Date of Study 03/31/2023 ESTELLE Gender Female Visit Number [id number] Race Room Number 2227 Number Date of 1970 Referring Physician Mariah Aldridge MD Age 53year(s) Greenskeeper Supervisor Wilmer Francois Vacation Guide Josefina Corbett, [facility] Interpreting Physician Melody MDProcedure Type of Study [...] Peak Velocity: 0.74 m/s Peak Gradient: 2.22 mmHgOjai Valley Community HospitalXR chest 1 view portable / [id number] 15:39:07TECHNIQUE: Frontal view of the chest. INDICATION: CHf. COMPARISON: None. FINDINGS: LINES/TUBES: None. HEART AND MEDIASTINUM: Cardiomediastinal contour is within normallimits. LUNGS: The lungs are well inflated and clear. No consolidation orpulmonary edema. PLEURA: No pneumothorax. No significant pleural effusion. SOFT TISSUES AND BONES: Cervical spinal fixation hardware is noted.[facility] HospitalXR CHEST 1 VIEW PORTABLE / [id number] 15:39:07 [facility] 1970 Sex: FTECHNIQUE: Frontal view of the chest.INDICATION: CHf.COMPARISON: None.FINDINGS:LINES/TUBES: None.HE ART AND MEDIASTINUM: Cardiomediastinal contour is within normallimits. LUNGS: The lungs are well inflated and clear. No consolidation orpulmonary edema.PLEURA: No pneumothorax. No significant pleuraleffusion.SOFT TISSUES AND BONES: Cervical spinal fixation hardware is noted.IMPRESSION:No acute card iopulmonary process.Electronically Signed By: Jose Carlos Lebron04/01/2023 15:41 CDTWorkstation Name: [id number] NATRIURETIC FACTOR (BNP)2023-04-01 14:15:07* Test Item Value Reference Range Interpretation Comme nts B-TYPE NATRIURETIC PEPTIDE ( BEAKER) (test code = 700) 192 pg/mL 0-100 H Fish Hatchery Inspector ID - ADMINMR spine cervical without IV qrerzgyk3904-25-04 11:30:35MRI cervical spine without contrast CLINICAL HISTORY: [...] and paraspinal soft tissues are within normal limits.[facility] HospitalMR CERVICAL SPINE WITHOUT IV [id number] 11:30:35 [facility] 1970 Sex: FMRI [...] Signed By: Maxim Sultana03/31/2023 11:32 CDTWorkstation Name: [id number] METABOLIC CSADS2531-25-56 04:43:14* Test Item Value Reference Range Interpretation [...] GFR is not applicable for dialysis patients Fish Hatchery Inspector GEOVANNA CORREA [facility] (HEMOGRAM ONLY)2023-03-31 04:20:07* Test Item Value Reference [...] 0 /100 WBC 0-0 Arterial doppler legs gcvkzoemj0064-66-03 17:44:07PV LAB - Lower Extremity Arterial Duplex Demographics Patient Name YUE LAWS Date of Study ESTELLE Age 53 Visit Number [id number] Gender Female Accession Number [id number] Date of 1970 Referring Mariah Jasen, Room Number 2227 Physician Greenskeeper Supervisor Yovana Akins Interpreting John Solorio Physician FellowProcedureType of Study: [...] + + + + + + !Prox 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 ! !32 ! !Biphasic ! !60.9 ! !Triphasic ! +-- + + + + + + + + + !Mid 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 ! !25.9 ! !Biphasic ! !59.7 ! !Triphasic ! + + + + + + + + + + !Dist 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 ! !33.2 ! !Biphasic ! !37.4 ! [...] + + + + + + +[facility] CenterABI's Only(Ankle/Brachial Index)2023-03-30 17:13:47PV LAB - Lower Extremity Arterial Procedure Demographics Patient Name YUE LAWS Date of Study 03/30/2023 ESTELLE Age 53 Visit Number [id number] Gender Female Accession Number [id number] Date of 1970 Referring Mariah Aldridge, Room Number 2227 Physician Greenskeeper Supervisor Yovana Akins Interpreting John Solorio, Physician [...] in cm/s ; Diameters are measured in [facility] thoracic spine without IV cuccynrs1295-96-86 12:50:50MR THORACIC SPINE WITHOUT IV CONTRAST INDICATION: [...] abnormality. T10-11 moderate right neural foraminal stenosis raaH99-36 moderate bilateral foraminal stenosis due to facet hypertrophyand ligamentum flavum redundancy. Thoracic vertebrae maintain normal height. Mild multilevel degenerativedisc changes. No evidence of acute osseous fracture or traumaticmalalignment. No paraspinal mass. Conus medullaris terminates at L1. Redundant cauda equina partiallyimaged and further reported on MRI lumbar spine.[facility] HospitalMR THORACIC SPINE WITHOUT IV [id number] 12:50:50 [facility] 1970 Sex: FMR [...] abnormality. T10-11 moderate right neural foraminal stenosis fcpT38-99 moderate bilateral foraminal stenosis due to facet [...] Signed By: Ryan Buckley03/30/2023 12:52 CDTWorkstation Name: [id number] spine lumbar without IV dsqnkbne9750-48-13 12:33:57MR LUMBAR SPINE WITHOUT IV CONTRAST INDICATION: Unlisted Reason for ExamConcern for cord compression COMPARISON: None TECHNIQUE: Multiplanar, multisequence MR images of the lumbar spinewithout contrast. FINDINGS: For the purposes of this dictation, the 5 lowermost twghqo-wzcbwbsocrjvt-kxgb vertebral bodies are labeled L1-L5.Alignment of the [...] with mild to moderatebilateral neural foraminal stenosisCHI Tri-City Medical CenterMR LUMBAR SPINE WITHOUT IV XCXZPLVS1910-01-10 12:33:57 [facility] : 1970 Sex: FMR LUMBAR SPINE WITHOUT IV CONTRASTINDICATION: Unlisted Reason for ExamConcern for cord compressionCOMPARISON: NoneTECHNIQUE: Multiplanar, multisequence MR images of the lumbar spinewithout contrast. FINDINGS: For the purposes of this dictation, the 5 lowermost iqmkyt-qvxucbinstyfx-iwrh vertebral bodies are labeled L1- L5.Alignment of the lumbar spine is within normal limits. Vertebral body height is maintained. Bone marrow edema is seen at the inferior L3 and superior L4 vertebralbodies and bilateral L4 pedicles, favored to be degenerative in nature.Suggestion of a synovial cyst at the yephzS38-W37 level (series 301image eight).No spinal cord signal [...] flavum buckling versus synovial cyst at the gnyosE74-V19 level (series 301image eight). MRI thoracic spine can beconsidered for further evaluation.7. Mild clumping of the cauda equina nerve roots, which is nonspecificbut may represent arachnoiditis. Postcontrast imaging can be consideredfor further evaluation.Electronically Signed By: Maxim Sultana03/30/2023 12:36 CDTWorkstation Name: [id number] [id number] 11:45:01* Test Item Value Reference Range Interpretation [...] 5.7- 6.4% indicates increased risk for diabetes (prediabetes)."Fish Hatchery Inspector ID - ADMEEG AWAKE AND WMLLCO8785-44-22 09:57:53Steph Martinez MD 03/30/2023 9:[address] [facility] Type: Inpatient, outpatient, EMUDATE(s) OF EE03/30/23DATE OF REPORT: 03/30/23MRN: [id number] of : 1970EE-1454Start time: 08:36Stop time: 09:23ICD-10: R56.9 CPT Code: 57919 (awake and asleep)HISTORY: 53 y/o female with [...] EEG recordings. Steph Elias MD, MPHNeurophysiology/Epilepsy AttendingCHI [facility] Center EEG AWAKE AND HCCYCC3503-80-51 09:57:53Gabrakil Martinez MD 03/30/2023 9:[address] Type: Inpatient, outpatient, EMUDATE(s) OF EE03/30/23DATE OF REPORT: 03/30/23MRN: [id number] of : 1970EE-1454Start time: 08:36Stop time: 09:23ICD-10: R56.9 CPT Code: 60839 (awake and asleep)HISTORY: 53 y/o female with [...] EEG recordings. Steph Elias MD, MPHNeurophysiology/Epilepsy AttendingCH[facility] EEG AWAKE AND [id number] 09:57:53Gadarcy Martinez MD 03/30/2023 9:[address] EEG Type: Inpatient, outpatient, EMUDATE(s) OF EE03/30/23DATE OF REPORT: 03/30/23MRN: [id number] of : 1970EE-1454Start time: 08:36Stop time: 09:ICD-10: R56.9 CPT Code: 87826 (awake and asleep)HISTORY: 53 y/o female with [...] EEG recordings. Steph Elias MD, MPHNeurophysiology/Epilepsy AttendingCH[facility] VALPROIC ACID LEVEL, [id number] 09:42:31* Test Item Value Reference Range Interpretation Comme nts VALPROIC ACID TOTAL (BEAKER) (test code = 924) 76 ug/mL 50-100 Therapeutic range for some clinical conditions may be >100 ug/mLUrinalysis w/Microscopic + Reflex to Nzuavja3617-43-34 08:43:51* Test Item Value Reference Range Interpretation Comme nts Color, UA (test code = 5778-6) Yellow Clarity, UA (test code = 5767-9) Clear Specific [place], UA (test code = 5811-5) 1.033 1.001-1.035 pH, UA (test code = 5803-2) 6.0 5.0-8.0 Protein, UA (test code = 51137-3) 30 mg/dL Negative A Glucose, UA (test code = 365) Negative Negative Ketones, UA (test code = 2514-8) Negative Negative Bilirubin, UA (test code = 25256-3) Negative Negative Blood, UA (test code = 69352-5) Small Negative A Nitrite, UA (test code = 5802-4) Negative Negative Leukocytes, UA (test code = 5799-2) Negative Negative Urobilinogen, UA (test code = 70984-5) 0.2 0.2-1.0 RBC, UA (test code = 72901-9) 51 See_Comment [Automated message] The system which [...] Occasional Squam Epithel, UA (test code = 62516-5) See_Comment [Automated message] The system which generated this result transmitted reference range: /HPF. The reference range was not used to interpret this result as normal/abnormal. Specimen Source (test code = 2795) LYNDSAY (test code = LYNDSAY) Fish Hatchery Inspector ID - [auto]Fish Hatchery Inspector ID - tech Lab Interpretation (test code = 65816-7) Abnormal [facility] CenterUrinalysis w/Microscopic + Reflex to Culture 2023-03-30 08:43:51* Test Item Value Reference Range Interpretation Comme nts Color, UA (test code = 5778-6) Yellow Clarity, UA (test code = 5767-9) Clear Specific [place], UA (test code = 5811-5) 1.033 1.001-1.035 pH, UA (test code = 5803-2) 6.0 5.0-8.0 Protein, UA (test code = 12114-2) 30 mg/dL Negative A Glucose, UA (test code = 365) Negative Negative Ketones, UA (test code = 2514-8) Negative Negative Bilirubin, UA (test code = 65597-8) Negative Negative Blood, UA (test code = 31289-8) Small Negative A Nitrite, UA (test code = 5802-4) Negative Negative Leukocytes, UA (test code = 5799-2) Negative Negative Urobilinogen, UA (test code = 53944-9) 0.2 0.2-1.0 RBC, UA (test code = 92784-3) 51 See_Comment [Automated message] The system which [...] Occasional Squam Epithel, UA (test code = 29979-4) See_Comment [Automated message] The system which generated this result transmitted reference range: /HPF. The reference range was not used to interpret this result as normal/abnormal. Specimen Source (test code = 2795) LYNDSAY (test code = LYNDSAY) Fish Hatchery Inspector ID - [auto]Fish Hatchery Inspector ID - tech Lab Interpretation (test code = 99680-9) Abnormal [facility] CenterUrinalysis w/Microscopic + Reflex to Culture 2023-03-30 08:43:51* Test Item Value Reference Range Interpretation Comme nts Color, UA (test code = 5778-6) Yellow Clarity, UA (test code = 5767-9) Clear Specific [place], UA (test code = 5811-5) 1.033 1.001-1.035 pH, UA (test code = 5803-2) 6.0 5.0-8.0 Protein, UA (test code = 33682-2) 30 mg/dL Negative A Glucose, UA (test code = 365) Negative Negative Ketones, UA (test code = 2514-8) Negative Negative Bilirubin, UA (test code = 06288-6) Negative Negative Blood, UA (test code = 09903-3) Small Negative A Nitrite, UA (test code = 5802-4) Negative Negative Leukocytes, UA (test code = 5799-2) Negative Negative Urobilinogen, UA (test code = 44208-8) 0.2 0.2-1.0 RBC, UA (test code = 93766-8) 51 See_Comment [Automated message] The system which [...] Occasional Squam Epithel, UA (test code = 03654-6) See_Comment [Automated message] The system which generated this result transmitted reference range: /HPF. The reference range was not used to interpret this result as normal/abnormal. Specimen Source (test code = 2795) LYNDSAY (test code = LYNDSAY) Fish Hatchery Inspector ID - [auto]Fish Hatchery Inspector ID - tech Lab Interpretation (test code = 67817-9) Abnormal [facility] CenterUrinalysis w/Microscopic + Reflex to Culture 2023-03-30 08:43:51* Test Item Value Reference Range Interpretation Comme nts Color, UA (test code = 5778-6) Yellow Clarity, UA (test code = 5767-9) Clear Specific [place], UA (test code = 5811-5) 1.033 1.001-1.035 pH, UA (test code = 5803-2) 6.0 5.0-8.0 Protein, UA (test code = 68135-0) 30 mg/dL Negative A Glucose, UA (test code = 365) Negative Negative Ketones, UA (test code = 2514-8) Negative Negative Bilirubin, UA (test code = 19542-9) Negative Negative Blood, UA (test code = 26159-8) Small Negative A Nitrite, UA (test code = 5802-4) Negative Negative Leukocytes, UA (test code = 5799-2) Negative Negative Urobilinogen, UA (test code = 37031-0) 0.2 0.2-1.0 RBC, UA (test code = 74977-3) 51 See_Comment [Automated message] The system which [...] Occasional Squam Epithel, UA (test code = 37621-7) See_Comment [Automated message] The system which generated this result transmitted reference range: /HPF. The reference range was not used to interpret this result as normal/abnormal. Specimen Source (test code = 2795) LYNDSAY (test code = LYNDSAY) Fish Hatchery Inspector ID - [auto]Fish Hatchery Inspector ID - tech Lab Interpretation (test code = 81065-2) Abnormal [facility] CenterUrinalysis w/Microscopic + Reflex to Culture 2023-03-30 08:43:51* Test Item Value Reference Range Interpretation Comme nts Color, UA (test code = 5778-6) Yellow Clarity, UA (test code = 5767-9) Clear Specific [place], UA (test code = 5811-5) 1.033 1.001-1.035 pH, UA (test code = 5803-2) 6.0 5.0-8.0 Protein, UA (test code = 52429-3) 30 mg/dL Negative A Glucose, UA (test code = 365) Negative Negative Ketones, UA (test code = 2514-8) Negative Negative Bilirubin, UA (test code = 13227-7) Negative Negative Blood, UA (test code = 40260-4) Small Negative A Nitrite, UA (test code = 5802-4) Negative Negative Leukocytes, UA (test code = 5799-2) Negative Negative Urobilinogen, UA (test code = 38745-9) 0.2 0.2-1.0 RBC, UA (test code = 53354-2) 51 See_Comment [Automated message] The system which [...] Occasional Squam Epithel, UA (test code = 71270-0) See_Comment [Automated message] The system which generated this result transmitted reference range: /HPF. The reference range was not used to interpret this result as normal/abnormal. Specimen Source (test code = 2795) LYNDSAY (test code = LYNDSAY) Fish Hatchery Inspector ID - [auto]Fish Hatchery Inspector ID - tech Lab Interpretation (test code = 32892-4) Abnormal [facility]Ur[facility] w/Microscopic + Reflex to Culture 2023-03-30 08:43:51* Test Item Value Reference Range Interpretation Comme nts Color, UA (test code = 5778-6) Yellow Clarity, UA (test code = 5767-9) Clear Specific [place], UA (test code = 5811-5) 1.033 1.001-1.035 pH, UA (test code = 5803-2) 6.0 5.0-8.0 Protein, UA (test code = 12176-2) 30 mg/dL Negative A Glucose, UA (test code = 365) Negative Negative Ketones, UA (test code = 2514-8) Negative Negative Bilirubin, UA (test code = 47821-1) Negative Negative Blood, UA (test code = 36885-9) Small Negative A Nitrite, UA (test code = 5802-4) Negative Negative Leukocytes, UA (test code = 5799-2) Negative Negative Urobilinogen, UA (test code = 46565-1) 0.2 0.2-1.0 RBC, UA (test code = 55166-1) 51 See_Comment [Automated message] The system which [...] Occasional Squam Epithel, UA (test code = 48255-0) See_Comment [Automated message] The system which generated this result transmitted reference range: /HPF. The reference range was not used to interpret this result as normal/abnormal. Specimen Source (test code = 2795) LYNDSAY (test code = LYNDSAY) Fish Hatchery Inspector ID - [auto]Fish Hatchery Inspector ID - tech Lab Interpretation (test code = 58476-3) Abnormal [facility] w/Microscopic + Reflex to Culture 2023-03-30 08:43:51* Test Item Value Reference Range Interpretation Comme nts Color, UA (test code = 5778-6) Yellow Clarity, UA (test code = 5767-9) Clear Specific [place], UA (test code = 5811-5) 1.033 1.001-1.035 pH, UA (test code = 5803-2) 6.0 5.0-8.0 Protein, UA (test code = 91114-8) 30 mg/dL Negative A Glucose, UA (test code = 365) Negative Negative Ketones, UA (test code = 2514-8) Negative Negative Bilirubin, UA (test code = 21139-8) Negative Negative Blood, UA (test code = 59458-8) Small Negative A Nitrite, UA (test code = 5802-4) Negative Negative Leukocytes, UA (test code = 5799-2) Negative Negative Urobilinogen, UA (test code = 60694-5) 0.2 0.2-1.0 RBC, UA (test code = 44923-4) 51 See_Comment [Automated message] The system which [...] Occasional Squam Epithel, UA (test code = 20623-9) See_Comment [Automated message] The system which generated this result transmitted reference range: /HPF. The reference range was not used to interpret this result as normal/abnormal. Specimen Source (test code = 2795) LYNDSAY (test code = LYNDSAY) Fish Hatchery Inspector ID - [auto]Fish Hatchery Inspector ID - tech Lab Interpretation (test code = 20024-2) [facility]-30 08:43:51* Test Item Value Reference Range Interpretation Comme nts Color, UA (test code = 5778-6) Yellow Clarity, UA (test code = 5767-9) Clear Specific [place], UA (test code = 5811-5) 1.033 1.001-1.035 pH, UA (test code = 5803-2) 6.0 5.0-8.0 Protein, UA (test code = 60214-6) 30 mg/dL Negative A Glucose, UA (test code = 365) Negative Negative Ketones, UA (test code = 2514-8) Negative Negative Bilirubin, UA (test code = 16764-6) Negative Negative Blood, UA (test code = 48659-5) Small Negative A Nitrite, UA (test code = 5802-4) Negative Negative Leukocytes, UA (test code = 5799-2) Negative Negative Urobilinogen, UA (test code = 42382-4) 0.2 0.2-1.0 RBC, UA (test code = 46610-0) 51 See_Comment [Automated message] The system which [...] Occasional Squam Epithel, UA (test code = 88495-4) See_Comment [Automated message] The system which generated this result transmitted reference range: /HPF. The reference range was not used to interpret this result as normal/abnormal. Specimen Source (test code = 2795) LYNDSAY (test code = LYNDSAY) Fish Hatchery Inspector ID - [auto]Fish Hatchery Inspector ID - tech Lab Interpretation (test code = 02097-7) [facility] 08:43:51* Test Item Value Reference Range Interpretation Comme nts Color, UA (test code = 5778-6) Yellow Clarity, UA (test code = 5767-9) Clear Specific [place], UA (test code = 5811-5) 1.033 1.001-1.035 pH, UA (test code = 5803-2) 6.0 5.0-8.0 Protein, UA (test code = 56326-5) 30 mg/dL Negative A Glucose, UA (test code = 365) Negative Negative Ketones, UA (test code = 2514-8) Negative Negative Bilirubin, UA (test code = 93990-2) Negative Negative Blood, UA (test code = 25057-0) Small Negative A Nitrite, UA (test code = 5802-4) Negative Negative Leukocytes, UA (test code = 5799-2) Negative Negative Urobilinogen, UA (test code = 97863-7) 0.2 0.2-1.0 RBC, UA (test code = 29489-4) 51 See_Comment [Automated message] The system which [...] Occasional Squam Epithel, UA (test code = 63721-5) See_Comment [Automated message] The system which generated this result transmitted reference range: /HPF. The reference range was not used to interpret this result as normal/abnormal. Specimen Source (test code = 2795) LYNDSAY (test code = LYNDSAY) Fish Hatchery Inspector ID - [auto]Fish Hatchery Inspector ID - tech Lab Interpretation (test code = 23340-5) [facility]lex [facility] Culture 2023-03-30 08:43:51* Test Item Value Reference Range Interpretation Comme nts Color, UA (test code = 5778-6) Yellow Clarity, UA (test code = 5767-9) Clear Specific [place], UA (test code = 5811-5) 1.033 1.001-1.035 pH, UA (test code = 5803-2) 6.0 5.0-8.0 Protein, UA (test code = 38755-0) 30 mg/dL Negative A Glucose, UA (test code = 365) Negative Negative Ketones, UA (test code = 2514-8) Negative Negative Bilirubin, UA (test code = 35966-6) Negative Negative Blood, UA (test code = 74903-3) Small Negative A Nitrite, UA (test code = 5802-4) Negative Negative Leukocytes, UA (test code = 5799-2) Negative Negative Urobilinogen, UA (test code = 10632-0) 0.2 0.2-1.0 RBC, UA (test code = 62170-9) 51 See_Comment [Automated message] The system which [...] Occasional Squam Epithel, UA (test code = 41594-2) See_Comment [Automated message] The system which generated this result transmitted reference range: /HPF. The reference range was not used to interpret this result as normal/abnormal. Specimen Source (test code = 2795) LYNDSAY (test code = LYNDSAY) Fish Hatchery Inspector ID - [auto]Fish Hatchery Inspector ID - tech Lab Interpretation (test code = 92128-5) [facility] Reflex [facility] Culture 2023-03-30 08:43:51* Test Item Value Reference Range Interpretation Comme nts Color, UA (test code = 5778-6) Yellow Clarity, UA (test code = 5767-9) Clear Specific [place], UA (test code = 5811-5) 1.033 1.001-1.035 pH, UA (test code = 5803-2) 6.0 5.0-8.0 Protein, UA (test code = 65143-7) 30 mg/dL Negative A Glucose, UA (test code = 365) Negative Negative Ketones, UA (test code = 2514-8) Negative Negative Bilirubin, UA (test code = 88349-1) Negative Negative Blood, UA (test code = 07576-4) Small Negative A Nitrite, UA (test code = 5802-4) Negative Negative Leukocytes, UA (test code = 5799-2) Negative Negative Urobilinogen, UA (test code = 56008-5) 0.2 0.2-1.0 RBC, UA (test code = 78891-1) 51 See_Comment [Automated message] The system which [...] Occasional Squam Epithel, UA (test code = 03775-4) See_Comment [Automated message] The system which generated this result transmitted reference range: /HPF. The reference range was not used to interpret this result as normal/abnormal. Specimen Source (test code = 2795) LYNDSAY (test code = LYNDSAY) Fish Hatchery Inspector ID - [auto]Fish Hatchery Inspector ID - tech Lab Interpretation (test code = 15114-8) [facility]lex [facility] Culture 2023-03-30 08:43:51* Test Item Value Reference Range Interpretation Comme nts Color, UA (test code = 5778-6) Yellow Clarity, UA (test code = 5767-9) Clear Specific [place], UA (test code = 5811-5) 1.033 1.001-1.035 pH, UA (test code = 5803-2) 6.0 5.0-8.0 Protein, UA (test code = 42011-3) 30 mg/dL Negative A Glucose, UA (test code = 365) Negative Negative Ketones, UA (test code = 2514-8) Negative Negative Bilirubin, UA (test code = 70176-4) Negative Negative Blood, UA (test code = 82247-0) Small Negative A Nitrite, UA (test code = 5802-4) Negative Negative Leukocytes, UA (test code = 5799-2) Negative Negative Urobilinogen, UA (test code = 99201-4) 0.2 0.2-1.0 RBC, UA (test code = 77094-1) 51 See_Comment [Automated message] The system which [...] Occasional Squam Epithel, UA (test code = 46427-0) See_Comment [Automated message] The system which generated this result transmitted reference range: /HPF. The reference range was not used to interpret this result as normal/abnormal. Specimen Source (test code = 2795) LYNDSAY (test code = LYNDSAY) Fish Hatchery Inspector ID - [auto]Fish Hatchery Inspector ID - tech Lab Interpretation (test code = 21103-7) [facility] 2023-03-30 08:43:51* Test Item Value Reference Range Interpretation Comme nts Color, UA (test code = 5778-6) Yellow Clarity, UA (test code = 5767-9) Clear Specific [place], UA (test code = 5811-5) 1.033 1.001-1.035 pH, UA (test code = 5803-2) 6.0 5.0-8.0 Protein, UA (test code = 17988-9) 30 mg/dL Negative A Glucose, UA (test code = 365) Negative Negative Ketones, UA (test code = 2514-8) Negative Negative Bilirubin, UA (test code = 93649-3) Negative Negative Blood, UA (test code = 48691-2) Small Negative A Nitrite, UA (test code = 5802-4) Negative Negative Leukocytes, UA (test code = 5799-2) Negative Negative Urobilinogen, UA (test code = 38271-1) 0.2 0.2-1.0 RBC, UA (test code = 05039-3) 51 See_Comment [Automated message] The system which [...] Occasional Squam Epithel, UA (test code = 26003-6) See_Comment [Automated message] The system which generated this result transmitted reference range: /HPF. The reference range was not used to interpret this result as normal/abnormal. Specimen Source (test code = 2795) LYNDSAY (test code = LYNDSAY) Fish Hatchery Inspector ID - [auto]Fish Hatchery Inspector ID - tech Lab Interpretation (test code = 75827-0) [facility] Culture 2023-03-30 08:43:51* Test Item Value Reference Range Interpretation Comme nts Color, UA (test code = 5778-6) Yellow Clarity, UA (test code = 5767-9) Clear Specific [place], UA (test code = 5811-5) 1.033 1.001-1.035 pH, UA (test code = 5803-2) 6.0 5.0-8.0 Protein, UA (test code = 71669-6) 30 mg/dL Negative A Glucose, UA (test code = 365) Negative Negative Ketones, UA (test code = 2514-8) Negative Negative Bilirubin, UA (test code = 80943-9) Negative Negative Blood, UA (test code = 24855-8) Small Negative A Nitrite, UA (test code = 5802-4) Negative Negative Leukocytes, UA (test code = 5799-2) Negative Negative Urobilinogen, UA (test code = 28401-7) 0.2 0.2-1.0 RBC, UA (test code = 87552-8) 51 See_Comment [Automated message] The system which [...] Occasional Squam Epithel, UA (test code = 22572-5) See_Comment [Automated message] The system which generated this result transmitted reference range: /HPF. The reference range was not used to interpret this result as normal/abnormal. Specimen Source (test code = 2795) LYNDSAY (test code = LYNDSAY) Fish Hatchery Inspector ID - [auto]Fish Hatchery Inspector ID - tech Lab Interpretation (test code = 42814-6) [facility] Reflex [facility] Culture 2023-03-30 08:43:51* Test Item Value Reference Range Interpretation Comme nts Color, UA (test code = 5778-6) Yellow Clarity, UA (test code = 5767-9) Clear Specific [place], UA (test code = 5811-5) 1.033 1.001-1.035 pH, UA (test code = 5803-2) 6.0 5.0-8.0 Protein, UA (test code = 03177-8) 30 mg/dL Negative A Glucose, UA (test code = 365) Negative Negative Ketones, UA (test code = 2514-8) Negative Negative Bilirubin, UA (test code = 85842-5) Negative Negative Blood, UA (test code = 01584-7) Small Negative A Nitrite, UA (test code = 5802-4) Negative Negative Leukocytes, UA (test code = 5799-2) Negative Negative Urobilinogen, UA (test code = 79828-3) 0.2 0.2-1.0 RBC, UA (test code = 28617-7) 51 See_Comment [Automated message] The system which [...] Occasional Squam Epithel, UA (test code = 84299-4) See_Comment [Automated message] The system which generated this result transmitted reference range: /HPF. The reference range was not used to interpret this result as normal/abnormal. Specimen Source (test code = 2795) LYNDSAY (test code = LYNDSAY) Fish Hatchery Inspector ID - [auto]Fish Hatchery Inspector ID - tech Lab Interpretation (test code = 44389-1) [facility] Reflex [facility] Culture 2023-03-30 08:43:51* Test Item Value Reference Range Interpretation Comme nts Color, UA (test code = 5778-6) Yellow Clarity, UA (test code = 5767-9) Clear Specific [place], UA (test code = 5811-5) 1.033 1.001-1.035 pH, UA (test code = 5803-2) 6.0 5.0-8.0 Protein, UA (test code = 95077-9) 30 mg/dL Negative A Glucose, UA (test code = 365) Negative Negative Ketones, UA (test code = 2514-8) Negative Negative Bilirubin, UA (test code = 21782-5) Negative Negative Blood, UA (test code = 74395-8) Small Negative A Nitrite, UA (test code = 5802-4) Negative Negative Leukocytes, UA (test code = 5799-2) Negative Negative Urobilinogen, UA (test code = 39176-3) 0.2 0.2-1.0 RBC, UA (test code = 71676-2) 51 See_Comment [Automated message] The system which [...] Occasional Squam Epithel, UA (test code = 22268-4) See_Comment [Automated message] The system which generated this result transmitted reference range: /HPF. The reference range was not used to interpret this result as normal/abnormal. Specimen Source (test code = 2795) LYNDSAY (test code = LYNDSAY) Fish Hatchery Inspector ID - [auto]Fish Hatchery Inspector ID - tech Lab Interpretation (test code = 04275-7) [facility]normal [facility] Reflex [facility] Culture 2023-03-30 08:43:51* Test Item Value Reference Range Interpretation Comme nts Color, UA (test code = 5778-6) Yellow Clarity, UA (test code = 5767-9) Clear Specific [place], UA (test code = 5811-5) 1.033 1.001-1.035 pH, UA (test code = 5803-2) 6.0 5.0-8.0 Protein, UA (test code = 10699-8) 30 mg/dL Negative A Glucose, UA (test code = 365) Negative Negative Ketones, UA (test code = 2514-8) Negative Negative Bilirubin, UA (test code = 83981-9) Negative Negative Blood, UA (test code = 29178-6) Small Negative A Nitrite, UA (test code = 5802-4) Negative Negative Leukocytes, UA (test code = 5799-2) Negative Negative Urobilinogen, UA (test code = 15334-4) 0.2 0.2-1.0 RBC, UA (test code = 02811-5) 51 See_Comment [Automated message] The system which [...] Occasional Squam Epithel, UA (test code = 30859-4) See_Comment [Automated message] The system which generated this result transmitted reference range: /HPF. The reference range was not used to interpret this result as normal/abnormal. Specimen Source (test code = 2795) LYNDSAY (test code = LYNDSAY) Fish Hatchery Inspector ID - [auto]Fish Hatchery Inspector ID - tech Lab Interpretation (test code = 02458-7) [facility]normal [facility] Reflex [facility] Culture 2023-03-30 08:43:51* Test Item Value Reference Range Interpretation Comme nts Color, UA (test code = 5778-6) Yellow Clarity, UA (test code = 5767-9) Clear Specific [place], UA (test code = 5811-5) 1.033 1.001-1.035 pH, UA (test code = 5803-2) 6.0 5.0-8.0 Protein, UA (test code = 80491-0) 30 mg/dL Negative A Glucose, UA (test code = 365) Negative Negative Ketones, UA (test code = 2514-8) Negative Negative Bilirubin, UA (test code = 81478-2) Negative Negative Blood, UA (test code = 10789-3) Small Negative A Nitrite, UA (test code = 5802-4) Negative Negative Leukocytes, UA (test code = 5799-2) Negative Negative Urobilinogen, UA (test code = 28649-2) 0.2 0.2-1.0 RBC, UA (test code = 74865-0) 51 See_Comment [Automated message] The system which [...] Occasional Squam Epithel, UA (test code = 91057-4) See_Comment [Automated message] The system which generated this result transmitted reference range: /HPF. The reference range was not used to interpret this result as normal/abnormal. Specimen Source (test code = 2795) LYNDSAY (test code = LYNDSAY) Fish Hatchery Inspector ID - [auto]Fish Hatchery Inspector ID - tech Lab Interpretation (test code = 70090-1) [facility]normal [facility] Reflex [facility] Culture 2023-03-30 08:43:51* Test Item Value Reference Range Interpretation Comme nts Color, UA (test code = 5778-6) Yellow Clarity, UA (test code = 5767-9) Clear Specific [place], UA (test code = 5811-5) 1.033 1.001-1.035 pH, UA (test code = 5803-2) 6.0 5.0-8.0 Protein, UA (test code = 77787-1) 30 mg/dL Negative A Glucose, UA (test code = 365) Negative Negative Ketones, UA (test code = 2514-8) Negative Negative Bilirubin, UA (test code = 74526-2) Negative Negative Blood, UA (test code = 17405-9) Small Negative A Nitrite, UA (test code = 5802-4) Negative Negative Leukocytes, UA (test code = 5799-2) Negative Negative Urobilinogen, UA (test code = 09635-0) 0.2 0.2-1.0 RBC, UA (test code = 43750-9) 51 See_Comment [Automated message] The system which [...] Occasional Squam Epithel, UA (test code = 30531-5) See_Comment [Automated message] The system which generated this result transmitted reference range: /HPF. The reference range was not used to interpret this result as normal/abnormal. Specimen Source (test code = 2795) LYNDSAY (test code = LYNDSAY) Fish Hatchery Inspector ID - [auto]Fish Hatchery Inspector ID - tech Lab Interpretation (test code = 72128-1) [facility] Reflex [facility] Culture 2023-03-30 08:43:51* Test Item Value Reference Range Interpretation Comme nts Color, UA (test code = 5778-6) Yellow Clarity, UA (test code = 5767-9) Clear Specific [place], UA (test code = 5811-5) 1.033 1.001-1.035 pH, UA (test code = 5803-2) 6.0 5.0-8.0 Protein, UA (test code = 06466-5) 30 mg/dL Negative A Glucose, UA (test code = 365) Negative Negative Ketones, UA (test code = 2514-8) Negative Negative Bilirubin, UA (test code = 66281-9) Negative Negative Blood, UA (test code = 25395-6) Small Negative A Nitrite, UA (test code = 5802-4) Negative Negative Leukocytes, UA (test code = 5799-2) Negative Negative Urobilinogen, UA (test code = 29396-9) 0.2 0.2-1.0 RBC, UA (test code = 71158-6) 51 See_Comment [Automated message] The system which [...] Occasional Squam Epithel, UA (test code = 34777-7) See_Comment [Automated message] The system which generated this result transmitted reference range: /HPF. The reference range was not used to interpret this result as normal/abnormal. Specimen Source (test code = 2795) LYNDSAY (test code = LYNDSAY) Fish Hatchery Inspector ID - [auto]Fish Hatchery Inspector ID - tech Lab Interpretation (test code = 80527-8) [facility] Reflex [facility] Culture 2023-03-30 08:43:51* Test Item Value Reference Range Interpretation Comme nts Color, UA (test code = 5778-6) Yellow Clarity, UA (test code = 5767-9) Clear Specific [place], UA (test code = 5811-5) 1.033 1.001-1.035 pH, UA (test code = 5803-2) 6.0 5.0-8.0 Protein, UA (test code = 77900-0) 30 mg/dL Negative A Glucose, UA (test code = 365) Negative Negative Ketones, UA (test code = 2514-8) Negative Negative Bilirubin, UA (test code = 43620-3) Negative Negative Blood, UA (test code = 94003-4) Small Negative A Nitrite, UA (test code = 5802-4) Negative Negative Leukocytes, UA (test code = 5799-2) Negative Negative Urobilinogen, UA (test code = 12452-3) 0.2 0.2-1.0 RBC, UA (test code = 41467-8) 51 See_Comment [Automated message] The system which [...] Occasional Squam Epithel, UA (test code = 64688-0) See_Comment [Automated message] The system which generated this result transmitted reference range: /HPF. The reference range was not used to interpret this result as normal/abnormal. Specimen Source (test code = 2795) LYNDSAY (test code = LYNDSAY) Fish Hatchery Inspector ID - [auto]Fish Hatchery Inspector ID - tech Lab Interpretation (test code = 80514-6) [facility] Reflex [facility] Culture 2023-03-30 08:43:51* Test Item Value Reference Range Interpretation Comme nts Color, UA (test code = 5778-6) Yellow Clarity, UA (test code = 5767-9) Clear Specific [place], UA (test code = 5811-5) 1.033 1.001-1.035 pH, UA (test code = 5803-2) 6.0 5.0-8.0 Protein, UA (test code = 46301-7) 30 mg/dL Negative A Glucose, UA (test code = 365) Negative Negative Ketones, UA (test code = 2514-8) Negative Negative Bilirubin, UA (test code = 94781-2) Negative Negative Blood, UA (test code = 96751-4) Small Negative A Nitrite, UA (test code = 5802-4) Negative Negative Leukocytes, UA (test code = 5799-2) Negative Negative Urobilinogen, UA (test code = 13052-8) 0.2 0.2-1.0 RBC, UA (test code = 86172-6) 51 See_Comment [Automated message] The system which [...] Occasional Squam Epithel, UA (test code = 63416-4) See_Comment [Automated message] The system which generated this result transmitted reference range: /HPF. The reference range was not used to interpret this result as normal/abnormal. Specimen Source (test code = 2795) LYNDSAY (test code = LYNDSAY) Fish Hatchery Inspector ID - [auto]Fish Hatchery Inspector ID - tech Lab Interpretation (test code = 39830-0) [facility] Reflex [facility] Culture 2023-03-30 08:43:51* Test Item Value Reference Range Interpretation Comme nts Color, UA (test code = 5778-6) Yellow Clarity, UA (test code = 5767-9) Clear Specific [place], UA (test code = 5811-5) 1.033 1.001-1.035 pH, UA (test code = 5803-2) 6.0 5.0-8.0 Protein, UA (test code = 77752-2) 30 mg/dL Negative A Glucose, UA (test code = 365) Negative Negative Ketones, UA (test code = 2514-8) Negative Negative Bilirubin, UA (test code = 56790-5) Negative Negative Blood, UA (test code = 86692-9) Small Negative A Nitrite, UA (test code = 5802-4) Negative Negative Leukocytes, UA (test code = 5799-2) Negative Negative Urobilinogen, UA (test code = 69747-8) 0.2 0.2-1.0 RBC, UA (test code = 37113-4) 51 See_Comment [Automated message] The system which [...] Occasional Squam Epithel, UA (test code = 40799-6) See_Comment [Automated message] The system which generated this result transmitted reference range: /HPF. The reference range was not used to interpret this result as normal/abnormal. Specimen Source (test code = 2795) LYNDSAY (test code = LYNDSAY) Fish Hatchery Inspector ID - [auto]Fish Hatchery Inspector ID - tech Lab Interpretation (test code = 81511-9) [facility] Reflex [facility] Culture 2023-03-30 08:43:51* Test Item Value Reference Range Interpretation Comme nts Color, UA (test code = 5778-6) Yellow Clarity, UA (test code = 5767-9) Clear Specific [place], UA (test code = 5811-5) 1.033 1.001-1.035 pH, UA (test code = 5803-2) 6.0 5.0-8.0 Protein, UA (test code = 02125-8) 30 mg/dL Negative A Glucose, UA (test code = 365) Negative Negative Ketones, UA (test code = 2514-8) Negative Negative Bilirubin, UA (test code = 59590-4) Negative Negative Blood, UA (test code = 56265-5) Small Negative A Nitrite, UA (test code = 5802-4) Negative Negative Leukocytes, UA (test code = 5799-2) Negative Negative Urobilinogen, UA (test code = 36628-1) 0.2 0.2-1.0 RBC, UA (test code = 32880-7) 51 See_Comment [Automated message] The system which [...] Occasional Squam Epithel, UA (test code = 61543-1) See_Comment [Automated message] The system which generated this result transmitted reference range: /HPF. The reference range was not used to interpret this result as normal/abnormal. Specimen Source (test code = 2795) LYNDSAY (test code = LYNDSAY) Fish Hatchery Inspector ID - [auto]Fish Hatchery Inspector ID - tech Lab Interpretation (test code = 52746-2) [facility] Reflex to Culture 2023-03-30 08:43:51* Test Item Value Reference Range Interpretation Comme nts Color, UA (test code = 5778-6) Yellow Clarity, UA (test code = 5767-9) Clear Specific [place], UA (test code = 5811-5) 1.033 1.001-1.035 pH, UA (test code = 5803-2) 6.0 5.0-8.0 Protein, UA (test code = 71228-1) 30 mg/dL Negative A Glucose, UA (test code = 365) Negative Negative Ketones, UA (test code = 2514-8) Negative Negative Bilirubin, UA (test code = 47015-8) Negative Negative Blood, UA (test code = 03368-9) Small Negative A Nitrite, UA (test code = 5802-4) Negative Negative Leukocytes, UA (test code = 5799-2) Negative Negative Urobilinogen, UA (test code = 19322-0) 0.2 0.2-1.0 RBC, UA (test code = 90265-7) 51 See_Comment [Automated message] The system which [...] Occasional Squam Epithel, UA (test code = 57525-8) See_Comment [Automated message] The system which generated this result transmitted reference range: /HPF. The reference range was not used to interpret this result as normal/abnormal. Specimen Source (test code = 2795) LYNDSAY (test code = LYNDSAY) Fish Hatchery Inspector ID - [auto]Fish Hatchery Inspector ID - tech Lab Interpretation (test code = 79207-9) [facility] Reflex [facility] Culture 2023-03-30 08:43:51* Test Item Value Reference Range Interpretation Comme nts Color, UA (test code = 5778-6) Yellow Clarity, UA (test code = 5767-9) Clear Specific [place], UA (test code = 5811-5) 1.033 1.001-1.035 pH, UA (test code = 5803-2) 6.0 5.0-8.0 Protein, UA (test code = 45836-3) 30 mg/dL Negative A Glucose, UA (test code = 365) Negative Negative Ketones, UA (test code = 2514-8) Negative Negative Bilirubin, UA (test code = 85361-6) Negative Negative Blood, UA (test code = 98568-5) Small Negative A Nitrite, UA (test code = 5802-4) Negative Negative Leukocytes, UA (test code = 5799-2) Negative Negative Urobilinogen, UA (test code = 40727-7) 0.2 0.2-1.0 RBC, UA (test code = 00521-9) 51 See_Comment [Automated message] The system which [...] Occasional Squam Epithel, UA (test code = 16005-2) See_Comment [Automated message] The system which generated this result transmitted reference range: /HPF. The reference range was not used to interpret this result as normal/abnormal. Specimen Source (test code = 2795) LYNDSAY (test code = LYNDSAY) Fish Hatchery Inspector ID - [auto]Fish Hatchery Inspector ID - tech Lab Interpretation (test code = 33486-1) [facility] 08:43:51* Test Item Value Reference Range Interpretation Comme nts Color, UA (test code = 5778-6) Yellow Clarity, UA (test code = 5767-9) Clear Specific [place], UA (test code = 5811-5) 1.033 1.001-1.035 pH, UA (test code = 5803-2) 6.0 5.0-8.0 Protein, UA (test code = 43145-0) 30 mg/dL Negative A Glucose, UA (test code = 365) Negative Negative Ketones, UA (test code = 2514-8) Negative Negative Bilirubin, UA (test code = 61689-2) Negative Negative Blood, UA (test code = 41713-8) Small Negative A Nitrite, UA (test code = 5802-4) Negative Negative Leukocytes, UA (test code = 5799-2) Negative Negative Urobilinogen, UA (test code = 19601-4) 0.2 0.2-1.0 RBC, UA (test code = 33131-6) 51 See_Comment [Automated message] The system which [...] Occasional Squam Epithel, UA (test code = 58993-9) See_Comment [Automated message] The system which generated this result transmitted reference range: /HPF. The reference range was not used to interpret this result as normal/abnormal. Specimen Source (test code = 2795) LYNDSAY (test code = LYNDSAY) Fish Hatchery Inspector ID - [auto]Fish Hatchery Inspector ID - tech Lab Interpretation (test code = 21557-4) [facility] 2023-03-30 08:43:51* Test Item Value Reference Range Interpretation Comme nts Color, UA (test code = 5778-6) Yellow Clarity, UA (test code = 5767-9) Clear Specific [place], UA (test code = 5811-5) 1.033 1.001-1.035 pH, UA (test code = 5803-2) 6.0 5.0-8.0 Protein, UA (test code = 40609-0) 30 mg/dL Negative A Glucose, UA (test code = 365) Negative Negative Ketones, UA (test code = 2514-8) Negative Negative Bilirubin, UA (test code = 51808-8) Negative Negative Blood, UA (test code = 30818-2) Small Negative A Nitrite, UA (test code = 5802-4) Negative Negative Leukocytes, UA (test code = 5799-2) Negative Negative Urobilinogen, UA (test code = 69512-6) 0.2 0.2-1.0 RBC, UA (test code = 99003-2) 51 See_Comment [Automated message] The system which [...] Occasional Squam Epithel, UA (test code = 61698-1) See_Comment [Automated message] The system which generated this result transmitted reference range: /HPF. The reference range was not used to interpret this result as normal/abnormal. Specimen Source (test code = 2795) LYNDSAY (test code = LYNDSAY) Fish Hatchery Inspector ID - [auto]Fish Hatchery Inspector ID - tech Lab Interpretation (test code = 90733-9) [facility] 2023-03-30 08:43:51* Test Item Value Reference Range Interpretation Comme nts Color, UA (test code = 5778-6) Yellow Clarity, UA (test code = 5767-9) Clear Specific [place], UA (test code = 5811-5) 1.033 1.001-1.035 pH, UA (test code = 5803-2) 6.0 5.0-8.0 Protein, UA (test code = 44348-3) 30 mg/dL Negative A Glucose, UA (test code = 365) Negative Negative Ketones, UA (test code = 2514-8) Negative Negative Bilirubin, UA (test code = 68339-0) Negative Negative Blood, UA (test code = 25211-5) Small Negative A Nitrite, UA (test code = 5802-4) Negative Negative Leukocytes, UA (test code = 5799-2) Negative Negative Urobilinogen, UA (test code = 96120-4) 0.2 0.2-1.0 RBC, UA (test code = 36556-0) 51 See_Comment [Automated message] The system which [...] Occasional Squam Epithel, UA (test code = 09828-4) See_Comment [Automated message] The system which generated this result transmitted reference range: /HPF. The reference range was not used to interpret this result as normal/abnormal. Specimen Source (test code = 2795) LYNDSAY (test code = LYNDSAY) Fish Hatchery Inspector ID - [auto]Fish Hatchery Inspector ID - tech Lab Interpretation (test code = 54603-9) [facility]lex [facility] Culture 2023-03-30 08:43:51* Test Item Value Reference Range Interpretation Comme nts Color, UA (test code = 5778-6) Yellow Clarity, UA (test code = 5767-9) Clear Specific [place], UA (test code = 5811-5) 1.033 1.001-1.035 pH, UA (test code = 5803-2) 6.0 5.0-8.0 Protein, UA (test code = 82435-1) 30 mg/dL Negative A Glucose, UA (test code = 365) Negative Negative Ketones, UA (test code = 2514-8) Negative Negative Bilirubin, UA (test code = 95888-2) Negative Negative Blood, UA (test code = 64270-4) Small Negative A Nitrite, UA (test code = 5802-4) Negative Negative Leukocytes, UA (test code = 5799-2) Negative Negative Urobilinogen, UA (test code = 04068-0) 0.2 0.2-1.0 RBC, UA (test code = 13869-3) 51 See_Comment [Automated message] The system which [...] Occasional Squam Epithel, UA (test code = 12017-7) See_Comment [Automated message] The system which generated this result transmitted reference range: /HPF. The reference range was not used to interpret this result as normal/abnormal. Specimen Source (test code = 2795) LYNDSAY (test code = LYNDSAY) Fish Hatchery Inspector ID - [auto]Fish Hatchery Inspector ID - tech Lab Interpretation (test code = 74725-9) [facility] Culture 2023-03-30 08:43:51* Test Item Value Reference Range Interpretation Comme nts Color, UA (test code = 5778-6) Yellow Clarity, UA (test code = 5767-9) Clear Specific [place], UA (test code = 5811-5) 1.033 1.001-1.035 pH, UA (test code = 5803-2) 6.0 5.0-8.0 Protein, UA (test code = 19474-8) 30 mg/dL Negative A Glucose, UA (test code = 365) Negative Negative Ketones, UA (test code = 2514-8) Negative Negative Bilirubin, UA (test code = 75937-6) Negative Negative Blood, UA (test code = 70799-8) Small Negative A Nitrite, UA (test code = 5802-4) Negative Negative Leukocytes, UA (test code = 5799-2) Negative Negative Urobilinogen, UA (test code = 04671-9) 0.2 0.2-1.0 RBC, UA (test code = 49449-6) 51 See_Comment [Automated message] The system which [...] Occasional Squam Epithel, UA (test code = 28130-0) See_Comment [Automated message] The system which generated this result transmitted reference range: /HPF. The reference range was not used to interpret this result as normal/abnormal. Specimen Source (test code = 2795) LYNDSAY (test code = LYNDSAY) Fish Hatchery Inspector ID - [auto]Fish Hatchery Inspector ID - tech Lab Interpretation (test code = 56482-4) [facility] Reflex [facility] Culture 2023-03-30 08:43:51* Test Item Value Reference Range Interpretation Comme nts Color, UA (test code = 5778-6) Yellow Clarity, UA (test code = 5767-9) Clear Specific [place], UA (test code = 5811-5) 1.033 1.001-1.035 pH, UA (test code = 5803-2) 6.0 5.0-8.0 Protein, UA (test code = 08187-3) 30 mg/dL Negative A Glucose, UA (test code = 365) Negative Negative Ketones, UA (test code = 2514-8) Negative Negative Bilirubin, UA (test code = 87410-7) Negative Negative Blood, UA (test code = 34261-6) Small Negative A Nitrite, UA (test code = 5802-4) Negative Negative Leukocytes, UA (test code = 5799-2) Negative Negative Urobilinogen, UA (test code = 27583-0) 0.2 0.2-1.0 RBC, UA (test code = 42165-6) 51 See_Comment [Automated message] The system which [...] Occasional Squam Epithel, UA (test code = 89621-4) See_Comment [Automated message] The system which generated this result transmitted reference range: /HPF. The reference range was not used to interpret this result as normal/abnormal. Specimen Source (test code = 2795) LYNDSAY (test code = LYNDSAY) Fish Hatchery Inspector ID - [auto]Fish Hatchery Inspector ID - tech Lab Interpretation (test code = 75271-0) [facility] Reflex [facility] Culture 2023-03-30 08:43:51* Test Item Value Reference Range Interpretation Comme nts Color, UA (test code = 5778-6) Yellow Clarity, UA (test code = 5767-9) Clear Specific [place], UA (test code = 5811-5) 1.033 1.001-1.035 pH, UA (test code = 5803-2) 6.0 5.0-8.0 Protein, UA (test code = 02218-9) 30 mg/dL Negative A Glucose, UA (test code = 365) Negative Negative Ketones, UA (test code = 2514-8) Negative Negative Bilirubin, UA (test code = 33722-1) Negative Negative Blood, UA (test code = 97469-8) Small Negative A Nitrite, UA (test code = 5802-4) Negative Negative Leukocytes, UA (test code = 5799-2) Negative Negative Urobilinogen, UA (test code = 03667-3) 0.2 0.2-1.0 RBC, UA (test code = 48742-3) 51 See_Comment [Automated message] The system which [...] Occasional Squam Epithel, UA (test code = 79122-0) See_Comment [Automated message] The system which generated this result transmitted reference range: /HPF. The reference range was not used to interpret this result as normal/abnormal. Specimen Source (test code = 2795) LYNDSAY (test code = LYNDSAY) Fish Hatchery Inspector ID - [auto]Fish Hatchery Inspector ID - tech Lab Interpretation (test code = 83797-1) [facility] Reflex [facility] Culture 2023-03-30 08:43:51* Test Item Value Reference Range Interpretation Comme nts Color, UA (test code = 5778-6) Yellow Clarity, UA (test code = 5767-9) Clear Specific [place], UA (test code = 5811-5) 1.033 1.001-1.035 pH, UA (test code = 5803-2) 6.0 5.0-8.0 Protein, UA (test code = 90731-3) 30 mg/dL Negative A Glucose, UA (test code = 365) Negative Negative Ketones, UA (test code = 2514-8) Negative Negative Bilirubin, UA (test code = 00780-8) Negative Negative Blood, UA (test code = 72995-5) Small Negative A Nitrite, UA (test code = 5802-4) Negative Negative Leukocytes, UA (test code = 5799-2) Negative Negative Urobilinogen, UA (test code = 07168-3) 0.2 0.2-1.0 RBC, UA (test code = 98410-3) 51 See_Comment [Automated message] The system which [...] Occasional Squam Epithel, UA (test code = 15248-3) See_Comment [Automated message] The system which generated this result transmitted reference range: /HPF. The reference range was not used to interpret this result as normal/abnormal. Specimen Source (test code = 2795) LYNDSAY (test code = LYNDSAY) Fish Hatchery Inspector ID - [auto]Fish Hatchery Inspector ID - tech Lab Interpretation (test code = 14831-5) [facility] Reflex [facility] Culture 2023-03-30 08:43:51* Test Item Value Reference Range Interpretation Comme nts Color, UA (test code = 5778-6) Yellow Clarity, UA (test code = 5767-9) Clear Specific [place], UA (test code = 5811-5) 1.033 1.001-1.035 pH, UA (test code = 5803-2) 6.0 5.0-8.0 Protein, UA (test code = 00170-5) 30 mg/dL Negative A Glucose, UA (test code = 365) Negative Negative Ketones, UA (test code = 2514-8) Negative Negative Bilirubin, UA (test code = 79436-1) Negative Negative Blood, UA (test code = 86163-0) Small Negative A Nitrite, UA (test code = 5802-4) Negative Negative Leukocytes, UA (test code = 5799-2) Negative Negative Urobilinogen, UA (test code = 98156-3) 0.2 0.2-1.0 RBC, UA (test code = 82281-7) 51 See_Comment [Automated message] The system which [...] Occasional Squam Epithel, UA (test code = 12825-2) See_Comment [Automated message] The system which generated this result transmitted reference range: /HPF. The reference range was not used to interpret this result as normal/abnormal. Specimen Source (test code = 2795) LYNDSAY (test code = LYNDSAY) Fish Hatchery Inspector ID - [auto]Fish Hatchery Inspector ID - tech Lab Interpretation (test code = 46063-3) [facility] Reflex [facility] Culture 2023-03-30 08:43:51* Test Item Value Reference Range Interpretation Comme nts Color, UA (test code = 5778-6) Yellow Clarity, UA (test code = 5767-9) Clear Specific [place], UA (test code = 5811-5) 1.033 1.001-1.035 pH, UA (test code = 5803-2) 6.0 5.0-8.0 Protein, UA (test code = 63726-8) 30 mg/dL Negative A Glucose, UA (test code = 365) Negative Negative Ketones, UA (test code = 2514-8) Negative Negative Bilirubin, UA (test code = 53998-3) Negative Negative Blood, UA (test code = 55102-7) Small Negative A Nitrite, UA (test code = 5802-4) Negative Negative Leukocytes, UA (test code = 5799-2) Negative Negative Urobilinogen, UA (test code = 62297-6) 0.2 0.2-1.0 RBC, UA (test code = 44974-6) 51 See_Comment [Automated message] The system which [...] Occasional Squam Epithel, UA (test code = 75212-0) See_Comment [Automated message] The system which generated this result transmitted reference range: /HPF. The reference range was not used to interpret this result as normal/abnormal. Specimen Source (test code = 2795) LYNDSAY (test code = LYNDSAY) Fish Hatchery Inspector ID - [auto]Fish Hatchery Inspector ID - tech Lab Interpretation (test code = 11467-5) [facility] Reflex [facility] Culture 2023-03-30 08:43:51* Test Item Value Reference Range Interpretation Comme nts Color, UA (test code = 5778-6) Yellow Clarity, UA (test code = 5767-9) Clear Specific [place], UA (test code = 5811-5) 1.033 1.001-1.035 pH, UA (test code = 5803-2) 6.0 5.0-8.0 Protein, UA (test code = 11486-6) 30 mg/dL Negative A Glucose, UA (test code = 365) Negative Negative Ketones, UA (test code = 2514-8) Negative Negative Bilirubin, UA (test code = 32385-4) Negative Negative Blood, UA (test code = 15557-7) Small Negative A Nitrite, UA (test code = 5802-4) Negative Negative Leukocytes, UA (test code = 5799-2) Negative Negative Urobilinogen, UA (test code = 60394-2) 0.2 0.2-1.0 RBC, UA (test code = 82441-6) 51 See_Comment [Automated message] The system which [...] Occasional Squam Epithel, UA (test code = 68643-3) See_Comment [Automated message] The system which generated this result transmitted reference range: /HPF. The reference range was not used to interpret this result as normal/abnormal. Specimen Source (test code = 2795) LYNDSAY (test code = LYNDSAY) Fish Hatchery Inspector ID - [auto]Fish Hatchery Inspector ID - tech Lab Interpretation (test code = 25235-2) [facility] Reflex [facility] Culture 2023-03-30 08:43:51* Test Item Value Reference Range Interpretation Comme nts Color, UA (test code = 5778-6) Yellow Clarity, UA (test code = 5767-9) Clear Specific [place], UA (test code = 5811-5) 1.033 1.001-1.035 pH, UA (test code = 5803-2) 6.0 5.0-8.0 Protein, UA (test code = 90146-8) 30 mg/dL Negative A Glucose, UA (test code = 365) Negative Negative Ketones, UA (test code = 2514-8) Negative Negative Bilirubin, UA (test code = 54763-2) Negative Negative Blood, UA (test code = 87301-6) Small Negative A Nitrite, UA (test code = 5802-4) Negative Negative Leukocytes, UA (test code = 5799-2) Negative Negative Urobilinogen, UA (test code = 00400-6) 0.2 0.2-1.0 RBC, UA (test code = 96934-8) 51 See_Comment [Automated message] The system which [...] Occasional Squam Epithel, UA (test code = 74163-8) See_Comment [Automated message] The system which generated this result transmitted reference range: /HPF. The reference range was not used to interpret this result as normal/abnormal. Specimen Source (test code = 2795) LYNDSAY (test code = LYNDSAY) Fish Hatchery Inspector ID - [auto]Fish Hatchery Inspector ID - tech Lab Interpretation (test code = 29288-5) [facility] Reflex [facility] Culture 2023-03-30 08:43:51* Test Item Value Reference Range Interpretation Comme nts Color, UA (test code = 5778-6) Yellow Clarity, UA (test code = 5767-9) Clear Specific [place], UA (test code = 5811-5) 1.033 1.001-1.035 pH, UA (test code = 5803-2) 6.0 5.0-8.0 Protein, UA (test code = 91021-4) 30 mg/dL Negative A Glucose, UA (test code = 365) Negative Negative Ketones, UA (test code = 2514-8) Negative Negative Bilirubin, UA (test code = 41453-5) Negative Negative Blood, UA (test code = 82284-2) Small Negative A Nitrite, UA (test code = 5802-4) Negative Negative Leukocytes, UA (test code = 5799-2) Negative Negative Urobilinogen, UA (test code = 21757-1) 0.2 0.2-1.0 RBC, UA (test code = 62450-0) 51 See_Comment [Automated message] The system which [...] Occasional Squam Epithel, UA (test code = 68251-7) See_Comment [Automated message] The system which generated this result transmitted reference range: /HPF. The reference range was not used to interpret this result as normal/abnormal. Specimen Source (test code = 2795) LYNDSAY (test code = LYNDSAY) Fish Hatchery Inspector ID - [auto]Fish Hatchery Inspector ID - tech Lab Interpretation (test code = 49018-0) [facility] Reflex to Culture 2023-03-30 08:43:51* Test Item Value Reference Range Interpretation Comme nts Color, UA (test code = 5778-6) Yellow Clarity, UA (test code = 5767-9) Clear Specific [place], UA (test code = 5811-5) 1.033 1.001-1.035 pH, UA (test code = 5803-2) 6.0 5.0-8.0 Protein, UA (test code = 48293-0) 30 mg/dL Negative A Glucose, UA (test code = 365) Negative Negative Ketones, UA (test code = 2514-8) Negative Negative Bilirubin, UA (test code = 19811-4) Negative Negative Blood, UA (test code = 14956-3) Small Negative A Nitrite, UA (test code = 5802-4) Negative Negative Leukocytes, UA (test code = 5799-2) Negative Negative Urobilinogen, UA (test code = 00384-0) 0.2 0.2-1.0 RBC, UA (test code = 29040-3) 51 See_Comment [Automated message] The system which [...] Occasional Squam Epithel, UA (test code = 51774-2) See_Comment [Automated message] The system which generated this result transmitted reference range: /HPF. The reference range was not used to interpret this result as normal/abnormal. Specimen Source (test code = 2795) LYNDSAY (test code = LYNDSAY) Fish Hatchery Inspector ID - [auto]Fish Hatchery Inspector ID - tech Lab Interpretation (test code = 53961-6) [facility] Reflex to Culture 2023-03-30 08:43:51* Test Item Value Reference Range Interpretation Comme nts Color, UA (test code = 5778-6) Yellow Clarity, UA (test code = 5767-9) Clear Specific [place], UA (test code = 5811-5) 1.033 1.001-1.035 pH, UA (test code = 5803-2) 6.0 5.0-8.0 Protein, UA (test code = 32736-5) 30 mg/dL Negative A Glucose, UA (test code = 365) Negative Negative Ketones, UA (test code = 2514-8) Negative Negative Bilirubin, UA (test code = 23604-9) Negative Negative Blood, UA (test code = 91246-7) Small Negative A Nitrite, UA (test code = 5802-4) Negative Negative Leukocytes, UA (test code = 5799-2) Negative Negative Urobilinogen, UA (test code = 43307-1) 0.2 0.2-1.0 RBC, UA (test code = 43797-7) 51 See_Comment [Automated message] The system which [...] Occasional Squam Epithel, UA (test code = 41865-6) See_Comment [Automated message] The system which generated this result transmitted reference range: /HPF. The reference range was not used to interpret this result as normal/abnormal. Specimen Source (test code = 2795) LYNDSAY (test code = LYNDSAY) Fish Hatchery Inspector ID - [auto]Fish Hatchery Inspector ID - tech Lab Interpretation (test code = 74426-7) [facility] Ref[facility] Culture 2023-03-30 08:43:51* Test Item Value Reference Range Interpretation Comme nts Color, UA (test code = 5778-6) Yellow Clarity, UA (test code = 5767-9) Clear Specific [place], UA (test code = 5811-5) 1.033 1.001-1.035 pH, UA (test code = 5803-2) 6.0 5.0-8.0 Protein, UA (test code = 49038-9) 30 mg/dL Negative A Glucose, UA (test code = 365) Negative Negative Ketones, UA (test code = 2514-8) Negative Negative Bilirubin, UA (test code = 42587-3) Negative Negative Blood, UA (test code = 64338-4) Small Negative A Nitrite, UA (test code = 5802-4) Negative Negative Leukocytes, UA (test code = 5799-2) Negative Negative Urobilinogen, UA (test code = 27356-1) 0.2 0.2-1.0 RBC, UA (test code = 18138-7) 51 See_Comment [Automated message] The system which [...] Occasional Squam Epithel, UA (test code = 33467-1) See_Comment [Automated message] The system which generated this result transmitted reference range: /HPF. The reference range was not used to interpret this result as normal/abnormal. Specimen Source (test code = 2795) LYNDSAY (test code = LYNDSAY) Fish Hatchery Inspector ID - [auto]Fish Hatchery Inspector ID - tech Lab Interpretation (test code = 32315-3) [facility] Reflex [facility] Culture 2023-03-30 08:43:51* Test Item Value Reference Range Interpretation Comme nts Color, UA (test code = 5778-6) Yellow Clarity, UA (test code = 5767-9) Clear Specific [place], UA (test code = 5811-5) 1.033 1.001-1.035 pH, UA (test code = 5803-2) 6.0 5.0-8.0 Protein, UA (test code = 07829-4) 30 mg/dL Negative A Glucose, UA (test code = 365) Negative Negative Ketones, UA (test code = 2514-8) Negative Negative Bilirubin, UA (test code = 10192-2) Negative Negative Blood, UA (test code = 52707-6) Small Negative A Nitrite, UA (test code = 5802-4) Negative Negative Leukocytes, UA (test code = 5799-2) Negative Negative Urobilinogen, UA (test code = 50156-4) 0.2 0.2-1.0 RBC, UA (test code = 79251-7) 51 See_Comment [Automated message] The system which [...] Occasional Squam Epithel, UA (test code = 78225-7) See_Comment [Automated message] The system which generated this result transmitted reference range: /HPF. The reference range was not used to interpret this result as normal/abnormal. Specimen Source (test code = 2795) LYNDSAY (test code = LYNDSAY) Fish Hatchery Inspector ID - [auto]Fish Hatchery Inspector ID - tech Lab Interpretation (test code = 41855-0) [facility] Reflex to Culture 2023-03-30 08:43:51* Test Item Value Reference Range Interpretation Comme nts Color, UA (test code = 5778-6) Yellow Clarity, UA (test code = 5767-9) Clear Specific [place], UA (test code = 5811-5) 1.033 1.001-1.035 pH, UA (test code = 5803-2) 6.0 5.0-8.0 Protein, UA (test code = 58336-1) 30 mg/dL Negative A Glucose, UA (test code = 365) Negative Negative Ketones, UA (test code = 2514-8) Negative Negative Bilirubin, UA (test code = 83174-1) Negative Negative Blood, UA (test code = 72538-0) Small Negative A Nitrite, UA (test code = 5802-4) Negative Negative Leukocytes, UA (test code = 5799-2) Negative Negative Urobilinogen, UA (test code = 16584-7) 0.2 0.2-1.0 RBC, UA (test code = 19902-5) 51 See_Comment [Automated message] The system which [...] Occasional Squam Epithel, UA (test code = 84693-2) See_Comment [Automated message] The system which generated this result transmitted reference range: /HPF. The reference range was not used to interpret this result as normal/abnormal. Specimen Source (test code = 2795) LYNDSAY (test code = LYNDSAY) Fish Hatchery Inspector ID - [auto]Fish Hatchery Inspector ID - tech Lab Interpretation (test code = 72026-8) [facility] Reflex [facility] Culture 2023-03-30 08:43:51* Test Item Value Reference Range Interpretation Comme nts Color, UA (test code = 5778-6) Yellow Clarity, UA (test code = 5767-9) Clear Specific [place], UA (test code = 5811-5) 1.033 1.001-1.035 pH, UA (test code = 5803-2) 6.0 5.0-8.0 Protein, UA (test code = 50622-8) 30 mg/dL Negative A Glucose, UA (test code = 365) Negative Negative Ketones, UA (test code = 2514-8) Negative Negative Bilirubin, UA (test code = 92346-5) Negative Negative Blood, UA (test code = 09435-9) Small Negative A Nitrite, UA (test code = 5802-4) Negative Negative Leukocytes, UA (test code = 5799-2) Negative Negative Urobilinogen, UA (test code = 33705-9) 0.2 0.2-1.0 RBC, UA (test code = 57467-4) 51 See_Comment [Automated message] The system which [...] Occasional Squam Epithel, UA (test code = 74036-0) See_Comment [Automated message] The system which generated this result transmitted reference range: /HPF. The reference range was not used to interpret this result as normal/abnormal. Specimen Source (test code = 2795) LYNDSAY (test code = LYNDSAY) Fish Hatchery Inspector ID - [auto]Fish Hatchery Inspector ID - tech Lab Interpretation (test code = 89852-8) [facility] Culture 2023-03-30 08:43:51* Test Item Value Reference Range Interpretation Comme nts Color, UA (test code = 5778-6) Yellow Clarity, UA (test code = 5767-9) Clear Specific [place], UA (test code = 5811-5) 1.033 1.001-1.035 pH, UA (test code = 5803-2) 6.0 5.0-8.0 Protein, UA (test code = 30252-6) 30 mg/dL Negative A Glucose, UA (test code = 365) Negative Negative Ketones, UA (test code = 2514-8) Negative Negative Bilirubin, UA (test code = 50337-0) Negative Negative Blood, UA (test code = 81312-8) Small Negative A Nitrite, UA (test code = 5802-4) Negative Negative Leukocytes, UA (test code = 5799-2) Negative Negative Urobilinogen, UA (test code = 33207-7) 0.2 0.2-1.0 RBC, UA (test code = 14489-9) 51 See_Comment [Automated message] The system which [...] Occasional Squam Epithel, UA (test code = 02323-2) See_Comment [Automated message] The system which generated this result transmitted reference range: /HPF. The reference range was not used to interpret this result as normal/abnormal. Specimen Source (test code = 2795) LYNDSAY (test code = LYNDSAY) Fish Hatchery Inspector ID - [auto]Fish Hatchery Inspector ID - tech Lab Interpretation (test code = 16112-9) [facility] Culture 2023-03-30 08:43:51* Test Item Value Reference Range Interpretation Comme nts Color, UA (test code = 5778-6) Yellow Clarity, UA (test code = 5767-9) Clear Specific [place], UA (test code = 5811-5) 1.033 1.001-1.035 pH, UA (test code = 5803-2) 6.0 5.0-8.0 Protein, UA (test code = 16794-4) 30 mg/dL Negative A Glucose, UA (test code = 365) Negative Negative Ketones, UA (test code = 2514-8) Negative Negative Bilirubin, UA (test code = 11913-9) Negative Negative Blood, UA (test code = 53800-7) Small Negative A Nitrite, UA (test code = 5802-4) Negative Negative Leukocytes, UA (test code = 5799-2) Negative Negative Urobilinogen, UA (test code = 42895-2) 0.2 0.2-1.0 RBC, UA (test code = 33919-1) 51 See_Comment [Automated message] The system which [...] Occasional Squam Epithel, UA (test code = 36330-0) See_Comment [Automated message] The system which generated this result transmitted reference range: /HPF. The reference range was not used to interpret this result as normal/abnormal. Specimen Source (test code = 2795) LYNDSAY (test code = LYNDSAY) Fish Hatchery Inspector ID - [auto]Fish Hatchery Inspector ID - tech Lab Interpretation (test code = 75456-8) [facility] Reflex [facility] Culture 2023-03-30 08:43:51* Test Item Value Reference Range Interpretation Comme nts Color, UA (test code = 5778-6) Yellow Clarity, UA (test code = 5767-9) Clear Specific [place], UA (test code = 5811-5) 1.033 1.001-1.035 pH, UA (test code = 5803-2) 6.0 5.0-8.0 Protein, UA (test code = 64865-1) 30 mg/dL Negative A Glucose, UA (test code = 365) Negative Negative Ketones, UA (test code = 2514-8) Negative Negative Bilirubin, UA (test code = 92431-1) Negative Negative Blood, UA (test code = 05099-5) Small Negative A Nitrite, UA (test code = 5802-4) Negative Negative Leukocytes, UA (test code = 5799-2) Negative Negative Urobilinogen, UA (test code = 97498-3) 0.2 0.2-1.0 RBC, UA (test code = 28878-6) 51 See_Comment [Automated message] The system which [...] Occasional Squam Epithel, UA (test code = 48637-6) See_Comment [Automated message] The system which generated this result transmitted reference range: /HPF. The reference range was not used to interpret this result as normal/abnormal. Specimen Source (test code = 2795) LYNDSAY (test code = LYNDSAY) Fish Hatchery Inspector ID - [auto]Fish Hatchery Inspector ID - tech Lab Interpretation (test code = 33301-3) [facility] 2023-[facility]-30 08:43:51* Test Item Value Reference Range Interpretation Comme nts Color, UA (test code = 5778-6) Yellow Clarity, UA (test code = 5767-9) Clear Specific [place], UA (test code = 5811-5) 1.033 1.001-1.035 pH, UA (test code = 5803-2) 6.0 5.0-8.0 Protein, UA (test code = 21508-8) 30 mg/dL Negative A Glucose, UA (test code = 365) Negative Negative Ketones, UA (test code = 2514-8) Negative Negative Bilirubin, UA (test code = 30975-8) Negative Negative Blood, UA (test code = 40785-7) Small Negative A Nitrite, UA (test code = 5802-4) Negative Negative Leukocytes, UA (test code = 5799-2) Negative Negative Urobilinogen, UA (test code = 09209-0) 0.2 0.2-1.0 RBC, UA (test code = 77663-5) 51 See_Comment [Automated message] The system which [...] Occasional Squam Epithel, UA (test code = 42490-9) See_Comment [Automated message] The system which generated this result transmitted reference range: /HPF. The reference range was not used to interpret this result as normal/abnormal. Specimen Source (test code = 2795) LYNDSAY (test code = LYNDSAY) Fish Hatchery Inspector ID - [auto]Fish Hatchery Inspector ID - tech Lab Interpretation (test code = 45616-5) [facility] Culture 2023-03-30 08:43:51* Test Item Value Reference Range Interpretation Comme nts Color, UA (test code = 5778-6) Yellow Clarity, UA (test code = 5767-9) Clear Specific [place], UA (test code = 5811-5) 1.033 1.001-1.035 pH, UA (test code = 5803-2) 6.0 5.0-8.0 Protein, UA (test code = 72841-2) 30 mg/dL Negative A Glucose, UA (test code = 365) Negative Negative Ketones, UA (test code = 2514-8) Negative Negative Bilirubin, UA (test code = 23376-0) Negative Negative Blood, UA (test code = 87434-1) Small Negative A Nitrite, UA (test code = 5802-4) Negative Negative Leukocytes, UA (test code = 5799-2) Negative Negative Urobilinogen, UA (test code = 06692-2) 0.2 0.2-1.0 RBC, UA (test code = 81196-6) 51 See_Comment [Automated message] The system which [...] Occasional Squam Epithel, UA (test code = 48362-3) See_Comment [Automated message] The system which generated this result transmitted reference range: /HPF. The reference range was not used to interpret this result as normal/abnormal. Specimen Source (test code = 2795) LYNDSAY (test code = LYNDSAY) Fish Hatchery Inspector ID - [auto]Fish Hatchery Inspector ID - tech Lab Interpretation (test code = 97063-1) [facility] Reflex [facility] Culture 2023-03-30 08:43:51* Test Item Value Reference Range Interpretation Comme nts Color, UA (test code = 5778-6) Yellow Clarity, UA (test code = 5767-9) Clear Specific [place], UA (test code = 5811-5) 1.033 1.001-1.035 pH, UA (test code = 5803-2) 6.0 5.0-8.0 Protein, UA (test code = 71405-4) 30 mg/dL Negative A Glucose, UA (test code = 365) Negative Negative Ketones, UA (test code = 2514-8) Negative Negative Bilirubin, UA (test code = 44738-8) Negative Negative Blood, UA (test code = 94153-2) Small Negative A Nitrite, UA (test code = 5802-4) Negative Negative Leukocytes, UA (test code = 5799-2) Negative Negative Urobilinogen, UA (test code = 44336-2) 0.2 0.2-1.0 RBC, UA (test code = 33503-4) 51 See_Comment [Automated message] The system which [...] Occasional Squam Epithel, UA (test code = 67420-6) See_Comment [Automated message] The system which generated this result transmitted reference range: /HPF. The reference range was not used to interpret this result as normal/abnormal. Specimen Source (test code = 2795) LYNDSAY (test code = LYNDSAY) Fish Hatchery Inspector ID - [auto]Fish Hatchery Inspector ID - tech Lab Interpretation (test code = 81844-3) [facility] Reflex [facility] Culture 2023-03-30 08:43:51* Test Item Value Reference Range Interpretation Comme nts Color, UA (test code = 5778-6) Yellow Clarity, UA (test code = 5767-9) Clear Specific [place], UA (test code = 5811-5) 1.033 1.001-1.035 pH, UA (test code = 5803-2) 6.0 5.0-8.0 Protein, UA (test code = 06074-9) 30 mg/dL Negative A Glucose, UA (test code = 365) Negative Negative Ketones, UA (test code = 2514-8) Negative Negative Bilirubin, UA (test code = 19090-5) Negative Negative Blood, UA (test code = 55431-4) Small Negative A Nitrite, UA (test code = 5802-4) Negative Negative Leukocytes, UA (test code = 5799-2) Negative Negative Urobilinogen, UA (test code = 07554-4) 0.2 0.2-1.0 RBC, UA (test code = 59606-7) 51 See_Comment [Automated message] The system which [...] Occasional Squam Epithel, UA (test code = 83567-4) See_Comment [Automated message] The system which generated this result transmitted reference range: /HPF. The reference range was not used to interpret this result as normal/abnormal. Specimen Source (test code = 2795) LYNDSAY (test code = LYNDSAY) Fish Hatchery Inspector ID - [auto]Fish Hatchery Inspector ID - tech Lab Interpretation (test code = 50345-5) [facility] Reflex [facility] Culture 2023-03-30 08:43:51* Test Item Value Reference Range Interpretation Comme nts Color, UA (test code = 5778-6) Yellow Clarity, UA (test code = 5767-9) Clear Specific [place], UA (test code = 5811-5) 1.033 1.001-1.035 pH, UA (test code = 5803-2) 6.0 5.0-8.0 Protein, UA (test code = 21246-3) 30 mg/dL Negative A Glucose, UA (test code = 365) Negative Negative Ketones, UA (test code = 2514-8) Negative Negative Bilirubin, UA (test code = 64583-7) Negative Negative Blood, UA (test code = 18832-3) Small Negative A Nitrite, UA (test code = 5802-4) Negative Negative Leukocytes, UA (test code = 5799-2) Negative Negative Urobilinogen, UA (test code = 04731-9) 0.2 0.2-1.0 RBC, UA (test code = 78195-2) 51 See_Comment [Automated message] The system which [...] Occasional Squam Epithel, UA (test code = 65259-9) See_Comment [Automated message] The system which generated this result transmitted reference range: /HPF. The reference range was not used to interpret this result as normal/abnormal. Specimen Source (test code = 2795) LYNDSAY (test code = LYNDSAY) Fish Hatchery Inspector ID - [auto]Fish Hatchery Inspector ID - tech Lab Interpretation (test code = 01962-9) [facility] Reflex [facility] Culture 2023-03-30 08:43:51* Test Item Value Reference Range Interpretation Comme nts Color, UA (test code = 5778-6) Yellow Clarity, UA (test code = 5767-9) Clear Specific [place], UA (test code = 5811-5) 1.033 1.001-1.035 pH, UA (test code = 5803-2) 6.0 5.0-8.0 Protein, UA (test code = 12184-0) 30 mg/dL Negative A Glucose, UA (test code = 365) Negative Negative Ketones, UA (test code = 2514-8) Negative Negative Bilirubin, UA (test code = 64060-7) Negative Negative Blood, UA (test code = 01579-9) Small Negative A Nitrite, UA (test code = 5802-4) Negative Negative Leukocytes, UA (test code = 5799-2) Negative Negative Urobilinogen, UA (test code = 28101-6) 0.2 0.2-1.0 RBC, UA (test code = 80976-9) 51 See_Comment [Automated message] The system which [...] Occasional Squam Epithel, UA (test code = 88885-5) See_Comment [Automated message] The system which generated this result transmitted reference range: /HPF. The reference range was not used to interpret this result as normal/abnormal. Specimen Source (test code = 2795) LYNDSAY (test code = LYNDSAY) Fish Hatchery Inspector ID - [auto]Fish Hatchery Inspector ID - tech Lab Interpretation (test code = 18445-8) [facility]normal [facility] Reflex [facility] Culture 2023-03-30 08:43:51* Test Item Value Reference Range Interpretation Comme nts Color, UA (test code = 5778-6) Yellow Clarity, UA (test code = 5767-9) Clear Specific [place], UA (test code = 5811-5) 1.033 1.001-1.035 pH, UA (test code = 5803-2) 6.0 5.0-8.0 Protein, UA (test code = 80246-2) 30 mg/dL Negative A Glucose, UA (test code = 365) Negative Negative Ketones, UA (test code = 2514-8) Negative Negative Bilirubin, UA (test code = 37215-5) Negative Negative Blood, UA (test code = 51086-3) Small Negative A Nitrite, UA (test code = 5802-4) Negative Negative Leukocytes, UA (test code = 5799-2) Negative Negative Urobilinogen, UA (test code = 02843-7) 0.2 0.2-1.0 RBC, UA (test code = 68276-3) 51 See_Comment [Automated message] The system which [...] Occasional Squam Epithel, UA (test code = 81034-6) See_Comment [Automated message] The system which generated this result transmitted reference range: /HPF. The reference range was not used to interpret this result as normal/abnormal. Specimen Source (test code = 2795) LYNDSAY (test code = LYNDSAY) Fish Hatchery Inspector ID - [auto]Fish Hatchery Inspector ID - tech Lab Interpretation (test code = 10875-0) [facility] Reflex [facility] Culture 2023-03-30 08:43:51* Test Item Value Reference Range Interpretation Comme nts Color, UA (test code = 5778-6) Yellow Clarity, UA (test code = 5767-9) Clear Specific [place], UA (test code = 5811-5) 1.033 1.001-1.035 pH, UA (test code = 5803-2) 6.0 5.0-8.0 Protein, UA (test code = 53351-4) 30 mg/dL Negative A Glucose, UA (test code = 365) Negative Negative Ketones, UA (test code = 2514-8) Negative Negative Bilirubin, UA (test code = 24514-0) Negative Negative Blood, UA (test code = 65619-5) Small Negative A Nitrite, UA (test code = 5802-4) Negative Negative Leukocytes, UA (test code = 5799-2) Negative Negative Urobilinogen, UA (test code = 64586-1) 0.2 0.2-1.0 RBC, UA (test code = 94371-5) 51 See_Comment [Automated message] The system which [...] Occasional Squam Epithel, UA (test code = 95341-6) See_Comment [Automated message] The system which generated this result transmitted reference range: /HPF. The reference range was not used to interpret this result as normal/abnormal. Specimen Source (test code = 2795) LYNDSAY (test code = LYNDSAY) Fish Hatchery Inspector ID - [auto]Fish Hatchery Inspector ID - tech Lab Interpretation (test code = 80972-5) [facility] UR[facility] [id number] 08:43:51 * Test Item Value Reference Range [...] < /HPF SOURCE(BEAKER) (test code = 2795) Fish Hatchery Inspector ID - [auto]Fish Hatchery Inspector ID - techCOMPREHENSIVE METABOLIC [id number] 04:37:29* Test Item Value Reference Range Interpretation [...] GFR is not applicable for dialysis patients Fish Hatchery Inspector ID - MATT BPT/[id number] 04:30:17* Test Item Value Reference Range Interpretation Comme nts PROTIME (BEAKER) (test code = 759) 13.8 seconds 11.9-14.2 INR (BEAKER) (test code = 370) 1.13 See_Comment [Automated [employer]] The system which generated this result transmitted [...] code = 413) 0 /100 WBC 0-0 [id number] 00:00:00Ordered by an unspecified provider.[facility]MMIOIGI4420-57-47 00:00:00Ordered by an unspecified provider. [facility]-YCGCONX9446-56-76 00:00:00Ordered by an unspecified provider.[facility]2023-[facility]-25 17:14:06* Test Item Value Reference Range Interpretation Comme nts MAGNESIUM (test code = 6583951701) 1.9 mg/dL 1.7-2.4 Lab Interpretation (test cod e = 34878-6) Normal [facility] (08812)2022-12-11 15:16:25* Test Item Value Reference Range Interpretation Comme nts NA (test code = 1102856905) 139 mmol/L 135-145 K (test code = 0398583691) 3.5 mmol/L 3.5-5.0 CL (test code = 7620152919) 107 mmol/L 98-108 CO2 TOTAL (test code = 8926125162) 24 mmol/L 23-31 AGAP (test code = 9096590827) 8 2-16 BUN (test code = 2137836181) 9 mg/dL 7-23 GLUCOSE (test code = 0654698037) 129 mg/dL 70-110 H CREATININE (test code = 1466716739) 0.68 mg/dL 0.50-1.04 TOTAL BILI (test code = 8585525886) 0.5 mg/dL 0.1-1.1 CALCIUM (test code = 6651460649) 8.9 mg/dL 8.6-10.6 T PROTEIN (test code = 8710011289) 6.3 g/dL 6.3-8.2 ALBUMIN (test code = 7693877062) 3.8 g/dL 3.5-5.0 ALK PHOS (test code = 5149830946) 87 U/L 34-122 ALTv (test code = 1742-6) 24 U/L 5-35 AST(SGOT) (test code = 4284830896) 21 U/L 13-40 eGFR (test code = 4707185028) 91.6 mL/min/1.73m2 LYNDSAY (test code = LYNDSAY) [...] imaging tests). Lab Interpretation (test code = 69182-7) Abnormal [facility] CenterTROPONIN [id number] 15:10:45* Test Item Value Reference Range Interpretation Comme nts TROPONIN I (test code = 5117856952) 0.015 ng/mL <=0.034 LYNDSAY (test code = [...] of biotin. Lab Interpretation (test code = 63287-2) Normal [facility] CenterN[facility]MINAL ZQF-CRS2008-07-25 15:07:48* Test Item Value Reference Range Interpretation Comme nts NT-proBNP (test code = 4409826128) 1460 pg/mL <=125 H LYNDSAY (test code = LYNDSAY) Biotin has been reported to cause a negative bias, interpret results relative to patient's use of biotin. Lab Interpretation (test code = 29227-7) Abnormal [facility] CenterD-KUJMD9231-42-06 14:45:24* Test Item Value Reference Range Interpretation Comments D-DIMER (test code = 2951732301) 0.99 See_Comment H [Automated message] The system [...] a diagnosis. Lab Interpretation (test code = 29274-3) Abnormal [facility] WITH [id number] 14:14:48* Test Item Value Reference Range Interpretation Comme nts WBC (test code = 6690-2) 7.86 See_Comment [Automated [employer]] The system which generated this result transmitted reference range: 4.30 - 11.10 10*3/?L. The reference range was not used to interpret this result as normal/abnormal. RBC (test code = 789-8) 5.13 See_Comment [Automated [employer]] The system which generated this result transmitted [...] g/dL 31.6-35.1 L RDW-SD (test code = 56861-8) 47.8 fL 39.0-49.9 RDW-CV (test code = 788-0) 16.9 % 12.0-15.5 H PLT (test code = 777-3) 507 See_Comment H [Automated BONDS.COMa ge] The system which generated this result transmitted reference range: 166 - 358 10*3/?L. The reference range was not used to interpret this result as normal/abnormal. MPV (test code = 33853-2) 8.2 fL 9.5-12.9 L NRBC/100 WBC (test code = 1409312747) 0.0 See_Comment [Automated me ssage] The system which generated this result transmitted reference range: 0.0 - 10.0 /100 WBCs. The reference range was not used to interpret this result as normal/abnormal. NRBC x10^3 (test code = 4804539786) See_Comment [Automated messa ge] The system which generated this result transmitted reference range: 10*3/?L. The reference range was not used to interpret this result as normal/abnormal. GRAN MAT (NEUT) % (test code = 770-8) 64.5 % IMM GRAN % (test code = 7867749221) 0.30 % LYMPH % (test code = 736-9) 25.6 % MONO % (test code = 5905-5) 7.5 % EOS % (test code = 713-8) 1.0 % BASO % (test code = 706-2) 1.1 % GRAN MAT x10^3(ANC) (test code = 9158949798) 5.07 10*3/uL 1.88-7.09 IMM GRAN x10^3 (test code = 5735426716) 0.00-0.06 LYMPH x10^3 (test code = 731-0) 2.01 10*3/uL 1.32-3.29 MONO x10^3 (test code = 742-7) 0.59 10*3/uL 0.33-0.92 EOS x10^3 (test code = 711-2) 0.08 10*3/uL 0.03-0.39 BASO x10^3 (test code = 704-7) 0.09 10*3/uL 0.01-0.07 H Lab Interpretation (test code = 55462-4) Abnormal [facility] CenterRPR2023-01-17 13:17:22* Test Item Value Reference Range Interpretation Comme nts RPR SCREEN (TextPower) (test co de = 420) Nonreactive Nonreactive HEMOGLOBIN [id number] 10:39:49* Test Item Value Reference Range Interpretation Comme nts HEMOGLOBIN A1C ELECTROPHORESIS (TextPower) (test code = 3811) 5.8 % See_Comment H [Automated me ssage] The system which generated this result transmitted reference range: <=5.6%. The reference range was not used to interpret this result as normal/abnormal. "The A1c is measured using a [facility]-certified method. HbA1c value equal to or greater than 6.5% as the diagnosis cutoff for diabetes. An HbA1c value of 5.7- 6.4% indicates increased risk for diabetes (prediabetes)."Fish Hatchery Inspector ID - ADM VITAMIN [id number] 22:48:27* Test Item Value Reference Range Interpretation Comme nts VITAMIN B12 (BEAKER) (test c ode = 774) 227 pg/mL 213-816 Fish Hatchery Inspector ID - MARCOTSH/FREE T4 IF [id number] 22:08:28* Test Item Value Reference Range Interpretation Comme nts THYROID STIMULATING HORMONE (BEAKER) (test code = 772) 3.309 uIU/mL 0.350-4.940 Fish Hatchery Inspector ID - JSHIV-1 ANTIGEN WITH HIV-1/2 [id number] 22:08:28* Test Item Value Reference Range Interpretation Comme nts HIV-1 ANTIGEN WITH HIV 1\\T\\2 ANTIBODY (2) (BEAKER) (test code = 2586) Nonreactive Nonreactive Fish Hatchery Inspector ID - JSC-REACTIVE [id number] 21:49:44* Test Item Value Reference Range Interpretation Comme nts C-REACTIVE PROTEIN (BEAKER) (test code = 676) 0.35 mg/dL 0.00-0.50 Fish Hatchery Inspector ID - JSCOMPREHENSIVE METABOLIC [id number] 21:49:43* Test Item Value Reference Range Interpretation [...] GFR is not applicable for dialysis patients Fish Hatchery Inspector ID - JSLIPID [id number] 21:49:43* Test Item Value Reference Range Interpretation [...] Borderline 130-159 High 160-189 Very High >=190 Fish Hatchery Inspector ID - JSCBC W/PLT COUNT & AUTO [id number] 21:34:03* Test Item Value Reference Range Interpretation [...] Interpretation Comme nts Height (test code = 8778111134) in Weight (test code = 2971509767) lbs Systolic BP (test code = 2277067378) mmHg Diastolic BP (test code = 6428772195) mmHg Heart Rate (test code = 0672426597) bpm BSA (test code = 0647460679) 2.00 m2 Ao root diam (test code = 8835452888) 3.20 cm Aortic root (test code = 9437946974) 3.2 cm Ao root annulus (test code = 8358964356) 3.2 cm LVOT diameter (test code = 1309603080) 1.99 cm LVOT area (test code = 5832580286) 3.10 cm2 LVIDD (test code = 2260178306) 5.10 cm Left Ventricular End Diastolic Volume by Teichholz Method (test code = 2149169) 123.0 mL IVS (test code = 5476876846) 1.34 cm Interventricular Septum Diastolic Thickness by 2D (test code = 6169580) 1.34 cm LVPWD (test code = 8471368356) 1.34 cm PW (test code = 5639494407) 1.34 cm 0.6-1.1 EF(Teich) (test code = 8908560056) 41.80 % LVIDS (test code = 7191564869) 4.00 cm Left Ventricular End Systolic Volume by Teichholz Method (test code = 8954965) 71.5 mL FS (test code = 1581987279) 21 % EF - 2D (test code = 42128770) 41.80 % LA size (test code = 1620196688) 4.6 cm Pulmonic Regurgitant End Max Velocity (test code = 0243524506) 119.4 cm/s LAV(MOD-sp4) (test code = 8991692137) 95.00 mL E wave decelartion time (test code = 1198455412) 0.15 s MV stenosis pressure 1/2 time (test code = 3064105712) 45.6 ms MV Peak A Evette (test code = 1969243297) 123.8 cm/s MV Peak E Evette (test code = 6382383766) 109.7 cm/s E/A ratio (test code = 1271121374) ratio MR max PG (test code = 5318176169) 87.20 mm[Hg] MR max evette (test code = 7855908902) 466.90 cm/s Mr max evette (test code = 6450904308) 466.9 m/s MV Prop V (test code = 9380967616) 51.00 cm/s MV E/e' septal (test code = 8837660403) 8.1 cm/s Tapse (test code = 9636383085) 2.21 cm LVOT stroke volume (test code = 0593427200) 49.80 cm3 LVOT peak evette (test code = 3295977640) 89.1 cm/s LVOT mn grad (test code = 3146976175) mmHg AV LVOT peak gradient (test code = 4073064932) mmHg LVOT peak VTI (test code = 4843037387) 16.0 cm LV V1 mean (test code = 0969690564) 64.30 cm/s Aortic valve mean velocity (test code = 0268127073) 133.8 cm/s Ao peak evette (test code = 9453445415) 175.3 cm/s Ao VTI (test code = 1580326849) 32.2 cm AV area by cont VTI (test code = 0079957283) 1.6 cm2 AV area peak evette (test code = 0213038817) 1.6 cm2 Ao max PG (test code = 9796207662) 12.30 mm[Hg] AV peak gradient (test code = 2066883883) mmHg AV valve area (test code = 5269987540) 1.55 cm2 AV mean gradient (test code = 8059310298) mmHg AV regurgitation pressure 1/2 time (test code = 6366805476) 358.5 ms AI dec slope (test code = 2058959717) 364.20 cm/s2 AI max evette (test code = 3332718113) 445.80 cm/s AI max PG (test code = 2183207573) 79.50 mm[Hg] Radiology Study observation (narrative) (test code = 45805-0) LYNDSAY (test code = LYNDSAY) ?Left?Ventricle: Left [...] of Lum[place] ultrasound enhancing agent used. [facility] (AUTOMATED)2022-08-01 10:43:32* Test Item Value Reference Range Interpretation Comme [facility] POCT GLU (test code = 6038363383) 148 mg/dL 70-110 H Lab Interpretation (test cod e = 03133-3) Abnormal [facility] CenterACTIVATED PARTIAL THRMPLAS [id number] 18:39:45* Test Item Value Reference Range Interpretation Comme [facility] APTT Patient (test code = 3173-2) See_Comment [Automated message] The system which generated this result transmitted reference range: 23 - 38 Seconds. The reference range was not used to interpret this result as normal/abnormal. LYNDSAY (test code = LYNDSAY) The [facility] patient population mean normal value for aPTT is 30 seconds. Lab Interpretation (test code = 43752-2) Normal [facility] CenterPROTHROMBIN TIME / [id number] 18:37:42* Test Item Value Reference Range Interpretation [...] the indications. Lab Interpretation (test code = 77599-2) Normal [facility] CenterTROPONIN [id number] 18:32:01* Test Item Value Reference Range Interpretation Comments TROPONIN I (test code = 2201851140) 0.019 ng/mL See_Comment [Automated message] The system [...] of biotin. Lab Interpretation (test code = 32878-0) Normal [facility] CenterN-TERMINAL [id number] 18:29:01* Test Item Value Reference Range Interpretation Comme [facility] NT-proBNP (test code = 0320334681) 2770 pg/mL See_Comment H [Automated message] The system which generated this result transmitted reference range: <=125. The reference range was not used to interpret this result as normal/abnormal. LYNDSAY (test code = LYNDSAY) Biotin has been reported to cause a negative bias, interpret results relative to patient's use of biotin. Lab Interpretation (test code = 62718-5) Abnormal [facility] CenterCOMP. METABOLIC PANEL (35382)2022-07-31 18:21:42* Test Item Value Reference Range Interpretation Comme nts NA (test code = 6731082470) 136 mmol/L 135-145 K (test code = 4295376691) 4.6 mmol/L 3.5-5.0 CL (test code = 2485170972) 104 mmol/L 98-108 CO2 TOTAL (test code = 3613280102) 26 mmol/L 23-31 AGAP (test code = 3158340638) 2-16 BUN (test code = 8932208137) 9 mg/dL 7-23 GLUCOSE (test code = 8850279747) 97 mg/dL 70-110 CREATININE (test code = 7879498933) 0.64 mg/dL 0.50-1.04 TOTAL BILI (test code = 7864623305) 0.5 mg/dL 0.1-1.1 CALCIUM (test code = 6869776635) 8.2 mg/dL 8.6-10.6 L T PROTEIN (test code = 1526572908) 6.5 g/dL 6.3-8.2 ALBUMIN (test code = 1924667731) 3.9 g/dL 3.5-5.0 ALK PHOS (test code = 5035084039) 93 U/L 34-122 ALTv (test code = 1742-6) 18 U/L 5-35 AST(SGOT) (test code = 3097513229) 19 U/L 13-40 eGFR (test code = 8938558135) mL/min/1.73m2 LYNDSAY (test code = LYNDSAY) Association [...] imaging tests). Lab Interpretation (test code = 15019-5) Abnormal [facility] CenterLIPASE2023-01-12 18:21:01* Test Item Value Reference Range Interpretation Comme nts LIPASE (test code = 5601537577) 54 U/L 0-220 Lab Interpretation (test cod e = 23258-7) Normal [facility] WITH [id number] 18:07:00* Test Item Value Reference Range Interpretation Comme nts WBC (test code = 6690-2) See_Comment [Automated [employer]] The system which generated this result transmitted reference range: 4.30 - 11.10 10*3/?L. The reference range was not used to interpret this result as normal/abnormal. RBC (test code = 789-8) See_Comment [Automated [employer]] The system which generated this result [...] g/dL 31.6-35.1 L RDW-SD (test code = 48711-8) 53.1 fL 39.0-49.9 H RDW-CV (test code = 788-0) 17.0 % 12.0-15.5 H PLT (test code = 777-3) See_Comment H [Automated messa ge] The system which generated this result transmitted reference range: 166 - 358 10*3/?L. The reference range was not used to interpret this result as normal/abnormal. MPV (test code = 00051-4) 8.2 fL 9.5-12.9 L NRBC/100 WBC (test code = 7910220052) See_Comment [Automated [employer] ssage] The system which generated this result transmitted reference range: 0.0 - 10.0 /100 WBCs. The reference range was not used to interpret this result as normal/abnormal. NRBC x10^3 (test code = 4733289232) See_Comment [Automated messa ge] The system which generated this result transmitted reference range: 10*3/?L. The reference range was not used to interpret this result as normal/abnormal. GRAN MAT (NEUT) % (test code = 770-8) 64.0 % IMM GRAN % (test code = 0297952198) 0.40 % LYMPH % (test code = 736-9) 27.3 % MONO % (test code = 5905-5) 6.5 % EOS % (test code = 713-8) 1.1 % BASO % (test code = 706-2) 0.7 % GRAN MAT x10^3(ANC) (test code = 9334044996) 5.46 10*3/uL 1.88-7.09 IMM GRAN x10^3 (test code = 6096185852) 0.03 10*3/uL 0.00-0.06 LYMPH x10^3 (test code = 731-0) 2.32 10*3/uL 1.32-3.29 MONO x10^3 (test code = 742-7) 0.55 10*3/uL 0.33-0.92 EOS x10^3 (test code = 711-2) 0.09 10*3/uL 0.03-0.39 BASO x10^3 (test code = 704-7) 0.06 10*3/uL 0.01-0.07 Lab Interpretation (test code = 65258-0) Abnormal [facility] METABOLIC PANEL (NA, K, CL, CO2, GLUCOSE, BUN, CREATININE, CA)2022-05-08 06:37:01* Test Item Value Reference Range Interpretation Comme nts NA (test code = 7367960652) 137 mmol/L 135-145 K (test code = 8760061906) 3.8 mmol/L 3.5-5 CL (test code = 1136481957) 103 mmol/L 98-108 CO2 TOTAL (test code = 0083300447) 24 mmol/L 23-31 AGAP (test code = 8828069618) 2-16 BUN (test code = 7178796147) 13 mg/dL 7-23 GLUCOSE (test code = 5802154143) 90 mg/dL 70-110 CREATININE (test code = 6911099911) 0.69 mg/dL 0.5-1.04 CALCIUM (test code = 4829922433) 8.5 mg/dL 8.6-10.6 L eGFR (test code = 8645860441) mL/min/1.73m2 LYNDSAY (test code = LYNDSAY) Association [...] imaging tests). Lab Interpretation (test code = 88290-1) Abnormal [facility] CenterMAGNESIUM2022-10-20 06:37:01* Test Item Value Reference Range Interpretation Comme nts MAGNESIUM (test code = 0441552246) 2.1 mg/dL 1.7-2.4 Lab Interpretation (test cod e = 95697-5) Normal [facility] CenterPHOSPHORUS2022-10-20 06:37:01* Test Item Value Reference Range Interpretation Comme nts PHOSPHORUS (test code = 9856723147) 4.7 mg/dL 2.5-5 Lab Interpretation (test cod e = 07175-7) Normal [facility] CenterCBC WITH [id number] 06:11:54* Test Item Value Reference Range Interpretation Comme nts WBC (test code = 6690-2) See_Comment [Automated [employer]] The system which generated this result transmitted reference range: 4.30 - 11.10 10*3/?L. The reference range was not used to interpret this result as normal/abnormal. RBC (test code = 789-8) See_Comment [Automated [employer]] The system which generated this result transmitted [...] 32.4 g/dL 31.6-35.1 RDW-SD (test code = 55408-8) 51.0 fL 39-49.9 H RDW-CV (test code = 788-0) 16.5 % 12-15.5 H PLT (test code = 777-3) See_Comment H [Automated messa ge] The system which generated this result transmitted reference range: 166 - 358 10*3/?L. The reference range was not used to interpret this result as normal/abnormal. MPV (test code = 42951-9) 8.3 fL 9.5-12.9 L NRBC/100 WBC (test code = 2434406439) See_Comment [Automated [employer] ssage] The system which generated this result transmitted reference range: 0.0 - 10.0 /100 WBCs. The reference range was not used to interpret this result as normal/abnormal. NRBC x10^3 (test code = 7384402897) See_Comment [Automated messa ge] The system which generated this result transmitted reference range: 10*3/?L. The reference range was not used to interpret this result as normal/abnormal. GRAN MAT (NEUT) % (test code = 770-8) 64.5 % IMM GRAN % (test code = 2085503289) 0.50 % LYMPH % (test code = 736-9) 27.1 % MONO % (test code = 5905-5) 6.6 % EOS % (test code = 713-8) 0.6 % BASO % (test code = 706-2) 0.7 % GRAN MAT x10^3(ANC) (test code = 5336384504) 5.28 10*3/uL 1.88-7.09 IMM GRAN x10^3 (test code = 1989717828) 0.04 10*3/uL 0-0.06 LYMPH x10^3 (test code = 731-0) 2.22 10*3/uL 1.32-3.29 MONO x10^3 (test code = 742-7) 0.54 10*3/uL 0.33-0.92 EOS x10^3 (test code = 711-2) 0.05 10*3/uL 0.03-0.39 BASO x10^3 (test code = 704-7) 0.06 10*3/uL 0.01-0.07 Lab Interpretation (test code = 40078-6) Abnormal [facility] CenterPO[facility]SE (AUT[facility]ATED)2022-05-07 01:18:10* Test Item Value Reference Range Interpretation Comme nts POCT GLU (test code = 9527289829) 120 mg/dL 70-110 H Lab Interpretation (test cod e = 22994-3) Abnormal [facility] CenterType and Screen - ONCE [id number] 05:46:35* Test Item Value Reference Range Interpretation Comme nts ABO & RH (test code = 20) O POSITIVE Performed at [facility] Laboratory Services [facility] Blood [address] Free: [phone] No. [id number] IAT (test code = 1185) Negative Performed at [facility] Laboratory [facility] Blood [address] Free: [phone] No. [id number] [facility] CenterBASIC METABOLIC PANEL (NA, K, CL, CO2, GLUCOSE, BUN, CREATININE, CA)2022-05-05 08:22:57* Test Item Value Reference Range Interpretation Comme nts NA (test code = 4069980044) 136 mmol/L 135-145 K (test code = 1357701437) 4.9 mmol/L 3.5-5 CL (test code = 7251026762) 108 mmol/L 98-108 CO2 TOTAL (test code = 8032274693) 22 mmol/L 23-31 L AGAP (test code = 4738753629) 2-16 BUN (test code = 4918715267) 12 mg/dL 7-23 GLUCOSE (test code = 7555175909) 155 mg/dL 70-110 H CREATININE (test code = 7813636466) 0.63 mg/dL 0.5-1.04 CALCIUM (test code = 8642808934) 8.4 mg/dL 8.6-10.6 L eGFR (test code = 9245899471) mL/min/1.73m2 LYNDSAY (test code = LYNDSAY) Association [...] imaging tests). Lab Interpretation (test code = 14646-3) Abnormal [facility] CenterPROTHROMBIN TIME / [id number] 08:22:37* Test Item Value Reference Range Interpretation Comme [facility] PROTIME PATIENT (test code = 5964-2) See_Comment [[employer]] The system which generated this result transmitted reference range: 10.1 - 12.6 Seconds. The reference range was not used to interpret this result as normal/abnormal. INR (test code = 6301-6) Normal INR <1.1; Warfarin Therapeutic range 2.0 to 3.0 or 2.5 to 3.5, depending upon the indications. Lab Interpretation (test code = 64769-0) Normal [facility] CenteraPTT2022-10-17 08:22:37* Test Item Value Reference Range Interpretation Comme [facility] APTT Patient (test code = 3173-2) See_Comment [[employer]] The system which generated this result transmitted reference range: 26 - 36 Seconds. The reference range was not used to interpret this result as normal/abnormal. Lab Interpretation (test code = 61388-4) Normal [facility] CenterFIBRINOGEN2022-10-17 08:22:37* Test Item Value Reference Range Interpretation Comme nts Fibrinogen (test code = 6674681559) 294 mg/dL 167-453 Lab Interpretation (test cod e = 94947-0) Normal [facility] CenterCB WITH [id number] 08:15:01* Test Item Value Reference Range Interpretation [...] g/dL 31.6-35.1 L RDW-SD (test code = 44495-2) 52.9 fL 39-49.9 H RDW-CV (test code = 788-0) 16.8 % 12-15.5 H PLT (test code = 777-3) See_Comment H [Automated messa ge] The system which generated this result transmitted reference range: 166 - 358 10*3/?L. The reference range was not used to interpret this result as normal/abnormal. MPV (test code = 08126-5) 8.3 fL 9.5-12.9 L NRBC/100 WBC (test code = 6011839885) See_Comment [Automated me ssage] The system which generated this result transmitted reference range: 0.0 - 10.0 /100 WBCs. The reference range was not used to interpret this result as normal/abnormal. NRBC x10^3 (test code = 5091556067) See_Comment [Automated messa ge] The system which generated this result transmitted reference range: 10*3/?L. The reference range was not used to interpret this result as normal/abnormal. GRAN MAT (NEUT) % (test code = 770-8) 86.4 % IMM GRAN % (test code = 7697684369) 0.40 % LYMPH % (test code = 736-9) 11.7 % MONO % (test code = 5905-5) 1.1 % EOS % (test code = 713-8) 0.0 % BASO % (test code = 706-2) 0.4 % GRAN MAT x10^3(ANC) (test code = 8770391866) 6.36 10*3/uL 1.88-7.09 IMM GRAN x10^3 (test code = 3369284165) 0.03 10*3/uL 0-0.06 LYMPH x10^3 (test code = 731-0) 0.86 10*3/uL 1.32-3.29 L MONO x10^3 (test code = 742-7) 0.08 10*3/uL 0.33-0.92 L EOS x10^3 (test code = 711-2) 0.03-0.39 L BASO x10^3 (test code = 704-7) 0.03 10*3/uL 0.01-0.07 Lab Interpretation (test code = 23666-3) Abnormal [facility] CenterVITAMIN D, [id number] 20:14:03* Test Item Value Reference Range Interpretation Comme nts VIT D 25OH (test code = 98433-1) 22 ng/mL 25-80 L LYNDSAY (test code = LYNDSAY) Deficiency: <20 ng/mLInsufficiency: 20-24 ng/mLOptimal: 25-80 ng/mL Lab Interpretation (test code = 61328-3) Abnormal [facility] CenterBASI METABOLIC PANEL (NA, K, CL, CO2, GLUCOSE, BUN, CREATININE, CA)2022-04-15 11:27:57* Test Item Value Reference Range Interpretation Comme nts NA (test code = 9600027891) 138 mmol/L 135-145 K (test code = 8852293225) 3.9 mmol/L 3.5-5 CL (test code = 8712630835) 106 mmol/L 98-108 CO2 TOTAL (test code = 1768275457) 23 mmol/L 23-31 AGAP (test code = 8390707625) 2-16 BUN (test code = 9514009059) 10 mg/dL 7-23 GLUCOSE (test code = 2988375520) 91 mg/dL 70-110 CREATININE (test code = 1093966469) 0.65 mg/dL 0.5-1.04 CALCIUM (test code = 6603426846) 8.1 mg/dL 8.6-10.6 L eGFR (test code = 4395028838) mL/min/1.73m2 LYNDSAY (test code = LYNDSAY) Association [...] imaging tests). Lab Interpretation (test code = 99111-2) Abnormal [facility] CenterSTROKE Protocol - Transthoracic echo (TTE) 2022-04-14 22:07:33* Test Item Value Reference Range Interpretation Comme nts Height (test code = 0718775460) in Weight (test code = 2059052765) lbs Systolic BP (test code = 7677458707) mmHg Diastolic BP (test code = 8300576100) mmHg Heart Rate (test code = 7578805747) bpm BSA (test code = 2098644225) 1.94 m2 TASV (test code = 9335788122) 15.5 cm/s LVIDD (test code = 5556368761) 6.00 cm Left Ventricular End Diastolic Volume by Teichholz Method (test code = 7283611) 183.0 mL IVS (test code = 1375986951) 1.09 cm Interventricular Septum Diastolic Thickness by 2D (test code = 2762095) 1.09 cm LVPWD (test code = 0596974984) 0.94 cm PW (test code = 4531852751) 0.94 cm 0.6-1.1 EF(Teich) (test code = 1386475483) 40.30 % LVIDS (test code = 8203230100) 4.80 cm Left Ventricular End Systolic Volume by Teichholz Method (test code = 0246210) 109.2 mL FS (test code = 7018042451) 20 % EF - 2D (test code = 29399656) 40.30 % LVOT diameter (test code = 7748528960) 2.05 cm LVOT area (test code = 2756237881) 3.30 cm2 Ao root diam (test code = 7074837058) 3.10 cm Aortic root (test code = 4847332803) 3.1 cm Ao root annulus (test code = 1816194827) 3.1 cm LA size (test code = 5754069380) 4.2 cm LAV(MOD-sp4) (test code = 8627249259) 64.90 mL MV Peak A Evette (test code = 0493993872) 115.7 cm/s E wave decelartion time (test code = 6736418374) 0.15 s MV Peak E Evette (test code = 0718817423) 106.2 cm/s E/A ratio (test code = 6329741580) ratio LVOT stroke volume (test code = 0303094588) 48.30 cm3 LVOT peak evette (test code = 9389826139) 78.4 cm/s LVOT mn grad (test code = 3778697861) mmHg AV LVOT peak gradient (test code = 4273268323) mmHg LVOT peak VTI (test code = 8225516642) 14.7 cm LV V1 mean (test code = 9935116687) 51.40 cm/s Ao peak evette (test code = 4360421455) 154.7 cm/s AV area peak evette (test code = 5693592484) 1.7 cm2 Ao max PG (test code = 4438091894) 9.60 mm[Hg] AV peak gradient (test code = 3191732335) mmHg AV regurgitation pressure 1/2 time (test code = 2057825069) 257.3 ms AI dec slope (test code = 1630516017) 498.10 cm/s2 AI max evette (test code = 2965682284) 437.60 cm/s AI max PG (test code = 1864960208) 77.80 mm[Hg] Tapse (test code = 6912881285) 2.19 cm LA Volume Index (BP) (test code = 6823602693) 32.0 mL/m2 LA volume (BP) (test code = 1980921618) 62.1 mL LAV(MOD-sp2) (test code = 5795310636) 52.70 mL A4C EF (test code = 2530654051) 44.80 % EF(sp4-el) (test code = 5607159118) 45.20 % SV(MOD-sp4) (test code = 1373118827) 71.20 mL SV(sp4-el) (test code = 4074900829) 73.90 mL LV Diastolic Volume (BP) (test code = 7307050970) 146.3 mL A2C EF (test code = 8375812401) 52.00 % EF(MOD-bp) (test code = 2643774329) 46.70 % EF(sp2-el) (test code = 2112230625) 52.40 % LV Systolic Volume (BP) (test code = 7946693186) 77.9 mL SV(MOD-bp) (test code = 6042108399) 68.40 mL SV(MOD-sp2) (test code = 8039706380) 69.20 mL EF (test code = 0749471277) Left Ventricular Stroke Volume by 2-D Biplane-MOD (test code = 4100383) 68.4 mL Radiology Study observation (narrative) (test code = 48666-9) LYNDSAY (test code = LYNDSAY) ?Left?Ventricle: Left [...] used and saline contrast was performed. [facility] CenterLEAH (LEVETIRACETAM)2022-04-14 16:48:36* Test Item Value Reference Range Interpretation Comme nts KEPPRA (test code = 2966170303) 12-46 L LYNDSAY (test code = LYNDSAY) Therapeutic range: 12-46 ?g/mL ? ?Toxic: Not well established.Test developed and characteristics determined by [facility] Laboratory Services. Lab Interpretation (test code = 47515-9) Abnormal [facility] CenterB[facility]os[facility] Met[facility] Panel (Na, K, Cl, CO2, Glucose, BUN, Creatinine, Ca)2022-04-14 10:50:11* Test Item Value Reference Range Interpretation Comme [facility] NA (test code = 0773037387) 136 mmol/L 135-145 K (test code = 8700589673) 3.8 mmol/L 3.5-5 CL (test code = 7753068055) 105 mmol/L 98-108 CO2 TOTAL (test code = 8714403718) 25 mmol/L 23-31 AGAP (test code = 4279713220) 2-16 BUN (test code = 3991175820) 9 mg/dL 7-23 GLUCOSE (test code = 9791629620) 101 mg/dL 70-110 CREATININE (test code = 3190933824) 0.66 mg/dL 0.5-1.04 CALCIUM (test code = 8174012002) 8.1 mg/dL 8.6-10.6 L eGFR (test code = 6419540560) mL/min/1.73m2 LYNDSAY (test code = LYNDSAY) Association [...] imaging tests). Lab Interpretation (test code = 39667-2) Abnormal [facility] CenterMagensium, [id number] 10:50:11* Test Item Value Reference Range Interpretation Comme nts MAGNESIUM (test code = 4520181885) 1.9 mg/dL 1.7-2.4 Lab Interpretation (test cod e = 84513-2) Normal [facility] CenterThyroid Stimulating Psfyzgc8481-54-52 22:21:44 * Test Item Value Reference Range Interpretation Comme nts TSH (test code = 6526661008) See_Comment Biotin has been reported to cause a negative bias, interpret results relative to patient's use of biotin. [Automated message] The system which generated this result transmitted reference range: 0.45 - 4.70 mIU/L. The reference range was not used to interpret this result as normal/abnormal. Lab Interpretation (test code = 52582-8) Normal [facility] CenterGLYCOSYLATED HEMOGLOBIN (A1C)2022-04-13 21:53:43* Test Item Value Reference Range Interpretation Comme nts HGB A1C (test code = 4548-4) 5.8 % 4-5.7 H LYNDSAY (test code = LYNDSAY) Reference RangesNormal: <5.7%Prediabetes: 5.7 - 6.4%Diabetes: > 6.5% Lab Interpretation (test code = 62027-8) Abnormal [facility] CenterFASTING LIPID PANEL (47945)(TOTAL CHOLESTEROL, TRIGLYCERIDES, HDL)2022-04-13 21:34:53* Test Item Value Reference Range Interpretation Comme nts CHOL (test code = 1091298013) 201 mg/dL 120-200 H HDL (test code = 1617161700) 56 mg/dL See_Comment [Automated [employer]] The system which generated this result transmitted reference range: >=50. The reference range was not used to interpret this result as normal/abnormal. HDLC RATIO (test code = 7238055668) See_Comment [Automated [employer]] The system which generated this result transmitted reference range: <=4.5. The reference range was not used to interpret this result as normal/abnormal. TRIG (test code = 8562096466) 355 mg/dL 30-170 H LDL CHOL (test code = 53145-8) 74 mg/dL See_Comment [Automated [employer]] The system which generated this result transmitted reference range: <=160. The reference range was not used to interpret this result as normal/abnormal. VLDL (test code = 0489088840) 71 mg/dL 5-60 H Lab Interpretation (test code = 92189-1) Abnormal [facility] CenterTroponin I - Code Duonql7463-73-64 18:46:27* Test Item Value Reference Range Interpretation Comments TROPONIN I (test code = 2473471414) 0.013 ng/mL See_Comment [Automated message] The system [...] of biotin. Lab Interpretation (test code = 90837-7) Normal [facility] Metabolic Panel (NA, K, CL, CO2, Glucose, BUN, Creatinine, CA) - Code Itehvu5182-84-18 18:35:07* Test Item Value Reference Range Interpretation Comme nts NA (test code = 2177841695) 136 mmol/L 135-145 K (test code = 1843534456) 4.3 mmol/L 3.5-5 CL (test code = 1330955063) 105 mmol/L 98-108 CO2 TOTAL (test code = 8726863621) 27 mmol/L 23-31 AGAP (test code = 1559612054) 2-16 BUN (test code = 6490194336) 8 mg/dL 7-23 GLUCOSE (test code = 0473894873) 130 mg/dL 70-110 H CREATININE (test code = 8978422310) 0.75 mg/dL 0.5-1.04 CALCIUM (test code = 6371959393) 8.5 mg/dL 8.6-10.6 L eGFR (test code = 5400030214) mL/min/1.73m2 LYNDSAY (test code = LYNDSAY) Association [...] imaging tests). Lab Interpretation (test code = 91563-2) Abnormal [facility] CenteraPTT - Code Vbuyzw4573-86-32 18:32:46* Test Item Value Reference Range Interpretation Comme nts APTT Patient (test code = 3173-2) See_Comment [Automated message] The system which generated this result transmitted reference range: 23 - 38 Seconds. The reference range was not used to interpret this result as normal/abnormal. LYNDSAY (test code = LYNDSAY) The [facility] patient population mean normal value for aPTT is 30 seconds. Lab Interpretation (test code = 87245-9) Normal [facility] CenterProthrombin Time / INR - Code Nzhgpt4105-34-22 18:30:45* Test Item Value Reference Range Interpretation Comme [facility] PROTIME PATIENT (test code = 5964-2) See_Comment [Automated messa ge] The system which generated this result transmitted reference range: 12.0 - 14.7 Seconds. The reference range was not used to interpret this result as normal/abnormal. INR (test code = 6301-6) Normal INR <1.1; Warfarin Therapeutic range 2.0 to 3.0 or 2.5 to 3.5, depending upon the indications. Lab Interpretation (test code = 34043-0) Normal [facility] CenterCBC without Diff - Code Rpcpkt6983-44-12 18:23:07* Test Item Value Reference Range Interpretation Comme [facility] WBC (test code = 6690-2) See_Comment [...] result as normal/abnormal. MPV (test code = 01908-7) 8.1 fL 9.5-12.9 L RDW-CV (test code = 788-0) 16.1 % 12-15.5 H RDW-SD (test code = 67624-0) 49.2 fL 39-49.9 NRBC x10^3 (test code = 2476231792) See_Comment [Automated [employer]] The system which generated this result transmitted reference range: 10*3/?L. The reference range was not used to interpret this result as normal/abnormal. NRBC/100 WBC (test code = 9366618903) See_Comment [Automated [employer]] The system which generated this result transmitted reference range: 0.0 - 10.0 /100 WBCs. The reference range was not used to interpret this result as normal/abnormal. IPF % (test code = 0599400597) Lab Interpretation (test code = 59695-2) [facility] [id number] 21:06:40* Test Item Value Reference Range Interpretation Comments TROPONIN I (test code = 5546380267) 0.005 ng/mL See_Comment [Automated message] The system [...] of biotin. Lab Interpretation (test code = 74444-9) Normal [facility]. METABOLIC PANEL (98345)2021-11-23 20:55:42* Test Item Value Reference Range Interpretation Comme nts NA (test code = 0278908743) 137 mmol/L 135-145 K (test code = 5761932857) 4.3 mmol/L 3.5-5.0 CL (test code = 8560058495) 104 mmol/L 98-108 CO2 TOTAL (test code = 9118594581) 22 mmol/L 23-31 L AGAP (test code = 8723721732) 2-16 BUN (test code = 6245065296) 15 mg/dL 7-23 GLUCOSE (test code = 7568015342) 114 mg/dL 70-110 H CREATININE (test code = 9614812779) 0.68 mg/dL 0.50-1.04 TOTAL BILI (test code = 0554524623) 0.5 mg/dL 0.1-1.1 CALCIUM (test code = 1547239897) 9.1 mg/dL 8.6-10.6 T PROTEIN (test code = 8519330592) 7.3 g/dL 6.3-8.2 ALBUMIN (test code = 4778866132) 4.4 g/dL 3.5-5.0 ALK PHOS (test code = 8593799478) 243 U/L 34-122 H ALTv (test code = 1742-6) 24 U/L 5-35 AST(SGOT) (test code = 0581022120) 30 U/L 13-40 eGFR (test code = 8318933273) mL/min/1.73m2 LYNDSAY (test code = LYNDSAY) Association [...] imaging tests). Lab Interpretation (test code = 19761-0) [facility] 20:55:22* Test Item Value Reference Range Interpretation Comme nts LIPASE (test code = 2008215016) 96 U/L 0-220 Lab Interpretation (test cod e = 02285-3) Normal [facility]PO[facility] [id number] 20:46:00* Test Item Value Reference Range Interpretation Comme nts POCT PREG (test code = 1605) negative On board controls acceptable with C Line (test code = 3574) present POCT PREG LOT # (test code = 3575) [id number] POCT PREG TEST DATE ( test code = 3576) 04/18/2023 Lab Interpretation (test cod e = 99626-1) Normal [facility]CBC WITH [id number] 20:40:38* Test Item Value Reference Range Interpretation Comme nts WBC (test code = 6690-2) See_Comment [Automated [employer]] The system which generated this result transmitted reference range: 4.30 - 11.10 10*3/?L. The reference range was not used to interpret this result as normal/abnormal. RBC (test code = 789-8) See_Comment [Automated [employer]] The system which generated this result transmitted [...] 31.8 g/dL 31.6-35.1 RDW-SD (test code = 22386-3) 53.7 fL 39.0-49.9 H RDW-CV (test code = 788-0) 17.2 % 12.0-15.5 H PLT (test code = 777-3) See_Comment H [Automated messa ge] The system which generated this result transmitted reference range: 166 - 358 10*3/?L. The reference range was not used to interpret this result as normal/abnormal. MPV (test code = 92126-2) 8.5 fL 9.5-12.9 L NRBC/100 WBC (test code = 8261063358) See_Comment [Automated [employer] ssage] The system which generated this result transmitted reference range: 0.0 - 10.0 /100 WBCs. The reference range was not used to interpret this result as normal/abnormal. NRBC x10^3 (test code = 1358218797) <0.01 See_Comment [Automated messa ge] The system which generated this result transmitted reference range: 10*3/?L. The reference range was not used to interpret this result as normal/abnormal. GRAN MAT (NEUT) % (test code = 770-8) 53.7 % IMM GRAN % (test code = 6017154960) 0.90 % LYMPH % (test code = 736-9) 32.6 % MONO % (test code = 5905-5) 10.1 % EOS % (test code = 713-8) 1.5 % BASO % (test code = 706-2) 1.2 % GRAN MAT x10^3(ANC) (test code = 0924419135) 4.98 10*3/uL 1.88-7.09 IMM GRAN x10^3 (test code = 3826977111) 0.08 10*3/uL 0.00-0.06 H LYMPH x10^3 (test code = 731-0) 3.02 10*3/uL 1.32-3.29 MONO x10^3 (test code = 742-7) 0.94 10*3/uL 0.33-0.92 H EOS x10^3 (test code = 711-2) 0.14 10*3/uL 0.03-0.39 BASO x10^3 (test code = 704-7) 0.11 10*3/uL 0.01-0.07 H Lab Interpretation (test code = 55536-6) [facility]normal [facility] (AUTOMATED)2021-11-23 20:17:33* Test Item Value Reference Range Interpretation Comme nts POCT GLU (test code = 9885419043) 111 mg/dL 70-110 H Notified Provide r Lab Interpretation (test code = 72871-7) [facility]normal [facility] CenterPA TEST, THINPREP, [id number] 00:00:00 * Test Item Value Reference Range Interpretation Comme nts SOURCE: (test code = 8001) Endocervical SLIDES: (test code = 8011) 1 LMP: (test code = 8021) 06/03/2021 SPECIMEN ADEQUACY: (test code = 75567) (NOTE) INTERPRETATION: (test code = 34204) ASCUS/EPITH. ABNORMALITY; SEE BELOW HEAD OF OPERATION AND LOGISTICS: (test code = 8101) CHANA Thacker(ASC)[facility] PATHOLOGIST INTERPRETATION BY: (test code = 8122) Nahid Russell M.D. LOCATION: (test code = 07835) (NOTE) CPT: (test code = 8140) (NOTE) PAP TEST, THINPREP, [id number] 00:00:00* Test Item Value Reference Range Interpretation Comme nts SOURCE: (test code = 8001) Endocervical SLIDES: (test code = 8011) 1 LMP: (test code = 8021) 06/03/2021 SPECIMEN ADEQUACY: (test code = 55625) (NOTE) INTERPRETATION: (test code = 84562) ASCUS/EPITH. ABNORMALITY; SEE BELOW HEAD OF OPERATION AND LOGISTICS: (test code = 8101) CHANA Thacker(ASC)[facility] PATHOLOGIST INTERPRETATION BY: (test code = 8122) Nahid Russell M.D. LOCATION: (test code = 58889) (NOTE) CPT: (test code = 8140) (NOTE) PAP TEST, THINPREP, [id number] 00:00:00* Test Item Value Reference Range Interpretation Comme nts SOURCE: (test code = 8001) Endocervical SLIDES: (test code = 8011) 1 LMP: (test code = 8021) 06/03/2021 SPECIMEN ADEQUACY: (test code = 64069) (NOTE) INTERPRETATION: (test code = 22742) ASCUS/EPITH. ABNORMALITY; SEE BELOW HEAD OF OPERATION AND LOGISTICS: (test code = 8101) CHANA Thacker(ASCP)[facility] PATHOLOGIST INTERPRETATION BY: (test code = 8122) Nahid Russell M.D. LOCATION: (test code = [facility]) (NOTE) CPT: (test code = 8140) (NOTE) PAP TEST, THINPREP, [id number] 00:00:00* Test Item Value Reference Range Interpretation Comme nts SOURCE: (test code = 8001) Endocervical SLIDES: (test code = 8011) 1 LMP: (test code = 8021) 06/03/2021 SPECIMEN ADEQUACY: (test code = 51471) (NOTE) INTERPRETATION: (test code = 22602) ASCUS/EPITH. ABNORMALITY; SEE BELOW HEAD OF OPERATION AND LOGISTICS: (test code = 8101) CHANA Thacker(ASCP)[facility] PATHOLOGIST INTERPRETATION BY: (test code = 8122) Nahid Russell M.D. LOCATION: (test code = [facility]) (NOTE) CPT: (test code = 8140) (NOTE) HPV HIGH RISK WITH GENOTYPE, [id number] 00:00:00* Test Item Value Reference Range Interpretation Comme nts HPV HIGH RISK INTERP (test c ode = 68391) POSITIVE HPV 16 (test code = 49418) POSITIVE HPV 18 (test code = 18256) NEGATIVE HPV, HR, OTHER GENOTYPES (te st code = 96845) POSITIVE HPV HIGH RISK WITH GENOTYPE, [id number] 00:00:00* Test Item Value Reference Range Interpretation Comme nts HPV HIGH RISK INTERP (test c ode = 23576) POSITIVE HPV 16 (test code = 31740) POSITIVE HPV 18 (test code = 82509) NEGATIVE HPV, HR, OTHER GENOTYPES (te st code = 23577) POSITIVE HPV HIGH RISK WITH GENOTYPE, [id number] 00:00:00* Test Item Value Reference Range Interpretation Comme nts HPV HIGH RISK INTERP (test c ode = 53271) POSITIVE HPV 16 (test code = 48621) POSITIVE HPV 18 (test code = 69177) NEGATIVE HPV, HR, OTHER GENOTYPES (te st code = 11741) POSITIVE HPV HIGH RISK WITH GENOTYPE, [id number] 00:00:00* Test Item Value Reference Range Interpretation Comme nts HPV HIGH RISK INTERP (test c ode = 40014) POSITIVE HPV 16 (test code = 31533) POSITIVE HPV 18 (test code = 99744) NEGATIVE HPV, HR, OTHER GENOTYPES (te st code = 65390) POSITIVE [id number] 03:22:48* Test Item Value Reference Range Interpretation Comme nts APPEARANCE (test code = 7781115046) Hazy Clear A COLOR (test code = 7878292383) Yellow Yellow PH (test code = 3754707529) 4.8-8.0 SP GRAVITY (test code = 7054841622) 1.003-1.030 GLU U QUAL (test code = 2186818266) Normal Normal BLOOD (test code = 0128891692) Negative Negative Interference fro m ascorbic acid may cause false negative results. KETONES (test code = 5718170068) 5 mg/dL Negative A PROTEIN (test code = 2887-8) Negative Negative UROBILIN (test code = 1799484003) 4.0 mg/dL Normal A BILIRUBIN (test code = 4202000451) Negative Negative NITRITE (test code = 2909570892) Negative Negative LEUK GRUPO (test code = 2519028067) Negative Negative RBC/HPF (test code = 7404875424) See_Comment [Automated [employer]] The system which generated this result transmitted reference range: 0 - 3 HPF. The reference range was not used to interpret this result as normal/abnormal. WBC/HPF (test code = 4469161962) <1 See_Comment [Automated [employer]] The system which generated this result transmitted reference range: 0 - 5 HPF. The reference range was not used to interpret this result as normal/abnormal. BACTERIA (test code = 2607458217) Few Negative A SQ EPITH (test code = 7993787297) HPF Lab Interpretation (test code = 35391-1) [facility]normal [facility] CenterURINALYSIS2021-08-29 03:22:48* Test Item Value Reference Range Interpretation Comme nts APPEARANCE (test code = 5686973323) Hazy Clear A COLOR (test code = 0899498546) Yellow Yellow PH (test code = 3797499364) 4.8-8.0 SP GRAVITY (test code = 3663643617) 1.003-1.030 GLU U QUAL (test code = 4344638733) Normal Normal BLOOD (test code = 9203694931) Negative Negative KETONES (test code = 4343005479) 5 mg/dL Negative A PROTEIN (test code = 2887-8) Negative Negative UROBILIN (test code = 8420261492) 4.0 mg/dL Normal A BILIRUBIN (test code = 2950104613) Negative Negative NITRITE (test code = 8690998264) Negative Negative LEUK GRUPO (test code = 2426904387) Negative Negative RBC/HPF (test code = 8842055907) See_Comment [Automated [employer]] The system which generated this result transmitted reference range: 0 - 3 HPF. The reference range was not used to interpret this result as normal/abnormal. WBC/HPF (test code = 0859465607) <1 See_Comment [[employer]] The system which generated this result transmitted reference range: 0 - 5 HPF. The reference range was not used to interpret this result as normal/abnormal. BACTERIA (test code = 4048353643) Few Negative A SQ EPITH (test code = 3547091005) HPF Lab Interpretation (test code = 87826-2) [facility]normal [facility] CenterTROPONIN [id number] 02:45:00* Test Item Value Reference Range Interpretation Comments TROPONIN I (test code = 0995216803) 0.002 ng/mL See_Comment [Automated message] The system [...] of biotin. Lab Interpretation (test code = 91947-2) Normal [facility] CenterTROP[facility]IN [id number] 02:45:00* Test Item Value Reference Range Interpretation Comme nts TROPONIN I (test code = 2959899583) 0.002 ng/mL See_Comment [Automated [employer]] The system which generated this result transmitted reference range: <=0.034. The reference range was not used to interpret this result as normal/abnormal. LYNDSAY (test code = LYNDSAY) Lab Interpretation (test code = 77022-9) Normal [facility] CenterN-TERMINAL [id number] 02:41:57* Test Item Value Reference Range Interpretation Comme nts NT-proBNP (test code = 5080893852) 169 pg/mL See_Comment H [Automated message] The system which generated this result transmitted reference range: <=125. The reference range was not used to interpret this result as normal/abnormal. LYNDSAY (test code = LYNDSAY) Biotin has been reported to cause a negative bias, interpret results relative to patient's use of biotin. Lab Interpretation (test code = 44228-8) Abnormal [facility] CenterN-[facility]MINAL [id number] 02:41:57* Test Item Value Reference Range Interpretation Comme nts NT-proBNP (test code = 2139711451) 169 pg/mL See_Comment H [Automated [employer]] The system which generated this result transmitted reference range: <=125. The reference range was not used to interpret this result as normal/abnormal. LYNDSAY (test code = LYNDSAY) Lab Interpretation (test code = 70287-3) Abnormal [facility]. METABOLIC PANEL (43602)2021-03-17 02:09:13* Test Item Value Reference Range Interpretation Comme nts NA (test code = 9376646394) 137 mmol/L 135-145 K (test code = 8901445190) 4.2 mmol/L 3.5-5.0 CL (test code = 3313925906) 102 mmol/L 98-108 CO2 TOTAL (test code = 1755191208) 25 mmol/L 23-31 AGAP (test code = 6299226798) 2-16 BUN (test code = 2477636705) 18 mg/dL 7-23 GLUCOSE (test code = 3026371917) 144 mg/dL 70-110 H CREATININE (test code = 4200674127) 0.77 mg/dL 0.50-1.04 TOTAL BILI (test code = 7934913629) 0.4 mg/dL 0.1-1.1 CALCIUM (test code = 8807566720) 8.9 mg/dL 8.6-10.6 T PROTEIN (test code = 5968886426) 6.8 g/dL 6.3-8.2 ALBUMIN (test code = 3870838540) 3.9 g/dL 3.5-5.0 ALK PHOS (test code = 9133584782) 84 U/L 34-122 ALTv (test code = 1742-6) 13 U/L 5-35 AST(SGOT) (test code = 3841946054) 17 U/L 13-40 eGFR (test code = 4221491229) mL/min/1.73m2 LYNDSAY (test code = LYNDSAY) Association [...] imaging tests). Lab Interpretation (test code = 48254-9) Abnormal [facility]. METABOLIC PANEL (44424)2021-03-17 02:09:13* Test Item Value Reference Range Interpretation Comme nts NA (test code = 3438569446) 137 mmol/L 135-145 K (test code = 2990509819) 4.2 mmol/L 3.5-5.0 CL (test code = 5325374015) 102 mmol/L 98-108 CO2 TOTAL (test code = 0375022829) 25 mmol/L 23-31 AGAP (test code = 9790687169) 2-16 BUN (test code = 7799586063) 18 mg/dL 7-23 GLUCOSE (test code = 4102889580) 144 mg/dL 70-110 H CREATININE (test code = 7886947876) 0.77 mg/dL 0.50-1.04 TOTAL BILI (test code = 0215624093) 0.4 mg/dL 0.1-1.1 CALCIUM (test code = 4318560157) 8.9 mg/dL 8.6-10.6 T PROTEIN (test code = 0286786663) 6.8 g/dL 6.3-8.2 ALBUMIN (test code = 7084492328) 3.9 g/dL 3.5-5.0 ALK PHOS (test code = 5476299328) 84 U/L 34-122 ALTv (test code = 1742-6) 13 U/L 5-35 AST(SGOT) (test code = 7363090313) 17 U/L 13-40 eGFR (test code = 9149983078) mL/min/1.73m2 LYNDSAY (test code = LYNDSAY) Lab Interpretation (test cod e = 76937-3) Abnormal [facility] WITH [id number] 01:56:33* Test Item Value Reference Range Interpretation [...] g/dL 31.6-35.1 L RDW-SD (test code = 54222-9) 55.5 fL 39.0-49.9 H RDW-CV (test code = 788-0) 18.9 % 12.0-15.5 H PLT (test code = 777-3) See_Comment H [Automated messa ge] The system which generated this result transmitted reference range: 166 - 358 10*3/?L. The reference range was not used to interpret this result as normal/abnormal. MPV (test code = 67750-5) 8.2 fL 9.5-12.9 L NRBC/100 WBC (test code = 3699159431) See_Comment [Automated [employer]age] The system which generated this result transmitted reference range: 0.0 - 10.0 /100 WBCs. The reference range was not used to interpret this result as normal/abnormal. NRBC x10^3 (test code = 0336578497) <0.01 See_Comment [Automated messa ge] The system which generated this result transmitted reference range: 10*3/?L. The reference range was not used to interpret this result as normal/abnormal. GRAN MAT (NEUT) % (test code = 770-8) 61.7 % IMM GRAN % (test code = 2571110549) 0.80 % LYMPH % (test code = 736-9) 28.5 % MONO % (test code = 5905-5) 6.3 % EOS % (test code = 713-8) 1.8 % BASO % (test code = 706-2) 0.9 % GRAN MAT x10^3(ANC) (test code = 1709056046) 7.31 10*3/uL 1.88-7.09 H IMM GRAN x10^3 (test code = 2204521804) 0.09 10*3/uL 0.00-0.06 H LYMPH x10^3 (test code = 731-0) 3.38 10*3/uL 1.32-3.29 H MONO x10^3 (test code = 742-7) 0.75 10*3/uL 0.33-0.92 EOS x10^3 (test code = 711-2) 0.21 10*3/uL 0.03-0.39 BASO x10^3 (test code = 704-7) 0.11 10*3/uL 0.01-0.07 H Lab Interpretation (test code = 08981-0) Abnormal [facility] WITH [id number] 01:56:33* Test Item Value Reference Range Interpretation [...] g/dL 31.6-35.1 L RDW-SD (test code = 75638-1) 55.5 fL 39.0-49.9 H RDW-CV (test code = 788-0) 18.9 % 12.0-15.5 H PLT (test code = 777-3) See_Comment H [Automated messa ge] The system which generated this result transmitted reference range: 166 - 358 10*3/?L. The reference range was not used to interpret this result as normal/abnormal. MPV (test code = 24716-5) 8.2 fL 9.5-12.9 L NRBC/100 WBC (test code = 2234367272) See_Comment [Automated [employer] ssage] The system which generated this result transmitted reference range: 0.0 - 10.0 /100 WBCs. The reference range was not used to interpret this result as normal/abnormal. NRBC x10^3 (test code = 1356432632) <0.01 See_Comment [Automated messa ge] The system which generated this result transmitted reference range: 10*3/?L. The reference range was not used to interpret this result as normal/abnormal. GRAN MAT (NEUT) % (test code = 770-8) 61.7 % IMM GRAN % (test code = 1573458732) 0.80 % LYMPH % (test code = 736-9) 28.5 % MONO % (test code = 5905-5) 6.3 % EOS % (test code = 713-8) 1.8 % BASO % (test code = 706-2) 0.9 % GRAN MAT x10^3(ANC) (test code = 9549660732) 7.31 10*3/uL 1.88-7.09 H IMM GRAN x10^3 (test code = 6216818068) 0.09 10*3/uL 0.00-0.06 H LYMPH x10^3 (test code = 731-0) 3.38 10*3/uL 1.32-3.29 H MONO x10^3 (test code = 742-7) 0.75 10*3/uL 0.33-0.92 EOS x10^3 (test code = 711-2) 0.21 10*3/uL 0.03-0.39 BASO x10^3 (test code = 704-7) 0.11 10*3/uL 0.01-0.07 H Lab Interpretation (test code = 36871-3) Abnormal [facility]- (ID NOW RAPID TESTING)2021-03-17 01:38:12* Test Item Value Reference Range Interpretation Comme nts SARS-CoV-2 Rapid ID NOW (test code = 49612-9) Not Detected Not Detected LYNDSAY (test code = LYNDSAY) ID NOW COVID-19 As say is an isothermal nucleic acid amplification test intended for the qualitative detection of nucleic acid from SARS-CoV-2 viral RNA in nasopharyngeal (ROBOTICS APPLICATION ENGINEER) specimens. It is used under Emergency Use [...] clinically indicated. Lab Interpretation (test code = 81202-2) Normal [place] [address] (ID NOW RAPID TESTING)2021-03-17 01:38:12* Test Item Value Reference Range Interpretation Comme nts SARS-CoV-2 Rapid ID NOW (raisa t code = 19379-9) Not Detected Not Detected LYNDSAY (test code = LYNDSAY) Lab Interpretation (test cod e = 33452-0) Normal [place] [address] (ID NOW RAPID TESTING)2021-02-19 17:42:45* Test Item Value Reference Range Interpretation Comme nts SARS-CoV-2 Rapid ID NOW (test code = 45995-0) Not Detected Not Detected LYNDSAY (test code = LYNDSAY) ID NOW COVID-19 As say is an isothermal nucleic acid amplification test intended for the qualitative detection of nucleic acid from SARS-CoV-2 viral RNA in nasopharyngeal (ROBOTICS APPLICATION ENGINEER) specimens. It is used under Emergency Use [...] clinically indicated. Lab Interpretation (test code = 53188-3) Normal [facility]CT ABDOMEN PELVIS W [id number] 17:24:55Thickening of the gastric antrum and duodenal [...] and nodularity of the left adrenal gland.RL: 0075 Electronicallysigned by James Freeman at 02/19/2021 12:24 PMUnTexas Health KaufmanUrinalysis2021-08-03 17:03:40* Test Item Value Reference Range Interpretation Comme nts APPEARANCE (test code = 3707295464) Hazy Clear A COLOR (test code = 4336034372) Mabel Yellow A PH (test code = 4877632557) 4.8-8.0 SP GRAVITY (test code = 3000224070) 1.003-1.030 H GLU U QUAL (test code = 0266077166) Normal Normal BLOOD (test code = 7002864500) Negative Negative KETONES (test code = 1151059122) 5 mg/dL Negative A PROTEIN (test code = 2887-8) 30 mg/dL Negative A UROBILIN (test code = 3809542869) 4.0 mg/dL Normal A BILIRUBIN (test code = 6407545412) 4 mg/dL Negative A NITRITE (test code = 4481165242) Negative Negative LEUK GRUPO (test code = 9316282689) Negative Negative RBC/HPF (test code = 7629027719) See_Comment H [Automated messa ge] The system which generated this result transmitted reference range: 0 - 3 HPF. The reference range was not used to interpret this result as normal/abnormal. WBC/HPF (test code = 1450964573) See_Comment H [Automated messa ge] The system which generated this result transmitted reference range: 0 - 5 HPF. The reference range was not used to interpret this result as normal/abnormal. BACTERIA (test code = 2225762701) Few Negative A MUCOUS (test code = 2225067168) Moderate Negative LPF A SQ EPITH (test code = 1793271783) HPF CA OXALATE (test code = 5309539022) See_Comment H [Automated messa ge] The system which generated this result transmitted reference range: <=1 HPF. The reference range was not used to interpret this result as normal/abnormal. Ictotest (test code = 1284844208) Negative Lab Interpretation (test code = 31010-5) [facility]normal [facility] CenterComplete Metabolic [id number] 16:34:55* Test Item Value Reference Range Interpretation Comme nts NA (test code = 9030202188) 139 mmol/L 135-145 K (test code = 9563485413) 4.3 mmol/L 3.5-5.0 CL (test code = 1744708154) 105 mmol/L 98-108 CO2 TOTAL (test code = 7820658205) 26 mmol/L 23-31 AGAP (test code = 8003826122) 2-16 BUN (test code = 8318701611) 11 mg/dL 7-23 GLUCOSE (test code = 2969481376) 95 mg/dL 70-110 CREATININE (test code = 6628076971) 0.70 mg/dL 0.50-1.04 TOTAL BILI (test code = 5895132728) 0.6 mg/dL 0.1-1.1 CALCIUM (test code = 0214115192) 8.9 mg/dL 8.6-10.6 T PROTEIN (test code = 0566176962) 7.7 g/dL 6.3-8.2 ALBUMIN (test code = 0855019335) 4.1 g/dL 3.5-5.0 ALK PHOS (test code = 3858248783) 79 U/L 34-122 ALTv (test code = 1742-6) 10 U/L 5-35 AST(SGOT) (test code = 1949860940) 22 U/L 13-40 eGFR (test code = 8898878663) mL/min/1.73m2 LYNDSAY (test code = LYNDSAY) Association [...] urine or abnormalities in imaging tests). [facility] CenterLipase, Acsut9845-96-64 16:34:14* Test Item Value Reference Range Interpretation Comme nts LIPASE (test code = 3159303657) 45 U/L 0-220 Lab Interpretation (test cod e = 13280-1) Normal [facility] CenterCBC with Usgdjylowldg1651-32-27 16:21:12* Test Item Value Reference Range Interpretation Comme nts WBC (test code = 6690-2) See_Comment [Automated [employer]] The system which generated this result transmitted reference range: 4.30 - 11.10 10*3/?L. The reference range was not used to interpret this result as normal/abnormal. RBC (test code = 789-8) See_Comment [Automated [employer]] The system which generated this result transmitted [...] g/dL 31.6-35.1 L RDW-SD (test code = 45795-4) 54.4 fL 39.0-49.9 H RDW-CV (test code = 788-0) 18.3 % 12.0-15.5 H PLT (test code = 777-3) See_Comment H [Automated [employer]] The system which generated this result transmitted reference range: 166 - 358 10*3/?L. The reference range was not used to interpret this result as normal/abnormal. MPV (test code = 80292-9) 8.5 fL 9.5-12.9 L NRBC/100 WBC (test code = 4611016497) See_Comment [Automated me ssage] The system which generated this result transmitted reference range: 0.0 - 10.0 /100 WBCs. The reference range was not used to interpret this result as normal/abnormal. NRBC x10^3 (test code = 9528772527) <0.01 See_Comment [Automated messa ge] The system which generated this result transmitted reference range: 10*3/?L. The reference range was not used to interpret this result as normal/abnormal. GRAN MAT (NEUT) % (test code = 770-8) 78.3 % IMM GRAN % (test code = 1896623044) 0.40 % LYMPH % (test code = 736-9) 15.4 % MONO % (test code = 5905-5) 4.8 % EOS % (test code = 713-8) 0.1 % BASO % (test code = 706-2) 1.0 % GRAN MAT x10^3(ANC) (test code = 1129753655) 7.15 10*3/uL 1.88-7.09 H IMM GRAN x10^3 (test code = 9328346084) 0.04 10*3/uL 0.00-0.06 LYMPH x10^3 (test code = 731-0) 1.41 10*3/uL 1.32-3.29 MONO x10^3 (test code = 742-7) 0.44 10*3/uL 0.33-0.92 EOS x10^3 (test code = 711-2) <0.03 0.03-0.39 L BASO x10^3 (test code = 704-7) 0.09 10*3/uL 0.01-0.07 H Lab Interpretation (test code = 49982-5) Abnormal [facility] Notes Date/Time Note Provider Source 2023-09-11 11:34:02 BoI3A0fQPtKHOiylEFJVSEFfiPRpttY/d0RsA3 HycnxBGHxvg/CPqElbpko1EO7t6255-06-79A4 1:34:02 Chief ComplaintPatient presents withFollow-up HospitalizationPasouth [facility] BETO DonahueN 31312-0Ommkr QsmfST3923-96-15S47:34:35Nurse NoteTXT1.2.840.761887.1.13.131.2.7.2.7 44058|[id number] for patient gfts47412-9Kobvm NoteLNNARRATIVEFormatted C-CDA narrative [facility] [facility] [id number] 669-53-53S54:34:351.2.840.203795.1.72. 3.15|1.2.840.580195.1.13.131.2.7.2.727 [id number] [facility] 2023-08-12 16:08:34 ZgGFnsSprbBLn79C3efPmvAt/FysjUz6c+T3SV xUkyhqXfFDSke8jCOvR4KLHiyg7019-86-72A2 6:08:34 Bryan spoke to patient and patient decided to leave AMA.AMA form signed by patient and attached to paperwork.Patient in stable condition with AMA. IV line removed and patient was assisted onto wheelchair and moved to the [facility].Patient called her prior to leaving room and will be picking up patient. 09614-2Strqoetdj department XmupMG8459-41-14W81:09:43Emergency department NoteTXT1.2.840.518229.1.13.104.2.7.2.7 22071|[id number] for patient akyf33772-0FnqrJESBYOBJYRJFovstozqw C-CDA narrative [id number] [place] RNUT[id number] QIIIXLECGJEFBKZJVNSD3715-17-93I86:09:4 31.2.840.421523.1.72.3.15|1.2840.1143 50.1.13.104.2.7.2.727879_[id number] Steph Dumont RN [facility] 2023-08-12 15:56:21 +/ZiDdWpMmD531/yyEbkLSktD5T7wYHOpRlWXl D5PozskiyVfVhMrusiUwwHJAwM0072-58-19L4 5:56:21 Patient requesting to talk to provider - provider aware.Patient refused tylenol as she said medication does not improve her condition and she does not want to throw it up.Patient also refusing blood draw at this time. 48281-3Jwikbmlbu department OaahIK6737-43-44O14:57:14[facility] NoteTXT1.2.840.579069.1.13.104.2.7.2.7 30292|[id number] for patient isqs43058-3AtnrORLUQHDZSGIYvmqnubak C-CDA narrative text[id number] JJAKREAZEZHRQMKHRKKQ4075-80-38B07:57:1 41.2.840.987919.1.72.3.15|1.2840.1143 50.1.13.104.2.7.2.727879_[id number] [facility] 2023-08-12 14:50:00 ui2SsELW7ocNiIxtMuYz0OPTgDqGRe8t8H/mPV qw1WouF2GMHv5lY3sO9EG1Typk5654-53-27D9 4:50:00 Patient's name and verified with patient.No [...] [place] [address]-8Ntnfajkyo department VhtsOY3402-20-92J64:29:07[facility] department NoteTXT1.2.840.232478.1.13.104.2.7.2.7 91850|[id number] for patient mcax08400-4JfklSEGXFSWDRZYXagrmsoqx C-CDA narrative textUTMBUT - [address] Nk[id number] YYUGBSSZQMXUDFFZCEIC4218-44-52M24:29:0 71.2.840.972840.1.72.3.15|1.2.840.1143 50.1.13.104.2.7.2.727879_[id number] [facility] 2023-08-12 14:17:22 ci0BCBv0xR0bF2Gu7EU96GBiGZoa++7lpl6md4 nJI9LmeC+cfZPjximLgWPgOpin3026-62-20X6 4:17:22 Patient had witnessed seizure like activity.DO Flor at bedside.Patient stopped seizure activity and had no postictal phase.Patient coherent, alert and oriented/answering all questions appropriately. 93562-0Aulggesyj department PrlnWQ0491-42-00A93:18:15[facility] department NoteTXT1.2.840.614334.1.13.104.2.7.2.7 65903|[id number] for patient bysb10972-5AsmrPBRHXSICFLHLrhpaaunp C-CDA narrative text[address] EpiqXzbqixystDtcrvrifhYPDL1838198525TY EERLUEFFRWILOJCBXKXP0867-94-68W06:18:1 51.2.840.178059.1.72.3.15|1.2.840.1143 50.1.13.104.2.7.2.727879_[id number] [facility] 2023-08-12 13:45:33 ScVZp3Zh5tBVRiguDcw6DrY66Fg4rCw/HjgJpP W+B+wu3eAB5h1yNj/PTk4PAMM85269-67-95R2 3:45:33 Patient here for chest pain that started approximately 1 hour ago. Patient had seizure like activity in the vehicle while attempting to get patient out of the car, patient had no post ictal phase. Patient c/o substernal chest pain and jaw pain. 03843-0Agwuepmyg department Triage vzrvEM4095-44-16P78:46:59[facility] department Triage noteTXT1.2.840.661064.1.13.104.2.7.2.7 00570|[id number] for patient twma08783-1Aukadibpf department NoteLNNARRATIVEFormatted C-CDA narrative [id number] S Jean Paul RN[id number] SIEJVZOTQVZFJLYMBHSG0877-76-52U80:46:5 91.2.840.485211.1.72.3.15|1.2.840.1143 50.1.13.104.2.7.2.727879_[id number] Jasvir Alexander Jean Paul RN [facility] 2023-08-12 13:42:00 LhLkXcBjAJNB3+avrS/2fueLlkmNrCHG17Ka/c +2Rw+/D1ED68M6v5i0suslMWkD0792-29-55M6 3:42:00 [facility] Emergency Department NotePatient Name: Heather TurnerDate of : 1970 53 year old femaleTreatment Room: [address] Record Number: [id number] Care Physician: PATIENT DOES NOT HAVE A PCPPatient Escorted by: Family [5]Mode of Arrival: Personal means [1]EMS Treatment Prior to ED Arrival: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 treatment: NoneTravel and Exposure Screening:SymptomsDoes patient have [...] received in last 5 years: NoChildhood immunizations: Gk-ez-wfhuPnbtylvei:AllergiesAllergen ReactionsGreen Tea Other - See commentsSeizuresDiclofenac HypertensionKeppra [Levetiracetam] Other - See commentsMakes seizures worsePast Social History:Tobacco UseEvery Day; 1 pack/day for 30.00 years; Types: Cigarettes, CigarsPassive Exposure: CurrentSmokeless Tobacco: Never used smokeless tobacco.Alcohol UseNo.Drug UseYes; Marijuana.Comments: smokes marijuana dailySexual ActivitySexually active; Partners: Male.Past Surgical History:Past Surgical History:Procedure Laterality DateANTERIOR CERVICAL FUSIONCHOLECYSTECTOMYHAND/FINGER SURGERY UNLISTED Bilateral3 L hand, 3 R handMETATARSAL OSTEOTOMY Right 08/14/2015Surgeon: uLis Jones Jr., [facility]; [facility]:Review of SystemsPhysical Exam:ED [...] (*) 0.01 - 0.07 10*3/uLCOMP. METABOLIC PANEL (73850) - AbnormalNA 140 135 - 145 mmol/LK [...] U/LAST(SGOT) 21 13 - 40 U/LeGFR 107.1 mL/min/1.46j1LDRDXU ACID WHOLE BLOOD - NormalLACTIC ACID 1.56 0.50 - 2.20 mmol/LURINALYSISTROPONIN IEKG:If EKG completed, see Procedure Note.Orders and Treatments:Orders Placed This EncounterProceduresCbc with DiffComp. Metabolic Panel (76775)UrinalysisLactic Acid Whole BloodTroponin IOrders Placed This EncounterMedicationslacosamide (VIMPAT) 100 mg in NaCl 0.9% (NS) 50 mL piggybackacetaminophen (TYLENOL) tablet 1,000 mgFirst Provider Eval:ED EventsDate/Time Event User Yrzgmpcl00/24/24 1345 Medical Screening Begins BRIAN BRYAN --08/12/23 [...] on fileFollow-up:Contact information for follow-Yehuda Segovia MDSpecialty: -[facility]UR[facility]YNEW [facility] AND VXEGAUG[address] [place] [id number]: [phone]-Emergency DepartmentSpecialty: Emergency Dngahvxs[address] [place] [address]Mikhw: [phone]: If symptoms worsen as documented in the dischargeElectronically signed by:Brian Bryan DO08/12/23 1605Brian Bryan DO08/12/23 1605 04798-1Amritxgcu Emergency department YuktAS2114-91-17M97:05:59Physician Emergency department NoteTXT1.2.840.792850.1.13.104.2.7.2.7 52279|[id number] for patient dzpo45637-4Elcdquici department NoteLNNARRATIVEFormatted C-CDA narrative text[address] Ux[id number] ALLYSJYMCMOHTXGLYLIP7715-56-14M11:05:5 91.2.840.835505.1.72.3.15|1.2.840.1143 50.1.13.104.2.7.2.727879_[id number] [facility]
[2023-11-12] MEDS ORDERED: IPRATROPIUM BROM 0.5MG/2.5ML ONE (03:14)
[2023-11-12] MEDS ORDERED: METHYLPREDNISOLONE 125 MG INJ ONE (03:14)
[2023-11-12] MEDS ORDERED: FAMOTIDINE 20 MG/2 ML VIAL IV ONE (03:15)
[2023-11-12] MEDS ORDERED: FUROSEMIDE 40 MG/4 ML VIAL ONE ×2 (03:15→07:43)
[2023-11-12] MEDS ORDERED: Levofloxacin500mg IV 500 MG/100 ML BAG IV ONE (03:15)
[2023-11-12] MEDS ORDERED: LEVALBUTEROL 1.25 MG/3 ML NEB ONE (03:15)
[2023-11-12] MEDS ORDERED: ONDANSETRON 4 MG/2 ML VIAL ONE ×2 (03:28→06:46)
[2023-11-12 03:48] LABS: PT Prothrombin Time 17.5 SECONDS (9.5-12.5); Protime INR 1.61
[2023-11-12 03:49] LABS: Absolute Basophils 0.1 K/uL (0-0.5); Absolute Lymphocytes (CBC) 1.8 K/uL (0.7-4.9); Absolute Monocytes 0.6 K/uL (0.1-1.3); Absolute Neutrophil 4.9 K/uL (1.8-8.0); Basophils % 0.8 % (0-1.3); Eosinophils % 0.5 % (0-4.4); Hematocrit 27.2 % (36.0-45.0); Hemoglobin 8.3 g/dL (12.0-15.0); Lymphocytes % 24.6 % (15.3-44.8); MCH 24.9 pg (27.0-35.0); MCHC 30.4 g/dL (32.0-36.0); MCV 81.9 fL (80-100); Monocytes % 7.9 % (3.3-12.3); Neutrophils % 66.2 % (41.7-73.7); Nucleated Red Blood Cells % 0.3 % (0-0); Platelets 401 thou/uL (152-406); RBC Red Blood Cell Count 3.32 M/uL (3.86-4.86); Red Cell Distribution Width 22.8 % (12.1-15.2)
[2023-11-12 03:58] LABS: Albumin 3.2 g/dL (3.4-5.0); Albumin/Globulin Ratio 0.9 (1.1-1.8); Anion Gap 12.6 mEq/L (5.0-15.0); Bilirubin Direct 0.3 mg/dL (0-0.2); Bilirubin Indirect, Calculated 0.2 mg/dL (0.2-0.8); Bilirubin Total 0.5 mg/dL (0.2-1.0); Globulin 3.7 g/dL (2.3-3.5); Magnesium 2.1 mg/dL (1.6-2.4); Potassium 3.6 mEq/L (3.5-5.1); Protein, Total 6.9 g/dL (6.4-8.2); Valproic Acid (Depakene) Level 3.7 mcg/mL (50.0-100.0)
[2023-11-12] MEDS ORDERED: MORPHINE 4 MG/ML SYR ONE (04:05)
--- NOTE | 2023-11-12 04:06 | EDPHYS ---
Physician Documentation [facility] Name: Heather Coon Age: 53 yrs Sex: Female : 1970 Arrival Date: 11/12/2023 Time: 01:53 Bed 20 Private MD: JACKELINE Physician Derrick Santillan HPI: 11/11 02:04 This 53 yrs old Female presents to ER via Ambulatory with complaints of sob , fabrice copd exacerbation. 02:04 The patient has shortness of breath at rest, with light activity. Onset: The fabrice symptoms/episode began/occurred just prior to arrival, 2 day(s) ago. Duration: The symptoms are continuous, and are steadily getting worse. The patient's shortness of breath is aggravated by coughing, talking, walking. sob , recent fall , decreased urine. Associated signs and symptoms: Pertinent positives: non-productive cough. Severity of symptoms: At their worst the symptoms were moderate this morning, today. Severity of symptoms: At their worst the symptoms were moderate in the emergency department the symptoms are unchanged. The patient has experienced similar episodes in the past, multiple times. 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 N/A - Post-menopause, Not bm8 Historical: - Allergies: 02:04 fluoxetine; vc1 02:04 Green Tea; vc1 02:04 Keppra; not an allergy; vc1 - Home Meds: 02:04 Depakote Oral [Active]; Folic Acid Oral [Active]; Lasix Oral [Active]; lisinopril Oral vc1 [Active]; Metoprolol Tartrate Oral [Active]; - PMHx: 02:04 Anxiety; Arthritis; Bipolar disorder; Cancer-Cervical; Chronic obstructive lung vc1 disease; Chronic pain; Congestive heart failure; Depression; Diverticulitis; Herniated Back Disc; Hypertension; intestinal mass; Myocardial infarction; pt reports hx of seizures; Spastic Muscles; stroke; - PSHx: 02:04 back surgery; cervical fusion; Cholecystectomy; foot; Tonsillectomy; vc1 - Immunization history:: Client reports receiving the 2nd dose of the Covid vaccine, Flu vaccine is not up to date. - Infectious Disease History:: Denies. - Family history:: not pertinent. - Social history:: Smoking status: Patient reports the use of cigarette tobacco products, smokes one-half pack cigarettes per day, Patient uses states stopped using cocaine and ETOH. ROS: 02:06 Constitutional: Negative for fever, chills, and weight loss, Eyes: Negative for injury, fabrice pain, redness, and discharge, ENT: Negative for injury, pain, and discharge, Neck: Negative for injury, pain, and swelling, Abdomen/GI: Negative for abdominal pain, nausea, vomiting, diarrhea, and constipation, Back: Negative for injury and pain, : Negative for injury, bleeding, discharge, and swelling, MS/Extremity: Negative for injury and deformity, Skin: Negative for injury, rash, and discoloration, Neuro: Negative for headache, weakness, numbness, tingling, and seizure, 02:06 Cardiovascular: Positive for palpitations, 02:06 Respiratory: Positive for cough, "sounds productive", shortness of breath, at rest. wheezing, inspiratory, expiratory, 02:06 MS/extremity: Positive for swelling, of the right leg and left leg, Exam: 02:12 Constitutional: This is a well developed, well nourished patient who is awake, alert, fabrice and in no acute distress. Head/Face: Normocephalic, atraumatic. Eyes: Pupils equal round and reactive to light, extra-ocular motions intact. Lids and lashes normal. Conjunctiva and sclera are non-icteric and not injected. Cornea within normal limits. Periorbital areas with no swelling, redness, or edema. ENT: Nares patent. No nasal discharge, no septal abnormalities noted. Tympanic membranes are normal and external auditory canals are clear. Oropharynx with no redness, swelling, or masses, exudates, or evidence of obstruction, uvula midline. Mucous membranes moist. Neck: Trachea midline, no thyromegaly or masses palpated, and no cervical lymphadenopathy. Supple, full range of motion without nuchal rigidity, or vertebral point tenderness. No Meningismus. Chest/axilla: Normal chest wall appearance and motion. Nontender with no deformity. No lesions are appreciated. Abdomen/GI: Soft, non-tender, with normal bowel sounds. No distension or tympany. No guarding or rebound. No evidence of tenderness throughout. Back: No spinal tenderness. No costovertebral tenderness. Full range of motion. Female : Normal external genitalia. Skin: Warm, dry with normal turgor. Normal color with no rashes, no lesions, and no evidence of cellulitis. MS/ Extremity: Pulses equal, no cyanosis. Neurovascular intact. Full, normal range of motion. Neuro: Awake and alert, GCS 15, oriented to person, place, time, and situation. Cranial nerves II-XII grossly intact. Motor strength 5/5 in all extremities. Sensory grossly intact. Cerebellar exam normal. Normal gait. Psych: Awake, alert, with orientation to person, place and time. Behavior, mood, and affect are within normal limits. 02:12 Cardiovascular: Rate: tachycardic, actual rate is 122 bpm, Rhythm: regular, Pulses: Pulses are 4+ in bilateral radial, brachial, femoral, popliteal, posterior tibial and and dorsalis pedis arteries.. 02:12 Musculoskeletal/extremity: ROM: intact in all extremities, full active range of motion, Circulation is intact in all extremities. Sensation intact. Compartment Syndrome exam of affected extremity: is normal. Weight bearing: is unable to bear weight, DVT Exam: no tenderness, negative Homans' sign noted on exam, no appreciated bluish discoloration, no erythema, no increased warmth, pain, swelling, 02:29 ECG was reviewed by the Attending Physician. [facility] Vital Signs: 02:02 BP 146 / 106; Pulse 122; Resp 20; Temp 97; Pulse Ox 97% on R/A; Weight 83.91 kg; Height vc1 5 ft. 3 in. ; 03:38 BP 144 / 102; Pulse 119; Resp 18; Pulse Ox 100% on R/A; tm6 04:11 BP 154 / 104; Pulse 122; Resp 21; Temp 97; Pulse Ox 96% ; Pain 8/10; bm8 02:02 Body Mass Index 32.77 (83.91 kg, 160.02 cm) vc1 04:11 Pain Scale: Adult bm8 [place] Coma Score: 03:04 Eye Response: spontaneous(4). Motor Response: obeys commands(6). Verbal Response: fabrice oriented(5). Total: 15. 04:11 Eye Response: spontaneous(4). Motor Response: obeys commands(6). Verbal Response: bm8 oriented(5). Total: 15. Procedures: 03:05 Peripheral line: by aseptic technique a peripheral line was placed in the left external fabrice jugular vein. MDM: 01:56 Patient medically screened. [facility] 02:13 Differential diagnosis: Anemia asthma, Bronchitis CHF exacerbation, Chronic Obstructive fabrice Pulmonary Disease Myocardial Infarction pneumonia, Pneumothorax pulmonary edema, Pulmonary Embolism reactive airway disease, Sepsis Unstable Angina. Antibiotic administration: Levaquin given. Differential Diagnosis sepsis, flu. Immunization status: Influenza vaccine: within last 5 years. Data reviewed: vital signs, nurses notes, EMS record, lab test result(s), CBC, electrolytes, hepatic panel, EKG, radiologic studies. Consideration of Admission/Observation Patient was admitted/placed on observation. Escalation of care including admission/observation considered. I considered the following discharge prescriptions or medication management in the emergency department Medications were administered in the Emergency Department. See MAR. Test considered but Not performed: Ultrasound no us bilateral lower extremities. Counseling: I had a detailed discussion with the patient and/or guardian regarding the historical points, exam findings, and any diagnostic results supporting the discharge/admit diagnosis, the presence of at least one elevated blood pressure reading (>120/80) during this emergency department visit, lab results, radiology results, the need for further work-up and treatment in the hospital. 11/11 01:58 Order name: Basic Metabolic Panel; Complete Time: 03:59 [facility] 11/11 01:58 Order name: CBC with Diff; Complete Time: 07:09 [facility] 11/11 01:58 Order name: LFT's; Complete Time: 03:59 [facility] 11/11 01:58 Order name: Magnesium; Complete Time: 03:59 [facility] 11/11 01:58 Order name: NT PRO-BNP; Complete Time: 03:59 [facility] 11/11 01:58 Order name: PT-INR; Complete Time: 03:54 [facility] 11/11 01:58 Order name: Troponin HS; Complete Time: 03:59 [facility] 11/11 01:58 Order name: Urinalysis w/ reflexes; Complete Time: 07:09 [facility] 11/11 01:58 Order name: UDS; Complete Time: 07:09 [facility] 11/11 01:58 Order name: Lactate w/ 2H reflex if indic.; Complete Time: 04:14 [facility] 11/11 01:58 Order name: Blood Culture Adult (2) [facility] 11/11 03:45 Order name: Valproic Acid (Depakene) Level; Complete Time: 03:59 [facility] 11/11 03:55 Order name: CBC Smear Scan; Complete Time: 07:09 [facility] 11/11 07:18 Order name: Lactate Sepsis 2 HR Follow-up [facility] 11/11 01:58 Order name: XRAY Chest (1 view) [facility] 11/11 01:59 Order name: CT Traumagram (Head C Spine CAP wo con) [facility] 11/11 01:58 Order name: Cardiac monitoring; Complete Time: 02:35 [facility] 11/11 01:58 Order name: EKG - Nurse/Tech; Complete Time: 02:17 [facility] 11/11 01:58 Order name: IV Saline Lock; Complete Time: 03:42 [facility] 11/11 01:58 Order name: Labs collected and sent; Complete Time: 03:42 [facility] 11/11 01:58 Order name: O2 Per Protocol; Complete Time: 02:35 [facility] 11/11 01:58 Order name: O2 Sat Monitoring; Complete Time: 02:35 [facility] EC:29 Rate is 118 beats/min. Rhythm is regular. QRS [place] is Normal. MI interval is normal. [facility] QRS interval is normal. QT interval is normal. No Q waves. T waves are Normal. No ST changes noted. Clinical impression: Sinus tachycardia and No evidence of ischemia. Interpreted by me. Reviewed by me. Administered Medications: 02:36 CANCELLED (Duplicate Order): ns 0.9% 1000 ml IV at 125 ml/hr continuous fabrice 03:41 Drug: Furosemide IVP 40 mg IVP once; give over 2 minutes Route: IVP; Site: left jugular;bm8 03:41 Drug: Ondansetron IVP 4 mg IVP once; over 2 minutes Route: IVP; Site: left jugular; bm8 03:42 Drug: Famotidine IVP 20 mg IVP once; dilute with 10 mL 0.9% NaCl; give over 2 minutes bm8 Route: IVP; Site: left jugular; 03:42 Drug: MethylPrednisoLONE IVP 125 mg IVP once Route: IVP; Site: left jugular; bm8 03:42 Drug: Levalbuterol Inhalation 3.75 mg Inhalation once Route: Inhalation; bm8 03:42 Drug: Ipratropium Inhalation Aerosol 0.5 mg Inhalation once Route: Inhalation; bm8 03:42 Drug: levofloxacin IVPB 500 mg 100 ml IVPB once over 60 mins Volume: 100 ml; Route: bm8 IVPB; Infused Over: 60 mins; Site: left jugular; 04:10 Drug: morphine IVP or IV 4 mg IVP once over 4 mins Route: IVP; Infused Over: 4 mins; bm8 Site: left jugular; Disposition Summary: 11/12/23 04:05 Hospitalization Ordered Notes: Hospitalization Status: Inpatient Admission fabrice Provider: John Salinas cha Condition: Fair fabrice Problem: new fabrice Symptoms: have improved fabrice Bed/Room Type: Standard fabrice Location: Telemetry/MedSurg (Inpatient)(11/12/23 12:39) em1 Room Assignment: 212(11/12/23 13:16) em1 Diagnosis - Chronic combined systolic (congestive) and diastolic (congestive) heart failure fabrice - Anemia, unspecified fabrice - Dyspnea fabrice - Tobacco abuse counseling fabrice - Tobacco use fabrice - COPD/ Chronic obstructive pulmonary disease with (acute) exacerbation fabrice - Obesity, unspecified fabrice Forms: - Medication Reconciliation Form fabrice - SBAR form fabrice - Leadership Thank You Letter fabrice Signatures: Dispatcher [employer] EDMS Derrick Santillan MD MD cha Martinez, Eric em1 Joes Izquierdo FNP-C FACILITIES PLANNER-Cla1 Deepali Curry RN RN vc1 Donnell Agrawal RN RN bm8 Corrections: (The following items were deleted from the chart) 01:59 01:59 BASIC METABOLIC PANEL+C.LAB.BRZ ordered. EDMS EDMS 01:59 01:59 CBC+H.LAB.BRZ ordered. EDMS EDMS 01:59 01:59 HEPATIC FUNCTION+C.LAB.BRZ ordered. EDMS EDMS 01:59 01:59 MAGNESIUM+C.LAB.BRZ ordered. EDMS EDMS 01:59 01:59 PROBNP+C.LAB.BRZ ordered. EDMS EDMS 01:59 01:59 PROTIME (+INR)+COAG.LAB.BRZ ordered. EDMS EDMS 01:59 01:59 Troponin High Sensitivity+C.LAB.BRZ ordered. EDMS EDMS 01:59 01:59 Urinalysis+U.LAB.BRZ ordered. EDMS EDMS 01:59 01:59 URINE DRUG SCREEN+UC.LAB.BRZ ordered. EDMS EDMS 01:59 01:59 LACTATE+C.LAB.BRZ ordered. EDMS EDMS 01:59 01:59 BLOOD CULTURE*+BA.LAB.BRZ ordered. EDMS EDMS 02:36 01:58 NS 0.9% IV 1000 ml IV at 125 ml/hr continuous ordered. fabrice fabrice 03:45 02:16 VALPROIC ACID (DEPAKOTE)+C.LAB.BRZ ordered. EDMS EDMS 05:22 04:05 Telemetry/MedSurg (Inpatient) fabrice vc1 05:22 04:05 fabrice vc1 12:39 05:22 [facility] ER HOLD vc1 em1 12:39 05:22 ERHOLD- vc1 em1 13:16 12:39 220 em1 em1
--- NOTE | 2023-11-12 04:06 | ER ---
Nurse's Notes [facility] Name: Heather Coon Age: 53 yrs Sex: Female : 1970 Arrival Date: 11/12/2023 Time: 01:53 Bed 20 Private MD: Diagnosis: Chronic combined systolic (congestive) and diastolic (congestive) heart failure;Anemia, unspecified;Dyspnea;Tobacco abuse counseling;Tobacco use;COPD/ Chronic obstructive pulmonary disease with (acute) exacerbation;Obesity, unspecified Presentation: 11/11 02:02 Chief complaint: Patient states: SOB, not urinating. Coronavirus screen: Client denies vc1 travel out of the [place] in the last 14 days. At this time, the client does not indicate any symptoms associated with coronavirus-19. Ebola Screen: Patient negative for fever greater than or equal to 101.5 degrees Fahrenheit, and additional compatible Ebola Virus Disease symptoms Patient denies exposure to infectious person. Patient denies travel to an Ebola-affected area in the 21 days before illness onset. No symptoms or risks identified at this time. Initial Sepsis Screen: Does the patient meet any 2 criteria? No. Patient's initial sepsis screen is negative. Does the patient have a suspected source of infection? No. Patient's initial sepsis screen is negative. Risk Assessment: Do you want to hurt yourself or someone else? Patient reports no desire to harm self or others. Onset of symptoms was November 12, 2023. 02:02 Method Of Arrival: Ambulatory vc1 02:02 Acuity: ANDER 3 vc1 Triage Assessment: 02:07 General: Appears in no apparent distress. uncomfortable, Behavior is calm, cooperative, vc1 appropriate for age. Pain: Complains of pain in left low back and right low back Pain does not radiate. Pain currently is 10 out of 10 on a pain scale. EENT: No deficits noted. No signs and/or symptoms were reported regarding the EENT system. Respiratory: Reports shortness of breath at rest Airway is patent Respiratory effort is even, unlabored, Respiratory pattern is regular, symmetrical, the patient has mild shortness of breath. : Reports inability to void. 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 N/A - Post-menopause, Not bm8 Historical: - Allergies: 02:04 fluoxetine; vc1 02:04 Green Tea; vc1 02:04 Keppra; not an allergy; vc1 - Home Meds: 02:04 Depakote Oral [Active]; Folic Acid Oral [Active]; Lasix Oral [Active]; lisinopril Oral vc1 [Active]; Metoprolol Tartrate Oral [Active]; - PMHx: 02:04 Anxiety; Arthritis; Bipolar disorder; Cancer-Cervical; Chronic obstructive lung vc1 disease; Chronic pain; Congestive heart failure; Depression; Diverticulitis; Herniated Back Disc; Hypertension; intestinal mass; Myocardial infarction; pt reports hx of seizures; Spastic Muscles; stroke; - PSHx: 02:04 back surgery; cervical fusion; Cholecystectomy; foot; Tonsillectomy; vc1 - Immunization history:: Client reports receiving the 2nd dose of the Covid vaccine, Flu vaccine is not up to date. - Infectious Disease History:: Denies. - Family history:: not pertinent. - Social history:: Smoking status: Patient reports the use of cigarette tobacco products, smokes one-half pack cigarettes per day, Patient uses states stopped using cocaine and ETOH. Screenin:08 [facility] ED Fall Risk Assessment (Adult) History of falling in the last 3 months, vc1 including since admission No falls in past 3 months (0 pts) Confusion or Disorientation No (0 pts) Intoxicated or Sedated No (0 pts) Impaired Gait No (0 pts) Mobility Assist Device Used No (0 pt) Altered Elimination No (0 pt) Score/Fall Risk Level 0 - 2 = Low Risk Oriented to surroundings, Maintained a safe environment, Educated pt \T\ family on fall prevention, incl call for assistance when getting out of bed. Abuse screen: Denies threats or abuse. Nutritional screening: No deficits noted. Tuberculosis screening: No symptoms or risk factors identified. Assessment: 02:36 General: Appears in no apparent distress. Behavior is cooperative. Pain: Complains of tm6 pain in back and right low back Pain does not radiate. Pain currently is 10 out of 10 on a pain scale. Neuro: Level of Consciousness is awake, alert, obeys commands, Oriented to person, place, time, situation. Cardiovascular: Reports shortness of breath, Heart tones S1 S2 Patient's skin is warm and dry. Cardiovascular: Rhythm is sinus tachycardia. Respiratory: Reports shortness of breath at rest Airway is patent Respiratory effort is even, unlabored, Respiratory pattern is regular, symmetrical. GI: Abdomen is round non-distended. GI: No signs and/or symptoms were reported involving the gastrointestinal system. : No signs and/or symptoms were reported regarding the genitourinary system. EENT: No signs and/or symptoms were reported regarding the EENT system. Derm: No signs and/or symptoms reported regarding the dermatologic system. Musculoskeletal: Reports pain in back and right low back Pain is 10 out of 10 on a pain scale. 03:38 Reassessment: No changes from previously documented assessment. tm6 04:09 Reassessment: pt c/o sharp lower back pain, made aware. bm8 04:11 Reassessment: Patient and/or family updated on plan of care and expected duration. Pain bm8 level reassessed. Patient is alert, oriented x 3, equal unlabored respirations, skin warm/dry/pink. Pain: Complains of pain in back and right low back and left low back. Respiratory: Airway is patent Respiratory effort is even, unlabored, Respiratory pattern is regular, symmetrical, Breath sounds are clear bilaterally. Vital Signs: 02:02 BP 146 / 106; Pulse 122; Resp 20; Temp 97; Pulse Ox 97% on R/A; Weight 83.91 kg; Height vc1 5 ft. 3 in. ; 03:38 BP 144 / 102; Pulse 119; Resp 18; Pulse Ox 100% on R/A; tm6 04:11 BP 154 / 104; Pulse 122; Resp 21; Temp 97; Pulse Ox 96% ; Pain 8/10; bm8 02:02 Body Mass Index 32.77 (83.91 kg, 160.02 cm) vc1 04:11 Pain Scale: Adult bm8 [place] Coma Score: 03:04 Eye Response: spontaneous(4). Motor Response: obeys commands(6). Verbal Response: fabrice oriented(5). Total: 15. 04:11 Eye Response: spontaneous(4). Motor Response: obeys commands(6). Verbal Response: bm8 oriented(5). Total: 15. ED Course: 01:54 Patient arrived in ED. fabrice 01:56 Derrick Santillan MD is Attending Physician. fabrice 02:04 Triage completed. vc1 02:07 Arm band placed on right wrist. vc1 02:09 Patient has correct armband on for positive identification. Bed in low position. Pulse vc1 ox on. NIBP on. 02:11 XRAY Chest (1 view) In Process Unspecified. EDMS 02:32 Tawanda Shaw, RN is Primary Nurse. tm6 02:36 Provided Education on: plan of care. Client placed on continuous cardiac and pulse tm6 oximetry monitoring. NIBP monitoring applied. sales contract administrator on. Door closed. Noise minimized. 02:55 Missed attempt(s): 20 gauge in left upper arm. Bleeding controlled, band aid applied, bm8 catheter tip intact. 03:00 No provider procedures requiring assistance completed. Initial lab(s) drawn, by mn, bm8 sent to lab. First set of blood cultures drawn by me, EKG done, by ED staff, reviewed by Derrick Santillan MD. Inserted saline lock: 18 gauge in left EJ, using aseptic technique. Blood collected. 03:15 Second set of blood cultures drawn by me. bm8 03:25 CT Traumagram (Head C Spine CAP wo con) In Process Unspecified. EDMS 03:45 Repositioned patient. Cleaned of incontinence. pt cleaned and placed on purwic. bm8 03:45 Initial Neb Treatment Given as ordered Patient was instructed and evaluated on bm8 procedure Patient tolerated procedure well without adverse effect. 04:03 John Salinas is Hospitalizing Provider. fabrice 05:08 UDS Sent. tm6 05:08 Urinalysis w/ reflexes Sent. tm6 Administered Medications: 02:36 CANCELLED (Duplicate Order): ns 0.9% 1000 ml IV at 125 ml/hr continuous fabrice 03:41 Drug: Furosemide IVP 40 mg IVP once; give over 2 minutes Route: IVP; Site: left jugular;bm8 03:41 Drug: Ondansetron IVP 4 mg IVP once; over 2 minutes Route: IVP; Site: left jugular; bm8 03:42 Drug: Famotidine IVP 20 mg IVP once; dilute with 10 mL 0.9% NaCl; give over 2 minutes bm8 Route: IVP; Site: left jugular; 03:42 Drug: MethylPrednisoLONE IVP 125 mg IVP once Route: IVP; Site: left jugular; bm8 03:42 Drug: Levalbuterol Inhalation 3.75 mg Inhalation once Route: Inhalation; bm8 03:42 Drug: Ipratropium Inhalation Aerosol 0.5 mg Inhalation once Route: Inhalation; bm8 03:42 Drug: levofloxacin IVPB 500 mg 100 ml IVPB once over 60 mins Volume: 100 ml; Route: bm8 IVPB; Infused Over: 60 mins; Site: left jugular; 04:10 Drug: morphine IVP or IV 4 mg IVP once over 4 mins Route: IVP; Infused Over: 4 mins; bm8 Site: left jugular; Medication: 02:08 VIS not applicable for this client. vc1 Output: 05:09 Urine: 800ml (Voided); Total: 800ml. tm6 Outcome: 04:05 Decision to Hospitalize by Provider. fabrice 13:43 Patient left the ED. iw Signatures: Dispatcher [employer] EDMS Derrick Santillan MD MD cha Williams, Irene, RN RN iw Deepali Curry RN RN vc1 Tawanda Shaw RN RN tm6 Donnell Agrawal RN RN bm8 Corrections: (The following items were deleted from the chart) 02:38 02:36 Musculoskeletal: No signs and/or symptoms reported regarding the musculoskeletal tm6 system. tm6 03:43 03:00 Missed attempt(s): 20 gauge in left upper arm. Bleeding controlled, band aid bm8 applied, catheter tip intact. bm8
[2023-11-12] MEDS ORDERED: ACETAMINOPHEN 325 MG TABLET PO PRN (04:57)
[2023-11-12] MEDS ORDERED: LACTULOSE 20 GM/30 ML UCUP PO PRN (05:02)
--- NOTE | 2023-11-12 05:11 | P.HP ---
Certification for Inpatient Patient admitted to: Observation With expected LOS: <2 Midnights Practitioner: I am a practitioner with admitting privileges, knowledge of patient current condition, hospital course, and medical plan of care. Services: Services provided to patient in accordance with Admission requirements found in Title 42 Section 412.3 of the Code of Federal Regulations Patient History Date of Service: 11/12/23 Reason for admission: Shortness of breath History of Present Illness: 53-year-old woman with a history of COPD, coronary artery disease, seizure disorder, history of substance abuse, multiple ED visits and multiple hospitalizations was brought to the emergency department because of sudden onset shortness of breath. Patient stated she woke up in the middle of the night, with sudden shortness of breath, sat at the edge of the bed, symptoms became worse so she presented to the emergency department. Her symptoms suggest orthopnea. Patient was not hypoxic on arrival. CHF exacerbation versus COPD exacerbation suspected. Patient was given bronchodilator treatment, IV antibiotics and IV Lasix. She is hospitalized for further management. Allergies levetiracetam [From [facility]] Allergy (Verified 09/20/23 03:53) Anaphylaxis Green tea Allergy (Mild, Uncoded 09/20/23 03:53) seizures Home Medications: Divalproex Sodium [Depakote] 250 mg PO BID 01/15/23 Fluticasone/Umeclidin/Vilanter [Trelegy Ellipta 100-62.5-25] 1 each IH DAILY 30 Days #30 aero 05/04/23 Furosemide [Lasix*] 40 mg PO DAILY tab 05/19/23 Nitroglycerin [Nitrostat*] 0.4 mg SL UD PRN tab 05/19/23 Ipratropium Neb [Atrovent*] 0.5 mg NEB [id number] #60 amp 09/22/23 Blood Sugar Diagnostic [Test Strips] 1 each MC DAILY #100 strip 09/29/23 Blood-Glucose Meter [Glucocard Shine Connex Meter] 1 each MC DAILY #1 ea 09/29/23 Lancets [Glucocom Lancets] 1 each MC BID #100 ea 09/29/23 Metformin HCl 500 mg PO DAILY #30 tab 09/29/23 carvediloL [Carvedilol] 12.5 mg PO BID #60 tab 09/29/23 Aspirin 81 mg PO DAILY 11/03/23 Atorvastatin Calcium 20 mg PO DAILY 11/03/23 Duloxetine [Cymbalta *] 20 mg PO DAILY 11/03/23 Lactulose 30 ml PO TID PRN 11/03/23 - Past Medical/Surgical History Diabetic: No -: COPD -: Hypertension -: migraines -: Depression with anxiety -: Pancreatitis -: Coronary artery disease-prior myocardial infarction -: Diverticulitis -: Seizure disorder -: Herniated back disc -: Diverticulitis -: Herniated back disc -: history of seizures -: 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 -: cholecystectomy -: 5 hand surgeries -: tonsilectomy Psychosocial/ Personal History: Lives at home with her boyfriend - Family History Father -: Hypertension, Other (see notes) Notes: No premature coronary disease Mother -: Heart disease, Hypertension, GI disease, Diabetes, Liver disease, Kidney disease - Social History Alcohol use: Yes CD- Drugs: Yes Caffeine use: No Review of Systems Other: She denied any chest pain, denied any abdominal pain or nausea or vomiting or diarrhea. Except as documented, all other systems reviewed and negative. Physical Examination - Physical Exam General: Alert, In no apparent distress, Oriented x3, Obese HEENT: Normocephalic, Mucous membr. moist/pink, Sclerae nonicteric Neck: Supple, JVD not distended Respiratory: Diminished, Crackles/rales (Diffuse Rales), Other Cardiovascular: No edema, Regular rate/rhythm, Normal S1 S2 Gastrointestinal: Normal bowel sounds, Soft and benign, Non-distended, No ten derness Musculoskeletal: No swelling, No tenderness Integumentary: No rashes, No cyanosis Neurological: Normal strength at 5/5 x4 extr, Cranial nerves 3-12 intact Lymphatics: No axilla or inguinal lymphadenopathy - Studies Laboratory Data (last 24 hrs) 11/12/23 11/12/23 11/12/23 03:00 03:00 03:00 WBC 7.40 Hgb 8.3 L Hct 27.2 L Plt Count 401 PT 17.5 H INR 1.61 Sodium 139 Potassium 3.6 BUN 13 Creatinine 0.76 Glucose 121 H Magnesium 2.1 Total Bilirubin 0.5 AST 61 H ALT 67 H Alkaline Phosphatase 231 H Assessment and Plan - Problems (Diagnosis) (1) Acute on chronic diastolic heart failure Current Visit: Yes Status: Acute (2) COPD exacerbation Current Visit: No Status: Acute (3) CAD (coronary artery disease) Current Visit: No Status: Chronic Qualifiers: Coronary Disease-Associated Artery/Lesion type: unspecified vessel or lesion type [place] vs. transplanted heart: [place] heart Associated angina: with unstable angina Qualified Code(s): I25.110 - Atherosclerotic heart disease of [place] coronary artery with unstable angina pectoris (4) Epilepsy Current Visit: No Status: Chronic Qualifiers: Epilepsy type: due to external causes Intractability: not intractable Status epilepticus: without status epilepticus Qualified Code(s): G40.509 - Epileptic seizures related to external causes, not intractable, without status epilepticus - Plan Acute on chronic systolic heart failure Patient's symptoms consistent with orthopnea, paroxysmal nocturnal dyspnea. CT chest suggests pulmonary vascular congestion. Placed under observation on the medical floor IV Lasix Monitor intake and output. Most recent echocardiogram showed EF of 35 to 40%. COPD exacerbation Treated with bronchodilators, IV steroid. History of polysubstance abuse Urine toxicology screen is pending. Epilepsy Continue home dose Depakote. DVT prophylaxis: Heparin SQ - Advance Directives Does patient have a Living Will: No Does patient have a Durable POA for Healthcare: No
[2023-11-12 05:22] LABS: Anisocytosis 2+; Blood Morphology Comment NOTED (NOT SEEN); Microcytosis 1+
[2023-11-12 05:23] LABS: Platelet Estimate ADEQ; White Blood Cell Scan OK (OK)
[2023-11-12 05:29] LABS: Barbiturates NEGATIVE (NEGATIVE); Benzodiazepines NEGATIVE (NEGATIVE); Cocaine NEGATIVE (NEGATIVE); METHAMPHETAM NEGATIVE (NEGATIVE); Methadone NEGATIVE (NEGATIVE); Opiates POSITIVE (NEGATIVE); Phencyclidine NEGATIVE (NEGATIVE); THC Cannibis NEGATIVE (NEGATIVE)
[2023-11-12 05:56] VITALS: BMI 32.8
[2023-11-12 06:06] LABS: Specific Gravity 1.008 (1.005-1.030); Sqamous Epithelial <5 /HPF (None Seen); Urine Bacteria None Seen /HPF (<20); Urine Bilirubin NEGATIVE (Negative); Urine Blood 2+ (Negative); Urine Clarity Clear (Clear); Urine Color Colorless (Yellow); Urine Culture Reflex Order NOT NEEDED; Urine Glucose NEGATIVE (Negative); Urine Ketones NEGATIVE (Negative); Urine Microscopic Reflex YN ORDER UMIC; Urine Nitrite NEGATIVE (Negative); Urine Protein TRACE (Negative); Urine RBC None Seen /HPF (None Seen); Urine Urobilinogen Normal (Normal); Urine WBC <5 /HPF (<5)
[2023-11-12] MEDS: ONDANSETRON 4 MG/2 ML VIAL IV PRN (06:50)
[2023-11-12] MEDS ORDERED: ASPIRIN 81 MG CHEWABLE TABLET ONE (07:42)
[2023-11-12] MEDS ORDERED: DIVALPROEX DR 250 MG TAB PO ONE (07:42)
[2023-11-12] MEDS ORDERED: ATORVASTATIN 20 MG TAB ONE (07:42)
[2023-11-12] MEDS ORDERED: carvediloL 6.25 MG TAB ONE (07:43)
[2023-11-12] MEDS ORDERED: HEPARIN 5000 UNIT/ML 1 ML VIAL ONE (07:43)
[2023-11-12] MEDS ORDERED: METHYLPREDNISOLONE 40 MG INJ ONE (07:43)
--- NOTE | 2023-11-12 08:01 | P.PN ---
Date of Service: 11/12/23 Subjective: still feeling short of breath / dyspneic no new/worsening symptoms having to take breaks while eating to catch breath no fever/chills has been having difficulty getting back on track since her surgery last year ROS: 10 point ROS as noted above, otherwise negative Physical Exam: GEN: Alert, oriented, short of breath, tearful HEENT: Normal conjunctiva, sclera anicteric, CV: Sinus Tachycardia HR in 110s, trace b/l pedal edema Pulm: labored respirations on room air, diminished at bases b/l ABD: soft, nontender, nondistended Neuro: Normal speech, normal affect Problem List: Acute COPD exacerbation vs Acute on chronic systolic CHF Multifocal RUL nodular pulmonary opacties Suspected tiny meningioma 6mm Seizure disorder Hypertension Chronic back/neck pain Anxiety/Depression/Bipolar disorder hx mild non-obstructive CAD hx polysubstance abuse hx cervical cancer hx prior CVA Acute COPD exacerbation vs Acute on chronic systolic CHF Multifocal RUL nodular pulmonary opacties Reports sudden onset shortness of breath when woken up in the middle of night. suggestive of orthopnea, paroxysmal nocturnal dyspnea. Not hypoxic on arrival. CXR (11/11): diffuse bilateral interstitial airspace disease, mildly progressed compared to prior study. Unchanged enlarged cardiac silhouette CT head/chest/abd (11/11): likely 6mm tiny meningioma along right anterior falx, unchanged multifocal nodular opacities in RUL from 10/31/2023. inflammatory vs infectious hepatomegaly with nodular contour, right-sided nephrolithiasis, colonic diverticulosis, Prior ACDF spanning C3-C7 f/u CT recommended in 3 months to ensure resolution/improvement of opacities Prior recent echo (11/03/23): 39%EF, moderate global hypokinesis, moderate MR, mild-mod AI Recent heart cath 06/2023 showed mild non-obstructive CAD Troponin negative, BNP 9k, Dr. Moore, Pulm consulted continue IV steroids, duonebs, home trelegy Continue IV lasix 40 mg BID Seizure disorder Hypertension Chronic back/neck pain Anxiety/Depression/Bipolar disorder hx mild non-obstructive CAD hx polysubstance abuse hx cervical cancer hx prior CVA confirm home meds, restart as appropriate restart home klonopin continue home depakote fell a few days ago, states secondary to seizure, resulting in rib pain. tylenol #3 ordered. lidocaine patch VTE: heparin sq Code: Full Dispo: Home, ~1-2 days Pending further workup / improvement
[2023-11-12] MEDS: IPRATROPIUM BROM 0.5MG/2.5ML NEB SCH (08:23)
[2023-11-12] MEDS: ALBUTEROL 2.5 MG/3 ML NEB SOL NEB SCH (08:24)
[2023-11-12] MEDS ORDERED: CODEINE 30MG/APAP 300MG TAB PO PRN (08:32)
[2023-11-12] MEDS: DIVALPROEX DR 250 MG TAB PO SCH (09:00)
[2023-11-12] MEDS: DULOXETINE 20 MG CAP PO SCH (09:00)
[2023-11-12] MEDS: METHYLPREDNISOLONE 40 MG INJ IV SCH (09:00)
[2023-11-12] MEDS: ATORVASTATIN 20 MG TAB PO SCH (09:00)
[2023-11-12] MEDS: FUROSEMIDE 40 MG/4 ML VIAL IV SCH (09:00)
[2023-11-12] MEDS: HEPARIN 5000 UNIT/ML 1 ML VIAL SQ SCH (09:00)
[2023-11-12] MEDS: carvediloL 6.25 MG TAB PO SCH (09:00)
[2023-11-12] MEDS: HOME MED 1 EA UNK (Fluticasone/Umeclidin/Vilanter [Trelegy Ellipta 100-62.5-25] Blst.W.Dev IH SCH (09:00)
[2023-11-12] MEDS: ASPIRIN 81 MG CHEWABLE TABLET PO SCH (09:00)
[2023-11-12] MEDS ORDERED: CODEINE 30MG/APAP 300MG TAB ONE (09:08)
--- NOTE | 2023-11-12 10:25 | RAD REPORT ---
EXAM DESCRIPTION: Head C Spine Cap Wo Con RadLex: CT HEAD CERVICAL SPINE CHEST ABDOMEN PELVIS WITHOUT IV CONTRAST CLINICAL HISTORY: 53 years Female; Pain;Trauma; Bed Name: 2 TECHNIQUE: Noncontrast CT head and cervical spine. CT chest, abdomen and pelvis without contrast. All CT scans at this facility use dose modulation, iterative reconstruction, and/or weight based dosi ng when appropriate to reduce radiation dose to as low as reasonably achievable. COMPARISON: CT head and cervical spine 11/09/2023. CT chest abdomen pelvis 10/31/2023. FINDINGS: BRAIN: Parenchyma: No acute hemorrhage, large territorial infarction, or mass effect. Ventricles and extra-axial spaces: Appropriate for age. Unchanged tiny extra-axial ovoid hyperdense l esion in the right anterior falx measuring 6 mm (series 201, image 22), likely tiny meningioma. Visualized paranasal sinuses: Clear. Mastoid air cells: Clear. Bones: No acute focal abnormality. Additional comment: Intracranial atherosclerosis. CERVICAL SPINE: Surgical changes: Anterior cervical discectomy and fusion at C3-C4 and C4-C7. Hardware is intact with unchanged alignment from prior CT. No surrounding hardware lucency. Alignment: Normal. Vertebrae: Vertebral bodies and posterior elements are intact without acute fracture. Multilevel dege nerative changes. Extra-vertebral soft tissues: Normal. Additional comment: Multiple right-sided laryngoceles again noted, unchanged. CHEST: Exam limited due to lack of intravenous contrast. Lower neck/mediastinum: No mediastinal hematoma. Mild cardiomegaly. Coronary artery calcifications. Thoracic aortic atherosclerosis. Lungs/Airways/pleura: No pneumothorax. No pleural effusion. Minimal bilateral dependent reticular opacities, likely atelectasis. Left upper lobe calcified granuloma. Multifocal nodular opacities again seen in the right upper lobe, grossly unchanged from 10/31/2023. Mild bilateral interlobular septal thickening. Bones and soft tissues: No acute rib fracture. Sternum is intact. No acute thoracic spine fracture. ABDOMEN/PELVIS: Abdomen: Stomach: Within normal limits Liver: No focal lesions. Enlarged. Nodular contour. No intrahepatic ductal distention. Gallbladder: Surgically absent. Pancreas: Within normal limits Spleen: Within normal limits Right kidney: No hydronephrosis. 2 mm renal stone. Left kidney: No hydronephrosis. No focal lesion. Adrenal glands: Unchanged left adrenal lesion measuring 2.5 cm, likely adenoma. Vascular structures: Atherosclerosis of the abdominal aorta and major branches. Nodes: No lymphadenopathy by size criteria Pelvis: Small bowel: No significant distention. Appendix: Within normal limits Colon: No distention or acute pericolonic edema. Colonic diverticulosis. Peritoneum: No free intraperitoneal fluid or air. Bones: No acute bone findings.. Degenerative changes of the lumbar spine. Laminectomy changes at L4. Bladder: Unremarkable. Reproductive organs: No acute findings. IMPRESSION: 1. No acute traumatic intracranial findings. Unchanged 6 mm ovoid extra-axial hyperden se lesion along the right anterior falx, likely meningioma. Recommend nonemergent contrast enhanced M R brain. 2. No acute cervical spine fracture. Prior ACDF spanning C3-C7. No acute hardware complication. 3. No acute traumatic thoracic, abdominal, or pelvic findings. 4. Unchanged multifocal nodular opacities in the right upper lobe, grossly unchanged from 10/31/2023 . Findings could represent infectious/inflammatory etiology. Follow-up to resolution is recommended. Recommend follow-up CT chest in 3 months. 5. Hepatomegaly with nodular contour, can be seen in setting of cirrhosis. 6. Right-sided nephrolithiasis. 7. Colonic diverticulosis. Electronically signed by: Sami Cheatham MD 11/12/2023 05:35 AM CDT Due to temporary technical issues with the PACS/Fluency reporting system, reports are being signed by the in house radiologist without review as a courtesy to ensure prompt reporting. The interpreting r adiologist is fully responsible for the content of the report.
--- NOTE | 2023-11-12 10:43 | RAD REPORT ---
EXAM DESCRIPTION: Chest Single View CLINICAL HISTORY: DYSPNEA COMPARISON: Chest x-ray 11/03/2023. TECHNIQUE: Single AP view of the chest. FINDINGS: Lung volumes adequate. Cardiac silhouette is enlarged, unchanged. No pneumothorax. No large pleural effusion. Diffuse bilateral interstitial airspace disease, mildly progressed. No acute bony finding. Partially visualized cervical spine hardware. IMPRESSION: 1. Diffuse bilateral interstitial airspace disease, mildly progressed compared to prio r exam. 2. Unchanged enlarged cardiac silhouette. Electronically signed by: Sami Cheatham MD 11/12/2023 03:16 AM CDT Due to temporary technical issues with the PACS/Fluency reporting system, reports are being signed by the in house radiologist without review as a courtesy to ensure prompt reporting. The interpreting r adiologist is fully responsible for the content of the report.
[2023-11-12] MEDS ORDERED: ALBUTEROL 2.5 MG/3 ML NEB SOL ONE (13:20)
--- NOTE | 2023-11-12 13:35 | P.CNS ---
Date of Consult: 11/12/23 Reason for Consult: COPD exacerbation Chief Complaint: Shortness of breath History of Present Illness: Patient is 53 years of age with a history of COPD recurrent hospital admissions came in to the hospital again complaining of worsening dyspnea cough congestion for the past 2 weeks in addition to lower extremity edema and is compliant with all her inhalers and bronchodilators patient has difficulty ambulating Allergies levetiracetam [From Kera] Allergy (Verified 09/20/23 03:53) Anaphylaxis Green tea Allergy (Mild, Uncoded 09/20/23 03:53) seizures Home Medications: Divalproex Sodium [Depakote] 500 mg PO BID 01/15/23 Fluticasone/Umeclidin/Vilanter [Trelegy Ellipta 100-62.5-25] 1 each IH DAILY 30 Days #30 aero 05/04/23 Furosemide [Lasix*] 40 mg PO DAILY tab 05/19/23 Nitroglycerin [Nitrostat*] 0.4 mg SL UD PRN tab 05/19/23 Ipratropium Neb [Atrovent*] 0.5 mg NEB [id number] #60 amp 09/22/23 Blood Sugar Diagnostic [Test Strips] 1 each MC DAILY #100 strip 09/29/23 Blood-Glucose Meter [Glucocard Shine Connex Meter] 1 each MC DAILY #1 ea 09/29/23 Lancets [Glucocom Lancets] 1 each MC BID #100 ea 09/29/23 Metformin HCl 500 mg PO DAILY #30 tab 09/29/23 carvediloL [Carvedilol] 12.5 mg PO BID #60 tab 09/29/23 Aspirin 81 mg PO DAILY 11/03/23 Atorvastatin Calcium 20 mg PO DAILY 11/03/23 Duloxetine [Cymbalta *] 20 mg PO DAILY 11/03/23 Lactulose 30 ml PO TID PRN 11/03/23 - Past Medical/Surgical History Diabetic: No -: COPD -: Hypertension/congestive heart failure -: migraines -: Depression with anxiety -: Pancreatitis -: Coronary artery disease-prior myocardial infarction -: Diverticulitis -: Seizure disorder -: Herniated back disc -: Diverticulitis -: Herniated back disc -: history of seizures -: 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 -: cholecystectomy -: 5 hand surgeries -: tonsilectomy Psychosocial/ Personal History: Lives at home with her boyfriend - Family History Father Medical History: Hypertension, Other (see notes) Notes: No premature coronary disease Mother Medical History: Heart disease, Hypertension, GI disease, Diabetes, Liver disease, Kidney disease - Social History Smoking Status: Current every day smoker Alcohol use: Yes CD- Drugs: Yes Caffeine use: No Place of Residence: Home Review of Systems Unremarkable General: Weakness Respiratory: Cough, Shortness of Breath Cardiovascular: Edema Physical Examination Temp Pulse Resp BP Pulse Ox 115 H 20 148/98 H 96 11/12/23 09:00 11/12/23 08:00 11/12/23 09:00 11/12/23 08:00 General: Alert, In no apparent distress, Oriented x3 Neck: Supple Respiratory: Clear to auscultation bilaterally, Diminished Cardiovascular: No edema, Normal pulses, Regular rate/rhythm Gastrointestinal: Normal bowel sounds, Soft and benign, Non-distended Laboratory Data (last 24 hrs) 11/12/23 11/12/23 11/12/23 03:00 03:00 03:00 WBC 7.40 Hgb 8.3 L Hct 27.2 L Plt Count 401 PT 17.5 H INR 1.61 Sodium 139 Potassium 3.6 BUN 13 Creatinine 0.76 Glucose 121 H Magnesium 2.1 Total Bilirubin 0.5 AST 61 H ALT 67 H Alkaline Phosphatase 231 H - Problems (1) Acute on chronic combined systolic and diastolic heart failure Current Visit: No Status: Acute Plan: Patient is 53 years of age with a history of congestive heart failure admitted with worsening lower extremity edema/BNP is over 8000 chest x-ray is consistent with congestive heart failure and is on Lasix at home add spironolactone (2) COPD (chronic obstructive pulmonary disease) Current Visit: No Status: Acute Plan: Patient has a history of COPD uses her 's oxygen compliant with her inhalers patient's lactic acid is mildly elevated urinalysis is negative blood pressure satisfactory normal room air saturation heart oxygen Qualifiers: COPD type: unspecified COPD Qualified Code(s): J44.9 - Chronic obstructive pulmonary disease, unspecified (3) Abnormal CT scan, chest Current Visit: Yes Status: Acute Plan: Patient has multifocal opacities in the right lung unchanged from the chest CT that was done recently add Augmentin for the possibility of an infection will need a follow-up CT scan high risk for lung cancer Recent CT scan done No acute traumatic intracranial findings. Unchanged 6 mm ovoid extra-axial hyperdense lesion along the right anterior falx, likely meningioma. Recommend nonemergent contrast enhanced MR brain. 2. No acute cervical spine fracture. Prior ACDF spanning C3-C7. No acute hardware complication. 3. No acute traumatic thoracic, abdominal, or pelvic findings. 4. Unchanged multifocal nodular opacities in the right upper lobe, grossly unchanged from 10/31/2023. Findings could represent infectious/inflammatory etiology. Follow-up to resolution is recommended. Recommend follow-up CT chest in 3 months. 5. Hepatomegaly with nodular contour, can be seen in setting of cirrhosis. 6. Right-sided nephrolithiasis. 7. Colonic diverticulosis
[2023-11-12] MEDS: SPIRONOLACTONE 25 MG TABLET PO SCH (14:21)
[2023-11-12] MEDS: ENOXAPARIN 40 MG/0.4 ML SQ SCH (14:32)
[2023-11-12] MEDS: CODEINE 30MG/APAP 300MG TAB PO PRN (18:11)
[2023-11-12] MEDS ORDERED: AMOX/K CLAV 500 MG TAB PO SCH (21:00)
[2023-11-12] MEDS: clonazePAM 0.5 MG TAB PO PRN (21:47)
[2023-11-12] MEDS: AMOX/K CLAV 875 MG TAB PO SCH (21:47)
[2023-11-12] MEDS: predniSONE 20 MG TAB PO SCH (21:47)
[2023-11-12] MEDS: LIDOCAINE 4% PATCH TOP SCH (21:50)
[2023-11-13 03:39] LABS: Absolute Lymphocytes (CBC) 0.9 K/uL (0.7-4.9); Absolute Monocytes 0.4 K/uL (0.1-1.3); Absolute Neutrophil 4.5 K/uL (1.8-8.0); Basophils % 0.2 % (0-1.3); Hematocrit 25.7 % (36.0-45.0); Hemoglobin 8.3 g/dL (12.0-15.0); Lymphocytes % 15.2 % (15.3-44.8); MCH 26.3 pg (27.0-35.0); MCHC 32.3 g/dL (32.0-36.0); MCV 81.5 fL (80-100); MPV 7.6 fL (7.6-11.3); Monocytes % 6.9 % (3.3-12.3); Neutrophils % 77.7 % (41.7-73.7); Nucleated RBC Absolute Count 0.1 (0-0); Nucleated Red Blood Cells % 0.8 % (0-0); Platelets 323 thou/uL (152-406); RBC Red Blood Cell Count 3.16 M/uL (3.86-4.86); Red Cell Distribution Width 22.5 % (12.1-15.2)
[2023-11-13 04:00] LABS: Anion Gap 8.1 mEq/L (5.0-15.0); Magnesium 2.1 mg/dL (1.6-2.4); Phosphorus 3.2 mg/dL (2.5-4.9); Potassium 4.1 mEq/L (3.5-5.1)
--- NOTE | 2023-11-13 09:12 | P.PN ---
Date of Service: 11/13/23 Subjective: did well overnight. able to sleep throughout the night ~5:50 am patient reported sudden onset chest pain / pressure when readjusting herself after waking up. +hard to catch her breath SPO2 > 92% on room air at time of episode. Placed on 2L NC briefly for comfort sat 100% on 2L Feels breathing improves with oxygen / staying at rest for 5-10 minutes. Worsened with light exertion / movement / talking Reports intermittent ongoing nausea for ~1 year. Doesn't think food/meds makes it worse. ROS: 10 point ROS as noted above, otherwise negative Physical Exam: GEN: Alert, oriented, short of breath, anxious HEENT: Normal conjunctiva, sclera anicteric, CV: Sinus Tachycardia HR in 90-100s, trace-1 b/l pedal edema Pulm: labored respirations on room air, diminished at bases b/l ABD: soft, nontender, nondistended Neuro: Normal speech, normal affect Problem List: Acute COPD exacerbation vs Acute on chronic systolic CHF vs pneumonia Multifocal RUL nodular pulmonary opacties Suspected tiny meningioma 6mm Seizure disorder Hypertension Chronic back/neck pain Anxiety/Depression/Bipolar disorder hx mild non-obstructive CAD hx polysubstance abuse hx cervical cancer hx prior CVA Acute COPD exacerbation vs Acute on chronic systolic CHF vs pneumonia Multifocal RUL nodular pulmonary opacties Reports sudden onset shortness of breath when woken up in the middle of night. suggestive of orthopnea, paroxysmal nocturnal dyspnea. Not hypoxic on arrival. CXR (11/11): diffuse bilateral interstitial airspace disease, mildly progressed compared to prior study. Unchanged enlarged cardiac silhouette CT head/chest/abd (11/11): likely 6mm tiny meningioma along right anterior falx, unchanged multifocal nodular opacities in RUL from 10/31/2023. inflammatory vs infectious hepatomegaly with nodular contour, right-sided nephrolithiasis, colonic diverticulosis, Prior ACDF spanning C3-C7 f/u CT recommended in 3 months to ensure resolution/improvement of opacities reported chest pain overnight / early this mornign Prior recent echo (11/03/23): 39%EF, moderate global hypokinesis, moderate MR, mild-mod AI Recent heart cath 06/2023 showed mild non-obstructive CAD Troponin negative, BNP 9k Dr. Moore, Pulm consulted spironolactone added (11/11) added empiric PO augmentin (11/11-) and azithromycin (11/12-) to cover possible infection/pneumonia continue duonebs, home trelegy IV steroids deescalated to PO prednisone (11/11) Continue IV lasix 40 mg BID ~5:50 am patient reported sudden onset chest pain / pressure. hard to catch her breath SPO2 > 92% on room air at time of episode. Placed on 2L NC briefly for comfort; sat 100% on 2L repeat stat troponin negative. EKG reviewed and was okay. Cardiology consulted Seizure disorder Hypertension Chronic back/neck pain Anxiety/Depression/Bipolar disorder hx mild non-obstructive CAD hx polysubstance abuse hx cervical cancer hx prior CVA confirm home meds, restart as appropriate restart home klonopin 0.5 mg BID as needed continue home depakote fell a few days ago, states secondary to seizure, resulting in rib pain. tylenol #3 ordered. lidocaine patch VTE: heparin sq switched to lovenox 11/11 Code: Full Dispo: Home, ~1-2 days Pending further workup / improvement
[2023-11-13] MEDS: FAMOTIDINE 20 MG TAB PO SCH (09:42)
--- NOTE | 2023-11-13 10:00 | P.PN ---
Subjective Date of Service: 11/13/23 Chief Complaint: Shortness of breath Subjective: Improving (Is doing better slept well all last night however she woke up this morning very short of breath and able to move even in her bed any fever or chills) Review of Systems General: Weakness Respiratory: Shortness of Breath Physical Examination - Vital Signs Temperature: 98.9 F Blood Pressure: 102/73 Pulse: 97 Respirations: 18 Pulse Ox (%): 100 - Physical Exam General: Alert, In no apparent distress, Oriented x3 Respiratory: Clear to auscultation bilaterally, Diminished Cardiovascular: No edema, Normal pulses, Regular rate/rhythm, Normal S1 S2 Assessment And Plan - Current Problems (Diagnosis) (1) Acute on chronic combined systolic and diastolic heart failure Current Visit: No Status: Acute Plan: He is currently is stable continue with present medication labs chemistries reviewed (2) COPD (chronic obstructive pulmonary disease) Current Visit: No Status: Acute Plan: COPD continue with bronchodilator add azithromycin for anti-inflammatory purposes condition satisfactory on room Qualifiers: COPD type: unspecified COPD Qualified Code(s): J44.9 - Chronic obstructive pulmonary disease, unspecified (3) Abnormal CT scan, chest Current Visit: Yes Status: Acute Plan: Patient has multifocal opacities in the right lung unchanged from the chest CT that was done recently add Augmentin for the possibility of an infection will need a follow-up CT scan high risk for lung cancer Recent CT scan done No acute traumatic intracranial findings. Unchanged 6 mm ovoid extra-axial hyperdense lesion along the right anterior falx, likely meningioma. Recommend nonemergent contrast enhanced MR brain. 2. No acute cervical spine fracture. Prior ACDF spanning C3-C7. No acute hardware complication. 3. No acute traumatic thoracic, abdominal, or pelvic findings. 4. Unchanged multifocal nodular opacities in the right upper lobe, grossly unchanged from 10/31/2023. Findings could represent infectious/inflammatory etiology. Follow-up to resolution is recommended. Recommend follow-up CT chest in 3 months. 5. Hepatomegaly with nodular contour, can be seen in setting of cirrhosis. 6. Right-sided nephrolithiasis. 7. Colonic diverticulosis
[2023-11-13] MEDS: AZITHROMYCIN 250 MG TAB PO SCH (10:28)
[2023-11-13] MEDS: clonazePAM 0.5 MG TAB PO PRN (10:35)
--- NOTE | 2023-11-13 16:53 | P.CNS ---
Date of Consult: 11/13/23 Chief Complaint: Shortness of breath History of Present Illness: Patient with PMH of mild AD, Systolic heart failure, COPD presented with generalized fatigue and body aches, she also mention having chest pain that is atypical and SOB. Allergies levetiracetam [From Kera] Allergy (Verified 09/20/23 03:53) Anaphylaxis Green tea Allergy (Mild, Uncoded 09/20/23 03:53) seizures Home Medications: Divalproex Sodium [Depakote] 500 mg PO BID 01/15/23 Fluticasone/Umeclidin/Vilanter [Trelegy Ellipta 100-62.5-25] 1 each IH DAILY 30 Days #30 aero 05/04/23 Furosemide [Lasix*] 40 mg PO DAILY tab 05/19/23 Nitroglycerin [Nitrostat*] 0.4 mg SL UD PRN tab 05/19/23 Ipratropium Neb [Atrovent*] 0.5 mg NEB [id number] #60 amp 09/22/23 Blood Sugar Diagnostic [Test Strips] 1 each MC DAILY #100 strip 09/29/23 Blood-Glucose Meter [Glucocard Shine Connex Meter] 1 each MC DAILY #1 ea 09/29/23 Lancets [Glucocom Lancets] 1 each MC BID #100 ea 09/29/23 Metformin HCl 500 mg PO DAILY #30 tab 09/29/23 carvediloL [Carvedilol] 12.5 mg PO BID #60 tab 09/29/23 Aspirin 81 mg PO DAILY 11/03/23 Atorvastatin Calcium 20 mg PO DAILY 11/03/23 Duloxetine [Cymbalta *] 20 mg PO DAILY 11/03/23 Lactulose 30 ml PO TID PRN 11/03/23 clonazePAM [Clonazepam] 0.5 tab PO Q8H PRN 11/13/23 - Past Medical/Surgical History Diabetic: No -: COPD -: Hypertension/congestive heart failure -: migraines -: Depression with anxiety -: Pancreatitis -: Coronary artery disease-prior myocardial infarction -: Diverticulitis -: Seizure disorder -: Herniated back disc -: Diverticulitis -: Herniated back disc -: history of seizures -: 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 -: cholecystectomy -: 5 hand surgeries -: tonsilectomy Psychosocial/ Personal History: Lives at home with her boyfriend - Family History Father Medical History: Hypertension, Other (see notes) Notes: No premature coronary disease Mother Medical History: Heart disease, Hypertension, GI disease, Diabetes, Liver disease, Kidney disease - Social History Smoking Status: Current every day smoker Alcohol use: Yes CD- Drugs: Yes Caffeine use: No Place of Residence: Home Review of Systems 10-point ROS is otherwise unremarkable Physical Examination Temp Pulse Resp BP Pulse Ox 97.9 F 98 H 18 112/85 97 11/13/23 12:00 11/13/23 12:00 11/13/23 13:34 11/13/23 12:00 11/13/23 13:34 General: Alert, Oriented x3 HEENT: Atraumatic Neck: Supple Respiratory: Clear to auscultation bilaterally Cardiovascular: No edema, Normal S1 S2 Gastrointestinal: Normal bowel sounds - Problems (1) Chronic systolic (congestive) heart failure Current Visit: Yes Status: Acute Plan: Patient looks euvolemic on exam Continue Coref 12.5 mg po BID Continue Aldactone 25 mg daily (2) Chest pain Current Visit: No Status: Acute Plan: non cardiac, patient had a recent coronary angiogram that shows mild CAD. No need for further cardiac work up. (3) Hypertension Current Visit: No Status: Chronic Plan: Continue medications as above. Qualifiers: Hypertension type: primary hypertension Qualified Code(s): I10 - Essential (primary) hypertension
[2023-11-14 04:45] LABS: Absolute Lymphocytes (CBC) 1.6 K/uL (0.7-4.9); Absolute Monocytes 0.5 K/uL (0.1-1.3); Absolute Neutrophil 6.9 K/uL (1.8-8.0); Basophils % 0.3 % (0-1.3); Eosinophils % 0.1 % (0-4.4); Hematocrit 27.7 % (36.0-45.0); Hemoglobin 8.8 g/dL (12.0-15.0); Lymphocytes % 17.2 % (15.3-44.8); MCH 26.1 pg (27.0-35.0); MCHC 31.6 g/dL (32.0-36.0); MCV 82.6 fL (80-100); MPV 8.3 fL (7.6-11.3); Neutrophils % 76.4 % (41.7-73.7); Nucleated RBC Absolute Count 0.3 (0-0); Nucleated Red Blood Cells % 2.7 % (0-0); Platelets 347 thou/uL (152-406); RBC Red Blood Cell Count 3.36 M/uL (3.86-4.86); Red Cell Distribution Width 22.8 % (12.1-15.2)
[2023-11-14 05:02] LABS: Anion Gap 11.8 mEq/L (5.0-15.0); Magnesium 2.4 mg/dL (1.6-2.4); Potassium 4.8 mEq/L (3.5-5.1)
--- NOTE | 2023-11-14 11:17 | P.PN ---
Subjective Date of Service: 11/14/23 Chief Complaint: OPD exacerbation He is not doing well still complaining of shortness of breath chest congestion very weak still short of breath on minimal exertion Review of Systems General: Weakness Respiratory: Cough, Shortness of Breath Physical Examination - Vital Signs Temperature: 96.9 F Blood Pressure: 105/82 Pulse: 90 Respirations: 17 Pulse Ox (%): 100 - Physical Exam General: Alert, Oriented x3 Respiratory: Clear to auscultation bilaterally, Diminished Cardiovascular: No edema, Regular rate/rhythm, Normal S1 S2 Gastrointestinal: Normal bowel sounds Musculoskeletal: No clubbing, No swelling Assessment And Plan - Current Problems (Diagnosis) (1) Acute on chronic combined systolic and diastolic heart failure Current Visit: No Status: Acute Plan: He is currently is stable continue with present medication labs chemistries reviewed (2) COPD (chronic obstructive pulmonary disease) Current Visit: No Status: Acute Plan: Patient is not improving added Daliresp complaining of chest congestion and Jover to high-dose levofloxacin combination of Bactrim sputum cultures Qualifiers: COPD type: unspecified COPD Qualified Code(s): J44.9 - Chronic obstructive pulmonary disease, unspecified (3) Abnormal CT scan, chest Current Visit: Yes Status: Acute Plan: Patient has multifocal opacities in the right lung unchanged from the chest CT that was done recently add Augmentin for the possibility of an infection will need a follow-up CT scan high risk for lung cancer Recent CT scan done No acute traumatic intracranial findings. Unchanged 6 mm ovoid extra-axial hyperdense lesion along the right anterior falx, likely meningioma. Recommend nonemergent contrast enhanced MR brain. 2. No acute cervical spine fracture. Prior ACDF spanning C3-C7. No acute hardware complication. 3. No acute traumatic thoracic, abdominal, or pelvic findings. 4. Unchanged multifocal nodular opacities in the right upper lobe, grossly uncha nged from 10/31/2023. Findings could represent infectious/inflammatory etiology. Follow-up to resolution is recommended. Recommend follow-up CT chest in 3 months. 5. Hepatomegaly with nodular contour, can be seen in setting of cirrhosis. 6. Right-sided nephrolithiasis. 7. Colonic diverticulosis
[2023-11-14] MEDS: levoFLOXacin 250 MG TAB PO SCH (11:33)
[2023-11-14] MEDS: ROFLUMILAST 500 MCG TABLET PO SCH (11:33)
--- NOTE | 2023-11-14 12:57 | P.PN ---
Date of Service: 11/14/23 Subjective: Not much better today report some dyspnea worsened with exertion; improving compared to how she felt on admission, but still not much different reports continues to smoke cigarettes but trying to quit. Cessation advised worked with PT yesterday afebrile ROS: 10 point ROS as noted above, otherwise negative Physical Exam: GEN: Alert, oriented, short of breath, anxious HEENT: Normal conjunctiva, sclera anicteric, CV: normal rate & rhythm, trace-1 b/l pedal edema Pulm: labored respirations on room air, diminished at bases b/l ABD: soft, nontender, nondistended Neuro: Normal speech, normal affect Problem List: Acute COPD exacerbation vs Acute on chronic systolic CHF vs pneumonia Multifocal RUL nodular pulmonary opacties Suspected tiny meningioma 6mm Seizure disorder Hypertension Chronic back/neck pain Anxiety/Depression/Bipolar disorder hx mild non-obstructive CAD hx polysubstance abuse hx cervical cancer hx prior CVA tobacco use Acute COPD exacerbation vs Acute on chronic systolic CHF vs pneumonia Multifocal RUL nodular pulmonary opacties Reports sudden onset shortness of breath when woken up in the middle of night. suggestive of orthopnea, paroxysmal nocturnal dyspnea. Not hypoxic on arrival. CXR (11/11): diffuse bilateral interstitial airspace disease, mildly progressed compared to prior study. Unchanged enlarged cardiac silhouette CT head/chest/abd (11/11): likely 6mm tiny meningioma along right anterior falx, unchanged multifocal nodular opacities in RUL from 10/31/2023. inflammatory vs infectious hepatomegaly with nodular contour, right-sided nephrolithiasis, colonic diverticulosis, Prior ACDF spanning C3-C7 f/u CT recommended in 3 months to ensure resolution/improvement of opacities reported chest pain 11/11-11/12 overnight Prior recent echo (11/03/23): 39%EF, moderate global hypokinesis, moderate MR, mild-mod AI Recent heart cath 06/2023 showed mild non-obstructive CAD Troponin negative, BNP 9k Cardiology consulted - no cardiac work up needed given recent cath and noncardiac chest pain Dr. Moore, Pulm consulted continue spironolactone; added (11/11) augmentin (11/11-11/13) switched to levaquin (11/13) per pulm continue azithromycin (11/12-) and levaquin (11/13-) to cover possible infection/pneumonia daliresp added (11/13) continue duonebs, home trelegy IV steroids deescalated to PO prednisone (11/11) Seizure disorder Hypertension Chronic back/neck pain Anxiety/Depression/Bipolar disorder hx mild non-obstructive CAD hx polysubstance abuse hx cervical cancer hx prior CVA confirm home meds, restart as appropriate restart home klonopin 0.5 mg BID as needed continue home depakote fell a few days ago, states secondary to seizure, resulting in rib pain. tylenol #3 ordered. lidocaine patch VTE: heparin sq switched to lovenox 11/11 Code: Full Dispo: rehab vs HH vs SNF Pending breathing improves, dispo pref/choice; to discuss with ss/cm Thursday patient tearful regarding her deconditioning since her surgery a few months ago. States has weakened to now having difficulty walking and using her hands.
[2023-11-14] MEDS: HYDROCODONE/APAP 5/325 MG TAB PO PRN (20:16)
[2023-11-15 03:26] LABS: Absolute Basophils 0.1 K/uL (0-0.5); Absolute Lymphocytes (CBC) 1.3 K/uL (0.7-4.9); Absolute Monocytes 0.4 K/uL (0.1-1.3); Absolute Neutrophil 6.3 K/uL (1.8-8.0); Basophils % 0.9 % (0-1.3); Eosinophils % 0.1 % (0-4.4); Hematocrit 27.2 % (36.0-45.0); Hemoglobin 8.5 g/dL (12.0-15.0); Lymphocytes % 16.2 % (15.3-44.8); MCH 25.8 pg (27.0-35.0); MCHC 31.3 g/dL (32.0-36.0); MCV 82.5 fL (80-100); MPV 8.2 fL (7.6-11.3); Monocytes % 5.5 % (3.3-12.3); Neutrophils % 77.3 % (41.7-73.7); Nucleated RBC Absolute Count 0.4 (0-0); Nucleated Red Blood Cells % 4.4 % (0-0); Platelets 328 thou/uL (152-406); RBC Red Blood Cell Count 3.29 M/uL (3.86-4.86); Red Cell Distribution Width 22.6 % (12.1-15.2)
[2023-11-15 03:40] LABS: Anion Gap 11.2 mEq/L (5.0-15.0); Magnesium 2.4 mg/dL (1.6-2.4); Potassium 5.2 mEq/L (3.5-5.1)
[2023-11-15 06:15] VITALS: O2SAT 99
[2023-11-15 08:12] VITALS: BP 95/62; TEMP 97.6
--- NOTE | 2023-11-15 10:00 | P.PN ---
Subjective Date of Service: 11/15/23 Chief Complaint: OPD exacerbation Patient is doing much better today less congestion she is concerned about her was admitted to the hospital Review of Systems Unremarkable General: Weakness Respiratory: Shortness of Breath Physical Examination - Vital Signs Temperature: 97.6 F Blood Pressure: 95/62 Pulse: 88 Respirations: 16 Pulse Ox (%): 99 - Physical Exam General: Alert, Oriented x3 Respiratory: Clear to auscultation bilaterally, Diminished Cardiovascular: No edema, Regular rate/rhythm, Normal S1 S2 Assessment And Plan - Current Problems (Diagnosis) (1) Acute on chronic combined systolic and diastolic heart failure Current Visit: No Status: Acute Plan: He is currently is stable continue with present medication labs chemistries reviewed (2) COPD (chronic obstructive pulmonary disease) Current Visit: No Status: Acute Plan: COPD exacerbation patient is doing much better discharge patient on low-dose pr ednisone 10 mg twice a day in addition to Roflumilast 500 mg daily and low-dose azithromycin patient is at risk for resistant organism I will also added levofloxacin follow-up with me in 1 week Qualifiers: COPD type: unspecified COPD Qualified Code(s): J44.9 - Chronic obstructive pulmonary disease, unspecified (3) Abnormal CT scan, chest Current Visit: Yes Status: Acute Plan: Patient has multifocal opacities in the right lung unchanged from the chest CT that was done recently add Augmentin for the possibility of an infection will need a follow-up CT scan high risk for lung cancer Recent CT scan done No acute traumatic intracranial findings. Unchanged 6 mm ovoid extra-axial hyperdense lesion along the right anterior falx, likely meningioma. Recommend nonemergent contrast enhanced MR brain. 2. No acute cervical spine fracture. Prior ACDF spanning C3-C7. No acute hardware complication. 3. No acute traumatic thoracic, abdominal, or pelvic findings. 4. Unchanged multifocal nodular opacities in the right upper lobe, grossly unchanged from 10/31/2023. Findings could represent infectious/inflammatory etiology. Follow-up to resolution is recommended. Recommend follow-up CT chest in 3 months. 5. Hepatomegaly with nodular contour, can be seen in setting of cirrhosis. 6. Right-sided nephrolithiasis. 7. Colonic diverticulosis
--- NOTE | 2023-11-15 13:48 | P.DS ---
Admission Date: 11/14/23 Discharge Date: 11/15/23 Disposition: ROUTINE DISCHARGE Reason for Admission: OPD exacerbation Consultations: Pulmonology - Dr. Moore Cardiology - Dr. Leavitt / Dr. Crocker Brief History of Present Illness: 53yo F, PMH: COPD, coronary artery disease, seizure disorder, history of substance abuse, multiple ED visits and multiple hospitalizations Patient was brought to the emergency department because of sudden onset shortness of breath. Patient stated she woke up in the middle of the night, with sudden shortness of breath, sat at the edge of the bed, symptoms became worse so she presented to the emergency department. Her symptoms suggest orthopnea. Patient was not hypoxic on arrival. CHF exacerbation versus COPD exacerbation suspected. Patient was given bronchodilator treatment, IV antibio tics and IV Lasix. She is hospitalized for further management. Hospital Course: Problem List: Acute COPD exacerbation vs Acute on chronic systolic CHF vs pneumonia Multifocal RUL nodular pulmonary opacties Suspected tiny meningioma 6mm Seizure disorder Hypertension Chronic back/neck pain Anxiety/Depression/Bipolar disorder hx mild non-obstructive CAD hx polysubstance abuse hx cervical cancer hx prior CVA tobacco use Physical Exam: GEN: Alert, oriented, short of breath, anxious HEENT: Normal conjunctiva, sclera anicteric, CV: normal rate & rhythm, trace-1 b/l pedal edema Pulm: labored respirations on room air, diminished at bases b/l ABD: soft, nontender, nondistended Neuro: Normal speech, normal affect Vital Signs/Physical Exam: Temp Pulse Resp BP Pulse Ox 97.6 F 88 16 95/62 99 11/15/23 09:59 11/15/23 09:59 11/15/23 09:59 11/15/23 09:59 11/15/23 09:59 Laboratory Data at Discharge: WBC 8.10 thou/uL (4.3-10.9) 11/15/23 03:08 Hgb 8.5 g/dL (12.0-15.0) L 11/15/23 03:08 Hct 27.2 % (36.0-45.0) L 11/15/23 03:08 Plt Count 328 thou/uL (152-406) 11/15/23 03:08 PT 17.5 SECONDS (9.5-12.5) H 11/12/23 03:00 INR 1.61 11/12/23 03:00 Sodium 132 mEq/L (136-145) L 11/15/23 03:08 Potassium 5.2 mEq/L (3.5-5.1) H 11/15/23 03:08 BUN 24 mg/dL (7-18) H 11/15/23 03:08 Creatinine 1.00 mg/dL (0.55-1.02) 11/15/23 03:08 Glucose 126 mg/dL (74-106) H 11/15/23 03:08 Phosphorus 3.2 mg/dL (2.5-4.9) 11/13/23 02:24 Magnesium 2.4 mg/dL (1.6-2.4) 11/15/23 03:08 Total Bilirubin 0.5 mg/dL (0.2-1.0) 11/12/23 03:00 AST 61 U/L (15-37) H 11/12/23 03:00 ALT 67 U/L (13-56) H 11/12/23 03:00 Alkaline Phosphatase 231 U/L (45-117) H 11/12/23 03:00 Home Medications: Divalproex Sodium [Depakote] 500 mg PO BID 01/15/23 Fluticasone/Umeclidin/Vilanter [Trelegy Ellipta 100-62.5-25] 1 each IH DAILY 30 Days #30 aero 05/04/23 Furosemide [Lasix*] 40 mg PO DAILY tab 05/19/23 Nitroglycerin [Nitrostat*] 0.4 mg SL UD PRN tab 05/19/23 Ipratropium Neb [Atrovent*] 0.5 mg NEB [id number] #60 amp 09/22/23 Blood Sugar Diagnostic [Test Strips] 1 each MC DAILY #100 strip 09/29/23 Blood-Glucose Meter [Glucocard Shine Connex Meter] 1 each MC DAILY #1 ea 09/29/23 Lancets [Glucocom Lancets] 1 each BID #100 ea 09/29/23 Metformin HCl 500 mg PO DAILY #30 tab 09/29/23 carvediloL [Carvedilol] 12.5 mg PO BID #60 tab 09/29/23 Aspirin 81 mg PO DAILY 11/03/23 Atorvastatin Calcium 20 mg PO DAILY 11/03/23 Duloxetine [Cymbalta *] 20 mg PO DAILY 11/03/23 Lactulose 30 ml PO TID PRN 11/03/23 clonazePAM [Clonazepam] 0.5 tab PO Q8H PRN 11/13/23 Azithromycin Tab [Zithromax*] 250 mg PO DAILY 15 Days #15 tab 11/15/23 Prednisone [Sterapred Ds] 10 mg PO BID 15 Days #15 tab 11/15/23 Roflumilast [Daliresp*] 500 mcg PO DAILY 60 Days #30 tab 11/15/23 levoFLOXacin [Levaquin*] 750 mg PO DAILY 7 Days #7 tab 11/15/23 New Medications: Roflumilast [Daliresp*] 500 mcg PO DAILY 60 Days #30 tab levoFLOXacin [Levaquin*] 750 mg PO DAILY 7 Days #7 tab Prednisone [Sterapred Ds] 10 mg PO BID 15 Days #15 tab Azithromycin Tab [Zithromax*] 250 mg PO DAILY 15 Days #15 tab Physician Discharge Instructions: Physician discharge instructions: Patient presented with sudden onset shortness of breath, orthopnea and was found to have an acute COPD and CHF exacerbation complicated by suspected pneumonia. Medications: Follow up: PCP 3-5 days Pulmonology 1-2 weeks Cardiology in ~1 month Followup: NONE,NONE [UNKNOWN] - Time spent managing pt's care (in minutes): 45
--- NOTE | 2023-11-16 13:06 | EKG ---
Test Date: 2023-11-13 Test Time: 06:06:14 Pipeline Inspector: ARON MEASUREMENT RESULTS: Intervals: Rate: 108 WV: 138 QRSD: 86 QT: 358 QTc: 479 [place]: P: 66 WV: 138 QRS: 105 T: 38 INTERPRETIVE STATEMENTS: Sinus tachycardia Rightward axis Low voltage QRS Borderline ECG Compared to ECG 11/12/2023 02:15:10 No significant changes Electronically Signed On 11-16-23 12:58:22 CDT by Saad Leavitt
--- NOTE | 2023-11-16 13:13 | EKG ---
Test Date: 2023-11-12 Test Time: 02:15:10 New Media Strategist: RV MEASUREMENT RESULTS: Intervals: Rate: 118 TN: 142 QRSD: 86 QT: 346 QTc: 484 [place]: P: 64 TN: 142 QRS: 125 T: 40 INTERPRETIVE STATEMENTS: Sinus tachycardia Right axis deviation Low voltage QRS Abnormal ECG Compared to ECG 11/03/2023 01:11:28 Right-axis deviation now present Atrial abnormality no longer present Electronically Signed On 11-16-23 13:00:29 CDT by Saad Leavitt
== END 2023-11-15 10:32 | disposition home or self-care (01) | DRG 190 ==
LOC: ER 01:53 → ERHOLD 04:52 → 2ND 13:03 → OBSVTOIN 11-14 13:06
PROVIDERS: ADMIT Internal Medicine; ATTEND Hospitalist
PROC: 05HQ33Z Insertion of Infusion Device into Left External Jugular Vein, Percutaneous Approach (ICD-10-PCS; principal; 2023-11-14)
DX: J44.1 Chronic obstructive pulmonary disease with (acute) exacerbation (principal); I50.43 Acute on chronic combined systolic (congestive) and diastolic (congestive) heart failure; J18.9 Pneumonia, unspecified organism; I25.110 Atherosclerotic heart disease of native coronary artery with unstable angina pectoris; G40.509 Epileptic seizures related to external causes, not intractable, without status epilepticus; I11.0 Hypertensive heart disease with heart failure; J44.0 Chronic obstructive pulmonary disease with (acute) lower respiratory infection; D64.9 Anemia, unspecified; E66.9 Obesity, unspecified; G89.29 Other chronic pain; M54.9 Dorsalgia, unspecified; M54.2 Cervicalgia; F41.9 Anxiety disorder, unspecified; F31.9 Bipolar disorder, unspecified; N20.0 Calculus of kidney; D32.9 Benign neoplasm of meninges, unspecified; M19.90 Unspecified osteoarthritis, unspecified site; K57.30 Diverticulosis of large intestine without perforation or abscess without bleeding; I25.2 Old myocardial infarction; F17.210 Nicotine dependence, cigarettes, uncomplicated; R16.0 Hepatomegaly, not elsewhere classified; Z71.6 Tobacco abuse counseling; Z88.8 Allergy status to other drugs, medicaments and biological substances; Z79.82 Long term (current) use of aspirin; Z68.32 Body mass index [BMI] 32.0-32.9, adult; Z85.41 Personal history of malignant neoplasm of cervix uteri; Z90.49 Acquired absence of other specified parts of digestive tract; Z79.84 Long term (current) use of oral hypoglycemic drugs; Z79.02 Long term (current) use of antithrombotics/antiplatelets; Z86.73 Personal history of transient ischemic attack (TIA), and cerebral infarction without residual deficits; Z91.018 Allergy to other foods; Z79.899 Other long term (current) drug therapy
CPT/HCPCS: 36415; 70450; 71045; 71250; 72125; 80048; 80076; 80164; 80307; 81001; 82947; 83605; 83735; 83880; 84100; 84484; 85025; 85610; 87040; 87070; 87205; 93005; 94760; 96374; 96375; 97161; 97530; 99285; G0378; J1644; J1650; J1940; J2001; J2405; J2919; J2920; J7512; J7613; J7614; J7644

== ENCOUNTER 2023-11-20 05:46 | Emergency (ER) | payer OTHER ==
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
--- NOTE | 2023-11-20 10:56 | EDPHYS ---
Physician Documentation [facility] Name: Heather Coon Age: 53 yrs Sex: Female : 1970 Arrival Date: 11/20/2023 Time: 05:46 Bed DX3 Private MD: ED Physician Rogelio Hummel HPI: 11/19 06:02 This 53 yrs old Female presents to ER via EMS with complaints of Pain All fabrice Over. 06:02 The patient has shortness of breath at rest, with light activity. Onset: The fabrice symptoms/episode began/occurred 3 day(s) ago. Duration: The symptoms are continuous, and are steadily getting worse. The patient's shortness of breath is aggravated by nothing, is alleviated by rest, sitting up. The patient or guardian reports cough, difficulty breathing. Modifying factors: The symptoms are alleviated by nothing. the symptoms are aggravated by nothing. pain all over, hands and feet swelling. Associated signs and symptoms: Pertinent positives: non-productive cough, nausea. Historical: - Allergies: 05:55 fluoxetine; cm10 05:55 Green Tea; cm10 05:55 Keppra; not an allergy; cm10 - PMHx: 05:55 Anxiety; Arthritis; Bipolar disorder; Cancer-Cervical; Chronic obstructive lung cm10 disease; Chronic pain; Congestive heart failure; Depression; Diverticulitis; Herniated Back Disc; Hypertension; intestinal mass; Myocardial infarction; pt reports hx of seizures; Spastic Muscles; stroke; - PSHx: 05:55 back surgery; cervical fusion; Cholecystectomy; foot; Tonsillectomy; cm10 - Immunization history:: Adult Immunizations up to date. - Infectious Disease History:: Denies. - Social history:: Smoking status: unknown. - Family history:: not pertinent. ROS: 06:02 Constitutional: Negative for fever, chills, and weight loss, Eyes: Negative for injury, fabrice pain, redness, and discharge, ENT: Negative for injury, pain, and discharge, Neck: Negative for injury, pain, and swelling, Abdomen/GI: Negative for abdominal pain, nausea, vomiting, diarrhea, and constipation, : Negative for injury, bleeding, discharge, and swelling, Skin: Negative for injury, rash, and discoloration, Neuro: Negative for headache, weakness, numbness, tingling, and seizure, Psych: Negative for depression, anxiety, suicide ideation, homicidal ideation, and hallucinations, Allergy/Immunology: Negative for hives, rash, and allergies, Endocrine: Negative for neck swelling, polydipsia, polyuria, polyphagia, and marked weight changes, 06:02 Cardiovascular: Positive for chest pain, palpitations, 06:02 Respiratory: Positive for cough, shortness of breath, wheezing, expiratory, Exam: 06:02 Constitutional: This is a well developed, well nourished patient who is awake, alert, fabrice and in no acute distress. Head/Face: Normocephalic, atraumatic. Eyes: Pupils equal round and reactive to light, extra-ocular motions intact. Lids and lashes normal. Conjunctiva and sclera are non-icteric and not injected. Cornea within normal limits. Periorbital areas with no swelling, redness, or edema. ENT: Nares patent. No nasal discharge, no septal abnormalities noted. Tympanic membranes are normal and external auditory canals are clear. Oropharynx with no redness, swelling, or masses, exudates, or evidence of obstruction, uvula midline. Mucous membranes moist. Neck: Trachea midline, no thyromegaly or masses palpated, and no cervical lymphadenopathy. Supple, full range of motion without nuchal rigidity, or vertebral point tenderness. No Meningismus. Chest/axilla: Normal chest wall appearance and motion. Nontender with no deformity. No lesions are appreciated. Abdomen/GI: Soft, non-tender, with normal bowel sounds. No distension or tympany. No guarding or rebound. No evidence of tenderness throughout. Back: No spinal tenderness. No costovertebral tenderness. Full range of motion. Pelvic Exam: Normal external genitalia. Speculum exam with closed cervical os, no discharge or bleeding noted. Bimanual exam with normal adnexa, no adnexal or cervical motion tenderness. Normal uterus. Female : Normal external genitalia. Skin: Warm, dry with normal turgor. Normal color with no rashes, no lesions, and no evidence of cellulitis. MS/ Extremity: Pulses equal, no cyanosis. Neurovascular intact. Full, normal range of motion. Neuro: Awake and alert, GCS 15, oriented to person, place, time, and situation. Cranial nerves II-XII grossly intact. Motor strength 5/5 in all extremities. Sensory grossly intact. Cerebellar exam normal. Normal gait. Psych: Awake, alert, with orientation to person, place and time. Behavior, mood, and affect are within normal limits. 06:02 Cardiovascular: Rate: actual rate is 115 bpm, Rhythm: regular, JVD: is not appreciated, 06:02 Musculoskeletal/extremity: ROM: intact in all extremities, full active range of motion, Circulation is intact in all extremities. Compartment Syndrome exam of affected extremity: is normal. DVT Exam: No signs of deep vein thrombosis. no swelling, no tenderness, negative Homans' sign noted on exam, no appreciated bluish discoloration, no erythema, no increased warmth, 06:53 ECG was reviewed by the Attending Physician. [facility] Vital Signs: 05:54 BP 133 / 94; Pulse 112; Resp 18; Temp 98.6; Pulse Ox 99% on R/A; Weight 92.08 kg (M); cm10 Height 5 ft. 3 in. ; Pain 10/10; 06:45 BP 139 / 97; Pulse 106; Resp 16; Pulse Ox 100% on R/A; km8 05:54 Body Mass Index 35.96 (92.08 kg, 160.02 cm) cm10 05:54 Pain Scale: Adult cm10 Nicole Coma Score: 06:05 Eye Response: spontaneous(4). Motor Response: obeys commands(6). Verbal Response: km8 oriented(5). Total: 15. MDM: 05:51 Patient medically screened. [facility] 06:07 Differential diagnosis: Anemia asthma, Bronchitis CHF exacerbation, Chronic Obstructive fabrice Pulmonary Disease obstructed airway, tracheal injury, bronchitis, flu, URI, pneumonia, Pneumothorax pulmonary edema, Sepsis Unstable Angina. Antibiotic administration: Not indicated. Differential Diagnosis altered mental status, sepsis, flu, Obstructed Airway Bronchitis Influenza Upper Respiratory Infection Sinusitis Pharyngitis Otitis Media Allergic Rhinitis Asthma Exacerbation Viral Syndrome Pneumonia. Data reviewed: vital signs, nurses notes, lab test result(s), EKG, radiologic studies, CT scan, plain films. Consideration of Admission/Observation Patient was admitted/placed on observation. Escalation of care including admission/observation considered. I considered the following discharge prescriptions or medication management in the emergency department Antivirals: At this time, antivirals are not recommended. Independent interpretation of the following test(s) in the Emergency Department EKG: See my EKG interpretation above. Test considered but Not performed: Ultrasound no abd usg. 08:03 ED course: Patient continues with pain all over. Troponin at 136. I have urged her to sp3 stay however she wants to leave AGAINST MEDICAL ADVICE demanding IV narcotic medications for her chronic pain. She states she has pills at home and I will just take those. Patient understands risks of , disability, pain and suffering and continued worsening of condition if she leaves.. 11/19 05:58 Order name: Cardiac monitoring; Complete Time: 06:07 [facility] 11/19 05:58 Order name: EKG - Nurse/Tech; Complete Time: 06:53 [facility] 11/19 05:58 Order name: IV Saline Lock; Complete Time: 06: [facility] 11/19 05:58 Order name: Labs collected and sent; Complete Time: : [facility] 11/19 05:58 Order name: O2 Per Protocol; Complete Time: 06: [facility] 11/19 05:58 Order name: O2 Sat Monitoring; Complete Time: 06:07 [facility] EC:53 Rate is 107 beats/min. Rhythm is regular. QRS [place] is Normal. NV interval is normal. [facility] QRS interval is normal. QT interval is normal. No Q waves. T waves are Normal. No ST changes noted. Clinical impression: NSR w/ Non-specific ST/T Changes and No evidence of ischemia. Interpreted by me. Reviewed by me. Administered Medications: 06:40 Drug: MethylPrednisoLONE IVP 125 mg IVP once Route: IVP; Site: right antecubital; [facility] 06:40 Drug: Famotidine IVP 20 mg IVP once; dilute with 10 mL 0.9% NaCl; give over 2 minutes [facility] Route: IVP; Site: right antecubital; 06:40 Drug: Rocephin IV 1 grams IV at per protocol once; Given slow IV push per pharmacy [facility] instructions Route: IV; Rate: per protocol; Site: right antecubital; 06:40 Drug: morphine IVP or IV 4 mg IVP once over 4 mins Route: IVP; Infused Over: 4 mins; [facility] Site: right antecubital; 06:40 Drug: NS 0.9% IV 500 ml IV at bolus once Route: IV; Rate: bolus; Site: right [facility] antecubital; 06:40 Drug: NS 0.9% IV 1000 ml IV at 125 ml/hr continuous Route: IV; Rate: 125 ml/hr; Site: [facility] right antecubital; 06:51 Drug: Levalbuterol Inhalation 2.5 mg Inhalation once Route: Inhalation; 8 06:53 Drug: Ondansetron IVP 4 mg IVP once; over 2 minutes Route: IVP; Site: right antecubital;km8 Disposition Summary: 11/20/23 07:58 Left Against Medical Advice Notes: Location: Home aa5 Condition: Stable aa5 Signatures: Derrick Santillan MD MD cha Calderon, Audri RN RN aa5 Rogelio Hummel MD MD sp3 Maile Orellana, RN RN cm10 Merlyn Salinas RN RN km8
--- OUTSIDE RECORDS SUMMARY | 2023-11-20 11:22 | XMS REPORT | Continuity of Care Document ---
Author Name Unknown Address [address] [facility] [place] [address] [facility] thconnect Address [address] [facility] [address] [place] [address] Care Team Providers Care Flute Grinder Name Role Phone CandieAneta Bolden Primary Care Physician [phone] PANKAJ OBREGON Attending Clinician Un available AYDEE GO Attending Clinician Unavailable CARA BURGESS Attending Clinician UnavailADAM Moreno Attending Clinician Unavailable THOMAS LOZOYA Attending Clinician Nina MARIAH Quiroga Attending Clinician Unavailable MORALES BALL Attending Clinician Unavailab AARON Vera Attending Clinician Unavailable EFRA BABCOCK Attending Clinician Un available GUSTAVO DELANEY Attending Clinician Unavailable MYLA MIJARES Attending Clinician Unavailable JUANY GREEN Attending Clinician Unavailable PROVIDER, TIFFANY Attending Clinician Unavaila SIDDHARTH Kaye Attending Clinician Unavailекатерина GARRETT MD Attending Clinician Unavailab SHY Kelly Attending Clinician Unavailable SARAI JULES Attending Clinician Unavaila YONATAN Juarez Attending Clinician Unava radha Loyola MD, [place] Dixon Attending Clinician Nina lisa Obregon MD, Pankaj Bernal Attending Clinician Selin Fry DO Attending Clinician [phone] Bud ELIZONDO, Selin Attending Clinician [phone] SELIN FERRER Attending Clinician Unavailable DEMETRIUS TOBAR Attending Clinician Unavailab KETAN Armenta Attending Clinician Unavail able Kael SENIOR ENERGY CONSULTANT, Ketan Sanders Attending Clinician [phone] BRIAN BRYAN Attending Clinician Unavailable DO, Brian Attending Clinician [phone] Jenifer ELIZONDO, Cara Hamilton Attending Clinician [phone] Aydee Go MD Attending Clinician [phone] System, Provider Not In Attending Clinician Unav Dallas Allen Attending Clinician [phone] Adam Garcia MD Attending Clinician [phone] Mercedez ELIZONDO, Harry Attending Clinician [phone] Rocael ELIZONDO, Antwon Mccrary Attending Clinician + [phone] Yue Bui MD Attending Clinician [phone] Connie Davey MD Attending Clinician [phone] Mariah Aldridge MD Attending Clinician [phone] Valerio ELIZONDO, Thomas Hopkins Attending Clinician CONNIE DAVEY Attending Clinician Unavailabl e JENNY, Alfonso ALEMAN Attending Clinician Unavailable Jennyshannon MITTAL, K Lorelei Attending Clinician [phone] RITCHIE WARREN Attending Clinician Unavailable Briana ELIZONDO, Ritchie Stoner Attending Clinician [phone] Rk CAMPOS, Shy Stoner Attending Clinician [phone] Reji ELIZONDO, Halima Hummel Attending Clinician [phone] Lucho ELIZONDO, Jen Olivia Attending Clinician [phone] Roxi ELIZONDO, Parrish Reyez Attending Clinici an ROXI, PARRISH CR Attending Clinician Unavaila LORENZA Mariscal Attending Clinician Unavailable Alcon ELIZONDO, Sav Attending Clinician [phone] Essence ELIZONDO, Lorenza Attending Clinician [phone] Maria Teresa Nicole LVN Attending Clinician [phone] CHANTEL BOJORQUEZ Attending Clinician CHANTEL Kelly Attending Clinician Jack Ibrahim MD, Brandyn Otoole Attending Clinician [phone] SELINA MARTINES Attending Clinician Unavailable Sapna Vargas DO Attending Clinician + [phone] Tyrel ELIZONDO, Glory Katz Attending Clinician + Selina Martines MD Attending Clinician [phone] Vaccine, [place] Pedi Attending Clinician U oJse Titus MD Attending Clinician [phone] JOSE PAK Attending Clinician Unavailable NICHELLE VIRK Attending Clinician Unavaila Nichelle Lakhani Attending Clinician [phone] Doctor Unassigned, Omar Attending Clinician U chelsi Nava RN, Miky Attending Clinician Unavailab monroe BRONSONP, Fabrice Attending Clinician [phone] Deo FUSE CUP EXPANDER, Lydia Attending Clinician [phone] Unknown, Attending Attending Clinician Unavailab le UNKNOWN, ATTENDING Attending Clinician Unavailab Anali Berg Attending Clinician Yehuda Arcos MD Attending Clinician PANKAJ OBREGON Admitting Clinician Un available CARA BURGESS Admitting Clinician Unavailab ADAM Cbarera Admitting Clinician Unavailable MARIAH ALDRIDGE Admitting Clinician Unavailable CONNIE DAVEY Admitting Clinician UnavailAlfonso Oh Admitting Clinician Unavailable RITCHIE WARREN Admitting Clinician Unavailable JEN GELLER Admitting Clinician Unavaila LORENZA Mariscal Admitting Clinician Unavailable Lorenza Lowry MD Admitting Clinician [phone] BRANDYN IBRAHIM Admitting Clinician Unavailable Brandyn Ibrahim MD Admitting Clinician [phone] GLORY ESTEVES Admitting Clinician Unav ailable NICHELLE VIRK Admitting Clinician Unavaila yaya Payers Payer Name Policy Type Policy Number Effective Date Expirati on Date Source [facility] [id number] 2023 00:00:00 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 [id number] 2023 00:00:00 [facility] SESAR SEVILLA COPAY FOCUS 9 [id number] 2023 00:00:00 [facility] [id number] 2023 00:00:00 MEDICAID PENDING PENDING 2022 00:00:00 [...] leg weakness Disease Active 2022-07 00:00: 00 [facility] Bilateral leg weakness Bilateral leg weakness Disease Active 2022-07 00:00: 00 [facility] Pneumonia Pneumonia Disease Active 2022-07 00:00: 00 [facility] Cavitary lesion of lung Cavitary lesion of lung Disease Active 2022-07 00:00: 00 [facility] Cervical myelopathy Cervical myelopathy Disease Recurre nce 2022-07 00:00: 00 [facility] Cervical disc disorder with myelopathy , high cervical region Cervical disc disorder with myelopathy , high cervical region Disease Active 2023-1 1-09 00:00: 00 [facility] Cord compressio n Cord compressio n Disease Recurre nce 9- 00:00: 00 [facility] Cauda equina compressio n Cauda equina compressio n Disease Active - 00:00: 00 [facility] Seizure Seizure Disease Recurre nce 1-14 00:00: 00 [facility] Cardiomyop athy Cardiomyop athy Disease Active 08-01 00:00: 00 [facility] NSVT (nonsustai keisha ventricula r tachycardi a) NSVT (nonsustai keisha ventricula r tachycardi a) Disease Active 08-01 00:00: 00 [facility] Chest pain, unspecifie d type Chest pain, unspecifie d type Disease Active 07-31 00:00: 00 [facility] Elevated brain natriureti c peptide (BNP) level Elevated brain natriureti c peptide (BNP) level Disease Active 07-31 00:00: 00 [facility] Coronary artery disease involving [place] coronary artery of [place] heart without angina pectoris Coronary artery disease involving [place] coronary artery of [place] heart without angina pectoris Disease Active 07-31 00:00: 00 [facility] Snores Snores Disease Active 07-31 00:00: 00 [facility] Cigarette smoker Cigarette smoker Disease Active 07-31 00:00: 00 [facility] Primary hypertensi on Primary hypertensi on Disease Active 07-31 00:00: 00 [facility] Other hyperlipid emia Other hyperlipid emia Disease Active 07-31 00:00: 00 [facility] Coronary artery disease involving [place] coronary artery of [place] heart without angina pectoris Coronary artery disease involving [place] coronary artery of [place] heart without angina pectoris Disease Active 07-31 00:00: 00 [facility] Chronic bilateral low back pain with bilateral sciatica Chronic bilateral low back pain with bilateral sciatica Disease Active 2021-07 0-17 00:00: 00 [facility] 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 Disease Active 04-15 00:00: 00 [facility] Neuroforam inal stenosis of cervical spine Neuroforam inal stenosis of cervical spine Disease Active 04-15 00:00: 00 [facility] Stroke-lik e symptoms Stroke-lik e symptoms Disease Active 04-13 00:00: 00 [facility] Bipolar disorder, in partial remission, most recent episode manic Bipolar disorder, in partial remission, most recent episode manic Disease Active 09-27 00:00: 00 [facility] Neuroforam inal stenosis of lumbar spine Neuroforam inal stenosis of lumbar spine Disease Active 09-27 00:00: 00 [facility] Bilateral acute otitis media, recurrence not specified, unspecifie d otitis media type Bilateral acute otitis media, recurrence not specified, unspecifie d otitis media type Disease Active 09-27 00:00: 00 [facility] Lumbar spinal stenosis Lumbar spinal stenosis Disease Active 09-27 00:00: 00 [facility] Right-side d low back pain with sciatica, sciatica laterality unspecifie d Right-side d low back pain with sciatica, sciatica laterality unspecifie d Disease Active 09-27 00:00: 00 [facility] Generalize d anxiety disorder Generalize d anxiety disorder Disease Active 09-27 00:00: 00 [facility] Agoraphobi a Agoraphobi a Disease Active 09-27 00:00: 00 [facility] Bipolar disorder, in partial remission, most recent episode manic Bipolar disorder, in partial remission, most recent episode manic Disease Active 09-27 00:00: 00 [facility] Obsessive compulsive disorder Obsessive compulsive disorder Disease Active 09-27 00:00: 00 [facility] Breast mass, left Breast mass, left Disease Active 09-17 00:00: 00 [facility] Anxiety Anxiety Disease Active 09-17 00:00: 00 [facility] Lower back pain Lower back pain Disease Active 09-17 00:00: 00 [facility] High blood pressure High blood pressure Disease Active 09-17 00:00: 00 [facility] COPD (chronic obstructiv e pulmonary disease) COPD (chronic obstructiv e pulmonary disease) Disease Active 09-17 00:00: 00 [facility] Obesity Obesity Disease Active 09-17 00:00: 00 [facility] Allergies, Adverse Reactions, Alerts Allergy Name Allergy Type Status Severity Reaction(s) Onset Date Inactive Date Treating Clinician Comments Source FLUOXETI NE Allergy Active 03-29 00:00: 00 [facility] GREEN TEA Allergy Active High Other 03-29 00:00: 00 [facility] LEVETIRA CETAM Allergy Active [facility] N\\T\\V 03-29 00:00: 00 [facility] Green Tea Propensi ty to adverse reaction s Active 03-29 00:00: 00 Seizure like activity [facility] Levetira cetam Propensi ty to adverse reaction s Active Nausea And Vomiting 03-29 00:00: 00 Intensifi es seizure [facility] Fluoxeti ne Propensi ty to adverse reaction s Active 03-29 00:00: 00 [facility] Green Tea Drug Allergy Active Other (See Comments) 03-29 00:00: 00 Seizure like activity [facility] Levetira cetam Drug Allergy Active Nausea And Vomiting 03-29 00:00: 00 Intensifi es seizure [facility] Levetira cetam Propensi ty to adverse reaction s Active Other 11-17 00:00: 00 Intensifi es seizure Makes seizures worse Makes seizures worse Intensifi es seizure Cynthia Seybold - Externa l LEVETIRA CETAM DRUG INGREDI Active Other-Cmnt 11-17 00:00: 00 [facility] Levetira cetam Propensi ty to adverse reaction s Active Other - See comments 11-17 00:00: 00 Makes seizures worse [facility] Green Tea Propensi ty to adverse reaction s Active 08-02 00:00: 00 [facility] GREEN TEA Allergy Active 08-02 00:00: 00 [facility] FLUOXETI NE Allergy Active Med Rash 08-02 00:00: 00 [facility] Fluoxeti ne Propensi ty to adverse reaction s Active Rash 08-02 00:00: 00 [facility] Fluoxeti ne Propensi ty to adverse reaction s Active Unknown - See comments 03-25 00:00: 00 [facility] FLUOXETI NE DRUG INGREDI Active Unknown-Cmnt 03-25 00:00: 00 [facility] Diclofen ac Propensi ty to adverse reaction s Active Anxiety 11-20 00:00: 00 Cynthia Bedoyaold - Externa l DICLOFEN AC DRUG INGREDI Active HYPERTENSION 11-20 00:00: 00 [facility] Green Tea Propensi ty to adverse reaction s Active Anxiety 08-10 00:00: 00 Seizure like activity Seizures Seizures Seizure like activity Cynthia Bedoyaold - Externa l GREEN TEA DRUG INGREDI Active Med Other-Cmnt 08-10 00:00: 00 [facility] Green Tea Propensi ty to adverse reaction s to drug Active Other - See comments 08-10 00:00: 00 Seizures [facility] FLUOXETI NE HCL DRUG INGREDI Active Hives 03-19 00:00: 00 [facility] Fluoxeti ne Hcl Propensi ty to adverse reaction s Active Hives 03-19 00:00: 00 [facility] Family History Family Member Diagnosis Comments Start Date Stop Date Sourc e Natural mother Alcohol abuse C [facility] Natural mother Stroke [facility] Natural mother Alcohol abuse C [facility] Natural mother Cancer [facility] Natural mother Diabetes [facility] Natural mother Heart disease C [facility] Natural mother Hyperlipidemia [facility] Natural mother Kidney disease [facility] Natural mother Stroke [facility] Paternal uncle Diabetes [facility] Social History Social Habit Start Date Stop Date Quantity Comments Source History SDOH Social Connections Get Together [facility] History SDOH Social Connections Taoist [facility] History SDOH Social Connections Membership [facility] History SDOH Social Connections Meetings [facility] History of tobacco use Cigarette Smoker Cynthia boyd - External History SDOH Alcohol Frequency [facility] History SDOH Alcohol Std Drinks [facility] History SDOH Alcohol Binge [facility] History SDOH Housing Homeless Last Year [facility] Sexual orientation C [facility] Tobacco use and exposure 2023-09-30 00:00:00 2023-09-30 00:00:00 Smokeless tobacco non-user Cynthia Garcia - External Education - What is the highest level of school you have completed or the highest degree you have received? 2023-09-30 00:00:00 2023-09-30 00:00:00 GED or equivalent Cynthia Garcia - External History of Social function 2023-08-03 00:00:00 2023-08-03 00:00:00 [facility] Alcohol intake 2023-06-02 00:00:00 2023-06-02 00:00:00 Current drinker of alcohol (finding) [facility] Exposure to SARS-CoV-2 (event) 2023-05-18 00:00:00 2023-05-28 07:28:00 Not sure [facility] History SDOH Housing Unable to Pay - In the last 12 months, was there a time when you were not able to pay the mortgage or rent on time? 2023-05-26 00:00:00 2023-05-26 00:00:00 Yes [facility] Cigarettes smoked current (pack per day) - Reported 2023-05-26 00:00:00 2023-05-26 00:00:00 [facility] Cigarette pack-years 2023-05-26 00:00:00 2023-05-26 00:00:00 [facility] History SDOH Housing Places Lived 2023-03-30 00:00:00 2023-03-30 00:00:00 1 [facility] Alcohol Comment 2023-03-29 00:00:00 2023-03-29 00:00:00 2x a week [facility] History SDOH Social Connections Phone 2022-08-01 00:00:00 2022-08-01 00:00:00 5 [facility] History SDOH Social Connections Living 2022-08-01 00:00:00 2022-08-01 00:00:00 5 [facility] History SDOH Physical Activity DPW 2022-08-01 00:00:00 2022-08-01 00:00:00 0 [facility] History SDOH Physical Activity MPS 2022-08-01 00:00:00 2022-08-01 00:00:00 0 [facility] History SDOH Financial 2022-08-01 00:00:00 2022-08-01 00:00:00 3 [facility] History SDOH Food Worry 2022-08-01 00:00:00 2022-08-01 00:00:00 1 [facility] History SDOH Food Scarcity 2022-08-01 00:00:00 2022-08-01 00:00:00 1 [facility] History SDOH Transport Med 2022-08-01 00:00:00 2022-08-01 00:00:00 2 [facility] History SDOH Transport Non-Med 2022-08-01 00:00:00 2022-08-01 00:00:00 2 [facility] Sex Assigned At 1970 00:00:00 1970 00:00:00 [facility] Smoking Status Start Date Stop Date Source Smokes tobacco daily 2023-09-30 00:00:00 Cynthia Garcia - Wilmer Never smoked tobacco Cynthia Garcia - External Ex-smoker 2023-05-26 00:00:00 2023-05-26 00:00:00 Ad[facility] Medications Ordered Medication Name Filled [...] 14:27: 32 09-29 00:00 :00 No 200mg Q.[id number] 3D Take 1 tablet (200 mg total) by mouth every 8 hours as needed for pain. Cynthia gonzalez Fluticasone -Umeclidin- Vilant (Trelegy Ellipta) 100-62.5-25 MCG/ACT inhalation AEROSOL POWDER, BREATH ACTIVATED 09-29 00:00: 00 Yes [id number] 1{puff} Inhale 1 puff into the lungs daily. Cynthia gonzalez Carvedilol 12.5 MG oral Tablet 09-29 00:00: 00 Yes [id number] 12.5mg Take 1 tablet (12.5 mg total) by mouth in the morning and 1 tablet (12.5 mg total) in the evening. Take with meals. Cynthia gonzalez Duloxetine HCl [address] Particles 09-29 00:00: 00 Yes [id number] 20mg Take 1 capsule (20 mg total) by mouth daily. Cynthia gonzalez Acetaminoph en-Codeine (TYLENOL/CO DEINE #3) 300-30 MG oral Tablet 09-29 00:00: 00 Yes [id number] 1{tbl} Q.25D Take 1 tablet by mouth every 6 hours as needed for pain. Cynthia gonzalez Clonazepam 1 MG oral Tablet 09-29 00:00: 00 Yes [id number] 1mg QD Take 1 tablet (1 mg [...] MG oral Tablet 09-11 00:00: 00 Yes [id number] 15mg QD Take 1 tablet (15 mg total) by mouth nightly as needed. Cynthia gonzalez Acetaminoph en-Codeine (TYLENOL/CO DEINE #3) 300-30 MG oral Tablet 09-11 00:00: 00 09-29 00:00 :00 No [id number] 1{tbl} Q.25D Take 1 tablet by mouth every 6 hours as needed for pain. Cynthia gonzalez DULoxetine (CYMBALTA) 60 MG capsule 09-09 00:00: 00 10-08 23:59 :00 No 60mg QD Take 1 capsule (60 mg total) by mouth daily for 30 days. [facility] varenicline (CHANTIX) 1 mg tablet 09-08 10:51: 03 Yes 1mg Q.5D Take 1 tablet (1 mg total) by mouth 2 (two) times daily Give with meals and with a full glass of water.. [facility] atorvastati n (LIPITOR) 20 MG tablet 09-08 10:51: 03 Yes 20mg QD Take 1 tablet (20 mg total) by mouth daily. [facility] Cyanocobala min (Vitamin B-12) 1000 MCG oral Tablet 09-08 00:00: 00 10-08 04:59 :00 Yes 1000ug Take 1 tablet (1,000 mcg total) by mouth daily. Cynthia gonzalez lidocaine (LIDODERM) 4 % patch 09-08 00:00: 00 10-07 23:59 :00 No 3{patch } Q24H Place 3 patches onto the skin daily for 30 days. [facility] metoprolol succinate (TOPROL-XL) 25 MG 24 hr tablet 09-07 16:47: 05 09-07 00:00 :00 No 25mg QD Take 1 tablet (25 mg total) by mouth daily. [facility] albuterol HFA (VENTOLIN HFA) 90 mcg/actuati on inhaler 09-07 16:47: 05 09-07 00:00 :00 No 1{puff} Inhale 1 puff by mouth via inhaler every 6 (six) hours as needed for Wheezing. [facility] fluticasone -umeclidin- vilanter (Trelegy Ellipta) 200-62.5-25 mcg DsDv 09-07 16:47: 05 09-07 00:00 :00 No QD Inhale by mouth via inhaler daily. [facility] Albuterol HFA 108 (90 Base) MCG/ACT [...] total) by mouth daily for 30 days. [facility] polyethylen e glycol (GLYCOLAX) 17 gram packet 09-07 00:00: 00 10-06 23:59 :00 No 17g Q.5D Take 17 g by mouth 2 (two) times daily for 30 days. [facility] gabapentin (NEURONTIN) 400 MG capsule 09-07 00:00: 00 10-06 23:59 :00 No 400mg Q.[id number] 3D Take 1 capsule (400 mg total) by mouth 3 (three) times daily for 30 days. [facility] furosemide (LASIX) 20 MG tablet 09-07 00:00: 00 10-06 23:59 :00 No 20mg QD Take 1 tablet (20 mg total) by mouth daily for 30 days. [facility] fluticasone -umeclidin- vilanter (Trelegy Ellipta) 200-62.5-25 mcg DsDv 2- 00:00: 00 10-06 23:59 :00 No 1{inhal ation} QD Inhale 1 Inhalation by mouth via inhaler daily for 30 days. [facility] metoprolol succinate (TOPROL-XL) 25 MG 24 hr tablet 09-07 00:00: 00 10-06 23:59 :00 No 25mg QD Take 1 tablet (25 mg total) by mouth daily for 30 days. [facility] lacosamide (VIMPAT) 100 mg in NaCl 0.9% (NS) 50 mL piggyback 08-12 21:15: 00 08-12 21:23 :00 No 100mg 100 mg, IV Piggyback, ONCE, 1 dose, On Thu08/12/23 at 1515, Administer over 30 Minutes, 50 mL
Facu lty member approving Restricted medication : BRIAN BRYAN [facility] Dicyclomine HCl 20 MG oral Tablet 08-06 00:00: 00 Yes 20mg Take 1 tablet (20 mg total) by mouth 4 times daily. Cynthia gonzalez Tamsulosin HCl 0.4 MG oral Capsule 2022-07 00:00: 00 Yes TAKE ONE (1) CAPSULE(S) BY MOUTH DAILY FOR 5 DAYS. Cynthia gonzalze tamsulosin (FLOMAX) 0.4 mg Cap 24 hr capsule 2022-07 00:00: 00 06-22 23:59 :00 No .4mg QD Take 1 capsule (0.4 mg total) by mouth daily for 5 days. [facility] varenicline (CHANTIX) 1 mg tablet 2022-07 19:45: 32 Yes 1mg Q.5D Take 1 tablet (1 mg total) by mouth 2 (two) times daily Give with meals and with a full glass of water.. [facility] atorvastati n (LIPITOR) 20 MG tablet 2022-07 19:45: 32 Yes 20mg QD Take 1 tablet (20 mg total) by mouth daily. [facility] metoprolol succinate (TOPROL-XL) 25 MG 24 hr tablet 2022-07 19:45: 32 09-07 00:00 :00 No 25mg QD Take 1 tablet (25 mg total) by mouth daily. [facility] albuterol HFA (VENTOLIN HFA) 90 mcg/actuati on inhaler 2022-07 19:45: 09-07 00:00 :00 No 1{puff} Inhale 1 puff by mouth via inhaler every 6 (six) hours as needed for Wheezing. [facility] fluticasone -umeclidin- vilanter (Trelegy Ellipta) 200-62.5-25 mcg DsDv 2022-07 19:45: 32 09-07 00:00 :00 No QD Inhale by mouth via inhaler daily. [facility] acetaminoph en-codeine (TYLENOL #3) 300-30 mg per tablet 2022-07 18:02: 00 06-16 00:00 :00 No 1{tbl} Take 1 tablet by mouth every 4 (four) hours as needed for Pain. [facility] DULoxetine (CYMBALTA) 30 MG capsule 2022-07 00:00: 00 09-08 00:00 :00 No 30mg QD Take 1 capsule (30 mg total) by mouth daily for 90 days. [facility] metroNIDAZO LE (FLAGYL) 500 MG tablet 2022-07 00:00: 00 07-04 23:59 :00 No 500mg Take 1 tablet (500 mg total) by mouth every 8 (eight) hours for 18 days. [facility] ciprofloxac in HCl (CIPRO) 500 MG tablet 2022-07 00:00: 00 07-04 23:59 :00 No 500mg Q.5D Take 1 tablet (500 mg total) by mouth 2 (two) times daily for 18 days. [facility] cyclobenzap rine (FLEXERIL) 10 MG tablet 2022-07 00:00: 06-26 23:59 :00 No 10mg Q.[id number] 3D Take 1 tablet (10 mg total) by mouth 3 (three) times daily for 10 days. [facility] oxyCODONE (OXY-IR) 10 mg tablet 2022-07 00:00: 00 06-26 23:59 :00 No 10mg Take 1 tablet (10 mg total) by mouth every 8 (eight) hours as needed for up to 10 days. Max Daily Amount: 30 mg [facility] nystatin (MYCOSTATIN ) 100,000 unit/mL suspension 2022-07 00:00: 00 06-21 23:59 :00 No [id number] Q.25D Take 5 mLs (500,000 Units total) by mouth 4 (four) times daily for 5 days. [facility] dexAMETHaso ne (DECADRON) 2 MG tablet 2022-07 00:00: 00 06-08 23:59 :00 No 1mg Take 0.5 tablets (1 mg total) by mouth 2 (two) times daily with breakfast and dinner for 2 days. [facility] dexAMETHaso ne (DECADRON) 2 MG tablet 2022-07 00:00: 00 06-06 23:59 :00 No 2mg Take 1 tablet (2 mg total) by mouth 2 (two) times daily with breakfast and dinner for 1 day. [facility] metoprolol succinate (TOPROL-XL) 25 MG 24 hr tablet 2022-07 17:44: 21 Yes 25mg QD Take 1 tablet (25 mg total) by mouth daily. [facility] varenicline (CHANTIX) 1 mg tablet 2022-07 17:44: 21 Yes 1mg Q.5D Take 1 tablet (1 mg total) by mouth 2 (two) times daily Give with meals and with a full glass of water.. [facility] albuterol HFA (VENTOLIN HFA) 90 mcg/actuati on inhaler 2022-07 17:44: 21 Yes 1{puff} Inhale 1 puff by mouth via inhaler every 6 (six) hours as needed for Wheezing. [facility] fluticasone -umeclidin- vilanter (Trelegy Ellipta) 200-62.5-25 mcg DsDv 2022-07 17:44: 21 Yes QD Inhale by mouth via inhaler daily. [facility] atorvastati n (LIPITOR) 20 MG tablet 2022-07 17:44: 21 Yes 20mg QD Take 1 tablet (20 mg total) by mouth daily. [facility] acetaminoph en-codeine (TYLENOL #3) 300-30 mg per tablet 2022-07 17:44: 21 Yes 1{tbl} Take 1 tablet by mouth every 4 (four) hours as needed for Pain. [facility] Naloxone (NARCAN) 4 MG/0.1ML nasal Liquid 2022-07 00:00: 00 Yes 4mg 0.1 mL (4 mg total) as needed. Cynthia gonzalez senna (SENOKOT) 8.6 mg tablet 2022-07 00:00: 00 06-18 23:59 :00 No 17.2mg Q.5D Take 2 tablets (17.2 mg total) by mouth 2 (two) times daily for 14 days. [facility] cyclobenzap rine (FLEXERIL) 10 MG tablet 2022-07 00:00: 00 06-16 00:00 :00 No 10mg [id number] 3D Take 1 tablet (10 mg total) by mouth 3 (three) times daily for 10 days. [facility] methocarbam oL (ROBAXIN) 500 MG tablet 2022-07 00:00: 00 06-16 00:00 :00 No 500mg Q.25D Take 1 tablet (500 mg total) by mouth 4 (four) times daily for 10 days. [facility] lactulose (CHRONULAC) 20 gram/30 mL solution 2022-07 00:00: 00 06-11 23:59 :00 No 20g Q.[id number] 3D Take 30 mLs (20 g total) by mouth 3 (three) times daily for 7 days. [facility] ondansetron (ZOFRAN-ODT ) 4 MG disintegrat ing tablet 2022-07 00:00: 00 06-11 23:59 :00 No 4mg Take 1 tablet (4 mg total) by mouth every 6 (six) hours as needed for up to 7 days. [facility] metoprolol succinate (TOPROL-XL) 25 MG 24 hr tablet 2022-07 15:23: 22 Yes 25mg QD Take 1 tablet (25 mg total) by mouth daily. [facility] varenicline (CHANTIX) 1 mg tablet 2022-07 15:23: 22 Yes 1mg Q.5D Take 1 tablet (1 mg total) by mouth 2 (two) times daily Give with meals and with a full glass of water.. [facility] albuterol HFA (VENTOLIN HFA) 90 mcg/actuati on inhaler 2022-07 15:23: 22 Yes 1{puff} Inhale 1 puff by mouth via inhaler every 6 (six) hours as needed for Wheezing. [facility] fluticasone -umeclidin- vilanter (Trelegy Ellipta) 200-62.5-25 mcg DsDv 2022-07 15:23: 22 Yes QD Inhale by mouth via inhaler daily. [facility] atorvastati n (LIPITOR) 20 MG tablet 2022-07 15:23: 22 Yes 20mg QD Take 1 tablet (20 mg total) by mouth daily. [facility] acetaminoph en-codeine (TYLENOL #3) 300-30 mg per tablet 2022-07 15:23: 22 Yes 1{tbl} Take 1 tablet by mouth every 4 (four) hours as needed for Pain. [facility] acetaminoph en-codeine (TYLENOL #3) 300-30 mg per tablet 2022-07 09:42: 02 Yes 1{tbl} Take 1 tablet by mouth every 4 (four) hours as needed for Pain. Max Daily Amount: 6 tablets [facility] varenicline (CHANTIX) 1 mg tablet 2022-07 09:40: 04 Yes 1mg Q.5D Take 1 tablet (1 mg total) by mouth 2 (two) times daily Give with meals and with a full glass of water.. [facility] albuterol HFA (VENTOLIN HFA) 90 mcg/actuati on inhaler 2022-07 09:40: 04 Yes 1{puff} Inhale 1 puff by mouth via inhaler every 6 (six) hours as needed for Wheezing. [facility] fluticasone -umeclidin- vilanter (Trelegy Ellipta) 200-62.5-25 mcg DsDv 2022-07 09:40: 04 Yes QD Inhale by mouth via inhaler daily. [facility] atorvastati n (LIPITOR) 20 MG tablet 2022-07 09:40: 04 Yes 20mg QD Take 1 tablet (20 mg total) by mouth daily. [facility] metoprolol succinate (TOPROL-XL) 25 MG 24 hr tablet 2022-07 09:13: 28 Yes 25mg QD Take 1 tablet (25 mg total) by mouth daily. [facility] Atorvastati n Calcium 20 MG oral Tablet 2022-07 0 00:00: 00 Yes 20mg Take 1 tablet (20 mg total) by mouth daily. Cynthia gonzalez Metoprolol Succinate 25 MG oral TABLET SR 24 HR 2022-07 0- 00:00: 00 Yes 25mg Take 1 tablet (25 mg total) by mouth daily. Cynthia gonzalez Nitroglycer in 0.4 MG sublingual SL Tab 2022-07 0 00:00: 00 Yes .4mg 1 tablet (0.4 mg total). Cynthia gonzalez Furosemide 40 MG oral Tablet 2022-07 0- 00:00: 00 Yes 40mg 1 tablet (40 [...] tablet (20 mg total) by mouth daily. [facility] aspirin 81 MG EC tablet 04-03 00:00: 00 07-02 23:59 :00 No 81mg QD Take 1 tablet (81 mg total) by mouth daily for 90 days. [facility] divalproex (DEPAKOTE) 500 MG EC tablet 04-03 00:00: 00 07-02 23:59 :00 No 500mg Q.5D Take 1 tablet (500 mg total) by mouth 2 (two) times daily for 90 days. [facility] lisinopriL (PRINIVIL,Z ESTRIL) 5 MG tablet 04-03 00:00: 00 05-28 00:00 :00 No 5mg QD Take 1 tablet (5 mg total) by mouth daily. [facility] clonazePAM (KlonoPIN) 0.5 MG tablet 04-03 00:00: 00 05-03 23:59 :00 No .25mg Take 0.5 tablets (0.25 mg total) by mouth 2 (two) times daily as needed for Anxiety for up to 30 days. Max Daily Amount: 0.5 mg [facility] HYDROcodone -acetaminop hen (NORCO 10-325) 10-325 mg per tablet 04-03 00:00: 00 04-13 23:59 :00 No 1{tbl} Take 1 tablet by mouth every 6 (six) hours as needed for up to 10 days. Max Daily Amount: 4 tablets [facility] methocarbam oL (ROBAXIN) 500 MG tablet 04-03 00:00: 00 04-13 23:59 :00 No 500mg Q.25D Take 1 tablet (500 mg total) by mouth 4 (four) times daily for 10 days. [facility] gabapentin (NEURONTIN) 300 MG capsule 04-02 00:00: 00 04-03 00:00 :00 No 300mg Q.[id number] 3D Take 1 capsule (300 mg total) by mouth 3 (three) times daily for 90 days. [facility] divalproex (DEPAKOTE) 500 MG EC tablet 04-02 00:00: 00 04-03 00:00 :00 No 500mg Q.5D Take 1 tablet (500 mg total) by mouth 2 (two) times daily for 90 days. [facility] clonazePAM (KlonoPIN) 0.5 MG tablet 04-02 00:00: 00 04-03 00:00 :00 No .25mg Take 0.5 tablets (0.25 mg total) by mouth 2 (two) times daily as needed for Anxiety for up to 30 days. Max Daily Amount: 0.5 mg [facility] HYDROcodone -acetaminop hen (NORCO 10-325) 10-325 mg per tablet 04-02 00:00: 00 04-03 00:00 :00 No 1{tbl} Take 1 tablet by mouth every 6 (six) hours as needed for up to 10 days. Max Daily Amount: 4 tablets [facility] methocarbam oL (ROBAXIN) 500 MG tablet 04-02 00:00: 00 04-03 00:00 :00 No 500mg Q.25D Take 1 tablet (500 mg total) by mouth 4 (four) times daily for 10 days. [facility] Metronidazo le 500 MG oral Tablet [...] member approving Restricted medication : Alfonso ALVARADO [facility] ketorolac (TORADOL) injection 15 mg 12-11 18:15: 00 12-11 17:25 :00 No 15mg 15 mg, Slow IV Push, ONCE, 1 dose, On Thu12/11/22 at 1315, MICHAEL [facility] iopamidol (ISOVUE 370-500 mL) injection 80 mL 12-11 16:30: 00 12-11 16:27 :00 No [id number] 80mL 80 mL, Intravenou s, ONCE, 1 dose, On Thu12/11/22 at 1130, Routine [facility] nitroglycer in (NITROL) 2 % ointment 0.5 Inch 12-11 15:30: 00 12-11 14:31 :00 No .5[in_u s] 0.5 Inch, Transderma l (Apply To Skin), ONCE, 1 dose, On Thu12/11/22 at 1030, [facility] aspirin chewable tablet 324 mg 12-11 15:30: 00 12-11 14:30 :00 No 324mg 324 mg, Oral, ONCE, 1 dose, On Thu12/11/22 at 1030, Routine [facility] ondansetron (ZOFRAN (PF)) injection 4 mg 12-11 15:30: 00 12-11 14:29 :00 No 4mg 4 mg, Slow IV Push, ONCE, 1 dose, On Thu12/11/22 at 1030, [facility] LORazepam (ATIVAN) injection 1 mg 12-11 15:00: 00 12-11 14:57 :00 No 1mg 1 mg, Slow IV Push, ONCE, 1 dose, On Thu12/11/22 at 1000, [facility] Lacosamide (VIMPAT) 100 mg tablet 12-11 00:00: 00 Yes [id number] 100mg Take 1 tablet by mouth in the morning and 1 tablet in the evening. [facility] acetaminoph en-codeine (TYLENOL #3) 300-30 mg tablet 1 tablet 11-18 05:30: 00 11-18 05:30 :00 No 1{tbl} 1 tablet, Oral, ONCE, 1 dose, On Thu11/18/22 at 0030, [facility] methocarbam oL (ROBAXIN) tablet 1,000 mg 11-18 05:30: 00 11-18 05:30 :00 No 1000mg 1,000 mg, Oral, ONCE, 1 dose, On Thu11/18/22 at 0030, [facility] ondansetron (ZOFRAN (PF)) injection 4 mg 11-18 04:45: 00 11-18 03:38 :00 No 4mg 4 mg, Slow IV Push, ONCE, 1 dose, On Thu11/17/22 at 2345, [facility] morpHINE (4 mg/mL) injection 4 mg 11-18 03:45: 00 11-18 03:38 :00 No 4mg 4 mg, Slow IV Push, ONCE, 1 dose, On Thu11/17/22 at 2245, Routine [facility] methocarbam oL (ROBAXIN) injection 1,000 mg 11-18 00:30: 00 11-17 23:47 :00 No 1000mg 1,000 mg, Intravenou s, ONCE, 1 dose, On Thu11/17/22 at 1930, MICHAEL [facility] methocarbam oL 500 mg tablet 11-18 00:00: 00 Yes [id number] 1000mg Take 2 tablets by mouth 4 (four) times daily as needed for Pain (scale 7-10). [facility] acetaminoph en-codeine 300-60 mg tablet 11-18 00:00: 00 11-26 04:59 :00 No [id number] 1{tbl} Take 1 tablet by mouth every 6 (six) hours as needed for Pain for up to 7 days. Indication s: acute pain [facility] ketorolac (TORADOL) injection 15 mg 11-18 00:00: 00 11-17 23:08 :00 No 15mg 15 mg, Slow IV Push, ONCE, 1 dose, On Thu11/17/22 at 1900, Routine [facility] morpHINE (4 mg/mL) injection 4 mg 11-17 23:45: 00 11-17 23:49 :00 No 4mg 4 mg, Slow IV Push, ONCE, 1 dose, On Thu11/17/22 at 1845, Routine [facility] ondansetron (ZOFRAN (PF)) injection 4 mg 11-17 23:15: 00 11-17 23:06 :00 No 4mg 4 mg, Slow IV Push, ONCE, 1 dose, On Thu11/17/22 at 1815, MICHAEL [facility] lisinopriL (PRINIVIL,Z ESTRIL) tablet 10 mg -14 15:00: 00 Yes 10mg 10 mg, Oral, DAILY, First dose on Thu08/02/22 at 0900, Until Discontinu ed, Routine [facility] predniSONE (DELTASONE) tablet 40 mg 08-02 15:00: 00 08-07 14:59 :00 No 40mg 40 mg, Oral, DAILY, 5 doses, First dose on Thu08/02/22 at 0900, Last dose on Thu08/06/22 at 0900, [facility] morpHINE (2 mg/mL) injection 2 mg 08-02 03:29: 15 Yes 2mg 2 mg, Slow IV Push, Q4HPRN, Starting on Thu08/01/22 at 2129, Until Discontinu ed, Routine, Pain (scale 7-10) [facility] levETIRAcet am (KEPPRA) in NACL (ISO-OS) 1,000 mg/100 mL RTU 08-02 00:00: 00 Yes 1000mg 1,000 mg, IV Piggyback, Q12H, First dose on Thu08/01/22 at 1800, Until Discontinu ed, Administer over 15 Minutes, 100 mL [facility] MULTIVITAMI N ORAL 08-01 23:49: 34 Yes 1{tbl} Take 1 Tab by mouth daily. [facility] omega-3 fatty acids-vitam in E (FISH OIL) 1,000 mg capsule 08-01 23:49: 34 Yes 1g Take 1 g by mouth daily. [facility] loratadine (CLARITIN LIQUI-GEL) 10 mg capsule 08-01 23:49: 34 Yes Take by mouth daily. [facility] ondansetron 4 mg tablet 08-01 23:49: 34 Yes 4mg Take 4 mg by mouth every 8 (eight) hours as needed. [facility] pantoprazol e 40 mg EC tablet 08-01 23:49: 34 Yes 40mg Take 40 mg by mouth daily. [facility] omega-3 fatty acids-vitam in E (FISH OIL) 1,000 mg capsule 08-01 23:49: 34 Yes 1g Take 1 g by mouth daily. [facility] benzonatate (TESSALON PERLES) capsule 100 mg 08-01 20:00: 00 Yes 100mg 100 mg, Oral, Q8H, First dose on Thu08/01/22 at 1400, Until Discontinu ed, Routine [facility] ipratropium -albuteroL (DUONEB) 0.5 mg-3 mg(2.5 mg base)/3 mL nebulizer solution 3 mL 08-01 18:00: 00 Yes 3mL 3 mL, Inhalation , QID, First dose on Thu08/01/22 at 1200, Until Discontinu ed, Routine [facility] ipratropium -albuteroL (DUONEB) 0.5 mg-3 mg(2.5 mg base)/3 mL nebulizer solution 3 mL 08-01 17:07: 07 Yes 3mL 3 mL, Inhalation , QIDPRN, Starting on Thu08/01/22 at 1107, Until Discontinu ed, MICHAEL, Wheezing, Shortness of Breath [facility] sulfur hexafluorid e microsphr (LUMASON) injection 5 mL 08-01 17:00: 00 08-01 17:00 :00 No [id number] 5mL 5 mL, Intravenou s, ONCE, 1 dose, On Thu08/01/22 at 1100, Routine
food court team member approving Restricted medication : WOODY MONTEZ [facility] pantoprazol e (PROTONIX) EC tablet 40 mg 08-01 15:00: 00 Yes 40mg 40 mg, Oral, DAILY, First dose on Thu08/01/22 at 0900, Until Discontinu ed, Routine [facility] aspirin chewable tablet 81 mg 08-01 15:00: 00 Yes 81mg 81 mg, Oral, DAILY, First dose on Thu08/01/22 at 0900, Until Discontinu ed, Routine [facility] amLODIPine (NORVASC) tablet 10 mg 08-01 15:00: 00 Yes 10mg 10 mg, Oral, DAILY, First dose on Thu08/01/22 at 0900, Until Discontinu ed, Routine [facility] levETIRAcet am (KEPPRA) tablet 500 mg 08-01 14:00: 00 08-01 23:56 :35 No 500mg 500 mg, Oral, BID, First dose on Thu08/01/22 at 0800, Until Discontinu ed, Routine [facility] carvediloL (COREG) tablet 6.25 mg 08-01 14:00: 00 08-01 17:29 :13 No 6.25mg 6.25 mg, Oral, BID MEALS, First dose on Thu08/01/22 at 0800, Until Discontinu ed, Routine [facility] levETIRAcet am (KEPPRA) in NACL (ISO-OS) 1,000 mg/100 mL RTU 08-01 06:45: 00 08-01 06:32 :00 No 1000mg 1,000 mg, IV Piggyback, ONCE, 1 dose, On Thu08/01/22 at 0045, Administer over 15 Minutes, 100 mL [facility] LORazepam (ATIVAN) injection 1 mg 08-01 05:52: 54 Yes 1mg 1 mg, Slow IV Push, Q4HPRN, Starting on Thu07/31/22 at 2352, Until Discontinu ed, Routine, Seizures, Agitation, Anxiety, ETOH / Cocaine Withdrawl [facility] foLIC acid (FOLATE) tablet 1 mg 08-01 05:45: 00 Yes 1mg 1 mg, Oral, DAILY, First dose on Thu07/31/22 at 2345, Until Discontinu ed, Routine [facility] thiamine (VITAMIN B1) tablet 100 mg 08-01 05:45: 00 Yes 100mg 100 mg, Oral, DAILY, First dose on Thu07/31/22 at 2345, Until Discontinu ed, Routine [facility] LORazepam (ATIVAN) injection 0.5 mg 08-01 05:30: 00 08-01 05:29 :00 No .5mg 0.5 mg, Slow IV Push, ONCE, 1 dose, On Thu07/31/22 at 2330, MICHAEL [facility] atorvastati n (LIPITOR) tablet 40 mg 08-01 03:00: 00 Yes 40mg 40 mg, Oral, QHS, First dose on Thu07/31/22 at 2100, Until Discontinu ed, Routine [facility] diphenhydrA MINE (BENADRYL) tablet 25 mg 08-01 00:32: 02 Yes 25mg 25 mg, Oral, Q6HPRN, Starting on Thu07/31/22 at 1832, Until Discontinu ed, Routine, Itching [facility] enoxaparin (LOVENOX) injection 40 mg 07-31 23:00: 00 Yes 40mg 40 mg, Subcutaneo us, DAILY, First dose on Thu07/31/22 at 1700, Until Discontinu ed, Routine [facility] morpHINE (2 mg/mL) injection 2 mg 07-31 23:00: 00 07-31 22:29 :00 No 2mg 2 mg, Slow IV Push, ONCE, 1 dose, On Thu07/31/22 at 1700, Routine [facility] HYDROcodone -acetaminop hen (NORCO) 10-325 mg tablet 1 tablet 07-31 22:01: 36 Yes 1{tbl} 1 tablet, Oral, Q6HPRN, Starting on Thu07/31/22 at 1601, Until Discontinu ed, Routine, Pain (scale 7-10) [facility] HYDROcodone -acetaminop hen (NORCO 5) 5-325 mg tablet 1 tablet 07-31 22:01: 34 08-02 22:00 :34 No 1{tbl} 1 tablet, Oral, Q6HPRN, Starting on Thu07/31/22 at 1601, Until 08/02/22 at 1600, Routine, Pain (scale 4-6) [facility] acetaminoph en (TYLENOL) tablet 650 mg 07-31 22:01: 33 Yes 650mg 650 mg, Oral, Q6HPRN, Starting on Arpita 07/31/22 at 1601, Until Discontinu ed, Routine, Pain (scale 1-3) [facility] ketorolac (TORADOL) injection 15 mg 07-31 21:45: 00 07-31 20:50 :00 No 15mg 15 mg, Slow IV Push, ONCE, 1 dose, On Arpita 07/31/22 at 1545, Routine [facility] ondansetron (ZOFRAN (PF)) injection 4 mg 07-31 21:00: 00 07-31 20:47 :00 No 4mg 4 mg, Slow IV Push, ONCE, 1 dose, On Arpita 07/31/22 at 1500, MICHAEL [facility] furosemide (LASIX) injection 40 mg 07-31 20:15: 00 Yes 40mg 40 mg, Slow IV Push, Q12H, First dose on Arpita 07/31/22 at 1415, Until Discontinu ed, Routine [facility] methylpredn isolone sod succ (SOLU-MEDRO L) injection 125 mg 07-31 19:30: 00 07-31 18:54 :00 No 125mg 125 mg, Slow IV Push, ONCE NOW, 1 dose, On Arpita 07/31/22 at 1330, MICHAEL [facility] ipratropium -albuteroL (DUONEB) 0.5 mg-3 mg(2.5 mg base)/3 mL nebulizer solution 3 mL 07-31 19:30: 00 07-31 18:48 :00 No 3mL 3 mL, Inhalation , ONCE, 1 dose, On Arpita 07/31/22 at 1330, MICHAEL [facility] pantoprazol e 40 mg EC tablet 07-31 17:15: 40 Yes 40mg Take 40 mg by mouth daily. [facility] MULTIVITAMI N ORAL 07-31 15:50: 57 Yes 1{tbl} Take 1 Tab by mouth daily. [facility] loratadine (CLARITIN LIQUI-GEL) 10 mg capsule 07-31 15:50: 57 Yes Take by mouth daily. [facility] ondansetron 4 mg tablet 07-31 15:50: 57 Yes 4mg Take 4 mg by mouth every 8 (eight) hours as needed. [facility] omega-3 fatty acids-vitam in E (FISH OIL) 1,000 mg capsule 07-31 15:21: 27 Yes 1g Take 1 g by mouth daily. [facility] TAKE ONE (1) TABLET(S) BY MOUTH THREE TIMES A DAY NEEDED. 07-28 00:00: 00 No Methylpredn isolone 4 mg tablet 2021-07 00:00: 00 05-12 04:59 :00 No [id number] 4mg Take 1 tablet through enteral tube in the morning for 1 dose. [facility] Methylpredn isolone 4 mg tablet 2021-07 00:00: 00 05-11 04:59 :00 No [id number] 4mg Take 1 tablet through enteral tube every 12 (twelve) hours for 2 doses. [facility] MULTIVITAMI N ORAL 2021-07 14:44: 48 Yes 1{tbl} Take 1 Tab by mouth daily. [facility] omega-3 fatty acids-vitam in E (FISH OIL) 1,000 mg capsule 2021-07 14:44: 48 Yes 1g Take 1 g by mouth daily. [facility] loratadine (CLARITIN LIQUI-GEL) 10 mg capsule 2021-07 14:44: 48 Yes Take by mouth daily. [facility] ondansetron (ZOFRAN) 4 mg tablet 2021-07 14:44: 48 Yes 4mg Take 4 mg by mouth every 8 (eight) hours as needed. [facility] pantoprazol e (PROTONIX) 40 mg EC tablet 2021-07 14:44: 48 Yes 40mg Take 40 mg by mouth daily. [facility] DULoxetine (CYMBALTA) capsule 30 mg 2021-07 14:00: 00 Yes 30mg 30 mg, Oral, DAILY, First dose on Thu05/08/22 at 0900, Until Discontinu ed, [facility]ine [facility] divalproex (DEPAKOTE) EC tablet 1,000 mg 2021-07 13:00: 00 Yes 1000mg 1,000 mg, Oral, BID, First dose (after last modificati on) on Thu05/08/22 at 0800, Until Discontinu ed, Routine [facility] Methylpredn isolone (MEDROL) tablet 4 mg 2021-07 08:50: 10 05-09 08:59 :00 No 4mg 4 mg, Oral, Q8H TAPER, 3 doses, First dose on Thu05/08/22 at 0400, Last dose on Thu05/08/22 at 2000, Routine [facility] acetaminoph en-codeine (TYLENOL #3) 300-30 mg tablet 1 tablet 2021-07 04:07: 01 Yes 1{tbl} 1 tablet, Oral, Q4HPRN, Starting on Thu05/07/22 at 2307, Until Discontinu ed, Routine, Pain (scale 7-10) [facility] morpHINE (2 mg/mL) injection 2 mg 2021-07 03:03: 15 Yes 2mg 2 mg, Slow IV Push, Q4HPRN, Starting on Thu05/07/22 at 2203, Until Discontinu ed, Routine, Pain (scale 7-10) [facility] LORazepam (ATIVAN) tablet 1 mg 2021-07 00:02: 18 Yes 1mg 1 mg, Oral, Q6HPRN, Starting on Thu05/07/22 at 1902, Until Discontinu ed, Routine, Anxiety [facility] cyclobenzap rine 5 mg tablet 2021-07 00:00: 00 Yes [id number] 5mg Take 1 tablet by mouth in the morning and 1 tablet at noon and 1 tablet in the evening. [facility] DULoxetine (CYMBALTA) 30 mg capsule 2021-07 00:00: 00 06-08 05:59 :00 No [id number] 60mg Take 2 capsules by mouth in the morning for 30 days. [facility] divalproex (DEPAKOTE) 250 mg EC tablet 2021-07 00:00: 06-08 05:59 :00 No [id number] 750mg Take 3 tablets by mouth every 8 (eight) hours for 30 days. [facility] LORazepam 1 mg tablet 2021-07 00:00: 05-19 04:59 :00 No [id number] 1mg Take 1 tablet by mouth every 6 (six) hours as needed for Anxiety or Agitation for up to 10 days. [facility] acetaminoph en-codeine 300-30 mg tablet 2021-07 00:00: 00 05-16 04:59 :00 No [id number] 1{tbl} Take 1 tablet by mouth every 4 (four) hours as needed for Pain (scale 7-10) for up to 7 days. Indication s: acute pain [facility] Methylpredn isolone 4 mg tablet 2021-07 00:00: 00 05-10 04:59 :00 No [id number] 4mg Take 1 tablet by mouth every 8 (eight) hours for 3 doses. [facility] divalproex (DEPAKOTE) EC tablet 750 mg 2021-07 01:00: 00 05-08 09:40 :23 No 750mg 750 mg, Oral, BID, First dose on Thu05/06/22 at 2000, Until Discontinu ed, Routine [facility] levETIRAcet am (KEPPRA) tablet 1,500 mg 2021-07 13:00: 00 05-06 18:38 :22 No 1500mg 1,500 mg, Oral, BID, First dose (after last modificati on) on Thu05/06/22 at 0800, Until Discontinu ed, Routine [facility] levETIRAcet am (KEPPRA) in NACL (ISO-OS) 1,000 mg/100 mL RTU 2021-07 05:00: 00 05-06 05:46 :00 No 1000mg 1,000 mg, IV Piggyback, ONCE, 1 dose, On Thu05/06/22 at 0000, Administer over 15 Minutes, 100 mL [facility] methocarbam oL (ROBAXIN) tablet 500 mg 2021-07 02:15: 00 05-06 23:21 :42 No 500mg 500 mg, Oral, QID, First dose on Thu05/05/22 at 2115, Until Discontinu ed, Routine [facility] LORazepam (ATIVAN) tablet 2 mg 2021-07 01:30: 00 05-06 01:03 :00 No 2mg 2 mg, Oral, ONCE, 1 dose, On Thu05/05/22 at 2030, Routine [facility] levETIRAcet am (KEPPRA) tablet 1,000 mg 2021-07 01:00: 00 05-06 04:48 :06 No 1000mg 1,000 mg, Oral, BID, First dose on Thu05/05/22 at 2000, Until Discontinu ed, Routine [facility] enoxaparin (LOVENOX) injection 40 mg 2021-07 00:15: 00 Yes 40mg 40 mg, Subcutaneo us, Q24H, First dose on Thu05/05/22 at 1915, Until Discontinu ed, Routine [facility] levETIRAcet am (KEPPRA) in NACL (ISO-OS) 1,000 mg/100 mL RTU 2021-07 19:45: 00 05-05 20:05 :00 No 1000mg 1,000 mg, IV Piggyback, ONCE, 1 dose, On Thu05/05/22 at 1445, Administer over 15 Minutes, 100 mL [facility] clonazePAM (KLONOPIN) tablet 0.5 mg 2021-07 19:30: 00 Yes .5mg 0.5 mg, Oral, BID, First dose on Thu05/05/22 at 1430, Until Discontinu ed, Routine [facility] ibuprofen (IBU) tablet 600 mg 2021-07 19:30: 00 Yes 600mg 600 mg, Oral, TID MEALS, First dose on Thu05/05/22 at 1430, Until Discontinu ed, Routine [facility] gabapentin (NEURONTIN) capsule 300 mg 2021-07 19:30: 00 Yes 300mg 300 mg, Oral, TID, First dose on Thu05/05/22 at 1430, Until Discontinu ed, Routine [facility] cyclobenzap rine (FLEXERIL) tablet 5 mg 2021-07 19:30: 00 Yes 5mg 5 mg, Oral, TID, First dose on Thu05/05/22 at 1430, Until Discontinu ed, Routine [facility] acetaminoph en (TYLENOL) tablet 1,000 mg 2021-07 19:30: 00 Yes 1000mg 1,000 mg, Oral, Q8H, First dose on Thu05/05/22 at 1430, Until Discontinu ed, Routine [facility] pantoprazol e (PROTONIX) EC tablet 40 mg 2021-07 14:00: 00 Yes 40mg 40 mg, Oral, DAILY, First dose on Thu05/05/22 at 0900, Until Discontinu ed, Routine [facility] docusate (COLACE) capsule 100 mg 2021-07 14:00: 00 Yes 100mg 100 mg, Oral, DAILY, First dose on Thu05/05/22 at 0900, Until Discontinu ed, Routine [facility] HYDROcodone -acetaminop hen (NORCO) 10-325 mg tablet 1 tablet 2021-07 10:32: 02 05-05 19:18 :52 No 1{tbl} 1 tablet, Oral, Q6HPRN, Starting on Thu05/05/22 at 0532, Until Thu05/05/22 at 1418, Routine, Pain (scale 7-10) [facility] ondansetron (ZOFRAN (PF)) injection 4 mg 2021-07 06:49: 57 Yes 4mg 4 mg, Slow IV Push, Q6HPRN, Starting on Thu05/05/22 at 0149, Until Discontinu ed, Routine, Nausea and Vomiting (N/V) [facility] HYDROcodone -acetaminop hen (NORCO 5) 5-325 mg tablet 1 tablet 2021-07 06:49: 41 05-05 10:32 :14 No 1{tbl} 1 tablet, Oral, Q6HPRN, Starting on Thu05/05/22 at 0149, Until Thu05/05/22 at 0532, Routine, Pain (scale 7-10) [facility] acetaminoph en (TYLENOL) tablet 325 mg 2021-07 06:49: 39 05-05 19:18 :52 No 325mg 325 mg, Oral, Q4HPRN, Starting on Thu05/05/22 at 0149, Until Thu05/05/22 at 1418, Routine, Pain (scale 4-6) [facility] ondansetron (ZOFRAN) tablet 4 mg 2021-07 04:00: 00 05-05 03:26 :00 No 4mg 4 mg, Oral, ONCE, 1 dose, On Thu05/04/22 at 2300, Routine [facility] morpHINE (2 mg/mL) injection 2 mg 2021-07 04:00: 00 05-05 03:26 :00 No 2mg 2 mg, Slow IV Push, ONCE, 1 dose, On Thu05/04/22 at 2300, Routine [facility] aspirin 81 mg chewable tablet 04-16 00:00: 00 Yes [id number] 81mg Take 1 tablet by mouth in the morning. [facility] MULTIVITAMI N ORAL 04-15 17:39: 14 Yes 1{tbl} Take 1 Tab by mouth daily. [facility] omega-3 fatty acids-vitam in E (FISH OIL) 1,000 mg capsule 04-15 17:39: 14 Yes 1g Take 1 g by mouth daily. [facility] loratadine (CLARITIN LIQUI-GEL) 10 mg capsule 04-15 17:39: 14 Yes Take by mouth daily. [facility] ondansetron (ZOFRAN) 4 mg tablet 04-15 17:39: 14 Yes 4mg Take 4 mg by mouth every 8 (eight) hours as needed. [facility] pantoprazol e (PROTONIX) 40 mg EC tablet 04-15 17:39: 14 Yes 40mg Take 40 mg by mouth daily. [facility] lisinopril- hydrochloro thiazide 20-12.5 mg per tablet 04-15 15:58: 35 04-15 00:00 :00 No 1{tbl} Take 1 tablet by mouth daily. [facility] levetiracet am (KEPPRA ORAL) 04-15 15:58: 35 04-15 00:00 :00 No Take by mouth. [facility] acetaminoph en-codeine (TYLENOL #4) 300-60 mg tablet 1 tablet 04-15 05:39: 23 04-15 14:39 :42 No 1{tbl} 1 tablet, Oral, Q6HPRN, Starting on Thu04/15/22 at 0039, Until Thu04/15/22 at 0939, Routine, Pain (scale 4-6), Pain (scale 1-3) [facility] LORazepam (ATIVAN) tablet 2 mg 04-15 03:30: 00 04-15 10:27 :00 No 2mg 2 mg, Oral, ONCE, 1 dose, On Thu04/14/22 at 2230, Routine [facility] levETIRAcet am (KEPPRA) tablet 1,000 mg 04-15 02:45: 00 Yes 1000mg 1,000 mg, Oral, BID, First dose (after last modificati on) on Thu04/14/22 at 2145, Until Discontinu ed, Routine [facility] ketorolac (TORADOL) injection 15 mg 04-15 02:13: 00 04-15 02:22 :00 No 15mg 15 mg, Slow IV Push, ONCE, 1 dose, On Thu04/14/22 at 2115, Routine [facility] atorvastati n 40 mg tablet 04-15 00:00: 00 Yes [id number] 40mg Take 1 tablet by mouth at bedtime. [facility] levETIRAcet am 1,000 mg tablet 04-15 00:00: 00 05-08 00:00 :00 No [id number] 1000mg Take 1 tablet by mouth in the morning and 1 tablet in the evening. [facility] lidocaine 5 % (700 mg/patch) patch 04-15 00:00: 00 04-23 04:59 :00 No [id number] 1{patch } Apply 1 Patch to area(s) in the morning for 7 days. [facility] HYDROcodone -acetaminop hen 5-325 mg tablet 04-15 00:00: 00 04-21 04:59 :00 No [id number] 1{tbl} Take 1 tablet by mouth every 6 (six) hours as needed for Pain (scale 7-10) for up to 5 days. Indication s: acute pain [facility] lidocaine (LIDODERM) 5 % (700 mg/patch) patch 1 Patch 04-14 21:45: 29 Yes 1{patch } 1 Patch, Topical, Administer over 12 Hours, [id number], Starting on Thu04/14/22 at 1645, Until Discontinu ed, Routine, Localized pain [facility] aspirin chewable tablet 81 mg 04-14 21:30: 00 Yes 81mg 81 mg, Oral, DAILY, First dose on Thu04/14/22 at 1630, Until Discontinu ed, Routine [facility] acetaminoph en (TYLENOL) tablet 650 mg 04-14 21:29: 25 Yes 650mg 650 mg, Oral, Q6HPRN, Starting on Thu04/14/22 at 1629, Until Discontinu ed, Routine, Pain (scale 1-3), Temp > 38.5 C, Temp > 37.5 C [facility] HYDROcodone -acetaminop hen (NORCO) 10-325 mg tablet 1 tablet 04-14 21:29: 02 04-15 05:39 :41 No 1{tbl} 1 tablet, Oral, Q6HPRN, Starting on Thu04/14/22 at 1629, Until Thu04/15/22 at 0039, Routine, Pain (scale 7-10), Pain (scale 4-6) [facility] sulfur hexafluorid e microsphr (LUMASON) injection 5 mL 04-14 16:45: 00 04-14 16:45 :00 No [id number] 5mL 5 mL, Intravenou s, ONCE, 1 dose, On Thu04/14/22 at 1145, Routine
food court team member approving Restricted medication : G[facility] [employer] [facility] clopidogreL (PLAVIX) 75 mg tablet 75 mg 04-14 14:00: 00 Yes 75mg 75 mg, Oral, DAILY, First dose on Thu04/14/22 at 0900, Until Discontinu ed, Routine [facility] pantoprazol e (PROTONIX) EC tablet 40 mg 04-14 14:00: 00 Yes 40mg 40 mg, Oral, DAILY, First dose on Thu04/14/22 at 0900, Until Discontinu ed, Routine [facility] atorvastati n (LIPITOR) tablet 40 mg 04-14 02:00: 00 Yes 40mg 40 mg, Oral, QHS, First dose on Thu04/13/22 at 2100, Until Discontinu ed, Routine [facility] LORazepam (ATIVAN) tablet 1 mg 04-14 01:30: 00 04-14 01:45 :00 No 1mg 1 mg, Oral, ONCE, 1 dose, On Thu04/13/22 at 2030, Routine [facility] methocarbam oL (ROBAXIN) tablet 500 mg 04-14 01:00: 00 Yes 500mg 500 mg, Oral, QID, First dose on Thu04/13/22 at 2000, Until Discontinu ed, Routine [facility] heparin (porcine) injection 5,000 Units 04-14 01:00: 00 Yes 5000U 5,000 Units, Subcutaneo , Q12H, First dose on Thu04/13/22 at 2000, Until Discontinu ed, Routine [facility] acetaminoph en (TYLENOL) tablet 650 mg 04-14 00:23: 25 04-14 21:29 :42 No 650mg 650 mg, Oral, Q6HPRN, Starting on 04/13/22 at 1923, Until 04/14/22 at 1629, Routine, Pain (scale 1-3), Pain (scale 4-6), Temp > 38.5 C, Temp > 37.5 C [facility] lidocaine (LIDODERM) 5 % (700 mg/patch) patch 1 Patch 04-14 00:22: 00 04-14 13:51 :00 No 1{patch } 1 Patch, Topical, Administer over 12 Hours, ONCE, 1 dose, On Thu04/13/22 at 1930, Routine [facility] FENTanyl PF (SUBLIMAZE (PF)) injection 50 mcg 04-13 20:30: 00 04-13 19:22 :00 No 50ug 50 mcg, Slow IV Push, ONCE, 1 dose, On Thu04/13/22 at 1530, Routine [facility] aspirin chewable tablet 650 mg 04-13 20:15: 00 04-13 20:15 :00 No 650mg 650 mg, Oral, ONCE, 1 dose, On Thu04/13/22 at 1515, Routine [facility] clopidogreL (PLAVIX) 300 mg tablet 300 mg 04-13 20:00: 00 04-13 19:15 :00 No 300mg 300 mg, Oral, ONCE, 1 dose, On Thu04/13/22 at 1500, Routine [facility] ondansetron (ZOFRAN (PF)) injection 4 mg 04-13 19:30: 00 04-13 19:22 :00 No 4mg 4 mg, Slow IV Push, ONCE, 1 dose, On Thu04/13/22 at 1430, MICHAEL [facility] iopamidol (ISOVUE 370-500 mL) injection 100 mL 04-13 18:31: 00 04-13 18:32 :00 No [id number] 100mL 100 mL, Intravenou s, ONCE, 1 dose, On 04/13/22 at 1345, Routine [facility] NaCl 0.9% (NS) injection 5 mL 04-13 18:14: 11 Yes 5mL 5 mL, Slow IV Push, PRN - SEE INSTRUCTIO NS, Starting on 04/13/22 at 1314, Until Discontinu ed, 10 mL [facility] aspirin chewable tablet 324 mg 11-24 14:00: 00 Yes 324mg 324 mg, Oral, DAILY, First dose on 11/24/21 at 0900, Until Discontinu ed, Routine [facility] metoclopram iker HCl (REGLAN) injection 10 mg 11-23 22:30: 00 11-23 21:24 :00 No 10mg 10 mg, Slow IV Push, ONCE, 1 dose, On 11/23/21 at 1730, [facility] acetaminoph en (TYLENOL) tablet 1,000 mg 11-23 22:15: 00 11-23 21:09 :00 No 1000mg 1,000 mg, Oral, ONCE, 1 dose, On 11/23/21 at 1715, [facility] ondansetron (ZOFRAN (PF)) injection 4 mg 11-23 21:45: 00 11-23 20:30 :00 No 4mg 4 mg, Slow IV Push, ONCE, 1 dose, On 11/23/21 at 1645, [facility] NaCl 0.9% (NS) bolus infusion 1,000 mL 11-23 21:30: 00 11-23 21:56 :00 No 1000mL at 999 mL/hr, 1,000 mL, IV Infusion, ONCE, 1 dose, On 11/23/21 at 1630, [facility] LORazepam (ATIVAN) injection 4 mg 11-23 21:30: 00 11-23 20:23 :00 No 4mg 4 mg, Slow IV Push, ONCE, 1 dose, On 11/23/21 at 1630, STAT [facility] levETIRAcet am (KEPPRA) in NACL (ISO-OS) 1,500 mg/100 mL RTU 2021-0 11-23 21:30: 00 11-23 20:47 :00 No 1500mg 1,500 mg, IV Piggyback, ONCE, 1 dose, On 11/23/21 at 1630, Administer over 15 Minutes, 100 mL [facility] Dose Unknown 2021-0 4-08 00:00: [...] y
Durat ion of Therapy: 7 days [facility] morpHINE injection 4 mg 03-17 01:58: 00 03-17 02:13 :00 No 4mg 4 mg, Slow IV Push, ONCE, 1 dose, 03/16/21 at 2100, STAT [facility] ondansetron (ZOFRAN (PF)) injection 4 mg 03-17 01:58: 00 03-17 02:12 :00 No 4mg 4 mg, Slow IV Push, ONCE, 1 dose, 03/16/21 at 2100, MICHAEL [facility] ipratropium -albuteroL (DUONEB) 0.5 mg-3 mg(2.5 mg base)/3 mL nebulizer solution 3 mL 03-17 01:57: 00 03-17 02:15 :00 No 3mL 3 mL, Inhalation , ONCE, 1 dose, 03/16/21 at 2100, [facility] NaCl 0.9% (NS) IV infusion 1,000 mL 03-17 01:57: 00 03-17 03:07 :00 No 1000mL at 999 mL/hr, Intravenou s, ONCE, 1 dose, 03/16/21 at 2100, [facility] methylpredn isolone sod succ (SOLU-MEDRO L) injection 125 mg 03-17 01:57: 00 03-17 02:11 :00 No 125mg 125 mg, Slow IV Push, ONCE, 1 dose, 03/16/21 at 2100, STAT [facility] levoFLOXaci n 500 mg tablet 03-17 00:00: 00 03-24 04:59 :00 No [id number] 500mg Take 1 tablet by mouth daily for 6 days. [facility] predniSONE 10 mg tablet 03-17 00:00: 00 03-22 04:59 :00 No [id number] 30mg Take 3 tablets by mouth daily for 4 days. [facility] dexamethaso ne (DECADRON) injection 10 mg 03-15 01:45: 00 03-15 00:45 :00 No [id number] 10mg 10 mg, Intramuscu lar, ONCE, 1 dose, Arpita 03/14/21 at 2044, Routine [facility] albuterol (VENTOLIN) inhaler 4 Puff 03-15 01:45: 00 03-15 00:44 :00 No [id number] 4{puff} 4 Puff, Inhalation , ONCE, 1 dose, Arpita 03/14/21 at 2044, Routine [facility] albuterol 2.5 mg /3 mL (0.083 %) nebulizer solution 2021-0 8-27 00:00: 00 Yes [id number] 2.5mg Inhale 3 mL every 4 (four) hours as needed for Wheezing or Shortness of Breath. [facility] levETIRAcet am (KEPPRA) in NACL (ISO-OS) 1,000 mg/100 mL RTU 02-19 20:15: 00 02-19 19:30 :00 No 1000mg 1,000 mg, IV Infusion, ONCE, 1 dose, 02/19/21 at 1515, Administer over 15 Minutes, 100 mL [facility] levetiracet am (KEPPRA ORAL) 02-19 19:45: 33 Yes Take by mouth. [facility] LISINOPRIL- HYDROCHLORO THIAZIDE ORAL 02-19 19:41: 15 02-19 00:00 :00 No Take by mouth. [facility] dicyclomine (BENTYL) injection 20 mg 02-19 19:15: 00 02-19 19:04 :00 No 20mg 20 mg, Intramuscu lar, ONCE, 1 dose, 02/19/21 at 1415, Routine [facility] proMETHazin e (PHENERGAN) 25 mg in NaCl 0.9% (NS) 50 mL piggyback 02-19 19:15: 00 02-19 19:03 :00 No 25mg 25 mg, IV Piggyback, ONCE, 1 dose, 02/19/21 at 1415, 50 mL [facility] morpHINE injection 4 mg 02-19 17:15: 00 02-19 17:05 :00 No 4mg 4 mg, Slow IV Push, ONCE, 1 dose, 02/19/21 at 1215, STAT [facility] NaCl 0.9% (NS) bolus infusion 1,000 mL 02-19 17:15: 00 02-19 19:04 :00 No 1000mL at 999 mL/hr, 1,000 mL, IV Infusion, ONCE, 1 dose, 02/19/21 at 1215, STAT [facility] ondansetron (ZOFRAN (PF)) injection 4 mg 02-19 17:00: 00 02-19 15:59 :00 No 4mg 4 mg, Slow IV Push, ONCE, 1 dose, Thu02/19/21 at 1200, MICHAEL [facility] iopamidol (ISOVUE 370-500 mL) injection 100 mL 02-19 16:35: 00 02-19 16:45 :00 No [id number] 100mL 100 mL, Intravenou s, ONCE, 1 dose, Thu02/19/21 at 1145, Routine [facility] levetiracet am (KEPPRA ORAL) 02-19 14:45: 33 Yes Take by mouth. [facility] proMETHazin e 25 mg tablet 02-19 00:00: 00 Yes [id number] 25mg Take 1 tablet by mouth every 6 (six) hours as needed for Nausea and Vomiting (N/V). [facility] dicyclomine 20 mg tablet 02-19 00:00: 00 Yes [id number] 20mg Take 1 tablet by mouth 4 (four) times daily as needed for Abdominal pain. [facility] ZONISAMIDE 100 mg capsule 11-15 00:00: 00 02-19 00:00 :00 No TAKE 1 CAPSULE BY MOUTH TWICE A DAY [facility] ondansetron (ZOFRAN) 4 mg tablet 02-09 20:05: 01 Yes 4mg Take 4 mg by mouth every 8 (eight) hours as needed. [facility] pantoprazol e (PROTONIX) 40 mg EC tablet 02-09 20:05: 01 Yes 40mg Take 40 mg by mouth daily. [facility] LISINOPRIL- HYDROCHLORO THIAZIDE ORAL 02-09 20:05: 01 Yes Take by mouth. [facility] lisinopril- hydrochloro thiazide 20-12.5 mg per tablet 02-09 20:03: 30 Yes 1{tbl} Take 1 tablet by mouth daily. [facility] omega-3 fatty acids-vitam in E (FISH OIL) 1,000 mg capsule 02-09 19:59: 52 Yes 1g Take 1 g by mouth daily. [facility] MULTIVITAMI N ORAL 02-09 19:58: 14 Yes 1{tbl} Take 1 Tab by mouth daily. [facility] loratadine (CLARITIN LIQUI-GEL) 10 mg capsule 02-09 19:58: 14 Yes Take by mouth daily. [facility] ondansetron (ZOFRAN) 4 mg tablet 02-09 15:05: 01 Yes 4mg Take 4 mg by mouth every 8 (eight) hours as needed. [facility] pantoprazol e (PROTONIX) 40 mg EC tablet 02-09 15:05: 01 Yes 40mg Take 40 mg by mouth daily. [facility] lisinopril- hydrochloro thiazide 20-12.5 mg per tablet 02-09 15:03: 30 Yes 1{tbl} Take 1 tablet by mouth daily. [facility] omega-3 fatty acids-vitam in E (FISH OIL) 1,000 mg capsule 02-09 14:59: 52 Yes 1g Take 1 g by mouth daily. [facility] MULTIVITAMI N ORAL 02-09 14:58: 14 Yes 1{tbl} Take 1 Tab by mouth daily. [facility] loratadine (CLARITIN LIQUI-GEL) 10 mg capsule 02-09 14:58: 14 Yes Take by mouth daily. [facility] proMETHazin e (PHENERGAN) 25 mg tablet 11-20 00:00: 00 02-19 00:00 :00 No 25mg Take 1 tablet by mouth every 6 (six) hours as needed for Nausea and Vomiting (N/V). [facility] carvedilol (COREG) 6.25 mg tablet 09-19 00:00: 00 Yes 6.25mg Take 1 Tab by mouth 2 (two) times daily with meals. [facility] amLODIPine (NORVASC) 10 mg tablet 09-19 00:00: 00 Yes 10mg Take 1 Tab by mouth daily. [facility] lisinopril (PRINIVIL,Z ESTRIL) 40 mg tablet 09-19 00:00: 00 Yes 40mg Take 1 Tab by mouth daily. [facility] Immunizations Ordered Immunization Name Filled Immunization Name Date Status Comments Source SARS-COV-2 COVID-19 PFIZER BA-SUCROSE VACCINE (ROSE TOP) 2022-02-19 00:00:00 Completed [facility] SARS-COV-2 COVID-19 PFIZER BA-SUCROSE VACCINE (ROSE TOP) 2022-02-19 00:00:00 Completed [facility] SARS-COV-2 COVID-19 PFIZER BA-SUCROSE VACCINE (ROSE TOP) 2022-02-19 00:00:00 Completed [facility] SARS-COV-2 COVID-19 PFIZER BA-SUCROSE VACCINE (ROSE TOP) 2022-02-19 00:00:00 Completed [facility] SARS-COV-2 COVID-19 PFIZER BA-SUCROSE VACCINE (ROSE TOP) 2022-02-19 00:00:00 Completed [facility] SARS-COV-2 COVID-19 PFIZER BA-SUCROSE VACCINE (ROSE TOP) 2022-02-19 00:00:00 Completed [facility] SARS-COV-2 COVID-19 PFIZER BA-SUCROSE VACCINE (ROSE TOP) 2022-02-19 00:00:00 Completed [facility] SARS-COV-2 COVID-19 PFIZER BA-SUCROSE VACCINE (ROSE TOP) 2022-02-19 00:00:00 Completed [facility] SARS-COV-2 COVID-19 PFIZER BA-SUCROSE VACCINE (ROSE TOP) 2022-02-19 00:00:00 Completed [facility] SARS-COV-2 COVID-19 PFIZER VACCINE 2021-05-24 00:00:00 Completed [facility] SARS-COV-2 COVID-19 PFIZER VACCINE 2021-05-24 00:00:00 Completed [facility] SARS-COV-2 COVID-19 PFIZER VACCINE 2021-05-24 00:00:00 Completed [facility] SARS-COV-2 COVID-19 PFIZER VACCINE 2021-05-24 00:00:00 Completed [facility] SARS-COV-2 COVID-19 PFIZER VACCINE 2021-05-24 00:00:00 Completed [facility] SARS-COV-2 COVID-19 PFIZER VACCINE 2021-05-24 00:00:00 Completed [facility] SARS-COV-2 COVID-19 PFIZER VACCINE 2021-05-24 00:00:00 Completed [facility] SARS-COV-2 COVID-19 PFIZER VACCINE 2021-05-24 00:00:00 Completed [facility] SARS-COV-2 COVID-19 PFIZER VACCINE 2021-05-24 00:00:00 Completed [facility] SARS-COV-2 COVID-19 PFIZER VACCINE 2021-05-24 00:00:00 Completed [facility] SARS-COV-2 COVID-19 PFIZER VACCINE 2021-05-24 00:00:00 Completed [facility] SARS-COV-2 COVID-19 PFIZER VACCINE 2021-05-03 00:00:00 Completed [facility] SARS-COV-2 COVID-19 PFIZER VACCINE 2021-05-03 00:00:00 Completed [facility] SARS-COV-2 COVID-19 PFIZER VACCINE 2021-05-03 00:00:00 Completed [facility] SARS-COV-2 COVID-19 PFIZER VACCINE 2021-05-03 00:00:00 Completed [facility] SARS-COV-2 COVID-19 PFIZER VACCINE 2021-05-03 00:00:00 Completed [facility] SARS-COV-2 COVID-19 PFIZER VACCINE 2021-05-03 00:00:00 Completed [facility] SARS-COV-2 COVID-19 PFIZER VACCINE 2021-05-03 00:00:00 Completed [facility] SARS-COV-2 COVID-19 PFIZER VACCINE 2021-05-03 00:00:00 Completed [facility] SARS-COV-2 COVID-19 PFIZER VACCINE 2021-05-03 00:00:00 Completed [facility] SARS-COV-2 COVID-19 PFIZER VACCINE 2021-05-03 00:00:00 Completed [facility] SARS-COV-2 COVID-19 PFIZER VACCINE 2021-05-03 00:00:00 Completed [facility] SARS-COV-2 COVID-19 PFIZER VACCINE 2021-05-03 00:00:00 Completed [facility] SARS-COV-2 COVID-19 PFIZER VACCINE Unknown Completed [facility] SARS-COV-2 COVID-19 PFIZER VACCINE Unknown Completed [facility] SARS-COV-2 COVID-19 PFIZER BA-SUCROSE VACCINE (ROSE TOP) Unknown Completed [facility] Vital Signs Vital Name [...] Systolic blood pressure 2023-08-12 21:00:00 130 mm[Hg] [facility] Diastolic blood pressure 2023-08-12 21:00:00 85 mm[Hg] [facility] Heart rate 2023-08-12 21:00:00 106 /min [facility] Respiratory rate 2023-08-12 21:00:00 14 /min [facility] Oxygen saturation in Arterial blood by Pulse oximetry 2023-08-12 21:00:00 95 /min [facility] Body temperature 2023-08-12 20:34:54 37.22 [facility] Body height 2023-08-12 19:47:00 157.5 cm [facility] Body weight 2023-08-12 19:47:00 81.647 kg [facility] BMI 2023-08-12 19:47:00 32.92 kg/m2 [facility] WEIGHT 2023-06-16 05:26:00 86.047 kg [...] Systolic blood pressure 2022-12-11 20:00:00 142 mm[Hg] [facility] Diastolic blood pressure 2022-12-11 20:00:00 90 mm[Hg] [facility] Respiratory rate 2022-12-11 20:00:00 24 /min [facility] Heart rate 2022-12-11 18:00:00 101 /min [facility] Oxygen saturation in Arterial blood by Pulse oximetry 2022-12-11 18:00:00 93 /min [facility] BMI 2022-12-11 13:55:00 35.43 kg/m2 [facility] Body temperature 2022-12-11 13:55:00 37.22 Radha [facility] Body weight 2022-12-11 13:55:00 90.719 kg [facility] Systolic blood pressure 2022-11-18 05:34:00 152 mm[Hg] [facility] Diastolic blood pressure 2022-11-18 05:34:00 98 mm[Hg] [facility] Heart rate 2022-11-18 05:34:00 88 /min [facility] Respiratory rate 2022-11-18 05:34:00 18 /min [facility] Oxygen saturation in Arterial blood by Pulse oximetry 2022-11-18 05:34:00 97 /min [facility] Body temperature 2022-11-17 22:28:00 37.06 Radha [facility] Body height 2022-11-17 22:28:00 160 cm [facility] Body weight 2022-11-17 22:28:00 99.791 kg [facility] BMI 2022-11-17 22:28:00 38.97 kg/m2 [facility] Heart rate 2022-08-02 02:02:00 108 /min [facility] Respiratory rate 2022-08-02 02:02:00 28 /min [facility] Oxygen saturation in Arterial blood by Pulse oximetry 2022-08-02 02:02:00 97 /min [facility] Body temperature 2022-08-02 01:00:00 36.44 Radha [facility] Systolic blood pressure 2022-08-01 23:29:00 145 mm[Hg] [facility] Diastolic blood pressure 2022-08-01 23:29:00 103 mm[Hg] [facility] Body weight 2022-08-01 09:16:00 97.977 kg [facility] BMI 2022-08-01 09:16:00 38.26 kg/m2 [facility] Body height 2022-07-31 21:54:00 160 cm [facility] Systolic blood pressure 2022-05-08 16:40:00 146 mm[Hg] [facility] Diastolic blood pressure 2022-05-08 16:40:00 96 mm[Hg] [facility] Heart rate 2022-05-08 16:40:00 112 /min [facility] Body temperature 2022-05-08 16:40:00 36.78 Radha [facility] Respiratory rate 2022-05-08 16:40:00 18 /min [facility] Oxygen saturation in Arterial blood by Pulse oximetry 2022-05-08 16:40:00 94 /min [facility] Body height 2022-05-05 23:44:00 160 cm [facility] Body weight 2022-05-05 23:37:00 81.647 kg [facility] BMI 2022-05-05 23:37:00 31.89 kg/m2 [facility] Systolic blood pressure 2022-04-15 18:52:00 104 mm[Hg] [facility] Diastolic blood pressure 2022-04-15 18:52:00 82 mm[Hg] [facility] Heart rate 2022-04-15 18:52:00 114 /min [facility] Oxygen saturation in Arterial blood by Pulse oximetry 2022-04-15 18:52:00 98 /min [facility] Body temperature 2022-04-15 16:14:00 36.28 Radha [facility] Respiratory rate 2022-04-15 16:14:00 17 /min [facility] Body height 2022-04-13 21:08:00 160 cm [facility] Body weight 2022-04-13 21:08:00 91.173 kg [facility] BMI 2022-04-13 21:08:00 35.61 kg/m2 [facility] Systolic blood pressure 2021-11-23 21:30:00 132 mm[Hg] [facility] Diastolic blood pressure 2021-11-23 21:30:00 76 mm[Hg] [facility] Heart rate 2021-11-23 21:30:00 95 /min [facility] Respiratory rate 2021-11-23 21:30:00 13 /min [facility] Oxygen saturation in Arterial blood by Pulse oximetry 2021-11-23 21:30:00 97 /min [facility] Body temperature 2021-11-23 20:15:00 37.56 Radha [facility] Systolic blood pressure 2021-03-17 03:00:00 117 mm[Hg] [facility] Diastolic blood pressure 2021-03-17 03:00:00 76 mm[Hg] [facility] Heart rate 2021-03-17 03:00:00 104 /min [facility] Respiratory rate 2021-03-17 03:00:00 28 /min [facility] Oxygen saturation in Arterial blood by Pulse oximetry 2021-03-17 03:00:00 96 /min [facility] Body temperature 2021-03-17 00:39:00 37.11 Radha [facility] Body height 2021-03-17 00:39:00 160 cm [facility] Body weight 2021-03-17 00:39:00 58.968 kg [facility] BMI 2021-03-17 00:39:00 23.03 kg/m2 [facility] Systolic blood pressure 2021-03-15 00:14:00 149 mm[Hg] [facility] Diastolic blood pressure 2021-03-15 00:14:00 78 mm[Hg] [facility] Heart rate 2021-03-15 00:14:00 100 /min [facility] Body temperature 2021-03-15 00:14:00 37.33 Radha [facility] Respiratory rate 2021-03-15 00:14:00 24 /min [facility] Body height 2021-03-15 00:14:00 160 cm [facility] Body weight 2021-03-15 00:14:00 58.968 kg [facility] BMI 2021-03-15 00:14:00 23.03 kg/m2 [facility] Oxygen saturation in Arterial blood by Pulse oximetry 2021-03-15 00:14:00 98 /min [facility] Systolic blood pressure 2021-02-19 18:00:00 131 mm[Hg] [facility] Diastolic blood pressure 2021-02-19 18:00:00 80 mm[Hg] [facility] Heart rate 2021-02-19 18:00:00 83 /min [facility] Respiratory rate 2021-02-19 18:00:00 18 /min [facility] Oxygen saturation in Arterial blood by Pulse oximetry 2021-02-19 18:00:00 100 /min [facility] Body temperature 2021-02-19 15:47:00 37 Radha [facility] Body height 2021-02-19 15:47:00 160 cm [facility] Body weight 2021-02-19 15:47:00 58.968 kg [facility] BMI 2021-02-19 15:47:00 23.03 kg/m2 [facility] Heart rate 2023-09-08 08:54:00 118 /min [facility] Respiratory rate 2023-09-08 08:54:00 21 /min [facility] Oxygen saturation in Arterial blood by Pulse oximetry 2023-09-08 08:54:00 100 /min [facility] Systolic blood pressure 2023-09-08 08:32:00 110 mm[Hg] [facility] Diastolic blood pressure 2023-09-08 08:32:00 77 mm[Hg] [facility] Body temperature 2023-09-08 08:32:00 36.06 Radha [facility] Body height 2023-09-04 00:58:00 157.5 cm [facility] Body weight 2023-09-04 00:58:00 80 kg [facility] BMI 2023-09-04 00:58:00 32.26 kg/m2 [facility] Heart rate 2023-06-16 17:00:00 108 /min [facility] Systolic blood pressure 2023-06-16 15:31:00 101 mm[Hg] [facility] Diastolic blood pressure 2023-06-16 15:31:00 81 mm[Hg] [facility] Body temperature 2023-06-16 15:31:00 36.61 Radha [facility] Respiratory rate 2023-06-16 15:31:00 18 /min [facility] Oxygen saturation in Arterial blood by Pulse oximetry 2023-06-16 15:31:00 94 /min [facility] Body weight 2023-06-16 05:26:00 86.047 kg [facility] BMI 2023-06-16 05:26:00 33.60 kg/m2 [facility] Body height 2023-06-13 04:00:00 160 cm [facility] Systolic blood pressure 2023-06-04 13:02:00 93 mm[Hg] [facility] Diastolic blood pressure 2023-06-04 13:02:00 57 mm[Hg] [facility] Heart rate 2023-06-04 13:02:00 101 /min [facility] Respiratory rate 2023-06-04 13:02:00 22 /min [facility] Oxygen saturation in Arterial blood by Pulse oximetry 2023-06-04 13:02:00 95 /min room air [facility] Body temperature 2023-06-04 11:46:00 35.28 Radha [facility] Systolic blood pressure 2023-05-28 16:00:00 154 mm[Hg] [facility] Diastolic blood pressure 2023-05-28 16:00:00 82 mm[Hg] [facility] Heart rate 2023-05-28 16:00:00 89 /min [facility] Body temperature 2023-05-28 16:00:00 36.67 Radha [facility] Respiratory rate 2023-05-28 16:00:00 16 /min [facility] Oxygen saturation in Arterial blood by Pulse oximetry 2023-05-28 16:00:00 97 /min [facility] Body height 2023-05-28 07:00:00 157.5 cm [facility] Body weight 2023-05-28 07:00:00 87.544 kg [facility] BMI 2023-05-28 07:00:00 35.30 kg/m2 [facility] Body height 2023-05-26 09:12:00 157.5 cm [facility] Body weight 2023-05-26 09:12:00 87.091 kg [facility] BMI 2023-05-26 09:12:00 35.12 kg/m2 [facility] Respiratory rate 2023-04-02 16:35:00 18 /min [facility] Oxygen saturation in Arterial blood by Pulse oximetry 2023-04-02 16:35:00 98 /min [facility] Systolic blood pressure 2023-04-02 12:00:00 147 mm[Hg] [facility] Diastolic blood pressure 2023-04-02 12:00:00 97 mm[Hg] [facility] Heart rate 2023-04-02 12:00:00 106 /min [facility] Body temperature 2023-04-02 12:00:00 36.28 Radha [facility] Body height 2023-03-30 02:14:00 157.5 cm [facility] Body weight 2023-03-30 02:14:00 92.08 kg [facility] BMI 2023-03-30 02:14:00 37.13 kg/m2 [facility] Respiratory rate 2022-08-03 14:40:00 18 /min [facility] Systolic blood pressure 2022-08-03 12:13:00 112 mm[Hg] [facility] Diastolic blood pressure 2022-08-03 12:13:00 77 mm[Hg] [facility] Heart rate 2022-08-03 12:13:00 115 /min [facility] Oxygen saturation in Arterial blood by Pulse oximetry 2022-08-03 12:13:00 93 /min [facility] Body temperature 2022-08-03 12:00:00 36.83 Radha [facility] Body height 2022-08-02 21:52:00 160.2 cm [facility] Body weight 2022-08-02 21:52:00 95 kg [facility] BMI 2022-08-02 21:52:00 37.02 kg/m2 [facility] BP Systolic 2022-07-24 13:31:00 136 mm[Hg] [...] Clinician Source POCT-GLUCOSE METER 2023-09-08 08:40:00 [facility] CBC W/PLT COUNT & AUTO DIFFERENTIAL 2023-09-08 04:16:00 [facility] BASIC METABOLIC PANEL 2023-09-08 04:16:00 [facility] MAGNESIUM 2023-09-08 04:16:00 [facility] PHOSPHORUS 2023-09-08 04:16:00 [facility] CBC W/PLT COUNT & AUTO DIFFERENTIAL 2023-09-08 04:16:00 [facility] POCT-GLUCOSE METER 2023-09-07 21:29:00 [facility] XR KNEE 3 VIEWS LEFT 2023-09-07 [facility] LEGS BILATERAL 2023-09-07 12:45:00 [facility] CBC W/PLT COUNT & AUTO DIFFERENTIAL 2023-09-07 03:17:00 [facility] BASIC METABOLIC PANEL 2023-09-07 03:17:00 [facility] MAGNESIUM 2023-09-07 03:17:00 [facility] PHOSPHORUS 2023-09-07 03:17:00 [facility] CBC W/PLT COUNT & AUTO DIFFERENTIAL 2023-09-07 03:17:00 [facility] POCT-GLUCOSE METER 2023-09-06 21:17:00 [facility] POCT-GLUCOSE METER 2023-09-06 18:37:00 [facility] POCT-GLUCOSE METER 2023-09-06 13:16:00 [facility] POCT-GLUCOSE METER 2023-09-06 08:21:00 [facility] CBC W/PLT COUNT & AUTO DIFFERENTIAL 2023-09-06 04:49:00 [facility] BASIC METABOLIC PANEL 2023-09-06 04:49:00 [facility] MAGNESIUM 2023-09-06 04:49:00 [facility] PHOSPHORUS 2023-09-06 04:49:00 [facility] CBC W/PLT COUNT & AUTO DIFFERENTIAL 2023-09-06 04:49:00 [facility] POCT-GLUCOSE METER 2023-09-05 21:24:00 [facility] MR BRAIN WITH & WITHOUT IV CONTRAST 2023-09-05 11:25:07 Sandi Aleman [facility] POCT-GLUCOSE METER 2023-09-05 08:10:00 [facility] CBC W/PLT COUNT & AUTO DIFFERENTIAL 2023-09-05 04:44:00 [facility] BASIC METABOLIC PANEL 2023-09-05 04:44:00 [facility] MAGNESIUM 2023-09-05 04:44:00 [facility] PHOSPHORUS 2023-09-05 04:44:00 [facility] POCT-GLUCOSE METER 2023-09-05 04:44[facility] W/[facility] COUNT & AUTO DIFFERENTIAL 2023-09-05 04:44:00 [facility] POCT-GLUCOSE METER 2023-09-04 21:38:00 [facility] POCT-GLUCOSE METER 2023-09-04 15:42[facility]00 [facility]-COV2/INFLUENZA/RSV RT-PCR 2023-09-04 11:25:00 U[facility] POCT-GLUCOSE METER 2023-09-04 10:53:00 Sabas Pankaj [facility] POCT-GLUCOSE METER 2023-09-04 08:04:00 Sabas Pankaj [facility] PROCALCITONIN 2023-09-04 06:56:00 [facility] IRON, TIBC, % SAT. (WITHOUT FERRITIN) 2023-09-04 06:56:00 [facility] FERRITIN 2023-09-04 06:56:00 Uli [facility] BLOOD CULTURE 2023-09-04 06:37:00 [facility] WITHOUT IV CONTRAST 2023-09-04 05:47:25 Melvi [facility] MR THORACIC SPINE WITHOUT IV CONTRAST 2023-09-04 04:53:00 [place] Ogden [facility] MR CERVICAL SPINE WITHOUT IV CONTRAST 2023-09-04 04:18:00 [place] Ogden [facility] CT THORACIC SPINE WITHOUT IV CONTRAST 2023-09-04 03:08:[address] [facility] L[facility] SPINE WITHOUT IV CONTRAST 2023-09-04 03:08:00 [facility] LACTIC ACID, VENOUS 2023-09-04 01:42:00 [facility] TYPE AND SCREEN, AUTOMATED 2023-09-04 01:42:00 [facility] CBC W/PLT COUNT & AUTO DIFFERENTIAL 2023-09-04 00:51:00 Melvi [facility] COMPREHENSIVE METABOLIC PANEL 2023-09-04 00:51:00 Melvi [facility] MAGNESIUM 2023-09-04 00:51:00 Melvi [facility] PHOSPHORUS 2023-09-04 00:51:00 Melvi [facility] PROTHROMBIN TIME/INR 2023-09-04 00:51:00 Melvi [facility] APTT 2023-09-04 00:51:00 Melvi [facility] B-TYPE NATRIURETIC FACTOR (BNP) 2023-09-04 00:51:00 Melvi [facility] URINALYSIS WITHOUT MICROSCOPIC 2023-09-04 00:51:00 Melvi [facility] RAPID DRUG SCREEN, URINE 2023-09-04 00:51:00 Melvi [facility] D-DIMER 2023-09-04 00:51:00 London Loyola [facility] FIBRINOGEN 2023-09-04 00:51:00 [facility] CBC W/PLT COUNT & AUTO DIFFERENTIAL 2023-09-04 00:51:00 Melvi [facility] EKG-SCANNED 2023-09-04 00:00:00 Eliceo Montanez [facility] LACTIC ACID WHOLE BLOOD 2023-08-12 20:31:00 Brian Bryan [facility] COMP. METABOLIC PANEL (94282) 2023-08-12 20:29:00 Brian Bryan [facility] CBC WITH DIFF 2023-08-12 20:29:00 BryanBrian [facility] CONSENT/REFUSAL FOR DIAGNOSI S AND TREATMENT 2023-08-12 19:43:16 Doctor Unassigned, Omar [facility] TRANSESOPHAGEAL ECHO 2023-06-16 11:05:00 Torrey [facility] T SPOT TB 2023-06-15 04:51:00 [facility] FUNGITELL R B-D-GLUCAN WITH REFLEX TO TITER 2023-06-15 04:51:00 [facility] ASPERGILLUS GALACTOMANNAN ANTIGEN 2023-06-15 04:51:00 [facility] VANCOMYCIN LEVEL, TROUGH 2023-06-15 04:51:00 Kaylene Mendosa [facility] T-SPOT(R).TB (QUEST) 2023-06-15 04:27:00 System, Provider Not In [facility] T-SPOT(R).TB (QUEST) 2023-06-15 04:27:00 System, Provider Not In [facility] ECHO W CONTRAST & DOPPLER 2023-06-14 09:22:00 [facility] HEMOGLOBIN A1C 2023-06-14 04:08:00 Cara Burgess [facility] CBC (HEMOGRAM ONLY) 2023-06-14 04:08:00 [facility] BASIC METABOLIC PANEL 2023-06-14 04:08:00 [facility] CRYPTOCOCCAL ANTIGEN 2023-06-13 17:21:00 [facility]-1 [facility] W/HIV-1&2 AB 2023-06-13 17:21:00 [facility] VENOUS DOPPLER ARM, LEFT 2023-06-13 17:20:00 Cara Burgess [facility] LEGIONELLA ANTIGEN, URINE 2023-06-13 17:00:[facility] + GRAM STAIN 2023-06-13 14:33:[address] [facility] MR LUMBAR SPINE WITH & WITHOUT IV CONTRAST 2023-06-13 13:03:47 Burt Nelson [facility] ECG 12-LEAD 2023-06-13 11:47:02 Abbi [facility] ECG 12-LEAD 2023-06-13 11:47:02 Unknown, Hl7 [facility] ECG 12-LEAD 2023-06-13 11:47:02 Unknown, Hl7 [facility] MRSA SCREEN 2023-06-13 09:19:00 Abbi [facility] CBC W/PLT COUNT & AUTO DIFFERENTIAL 2023-06-13 06:03:00 [facility] COMPREHENSIVE METABOLIC PANEL 2023-06-13 06:03:00 [facility] PROTHROMBIN TIME/INR 2023-06-13 06:03:00 [facility] CREATINE KINASE (CK) 2023-06-13 06:03:00 [facility] CBC W/PLT COUNT & AUTO DIFFERENTIAL 2023-06-13 06:03:00 [facility] BLOOD CULTURE 2023-06-13 06:02:00 [facility] CBC W/PLT COUNT & AUTO DIFFERENTIAL 2023-06-02 04:41:00 Sunil Chu [facility] BASIC METABOLIC PANEL 2023-06-02 04:41:00 Sunil Chu [facility] MAGNESIUM 2023-06-02 04:41:00 Sunil Chu [facility] PHOSPHORUS 2023-06-02 04:41:00 Sunil Chu [facility] CBC W/PLT COUNT & AUTO DIFFERENTIAL 2023-06-02 04:41:00 Sunil Chu [facility] XR SPINE LUMBAR 1 VIEW 2023-06-01 10:31:00 Adam Garcia [facility] XR SPINE LUMBAR 1 VIEW 2023-06-01 09:46:00 Adam Garcia [facility] LAMINECTOMY, SPINE, LUMBAR 2023-06-01 09:10:00 Adam Garcia [facility] PROCEDURE W/ C-ARM 2023-06-01 09:10:00 Jose Adam C [facility] LAMINECTOMY, SPINE, LUMBAR 2023-06-01 07:30:00 Adam Garcia [facility] PROCEDURE W/ C-ARM 2023-06-01 07:30:00 Adam Garcia [facility] SCREEN, URINE 2023-06-01 04:33:00 [place] [facility] BASIC METABOLIC PANEL 2023-05-31 22:55:00 Patricia [facility] CBC W/PLT COUNT & AUTO DIFFERENTIAL 2023-05-31 22:55:00 Patricia [facility] PT/APTT 2023-05-31 22:55:00 Dallas Gomez [facility] CBC W/PLT COUNT & AUTO DIFFERENTIAL 2023-05-31 22:55:00 Dallas Gomez [facility] CT NECK SOFT TISSUE WITHOUT IV CONTRAST 2023-05-31 09:39:30 [facility] TYPE AND SCREEN, AUTOMATED 2023-05-31 09:13:00 [facility] BASIC METABOLIC PANEL 2023-05-29 06:43:00 [facility] CBC W/PLT COUNT & AUTO DIFFERENTIAL 2023-05-29 06:43:00 [facility] CBC W/PLT COUNT & AUTO DIFFERENTIAL 2023-05-29 06:43:00 [facility] XR SPINE CERVICAL 2 OR 3 VIEWS 2023-05-28 18:57:00 [facility] FL FLUORO NON-SPECIFIC UP TO 1 HOUR 2023-05-28 10:48:00 Doni Garciain [facility] [place] FLUORO NON-SPECIFIC UP TO 1 HOUR 2023-05-28 10:07:00 Jose Adam [facility] DISCECTOMY, SPINE, CERVICAL, ANTERIOR APPROACH, WITH FUSION 2023-05-28 08:15:00 [facility] INSERTION, HARDWARE, SPINAL 2023-05-28 08:15:00 [facility] PROCEDURE, ALLOGRAFT, FOR SPINE SURGERY 2023-05-28 08:15:00 [place] [facility] AUTOGRAFT FOR SPINE SURGERY 2023-05-28 08:15:00 [place] [facility] PROCEDURE W/ C-ARM 2023-05-28 08:15:00 [place] [facility] NEUROPHYSIOLOGIC MONITORING, INTRAOPERATIVE 2023-05-28 08:15:00 [place] [facility] PROCEDURE, USING OPERATING MICROSCOPE 2023-05-28 08:15:00 [place] [facility] HCG, QUANTITATIVE, 2023-05-28 07:42:00 Yue Bui [facility] TYPE AND SCREEN, AUTOMATED 2023-05-28 07:42:00 Ketan Scruggs [facility] XR CHEST 1 VIEW PORTABLE / BEDSIDE 2023-04-01 15:32:16 Valerio [facility] B-TYPE NATRIURETIC FACTOR (BNP) 2023-04-01 13:32:00 [facility] ECHO W CONTRAST & DOPPLER 2023-03-31 20:18:37 Jasen [facility] MR CERVICAL SPINE WITHOUT IV CONTRAST 2023-03-31 09:25:00 Selin Lewis [facility] CBC (HEMOGRAM ONLY) 2023-03-31 03:45:00 Jasen [facility] COMPREHENSIVE METABOLIC PANEL 2023-03-31 03:45:00 Jasen [facility] ARTERIAL DOPPLER LEGS BILATERAL 2023-03-30 15:45:00 Jasen [facility] ARTERIAL (ALEISHA'S W/ DOPPLER) ONLY 2023-03-30 15:44:00 Peteneena [facility] ECG 12-LEAD 2023-03-30 13:06:22 Jevonlia [facility] ECG 12-LEAD 2023-03-30 13:06:22 Unknown, Hl7 [facility] ECG 12-LEAD 2023-03-30 13:06:22 Unknown, Hl7 [facility] MR THORACIC SPINE WITHOUT IV CONTRAST 2023-03-30 12:29:58 Eric, [facility] MR LUMBAR SPINE WITHOUT IV CONTRAST 2023-03-30 11:58:00 Eric [facility] EEG AWAKE AND DROWSY 2023-03-30 09:57:53 [facility] VALPROIC ACID LEVEL, TOTAL 2023-03-30 09:06:[address] [facility] URINALYSIS W/ REFLEX URINE CULTURE 2023-03-30 03:54:00 Eric [facility] CBC (HEMOGRAM ONLY) 2023-03-30 03:52:00 [facility] COMPREHENSIVE METABOLIC PANEL 2023-03-30 03:52:00 [facility] HEMOGLOBIN A1C 2023-03-30 03:52:00 [facility] PT/APTT 2023-03-30 03:52:00 Thomas Lozoya [facility] EKG-SCANNED 2023-03-29 00:00:00 Provider, Default Scanning [facility] CT HEAD WO CONTRAST 2022-12-11 18:36:49 Alfonso Alvarado [facility] URINE DRUG (IMMUNOASSAY) - COMPREHENSIVE DRUG SCREEN 2022-12-11 17:13:00 Alfonso Alvarado [facility] URINALYSIS 2022-12-11 17:13:00 Alfonso Alvarado [facility] CT CHEST PULMONARY ANGIOGRAM 2022-12-11 16:26:39 Alfonso Alvarado [facility] MAGNESIUM 2022-12-11 14:57:00 Alfonso Alvarado [facility] COMP. METABOLIC PANEL ([id number]) 2022-12-11 14:57:00 Alfonso Alvarado [facility] D-DIMER 2022-12-11 14:15:00 Alfonso Alvarado [facility] XR CHEST 1 VW 2022-12-11 14:10:26 Alfonso Alvarado [facility] TROPONIN I 2022-12-11 14:02:00 Alfonso Alvarado [facility] CBC WITH DIFF 2022-12-11 14:02:00 Alfonso Alvarado Lorelei [facility] N-TERMINAL PRO-BNP 2022-12-11 14:02:00 Alfonso Alvarado [facility] HB ECG ROUTINE & RHYTHM STRIP 2022-12-11 14:01:08 Alfonso Alvarado [facility] CONSENT/REFUSAL FOR DIAGNOSI S AND TREATMENT 2022-12-11 13:52:01 Doctor Unassigned, Omar [facility] ECG 12-LEAD 2022-08-03 05:03:32 Unknown, Hl7 Doctor [facility] ECG 12-LEAD 2022-08-03 05:03:32 Unknown, Hl7 Doctor [facility] LIPID PANEL 2022-08-02 21:14:00 [facility] TSH/FREE T4 IF INDICATED 2022-08-02 21:14:00 [facility] VITAMIN B12 2022-08-02 21:14:00 [facility] HEMOGLOBIN A1C 2022-08-02 21:14:00 [facility] COMPREHENSIVE METABOLIC PANEL 2022-08-02 21:14:00 [facility] CBC W/PLT COUNT & AUTO DIFFERENTIAL 2022-08-02 21:14:00 [facility] RPR 2022-08-02 21:14:00 [facility] HC LAB HIV-1 AG W/HIV-1&2 AB 2022-08-02 21:14:00 Hightower Donaldo [facility] C-REACTIVE PROTEIN 2022-08-02 21:14:00 Donaldo Hightower [facility] CBC W/PLT COUNT & AUTO DIFFERENTIAL 2022-08-02 21:14:00 HightowerDonaldo [facility] EKG-SCANNED 2022-08-02 00:00:00 Provider, Default Scanning [facility] CT HEAD WO CONTRAST 2022-08-01 23:52:15 Lorenza Lowry [facility] GALV ONLY - INFLUENZA A B RS V PCR 2022-08-01 18:28:00 Letitia Chambers [facility] TRANSTHORACIC ECHO (TTE) COMPLETE W/ CONTRAST 2022-08-01 14:42:00 [facility] 2022-08-01 10:42:00 [facility] BASIC METABOLIC PANEL (NA, K , CL, CO2, GLUCOSE, BUN, CREATININE, CA) 2022-08-01 10:42:00 [facility] CBC WITH DIFF 2022-08-01 10:42:00 [facility] N-TERMINAL PRO-BNP 2022-08-01 10:42:00 [facility]SE (AUTOMATED) 2022-08-01 06:56:00 [facility] CRITICAL CARE 2022-07-31 22:31:[address] [facility] URINALYSIS 2022-07-31 20:52:[address] [facility] URINE DRUG (IMMUNOASSAY) - COMPREHENSIVE DRUG SCREEN W/O REFLEX 2022-07-31 20:52:00 Sav Rondon [facility] XR CHEST 1 VW 2022-07-31 18:45:17 Alcon Sav [facility] LIPASE 2022-07-31 17:58:[address] [facility] TROPONIN I 2022-07-31 17:58:[address] [facility] COMP. METABOLIC PANEL ([id number]) 2022-07-31 17:58:00 Sav Rondon [facility] CBC WITH DIFF 2022-07-31 17:58:00 Sav Rondon [facility] PROTHROMBIN TIME / INR 2022-07-31 17:58:00 Sav Rondon [facility] ACTIVATED PARTIAL THRMPLAS DAVID 2022-07-31 17:58:00 Sav Rondon [facility] N-TERMINAL PRO-BNP 2022-07-31 17:58:00 Sav Rondon [facility] HB ECG ROUTINE & RHYTHM STRIP 2022-07-31 17:46:28 Sav Rondon [facility] NOTICE OF PRIVACY PRACTICES 2022-07-31 17:35:38 Doctor Unassigned, Omar [facility] CONSENT/REFUSAL FOR DIAGNOSI S AND TREATMENT 2022-07-31 17:35:13 Doctor Unassigned, Omar [facility] PHOSPHORUS 2022-05-08 05:51:[address] [facility] MAGNESIUM 2022-05-08 05:51:[address] [facility] BASIC METABOLIC PANEL (NA, K , CL, CO2, GLUCOSE, BUN, CREATININE, CA) 2022-05-08 05:51:[address] [facility] CBC WITH DIFF 2022-05-08 05:51:[address] [facility] BASIC METABOLIC PANEL (NA, K , CL, CO2, GLUCOSE, BUN, CREATININE, CA) 2022-05-07 07:09:00 John Cintron [facility] CBC WITH DIFF 2022-05-07 07:09:00 John Cintron [facility] POCT GLUCOSE (AUTOMATED) 2022-05-07 01:16:00 Brandyn Ibrahim [facility] HB ABO GROUPING 2022-05-06 05:07:00 Ismael Dunn [facility] BASIC METABOLIC PANEL (NA, K , CL, CO2, GLUCOSE, BUN, CREATININE, CA) 2022-05-06 05:04:[address] [facility] CBC WITH DIFF 2022-05-06 05:04:[address] [facility] KEPPRA (LEVETIRACETAM) 2022-05-06 05:04:00 Azeem Meehan [facility] MR LUMBAR SPINE WO CONTRAST 2022-05-06 02:54:37 Ender Monet [facility] ELECTROENCEPHALOGRAM 2022-05-06 00:00:00 John Cintron [facility] BASIC METABOLIC PANEL (NA, K , CL, CO2, GLUCOSE, BUN, CREATININE, CA) 2022-05-05 07:57:00 [facility] 2022-05-05 07:57:00 Ismael Dunn [facility] PROTHROMBIN TIME / INR 2022-05-05 07:57:00 Ismael Dunn [facility] ACTIVATED PARTIAL THRMPLAS DAVID 2022-05-05 07:57:00 Ismael Dunn [facility] FIBRINOGEN 2022-05-05 07:57:00 Ismael Dunn [facility] EMERGENCY SERVICES AGREEMENT S AND AUTHORIZATIONS 2022-05-04 05:01:00 Doctor Unassigned, Omar [facility] VITAMIN D, 25-OH 2022-04-15 16:53:00 Sen Toledo [facility] MR THORACIC SPINE WO CONTRAST 2022-04-15 11:56:19 Harshil [facility] MR CERVICAL SPINE WO CONTRAST 2022-04-15 11:20:00 Harshil [facility] BASIC METABOLIC PANEL (NA, K , CL, CO2, GLUCOSE, BUN, CREATININE, CA) 2022-04-15 10:36:00 Charmaine Morataya [facility] TEST, URINE 2022-04-15 04:39:00 Harshil [facility] URINE DRUG (IMMUNOASSAY) - COMPREHENSIVE DRUG SCREEN 2022-04-15 04:39:00 Harshil [facility] URINALYSIS 2022-04-15 04:39:00 Harshil [facility] TRANSTHORACIC ECHO (TTE) COMPLETE W/ CONTRAST 2022-04-14 16:37:03 Harshil [facility] KEPPRA (LEVETIRACETAM) 2022-04-14 15:30:00 Harshil [facility] MAGNESIUM 2022-04-14 10:03:00 Harshil [facility] BASIC METABOLIC PANEL (NA, K , CL, CO2, GLUCOSE, BUN, CREATININE, CA) 2022-04-14 10:03:00 Harshil [facility] MR LUMBAR SPINE WO CONTRAST 2022-04-14 02:48:12 Harshil [facility] MR STROKE BRAIN WO CONTRAST 2022-04-14 02:29:00 Harshil [facility] CT STROKE ANGIOGRAM HEAD 2022-04-13 18:40:00 Sapna Vargas [facility] CT STROKE ANGIOGRAM NECK 2022-04-13 18:40:00 Sapna Vargas [facility] CT STROKE HEAD WO CONTRAST 2022-04-13 18:36:00 Sapna Vargas [facility] TROPONIN I 2022-04-13 18:17:00 Sapna Vargas [facility] THYROID STIMULATING HORMONE 2022-04-13 18:17:00 Harshil [facility] BASIC METABOLIC PANEL (NA, K , CL, CO2, GLUCOSE, BUN, CREATININE, CA) 2022-04-13 18:17:00 Sapna Vargas [facility] LIPID PANEL ([id number])(TOTAL CHOLESTEROL, TRIGLYCERIDES, HDL) 2022-04-13 18:17:00 Harshil [facility] CBC WITHOUT DIFF 2022-04-13 18:17:00 Sapna Vargas [facility] GLYCOSYLATED HEMOGLOBIN (A1C) 2022-04-13 18:17:00 Harshil [facility] PROTHROMBIN TIME / INR 2022-04-13 18:17:00 Sapna Vargas [facility] ACTIVATED PARTIAL THRMPLAS DAVID 2022-04-13 18:17:00 Sapna Vargas [facility] COVID-19 (ID NOW RAPID TESTING) 2022-04-13 18:17:00 Sapna Vargas [facility] LAB ONLY COVID INTERPRETATION 2022-04-13 18:17:00 Sapna Vargas [facility] HB ECG ROUTINE & RHYTHM STRIP 2022-04-13 18:15:49 Sapna Vargas [facility] CONSENT/REFUSAL FOR DIAGNOSI S AND TREATMENT 2022-04-13 18:05:14 Doctor Unassigned, Omar [facility] HOSPITAL ADMISSION 2022-04-13 05:01:00 Doctor Unassigned, Omar [facility] SARS-COV-2 COVID-19 VACCINE 12 YRS+,0.3ML,IM (PFIZER - ROSE TOP) 2022-02-19 15:21:12 Doctor Unassigned, Omar [facility] URINE DRUG (IMMUNOASSAY) - COMPREHENSIVE DRUG SCREEN W/O REFLEX 2021-11-23 21:21:00 Nichelle Virk [facility] CT HEAD WO CONTRAST 2021-11-23 20:58:00 Nichelle Virk [facility] POCT TEST 2021-11-23 20:46:00 Nichelle Virk [facility] URINALYSIS 2021-11-23 20:43:00 Nichelle Virk [facility] LIPASE 2021-11-23 20:27:00 Nichelle Virk [facility] TROPONIN I 2021-11-23 20:27:00 Nichelle Virk [facility] COMP. METABOLIC PANEL ([id number]) 2021-11-23 20:27:00 Nichelle Virk [facility] CBC WITH DIFF 2021-11-23 20:27:00 Nichelle Virk [facility] POCT GLUCOSE (AUTOMATED) 2021-11-23 20:15:00 Doctor Unassigned, Omar [facility] SARS-COV-2 COVID-19 VACCINE,0.3ML,IM (PFIZER) 2021-05-24 14:23:12 Doctor Unassigned, Omar [facility] SARS-COV-2 COVID-19 VACCINE,0.3ML,IM (PFIZER) 2021-05-03 14:59:29 Doctor Unassigned, Omar [facility] EMERGENCY SERVICES AGREEMENT S AND AUTHORIZATIONS 2021-04-16 05:01:00 Doctor Unassigned, Omar [facility] URINALYSIS 2021-03-17 03:09:00 Fabrice Chakraborty [facility] XR CHEST 1 VW 2021-03-17 01:45:07 Fabrice Chakraborty [facility] TROPONIN I 2021-03-17 01:35:00 Fabrice Chakraborty [facility] COMP. METABOLIC PANEL ([id number]) 2021-03-17 01:35:00 Palmer [facility] CBC WITH DIFF 2021-03-17 01:35:00 Palmer [facility] N-TERMINAL PRO-BNP 2021-03-17 01:35:00 Palmer [facility] COVID-19 (ID NOW RAPID TESTING) 2021-03-17 00:58:00 Brian Bryan [facility] CONSENT/REFUSAL FOR DIAGNOSI S AND TREATMENT 2021-03-17 00:32:59 Doctor Unassigned, Omar [facility] COVID-19 (ID NOW RAPID TESTING) 2021-02-19 17:04:00 Anali Monroy [facility] CT ABDOMEN PELVIS W CONTRAST 2021-02-19 16:41:18 Anali Monroy [facility] LIPASE 2021-02-19 15:58:00 Anali Monroy [facility] COMP. METABOLIC PANEL ([id number]) 2021-02-19 15:58:00 Anali Monroy [facility] CBC WITH DIFF 2021-02-19 15:58:00 Anali Monroy [facility] URINALYSIS 2021-02-19 15:58:00 Anali Monroy [facility] NOTICE OF PRIVACY PRACTICES 2021-02-19 15:30:46 Doctor Unassigned, Omar [facility] CONSENT/REFUSAL FOR DIAGNOSI S AND TREATMENT 2021-02-19 15:30:30 Doctor Unassigned, Omar [facility] Plan of Care Planned Activity Planned Date Details Comments Source Future Scheduled Test 2025-08-02 00:00:00 Lipid panel (procedure) [code = 50362127] [facility] Future Scheduled Test 2025-08-02 00:00:00 Lipid panel (procedure) [code = 70463944] [facility] Future Scheduled Test 2025-08-02 00:00:00 Lipid panel (procedure) [code = 91434752] [facility] Future Scheduled Test 2025-08-02 00:00:00 Lipid panel (procedure) [code = 65185723] [facility] Future Scheduled Test 2025-08-02 00:00:00 Lipid panel (procedure) [code = 06387798] [facility] Future Scheduled Test 2025-08-02 00:00:00 Lipid panel (procedure) [code = 02444037] [facility] Future Scheduled Test 2025-08-02 00:00:00 Lipid panel (procedure) [code = 08941972] [facility] Future Scheduled Test 2025-08-02 00:00:00 Lipid panel (procedure) [code = 62745467] [facility] Future Scheduled Test 2025-08-02 00:00:00 Lipid panel (procedure) [code = 91358584] [facility] Future Scheduled Test 2025-08-02 00:00:00 Lipid panel (procedure) [code = 72819932] [facility] Future Scheduled Test 2025-08-02 00:00:00 Lipid panel (procedure) [code = 27368858] [facility] Future Scheduled Test 2025-08-02 00:00:00 Lipid panel (procedure) [code = 90272188] [facility] Future Scheduled Test 2025-08-02 00:00:00 Lipid panel (procedure) [code = 32898361] [facility] Future Scheduled Test 2025-08-02 00:00:00 Lipid panel (procedure) [code = 70269069] [facility] Future Scheduled Test 2025-08-02 00:00:00 Lipid panel (procedure) [code = 54424386] [facility] Future Scheduled Test 2025-08-02 00:00:00 Lipid panel (procedure) [code = 71869606] [facility] Future Scheduled Test 2025-08-02 00:00:00 Lipid panel (procedure) [code = 01453487] [facility] Future Scheduled Test 2025-08-02 00:00:00 Lipid panel (procedure) [code = 28489041] [facility] Future Scheduled Test 2025-08-02 00:00:00 Lipid panel (procedure) [code = 05518796] [facility] Future Scheduled Test 2025-08-02 00:00:00 Lipid panel (procedure) [code = 65351908] [facility] Future Scheduled Test 2025-08-02 00:00:00 Lipid panel (procedure) [code = 10323198] [facility] Future Scheduled Test 2025-08-02 00:00:00 Lipid panel (procedure) [code = 82760010] [facility] Future Scheduled Test 2025-08-02 00:00:00 Lipid panel (procedure) [code = 11632631] [facility] Future Scheduled Test 2025-08-02 00:00:00 Lipid panel (procedure) [code = 97240491] [facility] Future Scheduled Test 2025-08-02 00:00:00 Lipid panel (procedure) [code = 24909793] [facility] Future Scheduled Test 2025-08-02 00:00:00 Lipid panel (procedure) [code = 43457722] [facility] Future Scheduled Test 2025-08-02 00:00:00 Lipid panel (procedure) [code = 00834771] [facility] Future Scheduled Test 2025-08-02 00:00:00 Lipid panel (procedure) [code = 07199556] [facility] Future Scheduled Test 2025-08-02 00:00:00 Lipid panel (procedure) [code = 73440606] [facility] Future Scheduled Test 2025-08-02 00:00:00 Lipid panel (procedure) [code = 49861339] [facility] Future Scheduled Test 2025-08-02 00:00:00 Lipid panel (procedure) [code = 50759059] [facility] Future Scheduled Test 2025-08-02 00:00:00 Lipid panel (procedure) [code = 83422432] [facility] Future Scheduled Test 2025-08-02 00:00:00 Lipid panel (procedure) [code = 03981682] [facility] Future Scheduled Test 2025-08-02 00:00:00 Lipid panel (procedure) [code = 47448170] [facility] Future Scheduled Test 2025-08-02 00:00:00 Lipid panel (procedure) [code = 55762915] [facility] Future Scheduled Test 2025-08-02 00:00:00 Lipid panel (procedure) [code = 58192359] [facility] Future Scheduled Test 2025-08-02 00:00:00 Lipid panel (procedure) [code = 17001995] [facility] Future Scheduled Test 2025-08-02 00:00:00 Lipid panel (procedure) [code = 80927652] [facility] Future Scheduled Test 2025-08-02 00:00:00 Lipid panel (procedure) [code = 38991158] [facility] Future Scheduled Test 2025-08-02 00:00:00 Lipid panel (procedure) [code = 59944319] [facility] Future Scheduled Test 2025-08-02 00:00:00 Lipid panel (procedure) [code = 09679704] [facility] Future Scheduled Test 2025-08-02 00:00:00 Lipid panel (procedure) [code = 26779343] [facility] Future Scheduled Test 2025-08-02 00:00:00 Lipid panel (procedure) [code = 02385713] [facility] Future Scheduled Test 2025-08-02 00:00:00 Lipid panel (procedure) [code = 96505057] [facility] Future Scheduled Test 2025-08-02 00:00:00 Lipid panel (procedure) [code = 25444304] [facility] Future Scheduled Test 2025-08-02 00:00:00 Lipid panel (procedure) [code = 49558702] [facility] Future Scheduled Test 2025-08-02 00:00:00 Lipid panel (procedure) [code = 67642624] [facility] Future Scheduled Test 2025-08-02 00:00:00 Lipid panel (procedure) [code = 85121408] [facility] Future Scheduled Test 2025-08-02 00:00:00 Lipid panel (procedure) [code = 57085377] [facility] Future Scheduled Test 2025-08-02 00:00:00 Lipid panel (procedure) [code = 71569216] [facility] Future Scheduled Test 2025-08-02 00:00:00 Lipid panel (procedure) [code = 51860473] [facility] Future Scheduled Test 2025-08-02 00:00:00 Lipid panel (procedure) [code = 11586497] [facility] Future Scheduled Test 2025-08-02 00:00:00 Lipid panel (procedure) [code = 83391408] [facility] Future Scheduled Test 2025-08-02 00:00:00 Lipid panel (procedure) [code = 29665599] [facility] Future Scheduled Test 2025-08-02 00:00:00 Lipid panel (procedure) [code = 52987064] [facility] Future Scheduled Test 2025-08-02 00:00:00 Lipid panel (procedure) [code = 12374026] [facility] Future Scheduled Test 2025-08-02 00:00:00 Lipid panel (procedure) [code = 95189386] [facility] Future Scheduled Test 2025-08-02 00:00:00 Lipid panel (procedure) [code = 72109122] [facility] Future Scheduled Test 2025-08-02 00:00:00 Lipid panel (procedure) [code = 66724377] [facility] Future Scheduled Test 2025-08-02 00:00:00 Lipid panel (procedure) [code = 95264750] [facility] Future Scheduled Test 2025-08-02 00:00:00 Lipid panel (procedure) [code = 53101966] [facility] Future Scheduled Test 2025-08-02 00:00:00 Lipid panel (procedure) [code = 67260446] [facility] Future Scheduled Test 2025-08-02 00:00:00 Lipid panel (procedure) [code = 28487443] [facility] Future Scheduled Test 2025-08-02 00:00:00 Lipid panel (procedure) [code = 80552902] [facility] Future Scheduled Test 2025-08-02 00:00:00 Lipid panel (procedure) [code = 25755563] [facility] Future Scheduled Test 2025-08-02 00:00:00 Lipid panel (procedure) [code = 12699898] [facility] Future Scheduled Test 2025-08-02 00:00:00 Lipid panel (procedure) [code = 17663442] [facility] Future Scheduled Test 2025-08-02 00:00:00 Lipid panel (procedure) [code = 70344888] [facility] Future Scheduled Test 2025-08-02 00:00:00 Lipid panel (procedure) [code = 96415555] [facility] Future Scheduled Test 2025-08-02 00:00:00 Lipid panel (procedure) [code = 03629287] [facility] Scheduled Test 2024-05-28 00:00:00 Tobacco Cessation Counseling and Screening (12+) [code = Tobacco Cessation Counseling and Screening (12+)] [facility] Scheduled Test 2024-05-28 00:00:00 Tobacco Cessation Counseling and Screening (12+) [code = Tobacco Cessation Counseling and Screening (12+)] [facility] Scheduled Test 2024-05-28 00:00:00 Tobacco Cessation Counseling and Screening (12+) [code = Tobacco Cessation Counseling and Screening (12+)] [facility] Future Scheduled Test 2024-05-28 00:00:00 Tobacco Cessation Counseling and Screening (12+) [code = Tobacco Cessation Counseling and Screening (12+)] [facility] Future Scheduled Test 2024-05-28 00:00:00 Tobacco Cessation Counseling and Screening (12+) [code = Tobacco Cessation Counseling and Screening (12+)] [facility] Future Scheduled Test 2024-05-28 00:00:00 Tobacco Cessation Counseling and Screening (12+) [code = Tobacco Cessation Counseling and Screening (12+)] [facility] Future Scheduled Test 2024-05-28 00:00:00 Tobacco Cessation Counseling and Screening (12+) [code = Tobacco Cessation Counseling and Screening (12+)] [facility] Future Scheduled Test 2024-05-28 00:00:00 Tobacco Cessation Counseling and Screening (12+) [code = Tobacco Cessation Counseling and Screening (12+)] [facility] Scheduled Test 2024-05-28 00:00:00 Tobacco Cessation Counseling and Screening (12+) [code = Tobacco Cessation Counseling and Screening (12+)] [facility] Scheduled Test 2024-05-28 00:00:00 Tobacco Cessation Counseling and Screening (12+) [code = Tobacco Cessation Counseling and Screening (12+)] [facility] Scheduled Test 2024-05-28 00:00:00 Tobacco Cessation Counseling and Screening (12+) [code = Tobacco Cessation Counseling and Screening (12+)] [facility] Scheduled Test 2024-05-28 00:00:00 Tobacco Cessation Counseling and Screening (12+) [code = Tobacco Cessation Counseling and Screening (12+)] [facility] Scheduled Test 2024-05-28 00:00:00 Tobacco Cessation Counseling and Screening (12+) [code = Tobacco Cessation Counseling and Screening (12+)] [facility] Scheduled Test 2024-05-28 00:00:00 Tobacco Cessation Counseling and Screening (12+) [code = Tobacco Cessation Counseling and Screening (12+)] [facility] Scheduled Test 2024-05-28 00:00:00 Tobacco Cessation Counseling and Screening (12+) [code = Tobacco Cessation Counseling and Screening (12+)] [facility] Scheduled Test 2024-05-28 00:00:00 Tobacco Cessation Counseling and Screening (12+) [code = Tobacco Cessation Counseling and Screening (12+)] [facility] Scheduled Test 2024-05-28 00:00:00 Tobacco Cessation Counseling and Screening (12+) [code = Tobacco Cessation Counseling and Screening (12+)] [facility] Scheduled Test 2024-05-28 00:00:00 Tobacco Cessation Counseling and Screening (12+) [code = Tobacco Cessation Counseling and Screening (12+)] [facility] Scheduled Test 2024-05-28 00:00:00 Tobacco Cessation Counseling and Screening (12+) [code = Tobacco Cessation Counseling and Screening (12+)] [facility] Scheduled Test 2024-05-28 00:00:00 Tobacco Cessation Counseling and Screening (12+) [code = Tobacco Cessation Counseling and Screening (12+)] [facility] Scheduled Test 2024-05-28 00:00:00 Tobacco Cessation Counseling and Screening (12+) [code = Tobacco Cessation Counseling and Screening (12+)] [facility] Scheduled Test 2024-05-28 00:00:00 Tobacco Cessation Counseling and Screening (12+) [code = Tobacco Cessation Counseling and Screening (12+)] [facility] Scheduled Test 2024-05-28 00:00:00 Tobacco Cessation Counseling and Screening (12+) [code = Tobacco Cessation Counseling and Screening (12+)] [facility] Scheduled Test 2024-05-28 00:00:00 Tobacco Cessation Counseling and Screening (12+) [code = Tobacco Cessation Counseling and Screening (12+)] [facility] Scheduled Test 2024-05-28 00:00:00 Tobacco Cessation Counseling and Screening (12+) [code = Tobacco Cessation Counseling and Screening (12+)] [facility] Scheduled Test 2024-05-28 00:00:00 Tobacco Cessation Counseling and Screening (12+) [code = Tobacco Cessation Counseling and Screening (12+)] [facility] Scheduled Test 2024-05-28 00:00:00 Tobacco Cessation Counseling and Screening (12+) [code = Tobacco Cessation Counseling and Screening (12+)] [facility] Future Scheduled Test 2024-05-28 00:00:00 Tobacco Cessation Counseling and Screening (12+) [code = Tobacco Cessation Counseling and Screening (12+)] [facility] Scheduled Test 2024-05-28 00:00:00 Tobacco Cessation Counseling and Screening (12+) [code = Tobacco Cessation Counseling and Screening (12+)] [facility] Scheduled Test 2024-05-28 00:00:00 Tobacco Cessation Counseling and Screening (12+) [code = Tobacco Cessation Counseling and Screening (12+)] [facility] Scheduled Test 2024-05-28 00:00:00 Tobacco Cessation Counseling and Screening (12+) [code = Tobacco Cessation Counseling and Screening (12+)] [facility] Future Scheduled Test 2024-05-28 00:00:00 Tobacco Cessation Counseling and Screening (12+) [code = Tobacco Cessation Counseling and Screening (12+)] [facility] Scheduled Test 2024-05-28 00:00:00 Tobacco Cessation Counseling and Screening (12+) [code = Tobacco Cessation Counseling and Screening (12+)] [facility] Scheduled Test 2024-05-28 00:00:00 Tobacco Cessation Counseling and Screening (12+) [code = Tobacco Cessation Counseling and Screening (12+)] [facility] Scheduled Test 2024-05-28 00:00:00 Tobacco Cessation Counseling and Screening (12+) [code = Tobacco Cessation Counseling and Screening (12+)] [facility] Scheduled Test 2024-05-28 00:00:00 Tobacco Cessation Counseling and Screening (12+) [code = Tobacco Cessation Counseling and Screening (12+)] [facility] Scheduled Test 2024-05-28 00:00:00 Tobacco Cessation Counseling and Screening (12+) [code = Tobacco Cessation Counseling and Screening (12+)] [facility] Scheduled Test 2024-05-28 00:00:00 Tobacco Cessation Counseling and Screening (12+) [code = Tobacco Cessation Counseling and Screening (12+)] [facility] Scheduled Test 2024-05-28 00:00:00 Tobacco Cessation Counseling and Screening (12+) [code = Tobacco Cessation Counseling and Screening (12+)] [facility] Future Scheduled Test 2024-05-28 00:00:00 Tobacco Cessation Counseling and Screening (12+) [code = Tobacco Cessation Counseling and Screening (12+)] [facility] Scheduled Test 2024-05-28 00:00:00 Tobacco Cessation Counseling and Screening (12+) [code = Tobacco Cessation Counseling and Screening (12+)] [facility] Scheduled Test 2024-05-28 00:00:00 Tobacco Cessation Counseling and Screening (12+) [code = Tobacco Cessation Counseling and Screening (12+)] [facility] Scheduled Test 2024-05-28 00:00:00 Tobacco Cessation Counseling and Screening (12+) [code = Tobacco Cessation Counseling and Screening (12+)] [facility] Scheduled Test 2024-05-28 00:00:00 Tobacco Cessation Counseling and Screening (12+) [code = Tobacco Cessation Counseling and Screening (12+)] [facility] Future Scheduled Test 2024-05-28 00:00:00 Tobacco Cessation Counseling and Screening (12+) [code = Tobacco Cessation Counseling and Screening (12+)] [facility] Future Scheduled Test 2024-05-26 00:00:00 Tobacco Cessation Counseling and Screening (12+) [code = Tobacco Cessation Counseling and Screening (12+)] [facility] Future Scheduled Test 2024-05-26 00:00:00 Tobacco Cessation Counseling and Screening (12+) [code = Tobacco Cessation Counseling and Screening (12+)] [facility] Scheduled Test 2024-03-20 00:00:00 Influenza Vaccine (Season Ended) [code = Influenza Vaccine (Season Ended)] [facility] Scheduled Test 2024-03-20 00:00:00 Influenza Vaccine (Season Ended) [code = Influenza Vaccine (Season Ended)] [facility] Future Scheduled Test 2024-03-20 00:00:00 Influenza Vaccine (Season Ended) [code = Influenza Vaccine (Season Ended)] [facility] Future Scheduled Test 2024-03-20 00:00:00 Influenza Vaccine (Season Ended) [code = Influenza Vaccine (Season Ended)] [facility] Future Scheduled Test 2024-03-20 00:00:00 Influenza Vaccine (Season Ended) [code = Influenza Vaccine (Season Ended)] [facility] Future Scheduled Test 2024-03-20 00:00:00 Influenza Vaccine (Season Ended) [code = Influenza Vaccine (Season Ended)] [facility] Scheduled Test 2024-03-20 00:00:00 Influenza Vaccine (Season Ended) [code = Influenza Vaccine (Season Ended)] [facility] Scheduled Test 2024-03-20 00:00:00 Influenza Vaccine (Season Ended) [code = Influenza Vaccine (Season Ended)] [facility] Scheduled Test 2024-03-20 00:00:00 Influenza Vaccine (Season Ended) [code = Influenza Vaccine (Season Ended)] [facility] Scheduled Test 2024-03-20 00:00:00 Influenza Vaccine (Season Ended) [code = Influenza Vaccine (Season Ended)] [facility] Future Scheduled Test 2023-07-20 00:00:00 DEPRESSION SCREENING (12+) [code = DEPRESSION SCREENING (12+)] [facility] Future Scheduled Test 2023-07-20 00:00:00 DEPRESSION SCREENING (12+) [code = DEPRESSION SCREENING (12+)] [facility] Future Scheduled Test 2023-07-20 00:00:00 DEPRESSION SCREENING (12+) [code = DEPRESSION SCREENING (12+)] [facility] Future Scheduled Test 2023-07-20 00:00:00 DEPRESSION SCREENING (12+) [code = DEPRESSION SCREENING (12+)] [facility] Future Scheduled Test 2023-07-20 00:00:00 DEPRESSION SCREENING (12+) [code = DEPRESSION SCREENING (12+)] [facility] Future Scheduled Test 2023-07-20 00:00:00 DEPRESSION SCREENING (12+) [code = DEPRESSION SCREENING (12+)] [facility] Scheduled Test 2023-07-20 00:00:00 DEPRESSION SCREENING (12+) [code = DEPRESSION SCREENING (12+)] [facility] Scheduled Test 2023-07-20 00:00:00 DEPRESSION SCREENING (12+) [code = DEPRESSION SCREENING (12+)] [facility] Scheduled Test 2023-07-20 00:00:00 DEPRESSION SCREENING (12+) [code = DEPRESSION SCREENING (12+)] [facility] Scheduled Test 2023-07-20 00:00:00 DEPRESSION SCREENING (12+) [code = DEPRESSION SCREENING (12+)] [facility] Future Scheduled Test 2023-07-20 00:00:00 DEPRESSION SCREENING (12+) [code = DEPRESSION SCREENING (12+)] [facility] Scheduled Test 2023-07-20 00:00:00 DEPRESSION SCREENING (12+) [code = DEPRESSION SCREENING (12+)] [facility] Scheduled Test 2023-07-20 00:00:00 DEPRESSION SCREENING (12+) [code = DEPRESSION SCREENING (12+)] [facility] Scheduled Test 2023-07-20 00:00:00 DEPRESSION SCREENING (12+) [code = DEPRESSION SCREENING (12+)] [facility] Future Scheduled Test 2023-07-20 00:00:00 DEPRESSION SCREENING (12+) [code = DEPRESSION SCREENING (12+)] [facility] Future Scheduled Test 2023-07-20 00:00:00 DEPRESSION SCREENING (12+) [code = DEPRESSION SCREENING (12+)] [facility] Future Scheduled Test 2023-07-20 00:00:00 DEPRESSION SCREENING (12+) [code = DEPRESSION SCREENING (12+)] [facility] Future Scheduled Test 2023-07-20 00:00:00 DEPRESSION SCREENING (12+) [code = DEPRESSION SCREENING (12+)] [facility] Future Scheduled Test 2023-07-20 00:00:00 DEPRESSION SCREENING (12+) [code = DEPRESSION SCREENING (12+)] [facility] Scheduled Test 2023-07-20 00:00:00 DEPRESSION SCREENING (12+) [code = DEPRESSION SCREENING (12+)] [facility] Scheduled Test 2023-07-20 00:00:00 DEPRESSION SCREENING (12+) [code = DEPRESSION SCREENING (12+)] [facility] Scheduled Test 2023-07-20 00:00:00 DEPRESSION SCREENING (12+) [code = DEPRESSION SCREENING (12+)] [facility] Scheduled Test 2023-07-20 00:00:00 DEPRESSION SCREENING (12+) [code = DEPRESSION SCREENING (12+)] [facility] Scheduled Test 2023-07-20 00:00:00 DEPRESSION SCREENING (12+) [code = DEPRESSION SCREENING (12+)] [facility] Scheduled Test 2023-07-20 00:00:00 DEPRESSION SCREENING (12+) [code = DEPRESSION SCREENING (12+)] [facility] Scheduled Test 2023-07-20 00:00:00 DEPRESSION SCREENING (12+) [code = DEPRESSION SCREENING (12+)] [facility] Scheduled Test 2023-07-20 00:00:00 DEPRESSION SCREENING (12+) [code = DEPRESSION SCREENING (12+)] [facility] Scheduled Test 2023-07-20 00:00:00 DEPRESSION SCREENING (12+) [code = DEPRESSION SCREENING (12+)] [facility] Scheduled Test 2023-07-20 00:00:00 DEPRESSION SCREENING (12+) [code = DEPRESSION SCREENING (12+)] [facility] Scheduled Test 2023-07-20 00:00:00 DEPRESSION SCREENING (12+) [code = DEPRESSION SCREENING (12+)] [facility] Scheduled Test 2023-07-20 00:00:00 DEPRESSION SCREENING (12+) [code = DEPRESSION SCREENING (12+)] [facility] Scheduled Test 2023-07-20 00:00:00 DEPRESSION SCREENING (12+) [code = DEPRESSION SCREENING (12+)] [facility] Scheduled Test 2023-07-20 00:00:00 DEPRESSION SCREENING (12+) [code = DEPRESSION SCREENING (12+)] [facility] Sched[facility] Test 2023-07-20 00:00:00 DEPRESSION SCREENING (12+) [code = DEPRESSION SCREENING (12+)] [facility] Sched[facility] Test 2023-07-20 00:00:00 DEPRESSION SCREENING (12+) [code = DEPRESSION SCREENING (12+)] [facility] Sched[facility] Test 2023-07-20 00:00:00 DEPRESSION SCREENING (12+) [code = DEPRESSION SCREENING (12+)] [facility] Scheduled Test 2023-07-20 00:00:00 DEPRESSION SCREENING (12+) [code = DEPRESSION SCREENING (12+)] [facility] Scheduled Test 2023-03-20 00:00:00 INFLUENZA VACCINE (Season Ended) [code = INFLUENZA VACCINE (Season Ended)] [facility] Scheduled Test 2023-03-20 00:00:00 INFLUENZA VACCINE (Season Ended) [code = INFLUENZA VACCINE (Season Ended)] [facility] Scheduled Test 2023-03-20 00:00:00 INFLUENZA VACCINE (Season Ended) [code = INFLUENZA VACCINE (Season Ended)] [facility] Scheduled Test 2023-03-20 00:00:00 INFLUENZA VACCINE (Season Ended) [code = INFLUENZA VACCINE (Season Ended)] [facility] Scheduled Test 2023-03-20 00:00:00 INFLUENZA VACCINE (Season Ended) [code = INFLUENZA VACCINE (Season Ended)] [facility] Scheduled Test 2023-03-20 00:00:00 INFLUENZA VACCINE (Season Ended) [code = INFLUENZA VACCINE (Season Ended)] [facility] Scheduled Test 2023-03-20 00:00:00 Influenza Vaccine (Season Ended) [code = Influenza Vaccine (Season Ended)] [facility] Sched[facility] Test 2023-03-20 00:00:00 Influenza Vaccine (Season Ended) [code = Influenza Vaccine (Season Ended)] [facility] Sched[facility] Test 2023-03-20 00:00:00 Influenza Vaccine (#1) [code = Influenza Vaccine (#1)] [facility] Sched[facility] Test 2023-03-20 00:00:00 Influenza Vaccine (#1) [code = Influenza Vaccine (#1)] [facility] Sched[facility] Test 2023-03-20 00:00:00 Influenza Vaccine (#1) [code = Influenza Vaccine (#1)] [facility] Scheduled Test 2023-03-20 00:00:00 Influenza Vaccine (#1) [code = Influenza Vaccine (#1)] [facility] Scheduled Test 2023-03-20 00:00:00 COVID-19 VACCINE ( season) [code = COVID-19 VACCINE ( season)] [facility] Sched[facility] Test 2023-03-20 00:00:00 Influenza Vaccine (#1) [code = Influenza Vaccine (#1)] [facility] Sched[facility] Test 2023-03-20 00:00:00 COVID-19 VACCINE ( season) [code = COVID-19 VACCINE ( season)] [facility] Sched[facility] Test 2023-03-20 00:00:00 Influenza Vaccine (#1) [code = Influenza Vaccine (#1)] [facility] Sched[facility] Test 2023-03-20 00:00:00 COVID-19 VACCINE ( season) [code = COVID-19 VACCINE ()] [facility] Scheduled Test 2023-03-20 00:00:00 Influenza Vaccine (#1) [code = Influenza Vaccine (#1)] [facility] Sched[facility] Test 2023-03-20 00:00:00 COVID-19 VACCINE ( season) [code = COVID-19 VACCINE ()] [facility] Sched[facility] Test 2023-03-20 00:00:00 Influenza Vaccine (#1) [code = Influenza Vaccine (#1)] [facility] Sched[facility] Test 2023-03-20 00:00:00 Influenza Vaccine (#1) [code = Influenza Vaccine (#1)] [facility] Sched[facility] Test 2023-03-20 00:00:00 COVID-19 VACCINE ( season) [code = COVID-19 VACCINE ()] [facility] Sched[facility] Test 2023-03-20 00:00:00 Influenza Vaccine (#1) [code = Influenza Vaccine (#1)] [facility] Sched[facility] Test 2023-03-20 00:00:00 COVID-19 VACCINE ( season) [code = COVID-19 VACCINE ()] [facility] Sched[facility] Test 2023-03-20 00:00:00 Influenza Vaccine (#1) [code = Influenza Vaccine (#1)] [facility] Sched[facility] Test 2023-03-20 00:00:00 COVID-19 VACCINE ( season) [code = COVID-19 VACCINE ( season)] [facility] Sched[facility] Test 2023-03-20 00:00:00 Influenza Vaccine (#1) [code = Influenza Vaccine (#1)] [facility] Sched[facility] Test 2023-03-20 00:00:00 COVID-19 VACCINE ( season) [code = COVID-19 VACCINE ( season)] [facility] Sched[facility] Test 2023-03-20 00:00:00 Influenza Vaccine (#1) [code = Influenza Vaccine (#1)] [facility] Sched[facility] Test 2023-03-20 00:00:00 COVID-19 VACCINE ( season) [code = COVID-19 VACCINE ( season)] [facility] Sched[facility] Test 2023-03-20 00:00:00 Influenza Vaccine (#1) [code = Influenza Vaccine (#1)] [facility] Sched[facility] Test 2023-03-20 00:00:00 COVID-19 VACCINE ( season) [code = COVID-19 VACCINE ()] [facility] Sched[facility] Test 2023-03-20 00:00:00 Influenza Vaccine (#1) [code = Influenza Vaccine (#1)] [facility] Sched[facility] Test 2023-03-20 00:00:00 COVID-19 VACCINE ( season) [code = COVID-19 VACCINE ()] [facility] Sched[facility] Test 2023-03-20 00:00:00 Influenza Vaccine (#1) [code = Influenza Vaccine (#1)] [facility] Sched[facility] Test 2023-03-20 00:00:00 Influenza Vaccine (#1) [code = Influenza Vaccine (#1)] [facility] Sched[facility] Test 2023-03-20 00:00:00 COVID-19 VACCINE ( season) [code = COVID-19 VACCINE ( season)] [facility] Sched[facility] Test 2023-03-20 00:00:00 Influenza Vaccine (#1) [code = Influenza Vaccine (#1)] [facility] Scheduled Test 2023-03-20 00:00:00 COVID-19 VACCINE ( season) [code = COVID-19 VACCINE ()] [facility] Sched[facility] Test 2023-03-20 00:00:00 Influenza Vaccine (#1) [code = Influenza Vaccine (#1)] [facility] Sched[facility] Test 2023-03-20 00:00:00 COVID-19 VACCINE ( season) [code = COVID-19 VACCINE ( season)] [facility] Sched[facility] Test 2023-03-20 00:00:00 Influenza Vaccine (#1) [code = Influenza Vaccine (#1)] [facility] Scheduled Test 2023-03-20 00:00:00 COVID-19 VACCINE ( season) [code = COVID-19 VACCINE ()] [facility] Sched[facility] Test 2023-03-20 00:00:00 Influenza Vaccine (#1) [code = Influenza Vaccine (#1)] [facility] Sched[facility] Test 2023-03-20 00:00:00 COVID-19 VACCINE ( season) [code = COVID-19 VACCINE ()] [facility] Sched[facility] Test 2023-03-20 00:00:00 Influenza Vaccine (#1) [code = Influenza Vaccine (#1)] [facility] Sched[facility] Test 2023-03-20 00:00:00 COVID-19 VACCINE ( season) [code = COVID-19 VACCINE ()] [facility] Scheduled Test 2023-03-20 00:00:00 Influenza Vaccine (#1) [code = Influenza Vaccine (#1)] [facility] Sched[facility] Test 2023-03-20 00:00:00 Influenza Vaccine (#1) [code = Influenza Vaccine (#1)] [facility] Sched[facility] Test 2023-03-20 00:00:00 COVID-19 VACCINE ( season) [code = COVID-19 VACCINE ( season)] [facility] Sched[facility] Test 2023-03-20 00:00:00 Influenza Vaccine (#1) [code = Influenza Vaccine (#1)] [facility] Scheduled Test 2023-03-20 00:00:00 COVID-19 VACCINE ( season) [code = COVID-19 VACCINE ( season)] [facility] Sched[facility] Test 2023-03-20 00:00:00 Influenza Vaccine (#1) [code = Influenza Vaccine (#1)] [facility] Sched[facility] Test 2023-03-20 00:00:00 COVID-19 VACCINE ( season) [code = COVID-19 VACCINE ()] [facility] Sched[facility] Test 2023-03-20 00:00:00 Influenza Vaccine (#1) [code = Influenza Vaccine (#1)] [facility] Sched[facility] Test 2023-03-20 00:00:00 COVID-19 VACCINE () [code = COVID-19 VACCINE ()] [facility] Sched[facility] Test 2023-03-20 00:00:00 Influenza Vaccine (#1) [code = Influenza Vaccine (#1)] [facility] Sched[facility] Test 2023-03-20 00:00:00 Influenza Vaccine (#1) [code = Influenza Vaccine (#1)] [facility] Sched[facility] Test 2023-03-20 00:00:00 COVID-19 VACCINE ( season) [code = COVID-19 VACCINE ()] [facility] Sched[facility] Test 2023-03-20 00:00:00 Influenza Vaccine (#1) [code = Influenza Vaccine (#1)] [facility] Sched[facility] Test 2023-03-20 00:00:00 COVID-19 VACCINE ( season) [code = COVID-19 VACCINE ( season)] [facility] Sched[facility] Test 2023-03-20 00:00:00 Influenza Vaccine (#1) [code = Influenza Vaccine (#1)] [facility] Sched[facility] Test 2023-03-20 00:00:00 COVID-19 VACCINE ( season) [code = COVID-19 VACCINE ( season)] [facility] Sched[facility] Test 2023-03-20 00:00:00 Influenza Vaccine (#1) [code = Influenza Vaccine (#1)] [facility] Sched[facility] Test 2023-03-20 00:00:00 COVID-19 VACCINE ( season) [code = COVID-19 VACCINE ( season)] [facility] Sched[facility] Test 2023-03-20 00:00:00 Influenza Vaccine (#1) [code = Influenza Vaccine (#1)] [facility] Sched[facility] Test 2023-03-20 00:00:00 COVID-19 VACCINE () [code = COVID-19 VACCINE ()] [facility] Sched[facility] Test 2023-03-20 00:00:00 Influenza Vaccine (#1) [code = Influenza Vaccine (#1)] [facility] Sched[facility] Test 2023-03-20 00:00:00 COVID-19 VACCINE () [code = COVID-19 VACCINE ()] [facility] Sched[facility] Test 2023-03-20 00:00:00 Influenza Vaccine (#1) [code = Influenza Vaccine (#1)] [facility] Sched[facility] Test 2023-03-20 00:00:00 Influenza Vaccine (#1) [code = Influenza Vaccine (#1)] [facility] Sched[facility] Test 2023-03-20 00:00:00 COVID-19 VACCINE ( season) [code = COVID-19 VACCINE ()] [facility] Sched[facility] Test 2023-03-20 00:00:00 Influenza Vaccine (#1) [code = Influenza Vaccine (#1)] [facility] Sched[facility] Test 2023-03-20 00:00:00 COVID-19 VACCINE () [code = COVID-19 VACCINE ( season)] [facility] Sched[facility] Test 2023-03-20 00:00:00 Influenza Vaccine (#1) [code = Influenza Vaccine (#1)] [facility] Sched[facility] Test 2023-03-20 00:00:00 COVID-19 VACCINE ( season) [code = COVID-19 VACCINE ()] [facility] Sched[facility] Test 2023-03-20 00:00:00 COVID-19 VACCINE () [code = COVID-19 VACCINE ()] [facility] Sched[facility] Test 2023-03-20 00:00:00 COVID-19 VACCINE () [code = COVID-19 VACCINE ()] [facility] Test 2023-03-20 00:00:00 COVID-19 VACCINE () [code = COVID-19 VACCINE ()] [facility] Sched[facility] Test 2023-03-20 00:00:00 COVID-19 VACCINE () [code = COVID-19 VACCINE ()] [facility] Test 2023-03-20 00:00:00 COVID-19 VACCINE () [code = COVID-19 VACCINE ()] [facility] Test 2023-03-20 00:00:00 Influenza Vaccine (#1) [code = Influenza Vaccine (#1)] [facility] Sched[facility] Test 2023-03-20 00:00:00 COVID-19 VACCINE ( season) [code = COVID-19 VACCINE ()] [facility] Test 2023-03-20 00:00:00 COVID-19 VACCINE () [code = COVID-19 VACCINE ()] [facility] Sched[facility] Test 2023-03-20 00:00:00 COVID-19 VACCINE ( season) [code = COVID-19 VACCINE ( season)] [facility] Test 2023-03-20 00:00:00 COVID-19 VACCINE ( season) [code = COVID-19 VACCINE ()] [facility] Sched[facility] Test 2023-03-20 00:00:00 Influenza Vaccine (#1) [code = Influenza Vaccine (#1)] [facility] Test 2023-03-20 00:00:00 Influenza Vaccine (#1) [code = Influenza Vaccine (#1)] [facility] Sched[facility] Test 2023-03-20 00:00:00 Influenza Vaccine (#1) [code = Influenza Vaccine (#1)] [facility] Sched[facility] Test 2023-03-20 00:00:00 Influenza Vaccine (#1) [code = Influenza Vaccine (#1)] [facility] Test 2023-03-20 00:00:00 Influenza Vaccine (#1) [code = Influenza Vaccine (#1)] [facility] Test 2023-03-20 00:00:00 Influenza Vaccine (#1) [code = Influenza Vaccine (#1)] [facility] Test 2023-03-20 00:00:00 Influenza Vaccine (#1) [code = Influenza Vaccine (#1)] [facility] Test 2023-03-20 00:00:00 Influenza Vaccine (#1) [code = Influenza Vaccine (#1)] [facility] Test 2023-03-20 00:00:00 Influenza Vaccine (#1) [code = Influenza Vaccine (#1)] [facility] Test 2023-03-20 00:00:00 COVID-19 VACCINE ( season) [code = COVID-19 VACCINE ()] [facility] Sched[facility] Test 2022-07-20 00:00:00 DEPRESSION SCREENING (12+) [code = DEPRESSION SCREENING (12+)] [facility] Test 2022-07-20 00:00:00 DEPRESSION SCREENING (12+) [code = DEPRESSION SCREENING (12+)] [facility] Test 2022-07-20 00:00:00 DEPRESSION SCREENING (12+) [code = DEPRESSION SCREENING (12+)] [facility] Test 2022-07-20 00:00:00 DEPRESSION SCREENING (12+) [code = DEPRESSION SCREENING (12+)] [facility] Test 2022-07-20 00:00:00 DEPRESSION SCREENING (12+) [code = DEPRESSION SCREENING (12+)] [facility] Sched[facility] Test 2022-07-20 00:00:00 DEPRESSION SCREENING (12+) [code = DEPRESSION SCREENING (12+)] [facility] Test 2022-07-20 00:00:00 DEPRESSION SCREENING (12+) [code = DEPRESSION SCREENING (12+)] [facility] Test 2022-07-20 00:00:00 DEPRESSION SCREENING (12+) [code = DEPRESSION SCREENING (12+)] [facility] Test 2022-07-20 00:00:00 DEPRESSION SCREENING (12+) [code = DEPRESSION SCREENING (12+)] [facility] Test 2022-07-20 00:00:00 DEPRESSION SCREENING (12+) [code = DEPRESSION SCREENING (12+)] [facility] Test 2022-07-20 00:00:00 DEPRESSION SCREENING (12+) [code = DEPRESSION SCREENING (12+)] [facility] Test 2022-07-20 00:00:00 DEPRESSION SCREENING (12+) [code = DEPRESSION SCREENING (12+)] [facility] Test 2022-07-20 00:00:00 DEPRESSION SCREENING (12+) [code = DEPRESSION SCREENING (12+)] [facility] Test 2022-07-20 00:00:00 DEPRESSION SCREENING (12+) [code = DEPRESSION SCREENING (12+)] [facility] Test 2022-07-20 00:00:00 DEPRESSION SCREENING (12+) [code = DEPRESSION SCREENING (12+)] [facility] Test 2022-07-20 00:00:00 DEPRESSION SCREENING (12+) [code = DEPRESSION SCREENING (12+)] [facility] Test 2022-07-20 00:00:00 DEPRESSION SCREENING (12+) [code = DEPRESSION SCREENING (12+)] [facility] Test 2022-07-20 00:00:00 DEPRESSION SCREENING (12+) [code = DEPRESSION SCREENING (12+)] [facility] Test 2022-07-20 00:00:00 DEPRESSION SCREENING (12+) [code = DEPRESSION SCREENING (12+)] [facility] Test 2022-07-20 00:00:00 DEPRESSION SCREENING (12+) [code = DEPRESSION SCREENING (12+)] [facility] Test 2022-07-20 00:00:00 DEPRESSION SCREENING (12+) [code = DEPRESSION SCREENING (12+)] [facility] Test 2022-07-20 00:00:00 DEPRESSION SCREENING (12+) [code = DEPRESSION SCREENING (12+)] [facility] Test 2022-07-20 00:00:00 DEPRESSION SCREENING (12+) [code = DEPRESSION SCREENING (12+)] [facility] Test 2022-07-20 00:00:00 DEPRESSION SCREENING (12+) [code = DEPRESSION SCREENING (12+)] [facility] Test 2022-07-20 00:00:00 DEPRESSION SCREENING (12+) [code = DEPRESSION SCREENING (12+)] [facility] Test 2022-07-20 00:00:00 DEPRESSION SCREENING (12+) [code = DEPRESSION SCREENING (12+)] [facility] Test 2022-07-20 00:00:00 DEPRESSION SCREENING (12+) [code = DEPRESSION SCREENING (12+)] [facility] Test 2022-07-20 00:00:00 DEPRESSION SCREENING (12+) [code = DEPRESSION SCREENING (12+)] [facility] Test 2022-07-20 00:00:00 DEPRESSION SCREENING (12+) [code = DEPRESSION SCREENING (12+)] [facility] Test 2022-07-20 00:00:00 DEPRESSION SCREENING (12+) [code = DEPRESSION SCREENING (12+)] [facility] Test 2022-07-20 00:00:00 DEPRESSION SCREENING (12+) [code = DEPRESSION SCREENING (12+)] [facility] Test 2022-07-20 00:00:00 DEPRESSION SCREENING (12+) [code = DEPRESSION SCREENING (12+)] [facility] Test 2022-07-20 00:00:00 DEPRESSION SCREENING (12+) [code = DEPRESSION SCREENING (12+)] [facility] Test 2022-06-21 00:00:00 COVID-19 VACCINE (4 - Booster for Pfizer series) [code = COVID-19 VACCINE (4 - Booster for Pfizer series)] [facility] Test 2022-06-21 00:00:00 COVID-19 VACCINE (4 - Booster for Pfizer series) [code = COVID-19 VACCINE (4 - Booster for Pfizer series)] [facility] Test 2022-06-21 00:00:00 COVID-19 VACCINE (4 - Booster for Pfizer series) [code = COVID-19 VACCINE (4 - Booster for Pfizer series)] [facility] Test 2022-06-21 00:00:00 COVID-19 VACCINE (4 - Booster for Pfizer series) [code = COVID-19 VACCINE (4 - Booster for Pfizer series)] [facility] Test 2022-04-16 00:00:00 COVID-19 VACCINE (4 - Booster for Pfizer series) [code = COVID-19 VACCINE (4 - Booster for Pfizer series)] [facility] Test 2022-04-16 00:00:00 COVID-19 VACCINE (4 - Booster for Pfizer series) [code = COVID-19 VACCINE (4 - Booster for Pfizer series)] [facility] Test 2022-04-16 00:00:00 COVID-19 VACCINE (4 - Booster for Pfizer series) [code = COVID-19 VACCINE (4 - Booster for Pfizer series)] [facility] Sched[facility] Test 2022-04-16 00:00:00 COVID-19 VACCINE (4 - Booster for Pfizer series) [code = COVID-19 VACCINE (4 - Booster for Pfizer series)] [facility] Test 2022-04-16 00:00:00 COVID-19 VACCINE (4 - Booster for Pfizer series) [code = COVID-19 VACCINE (4 - Booster for Pfizer series)] [facility] Test 2022-04-16 00:00:00 COVID-19 VACCINE (4 - Booster for Pfizer series) [code = COVID-19 VACCINE (4 - Booster for Pfizer series)] [facility] Test 2022-04-16 00:00:00 COVID-19 VACCINE (4 - Booster for Pfizer series) [code = COVID-19 VACCINE (4 - Booster for Pfizer series)] [facility] Test 2022-04-16 00:00:00 COVID-19 VACCINE (4 - Booster for Pfizer series) [code = COVID-19 VACCINE (4 - Booster for Pfizer series)] [facility] Test 2022-04-16 00:00:00 COVID-19 VACCINE (4 - Booster for Pfizer series) [code = COVID-19 VACCINE (4 - Booster for Pfizer series)] [facility] Test 2022-04-16 00:00:00 COVID-19 VACCINE (4 - Booster for Pfizer series) [code = COVID-19 VACCINE (4 - Booster for Pfizer series)] [facility] Test 2022-04-16 00:00:00 COVID-19 VACCINE (4 - Booster for Pfizer series) [code = COVID-19 VACCINE (4 - Booster for Pfizer series)] [facility] Sched[facility] Test 2022-04-16 00:00:00 COVID-19 VACCINE (4 - Booster for Pfizer series) [code = COVID-19 VACCINE (4 - Booster for Pfizer series)] [facility] Scheduled Test 2022-04-16 00:00:00 COVID-19 VACCINE (4 - Booster for Pfizer series) [code = COVID-19 VACCINE (4 - Booster for Pfizer series)] [facility] Sched[facility] Test 2022-04-16 00:00:00 COVID-19 VACCINE (4 - Booster for Pfizer series) [code = COVID-19 VACCINE (4 - Booster for Pfizer series)] [facility] Scheduled Test 2022-04-16 00:00:00 COVID-19 VACCINE (4 - Booster for Pfizer series) [code = COVID-19 VACCINE (4 - Booster for Pfizer series)] [facility] Sched[facility] Test 2022-04-16 00:00:00 COVID-19 VACCINE (4 - Booster for Pfizer series) [code = COVID-19 VACCINE (4 - Booster for Pfizer series)] [facility] Scheduled Test 2022-04-16 00:00:00 COVID-19 VACCINE (4 - Booster for Pfizer series) [code = COVID-19 VACCINE (4 - Booster for Pfizer series)] [facility] Scheduled Test 2022-04-16 00:00:00 COVID-19 VACCINE (4 - Booster for Pfizer series) [code = COVID-19 VACCINE (4 - Booster for Pfizer series)] [facility] Scheduled Test 2022-04-16 00:00:00 COVID-19 VACCINE (4 - Booster for Pfizer series) [code = COVID-19 VACCINE (4 - Booster for Pfizer series)] [facility] Sched[facility] Test 2022-04-16 00:00:00 COVID-19 VACCINE (4 - Booster for Pfizer series) [code = COVID-19 VACCINE (4 - Booster for Pfizer series)] [facility] Sched[facility] Test 2022-04-16 00:00:00 COVID-19 VACCINE (4 - Pfizer series) [code = COVID-19 VACCINE (4 - Pfizer series)] [facility] Test 2022-04-16 00:00:00 COVID-19 VACCINE (4 - Pfizer series) [code = COVID-19 VACCINE (4 - Pfizer series)] [facility] Test 2022-04-16 00:00:00 COVID-19 VACCINE (4 - Pfizer series) [code = COVID-19 VACCINE (4 - Pfizer series)] [facility] Test 2022-04-16 00:00:00 COVID-19 VACCINE (4 - Pfizer series) [code = COVID-19 VACCINE (4 - Pfizer series)] [facility] Test 2022-04-16 00:00:00 COVID-19 VACCINE (4 - Booster for Pfizer series) [code = COVID-19 VACCINE (4 - Booster for Pfizer series)] [facility] Sched[facility] Test 2022-04-16 00:00:00 COVID-19 VACCINE (4 - Pfizer series) [code = COVID-19 VACCINE (4 - Pfizer series)] [facility] Scheduled Test 2022-03-20 00:00:00 INFLUENZA VACCINE (#1) [code = INFLUENZA VACCINE (#1)] [facility] Test 2022-03-20 00:00:00 INFLUENZA VACCINE (#1) [code = INFLUENZA VACCINE (#1)] [facility] Test 2022-03-20 00:00:00 INFLUENZA VACCINE (#1) [code = INFLUENZA VACCINE (#1)] [facility] Test 2022-03-20 00:00:00 INFLUENZA VACCINE (#1) [code = INFLUENZA VACCINE (#1)] [facility] Sched[facility] Test 2022-01-14 00:00:00 SHINGLES VACCINES (1 of 2) [code = SHINGLES VACCINES (1 of 2)] [facility] Test 2022-01-14 00:00:00 SHINGLES VACCINES (1 of 2) [code = SHINGLES VACCINES (1 of 2)] [facility] Test 2022-01-14 00:00:00 SHINGLES VACCINES (1 of 2) [code = SHINGLES VACCINES (1 of 2)] [facility] Sched[facility] Test 2022-01-14 00:00:00 SHINGLES VACCINES (1 of 2) [code = SHINGLES VACCINES (1 of 2)] [facility] Scheduled Test 2022-01-14 00:00:00 SHINGLES VACCINES (1 of 2) [code = SHINGLES VACCINES (1 of 2)] [facility] Future Scheduled Test 2022-01-14 00:00:00 SHINGLES VACCINES (1 of 2) [code = SHINGLES VACCINES (1 of 2)] [facility] Scheduled Test 2022-01-14 00:00:00 SHINGLES VACCINES (1 of 2) [code = SHINGLES VACCINES (1 of 2)] [facility] Scheduled Test 2022-01-14 00:00:00 SHINGLES VACCINES (1 of 2) [code = SHINGLES VACCINES (1 of 2)] [facility] Scheduled Test 2022-01-14 00:00:00 SHINGLES VACCINES (1 of 2) [code = SHINGLES VACCINES (1 of 2)] [facility] Scheduled Test 2022-01-14 00:00:00 SHINGLES VACCINES (1 of 2) [code = SHINGLES VACCINES (1 of 2)] [facility] Scheduled Test 2022-01-14 00:00:00 SHINGLES VACCINES (1 of 2) [code = SHINGLES VACCINES (1 of 2)] [facility] Scheduled Test 2022-01-14 00:00:00 SHINGLES VACCINES (1 of 2) [code = SHINGLES VACCINES (1 of 2)] [facility] Scheduled Test 2022-01-14 00:00:00 SHINGLES VACCINES (1 of 2) [code = SHINGLES VACCINES (1 of 2)] [facility] Scheduled Test 2022-01-14 00:00:00 SHINGLES VACCINES (1 of 2) [code = SHINGLES VACCINES (1 of 2)] [facility] Scheduled Test 2022-01-14 00:00:00 SHINGLES VACCINES (1 of 2) [code = SHINGLES VACCINES (1 of 2)] [facility] Scheduled Test 2022-01-14 00:00:00 Screening for malignant neoplasm of lung (procedure) [code = [id number]] [facility] Scheduled Test 2022-01-14 00:00:00 SHINGLES VACCINES (1 of 2) [code = SHINGLES VACCINES (1 of 2)] [facility] Scheduled Test 2022-01-14 00:00:00 Screening for malignant neoplasm of lung (procedure) [code = [id number]] [facility] Scheduled Test 2022-01-14 00:00:00 SHINGLES VACCINES (1 of 2) [code = SHINGLES VACCINES (1 of 2)] [facility] Scheduled Test 2022-01-14 00:00:00 Screening for malignant neoplasm of lung (procedure) [code = [id number]] [facility] Scheduled Test 2022-01-14 00:00:00 SHINGLES VACCINES (1 of 2) [code = SHINGLES VACCINES (1 of 2)] [facility] Scheduled Test 2022-01-14 00:00:00 Screening for malignant neoplasm of lung (procedure) [code = [id number]] [facility] Scheduled Test 2022-01-14 00:00:00 SHINGLES VACCINES (1 of 2) [code = SHINGLES VACCINES (1 of 2)] [facility] Scheduled Test 2022-01-14 00:00:00 Screening for malignant neoplasm of lung (procedure) [code = [id number]] [facility] Scheduled Test 2022-01-14 00:00:00 SHINGLES VACCINES (1 of 2) [code = SHINGLES VACCINES (1 of 2)] [facility] Scheduled Test 2022-01-14 00:00:00 Screening for malignant neoplasm of lung (procedure) [code = 535174615] [facility] Scheduled Test 2022-01-14 00:00:00 SHINGLES VACCINES (1 of 2) [code = SHINGLES VACCINES (1 of 2)] [facility] Scheduled Test 2022-01-14 00:00:00 Screening for malignant neoplasm of lung (procedure) [code = [id number]] [facility] Scheduled Test 2022-01-14 00:00:00 SHINGLES VACCINES (1 of 2) [code = SHINGLES VACCINES (1 of 2)] [facility] Scheduled Test 2022-01-14 00:00:00 Screening for malignant neoplasm of lung (procedure) [code = 893191294] [facility] Scheduled Test 2022-01-14 00:00:00 SHINGLES VACCINES (1 of 2) [code = SHINGLES VACCINES (1 of 2)] [facility] Scheduled Test 2022-01-14 00:00:00 Screening for malignant neoplasm of lung (procedure) [code = 823736304] [facility] Scheduled Test 2022-01-14 00:00:00 SHINGLES VACCINES (1 of 2) [code = SHINGLES VACCINES (1 of 2)] [facility] Scheduled Test 2022-01-14 00:00:00 Screening for malignant neoplasm of lung (procedure) [code = 281703517] [facility] Scheduled Test 2022-01-14 00:00:00 SHINGLES VACCINES (1 of 2) [code = SHINGLES VACCINES (1 of 2)] [facility] Scheduled Test 2022-01-14 00:00:00 Screening for malignant neoplasm of lung (procedure) [code = [id number]] [facility] Scheduled Test 2022-01-14 00:00:00 SHINGLES VACCINES (1 of 2) [code = SHINGLES VACCINES (1 of 2)] [facility] Scheduled Test 2022-01-14 00:00:00 Screening for malignant neoplasm of lung (procedure) [code = 021772403] [facility] Scheduled Test 2022-01-14 00:00:00 SHINGLES VACCINES (1 of 2) [code = SHINGLES VACCINES (1 of 2)] [facility] Scheduled Test 2022-01-14 00:00:00 Screening for malignant neoplasm of lung (procedure) [code = 828987122] [facility] Scheduled Test 2022-01-14 00:00:00 SHINGLES VACCINES (1 of 2) [code = SHINGLES VACCINES (1 of 2)] [facility] Scheduled Test 2022-01-14 00:00:00 Screening for malignant neoplasm of lung (procedure) [code = 861647787] [facility] Scheduled Test 2022-01-14 00:00:00 SHINGLES VACCINES (1 of 2) [code = SHINGLES VACCINES (1 of 2)] [facility] Scheduled Test 2022-01-14 00:00:00 Screening for malignant neoplasm of lung (procedure) [code = 478553785] [facility] Scheduled Test 2022-01-14 00:00:00 SHINGLES VACCINES (1 of 2) [code = SHINGLES VACCINES (1 of 2)] [facility] Scheduled Test 2022-01-14 00:00:00 Screening for malignant neoplasm of lung (procedure) [code = 529114398] [facility] Scheduled Test 2022-01-14 00:00:00 SHINGLES VACCINES (1 of 2) [code = SHINGLES VACCINES (1 of 2)] [facility] Scheduled Test 2022-01-14 00:00:00 Screening for malignant neoplasm of lung (procedure) [code = 349227264] [facility] Scheduled Test 2022-01-14 00:00:00 SHINGLES VACCINES (1 of 2) [code = SHINGLES VACCINES (1 of 2)] [facility] Scheduled Test 2022-01-14 00:00:00 Screening for malignant neoplasm of lung (procedure) [code = 612862738] [facility] Scheduled Test 2022-01-14 00:00:00 SHINGLES VACCINES (1 of 2) [code = SHINGLES VACCINES (1 of 2)] [facility] Scheduled Test 2022-01-14 00:00:00 Screening for malignant neoplasm of lung (procedure) [code = 026110850] [facility] Scheduled Test 2022-01-14 00:00:00 Screening for malignant neoplasm of lung (procedure) [code = 552355361] [facility] Scheduled Test 2022-01-14 00:00:00 SHINGLES VACCINES (1 of 2) [code = SHINGLES VACCINES (1 of 2)] [facility] Scheduled Test 2022-01-14 00:00:00 SHINGLES VACCINES (1 of 2) [code = SHINGLES VACCINES (1 of 2)] [facility] Scheduled Test 2022-01-14 00:00:00 Screening for malignant neoplasm of lung (procedure) [code = 359050314] [facility] Scheduled Test 2022-01-14 00:00:00 SHINGLES VACCINES (1 of 2) [code = SHINGLES VACCINES (1 of 2)] [facility] Scheduled Test 2022-01-14 00:00:00 Screening for malignant neoplasm of lung (procedure) [code = 633779548] [facility] Scheduled Test 2022-01-14 00:00:00 SHINGLES VACCINES (1 of 2) [code = SHINGLES VACCINES (1 of 2)] [facility] Scheduled Test 2022-01-14 00:00:00 Screening for malignant neoplasm of lung (procedure) [code = 506798211] [facility] Scheduled Test 2022-01-14 00:00:00 SHINGLES VACCINES (1 of 2) [code = SHINGLES VACCINES (1 of 2)] [facility] Scheduled Test 2022-01-14 00:00:00 Screening for malignant neoplasm of lung (procedure) [code = 156442239] [facility] Scheduled Test 2022-01-14 00:00:00 Screening for malignant neoplasm of lung (procedure) [code = 164119303] [facility] Scheduled Test 2022-01-14 00:00:00 SHINGLES VACCINES (1 of 2) [code = SHINGLES VACCINES (1 of 2)] [facility] Scheduled Test 2022-01-14 00:00:00 SHINGLES VACCINES (1 of 2) [code = SHINGLES VACCINES (1 of 2)] [facility] Scheduled Test 2022-01-14 00:00:00 Screening for malignant neoplasm of lung (procedure) [code = 048340024] [facility] Scheduled Test 2022-01-14 00:00:00 SHINGLES VACCINES (1 of 2) [code = SHINGLES VACCINES (1 of 2)] [facility] Scheduled Test 2022-01-14 00:00:00 Screening for malignant neoplasm of lung (procedure) [code = 986364703] [facility] Scheduled Test 2022-01-14 00:00:00 SHINGLES VACCINES (1 of 2) [code = SHINGLES VACCINES (1 of 2)] [facility] Scheduled Test 2022-01-14 00:00:00 Screening for malignant neoplasm of lung (procedure) [code = 819007581] [facility] Scheduled Test 2022-01-14 00:00:00 SHINGLES VACCINES (1 of 2) [code = SHINGLES VACCINES (1 of 2)] [facility] Scheduled Test 2022-01-14 00:00:00 Screening for malignant neoplasm of lung (procedure) [code = 362681765] [facility] Scheduled Test 2022-01-14 00:00:00 SHINGLES VACCINES (1 of 2) [code = SHINGLES VACCINES (1 of 2)] [facility] Scheduled Test 2022-01-14 00:00:00 Screening for malignant neoplasm of lung (procedure) [code = 938802940] [facility] Scheduled Test 2022-01-14 00:00:00 SHINGLES VACCINES (1 of 2) [code = SHINGLES VACCINES (1 of 2)] [facility] Scheduled Test 2022-01-14 00:00:00 Screening for malignant neoplasm of lung (procedure) [code = 165903219] [facility] Scheduled Test 2022-01-14 00:00:00 Screening for malignant neoplasm of lung (procedure) [code = 392285904] [facility] Scheduled Test 2022-01-14 00:00:00 SHINGLES VACCINES (1 of 2) [code = SHINGLES VACCINES (1 of 2)] [facility] Scheduled Test 2022-01-14 00:00:00 SHINGLES VACCINES (1 of 2) [code = SHINGLES VACCINES (1 of 2)] [facility] Scheduled Test 2022-01-14 00:00:00 Screening for malignant neoplasm of lung (procedure) [code = 647050505] [facility] Scheduled Test 2022-01-14 00:00:00 SHINGLES VACCINES (1 of 2) [code = SHINGLES VACCINES (1 of 2)] [facility] Scheduled Test 2022-01-14 00:00:00 Screening for malignant neoplasm of lung (procedure) [code = 214788719] [facility] Scheduled Test 2022-01-14 00:00:00 SHINGLES VACCINES (1 of 2) [code = SHINGLES VACCINES (1 of 2)] [facility] Scheduled Test 2022-01-14 00:00:00 Screening for malignant neoplasm of lung (procedure) [code = 247439975] [facility] Scheduled Test 2022-01-14 00:00:00 SHINGLES VACCINES (1 of 2) [code = SHINGLES VACCINES (1 of 2)] [facility] Scheduled Test 2022-01-14 00:00:00 Screening for malignant neoplasm of lung (procedure) [code = 048694986] [facility] Scheduled Test 2022-01-14 00:00:00 SHINGLES VACCINES (1 of 2) [code = SHINGLES VACCINES (1 of 2)] [facility] Scheduled Test 2022-01-14 00:00:00 Screening for malignant neoplasm of lung (procedure) [code = 176064605] [facility] Scheduled Test 2022-01-14 00:00:00 SHINGLES VACCINES (1 of 2) [code = SHINGLES VACCINES (1 of 2)] [facility] Scheduled Test 2022-01-14 00:00:00 Screening for malignant neoplasm of lung (procedure) [code = 906761095] [facility] Scheduled Test 2022-01-14 00:00:00 SHINGLES VACCINES (1 of 2) [code = SHINGLES VACCINES (1 of 2)] [facility] Scheduled Test 2022-01-14 00:00:00 Screening for malignant neoplasm of lung (procedure) [code = 569093666] [facility] Scheduled Test 2022-01-14 00:00:00 SHINGLES VACCINES (1 of 2) [code = SHINGLES VACCINES (1 of 2)] [facility] Scheduled Test 2022-01-14 00:00:00 Screening for malignant neoplasm of lung (procedure) [code = 656162184] [facility] Scheduled Test 2022-01-14 00:00:00 SHINGLES VACCINES (1 of 2) [code = SHINGLES VACCINES (1 of 2)] [facility] Scheduled Test 2022-01-14 00:00:00 Screening for malignant neoplasm of lung (procedure) [code = 249673374] [facility] Scheduled Test 2022-01-14 00:00:00 SHINGLES VACCINES (1 of 2) [code = SHINGLES VACCINES (1 of 2)] [facility] Scheduled Test 2022-01-14 00:00:00 Screening for malignant neoplasm of lung (procedure) [code = 788261399] [facility] Scheduled Test 2022-01-14 00:00:00 SHINGLES VACCINES (1 of 2) [code = SHINGLES VACCINES (1 of 2)] [facility] Scheduled Test 2022-01-14 00:00:00 Screening for malignant neoplasm of lung (procedure) [code = 978047021] [facility] Scheduled Test 2022-01-14 00:00:00 SHINGLES VACCINES (1 of 2) [code = SHINGLES VACCINES (1 of 2)] [facility] Scheduled Test 2022-01-14 00:00:00 Screening for malignant neoplasm of lung (procedure) [code = 108126759] [facility] Scheduled Test 2022-01-14 00:00:00 SHINGLES VACCINES (1 of 2) [code = SHINGLES VACCINES (1 of 2)] [facility] Scheduled Test 2022-01-14 00:00:00 Screening for malignant neoplasm of lung (procedure) [code = 876596345] [facility] Scheduled Test 2022-01-14 00:00:00 SHINGLES VACCINES (1 of 2) [code = SHINGLES VACCINES (1 of 2)] [facility] Scheduled Test 2022-01-14 00:00:00 Screening for malignant neoplasm of lung (procedure) [code = 546467506] [facility] Scheduled Test 2022-01-14 00:00:00 SHINGLES VACCINES (1 of 2) [code = SHINGLES VACCINES (1 of 2)] [facility] Scheduled Test 2022-01-14 00:00:00 SHINGLES VACCINES (1 of 2) [code = SHINGLES VACCINES (1 of 2)] [facility] Scheduled Test 2022-01-14 00:00:00 SHINGLES VACCINES (1 of 2) [code = SHINGLES VACCINES (1 of 2)] [facility] Scheduled Test 2022-01-14 00:00:00 Screening for malignant neoplasm of lung (procedure) [code = 718798455] [facility] Scheduled Test 2022-01-14 00:00:00 SHINGLES VACCINES (1 of 2) [code = SHINGLES VACCINES (1 of 2)] [facility] Scheduled Test 2022-01-14 00:00:00 Screening for malignant neoplasm of lung (procedure) [code = 705098037] [facility] Scheduled Test 2022-01-14 00:00:00 SHINGLES VACCINES (1 of 2) [code = SHINGLES VACCINES (1 of 2)] [facility] Scheduled Test 2022-01-14 00:00:00 Screening for malignant neoplasm of lung (procedure) [code = 293047761] [facility] Scheduled Test 2022-01-14 00:00:00 SHINGLES VACCINES (1 of 2) [code = SHINGLES VACCINES (1 of 2)] [facility] Scheduled Test 2022-01-14 00:00:00 Screening for malignant neoplasm of lung (procedure) [code = 046625864] [facility] Scheduled Test 2022-01-14 00:00:00 SHINGLES VACCINES (1 of 2) [code = SHINGLES VACCINES (1 of 2)] [facility] Scheduled Test 2022-01-14 00:00:00 Screening for malignant neoplasm of lung (procedure) [code = 064681770] [facility] Scheduled Test 2022-01-14 00:00:00 SHINGLES VACCINES (1 of 2) [code = SHINGLES VACCINES (1 of 2)] [facility] Scheduled Test 2022-01-14 00:00:00 Screening for malignant neoplasm of lung (procedure) [code = 823572464] [facility] Scheduled Test 2022-01-14 00:00:00 SHINGLES VACCINES (1 of 2) [code = SHINGLES VACCINES (1 of 2)] [facility] Scheduled Test 2022-01-14 00:00:00 Screening for malignant neoplasm of lung (procedure) [code = 356975465] [facility] Scheduled Test 2022-01-14 00:00:00 SHINGLES VACCINES (1 of 2) [code = SHINGLES VACCINES (1 of 2)] [facility] Scheduled Test 2013-12-15 00:00:00 PNEUMOCOCCAL VACCINE 0-64 YRS (2 - PCV) [code = PNEUMOCOCCAL VACCINE 0-64 YRS (2 - PCV)] [facility] Scheduled Test 2013-12-15 00:00:00 PNEUMOCOCCAL VACCINE 0-64 YRS (2 - PCV) [code = PNEUMOCOCCAL VACCINE 0-64 YRS (2 - PCV)] [facility] Scheduled Test 2013-12-15 00:00:00 PNEUMOCOCCAL VACCINE 0-64 YRS (2 - PCV) [code = PNEUMOCOCCAL VACCINE 0-64 YRS (2 - PCV)] [facility] Scheduled Test 2013-12-15 00:00:00 PNEUMOCOCCAL VACCINE 0-64 YRS (2 - PCV) [code = PNEUMOCOCCAL VACCINE 0-64 YRS (2 - PCV)] [facility] Scheduled Test 2013-12-15 00:00:00 Pneumococcal Vaccine: 0-64 Years (2 - PCV) [code = Pneumococcal Vaccine: 0-64 Years (2 - PCV)] [facility] Scheduled Test 2013-12-15 00:00:00 Pneumococcal Vaccine: 0-64 Years (2 - PCV) [code = Pneumococcal Vaccine: 0-64 Years (2 - PCV)] [facility] Scheduled Test 2013-12-15 00:00:00 Pneumococcal Vaccine: 0-64 Years (2 - PCV) [code = Pneumococcal Vaccine: 0-64 Years (2 - PCV)] [facility] Scheduled Test 2013-12-15 00:00:00 Pneumococcal Vaccine: 0-64 Years (2 - PCV) [code = Pneumococcal Vaccine: 0-64 Years (2 - PCV)] [facility] Scheduled Test 2013-12-15 00:00:00 Pneumococcal Vaccine: 0-64 Years (2 - PCV) [code = Pneumococcal Vaccine: 0-64 Years (2 - PCV)] [facility] Scheduled Test 2013-12-15 00:00:00 Pneumococcal Vaccine: 0-64 Years (2 - PCV) [code = Pneumococcal Vaccine: 0-64 Years (2 - PCV)] [facility] Scheduled Test 2013-12-15 00:00:00 Pneumococcal Vaccine: 0-64 Years (2 - PCV) [code = Pneumococcal Vaccine: 0-64 Years (2 - PCV)] [facility] Scheduled Test 2013-12-15 00:00:00 Pneumococcal Vaccine: 0-64 Years (2 - PCV) [code = Pneumococcal Vaccine: 0-64 Years (2 - PCV)] [facility] Scheduled Test 2013-12-15 00:00:00 Pneumococcal Vaccine: 0-64 Years (2 - PCV) [code = Pneumococcal Vaccine: 0-64 Years (2 - PCV)] [facility] Scheduled Test 2013-12-15 00:00:00 Pneumococcal Vaccine: 0-64 Years (2 - PCV) [code = Pneumococcal Vaccine: 0-64 Years (2 - PCV)] [facility] Scheduled Test 2013-12-15 00:00:00 Pneumococcal Vaccine: 0-64 Years (2 - PCV) [code = Pneumococcal Vaccine: 0-64 Years (2 - PCV)] [facility] Scheduled Test 2013-12-15 00:00:00 Pneumococcal Vaccine: 0-64 Years (2 - PCV) [code = Pneumococcal Vaccine: 0-64 Years (2 - PCV)] [facility] Scheduled Test 2013-12-15 00:00:00 Pneumococcal Vaccine: 0-64 Years (2 - PCV) [code = Pneumococcal Vaccine: 0-64 Years (2 - PCV)] [facility] Scheduled Test 2013-12-15 00:00:00 Pneumococcal Vaccine: 0-64 Years (2 - PCV) [code = Pneumococcal Vaccine: 0-64 Years (2 - PCV)] [facility] Scheduled Test 2013-12-15 00:00:00 Pneumococcal Vaccine: 0-64 Years (2 - PCV) [code = Pneumococcal Vaccine: 0-64 Years (2 - PCV)] [facility] Scheduled Test 2013-12-15 00:00:00 Pneumococcal Vaccine: 0-64 Years (2 - PCV) [code = Pneumococcal Vaccine: 0-64 Years (2 - PCV)] [facility] Scheduled Test 2013-12-15 00:00:00 Pneumococcal Vaccine: 0-64 Years (2 - PCV) [code = Pneumococcal Vaccine: 0-64 Years (2 - PCV)] [facility] Scheduled Test 2013-12-15 00:00:00 Pneumococcal Vaccine: 0-64 Years (2 - PCV) [code = Pneumococcal Vaccine: 0-64 Years (2 - PCV)] [facility] Scheduled Test 2013-12-15 00:00:00 Pneumococcal Vaccine: 0-64 Years (2 - PCV) [code = Pneumococcal Vaccine: 0-64 Years (2 - PCV)] [facility] Scheduled Test 2013-12-15 00:00:00 Pneumococcal Vaccine: 0-64 Years (2 - PCV) [code = Pneumococcal Vaccine: 0-64 Years (2 - PCV)] [facility] Scheduled Test 2013-12-15 00:00:00 Pneumococcal Vaccine: 0-64 Years (2 of 2 - PCV) [code = Pneumococcal Vaccine: 0-64 Years (2 of 2 - PCV)] [facility] Scheduled Test 2013-12-15 00:00:00 Pneumococcal Vaccine: 0-64 Years (2 of 2 - PCV) [code = Pneumococcal Vaccine: 0-64 Years (2 of 2 - PCV)] [facility] Scheduled Test 2013-12-15 00:00:00 Pneumococcal Vaccine: 0-64 Years (2 of 2 - PCV) [code = Pneumococcal Vaccine: 0-64 Years (2 of 2 - PCV)] [facility] Scheduled Test 2013-12-15 00:00:00 Pneumococcal Vaccine: 0-64 Years (2 of 2 - PCV) [code = Pneumococcal Vaccine: 0-64 Years (2 of 2 - PCV)] [facility] Scheduled Test 2013-12-15 00:00:00 Pneumococcal Vaccine: 0-64 Years (2 of 2 - PCV) [code = Pneumococcal Vaccine: 0-64 Years (2 of 2 - PCV)] [facility] Scheduled Test 2013-12-15 00:00:00 Pneumococcal Vaccine: 0-64 Years (2 of 2 - PCV) [code = Pneumococcal Vaccine: 0-64 Years (2 of 2 - PCV)] [facility] Scheduled Test 2013-12-15 00:00:00 Pneumococcal Vaccine: 0-64 Years (2 of 2 - PCV) [code = Pneumococcal Vaccine: 0-64 Years (2 of 2 - PCV)] [facility] Scheduled Test 2013-12-15 00:00:00 Pneumococcal Vaccine: 0-64 Years (2 of 2 - PCV) [code = Pneumococcal Vaccine: 0-64 Years (2 of 2 - PCV)] [facility] Scheduled Test 2013-12-15 00:00:00 Pneumococcal Vaccine: 0-64 Years (2 of 2 - PCV) [code = Pneumococcal Vaccine: 0-64 Years (2 of 2 - PCV)] [facility] Scheduled Test 2013-12-15 00:00:00 Pneumococcal Vaccine: 0-64 Years (2 of 2 - PCV) [code = Pneumococcal Vaccine: 0-64 Years (2 of 2 - PCV)] [facility] Scheduled Test 2013-12-15 00:00:00 Pneumococcal Vaccine: 0-64 Years (2 of 2 - PCV) [code = Pneumococcal Vaccine: 0-64 Years (2 of 2 - PCV)] [facility] Scheduled Test 2013-12-15 00:00:00 Pneumococcal Vaccine: 0-64 Years (2 of 2 - PCV) [code = Pneumococcal Vaccine: 0-64 Years (2 of 2 - PCV)] [facility] Scheduled Test 2013-12-15 00:00:00 Pneumococcal Vaccine: 0-64 Years (2 of 2 - PCV) [code = Pneumococcal Vaccine: 0-64 Years (2 of 2 - PCV)] [facility] Scheduled Test 2013-12-15 00:00:00 Pneumococcal Vaccine: 0-64 Years (2 of 2 - PCV) [code = Pneumococcal Vaccine: 0-64 Years (2 of 2 - PCV)] [facility] Scheduled Test 2013-12-15 00:00:00 Pneumococcal Vaccine: 0-64 Years (2 of 2 - PCV) [code = Pneumococcal Vaccine: 0-64 Years (2 of 2 - PCV)] [facility] Scheduled Test 2013-12-15 00:00:00 Pneumococcal Vaccine: 0-64 Years (2 of 2 - PCV) [code = Pneumococcal Vaccine: 0-64 Years (2 of 2 - PCV)] [facility] Scheduled Test 2013-12-15 00:00:00 Pneumococcal Vaccine: 0-64 Years (2 of 2 - PCV) [code = Pneumococcal Vaccine: 0-64 Years (2 of 2 - PCV)] [facility] Scheduled Test 2013-12-15 00:00:00 Pneumococcal Vaccine: 0-64 Years (2 of 2 - PCV) [code = Pneumococcal Vaccine: 0-64 Years (2 of 2 - PCV)] [facility] Scheduled Test 2013-12-15 00:00:00 Pneumococcal Vaccine: 0-64 Years (2 of 2 - PCV) [code = Pneumococcal Vaccine: 0-64 Years (2 of 2 - PCV)] [facility] Scheduled Test 2013-12-15 00:00:00 Pneumococcal Vaccine: 0-64 Years (2 - PCV) [code = Pneumococcal Vaccine: 0-64 Years (2 - PCV)] [facility] Scheduled Test 2013-12-15 00:00:00 Pneumococcal Vaccine: 0-64 Years (2 - PCV) [code = Pneumococcal Vaccine: 0-64 Years (2 - PCV)] [facility] Scheduled Test 2013-12-15 00:00:00 Pneumococcal Vaccine: 0-64 Years (2 - PCV) [code = Pneumococcal Vaccine: 0-64 Years (2 - PCV)] [facility] Scheduled Test 1993-01-14 00:00:00 Screening for malignant neoplasm of cervix (procedure) [code = 332835444] [facility] Scheduled Test 1993-01-14 00:00:00 Screening for malignant neoplasm of cervix (procedure) [code = 732871729] [facility] Scheduled Test 1993-01-14 00:00:00 Screening for malignant neoplasm of cervix (procedure) [code = 775659417] [facility] Scheduled Test 1993-01-14 00:00:00 Screening for malignant neoplasm of cervix (procedure) [code = 337648404] [facility] Scheduled Test 1993-01-14 00:00:00 Screening for malignant neoplasm of cervix (procedure) [code = 600831948] [facility] Scheduled Test 1993-01-14 00:00:00 Screening for malignant neoplasm of cervix (procedure) [code = 017059135] [facility] Scheduled Test 1993-01-14 00:00:00 Screening for malignant neoplasm of cervix (procedure) [code = 552436958] [facility] Scheduled Test 1993-01-14 00:00:00 Screening for malignant neoplasm of cervix (procedure) [code = 911437021] [facility] Future Scheduled Test 1993-01-14 00:00:00 Screening for malignant neoplasm of cervix (procedure) [code = [id number]] [facility] Future Scheduled Test 1993-01-14 00:00:00 Screening for malignant neoplasm of cervix (procedure) [code = [id number]] [facility] Future Scheduled Test 1993-01-14 00:00:00 Screening for malignant neoplasm of cervix (procedure) [code = [id number]] [facility] Future Scheduled Test 1993-01-14 00:00:00 Screening for malignant neoplasm of cervix (procedure) [code = [id number]] [facility] Future Scheduled Test 1993-01-14 00:00:00 Screening for malignant neoplasm of cervix (procedure) [code = [id number]] [facility] [facility]14 00:00:00 Screening for malignant neoplasm of cervix (procedure) [code = [id number]] [facility] Scheduled Test 1993-01-14 00:00:00 Screening for malignant neoplasm of cervix (procedure) [code = 875034937] [facility] Scheduled Test 1993-01-14 00:00:00 Screening for malignant neoplasm of cervix (procedure) [code = 906094982] [facility] Scheduled Test 1993-01-14 00:00:00 Screening for malignant neoplasm of cervix (procedure) [code = 330362326] [facility] Sched[facility] Test 1993-01-14 00:00:00 Screening for malignant neoplasm of cervix (procedure) [code = [id number]] [facility] Scheduled Test 1993-01-14 00:00:00 Screening for malignant neoplasm of cervix (procedure) [code = 546590985] [facility] Scheduled Test 1993-01-14 00:00:00 Screening for malignant neoplasm of cervix (procedure) [code = 813749519] [facility] Scheduled Test 1993-01-14 00:00:00 Screening for malignant neoplasm of cervix (procedure) [code = [id number]] [facility] Scheduled Test 1993-01-14 00:00:00 Screening for malignant neoplasm of cervix (procedure) [code = 974948256] [facility] Scheduled Test 1993-01-14 00:00:00 Screening for malignant neoplasm of cervix (procedure) [code = 246237270] [facility] Scheduled Test 1993-01-14 00:00:00 Screening for malignant neoplasm of cervix (procedure) [code = 736749932] [facility] Scheduled Test 1993-01-14 00:00:00 Screening for malignant neoplasm of cervix (procedure) [code = 128772694] [facility] Scheduled Test 1993-01-14 00:00:00 Screening for malignant neoplasm of cervix (procedure) [code = 239647133] [facility] Scheduled Test 1993-01-14 00:00:00 Screening for malignant neoplasm of cervix (procedure) [code = 910672293] [facility] Scheduled Test 1993-01-14 00:00:00 Screening for malignant neoplasm of cervix (procedure) [code = [id number]] [facility] Scheduled Test 1993-01-14 00:00:00 Screening for malignant neoplasm of cervix (procedure) [code = 303918843] [facility] Scheduled Test 1993-01-14 00:00:00 Screening for malignant neoplasm of cervix (procedure) [code = 761559230] [facility] Scheduled Test 1993-01-14 00:00:00 Screening for malignant neoplasm of cervix (procedure) [code = 899469224] [facility] Scheduled Test 1993-01-14 00:00:00 Screening for malignant neoplasm of cervix (procedure) [code = 251372154] [facility] Scheduled Test 1993-01-14 00:00:00 Screening for malignant neoplasm of cervix (procedure) [code = 091160131] [facility] Scheduled Test 1993-01-14 00:00:00 Screening for malignant neoplasm of cervix (procedure) [code = 112138502] [facility] Scheduled Test 1993-01-14 00:00:00 Screening for malignant neoplasm of cervix (procedure) [code = 120404252] [facility] Scheduled Test 1993-01-14 00:00:00 Screening for malignant neoplasm of cervix (procedure) [code = 136481842] [facility] Scheduled Test 1993-01-14 00:00:00 Screening for malignant neoplasm of cervix (procedure) [code = 183299860] [facility] Scheduled Test 1993-01-14 00:00:00 Screening for malignant neoplasm of cervix (procedure) [code = 728652061] [facility] Scheduled Test 1993-01-14 00:00:00 Screening for malignant neoplasm of cervix (procedure) [code = 979408766] [facility] Scheduled Test 1993-01-14 00:00:00 Screening for malignant neoplasm of cervix (procedure) [code = 782013293] [facility] Scheduled Test 1993-01-14 00:00:00 Screening for malignant neoplasm of cervix (procedure) [code = 631136160] [facility] Scheduled Test 1993-01-14 00:00:00 Screening for malignant neoplasm of cervix (procedure) [code = 949597014] [facility] Scheduled Test 1993-01-14 00:00:00 Screening for malignant neoplasm of cervix (procedure) [code = 555590572] [facility] Scheduled Test 1993-01-14 00:00:00 Screening for malignant neoplasm of cervix (procedure) [code = 214194016] [facility] Scheduled Test 1993-01-14 00:00:00 Screening for malignant neoplasm of cervix (procedure) [code = 617331092] [facility] Scheduled Test 1993-01-14 00:00:00 Screening for malignant neoplasm of cervix (procedure) [code = 452895351] [facility] Scheduled Test 1993-01-14 00:00:00 Screening for malignant neoplasm of cervix (procedure) [code = 596080443] [facility] Scheduled Test 1993-01-14 00:00:00 Screening for malignant neoplasm of cervix (procedure) [code = 491074137] [facility] Scheduled Test 1993-01-14 00:00:00 Screening for malignant neoplasm of cervix (procedure) [code = 630975598] [facility] Scheduled Test 1993-01-14 00:00:00 Screening for malignant neoplasm of cervix (procedure) [code = 531707518] [facility] Scheduled Test 1993-01-14 00:00:00 Screening for malignant neoplasm of cervix (procedure) [code = 374157574] [facility] Scheduled Test 1993-01-14 00:00:00 Screening for malignant neoplasm of cervix (procedure) [code = 623687338] [facility] Scheduled Test 1993-01-14 00:00:00 Screening for malignant neoplasm of cervix (procedure) [code = 846086928] [facility] Scheduled Test 1993-01-14 00:00:00 Screening for malignant neoplasm of cervix (procedure) [code = 105529155] [facility] Scheduled Test 1993-01-14 00:00:00 Screening for malignant neoplasm of cervix (procedure) [code = 109902723] [facility] Test 1993-01-14 00:00:00 Screening for malignant neoplasm of cervix (procedure) [code = 804995254] [facility] Scheduled Test 1993-01-14 00:00:00 Screening for malignant neoplasm of cervix (procedure) [code = 942537197] [facility] Scheduled Test 1993-01-14 00:00:00 Screening for malignant neoplasm of cervix (procedure) [code = 988876672] [facility]uled Test 1993-01-14 00:00:00 Screening for malignant neoplasm of cervix (procedure) [code = 579123691] [facility] Scheduled Test 1993-01-14 00:00:00 Screening for malignant neoplasm of cervix (procedure) [code = 166626748] [facility] Scheduled Test 1993-01-14 00:00:00 Screening for malignant neoplasm of cervix (procedure) [code = 839414875] [facility] Scheduled Test 1993-01-14 00:00:00 Screening for malignant neoplasm of cervix (procedure) [code = 770478084] [facility] Scheduled Test 1993-01-14 00:00:00 Screening for malignant neoplasm of cervix (procedure) [code = [id number]] [facility] Scheduled Test 1993-01-14 00:00:00 Screening for malignant neoplasm of cervix (procedure) [code = 341955059] [facility]uled Test 1993-01-14 00:00:00 Screening for malignant neoplasm of cervix (procedure) [code = 745009500] [facility] Scheduled Test 1993-01-14 00:00:00 Screening for malignant neoplasm of cervix (procedure) [code = 345412846] [facility] Scheduled Test 1993-01-14 00:00:00 Screening for malignant neoplasm of cervix (procedure) [code = 652401804] [facility] Scheduled Test 1993-01-14 00:00:00 Screening for malignant neoplasm of cervix (procedure) [code = 568017369] [facility] Scheduled Test 1993-01-14 00:00:00 Screening for malignant neoplasm of cervix (procedure) [code = 938449004] [facility] Scheduled Test 1993-01-14 00:00:00 Screening for malignant neoplasm of cervix (procedure) [code = 312152427] [facility] Test 1991-01-14 00:00:00 DTAP/TDAP/TD VACCINES (1 - Tdap) [code = DTAP/TDAP/TD VACCINES (1 - Tdap)] [facility] Test 1991-01-14 00:00:00 DTAP/TDAP/TD VACCINES (1 - Tdap) [code = DTAP/TDAP/TD VACCINES (1 - Tdap)] [facility] Test 1991-01-14 00:00:00 DTAP/TDAP/TD VACCINES (1 - Tdap) [code = DTAP/TDAP/TD VACCINES (1 - Tdap)] [facility] Sched[facility] Test 1991-01-14 00:00:00 DTAP/TDAP/TD VACCINES (1 - Tdap) [code = DTAP/TDAP/TD VACCINES (1 - Tdap)] [facility] Scheduled Test 1991-01-14 00:00:00 DTAP/TDAP/TD VACCINES (1 - Tdap) [code = DTAP/TDAP/TD VACCINES (1 - Tdap)] [facility] Scheduled Test 1991-01-14 00:00:00 DTAP/TDAP/TD VACCINES (1 - Tdap) [code = DTAP/TDAP/TD VACCINES (1 - Tdap)] [facility] Scheduled Test 1991-01-14 00:00:00 DTAP/TDAP/TD VACCINES (1 - Tdap) [code = DTAP/TDAP/TD VACCINES (1 - Tdap)] [facility] Scheduled Test 1991-01-14 00:00:00 DTAP/TDAP/TD VACCINES (1 - Tdap) [code = DTAP/TDAP/TD VACCINES (1 - Tdap)] [facility] Scheduled Test 1991-01-14 00:00:00 DTAP/TDAP/TD VACCINES (1 - Tdap) [code = DTAP/TDAP/TD VACCINES (1 - Tdap)] [facility] Scheduled Test 1991-01-14 00:00:00 DTAP/TDAP/TD VACCINES (1 - Tdap) [code = DTAP/TDAP/TD VACCINES (1 - Tdap)] [facility] Scheduled Test 1991-01-14 00:00:00 DTAP/TDAP/TD VACCINES (1 - Tdap) [code = DTAP/TDAP/TD VACCINES (1 - Tdap)] [facility] Scheduled Test 1991-01-14 00:00:00 DTAP/TDAP/TD VACCINES (1 - Tdap) [code = DTAP/TDAP/TD VACCINES (1 - Tdap)] [facility] Scheduled Test 1991-01-14 00:00:00 DTAP/TDAP/TD VACCINES (1 - Tdap) [code = DTAP/TDAP/TD VACCINES (1 - Tdap)] [facility] Scheduled Test 1991-01-14 00:00:00 DTAP/TDAP/TD VACCINES (1 - Tdap) [code = DTAP/TDAP/TD VACCINES (1 - Tdap)] [facility] Scheduled Test 1991-01-14 00:00:00 DTAP/TDAP/TD VACCINES (1 - Tdap) [code = DTAP/TDAP/TD VACCINES (1 - Tdap)] [facility] Scheduled Test 1991-01-14 00:00:00 DTAP/TDAP/TD VACCINES (1 - Tdap) [code = DTAP/TDAP/TD VACCINES (1 - Tdap)] [facility] Scheduled Test 1991-01-14 00:00:00 DTAP/TDAP/TD VACCINES (1 - Tdap) [code = DTAP/TDAP/TD VACCINES (1 - Tdap)] [facility] Scheduled Test 1991-01-14 00:00:00 DTAP/TDAP/TD VACCINES (1 - Tdap) [code = DTAP/TDAP/TD VACCINES (1 - Tdap)] [facility] Scheduled Test 1991-01-14 00:00:00 DTAP/TDAP/TD VACCINES (1 - Tdap) [code = DTAP/TDAP/TD VACCINES (1 - Tdap)] [facility] Scheduled Test 1991-01-14 00:00:00 DTAP/TDAP/TD VACCINES (1 - Tdap) [code = DTAP/TDAP/TD VACCINES (1 - Tdap)] [facility] Scheduled Test 1991-01-14 00:00:00 DTAP/TDAP/TD VACCINES (1 - Tdap) [code = DTAP/TDAP/TD VACCINES (1 - Tdap)] [facility] Scheduled Test 1991-01-14 00:00:00 DTAP/TDAP/TD VACCINES (1 - Tdap) [code = DTAP/TDAP/TD VACCINES (1 - Tdap)] [facility] Scheduled Test 1991-01-14 00:00:00 DTAP/TDAP/TD VACCINES (1 - Tdap) [code = DTAP/TDAP/TD VACCINES (1 - Tdap)] [facility] Scheduled Test 1991-01-14 00:00:00 DTAP/TDAP/TD VACCINES (1 - Tdap) [code = DTAP/TDAP/TD VACCINES (1 - Tdap)] [facility] Scheduled Test 1991-01-14 00:00:00 DTAP/TDAP/TD VACCINES (1 - Tdap) [code = DTAP/TDAP/TD VACCINES (1 - Tdap)] [facility] Scheduled Test 1991-01-14 00:00:00 DTAP/TDAP/TD VACCINES (1 - Tdap) [code = DTAP/TDAP/TD VACCINES (1 - Tdap)] [facility] Scheduled Test 1991-01-14 00:00:00 DTAP/TDAP/TD VACCINES (1 - Tdap) [code = DTAP/TDAP/TD VACCINES (1 - Tdap)] [facility] Scheduled Test 1991-01-14 00:00:00 DTAP/TDAP/TD VACCINES (1 - Tdap) [code = DTAP/TDAP/TD VACCINES (1 - Tdap)] [facility] Scheduled Test 1991-01-14 00:00:00 DTAP/TDAP/TD VACCINES (1 - Tdap) [code = DTAP/TDAP/TD VACCINES (1 - Tdap)] [facility] Scheduled Test 1991-01-14 00:00:00 DTAP/TDAP/TD VACCINES (1 - Tdap) [code = DTAP/TDAP/TD VACCINES (1 - Tdap)] [facility] Scheduled Test 1991-01-14 00:00:00 DTAP/TDAP/TD VACCINES (1 - Tdap) [code = DTAP/TDAP/TD VACCINES (1 - Tdap)] [facility] Scheduled Test 1991-01-14 00:00:00 DTAP/TDAP/TD VACCINES (1 - Tdap) [code = DTAP/TDAP/TD VACCINES (1 - Tdap)] [facility] Scheduled Test 1991-01-14 00:00:00 DTAP/TDAP/TD VACCINES (1 - Tdap) [code = DTAP/TDAP/TD VACCINES (1 - Tdap)] [facility] Scheduled Test 1991-01-14 00:00:00 DTAP/TDAP/TD VACCINES (1 - Tdap) [code = DTAP/TDAP/TD VACCINES (1 - Tdap)] [facility] Scheduled Test 1991-01-14 00:00:00 DTAP/TDAP/TD VACCINES (1 - Tdap) [code = DTAP/TDAP/TD VACCINES (1 - Tdap)] [facility] Scheduled Test 1991-01-14 00:00:00 DTAP/TDAP/TD VACCINES (1 - Tdap) [code = DTAP/TDAP/TD VACCINES (1 - Tdap)] [facility] Scheduled Test 1991-01-14 00:00:00 DTAP/TDAP/TD VACCINES (1 - Tdap) [code = DTAP/TDAP/TD VACCINES (1 - Tdap)] [facility] Scheduled Test 1991-01-14 00:00:00 DTAP/TDAP/TD VACCINES (1 - Tdap) [code = DTAP/TDAP/TD VACCINES (1 - Tdap)] [facility] Scheduled Test 1991-01-14 00:00:00 DTAP/TDAP/TD VACCINES (1 - Tdap) [code = DTAP/TDAP/TD VACCINES (1 - Tdap)] [facility] Scheduled Test 1991-01-14 00:00:00 DTAP/TDAP/TD VACCINES (1 - Tdap) [code = DTAP/TDAP/TD VACCINES (1 - Tdap)] [facility] Scheduled Test 1991-01-14 00:00:00 DTAP/TDAP/TD VACCINES (1 - Tdap) [code = DTAP/TDAP/TD VACCINES (1 - Tdap)] [facility] Scheduled Test 1991-01-14 00:00:00 DTAP/TDAP/TD VACCINES (1 - Tdap) [code = DTAP/TDAP/TD VACCINES (1 - Tdap)] [facility] Scheduled Test 1991-01-14 00:00:00 DTAP/TDAP/TD VACCINES (1 - Tdap) [code = DTAP/TDAP/TD VACCINES (1 - Tdap)] [facility] Scheduled Test 1991-01-14 00:00:00 DTAP/TDAP/TD VACCINES (1 - Tdap) [code = DTAP/TDAP/TD VACCINES (1 - Tdap)] [facility] Scheduled Test 1991-01-14 00:00:00 DTAP/TDAP/TD VACCINES (1 - Tdap) [code = DTAP/TDAP/TD VACCINES (1 - Tdap)] [facility] Scheduled Test 1991-01-14 00:00:00 DTAP/TDAP/TD VACCINES (1 - Tdap) [code = DTAP/TDAP/TD VACCINES (1 - Tdap)] [facility] Scheduled Test 1991-01-14 00:00:00 DTAP/TDAP/TD VACCINES (1 - Tdap) [code = DTAP/TDAP/TD VACCINES (1 - Tdap)] [facility] Scheduled Test 1991-01-14 00:00:00 DTAP/TDAP/TD VACCINES (1 - Tdap) [code = DTAP/TDAP/TD VACCINES (1 - Tdap)] [facility] Scheduled Test 1991-01-14 00:00:00 DTAP/TDAP/TD VACCINES (1 - Tdap) [code = DTAP/TDAP/TD VACCINES (1 - Tdap)] [facility] Scheduled Test 1991-01-14 00:00:00 DTAP/TDAP/TD VACCINES (1 - Tdap) [code = DTAP/TDAP/TD VACCINES (1 - Tdap)] [facility] Scheduled Test 1991-01-14 00:00:00 DTAP/TDAP/TD VACCINES (1 - Tdap) [code = DTAP/TDAP/TD VACCINES (1 - Tdap)] [facility] Scheduled Test 1991-01-14 00:00:00 DTAP/TDAP/TD VACCINES (1 - Tdap) [code = DTAP/TDAP/TD VACCINES (1 - Tdap)] [facility] Scheduled Test 1991-01-14 00:00:00 DTAP/TDAP/TD VACCINES (1 - Tdap) [code = DTAP/TDAP/TD VACCINES (1 - Tdap)] [facility] Scheduled Test 1991-01-14 00:00:00 DTAP/TDAP/TD VACCINES (1 - Tdap) [code = DTAP/TDAP/TD VACCINES (1 - Tdap)] [facility] Scheduled Test 1991-01-14 00:00:00 DTAP/TDAP/TD VACCINES (1 - Tdap) [code = DTAP/TDAP/TD VACCINES (1 - Tdap)] [facility] Scheduled Test 1991-01-14 00:00:00 DTAP/TDAP/TD VACCINES (1 - Tdap) [code = DTAP/TDAP/TD VACCINES (1 - Tdap)] [facility] Scheduled Test 1991-01-14 00:00:00 DTAP/TDAP/TD VACCINES (1 - Tdap) [code = DTAP/TDAP/TD VACCINES (1 - Tdap)] [facility] Scheduled Test 1991-01-14 00:00:00 DTAP/TDAP/TD VACCINES (1 - Tdap) [code = DTAP/TDAP/TD VACCINES (1 - Tdap)] [facility] Scheduled Test 1991-01-14 00:00:00 DTAP/TDAP/TD VACCINES (1 - Tdap) [code = DTAP/TDAP/TD VACCINES (1 - Tdap)] [facility] Scheduled Test 1991-01-14 00:00:00 DTAP/TDAP/TD VACCINES (1 - Tdap) [code = DTAP/TDAP/TD VACCINES (1 - Tdap)] [facility] Scheduled Test 1991-01-14 00:00:00 DTAP/TDAP/TD VACCINES (1 - Tdap) [code = DTAP/TDAP/TD VACCINES (1 - Tdap)] [facility] Scheduled Test 1991-01-14 00:00:00 DTAP/TDAP/TD VACCINES (1 - Tdap) [code = DTAP/TDAP/TD VACCINES (1 - Tdap)] [facility] Scheduled Test 1991-01-14 00:00:00 DTAP/TDAP/TD VACCINES (1 - Tdap) [code = DTAP/TDAP/TD VACCINES (1 - Tdap)] [facility] Scheduled Test 1991-01-14 00:00:00 DTAP/TDAP/TD VACCINES (1 - Tdap) [code = DTAP/TDAP/TD VACCINES (1 - Tdap)] [facility] Scheduled Test 1991-01-14 00:00:00 DTAP/TDAP/TD VACCINES (1 - Tdap) [code = DTAP/TDAP/TD VACCINES (1 - Tdap)] [facility] Scheduled Test 1991-01-14 00:00:00 DTAP/TDAP/TD VACCINES (1 - Tdap) [code = DTAP/TDAP/TD VACCINES (1 - Tdap)] [facility] Scheduled Test 1991-01-14 00:00:00 DTAP/TDAP/TD VACCINES (1 - Tdap) [code = DTAP/TDAP/TD VACCINES (1 - Tdap)] [facility] Scheduled Test 1991-01-14 00:00:00 DTAP/TDAP/TD VACCINES (1 - Tdap) [code = DTAP/TDAP/TD VACCINES (1 - Tdap)] [facility] Scheduled Test 1991-01-14 00:00:00 DTAP/TDAP/TD VACCINES (1 - Tdap) [code = DTAP/TDAP/TD VACCINES (1 - Tdap)] [facility] Scheduled Test 1991-01-14 00:00:00 DTAP/TDAP/TD VACCINES (1 - Tdap) [code = DTAP/TDAP/TD VACCINES (1 - Tdap)] [facility] Scheduled Test 1990-01-14 00:00:00 HEPATITIS C SCREENING [code = HEPATITIS C SCREENING] [facility] Scheduled Test 1990-01-14 00:00:00 HEPATITIS C SCREENING [code = HEPATITIS C SCREENING] [facility] Scheduled Test 1990-01-14 00:00:00 HEPATITIS C SCREENING [code = HEPATITIS C SCREENING] [facility] Scheduled Test 1990-01-14 00:00:00 HEPATITIS C SCREENING [code = HEPATITIS C SCREENING] [facility] Scheduled Test 1990-01-14 00:00:00 HEPATITIS C SCREENING [code = HEPATITIS C SCREENING] [facility] Scheduled Test 1990-01-14 00:00:00 HEPATITIS C SCREENING [code = HEPATITIS C SCREENING] [facility] Scheduled Test 1990-01-14 00:00:00 HEPATITIS C SCREENING [code = HEPATITIS C SCREENING] [facility] Scheduled Test 1990-01-14 00:00:00 HEPATITIS C SCREENING [code = HEPATITIS C SCREENING] [facility] Scheduled Test 1990-01-14 00:00:00 HEPATITIS C SCREENING [code = HEPATITIS C SCREENING] [facility] Scheduled Test 1990-01-14 00:00:00 HEPATITIS C SCREENING [code = HEPATITIS C SCREENING] [facility] Scheduled Test 1990-01-14 00:00:00 HEPATITIS C SCREENING [code = HEPATITIS C SCREENING] [facility] Scheduled Test 1990-01-14 00:00:00 HEPATITIS C SCREENING [code = HEPATITIS C SCREENING] [facility] Scheduled Test 1990-01-14 00:00:00 HEPATITIS C SCREENING [code = HEPATITIS C SCREENING] [facility] Scheduled Test 1990-01-14 00:00:00 HEPATITIS C SCREENING [code = HEPATITIS C SCREENING] [facility] Scheduled Test 1990-01-14 00:00:00 HEPATITIS C SCREENING [code = HEPATITIS C SCREENING] [facility] Scheduled Test 1990-01-14 00:00:00 HEPATITIS C SCREENING [code = HEPATITIS C SCREENING] [facility] Scheduled Test 1990-01-14 00:00:00 HEPATITIS C SCREENING [code = HEPATITIS C SCREENING] [facility] Scheduled Test 1990-01-14 00:00:00 HEPATITIS C SCREENING [code = HEPATITIS C SCREENING] [facility] Scheduled Test 1990-01-14 00:00:00 HEPATITIS C SCREENING [code = HEPATITIS C SCREENING] [facility] Scheduled Test 1990-01-14 00:00:00 HEPATITIS C SCREENING [code = HEPATITIS C SCREENING] [facility] Scheduled Test 1990-01-14 00:00:00 HEPATITIS C SCREENING [code = HEPATITIS C SCREENING] [facility] Scheduled Test 1990-01-14 00:00:00 HEPATITIS C SCREENING [code = HEPATITIS C SCREENING] [facility] Scheduled Test 1990-01-14 00:00:00 HEPATITIS C SCREENING [code = HEPATITIS C SCREENING] [facility] Scheduled Test 1990-01-14 00:00:00 HEPATITIS C SCREENING [code = HEPATITIS C SCREENING] [facility] Scheduled Test 1990-01-14 00:00:00 HEPATITIS C SCREENING [code = HEPATITIS C SCREENING] [facility] Scheduled Test 1990-01-14 00:00:00 HEPATITIS C SCREENING [code = HEPATITIS C SCREENING] [facility] Scheduled Test 1990-01-14 00:00:00 HEPATITIS C SCREENING [code = HEPATITIS C SCREENING] [facility] Scheduled Test 1990-01-14 00:00:00 HEPATITIS C SCREENING [code = HEPATITIS C SCREENING] [facility] Scheduled Test 1990-01-14 00:00:00 HEPATITIS C SCREENING [code = HEPATITIS C SCREENING] [facility] Scheduled Test 1990-01-14 00:00:00 HEPATITIS C SCREENING [code = HEPATITIS C SCREENING] [facility] Scheduled Test 1990-01-14 00:00:00 HEPATITIS C SCREENING [code = HEPATITIS C SCREENING] [facility] Scheduled Test 1990-01-14 00:00:00 HEPATITIS C SCREENING [code = HEPATITIS C SCREENING] [facility] Scheduled Test 1990-01-14 00:00:00 HEPATITIS C SCREENING [code = HEPATITIS C SCREENING] [facility] Scheduled Test 1990-01-14 00:00:00 HEPATITIS C SCREENING [code = HEPATITIS C SCREENING] [facility] Scheduled Test 1990-01-14 00:00:00 HEPATITIS C SCREENING [code = HEPATITIS C SCREENING] [facility] Scheduled Test 1990-01-14 00:00:00 HEPATITIS C SCREENING [code = HEPATITIS C SCREENING] [facility] Scheduled Test 1990-01-14 00:00:00 HEPATITIS C SCREENING [code = HEPATITIS C SCREENING] [facility] Scheduled Test 1990-01-14 00:00:00 HEPATITIS C SCREENING [code = HEPATITIS C SCREENING] [facility] Scheduled Test 1990-01-14 00:00:00 HEPATITIS C SCREENING [code = HEPATITIS C SCREENING] [facility] Scheduled Test 1990-01-14 00:00:00 HEPATITIS C SCREENING [code = HEPATITIS C SCREENING] [facility] Future Scheduled Test 1990-01-14 00:00:00 HEPATITIS C SCREENING [code = HEPATITIS C SCREENING] [facility] Future Scheduled Test 1990-01-14 00:00:00 HEPATITIS C SCREENING [code = HEPATITIS C SCREENING] [facility] Future Scheduled Test 1990-01-14 00:00:00 HEPATITIS C SCREENING [code = HEPATITIS C SCREENING] [facility] Future Scheduled Test 1990-01-14 00:00:00 HEPATITIS C SCREENING [code = HEPATITIS C SCREENING] [facility] Future Scheduled Test 1990-01-14 00:00:00 HEPATITIS C SCREENING [code = HEPATITIS C SCREENING] [facility] Future Scheduled Test 1990-01-14 00:00:00 HEPATITIS C SCREENING [code = HEPATITIS C SCREENING] [facility] Future Scheduled Test 1990-01-14 00:00:00 HEPATITIS C SCREENING [code = HEPATITIS C SCREENING] [facility] Future Scheduled Test 1990-01-14 00:00:00 HEPATITIS C SCREENING [code = HEPATITIS C SCREENING] [facility] Future Scheduled Test 1990-01-14 00:00:00 HEPATITIS C SCREENING [code = HEPATITIS C SCREENING] [facility] Future Scheduled Test 1990-01-14 00:00:00 HEPATITIS C SCREENING [code = HEPATITIS C SCREENING] [facility] Future Scheduled Test 1990-01-14 00:00:00 HEPATITIS C SCREENING [code = HEPATITIS C SCREENING] [facility] Future Scheduled Test 1990-01-14 00:00:00 HEPATITIS C SCREENING [code = HEPATITIS C SCREENING] [facility] Future Scheduled Test 1990-01-14 00:00:00 HEPATITIS C SCREENING [code = HEPATITIS C SCREENING] [facility] Future Scheduled Test 1990-01-14 00:00:00 HEPATITIS C SCREENING [code = HEPATITIS C SCREENING] [facility] Future Scheduled Test 1990-01-14 00:00:00 HEPATITIS C SCREENING [code = HEPATITIS C SCREENING] [facility] Future Scheduled Test 1990-01-14 00:00:00 HEPATITIS C SCREENING [code = HEPATITIS C SCREENING] [facility] Future Scheduled Test 1990-01-14 00:00:00 HEPATITIS C SCREENING [code = HEPATITIS C SCREENING] [facility] Future Scheduled Test 1990-01-14 00:00:00 HEPATITIS C SCREENING [code = HEPATITIS C SCREENING] [facility] Sched[facility] Test 1990-01-14 00:00:00 HEPATITIS C SCREENING [code = HEPATITIS C SCREENING] [facility] Test 1990-01-14 00:00:00 HEPATITIS C SCREENING [code = HEPATITIS C SCREENING] [facility] Test 1990-01-14 00:00:00 HEPATITIS C SCREENING [code = HEPATITIS C SCREENING] [facility] Test 1990-01-14 00:00:00 HEPATITIS C SCREENING [code = HEPATITIS C SCREENING] [facility] Test 1990-01-14 00:00:00 HEPATITIS C SCREENING [code = HEPATITIS C SCREENING] [facility] Test 1990-01-14 00:00:00 HEPATITIS C SCREENING [code = HEPATITIS C SCREENING] [facility] Test 1990-01-14 00:00:00 HEPATITIS C SCREENING [code = HEPATITIS C SCREENING] [facility] Test 1990-01-14 00:00:00 HEPATITIS C SCREENING [code = HEPATITIS C SCREENING] [facility] Test 1990-01-14 00:00:00 HEPATITIS C SCREENING [code = HEPATITIS C SCREENING] [facility] Test 1990-01-14 00:00:00 HEPATITIS C SCREENING [code = HEPATITIS C SCREENING] [facility] Test 1990-01-14 00:00:00 HEPATITIS C SCREENING [code = HEPATITIS C SCREENING] [facility] Test 1990-01-14 00:00:00 HEPATITIS C SCREENING [code = HEPATITIS C SCREENING] [facility] Test 1987-01-14 00:00:00 Human immunodeficiency virus screening (procedure) [code = 199396121] [facility] Test 1987-01-14 00:00:00 Human immunodeficiency virus screening (procedure) [code = 969683559] [facility] Sched[facility] Test 1984 00:00:00 Tobacco Cessation Counseling and Screening (12+) [code = Tobacco Cessation Counseling and Screening (12+)] [facility] Sched[facility] Test 1984 00:00:00 Tobacco Cessation Counseling and Screening (12+) [code = Tobacco Cessation Counseling and Screening (12+)] [facility] Sched[facility] Test 1984 00:00:00 Tobacco Cessation Counseling and Screening (12+) [code = Tobacco Cessation Counseling and Screening (12+)] [facility] Scheduled Test 1984 00:00:00 Tobacco Cessation Counseling and Screening (12+) [code = Tobacco Cessation Counseling and Screening (12+)] [facility] Scheduled Test 1984 00:00:00 Tobacco Cessation Counseling and Screening (12+) [code = Tobacco Cessation Counseling and Screening (12+)] [facility] Sched[facility] Test 1984 00:00:00 Tobacco Cessation Counseling and Screening (12+) [code = Tobacco Cessation Counseling and Screening (12+)] [facility] Scheduled Test 1984 00:00:00 Tobacco Cessation Counseling and Screening (12+) [code = Tobacco Cessation Counseling and Screening (12+)] [facility] Sched[facility] Test 1984 00:00:00 Tobacco Cessation Counseling and Screening (12+) [code = Tobacco Cessation Counseling and Screening (12+)] [facility] Sched[facility] Test 1984 00:00:00 Tobacco Cessation Counseling and Screening (12+) [code = Tobacco Cessation Counseling and Screening (12+)] [facility] Sched[facility] Test 1984 00:00:00 Tobacco Cessation Counseling and Screening (12+) [code = Tobacco Cessation Counseling and Screening (12+)] [facility] Sched[facility] Test 1984 00:00:00 Tobacco Cessation Counseling and Screening (12+) [code = Tobacco Cessation Counseling and Screening (12+)] [facility] Sched[facility] Test 1984 00:00:00 Tobacco Cessation Counseling and Screening (12+) [code = Tobacco Cessation Counseling and Screening (12+)] [facility] Sched[facility] Test 1984 00:00:00 Tobacco Cessation Counseling and Screening (12+) [code = Tobacco Cessation Counseling and Screening (12+)] [facility] Scheduled Test 1984 00:00:00 Tobacco Cessation Counseling and Screening (12+) [code = Tobacco Cessation Counseling and Screening (12+)] [facility] Sched[facility] Test 1984 00:00:00 Tobacco Cessation Counseling and Screening (12+) [code = Tobacco Cessation Counseling and Screening (12+)] [facility] Scheduled Test 1984 00:00:00 Tobacco Cessation Counseling and Screening (12+) [code = Tobacco Cessation Counseling and Screening (12+)] [facility] Scheduled Test 1984 00:00:00 Tobacco Cessation Counseling and Screening (12+) [code = Tobacco Cessation Counseling and Screening (12+)] [facility] Scheduled Test 1984 00:00:00 Tobacco Cessation Counseling and Screening (12+) [code = Tobacco Cessation Counseling and Screening (12+)] [facility] Scheduled Test 1984 00:00:00 Tobacco Cessation Counseling and Screening (12+) [code = Tobacco Cessation Counseling and Screening (12+)] [facility] Scheduled Test 1984 00:00:00 Tobacco Cessation Counseling and Screening (12+) [code = Tobacco Cessation Counseling and Screening (12+)] [facility] Sched[facility] Test 1984 00:00:00 Tobacco Cessation Counseling and Screening (12+) [code = Tobacco Cessation Counseling and Screening (12+)] [facility] Sched[facility] Test 1984 00:00:00 Tobacco Cessation Counseling and Screening (12+) [code = Tobacco Cessation Counseling and Screening (12+)] [facility] Scheduled Test 1984 00:00:00 Tobacco Cessation Counseling and Screening (12+) [code = Tobacco Cessation Counseling and Screening (12+)] [facility] Sched[facility] Test 1972 00:00:00 Screening for malignant neoplasm of breast (procedure) [code = 378363333] [facility] Sched[facility] Test 1972 00:00:00 CT Colonography (combo) [code = CT Colonography (combo)] [facility] Sched[facility] Test 1972 00:00:00 Screening for malignant neoplasm of colon (procedure) [code = 654544853] [facility] Sched[facility] Test 1972 00:00:00 Screening for malignant neoplasm of colon (procedure) [code = 395861367] [facility] Sched[facility] Test 1972 00:00:00 Screening for malignant neoplasm of colon (procedure) [code = 586105187] [facility] Sched[facility] Test 1972 00:00:00 Screening for malignant neoplasm of colon (procedure) [code = 558240849] [facility] Sched[facility] Test 1972 00:00:00 Sigmoidoscopy [code = Sigmoidoscopy] [facility] Sched[facility] Test 1972 00:00:00 Screening for malignant neoplasm of breast (procedure) [code = 591598504] [facility] Sched[facility] Test 1972 00:00:00 CT Colonography (combo) [code = CT Colonography (combo)] [facility] Sched[facility] Test 1972 00:00:00 Screening for malignant neoplasm of colon (procedure) [code = 439851473] [facility] Sched[facility] Test 1972 00:00:00 Screening for malignant neoplasm of colon (procedure) [code = 335273872] [facility] Sched[facility] Test 1972 00:00:00 Screening for malignant neoplasm of colon (procedure) [code = 508828216] [facility] Sched[facility] Test 1972 00:00:00 Screening for malignant neoplasm of colon (procedure) [code = 756718003] [facility] Sched[facility] Test 1972 00:00:00 Sigmoidoscopy [code = Sigmoidoscopy] [facility] Sched[facility] Test 1972 00:00:00 Screening for malignant neoplasm of breast (procedure) [code = 262529415] [facility] Sched[facility] Test 1972 00:00:00 CT Colonography (combo) [code = CT Colonography (combo)] [facility] Sched[facility] Test 1972 00:00:00 Screening for malignant neoplasm of colon (procedure) [code = 657039738] [facility] Test 1972 00:00:00 Screening for malignant neoplasm of colon (procedure) [code = 828434184] [facility] Test 1972 00:00:00 Screening for malignant neoplasm of colon (procedure) [code = 454727223] [facility] Sched[facility] Test 1972 00:00:00 Screening for malignant neoplasm of colon (procedure) [code = 896315949] [facility] Sched[facility] Test 1972 00:00:00 Sigmoidoscopy [code = Sigmoidoscopy] [facility] Sched[facility] Test 1972 00:00:00 Screening for malignant neoplasm of breast (procedure) [code = 475338106] [facility] Sched[facility] Test 1972 00:00:00 CT Colonography (combo) [code = CT Colonography (combo)] [facility] Sched[facility] Test 1972 00:00:00 Screening for malignant neoplasm of colon (procedure) [code = 438475037] [facility] Sched[facility] Test 1972 00:00:00 Screening for malignant neoplasm of colon (procedure) [code = 141398315] [facility] Sched[facility] Test 1972 00:00:00 Screening for malignant neoplasm of colon (procedure) [code = 153684012] [facility] Sched[facility] Test 1972 00:00:00 Screening for malignant neoplasm of colon (procedure) [code = 038267742] [facility] Sched[facility] Test 1972 00:00:00 Sigmoidoscopy [code = Sigmoidoscopy] [facility] Sched[facility] Test 1972 00:00:00 Screening for malignant neoplasm of breast (procedure) [code = 140100207] [facility] Sched[facility] Test 1972 00:00:00 CT Colonography (combo) [code = CT Colonography (combo)] [facility] Sched[facility] Test 1972 00:00:00 Screening for malignant neoplasm of colon (procedure) [code = 577509201] [facility] Sched[facility] Test 1972 00:00:00 Screening for malignant neoplasm of colon (procedure) [code = 798140038] [facility] Sched[facility] Test 1972 00:00:00 Screening for malignant neoplasm of colon (procedure) [code = 506196556] [facility] Test 1972 00:00:00 Screening for malignant neoplasm of colon (procedure) [code = 028588497] [facility] Sched[facility] Test 1972 00:00:00 Sigmoidoscopy [code = Sigmoidoscopy] [facility] Sched[facility] Test 1972 00:00:00 Screening for malignant neoplasm of breast (procedure) [code = 954947259] [facility] Sched[facility] Test 1972 00:00:00 CT Colonography (combo) [code = CT Colonography (combo)] [facility] Sched[facility] Test 1972 00:00:00 Screening for malignant neoplasm of colon (procedure) [code = 360673315] [facility] Sched[facility] Test 1972 00:00:00 Screening for malignant neoplasm of colon (procedure) [code = 242999822] [facility] Sched[facility] Test 1972 00:00:00 Screening for malignant neoplasm of colon (procedure) [code = 589762492] [facility] Sched[facility] Test 1972 00:00:00 Screening for malignant neoplasm of colon (procedure) [code = 151676670] [facility] Sched[facility] Test 1972 00:00:00 Sigmoidoscopy [code = Sigmoidoscopy] [facility] Sched[facility] Test 1972 00:00:00 Screening for malignant neoplasm of breast (procedure) [code = 099580476] [facility] Sched[facility] Test 1972 00:00:00 CT Colonography (combo) [code = CT Colonography (combo)] [facility] Sched[facility] Test 1972 00:00:00 Screening for malignant neoplasm of colon (procedure) [code = 871059861] [facility] Sched[facility] Test 1972 00:00:00 Screening for malignant neoplasm of colon (procedure) [code = 294569530] [facility] Sched[facility] Test 1972 00:00:00 Screening for malignant neoplasm of colon (procedure) [code = 512101470] [facility] Sched[facility] Test 1972 00:00:00 Screening for malignant neoplasm of colon (procedure) [code = 441393959] [facility] Sched[facility] Test 1972 00:00:00 Sigmoidoscopy [code = Sigmoidoscopy] [facility] Sched[facility] Test 1972 00:00:00 Screening for malignant neoplasm of breast (procedure) [code = 828468890] [facility] Sched[facility] Test 1972 00:00:00 CT Colonography (combo) [code = CT Colonography (combo)] [facility] Sched[facility] Test 1972 00:00:00 Screening for malignant neoplasm of colon (procedure) [code = 317262253] [facility] Sched[facility] Test 1972 00:00:00 Screening for malignant neoplasm of colon (procedure) [code = 629096967] [facility] Sched[facility] Test 1972 00:00:00 Screening for malignant neoplasm of colon (procedure) [code = 111375586] [facility] Sched[facility] Test 1972 00:00:00 Screening for malignant neoplasm of colon (procedure) [code = 119431358] [facility] Sched[facility] Test 1972 00:00:00 Sigmoidoscopy [code = Sigmoidoscopy] [facility] Sched[facility] Test 1972 00:00:00 Screening for malignant neoplasm of breast (procedure) [code = 686621529] [facility] Sched[facility] Test 1972 00:00:00 CT Colonography (combo) [code = CT Colonography (combo)] [facility] Sched[facility] Test 1972 00:00:00 Screening for malignant neoplasm of colon (procedure) [code = 668022990] [facility] Test 1972 00:00:00 Screening for malignant neoplasm of colon (procedure) [code = 417816652] [facility] Test 1972 00:00:00 Screening for malignant neoplasm of colon (procedure) [code = 383544352] [facility] Test 1972 00:00:00 Screening for malignant neoplasm of colon (procedure) [code = 858752021] [facility] Sched[facility] Test 1972 00:00:00 Sigmoidoscopy [code = Sigmoidoscopy] [facility] Test 1972 00:00:00 Screening for malignant neoplasm of breast (procedure) [code = 495836746] [facility] Sched[facility] Test 1972 00:00:00 CT Colonography (combo) [code = CT Colonography (combo)] [facility] Test 1972 00:00:00 Screening for malignant neoplasm of colon (procedure) [code = 662081112] [facility] Test 1972 00:00:00 Screening for malignant neoplasm of colon (procedure) [code = 221059954] [facility] Sched[facility] Test 1972 00:00:00 Screening for malignant neoplasm of colon (procedure) [code = 549373557] [facility] Sched[facility] Test 1972 00:00:00 Screening for malignant neoplasm of colon (procedure) [code = 050621844] [facility] Sched[facility] Test 1972 00:00:00 Sigmoidoscopy [code = Sigmoidoscopy] [facility] Test 1972 00:00:00 Screening for malignant neoplasm of breast (procedure) [code = 576008366] [facility] Sched[facility] Test 1972 00:00:00 CT Colonography (combo) [code = CT Colonography (combo)] [facility] Test 1972 00:00:00 Screening for malignant neoplasm of colon (procedure) [code = 801236605] [facility] Sched[facility] Test 1972 00:00:00 Screening for malignant neoplasm of colon (procedure) [code = 016990356] [facility] Test 1972 00:00:00 Screening for malignant neoplasm of colon (procedure) [code = 870041524] [facility] Sched[facility] Test 1972 00:00:00 Screening for malignant neoplasm of colon (procedure) [code = 697077796] [facility] Sched[facility] Test 1972 00:00:00 Sigmoidoscopy [code = Sigmoidoscopy] [facility] Sched[facility] Test 1972 00:00:00 Screening for malignant neoplasm of breast (procedure) [code = 433080962] [facility] Sched[facility] Test 1972 00:00:00 CT Colonography (combo) [code = CT Colonography (combo)] [facility] Test 1972 00:00:00 Screening for malignant neoplasm of colon (procedure) [code = 187716517] [facility] Test 1972 00:00:00 Screening for malignant neoplasm of colon (procedure) [code = 579408698] [facility] Test 1972 00:00:00 Screening for malignant neoplasm of colon (procedure) [code = 787296612] [facility] Test 1972 00:00:00 Screening for malignant neoplasm of colon (procedure) [code = 933892253] [facility] Test 1972 00:00:00 Sigmoidoscopy [code = Sigmoidoscopy] [facility] Test 1972 00:00:00 Screening for malignant neoplasm of breast (procedure) [code = 701019281] [facility] Sched[facility] Test 1972 00:00:00 CT Colonography (combo) [code = CT Colonography (combo)] [facility] Test 1972 00:00:00 Screening for malignant neoplasm of colon (procedure) [code = 906382613] [facility] Sched[facility] Test 1972 00:00:00 Screening for malignant neoplasm of colon (procedure) [code = 767077637] [facility] Sched[facility] Test 1972 00:00:00 Screening for malignant neoplasm of colon (procedure) [code = 240327624] [facility] Sched[facility] Test 1972 00:00:00 Screening for malignant neoplasm of colon (procedure) [code = 861230773] [facility] Sched[facility] Test 1972 00:00:00 Sigmoidoscopy [code = Sigmoidoscopy] [facility] Sched[facility] Test 1972 00:00:00 Screening for malignant neoplasm of breast (procedure) [code = 920305504] [facility] Sched[facility] Test 1972 00:00:00 CT Colonography (combo) [code = CT Colonography (combo)] [facility] Test 1972 00:00:00 Screening for malignant neoplasm of colon (procedure) [code = 183904624] [facility] Test 1972 00:00:00 Screening for malignant neoplasm of colon (procedure) [code = 200583219] [facility] Sched[facility] Test 1972 00:00:00 Screening for malignant neoplasm of colon (procedure) [code = 498832395] [facility] Test 1972 00:00:00 Screening for malignant neoplasm of colon (procedure) [code = 065769559] [facility] Test 1972 00:00:00 Sigmoidoscopy [code = Sigmoidoscopy] [facility] Test 1972 00:00:00 Screening for malignant neoplasm of breast (procedure) [code = 357725935] [facility] Sched[facility] Test 1972 00:00:00 CT Colonography (combo) [code = CT Colonography (combo)] [facility] Test 1972 00:00:00 Screening for malignant neoplasm of colon (procedure) [code = 474432311] [facility] Test 1972 00:00:00 Screening for malignant neoplasm of colon (procedure) [code = 002620341] [facility] Test 1972 00:00:00 Screening for malignant neoplasm of colon (procedure) [code = 934880658] [facility] Test 1972 00:00:00 Screening for malignant neoplasm of colon (procedure) [code = 397182033] [facility] Sched[facility] Test 1972 00:00:00 Sigmoidoscopy [code = Sigmoidoscopy] [facility] Test 1972 00:00:00 Screening for malignant neoplasm of breast (procedure) [code = 274638057] [facility] Sched[facility] Test 1972 00:00:00 CT Colonography (combo) [code = CT Colonography (combo)] [facility] Test 1972 00:00:00 Screening for malignant neoplasm of colon (procedure) [code = 248415903] [facility] Test 1972 00:00:00 Screening for malignant neoplasm of colon (procedure) [code = 335474558] [facility] Test 1972 00:00:00 Screening for malignant neoplasm of colon (procedure) [code = 202607745] [facility] Test 1972 00:00:00 Screening for malignant neoplasm of colon (procedure) [code = 116115178] [facility] Test 1972 00:00:00 Sigmoidoscopy [code = Sigmoidoscopy] [facility] Test 1972 00:00:00 Screening for malignant neoplasm of breast (procedure) [code = 568838271] [facility] Test 1972 00:00:00 CT Colonography (combo) [code = CT Colonography (combo)] [facility] Test 1972 00:00:00 Screening for malignant neoplasm of colon (procedure) [code = 001378115] [facility] Test 1972 00:00:00 Screening for malignant neoplasm of colon (procedure) [code = 718662706] [facility] Test 1972 00:00:00 Screening for malignant neoplasm of colon (procedure) [code = 817016338] [facility] Test 1972 00:00:00 Screening for malignant neoplasm of colon (procedure) [code = 527431530] [facility] Test 1972 00:00:00 Sigmoidoscopy [code = Sigmoidoscopy] [facility] Test 1972 00:00:00 Screening for malignant neoplasm of breast (procedure) [code = 685362022] [facility] Sched[facility] Test 1972 00:00:00 CT Colonography (combo) [code = CT Colonography (combo)] [facility] Test 1972 00:00:00 Screening for malignant neoplasm of breast (procedure) [code = 831638050] [facility] Test 1972 00:00:00 CT Colonography (combo) [code = CT Colonography (combo)] [facility] Test 1972 00:00:00 Screening for malignant neoplasm of colon (procedure) [code = 935944117] [facility] Test 1972 00:00:00 Screening for malignant neoplasm of colon (procedure) [code = 459120278] [facility] Test 1972 00:00:00 Screening for malignant neoplasm of colon (procedure) [code = 585099661] [facility] Test 1972 00:00:00 Screening for malignant neoplasm of colon (procedure) [code = 051062325] [facility] Test 1972 00:00:00 Sigmoidoscopy [code = Sigmoidoscopy] [facility] Test 1972 00:00:00 Screening for malignant neoplasm of colon (procedure) [code = 474453870] [facility] Test 1972 00:00:00 Screening for malignant neoplasm of colon (procedure) [code = 229989445] [facility] Test 1972 00:00:00 Screening for malignant neoplasm of colon (procedure) [code = 350641732] [facility] Test 1972 00:00:00 Screening for malignant neoplasm of colon (procedure) [code = 463538339] [facility] Test 1972 00:00:00 Sigmoidoscopy [code = Sigmoidoscopy] [facility] Test 1972 00:00:00 Screening for malignant neoplasm of breast (procedure) [code = 340307867] [facility] Test 1972 00:00:00 CT Colonography (combo) [code = CT Colonography (combo)] [facility] Test 1972 00:00:00 Screening for malignant neoplasm of colon (procedure) [code = 435564110] [facility] Test 1972 00:00:00 Screening for malignant neoplasm of colon (procedure) [code = 560162863] [facility] Test 1972 00:00:00 Screening for malignant neoplasm of colon (procedure) [code = 431630336] [facility] Test 1972 00:00:00 Screening for malignant neoplasm of colon (procedure) [code = 405303579] [facility] Test 1972 00:00:00 Sigmoidoscopy [code = Sigmoidoscopy] [facility] Test 1972 00:00:00 Screening for malignant neoplasm of breast (procedure) [code = 456821816] [facility] Test 1972 00:00:00 CT Colonography (combo) [code = CT Colonography (combo)] [facility] Test 1972 00:00:00 Screening for malignant neoplasm of colon (procedure) [code = 529780626] [facility] Test 1972 00:00:00 Screening for malignant neoplasm of colon (procedure) [code = 415377824] [facility] Test 1972 00:00:00 Screening for malignant neoplasm of colon (procedure) [code = 956416050] [facility] Test 1972 00:00:00 Screening for malignant neoplasm of colon (procedure) [code = 123554653] [facility] Test 1972 00:00:00 Sigmoidoscopy [code = Sigmoidoscopy] [facility] Test 1972 00:00:00 Screening for malignant neoplasm of breast (procedure) [code = 767422587] [facility] Test 1972 00:00:00 CT Colonography (combo) [code = CT Colonography (combo)] [facility] Test 1972 00:00:00 Screening for malignant neoplasm of colon (procedure) [code = 358628897] [facility] Test 1972 00:00:00 Screening for malignant neoplasm of colon (procedure) [code = 156862369] [facility] Test 1972 00:00:00 Screening for malignant neoplasm of colon (procedure) [code = 411834473] [facility] Test 1972 00:00:00 Screening for malignant neoplasm of colon (procedure) [code = 293383153] [facility] Test 1972 00:00:00 Sigmoidoscopy [code = Sigmoidoscopy] [facility] 1972 00:00:00 Screening for malignant neoplasm of breast (procedure) [code = 473722571] [facility] 1972 00:00:00 CT Colonography (combo) [code = CT Colonography (combo)] [facility] 1972 00:00:00 Screening for malignant neoplasm of colon (procedure) [code = 981701201] [facility] 1972 00:00:00 Screening for malignant neoplasm of colon (procedure) [code = 272029882] [facility] 1972 00:00:00 Screening for malignant neoplasm of colon (procedure) [code = 913537129] [facility] 1972 00:00:00 Screening for malignant neoplasm of colon (procedure) [code = 366639225] [facility] Test 1972 00:00:00 Sigmoidoscopy [code = Sigmoidoscopy] [facility] 1972 00:00:00 Screening for malignant neoplasm of breast (procedure) [code = 564946610] [facility] 1972 00:00:00 CT Colonography (combo) [code = CT Colonography (combo)] [facility] 1972 00:00:00 Screening for malignant neoplasm of colon (procedure) [code = 824436317] [facility] 1972 00:00:00 Screening for malignant neoplasm of colon (procedure) [code = 853834995] [facility] 1972 00:00:00 Screening for malignant neoplasm of colon (procedure) [code = 449232878] [facility] 1972 00:00:00 Screening for malignant neoplasm of colon (procedure) [code = 115562679] [facility] 1972 00:00:00 Sigmoidoscopy [code = Sigmoidoscopy] [facility] 1972 00:00:00 Screening for malignant neoplasm of breast (procedure) [code = 203447541] [facility] 1972 00:00:00 CT Colonography (combo) [code = CT Colonography (combo)] [facility] 1972 00:00:00 Screening for malignant neoplasm of colon (procedure) [code = 437434128] [facility] 1972 00:00:00 Screening for malignant neoplasm of colon (procedure) [code = 141453930] [facility] 1972 00:00:00 Screening for malignant neoplasm of colon (procedure) [code = 292465216] [facility] 1972 00:00:00 Screening for malignant neoplasm of colon (procedure) [code = 366827195] [facility] 1972 00:00:00 Sigmoidoscopy [code = Sigmoidoscopy] [facility] 1972 00:00:00 Screening for malignant neoplasm of breast (procedure) [code = 363064670] [facility] 1972 00:00:00 CT Colonography (combo) [code = CT Colonography (combo)] [facility] 1972 00:00:00 Screening for malignant neoplasm of colon (procedure) [code = 109249001] [facility] 1972 00:00:00 Screening for malignant neoplasm of colon (procedure) [code = 527635691] [facility] 1972 00:00:00 Screening for malignant neoplasm of colon (procedure) [code = 232655515] [facility] 1972 00:00:00 Screening for malignant neoplasm of colon (procedure) [code = 324474930] [facility] 1972 00:00:00 Screening for malignant neoplasm of breast (procedure) [code = 773738425] [facility] Test 1972 00:00:00 CT Colonography (combo) [code = CT Colonography (combo)] [facility] Test 1972 00:00:00 Sigmoidoscopy [code = Sigmoidoscopy] [facility] 1972 00:00:00 Screening for malignant neoplasm of colon (procedure) [code = 451107635] [facility] 1972 00:00:00 Screening for malignant neoplasm of colon (procedure) [code = 501804105] [facility] 1972 00:00:00 Screening for malignant neoplasm of colon (procedure) [code = 262563343] [facility] 1972 00:00:00 Screening for malignant neoplasm of colon (procedure) [code = 302091999] [facility] 1972 00:00:00 Sigmoidoscopy [code = Sigmoidoscopy] [facility] 1972 00:00:00 Screening for malignant neoplasm of breast (procedure) [code = 041104290] [facility] 1972 00:00:00 CT Colonography (combo) [code = CT Colonography (combo)] [facility] 1972 00:00:00 Screening for malignant neoplasm of colon (procedure) [code = 112135877] [facility] 1972 00:00:00 Screening for malignant neoplasm of colon (procedure) [code = 211823223] [facility] 1972 00:00:00 Screening for malignant neoplasm of colon (procedure) [code = 693847542] [facility] 1972 00:00:00 Screening for malignant neoplasm of colon (procedure) [code = 407256210] [facility] 1972 00:00:00 Sigmoidoscopy [code = Sigmoidoscopy] [facility] 1972 00:00:00 Screening for malignant neoplasm of breast (procedure) [code = 990043047] [facility] 1972 00:00:00 CT Colonography (combo) [code = CT Colonography (combo)] [facility] 1972 00:00:00 Screening for malignant neoplasm of colon (procedure) [code = 860153734] [facility] 1972 00:00:00 Screening for malignant neoplasm of colon (procedure) [code = 615970799] [facility] 1972 00:00:00 Screening for malignant neoplasm of colon (procedure) [code = 522647394] [facility] 1972 00:00:00 Screening for malignant neoplasm of colon (procedure) [code = 187243818] [facility] Test 1972 00:00:00 Sigmoidoscopy [code = Sigmoidoscopy] [facility] 1972 00:00:00 Screening for malignant neoplasm of breast (procedure) [code = 970686969] [facility] Test 1972 00:00:00 CT Colonography (combo) [code = CT Colonography (combo)] [facility] 1972 00:00:00 Screening for malignant neoplasm of colon (procedure) [code = 581653733] [facility] 1972 00:00:00 Screening for malignant neoplasm of colon (procedure) [code = 552051473] [facility] 1972 00:00:00 Screening for malignant neoplasm of colon (procedure) [code = 326759867] [facility] 1972 00:00:00 Screening for malignant neoplasm of colon (procedure) [code = 210300054] [facility] 1972 00:00:00 Sigmoidoscopy [code = Sigmoidoscopy] [facility] 1972 00:00:00 Screening for malignant neoplasm of breast (procedure) [code = 450968421] [facility] Test 1972 00:00:00 CT Colonography (combo) [code = CT Colonography (combo)] [facility] 1972 00:00:00 Screening for malignant neoplasm of colon (procedure) [code = 447644962] [facility] 1972 00:00:00 Screening for malignant neoplasm of colon (procedure) [code = 296915040] [facility] 1972 00:00:00 Screening for malignant neoplasm of colon (procedure) [code = 593595141] [facility] 1972 00:00:00 Screening for malignant neoplasm of colon (procedure) [code = 919897455] [facility] 1972 00:00:00 Sigmoidoscopy [code = Sigmoidoscopy] [facility] 1972 00:00:00 Screening for malignant neoplasm of breast (procedure) [code = 851237735] [facility] 1972 00:00:00 CT Colonography (combo) [code = CT Colonography (combo)] [facility] 1972 00:00:00 Screening for malignant neoplasm of colon (procedure) [code = 750844180] [facility] 1972 00:00:00 Screening for malignant neoplasm of colon (procedure) [code = 006865430] [facility] 1972 00:00:00 Screening for malignant neoplasm of colon (procedure) [code = 835500053] [facility] 1972 00:00:00 Screening for malignant neoplasm of colon (procedure) [code = 133068000] [facility] 1972 00:00:00 Sigmoidoscopy [code = Sigmoidoscopy] [facility] 1972 00:00:00 Screening for malignant neoplasm of breast (procedure) [code = 465226454] [facility] 1972 00:00:00 CT Colonography (combo) [code = CT Colonography (combo)] [facility] 1972 00:00:00 Screening for malignant neoplasm of colon (procedure) [code = 405007202] [facility] 1972 00:00:00 Screening for malignant neoplasm of colon (procedure) [code = 125303280] [facility] 1972 00:00:00 Screening for malignant neoplasm of breast (procedure) [code = 193607485] [facility] 1972 00:00:00 Screening for malignant neoplasm of colon (procedure) [code = 647010314] [facility] 1972 00:00:00 CT Colonography (combo) [code = CT Colonography (combo)] [facility] 1972 00:00:00 Screening for malignant neoplasm of colon (procedure) [code = 296834313] [facility] 1972 00:00:00 Screening for malignant neoplasm of colon (procedure) [code = 693589914] [facility] 1972 00:00:00 Screening for malignant neoplasm of colon (procedure) [code = 117797273] [facility] 1972 00:00:00 Screening for malignant neoplasm of colon (procedure) [code = 519730761] [facility] Test 1972 00:00:00 Sigmoidoscopy [code = Sigmoidoscopy] [facility] 1972 00:00:00 Screening for malignant neoplasm of colon (procedure) [code = 138244778] [facility] Test 1972 00:00:00 Sigmoidoscopy [code = Sigmoidoscopy] [facility] Test 1972 00:00:00 Screening for malignant neoplasm of breast (procedure) [code = 192266511] [facility] Test 1972 00:00:00 CT Colonography (combo) [code = CT Colonography (combo)] [facility] 1972 00:00:00 Screening for malignant neoplasm of colon (procedure) [code = 838431855] [facility] 1972 00:00:00 Screening for malignant neoplasm of colon (procedure) [code = 738419164] [facility] 1972 00:00:00 Screening for malignant neoplasm of colon (procedure) [code = 138485076] [facility] Test 1972 00:00:00 Screening for malignant neoplasm of colon (procedure) [code = 171293795] [facility] 1972 00:00:00 Sigmoidoscopy [code = Sigmoidoscopy] [facility] Test 1972 00:00:00 Screening for malignant neoplasm of breast (procedure) [code = 858273317] [facility] Test 1972 00:00:00 CT Colonography (combo) [code = CT Colonography (combo)] [facility] 1972 00:00:00 Screening for malignant neoplasm of colon (procedure) [code = 124111696] [facility] 1972 00:00:00 Screening for malignant neoplasm of colon (procedure) [code = 008558986] [facility] Test 1972 00:00:00 Screening for malignant neoplasm of colon (procedure) [code = 710004214] [facility] Test 1972 00:00:00 Screening for malignant neoplasm of colon (procedure) [code = 488908246] [facility] Test 1972 00:00:00 Sigmoidoscopy [code = Sigmoidoscopy] [facility] Test 1972 00:00:00 Screening for malignant neoplasm of breast (procedure) [code = 697056277] [facility] Test 1972 00:00:00 CT Colonography (combo) [code = CT Colonography (combo)] [facility] 1972 00:00:00 Screening for malignant neoplasm of colon (procedure) [code = 988967399] [facility] Test 1972 00:00:00 Screening for malignant neoplasm of colon (procedure) [code = 704650088] [facility] Test 1972 00:00:00 Screening for malignant neoplasm of colon (procedure) [code = 615321382] [facility] Test 1972 00:00:00 Screening for malignant neoplasm of colon (procedure) [code = 571905010] [facility] Test 1972 00:00:00 Sigmoidoscopy [code = Sigmoidoscopy] [facility] 1972 00:00:00 Screening for malignant neoplasm of breast (procedure) [code = 875065952] [facility] Test 1972 00:00:00 CT Colonography (combo) [code = CT Colonography (combo)] [facility] 1972 00:00:00 Screening for malignant neoplasm of colon (procedure) [code = 103921899] [facility] Test 1972 00:00:00 Screening for malignant neoplasm of colon (procedure) [code = 575113716] [facility] 1972 00:00:00 Screening for malignant neoplasm of colon (procedure) [code = 148612896] [facility] 1972 00:00:00 Screening for malignant neoplasm of colon (procedure) [code = 235675994] [facility] 1972 00:00:00 Sigmoidoscopy [code = Sigmoidoscopy] [facility] Test 1972 00:00:00 Screening for malignant neoplasm of breast (procedure) [code = 483307296] [facility] Test 1972 00:00:00 CT Colonography (combo) [code = CT Colonography (combo)] [facility] 1972 00:00:00 Screening for malignant neoplasm of colon (procedure) [code = 325784233] [facility] 1972 00:00:00 Screening for malignant neoplasm of colon (procedure) [code = 140936080] [facility] 1972 00:00:00 Screening for malignant neoplasm of colon (procedure) [code = 538575823] [facility] Test 1972 00:00:00 Screening for malignant neoplasm of colon (procedure) [code = 797667832] [facility] Test 1972 00:00:00 Sigmoidoscopy [code = Sigmoidoscopy] [facility] Test 1972 00:00:00 Screening for malignant neoplasm of breast (procedure) [code = 979159002] [facility] Test 1972 00:00:00 CT Colonography (combo) [code = CT Colonography (combo)] [facility] 1972 00:00:00 Screening for malignant neoplasm of colon (procedure) [code = 574424313] [facility] 1972 00:00:00 Screening for malignant neoplasm of colon (procedure) [code = 029741794] [facility] 1972 00:00:00 Screening for malignant neoplasm of colon (procedure) [code = 153897879] [facility] Test 1972 00:00:00 Screening for malignant neoplasm of colon (procedure) [code = 694924507] [facility] Test 1972 00:00:00 Sigmoidoscopy [code = Sigmoidoscopy] [facility] Test 1972 00:00:00 Screening for malignant neoplasm of breast (procedure) [code = 914549971] [facility] Test 1972 00:00:00 CT Colonography (combo) [code = CT Colonography (combo)] [facility] 1972 00:00:00 Screening for malignant neoplasm of colon (procedure) [code = 805369239] [facility] 1972 00:00:00 Screening for malignant neoplasm of colon (procedure) [code = 331025662] [facility] Test 1972 00:00:00 Screening for malignant neoplasm of colon (procedure) [code = 599316830] [facility] Test 1972 00:00:00 Screening for malignant neoplasm of colon (procedure) [code = 958730469] [facility] Test 1972 00:00:00 Sigmoidoscopy [code = Sigmoidoscopy] [facility] 1972 00:00:00 Screening for malignant neoplasm of breast (procedure) [code = 353146221] [facility] Test 1972 00:00:00 CT Colonography (combo) [code = CT Colonography (combo)] [facility] Test 1972 00:00:00 Screening for malignant neoplasm of colon (procedure) [code = 316052305] [facility] 1972 00:00:00 Screening for malignant neoplasm of colon (procedure) [code = 508101514] [facility] 1972 00:00:00 Screening for malignant neoplasm of colon (procedure) [code = 187732477] [facility] 1972 00:00:00 Screening for malignant neoplasm of colon (procedure) [code = 289842940] [facility] 1972 00:00:00 Sigmoidoscopy [code = Sigmoidoscopy] [facility] 1972 00:00:00 Screening for malignant neoplasm of breast (procedure) [code = 099465393] [facility] 1972 00:00:00 CT Colonography (combo) [code = CT Colonography (combo)] [facility] 1972 00:00:00 Screening for malignant neoplasm of colon (procedure) [code = 092005889] [facility] 1972 00:00:00 Screening for malignant neoplasm of colon (procedure) [code = 083662041] [facility] 1972 00:00:00 Screening for malignant neoplasm of colon (procedure) [code = 954651074] [facility] 1972 00:00:00 Screening for malignant neoplasm of colon (procedure) [code = 391784136] [facility] 1972 00:00:00 Sigmoidoscopy [code = Sigmoidoscopy] [facility] 1972 00:00:00 Screening for malignant neoplasm of breast (procedure) [code = 649125996] [facility] 1972 00:00:00 CT Colonography (combo) [code = CT Colonography (combo)] [facility] 1972 00:00:00 Screening for malignant neoplasm of colon (procedure) [code = 401576275] [facility] 1972 00:00:00 Screening for malignant neoplasm of colon (procedure) [code = 802869565] [facility] 1972 00:00:00 Screening for malignant neoplasm of colon (procedure) [code = 200505299] [facility] Test 1972 00:00:00 Screening for malignant neoplasm of colon (procedure) [code = 709720902] [facility] Test 1972 00:00:00 Sigmoidoscopy [code = Sigmoidoscopy] [facility] 1972 00:00:00 Screening for malignant neoplasm of breast (procedure) [code = 829234021] [facility] 1972 00:00:00 CT Colonography (combo) [code = CT Colonography (combo)] [facility] 1972 00:00:00 Screening for malignant neoplasm of colon (procedure) [code = 571364742] [facility] 1972 00:00:00 Screening for malignant neoplasm of breast (procedure) [code = 502965307] [facility] Test 1972 00:00:00 CT Colonography (combo) [code = CT Colonography (combo)] [facility] 1972 00:00:00 Screening for malignant neoplasm of colon (procedure) [code = 657200442] [facility] 1972 00:00:00 Screening for malignant neoplasm of colon (procedure) [code = 564362957] [facility] 1972 00:00:00 Screening for malignant neoplasm of colon (procedure) [code = 086496665] [facility] 1972 00:00:00 Screening for malignant neoplasm of colon (procedure) [code = 297043836] [facility] Test 1972 00:00:00 Sigmoidoscopy [code = Sigmoidoscopy] [facility] 1972 00:00:00 Screening for malignant neoplasm of colon (procedure) [code = 880322957] [facility] Test 1972 00:00:00 Screening for malignant neoplasm of colon (procedure) [code = 603130287] [facility] 1972 00:00:00 Screening for malignant neoplasm of colon (procedure) [code = 170022901] [facility] Test 1972 00:00:00 Sigmoidoscopy [code = Sigmoidoscopy] [facility] Test 1972 00:00:00 Screening for malignant neoplasm of breast (procedure) [code = 004038454] [facility] Test 1972 00:00:00 CT Colonography (combo) [code = CT Colonography (combo)] [facility] 1972 00:00:00 Screening for malignant neoplasm of colon (procedure) [code = 748325042] [facility] Test 1972 00:00:00 Screening for malignant neoplasm of colon (procedure) [code = 302154029] [facility] Test 1972 00:00:00 Screening for malignant neoplasm of colon (procedure) [code = 480320636] [facility] Test 1972 00:00:00 Screening for malignant neoplasm of colon (procedure) [code = 991388719] [facility] Test 1972 00:00:00 Sigmoidoscopy [code = Sigmoidoscopy] [facility] 1972 00:00:00 Screening for malignant neoplasm of breast (procedure) [code = 280333576] [facility] 1972 00:00:00 CT Colonography (combo) [code = CT Colonography (combo)] [facility] 1972 00:00:00 Screening for malignant neoplasm of colon (procedure) [code = 973123844] [facility] 1972 00:00:00 Screening for malignant neoplasm of colon (procedure) [code = 937538279] [facility] Test 1972 00:00:00 Screening for malignant neoplasm of colon (procedure) [code = 540663540] [facility] 1972 00:00:00 Screening for malignant neoplasm of colon (procedure) [code = 152901722] [facility] Test 1972 00:00:00 Sigmoidoscopy [code = Sigmoidoscopy] [facility] Test 1972 00:00:00 Screening for malignant neoplasm of breast (procedure) [code = 340656320] [facility] 1972 00:00:00 CT Colonography (combo) [code = CT Colonography (combo)] [facility] 1972 00:00:00 Screening for malignant neoplasm of colon (procedure) [code = 734625527] [facility] 1972 00:00:00 Screening for malignant neoplasm of colon (procedure) [code = 850187352] [facility] Test 1972 00:00:00 Screening for malignant neoplasm of colon (procedure) [code = 792881964] [facility] Test 1972 00:00:00 Screening for malignant neoplasm of colon (procedure) [code = 229264020] [facility] Test 1972 00:00:00 Sigmoidoscopy [code = Sigmoidoscopy] [facility] Test 1972 00:00:00 Screening for malignant neoplasm of breast (procedure) [code = 815871170] [facility] Test 1972 00:00:00 CT Colonography (combo) [code = CT Colonography (combo)] [facility] 1972 00:00:00 Screening for malignant neoplasm of colon (procedure) [code = 388311104] [facility] 1972 00:00:00 Screening for malignant neoplasm of colon (procedure) [code = 078077225] [facility] Test 1972 00:00:00 Screening for malignant neoplasm of colon (procedure) [code = 547790188] [facility] 1972 00:00:00 Screening for malignant neoplasm of colon (procedure) [code = 103730737] [facility] 1972 00:00:00 Sigmoidoscopy [code = Sigmoidoscopy] [facility] Scheduled Test 1972 00:00:00 Screening for malignant neoplasm of breast (procedure) [code = 409184885] [facility] Scheduled Test 1972 00:00:00 CT Colonography (combo) [code = CT Colonography (combo)] [facility] Scheduled Test 1972 00:00:00 Screening for malignant neoplasm of colon (procedure) [code = 921122972] [facility] Scheduled Test 1972 00:00:00 Screening for malignant neoplasm of colon (procedure) [code = 152271009] [facility] Scheduled Test 1972 00:00:00 Screening for malignant neoplasm of colon (procedure) [code = 406602169] [facility] Scheduled Test 1972 00:00:00 Screening for malignant neoplasm of colon (procedure) [code = 305404259] [facility] Scheduled Test 1972 00:00:00 Screening for malignant neoplasm of breast (procedure) [code = 176646603] [facility] Scheduled Test 1972 00:00:00 Sigmoidoscopy [code = Sigmoidoscopy] [facility] Scheduled Test 1972 00:00:00 CT Colonography (combo) [code = CT Colonography (combo)] [facility] Scheduled Test 1972 00:00:00 Screening for malignant neoplasm of colon (procedure) [code = 559029601] [facility] Scheduled Test 1972 00:00:00 Screening for malignant neoplasm of breast (procedure) [code = 610968955] [facility] Scheduled Test 1972 00:00:00 CT Colonography (combo) [code = CT Colonography (combo)] [facility] Scheduled Test 1972 00:00:00 Screening for malignant neoplasm of colon (procedure) [code = 420165749] [facility] Scheduled Test 1972 00:00:00 Screening for malignant neoplasm of colon (procedure) [code = 277056985] [facility] Scheduled Test 1972 00:00:00 Screening for malignant neoplasm of colon (procedure) [code = 737030313] [facility] Scheduled Test 1972 00:00:00 Screening for malignant neoplasm of colon (procedure) [code = 595981921] [facility] Scheduled Test 1972 00:00:00 Screening for malignant neoplasm of colon (procedure) [code = 338029833] [facility] Scheduled Test 1972 00:00:00 Sigmoidoscopy [code = Sigmoidoscopy] [facility] Scheduled Test 1972 00:00:00 Screening for malignant neoplasm of colon (procedure) [code = 364940685] [facility] Scheduled Test 1972 00:00:00 Screening for malignant neoplasm of colon (procedure) [code = 973116494] [facility] Scheduled Test 1972 00:00:00 Screening for malignant neoplasm of breast (procedure) [code = 235633522] [facility] Scheduled Test 1972 00:00:00 CT Colonography (combo) [code = CT Colonography (combo)] [facility] Scheduled Test 1972 00:00:00 Screening for malignant neoplasm of colon (procedure) [code = 342918473] [facility] Scheduled Test 1972 00:00:00 Screening for malignant neoplasm of colon (procedure) [code = 867656318] [facility] Scheduled Test 1972 00:00:00 Sigmoidoscopy [code = Sigmoidoscopy] [facility] Scheduled Test 1972 00:00:00 Screening for malignant neoplasm of colon (procedure) [code = 704957893] [facility] Scheduled Test 1972 00:00:00 Screening for malignant neoplasm of colon (procedure) [code = 111110388] [facility] Scheduled Test 1972 00:00:00 Sigmoidoscopy [code = Sigmoidoscopy] [facility] Scheduled Test 1972 00:00:00 Screening for malignant neoplasm of breast (procedure) [code = 433307376] [facility] Scheduled Test 1972 00:00:00 CT Colonography (combo) [code = CT Colonography (combo)] [facility] Scheduled Test 1972 00:00:00 Screening for malignant neoplasm of colon (procedure) [code = 810893671] [facility] Scheduled Test 1972 00:00:00 Screening for malignant neoplasm of colon (procedure) [code = 582802466] [facility] Scheduled Test 1972 00:00:00 Screening for malignant neoplasm of colon (procedure) [code = 829701535] [facility] Scheduled Test 1972 00:00:00 Screening for malignant neoplasm of colon (procedure) [code = 843113100] [facility] Scheduled Test 1972 00:00:00 Sigmoidoscopy [code = Sigmoidoscopy] [facility] Scheduled Test 1972 00:00:00 Screening for malignant neoplasm of breast (procedure) [code = 330167689] [facility] Scheduled Test 1972 00:00:00 CT Colonography (combo) [code = CT Colonography (combo)] [facility] Scheduled Test 1972 00:00:00 Screening for malignant neoplasm of colon (procedure) [code = 925926158] [facility] Scheduled Test 1972 00:00:00 Screening for malignant neoplasm of colon (procedure) [code = 060165656] [facility] Scheduled Test 1972 00:00:00 Screening for malignant neoplasm of colon (procedure) [code = 551688718] [facility] Scheduled Test 1972 00:00:00 Screening for malignant neoplasm of colon (procedure) [code = 634586760] [facility] Scheduled Test 1972 00:00:00 Sigmoidoscopy [code = Sigmoidoscopy] [facility] Scheduled Test 1972 00:00:00 Screening for malignant neoplasm of breast (procedure) [code = 024625882] [facility] Scheduled Test 1972 00:00:00 CT Colonography (combo) [code = CT Colonography (combo)] [facility] Scheduled Test 1972 00:00:00 Screening for malignant neoplasm of colon (procedure) [code = 528226463] [facility] Scheduled Test 1972 00:00:00 Screening for malignant neoplasm of colon (procedure) [code = 977350926] [facility] Scheduled Test 1972 00:00:00 Screening for malignant neoplasm of colon (procedure) [code = 399746586] [facility] Scheduled Test 1972 00:00:00 Screening for malignant neoplasm of colon (procedure) [code = 226932654] [facility] Scheduled Test 1972 00:00:00 Sigmoidoscopy [code = Sigmoidoscopy] [facility] Scheduled Test 1972 00:00:00 Screening for malignant neoplasm of breast (procedure) [code = 710255177] [facility] Scheduled Test 1972 00:00:00 CT Colonography (combo) [code = CT Colonography (combo)] [facility] Scheduled Test 1972 00:00:00 Screening for malignant neoplasm of colon (procedure) [code = 682137193] [facility] Scheduled Test 1972 00:00:00 Screening for malignant neoplasm of colon (procedure) [code = 016089579] [facility] Scheduled Test 1972 00:00:00 Screening for malignant neoplasm of colon (procedure) [code = 968204778] [facility] Scheduled Test 1972 00:00:00 Screening for malignant neoplasm of colon (procedure) [code = 441020902] [facility] Scheduled Test 1972 00:00:00 Sigmoidoscopy [code = Sigmoidoscopy] [facility] Scheduled Test 1972 00:00:00 Screening for malignant neoplasm of breast (procedure) [code = 504264923] [facility] Scheduled Test 1972 00:00:00 CT Colonography (combo) [code = CT Colonography (combo)] [facility] Scheduled Test 1972 00:00:00 Screening for malignant neoplasm of colon (procedure) [code = 476745630] [facility] Scheduled Test 1972 00:00:00 Screening for malignant neoplasm of colon (procedure) [code = 330024744] [facility] Scheduled Test 1972 00:00:00 Screening for malignant neoplasm of colon (procedure) [code = 575508207] [facility] Scheduled Test 1972 00:00:00 Screening for malignant neoplasm of colon (procedure) [code = 674925315] [facility] Scheduled Test 1972 00:00:00 Sigmoidoscopy [code = Sigmoidoscopy] [facility] Scheduled Test 1972 00:00:00 Screening for malignant neoplasm of breast (procedure) [code = 925325232] [facility] Scheduled Test 1972 00:00:00 CT Colonography (combo) [code = CT Colonography (combo)] [facility] Scheduled Test 1972 00:00:00 Screening for malignant neoplasm of colon (procedure) [code = 076323067] [facility] Scheduled Test 1972 00:00:00 Screening for malignant neoplasm of colon (procedure) [code = 066167138] [facility] Scheduled Test 1972 00:00:00 Screening for malignant neoplasm of colon (procedure) [code = 188375120] [facility] Scheduled Test 1972 00:00:00 Screening for malignant neoplasm of colon (procedure) [code = 412530934] [facility] Scheduled Test 1972 00:00:00 Sigmoidoscopy [code = Sigmoidoscopy] [facility] Scheduled Test 1972 00:00:00 Screening for malignant neoplasm of breast (procedure) [code = 999719347] [facility] Scheduled Test 1972 00:00:00 CT Colonography (combo) [code = CT Colonography (combo)] [facility] Scheduled Test 1972 00:00:00 Screening for malignant neoplasm of colon (procedure) [code = 931778126] [facility] Scheduled Test 1972 00:00:00 Screening for malignant neoplasm of colon (procedure) [code = 088263698] [facility] Scheduled Test 1972 00:00:00 Screening for malignant neoplasm of colon (procedure) [code = 002630081] [facility] Scheduled Test 1972 00:00:00 Screening for malignant neoplasm of colon (procedure) [code = 732078126] [facility] Scheduled Test 1972 00:00:00 Sigmoidoscopy [code = Sigmoidoscopy] [facility] Scheduled Test 1972 00:00:00 Screening for malignant neoplasm of breast (procedure) [code = 296897278] [facility] Scheduled Test 1972 00:00:00 CT Colonography (combo) [code = CT Colonography (combo)] [facility] Scheduled Test 1972 00:00:00 Screening for malignant neoplasm of colon (procedure) [code = 582181286] [facility] Scheduled Test 1972 00:00:00 Screening for malignant neoplasm of colon (procedure) [code = 481051939] [facility] Scheduled Test 1972 00:00:00 Screening for malignant neoplasm of colon (procedure) [code = 509629267] [facility] Scheduled Test 1972 00:00:00 Screening for malignant neoplasm of colon (procedure) [code = 146578151] [facility] Scheduled Test 1972 00:00:00 Sigmoidoscopy [code = Sigmoidoscopy] [facility] Scheduled Test 1972 00:00:00 Screening for malignant neoplasm of breast (procedure) [code = 591674662] [facility] Scheduled Test 1972 00:00:00 CT Colonography (combo) [code = CT Colonography (combo)] [facility] Scheduled Test 1972 00:00:00 Screening for malignant neoplasm of colon (procedure) [code = 993753558] [facility] Scheduled Test 1972 00:00:00 Screening for malignant neoplasm of colon (procedure) [code = 904029666] [facility] Scheduled Test 1972 00:00:00 Screening for malignant neoplasm of colon (procedure) [code = 119325298] [facility] Scheduled Test 1972 00:00:00 Screening for malignant neoplasm of colon (procedure) [code = 476432643] [facility] Scheduled Test 1972 00:00:00 Sigmoidoscopy [code = Sigmoidoscopy] [facility] Scheduled Test 1972 00:00:00 Screening for malignant neoplasm of breast (procedure) [code = 575355046] [facility] Scheduled Test 1972 00:00:00 CT Colonography (combo) [code = CT Colonography (combo)] [facility] Scheduled Test 1972 00:00:00 Screening for malignant neoplasm of colon (procedure) [code = 526247300] [facility] Scheduled Test 1972 00:00:00 Screening for malignant neoplasm of colon (procedure) [code = 009218209] [facility] Scheduled Test 1972 00:00:00 Screening for malignant neoplasm of colon (procedure) [code = 093169116] [facility] Scheduled Test 1972 00:00:00 Screening for malignant neoplasm of colon (procedure) [code = 903434028] [facility] Scheduled Test 1972 00:00:00 Sigmoidoscopy [code = Sigmoidoscopy] [facility] Scheduled Test 1972 00:00:00 Screening for malignant neoplasm of breast (procedure) [code = 445252777] [facility] Scheduled Test 1972 00:00:00 CT Colonography (combo) [code = CT Colonography (combo)] [facility] Scheduled Test 1972 00:00:00 Screening for malignant neoplasm of colon (procedure) [code = 681012538] [facility] Scheduled Test 1972 00:00:00 Screening for malignant neoplasm of colon (procedure) [code = 360226970] [facility] Scheduled Test 1972 00:00:00 Screening for malignant neoplasm of colon (procedure) [code = 989449018] [facility] Scheduled Test 1972 00:00:00 Screening for malignant neoplasm of colon (procedure) [code = 122423690] [facility] Scheduled Test 1972 00:00:00 Sigmoidoscopy [code = Sigmoidoscopy] [facility] Scheduled Test 1972 00:00:00 Screening for malignant neoplasm of breast (procedure) [code = 608639835] [facility] Scheduled Test 1972 00:00:00 CT Colonography (combo) [code = CT Colonography (combo)] [facility] Scheduled Test 1972 00:00:00 Screening for malignant neoplasm of colon (procedure) [code = 319396283] [facility] Scheduled Test 1972 00:00:00 Screening for malignant neoplasm of colon (procedure) [code = 683021649] [facility] Scheduled Test 1972 00:00:00 Screening for malignant neoplasm of colon (procedure) [code = 123483862] [facility] Scheduled Test 1972 00:00:00 Screening for malignant neoplasm of colon (procedure) [code = 538491944] [facility] Scheduled Test 1972 00:00:00 Sigmoidoscopy [code = Sigmoidoscopy] [facility] Scheduled Test 1972 00:00:00 Screening for malignant neoplasm of breast (procedure) [code = 646469591] [facility] Scheduled Test 1972 00:00:00 CT Colonography (combo) [code = CT Colonography (combo)] [facility] Scheduled Test 1972 00:00:00 Screening for malignant neoplasm of colon (procedure) [code = 013575142] [facility] Scheduled Test 1972 00:00:00 Screening for malignant neoplasm of colon (procedure) [code = 142187903] [facility] Scheduled Test 1972 00:00:00 Screening for malignant neoplasm of colon (procedure) [code = 926964399] [facility] Scheduled Test 1972 00:00:00 Screening for malignant neoplasm of colon (procedure) [code = 977888278] [facility] Scheduled Test 1972 00:00:00 Sigmoidoscopy [code = Sigmoidoscopy] [facility] Scheduled Test 1972 00:00:00 Screening for malignant neoplasm of breast (procedure) [code = 322258921] [facility] Scheduled Test 1972 00:00:00 CT Colonography (combo) [code = CT Colonography (combo)] [facility] Scheduled Test 1972 00:00:00 Screening for malignant neoplasm of colon (procedure) [code = 213693138] [facility] Scheduled Test 1972 00:00:00 Screening for malignant neoplasm of colon (procedure) [code = 506221025] [facility] Scheduled Test 1972 00:00:00 Screening for malignant neoplasm of colon (procedure) [code = 389288896] [facility] Scheduled Test 1972 00:00:00 Screening for malignant neoplasm of colon (procedure) [code = 540401498] [facility] Scheduled Test 1972 00:00:00 Sigmoidoscopy [code = Sigmoidoscopy] [facility] Scheduled Test 1972 00:00:00 Screening for malignant neoplasm of breast (procedure) [code = 438185651] [facility] Scheduled Test 1972 00:00:00 CT Colonography (combo) [code = CT Colonography (combo)] [facility] Scheduled Test 1972 00:00:00 Screening for malignant neoplasm of colon (procedure) [code = 099178834] [facility] Scheduled Test 1972 00:00:00 Screening for malignant neoplasm of colon (procedure) [code = 027696097] [facility] Scheduled Test 1972 00:00:00 Screening for malignant neoplasm of colon (procedure) [code = 993679588] [facility] Scheduled Test 1972 00:00:00 Screening for malignant neoplasm of colon (procedure) [code = 998728049] [facility] Scheduled Test 1972 00:00:00 Sigmoidoscopy [code = Sigmoidoscopy] [facility] Scheduled Test 1972 00:00:00 Screening for malignant neoplasm of breast (procedure) [code = 608748295] [facility] Scheduled Test 1972 00:00:00 CT Colonography (combo) [code = CT Colonography (combo)] [facility] Scheduled Test 1972 00:00:00 Screening for malignant neoplasm of colon (procedure) [code = 041411565] [facility] Scheduled Test 1972 00:00:00 Screening for malignant neoplasm of colon (procedure) [code = 045450546] [facility] Scheduled Test 1972 00:00:00 Screening for malignant neoplasm of colon (procedure) [code = 858278073] [facility] Scheduled Test 1972 00:00:00 Screening for malignant neoplasm of colon (procedure) [code = 319750707] [facility] Scheduled Test 1972 00:00:00 Sigmoidoscopy [code = Sigmoidoscopy] [facility] Goal Plan of Care Not e [code = 57884-7] Goal Plan of Care Not e [code = 99047-7] Goal Plan of Care Not e [code = 16618-8] Goal Plan of Care Not e [code = 72330-0] Goal Plan of Care Not e [code = 69689-7] Goal Plan of Care Not e [code = 77992-9] Goal Plan of Care Not e [code = 86233-8] Goal Plan of Care Not e [code = 54248-2] Goal Plan of Care Not e [code = 11421-9] Goal Plan of Care Not e [code = 89891-1] Goal Plan of Care Not e [code = 34910-9] Goal Plan of Care Not e [code = 63712-6] Goal Plan of Care Not e [code = 25534-5] Goal Plan of Care Not e [code = 30882-5] Goal Plan of Care Not e [code = 93187-0] Goal Plan of Care Not e [code = 69096-3] Goal Plan of Care Not e [code = 15404-4] Goal Plan of Care Not e [code = 14828-8] Goal Plan of Care Not e [code = 64559-5] Goal Plan of Care Not e [code = 68523-4] Goal Plan of Care Not e [code = 88959-8] Goal Plan of Care Not e [code = 02709-4] Goal Plan of Care Not e [code = 91725-2] Goal Plan of Care Not e [code = 37178-9] Goal Plan of Care Not e [code = 63998-3] Goal Plan of Care Not e [code = 67308-3] Goal Plan of Care Not e [code = 14793-9] Goal Plan of Care Not e [code = 69497-0] Goal Plan of Care Not e [code = 70097-1] Goal Plan of Care Not e [code = 39999-0] Goal Plan of Care Not e [code = 67330-6] Goal Plan of Care Not e [code = 94772-3] Goal Plan of Care Not e [code = 41202-7] Goal Plan of Care Not e [code = 12323-3] Goal Plan of Care Not e [code = 94624-8] Encounters Start Date/Time End Date/Time Encounter Type Admission Type Attending [facility] Care Department Encounter ID Source 2023-09-07 10:11:03 Inpatient PANKAJ PARRISH [facility] [id number] [facility] 2023-09-05 10:08:27 Inpatient PANKAJ PARRISH [facility] [id number] [facility] 2023-09-05 10:05:12 Inpatient PANKAJ PARRISH [facility] [id number] [facility] 2023-09-04 04:51:30 Inpatient PANKAJ PARRISH [facility] [id number] [facility] 2023-09-04 04:14:55 Inpatient PANKAJ PARRISH [facility] [id number] [facility] 2023-09-04 03:08:45 Inpatient PANKAJ PARRISH [facility] [id number] [facility] 2023-09-04 02:36:28 [id number] 2023-06-16 09:32:36 Inpatient AYDEE DICKENS [facility] [id number] [facility] 2023-06-16 09:32:09 Inpatient AYDEE DICKENS [facility] [id number] [facility] 2023-06-16 09:31:53 Inpatient AYDEE DICKENS [facility] [id number] [facility] 2023-06-14 07:46:02 Inpatient AYDEE DICKENS [facility] [id number] [facility] 2023-06-14 07:39:22 Inpatient AYDEE DICKENS [facility] [id number] [facility] 2023-06-14 06:38:38 Inpatient AYDEE DICKENS [facility] [id number] [facility] 2023-06-13 13:44:18 Inpatient CARA MURPHY [facility] [id number] [facility] 2023-06-13 11:45:24 Inpatient AYDEE DICKENS [facility] [id number] [facility] 2023-05-08 11:21:00 Outpatient ADAM BRANTLEY [facility] Surgery [id number] [facility] 2023-04-01 14:26:29 Inpatient ER THOMAS LOZOYA [facility] [id number] [facility] 2023-03-31 09:24:52 Inpatient ER MARIAH ALDRIDGE [facility] [id number] [facility] 2021-05-20 18:48:04 Emergency [facility] [id number] [facility] 2021-05-20 12:43:40 Emergency [facility] [id number] [facility] 2024-02-16 10:15:00 2024-02-16 10:15:00 Outpatient MORALES BALL [id number] [facility] 2023-11-26 14:15:00 2023-11-26 14:15:00 Outpatient AARON LEDESMA [id number] [facility] 2023-11-18 00:00:00 2023-11-18 00:00:00 Outpatient EFRA BABCOCK [id number] [facility] 2023-11-15 00:00:00 2023-11-15 00:00:00 Outpatient CYNTHIA MTZ [id number] [facility] 2023-11-15 00:00:00 2023-11-15 00:00:00 Outpatient CYNTHIA MTZ [id number] [facility] 2023-11-15 00:00:00 2023-11-15 00:00:00 Outpatient CYNTHIA MTZ [id number] [facility] 2023-11-12 15:15:00 2023-11-12 15:15:00 Outpatient GUSTAVO DELANEY [id number] [facility] 2023-11-12 00:00:00 2023-11-12 00:00:00 Outpatient CYNTHIA MTZ [id number] [facility] 2023-11-10 09:30:00 2023-11-10 09:30:00 Outpatient MIJARESMYLA PATEL [facility] [id number] [facility] 2023-11-09 00:00:00 2023-11-09 00:00:00 Outpatient ELAINAGUSTAVO CYNTHIA MTZ [id number] [facility] 2023-11-09 00:00:00 2023-11-09 00:00:00 Outpatient MIJARESMYLA PATEL CYNTHIA MTZ [id number] [facility] 2023-11-07 17:51:00 2023-11-07 22:04:00 Emergency ER JUANY GREEN [facility] [id number] [facility] 2023-11-07 17:51:00 2023-11-07 22:04:[address] [facility] [id number] 2023-11-05 00:00:00 2023-11-05 00:00:00 Outpatient TIFFANY MONTANEZ [id number] [facility] 2023-11-03 00:00:00 2023-11-03 00:00:00 Outpatient CYNTHIA MTZ [id number] [facility] 2023-10-29 00:00:00 2023-10-29 00:00:00 Outpatient GUSTAVO DELANEY [id number] [facility] 2023-10-26 00:00:00 2023-10-26 00:00:00 Outpatient EFRA BABCOCK [id number] [facility] 2023-10-22 00:00:00 2023-10-22 00:00:00 Outpatient GUSTAVO DELANEY [id number] [facility] 2023-10-16 11:10:00 2023-10-16 11:10:00 Outpatient SIDDHARTH STANFORD [id number] [facility] 2023-10-15 00:00:00 2023-10-15 00:00:00 Outpatient MD CYNTHIA MARLEY [id number] [facility] 2023-10-15 00:00:00 2023-10-15 00:00:00 Outpatient SHY GUILLEN CYNTHIA [id number] [facility] 2023-10-15 00:00:00 2023-10-15 00:00:00 Outpatient SHY GUILLEN CYNTHIA [id number] [facility] 2023-10-06 10:45:00 2023-10-06 10:45:00 Outpatient BAYSARAI NOBLE CYNTHIA CYNTHIA [id number] [facility] 2023-10-05 11:30:00 2023-10-05 11:30:00 Outpatient PREZAS, GUSTAVO CYNTHIA CYNTHIA [id number] [facility] 2023-10-01 00:00:00 2023-10-01 00:00:00 Outpatient PREZAS, GUSTAVO CYNTHIA MTZ [id number] [facility] 2023-09-30 14:15:00 2023-09-30 14:15:00 Outpatient PREZAS, GUSTAVO CYNTHIA CYNTHIA [id number] [facility] 2023-09-24 00:00:00 2023-09-24 00:00:00 Outpatient PREZAS, GUSTAVO CYNTHIA MTZ [id number] [facility] 2023-09-23 00:00:00 2023-09-23 00:00:00 Outpatient TIFFANY MONTANEZ [id number] [facility] 2023-09-22 00:00:00 2023-09-22 00:00:00 Outpatient PREZAS, GUSTAVO CYNTHIA MTZ [id number] [facility] 2023-09-22 00:00:00 2023-09-22 00:00:00 Outpatient GUILLENSHY PIERCE CYNTHIA MTZ [id number] Cynthia Seybold 2023-09-16 00:00:00 2023-09-16 00:00:00 Outpatient PREZAS, GUSTAVO CYNTHIA MTZ [id number] Cynthia Seybold 2023-09-16 00:00:00 2023-09-16 00:00:00 Outpatient PREZAS, GUSTAVO CYNTHIA MTZ [id number] Cynthia Seybold 2023-09-16 00:00:00 2023-09-16 00:00:00 Outpatient GUSTAVO DELANEY CYNHTIA CYNTHIA [id number] Cynthia [facility] 2023-09-14 00:00:00 2023-09-14 00:00:00 Outpatient SHY GUILLEN CYNTHIA CYNTHIA [id number] Cynthia [facility] 2023-09-14 00:00:00 2023-09-14 00:00:00 Outpatient SHY GUILLEN CYNTHIA CYNTHIA [id number] Cynthia [facility] 2023-09-11 11:00:00 2023-09-11 11:00:00 Outpatient YONATAN LORENZO CYNTHIA MTZ [id number] [facility] 2023-09-09 00:00:00 2023-09-09 00:00:00 Outpatient CYNTHIA MTZ [id number] Cynthia [facility] 2023-09-04 00:14:00 2023-09-08 10:51:00 Hospital Encounter ER London Loyola, Pankaj Fry, Selin Sosa [facility] [id number] [facility] 2023-09-04 00:14:00 2023-09-08 10:51:00 Inpatient ER SELIN FERRER Neurosurger y [id number] [facility] 2023-09-04 00:14:00 2023-09-08 10:51:00 Hospital Encounter London Loyola, Pankaj Fry, Selin Sosa [facility] [id number] [facility] 2023-09-07 18:41:43 2023-09-07 18:41:43 Outpatient NICOLETTE HINSONGEOVANNI SELIN LIPSCOMB [facility] [id number] [facility] 2023-09-03 20:52:00 2023-09-03 23:44:00 Emergency ER JUANY GREEN [facility] [id number] [facility] 2023-09-03 20:52:00 2023-09-03 23:44:[address] [facility] [id number] 2023-09-02 00:00:00 2023-09-02 00:00:00 Outpatient CINDI, TIFFANY MTZ [id number] Cynthia Garcia 2023-09-01 15:30:00 2023-09-01 15:30:00 Outpatient DEMETRIUS TOBAR [id number] Cynthia Garcia 2023-08-19 00:00:00 2023-08-19 00:00:00 Outpatient KETAN CALVILLO [facility] [id number] [facility] 2023-08-13 00:00:00 2023-08-13 00:00:00 Orders Only Ketan Scruggs [facility] [id number] [facility] 2023-08-13 00:00:00 2023-08-13 00:00:00 Orders Only Ketan Scruggs [facility] [id number] [facility] 2023-08-12 13:49:00 2023-08-12 16:12:00 Emergency X CRISTELA [facility] ERT [id number] [facility] 2023-08-12 13:49:00 2023-08-12 16:12:00 Emergency Brian Bryan [facility] 1.2.840.114 350.1.13.10 4.2.7.2.686 [id number] [facility] 2023-06-13 03:43:00 2023-06-16 19:45:00 Hospital Encounter ER Cara Burgess Sahar [facility] [id number] [facility] 2023-06-13 03:43:00 2023-06-16 19:45:00 Inpatient ER AYDEE GO [facility] Internal Med [id number] [facility] 2023-06-13 03:43:00 2023-06-16 19:45:00 Hospital Encounter Cara Burgess Sahar [facility] [id number] [facility] 2023-06-15 00:00:00 2023-06-15 00:00:00 Orders Only System, Provider Not In [facility] [id number] [facility] 2023-06-15 00:00:00 2023-06-15 00:00:00 Orders Only System, Provider Not In [facility] [id number] [facility] 2023-06-13 16:30:06 2023-06-13 16:30:06 Outpatient AYDEE DICKENS [facility] [id number] [facility] 2023-06-13 00:00:00 2023-06-13 00:00:00 Orders Only [facility] [id number] [facility] 2023-06-13 00:00:00 2023-06-13 00:00:00 Travel [facility] [id number] [facility] 2023-06-13 00:00:00 2023-06-13 00:00:00 Orders Only [facility] [id number] [facility] 2023-06-13 00:00:00 2023-06-13 00:00:00 Travel [facility] [id number] [facility] 2023-06-12 00:00:00 2023-06-12 00:00:00 Telephone Dallas Gomez [facility] [id number] [facility] 2023-06-12 00:00:00 2023-06-12 00:00:00 Telephone Dallas Gomez [facility] [id number] [facility] 2023-05-28 06:45:00 2023-06-04 17:36:00 Hospital Encounter Adam Brantley [facility] [id number] [facility] 2023-05-28 06:45:00 2023-06-04 17:36:00 Inpatient ADAM BRANTLEY [facility] Surgery [id number] [facility] 2023-05-28 06:45:00 2023-06-04 17:36:00 Hospital Encounter Adam Garcia [facility] [id number] [facility] 2023-06-01 09:10:00 2023-06-01 13:00:00 Anesthesia Event Harry Newsome Mujtaba Ahmad [facility] [id number] [facility] 2023-06-01 09:10:00 2023-06-01 13:00:00 Anesthesia Event Harry Newsome Mujtaba Ahmad [facility] [id number] [facility] 2023-06-01 09:00:00 2023-06-01 11:30:00 Surgery Adam Garcia [facility] [id number] [facility] 2023-06-01 09:00:00 2023-06-01 11:30:00 Surgery Adam Garcia [facility] [id number] [facility] 2023-06-01 09:47:57 2023-06-01 09:47:57 Outpatient ADAM BRANTLEY [facility] [id number] [facility] 2023-06-01 09:40:34 2023-06-01 09:40:34 Outpatient ADAM BRANTLEY SLE [id number] [facility] 2023-05-31 09:25:55 2023-05-31 23:59:00 Inpatient ADAM BRANTLEY [facility] [id number] [facility] 2023-05-31 09:00:00 2023-05-31 23:59:00 Hospital Encounter Adam Garcia [facility] [id number] [facility] 2023-05-31 09:00:00 2023-05-31 23:59:00 Hospital Encounter Adam Garcia [facility] [id number] [facility] 2023-05-28 18:15:29 2023-05-28 18:15:29 Outpatient ADAM BRANTLEY SLE [id number] [facility] 2023-05-28 08:30:00 2023-05-28 11:54:00 Anesthesia Event Yue Bui [facility] [id number] [facility] 2023-05-28 08:30:00 2023-05-28 11:54:00 Anesthesia Event Yue Bui [facility] [id number] [facility] 2023-05-28 11:41:14 2023-05-28 11:41:14 Outpatient ADAM BRANTLEY [facility] [id number] [facility] 2023-05-28 08:30:00 2023-05-28 11:00:00 Surgery Adam Garcia [facility] [id number] [facility] 2023-05-28 08:30:00 2023-05-28 11:00:00 Surgery Adam Garcia [facility] [id number] [facility] 2023-05-28 10:00:47 2023-05-28 10:00:47 Outpatient ADAM BRANTLEY [facility] [id number] [facility] 2023-05-28 00:00:00 2023-05-28 00:00:00 Travel [facility] [id number] [facility] 2023-05-28 00:00:00 2023-05-28 00:00:00 Travel [facility] [id number] [facility] 2023-05-26 09:00:00 2023-05-26 09:00:00 Hospital Encounter Adam Garcia [facility] [id number] [facility] 2023-05-26 09:00:00 2023-05-26 09:00:00 Hospital Encounter Adam Garcia [facility] [id number] [facility] 2023-05-26 00:00:00 2023-05-26 00:00:00 Outpatient ADAM BRANTLEY [facility] [id number] [facility] 2023-05-26 00:00:00 2023-05-26 00:00:00 Outpatient NICOLETTE LIPSCOMB [facility] [id number] [facility] 2023-05-26 00:00:00 2023-05-26 00:00:00 Travel [facility] [id number] [facility] 2023-05-26 00:00:00 2023-05-26 00:00:00 Travel [facility] [id number] [facility] 2023-05-13 11:43:03 2023-05-13 11:43:03 Outpatient [facility] 1025 Adria Martínez 2023-05-12 00:00:00 2023-05-12 00:00:00 Orders Only Adam Garcia [facility] [id number] [facility] 2023-05-12 00:00:00 2023-05-12 00:00:00 Orders Only Adam Garcia [facility] [id number] [facility] 2023-05-08 14:11:21 2023-05-08 14:11:21 Outpatient [facility] 1020 Adria Martínez 2023-03-29 19:25:00 2023-04-02 20:48:00 Hospital Encounter ER HoangpipoConnie, Mariah Lozoya, Mrinalini Kellie [facility] [id number] [facility] 2023-03-29 19:25:00 2023-04-02 20:48:00 Inpatient ER THOMAS LOZOYA [facility] [id number] [facility] 2023-03-29 19:25:00 2023-04-02 20:48:00 Hospital Encounter HoangpipoConnie, Mariah Lozoya, Mrinalini Kellie [facility] [id number] [facility] 2023-03-31 08:32:56 2023-03-31 00:00:00 Inpatient ER MARIAH ALDRIDGE [facility] [id number] [facility] 2023-03-30 10:24:12 2023-03-30 23:59:00 Outpatient ER CONNIE DAVEY [facility] [id number] [facility] 2023-03-30 09:40:00 2023-03-30 23:59:00 Hospital Encounter Connie Davey [facility] [id number] [facility] 2023-03-30 09:40:00 2023-03-30 23:59:00 Hospital Encounter Connie Davey [facility] [id number] [facility] 2023-03-30 13:46:20 2023-03-30 13:46:20 Outpatient ER MARIAH ALDRIDGE [facility] [id number] [facility] 2023-03-30 13:46:14 2023-03-30 13:46:14 Outpatient ER MARIAH ALDRIDGE [facility] [id number] [facility] 2023-03-30 10:24:04 2023-03-30 10:24:04 Outpatient ER CONNIE DAVEY [facility] [id number] [facility] 2023-03-30 00:00:00 2023-03-30 00:00:00 Orders Only [facility] [id number] [facility] 2023-03-30 00:00:00 2023-03-30 00:00:00 Travel [facility] [id number] [facility] 2023-03-30 00:00:00 2023-03-30 00:00:00 Orders Only [facility] [id number] [facility] 2023-03-30 00:00:00 2023-03-30 00:00:00 Travel [facility] [id number] [facility] 2022-12-11 08:56:00 2022-12-11 15:29:00 Emergency X Alfonso ALVARADO [facility] ERT [id number] [facility] 2022-12-11 08:56:00 2022-12-11 15:29:00 Emergency Alfonso Alvarado [facility] 1.2.840.114 350.1.13.10 4.2.7.2.686 [id number] [facility] 2022-11-17 17:25:00 2022-11-18 01:19:00 Emergency X RITCHIE WARREN [facility] ERT [id number] [facility] 2022-11-17 17:25:00 2022-11-18 01:19:00 Emergency Ritchie Warren [facility] 1.2.840.114 350.1.13.10 4.2.7.2.686 [id number] [facility] 2022-08-28 00:00:00 2022-08-28 00:00:00 Patient Outreach Shy Beckman 1.2.840.114 350.1.13.10 4.2.7.2.686 [id number] [facility] 2022-08-20 00:00:00 2022-08-20 00:00:00 Patient Outreach Shy Beckman 1.2.840.114 350.1.13.10 4.2.7.2.686 [id number] [facility] 2022-08-02 17:30:00 2022-08-03 14:29:00 Hospital Encounter ER Halima Mendoza Kinjal M Ibe, Chimkama Ngozi Cynthia [facility] [id number] [facility] 2022-08-02 17:30:00 2022-08-03 14:29:00 Outpatient ER PARRISH WHEATLEY [facility] Neurology [id number] SLE 2022-08-03 00:00:00 2022-08-03 00:00:00 Orders Only [facility] [id number] [facility] 2022-08-02 00:00:00 2022-08-02 00:00:00 Travel [facility] [id number] [facility] 2022-07-31 11:42:00 2022-08-01 21:48:00 Inpatient X SERGIOBENJAMÍN LORENZA [facility] SHEA [id number] [facility] 2022-07-31 11:42:00 2022-08-01 21:48:00 Hospital Encounter Michele RondonLorenza Porter [facility] 1.2.840.114 350.1.13.10 4.2.7.2.686 [id number] [facility] 2022-08-01 00:00:00 2022-08-01 00:00:00 Transition of Care Maria Teresa NicoleBubba RODRIGO BENAVIDES 1.2.840.114 350.1.13.10 4.2.7.2.686 [id number] [facility] 2022-07-28 14:41:38 2022-07-28 14:41:38 Outpatient [facility] 0109 Adria Martínez 2022-07-28 00:00:00 2022-07-28 00:00:00 Outpatient Visit [id number] 2022-07-24 13:24:40 2022-07-24 13:24:40 Outpatient [facility] 5 Adria Martínez 2022-05-23 14:51:01 2022-05-23 14:51:01 Outpatient [facility] 1104 Adria Martínez 2022-05-23 00:00:00 2022-05-23 00:00:00 Outpatient Visit [id number] 2022-05-04 20:22:00 2022-05-08 14:44:00 Outpatient X HCANTEL BOJORQUEZ PABLO [facility] [id number] [facility] 2022-05-04 20:22:00 2022-05-08 14:44:00 [facility] 1.2840.114 350.1.13.10 4.2.7.2.686 [id number] [facility] 2022-04-13 13:06:00 2022-04-15 15:00:00 Inpatient X CONRAD [facility] BERNARDINO [id number] [facility] 2022-04-13 13:06:00 2022-04-15 15:00:00 Hospital Encounter Sapna Vargas Muhammad Zeeshan [facility] 1.2840.114 350.1.13.10 4.2.7.2.686 [id number] [facility] 2022-02-19 10:20:00 2022-02-19 10:30:00 Imm/Inj Visit [facility] [place] Jose Santiago [facility] 1.84.114 350.1.13.10 4.2.7.2.686 [id number] [facility] 2022-02-19 10:20:00 2022-02-19 10:20:00 Outpatient R JOSE PAK [facility] [id number] [facility] 2021-11-23 15:07:00 2021-11-23 17:03:00 Emergency X NICHELLE VIRK [facility] E[facility] [id number] [facility] 2021-11-23 15:07:00 2021-11-23 17:03:00 Emergency Sav Rondon Folusho F [facility] 1.840.114 350.1.13.10 4.2.7.2.686 [id number] [facility] 2021-11-21 09:40:00 2021-11-21 09:40:00 Outpatient R [facility] [id number] [facility] 2021-05-24 09:30:00 2021-05-24 09:30:00 Outpatient JOSE MENDOZA [facility] [id number] [facility] 2021-05-24 08:47:51 2021-05-24 08:57:51 Imm/Inj Visit Vaccine, [place] Dangelo Pak [facility] 1.2.840.114 350.1.13.10 4.2.7.2.686 [id number] [facility] 2021-05-03 09:40:00 2021-05-03 09:59:35 Outpatient JOSE MENDOZA [facility] [id number] [facility] 2021-05-03 09:17:43 2021-05-03 09:59:35 Imm/Inj Visit Vaccine, [place] Collette Otoniel [facility] 1.2.840.114 350.1.13.10 4.2.7.2.686 [id number] [facility] 2021-04-16 00:00:00 2021-04-16 00:00:00 Orders Only Doctor Unassigned, Omar [facility] 1.2.840.114 350.1.13.10 4.2.7.2.686 [id number] [facility] 2021-03-17 00:00:00 2021-03-17 00:00:00 Telephone Miky Nava [facility] 1.2.840.114 350.1.13.10 4.2.7.2.686 [id number] [facility] 2021-03-16 20:08:00 2021-03-16 23:24:00 Emergency Fabrice Chakraborty [facility] 1.2.840.114 350.1.13.10 4.2.7.2.686 [id number] [facility] 2021-03-14 18:59:34 2021-03-14 20:19:13 Urgent Care Lydia Desouza Unknown, Attending [facility] 1.2.840.114 350.1.13.10 4.2.7.2.686 [id number] [facility] 2021-03-14 19:00:00 2021-03-14 19:00:00 Outpatient R UNKNOWN, ATTENDING [facility] [id number] [facility] 2021-02-19 10:49:00 2021-02-19 14:48:00 Emergency Anali Monroy S [facility] 1.2.840.114 350.1.13.10 4.2.7.2.686 [id number] [facility] 2019-03-09 00:00:00 2019-03-09 00:00:[address] [facility] 1.2.840.114 350.1.13.10 4.2.7.2.686 [id number] 2019-03-09 00:00:00 2019-03-09 00:00:[address] [facility] 1.2.840.114 350.1.13.10 4.2.7.2.686 [id number] [facility] Results Test Description Test Time Test Comments Results Result Co mments Source BLOOD [id number] 07:00:10* Test Item Value Reference Range Interpretation Comme nts CULTURE (BEAKER) (test code = 1095) No growth in 5 days XR KNEE 3 VIEWS [id number] 09:27:00 [facility] : 1970 Sex: FXR KNEE 3 VIEWS LEFT CLINICAL INDICATION: S/p fall COMPARISON: NoneFINDINGS: 3views of the left knee.There is no fracture or malalignment. The femorotibial andfemoropatellar joint spaces are intact.No joint fluid is demonstrated.Surrounding soft tissues are unremarkable. Scattered atheroscleroticvascular calcifications.IMPRESSION: No acute fracture or malalignment of the knee Electronically Signed By: Maxim Sultana09/08/2023 09:29 CDTWorkstation Name: [id number] 08:53:50* Test Item Value Reference Range Interpretation Comme nts POC-Glucose Meter (test code = 1538) 101 mg/dL 70-110 : TESTED AT [address], [address]: Machine Tool Technology Instructor/Seam Sewer ID = [id number] for Umeh, Akumbu Lab Interpretation (test code = 21004-4) [facility] [id number] 08:53:50* Test Item Value Reference Range Interpretation Comme nts POC-Glucose Meter (test code = 1538) 101 mg/dL 70-110 : TESTED AT [address], [address]: [employer] Tool Technology Instructor/Seam Sewer ID = [id number] for Umeh, Akumbu Lab Interpretation (test code = 78101-1) [facility] [id number] 08:53:50* Test Item Value Reference Range Interpretation Comme nts POC-Glucose Meter (test code = 1538) 101 mg/dL 70-110 : TESTED AT [address], [address]: Machine Tool Technology Instructor/Seam Sewer ID = [id number] for Umeh, Akumbu Lab Interpretation (test code = 96145-2) Normal [facility] [id number] 08:53:50* Test Item Value Reference Range Interpretation Comme nts POC-Glucose Meter (test code = 1538) 101 mg/dL 70-110 : TESTED AT [address], [address]: Machine Tool Technology Instructor/Seam Sewer ID = [id number] for Umeh, [place]umbu Lab Interpretation (test code = 07989-2) [facility] [id number] 08:53:50* Test Item Value Reference Range Interpretation Comme nts POC-Glucose Meter (test code = 1538) 101 mg/dL 70-110 : TESTED AT [address], [address]: Machine [employer] Technology Instructor/Seam Sewer ID = [id number] for Umeh, [place]umbu Lab Interpretation (test code = 37714-9) [facility] [id number] 08:53:50* Test Item Value Reference Range Interpretation Comme nts POC-Glucose Meter (test code = 1538) 101 mg/dL 70-110 : TESTED AT [address], [address]: Machine Tool Technology Instructor/Seam Sewer ID = [id number] for Umeh, [place]umbu Lab Interpretation (test code = 75461-0) [facility] [id number] 08:53:50* Test Item Value Reference Range Interpretation Comme nts POC-Glucose Meter (test code = 1538) 101 mg/dL 70-110 : TESTED AT [address], [address]: Machine Tool Technology Instructor/Seam Sewer ID = [id number] for Umeh, Akumbu Lab Interpretation (test code = 93984-8) [facility] [id number] 08:53:50* Test Item Value Reference Range Interpretation Comme nts POC-Glucose Meter (test code = 1538) 101 mg/dL 70-110 : TESTED AT [address], [address]: Machine Tool Technology Instructor/Seam Sewer ID = [id number] for Umeh, Akumbu Lab Interpretation (test code = 27416-9) [facility] [id number] 08:53:50* Test Item Value Reference Range Interpretation Comme nts POC-Glucose Meter (test code = 1538) 101 mg/dL 70-110 : TESTED AT [address], [address]: Machine Tool Technology Instructor/Seam Sewer ID = [id number] for Umeh, [place]umbu Lab Interpretation (test code = 47831-8) [facility] [id number] 08:53:50* Test Item Value Reference Range Interpretation Comme nts POC-Glucose Meter (test code = 1538) 101 mg/dL 70-110 : TESTED AT [address], [address]: [employer] Technology Instructor/Seam Sewer ID = [id number] for Umeh, Akumbu Lab Interpretation (test code = 26400-0) [facility] [id number] 08:53:50* Test Item Value Reference Range Interpretation Comme nts POC-Glucose Meter (test code = 1538) 101 mg/dL 70-110 : TESTED AT [address], [address]: Machine Tool Technology Instructor/Seam Sewer ID = [id number] for Umeh, Akumbu Lab Interpretation (test code = 55946-2) [facility] [id number] 08:53:50* Test Item Value Reference Range Interpretation Comme nts POC-Glucose Meter (test code = 1538) 101 mg/dL 70-110 : TESTED AT [address], [address]: Machine [employer] Technology Instructor/Seam Sewer ID = [id number] for Umeh, Akumbu Lab Interpretation (test code = 32342-5) [facility] [id number] 08:53:50* Test Item Value Reference Range Interpretation Comme nts POC-Glucose Meter (test code = 1538) 101 mg/dL 70-110 : TESTED AT [address], [address]: Machine Tool Technology Instructor/Seam Sewer ID = [id number] for Umeh, Akumbu Lab Interpretation (test code = 60255-9) [facility] [id number] 08:53:50* Test Item Value Reference Range Interpretation Comme nts POC-Glucose Meter (test code = 1538) 101 mg/dL 70-110 : TESTED AT [address], [address]: [employer] Instructor/Seam Sewer ID = [id number] for Umeh, Akumbu Lab Interpretation (test code = 62028-3) [facility] [id number] 08:53:50* Test Item Value Reference Range Interpretation Comme nts POC-Glucose Meter (test code = 1538) 101 mg/dL 70-110 : TESTED AT [address], [address]: [employer] Instructor/Seam Sewer ID = [id number] for Umeh, Akumbu Lab Interpretation (test code = 94152-9) [facility] [id number] 08:53:50* Test Item Value Reference Range Interpretation Comme nts POC-Glucose Meter (test code = 1538) 101 mg/dL 70-110 : TESTED AT [address], [address]: [employer] Instructor/Seam Sewer ID = [id number] for Umeh, Akumbu Lab Interpretation (test code = 10021-4) [facility] [id number] 08:53:50* Test Item Value Reference Range Interpretation Comme nts POC-Glucose Meter (test code = 1538) 101 mg/dL 70-110 : TESTED AT [address], [address]: [employer] Instructor/Seam Sewer ID = [id number] for Umeh, Akumbu Lab Interpretation (test code = 12729-2) [facility] [id number] 08:53:50* Test Item Value Reference Range Interpretation Comme nts POC-Glucose Meter (test code = 1538) 101 mg/dL 70-110 : TESTED AT [address], [address]: [employer] Instructor/Seam Sewer ID = [id number] for Umeh, Akumbu Lab Interpretation (test code = 64383-8) [facility] [id number] 08:53:50* Test Item Value Reference Range Interpretation Comme nts POC-Glucose Meter (test code = 1538) 101 mg/dL 70-110 : TESTED AT [address], [address]: Machine Tool Technology Instructor/Seam Sewer ID = [id number] for Umeh, Akumbu Lab Interpretation (test code = 19536-2) [facility] [id number] 08:53:50* Test Item Value Reference Range Interpretation Comme nts POC-Glucose Meter (test code = 1538) 101 mg/dL 70-110 : TESTED AT [facility] [address] [facility], [address]: Machine Tool Technology Instructor/Seam Sewer ID = [id number] for Umeh, Akumbu Lab Interpretation (test code = 86027-1) [facility] [id number] 08:53:50* Test Item Value Reference Range Interpretation Comme nts POC-Glucose Meter (test code = 1538) 101 mg/dL 70-110 : TESTED AT [place] [id number] [facility], [address]: Machine Tool Technology Instructor/Seam Sewer ID = [id number] for Umeh, Akumbu Lab Interpretation (test code = 49431-1) [facility] [id number] 08:53:50* Test Item Value Reference Range Interpretation Comme nts POC-GLUCOSE METER (BEAKER) (test code = 1538) 101 mg/dL 70-110 : TESTED AT [place] [id number] [facility], [address]: Machine Tool Technology Instructor/Seam Sewer ID = [id number] for Umeh, Larryumbu BASIC METABOLIC [id number] 05:40:45* Test Item Value Reference Range Interpretation [...] GFR is not applicable for dialysis patients Machine Tool Technology Instructor ID - [id number] 05:40:45* Test Item Value Reference Range Interpretation Comme nts MAGNESIUM (BEAKER) (test cod e = 627) 2.1 mg/dL 1.6-2.6 Machine Tool Technology Instructor ID - [id number] 05:40:45* Test Item Value Reference Range Interpretation Comme nts PHOSPHORUS (BEAKER) (test co de = 604) 5.0 mg/dL 2.3-4.7 H Machine Tool Technology Instructor ID - ADMINCBC W/PLT COUNT & AUTO [id number] 04:49:23* Test Item Value Reference Range Interpretation [...] code = 2801) 0.40 % 0.00-1.00 POCT-GLUCOSE [id number] 21:40:23* Test Item Value Reference Range Interpretation Comme nts POC-GLUCOSE METER (BEAKER) (test code = 1538) 144 mg/dL 70-110 H : TESTED AT [facility] [address] [facility] [place], [address]: Machine Tool Technology Instructor/Seam Sewer ID = [id number] for Diana Baeza [id number] 04:05:54* Test Item Value Reference Range Interpretation Comme nts MAGNESIUM (BEAKER) (test code = 627) 2.0 mg/dL 1.6-2.6 Specimen sligh tly hemolyzed Machine Tool Technology Instructor ID - MADELINE [id number] 04:05:54* Test Item Value Reference Range Interpretation Comme nts PHOSPHORUS (BEAKER) (test code = 604) 4.5 mg/dL 2.3-4.7 Specimen sligh tly hemolyzed Machine Tool Technology Instructor ID - MADELINE WBASIC METABOLIC [id number] 04:05:54* Test Item Value Reference Range Interpretation [...] GFR is not applicable for dialysis patients Machine Tool Technology Instructor ID - MADELINE WCBC W/PLT COUNT & AUTO [id number] 03:40:48* Test Item Value Reference Range Interpretation [...] code = 2801) 0.30 % 0.00-1.00 POCT-GLUCOSE [id number] 21:28:35* Test Item Value Reference Range Interpretation Comme nts POC-GLUCOSE METER (BEAKER) (test code = 1538) 127 mg/dL 70-110 H : TESTED AT [place] [id number] [facility], [address]: Machine Tool Technology Instructor/Seam Sewer ID = [id number] for Rosa Morinbubba POCT-GLUCOSE [id number] 18:49:21* Test Item Value Reference Range Interpretation Comme nts POC-GLUCOSE METER (BEAKER) (test code = 1538) 122 mg/dL 70-110 H : TESTED AT [place] [id number] [facility], [address]: Machine Tool Technology Instructor/Seam Sewer ID = [id number] for Tyrell Lauren POCT-GLUCOSE [id number] 13:27:27* Test Item Value Reference Range Interpretation Comme nts POC-GLUCOSE METER (BEAKER) (test code = 1538) 130 mg/dL 70-110 H : TESTED AT [facility] [address] [facility], [address]: Machine Tool Technology Instructor/Seam Sewer ID = [id number] for Lauren Santillan [id number] 09:09:14* Test Item Value Reference Range Interpretation Comme nts MAGNESIUM (BEAKER) (test cod e = 627) 2.2 mg/dL 1.6-2.6 [id number] 09:09:14* Test Item Value Reference Range Interpretation Comme nts PHOSPHORUS (BEAKER) (test co de = 604) 4.8 mg/dL 2.3-4.7 H BASIC METABOLIC [id number] 09:09:14* Test Item Value Reference Range Interpretation [...] is not applicable for dialysis patients POCT-GLUCOSE [id number] 08:33:30* Test Item Value Reference Range Interpretation Comme nts POC-GLUCOSE METER (BEAKER) (test code = 1538) 132 mg/dL 70-110 H : TESTED AT [facility] [address] [facility], [address]: Machine Tool Technology Instructor/Seam Sewer ID = [id number] for Lauren Santillan CBC W/PLT COUNT & AUTO [id number] 05:47:59* Test Item Value Reference Range Interpretation [...] 0.09 K/ L 0.04-0.36 BASOPHILS ABSOLUTE COUNT (LINNEA REEVESER) (test code = 417) 0.04 K/ L 0.01-0.08 IMMATURE GRANULOCYTES-RELATI VE PERCENT (LATOYA) (test code = 2801) 0.40 % 0.00-1.00 POCT-GLUCOSE [id number] 21:35:37* Test Item Value Reference Range Interpretation Comme nts POC-GLUCOSE METER (LATOYA) (test code = 1538) 129 mg/dL 70-110 H : TESTED AT [facility] [address] [facility], [address]: Machine Tool Technology Instructor/Seam Sewer ID = [id number] for Ryan Morin MR BRAIN WITH & WITHOUT IV [id number] 15:49:[facility] : 1970 Sex: FMR [...] Signed By: Zeinab Dempsey09/05/2023 15:53 CDTWorkstation Name: [id number] METER 2023-09-05 08:34:25* Test Item Value Reference Range Interpretation Comme nts POC-GLUCOSE METER (BEAKER) (test code = 1538) 115 mg/dL 70-110 H : TESTED AT [facility] [address] [facility], [address]: Machine Tool Technology Instructor/Seam Sewer ID = [id number] for DOMINGA AMADOR BASIC METABOLIC [id number] 06:06:56* Test Item Value Reference Range Interpretation [...] GFR is not applicable for dialysis patients Machine Tool Technology Instructor ID - [id number] 06:06:56* Test Item Value Reference Range Interpretation Comme nts MAGNESIUM (BEAKER) (test cod e = 627) 2.2 mg/dL 1.6-2.6 Machine Tool Technology Instructor ID - [id number] 06:06:56* Test Item Value Reference Range Interpretation Comme nts PHOSPHORUS (BEAKER) (test co de = 604) 3.8 mg/dL 2.3-4.7 Machine Tool Technology Instructor ID - ADMINCBC W/PLT COUNT & AUTO [id number] 05:29:32* Test Item Value Reference Range Interpretation [...] code = 2801) 0.50 % 0.00-1.00 POCT-GLUCOSE [id number] 04:55:18* Test Item Value Reference Range Interpretation Comme nts POC-GLUCOSE METER (BEAKER) (test code = 1538) 99 mg/dL 70-110 : TESTED AT [facility] [address] [facility], [address]: Machine Tool Technology Instructor/Seam Sewer ID = [id number] for Ryan Morin POCT-GLUCOSE [id number] 21:49:23* Test Item Value Reference Range Interpretation Comme nts POC-GLUCOSE METER (BEAKER) (test code = 1538) 124 mg/dL 70-110 H : TESTED AT [place] [id number] [facility], [address]: Machine Tool Technology Instructor/Seam Sewer ID = [id number] for Ryan Morin POCT-GLUCOSE [id number] 15:55:53* Test Item Value Reference Range Interpretation Comme nts POC-GLUCOSE METER (BEAKER) (test code = 1538) 126 mg/dL 70-110 H : TESTED AT [place] [id number] [facility], [address]: Machine Tool Technology Instructor/Seam Sewer ID = [id number] for Tramaine Daniels [id number] 12:37:56* Test Item Value Reference Range Interpretation Comme nts PROCALCITONIN (BEAKER) (test code = 3036) < ng/mL <0.05 SEPSIS RISK (ng/mL)Low: 0.05-0.50Intermediate: 0.51-2.00High: >=2.01SARS- CoV2/Influenza/RSV [id number] 12:18:09* Test Item Value Reference Range Interpretation Comments SARS-COV2/RT-PCR (test code = 31944-7) Negative Negative The SARS-CoV-2 target nucleic acids [...] provider. Influenza A RT-PCR (test code = 41967-4) Negative Negative The Flu A target nucleic acids are not detected in this specimen. Influenza B RT-PCR (test code = 07419-1) Negative Negative The Flu B target nucleic acids are not detected in this specimen. RSV by RT-PCR (test code = 60150-3) Negative Negative The RSV target nucleic acids [...] the Act. Fact Sheet for Healthcare Providers:https://w [employer]/Docu ments/Xpert%20Xpres s%20SARS%20CoV-2/Fa ct%20Sheets/302-390 2%88CVXS-XBI-6%20HE ALTHCARE%20PROVIDER S%20FACT%20SHEET.pd f Fact Sheet for Healthcare Patients:https://ww [employer]/Docum ents/Xpert%20Xpress %20SARS%20Cov-2/Fac t%20Sheets/302-3801 %98QILW-ARH-4%20PAT IENT%20FACT%20SHEET .pdf Lab Interpretation (test code = 01427-4) [facility] [id number] 12:18:09* Test Item Value Reference Range Interpretation Comments SARS-COV2/RT-PCR (test code = 05753-2) Negative Negative The SARS-CoV-2 target nucleic acids [...] provider. Influenza A RT-PCR (test code = 71446-2) Negative Negative The Flu A target nucleic acids are not detected in this specimen. Influenza B RT-PCR (test code = 25506-3) Negative Negative The Flu B target nucleic acids are not detected in this specimen. RSV by RT-PCR (test code = 26026-9) Negative Negative The RSV target nucleic acids [...] SARS-CoV-2/Flu/RSV by their healthcare provider. Results from [facility] Xpert Xpress SARS-CoV-2/Flu/RSV test should be [...] the Act. Fact Sheet for Healthcare Providers:https://w [employer]/Docu ments/Xpert%20Xpres s%20SARS%20CoV-2/Fa ct%20Sheets/302-390 2%41NDJO-KXH-4%20HE ALTHCARE%20PROVIDER S%20FACT%20SHEET.pd f Fact Sheet for Healthcare Patients:https://ww [employer]/Docum ents/Xpert%20Xpress %20SARS%20Cov-2/Fac t%20Sheets/302-3801 %44FEKA-WZD-4%20PAT IENT%20FACT%20SHEET .pdf Lab Interpretation (test code = 22098-3) [facility] [id number] 12:18:09* Test Item Value Reference Range Interpretation Comments SARS-COV2/RT-PCR (test code = 77224-9) Negative Negative The SARS-CoV-2 target nucleic acids [...] provider. Influenza A RT-PCR (test code = 29370-7) Negative Negative The Flu A target nucleic acids are not detected in this specimen. Influenza B RT-PCR (test code = 65879-8) Negative Negative The Flu B target nucleic acids are not detected in this specimen. RSV by RT-PCR (test code = 23327-8) Negative Negative The RSV target nucleic acids [...] the Act. Fact Sheet for Healthcare Providers:https://w [employer]/Docu ments/Xpert%20Xpres s%20SARS%20CoV-2/Fa ct%20Sheets/302-390 2%81MZGA-HPP-6%20HE ALTHCARE%20PROVIDER S%20FACT%20SHEET.pd f Fact Sheet for Healthcare Patients:https://[employer]/Docum ents/Xpert%20Xpress %20SARS%20Cov-2/Fac t%20Sheets/302-3801 %80ZZYK-MYQ-4%20PAT IENT%20FACT%20SHEET .pdf Lab Interpretation (test code = 71191-5) [facility] [id number] 12:18:09* Test Item Value Reference Range Interpretation Comments SARS-COV2/RT-PCR (test code = 63841-5) Negative Negative The SARS-CoV-2 target nucleic acids [...] provider. Influenza A RT-PCR (test code = 70596-0) Negative Negative The Flu A target nucleic acids are not detected in this specimen. Influenza B RT-PCR (test code = 38685-8) Negative Negative The Flu B target nucleic acids are not detected in this specimen. RSV by RT-PCR (test code = 49728-1) Negative Negative The RSV target nucleic acids [...] the Act. Fact Sheet for Healthcare Providers:https://w [place]/Docu ments/Xpert%20Xpres s%20SARS%20CoV-2/Fa ct%20Sheets/302-390 2%90BPGT-KVN-7%20HE ALTHCARE%20PROVIDER S%20FACT%20SHEET.pd f Fact Sheet for Healthcare Patients:https://maria elena [employer]/Docum ents/Xpert%20Xpress %20SARS%20Cov-2/Fac t%20Sheets/302-3801 %14LSPZ-RZP-7%20PAT IENT%20FACT%20SHEET .pdf Lab Interpretation (test code = 96229-9) [facility] [id number] 12:18:09* Test Item Value Reference Range Interpretation Comments SARS-COV2/RT-PCR (test code = 58855-3) Negative Negative The SARS-CoV-2 target nucleic acids [...] provider. Influenza A RT-PCR (test code = 05998-9) Negative Negative The Flu A target nucleic acids are not detected in this specimen. Influenza B RT-PCR (test code = 81283-3) Negative Negative The Flu B target nucleic acids are not detected in this specimen. RSV by RT-PCR (test code = 69391-9) Negative Negative The RSV target nucleic acids [...] the Act. Fact Sheet for Healthcare Providers:https://w [employer]/Docu ments/Xpert%20Xpres s%20SARS%20CoV-2/Fa ct%20Sheets/302-390 2%53NGLV-ICE-8%20HE ALTHCARE%20PROVIDER S%20FACT%20SHEET.pd f Fact Sheet for Healthcare Patients:https://[employer]/Docum ents/Xpert%20Xpress %20SARS%20Cov-2/Fac t%20Sheets/302-3801 %76OYFS-PSL-6%20PAT IENT%20FACT%20SHEET .pdf Lab Interpretation (test code = 71915-4) [facility] [id number] 12:18:09* Test Item Value Reference Range Interpretation Comments SARS-COV2/RT-PCR (test code = 18819-0) Negative Negative The SARS-CoV-2 target nucleic acids [...] provider. Influenza A RT-PCR (test code = 58386-7) Negative Negative The Flu A target nucleic acids are not detected in this specimen. Influenza B RT-PCR (test code = 30907-9) Negative Negative The Flu B target nucleic acids are not detected in this specimen. RSV by RT-PCR (test code = 08084-2) Negative Negative The RSV target nucleic acids [...] the Act. Fact Sheet for Healthcare Providers:https://w ww.[employer]/Docu ments/Xpert%20Xpres s%20SARS%20CoV-2/Fa ct%20Sheets/302-390 2%86EANT-LLZ-1%20HE ALTHCARE%20PROVIDER S%20FACT%20SHEET.pd f Fact Sheet for Healthcare Patients:https://ww [employer]/Docum ents/Xpert%20Xpress %20SARS%20Cov-2/Fac t%20Sheets/302-3801 %10XYIX-UHF-9%20PAT IENT%20FACT%20SHEET .pdf Lab Interpretation (test code = 77820-4) [facility] [id number] 12:18:09* Test Item Value Reference Range Interpretation Comments SARS-COV2/RT-PCR (test code = 99872-4) Negative Negative The SARS-CoV-2 target nucleic acids [...] provider. Influenza A RT-PCR (test code = 41924-0) Negative Negative The Flu A target nucleic acids are not detected in this specimen. Influenza B RT-PCR (test code = 52751-9) Negative Negative The Flu B target nucleic acids are not detected in this specimen. RSV by RT-PCR (test code = 23550-5) Negative Negative The RSV target nucleic acids [...] the Act. Fact Sheet for Healthcare Providers:https://w [employer]/Docu ments/Xpert%20Xpres s%20SARS%20CoV-2/Fa ct%20Sheets/302-390 2%17VASY-XZW-5%20HE ALTHCARE%20PROVIDER S%20FACT%20SHEET.pd f Fact Sheet for Healthcare Patients:https://[employer]/Docum ents/Xpert%20Xpress %20SARS%20Cov-2/Fac t%20Sheets/302-3801 %09VBYO-TOL-9%20PAT IENT%20FACT%20SHEET .pdf Lab Interpretation (test code = 99271-6) [facility] [id number] 12:18:09* Test Item Value Reference Range Interpretation Comments SARS-COV2/RT-PCR (test code = 64544-2) Negative Negative The SARS-CoV-2 target nucleic acids [...] provider. Influenza A RT-PCR (test code = 41806-5) Negative Negative The Flu A target nucleic acids are not detected in this specimen. Influenza B RT-PCR (test code = 30831-2) Negative Negative The Flu B target nucleic acids are not detected in this specimen. RSV by RT-PCR (test code = 13514-3) Negative Negative The RSV target nucleic acids [...] of the Act. Fact Sheet for Healthcare Providers:https://aihuishou/Docu ments/Xpert%20Xpres s%20SARS%20CoV-2/Fa ct%20Sheets/302-390 2%50EKOE-IHE-6%20HE ALTHCARE%20PROVIDER S%20FACT%20SHEET.pd f Fact Sheet for Healthcare Patients:https://[employer]/Docum ents/Xpert%20Xpress %20SARS%20Cov-2/Fac t%20Sheets/302-3801 %84VYBL-TXN-4%20PAT IENT%20FACT%20SHEET .pdf Lab Interpretation (test code = 71326-7) [facility] [id number] 12:18:09* Test Item Value Reference Range Interpretation Comments SARS-COV2/RT-PCR (test code = 26601-2) Negative Negative The SARS-CoV-2 target nucleic acids [...] provider. Influenza A RT-PCR (test code = 60848-5) Negative Negative The Flu A target nucleic acids are not detected in this specimen. Influenza B RT-PCR (test code = 85765-3) Negative Negative The Flu B target nucleic acids are not detected in this specimen. RSV by RT-PCR (test code = 64437-1) Negative Negative The RSV target nucleic acids [...] the Act. Fact Sheet for Healthcare Providers:https://w [employer]/Docu ments/Xpert%20Xpres s%20SARS%20CoV-2/Fa ct%20Sheets/302-390 2%42QFDA-VMP-7%20HE ALTHCARE%20PROVIDER S%20FACT%20SHEET.pd f Fact Sheet for Healthcare Patients:https://maria elena [employer]/Docum ents/Xpert%20Xpress %20SARS%20Cov-2/Fac t%20Sheets/302-3801 %58YJFD-DJD-3%20PAT IENT%20FACT%20SHEET .pdf Lab Interpretation (test code = 29652-4) [facility] [id number] 12:18:09* Test Item Value Reference Range Interpretation Comments SARS-COV2/RT-PCR (test code = 58709-7) Negative Negative The SARS-CoV-2 target nucleic acids [...] provider. Influenza A RT-PCR (test code = 81091-7) Negative Negative The Flu A target nucleic acids are not detected in this specimen. Influenza B RT-PCR (test code = 03032-5) Negative Negative The Flu B target nucleic acids are not detected in this specimen. RSV by RT-PCR (test code = 60978-2) Negative Negative The RSV target nucleic acids [...] SARS-CoV-2/Flu/RSV by their healthcare provider. Results from [facility] Xpert Xpress SARS-CoV-2/Flu/RSV test should be correlated [...] the Act. Fact Sheet for Healthcare Providers:https://w [employer]/Docu ments/Xpert%20Xpres s%20SARS%20CoV-2/Fa ct%20Sheets/302-390 2%61DLSO-COH-8%20HE ALTHCARE%20PROVIDER S%20FACT%20SHEET.pd f Fact Sheet for Healthcare Patients:https://[employer]/Docum ents/Xpert%20Xpress %20SARS%20Cov-2/Fac t%20Sheets/302-3801 %11JELN-OPW-1%20PAT IENT%20FACT%20SHEET .pdf Lab Interpretation (test code = 37183-3) [facility] [id number] 12:18:09* Test Item Value Reference Range Interpretation Comments SARS-COV2/RT-PCR (test code = 50525-3) Negative Negative The SARS-CoV-2 target nucleic acids [...] provider. Influenza A RT-PCR (test code = 22477-7) Negative Negative The Flu A target nucleic acids are not detected in this specimen. Influenza B RT-PCR (test code = 02033-6) Negative Negative The Flu B target nucleic acids are not detected in this specimen. RSV by RT-PCR (test code = 56271-1) Negative Negative The RSV target nucleic acids [...] the Act. Fact Sheet for Healthcare Providers:https://w ww.[employer]/Docu ments/Xpert%20Xpres s%20SARS%20CoV-2/Fa ct%20Sheets/302-390 2%39BJVM-YUA-7%20HE ALTHCARE%20PROVIDER S%20FACT%20SHEET.pd f Fact Sheet for Healthcare Patients:https://maria elena [employer]/Docum ents/Xpert%20Xpress %20SARS%20Cov-2/Fac t%20Sheets/302-3801 %09KJPM-FED-6%20PAT IENT%20FACT%20SHEET .pdf Lab Interpretation (test code = 77083-1) [facility]V [id number] 12:18:09* Test Item Value Reference Range Interpretation Comments SARS-COV2/RT-PCR (test code = 03911-4) Negative Negative The SARS-CoV-2 target nucleic acids [...] provider. Influenza A RT-PCR (test code = 75249-1) Negative Negative The Flu A target nucleic acids are not detected in this specimen. Influenza B RT-PCR (test code = 37528-6) Negative Negative The Flu B target nucleic acids are not detected in this specimen. RSV by RT-PCR (test code = 04838-4) Negative Negative The RSV target nucleic acids [...] the Act. Fact Sheet for Healthcare Providers:https://w [employer]/Docu ments/Xpert%20Xpres s%20SARS%20CoV-2/Fa ct%20Sheets/302-390 2%07ZLDH-DVK-7%20HE ALTHCARE%20PROVIDER S%20FACT%20SHEET.pd f Fact Sheet for Healthcare Patients:https://[employer]/Docum ents/Xpert%20Xpress %20SARS%20Cov-2/Fac t%20Sheets/302-3801 %33NNVT-JON-2%20PAT IENT%20FACT%20SHEET .pdf Lab Interpretation (test code = 62224-0) [facility] [id number] 12:18:09* Test Item Value Reference Range Interpretation Comments SARS-COV2/RT-PCR (test code = 03897-7) Negative Negative The SARS-CoV-2 target nucleic acids [...] provider. Influenza A RT-PCR (test code = 50801-8) Negative Negative The Flu A target nucleic acids are not detected in this specimen. Influenza B RT-PCR (test code = 32706-6) Negative Negative The Flu B target nucleic acids are not detected in this specimen. RSV by RT-PCR (test code = 96087-1) Negative Negative The RSV target nucleic acids [...] the Act. Fact Sheet for Healthcare Providers:https://w [employer]/Docu ments/Xpert%20Xpres s%20SARS%20CoV-2/Fa ct%20Sheets/302-390 2%69UVOO-TLA-5%20HE ALTHCARE%20PROVIDER S%20FACT%20SHEET.pd f Fact Sheet for Healthcare Patients:https://maria elena [employer]/Docum ents/Xpert%20Xpress %20SARS%20Cov-2/Fac t%20Sheets/302-3801 %86EQDE-KGI-6%20PAT IENT%20FACT%20SHEET .pdf Lab Interpretation (test code = 72074-2) [facility] [id number] 12:18:09* Test Item Value Reference Range Interpretation Comments SARS-COV2/RT-PCR (test code = 53601-6) Negative Negative The SARS-CoV-2 target nucleic acids [...] provider. Influenza A RT-PCR (test code = 44088-1) Negative Negative The Flu A target nucleic acids are not detected in this specimen. Influenza B RT-PCR (test code = 50809-4) Negative Negative The Flu B target nucleic acids are not detected in this specimen. RSV by RT-PCR (test code = 77905-3) Negative Negative The RSV target nucleic acids [...] the Act. Fact Sheet for Healthcare Providers:https://w [employer]/Docu ments/Xpert%20Xpres s%20SARS%20CoV-2/Fa ct%20Sheets/302-390 2%78ABEN-ELY-3%20HE ALTHCARE%20PROVIDER S%20FACT%20SHEET.pd f Fact Sheet for Healthcare Patients:https://maria elena [employer]/Docum ents/Xpert%20Xpress %20SARS%20Cov-2/Fac t%20Sheets/302-3801 %76YXPE-OPF-7%20PAT IENT%20FACT%20SHEET .pdf Lab Interpretation (test code = 15200-4) [facility] [id number] 12:18:09* Test Item Value Reference Range Interpretation Comments SARS-COV2/RT-PCR (test code = 38383-9) Negative Negative The SARS-CoV-2 target nucleic acids [...] provider. Influenza A RT-PCR (test code = 64808-9) Negative Negative The Flu A target nucleic acids are not detected in this specimen. Influenza B RT-PCR (test code = 43484-7) Negative Negative The Flu B target nucleic acids are not detected in this specimen. RSV by RT-PCR (test code = 44050-0) Negative Negative The RSV target nucleic acids [...] SARS-CoV-2/Flu/RSV by their healthcare provider. Results from [facility] Xpert Xpress SARS-CoV-2/Flu/RSV test should be correlated [...] the Act. Fact Sheet for Healthcare Providers:https://w [employer]/Docu ments/Xpert%20Xpres s%20SARS%20CoV-2/Fa ct%20Sheets/302-390 2%97SZJE-FKX-9%20HE ALTHCARE%20PROVIDER S%20FACT%20SHEET.pd f Fact Sheet for Healthcare Patients:https://maria elena [employer]/Docum ents/Xpert%20Xpress %20SARS%20Cov-2/Fac t%20Sheets/302-3801 %50XFLH-QMN-8%20PAT IENT%20FACT%20SHEET .pdf Lab Interpretation (test code = 66953-7) [facility] [id number] 12:18:09* Test Item Value Reference Range Interpretation Comments SARS-COV2/RT-PCR (test code = 94481-8) Negative Negative The SARS-CoV-2 target nucleic acids [...] provider. Influenza A RT-PCR (test code = 32462-9) Negative Negative The Flu A target nucleic acids are not detected in this specimen. Influenza B RT-PCR (test code = 16336-9) Negative Negative The Flu B target nucleic acids are not detected in this specimen. RSV by RT-PCR (test code = 81434-7) Negative Negative The RSV target nucleic acids [...] the Act. Fact Sheet for Healthcare Providers:https://w ww.[employer]/Docu ments/Xpert%20Xpres s%20SARS%20CoV-2/Fa ct%20Sheets/302-390 2%78LXPS-IUM-3%20HE ALTHCARE%20PROVIDER S%20FACT%20SHEET.pd f Fact Sheet for Healthcare Patients:https://ww w.[employer]/Docum ents/Xpert%20Xpress %20SARS%20Cov-2/Fac t%20Sheets/302-3801 %97IRRU-SLL-4%20PAT IENT%20FACT%20SHEET .pdf Lab Interpretation (test code = 93931-3) [facility] [id number] 12:18:09* Test Item Value Reference Range Interpretation Comments SARS-COV2/RT-PCR (test code = 21998-3) Negative Negative The SARS-CoV-2 target nucleic acids [...] provider. Influenza A RT-PCR (test code = 07904-4) Negative Negative The Flu A target nucleic acids are not detected in this specimen. Influenza B RT-PCR (test code = 92368-7) Negative Negative The Flu B target nucleic acids are not detected in this specimen. RSV by RT-PCR (test code = 11814-2) Negative Negative The RSV target nucleic acids [...] the Act. Fact Sheet for Healthcare Providers:https://w [employer]/Docu ments/Xpert%20Xpres s%20SARS%20CoV-2/Fa ct%20Sheets/302-390 2%49UPBI-MWV-5%20HE ALTHCARE%20PROVIDER S%20FACT%20SHEET.pd f Fact Sheet for Healthcare Patients:https://[employer]/Docum ents/Xpert%20Xpress %20SARS%20Cov-2/Fac t%20Sheets/302-3801 %19FUYW-IWI-0%20PAT IENT%20FACT%20SHEET .pdf Lab Interpretation (test code = 82707-4) [facility] [id number] 12:18:09* Test Item Value Reference Range Interpretation Comments SARS-COV2/RT-PCR (test code = 72105-6) Negative Negative The SARS-CoV-2 target nucleic acids [...] provider. Influenza A RT-PCR (test code = 39519-8) Negative Negative The Flu A target nucleic acids are not detected in this specimen. Influenza B RT-PCR (test code = 41831-0) Negative Negative The Flu B target nucleic acids are not detected in this specimen. RSV by RT-PCR (test code = 78531-1) Negative Negative The RSV target nucleic acids [...] the Act. Fact Sheet for Healthcare Providers:https://w [employer]/Docu ments/Xpert%20Xpres s%20SARS%20CoV-2/Fa ct%20Sheets/302-390 2%24BZYJ-FDG-3%20HE ALTHCARE%20PROVIDER S%20FACT%20SHEET.pd f Fact Sheet for Healthcare Patients:https://[employer]/Docum ents/Xpert%20Xpress %20SARS%20Cov-2/Fac t%20Sheets/302-3801 %91SPUF-NGR-9%20PAT IENT%20FACT%20SHEET .pdf Lab Interpretation (test code = 47160-9) [facility] [id number] 12:18:09* Test Item Value Reference Range Interpretation Comments SARS-COV2/RT-PCR (test code = 70035-5) Negative Negative The SARS-CoV-2 target nucleic acids [...] provider. Influenza A RT-PCR (test code = 20796-1) Negative Negative The Flu A target nucleic acids are not detected in this specimen. Influenza B RT-PCR (test code = 70104-8) Negative Negative The Flu B target nucleic acids are not detected in this specimen. RSV by RT-PCR (test code = 07107-5) Negative Negative The RSV target nucleic acids [...] the Act. Fact Sheet for Healthcare Providers:https://w [employer]/Docu ments/Xpert%20Xpres s%20SARS%20CoV-2/Fa ct%20Sheets/302-390 2%88WEHA-QYY-7%20HE ALTHCARE%20PROVIDER S%20FACT%20SHEET.pd f Fact Sheet for Healthcare Patients:https://[employer]ia [employer]/Docum ents/Xpert%20Xpress %20SARS%20Cov-2/Fac t%20Sheets/302-3801 %13IZZU-BJS-6%20PAT IENT%20FACT%20SHEET .pdf Lab Interpretation (test code = 76448-3) [facility] [id number] 12:18:09* Test Item Value Reference Range Interpretation Comments SARS-COV2/RT-PCR (test code = 77609-5) Negative Negative The SARS-CoV-2 target nucleic acids [...] provider. Influenza A RT-PCR (test code = 22883-5) Negative Negative The Flu A target nucleic acids are not detected in this specimen. Influenza B RT-PCR (test code = 55028-7) Negative Negative The Flu B target nucleic acids are not detected in this specimen. RSV by RT-PCR (test code = 25838-0) Negative Negative The RSV target nucleic acids [...] SARS-CoV-2/Flu/RSV by their healthcare provider. Results from [facility] Xpert Xpress SARS-CoV-2/Flu/RSV test should be [...] the Act. Fact Sheet for Healthcare Providers:https://w [employer]/Docu ments/Xpert%20Xpres s%20SARS%20CoV-2/Fa ct%20Sheets/302-390 2%00PADF-FWR-1%20HE ALTHCARE%20PROVIDER S%20FACT%20SHEET.pd f Fact Sheet for Healthcare Patients:https://[employer]/Docum ents/Xpert%20Xpress %20SARS%20Cov-2/Fac t%20Sheets/302-3801 %35DWMO-NBP-2%20PAT IENT%20FACT%20SHEET .pdf Lab Interpretation (test code = 05357-2) [facility] [id number] 12:18:09* Test Item Value Reference Range Interpretation Comments SARS-COV2/RT-PCR (test code = 49778-0) Negative Negative The SARS-CoV-2 target nucleic acids [...] provider. Influenza A RT-PCR (test code = 31538-6) Negative Negative The Flu A target nucleic acids are not detected in this specimen. Influenza B RT-PCR (test code = 30733-8) Negative Negative The Flu B target nucleic acids are not detected in this specimen. RSV by RT-PCR (test code = 42211-4) Negative Negative The RSV target nucleic acids [...] SARS-CoV-2/Flu/RSV by their healthcare provider. Results from [facility] Xpert Xpress SARS-CoV-2/Flu/RSV test should be [...] the Act. Fact Sheet for Healthcare Providers:https://w ww[employer]/Docu ments/Xpert%20Xpres s%20SARS%20CoV-2/Fa ct%20Sheets/302-390 2%35ETAH-NES-6%20HE ALTHCARE%20PROVIDER S%20FACT%20SHEET.pd f Fact Sheet for Healthcare Patients:https://ww [employer]/Docum ents/Xpert%20Xpress %20SARS%20Cov-2/Fac t%20Sheets/302-3801 %05JWGV-RNZ-8%20PAT IENT%20FACT%20SHEET .pdf Lab Interpretation (test code = 73349-1) [facility]ENZA[facility]RSV [id number] 12:18:09* Test Item Value Reference Range Interpretation Comme nts SARS-COV2/RT-PCR (test code = 3737390) Negative Negative The SARS-CoV-2 t arget nucleic [...] provider. INFLUENZA A RT-PCR (test code = 0045425) Negative Negative The Flu A target nucleic acids are not detected in this specimen. INFLUENZA B RT-PCR (test code = 6318850) Negative Negative The Flu B target nucleic acids are not detected in this specimen. RSV RT-PCR (test code = 7567684) Negative Negative The RSV target n ucleic [...] SARS-CoV-2/Flu/RSV by their healthcare provider. Results from [facility] Xpert Xpress SARS-CoV-2/Flu/RSV test should be [...] 564(g) of the Act.Fact Sheet for Healthcare Providers:https://www.[employer]/Documents/Xpert%20Xpress%20SARS%20CoV-2/Fact%2 0Sheets/3023902%51PSZC-ORH-9%20HEALTHCARE%20PROVIDERS%20FACT%20SHEET.pdfFact Sheet for Healthcare Patients:https://ww w.[employer]/Documents/Xpert%20Xpress%20SARS%20Cov-2/Fact%20Sheets/302-1151%20S ARS-COV-2%20PATIENT%20FACT%20SHEET.pdfPOCT-GLUCOSE [id number] 11:08:35* Test Item Value Reference Range Interpretation Comme nts POC-GLUCOSE METER (BEAKER) (test code = 1538) 111 mg/dL 70-110 H : TESTED AT [facility] [address], [address]: Machine Tool Technology Instructor/Seam Sewer ID = [id number] for Tramaine Daniels POCT-GLUCOSE [id number] 08:16:42* Test Item Value Reference Range Interpretation Comme [facility] POC-GLUCOSE METER ([employer]) (test code = 1538) 108 mg/dL 70-110 : TESTED AT [facility] [address], [address]: Machine Tool Technology Instructor/Seam Sewer ID = [id number] for Beata Vargas MR CERVICAL SPINE WITHOUT IV [id number] 07:58:49 [facility] : 1970 [...] spine.Posterior ligament ossifications at the calcifications at H32-C62jyiwadh moderate spinal canal stenosisPosterior disc osteophyte at the T11-T12 level causing mild spinal canalstenosisThe spinal cord is normal in caliber and signal intensity. There is no significant foraminal or spinal canal stenosis.2.1 x 2.3 cm left adrenal nodule, incompletely characterizedParaspinal soft tissues are unremarkable.Lumbar spine:Postoperative changes from posterior decompression at the L3 and R9qhfyym. A 1.3 x 1.5 cm (AP by [...] Signed By: Maxim Sultana09/04/2023 08:00 CDTWorkstation Name: [id number] THORACIC SPINE WITHOUT IV [id number] 07:58:49 [facility] [...] spine.Posterior ligament ossifications at the calcifications at M18-V89odlecak moderate spinal canal stenosisPosterior disc osteophyte at the T11-T12 level causing mild spinal canalstenosisThe spinal cord is normal in caliber and signal intensity. There is no significant foraminal or spinal canal stenosis.2.1 x 2.3 cm left adrenal nodule, incompletely characterizedParaspinal soft tissues are unremarkable.Lumbar spine:Postoperative changes from posterior decompression at the L3 and G5ielpbf. A 1.3 x 1.5 cm (AP by [...] Signed By: Maxim Sultana09/04/2023 08:00 CDTWorkstation Name: [id number] LUMBAR SPINE WITHOUT IV [id number] 07:58:49 [facility] [...] spine.Posterior ligament ossifications at the calcifications at R04-S45zdrecxb moderate spinal canal stenosisPosterior disc osteophyte at the T11-T12 level causing mild spinal canalstenosisThe spinal cord is normal in caliber and signal intensity. There is no significant foraminal or spinal canal stenosis.2.1 x 2.3 cm left adrenal nodule, incompletely characterizedParaspinal soft tissues are unremarkable.Lumbar spine:Postoperative changes from posterior decompression at the L3 and F6paamrd. A 1.3 x 1.5 cm (AP by [...] Signed By: Maxim Sultana09/04/2023 08:00 CDTWorkstation Name: [id number] 2023-09-04 07:46:14* Test Item Value Reference Range Interpretation Comme nts FERRITIN (BEAKER) (test code = 361) 31.77 ng/mL 5.00-275.00 [employer] Instructor ID - hgIRON, TIBC, % SAT. (WITHOUT FERRITIN)2023-09-04 07:24:52* Test Item Value Reference Range Interpretation Comme nts IRON (BEAKER) (test code = 547) 22.0 ug/dL 40.0-160.0 L TOTAL IRON BINDING CAPACITY (BEAKER) (test code = 769) 369 ug/dL 250-450 IRON % SATURATION (2) (LINNEAAKE R) (test code = 2590) 6 % 20-55 L [employer] Instructor ID - hgCT LUMBAR SPINE WITHOUT IV [id number] 05:42:45 [facility] [...] spine:Bones/alignment: Age- indeterminate nondisplaced fracture of the U3sjkrryjgw elements, predominantly i nvolving the lamina and [...] Signed By: Suzan Weaver09/04/2023 05:45 CDTWorkstation Name: [id number] THORACIC SPINE WITHOUT IV [id number] 05:42:45 [facility] 1970 Sex: FEXAM: [...] spine:Bones/alignment: Age- indeterminate nondisplaced fracture of the K7lrkxdyqxi elements, predominantly i nvolving the lamina and [...] Signed By: Suzan Weaver09/04/2023 05:45 CDTWorkstation Name: [id number] 04:44:34* Test Item Value Reference Range Interpretation Comme nts FIBRINOGEN LEVEL (BEAKER) (t est code = 658) 410 mg/dl 225-434 Urinalysis without Rufxzknvmnn1160-52-98 03:58:52* Test Item Value Reference Range Interpretation Comme nts Color, UA (test code = 5778-6) Light Yellow Clarity, UA (test code = 5767-9) Hazy Specific [place], UA (test code = 5811-5) 1.017 1.001-1.035 pH, UA (test code = 5803-2) 6.0 5.0-8.0 Protein, UA (test code = 58616-4) 10 mg/dL Negative A Glucose, UA (test code = 365) Negative Negative Ketones, UA (test code = 2514-8) Trace Negative A Bilirubin, UA (test code = 03417-4) Negative Negative Blood, UA (test code = 54434-3) Trace Negative A Nitrite, UA (test code = 5802-4) Negative Negative Leukocytes, UA (test code = 5799-2) Negative Negative Urobilinogen, UA (test code = 93393-5) 0.2 0.2-1.0 Specimen Source (test code = 2795) LYNDSAY (test code = LYNDSAY) Machine Tool Technology Instructor ID - [auto]Machine Tool Technology Instructor ID - tech Lab Interpretation (test code = 22803-6) [facility] Fcozolqbbzf2948-62-97 03:58:52* Test Item Value Reference Range Interpretation Comme nts Color, UA (test code = 5778-6) Light Yellow Clarity, UA (test code = 5767-9) Hazy Specific [place], UA (test code = 5811-5) 1.017 1.001-1.035 pH, UA (test code = 5803-2) 6.0 5.0-8.0 Protein, UA (test code = 00058-0) 10 mg/dL Negative A Glucose, UA (test code = 365) Negative Negative Ketones, UA (test code = 2514-8) Trace Negative A Bilirubin, UA (test code = 15206-2) Negative Negative Blood, UA (test code = 75418-1) Trace Negative A Nitrite, UA (test code = 5802-4) Negative Negative Leukocytes, UA (test code = 5799-2) Negative Negative Urobilinogen, UA (test code = 72030-8) 0.2 0.2-1.0 Specimen Source (test code = 2795) LYNDSAY (test code = LYNDSAY) Machine Tool Technology Instructor ID - [auto]Machine Tool Technology Instructor ID - tech Lab Interpretation (test code = 66804-0) [facility] Rwxmzjgxpjp6847-63-16 03:58:52* Test Item Value Reference Range Interpretation Comme nts Color, UA (test code = 5778-6) Light Yellow Clarity, UA (test code = 5767-9) Hazy Specific [place], UA (test code = 5811-5) 1.017 1.001-1.035 pH, UA (test code = 5803-2) 6.0 5.0-8.0 Protein, UA (test code = 64989-4) 10 mg/dL Negative A Glucose, UA (test code = 365) Negative Negative Ketones, UA (test code = 2514-8) Trace Negative A Bilirubin, UA (test code = 28109-0) Negative Negative Blood, UA (test code = 69249-4) Trace Negative A Nitrite, UA (test code = 5802-4) Negative Negative Leukocytes, UA (test code = 5799-2) Negative Negative Urobilinogen, UA (test code = 64038-9) 0.2 0.2-1.0 Specimen Source (test code = 2795) LYNDSAY (test code = LYNDSAY) Machine Tool Technology Instructor ID - [auto]Machine Tool Technology Instructor ID - tech Lab Interpretation (test code = 94652-3) [facility] Amwvzqoxbke9133-18-32 03:58:52* Test Item Value Reference Range Interpretation Comme nts Color, UA (test code = 5778-6) Light Yellow Clarity, UA (test code = 5767-9) Hazy Specific [place], UA (test code = 5811-5) 1.017 1.001-1.035 pH, UA (test code = 5803-2) 6.0 5.0-8.0 Protein, UA (test code = 25560-6) 10 mg/dL Negative A Glucose, UA (test code = 365) Negative Negative Ketones, UA (test code = 2514-8) Trace Negative A Bilirubin, UA (test code = 07778-2) Negative Negative Blood, UA (test code = 84454-9) Trace Negative A Nitrite, UA (test code = 5802-4) Negative Negative Leukocytes, UA (test code = 5799-2) Negative Negative Urobilinogen, UA (test code = 42476-5) 0.2 0.2-1.0 Specimen Source (test code = 2795) LYNDSAY (test code = LYNDSAY) Machine Tool Technology Instructor ID - [auto]Machine Tool Technology Instructor ID - tech Lab Interpretation (test code = 02097-7) [facility] Jrdwcvgnsen7675-17-07 03:58:52* Test Item Value Reference Range Interpretation Comme nts Color, UA (test code = 5778-6) Light Yellow Clarity, UA (test code = 5767-9) Hazy Specific [place], UA (test code = 5811-5) 1.017 1.001-1.035 pH, UA (test code = 5803-2) 6.0 5.0-8.0 Protein, UA (test code = 26607-1) 10 mg/dL Negative A Glucose, UA (test code = 365) Negative Negative Ketones, UA (test code = 2514-8) Trace Negative A Bilirubin, UA (test code = 47165-1) Negative Negative Blood, UA (test code = 49596-8) Trace Negative A Nitrite, UA (test code = 5802-4) Negative Negative Leukocytes, UA (test code = 5799-2) Negative Negative Urobilinogen, UA (test code = 99312-9) 0.2 0.2-1.0 Specimen Source (test code = 2795) LYNDSAY (test code = LYNDSAY) Machine Tool Technology Instructor ID - [auto]Machine Tool Technology Instructor ID - tech Lab Interpretation (test code = 29937-6) [facility] Hzoqpvvmbnf6119-33-48 03:58:52* Test Item Value Reference Range Interpretation Comme nts Color, UA (test code = 5778-6) Light Yellow Clarity, UA (test code = 5767-9) Hazy Specific [place], UA (test code = 5811-5) 1.017 1.001-1.035 pH, UA (test code = 5803-2) 6.0 5.0-8.0 Protein, UA (test code = 73322-5) 10 mg/dL Negative A Glucose, UA (test code = 365) Negative Negative Ketones, UA (test code = 2514-8) Trace Negative A Bilirubin, UA (test code = 14329-8) Negative Negative Blood, UA (test code = 07984-4) Trace Negative A Nitrite, UA (test code = 5802-4) Negative Negative Leukocytes, UA (test code = 5799-2) Negative Negative Urobilinogen, UA (test code = 56233-4) 0.2 0.2-1.0 Specimen Source (test code = 2795) LYNDSAY (test code = LYNDSAY) Machine Tool Technology Instructor ID - [auto]Machine Tool Technology Instructor ID - tech Lab Interpretation (test code = 18822-9) [facility] Elrhkhahpoe4545-74-08 03:58:52* Test Item Value Reference Range Interpretation Comme nts Color, UA (test code = 5778-6) Light Yellow Clarity, UA (test code = 5767-9) Hazy Specific [place], UA (test code = 5811-5) 1.017 1.001-1.035 pH, UA (test code = 5803-2) 6.0 5.0-8.0 Protein, UA (test code = 62776-8) 10 mg/dL Negative A Glucose, UA (test code = 365) Negative Negative Ketones, UA (test code = 2514-8) Trace Negative A Bilirubin, UA (test code = 69284-5) Negative Negative Blood, UA (test code = 00754-7) Trace Negative A Nitrite, UA (test code = 5802-4) Negative Negative Leukocytes, UA (test code = 5799-2) Negative Negative Urobilinogen, UA (test code = 32051-4) 0.2 0.2-1.0 Specimen Source (test code = 2795) LYNDSAY (test code = LYNDSAY) Machine Tool Technology Instructor ID - [auto]Machine Tool Technology Instructor ID - tech Lab Interpretation (test code = 84313-4) [facility] Juxfhvvuvaj6783-05-58 03:58:52* Test Item Value Reference Range Interpretation Comme nts Color, UA (test code = 5778-6) Light Yellow Clarity, UA (test code = 5767-9) Hazy Specific [place], UA (test code = 5811-5) 1.017 1.001-1.035 pH, UA (test code = 5803-2) 6.0 5.0-8.0 Protein, UA (test code = 36363-4) 10 mg/dL Negative A Glucose, UA (test code = 365) Negative Negative Ketones, UA (test code = 2514-8) Trace Negative A Bilirubin, UA (test code = 92660-9) Negative Negative Blood, UA (test code = 62864-8) Trace Negative A Nitrite, UA (test code = 5802-4) Negative Negative Leukocytes, UA (test code = 5799-2) Negative Negative Urobilinogen, UA (test code = 34161-4) 0.2 0.2-1.0 Specimen Source (test code = 2795) LYNDSAY (test code = LYNDSAY) Machine Tool Technology Instructor ID - [auto]Machine Tool Technology Instructor ID - tech Lab Interpretation (test code = 57938-7) [facility] Prywccihxhh4359-43-49 03:58:52* Test Item Value Reference Range Interpretation Comme nts Color, UA (test code = 5778-6) Light Yellow Clarity, UA (test code = 5767-9) Hazy Specific [place], UA (test code = 5811-5) 1.017 1.001-1.035 pH, UA (test code = 5803-2) 6.0 5.0-8.0 Protein, UA (test code = 54382-8) 10 mg/dL Negative A Glucose, UA (test code = 365) Negative Negative Ketones, UA (test code = 2514-8) Trace Negative A Bilirubin, UA (test code = 76389-2) Negative Negative Blood, UA (test code = 60251-9) Trace Negative A Nitrite, UA (test code = 5802-4) Negative Negative Leukocytes, UA (test code = 5799-2) Negative Negative Urobilinogen, UA (test code = 14266-4) 0.2 0.2-1.0 Specimen Source (test code = 2795) LYNDSAY (test code = LYNDSAY) Machine Tool Technology Instructor ID - [auto]Machine Tool Technology Instructor ID - tech Lab Interpretation (test code = 47370-3) [facility] Ycpnugbghiu6078-26-46 03:58:52* Test Item Value Reference Range Interpretation Comme nts Color, UA (test code = 5778-6) Light Yellow Clarity, UA (test code = 5767-9) Hazy Specific [place], UA (test code = 5811-5) 1.017 1.001-1.035 pH, UA (test code = 5803-2) 6.0 5.0-8.0 Protein, UA (test code = 81922-2) 10 mg/dL Negative A Glucose, UA (test code = 365) Negative Negative Ketones, UA (test code = 2514-8) Trace Negative A Bilirubin, UA (test code = 60160-9) Negative Negative Blood, UA (test code = 27167-6) Trace Negative A Nitrite, UA (test code = 5802-4) Negative Negative Leukocytes, UA (test code = 5799-2) Negative Negative Urobilinogen, UA (test code = 18034-9) 0.2 0.2-1.0 Specimen Source (test code = 2795) LYNDSAY (test code = LYNDSAY) Machine Tool Technology Instructor ID - [auto]Machine Tool Technology Instructor ID - tech Lab Interpretation (test code = 84226-6) [facility] Adsycrmxrry2575-55-68 03:58:52* Test Item Value Reference Range Interpretation Comme nts Color, UA (test code = 5778-6) Light Yellow Clarity, UA (test code = 5767-9) Hazy Specific [place], UA (test code = 5811-5) 1.017 1.001-1.035 pH, UA (test code = 5803-2) 6.0 5.0-8.0 Protein, UA (test code = 54717-8) 10 mg/dL Negative A Glucose, UA (test code = 365) Negative Negative Ketones, UA (test code = 2514-8) Trace Negative A Bilirubin, UA (test code = 15961-4) Negative Negative Blood, UA (test code = 28947-6) Trace Negative A Nitrite, UA (test code = 5802-4) Negative Negative Leukocytes, UA (test code = 5799-2) Negative Negative Urobilinogen, UA (test code = 94003-2) 0.2 0.2-1.0 Specimen Source (test code = 2795) LYNDSAY (test code = LYNDSAY) Machine Tool Technology Instructor ID - [auto]Machine Tool Technology Instructor ID - tech Lab Interpretation (test code = 71347-0) [facility] Yqykvwizbex5745-80-86 03:58:52* Test Item Value Reference Range Interpretation Comme nts Color, UA (test code = 5778-6) Light Yellow Clarity, UA (test code = 5767-9) Hazy Specific [place], UA (test code = 5811-5) 1.017 1.001-1.035 pH, UA (test code = 5803-2) 6.0 5.0-8.0 Protein, UA (test code = 23192-0) 10 mg/dL Negative A Glucose, UA (test code = 365) Negative Negative Ketones, UA (test code = 2514-8) Trace Negative A Bilirubin, UA (test code = 05465-2) Negative Negative Blood, UA (test code = 47654-3) Trace Negative A Nitrite, UA (test code = 5802-4) Negative Negative Leukocytes, UA (test code = 5799-2) Negative Negative Urobilinogen, UA (test code = 39586-8) 0.2 0.2-1.0 Specimen Source (test code = 2795) LYNDSAY (test code = LYNDSAY) Machine Tool Technology Instructor ID - [auto]Machine Tool Technology Instructor ID - tech Lab Interpretation (test code = 77438-9) [facility] Ttcahhgzzoi5573-41-48 03:58:52* Test Item Value Reference Range Interpretation Comme nts Color, UA (test code = 5778-6) Light Yellow Clarity, UA (test code = 5767-9) Hazy Specific [place], UA (test code = 5811-5) 1.017 1.001-1.035 pH, UA (test code = 5803-2) 6.0 5.0-8.0 Protein, UA (test code = 39915-0) 10 mg/dL Negative A Glucose, UA (test code = 365) Negative Negative Ketones, UA (test code = 2514-8) Trace Negative A Bilirubin, UA (test code = 00388-6) Negative Negative Blood, UA (test code = 36832-8) Trace Negative A Nitrite, UA (test code = 5802-4) Negative Negative Leukocytes, UA (test code = 5799-2) Negative Negative Urobilinogen, UA (test code = 79356-8) 0.2 0.2-1.0 Specimen Source (test code = 2795) LYNDSAY (test code = LYNDSAY) Machine Tool Technology Instructor ID - [auto]Machine Tool Technology Instructor ID - tech Lab Interpretation (test code = 38382-5) [facility] Ccwqsehlikq2230-90-41 03:58:52* Test Item Value Reference Range Interpretation Comme nts Color, UA (test code = 5778-6) Light Yellow Clarity, UA (test code = 5767-9) Hazy Specific [place], UA (test code = 5811-5) 1.017 1.001-1.035 pH, UA (test code = 5803-2) 6.0 5.0-8.0 Protein, UA (test code = 07724-7) 10 mg/dL Negative A Glucose, UA (test code = 365) Negative Negative Ketones, UA (test code = 2514-8) Trace Negative A Bilirubin, UA (test code = 90025-2) Negative Negative Blood, UA (test code = 90562-1) Trace Negative A Nitrite, UA (test code = 5802-4) Negative Negative Leukocytes, UA (test code = 5799-2) Negative Negative Urobilinogen, UA (test code = 36349-1) 0.2 0.2-1.0 Specimen Source (test code = 2795) LYNDSAY (test code = LYNDSAY) Machine Tool Technology Instructor ID - [auto]Machine Tool Technology Instructor ID - tech Lab Interpretation (test code = 66666-1) [facility] Xlhjzpihiwa3801-73-41 03:58:52* Test Item Value Reference Range Interpretation Comme nts Color, UA (test code = 5778-6) Light Yellow Clarity, UA (test code = 5767-9) Hazy Specific [place], UA (test code = 5811-5) 1.017 1.001-1.035 pH, UA (test code = 5803-2) 6.0 5.0-8.0 Protein, UA (test code = 55724-6) 10 mg/dL Negative A Glucose, UA (test code = 365) Negative Negative Ketones, UA (test code = 2514-8) Trace Negative A Bilirubin, UA (test code = 29591-8) Negative Negative Blood, UA (test code = 84182-1) Trace Negative A Nitrite, UA (test code = 5802-4) Negative Negative Leukocytes, UA (test code = 5799-2) Negative Negative Urobilinogen, UA (test code = 28944-5) 0.2 0.2-1.0 Specimen Source (test code = 2795) LYNDSAY (test code = LYNDSAY) [employer] Instructor ID - [auto][employer] Instructor ID - tech Lab Interpretation (test code = 32158-2) [facility] [id number] 03:58:52* Test Item Value Reference Range Interpretation Comme nts Color, UA (test code = 5778-6) Light Yellow Clarity, UA (test code = 5767-9) Hazy Specific [place], UA (test code = 5811-5) 1.017 1.001-1.035 pH, UA (test code = 5803-2) 6.0 5.0-8.0 Protein, UA (test code = 04297-6) 10 mg/dL Negative A Glucose, UA (test code = 365) Negative Negative Ketones, UA (test code = 2514-8) Trace Negative A Bilirubin, UA (test code = 44905-9) Negative Negative Blood, UA (test code = 78830-8) Trace Negative A Nitrite, UA (test code = 5802-4) Negative Negative Leukocytes, UA (test code = 5799-2) Negative Negative Urobilinogen, UA (test code = 24533-7) 0.2 0.2-1.0 Specimen Source (test code = 2795) LYNDSAY (test code = LYNDSAY) [employer] Instructor ID - [auto][employer] Instructor ID - tech Lab Interpretation (test code = 85179-9) [facility] [id number] 03:58:52* Test Item Value Reference Range Interpretation Comme nts Color, UA (test code = 5778-6) Light Yellow Clarity, UA (test code = 5767-9) Hazy Specific [place], UA (test code = 5811-5) 1.017 1.001-1.035 pH, UA (test code = 5803-2) 6.0 5.0-8.0 Protein, UA (test code = 29561-1) 10 mg/dL Negative A Glucose, UA (test code = 365) Negative Negative Ketones, UA (test code = 2514-8) Trace Negative A Bilirubin, UA (test code = 42244-0) Negative Negative Blood, UA (test code = 42924-6) Trace Negative A Nitrite, UA (test code = 5802-4) Negative Negative Leukocytes, UA (test code = 5799-2) Negative Negative Urobilinogen, UA (test code = 20854-9) 0.2 0.2-1.0 Specimen Source (test code = 2795) LYNDSAY (test code = LYNDSAY) [employer] Instructor ID - [auto][employer] Instructor ID - tech Lab Interpretation (test code = 93253-6) [facility] [id number] 03:58:52* Test Item Value Reference Range Interpretation Comme nts Color, UA (test code = 5778-6) Light Yellow Clarity, UA (test code = 5767-9) Hazy Specific [place], UA (test code = 5811-5) 1.017 1.001-1.035 pH, UA (test code = 5803-2) 6.0 5.0-8.0 Protein, UA (test code = 81439-2) 10 mg/dL Negative A Glucose, UA (test code = 365) Negative Negative Ketones, UA (test code = 2514-8) Trace Negative A Bilirubin, UA (test code = 08294-6) Negative Negative Blood, UA (test code = 31607-4) Trace Negative A Nitrite, UA (test code = 5802-4) Negative Negative Leukocytes, UA (test code = 5799-2) Negative Negative Urobilinogen, UA (test code = 67880-1) 0.2 0.2-1.0 Specimen Source (test code = 2795) LYNDSAY (test code = LYNDSAY) [employer] Instructor ID - [auto][employer] Instructor ID - tech Lab Interpretation (test code = 01319-0) [facility] Gjfzlhxcbgl8384-11-13 03:58:52* Test Item Value Reference Range Interpretation Comme nts Color, UA (test code = 5778-6) Light Yellow Clarity, UA (test code = 5767-9) Hazy Specific [place], UA (test code = 5811-5) 1.017 1.001-1.035 pH, UA (test code = 5803-2) 6.0 5.0-8.0 Protein, UA (test code = 81747-9) 10 mg/dL Negative A Glucose, UA (test code = 365) Negative Negative Ketones, UA (test code = 2514-8) Trace Negative A Bilirubin, UA (test code = 76111-0) Negative Negative Blood, UA (test code = 90264-3) Trace Negative A Nitrite, UA (test code = 5802-4) Negative Negative Leukocytes, UA (test code = 5799-2) Negative Negative Urobilinogen, UA (test code = 10652-0) 0.2 0.2-1.0 Specimen Source (test code = 2795) LYNDSAY (test code = LYNDSAY) [employer] Instructor ID - [auto][employer] Instructor ID - tech Lab Interpretation (test code = 52301-5) [facility] Ysntrmwyvzb0221-02-24 03:58:52* Test Item Value Reference Range Interpretation Comme nts Color, UA (test code = 5778-6) Light Yellow Clarity, UA (test code = 5767-9) Hazy Specific [place], UA (test code = 5811-5) 1.017 1.001-1.035 pH, UA (test code = 5803-2) 6.0 5.0-8.0 Protein, UA (test code = 32667-2) 10 mg/dL Negative A Glucose, UA (test code = 365) Negative Negative Ketones, UA (test code = 2514-8) Trace Negative A Bilirubin, UA (test code = 86912-0) Negative Negative Blood, UA (test code = 78243-9) Trace Negative A Nitrite, UA (test code = 5802-4) Negative Negative Leukocytes, UA (test code = 5799-2) Negative Negative Urobilinogen, UA (test code = 93601-8) 0.2 0.2-1.0 Specimen Source (test code = 2795) LYNDSAY (test code = LYNDSAY) [employer] Instructor ID - [auto][employer] Instructor ID - tech Lab Interpretation (test code = 60164-2) [facility] [id number] 03:58:52* Test Item Value Reference Range Interpretation Comme nts Color, UA (test code = 5778-6) Light Yellow Clarity, UA (test code = 5767-9) Hazy Specific [place], UA (test code = 5811-5) 1.017 1.001-1.035 pH, UA (test code = 5803-2) 6.0 5.0-8.0 Protein, UA (test code = 10766-8) 10 mg/dL Negative A Glucose, UA (test code = 365) Negative Negative Ketones, UA (test code = 2514-8) Trace Negative A Bilirubin, UA (test code = 09015-0) Negative Negative Blood, UA (test code = 64975-7) Trace Negative A Nitrite, UA (test code = 5802-4) Negative Negative Leukocytes, UA (test code = 5799-2) Negative Negative Urobilinogen, UA (test code = 09852-7) 0.2 0.2-1.0 Specimen Source (test code = 2795) LYNDSAY (test code = LYNDSAY) [employer] Instructor ID - [auto][employer] Instructor ID - tech Lab Interpretation (test code = 07101-9) [facility] [id number] 03:58:52* Test Item Value Reference Range Interpretation [...] 0.2 0.2-1.0 SOURCE(BEAKER) (test code = 2795) [employer] Instructor ID - [auto][employer] Instructor ID - techCBC W/PLT COUNT & AUTO [...] 2801) 0.70 % 0.00-1.00 Rapid drug screen, [id number] 02:20:15* Test Item Value Reference Range Interpretation Comme nts Barbiturate Screen (test code = 14094-9) Negative Negative Benzodiazepine Screen (test code = 57085-0) Negative Negative Cocaine (Metab.) Screen (test code = 3397-7) Positive Negative A Methadone Screen (test code = 06863-6) Negative Negative Opiate Screen (test code = 84187-9) Negative Negative Cannabinoid Screen (test code = 67664-5) Positive Negative A Amph/Methamph Screen (test code = 16334-4) Negative Negative Phencyclidine Screen (test code = 79444-1) Negative Negative pH, UA (test code = 5803-2) 6.0 5.0-8.0 LYNDSAY (test code = LYNDSAY) DRUG CUTOFF CONC.Cocaine 300 ng/mL Cannabinoid 50 ng/mLBenzodiazepine 200 ng/mLBarbiturate 200 ng/mLPhencyclidine 25 ng/mLOpiate 300 ng/mLMethadone 300 ng/mLAmphetamine/ 1000 ng/mL Methamphetamine This assay provides an unconfirmed qualitative test result for the clinical management of patients in emergency situations. Chain of custody not maintained. Some symw-jeu-mkrdpqo medications, as well as adulterants, may cause inaccurate results. Clinical correlation should be applied. A more comprehensive drug screen or confirmation of a detected drug may be performed upon request.[employer] Instructor ID - ADMIN Lab Interpretation (test code = 36113-9) [facility], [id number] 02:20:15* Test Item Value Reference Range Interpretation Comme nts Barbiturate Screen (test code = 56530-7) Negative Negative Benzodiazepine Screen (test code = 31387-1) Negative Negative Cocaine (Metab.) Screen (test code = 3397-7) Positive Negative A Methadone Screen (test code = 88125-0) Negative Negative Opiate Screen (test code = 63957-0) Negative Negative Cannabinoid Screen (test code = 72140-7) Positive Negative A Amph/Methamph Screen (test code = 54076-8) Negative Negative Phencyclidine Screen (test code = 43140-1) Negative Negative pH, UA (test code = 5803-2) 6.0 5.0-8.0 LYNDSAY (test code = LYNDSAY) DRUG CUTOFF CONC.Cocaine 300 ng/mL Cannabinoid 50 ng/mLBenzodiazepine 200 ng/mLBarbiturate 200 ng/mLPhencyclidine 25 ng/mLOpiate 300 ng/mLMethadone 300 ng/mLAmphetamine/ 1000 ng/mL Methamphetamine This assay provides an unconfirmed qualitative test result for the clinical management of patients in emergency situations. Chain of custody not maintained. Some haug-wsn-otubeep medications, as well as adulterants, may cause inaccurate results. Clinical correlation should be applied. A more comprehensive drug screen or confirmation of a detected drug may be performed upon request.[employer] Instructor ID - ADMIN Lab Interpretation (test code = 92841-0) [facility], [id number] 02:20:15* Test Item Value Reference Range Interpretation Comme nts Barbiturate Screen (test code = 07621-2) Negative Negative Benzodiazepine Screen (test code = 09208-6) Negative Negative Cocaine (Metab.) Screen (test code = 3397-7) Positive Negative A Methadone Screen (test code = 34569-2) Negative Negative Opiate Screen (test code = 68599-1) Negative Negative Cannabinoid Screen (test code = 26433-1) Positive Negative A Amph/Methamph Screen (test code = 79019-5) Negative Negative Phencyclidine Screen (test code = 32658-5) Negative Negative pH, UA (test code = 5803-2) 6.0 5.0-8.0 LYNDSAY (test code = LYNDSAY) DRUG CUTOFF CONC.Cocaine 300 ng/mL Cannabinoid 50 ng/mLBenzodiazepine 200 ng/mLBarbiturate 200 ng/mLPhencyclidine 25 ng/mLOpiate 300 ng/mLMethadone 300 ng/mLAmphetamine/ 1000 ng/mL Methamphetamine This assay provides an unconfirmed qualitative test result for the clinical management of patients in emergency situations. Chain of custody not maintained. Some dsdt-kvy-tjfbojr medications, as well as adulterants, may cause inaccurate results. Clinical correlation should be applied. A more comprehensive drug screen or confirmation of a detected drug may be performed upon request.[employer] Instructor ID - ADMIN Lab Interpretation (test code = 28061-0) [facility], [id number] 02:20:15* Test Item Value Reference Range Interpretation Comme nts Barbiturate Screen (test code = 76247-7) Negative Negative Benzodiazepine Screen (test code = 52349-4) Negative Negative Cocaine (Metab.) Screen (test code = 3397-7) Positive Negative A Methadone Screen (test code = 43547-2) Negative Negative Opiate Screen (test code = 87302-8) Negative Negative Cannabinoid Screen (test code = 56561-1) Positive Negative A Amph/Methamph Screen (test code = 28019-2) Negative Negative Phencyclidine Screen (test code = 35816-7) Negative Negative pH, UA (test code = 5803-2) 6.0 5.0-8.0 LYNDSAY (test code = LYNDSAY) DRUG CUTOFF CONC.Cocaine 300 ng/mL Cannabinoid 50 ng/mLBenzodiazepine 200 ng/mLBarbiturate 200 ng/mLPhencyclidine 25 ng/mLOpiate 300 ng/mLMethadone 300 ng/mLAmphetamine/ 1000 ng/mL Methamphetamine This assay provides an unconfirmed qualitative test result for the clinical management of patients in emergency situations. Chain of custody not maintained. Some mbiw-xjn-evsldkx medications, as well as adulterants, may cause inaccurate results. Clinical correlation should be applied. A more comprehensive drug screen or confirmation of a detected drug may be performed upon request.[employer] Instructor ID - ADMIN Lab Interpretation (test code = 05019-3) [facility], [id number] 02:20:15* Test Item Value Reference Range Interpretation Comme nts Barbiturate Screen (test code = 24353-0) Negative Negative Benzodiazepine Screen (test code = 48153-9) Negative Negative Cocaine (Metab.) Screen (test code = 3397-7) Positive Negative A Methadone Screen (test code = 20934-6) Negative Negative Opiate Screen (test code = 36422-2) Negative Negative Cannabinoid Screen (test code = 42391-9) Positive Negative A Amph/Methamph Screen (test code = 98661-4) Negative Negative Phencyclidine Screen (test code = 28802-9) Negative Negative pH, UA (test code = 5803-2) 6.0 5.0-8.0 LYNDSAY (test code = LYNDSAY) DRUG CUTOFF CONC.Cocaine 300 ng/mL Cannabinoid 50 ng/mLBenzodiazepine 200 ng/mLBarbiturate 200 ng/mLPhencyclidine 25 ng/mLOpiate 300 ng/mLMethadone 300 ng/mLAmphetamine/ 1000 ng/mL Methamphetamine This assay provides an unconfirmed qualitative test result for the clinical management of patients in emergency situations. Chain of custody not maintained. Some eusd-rip-tayoyqv medications, as well as adulterants, may cause inaccurate results. Clinical correlation should be applied. A more comprehensive drug screen or confirmation of a detected drug may be performed upon request.[employer] Instructor ID - ADMIN Lab Interpretation (test code = 77806-5) [facility], [id number] 02:20:15* Test Item Value Reference Range Interpretation Comme nts Barbiturate Screen (test code = 23208-0) Negative Negative Benzodiazepine Screen (test code = 01011-4) Negative Negative Cocaine (Metab.) Screen (test code = 3397-7) Positive Negative A Methadone Screen (test code = 74094-3) Negative Negative Opiate Screen (test code = 60723-1) Negative Negative Cannabinoid Screen (test code = 35823-5) Positive Negative A Amph/Methamph Screen (test code = 88195-1) Negative Negative Phencyclidine Screen (test code = 20663-3) Negative Negative pH, UA (test code = 5803-2) 6.0 5.0-8.0 LYNDSAY (test code = LYNDSAY) DRUG CUTOFF CONC.Cocaine 300 ng/mL Cannabinoid 50 ng/mLBenzodiazepine 200 ng/mLBarbiturate 200 ng/mLPhencyclidine 25 ng/mLOpiate 300 ng/mLMethadone 300 ng/mLAmphetamine/ 1000 ng/mL Methamphetamine This assay provides an unconfirmed qualitative test result for the clinical management of patients in emergency situations. Chain of custody not maintained. Some pcvt-zig-dynvnsk medications, as well as adulterants, may cause inaccurate results. Clinical correlation should be applied. A more comprehensive drug screen or confirmation of a detected drug may be performed upon request.[employer] Instructor ID - ADMIN Lab Interpretation (test code = 20843-1) [facility], [id number] 02:20:15* Test Item Value Reference Range Interpretation Comme nts Barbiturate Screen (test code = 80661-8) Negative Negative Benzodiazepine Screen (test code = 94999-4) Negative Negative Cocaine (Metab.) Screen (test code = 3397-7) Positive Negative A Methadone Screen (test code = 16032-2) Negative Negative Opiate Screen (test code = 65648-9) Negative Negative Cannabinoid Screen (test code = 54835-5) Positive Negative A Amph/Methamph Screen (test code = 67882-5) Negative Negative Phencyclidine Screen (test code = 32755-4) Negative Negative pH, UA (test code = 5803-2) 6.0 5.0-8.0 LYNDSAY (test code = LYNDSAY) DRUG CUTOFF CONC.Cocaine 300 ng/mL Cannabinoid 50 ng/mLBenzodiazepine 200 ng/mLBarbiturate 200 ng/mLPhencyclidine 25 ng/mLOpiate 300 ng/mLMethadone 300 ng/mLAmphetamine/ 1000 ng/mL Methamphetamine This assay provides an unconfirmed qualitative test result for the clinical management of patients in emergency situations. Chain of custody not maintained. Some tmas-maa-fbblmgc medications, as well as adulterants, may cause inaccurate results. Clinical correlation should be applied. A more comprehensive drug screen or confirmation of a detected drug may be performed upon request.[employer] Instructor ID - ADMIN Lab Interpretation (test code = 32817-6) [facility], [id number] 02:20:15* Test Item Value Reference Range Interpretation Comme nts Barbiturate Screen (test code = 88966-9) Negative Negative Benzodiazepine Screen (test code = 38545-7) Negative Negative Cocaine (Metab.) Screen (test code = 3397-7) Positive Negative A Methadone Screen (test code = 30727-8) Negative Negative Opiate Screen (test code = 31736-2) Negative Negative Cannabinoid Screen (test code = 55461-2) Positive Negative A Amph/Methamph Screen (test code = 94802-1) Negative Negative Phencyclidine Screen (test code = 65829-0) Negative Negative pH, UA (test code = 5803-2) 6.0 5.0-8.0 LYNDSAY (test code = LYNDSAY) DRUG CUTOFF CONC.Cocaine 300 ng/mL Cannabinoid 50 ng/mLBenzodiazepine 200 ng/mLBarbiturate 200 ng/mLPhencyclidine 25 ng/mLOpiate 300 ng/mLMethadone 300 ng/mLAmphetamine/ 1000 ng/mL Methamphetamine This assay provides an unconfirmed qualitative test result for the clinical management of patients in emergency situations. Chain of custody not maintained. Some zrjc-vuu-kizxmzb medications, as well as adulterants, may cause inaccurate results. Clinical correlation should be applied. A more comprehensive drug screen or confirmation of a detected drug may be performed upon request.[employer] Instructor ID - ADMIN Lab Interpretation (test code = 65975-6) [facility], [id number] 02:20:15* Test Item Value Reference Range Interpretation Comme nts Barbiturate Screen (test code = 73110-0) Negative Negative Benzodiazepine Screen (test code = 69271-2) Negative Negative Cocaine (Metab.) Screen (test code = 3397-7) Positive Negative A Methadone Screen (test code = 00030-5) Negative Negative Opiate Screen (test code = 71953-0) Negative Negative Cannabinoid Screen (test code = 99088-7) Positive Negative A Amph/Methamph Screen (test code = 97621-0) Negative Negative Phencyclidine Screen (test code = 72378-8) Negative Negative pH, UA (test code = 5803-2) 6.0 5.0-8.0 LYNDSAY (test code = LYNDSAY) DRUG CUTOFF CONC.Cocaine 300 ng/mL Cannabinoid 50 ng/mLBenzodiazepine 200 ng/mLBarbiturate 200 ng/mLPhencyclidine 25 ng/mLOpiate 300 ng/mLMethadone 300 ng/mLAmphetamine/ 1000 ng/mL Methamphetamine This assay provides an unconfirmed qualitative test result for the clinical management of patients in emergency situations. Chain of custody not maintained. Some lmas-ild-xjqsrde medications, as well as adulterants, may cause inaccurate results. Clinical correlation should be applied. A more comprehensive drug screen or confirmation of a detected drug may be performed upon request.[employer] Instructor ID - ADMIN Lab Interpretation (test code = 95009-2) [facility], [id number] 02:20:15* Test Item Value Reference Range Interpretation Comme nts Barbiturate Screen (test code = 67942-6) Negative Negative Benzodiazepine Screen (test code = 75810-8) Negative Negative Cocaine (Metab.) Screen (test code = 3397-7) Positive Negative A Methadone Screen (test code = 71662-7) Negative Negative Opiate Screen (test code = 57949-1) Negative Negative Cannabinoid Screen (test code = 23575-9) Positive Negative A Amph/Methamph Screen (test code = 57728-3) Negative Negative Phencyclidine Screen (test code = 43715-6) Negative Negative pH, UA (test code = 5803-2) 6.0 5.0-8.0 LYNDSAY (test code = LYNDSAY) DRUG CUTOFF CONC.Cocaine 300 ng/mL Cannabinoid 50 ng/mLBenzodiazepine 200 ng/mLBarbiturate 200 ng/mLPhencyclidine 25 ng/mLOpiate 300 ng/mLMethadone 300 ng/mLAmphetamine/ 1000 ng/mL Methamphetamine This assay provides an unconfirmed qualitative test result for the clinical management of patients in emergency situations. Chain of custody not maintained. Some mabr-rpx-hkqogtq medications, as well as adulterants, may cause inaccurate results. Clinical correlation should be applied. A more comprehensive drug screen or confirmation of a detected drug may be performed upon request.[employer] Instructor ID - ADMIN Lab Interpretation (test code = 23906-5) [facility], [id number] 02:20:15* Test Item Value Reference Range Interpretation Comme nts Barbiturate Screen (test code = 90234-9) Negative Negative Benzodiazepine Screen (test code = 18935-9) Negative Negative Cocaine (Metab.) Screen (test code = 3397-7) Positive Negative A Methadone Screen (test code = 51272-8) Negative Negative Opiate Screen (test code = 31019-3) Negative Negative Cannabinoid Screen (test code = 68570-7) Positive Negative A Amph/Methamph Screen (test code = 29149-7) Negative Negative Phencyclidine Screen (test code = 58539-9) Negative Negative pH, UA (test code = 5803-2) 6.0 5.0-8.0 LYNDSAY (test code = LYNDSAY) DRUG CUTOFF CONC.Cocaine 300 ng/mL Cannabinoid 50 ng/mLBenzodiazepine 200 ng/mLBarbiturate 200 ng/mLPhencyclidine 25 ng/mLOpiate 300 ng/mLMethadone 300 ng/mLAmphetamine/ 1000 ng/mL Methamphetamine This assay provides an unconfirmed qualitative test result for the clinical management of patients in emergency situations. Chain of custody not maintained. Some vnrk-tcm-detlrrk medications, as well as adulterants, may cause inaccurate results. Clinical correlation should be applied. A more comprehensive drug screen or confirmation of a detected drug may be performed upon request.[employer] Instructor ID - ADMIN Lab Interpretation (test code = 32838-8) [facility], [id number] 02:20:15* Test Item Value Reference Range Interpretation Comme nts Barbiturate Screen (test code = 78853-3) Negative Negative Benzodiazepine Screen (test code = 41484-4) Negative Negative Cocaine (Metab.) Screen (test code = 3397-7) Positive Negative A Methadone Screen (test code = 39703-6) Negative Negative Opiate Screen (test code = 90254-7) Negative Negative Cannabinoid Screen (test code = 74858-2) Positive Negative A Amph/Methamph Screen (test code = 40218-4) Negative Negative Phencyclidine Screen (test code = 92268-4) Negative Negative pH, UA (test code = 5803-2) 6.0 5.0-8.0 LYNDSAY (test code = LYNDSAY) DRUG CUTOFF CONC.Cocaine 300 ng/mL Cannabinoid 50 ng/mLBenzodiazepine 200 ng/mLBarbiturate 200 ng/mLPhencyclidine 25 ng/mLOpiate 300 ng/mLMethadone 300 ng/mLAmphetamine/ 1000 ng/mL Methamphetamine This assay provides an unconfirmed qualitative test result for the clinical management of patients in emergency situations. Chain of custody not maintained. Some ownc-uey-qddrcqx medications, as well as adulterants, may cause inaccurate results. Clinical correlation should be applied. A more comprehensive drug screen or confirmation of a detected drug may be performed upon request.[employer] Instructor ID - ADMIN Lab Interpretation (test code = 83570-1) [facility], [id number] 02:20:15* Test Item Value Reference Range Interpretation Comme nts Barbiturate Screen (test code = 04415-6) Negative Negative Benzodiazepine Screen (test code = 04477-7) Negative Negative Cocaine (Metab.) Screen (test code = 3397-7) Positive Negative A Methadone Screen (test code = 92467-2) Negative Negative Opiate Screen (test code = 51929-8) Negative Negative Cannabinoid Screen (test code = 26090-0) Positive Negative A Amph/Methamph Screen (test code = 81899-7) Negative Negative Phencyclidine Screen (test code = 05356-8) Negative Negative pH, UA (test code = 5803-2) 6.0 5.0-8.0 LYNDSAY (test code = LYNDSAY) DRUG CUTOFF CONC.Cocaine 300 ng/mL Cannabinoid 50 ng/mLBenzodiazepine 200 ng/mLBarbiturate 200 ng/mLPhencyclidine 25 ng/mLOpiate 300 ng/mLMethadone 300 ng/mLAmphetamine/ 1000 ng/mL Methamphetamine This assay provides an unconfirmed qualitative test result for the clinical management of patients in emergency situations. Chain of custody not maintained. Some sljz-zxy-evfrqug medications, as well as adulterants, may cause inaccurate results. Clinical correlation should be applied. A more comprehensive drug screen or confirmation of a detected drug may be performed upon request.[employer] Instructor ID - ADMIN Lab Interpretation (test code = 98776-4) [facility], [id number] 02:20:15* Test Item Value Reference Range Interpretation Comme nts Barbiturate Screen (test code = 44713-0) Negative Negative Benzodiazepine Screen (test code = 55129-0) Negative Negative Cocaine (Metab.) Screen (test code = 3397-7) Positive Negative A Methadone Screen (test code = 99497-3) Negative Negative Opiate Screen (test code = 40104-1) Negative Negative Cannabinoid Screen (test code = 92073-9) Positive Negative A Amph/Methamph Screen (test code = 56257-3) Negative Negative Phencyclidine Screen (test code = 91820-8) Negative Negative pH, UA (test code = 5803-2) 6.0 5.0-8.0 LYNDSAY (test code = LYNDSAY) DRUG CUTOFF CONC.Cocaine 300 ng/mL Cannabinoid 50 ng/mLBenzodiazepine 200 ng/mLBarbiturate 200 ng/mLPhencyclidine 25 ng/mLOpiate 300 ng/mLMethadone 300 ng/mLAmphetamine/ 1000 ng/mL Methamphetamine This assay provides an unconfirmed qualitative test result for the clinical management of patients in emergency situations. Chain of custody not maintained. Some vklk-tuc-sdeqvyi medications, as well as adulterants, may cause inaccurate results. Clinical correlation should be applied. A more comprehensive drug screen or confirmation of a detected drug may be performed upon request.[employer] Instructor ID - ADMIN Lab Interpretation (test code = 64158-0) [facility] [id number] 02:20:15* Test Item Value Reference Range Interpretation Comme nts Barbiturate Screen (test code = 61944-4) Negative Negative Benzodiazepine Screen (test code = 15409-6) Negative Negative Cocaine (Metab.) Screen (test code = 3397-7) Positive Negative A Methadone Screen (test code = 66364-6) Negative Negative Opiate Screen (test code = 37792-6) Negative Negative Cannabinoid Screen (test code = 71161-5) Positive Negative A Amph/Methamph Screen (test code = 99610-9) Negative Negative Phencyclidine Screen (test code = 88153-4) Negative Negative pH, UA (test code = 5803-2) 6.0 5.0-8.0 LYNDSAY (test code = LYNDSAY) DRUG CUTOFF CONC.Cocaine 300 ng/mL Cannabinoid 50 ng/mLBenzodiazepine 200 ng/mLBarbiturate 200 ng/mLPhencyclidine 25 ng/mLOpiate 300 ng/mLMethadone 300 ng/mLAmphetamine/ 1000 ng/mL Methamphetamine This assay provides an unconfirmed qualitative test result for the clinical management of patients in emergency situations. Chain of custody not maintained. Some ymts-ijl-jmjmtpm medications, as well as adulterants, may cause inaccurate results. Clinical correlation should be applied. A more comprehensive drug screen or confirmation of a detected drug may be performed upon request.[employer] Instructor ID - ADMIN Lab Interpretation (test code = 49970-3) [facility] [id number] 02:20:15* Test Item Value Reference Range Interpretation Comme nts Barbiturate Screen (test code = 32724-2) Negative Negative Benzodiazepine Screen (test code = 49989-7) Negative Negative Cocaine (Metab.) Screen (test code = 3397-7) Positive Negative A Methadone Screen (test code = 52624-2) Negative Negative Opiate Screen (test code = 55416-4) Negative Negative Cannabinoid Screen (test code = 14678-1) Positive Negative A Amph/Methamph Screen (test code = 68300-2) Negative Negative Phencyclidine Screen (test code = 01437-4) Negative Negative pH, UA (test code = 5803-2) 6.0 5.0-8.0 LYNDSAY (test code = LYNDSAY) DRUG CUTOFF CONC.Cocaine 300 ng/mL Cannabinoid 50 ng/mLBenzodiazepine 200 ng/mLBarbiturate 200 ng/mLPhencyclidine 25 ng/mLOpiate 300 ng/mLMethadone 300 ng/mLAmphetamine/ 1000 ng/mL Methamphetamine This assay provides an unconfirmed qualitative test result for the clinical management of patients in emergency situations. Chain of custody not maintained. Some mwjg-hgs-mjapxrx medications, as well as adulterants, may cause inaccurate results. Clinical correlation should be applied. A more comprehensive drug screen or confirmation of a detected drug may be performed upon request.[employer] Instructor ID - ADMIN Lab Interpretation (test code = 63893-7) [facility], [id number] 02:20:15* Test Item Value Reference Range Interpretation Comme nts Barbiturate Screen (test code = 83457-2) Negative Negative Benzodiazepine Screen (test code = 39544-0) Negative Negative Cocaine (Metab.) Screen (test code = 3397-7) Positive Negative A Methadone Screen (test code = 51524-4) Negative Negative Opiate Screen (test code = 48689-9) Negative Negative Cannabinoid Screen (test code = 60087-3) Positive Negative A Amph/Methamph Screen (test code = 52222-9) Negative Negative Phencyclidine Screen (test code = 47826-5) Negative Negative pH, UA (test code = 5803-2) 6.0 5.0-8.0 LYNDSAY (test code = LYNDSAY) DRUG CUTOFF CONC.Cocaine 300 ng/mL Cannabinoid 50 ng/mLBenzodiazepine 200 ng/mLBarbiturate 200 ng/mLPhencyclidine 25 ng/mLOpiate 300 ng/mLMethadone 300 ng/mLAmphetamine/ 1000 ng/mL Methamphetamine This assay provides an unconfirmed qualitative test result for the clinical management of patients in emergency situations. Chain of custody not maintained. Some pgqo-jvr-nxdeyte medications, as well as adulterants, may cause inaccurate results. Clinical correlation should be applied. A more comprehensive drug screen or confirmation of a detected drug may be performed upon request.[employer] Instructor ID - ADMIN Lab Interpretation (test code = 46552-9) [facility], [id number] 02:20:15* Test Item Value Reference Range Interpretation Comme nts Barbiturate Screen (test code = 78582-5) Negative Negative Benzodiazepine Screen (test code = 68442-3) Negative Negative Cocaine (Metab.) Screen (test code = 3397-7) Positive Negative A Methadone Screen (test code = 13124-9) Negative Negative Opiate Screen (test code = 38717-6) Negative Negative Cannabinoid Screen (test code = 28079-0) Positive Negative A Amph/Methamph Screen (test code = 54577-6) Negative Negative Phencyclidine Screen (test code = 30920-2) Negative Negative pH, UA (test code = 5803-2) 6.0 5.0-8.0 LYNDSAY (test code = LYNDSAY) DRUG CUTOFF CONC.Cocaine 300 ng/mL Cannabinoid 50 ng/mLBenzodiazepine 200 ng/mLBarbiturate 200 ng/mLPhencyclidine 25 ng/mLOpiate 300 ng/mLMethadone 300 ng/mLAmphetamine/ 1000 ng/mL Methamphetamine This assay provides an unconfirmed qualitative test result for the clinical management of patients in emergency situations. Chain of custody not maintained. Some ysra-xzy-grcpeqi medications, as well as adulterants, may cause inaccurate results. Clinical correlation should be applied. A more comprehensive drug screen or confirmation of a detected drug may be performed upon request.[employer] Instructor ID - ADMIN Lab Interpretation (test code = 79153-8) [facility], [id number] 02:20:15* Test Item Value Reference Range Interpretation Comme nts Barbiturate Screen (test code = 47044-2) Negative Negative Benzodiazepine Screen (test code = 01286-6) Negative Negative Cocaine (Metab.) Screen (test code = 3397-7) Positive Negative A Methadone Screen (test code = 80483-8) Negative Negative Opiate Screen (test code = 60915-9) Negative Negative Cannabinoid Screen (test code = 42200-3) Positive Negative A Amph/Methamph Screen (test code = 89645-5) Negative Negative Phencyclidine Screen (test code = 35303-1) Negative Negative pH, UA (test code = 5803-2) 6.0 5.0-8.0 LYNDSAY (test code = LYNDSAY) DRUG CUTOFF CONC.Cocaine 300 ng/mL Cannabinoid 50 ng/mLBenzodiazepine 200 ng/mLBarbiturate 200 ng/mLPhencyclidine 25 ng/mLOpiate 300 ng/mLMethadone 300 ng/mLAmphetamine/ 1000 ng/mL Methamphetamine This assay provides an unconfirmed qualitative test result for the clinical management of patients in emergency situations. Chain of custody not maintained. Some ezne-drj-nbcvurt medications, as well as adulterants, may cause inaccurate results. Clinical correlation should be applied. A more comprehensive drug screen or confirmation of a detected drug may be performed upon request.[employer] Instructor ID - ADMIN Lab Interpretation (test code = 53969-4) [facility]normal [facility], [id number] 02:20:15* Test Item Value Reference Range Interpretation Comme nts Barbiturate Screen (test code = 17888-6) Negative Negative Benzodiazepine Screen (test code = 27494-1) Negative Negative Cocaine (Metab.) Screen (test code = 3397-7) Positive Negative A Methadone Screen (test code = 76577-2) Negative Negative Opiate Screen (test code = 70067-1) Negative Negative Cannabinoid Screen (test code = 10666-4) Positive Negative A Amph/Methamph Screen (test code = 82093-0) Negative Negative Phencyclidine Screen (test code = 23227-4) Negative Negative pH, UA (test code = 5803-2) 6.0 5.0-8.0 LYNDSAY (test code = LYNDSAY) DRUG CUTOFF CONC.Cocaine 300 ng/mL Cannabinoid 50 ng/mLBenzodiazepine 200 ng/mLBarbiturate 200 ng/mLPhencyclidine 25 ng/mLOpiate 300 ng/mLMethadone 300 ng/mLAmphetamine/ 1000 ng/mL Methamphetamine This assay provides an unconfirmed qualitative test result for the clinical management of patients in emergency situations. Chain of custody not maintained. Some ilgk-dvb-fbdqrqn medications, as well as adulterants, may cause inaccurate results. Clinical correlation should be applied. A more comprehensive drug screen or confirmation of a detected drug may be performed upon request.[employer] Instructor ID - ADMIN Lab Interpretation (test code = 86762-0) [facility]normal [facility], [id number] 02:20:15* Test Item Value Reference Range Interpretation Comme nts Barbiturate Screen (test code = 59460-5) Negative Negative Benzodiazepine Screen (test code = 62404-5) Negative Negative Cocaine (Metab.) Screen (test code = 3397-7) Positive Negative A Methadone Screen (test code = 07706-1) Negative Negative Opiate Screen (test code = 74635-7) Negative Negative Cannabinoid Screen (test code = 79332-4) Positive Negative A Amph/Methamph Screen (test code = 27482-7) Negative Negative Phencyclidine Screen (test code = 78617-1) Negative Negative pH, UA (test code = 5803-2) 6.0 5.0-8.0 LYNDSAY (test code = LYNDSAY) DRUG CUTOFF CONC.Cocaine 300 ng/mL Cannabinoid 50 ng/mLBenzodiazepine 200 ng/mLBarbiturate 200 ng/mLPhencyclidine 25 ng/mLOpiate 300 ng/mLMethadone 300 ng/mLAmphetamine/ 1000 ng/mL Methamphetamine This assay provides an unconfirmed qualitative test result for the clinical management of patients in emergency situations. Chain of custody not maintained. Some rgbu-ulw-vdlxssj medications, as well as adulterants, may cause inaccurate results. Clinical correlation should be applied. A more comprehensive drug screen or confirmation of a detected drug may be performed upon request.[employer] Instructor ID - ADMIN Lab Interpretation (test code = 66340-5) [facility]normal [facility], [id number] 02:20:15* Test Item Value Reference Range Interpretation [...] situations. Chain of custody not maintained. Some hcei-fnw-hftftap medications, as well as adulterants, may cause inaccurate results. Clinical correlation should be applied. A more comprehensive drug screen or confirmation of a detected drug may be performed upon request.[employer] Instructor ID - ADMINB-TYPE NATRIURETIC FACTOR (BNP)2023-09-04 02:11:53* Test Item Value Reference Range Interpretation Comme nts B-TYPE NATRIURETIC PEPTIDE (BEAKER) (test code = 700) 1761 pg/mL 0-100 H [employer] Instructor ID - ADMINLACTIC ACID, [id number] 02:10:37* Test Item Value Reference Range Interpretation Comme nts LACTATE BLOOD VENOUS (2) (BEAKER) (test code = 2872) 1.04 mmol/L 0.50-2.00 Specimen slightl y hemolyzed [employer] Instructor ID - [id number] 02:04:37* Test Item Value Reference Range Interpretation Comme nts PHOSPHORUS (BEAKER) (test code = 604) 4.2 mg/dL 2.3-4.7 Specimen sligh tly hemolyzed [employer] Instructor ID - ADMINCOMPREHENSIVE METABOLIC [id number] 02:04:37* Test Item Value Reference Range Interpretation [...] GFR is not applicable for dialysis patients [employer] Instructor ID - [id number] 02:04:36* Test Item Value Reference Range Interpretation Comme nts MAGNESIUM (BEAKER) (test code = 627) 2.1 mg/dL 1.6-2.6 Specimen sligh tly hemolyzed [employer] Instructor ID - [id number] 01:45:13* Test Item Value Reference Range Interpretation Comme [facility] D-DIMER QUANTITATIVE (BEAKER ) (test code = [...] Test Item Value Reference Range Interpretation Comme [facility] PARTIAL THROMBOPLASTIN TIME (BEAKER) (test code = 760) 28.5 seconds 22.5-36.0 PROTHROMBIN TIME/[id number] 01:42:15* Test Item Value Reference Range Interpretation Comme nts PROTIME (BEAKER) (test code = 759) 15.8 seconds 11.9-14.2 H INR (BEAKER) (test code = 370) 1.25 <=5.90 RECOMMENDED COUMADIN/WARFARIN INR THERAPY RANGESSTANDARD DOSE: 2.0 - 3.0 Includes: PROPHYLAXIS for venous thrombosis, systemic embolization; TREATMENT for venous thrombosis and/or pulmonary embolus.HIGH RISK: Target INR is 2.5-3.5 for patients with mechanical heart valves.Lactic Acid Whole [id number] 20:51:22* Test Item Value Reference Range Interpretation Comme nts LACTIC ACID (test code = 7046934214) 1.56 mmol/L 0.50-2.20 Lab Interpretation (test cod e = 86265-1) [id number] 07:00:09* Test Item Value Reference Range Interpretation Comme nts CULTURE (BEAKER) (test code = 1095) No growth in 5 days BLOOD [id number] 07:00:09* Test Item Value Reference Range Interpretation Comme nts CULTURE (BEAKER) (test code = 1095) No growth in 5 days T-SPOT(R).[id number] 18:35:00* Test Item Value Reference Range Interpretation Comme nts T-SPOT.TB (test code = 9189473) Negative SeeBelow Normal Value: Ne gativeA negative [...] CORRECTED FOR NEG CONTROL (test code = 0261550) 1 PANEL B SPOT COUNT CORRECTED FOR NEG CONTROL (test code = 4855394) 0 NEGATIVE CONTROL (test code = 3370408) Passed POSITIVE CONTROL (test code = 0797294) Passed LYNDSAY (test code = LYNDSAY) [id number] [facility][id number] 18:35:00* Test Item Value Reference Range Interpretation Comme nts T-SPOT.TB (test code = 6487055) Negative SeeBelow Normal Value: Ne gativeA negative [...] CORRECTED FOR NEG CONTROL (test code = 6009979) 1 PANEL B SPOT COUNT CORRECTED FOR NEG CONTROL (test code = 1298601) 0 NEGATIVE CONTROL (test code = 3391474) Passed POSITIVE CONTROL (test code = 1720167) Passed LYNDSAY (test code = LYNDSAY) [id number] [facility][id number] 18:35:00* Test Item Value Reference Range Interpretation [...] CORRECTED FOR NEG CONTROL (test code = 7849899) 0 NEGATIVE CONTROL (test code = 3654285) Passed POSITIVE CONTROL (test code = 2344370) Passed LYNDSAY (test code = LYNDSAY) [id number] [facility][id number] 18:35:00* Test Item Value Reference Range Interpretation Comme nts T-SPOT.TB (test code = 4578765) Negative SeeBelow Normal Value: Ne gativeA negative [...] CORRECTED FOR NEG CONTROL (test code = 4809161) 0 NEGATIVE CONTROL (test code = 7883536) Passed POSITIVE CONTROL (test code = 3833603) Passed LYNDSAY (test code = LYNDSAY) [id number] [facility][id number] 18:35:00* Test Item Value Reference Range Interpretation [...] CORRECTED FOR NEG CONTROL (test code = 4440952) 0 NEGATIVE CONTROL (test code = 1080831) Passed POSITIVE CONTROL (test code = 9050930) Passed LYNDSAY (test code = LYNDSAY) [id number] [facility][id number] 18:35:00* Test Item Value Reference Range Interpretation Comme nts T-SPOT.TB (test code = 4517141) Negative SeeBelow Normal Value: Ne gativeA negative [...] CORRECTED FOR NEG CONTROL (test code = 3186411) 1 PANEL B SPOT COUNT CORRECTED FOR NEG CONTROL (test code = 4458231) 0 NEGATIVE CONTROL (test code = 0518788) Passed POSITIVE CONTROL (test code = 1659255) Passed LYNDSAY (test code = LYNDSAY) [id number] [facility][id number] 18:35:00* Test Item Value Reference Range Interpretation Comme nts T-SPOT.TB (test code = 5003541) Negative SeeBelow Normal Value: Ne gativeA negative [...] CORRECTED FOR NEG CONTROL (test code = 2744709) 1 PANEL B SPOT COUNT CORRECTED FOR NEG CONTROL (test code = 6339657) 0 NEGATIVE CONTROL (test code = 9617647) Passed POSITIVE CONTROL (test code = 8647006) Passed LYNDSAY (test code = LYNDSAY) [id number] [facility][id number] 18:35:00* Test Item Value Reference Range Interpretation Comme nts T-SPOT.TB (test code = 3307598) Negative SeeBelow Normal Value: Ne gativeA negative [...] CORRECTED FOR NEG CONTROL (test code = 6667406) 1 PANEL B SPOT COUNT CORRECTED FOR NEG CONTROL (test code = 3947699) 0 NEGATIVE CONTROL (test code = 4224219) Passed POSITIVE CONTROL (test code = 9847520) Passed LYNDSAY (test code = LYNDSAY) [id number] [facility][id number] 18:35:00* Test Item Value Reference Range Interpretation Comme nts T-SPOT.TB (test code = 9848293) Negative SeeBelow Normal Value: Ne gativeA negative [...] CORRECTED FOR NEG CONTROL (test code = 3621446) 1 PANEL B SPOT COUNT CORRECTED FOR NEG CONTROL (test code = 7055297) 0 NEGATIVE CONTROL (test code = 5124951) Passed POSITIVE CONTROL (test code = 6072327) Passed LYNDSAY (test code = LYNDSAY) [id number] [facility][id number] 18:35:00* Test Item Value Reference Range Interpretation [...] CORRECTED FOR NEG CONTROL (test code = 8972263) 0 NEGATIVE CONTROL (test code = 9130534) Passed POSITIVE CONTROL (test code = 8416718) Passed LYNDSAY (test code = LYNDSAY) [id number] [facility][id number] 18:35:00* Test Item Value Reference Range Interpretation Comme nts T-SPOT.TB (test code = 6911514) Negative SeeBelow Normal Value: Ne gativeA negative [...] 20150905) 0 NEGATIVE CONTROL (test code = 1728866) Passed POSITIVE CONTROL (test code = 20150907) Passed LYNDSAY (test code = LYNDSAY) [id number] [facility][id number] 18:35:00* Test Item Value Reference Range Interpretation Comme nts T-SPOT.TB (test code = 4347370) Negative SeeBelow Normal Value: Ne gativeA negative [...] CORRECTED FOR NEG CONTROL (test code = 8242412) 0 NEGATIVE CONTROL (test code = 2520153) Passed POSITIVE CONTROL (test code = 3543872) Passed LYNDSAY (test code = LYNDSAY) [id number] [facility][id number] 18:35:00* Test Item Value Reference Range Interpretation Comme nts T-SPOT.TB (test code = 7728189) Negative SeeBelow Normal Value: Ne gativeA negative [...] CORRECTED FOR NEG CONTROL (test code = 4710943) 1 PANEL B SPOT COUNT CORRECTED FOR NEG CONTROL (test code = 4259856) 0 NEGATIVE CONTROL (test code = 8287661) Passed POSITIVE CONTROL (test code = 2649384) Passed LYNDSAY (test code = LYNDSAY) [id number] [facility][id number] 18:35:00* Test Item Value Reference Range Interpretation Comme nts T-SPOT.TB (test code = 9395525) Negative SeeBelow Normal Value: Ne gativeA negative [...] CORRECTED FOR NEG CONTROL (test code = 5138627) 1 PANEL B SPOT COUNT CORRECTED FOR NEG CONTROL (test code = 9428411) 0 NEGATIVE CONTROL (test code = 6684199) Passed POSITIVE CONTROL (test code = 4810075) Passed LYNDSAY (test code = LYNDSAY) [id number] [facility][id number] 18:35:00* Test Item Value Reference Range Interpretation Comme nts T-SPOT.TB (test code = 93944-7) Negative SeeBelow Normal Value: Ne gativeA negative [...] CORRECTED FOR NEG CONTROL (test code = 33023-8) 0 NEGATIVE CONTROL (test code = 43869-7) Passed POSITIVE CONTROL (test code = 60804-9) Passed LYNDSAY (test code = LYNDSAY) [id number] [facility][id number] 18:35:00* Test Item Value Reference Range Interpretation Comme nts T-SPOT.TB (test code = 37693-7) Negative SeeBelow Normal Value: Ne gativeA negative [...] CORRECTED FOR NEG CONTROL (test code = 75926-1) 0 NEGATIVE CONTROL (test code = 23469-1) Passed POSITIVE CONTROL (test code = 26001-3) Passed LYNDSAY (test code = LYNDSAY) [id number] [facility][id number] 18:35:00* Test Item Value Reference Range Interpretation Comme nts T-SPOT.TB (test code = 24468-6) Negative SeeBelow Normal Value: Ne gativeA negative [...] CORRECTED FOR NEG CONTROL (test code = 08032-2) 0 NEGATIVE CONTROL (test code = 21592-5) Passed POSITIVE CONTROL (test code = 18902-8) Passed LYNDSAY (test code = LYNDSAY) [id number] [facility][id number] 18:35:00* Test Item Value Reference Range Interpretation Comme nts T-SPOT.TB (test code = 72954-3) Negative SeeBelow Normal Value: Ne gativeA negative [...] CORRECTED FOR NEG CONTROL (test code = 45411-8) 0 NEGATIVE CONTROL (test code = 29883-2) Passed POSITIVE CONTROL (test code = 14076-0) Passed LYNDSAY (test code = LYNDSAY) [id number] [facility][id number] 18:35:00* Test Item Value Reference Range Interpretation Comme nts T-SPOT.TB (test code = 42647-3) Negative SeeBelow Normal Value: Ne gativeA negative [...] CORRECTED FOR NEG CONTROL (test code = 54689-9) 0 NEGATIVE CONTROL (test code = 10469-5) Passed POSITIVE CONTROL (test code = 26991-6) Passed LYNDSAY (test code = LYNDSAY) [id number] [facility][id number] 18:35:00* Test Item Value Reference Range Interpretation Comme nts T-SPOT.TB (test code = 98989-5) Negative SeeBelow Normal Value: Ne gativeA negative [...] CORRECTED FOR NEG CONTROL (test code = 57909-4) 0 NEGATIVE CONTROL (test code = 17295-0) Passed POSITIVE CONTROL (test code = 21701-7) Passed LYNDSAY (test code = LYNDSAY) [id number] [facility][id number] 18:35:00* Test Item Value Reference Range Interpretation Comme [facility] T-SPOT.TB (test code = 59716-8) Negative SeeBelow Normal Value: Ne gativeA negative [...] CORRECTED FOR NEG CONTROL (test code = 57299-4) 0 NEGATIVE CONTROL (test code = 92463-9) Passed POSITIVE CONTROL (test code = 15757-1) Passed LYNDSAY (test code = LYNDSAY) [id number] [facility][id number] 18:35:00* Test Item Value Reference Range Interpretation Comme nts T-SPOT.TB (test code = 97480-7) Negative SeeBelow Normal Value: Ne gativeA negative [...] CORRECTED FOR NEG CONTROL (test code = 07348-4) 0 NEGATIVE CONTROL (test code = 69903-5) Passed POSITIVE CONTROL (test code = 62256-5) Passed LYNDSAY (test code = LYNDSAY) [id number] [facility][id number] 18:35:00* Test Item Value Reference Range Interpretation Comme nts T-SPOT.TB (test code = 37612-9) Negative SeeBelow Normal Value: Ne gativeA negative [...] CORRECTED FOR NEG CONTROL (test code = 98947-4) 0 NEGATIVE CONTROL (test code = 39646-7) Passed POSITIVE CONTROL (test code = 96295-3) Passed LYNDSAY (test code = LYNDSAY) [id number] [facility][id number] 18:35:00* Test Item Value Reference Range Interpretation Comme nts T-SPOT.TB (test code = 16507-6) Negative SeeBelow Normal Value: Ne gativeA negative [...] CORRECTED FOR NEG CONTROL (test code = 08352-7) 0 NEGATIVE CONTROL (test code = 81730-4) Passed POSITIVE CONTROL (test code = 81534-8) Passed LYNDSAY (test code = LYNDSAY) [id number] [facility][id number] 18:35:00* Test Item Value Reference Range Interpretation Comme nts T-SPOT.TB (test code = 86154-9) Negative SeeBelow Normal Value: Ne gativeA negative [...] CORRECTED FOR NEG CONTROL (test code = 23607-5) 0 NEGATIVE CONTROL (test code = 28545-5) Passed POSITIVE CONTROL (test code = 48801-4) Passed LYNDSAY (test code = LYNDSAY) [id number] [facility][id number] 18:35:00* Test Item Value Reference Range Interpretation Comme nts T-SPOT.TB (test code = 98843-9) Negative SeeBelow Normal Value: Ne gativeA negative [...] CORRECTED FOR NEG CONTROL (test code = 89778-4) 0 NEGATIVE CONTROL (test code = 63897-7) Passed POSITIVE CONTROL (test code = 08626-8) Passed LYNDSAY (test code = LYNDSAY) [id number] [facility][id number] 18:35:00* Test Item Value Reference Range Interpretation Comme nts T-SPOT.TB (test code = 93376-5) Negative SeeBelow Normal Value: Ne gativeA negative [...] CORRECTED FOR NEG CONTROL (test code = 85633-1) 0 NEGATIVE CONTROL (test code = 60260-5) Passed POSITIVE CONTROL (test code = 29914-0) Passed LYNDSAY (test code = LYNDSAY) [id number] [id number] [facility]:35:00* Test Item Value Reference Range Interpretation Comme nts T-SPOT.TB (test code = 45022-6) Negative SeeBelow Normal Value: Ne gativeA negative [...] CORRECTED FOR NEG CONTROL (test code = 18887-6) 0 NEGATIVE CONTROL (test code = 38690-8) Passed POSITIVE CONTROL (test code = 32593-0) Passed LYNDSAY (test code = LYNDSAY) [id number] [facility][id number] 18:35:00* Test Item Value Reference Range Interpretation Comme nts T-SPOT.TB (test code = 58652-5) Negative SeeBelow Normal Value: Ne gativeA negative [...] CORRECTED FOR NEG CONTROL (test code = 79948-6) 0 NEGATIVE CONTROL (test code = 48564-2) Passed POSITIVE CONTROL (test code = 63094-7) Passed LYNDSAY (test code = LYNDSAY) [id number] [facility][id number] 18:35:00* Test Item Value Reference Range Interpretation Comme nts T-SPOT.TB (test code = 48742-8) Negative SeeBelow Normal Value: Ne gativeA negative [...] CORRECTED FOR NEG CONTROL (test code = 45771-1) 0 NEGATIVE CONTROL (test code = 83345-4) Passed POSITIVE CONTROL (test code = 48119-0) Passed LYNDSAY (test code = LYNDSAY) [id number] [facility][id number] 18:35:00* Test Item Value Reference Range Interpretation Comme nts T-SPOT.TB (test code = 11875-7) Negative SeeBelow Normal Value: Ne gativeA negative [...] CORRECTED FOR NEG CONTROL (test code = 27669-9) 0 NEGATIVE CONTROL (test code = 48930-0) Passed POSITIVE CONTROL (test code = 42317-7) Passed LYNDSAY (test code = LYNDSAY) [id number] [facility][id number] 18:35:00* Test Item Value Reference Range Interpretation Comme nts T-SPOT.TB (test code = 88443-0) Negative SeeBelow Normal Value: Ne gativeA negative [...] CORRECTED FOR NEG CONTROL (test code = 79241-0) 0 NEGATIVE CONTROL (test code = 88641-3) Passed POSITIVE CONTROL (test code = 50004-4) Passed LYNDSAY (test code = LYNDSAY) [id number] [facility][id number] 18:35:00* Test Item Value Reference Range Interpretation Comme [facility] T-SPOT.TB (test code = 03270-3) Negative SeeBelow Normal Value: Ne gativeA negative [...] CORRECTED FOR NEG CONTROL (test code = 91425-2) 0 NEGATIVE CONTROL (test code = 05776-0) Passed POSITIVE CONTROL (test code = 47787-3) Passed LYNDSAY (test code = LYNDSAY) [id number] [facility][id number] 18:35:00* Test Item Value Reference Range Interpretation Comme nts T-SPOT.TB (test code = 94915-2) Negative SeeBelow Normal Value: Ne gativeA negative [...] CORRECTED FOR NEG CONTROL (test code = 16012-3) 0 NEGATIVE CONTROL (test code = 75891-5) Passed POSITIVE CONTROL (test code = 21108-5) Passed LYNDSAY (test code = LYNDSAY) [id number] [facility][id number] 18:35:00* Test Item Value Reference Range Interpretation Comme [facility] T-SPOT.TB (test code = 49116-4) Negative SeeBelow Normal Value: Ne gativeA negative [...] CORRECTED FOR NEG CONTROL (test code = 38206-1) 0 NEGATIVE CONTROL (test code = 46119-4) Passed POSITIVE CONTROL (test code = 65501-5) Passed LYNDSAY (test code = LYNDSAY) [id number] [facility][id number] 18:35:00* Test Item Value Reference Range Interpretation Comme nts T-SPOT.TB (test code = 88095-1) Negative SeeBelow Normal Value: Ne gativeA negative [...] CORRECTED FOR NEG CONTROL (test code = 38804-1) 0 NEGATIVE CONTROL (test code = 70448-1) Passed POSITIVE CONTROL (test code = 17767-6) Passed LYNDSAY (test code = LYNDSAY) [id number] [facility][id number] 18:35:00* Test Item Value Reference Range Interpretation Comme nts T-SPOT.TB (test code = 22936-4) Negative SeeBelow Normal Value: Ne gativeA negative [...] CORRECTED FOR NEG CONTROL (test code = 32221-3) 0 NEGATIVE CONTROL (test code = 71190-8) Passed POSITIVE CONTROL (test code = 87836-0) Passed LYNDSAY (test code = LYNDSAY) [id number] [facility][id number] 18:35:00* Test Item Value Reference Range Interpretation Comme nts T-SPOT.TB (test code = 93791-7) Negative SeeBelow Normal Value: Ne gativeA negative [...] CORRECTED FOR NEG CONTROL (test code = 66606-4) 0 NEGATIVE CONTROL (test code = 73852-2) Passed POSITIVE CONTROL (test code = 68944-7) Passed LYNDSAY (test code = LYNDSAY) [id number] [facility][id number] 18:35:00* Test Item Value Reference Range Interpretation Comme nts T-SPOT.TB (test code = 29391-1) Negative SeeBelow Normal Value: Ne gativeA negative [...] CORRECTED FOR NEG CONTROL (test code = 58671-4) 0 NEGATIVE CONTROL (test code = 05755-3) Passed POSITIVE CONTROL (test code = 93895-6) Passed LYNDSAY (test code = LYNDSAY) [id number] [facility][id number] 18:35:00* Test Item Value Reference Range Interpretation Comme nts T-SPOT.TB (test code = 61164-9) Negative SeeBelow Normal Value: Ne gativeA negative [...] CORRECTED FOR NEG CONTROL (test code = 23608-2) 0 NEGATIVE CONTROL (test code = 92184-2) Passed POSITIVE CONTROL (test code = 04589-3) Passed LYNDSAY (test code = LYNDSAY) [id number] [facility][id number] 18:35:00* Test Item Value Reference Range Interpretation Comme nts T-SPOT.TB (test code = 0336351) Negative SeeBelow Normal Value: Ne gativeA negative [...] 20150907) Passed LYNDSAY (test code = LYNDSAY) [id number] [facility][id number] 18:35:00* Test Item Value Reference Range Interpretation Comme nts T-SPOT.TB (test code = 3484198) Negative SeeBelow Normal Value: Ne gativeA negative [...] CORRECTED FOR NEG CONTROL (test code = 6879397) 1 PANEL B SPOT COUNT CORRECTED FOR NEG CONTROL (test code = 20150905) 0 NEGATIVE CONTROL (test code = 5059807) Passed POSITIVE CONTROL (test code = 5258712) Passed LYNDSAY (test code = LYNDSAY) [id number] [facility][id number] 18:35:00* Test Item Value Reference Range Interpretation Comme [facility] T-SPOT.TB (test code = 2688158) Negative SeeBelow Normal Value: Ne gativeA negative [...] CORRECTED FOR NEG CONTROL (test code = 9504152) 1 PANEL B SPOT COUNT CORRECTED FOR NEG CONTROL (test code = 3555406) 0 NEGATIVE CONTROL (test code = 20150906) Passed POSITIVE CONTROL (test code = 4944141) Passed LYNDSAY (test code = LYNDSAY) [id number] [facility][id number] 18:35:00* Test Item Value Reference Range Interpretation Comme nts T-SPOT.TB (test code = 36114-1) Negative SeeBelow Normal Value: Ne gativeA negative [...] CORRECTED FOR NEG CONTROL (test code = 53219-5) 0 NEGATIVE CONTROL (test code = 77617-8) Passed POSITIVE CONTROL (test code = 74056-8) Passed LYNDSAY (test code = LYNDSAY) [id number] 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 Pulmonic Valve Not visualized.[facility] korrew0757-89-85 09:55:41* Test Item Value Reference Range Interpretation Comme nts Result (test code = 6463-4) No MRSA isolated [facility] nbzfld5244-42-00 09:55:41* Test Item Value Reference Range Interpretation Comme nts Result (test code = 6463-4) No MRSA isolated [facility] uvzdqh1217-54-02 09:55:41* Test Item Value Reference Range Interpretation Comme nts Result (test code = 6463-4) No MRSA isolated [facility] gkuurk2375-80-69 09:55:41* Test Item Value Reference Range Interpretation Comme nts Result (test code = 6463-4) No MRSA isolated [facility] ceywpq2366-63-96 09:55:41* Test Item Value Reference Range Interpretation Comme nts Result (test code = 6463-4) No MRSA isolated [facility] pscjiz2609-01-90 09:55:41* Test Item Value Reference Range Interpretation Comme nts Result (test code = 6463-4) No MRSA isolated [facility] wwpirw7663-13-68 09:55:41* Test Item Value Reference Range Interpretation Comme nts Result (test code = 6463-4) No MRSA isolated [facility] zelfyu8796-27-67 09:55:41* Test Item Value Reference Range Interpretation Comme nts Result (test code = 6463-4) No MRSA isolated [facility] pdhsvl1925-97-53 09:55:41* Test Item Value Reference Range Interpretation Comme nts Result (test code = 6463-4) No MRSA isolated [facility] wghgko3025-89-62 09:55:41* Test Item Value Reference Range Interpretation Comme nts Result (test code = 6463-4) No MRSA isolated [facility] subxkt9426-50-80 09:55:41* Test Item Value Reference Range Interpretation Comme nts Result (test code = 6463-4) No MRSA isolated [facility] ekuugo3043-13-10 09:55:41* Test Item Value Reference Range Interpretation Comme nts Result (test code = 6463-4) No MRSA isolated [facility] ekqtks4877-71-60 09:55:41* Test Item Value Reference Range Interpretation Comme nts Result (test code = 6463-4) No MRSA isolated [facility] [id number] 09:55:41* Test Item Value Reference Range Interpretation Comme nts Result (test code = 6463-4) No MRSA isolated [facility] [id number] 09:55:41* Test Item Value Reference Range Interpretation Comme nts Result (test code = 6463-4) No MRSA isolated [facility] liwdti1942-73-27 09:55:41* Test Item Value Reference Range Interpretation Comme nts Result (test code = 6463-4) No MRSA isolated [facility] crwrrw0691-20-76 09:55:41* Test Item Value Reference Range Interpretation Comme nts Result (test code = 6463-4) No MRSA isolated [facility] jyvhhd0301-13-97 09:55:41* Test Item Value Reference Range Interpretation Comme nts Result (test code = 6463-4) No MRSA isolated [facility] [id number] 09:55:41* Test Item Value Reference Range Interpretation Comme nts Result (test code = 6463-4) No MRSA isolated [facility] wbzmoo6967-64-12 09:55:41* Test Item Value Reference Range Interpretation Comme nts Result (test code = 6463-4) No MRSA isolated [facility] bfhaxd5592-00-48 09:55:41* Test Item Value Reference Range Interpretation Comme nts Result (test code = 6463-4) No MRSA isolated [facility] gqwfbf2982-11-54 09:55:41* Test Item Value Reference Range Interpretation Comme nts Result (test code = 6463-4) No MRSA isolated [facility] ynxutf1540-95-89 09:55:41* Test Item Value Reference Range Interpretation Comme nts Result (test code = 6463-4) No MRSA isolated [facility] afmuzw3694-59-41 09:55:41* Test Item Value Reference Range Interpretation Comme nts Result (test code = 6463-4) No MRSA isolated [facility] vblaem8684-81-46 09:55:41* Test Item Value Reference Range Interpretation Comme nts Result (test code = 6463-4) No MRSA isolated [facility] duzraz2512-15-93 09:55:41* Test Item Value Reference Range Interpretation Comme nts Result (test code = 6463-4) No MRSA isolated [facility] lmnnhj6735-23-26 09:55:41* Test Item Value Reference Range Interpretation Comme nts Result (test code = 6463-4) No MRSA isolated [facility] wonzgw1961-98-67 09:55:41* Test Item Value Reference Range Interpretation Comme nts Result (test code = 6463-4) No MRSA isolated [facility] shevdo4631-54-54 09:55:41* Test Item Value Reference Range Interpretation Comme nts Result (test code = 6463-4) No MRSA isolated [facility] raxkin5809-36-24 09:55:41* Test Item Value Reference Range Interpretation Comme nts Result (test code = 6463-4) No MRSA isolated [facility] cggnqb4945-01-85 09:55:41* Test Item Value Reference Range Interpretation Comme nts Result (test code = 6463-4) No MRSA isolated [facility] oqpexc3194-07-41 09:55:41* Test Item Value Reference Range Interpretation Comme nts Result (test code = 6463-4) No MRSA isolated [facility] oszpuv9625-37-42 09:55:41* Test Item Value Reference Range Interpretation Comme nts Result (test code = 6463-4) No MRSA isolated [facility] xxwgcx3723-27-87 09:55:41* Test Item Value Reference Range Interpretation Comme nts Result (test code = 6463-4) No MRSA isolated [facility] rbutlg3161-98-29 09:55:41* Test Item Value Reference Range Interpretation Comme nts Result (test code = 6463-4) No MRSA isolated [facility] ibuiff0905-97-86 09:55:41* Test Item Value Reference Range Interpretation Comme nts Result (test code = 6463-4) No MRSA isolated [facility] htcwwz7969-38-73 09:55:41* Test Item Value Reference Range Interpretation Comme nts Result (test code = 6463-4) No MRSA isolated [facility] zvudvy4912-78-84 09:55:41* Test Item Value Reference Range Interpretation Comme nts Result (test code = 6463-4) No MRSA isolated [facility] xqmtpx9714-83-33 09:55:41* Test Item Value Reference Range Interpretation Comme nts Result (test code = 6463-4) No MRSA isolated [facility] yoyxel0191-14-71 09:55:41* Test Item Value Reference Range Interpretation Comme nts Result (test code = 6463-4) No MRSA isolated [facility] drifur6121-58-91 09:55:41* Test Item Value Reference Range Interpretation Comme nts Result (test code = 6463-4) No MRSA isolated [facility] rjymvt0704-37-28 09:55:41* Test Item Value Reference Range Interpretation Comme nts Result (test code = 6463-4) No MRSA isolated [facility] yqwumf3587-70-02 09:55:41* Test Item Value Reference Range Interpretation Comme nts Result (test code = 6463-4) No [facility] kohhal3218-53-06 09:55:41* Test Item Value Reference Range Interpretation Comme nts Result (test code = 6463-4) No [facility] LFDAHY5756-01-80 09:55:41* Test Item Value Reference Range Interpretation Comme nts CULTURE (BEAKER) (test code = 1095) No MRSA isolated CRYPTOCOCCAL [id number] 15:50:36* Test Item Value Reference Range Interpretation Comme nts CRYPTOCOCCAL ANTIGEN, SERUM (BEAKER) (test code = 1828) Negative Negative, Interference SPUTUM CULTURE + GRAM [id number] 10:30:11* Test Item Value Reference Range Interpretation [...] GRAM STAIN RESULT (BEAKER) (test code = 398610) 10-15 epithelial cells GRAM STAIN RESULT (BEAKER) (test code = 269231) 2+ gram positive cocci in chains and pairs GRAM STAIN RESULT (BEAKER) (test code = 124462) 1+ gram negative rods GRAM STAIN RESULT (BEAKER) (test code = 879977) 1+ yeast 2+ Normal respiratory rebel presentVANCOMYCIN LEVEL, [id number] 06:41:26* Test Item Value Reference Range Interpretation Comme nts VANCOMYCIN TROUGH (BEAKER) ( test code = 522) 17.0 ug/mL 10.0-20.0 [employer] Instructor ID - ADMINECHO W CONTRAST & [id number] 13:44:03Transthoracic Echocardiography Report (TTE) Demographics Patient Name YUE LAWS Date of Study 06/14/2023 ESTELLE Gender Female Visit Number [id number] Race Room Number 1055 Number Date of 1970 Referring Aydee Go MD Physician Age 53 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 Naval HospitalHEMOGLOBIN A1C 2023-06-14 09:26:42* Test Item Value Reference Range Interpretation Comme nts HEMOGLOBIN A1C ELECTROPHORESIS ([employer]) (test code = 3811) 6.7 % See_Comment [...] 5.7- 6.4% indicates increased risk for diabetes (prediabetes)."[employer] Instructor ID - ADMOperator ID - ADMECG 12 [id number] 09:06:12Ventricular Rate 97 BPMAtrial Rate 97 BPMP-R Interval 146 msQRS Duration 96 msQ-T Interval 378 msQTC Calculation(Bazett) 480 msP [place] 68 degreesR [place] 107 degreesT [place] 18 degrees Suspect arm leadreversal, interpretation assumes no reversalNormal sinus rhythmRightward axisNonspecific T wave abnormalityAbnormal ECGWhen compared with ECG of 30-MAR-2023 13:06,QRS axis Shifted rightConfirmed by Luis Lopez ([id number]) on 06/14/2023 9:06:07 [facility] lwpq9518-97-31 09:06:12Ventricular Rate 97 BPMAtrial Rate 97 BPMP-R Interval 146 msQRS Duration 96 msQ-T Interval 378 msQTC Calculation(Bazett) 480 msP [place] 68 degreesR [place] 107 degreesT [place] 18 degrees Suspect arm leadreversal, interpretation assumes no reversalNormal sinus rhythmRightward axisNonspecific T wave abno rmalityAbnormal ECGWhen compared with ECG of 30-MAR-2023 13:06,QRS axis Shifted rightConfirmed by Luis Lopez ([id number]) on 06/14/2023 9:06:07 [facility] HospitalBASIC METABOLIC OELUA9800-05-77 04:48:18* Test Item Value Reference Range Interpretation [...] GFR is not applicable for dialysis patients [employer] Instructor ID - ADMINCBC (HEMOGRAM ONLY)2023-06-14 04:22:50* Test [...] 413) 0 /100 WBC 0-0 Strep pneumoniae iecclod2655-92-84 23:34:41* Test Item Value Reference Range Interpretation Comme nts Strep pneumoniae Antigen (test code = 91147-5) Presumptive negative for pneumococcal pneumonia - see [...] the test. Lab Interpretation (test code = 39743-6) [facility] kqrogcx5003-83-30 23:34:41* Test Item Value Reference Range Interpretation Comme nts Strep pneumoniae Antigen (test code = 54132-2) Presumptive negative for pneumococcal pneumonia - see [...] the test. Lab Interpretation (test code = 00508-9) [facility] eprsxyj2896-38-80 23:34:41* Test Item Value Reference Range Interpretation Comme nts Strep pneumoniae Antigen (test code = 39616-4) Presumptive negative for pneumococcal pneumonia - see [...] the test. Lab Interpretation (test code = 73068-3) [facility] emjejoz6778-95-97 23:34:41* Test Item Value Reference Range Interpretation Comme nts Strep pneumoniae Antigen (test code = 09710-0) Presumptive negative for pneumococcal pneumonia - see [...] the test. Lab Interpretation (test code = 65260-7) [facility] kkqiiip7982-99-24 23:34:41* Test Item Value Reference Range Interpretation Comme nts Strep pneumoniae Antigen (test code = 24996-0) Presumptive negative for pneumococcal pneumonia - see [...] the test. Lab Interpretation (test code = 28045-5) [facility] juojvaw2913-06-41 23:34:41* Test Item Value Reference Range Interpretation Comme nts Strep pneumoniae Antigen (test code = 13640-4) Presumptive negative for pneumococcal pneumonia - see [...] the test. Lab Interpretation (test code = 67317-6) [facility] iqlgmnp9406-46-66 23:34:41* Test Item Value Reference Range Interpretation Comme nts Strep pneumoniae Antigen (test code = 81071-5) Presumptive negative for pneumococcal pneumonia - see [...] the test. Lab Interpretation (test code = 30399-1) [facility] zfqwzhy5449-36-15 23:34:41* Test Item Value Reference Range Interpretation Comme nts Strep pneumoniae Antigen (test code = 65852-4) Presumptive negative for pneumococcal pneumonia - see [...] the test. Lab Interpretation (test code = 97781-5) [facility] qqybmiw6962-08-29 23:34:41* Test Item Value Reference Range Interpretation Comme nts Strep pneumoniae Antigen (test code = 11079-1) Presumptive negative for pneumococcal pneumonia - see [...] the test. Lab Interpretation (test code = 41906-8) [facility] ngzwbtr1643-37-63 23:34:41* Test Item Value Reference Range Interpretation Comme nts Strep pneumoniae Antigen (test code = 12664-1) Presumptive negative for pneumococcal pneumonia - see [...] the test. Lab Interpretation (test code = 97454-9) [facility] gkgtrpy2844-23-98 23:34:41* Test Item Value Reference Range Interpretation Comme nts Strep pneumoniae Antigen (test code = 87944-2) Presumptive negative for pneumococcal pneumonia - see [...] the test. Lab Interpretation (test code = 48267-3) [facility] uimstgl4348-32-52 23:34:41* Test Item Value Reference Range Interpretation Comme nts Strep pneumoniae Antigen (test code = 25277-4) Presumptive negative for pneumococcal pneumonia - see [...] the test. Lab Interpretation (test code = 31047-9) [facility] tbmnsbb7218-61-97 23:34:41* Test Item Value Reference Range Interpretation Comme nts Strep pneumoniae Antigen (test code = 86268-0) Presumptive negative for pneumococcal pneumonia - see [...] the test. Lab Interpretation (test code = 87215-0) [facility] fytlewl8044-69-00 23:34:41* Test Item Value Reference Range Interpretation Comme nts Strep pneumoniae Antigen (test code = 50641-9) Presumptive negative for pneumococcal pneumonia - see [...] the test. Lab Interpretation (test code = 84708-9) [facility] sjrydsh9025-22-47 23:34:41* Test Item Value Reference Range Interpretation Comme nts Strep pneumoniae Antigen (test code = 39333-2) Presumptive negative for pneumococcal pneumonia - see [...] the test. Lab Interpretation (test code = 57222-9) [facility] xmwqyay7454-76-78 23:34:41* Test Item Value Reference Range Interpretation Comme nts Strep pneumoniae Antigen (test code = 87910-5) Presumptive negative for pneumococcal pneumonia - see [...] the test. Lab Interpretation (test code = 70661-7) [facility] pdnqtpp9245-16-61 23:34:41* Test Item Value Reference Range Interpretation Comme nts Strep pneumoniae Antigen (test code = 20167-9) Presumptive negative for pneumococcal pneumonia - see [...] the test. Lab Interpretation (test code = 66021-7) [facility] aiajnci7540-16-34 23:34:41* Test Item Value Reference Range Interpretation Comme nts Strep pneumoniae Antigen (test code = 44500-5) Presumptive negative for pneumococcal pneumonia - see [...] the test. Lab Interpretation (test code = 05040-4) [facility] haniwco9919-93-27 23:34:41* Test Item Value Reference Range Interpretation Comme nts Strep pneumoniae Antigen (test code = 73628-1) Presumptive negative for pneumococcal pneumonia - see [...] the test. Lab Interpretation (test code = 71677-6) [facility] shceyfe8041-34-45 23:34:41* Test Item Value Reference Range Interpretation Comme nts Strep pneumoniae Antigen (test code = 11320-1) Presumptive negative for pneumococcal pneumonia - see [...] the test. Lab Interpretation (test code = 87252-0) [facility] vrtuvfg4579-24-06 23:34:41* Test Item Value Reference Range Interpretation Comme nts Strep pneumoniae Antigen (test code = 89414-7) Presumptive negative for pneumococcal pneumonia - see [...] the test. Lab Interpretation (test code = 73376-2) [facility] vneueqp6772-43-31 23:34:41* Test Item Value Reference Range Interpretation Comme nts Strep pneumoniae Antigen (test code = 64090-5) Presumptive negative for pneumococcal pneumonia - see [...] the test. Lab Interpretation (test code = 02440-7) [facility] [id number] 23:34:41* Test Item Value Reference Range Interpretation Comme nts Strep pneumoniae Antigen (test code = 07968-6) Presumptive negative for pneumococcal pneumonia - see [...] the test. Lab Interpretation (test code = 67554-7) [facility] [id number] 23:34:41* Test Item Value Reference Range Interpretation Comme nts Strep pneumoniae Antigen (test code = 06456-5) Presumptive negative for pneumococcal pneumonia - see [...] the test. Lab Interpretation (test code = 59462-9) [facility] [id number] 23:34:41* Test Item Value Reference Range Interpretation Comme nts Strep pneumoniae Antigen (test code = 71536-2) Presumptive negative for pneumococcal pneumonia - see [...] the test. Lab Interpretation (test code = 39154-2) Normal [facility] [id number] 23:34:41* Test Item Value Reference Range Interpretation Comme nts Strep pneumoniae Antigen (test code = 42981-5) Presumptive negative for pneumococcal pneumonia - see [...] the test. Lab Interpretation (test code = 49600-5) Normal [facility] [id number] 23:34:41* Test Item Value Reference Range Interpretation Comme nts Strep pneumoniae Antigen (test code = 73874-4) Presumptive negative for pneumococcal pneumonia - see [...] the test. Lab Interpretation (test code = 87066-6) Normal [facility] [id number] 23:34:41* Test Item Value Reference Range Interpretation Comme nts Strep pneumoniae Antigen (test code = 60536-1) Presumptive negative for pneumococcal pneumonia - see [...] the test. Lab Interpretation (test code = 71935-5) [facility] [id number] 23:34:41* Test Item Value Reference Range Interpretation Comme nts Strep pneumoniae Antigen (test code = 04751-1) Presumptive negative for pneumococcal pneumonia - see [...] the test. Lab Interpretation (test code = 67578-0) [facility] [id number] 23:34:41* Test Item Value Reference Range Interpretation Comme nts Strep pneumoniae Antigen (test code = 89673-0) Presumptive negative for pneumococcal pneumonia - see [...] the test. Lab Interpretation (test code = 00455-5) [facility] [id number] 23:34:41* Test Item Value Reference Range Interpretation Comme nts Strep pneumoniae Antigen (test code = 39503-8) Presumptive negative for pneumococcal pneumonia - see [...] the test. Lab Interpretation (test code = 34269-7) [facility] [id number] 23:34:41* Test Item Value Reference Range Interpretation Comme nts Strep pneumoniae Antigen (test code = 73678-8) Presumptive negative for pneumococcal pneumonia - see [...] the test. Lab Interpretation (test code = 00017-2) [facility] [id number] 23:34:41* Test Item Value Reference Range Interpretation Comme nts Strep pneumoniae Antigen (test code = 24315-0) Presumptive negative for pneumococcal pneumonia - see [...] the test. Lab Interpretation (test code = 59728-2) [facility] [id number] 23:34:41* Test Item Value Reference Range Interpretation Comme nts Strep pneumoniae Antigen (test code = 98305-5) Presumptive negative for pneumococcal pneumonia - see [...] the test. Lab Interpretation (test code = 82549-0) [facility] [id number] 23:34:41* Test Item Value Reference Range Interpretation Comme nts Strep pneumoniae Antigen (test code = 68488-0) Presumptive negative for pneumococcal pneumonia - see [...] the test. Lab Interpretation (test code = 95550-4) [facility] [id number] 23:34:41* Test Item Value Reference Range Interpretation Comme nts Strep pneumoniae Antigen (test code = 52240-9) Presumptive negative for pneumococcal pneumonia - see [...] the test. Lab Interpretation (test code = 75371-3) [facility] [id number] 23:34:41* Test Item Value Reference Range Interpretation Comme nts Strep pneumoniae Antigen (test code = 34154-9) Presumptive negative for pneumococcal pneumonia - see [...] the test. Lab Interpretation (test code = 95959-1) [facility] [id number] 23:34:41* Test Item Value Reference Range Interpretation Comme nts Strep pneumoniae Antigen (test code = 88954-5) Presumptive negative for pneumococcal pneumonia - see [...] the test. Lab Interpretation (test code = 27658-4) [facility] [id number] 23:34:41* Test Item Value Reference Range Interpretation Comme nts Strep pneumoniae Antigen (test code = 08808-1) Presumptive negative for pneumococcal pneumonia - see [...] the test. Lab Interpretation (test code = 77428-0) [facility] [id number] 23:34:41* Test Item Value Reference Range Interpretation Comme nts Strep pneumoniae Antigen (test code = 11148-8) Presumptive negative for pneumococcal pneumonia - see [...] the test. Lab Interpretation (test code = 74144-7) [facility] [id number] 23:34:41* Test Item Value Reference Range Interpretation Comme nts Strep pneumoniae Antigen (test code = 26408-6) Presumptive negative for pneumococcal pneumonia - see [...] the test. Lab Interpretation (test code = 23874-4) [facility] [id number] 23:34:41* Test Item Value Reference Range Interpretation Comme nts Strep pneumoniae Antigen (test code = 53243-2) Presumptive negative for pneumococcal pneumonia - see [...] the test. Lab Interpretation (test code = 87846-8) [facility] [id number] 23:34:41* Test Item Value Reference Range Interpretation Comme nts Strep pneumoniae Antigen (test code = 47560-5) Presumptive negative for pneumococcal pneumonia - see [...] the test. Lab Interpretation (test code = 45724-6) [facility] [id number] 23:34:41* Test Item Value Reference Range Interpretation Comme nts Strep pneumoniae Antigen (test code = 98381-3) Presumptive negative for pneumococcal pneumonia - see [...] the test. Lab Interpretation (test code = 68480-4) [facility] PNEUMONIAE [id number] 23:34:41* Test Item Value Reference Range Interpretation [...] detection limit of the test. Legionella antigen, [id number] 23:29:07* Test Item Value Reference Range Interpretation Comme [facility] Legionella Urine Antigen (test code = 67086-3) Negative - see comment Negative Negative for L. pneumophila serogroup 1 antigen, suggesting no recent or current infection with this serogroup. Legionellosis cannot be ruled out since other serogroups and species may cause disease. Lab Interpretation (test code = 77816-7) [facility] [id number] 23:29:07* Test Item Value Reference Range Interpretation Comme nts Legionella Urine Antigen (test code = 00496-6) Negative - see comment Negative Negative for L. pneumophila serogroup 1 antigen, suggesting no recent or current infection with this serogroup. Legionellosis cannot be ruled out since other serogroups and species may cause disease. Lab Interpretation (test code = 74568-6) [facility], [id number] 23:29:07* Test Item Value Reference Range Interpretation Comme nts Legionella Urine Antigen (test code = 75329-9) Negative - see comment Negative Negative for L. pneumophila serogroup 1 antigen, suggesting no recent or current infection with this serogroup. Legionellosis cannot be ruled out since other serogroups and species may cause disease. Lab Interpretation (test code = 88813-9) [facility], [id number] 23:29:07* Test Item Value Reference Range Interpretation Comme [facility] Legionella Urine Antigen (test code = 79729-5) Negative - see comment Negative Negative for L. pneumophila serogroup 1 antigen, suggesting no recent or current infection with this serogroup. Legionellosis cannot be ruled out since other serogroups and species may cause disease. Lab Interpretation (test code = 58405-0) [facility], [id number] 23:29:07* Test Item Value Reference Range Interpretation Comme nts Legionella Urine Antigen (test code = 96165-1) Negative - see comment Negative Negative for L. pneumophila serogroup 1 antigen, suggesting no recent or current infection with this serogroup. Legionellosis cannot be ruled out since other serogroups and species may cause disease. Lab Interpretation (test code = 55262-2) [facility], [id number] 23:29:07* Test Item Value Reference Range Interpretation Comme [facility] Legionella Urine Antigen (test code = 00226-3) Negative - see comment Negative Negative for L. pneumophila serogroup 1 antigen, suggesting no recent or current infection with this serogroup. Legionellosis cannot be ruled out since other serogroups and species may cause disease. Lab Interpretation (test code = 75024-7) [facility], [id number] 23:29:07* Test Item Value Reference Range Interpretation Comme [facility] Legionella Urine Antigen (test code = 28837-9) Negative - see comment Negative Negative for L. pneumophila serogroup 1 antigen, suggesting no recent or current infection with this serogroup. Legionellosis cannot be ruled out since other serogroups and species may cause disease. Lab Interpretation (test code = 16448-3) [facility], [id number] 23:29:07* Test Item Value Reference Range Interpretation Comme [facility] Legionella Urine Antigen (test code = 84026-0) Negative - see comment Negative Negative for L. pneumophila serogroup 1 antigen, suggesting no recent or current infection with this serogroup. Legionellosis cannot be ruled out since other serogroups and species may cause disease. Lab Interpretation (test code = 96160-1) [facility], [id number] 23:29:07* Test Item Value Reference Range Interpretation Comme [facility] Legionella Urine Antigen (test code = 98250-1) Negative - see comment Negative Negative for L. pneumophila serogroup 1 antigen, suggesting no recent or current infection with this serogroup. Legionellosis cannot be ruled out since other serogroups and species may cause disease. Lab Interpretation (test code = 52177-0) [facility], [id number] 23:29:07* Test Item Value Reference Range Interpretation Comme nts Legionella Urine Antigen (test code = 49095-2) Negative - see comment Negative Negative for L. pneumophila serogroup 1 antigen, suggesting no recent or current infection with this serogroup. Legionellosis cannot be ruled out since other serogroups and species may cause disease. Lab Interpretation (test code = 99268-7) [facility], [id number] 23:29:07* Test Item Value Reference Range Interpretation Comme [facility] Legionella Urine Antigen (test code = 58616-8) Negative - see comment Negative Negative for L. pneumophila serogroup 1 antigen, suggesting no recent or current infection with this serogroup. Legionellosis cannot be ruled out since other serogroups and species may cause disease. Lab Interpretation (test code = 12978-1) [facility], [id number] 23:29:07* Test Item Value Reference Range Interpretation Comme [facility] Legionella Urine Antigen (test code = 92049-0) Negative - see comment Negative Negative for L. pneumophila serogroup 1 antigen, suggesting no recent or current infection with this serogroup. Legionellosis cannot be ruled out since other serogroups and species may cause disease. Lab Interpretation (test code = 34615-8) [facility], [id number] 23:29:07* Test Item Value Reference Range Interpretation Comme [facility] Legionella Urine Antigen (test code = 59062-0) Negative - see comment Negative Negative for L. pneumophila serogroup 1 antigen, suggesting no recent or current infection with this serogroup. Legionellosis cannot be ruled out since other serogroups and species may cause disease. Lab Interpretation (test code = 59718-1) [facility], [id number] 23:29:07* Test Item Value Reference Range Interpretation Comme [facility] Legionella Urine Antigen (test code = 58234-3) Negative - see comment Negative Negative for L. pneumophila serogroup 1 antigen, suggesting no recent or current infection with this serogroup. Legionellosis cannot be ruled out since other serogroups and species may cause disease. Lab Interpretation (test code = 72403-3) [facility], [id number] 23:29:07* Test Item Value Reference Range Interpretation Comme nts Legionella Urine Antigen (test code = 74026-6) Negative - see comment Negative Negative for L. pneumophila serogroup 1 antigen, suggesting no recent or current infection with this serogroup. Legionellosis cannot be ruled out since other serogroups and species may cause disease. Lab Interpretation (test code = 44852-1) [facility], [id number] 23:29:07* Test Item Value Reference Range Interpretation Comme [facility] Legionella Urine Antigen (test code = 88093-0) Negative - see comment Negative Negative for L. pneumophila serogroup 1 antigen, suggesting no recent or current infection with this serogroup. Legionellosis cannot be ruled out since other serogroups and species may cause disease. Lab Interpretation (test code = 19460-8) [facility], [id number] 23:29:07* Test Item Value Reference Range Interpretation Comme [facility] Legionella Urine Antigen (test code = 98621-4) Negative - see comment Negative Negative for L. pneumophila serogroup 1 antigen, suggesting no recent or current infection with this serogroup. Legionellosis cannot be ruled out since other serogroups and species may cause disease. Lab Interpretation (test code = 71399-8) [facility], [id number] 23:29:07* Test Item Value Reference Range Interpretation Comme [facility] Legionella Urine Antigen (test code = 12042-0) Negative - see comment Negative Negative for L. pneumophila serogroup 1 antigen, suggesting no recent or current infection with this serogroup. Legionellosis cannot be ruled out since other serogroups and species may cause disease. Lab Interpretation (test code = 55670-0) [facility], [id number] 23:29:07* Test Item Value Reference Range Interpretation Comme [facility] Legionella Urine Antigen (test code = 02497-7) Negative - see comment Negative Negative for L. pneumophila serogroup 1 antigen, suggesting no recent or current infection with this serogroup. Legionellosis cannot be ruled out since other serogroups and species may cause disease. Lab Interpretation (test code = 88119-2) [facility], [id number] 23:29:07* Test Item Value Reference Range Interpretation Comme nts Legionella Urine Antigen (test code = 09830-3) Negative - see comment Negative Negative for L. pneumophila serogroup 1 antigen, suggesting no recent or current infection with this serogroup. Legionellosis cannot be ruled out since other serogroups and species may cause disease. Lab Interpretation (test code = 61114-3) [facility], [id number] 23:29:07* Test Item Value Reference Range Interpretation Comme [facility] Legionella Urine Antigen (test code = 22362-5) Negative - see comment Negative Negative for L. pneumophila serogroup 1 antigen, suggesting no recent or current infection with this serogroup. Legionellosis cannot be ruled out since other serogroups and species may cause disease. Lab Interpretation (test code = 77667-2) [facility], [id number] 23:29:07* Test Item Value Reference Range Interpretation Comme [facility] Legionella Urine Antigen (test code = 06946-0) Negative - see comment Negative Negative for L. pneumophila serogroup 1 antigen, suggesting no recent or current infection with this serogroup. Legionellosis cannot be ruled out since other serogroups and species may cause disease. Lab Interpretation (test code = 83198-9) [facility], [id number] 23:29:07* Test Item Value Reference Range Interpretation Comme [facility] Legionella Urine Antigen (test code = 12011-4) Negative - see comment Negative Negative for L. pneumophila serogroup 1 antigen, suggesting no recent or current infection with this serogroup. Legionellosis cannot be ruled out since other serogroups and species may cause disease. Lab Interpretation (test code = 59062-8) [facility], [id number] 23:29:07* Test Item Value Reference Range Interpretation Comme [facility] Legionella Urine Antigen (test code = 12757-0) Negative - see comment Negative Negative for L. pneumophila serogroup 1 antigen, suggesting no recent or current infection with this serogroup. Legionellosis cannot be ruled out since other serogroups and species may cause disease. Lab Interpretation (test code = 34043-5) [facility], [id number] 23:29:07* Test Item Value Reference Range Interpretation Comme nts Legionella Urine Antigen (test code = 24295-7) Negative - see comment Negative Negative for L. pneumophila serogroup 1 antigen, suggesting no recent or current infection with this serogroup. Legionellosis cannot be ruled out since other serogroups and species may cause disease. Lab Interpretation (test code = 38502-0) [facility], [id number] 23:29:07* Test Item Value Reference Range Interpretation Comme [facility] Legionella Urine Antigen (test code = 22303-4) Negative - see comment Negative Negative for L. pneumophila serogroup 1 antigen, suggesting no recent or current infection with this serogroup. Legionellosis cannot be ruled out since other serogroups and species may cause disease. Lab Interpretation (test code = 35460-8) [facility], [id number] 23:29:07* Test Item Value Reference Range Interpretation Comme [facility] Legionella Urine Antigen (test code = 98050-0) Negative - see comment Negative Negative for L. pneumophila serogroup 1 antigen, suggesting no recent or current infection with this serogroup. Legionellosis cannot be ruled out since other serogroups and species may cause disease. Lab Interpretation (test code = 16670-1) [facility], [id number] 23:29:07* Test Item Value Reference Range Interpretation Comme [facility] Legionella Urine Antigen (test code = 87117-8) Negative - see comment Negative Negative for L. pneumophila serogroup 1 antigen, suggesting no recent or current infection with this serogroup. Legionellosis cannot be ruled out since other serogroups and species may cause disease. Lab Interpretation (test code = 96580-0) [facility], [id number] 23:29:07* Test Item Value Reference Range Interpretation Comme [facility] Legionella Urine Antigen (test code = 34960-7) Negative - see comment Negative Negative for L. pneumophila serogroup 1 antigen, suggesting no recent or current infection with this serogroup. Legionellosis cannot be ruled out since other serogroups and species may cause disease. Lab Interpretation (test code = 90926-6) [facility], [id number] 23:29:07* Test Item Value Reference Range Interpretation Comme nts Legionella Urine Antigen (test code = 18742-6) Negative - see comment Negative Negative for L. pneumophila serogroup 1 antigen, suggesting no recent or current infection with this serogroup. Legionellosis cannot be ruled out since other serogroups and species may cause disease. Lab Interpretation (test code = 10958-5) [facility], [id number] 23:29:07* Test Item Value Reference Range Interpretation Comme [facility] Legionella Urine Antigen (test code = 21890-9) Negative - see comment Negative Negative for L. pneumophila serogroup 1 antigen, suggesting no recent or current infection with this serogroup. Legionellosis cannot be ruled out since other serogroups and species may cause disease. Lab Interpretation (test code = 00989-7) [facility], [id number] 23:29:07* Test Item Value Reference Range Interpretation Comme [facility] Legionella Urine Antigen (test code = 69700-1) Negative - see comment Negative Negative for L. pneumophila serogroup 1 antigen, suggesting no recent or current infection with this serogroup. Legionellosis cannot be ruled out since other serogroups and species may cause disease. Lab Interpretation (test code = 52696-8) [facility], [id number] 23:29:07* Test Item Value Reference Range Interpretation Comme [facility] Legionella Urine Antigen (test code = 79774-9) Negative - see comment Negative Negative for L. pneumophila serogroup 1 antigen, suggesting no recent or current infection with this serogroup. Legionellosis cannot be ruled out since other serogroups and species may cause disease. Lab Interpretation (test code = 79045-6) [facility], [id number] 23:29:07* Test Item Value Reference Range Interpretation Comme [facility] Legionella Urine Antigen (test code = 17883-0) Negative - see comment Negative Negative for L. pneumophila serogroup 1 antigen, suggesting no recent or current infection with this serogroup. Legionellosis cannot be ruled out since other serogroups and species may cause disease. Lab Interpretation (test code = 11966-2) [facility], [id number] 23:29:07* Test Item Value Reference Range Interpretation Comme nts Legionella Urine Antigen (test code = 86755-9) Negative - see comment Negative Negative for L. pneumophila serogroup 1 antigen, suggesting no recent or current infection with this serogroup. Legionellosis cannot be ruled out since other serogroups and species may cause disease. Lab Interpretation (test code = 46377-3) [facility], [id number] 23:29:07* Test Item Value Reference Range Interpretation Comme [facility] Legionella Urine Antigen (test code = 29755-5) Negative - see comment Negative Negative for L. pneumophila serogroup 1 antigen, suggesting no recent or current infection with this serogroup. Legionellosis cannot be ruled out since other serogroups and species may cause disease. Lab Interpretation (test code = 64779-6) [facility], [id number] 23:29:07* Test Item Value Reference Range Interpretation Comme [facility] Legionella Urine Antigen (test code = 30778-0) Negative - see comment Negative Negative for L. pneumophila serogroup 1 antigen, suggesting no recent or current infection with this serogroup. Legionellosis cannot be ruled out since other serogroups and species may cause disease. Lab Interpretation (test code = 21679-9) [facility], [id number] 23:29:07* Test Item Value Reference Range Interpretation Comme [facility] Legionella Urine Antigen (test code = 37027-3) Negative - see comment Negative Negative for L. pneumophila serogroup 1 antigen, suggesting no recent or current infection with this serogroup. Legionellosis cannot be ruled out since other serogroups and species may cause disease. Lab Interpretation (test code = 18952-5) Normal [facility] Hospital[facility]ion[facility] antigen, [id number] 23:29:07* Test Item Value Reference Range Interpretation Comme [facility] Legionella Urine Antigen (test code = 87121-1) Negative - see comment Negative Negative for L. pneumophila serogroup 1 antigen, suggesting no recent or current infection with this serogroup. Legionellosis cannot be ruled out since other serogroups and species may cause disease. Lab Interpretation (test code = 78100-6) Normal [facility] antigen, [id number] 23:29:07* Test Item Value Reference Range Interpretation Comme nts Legionella Urine Antigen (test code = 70697-6) Negative - see comment Negative Negative for L. pneumophila serogroup 1 antigen, suggesting no recent or current infection with this serogroup. Legionellosis cannot be ruled out since other serogroups and species may cause disease. Lab Interpretation (test code = 05951-6) Normal [facility] antigen, [id number] 23:29:07* Test Item Value Reference Range Interpretation Comme [facility] Legionella Urine Antigen (test code = 38084-9) Negative - see comment Negative Negative for L. pneumophila serogroup 1 antigen, suggesting no recent or current infection with this serogroup. Legionellosis cannot be ruled out since other serogroups and species may cause disease. Lab Interpretation (test code = 57235-0) Normal [facility] antigen, [id number] 23:29:07* Test Item Value Reference Range Interpretation Comme [facility] Legionella Urine Antigen (test code = 22107-1) Negative - see comment Negative Negative for L. pneumophila serogroup 1 antigen, suggesting no recent or current infection with this serogroup. Legionellosis cannot be ruled out since other serogroups and species may cause disease. Lab Interpretation (test code = 79208-6) Normal [facility] antigen, [id number] 23:29:07* Test Item Value Reference Range Interpretation Comme [facility] Legionella Urine Antigen (test code = 54756-3) Negative - see comment Negative Negative for L. pneumophila serogroup 1 antigen, suggesting no recent or current infection with this serogroup. Legionellosis cannot be ruled out since other serogroups and species may cause disease. Lab Interpretation (test code = 42446-3) Normal [facility] antigen, [id number] 23:29:07* Test Item Value Reference Range Interpretation Comme nts Legionella Urine Antigen (test code = 57644-5) Negative - see comment Negative Negative for L. pneumophila serogroup 1 antigen, suggesting no recent or current infection with this serogroup. Legionellosis cannot be ruled out since other serogroups and species may cause disease. Lab Interpretation (test code = 54132-5) Normal [facility], [id number] 23:29:07* Test Item Value Reference Range Interpretation Comme nts L. PNEUMOPHILA SEROGP 1 UR AG (BEAKER) (test code = 1156) Negative - see comment Negative Negative for L. pneumophila serogroup 1 antigen, suggesting no recent or current infection with this serogroup. Legionellosis cannot be ruled out since other serogroups and species may cause disease. 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 Dorsal paraspinal musculature K0hbsysvfpmsnwje. Postcontrast imaging demonstrates mild peripheralenhancement of the dorsal paraspinal fluid collection. Left adrenalgland 2.9 cm nodule.[facility] HospitalMR [facility] WITH & WITHOUT IV [id number] 14:53:29[facility] 1970 Sex: FMR [...] 1.7 x 1.7 cm. Dorsal paraspinal musculature O3zrlkudmjgwrier. Postcontrast imaging demonstrates mild peripheralenhancement of the [...] Signed By: Ryan Buckley06/13/2023 14:55 CDTWorkstation Name: [id number] KINASE (CK)2023-06-13 11:54:02* Test Item Value Reference Range Interpretation Comme nts CREATINE KINASE TOTAL (BEAKE R) (test code = 380) 43 U/L 29-200 [employer] Instructor ID - ADMINCOMPREHENSIVE METABOLIC [id number] 06:48:22* Test Item Value Reference Range Interpretation [...] GFR is not applicable for dialysis patients [employer] Tool [employer] Instructor ID - ADMINPROTHROMBIN TIME/[id number] 06:40:01* Test Item Value Reference Range Interpretation [...] code = 2801) 1.70 % 0.00-1.00 H [id number] 05:26:09* Test Item Value Reference Range Interpretation Comme nts MAGNESIUM (BEAKER) (test cod e = 627) 2.0 mg/dL 1.6-2.6 [employer] Instructor ID - [id number] 05:26:09* Test Item Value Reference Range Interpretation Comme nts PHOSPHORUS (BEAKER) (test co de = 604) 3.5 mg/dL 2.3-4.7 [employer] Instructor ID - ADMINBASIC METABOLIC [id number] 05:26:08* Test Item Value Reference Range Interpretation [...] GFR is not applicable for dialysis patients [employer] Instructor ID - ADMINCBC W/PLT COUNT & AUTO [id number] 05:11:15* Test Item Value Reference Range Interpretation [...] 0.70 % 0.00-1.00 XR spine lumbar 1 [id number] 10:32:20XR SPINE LUMBAR 1 VIEW CLINICAL INDICATION: L3-4 LAMINECTOMY COMPARISON: NoneCH[facility] HospitalXR SPINE LUMBAR 1 [id number] 10:32:20 [facility] 1970 Sex: FXR SPINE LUMBAR 1 VIEWCLINICAL INDICATION: L3-4 LAMINECTOMYCOMPARISON: NoneIMPRESSION:A single lateral view of the lumbar spine is obtained intraoperatively.The posterior approach surgical instrument is seen at the L3-L4 level,inferior to the L3 spinous process. Results were communicated to , who concurred with the above findings. Electronically Signed By: Maxim Ramos08/01/2022 10:34 CDTWo rkstation Name: [id number] SPINE LUMBAR 1 [id number] 10:29:18 [facility] : 1970 Sex: FCLINICAL [...] Signed By: Maxim Ramos08/01/2022 10:31 CDTWorkstation Name: [id number] Screen, [id number] 05:32:52* Test Item Value Reference Range Interpretation Comme nts Preg Test, Ur (test code = 211-) Negative Negative Lab Interpretation (test cod e = 81489-6) Normal [facility] HospitalPregnancy Screen, [id number] 05:32:52* Test Item Value Reference Range Interpretation Comme nts Preg Test, Ur (test code = 211-) Negative Negative Lab Interpretation (test cod e = 83950-0) Normal [facility]Pregnancy Screen, [id number] 05:32:52* Test Item Value Reference Range Interpretation Comme nts Preg Test, Ur (test code = 2111-1) Negative Negative Lab Interpretation (test cod e = 28234-8) Normal [facility]Pregnancy Screen, [id number] 05:32:52* Test Item Value Reference Range Interpretation Comme nts Preg Test, Ur (test code = 2111-1) Negative Negative Lab Interpretation (test cod e = 00448-5) Normal [facility]Pregnancy Screen, [id number] 05:32:52* Test Item Value Reference Range Interpretation Comme nts Preg Test, Ur (test code = 2111-) Negative Negative Lab Interpretation (test cod e = 06406-7) Normal [facility]Pregnancy Screen, [id number] 05:32:52* Test Item Value Reference Range Interpretation Comme nts Preg Test, Ur (test code = 2111-) Negative Negative Lab Interpretation (test cod e = 51274-4) Normal [facility]Pregnancy Screen, [id number] 05:32:52* Test Item Value Reference Range Interpretation Comme nts Preg Test, Ur (test code = 2111-) Negative Negative Lab Interpretation (test cod e = 81762-3) Normal [facility]Pregnancy Screen, [id number] 05:32:52* Test Item Value Reference Range Interpretation Comme nts Preg Test, Ur (test code = 2111-) Negative Negative Lab Interpretation (test cod e = 29859-3) Normal [facility]Pregnancy Screen, [id number] 05:32:52* Test Item Value Reference Range Interpretation Comme nts Preg Test, Ur (test code = 2111-) Negative Negative Lab Interpretation (test cod e = 19889-9) Normal [facility]Pregnancy Screen, [id number] 05:32:52* Test Item Value Reference Range Interpretation Comme nts Preg Test, Ur (test code = 2111-) Negative Negative Lab Interpretation (test cod e = 42864-8) Normal [facility]Pregnancy Screen, [id number] 05:32:52* Test Item Value Reference Range Interpretation Comme nts Preg Test, Ur (test code = 2112-1) Negative Negative Lab Interpretation (test cod e = 61433-6) Normal [facility]Pregnancy Screen, [id number] 05:32:52* Test Item Value Reference Range Interpretation Comme nts Preg Test, Ur (test code = 2-1) Negative Negative Lab Interpretation (test cod e = 51413-0) Normal [facility]Pregnancy Screen, [id number] 05:32:52* Test Item Value Reference Range Interpretation Comme nts Preg Test, Ur (test code = 2-1) Negative Negative Lab Interpretation (test cod e = 54449-3) Normal [facility]Pregnancy Screen, [id number] 05:32:52* Test Item Value Reference Range Interpretation Comme nts Preg Test, Ur (test code = 2111-) Negative Negative Lab Interpretation (test cod e = 30233-2) Normal [facility]Pregnancy Screen, [id number] 05:32:52* Test Item Value Reference Range Interpretation Comme nts Preg Test, Ur (test code = 2111-) Negative Negative Lab Interpretation (test cod e = 81711-4) Normal [facility]Pregnancy Screen, [id number] 05:32:52* Test Item Value Reference Range Interpretation Comme nts Preg Test, Ur (test code = 2111-) Negative Negative Lab Interpretation (test cod e = 34107-4) Normal [facility]Pregnancy Screen, [id number] 05:32:52* Test Item Value Reference Range Interpretation Comme nts Preg Test, Ur (test code = 2111-) Negative Negative Lab Interpretation (test cod e = 60595-6) Normal [facility]Pregnancy Screen, [id number] 05:32:52* Test Item Value Reference Range Interpretation Comme nts Preg Test, Ur (test code = 2111-1) Negative Negative Lab Interpretation (test cod e = 00080-4) Normal [facility]Pregnancy Screen, [id number] 05:32:52* Test Item Value Reference Range Interpretation Comme nts Preg Test, Ur (test code = 2111-) Negative Negative Lab Interpretation (test cod e = 36806-3) Normal [facility]Pregnancy Screen, [id number] 05:32:52* Test Item Value Reference Range Interpretation Comme nts Preg Test, Ur (test code = 2111-) Negative Negative Lab Interpretation (test cod e = 72349-3) Normal [facility]Pregnancy Screen, [id number] 05:32:52* Test Item Value Reference Range Interpretation Comme nts Preg Test, Ur (test code = 2111-) Negative Negative Lab Interpretation (test cod e = 66000-0) Normal [facility]Pregnancy Screen, [id number] 05:32:52* Test Item Value Reference Range Interpretation Comme nts Preg Test, Ur (test code = 2111-) Negative Negative Lab Interpretation (test cod e = 28505-7) Normal [facility]Pregnancy Screen, [id number] 05:32:52* Test Item Value Reference Range Interpretation Comme nts Preg Test, Ur (test code = 2111-) Negative Negative Lab Interpretation (test cod e = 89015-2) Normal [facility] Screen, [id number] 05:32:52* Test Item Value Reference Range Interpretation Comme nts Preg Test, Ur (test code = 2111-) Negative Negative Lab Interpretation (test cod e = 72818-6) Normal [facility]Pregnancy Screen, [id number] 05:32:52* Test Item Value Reference Range Interpretation Comme nts Preg Test, Ur (test code = 2111-) Negative Negative Lab Interpretation (test cod e = 61425-9) Normal [facility]Pregnancy Screen, [id number] 05:32:52* Test Item Value Reference Range Interpretation Comme nts Preg Test, Ur (test code = 2111-) Negative Negative Lab Interpretation (test cod e = 14835-7) Normal [facility]Pregnancy Screen, [id number] 05:32:52* Test Item Value Reference Range Interpretation Comme nts Preg Test, Ur (test code = 2111-) Negative Negative Lab Interpretation (test cod e = 14909-0) Normal [facility]Pregnancy Screen, [id number] 05:32:52* Test Item Value Reference Range Interpretation Comme nts Preg Test, Ur (test code = 2-1) Negative Negative Lab Interpretation (test cod e = 05045-6) Normal [facility]Pregnancy Screen, [id number] 05:32:52* Test Item Value Reference Range Interpretation Comme nts Preg Test, Ur (test code = 2-1) Negative Negative Lab Interpretation (test cod e = 00960-4) Normal [facility]Pregnancy Screen, [id number] 05:32:52* Test Item Value Reference Range Interpretation Comme nts Preg Test, Ur (test code = 2111-1) Negative Negative Lab Interpretation (test cod e = 35359-2) Normal [facility]Pregnancy Screen, [id number] 05:32:52* Test Item Value Reference Range Interpretation Comme nts Preg Test, Ur (test code = 2111-) Negative Negative Lab Interpretation (test cod e = 61049-9) Normal [facility] Screen, [id number] 05:32:52* Test Item Value Reference Range Interpretation Comme nts Preg Test, Ur (test code = 2111-) Negative Negative Lab Interpretation (test cod e = 17923-3) Normal [facility]Pregnancy Screen, [id number] 05:32:52* Test Item Value Reference Range Interpretation Comme nts Preg Test, Ur (test code = 2111-1) Negative Negative Lab Interpretation (test cod e = 88268-2) Normal [facility]Pregnancy Screen, [id number] 05:32:52* Test Item Value Reference Range Interpretation Comme nts Preg Test, Ur (test code = 2111-1) Negative Negative Lab Interpretation (test cod e = 59293-9) Normal [facility]Pregnancy Screen, [id number] 05:32:52* Test Item Value Reference Range Interpretation Comme nts Preg Test, Ur (test code = 2111-1) Negative Negative Lab Interpretation (test cod e = 33631-8) Normal [facility]Pregnancy Screen, [id number] 05:32:52* Test Item Value Reference Range Interpretation Comme nts Preg Test, Ur (test code = 2111-1) Negative Negative Lab Interpretation (test cod e = 77790-0) Normal [facility]Pregnancy Screen, [id number] 05:32:52* Test Item Value Reference Range Interpretation Comme nts Preg Test, Ur (test code = 2-1) Negative Negative Lab Interpretation (test cod e = 39388-1) Normal [facility]Pregnancy Screen, [id number] 05:32:52* Test Item Value Reference Range Interpretation Comme nts Preg Test, Ur (test code = 2111-1) Negative Negative Lab Interpretation (test cod e = 10458-8) Normal [facility]Pregnancy Screen, [id number] 05:32:52* Test Item Value Reference Range Interpretation Comme nts Preg Test, Ur (test code = 2111-) Negative Negative Lab Interpretation (test cod e = 68089-8) [facility], [id number] 05:32:52* Test Item Value Reference Range Interpretation Comme nts Preg Test, Ur (test code = 2111-) Negative Negative Lab Interpretation (test cod e = 09274-0) Normal [facility] Screen, [id number] 05:32:52* Test Item Value Reference Range Interpretation Comme nts Preg Test, Ur (test code = 2111-1) Negative Negative Lab Interpretation (test cod e = 97322-5) Normal [facility]Pregnancy Screen, [id number] 05:32:52* Test Item Value Reference Range Interpretation Comme nts Preg Test, Ur (test code = 2111-1) Negative Negative Lab Interpretation (test cod e = 39773-7) Normal [facility]Pregnancy Screen, [id number] 05:32:52* Test Item Value Reference Range Interpretation Comme nts Preg Test, Ur (test code = 2111-1) Negative Negative Lab Interpretation (test cod e = 18939-0) Normal [facility]Pregnancy Screen, [id number] 05:32:52* Test Item Value Reference Range Interpretation Comme nts Preg Test, Ur (test code = 2-1) Negative Negative Lab Interpretation (test cod e = 85273-6) Normal [facility]Pregnancy Screen, [id number] 05:32:52* Test Item Value Reference Range Interpretation Comme nts Preg Test, Ur (test code = 2-1) Negative Negative Lab Interpretation (test cod e = 97800-3) Normal [facility]Pregnancy Screen, [id number] 05:32:52* Test Item Value Reference Range Interpretation Comme nts Preg Test, Ur (test code = 2-1) Negative Negative Lab Interpretation (test cod e = 22129-6) Normal [facility]Pregnancy Screen, [id number] 05:32:52* Test Item Value Reference Range Interpretation Comme nts Preg Test, Ur (test code = 2111-) Negative Negative Lab Interpretation (test cod e = 52362-0) Normal [facility] HospitalPREGNANCY SCREEN, [id number] 05:32:52* Test Item Value Reference Range Interpretation Comme nts TEST URINE (BEAKER ) (test code = 583) Negative Negative BASIC METABOLIC [id number] 23:30:54* Test Item Value Reference Range Interpretation [...] GFR is not applicable for dialysis patients [employer] Instructor ID - ADMINPT/LHDJ4056-35-79 23:15:33* Test Item Value Reference Range Interpretation [...] H CT neck soft tissue without IV srlowmnt9558-92-85 13:45:22EXAM: CT NECK SOFT TISSUE WITHOUT IV [...] Postoperative changes from anterior cervical discectomy fusionat C3-L4Ktxpamzn Lung Apices: NormalCH[facility] HospitalCT NECK SOFT TISSUE WITHOUT IV [id number] 13:45:22 [facility] 1970 Sex: [...] Postoperative changes from anterior cervical discectomy fusionat C3-Q9Vwqisnuj Lung Apices: NormalIMPRESSION:Exam limited by lack of intravenous contrast.1. 1.8 x 2.9 x 1.3 cm ill-defined fluid collection in the leftanterolateral neck soft tissues, suggesting evolving postoperativehemorrhage. Superimposed infection is not ex cluded.2. Retropharyngeal fluid and air measuring up to 0.8 cm in thickness,favored to be present postoperative right frontal edema. Superimposedinfection is not excluded.3. Postoperative changes from ACDF at C3- Q9Ugarghclmlavxc Signed By: Maxim Ramos07/31/2022 13:47 CDTWorkstation Name: [id number] METABOLIC [id number] 08:13:13* Test Item Value Reference Range Interpretation [...] GFR is not applicable for dialysis patients [employer] Instructor ID - BVCBC W/PLT COUNT & AUTO [id number] 07:46:31* Test Item Value Reference Range Interpretation [...] 0.00-1.00 XR spine cervical 2 or 3 [id number] 20:24:23TECHNIQUE: Frontal and lateral views of the cervical spine. INDICATION: Postop Standing Films. COMPARISON: None.[facility] HospitalXR SPINE CERVICAL 2 OR 3 [id number] 20:24:23[facility] : 1970 Sex: FTECHNIQUE: [...] Signed By: Zachariah Garcia05/28/2023 20:26 CDTWorkstation Name: [id number] fluoro non-specific up to 1 hour 2023-05-28 11:45:16This is a non-reportable study with no Radiologist dictation. Please refer to your PACS to review images, or Doc Flowsheets for documentation on studies without images.[facility] HospitalFL FLUORO NON-SPECIFIC UP TO 1 [id number] 11:45:16 [facility] : 1970 Sex: FThis is a non- reportable study with no Radiologist dictation. Please refer to your PACS to review images, or Doc Flowsheets for documentation on studies without images.FL FLUORO NON-SPECIFIC UP TO 1 [id number] 10:13:02 [facility] : 1970 Sex: FTECHNIQUE: 1 lateral fluoroscopic image of the cervical spine forlocalization.Fluoroscopic time: 3second(s).FINDINGS:The surgical pointer is at C3-C4.The findings were discussed with Dr. Garcia in theOR who concurred withthe findings.IMPRESSION:Intraoperative localization plain film as described abo ta.Electronically Signed By: Derik Reyez05/28/2023 10:15 CDTWorkstation Name: [id number] Chavez, [id number] 08:21:03* Test Item Value Reference Range Interpretation Comme nts GONADOTROPIN, CHORIONIC (HCG ) QUANT (BEAKER) (test code = 649) < mIU/mL 0-10 Non- Females: <10 mIU/mL Females: Gestation Age Reference Range(mIU/mL) 0.2-1 Week 5-50 1-2 Weeks 50-500 2-3 Weeks 100-5,000 3-4 Weeks 500-10,000 4-5 Weeks 1,000-50,000 5-6 Weeks 10,000-100,000 6-8 Weeks 15,000- 200,000 2-3 Months 10,000-100,000 [employer] Technology Instructor ID - ADMINCULTURE, [id number] 09:28:30SPECIMEN NUMBER: [id number] CULTURE, URINE SPECIMEN NUMBER: [id number] SPECIMEN COMMENT: URINE SOURCE: URINE REPORT STATUS: FINAL FINAL REPORT: 05/15/2023 >100,000 CFU/ML UROGENITAL REBEL PRESENT NO COMMON PATHOGENS UNLESS OTHERWISE INDICATED, ALL TESTING PERFORMED AT [facility] [address] [place] [address] SPIDER ASSEMBLER: JANNY STEINER M.D. CLIA NUMBER [id number] [place]. [id number], [id number] 12:02:50SPECIMEN NUMBER: [id number] CULTURE, URINE SPECIMEN NUMBER: [id number] SOURCE: URINE REPORT STATUS: FINAL FINAL REPORT: 05/13/2023 NO SPECIMEN RECEIVED FOR TESTING. CHARGES DELETED.BASIC METABOLIC [id number] 04:48:43* Test Item Value Reference Range Interpretation Comme nts GLUCOSE (test code = 2217) 117 MG/DL 70-99 H BUN (test code = 2208) 20 MG/DL 6-20 CREATININE (test code = 2214) 0.83 MG/DL 0.60-1.30 eGFR (2020 CKD-EPI) (test co de = 53092) 85 ML/MIN/1.73 >60 SODIUM (test code = [...] 12.7 SECONDS 12.5-14.7 INR (test code = 03655) 0.9 SEE BELOW CURRENT RECOMMENDATIONS ARE FOR AN INR OF 2.0-3.0 FOR ALL PATIENTS ON VITAMIN K ANTAGONISTS, EXCEPT THOSE WITH PROSTHETIC HEART VALVES, FOR WHOM INR OF 2.5-3.5 IS RECOMMENDED. UNLESS OTHERWISE INDICATED, ALL TESTING PERFORMED AT [facility] [address] [place] [id number] SPIDER ASSEMBLER: JANNY STEINER M.D. CLIA NUMBER [id number] [facility] [place]. [id number] CBC W/AUTO DIFF WITH [id number] 01:54:17* Test Item Value Reference Range Interpretation [...] H ABS NUCLEATED RBCS (test code = 57716) 0.00 K/UL 0.00-0.11 ECG 12 [id number] 14:02:48Ventricular Rate 102 BPMAtrial Rate 102 BPMP-R Interval 146 msQRS Duration 90 msQ-T Interval 372 msQTC Calculation(Bazett) 484 msP [place] 11 degreesR [place] -53 degreesT [place] 29 degrees Sinus tachycardiaPossible Left atrial enlargementLeft axis deviationPoor R wave progression Cannot rule out Anterior infarct , age undetermined vs lead misplacementNonspecific T wave abnormalityProlonged QTAbnormal ECGNo previous ECGs availableConfirmed by David GARCIA, KYLE ([id number]) on 04/06/2023 2:02:46 [facility] W CONTRAST & [id number] 13:11:39Transthoracic Echocardiography Report (TTE) Demographics Patient Name YUE LAWS Date of Study 03/31/2023 ESTELLE Gender Female Visit Number [id number] Race Room Number 2227 Number Date of 1970 Referring Physician Mariah Aldridge MD Age 53year(s) Senior Peoplesoft Developer Wilmer Francois Out Of School Hours Care Worker Josefina Corbett RDCS Interpreting Physician Melody MDProcedure [...] Valve Peak Velocity:0.74 m/s Peak Gradient: 2.22 mmHgU.S. Naval HospitalXR chest 1 view portable / [id number] 15:39:07TECHNIQUE: Frontal view of the chest. INDICATION: CHf. COMPARISON: None. FINDINGS: LINES/TUBES: None. HEART AND MEDIASTINUM: Cardiomediastinal contour is within normallimits. LUNGS: The lungs are well inflated and clear. No consolidation orpulmonary edema. PLEURA: No pneumothorax. No significant pleural effusion. SOFT TISSUES AND BONES: Cervical spinal fixation hardware is noted.[facility] HospitalXR CHEST 1 VIEW PORTABLE / [id number] 15:39:07 [facility] [facility]: [facility] : 1970 Sex: FTECHNIQUE: Frontal view of the chest.INDICATION: CHf.COMPARISON: None.FINDINGS:LINES/TUBES: None.HE ART AND MEDIASTINUM: Cardiomediastinal contour is within normallimits. LUNGS: The lungs are well inflated and clear. No consolidation orpulmonary edema.PLEURA: No pneumothorax. No significant pleuraleffusion.SOFT TISSUES AND BONES: Cervical spinal fixation hardware is noted.IMPRESSION:No acute card iopulmonary process.Electronically Signed By: Jose Carlos Lebron04/01/2023 15:41 CDTWorkstation Name: [id number] NATRIURETIC FACTOR (BNP)2023-04-01 14:15:07* Test Item Value Reference Range Interpretation Comme nts B-TYPE NATRIURETIC PEPTIDE ( BEAKER) (test code = 700) 192 pg/mL 0-100 H Machine Tool Technology Instructor ID - ADMINMR spine cervical without IV [id number] 11:30:35MRI cervical spine without contrast CLINICAL HISTORY: [...] and paraspinal soft tissues are within normal limits.[facility] IV [id number] 11:30:35 [facility] : 1970 Sex: FMRI [...] Signed By: Maxim Sultana03/31/2023 11:32 CDTWorkstation Name: [id number] METABOLIC [id number] 04:43:14* Test Item Value Reference Range Interpretation [...] GFR is not applicable for dialysis patients Machine Tool Technology Instructor [facility] (HEMOGRAM ONLY)2023-03-31 04:20:07* Test Item [...] 0 /100 WBC 0-0 Arterial doppler legs wxkltgzos1621-55-25 17:44:07PV LAB - Lower Extremity Arterial Duplex Demographics Patient Name YUE LAWS Date of Study ESTELLE Age 53 Visit Number [id number] Gender Female Accession Number [id number] of 1970 Referring Mariah Peteneena, Room Number 2227 Physician Senior Peoplesoft Developer Yovana Akins Interpreting John Solorio, Physician FellowProcedureType [...] + + + + + + !Prox BATCH FREEZER ! !32 ! !Biphasic ! !60.9 ! !Triphasic ! +-- + + + + + + + + + !Mid BATCH FREEZER ! !25.9 ! !Biphasic ! !59.7 ! !Triphasic ! + + + + + + + + + + !Dist BATCH FREEZER ! !33.2 ! !Biphasic ! !37.4 ! !Biphasic ! +------- + + + + + + + + + !Prox KNEDRA ! ! 56.2 ! !Biphasic ! !60.5 [...] + + + + + + +[facility](Ankle[facility]Brachial [facility])2023-03-30 17:13:47PV LAB - Lower Extremity Arterial Procedure Demographics Patient Name YUE LAWS Date of Study 03/30/2023 ESTELLE Age 53 Visit Number [id number] Gender Female Accession Number [id number] Date of 1970 Referring Mariah Aldridge, Room Number 2227 Physician Senior Peoplesoft Developer Yovana Akins Interpreting John Solorio, Physician FellowProcedureType [...] cm/s ; Diameters are measured in cmCHI [facility]ino HospitalMR thoracic spine without IV [id number] 12:50:50MR THORACIC SPINE WITHOUT IV CONTRAST INDICATION: [...] and further reported on MRI lumbar spine. [facility] IV [id number] 12:50:50[facility] : 1970 Sex: FMR [...] abnormality. T10-11 moderate right neural foraminal stenosis yhlB01-79 moderate bilateral foraminal stenosis due to facet [...] Signed By: Ryan Buckley03/30/2023 12:52 CDTWorkstation Name: [id number] spine lumbar without IV hggvzfmc2838-30-83 12:33:57MR LUMBAR SPINE WITHOUT IV CONTRAST INDICATION: Unlisted Reason for ExamConcern for cord compression COMPARISON: None TECHNIQUE: Multiplanar, multisequence MR images of the lumbar spinewithout contrast. FINDINGS: For the purposes of this dictation, the 5 lowermost klsrcd-kwhzwfhqekgui-xrvm vertebral bodies are labeled L1-L5.Alignment of the [...] with mild to moderatebilateral neural foraminal stenosisCHI El [facility] HospitalMR LUMBAR SPINE WITHOUT IV [id number] 12:33:57 [facility] 1970 Sex: FMR LUMBAR SPINE WITHOUT IV CONTRASTINDICATION: Unlisted Reason for ExamConcern for cord compressionCOMPARISON: NoneTECHNIQUE: Multiplanar, multisequence MR images of the lumbar spinewithout contrast. FINDINGS: For the purposes of this dictation, the 5 lowermost ksyqaz-zjugzhuctlvjc-nmac vertebral bodies are labeled L1- L5.Alignment of the lumbar spine is within normal limits. Vertebral body height is maintained. Bone marrow edema is seen at the inferior L3 and superior L4 vertebralbodies and bilateral L4 pedicles, favored to be degenerative in nature.Suggestion of a synovial cyst at the mswtzK15-L22 level (series 301image eight).No spinal cord signal [...] flavum buckling versus synovial cyst at the wwiebE49-T03 level (series 301image eight). MRI thoracic spine can beconsidered for further evaluation.7. Mild clumping of the cauda equina nerve roots, which is nonspecificbut may represent arachnoiditis. Postcontrast imaging can be consideredfor further evaluation.Electronically Signed By: Maxim Sultana03/30/2023 12:36 CDTWorkstation Name: [id number] 11:45:01* Test Item Value Reference Range Interpretation [...] 5.7- 6.4% indicates increased risk for diabetes (prediabetes)."[employer] Instructor ID - ADMEEG AWAKE AND [id number] 09:57:53Steph Martinez MD 03/30/2023 9:59 AMELECTROENCEPHALOGRAM FOR [facility] EEG Type: Inpatient, outpatient, EMUDATE(s) OF EE03/30/23DATE OF REPORT: 03/30/23MRN: [id number] of : 1970EE-1454Start time: 08:36Stop time: 09:23ICD-10: R56.9 CPT Code: 74269 (awake and asleep)HISTORY: 53 y/o female with [...] additional EEG recordings. Steph Elias MD, MPHNeurophysiology/Epilepsy AttendingU.S. [facility] Hospital EEG AWAKE AND [id number] 09:57:53Steph Martinez MD 03/30/2023 9:[address] EEG Type: Inpatient, outpatient, EMUDATE(s) OF EE03/30/23DATE OF REPORT: 03/30/23MRN: [id number] of : 1970EE-1454Start time: 08:36Stop time: :23ICD-10: R56.9 CPT Code: 71350 (awake and asleep)HISTORY: 53 y/o female with [...] EEG recordings. Steph Elias MD, MPHNeurophysiology/Epilepsy AttendingCH[facility] EEG AWAKE AND [id number] 09:57:53Steph Martinez MD 03/30/2023 9:[address] [facility] EEG Type: Inpatient, outpatient, EMUDATE(s) OF EE03/30/23DATE OF REPORT: 03/30/23MRN: [id number] of : 1970EE-1454Start time: 08:36Stop time: :ICD-10: R56.9 CPT Code: 27720 (awake and asleep)HISTORY: 53 y/o female with [...] EEG recordings. Steph Elias MD, MPHNeurophysiology/Epilepsy AttendingCH[facility] VALPROIC ACID LEVEL, [id number] 09:42:31* Test Item Value Reference Range Interpretation Comme nts VALPROIC ACID TOTAL (BEAKER) (test code = 924) 76 ug/mL 50-100 Therapeutic range for some clinical conditions may be >100 ug/mLUrinalysis w/Microscopic + Reflex to [id number] 08:43:51* Test Item Value Reference Range Interpretation Comme nts Color, UA (test code = 5778-6) Yellow Clarity, UA (test code = 5767-9) Clear Specific [place], UA (test code = 5811-5) 1.033 1.001-1.035 pH, UA (test code = 5803-2) 6.0 5.0-8.0 Protein, UA (test code = 93109-6) 30 mg/dL Negative A Glucose, UA (test code = 365) Negative Negative Ketones, UA (test code = 2514-8) Negative Negative Bilirubin, UA (test code = 03980-2) Negative Negative Blood, UA (test code = 69326-7) Small Negative A Nitrite, UA (test code = 5802-4) Negative Negative Leukocytes, UA (test code = 5799-2) Negative Negative Urobilinogen, UA (test code = 16665-4) 0.2 0.2-1.0 RBC, UA (test code = 34971-6) 51 See_Comment [Automated message] The system which [...] Occasional Squam Epithel, UA (test code = 09930-2) See_Comment [Automated message] The system which generated this result transmitted reference range: /HPF. The reference range was not used to interpret this result as normal/abnormal. Specimen Source (test code = 2795) LYNDSAY (test code = LYNDSAY) Machine Tool Technology Instructor ID - [auto]Machine Tool Technology Instructor ID - tech Lab Interpretation (test code = 50447-1) Abnormal [facility] Hospital[facility]inalysis w/Microscopic + Reflex to Culture 2023-03-30 08:43:51* Test Item Value Reference Range Interpretation Comme nts Color, UA (test code = 5778-6) Yellow Clarity, UA (test code = 5767-9) Clear Specific [place], UA (test code = 5811-5) 1.033 1.001-1.035 pH, UA (test code = 5803-2) 6.0 5.0-8.0 Protein, UA (test code = 10588-4) 30 mg/dL Negative A Glucose, UA (test code = 365) Negative Negative Ketones, UA (test code = 2514-8) Negative Negative Bilirubin, UA (test code = 10431-9) Negative Negative Blood, UA (test code = 63902-8) Small Negative A Nitrite, UA (test code = 5802-4) Negative Negative Leukocytes, UA (test code = 5799-2) Negative Negative Urobilinogen, UA (test code = 30562-1) 0.2 0.2-1.0 RBC, UA (test code = 02874-1) 51 See_Comment [Automated message] The system which [...] Occasional Squam Epithel, UA (test code = 57952-4) See_Comment [Automated message] The system which generated this result transmitted reference range: /HPF. The reference range was not used to interpret this result as normal/abnormal. Specimen Source (test code = 2795) LYNDSAY (test code = LYNDSAY) Machine Tool Technology Instructor ID - [auto]Machine Tool Technology Instructor ID - tech Lab Interpretation (test code = 89510-0) Abnormal [facility]/Microscopic + Reflex to Culture 2023-03-30 08:43:51* Test Item Value Reference Range Interpretation Comme nts Color, UA (test code = 5778-6) Yellow Clarity, UA (test code = 5767-9) Clear Specific [place], UA (test code = 5811-5) 1.033 1.001-1.035 pH, UA (test code = 5803-2) 6.0 5.0-8.0 Protein, UA (test code = 53188-8) 30 mg/dL Negative A Glucose, UA (test code = 365) Negative Negative Ketones, UA (test code = 2514-8) Negative Negative Bilirubin, UA (test code = 12071-1) Negative Negative Blood, UA (test code = 84753-9) Small Negative A Nitrite, UA (test code = 5802-4) Negative Negative Leukocytes, UA (test code = 5799-2) Negative Negative Urobilinogen, UA (test code = 43829-1) 0.2 0.2-1.0 RBC, UA (test code = 73038-6) 51 See_Comment [Automated message] The system which [...] Occasional Squam Epithel, UA (test code = 16141-2) See_Comment [Automated message] The system which generated this result transmitted reference range: /HPF. The reference range was not used to interpret this result as normal/abnormal. Specimen Source (test code = 2795) LYNDSAY (test code = LYNDSAY) Machine Tool Technology Instructor ID - [auto]Machine Tool Technology Instructor ID - tech Lab Interpretation (test code = 56571-7) Abnormal [facility] w/Microscopic + Reflex to Culture 2023-03-30 08:43:51* Test Item Value Reference Range Interpretation Comme nts Color, UA (test code = 5778-6) Yellow Clarity, UA (test code = 5767-9) Clear Specific [place], UA (test code = 5811-5) 1.033 1.001-1.035 pH, UA (test code = 5803-2) 6.0 5.0-8.0 Protein, UA (test code = 67972-3) 30 mg/dL Negative A Glucose, UA (test code = 365) Negative Negative Ketones, UA (test code = 2514-8) Negative Negative Bilirubin, UA (test code = 27876-7) Negative Negative Blood, UA (test code = 80011-4) Small Negative A Nitrite, UA (test code = 5802-4) Negative Negative Leukocytes, UA (test code = 5799-2) Negative Negative Urobilinogen, UA (test code = 27984-3) 0.2 0.2-1.0 RBC, UA (test code = 32761-1) 51 See_Comment [Automated message] The system which [...] Occasional Squam Epithel, UA (test code = 17465-7) See_Comment [Automated message] The system which generated this result transmitted reference range: /HPF. The reference range was not used to interpret this result as normal/abnormal. Specimen Source (test code = 2795) LYNDSAY (test code = LYNDSAY) Machine Tool Technology Instructor ID - [auto]Machine Tool Technology Instructor ID - tech Lab Interpretation (test code = 30941-2) Abnormal [facility] w/Microscopic + Reflex to Culture 2023-03-30 08:43:51* Test Item Value Reference Range Interpretation Comme nts Color, UA (test code = 5778-6) Yellow Clarity, UA (test code = 5767-9) Clear Specific [place], UA (test code = 5811-5) 1.033 1.001-1.035 pH, UA (test code = 5803-2) 6.0 5.0-8.0 Protein, UA (test code = 19490-7) 30 mg/dL Negative A Glucose, UA (test code = 365) Negative Negative Ketones, UA (test code = 2514-8) Negative Negative Bilirubin, UA (test code = 17825-5) Negative Negative Blood, UA (test code = 01519-4) Small Negative A Nitrite, UA (test code = 5802-4) Negative Negative Leukocytes, UA (test code = 5799-2) Negative Negative Urobilinogen, UA (test code = 77535-6) 0.2 0.2-1.0 RBC, UA (test code = [...] Occasional Squam Epithel, UA (test code = 06993-0) See_Comment [Automated message] The system which generated this result transmitted reference range: /HPF. The reference range was not used to interpret this result as normal/abnormal. Specimen Source (test code = 2795) LYNDSAY (test code = LYNDSAY) Machine Tool Technology Instructor ID - [auto]Machine Tool Technology Instructor ID - tech Lab Interpretation (test code = 31914-3) Abnormal [facility] + Reflex to Culture 2023-03-30 08:43:51* Test Item Value Reference Range Interpretation Comme nts Color, UA (test code = 5778-6) Yellow Clarity, UA (test code = 5767-9) Clear Specific [place], UA (test code = 5811-5) 1.033 1.001-1.035 pH, UA (test code = 5803-2) 6.0 5.0-8.0 Protein, UA (test code = 88381-0) 30 mg/dL Negative A Glucose, UA (test code = 365) Negative Negative Ketones, UA (test code = 2514-8) Negative Negative Bilirubin, UA (test code = 67694-0) Negative Negative Blood, UA (test code = 89197-5) Small Negative A Nitrite, UA (test code = 5802-4) Negative Negative Leukocytes, UA (test code = 5799-2) Negative Negative Urobilinogen, UA (test code = 87043-4) 0.2 0.2-1.0 RBC, UA (test code = 00263-3) 51 See_Comment [Automated message] The system which [...] Occasional Squam Epithel, UA (test code = 38976-2) See_Comment [Automated message] The system which generated this result transmitted reference range: /HPF. The reference range was not used to interpret this result as normal/abnormal. Specimen Source (test code = 2795) LYNDSAY (test code = LYNDSAY) Machine Tool Technology Instructor ID - [auto]Machine Tool Technology Instructor ID - tech Lab Interpretation (test code = 45423-1) Abnormal [facility]/Microscopic + Reflex to Culture 2023-03-30 08:43:51* Test Item Value Reference Range Interpretation Comme nts Color, UA (test code = 5778-6) Yellow Clarity, UA (test code = 5767-9) Clear Specific [place], UA (test code = 5811-5) 1.033 1.001-1.035 pH, UA (test code = 5803-2) 6.0 5.0-8.0 Protein, UA (test code = 78085-7) 30 mg/dL Negative A Glucose, UA (test code = 365) Negative Negative Ketones, UA (test code = 2514-8) Negative Negative Bilirubin, UA (test code = 47122-4) Negative Negative Blood, UA (test code = 53864-0) Small Negative A Nitrite, UA (test code = 5802-4) Negative Negative Leukocytes, UA (test code = 5799-2) Negative Negative Urobilinogen, UA (test code = 99701-0) 0.2 0.2-1.0 RBC, UA (test code = 57416-1) 51 See_Comment [Automated message] The system which [...] Occasional Squam Epithel, UA (test code = 53570-6) See_Comment [Automated message] The system which generated this result transmitted reference range: /HPF. The reference range was not used to interpret this result as normal/abnormal. Specimen Source (test code = 2795) LYNDSAY (test code = LYNDSAY) Machine Tool Technology Instructor ID - [auto]Machine Tool Technology Instructor ID - tech Lab Interpretation (test code = 46421-0) Abnormal [facility]opic + Reflex to Culture 2023-03-30 08:43:51* Test Item Value Reference Range Interpretation Comme nts Color, UA (test code = 5778-6) Yellow Clarity, UA (test code = 5767-9) Clear Specific [place], UA (test code = 5811-5) 1.033 1.001-1.035 pH, UA (test code = 5803-2) 6.0 5.0-8.0 Protein, UA (test code = 23925-7) 30 mg/dL Negative A Glucose, UA (test code = 365) Negative Negative Ketones, UA (test code = 2514-8) Negative Negative Bilirubin, UA (test code = 48513-0) Negative Negative Blood, UA (test code = 95992-4) Small Negative A Nitrite, UA (test code = 5802-4) Negative Negative Leukocytes, UA (test code = 5799-2) Negative Negative Urobilinogen, UA (test code = 26845-5) 0.2 0.2-1.0 RBC, UA (test code = 35728-0) 51 See_Comment [Automated message] The system which [...] Occasional Squam Epithel, UA (test code = 67276-2) See_Comment [Automated message] The system which generated this result transmitted reference range: /HPF. The reference range was not used to interpret this result as normal/abnormal. Specimen Source (test code = 2795) LYNDSAY (test code = LYNDSAY) Machine Tool Technology Instructor ID - [auto]Machine Tool Technology Instructor ID - tech Lab Interpretation (test code = 56133-2) Abnormal [facility]/Microscopic + Reflex to Culture 2023-03-30 08:43:51* Test Item Value Reference Range Interpretation Comme nts Color, UA (test code = 5778-6) Yellow Clarity, UA (test code = 5767-9) Clear Specific [place], UA (test code = 5811-5) 1.033 1.001-1.035 pH, UA (test code = 5803-2) 6.0 5.0-8.0 Protein, UA (test code = 92750-5) 30 mg/dL Negative A Glucose, UA (test code = 365) Negative Negative Ketones, UA (test code = 2514-8) Negative Negative Bilirubin, UA (test code = 98836-5) Negative Negative Blood, UA (test code = 36555-5) Small Negative A Nitrite, UA (test code = 5802-4) Negative Negative Leukocytes, UA (test code = 5799-2) Negative Negative Urobilinogen, UA (test code = 82420-0) 0.2 0.2-1.0 RBC, UA (test code = 46756-2) 51 See_Comment [Automated message] The system which [...] Occasional Squam Epithel, UA (test code = 52765-4) See_Comment [Automated message] The system which generated this result transmitted reference range: /HPF. The reference range was not used to interpret this result as normal/abnormal. Specimen Source (test code = 2795) LYNDSAY (test code = LYNDSAY) Machine Tool Technology Instructor ID - [auto]Machine Tool Technology Instructor ID - tech Lab Interpretation (test code = 54960-4) Abnormal [facility] + Reflex to Culture 2023-03-30 08:43:51* Test Item Value Reference Range Interpretation Comme nts Color, UA (test code = 5778-6) Yellow Clarity, UA (test code = 5767-9) Clear Specific [place], UA (test code = 5811-5) 1.033 1.001-1.035 pH, UA (test code = 5803-2) 6.0 5.0-8.0 Protein, UA (test code = 01598-0) 30 mg/dL Negative A Glucose, UA (test code = 365) Negative Negative Ketones, UA (test code = 2514-8) Negative Negative Bilirubin, UA (test code = 35458-8) Negative Negative Blood, UA (test code = 46183-5) Small Negative A Nitrite, UA (test code = 5802-4) Negative Negative Leukocytes, UA (test code = 5799-2) Negative Negative Urobilinogen, UA (test code = 40327-8) 0.2 0.2-1.0 RBC, UA (test code = 07320-0) 51 See_Comment [Automated message] The system which [...] Occasional Squam Epithel, UA (test code = 24918-6) See_Comment [Automated message] The system which generated this result transmitted reference range: /HPF. The reference range was not used to interpret this result as normal/abnormal. Specimen Source (test code = 2795) LYNDSAY (test code = LYNDSAY) Machine Tool Technology Instructor ID - [auto]Machine Tool Technology Instructor ID - tech Lab Interpretation (test code = 93825-6) Abnormal [facility] + Reflex to Culture 2023-03-30 08:43:51* Test Item Value Reference Range Interpretation Comme nts Color, UA (test code = 5778-6) Yellow Clarity, UA (test code = 5767-9) Clear Specific [place], UA (test code = 5811-5) 1.033 1.001-1.035 pH, UA (test code = 5803-2) 6.0 5.0-8.0 Protein, UA (test code = 24705-9) 30 mg/dL Negative A Glucose, UA (test code = 365) Negative Negative Ketones, UA (test code = 2514-8) Negative Negative Bilirubin, UA (test code = 23645-7) Negative Negative Blood, UA (test code = 79922-5) Small Negative A Nitrite, UA (test code = 5802-4) Negative Negative Leukocytes, UA (test code = 5799-2) Negative Negative Urobilinogen, UA (test code = 18172-0) 0.2 0.2-1.0 RBC, UA (test code = 34680-3) 51 See_Comment [Automated message] The system which [...] Occasional Squam Epithel, UA (test code = 61174-0) See_Comment [Automated message] The system which generated this result transmitted reference range: /HPF. The reference range was not used to interpret this result as normal/abnormal. Specimen Source (test code = 2795) LYNDSAY (test code = LYNDSAY) Machine Tool Technology Instructor ID - [auto]Machine Tool Technology Instructor ID - tech Lab Interpretation (test code = 75051-9) [facility]normal [facility] + Reflex to Culture 2023-03-30 08:43:51* Test Item Value Reference Range Interpretation Comme nts Color, UA (test code = 5778-6) Yellow Clarity, UA (test code = 5767-9) Clear Specific [place], UA (test code = 5811-5) 1.033 1.001-1.035 pH, UA (test code = 5803-2) 6.0 5.0-8.0 Protein, UA (test code = 62553-0) 30 mg/dL Negative A Glucose, UA (test code = 365) Negative Negative Ketones, UA (test code = 2514-8) Negative Negative Bilirubin, UA (test code = 97686-2) Negative Negative Blood, UA (test code = 83353-5) Small Negative A Nitrite, UA (test code = 5802-4) Negative Negative Leukocytes, UA (test code = 5799-2) Negative Negative Urobilinogen, UA (test code = 56647-3) 0.2 0.2-1.0 RBC, UA (test code = 26373-3) 51 See_Comment [Automated message] The system which [...] Occasional Squam Epithel, UA (test code = 44938-3) See_Comment [Automated message] The system which generated this result transmitted reference range: /HPF. The reference range was not used to interpret this result as normal/abnormal. Specimen Source (test code = 2795) LYNDSAY (test code = LYNDSAY) Machine Tool Technology Instructor ID - [auto]Machine Tool Technology Instructor ID - tech Lab Interpretation (test code = 35439-3) Abnormal [facility]opic + Reflex to Culture 2023-03-30 08:43:51* Test Item Value Reference Range Interpretation Comme nts Color, UA (test code = 5778-6) Yellow Clarity, UA (test code = 5767-9) Clear Specific [place], UA (test code = 5811-5) 1.033 1.001-1.035 pH, UA (test code = 5803-2) 6.0 5.0-8.0 Protein, UA (test code = 00705-3) 30 mg/dL Negative A Glucose, UA (test code = 365) Negative Negative Ketones, UA (test code = 2514-8) Negative Negative Bilirubin, UA (test code = 22662-6) Negative Negative Blood, UA (test code = 53166-0) Small Negative A Nitrite, UA (test code = 5802-4) Negative Negative Leukocytes, UA (test code = 5799-2) Negative Negative Urobilinogen, UA (test code = 40017-7) 0.2 0.2-1.0 RBC, UA (test code = 47872-7) 51 See_Comment [Automated message] The system which [...] Occasional Squam Epithel, UA (test code = 71860-4) See_Comment [Automated message] The system which generated this result transmitted reference range: /HPF. The reference range was not used to interpret this result as normal/abnormal. Specimen Source (test code = 2795) LYNDSAY (test code = LYNDSAY) Machine Tool Technology Instructor ID - [auto]Machine Tool Technology Instructor ID - tech Lab Interpretation (test code = 41195-7) [facility]normal [facility] + Reflex to Culture 2023-03-30 08:43:51* Test Item Value Reference Range Interpretation Comme nts Color, UA (test code = 5778-6) Yellow Clarity, UA (test code = 5767-9) Clear Specific [place], UA (test code = 5811-5) 1.033 1.001-1.035 pH, UA (test code = 5803-2) 6.0 5.0-8.0 Protein, UA (test code = 60124-9) 30 mg/dL Negative A Glucose, UA (test code = 365) Negative Negative Ketones, UA (test code = 2514-8) Negative Negative Bilirubin, UA (test code = 36331-4) Negative Negative Blood, UA (test code = 70235-0) Small Negative A Nitrite, UA (test code = 5802-4) Negative Negative Leukocytes, UA (test code = 5799-2) Negative Negative Urobilinogen, UA (test code = 50290-5) 0.2 0.2-1.0 RBC, UA (test code = 60325-3) 51 See_Comment [Automated message] The system which [...] Occasional Squam Epithel, UA (test code = 87796-1) See_Comment [Automated message] The system which generated this result transmitted reference range: /HPF. The reference range was not used to interpret this result as normal/abnormal. Specimen Source (test code = 2795) LYNDSAY (test code = LYNDSAY) [employer] Instructor ID - [auto][employer] Instructor ID - tech Lab Interpretation (test code = 55003-1) [facility] 08:43:51* Test Item Value Reference Range Interpretation Comme nts Color, UA (test code = 5778-6) Yellow Clarity, UA (test code = 5767-9) Clear Specific [place], UA (test code = 5811-5) 1.033 1.001-1.035 pH, UA (test code = 5803-2) 6.0 5.0-8.0 Protein, UA (test code = 75547-8) 30 mg/dL Negative A Glucose, UA (test code = 365) Negative Negative Ketones, UA (test code = 2514-8) Negative Negative Bilirubin, UA (test code = 09240-7) Negative Negative Blood, UA (test code = 01872-4) Small Negative A Nitrite, UA (test code = 5802-4) Negative Negative Leukocytes, UA (test code = 5799-2) Negative Negative Urobilinogen, UA (test code = 06994-4) 0.2 0.2-1.0 RBC, UA (test code = 74320-7) 51 See_Comment [Automated message] The system which [...] Occasional Squam Epithel, UA (test code = 97664-2) See_Comment [Automated message] The system which generated this result transmitted reference range: /HPF. The reference range was not used to interpret this result as normal/abnormal. Specimen Source (test code = 2795) LYNDSAY (test code = LYNDSAY) [employer] Instructor ID - [auto][employer] Instructor ID - tech Lab Interpretation (test code = 36093-6) [facility] Culture 2023-03-30 08:43:51* Test Item Value Reference Range Interpretation Comme nts Color, UA (test code = 5778-6) Yellow Clarity, UA (test code = 5767-9) Clear Specific [place], UA (test code = 5811-5) 1.033 1.001-1.035 pH, UA (test code = 5803-2) 6.0 5.0-8.0 Protein, UA (test code = 85879-1) 30 mg/dL Negative A Glucose, UA (test code = 365) Negative Negative Ketones, UA (test code = 2514-8) Negative Negative Bilirubin, UA (test code = 44604-1) Negative Negative Blood, UA (test code = 33976-0) Small Negative A Nitrite, UA (test code = 5802-4) Negative Negative Leukocytes, UA (test code = 5799-2) Negative Negative Urobilinogen, UA (test code = 07939-1) 0.2 0.2-1.0 RBC, UA (test code = 28969-6) 51 See_Comment [Automated message] The system which [...] Occasional Squam Epithel, UA (test code = 21376-4) See_Comment [Automated message] The system which generated this result transmitted reference range: /HPF. The reference range was not used to interpret this result as normal/abnormal. Specimen Source (test code = 2795) LYNDSAY (test code = LYNDSAY) [employer] Instructor ID - [auto][employer] Instructor ID - tech Lab Interpretation (test code = 84194-8) [facility]23-[facility]-30 08:43:51* Test Item Value Reference Range Interpretation Comme nts Color, UA (test code = 5778-6) Yellow Clarity, UA (test code = 5767-9) Clear Specific [place], UA (test code = 5811-5) 1.033 1.001-1.035 pH, UA (test code = 5803-2) 6.0 5.0-8.0 Protein, UA (test code = 48565-5) 30 mg/dL Negative A Glucose, UA (test code = 365) Negative Negative Ketones, UA (test code = 2514-8) Negative Negative Bilirubin, UA (test code = 58936-9) Negative Negative Blood, UA (test code = 86081-5) Small Negative A Nitrite, UA (test code = 5802-4) Negative Negative Leukocytes, UA (test code = 5799-2) Negative Negative Urobilinogen, UA (test code = 46804-3) 0.2 0.2-1.0 RBC, UA (test code = 42571-6) 51 See_Comment [Automated message] The system which [...] Occasional Squam Epithel, UA (test code = 28127-1) See_Comment [Automated message] The system which generated this result transmitted reference range: /HPF. The reference range was not used to interpret this result as normal/abnormal. Specimen Source (test code = 2795) LYNDSAY (test code = LYNDSAY) [employer] Instructor ID - [auto][employer] Instructor ID - tech Lab Interpretation (test code = 45504-9) [facility] 2023-03-30 08:43:51* Test Item Value Reference Range Interpretation Comme nts Color, UA (test code = 5778-6) Yellow Clarity, UA (test code = 5767-9) Clear Specific [place], UA (test code = 5811-5) 1.033 1.001-1.035 pH, UA (test code = 5803-2) 6.0 5.0-8.0 Protein, UA (test code = 95407-4) 30 mg/dL Negative A Glucose, UA (test code = 365) Negative Negative Ketones, UA (test code = 2514-8) Negative Negative Bilirubin, UA (test code = 59576-8) Negative Negative Blood, UA (test code = 87349-1) Small Negative A Nitrite, UA (test code = 5802-4) Negative Negative Leukocytes, UA (test code = 5799-2) Negative Negative Urobilinogen, UA (test code = 10928-1) 0.2 0.2-1.0 RBC, UA (test code = 69760-5) 51 See_Comment [Automated message] The system which [...] Occasional Squam Epithel, UA (test code = 87291-5) See_Comment [Automated message] The system which generated this result transmitted reference range: /HPF. The reference range was not used to interpret this result as normal/abnormal. Specimen Source (test code = 2795) LYNDSAY (test code = LYNDSAY) [employer] Instructor ID - [auto][employer] Instructor ID - tech Lab Interpretation (test code = 39188-0) [facility]lex [facility] Culture 2023-03-30 08:43:51* Test Item Value Reference Range Interpretation Comme nts Color, UA (test code = 5778-6) Yellow Clarity, UA (test code = 5767-9) Clear Specific [place], UA (test code = 5811-5) 1.033 1.001-1.035 pH, UA (test code = 5803-2) 6.0 5.0-8.0 Protein, UA (test code = 82019-3) 30 mg/dL Negative A Glucose, UA (test code = 365) Negative Negative Ketones, UA (test code = 2514-8) Negative Negative Bilirubin, UA (test code = 17148-1) Negative Negative Blood, UA (test code = 13227-8) Small Negative A Nitrite, UA (test code = 5802-4) Negative Negative Leukocytes, UA (test code = 5799-2) Negative Negative Urobilinogen, UA (test code = 61212-2) 0.2 0.2-1.0 RBC, UA (test code = 40881-6) 51 See_Comment [Automated message] The system which [...] Occasional Squam Epithel, UA (test code = 16343-9) See_Comment [Automated message] The system which generated this result transmitted reference range: /HPF. The reference range was not used to interpret this result as normal/abnormal. Specimen Source (test code = 2795) LYNDSAY (test code = LYNDSAY) [employer] Instructor ID - [auto][employer] Instructor ID - tech Lab Interpretation (test code = 17808-2) [facility] Reflex [facility] Culture 2023-03-30 08:43:51* Test Item Value Reference Range Interpretation Comme nts Color, UA (test code = 5778-6) Yellow Clarity, UA (test code = 5767-9) Clear Specific [place], UA (test code = 5811-5) 1.033 1.001-1.035 pH, UA (test code = 5803-2) 6.0 5.0-8.0 Protein, UA (test code = 51518-0) 30 mg/dL Negative A Glucose, UA (test code = 365) Negative Negative Ketones, UA (test code = 2514-8) Negative Negative Bilirubin, UA (test code = 34790-6) Negative Negative Blood, UA (test code = 82048-5) Small Negative A Nitrite, UA (test code = 5802-4) Negative Negative Leukocytes, UA (test code = 5799-2) Negative Negative Urobilinogen, UA (test code = 58596-9) 0.2 0.2-1.0 RBC, UA (test code = 10467-9) 51 See_Comment [Automated message] The system which [...] Occasional Squam Epithel, UA (test code = 13725-2) See_Comment [Automated message] The system which generated this result transmitted reference range: /HPF. The reference range was not used to interpret this result as normal/abnormal. Specimen Source (test code = 2795) LYNDSAY (test code = LYNDSAY) [employer] Instructor ID - [auto][employer] Instructor ID - tech Lab Interpretation (test code = 28345-9) [facility] Reflex [facility] Culture 2023-03-30 08:43:51* Test Item Value Reference Range Interpretation Comme nts Color, UA (test code = 5778-6) Yellow Clarity, UA (test code = 5767-9) Clear Specific [place], UA (test code = 5811-5) 1.033 1.001-1.035 pH, UA (test code = 5803-2) 6.0 5.0-8.0 Protein, UA (test code = 96177-4) 30 mg/dL Negative A Glucose, UA (test code = 365) Negative Negative Ketones, UA (test code = 2514-8) Negative Negative Bilirubin, UA (test code = 26641-1) Negative Negative Blood, UA (test code = 63131-3) Small Negative A Nitrite, UA (test code = 5802-4) Negative Negative Leukocytes, UA (test code = 5799-2) Negative Negative Urobilinogen, UA (test code = 04904-0) 0.2 0.2-1.0 RBC, UA (test code = 37917-0) 51 See_Comment [Automated message] The system which [...] Occasional Squam Epithel, UA (test code = 43795-8) See_Comment [Automated message] The system which generated this result transmitted reference range: /HPF. The reference range was not used to interpret this result as normal/abnormal. Specimen Source (test code = 2795) LYNDSAY (test code = LYNDSAY) [employer] Instructor ID - [auto][employer] Instructor ID - tech Lab Interpretation (test code = 14097-3) [facility] Reflex [facility] Culture 2023-03-30 08:43:51* Test Item Value Reference Range Interpretation Comme nts Color, UA (test code = 5778-6) Yellow Clarity, UA (test code = 5767-9) Clear Specific [place], UA (test code = 5811-5) 1.033 1.001-1.035 pH, UA (test code = 5803-2) 6.0 5.0-8.0 Protein, UA (test code = 47781-4) 30 mg/dL Negative A Glucose, UA (test code = 365) Negative Negative Ketones, UA (test code = 2514-8) Negative Negative Bilirubin, UA (test code = 44232-6) Negative Negative Blood, UA (test code = 07922-0) Small Negative A Nitrite, UA (test code = 5802-4) Negative Negative Leukocytes, UA (test code = 5799-2) Negative Negative Urobilinogen, UA (test code = 52088-1) 0.2 0.2-1.0 RBC, UA (test code = 08554-6) 51 See_Comment [Automated message] The system which [...] Occasional Squam Epithel, UA (test code = 47445-6) See_Comment [Automated message] The system which generated this result transmitted reference range: /HPF. The reference range was not used to interpret this result as normal/abnormal. Specimen Source (test code = 2795) LYNDASY (test code = LYNDSAY) [employer] Instructor ID - [auto][employer] Instructor ID - tech Lab Interpretation (test code = 36061-1) [facility]lex [facility] Culture 2023-03-30 08:43:51* Test Item Value Reference Range Interpretation Comme nts Color, UA (test code = 5778-6) Yellow Clarity, UA (test code = 5767-9) Clear Specific [place], UA (test code = 5811-5) 1.033 1.001-1.035 pH, UA (test code = 5803-2) 6.0 5.0-8.0 Protein, UA (test code = 05413-4) 30 mg/dL Negative A Glucose, UA (test code = 365) Negative Negative Ketones, UA (test code = 2514-8) Negative Negative Bilirubin, UA (test code = 05977-2) Negative Negative Blood, UA (test code = 88463-0) Small Negative A Nitrite, UA (test code = 5802-4) Negative Negative Leukocytes, UA (test code = 5799-2) Negative Negative Urobilinogen, UA (test code = 12819-5) 0.2 0.2-1.0 RBC, UA (test code = 66236-0) 51 See_Comment [Automated message] The system which [...] Occasional Squam Epithel, UA (test code = 28510-3) See_Comment [Automated message] The system which generated this result transmitted reference range: /HPF. The reference range was not used to interpret this result as normal/abnormal. Specimen Source (test code = 2795) LYNDSAY (test code = LYNDSAY) [employer] Instructor ID - [auto][employer] Instructor ID - tech Lab Interpretation (test code = 89915-0) [facility] Culture 2023-03-30 08:43:51* Test Item Value Reference Range Interpretation Comme nts Color, UA (test code = 5778-6) Yellow Clarity, UA (test code = 5767-9) Clear Specific [place], UA (test code = 5811-5) 1.033 1.001-1.035 pH, UA (test code = 5803-2) 6.0 5.0-8.0 Protein, UA (test code = 45399-2) 30 mg/dL Negative A Glucose, UA (test code = 365) Negative Negative Ketones, UA (test code = 2514-8) Negative Negative Bilirubin, UA (test code = 42956-8) Negative Negative Blood, UA (test code = 50709-3) Small Negative A Nitrite, UA (test code = 5802-4) Negative Negative Leukocytes, UA (test code = 5799-2) Negative Negative Urobilinogen, UA (test code = 55974-5) 0.2 0.2-1.0 RBC, UA (test code = 25224-7) 51 See_Comment [Automated message] The system which [...] Occasional Squam Epithel, UA (test code = 47854-4) See_Comment [Automated message] The system which generated this result transmitted reference range: /HPF. The reference range was not used to interpret this result as normal/abnormal. Specimen Source (test code = 2795) LYNDSAY (test code = LYNDSAY) [employer] Instructor ID - [auto][employer] Instructor ID - tech Lab Interpretation (test code = 65524-6) [facility] Culture 2023-03-30 08:43:51* Test Item Value Reference Range Interpretation Comme nts Color, UA (test code = 5778-6) Yellow Clarity, UA (test code = 5767-9) Clear Specific [place], UA (test code = 5811-5) 1.033 1.001-1.035 pH, UA (test code = 5803-2) 6.0 5.0-8.0 Protein, UA (test code = 83549-9) 30 mg/dL Negative A Glucose, UA (test code = 365) Negative Negative Ketones, UA (test code = 2514-8) Negative Negative Bilirubin, UA (test code = 74525-8) Negative Negative Blood, UA (test code = 89295-3) Small Negative A Nitrite, UA (test code = 5802-4) Negative Negative Leukocytes, UA (test code = 5799-2) Negative Negative Urobilinogen, UA (test code = 85060-8) 0.2 0.2-1.0 RBC, UA (test code = 46851-3) 51 See_Comment [Automated message] The system which [...] Occasional Squam Epithel, UA (test code = 53252-6) See_Comment [Automated message] The system which generated this result transmitted reference range: /HPF. The reference range was not used to interpret this result as normal/abnormal. Specimen Source (test code = 2795) LYNDSAY (test code = LYNDSAY) [employer] Instructor ID - [auto][employer] Instructor ID - tech Lab Interpretation (test code = 48313-5) [facility] Reflex to Culture 2023-03-30 08:43:51* Test Item Value Reference Range Interpretation Comme nts Color, UA (test code = 5778-6) Yellow Clarity, UA (test code = 5767-9) Clear Specific [place], UA (test code = 5811-5) 1.033 1.001-1.035 pH, UA (test code = 5803-2) 6.0 5.0-8.0 Protein, UA (test code = 75067-3) 30 mg/dL Negative A Glucose, UA (test code = 365) Negative Negative Ketones, UA (test code = 2514-8) Negative Negative Bilirubin, UA (test code = 46604-1) Negative Negative Blood, UA (test code = 72485-0) Small Negative A Nitrite, UA (test code = 5802-4) Negative Negative Leukocytes, UA (test code = 5799-2) Negative Negative Urobilinogen, UA (test code = 08326-5) 0.2 0.2-1.0 RBC, UA (test code = 66701-0) 51 See_Comment [Automated message] The system which [...] Occasional Squam Epithel, UA (test code = 50210-5) See_Comment [Automated message] The system which generated this result transmitted reference range: /HPF. The reference range was not used to interpret this result as normal/abnormal. Specimen Source (test code = 2795) LYNDSAY (test code = LYNDSAY) [employer] Instructor ID - [auto][employer] Instructor ID - tech Lab Interpretation (test code = 56602-4) [facility] Reflex to Culture 2023-03-30 08:43:51* Test Item Value Reference Range Interpretation Comme nts Color, UA (test code = 5778-6) Yellow Clarity, UA (test code = 5767-9) Clear Specific [place], UA (test code = 5811-5) 1.033 1.001-1.035 pH, UA (test code = 5803-2) 6.0 5.0-8.0 Protein, UA (test code = 72152-1) 30 mg/dL Negative A Glucose, UA (test code = 365) Negative Negative Ketones, UA (test code = 2514-8) Negative Negative Bilirubin, UA (test code = 29721-4) Negative Negative Blood, UA (test code = 77432-0) Small Negative A Nitrite, UA (test code = 5802-4) Negative Negative Leukocytes, UA (test code = 5799-2) Negative Negative Urobilinogen, UA (test code = 70069-6) 0.2 0.2-1.0 RBC, UA (test code = 33505-8) 51 See_Comment [Automated message] The system which [...] Occasional Squam Epithel, UA (test code = 73745-7) See_Comment [Automated message] The system which generated this result transmitted reference range: /HPF. The reference range was not used to interpret this result as normal/abnormal. Specimen Source (test code = 2795) LYNDSAY (test code = LYNDSAY) [employer] Instructor ID - [auto][employer] Instructor ID - tech Lab Interpretation (test code = 23806-1) [facility] Reflex to Culture 2023-03-30 08:43:51* Test Item Value Reference Range Interpretation Comme nts Color, UA (test code = 5778-6) Yellow Clarity, UA (test code = 5767-9) Clear Specific [place], UA (test code = 5811-5) 1.033 1.001-1.035 pH, UA (test code = 5803-2) 6.0 5.0-8.0 Protein, UA (test code = 25887-4) 30 mg/dL Negative A Glucose, UA (test code = 365) Negative Negative Ketones, UA (test code = 2514-8) Negative Negative Bilirubin, UA (test code = 99427-7) Negative Negative Blood, UA (test code = 76348-6) Small Negative A Nitrite, UA (test code = 5802-4) Negative Negative Leukocytes, UA (test code = 5799-2) Negative Negative Urobilinogen, UA (test code = 62750-7) 0.2 0.2-1.0 RBC, UA (test code = 51610-5) 51 See_Comment [Automated message] The system which [...] Occasional Squam Epithel, UA (test code = 93108-7) See_Comment [Automated message] The system which generated this result transmitted reference range: /HPF. The reference range was not used to interpret this result as normal/abnormal. Specimen Source (test code = 2795) LYNDSAY (test code = LYNDSAY) [employer] Instructor ID - [auto][employer] Instructor ID - tech Lab Interpretation (test code = 22375-0) [facility] Reflex to Culture 2023-03-30 08:43:51* Test Item Value Reference Range Interpretation Comme nts Color, UA (test code = 5778-6) Yellow Clarity, UA (test code = 5767-9) Clear Specific [place], UA (test code = 5811-5) 1.033 1.001-1.035 pH, UA (test code = 5803-2) 6.0 5.0-8.0 Protein, UA (test code = 49530-7) 30 mg/dL Negative A Glucose, UA (test code = 365) Negative Negative Ketones, UA (test code = 2514-8) Negative Negative Bilirubin, UA (test code = 97087-2) Negative Negative Blood, UA (test code = 06935-7) Small Negative A Nitrite, UA (test code = 5802-4) Negative Negative Leukocytes, UA (test code = 5799-2) Negative Negative Urobilinogen, UA (test code = 90837-4) 0.2 0.2-1.0 RBC, UA (test code = 33789-1) 51 See_Comment [Automated message] The system which [...] Occasional Squam Epithel, UA (test code = 05052-5) See_Comment [Automated message] The system which generated this result transmitted reference range: /HPF. The reference range was not used to interpret this result as normal/abnormal. Specimen Source (test code = 2795) LYNDSAY (test code = LYNDSAY) [employer] Instructor ID - [auto][employer] Instructor ID - tech Lab Interpretation (test code = 38116-7) [facility] Reflex [facility] Culture 2023-03-30 08:43:51* Test Item Value Reference Range Interpretation Comme nts Color, UA (test code = 5778-6) Yellow Clarity, UA (test code = 5767-9) Clear Specific [place], UA (test code = 5811-5) 1.033 1.001-1.035 pH, UA (test code = 5803-2) 6.0 5.0-8.0 Protein, UA (test code = 31774-6) 30 mg/dL Negative A Glucose, UA (test code = 365) Negative Negative Ketones, UA (test code = 2514-8) Negative Negative Bilirubin, UA (test code = 44682-4) Negative Negative Blood, UA (test code = 07798-7) Small Negative A Nitrite, UA (test code = 5802-4) Negative Negative Leukocytes, UA (test code = 5799-2) Negative Negative Urobilinogen, UA (test code = 73051-8) 0.2 0.2-1.0 RBC, UA (test code = 79768-3) 51 See_Comment [Automated message] The system which [...] Occasional Squam Epithel, UA (test code = 98711-8) See_Comment [Automated message] The system which generated this result transmitted reference range: /HPF. The reference range was not used to interpret this result as normal/abnormal. Specimen Source (test code = 2795) LYNDSAY (test code = LYNDSAY) [employer] Instructor ID - [auto][employer] Instructor ID - tech Lab Interpretation (test code = 46741-6) [facility] Reflex to Culture 2023-03-30 08:43:51* Test Item Value Reference Range Interpretation Comme nts Color, UA (test code = 5778-6) Yellow Clarity, UA (test code = 5767-9) Clear Specific [place], UA (test code = 5811-5) 1.033 1.001-1.035 pH, UA (test code = 5803-2) 6.0 5.0-8.0 Protein, UA (test code = 18881-5) 30 mg/dL Negative A Glucose, UA (test code = 365) Negative Negative Ketones, UA (test code = 2514-8) Negative Negative Bilirubin, UA (test code = 19353-5) Negative Negative Blood, UA (test code = 32957-4) Small Negative A Nitrite, UA (test code = 5802-4) Negative Negative Leukocytes, UA (test code = 5799-2) Negative Negative Urobilinogen, UA (test code = 87557-0) 0.2 0.2-1.0 RBC, UA (test code = 65304-7) 51 See_Comment [Automated message] The system which [...] Occasional Squam Epithel, UA (test code = 33039-3) See_Comment [Automated message] The system which generated this result transmitted reference range: /HPF. The reference range was not used to interpret this result as normal/abnormal. Specimen Source (test code = 2795) LYNDSAY (test code = LYNDSAY) [employer] Instructor ID - [auto][employer] Instructor ID - tech Lab Interpretation (test code = 17137-4) [facility] Reflex to Culture 2023-03-30 08:43:51* Test Item Value Reference Range Interpretation Comme nts Color, UA (test code = 5778-6) Yellow Clarity, UA (test code = 5767-9) Clear Specific [place], UA (test code = 5811-5) 1.033 1.001-1.035 pH, UA (test code = 5803-2) 6.0 5.0-8.0 Protein, UA (test code = 77151-5) 30 mg/dL Negative A Glucose, UA (test code = 365) Negative Negative Ketones, UA (test code = 2514-8) Negative Negative Bilirubin, UA (test code = 43983-6) Negative Negative Blood, UA (test code = 18086-4) Small Negative A Nitrite, UA (test code = 5802-4) Negative Negative Leukocytes, UA (test code = 5799-2) Negative Negative Urobilinogen, UA (test code = 79363-7) 0.2 0.2-1.0 RBC, UA (test code = 65622-4) 51 See_Comment [Automated message] The system which [...] Occasional Squam Epithel, UA (test code = 85512-9) See_Comment [Automated message] The system which generated this result transmitted reference range: /HPF. The reference range was not used to interpret this result as normal/abnormal. Specimen Source (test code = 2795) LYNDSAY (test code = LYNDSAY) [employer] Instructor ID - [auto][employer] Instructor ID - tech Lab Interpretation (test code = 54779-0) [facility] Reflex to Culture 2023-03-30 08:43:51* Test Item Value Reference Range Interpretation Comme nts Color, UA (test code = 5778-6) Yellow Clarity, UA (test code = 5767-9) Clear Specific [place], UA (test code = 5811-5) 1.033 1.001-1.035 pH, UA (test code = 5803-2) 6.0 5.0-8.0 Protein, UA (test code = 85122-1) 30 mg/dL Negative A Glucose, UA (test code = 365) Negative Negative Ketones, UA (test code = 2514-8) Negative Negative Bilirubin, UA (test code = 78782-9) Negative Negative Blood, UA (test code = 28536-6) Small Negative A Nitrite, UA (test code = 5802-4) Negative Negative Leukocytes, UA (test code = 5799-2) Negative Negative Urobilinogen, UA (test code = 27436-4) 0.2 0.2-1.0 RBC, UA (test code = 56663-1) 51 See_Comment [Automated message] The system which [...] Occasional Squam Epithel, UA (test code = 38714-6) See_Comment [Automated message] The system which generated this result transmitted reference range: /HPF. The reference range was not used to interpret this result as normal/abnormal. Specimen Source (test code = 2795) LYNDSAY (test code = LYNDSAY) [employer] Instructor ID - [auto][employer] Instructor ID - tech Lab Interpretation (test code = 59529-3) [facility]-30 08:43:51* Test Item Value Reference Range Interpretation Comme nts Color, UA (test code = 5778-6) Yellow Clarity, UA (test code = 5767-9) Clear Specific [place], UA (test code = 5811-5) 1.033 1.001-1.035 pH, UA (test code = 5803-2) 6.0 5.0-8.0 Protein, UA (test code = 22299-4) 30 mg/dL Negative A Glucose, UA (test code = 365) Negative Negative Ketones, UA (test code = 2514-8) Negative Negative Bilirubin, UA (test code = 41935-1) Negative Negative Blood, UA (test code = 44242-7) Small Negative A Nitrite, UA (test code = 5802-4) Negative Negative Leukocytes, UA (test code = 5799-2) Negative Negative Urobilinogen, UA (test code = 61351-3) 0.2 0.2-1.0 RBC, UA (test code = 92390-6) 51 See_Comment [Automated message] The system which [...] Occasional Squam Epithel, UA (test code = 74202-6) See_Comment [Automated message] The system which generated this result transmitted reference range: /HPF. The reference range was not used to interpret this result as normal/abnormal. Specimen Source (test code = 2795) LYNDSAY (test code = LYNDSAY) [employer] Instructor ID - [auto][employer] Instructor ID - tech Lab Interpretation (test code = 46217-4) [facility] Culture 2023-03-30 08:43:51* Test Item Value Reference Range Interpretation Comme nts Color, UA (test code = 5778-6) Yellow Clarity, UA (test code = 5767-9) Clear Specific [place], UA (test code = 5811-5) 1.033 1.001-1.035 pH, UA (test code = 5803-2) 6.0 5.0-8.0 Protein, UA (test code = 90333-8) 30 mg/dL Negative A Glucose, UA (test code = 365) Negative Negative Ketones, UA (test code = 2514-8) Negative Negative Bilirubin, UA (test code = 82126-5) Negative Negative Blood, UA (test code = 51377-7) Small Negative A Nitrite, UA (test code = 5802-4) Negative Negative Leukocytes, UA (test code = 5799-2) Negative Negative Urobilinogen, UA (test code = 31112-9) 0.2 0.2-1.0 RBC, UA (test code = 64709-2) 51 See_Comment [Automated message] The system which [...] Occasional Squam Epithel, UA (test code = 94671-5) See_Comment [Automated message] The system which generated this result transmitted reference range: /HPF. The reference range was not used to interpret this result as normal/abnormal. Specimen Source (test code = 2795) LYNDSAY (test code = LYNDSAY) [employer] Instructor ID - [auto][employer] Instructor ID - tech Lab Interpretation (test code = 54825-9) [facility] 2023-[facility]-30 08:43:51* Test Item Value Reference Range Interpretation Comme nts Color, UA (test code = 5778-6) Yellow Clarity, UA (test code = 5767-9) Clear Specific [place], UA (test code = 5811-5) 1.033 1.001-1.035 pH, UA (test code = 5803-2) 6.0 5.0-8.0 Protein, UA (test code = 54434-6) 30 mg/dL Negative A Glucose, UA (test code = 365) Negative Negative Ketones, UA (test code = 2514-8) Negative Negative Bilirubin, UA (test code = 26103-0) Negative Negative Blood, UA (test code = 00695-9) Small Negative A Nitrite, UA (test code = 5802-4) Negative Negative Leukocytes, UA (test code = 5799-2) Negative Negative Urobilinogen, UA (test code = 78748-3) 0.2 0.2-1.0 RBC, UA (test code = 63258-7) 51 See_Comment [Automated message] The system which [...] Occasional Squam Epithel, UA (test code = 69140-2) See_Comment [Automated message] The system which generated this result transmitted reference range: /HPF. The reference range was not used to interpret this result as normal/abnormal. Specimen Source (test code = 2795) LYNDSAY (test code = LYNDSAY) [employer] Instructor ID - [auto][employer] Instructor ID - tech Lab Interpretation (test code = 42408-4) [facility] Reflex [facility] Culture 2023-03-30 08:43:51* Test Item Value Reference Range Interpretation Comme nts Color, UA (test code = 5778-6) Yellow Clarity, UA (test code = 5767-9) Clear Specific [place], UA (test code = 5811-5) 1.033 1.001-1.035 pH, UA (test code = 5803-2) 6.0 5.0-8.0 Protein, UA (test code = 07292-3) 30 mg/dL Negative A Glucose, UA (test code = 365) Negative Negative Ketones, UA (test code = 2514-8) Negative Negative Bilirubin, UA (test code = 97627-2) Negative Negative Blood, UA (test code = 01476-6) Small Negative A Nitrite, UA (test code = 5802-4) Negative Negative Leukocytes, UA (test code = 5799-2) Negative Negative Urobilinogen, UA (test code = 97651-8) 0.2 0.2-1.0 RBC, UA (test code = 25138-8) 51 See_Comment [Automated message] The system which [...] Occasional Squam Epithel, UA (test code = 44678-1) See_Comment [Automated message] The system which generated this result transmitted reference range: /HPF. The reference range was not used to interpret this result as normal/abnormal. Specimen Source (test code = 2795) LYNDSAY (test code = LYNDSAY) [employer] Instructor ID - [auto][employer] Instructor ID - tech Lab Interpretation (test code = 85732-8) [facility] Culture 2023-03-30 08:43:51* Test Item Value Reference Range Interpretation Comme nts Color, UA (test code = 5778-6) Yellow Clarity, UA (test code = 5767-9) Clear Specific [place], UA (test code = 5811-5) 1.033 1.001-1.035 pH, UA (test code = 5803-2) 6.0 5.0-8.0 Protein, UA (test code = 68662-4) 30 mg/dL Negative A Glucose, UA (test code = 365) Negative Negative Ketones, UA (test code = 2514-8) Negative Negative Bilirubin, UA (test code = 03463-0) Negative Negative Blood, UA (test code = 09990-7) Small Negative A Nitrite, UA (test code = 5802-4) Negative Negative Leukocytes, UA (test code = 5799-2) Negative Negative Urobilinogen, UA (test code = 95066-7) 0.2 0.2-1.0 RBC, UA (test code = 88242-3) 51 See_Comment [Automated message] The system which [...] Occasional Squam Epithel, UA (test code = 76686-0) See_Comment [Automated message] The system which generated this result transmitted reference range: /HPF. The reference range was not used to interpret this result as normal/abnormal. Specimen Source (test code = 2795) LYNDSAY (test code = LYNDSAY) [employer] Instructor ID - [auto][employer] Instructor ID - tech Lab Interpretation (test code = 71922-3) [facility] Culture 2023-03-30 08:43:51* Test Item Value Reference Range Interpretation Comme nts Color, UA (test code = 5778-6) Yellow Clarity, UA (test code = 5767-9) Clear Specific [place], UA (test code = 5811-5) 1.033 1.001-1.035 pH, UA (test code = 5803-2) 6.0 5.0-8.0 Protein, UA (test code = 66474-8) 30 mg/dL Negative A Glucose, UA (test code = 365) Negative Negative Ketones, UA (test code = 2514-8) Negative Negative Bilirubin, UA (test code = 41323-0) Negative Negative Blood, UA (test code = 46915-4) Small Negative A Nitrite, UA (test code = 5802-4) Negative Negative Leukocytes, UA (test code = 5799-2) Negative Negative Urobilinogen, UA (test code = 92745-6) 0.2 0.2-1.0 RBC, UA (test code = 69827-7) 51 See_Comment [Automated message] The system which [...] Occasional Squam Epithel, UA (test code = 82263-2) See_Comment [Automated message] The system which generated this result transmitted reference range: /HPF. The reference range was not used to interpret this result as normal/abnormal. Specimen Source (test code = 2795) LYNDSAY (test code = LYNDSAY) [employer] Instructor ID - [auto][employer] Instructor ID - tech Lab Interpretation (test code = 24038-4) [facility] Culture 2023-03-30 08:43:51* Test Item Value Reference Range Interpretation Comme nts Color, UA (test code = 5778-6) Yellow Clarity, UA (test code = 5767-9) Clear Specific [place], UA (test code = 5811-5) 1.033 1.001-1.035 pH, UA (test code = 5803-2) 6.0 5.0-8.0 Protein, UA (test code = 00152-2) 30 mg/dL Negative A Glucose, UA (test code = 365) Negative Negative Ketones, UA (test code = 2514-8) Negative Negative Bilirubin, UA (test code = 37343-6) Negative Negative Blood, UA (test code = 85120-0) Small Negative A Nitrite, UA (test code = 5802-4) Negative Negative Leukocytes, UA (test code = 5799-2) Negative Negative Urobilinogen, UA (test code = 11586-2) 0.2 0.2-1.0 RBC, UA (test code = 33368-3) 51 See_Comment [Automated message] The system which [...] Occasional Squam Epithel, UA (test code = 64843-3) See_Comment [Automated message] The system which generated this result transmitted reference range: /HPF. The reference range was not used to interpret this result as normal/abnormal. Specimen Source (test code = 2795) LYNDSAY (test code = LYNDSAY) [employer] Instructor ID - [auto][employer] Instructor ID - tech Lab Interpretation (test code = 22634-6) [facility] Reflex [facility] Culture 2023-03-30 08:43:51* Test Item Value Reference Range Interpretation Comme nts Color, UA (test code = 5778-6) Yellow Clarity, UA (test code = 5767-9) Clear Specific [place], UA (test code = 5811-5) 1.033 1.001-1.035 pH, UA (test code = 5803-2) 6.0 5.0-8.0 Protein, UA (test code = 08490-6) 30 mg/dL Negative A Glucose, UA (test code = 365) Negative Negative Ketones, UA (test code = 2514-8) Negative Negative Bilirubin, UA (test code = 77549-6) Negative Negative Blood, UA (test code = 81400-9) Small Negative A Nitrite, UA (test code = 5802-4) Negative Negative Leukocytes, UA (test code = 5799-2) Negative Negative Urobilinogen, UA (test code = 66862-1) 0.2 0.2-1.0 RBC, UA (test code = 11673-7) 51 See_Comment [Automated message] The system which [...] Occasional Squam Epithel, UA (test code = 55276-0) See_Comment [Automated message] The system which generated this result transmitted reference range: /HPF. The reference range was not used to interpret this result as normal/abnormal. Specimen Source (test code = 2795) LYNDSAY (test code = LYNDSAY) [employer] Instructor ID - [auto][employer] Instructor ID - tech Lab Interpretation (test code = 47372-0) [facility]lex [facility] Culture 2023-03-30 08:43:51* Test Item Value Reference Range Interpretation Comme nts Color, UA (test code = 5778-6) Yellow Clarity, UA (test code = 5767-9) Clear Specific [place], UA (test code = 5811-5) 1.033 1.001-1.035 pH, UA (test code = 5803-2) 6.0 5.0-8.0 Protein, UA (test code = 62204-3) 30 mg/dL Negative A Glucose, UA (test code = 365) Negative Negative Ketones, UA (test code = 2514-8) Negative Negative Bilirubin, UA (test code = 08207-5) Negative Negative Blood, UA (test code = 81266-8) Small Negative A Nitrite, UA (test code = 5802-4) Negative Negative Leukocytes, UA (test code = 5799-2) Negative Negative Urobilinogen, UA (test code = 45402-9) 0.2 0.2-1.0 RBC, UA (test code = 09711-6) 51 See_Comment [Automated message] The system which [...] Occasional Squam Epithel, UA (test code = 97087-1) See_Comment [Automated message] The system which generated this result transmitted reference range: /HPF. The reference range was not used to interpret this result as normal/abnormal. Specimen Source (test code = 2795) LYNDSAY (test code = LYNDSAY) [employer] Instructor ID - [auto][employer] Instructor ID - tech Lab Interpretation (test code = 83528-8) [facility] Reflex [facility] Culture 2023-03-30 08:43:51* Test Item Value Reference Range Interpretation Comme nts Color, UA (test code = 5778-6) Yellow Clarity, UA (test code = 5767-9) Clear Specific [place], UA (test code = 5811-5) 1.033 1.001-1.035 pH, UA (test code = 5803-2) 6.0 5.0-8.0 Protein, UA (test code = 84029-0) 30 mg/dL Negative A Glucose, UA (test code = 365) Negative Negative Ketones, UA (test code = 2514-8) Negative Negative Bilirubin, UA (test code = 78774-8) Negative Negative Blood, UA (test code = 49693-8) Small Negative A Nitrite, UA (test code = 5802-4) Negative Negative Leukocytes, UA (test code = 5799-2) Negative Negative Urobilinogen, UA (test code = 94441-6) 0.2 0.2-1.0 RBC, UA (test code = 48304-5) 51 See_Comment [Automated message] The system which [...] Occasional Squam Epithel, UA (test code = 28719-8) See_Comment [Automated message] The system which generated this result transmitted reference range: /HPF. The reference range was not used to interpret this result as normal/abnormal. Specimen Source (test code = 2795) LYNDSAY (test code = LYNDSAY) [employer] Instructor ID - [auto][employer] Instructor ID - tech Lab Interpretation (test code = 48614-7) [facility] Reflex [facility] Culture 2023-03-30 08:43:51* Test Item Value Reference Range Interpretation Comme nts Color, UA (test code = 5778-6) Yellow Clarity, UA (test code = 5767-9) Clear Specific [place], UA (test code = 5811-5) 1.033 1.001-1.035 pH, UA (test code = 5803-2) 6.0 5.0-8.0 Protein, UA (test code = 25635-0) 30 mg/dL Negative A Glucose, UA (test code = 365) Negative Negative Ketones, UA (test code = 2514-8) Negative Negative Bilirubin, UA (test code = 91826-9) Negative Negative Blood, UA (test code = 39385-1) Small Negative A Nitrite, UA (test code = 5802-4) Negative Negative Leukocytes, UA (test code = 5799-2) Negative Negative Urobilinogen, UA (test code = 90769-2) 0.2 0.2-1.0 RBC, UA (test code = 94176-9) 51 See_Comment [Automated message] The system which [...] Occasional Squam Epithel, UA (test code = 89381-6) See_Comment [Automated message] The system which generated this result transmitted reference range: /HPF. The reference range was not used to interpret this result as normal/abnormal. Specimen Source (test code = 2795) LYNDSAY (test code = LYNDSAY) [employer] Instructor ID - [auto][employer] Instructor ID - tech Lab Interpretation (test code = 96029-7) [facility] Reflex [facility] Culture 2023-03-30 08:43:51* Test Item Value Reference Range Interpretation Comme nts Color, UA (test code = 5778-6) Yellow Clarity, UA (test code = 5767-9) Clear Specific [place], UA (test code = 5811-5) 1.033 1.001-1.035 pH, UA (test code = 5803-2) 6.0 5.0-8.0 Protein, UA (test code = 36461-3) 30 mg/dL Negative A Glucose, UA (test code = 365) Negative Negative Ketones, UA (test code = 2514-8) Negative Negative Bilirubin, UA (test code = 20618-4) Negative Negative Blood, UA (test code = 73156-8) Small Negative A Nitrite, UA (test code = 5802-4) Negative Negative Leukocytes, UA (test code = 5799-2) Negative Negative Urobilinogen, UA (test code = 70638-0) 0.2 0.2-1.0 RBC, UA (test code = 27839-9) 51 See_Comment [Automated message] The system which [...] Occasional Squam Epithel, UA (test code = 19253-0) See_Comment [Automated message] The system which generated this result transmitted reference range: /HPF. The reference range was not used to interpret this result as normal/abnormal. Specimen Source (test code = 2795) LYNDSAY (test code = LYNDSAY) [employer] Instructor ID - [auto][employer] Instructor ID - tech Lab Interpretation (test code = 06051-3) [facility] Reflex [facility] Culture 2023-03-30 08:43:51* Test Item Value Reference Range Interpretation Comme nts Color, UA (test code = 5778-6) Yellow Clarity, UA (test code = 5767-9) Clear Specific [place], UA (test code = 5811-5) 1.033 1.001-1.035 pH, UA (test code = 5803-2) 6.0 5.0-8.0 Protein, UA (test code = 91246-2) 30 mg/dL Negative A Glucose, UA (test code = 365) Negative Negative Ketones, UA (test code = 2514-8) Negative Negative Bilirubin, UA (test code = 94862-2) Negative Negative Blood, UA (test code = 27963-7) Small Negative A Nitrite, UA (test code = 5802-4) Negative Negative Leukocytes, UA (test code = 5799-2) Negative Negative Urobilinogen, UA (test code = 77172-7) 0.2 0.2-1.0 RBC, UA (test code = 94256-4) 51 See_Comment [Automated message] The system which [...] Occasional Squam Epithel, UA (test code = 68926-5) See_Comment [Automated message] The system which generated this result transmitted reference range: /HPF. The reference range was not used to interpret this result as normal/abnormal. Specimen Source (test code = 2795) LYNDSAY (test code = LYNDSAY) [employer] Instructor ID - [auto][employer] Instructor ID - tech Lab Interpretation (test code = 00873-7) [facility] Reflex to Culture 2023-03-30 08:43:51* Test Item Value Reference Range Interpretation Comme nts Color, UA (test code = 5778-6) Yellow Clarity, UA (test code = 5767-9) Clear Specific [place], UA (test code = 5811-5) 1.033 1.001-1.035 pH, UA (test code = 5803-2) 6.0 5.0-8.0 Protein, UA (test code = 93763-0) 30 mg/dL Negative A Glucose, UA (test code = 365) Negative Negative Ketones, UA (test code = 2514-8) Negative Negative Bilirubin, UA (test code = 88156-1) Negative Negative Blood, UA (test code = 88412-2) Small Negative A Nitrite, UA (test code = 5802-4) Negative Negative Leukocytes, UA (test code = 5799-2) Negative Negative Urobilinogen, UA (test code = 94800-2) 0.2 0.2-1.0 RBC, UA (test code = 08464-6) 51 See_Comment [Automated message] The system which [...] Occasional Squam Epithel, UA (test code = 22999-3) See_Comment [Automated message] The system which generated this result transmitted reference range: /HPF. The reference range was not used to interpret this result as normal/abnormal. Specimen Source (test code = 2795) LYNDSAY (test code = LYNDSAY) [employer] Instructor ID - [auto][employer] Instructor ID - tech Lab Interpretation (test code = 83563-4) [facility] Reflex to Culture 2023-03-30 08:43:51* Test Item Value Reference Range Interpretation Comme nts Color, UA (test code = 5778-6) Yellow Clarity, UA (test code = 5767-9) Clear Specific [place], UA (test code = 5811-5) 1.033 1.001-1.035 pH, UA (test code = 5803-2) 6.0 5.0-8.0 Protein, UA (test code = 04306-3) 30 mg/dL Negative A Glucose, UA (test code = 365) Negative Negative Ketones, UA (test code = 2514-8) Negative Negative Bilirubin, UA (test code = 46013-0) Negative Negative Blood, UA (test code = 30915-4) Small Negative A Nitrite, UA (test code = 5802-4) Negative Negative Leukocytes, UA (test code = 5799-2) Negative Negative Urobilinogen, UA (test code = 67852-2) 0.2 0.2-1.0 RBC, UA (test code = 87869-8) 51 See_Comment [Automated message] The system which [...] Occasional Squam Epithel, UA (test code = 26430-8) See_Comment [Automated message] The system which generated this result transmitted reference range: /HPF. The reference range was not used to interpret this result as normal/abnormal. Specimen Source (test code = 2795) LYNDSAY (test code = LYNDSAY) [employer] Instructor ID - [auto][employer] Instructor ID - tech Lab Interpretation (test code = 01664-1) [facility] Reflex to Culture 2023-03-30 08:43:51* Test Item Value Reference Range Interpretation Comme nts Color, UA (test code = 5778-6) Yellow Clarity, UA (test code = 5767-9) Clear Specific [place], UA (test code = 5811-5) 1.033 1.001-1.035 pH, UA (test code = 5803-2) 6.0 5.0-8.0 Protein, UA (test code = 54852-9) 30 mg/dL Negative A Glucose, UA (test code = 365) Negative Negative Ketones, UA (test code = 2514-8) Negative Negative Bilirubin, UA (test code = 01523-6) Negative Negative Blood, UA (test code = 33793-1) Small Negative A Nitrite, UA (test code = 5802-4) Negative Negative Leukocytes, UA (test code = 5799-2) Negative Negative Urobilinogen, UA (test code = 36122-1) 0.2 0.2-1.0 RBC, UA (test code = 59661-4) 51 See_Comment [Automated message] The system which [...] Occasional Squam Epithel, UA (test code = 11194-5) See_Comment [Automated message] The system which generated this result transmitted reference range: /HPF. The reference range was not used to interpret this result as normal/abnormal. Specimen Source (test code = 2795) LYNDSAY (test code = LYNDSAY) [employer] Instructor ID - [auto][employer] Instructor ID - tech Lab Interpretation (test code = 70545-0) [facility] Reflex to Culture 2023-03-30 08:43:51* Test Item Value Reference Range Interpretation Comme nts Color, UA (test code = 5778-6) Yellow Clarity, UA (test code = 5767-9) Clear Specific [place], UA (test code = 5811-5) 1.033 1.001-1.035 pH, UA (test code = 5803-2) 6.0 5.0-8.0 Protein, UA (test code = 56606-8) 30 mg/dL Negative A Glucose, UA (test code = 365) Negative Negative Ketones, UA (test code = 2514-8) Negative Negative Bilirubin, UA (test code = 49943-2) Negative Negative Blood, UA (test code = 70357-1) Small Negative A Nitrite, UA (test code = 5802-4) Negative Negative Leukocytes, UA (test code = 5799-2) Negative Negative Urobilinogen, UA (test code = 92667-8) 0.2 0.2-1.0 RBC, UA (test code = 18433-0) 51 See_Comment [Automated message] The system which [...] Occasional Squam Epithel, UA (test code = 05793-6) See_Comment [Automated message] The system which generated this result transmitted reference range: /HPF. The reference range was not used to interpret this result as normal/abnormal. Specimen Source (test code = 2795) LYNDSAY (test code = LYNDSAY) [employer] Instructor ID - [auto][employer] Instructor ID - tech Lab Interpretation (test code = 08830-7) [facility] Reflex to Culture 2023-03-30 08:43:51* Test Item Value Reference Range Interpretation Comme nts Color, UA (test code = 5778-6) Yellow Clarity, UA (test code = 5767-9) Clear Specific [place], UA (test code = 5811-5) 1.033 1.001-1.035 pH, UA (test code = 5803-2) 6.0 5.0-8.0 Protein, UA (test code = 54261-8) 30 mg/dL Negative A Glucose, UA (test code = 365) Negative Negative Ketones, UA (test code = 2514-8) Negative Negative Bilirubin, UA (test code = 95887-4) Negative Negative Blood, UA (test code = 99098-3) Small Negative A Nitrite, UA (test code = 5802-4) Negative Negative Leukocytes, UA (test code = 5799-2) Negative Negative Urobilinogen, UA (test code = 75836-7) 0.2 0.2-1.0 RBC, UA (test code = 90486-9) 51 See_Comment [Automated message] The system which [...] Occasional Squam Epithel, UA (test code = 75112-1) See_Comment [Automated message] The system which generated this result transmitted reference range: /HPF. The reference range was not used to interpret this result as normal/abnormal. Specimen Source (test code = 2795) LYNDSAY (test code = LYNDSAY) [employer] Instructor ID - [auto][employer] Instructor ID - tech Lab Interpretation (test code = 33755-2) [facility] Reflex to Culture 2023-03-30 08:43:51* Test Item Value Reference Range Interpretation Comme nts Color, UA (test code = 5778-6) Yellow Clarity, UA (test code = 5767-9) Clear Specific [place], UA (test code = 5811-5) 1.033 1.001-1.035 pH, UA (test code = 5803-2) 6.0 5.0-8.0 Protein, UA (test code = 93156-5) 30 mg/dL Negative A Glucose, UA (test code = 365) Negative Negative Ketones, UA (test code = 2514-8) Negative Negative Bilirubin, UA (test code = 24787-6) Negative Negative Blood, UA (test code = 98090-3) Small Negative A Nitrite, UA (test code = 5802-4) Negative Negative Leukocytes, UA (test code = 5799-2) Negative Negative Urobilinogen, UA (test code = 08061-1) 0.2 0.2-1.0 RBC, UA (test code = 81827-6) 51 See_Comment [Automated message] The system which [...] Occasional Squam Epithel, UA (test code = 66764-1) See_Comment [Automated message] The system which generated this result transmitted reference range: /HPF. The reference range was not used to interpret this result as normal/abnormal. Specimen Source (test code = 2795) LYNDSAY (test code = LYNDSAY) [employer] Instructor ID - [auto][employer] Instructor ID - tech Lab Interpretation (test code = 96794-8) [facility] Culture 2023-03-30 08:43:51* Test Item Value Reference Range Interpretation Comme nts Color, UA (test code = 5778-6) Yellow Clarity, UA (test code = 5767-9) Clear Specific [place], UA (test code = 5811-5) 1.033 1.001-1.035 pH, UA (test code = 5803-2) 6.0 5.0-8.0 Protein, UA (test code = 20188-9) 30 mg/dL Negative A Glucose, UA (test code = 365) Negative Negative Ketones, UA (test code = 2514-8) Negative Negative Bilirubin, UA (test code = 88923-0) Negative Negative Blood, UA (test code = 85052-5) Small Negative A Nitrite, UA (test code = 5802-4) Negative Negative Leukocytes, UA (test code = 5799-2) Negative Negative Urobilinogen, UA (test code = 02693-5) 0.2 0.2-1.0 RBC, UA (test code = 26748-5) 51 See_Comment [Automated message] The system which [...] Occasional Squam Epithel, UA (test code = 04305-6) See_Comment [Automated message] The system which generated this result transmitted reference range: /HPF. The reference range was not used to interpret this result as normal/abnormal. Specimen Source (test code = 2795) LYNDSAY (test code = LYNDSAY) [employer] Instructor ID - [auto][employer] Instructor ID - tech Lab Interpretation (test code = 04159-4) [facility] Reflex to Culture 2023-03-30 08:43:51* Test Item Value Reference Range Interpretation Comme nts Color, UA (test code = 5778-6) Yellow Clarity, UA (test code = 5767-9) Clear Specific [place], UA (test code = 5811-5) 1.033 1.001-1.035 pH, UA (test code = 5803-2) 6.0 5.0-8.0 Protein, UA (test code = 96300-3) 30 mg/dL Negative A Glucose, UA (test code = 365) Negative Negative Ketones, UA (test code = 2514-8) Negative Negative Bilirubin, UA (test code = 74931-3) Negative Negative Blood, UA (test code = 29129-1) Small Negative A Nitrite, UA (test code = 5802-4) Negative Negative Leukocytes, UA (test code = 5799-2) Negative Negative Urobilinogen, UA (test code = 91070-1) 0.2 0.2-1.0 RBC, UA (test code = 50584-3) 51 See_Comment [Automated message] The system which [...] Occasional Squam Epithel, UA (test code = 97252-9) See_Comment [Automated message] The system which generated this result transmitted reference range: /HPF. The reference range was not used to interpret this result as normal/abnormal. Specimen Source (test code = 2795) LYNDSAY (test code = LYNDSAY) [employer] Instructor ID - [auto][employer] Instructor ID - tech Lab Interpretation (test code = 60598-8) [facility] 2023-03-30 08:43:51* Test Item Value Reference Range Interpretation Comme nts Color, UA (test code = 5778-6) Yellow Clarity, UA (test code = 5767-9) Clear Specific [place], UA (test code = 5811-5) 1.033 1.001-1.035 pH, UA (test code = 5803-2) 6.0 5.0-8.0 Protein, UA (test code = 25794-8) 30 mg/dL Negative A Glucose, UA (test code = 365) Negative Negative Ketones, UA (test code = 2514-8) Negative Negative Bilirubin, UA (test code = 46017-9) Negative Negative Blood, UA (test code = 20428-1) Small Negative A Nitrite, UA (test code = 5802-4) Negative Negative Leukocytes, UA (test code = 5799-2) Negative Negative Urobilinogen, UA (test code = 88699-8) 0.2 0.2-1.0 RBC, UA (test code = 99330-8) 51 See_Comment [Automated message] The system which [...] Occasional Squam Epithel, UA (test code = 22448-9) See_Comment [Automated message] The system which generated this result transmitted reference range: /HPF. The reference range was not used to interpret this result as normal/abnormal. Specimen Source (test code = 2795) LYNDSAY (test code = LYNDSAY) [employer] Instructor ID - [auto][employer] Instructor ID - tech Lab Interpretation (test code = 98035-3) [facility] Reflex to Culture 2023-03-30 08:43:51* Test Item Value Reference Range Interpretation Comme nts Color, UA (test code = 5778-6) Yellow Clarity, UA (test code = 5767-9) Clear Specific [place], UA (test code = 5811-5) 1.033 1.001-1.035 pH, UA (test code = 5803-2) 6.0 5.0-8.0 Protein, UA (test code = 19742-1) 30 mg/dL Negative A Glucose, UA (test code = 365) Negative Negative Ketones, UA (test code = 2514-8) Negative Negative Bilirubin, UA (test code = 05270-6) Negative Negative Blood, UA (test code = 04049-9) Small Negative A Nitrite, UA (test code = 5802-4) Negative Negative Leukocytes, UA (test code = 5799-2) Negative Negative Urobilinogen, UA (test code = 68257-1) 0.2 0.2-1.0 RBC, UA (test code = 54552-0) 51 See_Comment [Automated message] The system which [...] Occasional Squam Epithel, UA (test code = 77233-8) See_Comment [Automated message] The system which generated this result transmitted reference range: /HPF. The reference range was not used to interpret this result as normal/abnormal. Specimen Source (test code = 2795) LYNDSAY (test code = LYNDSAY) [employer] Instructor ID - [auto][employer] Instructor ID - tech Lab Interpretation (test code = 26553-3) [facility] Reflex [facility] Culture 2023-03-30 08:43:51* Test Item Value Reference Range Interpretation Comme nts Color, UA (test code = 5778-6) Yellow Clarity, UA (test code = 5767-9) Clear Specific [place], UA (test code = 5811-5) 1.033 1.001-1.035 pH, UA (test code = 5803-2) 6.0 5.0-8.0 Protein, UA (test code = 96265-2) 30 mg/dL Negative A Glucose, UA (test code = 365) Negative Negative Ketones, UA (test code = 2514-8) Negative Negative Bilirubin, UA (test code = 77997-3) Negative Negative Blood, UA (test code = 16922-1) Small Negative A Nitrite, UA (test code = 5802-4) Negative Negative Leukocytes, UA (test code = 5799-2) Negative Negative Urobilinogen, UA (test code = 25829-9) 0.2 0.2-1.0 RBC, UA (test code = 09416-0) 51 See_Comment [Automated message] The system which [...] Occasional Squam Epithel, UA (test code = 71284-1) See_Comment [Automated message] The system which generated this result transmitted reference range: /HPF. The reference range was not used to interpret this result as normal/abnormal. Specimen Source (test code = 2795) LYNDSAY (test code = LYNDSAY) [employer] Instructor ID - [auto][employer] Instructor ID - tech Lab Interpretation (test code = 66526-9) [facility]LEX URINE [id number] 08:43:51 * Test Item Value Reference Range [...] < /HPF SOURCE(BEAKER) (test code = 2795) [employer] Instructor ID - [auto][employer] Instructor ID - techCOMPREHENSIVE METABOLIC BSZHS6224-07-35 04:37:29* Test Item Value Reference Range Interpretation [...] GFR is not applicable for dialysis patients [employer] Instructor ID - MATT BPT/TYNJ5862-08-60 04:30:17* Test Item Value Reference Range Interpretation Comme nts PROTIME (BEAKER) (test code = 759) 13.8 seconds 11.9-14.2 INR (BEAKER) (test code = 370) 1.13 See_Comment [Automated [employer] ge] The system which generated this result [...] code = 413) 0 /100 WBC 0-0 [id number]-[id number] 00:00:00Ordered by an unspecified provider.[facility]KG-EEOGLES4850-85-94 00:00:00Ordered by an unspecified provider. [facility]-IXWDJLL8022-68-39 00:00:00Ordered by an unspecified provider.[facility]MAGN[facility]IUM2023-05-25 17:14:06* Test Item Value Reference Range Interpretation Comme nts MAGNESIUM (test code = 9414694033) 1.9 mg/dL 1.7-2.4 Lab Interpretation (test cod e = 34404-7) Normal [facility]. METABOLIC PANEL (08790)2022-12-11 15:16:25* Test Item Value Reference Range Interpretation Comme nts NA (test code = 2989043598) 139 mmol/L 135-145 K (test code = 8558011740) 3.5 mmol/L 3.5-5.0 CL (test code = 2259333234) 107 mmol/L 98-108 CO2 TOTAL (test code = 3050044449) 24 mmol/L 23-31 AGAP (test code = 0672578543) 8 2-16 BUN (test code = 7687882990) 9 mg/dL 7-23 GLUCOSE (test code = 6846232873) 129 mg/dL 70-110 H CREATININE (test code = 6779808762) 0.68 mg/dL 0.50-1.04 TOTAL BILI (test code = 9237125918) 0.5 mg/dL 0.1-1.1 CALCIUM (test code = 1391574525) 8.9 mg/dL 8.6-10.6 T PROTEIN (test code = 9056629090) 6.3 g/dL 6.3-8.2 ALBUMIN (test code = 7179523864) 3.8 g/dL 3.5-5.0 ALK PHOS (test code = 4162259457) 87 U/L 34-122 ALTv (test code = 1742-6) 24 U/L 5-35 AST(SGOT) (test code = 8407076080) 21 U/L 13-40 eGFR (test code = 9327262602) 91.6 mL/min/1.73m2 LYNDSAY (test code = LYNDSAY) [...] imaging tests). Lab Interpretation (test code = 06065-8) [facility] [id number] 15:10:45* Test Item Value Reference Range Interpretation Comme nts TROPONIN I (test code = 5397121076) 0.015 ng/mL <=0.034 LYNDSAY (test code = [...] of biotin. Lab Interpretation (test code = 65138-6) Normal [facility] CenterN[facility]MINAL WSE-[id number] 15:07:48* Test Item Value Reference Range Interpretation Comme nts NT-proBNP (test code = 8528215820) 1460 pg/mL <=125 H LYNDSAY (test code = LYNDSAY) Biotin has been reported to cause a negative bias, interpret results relative to patient's use of biotin. Lab Interpretation (test code = 11801-8) Abnormal [facility] CenterD-[id number] 14:45:24* Test Item Value Reference Range Interpretation Comments D-DIMER (test code = 5440936720) 0.99 See_Comment H [Automated message] The system [...] a diagnosis. Lab Interpretation (test code = 44742-7) Abnormal [facility] WITH [id number] 14:14:48* Test Item Value Reference Range Interpretation Comme nts WBC (test code = 6690-2) 7.86 See_Comment [Automated [employer]] The system which generated this result transmitted reference range: 4.30 - 11.10 10*3/?L. The reference range was not used to interpret this result as normal/abnormal. RBC (test code = 789-8) 5.13 See_Comment [Automated [employer]] The system which generated this result transmitted [...] g/dL 31.6-35.1 L RDW-SD (test code = 32217-8) 47.8 fL 39.0-49.9 RDW-CV (test code = 788-0) 16.9 % 12.0-15.5 H PLT (test code = 777-3) 507 See_Comment H [Automated messa ge] The system which generated this result transmitted reference range: 166 - 358 10*3/?L. The reference range was not used to interpret this result as normal/abnormal. MPV (test code = 10551-5) 8.2 fL 9.5-12.9 L NRBC/100 WBC (test code = 5946585265) 0.0 See_Comment [Automated me ssage] The system which generated this result transmitted reference range: 0.0 - 10.0 /100 WBCs. The reference range was not used to interpret this result as normal/abnormal. NRBC x10^3 (test code = 1393768616) See_Comment [Automated messa ge] The system which generated this result transmitted reference range: 10*3/?L. The reference range was not used to interpret this result as normal/abnormal. GRAN MAT (NEUT) % (test code = 770-8) 64.5 % IMM GRAN % (test code = 6431728459) 0.30 % LYMPH % (test code = 736-9) 25.6 % MONO % (test code = 5905-5) 7.5 % EOS % (test code = 713-8) 1.0 % BASO % (test code = 706-2) 1.1 % GRAN MAT x10^3(ANC) (test code = 0293069176) 5.07 10*3/uL 1.88-7.09 IMM GRAN x10^3 (test code = 4332762863) 0.00-0.06 LYMPH x10^3 (test code = 731-0) 2.01 10*3/uL 1.32-3.29 MONO x10^3 (test code = 742-7) 0.59 10*3/uL 0.33-0.92 EOS x10^3 (test code = 711-2) 0.08 10*3/uL 0.03-0.39 BASO x10^3 (test code = 704-7) 0.09 10*3/uL 0.01-0.07 H Lab Interpretation (test code = 31969-5) [facility]normal [facility]PR[facility] 13:17:22* Test Item Value Reference Range Interpretation Comme nts RPR SCREEN ([employer]) (test co de = 420) Nonreactive Nonreactive HEMOGLOBIN [id number] 10:39:49* Test Item Value Reference Range Interpretation Comme nts HEMOGLOBIN A1C ELECTROPHORESIS ([employer]) (test code = 3811) 5.8 % See_Comment H [Automated me ssage] The system which generated this result transmitted reference range: <=5.6%. The reference range was not used to interpret this result as normal/abnormal. "The A1c is measured using a [facility]-certified method. HbA1c value equal to or greater than 6.5% as the diagnosis cutoff for diabetes. An HbA1c value of 5.7- 6.4% indicates increased risk for diabetes (prediabetes)."[employer] Instructor ID - ADM VITAMIN [id number] 22:48:27* Test Item Value Reference Range Interpretation Comme nts VITAMIN B12 ([employer]) (test c ode = 774) 227 pg/mL 213-816 [employer] Instructor ID - MARCOTSH/FREE T4 IF [id number] 22:08:28* Test Item Value Reference Range Interpretation Comme nts THYROID STIMULATING HORMONE ([employer]) (test code = 772) 3.309 uIU/mL 0.350-4.940 [employer] Instructor ID - JSHIV-1 ANTIGEN WITH HIV-1/2 [id number] 22:08:28* Test Item Value Reference Range Interpretation Comme nts HIV-1 ANTIGEN WITH HIV 1\\T\\2 ANTIBODY (2) ([employer]) (test code = 2586) Nonreactive Nonreactive [employer] Instructor ID - JSC-REACTIVE [id number] 21:49:44* Test Item Value Reference Range Interpretation Comme nts C-REACTIVE PROTEIN (BEAKER) (test code = 676) 0.35 mg/dL 0.00-0.50 [employer] Instructor ID - JSCOMPREHENSIVE METABOLIC [id number] 21:49:43* Test Item Value Reference Range Interpretation [...] GFR is not applicable for dialysis patients [employer] Instructor ID - JSLIPID [id number] 21:49:43* Test Item Value Reference Range Interpretation [...] Borderline 130-159 High 160-189 Very High >=190 [employer] Instructor ID - JSCBC W/PLT COUNT & AUTO VBRCCPEEBBFW9364-81-57 21:34:03* Test Item Value Reference Range Interpretation [...] Interpretation Comme nts Height (test code = 2248156753) in Weight (test code = 8326486619) lbs Systolic BP (test code = 1061758658) mmHg Diastolic BP (test code = 0803217472) mmHg Heart Rate (test code = 8544220411) bpm BSA (test code = 7033155043) 2.00 m2 Ao root diam (test code = 4475324875) 3.20 cm Aortic root (test code = 5426332181) 3.2 cm Ao root annulus (test code = 9964394714) 3.2 cm LVOT diameter (test code = 2146888560) 1.99 cm LVOT area (test code = 2666592576) 3.10 cm2 LVIDD (test code = 5600534839) 5.10 cm Left Ventricular End Diastolic Volume by Teichholz Method (test code = 1712134) 123.0 mL IVS (test code = 9118781312) 1.34 cm Interventricular Septum Diastolic Thickness by 2D (test code = 1329825) 1.34 cm LVPWD (test code = 6517601714) 1.34 cm PW (test code = 9353980121) 1.34 cm 0.6-1.1 EF(Teich) (test code = 6820902007) 41.80 % LVIDS (test code = 7286229927) 4.00 cm Left Ventricular End Systolic Volume by Teichholz Method (test code = 3292856) 71.5 mL FS (test code = 1539095831) 21 % EF - 2D (test code = 27917195) 41.80 % LA size (test code = 9499228194) 4.6 cm Pulmonic Regurgitant End Max Velocity (test code = 9503888542) 119.4 cm/s LAV(MOD-sp4) (test code = 4818688912) 95.00 mL E wave decelartion time (test code = 3526650084) 0.15 s MV stenosis pressure 1/2 time (test code = 5678490726) 45.6 ms MV Peak A Evette (test code = 3944215285) 123.8 cm/s MV Peak E Evette (test code = 3084340093) 109.7 cm/s E/A ratio (test code = 1556480136) ratio MR max PG (test code = 1359601000) 87.20 mm[Hg] MR max evette (test code = 1976151388) 466.90 cm/s Mr max evette (test code = 2666945229) 466.9 m/s MV Prop V (test code = 2112961013) 51.00 cm/s MV E/e' septal (test code = 7818909734) 8.1 cm/s Tapse (test code = 2668935910) 2.21 cm LVOT stroke volume (test code = 9997175884) 49.80 cm3 LVOT peak evette (test code = 5616143905) 89.1 cm/s LVOT mn grad (test code = 6073980078) mmHg AV LVOT peak gradient (test code = 5259823927) mmHg LVOT peak VTI (test code = 0858504475) 16.0 cm LV V1 mean (test code = 2242233420) 64.30 cm/s Aortic valve mean velocity (test code = 4371744961) 133.8 cm/s Ao peak evette (test code = 4763614729) 175.3 cm/s Ao VTI (test code = 5763720795) 32.2 cm AV area by cont VTI (test code = 4032814891) 1.6 cm2 AV area peak evette (test code = 6983507184) 1.6 cm2 Ao max PG (test code = 6223169177) 12.30 mm[Hg] AV peak gradient (test code = 2118010151) mmHg AV valve area (test code = 9576081339) 1.55 cm2 AV mean gradient (test code = 2280802577) mmHg AV regurgitation pressure 1/2 time (test code = 3534545507) 358.5 ms AI dec slope (test code = 1231955799) 364.20 cm/s2 AI max evette (test code = 6390979380) 445.80 cm/s AI max PG (test code = 3773931865) 79.50 mm[Hg] Radiology Study observation (narrative) (test code = 35753-4) LYNDSAY (test code = LYNDSAY) ?Left?Ventricle: Left [...] mL of Lumason ultrasound enhancing agent used. [facility]2022-[facility]-01 10:43:32* Test Item Value Reference Range Interpretation Comme [facility] POCT GLU (test code = 6455406554) 148 mg/dL 70-110 H Lab Interpretation (test cod e = 87952-5) Abnormal [facility] CenterACTIVATED PARTIAL THRMPLAS [id number] 18:39:45* Test Item Value Reference Range Interpretation Comme [facility] APTT Patient (test code = 3173-2) See_Comment [Automated message] The system which generated this result transmitted reference range: 23 - 38 Seconds. The reference range was not used to interpret this result as normal/abnormal. LYNDSAY (test code = LYNDSAY) The [facility] patient population mean normal value for aPTT is 30 seconds. Lab Interpretation (test code = 94535-7) Normal [facility] CenterPROTHROMBIN TIME / [id number] 18:37:42* Test Item Value Reference Range Interpretation Comme [facility] PROTIME PATIENT (test code = 5964-2) See_Comment [Automated [employer]] The system which generated this result transmitted reference range: 12.0 - 14.7 Seconds. The reference range was not used to interpret this result as normal/abnormal. INR (test code = 6301-6) Normal INR <1.1; Warfarin Therapeutic range 2.0 to 3.0 or 2.5 to 3.5, depending upon the indications. Lab Interpretation (test code = 05166-5) Normal [facility] CenterTR[facility]IN [id number] 18:32:01* Test Item Value Reference Range Interpretation Comments TROPONIN I (test code = 2828476213) 0.019 ng/mL See_Comment [Automated message] The system [...] of biotin. Lab Interpretation (test code = 70056-5) Normal [facility] CenterN-TERMINAL HLD-[id number] 18:29:01* Test Item Value Reference Range Interpretation Comme nts NT-proBNP (test code = 8193574243) 2770 pg/mL See_Comment H [Automated message] The system which generated this result transmitted reference range: <=125. The reference range was not used to interpret this result as normal/abnormal. LYNDSAY (test code = LYNDSAY) Biotin has been reported to cause a negative bias, interpret results relative to patient's use of biotin. Lab Interpretation (test code = 15183-6) Abnormal [facility] CenterCOMP. METABOLIC PANEL (01777)2022-07-31 18:21:42* Test Item Value Reference Range Interpretation Comme nts NA (test code = 7668064198) 136 mmol/L 135-145 K (test code = 2435331350) 4.6 mmol/L 3.5-5.0 CL (test code = 2696260630) 104 mmol/L 98-108 CO2 TOTAL (test code = 3282189084) 26 mmol/L 23-31 AGAP (test code = 6014039989) 2-16 BUN (test code = 1861174377) 9 mg/dL 7-23 GLUCOSE (test code = 6825739823) 97 mg/dL 70-110 CREATININE (test code = 9419115838) 0.64 mg/dL 0.50-1.04 TOTAL BILI (test code = 6677418300) 0.5 mg/dL 0.1-1.1 CALCIUM (test code = 3725061762) 8.2 mg/dL 8.6-10.6 L T PROTEIN (test code = 1029143581) 6.5 g/dL 6.3-8.2 ALBUMIN (test code = 3735716025) 3.9 g/dL 3.5-5.0 ALK PHOS (test code = 8664714377) 93 U/L 34-122 ALTv (test code = 1742-6) 18 U/L 5-35 AST(SGOT) (test code = 9637964773) 19 U/L 13-40 eGFR (test code = 4373473409) mL/min/1.73m2 LYNDSAY (test code = LYNDSAY) Association [...] imaging tests). Lab Interpretation (test code = 44928-7) Abnormal [facility] CenterLIPASE2023-01-12 18:21:01* Test Item Value Reference Range Interpretation Comme nts LIPASE (test code = 3234983482) 54 U/L 0-220 Lab Interpretation (test cod e = 14203-2) Normal [facility] CenterCB WITH [id number] 18:07:00* Test Item Value Reference Range Interpretation [...] g/dL 31.6-35.1 L RDW-SD (test code = 39590-8) 53.1 fL 39.0-49.9 H RDW-CV (test code = 788-0) 17.0 % 12.0-15.5 H PLT (test code = 777-3) See_Comment H [Automated messa ge] The system which generated this result transmitted reference range: 166 - 358 10*3/?L. The reference range was not used to interpret this result as normal/abnormal. MPV (test code = 10910-8) 8.2 fL 9.5-12.9 L NRBC/100 WBC (test code = 6852823236) See_Comment [Automated [employer] ssage] The system which generated this result transmitted reference range: 0.0 - 10.0 /100 WBCs. The reference range was not used to interpret this result as normal/abnormal. NRBC x10^3 (test code = 7989545990) See_Comment [Automated messa ge] The system which generated this result transmitted reference range: 10*3/?L. The reference range was not used to interpret this result as normal/abnormal. GRAN MAT (NEUT) % (test code = 770-8) 64.0 % IMM GRAN % (test code = 0156963929) 0.40 % LYMPH % (test code = 736-9) 27.3 % MONO % (test code = 5905-5) 6.5 % EOS % (test code = 713-8) 1.1 % BASO % (test code = 706-2) 0.7 % GRAN MAT x10^3(ANC) (test code = 1764020491) 5.46 10*3/uL 1.88-7.09 IMM GRAN x10^3 (test code = 3607024986) 0.03 10*3/uL 0.00-0.06 LYMPH x10^3 (test code = 731-0) 2.32 10*3/uL 1.32-3.29 MONO x10^3 (test code = 742-7) 0.55 10*3/uL 0.33-0.92 EOS x10^3 (test code = 711-2) 0.09 10*3/uL 0.03-0.39 BASO x10^3 (test code = 704-7) 0.06 10*3/uL 0.01-0.07 Lab Interpretation (test code = 27077-4) Abnormal [facility] METABOLIC PANEL (NA, K, CL, CO2, GLUCOSE, BUN, CREATININE, CA)2022-05-08 06:37:01* Test Item Value Reference Range Interpretation Comme nts NA (test code = 6179324793) 137 mmol/L 135-145 K (test code = 7370501642) 3.8 mmol/L 3.5-5 CL (test code = 0219431688) 103 mmol/L 98-108 CO2 TOTAL (test code = 5866027421) 24 mmol/L 23-31 AGAP (test code = 3392490035) 2-16 BUN (test code = 5530069234) 13 mg/dL 7-23 GLUCOSE (test code = 7742882632) 90 mg/dL 70-110 CREATININE (test code = 2924823768) 0.69 mg/dL 0.5-1.04 CALCIUM (test code = 3760451361) 8.5 mg/dL 8.6-10.6 L eGFR (test code = 1595649119) mL/min/1.73m2 LYNDSAY (test code = LYNDSAY) Association [...] imaging tests). Lab Interpretation (test code = 03195-1) Abnormal [facility] CenterMAGNESIUM2022-10-20 06:37:01* Test Item Value Reference Range Interpretation Comme nts MAGNESIUM (test code = 2140943589) 2.1 mg/dL 1.7-2.4 Lab Interpretation (test cod e = 72353-9) Normal [facility] CenterPHOSPHORUS2022-10-20 06:37:01* Test Item Value Reference Range Interpretation Comme nts PHOSPHORUS (test code = 0896338140) 4.7 mg/dL 2.5-5 Lab Interpretation (test cod e = 66819-5) Normal [facility] CenterCB WITH [id number] 06:11:54* Test Item Value Reference Range Interpretation [...] 32.4 g/dL 31.6-35.1 RDW-SD (test code = 61621-7) 51.0 fL 39-49.9 H RDW-CV (test code = 788-0) 16.5 % 12-15.5 H PLT (test code = 777-3) See_Comment H [Automated messa ge] The system which generated this result transmitted reference range: 166 - 358 10*3/?L. The reference range was not used to interpret this result as normal/abnormal. MPV (test code = 68433-8) 8.3 fL 9.5-12.9 L NRBC/100 WBC (test code = 9397832110) See_Comment [Automated [employer] ssage] The system which generated this result transmitted reference range: 0.0 - 10.0 /100 WBCs. The reference range was not used to interpret this result as normal/abnormal. NRBC x10^3 (test code = 0180127513) See_Comment [Automated messa ge] The system which generated this result transmitted reference range: 10*3/?L. The reference range was not used to interpret this result as normal/abnormal. GRAN MAT (NEUT) % (test code = 770-8) 64.5 % IMM GRAN % (test code = 7903055453) 0.50 % LYMPH % (test code = 736-9) 27.1 % MONO % (test code = 5905-5) 6.6 % EOS % (test code = 713-8) 0.6 % BASO % (test code = 706-2) 0.7 % GRAN MAT x10^3(ANC) (test code = 6434983989) 5.28 10*3/uL 1.88-7.09 IMM GRAN x10^3 (test code = 4899984288) 0.04 10*3/uL 0-0.06 LYMPH x10^3 (test code = 731-0) 2.22 10*3/uL 1.32-3.29 MONO x10^3 (test code = 742-7) 0.54 10*3/uL 0.33-0.92 EOS x10^3 (test code = 711-2) 0.05 10*3/uL 0.03-0.39 BASO x10^3 (test code = 704-7) 0.06 10*3/uL 0.01-0.07 Lab Interpretation (test code = 63057-6) [facility]-07 01:18:10* Test Item Value Reference Range Interpretation Comme nts POCT GLU (test code = 7040493233) 120 mg/dL 70-110 H Lab Interpretation (test cod e = 99546-0) Abnormal [facility] CenterType and Screen - ONCE [id number] 05:46:35* Test Item Value Reference Range Interpretation Comme nts ABO & RH (test code = 20) O POSITIVE Performed at [facility] Laboratory Services - [facility] Blood [place] [id number] Free: [phone] No. [id number] IAT (test code = 1185) Negative Performed at [facility] Laboratory Services - [facility] Blood [place] [id number] Free: [phone] No. [id number] [facility] CenterBASIC METABOLIC PANEL (NA, K, CL, CO2, GLUCOSE, BUN, CREATININE, CA)2022-05-05 08:22:57* Test Item Value Reference Range Interpretation Comme nts NA (test code = 7593508420) 136 mmol/L 135-145 K (test code = 8395602006) 4.9 mmol/L 3.5-5 CL (test code = 3709020428) 108 mmol/L 98-108 CO2 TOTAL (test code = 6725248175) 22 mmol/L 23-31 L AGAP (test code = 2724036599) 2-16 BUN (test code = 7261434367) 12 mg/dL 7-23 GLUCOSE (test code = 7036040285) 155 mg/dL 70-110 H CREATININE (test code = 9331486729) 0.63 mg/dL 0.5-1.04 CALCIUM (test code = 7089372514) 8.4 mg/dL 8.6-10.6 L eGFR (test code = 9043129813) mL/min/1.73m2 LYNDSAY (test code = LYNDSAY) Association [...] imaging tests). Lab Interpretation (test code = 18047-4) Abnormal [facility] CenterPROTHROMBIN TIME / [id number] 08:22:37* Test Item Value Reference Range Interpretation Comme [facility] PROTIME PATIENT (test code = 5964-2) See_Comment [Automated messa ge] The system which generated this result transmitted reference range: 10.1 - 12.6 Seconds. The reference range was not used to interpret this result as normal/abnormal. INR (test code = 6301-6) Normal INR <1.1; Warfarin Therapeutic range 2.0 to 3.0 or 2.5 to 3.5, depending upon the indications. Lab Interpretation (test code = 22926-4) Normal [facility] CenteraPTT2022-10-17 08:22:37* Test Item Value Reference Range Interpretation Comme [facility] APTT Patient (test code = 3173-2) See_Comment [Automated [employer] ge] The system which generated this result transmitted reference range: 26 - 36 Seconds. The reference range was not used to interpret this result as normal/abnormal. Lab Interpretation (test code = 13722-8) Normal [facility] CenterFIBRINOGEN2022-10-17 08:22:37* Test Item Value Reference Range Interpretation Comme [facility] Fibrinogen (test code = 1044005628) 294 mg/dL 167-453 Lab Interpretation (test cod e = 42339-8) Normal [facility] CenterCB WITH [id number] 08:15:01* Test Item Value Reference Range Interpretation Comme [facility] WBC (test code = 6690-2) See_Comment [Automated [employer] ge] The system which generated this result [...] g/dL 31.6-35.1 L RDW-SD (test code = 89095-4) 52.9 fL 39-49.9 H RDW-CV (test code = 788-0) 16.8 % 12-15.5 H PLT (test code = 777-3) See_Comment H [Automated messa ge] The system which generated this result transmitted reference range: 166 - 358 10*3/?L. The reference range was not used to interpret this result as normal/abnormal. MPV (test code = 26858-3) 8.3 fL 9.5-12.9 L NRBC/100 WBC (test code = 6115418136) See_Comment [Automated [employer]age] The system which generated this result transmitted reference range: 0.0 - 10.0 /100 WBCs. The reference range was not used to interpret this result as normal/abnormal. NRBC x10^3 (test code = 4896377380) See_Comment [Automated messa ge] The system which generated this result transmitted reference range: 10*3/?L. The reference range was not used to interpret this result as normal/abnormal. GRAN MAT (NEUT) % (test code = 770-8) 86.4 % IMM GRAN % (test code = 4655048494) 0.40 % LYMPH % (test code = 736-9) 11.7 % MONO % (test code = 5905-5) 1.1 % EOS % (test code = 713-8) 0.0 % BASO % (test code = 706-2) 0.4 % GRAN MAT x10^3(ANC) (test code = 3448338496) 6.36 10*3/uL 1.88-7.09 IMM GRAN x10^3 (test code = 2620648166) 0.03 10*3/uL 0-0.06 LYMPH x10^3 (test code = 731-0) 0.86 10*3/uL 1.32-3.29 L MONO x10^3 (test code = 742-7) 0.08 10*3/uL 0.33-0.92 L EOS x10^3 (test code = 711-2) 0.03-0.39 L BASO x10^3 (test code = 704-7) 0.03 10*3/uL 0.01-0.07 Lab Interpretation (test code = 91385-5) Abnormal [facility] CenterVITAMIN D, [id number] 20:14:03* Test Item Value Reference Range Interpretation Comme nts VIT D 25OH (test code = 03019-3) 22 ng/mL 25-80 L LYNDSAY (test code = LYNDSAY) Deficiency: <20 ng/mLInsufficiency: 20-24 ng/mLOptimal: 25-80 ng/mL Lab Interpretation (test code = 63573-2) Abnormal [facility] CenterBASI METABOLIC PANEL (NA, K, CL, CO2, GLUCOSE, BUN, CREATININE, CA)2022-04-15 11:27:57* Test Item Value Reference Range Interpretation Comme nts NA (test code = 6311072076) 138 mmol/L 135-145 K (test code = 6468651511) 3.9 mmol/L 3.5-5 CL (test code = 7753365160) 106 mmol/L 98-108 CO2 TOTAL (test code = 8439526052) 23 mmol/L 23-31 AGAP (test code = 4408733088) 2-16 BUN (test code = 6567916398) 10 mg/dL 7-23 GLUCOSE (test code = 4326094431) 91 mg/dL 70-110 CREATININE (test code = 1147033143) 0.65 mg/dL 0.5-1.04 CALCIUM (test code = 1061691422) 8.1 mg/dL 8.6-10.6 L eGFR (test code = 9127176965) mL/min/1.73m2 LYNDSAY (test code = LYNDSAY) Association [...] imaging tests). Lab Interpretation (test code = 46227-8) Abnormal [facility] CenterSTROKE Protocol - Transthoracic echo (TTE) 2022-04-14 22:07:33* Test Item Value Reference Range Interpretation Comme nts Height (test code = 4725684352) in Weight (test code = 3193965168) lbs Systolic BP (test code = 0052897822) mmHg Diastolic BP (test code = 5104230731) mmHg Heart Rate (test code = 5744689799) bpm BSA (test code = 8387134388) 1.94 m2 TASV (test code = 6412779183) 15.5 cm/s LVIDD (test code = 7274345681) 6.00 cm Left Ventricular End Diastolic Volume by Teichholz Method (test code = 0015189) 183.0 mL IVS (test code = 8957292043) 1.09 cm Interventricular Septum Diastolic Thickness by 2D (test code = 1089953) 1.09 cm LVPWD (test code = 8273207801) 0.94 cm PW (test code = 5352735164) 0.94 cm 0.6-1.1 EF(Teich) (test code = 3532890347) 40.30 % LVIDS (test code = 2633652039) 4.80 cm Left Ventricular End Systolic Volume by Teichholz Method (test code = 5059146) 109.2 mL FS (test code = 4071418100) 20 % EF - 2D (test code = 59233821) 40.30 % LVOT diameter (test code = 2823469282) 2.05 cm LVOT area (test code = 5075914321) 3.30 cm2 Ao root diam (test code = 0717031855) 3.10 cm Aortic root (test code = 1218031994) 3.1 cm Ao root annulus (test code = 8429534688) 3.1 cm LA size (test code = 0732511877) 4.2 cm LAV(MOD-sp4) (test code = 5496593899) 64.90 mL MV Peak A Evette (test code = 6136893253) 115.7 cm/s E wave decelartion time (test code = 8186841966) 0.15 s MV Peak E Evette (test code = 7277589606) 106.2 cm/s E/A ratio (test code = 4451061383) ratio LVOT stroke volume (test code = 5243829469) 48.30 cm3 LVOT peak evette (test code = 2656796673) 78.4 cm/s LVOT mn grad (test code = 6772720960) mmHg AV LVOT peak gradient (test code = 0747678615) mmHg LVOT peak VTI (test code = 2163775475) 14.7 cm LV V1 mean (test code = 0219163629) 51.40 cm/s Ao peak evette (test code = 1693030573) 154.7 cm/s AV area peak evette (test code = 6832971063) 1.7 cm2 Ao max PG (test code = 6225539948) 9.60 mm[Hg] AV peak gradient (test code = 8022987715) mmHg AV regurgitation pressure 1/2 time (test code = 5727399878) 257.3 ms AI dec slope (test code = 6535572244) 498.10 cm/s2 AI max evette (test code = 1487716611) 437.60 cm/s AI max PG (test code = 0361648528) 77.80 mm[Hg] Tapse (test code = 2545434875) 2.19 cm LA Volume Index (BP) (test code = 8070841962) 32.0 mL/m2 LA volume (BP) (test code = 0413963125) 62.1 mL LAV(MOD-sp2) (test code = 6022856547) 52.70 mL A4C EF (test code = 5422277625) 44.80 % EF(sp4-el) (test code = 9393327128) 45.20 % SV(MOD-sp4) (test code = 9979398523) 71.20 mL SV(sp4-el) (test code = 6497053139) 73.90 mL LV Diastolic Volume (BP) (test code = 4149829127) 146.3 mL A2C EF (test code = 8982813423) 52.00 % EF(MOD-bp) (test code = 7336295488) 46.70 % EF(sp2-el) (test code = 5152519192) 52.40 % LV Systolic Volume (BP) (test code = 9880708715) 77.9 mL SV(MOD-bp) (test code = 0985538490) 68.40 mL SV(MOD-sp2) (test code = 6134478368) 69.20 mL EF (test code = 3496191478) Left Ventricular Stroke Volume by 2-D Biplane-MOD (test code = 4713778) 68.4 mL Radiology Study observation (narrative) (test code = 70655-1) LYNDSAY (test code = LYNDSAY) ?Left?Ventricle: Left [...] agent used and saline contrast was performed. [facility] CenterKEPPRA (LEVETIRACETAM)2022-04-14 16:48:36* Test Item Value Reference Range Interpretation Comme nts KEPPRA (test code = 9385581486) 12-46 L LYNDSAY (test code = LYNDSAY) Therapeutic range: 12-46 ?g/mL ? ?Toxic: Not well established.Test developed and characteristics determined by [facility] Laboratory Services. Lab Interpretation (test code = 36537-0) Abnormal [facility] Metabolic Panel (Na, K, Cl, CO2, Glucose, BUN, Creatinine, Ca)2022-04-14 10:50:11* Test Item Value Reference Range Interpretation Comme [facility] NA (test code = 8585858685) 136 mmol/L 135-145 K (test code = 1384828994) 3.8 mmol/L 3.5-5 CL (test code = 4857387452) 105 mmol/L 98-108 CO2 TOTAL (test code = 4386964321) 25 mmol/L 23-31 AGAP (test code = 9539263724) 2-16 BUN (test code = 5318811918) 9 mg/dL 7-23 GLUCOSE (test code = 8682873183) 101 mg/dL 70-110 CREATININE (test code = 0166800063) 0.66 mg/dL 0.5-1.04 CALCIUM (test code = 3666673005) 8.1 mg/dL 8.6-10.6 L eGFR (test code = 4294928707) mL/min/1.73m2 LYNDSAY (test code = LYNDSAY) Association [...] imaging tests). Lab Interpretation (test code = 00878-7) Abnormal [facility] CenterMagensium, [id number] 10:50:11* Test Item Value Reference Range Interpretation Comme nts MAGNESIUM (test code = 4174728087) 1.9 mg/dL 1.7-2.4 Lab Interpretation (test cod e = 93791-2) Normal [facility] CenterThyroid Stimulating Cndrqnm3952-24-29 22:21:44 * Test Item Value Reference Range Interpretation Comme nts TSH (test code = 9275393165) See_Comment Biotin has been reported to cause a negative bias, interpret results relative to patient's use of biotin. [Automated message] The system which generated this result transmitted reference range: 0.45 - 4.70 mIU/L. The reference range was not used to interpret this result as normal/abnormal. Lab Interpretation (test code = 35643-8) Normal [facility] CenterGLYCOSYLATED HEMOGLOBIN (A1C)2022-04-13 21:53:43* Test Item Value Reference Range Interpretation Comme nts HGB A1C (test code = 4548-4) 5.8 % 4-5.7 H LYNDSAY (test code = LYNDSAY) Reference RangesNormal: <5.7%Prediabetes: 5.7 - 6.4%Diabetes: > 6.5% Lab Interpretation (test code = 17977-0) Abnormal [facility] CenterFASTING LIPID PANEL (42144)(TOTAL CHOLESTEROL, TRIGLYCERIDES, HDL)2022-04-13 21:34:53* Test Item Value Reference Range Interpretation Comme nts CHOL (test code = 2675886898) 201 mg/dL 120-200 H HDL (test code = 4568485006) 56 mg/dL See_Comment [Automated [employer]] The system which generated this result transmitted reference range: >=50. The reference range was not used to interpret this result as normal/abnormal. HDLC RATIO (test code = 5733137376) See_Comment [Automated [employer]] The system which generated this result transmitted reference range: <=4.5. The reference range was not used to interpret this result as normal/abnormal. TRIG (test code = 5093667950) 355 mg/dL 30-170 H LDL CHOL (test code = 22659-5) 74 mg/dL See_Comment [Automated [employer]] The system which generated this result transmitted reference range: <=160. The reference range was not used to interpret this result as normal/abnormal. VLDL (test code = 2525743985) 71 mg/dL 5-60 H Lab Interpretation (test code = 73732-5) Abnormal [facility] CenterTroponin I - Code Nfavol3721-77-07 18:46:27* Test Item Value Reference Range Interpretation Comments TROPONIN I (test code = 5621377080) 0.013 ng/mL See_Comment [Automated message] The system [...] of biotin. Lab Interpretation (test code = 14832-1) Normal [facility] Metabolic Panel (NA, K, CL, CO2, Glucose, BUN, Creatinine, CA) - Code Lrruhh8154-14-47 18:35:07* Test Item Value Reference Range Interpretation Comme nts NA (test code = 9919040075) 136 mmol/L 135-145 K (test code = 5502540425) 4.3 mmol/L 3.5-5 CL (test code = 6455511945) 105 mmol/L 98-108 CO2 TOTAL (test code = 7459984093) 27 mmol/L 23-31 AGAP (test code = 0997062320) 2-16 BUN (test code = 5775279063) 8 mg/dL 7-23 GLUCOSE (test code = 5485117799) 130 mg/dL 70-110 H CREATININE (test code = 4800676690) 0.75 mg/dL 0.5-1.04 CALCIUM (test code = 5078177314) 8.5 mg/dL 8.6-10.6 L eGFR (test code = 8629671803) mL/min/1.73m2 LYNDSAY (test code = LYNDSAY) Association [...] imaging tests). Lab Interpretation (test code = 05955-3) Abnormal [facility] CenteraPTT - Code Gxqget9488-73-72 18:32:46* Test Item Value Reference Range Interpretation Comme [facility] APTT Patient (test code = 3173-2) See_Comment [Automated message] The system which generated this result transmitted reference range: 23 - 38 Seconds. The reference range was not used to interpret this result as normal/abnormal. LYNDSAY (test code = LYNDSAY) The [facility] patient population mean normal value for aPTT is 30 seconds. Lab Interpretation (test code = 28299-7) Normal [facility] CenterProthrombin Time / INR - Code Wshvkf5717-45-58 18:30:45* Test Item Value Reference Range Interpretation Comme [facility] PROTIME PATIENT (test code = 5964-2) See_Comment [Automated messa ge] The system which generated this result transmitted reference range: 12.0 - 14.7 Seconds. The reference range was not used to interpret this result as normal/abnormal. INR (test code = 6301-6) Normal INR <1.1; Warfarin Therapeutic range 2.0 to 3.0 or 2.5 to 3.5, depending upon the indications. Lab Interpretation (test code = 91268-4) Normal [facility] CenterCBC without Diff - Code Kjihlu9957-14-67 18:23:07* Test Item Value Reference Range Interpretation Comme [facility] WBC (test code = 6690-2) See_Comment [...] result as normal/abnormal. MPV (test code = 86312-7) 8.1 fL 9.5-12.9 L RDW-CV (test code = 788-0) 16.1 % 12-15.5 H RDW-SD (test code = 61014-3) 49.2 fL 39-49.9 NRBC x10^3 (test code = 5080250094) See_Comment [Automated [employer]] The system which generated this result transmitted reference range: 10*3/?L. The reference range was not used to interpret this result as normal/abnormal. NRBC/100 WBC (test code = 4247405357) See_Comment [Automated messa ge] The system which generated this result transmitted reference range: 0.0 - 10.0 /100 WBCs. The reference range was not used to interpret this result as normal/abnormal. IPF % (test code = 0091806963) Lab Interpretation (test code = 79563-4) Abnormal [facility] [id number] 21:06:40* Test Item Value Reference Range Interpretation Comments TROPONIN I (test code = 0519824357) 0.005 ng/mL See_Comment [Automated message] The system [...] of biotin. Lab Interpretation (test code = 14541-0) Normal [facility]. METABOLIC PANEL (57484)2021-11-23 20:55:42* Test Item Value Reference Range Interpretation Comme nts NA (test code = 2086982696) 137 mmol/L 135-145 K (test code = 4425713118) 4.3 mmol/L 3.5-5.0 CL (test code = 6186350906) 104 mmol/L 98-108 CO2 TOTAL (test code = 3534534676) 22 mmol/L 23-31 L AGAP (test code = 8972689896) 2-16 BUN (test code = 3477219584) 15 mg/dL 7-23 GLUCOSE (test code = 3467386173) 114 mg/dL 70-110 H CREATININE (test code = 0518541944) 0.68 mg/dL 0.50-1.04 TOTAL BILI (test code = 7524007633) 0.5 mg/dL 0.1-1.1 CALCIUM (test code = 8823760208) 9.1 mg/dL 8.6-10.6 T PROTEIN (test code = 1617941583) 7.3 g/dL 6.3-8.2 ALBUMIN (test code = 6282367885) 4.4 g/dL 3.5-5.0 ALK PHOS (test code = 6581391457) 243 U/L 34-122 H ALTv (test code = 1742-6) 24 U/L 5-35 AST(SGOT) (test code = 8091254838) 30 U/L 13-40 eGFR (test code = 9946576430) mL/min/1.73m2 LYNDSAY (test code = LYNDSAY) Association [...] imaging tests). Lab Interpretation (test code = 24145-5) Abnormal [facility] CenterLIPASE2022-05-07 20:55:22* Test Item Value Reference Range Interpretation Comme [facility] LIPASE (test code = 8083591141) 96 U/L 0-220 Lab Interpretation (test cod e = 72708-9) Normal [facility] CenterPOCT [id number] 20:46:00* Test Item Value Reference Range Interpretation Comme nts POCT PREG (test code = 1605) negative On board controls acceptable with C Line (test code = 3574) present POCT PREG LOT # (test code = 3575) [id number] POCT PREG TEST DATE ( test code = 3576) 04/18/2023 Lab Interpretation (test cod e = 91871-1) Normal [facility] WITH [id number] 20:40:38* Test Item Value Reference Range Interpretation [...] 31.8 g/dL 31.6-35.1 RDW-SD (test code = 42283-0) 53.7 fL 39.0-49.9 H RDW-CV (test code = 788-0) 17.2 % 12.0-15.5 H PLT (test code = 777-3) See_Comment H [Automated messa ge] The system which generated this result transmitted reference range: 166 - 358 10*3/?L. The reference range was not used to interpret this result as normal/abnormal. MPV (test code = 25736-2) 8.5 fL 9.5-12.9 L NRBC/100 WBC (test code = 8444954400) See_Comment [Automated [employer]] The system which generated this result transmitted reference range: 0.0 - 10.0 /100 WBCs. The reference range was not used to interpret this result as normal/abnormal. NRBC x10^3 (test code = 6681974325) <0.01 See_Comment [Automated messa ge] The system which generated this result transmitted reference range: 10*3/?L. The reference range was not used to interpret this result as normal/abnormal. GRAN MAT (NEUT) % (test code = 770-8) 53.7 % IMM GRAN % (test code = 9023809529) 0.90 % LYMPH % (test code = 736-9) 32.6 % MONO % (test code = 5905-5) 10.1 % EOS % (test code = 713-8) 1.5 % BASO % (test code = 706-2) 1.2 % GRAN MAT x10^3(ANC) (test code = 8141071388) 4.98 10*3/uL 1.88-7.09 IMM GRAN x10^3 (test code = 7262691432) 0.08 10*3/uL 0.00-0.06 H LYMPH x10^3 (test code = 731-0) 3.02 10*3/uL 1.32-3.29 MONO x10^3 (test code = 742-7) 0.94 10*3/uL 0.33-0.92 H EOS x10^3 (test code = 711-2) 0.14 10*3/uL 0.03-0.39 BASO x10^3 (test code = 704-7) 0.11 10*3/uL 0.01-0.07 H Lab Interpretation (test code = 22828-6) Abnormal [facility] CenterPOCT GLUCOSE (AUTOMATED)2021-11-23 20:17:33* Test Item Value Reference Range Interpretation Comme nts POCT GLU (test code = 5365436991) 111 mg/dL 70-110 H Notified Provide r Lab Interpretation (test code = 81907-5) Abnormal [facility] CenterPAP TEST, THINPREP, [id number] 00:00:00 * Test Item Value Reference Range Interpretation Comme nts SOURCE: (test code = 8001) Endocervical SLIDES: (test code = 8011) 1 LMP: (test code = 8021) 06/03/2021 SPECIMEN ADEQUACY: (test code = 12345) (NOTE) INTERPRETATION: (test code = 51435) ASCUS/EPITH. ABNORMALITY; SEE BELOW CABLE PLACER: (test code = 8101) CHANA Thacker(ASCP)[facility] PATHOLOGIST INTERPRETATION BY: (test code = 8122) Nahid Russell M.D. LOCATION: (test code = 89796) (NOTE) CPT: (test code = 8140) (NOTE) PAP TEST, THINPREP, [id number] 00:00:00* Test Item Value Reference Range Interpretation Comme nts SOURCE: (test code = 8001) Endocervical SLIDES: (test code = 8011) 1 LMP: (test code = 8021) 06/03/2021 SPECIMEN ADEQUACY: (test code = 57386) (NOTE) INTERPRETATION: (test code = 51848) ASCUS/EPITH. ABNORMALITY; SEE BELOW CABLE PLACER: (test code = 8101) CHANA Thacker(ASCP)[facility] INTERPRETATION BY: (test code = 8122) Nahid Russell M.D. LOCATION: (test code = 56333) (NOTE) CPT: (test code = 8140) (NOTE) PAP TEST, THINPREP, [id number] 00:00:00* Test Item Value Reference Range Interpretation Comme nts SOURCE: (test code = 8001) Endocervical SLIDES: (test code = 8011) 1 LMP: (test code = 8021) 06/03/2021 SPECIMEN ADEQUACY: (test code = 03272) (NOTE) INTERPRETATION: (test code = 91778) ASCUS/EPITH. ABNORMALITY; SEE BELOW CABLE PLACER: (test code = 8101) CHANA Thacker(ASCP)[facility] INTERPRETATION BY: (test code = 8122) Nahid Russell M.D. LOCATION: (test code = 02319) (NOTE) CPT: (test code = 8140) (NOTE) PAP TEST, THINPREP, [id number] 00:00:00* Test Item Value Reference Range Interpretation Comme nts SOURCE: (test code = 8001) Endocervical SLIDES: (test code = 8011) 1 LMP: (test code = 8021) 06/03/2021 SPECIMEN ADEQUACY: (test code = 18543) (NOTE) INTERPRETATION: (test code = 45430) ASCUS/EPITH. ABNORMALITY; SEE BELOW CABLE PLACER: (test code = 8101) CHANA Thacker(ASCP)[facility] PATHOLOGIST INTERPRETATION BY: (test code = 8122) Nahid Russell M.D. LOCATION: (test code = 89468) (NOTE) CPT: (test code = 8140) (NOTE) HPV HIGH RISK WITH GENOTYPE, [id number] 00:00:00* Test Item Value Reference Range Interpretation Comme nts HPV HIGH RISK INTERP (test c ode = 11027) POSITIVE HPV 16 (test code = 85512) POSITIVE HPV 18 (test code = 69818) NEGATIVE HPV, HR, OTHER GENOTYPES (te st code = 16210) POSITIVE HPV HIGH RISK WITH GENOTYPE, [id number] 00:00:00* Test Item Value Reference Range Interpretation Comme nts HPV HIGH RISK INTERP (test c ode = 87765) POSITIVE HPV 16 (test code = 35429) POSITIVE HPV 18 (test code = 78316) NEGATIVE HPV, HR, OTHER GENOTYPES (te st code = 52377) POSITIVE HPV HIGH RISK WITH GENOTYPE, [id number] 00:00:00* Test Item Value Reference Range Interpretation Comme nts HPV HIGH RISK INTERP (test c ode = 41836) POSITIVE HPV 16 (test code = 73758) POSITIVE HPV 18 (test code = 12689) NEGATIVE HPV, HR, OTHER GENOTYPES (te st code = 99389) POSITIVE HPV HIGH RISK WITH GENOTYPE, [id number] 00:00:00* Test Item Value Reference Range Interpretation Comme nts HPV HIGH RISK INTERP (test c ode = 77315) POSITIVE HPV 16 (test code = 75850) POSITIVE HPV 18 (test code = 23758) NEGATIVE HPV, HR, OTHER GENOTYPES (te st code = 73516) POSITIVE [id number] 03:22:48* Test Item Value Reference Range Interpretation Comme nts APPEARANCE (test code = 7724987462) Hazy Clear A COLOR (test code = 2119951345) Yellow Yellow PH (test code = 4845178879) 4.8-8.0 SP GRAVITY (test code = 8492088458) 1.003-1.030 GLU U QUAL (test code = 6250629593) Normal Normal BLOOD (test code = 8065944440) Negative Negative Interference fro m ascorbic acid may cause false negative results. KETONES (test code = 3536477700) 5 mg/dL Negative A PROTEIN (test code = 2887-8) Negative Negative UROBILIN (test code = 2334955717) 4.0 mg/dL Normal A BILIRUBIN (test code = 9313895229) Negative Negative NITRITE (test code = 3110818759) Negative Negative LEUK GRUPO (test code = 3434980739) Negative Negative RBC/HPF (test code = 7035187470) See_Comment [Automated messa ge] The system which generated this result transmitted reference range: 0 - 3 HPF. The reference range was not used to interpret this result as normal/abnormal. WBC/HPF (test code = 1773196801) <1 See_Comment [Automated messa ge] The system which generated this result transmitted reference range: 0 - 5 HPF. The reference range was not used to interpret this result as normal/abnormal. BACTERIA (test code = 8609464429) Few Negative A SQ EPITH (test code = 3365582775) HPF Lab Interpretation (test code = 34808-9) [facility]22:48* Test Item Value Reference Range Interpretation Comme nts APPEARANCE (test code = 8665926812) Hazy Clear A COLOR (test code = 8319753269) Yellow Yellow PH (test code = 0562316816) 4.8-8.0 SP GRAVITY (test code = 2266849993) 1.003-1.030 GLU U QUAL (test code = 8184139206) Normal Normal BLOOD (test code = 6994292374) Negative Negative KETONES (test code = 5959930417) 5 mg/dL Negative A PROTEIN (test code = 2887-8) Negative Negative UROBILIN (test code = 3481089169) 4.0 mg/dL Normal A BILIRUBIN (test code = 2369170460) Negative Negative NITRITE (test code = 5448979422) Negative Negative LEUK GRUPO (test code = 3683304583) Negative Negative RBC/HPF (test code = 0066269924) See_Comment [Automated [employer]] The system which generated this result transmitted reference range: 0 - 3 HPF. The reference range was not used to interpret this result as normal/abnormal. WBC/HPF (test code = 0142886315) <1 See_Comment [Automated messa ge] The system which generated this result transmitted reference range: 0 - 5 HPF. The reference range was not used to interpret this result as normal/abnormal. BACTERIA (test code = 1122899861) Few Negative A SQ EPITH (test code = 0349270512) HPF Lab Interpretation (test code = 71555-2) Abnormal [facility] G3633-82-54 02:45:00* Test Item Value Reference Range Interpretation Comments TROPONIN I (test code = 8812797086) 0.002 ng/mL See_Comment [Automated message] The system [...] of biotin. Lab Interpretation (test code = 93635-7) Normal [facility] H3954-79-18 02:45:00* Test Item Value Reference Range Interpretation Comme nts TROPONIN I (test code = 2853749151) 0.002 ng/mL See_Comment [Automated [employer]] The system which generated this result transmitted reference range: <=0.034. The reference range was not used to interpret this result as normal/abnormal. LYNDSAY (test code = LYNDSAY) Lab Interpretation (test code = 14907-4) Normal [facility]AL CUQ-GDV6454-46-29 02:41:57* Test Item Value Reference Range Interpretation Comme nts NT-proBNP (test code = 2965970923) 169 pg/mL See_Comment H [Automated message] The system which generated this result transmitted reference range: <=125. The reference range was not used to interpret this result as normal/abnormal. LYNDSAY (test code = LYNDSAY) Biotin has been reported to cause a negative bias, interpret results relative to patient's use of biotin. Lab Interpretation (test code = 62197-4) Abnormal [facility] OWY-WQF7432-32-29 02:41:57* Test Item Value Reference Range Interpretation Comme nts NT-proBNP (test code = 4892647279) 169 pg/mL See_Comment H [Automated [employer]] The system which generated this result transmitted reference range: <=125. The reference range was not used to interpret this result as normal/abnormal. LYNDSAY (test code = LYNDSAY) Lab Interpretation (test code = 31453-6) [facility]normal [facility] MET[facility]OLIC PANEL (62256)2021-03-17 02:09:13* Test Item Value Reference Range Interpretation Comme nts NA (test code = 9493989463) 137 mmol/L 135-145 K (test code = 7005813343) 4.2 mmol/L 3.5-5.0 CL (test code = 6448921963) 102 mmol/L 98-108 CO2 TOTAL (test code = 1479818629) 25 mmol/L 23-31 AGAP (test code = 6600763882) 2-16 BUN (test code = 2219409733) 18 mg/dL 7-23 GLUCOSE (test code = 0581712242) 144 mg/dL 70-110 H CREATININE (test code = 3774250997) 0.77 mg/dL 0.50-1.04 TOTAL BILI (test code = 9369708802) 0.4 mg/dL 0.1-1.1 CALCIUM (test code = 4954784933) 8.9 mg/dL 8.6-10.6 T PROTEIN (test code = 8507657030) 6.8 g/dL 6.3-8.2 ALBUMIN (test code = 3476059581) 3.9 g/dL 3.5-5.0 ALK PHOS (test code = 2039192970) 84 U/L 34-122 ALTv (test code = 1742-6) 13 U/L 5-35 AST(SGOT) (test code = 2100396577) 17 U/L 13-40 eGFR (test code = 8988639929) mL/min/1.73m2 LYNDSAY (test code = LYNDSAY) Association [...] imaging tests). Lab Interpretation (test code = 35520-3) Abnormal [facility]. METABOLIC PANEL (26784)2021-03-17 02:09:13* Test Item Value Reference Range Interpretation Comme nts NA (test code = 8235257849) 137 mmol/L 135-145 K (test code = 1970117182) 4.2 mmol/L 3.5-5.0 CL (test code = 2330863108) 102 mmol/L 98-108 CO2 TOTAL (test code = 8169944439) 25 mmol/L 23-31 AGAP (test code = 2178984971) 2-16 BUN (test code = 9123711438) 18 mg/dL 7-23 GLUCOSE (test code = 5586790497) 144 mg/dL 70-110 H CREATININE (test code = 4411281178) 0.77 mg/dL 0.50-1.04 TOTAL BILI (test code = 6831865564) 0.4 mg/dL 0.1-1.1 CALCIUM (test code = 5944180073) 8.9 mg/dL 8.6-10.6 T PROTEIN (test code = 7037667581) 6.8 g/dL 6.3-8.2 ALBUMIN (test code = 2844581016) 3.9 g/dL 3.5-5.0 ALK PHOS (test code = 2387747145) 84 U/L 34-122 ALTv (test code = 1742-6) 13 U/L 5-35 AST(SGOT) (test code = 0275754369) 17 U/L 13-40 eGFR (test code = 9676907299) mL/min/1.73m2 LYNDSAY (test code = LYNDSAY) Lab Interpretation (test cod e = 29326-6) Abnormal [facility] WITH WNOM6820-54-92 01:56:33* Test Item Value Reference Range Interpretation Comme nts WBC (test code = 6690-2) See_Comment H [Automated [employer]] The system which generated this result transmitted reference range: 4.30 - 11.10 10*3/?L. The reference range was not used to interpret this result as normal/abnormal. RBC (test code = 789-8) See_Comment [Automated [employer]] The system which generated this result transmitted [...] g/dL 31.6-35.1 L RDW-SD (test code = 13240-4) 55.5 fL 39.0-49.9 H RDW-CV (test code = 788-0) 18.9 % 12.0-15.5 H PLT (test code = 777-3) See_Comment H [Automated messa ge] The system which generated this result transmitted reference range: 166 - 358 10*3/?L. The reference range was not used to interpret this result as normal/abnormal. MPV (test code = 46131-9) 8.2 fL 9.5-12.9 L NRBC/100 WBC (test code = 4476932510) See_Comment [Automated me ssage] The system which generated this result transmitted reference range: 0.0 - 10.0 /100 WBCs. The reference range was not used to interpret this result as normal/abnormal. NRBC x10^3 (test code = 4209848303) <0.01 See_Comment [Automated messa ge] The system which generated this result transmitted reference range: 10*3/?L. The reference range was not used to interpret this result as normal/abnormal. GRAN MAT (NEUT) % (test code = 770-8) 61.7 % IMM GRAN % (test code = 3440854128) 0.80 % LYMPH % (test code = 736-9) 28.5 % MONO % (test code = 5905-5) 6.3 % EOS % (test code = 713-8) 1.8 % BASO % (test code = 706-2) 0.9 % GRAN MAT x10^3(ANC) (test code = 7645730234) 7.31 10*3/uL 1.88-7.09 H IMM GRAN x10^3 (test code = 1375637457) 0.09 10*3/uL 0.00-0.06 H LYMPH x10^3 (test code = 731-0) 3.38 10*3/uL 1.32-3.29 H MONO x10^3 (test code = 742-7) 0.75 10*3/uL 0.33-0.92 EOS x10^3 (test code = 711-2) 0.21 10*3/uL 0.03-0.39 BASO x10^3 (test code = 704-7) 0.11 10*3/uL 0.01-0.07 H Lab Interpretation (test code = 80085-5) Abnormal [facility] WITH CFWF5860-62-13 01:56:33* Test Item Value Reference Range Interpretation [...] g/dL 31.6-35.1 L RDW-SD (test code = 07614-9) 55.5 fL 39.0-49.9 H RDW-CV (test code = 788-0) 18.9 % 12.0-15.5 H PLT (test code = 777-3) See_Comment H [Automated messa ge] The system which generated this result transmitted reference range: 166 - 358 10*3/?L. The reference range was not used to interpret this result as normal/abnormal. MPV (test code = 61329-9) 8.2 fL 9.5-12.9 L NRBC/100 WBC (test code = 7627299947) See_Comment [Automated [employer] ssage] The system which generated this result transmitted reference range: 0.0 - 10.0 /100 WBCs. The reference range was not used to interpret this result as normal/abnormal. NRBC x10^3 (test code = 4081851230) <0.01 See_Comment [Automated messa ge] The system which generated this result transmitted reference range: 10*3/?L. The reference range was not used to interpret this result as normal/abnormal. GRAN MAT (NEUT) % (test code = 770-8) 61.7 % IMM GRAN % (test code = 3165804060) 0.80 % LYMPH % (test code = 736-9) 28.5 % MONO % (test code = 5905-5) 6.3 % EOS % (test code = 713-8) 1.8 % BASO % (test code = 706-2) 0.9 % GRAN MAT x10^3(ANC) (test code = 3081912527) 7.31 10*3/uL 1.88-7.09 H IMM GRAN x10^3 (test code = 9695811961) 0.09 10*3/uL 0.00-0.06 H LYMPH x10^3 (test code = 731-0) 3.38 10*3/uL 1.32-3.29 H MONO x10^3 (test code = 742-7) 0.75 10*3/uL 0.33-0.92 EOS x10^3 (test code = 711-2) 0.21 10*3/uL 0.03-0.39 BASO x10^3 (test code = 704-7) 0.11 10*3/uL 0.01-0.07 H Lab Interpretation (test code = 70841-4) [facility]normal [facility] NOW RAPID TESTING)2021-03-17 01:38:12* Test Item Value Reference Range Interpretation Comme nts SARS-CoV-2 Rapid ID NOW (test code = 76760-0) Not Detected Not Detected LYNDSAY (test code = LYNDSAY) ID NOW COVID-19 As say is an isothermal nucleic acid amplification test intended for the qualitative detection of nucleic acid from SARS-CoV-2 viral RNA in nasopharyngeal (SENIOR ENERGY CONSULTANT) specimens. It is used under Emergency [...] clinically indicated. Lab Interpretation (test code = 59360-2) Normal [facility] ([facility] NOW RAPID TESTING)2021-03-17 01:38:12* Test Item Value Reference Range Interpretation Comme nts SARS-CoV-2 Rapid ID NOW (raisa t code = 52490-3) Not Detected Not Detected LYNDSAY (test code = LYNDSAY) Lab Interpretation (test cod e = 84132-5) [facility]2021-[facility]-19 17:42:45* Test Item Value Reference Range Interpretation Comme nts SARS-CoV-2 Rapid ID NOW (test code = 88721-4) Not Detected Not Detected LYNDSAY (test code = LYNDSAY) ID NOW COVID-19 As say is an isothermal nucleic acid amplification test intended for the qualitative detection of nucleic acid from SARS-CoV-2 viral RNA in nasopharyngeal (SENIOR ENERGY CONSULTANT) specimens. It is used under Emergency [...] clinically indicated. Lab Interpretation (test code = 68922-3) Normal [facility] CenterCT [facility]EN PELVIS W QNOIDYKZ4674-79-18 17:24:55Thickening of the gastric antrum and duodenal bulb could be fromunderdistention, the differential would include sequela of peptic ulcerdisease. No findings of ulcer perforation. Otherwise, no acute intra- abdominal or pelvic abnormality. Stable thickening and nodularity of the left adrenal gland. RL: [id number] Patient name: HEATHER MCCABE BROOKS: 1970 51 years EXAMINATION: CT ABDOMEN PELVIS [...] 12:26 PM CDT Patient name: HEATHER MCCABE PROSPERITYDOB: 1970 51 years EXAMINATION: CT ABDOMEN PELVIS [...] Electronicallysigned by James Freeman at 02/19/2021 12:24 PMUnCovenant [facility] CenterUrinalysis2021-08-03 17:03:40* Test Item Value Reference Range Interpretation Comme nts APPEARANCE (test code = 3736595492) Hazy Clear A COLOR (test code = 0484126003) Mabel Yellow A PH (test code = 8922168076) 4.8-8.0 SP GRAVITY (test code = 4183635669) 1.003-1.030 H GLU U QUAL (test code = 7040972091) Normal Normal BLOOD (test code = 0862650204) Negative Negative KETONES (test code = 9093906428) 5 mg/dL Negative A PROTEIN (test code = 2887-8) 30 mg/dL Negative A UROBILIN (test code = 6582482367) 4.0 mg/dL Normal A BILIRUBIN (test code = 7977300818) 4 mg/dL Negative A NITRITE (test code = 1518387918) Negative Negative LEUK GRUPO (test code = 3755579699) Negative Negative RBC/HPF (test code = 3958891652) See_Comment H [Automated [employer]] The system which generated this result transmitted reference range: 0 - 3 HPF. The reference range was not used to interpret this result as normal/abnormal. WBC/HPF (test code = 9826877127) See_Comment H [Automated messa ge] The system which generated this result transmitted reference range: 0 - 5 HPF. The reference range was not used to interpret this result as normal/abnormal. BACTERIA (test code = 0424436497) Few Negative A MUCOUS (test code = 4727577105) Moderate Negative LPF A SQ EPITH (test code = 1917707220) HPF CA OXALATE (test code = 8856112606) See_Comment H [Automated messa ge] The system which generated this result transmitted reference range: <=1 HPF. The reference range was not used to interpret this result as normal/abnormal. Ictotest (test code = 6448386303) Negative Lab Interpretation (test code = 28169-3) Abnormal [facility] CenterComplete Metabolic Abtef6573-70-82 16:34:55* Test Item Value Reference Range Interpretation Comme nts NA (test code = 7210176165) 139 mmol/L 135-145 K (test code = 1065758273) 4.3 mmol/L 3.5-5.0 CL (test code = 3204659495) 105 mmol/L 98-108 CO2 TOTAL (test code = 6049712797) 26 mmol/L 23-31 AGAP (test code = 6262384908) 2-16 BUN (test code = 4129912798) 11 mg/dL 7-23 GLUCOSE (test code = 7851434141) 95 mg/dL 70-110 CREATININE (test code = 1959914407) 0.70 mg/dL 0.50-1.04 TOTAL BILI (test code = 0401891175) 0.6 mg/dL 0.1-1.1 CALCIUM (test code = 4948486804) 8.9 mg/dL 8.6-10.6 T PROTEIN (test code = 2470832574) 7.7 g/dL 6.3-8.2 ALBUMIN (test code = 9782325816) 4.1 g/dL 3.5-5.0 ALK PHOS (test code = 3645182531) 79 U/L 34-122 ALTv (test code = 1742-6) 10 U/L 5-35 AST(SGOT) (test code = 2915000649) 22 U/L 13-40 eGFR (test code = 2257721648) mL/min/1.73m2 LYNDSAY (test code = LYNDSAY) Association [...] or urine or abnormalities in imaging tests). [facility] CenterLipase, Qlpsd3733-58-77 16:34:14* Test Item Value Reference Range Interpretation Comme nts LIPASE (test code = 1815036081) 45 U/L 0-220 Lab Interpretation (test cod e = 85261-2) Normal [facility] CenterCB with Pzqhowcdsogx5673-36-03 16:21:12* Test Item Value Reference Range Interpretation Comme nts WBC (test code = 6690-2) See_Comment [Automated [employer]] The system which generated this result transmitted reference range: 4.30 - 11.10 10*3/?L. The reference range was not used to interpret this result as normal/abnormal. RBC (test code = 789-8) See_Comment [Automated [employer]] The system which generated this result transmitted [...] g/dL 31.6-35.1 L RDW-SD (test code = 98231-0) 54.4 fL 39.0-49.9 H RDW-CV (test code = 788-0) 18.3 % 12.0-15.5 H PLT (test code = 777-3) See_Comment H [Automated messa ge] The system which generated this result transmitted reference range: 166 - 358 10*3/?L. The reference range was not used to interpret this result as normal/abnormal. MPV (test code = 93774-2) 8.5 fL 9.5-12.9 L NRBC/100 WBC (test code = 6502461475) See_Comment [Automated [employer] ssage] The system which generated this result transmitted reference range: 0.0 - 10.0 /100 WBCs. The reference range was not used to interpret this result as normal/abnormal. NRBC x10^3 (test code = 1254293977) <0.01 See_Comment [Automated messa ge] The system which generated this result transmitted reference range: 10*3/?L. The reference range was not used to interpret this result as normal/abnormal. GRAN MAT (NEUT) % (test code = 770-8) 78.3 % IMM GRAN % (test code = 2083422416) 0.40 % LYMPH % (test code = 736-9) 15.4 % MONO % (test code = 5905-5) 4.8 % EOS % (test code = 713-8) 0.1 % BASO % (test code = 706-2) 1.0 % GRAN MAT x10^3(ANC) (test code = 7605120992) 7.15 10*3/uL 1.88-7.09 H IMM GRAN x10^3 (test code = 8855762088) 0.04 10*3/uL 0.00-0.06 LYMPH x10^3 (test code = 731-0) 1.41 10*3/uL 1.32-3.29 MONO x10^3 (test code = 742-7) 0.44 10*3/uL 0.33-0.92 EOS x10^3 (test code = 711-2) <0.03 0.03-0.39 L BASO x10^3 (test code = 704-7) 0.09 10*3/uL 0.01-0.07 H Lab Interpretation (test code = 84707-1) Abnormal [facility] Notes Date/Time Note Provider Source 2023-09-11 11:34:02 LcI0K2eXMkYDAmjwATCJPQOfyOTwppW/d0RsA3 HycnxBGHxvg/YWdPdcivb8WH0e5554-13-63Q8 1:34:02 Chief ComplaintPatient presents withFollow-up HospitalizationPaBETO HarperN 08616-8Hyeur PsnxDD9869-89-39Q43:34:35Nurse NoteTXT1.2.840.270241.1.13.131.2.7.2.7 31784|[id number] for patient nzvi06914-5Ryuof NoteLNNARRATIVEFormatted C-CDA narrative textKELGalion Community Hospital2727 [facility] Hospital at ParkwayTXTX7702577025USUS2 070-68-44I89:34:351.2.840.270051.1.72. 3.15|1.2.840.388113.1.13.131.2.7.2.727 [id number] [facility] 2023-08-12 16:08:34 OlECdfQigdDGm16A0igDyfQh/LclrPf2r+T3SV bGcugwZlNWHzv0vJPfS7WSOuaw4427-70-72Q9 6:08:34 Bryan spoke to patient and patient decided to leave AMA.AMA form signed by patient and attached to paperwork.Patient in stable condition with AMA. IV line removed and patient was assisted onto wheelchair and moved to the [facility].Patient called her prior to leaving room and will be picking up patient. 73253-1Tnigouqhq department LinoSZ8526-00-89N27:09:43[facility] department NoteTXT1.2.840.136388.1.13.104.2.7.2.7 41420|[id number] for patient crjt97249-6ByekGIOTUQPYGKCYkbjlljgg C-CDA narrative [id number] [place] RN[address] OdujZgcytjeegZscdnnlbpYSSI3739038299XH QYJJCICCUVJKWIAZRMKW4383-26-59A98:09:4 31.2.840.482724.1.72.3.15|1.2.840.1143 50.1.13.104.2.7.2.727879_[id number] Steph Dumont RN [facility] 2023-08-12 15:56:21 +/WuArKdAmU477/uxJzgGLqvC7K3nIRSuLeVQl D2FdgnztlXeSiHchwyDkwOKZeQ4474-25-62E0 5:56:21 Patient requesting to talk to provider - provider aware.Patient refused tylenol as she said medication does not improve her condition and she does not want to throw it up.Patient also refusing blood draw at this time. 24913-8Yslccghtv department MzmhKO2859-57-28M21:57:14Emerw[facility] center department NoteTXT1.2.840.616703.1.13.104.2.7.2.7 29983|[id number] for patient mznl19510-5YtqdJNXDPXWVXBVLduuivtqe C-CDA narrative text[address] DjbzZllxkoqjsOjvwjmdkyHVNI6750104557JZ QFXUWWVIFSXCOQLDLIGJ6236-75-40F80:57:1 41.2.840.324465.1.72.3.15|1.2.840.1143 50.1.13.104.2.7.2.727879_[id number] [facility] 2023-08-12 14:50:00 fm4XaUGV8avFcConGoCt8ZDBvOgSTd0b3F/mPV wf3PhbK9SSWi2vS8zC5TW5Qsca9699-69-71P7 4:50:00 Patient's name and verified with patient.No [...] aware of plan of care.Steph Dumont RN [address] RhxjKU3943-67-09M54:29:07Emer[facility] NoteTXT1.2.840.226079.1.13.104.2.7.2.7 32567|[id number] for patient dben77169-5KrmcDAHFLLTRSGVTzknlfuyz C-CDA narrative iPrint[address] Wade StreetTXTX7755577555US YOLRMBRJXOVUDYCEWCES2198-27-81V68:29:0 71.2.840.605575.1.72.3.15|1.2.840.1143 50.1.13.104.2.7.2.727879_[id number] [facility] 2023-08-12 14:17:22 my4FXHc7yD1rI6Og3BZ78OTiRBmn++7web4lj8 kYB4YpwY+qeSHfmfoKpDKuElno6397-85-47D5 4:17:22 Patient had witnessed seizure like activity.DO Flor at bedside.Patient stopped seizure activity and had no postictal phase.Patient coherent, alert and oriented/answering all questions appropriately. [address]-7Luxqljckl[address] OjrgLS7218-31-83O67:18:15[facility] NoteTXT1.2.840.888938.1.13.104.2.7.2.7 70177|[id number] for patient deqm44849-1TegkTCLYAIDTHFNVlpusjujs C-CDA narrative iPrint50 [address] StreetTXTX7755577555US XYWTPZZPPYCHYXQAQFRI4468-69-76E87:18:1 51.2.840.566189.1.72.3.15|1.2.840.1143 50.1.13.104.2.7.2.727879_[id number] [facility] 2023-08-12 13:45:33 MuAXs9Df1hGUImkzYcq0NxR54Wy4xLl/HjgJpP W+B+co3bYJ4f6bTk/IZm8FGIH45357-22-22W0 3:45:33 Patient here for chest pain that started approximately 1 hour ago. Patient had seizure like activity in the vehicle while attempting to get patient out of the car, patient had no post ictal phase. Patient c/o substernal chest pain and jaw pain. 82119-7Olblrcghd department Triage peptQT2209-05-00E83:46:59[facility] department Triage noteTXT1.2.840.147580.1.13.104.2.7.2.7 14575|[id number] for patient dvpp86440-0Sdqnzceqs department NoteLNNARRATIVEFormatted C-CDA narrative [id number] S Cryer RNUT[address] UgooBfpqxvwzsXovnbeahvSRIH4198077381LG WYYJDZYSSTGGTIVENMYY6383-59-80Q59:46:5 91.2.840.573340.1.72.3.15|1.2.840.1143 50.1.13.104.2.7.2.727879_[id number] Jasvir Reaves RN [facility] 2023-08-12 13:42:00 LhLkXcBjAJNB3+avrS/2wocGhsrUaGSU53Wx/c +2Rw+/X8CY56M5v3h6wlasDJbM5975-84-33D6 3:42:00 [facility] Emergency Department NotePatient Name: Heather TurnerDate of : 1970 53 year old femaleTreatment Room: TX3/XQ4Xnvezqh Record Number: [id number] Care Physician: PATIENT DOES NOT HAVE A PCPPatient Escorted by: Family [5]Mode of Arrival: Personal means [1]EMS Treatment Prior to ED Arrival:BATCH FREEZER treatment: NoneTravel and Exposure Screening:SymptomsDoes patient have [...] received in last 5 years: NoChildhood immunizations: Nw-uo-ysheTvjtmxvol:AllergiesAllergen ReactionsGreen Tea Other - See commentsSeizuresDiclofenac HypertensionKeppra [...] Right 08/14/2015Surgeon: Luis Jones Jr., DPM; Location: [facility]LECTOReview of Systems:Review of SystemsPhysical Exam:ED Triage Vitals [...] (*) 0.01 - 0.07 10*3/uLCOMP. METABOLIC PANEL (44127) - AbnormalNA 140 135 - 145 mmol/LK [...] U/LAST(SGOT) 21 13 - 40 U/LeGFR 107.1 mL/min/1.94o4CPJSCA ACID WHOLE BLOOD - NormalLACTIC ACID 1.56 0.50 - 2.20 mmol/LURINALYSISTROPONIN IEKG:If EKG completed, see Procedure Note.Orders and Treatments:Orders Placed This EncounterProceduresCbc with DiffComp. Metabolic Panel (04750)UrinalysisLactic Acid Whole BloodTroponin IOrders Placed This EncounterMedicationslacosamide (VIMPAT) 100 mg in NaCl 0.9% (NS) 50 mL piggybackacetaminophen (TYLENOL) tablet 1,000 mgFirst Provider Eval:ED EventsDate/Time Event User Kgyiscxo60/24/24 1345 Medical Screening Begins BRIAN BRYAN --08/12/23 1345 First Provider Evaluation BRIAN BRYAN --ED COURSEED Course as of 08/12/23 1605Wed Aug 12 Lactic normal. Patient requesting to leave prior to treatment complete. Discussed risks of leaving. [PS]ED Course User Index[PS] Brian Bryan DODiagnosis/Impression as of 08/12/23 1605SeizureChest pain, unspecified typeProcedures:ProceduresMDM:Medical Decision MakingStjesika Turner is a 53 year old female [...] [place]ov[place] MDSpecialty: PN-[facility] AND [address] [address]Ksoxi: [phone]-Emergency DepartmentSpecialty: Emergency Exk[address] [place] [address]Twblf: [phone]: If symptoms worsen as documented in the dischargeElectronically signed by:Brian Bryan DO08/12/23 1605Brian Bryan DO08/12/23 1605 77673-0Nyagsyfeb Emergency department NzuzNW7701-20-77B81:05:59[facility] Emergency department [id number] for patient nryz71757-0Rfikfbula department NoteLNNARRATIVEFormatted C-CDA narrative text50 Wade [id number] OMYSNSJGWJNCMXYRQTWA5453-60-25V65:05:5 [id number]|1.2.840.1143 [id number] [facility]
[2023-11-20 12:07] LABS: Albumin 2.9 g/dL (3.4-5.0); Albumin/Globulin Ratio 0.8 (1.1-1.8); Anion Gap 8.6 mEq/L (5.0-15.0); Bilirubin Direct 0.4 mg/dL (0-0.2); Bilirubin Indirect, Calculated 0.4 mg/dL (0.2-0.8); Bilirubin Total 0.8 mg/dL (0.2-1.0); Globulin 3.6 g/dL (2.3-3.5); Magnesium 2.3 mg/dL (1.6-2.4); Potassium 3.6 mEq/L (3.5-5.1); Protein, Total 6.5 g/dL (6.4-8.2)
[2023-11-20 12:18] LABS: PT Prothrombin Time 15.7 SECONDS (9.5-12.5); Protime INR 1.44
[2023-11-20 12:20] LABS: Absolute Basophils 0.1 K/uL (0-0.5); Absolute Eosinophils 0.1 K/uL (0-0.5); Absolute Lymphocytes (CBC) 1.9 K/uL (0.7-4.9); Absolute Monocytes 1.1 K/uL (0.1-1.3); Absolute Neutrophil 6.9 K/uL (1.8-8.0); Basophils % 0.6 % (0-1.3); Eosinophils % 0.9 % (0-4.4); Hematocrit 28.8 % (36.0-45.0); Hemoglobin 8.9 g/dL (12.0-15.0); Lymphocytes % 19.1 % (15.3-44.8); MCH 24.9 pg (27.0-35.0); MCHC 30.9 g/dL (32.0-36.0); MCV 80.7 fL (80-100); MPV 7.8 fL (7.6-11.3); Monocytes % 11.2 % (3.3-12.3); Neutrophils % 68.2 % (41.7-73.7); Nucleated RBC Absolute Count 0.1 (0-0); Nucleated Red Blood Cells % 1.3 % (0-0); Platelets 297 thou/uL (152-406); RBC Red Blood Cell Count 3.57 M/uL (3.86-4.86); Red Cell Distribution Width 22.5 % (12.1-15.2)
[2023-11-20 12:33] LABS: Differential Total Cells Count 100; Eosinophils 1 % (0-3); Lymphocytes 27 % (15-42); Monocytes 6 % (0-10); Nucleated Red Blood Cells 2 /100WBC; Segmented Neutrophils 66 % (40-80)
[2023-11-20 12:34] LABS: Anisocytosis 2+; Blood Morphology Comment NOTED (NOT SEEN); Hypochromasia 3+; Platelet Estimate ADEQ; Target Cells 1+
[2023-11-20 13:00] LABS: SARS-CoV-2 Antigen CONTROL BLUE LINE VIS/BG OK; SARS-CoV-2 Antigen Rapid Res Negative (Negative)
[2023-11-21 14:37] VITALS: BP 139/97; TEMP 98.6; O2SAT 100
--- NOTE | 2023-11-21 14:52 | RAD REPORT ---
EXAM DESCRIPTION: XR Chest, 1 View CLINICAL HISTORY: The patient is 53 years old and is Female; COPD TECHNIQUE: Frontal view of the chest. COMPARISON: 11/12/2023 chest radiograph FINDINGS: LUNGS: Exam is degraded secondary to underpenetration. Allowing for this, no acute focal consolidation. PLEURAL SPACE: No appreciable pleural effusion or pneumothorax. MEDIASTINUM: Stable enlargement of the cardiomediastinal silhouette. BONES/JOINTS: ACDF hardware. IMPRESSION: Exam is degraded secondary to underpenetration. Allowing for this, no acute focal consol idation. Electronically signed by: Chidi Curry MD 11/20/2023 07:30 AM CDT Due to temporary technical issues with the PACS/Fluency reporting system, reports are being signed by the in house radiologists without review as a courtesy to insure prompt reporting. The interpreting radiologist is fully responsible for the content of the report.
--- NOTE | 2023-11-23 14:49 | EKG ---
Test Date: 2023-11-20 Test Time: 06:49:22 [employer] Agent: CANDACE MEASUREMENT RESULTS: Intervals: Rate: 107 WI: 138 QRSD: 88 QT: 346 QTc: 461 Rogers: P: 73 WI: 138 QRS: 131 T: 52 INTERPRETIVE STATEMENTS: Sinus tachycardia Biatrial enlargement Right axis deviation Abnormal ECG Compared to ECG 11/13/2023 06:06:14 Atrial abnormality now present Electronically Signed On 11-23-23 14:40:33 CDT by Saad Leavitt
== END 2023-11-20 08:18 | disposition left against medical advice (07) ==
LOC: ER 05:46
DX: R52 Pain, unspecified (principal); R06.02 Shortness of breath; R05.9 Cough, unspecified; R11.0 Nausea; R22.43 Localized swelling, mass and lump, lower limb, bilateral; R22.33 Localized swelling, mass and lump, upper limb, bilateral; I10 Essential (primary) hypertension; I50.9 Heart failure, unspecified; J44.9 Chronic obstructive pulmonary disease, unspecified; Z88.8 Allergy status to other drugs, medicaments and biological substances; Z91.018 Allergy to other foods; Z11.52 Encounter for screening for COVID-19
CPT/HCPCS: 36415; 71045; 80048; 80076; 83605; 83735; 83880; 85025; 85610; 86850; 86900; 86901; 87040; 87804; 87811; 93005; 96374; 96375; 99285

== ENCOUNTER 2024-04-02 09:50 | Emergency (ER) | payer OTHER ==
--- OUTSIDE RECORDS SUMMARY | 2024-04-02 10:23 | XMS REPORT | Continuity of Care Document ---
Author Name Unknown Address [address] [facility]. [address] [place] [address] [facility] thconnect Address [address] [facility] [address] [place] [address] Care Team Providers Care Camelid Fiber Sorter Name Role Phone KarencampbellAneta Bolden Primary Care Physician PANKAJ OBREGON Attending Clinician Un available AYDEE GO Attending Clinician Unavailable MARIANELA BURGESS Attending Clinician UnavailADAM Moreno Attending Clinician Unavailable THOMAS LOZOYA Attending Clinician Nina MARIAH Quiroga Attending Clinician Unavailable MD GERRY Attending Clinician Unavailab le Doctor Unassigned, [place] Attending Clinician U GUSTAVO Renee Attending Clinician Unavailable MORALES BALL Attending Clinician Unavailab RADHA Vargas Attending Clinician Unavailable RADHA WYATT Attending Clinician Unavailable Gerardo CAMPOS, Veronique Olivia Attending Clinician + [phone] DARRICK ALTAMIRANO Attending Clinician Unavailabl itz Del Castillo WEIGHER BULKER, Olena Attending Clinician [phone] Jenny MITTAL, Alfonso Moseley Attending Clinician +[phone] Lisandra ELIZONDO, Darrick Suarez. Attending Clinician [phone] Morena CAMPOS, Jodi Gonzalez Attending Clinician Unavail able TAL BENAVIDEZ Attending Clinician Unavailable Mj Bryan DO Attending Clinician [phone] Tal Benavidez MD Attending Clinician [phone] MOJGAN SIMENTAL Attending Clinician Unav Connor Ortiz MD Attending Clinician + [phone] Kamille ELIZONDO, Mojgan Mueller Attending Clinician + Madeline Mckinley RN Attending Clinician Unavailab MADELINE Edwards Attending Clinician Unavailable MADELINE PIERRE Attending Clinician Unavailable Megan Rondon MD Attending Clinician [phone] Cr Altamirano MD Attending Clinician +[phone] Ivis Mcdermott MD Attending Clinician +[phone] Ryder Vaca MD Attending Clinici an AARON LEDESMA Attending Clinician Unavailable Cris Molina MD Attending Clinician +[phone] EFRA BABCOCK Attending Clinician Un available MYLA LIEBERMAN Attending Clinician Unavailable JUANY GREEN Attending Clinician Unavailable CINDI, CAMPAIGNS Attending Clinician Unavaila SIDDHARTH Kaye Attending Clinician UnavailMARGOT Dexter Attending Clinician Unavailable SARAI JULES Attending Clinician Unavaila YONATAN Juarez Attending Clinician Unava radha Loyola MD, [place] Olivia Attending Clinician Unavailab monroe Obregon MD, Pankaj Attending Clinician +[phone] Edward Altamirano DO Attending Clinician +[phone] Bud ELIZONDO, Edward Attending Clinician +[phone] EDWARD FERRER Attending Clinician Unavailable DEMETRIUS TOBAR Attending Clinician Unavailab QUIN Armenta Attending Clinician Unavail koki Scruggs WEIGHER BULKER, Quin R Attending Clinician + [phone] MJ BRYAN Attending Clinician Unavailable Jenifer ELIZONDO, Marianela Hamilton Attending Clinician [phone] Abbi ELIZONDO, Aydee Attending Clinician +[phone] Provider, Not In System Attending Clinician Unav Dallas Allen Attending Clinician +[phone] Jose ELIZONDO, Adam Attending Clinician [phone] Mercedez ELIZONDO, Harry Attending Clinician +[phone] Rocael ELIZONDO, Antwon Attending Clinician [phone] Yue Bui MD Attending Clinician [phone] Connie Davey MD Attending Clinician [phone] Jasen ELIZONDO, Mariah Attending Clinician [phone] Valerio ELIZONDO, Thomas Reddy Attending Clinician +[phone] CONNIE DAVEY Attending Clinician UnavailAlfonso Oh Attending Clinician Unavailable RITCHIE WARREN Attending Clinician Unavailable Briana ELIZONDO, Ritchie Stoner Attending Clinician [phone] Rk RN, Blanca Attending Clinician +[phone] Reji ELIZONDO, Halima Hummel Attending Clinician + [phone] Ning Geller MD Attending Clinician [phone] Parrish Diane MD Attending Clinici an PARRISH DIANE Attending Clinician Unavaila DAMI Mariscal Attending Clinician Unavailable Dami Lowry MD Attending Clinician [phone] Corey DUMONT, Maria Teresa Attending Clinician + [phone] CHANTEL BOJORQUEZ Attending Clinician CHANTEL Kelly Attending Clinician Jack Ibrahim MD, Brandyn Otoole Attending Clinician [phone] SELINA MARTINES Attending Clinician Unavailable Sapna Vargas DO Attending Clinician +[phone] Tyrel ELIZONDO, Glory Katz Attending Clinician + Selina Martines MD Attending Clinician [phone] Vaccine, Bozrah Dangelo Attending Clinician U chelsi Pak MD, Jose Attending Clinician [phone] JOSE PKA Attending Clinician Unavailable WILLIAMS VIRK Attending Clinician Unavaila ble Ibikunmonroe INFORMATION CODER, Williams F Attending Clinician [phone] Brandy CAMPOS, Miky Attending Clinician Unavailab monroe Chakraborty INFORMATION CODER, Shinta Attending Clinician [phone] Ebrahim INFORMATION CODER, Rania Attending Clinician [phone] Unknown, Attending Attending Clinician Unavailab le UNKNOWN, ATTENDING Attending Clinician Unavailab Estefania Berg S Attending Clinician [phone] Yehuda Arcos MD Attending Clinician [phone] PANKAJ OBREGON Admitting Clinician Un available MARIANELA BURGESS Admitting Clinician Unavailab ADAM Cabrera Admitting Clinician Unavailable MARIAH ALDRIDGE Admitting Clinician Unavailable RADHA WYATT Admitting Clinician Unavailable DARRICK ALTAMIRANO Admitting Clinician UnavailDarrick Geiger MD Admitting Clinician [phone] TAL BENAVIDEZ Admitting Clinician Unavailable Tal Benavidez MD Admitting Clinician +[phone] MOJGAN SIMENTAL Admitting Clinician Mojgan Veras MD Admitting Clinician + CR ALTAMIRANO Admitting Clinician Unavailable CONNIE DAVEY Admitting Clinician UnavailAlfonso Oh Admitting Clinician Unavailable RITCHIE WARREN Admitting Clinician Unavailable NING GELLER Admitting Clinician Unavaila DAMI Mariscal Admitting Clinician Unavailable Dami Lowry MD Admitting Clinician [phone] BRANDYN IBRAHIM Admitting Clinician Unavailable Brandyn Ibrahim MD Admitting Clinician [phone] GLORY ESTEVES Admitting Clinician Unav ailable WILLIAMS VIRK Admitting Clinician Unavaila ble Payers Payer Name Policy Type Policy Number Effective Date Expirati on Date Source [facility] CYNTHIA VORA [id number] 2023 00:00:00 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 [id number] 2023 00:00:00 [facility] SESAR SEVILLA COPAY FOCUS 9 [id number] 2023 00:00:00 MEDICAID PENDING PENDING 2022 00:00:00 Problems Condition Name Condition Details Condition Category Status Onset Date Resolution Date Last Treatment Date Treating Clinician Comments Source 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 systolic and diastolic congestive heart failure Disease Active 6-23 00:00: 00 [facility] Hypotensio n Hypotensio n Disease Active 6- 00:00: 00 [facility] LV (left ventricula r) mural thrombus LV (left ventricula r) mural thrombus Disease Active -28 00:00: 00 [facility] Pulmonary hypertensi on Pulmonary hypertensi on Disease Active -28 00:00: 00 [facility] Shortness of breath Shortness of breath Disease Active 5-27 00:00: 00 [facility] Other chest pain Other chest pain Disease Active 5-15 00:00: 00 [facility] Depression Depression Disease Active 3-13 00:00: 00 Cynthia Erazoa raul Anxiety Anxiety Disease Active 09-29 00:00: 00 Cynthia Erazoa arul CAD (coronary artery disease) CAD (coronary artery disease) Disease Active 09-29 00:00: 00 Cynthia Santoyo Externa raul COPD (chronic obstructiv e pulmonary disease) (multi HCC) COPD (chronic obstructiv e pulmonary disease) (multi HCC) Disease Active 09-29 00:00: 00 Cynthia Erazoa raul History of colon polyps History of colon polyps Disease Active 09-29 00:00: 00 Cynthia Erazoa raul Marijuana use Marijuana use Disease Active 09-29 00:00: 00 Cynthia Erazoa raul Seizure (multi HCC) Seizure (multi HCC) Disease Active 09-29 00:00: 00 Cynthia Erazoa raul Tobacco use Tobacco use Disease Active 09-29 00:00: 00 Cynthia Erazoa raul Type 2 diabetes mellitus with hyperglyce ortega, without long-term current use of insulin (multi HCC) Type 2 diabetes mellitus with hyperglyce ortega, without long-term current use of insulin (multi HCC) Disease Active 09-11 00:00: 00 Cynthia Erazoa raul CHF (congestiv e heart failure) (multi HCC) CHF (congestiv e heart failure) (multi HCC) Disease Active 09-11 00:00: 00 Cynthia Santoyo Externa raul Bipolar disorder (multi HCC) Bipolar disorder (multi HCC) Disease Active 09-11 00:00: 00 Cynthia Santoyo Externa raul Seizure disorder (multi HCC) Seizure disorder (multi HCC) Disease Active 09-11 00:00: 00 Cynthia Erazoa raul Prediabete s Prediabete s Disease Active 09-11 00:00: 00 Cynthia Erazoa raul Bilateral leg weakness Bilateral leg weakness Disease Active 2022-07 00:00: 00 [facility] Bilateral leg weakness Bilateral leg weakness Disease Active 2022-07 00:00: 00 [facility] Pneumonia Pneumonia Disease Active 2022-07 00:00: 00 [facility] Cavitary lesion of lung Cavitary lesion of lung Disease Active 2022-07 00:00: 00 [facility] Cervical disc disorder with radiculopa thy, high cervical region Cervical disc disorder with radiculopa thy, high cervical region Disease Active 2022-07 00:00: 00 [facility] Cervical myelopathy Cervical myelopathy Disease Recurre cae 2022-07 00:00: 00 [facility] Cord compressio n Cord compressio n Disease Recurre nce 03-30 00:00: 00 [facility] Cauda equina compressio n Cauda equina compressio n Disease Active 03-30 00:00: 00 [facility] Seizure Seizure Disease Recurre cae 08-02 00:00: 00 [facility] Cardiomyop athy Cardiomyop athy Disease Active 08-01 00:00: 00 [facility] NSVT (nonsustai keisha ventricula r tachycardi a) NSVT (nonsustai keisha ventricula r tachycardi a) Disease Active 08-01 00:00: 00 [facility] Elevated brain natriureti c peptide (BNP) level Elevated brain natriureti c peptide (BNP) level Disease Active 07-31 00:00: 00 [facility] Chest pain, unspecifie d type Chest pain, unspecifie d type Disease Active 07-31 00:00: 00 [facility] Elevated brain natriureti c peptide (BNP) level Elevated brain natriureti c peptide (BNP) level Disease Active 07-31 00:00: 00 [facility] Coronary artery disease involving iroquois coronary artery of iroquois heart without angina pectoris Coronary artery disease involving iroquois coronary artery of iroquois heart without angina pectoris Disease Active 07-31 00:00: 00 [facility] Snores Snores Disease Active 07-31 00:00: 00 [facility] Cigarette smoker Cigarette smoker Disease Active 07-31 00:00: 00 [facility] Primary hypertensi on Primary hypertensi on Disease Active 07-31 00:00: 00 [facility] Other hyperlipid emia Other hyperlipid emia Disease Active 07-31 00:00: 00 [facility] Coronary artery disease involving iroquois coronary artery of iroquois heart without angina pectoris Coronary artery disease involving iroquois coronary artery of iroquois heart without angina pectoris Disease Active 07-31 00:00: 00 [facility] Chronic bilateral low back pain with bilateral sciatica Chronic bilateral low back pain with bilateral sciatica Disease Active 2021-07 0 00:00: 00 [facility] 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 Disease Active 04-15 00:00: 00 [facility] Neuroforam inal stenosis of cervical spine Neuroforam inal stenosis of cervical spine Disease Active 04-15 00:00: 00 [facility] Stroke-lik e symptoms Stroke-lik e symptoms Disease Active 04-13 00:00: 00 [facility] Bipolar disorder, in partial remission, most recent episode manic Bipolar disorder, in partial remission, most recent episode manic Disease Active 09-27 00:00: 00 [facility] Neuroforam inal stenosis of lumbar spine Neuroforam inal stenosis of lumbar spine Disease Active 09-27 00:00: 00 [facility] Bilateral acute otitis media, recurrence not specified, unspecifie d otitis media type Bilateral acute otitis media, recurrence not specified, unspecifie d otitis media type Disease Active 09-27 00:00: 00 [facility] Lumbar spinal stenosis Lumbar spinal stenosis Disease Active 09-27 00:00: 00 [facility] Right-side d low back pain with sciatica, sciatica laterality unspecifie d Right-side d low back pain with sciatica, sciatica laterality unspecifie d Disease Active 09-27 00:00: 00 [facility] Generalize d anxiety disorder Generalize d anxiety disorder Disease Active 09-27 00:00: 00 [facility] Agoraphobi a Agoraphobi a Disease Active 09-27 00:00: 00 [facility] Bipolar disorder, in partial remission, most recent episode manic Bipolar disorder, in partial remission, most recent episode manic Disease Active 09-27 00:00: 00 [facility] Obsessive compulsive disorder Obsessive compulsive disorder Disease Active 09-27 00:00: 00 [facility] Breast mass, left Breast mass, left Disease Active 09-17 00:00: 00 [facility] Anxiety Anxiety Disease Active 09-17 00:00: 00 [facility] Lower back pain Lower back pain Disease Active 09-17 00:00: 00 [facility] High blood pressure High blood pressure Disease Active 09-17 00:00: 00 [facility] COPD (chronic obstructiv e pulmonary disease) COPD (chronic obstructiv e pulmonary disease) Disease Active 09-17 00:00: 00 [facility] Obesity Obesity Disease Active 09-17 00:00: 00 [facility] Breast pain Breast pain Disease Resolve d 09-17 00:00: 00 2015-09-18 00:00:00 2015-09-18 13:19:09 [facility] Allergies, Adverse Reactions, Alerts Allergy Name Allergy Type Status Severity Reaction(s) Onset Date Inactive Date Treating Clinician Comments Source FLUOXETI NE Allergy Active 03-29 00:00: 00 [facility] GREEN TEA Allergy Active High Other 03-29 00:00: 00 [facility] LEVETIRA CETAM Allergy Active High N\\T\\V 03-29 00:00: 00 [facility] Green Tea Propensi ty to adverse reaction s Active 03-29 00:00: 00 Seizure like activity [facility] Levetira cetam Propensi ty to adverse reaction s Active Nausea And Vomiting 00:00: 00 Intensifi es seizure [facility] Fluoxeti ne Propensi ty to adverse reaction s Active 03-29 00:00: 00 [facility] Green Tea Drug Allergy Active Other (See Comments) - 00:00: 00 Seizure like activity [facility] Levetira cetam Drug Allergy Active Nausea And Vomiting 03-29 00:00: 00 Intensifi es seizure [facility] Levetira cetam Propensi ty to adverse reaction s Active Other 11-17 00:00: 00 Intensifi es seizure Makes seizures worse Makes seizures worse Intensifi es seizure Cynthia gonzalez LEVETIRA CETAM DRUG INGREDI Active Other-Cmnt 11-17 00:00: 00 [facility] Levetira cetam Propensi ty to adverse reaction s Active Other - See comments 11-17 00:00: 00 Makes seizures worse [facility] Green Tea Propensi ty to adverse reaction s Active - 00:00: 00 [facility] GREEN TEA Allergy Active - 00:00: 00 [facility] FLUOXETI NE Allergy Active Med Rash 1- 00:00: 00 [facility] Fluoxeti ne Propensi ty to adverse reaction s Active Rash -14 00:00: 00 [facility] Fluoxeti ne Propensi ty to adverse reaction s Active Unknown - See comments 03-25 00:00: 00 [facility] FLUOXETI NE DRUG INGREDI Active Unknown-Cmnt 03-25 00:00: 00 [facility] Diclofen ac Propensi ty to adverse reaction s Active Anxiety 11-20 00:00: 00 Cynthia Garcia - Externa raul DICLOFEN AC DRUG INGREDI Active HYPERTENSION 11-20 00:00: 00 [facility] Green Tea Propensi ty to adverse reaction s Active Anxiety 08-10 00:00: 00 Seizure like activity Seizures Seizures Seizure like activity Cynthia Garcia - Externa l GREEN TEA DRUG INGREDI Active Med Other-Cmnt 08-10 00:00: 00 [facility] Green Tea Propensi ty to adverse reaction s to drug Active Other - See comments 08-10 00:00: 00 Seizures [facility] FLUOXETI NE HCL DRUG INGREDI Active Hives 03-19 00:00: 00 [facility] Fluoxeti ne Hcl Propensi ty to adverse reaction s Active Hives 03-19 00:00: 00 [facility] Family History Family Member Diagnosis Comments Start Date Stop Date Sourc e Natural mother Alcohol abuse C [facility] Natural mother Stroke [facility] Natural mother Alcohol abuse C [facility] Natural mother Cancer [facility] Natural mother Diabetes [facility] Natural mother Heart disease C [facility] Natural mother Hyperlipidemia [facility] Natural mother Kidney disease [facility] Natural mother Stroke [facility] Paternal uncle Diabetes [facility] Social History Social Habit Start Date Stop Date Quantity Comments Source History of tobacco use Passive smoker [facility] History SDOH Social Connections Get Together [facility] History SDOH Social Connections [facility] History SDOH Social Connections Membership [facility] History SDOH Social Connections Meetings [facility] History SDOH Alcohol Frequency [facility] History SDOH Alcohol Std Drinks [facility] History SDOH Alcohol Binge [facility] History SDOH Housing Homeless Last Year [facility] Sexual orientation C [facility] Alcoholic beverage intake 2024-01-09 00:00:00 2024-01-09 00:00:00 0 /d [facility] Education - What is the highest level of school you have completed or the highest degree you have received? 2023-09-30 00:00:00 2023-09-30 00:00:00 GED or equivalent Cynthia Garcia - External History of Social function 2023-08-03 00:00:00 2023-08-03 00:00:00 [facility] Alcohol intake 2023-06-02 00:00:00 2023-06-02 00:00:00 Current drinker of alcohol (finding) [facility] Exposure to SARS-CoV-2 (event) 2023-05-18 00:00:00 2023-05-28 07:28:00 Not sure [facility] History SDOH Housing Unable to Pay - In the last 12 months, was there a time when you were not able to pay the mortgage or rent on time? 2023-05-26 00:00:00 2023-05-26 00:00:00 Yes [facility] Cigarettes smoked current (pack per day) - Reported 2023-05-26 00:00:00 2023-05-26 00:00:00 [facility] Cigarette pack-years 2023-05-26 00:00:00 2023-05-26 00:00:00 [facility] Tobacco use and exposure 2023-05-26 00:00:00 2023-05-26 00:00:00 Smokeless tobacco non-user [facility] History SDOH Housing Places Lived 2023-03-30 00:00:00 2023-03-30 00:00:00 1 [facility] Alcohol Comment 2023-03-29 00:00:00 2023-03-29 00:00:00 2x a week [facility] History SDOH Social Connections Phone 2022-08-01 00:00:00 2022-08-01 00:00:00 5 [facility] History SDOH Social Connections Living 2022-08-01 00:00:00 2022-08-01 00:00:00 5 [facility] History SDOH Physical Activity DPW 2022-08-01 00:00:00 2022-08-01 00:00:00 0 [facility] History SDOH Physical Activity MPS 2022-08-01 00:00:00 2022-08-01 00:00:00 0 [facility] History SDOH Financial 2022-08-01 00:00:00 2022-08-01 00:00:00 3 [facility] History SDOH Food Worry 2022-08-01 00:00:00 2022-08-01 00:00:00 1 [facility] History SDOH Food Scarcity 2022-08-01 00:00:00 2022-08-01 00:00:00 1 [facility] History SDOH Transport Med 2022-08-01 00:00:00 2022-08-01 00:00:00 2 [facility] History SDOH Transport Non-Med 2022-08-01 00:00:00 2022-08-01 00:00:00 2 [facility] Sex Assigned At 1970 00:00:00 1970 00:00:00 [facility] Smoking Status Start Date Stop Date Source Never smoked tobacco Cynthia Garcia - External Ex-smoker 2023-05-26 00:00:00 2023-05-26 00:00:00 Adi [facility] Smokes tobacco daily 2023-03-29 00:00:00 [facility] Medications Ordered Medication Name Filled Medication Name Start Date Stop Date Current Medication? Ordering Clinician Indication Dosage Frequency Signature (SIG) Comments Components Source LORazepam (ATIVAN) tablet 1 mg 01-12 04:00: 00 01-12 03:56 :00 No 1mg 1 mg, Oral, ONCE, 1 dose, [facility]24 [facility]FRAN (PF)) [facility] 8 mg 01-12 04:00: 00 01-12 03:55 :00 No 8mg 8 mg, Slow IV Push, ONCE, 1 dose, [facility]12[facility]24 [facility] (4 mg/mL) injection 6 mg 01-12 04:00: 00 01-12 03:55 :00 No 6mg 6 mg, Slow IV Push, ONCE, 1 dose, On Thu01/12/24 at 2300, STAT [facility] mirtazapine (REMERON) tablet 15 mg 01-10 02:00: 00 Yes 15mg [facility] atorvastati n (LIPITOR) tablet 40 mg 01-10 02:00: 00 Yes 40mg [facility] MULTIVITAMI N ORAL 01-09 15:56: 06 Yes 1{tbl} Take 1 Tab by mouth daily. [facility] omega-3 fatty acids-vitam in E (FISH OIL) 1,000 mg capsule 01-09 15:56: 06 Yes 1g Take 1 g by mouth daily. [facility] loratadine (CLARITIN LIQUI-GEL) 10 mg capsule 01-09 15:56: 06 Yes Take by mouth daily. [facility] metoprolol succinate XL 50 mg 24 hr tablet 01-09 15:56: 06 01-09 00:00 :00 No 50mg Take 1 tablet by mouth in the morning. [facility] KCL (KLOR-CON M20) tablet 40 mEq 01-09 15:45: 00 01-09 17:43 :00 No 40meq 40 mEq, Oral, ONCE, 1 dose, On 01/10/24 at 1045, Routine [facility] ondansetron 4 mg tablet 01-09 14:46: 23 01-09 00:00 :00 No 4mg Take 1 tablet by mouth every 8 (eight) hours as needed for Nausea and Vomiting (N/V). [facility] perflutren protein-A microsphr (OPTISON) injection 3 mL 01-09 14:15: 00 01-09 14:15 :00 No [id number] 3mL 3 mL, IV Push, ONCE, 1 dose, On Thu01/10/24 at 0915, Routine [facility] tamsulosin (FLOMAX) capsule 0.4 mg 01-09 14:00: 00 Yes .4mg 0.4 mg, Oral, DAILY, First dose on 01/10/24 at 0900, Until Discontinu ed, Routine [facility] metoprolol succinate XL (TOPROL XL) tablet 12.5 mg 01-09 14:00: 00 Yes 12.5mg [facility] DULoxetine (CYMBALTA) capsule 30 mg 01-09 14:00: 00 Yes 30mg 30 mg, Oral, DAILY, First dose on 01/10/24 at 0900, Until Discontinu ed, Routine [facility] digoxin (LANOXIN) tablet 125 mcg 01-09 14:00: 00 Yes 125ug 125 mcg, Oral, DAILY, First dose on 01/10/24 at 0900, Until Discontinu ed [facility] aspirin chewable tablet 81 mg 01-09 14:00: 00 Yes 81mg 81 mg, Oral, DAILY, First dose on 01/10/24 at 0900, Until Discontinu ed, Routine [facility] nicotine (NICODERM) 21 mg/24 hr patch 1 Patch 01-09 13:45: 00 Yes 1{patch } 1 Patch, Topical, Administer over 24 Hours, Q24H, First dose on 01/10/24 at 0845, Until Discontinu ed, Routine [facility] gabapentin (NEURONTIN) capsule 100 mg 01-09 13:00: 00 Yes 100mg 100 mg, Oral, TID, First dose on 01/10/24 at 0800, Until Discontinu ed, Routine [facility] divalproex (DEPAKOTE) delayed release tablet 1,000 mg 01-09 13:00: 00 Yes 1000mg 1,000 mg, Oral, Q12H, First dose on 01/10/24 at 0800, Until Discontinu ed, Routine [facility] cyclobenzap rine (FLEXERIL) tablet 5 mg 01-09 13:00: 00 Yes 5mg 5 mg, Oral, TID, First dose on 01/10/24 at 0800, Until Discontinu ed, Routine [facility] apixaban (ELIQUIS) tablet 5 mg 01-09 13:00: 00 02-27 12:59 :00 Yes [id number] 5mg 5 mg, Oral, BID, 98 doses, First dose on 01/10/24 at 0800, Last dose on 02/27/24 at 2000, Routine, Indication s: DVT/PE [facility] FENTanyl PF (SUBLIMAZE (PF)) injection 25 mcg 01-09 03:08: 20 01-10 03:07 :20 Yes 25ug 25 mcg, Slow IV Push, Q4HPRN, Starting on 01/09/24 at 2208, Until 01/10/24 at 2207, Routine, Pain (scale 7-10), Pain (scale 4-6) [facility] acetaminoph en (TYLENOL) tablet 650 mg 01-09 03:08: 07 Yes 650mg 650 mg, Oral, Q6HPRN, Starting on 01/09/24 at 2208, Until Discontinu ed, Routine, Pain (scale 1-3) [facility] ondansetron (ZOFRAN (PF)) injection 4 mg 01-09 02:45: 00 01-09 01:53 :00 No 4mg 4 mg, Slow IV Push, ONCE, 1 dose, On [facility] 01/09/24 at 2145, MICHAEL [facility] ipratropium -albuteroL (DUONEB) 0.5 mg-3 mg(2.5 mg base)/3 mL nebulizer solution 3 mL 01-09 02:45: 00 01-09 02:01 :00 No 3mL 3 mL, Inhalation , ONCE, 1 dose, On [facility] 01/09/24 at 2145, Routine [facility] cefTRIAXone (ROCEPHIN) 1,000 mg in NaCl 0.9% (NS) 100 mL MINI-BAG 01-09 02:30: 00 01-09 03:10 :00 No 1000mg 1,000 mg, IV Piggyback, ONCE, 1 dose, On [facility] 01/09/24 at 2130, Administer over 30 Minutes, 100 mL, Reason for Anti-Infec tive: Documented Infection, Documented Infection Site: Respirator y, Duration of Therapy: Once (ED) [facility] famotidine (PEPCID (PF)) injection 20 mg 01-09 01:45: 00 01-09 01:53 :00 No 20mg 20 mg, Slow IV Push, ONCE, 1 dose, On 01/09/24 at 2045, MICHAEL [facility] iopamidol (ISOVUE 370-500 mL) injection 90 mL 01-09 00:45: 00 01-09 00:45 :00 No [id number] 90mL 90 mL, Intravenou s, ONCE, 1 dose, On 01/09/24 at 1945, Routine [facility] atorvastati n 40 mg tablet 01-09 00:00: 00 Yes [id number] 20mg Take 0.5 tablets by mouth at bedtime. [facility] furosemide 40 mg tablet 01-09 00:00: 00 Yes [id number] 40mg Take 1 tablet by mouth every morning and evening. [facility] ipratropium -albuteroL 0.5 mg-3 mg(2.5 mg base)/3 mL nebulizer solution 01-09 00:00: 00 Yes [id number] 3mL Inhale 3 mL every 6 (six) hours as needed for Wheezing or Shortness of Breath. [facility] predniSONE 20 mg tablet 01-09 00:00: 00 01-15 04:59 :00 Yes [id number] 40mg Take 2 tablets by mouth in the morning for 5 days. [facility] FENTanyl PF (SUBLIMAZE (PF)) injection 50 mcg 01-08 22:45: 00 01-08 23:10 :00 No 50ug 50 mcg, Slow IV Push, ONCE, 1 dose, On 01/09/24 at 1745, STAT [facility] ondansetron (ZOFRAN (PF)) injection 4 mg 01-08 21:30: 00 01-08 21:47 :00 No 4mg 4 mg, Slow IV Push, ONCE, 1 dose, On 01/09/24 at 1630, MICHAEL [facility] aspirin tablet 325 mg 01-08 21:15: 00 01-08 21:47 :00 No 325mg 325 mg, Oral, ONCE, 1 dose, On 01/09/24 at 1615, STAT [facility] spironolact one 25 mg tablet 12-15 00:00: 00 01-15 04:59 :00 No [id number] 25mg Take 1 tablet by mouth in the morning for 30 days. [facility] furosemide (LASIX) tablet 40 mg 12-14 22:00: 00 Yes 40mg 40 mg, Oral, QAM+PM, First dose (after last modificati on) on Thu12/15/23 at 1700, Until Discontinu ed, Routine [facility] spironolact one (ALDACTONE) tablet 25 mg 12-14 14:00: 00 Yes 25mg 25 mg, Oral, DAILY, First dose on Thu12/15/23 at 0900, Until Discontinu ed, Routine [facility] tamsulosin (FLOMAX) capsule 0.4 mg 12-14 14:00: 00 Yes .4mg 0.4 mg, Oral, DAILY, First dose on Thu12/15/23 at 0900, Until Discontinu ed, Routine [facility] metoprolol succinate XL (TOPROL XL) tablet 12.5 mg 12-14 14:00: 00 Yes 12.5mg 12.5 mg, Oral, DAILY, First dose on Thu12/15/23 at 0900, Until Discontinu ed, Routine [facility] lisinopriL (PRINIVIL,Z ESTRIL) tablet 2.5 mg 12-14 14:00: 00 Yes 2.5mg [facility] DULoxetine (CYMBALTA) capsule 30 mg 12-14 14:00: 00 Yes 30mg 30 mg, Oral, DAILY, First dose on Thu12/15/23 at 0900, Until Discontinu ed, Routine [facility] digoxin (LANOXIN) tablet 125 mcg 12-14 14:00: 00 Yes 125ug 125 mcg, Oral, DAILY, First dose on Thu12/15/23 at 0900, Until Discontinu ed [facility] aspirin chewable tablet 81 mg 12-14 14:00: 00 Yes 81mg 81 mg, Oral, DAILY, First dose on Thu12/15/23 at 0900, Until Discontinu ed, Routine [facility] furosemide (LASIX) injection 40 mg 12-14 14:00: 00 12-14 13:49 :00 No 40mg 40 mg, Slow IV Push, ONCE, 1 dose, On Thu12/15/23 at 0900, Routine [facility] MULTIVITAMI N ORAL 12-14 11:08: 41 Yes 1{tbl} Take 1 Tab by mouth daily. [facility] omega-3 fatty acids-vitam in E (FISH OIL) 1,000 mg capsule 12-14 11:08: 41 Yes 1g Take 1 g by mouth daily. [facility] loratadine (CLARITIN LIQUI-GEL) 10 mg capsule 12-14 11:08: 41 Yes Take by mouth daily. [facility] ondansetron 4 mg tablet 12-14 11:08: 41 Yes 4mg Take 1 tablet by mouth every 8 (eight) hours as needed for Nausea and Vomiting (N/V). [facility] methylPREDN ISolone sod succ (SOLU-MEDRO L (PF)) injection 40 mg 12-14 11:00: 00 Yes 40mg 40 mg, Intravenou s, Q6H, First dose (after last modificati on) on Thu12/15/23 at 0600, Until Discontinu ed, Routine [facility] ipratropium -albuteroL (DUONEB) 0.5 mg-3 mg(2.5 mg base)/3 mL nebulizer solution 3 mL 12-14 08:08: 34 Yes 3mL 3 mL, Inhalation , QIDPRN, Starting on Thu12/15/23 at 0308, Until Discontinu ed, Routine, Wheezing, Shortness of Breath, Bronchospa sm, Chest tightness [facility] ipratropium -albuteroL (DUONEB) 0.5 mg-3 mg(2.5 mg base)/3 mL nebulizer solution 3 mL 12-14 03:19: 38 Yes 3mL 3 mL, Inhalation , QIDPRN, Starting on Thu12/14/23 at 2219, Until Discontinu ed, Routine, Wheezing, Shortness of Breath, Bronchospa sm, Chest tightness [facility] Sliding Scale Insulin - Lispro (HumaLOG) 12-14 02:00: 00 Yes [facility] mirtazapine (REMERON) tablet 15 mg 12-14 02:00: 00 Yes 15mg 15 mg, Oral, QHS, First dose on Thu12/14/23 at 2100, Until Discontinu ed, [facility] atorvast[facility] (LIPITOR) tablet 40 mg 12-14 02:00: 00 Yes 40mg 40 mg, Oral, QHS, First dose on Thu12/14/23 at 2100, Until Discontinu ed, Routine [facility] lacosamide (VIMPAT) tablet 100 mg 12-14 01:00: 00 Yes 100mg 100 mg, Oral, BID, First dose on Thu12/14/23 at 2000, Until Discontinu ed, Routine [facility] gabapentin (NEURONTIN) capsule 100 mg 12-14 01:00: 00 Yes 100mg 100 mg, Oral, TID, First dose on Thu12/14/23 at 2000, Until Discontinu ed, Routine [facility] divalproex (DEPAKOTE) delayed release tablet 1,000 mg 12-14 01:00: 00 Yes 1000mg 1,000 mg, Oral, Q12H, First dose on Thu12/14/23 at 2000, Until Discontinu ed, Routine [facility] cyclobenzap rine (FLEXERIL) tablet 5 mg 12-14 01:00: 00 Yes 5mg 5 mg, Oral, TID, First dose on Thu12/14/23 at 2000, Until Discontinu ed, Routine [facility] apixaban (ELIQUIS) tablet 5 mg 12-14 01:00: 00 02-28 00:59 :00 No [id number] 5mg 5 mg, Oral, BID, 152 doses, First dose on Thu12/14/23 at 2000, Last dose on Thu02/28/24 at 0800, Routine, Indication s: DVT/PE [facility] ondansetron (ZOFRAN (PF)) injection 4 mg 12-14 00:15: 00 12-13 23:26 :00 No 4mg 4 mg, Slow IV Push, ONCE, 1 dose, On Thu12/14/23 at 1915, Routine [facility] morpHINE (4 mg/mL) injection 4 mg 12-14 00:15: 00 12-13 23:27 :00 No 4mg 4 mg, Slow IV Push, ONCE, 1 dose, On Thu12/14/23 at 1915, STAT [facility] metFORMIN 500 mg tablet 12-14 00:00: 00 01-14 04:59 :00 No [id number] 500mg Take 1 tablet by mouth in the morning for 30 days. [facility] empaglifloz in (JARDIANCE) 10 mg tablet 12-14 00:00: 00 01-14 04:59 :00 No [id number] 10mg Take 1 tablet by mouth in the morning for 30 days. [facility] furosemide 40 mg tablet 12-14 00:00: 00 01-09 00:00 :00 No [id number] 60mg Take 1.5 tablets by mouth every morning and evening for 60 days. [facility] glucagon (GLUCAGEN DIAGNOSTIC KIT) injection 1 mg 12-13 23:57: 51 Yes 1mg [facility] dextrose 50 % in water (D50W) injection 25 mL 12-13 23:57: 51 Yes 25mL [facility] ondansetron (ZOFRAN (PF)) injection 4 mg 12-13 23:57: 45 Yes 4mg [facility] morpHINE (2 mg/mL) injection 2 mg 12-13 23:57: 39 12-14 23:56 :39 No 2mg 2 mg, Slow IV Push, Q4HPRN, Starting on Thu12/14/23 at 1857, Until Thu12/15/23 at 1856, Routine, Pain (scale 7-10) [facility] HYDROcodone -acetaminop hen (NORCO 5) 5-325 mg tablet 1 tablet 12-13 23:57: 36 12-15 23:56 :36 No 1{tbl} 1 tablet, Oral, Q6HPRN, Starting on Thu12/14/23 at 1857, Until Thu12/16/23 at 1856, Routine, Pain (scale 4-6) [facility] acetaminoph en (TYLENOL) tablet 650 mg 12-13 23:57: 28 Yes 650mg 650 mg, Oral, Q6HPRN, Starting on Thu12/14/23 at 185, Until Discontinu ed, Routine, Pain (scale 1-3), Temp > 38 C [facility] dicyclomine (BENTYL) tablet 20 mg 12-13 23:53: 34 Yes 20mg [facility] methylpredn isolone sod succ (SOLU-MEDRO L) injection 125 mg 12-13 23:00: 00 12-14 08:08 :57 No 125mg 125 mg, Intravenou s, Q6H, First dose on Thu12/14/23 at 1800, Until Discontinu ed, Routine [facility] ipratropium -albuteroL (DUONEB) 0.5 mg-3 mg(2.5 mg base)/3 mL nebulizer solution 3 mL 12-13 21:00: 00 Yes 3mL 3 mL, Inhalation , QID, First dose on Thu12/14/23 at 1600, Until Discontinu ed, Routine [facility] ondansetron (ZOFRAN (PF)) injection 4 mg 12-13 20:45: 00 12-13 19:40 :00 No 4mg 4 mg, Slow IV Push, ONCE, 1 dose, On Thu12/14/23 at 1545, Routine [facility] morpHINE (4 mg/mL) injection 4 mg 12-13 20:45: 00 12-13 19:41 :00 No 4mg 4 mg, Slow IV Push, ONCE, 1 dose, On Thu12/14/23 at 1545, STAT [facility] furosemide (LASIX) tablet 40 mg 12-03 14:00: 00 Yes 40mg 40 mg, Oral, DAILY, First dose (after last modificati on) on Thu12/04/23 at 0900, Until Discontinu ed, Routine [facility] mirtazapine (REMERON) tablet 15 mg 12-03 02:00: 00 Yes 15mg [facility] metoprolol succinate XL 25 mg 24 hr tablet 12-03 00:00: 00 Yes [id number] 12.5mg Take 0.5 tablets by mouth in the morning. [facility] Potassium Bicarb-Citr ic Acid (EFFER-K) effervescen t tablet 40 mEq 12-02 21:06: 00 12-02 23:09 :00 No 40meq 40 mEq, Oral, ONCE, 1 dose, On Thu12/03/23 at 1615, Routine [facility] metoprolol succinate XL (TOPROL XL) tablet 12.5 mg 12-02 16:00: 00 Yes 12.5mg 12.5 mg, Oral, DAILY, First dose on Thu12/03/23 at 1100, Until Discontinu ed, Routine [facility] sennosides (SENOKOT) tablet 8.6 mg 12-02 15:00: 00 Yes 8.6mg 8.6 mg, Oral, DAILY, First dose on Thu12/03/23 at 1000, Until Discontinu ed, Routine [facility] acetaminoph en (TYLENOL) tablet 650 mg 12-02 14:47: 07 Yes 650mg 650 mg, Oral, Q6HPRN, Starting on Thu12/03/23 at 0947, Until Discontinu ed, Routine, Pain (scale 1-3) [facility] ipratropium -albuteroL (DUONEB) 0.5 mg-3 mg(2.5 mg base)/3 mL nebulizer solution 3 mL 12-02 14:45: 00 Yes 3mL 3 mL, Inhalation , QID, First dose (after last modificati on) on Thu12/03/23 at 0945, Until Discontinu ed, Routine [facility] tamsulosin (FLOMAX) capsule 0.4 mg 12-02 14:00: 00 Yes .4mg 0.4 mg, Oral, DAILY, First dose on Thu12/03/23 at 0900, Until Discontinu ed, Routine [facility] DULoxetine (CYMBALTA) capsule 30 mg 12-02 14:00: 00 Yes 30mg 30 mg, Oral, DAILY, First dose on Thu12/03/23 at 0900, Until Discontinu ed, Routine [facility] digoxin (LANOXIN) tablet 125 mcg 12-02 14:00: 00 Yes 125ug 125 mcg, Oral, DAILY, First dose on Thu12/03/23 at 0900, Until Discontinu ed [facility] aspirin chewable tablet 81 mg 12-02 14:00: 00 Yes 81mg 81 mg, Oral, DAILY, First dose on Thu12/03/23 at 0900, Until Discontinu ed, Routine [facility] furosemide (LASIX) tablet 40 mg 12-02 14:00: 00 12-02 17:37 :33 No 40mg 40 mg, Oral, QAM+PM, First dose on Thu12/03/23 at 0900, Until Discontinu ed, Routine [facility] lacosamide (VIMPAT) tablet 100 mg 12-02 13:30: 00 Yes 100mg 100 mg, Oral, BID, First dose on Thu12/03/23 at 0830, Until Discontinu ed, Routine [facility] magnesium oxide (MAG-OX 400) tablet 400 mg 12-02 13:26: 00 12-02 14:24 :00 No 400mg 400 mg, Oral, ONCE, 1 dose, On Thu12/03/23 at 0830, Routine [facility] Potassium Bicarb-Citr ic Acid (EFFER-K) effervescen t tablet 40 mEq 12-02 13:19: 00 12-02 14:24 :00 No 40meq 40 mEq, Oral, ONCE, 1 dose, On Thu12/03/23 at 0830, Routine [facility] Sliding Scale Insulin - Lispro (HumaLOG) 12-02 13:00: 00 Yes Subcutaneo us, TID MEALS+HS, First dose on Thu12/03/23 at 0800, Until Discontinu ed, Routine [facility] gabapentin (NEURONTIN) capsule 100 mg 12-02 13:00: 00 Yes 100mg 100 mg, Oral, TID, First dose on Thu12/03/23 at 0800, Until Discontinu ed, Routine [facility] divalproex ER (DEPAKOTE ER) 24 hr tablet 1,000 mg 12-02 13:00: 00 Yes 1000mg 1,000 mg, Oral, Q12H, First dose on Thu12/03/23 at 0800, Until Discontinu ed, Routine [facility] cyclobenzap rine (FLEXERIL) tablet 5 mg 12-02 13:00: 00 Yes 5mg 5 mg, Oral, TID, First dose on Thu12/03/23 at 0800, Until Discontinu ed, Routine [facility] KCL (KLOR-CON M20) tablet 40 mEq 12-02 12:15: 00 12-02 14:24 :00 No 40meq 40 mEq, Oral, ONCE, 1 dose, On Thu12/03/23 at 0715, Routine [facility] KCL (KLOR-CON M20) tablet 20 mEq 12-02 04:00: 00 12-02 04:07 :00 No 20meq 20 mEq, Oral, ONCE, 1 dose, On Thu12/02/23 at 2300, Routine [facility] furosemide (LASIX) injection 40 mg 12-02 03:15: 00 12-02 02:36 :00 No 40mg 40 mg, Slow IV Push, ONCE, 1 dose, On Thu12/02/23 at 2215, Routine [facility] glucagon (GLUCAGEN DIAGNOSTIC KIT) injection 1 mg 12-02 02:54: 39 Yes 1mg 1 mg, Intramuscu lar, PRN, Starting on Thu12/02/23 at 2154, Until Discontinu ed, MICHAEL, Blood Glucose < or = 70 mg/dL and patient is NPO, unable to swallow or has mental changes. [facility] dextrose 50 % in water (D50W) injection 25 mL 12-02 02:54: 38 Yes 25mL 25 mL, Slow IV Push, PRN, Starting on Thu12/02/23 at 2154, Until Discontinu ed, MICHAEL, Blood Glucose < or = 70 mg/dL and patient is NPO, unable to swallow or has mental status changes. [facility] atorvastati n (LIPITOR) tablet 40 mg 12-02 02:00: 00 Yes 40mg 40 mg, Oral, QHS, First dose on Thu12/02/23 at 2100, Until Discontinu ed, Routine [facility] apixaban (ELIQUIS) tablet 5 mg 12-02 01:45: 00 02-28 00:59 :00 No [id number] 5mg 5 mg, Oral, BID, 176 doses, First dose on Thu12/02/23 at 2045, Last dose on Thu02/28/24 at 0800, Routine, Indication s: DVT/PE [facility] albuterol (PROVENTIL) 2.5 mg /3 mL (0.083 %) nebulizer solution 2.5 mg 12-02 01:40: 57 Yes 2.5mg [facility] ondansetron (ZOFRAN (PF)) injection 4 mg 12-02 01:02: 39 Yes 4mg 4 mg, Slow IV Push, Q6HPRN, Nausea and Vomiting (N/V), Starting on Thu12/02/23 at 2001, Doses of ondansetro n 16 mg and above need to be administer ed via IV piggyback. For Dose >=24mg ECG monitoring is advisable. [facility] lisinopriL 2.5 mg tablet 12-02 00:00: 00 Yes [id number] 2.5mg Take 1 tablet by mouth in the morning. [facility] acetaminoph en (OFIRMEV) IV piggyback 1,000 mg 12-01 22:15: 00 12-01 21:51 :00 No 1000mg 1,000 mg, IV Piggyback, at 400 mL/hr Administer over 15 Minutes, ONCE, 1 dose, On Thu12/02/23 at 1715, Routine, Is the patient strict NPO and unable to tolerate oral medication s? Yes [facility] iopamidol (ISOVUE 370-500 mL) injection 85 mL 12-01 19:15: 00 12-01 19:33 :00 No [id number] 85mL 85 mL, Intravenou s, ONCE, 1 dose, On Thu12/02/23 at 1415, Routine [facility] FENTanyl PF (SUBLIMAZE (PF)) injection 25 mcg 12-01 18:30: 00 12-01 19:38 :00 No 25ug 25 mcg, Slow IV Push, ONCE, 1 dose, On Thu12/02/23 at 1330, STAT [facility] NaCl 0.9% (NS) bolus infusion 1,000 mL 12-01 18:15: 00 12-01 21:00 :00 No 1000mL at 999 mL/hr, 1,000 mL, IV Infusion, ONCE, 1 dose, On Thu12/02/23 at 1315, STAT [facility] DULoxetine 30 mg capsule 11-28 00:00: 00 Yes [id number] 30mg Take 1 capsule by mouth in the morning. [facility] digoxin 125 mcg tablet 11-28 00:00: 00 Yes [id number] .125mg Take 1 tablet by mouth in the morning. [facility] tamsulosin 0.4 mg 24 hr capsule 11-28 00:00: 00 02-27 04:59 :00 No [id number] .4mg Take 1 capsule by mouth in the morning for 90 days. [facility] metoprolol succinate XL 50 mg 24 hr tablet 11-28 00:00: 00 12-02 00:00 :00 No [id number] 50mg Take 1 tablet by mouth in the morning. [facility] lisinopriL 5 mg tablet 11-28 00:00: 00 12-02 00:00 :00 No [id number] 5mg Take 1 tablet by mouth in the morning. [facility] spironolact one 25 mg tablet 11-28 00:00: 00 12-02 00:00 :00 No [id number] 50mg Take 2 tablets by mouth in the morning. [facility] metoprolol succinate XL (TOPROL XL) tablet 50 mg 11-27 14:00: 00 Yes 50mg 50 mg, Oral, DAILY, First dose (after last modificati on) on Thu11/28/23 at 0900, Until Discontinu ed, Routine [facility] KCL (KLOR-CON M20) tablet 40 mEq 11-27 12:30: 00 11-27 13:39 :00 No 40meq 40 mEq, Oral, ONCE, 1 dose, On 11/28/23 at 0730, Routine [facility] potassium chloride in water (KCL) 20 mEq/100 mL RTU IVPB 20 mEq 11-27 11:00: 00 11-27 13:40 :00 No 20meq 20 mEq, IV Piggyback, ONCE, 1 dose, On 11/28/23 at 0600, 100 mL [facility] clonazePAM (KLONOPIN) tablet 0.5 mg 11-27 02:45: 00 Yes .5mg 0.5 mg, Oral, QHS, First dose on Thu11/27/23 at 2145, Until Discontinu ed, Routine [facility] lacosamide (VIMPAT) tablet 100 mg 11-27 01:00: 00 Yes 100mg 100 mg, Oral, BID, First dose (after last modificati on) on Thu11/27/23 at 2000, Until [facility]continu ed, [facility] 24 hr tablet 11-27 00:00: 00 Yes [id number] 1000mg Take 2 tablets by mouth every 12 (twelve) hours. [facility] gabapentin 100 mg capsule 11-27 00:00: 00 Yes [id number] 100mg Take 1 capsule by mouth in the morning and 1 capsule at noon and 1 capsule in the evening. [facility] apixaban 5 mg tablet 11-27 00:00: 00 03-01 04:59 :00 No [id number] Take 2 tablets by mouth 2 (two) times daily for 3 days, THEN 1 tablet 2 (two) times daily for 90 days. Indication s: history of deep vein thrombosis [facility] furosemide 40 mg tablet 11-27 00:00: 00 12-14 00:00 :00 No [id number] 40mg Take 1 tablet by mouth every morning and evening. [facility] lacosamide (VIMPAT) 200 mg in NaCl 0.9% (NS) 50 mL piggyback 11-26 18:45: 00 11-26 23:04 :00 No 200mg 200 mg, IV Piggyback, ONCE, 1 dose, On Thu11/27/23 at 1345, Administer over 30 Minutes, 50 mL [facility] furosemide (LASIX) tablet 40 mg 11-26 14:00: 00 Yes 40mg 40 mg, Oral, QAM+PM, First dose on Thu11/27/23 at 0900, Until Discontinu ed, Routine [facility] divalproex ER (DEPAKOTE ER) 24 hr tablet 1,000 mg 11-26 13:00: 00 Yes 1000mg 1,000 mg, Oral, Q12H, First dose (after last modificati on) on Thu11/27/23 at 0800, Until Discontinu ed, Routine [facility] furosemide (LASIX) injection 40 mg 11-26 01:00: 00 11-26 01:57 :00 No 40mg 40 mg, Slow IV Push, BID, 1 dose, First dose (after last modificati on) on Thu11/26/23 at 1999, Routine [facility] divalproex ER (DEPAKOTE ER) 24 hr tablet 1,250 mg 11-26 01:00: 00 11-26 02:38 :40 No 1250mg 1,250 mg, Oral, Q12H, First dose (after last modificati on) on Thu11/26/23 at 1999, Until Discontinu ed, Routine [facility] cyanocobala min (DODEX) injection 1,000 mcg 11-25 18:30: 00 11-25 19:31 :00 No 1000ug 1,000 mcg, Intramuscu lar, ONCE, 1 dose, On Thu11/26/23 at 1330, [facility] (VIT[facility]IN B1) 100 mg in NaCl 0.9% (NS) piggyback 11-25 18:00: 00 11-30 13:59 :00 No 100mg IV Piggyback, DAILY, 5 doses, First dose on Thu11/26/23 at 1300, Last dose on Thu11/30/23 at 0900, 50 mL [facility] digoxin (LANOXIN) tablet 125 mcg 11-25 16:30: 00 Yes 125ug 125 mcg, Oral, DAILY, First dose on Thu11/26/23 at 1130, Until Discontinu ed, Routine [facility] metoprolol succinate XL (TOPROL XL) tablet 25 mg 11-25 16:15: 00 11-27 13:09 :49 No 25mg 25 mg, Oral, DAILY, First dose on Thu11/26/23 at 1115, Until Discontinu ed, Routine [facility] apixaban (ELIQUIS) tablet 10 mg -09 01:00: 00 11-30 00:59 :00 No 10mg [Order 1 Start] Name: apixaban (ELIQUIS) tablet 10 mg Signed Summary: 10 mg, Oral, BID, 10 doses, First dose (after last modificati on) on Thu11/25/23 at 1999, Last dose on Thu11/30/23 at 0800, Routine, Indication s: DVT/PE [Order 1 End] [Order 2 Start] Name: apixaban (ELIQUIS) tablet 5 mg Signed Summary: 5 mg, Oral, BID, First dose (after last modificati on) on Thu11/30/23 at 1999, Until Discontinu ed, Routine, Indication s: DVT/PE [Order 2 End] [facility] furosemide (LASIX) injection 40 mg 2023-11-25 01:00: 00 11-25 16:08 :20 No 40mg 40 mg, Slow IV Push, BID, First dose (after last modificati on) on Thu11/25/23 at 1999, Until Discontinu ed, Routine [facility] spironolact one (ALDACTONE) tablet 12.5 mg 2023-0 11-24 21:00: 00 Yes 12.5mg 12.5 mg, Oral, DAILY, First dose on Thu11/25/23 at 1600, Until Discontinu ed, Routine [facility] lisinopriL (PRINIVIL,Z ESTRIL) tablet 5 mg 2023-0 11-24 21:00: 00 Yes 5mg 5 mg, Oral, DAILY, First dose on Thu11/25/23 at 1600, Until Discontinu ed, Routine [facility] apixaban (ELIQUIS) tablet 5 mg 4-0 11-24 16:30: 00 11-24 16:18 :00 No 5mg 5 mg, Oral, ONCE, 1 dose, On Thu11/25/23 at 1130, Routine, Indication s: DVT/PE [facility] apixaban (ELIQUIS) tablet 5 mg 4-0 11-24 14:00: 00 11-24 15:40 :42 No 5mg 5 mg, Oral, BID, 11 doses, First dose (after last modificati on) on Thu11/25/23 at 0900, Last dose on Thu11/30/23 at 0800, Routine, Indication s: DVT/PE [facility] divalproex ER (DEPAKOTE ER) 24 hr tablet 1,000 mg 11-24 13:00: 00 11-25 17:41 :19 No 1000mg 1,000 mg, Oral, Q12H, First dose (after last modificati on) on Thu11/25/23 at 0800, Until Discontinu ed, Routine [facility] ondansetron (ZOFRAN (PF)) injection 4 mg 11-24 03:45: 00 11-24 02:49 :00 No 4mg 4 mg, Slow IV Push, ONCE, On Thu11/24/23 at 2245, For 1 dose, Doses of ondansetro n 16 mg and above need to be administer ed via IV piggyback. For Dose >=24mg ECG monitoring is advisable. [facility] divalproex (DEPAKOTE) delayed release tablet 500 mg 11-24 03:45: 00 11-24 04:49 :00 No 500mg 500 mg, Oral, ONCE, 1 dose, On Thu11/24/23 at 2245, Routine [facility] nitroglycer in (NITROSTAT) sublingual tablet 0.4 mg 11-24 02:36: 01 Yes .4mg 0.4 mg, Sublingual , Q5MIN PRN, Starting on Thu11/24/23 at 2136, Until Discontinu ed, Routine, Chest pain [facility] nystatin (NILSTAT) 100,000 unit/mL suspension 500,000 Units 11-24 01:15: 00 11-26 20:18 :35 No 5mL 500,000 Units (5 mL), Oral, QID, First dose on Thu11/24/23 at 2015, Until Discontinu ed, Routine [facility] acetaminoph en-codeine (TYLENOL #3) 300-30 mg tablet 1 tablet 11-24 01:07: 37 Yes 1{tbl} 1 tablet, Oral, Q6HPRN, Starting on Thu11/24/23 at 2007, Until Discontinu ed, Routine, Pain (scale 4-6) [facility] iopamidol (ISOVUE 370-500 mL) injection 100 mL 11-23 23:15: 00 11-23 22:15 :00 No [id number] 100mL 100 mL, Intravenou s, ONCE, 1 dose, On Thu11/24/23 at 1815, Routine [facility] milrinone in 5 % dextrose (PRIMACOR) 20 mg/100 mL (200 mcg/mL) infusion RTU 11-23 20:45: 00 11-24 18:50 :54 No .25ug/k g/min 0.25 mcg/kg/min ?94.5 kg (7.0875 mL/hr, rounded to 7.09 mL/hr), IV Infusion, CONTINUOUS , Starting on Thu11/24/23 at 1545, 1. Dose to be adjusted by physician or provider. 2. Notify MD if MAP < 65 mmHG. [facility] polyethylen e glycol 3350 powder 17 g 11-23 19:15: 00 Yes 17g 17 g, Oral, DAILY, First dose on Thu11/24/23 at 1415, Until Discontinu ed, Routine [facility] ipratropium -albuteroL (DUONEB) 0.5 mg-3 mg(2.5 mg base)/3 mL nebulizer solution 3 mL 11-23 19:00: 00 Yes 3mL 3 mL, Inhalation , TID, First dose (after last modificati on) on Thu11/24/23 at 1400, Until Discontinu ed, Routine [facility] ondansetron (ZOFRAN (PF)) injection 4 mg 11-23 17:16: 00 11-23 17:24 :00 No 4mg 4 mg, Slow IV Push, ONCE, On Thu11/24/23 at 1230, For 1 dose, Doses of ondansetro n 16 mg and above need to be administer ed via IV piggyback. For Dose >=24mg ECG monitoring is advisable. [facility] apixaban (ELIQUIS) tablet 10 mg 11-23 15:45: 00 11-24 13:38 :20 No 10mg 10 mg, Oral, BID, 14 doses, First dose on Thu11/24/23 at 1045, Last dose on Thu11/30/23 at 2000, Routine, Indication s: DVT/PE [facility] milrinone in 5 % dextrose (PRIMACOR) 20 mg/100 mL (200 mcg/mL) infusion RTU 11-23 15:45: 00 11-23 20:33 :33 No .125ug/ kg/min 0.125 mcg/kg/min ?94.5 kg (3.5438 mL/hr, rounded to 3.54 mL/hr), IV Infusion, CONTINUOUS , Starting on Thu11/24/23 at 1045, 1. Dose to be adjusted by physician or provider. 2. Notify MD if MAP < 65 mmHG. [facility] HYDROcodone -acetaminop hen (NORCO 5) 5-325 mg tablet 1 tablet 11-23 14:28: 00 11-23 15:37 :00 No 1{tbl} 1 tablet, Oral, ONCE, 1 dose, On Thu11/24/23 at 0930, Routine [facility] hydrALAZINE (APRESOLINE ) tablet 10 mg 11-23 12:30: 00 11-25 13:28 :25 No 10mg 10 mg, Oral, Q8H, First dose on Thu11/24/23 at 0730, Until Discontinu ed, Routine [facility] iohexoL (OMNIPAQUE 180-20 mL) injection 11-22 20:31: 56 11-22 20:32 :10 No ONCE INTRA PROCEDURE, Starting on Thu11/23/23 at 1531, Until Thu11/23/23 at 1532, Routine, CV Intraproce dure [facility] nitroglycer in (TRIDIL) 2 mg in 10 mL D5W for Cardiac Cath 11-22 19:32: 38 11-22 20:32 :10 No ONCE INTRA PROCEDURE, Starting on Thu11/23/23 at 1432, Until Thu11/23/23 at 1532, Routine, CV Intraproce dure [facility] heparin 1,000 unit/mL injection 11-22 19:31: 28 11-22 20:32 :10 No ONCE INTRA PROCEDURE, Starting on Thu11/23/23 at 1431, Until Thu11/23/23 at 1532, Routine, CV Intraproce dure [facility] midazolam (VERSED) injection 11-22 19:24: 54 11-22 20:32 :10 No ONCE INTRA PROCEDURE, Starting on Thu11/23/23 at 1424, Until Thu11/23/23 at 1532, Routine, CV Intraproce dure [facility] FENTanyl PF (SUBLIMAZE (PF)) injection 11-22 19:21: 00 11-22 20:32 :10 No ONCE INTRA PROCEDURE, Starting on Thu11/23/23 at 1421, Until Thu11/23/23 at 1532, Routine, CV Intraproce dure [facility] lidocaine 1% (PF) (XYLOCAINE) injection 11-22 19:20: 00 11-22 20:32 :10 No ONCE INTRA PROCEDURE, Starting on Thu11/23/23 at 1420, Until Thu11/23/23 at 1532, Routine, CV Intraproce dure [facility] furosemide 20 mg tablet 11-22 15:47: 27 11-27 00:00 :00 No 20mg Take 1 tablet by mouth every morning and evening. [facility] milrinone in 5 % dextrose (PRIMACOR) 20 mg/100 mL (200 mcg/mL) infusion RTU 11-22 15:45: 00 11-23 15:32 :54 No .25ug/k g/min 0.25 mcg/kg/min ?94.5 kg (7.0875 mL/hr, rounded to 7.09 mL/hr), IV Infusion, CONTINUOUS , Starting on Thu11/23/23 at 1045, 1. Dose to be adjusted by physician or provider. 2. Notify MD if MAP < 65 mmHG. [facility] DULoxetine (CYMBALTA) capsule 30 mg 11-22 14:00: 00 11-27 00:00 :00 No 30mg 30 mg, Oral, DAILY, First dose on Thu11/23/23 at 0900, Until Discontinu ed, Routine [facility] magnesium oxide (MAG-OX 400) tablet 400 mg 11-22 13:45: 00 11-22 14:00 :00 No 400mg 400 mg, Oral, ONCE, 1 dose, On Thu11/23/23 at 0845, Routine [facility] hydrOXYzine (ATARAX) tablet 50 mg 11-22 13:42: 15 Yes 50mg 50 mg, Oral, Q8HPRN, Starting on Thu11/23/23 at 0842, Until Discontinu ed, Routine, Anxiety [facility] KCL (KLOR-CON M20) tablet 40 mEq 11-22 10:45: 00 11-22 10:20 :00 No 40meq 40 mEq, Oral, ONCE, 1 dose, On Thu11/23/23 at 0545, Routine [facility] mirtazapine (REMERON) tablet 15 mg 11-22 02:00: 00 Yes 15mg 15 mg, Oral, QHS, First dose on Thu11/22/23 at 2100, Until Discontinu ed, Routine [facility] atorvastati n (LIPITOR) tablet 40 mg 11-22 02:00: 00 11-25 16:05 :43 No 40mg 40 mg, Oral, QHS, First dose on Thu11/22/23 at 2100, Until Discontinu ed, Routine [facility] divalproex (DEPAKOTE) delayed release tablet 500 mg 11-22 01:00: 00 11-23 12:27 :34 No 500mg 500 mg, Oral, BID, First dose on Thu11/22/23 at 2000, Until Discontinu ed, Routine [facility] milrinone in 5 % dextrose (PRIMACOR) 20 mg/100 mL (200 mcg/mL) infusion RTU 11-21 19:30: 00 11-22 15:38 :58 No .125ug/ kg/min 0.125 mcg/kg/min ?94.5 kg (3.5438 mL/hr, rounded to 3.54 mL/hr), IV Infusion, CONTINUOUS , Starting on Thu11/22/23 at 1430, 1. Dose to be adjusted by physician or provider. 2. Notify MD if MAP < 65 mmHG. [facility] diazePAM (VALIUM) injection 2 mg 11-21 19:28: 00 11-21 20:15 :00 No 2mg 2 mg, Intravenou s, ONCE, 1 dose, On Thu11/22/23 at 1430, Routine [facility] gabapentin (NEURONTIN) capsule 100 mg 11-21 19:00: 00 Yes 100mg 100 mg, Oral, TID, First dose on Thu11/22/23 at 1400, Until Discontinu ed, Routine [facility] furosemide (LASIX) injection 40 mg 11-21 19:00: 00 11-24 18:54 :28 No 40mg 40 mg, Slow IV Push, TID, First dose on Thu11/22/23 at 1400, Until Discontinu ed, Routine [facility] ondansetron (ZOFRAN-ODT ) disintegrat ing tablet 4 mg 11-21 18:45: 00 11-21 18:25 :00 No 4mg 4 mg, Oral, ONCE, 1 dose, On Thu11/22/23 at 1345, Routine [facility] perflutren lipid microsphere s (DEFINITY) injection 2 mL 11-21 16:45: 00 11-21 16:45 :00 No [id number] 2mL 2 mL, IV Push, ONCE, 1 dose, On Thu11/22/23 at 1145, Routine [facility] furosemide (LASIX) injection 40 mg 11-21 14:15: 00 11-21 18:23 :20 No 40mg 40 mg, Slow IV Push, BID, 2 doses, First dose on 11/22/23 at 0915, Last dose on 11/22/23 at 2000, Routine [facility] losartan (COZAAR) tablet 25 mg 11-21 14:15: 00 11-21 20:14 :04 No 25mg 25 mg, Oral, DAILY, First dose on 11/22/23 at 0915, Until Discontinu ed, Routine [facility] tamsulosin (FLOMAX) capsule 0.4 mg 11-21 14:00: 00 Yes .4mg 0.4 mg, Oral, DAILY, First dose on 11/22/23 at 0900, Until Discontinu ed, Routine [facility] pantoprazol e (PROTONIX) EC tablet 40 mg 11-21 14:00: 00 Yes 40mg 40 mg, Oral, DAILY, First dose on 11/22/23 at 0900, Until Discontinu ed, Routine [facility] aspirin chewable tablet 81 mg 11-21 14:00: 00 Yes 81mg 81 mg, Oral, DAILY, First dose on 11/22/23 at 0900, Until Discontinu ed, Routine [facility] predniSONE (DELTASONE) tablet 40 mg 11-21 14:00: 00 11-25 13:14 :00 No 40mg 40 mg, Oral, DAILY, 5 doses, First dose on 11/22/23 at 0900, Last dose on Arpita 11/26/23 at 0900, Routine [facility] iopamidol (ISOVUE 370-500 mL) injection 80 mL 11-21 14:00: 00 11-21 14:00 :00 No [id number] 80mL 80 mL, Intravenou s, ONCE, 1 dose, On 11/22/23 at 0900, Routine [facility] Sliding Scale Insulin - Lispro (HumaLOG) 11-21 13:00: 00 Yes Subcutaneo us, TID MEALS+HS, First dose on Thu11/22/23 at 0800, Until Discontinu ed, Routine [facility] divalproex ER (DEPAKOTE ER) 24 hr tablet 500 mg 11-21 13:00: 00 11-24 02:43 :24 No 500mg 500 mg, Oral, Q12H, First dose on Thu11/22/23 at 0800, Until Discontinu ed, Routine [facility] ipratropium -albuteroL (DUONEB) 0.5 mg-3 mg(2.5 mg base)/3 mL nebulizer solution 3 mL 11-21 09:00: 00 11-23 15:56 :58 No 3mL 3 mL, Inhalation , Q4H, First dose on Thu11/22/23 at 0400, Until Discontinu ed, Routine [facility] furosemide (LASIX) injection 40 mg 11-21 07:45: 00 11-21 07:15 :00 No 40mg 40 mg, Slow IV Push, ONCE, 1 dose, On Thu11/22/23 at 0245, Routine [facility] sodium chloride 7% (HYPER-IRVIN) nebulizer solution 4 mL 11-21 07:00: 00 11-23 14:32 :09 No 4mL 4 mL, Inhalation , DAILY, First dose on Thu11/22/23 at 0200, Until Discontinu ed, Routine [facility] morpHINE (2 mg/mL) injection 2 mg 11-21 06:52: 11 Yes 2mg 2 mg, Slow IV Push, Q4HPRN, Starting on Thu11/22/23 at 0152, Until Discontinu ed, Routine, Pain (scale 7-10) [facility] heparin 25,000 Units/250 mL (Premixed Bag) in 0.45 % NS 11-21 06:43: 53 11-23 15:32 :54 No 0U/h 0-2,750 Units/hr (0-27.5 mL/hr), IV Infusion, TITRATE, Parameters in Admin. Instr., Starting on Thu11/22/23 at 0143, Initiate dosing: -Patient 83 kg or under: 1,000 Units/hr (Calculate d dose at 12 units/kg/h r) -Patient over 83 k,000 units/hr DO NOT Exceed the MAXIMUM 1,000 units/hr for initiation of heparin drip. CAUTION - If LMWH given in ER, AVOID bolus and start next dose/drip 12 hrs after ER dosage. Must program rate using programmab le infusion pump. Check with the ordering provider first prior to any administra tion should the patient be on existing/a dditional anticoagul ant therapy. Range, Dosing and Testing: FOR [place], [facility], AND [facility] [place] ONLY - aPTT < 35: Bolus 5000 units, increase rate 300 units/hr - aPTT 35-44: Bolus 3000 units, increase rate 200 units/hr - aPTT 45-54: Increase rate 100 units/hr - aPTT 55-85: NO CHANGE - aPTT 86-95: Decrease rate 100 units/hr - aPTT 96-120: Hold 30 minutes, decrease rate 150 units/hr - aPTT > 120: Hold 60 minutes, decrease rate 200 units/hr Check aPTT 6 hours after initiation , then Q6H after every change, aPTT Q12H once therapeuti c levels are reached. FOR [facility] ONLY - aPTT < 40: Bolus 5000 units, increase rate 300 units/hr - aPTT 40-49: Bolus 3000 units, increase rate 200 units/hr - aPTT 50-59: Increase rate 100 units/hr - aPTT 60-85: NO CHANGE - aPTT 86-95: Decrease rate 100 units/hr - aPTT 96-120: Hold 30 minutes, decrease rate 150 units/hr - aPTT > 120: Hold 60 minutes, decrease rate 200 units/hr Check aPTT 6 hours after initiation , then Q6H after every change, aPTT Q12H once therapeuti c levels are reached. DO NOT ADJUST INITIAL BOLUS OR INITIAL INFUSION RATE. [facility] heparin (1,000 unit/mL, 10 mL vial) for Rebolusing 11-21 06:43: 39 11-23 15:32 :54 No 3000U FOR REBOLUSING , Starting on Thu11/22/23 at 0143, Until Tu11/24/23 at 1032, Routine, Dosing based on aPPT testing parameters (refer to continuous heparin drip order). [facility] glucagon (GLUCAGEN DIAGNOSTIC KIT) injection 1 mg 11-21 06:36: 57 Yes 1mg [facility] dextrose 50 % in water (D50W) injection 25 mL 11-21 06:36: 57 Yes 25mL [facility] acetaminoph en (TYLENOL) tablet 650 mg 11-21 06:36: 44 Yes 650mg 650 mg, Oral, Q6HPRN, Starting on Thu11/22/23 at 0136, Until Discontinu ed, Routine, Pain (scale 1-3) [facility] ondansetron (ZOFRAN (PF)) injection 4 mg 11-21 04:45: 00 11-21 03:46 :00 No 4mg 4 mg, Slow IV Push, ONCE, 1 dose, On 11/21/23 at 2345, MICHAEL [facility] acetaminoph en (TYLENOL) tablet 975 mg 11-21 04:45: 00 11-21 03:44 :00 No 975mg 975 mg, Oral, ONCE, 1 dose, On 11/21/23 at 2345, MICHAEL [facility] HEPARIN SODIUM (PORCINE) 1,000 UNIT/ML BOLUS ACS ORDER SET 11-21 04:15: 00 11-21 04:33 :00 No 4000U 4,000 Units, IV Push, ONCE, 1 dose, On 11/21/23 at 2315, MICHAEL [facility] morpHINE (4 mg/mL) injection 4 mg 11-21 04:15: 00 11-21 04:27 :00 No 4mg 4 mg, Slow IV Push, ONCE, 1 dose, On 11/21/23 at 2315, STAT [facility] methylpredn isolone sod succ (SOLU-MEDRO L) injection 125 mg 11-21 04:15: 00 11-21 03:24 :00 No 125mg 125 mg, Slow IV Push, ONCE NOW, 1 dose, On 11/21/23 at 2315, MICHAEL [facility] heparin 25,000 Units/250 mL (Premixed Bag) in 0.45 % NS 11-21 04:11: 29 11-21 06:44 :36 No 1000U/h 1,000 Units/hr (10 mL/hr), IV Infusion, TITRATE, Parameters in Admin. Instr., Starting on 11/21/23 at 2311, Initiate dosing: -Patient 83 kg or under: 1,000 Units/hr (Calculate d dose at 12 units/kg/h r) -Patient over 83 k,000 units/hr DO NOT Exceed the MAXIMUM 1,000 units/hr for initiation of heparin drip. CAUTION - If LMWH given in ER, AVOID bolus and start next dose/drip 12 hrs after ER dosage. Must program rate using programmab le infusion pump. Check with the ordering provider first prior to any administra tion should the patient be on existing/a dditional anticoagul ant therapy. Range, Dosing and Testing: FOR [place], [facility], AND [facility] ONLY - aPTT < 35: Bolus 5000 units, increase rate 300 units/hr - aPTT 35-44: Bolus 3000 units, increase rate 200 units/hr - aPTT 45-54: Increase rate 100 units/hr - aPTT 55-85: NO CHANGE - aPTT 86-95: Decrease rate 100 units/hr - aPTT 96-120: Hold 30 minutes, decrease rate 150 units/hr - aPTT > 120: Hold 60 minutes, decrease rate 200 units/hr Check aPTT 6 hours after initiation , then Q6H after every change, aPTT Q12H once therapeuti c levels are reached. FOR [facility] ONLY - aPTT < 40: Bolus 5000 units, increase rate 300 units/hr - aPTT 40-49: Bolus 3000 units, increase rate 200 units/hr - aPTT 50-59: Increase rate 100 units/hr - aPTT 60-85: NO CHANGE - aPTT 86-95: Decrease rate 100 units/hr - aPTT 96-120: Hold 30 minutes, decrease rate 150 units/hr - aPTT > 120: Hold 60 minutes, decrease rate 200 units/hr Check aPTT 6 hours after initiation , then Q6H after every change, aPTT Q12H once therapeuti c levels are reached. DO NOT ADJUST INITIAL BOLUS OR INITIAL INFUSION RATE. [facility] ipratropium -albuteroL (DUONEB) 0.5 mg-3 mg(2.5 mg base)/3 mL nebulizer solution 3 mL 11-21 04:00: 00 11-21 02:51 :00 No 3mL 3 mL, Inhalation , ONCE, 1 dose, On 11/21/23 at 2300, [facility] ipratropium -albuteroL (DUONEB) 0.5 mg-3 mg(2.5 mg base)/3 mL nebulizer solution 3 mL 11-21 03:30: 00 11-21 02:37 :00 No 3mL 3 mL, Inhalation , ONCE, 1 dose, On 11/21/23 at 2230, [facility] NaCl 0.9% (NS) bolus infusion 500 mL 11-21 03:15: 00 11-21 04:14 :00 No 500mL at 999 mL/hr, 500 mL, IV Infusion, ONCE, 1 dose, On 11/21/23 at 2215, STAT [facility] mirtazapine 15 mg tablet 09-30 00:00: 00 Yes 15mg Take 1 tablet by mouth at bedtime. [facility] Metformin HCl 500 MG oral Tablet 09-29 14:28: 11 Yes 500mg Take 1 tablet (500 mg total) by mouth daily (with breakfast) . [facility]onzalez Ibuprofen (MOTRIN) 200 MG oral Tablet 09-29 14:27: 32 09-29 00:00 :00 No 200mg Q.[id number] 3D Take 1 tablet (200 mg total) by mouth every 8 hours as needed for pain. [facility] Fluticasone -Umeclidin- Vilant (Trelegy Ellipta) 100-62.5-25 MCG/ACT inhalation AEROSOL POWDER, BREATH ACTIVATED 09-29 00:00: 00 Yes [id number] 1{puff} Inhale 1 puff into the lungs daily. [facility] gonz[facility] Carvedilol 12.5 MG oral Tablet 09-29 00:00: 00 Yes [id number] 12.5mg Take 1 tablet (12.5 mg total) by mouth in the morning and 1 tablet (12.5 mg total) in the evening. Take with meals. [facility] gonzalez Duloxetine HCl [address] Particles 09-29 00:00: 00 Yes [id number] 20mg Take 1 capsule (20 mg total) by mouth daily. [facility] Acetaminoph en-Codeine (TYLENOL/CO DEINE #3) 300-30 MG oral Tablet 09-29 00:00: 00 Yes [id number] 1{tbl} Q.25D Take 1 tablet by mouth every 6 hours as needed for pain. [facility] gonz[facility] Clonazepam 1 MG oral Tablet 09-29 00:00: 00 Yes [id number] 1mg QD Take 1 tablet (1 mg total) by mouth nightly as needed for anxiety. [facility] gonzalez spironolact one 25 mg tablet 09-29 00:00: 00 11-27 00:00 :00 No 25mg Take 1 tablet by mouth in the morning and 1 tablet in the evening. [facility] metFORMIN 500 mg tablet 09-28 00:00: 00 12-14 00:00 :00 No 500mg Take 1 tablet by mouth in the morning. [facility] Carvedilol 12.5 MG oral Tablet 09-28 00:00: [...] evening. Take with meals. Cynthia gonzalez Arformotero raul Tartrate 15 MCG/2ML inhalation Inhalant Solution 09-21 [...] MG oral Tablet 09-11 00:00: 00 Yes [id number] 15mg QD Take 1 tablet (15 mg total) by mouth nightly as needed. [facility] gonzalez Acetaminoph en-Codeine (TYLENOL/CO DEINE #3) 300-30 MG oral Tablet 09-11 00:00: 00 09-29 00:00 :00 No [id number] 1{tbl} Q.25D Take 1 tablet by mouth every 6 hours as needed for pain. [facility] gonzalez DULoxetine (CYMBALTA) 60 MG capsule 09-09 00:00: 00 10-08 23:59 :00 No 60mg QD Take 1 capsule (60 mg total) by mouth daily for 30 days. [facility] varenicline (CHANTIX) 1 mg tablet 09-08 10:51: 03 Yes 1mg Q.5D Take 1 tablet (1 mg total) by mouth 2 (two) times daily Give with meals and with a full glass of water.. [facility] atorvastati n (LIPITOR) 20 MG tablet 09-08 10:51: 03 Yes 20mg QD Take 1 tablet (20 mg total) by mouth daily. [facility] Cyanocobala min (Vitamin B-12) 1000 MCG oral Tablet 09-08 00:00: 00 10-08 04:59 :00 No 1000ug Take 1 tablet (1,000 mcg total) by mouth daily. [facility]thia gonzalez lidocaine (LIDODERM) 4 % patch 09-08 00:00: 00 10-07 23:59 :00 No 3{patch } Q24H Place 3 patches onto the skin daily for 30 days. [facility] metoprolol succinate (TOPROL-XL) 25 MG 24 hr tablet 09-07 16:47: 05 09-07 00:00 :00 No 25mg QD Take 1 tablet (25 mg total) by mouth daily. [facility] albuterol HFA (VENTOLIN HFA) 90 mcg/actuati on inhaler 09-07 16:47: 05 09-07 00:00 :00 No 1{puff} Inhale 1 puff by mouth via inhaler every 6 (six) hours as needed for Wheezing. [facility] fluticasone -umeclidin- vilanter (Trelegy Ellipta) 200-62.5-25 mcg DsDv 09-07 16:47: 05 09-07 00:00 :00 No QD Inhale by mouth via inhaler daily. [facility] Albuterol HFA 108 (90 Base) MCG/ACT IN AERS 09-07 00:00: 00 10-07 04:59 :00 No 1{puff} Q.25D Inhale 1 puff into the lungs every 6 hours as needed. [facility] gonzalez Baclofen 5 MG oral Tablet 09-07 00:00: 00 10-07 04:59 :00 No 5mg Take 1 tablet (5 mg total) by mouth nightly. [facility] gonzalez Sennosides- Docusate Sodium 8.6-50 MG oral Tablet 09-07 00:00: 00 10-07 04:59 :00 No 2{tbl} Take 2 tablets by mouth 2 times daily. [facility] gonzalez tamsulosin (FLOMAX) 0.4 mg Cap 24 hr capsule 09-07 00:00: 00 10-06 23:59 :00 No .4mg QD Take 1 capsule (0.4 mg total) by mouth daily for 30 days. [facility] polyethylen e glycol (GLYCOLAX) 17 gram packet 09-07 00:00: 00 10-06 23:59 :00 No 17g Q.5D Take 17 g by mouth 2 (two) times daily for 30 days. [facility] gabapentin (NEURONTIN) 400 MG capsule - 00:00: 00 10-06 23:59 :00 No 400mg Q.[id number] 3D Take 1 capsule (400 mg total) by mouth 3 (three) times daily for 30 days. [facility] furosemide (LASIX) 20 MG tablet - 00:00: 00 10-06 23:59 :00 No 20mg QD Take 1 tablet (20 mg total) by mouth daily for 30 days. [facility] fluticasone -umeclidin- vilanter (Trelegy Ellipta) 200-62.5-25 mcg DsDv 09-07 00:00: 00 10-06 23:59 :00 No 1{inhal ation} QD Inhale 1 Inhalation by mouth via inhaler daily for 30 days. [facility] metoprolol succinate (TOPROL-XL) 25 MG 24 hr tablet 09-07 00:00: 00 10-06 23:59 :00 No 25mg QD Take 1 tablet (25 mg total) by mouth daily for 30 days. [facility] lacosamide (VIMPAT) 100 mg in NaCl 0.9% (NS) 50 mL piggyback 08-12 21:15: 00 08-12 21:23 :00 No 100mg 100 mg, IV Piggyback, ONCE, 1 dose, On Thu08/12/23 at 1515, Administer over 30 Minutes, 50 mL
Facu lty member approving Restricted medication : MJ BRYAN [facility] Dicyclomine HCl 20 MG oral Tablet -18 00:00: 00 Yes 20mg Take 1 tablet (20 mg total) by mouth 4 times daily. [facility] gonzalez Tamsulosin HCl 0.4 MG oral Capsule 2022-07- 00:00: 00 Yes TAKE ONE (1) CAPSULE(S) BY MOUTH DAILY FOR 5 DAYS. Cynthia gonzalez tamsulosin (FLOMAX) 0.4 mg Cap 24 hr capsule 2022-07 00:00: 00 06-22 23:59 :00 No .4mg QD Take 1 capsule (0.4 mg total) by mouth daily for 5 days. [facility] varenicline (CHANTIX) 1 mg tablet 2022-07 19:45: 32 Yes 1mg Q.5D Take 1 tablet (1 mg total) by mouth 2 (two) times daily Give with meals and with a full glass of water.. [facility] atorvastati n (LIPITOR) 20 MG tablet 2022-07 19:45: 32 Yes 20mg QD Take 1 tablet (20 mg total) by mouth daily. [facility] metoprolol succinate (TOPROL-XL) 25 MG 24 hr tablet 2022-07 19:45: 32 09-07 00:00 :00 No 25mg QD Take 1 tablet (25 mg total) by mouth daily. [facility] albuterol HFA (VENTOLIN HFA) 90 mcg/actuati on inhaler 2022-07 19:45: 32 09-07 00:00 :00 No 1{puff} Inhale 1 puff by mouth via inhaler every 6 (six) hours as needed for Wheezing. [facility] fluticasone -umeclidin- vilanter (Trelegy Ellipta) 200-62.5-25 mcg DsDv 2022-07 19:45: 32 09-07 00:00 :00 No QD Inhale by mouth via inhaler daily. [facility] acetaminoph en-codeine (TYLENOL #3) 300-30 mg per tablet 2022-07 18:02: 00 06-16 00:00 :00 No 1{tbl} Take 1 tablet by mouth every 4 (four) hours as needed for Pain. [facility] DULoxetine (CYMBALTA) 30 MG capsule 2022-07 00:00: 00 2024- 02-20 00:00 :00 No 30mg QD Take 1 capsule (30 mg total) by mouth daily for 90 days. [facility] [facility] metroNIDAZO LE (FLAGYL) 500 MG tablet 2022-07 00:00: 00 07-04 23:59 :00 No 500mg Take 1 tablet (500 mg total) by mouth every 8 (eight) hours for 18 days. [facility] ciprofloxac in HCl (CIPRO) 500 MG tablet 2022-07 00:00: 00 07-04 23:59 :00 No 500mg Q.5D Take 1 tablet (500 mg total) by mouth 2 (two) times daily for 18 days. [facility] cyclobenzap rine (FLEXERIL) 10 MG tablet 2022-07 00:00: 00 06-26 23:59 :00 No 10mg Q.[id number] 3D Take 1 tablet (10 mg total) by mouth 3 (three) times daily for 10 days. [facility] oxyCODONE (OXY-IR) 10 mg tablet 2022-07 00:00: 00 06-26 23:59 :00 No 10mg Take 1 tablet (10 mg total) by mouth every 8 (eight) hours as needed for up to 10 days. Max Daily Amount: 30 mg [facility] nystatin (MYCOSTATIN ) 100,000 unit/mL suspension 2022-07 00:00: 00 06-21 23:59 :00 No [id number] Q.25D Take 5 mLs (500,000 Units total) by mouth 4 (four) times daily for 5 days. [facility] dexAMETHaso ne (DECADRON) 2 MG tablet 2022-07 00:00: 00 06-08 23:59 :00 No 1mg Take 0.5 tablets (1 mg total) by mouth 2 (two) times daily with breakfast and dinner for 2 days. [facility] metoprolol succinate (TOPROL-XL) 25 MG 24 hr tablet 2022-07 17:44: 21 Yes 25mg QD Take 1 tablet (25 mg total) by mouth daily. [facility] varenicline (CHANTIX) 1 mg tablet 2022-07 17:44: 21 Yes 1mg Q.5D Take 1 tablet (1 mg total) by mouth 2 (two) times daily Give with meals and with a full glass of water.. [facility] albuterol HFA (VENTOLIN HFA) 90 mcg/actuati on inhaler 2022-07 17:44: 21 Yes 1{puff} Inhale 1 puff by mouth via inhaler every 6 (six) hours as needed for Wheezing. [facility] fluticasone -umeclidin- vilanter (Trelegy Ellipta) 200-62.5-25 mcg DsDv 2022-07 17:44: 21 Yes QD Inhale by mouth via inhaler daily. [facility] atorvastati n (LIPITOR) 20 MG tablet 2022-07 17:44: 21 Yes 20mg QD Take 1 tablet (20 mg total) by mouth daily. [facility] acetaminoph en-codeine (TYLENOL #3) 300-30 mg per tablet 2022-07 17:44: 21 Yes 1{tbl} Take 1 tablet by mouth every 4 (four) hours as needed for Pain. [facility] Naloxone (NARCAN) 4 MG/0.1ML nasal Liquid 2022-07 00:00: 00 Yes 4mg 0.1 mL (4 mg total) as needed. Cynthia gonzalez senna (SENOKOT) 8.6 mg tablet 2022-07 00:00: 00 06-18 23:59 :00 No 17.2mg Q.5D Take 2 tablets (17.2 mg total) by mouth 2 (two) times daily for 14 days. [facility] cyclobenzap rine (FLEXERIL) 10 MG tablet 2022-07 00:00: 00 06-16 00:00 :00 No 10mg Q.[id number] 3D Take 1 tablet (10 mg total) by mouth 3 (three) times daily for 10 days. [facility] methocarbam oL (ROBAXIN) 500 MG tablet 2022-07 00:00: 00 06-16 00:00 :00 No 500mg Q.25D Take 1 tablet (500 mg total) by mouth 4 (four) times daily for 10 days. [facility] lactulose (CHRONULAC) 20 gram/30 mL solution 2022-07 00:00: 00 06-11 23:59 :00 No 20g Q.[id number] 3D Take 30 mLs (20 g total) by mouth 3 (three) times daily for 7 days. [facility] ondansetron (ZOFRAN-ODT ) 4 MG disintegrat ing tablet 2022-07 00:00: 00 06-11 23:59 :00 No 4mg Take 1 tablet (4 mg total) by mouth every 6 (six) hours as needed for up to 7 days. [facility] metoprolol succinate (TOPROL-XL) 25 MG 24 hr tablet 2022-07 15:23: 22 Yes 25mg QD Take 1 tablet (25 mg total) by mouth daily. [facility] varenicline (CHANTIX) 1 mg tablet 2022-07 15:23: 22 Yes 1mg Q.5D Take 1 tablet (1 mg total) by mouth 2 (two) times daily Give with meals and with a full glass of water.. [facility] albuterol HFA (VENTOLIN HFA) 90 mcg/actuati on inhaler 2022-07 15:23: 22 Yes 1{puff} Inhale 1 puff by mouth via inhaler every 6 (six) hours as needed for Wheezing. [facility] fluticasone -umeclidin- vilanter (Trelegy Ellipta) 200-62.5-25 mcg DsDv 2022-07 15:23: 22 Yes QD Inhale by mouth via inhaler daily. [facility] atorvastati n (LIPITOR) 20 MG tablet 2022-07 15:23: 22 Yes 20mg QD Take 1 tablet (20 mg total) by mouth daily. [facility] acetaminoph en-codeine (TYLENOL #3) 300-30 mg per tablet 2022-07 15:23: 22 Yes 1{tbl} Take 1 tablet by mouth every 4 (four) hours as needed for Pain. [facility] acetaminoph en-codeine (TYLENOL #3) 300-30 mg per tablet 2022-07 09:42: 02 Yes 1{tbl} Take 1 tablet by mouth every 4 (four) hours as needed for Pain. Max Daily Amount: 6 tablets [facility] varenicline (CHANTIX) 1 mg tablet 2022-07 09:40: 04 Yes 1mg Q.5D Take 1 tablet (1 mg total) by mouth 2 (two) times daily Give with meals and with a full glass of water.. [facility] albuterol HFA (VENTOLIN HFA) 90 mcg/actuati on inhaler 2022-07 09:40: 04 Yes 1{puff} Inhale 1 puff by mouth via inhaler every 6 (six) hours as needed for Wheezing. [facility] fluticasone -umeclidin- vilanter (Trelegy Ellipta) 200-62.5-25 mcg DsDv 2022-07 09:40: 04 Yes QD Inhale by mouth via inhaler daily. [facility] atorvastati n (LIPITOR) 20 MG tablet 2022-07 09:40: 04 Yes 20mg QD Take 1 tablet (20 mg total) by mouth daily. [facility] metoprolol succinate (TOPROL-XL) 25 MG 24 hr tablet 2022-07 09:13: 28 Yes 25mg QD Take 1 tablet (25 mg total) by mouth daily. [facility] Atorvastati n Calcium 20 MG oral Tablet 2022-07 00:00: 00 Yes 20mg Take 1 tablet (20 mg total) by mouth daily. Cynthia gonzalez metoprolol succinate XL 25 mg 24 hr tablet 2022-07 00:00: 00 11-27 00:00 :00 No 25mg Take 1 [facility] N[facility] in 0.4 MG sublingual SL Tab [...] HCl [address] Particles - 00:00: 00 Yes 30mg Take 1 capsule (30 mg total) by mouth daily. Cynthia gonzalez Gabapentin 300 MG oral Capsule 04-03 00:00: 00 Yes Cynthia gonzalez furosemide (LASIX) 20 MG tablet 04-03 00:00: 00 09-07 00:00 :00 No 20mg QD Take 1 tablet (20 mg total) by mouth daily. [facility] aspirin 81 MG EC tablet 04-03 00:00: 00 07-02 23:59 :00 No 81mg QD Take 1 tablet (81 mg total) by mouth daily for 90 days. [facility] divalproex (DEPAKOTE) 500 MG EC tablet 04-03 00:00: 00 07-02 23:59 :00 No 500mg Q.5D Take 1 tablet (500 mg total) by mouth 2 (two) times daily for 90 days. [facility] lisinopriL (PRINIVIL,Z ESTRIL) 5 MG tablet -15 00:00: 00 05-28 00:00 :00 No 5mg QD Take 1 tablet (5 mg total) by mouth daily. [facility] clonazePAM (KlonoPIN) 0.5 MG tablet 04-03 00:00: 00 05-03 23:59 :00 No .25mg Take 0.5 tablets (0.25 mg total) by mouth 2 (two) times daily as needed for Anxiety for up to 30 days. Max Daily Amount: 0.5 mg [facility] HYDROcodone -acetaminop hen (NORCO 10-325) 10-325 mg per tablet 04-03 00:00: 00 04-13 23:59 :00 No 1{tbl} Take 1 tablet by mouth every 6 (six) hours as needed for up to 10 days. Max Daily Amount: 4 tablets [facility] methocarbam oL (ROBAXIN) 500 MG tablet 04-03 00:00: 00 04-13 23:59 :00 No 500mg Q.25D Take 1 tablet (500 mg total) by mouth 4 (four) times daily for 10 days. [facility] gabapentin (NEURONTIN) 300 MG capsule 04-02 00:00: 00 04-03 00:00 :00 No 300mg Q.[id number] 3D Take 1 capsule (300 mg total) by mouth 3 (three) times daily for 90 days. [facility] divalproex (DEPAKOTE) 500 MG EC tablet 04-02 00:00: 00 04-03 00:00 :00 No 500mg Q.5D Take 1 tablet (500 mg total) by mouth 2 (two) times daily for 90 days. [facility] clonazePAM (KlonoPIN) 0.5 MG tablet 04-02 00:00: 00 04-03 00:00 :00 No .25mg Take 0.5 tablets (0.25 mg total) by mouth 2 (two) times daily as needed for Anxiety for up to 30 days. Max Daily Amount: 0.5 mg [facility] HYDROcodone -acetaminop hen (NORCO 10-325) 10-325 mg per tablet 04-02 00:00: 00 04-03 00:00 :00 No 1{tbl} Take 1 tablet by mouth every 6 (six) hours as needed for up to 10 days. Max Daily Amount: 4 tablets [facility] methocarbam oL (ROBAXIN) 500 MG tablet 914 00:00: 00 04-03 00:00 :00 No 500mg Q.25D Take 1 tablet (500 mg total) by mouth 4 (four) times daily for 10 days. [facility] Metronidazo le 500 MG oral Tablet 01-17 00:00: 00 Yes Cynthia gonzalez Clonazepam 1 MG oral Tablet 01-16 00:00: 00 09-29 00:00 :00 No 1mg 1 tablet (1 mg total). Cynthia gonzalez Lisinopril 5 MG oral Tablet 01-15 00:00: 00 Yes Cynthia gonzalez Metoprolol Tartrate (LOPRESSOR) 25 MG oral Tablet 01-15 00:00: 00 Yes 25mg 1 tablet (25 mg total). Cynthia gonzalez divalproex 500 mg delayed release tablet 01-15 00:00: 00 11-27 00:00 :00 No 500mg Take 1 tablet by mouth in the morning and 1 tablet in the evening. [facility] Divalproex Sodium 500 MG oral Tablet Delayed Response 01-14 00:00: 00 Yes 250mg 250 mg. Cynthia gonzalez lacosamide (VIMPAT) 200 mg in NaCl 0.9% (NS) 50 mL piggyback 12-11 19:45: 00 12-11 19:57 :00 No 200mg 200 mg, IV Piggyback, ONCE, 1 dose, On Arpita 12/11/22 at 1445, Administer over 30 Minutes, 50 mL
Facu lty member approving Restricted medication : Alfonso ALVARADO [facility] ketorolac (TORADOL) injection 15 mg 12-11 18:15: 00 12-11 17:25 :00 No 15mg 15 mg, Slow IV Push, ONCE, 1 dose, On Arpita 12/11/22 at 1315, MICHAEL [facility] iopamidol (ISOVUE 370-500 mL) injection 80 mL 12-11 16:30: 00 12-11 16:27 :00 No [id number] 80mL 80 mL, Intravenou s, ONCE, 1 dose, On Arpita 12/11/22 at 1130, Routine [facility] nitroglycer in (NITROL) 2 % ointment 0.5 Inch 12-11 15:30: 00 12-11 14:31 :00 No .5[in_u s] 0.5 Inch, Transderma l (Apply To Skin), ONCE, 1 dose, [facility] 12/11/22 [facility] 1030[facility] 324 mg 12-11 15:30: 00 12-11 14:30 :00 No 324mg 324 mg, Oral, ONCE, 1 dose, On Arpita 12/11/22 at 1030, Routine [facility] ondansetron (ZOFRAN (PF)) injection 4 mg 12-11 15:30: 00 12-11 14:29 :00 No 4mg 4 mg, Slow IV Push, ONCE, 1 dose, On Arpita 12/11/22 at 1030, [facility] LOR[facility]epam (ATIVAN) injection 1 mg 12-11 15:00: 00 12-11 14:57 :00 No 1mg 1 mg, Slow IV Push, ONCE, 1 dose, On Arpita 12/11/22 at 1000, STAT [facility] Lacosamide (VIMPAT) 100 mg tablet 12-11 00:00: 00 Yes [id number] 100mg Take 1 tablet by mouth in the morning and 1 tablet in the evening. [facility] acetaminoph en-codeine (TYLENOL #3) 300-30 mg tablet 1 tablet 11-18 05:30: 00 11-18 05:30 :00 No 1{tbl} 1 tablet, Oral, ONCE, 1 dose, On Thu11/18/22 at 0030, [facility] methocarbam oL (ROBAXIN) tablet 1,000 mg 11-18 05:30: 00 11-18 05:30 :00 No 1000mg 1,000 mg, Oral, ONCE, 1 dose, On Thu11/18/22 at 0030, [facility] ondansetron (ZOFRAN (PF)) injection 4 mg 11-18 04:45: 00 11-18 03:38 :00 No 4mg 4 mg, Slow IV Push, ONCE, 1 dose, On Thu11/17/22 at 2345, [facility] morpHINE (4 mg/mL) injection 4 mg 11-18 03:45: 00 11-18 03:38 :00 No 4mg 4 mg, Slow IV Push, ONCE, 1 dose, On Thu11/17/22 at 2245, Routine [facility] methocarbam oL (ROBAXIN) injection 1,000 mg 11-18 00:30: 00 11-17 23:47 :00 No 1000mg 1,000 mg, Intravenou s, ONCE, 1 dose, On Thu11/17/22 at 1930, [facility] methocarbam oL 500 mg tablet 11-18 00:00: 00 12-02 00:00 :00 No [id number] 1000mg Take 2 tablets by mouth 4 (four) times daily as needed for Pain (scale 7-10). [facility] acetaminoph en-codeine 300-60 mg tablet 11-18 00:00: 00 11-26 04:59 :00 No [id number] 1{tbl} Take 1 tablet by mouth every 6 (six) hours as needed for Pain for up to 7 days. Indication s: acute pain [facility] ketorolac (TORADOL) injection 15 mg 11-18 00:00: 00 11-17 23:08 :00 No 15mg 15 mg, Slow IV Push, ONCE, 1 dose, On Thu11/17/22 at 1900, [facility] ([facility]/mL) injection 4 mg 11-17 23:45: 00 11-17 23:49 :00 No 4mg 4 mg, Slow IV Push, ONCE, 1 dose, On Thu11/17/22 at 1845, Routine [facility] ondansetron (ZOFRAN (PF)) injection 4 mg 11-17 23:15: 00 11-17 23:06 :00 No 4mg 4 mg, Slow IV Push, ONCE, 1 dose, On Thu11/17/22 at 1815, MICHAEL [facility] lisinopriL (PRINIVIL,Z ESTRIL) tablet 10 mg 08-02 15:00: 00 Yes 10mg 10 mg, Oral, DAILY, First dose on Thu08/02/22 at 0900, Until Discontinu ed, Routine [facility] predniSONE (DELTASONE) tablet 40 mg 08-02 15:00: 00 08-07 14:59 :00 No 40mg 40 mg, Oral, DAILY, 5 doses, First dose on Thu08/02/22 at 0900, Last dose on Thu08/06/22 at 0900, Routine [facility] morpHINE (2 mg/mL) injection 2 mg 08-02 03:29: 15 Yes 2mg 2 mg, Slow IV Push, Q4HPRN, Starting on Thu08/01/22 at 2129, Until Discontinu ed, Routine, Pain (scale 7-10) [facility] levETIRAcet am (KEPPRA) in NACL (ISO-OS) 1,000 mg/100 mL RTU 08-02 00:00: 00 Yes 1000mg 1,000 mg, IV Piggyback, Q12H, First dose on Thu08/01/22 at 1800, Until Discontinu ed, Administer over 15 Minutes, 100 mL [facility] MULTIVITAMI N ORAL 08-01 23:49: 34 Yes 1{tbl} Take 1 Tab by mouth daily. [facility] omega-3 fatty acids-vitam in E (FISH OIL) 1,000 mg capsule 08-01 23:49: 34 Yes 1g Take 1 g by mouth daily. [facility] loratadine (CLARITIN LIQUI-GEL) 10 mg capsule 08-01 23:49: 34 Yes Take by mouth daily. [facility] ondansetron 4 mg tablet 08-01 23:49: 34 Yes 4mg Take 1 tablet by mouth every 8 (eight) hours as needed for Nausea and Vomiting (N/V). [facility] omega-3 fatty acids-vitam in E (FISH OIL) 1,000 mg capsule 08-01 23:49: 34 Yes 1g Take 1 g by mouth daily. [facility] pantoprazol e 40 mg EC tablet 08-01 23:49: 34 11-27 00:00 :00 No 40mg Take 40 mg by mouth daily. [facility] benzonatate (TESSALON PERLES) capsule 100 mg 08-01 20:00: 00 Yes 100mg 100 mg, Oral, Q8H, First dose on Thu08/01/22 at 1400, Until Discontinu ed, Routine [facility] ipratropium -albuteroL (DUONEB) 0.5 mg-3 mg(2.5 mg base)/3 mL nebulizer solution 3 mL 08-01 18:00: 00 Yes 3mL 3 mL, Inhalation , QID, First dose on Thu08/01/22 at 1200, Until Discontinu ed, Routine [facility] ipratropium -albuteroL (DUONEB) 0.5 mg-3 mg(2.5 mg base)/3 mL nebulizer solution 3 mL 08-01 17:07: 07 Yes 3mL 3 mL, Inhalation , QIDPRN, Starting on Thu08/01/22 at 1107, Until Discontinu ed, MICHAEL, Wheezing, Shortness of Breath [facility] sulfur hexafluorid e microsphr (LUMASON) injection 5 mL 08-01 17:00: 00 08-01 17:00 :00 No [id number] 5mL 5 mL, Intravenou s, ONCE, 1 dose, On Thu08/01/22 at 1100, Routine
pricing/signage team member approving Restricted medication : KYLEE MONTEZ [facility] pantoprazol e (PROTONIX) EC tablet 40 mg 08-01 15:00: 00 Yes 40mg 40 mg, Oral, DAILY, First dose on Thu08/01/22 at 0900, Until Discontinu ed, Routine [facility] aspirin chewable tablet 81 mg 08-01 15:00: 00 Yes 81mg 81 mg, Oral, DAILY, First dose on Thu08/01/22 at 0900, Until Discontinu ed, Routine [facility] amLODIPine (NORVASC) tablet 10 mg 08-01 15:00: 00 Yes 10mg 10 mg, Oral, DAILY, First dose on Thu08/01/22 at 0900, Until Discontinu ed, Routine [facility] levETIRAcet am (KEPPRA) tablet 500 mg 08-01 14:00: 00 08-01 23:56 :35 No 500mg 500 mg, Oral, BID, First dose on Thu08/01/22 at 0800, Until Discontinu ed, Routine [facility] carvediloL (COREG) tablet 6.25 mg 08-01 14:00: 00 08-01 17:29 :13 No 6.25mg 6.25 mg, Oral, BID MEALS, First dose on Thu08/01/22 at 0800, Until Discontinu ed, Routine [facility] levETIRAcet am (KEPPRA) in NACL (ISO-OS) 1,000 mg/100 mL RTU 08-01 06:45: 00 08-01 06:32 :00 No 1000mg 1,000 mg, IV Piggyback, ONCE, 1 dose, On Thu08/01/22 at 0045, Administer over 15 Minutes, 100 mL [facility] LORazepam (ATIVAN) injection 1 mg 08-01 05:52: 54 Yes 1mg 1 mg, Slow IV Push, Q4HPRN, Starting on Thu07/31/22 at 2352, Until Discontinu ed, Routine, Seizures, Agitation, Anxiety, ETOH / Cocaine Withdrawl [facility] foLIC acid (FOLATE) tablet 1 mg 08-01 05:45: 00 Yes 1mg 1 mg, Oral, DAILY, First dose on Thu07/31/22 at 2345, Until Discontinu ed, Routine [facility] thiamine (VITAMIN B1) tablet 100 mg 08-01 05:45: 00 Yes 100mg 100 mg, Oral, DAILY, First dose on Thu07/31/22 at 2345, Until Discontinu ed, Routine [facility] LORazepam (ATIVAN) injection 0.5 mg 08-01 05:30: 00 08-01 05:29 :00 No .5mg 0.5 mg, Slow IV Push, ONCE, 1 dose, On Thu07/31/22 at 2330, MICHAEL [facility] atorvastati n (LIPITOR) tablet 40 mg 08-01 03:00: 00 Yes 40mg 40 mg, Oral, QHS, First dose on Thu07/31/22 at 2100, Until Discontinu ed, Routine [facility] diphenhydrA MINE (BENADRYL) tablet 25 mg 08-01 00:32: 02 Yes 25mg 25 mg, Oral, Q6HPRN, Starting on Thu07/31/22 at 1832, Until Discontinu ed, Routine, Itching [facility] enoxaparin (LOVENOX) injection 40 mg 07-31 23:00: 00 Yes 40mg 40 mg, Subcutaneo us, DAILY, First dose on Thu07/31/22 at 1700, Until Discontinu ed, Routine [facility] morpHINE (2 mg/mL) injection 2 mg 07-31 23:00: 00 07-31 22:29 :00 No 2mg 2 mg, Slow IV Push, ONCE, 1 dose, On Thu07/31/22 at 1700, Routine [facility] HYDROcodone -acetaminop hen (NORCO) 10-325 mg tablet 1 tablet 07-31 22:01: 36 Yes 1{tbl} 1 tablet, Oral, Q6HPRN, Starting on Thu07/31/22 at 1601, Until Discontinu ed, Routine, Pain (scale 7-10) [facility] HYDROcodone -acetaminop hen (NORCO 5) 5-325 mg tablet 1 tablet 07-31 22:01: 34 08-02 22:00 :34 No 1{tbl} 1 tablet, Oral, Q6HPRN, Starting on Arpita 07/31/22 at 1601, Until 08/02/22 at 1600, Routine, Pain (scale 4-6) [facility] acetaminoph en (TYLENOL) tablet 650 mg 07-31 22:01: 33 Yes 650mg 650 mg, Oral, Q6HPRN, Starting on Thu07/31/22 at 1601, Until Discontinu ed, Routine, Pain (scale 1-3) [facility] ketorolac (TORADOL) injection 15 mg 07-31 21:45: 00 07-31 20:50 :00 No 15mg 15 mg, Slow IV Push, ONCE, 1 dose, On Thu07/31/22 at 1545, Routine [facility] ondansetron (ZOFRAN (PF)) injection 4 mg 07-31 21:00: 00 07-31 20:47 :00 No 4mg 4 mg, Slow IV Push, ONCE, 1 dose, On Thu07/31/22 at 1500, MICHAEL [facility] furosemide (LASIX) injection 40 mg 07-31 20:15: 00 Yes 40mg 40 mg, Slow IV Push, Q12H, First dose on Thu07/31/22 at 1415, Until Discontinu ed, Routine [facility] methylpredn isolone sod succ (SOLU-MEDRO L) injection 125 mg 07-31 19:30: 00 07-31 18:54 :00 No 125mg 125 mg, Slow IV Push, ONCE NOW, 1 dose, On Arpita 07/31/22 at 1330, MICHAEL [facility] ipratropium -albuteroL (DUONEB) 0.5 mg-3 mg(2.5 mg base)/3 mL nebulizer solution 3 mL 07-31 19:30: 00 07-31 18:48 :00 No 3mL 3 mL, Inhalation , ONCE, 1 dose, On Arpita 07/31/22 at 1330, MICHAEL [facility] pantoprazol e 40 mg EC tablet 07-31 17:15: 40 Yes 40mg Take 40 mg by mouth daily. [facility] MULTIVITAMI N ORAL 07-31 15:50: 57 Yes 1{tbl} Take 1 Tab by mouth daily. [facility] loratadine (CLARITIN LIQUI-GEL) 10 mg capsule 07-31 15:50: 57 Yes Take by mouth daily. [facility] ondansetron 4 mg tablet 07-31 15:50: 57 Yes 4mg Take 4 mg by mouth every 8 (eight) hours as needed. [facility] omega-3 fatty acids-vitam in E (FISH OIL) 1,000 mg capsule 07-31 15:21: 27 Yes 1g Take 1 g by mouth daily. [facility] TAKE ONE (1) TABLET(S) BY MOUTH THREE TIMES A DAY NEEDED. 07-28 00:00: 00 No Methylpredn isolone 4 mg tablet 2021-07 00:00: 00 05-12 04:59 :00 No [id number] 4mg Take 1 tablet through enteral tube in the morning for 1 dose. [facility] Methylpredn isolone 4 mg tablet 2021-07 00:00: 00 05-11 04:59 :00 No [id number] 4mg Take 1 tablet through enteral tube every 12 (twelve) hours for 2 doses. [facility] MULTIVITAMI N ORAL 2021-07 14:44: 48 Yes 1{tbl} Take 1 Tab by mouth daily. [facility] omega-3 fatty acids-vitam in E (FISH OIL) 1,000 mg capsule 2021-07 14:44: 48 Yes 1g Take 1 g by mouth daily. [facility] loratadine (CLARITIN LIQUI-GEL) 10 mg capsule 2021-07 14:44: 48 Yes Take by mouth daily. [facility] ondansetron (ZOFRAN) 4 mg tablet 2021-07 14:44: 48 Yes 4mg Take 4 mg by mouth every 8 (eight) hours as needed. [facility] pantoprazol e (PROTONIX) 40 mg EC tablet 2021-07 14:44: 48 Yes 40mg Take 40 mg by mouth daily. [facility] DULoxetine 30 mg capsule 2021-07 14:00: 00 Yes 30mg Take 1 capsule by mouth in the morning. [facility] divalproex (DEPAKOTE) EC tablet 1,000 mg 2021-07 13:00: 00 Yes 1000mg 1,000 mg, Oral, BID, First dose (after last modificati on) on Thu05/08/22 at 0800, Until Discontinu ed, Routine [facility] Methylpredn isolone (MEDROL) tablet 4 mg 2021-07 08:50: 10 05-09 08:59 :00 No 4mg 4 mg, Oral, Q8H TAPER, 3 doses, First dose on Thu05/08/22 at 0400, Last dose on Thu05/08/22 at 2000, Routine [facility] acetaminoph en-codeine (TYLENOL #3) 300-30 mg tablet 1 tablet 2021-07 04:07: 01 Yes 1{tbl} 1 tablet, Oral, Q4HPRN, Starting on Thu05/07/22 at 2307, Until Discontinu ed, Routine, Pain (scale 7-10) [facility] morpHINE (2 mg/mL) injection 2 mg 2021-07 03:03: 15 Yes 2mg 2 mg, Slow IV Push, Q4HPRN, Starting on Thu05/07/22 at 2203, Until Discontinu ed, Routine, Pain (scale 7-10) [facility] LORazepam (ATIVAN) tablet 1 mg 2021-07 00:02: 18 Yes 1mg 1 mg, Oral, Q6HPRN, Starting on Thu05/07/22 at 1902, Until Discontinu ed, Routine, Anxiety [facility] cyclobenzap rine 5 mg tablet 2021-07 00:00: 00 Yes [id number] 5mg Take 1 tablet by mouth in the morning and 1 tablet at noon and 1 tablet in the evening. [facility] DULoxetine (CYMBALTA) 30 mg capsule 2021-07 00:00: 00 06-08 05:59 :00 No [id number] 60mg Take 2 capsules by mouth in the morning for 30 days. [facility] divalproex (DEPAKOTE) 250 mg EC tablet 2021-07 00:00: 00 06-08 05:59 :00 No [id number] 750mg Take 3 tablets by mouth every 8 (eight) hours for 30 days. [facility] LORazepam 1 mg tablet 2021-07 00:00: 00 05-19 04:59 :00 No [id number] 1mg Take 1 tablet by mouth every 6 (six) hours as needed for Anxiety or Agitation for up to 10 days. [facility] acetaminoph en-codeine 300-30 mg tablet 2021-07 00:00: 00 05-16 04:59 :00 No [id number] 1{tbl} Take 1 tablet by mouth every 4 (four) hours as needed for Pain (scale 7-10) for up to 7 days. Indication s: acute pain [facility] Methylpredn isolone 4 mg tablet 2021-07 00:00: 00 05-10 04:59 :00 No [id number] 4mg Take 1 tablet by mouth every 8 (eight) hours for 3 doses. [facility] divalproex (DEPAKOTE) EC tablet 750 mg 2022-1 0-19 01:00: 00 05-08 09:40 :23 No 750mg 750 mg, Oral, BID, First dose on Thu05/06/22 at 2000, Until Discontinu ed, Routine [facility] levETIRAcet am (KEPPRA) tablet 1,500 mg 2021-07 13:00: 00 05-06 18:38 :22 No 1500mg 1,500 mg, Oral, BID, First dose (after last modificati on) on Thu05/06/22 at 0800, Until Discontinu ed, Routine [facility] levETIRAcet am (KEPPRA) in NACL (ISO-OS) 1,000 mg/100 mL RTU 2021-07 05:00: 00 05-06 05:46 :00 No 1000mg 1,000 mg, IV Piggyback, ONCE, 1 dose, On Thu05/06/22 at 0000, Administer over 15 Minutes, 100 mL [facility] at [facility] methocarbam oL (ROBAXIN) tablet 500 mg 2021-07 02:15: 00 05-06 23:21 :42 No 500mg 500 mg, Oral, QID, First dose on Thu05/05/22 at 2115, Until Discontinu ed, Routine [facility] LORazepam (ATIVAN) tablet 2 mg 2021-07 01:30: 00 05-06 01:03 :00 No 2mg 2 mg, Oral, ONCE, 1 dose, On Thu05/05/22 at 2030, Routine [facility] levETIRAcet am (KEPPRA) tablet 1,000 mg 2021-07 01:00: 00 05-06 04:48 :06 No 1000mg 1,000 mg, Oral, BID, First dose on Thu05/05/22 at 2000, Until Discontinu ed, Routine [facility] enoxaparin (LOVENOX) injection 40 mg 2021-07 00:15: 00 Yes 40mg 40 mg, Subcutaneo us, Q24H, First dose on Thu05/05/22 at 1915, Until Discontinu ed, Routine [facility] levETIRAcet am (KEPPRA) in NACL (ISO-OS) 1,000 mg/100 mL RTU 2021-07 19:45: 00 05-05 20:05 :00 No 1000mg 1,000 mg, IV Piggyback, ONCE, 1 dose, On Thu05/05/22 at 1445, Administer over 15 Minutes, 100 mL [facility] clonazePAM (KLONOPIN) tablet 0.5 mg 2021-07 19:30: 00 Yes .5mg 0.5 mg, Oral, BID, First dose on Thu05/05/22 at 1430, Until Discontinu ed, Routine [facility] ibuprofen (IBU) tablet 600 mg 2021-07 19:30: 00 Yes 600mg 600 mg, Oral, TID MEALS, First dose on Thu05/05/22 at 1430, Until Discontinu ed, Routine [facility] gabapentin (NEURONTIN) capsule 300 mg 2021-07 19:30: 00 Yes 300mg 300 mg, Oral, TID, First dose on Thu05/05/22 at 1430, Until Discontinu ed, Routine [facility] cyclobenzap rine (FLEXERIL) tablet 5 mg 2021-07 19:30: 00 Yes 5mg 5 mg, Oral, TID, First dose on Thu05/05/22 at 1430, Until Discontinu ed, Routine [facility] acetaminoph en (TYLENOL) tablet 1,000 mg 2021-07 19:30: 00 Yes 1000mg 1,000 mg, Oral, Q8H, First dose on Thu05/05/22 at 1430, Until Discontinu ed, Routine [facility] pantoprazol e (PROTONIX) EC tablet 40 mg 2021-07 14:00: 00 Yes 40mg 40 mg, Oral, DAILY, First dose on Thu05/05/22 at 0900, Until Discontinu ed, Routine [facility] docusate (COLACE) capsule 100 mg 2021-07 14:00: 00 Yes 100mg 100 mg, Oral, DAILY, First dose on Thu05/05/22 at 0900, Until Discontinu ed, Routine [facility] HYDROcodone -acetaminop hen (NORCO) 10-325 mg tablet 1 tablet 2021-07 10:32: 02 05-05 19:18 :52 No 1{tbl} 1 tablet, Oral, Q6HPRN, Starting on Thu05/05/22 at 0532, Until Thu05/05/22 at 1418, Routine, Pain (scale 7-10) [facility] ondansetron (ZOFRAN (PF)) injection 4 mg 2021-07 06:49: 57 Yes 4mg 4 mg, Slow IV Push, Q6HPRN, Starting on Thu05/05/22 at 0149, Until Discontinu ed, Routine, Nausea and Vomiting (N/V) [facility] HYDROcodone -acetaminop hen (NORCO 5) 5-325 mg tablet 1 tablet 2021-07 06:49: 41 05-05 10:32 :14 No 1{tbl} 1 tablet, Oral, Q6HPRN, Starting on Thu05/05/22 at 0149, Until Thu05/05/22 at 0532, Routine, Pain (scale 7-10) [facility] acetaminoph en (TYLENOL) tablet 325 mg 2021-07 06:49: 39 05-05 19:18 :52 No 325mg 325 mg, Oral, Q4HPRN, Starting on Thu05/05/22 at 0149, Until Thu05/05/22 at 1418, Routine, Pain (scale 4-6) [facility] ondansetron (ZOFRAN) tablet 4 mg 2021-07 04:00: 00 05-05 03:26 :00 No 4mg 4 mg, Oral, ONCE, 1 dose, On Thu05/04/22 at 2300, Routine [facility] morpHINE (2 mg/mL) injection 2 mg 2021-07 04:00: 00 05-05 03:26 :00 No 2mg 2 mg, Slow IV Push, ONCE, 1 dose, On 05/04/22 at 2300, Routine [facility] aspirin 81 mg chewable tablet 04-16 00:00: 00 Yes [id number] 81mg Take 1 tablet by mouth in the morning. [facility] MULTIVITAMI N ORAL 04-15 17:39: 14 Yes 1{tbl} Take 1 Tab by mouth daily. [facility] omega-3 fatty acids-vitam in E (FISH OIL) 1,000 mg capsule 04-15 17:39: 14 Yes 1g Take 1 g by mouth daily. [facility] loratadine (CLARITIN LIQUI-GEL) 10 mg capsule 04-15 17:39: 14 Yes Take by mouth daily. [facility] ondansetron (ZOFRAN) 4 mg tablet 04-15 17:39: 14 Yes 4mg Take 4 mg by mouth every 8 (eight) hours as needed. [facility] pantoprazol e (PROTONIX) 40 mg EC tablet 04-15 17:39: 14 Yes 40mg Take 40 mg by mouth daily. [facility] lisinopril- hydrochloro thiazide 20-12.5 mg per tablet 04-15 15:58: 35 04-15 00:00 :00 No 1{tbl} Take 1 tablet by mouth daily. [facility] levetiracet am (KEPPRA ORAL) 04-15 15:58: 35 04-15 00:00 :00 No Take by mouth. [facility] acetaminoph en-codeine (TYLENOL #4) 300-60 mg tablet 1 tablet 04-15 05:39: 23 04-15 14:39 :42 No 1{tbl} 1 tablet, Oral, Q6HPRN, Starting on Thu04/15/22 at 0039, Until Thu04/15/22 at 0939, Routine, Pain (scale 4-6), Pain (scale 1-3) [facility] LORazepam (ATIVAN) tablet 2 mg 04-15 03:30: 00 04-15 10:27 :00 No 2mg 2 mg, Oral, ONCE, 1 dose, On Thu04/14/22 at 2230, Routine [facility] levETIRAcet am (KEPPRA) tablet 1,000 mg 04-15 02:45: 00 Yes 1000mg 1,000 mg, Oral, BID, First dose (after last modificati on) on Thu04/14/22 at 2145, Until Discontinu ed, Routine [facility] ketorolac (TORADOL) injection 15 mg 04-15 02:13: 00 04-15 02:22 :00 No 15mg 15 mg, Slow IV Push, ONCE, 1 dose, On Thu04/14/22 at 2115, Routine [facility] levETIRAcet am 1,000 mg tablet 04-15 00:00: 00 Yes [id number] 1000mg Take 1 tablet by mouth in the morning and 1 tablet in the evening. [facility] atorvastati n 40 mg tablet 04-15 00:00: 00 01-09 00:00 :00 No [id number] 40mg Take 1 tablet by mouth at bedtime. [facility] lidocaine 5 % (700 mg/patch) patch 04-15 00:00: 00 04-23 04:59 :00 No [id number] 1{patch } Apply 1 Patch to area(s) in the morning for 7 days. [facility] HYDROcodone -acetaminop hen 5-325 mg tablet 04-15 00:00: 00 04-21 04:59 :00 No [id number] 1{tbl} Take 1 tablet by mouth every 6 (six) hours as needed for Pain (scale 7-10) for up to 5 days. Indication s: acute pain [facility] lidocaine (LIDODERM) 5 % (700 mg/patch) patch 1 Patch 04-14 21:45: 29 Yes 1{patch } 1 Patch, Topical, Administer over 12 Hours, [id number], Starting on Thu04/14/22 at 1645, Until Discontinu ed, Routine, Localized pain [facility] aspirin chewable tablet 81 mg 04-14 21:30: 00 Yes 81mg 81 mg, Oral, DAILY, First dose on Thu04/14/22 at 1630, Until Discontinu ed, Routine [facility] acetaminoph en (TYLENOL) tablet 650 mg 04-14 21:29: 25 Yes 650mg 650 mg, Oral, Q6HPRN, Starting on Thu04/14/22 at 1629, Until Discontinu ed, Routine, Pain (scale 1-3), Temp > 38.5 C, Temp > 37.5 C [facility] HYDROcodone -acetaminop hen (NORCO) 10-325 mg tablet 1 tablet 04-14 21:29: 02 04-15 05:39 :41 No 1{tbl} 1 tablet, Oral, Q6HPRN, Starting on Thu04/14/22 at 1629, Until Thu04/15/22 at 0039, Routine, Pain (scale 7-10), Pain (scale 4-6) [facility] sulfur hexafluorid e microsphr (LUMASON) injection 5 mL 04-14 16:45: 00 04-14 16:45 :00 No [id number] 5mL 5 mL, Intravenou s, ONCE, 1 dose, On Thu04/14/22 at 1145, Routine
pricing/signage team member approving Restricted medication : MADELINE PIERRE [facility] clopidogreL (PLAVIX) 75 mg tablet 75 mg 04-14 14:00: 00 Yes 75mg 75 mg, Oral, DAILY, First dose on Thu04/14/22 at 0900, Until Discontinu ed, Routine [facility] pantoprazol e (PROTONIX) EC tablet 40 mg 04-14 14:00: 00 Yes 40mg 40 mg, Oral, DAILY, First dose on Thu04/14/22 at 0900, Until Discontinu ed, Routine [facility] atorvastati n (LIPITOR) tablet 40 mg 04-14 02:00: 00 Yes 40mg 40 mg, Oral, QHS, First dose on 04/13/22 at 2100, Until Discontinu ed, Routine [facility] LORazepam (ATIVAN) tablet 1 mg 04-14 01:30: 00 04-14 01:45 :00 No 1mg 1 mg, Oral, ONCE, 1 dose, On Thu04/13/22 at 2030, Routine [facility] methocarbam oL (ROBAXIN) tablet 500 mg 04-14 01:00: 00 Yes 500mg 500 mg, Oral, QID, First dose on 04/13/22 at 2000, Until Discontinu ed, Routine [facility] heparin (porcine) injection 5,000 Units 04-14 01:00: 00 Yes 5000U 5,000 Units, Subcutaneo us, Q12H, First dose on 04/13/22 at 2000, Until Discontinu ed, Routine [facility] acetaminoph en (TYLENOL) tablet 650 mg 04-14 00:23: 25 04-14 21:29 :42 No 650mg 650 mg, Oral, Q6HPRN, Starting on 04/13/22 at 1923, Until 04/14/22 at 1629, Routine, Pain (scale 1-3), Pain (scale 4-6), Temp > 38.5 C, Temp > 37.5 C [facility] lidocaine (LIDODERM) 5 % (700 mg/patch) patch 1 Patch 04-14 00:22: 00 04-14 13:51 :00 No 1{patch } 1 Patch, Topical, Administer over 12 Hours, ONCE, 1 dose, On Thu04/13/22 at 1930, Routine [facility] FENTanyl PF (SUBLIMAZE (PF)) injection 50 mcg 04-13 20:30: 00 04-13 19:22 :00 No 50ug 50 mcg, Slow IV Push, ONCE, 1 dose, On Thu04/13/22 at 1530, Routine [facility] aspirin chewable tablet 650 mg 04-13 20:15: 00 04-13 20:15 :00 No 650mg 650 mg, Oral, ONCE, 1 dose, On 04/13/22 at 1515, Routine [facility] clopidogreL (PLAVIX) 300 mg tablet 300 mg 04-13 20:00: 00 04-13 19:15 :00 No 300mg 300 mg, Oral, ONCE, 1 dose, On 04/13/22 at 1500, Routine [facility] ondansetron (ZOFRAN (PF)) injection 4 mg 04-13 19:30: 00 04-13 19:22 :00 No 4mg 4 mg, Slow IV Push, ONCE, 1 dose, On 04/13/22 at 1430, [facility] iopamidol (ISOVUE 370-500 mL) injection 100 mL 04-13 18:31: 00 04-13 18:32 :00 No [id number] 100mL 100 mL, Intravenou s, ONCE, 1 dose, On 04/13/22 at 1345, Routine [facility] NaCl 0.9% (NS) injection 5 mL 04-13 18:14: 11 Yes 5mL 5 mL, Slow IV Push, PRN - SEE INSTRUCTIO NS, Starting on 04/13/22 at 1314, Until Discontinu ed, 10 mL [facility] aspirin chewable tablet 324 mg 11-24 14:00: 00 Yes 324mg 324 mg, Oral, DAILY, First dose on 11/24/21 at 0900, Until Discontinu ed, Routine [facility] metoclopram iker HCl (REGLAN) injection 10 mg 11-23 22:30: 00 11-23 21:24 :00 No 10mg 10 mg, Slow IV Push, ONCE, 1 dose, On 11/23/21 at 1730, [facility] acetaminoph en (TYLENOL) tablet 1,000 mg 11-23 22:15: 00 11-23 21:09 :00 No 1000mg 1,000 mg, Oral, ONCE, 1 dose, On 11/23/21 at 1715, [facility] ondansetron (ZOFRAN (PF)) injection 4 mg 11-23 21:45: 00 11-23 20:30 :00 No 4mg 4 mg, Slow IV Push, ONCE, 1 dose, On 11/23/21 at 1645, [facility] NaCl 0.9% (NS) bolus infusion 1,000 mL 11-23 21:30: 00 11-23 21:56 :00 No 1000mL at 999 mL/hr, 1,000 mL, IV Infusion, ONCE, 1 dose, On 11/23/21 at 1630, [facility] LORazepam (ATIVAN) injection 4 mg 11-23 21:30: 00 11-23 20:23 :00 No 4mg 4 mg, Slow IV Push, ONCE, 1 dose, On 11/23/21 at 1630, STAT [facility] levETIRAcet am (KEPPRA) in NACL (ISO-OS) 1,500 mg/100 mL RTU 11-23 21:30: 00 11-23 20:47 :00 No 1500mg 1,500 mg, IV Piggyback, ONCE, 1 dose, On 11/23/21 at 1630, Administer over 15 Minutes, 100 mL [facility] Dose Unknown 4-08 00:00: 00 No Dose Unknown 4-08 00:00: 00 No Prozac 20 mg capsule 3-21 00:00: 00 No 1mg Prozac 20 mg capsule -21 00:00: 00 No 1mg Dose Unknown 0 3-16 00:00: 00 No Dose Unknown 0 3-16 00:00: 00 No Dose Unknown 0 3-15 00:00: 00 No Dose Unknown 0 3-15 00:00: 00 No Dose Unknown 0 3-14 00:00: 00 No Dose Unknown 0 3-14 00:00: 00 No hydroxyzine HCl 50 mg tablet 09-25 00:00: 00 No 1mg Prozac 20 mg capsule 3 00:00: 00 No 1mg hydroxyzine HCl 50 mg tablet 09-25 00:00: 00 No 1mg Prozac 20 mg capsule 09-25 00:00: 00 No 1mg Dose Unknown 3 [...] y
Durat ion of Therapy: 7 days [facility] morpHINE injection 4 mg 03-17 01:58: 00 03-17 02:13 :00 No 4mg 4 mg, Slow IV Push, ONCE, 1 dose, 03/16/21 at 2100, STAT [facility] ondansetron (ZOFRAN (PF)) injection 4 mg 03-17 01:58: 00 03-17 02:12 :00 No 4mg 4 mg, Slow IV Push, ONCE, 1 dose, 03/16/21 at 2100, [facility] ipratropium -albuteroL (DUONEB) 0.5 mg-3 mg(2.5 mg base)/3 mL nebulizer solution 3 mL 03-17 01:57: 00 03-17 02:15 :00 No 3mL 3 mL, Inhalation , ONCE, 1 dose, 03/16/21 at 2100, [facility] NaCl 0.9% (NS) IV infusion 1,000 mL 03-17 01:57: 00 03-17 03:07 :00 No 1000mL at 999 mL/hr, Intravenou s, ONCE, 1 dose, 03/16/21 at 2100, MIC[facility] methylpredn isolone sod succ (SOLU-MEDRO L) injection 125 mg 03-17 01:57: 00 03-17 02:11 :00 No 125mg 125 mg, Slow IV Push, ONCE, 1 dose, 03/16/21 at 2100, STAT [facility] levoFLOXaci n 500 mg tablet 03-17 00:00: 00 03-24 04:59 :00 No [id number] 500mg Take 1 tablet by mouth daily for 6 days. [facility] predniSONE 10 mg tablet 03-17 00:00: 00 03-22 04:59 :00 No [id number] 30mg Take 3 tablets by mouth daily for 4 days. [facility] albuterol (VENTOLIN) inhaler 4 Puff 03-15 01:45: 00 03-15 00:44 :00 No [id number] 4{puff} 4 Puff, Inhalation , ONCE, 1 dose, [facility] 03/14/21 at 2044, Routine [facility] ity [facility] dexamethaso ne (DECADRON) injection 10 mg 03-15 01:45: 00 03-15 00:45 :00 No [id number] 10mg 10 mg, Intramuscu lar, ONCE, 1 dose, [place] 03/14/21 at 2044, [facility]ine [facility]5 [facility] /3 mL (0.083 %) nebulizer solution 03-15 00:00: 00 01-09 00:00 :00 No [id number] 2.5mg Inhale 3 mL every 4 (four) hours as needed for Wheezing or Shortness of Breath. [facility] levETIRAcet am (KEPPRA) in NACL (ISO-OS) 1,000 mg/100 mL RTU 02-19 20:15: 00 02-19 19:30 :00 No 1000mg 1,000 mg, IV Infusion, ONCE, 1 dose, 02/19/21 at 1515, Administer over 15 Minutes, 100 mL [facility] levetiracet am (KEPPRA ORAL) 02-19 19:45: 33 Yes Take by mouth. [facility] LISINOPRIL- HYDROCHLORO THIAZIDE ORAL 02-19 19:41: 15 02-19 00:00 :00 No Take by mouth. [facility] ity [facility] dicyclomine (BENTYL) injection 20 mg 02-19 19:15: 00 02-19 19:04 :00 No 20mg 20 mg, Intramuscu lar, ONCE, 1 dose, 02/19/21 at 1415, Routine [facility] ity [facility] proMETHazin e (PHENERGAN) 25 mg in NaCl 0.9% (NS) 50 mL piggyback 02-19 19:15: 00 02-19 19:03 :00 No 25mg 25 mg, IV Piggyback, ONCE, 1 dose, 02/19/21 at 1415, 50 mL [facility] morpHINE injection 4 mg 02-19 17:15: 00 02-19 17:05 :00 No 4mg 4 mg, Slow IV Push, ONCE, 1 dose, 02/19/21 at 1215, STAT [facility] NaCl 0.9% (NS) bolus infusion 1,000 mL 02-19 17:15: 00 02-19 19:04 :00 No 1000mL at 999 mL/hr, 1,000 mL, IV Infusion, ONCE, 1 dose, 02/19/21 at 1215, STAT [facility] ondansetron (ZOFRAN (PF)) injection 4 mg 02-19 17:00: 00 02-19 15:59 :00 No 4mg 4 mg, Slow IV Push, ONCE, 1 dose, 02/19/21 at 1200, [facility] iopamidol (ISOVUE 370-500 mL) injection 100 mL 02-19 16:35: 00 02-19 16:45 :00 No [id number] 100mL 100 mL, Intravenou s, ONCE, 1 dose, 02/19/21 at 1145, Routine [facility] levetiracet am (KEPPRA ORAL) 02-19 14:45: 33 Yes Take by mouth. [facility] dicyclomine 20 mg tablet 02-19 00:00: 00 01-09 00:00 :00 No [id number] 20mg Take 1 tablet by mouth 4 (four) times daily as needed for Abdominal pain. [facility] proMETHazin e 25 mg tablet 02-19 00:00: 00 11-27 00:00 :00 No [id number] 25mg Take 1 tablet by mouth every 6 (six) hours as needed for Nausea and Vomiting (N/V). [facility] ZONISAMIDE 100 mg capsule 11-15 00:00: 00 Yes TAKE 1 CAPSULE BY MOUTH TWICE A DAY [facility] ondansetron (ZOFRAN) 4 mg tablet 02-09 20:05: 01 Yes 4mg Take 4 mg by mouth every 8 (eight) hours as needed. [facility] pantoprazol e (PROTONIX) 40 mg EC tablet 02-09 20:05: 01 Yes 40mg Take 40 mg by mouth daily. [facility] LISINOPRIL- HYDROCHLORO THIAZIDE ORAL 02-09 20:05: 01 Yes Take by mouth. [facility] lisinopril- hydrochloro thiazide 20-12.5 mg per tablet 02-09 20:03: 30 Yes 1{tbl} Take 1 tablet by mouth daily. [facility] omega-3 fatty acids-vitam in E (FISH OIL) 1,000 mg capsule 02-09 19:59: 52 Yes 1g Take 1 g by mouth daily. [facility] MULTIVITAMI N ORAL 02-09 19:58: 14 Yes 1{tbl} Take 1 Tab by mouth daily. [facility] loratadine (CLARITIN LIQUI-GEL) 10 mg capsule 02-09 19:58: 14 Yes Take by mouth daily. [facility] ondansetron (ZOFRAN) 4 mg tablet 02-09 15:05: 01 Yes 4mg Take 4 mg by mouth every 8 (eight) hours as needed. [facility] pantoprazol e (PROTONIX) 40 mg EC tablet 02-09 15:05: 01 Yes 40mg Take 40 mg by mouth daily. [facility] lisinopril- hydrochloro thiazide 20-12.5 mg per tablet 02-09 15:03: 30 Yes 1{tbl} Take 1 tablet by mouth daily. [facility] omega-3 fatty acids-vitam in E (FISH OIL) 1,000 mg capsule 02-09 14:59: 52 Yes 1g Take 1 g by mouth daily. [facility] MULTIVITAMI N ORAL 02-09 14:58: 14 Yes 1{tbl} Take 1 Tab by mouth daily. [facility] loratadine (CLARITIN LIQUI-GEL) 10 mg capsule 02-09 14:58: 14 Yes Take by mouth daily. [facility] proMETHazin e (PHENERGAN) 25 mg tablet 11-20 00:00: 00 Yes 25mg Take 1 tablet by mouth every 6 (six) hours as needed for Nausea and Vomiting (N/V). [facility] carvedilol (COREG) 6.25 mg tablet 09-19 00:00: 00 12-02 00:00 :00 No 6.25mg Take 1 Tab by mouth 2 (two) times daily with meals. [facility] amLODIPine (NORVASC) 10 mg tablet 09-19 00:00: 00 12-02 00:00 :00 No 10mg Take 1 Tab by mouth daily. [facility] lisinopril (PRINIVIL,Z ESTRIL) 40 mg tablet 09-19 00:00: 00 11-27 00:00 :00 No 40mg Take 1 Tab by mouth daily. [facility] Immunizations Ordered Immunization Name Filled Immunization Name Date Status Comments Source SARS-COV-2 COVID-19 PFIZER BA-SUCROSE VACCINE (ROSE TOP) 2022-02-19 00:00:00 Completed [facility] SARS-COV-2 COVID-19 PFIZER BA-SUCROSE VACCINE (ROSE TOP) 2022-02-19 00:00:00 Completed [facility] SARS-COV-2 COVID-19 PFIZER BA-SUCROSE VACCINE (ROSE TOP) 2022-02-19 00:00:00 Completed [facility] SARS-COV-2 COVID-19 PFIZER BA-SUCROSE VACCINE (ROSE TOP) 2022-02-19 00:00:00 Completed [facility] SARS-COV-2 COVID-19 PFIZER BA-SUCROSE VACCINE (ROSE TOP) 2022-02-19 00:00:00 Completed [facility] SARS-COV-2 COVID-19 PFIZER BA-SUCROSE VACCINE (ROSE TOP) 2022-02-19 00:00:00 Completed [facility] SARS-COV-2 COVID-19 PFIZER BA-SUCROSE VACCINE (ROSE TOP) 2022-02-19 00:00:00 Completed [facility] SARS-COV-2 COVID-19 PFIZER BA-SUCROSE VACCINE (ROSE TOP) 2022-02-19 00:00:00 Completed [facility] SARS-COV-2 COVID-19 PFIZER BA-SUCROSE VACCINE (ROSE TOP) 2022-02-19 00:00:00 Completed [facility] SARS-COV-2 COVID-19 PFIZER VACCINE 2021-05-24 00:00:00 Completed [facility] SARS-COV-2 COVID-19 PFIZER VACCINE 2021-05-24 00:00:00 Completed [facility] SARS-COV-2 COVID-19 PFIZER VACCINE 2021-05-24 00:00:00 Completed [facility] SARS-COV-2 COVID-19 PFIZER VACCINE 2021-05-24 00:00:00 Completed [facility] SARS-COV-2 COVID-19 PFIZER VACCINE 2021-05-24 00:00:00 Completed [facility] SARS-COV-2 COVID-19 PFIZER VACCINE 2021-05-24 00:00:00 Completed [facility] SARS-COV-2 COVID-19 PFIZER VACCINE 2021-05-24 00:00:00 Completed [facility] SARS-COV-2 COVID-19 PFIZER VACCINE 2021-05-24 00:00:00 Completed [facility] SARS-COV-2 COVID-19 PFIZER VACCINE 2021-05-24 00:00:00 Completed [facility] SARS-COV-2 COVID-19 PFIZER VACCINE 2021-05-24 00:00:00 Completed [facility] SARS-COV-2 COVID-19 PFIZER VACCINE 2021-05-24 00:00:00 Completed [facility] SARS-COV-2 COVID-19 PFIZER VACCINE 2021-05-03 00:00:00 Completed [facility] SARS-COV-2 COVID-19 PFIZER VACCINE 2021-05-03 00:00:00 Completed [facility] SARS-COV-2 COVID-19 PFIZER VACCINE 2021-05-03 00:00:00 Completed [facility] SARS-COV-2 COVID-19 PFIZER VACCINE 2021-05-03 00:00:00 Completed [facility] SARS-COV-2 COVID-19 PFIZER VACCINE 2021-05-03 00:00:00 Completed [facility] SARS-COV-2 COVID-19 PFIZER VACCINE 2021-05-03 00:00:00 Completed [facility] SARS-COV-2 COVID-19 PFIZER VACCINE 2021-05-03 00:00:00 Completed [facility] SARS-COV-2 COVID-19 PFIZER VACCINE 2021-05-03 00:00:00 Completed [facility] SARS-COV-2 COVID-19 PFIZER VACCINE 2021-05-03 00:00:00 Completed [facility] SARS-COV-2 COVID-19 PFIZER VACCINE 2021-05-03 00:00:00 Completed [facility] SARS-COV-2 COVID-19 PFIZER VACCINE 2021-05-03 00:00:00 Completed [facility] SARS-COV-2 COVID-19 PFIZER VACCINE 2021-05-03 00:00:00 Completed [facility] SARS-COV-2 COVID-19 PFIZER VACCINE Unknown Completed [facility] SARS-COV-2 COVID-19 PFIZER VACCINE Unknown Completed [facility] SARS-COV-2 COVID-19 PFIZER BA-SUCROSE VACCINE (ROSE TOP) Unknown Completed [facility] SARS-COV-2 COVID-19 PFIZER VACCINE Unknown Completed [facility] SARS-COV-2 COVID-19 PFIZER VACCINE Unknown Completed [facility] SARS-COV-2 COVID-19 PFIZER BA-SUCROSE VACCINE (ROSE TOP) Unknown Completed [facility] SARS-COV-2 COVID-19 PFIZER VACCINE Unknown Completed [facility] SARS-COV-2 COVID-19 PFIZER VACCINE Unknown Completed [facility] SARS-COV-2 COVID-19 PFIZER BA-SUCROSE VACCINE (ROSE TOP) Unknown Completed [facility] SARS-COV-2 COVID-19 PFIZER VACCINE Unknown Completed [facility] SARS-COV-2 COVID-19 PFIZER VACCINE Unknown Completed [facility] SARS-COV-2 COVID-19 PFIZER BA-SUCROSE VACCINE (ROSE TOP) Unknown Completed [facility] SARS-COV-2 COVID-19 PFIZER VACCINE Unknown Completed [facility] SARS-COV-2 COVID-19 PFIZER VACCINE Unknown Completed [facility] SARS-COV-2 COVID-19 PFIZER BA-SUCROSE VACCINE (ROSE TOP) Unknown Completed [facility] SARS-COV-2 COVID-19 PFIZER VACCINE Unknown Completed [facility] SARS-COV-2 COVID-19 PFIZER VACCINE Unknown Completed [facility] SARS-COV-2 COVID-19 PFIZER BA-SUCROSE VACCINE (ROSE TOP) Unknown Completed [facility] SARS-COV-2 COVID-19 PFIZER VACCINE Unknown Completed [facility] SARS-COV-2 COVID-19 PFIZER VACCINE Unknown Completed [facility] SARS-COV-2 COVID-19 PFIZER BA-SUCROSE VACCINE (ROSE TOP) Unknown Completed [facility] SARS-COV-2 COVID-19 PFIZER VACCINE Unknown Completed [facility] SARS-COV-2 COVID-19 PFIZER VACCINE Unknown Completed [facility] SARS-COV-2 COVID-19 PFIZER BA-SUCROSE VACCINE (ROSE TOP) Unknown Completed [facility] SARS-COV-2 COVID-19 PFIZER VACCINE Unknown Completed [facility] SARS-COV-2 COVID-19 PFIZER VACCINE Unknown Completed [facility] SARS-COV-2 COVID-19 PFIZER BA-SUCROSE VACCINE (ROSE TOP) Unknown Completed [facility] SARS-COV-2 COVID-19 PFIZER VACCINE Unknown Completed [facility] SARS-COV-2 COVID-19 PFIZER VACCINE Unknown Completed [facility] SARS-COV-2 COVID-19 PFIZER BA-SUCROSE VACCINE (ROSE TOP) Unknown Completed [facility] SARS-COV-2 COVID-19 PFIZER VACCINE Unknown Completed [facility] SARS-COV-2 COVID-19 PFIZER VACCINE Unknown Completed [facility] SARS-COV-2 COVID-19 PFIZER BA-SUCROSE VACCINE (ROSE TOP) Unknown Completed [facility] SARS-COV-2 COVID-19 PFIZER VACCINE Unknown Completed [facility] SARS-COV-2 COVID-19 PFIZER VACCINE Unknown Completed [facility] SARS-COV-2 COVID-19 PFIZER BA-SUCROSE VACCINE (ROSE TOP) Unknown Completed [facility] SARS-COV-2 COVID-19 PFIZER VACCINE Unknown Completed [facility] SARS-COV-2 COVID-19 PFIZER VACCINE Unknown Completed [facility] SARS-COV-2 COVID-19 PFIZER BA-SUCROSE VACCINE (ROSE TOP) Unknown Completed [facility] SARS-COV-2 COVID-19 PFIZER VACCINE Unknown Completed [facility] SARS-COV-2 COVID-19 PFIZER VACCINE Unknown Completed [facility] SARS-COV-2 COVID-19 PFIZER BA-SUCROSE VACCINE (ROSE TOP) Unknown Completed [facility] Vital Signs Vital Name Observation Time Observation Value Comments S ource Systolic blood pressure 2024-01-13 04:50:00 103 mm[Hg] [facility] Diastolic blood pressure 2024-01-13 04:50:00 72 mm[Hg] [facility] Heart rate 2024-01-13 04:50:00 85 /min [facility] Body temperature 2024-01-13 04:50:00 36.67 Radha [facility] Oxygen saturation in Arterial blood by Pulse oximetry 2024-01-13 04:50:00 99 /min [facility] Respiratory rate 2024-01-13 04:40:00 19 /min [facility] Body height 2024-01-13 03:06:00 160 cm [facility] Body weight 2024-01-13 03:06:00 81.194 kg [facility] BMI 2024-01-13 03:06:00 31.71 kg/m2 [facility] Systolic blood pressure 2024-01-10 20:00:00 95 mm[Hg] [facility] Diastolic blood pressure 2024-01-10 20:00:00 71 mm[Hg] [facility] Heart rate 2024-01-10 20:00:00 73 /min [facility] Body temperature 2024-01-10 20:00:00 36.83 Radha [facility] Respiratory rate 2024-01-10 20:00:00 23 /min [facility] Oxygen saturation in Arterial blood by Pulse oximetry 2024-01-10 20:00:00 94 /min [facility] Body weight 2024-01-10 09:00:00 81.466 kg [facility] BMI 2024-01-10 09:00:00 32.85 kg/m2 [facility] Body height 2024-01-09 21:10:00 157.5 cm [facility] Heart rate 2023-12-15 12:35:00 73 /min [facility] Respiratory rate 2023-12-15 12:35:00 18 /min [facility] Oxygen saturation in Arterial blood by Pulse oximetry 2023-12-15 12:35:00 95 /min [facility] Systolic blood pressure 2023-12-15 12:20:00 105 mm[Hg] [facility] Diastolic blood pressure 2023-12-15 12:20:00 64 mm[Hg] [facility] Body temperature 2023-12-15 12:20:00 36.11 Radha [facility] Body weight 2023-12-15 08:12:00 78.472 kg [facility] BMI 2023-12-15 08:12:00 30.65 kg/m2 [facility] Body height 2023-12-15 02:10:00 160 cm [facility] Systolic blood pressure 2023-12-03 23:00:00 106 mm[Hg] [facility] Diastolic blood pressure 2023-12-03 23:00:00 75 mm[Hg] [facility] Heart rate 2023-12-03 23:00:00 108 [facility] Body temperature 2023-12-03 23:00:00 36.61 Radha [facility] Respiratory rate 2023-12-03 23:00:00 17 /min [facility] Oxygen saturation in Arterial blood by Pulse oximetry 2023-12-03 23:00:00 96 /min [facility] Body height 2023-12-03 19:39:00 160 cm [facility] Body weight 2023-12-03 19:39:00 90.7 kg [facility] BMI 2023-12-03 19:39:00 35.43 kg/m2 [facility] Systolic blood pressure 2023-11-28 16:39:00 91 mm[Hg] [facility] Diastolic blood pressure 2023-11-28 16:39:00 65 mm[Hg] [facility] Heart rate 2023-11-28 16:39:00 105 /min [facility] Body temperature 2023-11-28 16:39:00 36.28 Radha [facility] Respiratory rate 2023-11-28 16:39:00 20 /min [facility] Oxygen saturation in Arterial blood by Pulse oximetry 2023-11-28 16:39:00 97 /min [facility] Body weight 2023-11-28 01:00:00 84 kg [facility] BMI 2023-11-28 01:00:00 32.81 kg/m2 [facility] Body height 2023-11-22 07:10:00 160 cm [facility] Systolic blood pressure 2023-11-23 19:43:25 123 mm[Hg] [facility] Diastolic blood pressure 2023-11-23 19:43:25 79 mm[Hg] [facility] Respiratory rate 2023-11-23 19:43:25 17 /min [facility] Oxygen saturation in Arterial blood by Pulse oximetry 2023-11-23 19:43:25 97 /min [facility] Heart rate 2023-11-23 19:20:46 122 /min [facility] Body temperature 2023-11-23 15:00:00 36.22 Radha [facility] Body height 2023-11-22 07:10:00 160 cm [facility] Body weight 2023-11-22 07:10:00 94.484 kg [facility] BMI 2023-11-22 07:10:00 35.16 kg/m2 [facility] Systolic blood pressure 2023-09-11 17:27:00 122 mm[Hg] Cynthia Seybo ld - External Diastolic blood pressure 2023-09-11 17:27:00 74 mm[Hg] Cynthia Bedoyao ld - External Heart rate 2023-09-11 17:27:00 80 /min Kimani Garcia - External Body temperature 2023-09-11 17:27:00 36.72 Radha Cynthia Bedoyaold - External Respiratory rate 2023-09-11 17:27:00 18 [...] Systolic blood pressure 2023-08-12 21:00:00 130 mm[Hg] [facility] Diastolic blood pressure 2023-08-12 21:00:00 85 mm[Hg] [facility] Heart rate 2023-08-12 21:00:00 106 /min [facility] Respiratory rate 2023-08-12 21:00:00 14 /min [facility] Oxygen saturation in Arterial blood by Pulse oximetry 2023-08-12 21:00:00 95 /min [facility] Body temperature 2023-08-12 20:34:54 37.22 Radha [facility] Body height 2023-08-12 19:47:00 157.5 cm [facility] Body weight 2023-08-12 19:47:00 81.647 kg [facility] BMI 2023-08-12 19:47:00 32.92 kg/m2 [facility] WEIGHT 2023-06-16 05:26:00 86.047 [...] Systolic blood pressure 2022-12-11 20:00:00 142 mm[Hg] [facility] Diastolic blood pressure 2022-12-11 20:00:00 90 mm[Hg] [facility] Respiratory rate 2022-12-11 20:00:00 24 /min [facility] Heart rate 2022-12-11 18:00:00 101 /min [facility] Oxygen saturation in Arterial blood by Pulse oximetry 2022-12-11 18:00:00 93 /min [facility] BMI 2022-12-11 13:55:00 35.43 kg/m2 [facility] Body temperature 2022-12-11 13:55:00 37.22 [facility] Body weight 2022-12-11 13:55:00 90.719 kg [facility] Systolic blood pressure 2022-11-18 05:34:00 152 mm[Hg] [facility] Diastolic blood pressure 2022-11-18 05:34:00 98 mm[Hg] [facility] Heart rate 2022-11-18 05:34:00 88 /min [facility] Respiratory rate 2022-11-18 05:34:00 18 /min [facility] Oxygen saturation in Arterial blood by Pulse oximetry 2022-11-18 05:34:00 97 /min [facility] Body temperature 2022-11-17 22:28:00 37.06 [facility] Body height 2022-11-17 22:28:00 160 cm [facility] Body weight 2022-11-17 22:28:00 99.791 kg [facility] BMI 2022-11-17 22:28:00 38.97 kg/m2 [facility] Heart rate 2022-08-02 02:02:00 108 /min [facility] Respiratory rate 2022-08-02 02:02:00 28 /min [facility] Oxygen saturation in Arterial blood by Pulse oximetry 2022-08-02 02:02:00 97 /min [facility] Body temperature 2022-08-02 01:00:00 36.44 [facility] Systolic blood pressure 2022-08-01 23:29:00 145 mm[Hg] [facility] Diastolic blood pressure 2022-08-01 23:29:00 103 mm[Hg] [facility] Body weight 2022-08-01 09:16:00 97.977 kg [facility] BMI 2022-08-01 09:16:00 38.26 kg/m2 [facility] Body height 2022-07-31 21:54:00 160 cm [facility] Systolic blood pressure 2022-05-08 16:40:00 146 mm[Hg] [facility] Diastolic blood pressure 2022-05-08 16:40:00 96 mm[Hg] [facility] Heart rate 2022-05-08 16:40:00 112 /min [facility] Body temperature 2022-05-08 16:40:00 36.78 Radha [facility] Respiratory rate 2022-05-08 16:40:00 18 /min [facility] Oxygen saturation in Arterial blood by Pulse oximetry 2022-05-08 16:40:00 94 /min [facility] Body height 2022-05-05 23:44:00 160 cm [facility] Body weight 2022-05-05 23:37:00 81.647 kg [facility] BMI 2022-05-05 23:37:00 31.89 kg/m2 [facility] Systolic blood pressure 2022-04-15 18:52:00 104 mm[Hg] [facility] Diastolic blood pressure 2022-04-15 18:52:00 82 mm[Hg] [facility] Heart rate 2022-04-15 18:52:00 114 /min [facility] Oxygen saturation in Arterial blood by Pulse oximetry 2022-04-15 18:52:00 98 /min [facility] Body temperature 2022-04-15 16:14:00 36.28 Radha [facility] Respiratory rate 2022-04-15 16:14:00 17 /min [facility] Body height 2022-04-13 21:08:00 160 cm [facility] Body weight 2022-04-13 21:08:00 91.173 kg [facility] BMI 2022-04-13 21:08:00 35.61 kg/m2 [facility] Systolic blood pressure 2021-11-23 21:30:00 132 mm[Hg] [facility] Diastolic blood pressure 2021-11-23 21:30:00 76 mm[Hg] [facility] Heart rate 2021-11-23 21:30:00 95 /min [facility] Respiratory rate 2021-11-23 21:30:00 13 /min [facility] Oxygen saturation in Arterial blood by Pulse oximetry 2021-11-23 21:30:00 97 /min [facility] Body temperature 2021-11-23 20:15:00 37.56 Radha [facility] Systolic blood pressure 2021-03-17 03:00:00 117 mm[Hg] [facility] Diastolic blood pressure 2021-03-17 03:00:00 76 mm[Hg] [facility] Heart rate 2021-03-17 03:00:00 104 /min [facility] Respiratory rate 2021-03-17 03:00:00 28 /min [facility] Oxygen saturation in Arterial blood by Pulse oximetry 2021-03-17 03:00:00 96 /min [facility] Body temperature 2021-03-17 00:39:00 37.11 Radha [facility] Body height 2021-03-17 00:39:00 160 cm [facility] Body weight 2021-03-17 00:39:00 58.968 kg [facility] BMI 2021-03-17 00:39:00 23.03 kg/m2 [facility] Systolic blood pressure 2021-03-15 00:14:00 149 mm[Hg] [facility] Diastolic blood pressure 2021-03-15 00:14:00 78 mm[Hg] [facility] Heart rate 2021-03-15 00:14:00 100 /min [facility] Body temperature 2021-03-15 00:14:00 37.33 Radha [facility] Respiratory rate 2021-03-15 00:14:00 24 /min [facility] Body height 2021-03-15 00:14:00 160 cm [facility] Body weight 2021-03-15 00:14:00 58.968 kg [facility] BMI 2021-03-15 00:14:00 23.03 kg/m2 [facility] Oxygen saturation in Arterial blood by Pulse oximetry 2021-03-15 00:14:00 98 /min [facility] Systolic blood pressure 2021-02-19 18:00:00 131 mm[Hg] [facility] Diastolic blood pressure 2021-02-19 18:00:00 80 mm[Hg] [facility] Heart rate 2021-02-19 18:00:00 83 /min [facility] Respiratory rate 2021-02-19 18:00:00 18 /min [facility] Oxygen saturation in Arterial blood by Pulse oximetry 2021-02-19 18:00:00 100 /min [facility] Body temperature 2021-02-19 15:47:00 37 Radha [facility] Body height 2021-02-19 15:47:00 160 cm [facility] Body weight 2021-02-19 15:47:00 58.968 kg [facility] BMI 2021-02-19 15:47:00 23.03 kg/m2 [facility] Heart rate 2023-09-08 08:54:00 118 /min [facility] Respiratory rate 2023-09-08 08:54:00 21 /min [facility] Oxygen saturation in Arterial blood by Pulse oximetry 2023-09-08 08:54:00 100 /min [facility] Systolic blood pressure 2023-09-08 08:32:00 110 mm[Hg] [facility] Diastolic blood pressure 2023-09-08 08:32:00 77 mm[Hg] [facility] Body temperature 2023-09-08 08:32:00 36.06 Radha [facility] Body height 2023-09-04 00:58:00 157.5 cm [facility] Body weight 2023-09-04 00:58:00 80 kg [facility] BMI 2023-09-04 00:58:00 32.26 kg/m2 [facility] Heart rate 2023-06-16 17:00:00 108 /min [facility] Systolic blood pressure 2023-06-16 15:31:00 101 mm[Hg] [facility] Diastolic blood pressure 2023-06-16 15:31:00 81 mm[Hg] [facility] Body temperature 2023-06-16 15:31:00 36.61 Radha [facility] Respiratory rate 2023-06-16 15:31:00 18 /min [facility] Oxygen saturation in Arterial blood by Pulse oximetry 2023-06-16 15:31:00 94 /min [facility] Body weight 2023-06-16 05:26:00 86.047 kg [facility] BMI 2023-06-16 05:26:00 33.60 kg/m2 [facility] Body height 2023-06-13 04:00:00 160 cm [facility] Systolic blood pressure 2023-06-04 13:02:00 93 mm[Hg] [facility] Diastolic blood pressure 2023-06-04 13:02:00 57 mm[Hg] [facility] Heart rate 2023-06-04 13:02:00 101 /min [facility] Respiratory rate 2023-06-04 13:02:00 22 /min [facility] Oxygen saturation in Arterial blood by Pulse oximetry 2023-06-04 13:02:00 95 /min room air [facility] Body temperature 2023-06-04 11:46:00 35.28 Radha [facility] Systolic blood pressure 2023-05-28 16:00:00 154 mm[Hg] [facility] Diastolic blood pressure 2023-05-28 16:00:00 82 mm[Hg] [facility] Heart rate 2023-05-28 16:00:00 89 /min [facility] Body temperature 2023-05-28 16:00:00 36.67 Radha [facility] Respiratory rate 2023-05-28 16:00:00 16 /min [facility] Oxygen saturation in Arterial blood by Pulse oximetry 2023-05-28 16:00:00 97 /min [facility] Body height 2023-05-28 07:00:00 157.5 cm [facility] Body weight 2023-05-28 07:00:00 87.544 kg [facility] BMI 2023-05-28 07:00:00 35.30 kg/m2 [facility] Body height 2023-05-26 09:12:00 157.5 cm [facility] Body weight 2023-05-26 09:12:00 87.091 kg [facility] BMI 2023-05-26 09:12:00 35.12 kg/m2 [facility] Respiratory rate 2023-04-02 16:35:00 18 /min [facility] Oxygen saturation in Arterial blood by Pulse oximetry 2023-04-02 16:35:00 98 /min [facility] Systolic blood pressure 2023-04-02 12:00:00 147 mm[Hg] [facility] Diastolic blood pressure 2023-04-02 12:00:00 97 mm[Hg] [facility] Heart rate 2023-04-02 12:00:00 106 /min [facility] Body temperature 2023-04-02 12:00:00 36.28 Radha [facility] Body height 2023-03-30 02:14:00 157.5 cm [facility] Body weight 2023-03-30 02:14:00 92.08 kg [facility] BMI 2023-03-30 02:14:00 37.13 kg/m2 [facility] Respiratory rate 2022-08-03 14:40:00 18 /min [facility] Systolic blood pressure 2022-08-03 12:13:00 112 mm[Hg] [facility] Diastolic blood pressure 2022-08-03 12:13:00 77 mm[Hg] [facility] Heart rate 2022-08-03 12:13:00 115 /min [facility] Oxygen saturation in Arterial blood by Pulse oximetry 2022-08-03 12:13:00 93 /min [facility] Body temperature 2022-08-03 12:00:00 36.83 Radha [facility] Body height 2022-08-02 21:52:00 160.2 cm [facility] Body weight 2022-08-02 21:52:00 95 kg [facility] BMI 2022-08-02 21:52:00 37.02 kg/m2 [facility] BP Systolic 2022-07-24 13:31:00 136 [...] Date / Time Performed Performing Clinician Source EKG-12 LEAD 2024-01-13 04:42:14 Radha Wyatt [facility] TROPONIN I 2024-01-13 03:20:00 Radha Wyatt [facility] COMP. METABOLIC PANEL (94607) 2024-01-13 03:20:00 Radha Wyatt [facility] CBC WITH DIFF 2024-01-13 03:20:00 Radha Wyatt [facility] TRANSTHORACIC ECHO (TTE) LIMITED W/ DOPPLER, COLOR AND CONTRAST 2024-01-10 13:07:00 Darrick Altamirano [facility] MAGNESIUM 2024-01-10 09:16:00 Darrick Altamirano [facility] TROPONIN I 2024-01-10 09:16:00 Darrick Altamirano [facility] BASIC METABOLIC PANEL (NA, K , CL, CO2, GLUCOSE, BUN, CREATININE, CA) 2024-01-10 09:16:00 Darrick Altamirano [facility] LIPID PANEL ([id number])(TOTAL CHOLESTEROL, TRIGLYCERIDES, HDL) 2024-01-10 09:16:00 Darrick Altamirano [facility] CBC WITH DIFF 2024-01-10 09:16:00 Darrick Altamirano [facility] PROTHROMBIN TIME / INR 2024-01-10 09:16:00 Darrick Altamirano [facility] ACTIVATED PARTIAL THRMPLAS DAVID 2024-01-10 09:16:00 Darrick Altamirano [facility] N-TERMINAL PRO-BNP 2024-01-10 09:16:00 Darrick Altamirano [facility] PHOSPHORUS 2024-01-10 04:58:00 Darrick Altamirano [facility] BLOOD CULTURE SCREEN 2024-01-10 02:39:00 Alfonso Alvarado [facility] BLOOD CULTURE SCREEN 2024-01-10 02:20:00 Alfonso Alvarado [facility] LACTIC ACID WHOLE BLOOD 2024-01-10 01:52:00 Alfonso Alvarado [facility] CT CHEST PULMONARY ANGIOGRAM 2024-01-09 23:59:01 [facility] XR CHEST 1 VW 2024-01-09 21:49:[address] [facility] TROPONIN I 2024-01-09 21:39:[address] [facility] COMP. METABOLIC PANEL ([id number]) 2024-01-09 21:39:00 [facility]undio [facility] CBC WITH DIFF 2024-01-09 21:39:[address] [facility] D-DIMER 2024-01-09 21:39[facility] 2024-01-09 21:39:[address] [facility] HB ECG ROUTINE & RHYTHM STRIP 2024-01-09 21:13:[address] [facility] POCT GLUCOSE (AUTOMATED) 2023-12-15 12:43[facility]00 [facility]-15 10:26:[address] [facility] TROPONIN I 2023-12-15 10:26:[address] [facility] BASIC METABOLIC PANEL (NA, K , CL, CO2, GLUCOSE, BUN, CREATININE, CA) 2023-12-15 10:26:[address] [facility] CBC WITH DIFF 2023-12-15 10:26:00 Dayanna Huff [facility] N-TERMINAL PRO-BNP 2023-12-15 10:26:[address] [facility] TROPONIN I 2023-12-15 03:21:[address] [facility] FREE T4 2023-12-15 03:21:[address] [facility] DIGOXIN 2023-12-15 03:21:00 Dayanna Huff [facility] POCT GLUCOSE (AUTOMATED) 2023-12-15 00:56:[address] [facility] TROPONIN I 2023-12-14 21:05:00 Singer [facility] THYROID STIMULATING HORMONE 2023-12-14 21:05:[address] [facility] FREE T3 2023-12-14 21:05:[address] [facility] XR CHEST 1 VW 2023-12-14 19:25:00 Singer [facility] TROPONIN I 2023-12-14 19:19:00 Singer [facility] COMP. METABOLIC PANEL ([id number]) 2023-12-14 19:19:00 Singer [facility] CBC WITH DIFF 2023-12-14 19:19:00 Singer [facility] D-DIMER 2023-12-14 [facility]12-14 [facility] 2023-12-14 18:38:[address] [facility] POCT GLUCOSE (AUTOMATED) 2023-12-03 21:23:00 Connor Renee [facility] BASIC METABOLIC PANEL (NA, K , CL, CO2, GLUCOSE, BUN, CREATININE, CA) 2023-12-03 17:58:00 Mukesh Tabor [facility] POCT GLUCOSE (AUTOMATED) 2023-12-03 16:51:00 Connor Renee [facility] POCT GLUCOSE (AUTOMATED) 2023-12-03 13:00:00 Connor Renee [facility] MAGNESIUM 2023-12-03 09:21:00 Mariaelena Gross [facility] HEPATIC FUNCTION PANEL ([id number]) (ALB,T.PRO,BILI T,BU/BC,ALT,AST,ALK PHOS) 2023-12-03 09:21:00 Ginny [facility] BASIC METABOLIC PANEL (NA, K , CL, CO2, GLUCOSE, BUN, CREATININE, CA) 2023-12-03 09:21:00 Ginny [facility] AC PANEL 21 + LACTIC ACID 2023-12-03 01:45:00 Ginny [facility] MRSA / MSSA SCREEN BY PCR, RED 2023-12-03 01:45:00 Ginny Mariaelena [facility] CT CHEST PULMONARY ANGIOGRAM 2023-12-02 19:32:14 Connor Renee [facility] XR CHEST 1 VW 2023-12-02 19:04:00 Connor Renee [facility] BLOOD CULTURE SCREEN 2023-12-02 18:53:00 Connor Renee [facility] TROPONIN I 2023-12-02 18:53:00 Connor Renee [facility] COMP. METABOLIC PANEL ([id number]) 2023-12-02 18:53:00 Connor Renee [facility] CBC WITH DIFF 2023-12-02 18:53:00 Connor Renee [facility] RAPID INFLUENZA A/B 2023-12-02 18:53:00 Connor Renee [facility] N-TERMINAL PRO-BNP 2023-12-02 18:53:00 [facility] [facility] [place] COVID-19 (ID NOW RAPID TESTING) 2023-12-02 18:53:00 Connor Renee [facility] [place] BLOOD CULTURE SCREEN 2023-12-02 18:49:00 Connor Renee [facility] [place] AC ABG + LACTIC ACID 2023-12-02 18:26:00 Connor Renee [facility] [place] HB ECG ROUTINE & RHYTHM STRIP 2023-12-02 18:06:10 Connor Renee [facility] [place] POCT GLUCOSE (AUTOMATED) 2023-11-28 16:40:00 Cr Altamirano [facility] [place] PHOSPHORUS 2023-11-28 09:22:00 Leander [facility] MAGNESIUM 2023-11-28 09:22:00 Leander [facility] COMP. METABOLIC PANEL ([id number]) 2023-11-28 09:22:00 Leander [facility] CBC WITH DIFF 2023-11-28 09:22:00 Leander [facility] N-TERMINAL PRO-BNP 2023-11-28 09:22:00 Torrey Baez [facility] [place] POCT GLUCOSE (AUTOMATED) 2023-11-28 01:31:00 Lorenzo [facility] POCT GLUCOSE (AUTOMATED) 2023-11-27 21:45:00 Lorenzo [facility] POCT GLUCOSE (AUTOMATED) 2023-11-27 16:30:00 Lorenzo Hemrosalie [facility] POCT GLUCOSE (AUTOMATED) 2023-11-27 12:39:00 [facility] LACTIC ACID WHOLE BLOOD 2023-11-27 06:35:00 Leander [facility] MAGNESIUM 2023-11-27 06:34:00 Leander [facility] COMP. METABOLIC PANEL ([id number]) 2023-11-27 06:34:00 Leander [facility] URINE DRUG (IMMUNOASSAY) - COMPREHENSIVE DRUG SCREEN 2023-11-27 03:59:00 Leander [facility] POCT GLUCOSE (AUTOMATED) 2023-11-27 02:25:00 Lorenzo [facility] CT HEAD WO CONTRAST 2023-11-26 21:56:31 Leander [facility] MAGNESIUM 2023-11-26 21:32:00 Leander [facility] COMP. METABOLIC PANEL ([id number]) 2023-11-26 21:32:00 Leander [facility] POCT GLUCOSE (AUTOMATED) 2023-11-26 21:11:00 Lorenzo [facility] VALPROIC ACID, FREE 2023-11-26 18:07:00 Leander [facility] KEPPRA (LEVETIRACETAM) 2023-11-26 18:07:00 Leander [facility] LACTIC ACID WHOLE BLOOD 2023-11-26 18:07:00 Leander [facility] POCT GLUCOSE (AUTOMATED) 2023-11-26 17:05:00 Lorenzo [facility] MAGNESIUM 2023-11-26 13:28:00 Raghu [facility]ellanos [facility] VITAMIN B12, LEVEL 2023-11-26 13:28:00 Tabor [facility] FOLATE 2023-11-26 13:28:00 Leander [facility] COMP. METABOLIC PANEL ([id number]) 2023-11-26 13:28:00 Raghu Castellanos [facility] CBC WITH DIFF 2023-11-26 13:28:00 Leander [facility] LACTIC ACID WHOLE BLOOD 2023-11-26 09:52:00 Robinson Shin [facility] [place] POCT GLUCOSE (AUTOMATED) 2023-11-26 02:13:00 Lorenzo [facility] LACTIC ACID WHOLE BLOOD 2023-11-26 00:53:00 Raghu Castellanos [facility] ELECTROENCEPHALOGRAM 2023-11-26 00:00:00 Leander [facility] POCT GLUCOSE (AUTOMATED) 2023-11-25 20:59:00 Lorenzo [facility] LACTIC ACID WHOLE BLOOD 2023-11-25 20:56:00 Raghu Castellanos [facility] MAGNESIUM 2023-11-25 20:55:00 Raghu Castellanos [facility] COMP. METABOLIC PANEL ([id number]) 2023-11-25 20:55:00 Raghu Castellanos [facility] POCT GLUCOSE (AUTOMATED) 2023-11-25 16:58:00 Lorenzo [facility] POCT GLUCOSE (AUTOMATED) 2023-11-25 13:04:00 Lorenzo [facility] LACTIC ACID WHOLE BLOOD 2023-11-25 09:25:00 [facility]-25 09:24:00 Raghu Castellanos [facility] COMP. METABOLIC PANEL ([id number]) 2023-11-25 09:24:00 [facility]FF 2023-11-25 09:24:00 Tabor [facility] MAGNESIUM 2023-11-25 04:52:00 Tabor [facility] COMP. METABOLIC PANEL ([id number]) 2023-11-25 04:52:00 Tabor [facility] LACTIC ACID WHOLE BLOOD 2023-11-25 04:52:00 Leander [facility] POCT GLUCOSE (AUTOMATED) 2023-11-25 03:00:00 Lorenzo [facility] TROPONIN I 2023-11-25 02:59:00 Jessica [facility] COMP. METABOLIC PANEL ([id number]) 2023-11-25 02:59:00 Jessica [facility] HIV 1/2 AG-AB WITH REFLEX 2023-11-25 02:59:00 Jessica [facility] CT ABDOMEN PELVIS W CONTRAST 2023-11-24 22:24:00 Leander [facility] POCT GLUCOSE (AUTOMATED) 2023-11-24 21:21:00 Lorenzo [facility] MAGNESIUM 2023-11-24 21:08:00 Tabor [facility] COMP. METABOLIC PANEL ([id number]) 2023-11-24 21:08:00 Tabor [facility] LACTIC ACID WHOLE BLOOD 2023-11-24 21:08:00 Jessica [facility] POCT GLUCOSE (AUTOMATED) 2023-11-24 17:43:00 Lorenzo [facility] POCT GLUCOSE (AUTOMATED) 2023-11-24 17:43:00 Lorenzo Sheehanri, [facility] MAGNESIUM 2023-11-24 15:47:00 Tabor, [facility] COMP. METABOLIC PANEL ([id number]) 2023-11-24 15:47:00 Tabor, [facility] ACTIVATED PARTIAL THRMPLAS DAVID 2023-11-24 15:47:00 U[facility] LACTIC ACID WHOLE BLOOD 2023-11-24 15:47:00 Tabor, [facility] MAGNESIUM 2023-11-24 15:47:00 Tabor, [facility] COMP. METABOLIC PANEL ([id number]) 2023-11-24 15:47:00 Tabor, [facility] ACTIVATED PARTIAL THRMPLAS DAVID 2023-11-24 15:47:00 Uli [facility] LACTIC ACID WHOLE BLOOD 2023-11-24 15:47:00 Tabor, [facility] POCT GLUCOSE (AUTOMATED) 2023-11-24 12:33:00 Lorenzo Hemrosalie [facility] POCT GLUCOSE (AUTOMATED) 2023-11-24 12:33:00 Lorenzo [facility]rosal[facility] MAGNESIUM 2023-11-24 10:03:00 Tabor, [facility] COMP. METABOLIC PANEL ([id number]) 2023-11-24 10:03:00 Tabor, [facility] CBC WITH DIFF 2023-11-24 10:03:00 Tabor, [facility] LACTIC ACID WITH 3 HOUR REFLEX 2023-11-24 10:03:00 Tabor, [facility] MAGNESIUM 2023-11-24 10:03:00 Tabor, [facility] COMP. METABOLIC PANEL ([id number]) 2023-11-24 10:03:00 Tabor, [facility] CBC WITH DIFF 2023-11-24 10:03:00 Tabor, [facility] LACTIC ACID WITH 3 HOUR REFLEX 2023-11-24 10:03:00 Tabor, [facility] ACTIVATED PARTIAL THRMPLAS DAVID 2023-11-24 06:13:00 [facility] ACTIVATED PARTIAL THRMPLAS DAVID 2023-11-24 06:13:00 Cris Mcnally [facility] [place] POCT GLUCOSE (AUTOMATED) 2023-11-24 03:15:00 Lorenzo [facility] POCT GLUCOSE (AUTOMATED) 2023-11-24 03:15:00 Lorenzo [facility] ACTIVATED PARTIAL THRMPLAS DAVID 2023-11-23 23:09:00 [facility] 2023-11-23 23:09:00 [facility] POCT GLUCOSE (AUTOMATED) 2023-11-23 21:28:00 Lorenzo [facility] POCT GLUCOSE (AUTOMATED) 2023-11-23 21:28:00 Lorenzo [facility] CATH PROCEDURE LOG 2023-11-23 20:38:36 Lisandra [facility] CATH PROCEDURE LOG 2023-11-23 20:38:36 Lisandra [facility] CARDIAC CATHETERIZATION 2023-11-23 20:11:00 Lisandra [facility] CARDIAC CATHETERIZATION 2023-11-23 20:11:00 Lisandra [facility] CARDIAC CATHETERIZATION 2023-11-23 20:11:00 Lisandra [facility] CARDIAC CATHETERIZATION 2023-11-23 20:11:00 Lisandra [facility] POCT GLUCOSE (AUTOMATED) 2023-11-23 17:18:00 Lorenzo [facility] POCT GLUCOSE (AUTOMATED) 2023-11-23 17:18:00 Lorenzo Hemrosalie [facility] POCT GLUCOSE (AUTOMATED) 2023-11-23 16:50:00 Lorenzo [facility] POCT GLUCOSE (AUTOMATED) 2023-11-23 16:50:00 Lorenzo [facility] ACTIVATED PARTIAL THRMPLAS DAVID 2023-11-23 15:13:00 Uli Cris [facility] [place] ACTIVATED PARTIAL THRMPLAS DAVID 2023-11-23 15:13:00 [facility] LACTIC ACID WHOLE BLOOD 2023-11-23 15:12:00 Robinson Shin [facility] [place] LACTIC ACID WHOLE BLOOD 2023-11-23 15:12:00 [facility] ([facility]OMATED) 2023-11-23 12:47:00 Lorenzo [facility] POCT GLUCOSE (AUTOMATED) 2023-11-23 12:47:00 Lorenzo Hemrosalie [facility] MAGNESIUM 2023-11-23 07:52:00 Tyet [facility] HEPATIC FUNCTION PANEL ([id number]) (ALB,T.PRO,BILI T,BU/BC,ALT,AST,ALK PHOS) 2023-11-23 07:52:00 Tabor [facility] BASIC METABOLIC PANEL (NA, K , CL, CO2, GLUCOSE, BUN, CREATININE, CA) 2023-11-23 07:52:00 Khoot [facility] CBC WITH DIFF 2023-11-23 07:52:00 Khoot, [facility] ACTIVATED PARTIAL THRMPLAS DAVID 2023-11-23 07:52:00 Uli [facility] LACTIC ACID WHOLE BLOOD 2023-11-23 07:52:00 Robinson Shin [facility] [place] MAGNESIUM 2023-11-23 07:52:00 Khoot [facility] HEPATIC FUNCTION PANEL ([id number]) (ALB,T.PRO,BILI T,BU/BC,ALT,AST,ALK PHOS) 2023-11-23 07:52:00 Tabor [facility] BASIC METABOLIC PANEL (NA, K , CL, CO2, GLUCOSE, BUN, CREATININE, CA) 2023-11-23 07:52:00 Khoot [facility] CBC WITH DIFF 2023-11-23 07:52:00 Khoot [facility] ACTIVATED PARTIAL THRMPLAS DAVID 2023-11-23 07:52:00 Uli [facility] LACTIC ACID WHOLE BLOOD 2023-11-23 07:52:00 Robinson Shin [facility] [place] LACTIC ACID WHOLE BLOOD 2023-11-23 05:00:00 [facility]23-11-23 05:00:00 [facility] 2023-11-23 03:12:00 [facility]LOOD 2023-11-23 03:12:00 Aleida, [facility] LACTIC ACID WHOLE BLOOD 2023-11-23 00:57:00 Aleida [facility] LACTIC ACID WHOLE BLOOD 2023-11-23 00:57:00 Aleida [facility] POCT GLUCOSE (AUTOMATED) 2023-11-23 00:56:00 Lorenzo [facility] POCT GLUCOSE (AUTOMATED) 2023-11-23 00:56:00 Lorenzo [facility] LACTIC ACID WHOLE BLOOD 2023-11-22 23:49:00 [facility] 2023-11-22 23:49:00 Aleida [facility] POCT GLUCOSE (AUTOMATED) 2023-11-22 21:49:00 Lorenzo [facility] POCT GLUCOSE (AUTOMATED) 2023-11-22 21:49:00 Lorenzo [facility] LACTIC ACID WHOLE BLOOD 2023-11-22 21:41:00 Leander [facility] LACTIC ACID WHOLE BLOOD 2023-11-22 21:41:00 Leander [facility] POCT GLUCOSE (AUTOMATED) 2023-11-22 21:01:00 Lorenzo [facility] POCT GLUCOSE (AUTOMATED) 2023-11-22 21:01:00 Lorenzo [facility] ACTIVATED PARTIAL THRMPLAS DAVID 2023-11-22 19:46:00 Cris Mcnally [facility] [place] LACTIC ACID WHOLE BLOOD 2023-11-22 19:46:00 Leander [facility] ACTIVATED PARTIAL THRMPLAS DAVID 2023-11-22 19:46:00 [facility] LACTIC ACID WHOLE BLOOD 2023-11-22 19:46:00 Leander [facility] LACTIC ACID WHOLE BLOOD 2023-11-22 17:22:00 Faby [facility] LACTIC ACID WHOLE BLOOD 2023-11-22 17:22:00 Faby [facility] POCT GLUCOSE (AUTOMATED) 2023-11-22 17:00[facility] 2023-11-22 17:00:00 Madeline Pierre [facility] [place] LOWER EXTREMITY ARTERIAL DUPLEX BILATERAL - BY VASCULAR LAB 2023-11-22 16:43:47 Faby [facility] LOWER EXTREMITY ARTERIAL DUPLEX BILATERAL - BY VASCULAR LAB 2023-11-22 16:43:47 Faby [facility] TRANSTHORACIC ECHO (TTE) COMPLETE W/ CONTRAST 2023-11-22 15:50:00 [facility] TRANSTHORACIC ECHO (TTE) COMPLETE W/ CONTRAST 2023-11-22 15:50:00 Uli [facility] US ABDOMEN LIMITED 2023-11-22 14:54:18 Fbay [facility] US ABDOMEN LIMITED 2023-11-22 14:54:18 Faby [facility] HB ECG ROUTINE & RHYTHM STRIP 2023-11-22 14:28:42 Louise [facility] HB ECG ROUTINE & RHYTHM STRIP 2023-11-22 14:28:42 Louise [facility] COMP. METABOLIC PANEL ([id number]) 2023-11-22 14:26:00 [facility] IRON PANEL 2023-11-22 14:26:00 Uli [facility] LACTIC ACID WHOLE BLOOD 2023-11-22 14:26:00 Faby [facility] COMP. METABOLIC PANEL ([id number]) 2023-11-22 14:26:00 Uli [facility] IRON PANEL 2023-11-22 14:26:00 Uli [facility] LACTIC ACID WHOLE BLOOD 2023-11-22 14:26:00 Eric Hobbs [facility] [place] POCT GLUCOSE (AUTOMATED) 2023-11-22 13:26:00 Madeline Pierre [facility] [place] POCT GLUCOSE (AUTOMATED) 2023-11-22 13:26:00 Madeline Pierre [facility] [place] CT CHEST PULMONARY ANGIOGRAM 2023-11-22 13:10:36 [facility] CT CHEST PULMONARY ANGIOGRAM 2023-11-22 13:10:36 U[facility] PHOSPHORUS 2023-11-22 11:45:00 U[facility] CREATINE KINASE 2023-11-22 11:45:00 Janeth Gil [facility] [place] FERRITIN SERUM 2023-11-22 11:45:00 U[facility] TROPONIN I 2023-11-22 11:45:00 [facility] LIPID PANEL ([id number])(TOTAL CHOLESTEROL, TRIGLYCERIDES, HDL) 2023-11-22 11:45:00 [facility] CBC WITH DIFF 2023-11-22 11:45:00 [facility] GLYCOSYLATED HEMOGLOBIN (A1C) 2023-11-22 11:45:00 U[facility] PHOSPHORUS 2023-11-22 11:45:00 U[facility] CREATINE KINASE 2023-11-22 11:45:00 Janeth Gil [facility] [place] FERRITIN SERUM 2023-11-22 11:45:00 Uli [facility] TROPONIN I 2023-11-22 11:45:00 Uli [facility] LIPID PANEL ([id number])(TOTAL CHOLESTEROL, TRIGLYCERIDES, HDL) 2023-11-22 11:45:00 Uli [facility] CBC WITH DIFF 2023-11-22 11:45:00 [facility] GLYCOSYLATED HEMOGLOBIN (A1C) 2023-11-22 11:45:00 [facility] BLOOD CULTURE SCREEN 2023-11-22 09:37:00 Uli, [facility] BLOOD CULTURE SCREEN 2023-11-22 09:37:00 Uli, [facility] BLOOD CULTURE SCREEN 2023-11-22 09:36:00 Uli, [facility] BLOOD CULTURE SCREEN 2023-11-22 09:36:00 Uli, [facility] US LOWER EXTREMITY VEIN WITH COMPRESSION BILATERAL (ONLY FOR RULE OUT DVT) 2023-11-22 08:09:01 Uli [facility] US LOWER EXTREMITY VEIN WITH COMPRESSION BILATERAL (ONLY FOR RULE OUT DVT) 2023-11-22 08:09:01 U[facility] LACTIC ACID WHOLE BLOOD 2023-11-22 08:03:00 U[facility] LACTIC ACID WHOLE BLOOD 2023-11-22 08:03:00 U[facility] MAGNESIUM 2023-11-22 08:02:00 U[facility] TROPONIN I 2023-11-22 08:02:00 U[facility] PROTHROMBIN TIME / INR 2023-11-22 08:02:00 U[facility] D-DIMER 2023-11-22 08:02:00 Uli [facility] ACTIVATED PARTIAL THRMPLAS DAVID 2023-11-22 08:02:00 Uli [facility] PROCALCITONIN 2023-11-22 08:02:00 Uli [facility] MAGNESIUM 2023-11-22 08:02:00 Uli [facility] TROPONIN I 2023-11-22 08:02:00 Uli [facility] PROTHROMBIN TIME / INR 2023-11-22 08:02:00 U[facility] D-DIMER 2023-11-22 08:02:00 Uli [facility] ACTIVATED PARTIAL THRMPLAS DAVID 2023-11-22 08:02:00 Uli [facility] PROCALCITONIN 2023-11-22 08:02:00 U[facility] XR SHOULDER 2+ VW RIGHT 2023-11-22 07:33:00 [facility] XR SHOULDER 2+ VW RIGHT 2023-11-22 07:33:00 [facility] URINALYSIS 2023-11-22 04:33:00 Megan Rondon [facility] [place] URINE DRUG (IMMUNOASSAY) - COMPREHENSIVE DRUG SCREEN W/O REFLEX 2023-11-22 04:33:00 [facility]-22 04:33:00 Megan Rondon [facility] [place] URINE DRUG (IMMUNOASSAY) - COMPREHENSIVE DRUG SCREEN W/O REFLEX 2023-11-22 04:33:00 [facility] / INR 2023-11-22 04:25:00 [facility] ACTIVATED PARTIAL THRMPLAS DAVID 2023-11-22 04:25:00 [facility] PROT[facility] / INR 2023-11-22 04:25:00 [facility] ACTIVATED PARTIAL THRMPLAS DAVID 2023-11-22 04:25:00 [facility] 2023-11-22 04:18:14 [facility]23-11-22 04:18:14 [facility] T[facility] 2023-11-22 02:57:00 [facility] THYRO[facility]IM[facility]ATING HORMONE 2023-11-22 02:57:00 Megan Rondon [facility] [place] RAPID INFLUENZA A/B 2023-11-22 02:57:00 Megan Rondon [facility] [place] COVID-19 (ID NOW RAPID TESTING) 2023-11-22 02:57:00 Megan Rondon [facility] [place] LAB ONLY COVID INTERPRETATION 2023-11-22 02:57:00 Megan Rondon [facility] [place] FREE T4 2023-11-22 02:57:00 Megan Rondon [facility] [place] THYROID STIMULATING HORMONE 2023-11-22 02:57:00 [facility] RAP[facility]FLUENZA A/B 2023-11-22 02:57:00 Megan Rondon [facility] [place] COVID-19 (ID NOW RAPID TESTING) 2023-11-22 02:57:00 Megan Rondno [facility] [place] LAB ONLY COVID INTERPRETATION 2023-11-22 02:57:00 Megan Rondon [facility] [place] AMYLASE 2023-11-22 02:52:00 [facility] LIP[facility] 2023-11-22 02:52:00 [facility] TROPONIN I 2023-11-22 02:52:00 [facility] COMP. METABOLIC PANEL ([id number]) 2023-11-22 02:52:00 [facility] CBC WITH DIFF 2023-11-22 02:52:00 [facility] N-TERMINAL PRO-BNP 2023-11-22 02:52:00 [facility] AMYLASE 2023-11-22 02:52:00 [facility] LIPASE 2023-11-22 02:52:00 [facility] TROPONIN I 2023-11-22 02:52:00 [facility] COMP. METABOLIC PANEL ([id number]) 2023-11-22 02:52:00 [facility] CBC WITH DIFF 2023-11-22 02:52:00 [facility] N-TERMINAL PRO-BNP 2023-11-22 02:52:00 [facility]ST 1 VW 2023-11-22 02:34:13 [facility]ST 1 VW 2023-11-22 02:34:13 [facility] HB [facility] ROUTINE & RHYTHM STRIP 2023-11-22 02:16:24 [facility] POCT-GLUCOSE METER 2023-09-08 08:40:00 Edward Ferrer [facility] CBC W/PLT COUNT & AUTO DIFFERENTIAL 2023-09-08 04:16:00 Joshua Sharp [facility] BASIC METABOLIC PANEL 2023-09-08 04:16:00 Joshua Sharp [facility] MAGNESIUM 2023-09-08 04:16:00 Joshua Sharp [facility] PHOSPHORUS 2023-09-08 04:16:00 Joshua Sharp [facility] CBC W/PLT COUNT & AUTO DIFFERENTIAL 2023-09-08 [facility] 2023-09-07 21:29:00 Bud Sharp [facility] XR KNEE 3 VIEWS LEFT 2023-09-07 19:21:02 Bud Sharp [facility] VENOUS DOPPLER LEGS BILATERAL 2023-09-07 12:45:00 Joshua Sharp [facility] CBC W/PLT COUNT & AUTO DIFFERENTIAL 2023-09-07 03:17:00 Joshua Sharp [facility] BASIC METABOLIC PANEL 2023-09-07 03:17:00 Joshua Sharp [facility] MAGNESIUM 2023-09-07 03:17:00 Joshua Sharp [facility] PHOSPHORUS 2023-09-07 03:17:00 Joshua Sharp [facility] CBC W/PLT COUNT & AUTO DIFFERENTIAL 2023-09-07 03:17[facility]SE [facility]ER 2023-09-06 21:17:00 Bud Sharp [facility] POCT-GLUCOSE METER 2023-09-06 18:37:00 Bud Sharp [facility] POCT-GLUCOSE METER 2023-09-06 13:16:00 Bud Sharp [facility] POCT-GLUCOSE METER 2023-09-06 08:21:00 Bud Sharp [facility] CBC W/PLT COUNT & AUTO DIFFERENTIAL 2023-09-06 04:49:00 Joshua Sharp [facility] BASIC METABOLIC PANEL 2023-09-06 04:49:00 Joshua Sharp [facility] MAGNESIUM 2023-09-06 04:49:00 Joshua Sharp [facility] PHOSPHORUS 2023-09-06 04:49:00 Joshua Sharp [facility] CBC W/PLT COUNT & AUTO DIFFERENTIAL 2023-09-06 04:49:00 [facility]SE METER 2023-09-05 21:24:00 Bud Sharp [facility] MR BRAIN WITH & WITHOUT IV CONTRAST 2023-09-05 11:25:07 Tae Alemanna [facility] POCT-GLUCOSE METER 2023-09-05 08:10:00 Bud Sharp [facility] CBC W/PLT COUNT & AUTO DIFFERENTIAL 2023-09-05 04:44:00 Joshua Sharp [facility] BASIC METABOLIC PANEL 2023-09-05 04:44:00 Joshua Sharp [facility] MAGNESIUM 2023-09-05 04:44:00 [facility]23-09-05 04:44:00 [facility] POCT-GLUCOSE METER 2023-09-05 04:44:00 Lisandra Sharp [facility] CBC W/PLT COUNT & AUTO DIFFERENTIAL 2023-09-05 04:44:00 Joshua Sharp [facility] POCT-GLUCOSE METER 2023-09-04 21:38:00 [facility]UCOSE METER 2023-09-04 15:42:00 [facility] SARS-COV2/INFLUENZA/RSV RT-PCR 2023-09-04 11:25:00 Uli [facility] POCT-GLUCOSE METER 2023-09-04 10:53:00 Sabas [facility] POCT-GLUCOSE METER 2023-09-04 08:04:00 Sabas [facility] PROCALCITONIN 2023-09-04 06:56:00 Uli [facility] IRON, TIBC, % SAT. (WITHOUT FERRITIN) 2023-09-04 06:56:00 Uli [facility] FERRITIN 2023-09-04 06:56:00 Uli [facility] BLOOD CULTURE 2023-09-04 06:37:00 Randall, [facility] MR LUMBAR SPINE WITHOUT IV CONTRAST 2023-09-04 05:47:25 Melvi [facility] MR THORACIC SPINE WITHOUT IV CONTRAST 2023-09-04 04:53:00 Melvi [facility] MR CERVICAL SPINE WITHOUT IV CONTRAST 2023-09-04 04:18:[address] [facility] [address] THORACIC SPINE WITHOUT IV CONTRAST 2023-09-04 03:08:00 Randall [facility] CT LUMBAR SPINE WITHOUT IV CONTRAST 2023-09-04 03:08:00 Randall [facility] LACTIC ACID, VENOUS 2023-09-04 01:42:00 [facility] TYPE AND SCREEN, AUTOMATED 2023-09-04 01:42:00 [facility] CBC W/PLT COUNT & AUTO DIFFERENTIAL 2023-09-04 00:51:00 Melvi [facility] COMPREHENSIVE METABOLIC PANEL 2023-09-04 00:51:00 Melvi [facility] MAGNESIUM 2023-09-04 00:51:00 Melvi [facility] PHOSPHORUS 2023-09-04 00:51:00 Melvi [facility] PROTHROMBIN TIME/INR 2023-09-04 00:51:00 Melvi [facility] APTT 2023-09-04 00:51:00 Melvi [facility] B-TYPE NATRIURETIC FACTOR (BNP) 2023-09-04 00:51:00 Melvi [facility] URINALYSIS WITHOUT MICROSCOPIC 2023-09-04 00:51:00 Melvi [facility] RAPID DRUG SCREEN, URINE 2023-09-04 00:51:00 Melvi [facility] D-DIMER 2023-09-04 00:51:00 [place] [facility] FIBRINOGEN 2023-09-04 00:51:00 Jorge Pereira [facility] CBC W/PLT COUNT & AUTO DIFFERENTIAL 2023-09-04 00:51:00 [place] [facility] [facility] EKG-SCANNED 2023-09-04 00:00:00 Provider, Default Scanning [facility] LACTIC ACID WHOLE BLOOD 2023-08-12 20:31:00 [facility] COMP. METABOLIC PANEL ([id number]) 2023-08-12 20:29:00 [facility] CBC WITH DIFF 2023-08-12 20:29:00 [facility] [facility] CONSENT/REFUSAL FOR DIAGNOSI S AND TREATMENT 2023-08-12 19:43:16 Doctor Unassigned, [facility] TRANSESOPHAGEAL ECHO 2023-06-16 11:05:00 Torrey [facility] T SPOT TB 2023-06-15 04:51:00 Lauren Blair [facility] FUNGITELL R B-D-GLUCAN WITH REFLEX TO TITER 2023-06-15 04:51:00 Filiberto Blairwi Raul [facility] ASPERGILLUS GALACTOMANNAN ANTIGEN 2023-06-15 04:51:00 Filiberto Blairwi Raul [facility] VANCOMYCIN LEVEL, TROUGH 2023-06-15 04:51:00 Kaylene Mendosa [facility] T-SPOT(R).TB (QUEST) 2023-06-15 04:27:00 Provider, Not In System [facility] T-SPOT(R).TB (QUEST) 2023-06-15 04:27:00 System, Provider Not In [facility] ECHO W CONTRAST & DOPPLER 2023-06-14 09:22:00 [facility] HEMOGLOBIN A1C 2023-06-14 04:08:00 Marianela Burgess [facility] CBC (HEMOGRAM ONLY) 2023-06-14 04:08:00 [facility] BASIC METABOLIC PANEL 2023-06-14 04:08:00 [facility] CRYPTOCOCCAL ANTIGEN 2023-06-13 17:21:00 Rossy Filibertochucky Gonzalez [facility] HC LAB HIV-1 AG W/HIV-1&2 AB 2023-06-13 17:21:00 Rossy Filibertochucky Gonzalez [facility] VENOUS DOPPLER ARM, LEFT 2023-06-13 17:20:00 Marianela Burgess [facility] LEGIONELLA ANTIGEN, URINE 2023-06-13 17:00:00 [facility] SPUTUM CULTURE + GRAM STAIN 2023-06-13 14:33:00 [facility] MR LUMBAR SPINE WITH & WITHOUT IV CONTRAST 2023-06-13 13:03:47 Burt Nelson [facility] ECG 12-LEAD 2023-06-13 11:47:02 [facility] ECG 12-LEAD 2023-06-13 11:47:02 Unknown, [facility]7 [facility] ECG 12-LEAD 2023-06-13 11:47:02 Unknown, Hl7 [facility] MRSA SCREEN 2023-06-13 09:19:00 [facility] CBC W/PLT COUNT & AUTO DIFFERENTIAL 2023-06-13 06:03:00 Marianela Burgess [facility] COMPREHENSIVE METABOLIC PANEL 2023-06-13 06:03:00 Marianela Burgess [facility] PROTHROMBIN TIME/INR 2023-06-13 06:03:00 Marianela Burgess [facility] CREATINE KINASE (CK) 2023-06-13 06:03:00 [facility] CBC W/PLT COUNT & AUTO DIFFERENTIAL 2023-06-13 06:03:00 Marianela Burgess [facility] BLOOD CULTURE 2023-06-13 06:02:00 Marianela Burgess [facility] CBC W/PLT COUNT & AUTO DIFFERENTIAL 2023-06-02 04:41:00 Sunil Chu [facility] BASIC METABOLIC PANEL 2023-06-02 04:41:00 KimberleySunil osorio [facility] MAGNESIUM 2023-06-02 04:41:00 KimberleySunil guthrie [facility] PHOSPHORUS 2023-06-02 04:41:00 KimberleySunil [facility] CBC W/PLT COUNT & AUTO DIFFERENTIAL 2023-06-02 04:41:00 Kimberley Sunil Hanson [facility] XR SPINE LUMBAR 1 VIEW 2023-06-01 10:31:00 Jose [facility] XR SPINE LUMBAR 1 VIEW 2023-06-01 09:46:00 [facility] LAMINECTOMY, SPINE, LUMBAR 2023-06-01 09:10:00 [facility] PROCEDURE W/ C-ARM 2023-06-01 09:10:00 [facility] LAMINECTOMY, SPINE, LUMBAR 2023-06-01 07:30:00 [place] [facility] PROCEDURE W/ C-ARM 2023-06-01 07:30:00 [place] [facility] SCREEN, URINE 2023-06-01 04:33:00 [place] [facility] BASIC METABOLIC PANEL 2023-05-31 22:55:00 Dallas Gomez [facility] CBC W/PLT COUNT & AUTO DIFFERENTIAL 2023-05-31 22:55:00 Dallas Gomez [facility] PT/APTT 2023-05-31 22:55:00 Dallas Gomez [facility] CBC W/PLT COUNT & AUTO DIFFERENTIAL 2023-05-31 22:55:00 Dallas Gomez [facility] CT NECK SOFT TISSUE WITHOUT IV CONTRAST 2023-05-31 09:39:30 Omar [facility] TYPE AND SCREEN, AUTOMATED 2023-05-31 09:13:00 Burt Nelson [facility] BASIC METABOLIC PANEL 2023-05-29 06:43:00 Burt Nelson [facility] CBC W/PLT COUNT & AUTO DIFFERENTIAL 2023-05-29 06:43:00 Robmacoshi [facility] CBC W/PLT COUNT & AUTO DIFFERENTIAL 2023-05-29 06:43:[address] [facility] Burt [facility] XR SPINE CERVICAL 2 OR 3 VIEWS 2023-05-28 18:57:00 Omar [facility] FL FLUORO NON-SPECIFIC UP TO 1 HOUR 2023-05-28 10:48:00 Jose [facility] FL FLUORO NON-SPECIFIC UP TO 1 HOUR 2023-05-28 10:07:00 Jose [facility] DISCECTOMY, SPINE, CERVICAL, ANTERIOR APPROACH, WITH FUSION 2023-05-28 08:15:00 [facility] INSERTION, HARDWARE, SPINAL 2023-05-28 08:15:00 [place] [facility] PROCEDURE, ALLOGRAFT, FOR SPINE SURGERY 2023-05-28 08:15:00 [facility] AUTOGRAFT FOR SPINE SURGERY 2023-05-28 08:15:00 [place] Harshaw Adi [facility] PROCEDURE W/ C-ARM 2023-05-28 08:15:00 [place] [facility] NEUROPHYSIOLOGIC MONITORING, INTRAOPERATIVE 2023-05-28 08:15:00 [place] [facility] PROCEDURE, USING OPERATING MICROSCOPE 2023-05-28 08:15:00 [place] [facility] HCG, QUANTITATIVE, 2023-05-28 07:42:00 Yue Bui [facility] TYPE AND SCREEN, AUTOMATED 2023-05-28 07:42:00 Quin Scruggs [facility] XR CHEST 1 VIEW PORTABLE / BEDSIDE 2023-04-01 15:32:16 Thomas Lozoya [facility] B-TYPE NATRIURETIC FACTOR (BNP) 2023-04-01 13:32:00 Thomas Lozoya [facility] ECHO W CONTRAST & DOPPLER 2023-03-31 20:18:37 Zindani, [facility] MR CERVICAL SPINE WITHOUT IV CONTRAST 2023-03-31 09:25:00 Edward Lewis [facility] CBC (HEMOGRAM ONLY) 2023-03-31 03:45:00 Jasen [facility] COMPREHENSIVE METABOLIC PANEL 2023-03-31 03:45:00 [facility] D[facility] LEGS BILATERAL 2023-03-30 15:45:00 Jasen [facility] ARTERIAL (ALEISHA'S W/ DOPPLER) ONLY 2023-03-30 15:44:00 Jasen [facility] ECG 12-LEAD 2023-03-30 13:06:22 Jasen [facility] ECG 12-LEAD 2023-03-30 13:06:22 Unknown, Hl7 [facility] MR THORACIC SPINE WITHOUT IV CONTRAST 2023-03-30 12:29:58 Eric [facility] MR LUMBAR SPINE WITHOUT IV CONTRAST 2023-03-30 11:58:00 Eric [facility] EEG AWAKE AND DROWSY 2023-03-30 [facility] 2023-03-30 09:06:00 Berry [facility] URINALYSIS W/ REFLEX URINE CULTURE 2023-03-30 03:54:00 Eric [facility] CBC (HEMOGRAM ONLY) 2023-03-30 03:52:00 Jasen [facility] COMPREHENSIVE METABOLIC PANEL 2023-03-30 03:[facility] HEMOGLOBIN A1C 2023-03-30 03:52:00 [facility] PT/[facility]TT 2023-03-30 03:52:00 Thomas Lozoya [facility] EKG-SCANNED 2023-03-29 00:00:00 Provider, Default Scanning [facility] CT HEAD WO CONTRAST 2022-12-11 18:36:49 Alfonso Alvarado [facility] URINE DRUG (IMMUNOASSAY) - COMPREHENSIVE DRUG SCREEN 2022-12-11 17:13:00 Alfonso Alvarado Lorelei [facility] URINALYSIS 2022-12-11 17:13:00 Alfonso Alvarado [facility] CT CHEST PULMONARY ANGIOGRAM 2022-12-11 16:26:39 Alfonso Alvarado [facility] MAGNESIUM 2022-12-11 14:57:00 Alfonso Alvarado Lorelei [facility] COMP. METABOLIC PANEL ([id number]) 2022-12-11 14:57:00 Alfonso Alvarado [facility] D-DIMER 2022-12-11 14:15:00 Alfonso Alvarado [facility] XR CHEST 1 VW 2022-12-11 14:10:26 Alfonso Alvarado [facility] TROPONIN I 2022-12-11 14:02:00 Alfonso Alvarado [facility] CBC WITH DIFF 2022-12-11 14:02:00 Alfonso Alvarado [facility] N-TERMINAL PRO-BNP 2022-12-11 14:02:00 Alfonso Alvarado [facility] HB ECG ROUTINE & RHYTHM STRIP 2022-12-11 14:01:08 Alfonso Alvarado [facility] CONSENT/REFUSAL FOR DIAGNOSI S AND TREATMENT 2022-12-11 13:52:01 Doctor Unassigned, [facility] ECG 12-LEAD 2022-08-03 05:03:32 Unknown, Hl7 Doctor [facility] ECG 12-LEAD 2022-08-03 05:03:32 Unknown, Hl7 Doctor [facility] LIPID PANEL 2022-08-02 21:14:00 Campbell [facility] TSH/FREE T4 IF INDICATED 2022-08-02 21:14:00 Campbell [facility] VITAMIN B12 2022-08-02 21:14:00 Donaldo Hightower [facility] HEMOGLOBIN A1C 2022-08-02 21:14:00 Donaldo Hightower [facility] COMPREHENSIVE METABOLIC PANEL 2022-08-02 21:14:00 Hightower, [facility] CBC W/PLT COUNT & AUTO DIFFERENTIAL 2022-08-02 21:14:00 [place] [facility] RPR 2022-08-02 21:14:00 [place] [facility] HC LAB HIV-1 AG W/HIV-1&2 AB 2022-08-02 21:14:00 [facility] C-REACTIVE PROTEIN 2022-08-02 21:14:00 [place] [facility] CBC W/PLT COUNT & AUTO DIFFERENTIAL 2022-08-02 21:14:00 [place] [facility] EKG-SCANNED 2022-08-02 00:00:00 Provider, Default Scanning [facility] CT HEAD WO CONTRAST 2022-08-01 23:52:15 Dami Lowry [facility] GALV ONLY - INFLUENZA A B RS V PCR 2022-08-01 18:28:00 Letitia Chambers [facility] TRANSTHORACIC ECHO (TTE) COMPLETE W/ CONTRAST 2022-08-01 14:42:00 Kylee Montez [facility] MAGNESIUM 2022-08-01 10:42:00 Dami Lowry [facility] BASIC METABOLIC PANEL (NA, K , CL, CO2, GLUCOSE, BUN, CREATININE, CA) 2022-08-01 10:42:00 Essence Dami [facility] CBC WITH DIFF 2022-08-01 10:42:00 Essence [facility] N-TERMINAL PRO-BNP 2022-08-01 10:42:00 Kylee Montez [facility] POCT GLUCOSE (AUTOMATED) 2022-08-01 06:56:00 Dami Lowry [facility] CRITICAL CARE 2022-07-31 22:31:36 Alcon Megan [facility] URINALYSIS 2022-07-31 20:52:00 Alcon Megan [facility] URINE DRUG (IMMUNOASSAY) - COMPREHENSIVE DRUG SCREEN W/O REFLEX 2022-07-31 20:52:00 Megan Rondon [facility] XR CHEST 1 VW 2022-07-31 18:45:17 Megan Rondon [facility] LIPASE 2022-07-31 17:58:00 Megan Rondon [facility] TROPONIN I 2022-07-31 17:58:00 Megan Rondon [facility] COMP. METABOLIC PANEL ([id number]) 2022-07-31 17:58:00 Megan Rondon [facility] CBC WITH DIFF 2022-07-31 17:58:00 Megan Rondon [facility] PROTHROMBIN TIME / INR 2022-07-31 17:58:00 Megan Rondon [facility] ACTIVATED PARTIAL THRMPLAS DAVID 2022-07-31 17:58:00 [facility] 2022-07-31 17:58:00 Megan Rondon [facility] HB ECG ROUTINE & RHYTHM STRIP 2022-07-31 17:46:28 Megan Rondon [facility] NOTICE OF PRIVACY PRACTICES 2022-07-31 17:35:38 Doctor Unassigned, [place] CONSENT/REFUSAL FOR DIAGNOSI S AND TREATMENT 2022-07-31 17:35:13 Doctor Unassigned, [place] PHOSPHORUS 2022-05-08 05:51:00 Shefali Azeem [facility] MAGNESIUM 2022-05-08 05:51:00 Shefali [facility] BASIC METABOLIC PANEL (NA, K , CL, CO2, GLUCOSE, BUN, CREATININE, CA) 2022-05-08 05:51:00 Shefali Azeem [facility] CBC WITH DIFF 2022-05-08 05:51:00 Shefali [facility] BASIC METABOLIC PANEL (NA, K , CL, CO2, GLUCOSE, BUN, CREATININE, CA) 2022-05-07 07:09:00 John Cintron [facility] CBC WITH DIFF 2022-05-07 07:09:00 John Cintron [facility] POCT GLUCOSE (AUTOMATED) 2022-05-07 01:16:00 Brandyn Ibrahim [facility] HB ABO GROUPING 2022-05-06 05:07:00 [place] BAS[facility] MET[facility]OLIC PANEL (NA, K , CL, CO2, GLUCOSE, BUN, CREATININE, CA) 2022-05-06 05:04:00 Shefali [facility] CBC WITH DIFF 2022-05-06 05:04:00 Shefali [facility] KEPPRA (LEVETIRACETAM) 2022-05-06 05:04:00 Shefali [facility] MR LUMBAR SPINE WO CONTRAST 2022-05-06 02:54:37 Ender Monet [facility] ELECTROENCEPHALOGRAM 2022-05-06 00:00:00 John Cintron [facility] BASIC METABOLIC PANEL (NA, K , CL, CO2, GLUCOSE, BUN, CREATININE, CA) 2022-05-05 07:57:00 Ismael Dunn [facility] CBC WITH DIFF 2022-05-05 07:57:00 Ismael Dunn [facility] PROTHROMBIN TIME / INR 2022-05-05 07:57:00 Ismael Dunn [facility] ACTIVATED PARTIAL THRMPLAS DAVID 2022-05-05 07:57:00 Ismael Dunn [facility] FIBRINOGEN 2022-05-05 07:57:00 Ismael Dunn [facility] EMERGENCY SERVICES AGREEMENT S AND AUTHORIZATIONS 2022-05-04 05:01:00 Doctor Unassigned, [place] [facility] VITAMIN D, 25-OH 2022-04-15 16:53:00 Sen Toledo [facility] MR THORACIC SPINE WO CONTRAST 2022-04-15 11:56:19 Harshil [facility] MR CERVICAL SPINE WO CONTRAST 2022-04-15 11:20:00 Harshil [facility] BASIC METABOLIC PANEL (NA, K , CL, CO2, GLUCOSE, BUN, CREATININE, CA) 2022-04-15 10:36:00 Charmaine Morataya [facility] TEST, URINE 2022-04-15 04:39:00 Harshil Soumya [facility] URINE DRUG (IMMUNOASSAY) - COMPREHENSIVE DRUG SCREEN 2022-04-15 04:39:00 Harshil [facility] URINALYSIS 2022-04-15 04:39:00 Harshil [facility] TRANSTHORACIC ECHO (TTE) COMPLETE W/ CONTRAST 2022-04-14 16:37:03 Harshil [facility] KEPPRA (LEVETIRACETAM) 2022-04-14 15:30:00 Harshil [facility] MAGNESIUM 2022-04-14 10:03:00 Harshil [facility] BASIC METABOLIC PANEL (NA, K , CL, CO2, GLUCOSE, BUN, CREATININE, CA) 2022-04-14 10:03:00 Harshil [facility] MR LUMBAR SPINE WO CONTRAST 2022-04-14 02:48:12 Harshil [facility] MR STROKE BRAIN WO CONTRAST 2022-04-14 02:29:[address] [facility] [address] STROKE ANGIOGRAM HEAD 2022-04-13 18:40:00 Sapna Vargas [facility] CT STROKE ANGIOGRAM NECK 2022-04-13 18:40:00 Sapna Vargas [facility] CT STROKE HEAD WO CONTRAST 2022-04-13 18:36:00 Sapna Vargas [facility] TROPONIN I 2022-04-13 18:17:00 Sapna Vargas [facility] THYROID STIMULATING HORMONE 2022-04-13 18:17:00 Harshil [facility] BASIC METABOLIC PANEL (NA, K , CL, CO2, GLUCOSE, BUN, CREATININE, CA) 2022-04-13 18:17:00 Sapna Vargas [facility] LIPID PANEL ([id number])(TOTAL CHOLESTEROL, TRIGLYCERIDES, HDL) 2022-04-13 18:17:00 Harshil [facility] CBC WITHOUT DIFF 2022-04-13 18:17:00 Sapna Vargas [facility] GLYCOSYLATED HEMOGLOBIN (A1C) 2022-04-13 18:17:00 Harshil [facility] PROTHROMBIN TIME / INR 2022-04-13 18:17:00 Sapna Vargas [facility] ACTIVATED PARTIAL THRMPLAS DAVID 2022-04-13 18:17:00 Sapna Vargas [facility] COVID-19 (ID NOW RAPID TESTING) 2022-04-13 18:17:00 Sapna Vargas [facility] LAB ONLY COVID INTERPRETATION 2022-04-13 18:17:00 Sapna Vargas [facility] HB ECG ROUTINE & RHYTHM STRIP 2022-04-13 18:15:49 Sapna Vargas [facility] CONSENT/REFUSAL FOR DIAGNOSI S AND TREATMENT 2022-04-13 18:05:14 Doctor Unassigned, [place] HOSPITAL ADMISSION 2022-04-13 05:01:00 Doctor Unassigned, [place] [facility] SARS-COV-2 COVID-19 VACCINE 12 YRS+,0.3ML,IM ([facility]) 2022-02-19 15:21:12 Doctor Unassigned, [place] [facility] URINE DRUG (IMMUNOASSAY) - COMPREHENSIVE DRUG SCREEN W/O REFLEX 2021-11-23 21:21:00 Williams Virk [facility] CT HEAD WO CONTRAST 2021-11-23 20:58:00 Williams Virk [facility] POCT TEST 2021-11-23 20:46:00 Williams Virk [facility] URINALYSIS 2021-11-23 20:43:00 Williams Virk [facility] LIPASE 2021-11-23 20:27:00 Williams Virk [facility] TROPONIN I 2021-11-23 20:27:00 Williams Virk [facility] COMP. METABOLIC PANEL ([id number]) 2021-11-23 20:27:00 Williams Virk [facility] CBC WITH DIFF 2021-11-23 20:27:00 Williams Virk [facility] POCT GLUCOSE (AUTOMATED) 2021-11-23 20:15:00 Doctor Unassigned, [place] SARS-COV-2 COVID-19 VACCINE,0.3ML,IM (PFIZER) 2021-05-24 14:23:12 Doctor Unassigned, [place] SARS-COV-2 COVID-19 VACCINE,0.3ML,IM (PFIZER) 2021-05-03 14:59:29 Doctor Unassigned, [place] [facility] EMERGENCY SERVICES AGREEMENT S AND AUTHORIZATIONS 2021-04-16 05:01:00 Doctor Unassigned, [place] [facility] URINALYSIS 2021-03-17 03:09:00 Fabrice Chakraborty [facility] XR CHEST 1 VW 2021-03-17 01:45:07 Palmer [facility] TROPONIN I 2021-03-17 01:35:00 Palmer [facility] COMP. METABOLIC PANEL ([id number]) 2021-03-17 01:35:00 Palmer [facility] CBC WITH DIFF 2021-03-17 01:35:00 Palmer [facility] N-TERMINAL PRO-BNP 2021-03-17 01:35:00 Palmer [facility] COVID-19 (ID NOW RAPID TESTING) 2021-03-17 00:58:00 Mj Bryan [facility] CONSENT/REFUSAL FOR DIAGNOSI S AND TREATMENT 2021-03-17 00:32:59 Doctor Unassigned, [place] [facility] COVID-19 (ID NOW RAPID TESTING) 2021-02-19 17:04:00 Estefania Monroy [facility] CT ABDOMEN PELVIS W CONTRAST 2021-02-19 16:41:18 Estefania Monroy [facility] LIPASE 2021-02-19 15:58:00 Estefania Monroy [facility] COMP. METABOLIC PANEL ([id number]) 2021-02-19 15:58:00 Estefania Monroy [facility] CBC WITH DIFF 2021-02-19 15:58:00 Estefania Monroy [facility] URINALYSIS 2021-02-19 15:58:00 Estefania Monroy [facility] NOTICE OF PRIVACY PRACTICES 2021-02-19 15:30:46 Doctor Unassigned, [place] [facility] CONSENT/REFUSAL FOR DIAGNOSI S AND TREATMENT 2021-02-19 15:30:30 Doctor Unassigned, [place] [facility] Plan of Care Planned Activity Planned Date Details Comments Source Future Scheduled Test 2025-08-02 00:00:00 Lipid panel (procedure) [code = 84852243] [facility] Future Scheduled Test 2025-08-02 00:00:00 Lipid panel (procedure) [code = 20830710] [facility] Future Scheduled Test 2025-08-02 00:00:00 Lipid panel (procedure) [code = 82692626] [facility] Future Scheduled Test 2025-08-02 00:00:00 Lipid panel (procedure) [code = 88710533] [facility] Future Scheduled Test 2025-08-02 00:00:00 Lipid panel (procedure) [code = 70112363] [facility] Future Scheduled Test 2025-08-02 00:00:00 Lipid panel (procedure) [code = 02391989] [facility] Future Scheduled Test 2025-08-02 00:00:00 Lipid panel (procedure) [code = 34546082] [facility] Future Scheduled Test 2025-08-02 00:00:00 Lipid panel (procedure) [code = 63189506] [facility] Future Scheduled Test 2025-08-02 00:00:00 Lipid panel (procedure) [code = 19574096] [facility] Future Scheduled Test 2025-08-02 00:00:00 Lipid panel (procedure) [code = 49431024] [facility] Future Scheduled Test 2025-08-02 00:00:00 Lipid panel (procedure) [code = 02877310] [facility] Future Scheduled Test 2025-08-02 00:00:00 Lipid panel (procedure) [code = 26250248] [facility] Future Scheduled Test 2025-08-02 00:00:00 Lipid panel (procedure) [code = 36785581] [facility] Future Scheduled Test 2025-08-02 00:00:00 Lipid panel (procedure) [code = 61616711] [facility] Future Scheduled Test 2025-08-02 00:00:00 Lipid panel (procedure) [code = 08780073] [facility] Future Scheduled Test 2025-08-02 00:00:00 Lipid panel (procedure) [code = 87767890] [facility] Future Scheduled Test 2025-08-02 00:00:00 Lipid panel (procedure) [code = 53618457] [facility] Future Scheduled Test 2025-08-02 00:00:00 Lipid panel (procedure) [code = 25784339] [facility] Future Scheduled Test 2025-08-02 00:00:00 Lipid panel (procedure) [code = 27694970] [facility] Future Scheduled Test 2025-08-02 00:00:00 Lipid panel (procedure) [code = 67885754] [facility] Future Scheduled Test 2025-08-02 00:00:00 Lipid panel (procedure) [code = 65403648] [facility] Future Scheduled Test 2025-08-02 00:00:00 Lipid panel (procedure) [code = 15829534] [facility] Future Scheduled Test 2025-08-02 00:00:00 Lipid panel (procedure) [code = 62598552] [facility] Future Scheduled Test 2025-08-02 00:00:00 Lipid panel (procedure) [code = 68177366] [facility] Future Scheduled Test 2025-08-02 00:00:00 Lipid panel (procedure) [code = 91928017] [facility] Future Scheduled Test 2025-08-02 00:00:00 Lipid panel (procedure) [code = 43680776] [facility] Future Scheduled Test 2025-08-02 00:00:00 Lipid panel (procedure) [code = 32063626] [facility] Future Scheduled Test 2025-08-02 00:00:00 Lipid panel (procedure) [code = 63213168] [facility] Future Scheduled Test 2025-08-02 00:00:00 Lipid panel (procedure) [code = 53898414] [facility] Future Scheduled Test 2025-08-02 00:00:00 Lipid panel (procedure) [code = 72182349] [facility] Future Scheduled Test 2025-08-02 00:00:00 Lipid panel (procedure) [code = 43612662] [facility] Future Scheduled Test 2025-08-02 00:00:00 Lipid panel (procedure) [code = 52975300] [facility] Future Scheduled Test 2025-08-02 00:00:00 Lipid panel (procedure) [code = 68639064] [facility] Future Scheduled Test 2025-08-02 00:00:00 Lipid panel (procedure) [code = 82588614] [facility] Future Scheduled Test 2025-08-02 00:00:00 Lipid panel (procedure) [code = 77008927] [facility] Future Scheduled Test 2025-08-02 00:00:00 Lipid panel (procedure) [code = 41250232] [facility] Future Scheduled Test 2025-08-02 00:00:00 Lipid panel (procedure) [code = 02106054] [facility] Future Scheduled Test 2025-08-02 00:00:00 Lipid panel (procedure) [code = 38858770] [facility] Future Scheduled Test 2025-08-02 00:00:00 Lipid panel (procedure) [code = 32951304] [facility] Future Scheduled Test 2025-08-02 00:00:00 Lipid panel (procedure) [code = 43345821] [facility] Future Scheduled Test 2025-08-02 00:00:00 Lipid panel (procedure) [code = 75315707] [facility] Future Scheduled Test 2025-08-02 00:00:00 Lipid panel (procedure) [code = [id number]] [facility] Future Scheduled Test 2025-08-02 00:00:00 Lipid panel (procedure) [code = [id number]] [facility] Future Scheduled Test 2025-08-02 00:00:00 Lipid panel (procedure) [code = [id number]] [facility] Future Scheduled Test 2025-08-02 00:00:00 Lipid panel (procedure) [code = [id number]] [facility] Future Scheduled Test 2025-08-02 00:00:00 Lipid panel (procedure) [code = 76356375] [facility] Future Scheduled Test 2025-08-02 00:00:00 Lipid panel (procedure) [code = 14912274] [facility] Future Scheduled Test 2025-08-02 00:00:00 Lipid panel (procedure) [code = [id number]] [facility] Future Scheduled Test 2025-08-02 00:00:00 Lipid panel (procedure) [code = 19748501] [facility] Future Scheduled Test 2025-08-02 00:00:00 Lipid panel (procedure) [code = 90103420] [facility] Future Scheduled Test 2025-08-02 00:00:00 Lipid panel (procedure) [code = 35523634] [facility] Future Scheduled Test 2025-08-02 00:00:00 Lipid panel (procedure) [code = 08911491] [facility] Future Scheduled Test 2025-08-02 00:00:00 Lipid panel (procedure) [code = 63147663] [facility] Future Scheduled Test 2025-08-02 00:00:00 Lipid panel (procedure) [code = 95187585] [facility] Future Scheduled Test 2025-08-02 00:00:00 Lipid panel (procedure) [code = 87407069] [facility] Future Scheduled Test 2025-08-02 00:00:00 Lipid panel (procedure) [code = 42860707] [facility] Future Scheduled Test 2025-08-02 00:00:00 Lipid panel (procedure) [code = 22320993] [facility] Future Scheduled Test 2025-08-02 00:00:00 Lipid panel (procedure) [code = 82044579] [facility] Future Scheduled Test 2025-08-02 00:00:00 Lipid panel (procedure) [code = 25310569] [facility] Future Scheduled Test 2025-08-02 00:00:00 Lipid panel (procedure) [code = 23665802] [facility] Future Scheduled Test 2025-08-02 00:00:00 Lipid panel (procedure) [code = 58938354] [facility] Future Scheduled Test 2025-08-02 00:00:00 Lipid panel (procedure) [code = 58470485] [facility] Future Scheduled Test 2025-08-02 00:00:00 Lipid panel (procedure) [code = 26994822] [facility] Future Scheduled Test 2025-08-02 00:00:00 Lipid panel (procedure) [code = 98192943] [facility] Future Scheduled Test 2025-08-02 00:00:00 Lipid panel (procedure) [code = 95977884] [facility] Future Scheduled Test 2025-08-02 00:00:00 Lipid panel (procedure) [code = 82906656] [facility] Future Scheduled Test 2025-08-02 00:00:00 Lipid panel (procedure) [code = 86982960] [facility] Future Scheduled Test 2025-08-02 00:00:00 Lipid panel (procedure) [code = 86376897] [facility] Future Scheduled Test 2025-08-02 00:00:00 Lipid panel (procedure) [code = 52138796] [facility] Future Scheduled Test 2025-08-02 00:00:00 Lipid panel (procedure) [code = 11221689] [facility] Future Scheduled Test 2024-05-28 00:00:00 Tobacco Cessation Counseling and Screening (12+) [code = Tobacco Cessation Counseling and Screening (12+)] [facility] Future Scheduled Test 2024-05-28 00:00:00 Tobacco Cessation Counseling and Screening (12+) [code = Tobacco Cessation Counseling and Screening (12+)] [facility] Future Scheduled Test 2024-05-28 00:00:00 Tobacco Cessation Counseling and Screening (12+) [code = Tobacco Cessation Counseling and Screening (12+)] [facility] Future Scheduled Test 2024-05-28 00:00:00 Tobacco Cessation Counseling and Screening (12+) [code = Tobacco Cessation Counseling and Screening (12+)] [facility] Future Scheduled Test 2024-05-28 00:00:00 Tobacco Cessation Counseling and Screening (12+) [code = Tobacco Cessation Counseling and Screening (12+)] [facility] Future Scheduled Test 2024-05-28 00:00:00 Tobacco Cessation Counseling and Screening (12+) [code = Tobacco Cessation Counseling and Screening (12+)] [facility] Scheduled Test 2024-05-28 00:00:00 Tobacco Cessation Counseling and Screening (12+) [code = Tobacco Cessation Counseling and Screening (12+)] [facility] Scheduled Test 2024-05-28 00:00:00 Tobacco Cessation Counseling and Screening (12+) [code = Tobacco Cessation Counseling and Screening (12+)] [facility] Scheduled Test 2024-05-28 00:00:00 Tobacco Cessation Counseling and Screening (12+) [code = Tobacco Cessation Counseling and Screening (12+)] [facility] Scheduled Test 2024-05-28 00:00:00 Tobacco Cessation Counseling and Screening (12+) [code = Tobacco Cessation Counseling and Screening (12+)] [facility] Scheduled Test 2024-05-28 00:00:00 Tobacco Cessation Counseling and Screening (12+) [code = Tobacco Cessation Counseling and Screening (12+)] [facility] Scheduled Test 2024-05-28 00:00:00 Tobacco Cessation Counseling and Screening (12+) [code = Tobacco Cessation Counseling and Screening (12+)] [facility] Scheduled Test 2024-05-28 00:00:00 Tobacco Cessation Counseling and Screening (12+) [code = Tobacco Cessation Counseling and Screening (12+)] [facility] Future Scheduled Test 2024-05-28 00:00:00 Tobacco Cessation Counseling and Screening (12+) [code = Tobacco Cessation Counseling and Screening (12+)] [facility] Future Scheduled Test 2024-05-28 00:00:00 Tobacco Cessation Counseling and Screening (12+) [code = Tobacco Cessation Counseling and Screening (12+)] [facility] Scheduled Test 2024-05-28 00:00:00 Tobacco Cessation Counseling and Screening (12+) [code = Tobacco Cessation Counseling and Screening (12+)] [facility] Scheduled Test 2024-05-28 00:00:00 Tobacco Cessation Counseling and Screening (12+) [code = Tobacco Cessation Counseling and Screening (12+)] [facility] Future Scheduled Test 2024-05-28 00:00:00 Tobacco Cessation Counseling and Screening (12+) [code = Tobacco Cessation Counseling and Screening (12+)] [facility] Scheduled Test 2024-05-28 00:00:00 Tobacco Cessation Counseling and Screening (12+) [code = Tobacco Cessation Counseling and Screening (12+)] [facility] Scheduled Test 2024-05-28 00:00:00 Tobacco Cessation Counseling and Screening (12+) [code = Tobacco Cessation Counseling and Screening (12+)] [facility] Scheduled Test 2024-05-28 00:00:00 Tobacco Cessation Counseling and Screening (12+) [code = Tobacco Cessation Counseling and Screening (12+)] [facility] Scheduled Test 2024-05-28 00:00:00 Tobacco Cessation Counseling and Screening (12+) [code = Tobacco Cessation Counseling and Screening (12+)] [facility] Scheduled Test 2024-05-28 00:00:00 Tobacco Cessation Counseling and Screening (12+) [code = Tobacco Cessation Counseling and Screening (12+)] [facility] Scheduled Test 2024-05-28 00:00:00 Tobacco Cessation Counseling and Screening (12+) [code = Tobacco Cessation Counseling and Screening (12+)] [facility] Scheduled Test 2024-05-28 00:00:00 Tobacco Cessation Counseling and Screening (12+) [code = Tobacco Cessation Counseling and Screening (12+)] [facility] Scheduled Test 2024-05-28 00:00:00 Tobacco Cessation Counseling and Screening (12+) [code = Tobacco Cessation Counseling and Screening (12+)] [facility] Future Scheduled Test 2024-05-28 00:00:00 Tobacco Cessation Counseling and Screening (12+) [code = Tobacco Cessation Counseling and Screening (12+)] [facility] Scheduled Test 2024-05-28 00:00:00 Tobacco Cessation Counseling and Screening (12+) [code = Tobacco Cessation Counseling and Screening (12+)] [facility] Scheduled Test 2024-05-28 00:00:00 Tobacco Cessation Counseling and Screening (12+) [code = Tobacco Cessation Counseling and Screening (12+)] [facility] Future Scheduled Test 2024-05-28 00:00:00 Tobacco Cessation Counseling and Screening (12+) [code = Tobacco Cessation Counseling and Screening (12+)] [facility] Scheduled Test 2024-05-28 00:00:00 Tobacco Cessation Counseling and Screening (12+) [code = Tobacco Cessation Counseling and Screening (12+)] [facility] Scheduled Test 2024-05-28 00:00:00 Tobacco Cessation Counseling and Screening (12+) [code = Tobacco Cessation Counseling and Screening (12+)] [facility] Scheduled Test 2024-05-28 00:00:00 Tobacco Cessation Counseling and Screening (12+) [code = Tobacco Cessation Counseling and Screening (12+)] [facility] Scheduled Test 2024-05-28 00:00:00 Tobacco Cessation Counseling and Screening (12+) [code = Tobacco Cessation Counseling and Screening (12+)] [facility] Scheduled Test 2024-05-28 00:00:00 Tobacco Cessation Counseling and Screening (12+) [code = Tobacco Cessation Counseling and Screening (12+)] [facility] Scheduled Test 2024-05-28 00:00:00 Tobacco Cessation Counseling and Screening (12+) [code = Tobacco Cessation Counseling and Screening (12+)] [facility] Scheduled Test 2024-05-28 00:00:00 Tobacco Cessation Counseling and Screening (12+) [code = Tobacco Cessation Counseling and Screening (12+)] [facility] Scheduled Test 2024-05-28 00:00:00 Tobacco Cessation Counseling and Screening (12+) [code = Tobacco Cessation Counseling and Screening (12+)] [facility] Scheduled Test 2024-05-28 00:00:00 Tobacco Cessation Counseling and Screening (12+) [code = Tobacco Cessation Counseling and Screening (12+)] [facility] Scheduled Test 2024-05-28 00:00:00 Tobacco Cessation Counseling and Screening (12+) [code = Tobacco Cessation Counseling and Screening (12+)] [facility] Scheduled Test 2024-05-28 00:00:00 Tobacco Cessation Counseling and Screening (12+) [code = Tobacco Cessation Counseling and Screening (12+)] [facility] Future Scheduled Test 2024-05-28 00:00:00 Tobacco Cessation Counseling and Screening (12+) [code = Tobacco Cessation Counseling and Screening (12+)] [facility] Future Scheduled Test 2024-05-28 00:00:00 Tobacco Cessation Counseling and Screening (12+) [code = Tobacco Cessation Counseling and Screening (12+)] [facility] Future Scheduled Test 2024-05-28 00:00:00 Tobacco Cessation Counseling and Screening (12+) [code = Tobacco Cessation Counseling and Screening (12+)] [facility] Future Scheduled Test 2024-05-28 00:00:00 Tobacco Cessation Counseling and Screening (12+) [code = Tobacco Cessation Counseling and Screening (12+)] [facility] Scheduled Test 2024-05-26 00:00:00 Tobacco Cessation Counseling and Screening (12+) [code = Tobacco Cessation Counseling and Screening (12+)] [facility] Scheduled Test 2024-05-26 00:00:00 Tobacco Cessation Counseling and Screening (12+) [code = Tobacco Cessation Counseling and Screening (12+)] [facility] Scheduled Test 2024-03-20 00:00:00 Influenza Vaccine (Season Ended) [code = Influenza Vaccine (Season Ended)] [facility] Scheduled Test 2024-03-20 00:00:00 Influenza Vaccine (Season Ended) [code = Influenza Vaccine (Season Ended)] [facility] Future Scheduled Test 2024-03-20 00:00:00 Influenza Vaccine (Season Ended) [code = Influenza Vaccine (Season Ended)] [facility] Scheduled Test 2024-03-20 00:00:00 Influenza Vaccine (Season Ended) [code = Influenza Vaccine (Season Ended)] [facility] Scheduled Test 2024-03-20 00:00:00 Influenza Vaccine (Season Ended) [code = Influenza Vaccine (Season Ended)] [facility] Future Scheduled Test 2024-03-20 00:00:00 Influenza Vaccine (Season Ended) [code = Influenza Vaccine (Season Ended)] [facility] Future Scheduled Test 2024-03-20 00:00:00 Influenza Vaccine (Season Ended) [code = Influenza Vaccine (Season Ended)] [facility] Scheduled Test 2024-03-20 00:00:00 Influenza Vaccine (Season Ended) [code = Influenza Vaccine (Season Ended)] [facility] Scheduled Test 2024-03-20 00:00:00 Influenza Vaccine (Season Ended) [code = Influenza Vaccine (Season Ended)] [facility] Future Scheduled Test 2024-03-20 00:00:00 Influenza Vaccine (Season Ended) [code = Influenza Vaccine (Season Ended)] [facility] Future Scheduled Test 2023-07-20 00:00:00 DEPRESSION SCREENING (12+) [code = DEPRESSION SCREENING (12+)] [facility] Future Scheduled Test 2023-07-20 00:00:00 DEPRESSION SCREENING (12+) [code = DEPRESSION SCREENING (12+)] [facility] Future Scheduled Test 2023-07-20 00:00:00 DEPRESSION SCREENING (12+) [code = DEPRESSION SCREENING (12+)] [facility] Future Scheduled Test 2023-07-20 00:00:00 DEPRESSION SCREENING (12+) [code = DEPRESSION SCREENING (12+)] [facility] Future Scheduled Test 2023-07-20 00:00:00 DEPRESSION SCREENING (12+) [code = DEPRESSION SCREENING (12+)] [facility] Future Scheduled Test 2023-07-20 00:00:00 DEPRESSION SCREENING (12+) [code = DEPRESSION SCREENING (12+)] [facility] Future Scheduled Test 2023-07-20 00:00:00 DEPRESSION SCREENING (12+) [code = DEPRESSION SCREENING (12+)] [facility] Future Scheduled Test 2023-07-20 00:00:00 DEPRESSION SCREENING (12+) [code = DEPRESSION SCREENING (12+)] [facility] Scheduled Test 2023-07-20 00:00:00 DEPRESSION SCREENING (12+) [code = DEPRESSION SCREENING (12+)] [facility] Future Scheduled Test 2023-07-20 00:00:00 DEPRESSION SCREENING (12+) [code = DEPRESSION SCREENING (12+)] [facility] Future Scheduled Test 2023-07-20 00:00:00 DEPRESSION SCREENING (12+) [code = DEPRESSION SCREENING (12+)] [facility] Scheduled Test 2023-07-20 00:00:00 DEPRESSION SCREENING (12+) [code = DEPRESSION SCREENING (12+)] [facility] Future Scheduled Test 2023-07-20 00:00:00 DEPRESSION SCREENING (12+) [code = DEPRESSION SCREENING (12+)] [facility] Scheduled Test 2023-07-20 00:00:00 DEPRESSION SCREENING (12+) [code = DEPRESSION SCREENING (12+)] [facility] Future Scheduled Test 2023-07-20 00:00:00 DEPRESSION SCREENING (12+) [code = DEPRESSION SCREENING (12+)] [facility] Future Scheduled Test 2023-07-20 00:00:00 DEPRESSION SCREENING (12+) [code = DEPRESSION SCREENING (12+)] [facility] Future Scheduled Test 2023-07-20 00:00:00 DEPRESSION SCREENING (12+) [code = DEPRESSION SCREENING (12+)] [facility] Future Scheduled Test 2023-07-20 00:00:00 DEPRESSION SCREENING (12+) [code = DEPRESSION SCREENING (12+)] [facility] Future Scheduled Test 2023-07-20 00:00:00 DEPRESSION SCREENING (12+) [code = DEPRESSION SCREENING (12+)] [facility] Future Scheduled Test 2023-07-20 00:00:00 DEPRESSION SCREENING (12+) [code = DEPRESSION SCREENING (12+)] [facility] Future Scheduled Test 2023-07-20 00:00:00 DEPRESSION SCREENING (12+) [code = DEPRESSION SCREENING (12+)] [facility] Future Scheduled Test 2023-07-20 00:00:00 DEPRESSION SCREENING (12+) [code = DEPRESSION SCREENING (12+)] [facility] Future Scheduled Test 2023-07-20 00:00:00 DEPRESSION SCREENING (12+) [code = DEPRESSION SCREENING (12+)] [facility] Future Scheduled Test 2023-07-20 00:00:00 DEPRESSION SCREENING (12+) [code = DEPRESSION SCREENING (12+)] [facility] Future Scheduled Test 2023-07-20 00:00:00 DEPRESSION SCREENING (12+) [code = DEPRESSION SCREENING (12+)] [facility] Future Scheduled Test 2023-07-20 00:00:00 DEPRESSION SCREENING (12+) [code = DEPRESSION SCREENING (12+)] [facility] Future Scheduled Test 2023-07-20 00:00:00 DEPRESSION SCREENING (12+) [code = DEPRESSION SCREENING (12+)] [facility] Future Scheduled Test 2023-07-20 00:00:00 DEPRESSION SCREENING (12+) [code = DEPRESSION SCREENING (12+)] [facility] Future Scheduled Test 2023-07-20 00:00:00 DEPRESSION SCREENING (12+) [code = DEPRESSION SCREENING (12+)] [facility] Future Scheduled Test 2023-07-20 00:00:00 DEPRESSION SCREENING (12+) [code = DEPRESSION SCREENING (12+)] [facility] Future Scheduled Test 2023-07-20 00:00:00 DEPRESSION SCREENING (12+) [code = DEPRESSION SCREENING (12+)] [facility] Scheduled Test 2023-07-20 00:00:00 DEPRESSION SCREENING (12+) [code = DEPRESSION SCREENING (12+)] [facility] Scheduled Test 2023-07-20 00:00:00 DEPRESSION SCREENING (12+) [code = DEPRESSION SCREENING (12+)] [facility] Scheduled Test 2023-07-20 00:00:00 DEPRESSION SCREENING (12+) [code = DEPRESSION SCREENING (12+)] [facility] Scheduled Test 2023-07-20 00:00:00 DEPRESSION SCREENING (12+) [code = DEPRESSION SCREENING (12+)] [facility] Scheduled Test 2023-07-20 00:00:00 DEPRESSION SCREENING (12+) [code = DEPRESSION SCREENING (12+)] [facility] Scheduled Test 2023-07-20 00:00:00 DEPRESSION SCREENING (12+) [code = DEPRESSION SCREENING (12+)] [facility] Scheduled Test 2023-03-20 00:00:00 INFLUENZA VACCINE (Season Ended) [code = INFLUENZA VACCINE (Season Ended)] [facility] Scheduled Test 2023-03-20 00:00:00 INFLUENZA VACCINE (Season Ended) [code = INFLUENZA VACCINE (Season Ended)] [facility] Scheduled Test 2023-03-20 00:00:00 INFLUENZA VACCINE (Season Ended) [code = INFLUENZA VACCINE (Season Ended)] [facility] Scheduled Test 2023-03-20 00:00:00 INFLUENZA VACCINE (Season Ended) [code = INFLUENZA VACCINE (Season Ended)] [facility] Scheduled Test 2023-03-20 00:00:00 INFLUENZA VACCINE (Season Ended) [code = INFLUENZA VACCINE (Season Ended)] [facility] Scheduled Test 2023-03-20 00:00:00 INFLUENZA VACCINE (Season Ended) [code = INFLUENZA VACCINE (Season Ended)] [facility] Scheduled Test 2023-03-20 00:00:00 Influenza Vaccine (Season Ended) [code = Influenza Vaccine (Season Ended)] [facility] Scheduled Test 2023-03-20 00:00:00 Influenza Vaccine (Season Ended) [code = Influenza Vaccine (Season Ended)] [facility] Scheduled Test 2023-03-20 00:00:00 Influenza Vaccine (#1) [code = Influenza Vaccine (#1)] [facility] Scheduled Test 2023-03-20 00:00:00 Influenza Vaccine (#1) [code = Influenza Vaccine (#1)] [facility] Scheduled Test 2023-03-20 00:00:00 Influenza Vaccine (#1) [code = Influenza Vaccine (#1)] [facility] Scheduled Test 2023-03-20 00:00:00 Influenza Vaccine (#1) [code = Influenza Vaccine (#1)] [facility] Scheduled Test 2023-03-20 00:00:00 COVID-19 VACCINE ( season) [code = COVID-19 VACCINE ( season)] [facility] Scheduled Test 2023-03-20 00:00:00 Influenza Vaccine (#1) [code = Influenza Vaccine (#1)] [facility] Scheduled Test 2023-03-20 00:00:00 COVID-19 VACCINE ( season) [code = COVID-19 VACCINE ( season)] [facility] Scheduled Test 2023-03-20 00:00:00 Influenza Vaccine (#1) [code = Influenza Vaccine (#1)] [facility] Scheduled Test 2023-03-20 00:00:00 COVID-19 VACCINE ( season) [code = COVID-19 VACCINE ()] [facility] Scheduled Test 2023-03-20 00:00:00 Influenza Vaccine (#1) [code = Influenza Vaccine (#1)] [facility] Scheduled Test 2023-03-20 00:00:00 COVID-19 VACCINE () [code = COVID-19 VACCINE ()] [facility] Scheduled Test 2023-03-20 00:00:00 Influenza Vaccine (#1) [code = Influenza Vaccine (#1)] [facility] Scheduled Test 2023-03-20 00:00:00 Influenza Vaccine (#1) [code = Influenza Vaccine (#1)] [facility] Scheduled Test 2023-03-20 00:00:00 COVID-19 VACCINE () [code = COVID-19 VACCINE ()] [facility] Scheduled Test 2023-03-20 00:00:00 Influenza Vaccine (#1) [code = Influenza Vaccine (#1)] [facility] Scheduled Test 2023-03-20 00:00:00 COVID-19 VACCINE ( season) [code = COVID-19 VACCINE ()] [facility] Scheduled Test 2023-03-20 00:00:00 Influenza Vaccine (#1) [code = Influenza Vaccine (#1)] [facility] Scheduled Test 2023-03-20 00:00:00 COVID-19 VACCINE () [code = COVID-19 VACCINE ( season)] [facility] Scheduled Test 2023-03-20 00:00:00 Influenza Vaccine (#1) [code = Influenza Vaccine (#1)] [facility] Scheduled Test 2023-03-20 00:00:00 COVID-19 VACCINE ( season) [code = COVID-19 VACCINE ( season)] [facility] Scheduled Test 2023-03-20 00:00:00 Influenza Vaccine (#1) [code = Influenza Vaccine (#1)] [facility] Scheduled Test 2023-03-20 00:00:00 COVID-19 VACCINE ( season) [code = COVID-19 VACCINE ()] [facility] Scheduled Test 2023-03-20 00:00:00 Influenza Vaccine (#1) [code = Influenza Vaccine (#1)] [facility] Scheduled Test 2023-03-20 00:00:00 COVID-19 VACCINE () [code = COVID-19 VACCINE ()] [facility] Scheduled Test 2023-03-20 00:00:00 Influenza Vaccine (#1) [code = Influenza Vaccine (#1)] [facility] Scheduled Test 2023-03-20 00:00:00 COVID-19 VACCINE ( season) [code = COVID-19 VACCINE ()] [facility] Scheduled Test 2023-03-20 00:00:00 Influenza Vaccine (#1) [code = Influenza Vaccine (#1)] [facility] Scheduled Test 2023-03-20 00:00:00 Influenza Vaccine (#1) [code = Influenza Vaccine (#1)] [facility] Scheduled Test 2023-03-20 00:00:00 COVID-19 VACCINE ( season) [code = COVID-19 VACCINE ()] [facility] Scheduled Test 2023-03-20 00:00:00 Influenza Vaccine (#1) [code = Influenza Vaccine (#1)] [facility] Scheduled Test 2023-03-20 00:00:00 COVID-19 VACCINE ( season) [code = COVID-19 VACCINE ( season)] [facility] Scheduled Test 2023-03-20 00:00:00 Influenza Vaccine (#1) [code = Influenza Vaccine (#1)] [facility] Scheduled Test 2023-03-20 00:00:00 COVID-19 VACCINE ( season) [code = COVID-19 VACCINE ()] [facility] Scheduled Test 2023-03-20 00:00:00 Influenza Vaccine (#1) [code = Influenza Vaccine (#1)] [facility] Scheduled Test 2023-03-20 00:00:00 COVID-19 VACCINE () [code = COVID-19 VACCINE ()] [facility] Scheduled Test 2023-03-20 00:00:00 Influenza Vaccine (#1) [code = Influenza Vaccine (#1)] [facility] Scheduled Test 2023-03-20 00:00:00 COVID-19 VACCINE () [code = COVID-19 VACCINE ()] [facility] Scheduled Test 2023-03-20 00:00:00 Influenza Vaccine (#1) [code = Influenza Vaccine (#1)] [facility] Scheduled Test 2023-03-20 00:00:00 COVID-19 VACCINE ( season) [code = COVID-19 VACCINE ( season)] [facility] Scheduled Test 2023-03-20 00:00:00 Influenza Vaccine (#1) [code = Influenza Vaccine (#1)] [facility] Scheduled Test 2023-03-20 00:00:00 Influenza Vaccine (#1) [code = Influenza Vaccine (#1)] [facility] Scheduled Test 2023-03-20 00:00:00 COVID-19 VACCINE ( season) [code = COVID-19 VACCINE ( season)] [facility] Scheduled Test 2023-03-20 00:00:00 Influenza Vaccine (#1) [code = Influenza Vaccine (#1)] [facility] Scheduled Test 2023-03-20 00:00:00 COVID-19 VACCINE ( season) [code = COVID-19 VACCINE ( season)] [facility] Scheduled Test 2023-03-20 00:00:00 Influenza Vaccine (#1) [code = Influenza Vaccine (#1)] [facility] Future Scheduled Test 2023-03-20 00:00:00 COVID-19 VACCINE ( season) [code = COVID-19 VACCINE ()] [facility] Scheduled Test 2023-03-20 00:00:00 Influenza Vaccine (#1) [code = Influenza Vaccine (#1)] [facility] Scheduled Test 2023-03-20 00:00:00 COVID-19 VACCINE ( season) [code = COVID-19 VACCINE ( season)] [facility] Scheduled Test 2023-03-20 00:00:00 Influenza Vaccine (#1) [code = Influenza Vaccine (#1)] [facility] Scheduled Test 2023-03-20 00:00:00 Influenza Vaccine (#1) [code = Influenza Vaccine (#1)] [facility] Scheduled Test 2023-03-20 00:00:00 COVID-19 VACCINE ( season) [code = COVID-19 VACCINE ( season)] [facility] Scheduled Test 2023-03-20 00:00:00 Influenza Vaccine (#1) [code = Influenza Vaccine (#1)] [facility] Scheduled Test 2023-03-20 00:00:00 COVID-19 VACCINE ( season) [code = COVID-19 VACCINE ( season)] [facility] Scheduled Test 2023-03-20 00:00:00 Influenza Vaccine (#1) [code = Influenza Vaccine (#1)] [facility] Scheduled Test 2023-03-20 00:00:00 COVID-19 VACCINE ( season) [code = COVID-19 VACCINE ()] [facility] Scheduled Test 2023-03-20 00:00:00 Influenza Vaccine (#1) [code = Influenza Vaccine (#1)] [facility] Scheduled Test 2023-03-20 00:00:00 COVID-19 VACCINE ( season) [code = COVID-19 VACCINE ()] [facility] Scheduled Test 2023-03-20 00:00:00 Influenza Vaccine (#1) [code = Influenza Vaccine (#1)] [facility] Scheduled Test 2023-03-20 00:00:00 COVID-19 VACCINE ( season) [code = COVID-19 VACCINE ()] [facility] Scheduled Test 2023-03-20 00:00:00 Influenza Vaccine (#1) [code = Influenza Vaccine (#1)] [facility] Scheduled Test 2023-03-20 00:00:00 COVID-19 VACCINE ( season) [code = COVID-19 VACCINE ()] [facility] Scheduled Test 2023-03-20 00:00:00 Influenza Vaccine (#1) [code = Influenza Vaccine (#1)] [facility] Scheduled Test 2023-03-20 00:00:00 Influenza Vaccine (#1) [code = Influenza Vaccine (#1)] [facility] Scheduled Test 2023-03-20 00:00:00 COVID-19 VACCINE ( season) [code = COVID-19 VACCINE ()] [facility] Scheduled Test 2023-03-20 00:00:00 Influenza Vaccine (#1) [code = Influenza Vaccine (#1)] [facility] Scheduled Test 2023-03-20 00:00:00 COVID-19 VACCINE ( season) [code = COVID-19 VACCINE ( season)] [facility] Scheduled Test 2023-03-20 00:00:00 Influenza Vaccine (#1) [code = Influenza Vaccine (#1)] [facility] Scheduled Test 2023-03-20 00:00:00 COVID-19 VACCINE ( season) [code = COVID-19 VACCINE ()] [facility] Scheduled Test 2023-03-20 00:00:00 COVID-19 VACCINE () [code = COVID-19 VACCINE ()] [facility] Scheduled Test 2023-03-20 00:00:00 COVID-19 VACCINE () [code = COVID-19 VACCINE ()] [facility] Scheduled Test 2023-03-20 00:00:00 COVID-19 VACCINE () [code = COVID-19 VACCINE ()] [facility] Scheduled Test 2023-03-20 00:00:00 COVID-19 VACCINE ( season) [code = COVID-19 VACCINE ()] [facility] Scheduled Test 2023-03-20 00:00:00 COVID-19 VACCINE ( season) [code = COVID-19 VACCINE ()] [facility] Scheduled Test 2023-03-20 00:00:00 Influenza Vaccine (#1) [code = Influenza Vaccine (#1)] [facility] Scheduled Test 2023-03-20 00:00:00 COVID-19 VACCINE () [code = COVID-19 VACCINE ()] [facility] Scheduled Test 2023-03-20 00:00:00 COVID-19 VACCINE ( season) [code = COVID-19 VACCINE ()] [facility] Scheduled Test 2023-03-20 00:00:00 COVID-19 VACCINE ( season) [code = COVID-19 VACCINE ()] [facility] Scheduled Test 2023-03-20 00:00:00 COVID-19 VACCINE ( season) [code = COVID-19 VACCINE ()] [facility] Scheduled Test 2023-03-20 00:00:00 Influenza Vaccine (#1) [code = Influenza Vaccine (#1)] [facility] Scheduled Test 2023-03-20 00:00:00 Influenza Vaccine (#1) [code = Influenza Vaccine (#1)] [facility] Scheduled Test 2023-03-20 00:00:00 Influenza Vaccine (#1) [code = Influenza Vaccine (#1)] [facility] Scheduled Test 2023-03-20 00:00:00 Influenza Vaccine (#1) [code = Influenza Vaccine (#1)] [facility] Scheduled Test 2023-03-20 00:00:00 Influenza Vaccine (#1) [code = Influenza Vaccine (#1)] [facility] Scheduled Test 2023-03-20 00:00:00 Influenza Vaccine (#1) [code = Influenza Vaccine (#1)] [facility] Scheduled Test 2023-03-20 00:00:00 Influenza Vaccine (#1) [code = Influenza Vaccine (#1)] [facility] Scheduled Test 2023-03-20 00:00:00 Influenza Vaccine (#1) [code = Influenza Vaccine (#1)] [facility] Scheduled Test 2023-03-20 00:00:00 Influenza Vaccine (#1) [code = Influenza Vaccine (#1)] [facility] Scheduled Test 2023-03-20 00:00:00 COVID-19 VACCINE ( season) [code = COVID-19 VACCINE ( season)] [facility] Scheduled Test 2022-07-20 00:00:00 DEPRESSION SCREENING (12+) [code = DEPRESSION SCREENING (12+)] [facility] Scheduled Test 2022-07-20 00:00:00 DEPRESSION SCREENING (12+) [code = DEPRESSION SCREENING (12+)] [facility] Scheduled Test 2022-07-20 00:00:00 DEPRESSION SCREENING (12+) [code = DEPRESSION SCREENING (12+)] [facility] Scheduled Test 2022-07-20 00:00:00 DEPRESSION SCREENING (12+) [code = DEPRESSION SCREENING (12+)] [facility] Scheduled Test 2022-07-20 00:00:00 DEPRESSION SCREENING (12+) [code = DEPRESSION SCREENING (12+)] [facility] Scheduled Test 2022-07-20 00:00:00 DEPRESSION SCREENING (12+) [code = DEPRESSION SCREENING (12+)] [facility] Scheduled Test 2022-07-20 00:00:00 DEPRESSION SCREENING (12+) [code = DEPRESSION SCREENING (12+)] [facility] Scheduled Test 2022-07-20 00:00:00 DEPRESSION SCREENING (12+) [code = DEPRESSION SCREENING (12+)] [facility] Scheduled Test 2022-07-20 00:00:00 DEPRESSION SCREENING (12+) [code = DEPRESSION SCREENING (12+)] [facility] Scheduled Test 2022-07-20 00:00:00 DEPRESSION SCREENING (12+) [code = DEPRESSION SCREENING (12+)] [facility] Scheduled Test 2022-07-20 00:00:00 DEPRESSION SCREENING (12+) [code = DEPRESSION SCREENING (12+)] [facility] Scheduled Test 2022-07-20 00:00:00 DEPRESSION SCREENING (12+) [code = DEPRESSION SCREENING (12+)] [facility] Scheduled Test 2022-07-20 00:00:00 DEPRESSION SCREENING (12+) [code = DEPRESSION SCREENING (12+)] [facility] Scheduled Test 2022-07-20 00:00:00 DEPRESSION SCREENING (12+) [code = DEPRESSION SCREENING (12+)] [facility] Scheduled Test 2022-07-20 00:00:00 DEPRESSION SCREENING (12+) [code = DEPRESSION SCREENING (12+)] [facility] Scheduled Test 2022-07-20 00:00:00 DEPRESSION SCREENING (12+) [code = DEPRESSION SCREENING (12+)] [facility] Scheduled Test 2022-07-20 00:00:00 DEPRESSION SCREENING (12+) [code = DEPRESSION SCREENING (12+)] [facility] Scheduled Test 2022-07-20 00:00:00 DEPRESSION SCREENING (12+) [code = DEPRESSION SCREENING (12+)] [facility] Scheduled Test 2022-07-20 00:00:00 DEPRESSION SCREENING (12+) [code = DEPRESSION SCREENING (12+)] [facility] Scheduled Test 2022-07-20 00:00:00 DEPRESSION SCREENING (12+) [code = DEPRESSION SCREENING (12+)] [facility] Scheduled Test 2022-07-20 00:00:00 DEPRESSION SCREENING (12+) [code = DEPRESSION SCREENING (12+)] [facility] Scheduled Test 2022-07-20 00:00:00 DEPRESSION SCREENING (12+) [code = DEPRESSION SCREENING (12+)] [facility] Scheduled Test 2022-07-20 00:00:00 DEPRESSION SCREENING (12+) [code = DEPRESSION SCREENING (12+)] [facility] Scheduled Test 2022-07-20 00:00:00 DEPRESSION SCREENING (12+) [code = DEPRESSION SCREENING (12+)] [facility] Scheduled Test 2022-07-20 00:00:00 DEPRESSION SCREENING (12+) [code = DEPRESSION SCREENING (12+)] [facility] Scheduled Test 2022-07-20 00:00:00 DEPRESSION SCREENING (12+) [code = DEPRESSION SCREENING (12+)] [facility] Scheduled Test 2022-07-20 00:00:00 DEPRESSION SCREENING (12+) [code = DEPRESSION SCREENING (12+)] [facility] Scheduled Test 2022-07-20 00:00:00 DEPRESSION SCREENING (12+) [code = DEPRESSION SCREENING (12+)] [facility] Scheduled Test 2022-07-20 00:00:00 DEPRESSION SCREENING (12+) [code = DEPRESSION SCREENING (12+)] [facility] Scheduled Test 2022-07-20 00:00:00 DEPRESSION SCREENING (12+) [code = DEPRESSION SCREENING (12+)] [facility] Scheduled Test 2022-07-20 00:00:00 DEPRESSION SCREENING (12+) [code = DEPRESSION SCREENING (12+)] [facility] Scheduled Test 2022-07-20 00:00:00 DEPRESSION SCREENING (12+) [code = DEPRESSION SCREENING (12+)] [facility] Scheduled Test 2022-07-20 00:00:00 DEPRESSION SCREENING (12+) [code = DEPRESSION SCREENING (12+)] [facility] Scheduled Test 2022-06-21 00:00:00 COVID-19 VACCINE (4 - Booster for Pfizer series) [code = COVID-19 VACCINE (4 - Booster for Pfizer series)] [facility] Scheduled Test 2022-06-21 00:00:00 COVID-19 VACCINE (4 - Booster for Pfizer series) [code = COVID-19 VACCINE (4 - Booster for Pfizer series)] [facility] Scheduled Test 2022-06-21 00:00:00 COVID-19 VACCINE (4 - Booster for Pfizer series) [code = COVID-19 VACCINE (4 - Booster for Pfizer series)] [facility] Scheduled Test 2022-06-21 00:00:00 COVID-19 VACCINE (4 - Booster for Pfizer series) [code = COVID-19 VACCINE (4 - Booster for Pfizer series)] [facility] Scheduled Test 2022-04-16 00:00:00 COVID-19 VACCINE (4 - Booster for Pfizer series) [code = COVID-19 VACCINE (4 - Booster for Pfizer series)] [facility] Scheduled Test 2022-04-16 00:00:00 COVID-19 VACCINE (4 - Booster for Pfizer series) [code = COVID-19 VACCINE (4 - Booster for Pfizer series)] [facility] Scheduled Test 2022-04-16 00:00:00 COVID-19 VACCINE (4 - Booster for Pfizer series) [code = COVID-19 VACCINE (4 - Booster for Pfizer series)] [facility] Scheduled Test 2022-04-16 00:00:00 COVID-19 VACCINE (4 - Booster for Pfizer series) [code = COVID-19 VACCINE (4 - Booster for Pfizer series)] [facility] Scheduled Test 2022-04-16 00:00:00 COVID-19 VACCINE (4 - Booster for Pfizer series) [code = COVID-19 VACCINE (4 - Booster for Pfizer series)] [facility] Scheduled Test 2022-04-16 00:00:00 COVID-19 VACCINE (4 - Booster for Pfizer series) [code = COVID-19 VACCINE (4 - Booster for Pfizer series)] [facility] Scheduled Test 2022-04-16 00:00:00 COVID-19 VACCINE (4 - Booster for Pfizer series) [code = COVID-19 VACCINE (4 - Booster for Pfizer series)] [facility] Scheduled Test 2022-04-16 00:00:00 COVID-19 VACCINE (4 - Booster for Pfizer series) [code = COVID-19 VACCINE (4 - Booster for Pfizer series)] [facility] Scheduled Test 2022-04-16 00:00:00 COVID-19 VACCINE (4 - Booster for Pfizer series) [code = COVID-19 VACCINE (4 - Booster for Pfizer series)] [facility] Scheduled Test 2022-04-16 00:00:00 COVID-19 VACCINE (4 - Booster for Pfizer series) [code = COVID-19 VACCINE (4 - Booster for Pfizer series)] [facility] Scheduled Test 2022-04-16 00:00:00 COVID-19 VACCINE (4 - Booster for Pfizer series) [code = COVID-19 VACCINE (4 - Booster for Pfizer series)] [facility] Scheduled Test 2022-04-16 00:00:00 COVID-19 VACCINE (4 - Booster for Pfizer series) [code = COVID-19 VACCINE (4 - Booster for Pfizer series)] [facility] Scheduled Test 2022-04-16 00:00:00 COVID-19 VACCINE (4 - Booster for Pfizer series) [code = COVID-19 VACCINE (4 - Booster for Pfizer series)] [facility] Scheduled Test 2022-04-16 00:00:00 COVID-19 VACCINE (4 - Booster for Pfizer series) [code = COVID-19 VACCINE (4 - Booster for Pfizer series)] [facility] Scheduled Test 2022-04-16 00:00:00 COVID-19 VACCINE (4 - Booster for Pfizer series) [code = COVID-19 VACCINE (4 - Booster for Pfizer series)] [facility] Scheduled Test 2022-04-16 00:00:00 COVID-19 VACCINE (4 - Booster for Pfizer series) [code = COVID-19 VACCINE (4 - Booster for Pfizer series)] [facility] Scheduled Test 2022-04-16 00:00:00 COVID-19 VACCINE (4 - Booster for Pfizer series) [code = COVID-19 VACCINE (4 - Booster for Pfizer series)] [facility] Scheduled Test 2022-04-16 00:00:00 COVID-19 VACCINE (4 - Booster for Pfizer series) [code = COVID-19 VACCINE (4 - Booster for Pfizer series)] [facility] Scheduled Test 2022-04-16 00:00:00 COVID-19 VACCINE (4 - Booster for Pfizer series) [code = COVID-19 VACCINE (4 - Booster for Pfizer series)] [facility] Scheduled Test 2022-04-16 00:00:00 COVID-19 VACCINE (4 - Booster for Pfizer series) [code = COVID-19 VACCINE (4 - Booster for Pfizer series)] [facility] Scheduled Test 2022-04-16 00:00:00 COVID-19 VACCINE (4 - Pfizer series) [code = COVID-19 VACCINE (4 - Pfizer series)] [facility] Scheduled Test 2022-04-16 00:00:00 COVID-19 VACCINE (4 - Pfizer series) [code = COVID-19 VACCINE (4 - Pfizer series)] [facility] Scheduled Test 2022-04-16 00:00:00 COVID-19 VACCINE (4 - Pfizer series) [code = COVID-19 VACCINE (4 - Pfizer series)] [facility] Scheduled Test 2022-04-16 00:00:00 COVID-19 VACCINE (4 - Pfizer series) [code = COVID-19 VACCINE (4 - Pfizer series)] [facility] Scheduled Test 2022-04-16 00:00:00 COVID-19 VACCINE (4 - Booster for Pfizer series) [code = COVID-19 VACCINE (4 - Booster for Pfizer series)] [facility] Scheduled Test 2022-04-16 00:00:00 COVID-19 VACCINE (4 - Pfizer series) [code = COVID-19 VACCINE (4 - Pfizer series)] [facility] Scheduled Test 2022-03-20 00:00:00 INFLUENZA VACCINE (#1) [code = INFLUENZA VACCINE (#1)] [facility] Scheduled Test 2022-03-20 00:00:00 INFLUENZA VACCINE (#1) [code = INFLUENZA VACCINE (#1)] [facility] Scheduled Test 2022-03-20 00:00:00 INFLUENZA VACCINE (#1) [code = INFLUENZA VACCINE (#1)] [facility] Scheduled Test 2022-03-20 00:00:00 INFLUENZA VACCINE (#1) [code = INFLUENZA VACCINE (#1)] [facility] Scheduled Test 2022-01-14 00:00:00 SHINGLES VACCINES (1 of 2) [code = SHINGLES VACCINES (1 of 2)] [facility] Scheduled Test 2022-01-14 00:00:00 SHINGLES VACCINES (1 of 2) [code = SHINGLES VACCINES (1 of 2)] [facility] Scheduled Test 2022-01-14 00:00:00 SHINGLES VACCINES (1 of 2) [code = SHINGLES VACCINES (1 of 2)] [facility] Scheduled Test 2022-01-14 00:00:00 SHINGLES VACCINES (1 of 2) [code = SHINGLES VACCINES (1 of 2)] [facility] Scheduled Test 2022-01-14 00:00:00 SHINGLES VACCINES (1 of 2) [code = SHINGLES VACCINES (1 of 2)] [facility] Scheduled Test 2022-01-14 00:00:00 SHINGLES VACCINES (1 of 2) [code = SHINGLES VACCINES (1 of 2)] [facility] Scheduled Test 2022-01-14 00:00:00 SHINGLES VACCINES (1 of 2) [code = SHINGLES VACCINES (1 of 2)] [facility] Scheduled Test 2022-01-14 00:00:00 SHINGLES VACCINES (1 of 2) [code = SHINGLES VACCINES (1 of 2)] [facility] Scheduled Test 2022-01-14 00:00:00 SHINGLES VACCINES (1 of 2) [code = SHINGLES VACCINES (1 of 2)] [facility] Scheduled Test 2022-01-14 00:00:00 SHINGLES VACCINES (1 of 2) [code = SHINGLES VACCINES (1 of 2)] [facility] Scheduled Test 2022-01-14 00:00:00 SHINGLES VACCINES (1 of 2) [code = SHINGLES VACCINES (1 of 2)] [facility] Scheduled Test 2022-01-14 00:00:00 SHINGLES VACCINES (1 of 2) [code = SHINGLES VACCINES (1 of 2)] [facility] Scheduled Test 2022-01-14 00:00:00 SHINGLES VACCINES (1 of 2) [code = SHINGLES VACCINES (1 of 2)] [facility] Scheduled Test 2022-01-14 00:00:00 SHINGLES VACCINES (1 of 2) [code = SHINGLES VACCINES (1 of 2)] [facility] Scheduled Test 2022-01-14 00:00:00 SHINGLES VACCINES (1 of 2) [code = SHINGLES VACCINES (1 of 2)] [facility] Scheduled Test 2022-01-14 00:00:00 Screening for malignant neoplasm of lung (procedure) [code = [id number]] [facility] Scheduled Test 2022-01-14 00:00:00 SHINGLES VACCINES (1 of 2) [code = SHINGLES VACCINES (1 of 2)] [facility] Scheduled Test 2022-01-14 00:00:00 Screening for malignant neoplasm of lung (procedure) [code = [id number]] [facility] Scheduled Test 2022-01-14 00:00:00 SHINGLES VACCINES (1 of 2) [code = SHINGLES VACCINES (1 of 2)] [facility] Scheduled Test 2022-01-14 00:00:00 Screening for malignant neoplasm of lung (procedure) [code = [id number]] [facility] Scheduled Test 2022-01-14 00:00:00 SHINGLES VACCINES (1 of 2) [code = SHINGLES VACCINES (1 of 2)] [facility] Scheduled Test 2022-01-14 00:00:00 Screening for malignant neoplasm of lung (procedure) [code = [id number]] [facility] Scheduled Test 2022-01-14 00:00:00 SHINGLES VACCINES (1 of 2) [code = SHINGLES VACCINES (1 of 2)] [facility] Scheduled Test 2022-01-14 00:00:00 Screening for malignant neoplasm of lung (procedure) [code = [id number]] [facility] Scheduled Test 2022-01-14 00:00:00 SHINGLES VACCINES (1 of 2) [code = SHINGLES VACCINES (1 of 2)] [facility] Scheduled Test 2022-01-14 00:00:00 Screening for malignant neoplasm of lung (procedure) [code = [id number]] [facility] Scheduled Test 2022-01-14 00:00:00 SHINGLES VACCINES (1 of 2) [code = SHINGLES VACCINES (1 of 2)] [facility] Scheduled Test 2022-01-14 00:00:00 Screening for malignant neoplasm of lung (procedure) [code = [id number]] [facility] Scheduled Test 2022-01-14 00:00:00 SHINGLES VACCINES (1 of 2) [code = SHINGLES VACCINES (1 of 2)] [facility] Scheduled Test 2022-01-14 00:00:00 Screening for malignant neoplasm of lung (procedure) [code = 427052955] [facility] Scheduled Test 2022-01-14 00:00:00 SHINGLES VACCINES (1 of 2) [code = SHINGLES VACCINES (1 of 2)] [facility] Scheduled Test 2022-01-14 00:00:00 Screening for malignant neoplasm of lung (procedure) [code = [id number]] [facility] Scheduled Test 2022-01-14 00:00:00 SHINGLES VACCINES (1 of 2) [code = SHINGLES VACCINES (1 of 2)] [facility] Scheduled Test 2022-01-14 00:00:00 Screening for malignant neoplasm of lung (procedure) [code = 342568732] [facility] Scheduled Test 2022-01-14 00:00:00 SHINGLES VACCINES (1 of 2) [code = SHINGLES VACCINES (1 of 2)] [facility] Scheduled Test 2022-01-14 00:00:00 Screening for malignant neoplasm of lung (procedure) [code = 263584498] [facility] Scheduled Test 2022-01-14 00:00:00 SHINGLES VACCINES (1 of 2) [code = SHINGLES VACCINES (1 of 2)] [facility] Scheduled Test 2022-01-14 00:00:00 Screening for malignant neoplasm of lung (procedure) [code = 284027176] [facility] Scheduled Test 2022-01-14 00:00:00 SHINGLES VACCINES (1 of 2) [code = SHINGLES VACCINES (1 of 2)] [facility] Scheduled Test 2022-01-14 00:00:00 Screening for malignant neoplasm of lung (procedure) [code = 591356842] [facility] Scheduled Test 2022-01-14 00:00:00 SHINGLES VACCINES (1 of 2) [code = SHINGLES VACCINES (1 of 2)] [facility] Scheduled Test 2022-01-14 00:00:00 Screening for malignant neoplasm of lung (procedure) [code = [id number]] [facility] Scheduled Test 2022-01-14 00:00:00 SHINGLES VACCINES (1 of 2) [code = SHINGLES VACCINES (1 of 2)] [facility] Scheduled Test 2022-01-14 00:00:00 Screening for malignant neoplasm of lung (procedure) [code = 102211086] [facility] Scheduled Test 2022-01-14 00:00:00 SHINGLES VACCINES (1 of 2) [code = SHINGLES VACCINES (1 of 2)] [facility] Scheduled Test 2022-01-14 00:00:00 Screening for malignant neoplasm of lung (procedure) [code = 344441529] [facility] Scheduled Test 2022-01-14 00:00:00 SHINGLES VACCINES (1 of 2) [code = SHINGLES VACCINES (1 of 2)] [facility] Scheduled Test 2022-01-14 00:00:00 Screening for malignant neoplasm of lung (procedure) [code = 483266616] [facility] Scheduled Test 2022-01-14 00:00:00 SHINGLES VACCINES (1 of 2) [code = SHINGLES VACCINES (1 of 2)] [facility] Scheduled Test 2022-01-14 00:00:00 Screening for malignant neoplasm of lung (procedure) [code = 209106937] [facility] Scheduled Test 2022-01-14 00:00:00 SHINGLES VACCINES (1 of 2) [code = SHINGLES VACCINES (1 of 2)] [facility] Scheduled Test 2022-01-14 00:00:00 Screening for malignant neoplasm of lung (procedure) [code = 084124992] [facility] Scheduled Test 2022-01-14 00:00:00 Screening for malignant neoplasm of lung (procedure) [code = 601097249] [facility] Scheduled Test 2022-01-14 00:00:00 SHINGLES VACCINES (1 of 2) [code = SHINGLES VACCINES (1 of 2)] [facility] Scheduled Test 2022-01-14 00:00:00 SHINGLES VACCINES (1 of 2) [code = SHINGLES VACCINES (1 of 2)] [facility] Scheduled Test 2022-01-14 00:00:00 Screening for malignant neoplasm of lung (procedure) [code = 805712447] [facility] Scheduled Test 2022-01-14 00:00:00 SHINGLES VACCINES (1 of 2) [code = SHINGLES VACCINES (1 of 2)] [facility] Scheduled Test 2022-01-14 00:00:00 Screening for malignant neoplasm of lung (procedure) [code = 605667864] [facility] Scheduled Test 2022-01-14 00:00:00 SHINGLES VACCINES (1 of 2) [code = SHINGLES VACCINES (1 of 2)] [facility] Scheduled Test 2022-01-14 00:00:00 Screening for malignant neoplasm of lung (procedure) [code = 948432075] [facility] Scheduled Test 2022-01-14 00:00:00 SHINGLES VACCINES (1 of 2) [code = SHINGLES VACCINES (1 of 2)] [facility] Scheduled Test 2022-01-14 00:00:00 Screening for malignant neoplasm of lung (procedure) [code = 181724267] [facility] Scheduled Test 2022-01-14 00:00:00 Screening for malignant neoplasm of lung (procedure) [code = 062405951] [facility] Scheduled Test 2022-01-14 00:00:00 SHINGLES VACCINES (1 of 2) [code = SHINGLES VACCINES (1 of 2)] [facility] Scheduled Test 2022-01-14 00:00:00 SHINGLES VACCINES (1 of 2) [code = SHINGLES VACCINES (1 of 2)] [facility] Scheduled Test 2022-01-14 00:00:00 Screening for malignant neoplasm of lung (procedure) [code = [id number]] [facility] Future Scheduled Test 2022-01-14 00:00:00 SHINGLES VACCINES (1 of 2) [code = SHINGLES VACCINES (1 of 2)] [facility] Future Scheduled Test 2022-01-14 00:00:00 Screening for malignant neoplasm of lung (procedure) [code = [id number]] [facility] Future Scheduled Test 2022-01-14 00:00:00 SHINGLES VACCINES (1 of 2) [code = SHINGLES VACCINES (1 of 2)] [facility] Future Scheduled Test 2022-01-14 00:00:00 Screening for malignant neoplasm of lung (procedure) [code = [id number]] [facility] Future Scheduled Test 2022-01-14 00:00:00 SHINGLES VACCINES (1 of 2) [code = SHINGLES VACCINES (1 of 2)] [facility] Future Scheduled Test 2022-01-14 00:00:00 Screening for malignant neoplasm of lung (procedure) [code = [id number]] [facility] Future Scheduled Test 2022-01-14 00:00:00 SHINGLES VACCINES (1 of 2) [code = SHINGLES VACCINES (1 of 2)] [facility] Future Scheduled Test 2022-01-14 00:00:00 Screening for malignant neoplasm of lung (procedure) [code = [id number]] [facility] Future Scheduled Test 2022-01-14 00:00:00 SHINGLES VACCINES (1 of 2) [code = SHINGLES VACCINES (1 of 2)] [facility] Future Scheduled Test 2022-01-14 00:00:00 Screening for malignant neoplasm of lung (procedure) [code = [id number]] [facility] Future Scheduled Test 2022-01-14 00:00:00 Screening for malignant neoplasm of lung (procedure) [code = [id number]] [facility] Future Scheduled Test 2022-01-14 00:00:00 SHINGLES VACCINES (1 of 2) [code = SHINGLES VACCINES (1 of 2)] [facility] Scheduled Test 2022-01-14 00:00:00 SHINGLES VACCINES (1 of 2) [code = SHINGLES VACCINES (1 of 2)] [facility] Scheduled Test 2022-01-14 00:00:00 Screening for malignant neoplasm of lung (procedure) [code = 923087112] [facility] Future Scheduled Test 2022-01-14 00:00:00 SHINGLES VACCINES (1 of 2) [code = SHINGLES VACCINES (1 of 2)] [facility] Future Scheduled Test 2022-01-14 00:00:00 Screening for malignant neoplasm of lung (procedure) [code = [id number]] [facility] Scheduled Test 2022-01-14 00:00:00 SHINGLES VACCINES (1 of 2) [code = SHINGLES VACCINES (1 of 2)] [facility] Scheduled Test 2022-01-14 00:00:00 Screening for malignant neoplasm of lung (procedure) [code = [id number]] [facility] Future Scheduled Test 2022-01-14 00:00:00 SHINGLES VACCINES (1 of 2) [code = SHINGLES VACCINES (1 of 2)] [facility] Future Scheduled Test 2022-01-14 00:00:00 Screening for malignant neoplasm of lung (procedure) [code = [id number]] [facility] Future Scheduled Test 2022-01-14 00:00:00 SHINGLES VACCINES (1 of 2) [code = SHINGLES VACCINES (1 of 2)] [facility] Future Scheduled Test 2022-01-14 00:00:00 Screening for malignant neoplasm of lung (procedure) [code = [id number]] [facility] Future Scheduled Test 2022-01-14 00:00:00 SHINGLES VACCINES (1 of 2) [code = SHINGLES VACCINES (1 of 2)] [facility] Future Scheduled Test 2022-01-14 00:00:00 Screening for malignant neoplasm of lung (procedure) [code = 893535116] [facility] Scheduled Test 2022-01-14 00:00:00 SHINGLES VACCINES (1 of 2) [code = SHINGLES VACCINES (1 of 2)] [facility] Scheduled Test 2022-01-14 00:00:00 Screening for malignant neoplasm of lung (procedure) [code = 973738531] [facility] Scheduled Test 2022-01-14 00:00:00 SHINGLES VACCINES (1 of 2) [code = SHINGLES VACCINES (1 of 2)] [facility] Future Scheduled Test 2022-01-14 00:00:00 Screening for malignant neoplasm of lung (procedure) [code = 710191787] [facility] Future Scheduled Test 2022-01-14 00:00:00 SHINGLES VACCINES (1 of 2) [code = SHINGLES VACCINES (1 of 2)] [facility] Scheduled Test 2022-01-14 00:00:00 Screening for malignant neoplasm of lung (procedure) [code = 640966671] [facility] Scheduled Test 2022-01-14 00:00:00 SHINGLES VACCINES (1 of 2) [code = SHINGLES VACCINES (1 of 2)] [facility] Scheduled Test 2022-01-14 00:00:00 Screening for malignant neoplasm of lung (procedure) [code = 498328671] [facility] Scheduled Test 2022-01-14 00:00:00 SHINGLES VACCINES (1 of 2) [code = SHINGLES VACCINES (1 of 2)] [facility] Scheduled Test 2022-01-14 00:00:00 Screening for malignant neoplasm of lung (procedure) [code = 136112247] [facility] Scheduled Test 2022-01-14 00:00:00 SHINGLES VACCINES (1 of 2) [code = SHINGLES VACCINES (1 of 2)] [facility] Scheduled Test 2022-01-14 00:00:00 Screening for malignant neoplasm of lung (procedure) [code = [id number]] [facility] Scheduled Test 2022-01-14 00:00:00 SHINGLES VACCINES (1 of 2) [code = SHINGLES VACCINES (1 of 2)] [facility] Scheduled Test 2022-01-14 00:00:00 Screening for malignant neoplasm of lung (procedure) [code = 185342219] [facility] Scheduled Test 2022-01-14 00:00:00 SHINGLES VACCINES (1 of 2) [code = SHINGLES VACCINES (1 of 2)] [facility] Scheduled Test 2022-01-14 00:00:00 Screening for malignant neoplasm of lung (procedure) [code = 901915907] [facility] Scheduled Test 2022-01-14 00:00:00 SHINGLES VACCINES (1 of 2) [code = SHINGLES VACCINES (1 of 2)] [facility] Scheduled Test 2022-01-14 00:00:00 SHINGLES VACCINES (1 of 2) [code = SHINGLES VACCINES (1 of 2)] [facility] Scheduled Test 2022-01-14 00:00:00 SHINGLES VACCINES (1 of 2) [code = SHINGLES VACCINES (1 of 2)] [facility] Scheduled Test 2022-01-14 00:00:00 Screening for malignant neoplasm of lung (procedure) [code = [id number]] [facility] Scheduled Test 2022-01-14 00:00:00 SHINGLES VACCINES (1 of 2) [code = SHINGLES VACCINES (1 of 2)] [facility] Scheduled Test 2022-01-14 00:00:00 Screening for malignant neoplasm of lung (procedure) [code = 234575093] [facility] Scheduled Test 2022-01-14 00:00:00 SHINGLES VACCINES (1 of 2) [code = SHINGLES VACCINES (1 of 2)] [facility] Scheduled Test 2022-01-14 00:00:00 Screening for malignant neoplasm of lung (procedure) [code = 354670456] [facility] Scheduled Test 2022-01-14 00:00:00 SHINGLES VACCINES (1 of 2) [code = SHINGLES VACCINES (1 of 2)] [facility] Scheduled Test 2022-01-14 00:00:00 Screening for malignant neoplasm of lung (procedure) [code = 634324674] [facility] Scheduled Test 2022-01-14 00:00:00 SHINGLES VACCINES (1 of 2) [code = SHINGLES VACCINES (1 of 2)] [facility] Scheduled Test 2022-01-14 00:00:00 Screening for malignant neoplasm of lung (procedure) [code = 725934237] [facility] Scheduled Test 2022-01-14 00:00:00 SHINGLES VACCINES (1 of 2) [code = SHINGLES VACCINES (1 of 2)] [facility] Scheduled Test 2022-01-14 00:00:00 Screening for malignant neoplasm of lung (procedure) [code = 037082339] [facility] Scheduled Test 2022-01-14 00:00:00 SHINGLES VACCINES (1 of 2) [code = SHINGLES VACCINES (1 of 2)] [facility] Scheduled Test 2022-01-14 00:00:00 Screening for malignant neoplasm of lung (procedure) [code = 702595295] [facility] Scheduled Test 2022-01-14 00:00:00 SHINGLES VACCINES (1 of 2) [code = SHINGLES VACCINES (1 of 2)] [facility] Scheduled Test 2013-12-15 00:00:00 PNEUMOCOCCAL VACCINE 0-64 YRS (2 - PCV) [code = PNEUMOCOCCAL VACCINE 0-64 YRS (2 - PCV)] [facility] Scheduled Test 2013-12-15 00:00:00 PNEUMOCOCCAL VACCINE 0-64 YRS (2 - PCV) [code = PNEUMOCOCCAL VACCINE 0-64 YRS (2 - PCV)] [facility] Scheduled Test 2013-12-15 00:00:00 PNEUMOCOCCAL VACCINE 0-64 YRS (2 - PCV) [code = PNEUMOCOCCAL VACCINE 0-64 YRS (2 - PCV)] [facility] Scheduled Test 2013-12-15 00:00:00 PNEUMOCOCCAL VACCINE 0-64 YRS (2 - PCV) [code = PNEUMOCOCCAL VACCINE 0-64 YRS (2 - PCV)] [facility] Scheduled Test 2013-12-15 00:00:00 Pneumococcal Vaccine: 0-64 Years (2 - PCV) [code = Pneumococcal Vaccine: 0-64 Years (2 - PCV)] [facility] Scheduled Test 2013-12-15 00:00:00 Pneumococcal Vaccine: 0-64 Years (2 - PCV) [code = Pneumococcal Vaccine: 0-64 Years (2 - PCV)] [facility] Scheduled Test 2013-12-15 00:00:00 Pneumococcal Vaccine: 0-64 Years (2 - PCV) [code = Pneumococcal Vaccine: 0-64 Years (2 - PCV)] [facility] Scheduled Test 2013-12-15 00:00:00 Pneumococcal Vaccine: 0-64 Years (2 - PCV) [code = Pneumococcal Vaccine: 0-64 Years (2 - PCV)] [facility] Scheduled Test 2013-12-15 00:00:00 Pneumococcal Vaccine: 0-64 Years (2 - PCV) [code = Pneumococcal Vaccine: 0-64 Years (2 - PCV)] [facility] Scheduled Test 2013-12-15 00:00:00 Pneumococcal Vaccine: 0-64 Years (2 - PCV) [code = Pneumococcal Vaccine: 0-64 Years (2 - PCV)] [facility] Scheduled Test 2013-12-15 00:00:00 Pneumococcal Vaccine: 0-64 Years (2 - PCV) [code = Pneumococcal Vaccine: 0-64 Years (2 - PCV)] [facility] Scheduled Test 2013-12-15 00:00:00 Pneumococcal Vaccine: 0-64 Years (2 - PCV) [code = Pneumococcal Vaccine: 0-64 Years (2 - PCV)] [facility] Scheduled Test 2013-12-15 00:00:00 Pneumococcal Vaccine: 0-64 Years (2 - PCV) [code = Pneumococcal Vaccine: 0-64 Years (2 - PCV)] [facility] Scheduled Test 2013-12-15 00:00:00 Pneumococcal Vaccine: 0-64 Years (2 - PCV) [code = Pneumococcal Vaccine: 0-64 Years (2 - PCV)] [facility] Scheduled Test 2013-12-15 00:00:00 Pneumococcal Vaccine: 0-64 Years (2 - PCV) [code = Pneumococcal Vaccine: 0-64 Years (2 - PCV)] [facility] Scheduled Test 2013-12-15 00:00:00 Pneumococcal Vaccine: 0-64 Years (2 - PCV) [code = Pneumococcal Vaccine: 0-64 Years (2 - PCV)] [facility] Scheduled Test 2013-12-15 00:00:00 Pneumococcal Vaccine: 0-64 Years (2 - PCV) [code = Pneumococcal Vaccine: 0-64 Years (2 - PCV)] [facility] Scheduled Test 2013-12-15 00:00:00 Pneumococcal Vaccine: 0-64 Years (2 - PCV) [code = Pneumococcal Vaccine: 0-64 Years (2 - PCV)] [facility] Scheduled Test 2013-12-15 00:00:00 Pneumococcal Vaccine: 0-64 Years (2 - PCV) [code = Pneumococcal Vaccine: 0-64 Years (2 - PCV)] [facility] Scheduled Test 2013-12-15 00:00:00 Pneumococcal Vaccine: 0-64 Years (2 - PCV) [code = Pneumococcal Vaccine: 0-64 Years (2 - PCV)] [facility] Scheduled Test 2013-12-15 00:00:00 Pneumococcal Vaccine: 0-64 Years (2 - PCV) [code = Pneumococcal Vaccine: 0-64 Years (2 - PCV)] [facility] Future Scheduled Test 2013-12-15 00:00:00 Pneumococcal Vaccine: 0-64 Years (2 - PCV) [code = Pneumococcal Vaccine: 0-64 Years (2 - PCV)] [facility] Scheduled Test 2013-12-15 00:00:00 Pneumococcal Vaccine: 0-64 Years (2 - PCV) [code = Pneumococcal Vaccine: 0-64 Years (2 - PCV)] [facility] Scheduled Test 2013-12-15 00:00:00 Pneumococcal Vaccine: 0-64 Years (2 - PCV) [code = Pneumococcal Vaccine: 0-64 Years (2 - PCV)] [facility] Future Scheduled Test 2013-12-15 00:00:00 Pneumococcal Vaccine: 0-64 Years (2 of 2 - PCV) [code = Pneumococcal Vaccine: 0-64 Years (2 of 2 - PCV)] [facility] Scheduled Test 2013-12-15 00:00:00 Pneumococcal Vaccine: 0-64 Years (2 of 2 - PCV) [code = Pneumococcal Vaccine: 0-64 Years (2 of 2 - PCV)] [facility] Scheduled Test 2013-12-15 00:00:00 Pneumococcal Vaccine: 0-64 Years (2 of 2 - PCV) [code = Pneumococcal Vaccine: 0-64 Years (2 of 2 - PCV)] [facility] Scheduled Test 2013-12-15 00:00:00 Pneumococcal Vaccine: 0-64 Years (2 of 2 - PCV) [code = Pneumococcal Vaccine: 0-64 Years (2 of 2 - PCV)] [facility] Scheduled Test 2013-12-15 00:00:00 Pneumococcal Vaccine: 0-64 Years (2 of 2 - PCV) [code = Pneumococcal Vaccine: 0-64 Years (2 of 2 - PCV)] [facility] Scheduled Test 2013-12-15 00:00:00 Pneumococcal Vaccine: 0-64 Years (2 of 2 - PCV) [code = Pneumococcal Vaccine: 0-64 Years (2 of 2 - PCV)] [facility] Scheduled Test 2013-12-15 00:00:00 Pneumococcal Vaccine: 0-64 Years (2 of 2 - PCV) [code = Pneumococcal Vaccine: 0-64 Years (2 of 2 - PCV)] [facility] Scheduled Test 2013-12-15 00:00:00 Pneumococcal Vaccine: 0-64 Years (2 of 2 - PCV) [code = Pneumococcal Vaccine: 0-64 Years (2 of 2 - PCV)] [facility] Future Scheduled Test 2013-12-15 00:00:00 Pneumococcal Vaccine: 0-64 Years (2 of 2 - PCV) [code = Pneumococcal Vaccine: 0-64 Years (2 of 2 - PCV)] [facility] Future Scheduled Test 2013-12-15 00:00:00 Pneumococcal Vaccine: 0-64 Years (2 of 2 - PCV) [code = Pneumococcal Vaccine: 0-64 Years (2 of 2 - PCV)] [facility] Scheduled Test 2013-12-15 00:00:00 Pneumococcal Vaccine: 0-64 Years (2 of 2 - PCV) [code = Pneumococcal Vaccine: 0-64 Years (2 of 2 - PCV)] [facility] Scheduled Test 2013-12-15 00:00:00 Pneumococcal Vaccine: 0-64 Years (2 of 2 - PCV) [code = Pneumococcal Vaccine: 0-64 Years (2 of 2 - PCV)] [facility] Scheduled Test 2013-12-15 00:00:00 Pneumococcal Vaccine: 0-64 Years (2 of 2 - PCV) [code = Pneumococcal Vaccine: 0-64 Years (2 of 2 - PCV)] [facility] Scheduled Test 2013-12-15 00:00:00 Pneumococcal Vaccine: 0-64 Years (2 of 2 - PCV) [code = Pneumococcal Vaccine: 0-64 Years (2 of 2 - PCV)] [facility] Scheduled Test 2013-12-15 00:00:00 Pneumococcal Vaccine: 0-64 Years (2 of 2 - PCV) [code = Pneumococcal Vaccine: 0-64 Years (2 of 2 - PCV)] [facility] Scheduled Test 2013-12-15 00:00:00 Pneumococcal Vaccine: 0-64 Years (2 of 2 - PCV) [code = Pneumococcal Vaccine: 0-64 Years (2 of 2 - PCV)] [facility] Scheduled Test 2013-12-15 00:00:00 Pneumococcal Vaccine: 0-64 Years (2 of 2 - PCV) [code = Pneumococcal Vaccine: 0-64 Years (2 of 2 - PCV)] [facility] Scheduled Test 2013-12-15 00:00:00 Pneumococcal Vaccine: 0-64 Years (2 of 2 - PCV) [code = Pneumococcal Vaccine: 0-64 Years (2 of 2 - PCV)] [facility] Scheduled Test 2013-12-15 00:00:00 Pneumococcal Vaccine: 0-64 Years (2 of 2 - PCV) [code = Pneumococcal Vaccine: 0-64 Years (2 of 2 - PCV)] [facility] Scheduled Test 2013-12-15 00:00:00 Pneumococcal Vaccine: 0-64 Years (2 - PCV) [code = Pneumococcal Vaccine: 0-64 Years (2 - PCV)] [facility] Scheduled Test 2013-12-15 00:00:00 Pneumococcal Vaccine: 0-64 Years (2 - PCV) [code = Pneumococcal Vaccine: 0-64 Years (2 - PCV)] [facility] Scheduled Test 2013-12-15 00:00:00 Pneumococcal Vaccine: 0-64 Years (2 - PCV) [code = Pneumococcal Vaccine: 0-64 Years (2 - PCV)] [facility] Scheduled Test 1993-01-14 00:00:00 Screening for malignant neoplasm of cervix (procedure) [code = [id number]] [facility] Scheduled Test 1993-01-14 00:00:00 Screening for malignant neoplasm of cervix (procedure) [code = 923657787] [facility] Scheduled Test 1993-01-14 00:00:00 Screening for malignant neoplasm of cervix (procedure) [code = 963854826] [facility] Scheduled Test 1993-01-14 00:00:00 Screening for malignant neoplasm of cervix (procedure) [code = 559092395] [facility] Scheduled Test 1993-01-14 00:00:00 Screening for malignant neoplasm of cervix (procedure) [code = 772662859] [facility] Scheduled Test 1993-01-14 00:00:00 Screening for malignant neoplasm of cervix (procedure) [code = 784775839] [facility] Scheduled Test 1993-01-14 00:00:00 Screening for malignant neoplasm of cervix (procedure) [code = 888570229] [facility] Scheduled Test 1993-01-14 00:00:00 Screening for malignant neoplasm of cervix (procedure) [code = 324339682] [facility] Scheduled Test 1993-01-14 00:00:00 Screening for malignant neoplasm of cervix (procedure) [code = 849844718] [facility] Scheduled Test 1993-01-14 00:00:00 Screening for malignant neoplasm of cervix (procedure) [code = 422679809] [facility] Scheduled Test 1993-01-14 00:00:00 Screening for malignant neoplasm of cervix (procedure) [code = 732985982] [facility] Scheduled Test 1993-01-14 00:00:00 Screening for malignant neoplasm of cervix (procedure) [code = 745470929] [facility] Scheduled Test 1993-01-14 00:00:00 Screening for malignant neoplasm of cervix (procedure) [code = 321720704] [facility] Scheduled Test 1993-01-14 00:00:00 Screening for malignant neoplasm of cervix (procedure) [code = 037844705] [facility] Scheduled Test 1993-01-14 00:00:00 Screening for malignant neoplasm of cervix (procedure) [code = 534722902] [facility] Scheduled Test 1993-01-14 00:00:00 Screening for malignant neoplasm of cervix (procedure) [code = 059532249] [facility] Scheduled Test 1993-01-14 00:00:00 Screening for malignant neoplasm of cervix (procedure) [code = 092023660] [facility] Scheduled Test 1993-01-14 00:00:00 Screening for malignant neoplasm of cervix (procedure) [code = 891502462] [facility] Scheduled Test 1993-01-14 00:00:00 Screening for malignant neoplasm of cervix (procedure) [code = 964352746] [facility] Scheduled Test 1993-01-14 00:00:00 Screening for malignant neoplasm of cervix (procedure) [code = 144905351] [facility] Scheduled Test 1993-01-14 00:00:00 Screening for malignant neoplasm of cervix (procedure) [code = 383034066] [facility] Scheduled Test 1993-01-14 00:00:00 Screening for malignant neoplasm of cervix (procedure) [code = 302469440] [facility] Scheduled Test 1993-01-14 00:00:00 Screening for malignant neoplasm of cervix (procedure) [code = 542512762] [facility] Scheduled Test 1993-01-14 00:00:00 Screening for malignant neoplasm of cervix (procedure) [code = 705690234] [facility] Scheduled Test 1993-01-14 00:00:00 Screening for malignant neoplasm of cervix (procedure) [code = 728832771] [facility] Scheduled Test 1993-01-14 00:00:00 Screening for malignant neoplasm of cervix (procedure) [code = 127539834] [facility] Scheduled Test 1993-01-14 00:00:00 Screening for malignant neoplasm of cervix (procedure) [code = 949463277] [facility] Scheduled Test 1993-01-14 00:00:00 Screening for malignant neoplasm of cervix (procedure) [code = 552549341] [facility] Scheduled Test 1993-01-14 00:00:00 Screening for malignant neoplasm of cervix (procedure) [code = 070023413] [facility] Scheduled Test 1993-01-14 00:00:00 Screening for malignant neoplasm of cervix (procedure) [code = 502007466] [facility] Scheduled Test 1993-01-14 00:00:00 Screening for malignant neoplasm of cervix (procedure) [code = 324052328] [facility] Scheduled Test 1993-01-14 00:00:00 Screening for malignant neoplasm of cervix (procedure) [code = 402251873] [facility] Scheduled Test 1993-01-14 00:00:00 Screening for malignant neoplasm of cervix (procedure) [code = 593519763] [facility] Scheduled Test 1993-01-14 00:00:00 Screening for malignant neoplasm of cervix (procedure) [code = 897947100] [facility] Scheduled Test 1993-01-14 00:00:00 Screening for malignant neoplasm of cervix (procedure) [code = 240674230] [facility] Scheduled Test 1993-01-14 00:00:00 Screening for malignant neoplasm of cervix (procedure) [code = 170292442] [facility] Scheduled Test 1993-01-14 00:00:00 Screening for malignant neoplasm of cervix (procedure) [code = 182726504] [facility] Scheduled Test 1993-01-14 00:00:00 Screening for malignant neoplasm of cervix (procedure) [code = 915190212] [facility] Scheduled Test 1993-01-14 00:00:00 Screening for malignant neoplasm of cervix (procedure) [code = 309689353] [facility] Scheduled Test 1993-01-14 00:00:00 Screening for malignant neoplasm of cervix (procedure) [code = 802126758] [facility] Scheduled Test 1993-01-14 00:00:00 Screening for malignant neoplasm of cervix (procedure) [code = 834900676] [facility] Scheduled Test 1993-01-14 00:00:00 Screening for malignant neoplasm of cervix (procedure) [code = 560339085] [facility] Scheduled Test 1993-01-14 00:00:00 Screening for malignant neoplasm of cervix (procedure) [code = 293138086] [facility] Scheduled Test 1993-01-14 00:00:00 Screening for malignant neoplasm of cervix (procedure) [code = 181473058] [facility] Scheduled Test 1993-01-14 00:00:00 Screening for malignant neoplasm of cervix (procedure) [code = 133025383] [facility] Scheduled Test 1993-01-14 00:00:00 Screening for malignant neoplasm of cervix (procedure) [code = 214935176] [facility] Scheduled Test 1993-01-14 00:00:00 Screening for malignant neoplasm of cervix (procedure) [code = 570602384] [facility] Scheduled Test 1993-01-14 00:00:00 Screening for malignant neoplasm of cervix (procedure) [code = 960544903] [facility] Scheduled Test 1993-01-14 00:00:00 Screening for malignant neoplasm of cervix (procedure) [code = 362700199] [facility] Scheduled Test 1993-01-14 00:00:00 Screening for malignant neoplasm of cervix (procedure) [code = 701395356] [facility] Scheduled Test 1993-01-14 00:00:00 Screening for malignant neoplasm of cervix (procedure) [code = 695224307] [facility] Scheduled Test 1993-01-14 00:00:00 Screening for malignant neoplasm of cervix (procedure) [code = 029691233] [facility] Scheduled Test 1993-01-14 00:00:00 Screening for malignant neoplasm of cervix (procedure) [code = 680025341] [facility] Scheduled Test 1993-01-14 00:00:00 Screening for malignant neoplasm of cervix (procedure) [code = 451433331] [facility] Scheduled Test 1993-01-14 00:00:00 Screening for malignant neoplasm of cervix (procedure) [code = 146243631] [facility] Scheduled Test 1993-01-14 00:00:00 Screening for malignant neoplasm of cervix (procedure) [code = 327648117] [facility] Scheduled Test 1993-01-14 00:00:00 Screening for malignant neoplasm of cervix (procedure) [code = 205957754] [facility] Scheduled Test 1993-01-14 00:00:00 Screening for malignant neoplasm of cervix (procedure) [code = 949820187] [facility] Scheduled Test 1993-01-14 00:00:00 Screening for malignant neoplasm of cervix (procedure) [code = 572628534] [facility] Scheduled Test 1993-01-14 00:00:00 Screening for malignant neoplasm of cervix (procedure) [code = 973781438] [facility] Scheduled Test 1993-01-14 00:00:00 Screening for malignant neoplasm of cervix (procedure) [code = 055541331] [facility] Scheduled Test 1993-01-14 00:00:00 Screening for malignant neoplasm of cervix (procedure) [code = 096201740] [facility] Future Scheduled Test 1993-01-14 00:00:00 Screening for malignant neoplasm of cervix (procedure) [code = [id number]] [facility] Scheduled Test 1993-01-14 00:00:00 Screening for malignant neoplasm of cervix (procedure) [code = [id number]] [facility] Scheduled Test 1993-01-14 00:00:00 Screening for malignant neoplasm of cervix (procedure) [code = [id number]] [facility] Scheduled Test 1993-01-14 00:00:00 Screening for malignant neoplasm of cervix (procedure) [code = [id number]] [facility] Scheduled Test 1993-01-14 00:00:00 Screening for malignant neoplasm of cervix (procedure) [code = [id number]] [facility] Scheduled Test 1993-01-14 00:00:00 Screening for malignant neoplasm of cervix (procedure) [code = [id number]] [facility] Scheduled Test 1993-01-14 00:00:00 Screening for malignant neoplasm of cervix (procedure) [code = [id number]] [facility] Scheduled Test 1993-01-14 00:00:00 Screening for malignant neoplasm of cervix (procedure) [code = [id number]] [facility] Scheduled Test 1991-01-14 00:00:00 DTAP/TDAP/TD VACCINES (1 - Tdap) [code = DTAP/TDAP/TD VACCINES (1 - Tdap)] [facility] Scheduled Test 1991-01-14 00:00:00 DTAP/TDAP/TD VACCINES (1 - Tdap) [code = DTAP/TDAP/TD VACCINES (1 - Tdap)] [facility] Scheduled Test 1991-01-14 00:00:00 DTAP/TDAP/TD VACCINES (1 - Tdap) [code = DTAP/TDAP/TD VACCINES (1 - Tdap)] [facility] Scheduled Test 1991-01-14 00:00:00 DTAP/TDAP/TD VACCINES (1 - Tdap) [code = DTAP/TDAP/TD VACCINES (1 - Tdap)] [facility] Scheduled Test 1991-01-14 00:00:00 DTAP/TDAP/TD VACCINES (1 - Tdap) [code = DTAP/TDAP/TD VACCINES (1 - Tdap)] [facility] Scheduled Test 1991-01-14 00:00:00 DTAP/TDAP/TD VACCINES (1 - Tdap) [code = DTAP/TDAP/TD VACCINES (1 - Tdap)] [facility] Scheduled Test 1991-01-14 00:00:00 DTAP/TDAP/TD VACCINES (1 - Tdap) [code = DTAP/TDAP/TD VACCINES (1 - Tdap)] [facility] Scheduled Test 1991-01-14 00:00:00 DTAP/TDAP/TD VACCINES (1 - Tdap) [code = DTAP/TDAP/TD VACCINES (1 - Tdap)] [facility] Scheduled Test 1991-01-14 00:00:00 DTAP/TDAP/TD VACCINES (1 - Tdap) [code = DTAP/TDAP/TD VACCINES (1 - Tdap)] [facility] Scheduled Test 1991-01-14 00:00:00 DTAP/TDAP/TD VACCINES (1 - Tdap) [code = DTAP/TDAP/TD VACCINES (1 - Tdap)] [facility] Scheduled Test 1991-01-14 00:00:00 DTAP/TDAP/TD VACCINES (1 - Tdap) [code = DTAP/TDAP/TD VACCINES (1 - Tdap)] [facility] Scheduled Test 1991-01-14 00:00:00 DTAP/TDAP/TD VACCINES (1 - Tdap) [code = DTAP/TDAP/TD VACCINES (1 - Tdap)] [facility] Scheduled Test 1991-01-14 00:00:00 DTAP/TDAP/TD VACCINES (1 - Tdap) [code = DTAP/TDAP/TD VACCINES (1 - Tdap)] [facility] Scheduled Test 1991-01-14 00:00:00 DTAP/TDAP/TD VACCINES (1 - Tdap) [code = DTAP/TDAP/TD VACCINES (1 - Tdap)] [facility] Scheduled Test 1991-01-14 00:00:00 DTAP/TDAP/TD VACCINES (1 - Tdap) [code = DTAP/TDAP/TD VACCINES (1 - Tdap)] [facility] Scheduled Test 1991-01-14 00:00:00 DTAP/TDAP/TD VACCINES (1 - Tdap) [code = DTAP/TDAP/TD VACCINES (1 - Tdap)] [facility] Scheduled Test 1991-01-14 00:00:00 DTAP/TDAP/TD VACCINES (1 - Tdap) [code = DTAP/TDAP/TD VACCINES (1 - Tdap)] [facility] Scheduled Test 1991-01-14 00:00:00 DTAP/TDAP/TD VACCINES (1 - Tdap) [code = DTAP/TDAP/TD VACCINES (1 - Tdap)] [facility] Scheduled Test 1991-01-14 00:00:00 DTAP/TDAP/TD VACCINES (1 - Tdap) [code = DTAP/TDAP/TD VACCINES (1 - Tdap)] [facility] Scheduled Test 1991-01-14 00:00:00 DTAP/TDAP/TD VACCINES (1 - Tdap) [code = DTAP/TDAP/TD VACCINES (1 - Tdap)] [facility] Scheduled Test 1991-01-14 00:00:00 DTAP/TDAP/TD VACCINES (1 - Tdap) [code = DTAP/TDAP/TD VACCINES (1 - Tdap)] [facility] Scheduled Test 1991-01-14 00:00:00 DTAP/TDAP/TD VACCINES (1 - Tdap) [code = DTAP/TDAP/TD VACCINES (1 - Tdap)] [facility] Scheduled Test 1991-01-14 00:00:00 DTAP/TDAP/TD VACCINES (1 - Tdap) [code = DTAP/TDAP/TD VACCINES (1 - Tdap)] [facility] Scheduled Test 1991-01-14 00:00:00 DTAP/TDAP/TD VACCINES (1 - Tdap) [code = DTAP/TDAP/TD VACCINES (1 - Tdap)] [facility] Scheduled Test 1991-01-14 00:00:00 DTAP/TDAP/TD VACCINES (1 - Tdap) [code = DTAP/TDAP/TD VACCINES (1 - Tdap)] [facility] Scheduled Test 1991-01-14 00:00:00 DTAP/TDAP/TD VACCINES (1 - Tdap) [code = DTAP/TDAP/TD VACCINES (1 - Tdap)] [facility] Scheduled Test 1991-01-14 00:00:00 DTAP/TDAP/TD VACCINES (1 - Tdap) [code = DTAP/TDAP/TD VACCINES (1 - Tdap)] [facility] Scheduled Test 1991-01-14 00:00:00 DTAP/TDAP/TD VACCINES (1 - Tdap) [code = DTAP/TDAP/TD VACCINES (1 - Tdap)] [facility] Scheduled Test 1991-01-14 00:00:00 DTAP/TDAP/TD VACCINES (1 - Tdap) [code = DTAP/TDAP/TD VACCINES (1 - Tdap)] [facility] Scheduled Test 1991-01-14 00:00:00 DTAP/TDAP/TD VACCINES (1 - Tdap) [code = DTAP/TDAP/TD VACCINES (1 - Tdap)] [facility] Scheduled Test 1991-01-14 00:00:00 DTAP/TDAP/TD VACCINES (1 - Tdap) [code = DTAP/TDAP/TD VACCINES (1 - Tdap)] [facility] Scheduled Test 1991-01-14 00:00:00 DTAP/TDAP/TD VACCINES (1 - Tdap) [code = DTAP/TDAP/TD VACCINES (1 - Tdap)] [facility] Scheduled Test 1991-01-14 00:00:00 DTAP/TDAP/TD VACCINES (1 - Tdap) [code = DTAP/TDAP/TD VACCINES (1 - Tdap)] [facility] Scheduled Test 1991-01-14 00:00:00 DTAP/TDAP/TD VACCINES (1 - Tdap) [code = DTAP/TDAP/TD VACCINES (1 - Tdap)] [facility] Scheduled Test 1991-01-14 00:00:00 DTAP/TDAP/TD VACCINES (1 - Tdap) [code = DTAP/TDAP/TD VACCINES (1 - Tdap)] [facility] Scheduled Test 1991-01-14 00:00:00 DTAP/TDAP/TD VACCINES (1 - Tdap) [code = DTAP/TDAP/TD VACCINES (1 - Tdap)] [facility] Scheduled Test 1991-01-14 00:00:00 DTAP/TDAP/TD VACCINES (1 - Tdap) [code = DTAP/TDAP/TD VACCINES (1 - Tdap)] [facility] Scheduled Test 1991-01-14 00:00:00 DTAP/TDAP/TD VACCINES (1 - Tdap) [code = DTAP/TDAP/TD VACCINES (1 - Tdap)] [facility] Scheduled Test 1991-01-14 00:00:00 DTAP/TDAP/TD VACCINES (1 - Tdap) [code = DTAP/TDAP/TD VACCINES (1 - Tdap)] [facility] Scheduled Test 1991-01-14 00:00:00 DTAP/TDAP/TD VACCINES (1 - Tdap) [code = DTAP/TDAP/TD VACCINES (1 - Tdap)] [facility] Scheduled Test 1991-01-14 00:00:00 DTAP/TDAP/TD VACCINES (1 - Tdap) [code = DTAP/TDAP/TD VACCINES (1 - Tdap)] [facility] Scheduled Test 1991-01-14 00:00:00 DTAP/TDAP/TD VACCINES (1 - Tdap) [code = DTAP/TDAP/TD VACCINES (1 - Tdap)] [facility] Scheduled Test 1991-01-14 00:00:00 DTAP/TDAP/TD VACCINES (1 - Tdap) [code = DTAP/TDAP/TD VACCINES (1 - Tdap)] [facility] Scheduled Test 1991-01-14 00:00:00 DTAP/TDAP/TD VACCINES (1 - Tdap) [code = DTAP/TDAP/TD VACCINES (1 - Tdap)] [facility] Scheduled Test 1991-01-14 00:00:00 DTAP/TDAP/TD VACCINES (1 - Tdap) [code = DTAP/TDAP/TD VACCINES (1 - Tdap)] [facility] Scheduled Test 1991-01-14 00:00:00 DTAP/TDAP/TD VACCINES (1 - Tdap) [code = DTAP/TDAP/TD VACCINES (1 - Tdap)] [facility] Scheduled Test 1991-01-14 00:00:00 DTAP/TDAP/TD VACCINES (1 - Tdap) [code = DTAP/TDAP/TD VACCINES (1 - Tdap)] [facility] Scheduled Test 1991-01-14 00:00:00 DTAP/TDAP/TD VACCINES (1 - Tdap) [code = DTAP/TDAP/TD VACCINES (1 - Tdap)] [facility] Scheduled Test 1991-01-14 00:00:00 DTAP/TDAP/TD VACCINES (1 - Tdap) [code = DTAP/TDAP/TD VACCINES (1 - Tdap)] [facility] Scheduled Test 1991-01-14 00:00:00 DTAP/TDAP/TD VACCINES (1 - Tdap) [code = DTAP/TDAP/TD VACCINES (1 - Tdap)] [facility] Scheduled Test 1991-01-14 00:00:00 DTAP/TDAP/TD VACCINES (1 - Tdap) [code = DTAP/TDAP/TD VACCINES (1 - Tdap)] [facility] Scheduled Test 1991-01-14 00:00:00 DTAP/TDAP/TD VACCINES (1 - Tdap) [code = DTAP/TDAP/TD VACCINES (1 - Tdap)] [facility] Scheduled Test 1991-01-14 00:00:00 DTAP/TDAP/TD VACCINES (1 - Tdap) [code = DTAP/TDAP/TD VACCINES (1 - Tdap)] [facility] Scheduled Test 1991-01-14 00:00:00 DTAP/TDAP/TD VACCINES (1 - Tdap) [code = DTAP/TDAP/TD VACCINES (1 - Tdap)] [facility] Scheduled Test 1991-01-14 00:00:00 DTAP/TDAP/TD VACCINES (1 - Tdap) [code = DTAP/TDAP/TD VACCINES (1 - Tdap)] [facility] Scheduled Test 1991-01-14 00:00:00 DTAP/TDAP/TD VACCINES (1 - Tdap) [code = DTAP/TDAP/TD VACCINES (1 - Tdap)] [facility] Scheduled Test 1991-01-14 00:00:00 DTAP/TDAP/TD VACCINES (1 - Tdap) [code = DTAP/TDAP/TD VACCINES (1 - Tdap)] [facility] Scheduled Test 1991-01-14 00:00:00 DTAP/TDAP/TD VACCINES (1 - Tdap) [code = DTAP/TDAP/TD VACCINES (1 - Tdap)] [facility] Scheduled Test 1991-01-14 00:00:00 DTAP/TDAP/TD VACCINES (1 - Tdap) [code = DTAP/TDAP/TD VACCINES (1 - Tdap)] [facility] Scheduled Test 1991-01-14 00:00:00 DTAP/TDAP/TD VACCINES (1 - Tdap) [code = DTAP/TDAP/TD VACCINES (1 - Tdap)] [facility] Scheduled Test 1991-01-14 00:00:00 DTAP/TDAP/TD VACCINES (1 - Tdap) [code = DTAP/TDAP/TD VACCINES (1 - Tdap)] [facility] Scheduled Test 1991-01-14 00:00:00 DTAP/TDAP/TD VACCINES (1 - Tdap) [code = DTAP/TDAP/TD VACCINES (1 - Tdap)] [facility] Scheduled Test 1991-01-14 00:00:00 DTAP/TDAP/TD VACCINES (1 - Tdap) [code = DTAP/TDAP/TD VACCINES (1 - Tdap)] [facility] Scheduled Test 1991-01-14 00:00:00 DTAP/TDAP/TD VACCINES (1 - Tdap) [code = DTAP/TDAP/TD VACCINES (1 - Tdap)] [facility] Scheduled Test 1991-01-14 00:00:00 DTAP/TDAP/TD VACCINES (1 - Tdap) [code = DTAP/TDAP/TD VACCINES (1 - Tdap)] [facility] Scheduled Test 1991-01-14 00:00:00 DTAP/TDAP/TD VACCINES (1 - Tdap) [code = DTAP/TDAP/TD VACCINES (1 - Tdap)] [facility] Scheduled Test 1991-01-14 00:00:00 DTAP/TDAP/TD VACCINES (1 - Tdap) [code = DTAP/TDAP/TD VACCINES (1 - Tdap)] [facility] Scheduled Test 1991-01-14 00:00:00 DTAP/TDAP/TD VACCINES (1 - Tdap) [code = DTAP/TDAP/TD VACCINES (1 - Tdap)] [facility] Scheduled Test 1991-01-14 00:00:00 DTAP/TDAP/TD VACCINES (1 - Tdap) [code = DTAP/TDAP/TD VACCINES (1 - Tdap)] [facility] Scheduled Test 1991-01-14 00:00:00 DTAP/TDAP/TD VACCINES (1 - Tdap) [code = DTAP/TDAP/TD VACCINES (1 - Tdap)] [facility] Scheduled Test 1990-01-14 00:00:00 HEPATITIS C SCREENING [code = HEPATITIS C SCREENING] [facility] Scheduled Test 1990-01-14 00:00:00 HEPATITIS C SCREENING [code = HEPATITIS C SCREENING] [facility] Scheduled Test 1990-01-14 00:00:00 HEPATITIS C SCREENING [code = HEPATITIS C SCREENING] [facility] Scheduled Test 1990-01-14 00:00:00 HEPATITIS C SCREENING [code = HEPATITIS C SCREENING] [facility] Scheduled Test 1990-01-14 00:00:00 HEPATITIS C SCREENING [code = HEPATITIS C SCREENING] [facility] Scheduled Test 1990-01-14 00:00:00 HEPATITIS C SCREENING [code = HEPATITIS C SCREENING] [facility] Scheduled Test 1990-01-14 00:00:00 HEPATITIS C SCREENING [code = HEPATITIS C SCREENING] [facility] Scheduled Test 1990-01-14 00:00:00 HEPATITIS C SCREENING [code = HEPATITIS C SCREENING] [facility] Scheduled Test 1990-01-14 00:00:00 HEPATITIS C SCREENING [code = HEPATITIS C SCREENING] [facility] Scheduled Test 1990-01-14 00:00:00 HEPATITIS C SCREENING [code = HEPATITIS C SCREENING] [facility] Scheduled Test 1990-01-14 00:00:00 HEPATITIS C SCREENING [code = HEPATITIS C SCREENING] [facility] Scheduled Test 1990-01-14 00:00:00 HEPATITIS C SCREENING [code = HEPATITIS C SCREENING] [facility] Scheduled Test 1990-01-14 00:00:00 HEPATITIS C SCREENING [code = HEPATITIS C SCREENING] [facility] Scheduled Test 1990-01-14 00:00:00 HEPATITIS C SCREENING [code = HEPATITIS C SCREENING] [facility] Scheduled Test 1990-01-14 00:00:00 HEPATITIS C SCREENING [code = HEPATITIS C SCREENING] [facility] Scheduled Test 1990-01-14 00:00:00 HEPATITIS C SCREENING [code = HEPATITIS C SCREENING] [facility] Scheduled Test 1990-01-14 00:00:00 HEPATITIS C SCREENING [code = HEPATITIS C SCREENING] [facility] Scheduled Test 1990-01-14 00:00:00 HEPATITIS C SCREENING [code = HEPATITIS C SCREENING] [facility] Scheduled Test 1990-01-14 00:00:00 HEPATITIS C SCREENING [code = HEPATITIS C SCREENING] [facility] Scheduled Test 1990-01-14 00:00:00 HEPATITIS C SCREENING [code = HEPATITIS C SCREENING] [facility] Scheduled Test 1990-01-14 00:00:00 HEPATITIS C SCREENING [code = HEPATITIS C SCREENING] [facility] Scheduled Test 1990-01-14 00:00:00 HEPATITIS C SCREENING [code = HEPATITIS C SCREENING] [facility] Scheduled Test 1990-01-14 00:00:00 HEPATITIS C SCREENING [code = HEPATITIS C SCREENING] [facility] Scheduled Test 1990-01-14 00:00:00 HEPATITIS C SCREENING [code = HEPATITIS C SCREENING] [facility] Scheduled Test 1990-01-14 00:00:00 HEPATITIS C SCREENING [code = HEPATITIS C SCREENING] [facility] Scheduled Test 1990-01-14 00:00:00 HEPATITIS C SCREENING [code = HEPATITIS C SCREENING] [facility] Scheduled Test 1990-01-14 00:00:00 HEPATITIS C SCREENING [code = HEPATITIS C SCREENING] [facility] Scheduled Test 1990-01-14 00:00:00 HEPATITIS C SCREENING [code = HEPATITIS C SCREENING] [facility] Scheduled Test 1990-01-14 00:00:00 HEPATITIS C SCREENING [code = HEPATITIS C SCREENING] [facility] Scheduled Test 1990-01-14 00:00:00 HEPATITIS C SCREENING [code = HEPATITIS C SCREENING] [facility] Scheduled Test 1990-01-14 00:00:00 HEPATITIS C SCREENING [code = HEPATITIS C SCREENING] [facility] Scheduled Test 1990-01-14 00:00:00 HEPATITIS C SCREENING [code = HEPATITIS C SCREENING] [facility] Scheduled Test 1990-01-14 00:00:00 HEPATITIS C SCREENING [code = HEPATITIS C SCREENING] [facility] Scheduled Test 1990-01-14 00:00:00 HEPATITIS C SCREENING [code = HEPATITIS C SCREENING] [facility] Scheduled Test 1990-01-14 00:00:00 HEPATITIS C SCREENING [code = HEPATITIS C SCREENING] [facility] Scheduled Test 1990-01-14 00:00:00 HEPATITIS C SCREENING [code = HEPATITIS C SCREENING] [facility] Scheduled Test 1990-01-14 00:00:00 HEPATITIS C SCREENING [code = HEPATITIS C SCREENING] [facility] Scheduled Test 1990-01-14 00:00:00 HEPATITIS C SCREENING [code = HEPATITIS C SCREENING] [facility] Scheduled Test 1990-01-14 00:00:00 HEPATITIS C SCREENING [code = HEPATITIS C SCREENING] [facility] Scheduled Test 1990-01-14 00:00:00 HEPATITIS C SCREENING [code = HEPATITIS C SCREENING] [facility] Scheduled Test 1990-01-14 00:00:00 HEPATITIS C SCREENING [code = HEPATITIS C SCREENING] [facility] Scheduled Test 1990-01-14 00:00:00 HEPATITIS C SCREENING [code = HEPATITIS C SCREENING] [facility] Scheduled Test 1990-01-14 00:00:00 HEPATITIS C SCREENING [code = HEPATITIS C SCREENING] [facility] Scheduled Test 1990-01-14 00:00:00 HEPATITIS C SCREENING [code = HEPATITIS C SCREENING] [facility] Scheduled Test 1990-01-14 00:00:00 HEPATITIS C SCREENING [code = HEPATITIS C SCREENING] [facility] Scheduled Test 1990-01-14 00:00:00 HEPATITIS C SCREENING [code = HEPATITIS C SCREENING] [facility] Scheduled Test 1990-01-14 00:00:00 HEPATITIS C SCREENING [code = HEPATITIS C SCREENING] [facility] Scheduled Test 1990-01-14 00:00:00 HEPATITIS C SCREENING [code = HEPATITIS C SCREENING] [facility] Scheduled Test 1990-01-14 00:00:00 HEPATITIS C SCREENING [code = HEPATITIS C SCREENING] [facility] Scheduled Test 1990-01-14 00:00:00 HEPATITIS C SCREENING [code = HEPATITIS C SCREENING] [facility] Scheduled Test 1990-01-14 00:00:00 HEPATITIS C SCREENING [code = HEPATITIS C SCREENING] [facility] Scheduled Test 1990-01-14 00:00:00 HEPATITIS C SCREENING [code = HEPATITIS C SCREENING] [facility] Scheduled Test 1990-01-14 00:00:00 HEPATITIS C SCREENING [code = HEPATITIS C SCREENING] [facility] Scheduled Test 1990-01-14 00:00:00 HEPATITIS C SCREENING [code = HEPATITIS C SCREENING] [facility] Scheduled Test 1990-01-14 00:00:00 HEPATITIS C SCREENING [code = HEPATITIS C SCREENING] [facility] Scheduled Test 1990-01-14 00:00:00 HEPATITIS C SCREENING [code = HEPATITIS C SCREENING] [facility] Scheduled Test 1990-01-14 00:00:00 HEPATITIS C SCREENING [code = HEPATITIS C SCREENING] [facility] Scheduled Test 1990-01-14 00:00:00 HEPATITIS C SCREENING [code = HEPATITIS C SCREENING] [facility] Scheduled Test 1990-01-14 00:00:00 HEPATITIS C SCREENING [code = HEPATITIS C SCREENING] [facility] Scheduled Test 1990-01-14 00:00:00 HEPATITIS C SCREENING [code = HEPATITIS C SCREENING] [facility] Scheduled Test 1990-01-14 00:00:00 HEPATITIS C SCREENING [code = HEPATITIS C SCREENING] [facility] Scheduled Test 1990-01-14 00:00:00 HEPATITIS C SCREENING [code = HEPATITIS C SCREENING] [facility] Scheduled Test 1990-01-14 00:00:00 HEPATITIS C SCREENING [code = HEPATITIS C SCREENING] [facility] Scheduled Test 1990-01-14 00:00:00 HEPATITIS C SCREENING [code = HEPATITIS C SCREENING] [facility] Scheduled Test 1990-01-14 00:00:00 HEPATITIS C SCREENING [code = HEPATITIS C SCREENING] [facility] Scheduled Test 1990-01-14 00:00:00 HEPATITIS C SCREENING [code = HEPATITIS C SCREENING] [facility] Scheduled Test 1990-01-14 00:00:00 HEPATITIS C SCREENING [code = HEPATITIS C SCREENING] [facility] Scheduled Test 1990-01-14 00:00:00 HEPATITIS C SCREENING [code = HEPATITIS C SCREENING] [facility] Scheduled Test 1990-01-14 00:00:00 HEPATITIS C SCREENING [code = HEPATITIS C SCREENING] [facility] Scheduled Test 1990-01-14 00:00:00 HEPATITIS C SCREENING [code = HEPATITIS C SCREENING] [facility] Scheduled Test 1987-01-14 00:00:00 Human immunodeficiency virus screening (procedure) [code = [id number]] [facility] Scheduled Test 1987-01-14 00:00:00 Human immunodeficiency virus screening (procedure) [code = [id number]] [facility] Scheduled Test 1984 00:00:00 Tobacco Cessation Counseling and Screening (12+) [code = Tobacco Cessation Counseling and Screening (12+)] [facility] Scheduled Test 1984 00:00:00 Tobacco Cessation Counseling and Screening (12+) [code = Tobacco Cessation Counseling and Screening (12+)] [facility] Scheduled Test 1984 00:00:00 Tobacco Cessation Counseling and Screening (12+) [code = Tobacco Cessation Counseling and Screening (12+)] [facility] Scheduled Test 1984 00:00:00 Tobacco Cessation Counseling and Screening (12+) [code = Tobacco Cessation Counseling and Screening (12+)] [facility] Scheduled Test 1984 00:00:00 Tobacco Cessation Counseling and Screening (12+) [code = Tobacco Cessation Counseling and Screening (12+)] [facility] Scheduled Test 1984 00:00:00 Tobacco Cessation Counseling and Screening (12+) [code = Tobacco Cessation Counseling and Screening (12+)] [facility] Scheduled Test 1984 00:00:00 Tobacco Cessation Counseling and Screening (12+) [code = Tobacco Cessation Counseling and Screening (12+)] [facility] Scheduled Test 1984 00:00:00 Tobacco Cessation Counseling and Screening (12+) [code = Tobacco Cessation Counseling and Screening (12+)] [facility] Scheduled Test 1984 00:00:00 Tobacco Cessation Counseling and Screening (12+) [code = Tobacco Cessation Counseling and Screening (12+)] [facility] Scheduled Test 1984 00:00:00 Tobacco Cessation Counseling and Screening (12+) [code = Tobacco Cessation Counseling and Screening (12+)] [facility] Scheduled Test 1984 00:00:00 Tobacco Cessation Counseling and Screening (12+) [code = Tobacco Cessation Counseling and Screening (12+)] [facility] Scheduled Test 1984 00:00:00 Tobacco Cessation Counseling and Screening (12+) [code = Tobacco Cessation Counseling and Screening (12+)] [facility] Scheduled Test 1984 00:00:00 Tobacco Cessation Counseling and Screening (12+) [code = Tobacco Cessation Counseling and Screening (12+)] [facility] Scheduled Test 1984 00:00:00 Tobacco Cessation Counseling and Screening (12+) [code = Tobacco Cessation Counseling and Screening (12+)] [facility] Scheduled Test 1984 00:00:00 Tobacco Cessation Counseling and Screening (12+) [code = Tobacco Cessation Counseling and Screening (12+)] [facility] Scheduled Test 1984 00:00:00 Tobacco Cessation Counseling and Screening (12+) [code = Tobacco Cessation Counseling and Screening (12+)] [facility] Scheduled Test 1984 00:00:00 Tobacco Cessation Counseling and Screening (12+) [code = Tobacco Cessation Counseling and Screening (12+)] [facility] Scheduled Test 1984 00:00:00 Tobacco Cessation Counseling and Screening (12+) [code = Tobacco Cessation Counseling and Screening (12+)] [facility] Scheduled Test 1984 00:00:00 Tobacco Cessation Counseling and Screening (12+) [code = Tobacco Cessation Counseling and Screening (12+)] [facility] Scheduled Test 1984 00:00:00 Tobacco Cessation Counseling and Screening (12+) [code = Tobacco Cessation Counseling and Screening (12+)] [facility] Scheduled Test 1984 00:00:00 Tobacco Cessation Counseling and Screening (12+) [code = Tobacco Cessation Counseling and Screening (12+)] [facility] Scheduled Test 1984 00:00:00 Tobacco Cessation Counseling and Screening (12+) [code = Tobacco Cessation Counseling and Screening (12+)] [facility] Scheduled Test 1984 00:00:00 Tobacco Cessation Counseling and Screening (12+) [code = Tobacco Cessation Counseling and Screening (12+)] [facility] Scheduled Test 1972 00:00:00 Screening for malignant neoplasm of breast (procedure) [code = [id number]] [facility] Scheduled Test 1972 00:00:00 CT Colonography (combo) [code = CT Colonography (combo)] [facility] Scheduled Test 1972 00:00:00 Screening for malignant neoplasm of colon (procedure) [code = [id number]] [facility] Future Scheduled Test 1972 00:00:00 Screening for malignant neoplasm of colon (procedure) [code = 657324670] [facility] Scheduled Test 1972 00:00:00 Screening for malignant neoplasm of colon (procedure) [code = 726967466] [facility] Future Scheduled Test 1972 00:00:00 Screening for malignant neoplasm of colon (procedure) [code = 542484587] [facility] Future Scheduled Test 1972 00:00:00 Sigmoidoscopy [code = Sigmoidoscopy] [facility] Scheduled Test 1972 00:00:00 Screening for malignant neoplasm of breast (procedure) [code = 521545063] [facility] Scheduled Test 1972 00:00:00 CT Colonography (combo) [code = CT Colonography (combo)] [facility] Scheduled Test 1972 00:00:00 Screening for malignant neoplasm of colon (procedure) [code = 896241084] [facility] Scheduled Test 1972 00:00:00 Screening for malignant neoplasm of colon (procedure) [code = 689327610] [facility] Scheduled Test 1972 00:00:00 Screening for malignant neoplasm of colon (procedure) [code = 286007359] [facility] Scheduled Test 1972 00:00:00 Screening for malignant neoplasm of colon (procedure) [code = 412089198] [facility] Scheduled Test 1972 00:00:00 Sigmoidoscopy [code = Sigmoidoscopy] [facility] Scheduled Test 1972 00:00:00 Screening for malignant neoplasm of breast (procedure) [code = 585536235] [facility] Scheduled Test 1972 00:00:00 CT Colonography (combo) [code = CT Colonography (combo)] [facility] Scheduled Test 1972 00:00:00 Screening for malignant neoplasm of colon (procedure) [code = 717314545] [facility] Scheduled Test 1972 00:00:00 Screening for malignant neoplasm of colon (procedure) [code = 253024821] [facility] Scheduled Test 1972 00:00:00 Screening for malignant neoplasm of colon (procedure) [code = 605260590] [facility] Scheduled Test 1972 00:00:00 Screening for malignant neoplasm of colon (procedure) [code = 019335848] [facility] Scheduled Test 1972 00:00:00 Sigmoidoscopy [code = Sigmoidoscopy] [facility] Scheduled Test 1972 00:00:00 Screening for malignant neoplasm of breast (procedure) [code = 421613573] [facility] Scheduled Test 1972 00:00:00 CT Colonography (combo) [code = CT Colonography (combo)] [facility] Scheduled Test 1972 00:00:00 Screening for malignant neoplasm of colon (procedure) [code = 009242831] [facility] Scheduled Test 1972 00:00:00 Screening for malignant neoplasm of colon (procedure) [code = 144027304] [facility] Scheduled Test 1972 00:00:00 Screening for malignant neoplasm of colon (procedure) [code = 412577762] [facility] Scheduled Test 1972 00:00:00 Screening for malignant neoplasm of colon (procedure) [code = 255616443] [facility] Scheduled Test 1972 00:00:00 Sigmoidoscopy [code = Sigmoidoscopy] [facility] Scheduled Test 1972 00:00:00 Screening for malignant neoplasm of breast (procedure) [code = 257832594] [facility] Scheduled Test 1972 00:00:00 CT Colonography (combo) [code = CT Colonography (combo)] [facility] Scheduled Test 1972 00:00:00 Screening for malignant neoplasm of colon (procedure) [code = 204374600] [facility] Scheduled Test 1972 00:00:00 Screening for malignant neoplasm of colon (procedure) [code = 312864327] [facility] Scheduled Test 1972 00:00:00 Screening for malignant neoplasm of colon (procedure) [code = 279952497] [facility] Scheduled Test 1972 00:00:00 Screening for malignant neoplasm of colon (procedure) [code = 006209643] [facility] Scheduled Test 1972 00:00:00 Sigmoidoscopy [code = Sigmoidoscopy] [facility] Scheduled Test 1972 00:00:00 Screening for malignant neoplasm of breast (procedure) [code = 527590590] [facility] Scheduled Test 1972 00:00:00 CT Colonography (combo) [code = CT Colonography (combo)] [facility] Scheduled Test 1972 00:00:00 Screening for malignant neoplasm of colon (procedure) [code = 912594570] [facility] Scheduled Test 1972 00:00:00 Screening for malignant neoplasm of colon (procedure) [code = 421380625] [facility] Scheduled Test 1972 00:00:00 Screening for malignant neoplasm of colon (procedure) [code = 335494657] [facility] Scheduled Test 1972 00:00:00 Screening for malignant neoplasm of colon (procedure) [code = 907272405] [facility] Scheduled Test 1972 00:00:00 Sigmoidoscopy [code = Sigmoidoscopy] [facility] Scheduled Test 1972 00:00:00 Screening for malignant neoplasm of breast (procedure) [code = 315082876] [facility] Scheduled Test 1972 00:00:00 CT Colonography (combo) [code = CT Colonography (combo)] [facility] Scheduled Test 1972 00:00:00 Screening for malignant neoplasm of colon (procedure) [code = 890838083] [facility] Scheduled Test 1972 00:00:00 Screening for malignant neoplasm of colon (procedure) [code = 196740206] [facility] Scheduled Test 1972 00:00:00 Screening for malignant neoplasm of colon (procedure) [code = 293063702] [facility] Scheduled Test 1972 00:00:00 Screening for malignant neoplasm of colon (procedure) [code = 089980885] [facility] Scheduled Test 1972 00:00:00 Sigmoidoscopy [code = Sigmoidoscopy] [facility] Scheduled Test 1972 00:00:00 Screening for malignant neoplasm of breast (procedure) [code = 486359877] [facility] Scheduled Test 1972 00:00:00 CT Colonography (combo) [code = CT Colonography (combo)] [facility] Scheduled Test 1972 00:00:00 Screening for malignant neoplasm of colon (procedure) [code = 575941483] [facility] Scheduled Test 1972 00:00:00 Screening for malignant neoplasm of colon (procedure) [code = 379846989] [facility] Scheduled Test 1972 00:00:00 Screening for malignant neoplasm of colon (procedure) [code = 295253826] [facility] Scheduled Test 1972 00:00:00 Screening for malignant neoplasm of colon (procedure) [code = 374765991] [facility] Scheduled Test 1972 00:00:00 Sigmoidoscopy [code = Sigmoidoscopy] [facility] Scheduled Test 1972 00:00:00 Screening for malignant neoplasm of breast (procedure) [code = 855538727] [facility] Scheduled Test 1972 00:00:00 CT Colonography (combo) [code = CT Colonography (combo)] [facility] Scheduled Test 1972 00:00:00 Screening for malignant neoplasm of colon (procedure) [code = 354901714] [facility] Scheduled Test 1972 00:00:00 Screening for malignant neoplasm of colon (procedure) [code = 908491833] [facility] Scheduled Test 1972 00:00:00 Screening for malignant neoplasm of colon (procedure) [code = 379996430] [facility] Scheduled Test 1972 00:00:00 Screening for malignant neoplasm of colon (procedure) [code = 934475980] [facility] Scheduled Test 1972 00:00:00 Sigmoidoscopy [code = Sigmoidoscopy] [facility] Scheduled Test 1972 00:00:00 Screening for malignant neoplasm of breast (procedure) [code = 166077259] [facility] Scheduled Test 1972 00:00:00 CT Colonography (combo) [code = CT Colonography (combo)] [facility] Scheduled Test 1972 00:00:00 Screening for malignant neoplasm of colon (procedure) [code = 006057932] [facility] Scheduled Test 1972 00:00:00 Screening for malignant neoplasm of colon (procedure) [code = 088450197] [facility] Scheduled Test 1972 00:00:00 Screening for malignant neoplasm of colon (procedure) [code = 873430814] [facility] Scheduled Test 1972 00:00:00 Screening for malignant neoplasm of colon (procedure) [code = 088705841] [facility] Scheduled Test 1972 00:00:00 Sigmoidoscopy [code = Sigmoidoscopy] [facility] Scheduled Test 1972 00:00:00 Screening for malignant neoplasm of breast (procedure) [code = 757586561] [facility] Scheduled Test 1972 00:00:00 CT Colonography (combo) [code = CT Colonography (combo)] [facility] Scheduled Test 1972 00:00:00 Screening for malignant neoplasm of colon (procedure) [code = 459391357] [facility] Scheduled Test 1972 00:00:00 Screening for malignant neoplasm of colon (procedure) [code = 512848450] [facility] Scheduled Test 1972 00:00:00 Screening for malignant neoplasm of colon (procedure) [code = 488632826] [facility] Scheduled Test 1972 00:00:00 Screening for malignant neoplasm of colon (procedure) [code = 499198389] [facility] Scheduled Test 1972 00:00:00 Sigmoidoscopy [code = Sigmoidoscopy] [facility] Scheduled Test 1972 00:00:00 Screening for malignant neoplasm of breast (procedure) [code = 353960688] [facility] Scheduled Test 1972 00:00:00 CT Colonography (combo) [code = CT Colonography (combo)] [facility] Scheduled Test 1972 00:00:00 Screening for malignant neoplasm of colon (procedure) [code = 341611178] [facility] Scheduled Test 1972 00:00:00 Screening for malignant neoplasm of colon (procedure) [code = 531697911] [facility] Scheduled Test 1972 00:00:00 Screening for malignant neoplasm of colon (procedure) [code = 114274530] [facility] Scheduled Test 1972 00:00:00 Screening for malignant neoplasm of colon (procedure) [code = 860893902] [facility] Scheduled Test 1972 00:00:00 Sigmoidoscopy [code = Sigmoidoscopy] [facility] Scheduled Test 1972 00:00:00 Screening for malignant neoplasm of breast (procedure) [code = 357144253] [facility] Scheduled Test 1972 00:00:00 CT Colonography (combo) [code = CT Colonography (combo)] [facility] Scheduled Test 1972 00:00:00 Screening for malignant neoplasm of colon (procedure) [code = 541635983] [facility] Scheduled Test 1972 00:00:00 Screening for malignant neoplasm of colon (procedure) [code = 876269183] [facility] Scheduled Test 1972 00:00:00 Screening for malignant neoplasm of colon (procedure) [code = 871115088] [facility] Scheduled Test 1972 00:00:00 Screening for malignant neoplasm of colon (procedure) [code = 623720498] [facility] Scheduled Test 1972 00:00:00 Sigmoidoscopy [code = Sigmoidoscopy] [facility] Scheduled Test 1972 00:00:00 Screening for malignant neoplasm of breast (procedure) [code = 205278920] [facility] Scheduled Test 1972 00:00:00 CT Colonography (combo) [code = CT Colonography (combo)] [facility] Scheduled Test 1972 00:00:00 Screening for malignant neoplasm of colon (procedure) [code = 152398270] [facility] Scheduled Test 1972 00:00:00 Screening for malignant neoplasm of colon (procedure) [code = 488912348] [facility] Scheduled Test 1972 00:00:00 Screening for malignant neoplasm of colon (procedure) [code = 733969078] [facility] Scheduled Test 1972 00:00:00 Screening for malignant neoplasm of colon (procedure) [code = 836673120] [facility] Scheduled Test 1972 00:00:00 Sigmoidoscopy [code = Sigmoidoscopy] [facility] Scheduled Test 1972 00:00:00 Screening for malignant neoplasm of breast (procedure) [code = 410638677] [facility] Scheduled Test 1972 00:00:00 CT Colonography (combo) [code = CT Colonography (combo)] [facility] Scheduled Test 1972 00:00:00 Screening for malignant neoplasm of colon (procedure) [code = 813838072] [facility] Scheduled Test 1972 00:00:00 Screening for malignant neoplasm of colon (procedure) [code = 843376242] [facility] Scheduled Test 1972 00:00:00 Screening for malignant neoplasm of colon (procedure) [code = 912459493] [facility] Scheduled Test 1972 00:00:00 Screening for malignant neoplasm of colon (procedure) [code = 311839550] [facility] Scheduled Test 1972 00:00:00 Sigmoidoscopy [code = Sigmoidoscopy] [facility] Scheduled Test 1972 00:00:00 Screening for malignant neoplasm of breast (procedure) [code = 248580355] [facility] Scheduled Test 1972 00:00:00 CT Colonography (combo) [code = CT Colonography (combo)] [facility] Scheduled Test 1972 00:00:00 Screening for malignant neoplasm of colon (procedure) [code = 908195987] [facility] Scheduled Test 1972 00:00:00 Screening for malignant neoplasm of colon (procedure) [code = 976989326] [facility] Scheduled Test 1972 00:00:00 Screening for malignant neoplasm of colon (procedure) [code = 830776789] [facility] Scheduled Test 1972 00:00:00 Screening for malignant neoplasm of colon (procedure) [code = 981178490] [facility] Scheduled Test 1972 00:00:00 Sigmoidoscopy [code = Sigmoidoscopy] [facility] Scheduled Test 1972 00:00:00 Screening for malignant neoplasm of breast (procedure) [code = 441637861] [facility] Scheduled Test 1972 00:00:00 CT Colonography (combo) [code = CT Colonography (combo)] [facility] Scheduled Test 1972 00:00:00 Screening for malignant neoplasm of colon (procedure) [code = 474217999] [facility] Scheduled Test 1972 00:00:00 Screening for malignant neoplasm of colon (procedure) [code = 582557272] [facility] Scheduled Test 1972 00:00:00 Screening for malignant neoplasm of colon (procedure) [code = 060216480] [facility] Scheduled Test 1972 00:00:00 Screening for malignant neoplasm of colon (procedure) [code = 597885632] [facility] Scheduled Test 1972 00:00:00 Sigmoidoscopy [code = Sigmoidoscopy] [facility] Scheduled Test 1972 00:00:00 Screening for malignant neoplasm of breast (procedure) [code = 225758722] [facility] Scheduled Test 1972 00:00:00 CT Colonography (combo) [code = CT Colonography (combo)] [facility] Scheduled Test 1972 00:00:00 Screening for malignant neoplasm of breast (procedure) [code = 656941162] [facility] Scheduled Test 1972 00:00:00 CT Colonography (combo) [code = CT Colonography (combo)] [facility] Scheduled Test 1972 00:00:00 Screening for malignant neoplasm of colon (procedure) [code = 713688542] [facility] Scheduled Test 1972 00:00:00 Screening for malignant neoplasm of colon (procedure) [code = 558332368] [facility] Scheduled Test 1972 00:00:00 Screening for malignant neoplasm of colon (procedure) [code = 290231081] [facility] Scheduled Test 1972 00:00:00 Screening for malignant neoplasm of colon (procedure) [code = 359988583] [facility] Scheduled Test 1972 00:00:00 Sigmoidoscopy [code = Sigmoidoscopy] [facility] Scheduled Test 1972 00:00:00 Screening for malignant neoplasm of colon (procedure) [code = 452431975] [facility] Scheduled Test 1972 00:00:00 Screening for malignant neoplasm of colon (procedure) [code = 003751062] [facility] Scheduled Test 1972 00:00:00 Screening for malignant neoplasm of colon (procedure) [code = 602123999] [facility] Scheduled Test 1972 00:00:00 Screening for malignant neoplasm of colon (procedure) [code = 269565051] [facility] Scheduled Test 1972 00:00:00 Sigmoidoscopy [code = Sigmoidoscopy] [facility] Scheduled Test 1972 00:00:00 Screening for malignant neoplasm of breast (procedure) [code = 213981151] [facility] Scheduled Test 1972 00:00:00 CT Colonography (combo) [code = CT Colonography (combo)] [facility] Scheduled Test 1972 00:00:00 Screening for malignant neoplasm of colon (procedure) [code = 240893382] [facility] Scheduled Test 1972 00:00:00 Screening for malignant neoplasm of colon (procedure) [code = 409027351] [facility] Scheduled Test 1972 00:00:00 Screening for malignant neoplasm of colon (procedure) [code = 132216934] [facility] Scheduled Test 1972 00:00:00 Screening for malignant neoplasm of colon (procedure) [code = 775490847] [facility] Scheduled Test 1972 00:00:00 Sigmoidoscopy [code = Sigmoidoscopy] [facility] Scheduled Test 1972 00:00:00 Screening for malignant neoplasm of breast (procedure) [code = 718607339] [facility] Scheduled Test 1972 00:00:00 CT Colonography (combo) [code = CT Colonography (combo)] [facility] Scheduled Test 1972 00:00:00 Screening for malignant neoplasm of colon (procedure) [code = 008843241] [facility] Scheduled Test 1972 00:00:00 Screening for malignant neoplasm of colon (procedure) [code = 973174919] [facility] Scheduled Test 1972 00:00:00 Screening for malignant neoplasm of colon (procedure) [code = 344283240] [facility] Scheduled Test 1972 00:00:00 Screening for malignant neoplasm of colon (procedure) [code = 144758582] [facility] Scheduled Test 1972 00:00:00 Sigmoidoscopy [code = Sigmoidoscopy] [facility] Scheduled Test 1972 00:00:00 Screening for malignant neoplasm of breast (procedure) [code = 954532093] [facility] Scheduled Test 1972 00:00:00 CT Colonography (combo) [code = CT Colonography (combo)] [facility] Scheduled Test 1972 00:00:00 Screening for malignant neoplasm of colon (procedure) [code = 619510907] [facility] Scheduled Test 1972 00:00:00 Screening for malignant neoplasm of colon (procedure) [code = 030777676] [facility] Scheduled Test 1972 00:00:00 Screening for malignant neoplasm of colon (procedure) [code = 417929611] [facility] Scheduled Test 1972 00:00:00 Screening for malignant neoplasm of colon (procedure) [code = 650514370] [facility] Scheduled Test 1972 00:00:00 Sigmoidoscopy [code = Sigmoidoscopy] [facility] Scheduled Test 1972 00:00:00 Screening for malignant neoplasm of breast (procedure) [code = 789735409] [facility] Scheduled Test 1972 00:00:00 CT Colonography (combo) [code = CT Colonography (combo)] [facility] Scheduled Test 1972 00:00:00 Screening for malignant neoplasm of colon (procedure) [code = 042714396] [facility] Scheduled Test 1972 00:00:00 Screening for malignant neoplasm of colon (procedure) [code = 517411469] [facility] Scheduled Test 1972 00:00:00 Screening for malignant neoplasm of colon (procedure) [code = 156610207] [facility] Scheduled Test 1972 00:00:00 Screening for malignant neoplasm of colon (procedure) [code = 226509636] [facility] Scheduled Test 1972 00:00:00 Sigmoidoscopy [code = Sigmoidoscopy] [facility] Scheduled Test 1972 00:00:00 Screening for malignant neoplasm of breast (procedure) [code = 687317324] [facility] Scheduled Test 1972 00:00:00 CT Colonography (combo) [code = CT Colonography (combo)] [facility] Scheduled Test 1972 00:00:00 Screening for malignant neoplasm of colon (procedure) [code = 418439022] [facility] Scheduled Test 1972 00:00:00 Screening for malignant neoplasm of colon (procedure) [code = 127985736] [facility] Scheduled Test 1972 00:00:00 Screening for malignant neoplasm of colon (procedure) [code = 030856090] [facility] Scheduled Test 1972 00:00:00 Screening for malignant neoplasm of colon (procedure) [code = 335626902] [facility] Scheduled Test 1972 00:00:00 Sigmoidoscopy [code = Sigmoidoscopy] [facility] Scheduled Test 1972 00:00:00 Screening for malignant neoplasm of breast (procedure) [code = 063755888] [facility] Scheduled Test 1972 00:00:00 CT Colonography (combo) [code = CT Colonography (combo)] [facility] Scheduled Test 1972 00:00:00 Screening for malignant neoplasm of colon (procedure) [code = 853570131] [facility] Scheduled Test 1972 00:00:00 Screening for malignant neoplasm of colon (procedure) [code = 663040577] [facility] Scheduled Test 1972 00:00:00 Screening for malignant neoplasm of colon (procedure) [code = 249789145] [facility] Scheduled Test 1972 00:00:00 Screening for malignant neoplasm of colon (procedure) [code = 774187477] [facility] Scheduled Test 1972 00:00:00 Sigmoidoscopy [code = Sigmoidoscopy] [facility] Scheduled Test 1972 00:00:00 Screening for malignant neoplasm of breast (procedure) [code = 365696858] [facility] Scheduled Test 1972 00:00:00 CT Colonography (combo) [code = CT Colonography (combo)] [facility] Scheduled Test 1972 00:00:00 Screening for malignant neoplasm of colon (procedure) [code = 358930931] [facility] Scheduled Test 1972 00:00:00 Screening for malignant neoplasm of colon (procedure) [code = 525737869] [facility] Scheduled Test 1972 00:00:00 Screening for malignant neoplasm of colon (procedure) [code = 533133626] [facility] Scheduled Test 1972 00:00:00 Screening for malignant neoplasm of colon (procedure) [code = 650125978] [facility] Scheduled Test 1972 00:00:00 Screening for malignant neoplasm of breast (procedure) [code = 260595377] [facility] Scheduled Test 1972 00:00:00 CT Colonography (combo) [code = CT Colonography (combo)] [facility] Scheduled Test 1972 00:00:00 Sigmoidoscopy [code = Sigmoidoscopy] [facility] Scheduled Test 1972 00:00:00 Screening for malignant neoplasm of colon (procedure) [code = 215672098] [facility] Scheduled Test 1972 00:00:00 Screening for malignant neoplasm of colon (procedure) [code = 072768307] [facility] Scheduled Test 1972 00:00:00 Screening for malignant neoplasm of colon (procedure) [code = 504473838] [facility] Scheduled Test 1972 00:00:00 Screening for malignant neoplasm of colon (procedure) [code = 016687243] [facility] Scheduled Test 1972 00:00:00 Sigmoidoscopy [code = Sigmoidoscopy] [facility] Scheduled Test 1972 00:00:00 Screening for malignant neoplasm of breast (procedure) [code = 705493224] [facility] Scheduled Test 1972 00:00:00 CT Colonography (combo) [code = CT Colonography (combo)] [facility] Scheduled Test 1972 00:00:00 Screening for malignant neoplasm of colon (procedure) [code = 846913244] [facility] Scheduled Test 1972 00:00:00 Screening for malignant neoplasm of colon (procedure) [code = [id number]] [facility] Scheduled Test 1972 00:00:00 Screening for malignant neoplasm of colon (procedure) [code = 357458806] [facility] Scheduled Test 1972 00:00:00 Screening for malignant neoplasm of colon (procedure) [code = 155600812] [facility] Scheduled Test 1972 00:00:00 Sigmoidoscopy [code = Sigmoidoscopy] [facility] Scheduled Test 1972 00:00:00 Screening for malignant neoplasm of breast (procedure) [code = 074014252] [facility] Scheduled Test 1972 00:00:00 CT Colonography (combo) [code = CT Colonography (combo)] [facility] Scheduled Test 1972 00:00:00 Screening for malignant neoplasm of colon (procedure) [code = 209955198] [facility] Scheduled Test 1972 00:00:00 Screening for malignant neoplasm of colon (procedure) [code = 417463271] [facility] Scheduled Test 1972 00:00:00 Screening for malignant neoplasm of colon (procedure) [code = 833344971] [facility] Scheduled Test 1972 00:00:00 Screening for malignant neoplasm of colon (procedure) [code = 663588881] [facility] Scheduled Test 1972 00:00:00 Sigmoidoscopy [code = Sigmoidoscopy] [facility] Scheduled Test 1972 00:00:00 Screening for malignant neoplasm of breast (procedure) [code = 124894776] [facility] Scheduled Test 1972 00:00:00 CT Colonography (combo) [code = CT Colonography (combo)] [facility] Scheduled Test 1972 00:00:00 Screening for malignant neoplasm of colon (procedure) [code = 216997005] [facility] Scheduled Test 1972 00:00:00 Screening for malignant neoplasm of colon (procedure) [code = 082895716] [facility] Scheduled Test 1972 00:00:00 Screening for malignant neoplasm of colon (procedure) [code = 443614495] [facility] Scheduled Test 1972 00:00:00 Screening for malignant neoplasm of colon (procedure) [code = 580836875] [facility] Scheduled Test 1972 00:00:00 Sigmoidoscopy [code = Sigmoidoscopy] [facility] Scheduled Test 1972 00:00:00 Screening for malignant neoplasm of breast (procedure) [code = 620058520] [facility] Scheduled Test 1972 00:00:00 CT Colonography (combo) [code = CT Colonography (combo)] [facility] Scheduled Test 1972 00:00:00 Screening for malignant neoplasm of colon (procedure) [code = 106435448] [facility] Scheduled Test 1972 00:00:00 Screening for malignant neoplasm of colon (procedure) [code = 827096929] [facility] Scheduled Test 1972 00:00:00 Screening for malignant neoplasm of colon (procedure) [code = 104972805] [facility] Scheduled Test 1972 00:00:00 Screening for malignant neoplasm of colon (procedure) [code = 123950127] [facility] Scheduled Test 1972 00:00:00 Sigmoidoscopy [code = Sigmoidoscopy] [facility] Scheduled Test 1972 00:00:00 Screening for malignant neoplasm of breast (procedure) [code = 103293106] [facility] Scheduled Test 1972 00:00:00 CT Colonography (combo) [code = CT Colonography (combo)] [facility] Scheduled Test 1972 00:00:00 Screening for malignant neoplasm of colon (procedure) [code = 118060291] [facility] Scheduled Test 1972 00:00:00 Screening for malignant neoplasm of colon (procedure) [code = 937662074] [facility] Scheduled Test 1972 00:00:00 Screening for malignant neoplasm of colon (procedure) [code = 625431700] [facility] Scheduled Test 1972 00:00:00 Screening for malignant neoplasm of colon (procedure) [code = 779413163] [facility] Scheduled Test 1972 00:00:00 Sigmoidoscopy [code = Sigmoidoscopy] [facility] Scheduled Test 1972 00:00:00 Screening for malignant neoplasm of breast (procedure) [code = 883706085] [facility] Scheduled Test 1972 00:00:00 CT Colonography (combo) [code = CT Colonography (combo)] [facility] Scheduled Test 1972 00:00:00 Screening for malignant neoplasm of colon (procedure) [code = 234784985] [facility] Scheduled Test 1972 00:00:00 Screening for malignant neoplasm of colon (procedure) [code = 620814220] [facility] Scheduled Test 1972 00:00:00 Screening for malignant neoplasm of breast (procedure) [code = 855784916] [facility] Scheduled Test 1972 00:00:00 Screening for malignant neoplasm of colon (procedure) [code = 641242582] [facility] Scheduled Test 1972 00:00:00 CT Colonography (combo) [code = CT Colonography (combo)] [facility] Scheduled Test 1972 00:00:00 Screening for malignant neoplasm of colon (procedure) [code = 193041853] [facility] Scheduled Test 1972 00:00:00 Screening for malignant neoplasm of colon (procedure) [code = 901371798] [facility] Scheduled Test 1972 00:00:00 Screening for malignant neoplasm of colon (procedure) [code = 320403633] [facility] Scheduled Test 1972 00:00:00 Screening for malignant neoplasm of colon (procedure) [code = 199483045] [facility] Scheduled Test 1972 00:00:00 Sigmoidoscopy [code = Sigmoidoscopy] [facility] Scheduled Test 1972 00:00:00 Screening for malignant neoplasm of colon (procedure) [code = 530755329] [facility] Scheduled Test 1972 00:00:00 Sigmoidoscopy [code = Sigmoidoscopy] [facility] Scheduled Test 1972 00:00:00 Screening for malignant neoplasm of breast (procedure) [code = 527438163] [facility] Scheduled Test 1972 00:00:00 CT Colonography (combo) [code = CT Colonography (combo)] [facility] Scheduled Test 1972 00:00:00 Screening for malignant neoplasm of colon (procedure) [code = 248704056] [facility] Scheduled Test 1972 00:00:00 Screening for malignant neoplasm of colon (procedure) [code = 050685365] [facility] Scheduled Test 1972 00:00:00 Screening for malignant neoplasm of colon (procedure) [code = 922391996] [facility] Scheduled Test 1972 00:00:00 Screening for malignant neoplasm of colon (procedure) [code = 201181921] [facility] Scheduled Test 1972 00:00:00 Sigmoidoscopy [code = Sigmoidoscopy] [facility] Scheduled Test 1972 00:00:00 Screening for malignant neoplasm of breast (procedure) [code = 653788436] [facility] Scheduled Test 1972 00:00:00 CT Colonography (combo) [code = CT Colonography (combo)] [facility] Scheduled Test 1972 00:00:00 Screening for malignant neoplasm of colon (procedure) [code = 131418517] [facility] Scheduled Test 1972 00:00:00 Screening for malignant neoplasm of colon (procedure) [code = 089449376] [facility] Scheduled Test 1972 00:00:00 Screening for malignant neoplasm of colon (procedure) [code = 780586104] [facility] Scheduled Test 1972 00:00:00 Screening for malignant neoplasm of colon (procedure) [code = 792925077] [facility] Scheduled Test 1972 00:00:00 Sigmoidoscopy [code = Sigmoidoscopy] [facility] Scheduled Test 1972 00:00:00 Screening for malignant neoplasm of breast (procedure) [code = 108200560] [facility] Scheduled Test 1972 00:00:00 CT Colonography (combo) [code = CT Colonography (combo)] [facility] Scheduled Test 1972 00:00:00 Screening for malignant neoplasm of colon (procedure) [code = 123459896] [facility] Scheduled Test 1972 00:00:00 Screening for malignant neoplasm of colon (procedure) [code = 763711076] [facility] Scheduled Test 1972 00:00:00 Screening for malignant neoplasm of colon (procedure) [code = 828059102] [facility] Scheduled Test 1972 00:00:00 Screening for malignant neoplasm of colon (procedure) [code = 855708700] [facility] Scheduled Test 1972 00:00:00 Sigmoidoscopy [code = Sigmoidoscopy] [facility] Scheduled Test 1972 00:00:00 Screening for malignant neoplasm of breast (procedure) [code = 752714464] [facility] Scheduled Test 1972 00:00:00 CT Colonography (combo) [code = CT Colonography (combo)] [facility] Scheduled Test 1972 00:00:00 Screening for malignant neoplasm of colon (procedure) [code = 438286706] [facility] Scheduled Test 1972 00:00:00 Screening for malignant neoplasm of colon (procedure) [code = 606827985] [facility] Scheduled Test 1972 00:00:00 Screening for malignant neoplasm of colon (procedure) [code = 301964648] [facility] Scheduled Test 1972 00:00:00 Screening for malignant neoplasm of colon (procedure) [code = 598135358] [facility] Scheduled Test 1972 00:00:00 Sigmoidoscopy [code = Sigmoidoscopy] [facility] Scheduled Test 1972 00:00:00 Screening for malignant neoplasm of breast (procedure) [code = 440305947] [facility] Scheduled Test 1972 00:00:00 CT Colonography (combo) [code = CT Colonography (combo)] [facility] Scheduled Test 1972 00:00:00 Screening for malignant neoplasm of colon (procedure) [code = 518666510] [facility] Scheduled Test 1972 00:00:00 Screening for malignant neoplasm of colon (procedure) [code = 407214039] [facility] Scheduled Test 1972 00:00:00 Screening for malignant neoplasm of colon (procedure) [code = 013699731] [facility] Scheduled Test 1972 00:00:00 Screening for malignant neoplasm of colon (procedure) [code = 602699034] [facility] Scheduled Test 1972 00:00:00 Sigmoidoscopy [code = Sigmoidoscopy] [facility] Scheduled Test 1972 00:00:00 Screening for malignant neoplasm of breast (procedure) [code = 212335185] [facility] Scheduled Test 1972 00:00:00 CT Colonography (combo) [code = CT Colonography (combo)] [facility] Scheduled Test 1972 00:00:00 Screening for malignant neoplasm of colon (procedure) [code = 245981156] [facility] Scheduled Test 1972 00:00:00 Screening for malignant neoplasm of colon (procedure) [code = 820734594] [facility] Scheduled Test 1972 00:00:00 Screening for malignant neoplasm of colon (procedure) [code = 346921941] [facility] Scheduled Test 1972 00:00:00 Screening for malignant neoplasm of colon (procedure) [code = 404559594] [facility] Scheduled Test 1972 00:00:00 Sigmoidoscopy [code = Sigmoidoscopy] [facility] Scheduled Test 1972 00:00:00 Screening for malignant neoplasm of breast (procedure) [code = 966177519] [facility] Scheduled Test 1972 00:00:00 CT Colonography (combo) [code = CT Colonography (combo)] [facility] Scheduled Test 1972 00:00:00 Screening for malignant neoplasm of colon (procedure) [code = 584689446] [facility] Scheduled Test 1972 00:00:00 Screening for malignant neoplasm of colon (procedure) [code = 855924019] [facility] Scheduled Test 1972 00:00:00 Screening for malignant neoplasm of colon (procedure) [code = 351209220] [facility] Scheduled Test 1972 00:00:00 Screening for malignant neoplasm of colon (procedure) [code = 023256757] [facility] Scheduled Test 1972 00:00:00 Sigmoidoscopy [code = Sigmoidoscopy] [facility] Scheduled Test 1972 00:00:00 Screening for malignant neoplasm of breast (procedure) [code = 657149358] [facility] Scheduled Test 1972 00:00:00 CT Colonography (combo) [code = CT Colonography (combo)] [facility] Scheduled Test 1972 00:00:00 Screening for malignant neoplasm of colon (procedure) [code = 352114175] [facility] Scheduled Test 1972 00:00:00 Screening for malignant neoplasm of colon (procedure) [code = 602653408] [facility] Scheduled Test 1972 00:00:00 Screening for malignant neoplasm of colon (procedure) [code = 736249225] [facility] Scheduled Test 1972 00:00:00 Screening for malignant neoplasm of colon (procedure) [code = 999214269] [facility] Scheduled Test 1972 00:00:00 Sigmoidoscopy [code = Sigmoidoscopy] [facility] Scheduled Test 1972 00:00:00 Screening for malignant neoplasm of breast (procedure) [code = 966521257] [facility] Scheduled Test 1972 00:00:00 CT Colonography (combo) [code = CT Colonography (combo)] [facility] Scheduled Test 1972 00:00:00 Screening for malignant neoplasm of colon (procedure) [code = 463296032] [facility] Scheduled Test 1972 00:00:00 Screening for malignant neoplasm of colon (procedure) [code = 013634290] [facility] Scheduled Test 1972 00:00:00 Screening for malignant neoplasm of colon (procedure) [code = 467547078] [facility] Scheduled Test 1972 00:00:00 Screening for malignant neoplasm of colon (procedure) [code = 675431919] [facility] Scheduled Test 1972 00:00:00 Sigmoidoscopy [code = Sigmoidoscopy] [facility] Scheduled Test 1972 00:00:00 Screening for malignant neoplasm of breast (procedure) [code = 430296355] [facility] Scheduled Test 1972 00:00:00 CT Colonography (combo) [code = CT Colonography (combo)] [facility] Scheduled Test 1972 00:00:00 Screening for malignant neoplasm of colon (procedure) [code = 808299078] [facility] Scheduled Test 1972 00:00:00 Screening for malignant neoplasm of colon (procedure) [code = 241768980] [facility] Scheduled Test 1972 00:00:00 Screening for malignant neoplasm of colon (procedure) [code = 472392625] [facility] Scheduled Test 1972 00:00:00 Screening for malignant neoplasm of colon (procedure) [code = 415064071] [facility] Scheduled Test 1972 00:00:00 Sigmoidoscopy [code = Sigmoidoscopy] [facility] Scheduled Test 1972 00:00:00 Screening for malignant neoplasm of breast (procedure) [code = 780791849] [facility] Scheduled Test 1972 00:00:00 CT Colonography (combo) [code = CT Colonography (combo)] [facility] Scheduled Test 1972 00:00:00 Screening for malignant neoplasm of colon (procedure) [code = 283664887] [facility] Scheduled Test 1972 00:00:00 Screening for malignant neoplasm of breast (procedure) [code = 225459472] [facility] Scheduled Test 1972 00:00:00 CT Colonography (combo) [code = CT Colonography (combo)] [facility] Scheduled Test 1972 00:00:00 Screening for malignant neoplasm of colon (procedure) [code = 099198423] [facility] Scheduled Test 1972 00:00:00 Screening for malignant neoplasm of colon (procedure) [code = 739894960] [facility] Scheduled Test 1972 00:00:00 Screening for malignant neoplasm of colon (procedure) [code = 376056722] [facility] Scheduled Test 1972 00:00:00 Screening for malignant neoplasm of colon (procedure) [code = 546445375] [facility] Scheduled Test 1972 00:00:00 Sigmoidoscopy [code = Sigmoidoscopy] [facility] Scheduled Test 1972 00:00:00 Screening for malignant neoplasm of colon (procedure) [code = 689433861] [facility] Scheduled Test 1972 00:00:00 Screening for malignant neoplasm of colon (procedure) [code = 787790449] [facility] Scheduled Test 1972 00:00:00 Screening for malignant neoplasm of colon (procedure) [code = 974852580] [facility] Scheduled Test 1972 00:00:00 Sigmoidoscopy [code = Sigmoidoscopy] [facility] Scheduled Test 1972 00:00:00 Screening for malignant neoplasm of breast (procedure) [code = 140928726] [facility] Scheduled Test 1972 00:00:00 CT Colonography (combo) [code = CT Colonography (combo)] [facility] Scheduled Test 1972 00:00:00 Screening for malignant neoplasm of colon (procedure) [code = 000998389] [facility] Scheduled Test 1972 00:00:00 Screening for malignant neoplasm of colon (procedure) [code = 086024778] [facility] Scheduled Test 1972 00:00:00 Screening for malignant neoplasm of colon (procedure) [code = 781759690] [facility] Scheduled Test 1972 00:00:00 Screening for malignant neoplasm of colon (procedure) [code = 522690302] [facility] Scheduled Test 1972 00:00:00 Sigmoidoscopy [code = Sigmoidoscopy] [facility] Scheduled Test 1972 00:00:00 Screening for malignant neoplasm of breast (procedure) [code = 414262426] [facility] Scheduled Test 1972 00:00:00 CT Colonography (combo) [code = CT Colonography (combo)] [facility] Scheduled Test 1972 00:00:00 Screening for malignant neoplasm of colon (procedure) [code = 796919019] [facility] Scheduled Test 1972 00:00:00 Screening for malignant neoplasm of colon (procedure) [code = 060126797] [facility] Scheduled Test 1972 00:00:00 Screening for malignant neoplasm of colon (procedure) [code = 288517775] [facility] Scheduled Test 1972 00:00:00 Screening for malignant neoplasm of colon (procedure) [code = 982788552] [facility] Scheduled Test 1972 00:00:00 Sigmoidoscopy [code = Sigmoidoscopy] [facility] Scheduled Test 1972 00:00:00 Screening for malignant neoplasm of breast (procedure) [code = 935706824] [facility] Scheduled Test 1972 00:00:00 CT Colonography (combo) [code = CT Colonography (combo)] [facility] Scheduled Test 1972 00:00:00 Screening for malignant neoplasm of colon (procedure) [code = 546281375] [facility] Scheduled Test 1972 00:00:00 Screening for malignant neoplasm of colon (procedure) [code = 882085683] [facility] Scheduled Test 1972 00:00:00 Screening for malignant neoplasm of colon (procedure) [code = 201708671] [facility] Scheduled Test 1972 00:00:00 Screening for malignant neoplasm of colon (procedure) [code = 371157847] [facility] Scheduled Test 1972 00:00:00 Sigmoidoscopy [code = Sigmoidoscopy] [facility] Scheduled Test 1972 00:00:00 Screening for malignant neoplasm of breast (procedure) [code = 013450340] [facility] Scheduled Test 1972 00:00:00 CT Colonography (combo) [code = CT Colonography (combo)] [facility] Scheduled Test 1972 00:00:00 Screening for malignant neoplasm of colon (procedure) [code = 183723042] [facility] Scheduled Test 1972 00:00:00 Screening for malignant neoplasm of colon (procedure) [code = 539882893] [facility] Scheduled Test 1972 00:00:00 Screening for malignant neoplasm of colon (procedure) [code = 159916444] [facility] Scheduled Test 1972 00:00:00 Screening for malignant neoplasm of colon (procedure) [code = 134005499] [facility] Scheduled Test 1972 00:00:00 Sigmoidoscopy [code = Sigmoidoscopy] [facility] Scheduled Test 1972 00:00:00 Screening for malignant neoplasm of breast (procedure) [code = 731170943] [facility] Scheduled Test 1972 00:00:00 CT Colonography (combo) [code = CT Colonography (combo)] [facility] Scheduled Test 1972 00:00:00 Screening for malignant neoplasm of colon (procedure) [code = 933077359] [facility] Scheduled Test 1972 00:00:00 Screening for malignant neoplasm of colon (procedure) [code = 127268704] [facility] Scheduled Test 1972 00:00:00 Screening for malignant neoplasm of colon (procedure) [code = 188863762] [facility] Scheduled Test 1972 00:00:00 Screening for malignant neoplasm of colon (procedure) [code = 394082118] [facility] Scheduled Test 1972 00:00:00 Screening for malignant neoplasm of breast (procedure) [code = 039244615] [facility] Scheduled Test 1972 00:00:00 Sigmoidoscopy [code = Sigmoidoscopy] [facility] Scheduled Test 1972 00:00:00 CT Colonography (combo) [code = CT Colonography (combo)] [facility] Scheduled Test 1972 00:00:00 Screening for malignant neoplasm of colon (procedure) [code = 258606444] [facility] Scheduled Test 1972 00:00:00 Screening for malignant neoplasm of breast (procedure) [code = 302497584] [facility] Scheduled Test 1972 00:00:00 CT Colonography (combo) [code = CT Colonography (combo)] [facility] Scheduled Test 1972 00:00:00 Screening for malignant neoplasm of colon (procedure) [code = 365205032] [facility] Scheduled Test 1972 00:00:00 Screening for malignant neoplasm of colon (procedure) [code = 248244372] [facility] Scheduled Test 1972 00:00:00 Screening for malignant neoplasm of colon (procedure) [code = 652311417] [facility] Scheduled Test 1972 00:00:00 Screening for malignant neoplasm of colon (procedure) [code = 490016696] [facility] Scheduled Test 1972 00:00:00 Screening for malignant neoplasm of colon (procedure) [code = 257716533] [facility] Scheduled Test 1972 00:00:00 Sigmoidoscopy [code = Sigmoidoscopy] [facility] Scheduled Test 1972 00:00:00 Screening for malignant neoplasm of colon (procedure) [code = 215939134] [facility] Scheduled Test 1972 00:00:00 Screening for malignant neoplasm of colon (procedure) [code = 361278202] [facility] Scheduled Test 1972 00:00:00 Screening for malignant neoplasm of breast (procedure) [code = 783850138] [facility] Scheduled Test 1972 00:00:00 CT Colonography (combo) [code = CT Colonography (combo)] [facility] Scheduled Test 1972 00:00:00 Screening for malignant neoplasm of colon (procedure) [code = 049296821] [facility] Scheduled Test 1972 00:00:00 Screening for malignant neoplasm of colon (procedure) [code = 279486047] [facility] Scheduled Test 1972 00:00:00 Sigmoidoscopy [code = Sigmoidoscopy] [facility] Scheduled Test 1972 00:00:00 Screening for malignant neoplasm of colon (procedure) [code = 946883557] [facility] Scheduled Test 1972 00:00:00 Screening for malignant neoplasm of colon (procedure) [code = 410548291] [facility] Scheduled Test 1972 00:00:00 Sigmoidoscopy [code = Sigmoidoscopy] [facility] Scheduled Test 1972 00:00:00 Screening for malignant neoplasm of breast (procedure) [code = 512313482] [facility] Scheduled Test 1972 00:00:00 CT Colonography (combo) [code = CT Colonography (combo)] [facility] Scheduled Test 1972 00:00:00 Screening for malignant neoplasm of colon (procedure) [code = 080062267] [facility] Scheduled Test 1972 00:00:00 Screening for malignant neoplasm of colon (procedure) [code = 836170628] [facility] Future Scheduled Test 1972 00:00:00 Screening for malignant neoplasm of colon (procedure) [code = 420133545] [facility] Future Scheduled Test 1972 00:00:00 Screening for malignant neoplasm of colon (procedure) [code = 620392187] [facility] Future Scheduled Test 1972 00:00:00 Sigmoidoscopy [code = Sigmoidoscopy] [facility] Future Scheduled Test 1972 00:00:00 Screening for malignant neoplasm of breast (procedure) [code = 937433810] [facility] Future Scheduled Test 1972 00:00:00 CT Colonography (combo) [code = CT Colonography (combo)] [facility] Future Scheduled Test 1972 00:00:00 Screening for malignant neoplasm of colon (procedure) [code = 859693453] [facility] Future Scheduled Test 1972 00:00:00 Screening for malignant neoplasm of colon (procedure) [code = 090580127] [facility] Future Scheduled Test 1972 00:00:00 Screening for malignant neoplasm of colon (procedure) [code = 432614177] [facility] Future Scheduled Test 1972 00:00:00 Screening for malignant neoplasm of colon (procedure) [code = 649540153] [facility] Future Scheduled Test 1972 00:00:00 Sigmoidoscopy [code = Sigmoidoscopy] [facility] Future Scheduled Test 1972 00:00:00 Screening for malignant neoplasm of breast (procedure) [code = 771915970] [facility] Future Scheduled Test 1972 00:00:00 CT Colonography (combo) [code = CT Colonography (combo)] [facility] Future Scheduled Test 1972 00:00:00 Screening for malignant neoplasm of colon (procedure) [code = 860078563] [facility] Future Scheduled Test 1972 00:00:00 Screening for malignant neoplasm of colon (procedure) [code = 952853597] [facility] Future Scheduled Test 1972 00:00:00 Screening for malignant neoplasm of colon (procedure) [code = 634455219] [facility] Future Scheduled Test 1972 00:00:00 Screening for malignant neoplasm of colon (procedure) [code = 372137991] [facility] Future Scheduled Test 1972 00:00:00 Sigmoidoscopy [code = Sigmoidoscopy] [facility] Future Scheduled Test 1972 00:00:00 Screening for malignant neoplasm of breast (procedure) [code = 688667140] [facility] Future Scheduled Test 1972 00:00:00 CT Colonography (combo) [code = CT Colonography (combo)] [facility] Future Scheduled Test 1972 00:00:00 Screening for malignant neoplasm of colon (procedure) [code = 979828331] [facility] Future Scheduled Test 1972 00:00:00 Screening for malignant neoplasm of colon (procedure) [code = 061102893] [facility] Future Scheduled Test 1972 00:00:00 Screening for malignant neoplasm of colon (procedure) [code = 415284282] [facility] Future Scheduled Test 1972 00:00:00 Screening for malignant neoplasm of colon (procedure) [code = 588872544] [facility] Future Scheduled Test 1972 00:00:00 Sigmoidoscopy [code = Sigmoidoscopy] [facility] Future Scheduled Test 1972 00:00:00 Screening for malignant neoplasm of breast (procedure) [code = 998046576] [facility] Future Scheduled Test 1972 00:00:00 CT Colonography (combo) [code = CT Colonography (combo)] [facility] Future Scheduled Test 1972 00:00:00 Screening for malignant neoplasm of colon (procedure) [code = 253424028] [facility] Future Scheduled Test 1972 00:00:00 Screening for malignant neoplasm of colon (procedure) [code = 998661140] [facility] Future Scheduled Test 1972 00:00:00 Screening for malignant neoplasm of colon (procedure) [code = 996684788] [facility] Future Scheduled Test 1972 00:00:00 Screening for malignant neoplasm of colon (procedure) [code = 932706950] [facility] Future Scheduled Test 1972 00:00:00 Sigmoidoscopy [code = Sigmoidoscopy] [facility] Future Scheduled Test 1972 00:00:00 Screening for malignant neoplasm of breast (procedure) [code = 502485958] [facility] Future Scheduled Test 1972 00:00:00 CT Colonography (combo) [code = CT Colonography (combo)] [facility] Future Scheduled Test 1972 00:00:00 Screening for malignant neoplasm of colon (procedure) [code = 149883676] [facility] Future Scheduled Test 1972 00:00:00 Screening for malignant neoplasm of colon (procedure) [code = 579887540] [facility] Future Scheduled Test 1972 00:00:00 Screening for malignant neoplasm of colon (procedure) [code = 593343737] [facility] Future Scheduled Test 1972 00:00:00 Screening for malignant neoplasm of colon (procedure) [code = 857333113] [facility] Future Scheduled Test 1972 00:00:00 Sigmoidoscopy [code = Sigmoidoscopy] [facility] Future Scheduled Test 1972 00:00:00 Screening for malignant neoplasm of breast (procedure) [code = 569470449] [facility] Future Scheduled Test 1972 00:00:00 CT Colonography (combo) [code = CT Colonography (combo)] [facility] Future Scheduled Test 1972 00:00:00 Screening for malignant neoplasm of colon (procedure) [code = 931475055] [facility] Future Scheduled Test 1972 00:00:00 Screening for malignant neoplasm of colon (procedure) [code = 758139324] [facility] Future Scheduled Test 1972 00:00:00 Screening for malignant neoplasm of colon (procedure) [code = 656031843] [facility] Future Scheduled Test 1972 00:00:00 Screening for malignant neoplasm of colon (procedure) [code = 817475894] [facility] Future Scheduled Test 1972 00:00:00 Sigmoidoscopy [code = Sigmoidoscopy] [facility] Future Scheduled Test 1972 00:00:00 Screening for malignant neoplasm of breast (procedure) [code = 887193214] [facility] Future Scheduled Test 1972 00:00:00 CT Colonography (combo) [code = CT Colonography (combo)] [facility] Future Scheduled Test 1972 00:00:00 Screening for malignant neoplasm of colon (procedure) [code = 040487233] [facility] Future Scheduled Test 1972 00:00:00 Screening for malignant neoplasm of colon (procedure) [code = 178943500] [facility] Future Scheduled Test 1972 00:00:00 Screening for malignant neoplasm of colon (procedure) [code = 492014490] [facility] Future Scheduled Test 1972 00:00:00 Screening for malignant neoplasm of colon (procedure) [code = 908698385] [facility] Future Scheduled Test 1972 00:00:00 Sigmoidoscopy [code = Sigmoidoscopy] [facility] Future Scheduled Test 1972 00:00:00 Screening for malignant neoplasm of breast (procedure) [code = 817115940] [facility] Future Scheduled Test 1972 00:00:00 CT Colonography (combo) [code = CT Colonography (combo)] [facility] Future Scheduled Test 1972 00:00:00 Screening for malignant neoplasm of colon (procedure) [code = 734117424] [facility] Future Scheduled Test 1972 00:00:00 Screening for malignant neoplasm of colon (procedure) [code = 628087449] [facility] Future Scheduled Test 1972 00:00:00 Screening for malignant neoplasm of colon (procedure) [code = 842982507] [facility] Future Scheduled Test 1972 00:00:00 Screening for malignant neoplasm of colon (procedure) [code = 859936498] [facility] Future Scheduled Test 1972 00:00:00 Sigmoidoscopy [code = Sigmoidoscopy] [facility] Future Scheduled Test 1972 00:00:00 Screening for malignant neoplasm of breast (procedure) [code = 149568233] [facility] Future Scheduled Test 1972 00:00:00 CT Colonography (combo) [code = CT Colonography (combo)] [facility] Future Scheduled Test 1972 00:00:00 Screening for malignant neoplasm of colon (procedure) [code = 898790056] [facility] Future Scheduled Test 1972 00:00:00 Screening for malignant neoplasm of colon (procedure) [code = 701607567] [facility] Future Scheduled Test 1972 00:00:00 Screening for malignant neoplasm of colon (procedure) [code = 924212026] [facility] Future Scheduled Test 1972 00:00:00 Screening for malignant neoplasm of colon (procedure) [code = 810463574] [facility] Future Scheduled Test 1972 00:00:00 Sigmoidoscopy [code = Sigmoidoscopy] [facility] Future Scheduled Test 1972 00:00:00 Screening for malignant neoplasm of breast (procedure) [code = 787714486] [facility] Future Scheduled Test 1972 00:00:00 CT Colonography (combo) [code = CT Colonography (combo)] [facility] Future Scheduled Test 1972 00:00:00 Screening for malignant neoplasm of colon (procedure) [code = 860025313] [facility] Future Scheduled Test 1972 00:00:00 Screening for malignant neoplasm of colon (procedure) [code = 429887210] [facility] Future Scheduled Test 1972 00:00:00 Screening for malignant neoplasm of colon (procedure) [code = 828639964] [facility] Future Scheduled Test 1972 00:00:00 Screening for malignant neoplasm of colon (procedure) [code = 693452891] [facility] Future Scheduled Test 1972 00:00:00 Sigmoidoscopy [code = Sigmoidoscopy] [facility] Future Scheduled Test 1972 00:00:00 Screening for malignant neoplasm of breast (procedure) [code = 563960366] [facility] Future Scheduled Test 1972 00:00:00 CT Colonography (combo) [code = CT Colonography (combo)] [facility] Future Scheduled Test 1972 00:00:00 Screening for malignant neoplasm of colon (procedure) [code = 877645463] [facility] Future Scheduled Test 1972 00:00:00 Screening for malignant neoplasm of colon (procedure) [code = 035455916] [facility] Future Scheduled Test 1972 00:00:00 Screening for malignant neoplasm of colon (procedure) [code = 577970695] [facility] Future Scheduled Test 1972 00:00:00 Screening for malignant neoplasm of colon (procedure) [code = 316148463] [facility] Future Scheduled Test 1972 00:00:00 Sigmoidoscopy [code = Sigmoidoscopy] [facility] Future Scheduled Test 1972 00:00:00 Screening for malignant neoplasm of breast (procedure) [code = 778186715] [facility] Future Scheduled Test 1972 00:00:00 CT Colonography (combo) [code = CT Colonography (combo)] [facility] Future Scheduled Test 1972 00:00:00 Screening for malignant neoplasm of colon (procedure) [code = 576728989] [facility] Future Scheduled Test 1972 00:00:00 Screening for malignant neoplasm of colon (procedure) [code = 879649924] [facility] Future Scheduled Test 1972 00:00:00 Screening for malignant neoplasm of colon (procedure) [code = 341924313] [facility] Future Scheduled Test 1972 00:00:00 Screening for malignant neoplasm of colon (procedure) [code = 169724084] [facility] Future Scheduled Test 1972 00:00:00 Sigmoidoscopy [code = Sigmoidoscopy] [facility] Future Scheduled Test 1972 00:00:00 Screening for malignant neoplasm of breast (procedure) [code = 789272881] [facility] Future Scheduled Test 1972 00:00:00 CT Colonography (combo) [code = CT Colonography (combo)] [facility] Future Scheduled Test 1972 00:00:00 Screening for malignant neoplasm of colon (procedure) [code = 475781075] [facility] Future Scheduled Test 1972 00:00:00 Screening for malignant neoplasm of colon (procedure) [code = 113856623] [facility] Future Scheduled Test 1972 00:00:00 Screening for malignant neoplasm of colon (procedure) [code = 321648532] [facility] Future Scheduled Test 1972 00:00:00 Screening for malignant neoplasm of colon (procedure) [code = 412581699] [facility] Future Scheduled Test 1972 00:00:00 Sigmoidoscopy [code = Sigmoidoscopy] [facility] Future Scheduled Test 1972 00:00:00 Screening for malignant neoplasm of breast (procedure) [code = 616844790] [facility] Future Scheduled Test 1972 00:00:00 CT Colonography (combo) [code = CT Colonography (combo)] [facility] Future Scheduled Test 1972 00:00:00 Screening for malignant neoplasm of colon (procedure) [code = 983992691] [facility] Future Scheduled Test 1972 00:00:00 Screening for malignant neoplasm of colon (procedure) [code = 804703605] [facility] Future Scheduled Test 1972 00:00:00 Screening for malignant neoplasm of colon (procedure) [code = 479545168] [facility] Future Scheduled Test 1972 00:00:00 Screening for malignant neoplasm of colon (procedure) [code = 936503140] [facility] Future Scheduled Test 1972 00:00:00 Sigmoidoscopy [code = Sigmoidoscopy] [facility] Future Scheduled Test 1972 00:00:00 Screening for malignant neoplasm of breast (procedure) [code = 523509019] [facility] Future Scheduled Test 1972 00:00:00 CT Colonography (combo) [code = CT Colonography (combo)] [facility] Future Scheduled Test 1972 00:00:00 Screening for malignant neoplasm of colon (procedure) [code = 599855814] [facility] Future Scheduled Test 1972 00:00:00 Screening for malignant neoplasm of colon (procedure) [code = 328484486] [facility] Future Scheduled Test 1972 00:00:00 Screening for malignant neoplasm of colon (procedure) [code = 692021888] [facility] Future Scheduled Test 1972 00:00:00 Screening for malignant neoplasm of colon (procedure) [code = 257226397] [facility] Future Scheduled Test 1972 00:00:00 Sigmoidoscopy [code = Sigmoidoscopy] [facility] Goal Plan of Care Not e [code = 97887-6] Goal Plan of Care Not e [code = 86726-1] Goal Plan of Care Not e [code = 02960-3] Goal Plan of Care Not e [code = 73038-6] Goal Plan of Care Not e [code = 09853-9] Goal Plan of Care Not e [code = 67561-6] Goal Plan of Care Not e [code = 67506-2] Goal Plan of Care Not e [code = 61042-4] Goal Plan of Care Not e [code = 48197-9] Goal Plan of Care Not e [code = 72432-3] Goal Plan of Care Not e [code = 90752-1] Goal Plan of Care Not e [code = 38738-2] Goal Plan of Care Not e [code = 24225-0] Goal Plan of Care Not e [code = 16760-5] Goal Plan of Care Not e [code = 41477-8] Goal Plan of Care Not e [code = 05295-1] Goal Plan of Care Not e [code = 85905-5] Goal Plan of Care Not e [code = 90109-8] Goal Plan of Care Not e [code = 43738-0] Goal Plan of Care Not e [code = 77296-8] Goal Plan of Care Not e [code = 00684-7] Goal Plan of Care Not e [code = 03066-6] Goal Plan of Care Not e [code = 60157-4] Goal Plan of Care Not e [code = 22138-1] Goal Plan of Care Not e [code = 78790-4] Goal Plan of Care Not e [code = 01046-4] Goal Plan of Care Not e [code = 73566-3] Goal Plan of Care Not e [code = 45533-4] Goal Plan of Care Not e [code = 93443-5] Goal Plan of Care Not e [code = 44670-5] Goal Plan of Care Not e [code = 08616-6] Goal Plan of Care Not e [code = 85881-1] Goal Plan of Care Not e [code = 14110-2] Goal Plan of Care Not e [code = 30016-5] Goal Plan of Care Not e [code = 97098-9] Encounters Start Date/Time End Date/Time Encounter Type Admission Type Attending Clinicians [facility] Care Department Encounter ID Source 2023-09-07 10:11:03 [id number] 2023-09-05 10:08:27 [facility] [id number] [facility] 2023-09-05 10:05:12 [facility] [id number] [facility] 2023-09-04 04:51:30 [facility] [id number] [facility] 2023-09-04 04:14:55 [facility] [id number] [facility] 2023-09-04 03:08:45 [facility] [id number] [facility] 2023-09-04 02:36:28 Inpatient PANKAJ PARRISH [facility] [id number] [facility] 2023-06-16 09:32:36 [id number] 2023-06-16 09:32:09 [facility] [id number] [facility] 2023-06-16 09:31:53 [facility] [id number] [facility] 2023-06-14 07:46:02 [facility] [id number] [facility] 2023-06-14 07:39:22 Inpatient AYDEE DICKENS [facility] [id number] [facility] 2023-06-14 06:38:38 Inpatient AYDEE DICKENS [facility] [id number] [facility] 2023-06-13 13:44:18 Inpatient EL MARIANELA BURGESS [facility] [id number] [facility] 2023-06-13 11:45:24 Inpatient AYDEE DICKENS [facility] [id number] [facility] 2023-05-08 11:21:00 Outpatient EL ADAM GARCIA [facility] Surgery [id number] [facility] 2023-04-01 14:26:29 Inpatient ER THOMAS LOZOYA [facility] [id number] [facility] 2023-03-31 09:24:52 Inpatient ER MARIAH ALDRIDGE [facility] [id number] [facility] 2021-05-20 18:48:04 Emergency [facility] [id number] [facility] 2021-05-20 12:43:40 Emergency [facility] [id number] [facility] 2024-03-08 00:00:00 2024-03-08 00:00:00 Outpatient MD CYNTHIA MARLEY [id number] [facility] 2024-01-14 00:00:00 2024-02-20 18:26:15 Patient Secure Msg Doctor Unassigned, [place] [facility] 1.2.840.114 350.1.13.10 4.2.7.2.686 [id number] [facility] 2024-02-19 00:00:00 2024-02-19 00:00:00 Outpatient GUSTAVO DELANEY [id number] [facility] 2024-02-16 10:15:00 2024-02-16 10:15:00 Outpatient MORALES BALL [id number] [facility] 2024-01-13 00:00:00 2024-02-13 18:19:27 Patient Secure Msg Doctor Unassigned, [place] [facility] 1.2.840.114 350.1.13.10 4.2.7.2.686 [id number] [facility] 2024-01-12 22:04:00 2024-01-13 00:00:00 Emergency X RADHA WYATT, RADHA [facility] ERT [id number] [facility] 2024-01-12 22:04:00 2024-01-13 00:00:00 Emergency Radha Wyatt J [facility] 1.2.840.114 350.1.13.10 4.2.7.2.686 [id number] [facility] 2024-01-12 00:00:00 2024-01-12 16:22:23 Transition of Care Gerardo Veroniquesa Ne [facility] 1.2840.114 350.1.13.10 4.2.7.2.686 [id number] [facility] 2024-01-09 16:11:00 2024-01-10 15:56:00 Outpatient X DARRICK ALTAMIRANO [facility] SHEA [id number] [facility] 2024-01-09 16:11:00 2024-01-10 15:56:00 Hospital Encounter Olena Del Castillo K Paige Khan, Mohammad A. [facility] 1.2840.114 350.1.13.10 4.2.7.2.686 [id number] [facility] 2023-12-17 00:00:00 2023-12-17 00:00:00 Transition of Care Jodi Berg PLACHRISTIAN 1.2840.114 350.1.13.10 4.2.7.2.686 [id number] [facility] 2023-12-14 13:34:00 2023-12-15 11:08:00 Outpatient X TAL BENAVIDEZ [facility] SHEA [id number] [facility] 2023-12-14 13:34:00 2023-12-15 11:08:00 Emergency Mj Bryan Jelani [facility] 1.2.840.114 350.1.13.10 4.2.7.2.686 [id number] [facility] 2023-12-07 00:00:00 2023-12-07 00:00:00 Outpatient GUSTAVO DELANEY [id number] Cynthia Garcia 2023-12-02 13:05:00 2023-12-03 19:00:00 Outpatient X MOJGAN [facility] [id number] [facility] 2023-12-02 13:05:00 2023-12-03 19:00:00 Hospital Encounter Connor Renee Wissam [facility] 1.2.840.114 350.1.13.10 4.2.7.2.686 [id number] [facility] 2023-12-01 00:00:00 2023-12-01 10:40:26 Transition of Care Madeline Mckinley 1.2.840.114 350.1.13.10 4.2.7.2.686 [id number] [facility] 2023-11-30 00:00:00 2023-11-30 10:41:56 Transition of Care Madeline Mckinley 1.2.840.114 350.1.13.10 4.2.7.2.686 [id number] [facility] 2023-11-21 21:12:00 2023-11-28 16:01:00 Inpatient X MADELINE PIERRE [facility] [id number] [facility] 2023-11-21 21:12:00 2023-11-28 16:01:00 Hospital Encounter Madeline Pierre Donnell Altamirano, Cr Mcdermott, Ryder Davis [facility] 1.2.840.114 350.1.13.10 4.2.7.2.686 [id number] [facility] 2023-11-26 14:15:00 2023-11-26 14:15:00 Outpatient AARON LEDESMA [id number] [facility] 2023-11-23 13:45:00 2023-11-23 14:45:00 Surgery Cris Molina [facility] 1.2.840.114 350.1.13.10 4.2.7.2.686 [id number] [facility] 2023-11-18 00:00:00 2023-11-18 00:00:00 Outpatient EFRA BABCOCK [id number] [facility] 2023-11-15 00:00:00 2023-11-15 00:00:00 Outpatient CYNTHIA MTZ [id number] [facility] 2023-11-15 00:00:00 2023-11-15 00:00:00 Outpatient CYNTHIA MTZ [id number] [facility] 2023-11-15 00:00:00 2023-11-15 00:00:00 Outpatient CYNTHIA MTZ [id number] [facility] 2023-11-12 15:15:00 2023-11-12 15:15:00 Outpatient GUSTAVO DELANEY [id number] [facility] 2023-11-12 00:00:00 2023-11-12 00:00:00 Outpatient CYNTHIA MTZ [id number] [facility] 2023-11-10 09:30:00 2023-11-10 09:30:00 Outpatient MYLA LIEBERMAN [id number] [facility] 2023-11-09 00:00:00 2023-11-09 00:00:00 Outpatient GUSTAVO DELANEY [id number] [facility] 2023-11-09 00:00:00 2023-11-09 00:00:00 Outpatient MYLA LIEBERMAN CYNTHIA MTZ [id number] [facility] 2023-11-07 17:51:00 2023-11-07 22:04:00 emergency [facility] [id number] 2023-11-07 17:51:00 2023-11-07 22:04:00 Emergency ER [facility] [id number] [facility] 2023-11-05 00:00:00 2023-11-05 00:00:00 Outpatient TIFFANY PUENTE [id number] [facility] 2023-11-03 00:00:00 2023-11-03 00:00:00 Outpatient CYNTHIA MTZ [id number] [facility] 2023-10-29 00:00:00 2023-10-29 00:00:00 Outpatient GUSTAVO DELANEY [id number] [facility] 2023-10-26 00:00:00 2023-10-26 00:00:00 Outpatient EFRA BABCOCK [id number] [facility] 2023-10-22 00:00:00 2023-10-22 00:00:00 Outpatient GUSTAVO DELANEY [id number] [facility] 2023-10-16 11:10:00 2023-10-16 11:10:00 Outpatient SIDDHARTH STANFORD [id number] Cynthia [facility] 2023-10-15 00:00:00 2023-10-15 00:00:00 Outpatient MD CYNTHIA MARLEY [id number] [facility] 2023-10-15 00:00:00 2023-10-15 00:00:00 Outpatient MARGOT GUILLEN [id number] [facility] 2023-10-15 00:00:00 2023-10-15 00:00:00 Outpatient MARGOT GUILLEN CYNTHIA [id number] Cynthia [facility] 2023-10-06 10:45:00 2023-10-06 10:45:00 Outpatient BAYSARAI NOBLE CYNTHIA [id number] Cynthia [facility] 2023-10-05 11:30:00 2023-10-05 11:30:00 Outpatient PREZAS, GUSTAVO MTZ CYNTHIA [id number] Cynthia [facility] 2023-10-01 00:00:00 2023-10-01 00:00:00 Outpatient PREZAS, GUSTAVO MTZ CYNTHIA [id number] [facility] 2023-09-30 14:15:00 2023-09-30 14:15:00 Outpatient PREZAS, GUSTAVO MTZ CYNTHIA [id number] Cynthia Seybold 2023-09-24 00:00:00 2023-09-24 00:00:00 Outpatient PREZAS, GUSTAVO MTZ CYNTHIA [id number] Cynthia Seybold 2023-09-23 00:00:00 2023-09-23 00:00:00 Outpatient TIFFANY PUENTE [id number] Cynthia Seybold 2023-09-22 00:00:00 2023-09-22 00:00:00 Outpatient PREZAS, GUSTAVO MTZ CYNTHIA [id number] Cynthia Seybold 2023-09-22 00:00:00 2023-09-22 00:00:00 Outpatient MARGOT GUILLEN CYNTHIA [id number] Cynthia Seybold 2023-09-16 00:00:00 2023-09-16 00:00:00 Outpatient PREZAS, GUSTAVO CYNTHIA CYNTHIA [id number] Cynthia Seybold 2023-09-16 00:00:00 2023-09-16 00:00:00 Outpatient PREZAS, GUSTAVO CYNTHIA CYNTHIA [id number] Cynthia Seybold 2023-09-16 00:00:00 2023-09-16 00:00:00 Outpatient PREZAS, GUSTAVO CYNTHIA MTZ [id number] Cynthia Seybold 2023-09-14 00:00:00 2023-09-14 00:00:00 Outpatient MARGOT GUILLEN CYNTHIA MTZ [id number] Cynthia [facility] 2023-09-14 00:00:00 2023-09-14 00:00:00 Outpatient MARGOT GUILLEN CYNTHIA MTZ [id number] Cynthia [facility] 2023-09-11 11:00:00 2023-09-11 11:00:00 Outpatient YONATAN LORENZO CYNTHIA MTZ [id number] Cynthia [facility] 2023-09-09 00:00:00 2023-09-09 00:00:00 Outpatient CYNTHIA MTZ [id number] Cynthia [facility] 2023-09-04 00:14:00 2023-09-08 10:51:00 Hospital Encounter ER [place] Rahul Khan, Maria Hoffman, Maria [facility] [id number] [facility] 2023-09-04 00:14:00 2023-09-08 10:51:00 Inpatient ER EDWARD FERRER Neurosurger y [id number] [facility] 2023-09-04 00:14:00 2023-09-08 10:51:00 Hospital Encounter [place] Rahul Khan, Maria Hoffman, Maria [facility] [id number] [facility] 2023-09-07 18:41:43 2023-09-07 18:41:43 Outpatient EDWARD MANE [facility] [id number] [facility] 2023-09-03 20:52:00 2023-09-03 23:44:00 emergency [facility] [id number] 2023-09-03 20:52:00 2023-09-03 23:44:00 Emergency ER [facility]ANY [facility] [id number] [facility] 2023-09-02 00:00:00 2023-09-02 00:00:00 Outpatient TIFFANY PUENTE [id number] Cynthia [facility] 2023-09-01 15:30:00 2023-09-01 15:30:00 Outpatient DEMETRIUS TOBAR [id number] Cynthia Garcia 2023-08-19 00:00:00 2023-08-19 00:00:00 Out[facility] [id number] [facility] 2023-08-13 00:00:00 2023-08-13 00:00:00 Orders Only Quin Scruggs Terry [facility] [id number] [facility] 2023-08-13 00:00:00 2023-08-13 00:00:00 Orders Only Quin Scruggs [facility] [id number] [facility] 2023-08-12 13:49:00 2023-08-12 16:12:00 Emergency X MJ BRYAN NCKEVIN ERT [id number] [facility] 2023-08-12 13:49:00 2023-08-12 16:12:00 Emergency Mj Bryan NCKEVIN [facility] 1.2.840.114 350.1.13.10 4.2.7.2.686 [id number] [facility] 2023-06-13 03:43:00 2023-06-16 19:45:00 Hospital Encounter ER Marianela Burgess Sahar [facility] [id number] [facility] 2023-06-13 03:43:00 2023-06-16 19:45:00 Inpatient ER AYDEE GO [facility] Internal Med [id number] [facility] 2023-06-13 03:43:00 2023-06-16 19:45:00 Hospital Encounter Marianela Burgess Sahar [facility] [id number] [facility] 2023-06-15 00:00:00 2023-06-15 00:00:00 Orders Only Provider, Not In System [facility] [id number] [facility] 2023-06-15 00:00:00 2023-06-15 00:00:00 Orders Only Provider, Not In System [facility] [id number] [facility] 2023-06-13 16:30:06 2023-06-13 16:30:06 Outpatient AYDEE DICKENS [facility] [id number] [facility] 2023-06-13 00:00:00 2023-06-13 00:00:[address] [facility] [id number] [facility] 2023-06-13 00:00:00 2023-06-13 00:00:00 Travel [facility] [id number] [facility] 2023-06-13 00:00:00 2023-06-13 00:00:[address] [facility] [id number] [facility] 2023-06-13 00:00:00 2023-06-13 00:00:00 Travel [facility] [id number] [facility] 2023-06-12 00:00:00 2023-06-12 00:00:[address] [facility] [id number] [facility] 2023-06-12 00:00:00 2023-06-12 00:00:[address] [facility] [id number] [facility] 2023-05-28 06:45:00 2023-06-04 17:36:00 Hospital Encounter NICOLETTE Garcia Adam [facility] [id number] [facility] 2023-05-28 06:45:00 2023-06-04 17:36:00 Inpatient ADAM BRANTLEY [facility] Surgery [id number] [facility] 2023-05-28 06:45:00 2023-06-04 17:36:00 Hospital Encounter Adam Garcia [facility] [id number] [facility] 2023-06-01 09:10:00 2023-06-01 13:00:00 Anesthesia Event Harry Newsome Mujtaba [facility] [id number] [facility] 2023-06-01 09:10:00 2023-06-01 13:00:00 Anesthesia Event Harry Newsome Mujtaba [facility] [id number] [facility] 2023-06-01 09:00:00 2023-06-01 11:30:[address] [facility] [id number] [facility] 2023-06-01 09:00:00 2023-06-01 11:30:[address] [facility] [id number] [facility] 2023-06-01 09:47:57 2023-06-01 09:47:57 Outpatient ADAM BRANTLEY [facility] [id number] [facility] 2023-06-01 09:40:34 2023-06-01 09:40:34 Outpatient ADAM BRANTLEY [facility] [id number] [facility] 2023-05-31 09:25:55 2023-05-31 23:59:00 Inpatient ADAM BRANTLEY [facility] [id number] [facility] 2023-05-31 09:00:00 2023-05-31 23:59:00 Hospital Encounter Adam Garcia [facility] [id number] [facility] 2023-05-31 09:00:00 2023-05-31 23:59:00 Hospital Encounter Adam Garcia [facility] [id number] [facility] 2023-05-28 18:15:29 2023-05-28 18:15:29 Outpatient DAAM BRANTLEY [facility] [id number] [facility] 2023-05-28 08:30:00 2023-05-28 11:54:00 An[address] Yue Bui [facility] [id number] [facility] 2023-05-28 08:30:00 2023-05-28 11:54:00 Anesthesia Event Yue Bui [facility] [id number] [facility] 2023-05-28 11:41:14 2023-05-28 11:41:14 Outpatient ADAM BRANTLEY [facility] [id number] [facility] 2023-05-28 08:30:00 2023-05-28 11:00:[address] [facility] [id number] [facility] 2023-05-28 08:30:00 2023-05-28 11:00:[address] [facility] [id number] [facility] 2023-05-28 10:00:47 2023-05-28 10:00:47 Outpatient ADAM BRANTLEY [facility] [id number] [facility] 2023-05-28 00:00:00 2023-05-28 00:00:00 Travel [facility] [id number] [facility] 2023-05-28 00:00:00 2023-05-28 00:00:00 Travel [facility] [id number] [facility] 2023-05-26 09:00:00 2023-05-26 09:00:00 Hospital Encounter Adam Garcia [facility] [id number] [facility] 2023-05-26 00:00:00 2023-05-26 00:00:00 Outpatient ADAM BRANTLEY [facility] [id number] [facility] 2023-05-26 00:00:00 2023-05-26 00:00:00 Outpatient NICOLETTE SLERigoberto [facility] [id number] [facility] 2023-05-26 00:00:00 2023-05-26 00:00:00 Travel [facility] [id number] [facility] 2023-05-26 00:00:00 2023-05-26 00:00:00 Travel [facility] [id number] [facility] 2023-05-13 11:43:03 2023-05-13 11:43:03 Outpatient BHARAT NICHOLSON [id number] Adria Martínez 2023-05-12 00:00:00 2023-05-12 00:00:00 Orders Only Adam Garcia [facility] [id number] [facility] 2023-05-12 00:00:00 2023-05-12 00:00:00 Orders Only Adam Garcia [facility] [id number] [facility] 2023-05-08 14:11:21 2023-05-08 14:11:21 Outpatient [facility] 1020 Adria Martínez 2023-03-29 19:25:00 2023-04-02 20:48:00 Hospital Encounter ER Connie Davey Shireen Kulkarni, Mrinalini Z [facility] [id number] [facility] 2023-03-29 19:25:00 2023-04-02 20:48:00 Inpatient ER THOMAS LOZOYA [facility] [id number] [facility] 2023-03-31 08:32:56 2023-03-31 00:00:00 Inpatient ER MARIAH ALDRIDGE [facility] [id number] [facility] 2023-03-30 10:24:12 2023-03-30 23:59:00 Outpatient ER CONNIE DAVEY [facility]igoberto [facility] [id number] [facility] 2023-03-30 09:40:00 2023-03-30 23:59:00 Hospital Encounter Connie Davey [facility] [id number] [facility] 2023-03-30 13:46:20 2023-03-30 13:46:20 Outpatient ER MARIAH ALDRIDGE SLERigoberto [facility] [id number] [facility] 2023-03-30 13:46:14 2023-03-30 13:46:14 Outpatient ER MARIAH ALDRIDGE SLERigoberto [facility] [id number] [facility] 2023-03-30 10:24:04 2023-03-30 10:24:04 Outpatient ER CONNIE DAVEY [facility] [id number] [facility] 2023-03-30 00:00:00 2023-03-30 00:00:[address] [facility] [id number] [facility] 2023-03-30 00:00:00 2023-03-30 00:00:00 Travel [facility] [id number] [facility] 2022-12-11 08:56:00 2022-12-11 15:29:00 Emergency X Alfonso ALVARADO [facility] ERT [id number] [facility] 2022-12-11 08:56:00 2022-12-11 15:29:00 Emergency Alfonso Alvarado Lorelei [facility] 1.2.840.114 350.1.13.10 4.2.7.2.686 [id number] [facility] 2022-11-17 17:25:00 2022-11-18 01:19:00 Emergency X RITCHIE WARREN [facility] ERT [id number] [facility] 2022-11-17 17:25:00 2022-11-18 01:19:00 Emergency Ritchie Warren E [facility] 1.2.840.114 350.1.13.10 4.2.7.2.686 [id number] [facility] 2022-08-28 00:00:00 2022-08-28 00:00:00 Patient Outreach Margot Beckman 1.2.840.114 350.1.13.10 4.2.7.2.686 [id number] [facility] 2022-08-20 00:00:00 2022-08-20 00:00:00 Patient Outreach Margot Beckman 1.2.840.114 350.1.13.10 4.2.7.2.686 [id number] [facility] 2022-08-02 17:30:00 2022-08-03 14:29:00 Hospital Encounter Halima Guan Kinjal M Ibe, Chimkama Ngozi Cynthia [facility] [id number] [facility] 2022-08-02 17:30:00 2022-08-03 14:29:00 Outpatient ER PARRISH DIANE [facility] Neurology [id number] SLE 2022-08-03 00:00:00 2022-08-03 00:00:[address] [facility] [id number] [facility] 2022-08-02 00:00:00 2022-08-02 00:00:00 Travel [facility] [id number] [facility] 2022-07-31 11:42:00 2022-08-01 21:48:00 Inpatient X DAMI LOWRY [facility] SHEA [id number] [facility] 2022-07-31 11:42:00 2022-08-01 21:48:00 Hospital Encounter Michele RondonDami Porter [facility] 1.2.840.114 350.1.13.10 4.2.7.2.686 [id number] [facility] 2022-08-01 00:00:00 2022-08-01 00:00:00 Transition of Care Maria Teresa Nicole 1.2.840.114 350.1.13.10 4.2.7.2.686 [id number] [facility] 2022-07-28 14:41:38 2022-07-28 14:41:38 Outpatient [facility] 9 Adria Martínez 2022-07-28 00:00:00 2022-07-28 00:00:00 Outpatient Visit [id number] 2022-07-24 13:24:40 2022-07-24 13:24:40 Outpatient SFA BHARAT 5 Adria Martínez 2022-05-23 14:51:01 2022-05-23 14:51:01 Outpatient SFA [facility] [id number] Adria Martínez 2022-05-23 00:00:00 2022-05-23 00:00:00 Outpatient Visit [id number] -[id number] [id number] 2022-05-04 20:22:00 2022-05-08 14:44:00 Outpatient X ANNEMARIE [facility] [id number] 2022-05-04 20:22:00 2022-05-08 14:44:00 Emergency Briner, Brandyn Atkinson [facility] 1.840.114 350.1.13.10 4.2.7.2.686 [id number] [facility] 2022-04-13 13:06:00 2022-04-15 15:00:00 [id number] 2022-04-13 13:06:00 2022-04-15 15:00:00 Hospital Encounter Sapna Vargas Muhammad Zeeshan [facility] 1.840.114 350.1.13.10 4.2.7.2.686 [id number] [facility] 2022-02-19 10:20:00 2022-02-19 10:30:00 Imm/Inj Visit Santos, Bozrah Jose Santiago [facility] 1..114 350.1.13.10 4.2.7.2.686 [id number] [facility] 2022-02-19 10:20:00 2022-02-19 10:20:00 Outpatient R JOSE PAK [facility] [id number] [facility] 2021-11-23 15:07:00 2021-11-23 17:03:00 Emergency X JORJE VIRKDAVIDMich [facility] ERT [id number] [facility] 2021-11-23 15:07:00 2021-11-23 17:03:00 Emergency Megan Rondon Folusho F [facility] 1.840.114 350.1.13.10 4.2.7.2.686 [id number] [facility] 2021-11-21 09:40:00 2021-11-21 09:40:00 Outpatient R [facility] [id number] [facility] 2021-05-24 09:30:00 2021-05-24 09:30:00 Outpatient R PASHA [facility] [id number] [facility] 2021-05-24 08:47:51 2021-05-24 08:57:51 Imm/Inj Visit Vaccine, Bozrah Collettetristan Pak [facility] 1..114 350.1.13.10 4.2.7.2.686 [id number] [facility] 2021-05-03 09:40:00 2021-05-03 09:59:35 Outpatient R PASHAJOSE [facility] [id number] [facility] 2021-05-03 09:17:43 2021-05-03 09:59:35 Imm/Inj Visit Vaccine, Bozrah Dangelo Pasha [facility] 1..114 350.1.13.10 4.2.7.2.686 [id number] [facility] 2021-04-16 00:00:00 2021-04-16 00:00:00 Orders Only Doctor Unassigned, [place] [facility] 1.840.114 350.1.13.10 4.2.7.2.686 [id number] [facility] 2021-03-17 00:00:00 2021-03-17 00:00:00 Telephone Miky Nava [facility] 1.2.114 350.1.13.10 4.2.7.2.686 [id number] [facility] 2021-03-16 20:08:00 2021-03-16 23:24:00 Emergency Fabrice Chakraborty [facility] 1.2840.114 350.1.13.10 4.2.7.2.686 [id number] [facility] 2021-03-14 18:59:34 2021-03-14 20:19:13 Urgent Care Lydia Desouza Unknown, Attending [facility] 1..114 350.1.13.10 4.2.7.2.686 [id number] [facility] 2021-03-14 19:00:00 2021-03-14 19:00:00 Outpatient R UNKNOWN, ATTENDING [facility] [id number] [facility] 2021-02-19 10:49:00 2021-02-19 14:48:00 Emergency Estefania Monroy [facility] 1..114 350.1.13.10 4.2.7.2.686 [id number] [facility] 2019-03-09 00:00:00 2019-03-09 00:00:00 Yehuda Zimmerman [facility] 1.84.114 350.1.13.10 4.2.7.2.686 [id number] 2019-03-09 00:00:00 2019-03-09 00:00:00 Yehuda Zimmerman [facility] 1.84.114 350.1.13.10 4.2.7.2.686 [id number] [facility] Results Test Description Test Time Test Comments Results Result Co mments Source [facility] (40262)2024-01-13 04:13:41* Test Item Value Reference Range Interpretation Comme nts NA (test code = 1699019960) 140 mmol/L 135-145 K (test code = 0214779962) 3.7 mmol/L 3.5-5.0 CL (test code = 3171110433) 103 mmol/L 98-108 CO2 TOTAL (test code = 2615652362) 25 mmol/L 23-31 AGAP (test code = 2942678848) 12 2-16 BUN (test code = 8729824234) 12 mg/dL 7-23 GLUCOSE (test code = 8826804443) 143 mg/dL 70-110 H CREATININE (test code = 2160-0) 0.91 mg/dL 0.50-1.04 TOTAL BILI (test code = 2925203100) 0.4 mg/dL 0.1-1.1 CALCIUM (test code = 4001363591) 9.0 mg/dL 8.6-10.6 T PROTEIN (test code = 2409801064) 7.7 g/dL 6.3-8.2 ALBUMIN (test code = 8077581082) 4.2 g/dL 3.5-5.0 ALK PHOS (test code = 0569475643) 93 U/L 34-122 ALTv (test code = 1742-6) 9 U/L 5-35 AST(SGOT) (test code = 2253846422) 18 U/L 13-40 eGFR (test code = 61421-8) 76.5 mL/min/1.73m2 CKD-EPI eGFR (2020). Assuming creatinine has been stable day-to-day for at least three months, the eGFR indicates Category G2 (60 - 89 mL/min/1.73 m2) Lab Interpretation (test code = 72590-4) Abnormal [facility] with [id number] 03:58:19* Test Item Value Reference Range Interpretation Comme nts WBC (test code = 6690-2) 8.48 4.30-11.10 RBC (test code = 789-8) 4.33 3.93-5.25 HGB (test code = 718-7) 11.6 g/dL 11.6-15.0 HCT (test code = 4544-3) 37.5 % 35.7-45.2 MCV (test code = 787-2) 86.6 fL 80.6-95.5 MCH (test code = 785-6) 26.8 pg 25.9-32.8 MCHC (test code = 786-4) 30.9 g/dL 31.6-35.1 L RDW-SD (test code = 60915-2) 59.0 fL 39.0-49.9 H RDW-CV (test code = 788-0) 18.7 % 12.0-15.5 H PLT (test code = 777-3) 394 166-358 H MPV (test code = 32832-8) 8.5 fL 9.5-12.9 L NRBC/100 WBC (test code = 0902118476) 0.0 0.0-10.0 NRBC x10^3 (test code = 9238563951) See_Comment [Automated messa ge] The system which generated this result transmitted reference range: 10*3/?L. The reference range was not used to interpret this result as normal/abnormal. GRAN MAT (NEUT) % (test code = 770-8) 60.6 % IMM GRAN % (test code = 6644589554) 1.40 % LYMPH % (test code = 736-9) 26.9 % MONO % (test code = 5905-5) 8.7 % EOS % (test code = 713-8) 1.8 % BASO % (test code = 706-2) 0.6 % GRAN MAT x10^3(ANC) (test code = 2361019601) 5.14 10*3/uL 1.88-7.09 IMM GRAN x10^3 (test code = 6289489196) 0.12 10*3/uL 0.00-0.06 H LYMPH x10^3 (test code = 731-0) 2.28 10*3/uL 1.32-3.29 MONO x10^3 (test code = 742-7) 0.74 10*3/uL 0.33-0.92 EOS x10^3 (test code = 711-2) 0.15 10*3/uL 0.03-0.39 BASO x10^3 (test code = 704-7) 0.05 10*3/uL 0.01-0.07 Lab Interpretation (test code = 71741-4) [facility]2024-[facility]-10 16:40:03* Test Item Value Reference Range Interpretation Comme nts Height (test code = 3983274245) 62 in Weight (test code = 5285091097) 200 lbs Systolic BP (test code = 9134100364) 90 mmHg Diastolic BP (test code = 4173983776) 66 mmHg Heart Rate (test code = 4383825466) 69 bpm BSA (test code = 9251255810) 1.91 m2 LVOT diameter (test code = 0334066338) 2.13 cm LVOT area (test code = 2567768886) 3.60 cm2 LA size (test code = 9557035222) 3.5 cm LAV(MOD-sp4) (test code = 9691761026) 55.70 mL E wave decelartion time (test code = 0158820804) 0.12 s MV stenosis pressure 1/2 time (test code = 4526500254) 35.0 ms MV Peak A Evette (test code = 5149763696) 117.0 cm/s MV Peak E Evette (test code = 4266599606) 94.3 cm/s E/A ratio (test code = 9130196935) 0.81 ratio MV E/e' septal (test code = 3188183065) 10.2 cm/s LVOT stroke volume (test code = 6719482196) 59.50 cm3 LVOT peak evette (test code = 6983721876) 99.8 cm/s LVOT mn grad (test code = 4099173890) 1.9 mmHg AV LVOT peak gradient (test code = 2703365726) 4.0 mmHg LVOT peak VTI (test code = 3360609918) 16.7 cm LV V1 mean (test code = 2087125388) 64.40 cm/s Aortic valve mean velocity (test code = 0763920161) 155.3 cm/s Ao peak evette (test code = 0355822153) 222.6 cm/s Ao VTI (test code = 4836083381) 33.6 cm AV area by cont VTI (test code = 4006362080) 1.8 cm2 AV area peak evette (test code = 4105103141) 1.6 cm2 Ao max PG (test code = 1775316809) 19.80 mm[Hg] AV peak gradient (test code = 4292750181) 19.8 mmHg AV valve area (test code = 4270898554) 1.77 cm2 AV mean gradient (test code = 1809176535) 10.6 mmHg AV regurgitation pressure 1/2 time (test code = 7272984300) 651.6 ms AI dec slope (test code = 4122395961) 180.60 cm/s2 AI max evette (test code = 1992241453) 401.80 cm/s AI max PG (test code = 8262196333) 64.60 mm[Hg] LVIDD (test code = 5415795785) 4.90 cm Left Ventricular End Diastolic Volume by Teichholz Method (test code = 4750711) 114.6 mL IVS (test code = 4261922616) 1.17 cm Interventricular Septum Diastolic Thickness by 2D (test code = 5094611) 1.17 cm LVPWD (test code = 8326037190) 1.17 cm PW (test code = 8444444604) 1.17 cm 0.6-1.1 EF(Teich) (test code = 6655294056) 20.70 % LVIDS (test code = 5891285887) 4.50 cm Left Ventricular End Systolic Volume by Teichholz Method (test code = 4181302) 90.9 mL FS (test code = 9101781319) 9 % EF - 2D (test code = 34905680) 20.70 % Radiology Study observation (narrative) (test code = 03822-9) LYNDSAY (test code = LYNDSAY) ?Left?Ventricle: Left ventricle size is normal. Normal wall thickness. Severe global hypokinesis present. Apical akinesia. Severely reduced systolic function with a visually estimated EF of 20 - 25%. There is impaired relaxation. There seems to be a small mobile apical mass, likely thrombus. ?Right?Ventricle: Right ventricle size is normal. Moderately reduced systolic function. ?Tricuspid?Valve: Insufficient tricuspid regurgitation jet to estimate RVSP . ?RA pressure is 0-5 mmHg. Left VentricleLeft ventricle size is normal. Normal wall thickness. Severe global hypokinesis present. Apical akinesia. Severely reduced systolic function with a visually estimated EF of 20 - 25%. There is impaired relaxation. There seems to be a small mobile apical mass, likely thrombus.Right VentricleRight ventricle size is normal. Moderately reduced systolic function.Left AtriumLeft atrium size is normal.Right AtriumRight atrium size is normal.IVC/SVCIVC diameter is less than or equal to 21 mm and decreases greater than 50% during inspiration; therefore the estimated right atrial pressure is normal (~0-5 mmHg).Mitral ValveMild mitral annular calcification. Trace transvalvular regurgitation. No stenosis.Tricuspid ValveTricuspid valve structure is normal. Trace transvalvular regurgitation. Insufficient tricuspid regurgitation jet to estimate RVSP . RA pressure is 0-5 mmHg. No stenosis.Aortic ValveAortic valve opens well. Mild transvalvular regurgitation. No hemodynamically significant .Pulmonic ValveNot well visualized. Trace transvalvular regurgitation. No stenosis.Ascending AortaNormal sized aortic root.PericardiumTrivia l pericardial effusion present. No indication of cardiac tamponade.Study DetailsStudy quality was adequate. A limited echocardiogram was performed using 2D, color flow Doppler and spectral Doppler. 3 mL of Optison ultrasound enhancing agent used. [facility] Whole [id number] 02:02:28* Test Item Value Reference Range Interpretation Comme nts LACTIC ACID (test code = 3489001768) 1.36 mmol/L 0.50-2.20 Lab Interpretation (test cod e = 10576-7) [facility] [id number] 01:16:45CTA CHEST WITH IV CONTRAST ORDERING PHYSICIAN: OLENA DEL CASTILLO HISTORY: Pulmonary emboli suspected, elevated d-dimer COMPARISON: 12/11/2022 TECHNIQUE: CTA of the chest with IV contrast. Standard andMIPreconstructions performed. CT performed with ALARA (As Low As ReasonablyAchievable) principles. FINDINGS: The heart is normal in size. There is no pleural effusion. No pericardialeffusion. The aorta and pulmonary artery are normal. There is no pathologiclymphadenopathy. Mild centrilobular emphysema. Calcified granulomas in the left lung apex.Mild bilateral ground glass opacity. Dependent atelectasis in the bilaterallower lobes. No pleural effusion or pneumothorax. Diffuse bronchial wallthickening. There is no filling defect within the pulmonary artery to the subsegmentallevel. Status post cholecystectomy. There is a 2.9 cm left adrenal adenoma. ACDF hardware in the lower cervical spine.[facility] [id number] 23:07:58Exam: Chest (1 View), 01/09/2024 4:15 PM. Ordering Physician: OLENA DEL CASTILLO. History: Chest Pain. Technique: One view of the chest. Comparison: 12/14/2023. Findings: Cardiac silhouette is mildly enlarged. There is no pneumothorax. There isno consolidation or pleural effusion. Pleural and diaphragmatic contoursare normal. Calcified granuloma is seen in the left upper lobe. Changes ofanterior cervical discectomy and fusion are seen.[facility] PasoTROPONIN [id number] 22:51:19* Test Item Value Reference Range Interpretation Comme nts TROPONIN I (test code = 8116632032) 0.006 ng/mL <=0.034 LYNDSAY (test code = LYNDSAY) [...] of biotin. Lab Interpretation (test code = 15794-6) Normal [facility] PasoN-TERMINAL [id number] 22:48:38* Test Item Value Reference Range Interpretation Comme nts NT-proBNP (test code = 69723-2) 877 pg/mL <=125 LYNDSAY (test code = LYNDSAY) Result Indeterminate-Consid er causes of NT-proBNP elevation other than Heart failure such as acute coronary syndrome, pulmonary embolism, pulmonary hypertension, sepsis, stroke, and renal dysfunction. Lab Interpretation (test code = 75259-9) Abnormal [facility] PasoCOMP. METABOLIC PANEL (11067)2024-01-09 22:42:20* Test Item Value Reference Range Interpretation Comme nts NA (test code = 2736652660) 137 mmol/L 135-145 K (test code = 8412807305) 3.8 mmol/L 3.5-5.0 CL (test code = 9688916970) 104 mmol/L 98-108 CO2 TOTAL (test code = 5889946611) 25 mmol/L 23-31 AGAP (test code = 2647535599) 8 2-16 BUN (test code = 6116565214) 7 mg/dL 7-23 GLUCOSE (test code = 8221101854) 96 mg/dL 70-110 CREATININE (test code = 2160-0) 0.60 mg/dL 0.50-1.04 TOTAL BILI (test code = 0204376754) 0.4 mg/dL 0.1-1.1 CALCIUM (test code = 0767186858) 8.7 mg/dL 8.6-10.6 T PROTEIN (test code = 9471539688) 7.0 g/dL 6.3-8.2 ALBUMIN (test code = 3283588002) 3.9 g/dL 3.5-5.0 ALK PHOS (test code = 2180448546) 101 U/L 34-122 ALTv (test code = 1742-6) 7 U/L 5-35 AST(SGOT) (test code = 6243915250) 20 U/L 13-40 eGFR (test code = 17661-1) 108.8 mL/min/1.73m2 CKD-EPI eGFR (20 21). Assuming creatinine has been stable day-to-day for at least three months, the eGFR indicates Category G1 (>= 90 mL/min/1.73 m2) [facility] PasoD-[id number] 22:28:57* Test Item Value Reference Range Interpretation Comments D-DIMER (test code = 7922604354) 0.87 See_Comment H [Automated message] The system which generated this result transmitted reference range: <0.50 ?g/mL (FEU). The reference range was not [...] a diagnosis. Lab Interpretation (test code = 08919-8) Abnormal [facility] WITH [id number] 22:09:01* Test Item Value Reference Range Interpretation Comme nts WBC (test code = 6690-2) 8.52 4.30-11.10 RBC (test code = 789-8) 4.11 3.93-5.25 HGB (test code = 718-7) 10.7 g/dL 11.6-15.0 L HCT (test code = 4544-3) 35.4 % 35.7-45.2 L MCV (test code = 787-2) 86.1 fL 80.6-95.5 MCH (test code = 785-6) 26.0 pg 25.9-32.8 MCHC (test code = 786-4) 30.2 g/dL 31.6-35.1 L RDW-SD (test code = 67183-5) 58.1 fL 39.0-49.9 H RDW-CV (test code = 788-0) 18.6 % 12.0-15.5 H PLT (test code = 777-3) 312 166-358 MPV (test code = 12642-1) 8.3 fL 9.5-12.9 L NRBC/100 WBC (test code = 2359209158) 0.0 0.0-10.0 NRBC x10^3 (test code = 0469962586) See_Comment [Automated messa ge] The system which generated this result transmitted reference range: 10*3/?L. The reference range was not used to interpret this result as normal/abnormal. GRAN MAT (NEUT) % (test code = 770-8) 60.1 % IMM GRAN % (test code = 5334205843) 0.70 % LYMPH % (test code = 736-9) 27.3 % MONO % (test code = 5905-5) 10.1 % EOS % (test code = 713-8) 1.2 % BASO % (test code = 706-2) 0.6 % GRAN MAT x10^3(ANC) (test code = 1691997076) 5.12 10*3/uL 1.88-7.09 IMM GRAN x10^3 (test code = 2425589938) 0.06 10*3/uL 0.00-0.06 LYMPH x10^3 (test code = 731-0) 2.33 10*3/uL 1.32-3.29 MONO x10^3 (test code = 742-7) 0.86 10*3/uL 0.33-0.92 EOS x10^3 (test code = 711-2) 0.10 10*3/uL 0.03-0.39 BASO x10^3 (test code = 704-7) 0.05 10*3/uL 0.01-0.07 Lab Interpretation (test code = 96366-3) [facility]normal [facility] Paso[facility] GLUCOSE (AUTOMATED)2023-12-15 12:45:21* Test Item Value Reference Range Interpretation Comme nts POCT GLU (test code = 4350435742) 144 mg/dL 70-110 H Lab Interpretation (test cod e = 28278-3) Abnormal [facility] PasoThyroid Stimulating [id number] 01:46:59 * Test Item Value Reference Range Interpretation Comme nts TSH (test code = 9112157499) 1.14 0.45-4.70 Lab Interpretation (test cod e = 58418-7) Normal [facility] PasoFR [id number] 01:33:00* Test Item Value Reference Range Interpretation Comme nts FREE T3 (test code = 3664195378) 3.68 pg/mL 2.77-5.27 Lab Interpretation (test cod e = 03391-5) Normal [facility] PasoPO[facility] GLUCOSE (AUTOMATED)2023-12-15 00:57:48* Test Item Value Reference Range Interpretation Comme [facility] POCT GLU (test code = 7113140901) 131 mg/dL 70-110 H Lab Interpretation (test cod e = 86082-2) Abnormal [facility] PasoTroponin [id number] 21:45:52* Test Item Value Reference Range Interpretation Comme [facility] TROPONIN I (test code = 3504640678) 0.009 ng/mL <=0.034 LYNDSAY (test code = LYNDSAY) [...] of biotin. Lab Interpretation (test code = 48985-7) Normal [facility]. Metabolic Panel (45859)2023-12-14 20:19:49* Test Item Value Reference Range Interpretation Comme [facility] NA (test code = 9558987998) 138 mmol/L 135-145 K (test code = 9090641422) 3.5 mmol/L 3.5-5.0 CL (test code = 8789664482) 108 mmol/L 98-108 CO2 TOTAL (test code = 2157024082) 24 mmol/L 23-31 AGAP (test code = 0477306766) 6 2-16 BUN (test code = 8261836886) 7 mg/dL 7-23 GLUCOSE (test code = 9991561534) 96 mg/dL 70-110 CREATININE (test code = 2160-0) 0.51 mg/dL 0.50-1.04 TOTAL BILI (test code = 0533877828) 0.4 mg/dL 0.1-1.1 CALCIUM (test code = 1641855023) 8.6 mg/dL 8.6-10.6 T PROTEIN (test code = 7864922227) 6.8 g/dL 6.3-8.2 ALBUMIN (test code = 9179219654) 3.8 g/dL 3.5-5.0 ALK PHOS (test code = 9000072272) 107 U/L 34-122 ALTv (test code = 1742-6) 13 U/L 5-35 AST(SGOT) (test code = 8192681448) 28 U/L 13-40 eGFR (test code = 82702-8) 113.2 mL/min/1.73m2 CKD-EPI eGFR (20 21). Assuming creatinine has been stable day-to-day for at least three months, the eGFR indicates Category G1 (>= 90 mL/min/1.73 m2) [facility] PasoTroponin [id number] 20:15:27* Test Item Value Reference Range Interpretation Comme nts TROPONIN I (test code = 2587034687) 0.009 ng/mL <=0.034 LYNDSAY (test code = LYNDSAY) [...] of biotin. Lab Interpretation (test code = 51148-6) Normal [facility] PasoN-Terminal Qqa-[id number] 20:12:51* Test Item Value Reference Range Interpretation Comme nts NT-proBNP (test code = 31839-9) 2250 pg/mL <=125 H LYNDSAY (test code = LYNDSAY) Positive: Heart Failure Likely Lab Interpretation (test code = 61400-2) Abnormal [facility] 1 [id number] 20:00:17EXAM: XR CHEST 1 VW COMPARISON: 12/02/2023 HISTORY: 53 years-old Female; shortness of breath FINDINGS: Lungs: The lung volumes are normal. Left upper lung calcified granuloma. Nofocal opacities. No pneumothorax. No pleural effusion. Heart/Mediastinum: The cardiac silhouette appears normal. Bones andsoft tissues: No acute osseous findings are detected.Redemonstrated ACDF projecting over the lower cervical spine.[facility] PasoD-Sqpos4496-38-18 19:45:05* Test Item Value Reference Range Interpretation Comments D-DIMER (test code = 4211561232) 1.33 See_Comment H [Automated message] The system which generated this result transmitted reference range: <0.50 ?g/mL (FEU). The reference range was not [...] a diagnosis. Lab Interpretation (test code = 70827-8) Abnormal [facility] PasoCb with [id number] 19:39:29* Test Item Value Reference Range Interpretation Comme nts WBC (test code = 6690-2) 7.24 4.30-11.10 RBC (test code = 789-8) 4.04 3.93-5.25 HGB (test code = 718-7) 10.7 g/dL 11.6-15.0 L HCT (test code = 4544-3) 35.9 % 35.7-45.2 MCV (test code = 787-2) 88.9 fL 80.6-95.5 MCH (test code = 785-6) 26.5 pg 25.9-32.8 MCHC (test code = 786-4) 29.8 g/dL 31.6-35.1 L RDW-SD (test code = 93325-7) 70.2 fL 39.0-49.9 H RDW-CV (test code = 788-0) 21.6 % 12.0-15.5 H PLT (test code = 777-3) 259 166-358 MPV (test code = 40314-8) 8.7 fL 9.5-12.9 L NRBC/100 WBC (test code = 5273957404) 0.0 0.0-10.0 NRBC x10^3 (test code = 6784576114) See_Comment [Automated messa ge] The system which generated this result transmitted reference range: 10*3/?L. The reference range was not used to interpret this result as normal/abnormal. GRAN MAT (NEUT) % (test code = 770-8) 57.7 % IMM GRAN % (test code = 6230169100) 0.40 % LYMPH % (test code = 736-9) 30.2 % MONO % (test code = 5905-5) 9.9 % EOS % (test code = 713-8) 0.8 % BASO % (test code = 706-2) 1.0 % GRAN MAT x10^3(ANC) (test code = 8186945012) 4.17 10*3/uL 1.88-7.09 IMM GRAN x10^3 (test code = 8901859676) 0.03 10*3/uL 0.00-0.06 LYMPH x10^3 (test code = 731-0) 2.19 10*3/uL 1.32-3.29 MONO x10^3 (test code = 742-7) 0.72 10*3/uL 0.33-0.92 EOS x10^3 (test code = 711-2) 0.06 10*3/uL 0.03-0.39 BASO x10^3 (test code = 704-7) 0.07 10*3/uL 0.01-0.07 Lab Interpretation (test code = 61256-7) Abnormal [facility] GLUCOSE (AUTOMATED)2023-12-03 21:30:58* Test Item Value Reference Range Interpretation Comme nts POCT GLU (test code = 4313608726) 102 mg/dL 70-110 Lab Interpretation (test cod e = 30878-3) Normal [facility] Metabolic Panel (NA, K, CL, CO2, GLUCOSE, BUN, CREATININE, CA)2023-12-03 18:22:31* Test Item Value Reference Range Interpretation Comme nts NA (test code = 5491701992) 135 mmol/L 135-145 K (test code = 2680393978) 3.9 mmol/L 3.5-5.0 CL (test code = 3093178260) 103 mmol/L 98-108 CO2 TOTAL (test code = 7002424739) 29 mmol/L 23-31 AGAP (test code = 3503643500) 3 2-16 BUN (test code = 7491340582) 12 mg/dL 7-23 GLUCOSE (test code = 2186811933) 85 mg/dL 70-110 CREATININE (test code = 2160-0) 0.63 mg/dL 0.50-1.04 CALCIUM (test code = 4010427807) 8.7 mg/dL 8.6-10.6 eGFR (test code = 41182-7) 107.6 mL/min/1.73m2 CKD-EPI eGFR (20 21). Assuming creatinine has been stable day-to-day for at least three months, the eGFR indicates Category G1 (>= 90 mL/min/1.73 m2) [facility] GLUCOSE (AUTOMATED)2023-12-03 16:52:56* Test Item Value Reference Range Interpretation Comme nts POCT GLU (test code = 0503894301) 98 mg/dL 70-110 Lab Interpretation (test cod e = 61063-0) Normal [facility] GLUCOSE (AUTOMATED)2023-12-03 13:01:11* Test Item Value Reference Range Interpretation Comme nts POCT GLU (test code = 0327647179) 102 mg/dL 70-110 Lab Interpretation (test cod e = 53343-0) Normal [facility] Metabolic Panel (NA, K, CL, CO2, GLUCOSE, BUN, CREATININE, CA)2023-12-03 10:22:08* Test Item Value Reference Range Interpretation Comme nts NA (test code = 1730598791) 138 mmol/L 135-145 K (test code = 0992919914) 3.2 mmol/L 3.5-5.0 L CL (test code = 4575974144) 105 mmol/L 98-108 CO2 TOTAL (test code = 4490307156) 26 mmol/L 23-31 AGAP (test code = 7227657477) 7 2-16 BUN (test code = 7688092907) 11 mg/dL 7-23 GLUCOSE (test code = 6685438970) 96 mg/dL 70-110 CREATININE (test code = 2160-0) 0.61 mg/dL 0.50-1.04 CALCIUM (test code = 2717433602) 8.6 mg/dL 8.6-10.6 eGFR (test code = 75950-0) 108.4 mL/min/1.73m2 CKD-EPI eGFR (2020). Assuming creatinine has been stable day-to-day for at least three months, the eGFR indicates Category G1 (>= 90 mL/min/1.73 m2) Lab Interpretation (test code = 87628-7) Abnormal [facility] PasoMagnesium2024-05-16 10:22:08* Test Item Value Reference Range Interpretation Comme nts MAGNESIUM (test code = 0786527666) 1.9 mg/dL 1.7-2.4 Lab Interpretation (test cod e = 25148-4) Normal [facility] PasoHepatic Function Panel (97498) (ALB,T.PRO,BILI T,BU/BC,ALT,AST,ALK PHOS)2023-12-03 10:22:08* Test Item Value Reference Range Interpretation Comme nts TOTAL BILI (test code = 8467146382) 0.5 mg/dL 0.1-1.1 BILI UNCON (test code = 3848153134) 0.2 mg/dL 0.1-1.1 BILI CONJ (test code = 0194019070) 0.0 mg/dL 0.0-0.3 T PROTEIN (test code = 3101254878) 6.7 g/dL 6.3-8.2 ALBUMIN (test code = 3345770504) 3.7 g/dL 3.5-5.0 ALK PHOS (test code = 3050410590) 135 U/L 34-122 H ALTv (test code = 1742-6) 26 U/L 5-35 AST(SGOT) (test code = 5092864596) 24 U/L 13-40 Lab Interpretation (test cod e = 70362-0) Abnormal [facility] PasoAC Panel 21 + Lactic [id number] 02:00:25* Test Item Value Reference Range Interpretation Comme nts PH (test code = 3302494050) 7.40 7.32-7.42 PCO2 NOEMI (test code = 8118980341) 40 41-51 L PO2 NOEMI (test code = 3938442621) 34 25-40 HCO3 NOEMI (test code = 1348598625) 24 24-28 AC VBE(BEAKER) (test code = 0746458104) -0.8 mEq/L THB NOEMI (test code = 7812682299) 9.3 g/dL 12.0-16.0 L %O2HB NOEMI (test code = 6823647536) 57.9 % 52.0-63.0 %COHB NOEMI (test code = 4405691572) 1.1 % 0.0-1.5 %METHB NOEMI (test code = 7778352013) 0.3 % 0.4-1.5 L VOL%O2 NOEMI (test code = 1752017758) 7.6 % 6.0-12.0 NA (test code = 6132411562) 139 mmol/L 135-145 K+ (test code = 4680748033) 3.5 mmol/L 3.5-5.0 AC CA IONZ (test code = 0326207436) 4.50 mg/dL 4.50-5.30 GLUCOSE (test code = 0845762210) 88 mg/dL 70-110 LACTIC ACID (test code = 1981137123) 1.63 mmol/L 0.50-2.20 QUES Lab Interpretation (test cod e = 14493-7) Abnormal [facility] PasoCT CHEST PULMONARY [id number] 19:47:28HISTORY: Chest pain, rule out P.E. TECHNIQUE: Contrast-enhanced 66- mutidetector CT scan of the chest wascompleted with intravenous injection of ?non ionic contrast medium.Subsequently numerous sagittal, coronal and MIP reformations weregenerated. FINDINGS: Comparison made with study. Previously detected right lower lobe segmental pulmonary embolism is barelyappreciated at this time. No new pulmonary thromboemboli visualized. Triple-vessel coronary atherosclerosis again visualized. 4 mmnodule isseen in the right upper lung (14:65). 7 mm nodule is seen in the rightupper lung (14:77). Additional nodules are seen in the right middle lobe(14:92 through 95). Calcified granuloma in the left upper lung noted. Minimal congestion is seen in the anterior basal segment of the left lowerlung. Minimal obstructive lung disease noted in both lungs with smallperipheral based emphysematous bulla on both sides. No pleural effusion orpericardial effusion. No enlarged hilar or mediastinal lymph nodes. No focal lesions visualized in the thyroid gland. Trachea and centralbronchial airways appearnormal. Irregular shaped 2.9 cm left adrenal gland nodule is noted. Cholecystectomynoted. Mild thoracic degenerative spondylosis noted. No compression fracture oraggressive bone lesions visualized. CONCLUSIONS:1. Previously detected pulmonary emboli in right lower lobe showsignificant interval improvement with minimal residual luminal irregularityseen at this time. No new pulmonary thromboemboli.2. Ill-defined right pulmonary nodules. Some of the nodules are new andsome of the nodules seen previously have resolved. Therefore, etiologycould be pulmonary infection/reactive airway disease.3. Triple vessel coronary atherosclerosis.4. 2.9 cm left adrenal gland nodule, an incidental nonfunctioning adenoma,essentially unchanged since November 2022 study.[facility] PasoRut [id number] 19:38:49* Test Item Value Reference Range Interpretation Comme nts TROPONIN I (test code = 3540487314) 0.020 ng/mL <=0.034 LYNDSAY (test code = LYNDSAY) [...] of biotin. Lab Interpretation (test code = 30598-6) Normal [facility] PasoN-Terminal Mwc-Stw4496-30-15 19:37:29* Test Item Value Reference Range Interpretation Comme nts NT-proBNP (test code = 58375-6) 3420 pg/mL <=125 H LYNDSAY (test code = LYNDSAY) Positive: Heart Failure Likely Lab Interpretation (test code = 08870-5) Abnormal [facility] PasoCbc with [id number] 19:28:47* Test Item Value Reference Range Interpretation Comme nts WBC (test code = 6690-2) 10.95 4.30-11.10 RBC (test code = 789-8) 4.24 3.93-5.25 HGB (test code = 718-7) 10.9 g/dL 11.6-15.0 L HCT (test code = 4544-3) 36.6 % 35.7-45.2 MCV (test code = 787-2) 86.3 fL 80.6-95.5 MCH (test code = 785-6) 25.7 pg 25.9-32.8 L MCHC (test code = 786-4) 29.8 g/dL 31.6-35.1 L RDW-SD (test code = 63956-3) 68.9 fL 39.0-49.9 H RDW-CV (test code = 788-0) 22.6 % 12.0-15.5 H PLT (test code = 777-3) 379 166-358 H MPV (test code = 96005-6) 9.1 fL 9.5-12.9 L NRBC/100 WBC (test code = 3380916019) 0.0 0.0-10.0 NRBC x10^3 (test code = 8887587957) See_Comment [Automated messa ge] The system which generated this result transmitted reference range: 10*3/?L. The reference range was not used to interpret this result as normal/abnormal. GRAN MAT (NEUT) % (test code = 770-8) 73.5 % IMM GRAN % (test code = 4104385527) 1.70 % LYMPH % (test code = 736-9) 14.9 % MONO % (test code = 5905-5) 8.3 % EOS % (test code = 713-8) 1.2 % BASO % (test code = 706-2) 0.4 % GRAN MAT x10^3(ANC) (test code = 6542610827) 8.05 10*3/uL 1.88-7.09 H IMM GRAN x10^3 (test code = 5878664857) 0.19 10*3/uL 0.00-0.06 H LYMPH x10^3 (test code = 731-0) 1.63 10*3/uL 1.32-3.29 MONO x10^3 (test code = 742-7) 0.91 10*3/uL 0.33-0.92 EOS x10^3 (test code = 711-2) 0.13 10*3/uL 0.03-0.39 BASO x10^3 (test code = 704-7) 0.04 10*3/uL 0.01-0.07 Lab Interpretation (test code = 08356-1) [facility]normal [facility] Paso[facility] 1 [id number] 19:28:17HISTORY: Dyspnea. TECHNIQUE: Portable AP view of the chest is obtained. Comparison made with11/21/2023 study. FINDINGS: No acute pneumonia. No pneumothorax or pleural effusion orpulmonary congestion detected. Mild cardiomegaly noted. Multilevel lowercervical ACDF surgical changes partially visualized. Mild degenerativechanges noted in the right glenohumeral joint. CONCLUSIONS: Mild cardiomegaly.[facility] PasoComp. Metabolic Panel (78535) 2023-12-02 19:27:30* Test Item Value Reference Range Interpretation Comme nts NA (test code = 2376329627) 138 mmol/L 135-145 K (test code = 4786990261) 3.8 mmol/L 3.5-5.0 CL (test code = 8876865046) 106 mmol/L 98-108 CO2 TOTAL (test code = 3051288791) 22 mmol/L 23-31 L AGAP (test code = 3816182006) 10 2-16 BUN (test code = 0831018260) 11 mg/dL 7-23 GLUCOSE (test code = 9320942231) 103 mg/dL 70-110 CREATININE (test code = 2160-0) 0.56 mg/dL 0.50-1.04 TOTAL BILI (test code = 8901178942) 0.8 mg/dL 0.1-1.1 CALCIUM (test code = 4031365747) 8.9 mg/dL 8.6-10.6 T PROTEIN (test code = 6320518859) 7.3 g/dL 6.3-8.2 ALBUMIN (test code = 9346431398) 3.9 g/dL 3.5-5.0 ALK PHOS (test code = 4008772065) 147 U/L 34-122 H ALTv (test code = 1742-6) 34 U/L 5-35 AST(SGOT) (test code = 2268184764) 30 U/L 13-40 eGFR (test code = 09232-5) 110.7 mL/min/1.73m2 CKD-EPI eGFR (2020). Assuming creatinine has been stable day-to-day for at least three months, the eGFR indicates Category G1 (>= 90 mL/min/1.73 m2) Lab Interpretation (test code = 98192-3) Abnormal [facility] PasoN-Terminal Brp-Ulb2044-64-11 17:53:15* Test Item Value Reference Range Interpretation Comme [facility] NT-proBNP (test code = 64294-9) 1070 pg/mL <=125 H LYNDSAY (test code = LYNDSAY) Positive: Heart Failure Likely Lab Interpretation (test code = 58698-4) [facility]normal [facility] PasoPOCT GLUCOSE (AUTOMATED)2023-11-28 16:41:29* Test Item Value Reference Range Interpretation Comme nts POCT GLU (test code = 5541865301) 129 mg/dL 70-110 H Lab Interpretation (test cod e = 18174-9) Abnormal [facility] PasoMagnesium2024-05-11 10:02:12* Test Item Value Reference Range Interpretation Comme nts MAGNESIUM (test code = 1548104637) 2.1 mg/dL 1.7-2.4 Lab Interpretation (test cod e = 48729-2) Normal [facility] PasoPhosphorus2024-05-11 10:02:12* Test Item Value Reference Range Interpretation Comme nts PHOSPHORUS (test code = 7695306389) 5.9 mg/dL 2.5-5.0 H Lab Interpretation (test cod e = 88692-1) Abnormal [facility]. Metabolic Panel (32441)2023-11-28 10:02:12* Test Item Value Reference Range Interpretation Comme nts NA (test code = 9715643760) 140 mmol/L 135-145 K (test code = 0321943699) 3.7 mmol/L 3.5-5.0 CL (test code = 5499312126) 98 mmol/L 98-108 CO2 TOTAL (test code = 6535749884) 33 mmol/L 23-31 H AGAP (test code = 1859518397) 9 2-16 BUN (test code = 3730152882) 24 mg/dL 7-23 H GLUCOSE (test code = 7164145264) 107 mg/dL 70-110 CREATININE (test code = 2160-0) 0.61 mg/dL 0.50-1.04 TOTAL BILI (test code = 8036925630) 0.6 mg/dL 0.1-1.1 CALCIUM (test code = 3075279486) 8.0 mg/dL 8.6-10.6 L T PROTEIN (test code = 8042223114) 6.0 g/dL 6.3-8.2 L ALBUMIN (test code = 1361918770) 3.4 g/dL 3.5-5.0 L ALK PHOS (test code = 9077926350) 173 U/L 34-122 H ALTv (test code = 1742-6) 61 U/L 5-35 H AST(SGOT) (test code = 1914952085) 29 U/L 13-40 eGFR (test code = 32033-9) 108.4 mL/min/1.73m2 CKD-EPI eGFR (2020). Assuming creatinine has been stable day-to-day for at least three months, the eGFR indicates Category G1 (>= 90 mL/min/1.73 m2) Lab Interpretation (test code = 48011-9) Abnormal [facility] with Jfoe7711-68-63 09:37:29* Test Item Value Reference Range Interpretation Comme nts WBC (test code = 6690-2) 8.04 4.30-11.10 RBC (test code = 789-8) 4.64 3.93-5.25 HGB (test code = 718-7) 11.4 g/dL 11.6-15.0 L HCT (test code = 4544-3) 38.7 % 35.7-45.2 MCV (test code = 787-2) 83.4 fL 80.6-95.5 MCH (test code = 785-6) 24.6 pg 25.9-32.8 L MCHC (test code = 786-4) 29.5 g/dL 31.6-35.1 L RDW-SD (test code = 51261-0) 65.6 fL 39.0-49.9 H RDW-CV (test code = 788-0) 22.0 % 12.0-15.5 H PLT (test code = 777-3) 292 166-358 MPV (test code = 15798-7) 9.1 fL 9.5-12.9 L NRBC/100 WBC (test code = 3378440240) 0.0 0.0-10.0 NRBC x10^3 (test code = 7717388565) See_Comment [Automated messa ge] The system which generated this result transmitted reference range: 10*3/?L. The reference range was not used to interpret this result as normal/abnormal. GRAN MAT (NEUT) % (test code = 770-8) 62.0 % IMM GRAN % (test code = 2470871204) 1.20 % LYMPH % (test code = 736-9) 28.5 % MONO % (test code = 5905-5) 7.3 % EOS % (test code = 713-8) 0.9 % BASO % (test code = 706-2) 0.1 % GRAN MAT x10^3(ANC) (test code = 2830280816) 4.98 10*3/uL 1.88-7.09 IMM GRAN x10^3 (test code = 5999828305) 0.10 10*3/uL 0.00-0.06 H LYMPH x10^3 (test code = 731-0) 2.29 10*3/uL 1.32-3.29 MONO x10^3 (test code = 742-7) 0.59 10*3/uL 0.33-0.92 EOS x10^3 (test code = 711-2) 0.07 10*3/uL 0.03-0.39 BASO x10^3 (test code = 704-7) 0.01-0.07 Lab Interpretation (test code = 56041-5) Abnormal [facility] GLUCOSE (AUTOMATED)2023-11-28 01:32:15* Test Item Value Reference Range Interpretation Comme nts POCT GLU (test code = 4282418766) 154 mg/dL 70-110 H Lab Interpretation (test cod e = 06105-5) Abnormal [facility] GLUCOSE (AUTOMATED)2023-11-27 21:45:44* Test Item Value Reference Range Interpretation Comme nts POCT GLU (test code = 6787370998) 183 mg/dL 70-110 H Lab Interpretation (test cod e = 85520-9) Abnormal [facility] GLUCOSE (AUTOMATED)2023-11-27 16:31:46* Test Item Value Reference Range Interpretation Comme nts POCT GLU (test code = 6108016981) 96 mg/dL 70-110 Lab Interpretation (test cod e = 55518-1) Normal [facility] GLUCOSE (AUTOMATED)2023-11-27 12:42:32* Test Item Value Reference Range Interpretation Comme nts POCT GLU (test code = 0656067412) 88 mg/dL 70-110 Lab Interpretation (test cod e = 41254-3) [facility] Whole Qprhk0635-87-38 06:44:07* Test Item Value Reference Range Interpretation Comme nts LACTIC ACID (test code = 5191836779) 1.48 mmol/L 0.50-2.20 Lab Interpretation (test cod e = 50218-7) Normal [facility] GLUCOSE (AUTOMATED)2023-11-27 02:37:00* Test Item Value Reference Range Interpretation Comme nts POCT GLU (test code = 2421992187) 167 mg/dL 70-110 H Lab Interpretation (test cod e = 85108-7) Abnormal [facility], Ovuf7921-32-18 00:22:04* Test Item Value Reference Range Interpretation Comme nts Valproic Acid, Free (test code = 6643230185) 23.8 ug/mL 4.0-15.0 H LYNDSAY (test code = LYNDSAY) Toxic Range: ? Greater than 15 ug/mL Test developed and characteristics determined by [facility] Laboratory Services. Lab Interpretation (test code = 81034-8) [facility]normal [facility] Paso[facility]olate2024-05-09 22:17:52* Test Item Value Reference Range Interpretation Comme nts FOLATE SER (test code = 7189031598) 10.9 ng/mL 3.0-20.0 Lab Interpretation (test cod e = 15359-6) Normal [facility] PasoVitamin B12, Iolmy4476-29-38 22:17:52* Test Item Value Reference Range Interpretation Comme nts VIT B12 (test code = 7959330137) 485 pg/mL 240-930 LYNDSAY (test code = LYNDSAY) Biotin has been reported to cause a positive bias, interpret results relative to patient's use of biotin. Lab Interpretation (test code = 04683-7) Normal [facility] HEAD WO QDTGNJWY8942-25-75 22:17:11EXAM: CT HEAD WO CONTRAST HISTORY: 53 years-old Female; Seizure, nontraumatic. TECHNIQUE: Axial CT of the head was performed and reconstructed. [place] sagittal reformatted images were generated. COMPARISON: CT head without contrast 12/11/2022 FINDINGS: The ventricles and cerebral sulci are unchanged in caliber andconfiguration. No midline shift or pathological extra-axial fluidcollection is present. The basal cisterns are unremarkable. No acute intracranial hemorrhage or significant mass effect is visualized.Periventricular hypodensities are nonspecific but likely represent sequelaeof microvascular ischemic disease. The rose-white matter differentiation ispreserved. Retention cyst is noted in the left maxillary sinus. Partial opacificationof the left sphenoid sinus. The mastoid air cells and visualized remainderparanasal air sinuses are clear. The calvarium and central skull base areunremarkable. [facility] Paso[facility]esium2024-05-09 22:11:53* Test Item Value Reference Range Interpretation Comme nts MAGNESIUM (test code = 8055623646) 2.1 mg/dL 1.7-2.4 Lab Interpretation (test cod e = 05544-3) Normal [facility] Paso[facility]. Metabolic Panel (20837)2023-11-26 22:11:53* Test Item Value Reference Range Interpretation Comme nts NA (test code = 1496519024) 132 mmol/L 135-145 L K (test code = 8216887785) 4.3 mmol/L 3.5-5.0 CL (test code = 4271704925) 94 mmol/L 98-108 L CO2 TOTAL (test code = 5518903896) 34 mmol/L 23-31 H AGAP (test code = 4319425606) 4 2-16 BUN (test code = 7371213083) 24 mg/dL 7-23 H GLUCOSE (test code = 1411910381) 178 mg/dL 70-110 H CREATININE (test code = 2160-0) 0.62 mg/dL 0.50-1.04 TOTAL BILI (test code = 1897577222) 0.6 mg/dL 0.1-1.1 CALCIUM (test code = 7044219804) 8.0 mg/dL 8.6-10.6 L T PROTEIN (test code = 8330163875) 6.1 g/dL 6.3-8.2 L ALBUMIN (test code = 9786938977) 3.5 g/dL 3.5-5.0 ALK PHOS (test code = 5141967239) 212 U/L 34-122 H ALTv (test code = 1742-6) 80 U/L 5-35 H AST(SGOT) (test code = 1759732258) 51 U/L 13-40 H eGFR (test code = 82287-3) 108.0 mL/min/1.73m2 CKD-EPI eGFR (2020). Assuming creatinine has been stable day-to-day for at least three months, the eGFR indicates Category G1 (>= 90 mL/min/1.73 m2) Lab Interpretation (test code = 70077-7) [facility]normal [facility]SE [facility])2023-11-26 21:19:06* Test Item Value Reference Range Interpretation Comme [facility] POCT GLU (test code = 6457322563) 224 mg/dL 70-110 H Lab Interpretation (test cod e = 84769-3) Abnormal [facility] PasoKeppra (Levetiracetam)2023-11-26 19:45:17* Test Item Value Reference Range Interpretation Comme [facility] KEPPRA (test code = 8323521532) 12-46 L LYNDSAY (test code = LYNDSAY) Therapeutic range: 12-46 ?g/mL ? ?Toxic: Not well established.Test developed and characteristics determined by [facility] Laboratory Services. Lab Interpretation (test code = 49109-3) Abnormal [facility] PasoLasc[facility] Acid Whole Hyegb0010-48-56 18:11:07* Test Item Value Reference Range Interpretation Comme [facility] LACTIC ACID (test code = 3060375823) 6.19 mmol/L 0.50-2.20 H Lab Interpretation (test cod e = 03433-7) Abnormal [facility] Paso[facility] GLUCOSE (AUTOMATED)2023-11-26 17:06:14* Test Item Value Reference Range Interpretation Comme [facility] POCT GLU (test code = 0445242185) 293 mg/dL 70-110 H Lab Interpretation (test cod e = 63399-7) Abnormal [facility]. Metabolic Panel (03630)2023-11-26 14:21:31* Test Item Value Reference Range Interpretation Comme nts NA (test code = 9303091788) 140 mmol/L 135-145 K (test code = 3247766266) 3.9 mmol/L 3.5-5.0 CL (test code = 2900737613) 93 mmol/L 98-108 L CO2 TOTAL (test code = 8735914717) 38 mmol/L 23-31 H AGAP (test code = 1793874792) 9 2-16 BUN (test code = 7415204744) 25 mg/dL 7-23 H GLUCOSE (test code = 6857004291) 83 mg/dL 70-110 CREATININE (test code = 2160-0) 0.71 mg/dL 0.50-1.04 TOTAL BILI (test code = 4133291328) 0.7 mg/dL 0.1-1.1 CALCIUM (test code = 9241712056) 8.7 mg/dL 8.6-10.6 T PROTEIN (test code = 9470145714) 6.6 g/dL 6.3-8.2 ALBUMIN (test code = 5255182895) 3.6 g/dL 3.5-5.0 ALK PHOS (test code = 9087503324) 220 U/L 34-122 H ALTv (test code = 1742-6) 95 U/L 5-35 H AST(SGOT) (test code = 5516254112) 47 U/L 13-40 H eGFR (test code = 86407-4) 103.1 mL/min/1.73m2 CKD-EPI eGFR (2020). Assuming creatinine has been stable day-to-day for at least three months, the eGFR indicates Category G1 (>= 90 mL/min/1.73 m2) Lab Interpretation (test code = 80794-7) Abnormal [facility] PasoMagnesium2024-05-09 14:03:47* Test Item Value Reference Range Interpretation Comme nts MAGNESIUM (test code = 7088891638) 2.3 mg/dL 1.7-2.4 Lab Interpretation (test cod e = 36457-3) Normal [facility] with Zfeo3554-84-59 13:57:47* Test Item Value Reference Range Interpretation Comme nts WBC (test code = 6690-2) 10.70 4.30-11.10 RBC (test code = 789-8) 4.47 3.93-5.25 HGB (test code = 718-7) 11.0 g/dL 11.6-15.0 L HCT (test code = 4544-3) 37.4 % 35.7-45.2 MCV (test code = 787-2) 83.7 fL 80.6-95.5 MCH (test code = 785-6) 24.6 pg 25.9-32.8 L MCHC (test code = 786-4) 29.4 g/dL 31.6-35.1 L RDW-SD (test code = 41043-0) 67.3 fL 39.0-49.9 H RDW-CV (test code = 788-0) 22.5 % 12.0-15.5 H PLT (test code = 777-3) 285 166-358 MPV (test code = 39044-7) 9.2 fL 9.5-12.9 L NRBC/100 WBC (test code = 7299352532) 0.3 0.0-10.0 NRBC x10^3 (test code = 0688029381) 0.03 See_Comment [Automated messa ge] The system which generated this result transmitted reference range: 10*3/?L. The reference range was not used to interpret this result as normal/abnormal. GRAN MAT (NEUT) % (test code = 770-8) 70.5 % IMM GRAN % (test code = 8267247986) 0.80 % LYMPH % (test code = 736-9) 21.7 % MONO % (test code = 5905-5) 6.4 % EOS % (test code = 713-8) 0.5 % BASO % (test code = 706-2) 0.1 % GRAN MAT x10^3(ANC) (test code = 2388489056) 7.54 10*3/uL 1.88-7.09 H IMM GRAN x10^3 (test code = 6127835555) 0.09 10*3/uL 0.00-0.06 H LYMPH x10^3 (test code = 731-0) 2.32 10*3/uL 1.32-3.29 MONO x10^3 (test code = 742-7) 0.69 10*3/uL 0.33-0.92 EOS x10^3 (test code = 711-2) 0.05 10*3/uL 0.03-0.39 BASO x10^3 (test code = 704-7) 0.01-0.07 Lab Interpretation (test code = 08261-7) Abnormal [facility] Whole Bveho9583-86-69 10:06:23* Test Item Value Reference Range Interpretation Comme nts LACTIC ACID (test code = 5193961617) 2.41 mmol/L 0.50-2.20 H Lab Interpretation (test cod e = 78517-9) Abnormal [facility] GLU[facility]SE (AUTOMATED)2023-11-26 02:14:06* Test Item Value Reference Range Interpretation Comme nts POCT GLU (test code = 8859929399) 288 mg/dL 70-110 H Lab Interpretation (test cod e = 99942-8) Abnormal [facility] PasoLactic Acid Whole Kkxtf8316-33-49 00:56:52* Test Item Value Reference Range Interpretation Comme nts LACTIC ACID (test code = 5802471741) 2.93 mmol/L 0.50-2.20 H Lab Interpretation (test cod e = 67038-7) Abnormal [facility] Paso[facility]roencephalogram (EEG) - Duration of test: Continuous EEG Monitoring (LTM); Release to patient:Dfmfquqyq6880-09-12 00:00:00 * Test Item Value Reference Range Interpretation Comme nts LYNDSAY (test code = LYNDSAY) LONG-TERM EEG MONITORING #1: 11/26/2023, 15:40 - 16: 31 Name: Heather TurnerN: [id number]'s Age:53 year oldSex: female History from chart review: This is a 53 year old female with a PMH significant for HFrEF (~35% 05/2023), HTN, Smoker, COPD (on intermittent home O2), chronic low back pain, seizure disorder, C3-C4 ACDF and L3-L4 laminectomies (06/01/23) c/b chronic low back pain 2/2 lumbar spinal stenosis, and depression presenting from [facility] ED due to SOB. Level of Consciousness: ?Awake and Drowsy Reason for EEG: History of seizures Current Antiseizure Medications: ? ?divalproex ER (DEPAKOTE ER) 24 hr tablet 1,250 mg, 1,250 mg, Oral, Q12H TECHNICAL INFORMATION: ?The [facility]ruger electroencephalogram was simultaneously recorded with the video. An electrodiagnostic technologist placed scalp electrodes according to the [employer] 10-20 System with at least 21 recording electrodes. In addition, ocular leads and a single-channel EKG were recorded. Both bipolar and referential montages were used. Activation Procedures included: None EEG DESCRIPTION: BACKGROUND ACTIVITY:The EEG background activity shows a posterior dominant rhythm of 6 to 7 Hz in frequency and medium amplitude, which is reactive and attenuated by eye-opening. ?During drowsiness, the EEG shows diffuse and symmetric slow waves. No phase 2 sleep was recorded. FOCAL SLOWING: NoneINTERICTAL EPILEPTIFORM ACTIVITY: NoneRHYTHMIC AND PERIODIC PATTERNS: NoneELECTROGRAPHIC OR ELECTROCLINICAL SEIZURES: NoneEVENTS: None EKG: Single-channel EEG shows normal rhythm. CLASSIFICATION: Abnormality Significant 1 (Awake, Drowsy)1-Mild diffuse slowing of the EEG background rhythms. IMPRESSION: This EEG is abnormal because of: 1-Mild diffuse slowing of the EEG background ?rhythms, suggesting a mild global cerebral dysfunction of any etiology, including to toxic, metabolic, infectious, or anoxic encephalopathy, post-ictal state, neurodegenerative disorders, or sedating medications No epileptiform discharges or seizures were seen during this segment. Laura Ramirez MD, PhD, FAESData: 11/26/2023 INTERMEDIATE EEG MONITORING SEGMENT #2: 11/26/23, 16:31:09-19:29:41 In the early portion of this segment, the test is temporarily disconnected for approximately 20 minutes. This segment is abnormal due to:1) mild diffuse slowing, which can be suggestive of a mild diffuse disturbance in cerebral function but can also be related to sedating medications.2) tachycardia. No electrographic seizures or epileptiform abnormalities are seen. I discussed these findings with the neurology team following this patient immediately after I read this segment. Interpreted by Dewey Neal MD on 11/26/23 -----SAUSAGE CUTTER EEG MONITORING SEGMENT #3: 11/26/23, 19:29:41 to 11/27/23 06:30:06 This segment is abnormal due to:1) mild diffuse slowing, which can be suggestive of a mild diffuse disturbance in cerebral function but can also be related to sedating medications.2) tachycardia. No electrographic seizures or epileptiform abnormalities are seen. I discussed these findings with the neurology team following this patient immediately after I read this segment. Interpreted by Coby Hmumel MD on 11/27/23 LONG TERM EEG MONITORING SEGMENT #4: 11/27/23 06:30:06 to 11:04:33 This segment is abnormal due to:1) mild diffuse slowing, which can be suggestive of a mild diffuse disturbance in cerebral function but can also be related to sedating medications.2) tachycardia. No electrographic seizures or epileptiform abnormalities are seen. I discussed these findings with the neurology team following this patient immediately after I read this segment. Interpreted by Coby Hummel MD on 11/27/23 Lab Interpretation (test code = 74435-8) Abnormal [facility]. Metabolic Panel (89571)2023-11-25 21:24:39* Test Item Value Reference Range Interpretation Comme nts NA (test code = 9623579114) 134 mmol/L 135-145 L K (test code = 8497274616) 4.3 mmol/L 3.5-5.0 CL (test code = 2146424642) 89 mmol/L 98-108 L CO2 TOTAL (test code = 7731398288) 37 mmol/L 23-31 H AGAP (test code = 1398701687) 8 2-16 BUN (test code = 4831735351) 24 mg/dL 7-23 H GLUCOSE (test code = 3721397590) 177 mg/dL 70-110 H CREATININE (test code = 2160-0) 0.69 mg/dL 0.50-1.04 TOTAL BILI (test code = 9706334936) 0.9 mg/dL 0.1-1.1 CALCIUM (test code = 8576791665) 8.6 mg/dL 8.6-10.6 T PROTEIN (test code = 7682954324) 7.3 g/dL 6.3-8.2 ALBUMIN (test code = 3130862399) 4.1 g/dL 3.5-5.0 ALK PHOS (test code = 0295676942) 263 U/L 34-122 H ALTv (test code = 1742-6) 116 U/L 5-35 H AST(SGOT) (test code = 1476208245) 36 U/L 13-40 eGFR (test code = 45037-7) 105.2 mL/min/1.73m2 CKD-EPI eGFR (2020). Assuming creatinine has been stable day-to-day for at least three months, the eGFR indicates Category G1 (>= 90 mL/min/1.73 m2) Lab Interpretation (test code = 06392-4) Abnormal [facility] Paso[facility]esium2024-05-08 21:24:39* Test Item Value Reference Range Interpretation Comme nts MAGNESIUM (test code = 2716341830) 2.1 mg/dL 1.7-2.4 Lab Interpretation (test cod e = 25672-7) Normal [facility] hospitalic Acid Whole Crysg9080-00-48 21:10:26* Test Item Value Reference Range Interpretation Comme nts LACTIC ACID (test code = 0406532954) 4.07 mmol/L 0.50-2.20 H Lab Interpretation (test cod e = 90773-4) Abnormal [facility] GLUCOSE (AUTOMATED)2023-11-25 21:01:04* Test Item Value Reference Range Interpretation Comme nts POCT GLU (test code = 7882022322) 173 mg/dL 70-110 H Lab Interpretation (test cod e = 30940-8) Abnormal [facility] GLUCOSE (AUTOMATED)2023-11-25 16:59:00* Test Item Value Reference Range Interpretation Comme nts POCT GLU (test code = 2076156736) 220 mg/dL 70-110 H Lab Interpretation (test cod e = 65379-5) Abnormal [facility] GLUCOSE (AUTOMATED)2023-11-25 13:06:20* Test Item Value Reference Range Interpretation Comme nts POCT GLU (test code = 4838358874) 92 mg/dL 70-110 Lab Interpretation (test cod e = 01349-9) Normal [facility] acute hospitalic Acid Whole Ozlbo0658-80-45 09:28:51* Test Item Value Reference Range Interpretation Comme nts LACTIC ACID (test code = 3076486396) 1.66 mmol/L 0.50-2.20 Lab Interpretation (test cod e = 40216-8) Normal [facility] acute hospitalic Acid Whole Ivcqr4974-47-84 04:58:57* Test Item Value Reference Range Interpretation Comme nts LACTIC ACID (test code = 3631268936) 2.00 mmol/L 0.50-2.20 Lab Interpretation (test cod e = 64171-0) Normal [facility] GLUCOSE (AUTOMATED)2023-11-25 03:05:13* Test Item Value Reference Range Interpretation Comme nts POCT GLU (test code = 9776099886) 189 mg/dL 70-110 H Lab Interpretation (test cod e = 81325-5) Abnormal [facility] ABDOMEN PELVIS W UBSUVEZT8435-27-99 00:18:09CT ABDOMEN PELVIS W CONTRAST 11/24/2023 5:07 PM HISTORY: lactic acidosis COMPARISON: CT abdomen pelvis 02/19/2021. TECHNIQUE: Axial images of the abdomen and pelvis were acquired afteradministration of intravenous contrast. Coronal and sagittalreconstructions were also created. FINDINGS: LOWER CHEST: Bilateral lower lobe dependent atelectasis and fibrotic bandsare noted. 1 cm right lower lobe air cyst is again noted. HEPATOBILIARY: The liver is normal in size. No focal hepatic lesion.The gallbladder is surgically absent.No biliary ductal dilatation. SPLEEN: Normal in size. ?No lesion. PANCREAS: The parenchyma is unremarkable. No ductal dilatation. No masses. ADRENAL GLANDS: 2.3 and 2 subcentimeter left adrenal adenomas are stable.. KIDNEYS: No hydronephrosis. There is a 2 mm right lower pole nonobstructingrenal stone. A couple of parenchyma hypodensities, too small tocharacterize and probably represent cysts. No solid mass. GI TRACT: The stomach is markedly distended with ingested material. Nodistal obstructing mass is evident. There is no bowel wall edema. ?Fewcolonic diverticula are present. The appendix is normal. PERITONEUM AND RETROPERITONEUM: No free air or free fluid. LYMPH NODES: No lymphadenopathy is seen. PELVIS/BLADDER: The urinary bladder is normal. The reproductive organs arewithin normal limits. VESSELS: Age advanced moderate mixed atherosclerotic disease of aorta andiliac branches. No aneurysm or critical stenosis. BONES AND SOFT TISSUES: Degenerative disc and facet arthropathy involvingL3-L5 with disc space height loss, vacuum phenomena, endplate sclerosis o,and osteophytosis. Bilateral breast skin and lateral abdominal, pelvic and upper thigh skinthickening and subcutaneous edema.[facility] PasoLasc[facility] Acid Whole Yrwxy9915-95-95 21:31:49* Test Item Value Reference Range Interpretation Comme [facility] LACTIC ACID (test code = 4733987135) 4.54 mmol/L 0.50-2.20 H Lab Interpretation (test cod e = 72529-6) Abnormal [facility] GLUCOSE (AUTOMATED)2023-11-24 21:31:39* Test Item Value Reference Range Interpretation Comme [facility] POCT GLU (test code = 5463059934) 198 mg/dL 70-110 H Lab Interpretation (test cod e = 00998-8) Abnormal [facility] GLUCOSE (AUTOMATED)2023-11-24 17:53:57* Test Item Value Reference Range Interpretation Comme nts POCT GLU (test code = 5317335568) 226 mg/dL 70-110 H Lab Interpretation (test cod e = 20460-7) Abnormal [facility] GLUCOSE (AUTOMATED)2023-11-24 17:53:57* Test Item Value Reference Range Interpretation Comme nts POCT GLU (test code = 8370938316) 226 mg/dL 70-110 H Lab Interpretation (test cod e = 62268-7) Abnormal [facility] GLUCOSE (AUTOMATED)2023-11-24 17:53:57* Test Item Value Reference Range Interpretation Comme nts POCT GLU (test code = 9727305639) 226 mg/dL 70-110 H Lab Interpretation (test cod e = 01829-8) Abnormal [facility] PasoLactic Acid Whole Dyjvh1721-87-69 15:48:27* Test Item Value Reference Range Interpretation Comme nts LACTIC ACID (test code = 9672728453) 4.43 mmol/L 0.50-2.20 H Lab Interpretation (test cod e = 33826-1) Abnormal [facility] PasoLactic Acid Whole Uoodm9408-67-64 15:48:27* Test Item Value Reference Range Interpretation Comme nts LACTIC ACID (test code = 8752855803) 4.43 mmol/L 0.50-2.20 H Lab Interpretation (test cod e = 36940-4) Abnormal [facility] PasoLactic Acid Whole Nytbe1569-08-72 15:48:27* Test Item Value Reference Range Interpretation Comme nts LACTIC ACID (test code = 6384721038) 4.43 mmol/L 0.50-2.20 H Lab Interpretation (test cod e = 48295-6) Abnormal [facility] PasoCardiovascular Awsgnxiydwzcdze8305-29-67 14:28:29? ?RHC/Coronary Angiography Date of Service: 11/23/2023 ?3:18 PM Indication/Diagnosis: heart failure Consent source: self Consent type: indications/complications discussed with patient/legal guardian; written consent obtained Time out completed: yes Aseptic technique: Chlorprep Local Anesthesia: 1% lidocaine without epinephrine Sedation: fentanyl 50 mcg, Versed 2 mg Access site: right radial artery, RIJ [facility] 4.0 5fr8 Fr IJ sheathSwan Rosalba ? Closure Method: TR Band, manual pressure Sterile dressing: yes Complications: none Findings: Coronary dominance: right Left main: Short, patent LAD: Px patent, mid mild irregularities, distal reaches the apex ?D1: Small ? D2: Small ? D3: ?Small to medium sized patent LCX: Px patent, mid tortuous mild disease, continues assmall AV groove artery ?OM1: High OM, large patent with mid 30% ?OM2: Large, tortuous, no significant disease ?OM3: Small to medium patent RCA: Dominant. Px patentwith mild ectasia, followed by calcified 30 % before marginal take off, mid mild disease, ?PDA: Patent ?PLB: patent Right heart cath Pressure/mmhgRA 15RV 49/17(18)PA 50/30(39)Pw 20 Saturation (%)RA 57%PA 59%AO 93% Cardiac output(L/min)Yovanny 6.68Thermal 5.46 Cardiac index(L/min/m2)Yovanny 3.4Thermal 2.78 PVR 3.4 WoodsSVR 1265 Dynes Impression:Severely elevated right sided pressuresElevated left sided pressures Moderate pulm htn, mixed component Non obstructive coronary arterydisease Plan:Plan discussed with primary team Dr. Tracy MD ?Faculty, was present for the entire procedure. QUYEN Ventura Post-Procedure Sedation AddendumImmediately prior to start of sedation, the patient was evaluated and there was no change from the pre-procedure evaluation. I was present and directed medical care.The patient underwent moderate sedation ?for the procedure. The medications administered were recorded in the MAR; oxygenation, ventilation and circulation were monitoredcontinuously and were recorded in the EMR. I evaluated the patient after the procedure.The patient was evaluated immediately as recovering from sedation. Complications: None I agree with Dr. Woo's note as written.I was present supervised the fellows throughout the procedure.Findings discussed with the primary team (Dr. Altamirano). Coronary angiography/RHC revealing:- Patent coronary arteries withnon obstructive disease. Heavily calcified proximal, mid and distal RCA could harbor a stent, that (if present) is seemingly patent with no significant ISR.- Severely elevated right sided filling pressure, moderate pulmonary hypertension (mixed component), elevated LV filling pressure (no LVEDP obtained due to presence of LV thrombus). Normal cardiac output. Low normal cardiac index (at a heart rate of ~ 120 bpm). - - - - ?Picture suggestive of right sided failure. Nataliia Ivy professor.[facility] GLU[facility]SE (AUTOMATED)2023-11-24 12:34:31* Test Item Value Reference Range Interpretation Comme nts POCT GLU (test code = 8769602881) 114 mg/dL 70-110 H Lab Interpretation (test cod e = 46308-9) Abnormal [facility] GLUCOSE (AUTOMATED)2023-11-24 12:34:31* Test Item Value Reference Range Interpretation Comme nts POCT GLU (test code = 9787193880) 114 mg/dL 70-110 H Lab Interpretation (test cod e = 47868-2) Abnormal [facility] GLUCOSE (AUTOMATED)2023-11-24 12:34:31* Test Item Value Reference Range Interpretation Comme nts POCT GLU (test code = 5267230541) 114 mg/dL 70-110 H Lab Interpretation (test cod e = 10854-5) [facility]normal [facility] Paso[facility]esium2024-05-07 11:10:57* Test Item Value Reference Range Interpretation Comme nts MAGNESIUM (test code = 4333523332) 2.2 mg/dL 1.7-2.4 Lab Interpretation (test cod e = 59478-6) Normal [facility]. Metabolic Panel (61176)2023-11-24 11:10:57* Test Item Value Reference Range Interpretation Comme nts NA (test code = 6925902858) 141 mmol/L 135-145 K (test code = 5655627894) 4.1 mmol/L 3.5-5.0 CL (test code = 1286406240) 97 mmol/L 98-108 L CO2 TOTAL (test code = 8514244630) 36 mmol/L 23-31 H AGAP (test code = 8344961162) 8 2-16 BUN (test code = 6284082936) 20 mg/dL 7-23 GLUCOSE (test code = 1610487793) 125 mg/dL 70-110 H CREATININE (test code = 2160-0) 0.66 mg/dL 0.50-1.04 TOTAL BILI (test code = 8843473804) 0.7 mg/dL 0.1-1.1 CALCIUM (test code = 5855868643) 8.4 mg/dL 8.6-10.6 L T PROTEIN (test code = 0374564340) 6.5 g/dL 6.3-8.2 ALBUMIN (test code = 8286915237) 3.7 g/dL 3.5-5.0 ALK PHOS (test code = 8889881434) 266 U/L 34-122 H ALTv (test code = 1742-6) 149 U/L 5-35 H AST(SGOT) (test code = 7292229558) 35 U/L 13-40 eGFR (test code = 82885-2) 106.4 mL/min/1.73m2 CKD-EPI eGFR (2020). Assuming creatinine has been stable day-to-day for at least three months, the eGFR indicates Category G1 (>= 90 mL/min/1.73 m2) Lab Interpretation (test code = 67163-5) [facility]:10:57* Test Item Value Reference Range Interpretation Comme nts MAGNESIUM (test code = 8387187093) 2.2 mg/dL 1.7-2.4 Lab Interpretation (test cod e = 95609-0) [facility] (87418)2023-11-24 11:10:57* Test Item Value Reference Range Interpretation Comme nts NA (test code = 3859263847) 141 mmol/L 135-145 K (test code = 1492568902) 4.1 mmol/L 3.5-5.0 CL (test code = 6603157484) 97 mmol/L 98-108 L CO2 TOTAL (test code = 7072452745) 36 mmol/L 23-31 H AGAP (test code = 7700988056) 8 2-16 BUN (test code = 4249768189) 20 mg/dL 7-23 GLUCOSE (test code = 1165590019) 125 mg/dL 70-110 H CREATININE (test code = 2160-0) 0.66 mg/dL 0.50-1.04 TOTAL BILI (test code = 8874731632) 0.7 mg/dL 0.1-1.1 CALCIUM (test code = 6371247370) 8.4 mg/dL 8.6-10.6 L T PROTEIN (test code = 9159834561) 6.5 g/dL 6.3-8.2 ALBUMIN (test code = 4985847955) 3.7 g/dL 3.5-5.0 ALK PHOS (test code = 4485734492) 266 U/L 34-122 H ALTv (test code = 1742-6) 149 U/L 5-35 H AST(SGOT) (test code = 4621469402) 35 U/L 13-40 eGFR (test code = 70035-6) 106.4 mL/min/1.73m2 CKD-EPI eGFR (2020). Assuming creatinine has been stable day-to-day for at least three months, the eGFR indicates Category G1 (>= 90 mL/min/1.73 m2) Lab Interpretation (test code = 51528-2) [facility] 11:10:57* Test Item Value Reference Range Interpretation Comme nts MAGNESIUM (test code = 1050302805) 2.2 mg/dL 1.7-2.4 Lab Interpretation (test cod e = 12131-8) [facility] (95985)2023-11-24 11:10:57* Test Item Value Reference Range Interpretation Comme nts NA (test code = 8017299462) 141 mmol/L 135-145 K (test code = 1759090507) 4.1 mmol/L 3.5-5.0 CL (test code = 4732391789) 97 mmol/L 98-108 L CO2 TOTAL (test code = 8963673226) 36 mmol/L 23-31 H AGAP (test code = 0071932236) 8 2-16 BUN (test code = 4827516032) 20 mg/dL 7-23 GLUCOSE (test code = 9652651894) 125 mg/dL 70-110 H CREATININE (test code = 2160-0) 0.66 mg/dL 0.50-1.04 TOTAL BILI (test code = 2006839658) 0.7 mg/dL 0.1-1.1 CALCIUM (test code = 4917761086) 8.4 mg/dL 8.6-10.6 L T PROTEIN (test code = 2130529145) 6.5 g/dL 6.3-8.2 ALBUMIN (test code = 7870010395) 3.7 g/dL 3.5-5.0 ALK PHOS (test code = 7408183118) 266 U/L 34-122 H ALTv (test code = 1742-6) 149 U/L 5-35 H AST(SGOT) (test code = 5547939181) 35 U/L 13-40 eGFR (test code = 43080-5) 106.4 mL/min/1.73m2 CKD-EPI eGFR (2020). Assuming creatinine has been stable day-to-day for at least three months, the eGFR indicates Category G1 (>= 90 mL/min/1.73 m2) Lab Interpretation (test code = 52898-7) [facility]normal [facility] with 3 Hour Ceccvk4695-21-38 11:07:59* Test Item Value Reference Range Interpretation Comme nts LACTIC ACID (test code = 8969074735) 3.41 mmol/L 0.50-2.20 H Lab Interpretation (test cod e = 19527-3) [facility] Znchjm0618-96-88 11:07:59* Test Item Value Reference Range Interpretation Comme nts LACTIC ACID (test code = 5672916693) 3.41 mmol/L 0.50-2.20 H Lab Interpretation (test cod e = 92373-8) [facility] Kgszsr9977-80-67 11:07:59* Test Item Value Reference Range Interpretation Comme nts LACTIC ACID (test code = 9385359455) 3.41 mmol/L 0.50-2.20 H Lab Interpretation (test cod e = 44983-1) Abnormal [facility] with Yair4869-94-96 10:28:34* Test Item Value Reference Range Interpretation Comme nts WBC (test code = 6690-2) 9.47 4.30-11.10 RBC (test code = 789-8) 3.66 3.93-5.25 L HGB (test code = 718-7) 9.1 g/dL 11.6-15.0 L HCT (test code = 4544-3) 31.0 % 35.7-45.2 L MCV (test code = 787-2) 84.7 fL 80.6-95.5 MCH (test code = 785-6) 24.9 pg 25.9-32.8 L MCHC (test code = 786-4) 29.4 g/dL 31.6-35.1 L RDW-SD (test code = 09713-3) 67.5 fL 39.0-49.9 H RDW-CV (test code = 788-0) 22.5 % 12.0-15.5 H PLT (test code = 777-3) 245 166-358 MPV (test code = 19046-8) 9.5 fL 9.5-12.9 NRBC/100 WBC (test code = 1847372632) 1.2 0.0-10.0 NRBC x10^3 (test code = 1966339132) 0.11 See_Comment [Automated messa ge] The system which generated this result transmitted reference range: 10*3/?L. The reference range was not used to interpret this result as normal/abnormal. GRAN MAT (NEUT) % (test code = 770-8) 84.8 % IMM GRAN % (test code = 6164681933) 0.80 % LYMPH % (test code = 736-9) 7.3 % MONO % (test code = 5905-5) 7.0 % EOS % (test code = 713-8) 0.0 % BASO % (test code = 706-2) 0.1 % GRAN MAT x10^3(ANC) (test code = 1149687535) 8.03 10*3/uL 1.88-7.09 H IMM GRAN x10^3 (test code = 7901869292) 0.08 10*3/uL 0.00-0.06 H LYMPH x10^3 (test code = 731-0) 0.69 10*3/uL 1.32-3.29 L MONO x10^3 (test code = 742-7) 0.66 10*3/uL 0.33-0.92 EOS x10^3 (test code = 711-2) 0.03-0.39 L BASO x10^3 (test code = 704-7) 0.01-0.07 Lab Interpretation (test code = 32441-9) Abnormal [facility] with Jhje1614-89-36 10:28:34* Test Item Value Reference Range Interpretation Comme nts WBC (test code = 6690-2) 9.47 4.30-11.10 RBC (test code = 789-8) 3.66 3.93-5.25 L HGB (test code = 718-7) 9.1 g/dL 11.6-15.0 L HCT (test code = 4544-3) 31.0 % 35.7-45.2 L MCV (test code = 787-2) 84.7 fL 80.6-95.5 MCH (test code = 785-6) 24.9 pg 25.9-32.8 L MCHC (test code = 786-4) 29.4 g/dL 31.6-35.1 L RDW-SD (test code = 01423-0) 67.5 fL 39.0-49.9 H RDW-CV (test code = 788-0) 22.5 % 12.0-15.5 H PLT (test code = 777-3) 245 166-358 MPV (test code = 89027-1) 9.5 fL 9.5-12.9 NRBC/100 WBC (test code = 3852752626) 1.2 0.0-10.0 NRBC x10^3 (test code = 1564568856) 0.11 See_Comment [Automated messa ge] The system which generated this result transmitted reference range: 10*3/?L. The reference range was not used to interpret this result as normal/abnormal. GRAN MAT (NEUT) % (test code = 770-8) 84.8 % IMM GRAN % (test code = 2075553702) 0.80 % LYMPH % (test code = 736-9) 7.3 % MONO % (test code = 5905-5) 7.0 % EOS % (test code = 713-8) 0.0 % BASO % (test code = 706-2) 0.1 % GRAN MAT x10^3(ANC) (test code = 4092181309) 8.03 10*3/uL 1.88-7.09 H IMM GRAN x10^3 (test code = 9383021844) 0.08 10*3/uL 0.00-0.06 H LYMPH x10^3 (test code = 731-0) 0.69 10*3/uL 1.32-3.29 L MONO x10^3 (test code = 742-7) 0.66 10*3/uL 0.33-0.92 EOS x10^3 (test code = 711-2) 0.03-0.39 L BASO x10^3 (test code = 704-7) 0.01-0.07 Lab Interpretation (test code = 52976-9) [facility] Qdtq4162-25-04 10:28:34* Test Item Value Reference Range Interpretation Comme nts WBC (test code = 6690-2) 9.47 4.30-11.10 RBC (test code = 789-8) 3.66 3.93-5.25 L HGB (test code = 718-7) 9.1 g/dL 11.6-15.0 L HCT (test code = 4544-3) 31.0 % 35.7-45.2 L MCV (test code = 787-2) 84.7 fL 80.6-95.5 MCH (test code = 785-6) 24.9 pg 25.9-32.8 L MCHC (test code = 786-4) 29.4 g/dL 31.6-35.1 L RDW-SD (test code = 13829-8) 67.5 fL 39.0-49.9 H RDW-CV (test code = 788-0) 22.5 % 12.0-15.5 H PLT (test code = 777-3) 245 166-358 MPV (test code = 17969-3) 9.5 fL 9.5-12.9 NRBC/100 WBC (test code = 6326201122) 1.2 0.0-10.0 NRBC x10^3 (test code = 6810563039) 0.11 See_Comment [Automated messa ge] The system which generated this result transmitted reference range: 10*3/?L. The reference range was not used to interpret this result as normal/abnormal. GRAN MAT (NEUT) % (test code = 770-8) 84.8 % IMM GRAN % (test code = 4948672159) 0.80 % LYMPH % (test code = 736-9) 7.3 % MONO % (test code = 5905-5) 7.0 % EOS % (test code = 713-8) 0.0 % BASO % (test code = 706-2) 0.1 % GRAN MAT x10^3(ANC) (test code = 0626778886) 8.03 10*3/uL 1.88-7.09 H IMM GRAN x10^3 (test code = 1832970860) 0.08 10*3/uL 0.00-0.06 H LYMPH x10^3 (test code = 731-0) 0.69 10*3/uL 1.32-3.29 L MONO x10^3 (test code = 742-7) 0.66 10*3/uL 0.33-0.92 EOS x10^3 (test code = 711-2) 0.03-0.39 L BASO x10^3 (test code = 704-7) 0.01-0.07 Lab Interpretation (test code = 00191-2) Abnormal [facility] (for use with Heparin Infusion)2023-11-24 06:40:52* Test Item Value Reference Range Interpretation Comme nts APTT Patient (test code = 3173-2) Lab Interpretation (test cod e = 80134-5) Normal [facility] (for use with Heparin Infusion)2023-11-24 06:40:52* Test Item Value Reference Range Interpretation Comme nts APTT Patient (test code = 3173-2) Lab Interpretation (test cod e = 14470-4) Normal [facility] (for use with Heparin Infusion)2023-11-24 06:40:52* Test Item Value Reference Range Interpretation Comme nts APTT Patient (test code = 3173-2) 26 26-36 Lab Interpretation (test cod e = 32933-7) Normal [facility] GLUCOSE (AUTOMATED)2023-11-24 03:18:58* Test Item Value Reference Range Interpretation Comme nts POCT GLU (test code = 2136924634) 263 mg/dL 70-110 H Lab Interpretation (test cod e = 72929-1) Abnormal [facility] GLUCOSE (AUTOMATED)2023-11-24 03:18:58* Test Item Value Reference Range Interpretation Comme nts POCT GLU (test code = 5092329288) 263 mg/dL 70-110 H Lab Interpretation (test cod e = 20619-5) Abnormal [facility] GLUCOSE (AUTOMATED)2023-11-24 03:18:58* Test Item Value Reference Range Interpretation Comme nts POCT GLU (test code = 6057113037) 263 mg/dL 70-110 H Lab Interpretation (test cod e = 69793-3) Abnormal [facility] GLUCOSE (AUTOMATED)2023-11-23 21:29:57* Test Item Value Reference Range Interpretation Comme nts POCT GLU (test code = 6096947369) 137 mg/dL 70-110 H Lab Interpretation (test cod e = 51106-2) Abnormal [facility] GLUCOSE (AUTOMATED)2023-11-23 21:29:57* Test Item Value Reference Range Interpretation Comme nts POCT GLU (test code = 9513895720) 137 mg/dL 70-110 H Lab Interpretation (test cod e = 73695-7) Abnormal [facility] GLUCOSE (AUTOMATED)2023-11-23 21:29:57* Test Item Value Reference Range Interpretation Comme nts POCT GLU (test code = 9620839246) 137 mg/dL 70-110 H Lab Interpretation (test cod e = 86111-4) [facility] ([facility] (ALB,T.PRO,BILI T,BU/BC,ALT,AST,ALK PHOS)2023-11-23 17:45:02* Test Item Value Reference Range Interpretation Comme nts TOTAL BILI (test code = 2090641750) 0.7 mg/dL 0.1-1.1 BILI UNCON (test code = 2983589553) 0.1 mg/dL 0.1-1.1 BILI CONJ (test code = 6895237853) 0.0 mg/dL 0.0-0.3 T PROTEIN (test code = 3633438525) 6.2 g/dL 6.3-8.2 L ALBUMIN (test code = 3275771671) 3.5 g/dL 3.5-5.0 ALK PHOS (test code = 5769466289) 274 U/L 34-122 H ALTv (test code = 1742-6) 176 U/L 5-35 H AST(SGOT) (test code = 7288934971) 40 U/L 13-40 Lab Interpretation (test cod e = 02999-1) [facility] (39134[facility] (ALB,T.PRO,BILI T,BU/BC,ALT,AST,ALK PHOS)2023-11-23 17:45:02* Test Item Value Reference Range Interpretation Comme nts TOTAL BILI (test code = 2515861937) 0.7 mg/dL 0.1-1.1 BILI UNCON (test code = 6595866433) 0.1 mg/dL 0.1-1.1 BILI CONJ (test code = 7647304529) 0.0 mg/dL 0.0-0.3 T PROTEIN (test code = 5869185555) 6.2 g/dL 6.3-8.2 L ALBUMIN (test code = 8485880314) 3.5 g/dL 3.5-5.0 ALK PHOS (test code = 7534862991) 274 U/L 34-122 H ALTv (test code = 1742-6) 176 U/L 5-35 H AST(SGOT) (test code = 0457507427) 40 U/L 13-40 Lab Interpretation (test cod e = 80624-2) [facility] (43887[facility] (ALB,T.PRO,BILI T,BU/BC,ALT,AST,ALK PHOS)2023-11-23 17:45:02* Test Item Value Reference Range Interpretation Comme nts TOTAL BILI (test code = 6582430197) 0.7 mg/dL 0.1-1.1 BILI UNCON (test code = 6677666645) 0.1 mg/dL 0.1-1.1 BILI CONJ (test code = 7149492062) 0.0 mg/dL 0.0-0.3 T PROTEIN (test code = 3432498659) 6.2 g/dL 6.3-8.2 L ALBUMIN (test code = 4295869085) 3.5 g/dL 3.5-5.0 ALK PHOS (test code = 3665334113) 274 U/L 34-122 H ALTv (test code = 1742-6) 176 U/L 5-35 H AST(SGOT) (test code = 5653272455) 40 U/L 13-40 Lab Interpretation (test cod e = 11450-1) Abnormal [facility] GLUCOSE (AUTOMATED)2023-11-23 17:19:25* Test Item Value Reference Range Interpretation Comme nts POCT GLU (test code = 6878744515) 137 mg/dL 70-110 H Lab Interpretation (test cod e = 39160-4) Abnormal [facility] GLUCOSE (AUTOMATED)2023-11-23 17:19:25* Test Item Value Reference Range Interpretation Comme nts POCT GLU (test code = 3776561647) 137 mg/dL 70-110 H Lab Interpretation (test cod e = 88932-2) Abnormal [facility] GLUCOSE (AUTOMATED)2023-11-23 17:19:25* Test Item Value Reference Range Interpretation Comme nts POCT GLU (test code = 9900980203) 137 mg/dL 70-110 H Lab Interpretation (test cod e = 79382-4) Abnormal [facility] GLUCOSE (AUTOMATED)2023-11-23 16:51:25* Test Item Value Reference Range Interpretation Comme nts POCT GLU (test code = 6570784794) 145 mg/dL 70-110 H Lab Interpretation (test cod e = 59777-2) Abnormal [facility] GLUCOSE (AUTOMATED)2023-11-23 16:51:25* Test Item Value Reference Range Interpretation Comme nts POCT GLU (test code = 5613150419) 145 mg/dL 70-110 H Lab Interpretation (test cod e = 65640-8) Abnormal [facility] GLUCOSE (AUTOMATED)2023-11-23 16:51:25* Test Item Value Reference Range Interpretation Comme nts POCT GLU (test code = 3462136156) 145 mg/dL 70-110 H Lab Interpretation (test cod e = 69348-2) [facility]2023-11-23 15:36:08* Test Item Value Reference Range Interpretation Comme nts APTT Patient (test code = 3173-2) 44 26-36 H Lab Interpretation (test cod e = 54324-4) [facility]23 15:36:08* Test Item Value Reference Range Interpretation Comme nts APTT Patient (test code = 3173-2) 44 26-36 H Lab Interpretation (test cod e = 32879-1) [facility]2023-11-23 15:36:08* Test Item Value Reference Range Interpretation Comme nts APTT Patient (test code = 3173-2) 44 26-36 H Lab Interpretation (test cod e = 77903-6) [facility] Whole Xoroe8279-70-57 15:21:35* Test Item Value Reference Range Interpretation Comme nts LACTIC ACID (test code = 8155852187) 4.80 mmol/L 0.50-2.20 H Lab Interpretation (test cod e = 75155-6) [facility] Whole Lpufu5520-30-80 15:21:35* Test Item Value Reference Range Interpretation Comme nts LACTIC ACID (test code = 2851810689) 4.80 mmol/L 0.50-2.20 H Lab Interpretation (test cod e = 47390-1) [facility]normal [facility] Whole Wuday6305-22-98 15:21:35* Test Item Value Reference Range Interpretation Comme nts LACTIC ACID (test code = 4971123188) 4.80 mmol/L 0.50-2.20 H Lab Interpretation (test cod e = 15988-3) Abnormal [facility] GLUCOSE (AUTOMATED)2023-11-23 12:49:15* Test Item Value Reference Range Interpretation Comme nts POCT GLU (test code = 7774438633) 162 mg/dL 70-110 H Lab Interpretation (test cod e = 49954-6) Abnormal [facility] GLUCOSE (AUTOMATED)2023-11-23 12:49:15* Test Item Value Reference Range Interpretation Comme nts POCT GLU (test code = 5982958524) 162 mg/dL 70-110 H Lab Interpretation (test cod e = 37407-8) Abnormal [facility] GLUCOSE (AUTOMATED)2023-11-23 12:49:15* Test Item Value Reference Range Interpretation Comme nts POCT GLU (test code = 4236385220) 162 mg/dL 70-110 H Lab Interpretation (test cod e = 59944-8) [facility] 08:44:42* Test Item Value Reference Range Interpretation Comme nts MAGNESIUM (test code = 1306566164) 1.9 mg/dL 1.7-2.4 Lab Interpretation (test cod e = 97562-0) Normal [facility] Metabolic Panel (NA, K, CL, CO2, GLUCOSE, BUN, CREATININE, CA)2023-11-23 08:44:42* Test Item Value Reference Range Interpretation Comme nts NA (test code = 5122410333) 136 mmol/L 135-145 K (test code = 0142330634) 3.7 mmol/L 3.5-5.0 CL (test code = 0484069316) 99 mmol/L 98-108 CO2 TOTAL (test code = 8032732364) 31 mmol/L 23-31 AGAP (test code = 7909100019) 6 2-16 BUN (test code = 7497021746) 20 mg/dL 7-23 GLUCOSE (test code = 1729453296) 184 mg/dL 70-110 H CREATININE (test code = 2160-0) 0.66 mg/dL 0.50-1.04 CALCIUM (test code = 9256105362) 7.9 mg/dL 8.6-10.6 L eGFR (test code = 83760-4) 106.4 mL/min/1.73m2 CKD-EPI eGFR (2020). Assuming creatinine has been stable day-to-day for at least three months, the eGFR indicates Category G1 (>= 90 mL/min/1.73 m2) Lab Interpretation (test code = 87720-3) Abnormal [facility]2024-05-06 08:44:42* Test Item Value Reference Range Interpretation Comme nts MAGNESIUM (test code = 6415385809) 1.9 mg/dL 1.7-2.4 Lab Interpretation (test cod e = 70779-0) Normal [facility] Metabolic Panel (NA, K, CL, CO2, GLUCOSE, BUN, CREATININE, CA)2023-11-23 08:44:42* Test Item Value Reference Range Interpretation Comme nts NA (test code = 9856467881) 136 mmol/L 135-145 K (test code = 7673081522) 3.7 mmol/L 3.5-5.0 CL (test code = 1854927727) 99 mmol/L 98-108 CO2 TOTAL (test code = 7347202311) 31 mmol/L 23-31 AGAP (test code = 9361631300) 6 2-16 BUN (test code = 9187017874) 20 mg/dL 7-23 GLUCOSE (test code = 4294111379) 184 mg/dL 70-110 H CREATININE (test code = 2160-0) 0.66 mg/dL 0.50-1.04 CALCIUM (test code = 8423293573) 7.9 mg/dL 8.6-10.6 L eGFR (test code = 07365-5) 106.4 mL/min/1.73m2 CKD-EPI eGFR (2020). Assuming creatinine has been stable day-to-day for at least three months, the eGFR indicates Category G1 (>= 90 mL/min/1.73 m2) Lab Interpretation (test code = 52960-3) Abnormal [facility]2024-05-06 08:44:42* Test Item Value Reference Range Interpretation Comme nts MAGNESIUM (test code = 2791820597) 1.9 mg/dL 1.7-2.4 Lab Interpretation (test cod e = 40785-9) Normal [facility] Metabolic Panel (NA, K, CL, CO2, GLUCOSE, BUN, CREATININE, CA)2023-11-23 08:44:42* Test Item Value Reference Range Interpretation Comme nts NA (test code = 4465179934) 136 mmol/L 135-145 K (test code = 1862867431) 3.7 mmol/L 3.5-5.0 CL (test code = 2000341443) 99 mmol/L 98-108 CO2 TOTAL (test code = 8002153044) 31 mmol/L 23-31 AGAP (test code = 6275115712) 6 2-16 BUN (test code = 5284165460) 20 mg/dL 7-23 GLUCOSE (test code = 7473794840) 184 mg/dL 70-110 H CREATININE (test code = 2160-0) 0.66 mg/dL 0.50-1.04 CALCIUM (test code = 6589775348) 7.9 mg/dL 8.6-10.6 L eGFR (test code = 16717-4) 106.4 mL/min/1.73m2 CKD-EPI eGFR (2020). Assuming creatinine has been stable day-to-day for at least three months, the eGFR indicates Category G1 (>= 90 mL/min/1.73 m2) Lab Interpretation (test code = 75532-0) [facility]23-[facility]-23 08:29:39* Test Item Value Reference Range Interpretation Comme nts APTT Patient (test code = 3173-2) 49 26-36 H Lab Interpretation (test cod e = 84764-7) [facility]2023-11-23 08:29:39* Test Item Value Reference Range Interpretation Comme nts APTT Patient (test code = 3173-2) 49 26-36 H Lab Interpretation (test cod e = 11318-8) [facility]2023-11-23 08:29:39* Test Item Value Reference Range Interpretation Comme nts APTT Patient (test code = 3173-2) 49 26-36 H Lab Interpretation (test cod e = 28859-0) [facility] Lott0933-93-32 08:24:03* Test Item Value Reference Range Interpretation Comme nts WBC (test code = 6690-2) 7.18 4.30-11.10 RBC (test code = 789-8) 3.21 3.93-5.25 L HGB (test code = 718-7) 8.0 g/dL 11.6-15.0 L HCT (test code = 4544-3) 26.7 % 35.7-45.2 L MCV (test code = 787-2) 83.2 fL 80.6-95.5 MCH (test code = 785-6) 24.9 pg 25.9-32.8 L MCHC (test code = 786-4) 30.0 g/dL 31.6-35.1 L RDW-SD (test code = 89679-3) 66.0 fL 39.0-49.9 H RDW-CV (test code = 788-0) 22.5 % 12.0-15.5 H PLT (test code = 777-3) 204 166-358 MPV (test code = 91635-7) 9.8 fL 9.5-12.9 NRBC/100 WBC (test code = 2541058092) 2.4 0.0-10.0 NRBC x10^3 (test code = 9634469248) 0.17 See_Comment [Automated messa ge] The system which generated this result transmitted reference range: 10*3/?L. The reference range was not used to interpret this result as normal/abnormal. GRAN MAT (NEUT) % (test code = 770-8) 80.3 % IMM GRAN % (test code = 5671182727) 1.70 % LYMPH % (test code = 736-9) 9.5 % MONO % (test code = 5905-5) 8.5 % EOS % (test code = 713-8) 0.0 % BASO % (test code = 706-2) 0.0 % GRAN MAT x10^3(ANC) (test code = 5428355969) 5.77 10*3/uL 1.88-7.09 IMM GRAN x10^3 (test code = 9569903539) 0.12 10*3/uL 0.00-0.06 H LYMPH x10^3 (test code = 731-0) 0.68 10*3/uL 1.32-3.29 L MONO x10^3 (test code = 742-7) 0.61 10*3/uL 0.33-0.92 EOS x10^3 (test code = 711-2) 0.03-0.39 L BASO x10^3 (test code = 704-7) 0.01-0.07 Lab Interpretation (test code = 79035-6) Abnormal [facility] with [id number] 08:24:03* Test Item Value Reference Range Interpretation Comme nts WBC (test code = 6690-2) 7.18 4.30-11.10 RBC (test code = 789-8) 3.21 3.93-5.25 L HGB (test code = 718-7) 8.0 g/dL 11.6-15.0 L HCT (test code = 4544-3) 26.7 % 35.7-45.2 L MCV (test code = 787-2) 83.2 fL 80.6-95.5 MCH (test code = 785-6) 24.9 pg 25.9-32.8 L MCHC (test code = 786-4) 30.0 g/dL 31.6-35.1 L RDW-SD (test code = 30337-1) 66.0 fL 39.0-49.9 H RDW-CV (test code = 788-0) 22.5 % 12.0-15.5 H PLT (test code = 777-3) 204 166-358 MPV (test code = 56679-1) 9.8 fL 9.5-12.9 NRBC/100 WBC (test code = 3533577794) 2.4 0.0-10.0 NRBC x10^3 (test code = 1215050731) 0.17 See_Comment [Automated messa ge] The system which generated this result transmitted reference range: 10*3/?L. The reference range was not used to interpret this result as normal/abnormal. GRAN MAT (NEUT) % (test code = 770-8) 80.3 % IMM GRAN % (test code = 0235700457) 1.70 % LYMPH % (test code = 736-9) 9.5 % MONO % (test code = 5905-5) 8.5 % EOS % (test code = 713-8) 0.0 % BASO % (test code = 706-2) 0.0 % GRAN MAT x10^3(ANC) (test code = 5202122911) 5.77 10*3/uL 1.88-7.09 IMM GRAN x10^3 (test code = 7008275302) 0.12 10*3/uL 0.00-0.06 H LYMPH x10^3 (test code = 731-0) 0.68 10*3/uL 1.32-3.29 L MONO x10^3 (test code = 742-7) 0.61 10*3/uL 0.33-0.92 EOS x10^3 (test code = 711-2) 0.03-0.39 L BASO x10^3 (test code = 704-7) 0.01-0.07 Lab Interpretation (test code = 56626-5) Abnormal [facility] with [id number] 08:24:03* Test Item Value Reference Range Interpretation Comme nts WBC (test code = 6690-2) 7.18 4.30-11.10 RBC (test code = 789-8) 3.21 3.93-5.25 L HGB (test code = 718-7) 8.0 g/dL 11.6-15.0 L HCT (test code = 4544-3) 26.7 % 35.7-45.2 L MCV (test code = 787-2) 83.2 fL 80.6-95.5 MCH (test code = 785-6) 24.9 pg 25.9-32.8 L MCHC (test code = 786-4) 30.0 g/dL 31.6-35.1 L RDW-SD (test code = 52204-8) 66.0 fL 39.0-49.9 H RDW-CV (test code = 788-0) 22.5 % 12.0-15.5 H PLT (test code = 777-3) 204 166-358 MPV (test code = 71231-9) 9.8 fL 9.5-12.9 NRBC/100 WBC (test code = 5537164586) 2.4 0.0-10.0 NRBC x10^3 (test code = 9721443635) 0.17 See_Comment [Automated messa ge] The system which generated this result transmitted reference range: 10*3/?L. The reference range was not used to interpret this result as normal/abnormal. GRAN MAT (NEUT) % (test code = 770-8) 80.3 % IMM GRAN % (test code = 1197333745) 1.70 % LYMPH % (test code = 736-9) 9.5 % MONO % (test code = 5905-5) 8.5 % EOS % (test code = 713-8) 0.0 % BASO % (test code = 706-2) 0.0 % GRAN MAT x10^3(ANC) (test code = 9123348595) 5.77 10*3/uL 1.88-7.09 IMM GRAN x10^3 (test code = 9925237957) 0.12 10*3/uL 0.00-0.06 H LYMPH x10^3 (test code = 731-0) 0.68 10*3/uL 1.32-3.29 L MONO x10^3 (test code = 742-7) 0.61 10*3/uL 0.33-0.92 EOS x10^3 (test code = 711-2) 0.03-0.39 L BASO x10^3 (test code = 704-7) 0.01-0.07 Lab Interpretation (test code = 09626-7) [facility] Gfqun1321-54-20 08:04:10* Test Item Value Reference Range Interpretation Comme nts LACTIC ACID (test code = 3957789153) 4.15 mmol/L 0.50-2.20 H Lab Interpretation (test cod e = 83364-0) [facility] Kaiyj2457-16-26 08:04:10* Test Item Value Reference Range Interpretation Comme nts LACTIC ACID (test code = 3365161260) 4.15 mmol/L 0.50-2.20 H Lab Interpretation (test cod e = 62744-6) [facility] Kaedw1203-63-80 08:04:10* Test Item Value Reference Range Interpretation Comme nts LACTIC ACID (test code = 2617831162) 4.15 mmol/L 0.50-2.20 H Lab Interpretation (test cod e = 76321-4) [facility] Cimhp7648-48-62 05:11:29* Test Item Value Reference Range Interpretation Comme nts LACTIC ACID (test code = 0313878320) 4.23 mmol/L 0.50-2.20 H Lab Interpretation (test cod e = 70250-0) [facility] Gifsb1666-52-34 05:11:29* Test Item Value Reference Range Interpretation Comme nts LACTIC ACID (test code = 4401717660) 4.23 mmol/L 0.50-2.20 H Lab Interpretation (test cod e = 98111-6) [facility]normal [facility] Xymbu2420-09-67 05:11:29* Test Item Value Reference Range Interpretation Comme nts LACTIC ACID (test code = 1317638406) 4.23 mmol/L 0.50-2.20 H Lab Interpretation (test cod e = 99010-9) [facility] Qxfpj3641-02-16 03:16:26* Test Item Value Reference Range Interpretation Comme nts LACTIC ACID (test code = 7788745925) 3.66 mmol/L 0.50-2.20 H Lab Interpretation (test cod e = 59044-2) [facility]normal [facility] Fdwns2354-80-32 03:16:26* Test Item Value Reference Range Interpretation Comme nts LACTIC ACID (test code = 1100178780) 3.66 mmol/L 0.50-2.20 H Lab Interpretation (test cod e = 70400-5) [facility]normal [facility] Rlvdr9930-29-58 03:16:26* Test Item Value Reference Range Interpretation Comme nts LACTIC ACID (test code = 7551408639) 3.66 mmol/L 0.50-2.20 H Lab Interpretation (test cod e = 04019-2) [facility]normal [facility] Mctup7889-03-87 01:21:56* Test Item Value Reference Range Interpretation Comme nts LACTIC ACID (test code = 9995134534) 3.68 mmol/L 0.50-2.20 H Lab Interpretation (test cod e = 34247-6) [facility]normal [facility] Zslax4254-45-68 01:21:56* Test Item Value Reference Range Interpretation Comme nts LACTIC ACID (test code = 6745013047) 3.68 mmol/L 0.50-2.20 H Lab Interpretation (test cod e = 74563-9) [facility] Mziku8417-40-55 01:21:56* Test Item Value Reference Range Interpretation Comme nts LACTIC ACID (test code = 1876283358) 3.68 mmol/L 0.50-2.20 H Lab Interpretation (test cod e = 92624-3) Abnormal [facility] GLUCOSE (AUTOMATED)2023-11-23 01:07:13* Test Item Value Reference Range Interpretation Comme nts POCT GLU (test code = 0970444147) 193 mg/dL 70-110 H Lab Interpretation (test cod e = 80809-7) Abnormal [facility] GLUCOSE (AUTOMATED)2023-11-23 01:07:13* Test Item Value Reference Range Interpretation Comme nts POCT GLU (test code = 5580365338) 193 mg/dL 70-110 H Lab Interpretation (test cod e = 78322-8) Abnormal [facility] GLUCOSE (AUTOMATED)2023-11-23 01:07:13* Test Item Value Reference Range Interpretation Comme nts POCT GLU (test code = 0364465805) 193 mg/dL 70-110 H Lab Interpretation (test cod e = 98514-4) [facility] Mvaaa7456-72-53 23:56:10* Test Item Value Reference Range Interpretation Comme nts LACTIC ACID (test code = 3311507695) 3.82 mmol/L 0.50-2.20 H Lab Interpretation (test cod e = 81857-9) [facility] Zxqaf8514-21-38 23:56:10* Test Item Value Reference Range Interpretation Comme nts LACTIC ACID (test code = 1751908994) 3.82 mmol/L 0.50-2.20 H Lab Interpretation (test cod e = 33372-9) Abnormal [facility] Acid Whole Rxgvc1089-48-74 23:56:10* Test Item Value Reference Range Interpretation Comme nts LACTIC ACID (test code = 6593965234) 3.82 mmol/L 0.50-2.20 H Lab Interpretation (test cod e = 84645-7) Abnormal [facility] GLUCOSE (AUTOMATED)2023-11-22 22:00:27* Test Item Value Reference Range Interpretation Comme nts POCT GLU (test code = 0677610563) 218 mg/dL 70-110 H Lab Interpretation (test cod e = 23847-7) Abnormal [facility] GLUCOSE (AUTOMATED)2023-11-22 22:00:27* Test Item Value Reference Range Interpretation Comme nts POCT GLU (test code = 5118816173) 218 mg/dL 70-110 H Lab Interpretation (test cod e = 63949-7) Abnormal [facility] GLUCOSE (AUTOMATED)2023-11-22 22:00:27* Test Item Value Reference Range Interpretation Comme nts POCT GLU (test code = 6975156167) 218 mg/dL 70-110 H Lab Interpretation (test cod e = 04218-1) [facility]normal [facility] Rzbiq8957-72-27 21:49:39* Test Item Value Reference Range Interpretation Comme nts LACTIC ACID (test code = 6373727098) 4.40 mmol/L 0.50-2.20 H Lab Interpretation (test cod e = 96454-6) [facility]normal [facility] Whole Zikrd8222-00-67 21:49:39* Test Item Value Reference Range Interpretation Comme nts LACTIC ACID (test code = 3553467724) 4.40 mmol/L 0.50-2.20 H Lab Interpretation (test cod e = 52864-9) [facility]normal [facility] Qhwju0546-31-50 21:49:39* Test Item Value Reference Range Interpretation Comme nts LACTIC ACID (test code = 8426797248) 4.40 mmol/L 0.50-2.20 H Lab Interpretation (test cod e = 68230-1) Abnormal [facility] GLUCOSE (AUTOMATED)2023-11-22 21:02:20* Test Item Value Reference Range Interpretation Comme nts POCT GLU (test code = 2173108942) 208 mg/dL 70-110 H Lab Interpretation (test cod e = 31552-6) Abnormal [facility] GLUCOSE (AUTOMATED)2023-11-22 21:02:20* Test Item Value Reference Range Interpretation Comme nts POCT GLU (test code = 1140878414) 208 mg/dL 70-110 H Lab Interpretation (test cod e = 44310-0) Abnormal [facility] GLUCOSE (AUTOMATED)2023-11-22 21:02:20* Test Item Value Reference Range Interpretation Comme nts POCT GLU (test code = 8304566389) 208 mg/dL 70-110 H Lab Interpretation (test cod e = 47508-6) Abnormal [facility] Acid Whole Qcjml0848-80-80 20:01:46* Test Item Value Reference Range Interpretation Comme nts LACTIC ACID (test code = 6810021060) 6.14 mmol/L 0.50-2.20 H Lab Interpretation (test cod e = 85389-8) Abnormal [facility] Acid Whole Aaoot0686-52-46 20:01:46* Test Item Value Reference Range Interpretation Comme nts LACTIC ACID (test code = 0716841349) 6.14 mmol/L 0.50-2.20 H Lab Interpretation (test cod e = 68613-2) Abnormal [facility] acute hospital[facility] Acid Whole Dnxrx1797-29-71 20:01:46* Test Item Value Reference Range Interpretation Comme nts LACTIC ACID (test code = 1990088161) 6.14 mmol/L 0.50-2.20 H Lab Interpretation (test cod e = 97277-6) [facility] BCBRAWK6948-41-20 18:29:14 Procedure: ? RIGHT UPPER QUADRANT ULTRASOUND 11/22/2023 1:27 PM Ordering physician: MEGAN RONDON Clinical indication: ?right upper quadrant pain. Abnormal LFTs. Technique: ?Multiple transverse and longitudinal sonographic images of theright upper quadrant were submitted. Comparison: CAT scan abdomen and pelvis dated 02/19/2021 Findings: ?The liver is echogenic, consistent with fatty infiltration. There isslight nodularity of the liver. No hepatic masses. Hepatic vessels arepatent. The liver measures enlarged at 20.6 cm. Previous cholecystectomy. Pancreas could not be seen due to overlying bowelgas. The spleen, Biliary tree, right kidney, as well as visualized portions ofthe inferior vena cava and aorta are sonographically unremarkable inappearance. ?No evidence [facility] ascites.[facility] 2023-11-22 18:29:14Procedure: ? RIGHT UPPER QUADRANT ULTRASOUND 11/22/2023 1:27 PM Ordering physician: MEGAN RONDON Clinical indication: ?right upper quadrant pain. Abnormal LFTs. Technique: ?Multiple transverse and longitudinal sonographic images of theright upper quadrant were submitted. Comparison: CAT scan abdomen and pelvis dated 02/19/2021 Findings: ?The liver is echogenic, consistent with fatty infiltration. There isslight nodularity of the liver. No hepatic masses. Hepatic vessels arepatent. The liver measures enlarged at 20.6 cm. Previous cholecystectomy. Pancreas could not be seen due to overlying bowel gas. The spleen, Biliary tree, right kidney, as well as visualized portions ofthe inferior vena cava and aorta are sonographically unremarkable inappearance. ?No evidence to ascites.[facility] Transthoracic echo (TTE)2023-11-22 18:16:22* Test Item Value Reference Range Interpretation Comme nts Height (test code = 6711141273) 63 in Weight (test code = 3163503935) 208 lbs Systolic BP (test code = 1042498142) 146 mmHg Diastolic BP (test code = 4328577851) 103 mmHg Heart Rate (test code = 6694710415) 112 bpm BSA (test code = 9005456645) 1.97 m2 LVOT diameter (test code = 9998123653) 2.5 cm LVOT area (test code = 8852742621) 5.00 cm2 LA size (test code = 7326565147) 4.2 cm MV Peak E Evette (test code = 1407887966) 128.5 cm/s MV Peak A Evette (test code = 4649376354) 62.4 cm/s E/A ratio (test code = 6627137021) 2.06 ratio E wave decelartion time (test code = 7000193298) 0.12 s MV Prop V (test code = 0647307088) 38.00 cm/s LAV(MOD-sp4) (test code = 8994815592) 68.70 mL Tapse (test code = 9542045850) 0.7 cm LA Volume Index (BP) (test code = 5905539929) 34.6 mL/m2 LA volume (BP) (test code = 5211729824) 68.0 mL LAV(MOD-sp2) (test code = 2946008881) 66.30 mL Ao peak evette (test code = 7053891370) 124.9 cm/s Ao max PG (test code = 2386179396) 6.20 mm[Hg] AV peak gradient (test code = 0187144734) 6.2 mmHg LVOT stroke volume (test code = 9722649671) 42.40 cm3 LVOT peak evette (test code = 7446595519) 67.8 cm/s LVOT mn grad (test code = 1765372238) 0.9 mmHg AV LVOT peak gradient (test code = 8065676707) 1.84 mmHg LVOT peak VTI (test code = 2889016996) 8.4 cm AV area peak evette (test code = 8668307604) 2.7 cm2 LV V1 mean (test code = 6997048762) 43.20 cm/s TR Peak Evette (test code = 1073734602) 247.7 cm/s Triscuspid Valve Regurgitation Peak Gradient (test code = 7771213086) 24.5 mmHg MR max PG (test code = 4864132133) 85.20 mm[Hg] MR max evette (test code = 9542776503) 461.50 cm/s Mr max evette (test code = 4856465589) 461.5 m/s AV regurgitation pressure 1/2 time (test code = 0691998173) 305.5 ms AI dec slope (test code = 0055496669) 432.10 cm/s2 AI max evette (test code = 5742911326) 450.60 cm/s AI max PG (test code = 2097149845) 81.20 mm[Hg] LVIDD (test code = 3165946096) 5.00 cm Left Ventricular End Diastolic Volume by Teichholz Method (test code = 5339366) 116.6 mL IVS (test code = 4282005909) 0.93 cm Interventricular Septum Diastolic Thickness by 2D (test code = 7862107) 0.93 cm LVPWD (test code = 4427537513) 1.00 cm PW (test code = 1275765019) 1.00 cm 0.6-1.1 EF(Teich) (test code = 4675544273) 33.90 % LVIDS (test code = 8239044371) 4.20 cm Left Ventricular End Systolic Volume by Teichholz Method (test code = 5605036) 77.1 mL FS (test code = 2299854942) 16 % EF - 2D (test code = 77650942) 33.90 % Radiology Study observation (narrative) (test code = 33107-2) LYNDSAY (test code = LYNDSAY) ?Left?Ventricle: Left ventricle is dilated. Normal wall thickness. Severe global hypokinesis present. Apical akinesia. Severely reduced systolic function with a visually estimated EF of 15 - 20%. There is grade 2 diastolic dysfunction. Elevated left ventricular filling pressure. Mass present. There is a large apical LV thrombus measuring 1.7 x 1.5 cm. ?Right?Ventricle: Right ventricle is moderately dilated. Severely reduced systolic function. TAPSE is 0.7 cm. ?Left?Atrium: Left atrium is moderately dilated. ?IVC/SVC: IVC diameter is less than or equal to 21 mm and decreases less than 50% during inspiration; therefore the estimated right atrial pressure is intermediate (~8 mmHg). ?Tricuspid?Valve: Trace transvalvular regurgitation. Insufficient tricuspid regurgitation jet to estimate RVSP . ?Pericardium: Trivial pericardial effusion present. No indication of cardiac tamponade. Left VentricleLeft ventricle is dilated. Normal wall thickness. Severe global hypokinesis present. Apical akinesia. Severely reduced systolic function with a visually estimated EF of 15 - 20%. There is grade 2 diastolic dysfunction. Elevated left ventricular filling pressure. Mass present. There is a large apical LV thrombus measuring 1.7 x 1.5 cm.Right VentricleRight ventricle is moderately dilated. Severely reduced systolic function. TAPSE is 0.7 cm.Left AtriumLeft atrium is moderately dilated.Right AtriumRight atrium is dilated.IVC/SVCIVC diameter is less than or equal to 21 mm and decreases less than 50% during inspiration; therefore the estimated right atrial pressure is intermediate (~8 mmHg).Mitral ValveMitral valve structure is normal. Trace transvalvular regurgitation. No stenosis.Tricuspid ValveTricuspid valve structure is normal. Trace transvalvular regurgitation. Insufficient tricuspid regurgitation jet to estimate RVSP . No stenosis.Aortic ValveAortic valve opens well. Mild transvalvular regurgitation. No hemodynamically significant .Pulmonic ValveNot well visualized. Trace transvalvular regurgitation. No stenosis.Ascending AortaNormal sized aortic root.PericardiumTrivia l pericardial effusion present. No indication of cardiac tamponade.Study DetailsA complete echocardiogram was performed using 2D, color flow Doppler and spectral Doppler. 2 mL of Definity ultrasound enhancing agent used. [facility] 18:16:22* Test Item Value Reference Range Interpretation Comme nts Height (test code = 2241737583) 63 in Weight (test code = 4251131726) 208 lbs Systolic BP (test code = 0899148742) 146 mmHg Diastolic BP (test code = 4592054927) 103 mmHg Heart Rate (test code = 1378132418) 112 bpm BSA (test code = 0667649786) 1.97 m2 LVOT diameter (test code = 7914217604) 2.5 cm LVOT area (test code = 1909392541) 5.00 cm2 LA size (test code = 4121989246) 4.2 cm MV Peak E Evette (test code = 9587100733) 128.5 cm/s MV Peak A Evette (test code = 1305911428) 62.4 cm/s E/A ratio (test code = 0890234352) 2.06 ratio E wave decelartion time (test code = 3032247743) 0.12 s MV Prop V (test code = 5065561090) 38.00 cm/s LAV(MOD-sp4) (test code = 8094347052) 68.70 mL Tapse (test code = 5297419015) 0.7 cm LA Volume Index (BP) (test code = 0279943354) 34.6 mL/m2 LA volume (BP) (test code = 9451955170) 68.0 mL LAV(MOD-sp2) (test code = 6842646290) 66.30 mL Ao peak evette (test code = 4867106733) 124.9 cm/s Ao max PG (test code = 2559601037) 6.20 mm[Hg] AV peak gradient (test code = 8238854734) 6.2 mmHg LVOT stroke volume (test code = 9925004581) 42.40 cm3 LVOT peak evette (test code = 3400230638) 67.8 cm/s LVOT mn grad (test code = 9197174475) 0.9 mmHg AV LVOT peak gradient (test code = 0649090440) 1.84 mmHg LVOT peak VTI (test code = 6770930937) 8.4 cm AV area peak evette (test code = 8885662601) 2.7 cm2 LV V1 mean (test code = 4628085362) 43.20 cm/s TR Peak Evette (test code = 4113699653) 247.7 cm/s Triscuspid Valve Regurgitation Peak Gradient (test code = 1830281401) 24.5 mmHg MR max PG (test code = 1484616095) 85.20 mm[Hg] MR max evette (test code = 5854622491) 461.50 cm/s Mr max evette (test code = 8501377069) 461.5 m/s AV regurgitation pressure 1/2 time (test code = 7411290479) 305.5 ms AI dec slope (test code = 4299857997) 432.10 cm/s2 AI max evette (test code = 1381913683) 450.60 cm/s AI max PG (test code = 9812357135) 81.20 mm[Hg] LVIDD (test code = 0039608377) 5.00 cm Left Ventricular End Diastolic Volume by Teichholz Method (test code = 6080171) 116.6 mL IVS (test code = 6181427295) 0.93 cm Interventricular Septum Diastolic Thickness by 2D (test code = 4519619) 0.93 cm LVPWD (test code = 2999526701) 1.00 cm PW (test code = 6345434520) 1.00 cm 0.6-1.1 EF(Teich) (test code = 3040580743) 33.90 % LVIDS (test code = 5579642564) 4.20 cm Left Ventricular End Systolic Volume by Teichholz Method (test code = 7540091) 77.1 mL FS (test code = 2380968250) 16 % EF - 2D (test code = 79502003) 33.90 % Radiology Study observation (narrative) (test code = 72241-6) LYNDSAY (test code = LYNDSAY) ?Left?Ventricle: Left ventricle is dilated. Normal wall thickness. Severe global hypokinesis present. Apical akinesia. Severely reduced systolic function with a visually estimated EF of 15 - 20%. There is grade 2 diastolic dysfunction. Elevated left ventricular filling pressure. Mass present. There is a large apical LV thrombus measuring 1.7 x 1.5 cm. ?Right?Ventricle: Right ventricle is moderately dilated. Severely reduced systolic function. TAPSE is 0.7 cm. ?Left?Atrium: Left atrium is moderately dilated. ?IVC/SVC: IVC diameter is less than or equal to 21 mm and decreases less than 50% during inspiration; therefore the estimated right atrial pressure is intermediate (~8 mmHg). ?Tricuspid?Valve: Trace transvalvular regurgitation. Insufficient tricuspid regurgitation jet to estimate RVSP . ?Pericardium: Trivial pericardial effusion present. No indication of cardiac tamponade. Left VentricleLeft ventricle is dilated. Normal wall thickness. Severe global hypokinesis present. Apical akinesia. Severely reduced systolic function with a visually estimated EF of 15 - 20%. There is grade 2 diastolic dysfunction. Elevated left ventricular filling pressure. Mass present. There is a large apical LV thrombus measuring 1.7 x 1.5 cm.Right VentricleRight ventricle is moderately dilated. Severely reduced systolic function. TAPSE is 0.7 cm.Left AtriumLeft atrium is moderately dilated.Right AtriumRight atrium is dilated.IVC/SVCIVC diameter is less than or equal to 21 mm and decreases less than 50% during inspiration; therefore the estimated right atrial pressure is intermediate (~8 mmHg).Mitral ValveMitral valve structure is normal. Trace transvalvular regurgitation. No stenosis.Tricuspid ValveTricuspid valve structure is normal. Trace transvalvular regurgitation. Insufficient tricuspid regurgitation jet to estimate RVSP . No stenosis.Aortic ValveAortic valve opens well. Mild transvalvular regurgitation. No hemodynamically significant .Pulmonic ValveNot well visualized. Trace transvalvular regurgitation. No stenosis.Ascending AortaNormal sized aortic root.PericardiumTrivia l pericardial effusion present. No indication of cardiac tamponade.Study DetailsA complete echocardiogram was performed using 2D, color flow Doppler and spectral Doppler. 2 mL of Definity ultrasound enhancing agent used. [facility] Whole Pdrxa7082-90-53 17:29:30* Test Item Value Reference Range Interpretation Comme nts LACTIC ACID (test code = 9510402420) 4.00 mmol/L 0.50-2.20 H QUES Lab Interpretation (test cod e = 46152-7) Abnormal General acute hospitalic Acid Whole Higjv5653-48-12 17:29:30* Test Item Value Reference Range Interpretation Comme nts LACTIC ACID (test code = 1784648323) 4.00 mmol/L 0.50-2.20 H QUES Lab Interpretation (test cod e = 13719-0) Abnormal General acute hospitalic Acid Whole Ydffa5585-03-03 17:29:30* Test Item Value Reference Range Interpretation Comme nts LACTIC ACID (test code = 0277916386) 4.00 mmol/L 0.50-2.20 H QUES Lab Interpretation (test cod e = 91845-7) Abnormal [facility] GLUCOSE (AUTOMATED)2023-11-22 17:01:27* Test Item Value Reference Range Interpretation Comme nts POCT GLU (test code = 1593139404) 152 mg/dL 70-110 H Notified Provide r Lab Interpretation (test code = 75881-9) Abnormal [facility] GLUCOSE (AUTOMATED)2023-11-22 17:01:27* Test Item Value Reference Range Interpretation Comme nts POCT GLU (test code = 7292788718) 152 mg/dL 70-110 H Notified Provide r Lab Interpretation (test code = 61354-7) Abnormal [facility] GLUCOSE (AUTOMATED)2023-11-22 17:01:27* Test Item Value Reference Range Interpretation Comme nts POCT GLU (test code = 3720735607) 152 mg/dL 70-110 H Notified Provide r Lab Interpretation (test code = 05695-1) Abnormal [facility] Hgqtj3570-25-65 16:28:02* Test Item Value Reference Range Interpretation Comme nts IRON (test code = 6199008126) 44 ug/dL 50-160 L TIBC (test code = 8060108167) 395 ug/dL 250-410 % FE SAT (test code = 9394987907) 11 % 20-50 L Lab Interpretation (test cod e = 02209-6) Abnormal [facility] Vszqo2972-51-41 16:28:02* Test Item Value Reference Range Interpretation Comme nts IRON (test code = 4022238007) 44 ug/dL 50-160 L TIBC (test code = 2386667429) 395 ug/dL 250-410 % FE SAT (test code = 4039624350) 11 % 20-50 L Lab Interpretation (test cod e = 75959-5) Abnormal [facility] Smchk9549-32-23 16:28:02* Test Item Value Reference Range Interpretation Comme nts IRON (test code = 8768991338) 44 ug/dL 50-160 L TIBC (test code = 1665092980) 395 ug/dL 250-410 % FE SAT (test code = 5100426275) 11 % 20-50 L Lab Interpretation (test cod e = 39131-8) Abnormal [facility]. Metabolic Panel (03622)2023-11-22 16:20:58* Test Item Value Reference Range Interpretation Comme nts NA (test code = 2687511622) 135 mmol/L 135-145 K (test code = 7752203563) 4.0 mmol/L 3.5-5.0 Slight hemolysis CL (test code = 4013632161) 108 mmol/L 98-108 CO2 TOTAL (test code = 7957038823) 20 mmol/L 23-31 L AGAP (test code = 5268596778) 7 2-16 BUN (test code = 5543094734) 20 mg/dL 7-23 Slight hemolysis GLUCOSE (test code = 6138984957) 136 mg/dL 70-110 H CREATININE (test code = 2160-0) 0.48 mg/dL 0.50-1.04 L TOTAL BILI (test code = 6886234539) 0.8 mg/dL 0.1-1.1 CALCIUM (test code = 2228615978) 6.7 mg/dL 8.6-10.6 L T PROTEIN (test code = 2669263577) 5.6 g/dL 6.3-8.2 L ALBUMIN (test code = 0822995524) 3.1 g/dL 3.5-5.0 L ALK PHOS (test code = 7387992063) 282 U/L 34-122 H Slight hemolysis ALTv (test code = 1742-6) 196 U/L 5-35 H AST(SGOT) (test code = 0197179620) 56 U/L 13-40 H Slight hemolysis eGFR (test code = 04114-8) 114.8 mL/min/1.73m2 CKD-EPI eGFR (2020). Assuming creatinine has been stable day-to-day for at least three months, the eGFR indicates Category G1 (>= 90 mL/min/1.73 m2) Lab Interpretation (test code = 76216-6) Abnormal [facility]. Metabolic Panel (41427)2023-11-22 16:20:58* Test Item Value Reference Range Interpretation Comme nts NA (test code = 5086149087) 135 mmol/L 135-145 K (test code = 4670233908) 4.0 mmol/L 3.5-5.0 Slight hemolysis CL (test code = 6247427527) 108 mmol/L 98-108 CO2 TOTAL (test code = 3792443076) 20 mmol/L 23-31 L AGAP (test code = 3912954985) 7 2-16 BUN (test code = 7967298921) 20 mg/dL 7-23 Slight hemolysis GLUCOSE (test code = 5890924199) 136 mg/dL 70-110 H CREATININE (test code = 2160-0) 0.48 mg/dL 0.50-1.04 L TOTAL BILI (test code = 0825448753) 0.8 mg/dL 0.1-1.1 CALCIUM (test code = 8204349631) 6.7 mg/dL 8.6-10.6 L T PROTEIN (test code = 0627444286) 5.6 g/dL 6.3-8.2 L ALBUMIN (test code = 1083284858) 3.1 g/dL 3.5-5.0 L ALK PHOS (test code = 3872032407) 282 U/L 34-122 H Slight hemolysis ALTv (test code = 1742-6) 196 U/L 5-35 H AST(SGOT) (test code = 4363738133) 56 U/L 13-40 H Slight hemolysis eGFR (test code = 76229-7) 114.8 mL/min/1.73m2 CKD-EPI eGFR (2020). Assuming creatinine has been stable day-to-day for at least three months, the eGFR indicates Category G1 (>= 90 mL/min/1.73 m2) Lab Interpretation (test code = 40831-3) [facility] (50407)2023-11-22 16:20:58* Test Item Value Reference Range Interpretation Comme nts NA (test code = 0451333291) 135 mmol/L 135-145 K (test code = 3801269544) 4.0 mmol/L 3.5-5.0 Slight hemolysis CL (test code = 6701971170) 108 mmol/L 98-108 CO2 TOTAL (test code = 5604450126) 20 mmol/L 23-31 L AGAP (test code = 2231319105) 7 2-16 BUN (test code = 2434673574) 20 mg/dL 7-23 Slight hemolysis GLUCOSE (test code = 0604394342) 136 mg/dL 70-110 H CREATININE (test code = 2160-0) 0.48 mg/dL 0.50-1.04 L TOTAL BILI (test code = 9906854896) 0.8 mg/dL 0.1-1.1 CALCIUM (test code = 6342548983) 6.7 mg/dL 8.6-10.6 L T PROTEIN (test code = 6852337010) 5.6 g/dL 6.3-8.2 L ALBUMIN (test code = 0916857937) 3.1 g/dL 3.5-5.0 L ALK PHOS (test code = 0936394496) 282 U/L 34-122 H Slight hemolysis ALTv (test code = 1742-6) 196 U/L 5-35 H AST(SGOT) (test code = 9021797700) 56 U/L 13-40 H Slight hemolysis eGFR (test code = 55971-0) 114.8 mL/min/1.73m2 CKD-EPI eGFR (2020). Assuming creatinine has been stable day-to-day for at least three months, the eGFR indicates Category G1 (>= 90 mL/min/1.73 m2) Lab Interpretation (test code = 48458-1) [facility]ULMONARY [id number] 15:51:03PROCEDURE: CT ANGIO CHEST WITH CONTRAST - PE PROTOCOL CLINICAL INDICATION: PE suspected, high pretest prob ? COMPARISON: ?None. TECHNIQUE: ?Helical CT was performed and reconstructed from lung bases toapices using intravenous contrast. T FINDINGS: PULMONARY ARTERIES: Enhancement is adequate and there is acute partially occlusive pulmonaryembolism affecting the right lower lobe segmental arteries.CHEST:Lower neck/thyroid: Unremarkable. Lungs: Unremarkable with posterior dependent atelectasis. A6 mm nodesnoted in the right upper lobe. Central airway: Unremarkable Pleura: No pleural effusion, t hickening or pneumothorax. Thoracic aorta and great vessels: ?Normal in diameter. Heart and pericardium: Moderate coronary arterial calcifications and astent. Mild cardiomegaly with enlargement of all chambers. Lymph nodes: No enlarged thoracic lymph nodes. Mediastinum: Unremarkable. Thoracic spineand chest wall: Unremarkable, with normal thoracic vertebralbody heights. Other Lines/Tubes/Devices/Hardware: None Visualized upper abdomen: Changes from cholecystectomy. A left adrenal 2.7cm nodule suspected. [facility] CHEST PULMONARY [id number] 15:51:03PROCEDURE: CT ANGIO CHEST WITH CONTRAST - PE PROTOCOL CLINICAL INDICATION: PE suspected, high pretest prob ? COMPARISON: ?None. TECHNIQUE: ?Helical CT was performed and reconstructed from lung bases t oapices using intravenous contrast. T FINDINGS: PULMONARY ARTERIES: Enhancement is adequate and there is acute partially occlusive pulmonaryembolism affecting the right lower lobe segmental arteries.CHEST:Lower neck/thyroid: Unremarkable. Lungs: Unremarkable with posterior dependent atelectasis. A6 mm nodesnoted in the right upper lobe. Central airway: Unremarkable Pleura: No pleural effusion, thickening or pneumothorax. Thoracic aorta and great vessels: ?Normal in diameter. Heart and pericardium: Moderate coronary arterial calcifications and astent. Mild cardiomegaly with enlargement of all chambers. Lymph nodes: No enlarged thoracic lymph nodes. Mediastinum: Unremarkable. Thoracic spineand chest wall: Unremarkable, with normal thoracic vertebralbody heights. Other Lines/Tubes/Devices/Hardware: None Visualized upper abdomen: Changes from cholecystectomy. A left adrenal 2.7cm nodule suspected. [facility] Whole [id number] 14:33:11* Test Item Value Reference Range Interpretation Comme nts LACTIC ACID (test code = 3237186345) 4.04 mmol/L 0.50-2.20 H QUES Lab Interpretation (test cod e = 61070-0) [facility]normal [facility] Acid Whole [id number] 14:33:11* Test Item Value Reference Range Interpretation Comme nts LACTIC ACID (test code = 0562086808) 4.04 mmol/L 0.50-2.20 H QUES Lab Interpretation (test cod e = 77673-2) Abnormal [facility] Acid Whole [id number] 14:33:11* Test Item Value Reference Range Interpretation Comme nts LACTIC ACID (test code = 7649646691) 4.04 mmol/L 0.50-2.20 H QUES Lab Interpretation (test cod e = 55787-3) Abnormal [facility] GLUCOSE (AUTOMATED)2023-11-22 13:26:51* Test Item Value Reference Range Interpretation Comme nts POCT GLU (test code = 1664015424) 180 mg/dL 70-110 H Notified Provide r Lab Interpretation (test code = 32048-0) Abnormal [facility] GLUCOSE (AUTOMATED)2023-11-22 13:26:51* Test Item Value Reference Range Interpretation Comme nts POCT GLU (test code = 2078024453) 180 mg/dL 70-110 H Notified Provide r Lab Interpretation (test code = 68825-7) Abnormal [facility] GLUCOSE (AUTOMATED)2023-11-22 13:26:51* Test Item Value Reference Range Interpretation Comme nts POCT GLU (test code = 7201436011) 180 mg/dL 70-110 H Notified Provide r Lab Interpretation (test code = 47527-0) [facility]normal [facility] 2+ VW [id number] 09:05:30 Exam: XR SHOULDER 2+ VW RIGHT, 11/22/2023 1:45 AM. Ordering Physician: IVIS MCDERMOTT. History: R arm injury . Technique: Routine view(s) XR SHOULDER 2+ VW RIGHT. Comparison: None. Findings: No evidence of traumatic malalignment. No acute fracture. 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 Eburnation of thegreater tuberosity, sequela of chronic rotator cuff injury. No focalsofttissue swelling. Lungs are clear as visualized. Cervical fusion. [facility]+ VW [id number] 09:05:30 Exam: XR SHOULDER 2+ VW RIGHT, 11/22/2023 1:45 AM. Ordering Physician: IVIS MCDERMOTT. History: R arm injury . Technique: Routine view(s) XR SHOULDER 2+ VW RIGHT. Comparison: None. Findings: No evidence of traumatic malalignment. No acute fracture. 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 Eburnation of thegreater tuberosity, sequela of chronic rotator cuff injury. No focalsofttissue swelling. Lungs are clear as visualized. Cervical fusion. [facility] LOWER EXTREMITY VEIN WITH COMPRESSION BILATERAL (ONLY FOR RULE OUT DVT)2023-11-22 08:50:54Exam: US LOWER EXTREMITY VEIN WITH COMPRESSION BILATERAL (ONLY FOR RULE OUTDVT), 11/22/2023 2:00 AM. O rdering Physician: IVIS MCDERMOTT. History: SOB, swelling . Comparison: CT chest angiogram 12/11/2022. Technique: Grayscale, color Doppler, and pulsed Doppler ultrasound imagesof the lower extremity veins were obtained. ?Evaluation of color Dopplerflow, pulsed Doppler venous waveforms, augmentation, and compression wasperformed from the common femoral through the calf veins. Technical Quality: Adequate. Findings: Nonocclusive thrombus in the right common femoral-greater saphenousjunction. Theremaining venous segments demonstrate normal augmentation,compression, color-flow, and pulsed waveforms on the right. No DVT on theleft.[facility] LOWER EXTREMITY VEIN WITH COMPRESSION BILATERAL (ONLY FOR RULE OUT DVT)2023-11-22 08:50:54Exam: US LOWER EXTREMITY VEIN WITH COMPRESSION BILATERAL (ONLY FOR RULE OUTDVT), 11/22/2023 2:00 AM. Ordering Physician: IVIS MCDERMOTT. History: SOB, swelling . Comparison: CT chest angiogram 12/11/2022. Technique: Grayscale, color Doppler, and pulsed Doppler ultrasound imagesof the lower extremity veins were obtained. ?Evaluation of color Dopplerflow, pulsed Doppler venous waveforms, augmentation, and compression wasperformed from the common femoral through the calf veins. Technical Quality: Adequate. Findings: Nonocclusive thrombus in the right common femoral-greater saphenousjunction. Theremaining venous segments demonstrate normal augmentation,compression, color-flow, and pulsed waveforms on the right. No DVT on theleft.[facility]oL[facility] Acid Whole Blood 2023-11-22 08:16:23* Test Item Value Reference Range Interpretation Comme [facility] LACTIC ACID (test code = 2672183875) 3.93 mmol/L 0.50-2.20 H Lab Interpretation (test cod e = 81358-2) Abnormal [facility] Acid Whole [id number] 08:16:23* Test Item Value Reference Range Interpretation Comme [facility] LACTIC ACID (test code = 9182406131) 3.93 mmol/L 0.50-2.20 H Lab Interpretation (test cod e = 73909-6) Abnormal [facility] PasoL[facility] Acid Whole Ugmhg7307-47-99 08:16:23* Test Item Value Reference Range Interpretation Comme [facility] LACTIC ACID (test code = 3431620735) 3.93 mmol/L 0.50-2.20 H Lab Interpretation (test cod e = 42487-1) Abnormal [facility] PasoProthrombin Time / [id number] 05:00:31* Test Item Value Reference Range Interpretation Comme [facility] PROTIME PATIENT (test code = 5964-2) 15.4 10.1-12.6 H INR (test code = 6301-6) 1.3 Normal INR <1.1; Warfarin Therapeutic range 2.0 to 3.0 or 2.5 to 3.5, depending upon the indications. Lab Interpretation (test code = 59539-1) [facility]normal [facility] PasoaPTT2024-05-05 05:00:31* Test Item Value Reference Range Interpretation Comme [facility] APTT Patient (test code = 3173-2) 27 26-36 LYNDSAY (test code = LYNDSAY) The [facility] patient population mean normal value for aPTT is 30 seconds. Lab Interpretation (test code = 12913-7) Normal [facility] Paso[facility]thrombin Time / [id number] 05:00:31* Test Item Value Reference Range Interpretation Comme nts PROTIME PATIENT (test code = 5964-2) 15.4 10.1-12.6 H INR (test code = 6301-6) 1.3 Normal INR <1.1; Warfarin Therapeutic range 2.0 to 3.0 or 2.5 to 3.5, depending upon the indications. Lab Interpretation (test code = 18937-3) [facility]normal [facility] PasoaPTT2024-05-05 05:00:31* Test Item Value Reference Range Interpretation Comme nts APTT Patient (test code = 3173-2) LYNDSAY (test code = LYNDSAY) The [facility] patient population mean normal value for aPTT is 30 seconds. Lab Interpretation (test code = 30547-9) Normal [facility] PasoProthrombin Time / [id number] 05:00:31* Test Item Value Reference Range Interpretation Comme nts PROTIME PATIENT (test code = 5964-2) 15.4 10.1-12.6 H INR (test code = 6301-6) 1.3 Normal INR <1.1; Warfarin Therapeutic range 2.0 to 3.0 or 2.5 to 3.5, depending upon the indications. Lab Interpretation (test code = 80378-6) Abnormal [facility]oaPTT2024-05-05 05:00:31* Test Item Value Reference Range Interpretation Comme nts APTT Patient (test code = 3173-2) LYNDSAY (test code = LYNDSAY) The [facility] patient population mean normal value for aPTT is 30 seconds. Lab Interpretation (test code = 20272-1) Normal [facility] PasoThyroid Stimulating Tklhmbk7853-82-07 04:25:31 * Test Item Value Reference Range Interpretation Comme nts TSH (test code = 8280702130) 5.26 0.45-4.70 H Lab Interpretation (test cod e = 72920-8) Abnormal [facility] Paso[facility]yroid Stimulating [id number] 04:25:31 * Test Item Value Reference Range Interpretation Comme nts TSH (test code = 7615498680) 5.26 0.45-4.70 H Lab Interpretation (test cod e = 80310-8) Abnormal [facility] Paso[facility] Stimulating Wzzgyct3748-97-12 04:25:31 * Test Item Value Reference Range Interpretation Comme nts TSH (test code = 6322081543) 5.26 0.45-4.70 H Lab Interpretation (test cod e = 61411-1) Abnormal [facility]2024-05-05 04:18:14Megan Rondon MD ? ? 11/21/2023 11:18 PMCritical Care Performed by: Megan Rondon MDAuthorized by: Megan Rondon MD ?Critical care provider statement: ?Critical care time (minutes): ?60 ?Critical care time was exclusive of: ?Separately billable procedures and treating other patients and teaching time ?Critical care was necessary to treat or prevent imminent or life-threatening deterioration of the following conditions: ?Cardiac failure and respiratory failure ?Critical care was time spent personally by me on the following activities: ?Development of treatment plan with patient or surrogate, evaluation of patient's response to treatment, examination of patient, obtaining history from patient or surrogate, ordering and performing treatments and interventions, ordering and review of laboratory studies, ordering and review of radiographic studies, pulse oximetry, re-evaluation of patient's condition and review of old charts ?Care discussed with: admitting provider ?Comments: ? Due to a high probability of clinically significant, life threatening deterioration, the patient required my highest level of preparedness to intervene emergently and I personally spent this critical caretime directly and personally managing the patient. This critical care time included obtaining a history; examining the patient; pulse oximetry; ordering and review of studies; arranging urgent treatment with development of a management plan; evaluation of patient's response to treatment; frequent reassessment; and, discussions with other providers.This critical care time was performed to assess and manage the high probability of imminent, life-threatening deterioration that could result in multi-organ failure. It was exclusive of separately billable procedures and treating other patients.[place] 440262024-05-05 04:11:28* Test Item Value Reference Range Interpretation Comme nts FREE T4 (test code = 6479722593) 1.07 0.78-2.20 Lab Interpretation (test cod e = 96939-6) Normal [place] 440262024-05-05 04:11:28* Test Item Value Reference Range Interpretation Comme nts FREE T4 (test code = 3069105795) 1.07 0.78-2.20 Lab Interpretation (test cod e = 93688-4) Normal [facility] PasoFr [id number] 04:11:28* Test Item Value Reference Range Interpretation Comme nts FREE T4 (test code = 7454304076) 1.07 0.78-2.20 Lab Interpretation (test cod e = 61864-6) Normal [facility] CHEST 1 [id number] 03:22:56Exam: Chest (1 View), 11/21/2023 9:15 PM. Ordering Physician: MEGAN RONDON. History: Chest pain. Technique: One view of the chest. Comparison: 12/11/2022. Findings: Cardiac silhouette is moderately enlarged. There is no pneumothorax. Thereis no consolidation or pleural effusion. Stable mild diffuse interstitialopacities are noted. Pleural and diaphragmatic contours are normal. Changesof anterior ce rvical discectomy and fusion are seen.[facility] CHEST 1 [id number] 03:22:56Exam: Chest (1 View), 11/21/2023 9:15 PM. Ordering Physician: MEGAN RONDON. History: Chest pain. Technique: One view of the chest. Comparison: 12/11/2022. Findings: Cardiac silhouette is moderately enl arged. There is no pneumothorax. Thereis no consolidation or pleural effusion. Stable mild diffuse interstitialopacities are noted. Pleural and diaphragmatic contours are normal. Changesof anterior cervical discectomy and fusion are seen. [facility] PasoBLOOD DRZRFZB4327-38-06 07:00:10* Test Item Value Reference Range Interpretation Comme nts CULTURE (BEAKER) (test code = 1095) No growth in 5 days BLOOD EPEUGBI2507-71-02 07:00:10* Test Item Value Reference Range Interpretation Comme nts CULTURE (BEAKER) (test code = 1095) No growth in 5 days XR KNEE 3 VIEWS LEFT Non-Weight Wfiqymv5670-48-50 09:27:00XR KNEE 3 VIEWS LEFT CLINICAL INDICATION: S/p fall COMPARISON: None FINDINGS: 3views of the left kne e. There is no fracture or malalignment. The femorotibial andfemoropatellar joint spaces are intact. No joint fluid is demonstrated.Surrounding soft tissues are unremarkable. Scattered atheroscleroticvascular calcifications.[facility] Non-Weight Kyhbizv1512-88-23 09:27:00XR KNEE 3 VIEWS LEFT CLINICAL INDICATION: S/p fall COMPARISON: None FINDINGS: 3views of the left knee. There is no fracture or malalignment. The femorotibial andfemoropatellar joint spaces are intact. No joint fluid is demonstrated.Surrounding soft tissues are unremarkable. Scattered atheroscleroticvascular calcifications.[facility]XR KNEE 3 VIEWS [id number] 09:27:00 [facility] : 1970 Sex: FXR KNEE 3 VIEWS LEFT CLINICAL INDICATION: S/p fall COMPARISON: NoneFINDINGS: 3views of the left knee.There is no fracture or malalignment. The femorotibial andfemoropatellar joint spaces are intact.No joint fluid is demonstrated.Surrounding soft tissues are unremarkable. Scattered atheroscleroticvascular calcifications.IMPRESSION: No acute fracture or malalignment of the knee Electronically Signed By: Maxim Sultana09/08/2023 09:29 CDTWorkstation Name: [id number] tepov1717-39-56 08:53:50* Test Item Value Reference Range Interpretation Comme [facility] POC-Glucose Meter (test code = 1538) 101 mg/dL 70-110 : TESTED AT [facility] [address] [place], [address]: Electronics Tech/Pie Crimping Machine Operator ID = [id number] for [facility] Akradhau Lab Interpretation (test code = 50893-4) Normal [facility]Glucose flofy9289-81-46 08:53:50* Test Item Value Reference Range Interpretation Comme nts POC-Glucose Meter (test code = 1538) 101 mg/dL 70-110 : TESTED AT [address], [address]: Electronics Tech/Pie Crimping Machine Operator ID = [id number] for Umeh, Akumbu Lab Interpretation (test code = 64304-6) Normal [facility]PO-Glucose geadd7422-13-09 08:53:50* Test Item Value Reference Range Interpretation Comme nts POC-Glucose Meter (test code = 1538) 101 mg/dL 70-110 : TESTED AT [address], [address]: Electronics Tech/Pie Crimping Machine Operator ID = [id number] for Umeh, Akumbu Lab Interpretation (test code = 98741-3) Normal [facility]PO[facility]Glucose zzgdz6046-27-34 08:53:50* Test Item Value Reference Range Interpretation Comme nts POC-Glucose Meter (test code = 1538) 101 mg/dL 70-110 : TESTED AT [address], [address]: Electronics Tech/[employer]ping Machine Operator ID = [id number] for Umeh, Akumbu Lab Interpretation (test code = 72103-7) Normal [facility]PO[facility]Glucose [id number] 08:53:50* Test Item Value Reference Range Interpretation Comme nts POC-Glucose Meter (test code = 1538) 101 mg/dL 70-110 : TESTED AT [address], [address]: Electronics Tech/Pie Crimping Machine Operator ID = [id number] for Umeh, Akumbu Lab Interpretation (test code = 30557-0) Normal [facility]PO[facility]Glucose sehar3045-79-74 08:53:50* Test Item Value Reference Range Interpretation Comme nts POC-Glucose Meter (test code = 1538) 101 mg/dL 70-110 : TESTED AT [address], [address]: Electronics Tech/[employer]ping Machine Operator ID = [id number] for Umeh, Akumbu Lab Interpretation (test code = 10159-7) Normal [facility]PO-Glucose dtccv6279-26-31 08:53:50* Test Item Value Reference Range Interpretation Comme nts POC-Glucose Meter (test code = 1538) 101 mg/dL 70-110 : TESTED AT [address], [address]: Electronics Tech/Pie Crimping Machine Operator ID = [id number] for Umeh, Akumbu Lab Interpretation (test code = 96754-1) Normal [facility]POC[facility]Glucose rjslo6789-21-70 08:53:50* Test Item Value Reference Range Interpretation Comme nts POC-Glucose Meter (test code = 1538) 101 mg/dL 70-110 : TESTED AT [address], [address]: Electronics Tech/Pie Crimping Machine Operator ID = [id number] for Umeh, Akumbu Lab Interpretation (test code = 12399-7) Normal [facility]POC-Glucose [id number] 08:53:50* Test Item Value Reference Range Interpretation Comme nts POC-Glucose Meter (test code = 1538) 101 mg/dL 70-110 : TESTED AT [address], [address]: Electronics Tech/Pie Crimping Machine Operator ID = [id number] for Umeh, Akumbu Lab Interpretation (test code = 52735-7) Normal [facility]POC-Glucose fadnp6309-32-94 08:53:50* Test Item Value Reference Range Interpretation Comme nts POC-Glucose Meter (test code = 1538) 101 mg/dL 70-110 : TESTED AT [address], [address]: Electronics Tech/Pie Crimping Machine Operator ID = [id number] for Umeh, Akumbu Lab Interpretation (test code = 92403-8) Normal [facility]POC-Glucose zoaft5016-41-35 08:53:50* Test Item Value Reference Range Interpretation Comme nts POC-Glucose Meter (test code = 1538) 101 mg/dL 70-110 : TESTED AT [address], [address]: Electronics Tech/Pie Crimping Machine Operator ID = [id number] for Umeh, Akumbu Lab Interpretation (test code = 74307-3) Normal [facility]-Glucose gafls6308-31-59 08:53:50* Test Item Value Reference Range Interpretation Comme nts POC-Glucose Meter (test code = 1538) 101 mg/dL 70-110 : TESTED AT [address], [address]: Electronics Tech/Pie Crimping Machine Operator ID = [id number] for Umeh, Akumbu Lab Interpretation (test code = 37592-4) Normal [facility]Glucose dknpz8143-98-02 08:53:50* Test Item Value Reference Range Interpretation Comme nts POC-Glucose Meter (test code = 1538) 101 mg/dL 70-110 : TESTED AT [address], [address]: Electronics Tech/Pie Crimping Machine Operator ID = [id number] for Umeh, Akumbu Lab Interpretation (test code = 90748-0) Normal [facility]POC-Glucose qkzck5608-59-41 08:53:50* Test Item Value Reference Range Interpretation Comme nts POC-Glucose Meter (test code = 1538) 101 mg/dL 70-110 : TESTED AT [address], [address]: Electronics Tech/Pie Crimping Machine Operator ID = [id number] for Umeh, [place]umbu Lab Interpretation (test code = 98216-7) Normal [facility]-Glucose ajklv1898-08-40 08:53:50* Test Item Value Reference Range Interpretation Comme nts POC-Glucose Meter (test code = 1538) 101 mg/dL 70-110 : TESTED AT [address], [address]: Electronics Tech/Pie Crimping Machine Operator ID = [id number] for Umeh, [place]umbu Lab Interpretation (test code = 42785-1) Normal [facility]Glucose efshz4660-59-57 08:53:50* Test Item Value Reference Range Interpretation Comme nts POC-Glucose Meter (test code = 1538) 101 mg/dL 70-110 : TESTED AT [address], [address]: Electronics Tech/Pie Crimping Machine Operator ID = [id number] for Umeh, [place]umbu Lab Interpretation (test code = 37086-2) Normal [facility]Glucose fceyx8316-74-94 08:53:50* Test Item Value Reference Range Interpretation Comme nts POC-Glucose Meter (test code = 1538) 101 mg/dL 70-110 : TESTED AT [address], [address]: Electronics Tech/Pie Crimping Machine Operator ID = [id number] for Umeh, Akumbu Lab Interpretation (test code = 90838-8) Normal [facility]Glucose ndijs1940-11-44 08:53:50* Test Item Value Reference Range Interpretation Comme nts POC-Glucose Meter (test code = 1538) 101 mg/dL 70-110 : TESTED AT [address], [address]: Electronics Tech/Pie Crimping Machine Operator ID = [id number] for Umeh, [place]umbu Lab Interpretation (test code = 27577-4) Normal [facility]Glucose tzqzh1025-88-57 08:53:50* Test Item Value Reference Range Interpretation Comme nts POC-Glucose Meter (test code = 1538) 101 mg/dL 70-110 : TESTED AT [address], [address]: Electronics Tech/Pie Crimping Machine Operator ID = [id number] for Umeh, [place]umbu Lab Interpretation (test code = 19594-6) Normal [facility]Glucose kwoea7564-47-63 08:53:50* Test Item Value Reference Range Interpretation Comme nts POC-Glucose Meter (test code = 1538) 101 mg/dL 70-110 : TESTED AT [address], [address]: Electronics Tech/Pie Crimping Machine Operator ID = [id number] for Umeh, Akumbu Lab Interpretation (test code = 15091-0) Normal [facility]ucose [id number] 08:53:50* Test Item Value Reference Range Interpretation Comme nts POC-Glucose Meter (test code = 1538) 101 mg/dL 70-110 : TESTED AT [address], [address]: Electronics Tech/Pie Crimping Machine Operator ID = [id number] for Umeh, Akumbu Lab Interpretation (test code = 35024-2) [facility] [id number] 08:53:50* Test Item Value Reference Range Interpretation Comme nts POC-Glucose Meter (test code = 1538) 101 mg/dL 70-110 : TESTED AT [address], [address]: Electronics Tech/Pie Crimping Machine Operator ID = [id number] for Umeh, Akumbu Lab Interpretation (test code = 93487-3) [facility] [id number] 08:53:50* Test Item Value Reference Range Interpretation Comme nts POC-Glucose Meter (test code = 1538) 101 mg/dL 70-110 : TESTED AT [facility] [address] [facility], [address]: Electronics Tech/Pie Crimping Machine Operator ID = [id number] for Umeh, Akumbu Lab Interpretation (test code = 60669-1) Normal [facility] [id number] 08:53:50* Test Item Value Reference Range Interpretation Comme nts POC-Glucose Meter (test code = 1538) 101 mg/dL 70-110 : TESTED AT [place] [id number] [facility], [address]: Electronics Tech/Pie Crimping Machine Operator ID = [id number] for Umeh, Akumbu Lab Interpretation (test code = 16034-1) Normal [facility] [id number] 08:53:50* Test Item Value Reference Range Interpretation Comme nts POC-GLUCOSE METER (BEAKER) (test code = 1538) 101 mg/dL 70-110 : TESTED AT [place] [id number] [facility], [address]: Electronics Tech/Pie Crimping Machine Operator ID = [id number] for Umeh, Larryumbu BASIC METABOLIC [id number] 05:40:45* Test Item Value Reference Range Interpretation [...] GFR is not applicable for dialysis patients Electronics Tech ID - [id number] 05:40:45* Test Item Value Reference Range Interpretation Comme nts MAGNESIUM (BEAKER) (test cod e = 627) 2.1 mg/dL 1.6-2.6 Electronics Tech ID - [id number] 05:40:45* Test Item Value Reference Range Interpretation Comme nts PHOSPHORUS (BEAKER) (test co de = 604) 5.0 mg/dL 2.3-4.7 H Electronics Tech ID - ADMINCBC W/PLT COUNT & AUTO [id number] 04:49:23* Test Item Value Reference Range Interpretation [...] code = 2801) 0.40 % 0.00-1.00 POCT-GLUCOSE [id number] 21:40:23* Test Item Value Reference Range Interpretation Comme nts POC-GLUCOSE METER (BEAKER) (test code = 1538) 144 mg/dL 70-110 H : TESTED AT [facility] [address] [place], [address]: Electronics Tech/Pie Crimping Machine Operator ID = [id number] for Dinaa Baeza Venous doppler legs [id number] 14:27:12PV LAB - Lower Extremities DVT Study Demographics Patient Name YUE ROMERO Date of Study 09/07/2023 ESTELLE Age 53 Visit Number [id number] Gender Female Accession Number [id number] Dateof 1970 Referring [facility] Room Number 2263 Physician Svp Monetization Adalberto Wood Interpreting John Solorio, Physician FellowProcedureType of Study: Veins: Lower Extremities DVT Study, VENOUS DOPPLER LEG, BILATERAL.Indications for Study:R/O DVT.Patient Status:Pending Discharge.Study Location:Vascular Lab.Technical Quality:Adequate visualization.Risk FactorsHistory of Diseas e+ + + +!Di agnosis !Date !Comments !+ + + +!Hi story/Risk Factors: !03/30/2023!CHF, CVA, HTN. !+ + + -------+ImpressionsRight Impression1. There is no deep venous obstruction in the common femoral, profundafemoral, femoral, popliteal, posterior tibial or peroneal veins wherevisualized.2. There is nosuperficial venous obstruction in the great saphenous veinwhere visualized.Left Impression1. There is no deep venous obstruction in the common femoral, profundafemoral, femoral, popliteal, posterior tibial or peroneal veins wherevisualized.2. There is no superficial venous obstruction in the great saphenous veinwhere visualized. Conclusions Summary Venous duplex imaging and compression of the bilateral lower extremities were performed. The veins were adequately visualized. The bilateral venous s ystems were patent and compressible with no evidence of thrombus. The venous Doppler waveforms werephasic with respiration . Signature Velocities are measured in cm/s ; Diameters are measured in [facility] UCLAVenous doppler legs [id number] 14:27:12PV LAB - Lower Extremities DVT Study Demographics Patient Name YUE ROMERO Date of Study 09/07/2023 ESTELLE Age 53 Visit Number [id number] Gender Female Accession Number [id number] Date of 1970 Referring [facility] Room Number 2263 Physician Svp Monetization Adalberto Wood Interpreting John Solorio, Physician FellowProcedureType of Study: Veins: Lower Extremities DVT Study, VENOUS DOPPLER LEG, BILATERAL.Indications for Study:R/O DVT.Patient Status:Pending Discharg e.Study Location:Vascular Lab.Technical Quality:Adequate visualization.Risk FactorsHistory of Diseas e+ + + +!Di agnosis !Date !Comments !+ + + +!Hi story/Risk Factors: !03/30/2023!CHF, CVA, HTN. !+ + + -------+ImpressionsRight Impression1. There is no deep venous obstruction in the common femoral, profundafemoral, femoral, popliteal, posterior tibial or peroneal veins wherevisualized.2. There is nosuperficial venous obstruction in the great saphenous veinwhere visualized.Left Impression1. There is no deep venous obstruction in the common femoral, profundafemoral, femoral, popliteal, posterior tibial or peroneal veins wherevisualized.2. There is no superficial venous obstruction in the great saphenous veinwhere visualized. Conclusions Summary Venous duplex imaging and compression of the bilateral lower extremities were performed. The veins were adequately visualized. The bilateral venous s ystems were patent and compressible with no evidence of thrombus. The venous Doppler waveforms werephasic with respiration . Signature Velocities are measured in cm/s ; Diameters are measured in [facility] [id number] 04:05:54* Test Item Value Reference Range Interpretation Comme nts MAGNESIUM (BEAKER) (test code = 627) 2.0 mg/dL 1.6-2.6 Specimen sligh tly hemolyzed Electronics Tech ID - MADELINE [id number] 04:05:54* Test Item Value Reference Range Interpretation Comme nts PHOSPHORUS (BEAKER) (test code = 604) 4.5 mg/dL 2.3-4.7 Specimen sligh tly hemolyzed Electronics Tech ID - MADELINE WBASIC METABOLIC [id number] 04:05:54* Test Item Value Reference Range Interpretation [...] GFR is not applicable for dialysis patients Electronics Tech ID - MADELINE WCBC W/PLT COUNT & AUTO [id number] 03:40:48* Test Item Value Reference Range Interpretation [...] code = 2801) 0.30 % 0.00-1.00 POCT-GLUCOSE [id number] 21:28:35* Test Item Value Reference Range Interpretation Comme nts POC-GLUCOSE METER (BEAKER) (test code = 1538) 127 mg/dL 70-110 H : TESTED AT [facility] [address] [facility], [address]: Electronics Tech/Pie Crimping Machine Operator ID = [id number] for Ryan Morin POCT-GLUCOSE [id number] 18:49:21* Test Item Value Reference Range Interpretation Comme nts POC-GLUCOSE METER (BEAKER) (test code = 1538) 122 mg/dL 70-110 H : TESTED AT [facility] [address] [facility], [address]: Electronics Tech/Pie Crimping Machine Operator ID = [id number] for Lauren Santillan POCT-GLUCOSE [id number] 13:27:27* Test Item Value Reference Range Interpretation Comme nts POC-GLUCOSE METER (BEAKER) (test code = 1538) 130 mg/dL 70-110 H : TESTED AT [facility] [address] [facility], [address]: Electronics Tech/Pie Crimping Machine Operator ID = [id number] for Lauren Santillan [id number] 09:09:14* Test Item Value Reference Range Interpretation Comme nts MAGNESIUM (BEAKER) (test cod e = 627) 2.2 mg/dL 1.6-2.6 [id number] 09:09:14* Test Item Value Reference Range Interpretation Comme nts PHOSPHORUS (BEAKER) (test co de = 604) 4.8 mg/dL 2.3-4.7 H BASIC METABOLIC [id number] 09:09:14* Test Item Value Reference Range Interpretation [...] <15Reported eGFR is based on the CKD-EPI 202 equation that does not use a race coefficientEstimated GFR is not as accurate as Creatinine Clearance in predicting glomerular filtration rate. Estimated GFR is not applicable for dialysis patients POCT-GLUCOSE [id number] 08:33:30* Test Item Value Reference Range Interpretation Comme nts POC-GLUCOSE METER (BEAKER) (test code = 1538) 132 mg/dL 70-110 H : TESTED AT [facility] [address] [facility], [address]: Electronics Tech/Pie Crimping Machine Operator ID = [id number] for Lauren Santillan CBC W/PLT COUNT & AUTO [id number] 05:47:59* Test Item Value Reference Range Interpretation [...] code = 2801) 0.40 % 0.00-1.00 POCT-GLUCOSE [id number] 21:35:37* Test Item Value Reference Range Interpretation Comme nts POC-GLUCOSE METER (LATOYA) (test code = 1538) 129 mg/dL 70-110 H : TESTED AT [facility] [address] [facility], [address]: Electronics Tech/Pie Crimping Machine Operator ID = [id number] for Ryan Morin MR Brain Without & With IV [id number] 15:49:58MR BRAIN WITH & WITHOUT IV CONTRAST INDICATION: Brain mass or lesion Technique: MRI of the brain utilizing axial T1, T2, FLAIR, GRE, DWI,sagittal T1; and postgadolinium axial, sagittal, and coronal T1-weightedimages. COMPARISON: None FINDINGS:Brain parenchyma is normal in morphology. Midline structures arenormally developed. No restricted diffusion to suggest recent ischemicinsult. No abnormal susceptibility. Scattered T2/FLAIR hyperintense foci within the periventricular andsubcortical white matter are nonspecific, however, statisticallyrepresent chronic microvascular ischemic changes. No hydrocephalus. Orbits are within normal limits. No obstructive paranasal sinus disease. Additionalfindings: None.[facility]MR [facility] Without & With IV [id number] 15:49:58MR BRAIN WITH & WITHOUT IV CONTRAST INDICATION: Brain mass or lesion Technique: MRI of the brain utilizing axial T1, T2, FLAIR, GRE, DWI,sagittal T1; and postgadolinium axial, sagittal, and coronal T1-weightedimages. COMPARISON: None FINDINGS:Brain parenchyma is normal in morphology. Midline structures arenormally developed. No restricted diffusion to suggest recent ischemicinsult. No abnormal susceptibility. Scattered T2/FLAIR hyperintense foci within the periventricular andsubcortical white matter are nonspecific, however, statisticallyrepresent chronic microvascular ischemic changes. No hydrocephalus. Orbits are within normal limits. No obstructive paranasal sinus disease. Additionalfindings: None.[facility] HospitalMR BRAIN WITH & WITHOUT IV [id number] 15:49:58 [facility] : 1970 [...] Signed By: Zeinab Dempsey09/05/2023 15:53 CDTWorkstation Name: [id number] METER 2023-09-05 08:34:25* Test Item Value Reference Range Interpretation Comme nts POC-GLUCOSE METER (BEAKER) (test code = 1538) 115 mg/dL 70-110 H : TESTED AT [facility] [address] [place], [address]: Electronics Tech/Pie Crimping Machine Operator ID = [id number] for DOMINGA AMADOR BASIC METABOLIC [id number] 06:06:56* Test Item Value Reference Range Interpretation [...] GFR is not applicable for dialysis patients Electronics Tech ID - [id number] 06:06:56* Test Item Value Reference Range Interpretation Comme nts MAGNESIUM (BEAKER) (test cod e = 627) 2.2 mg/dL 1.6-2.6 Electronics Tech ID - [id number] 06:06:56* Test Item Value Reference Range Interpretation Comme nts PHOSPHORUS (BEAKER) (test co de = 604) 3.8 mg/dL 2.3-4.7 Electronics Tech ID - ADMINCBC W/PLT COUNT & AUTO [id number] 05:29:32* Test Item Value Reference Range Interpretation [...] code = 2801) 0.50 % 0.00-1.00 POCT-GLUCOSE [id number] 04:55:18* Test Item Value Reference Range Interpretation Comme nts POC-GLUCOSE METER (BEAKER) (test code = 1538) 99 mg/dL 70-110 : TESTED AT [facility] [address] [place] [address], [address]: Electronics Tech/Pie Crimping Machine Operator ID = [id number] for Ryan Morin POCT-GLUCOSE [id number] 21:49:23* Test Item Value Reference Range Interpretation Comme nts POC-GLUCOSE METER (BEAKER) (test code = 1538) 124 mg/dL 70-110 H : TESTED AT [facility] [address] [facility], [address]: Electronics Tech/Pie Crimping Machine Operator ID = [id number] for Ryan Morin POCT-GLUCOSE [id number] 15:55:53* Test Item Value Reference Range Interpretation Comme nts POC-GLUCOSE METER (BEAKER) (test code = 1538) 126 mg/dL 70-110 H : TESTED AT [facility] [address] [facility], [address]: Electronics Tech/Pie Crimping Machine Operator ID = [id number] for Tramaine Daniels [id number] 12:37:56* Test Item Value Reference Range Interpretation Comme nts PROCALCITONIN (BEAKER) (test code = 3036) < ng/mL <0.05 SEPSIS RISK (ng/mL)Low: 0.05-0.50Intermediate: 0.51-2.00High: >=2.01SARS- CoV2/Influenza/RSV [id number] 12:18:09* Test Item Value Reference Range Interpretation Comments SARS-COV2/RT-PCR (test code = 08511-2) Negative Negative The SARS-CoV-2 target nucleic acids [...] provider. Influenza A RT-PCR (test code = 38961-2) Negative Negative The Flu A target nucleic acids are not detected in this specimen. Influenza B RT-PCR (test code = 74519-9) Negative Negative The Flu B target nucleic acids are not detected in this specimen. RSV by RT-PCR (test code = 27291-7) Negative Negative The RSV target nucleic acids [...] the Act. Fact Sheet for Healthcare Providers:https://manuel Urbita/Docu ments/Xpert%20Xpres s%20SARS%20CoV-2/Fa ct%20Sheets/302-390 2%44SWTN-ZDX-5%20HE ALTHCARE%20PROVIDER S%20FACT%20SHEET.pd f Fact Sheet for Healthcare Patients:https://maria elena [employer]/Docum ents/Xpert%20Xpress %20SARS%20Cov-2/Fac t%20Sheets/302-3801 %13TBQP-YHG-4%20PAT IENT%20FACT%20SHEET .pdf Lab Interpretation (test code = 36708-7) [facility] [id number] 12:18:09* Test Item Value Reference Range Interpretation Comments SARS-COV2/RT-PCR (test code = 04361-9) Negative Negative The SARS-CoV-2 target nucleic acids [...] provider. Influenza A RT-PCR (test code = 17873-2) Negative Negative The Flu A target nucleic acids are not detected in this specimen. Influenza B RT-PCR (test code = 69991-1) Negative Negative The Flu B target nucleic acids are not detected in this specimen. RSV by RT-PCR (test code = 68103-4) Negative Negative The RSV target nucleic acids [...] SARS-CoV-2/Flu/RSV by their healthcare provider. Results from [facility] Xpert Xpress SARS-CoV-2/Flu/RSV test should be [...] the Act. Fact Sheet for Healthcare Providers:https://w Urbita/Docu ments/Xpert%20Xpres s%20SARS%20CoV-2/Fa ct%20Sheets/302-390 2%44WALF-BML-0%20HE ALTHCARE%20PROVIDER S%20FACT%20SHEET.pd f Fact Sheet for Healthcare Patients:https://[employer]/Docum ents/Xpert%20Xpress %20SARS%20Cov-2/Fac t%20Sheets/302-3801 %95MFLK-VZM-6%20PAT IENT%20FACT%20SHEET .pdf Lab Interpretation (test code = 10291-2) [facility] [id number] 12:18:09* Test Item Value Reference Range Interpretation Comments SARS-COV2/RT-PCR (test code = 63791-2) Negative Negative The SARS-CoV-2 target nucleic acids [...] provider. Influenza A RT-PCR (test code = 10440-7) Negative Negative The Flu A target nucleic acids are not detected in this specimen. Influenza B RT-PCR (test code = 40547-3) Negative Negative The Flu B target nucleic acids are not detected in this specimen. RSV by RT-PCR (test code = 40720-4) Negative Negative The RSV target nucleic acids [...] SARS-CoV-2/Flu/RSV by their healthcare provider. Results from [facility] Xpert Xpress SARS-CoV-2/Flu/RSV test should be [...] the Act. Fact Sheet for Healthcare Providers:https://w ww.[employer]/Docu ments/Xpert%20Xpres s%20SARS%20CoV-2/Fa ct%20Sheets/302-390 2%95COWR-UGH-2%20HE ALTHCARE%20PROVIDER S%20FACT%20SHEET.pd f Fact Sheet for Healthcare Patients:https://ww w.[employer]/Docum ents/Xpert%20Xpress %20SARS%20Cov-2/Fac t%20Sheets/302-3801 %60HAVV-OYI-7%20PAT IENT%20FACT%20SHEET .pdf Lab Interpretation (test code = 01482-0) [facility] [id number] 12:18:09* Test Item Value Reference Range Interpretation Comments SARS-COV2/RT-PCR (test code = 84394-3) Negative Negative The SARS-CoV-2 target nucleic acids [...] provider. Influenza A RT-PCR (test code = 40315-9) Negative Negative The Flu A target nucleic acids are not detected in this specimen. Influenza B RT-PCR (test code = 02553-7) Negative Negative The Flu B target nucleic acids are not detected in this specimen. RSV by RT-PCR (test code = 16308-8) Negative Negative The RSV target nucleic acids [...] SARS-CoV-2/Flu/RSV by their healthcare provider. Results from [facility] Xpert Xpress SARS-CoV-2/Flu/RSV test should be [...] the Act. Fact Sheet for Healthcare Providers:https://w Urbita/Docu ments/Xpert%20Xpres s%20SARS%20CoV-2/Fa ct%20Sheets/302-390 2%27YYDP-NNB-3%20HE ALTHCARE%20PROVIDER S%20FACT%20SHEET.pd f Fact Sheet for Healthcare Patients:https://[employer]imuth/Docum ents/Xpert%20Xpress %20SARS%20Cov-2/Fac t%20Sheets/302-3801 %30KIHP-DXU-6%20PAT IENT%20FACT%20SHEET .pdf Lab Interpretation (test code = 07883-4) [facility] [id number] 12:18:09* Test Item Value Reference Range Interpretation Comments SARS-COV2/RT-PCR (test code = 12548-7) Negative Negative The SARS-CoV-2 target nucleic acids [...] provider. Influenza A RT-PCR (test code = 69363-8) Negative Negative The Flu A target nucleic acids are not detected in this specimen. Influenza B RT-PCR (test code = 30723-6) Negative Negative The Flu B target nucleic acids are not detected in this specimen. RSV by RT-PCR (test code = 89036-5) Negative Negative The RSV target nucleic acids [...] the Act. Fact Sheet for Healthcare Providers:https://w Urbita/Docu ments/Xpert%20Xpres s%20SARS%20CoV-2/Fa ct%20Sheets/302-390 2%39JRQF-PZX-7%20HE ALTHCARE%20PROVIDER S%20FACT%20SHEET.pd f Fact Sheet for Healthcare Patients:https://ww [employer]/Docum ents/Xpert%20Xpress %20SARS%20Cov-2/Fac t%20Sheets/302-3801 %99LBFN-ZEI-8%20PAT IENT%20FACT%20SHEET .pdf Lab Interpretation (test code = 80744-8) [facility] [id number] 12:18:09* Test Item Value Reference Range Interpretation Comments SARS-COV2/RT-PCR (test code = 01230-2) Negative Negative The SARS-CoV-2 target nucleic acids [...] provider. Influenza A RT-PCR (test code = 23560-3) Negative Negative The Flu A target nucleic acids are not detected in this specimen. Influenza B RT-PCR (test code = 80413-6) Negative Negative The Flu B target nucleic acids are not detected in this specimen. RSV by RT-PCR (test code = 91640-7) Negative Negative The RSV target nucleic acids [...] the Act. Fact Sheet for Healthcare Providers:https://manuel Urbita/Docu ments/Xpert%20Xpres s%20SARS%20CoV-2/Fa ct%20Sheets/302-390 2%38EHKD-KXJ-9%20HE ALTHCARE%20PROVIDER S%20FACT%20SHEET.pd f Fact Sheet for Healthcare Patients:https://maria elena [employer]/Docum ents/Xpert%20Xpress %20SARS%20Cov-2/Fac t%20Sheets/302-3801 %94QPIK-LNU-4%20PAT IENT%20FACT%20SHEET .pdf Lab Interpretation (test code = 84737-9) [facility] [id number] 12:18:09* Test Item Value Reference Range Interpretation Comments SARS-COV2/RT-PCR (test code = 61234-8) Negative Negative The SARS-CoV-2 target nucleic acids [...] provider. Influenza A RT-PCR (test code = 28957-1) Negative Negative The Flu A target nucleic acids are not detected in this specimen. Influenza B RT-PCR (test code = 53630-9) Negative Negative The Flu B target nucleic acids are not detected in this specimen. RSV by RT-PCR (test code = 34535-6) Negative Negative The RSV target nucleic acids [...] SARS-CoV-2/Flu/RSV by their healthcare provider. Results from [facility] Xpert Xpress SARS-CoV-2/Flu/RSV test should be [...] the Act. Fact Sheet for Healthcare Providers:https://w Urbita/Docu ments/Xpert%20Xpres s%20SARS%20CoV-2/Fa ct%20Sheets/302-390 2%86VHLC-CFD-5%20HE ALTHCARE%20PROVIDER S%20FACT%20SHEET.pd f Fact Sheet for Healthcare Patients:https://maria elena [employer]/Docum ents/Xpert%20Xpress %20SARS%20Cov-2/Fac t%20Sheets/302-3801 %31IDBJ-GKC-2%20PAT IENT%20FACT%20SHEET .pdf Lab Interpretation (test code = 68706-6) [facility] [id number] 12:18:09* Test Item Value Reference Range Interpretation Comments SARS-COV2/RT-PCR (test code = 59054-4) Negative Negative The SARS-CoV-2 target nucleic acids [...] provider. Influenza A RT-PCR (test code = 08467-7) Negative Negative The Flu A target nucleic acids are not detected in this specimen. Influenza B RT-PCR (test code = 23983-3) Negative Negative The Flu B target nucleic acids are not detected in this specimen. RSV by RT-PCR (test code = 68526-8) Negative Negative The RSV target nucleic acids [...] Act. Fact Sheet for Healthcare Providers:https://w maria elena.[employer]uel/Docu ments/Xpert%20Xpres s%20SARS%20CoV-2/Fa ct%20Sheets/302-390 2%16UJNM-ZLG-8%20HE ALTHCARE%20PROVIDER S%20FACT%20SHEET.pd f Fact Sheet for Healthcare Patients:https://ww w.[employer]/Docum ents/Xpert%20Xpress %20SARS%20Cov-2/Fac t%20Sheets/3023801 %74AZGO-JNC-2%20PAT IENT%20FACT%20SHEET .pdf Lab Interpretation (test code = 77221-3) [facility] [id number] 12:18:09* Test Item Value Reference Range Interpretation Comments SARS-COV2/RT-PCR (test code = 00646-2) Negative Negative The SARS-CoV-2 target nucleic acids [...] provider. Influenza A RT-PCR (test code = 91696-3) Negative Negative The Flu A target nucleic acids are not detected in this specimen. Influenza B RT-PCR (test code = 83401-6) Negative Negative The Flu B target nucleic acids are not detected in this specimen. RSV by RT-PCR (test code = 02306-3) Negative Negative The RSV target nucleic acids [...] SARS-CoV-2/Flu/RSV by their healthcare provider. Results from [facility] Xpert Xpress SARS-CoV-2/Flu/RSV test should be [...] of the Act. Fact Sheet for Healthcare Providers:https://e[employer]uelDepot/Docu ments/Xpert%20Xpres s%20SARS%20CoV-2/Fa ct%20Sheets/302-390 2%03QUVG-IAI-7%20HE ALTHCARE%20PROVIDER S%20FACT%20SHEET.pd f Fact Sheet for Healthcare Patients:https://[employer]imuth/Docum ents/Xpert%20Xpress %20SARS%20Cov-2/Fac t%20Sheets/302-3801 %38QKIG-FCZ-2%20PAT IENT%20FACT%20SHEET .pdf Lab Interpretation (test code = 08322-6) [facility] [id number] 12:18:09* Test Item Value Reference Range Interpretation Comments SARS-COV2/RT-PCR (test code = 09963-3) Negative Negative The SARS-CoV-2 target nucleic acids [...] provider. Influenza A RT-PCR (test code = 58304-3) Negative Negative The Flu A target nucleic acids are not detected in this specimen. Influenza B RT-PCR (test code = 30450-1) Negative Negative The Flu B target nucleic acids are not detected in this specimen. RSV by RT-PCR (test code = 49720-4) Negative Negative The RSV target nucleic acids [...] the Act. Fact Sheet for Healthcare Providers:https://w [employer]a/Docu ments/Xpert%20Xpres s%20SARS%20CoV-2/Fa ct%20Sheets/302-390 2%83UYLA-WKF-3%20HE ALTHCARE%20PROVIDER S%20FACT%20SHEET.pd f Fact Sheet for Healthcare Patients:https://ww [employer]/Docum ents/Xpert%20Xpress %20SARS%20Cov-2/Fac t%20Sheets/302-3801 %64YCSS-XOG-4%20PAT IENT%20FACT%20SHEET .pdf Lab Interpretation (test code = 82041-3) [facility] [id number] 12:18:09* Test Item Value Reference Range Interpretation Comments SARS-COV2/RT-PCR (test code = 22100-3) Negative Negative The SARS-CoV-2 target nucleic acids [...] provider. Influenza A RT-PCR (test code = 04803-7) Negative Negative The Flu A target nucleic acids are not detected in this specimen. Influenza B RT-PCR (test code = 55453-5) Negative Negative The Flu B target nucleic acids are not detected in this specimen. RSV by RT-PCR (test code = 54412-6) Negative Negative The RSV target nucleic acids [...] the Act. Fact Sheet for Healthcare Providers:https://manuel Ur[employer]/Docu ments/Xpert%20Xpres s%20SARS%20CoV-2/Fa ct%20Sheets/302-390 2%22CNXS-QZS-3%20HE ALTHCARE%20PROVIDER S%20FACT%20SHEET.pd f Fact Sheet for Healthcare Patients:https://maria elena [employer]/Docum ents/Xpert%20Xpress %20SARS%20Cov-2/Fac t%20Sheets/302-3801 %01RKXJ-VDT-7%20PAT IENT%20FACT%20SHEET .pdf Lab Interpretation (test code = 77145-1) [facility] [id number] 12:18:09* Test Item Value Reference Range Interpretation Comments SARS-COV2/RT-PCR (test code = 70175-2) Negative Negative The SARS-CoV-2 target nucleic acids [...] provider. Influenza A RT-PCR (test code = 12016-8) Negative Negative The Flu A target nucleic acids are not detected in this specimen. Influenza B RT-PCR (test code = 10317-4) Negative Negative The Flu B target nucleic acids are not detected in this specimen. RSV by RT-PCR (test code = 98584-1) Negative Negative The RSV target nucleic acids [...] the Act. Fact Sheet for Healthcare Providers:https://w [employer]/Docu ments/Xpert%20Xpres s%20SARS%20CoV-2/Fa ct%20Sheets/302-390 2%21RQWK-YKF-3%20HE ALTHCARE%20PROVIDER S%20FACT%20SHEET.pd f Fact Sheet for Healthcare Patients:https://[employer]/Docum ents/Xpert%20Xpress %20SARS%20Cov-2/Fac t%20Sheets/302-3801 %45DZHG-WYL-3%20PAT IENT%20FACT%20SHEET .pdf Lab Interpretation (test code = 81028-9) [facility] [id number] 12:18:09* Test Item Value Reference Range Interpretation Comments SARS-COV2/RT-PCR (test code = 47123-1) Negative Negative The SARS-CoV-2 target nucleic acids [...] provider. Influenza A RT-PCR (test code = 63769-5) Negative Negative The Flu A target nucleic acids are not detected in this specimen. Influenza B RT-PCR (test code = 00674-0) Negative Negative The Flu B target nucleic acids are not detected in this specimen. RSV by RT-PCR (test code = 27005-4) Negative Negative The RSV target nucleic acids [...] Act. Fact Sheet for Healthcare Providers:https://w maria elena.[facility] [facility].[employer]/Docu ments/Xpert%20Xpres s%20SARS%20CoV-2/Fa ct%20Sheets/302-390 2%25VROF-FXQ-7%20HE ALTHCARE%20PROVIDER S%20FACT%20SHEET.pd f Fact Sheet for Healthcare Patients:https://ww w.Pre[employer]/Docum ents/Xpert%20Xpress %20SARS%20Cov-2/Fac t%20Sheets/302-3801 %29PJLY-CUS-6%20PAT IENT%20FACT%20SHEET .pdf Lab Interpretation (test code = 97804-4) [facility] [id number] 12:18:09* Test Item Value Reference Range Interpretation Comments SARS-COV2/RT-PCR (test code = 00039-1) Negative Negative The SARS-CoV-2 target nucleic acids [...] provider. Influenza A RT-PCR (test code = 06556-9) Negative Negative The Flu A target nucleic acids are not detected in this specimen. Influenza B RT-PCR (test code = 22231-9) Negative Negative The Flu B target nucleic acids are not detected in this specimen. RSV by RT-PCR (test code = 88024-8) Negative Negative The RSV target nucleic acids [...] SARS-CoV-2/Flu/RSV by their healthcare provider. Results from [facility] Xpert Xpress SARS-CoV-2/Flu/RSV test should be [...] of the Act. Fact Sheet for Healthcare Providers:https://[employer]/Docu ments/Xpert%20Xpres s%20SARS%20CoV-2/Fa ct%20Sheets/302-390 2%79RZTG-SRL-0%20HE ALTHCARE%20PROVIDER S%20FACT%20SHEET.pd f Fact Sheet for Healthcare Patients:https://[employer]/Docum ents/Xpert%20Xpress %20SARS%20Cov-2/Fac t%20Sheets/302-3801 %90GZWF-SNF-5%20PAT IENT%20FACT%20SHEET .pdf Lab Interpretation (test code = 51357-0) [facility] [id number] 12:18:09* Test Item Value Reference Range Interpretation Comments SARS-COV2/RT-PCR (test code = 26717-1) Negative Negative The SARS-CoV-2 target nucleic acids [...] provider. Influenza A RT-PCR (test code = 06669-9) Negative Negative The Flu A target nucleic acids are not detected in this specimen. Influenza B RT-PCR (test code = 68503-5) Negative Negative The Flu B target nucleic acids are not detected in this specimen. RSV by RT-PCR (test code = 66472-9) Negative Negative The RSV target nucleic acids [...] the Act. Fact Sheet for Healthcare Providers:https://w [employer]a/Docu ments/Xpert%20Xpres s%20SARS%20CoV-2/Fa ct%20Sheets/302-390 2%61TIHD-KQV-9%20HE ALTHCARE%20PROVIDER S%20FACT%20SHEET.pd f Fact Sheet for Healthcare Patients:https://ww [employer]/Docum ents/Xpert%20Xpress %20SARS%20Cov-2/Fac t%20Sheets/302-3801 %20VXAG-OFA-4%20PAT IENT%20FACT%20SHEET .pdf Lab Interpretation (test code = 94644-7) [facility] [id number] 12:18:09* Test Item Value Reference Range Interpretation Comments SARS-COV2/RT-PCR (test code = 71510-4) Negative Negative The SARS-CoV-2 target nucleic acids [...] provider. Influenza A RT-PCR (test code = 08656-5) Negative Negative The Flu A target nucleic acids are not detected in this specimen. Influenza B RT-PCR (test code = 93678-4) Negative Negative The Flu B target nucleic acids are not detected in this specimen. RSV by RT-PCR (test code = 83219-4) Negative Negative The RSV target nucleic acids [...] the Act. Fact Sheet for Healthcare Providers:https://w [employer]/Docu ments/Xpert%20Xpres s%20SARS%20CoV-2/Fa ct%20Sheets/302-390 2%81DYXY-XRB-1%20HE ALTHCARE%20PROVIDER S%20FACT%20SHEET.pd f Fact Sheet for Healthcare Patients:https://maria elena [employer]/Docum ents/Xpert%20Xpress %20SARS%20Cov-2/Fac t%20Sheets/302-3801 %14FIPS-LNF-9%20PAT IENT%20FACT%20SHEET .pdf Lab Interpretation (test code = 06733-9) [facility] [id number] 12:18:09* Test Item Value Reference Range Interpretation Comments SARS-COV2/RT-PCR (test code = 55405-3) Negative Negative The SARS-CoV-2 target nucleic acids [...] provider. Influenza A RT-PCR (test code = 23959-4) Negative Negative The Flu A target nucleic acids are not detected in this specimen. Influenza B RT-PCR (test code = 37469-8) Negative Negative The Flu B target nucleic acids are not detected in this specimen. RSV by RT-PCR (test code = 41285-5) Negative Negative The RSV target nucleic acids [...] the Act. Fact Sheet for Healthcare Providers:https://w [employer]/Docu ments/Xpert%20Xpres s%20SARS%20CoV-2/Fa ct%20Sheets/302-390 2%58AHXZ-IXX-1%20HE ALTHCARE%20PROVIDER S%20FACT%20SHEET.pd f Fact Sheet for Healthcare Patients:https://[employer]/Docum ents/Xpert%20Xpress %20SARS%20Cov-2/Fac t%20Sheets/302-3801 %94CPDN-LXB-6%20PAT IENT%20FACT%20SHEET .pdf Lab Interpretation (test code = 88683-4) [facility] [id number] 12:18:09* Test Item Value Reference Range Interpretation Comments SARS-COV2/RT-PCR (test code = 21966-6) Negative Negative The SARS-CoV-2 target nucleic acids [...] provider. Influenza A RT-PCR (test code = 00310-6) Negative Negative The Flu A target nucleic acids are not detected in this specimen. Influenza B RT-PCR (test code = 82473-8) Negative Negative The Flu B target nucleic acids are not detected in this specimen. RSV by RT-PCR (test code = 47997-5) Negative Negative The RSV target nucleic acids [...] the Act. Fact Sheet for Healthcare Providers:https://manuel arredondo.Pre[employer]/Docu ments/Xpert%20Xpres s%20SARS%20CoV-2/Fa ct%20Sheets/302-390 2%82OJSP-HQH-4%20HE ALTHCARE%20PROVIDER S%20FACT%20SHEET.pd f Fact Sheet for Healthcare Patients:https://[employer]/Docum ents/Xpert%20Xpress %20SARS%20Cov-2/Fac t%20Sheets/302-3801 %29BIHE-RYI-5%20PAT IENT%20FACT%20SHEET .pdf Lab Interpretation (test code = 31965-1) [facility] [id number] 12:18:09* Test Item Value Reference Range Interpretation Comments SARS-COV2/RT-PCR (test code = 37933-7) Negative Negative The SARS-CoV-2 target nucleic acids [...] provider. Influenza A RT-PCR (test code = 45521-6) Negative Negative The Flu A target nucleic acids are not detected in this specimen. Influenza B RT-PCR (test code = 62568-1) Negative Negative The Flu B target nucleic acids are not detected in this specimen. RSV by RT-PCR (test code = 60268-5) Negative Negative The RSV target nucleic acids [...] SARS-CoV-2/Flu/RSV by their healthcare provider. Results from [facility] Xpert Xpress SARS-CoV-2/Flu/RSV test should be [...] the Act. Fact Sheet for Healthcare Providers:https://w [employer]/Docu ments/Xpert%20Xpres s%20SARS%20CoV-2/Fa ct%20Sheets/302-390 2%44SWAZ-CWS-0%20HE ALTHCARE%20PROVIDER S%20FACT%20SHEET.pd f Fact Sheet for Healthcare Patients:https://[employer]/Docum ents/Xpert%20Xpress %20SARS%20Cov-2/Fac t%20Sheets/302-3801 %62XDZF-YRL-6%20PAT IENT%20FACT%20SHEET .pdf Lab Interpretation (test code = 23604-7) [facility] [id number] 12:18:09* Test Item Value Reference Range Interpretation Comments SARS-COV2/RT-PCR (test code = 09700-4) Negative Negative The SARS-CoV-2 target nucleic acids [...] provider. Influenza A RT-PCR (test code = 63039-5) Negative Negative The Flu A target nucleic acids are not detected in this specimen. Influenza B RT-PCR (test code = 78428-5) Negative Negative The Flu B target nucleic acids are not detected in this specimen. RSV by RT-PCR (test code = 18748-0) Negative Negative The RSV target nucleic acids [...] the Act. Fact Sheet for Healthcare Providers:https://w [employer]/Docu ments/Xpert%20Xpres s%20SARS%20CoV-2/Fa ct%20Sheets/302-390 2%87QQOL-NPZ-6%20HE ALTHCARE%20PROVIDER S%20FACT%20SHEET.pd f Fact Sheet for Healthcare Patients:https://ww [employer]/Docum ents/Xpert%20Xpress %20SARS%20Cov-2/Fac t%20Sheets/302-3801 %66FOWB-SKM-4%20PAT IENT%20FACT%20SHEET .pdf Lab Interpretation (test code = 22536-9) [facility] [id number] 12:18:09* Test Item Value Reference Range Interpretation Comments SARS-COV2/RT-PCR (test code = 30294-8) Negative Negative The SARS-CoV-2 target nucleic acids [...] provider. Influenza A RT-PCR (test code = 35428-6) Negative Negative The Flu A target nucleic acids are not detected in this specimen. Influenza B RT-PCR (test code = 28915-4) Negative Negative The Flu B target nucleic acids are not detected in this specimen. RSV by RT-PCR (test code = 17981-4) Negative Negative The RSV target nucleic acids [...] SARS-CoV-2/Flu/RSV by their healthcare provider. Results from [facility] Xpert Xpress SARS-CoV-2/Flu/RSV test should be [...] the Act. Fact Sheet for Healthcare Providers:https://w [employer]/Docu ments/Xpert%20Xpres s%20SARS%20CoV-2/Fa ct%20Sheets/302-390 2%90UIBE-VCD-8%20HE ALTHCARE%20PROVIDER S%20FACT%20SHEET.pd f Fact Sheet for Healthcare Patients:https://maria elena [employer]/Docum ents/Xpert%20Xpress %20SARS%20Cov-2/Fac t%20Sheets/302-3801 %31KIEC-ZMZ-2%20PAT IENT%20FACT%20SHEET .pdf Lab Interpretation (test code = 00980-7) [facility] [id number] 12:18:09* Test Item Value Reference Range Interpretation Comments SARS-COV2/RT-PCR (test code = 17813-8) Negative Negative The SARS-CoV-2 target nucleic acids [...] provider. Influenza A RT-PCR (test code = 63329-7) Negative Negative The Flu A target nucleic acids are not detected in this specimen. Influenza B RT-PCR (test code = 96878-9) Negative Negative The Flu B target nucleic acids are not detected in this specimen. RSV by RT-PCR (test code = 57487-2) Negative Negative The RSV target nucleic acids [...] the Act. Fact Sheet for Healthcare Providers:https://w [employer]/Docu ments/Xpert%20Xpres s%20SARS%20CoV-2/Fa ct%20Sheets/302-390 2%24XPQU-UOE-1%20HE ALTHCARE%20PROVIDER S%20FACT%20SHEET.pd f Fact Sheet for Healthcare Patients:https://[employer]/Docum ents/Xpert%20Xpress %20SARS%20Cov-2/Fac t%20Sheets/302-3801 %89PUPP-FQL-1%20PAT IENT%20FACT%20SHEET .pdf Lab Interpretation (test code = 16297-6) [facility] [id number] 12:18:09* Test Item Value Reference Range Interpretation Comments SARS-COV2/RT-PCR (test code = 81707-1) Negative Negative The SARS-CoV-2 target nucleic acids [...] provider. Influenza A RT-PCR (test code = 29871-4) Negative Negative The Flu A target nucleic acids are not detected in this specimen. Influenza B RT-PCR (test code = 06657-2) Negative Negative The Flu B target nucleic acids are not detected in this specimen. RSV by RT-PCR (test code = 27594-0) Negative Negative The RSV target nucleic acids [...] the Act. Fact Sheet for Healthcare Providers:https://w [employer]/Docu ments/Xpert%20Xpres s%20SARS%20CoV-2/Fa ct%20Sheets/302-390 2%85KXJD-RJI-9%20HE ALTHCARE%20PROVIDER S%20FACT%20SHEET.pd f Fact Sheet for Healthcare Patients:https://ww [employer]/Docum ents/Xpert%20Xpress %20SARS%20Cov-2/Fac t%20Sheets/302-3801 %14EWKY-GEM-2%20PAT IENT%20FACT%20SHEET .pdf Lab Interpretation (test code = 26195-7) [facility] [id number] 12:18:09* Test Item Value Reference Range Interpretation Comments SARS-COV2/RT-PCR (test code = 56575-2) Negative Negative The SARS-CoV-2 target nucleic acids [...] provider. Influenza A RT-PCR (test code = 55624-4) Negative Negative The Flu A target nucleic acids are not detected in this specimen. Influenza B RT-PCR (test code = 40553-6) Negative Negative The Flu B target nucleic acids are not detected in this specimen. RSV by RT-PCR (test code = 26076-8) Negative Negative The RSV target nucleic acids [...] SARS-CoV-2/Flu/RSV by their healthcare provider. Results from [facility] Xpert Xpress SARS-CoV-2/Flu/RSV test should be [...] the Act. Fact Sheet for Healthcare Providers:https://w [employer]/Docu ments/Xpert%20Xpres s%20SARS%20CoV-2/Fa ct%20Sheets/302-390 2%70OKHT-YNO-5%20HE ALTHCARE%20PROVIDER S%20FACT%20SHEET.pd f Fact Sheet for Healthcare Patients:https://[employer]/Docum ents/Xpert%20Xpress %20SARS%20Cov-2/Fac t%20Sheets/302-3801 %61SKBQ-MFM-4%20PAT IENT%20FACT%20SHEET .pdf Lab Interpretation (test code = 40114-5) [facility]V [id number] 12:18:09* Test Item Value Reference Range Interpretation Comme nts SARS-COV2/RT-PCR (test code = 0444746) Negative Negative The SARS-CoV-2 t arget nucleic [...] provider. INFLUENZA A RT-PCR (test code = 2895839) Negative Negative The Flu A target nucleic acids are not detected in this specimen. INFLUENZA B RT-PCR (test code = 2884418) Negative Negative The Flu B target nucleic acids are not detected in this specimen. RSV RT-PCR (test code = 9690035) Negative Negative The RSV target n ucleic [...] SARS-CoV-2/Flu/RSV by their healthcare provider. Results from [facility] Xpert Xpress SARS-CoV-2/Flu/RSV test should be [...] 564(g) of the Act.Fact Sheet for Healthcare Providers:https://www.Prevacus/Documents/Xpert%20Xpress%20SARS%20CoV-2/Fact%2 0Sheets/302-3902%36AOWT-UUS-7%20HEALTHCARE%20PROVIDERS%20FACT%20SHEET.pdfFact Sheet for Healthcare Patients:https://ww w.Prevacus/Documents/Xpert%20Xpress%20SARS%20Cov-2/Fact%20Sheets/302-3801%20S ARS-COV-2%20PATIENT%20FACT%20SHEET.pdfPOCT-GLUCOSE [id number] 11:08:35* Test Item Value Reference Range Interpretation Comme nts POC-GLUCOSE METER (BEAKER) (test code = 1538) 111 mg/dL 70-110 H : TESTED AT [facility] [address] [facility], [address]: Electronics Tech/Pie Crimping Machine Operator ID = [id number] for UrielTramaine montgomery POCT-GLUCOSE [id number] 08:16:42* Test Item Value Reference Range Interpretation Comme nts POC-GLUCOSE METER (BEAKER) (test code = 1538) 108 mg/dL 70-110 : TESTED AT [facility] [address] [facility], [address]: Electronics Tech/Pie Crimping Machine Operator ID = [id number] for Beata Vargas MR spine lumbar without IV [id number] 07:58:49MR LUMBAR SPINE WITHOUT IV CONTRAST, MR THORACIC SPINE WITHOUT IVCONTRAST, MR CERVICAL SPINE WITHOUT IV CONTRAST INDICATION: Myelopathy, acute or progressive TECHNIQUE: Multiplanar, multisequence noncontrast MR images of thecervical, thoracic, and lumbar spine were obtained. COMPARISON: MRI lumbar,06/13/2023 and 06/12/2023 CT cervical spine FINDINGS:Cervical Spine: The craniocervical junction isnormal. The vertebral bodies have normal height, alignment, and signalintensity. Posterior changes from anterior cervical discectomy fusion at C3-C7 STIR hyperintensity seen within the cord at the C3-C4 level Paraspinalsoft tissues are unremarkable. C2-C3: Moderate spinal canal stenosis and facet arthropathy C3-C4: Moderate to severe spinal canal stenosis and mild to moderatebilateral neural foraminal stenosis C4-C5: No significant spinal canal or neural foraminal stenosis C5-C6: No significantspinal canal or neural foraminal stenosis C6-C7: Ligamentum flavum buckling with mild to moderate spinal canalstenosis C7-T1: No significant spinal canal or neural foraminal stenosis Thoracic spine: The vertebral bodies have normal height, alignment, and signalintensity. Mild to moderate spondylosis and facet arthropathy are present withinthe spine. Posterior ligament ossifications at the calcifications at E80-N89gxrgqat moderate spinal canal stenosisPosterior disc osteophyte at the T11-T12 level causing mild spinal canalstenosis The spinal cord is normal in caliber and signal intensity. There is no significant foraminal or spinal canal stenosis. 2.1 x 2.3 cm left adrenal nodule, incompletely characterized Paraspinal soft tissues are unremarkable. Lumbar spine: Postoperative changes from posterior decompression at the L3 and G1jhohzm. 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 The conus medullaris terminates at the L1 level. Paraspinal soft tissue stuctures are unremarkable. Evaluation of the individual levels demonstrates:L1/L2: No significant [...] and facet arthropathy with moderatebilateral neural foraminal stenosisCHI [facility] CenterMR spine lumbar without IV [id number] 07:58:49MR LUMBAR SPINE WITHOUT IV CONTRAST, MR THORACIC SPINE WITHOUT IVCONTRAST, MR CERVICAL SPINE WITHOUT IV CONTRAST INDICATION: Myelopathy, acute or progressive TECHNIQUE: Multiplanar, multisequence nonc ontrast MR images of thecervical, thoracic, and lumbar spine were obtained. COMPARISON: MRI lumbar,06/13/2023 and 06/12/2023 CT cervical spine FINDINGS:Cervical Spine: The craniocervical junction isnormal. The vertebral bodies have normal height, alignment, and signalintensity. Posterior changes f rom anterior cervical discectomy fusion at C3-C7 STIR hyperintensity seen within the cord at the C3-C4 level Paraspinalsoft tissues are unremarkable. C2-C3: Moderate spinal canal stenosis and facet arthropathy C3-C4: Moderate to severe spinal canal stenosis and mild to moderatebilateral neural foraminal stenosis C4-C5: No significant spinal canal or neural foraminal stenosis C5-C6: No significantspinal canal or neural foraminal stenosis C6-C7: Ligamentum flavum buckling with mild to moderate spinal canalstenosis C7-T1: No significant spinal canal or neural foraminal stenosis Thoracic spine: The vertebral bodies have normal height, alignment, and signalintensity. Mild to moderate spondylosis and facet arthropathy are present withinthe spine. Posterior ligament ossifications at the calcifications at W19-O42cfpvkqg moderate spinal canal stenosisPosterior disc osteophyte at the T11-T12 level causing mild spinal canalstenosis The spinal cord is normal in caliber and signal intensity. There is no significant foraminal or spinal canal stenosis. 2.1 x 2.3 cm left adrenal nodule, incompletely characterized Paraspinal soft tissues are unremarkable. Lumbar spine: Postoperative changes from posterior decompression at the L3 and I1xxzojq. 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 The conus medullaris terminates at the L1 level. Paraspinal soft tissue stuctures are unremarkable. Evaluation of the individual levels demonstrates:L1/L2: No significant [...] and facet arthropathy with moderatebilateral neural foraminal stenosisCHI [facility]lake Outpatient Medical CenterMR thoracic spine without IV [id number] 07:58:49MR LUMBAR SPINE WITHOUT IV CONTRAST, MR THORACIC SPINE WITHOUT IVCONTRAST, MR CERVICAL SPINE WITHOUT IV CONTRAST INDICATION: Myelopathy, acute or progressive TECHNIQUE: Multiplanar, multisequence nonc ontrast MR images of thecervical, thoracic, and lumbar spine were obtained. COMPARISON: MRI lumbar,06/13/2023 and 06/12/2023 CT cervical spine FINDINGS:Cervical Spine: The craniocervical junction isnormal. The vertebral bodies have normal height, alignment, and signalintensity. Posterior changes f rom anterior cervical discectomy fusion at C3-C7 STIR hyperintensity seen within the cord at the C3-C4 level Paraspinalsoft tissues are unremarkable. C2-C3: Moderate spinal canal stenosis and facet arthropathy C3-C4: Moderate to severe spinal canal stenosis and mild to moderatebilateral neural foraminal stenosis C4-C5: No significant spinal canal or neural foraminal stenosis C5-C6: No significantspinal canal or neural foraminal stenosis C6-C7: Ligamentum flavum buckling with mild to moderate spinal canalstenosis C7-T1: No significant spinal canal or neural foraminal stenosis Thoracic spine: The vertebral bodies have normal height, alignment, and signalintensity. Mild to moderate spondylosis and facet arthropathy are present withinthe spine. Posterior ligament ossifications at the calcifications at A31-P57yhpqgjg moderate spinal canal stenosisPosterior disc osteophyte at the T11-T12 level causing mild spinal canalstenosis The spinal cord is normal in caliber and signal intensity. There is no significant foraminal or spinal canal stenosis. 2.1 x 2.3 cm left adrenal nodule, incompletely characterized Paraspinal soft tissues are unremarkable. Lumbar spine: Postoperative changes from posterior decompression at the L3 and Y5zjltzs. 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 The conus medullaris terminates at the L1 level. Paraspinal soft tissue stuctures are unremarkable. Evaluation of the individual levels demonstrates:L1/L2: No significant [...] and facet arthropathy with moderatebilateral neural foraminal stenosisCHI [facility]lake [facility]patient Medical CenterMR thoracic spine without IV [id number] 07:58:49MR LUMBAR SPINE WITHOUT IV CONTRAST, MR THORACIC SPINE WITHOUT IVCONTRAST, MR CERVICAL SPINE WITHOUT IV CONTRAST INDICATION: Myelopathy, acute or progressive TECHNIQUE: Multiplanar, multisequence nonc ontrast MR images of thecervical, thoracic, and lumbar spine were obtained. COMPARISON: MRI lumbar,06/13/2023 and 06/12/2023 CT cervical spine FINDINGS:Cervical Spine: The craniocervical junction isnormal. The vertebral bodies have normal height, alignment, and signalintensity. Posterior changes f rom anterior cervical discectomy fusion at C3-C7 STIR hyperintensity seen within the cord at the C3-C4 level Paraspinalsoft tissues are unremarkable. C2-C3: Moderate spinal canal stenosis and facet arthropathy C3-C4: Moderate to severe spinal canal stenosis and mild to moderatebilateral neural foraminal stenosis C4-C5: No significant spinal canal or neural foraminal stenosis C5-C6: No significantspinal canal or neural foraminal stenosis C6-C7: Ligamentum flavum buckling with mild to moderate spinal canalstenosis C7-T1: No significant spinal canal or neural foraminal stenosis Thoracic spine: The vertebral bodies have normal height, alignment, and signalintensity. Mild to moderate spondylosis and facet arthropathy are present withinthe spine. Posterior ligament ossifications at the calcifications at C07-Q21uvsupus moderate spinal canal stenosisPosterior disc osteophyte at the T11-T12 level causing mild spinal canalstenosis The spinal cord is normal in caliber and signal intensity. There is no significant foraminal or spinal canal stenosis. 2.1 x 2.3 cm left adrenal nodule, incompletely characterized Paraspinal soft tissues are unremarkable. Lumbar spine: Postoperative changes from posterior decompression at the L3 and Q7zlkxva. 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 The conus medullaris terminates at the L1 level. Paraspinal soft tissue stuctures are unremarkable. Evaluation of the individual levels demonstrates:L1/L2: No significant [...] and facet arthropathy with moderatebilateral neural foraminal stenosisCHI [facility] CenterMR spine cervical without IV [id number] 07:58:49MR LUMBAR SPINE WITHOUT IV CONTRAST, MR THORACIC SPINE WITHOUT IVCONTRAST, MR CERVICAL SPINE WITHOUT IV CONTRAST INDICATION: Myelopathy, acute or progressive TECHNIQUE: Multiplanar, multisequence nonc ontrast MR images of thecervical, thoracic, and lumbar spine were obtained. COMPARISON: MRI lumbar,06/13/2023 and 06/12/2023 CT cervical spine FINDINGS:Cervical Spine: The craniocervical junction isnormal. The vertebral bodies have normal height, alignment, and signalintensity. Posterior changes f rom anterior cervical discectomy fusion at C3-C7 STIR hyperintensity seen within the cord at the C3-C4 level Paraspinalsoft tissues are unremarkable. C2-C3: Moderate spinal canal stenosis and facet arthropathy C3-C4: Moderate to severe spinal canal stenosis and mild to moderatebilateral neural foraminal stenosis C4-C5: No significant spinal canal or neural foraminal stenosis C5-C6: No significantspinal canal or neural foraminal stenosis C6-C7: Ligamentum flavum buckling with mild to moderate spinal canalstenosis C7-T1: No significant spinal canal or neural foraminal stenosis Thoracic spine: The vertebral bodies have normal height, alignment, and signalintensity. Mild to moderate spondylosis and facet arthropathy are present withinthe spine. Posterior ligament ossifications at the calcifications at N10-P16zjwplum moderate spinal canal stenosisPosterior disc osteophyte at the T11-T12 level causing mild spinal canalstenosis The spinal cord is normal in caliber and signal intensity. There is no significant foraminal or spinal canal stenosis. 2.1 x 2.3 cm left adrenal nodule, incompletely characterized Paraspinal soft tissues are unremarkable. Lumbar spine: Postoperative changes from posterior decompression at the L3 and S1hdxubk. 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 The conus medullaris terminates at the L1 level. Paraspinal soft tissue stuctures are unremarkable. Evaluation of the individual levels demonstrates:L1/L2: No significant [...] and facet arthropathy with moderatebilateral neural foraminal stenosisCH[facility] CenterMR spine cervical without IV [id number] 07:58:49MR LUMBAR SPINE WITHOUT IV CONTRAST, MR THORACIC SPINE WITHOUT IVCONTRAST, MR CERVICAL SPINE WITHOUT IV CONTRAST INDICATION: Myelopathy, acute or progressive TECHNIQUE: Multiplanar, multisequence nonc ontrast MR images of thecervical, thoracic, and lumbar spine were obtained. COMPARISON: MRI lumbar,06/13/2023 and 06/12/2023 CT cervical spine FINDINGS:Cervical Spine: The craniocervical junction isnormal. The vertebral bodies have normal height, alignment, and signalintensity. Posterior changes f rom anterior cervical discectomy fusion at C3-C7 STIR hyperintensity seen within the cord at the C3-C4 level Paraspinalsoft tissues are unremarkable. C2-C3: Moderate spinal canal stenosis and facet arthropathy C3-C4: Moderate to severe spinal canal stenosis and mild to moderatebilateral neural foraminal stenosis C4-C5: No significant spinal canal or neural foraminal stenosis C5-C6: No significantspinal canal or neural foraminal stenosis C6-C7: Ligamentum flavum buckling with mild to moderate spinal canalstenosis C7-T1: No significant spinal canal or neural foraminal stenosis Thoracic spine: The vertebral bodies have normal height, alignment, and signalintensity. Mild to moderate spondylosis and facet arthropathy are present withinthe spine. Posterior ligament ossifications at the calcifications at [id number] moderate spinal canal stenosisPosterior disc osteophyte at the T11-T12 level causing mild spinal canalstenosis The spinal cord is normal in caliber and signal intensity. There is no significant foraminal or spinal canal stenosis. 2.1 x 2.3 cm left adrenal nodule, incompletely characterized Paraspinal soft tissues are unremarkable. Lumbar spine: Postoperative changes from posterior decompression at the L3 and S4amhtnb. 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 The conus medullaris terminates at the L1 level. Paraspinal soft tissue stuctures are unremarkable. Evaluation of the individual levels demonstrates:L1/L2: No significant [...] and facet arthropathy with moderatebilateral neural foraminal stenosisCH[facility] Medical CenterMR CERVICAL SPINE WITHOUT IV [id number] 07:58:49 [facility] : 1970 Sex: [...] signalintensity.Posterior changes fromanterior cervical discectomy fusion at C3- C7STIR hyperintensity seen within the cord at the C3-C4 level Paraspinalsoft tissues are unremarkable.C2-C3: Moderate spinal canal stenosis and facet arthropathyC3-C4: Moderate to severe spinal canal stenosis and mild to moderatebilateral neural foraminal stenosisC4-C5: No significant spinal canal or neural foraminal stenosisC5-C6: No significant spinal canal or neural foraminal stenosisC6-C7: Ligamentum flavum buckling with mild to moderate spinal canal stenosis C7-T1: No significant spinal canal or neural foraminal stenosisThoracic spine:The vertebral bodies have normal height, alignment, and signalintensity.Mild to moderate spondylosis and facet arthropathy are present withinthe spine.Posterior ligament ossifications at the calcifications at T10- G95yfipudf moderate spinal canal stenosisPosterior disc osteophyte at the T11- T12 level causing mild spinal canalstenosisThe spinal cord is normal in caliber and signal intensity. There is no significant foraminal or spinal canal stenosis.2.1 x 2.3 cm left adrenal nodule, incompletely characterizedParaspinal soft tissues are unremarkable.Lumbar spine:Postoperative changes from posterior decompression at the L3 and I0omoxyp. A 1.3 x 1.5 cm (AP by [...] Signed By: Maxim Sultana09/04/2023 08:00 CDTWorkstation Name: [id number] THORACIC SPINE WITHOUT IV [id number] 07:58:49 [facility] : 1970 Sex: [...] signalintensity.Posterior changes fromanterior cervical discectomy fusion at C3- C7STIR hyperintensity seen within the cord at the C3-C4 level Paraspinalsoft tissues are unremarkable.C2-C3: Moderate spinal canal stenosis and facet arthropathyC3-C4: Moderate to severe spinal canal stenosis and mild to moderatebilateral neural foraminal stenosisC4-C5: No significant spinal canal or neural foraminal stenosisC5-C6: No significant spinal canal or neural foraminal stenosisC6-C7: Ligamentum flavum buckling with mild to moderate spinal canal stenosis C7-T1: No significant spinal canal or neural foraminal stenosisThoracic spine:The vertebral bodies have normal height, alignment, and signalintensity.Mild to moderate spondylosis and facet arthropathy are present withinthe spine.Posterior ligament ossifications at the calcifications at T10- M98bmvslin moderate spinal canal stenosisPosterior disc osteophyte at the T11- T12 level causing mild spinal canalstenosisThe spinal cord is normal in caliber and signal intensity. There is no significant foraminal or spinal canal stenosis.2.1 x 2.3 cm left adrenal nodule, incompletely characterizedParaspinal soft tissues are unremarkable.Lumbar spine:Postoperative changes from posterior decompression at the L3 and Z5qsqmym. A 1.3 x 1.5 cm (AP by [...] Signed By: Maxim Sultana09/04/2023 08:00 CDTWorkstation Name: [id number] LUMBAR SPINE WITHOUT IV [id number] 07:58:49 [facility] : 1970 Sex: [...] signalintensity.Posterior changes fromanterior cervical discectomy fusion at C3- C7STIR hyperintensity seen within the cord at the C3-C4 level Paraspinalsoft tissues are unremarkable.C2-C3: Moderate spinal canal stenosis and facet arthropathyC3-C4: Moderate to severe spinal canal stenosis and mild to moderatebilateral neural foraminal stenosisC4-C5: No significant spinal canal or neural foraminal stenosisC5-C6: No significant spinal canal or neural foraminal stenosisC6-C7: Ligamentum flavum buckling with mild to moderate spinal canal stenosis C7-T1: No significant spinal canal or neural foraminal stenosisThoracic spine:The vertebral bodies have normal height, alignment, and signalintensity.Mild to moderate spondylosis and facet arthropathy are present withinthe spine.Posterior ligament ossifications at the calcifications at T10- I90gbsqxfp moderate spinal canal stenosisPosterior disc osteophyte at the T11- T12 level causing mild spinal canalstenosisThe spinal cord is normal in caliber and signal intensity. There is no significant foraminal or spinal canal stenosis.2.1 x 2.3 cm left adrenal nodule, incompletely characterizedParaspinal soft tissues are unremarkable.Lumbar spine:Postoperative changes from posterior decompression at the L3 and W7cwsjwa. A 1.3 x 1.5 cm (AP by [...] Signed By: Maxim Sultana09/04/2023 08:00 CDTWorkstation Name: [id number] 07:46:14 * Test Item Value Reference Range Interpretation Comme nts FERRITIN (BEAKER) (test code = 361) 31.77 ng/mL 5.00-275.00 Electronics Tech ID - hgIRON, TIBC, % SAT. (WITHOUT FERRITIN)2023-09-04 07:24:52* Test Item Value Reference Range Interpretation Comme nts IRON (BEAKER) (test code = 547) 22.0 ug/dL 40.0-160.0 L TOTAL IRON BINDING CAPACITY (BEAKER) (test code = 769) 369 ug/dL 250-450 IRON % SATURATION (2) (BEAKE R) (test code = 2590) 6 % 20-55 L Electronics Tech ID - hgCT spine thoracic without IV [id number] 05:42:45EXAM: CT THORACIC SPINE WITHOUT IV CONTRAST, CT LUMBAR SPINE WITHOUT IVCONTRAST, 09/04/2023 5:19 AM CLINICAL: Mid-back pain, compression fracture suspected TECHNIQUE: CT of the thoracic and lumbar spine was performed without theadministration of intravenous contrast. Multiplanar reformatted imagesare provided for interpretation. Dose modulation, iterativereconstruction, and/or weight based adjustment of the mA/kV was utilizedto reduce the radiation dose to as low as reasonably achievable. COMPARISON: Thoracic and lumbar spine MRI, 03/30/2023. FINDINGS: Thoracic spine: Bones/alignment: No acute fracture or traumatic malalignment. Vertebralbody heights and AP alignment are maintained. Partiallyseen cervicalspine ACDF hardware. Degenerative changes: Mild multilevel the anterior bone spurring.Nobony canal stenosis. Mild to moderate left and mild right neuralforaminal stenosis from T9-10 through T11-12. Mild bilateral facethypertrophy at T11-12. Intervertebral disc height loss with vacuumph enomenon at T11-12. Soft tissues: No paraspinal mass. Incidental note of gastroesophagealreflux. Annular mitral valvular calcifications and left-sided coronaryartery calcifications are present. Lumbar spine: Bones/alignment: Age- indeterminate nondisplaced fracture of the C8yjcpiwpeh elements, predominantly involving the lamina and pinusprocess.. Vertebral body heights and AP alignment are maintained. Degenerative change: T12-L1: Small anterior disc osteophyte complex. No evidence of canal orneural foraminal narrowing.L1-2: Minimal anterior bone spurring at the endplates. Mild bilateralfacet hypertrophy. No canal or neural foraminal narrowing.L2-3: Mild bilateral facet hypertrophy. Similar appearance of [place]-based posterior disc bulge with canal narrowing to approximately 6mm, moderate right and mild left neural foraminal narrowing.L3-4: Mild to moderate bilateral facet hypertrophy. Intervertebral discspace narrowing with vacuum phenomenon and subchondral sclerotic andcystic changes at the endplates. There is a broad-based moderateposterior disc bulge with associated moderate to severe bilateral neuralforaminal narrowing. Status post surgical decompression at this levelwith a patent spinal canal.L4-5: Intervertebral disc space narrowing with vacuum phenomenon andsubchondral scle rotic and cystic changes at the endplates. Moderatebilateral facet hypertrophy. Moderate to severe bilateral neuralforaminal stenosis.L5-S1: Mild broad-based posterior disc bulge with no significant canalor neural foraminal stenosis. Soft tissues: Benign 2.7 cm left adrenal adenoma. Moderateatherosclerotic plaque. No paraspinal mass. Postoperative changes in themidline posterior lumbar soft tissues.[facility]CT [facility] without IV [id number] 05:42:45EXAM: CT THORACIC SPINE WITHOUT IV CONTRAST, CT LUMBAR SPINE WITHOUT IVCONTRAST, 09/04/2023 5:19 AM CLINICAL: Mid-back pain, compression fracture suspected TECHNIQUE: CT of the thoracic and lumbar spine was performed without theadministration of intravenous contrast. Multiplanar reformatted imagesare provided for interpretation. Dose modulation, iterativereconstruction, and/or weight based adjustment of the mA/kV was utilizedto reduce the radiation dose to as low as reasonably achievable. COMPARISON: Thoracic and lumbar spine MRI, 03/30/2023. FINDINGS: Thoracic spine: Bones/alignment: No acute fracture or traumatic malalignment. Vertebralbody heights and AP alignment are maintained. Partiallyseen cervicalspine ACDF hardware. Degenerative changes: Mild multilevel the anterior bone spurring.Nobony canal stenosis. Mild to moderate left and mild right neuralforaminal stenosis from T9-10 through T11-12. Mild bilateral facethypertrophy at T11-12. Intervertebral disc height loss with vacuumph enomenon at T11-12. Soft tissues: No paraspinal mass. Incidental note of gastroesophagealreflux. Annular mitral valvular calcifications and left-sided coronaryartery calcifications are present. Lumbar spine: Bones/alignment: Age- indeterminate nondisplaced fracture of the G7szfsmswof elements, predominantly involving the lamina and pinusprocess.. Vertebral body heights and AP alignment are maintained. Degenerative change: T12-L1: Small anterior disc osteophyte complex. No evidence of canal orneural foraminal narrowing.L1-2: Minimal anterior bone spurring at the endplates. Mild bilateralfacet hypertrophy. No canal or neural foraminal narrowing.L2-3: Mild bilateral facet hypertrophy. Similar appearance of abroad-based posterior disc bulge with canal narrowing to approximately 6mm, moderate right and mild left neural foraminal narrowing.L3-4: Mild to moderate bilateral facet hypertrophy. Intervertebral discspace narrowing with vacuum phenomenon and subchondral sclerotic andcystic changes at the endplates. There is a broad-based moderateposterior disc bulge with associated moderate to severe bilateral neuralforaminal narrowing. Status post surgical decompression at this levelwith a patent spinal canal.L4-5: Intervertebral disc space narrowing with vacuum phenomenon andsubchondral scle rotic and cystic changes at the endplates. Moderatebilateral facet hypertrophy. Moderate to severe bilateral neuralforaminal stenosis.L5-S1: Mild broad-based posterior disc bulge with no significant canalor neural foraminal stenosis. Soft tissues: Benign 2.7 cm left adrenal adenoma. Moderateatherosclerotic plaque. No paraspinal mass. Postoperative changes in themidline posterior lumbar soft tissues.[facility] HospitalCT [facility] without IV contrast 2023-09-04 05:42:45EXAM: CT THORACIC SPINE WITHOUT IV CONTRAST, CT LUMBAR SPINE WITHOUT IVCONTRAST, 09/04/2023 5:19 AM CLINICAL: Mid-back pain, compression fracture suspected TECHNIQUE: CT of the thoracic and lumbar spine was performed without theadministration of intravenous contrast. Multiplanar reformatted imagesare provided for interpretation. Dose modulation, iterativereconstruction, and/or weight based adjustment of the mA/kV was utilizedto reduce the radiation dose to as low as reasonably achievable. COMPARISON: Thoracic and lumbar spine MRI, 03/30/2023. FINDINGS: Thoracic spine: Bones/alignment: No acute fracture or traumatic malalignment. Vertebralbody heights and AP alignment are maintained. Partiallyseen cervicalspine ACDF hardware. Degenerative changes: Mild multilevel the anterior bone spurring.Nobony canal stenosis. Mild to moderate left and mild right neuralforaminal stenosis from T9-10 through T11-12. Mild bilateral facethypertrophy at T11-12. Intervertebral disc height loss with vacuumph enomenon at T11-12. Soft tissues: No paraspinal mass. Incidental note of gastroesophagealreflux. Annular mitral valvular calcifications and left-sided coronaryartery calcifications are present. Lumbar spine: Bones/alignment: Age- indeterminate nondisplaced fracture of the N6wwhgcktqy elements, predominantly involving the lamina and pinusprocess.. Vertebral body heights and AP alignment are maintained. Degenerative change: T12-L1: Small anterior disc osteophyte complex. No evidence of canal orneural foraminal narrowing.L1-2: Minimal anterior bone spurring at the endplates. Mild bilateralfacet hypertrophy. No canal or neural foraminal narrowing.L2-3: Mild bilateral facet hypertrophy. Similar appearance of abroad-based posterior disc bulge with canal narrowing to approximately 6mm, moderate right and mild left neural foraminal narrowing.L3-4: Mild to moderate bilateral facet hypertrophy. Intervertebral discspace narrowing with vacuum phenomenon and subchondral sclerotic andcystic changes at the endplates. There is a broad-based moderateposterior disc bulge with associated moderate to severe bilateral neuralforaminal narrowing. Status post surgical decompression at this levelwith a patent spinal canal.L4-5: Intervertebral disc space narrowing with vacuum phenomenon andsubchondral scle rotic and cystic changes at the endplates. Moderatebilateral facet hypertrophy. Moderate to severe bilateral neuralforaminal stenosis.L5-S1: Mild broad-based posterior disc bulge with no significant canalor neural foraminal stenosis. Soft tissues: Benign 2.7 cm left adrenal adenoma. Moderateatherosclerotic plaque. No paraspinal mass. Postoperative changes in themidline posterior lumbar soft tissues.[facility] HospitalCT [facility] without IV [id number] 05:42:45EXAM: CT THORACIC SPINE WITHOUT IV CONTRAST, CT LUMBAR SPINE WITHOUT IVCONTRAST, 09/04/2023 5:19 AM CLINICAL: Mid-back pain, compression fracture suspected TECHNIQUE: CT of the thoracic and lumbar spine was performed without theadministration of intravenous contrast. Multiplanar reformatted imagesare provided for interpretation. Dose modulation, iterativereconstruction, and/or weight based adjustment of the mA/kV was utilizedto reduce the radiation dose to as low as reasonably achievable. COMPARISON: Thoracic and lumbar spine MRI, 03/30/2023. FINDINGS: Thoracic spine: Bones/alignment: No acute fracture or traumatic malalignment. Vertebralbody heights and AP alignment are maintained. Partiallyseen cervicalspine ACDF hardware. Degenerative changes: Mild multilevel the anterior bone spurring.Nobony canal stenosis. Mild to moderate left and mild right neuralforaminal stenosis from T9-10 through T11-12. Mild bilateral facethypertrophy at T11-12. Intervertebral disc height loss with vacuumph enomenon at T11-12. Soft tissues: No paraspinal mass. Incidental note of gastroesophagealreflux. Annular mitral valvular calcifications and left-sided coronaryartery calcifications are present. Lumbar spine: Bones/alignment: Age- indeterminate nondisplaced fracture of the X8pcwbqhorq elements, predominantly involving the lamina and pinusprocess.. Vertebral body heights and AP alignment are maintained. Degenerative change: T12-L1: Small anterior disc osteophyte complex. No evidence of canal orneural foraminal narrowing.L1-2: Minimal anterior bone spurring at the endplates. Mild bilateralfacet hypertrophy. No canal or neural foraminal narrowing.L2-3: Mild bilateral facet hypertrophy. Similar appearance of abroad-based posterior disc bulge with canal narrowing to approximately 6mm, moderate right and mild left neural foraminal narrowing.L3-4: Mild to moderate bilateral facet hypertrophy. Intervertebral discspace narrowing with vacuum phenomenon and subchondral sclerotic andcystic changes at the endplates. There is a broad-based moderateposterior disc bulge with associated moderate to severe bilateral neuralforaminal narrowing. Status post surgical decompression at this levelwith a patent spinal canal.L4-5: Intervertebral disc space narrowing with vacuum phenomenon andsubchondral scle rotic and cystic changes at the endplates. Moderatebilateral facet hypertrophy. Moderate to severe bilateral neuralforaminal stenosis.L5-S1: Mild broad-based posterior disc bulge with no significant canalor neural foraminal stenosis. Soft tissues: Benign 2.7 cm left adrenal adenoma. Moderateatherosclerotic plaque. No paraspinal mass. Postoperative changes in themidline posterior lumbar soft tissues.[facility] HospitalCT L[facility] WITHOUT IV [id number] 05:42:45[facility] : 1970 Sex: [...] spine:Bones/alignment: Age- indeterminate nondisplaced fracture of the T0wwblrdxjj elements, predominantly i nvolving the lamina and [...] and subchondral sclerotic andcystic changes at the endplates. There is a broad-based moderateposterior disc bulge [...] Signed By: Suzan Weaver09/04/2023 05:45 CDTWorkstation Name: [id number] THORACIC SPINE WITHOUT IV [id number] 05:42:45 [facility] YUE HEATHERGRACIELA MCCABE : [...] spine:Bones/alignment: Age- indeterminate nondisplaced fracture of the O9fhtsfyfjt elements, predominantly i nvolving the lamina and [...] and subchondral sclerotic andcystic changes at the endplates. There is a broad-based moderateposterior disc bulge [...] Signed By: Suzan Weaver09/04/2023 05:45 CDTWorkstation Name: [id number] 2023-09-04 04:44:34* Test Item Value Reference Range Interpretation Comme nts FIBRINOGEN LEVEL (BEAKER) (t est code = 658) 410 mg/dl 225-434 Urinalysis without [id number] 03:58:52* Test Item Value Reference Range Interpretation Comme nts Color, UA (test code = 5778-6) Light Yellow Clarity, UA (test code = 5767-9) Hazy Specific [place], UA (test code = 5811-5) 1.017 1.001-1.035 pH, UA (test code = 5803-2) 6.0 5.0-8.0 Protein, UA (test code = 23313-3) 10 mg/dL Negative A Glucose, UA (test code = 365) Negative Negative Ketones, UA (test code = 2514-8) Trace Negative A Bilirubin, UA (test code = 11456-0) Negative Negative Blood, UA (test code = 06197-2) Trace Negative A Nitrite, UA (test code = 5802-4) Negative Negative Leukocytes, UA (test code = 5799-2) Negative Negative Urobilinogen, UA (test code = 68486-6) 0.2 0.2-1.0 Specimen Source (test code = 2795) LYDNSAY (test code = LYNDSAY) Electronics Tech ID - [auto]Electronics Tech ID - tech Lab Interpretation (test code = 07108-5) Abnormal [facility] CenterUrinalysis without [id number] 03:58:52* Test Item Value Reference Range Interpretation Comme nts Color, UA (test code = 5778-6) Light Yellow Clarity, UA (test code = 5767-9) Hazy Specific [place], UA (test code = 5811-5) 1.017 1.001-1.035 pH, UA (test code = 5803-2) 6.0 5.0-8.0 Protein, UA (test code = 88886-9) 10 mg/dL Negative A Glucose, UA (test code = 365) Negative Negative Ketones, UA (test code = 2514-8) Trace Negative A Bilirubin, UA (test code = 46228-3) Negative Negative Blood, UA (test code = 41734-2) Trace Negative A Nitrite, UA (test code = 5802-4) Negative Negative Leukocytes, UA (test code = 5799-2) Negative Negative Urobilinogen, UA (test code = 45124-6) 0.2 0.2-1.0 Specimen Source (test code = 2795) LYNDSAY (test code = LYNDSAY) Electronics Tech ID - [auto]Electronics Tech ID - tech Lab Interpretation (test code = 71633-9) [facility] Npwhxykgpfx0545-01-84 03:58:52* Test Item Value Reference Range Interpretation Comme nts Color, UA (test code = 5778-6) Light Yellow Clarity, UA (test code = 5767-9) Hazy Specific [place], UA (test code = 5811-5) 1.017 1.001-1.035 pH, UA (test code = 5803-2) 6.0 5.0-8.0 Protein, UA (test code = 99569-9) 10 mg/dL Negative A Glucose, UA (test code = 365) Negative Negative Ketones, UA (test code = 2514-8) Trace Negative A Bilirubin, UA (test code = 90777-0) Negative Negative Blood, UA (test code = 40198-6) Trace Negative A Nitrite, UA (test code = 5802-4) Negative Negative Leukocytes, UA (test code = 5799-2) Negative Negative Urobilinogen, UA (test code = 47981-6) 0.2 0.2-1.0 Specimen Source (test code = 2795) LYNDSAY (test code = LYNDSAY) Electronics Tech ID - [auto]Electronics Tech ID - tech Lab Interpretation (test code = 46943-2) [facility] Pcbovbrxohb2638-63-93 03:58:52* Test Item Value Reference Range Interpretation Comme nts Color, UA (test code = 5778-6) Light Yellow Clarity, UA (test code = 5767-9) Hazy Specific [place], UA (test code = 5811-5) 1.017 1.001-1.035 pH, UA (test code = 5803-2) 6.0 5.0-8.0 Protein, UA (test code = 16449-6) 10 mg/dL Negative A Glucose, UA (test code = 365) Negative Negative Ketones, UA (test code = 2514-8) Trace Negative A Bilirubin, UA (test code = 51326-1) Negative Negative Blood, UA (test code = 63492-0) Trace Negative A Nitrite, UA (test code = 5802-4) Negative Negative Leukocytes, UA (test code = 5799-2) Negative Negative Urobilinogen, UA (test code = 73567-7) 0.2 0.2-1.0 Specimen Source (test code = 2795) LYNDSAY (test code = LYNDSAY) Electronics Tech ID - [auto]Electronics Tech ID - tech Lab Interpretation (test code = 33793-5) [facility] Aqvfnrqttzu4460-77-21 03:58:52* Test Item Value Reference Range Interpretation Comme nts Color, UA (test code = 5778-6) Light Yellow Clarity, UA (test code = 5767-9) Hazy Specific [place], UA (test code = 5811-5) 1.017 1.001-1.035 pH, UA (test code = 5803-2) 6.0 5.0-8.0 Protein, UA (test code = 52751-6) 10 mg/dL Negative A Glucose, UA (test code = 365) Negative Negative Ketones, UA (test code = 2514-8) Trace Negative A Bilirubin, UA (test code = 72816-3) Negative Negative Blood, UA (test code = 17822-6) Trace Negative A Nitrite, UA (test code = 5802-4) Negative Negative Leukocytes, UA (test code = 5799-2) Negative Negative Urobilinogen, UA (test code = 92135-5) 0.2 0.2-1.0 Specimen Source (test code = 2795) LYNDSAY (test code = LYNDSYA) Electronics Tech ID - [auto]Electronics Tech ID - tech Lab Interpretation (test code = 50453-2) [facility] Xuekffcxpag6264-39-50 03:58:52* Test Item Value Reference Range Interpretation Comme nts Color, UA (test code = 5778-6) Light Yellow Clarity, UA (test code = 5767-9) Hazy Specific [place], UA (test code = 5811-5) 1.017 1.001-1.035 pH, UA (test code = 5803-2) 6.0 5.0-8.0 Protein, UA (test code = 17292-4) 10 mg/dL Negative A Glucose, UA (test code = 365) Negative Negative Ketones, UA (test code = 2514-8) Trace Negative A Bilirubin, UA (test code = 01532-5) Negative Negative Blood, UA (test code = 97789-6) Trace Negative A Nitrite, UA (test code = 5802-4) Negative Negative Leukocytes, UA (test code = 5799-2) Negative Negative Urobilinogen, UA (test code = 20765-2) 0.2 0.2-1.0 Specimen Source (test code = 2795) LYNDSAY (test code = LYNDSAY) Electronics Tech ID - [auto]Electronics Tech ID - tech Lab Interpretation (test code = 00687-4) [facility]normal [facility] Choktgcuqcu8930-18-24 03:58:52* Test Item Value Reference Range Interpretation Comme nts Color, UA (test code = 5778-6) Light Yellow Clarity, UA (test code = 5767-9) Hazy Specific [place], UA (test code = 5811-5) 1.017 1.001-1.035 pH, UA (test code = 5803-2) 6.0 5.0-8.0 Protein, UA (test code = 02557-5) 10 mg/dL Negative A Glucose, UA (test code = 365) Negative Negative Ketones, UA (test code = 2514-8) Trace Negative A Bilirubin, UA (test code = 02459-1) Negative Negative Blood, UA (test code = 34052-1) Trace Negative A Nitrite, UA (test code = 5802-4) Negative Negative Leukocytes, UA (test code = 5799-2) Negative Negative Urobilinogen, UA (test code = 19448-8) 0.2 0.2-1.0 Specimen Source (test code = 2795) LYNDSAY (test code = LYNDSAY) Electronics Tech ID - [auto]Electronics Tech ID - tech Lab Interpretation (test code = 60463-4) [facility]normal [facility] Poxikdccbmj1475-95-77 03:58:52* Test Item Value Reference Range Interpretation Comme nts Color, UA (test code = 5778-6) Light Yellow Clarity, UA (test code = 5767-9) Hazy Specific [place], UA (test code = 5811-5) 1.017 1.001-1.035 pH, UA (test code = 5803-2) 6.0 5.0-8.0 Protein, UA (test code = 02041-1) 10 mg/dL Negative A Glucose, UA (test code = 365) Negative Negative Ketones, UA (test code = 2514-8) Trace Negative A Bilirubin, UA (test code = 75283-7) Negative Negative Blood, UA (test code = 05960-4) Trace Negative A Nitrite, UA (test code = 5802-4) Negative Negative Leukocytes, UA (test code = 5799-2) Negative Negative Urobilinogen, UA (test code = 09193-1) 0.2 0.2-1.0 Specimen Source (test code = 2795) LYNDSAY (test code = LYNDSAY) Electronics Tech ID - [auto]Electronics Tech ID - tech Lab Interpretation (test code = 93973-6) [facility]normal [facility] Fgmshzbidvg7286-62-14 03:58:52* Test Item Value Reference Range Interpretation Comme nts Color, UA (test code = 5778-6) Light Yellow Clarity, UA (test code = 5767-9) Hazy Specific [place], UA (test code = 5811-5) 1.017 1.001-1.035 pH, UA (test code = 5803-2) 6.0 5.0-8.0 Protein, UA (test code = 77348-1) 10 mg/dL Negative A Glucose, UA (test code = 365) Negative Negative Ketones, UA (test code = 2514-8) Trace Negative A Bilirubin, UA (test code = 02016-4) Negative Negative Blood, UA (test code = 14740-0) Trace Negative A Nitrite, UA (test code = 5802-4) Negative Negative Leukocytes, UA (test code = 5799-2) Negative Negative Urobilinogen, UA (test code = 78425-4) 0.2 0.2-1.0 Specimen Source (test code = 2795) LYNDSAY (test code = LYNDSAY) Electronics Tech ID - [auto]Electronics Tech ID - tech Lab Interpretation (test code = 77003-9) [facility]normal [facility] Rjssoveawva6272-83-78 03:58:52* Test Item Value Reference Range Interpretation Comme nts Color, UA (test code = 5778-6) Light Yellow Clarity, UA (test code = 5767-9) Hazy Specific [place], UA (test code = 5811-5) 1.017 1.001-1.035 pH, UA (test code = 5803-2) 6.0 5.0-8.0 Protein, UA (test code = 12217-3) 10 mg/dL Negative A Glucose, UA (test code = 365) Negative Negative Ketones, UA (test code = 2514-8) Trace Negative A Bilirubin, UA (test code = 44798-0) Negative Negative Blood, UA (test code = 02664-9) Trace Negative A Nitrite, UA (test code = 5802-4) Negative Negative Leukocytes, UA (test code = 5799-2) Negative Negative Urobilinogen, UA (test code = 39836-7) 0.2 0.2-1.0 Specimen Source (test code = 2795) LYNDSAY (test code = LYNDSAY) Electronics Tech ID - [auto]Electronics Tech ID - tech Lab Interpretation (test code = 65836-5) [facility]normal [facility] Hmvwfdrbrhu3267-80-45 03:58:52* Test Item Value Reference Range Interpretation Comme nts Color, UA (test code = 5778-6) Light Yellow Clarity, UA (test code = 5767-9) Hazy Specific [place], UA (test code = 5811-5) 1.017 1.001-1.035 pH, UA (test code = 5803-2) 6.0 5.0-8.0 Protein, UA (test code = 95621-8) 10 mg/dL Negative A Glucose, UA (test code = 365) Negative Negative Ketones, UA (test code = 2514-8) Trace Negative A Bilirubin, UA (test code = 55454-3) Negative Negative Blood, UA (test code = 66184-0) Trace Negative A Nitrite, UA (test code = 5802-4) Negative Negative Leukocytes, UA (test code = 5799-2) Negative Negative Urobilinogen, UA (test code = 85577-0) 0.2 0.2-1.0 Specimen Source (test code = 2795) LYNDSAY (test code = LYNDSAY) Electronics Tech ID - [auto]Electronics Tech ID - tech Lab Interpretation (test code = 89971-9) [facility]normal [facility] Wiotrkztuhd0583-33-02 03:58:52* Test Item Value Reference Range Interpretation Comme nts Color, UA (test code = 5778-6) Light Yellow Clarity, UA (test code = 5767-9) Hazy Specific [place], UA (test code = 5811-5) 1.017 1.001-1.035 pH, UA (test code = 5803-2) 6.0 5.0-8.0 Protein, UA (test code = 18930-8) 10 mg/dL Negative A Glucose, UA (test code = 365) Negative Negative Ketones, UA (test code = 2514-8) Trace Negative A Bilirubin, UA (test code = 19438-5) Negative Negative Blood, UA (test code = 77856-2) Trace Negative A Nitrite, UA (test code = 5802-4) Negative Negative Leukocytes, UA (test code = 5799-2) Negative Negative Urobilinogen, UA (test code = 17560-6) 0.2 0.2-1.0 Specimen Source (test code = 2795) LYNDSAY (test code = LYNDSAY) Electronics Tech ID - [auto]Electronics Tech ID - tech Lab Interpretation (test code = 30193-2) [facility]normal [facility] Qieqxkgsrzt2210-10-00 03:58:52* Test Item Value Reference Range Interpretation Comme nts Color, UA (test code = 5778-6) Light Yellow Clarity, UA (test code = 5767-9) Hazy Specific [place], UA (test code = 5811-5) 1.017 1.001-1.035 pH, UA (test code = 5803-2) 6.0 5.0-8.0 Protein, UA (test code = 02519-0) 10 mg/dL Negative A Glucose, UA (test code = 365) Negative Negative Ketones, UA (test code = 2514-8) Trace Negative A Bilirubin, UA (test code = 04632-1) Negative Negative Blood, UA (test code = 51147-5) Trace Negative A Nitrite, UA (test code = 5802-4) Negative Negative Leukocytes, UA (test code = 5799-2) Negative Negative Urobilinogen, UA (test code = 80598-8) 0.2 0.2-1.0 Specimen Source (test code = 2795) LYNDSAY (test code = LYNDSAY) Electronics Tech ID - [auto]Electronics Tech ID - tech Lab Interpretation (test code = 70878-8) [facility]normal [facility] Rosxnqegccn1331-83-55 03:58:52* Test Item Value Reference Range Interpretation Comme nts Color, UA (test code = 5778-6) Light Yellow Clarity, UA (test code = 5767-9) Hazy Specific [place], UA (test code = 5811-5) 1.017 1.001-1.035 pH, UA (test code = 5803-2) 6.0 5.0-8.0 Protein, UA (test code = 54951-4) 10 mg/dL Negative A Glucose, UA (test code = 365) Negative Negative Ketones, UA (test code = 2514-8) Trace Negative A Bilirubin, UA (test code = 67857-3) Negative Negative Blood, UA (test code = 54615-6) Trace Negative A Nitrite, UA (test code = 5802-4) Negative Negative Leukocytes, UA (test code = 5799-2) Negative Negative Urobilinogen, UA (test code = 30677-2) 0.2 0.2-1.0 Specimen Source (test code = 2795) LYNDSAY (test code = LYNDSAY) Electronics Tech ID - [auto]Electronics Tech ID - tech Lab Interpretation (test code = 04414-4) [facility]normal [facility] Gzcbxiubxor1952-74-64 03:58:52* Test Item Value Reference Range Interpretation Comme nts Color, UA (test code = 5778-6) Light Yellow Clarity, UA (test code = 5767-9) Hazy Specific [place], UA (test code = 5811-5) 1.017 1.001-1.035 pH, UA (test code = 5803-2) 6.0 5.0-8.0 Protein, UA (test code = 03809-5) 10 mg/dL Negative A Glucose, UA (test code = 365) Negative Negative Ketones, UA (test code = 2514-8) Trace Negative A Bilirubin, UA (test code = 85292-6) Negative Negative Blood, UA (test code = 91149-7) Trace Negative A Nitrite, UA (test code = 5802-4) Negative Negative Leukocytes, UA (test code = 5799-2) Negative Negative Urobilinogen, UA (test code = 22150-0) 0.2 0.2-1.0 Specimen Source (test code = 2795) LYNDSAY (test code = LYNDSAY) Electronics Tech ID - [auto]Electronics Tech ID - tech Lab Interpretation (test code = 63135-0) [facility] Fnbrvcpovmn8017-88-72 03:58:52* Test Item Value Reference Range Interpretation Comme nts Color, UA (test code = 5778-6) Light Yellow Clarity, UA (test code = 5767-9) Hazy Specific [place], UA (test code = 5811-5) 1.017 1.001-1.035 pH, UA (test code = 5803-2) 6.0 5.0-8.0 Protein, UA (test code = 52213-9) 10 mg/dL Negative A Glucose, UA (test code = 365) Negative Negative Ketones, UA (test code = 2514-8) Trace Negative A Bilirubin, UA (test code = 80435-9) Negative Negative Blood, UA (test code = 16894-8) Trace Negative A Nitrite, UA (test code = 5802-4) Negative Negative Leukocytes, UA (test code = 5799-2) Negative Negative Urobilinogen, UA (test code = 14494-6) 0.2 0.2-1.0 Specimen Source (test code = 2795) LYNDSAY (test code = LYNDSAY) Electronics Tech ID - [auto]Electronics Tech ID - tech Lab Interpretation (test code = 58939-1) [facility]normal [facility] Qbtmzxxpydn3713-36-82 03:58:52* Test Item Value Reference Range Interpretation Comme nts Color, UA (test code = 5778-6) Light Yellow Clarity, UA (test code = 5767-9) Hazy Specific [place], UA (test code = 5811-5) 1.017 1.001-1.035 pH, UA (test code = 5803-2) 6.0 5.0-8.0 Protein, UA (test code = 38880-6) 10 mg/dL Negative A Glucose, UA (test code = 365) Negative Negative Ketones, UA (test code = 2514-8) Trace Negative A Bilirubin, UA (test code = 21493-8) Negative Negative Blood, UA (test code = 71488-3) Trace Negative A Nitrite, UA (test code = 5802-4) Negative Negative Leukocytes, UA (test code = 5799-2) Negative Negative Urobilinogen, UA (test code = 91341-3) 0.2 0.2-1.0 Specimen Source (test code = 2795) LYNDSAY (test code = LYNDSAY) Electronics Tech ID - [auto]Electronics Tech ID - tech Lab Interpretation (test code = 84664-5) [facility]normal [facility] Hnqhvuqifiu2093-23-31 03:58:52* Test Item Value Reference Range Interpretation Comme nts Color, UA (test code = 5778-6) Light Yellow Clarity, UA (test code = 5767-9) Hazy Specific [place], UA (test code = 5811-5) 1.017 1.001-1.035 pH, UA (test code = 5803-2) 6.0 5.0-8.0 Protein, UA (test code = 90618-1) 10 mg/dL Negative A Glucose, UA (test code = 365) Negative Negative Ketones, UA (test code = 2514-8) Trace Negative A Bilirubin, UA (test code = 89143-1) Negative Negative Blood, UA (test code = 66770-1) Trace Negative A Nitrite, UA (test code = 5802-4) Negative Negative Leukocytes, UA (test code = 5799-2) Negative Negative Urobilinogen, UA (test code = 15119-7) 0.2 0.2-1.0 Specimen Source (test code = 2795) LYNDSAY (test code = LYNDSAY) Electronics Tech ID - [auto]Electronics Tech ID - tech Lab Interpretation (test code = 04612-7) [facility]normal [facility] Kgcayvyvmcu7571-69-86 03:58:52* Test Item Value Reference Range Interpretation Comme nts Color, UA (test code = 5778-6) Light Yellow Clarity, UA (test code = 5767-9) Hazy Specific [place], UA (test code = 5811-5) 1.017 1.001-1.035 pH, UA (test code = 5803-2) 6.0 5.0-8.0 Protein, UA (test code = 50888-2) 10 mg/dL Negative A Glucose, UA (test code = 365) Negative Negative Ketones, UA (test code = 2514-8) Trace Negative A Bilirubin, UA (test code = 14063-9) Negative Negative Blood, UA (test code = 30811-4) Trace Negative A Nitrite, UA (test code = 5802-4) Negative Negative Leukocytes, UA (test code = 5799-2) Negative Negative Urobilinogen, UA (test code = 65889-9) 0.2 0.2-1.0 Specimen Source (test code = 2795) LYNDSAY (test code = LYNDSAY) Electronics Tech ID - [auto]Electronics Tech ID - tech Lab Interpretation (test code = 99839-4) [facility]normal [facility] Yxckrjwovwh4400-07-40 03:58:52* Test Item Value Reference Range Interpretation Comme nts Color, UA (test code = 5778-6) Light Yellow Clarity, UA (test code = 5767-9) Hazy Specific [place], UA (test code = 5811-5) 1.017 1.001-1.035 pH, UA (test code = 5803-2) 6.0 5.0-8.0 Protein, UA (test code = 93585-4) 10 mg/dL Negative A Glucose, UA (test code = 365) Negative Negative Ketones, UA (test code = 2514-8) Trace Negative A Bilirubin, UA (test code = 84546-8) Negative Negative Blood, UA (test code = 73792-0) Trace Negative A Nitrite, UA (test code = 5802-4) Negative Negative Leukocytes, UA (test code = 5799-2) Negative Negative Urobilinogen, UA (test code = 70667-1) 0.2 0.2-1.0 Specimen Source (test code = 2795) LYNDSAY (test code = LYNDSAY) Electronics Tech ID - [auto]Electronics Tech ID - tech Lab Interpretation (test code = 18790-3) [facility] Gisitsakwol4780-95-50 03:58:52* Test Item Value Reference Range Interpretation Comme nts Color, UA (test code = 5778-6) Light Yellow Clarity, UA (test code = 5767-9) Hazy Specific [place], UA (test code = 5811-5) 1.017 1.001-1.035 pH, UA (test code = 5803-2) 6.0 5.0-8.0 Protein, UA (test code = 50271-7) 10 mg/dL Negative A Glucose, UA (test code = 365) Negative Negative Ketones, UA (test code = 2514-8) Trace Negative A Bilirubin, UA (test code = 65901-2) Negative Negative Blood, UA (test code = 07021-4) Trace Negative A Nitrite, UA (test code = 5802-4) Negative Negative Leukocytes, UA (test code = 5799-2) Negative Negative Urobilinogen, UA (test code = 79493-2) 0.2 0.2-1.0 Specimen Source (test code = 2795) LYNDSAY (test code = LYNDSAY) Electronics Tech ID - [auto]Electronics Tech ID - tech Lab Interpretation (test code = 09802-1) [facility] Xsntwjekcgz7518-71-24 03:58:52* Test Item Value Reference Range Interpretation Comme nts Color, UA (test code = 5778-6) Light Yellow Clarity, UA (test code = 5767-9) Hazy Specific [place], UA (test code = 5811-5) 1.017 1.001-1.035 pH, UA (test code = 5803-2) 6.0 5.0-8.0 Protein, UA (test code = 26564-6) 10 mg/dL Negative A Glucose, UA (test code = 365) Negative Negative Ketones, UA (test code = 2514-8) Trace Negative A Bilirubin, UA (test code = 26059-0) Negative Negative Blood, UA (test code = 65728-6) Trace Negative A Nitrite, UA (test code = 5802-4) Negative Negative Leukocytes, UA (test code = 5799-2) Negative Negative Urobilinogen, UA (test code = 83219-6) 0.2 0.2-1.0 Specimen Source (test code = 2795) LYNDSAY (test code = LYNDSAY) Electronics Tech ID - [auto]Electronics Tech ID - tech Lab Interpretation (test code = 77903-1) [facility] Lyipffzdzbl5939-19-30 03:58:52* Test Item Value Reference Range Interpretation Comme nts Color, UA (test code = 5778-6) Light Yellow Clarity, UA (test code = 5767-9) Hazy Specific [place], UA (test code = 5811-5) 1.017 1.001-1.035 pH, UA (test code = 5803-2) 6.0 5.0-8.0 Protein, UA (test code = 65953-1) 10 mg/dL Negative A Glucose, UA (test code = 365) Negative Negative Ketones, UA (test code = 2514-8) Trace Negative A Bilirubin, UA (test code = 71067-6) Negative Negative Blood, UA (test code = 71623-1) Trace Negative A Nitrite, UA (test code = 5802-4) Negative Negative Leukocytes, UA (test code = 5799-2) Negative Negative Urobilinogen, UA (test code = 89405-9) 0.2 0.2-1.0 Specimen Source (test code = 2795) LYNDSAY (test code = YLNDSAY) Electronics Tech ID - [auto]Electronics Tech ID - tech Lab Interpretation (test code = 62897-4) [facility] Hnrkrtmtgjo1169-61-83 03:58:52* Test Item Value Reference Range Interpretation Comme nts Color, UA (test code = 5778-6) Light Yellow Clarity, UA (test code = 5767-9) Hazy Specific [place], UA (test code = 5811-5) 1.017 1.001-1.035 pH, UA (test code = 5803-2) 6.0 5.0-8.0 Protein, UA (test code = 16454-0) 10 mg/dL Negative A Glucose, UA (test code = 365) Negative Negative Ketones, UA (test code = 2514-8) Trace Negative A Bilirubin, UA (test code = 99260-5) Negative Negative Blood, UA (test code = 92374-4) Trace Negative A Nitrite, UA (test code = 5802-4) Negative Negative Leukocytes, UA (test code = 5799-2) Negative Negative Urobilinogen, UA (test code = 27313-1) 0.2 0.2-1.0 Specimen Source (test code = 2795) LYNDSAY (test code = LYNDSAY) Electronics Tech ID - [auto]Electronics Tech ID - tech Lab Interpretation (test code = 45079-6) [facility] MBAILCZLQQM7378-95-26 03:58:52* Test Item Value Reference Range Interpretation [...] 0.2 0.2-1.0 SOURCE(BEAKER) (test code = 2795) Electronics Tech ID - [auto]Electronics Tech ID - techCBC W/PLT COUNT & AUTO [...] 2801) 0.70 % 0.00-1.00 Rapid drug screen, [id number] 02:20:15* Test Item Value Reference Range Interpretation Comme nts Barbiturate Screen (test code = 91560-2) Negative Negative Benzodiazepine Screen (test code = 91776-2) Negative Negative Cocaine (Metab.) Screen (test code = 3397-7) Positive Negative A Methadone Screen (test code = 36237-9) Negative Negative Opiate Screen (test code = 58628-0) Negative Negative Cannabinoid Screen (test code = 49022-3) Positive Negative A Amph/Methamph Screen (test code = 35477-8) Negative Negative Phencyclidine Screen (test code = 82104-5) Negative Negative pH, UA (test code = 5803-2) 6.0 5.0-8.0 LYNDSAY (test code = LYNDSAY) DRUG CUTOFF CONC.Cocaine 300 ng/mL Cannabinoid 50 ng/mLBenzodiazepine 200 ng/mLBarbiturate 200 ng/mLPhencyclidine 25 ng/mLOpiate 300 ng/mLMethadone 300 ng/mLAmphetamine/ 1000 ng/mL Methamphetamine This assay provides an unconfirmed qualitative test result for the clinical management of patients in emergency situations. Chain of custody not maintained. Some lsao-hmt-lnzenus medications, as well as adulterants, may cause inaccurate results. Clinical correlation should be applied. A more comprehensive drug screen or confirmation of a detected drug may be performed upon request.Electronics Tech ID - ADMIN Lab Interpretation (test code = 67342-6) [facility]normal [facility], [id number] 02:20:15* Test Item Value Reference Range Interpretation Comme nts Barbiturate Screen (test code = 65203-2) Negative Negative Benzodiazepine Screen (test code = 95247-7) Negative Negative Cocaine (Metab.) Screen (test code = 3397-7) Positive Negative A Methadone Screen (test code = 33167-9) Negative Negative Opiate Screen (test code = 02976-4) Negative Negative Cannabinoid Screen (test code = 74898-2) Positive Negative A Amph/Methamph Screen (test code = 82609-9) Negative Negative Phencyclidine Screen (test code = 39904-9) Negative Negative pH, UA (test code = 5803-2) 6.0 5.0-8.0 LYNDSAY (test code = LYNDSAY) DRUG CUTOFF CONC.Cocaine 300 ng/mL Cannabinoid 50 ng/mLBenzodiazepine 200 ng/mLBarbiturate 200 ng/mLPhencyclidine 25 ng/mLOpiate 300 ng/mLMethadone 300 ng/mLAmphetamine/ 1000 ng/mL Methamphetamine This assay provides an unconfirmed qualitative test result for the clinical management of patients in emergency situations. Chain of custody not maintained. Some znoj-lqd-lrldwaf medications, as well as adulterants, may cause inaccurate results. Clinical correlation should be applied. A more comprehensive drug screen or confirmation of a detected drug may be performed upon request.Electronics Tech ID - ADMIN Lab Interpretation (test code = 60087-8) [facility]normal [facility], [id number] 02:20:15* Test Item Value Reference Range Interpretation Comme nts Barbiturate Screen (test code = 60811-7) Negative Negative Benzodiazepine Screen (test code = 75768-4) Negative Negative Cocaine (Metab.) Screen (test code = 3397-7) Positive Negative A Methadone Screen (test code = 82641-1) Negative Negative Opiate Screen (test code = 00367-8) Negative Negative Cannabinoid Screen (test code = 94637-3) Positive Negative A Amph/Methamph Screen (test code = 56980-4) Negative Negative Phencyclidine Screen (test code = 09609-8) Negative Negative pH, UA (test code = 5803-2) 6.0 5.0-8.0 LYNDSAY (test code = LYNDSAY) DRUG CUTOFF CONC.Cocaine 300 ng/mL Cannabinoid 50 ng/mLBenzodiazepine 200 ng/mLBarbiturate 200 ng/mLPhencyclidine 25 ng/mLOpiate 300 ng/mLMethadone 300 ng/mLAmphetamine/ 1000 ng/mL Methamphetamine This assay provides an unconfirmed qualitative test result for the clinical management of patients in emergency situations. Chain of custody not maintained. Some lzjp-edh-azqrqws medications, as well as adulterants, may cause inaccurate results. Clinical correlation should be applied. A more comprehensive drug screen or confirmation of a detected drug may be performed upon request.Electronics Tech ID - ADMIN Lab Interpretation (test code = 85827-5) [facility], [id number] 02:20:15* Test Item Value Reference Range Interpretation Comme nts Barbiturate Screen (test code = 67047-8) Negative Negative Benzodiazepine Screen (test code = 61398-5) Negative Negative Cocaine (Metab.) Screen (test code = 3397-7) Positive Negative A Methadone Screen (test code = 07358-5) Negative Negative Opiate Screen (test code = 49227-4) Negative Negative Cannabinoid Screen (test code = 19352-1) Positive Negative A Amph/Methamph Screen (test code = 84859-6) Negative Negative Phencyclidine Screen (test code = 69646-9) Negative Negative pH, UA (test code = 5803-2) 6.0 5.0-8.0 LYNDSAY (test code = LYNDSAY) DRUG CUTOFF CONC.Cocaine 300 ng/mL Cannabinoid 50 ng/mLBenzodiazepine 200 ng/mLBarbiturate 200 ng/mLPhencyclidine 25 ng/mLOpiate 300 ng/mLMethadone 300 ng/mLAmphetamine/ 1000 ng/mL Methamphetamine This assay provides an unconfirmed qualitative test result for the clinical management of patients in emergency situations. Chain of custody not maintained. Some vjvn-eji-sxofyzg medications, as well as adulterants, may cause inaccurate results. Clinical correlation should be applied. A more comprehensive drug screen or confirmation of a detected drug may be performed upon request.Electronics Tech ID - ADMIN Lab Interpretation (test code = 00687-0) [facility], [id number] 02:20:15* Test Item Value Reference Range Interpretation Comme nts Barbiturate Screen (test code = 64130-9) Negative Negative Benzodiazepine Screen (test code = 48105-7) Negative Negative Cocaine (Metab.) Screen (test code = 3397-7) Positive Negative A Methadone Screen (test code = 00168-7) Negative Negative Opiate Screen (test code = 33599-5) Negative Negative Cannabinoid Screen (test code = 67085-0) Positive Negative A Amph/Methamph Screen (test code = 25239-5) Negative Negative Phencyclidine Screen (test code = 95214-6) Negative Negative pH, UA (test code = 5803-2) 6.0 5.0-8.0 LYNDSAY (test code = LYNDSAY) DRUG CUTOFF CONC.Cocaine 300 ng/mL Cannabinoid 50 ng/mLBenzodiazepine 200 ng/mLBarbiturate 200 ng/mLPhencyclidine 25 ng/mLOpiate 300 ng/mLMethadone 300 ng/mLAmphetamine/ 1000 ng/mL Methamphetamine This assay provides an unconfirmed qualitative test result for the clinical management of patients in emergency situations. Chain of custody not maintained. Some ewmp-iqv-amghwmj medications, as well as adulterants, may cause inaccurate results. Clinical correlation should be applied. A more comprehensive drug screen or confirmation of a detected drug may be performed upon request.Electronics Tech ID - ADMIN Lab Interpretation (test code = 53234-0) [facility], [id number] 02:20:15* Test Item Value Reference Range Interpretation Comme nts Barbiturate Screen (test code = 31335-1) Negative Negative Benzodiazepine Screen (test code = 02361-7) Negative Negative Cocaine (Metab.) Screen (test code = 3397-7) Positive Negative A Methadone Screen (test code = 26605-2) Negative Negative Opiate Screen (test code = 20906-1) Negative Negative Cannabinoid Screen (test code = 13550-8) Positive Negative A Amph/Methamph Screen (test code = 46181-1) Negative Negative Phencyclidine Screen (test code = 63937-4) Negative Negative pH, UA (test code = 5803-2) 6.0 5.0-8.0 LYNDSAY (test code = LYNDSAY) DRUG CUTOFF CONC.Cocaine 300 ng/mL Cannabinoid 50 ng/mLBenzodiazepine 200 ng/mLBarbiturate 200 ng/mLPhencyclidine 25 ng/mLOpiate 300 ng/mLMethadone 300 ng/mLAmphetamine/ 1000 ng/mL Methamphetamine This assay provides an unconfirmed qualitative test result for the clinical management of patients in emergency situations. Chain of custody not maintained. Some wjob-hpj-sxhzrlr medications, as well as adulterants, may cause inaccurate results. Clinical correlation should be applied. A more comprehensive drug screen or confirmation of a detected drug may be performed upon request.Electronics Tech ID - ADMIN Lab Interpretation (test code = 14843-9) [facility], [id number] 02:20:15* Test Item Value Reference Range Interpretation Comme nts Barbiturate Screen (test code = 74679-8) Negative Negative Benzodiazepine Screen (test code = 16799-1) Negative Negative Cocaine (Metab.) Screen (test code = 3397-7) Positive Negative A Methadone Screen (test code = 47367-1) Negative Negative Opiate Screen (test code = 38762-1) Negative Negative Cannabinoid Screen (test code = 69024-1) Positive Negative A Amph/Methamph Screen (test code = 92050-4) Negative Negative Phencyclidine Screen (test code = 83235-7) Negative Negative pH, UA (test code = 5803-2) 6.0 5.0-8.0 LYNDSAY (test code = LYNDSAY) DRUG CUTOFF CONC.Cocaine 300 ng/mL Cannabinoid 50 ng/mLBenzodiazepine 200 ng/mLBarbiturate 200 ng/mLPhencyclidine 25 ng/mLOpiate 300 ng/mLMethadone 300 ng/mLAmphetamine/ 1000 ng/mL Methamphetamine This assay provides an unconfirmed qualitative test result for the clinical management of patients in emergency situations. Chain of custody not maintained. Some qhlg-dsd-tihvvfn medications, as well as adulterants, may cause inaccurate results. Clinical correlation should be applied. A more comprehensive drug screen or confirmation of a detected drug may be performed upon request.Electronics Tech ID - ADMIN Lab Interpretation (test code = 32328-3) [facility], [id number] 02:20:15* Test Item Value Reference Range Interpretation Comme nts Barbiturate Screen (test code = 64707-3) Negative Negative Benzodiazepine Screen (test code = 11766-5) Negative Negative Cocaine (Metab.) Screen (test code = 3397-7) Positive Negative A Methadone Screen (test code = 91803-4) Negative Negative Opiate Screen (test code = 54435-6) Negative Negative Cannabinoid Screen (test code = 49883-3) Positive Negative A Amph/Methamph Screen (test code = 02332-3) Negative Negative Phencyclidine Screen (test code = 21407-5) Negative Negative pH, UA (test code = 5803-2) 6.0 5.0-8.0 LYNDSAY (test code = LYNDSAY) DRUG CUTOFF CONC.Cocaine 300 ng/mL Cannabinoid 50 ng/mLBenzodiazepine 200 ng/mLBarbiturate 200 ng/mLPhencyclidine 25 ng/mLOpiate 300 ng/mLMethadone 300 ng/mLAmphetamine/ 1000 ng/mL Methamphetamine This assay provides an unconfirmed qualitative test result for the clinical management of patients in emergency situations. Chain of custody not maintained. Some qjzs-jot-izfatxk medications, as well as adulterants, may cause inaccurate results. Clinical correlation should be applied. A more comprehensive drug screen or confirmation of a detected drug may be performed upon request.Electronics Tech ID - ADMIN Lab Interpretation (test code = 11612-7) [facility]normal [facility], [id number] 02:20:15* Test Item Value Reference Range Interpretation Comme nts Barbiturate Screen (test code = 50853-1) Negative Negative Benzodiazepine Screen (test code = 02402-4) Negative Negative Cocaine (Metab.) Screen (test code = 3397-7) Positive Negative A Methadone Screen (test code = 64117-6) Negative Negative Opiate Screen (test code = 06438-5) Negative Negative Cannabinoid Screen (test code = 81132-9) Positive Negative A Amph/Methamph Screen (test code = 11594-2) Negative Negative Phencyclidine Screen (test code = 68215-8) Negative Negative pH, UA (test code = 5803-2) 6.0 5.0-8.0 LYNDSAY (test code = LYNDSAY) DRUG CUTOFF CONC.Cocaine 300 ng/mL Cannabinoid 50 ng/mLBenzodiazepine 200 ng/mLBarbiturate 200 ng/mLPhencyclidine 25 ng/mLOpiate 300 ng/mLMethadone 300 ng/mLAmphetamine/ 1000 ng/mL Methamphetamine This assay provides an unconfirmed qualitative test result for the clinical management of patients in emergency situations. Chain of custody not maintained. Some jfcw-ouy-ifkqwqj medications, as well as adulterants, may cause inaccurate results. Clinical correlation should be applied. A more comprehensive drug screen or confirmation of a detected drug may be performed upon request.Electronics Tech ID - ADMIN Lab Interpretation (test code = 96921-9) [facility]normal [facility], [id number] 02:20:15* Test Item Value Reference Range Interpretation Comme nts Barbiturate Screen (test code = 55267-2) Negative Negative Benzodiazepine Screen (test code = 82011-9) Negative Negative Cocaine (Metab.) Screen (test code = 3397-7) Positive Negative A Methadone Screen (test code = 32238-8) Negative Negative Opiate Screen (test code = 85781-5) Negative Negative Cannabinoid Screen (test code = 22372-5) Positive Negative A Amph/Methamph Screen (test code = 05680-0) Negative Negative Phencyclidine Screen (test code = 01641-7) Negative Negative pH, UA (test code = 5803-2) 6.0 5.0-8.0 LYNDSAY (test code = LYNDSAY) DRUG CUTOFF CONC.Cocaine 300 ng/mL Cannabinoid 50 ng/mLBenzodiazepine 200 ng/mLBarbiturate 200 ng/mLPhencyclidine 25 ng/mLOpiate 300 ng/mLMethadone 300 ng/mLAmphetamine/ 1000 ng/mL Methamphetamine This assay provides an unconfirmed qualitative test result for the clinical management of patients in emergency situations. Chain of custody not maintained. Some cxtl-zua-kbwfhxi medications, as well as adulterants, may cause inaccurate results. Clinical correlation should be applied. A more comprehensive drug screen or confirmation of a detected drug may be performed upon request.Electronics Tech ID - ADMIN Lab Interpretation (test code = 18101-9) [facility]normal [facility], [id number] 02:20:15* Test Item Value Reference Range Interpretation Comme nts Barbiturate Screen (test code = 85884-2) Negative Negative Benzodiazepine Screen (test code = 40111-0) Negative Negative Cocaine (Metab.) Screen (test code = 3397-7) Positive Negative A Methadone Screen (test code = 75991-2) Negative Negative Opiate Screen (test code = 71498-9) Negative Negative Cannabinoid Screen (test code = 82263-7) Positive Negative A Amph/Methamph Screen (test code = 83375-7) Negative Negative Phencyclidine Screen (test code = 53324-2) Negative Negative pH, UA (test code = 5803-2) 6.0 5.0-8.0 LYNDSAY (test code = LYNDSAY) DRUG CUTOFF CONC.Cocaine 300 ng/mL Cannabinoid 50 ng/mLBenzodiazepine 200 ng/mLBarbiturate 200 ng/mLPhencyclidine 25 ng/mLOpiate 300 ng/mLMethadone 300 ng/mLAmphetamine/ 1000 ng/mL Methamphetamine This assay provides an unconfirmed qualitative test result for the clinical management of patients in emergency situations. Chain of custody not maintained. Some ropy-hbv-eafjswm medications, as well as adulterants, may cause inaccurate results. Clinical correlation should be applied. A more comprehensive drug screen or confirmation of a detected drug may be performed upon request.Electronics Tech ID - ADMIN Lab Interpretation (test code = 44113-8) [facility]normal [facility], [id number] 02:20:15* Test Item Value Reference Range Interpretation Comme nts Barbiturate Screen (test code = 11462-7) Negative Negative Benzodiazepine Screen (test code = 92745-8) Negative Negative Cocaine (Metab.) Screen (test code = 3397-7) Positive Negative A Methadone Screen (test code = 17168-4) Negative Negative Opiate Screen (test code = 17134-1) Negative Negative Cannabinoid Screen (test code = 78963-7) Positive Negative A Amph/Methamph Screen (test code = 58267-1) Negative Negative Phencyclidine Screen (test code = 38000-2) Negative Negative pH, UA (test code = 5803-2) 6.0 5.0-8.0 LYNDSAY (test code = LYNDSAY) DRUG CUTOFF CONC.Cocaine 300 ng/mL Cannabinoid 50 ng/mLBenzodiazepine 200 ng/mLBarbiturate 200 ng/mLPhencyclidine 25 ng/mLOpiate 300 ng/mLMethadone 300 ng/mLAmphetamine/ 1000 ng/mL Methamphetamine This assay provides an unconfirmed qualitative test result for the clinical management of patients in emergency situations. Chain of custody not maintained. Some fpem-lii-ajqctgy medications, as well as adulterants, may cause inaccurate results. Clinical correlation should be applied. A more comprehensive drug screen or confirmation of a detected drug may be performed upon request.Electronics Tech ID - ADMIN Lab Interpretation (test code = 19040-5) [facility]normal [facility], [id number] 02:20:15* Test Item Value Reference Range Interpretation Comme nts Barbiturate Screen (test code = 24422-8) Negative Negative Benzodiazepine Screen (test code = 41186-7) Negative Negative Cocaine (Metab.) Screen (test code = 3397-7) Positive Negative A Methadone Screen (test code = 74103-8) Negative Negative Opiate Screen (test code = 07238-2) Negative Negative Cannabinoid Screen (test code = 29320-8) Positive Negative A Amph/Methamph Screen (test code = 51069-9) Negative Negative Phencyclidine Screen (test code = 43220-0) Negative Negative pH, UA (test code = 5803-2) 6.0 5.0-8.0 LYNDSAY (test code = LYNDSAY) DRUG CUTOFF CONC.Cocaine 300 ng/mL Cannabinoid 50 ng/mLBenzodiazepine 200 ng/mLBarbiturate 200 ng/mLPhencyclidine 25 ng/mLOpiate 300 ng/mLMethadone 300 ng/mLAmphetamine/ 1000 ng/mL Methamphetamine This assay provides an unconfirmed qualitative test result for the clinical management of patients in emergency situations. Chain of custody not maintained. Some popa-cgh-dldreik medications, as well as adulterants, may cause inaccurate results. Clinical correlation should be applied. A more comprehensive drug screen or confirmation of a detected drug may be performed upon request.Electronics Tech ID - ADMIN Lab Interpretation (test code = 71081-3) [facility]normal [facility], [id number] 02:20:15* Test Item Value Reference Range Interpretation Comme nts Barbiturate Screen (test code = 05254-9) Negative Negative Benzodiazepine Screen (test code = 98745-4) Negative Negative Cocaine (Metab.) Screen (test code = 3397-7) Positive Negative A Methadone Screen (test code = 27910-3) Negative Negative Opiate Screen (test code = 50495-9) Negative Negative Cannabinoid Screen (test code = 41032-2) Positive Negative A Amph/Methamph Screen (test code = 08652-1) Negative Negative Phencyclidine Screen (test code = 90107-2) Negative Negative pH, UA (test code = 5803-2) 6.0 5.0-8.0 LYNDSAY (test code = LYNDSAY) DRUG CUTOFF CONC.Cocaine 300 ng/mL Cannabinoid 50 ng/mLBenzodiazepine 200 ng/mLBarbiturate 200 ng/mLPhencyclidine 25 ng/mLOpiate 300 ng/mLMethadone 300 ng/mLAmphetamine/ 1000 ng/mL Methamphetamine This assay provides an unconfirmed qualitative test result for the clinical management of patients in emergency situations. Chain of custody not maintained. Some jzmz-exx-mkxibge medications, as well as adulterants, may cause inaccurate results. Clinical correlation should be applied. A more comprehensive drug screen or confirmation of a detected drug may be performed upon request.Electronics Tech ID - ADMIN Lab Interpretation (test code = 77707-9) [facility]normal [facility], [id number] 02:20:15* Test Item Value Reference Range Interpretation Comme nts Barbiturate Screen (test code = 86058-0) Negative Negative Benzodiazepine Screen (test code = 15997-9) Negative Negative Cocaine (Metab.) Screen (test code = 3397-7) Positive Negative A Methadone Screen (test code = 51648-4) Negative Negative Opiate Screen (test code = 38563-8) Negative Negative Cannabinoid Screen (test code = 62683-6) Positive Negative A Amph/Methamph Screen (test code = 79998-6) Negative Negative Phencyclidine Screen (test code = 12408-8) Negative Negative pH, UA (test code = 5803-2) 6.0 5.0-8.0 LYNDSAY (test code = LYNDSAY) DRUG CUTOFF CONC.Cocaine 300 ng/mL Cannabinoid 50 ng/mLBenzodiazepine 200 ng/mLBarbiturate 200 ng/mLPhencyclidine 25 ng/mLOpiate 300 ng/mLMethadone 300 ng/mLAmphetamine/ 1000 ng/mL Methamphetamine This assay provides an unconfirmed qualitative test result for the clinical management of patients in emergency situations. Chain of custody not maintained. Some ojbm-fzi-mlnbaxt medications, as well as adulterants, may cause inaccurate results. Clinical correlation should be applied. A more comprehensive drug screen or confirmation of a detected drug may be performed upon request.Electronics Tech ID - ADMIN Lab Interpretation (test code = 44096-0) [facility]normal [facility], [id number] 02:20:15* Test Item Value Reference Range Interpretation Comme nts Barbiturate Screen (test code = 41388-4) Negative Negative Benzodiazepine Screen (test code = 91098-6) Negative Negative Cocaine (Metab.) Screen (test code = 3397-7) Positive Negative A Methadone Screen (test code = 44488-1) Negative Negative Opiate Screen (test code = 92859-0) Negative Negative Cannabinoid Screen (test code = 02517-0) Positive Negative A Amph/Methamph Screen (test code = 61607-6) Negative Negative Phencyclidine Screen (test code = 19467-5) Negative Negative pH, UA (test code = 5803-2) 6.0 5.0-8.0 LYNDSAY (test code = LYNDSAY) DRUG CUTOFF CONC.Cocaine 300 ng/mL Cannabinoid 50 ng/mLBenzodiazepine 200 ng/mLBarbiturate 200 ng/mLPhencyclidine 25 ng/mLOpiate 300 ng/mLMethadone 300 ng/mLAmphetamine/ 1000 ng/mL Methamphetamine This assay provides an unconfirmed qualitative test result for the clinical management of patients in emergency situations. Chain of custody not maintained. Some xqdp-pgk-eiqegui medications, as well as adulterants, may cause inaccurate results. Clinical correlation should be applied. A more comprehensive drug screen or confirmation of a detected drug may be performed upon request.Electronics Tech ID - ADMIN Lab Interpretation (test code = 13081-6) [facility]normal [facility], [id number] 02:20:15* Test Item Value Reference Range Interpretation Comme nts Barbiturate Screen (test code = 38951-8) Negative Negative Benzodiazepine Screen (test code = 97313-2) Negative Negative Cocaine (Metab.) Screen (test code = 3397-7) Positive Negative A Methadone Screen (test code = 42094-5) Negative Negative Opiate Screen (test code = 55275-6) Negative Negative Cannabinoid Screen (test code = 23584-0) Positive Negative A Amph/Methamph Screen (test code = 63432-0) Negative Negative Phencyclidine Screen (test code = 32816-5) Negative Negative pH, UA (test code = 5803-2) 6.0 5.0-8.0 LYNDSAY (test code = LYNDSAY) DRUG CUTOFF CONC.Cocaine 300 ng/mL Cannabinoid 50 ng/mLBenzodiazepine 200 ng/mLBarbiturate 200 ng/mLPhencyclidine 25 ng/mLOpiate 300 ng/mLMethadone 300 ng/mLAmphetamine/ 1000 ng/mL Methamphetamine This assay provides an unconfirmed qualitative test result for the clinical management of patients in emergency situations. Chain of custody not maintained. Some naew-vxa-dmtpmjv medications, as well as adulterants, may cause inaccurate results. Clinical correlation should be applied. A more comprehensive drug screen or confirmation of a detected drug may be performed upon request.Electronics Tech ID - ADMIN Lab Interpretation (test code = 87687-7) [facility]normal [facility], [id number] 02:20:15* Test Item Value Reference Range Interpretation Comme nts Barbiturate Screen (test code = 34333-3) Negative Negative Benzodiazepine Screen (test code = 20581-8) Negative Negative Cocaine (Metab.) Screen (test code = 3397-7) Positive Negative A Methadone Screen (test code = 94591-1) Negative Negative Opiate Screen (test code = 85591-2) Negative Negative Cannabinoid Screen (test code = 01244-8) Positive Negative A Amph/Methamph Screen (test code = 35052-9) Negative Negative Phencyclidine Screen (test code = 78051-8) Negative Negative pH, UA (test code = 5803-2) 6.0 5.0-8.0 LYNDSAY (test code = LYNDSAY) DRUG CUTOFF CONC.Cocaine 300 ng/mL Cannabinoid 50 ng/mLBenzodiazepine 200 ng/mLBarbiturate 200 ng/mLPhencyclidine 25 ng/mLOpiate 300 ng/mLMethadone 300 ng/mLAmphetamine/ 1000 ng/mL Methamphetamine This assay provides an unconfirmed qualitative test result for the clinical management of patients in emergency situations. Chain of custody not maintained. Some tjuh-urt-txfjdps medications, as well as adulterants, may cause inaccurate results. Clinical correlation should be applied. A more comprehensive drug screen or confirmation of a detected drug may be performed upon request.Electronics Tech ID - ADMIN Lab Interpretation (test code = 70505-9) [facility]normal [facility], [id number] 02:20:15* Test Item Value Reference Range Interpretation Comme nts Barbiturate Screen (test code = 88535-8) Negative Negative Benzodiazepine Screen (test code = 19499-8) Negative Negative Cocaine (Metab.) Screen (test code = 3397-7) Positive Negative A Methadone Screen (test code = 86833-1) Negative Negative Opiate Screen (test code = 18770-4) Negative Negative Cannabinoid Screen (test code = 58638-7) Positive Negative A Amph/Methamph Screen (test code = 75087-4) Negative Negative Phencyclidine Screen (test code = 53554-8) Negative Negative pH, UA (test code = 5803-2) 6.0 5.0-8.0 LYNDSAY (test code = LYNDSAY) DRUG CUTOFF CONC.Cocaine 300 ng/mL Cannabinoid 50 ng/mLBenzodiazepine 200 ng/mLBarbiturate 200 ng/mLPhencyclidine 25 ng/mLOpiate 300 ng/mLMethadone 300 ng/mLAmphetamine/ 1000 ng/mL Methamphetamine This assay provides an unconfirmed qualitative test result for the clinical management of patients in emergency situations. Chain of custody not maintained. Some mpkn-vjh-pfqdcke medications, as well as adulterants, may cause inaccurate results. Clinical correlation should be applied. A more comprehensive drug screen or confirmation of a detected drug may be performed upon request.Electronics Tech ID - ADMIN Lab Interpretation (test code = 06566-1) [facility]normal [facility], [id number] 02:20:15* Test Item Value Reference Range Interpretation Comme nts Barbiturate Screen (test code = 60407-9) Negative Negative Benzodiazepine Screen (test code = 64757-5) Negative Negative Cocaine (Metab.) Screen (test code = 3397-7) Positive Negative A Methadone Screen (test code = 97662-3) Negative Negative Opiate Screen (test code = 77209-3) Negative Negative Cannabinoid Screen (test code = 77461-8) Positive Negative A Amph/Methamph Screen (test code = 48697-0) Negative Negative Phencyclidine Screen (test code = 29078-6) Negative Negative pH, UA (test code = 5803-2) 6.0 5.0-8.0 LYNDSAY (test code = LYNDSAY) DRUG CUTOFF CONC.Cocaine 300 ng/mL Cannabinoid 50 ng/mLBenzodiazepine 200 ng/mLBarbiturate 200 ng/mLPhencyclidine 25 ng/mLOpiate 300 ng/mLMethadone 300 ng/mLAmphetamine/ 1000 ng/mL Methamphetamine This assay provides an unconfirmed qualitative test result for the clinical management of patients in emergency situations. Chain of custody not maintained. Some gxtb-ria-werpchk medications, as well as adulterants, may cause inaccurate results. Clinical correlation should be applied. A more comprehensive drug screen or confirmation of a detected drug may be performed upon request.Electronics Tech ID - ADMIN Lab Interpretation (test code = 26844-8) [facility]normal [facility], [id number] 02:20:15* Test Item Value Reference Range Interpretation Comme nts Barbiturate Screen (test code = 97423-4) Negative Negative Benzodiazepine Screen (test code = 43440-3) Negative Negative Cocaine (Metab.) Screen (test code = 3397-7) Positive Negative A Methadone Screen (test code = 10555-0) Negative Negative Opiate Screen (test code = 90060-2) Negative Negative Cannabinoid Screen (test code = 56424-4) Positive Negative A Amph/Methamph Screen (test code = 50523-7) Negative Negative Phencyclidine Screen (test code = 05150-6) Negative Negative pH, UA (test code = 5803-2) 6.0 5.0-8.0 LYNDSAY (test code = LYNDSAY) DRUG CUTOFF CONC.Cocaine 300 ng/mL Cannabinoid 50 ng/mLBenzodiazepine 200 ng/mLBarbiturate 200 ng/mLPhencyclidine 25 ng/mLOpiate 300 ng/mLMethadone 300 ng/mLAmphetamine/ 1000 ng/mL Methamphetamine This assay provides an unconfirmed qualitative test result for the clinical management of patients in emergency situations. Chain of custody not maintained. Some lznv-bwh-djhmxiz medications, as well as adulterants, may cause inaccurate results. Clinical correlation should be applied. A more comprehensive drug screen or confirmation of a detected drug may be performed upon request.Electronics Tech ID - ADMIN Lab Interpretation (test code = 79754-5) [facility]normal [facility], [id number] 02:20:15* Test Item Value Reference Range Interpretation Comme nts Barbiturate Screen (test code = 36846-4) Negative Negative Benzodiazepine Screen (test code = 06601-9) Negative Negative Cocaine (Metab.) Screen (test code = 3397-7) Positive Negative A Methadone Screen (test code = 07912-0) Negative Negative Opiate Screen (test code = 94405-8) Negative Negative Cannabinoid Screen (test code = 65547-2) Positive Negative A Amph/Methamph Screen (test code = 88793-3) Negative Negative Phencyclidine Screen (test code = 66418-4) Negative Negative pH, UA (test code = 5803-2) 6.0 5.0-8.0 LYNDSAY (test code = LYNDSAY) DRUG CUTOFF CONC.Cocaine 300 ng/mL Cannabinoid 50 ng/mLBenzodiazepine 200 ng/mLBarbiturate 200 ng/mLPhencyclidine 25 ng/mLOpiate 300 ng/mLMethadone 300 ng/mLAmphetamine/ 1000 ng/mL Methamphetamine This assay provides an unconfirmed qualitative test result for the clinical management of patients in emergency situations. Chain of custody not maintained. Some bbgk-gsb-hrmmcnu medications, as well as adulterants, may cause inaccurate results. Clinical correlation should be applied. A more comprehensive drug screen or confirmation of a detected drug may be performed upon request.Electronics Tech ID - ADMIN Lab Interpretation (test code = 69257-0) Abnormal [facility], [id number] 02:20:15* Test Item Value Reference Range Interpretation Comme nts Barbiturate Screen (test code = 43388-5) Negative Negative Benzodiazepine Screen (test code = 10335-7) Negative Negative Cocaine (Metab.) Screen (test code = 3397-7) Positive Negative A Methadone Screen (test code = 32513-2) Negative Negative Opiate Screen (test code = 37848-4) Negative Negative Cannabinoid Screen (test code = 74711-8) Positive Negative A Amph/Methamph Screen (test code = 67508-4) Negative Negative Phencyclidine Screen (test code = 46748-8) Negative Negative pH, UA (test code = 5803-2) 6.0 5.0-8.0 LYNDSAY (test code = LYNDSAY) DRUG CUTOFF CONC.Cocaine 300 ng/mL Cannabinoid 50 ng/mLBenzodiazepine 200 ng/mLBarbiturate 200 ng/mLPhencyclidine 25 ng/mLOpiate 300 ng/mLMethadone 300 ng/mLAmphetamine/ 1000 ng/mL Methamphetamine This assay provides an unconfirmed qualitative test result for the clinical management of patients in emergency situations. Chain of custody not maintained. Some ruky-nun-fdjjdaz medications, as well as adulterants, may cause inaccurate results. Clinical correlation should be applied. A more comprehensive drug screen or confirmation of a detected drug may be performed upon request.Electronics Tech ID - ADMIN Lab Interpretation (test code = 29924-3) Abnormal [facility], [id number] 02:20:15* Test Item Value Reference Range Interpretation Comme nts Barbiturate Screen (test code = 25418-7) Negative Negative Benzodiazepine Screen (test code = 07373-6) Negative Negative Cocaine (Metab.) Screen (test code = 3397-7) Positive Negative A Methadone Screen (test code = 04362-9) Negative Negative Opiate Screen (test code = 74047-3) Negative Negative Cannabinoid Screen (test code = 59375-8) Positive Negative A Amph/Methamph Screen (test code = 97187-2) Negative Negative Phencyclidine Screen (test code = 84886-8) Negative Negative pH, UA (test code = 5803-2) 6.0 5.0-8.0 LYNDSAY (test code = LYNDSAY) DRUG CUTOFF CONC.Cocaine 300 ng/mL Cannabinoid 50 ng/mLBenzodiazepine 200 ng/mLBarbiturate 200 ng/mLPhencyclidine 25 ng/mLOpiate 300 ng/mLMethadone 300 ng/mLAmphetamine/ 1000 ng/mL Methamphetamine This assay provides an unconfirmed qualitative test result for the clinical management of patients in emergency situations. Chain of custody not maintained. Some lxzk-xpn-tpdtomx medications, as well as adulterants, may cause inaccurate results. Clinical correlation should be applied. A more comprehensive drug screen or confirmation of a detected drug may be performed upon request.Electronics Tech ID - ADMIN Lab Interpretation (test code = 80672-9) Abnormal [facility], [id number] 02:20:15* Test Item Value Reference Range Interpretation [...] situations. Chain of custody not maintained. Some oskf-wyv-sakhzcy medications, as well asadulterants, may cause inaccurate results. Clinical correlation should be applied. A more comprehensive drug screen or confirmation of a detected drug may be performed upon request.Electronics Tech ID - ADMINB-TYPE NATRIURETIC FACTOR (BNP)2023-09-04 02:11:53* Test Item Value Reference Range Interpretation Comme nts B-TYPE NATRIURETIC PEPTIDE (BEAKER) (test code = 700) 1761 pg/mL 0-100 H Electronics Tech ID - ADMINLACTIC ACID, [id number] 02:10:37* Test Item Value Reference Range Interpretation Comme nts LACTATE BLOOD VENOUS (2) (BEAKER) (test code = 2872) 1.04 mmol/L 0.50-2.00 Specimen slightl y hemolyzed Electronics Tech ID - [id number] 02:04:37* Test Item Value Reference Range Interpretation Comme nts PHOSPHORUS (BEAKER) (test code = 604) 4.2 mg/dL 2.3-4.7 Specimen sligh tly hemolyzed Electronics Tech ID - ADMINCOMPREHENSIVE METABOLIC [id number] 02:04:37* Test Item Value Reference Range Interpretation [...] GFR is not applicable for dialysis patients Electronics Tech ID - [id number] 02:04:36* Test Item Value Reference Range Interpretation Comme nts MAGNESIUM (LATOYA) (test code = 627) 2.1 mg/dL 1.6-2.6 Specimen sligh tly hemolyzed Electronics Tech ID - [id number] 01:45:13* Test Item Value Reference Range Interpretation [...] code = 760) 28.5 seconds 22.5-36.0 PROTHROMBIN TIME/[id number] 01:42:15* Test Item Value Reference Range Interpretation Comme nts PROTIME (BEAKER) (test code = 759) 15.8 seconds 11.9-14.2 H INR (BEAKER) (test code = 370) 1.25 <=5.90 RECOMMENDED COUMADIN/WARFARIN INR THERAPY RANGESSTANDARD DOSE: 2.0 - 3.0 Includes: PROPHYLAXIS for venous thrombosis, systemic embolization; TREATMENT for venous thrombosis and/or pulmonary embolus.HIGH RISK: Target INR is 2.5-3.5 for patients with mechanical heart valves.[id number] 00:00:00Ordered by an unspecified provider.[facility] HospitalEKG-[id number] 00:00:00Ordered by an unspecified provider.[facility] HospitalLactic Acid Whole [id number] 20:51:22* Test Item Value Reference Range Interpretation Comme nts LACTIC ACID (test code = 9284468352) 1.56 mmol/L 0.50-2.20 Lab Interpretation (test cod e = 15733-8) [facility] [id number] 07:00:09* Test Item Value Reference Range Interpretation Comme nts CULTURE (BEAKER) (test code = 1095) No growth in 5 days BLOOD [id number] 07:00:09* Test Item Value Reference Range Interpretation Comme nts CULTURE (BEAKER) (test code = 1095) No growth in 5 days T-SPOT(R).[id number] 18:35:00* Test Item Value Reference Range Interpretation Comme nts T-SPOT.TB (test code = 1152416) Negative SeeBelow Normal Value: Ne gativeA negative [...] 20150905) 0 NEGATIVE CONTROL (test code = 9677877) Passed POSITIVE CONTROL (test code = 6054631) Passed LYNDSAY (test code = LYNDSAY) [id number] [facility] HospitalT[facility](R).[id number] 18:35:00* Test Item Value Reference Range Interpretation [...] 20150905) 0 NEGATIVE CONTROL (test code = 3870387) Passed POSITIVE CONTROL (test code = 2764414) Passed LYNDSAY (test code = LYNDSAY) [id number] [facility]).[id number] 18:35:00* Test Item Value Reference Range Interpretation [...] 20150905) 0 NEGATIVE CONTROL (test code = 1122623) Passed POSITIVE CONTROL (test code = 20150907) Passed LYNDSAY (test code = LYNDSAY) [id number] [facility]).[id number] 18:35:00* Test Item Value Reference Range Interpretation Comme nts T-SPOT.TB (test code = 4835440) Negative SeeBelow Normal Value: Ne gativeA negative [...] CORRECTED FOR NEG CONTROL (test code = 4163589) 0 NEGATIVE CONTROL (test code = 2408791) Passed POSITIVE CONTROL (test code = 5874554) Passed LYNDSAY (test code = LYNDSAY) [id number] [facility]).[id number] 18:35:00* Test Item Value Reference Range Interpretation Comme nts T-SPOT.TB (test code = 7478465) Negative SeeBelow Normal Value: Ne gativeA negative [...] CORRECTED FOR NEG CONTROL (test code = 9019077) 1 PANEL B SPOT COUNT CORRECTED FOR NEG CONTROL (test code = 0948970) 0 NEGATIVE CONTROL (test code = 5401123) Passed POSITIVE CONTROL (test code = 9267644) Passed LYNDSAY (test code = LYNDSAY) [id number] [facility]).[id number] 18:35:00* Test Item Value Reference Range Interpretation Comme nts T-SPOT.TB (test code = 0821017) Negative SeeBelow Normal Value: Ne gativeA negative [...] CORRECTED FOR NEG CONTROL (test code = 2272394) 1 PANEL B SPOT COUNT CORRECTED FOR NEG CONTROL (test code = 8537733) 0 NEGATIVE CONTROL (test code = 7864097) Passed POSITIVE CONTROL (test code = 4970138) Passed LYNDSAY (test code = LYNDSAY) [id number] [facility]).[id number] 18:35:00* Test Item Value Reference Range Interpretation [...] CORRECTED FOR NEG CONTROL (test code = 9086273) 0 NEGATIVE CONTROL (test code = 1592877) Passed POSITIVE CONTROL (test code = 1317925) Passed LYNDSAY (test code = LYNDSAY) [id number] [facility]).[id number] 18:35:00* Test Item Value Reference Range Interpretation [...] 20150905) 0 NEGATIVE CONTROL (test code = 3529193) Passed POSITIVE CONTROL (test code = 20150907) Passed LYNDSAY (test code = LYNDSAY) [id number] [facility]).[id number] 18:35:00* Test Item Value Reference Range Interpretation [...] 20150905) 0 NEGATIVE CONTROL (test code = 4598626) Passed POSITIVE CONTROL (test code = 4797829) Passed LYNDSAY (test code = LYNDSAY) [id number] [facility]).[id number] 18:35:00* Test Item Value Reference Range Interpretation Comme [facility] T-SPOT.TB (test code = 2691116) Negative SeeBelow Normal Value: Ne gativeA negative [...] CORRECTED FOR NEG CONTROL (test code = 7708627) 1 PANEL B SPOT COUNT CORRECTED FOR NEG CONTROL (test code = 0441158) 0 NEGATIVE CONTROL (test code = 6923321) Passed POSITIVE CONTROL (test code = 2961567) Passed LYNDSAY (test code = LYNDSAY) [id number] [facility]).[id number] 18:35:00* Test Item Value Reference Range Interpretation Comme [facility] T-SPOT.TB (test code = 5207285) Negative SeeBelow Normal Value: Ne gativeA negative [...] CORRECTED FOR NEG CONTROL (test code = 6465083) 1 PANEL B SPOT COUNT CORRECTED FOR NEG CONTROL (test code = 7312873) 0 NEGATIVE CONTROL (test code = 0965239) Passed POSITIVE CONTROL (test code = 3313595) Passed LYNDSAY (test code = LYNDSAY) [id number] [facility]).[id number] 18:35:00* Test Item Value Reference Range Interpretation [...] CORRECTED FOR NEG CONTROL (test code = 8048601) 0 NEGATIVE CONTROL (test code = 2721570) Passed POSITIVE CONTROL (test code = 1992526) Passed LYNDSAY (test code = LYNDSAY) [id number] [facility]).[id number] 18:35:00* Test Item Value Reference Range Interpretation Comme nts T-SPOT.TB (test code = 9581863) Negative SeeBelow Normal Value: Ne gativeA negative [...] 20150905) 0 NEGATIVE CONTROL (test code = 7327017) Passed POSITIVE CONTROL (test code = 20150907) Passed LYNDSAY (test code = LYNDSAY) [id number] [facility]).[id number] 18:35:00* Test Item Value Reference Range Interpretation Comme nts T-SPOT.TB (test code = 6957550) Negative SeeBelow Normal Value: Ne gativeA negative [...] 20150905) 0 NEGATIVE CONTROL (test code = 6653994) Passed POSITIVE CONTROL (test code = 0854199) Passed LYNDSAY (test code = LYNDSAY) [id number] [facility]).[id number] 18:35:00* Test Item Value Reference Range Interpretation Comme nts T-SPOT.TB (test code = 32059-4) Negative SeeBelow Normal Value: Ne gativeA negative [...] CORRECTED FOR NEG CONTROL (test code = 16410-1) 0 NEGATIVE CONTROL (test code = 09401-4) Passed POSITIVE CONTROL (test code = 91514-9) Passed LYNDSAY (test code = LYNDSAY) [id number] [facility]).[id number] 18:35:00* Test Item Value Reference Range Interpretation Comme nts T-SPOT.TB (test code = 36049-4) Negative SeeBelow Normal Value: Ne gativeA negative [...] CORRECTED FOR NEG CONTROL (test code = 59791-4) 0 NEGATIVE CONTROL (test code = 11362-1) Passed POSITIVE CONTROL (test code = 16462-1) Passed LYNDSAY (test code = LYNDSAY) [id number] [facility]).[id number] 18:35:00* Test Item Value Reference Range Interpretation Comme nts T-SPOT.TB (test code = 17323-0) Negative SeeBelow Normal Value: Ne gativeA negative [...] CORRECTED FOR NEG CONTROL (test code = 90153-3) 0 NEGATIVE CONTROL (test code = 80288-0) Passed POSITIVE CONTROL (test code = 60548-5) Passed LYNDSAY (test code = LYNDSAY) [id number] [facility]).[id number] 18:35:00* Test Item Value Reference Range Interpretation Comme nts T-SPOT.TB (test code = 07444-7) Negative SeeBelow Normal Value: Ne gativeA negative [...] CORRECTED FOR NEG CONTROL (test code = 05070-3) 0 NEGATIVE CONTROL (test code = 98405-0) Passed POSITIVE CONTROL (test code = 55116-0) Passed LYNDSAY (test code = LYNDSAY) [id number] [facility]).[id number] 18:35:00* Test Item Value Reference Range Interpretation Comme nts T-SPOT.TB (test code = 10984-3) Negative SeeBelow Normal Value: Ne gativeA negative [...] CORRECTED FOR NEG CONTROL (test code = 39935-4) 0 NEGATIVE CONTROL (test code = 40422-4) Passed POSITIVE CONTROL (test code = 67001-2) Passed LYNDSAY (test code = LYNDSAY) [id number] [facility]).[id number] 18:35:00* Test Item Value Reference Range Interpretation Comme nts T-SPOT.TB (test code = 37513-4) Negative SeeBelow Normal Value: Ne gativeA negative [...] CORRECTED FOR NEG CONTROL (test code = 63247-5) 0 NEGATIVE CONTROL (test code = 44876-8) Passed POSITIVE CONTROL (test code = 98914-5) Passed LYNDSAY (test code = LYNDSAY) [id number] [facility]).[id number] 18:35:00* Test Item Value Reference Range Interpretation Comme nts T-SPOT.TB (test code = 28076-8) Negative SeeBelow Normal Value: Ne gativeA negative [...] CORRECTED FOR NEG CONTROL (test code = 92988-3) 0 NEGATIVE CONTROL (test code = 19439-1) Passed POSITIVE CONTROL (test code = 49650-9) Passed LYNDSAY (test code = LYNDSAY) [id number] [facility]).[id number] 18:35:00* Test Item Value Reference Range Interpretation Comme nts T-SPOT.TB (test code = 46959-1) Negative SeeBelow Normal Value: Ne gativeA negative [...] CORRECTED FOR NEG CONTROL (test code = 72969-4) 0 NEGATIVE CONTROL (test code = 94032-9) Passed POSITIVE CONTROL (test code = 24396-8) Passed LYNDSAY (test code = LYNDSAY) [id number] [facility]).[id number] 18:35:00* Test Item Value Reference Range Interpretation Comme nts T-SPOT.TB (test code = 81205-8) Negative SeeBelow Normal Value: Ne gativeA negative [...] CORRECTED FOR NEG CONTROL (test code = 49729-2) 0 NEGATIVE CONTROL (test code = 23555-7) Passed POSITIVE CONTROL (test code = 53400-0) Passed LYNDSAY (test code = LYNDSAY) [id number] [facility]).[id number] 18:35:00* Test Item Value Reference Range Interpretation Comme [facility] T-SPOT.TB (test code = 06501-8) Negative SeeBelow Normal Value: Ne gativeA negative [...] CORRECTED FOR NEG CONTROL (test code = 93244-6) 0 NEGATIVE CONTROL (test code = 53051-7) Passed POSITIVE CONTROL (test code = 29750-2) Passed LYNDSAY (test code = LYNDSAY) [id number] [facility]).[id number] 18:35:00* Test Item Value Reference Range Interpretation Comme [facility] T-SPOT.TB (test code = 72101-8) Negative SeeBelow Normal Value: Ne gativeA negative [...] CORRECTED FOR NEG CONTROL (test code = 69274-6) 0 NEGATIVE CONTROL (test code = 85797-8) Passed POSITIVE CONTROL (test code = 14453-9) Passed LYNDSAY (test code = LYNDSAY) [id number] [facility]).[id number] 18:35:00* Test Item Value Reference Range Interpretation Comme nts T-SPOT.TB (test code = 12122-6) Negative SeeBelow Normal Value: Ne gativeA negative [...] CORRECTED FOR NEG CONTROL (test code = 76133-3) 0 NEGATIVE CONTROL (test code = 73065-8) Passed POSITIVE CONTROL (test code = 90624-3) Passed LYNDSAY (test code = LYNDSAY) [id number] [facility][id number] 18:35:00* Test Item Value Reference Range Interpretation Comme nts T-SPOT.TB (test code = 70032-1) Negative SeeBelow Normal Value: Ne gativeA negative [...] CORRECTED FOR NEG CONTROL (test code = 30762-3) 0 NEGATIVE CONTROL (test code = 78018-2) Passed POSITIVE CONTROL (test code = 45199-0) Passed LYNDSAY (test code = LYNDSAY) [id number] [facility][id number] 18:35:00* Test Item Value Reference Range Interpretation Comme nts T-SPOT.TB (test code = 41917-7) Negative SeeBelow Normal Value: Ne gativeA negative [...] CORRECTED FOR NEG CONTROL (test code = 97102-7) 0 NEGATIVE CONTROL (test code = 08450-2) Passed POSITIVE CONTROL (test code = 12265-8) Passed LYNDSAY (test code = LYNDSAY) [id number] [facility]).[id number] 18:35:00* Test Item Value Reference Range Interpretation Comme nts T-SPOT.TB (test code = 74681-9) Negative SeeBelow Normal Value: Ne gativeA negative [...] CORRECTED FOR NEG CONTROL (test code = 53139-8) 0 NEGATIVE CONTROL (test code = 31680-9) Passed POSITIVE CONTROL (test code = 36561-5) Passed LYNDSAY (test code = LYNDSAY) [id number] [facility]).[id number] 18:35:00* Test Item Value Reference Range Interpretation Comme nts T-SPOT.TB (test code = 45126-8) [facility]: Ne gativeA negative test result [...] CORRECTED FOR NEG CONTROL (test code = 29637-3) 0 NEGATIVE CONTROL (test code = 85281-1) Passed POSITIVE CONTROL (test code = 57274-7) Passed LYNDSAY (test code = LYNDSAY) [id number] [facility]).[id number] 18:35:00* Test Item Value Reference Range Interpretation Comme nts T-SPOT.TB (test code = 22804-6) Negative SeeBelow Normal Value: Ne gativeA negative [...] CORRECTED FOR NEG CONTROL (test code = 28741-6) 0 NEGATIVE CONTROL (test code = 34405-2) Passed POSITIVE CONTROL (test code = 97186-3) Passed LYNDSAY (test code = LYNDSAY) [id number] [facility]).[id number] 18:35:00* Test Item Value Reference Range Interpretation Comme nts T-SPOT.TB (test code = 66790-2) Negative SeeBelow Normal Value: Ne gativeA negative [...] CORRECTED FOR NEG CONTROL (test code = 02778-3) 0 NEGATIVE CONTROL (test code = 47208-3) Passed POSITIVE CONTROL (test code = 26762-0) Passed LYNDSAY (test code = LYNDSAY) [id number] [facility]).[id number] 18:35:00* Test Item Value Reference Range Interpretation Comme nts T-SPOT.TB (test code = 04979-1) Negative SeeBelow Normal Value: Ne gativeA negative [...] CORRECTED FOR NEG CONTROL (test code = 71578-3) 0 NEGATIVE CONTROL (test code = 34070-1) Passed POSITIVE CONTROL (test code = 72481-8) Passed LYNDSAY (test code = LYNDSAY) [id number] [facility][id number] 18:35:00* Test Item Value Reference Range Interpretation Comme nts T-SPOT.TB (test code = 72011-6) Negative SeeBelow Normal Value: Ne gativeA negative [...] CORRECTED FOR NEG CONTROL (test code = 48571-3) 0 NEGATIVE CONTROL (test code = 44020-2) Passed POSITIVE CONTROL (test code = 43907-9) Passed LYNDSAY (test code = LYNDSAY) [id number] [facility][id number] 18:35:00* Test Item Value Reference Range Interpretation Comme nts T-SPOT.TB (test code = 48838-8) Negative SeeBelow Normal Value: Ne gativeA negative [...] CORRECTED FOR NEG CONTROL (test code = 77518-9) 0 NEGATIVE CONTROL (test code = 26894-5) Passed POSITIVE CONTROL (test code = 54974-1) Passed LYNDSAY (test code = LYNDSAY) [id number] [facility][id number] 18:35:00* Test Item Value Reference Range Interpretation Comme nts T-SPOT.TB (test code = 26183-3) Negative SeeBelow Normal Value: Ne gativeA negative [...] CORRECTED FOR NEG CONTROL (test code = 73263-8) 0 NEGATIVE CONTROL (test code = 90587-4) Passed POSITIVE CONTROL (test code = 53548-5) Passed LYNDSAY (test code = LYNDSAY) [id number] [facility][id number] 18:35:00* Test Item Value Reference Range Interpretation Comme nts T-SPOT.TB (test code = 20820-3) Negative SeeBelow Normal Value: Ne gativeA negative [...] CORRECTED FOR NEG CONTROL (test code = 90295-9) 0 NEGATIVE CONTROL (test code = 87831-8) Passed POSITIVE CONTROL (test code = 83932-1) Passed LYNDSAY (test code = LYNDSAY) [id number] [facility][id number] 18:35:00* Test Item Value Reference Range Interpretation Comme nts T-SPOT.TB (test code = 26457-5) Negative SeeBelow Normal Value: Ne gativeA negative [...] CORRECTED FOR NEG CONTROL (test code = 63001-5) 0 NEGATIVE CONTROL (test code = 41353-3) Passed POSITIVE CONTROL (test code = 69460-6) Passed LYNDSAY (test code = LYNDSAY) [id number] [facility][id number] 18:35:00* Test Item Value Reference Range Interpretation Comme nts T-SPOT.TB (test code = 69958-6) Negative SeeBelow Normal Value: Ne gativeA negative [...] CORRECTED FOR NEG CONTROL (test code = 61629-0) 0 NEGATIVE CONTROL (test code = 29351-9) Passed POSITIVE CONTROL (test code = 60673-0) Passed LYNDSAY (test code = LYNDSAY) [id number] [facility][id number] 18:35:00* Test Item Value Reference Range Interpretation Comme nts T-SPOT.TB (test code = 31190-2) Negative SeeBelow Normal Value: Ne gativeA negative [...] CORRECTED FOR NEG CONTROL (test code = 79524-2) 0 NEGATIVE CONTROL (test code = 29252-7) Passed POSITIVE CONTROL (test code = 01817-3) Passed LYNDSAY (test code = LYNDSAY) [id number] [facility][id number] 18:35:00* Test Item Value Reference Range Interpretation Comme nts T-SPOT.TB (test code = 54014-4) Negative SeeBelow Normal Value: Ne gativeA negative [...] CORRECTED FOR NEG CONTROL (test code = 55649-8) 0 NEGATIVE CONTROL (test code = 48223-0) Passed POSITIVE CONTROL (test code = 34602-7) Passed LYNDSAY (test code = LYNDSAY) [id number] [facility][id number] 18:35:00* Test Item Value Reference Range Interpretation Comme nts T-SPOT.TB (test code = 12952-1) Negative SeeBelow Normal Value: Ne gativeA negative [...] CORRECTED FOR NEG CONTROL (test code = 52845-9) 0 NEGATIVE CONTROL (test code = 61437-1) Passed POSITIVE CONTROL (test code = 15080-2) Passed LYNDSAY (test code = LYNDSAY) [id number] [facility][id number] 18:35:00* Test Item Value Reference Range Interpretation Comme nts T-SPOT.TB (test code = 38817-6) Negative SeeBelow Normal Value: Ne gativeA negative [...] CORRECTED FOR NEG CONTROL (test code = 88697-4) 0 NEGATIVE CONTROL (test code = 54161-1) Passed POSITIVE CONTROL (test code = 73845-2) Passed LYNDSAY (test code = LYNDSAY) [id number] [facility][id number] 18:35:00* Test Item Value Reference Range Interpretation Comme nts T-SPOT.TB (test code = 8056536) Negative SeeBelow Normal Value: Ne gativeA negative [...] CORRECTED FOR NEG CONTROL (test code = 3539088) 1 PANEL B SPOT COUNT CORRECTED FOR NEG CONTROL (test code = 1033577) 0 NEGATIVE CONTROL (test code = 3432855) Passed POSITIVE CONTROL (test code = 9095630) Passed LYNDSAY (test code = LYNDSAY) [id number] [facility][id number] 18:35:00* Test Item Value Reference Range Interpretation Comme nts T-SPOT.TB (test code = 8232603) Negative SeeBelow Normal Value: Ne gativeA negative [...] CORRECTED FOR NEG CONTROL (test code = 7948550) 1 PANEL B SPOT COUNT CORRECTED FOR NEG CONTROL (test code = 6378662) 0 NEGATIVE CONTROL (test code = [id number]) Passed POSITIVE CONTROL (test code = 20150907) Passed LYNDSAY (test code = LYNDSAY) [id number] [facility][id number] 18:35:00* Test Item Value Reference Range Interpretation Comme nts T-SPOT.TB (test code = 4463001) Negative SeeBelow Normal Value: Ne gativeA negative [...] CORRECTED FOR NEG CONTROL (test code = 8376772) 1 PANEL B SPOT COUNT CORRECTED FOR NEG CONTROL (test code = 2839094) 0 NEGATIVE CONTROL (test code = 8395618) Passed POSITIVE CONTROL (test code = 3921057) Passed LYNDSAY (test code = LYNDSAY) [id number] [facility][id number] 18:35:00* Test Item Value Reference Range Interpretation Comme nts T-SPOT.TB (test code = 19313-0) Negative SeeBelow Normal Value: Ne gativeA negative [...] CORRECTED FOR NEG CONTROL (test code = 80834-3) 0 NEGATIVE CONTROL (test code = 56664-2) Passed POSITIVE CONTROL (test code = 32819-9) Passed LYNDSAY (test code = LYNDSAY) [id number] [facility] alan2583-02-80 13:41:18 Transesophageal Echocardiography Report (CHETAN) Demographics Patient Name YUE ROMERO Date of Study 06/16/2023 ESTELLE Gender Female Visit Number [id number] Race Room Number 1055 Number Date of 1970 Referring Physician Age 53 year(s) Svp Monetization Interpreting Physician Brian MDProcedure Type of Study [...] Tricuspid Valve Partially visualized. Pulmonic Valve Not visualized.[facility] 2023-[facility]-16 13:41:18Transesophageal Echocardiography Report (CHETAN) Demographics Patient Name YUE ROMERO Date of Study 06/16/2023 ESTELLE Gender Female Visit Number [id number] Race Room Number 1055 Number Date of 1970 Referring Physician Age 53 year(s) Svp Monetization Interpreting Physician Brian MDProcedure Type of Study [...] Tricuspid Valve Partially visualized. Pulmonic Valve Not visualized.[facility] 2023-[facility]-16 13:41:18Transesophageal Echocardiography Report (CHETAN) Demographics Patient Name YUE ROMERO Date of Study 06/16/2023 ESTELLE Gender Female Visit Number [id number] Race Room Number 1055 Number Date of 1970 Referring Physician Age 53 year(s) Svp Monetization Interpreting Physician Brian MDProcedure Type of Study [...] Tricuspid Valve Partially visualized. Pulmonic Valve Not visualized.[facility] rktuyf5236-49-71 09:55:41* Test Item Value Reference Range Interpretation Comme nts Result (test code = 6463-4) No MRSA isolated [facility] rbqmzg9563-67-35 09:55:41* Test Item Value Reference Range Interpretation Comme nts Result (test code = 6463-4) No MRSA isolated [facility] xpvznh9273-15-33 09:55:41* Test Item Value Reference Range Interpretation Comme nts Result (test code = 6463-4) No MRSA isolated [facility] xbgplt2190-77-26 09:55:41* Test Item Value Reference Range Interpretation Comme nts Result (test code = 6463-4) No MRSA isolated [facility] liezin5214-78-63 09:55:41* Test Item Value Reference Range Interpretation Comme nts Result (test code = 6463-4) No MRSA isolated [facility] iwoeiy4228-78-32 09:55:41* Test Item Value Reference Range Interpretation Comme nts Result (test code = 6463-4) No MRSA isolated [facility] iieuon8395-48-33 09:55:41* Test Item Value Reference Range Interpretation Comme nts Result (test code = 6463-4) No MRSA isolated [facility] zxqnsd9954-86-05 09:55:41* Test Item Value Reference Range Interpretation Comme nts Result (test code = 6463-4) No MRSA isolated [facility] nkqckw7379-07-80 09:55:41* Test Item Value Reference Range Interpretation Comme nts Result (test code = 6463-4) No MRSA isolated [facility] qzpfiz2643-61-14 09:55:41* Test Item Value Reference Range Interpretation Comme nts Result (test code = 6463-4) No MRSA isolated [facility] qlelyc0990-48-34 09:55:41* Test Item Value Reference Range Interpretation Comme nts Result (test code = 6463-4) No MRSA isolated [facility] xmzvkx9077-98-80 09:55:41* Test Item Value Reference Range Interpretation Comme nts Result (test code = 6463-4) No MRSA isolated [facility] isrjkv7632-29-29 09:55:41* Test Item Value Reference Range Interpretation Comme nts Result (test code = 6463-4) No MRSA isolated [facility] awtzfr9237-87-49 09:55:41* Test Item Value Reference Range Interpretation Comme nts Result (test code = 6463-4) No MRSA isolated [facility] qztdlg9696-53-29 09:55:41* Test Item Value Reference Range Interpretation Comme nts Result (test code = 6463-4) No MRSA isolated [facility] selxge1276-75-10 09:55:41* Test Item Value Reference Range Interpretation Comme nts Result (test code = 6463-4) No MRSA isolated [facility] erxmqi6649-19-35 09:55:41* Test Item Value Reference Range Interpretation Comme nts Result (test code = 6463-4) No MRSA isolated [facility] jbsacc8781-64-53 09:55:41* Test Item Value Reference Range Interpretation Comme nts Result (test code = 6463-4) No MRSA isolated [facility] qavpxp4395-33-69 09:55:41* Test Item Value Reference Range Interpretation Comme nts Result (test code = 6463-4) No MRSA isolated [facility] sjuqoh6813-77-70 09:55:41* Test Item Value Reference Range Interpretation Comme nts Result (test code = 6463-4) No MRSA isolated [facility] wusqir3928-06-94 09:55:41* Test Item Value Reference Range Interpretation Comme nts Result (test code = 6463-4) No MRSA isolated [facility] hufkzb3648-38-86 09:55:41* Test Item Value Reference Range Interpretation Comme nts Result (test code = 6463-4) No MRSA isolated [facility] rslomd5794-63-83 09:55:41* Test Item Value Reference Range Interpretation Comme nts Result (test code = 6463-4) No MRSA isolated [facility] zrwadl9104-75-06 09:55:41* Test Item Value Reference Range Interpretation Comme nts Result (test code = 6463-4) No MRSA isolated [facility] ipfhlf1302-83-94 09:55:41* Test Item Value Reference Range Interpretation Comme nts Result (test code = 6463-4) No MRSA isolated [facility] gdgxap1090-13-98 09:55:41* Test Item Value Reference Range Interpretation Comme nts Result (test code = 6463-4) No MRSA isolated [facility] bkmceo3468-04-99 09:55:41* Test Item Value Reference Range Interpretation Comme nts Result (test code = 6463-4) No MRSA isolated [facility] hhwmhv0421-22-20 09:55:41* Test Item Value Reference Range Interpretation Comme nts Result (test code = 6463-4) No MRSA isolated [facility] spnpab7790-96-42 09:55:41* Test Item Value Reference Range Interpretation Comme nts Result (test code = 6463-4) No MRSA isolated [facility] kdgczb5787-94-05 09:55:41* Test Item Value Reference Range Interpretation Comme nts Result (test code = 6463-4) No MRSA isolated [facility] swjlfm4236-99-06 09:55:41* Test Item Value Reference Range Interpretation Comme nts Result (test code = 6463-4) No MRSA isolated [facility] zbxwvt9359-41-71 09:55:41* Test Item Value Reference Range Interpretation Comme nts Result (test code = 6463-4) No MRSA isolated [facility] kpzuzp1822-45-79 09:55:41* Test Item Value Reference Range Interpretation Comme nts Result (test code = 6463-4) No MRSA isolated [facility] xvfgmb7934-86-28 09:55:41* Test Item Value Reference Range Interpretation Comme nts Result (test code = 6463-4) No MRSA isolated [facility] gmtqsb7785-38-50 09:55:41* Test Item Value Reference Range Interpretation Comme nts Result (test code = 6463-4) No MRSA isolated [facility] cbgrgh7975-28-15 09:55:41* Test Item Value Reference Range Interpretation Comme nts Result (test code = 6463-4) No MRSA isolated [facility] lffzkd8783-15-78 09:55:41* Test Item Value Reference Range Interpretation Comme nts Result (test code = 6463-4) No MRSA isolated [facility] yvizps5196-50-59 09:55:41* Test Item Value Reference Range Interpretation Comme nts Result (test code = 6463-4) No MRSA isolated [facility] txqmnd3591-48-96 09:55:41* Test Item Value Reference Range Interpretation Comme nts Result (test code = 6463-4) No MRSA isolated [facility] nfkzgb6597-68-65 09:55:41* Test Item Value Reference Range Interpretation Comme nts Result (test code = 6463-4) No MRSA isolated [facility] wrcxwt9478-40-93 09:55:41* Test Item Value Reference Range Interpretation Comme nts Result (test code = 6463-4) No MRSA isolated [facility] vrueks6162-74-87 09:55:41* Test Item Value Reference Range Interpretation Comme nts Result (test code = 6463-4) No MRSA isolated [facility] egmfbi7649-53-71 09:55:41* Test Item Value Reference Range Interpretation Comme nts Result (test code = 6463-4) No MRSA isolated [facility] fqomae3945-15-41 09:55:41* Test Item Value Reference Range Interpretation Comme nts Result (test code = 6463-4) No MRSA isolated [facility] ozfuaw5147-15-80 09:55:41* Test Item Value Reference Range Interpretation Comme nts Result (test code = 6463-4) No MRSA isolated [facility] yywtrx4700-50-69 09:55:41* Test Item Value Reference Range Interpretation Comme nts Result (test code = 6463-4) No MRSA isolated [facility] ssjmnj7875-29-42 09:55:41* Test Item Value Reference Range Interpretation Comme nts Result (test code = 6463-4) No MRSA isolated [facility]MR[facility] ZCJPLQ0865-61-83 09:55:41* Test Item Value Reference Range Interpretation Comme nts CULTURE (BEAKER) (test code = 1095) No MRSA isolated CRYPTOCOCCAL WJVDCOJ7624-93-70 15:50:36* Test Item Value Reference Range Interpretation Comme nts CRYPTOCOCCAL ANTIGEN, SERUM (BEAKER) (test code = 1828) Negative Negative, Interference SPUTUM CULTURE + GRAM VSPGH8970-30-51 10:30:11* Test Item Value Reference Range Interpretation [...] GRAM STAIN RESULT (BEAKER) (test code = 059629) 10-15 epithelial cells GRAM STAIN RESULT (BEAKER) (test code = 135849) 2+ gram positive cocci in chains and pairs GRAM STAIN RESULT (BEAKER) (test code = 057632) 1+ gram negative rods GRAM STAIN RESULT (BEAKER) (test code = 328978) 1+ yeast 2+ Normal respiratory rebel presentVANCOMYCIN LEVEL, XEMQDZ3515-19-29 06:41:26* Test Item Value Reference Range Interpretation Comme nts VANCOMYCIN TROUGH (BEAKER) ( test code = 522) 17.0 ug/mL 10.0-20.0 Electronics Tech ID - ADMINECHO W CONTRAST & [id number] 13:44:03Transthoracic Echocardiography Report (TTE) Demographics Patient Name YUE ROMERO Date of Study 06/14/2023 ESTELLE Gender Female Visit Number [id number] Race Room Number 1055 Number Date of 1970 Referring Aydee Go MD Physician Age 53 year(s) Svp Monetization James Albarran RDCS Interpreting Mauricio Iam-Hardik, Physician MDProcedure Typeof Study TTE procedure:2DECHO W DOPPLER(CW/PW/COLOR) (Routine)Indications:Suspected infective endocarditis with positive cultures or newmurmur.Clinical HistoryCOPDCVADiverticulitisHTNPADSeizureCardiac Cath ontrast Medium: Definity. Amount - 2 mlHeight: 63 inches Weight: 86.64 kg (191 lbs) BSA:1.9 m^2 BMI: 33.83 kg/m^2HR: 92 bpm BP: [...] sclerosis without evidence of stenosis. Mild aortic re gurgitation. 6. Unable to estimate peak systolic PA [...] enlarged (female - LVED vol >80ml/m2). Eccentric LVhypertrophy. Global LV systolic function moderately reduced . LVEF by Downs's method of disk assessment is moderately reduced (35-39%) . All of the LV segments are moderately hypokinetic . Grade 2diastolic dysfunction (moderately increased LA pressure). Left Atrium LA size is severely enlarged. Right Ventricle The right ventricular chamber size and systolic function are normal. Right AtriumRA cavity size is normal . Aortic Valve [...] Peak Velocity: 0.85 m/s Peak Gradient: 2.89 mmHgB[facility] HospitalECHO W CONTRAST & [id number] 13:44:03Transthoracic Echocardiography Report (TTE) Demographics Patient Name YUE ROMERO Date of Study 06/14/2023 ESTELLE Gender Female Visit Number [id number] Race Room Number 1055 Number Date of 1970 Referring Aydee Go MD Physician Age 53 year(s) Svp Monetization James Albarran RDCS Interpreting Physician Brian MDProcedure [...] Peak Velocity: 0.85 m/s Peak Gradient: 2.89 mmHgBarton Memorial HospitalECHO W CONTRAST & [id number] 13:44:03Transthoracic Echocardiography Report (TTE) Demographics Patient Name YUE ROMERO Date of Study 06/14/2023 ESTELLE Gender Female Visit Number [id number] Race Room Number 1055 Number Date of 1970 Referring Aydee Go MD Physician Age 53 year(s) Svp Monetization James Albarran RDCS Interpreting Mauricio Bonilla Physician [...] Velocity: 0.85 m/s Peak Gradient: 2.89 mmHgCH[facility]IN [id number] 09:26:42* Test Item Value Reference Range Interpretation Comme nts HEMOGLOBIN A1C ELECTROPHORESIS (BEAKER) (test code = 3811) 6.7 % See_Comment H [Automated me ssage] The system which generated this result transmitted reference range: <=5.6%. The reference range was not used to interpret this result as normal/abnormal. "The A1c is measured using a [facility]-certified method. HbA1c value equal to or greater than 6.5% as the diagnosis cutoff for diabetes. An HbA1c value of 5.7- 6.4% indicates increased risk for diabetes (prediabetes)."Electronics Tech ID - ADMOperator ID - ADMECG 12 [id number] 09:06:12Ventricular Rate 97 BPMAtrial Rate 97 BPMP-R Interval 146 msQRS Duration 96 msQ-T Interval 378 msQTC Calculation(Bazett) 480 msP Sanderson 68 degreesR Sanderson 107 degreesT Sanderson 18 degrees Suspect arm leadreversal, interpretation assumes no reversalNormal sinus rhythmRightward axisNonspecific T wave abnormalityAbnormal ECGWhen compared with ECG of 30-MAR-2023 13:06,QRS axis Shifted rightConfirmed by Luis Lopez ([id number]) on 06/14/2023 9:06:07 [facility] 12 yntp5577-17-45 09:06:12Ventricular Rate 97 BPMAtrial Rate 97 BPMP-R Interval 146 msQRS Duration 96 msQ-T Interval 378 msQTC Calculation(Bazett) 480 msP Sanderson 68 degreesR Sanderson 107 degreesT Sanderson 18 degrees Suspect arm leadreversal, interpretation assumes no reversalNormal sinus rhythmRightward axisNonspecific T wave abno rmalityAbnormal ECGWhen compared with ECG of 30-MAR-2023 13:06,QRS axis Shifted rightConfirmed by Luis Lopez ([id number]) on 06/14/2023 9:06:07 [facility] 12 [id number] 09:06:12Ventricular Rate 97 BPMAtrial Rate 97 BPMP-R Interval 146 msQRS Duration 96 msQ-T Interval 378 msQTC Calculation(Bazett) 480 msP Sanderson 68 degreesR Sanderson 107 degreesT Sanderson 18 degrees Suspect arm leadreversal, interpretation assumes no reversalNormal sinus rhythmRightward axisNonspecific T wave abnormalityAbnormal ECGWhen compared with ECG of 30-MAR-2023 13:06,QRS axis Shifted rightConfirmed by Luis Lopez ([id number]) on 06/14/2023 9:06:07 [facility] tzzp3378-34-87 09:06:12Ventricular Rate 97 BPMAtrial Rate 97 BPMP-R Interval 146 msQRS Duration 96 msQ-T Interval 378 msQTC Calculation(Bazett) 480 msP Sanderson 68 degreesR Sanderson 107 degreesT Sanderson 18 degrees Suspect arm leadreversal, interpretation assumes no reversalNormal sinus rhythmRightward axisNonspecific T wave abno rmalityAbnormal ECGWhen compared with ECG of 30-MAR-2023 13:06,QRS axis Shifted rightConfirmed by Luis Lopez ([id number]) on 06/14/2023 9:06:07 [facility] CenterBASIC METABOLIC [id number] 04:48:18* Test Item Value Reference Range Interpretation [...] GFR is not applicable for dialysis patients Electronics Tech ID - ADMINCBC (HEMOGRAM ONLY)2023-06-14 04:22:50* Test [...] 413) 0 /100 WBC 0-0 Strep pneumoniae dgmzmqq8399-75-29 23:34:41* Test Item Value Reference Range Interpretation Comme nts Strep pneumoniae Antigen (test code = 93831-0) Presumptive negative for pneumococcal pneumonia - see [...] the test. Lab Interpretation (test code = 40146-0) [facility] iaoggqv0800-23-28 23:34:41* Test Item Value Reference Range Interpretation Comme nts Strep pneumoniae Antigen (test code = 28214-0) Presumptive negative for pneumococcal pneumonia - see [...] the test. Lab Interpretation (test code = 55960-3) [facility] rguslxf8019-28-58 23:34:41* Test Item Value Reference Range Interpretation Comme nts Strep pneumoniae Antigen (test code = 67084-2) Presumptive negative for pneumococcal pneumonia - see [...] the test. Lab Interpretation (test code = 32440-1) [facility] ffftdqz1857-43-30 23:34:41* Test Item Value Reference Range Interpretation Comme nts Strep pneumoniae Antigen (test code = 27134-4) Presumptive negative for pneumococcal pneumonia - see [...] the test. Lab Interpretation (test code = 28171-8) [facility] oxwkrot4592-48-26 23:34:41* Test Item Value Reference Range Interpretation Comme nts Strep pneumoniae Antigen (test code = 70767-4) Presumptive negative for pneumococcal pneumonia - see [...] the test. Lab Interpretation (test code = 57766-8) [facility] vjcsekv3240-39-08 23:34:41* Test Item Value Reference Range Interpretation Comme nts Strep pneumoniae Antigen (test code = 04892-9) Presumptive negative for pneumococcal pneumonia - see [...] the test. Lab Interpretation (test code = 56013-3) [facility] ztfbyjj3573-29-94 23:34:41* Test Item Value Reference Range Interpretation Comme nts Strep pneumoniae Antigen (test code = 46453-5) Presumptive negative for pneumococcal pneumonia - see [...] the test. Lab Interpretation (test code = 89308-7) [facility] kfeumlh4695-51-29 23:34:41* Test Item Value Reference Range Interpretation Comme nts Strep pneumoniae Antigen (test code = 27655-9) Presumptive negative for pneumococcal pneumonia - see [...] the test. Lab Interpretation (test code = 76059-4) [facility] gwlvgju6634-01-32 23:34:41* Test Item Value Reference Range Interpretation Comme nts Strep pneumoniae Antigen (test code = 83029-3) Presumptive negative for pneumococcal pneumonia - see [...] the test. Lab Interpretation (test code = 39658-5) [facility] cvpbmzq4992-35-19 23:34:41* Test Item Value Reference Range Interpretation Comme nts Strep pneumoniae Antigen (test code = 36337-9) Presumptive negative for pneumococcal pneumonia - see [...] the test. Lab Interpretation (test code = 97067-5) [facility] nlznbjc0044-44-85 23:34:41* Test Item Value Reference Range Interpretation Comme nts Strep pneumoniae Antigen (test code = 14653-4) Presumptive negative for pneumococcal pneumonia - see [...] the test. Lab Interpretation (test code = 01662-3) [facility] xlzvpdw9742-53-71 23:34:41* Test Item Value Reference Range Interpretation Comme nts Strep pneumoniae Antigen (test code = 70465-4) Presumptive negative for pneumococcal pneumonia - see [...] the test. Lab Interpretation (test code = 77162-7) [facility] lrxomqb1300-75-57 23:34:41* Test Item Value Reference Range Interpretation Comme nts Strep pneumoniae Antigen (test code = 16040-9) Presumptive negative for pneumococcal pneumonia - see [...] the test. Lab Interpretation (test code = 97872-6) [facility] zmhoewl5436-58-53 23:34:41* Test Item Value Reference Range Interpretation Comme nts Strep pneumoniae Antigen (test code = 37077-3) Presumptive negative for pneumococcal pneumonia - see [...] the test. Lab Interpretation (test code = 10034-1) [facility] nigejxl5406-15-32 23:34:41* Test Item Value Reference Range Interpretation Comme nts Strep pneumoniae Antigen (test code = 46104-7) Presumptive negative for pneumococcal pneumonia - see [...] the test. Lab Interpretation (test code = 95288-7) [facility] qatstsm8927-02-88 23:34:41* Test Item Value Reference Range Interpretation Comme nts Strep pneumoniae Antigen (test code = 99899-1) Presumptive negative for pneumococcal pneumonia - see [...] the test. Lab Interpretation (test code = 09093-9) [facility] uxijmjx8500-24-95 23:34:41* Test Item Value Reference Range Interpretation Comme nts Strep pneumoniae Antigen (test code = 84419-2) Presumptive negative for pneumococcal pneumonia - see [...] the test. Lab Interpretation (test code = 87923-8) [facility] rvcfkmd6406-14-90 23:34:41* Test Item Value Reference Range Interpretation Comme nts Strep pneumoniae Antigen (test code = 28756-7) Presumptive negative for pneumococcal pneumonia - see [...] the test. Lab Interpretation (test code = 89072-4) [facility] sayyony8186-06-92 23:34:41* Test Item Value Reference Range Interpretation Comme nts Strep pneumoniae Antigen (test code = 99002-1) Presumptive negative for pneumococcal pneumonia - see [...] the test. Lab Interpretation (test code = 27633-3) [facility] fjckesk2252-34-56 23:34:41* Test Item Value Reference Range Interpretation Comme nts Strep pneumoniae Antigen (test code = 62637-9) Presumptive negative for pneumococcal pneumonia - see [...] the test. Lab Interpretation (test code = 80249-3) [facility] jqvdhjn8950-52-09 23:34:41* Test Item Value Reference Range Interpretation Comme nts Strep pneumoniae Antigen (test code = 35717-3) Presumptive negative for pneumococcal pneumonia - see [...] the test. Lab Interpretation (test code = 92588-4) [facility] iuodjmc5882-57-56 23:34:41* Test Item Value Reference Range Interpretation Comme nts Strep pneumoniae Antigen (test code = 12561-2) Presumptive negative for pneumococcal pneumonia - see [...] the test. Lab Interpretation (test code = 55321-1) [facility] fscafac2075-10-20 23:34:41* Test Item Value Reference Range Interpretation Comme nts Strep pneumoniae Antigen (test code = 52219-0) Presumptive negative for pneumococcal pneumonia - see [...] the test. Lab Interpretation (test code = 70871-3) [facility] euyyzgv3319-98-71 23:34:41* Test Item Value Reference Range Interpretation Comme nts Strep pneumoniae Antigen (test code = 78663-2) Presumptive negative for pneumococcal pneumonia - see [...] the test. Lab Interpretation (test code = 87667-6) [facility] unmdsub7838-70-23 23:34:41* Test Item Value Reference Range Interpretation Comme nts Strep pneumoniae Antigen (test code = 69285-3) Presumptive negative for pneumococcal pneumonia - see [...] the test. Lab Interpretation (test code = 95085-1) [facility] eykmvzf3434-19-25 23:34:41* Test Item Value Reference Range Interpretation Comme nts Strep pneumoniae Antigen (test code = 50137-5) Presumptive negative for pneumococcal pneumonia - see [...] the test. Lab Interpretation (test code = 78873-9) [facility] xaealcr7986-52-53 23:34:41* Test Item Value Reference Range Interpretation Comme nts Strep pneumoniae Antigen (test code = 44316-8) Presumptive negative for pneumococcal pneumonia - see [...] the test. Lab Interpretation (test code = 59610-9) [facility] qwevjzy1794-21-15 23:34:41* Test Item Value Reference Range Interpretation Comme nts Strep pneumoniae Antigen (test code = 97781-4) Presumptive negative for pneumococcal pneumonia - see [...] the test. Lab Interpretation (test code = 09533-8) [facility] irqzsde6010-75-21 23:34:41* Test Item Value Reference Range Interpretation Comme nts Strep pneumoniae Antigen (test code = 12559-0) Presumptive negative for pneumococcal pneumonia - see [...] the test. Lab Interpretation (test code = 17355-8) [facility] [id number] 23:34:41* Test Item Value Reference Range Interpretation Comme nts Strep pneumoniae Antigen (test code = 43904-9) Presumptive negative for pneumococcal pneumonia - see [...] the test. Lab Interpretation (test code = 86603-4) [facility] [id number] 23:34:41* Test Item Value Reference Range Interpretation Comme nts Strep pneumoniae Antigen (test code = 12058-3) Presumptive negative for pneumococcal pneumonia - see [...] the test. Lab Interpretation (test code = 31374-0) [facility] [id number] 23:34:41* Test Item Value Reference Range Interpretation Comme nts Strep pneumoniae Antigen (test code = 32125-6) Presumptive negative for pneumococcal pneumonia - see [...] the test. Lab Interpretation (test code = 28456-8) [facility] [id number] 23:34:41* Test Item Value Reference Range Interpretation Comme nts Strep pneumoniae Antigen (test code = 80362-2) Presumptive negative for pneumococcal pneumonia - see [...] the test. Lab Interpretation (test code = 20400-4) [facility] [id number] 23:34:41* Test Item Value Reference Range Interpretation Comme nts Strep pneumoniae Antigen (test code = 42728-5) Presumptive negative for pneumococcal pneumonia - see [...] the test. Lab Interpretation (test code = 14587-5) [facility] [id number] 23:34:41* Test Item Value Reference Range Interpretation Comme nts Strep pneumoniae Antigen (test code = 08561-1) Presumptive negative for pneumococcal pneumonia - see [...] the test. Lab Interpretation (test code = 59754-0) [facility] [id number] 23:34:41* Test Item Value Reference Range Interpretation Comme nts Strep pneumoniae Antigen (test code = 91134-2) Presumptive negative for pneumococcal pneumonia - see [...] the test. Lab Interpretation (test code = 17359-3) [facility] [id number] 23:34:41* Test Item Value Reference Range Interpretation Comme nts Strep pneumoniae Antigen (test code = 36315-9) Presumptive negative for pneumococcal pneumonia - see [...] the test. Lab Interpretation (test code = 78008-0) [facility] [id number] 23:34:41* Test Item Value Reference Range Interpretation Comme nts Strep pneumoniae Antigen (test code = 70353-2) Presumptive negative for pneumococcal pneumonia - see [...] the test. Lab Interpretation (test code = 61099-3) [facility] [id number] 23:34:41* Test Item Value Reference Range Interpretation Comme nts Strep pneumoniae Antigen (test code = 07916-0) Presumptive negative for pneumococcal pneumonia - see [...] the test. Lab Interpretation (test code = 10799-0) [facility] [id number] 23:34:41* Test Item Value Reference Range Interpretation Comme nts Strep pneumoniae Antigen (test code = 68509-8) Presumptive negative for pneumococcal pneumonia - see [...] the test. Lab Interpretation (test code = 50242-1) [facility] [id number] 23:34:41* Test Item Value Reference Range Interpretation Comme nts Strep pneumoniae Antigen (test code = 15455-9) Presumptive negative for pneumococcal pneumonia - see [...] the test. Lab Interpretation (test code = 24250-0) [facility] [id number] 23:34:41* Test Item Value Reference Range Interpretation Comme nts Strep pneumoniae Antigen (test code = 30855-4) Presumptive negative for pneumococcal pneumonia - see [...] the test. Lab Interpretation (test code = 18216-4) [facility] [id number] 23:34:41* Test Item Value Reference Range Interpretation Comme nts Strep pneumoniae Antigen (test code = 16228-8) Presumptive negative for pneumococcal pneumonia - see [...] the test. Lab Interpretation (test code = 31569-2) [facility] [id number] 23:34:41* Test Item Value Reference Range Interpretation Comme nts Strep pneumoniae Antigen (test code = 30089-1) Presumptive negative for pneumococcal pneumonia - see [...] the test. Lab Interpretation (test code = 13770-7) [facility] [id number] 23:34:41* Test Item Value Reference Range Interpretation Comme nts Strep pneumoniae Antigen (test code = 43909-2) Presumptive negative for pneumococcal pneumonia - see [...] the test. Lab Interpretation (test code = 17615-6) [facility] [id number] 23:34:41* Test Item Value Reference Range Interpretation Comme nts Strep pneumoniae Antigen (test code = 44385-4) Presumptive negative for pneumococcal pneumonia - see [...] the test. Lab Interpretation (test code = 73072-0) [facility] [id number] 23:34:41* Test Item Value Reference Range Interpretation Comme nts Strep pneumoniae Antigen (test code = 00217-1) Presumptive negative for pneumococcal pneumonia - see [...] the test. Lab Interpretation (test code = 06660-7) [facility] [id number] 23:34:41* Test Item Value Reference Range Interpretation [...] detection limit of the test. Legionella antigen, [id number] 23:29:07* Test Item Value Reference Range Interpretation Comme nts Legionella Urine Antigen (test code = 10374-9) Negative - see comment Negative Negative for L. pneumophila serogroup 1 antigen, suggesting no recent or current infection with this serogroup. Legionellosis cannot be ruled out since other serogroups and species may cause disease. Lab Interpretation (test code = 53106-5) [facility] [id number] 23:29:07* Test Item Value Reference Range Interpretation Comme nts Legionella Urine Antigen (test code = 19027-7) Negative - see comment Negative Negative for L. pneumophila serogroup 1 antigen, suggesting no recent or current infection with this serogroup. Legionellosis cannot be ruled out since other serogroups and species may cause disease. Lab Interpretation (test code = 76025-1) [facility], [id number] 23:29:07* Test Item Value Reference Range Interpretation Comme [facility] Legionella Urine Antigen (test code = 17544-2) Negative - see comment Negative Negative for L. pneumophila serogroup 1 antigen, suggesting no recent or current infection with this serogroup. Legionellosis cannot be ruled out since other serogroups and species may cause disease. Lab Interpretation (test code = 46150-6) [facility], [id number] 23:29:07* Test Item Value Reference Range Interpretation Comme [facility] Legionella Urine Antigen (test code = 09932-5) Negative - see comment Negative Negative for L. pneumophila serogroup 1 antigen, suggesting no recent or current infection with this serogroup. Legionellosis cannot be ruled out since other serogroups and species may cause disease. Lab Interpretation (test code = 51836-1) [facility], [id number] 23:29:07* Test Item Value Reference Range Interpretation Comme nts Legionella Urine Antigen (test code = 39552-2) Negative - see comment Negative Negative for L. pneumophila serogroup 1 antigen, suggesting no recent or current infection with this serogroup. Legionellosis cannot be ruled out since other serogroups and species may cause disease. Lab Interpretation (test code = 88033-3) [facility], [id number] 23:29:07* Test Item Value Reference Range Interpretation Comme nts Legionella Urine Antigen (test code = 73330-3) Negative - see comment Negative Negative for L. pneumophila serogroup 1 antigen, suggesting no recent or current infection with this serogroup. Legionellosis cannot be ruled out since other serogroups and species may cause disease. Lab Interpretation (test code = 89025-5) [facility], [id number] 23:29:07* Test Item Value Reference Range Interpretation Comme nts Legionella Urine Antigen (test code = 46317-9) Negative - see comment Negative Negative for L. pneumophila serogroup 1 antigen, suggesting no recent or current infection with this serogroup. Legionellosis cannot be ruled out since other serogroups and species may cause disease. Lab Interpretation (test code = 19460-2) [facility], [id number] 23:29:07* Test Item Value Reference Range Interpretation Comme nts Legionella Urine Antigen (test code = 46567-8) Negative - see comment Negative Negative for L. pneumophila serogroup 1 antigen, suggesting no recent or current infection with this serogroup. Legionellosis cannot be ruled out since other serogroups and species may cause disease. Lab Interpretation (test code = 98713-1) [facility], [id number] 23:29:07* Test Item Value Reference Range Interpretation Comme nts Legionella Urine Antigen (test code = 60386-6) Negative - see comment Negative Negative for L. pneumophila serogroup 1 antigen, suggesting no recent or current infection with this serogroup. Legionellosis cannot be ruled out since other serogroups and species may cause disease. Lab Interpretation (test code = 93677-6) [facility], [id number] 23:29:07* Test Item Value Reference Range Interpretation Comme nts Legionella Urine Antigen (test code = 77822-2) Negative - see comment Negative Negative for L. pneumophila serogroup 1 antigen, suggesting no recent or current infection with this serogroup. Legionellosis cannot be ruled out since other serogroups and species may cause disease. Lab Interpretation (test code = 58809-7) [facility], [id number] 23:29:07* Test Item Value Reference Range Interpretation Comme nts Legionella Urine Antigen (test code = 97034-6) Negative - see comment Negative Negative for L. pneumophila serogroup 1 antigen, suggesting no recent or current infection with this serogroup. Legionellosis cannot be ruled out since other serogroups and species may cause disease. Lab Interpretation (test code = 79400-2) [facility], [id number] 23:29:07* Test Item Value Reference Range Interpretation Comme nts Legionella Urine Antigen (test code = 77447-4) Negative - see comment Negative Negative for L. pneumophila serogroup 1 antigen, suggesting no recent or current infection with this serogroup. Legionellosis cannot be ruled out since other serogroups and species may cause disease. Lab Interpretation (test code = 32834-1) [facility], [id number] 23:29:07* Test Item Value Reference Range Interpretation Comme nts Legionella Urine Antigen (test code = 06285-2) Negative - see comment Negative Negative for L. pneumophila serogroup 1 antigen, suggesting no recent or current infection with this serogroup. Legionellosis cannot be ruled out since other serogroups and species may cause disease. Lab Interpretation (test code = 46081-3) [facility], [id number] 23:29:07* Test Item Value Reference Range Interpretation Comme nts Legionella Urine Antigen (test code = 54566-0) Negative - see comment Negative Negative for L. pneumophila serogroup 1 antigen, suggesting no recent or current infection with this serogroup. Legionellosis cannot be ruled out since other serogroups and species may cause disease. Lab Interpretation (test code = 34024-2) [facility], [id number] 23:29:07* Test Item Value Reference Range Interpretation Comme nts Legionella Urine Antigen (test code = 07292-1) Negative - see comment Negative Negative for L. pneumophila serogroup 1 antigen, suggesting no recent or current infection with this serogroup. Legionellosis cannot be ruled out since other serogroups and species may cause disease. Lab Interpretation (test code = 00063-9) [facility], [id number] 23:29:07* Test Item Value Reference Range Interpretation Comme nts Legionella Urine Antigen (test code = 13705-2) Negative - see comment Negative Negative for L. pneumophila serogroup 1 antigen, suggesting no recent or current infection with this serogroup. Legionellosis cannot be ruled out since other serogroups and species may cause disease. Lab Interpretation (test code = 18330-3) [facility], [id number] 23:29:07* Test Item Value Reference Range Interpretation Comme nts Legionella Urine Antigen (test code = 97695-6) Negative - see comment Negative Negative for L. pneumophila serogroup 1 antigen, suggesting no recent or current infection with this serogroup. Legionellosis cannot be ruled out since other serogroups and species may cause disease. Lab Interpretation (test code = 12713-8) [facility], [id number] 23:29:07* Test Item Value Reference Range Interpretation Comme nts Legionella Urine Antigen (test code = 48616-8) Negative - see comment Negative Negative for L. pneumophila serogroup 1 antigen, suggesting no recent or current infection with this serogroup. Legionellosis cannot be ruled out since other serogroups and species may cause disease. Lab Interpretation (test code = 08912-0) [facility], [id number] 23:29:07* Test Item Value Reference Range Interpretation Comme nts Legionella Urine Antigen (test code = 98648-1) Negative - see comment Negative Negative for L. pneumophila serogroup 1 antigen, suggesting no recent or current infection with this serogroup. Legionellosis cannot be ruled out since other serogroups and species may cause disease. Lab Interpretation (test code = 14621-9) [facility], [id number] 23:29:07* Test Item Value Reference Range Interpretation Comme nts Legionella Urine Antigen (test code = 64300-6) Negative - see comment Negative Negative for L. pneumophila serogroup 1 antigen, suggesting no recent or current infection with this serogroup. Legionellosis cannot be ruled out since other serogroups and species may cause disease. Lab Interpretation (test code = 65587-2) [facility], [id number] 23:29:07* Test Item Value Reference Range Interpretation Comme nts Legionella Urine Antigen (test code = 23582-2) Negative - see comment Negative Negative for L. pneumophila serogroup 1 antigen, suggesting no recent or current infection with this serogroup. Legionellosis cannot be ruled out since other serogroups and species may cause disease. Lab Interpretation (test code = 00010-4) [facility], [id number] 23:29:07* Test Item Value Reference Range Interpretation Comme nts Legionella Urine Antigen (test code = 82268-7) Negative - see comment Negative Negative for L. pneumophila serogroup 1 antigen, suggesting no recent or current infection with this serogroup. Legionellosis cannot be ruled out since other serogroups and species may cause disease. Lab Interpretation (test code = 70437-8) [facility], [id number] 23:29:07* Test Item Value Reference Range Interpretation Comme nts Legionella Urine Antigen (test code = 45055-5) Negative - see comment Negative Negative for L. pneumophila serogroup 1 antigen, suggesting no recent or current infection with this serogroup. Legionellosis cannot be ruled out since other serogroups and species may cause disease. Lab Interpretation (test code = 91890-7) [facility], [id number] 23:29:07* Test Item Value Reference Range Interpretation Comme nts Legionella Urine Antigen (test code = 97710-1) Negative - see comment Negative Negative for L. pneumophila serogroup 1 antigen, suggesting no recent or current infection with this serogroup. Legionellosis cannot be ruled out since other serogroups and species may cause disease. Lab Interpretation (test code = 95378-6) [facility], [id number] 23:29:07* Test Item Value Reference Range Interpretation Comme nts Legionella Urine Antigen (test code = 16723-9) Negative - see comment Negative Negative for L. pneumophila serogroup 1 antigen, suggesting no recent or current infection with this serogroup. Legionellosis cannot be ruled out since other serogroups and species may cause disease. Lab Interpretation (test code = 96452-3) [facility], [id number] 23:29:07* Test Item Value Reference Range Interpretation Comme nts Legionella Urine Antigen (test code = 48445-1) Negative - see comment Negative Negative for L. pneumophila serogroup 1 antigen, suggesting no recent or current infection with this serogroup. Legionellosis cannot be ruled out since other serogroups and species may cause disease. Lab Interpretation (test code = 15689-4) [facility], [id number] 23:29:07* Test Item Value Reference Range Interpretation Comme nts Legionella Urine Antigen (test code = 20373-5) Negative - see comment Negative Negative for L. pneumophila serogroup 1 antigen, suggesting no recent or current infection with this serogroup. Legionellosis cannot be ruled out since other serogroups and species may cause disease. Lab Interpretation (test code = 36608-4) [facility], [id number] 23:29:07* Test Item Value Reference Range Interpretation Comme nts Legionella Urine Antigen (test code = 83634-7) Negative - see comment Negative Negative for L. pneumophila serogroup 1 antigen, suggesting no recent or current infection with this serogroup. Legionellosis cannot be ruled out since other serogroups and species may cause disease. Lab Interpretation (test code = 30223-7) [facility], [id number] 23:29:07* Test Item Value Reference Range Interpretation Comme nts Legionella Urine Antigen (test code = 61905-0) Negative - see comment Negative Negative for L. pneumophila serogroup 1 antigen, suggesting no recent or current infection with this serogroup. Legionellosis cannot be ruled out since other serogroups and species may cause disease. Lab Interpretation (test code = 98917-3) [facility], [id number] 23:29:07* Test Item Value Reference Range Interpretation Comme nts Legionella Urine Antigen (test code = 59097-3) Negative - see comment Negative Negative for L. pneumophila serogroup 1 antigen, suggesting no recent or current infection with this serogroup. Legionellosis cannot be ruled out since other serogroups and species may cause disease. Lab Interpretation (test code = 84098-3) [facility], [id number] 23:29:07* Test Item Value Reference Range Interpretation Comme nts Legionella Urine Antigen (test code = 72752-4) Negative - see comment Negative Negative for L. pneumophila serogroup 1 antigen, suggesting no recent or current infection with this serogroup. Legionellosis cannot be ruled out since other serogroups and species may cause disease. Lab Interpretation (test code = 75239-8) [facility], [id number] 23:29:07* Test Item Value Reference Range Interpretation Comme nts Legionella Urine Antigen (test code = 88311-3) Negative - see comment Negative Negative for L. pneumophila serogroup 1 antigen, suggesting no recent or current infection with this serogroup. Legionellosis cannot be ruled out since other serogroups and species may cause disease. Lab Interpretation (test code = 80420-6) [facility], [id number] 23:29:07* Test Item Value Reference Range Interpretation Comme nts Legionella Urine Antigen (test code = 83960-6) Negative - see comment Negative Negative for L. pneumophila serogroup 1 antigen, suggesting no recent or current infection with this serogroup. Legionellosis cannot be ruled out since other serogroups and species may cause disease. Lab Interpretation (test code = 28690-5) [facility], [id number] 23:29:07* Test Item Value Reference Range Interpretation Comme nts Legionella Urine Antigen (test code = 49976-6) Negative - see comment Negative Negative for L. pneumophila serogroup 1 antigen, suggesting no recent or current infection with this serogroup. Legionellosis cannot be ruled out since other serogroups and species may cause disease. Lab Interpretation (test code = 67626-7) [facility], [id number] 23:29:07* Test Item Value Reference Range Interpretation Comme nts Legionella Urine Antigen (test code = 77609-3) Negative - see comment Negative Negative for L. pneumophila serogroup 1 antigen, suggesting no recent or current infection with this serogroup. Legionellosis cannot be ruled out since other serogroups and species may cause disease. Lab Interpretation (test code = 49965-6) [facility], [id number] 23:29:07* Test Item Value Reference Range Interpretation Comme nts Legionella Urine Antigen (test code = 25942-5) Negative - see comment Negative Negative for L. pneumophila serogroup 1 antigen, suggesting no recent or current infection with this serogroup. Legionellosis cannot be ruled out since other serogroups and species may cause disease. Lab Interpretation (test code = 51950-4) [facility], [id number] 23:29:07* Test Item Value Reference Range Interpretation Comme nts Legionella Urine Antigen (test code = 09312-8) Negative - see comment Negative Negative for L. pneumophila serogroup 1 antigen, suggesting no recent or current infection with this serogroup. Legionellosis cannot be ruled out since other serogroups and species may cause disease. Lab Interpretation (test code = 15561-9) [facility], [id number] 23:29:07* Test Item Value Reference Range Interpretation Comme nts Legionella Urine Antigen (test code = 18068-1) Negative - see comment Negative Negative for L. pneumophila serogroup 1 antigen, suggesting no recent or current infection with this serogroup. Legionellosis cannot be ruled out since other serogroups and species may cause disease. Lab Interpretation (test code = 68186-8) [facility], [id number] 23:29:07* Test Item Value Reference Range Interpretation Comme nts Legionella Urine Antigen (test code = 44027-1) Negative - see comment Negative Negative for L. pneumophila serogroup 1 antigen, suggesting no recent or current infection with this serogroup. Legionellosis cannot be ruled out since other serogroups and species may cause disease. Lab Interpretation (test code = 00221-6) [facility], [id number] 23:29:07* Test Item Value Reference Range Interpretation Comme nts Legionella Urine Antigen (test code = 96980-4) Negative - see comment Negative Negative for L. pneumophila serogroup 1 antigen, suggesting no recent or current infection with this serogroup. Legionellosis cannot be ruled out since other serogroups and species may cause disease. Lab Interpretation (test code = 87531-6) [facility], [id number] 23:29:07* Test Item Value Reference Range Interpretation Comme nts Legionella Urine Antigen (test code = 33289-9) Negative - see comment Negative Negative for L. pneumophila serogroup 1 antigen, suggesting no recent or current infection with this serogroup. Legionellosis cannot be ruled out since other serogroups and species may cause disease. Lab Interpretation (test code = 18434-7) Normal [facility] HospitalLegionella antigen, [id number] 23:29:07* Test Item Value Reference Range Interpretation Comme nts Legionella Urine Antigen (test code = 55627-5) Negative - see comment Negative Negative for L. pneumophila serogroup 1 antigen, suggesting no recent or current infection with this serogroup. Legionellosis cannot be ruled out since other serogroups and species may cause disease. Lab Interpretation (test code = 61146-2) Normal [facility] HospitalLegionella antigen, [id number] 23:29:07* Test Item Value Reference Range Interpretation Comme nts Legionella Urine Antigen (test code = 12750-5) Negative - see comment Negative Negative for L. pneumophila serogroup 1 antigen, suggesting no recent or current infection with this serogroup. Legionellosis cannot be ruled out since other serogroups and species may cause disease. Lab Interpretation (test code = 79784-3) Normal [facility] HospitalLegionella antigen, [id number] 23:29:07* Test Item Value Reference Range Interpretation Comme nts Legionella Urine Antigen (test code = 87350-1) Negative - see comment Negative Negative for L. pneumophila serogroup 1 antigen, suggesting no recent or current infection with this serogroup. Legionellosis cannot be ruled out since other serogroups and species may cause disease. Lab Interpretation (test code = 06946-9) Normal [facility] HospitalLegionella antigen, [id number] 23:29:07* Test Item Value Reference Range Interpretation Comme nts Legionella Urine Antigen (test code = 99865-7) Negative - see comment Negative Negative for L. pneumophila serogroup 1 antigen, suggesting no recent or current infection with this serogroup. Legionellosis cannot be ruled out since other serogroups and species may cause disease. Lab Interpretation (test code = 64785-0) Normal [facility] HospitalLegionella antigen, [id number] 23:29:07* Test Item Value Reference Range Interpretation Comme nts Legionella Urine Antigen (test code = 93856-7) Negative - see comment Negative Negative for L. pneumophila serogroup 1 antigen, suggesting no recent or current infection with this serogroup. Legionellosis cannot be ruled out since other serogroups and species may cause disease. Lab Interpretation (test code = 48898-9) Normal [facility] HospitalLegionella antigen, [id number] 23:29:07* Test Item Value Reference Range Interpretation Comme nts Legionella Urine Antigen (test code = 67475-3) Negative - see comment Negative Negative for L. pneumophila serogroup 1 antigen, suggesting no recent or current infection with this serogroup. Legionellosis cannot be ruled out since other serogroups and species may cause disease. Lab Interpretation (test code = 99564-7) Normal [facility] HospitalLEGIONELLA ANTIGEN, [id number] 23:29:07* Test Item Value Reference Range Interpretation Comme nts L. PNEUMOPHILA SEROGP 1 UR AG (BEAKER) (test code = 1156) Negative - see comment Negative Negative for L. pneumophila serogroup 1 antigen, suggesting no recent or current infection with this serogroup. Legionellosis cannot be ruled out since other serogroups and species may cause disease. Venous doppler arm, [id number] 20:05:32PV LAB - Upper Extremities Veins Demographics Patient Name YUE ROMERO Date of Study 06/13/2023 ESTELLE Age 53 Visit Number [id number] Gender Female Accession Number [id number] Date of 1970 Referring Audrastalin Hamilton Dodiecarlottadebra Room Number 1055 Physician Svp Monetization Lisa Ruiz Interpreting John Solorio, Physician FellowProcedureType [...] in cm/s ; Diameters are measured in [facility] UCLAVenous doppler arm, [id number] 20:05:32PV LAB - Upper Extremities Veins Demographics Patient Name YUE ROMERO Date of Study 06/13/2023 ESTELLE Age 53 Visit Number [id number] Gender Female Accession Number [id number] Date of 1970 Referring Marianela Burgess Room Number 1055 Physician Svp Monetization Lisa Ruiz Interpreting John Solorio, Physician FellowProcedureType [...] in cm/s ; Diameters are measured in [facility] UCLAVenous doppler arm, [id number] 20:05:32PV LAB - Upper Extremities Veins Demographics Patient Name YUE ROMERO Date of Study 06/13/2023 ESTELLE Age 53 Visit Number [id number] Gender Female Accession Number [id number] Date ofBirth 1970 Referring radha Burgess Room Number 1055 Physician Svp Monetization Lisa Ruiz Interpreting John Solorio, Physician FellowProcedureType [...] in cm/s ; Diameters are measured in [facility] UCLAHIV-1 ANTIGEN WITH HIV-1/2 [id number] 18:36:40* Test Item Value Reference Range Interpretation Comme nts HIV-1 ANTIGEN WITH HIV 1\\T\\2 ANTIBODY (2) (LATOYA) (test code = 2586) Nonreactive Nonreactive MR lumbar spine without & with IV [id number] 14:53:29MR LUMBAR SPINE WITH & WITHOUT IV [...] x 1.7x 1.7 cm. Dorsal paraspinal musculature G1hyqjthhmaiprng. Postcontrast imaging demonstrates mild peripheralenhancement of the dorsal paraspinal fluid collection. Left adrenalgland 2.9 cm nodule.[facility] HospitalMR lumbar spine without & with IV [id number] 14:53:29MR LUMBAR SPINE WITH & WITHOUT IV CONTRAST INDICATION: Lumbar radiculopathy, prior surgery, newsymptoms COMPARISON: 03/30/2023 TECHNIQUE: Multiplanar, multisequence MR images [...] and scattered marrow degenerative changes without evidence of acute osseous fracture. Discs: Disc space narrowing most [...] x 1.7x 1.7 cm. Dorsal paraspinal musculature A8hcrgyxnofvqisl. Postcontrast imaging demonstrates mild peripheralenhancement of the dorsal paraspinal fluid collection. Left adrenalgland 2.9 cm nodule.[facility] HospitalMR lumbar spine without & with IV [id number] 14:53:29MR LUMBAR SPINE WITH & WITHOUT IV CONTRAST INDICATION: Lumbar radiculopathy, prior surgery, newsymptoms COMPARISON: 03/30/2023 TECHNIQUE: Multiplanar, multisequence MR images [...] and scattered marrow degenerative changes without evidence of acute osseous fracture. Discs: Disc space narrowing most [...] x 1.7x 1.7 cm. Dorsal paraspinal musculature E2hweiioulvcobsn. Postcontrast imaging demonstrates mild peripheralenhancement of the dorsal paraspinal fluid collection. Left adrenalgland 2.9 cm nodule.[facility] HospitalMR LUMBAR SPINE WITH & WITHOUT IV [id number] 14:53:29[facility] : 1970 [...] 1.7 x 1.7 cm. Dorsal paraspinal musculature B1ozdniikqzntjva. Postcontrast imaging demonstrates mild peripheralenhancement of the [...] Signed By: Ryan Buckley06/13/2023 14:55 CDTWorkstation Name: [id number] KINASE (CK)2023-06-13 11:54:02* Test Item Value Reference Range Interpretation Comme nts CREATINE KINASE TOTAL (BEAKE R) (test code = 380) 43 U/L 29-200 Electronics Tech ID - ADMINCOMPREHENSIVE METABOLIC [id number] 06:48:22* Test Item Value Reference Range Interpretation [...] GFR is not applicable for dialysis patients Electronics Tech ID - ADMINPROTHROMBIN TIME/ZPS1198-68-31 06:40:01* Test Item Value Reference Range Interpretation [...] code = 2801) 1.70 % 0.00-1.00 H [id number] 05:26:09* Test Item Value Reference Range Interpretation Comme nts MAGNESIUM (BEAKER) (test cod e = 627) 2.0 mg/dL 1.6-2.6 Electronics Tech ID - [id number] 05:26:09* Test Item Value Reference Range Interpretation Comme nts PHOSPHORUS (BEAKER) (test co de = 604) 3.5 mg/dL 2.3-4.7 Electronics Tech ID - ADMINBASIC METABOLIC [id number] 05:26:08* Test Item Value Reference Range Interpretation [...] GFR is not applicable for dialysis patients Electronics Tech ID - ADMINCBC W/PLT COUNT & AUTO [id number] 05:11:15* Test Item Value Reference Range Interpretation [...] 0.70 % 0.00-1.00 XR spine lumbar 1 [id number] 10:32:20XR SPINE LUMBAR 1 VIEW CLINICAL INDICATION: L3-4 L[facility]INECTOMY [facility] [id number] 10:32:20XR SPINE LUMBAR 1 VIEW CLINICAL INDICATION: L3-4 LAMINECTOMY [facility] 2023-06-01 10:32:20XR SPINE LUMBAR 1 VIEW CLINICAL INDICATION: L3-4 LAMINECTOMY [facility] 1 [id number] 10:32:20[facility]ER [facility]LE : 1970 Sex: FXR SPINE LUMBAR 1 VIEWCLINICAL INDICATION: L3-4 LAMINECTOMYCOMPARISON: NoneIMPRESSION:A single lateral view of the lumbar spine is obtained intraoperatively.The posterior approach surgical instrument is seen at the L3-L4 level,inferior to the L3 spinous process. Results were communicated to , who concurred with the above findings. Electronically Signed By: Maxim Ramos08/01/2022 10:34 CDTWo rkstation Name: [id number] SPINE LUMBAR 1 [id number] 10:29:18 [facility] : 1970 [...] Signed By: Maxim Ramos08/01/2022 10:31 CDTWorkstation Name: [id number] Screen, [id number] 05:32:52* Test Item Value Reference Range Interpretation Comme nts Preg Test, Ur (test code = 2111-07) Negative Negative Lab Interpretation (test cod e = 77413-5) Normal [facility] HospitalPregnancy Screen, [id number] 05:32:52* Test Item Value Reference Range Interpretation Comme nts Preg Test, Ur (test code = 2111-07) Negative Negative Lab Interpretation (test cod e = 59997-5) Normal [facility] HospitalPregnancy Screen, [id number] 05:32:52* Test Item Value Reference Range Interpretation Comme nts Preg Test, Ur (test code = 2111-07) Negative Negative Lab Interpretation (test cod e = 26831-1) Normal [facility]Pregnancy [facility], [id number] 05:32:52* Test Item Value Reference Range Interpretation Comme nts Preg Test, Ur (test code = 2111-) Negative Negative Lab Interpretation (test cod e = 88297-3) Normal [facility] HospitalPregnancy Screen, [id number] 05:32:52* Test Item Value Reference Range Interpretation Comme nts Preg Test, Ur (test code = 2111-) Negative Negative Lab Interpretation (test cod e = 01841-0) Normal [facility] HospitalPregnancy Screen, [id number] 05:32:52* Test Item Value Reference Range Interpretation Comme nts Preg Test, Ur (test code = 2111-) Negative Negative Lab Interpretation (test cod e = 79243-7) Normal [facility]Pregnancy Screen, [id number] 05:32:52* Test Item Value Reference Range Interpretation Comme nts Preg Test, Ur (test code = 2111-) Negative Negative Lab Interpretation (test cod e = 60097-7) Normal [facility] HospitalPregnancy Screen, [id number] 05:32:52* Test Item Value Reference Range Interpretation Comme nts Preg Test, Ur (test code = 2111-) Negative Negative Lab Interpretation (test cod e = 53160-0) Normal [facility] HospitalPregnancy Screen, [id number] 05:32:52* Test Item Value Reference Range Interpretation Comme nts Preg Test, Ur (test code = 2111-) Negative Negative Lab Interpretation (test cod e = 73677-0) Normal [facility] HospitalPregnancy Screen, [id number] 05:32:52* Test Item Value Reference Range Interpretation Comme nts Preg Test, Ur (test code = 2111-) Negative Negative Lab Interpretation (test cod e = 68317-2) Normal [facility]Pregnancy Screen, [id number] 05:32:52* Test Item Value Reference Range Interpretation Comme nts Preg Test, Ur (test code = 2111-) Negative Negative Lab Interpretation (test cod e = 17805-4) Normal [facility] HospitalPregnancy Screen, [id number] 05:32:52* Test Item Value Reference Range Interpretation Comme nts Preg Test, Ur (test code = 2-1) Negative Negative Lab Interpretation (test cod e = 10324-1) Normal [facility] HospitalPregnancy Screen, [id number] 05:32:52* Test Item Value Reference Range Interpretation Comme nts Preg Test, Ur (test code = 2-1) Negative Negative Lab Interpretation (test cod e = 57399-9) Normal [facility] HospitalPregnancy Screen, [id number] 05:32:52* Test Item Value Reference Range Interpretation Comme nts Preg Test, Ur (test code = 2111-1) Negative Negative Lab Interpretation (test cod e = 44187-7) [facility], [id number] 05:32:52* Test Item Value Reference Range Interpretation Comme nts Preg Test, Ur (test code = 2111-1) Negative Negative Lab Interpretation (test cod e = 56247-2) Normal [facility] HospitalPregnancy Screen, [id number] 05:32:52* Test Item Value Reference Range Interpretation Comme nts Preg Test, Ur (test code = 2111-1) Negative Negative Lab Interpretation (test cod e = 82848-8) Normal [facility]Pregnancy Screen, [id number] 05:32:52* Test Item Value Reference Range Interpretation Comme nts Preg Test, Ur (test code = 2111-1) Negative Negative Lab Interpretation (test cod e = 30928-9) Normal [facility]Pregnancy Screen, [id number] 05:32:52* Test Item Value Reference Range Interpretation Comme nts Preg Test, Ur (test code = 2111-1) Negative Negative Lab Interpretation (test cod e = 78061-9) Normal [facility]Pregnancy Screen, [id number] 05:32:52* Test Item Value Reference Range Interpretation Comme nts Preg Test, Ur (test code = 2-1) Negative Negative Lab Interpretation (test cod e = 39640-1) [facility] [place], [id number] 05:32:52* Test Item Value Reference Range Interpretation Comme nts Preg Test, Ur (test code = 2111-1) Negative Negative Lab Interpretation (test cod e = 62551-4) Normal [facility] HospitalPregnancy Screen, hixti2717-17-25 05:32:52* Test Item Value Reference Range Interpretation Comme nts Preg Test, Ur (test code = 2111-1) Negative Negative Lab Interpretation (test cod e = 52649-6) Normal [facility] HospitalPregnancy Screen, [id number] 05:32:52* Test Item Value Reference Range Interpretation Comme nts Preg Test, Ur (test code = 2111-1) Negative Negative Lab Interpretation (test cod e = 61753-3) Normal [facility]Pregnancy Screen, [id number] 05:32:52* Test Item Value Reference Range Interpretation Comme nts Preg Test, Ur (test code = 2111-) Negative Negative Lab Interpretation (test cod e = 18376-6) Normal [facility]Pregnancy Screen, [id number] 05:32:52* Test Item Value Reference Range Interpretation Comme nts Preg Test, Ur (test code = 2111-) Negative Negative Lab Interpretation (test cod e = 51382-2) Normal [facility]Pregnancy Screen, [id number] 05:32:52* Test Item Value Reference Range Interpretation Comme nts Preg Test, Ur (test code = 2111-) Negative Negative Lab Interpretation (test cod e = 03311-2) Normal [facility] HospitalPregnancy Screen, [id number] 05:32:52* Test Item Value Reference Range Interpretation Comme nts Preg Test, Ur (test code = 2111-1) Negative Negative Lab Interpretation (test cod e = 45522-4) Normal [facility]Pregnancy Screen, [id number] 05:32:52* Test Item Value Reference Range Interpretation Comme nts Preg Test, Ur (test code = 2111-1) Negative Negative Lab Interpretation (test cod e = 98167-0) Normal [facility] HospitalPregnancy Screen, [id number] 05:32:52* Test Item Value Reference Range Interpretation Comme nts Preg Test, Ur (test code = 2-1) Negative Negative Lab Interpretation (test cod e = 47951-7) Normal [facility]Pregnancy Screen, [id number] 05:32:52* Test Item Value Reference Range Interpretation Comme nts Preg Test, Ur (test code = 2-1) Negative Negative Lab Interpretation (test cod e = 38256-8) Normal [facility] HospitalPregnancy Screen, [id number] 05:32:52* Test Item Value Reference Range Interpretation Comme nts Preg Test, Ur (test code = 2-1) Negative Negative Lab Interpretation (test cod e = 51787-7) Normal [facility] HospitalPregnancy Screen, [id number] 05:32:52* Test Item Value Reference Range Interpretation Comme nts Preg Test, Ur (test code = 2111-) Negative Negative Lab Interpretation (test cod e = 81729-7) Normal [facility] HospitalPregnancy Screen, [id number] 05:32:52* Test Item Value Reference Range Interpretation Comme nts Preg Test, Ur (test code = 2111-) Negative Negative Lab Interpretation (test cod e = 79996-4) Normal [facility]Pregnancy Screen, [id number] 05:32:52* Test Item Value Reference Range Interpretation Comme nts Preg Test, Ur (test code = 2111-1) Negative Negative Lab Interpretation (test cod e = 01168-1) Normal [facility] HospitalPregnancy Screen, [id number] 05:32:52* Test Item Value Reference Range Interpretation Comme nts Preg Test, Ur (test code = 2111-1) Negative Negative Lab Interpretation (test cod e = 17759-5) Normal [facility]Pregnancy Screen, [id number] 05:32:52* Test Item Value Reference Range Interpretation Comme nts Preg Test, Ur (test code = 2111-1) Negative Negative Lab Interpretation (test cod e = 32694-6) Normal [facility] HospitalPregnancy Screen, [id number] 05:32:52* Test Item Value Reference Range Interpretation Comme nts Preg Test, Ur (test code = 2-1) Negative Negative Lab Interpretation (test cod e = 32907-8) Normal [facility] HospitalPregnancy Screen, [id number] 05:32:52* Test Item Value Reference Range Interpretation Comme nts Preg Test, Ur (test code = 2-1) Negative Negative Lab Interpretation (test cod e = 89668-1) Normal [facility] HospitalPregnancy Screen, [id number] 05:32:52* Test Item Value Reference Range Interpretation Comme nts Preg Test, Ur (test code = 2-1) Negative Negative Lab Interpretation (test cod e = 12819-2) Normal [facility] HospitalPregnancy Screen, [id number] 05:32:52* Test Item Value Reference Range Interpretation Comme nts Preg Test, Ur (test code = 2111-) Negative Negative Lab Interpretation (test cod e = 26411-6) Normal [facility] HospitalPregnancy Screen, [id number] 05:32:52* Test Item Value Reference Range Interpretation Comme nts Preg Test, Ur (test code = 2111-) Negative Negative Lab Interpretation (test cod e = 37493-8) Normal [facility] HospitalPregnancy Screen, [id number] 05:32:52* Test Item Value Reference Range Interpretation Comme nts Preg Test, Ur (test code = 2111-) Negative Negative Lab Interpretation (test cod e = 18728-9) Normal [facility]Pregnancy Screen, [id number] 05:32:52* Test Item Value Reference Range Interpretation Comme nts Preg Test, Ur (test code = 2111-) Negative Negative Lab Interpretation (test cod e = 62561-1) Normal [facility]Pregnancy Screen, [id number] 05:32:52* Test Item Value Reference Range Interpretation Comme nts Preg Test, Ur (test code = 2111-) Negative Negative Lab Interpretation (test cod e = 71625-3) Normal [facility] HospitalPregnancy Screen, [id number] 05:32:52* Test Item Value Reference Range Interpretation Comme nts Preg Test, Ur (test code = 2111-) Negative Negative Lab Interpretation (test cod e = 53062-4) Normal [facility] HospitalPregnancy Screen, [id number] 05:32:52* Test Item Value Reference Range Interpretation Comme nts Preg Test, Ur (test code = 2-1) Negative Negative Lab Interpretation (test cod e = 68769-7) Normal [facility] HospitalPregnancy Screen, [id number] 05:32:52* Test Item Value Reference Range Interpretation Comme nts Preg Test, Ur (test code = 2111-1) Negative Negative Lab Interpretation (test cod e = 79613-9) Normal [facility] HospitalPregnancy Screen, [id number] 05:32:52* Test Item Value Reference Range Interpretation Comme nts Preg Test, Ur (test code = 2111-) Negative Negative Lab Interpretation (test cod e = 84464-5) Normal [facility] HospitalPregnancy Screen, [id number] 05:32:52* Test Item Value Reference Range Interpretation Comme nts Preg Test, Ur (test code = 2111-) Negative Negative Lab Interpretation (test cod e = 04903-9) Normal [facility] HospitalPregnancy Screen, [id number] 05:32:52* Test Item Value Reference Range Interpretation Comme nts Preg Test, Ur (test code = 2111-) Negative Negative Lab Interpretation (test cod e = 45984-8) Normal [facility] HospitalPregnancy Screen, [id number] 05:32:52* Test Item Value Reference Range Interpretation Comme nts Preg Test, Ur (test code = 2111-) Negative Negative Lab Interpretation (test cod e = 53347-7) Normal [facility] HospitalPREGNANCY SCREEN, [id number] 05:32:52* Test Item Value Reference Range Interpretation Comme nts TEST URINE (BEAKER ) (test code = 583) Negative Negative BASIC METABOLIC [id number] 23:30:54* Test Item Value Reference Range Interpretation [...] GFR is not applicable for dialysis patients Electronics Tech ID - ADMINPT/[id number] 23:15:33* Test Item Value Reference Range Interpretation [...] H CT neck soft tissue without IV [id number] 13:45:22EXAM: CT NECK SOFT TISSUE WITHOUT IV [...] Postoperative changes from anterior cervical discectomy fusionat C3-D8Vonoucol Lung Apices: NormalCH[facility] CenterCT neck soft tissue without IV scczlidq2353-92-85 13:45:22EXAM: CT NECK SOFT TISSUE WITHOUT IV [...] reconstructiontechnique. COMPARISON: 08/02/2022 CTA head and neck FI NDINGS: Soft tissues:Subcutaneous emphysema seen in the left [...] Postoperative changes from anterior cervical discectomy fusionat C3-H7Dcbmyzlw Lung Apices: NormalCH[facility] CenterCT neck soft tissue without IV bnwnxkvf7523-08-22 13:45:22EXAM: CT NECK SOFT TISSUE WITHOUT IV [...] reconstructiontechnique. COMPARISON: 08/02/2022 CTA head and neck F INDINGS: Soft tissues:Subcutaneous emphysema seen in the left neck soft tissues involving thesubmandibular and carotid spaces. Fat stranding is noted left neckcompartments, primarily submandibular space and left carotid space.Retropharyngeal fluid measures up to 0.8 x 2.3 cm (AP by transverse withsm all foci of air noted.A 1.8 x 2.9 [...] Postoperative changes from anterior cervical discectomy fusionat C3-Y3Rrlrdmmo Lung Apices: NormalCH[facility] Medical CenterCT NECK SOFT TISSUE WITHOUT IV [id number] 13:45:22 [facility] : 1970 Sex: [...] the left inferior maxillarysinus.Tympanomastoid Cavities: NormalVascular Structures: Komal lOsseous Structures: Moderate rightward convexity of the bony nasalseptum. Postoperative changes from anterior cervical discectomy fusionat C3-I7Awwhnhas Lung Apices: NormalIMPRESSION:Exam limited bylack of intravenous contrast.1. 1.8 x 2.9 x 1.3 cm ill-defined fluid collection in the leftanterolateral neck soft tissues, suggesting evolving postoperativehemorrhage. Superimposed infection is not excluded.2. Retropharyngeal fluid and air measuring up to 0.8 cm in thickness,favored to be present postoperative right frontal edema. Superimposedinfection is not excluded.3. Postoperative changes from ACDF at C3- H3Kqoesmxjdzrzwf Signed By: Maxim Ramos07/31/2022 13:47 CDTWorkstation Name: [id number] METABOLIC [id number] 08:13:13* Test Item Value Reference Range Interpretation [...] GFR is not applicable for dialysis patients Electronics Tech ID - BVCBC W/PLT COUNT & AUTO [id number] 07:46:31* Test Item Value Reference Range Interpretation [...] K/ L 0.01-0.08 IMMATURE GRANULOCYTES-RELATI VE PERCENT (LINNEAAKER) (test code = 2801) 0.60 % 0.00-1.00 XR spine cervical 2 or 3 [id number] 20:24:23TECHNIQUE: Frontal and lateral views of the cervical spine. INDICATION: Postop Standing Films. COMPARISON: None.[facility]XR spine cervical 2 or 3 [id number] 20:24:23TECHNIQUE: Frontal and lateral views of the cervical spine. INDICATION: Postop Standing Films. COMPARISON: None.[facility] HospitalXR spine cervical 2 or 3 [id number] 20:24:23TECHNIQUE: Frontal and lateral views of the cervical spine. INDICATION: Postop Standing Films. COMPARISON: None.[facility] HospitalXR SPINE CERVICAL 2 OR 3 [id number] 20:24:23 [facility] 1970 [...] the left lung apex.Electronically Signed By: Zachariah Garcia11/03/2023 20:26 CDTWorkstation Name: [id number] fluoro non-specific up to 1 hour 2023-05-28 11:45:16This is a non-reportable study with no Radiologist dictation. Please refer to your PACS to review images, or Doc Flowsheets for documentation on studies without images.[facility] HospitalFL fluoro non-specific up to 1 [id number] 11:45:16This is a non-reportable study with no Radiologist dictation. Please refer to your PACS to review images, or Doc Flowsheets for documentation on studies without images.[facility] HospitalFL fluoro non-specific up to 1 [id number] 11:45:16This is a non-reportable study with no Radiologist dictation. Please refer to your PACS to review images, or Doc Flowsheets for documentation on studies without images.[facility] HospitalFL FLUORO NON-SPECIFIC UP TO 1 [id number] 11:45:16 [facility] ESTELLE : 1970 Sex: FThis is a non- reportable study with no Radiologist dictation. Please refer to your PACS to review images, or Doc Flowsheets for documentation on studies without images.FL FLUORO NON-SPECIFIC UP TO 1 [id number] 10:13:02 [facility] ESTELLE : 1970 Sex: FTECHNIQUE: 1 lateral fluoroscopic image of the cervical spine forlocalization.Fluoroscopic time: 3second(s).FINDINGS:The surgical pointer is at C3-C4.The findings were discussed with Dr. Garcia in theOR who concurred withthe findings.IMPRESSION:Intraoperative localization plain film as described abo ve.Electronically Signed By: Derik Reyez05/28/2023 10:15 CDTWorkstation Name: [id number], QUANTITATIVE, [id number] 08:21:03* Test Item Value Reference Range Interpretation Comme nts GONADOTROPIN, CHORIONIC (HCG ) QUANT (BEAKER) (test code = 649) < mIU/mL 0-10 Non- Females: <10 mIU/mL Females: Gestation Age Reference Range(mIU/mL) 0.2-1 Week 5-50 1-2 Weeks 50-500 2-3 Weeks 100-5,000 3-4 Weeks 500-10,000 4-5 Weeks 1,000-50,000 5-6 Weeks 10,000-100,000 6-8 Weeks 15,000- 200,000 2-3 Months 10,000-100,000 Electronics Tech ID - ADMINCULTURE, [id number] 09:28:30SPECIMEN NUMBER: [id number] CULTURE, URINE SPECIMEN NUMBER: [id number] SPECIMEN COMMENT: URINE SOURCE: URINE REPORT STATUS: FINAL FINAL REPORT: 05/15/2023 >100,000 CFU/ML UROGENITAL REBEL PRESENT NOCOMMON PATHOGENS UNLESS OTHERWISE INDICATED, ALL TESTING PERFORMED AT [facility] [address] [place] [address] DIRECTOR OF RETAIL MERCHANDISING: David DUMONTIA NUMBER [id number] [place]. [id number], [id number] 12:02:50SPECIMEN NUMBER: [id number] CULTURE, URINE SPECIMEN NUMBER: [id number] SOURCE: URINE REPORT STATUS: FINAL FINAL REPORT: 05/13/2023 NO SPECIMEN RECEIVED FOR TESTING. CHARGES DELETED.BASIC METABOLIC [id number] 04:48:43* Test Item Value Reference Range Interpretation Comme nts GLUCOSE (test code = 2217) 117 MG/DL 70-99 H BUN (test code = 2208) 20 MG/DL 6-20 CREATININE (test code = 2214) 0.83 MG/DL 0.60-1.30 eGFR (2020 CKD-EPI) (test co de = 56983) 85 ML/MIN/1.73 >60 SODIUM (test code = [...] 12.7 SECONDS 12.5-14.7 INR (test code = 89904) 0.9 SEE BELOW CURRENT RECOMMENDATIONS ARE FOR AN INR OF 2.0-3.0 FOR ALL PATIENTS ON VITAMIN K ANTAGONISTS, EXCEPT THOSE WITH PROSTHETIC HEART VALVES, FOR WHOM INR OF 2.5-3.5 IS RECOMMENDED. UNLESS OTHERWISE INDICATED, ALL TESTING PERFORMED AT [facility] [address] [place] [address] DIRECTOR OF RETAIL MERCHANDISING: JANNY STEINER M.D. CLIA NUMBER [id number] [facility] [place]. [id number] CBC W/AUTO DIFF WITH [id number] 01:54:17* Test Item Value Reference Range Interpretation [...] H ABS NUCLEATED RBCS (test code = 38916) 0.00 K/UL 0.00-0.11 ECG 12 [id number] 14:02:48Ventricular Rate 102 BPMAtrial Rate 102 BPMP-R Interval 146 msQRS Duration 90 msQ-T Interval 372 msQTC Calculation(Bazett) 484 msP Sanderson 11 degreesR Sanderson -53 degreesT Sanderson 29 degrees Sinus tachycardiaPossible Left atrial enlargementLeft axis deviationPoor R wave progression Cannot rule out Anterior infarct , age undetermined vs lead misplacementNonspecific T wave abnormalityProlonged QTAbnormal ECGNo previous ECGs availableConfirmed by David GARCIA BASANT ([id number]) on 04/06/2023 2:02:46 [facility] CenterE[facility] CONTRAST & [id number] 13:11:39Transthoracic Echocardiography Report (TTE) Demographics Patient Name YUE ROMERO Date of Study 03/31/2023 ESTELLE Gender Female Visit Number [id number] Race 122 Room Number 2227 Number Date of 1970 Referring Physician Mariah Aldridge MD Age 53year(s) Svp Monetization Wilmer Francois Ed Educational Aide Josefina Corbett [facility] Interpreting Physician Melody MDProcedure Type of Study [...] Valve Peak Velocity:0.74 m/s Peak Gradient: 2.22 mmHgCHI Westlake Outpatient Medical CenterECHO W CONTRAST & [id number] 13:11:39Transthoracic Echocardiography Report (TTE) Demographics Patient Name YUE ROMERO Date of Study 03/31/2023 ESTELLE Gender Female Visit Number [id number] Race 122 Room Number 2227 Number Date of 1970 Referring Physician Mariah Aldridge MD Age 53year(s) Svp Monetization Wilmer Francois Ed Educational Aide Josefina Corbett, [facility] Interpreting Physician Melody MDProcedure Type of Study [...] msec MV Evette. Peak: Tissue Doppler E' SeptalVelocity: 0.06 m/s E/E': 19.74 E' Lateral Velocity: [...] Velocity: 0.74 m/s Peak Gradient: 2.22 mmHgCHI Westlake Outpatient Medical CenterXR chest 1 view portable / [id number] 15:39:07TECHNIQUE: Frontal view of the chest. INDICATION: CHf. COMPARISON: None. FINDINGS: LINES/TUBES: None. HEART AND MEDIASTINUM: Cardiomediastinal contour is within normallimits. LUNGS: The lungs are well inflated and clear. No consolidation orpulmonary edema. PLEURA: No pneumothorax. No significant pleural effusion. SOFT TISSUES AND BONES: Cervical spinal fixation hardware is noted.[facility] HospitalXR chest 1 view portable / [id number] 15:39:07TECHNIQUE: Frontal view of the chest. INDICATION: CHf. COMPARISON: None. FINDINGS: LINES/TUBES: None. HEART AND MEDIASTINUM: Cardiomediastinal contour is within normallimits. LUNGS: The lungs are well inflated and clear. No consolidation orpulmonary edema. PLEURA: No pneumothorax. No significant pleural effusion. SOFT TISSUES AND BONES: Cervical spinal fixation hardware is noted.[facility] HospitalXR CHEST 1 VIEW PORTABLE / [id number] 15:39:07 [facility] : 1970 Sex: FTECHNIQUE: Frontal view of the chest.INDICATION: CHf.COMPARISON: None.FINDINGS:LINES/TUBES: None.HE ART AND MEDIASTINUM: Cardiomediastinal contour is within normallimits. LUNGS: The lungs are well inflated and clear. No consolidation orpulmonary edema.PLEURA: No pneumothorax. No significant pleuraleffusion.SOFT TISSUES AND BONES: Cervical spinal fixation hardware is noted.IMPRESSION:No acute card iopulmonary process.Electronically Signed By: Jose Carlos Lebron04/01/2023 15:41 CDTWorkstation Name: [id number] NATRIURETIC FACTOR (BNP)2023-04-01 14:15:07* Test Item Value Reference Range Interpretation Comme nts B-TYPE NATRIURETIC PEPTIDE ( BEAKER) (test code = 700) 192 pg/mL 0-100 H Electronics Tech ID - ADMINMR spine cervical without IV [id number] 11:30:35MRI cervical spine without contrast CLINICAL HISTORY: [...] and paraspinal soft tissues are within normal limits.[facility] HospitalMR CERVICAL SPINE WITHOUT IV [id number] 11:30:35 [facility]UE HEATHERGRACIELA MCCABE : 1970 Sex: FMRI cervical spine [...] Signed By: Maxim Sultana03/31/2023 11:32 CDTWorkstation Name: [id number] METABOLIC [id number] 04:43:14* Test Item Value Reference Range Interpretation [...] GFR is not applicable for dialysis patients Electronics Tech GEOVANNA [facility] (HEMOGRAM ONLY)2023-03-31 04:20:07* Test Item [...] 0 /100 WBC 0-0 Arterial doppler legs [id number] 17:44:07PV LAB - Lower Extremity Arterial Duplex Demographics Patient Name YUE ROMERO Date of Study ESTELLE Age 53 Visit Number [id number] Gender Female Accession Number [id number] Date of 1970 Referring Mariah Aldridge, Room Number 2227 Physician Svp Monetization Yovana Akins Interpreting John Solorio, Physician FellowProcedureType [...] + + + + + + !Prox STEWARDESSES TEACHER ! !32 ! !Biphasic ! !60.9 ! !Triphasic ! +--- + + + + + + + + + !Mid STEWARDESSES TEACHER ! !25.9 ! !Biphasic ! !59.7 ! !Triphasic ! + + + + + + + + + + !Dist STEWARDESSES TEACHER ! !33.2 ! !Biphasic ! !37.4 [...] + + + + + + +[facility] Medical CenterArterial doppler legs [id number] 17:44:07PV LAB - Lower Extremity Arterial Duplex Demographics Patient Name YUE ROMERO Date of Study 03/30/2023 ESTELLE Age 53 Visit Number [id number] Gender Female Accession Number [id number] Date of 1970 Referring Mariah Jasen, Room Number 2227 Physician Svp Monetization Yovana Akins Interpreting John Solorio, Physician FellowProcedureType [...] + + + + + + !Prox STEWARDESSES TEACHER ! !32 ! !Biphasic ! !60.9 ! !Triphasic ! + + + + + + + + + + !Mid STEWARDESSES TEACHER ! !25.9 ! !Biphasic ! !59.7 ! !Triphasic ! + + + + + + + + + + !Dist STEWARDESSES TEACHER ! !33.2 ! !Biphasic ! !37.4 [...] + + + + + + +[facility] Medical CenterABI's Only(Ankle/Brachial Index)2023-03-30 17:13:47PV LAB - Lower Extremity Arterial Procedure Demographics Patient Name YUE ROMERO Date of Study 03/30/2023 ESTELLE Age 53 Visit Number [id number] Gender Female Accession Number [id number] Date of 1970 Referring Mariah Aldridge, Room Number 2227 Physician Svp Monetization Yovana Akins Interpreting John Solorio, Physician FellowProcedureType [...] in cm/s ; Diameters are measured in [facility] UCLAABI's Only(Ankle/Brachial Index)2023-03-30 17:13:47PV LAB - Lower Extremity Arterial Procedure Demographics Patient Name YUE ROMERO Date of Study 03/30/2023 ESTELLE Age 53 Visit Number [id number] Gender Female Accession Number [id number] Date of 1970 Referring Mariah Aldridge, Room Number 2227 Physician Svp Monetization Yovana Akins Interpreting John Solorio, Physician FellowProcedureType of Study: Extremities Arteries: Lower Extremity Arterial Procedure, ARTERIAL (ALEISHA'S W/DOPPLER) ONLY.Indications for Stud y:PVD.Patient Status:Routine.Study Location:Vascular Lab.Technical Quality:Adequate visualization.Risk FactorsHistory of [...] in cm/s ; Diameters are measured in [facility] thoracic spine without IV [id number] 12:50:50MR THORACIC SPINE WITHOUT IV CONTRAST INDICATION: [...] abnormality. T10-11 moderate right neural foraminal stenosis gweN81-23 moderate bilateral foraminal stenosis due to facet hypertrophyand ligamentum flavum redundancy. Thoracic vertebrae maintain normal height. Mild multilevel degenerativedisc changes. No evidence of acute osseous fracture or traumaticmalalignment. No paraspinal mass. Conus medullaris terminates at L1. Redundant cauda equina partiallyimaged and further reported on MRI lumbar spine.[facility] HospitalMR THORACIC SPINE WITHOUT IV [id number] 12:50:50 [facility] : 1970 [...] abnormality. T10-11 moderate right neural foraminal stenosis abyL18-82 moderate bilateral foraminal stenosis due to facet [...] Signed By: Ryan Buckley03/30/2023 12:52 CDTWorkstation Name: [id number] spine lumbar without IV fbxrlfwj1850-12-65 12:33:57MR LUMBAR SPINE WITHOUT IV CONTRAST INDICATION: Unlisted Reason for ExamConcern for cord compression COMPARISON: None TECHNIQUE: Multiplanar, multisequence MR images of the lumbar spinewithout contrast. FINDINGS: For the purposes of this dictation, the 5 lowermost bkbhgg-cvdgigdisfekk-latb vertebral bodies are labeled L1-L5.Alignment of the [...] with mild to moderatebilateral neural foraminal stenosisCHI Westlake Outpatient Medical CenterMR LUMBAR SPINE WITHOUT IV [id number] 12:33:57 [facility]Name[facility] : 1970 Sex: FMR LUMBAR SPINE WITHOUT IV CONTRASTINDICATION: Unlisted Reason for ExamConcern for cord compressionCOMPARISON: NoneTECHNIQUE: Multiplanar, multisequence MR images of the lumbar spinewithout contrast. FINDINGS: For the purposes of this dictation, the 5 lowermost tpjaqu-xttqukvgjbgof-lvso vertebral bodies are labeled L1- L5.Alignment of the lumbar spine is within normal limits. Vertebral body height is maintained. Bone marrow edema is seen at the inferior L3 and superior L4 vertebralbodies and bilateral L4 pedicles, favored to be degenerative in nature.Suggestion of a synovial cyst at the utdbsX95-S68 level (series 301image eight).No spinal cord signal [...] flavum buckling versus synovial cyst at the lhdmtZ12-Z14 level (series 301image eight). MRI thoracic spine can beconsidered for further evaluation.7. Mild clumping of the cauda equina nerve roots, which is nonspecificbut may represent arachnoiditis. Postcontrast imaging can be consideredfor further evaluation.Electronically Signed By: Maxim Sultana03/30/2023 12:36 CDTWorkstation Name: [id number] 11:45:01* Test Item Value Reference Range Interpretation Comme nts HEMOGLOBIN A1C ELECTROPHORESIS ([facility]) (test code = 3811) 5.7 % See_Comment [...] 5.7- 6.4% indicates increased risk for diabetes (prediabetes)."Electronics Tech ID - ADMEEG AWAKE AND [id number] 09:57:53Steph Martinez MD 03/30/2023 9:[address] [facility] EEG Type: Inpatient, outpatient, EMUDATE(s) OF EE03/30/23DATE OF REPORT: 03/30/23MRN: [id number] of : 1970EE-1454Start time: 08:36Stop time: 09:23ICD-10: R56.9 CPT Code: 13291 (awake and asleep)HISTORY: 53 y/o female with [...] EEG recordings. Steph Elias MD, MPHNeurophysiology/Epilepsy AttendingCH[facility] Center EEG AWAKE AND [id number] 09:57:53Steph Martinez MD 03/30/2023 9:[address] [facility] EEG Type: Inpatient, outpatient, EMUDATE(s) OF EE03/30/23DATE OF REPORT: 03/30/23MRN: [id number] of : 1970EE-7244Start time: 08:36Stop time: 09:23ICD-10: R56.9 CPT Code: 58640 (awake and asleep)HISTORY: 53 y/o female with [...] EEG recordings. Steph Elias MD, MPHNeurophysiology/Epilepsy AttendingCH[facility] Center EEG AWAKE AND [id number] 09:57:53Steph Martinez MD 03/30/2023 9:59 AMELECTROENCEPHALOGRAM FOR [facility] EEG Type: Inpatient, outpatient, EMUDATE(s) OF EE03/30/23DATE OF REPORT: 03/30/23MRN: [id number] of : 1970EE-1454Start time: 08:36Stop time: 09:23ICD-10: R56.9 CPT Code: 93817 (awake and asleep)HISTORY: 53 y/o female with [...] EEG recordings. Steph Elias MD, MPHNeurophysiology/Epilepsy AttendingCH[facility] Center EEG AWAKE AND [id number] 09:57:53Steph Martinez MD 03/30/2023 9:[address] [facility] EEG Type: Inpatient, outpatient, EMUDATE(s) OF EE03/30/23DATE OF REPORT: 03/30/23MRN: [id number] of : 1970EE-1454Start time: 08:36Stop time: 09:ICD-10: R56.9 CPT Code: 06581 (awake and asleep)HISTORY: 53 y/o female with [...] EEG recordings. Steph Elias MD, MPHNeurophysiology/Epilepsy AttendingCHI [facility] Center VALPROIC ACID LEVEL, [id number] 09:42:31* Test Item Value Reference Range Interpretation Comme nts VALPROIC ACID TOTAL (BEAKER) (test code = 924) 76 ug/mL 50-100 Therapeutic range for some clinical conditions may be >100 ug/mLUrinalysis w/Microscopic + Reflex to [id number] 08:43:51* Test Item Value Reference Range Interpretation Comme nts Color, UA (test code = 5778-6) Yellow Clarity, UA (test code = 5767-9) Clear Specific [place], UA (test code = 5811-5) 1.033 1.001-1.035 pH, UA (test code = 5803-2) 6.0 5.0-8.0 Protein, UA (test code = 38712-3) 30 mg/dL Negative A Glucose, UA (test code = 365) Negative Negative Ketones, UA (test code = 2514-8) Negative Negative Bilirubin, UA (test code = 45437-1) Negative Negative Blood, UA (test code = 37405-6) Small Negative A Nitrite, UA (test code = 5802-4) Negative Negative Leukocytes, UA (test code = 5799-2) Negative Negative Urobilinogen, UA (test code = 00543-0) 0.2 0.2-1.0 RBC, UA (test code = 19565-9) 51 See_Comment [Automated message] The system which [...] Occasional Squam Epithel, UA (test code = 48894-5) See_Comment [Automated message] The system which generated this result transmitted reference range: /HPF. The reference range was not used to interpret this result as normal/abnormal. Specimen Source (test code = 2795) LYNDSAY (test code = LYNDSAY) Electronics Tech ID - [auto]Electronics Tech ID - tech Lab Interpretation (test code = 03214-1) Abnormal [facility] HospitalUrinalysis w/Microscopic + Reflex to Culture 2023-03-30 08:43:51* Test Item Value Reference Range Interpretation Comme nts Color, UA (test code = 5778-6) Yellow Clarity, UA (test code = 5767-9) Clear Specific [place], UA (test code = 5811-5) 1.033 1.001-1.035 pH, UA (test code = 5803-2) 6.0 5.0-8.0 Protein, UA (test code = 61721-2) 30 mg/dL Negative A Glucose, UA (test code = 365) Negative Negative Ketones, UA (test code = 2514-8) Negative Negative Bilirubin, UA (test code = 75443-0) Negative Negative Blood, UA (test code = 95343-4) Small Negative A Nitrite, UA (test code = 5802-4) Negative Negative Leukocytes, UA (test code = 5799-2) Negative Negative Urobilinogen, UA (test code = 44718-7) 0.2 0.2-1.0 RBC, UA (test code = 75042-4) 51 See_Comment [Automated message] The system which [...] Occasional Squam Epithel, UA (test code = 15858-4) See_Comment [Automated message] The system which generated this result transmitted reference range: /HPF. The reference range was not used to interpret this result as normal/abnormal. Specimen Source (test code = 2795) LYNDSAY (test code = LYNDSAY) Electronics Tech ID - [auto]Electronics Tech ID - tech Lab Interpretation (test code = 67839-5) Abnormal [facility] HospitalUrinalysis w/Microscopic + Reflex to Culture 2023-03-30 08:43:51* Test Item Value Reference Range Interpretation Comme nts Color, UA (test code = 5778-6) Yellow Clarity, UA (test code = 5767-9) Clear Specific [place], UA (test code = 5811-5) 1.033 1.001-1.035 pH, UA (test code = 5803-2) 6.0 5.0-8.0 Protein, UA (test code = 71156-2) 30 mg/dL Negative A Glucose, UA (test code = 365) Negative Negative Ketones, UA (test code = 2514-8) Negative Negative Bilirubin, UA (test code = 38862-5) Negative Negative Blood, UA (test code = 52014-4) Small Negative A Nitrite, UA (test code = 5802-4) Negative Negative Leukocytes, UA (test code = 5799-2) Negative Negative Urobilinogen, UA (test code = 86569-0) 0.2 0.2-1.0 RBC, UA (test code = 67274-4) 51 See_Comment [Automated message] The system which [...] Occasional Squam Epithel, UA (test code = 69134-1) See_Comment [Automated message] The system which generated this result transmitted reference range: /HPF. The reference range was not used to interpret this result as normal/abnormal. Specimen Source (test code = 2795) LYNDSAY (test code = LYNDSAY) Electronics Tech ID - [auto]Electronics Tech ID - tech Lab Interpretation (test code = 35698-5) Abnormal [facility] HospitalUrinalysis w/Microscopic + Reflex to Culture 2023-03-30 08:43:51* Test Item Value Reference Range Interpretation Comme nts Color, UA (test code = 5778-6) Yellow Clarity, UA (test code = 5767-9) Clear Specific [place], UA (test code = 5811-5) 1.033 1.001-1.035 pH, UA (test code = 5803-2) 6.0 5.0-8.0 Protein, UA (test code = 00490-0) 30 mg/dL Negative A Glucose, UA (test code = 365) Negative Negative Ketones, UA (test code = 2514-8) Negative Negative Bilirubin, UA (test code = 70737-0) Negative Negative Blood, UA (test code = 18820-4) Small Negative A Nitrite, UA (test code = 5802-4) Negative Negative Leukocytes, UA (test code = 5799-2) Negative Negative Urobilinogen, UA (test code = 78886-6) 0.2 0.2-1.0 RBC, UA (test code = 69403-2) 51 See_Comment [Automated message] The system which [...] Occasional Squam Epithel, UA (test code = 79705-6) See_Comment [Automated message] The system which generated this result transmitted reference range: /HPF. The reference range was not used to interpret this result as normal/abnormal. Specimen Source (test code = 2795) LYNDSAY (test code = LYNDSAY) Electronics Tech ID - [auto]Electronics Tech ID - tech Lab Interpretation (test code = 72395-6) Abnormal [facility] CenterUrinalysis w/Microscopic + Reflex to Culture 2023-03-30 08:43:51* Test Item Value Reference Range Interpretation Comme nts Color, UA (test code = 5778-6) Yellow Clarity, UA (test code = 5767-9) Clear Specific [place], UA (test code = 5811-5) 1.033 1.001-1.035 pH, UA (test code = 5803-2) 6.0 5.0-8.0 Protein, UA (test code = 24778-1) 30 mg/dL Negative A Glucose, UA (test code = 365) Negative Negative Ketones, UA (test code = 2514-8) Negative Negative Bilirubin, UA (test code = 10542-0) Negative Negative Blood, UA (test code = 73254-1) Small Negative A Nitrite, UA (test code = 5802-4) Negative Negative Leukocytes, UA (test code = 5799-2) Negative Negative Urobilinogen, UA (test code = 58113-5) 0.2 0.2-1.0 RBC, UA (test code = 81638-5) 51 See_Comment [Automated message] The system which [...] Occasional Squam Epithel, UA (test code = 10496-8) See_Comment [Automated message] The system which generated this result transmitted reference range: /HPF. The reference range was not used to interpret this result as normal/abnormal. Specimen Source (test code = 2795) LYNDSAY (test code = LYNDSAY) Electronics Tech ID - [auto]Electronics Tech ID - tech Lab Interpretation (test code = 10389-5) Abnormal [facility] CenterUrinalysis w/Microscopic + Reflex to Culture 2023-03-30 08:43:51* Test Item Value Reference Range Interpretation Comme nts Color, UA (test code = 5778-6) Yellow Clarity, UA (test code = 5767-9) Clear Specific [place], UA (test code = 5811-5) 1.033 1.001-1.035 pH, UA (test code = 5803-2) 6.0 5.0-8.0 Protein, UA (test code = 61203-4) 30 mg/dL Negative A Glucose, UA (test code = 365) Negative Negative Ketones, UA (test code = 2514-8) Negative Negative Bilirubin, UA (test code = 39657-1) Negative Negative Blood, UA (test code = 70575-8) Small Negative A Nitrite, UA (test code = 5802-4) Negative Negative Leukocytes, UA (test code = 5799-2) Negative Negative Urobilinogen, UA (test code = 98100-4) 0.2 0.2-1.0 RBC, UA (test code = 23068-6) 51 See_Comment [Automated message] The system which [...] Occasional Squam Epithel, UA (test code = 49933-9) See_Comment [Automated message] The system which generated this result transmitted reference range: /HPF. The reference range was not used to interpret this result as normal/abnormal. Specimen Source (test code = 2795) LYNDSAY (test code = LYNDSAY) Electronics Tech ID - [auto]Electronics Tech ID - tech Lab Interpretation (test code = 58886-0) Abnormal [facility] HospitalUrinalysis w/Microscopic + Reflex to Culture 2023-03-30 08:43:51* Test Item Value Reference Range Interpretation Comme nts Color, UA (test code = 5778-6) Yellow Clarity, UA (test code = 5767-9) Clear Specific [place], UA (test code = 5811-5) 1.033 1.001-1.035 pH, UA (test code = 5803-2) 6.0 5.0-8.0 Protein, UA (test code = 50435-0) 30 mg/dL Negative A Glucose, UA (test code = 365) Negative Negative Ketones, UA (test code = 2514-8) Negative Negative Bilirubin, UA (test code = 94671-1) Negative Negative Blood, UA (test code = 91415-6) Small Negative A Nitrite, UA (test code = 5802-4) Negative Negative Leukocytes, UA (test code = 5799-2) Negative Negative Urobilinogen, UA (test code = 60146-2) 0.2 0.2-1.0 RBC, UA (test code = 96131-3) 51 See_Comment [Automated message] The system which [...] Occasional Squam Epithel, UA (test code = 38646-6) See_Comment [Automated message] The system which generated this result transmitted reference range: /HPF. The reference range was not used to interpret this result as normal/abnormal. Specimen Source (test code = 2795) LYNDSAY (test code = LYNDSAY) Electronics Tech ID - [auto]Electronics Tech ID - tech Lab Interpretation (test code = 28747-1) [facility] 2023-03-30 08:43:51* Test Item Value Reference Range Interpretation Comme nts Color, UA (test code = 5778-6) Yellow Clarity, UA (test code = 5767-9) Clear Specific [place], UA (test code = 5811-5) 1.033 1.001-1.035 pH, UA (test code = 5803-2) 6.0 5.0-8.0 Protein, UA (test code = 50843-5) 30 mg/dL Negative A Glucose, UA (test code = 365) Negative Negative Ketones, UA (test code = 2514-8) Negative Negative Bilirubin, UA (test code = 04852-8) Negative Negative Blood, UA (test code = 93303-6) Small Negative A Nitrite, UA (test code = 5802-4) Negative Negative Leukocytes, UA (test code = 5799-2) Negative Negative Urobilinogen, UA (test code = 87251-4) 0.2 0.2-1.0 RBC, UA (test code = 07956-6) 51 See_Comment [Automated message] The system which [...] Occasional Squam Epithel, UA (test code = 85896-5) See_Comment [Automated message] The system which generated this result transmitted reference range: /HPF. The reference range was not used to interpret this result as normal/abnormal. Specimen Source (test code = 2795) LYNDSAY (test code = LYNDSAY) Electronics Tech ID - [auto]Electronics Tech ID - tech Lab Interpretation (test code = 77008-2) [facility] 2023-03-30 08:43:51* Test Item Value Reference Range Interpretation Comme nts Color, UA (test code = 5778-6) Yellow Clarity, UA (test code = 5767-9) Clear Specific [place], UA (test code = 5811-5) 1.033 1.001-1.035 pH, UA (test code = 5803-2) 6.0 5.0-8.0 Protein, UA (test code = 23883-5) 30 mg/dL Negative A Glucose, UA (test code = 365) Negative Negative Ketones, UA (test code = 2514-8) Negative Negative Bilirubin, UA (test code = 54274-3) Negative Negative Blood, UA (test code = 90429-6) Small Negative A Nitrite, UA (test code = 5802-4) Negative Negative Leukocytes, UA (test code = 5799-2) Negative Negative Urobilinogen, UA (test code = 55664-5) 0.2 0.2-1.0 RBC, UA (test code = 34976-4) 51 See_Comment [Automated message] The system which [...] Occasional Squam Epithel, UA (test code = 72562-9) See_Comment [Automated message] The system which generated this result transmitted reference range: /HPF. The reference range was not used to interpret this result as normal/abnormal. Specimen Source (test code = 2795) LYNDSAY (test code = LYNDSAY) Electronics Tech ID - [auto]Electronics Tech ID - tech Lab Interpretation (test code = 34658-1) [facility] Reflex [facility] Culture 2023-03-30 08:43:51* Test Item Value Reference Range Interpretation Comme nts Color, UA (test code = 5778-6) Yellow Clarity, UA (test code = 5767-9) Clear Specific [place], UA (test code = 5811-5) 1.033 1.001-1.035 pH, UA (test code = 5803-2) 6.0 5.0-8.0 Protein, UA (test code = 82604-3) 30 mg/dL Negative A Glucose, UA (test code = 365) Negative Negative Ketones, UA (test code = 2514-8) Negative Negative Bilirubin, UA (test code = 17529-0) Negative Negative Blood, UA (test code = 65683-4) Small Negative A Nitrite, UA (test code = 5802-4) Negative Negative Leukocytes, UA (test code = 5799-2) Negative Negative Urobilinogen, UA (test code = 29800-0) 0.2 0.2-1.0 RBC, UA (test code = 79038-8) 51 See_Comment [Automated message] The system which [...] Occasional Squam Epithel, UA (test code = 18129-7) See_Comment [Automated message] The system which generated this result transmitted reference range: /HPF. The reference range was not used to interpret this result as normal/abnormal. Specimen Source (test code = 2795) LYNDSAY (test code = LYNDSAY) Electronics Tech ID - [auto]Electronics Tech ID - tech Lab Interpretation (test code = 04249-9) [facility] Reflex [facility] Culture 2023-03-30 08:43:51* Test Item Value Reference Range Interpretation Comme nts Color, UA (test code = 5778-6) Yellow Clarity, UA (test code = 5767-9) Clear Specific [place], UA (test code = 5811-5) 1.033 1.001-1.035 pH, UA (test code = 5803-2) 6.0 5.0-8.0 Protein, UA (test code = 61194-0) 30 mg/dL Negative A Glucose, UA (test code = 365) Negative Negative Ketones, UA (test code = 2514-8) Negative Negative Bilirubin, UA (test code = 05422-3) Negative Negative Blood, UA (test code = 23439-1) Small Negative A Nitrite, UA (test code = 5802-4) Negative Negative Leukocytes, UA (test code = 5799-2) Negative Negative Urobilinogen, UA (test code = 38849-2) 0.2 0.2-1.0 RBC, UA (test code = 07425-3) 51 See_Comment [Automated message] The system which [...] Occasional Squam Epithel, UA (test code = 35244-2) See_Comment [Automated message] The system which generated this result transmitted reference range: /HPF. The reference range was not used to interpret this result as normal/abnormal. Specimen Source (test code = 2795) LYNDSAY (test code = LYNDSAY) Electronics Tech ID - [auto]Electronics Tech ID - tech Lab Interpretation (test code = 01522-2) [facility]lex [facility] Culture 2023-03-30 08:43:51* Test Item Value Reference Range Interpretation Comme nts Color, UA (test code = 5778-6) Yellow Clarity, UA (test code = 5767-9) Clear Specific [place], UA (test code = 5811-5) 1.033 1.001-1.035 pH, UA (test code = 5803-2) 6.0 5.0-8.0 Protein, UA (test code = 54607-0) 30 mg/dL Negative A Glucose, UA (test code = 365) Negative Negative Ketones, UA (test code = 2514-8) Negative Negative Bilirubin, UA (test code = 41228-1) Negative Negative Blood, UA (test code = 05837-3) Small Negative A Nitrite, UA (test code = 5802-4) Negative Negative Leukocytes, UA (test code = 5799-2) Negative Negative Urobilinogen, UA (test code = 90911-3) 0.2 0.2-1.0 RBC, UA (test code = 94840-2) 51 See_Comment [Automated message] The system which [...] Occasional Squam Epithel, UA (test code = 65228-9) See_Comment [Automated message] The system which generated this result transmitted reference range: /HPF. The reference range was not used to interpret this result as normal/abnormal. Specimen Source (test code = 2795) LYNDSAY (test code = LYNDSAY) Electronics Tech ID - [auto]Electronics Tech ID - tech Lab Interpretation (test code = 72735-3) [facility] Reflex [facility] Culture 2023-03-30 08:43:51* Test Item Value Reference Range Interpretation Comme nts Color, UA (test code = 5778-6) Yellow Clarity, UA (test code = 5767-9) Clear Specific [place], UA (test code = 5811-5) 1.033 1.001-1.035 pH, UA (test code = 5803-2) 6.0 5.0-8.0 Protein, UA (test code = 61615-8) 30 mg/dL Negative A Glucose, UA (test code = 365) Negative Negative Ketones, UA (test code = 2514-8) Negative Negative Bilirubin, UA (test code = 47282-2) Negative Negative Blood, UA (test code = 44843-9) Small Negative A Nitrite, UA (test code = 5802-4) Negative Negative Leukocytes, UA (test code = 5799-2) Negative Negative Urobilinogen, UA (test code = 50845-0) 0.2 0.2-1.0 RBC, UA (test code = 04524-3) 51 See_Comment [Automated message] The system which [...] Occasional Squam Epithel, UA (test code = 16159-7) See_Comment [Automated message] The system which generated this result transmitted reference range: /HPF. The reference range was not used to interpret this result as normal/abnormal. Specimen Source (test code = 2795) LYNDSAY (test code = LYNDSAY) Electronics Tech ID - [auto]Electronics Tech ID - tech Lab Interpretation (test code = 87443-9) [facility]normal [facility] Reflex to Culture 2023-03-30 08:43:51* Test Item Value Reference Range Interpretation Comme nts Color, UA (test code = 5778-6) Yellow Clarity, UA (test code = 5767-9) Clear Specific [place], UA (test code = 5811-5) 1.033 1.001-1.035 pH, UA (test code = 5803-2) 6.0 5.0-8.0 Protein, UA (test code = 38124-7) 30 mg/dL Negative A Glucose, UA (test code = 365) Negative Negative Ketones, UA (test code = 2514-8) Negative Negative Bilirubin, UA (test code = 53039-3) Negative Negative Blood, UA (test code = 16758-1) Small Negative A Nitrite, UA (test code = 5802-4) Negative Negative Leukocytes, UA (test code = 5799-2) Negative Negative Urobilinogen, UA (test code = 84353-8) 0.2 0.2-1.0 RBC, UA (test code = 37370-6) 51 See_Comment [Automated message] The system which [...] Occasional Squam Epithel, UA (test code = 38997-2) See_Comment [Automated message] The system which generated this result transmitted reference range: /HPF. The reference range was not used to interpret this result as normal/abnormal. Specimen Source (test code = 2795) LYNDSAY (test code = LYNDSAY) Electronics Tech ID - [auto]Electronics Tech ID - tech Lab Interpretation (test code = 23780-5) [facility]normal [facility] Reflex to Culture 2023-03-30 08:43:51* Test Item Value Reference Range Interpretation Comme nts Color, UA (test code = 5778-6) Yellow Clarity, UA (test code = 5767-9) Clear Specific [place], UA (test code = 5811-5) 1.033 1.001-1.035 pH, UA (test code = 5803-2) 6.0 5.0-8.0 Protein, UA (test code = 63781-5) 30 mg/dL Negative A Glucose, UA (test code = 365) Negative Negative Ketones, UA (test code = 2514-8) Negative Negative Bilirubin, UA (test code = 55962-0) Negative Negative Blood, UA (test code = 51566-0) Small Negative A Nitrite, UA (test code = 5802-4) Negative Negative Leukocytes, UA (test code = 5799-2) Negative Negative Urobilinogen, UA (test code = 41471-0) 0.2 0.2-1.0 RBC, UA (test code = 30791-9) 51 See_Comment [Automated message] The system which [...] Occasional Squam Epithel, UA (test code = 09014-4) See_Comment [Automated message] The system which generated this result transmitted reference range: /HPF. The reference range was not used to interpret this result as normal/abnormal. Specimen Source (test code = 2795) LYNDSAY (test code = LYNDSAY) Electronics Tech ID - [auto]Electronics Tech ID - tech Lab Interpretation (test code = 46704-4) [facility] Reflex [facility] Culture 2023-03-30 08:43:51* Test Item Value Reference Range Interpretation Comme nts Color, UA (test code = 5778-6) Yellow Clarity, UA (test code = 5767-9) Clear Specific [place], UA (test code = 5811-5) 1.033 1.001-1.035 pH, UA (test code = 5803-2) 6.0 5.0-8.0 Protein, UA (test code = 07944-3) 30 mg/dL Negative A Glucose, UA (test code = 365) Negative Negative Ketones, UA (test code = 2514-8) Negative Negative Bilirubin, UA (test code = 01271-9) Negative Negative Blood, UA (test code = 55955-2) Small Negative A Nitrite, UA (test code = 5802-4) Negative Negative Leukocytes, UA (test code = 5799-2) Negative Negative Urobilinogen, UA (test code = 63977-9) 0.2 0.2-1.0 RBC, UA (test code = 15908-6) 51 See_Comment [Automated message] The system which [...] Occasional Squam Epithel, UA (test code = 75863-4) See_Comment [Automated message] The system which generated this result transmitted reference range: /HPF. The reference range was not used to interpret this result as normal/abnormal. Specimen Source (test code = 2795) LYNDSAY (test code = LYNDSAY) Electronics Tech ID - [auto]Electronics Tech ID - tech Lab Interpretation (test code = 14488-7) [facility] Reflex [facility] Culture 2023-03-30 08:43:51* Test Item Value Reference Range Interpretation Comme nts Color, UA (test code = 5778-6) Yellow Clarity, UA (test code = 5767-9) Clear Specific [place], UA (test code = 5811-5) 1.033 1.001-1.035 pH, UA (test code = 5803-2) 6.0 5.0-8.0 Protein, UA (test code = 09281-8) 30 mg/dL Negative A Glucose, UA (test code = 365) Negative Negative Ketones, UA (test code = 2514-8) Negative Negative Bilirubin, UA (test code = 49365-3) Negative Negative Blood, UA (test code = 33756-0) Small Negative A Nitrite, UA (test code = 5802-4) Negative Negative Leukocytes, UA (test code = 5799-2) Negative Negative Urobilinogen, UA (test code = 60897-6) 0.2 0.2-1.0 RBC, UA (test code = 10413-8) 51 See_Comment [Automated message] The system which [...] Occasional Squam Epithel, UA (test code = 87175-3) See_Comment [Automated message] The system which generated this result transmitted reference range: /HPF. The reference range was not used to interpret this result as normal/abnormal. Specimen Source (test code = 2795) LYNDSAY (test code = LYNDSAY) Electronics Tech ID - [auto]Electronics Tech ID - tech Lab Interpretation (test code = 14173-8) [facility]normal [facility] Reflex to Culture 2023-03-30 08:43:51* Test Item Value Reference Range Interpretation Comme nts Color, UA (test code = 5778-6) Yellow Clarity, UA (test code = 5767-9) Clear Specific [place], UA (test code = 5811-5) 1.033 1.001-1.035 pH, UA (test code = 5803-2) 6.0 5.0-8.0 Protein, UA (test code = 41374-2) 30 mg/dL Negative A Glucose, UA (test code = 365) Negative Negative Ketones, UA (test code = 2514-8) Negative Negative Bilirubin, UA (test code = 18765-0) Negative Negative Blood, UA (test code = 63161-1) Small Negative A Nitrite, UA (test code = 5802-4) Negative Negative Leukocytes, UA (test code = 5799-2) Negative Negative Urobilinogen, UA (test code = 89910-4) 0.2 0.2-1.0 RBC, UA (test code = 96111-8) 51 See_Comment [Automated message] The system which [...] Occasional Squam Epithel, UA (test code = 58883-7) See_Comment [Automated message] The system which generated this result transmitted reference range: /HPF. The reference range was not used to interpret this result as normal/abnormal. Specimen Source (test code = 2795) LYNDSAY (test code = LYNDSAY) Electronics Tech ID - [auto]Electronics Tech ID - tech Lab Interpretation (test code = 23060-7) [facility]normal [facility] Reflex to Culture 2023-03-30 08:43:51* Test Item Value Reference Range Interpretation Comme nts Color, UA (test code = 5778-6) Yellow Clarity, UA (test code = 5767-9) Clear Specific [place], UA (test code = 5811-5) 1.033 1.001-1.035 pH, UA (test code = 5803-2) 6.0 5.0-8.0 Protein, UA (test code = 20760-6) 30 mg/dL Negative A Glucose, UA (test code = 365) Negative Negative Ketones, UA (test code = 2514-8) Negative Negative Bilirubin, UA (test code = 98935-4) Negative Negative Blood, UA (test code = 27365-8) Small Negative A Nitrite, UA (test code = 5802-4) Negative Negative Leukocytes, UA (test code = 5799-2) Negative Negative Urobilinogen, UA (test code = 47704-1) 0.2 0.2-1.0 RBC, UA (test code = 20703-7) 51 See_Comment [Automated message] The system which [...] Occasional Squam Epithel, UA (test code = 54287-1) See_Comment [Automated message] The system which generated this result transmitted reference range: /HPF. The reference range was not used to interpret this result as normal/abnormal. Specimen Source (test code = 2795) LYNDSAY (test code = LYNDSAY) Electronics Tech ID - [auto]Electronics Tech ID - tech Lab Interpretation (test code = 79799-2) [facility]normal [facility] Reflex to Culture 2023-03-30 08:43:51* Test Item Value Reference Range Interpretation Comme nts Color, UA (test code = 5778-6) Yellow Clarity, UA (test code = 5767-9) Clear Specific [place], UA (test code = 5811-5) 1.033 1.001-1.035 pH, UA (test code = 5803-2) 6.0 5.0-8.0 Protein, UA (test code = 80709-6) 30 mg/dL Negative A Glucose, UA (test code = 365) Negative Negative Ketones, UA (test code = 2514-8) Negative Negative Bilirubin, UA (test code = 94865-1) Negative Negative Blood, UA (test code = 77798-5) Small Negative A Nitrite, UA (test code = 5802-4) Negative Negative Leukocytes, UA (test code = 5799-2) Negative Negative Urobilinogen, UA (test code = 08707-0) 0.2 0.2-1.0 RBC, UA (test code = 97945-8) 51 See_Comment [Automated message] The system which [...] Occasional Squam Epithel, UA (test code = 36768-0) See_Comment [Automated message] The system which generated this result transmitted reference range: /HPF. The reference range was not used to interpret this result as normal/abnormal. Specimen Source (test code = 2795) LYNDSAY (test code = LYNDSAY) Electronics Tech ID - [auto]Electronics Tech ID - tech Lab Interpretation (test code = 01658-1) [facility]normal [facility] Reflex to Culture 2023-03-30 08:43:51* Test Item Value Reference Range Interpretation Comme nts Color, UA (test code = 5778-6) Yellow Clarity, UA (test code = 5767-9) Clear Specific [place], UA (test code = 5811-5) 1.033 1.001-1.035 pH, UA (test code = 5803-2) 6.0 5.0-8.0 Protein, UA (test code = 75219-2) 30 mg/dL Negative A Glucose, UA (test code = 365) Negative Negative Ketones, UA (test code = 2514-8) Negative Negative Bilirubin, UA (test code = 14331-8) Negative Negative Blood, UA (test code = 89186-8) Small Negative A Nitrite, UA (test code = 5802-4) Negative Negative Leukocytes, UA (test code = 5799-2) Negative Negative Urobilinogen, UA (test code = 34188-6) 0.2 0.2-1.0 RBC, UA (test code = 95210-4) 51 See_Comment [Automated message] The system which [...] Occasional Squam Epithel, UA (test code = 83143-1) See_Comment [Automated message] The system which generated this result transmitted reference range: /HPF. The reference range was not used to interpret this result as normal/abnormal. Specimen Source (test code = 2795) LYNDSAY (test code = LYNDSAY) Electronics Tech ID - [auto]Electronics Tech ID - tech Lab Interpretation (test code = 25695-7) [facility]normal [facility] Reflex to Culture 2023-03-30 08:43:51* Test Item Value Reference Range Interpretation Comme nts Color, UA (test code = 5778-6) Yellow Clarity, UA (test code = 5767-9) Clear Specific [place], UA (test code = 5811-5) 1.033 1.001-1.035 pH, UA (test code = 5803-2) 6.0 5.0-8.0 Protein, UA (test code = 91206-4) 30 mg/dL Negative A Glucose, UA (test code = 365) Negative Negative Ketones, UA (test code = 2514-8) Negative Negative Bilirubin, UA (test code = 27767-9) Negative Negative Blood, UA (test code = 15543-2) Small Negative A Nitrite, UA (test code = 5802-4) Negative Negative Leukocytes, UA (test code = 5799-2) Negative Negative Urobilinogen, UA (test code = 85462-6) 0.2 0.2-1.0 RBC, UA (test code = 96094-0) 51 See_Comment [Automated message] The system which [...] Occasional Squam Epithel, UA (test code = 76307-4) See_Comment [Automated message] The system which generated this result transmitted reference range: /HPF. The reference range was not used to interpret this result as normal/abnormal. Specimen Source (test code = 2795) LYNDSAY (test code = LYNDSAY) Electronics Tech ID - [auto]Electronics Tech ID - tech Lab Interpretation (test code = 42959-2) [facility]normal [facility] Reflex to Culture 2023-03-30 08:43:51* Test Item Value Reference Range Interpretation Comme nts Color, UA (test code = 5778-6) Yellow Clarity, UA (test code = 5767-9) Clear Specific [place], UA (test code = 5811-5) 1.033 1.001-1.035 pH, UA (test code = 5803-2) 6.0 5.0-8.0 Protein, UA (test code = 32565-0) 30 mg/dL Negative A Glucose, UA (test code = 365) Negative Negative Ketones, UA (test code = 2514-8) Negative Negative Bilirubin, UA (test code = 03015-2) Negative Negative Blood, UA (test code = 43825-6) Small Negative A Nitrite, UA (test code = 5802-4) Negative Negative Leukocytes, UA (test code = 5799-2) Negative Negative Urobilinogen, UA (test code = 57499-7) 0.2 0.2-1.0 RBC, UA (test code = 14654-3) 51 See_Comment [Automated message] The system which [...] Occasional Squam Epithel, UA (test code = 20584-5) See_Comment [Automated message] The system which generated this result transmitted reference range: /HPF. The reference range was not used to interpret this result as normal/abnormal. Specimen Source (test code = 2795) LYNDSAY (test code = LYNDSAY) Electronics Tech ID - [auto]Electronics Tech ID - tech Lab Interpretation (test code = 35461-0) [facility] Reflex [facility] Culture 2023-03-30 08:43:51* Test Item Value Reference Range Interpretation Comme nts Color, UA (test code = 5778-6) Yellow Clarity, UA (test code = 5767-9) Clear Specific [place], UA (test code = 5811-5) 1.033 1.001-1.035 pH, UA (test code = 5803-2) 6.0 5.0-8.0 Protein, UA (test code = 66048-5) 30 mg/dL Negative A Glucose, UA (test code = 365) Negative Negative Ketones, UA (test code = 2514-8) Negative Negative Bilirubin, UA (test code = 47219-3) Negative Negative Blood, UA (test code = 13750-3) Small Negative A Nitrite, UA (test code = 5802-4) Negative Negative Leukocytes, UA (test code = 5799-2) Negative Negative Urobilinogen, UA (test code = 95085-5) 0.2 0.2-1.0 RBC, UA (test code = 72530-0) 51 See_Comment [Automated message] The system which [...] Occasional Squam Epithel, UA (test code = 82582-2) See_Comment [Automated message] The system which generated this result transmitted reference range: /HPF. The reference range was not used to interpret this result as normal/abnormal. Specimen Source (test code = 2795) LYNDSAY (test code = LYNDSAY) Electronics Tech ID - [auto]Electronics Tech ID - tech Lab Interpretation (test code = 38436-3) [facility] Reflex [facility] Culture 2023-03-30 08:43:51* Test Item Value Reference Range Interpretation Comme nts Color, UA (test code = 5778-6) Yellow Clarity, UA (test code = 5767-9) Clear Specific [place], UA (test code = 5811-5) 1.033 1.001-1.035 pH, UA (test code = 5803-2) 6.0 5.0-8.0 Protein, UA (test code = 95157-8) 30 mg/dL Negative A Glucose, UA (test code = 365) Negative Negative Ketones, UA (test code = 2514-8) Negative Negative Bilirubin, UA (test code = 93634-6) Negative Negative Blood, UA (test code = 06890-9) Small Negative A Nitrite, UA (test code = 5802-4) Negative Negative Leukocytes, UA (test code = 5799-2) Negative Negative Urobilinogen, UA (test code = 02856-9) 0.2 0.2-1.0 RBC, UA (test code = 43968-0) 51 See_Comment [Automated message] The system which [...] Occasional Squam Epithel, UA (test code = 10162-7) See_Comment [Automated message] The system which generated this result transmitted reference range: /HPF. The reference range was not used to interpret this result as normal/abnormal. Specimen Source (test code = 2795) LYNDSAY (test code = LYNDSAY) Electronics Tech ID - [auto]Electronics Tech ID - tech Lab Interpretation (test code = 95388-2) [facility]normal [facility] Reflex to Culture 2023-03-30 08:43:51* Test Item Value Reference Range Interpretation Comme nts Color, UA (test code = 5778-6) Yellow Clarity, UA (test code = 5767-9) Clear Specific [place], UA (test code = 5811-5) 1.033 1.001-1.035 pH, UA (test code = 5803-2) 6.0 5.0-8.0 Protein, UA (test code = 52873-7) 30 mg/dL Negative A Glucose, UA (test code = 365) Negative Negative Ketones, UA (test code = 2514-8) Negative Negative Bilirubin, UA (test code = 69711-1) Negative Negative Blood, UA (test code = 79553-7) Small Negative A Nitrite, UA (test code = 5802-4) Negative Negative Leukocytes, UA (test code = 5799-2) Negative Negative Urobilinogen, UA (test code = 18640-8) 0.2 0.2-1.0 RBC, UA (test code = 62200-7) 51 See_Comment [Automated message] The system which [...] Occasional Squam Epithel, UA (test code = 84049-0) See_Comment [Automated message] The system which generated this result transmitted reference range: /HPF. The reference range was not used to interpret this result as normal/abnormal. Specimen Source (test code = 2795) LYNDSAY (test code = LYNDSAY) Electronics Tech ID - [auto]Electronics Tech ID - tech Lab Interpretation (test code = 49004-8) [facility] Reflex to Culture 2023-03-30 08:43:51* Test Item Value Reference Range Interpretation Comme nts Color, UA (test code = 5778-6) Yellow Clarity, UA (test code = 5767-9) Clear Specific [place], UA (test code = 5811-5) 1.033 1.001-1.035 pH, UA (test code = 5803-2) 6.0 5.0-8.0 Protein, UA (test code = 99892-7) 30 mg/dL Negative A Glucose, UA (test code = 365) Negative Negative Ketones, UA (test code = 2514-8) Negative Negative Bilirubin, UA (test code = 51375-8) Negative Negative Blood, UA (test code = 44750-8) Small Negative A Nitrite, UA (test code = 5802-4) Negative Negative Leukocytes, UA (test code = 5799-2) Negative Negative Urobilinogen, UA (test code = 10283-1) 0.2 0.2-1.0 RBC, UA (test code = 38155-9) 51 See_Comment [Automated message] The system which [...] Occasional Squam Epithel, UA (test code = 05308-2) See_Comment [Automated message] The system which generated this result transmitted reference range: /HPF. The reference range was not used to interpret this result as normal/abnormal. Specimen Source (test code = 2795) LYNDSAY (test code = YLNDSAY) Electronics Tech ID - [auto]Electronics Tech ID - tech Lab Interpretation (test code = 33865-3) [facility] 2023-[facility]-30 08:43:51* Test Item Value Reference Range Interpretation Comme nts Color, UA (test code = 5778-6) Yellow Clarity, UA (test code = 5767-9) Clear Specific [place], UA (test code = 5811-5) 1.033 1.001-1.035 pH, UA (test code = 5803-2) 6.0 5.0-8.0 Protein, UA (test code = 88918-0) 30 mg/dL Negative A Glucose, UA (test code = 365) Negative Negative Ketones, UA (test code = 2514-8) Negative Negative Bilirubin, UA (test code = 35902-0) Negative Negative Blood, UA (test code = 60490-5) Small Negative A Nitrite, UA (test code = 5802-4) Negative Negative Leukocytes, UA (test code = 5799-2) Negative Negative Urobilinogen, UA (test code = 73359-1) 0.2 0.2-1.0 RBC, UA (test code = 12524-0) 51 See_Comment [Automated message] The system which [...] Occasional Squam Epithel, UA (test code = 28624-3) See_Comment [Automated message] The system which generated this result transmitted reference range: /HPF. The reference range was not used to interpret this result as normal/abnormal. Specimen Source (test code = 2795) LYNDSAY (test code = LYNDSAY) Electronics Tech ID - [auto]Electronics Tech ID - tech Lab Interpretation (test code = 60148-9) [facility]23[facility]30 08:43:51* Test Item Value Reference Range Interpretation Comme nts Color, UA (test code = 5778-6) Yellow Clarity, UA (test code = 5767-9) Clear Specific [place], UA (test code = 5811-5) 1.033 1.001-1.035 pH, UA (test code = 5803-2) 6.0 5.0-8.0 Protein, UA (test code = 73132-3) 30 mg/dL Negative A Glucose, UA (test code = 365) Negative Negative Ketones, UA (test code = 2514-8) Negative Negative Bilirubin, UA (test code = 47710-0) Negative Negative Blood, UA (test code = 04493-1) Small Negative A Nitrite, UA (test code = 5802-4) Negative Negative Leukocytes, UA (test code = 5799-2) Negative Negative Urobilinogen, UA (test code = 82972-8) 0.2 0.2-1.0 RBC, UA (test code = 87788-0) 51 See_Comment [Automated message] The system which [...] Occasional Squam Epithel, UA (test code = 66415-2) See_Comment [Automated message] The system which generated this result transmitted reference range: /HPF. The reference range was not used to interpret this result as normal/abnormal. Specimen Source (test code = 2795) LYNDSAY (test code = LYNDSAY) Electronics Tech ID - [auto]Electronics Tech ID - tech Lab Interpretation (test code = 35389-1) [facility] Culture 2023-03-30 08:43:51* Test Item Value Reference Range Interpretation Comme nts Color, UA (test code = 5778-6) Yellow Clarity, UA (test code = 5767-9) Clear Specific [place], UA (test code = 5811-5) 1.033 1.001-1.035 pH, UA (test code = 5803-2) 6.0 5.0-8.0 Protein, UA (test code = 65949-6) 30 mg/dL Negative A Glucose, UA (test code = 365) Negative Negative Ketones, UA (test code = 2514-8) Negative Negative Bilirubin, UA (test code = 08279-2) Negative Negative Blood, UA (test code = 90125-1) Small Negative A Nitrite, UA (test code = 5802-4) Negative Negative Leukocytes, UA (test code = 5799-2) Negative Negative Urobilinogen, UA (test code = 82868-3) 0.2 0.2-1.0 RBC, UA (test code = 26563-4) 51 See_Comment [Automated message] The system which [...] Occasional Squam Epithel, UA (test code = 25755-4) See_Comment [Automated message] The system which generated this result transmitted reference range: /HPF. The reference range was not used to interpret this result as normal/abnormal. Specimen Source (test code = 2795) LYNDSAY (test code = LYNDSAY) Electronics Tech ID - [auto]Electronics Tech ID - tech Lab Interpretation (test code = 58482-3) [facility] Reflex [facility] Culture 2023-03-30 08:43:51* Test Item Value Reference Range Interpretation Comme nts Color, UA (test code = 5778-6) Yellow Clarity, UA (test code = 5767-9) Clear Specific [place], UA (test code = 5811-5) 1.033 1.001-1.035 pH, UA (test code = 5803-2) 6.0 5.0-8.0 Protein, UA (test code = 40906-3) 30 mg/dL Negative A Glucose, UA (test code = 365) Negative Negative Ketones, UA (test code = 2514-8) Negative Negative Bilirubin, UA (test code = 35373-9) Negative Negative Blood, UA (test code = 73135-5) Small Negative A Nitrite, UA (test code = 5802-4) Negative Negative Leukocytes, UA (test code = 5799-2) Negative Negative Urobilinogen, UA (test code = 75817-6) 0.2 0.2-1.0 RBC, UA (test code = 73303-0) 51 See_Comment [Automated message] The system which [...] Occasional Squam Epithel, UA (test code = 21150-1) See_Comment [Automated message] The system which generated this result transmitted reference range: /HPF. The reference range was not used to interpret this result as normal/abnormal. Specimen Source (test code = 2795) LYNDSAY (test code = LYNDSAY) Electronics Tech ID - [auto]Electronics Tech ID - tech Lab Interpretation (test code = 01987-3) [facility] Reflex [facility] Culture 2023-03-30 08:43:51* Test Item Value Reference Range Interpretation Comme nts Color, UA (test code = 5778-6) Yellow Clarity, UA (test code = 5767-9) Clear Specific [place], UA (test code = 5811-5) 1.033 1.001-1.035 pH, UA (test code = 5803-2) 6.0 5.0-8.0 Protein, UA (test code = 17336-5) 30 mg/dL Negative A Glucose, UA (test code = 365) Negative Negative Ketones, UA (test code = 2514-8) Negative Negative Bilirubin, UA (test code = 82273-8) Negative Negative Blood, UA (test code = 49706-4) Small Negative A Nitrite, UA (test code = 5802-4) Negative Negative Leukocytes, UA (test code = 5799-2) Negative Negative Urobilinogen, UA (test code = 63534-8) 0.2 0.2-1.0 RBC, UA (test code = 05937-9) 51 See_Comment [Automated message] The system which [...] Occasional Squam Epithel, UA (test code = 79585-8) See_Comment [Automated message] The system which generated this result transmitted reference range: /HPF. The reference range was not used to interpret this result as normal/abnormal. Specimen Source (test code = 2795) LYNDSAY (test code = LYNDSAY) Electronics Tech ID - [auto]Electronics Tech ID - tech Lab Interpretation (test code = 98652-8) [facility] Reflex [facility] Culture 2023-03-30 08:43:51* Test Item Value Reference Range Interpretation Comme nts Color, UA (test code = 5778-6) Yellow Clarity, UA (test code = 5767-9) Clear Specific [place], UA (test code = 5811-5) 1.033 1.001-1.035 pH, UA (test code = 5803-2) 6.0 5.0-8.0 Protein, UA (test code = 72100-0) 30 mg/dL Negative A Glucose, UA (test code = 365) Negative Negative Ketones, UA (test code = 2514-8) Negative Negative Bilirubin, UA (test code = 86834-3) Negative Negative Blood, UA (test code = 75644-7) Small Negative A Nitrite, UA (test code = 5802-4) Negative Negative Leukocytes, UA (test code = 5799-2) Negative Negative Urobilinogen, UA (test code = 78969-1) 0.2 0.2-1.0 RBC, UA (test code = 24387-2) 51 See_Comment [Automated message] The system which [...] Occasional Squam Epithel, UA (test code = 76156-3) See_Comment [Automated message] The system which generated this result transmitted reference range: /HPF. The reference range was not used to interpret this result as normal/abnormal. Specimen Source (test code = 2795) LYNDSAY (test code = LYNDSAY) Electronics Tech ID - [auto]Electronics Tech ID - tech Lab Interpretation (test code = 88344-2) [facility] Reflex [facility] Culture 2023-03-30 08:43:51* Test Item Value Reference Range Interpretation Comme nts Color, UA (test code = 5778-6) Yellow Clarity, UA (test code = 5767-9) Clear Specific [place], UA (test code = 5811-5) 1.033 1.001-1.035 pH, UA (test code = 5803-2) 6.0 5.0-8.0 Protein, UA (test code = 76504-0) 30 mg/dL Negative A Glucose, UA (test code = 365) Negative Negative Ketones, UA (test code = 2514-8) Negative Negative Bilirubin, UA (test code = 88597-4) Negative Negative Blood, UA (test code = 45819-5) Small Negative A Nitrite, UA (test code = 5802-4) Negative Negative Leukocytes, UA (test code = 5799-2) Negative Negative Urobilinogen, UA (test code = 48292-5) 0.2 0.2-1.0 RBC, UA (test code = 92089-5) 51 See_Comment [Automated message] The system which [...] Occasional Squam Epithel, UA (test code = 08017-7) See_Comment [Automated message] The system which generated this result transmitted reference range: /HPF. The reference range was not used to interpret this result as normal/abnormal. Specimen Source (test code = 2795) LYNDSAY (test code = LYNDSAY) Electronics Tech ID - [auto]Electronics Tech ID - tech Lab Interpretation (test code = 59315-4) [facility] Reflex [facility] Culture 2023-03-30 08:43:51* Test Item Value Reference Range Interpretation Comme nts Color, UA (test code = 5778-6) Yellow Clarity, UA (test code = 5767-9) Clear Specific [place], UA (test code = 5811-5) 1.033 1.001-1.035 pH, UA (test code = 5803-2) 6.0 5.0-8.0 Protein, UA (test code = 36976-5) 30 mg/dL Negative A Glucose, UA (test code = 365) Negative Negative Ketones, UA (test code = 2514-8) Negative Negative Bilirubin, UA (test code = 27917-3) Negative Negative Blood, UA (test code = 17839-3) Small Negative A Nitrite, UA (test code = 5802-4) Negative Negative Leukocytes, UA (test code = 5799-2) Negative Negative Urobilinogen, UA (test code = 40820-9) 0.2 0.2-1.0 RBC, UA (test code = 52408-1) 51 See_Comment [Automated message] The system which [...] Occasional Squam Epithel, UA (test code = 90598-2) See_Comment [Automated message] The system which generated this result transmitted reference range: /HPF. The reference range was not used to interpret this result as normal/abnormal. Specimen Source (test code = 2795) LYNDSAY (test code = LYNDSAY) Electronics Tech ID - [auto]Electronics Tech ID - tech Lab Interpretation (test code = 77694-8) [facility] Reflex [facility] Culture 2023-03-30 08:43:51* Test Item Value Reference Range Interpretation Comme nts Color, UA (test code = 5778-6) Yellow Clarity, UA (test code = 5767-9) Clear Specific [place], UA (test code = 5811-5) 1.033 1.001-1.035 pH, UA (test code = 5803-2) 6.0 5.0-8.0 Protein, UA (test code = 48947-0) 30 mg/dL Negative A Glucose, UA (test code = 365) Negative Negative Ketones, UA (test code = 2514-8) Negative Negative Bilirubin, UA (test code = 39191-1) Negative Negative Blood, UA (test code = 27303-4) Small Negative A Nitrite, UA (test code = 5802-4) Negative Negative Leukocytes, UA (test code = 5799-2) Negative Negative Urobilinogen, UA (test code = 78712-2) 0.2 0.2-1.0 RBC, UA (test code = 79724-9) 51 See_Comment [Automated message] The system which [...] Occasional Squam Epithel, UA (test code = 45703-6) See_Comment [Automated message] The system which generated this result transmitted reference range: /HPF. The reference range was not used to interpret this result as normal/abnormal. Specimen Source (test code = 2795) LYNDSAY (test code = LYNDSAY) Electronics Tech ID - [auto]Electronics Tech ID - tech Lab Interpretation (test code = 59606-3) [facility]normal [facility] Reflex to Culture 2023-03-30 08:43:51* Test Item Value Reference Range Interpretation Comme nts Color, UA (test code = 5778-6) Yellow Clarity, UA (test code = 5767-9) Clear Specific [place], UA (test code = 5811-5) 1.033 1.001-1.035 pH, UA (test code = 5803-2) 6.0 5.0-8.0 Protein, UA (test code = 01996-0) 30 mg/dL Negative A Glucose, UA (test code = 365) Negative Negative Ketones, UA (test code = 2514-8) Negative Negative Bilirubin, UA (test code = 56070-2) Negative Negative Blood, UA (test code = 58232-2) Small Negative A Nitrite, UA (test code = 5802-4) Negative Negative Leukocytes, UA (test code = 5799-2) Negative Negative Urobilinogen, UA (test code = 79412-7) 0.2 0.2-1.0 RBC, UA (test code = 40040-5) 51 See_Comment [Automated message] The system which [...] Occasional Squam Epithel, UA (test code = 96711-6) See_Comment [Automated message] The system which generated this result transmitted reference range: /HPF. The reference range was not used to interpret this result as normal/abnormal. Specimen Source (test code = 2795) LYNDSAY (test code = LYNDSAY) Electronics Tech ID - [auto]Electronics Tech ID - tech Lab Interpretation (test code = 08351-4) [facility]normal [facility] Reflex [facility] Culture 2023-03-30 08:43:51* Test Item Value Reference Range Interpretation Comme nts Color, UA (test code = 5778-6) Yellow Clarity, UA (test code = 5767-9) Clear Specific [place], UA (test code = 5811-5) 1.033 1.001-1.035 pH, UA (test code = 5803-2) 6.0 5.0-8.0 Protein, UA (test code = 94591-9) 30 mg/dL Negative A Glucose, UA (test code = 365) Negative Negative Ketones, UA (test code = 2514-8) Negative Negative Bilirubin, UA (test code = 82865-1) Negative Negative Blood, UA (test code = 79469-2) Small Negative A Nitrite, UA (test code = 5802-4) Negative Negative Leukocytes, UA (test code = 5799-2) Negative Negative Urobilinogen, UA (test code = 98215-7) 0.2 0.2-1.0 RBC, UA (test code = 88865-9) 51 See_Comment [Automated message] The system which [...] Occasional Squam Epithel, UA (test code = 37336-6) See_Comment [Automated message] The system which generated this result transmitted reference range: /HPF. The reference range was not used to interpret this result as normal/abnormal. Specimen Source (test code = 2795) LYNDSAY (test code = LYNDSAY) Electronics Tech ID - [auto]Electronics Tech ID - tech Lab Interpretation (test code = 32586-8) [facility]normal [facility] Reflex [facility] Culture 2023-03-30 08:43:51* Test Item Value Reference Range Interpretation Comme nts Color, UA (test code = 5778-6) Yellow Clarity, UA (test code = 5767-9) Clear Specific [place], UA (test code = 5811-5) 1.033 1.001-1.035 pH, UA (test code = 5803-2) 6.0 5.0-8.0 Protein, UA (test code = 39209-5) 30 mg/dL Negative A Glucose, UA (test code = 365) Negative Negative Ketones, UA (test code = 2514-8) Negative Negative Bilirubin, UA (test code = 92563-3) Negative Negative Blood, UA (test code = 09406-5) Small Negative A Nitrite, UA (test code = 5802-4) Negative Negative Leukocytes, UA (test code = 5799-2) Negative Negative Urobilinogen, UA (test code = 26246-7) 0.2 0.2-1.0 RBC, UA (test code = 39882-3) 51 See_Comment [Automated message] The system which [...] Occasional Squam Epithel, UA (test code = 43147-7) See_Comment [Automated message] The system which generated this result transmitted reference range: /HPF. The reference range was not used to interpret this result as normal/abnormal. Specimen Source (test code = 2795) LYNDSAY (test code = LYNDSAY) Electronics Tech ID - [auto]Electronics Tech ID - tech Lab Interpretation (test code = 98019-4) [facility] Reflex to Culture 2023-03-30 08:43:51* Test Item Value Reference Range Interpretation Comme nts Color, UA (test code = 5778-6) Yellow Clarity, UA (test code = 5767-9) Clear Specific [place], UA (test code = 5811-5) 1.033 1.001-1.035 pH, UA (test code = 5803-2) 6.0 5.0-8.0 Protein, UA (test code = 93285-0) 30 mg/dL Negative A Glucose, UA (test code = 365) Negative Negative Ketones, UA (test code = 2514-8) Negative Negative Bilirubin, UA (test code = 26993-7) Negative Negative Blood, UA (test code = 21922-9) Small Negative A Nitrite, UA (test code = 5802-4) Negative Negative Leukocytes, UA (test code = 5799-2) Negative Negative Urobilinogen, UA (test code = 22997-1) 0.2 0.2-1.0 RBC, UA (test code = 16758-5) 51 See_Comment [Automated message] The system which [...] Occasional Squam Epithel, UA (test code = 49346-7) See_Comment [Automated message] The system which generated this result transmitted reference range: /HPF. The reference range was not used to interpret this result as normal/abnormal. Specimen Source (test code = 2795) LYNDSAY (test code = LYNDSAY) Electronics Tech ID - [auto]Electronics Tech ID - tech Lab Interpretation (test code = 79609-7) [facility]normal [facility] Reflex to Culture 2023-03-30 08:43:51* Test Item Value Reference Range Interpretation Comme nts Color, UA (test code = 5778-6) Yellow Clarity, UA (test code = 5767-9) Clear Specific [place], UA (test code = 5811-5) 1.033 1.001-1.035 pH, UA (test code = 5803-2) 6.0 5.0-8.0 Protein, UA (test code = 88022-9) 30 mg/dL Negative A Glucose, UA (test code = 365) Negative Negative Ketones, UA (test code = 2514-8) Negative Negative Bilirubin, UA (test code = 61682-9) Negative Negative Blood, UA (test code = 40942-7) Small Negative A Nitrite, UA (test code = 5802-4) Negative Negative Leukocytes, UA (test code = 5799-2) Negative Negative Urobilinogen, UA (test code = 41567-8) 0.2 0.2-1.0 RBC, UA (test code = 68323-6) 51 See_Comment [Automated message] The system which [...] Occasional Squam Epithel, UA (test code = 29822-3) See_Comment [Automated message] The system which generated this result transmitted reference range: /HPF. The reference range was not used to interpret this result as normal/abnormal. Specimen Source (test code = 2795) LYNDSAY (test code = LYNDSAY) Electronics Tech ID - [auto]Electronics Tech ID - tech Lab Interpretation (test code = 08399-1) [facility] Reflex [facility] Culture 2023-03-30 08:43:51* Test Item Value Reference Range Interpretation Comme nts Color, UA (test code = 5778-6) Yellow Clarity, UA (test code = 5767-9) Clear Specific [place], UA (test code = 5811-5) 1.033 1.001-1.035 pH, UA (test code = 5803-2) 6.0 5.0-8.0 Protein, UA (test code = 04594-2) 30 mg/dL Negative A Glucose, UA (test code = 365) Negative Negative Ketones, UA (test code = 2514-8) Negative Negative Bilirubin, UA (test code = 19263-0) Negative Negative Blood, UA (test code = 72312-3) Small Negative A Nitrite, UA (test code = 5802-4) Negative Negative Leukocytes, UA (test code = 5799-2) Negative Negative Urobilinogen, UA (test code = 66653-4) 0.2 0.2-1.0 RBC, UA (test code = 19810-5) 51 See_Comment [Automated message] The system which [...] Occasional Squam Epithel, UA (test code = 31556-4) See_Comment [Automated message] The system which generated this result transmitted reference range: /HPF. The reference range was not used to interpret this result as normal/abnormal. Specimen Source (test code = 2795) LYNDSAY (test code = LYNDSAY) Electronics Tech ID - [auto]Electronics Tech ID - tech Lab Interpretation (test code = 59720-8) [facility] Reflex [facility] Culture 2023-03-30 08:43:51* Test Item Value Reference Range Interpretation Comme nts Color, UA (test code = 5778-6) Yellow Clarity, UA (test code = 5767-9) Clear Specific [place], UA (test code = 5811-5) 1.033 1.001-1.035 pH, UA (test code = 5803-2) 6.0 5.0-8.0 Protein, UA (test code = 65410-1) 30 mg/dL Negative A Glucose, UA (test code = 365) Negative Negative Ketones, UA (test code = 2514-8) Negative Negative Bilirubin, UA (test code = 15044-0) Negative Negative Blood, UA (test code = 34605-3) Small Negative A Nitrite, UA (test code = 5802-4) Negative Negative Leukocytes, UA (test code = 5799-2) Negative Negative Urobilinogen, UA (test code = 46215-5) 0.2 0.2-1.0 RBC, UA (test code = 84058-1) 51 See_Comment [Automated message] The system which [...] Occasional Squam Epithel, UA (test code = 59792-7) See_Comment [Automated message] The system which generated this result transmitted reference range: /HPF. The reference range was not used to interpret this result as normal/abnormal. Specimen Source (test code = 2795) LYNDSAY (test code = LYNDSAY) Electronics Tech ID - [auto]Electronics Tech ID - tech Lab Interpretation (test code = 46510-9) [facility] Reflex to Culture 2023-03-30 08:43:51* Test Item Value Reference Range Interpretation Comme nts Color, UA (test code = 5778-6) Yellow Clarity, UA (test code = 5767-9) Clear Specific [place], UA (test code = 5811-5) 1.033 1.001-1.035 pH, UA (test code = 5803-2) 6.0 5.0-8.0 Protein, UA (test code = 33766-6) 30 mg/dL Negative A Glucose, UA (test code = 365) Negative Negative Ketones, UA (test code = 2514-8) Negative Negative Bilirubin, UA (test code = 94618-4) Negative Negative Blood, UA (test code = 12398-2) Small Negative A Nitrite, UA (test code = 5802-4) Negative Negative Leukocytes, UA (test code = 5799-2) Negative Negative Urobilinogen, UA (test code = 25621-1) 0.2 0.2-1.0 RBC, UA (test code = 45363-6) 51 See_Comment [Automated message] The system which [...] Occasional Squam Epithel, UA (test code = 63121-5) See_Comment [Automated message] The system which generated this result transmitted reference range: /HPF. The reference range was not used to interpret this result as normal/abnormal. Specimen Source (test code = 2795) LYNDSAY (test code = LYNDSAY) Electronics Tech ID - [auto]Electronics Tech ID - tech Lab Interpretation (test code = 74709-8) [facility] Reflex to Culture 2023-03-30 08:43:51* Test Item Value Reference Range Interpretation Comme nts Color, UA (test code = 5778-6) Yellow Clarity, UA (test code = 5767-9) Clear Specific [place], UA (test code = 5811-5) 1.033 1.001-1.035 pH, UA (test code = 5803-2) 6.0 5.0-8.0 Protein, UA (test code = 29960-9) 30 mg/dL Negative A Glucose, UA (test code = 365) Negative Negative Ketones, UA (test code = 2514-8) Negative Negative Bilirubin, UA (test code = 11523-1) Negative Negative Blood, UA (test code = 91807-2) Small Negative A Nitrite, UA (test code = 5802-4) Negative Negative Leukocytes, UA (test code = 5799-2) Negative Negative Urobilinogen, UA (test code = 35527-4) 0.2 0.2-1.0 RBC, UA (test code = 51350-3) 51 See_Comment [Automated message] The system which [...] Occasional Squam Epithel, UA (test code = 58872-0) See_Comment [Automated message] The system which generated this result transmitted reference range: /HPF. The reference range was not used to interpret this result as normal/abnormal. Specimen Source (test code = 2795) LYNDSAY (test code = LYNDSAY) Electronics Tech ID - [auto]Electronics Tech ID - tech Lab Interpretation (test code = 76308-8) [facility] Reflex [facility] Culture 2023-03-30 08:43:51* Test Item Value Reference Range Interpretation Comme nts Color, UA (test code = 5778-6) Yellow Clarity, UA (test code = 5767-9) Clear Specific [place], UA (test code = 5811-5) 1.033 1.001-1.035 pH, UA (test code = 5803-2) 6.0 5.0-8.0 Protein, UA (test code = 76360-6) 30 mg/dL Negative A Glucose, UA (test code = 365) Negative Negative Ketones, UA (test code = 2514-8) Negative Negative Bilirubin, UA (test code = 08430-7) Negative Negative Blood, UA (test code = 25586-7) Small Negative A Nitrite, UA (test code = 5802-4) Negative Negative Leukocytes, UA (test code = 5799-2) Negative Negative Urobilinogen, UA (test code = 99423-9) 0.2 0.2-1.0 RBC, UA (test code = 43525-7) 51 See_Comment [Automated message] The system which [...] Occasional Squam Epithel, UA (test code = 59780-0) See_Comment [Automated message] The system which generated this result transmitted reference range: /HPF. The reference range was not used to interpret this result as normal/abnormal. Specimen Source (test code = 2795) LYNDSAY (test code = LYNDSAY) Electronics Tech ID - [auto]Electronics Tech ID - tech Lab Interpretation (test code = 07593-8) [facility] Culture 2023-03-30 08:43:51* Test Item Value Reference Range Interpretation Comme nts Color, UA (test code = 5778-6) Yellow Clarity, UA (test code = 5767-9) Clear Specific [place], UA (test code = 5811-5) 1.033 1.001-1.035 pH, UA (test code = 5803-2) 6.0 5.0-8.0 Protein, UA (test code = 76168-5) 30 mg/dL Negative A Glucose, UA (test code = 365) Negative Negative Ketones, UA (test code = 2514-8) Negative Negative Bilirubin, UA (test code = 12290-8) Negative Negative Blood, UA (test code = 26280-9) Small Negative A Nitrite, UA (test code = 5802-4) Negative Negative Leukocytes, UA (test code = 5799-2) Negative Negative Urobilinogen, UA (test code = 28863-5) 0.2 0.2-1.0 RBC, UA (test code = 96868-3) 51 See_Comment [Automated message] The system which [...] Occasional Squam Epithel, UA (test code = 02296-7) See_Comment [Automated message] The system which generated this result transmitted reference range: /HPF. The reference range was not used to interpret this result as normal/abnormal. Specimen Source (test code = 2795) LYNDSAY (test code = LYNDSAY) Electronics Tech ID - [auto]Electronics Tech ID - tech Lab Interpretation (test code = 95837-4) [facility] Reflex [facility] Culture 2023-03-30 08:43:51* Test Item Value Reference Range Interpretation Comme nts Color, UA (test code = 5778-6) Yellow Clarity, UA (test code = 5767-9) Clear Specific [place], UA (test code = 5811-5) 1.033 1.001-1.035 pH, UA (test code = 5803-2) 6.0 5.0-8.0 Protein, UA (test code = 91007-6) 30 mg/dL Negative A Glucose, UA (test code = 365) Negative Negative Ketones, UA (test code = 2514-8) Negative Negative Bilirubin, UA (test code = 51368-4) Negative Negative Blood, UA (test code = 63103-0) Small Negative A Nitrite, UA (test code = 5802-4) Negative Negative Leukocytes, UA (test code = 5799-2) Negative Negative Urobilinogen, UA (test code = 42261-1) 0.2 0.2-1.0 RBC, UA (test code = 18519-8) 51 See_Comment [Automated message] The system which [...] Occasional Squam Epithel, UA (test code = 95071-7) See_Comment [Automated message] The system which generated this result transmitted reference range: /HPF. The reference range was not used to interpret this result as normal/abnormal. Specimen Source (test code = 2795) LYNDSAY (test code = LYNDSAY) Electronics Tech ID - [auto]Electronics Tech ID - tech Lab Interpretation (test code = 82016-7) [facility] 2023-03-30 08:43:51* Test Item Value Reference Range Interpretation Comme nts Color, UA (test code = 5778-6) Yellow Clarity, UA (test code = 5767-9) Clear Specific [place], UA (test code = 5811-5) 1.033 1.001-1.035 pH, UA (test code = 5803-2) 6.0 5.0-8.0 Protein, UA (test code = 45945-2) 30 mg/dL Negative A Glucose, UA (test code = 365) Negative Negative Ketones, UA (test code = 2514-8) Negative Negative Bilirubin, UA (test code = 36715-2) Negative Negative Blood, UA (test code = 66418-1) Small Negative A Nitrite, UA (test code = 5802-4) Negative Negative Leukocytes, UA (test code = 5799-2) Negative Negative Urobilinogen, UA (test code = 47685-7) 0.2 0.2-1.0 RBC, UA (test code = 72532-7) 51 See_Comment [Automated message] The system which [...] Occasional Squam Epithel, UA (test code = 22045-3) See_Comment [Automated message] The system which generated this result transmitted reference range: /HPF. The reference range was not used to interpret this result as normal/abnormal. Specimen Source (test code = 2795) LYNDSAY (test code = LYNDSAY) Electronics Tech ID - [auto]Electronics Tech ID - tech Lab Interpretation (test code = 29212-3) [facility] Reflex [facility] Culture 2023-03-30 08:43:51* Test Item Value Reference Range Interpretation Comme nts Color, UA (test code = 5778-6) Yellow Clarity, UA (test code = 5767-9) Clear Specific [place], UA (test code = 5811-5) 1.033 1.001-1.035 pH, UA (test code = 5803-2) 6.0 5.0-8.0 Protein, UA (test code = 48591-2) 30 mg/dL Negative A Glucose, UA (test code = 365) Negative Negative Ketones, UA (test code = 2514-8) Negative Negative Bilirubin, UA (test code = 17503-2) Negative Negative Blood, UA (test code = 63885-4) Small Negative A Nitrite, UA (test code = 5802-4) Negative Negative Leukocytes, UA (test code = 5799-2) Negative Negative Urobilinogen, UA (test code = 25076-2) 0.2 0.2-1.0 RBC, UA (test code = 15443-2) 51 See_Comment [Automated message] The system which [...] Occasional Squam Epithel, UA (test code = 12004-8) See_Comment [Automated message] The system which generated this result transmitted reference range: /HPF. The reference range was not used to interpret this result as normal/abnormal. Specimen Source (test code = 2795) LYNDSAY (test code = LYNDSAY) Electronics Tech ID - [auto]Electronics Tech ID - tech Lab Interpretation (test code = 94831-3) [facility] Reflex to Culture 2023-03-30 08:43:51* Test Item Value Reference Range Interpretation Comme nts Color, UA (test code = 5778-6) Yellow Clarity, UA (test code = 5767-9) Clear Specific [place], UA (test code = 5811-5) 1.033 1.001-1.035 pH, UA (test code = 5803-2) 6.0 5.0-8.0 Protein, UA (test code = 31490-2) 30 mg/dL Negative A Glucose, UA (test code = 365) Negative Negative Ketones, UA (test code = 2514-8) Negative Negative Bilirubin, UA (test code = 88258-2) Negative Negative Blood, UA (test code = 16386-7) Small Negative A Nitrite, UA (test code = 5802-4) Negative Negative Leukocytes, UA (test code = 5799-2) Negative Negative Urobilinogen, UA (test code = 57318-9) 0.2 0.2-1.0 RBC, UA (test code = 06284-0) 51 See_Comment [Automated message] The system which [...] Occasional Squam Epithel, UA (test code = 00660-9) See_Comment [Automated message] The system which generated this result transmitted reference range: /HPF. The reference range was not used to interpret this result as normal/abnormal. Specimen Source (test code = 2795) LYNDSAY (test code = LYNDSAY) Electronics Tech ID - [auto]Electronics Tech ID - tech Lab Interpretation (test code = 03848-5) [facility]normal [facility] Reflex [facility] Culture 2023-03-30 08:43:51* Test Item Value Reference Range Interpretation Comme nts Color, UA (test code = 5778-6) Yellow Clarity, UA (test code = 5767-9) Clear Specific [place], UA (test code = 5811-5) 1.033 1.001-1.035 pH, UA (test code = 5803-2) 6.0 5.0-8.0 Protein, UA (test code = 94044-4) 30 mg/dL Negative A Glucose, UA (test code = 365) Negative Negative Ketones, UA (test code = 2514-8) Negative Negative Bilirubin, UA (test code = 38980-2) Negative Negative Blood, UA (test code = 43979-0) Small Negative A Nitrite, UA (test code = 5802-4) Negative Negative Leukocytes, UA (test code = 5799-2) Negative Negative Urobilinogen, UA (test code = 38861-2) 0.2 0.2-1.0 RBC, UA (test code = 15292-9) 51 See_Comment [Automated message] The system which [...] Occasional Squam Epithel, UA (test code = 77153-5) See_Comment [Automated message] The system which generated this result transmitted reference range: /HPF. The reference range was not used to interpret this result as normal/abnormal. Specimen Source (test code = 2795) LYNDSAY (test code = LYNDSAY) Electronics Tech ID - [auto]Electronics Tech ID - tech Lab Interpretation (test code = 02927-3) [facility]normal [facility] Reflex to Culture 2023-03-30 08:43:51* Test Item Value Reference Range Interpretation Comme nts Color, UA (test code = 5778-6) Yellow Clarity, UA (test code = 5767-9) Clear Specific [place], UA (test code = 5811-5) 1.033 1.001-1.035 pH, UA (test code = 5803-2) 6.0 5.0-8.0 Protein, UA (test code = 95995-8) 30 mg/dL Negative A Glucose, UA (test code = 365) Negative Negative Ketones, UA (test code = 2514-8) Negative Negative Bilirubin, UA (test code = 41410-0) Negative Negative Blood, UA (test code = 04825-7) Small Negative A Nitrite, UA (test code = 5802-4) Negative Negative Leukocytes, UA (test code = 5799-2) Negative Negative Urobilinogen, UA (test code = 95381-4) 0.2 0.2-1.0 RBC, UA (test code = 67831-5) 51 See_Comment [Automated message] The system which [...] Occasional Squam Epithel, UA (test code = 10976-8) See_Comment [Automated message] The system which generated this result transmitted reference range: /HPF. The reference range was not used to interpret this result as normal/abnormal. Specimen Source (test code = 2795) LYNDSAY (test code = LYNDSAY) Electronics Tech ID - [auto]Electronics Tech ID - tech Lab Interpretation (test code = 64485-4) [facility]normal [facility] Reflex to Culture 2023-03-30 08:43:51* Test Item Value Reference Range Interpretation Comme nts Color, UA (test code = 5778-6) Yellow Clarity, UA (test code = 5767-9) Clear Specific [place], UA (test code = 5811-5) 1.033 1.001-1.035 pH, UA (test code = 5803-2) 6.0 5.0-8.0 Protein, UA (test code = 60993-9) 30 mg/dL Negative A Glucose, UA (test code = 365) Negative Negative Ketones, UA (test code = 2514-8) Negative Negative Bilirubin, UA (test code = 43405-1) Negative Negative Blood, UA (test code = 78336-5) Small Negative A Nitrite, UA (test code = 5802-4) Negative Negative Leukocytes, UA (test code = 5799-2) Negative Negative Urobilinogen, UA (test code = 68735-2) 0.2 0.2-1.0 RBC, UA (test code = 19237-6) 51 See_Comment [Automated message] The system which [...] Occasional Squam Epithel, UA (test code = 37952-8) See_Comment [Automated message] The system which generated this result transmitted reference range: /HPF. The reference range was not used to interpret this result as normal/abnormal. Specimen Source (test code = 2795) LYNDSAY (test code = LYNDSAY) Electronics Tech ID - [auto]Electronics Tech ID - tech Lab Interpretation (test code = 72695-1) [facility] Reflex [facility] Culture 2023-03-30 08:43:51* Test Item Value Reference Range Interpretation Comme nts Color, UA (test code = 5778-6) Yellow Clarity, UA (test code = 5767-9) Clear Specific [place], UA (test code = 5811-5) 1.033 1.001-1.035 pH, UA (test code = 5803-2) 6.0 5.0-8.0 Protein, UA (test code = 13960-7) 30 mg/dL Negative A Glucose, UA (test code = 365) Negative Negative Ketones, UA (test code = 2514-8) Negative Negative Bilirubin, UA (test code = 04074-2) Negative Negative Blood, UA (test code = 71577-2) Small Negative A Nitrite, UA (test code = 5802-4) Negative Negative Leukocytes, UA (test code = 5799-2) Negative Negative Urobilinogen, UA (test code = 29512-1) 0.2 0.2-1.0 RBC, UA (test code = 27141-9) 51 See_Comment [Automated message] The system which [...] Occasional Squam Epithel, UA (test code = 10922-4) See_Comment [Automated message] The system which generated this result transmitted reference range: /HPF. The reference range was not used to interpret this result as normal/abnormal. Specimen Source (test code = 2795) LYNDSAY (test code = LYNDSAY) Electronics Tech ID - [auto]Electronics Tech ID - tech Lab Interpretation (test code = 81997-0) [facility]normal [facility] Reflex to Culture 2023-03-30 08:43:51* Test Item Value Reference Range Interpretation Comme nts Color, UA (test code = 5778-6) Yellow Clarity, UA (test code = 5767-9) Clear Specific [place], UA (test code = 5811-5) 1.033 1.001-1.035 pH, UA (test code = 5803-2) 6.0 5.0-8.0 Protein, UA (test code = 01159-6) 30 mg/dL Negative A Glucose, UA (test code = 365) Negative Negative Ketones, UA (test code = 2514-8) Negative Negative Bilirubin, UA (test code = 48466-9) Negative Negative Blood, UA (test code = 36970-1) Small Negative A Nitrite, UA (test code = 5802-4) Negative Negative Leukocytes, UA (test code = 5799-2) Negative Negative Urobilinogen, UA (test code = 98985-5) 0.2 0.2-1.0 RBC, UA (test code = 07839-3) 51 See_Comment [Automated message] The system which [...] Occasional Squam Epithel, UA (test code = 34049-2) See_Comment [Automated message] The system which generated this result transmitted reference range: /HPF. The reference range was not used to interpret this result as normal/abnormal. Specimen Source (test code = 2795) LYNDSAY (test code = LYNDSAY) Electronics Tech ID - [auto]Electronics Tech ID - tech Lab Interpretation (test code = 34340-6) [facility]normal [facility] Reflex to Culture 2023-03-30 08:43:51* Test Item Value Reference Range Interpretation Comme nts Color, UA (test code = 5778-6) Yellow Clarity, UA (test code = 5767-9) Clear Specific [place], UA (test code = 5811-5) 1.033 1.001-1.035 pH, UA (test code = 5803-2) 6.0 5.0-8.0 Protein, UA (test code = 93051-1) 30 mg/dL Negative A Glucose, UA (test code = 365) Negative Negative Ketones, UA (test code = 2514-8) Negative Negative Bilirubin, UA (test code = 78744-0) Negative Negative Blood, UA (test code = 75148-6) Small Negative A Nitrite, UA (test code = 5802-4) Negative Negative Leukocytes, UA (test code = 5799-2) Negative Negative Urobilinogen, UA (test code = 08979-2) 0.2 0.2-1.0 RBC, UA (test code = 12624-6) 51 See_Comment [Automated message] The system which [...] Occasional Squam Epithel, UA (test code = 40591-7) See_Comment [Automated message] The system which generated this result transmitted reference range: /HPF. The reference range was not used to interpret this result as normal/abnormal. Specimen Source (test code = 2795) LYNDSAY (test code = LYNDSAY) Electronics Tech ID - [auto]Electronics Tech ID - tech Lab Interpretation (test code = 13369-4) [facility]normal [facility] Reflex to Culture 2023-03-30 08:43:51* Test Item Value Reference Range Interpretation Comme nts Color, UA (test code = 5778-6) Yellow Clarity, UA (test code = 5767-9) Clear Specific [place], UA (test code = 5811-5) 1.033 1.001-1.035 pH, UA (test code = 5803-2) 6.0 5.0-8.0 Protein, UA (test code = 34108-6) 30 mg/dL Negative A Glucose, UA (test code = 365) Negative Negative Ketones, UA (test code = 2514-8) Negative Negative Bilirubin, UA (test code = 51978-3) Negative Negative Blood, UA (test code = 77930-4) Small Negative A Nitrite, UA (test code = 5802-4) Negative Negative Leukocytes, UA (test code = 5799-2) Negative Negative Urobilinogen, UA (test code = 30373-0) 0.2 0.2-1.0 RBC, UA (test code = 65983-1) 51 See_Comment [Automated message] The system which [...] Occasional Squam Epithel, UA (test code = 61423-1) See_Comment [Automated message] The system which generated this result transmitted reference range: /HPF. The reference range was not used to interpret this result as normal/abnormal. Specimen Source (test code = 2795) LYNDSAY (test code = LYNDSAY) Electronics Tech ID - [auto]Electronics Tech ID - tech Lab Interpretation (test code = 01048-3) [facility]normal [facility] Reflex to Culture 2023-03-30 08:43:51* Test Item Value Reference Range Interpretation Comme nts Color, UA (test code = 5778-6) Yellow Clarity, UA (test code = 5767-9) Clear Specific [place], UA (test code = 5811-5) 1.033 1.001-1.035 pH, UA (test code = 5803-2) 6.0 5.0-8.0 Protein, UA (test code = 74201-1) 30 mg/dL Negative A Glucose, UA (test code = 365) Negative Negative Ketones, UA (test code = 2514-8) Negative Negative Bilirubin, UA (test code = 38760-2) Negative Negative Blood, UA (test code = 62250-0) Small Negative A Nitrite, UA (test code = 5802-4) Negative Negative Leukocytes, UA (test code = 5799-2) Negative Negative Urobilinogen, UA (test code = 79712-5) 0.2 0.2-1.0 RBC, UA (test code = 05066-7) 51 See_Comment [Automated message] The system which [...] Occasional Squam Epithel, UA (test code = 12752-2) See_Comment [Automated message] The system which generated this result transmitted reference range: /HPF. The reference range was not used to interpret this result as normal/abnormal. Specimen Source (test code = 2795) LYNDSAY (test code = LYNDSAY) Electronics Tech ID - [auto]Electronics Tech ID - tech Lab Interpretation (test code = 98187-3) [facility] UR[facility] [id number] 08:43:51 * Test Item Value Reference Range [...] < /HPF SOURCE(BEAKER) (test code = 2795) Electronics Tech ID - [auto]Electronics Tech ID - techCOMPREHENSIVE METABOLIC [id number] 04:37:29* Test Item Value Reference Range Interpretation [...] GFR is not applicable for dialysis patients Electronics Tech ID - MATT BPT/WJMJ9744-38-42 04:30:17* Test Item Value Reference Range Interpretation Comme nts PROTIME (BEAKER) (test code = 759) 13.8 seconds 11.9-14.2 INR (BEAKER) (test code = 370) 1.13 See_Comment [Automated [employer]] The system which generated this result transmitted [...] code = 413) 0 /100 WBC 0-0 [id number]-[id number] 00:00:00Ordered by an unspecified provider.[facility]-FKVCMRF1219-10-29 00:00:00Ordered by an unspecified provider. [facility]EKG-[id number] 00:00:00Ordered by an unspecified provider.[facility]MAGN[facility]IUM2023-[facility]-25 17:14:06* Test Item Value Reference Range Interpretation Comme nts MAGNESIUM (test code = 7909532390) 1.9 mg/dL 1.7-2.4 Lab Interpretation (test cod e = 85217-2) [facility] (84298)2022-12-11 15:16:25* Test Item Value Reference Range Interpretation Comme nts NA (test code = 0835113829) 139 mmol/L 135-145 K (test code = 0622515952) 3.5 mmol/L 3.5-5.0 CL (test code = 7374640671) 107 mmol/L 98-108 CO2 TOTAL (test code = 3108493632) 24 mmol/L 23-31 AGAP (test code = 4322285999) 8 2-16 BUN (test code = 6693036058) 9 mg/dL 7-23 GLUCOSE (test code = 0453736538) 129 mg/dL 70-110 H CREATININE (test code = 2297537005) 0.68 mg/dL 0.50-1.04 TOTAL BILI (test code = 6644524404) 0.5 mg/dL 0.1-1.1 CALCIUM (test code = 3143842583) 8.9 mg/dL 8.6-10.6 T PROTEIN (test code = 9159190739) 6.3 g/dL 6.3-8.2 ALBUMIN (test code = 8935229540) 3.8 g/dL 3.5-5.0 ALK PHOS (test code = 7939801316) 87 U/L 34-122 ALTv (test code = 1742-6) 24 U/L 5-35 AST(SGOT) (test code = 7862992972) 21 U/L 13-40 eGFR (test code = 0499794211) 91.6 mL/min/1.73m2 LYNDSAY (test code = LYNDSAY) [...] imaging tests). Lab Interpretation (test code = 40923-1) [facility]normal [facility] [id number] 15:10:45* Test Item Value Reference Range Interpretation Comme nts TROPONIN I (test code = 5783031223) 0.015 ng/mL <=0.034 LYNDSAY (test code = [...] of biotin. Lab Interpretation (test code = 49224-5) Normal [facility] Paso[facility] AOM-NNP3504-04-25 15:07:48* Test Item Value Reference Range Interpretation Comme nts NT-proBNP (test code = 0588543869) 1460 pg/mL <=125 H LYNDSAY (test code = LYNDSAY) Biotin has been reported to cause a negative bias, interpret results relative to patient's use of biotin. Lab Interpretation (test code = 40963-9) [facility]normal [facility] PasoD-TFSJR3786-66-95 14:45:24* Test Item Value Reference Range Interpretation Comments D-DIMER (test code = 3551846548) 0.99 See_Comment H [Automated message] The system [...] a diagnosis. Lab Interpretation (test code = 86034-7) Abnormal [facility] WITH [id number] 14:14:48* Test Item Value Reference Range Interpretation Comme nts WBC (test code = 6690-2) 7.86 See_Comment [Automated [employer]] The system which generated this result transmitted reference range: 4.30 - 11.10 10*3/?L. The reference range was not used to interpret this result as normal/abnormal. RBC (test code = 789-8) 5.13 See_Comment [Automated [employer]] The system which generated this result transmitted [...] g/dL 31.6-35.1 L RDW-SD (test code = 11313-8) 47.8 fL 39.0-49.9 RDW-CV (test code = 788-0) 16.9 % 12.0-15.5 H PLT (test code = 777-3) 507 See_Comment H [Automated messa ge] The system which generated this result transmitted reference range: 166 - 358 10*3/?L. The reference range was not used to interpret this result as normal/abnormal. MPV (test code = 50364-4) 8.2 fL 9.5-12.9 L NRBC/100 WBC (test code = 0216214325) 0.0 See_Comment [Automated me ssage] The system which generated this result transmitted reference range: 0.0 - 10.0 /100 WBCs. The reference range was not used to interpret this result as normal/abnormal. NRBC x10^3 (test code = 2516217735) See_Comment [Automated messa ge] The system which generated this result transmitted reference range: 10*3/?L. The reference range was not used to interpret this result as normal/abnormal. GRAN MAT (NEUT) % (test code = 770-8) 64.5 % IMM GRAN % (test code = 3893055210) 0.30 % LYMPH % (test code = 736-9) 25.6 % MONO % (test code = 5905-5) 7.5 % EOS % (test code = 713-8) 1.0 % BASO % (test code = 706-2) 1.1 % GRAN MAT x10^3(ANC) (test code = 2983611597) 5.07 10*3/uL 1.88-7.09 IMM GRAN x10^3 (test code = 1119427142) 0.00-0.06 LYMPH x10^3 (test code = 731-0) 2.01 10*3/uL 1.32-3.29 MONO x10^3 (test code = 742-7) 0.59 10*3/uL 0.33-0.92 EOS x10^3 (test code = 711-2) 0.08 10*3/uL 0.03-0.39 BASO x10^3 (test code = 704-7) 0.09 10*3/uL 0.01-0.07 H Lab Interpretation (test code = 97675-2) [facility]normal [facility] Paso[facility]PR[facility] 13:17:22* Test Item Value Reference Range Interpretation Comme nts RPR SCREEN (BEAKER) (test co de = 420) Nonreactive Nonreactive HEMOGLOBIN [id number] 10:39:49* Test Item Value Reference Range Interpretation Comme nts HEMOGLOBIN A1C ELECTROPHORESIS (LATOYA) (test code = 3811) 5.8 % See_Comment H [Automated me ssage] The system which generated this result transmitted reference range: <=5.6%. The reference range was not used to interpret this result as normal/abnormal. "The A1c is measured using a [facility]-certified method. HbA1c value equal to or greater than 6.5% as the diagnosis cutoff for diabetes. An HbA1c value of 5.7- 6.4% indicates increased risk for diabetes (prediabetes)."Electronics Tech ID - ADM VITAMIN [id number] 22:48:27* Test Item Value Reference Range Interpretation Comme nts VITAMIN B12 (LATOYA) (test c ode = 774) 227 pg/mL 213-816 Electronics Tech ID - MARCOTSH/FREE T4 IF [id number] 22:08:28* Test Item Value Reference Range Interpretation Comme nts THYROID STIMULATING HORMONE (LATOYA) (test code = 772) 3.309 uIU/mL 0.350-4.940 Electronics Tech ID - JSHIV-1 ANTIGEN WITH HIV-1/2 [id number] 22:08:28* Test Item Value Reference Range Interpretation Comme nts HIV-1 ANTIGEN WITH HIV 1\\T\\2 ANTIBODY (2) (LATOYA) (test code = 2586) Nonreactive Nonreactive Electronics Tech ID - JSC-REACTIVE [id number] 21:49:44* Test Item Value Reference Range Interpretation Comme nts C-REACTIVE PROTEIN (BEAKER) (test code = 676) 0.35 mg/dL 0.00-0.50 Electronics Tech ID - JSCOMPREHENSIVE METABOLIC [id number] 21:49:43* Test Item Value Reference Range Interpretation [...] GFR is not applicable for dialysis patients Electronics Tech ID - JSLIPID [id number] 21:49:43* Test Item Value Reference Range Interpretation [...] Borderline 130-159 High 160-189 Very High >=190 Electronics Tech ID - JSCBC W/PLT COUNT & AUTO [id number] 21:34:03* Test Item Value Reference Range Interpretation [...] Interpretation Comme nts Height (test code = 6224668955) in Weight (test code = 0606426397) lbs Systolic BP (test code = 4025102157) mmHg Diastolic BP (test code = 8039548043) mmHg Heart Rate (test code = 2379861685) bpm BSA (test code = 8582243767) 2.00 m2 Ao root diam (test code = 8783680952) 3.20 cm Aortic root (test code = 5161598676) 3.2 cm Ao root annulus (test code = 0667096334) 3.2 cm LVOT diameter (test code = 6480834216) 1.99 cm LVOT area (test code = 8906527898) 3.10 cm2 LVIDD (test code = 7095592569) 5.10 cm Left Ventricular End Diastolic Volume by Teichholz Method (test code = 3994647) 123.0 mL IVS (test code = 7996263078) 1.34 cm Interventricular Septum Diastolic Thickness by 2D (test code = 5845344) 1.34 cm LVPWD (test code = 4611546992) 1.34 cm PW (test code = 9084742229) 1.34 cm 0.6-1.1 EF(Teich) (test code = 0300077317) 41.80 % LVIDS (test code = 9195643474) 4.00 cm Left Ventricular End Systolic Volume by Teichholz Method (test code = 4636747) 71.5 mL FS (test code = 0760321278) 21 % EF - 2D (test code = 46873018) 41.80 % LA size (test code = 8482204498) 4.6 cm Pulmonic Regurgitant End Max Velocity (test code = 9748202385) 119.4 cm/s LAV(MOD-sp4) (test code = 2254889515) 95.00 mL E wave decelartion time (test code = 9025690000) 0.15 s MV stenosis pressure 1/2 time (test code = 2351037838) 45.6 ms MV Peak A Evette (test code = 9077944365) 123.8 cm/s MV Peak E Evette (test code = 9509766189) 109.7 cm/s E/A ratio (test code = 2745072799) ratio MR max PG (test code = 7919504704) 87.20 mm[Hg] MR max evette (test code = 2485761704) 466.90 cm/s Mr max evette (test code = 7254574107) 466.9 m/s MV Prop V (test code = 3740112228) 51.00 cm/s MV E/e' septal (test code = 8919536237) 8.1 cm/s Tapse (test code = 7740465664) 2.21 cm LVOT stroke volume (test code = 2281949142) 49.80 cm3 LVOT peak evette (test code = 8128773002) 89.1 cm/s LVOT mn grad (test code = 0913829470) mmHg AV LVOT peak gradient (test code = 1807479458) mmHg LVOT peak VTI (test code = 2208195687) 16.0 cm LV V1 mean (test code = 6656966761) 64.30 cm/s Aortic valve mean velocity (test code = 7215974308) 133.8 cm/s Ao peak evette (test code = 7058775229) 175.3 cm/s Ao VTI (test code = 7625522437) 32.2 cm AV area by cont VTI (test code = 7662722075) 1.6 cm2 AV area peak evette (test code = 6089564160) 1.6 cm2 Ao max PG (test code = 2650545636) 12.30 mm[Hg] AV peak gradient (test code = 6320600315) mmHg AV valve area (test code = 6002646112) 1.55 cm2 AV mean gradient (test code = 2027538382) mmHg AV regurgitation pressure 1/2 time (test code = 8196772557) 358.5 ms AI dec slope (test code = 3931726174) 364.20 cm/s2 AI max evette (test code = 9288149860) 445.80 cm/s AI max PG (test code = 7349935756) 79.50 mm[Hg] Radiology Study observation (narrative) (test code = 55956-9) LYNDSAY (test code = LYNDSAY) ?Left?Ventricle: Left [...] mL of Lumason ultrasound enhancing agent used. [facility] 10:43:32* Test Item Value Reference Range Interpretation Comme [facility] POCT GLU (test code = 9464444805) 148 mg/dL 70-110 H Lab Interpretation (test cod e = 78979-0) Abnormal [facility] PasoACTIVATED PARTIAL THRMPLAS [id number] 18:39:45* Test Item Value Reference Range Interpretation Comme [facility] APTT Patient (test code = 3173-2) See_Comment [Automated message] The system which generated this result transmitted reference range: 23 - 38 Seconds. The reference range was not used to interpret this result as normal/abnormal. LYNDSAY (test code = LYNDSAY) The [facility] patient population mean normal value for aPTT is 30 seconds. Lab Interpretation (test code = 27386-5) Normal [facility] PasoPROTHROMBIN TIME / [id number] 18:37:42* Test Item Value Reference Range Interpretation Comme nts PROTIME PATIENT (test code = 5964-2) See_Comment [Automated [employer] ge] The system which generated this result transmitted reference range: 12.0 - 14.7 Seconds. The reference range was not used to interpret this result as normal/abnormal. INR (test code = 6301-6) Normal INR <1.1; Warfarin Therapeutic range 2.0 to 3.0 or 2.5 to 3.5, depending upon the indications. Lab Interpretation (test code = 86534-6) Normal [facility] PasoTROP[facility]IN [id number] 18:32:01* Test Item Value Reference Range Interpretation Comments TROPONIN I (test code = 5294454744) 0.019 ng/mL See_Comment [Automated message] The system [...] of biotin. Lab Interpretation (test code = 92902-6) Normal [facility] PasoN-TERMINAL [id number] 18:29:01* Test Item Value Reference Range Interpretation Comme nts NT-proBNP (test code = 5832821008) 2770 pg/mL See_Comment H [Automated message] The system which generated this result transmitted reference range: <=125. The reference range was not used to interpret this result as normal/abnormal. LYNDSAY (test code = LYNDSAY) Biotin has been reported to cause a negative bias, interpret results relative to patient's use of biotin. Lab Interpretation (test code = 97014-6) Abnormal [facility]. METABOLIC PANEL (97890)2022-07-31 18:21:42* Test Item Value Reference Range Interpretation Comme nts NA (test code = 0538347214) 136 mmol/L 135-145 K (test code = 9664613253) 4.6 mmol/L 3.5-5.0 CL (test code = 2899747868) 104 mmol/L 98-108 CO2 TOTAL (test code = 4261899710) 26 mmol/L 23-31 AGAP (test code = 3899827742) 2-16 BUN (test code = 5882141772) 9 mg/dL 7-23 GLUCOSE (test code = 3210610910) 97 mg/dL 70-110 CREATININE (test code = 8053340213) 0.64 mg/dL 0.50-1.04 TOTAL BILI (test code = 6624349131) 0.5 mg/dL 0.1-1.1 CALCIUM (test code = 3076351966) 8.2 mg/dL 8.6-10.6 L T PROTEIN (test code = 1852535675) 6.5 g/dL 6.3-8.2 ALBUMIN (test code = 0125640824) 3.9 g/dL 3.5-5.0 ALK PHOS (test code = 4679084669) 93 U/L 34-122 ALTv (test code = 1742-6) 18 U/L 5-35 AST(SGOT) (test code = 9965140066) 19 U/L 13-40 eGFR (test code = 5976454171) mL/min/1.73m2 LYNDSAY (test code = LYNDSAY) Association [...] imaging tests). Lab Interpretation (test code = 72947-8) Abnormal [facility] PasoLIPASE2023-01-12 18:21:01* Test Item Value Reference Range Interpretation Comme nts LIPASE (test code = 3974389577) 54 U/L 0-220 Lab Interpretation (test cod e = 41092-5) Normal [facility] WITH [id number] 18:07:00* Test Item Value Reference Range Interpretation Comme nts WBC (test code = 6690-2) See_Comment [Automated Material Mix] The system which generated this result transmitted reference range: 4.30 - 11.10 10*3/?L. The reference range was not used to interpret this result as normal/abnormal. RBC (test code = 789-8) See_Comment [Automated Material Mix] The system which generated this result transmitted [...] g/dL 31.6-35.1 L RDW-SD (test code = 47548-5) 53.1 fL 39.0-49.9 H RDW-CV (test code = 788-0) 17.0 % 12.0-15.5 H PLT (test code = 777-3) See_Comment H [Automated messa ge] The system which generated this result transmitted reference range: 166 - 358 10*3/?L. The reference range was not used to interpret this result as normal/abnormal. MPV (test code = 01765-6) 8.2 fL 9.5-12.9 L NRBC/100 WBC (test code = 6620890213) See_Comment [Automated [employer] ssage] The system which generated this result transmitted reference range: 0.0 - 10.0 /100 WBCs. The reference range was not used to interpret this result as normal/abnormal. NRBC x10^3 (test code = 7160883831) See_Comment [Automated messa ge] The system which generated this result transmitted reference range: 10*3/?L. The reference range was not used to interpret this result as normal/abnormal. GRAN MAT (NEUT) % (test code = 770-8) 64.0 % IMM GRAN % (test code = 9471375268) 0.40 % LYMPH % (test code = 736-9) 27.3 % MONO % (test code = 5905-5) 6.5 % EOS % (test code = 713-8) 1.1 % BASO % (test code = 706-2) 0.7 % GRAN MAT x10^3(ANC) (test code = 3035497620) 5.46 10*3/uL 1.88-7.09 IMM GRAN x10^3 (test code = 6290251373) 0.03 10*3/uL 0.00-0.06 LYMPH x10^3 (test code = 731-0) 2.32 10*3/uL 1.32-3.29 MONO x10^3 (test code = 742-7) 0.55 10*3/uL 0.33-0.92 EOS x10^3 (test code = 711-2) 0.09 10*3/uL 0.03-0.39 BASO x10^3 (test code = 704-7) 0.06 10*3/uL 0.01-0.07 Lab Interpretation (test code = 41852-5) Abnormal [facility] METABOLIC PANEL (NA, K, CL, CO2, GLUCOSE, BUN, CREATININE, CA)2022-05-08 06:37:01* Test Item Value Reference Range Interpretation Comme nts NA (test code = 8934167283) 137 mmol/L 135-145 K (test code = 2845871898) 3.8 mmol/L 3.5-5 CL (test code = 1042786368) 103 mmol/L 98-108 CO2 TOTAL (test code = 2880581538) 24 mmol/L 23-31 AGAP (test code = 3232612020) 2-16 BUN (test code = 9573140988) 13 mg/dL 7-23 GLUCOSE (test code = 3893897052) 90 mg/dL 70-110 CREATININE (test code = 7691302250) 0.69 mg/dL 0.5-1.04 CALCIUM (test code = 7975441851) 8.5 mg/dL 8.6-10.6 L eGFR (test code = 6101939441) mL/min/1.73m2 LYNDSAY (test code = LYNDSAY) Association [...] imaging tests). Lab Interpretation (test code = 20186-7) Abnormal [facility] PasoMAGN[facility]IUM2022-10-20 06:37:01* Test Item Value Reference Range Interpretation Comme nts MAGNESIUM (test code = 1285425753) 2.1 mg/dL 1.7-2.4 Lab Interpretation (test cod e = 39483-3) Normal [facility] PasoPHOSPHORUS2022-10-20 06:37:01* Test Item Value Reference Range Interpretation Comme nts PHOSPHORUS (test code = 9904633791) 4.7 mg/dL 2.5-5 Lab Interpretation (test cod e = 89293-9) Normal [facility] PasoCB WITH [id number] 06:11:54* Test Item Value Reference Range Interpretation Comme nts WBC (test code = 6690-2) See_Comment [Automated Material Mix] The system which generated this result transmitted reference range: 4.30 - 11.10 10*3/?L. The reference range was not used to interpret this result as normal/abnormal. RBC (test code = 789-8) See_Comment [Automated Material Mix] The system which generated this result transmitted [...] 32.4 g/dL 31.6-35.1 RDW-SD (test code = 13815-0) 51.0 fL 39-49.9 H RDW-CV (test code = 788-0) 16.5 % 12-15.5 H PLT (test code = 777-3) See_Comment H [Automated messa ge] The system which generated this result transmitted reference range: 166 - 358 10*3/?L. The reference range was not used to interpret this result as normal/abnormal. MPV (test code = 65876-0) 8.3 fL 9.5-12.9 L NRBC/100 WBC (test code = 5759948187) See_Comment [Automated [employer] ssage] The system which generated this result transmitted reference range: 0.0 - 10.0 /100 WBCs. The reference range was not used to interpret this result as normal/abnormal. NRBC x10^3 (test code = 3601594367) See_Comment [Automated messa ge] The system which generated this result transmitted reference range: 10*3/?L. The reference range was not used to interpret this result as normal/abnormal. GRAN MAT (NEUT) % (test code = 770-8) 64.5 % IMM GRAN % (test code = 9678390784) 0.50 % LYMPH % (test code = 736-9) 27.1 % MONO % (test code = 5905-5) 6.6 % EOS % (test code = 713-8) 0.6 % BASO % (test code = 706-2) 0.7 % GRAN MAT x10^3(ANC) (test code = 6286588823) 5.28 10*3/uL 1.88-7.09 IMM GRAN x10^3 (test code = 8637717315) 0.04 10*3/uL 0-0.06 LYMPH x10^3 (test code = 731-0) 2.22 10*3/uL 1.32-3.29 MONO x10^3 (test code = 742-7) 0.54 10*3/uL 0.33-0.92 EOS x10^3 (test code = 711-2) 0.05 10*3/uL 0.03-0.39 BASO x10^3 (test code = 704-7) 0.06 10*3/uL 0.01-0.07 Lab Interpretation (test code = 30872-0) Abnormal [facility]2022-05-07 01:18:10* Test Item Value Reference Range Interpretation Comme nts POCT GLU (test code = 8730357937) 120 mg/dL 70-110 H Lab Interpretation (test cod e = 38516-3) Abnormal [facility] PasoType and Screen - ONCE Rkwqvze0640-31-08 05:46:35* Test Item Value Reference Range Interpretation Comme [facility] ABO & RH (test code = 20) O POSITIVE Performed at [facility] Laboratory [facility] Blood [address] [address]Sfsb Free: [phone] No. [id number] IAT (test code = 1185) Negative Performed at [facility] Laboratory [facility] Blood [place] [id number] Free: [phone] No. [id number] [facility] PasoBAS[facility] METABOLIC PANEL (NA, K, CL, CO2, GLUCOSE, BUN, CREATININE, CA)2022-05-05 08:22:57* Test Item Value Reference Range Interpretation Comme [facility] NA (test code = 0667022665) 136 mmol/L 135-145 K (test code = 2349645654) 4.9 mmol/L 3.5-5 CL (test code = 4753654272) 108 mmol/L 98-108 CO2 TOTAL (test code = 7457206214) 22 mmol/L 23-31 L AGAP (test code = 5735765088) 2-16 BUN (test code = 5486258844) 12 mg/dL 7-23 GLUCOSE (test code = 2594371362) 155 mg/dL 70-110 H CREATININE (test code = 3690160202) 0.63 mg/dL 0.5-1.04 CALCIUM (test code = 8882137339) 8.4 mg/dL 8.6-10.6 L eGFR (test code = 9454957488) mL/min/1.73m2 LYNDSAY (test code = LYNDSAY) Association [...] imaging tests). Lab Interpretation (test code = 71104-5) Abnormal [facility] PasoPROTHROMBIN TIME / [id number] 08:22:37* Test Item Value Reference Range Interpretation [facility] PROTIME PATIENT (test code = 5964-2) See_Comment [Automated Material Mix] The system which generated this result transmitted reference range: 10.1 - 12.6 Seconds. The reference range was not used to interpret this result as normal/abnormal. INR (test code = 6301-6) Normal INR <1.1; Warfarin Therapeutic range 2.0 to 3.0 or 2.5 to 3.5, depending upon the indications. Lab Interpretation (test code = 98907-2) Normal [facility] PasoaPTT2022-10-17 08:22:37* Test Item Value Reference Range Interpretation Comme [facility] APTT Patient (test code = 3173-2) See_Comment [Automated messa ge] The system which generated this result transmitted reference range: 26 - 36 Seconds. The reference range was not used to interpret this result as normal/abnormal. Lab Interpretation (test code = 11586-8) Normal [facility] PasoFIBRINOGEN2022-10-17 08:22:37* Test Item Value Reference Range Interpretation Comme nts Fibrinogen (test code = 1482319190) 294 mg/dL 167-453 Lab Interpretation (test cod e = 57743-8) Normal [facility] WITH [id number] 08:15:01* Test Item Value Reference Range Interpretation [...] g/dL 31.6-35.1 L RDW-SD (test code = 42361-6) 52.9 fL 39-49.9 H RDW-CV (test code = 788-0) 16.8 % 12-15.5 H PLT (test code = 777-3) See_Comment H [Automated messa ge] The system which generated this result transmitted reference range: 166 - 358 10*3/?L. The reference range was not used to interpret this result as normal/abnormal. MPV (test code = 81533-5) 8.3 fL 9.5-12.9 L NRBC/100 WBC (test code = 0864870362) See_Comment [Automated me ssage] The system which generated this result transmitted reference range: 0.0 - 10.0 /100 WBCs. The reference range was not used to interpret this result as normal/abnormal. NRBC x10^3 (test code = 0151851967) See_Comment [Automated messa ge] The system which generated this result transmitted reference range: 10*3/?L. The reference range was not used to interpret this result as normal/abnormal. GRAN MAT (NEUT) % (test code = 770-8) 86.4 % IMM GRAN % (test code = 6303513070) 0.40 % LYMPH % (test code = 736-9) 11.7 % MONO % (test code = 5905-5) 1.1 % EOS % (test code = 713-8) 0.0 % BASO % (test code = 706-2) 0.4 % GRAN MAT x10^3(ANC) (test code = 6114984588) 6.36 10*3/uL 1.88-7.09 IMM GRAN x10^3 (test code = 0822033460) 0.03 10*3/uL 0-0.06 LYMPH x10^3 (test code = 731-0) 0.86 10*3/uL 1.32-3.29 L MONO x10^3 (test code = 742-7) 0.08 10*3/uL 0.33-0.92 L EOS x10^3 (test code = 711-2) 0.03-0.39 L BASO x10^3 (test code = 704-7) 0.03 10*3/uL 0.01-0.07 Lab Interpretation (test code = 31872-1) Abnormal [facility] PasoVITAMIN D, [id number] 20:14:03* Test Item Value Reference Range Interpretation Comme nts VIT D 25OH (test code = 48409-7) 22 ng/mL 25-80 L LYNDSAY (test code = LYNDSAY) Deficiency: <20 ng/mLInsufficiency: 20-24 ng/mLOptimal: 25-80 ng/mL Lab Interpretation (test code = 32455-1) Abnormal [facility] METABOLIC PANEL (NA, K, CL, CO2, GLUCOSE, BUN, CREATININE, CA)2022-04-15 11:27:57* Test Item Value Reference Range Interpretation Comme nts NA (test code = 6577374896) 138 mmol/L 135-145 K (test code = 3541274882) 3.9 mmol/L 3.5-5 CL (test code = 1021123680) 106 mmol/L 98-108 CO2 TOTAL (test code = 3563637396) 23 mmol/L 23-31 AGAP (test code = 2343213751) 2-16 BUN (test code = 1895938247) 10 mg/dL 7-23 GLUCOSE (test code = 0599365519) 91 mg/dL 70-110 CREATININE (test code = 3066034236) 0.65 mg/dL 0.5-1.04 CALCIUM (test code = 3692530441) 8.1 mg/dL 8.6-10.6 L eGFR (test code = 5261915243) mL/min/1.73m2 LYNDSAY (test code = LYNDSAY) Association [...] imaging tests). Lab Interpretation (test code = 12157-9) Abnormal [facility] Protocol - Transthoracic echo (TTE) 2022-04-14 22:07:33* Test Item Value Reference Range Interpretation Comme nts Height (test code = 1931338266) in Weight (test code = 9076202922) lbs Systolic BP (test code = 4542926211) mmHg Diastolic BP (test code = 8496460979) mmHg Heart Rate (test code = 7524613284) bpm BSA (test code = 9774956533) 1.94 m2 TASV (test code = 0479006225) 15.5 cm/s LVIDD (test code = 7951795164) 6.00 cm Left Ventricular End Diastolic Volume by Teichholz Method (test code = 6038891) 183.0 mL IVS (test code = 3555444510) 1.09 cm Interventricular Septum Diastolic Thickness by 2D (test code = 6779484) 1.09 cm LVPWD (test code = 5345390622) 0.94 cm PW (test code = 7007445411) 0.94 cm 0.6-1.1 EF(Teich) (test code = 6787842070) 40.30 % LVIDS (test code = 8852629343) 4.80 cm Left Ventricular End Systolic Volume by Teichholz Method (test code = 8151852) 109.2 mL FS (test code = 3694322820) 20 % EF - 2D (test code = 95006350) 40.30 % LVOT diameter (test code = 6701884291) 2.05 cm LVOT area (test code = 4693403702) 3.30 cm2 Ao root diam (test code = 7676174161) 3.10 cm Aortic root (test code = 1911809313) 3.1 cm Ao root annulus (test code = 7505014728) 3.1 cm LA size (test code = 6905056992) 4.2 cm LAV(MOD-sp4) (test code = 5875720679) 64.90 mL MV Peak A Evette (test code = 6916578830) 115.7 cm/s E wave decelartion time (test code = 6895578925) 0.15 s MV Peak E Evetet (test code = 8718572508) 106.2 cm/s E/A ratio (test code = 1065924558) ratio LVOT stroke volume (test code = 6851965623) 48.30 cm3 LVOT peak evette (test code = 2288639362) 78.4 cm/s LVOT mn grad (test code = 9285537778) mmHg AV LVOT peak gradient (test code = 8816508754) mmHg LVOT peak VTI (test code = 1708480354) 14.7 cm LV V1 mean (test code = 9904188827) 51.40 cm/s Ao peak evette (test code = 1938234122) 154.7 cm/s AV area peak evette (test code = 0331536096) 1.7 cm2 Ao max PG (test code = 5207706226) 9.60 mm[Hg] AV peak gradient (test code = 4622641023) mmHg AV regurgitation pressure 1/2 time (test code = 2609250256) 257.3 ms AI dec slope (test code = 7713874845) 498.10 cm/s2 AI max evette (test code = 8407103316) 437.60 cm/s AI max PG (test code = 8298973104) 77.80 mm[Hg] Tapse (test code = 9651794289) 2.19 cm LA Volume Index (BP) (test code = 7710682264) 32.0 mL/m2 LA volume (BP) (test code = 0265810989) 62.1 mL LAV(MOD-sp2) (test code = 0743089930) 52.70 mL A4C EF (test code = 0323216399) 44.80 % EF(sp4-el) (test code = 9305732102) 45.20 % SV(MOD-sp4) (test code = 9967388962) 71.20 mL SV(sp4-el) (test code = 3159032844) 73.90 mL LV Diastolic Volume (BP) (test code = 7133175710) 146.3 mL A2C EF (test code = 8172326554) 52.00 % EF(MOD-bp) (test code = 3869494226) 46.70 % EF(sp2-el) (test code = 7170411819) 52.40 % LV Systolic Volume (BP) (test code = 5947735527) 77.9 mL SV(MOD-bp) (test code = 3657763776) 68.40 mL SV(MOD-sp2) (test code = 2083962424) 69.20 mL EF (test code = 1950158061) Left Ventricular Stroke Volume by 2-D Biplane-MOD (test code = 5555864) 68.4 mL Radiology Study observation (narrative) (test code = 22326-1) LYNDSAY (test code = LYNDSAY) ?Left?Ventricle: Left [...] agent used and saline contrast was performed. [facility] PasoKEPPRA (LEVETIRACETAM)2022-04-14 16:48:36* Test Item Value Reference Range Interpretation Comme nts KEPPRA (test code = 1381672569) 12-46 L LYNDSAY (test code = LYNDSAY) Therapeutic range: 12-46 ?g/mL ? ?Toxic: Not well established.Test developed and characteristics determined by [facility] Laboratory Services. Lab Interpretation (test code = 12926-6) Abnormal [facility] Met[facility] (Na, K, Cl, CO2, Glucose, BUN, Creatinine, Ca)2022-04-14 10:50:11* Test Item Value Reference Range Interpretation Comme [facility] NA (test code = 6513619905) 136 mmol/L 135-145 K (test code = 7054272426) 3.8 mmol/L 3.5-5 CL (test code = 7781976433) 105 mmol/L 98-108 CO2 TOTAL (test code = 8333192951) 25 mmol/L 23-31 AGAP (test code = 9813110466) 2-16 BUN (test code = 3198819571) 9 mg/dL 7-23 GLUCOSE (test code = 6038384914) 101 mg/dL 70-110 CREATININE (test code = 1894686731) 0.66 mg/dL 0.5-1.04 CALCIUM (test code = 7737485596) 8.1 mg/dL 8.6-10.6 L eGFR (test code = 9689643672) mL/min/1.73m2 LYNDSAY (test code = LYNDSAY) Association [...] imaging tests). Lab Interpretation (test code = 30003-8) Abnormal [facility] PasoMagensium, [id number] 10:50:11* Test Item Value Reference Range Interpretation Comme nts MAGNESIUM (test code = 0771744138) 1.9 mg/dL 1.7-2.4 Lab Interpretation (test cod e = 08026-5) Normal [facility] PasoThyroid Stimulating Tdqftdd6265-37-12 22:21:44 * Test Item Value Reference Range Interpretation Comme nts TSH (test code = 1907497054) See_Comment Biotin has been reported to cause a negative bias, interpret results relative to patient's use of biotin. [Automated message] The system which generated this result transmitted reference range: 0.45 - 4.70 mIU/L. The reference range was not used to interpret this result as normal/abnormal. Lab Interpretation (test code = 25730-7) Normal [facility] PasoGLYCOSYLATED HEMOGLOBIN (A1C)2022-04-13 21:53:43* Test Item Value Reference Range Interpretation Comme nts HGB A1C (test code = 4548-4) 5.8 % 4-5.7 H LYNDSAY (test code = LYNDSAY) Reference RangesNormal: <5.7%Prediabetes: 5.7 - 6.4%Diabetes: > 6.5% Lab Interpretation (test code = 18084-2) Abnormal [facility] PasoFASTING LIPID PANEL (86660)(TOTAL CHOLESTEROL, TRIGLYCERIDES, HDL)2022-04-13 21:34:53* Test Item Value Reference Range Interpretation Comme nts CHOL (test code = 9767633074) 201 mg/dL 120-200 H HDL (test code = 9607270502) 56 mg/dL See_Comment [Automated [employer]] The system which generated this result transmitted reference range: >=50. The reference range was not used to interpret this result as normal/abnormal. HDLC RATIO (test code = 6878881205) See_Comment [Automated [employer]] The system which generated this result transmitted reference range: <=4.5. The reference range was not used to interpret this result as normal/abnormal. TRIG (test code = 1569693847) 355 mg/dL 30-170 H LDL CHOL (test code = 48600-1) 74 mg/dL See_Comment [Automated [employer]] The system which generated this result transmitted reference range: <=160. The reference range was not used to interpret this result as normal/abnormal. VLDL (test code = 9772370110) 71 mg/dL 5-60 H Lab Interpretation (test code = 22907-0) Abnormal [facility] Code [id number] 18:46:27* Test Item Value Reference Range Interpretation Comments TROPONIN I (test code = 2088570268) 0.013 ng/mL See_Comment [Automated message] The system [...] of biotin. Lab Interpretation (test code = 48564-4) [facility] (NA, K, CL, CO2, Glucose, BUN, Creatinine, CA) - Code [id number] 18:35:07* Test Item Value Reference Range Interpretation Comme nts NA (test code = 8104386354) 136 mmol/L 135-145 K (test code = 8500769969) 4.3 mmol/L 3.5-5 CL (test code = 1293267135) 105 mmol/L 98-108 CO2 TOTAL (test code = 0589723778) 27 mmol/L 23-31 AGAP (test code = 4182870788) 2-16 BUN (test code = 9244217849) 8 mg/dL 7-23 GLUCOSE (test code = 0569716087) 130 mg/dL 70-110 H CREATININE (test code = 0199527529) 0.75 mg/dL 0.5-1.04 CALCIUM (test code = 4075454184) 8.5 mg/dL 8.6-10.6 L eGFR (test code = 3792045677) mL/min/1.73m2 LYNDSAY (test code = LYNDSAY) Association [...] imaging tests). Lab Interpretation (test code = 64442-0) [facility] Code [id number] 18:32:46* Test Item Value Reference Range Interpretation Comme [facility] APTT Patient (test code = 3173-2) See_Comment [Automated message] The system which generated this result transmitted reference range: 23 - 38 Seconds. The reference range was not used to interpret this result as normal/abnormal. LYNDSAY (test code = LYNDSAY) The [facility] patient population mean normal value for aPTT is 30 seconds. Lab Interpretation (test code = 86327-0) Normal [facility]th[facility] Time / INR - Code [id number] 18:30:45* Test Item Value Reference Range Interpretation Comme [facility] PROTIME PATIENT (test code = [...] the indications. Lab Interpretation (test code = 57460-7) Normal [facility] without Diff - Code [id number] 18:23:07* Test Item Value Reference Range Interpretation Comme [facility] WBC (test code = 6690-2) [...] result as normal/abnormal. MPV (test code = 75624-8) 8.1 fL 9.5-12.9 L RDW-CV (test code = 788-0) 16.1 % 12-15.5 H RDW-SD (test code = 54714-8) 49.2 fL 39-49.9 NRBC x10^3 (test code = 0140820714) See_Comment [Automated Material Mix] The system which generated this result transmitted reference range: 10*3/?L. The reference range was not used to interpret this result as normal/abnormal. NRBC/100 WBC (test code = 8874356595) See_Comment [Automated Material Mix] The system which generated this result transmitted reference range: 0.0 - 10.0 /100 WBCs. The reference range was not used to interpret this result as normal/abnormal. IPF % (test code = 6958017969) Lab Interpretation (test code = 35634-7) Abnormal [facility] [id number] 21:06:40* Test Item Value Reference Range Interpretation Comments TROPONIN I (test code = 8324755868) 0.005 ng/mL See_Comment [Automated message] The system [...] of biotin. Lab Interpretation (test code = 95599-6) Normal [facility]. METABOLIC PANEL (19701)2021-11-23 20:55:42* Test Item Value Reference Range Interpretation Comme nts NA (test code = 5489638262) 137 mmol/L 135-145 K (test code = 2252322482) 4.3 mmol/L 3.5-5.0 CL (test code = 5188891929) 104 mmol/L 98-108 CO2 TOTAL (test code = 5685653698) 22 mmol/L 23-31 L AGAP (test code = 0908327995) 2-16 BUN (test code = 6090427070) 15 mg/dL 7-23 GLUCOSE (test code = 7802655445) 114 mg/dL 70-110 H CREATININE (test code = 0801118549) 0.68 mg/dL 0.50-1.04 TOTAL BILI (test code = 0879761679) 0.5 mg/dL 0.1-1.1 CALCIUM (test code = 1060859687) 9.1 mg/dL 8.6-10.6 T PROTEIN (test code = 8932224728) 7.3 g/dL 6.3-8.2 ALBUMIN (test code = 3801755115) 4.4 g/dL 3.5-5.0 ALK PHOS (test code = 2775310121) 243 U/L 34-122 H ALTv (test code = 1742-6) 24 U/L 5-35 AST(SGOT) (test code = 3783379665) 30 U/L 13-40 eGFR (test code = 9042409451) mL/min/1.73m2 LYNDSAY (test code = LYNDSAY) Association [...] imaging tests). Lab Interpretation (test code = 07444-4) [facility]normal [facility]oLIPASE2022-05-07 20:55:22* Test Item Value Reference Range Interpretation Comme nts LIPASE (test code = 5941485229) 96 U/L 0-220 Lab Interpretation (test cod e = 79610-7) Normal [facility] PasoPOCT [id number] 20:46:00* Test Item Value Reference Range Interpretation Comme nts POCT PREG (test code = 1605) negative On board controls acceptable with C Line (test code = 3574) present POCT PREG LOT # (test code = 3575) [id number] POCT PREG TEST DATE ( test code = 3576) 04/18/2023 Lab Interpretation (test cod e = 88963-8) Normal [facility] WITH [id number] 20:40:38* Test Item Value Reference Range Interpretation Comme nts WBC (test code = 6690-2) See_Comment [Automated [employer]] The system which generated this result transmitted reference range: 4.30 - 11.10 10*3/?L. The reference range was not used to interpret this result as normal/abnormal. RBC (test code = 789-8) See_Comment [Automated [employer]] The system which generated this result transmitted [...] 31.8 g/dL 31.6-35.1 RDW-SD (test code = 32745-3) 53.7 fL 39.0-49.9 H RDW-CV (test code = 788-0) 17.2 % 12.0-15.5 H PLT (test code = 777-3) See_Comment H [Automated messa ge] The system which generated this result transmitted reference range: 166 - 358 10*3/?L. The reference range was not used to interpret this result as normal/abnormal. MPV (test code = 30792-8) 8.5 fL 9.5-12.9 L NRBC/100 WBC (test code = 1883739015) See_Comment [Automated [employer] ssage] The system which generated this result transmitted reference range: 0.0 - 10.0 /100 WBCs. The reference range was not used to interpret this result as normal/abnormal. NRBC x10^3 (test code = 3466614974) <0.01 See_Comment [Automated messa ge] The system which generated this result transmitted reference range: 10*3/?L. The reference range was not used to interpret this result as normal/abnormal. GRAN MAT (NEUT) % (test code = 770-8) 53.7 % IMM GRAN % (test code = 0828875462) 0.90 % LYMPH % (test code = 736-9) 32.6 % MONO % (test code = 5905-5) 10.1 % EOS % (test code = 713-8) 1.5 % BASO % (test code = 706-2) 1.2 % GRAN MAT x10^3(ANC) (test code = 8016616162) 4.98 10*3/uL 1.88-7.09 IMM GRAN x10^3 (test code = 6597383580) 0.08 10*3/uL 0.00-0.06 H LYMPH x10^3 (test code = 731-0) 3.02 10*3/uL 1.32-3.29 MONO x10^3 (test code = 742-7) 0.94 10*3/uL 0.33-0.92 H EOS x10^3 (test code = 711-2) 0.14 10*3/uL 0.03-0.39 BASO x10^3 (test code = 704-7) 0.11 10*3/uL 0.01-0.07 H Lab Interpretation (test code = 75487-5) Abnormal [facility] GLU[facility]SE (AUTOMATED)2021-11-23 20:17:33* Test Item Value Reference Range Interpretation Comme nts POCT GLU (test code = 3405398872) 111 mg/dL 70-110 H Notified Provide r Lab Interpretation (test code = 50258-3) Abnormal [facility] Paso[facility]AP TEST, THINPREP, [id number] 00:00:00 * Test Item Value Reference Range Interpretation Comme nts SOURCE: (test code = 8001) Endocervical SLIDES: (test code = 8011) 1 LMP: (test code = 8021) 06/03/2021 SPECIMEN ADEQUACY: (test code = 83345) (NOTE) INTERPRETATION: (test code = 27835) ASCUS/EPITH. ABNORMALITY; SEE BELOW EMOTIONAL DISABILITIES TEACHER: (test code = 8101) CHANA Thacker(ASCP)[facility] INTERPRETATION BY: (test code = 8122) Nahid Russell M.D. LOCATION: (test code = 76564) (NOTE) CPT: (test code = 8140) (NOTE) PAP TEST, THINPREP, [id number] 00:00:00* Test Item Value Reference Range Interpretation Comme nts SOURCE: (test code = 8001) Endocervical SLIDES: (test code = 8011) 1 LMP: (test code = 8021) 06/03/2021 SPECIMEN ADEQUACY: (test code = 53567) (NOTE) INTERPRETATION: (test code = 76039) ASCUS/EPITH. ABNORMALITY; SEE BELOW EMOTIONAL DISABILITIES TEACHER: (test code = 8101) CHANA Thacker(ASCP)[facility] PATHOLOGIST INTERPRETATION BY: (test code = 8122) Nahid Russell M.D. LOCATION: (test code = 58012) (NOTE) CPT: (test code = 8140) (NOTE) HPV HIGH RISK WITH GENOTYPE, [id number] 00:00:00* Test Item Value Reference Range Interpretation Comme nts HPV HIGH RISK INTERP (test c ode = 83631) POSITIVE HPV 16 (test code = 30726) POSITIVE HPV 18 (test code = 85557) NEGATIVE HPV, HR, OTHER GENOTYPES (te st code = 60629) POSITIVE HPV HIGH RISK WITH GENOTYPE, [id number] 00:00:00* Test Item Value Reference Range Interpretation Comme nts HPV HIGH RISK INTERP (test c ode = 64713) POSITIVE HPV 16 (test code = 38939) POSITIVE HPV 18 (test code = 66460) NEGATIVE HPV, HR, OTHER GENOTYPES (te st code = 22614) POSITIVE [id number] 03:22:48* Test Item Value Reference Range Interpretation Comme nts APPEARANCE (test code = 4863766169) Hazy Clear A COLOR (test code = 6506244315) Yellow Yellow PH (test code = 4229545007) 4.8-8.0 SP GRAVITY (test code = 9133945269) 1.003-1.030 GLU U QUAL (test code = 4039842087) Normal Normal BLOOD (test code = 3841354795) Negative Negative Interference fro m ascorbic acid may cause false negative results. KETONES (test code = 1095916508) 5 mg/dL Negative A PROTEIN (test code = 2887-8) Negative Negative UROBILIN (test code = 1909516975) 4.0 mg/dL Normal A BILIRUBIN (test code = 4682258797) Negative Negative NITRITE (test code = 1421803701) Negative Negative LEUK GRUPO (test code = 7500530136) Negative Negative RBC/HPF (test code = 0032441142) See_Comment [Automated [employer] ge] The system which generated this result transmitted reference range: 0 - 3 HPF. The reference range was not used to interpret this result as normal/abnormal. WBC/HPF (test code = 0453013075) <1 See_Comment [Automated [employer] ge] The system which generated this result transmitted reference range: 0 - 5 HPF. The reference range was not used to interpret this result as normal/abnormal. BACTERIA (test code = 6851544896) Few Negative A SQ EPITH (test code = 1383398333) HPF Lab Interpretation (test code = 07482-5) [facility]normal [facility] Paso[facility]INALYSIS2021-08-29 03:22:48* Test Item Value Reference Range Interpretation Comme nts APPEARANCE (test code = 8235438513) Hazy Clear A COLOR (test code = 4964783195) Yellow Yellow PH (test code = 7167738292) 4.8-8.0 SP GRAVITY (test code = 3953623885) 1.003-1.030 GLU U QUAL (test code = 1595432704) Normal Normal BLOOD (test code = 3996084781) Negative Negative KETONES (test code = 3051686313) 5 mg/dL Negative A PROTEIN (test code = 2887-8) Negative Negative UROBILIN (test code = 3529638011) 4.0 mg/dL Normal A BILIRUBIN (test code = 8836636397) Negative Negative NITRITE (test code = 3806101558) Negative Negative LEUK GRUPO (test code = 6430212011) Negative Negative RBC/HPF (test code = 2543112878) See_Comment [Automated [employer] ge] The system which generated this result transmitted reference range: 0 - 3 HPF. The reference range was not used to interpret this result as normal/abnormal. WBC/HPF (test code = 4934732575) <1 See_Comment [Automated [employer] ge] The system which generated this result transmitted reference range: 0 - 5 HPF. The reference range was not used to interpret this result as normal/abnormal. BACTERIA (test code = 3171709998) Few Negative A SQ EPITH (test code = 9418710964) HPF Lab Interpretation (test code = 31967-6) [facility]normal [facility] PasoTROPONIN [id number] 02:45:00* Test Item Value Reference Range Interpretation Comments TROPONIN I (test code = 6736977742) 0.002 ng/mL See_Comment [Automated message] The system [...] of biotin. Lab Interpretation (test code = 09547-1) Normal [facility] [id number] 02:45:00* Test Item Value Reference Range Interpretation Comme nts TROPONIN I (test code = 2233462013) 0.002 ng/mL See_Comment [Automated [employer]] The system which generated this result transmitted reference range: <=0.034. The reference range was not used to interpret this result as normal/abnormal. LYNDSAY (test code = LYNDSAY) Lab Interpretation (test code = 71936-7) Normal [facility] Paso[facility]-TERMINAL [id number] 02:41:57* Test Item Value Reference Range Interpretation Comme nts NT-proBNP (test code = 6879995751) 169 pg/mL See_Comment H [Automated message] The system which generated this result transmitted reference range: <=125. The reference range was not used to interpret this result as normal/abnormal. LYNDSAY (test code = LYNDSAY) Biotin has been reported to cause a negative bias, interpret results relative to patient's use of biotin. Lab Interpretation (test code = 95602-2) Abnormal [facility] Paso[facility]-TERMINAL [id number] 02:41:57* Test Item Value Reference Range Interpretation Comme nts NT-proBNP (test code = 1501628404) 169 pg/mL See_Comment H [Automated [employer]] The system which generated this result transmitted reference range: <=125. The reference range was not used to interpret this result as normal/abnormal. LYNDSAY (test code = LYNDSAY) Lab Interpretation (test code = 23972-4) Abnormal [facility]. METABOLIC PANEL (68911)2021-03-17 02:09:13* Test Item Value Reference Range Interpretation Comme nts NA (test code = 5699677923) 137 mmol/L 135-145 K (test code = 0792277772) 4.2 mmol/L 3.5-5.0 CL (test code = 8737061107) 102 mmol/L 98-108 CO2 TOTAL (test code = 8494462026) 25 mmol/L 23-31 AGAP (test code = 3066952940) 2-16 BUN (test code = 0645727735) 18 mg/dL 7-23 GLUCOSE (test code = 0987835700) 144 mg/dL 70-110 H CREATININE (test code = 8552573905) 0.77 mg/dL 0.50-1.04 TOTAL BILI (test code = 5448372066) 0.4 mg/dL 0.1-1.1 CALCIUM (test code = 0518773522) 8.9 mg/dL 8.6-10.6 T PROTEIN (test code = 1718660019) 6.8 g/dL 6.3-8.2 ALBUMIN (test code = 6790579177) 3.9 g/dL 3.5-5.0 ALK PHOS (test code = 8992841015) 84 U/L 34-122 ALTv (test code = 1742-6) 13 U/L 5-35 AST(SGOT) (test code = 8034681988) 17 U/L 13-40 eGFR (test code = 5561148763) mL/min/1.73m2 LYNDSAY (test code = LYNDSAY) Association [...] imaging tests). Lab Interpretation (test code = 91796-2) Abnormal [facility]. METABOLIC PANEL (34140)2021-03-17 02:09:13* Test Item Value Reference Range Interpretation Comme nts NA (test code = 5849081342) 137 mmol/L 135-145 K (test code = 4405462387) 4.2 mmol/L 3.5-5.0 CL (test code = 7997890614) 102 mmol/L 98-108 CO2 TOTAL (test code = 2244345427) 25 mmol/L 23-31 AGAP (test code = 2915957513) 2-16 BUN (test code = 0633753986) 18 mg/dL 7-23 GLUCOSE (test code = 8584120798) 144 mg/dL 70-110 H CREATININE (test code = 3442000096) 0.77 mg/dL 0.50-1.04 TOTAL BILI (test code = 4860908022) 0.4 mg/dL 0.1-1.1 CALCIUM (test code = 7899540650) 8.9 mg/dL 8.6-10.6 T PROTEIN (test code = 0860576994) 6.8 g/dL 6.3-8.2 ALBUMIN (test code = 7253298531) 3.9 g/dL 3.5-5.0 ALK PHOS (test code = 9252048878) 84 U/L 34-122 ALTv (test code = 1742-6) 13 U/L 5-35 AST(SGOT) (test code = 4505231449) 17 U/L 13-40 eGFR (test code = 2411168094) mL/min/1.73m2 LYNDSAY (test code = LYNDSAY) Lab Interpretation (test cod e = 58700-7) Abnormal [facility] WITH [id number] 01:56:33* Test Item Value Reference Range Interpretation [...] g/dL 31.6-35.1 L RDW-SD (test code = 69069-5) 55.5 fL 39.0-49.9 H RDW-CV (test code = 788-0) 18.9 % 12.0-15.5 H PLT (test code = 777-3) See_Comment H [Automated messa ge] The system which generated this result transmitted reference range: 166 - 358 10*3/?L. The reference range was not used to interpret this result as normal/abnormal. MPV (test code = 48762-9) 8.2 fL 9.5-12.9 L NRBC/100 WBC (test code = 2666815111) See_Comment [Automated me ssage] The system which generated this result transmitted reference range: 0.0 - 10.0 /100 WBCs. The reference range was not used to interpret this result as normal/abnormal. NRBC x10^3 (test code = 0010856024) <0.01 See_Comment [Automated messa ge] The system which generated this result transmitted reference range: 10*3/?L. The reference range was not used to interpret this result as normal/abnormal. GRAN MAT (NEUT) % (test code = 770-8) 61.7 % IMM GRAN % (test code = 8266042172) 0.80 % LYMPH % (test code = 736-9) 28.5 % MONO % (test code = 5905-5) 6.3 % EOS % (test code = 713-8) 1.8 % BASO % (test code = 706-2) 0.9 % GRAN MAT x10^3(ANC) (test code = 2850660424) 7.31 10*3/uL 1.88-7.09 H IMM GRAN x10^3 (test code = 2789558724) 0.09 10*3/uL 0.00-0.06 H LYMPH x10^3 (test code = 731-0) 3.38 10*3/uL 1.32-3.29 H MONO x10^3 (test code = 742-7) 0.75 10*3/uL 0.33-0.92 EOS x10^3 (test code = 711-2) 0.21 10*3/uL 0.03-0.39 BASO x10^3 (test code = 704-7) 0.11 10*3/uL 0.01-0.07 H Lab Interpretation (test code = 34983-4) Abnormal [facility] WITH [id number] 01:56:33* Test Item Value Reference Range Interpretation [...] g/dL 31.6-35.1 L RDW-SD (test code = 06193-6) 55.5 fL 39.0-49.9 H RDW-CV (test code = 788-0) 18.9 % 12.0-15.5 H PLT (test code = 777-3) See_Comment H [Automated messa ge] The system which generated this result transmitted reference range: 166 - 358 10*3/?L. The reference range was not used to interpret this result as normal/abnormal. MPV (test code = 00059-3) 8.2 fL 9.5-12.9 L NRBC/100 WBC (test code = 8788526071) See_Comment [Automated [employer] ssage] The system which generated this result transmitted reference range: 0.0 - 10.0 /100 WBCs. The reference range was not used to interpret this result as normal/abnormal. NRBC x10^3 (test code = 7577166495) <0.01 See_Comment [Automated messa ge] The system which generated this result transmitted reference range: 10*3/?L. The reference range was not used to interpret this result as normal/abnormal. GRAN MAT (NEUT) % (test code = 770-8) 61.7 % IMM GRAN % (test code = 4167633344) 0.80 % LYMPH % (test code = 736-9) 28.5 % MONO % (test code = 5905-5) 6.3 % EOS % (test code = 713-8) 1.8 % BASO % (test code = 706-2) 0.9 % GRAN MAT x10^3(ANC) (test code = 3713137133) 7.31 10*3/uL 1.88-7.09 H IMM GRAN x10^3 (test code = 3845872271) 0.09 10*3/uL 0.00-0.06 H LYMPH x10^3 (test code = 731-0) 3.38 10*3/uL 1.32-3.29 H MONO x10^3 (test code = 742-7) 0.75 10*3/uL 0.33-0.92 EOS x10^3 (test code = 711-2) 0.21 10*3/uL 0.03-0.39 BASO x10^3 (test code = 704-7) 0.11 10*3/uL 0.01-0.07 H Lab Interpretation (test code = 94485-3) Abnormal [facility]-19 (ID NOW RAPID TESTING)2021-03-17 01:38:12* Test Item Value Reference Range Interpretation Comme nts SARS-CoV-2 Rapid ID NOW (test code = 50587-2) Not Detected Not Detected LYNDSAY (test code = LYNDSAY) ID NOW COVID-19 As say is an isothermal nucleic acid amplification test intended for the qualitative detection of nucleic acid from SARS-CoV-2 viral RNA in nasopharyngeal (WEIGHER BULKER) specimens. It is used under Emergency Use [...] clinically indicated. Lab Interpretation (test code = 62690-6) Normal [facility]19 (ID NOW RAPID TESTING)2021-03-17 01:38:12* Test Item Value Reference Range Interpretation Comme nts SARS-CoV-2 Rapid ID NOW (raisa t code = 82828-2) Not Detected Not Detected LYNDSAY (test code = LYNDSAY) Lab Interpretation (test cod e = 41554-1) Normal [facility]19 (ID NOW RAPID TESTING)2021-02-19 17:42:45* Test Item Value Reference Range Interpretation Comme nts SARS-CoV-2 Rapid ID NOW (test code = 25902-2) Not Detected Not Detected LYNDSAY (test code = LYNDSAY) ID NOW COVID-19 As say is an isothermal nucleic acid amplification test intended for the qualitative detection of nucleic acid from SARS-CoV-2 viral RNA in nasopharyngeal (WEIGHER BULKER) specimens. It is used under Emergency Use [...] clinically indicated. Lab Interpretation (test code = 69777-5) [facility] W [id number] 17:24:55Thickening of the gastric antrum and duodenal bulb could be fromunderdistention, the differential would include sequela of peptic ulcerdisease. No findings of ulcer perforation. Otherwise, no acute intra- abdominal or pelvic abnormality. Stable thickening and nodularity of the left adrenal gland. RL: 8722 Patient name: HEATHER TURNERDOB: 1970 51 years EXAMINATION: CT ABDOMEN PELVIS W CONTRAST Ordering Physician: ESTEFANIA MONROY CLINICAL HISTORY:Abdominal pain, acute, nonlocalized COMPARISON:11/21/2015 [...] EXAMINATION: CT ABDOMEN PELVIS W CONTRASTOrdering Physician: ESTEFANIA MONROY CLINICAL HISTORY:Abdominal pain, acute, nonlocalized COMPARISON:11/21/2015TECHNIQUE:Helical [...] nodularity of the left adrenal gland.RL: 8722 [facility] 17:03:40* Test Item Value Reference Range Interpretation Comme nts APPEARANCE (test code = 2983680785) Hazy Clear A COLOR (test code = 5756092966) Mabel Yellow A PH (test code = 5975190884) 4.8-8.0 SP GRAVITY (test code = 3755239700) 1.003-1.030 H GLU U QUAL (test code = 9071216573) Normal Normal BLOOD (test code = 7225893540) Negative Negative KETONES (test code = 2278550145) 5 mg/dL Negative A PROTEIN (test code = 2887-8) 30 mg/dL Negative A UROBILIN (test code = 0904053142) 4.0 mg/dL Normal A BILIRUBIN (test code = 6123166272) 4 mg/dL Negative A NITRITE (test code = 1010456538) Negative Negative LEUK GRUPO (test code = 7367668322) Negative Negative RBC/HPF (test code = 8377533550) See_Comment H [Automated messa ge] The system which generated this result transmitted reference range: 0 - 3 HPF. The reference range was not used to interpret this result as normal/abnormal. WBC/HPF (test code = 7814584753) See_Comment H [Automated [employer] ge] The system which generated this result transmitted reference range: 0 - 5 HPF. The reference range was not used to interpret this result as normal/abnormal. BACTERIA (test code = 1826782919) Few Negative A MUCOUS (test code = 3936383852) Moderate Negative LPF A SQ EPITH (test code = 4474891245) HPF CA OXALATE (test code = 0645754039) See_Comment H [Automated messa ge] The system which generated this result transmitted reference range: <=1 HPF. The reference range was not used to interpret this result as normal/abnormal. Ictotest (test code = 4988371487) Negative Lab Interpretation (test code = 38449-9) Abnormal [facility] Paso[facility] Metabolic Rvnyy5326-17-76 16:34:55* Test Item Value Reference Range Interpretation Comme nts NA (test code = 6312207031) 139 mmol/L 135-145 K (test code = 5181859304) 4.3 mmol/L 3.5-5.0 CL (test code = 2593524892) 105 mmol/L 98-108 CO2 TOTAL (test code = 4401088026) 26 mmol/L 23-31 AGAP (test code = 4820942638) 2-16 BUN (test code = 6285391080) 11 mg/dL 7-23 GLUCOSE (test code = 9391533352) 95 mg/dL 70-110 CREATININE (test code = 5424504648) 0.70 mg/dL 0.50-1.04 TOTAL BILI (test code = 7238187139) 0.6 mg/dL 0.1-1.1 CALCIUM (test code = 4045058291) 8.9 mg/dL 8.6-10.6 T PROTEIN (test code = 5488950156) 7.7 g/dL 6.3-8.2 ALBUMIN (test code = 9271345323) 4.1 g/dL 3.5-5.0 ALK PHOS (test code = 1354696981) 79 U/L 34-122 ALTv (test code = 1742-6) 10 U/L 5-35 AST(SGOT) (test code = 4629991912) 22 U/L 13-40 eGFR (test code = 0771560337) mL/min/1.73m2 LYNDSAY (test code = LYNDSAY) Association [...] or urine or abnormalities in imaging tests). [facility] PasoLip[facility], Ktaix2342-35-96 16:34:14* Test Item Value Reference Range Interpretation Comme nts LIPASE (test code = 4334490185) 45 U/L 0-220 Lab Interpretation (test cod e = 48764-0) Normal [facility] Paso[facility] with Olvlozsbgiky7568-97-62 16:21:12* Test Item Value Reference Range Interpretation Comme nts WBC (test code = 6690-2) See_Comment [Automated [employer]] The system which generated this result transmitted reference range: 4.30 - 11.10 10*3/?L. The reference range was not used to interpret this result as normal/abnormal. RBC (test code = 789-8) See_Comment [[employer]] The system which generated this result transmitted [...] g/dL 31.6-35.1 L RDW-SD (test code = 04643-9) 54.4 fL 39.0-49.9 H RDW-CV (test code = 788-0) 18.3 % 12.0-15.5 H PLT (test code = 777-3) See_Comment H [Automated messa ge] The system which generated this result transmitted reference range: 166 - 358 10*3/?L. The reference range was not used to interpret this result as normal/abnormal. MPV (test code = 18666-3) 8.5 fL 9.5-12.9 L NRBC/100 WBC (test code = 2715088434) See_Comment [Automated [employer] ssage] The system which generated this result transmitted reference range: 0.0 - 10.0 /100 WBCs. The reference range was not used to interpret this result as normal/abnormal. NRBC x10^3 (test code = 7417193166) <0.01 See_Comment [Automated messa ge] The system which generated this result transmitted reference range: 10*3/?L. The reference range was not used to interpret this result as normal/abnormal. GRAN MAT (NEUT) % (test code = 770-8) 78.3 % IMM GRAN % (test code = 1535332028) 0.40 % LYMPH % (test code = 736-9) 15.4 % MONO % (test code = 5905-5) 4.8 % EOS % (test code = 713-8) 0.1 % BASO % (test code = 706-2) 1.0 % GRAN MAT x10^3(ANC) (test code = 8127433229) 7.15 10*3/uL 1.88-7.09 H IMM GRAN x10^3 (test code = 0872085505) 0.04 10*3/uL 0.00-0.06 LYMPH x10^3 (test code = 731-0) 1.41 10*3/uL 1.32-3.29 MONO x10^3 (test code = 742-7) 0.44 10*3/uL 0.33-0.92 EOS x10^3 (test code = 711-2) <0.03 0.03-0.39 L BASO x10^3 (test code = 704-7) 0.09 10*3/uL 0.01-0.07 H Lab Interpretation (test code = 55334-8) Abnormal [facility] Consult Notes Date/Time Note Provider Source 2024-01-10 12:39:30 Associated Order(s): CONSULT CARDIOLOGY [facility] Cardiology Consult PCP: PATIENT DOES NOT HAVE A PCP Date of Service: 01/10/2024 CHIEF COMPLAINT/reason for consult: Chest pain HISTORY OF PRESENT ILLNESS This is a 53 years old female with past medical history of smoking, COPD, hypertension, obesity, nonobstructive coronary artery disease, systolic and diastolic heart failure, left ventricular thrombosis and pulm hypertension. She presented to [facility] emergency room with chest pain. She has been having a lot of family stress. Yesterday morning she began to have precordial chest squeezing sensation, associated Weihs abdominal discomfort, nausea and left arm pain. The chest pain is worse with deep breaths. It has been constant for over 24 hours. No dyspnea. No leg edema. Chest x-ray was clear. Troponin was negative. PAST MEDICAL HISTORY Past Medical History: Diagnosis Date Anxiety Extreme Bipolar disorder Breast pain 09/18/2015 Cauda equina compression 11/21/2023 diagnosed 08/2023 Congestive heart failure 2021 COPD (chronic obstructive pulmonary disease) Diverticulitis Epilepsy Hypertension [place] (my[place] infarction) 07/20/2007 Slipped disc Stomach cancer Substance abuse Marijuana daily-for anxiety Past Surgical History: Procedure Laterality Date ANTERIOR CERVICAL FUSION CHOLECYSTECTOMY HAND/FINGER SURGERY UNLISTED Bilateral 3 L hand, 3 R hand METATARSAL OSTEOTOMY Right 08/14/2015 Surgeon: Luis Jones Jr., ESTHER; [place] [facility] [place]IL[place]OMY Family History Problem Relation Age of Onset Breast Cancer Mother 50 treated and alive, HTN Breast Cancer Maternal Aunt 40 Maternal great aunt Breast Cancer Maternal Grandmother 60 Breast Cancer Other 30 Maternal cousin Breast Cancer Other 30 Maternal cousin ALLERGIES Allergies Allergen Reactions Green Tea Other - See comments Seizures Diclofenac Hypertension Keppra [Levetiracetam] Other - See comments Makes seizures worse MEDICATIONS No current facility-administered medications on file prior to encounter. Current Outpatient Medications on File Prior to Encounter Medication Sig Dispense Refill metoprolol succinate XL 50 mg 24 hr tablet Take 1 tablet by mouth in the morning. empagliflozin (JARDIANCE) 10 mg tablet Take 1 tablet by mouth in the morning for 30 days. 30 tablet 0 furosemide 40 mg tablet Take 1.5 tablets by mouth every morning and evening for 60 days. (Patient taking differently: Take 1 tablet by mouth every morning and evening.) 60 tablet 2 metFORMIN 500 mg tablet Take 1 tablet by mouth in the morning for 30 days. 30 tablet 0 spironolactone 25 mg tablet Take 1 tablet by mouth in the morning for 30 days. (Patient taking differently: Take 1 tablet by mouth in the morning. 2 tablets by mouth in the morning) 30 tablet 0 lisinopriL 2.5 mg tablet Take 1 tablet by mouth in the morning. (Patient taking differently: Take 2 tablets by mouth in the morning.) 30 tablet 0 metoprolol succinate XL 25 mg 24 hr tablet Take 0.5 tablets by mouth in the morning. 30 tablet 1 apixaban 5 mg tablet Take 2 tablets by mouth 2 (two) times daily for 3 days, THEN 1 tablet 2 (two) times daily for 90 days. Indications: history of deep vein thrombosis 192 tablet 0 digoxin 125 mcg tablet Take 1 tablet by mouth in the morning. 30 tablet 2 divalproex ER 500 mg 24 hr tablet Take 2 tablets by mouth every 12 (twelve) hours. 120 tablet 2 DULoxetine 30 mg capsule Take 1 capsule by mouth in the morning. 30 capsule 2 gabapentin 100 mg capsule Take 1 capsule by mouth in the morning and 1 capsule at noon and 1 capsule in the evening. 90 capsule 2 tamsulosin 0.4 mg 24 hr capsule Take 1 capsule by mouth in the morning for 90 days. 30 capsule 2 mirtazapine 15 mg tablet Take 1 tablet by mouth at bedtime. Lacosamide (VIMPAT) 100 mg tablet Take 1 tablet by mouth in the morning and 1 tablet in the evening. 60 tablet 0 cyclobenzaprine 5 mg tablet Take 1 tablet by mouth in the morning and 1 tablet at noon and 1 tablet in the evening. 21 tablet 0 aspirin 81 mg chewable tablet Take 1 tablet by mouth in the morning. 30 tablet 5 atorvastatin 40 mg tablet Take 1 tablet by mouth at bedtime. (Patient taking differently: Take 0.5 tablets by mouth at bedtime.) 30 tablet 5 albuterol 2.5 mg /3 mL (0.083 %) nebulizer solution Inhale 3 mL every 4 (four) hours as needed for Wheezing or Shortness of Breath. 1 Each 0 dicyclomine 20 mg tablet Take 1 tablet by mouth 4 (four) times daily as needed for Abdominal pain. 20 tablet 0 ondansetron 4 mg tablet Take 1 tablet by mouth every 8 (eight) hours as needed for Nausea and Vomiting (N/V). loratadine (CLARITIN LIQUI-GEL) 10 mg capsule Take by mouth daily. MULTIVITAMIN ORAL Take 1 Tab by mouth daily. omega-3 fatty acids-vitamin E (FISH OIL) 1,000 mg capsule Take 1 g by mouth daily. SOCIAL HISTORY Social History Socioeconomic History Marital status: Spouse name: Mony Number of children: 0 Highest education level: GED or equivalent Tobacco Use Smoking status: Every Day Current packs/day: 1.00 Average packs/day: 1 pack/day for 30.0 years (30.0 ttl pk-yrs) Types: Cigarettes, Cigars Passive exposure: Current Smokeless tobacco: Never Substance and Sexual Activity Alcohol use: No Alcohol/week: 0.0 standard drinks of alcohol Drug use: Yes Types: Marijuana Comment: smokes marijuana daily Sexual activity: Yes Partners: Male Social Determinants of Health Financial Resource Strain: Low Risk (12/03/2023) Overall Financial Resource Strain (CARDIA) Difficulty of Paying Living Expenses: Not very hard Food Insecurity: Food Insecurity Present (12/03/2023) Hunger Vital Sign Worried About Running Out of Food in the Last Year: Sometimes true Ran Out of Food in the Last Year: Sometimes true Transportation Needs: No Transportation Needs (12/03/2023) PRAPARE - Transportation Lack of Transportation (Medical): No Lack of Transportation (Non-Medical): No Recent Concern: Transportation Needs - Unmet Transportation Needs (11/26/2023) PRAPARE - Transportation Lack of Transportation (Medical): Yes Lack of Transportation (Non-Medical): Yes Physical Activity: Inactive (12/03/2023) Exercise Vital Sign Days of Exercise per Week: 0 days Minutes of Exercise per Session: 0 min Social Connections: Unknown (12/03/2023) Social Connection and Isolation Panel [NHANES] Frequency of Communication with Friends and Family: Twice a week Marital Status: Housing Stability: High Risk (12/03/2023) Housing Stability Vital Sign Unable to Pay for Housing in the Last Year: Yes Unstable Housing in the Last Year: Yes REVIEW OF SYSTEMS At least 10 systems reviewed, negative except as mentioned in HPI PHYSICAL EXAMINATION Vitals: 01/10/24 0600 01/10/24 0718 01/10/24 0900 01/10/24 1100 BP: 90/66 104/76 121/82 Pulse: 69 80 78 Resp: Temp: 36.1 ?C (97 ?F) 36.6 ?C (97.9 ?F) TempSrc: Temporal Artery Temporal Artery SpO2: 98% 97% 92% Weight: Height: Constitutional: alert and oriented x 3 (person, place and date/time); no apparent distress, obese ENT: normocephalic atraumatic, supple, no lymphadenopathy, no bruits, no JVD Lungs: clear to auscultation bilaterally Cardiovascular: S1, S2 normal, regular; no murmurs, rubs or gallops GI: soft; non-tender; non-distended; normoactive bowel sounds : not examined Musculoskeletal: Extremities: no clubbing, cyanosis, or edema Skin: no rashes Neuro: no focal deficits LABS - reviewed pertinent labs as below: CBC BMP PT/INR WBC (10*3/?L) Date Value 01/10/2024 7.68 NA (mmol/L) Date Value 01/10/2024 138 No results found for: "PT" PLT (10*3/?L) Date Value 01/10/2024 295 K (mmol/L) Date Value 01/10/2024 3.4 (L) INR (no units) Date Value 01/10/2024 1.0 HGB (g/dL) Date Value 01/10/2024 10.1 (L) BUN (mg/dL) Date Value 01/10/2024 10 HCT (%) Date Value 01/10/2024 33.8 (L) CREATININE (mg/dL) Date Value 01/10/2024 0.76 LIPID PROFILE GLUCOSE (mg/dL) Date Value 01/10/2024 90 CHOL (mg/dL) Date Value 01/10/2024 123 TSH LDL CHOL (mg/dL) Date Value 01/10/2024 44 TSH (mIU/L) Date Value 12/14/2023 1.14 CARDIAC ENZYMES HDL (mg/dL) Date Value 01/10/2024 33 (L) CK (U/L) Date Value 11/22/2023 72 TRIG (mg/dL) Date Value 01/10/2024 229 (H) LFTs No results found for: "CKMB" AST(SGOT) (U/L) Date Value 01/09/2024 20 TROPONIN I (ng/mL) Date Value 01/10/2024 0.007 ALT(SGPT) (U/L) Date Value 11/21/2015 18 ALTv (U/L) Date Value 01/09/2024 7 No results found for: "BNP" IMAGING - reviewed, pertinent results as below: Chest x-ray-clear EKG-normal sinus rhythm, nonspecific ST-T abnormality ASSESSMENT/PLAN Principal Problem: Hypotension Active Problems: COPD (chronic obstructive pulmonary disease) Obesity Coronary artery disease involving iroquois coronary artery of iroquois heart without angina pectoris Snores Cigarette smoker Primary hypertension Other hyperlipidemia Cardiomyopathy NSVT (nonsustained ventricular tachycardia) Other chest pain LV (left ventricular) mural thrombus Pulmonary hypertension Chronic combined systolic and diastolic congestive heart failure Chronic systolic and diastolic heart failure-no significant weight gain. No leg edema on exam. BNP is much lower than previous. Chest x-ray is clear. No acute heart failure. Continue p.o. Lasix. Consider to add spironolactone and SGLT2 inhibitor. Recommend outpatient sleep study to assess obstructive sleep apnea. Low salt diet. I/O. Daily weight. Fluid restriction. Keep K > 4 and Mg > 2. Upon discharge recommend to continue home dose Lasix. Continue digoxin. Her blood pressure is too low to tolerate guideline directed medical therapy. Chest pain-recent left heart cath showed nonobstructive CAD. Continue aspirin, Lipitor, and metoprolol. Troponin has been negative. The chest pain seems to be pulmonary in nature. Left ventricular thrombus-continue Eliquis. Echocardiogram today showed a very small apical thrombus. Nonobstructive CAD-Continue aspirin, Lipitor, and metoprolol. Hypertension-her blood pressure is relatively low. Hyperlipidemia-goal LDL less than 55-70. Continue Lipitor 40 mg daily. Snoring-consider a sleep study once insurance obtained. Recommend weight loss. Cigarette smoker-discussed smoking cessation. Obesity-recommend diet, exercise and weight loss. Thank you for allowing us to participate in the care of your patient. Please feel free to contact us for any questions or if we can be of further assistance. Kylee Montez MD, FACC, [employer] Technician Division of Cardiovascular Medicine [facility] - Health 2023-12-15 08:28:19 Associated Order(s): CONSULT CARDIOLOGY [facility] Cardiology Consult PCP: PATIENT DOES NOT HAVE A PCP Date of Service: 12/15/2023 CHIEF COMPLAINT/reason for consult: Heart failure HISTORY OF PRESENT ILLNESS This is a 53 years old female with past medical history of smoking, COPD, hypertension, obesity, nonobstructive coronary artery disease, systolic and diastolic heart failure, left ventricular thrombosis and pulm hypertension. She presented to [facility] emergency room with dyspnea, chest pain and edema. She reported swelling of her feet, face and hands. No weight gain. Chest x-ray is clear. Chest pain is left-sided chest pressure. Recent left heart cath showed nonobstructive CAD with mixed type pulm hypertension. She does snore. Has not had a sleep study yet. PAST MEDICAL HISTORY Past Medical History: Diagnosis Date Anxiety Extreme Bipolar disorder Breast pain 09/18/2015 Cauda equina compression 11/21/2023 diagnosed 08/2023 Congestive heart failure 2021 COPD (chronic obstructive pulmonary disease) Diverticulitis Epilepsy Hypertension [place] (my[place] infarction) 07/20/2007 Slipped disc Stomach cancer Substance abuse Marijuana daily-for anxiety Past Surgical History: Procedure Laterality Date ANTERIOR CERVICAL FUSION CHOLECYSTECTOMY HAND/FINGER SURGERY UNLISTED Bilateral 3 L hand, 3 R hand METATARSAL OSTEOTOMY Right 08/14/2015 Surgeon: Luis Jones Jr., DPM; [place] [facility] [place]IL[place]OMY Family History Problem Relation Age of Onset Breast Cancer Mother 50 treated and alive, HTN Breast Cancer Maternal Aunt 40 Maternal great aunt Breast Cancer Maternal Grandmother 60 Breast Cancer Other 30 Maternal cousin Breast Cancer Other 30 Maternal cousin ALLERGIES Allergies Allergen Reactions Green Tea Other - See comments Seizures Diclofenac Hypertension Keppra [Levetiracetam] Other - See comments Makes seizures worse MEDICATIONS No current facility-administered medications on file prior to encounter. Current Outpatient Medications on File Prior to Encounter Medication Sig Dispense Refill lisinopriL 2.5 mg tablet Take 1 tablet by mouth in the morning. 30 tablet 0 metoprolol succinate XL 25 mg 24 hr tablet Take 0.5 tablets by mouth in the morning. 30 tablet 1 apixaban 5 mg tablet Take 2 tablets by mouth 2 (two) times daily for 3 days, THEN 1 tablet 2 (two) times daily for 90 days. Indications: history of deep vein thrombosis 192 tablet 0 digoxin 125 mcg tablet Take 1 tablet by mouth in the morning. 30 tablet 2 divalproex ER 500 mg 24 hr tablet Take 2 tablets by mouth every 12 (twelve) hours. 120 tablet 2 DULoxetine 30 mg capsule Take 1 capsule by mouth in the morning. 30 capsule 2 furosemide 40 mg tablet Take 1 tablet by mouth every morning and evening. 60 tablet 2 gabapentin 100 mg capsule Take 1 capsule by mouth in the morning and 1 capsule at noon and 1 capsule in the evening. 90 capsule 2 metFORMIN 500 mg tablet Take 1 tablet by mouth in the morning. aspirin 81 mg chewable tablet Take 1 tablet by mouth in the morning. 30 tablet 5 atorvastatin 40 mg tablet Take 1 tablet by mouth at bedtime. 30 tablet 5 albuterol 2.5 mg /3 mL (0.083 %) nebulizer solution Inhale 3 mL every 4 (four) hours as needed for Wheezing or Shortness of Breath. 1 Each 0 tamsulosin 0.4 mg 24 hr capsule Take 1 capsule by mouth in the morning for 90 days. 30 capsule 2 mirtazapine 15 mg tablet Take 1 tablet by mouth at bedtime. Lacosamide (VIMPAT) 100 mg tablet Take 1 tablet by mouth in the morning and 1 tablet in the evening. 60 tablet 0 cyclobenzaprine 5 mg tablet Take 1 tablet by mouth in the morning and 1 tablet at noon and 1 tablet in the evening. 21 tablet 0 dicyclomine 20 mg tablet Take 1 tablet by mouth 4 (four) times daily as needed for Abdominal pain. 20 tablet 0 ondansetron 4 mg tablet Take 1 tablet by mouth every 8 (eight) hours as needed for Nausea and Vomiting (N/V). loratadine (CLARITIN LIQUI-GEL) 10 mg capsule Take by mouth daily. MULTIVITAMIN ORAL Take 1 Tab by mouth daily. omega-3 fatty acids-vitamin E (FISH OIL) 1,000 mg capsule Take 1 g by mouth daily. SOCIAL HISTORY Social History Socioeconomic History Marital status: Spouse name: Mony Number of children: 0 Highest education level: GED or equivalent Tobacco Use Smoking status: Every Day Current packs/day: 1.00 Average packs/day: 1 pack/day for 30.0 years (30.0 ttl pk-yrs) Types: Cigarettes, Cigars Passive exposure: Current Smokeless tobacco: Never Substance and Sexual Activity Alcohol use: No Alcohol/week: 0.0 standard drinks of alcohol Drug use: Yes Types: Marijuana Comment: smokes marijuana daily Sexual activity: Yes Partners: Male Social Determinants of Health Financial Resource Strain: Low Risk (12/03/2023) Overall Financial Resource Strain (CARDIA) Difficulty of Paying Living Expenses: Not very hard Food Insecurity: Food Insecurity Present (12/03/2023) Hunger Vital Sign Worried About Running Out of Food in the Last Year: Sometimes true Ran Out of Food in the Last Year: Sometimes true Transportation Needs: No Transportation Needs (12/03/2023) PRAPARE - Transportation Lack of Transportation (Medical): No Lack of Transportation (Non-Medical): No Recent Concern: Transportation Needs - Unmet Transportation Needs (11/26/2023) PRAPARE - Transportation Lack of Transportation (Medical): Yes Lack of Transportation (Non-Medical): Yes Physical Activity: Inactive (12/03/2023) Exercise Vital Sign Days of Exercise per Week: 0 days Minutes of Exercise per Session: 0 min Social Connections: Unknown (12/03/2023) Social Connection and Isolation Panel [NHANES] Frequency of Communication with Friends and Family: Twice a week Marital Status: Housing Stability: High Risk (12/03/2023) Housing Stability Vital Sign Unable to Pay for Housing in the Last Year: Yes Unstable Housing in the Last Year: Yes REVIEW OF SYSTEMS At least 10 systems reviewed, negative except as mentioned in HPI PHYSICAL EXAMINATION Vitals: 12/14/23 2307 12/15/23 0312 12/15/23 0720 12/15/23 0735 BP: 109/67 115/68 105/64 Pulse: 76 92 72 73 Resp: 18 18 18 18 Temp: 36.1 ?C (96.9 ?F) 36.1 ?C (96.9 ?F) 36.1 ?C (97 ?F) TempSrc: Temporal Artery Temporal Artery SpO2: 93% 97% 95% 95% Weight: 78.5 kg (173 lb) Height: Constitutional: alert and oriented x 3 (person, place and date/time); no apparent distress, obese ENT: normocephalic atraumatic, supple, no lymphadenopathy, no bruits, no JVD Lungs: clear to auscultation bilaterally Cardiovascular: S1, S2 normal, regular; no murmurs, rubs or gallops GI: soft; non-tender; non-distended; normoactive bowel sounds : not examined Musculoskeletal: Extremities: no clubbing, cyanosis, or edema Skin: no rashes Neuro: no focal deficits LABS - reviewed pertinent labs as below: CBC BMP PT/INR WBC (10*3/?L) Date Value 12/15/2023 3.81 (L) NA (mmol/L) Date Value 12/15/2023 136 No results found for: "PT" PLT (10*3/?L) Date Value 12/15/2023 278 K (mmol/L) Date Value 12/15/2023 4.0 INR (no units) Date Value 11/22/2023 1.4 HGB (g/dL) Date Value 12/15/2023 10.2 (L) BUN (mg/dL) Date Value 12/15/2023 13 HCT (%) Date Value 12/15/2023 34.2 (L) CREATININE (mg/dL) Date Value 12/15/2023 0.61 LIPID PROFILE GLUCOSE (mg/dL) Date Value 12/15/2023 133 (H) CHOL (mg/dL) Date Value 11/22/2023 89 (L) TSH LDL CHOL (mg/dL) Date Value 11/22/2023 46 TSH (mIU/L) Date Value 12/14/2023 1.14 CARDIAC ENZYMES HDL (mg/dL) Date Value 11/22/2023 28 (L) CK (U/L) Date Value 11/22/2023 72 TRIG (mg/dL) Date Value 11/22/2023 76 LFTs No results found for: "CKMB" AST(SGOT) (U/L) Date Value 12/14/2023 28 TROPONIN I (ng/mL) Date Value 12/15/2023 0.005 ALT(SGPT) (U/L) Date Value 11/21/2015 18 ALTv (U/L) Date Value 12/14/2023 13 No results found for: "BNP" IMAGING - reviewed, pertinent results as below: Chest x-ray-clear EKG-normal sinus rhythm, nonspecific ST-T abnormality ASSESSMENT/PLAN Principal Problem: Shortness of breath Active Problems: Obesity Chest pain, unspecified type Coronary artery disease involving iroquois coronary artery of iroquois heart without angina pectoris Snores Cigarette smoker Primary hypertension Other hyperlipidemia Cardiomyopathy NSVT (nonsustained ventricular tachycardia) LV (left ventricular) mural thrombus Pulmonary hypertension Acute on chronic systolic and diastolic heart failure-no significant weight gain. No leg edema on exam today. BNP is about baseline. Chest x-ray is clear. I suspect her swelling is probably due to obesity and sleep apnea. Continue p.o. Lasix. Consider to add spironolactone and SGLT2 inhibitor. Recommend outpatient sleep study to assess obstructive sleep apnea. Low salt diet. I/O. Daily weight. Fluid restriction. Keep K > 4 and Mg > 2. Upon discharge recommend to increase home dose Lasix. Continue digoxin. Chest pain-recent left heart cath showed nonobstructive CAD. Continue aspirin, Lipitor, and metoprolol. Troponin has been negative. Left ventricular thrombus-continue Eliquis. Nonobstructive CAD-Continue aspirin, Lipitor, and metoprolol. Hypertension-her blood pressure is relatively low. Hyperlipidemia-goal LDL less than 55-70. Continue Lipitor 40 mg daily. Snoring-consider a sleep study once insurance obtained. Recommend weight loss. Cigarette smoker-discussed smoking cessation. Obesity-recommend diet, exercise and weight loss. Thank you for allowing us to participate in the care of your patient. Please feel free to contact us for any questions or if we can be of further assistance. Kylee Montez MD, FACC, [employer] Technician Division of Cardiovascular Medicine [facility] [employer] 2023-11-27 14:57:00 Associated Order(s): CONSULT ADULT PHYSICAL THERAPY 11/27/2023 Physical therapy note: Duplicate consult. Sami Teran PT, DPT,CMSR Sami Teran PT [facility] [employer] 2023-11-25 10:16:00 Associated Order(s): CONSULT ADULT PHYSICAL THERAPY Patient agreeable to working with physical therapy. Patient met semi reclined in bed with vitals as follows HR: 121 bpm, Spo2: 93% RR: 14 bpm, BP: 118/81 Recommend nursing staff utilize leo stedy or max assist to safely assist patient with mobility out of the bed or chair. PHYSICAL THERAPY EVALUATION Consult received, chart reviewed and evaluation complete this date. Patient is referred to PT for evaluation and treatment. Patient is a 53 year old female who presents to hospital for Chest pain, unspecified type [R07.9] Cardiogenic shock [R57.0] . Patient is seen s/p left heart cath on 11/23/23 . Discharge Recommendations: Therapy Needs and Potential: Patient would benefit from continued physical therapy services to address: decline in bed mobility decline in transfers decline w/c mobility decreased endurance Patient demonstrates good potential to improve and meet therapy goals with further physical therapy services. Patient appears motivated to improve their functional mobility and return to their previous level of function. Patient demonstrates ability to tolerate atleast 30-60 minutes of physical therapy with active participation. Challenges to Home Transition: increased risk of falls decreased safety awareness environmental barriers Equipment recommendations: wheelchair, hospital bed, and mechanical lift Current Functional Status and/or Treatment: AM-PAC 6 Clicks (Raw Score 0=Dependent, 24=Independent; Low function Raw Score 0= Dependent, 32=Independent): Raw Score - Basic Mobility : 12 T-Scale Score - Basic Mobility : 32.23 Bed Mobility: Rolling: Minimal Assistance with verbal cues for hand placement and technique. Sitting at the edge of bed supervision with verbal cues. Scooting in sitting: supervision with verbal cues for hand placement and technique Dizziness No Transfers: Sit to stand: Maximum Assistance using no device. Stand to sit: Maximum Assistance using no device. With verbal cues for technique Transfer: max assist with stand pivot transfer Dizziness No Ambulation: not appropriate due to patient is wheel chair bound at baseline Dizziness No Therapeutic exercise: instructed patient in the following: ankle pumps, heel slides, hip abduction/adduction, long arc quads 10x After session, patient up in chair. Call button provided. Vitals signs at the end of session HR; 131 bpm, Spo2: 96% with NC, RR: 25bpm, BP; 118/81 PLAN OF CARE: While in the hospital, PT will follow patient at least 2 times per week,once or twice a day, per patient's tolerance and needs. See below for complete details. Admit Date: 11/21/2023 Hospital Diagnosis:Chest pain, unspecified type [R07.9] Cardiogenic shock [R57.0] PT Diagnosis: Difficulty walking and Weakness Weight Bearing Precaution: NA General Precautions: PPE used:Gloves, General, Fall,IV peripheral , oxygen: Nasal canula Bracing/Cast present or required:N/A PMH: Past Medical History: Diagnosis Date Anxiety Extreme Bipolar disorder Breast pain 09/18/2015 Cauda equina compression 11/21/2023 diagnosed 08/2023 Congestive heart failure 2021 COPD (chronic obstructive pulmonary disease) Diverticulitis Epilepsy Hypertension [place] (my[place] infarction) 07/20/2007 Slipped disc Stomach cancer Substance abuse Marijuana daily-for anxiety PSH: Past Surgical History: Procedure Laterality Date ANTERIOR CERVICAL FUSION CHOLECYSTECTOMY HAND/FINGER SURGERY UNLISTED Bilateral 3 L hand, 3 R hand METATARSAL OSTEOTOMY Right 08/14/2015 Surgeon: Luis Jones Jr., DPM; [place] [facility] [place]OMY Prior Living Situation: lives with her partner and 2 kids ages 14 and 13, in a single story house with no steps to enter DME: Wheel Chair Prior level of Mobility: uses w/c primarily Suspected ischemic or hemorraghic stroke:No Subjective: patient states that she was using wheel chair and needs help at time for transfer Patient/Family Goals: to get better Patient/Family verbalizes understanding of condition: Yes PAIN: -Pain Description: constant -Pain Location: bilateral LE and Rt shoulder -Pain rating before treatment: 10, After treatment: 10 -Pain Management: Nursing Notified COMMUNICATION Primary Language: French Able to Verbalize needs: Yes Vision:good; no issues reported Hearing:good; no issues reported ORIENTATION/COGNITION: Oriented to: person, place, date/time, and situation Awake: Yes Alert: Yes Dizzy: No Follows Commands: Yes 1-Step Yes Multi-Step Yes Inconsistent: No NEUROLOGICAL Light Touch: within functional limits bilateral LE and shooting pain Tone: normal BALANCE: Sitting: Static: Good Dynamic: Fair+ Standing: Static: Fair+ Dynamic: Fair RANGE OF MOTION: within functional limits bilateral LE. STRENGTH: 3+/5 (F+), bilateral LE ENDURANCE: Fair+, Nasal canula SKIN INTEGRITY: defer to nursing notes PROBLEM LIST: Decline in bed mobility, Decline in gait, Decline in transfers, Difficulty with stairs, Decreased strength, Decreased endurance, and Decreased balance ASSESSMENT: Patient is a 53 year old female seen secondary to the above listed diagnosis. Patient would benefit from continued PT to address the above listed deficits to maximize independence and safety with functional mobility. Rehabilitation Potential: fair Goals: The following goals are to maximize independence and safety with functional mobility to eventually return to prior living situation and prior functional status. Upon discharge, patient and/or family will demonstrate the followin. Supine-sit: Independent 2. Stand pivot transfer: Supervision 3. Independent with wheel chair , Feet: community distance . Treatment Plan: Therapeutic exercise, Transfer training, Balance training, Bed mobility training, Equipment needs assessment, Safety education, patient/caregiver education, and Wheelchair mobility training PATIENT EDUCATION: Patient provided with preferred teaching of verbal information on role of PT, plan of care. Shows readiness to learn. Verbal instruction teaching provided. Individual verbalizes understanding of teaching provided. Total Time Tx Codes in Minutes: 10 min Total Treatment Time in Minutes: 30 min Sami Loza. JeffryPT, DPT,CMSR [facility] History and Physical Notes Date/Time Note Provider Source 2024-01-09 22:04:15 [facility] Hospitalist Admission H&P Date of Service: 01/09/2024 CHIEF COMPLAINT: Patient with complaints of chest pain and a history of cardiomyopathy with left ventricular thrombus HISTORY OF PRESENT ILLNESS Heather Turner is a 53 year old female who presents with chest discomfort. Patient had extensive cardiac workup done recently at [facility]. At that time, patient was noted to have severe cardiomyopathy with an ejection fraction of 15 to 20% and left ventricular thrombus. Patient is medical history has been fairly extensive for her young age. She was diagnosed with back injury a few years ago and she had cauda equina compression which resulted in her having lower extremity weakness. She is also had a lot of stressors in her life. Her at home after suffering a cardiac arrest which traumatized her and her children quite extensively. Since then she has been dealing with a lot of anxiety disorders and she is had a history of bipolar disorder as well. She has pseudoseizures, but she has been seeing a neurologist and she is on Depakote at this time. She had been on Keppra in the past, although she has had hospitalizations where her seizures are brought on by a lot of stress. She is raising 2 of her children by herself and her health is very poor. She states her chest pain is mainly in the sternal region. There was no significant radiation of her chest pain. She did feel little short of breath and had cough and congestion. She has been on Eliquis which she states she still taking at home. She also has chronic pain issues which she has been dealing with for quite a while. Patient recently started coming to [facility] as she had been going to [facility]. At this time, she will be admitted to the hospital for chest pain and hypotension. She is on multiple cardiac medications and will monitor her hemodynamics closely. We may repeat the echocardiogram to monitor the left ventricular thrombus and her heart functioning.. PAST MEDICAL HISTORY Past Medical History: Diagnosis Date Anxiety Extreme Bipolar disorder Breast pain 09/18/2015 Cauda equina compression 11/21/2023 diagnosed 08/2023 Congestive heart failure 2021 COPD (chronic obstructive pulmonary disease) Diverticulitis Epilepsy Hypertension [place] (my[place] infarction) 07/20/2007 Slipped disc Stomach cancer Substance abuse Marijuana daily-for anxiety Pseudoseizures PAST SURGICAL HISTORY Past Surgical History: Procedure Laterality Date ANTERIOR CERVICAL FUSION CHOLECYSTECTOMY HAND/FINGER SURGERY UNLISTED Bilateral 3 L hand, 3 R hand METATARSAL OSTEOTOMY Right 08/14/2015 Surgeon: Luis Jones Jr., ESTHER; Location: [facility] TONSILLECTOMY ALLERGIES Allergies Allergen Reactions Green Tea Other - See comments Seizures Diclofenac Hypertension Keppra [Levetiracetam] Other - See comments Makes seizures worse MEDICATIONS Current home medication list reviewed: Patient's Medications START taking these medications No medications on file CONTINUE taking these medications which have NOT CHANGED ALBUTEROL 2.5 MG /3 ML (0.083 %) NEBULIZER SOLUTION Inhale 3 mL every 4 (four) hours as needed for Wheezing or Shortness of Breath. APIXABAN 5 MG TABLET Take 2 tablets by mouth 2 (two) times daily for 3 days, THEN 1 tablet 2 (two) times daily for 90 days. Indications: history of deep vein thrombosis ASPIRIN 81 MG CHEWABLE TABLET Take 1 tablet by mouth in the morning. ATORVASTATIN 40 MG TABLET Take 1 tablet by mouth at bedtime. CYCLOBENZAPRINE 5 MG TABLET Take 1 tablet by mouth in the morning and 1 tablet at noon and 1 tablet in the evening. DICYCLOMINE 20 MG TABLET Take 1 tablet by mouth 4 (four) times daily as needed for Abdominal pain. DIGOXIN 125 MCG TABLET Take 1 tablet by mouth in the morning. DIVALPROEX ER 500 MG 24 HR TABLET Take 2 tablets by mouth every 12 (twelve) hours. DULOXETINE 30 MG CAPSULE Take 1 capsule by mouth in the morning. EMPAGLIFLOZIN (JARDIANCE) 10 MG TABLET Take 1 tablet by mouth in the morning for 30 days. FUROSEMIDE 40 MG TABLET Take 1.5 tablets by mouth every morning and evening for 60 days. GABAPENTIN 100 MG CAPSULE Take 1 capsule by mouth in the morning and 1 capsule at noon and 1 capsule in the evening. LACOSAMIDE (VIMPAT) 100 MG TABLET Take 1 tablet by mouth in the morning and 1 tablet in the evening. LISINOPRIL 2.5 MG TABLET Take 1 tablet by mouth in the morning. LORATADINE (CLARITIN LIQUI-GEL) 10 MG CAPSULE Take by mouth daily. METFORMIN 500 MG TABLET Take 1 tablet by mouth in the morning for 30 days. METOPROLOL SUCCINATE XL 25 MG 24 HR TABLET Take 0.5 tablets by mouth in the morning. MIRTAZAPINE 15 MG TABLET Take 1 tablet by mouth at bedtime. MULTIVITAMIN ORAL Take 1 Tab by mouth daily. OMEGA-3 FATTY ACIDS-VITAMIN E (FISH OIL) 1,000 MG CAPSULE Take 1 g by mouth daily. ONDANSETRON 4 MG TABLET Take 1 tablet by mouth every 8 (eight) hours as needed for Nausea and Vomiting (N/V). SPIRONOLACTONE 25 MG TABLET Take 1 tablet by mouth in the morning for 30 days. TAMSULOSIN 0.4 MG 24 HR CAPSULE Take 1 capsule by mouth in the morning for 90 days. START taking Modified Medications as Prescribed No medications on file STOP taking these medications No medications on file FAMILY HISTORY Family History Problem Relation Age of Onset Breast Cancer Mother 50 treated and alive, HTN Breast Cancer Maternal Aunt 40 Maternal great aunt Breast Cancer Maternal Grandmother 60 Breast Cancer Other 30 Maternal cousin Breast Cancer Other 30 Maternal cousin SOCIAL HISTORY Social History Socioeconomic History Marital status: Spouse name: Mony Number of children: 0 Highest education level: GED or equivalent Tobacco Use Smoking status: Every Day Current packs/day: 1.00 Average packs/day: 1 pack/day for 30.0 years (30.0 ttl pk-yrs) Types: Cigarettes, Cigars Passive exposure: Current Smokeless tobacco: Never Substance and Sexual Activity Alcohol use: No Alcohol/week: 0.0 standard drinks of alcohol Drug use: Yes Types: Marijuana Comment: smokes marijuana daily Sexual activity: Yes Partners: Male Social Determinants of Health Financial Resource Strain: Low Risk (12/03/2023) Overall Financial Resource Strain (CARDIA) Difficulty of Paying Living Expenses: Not very hard Food Insecurity: Food Insecurity Present (12/03/2023) Hunger Vital Sign Worried About Running Out of Food in the Last Year: Sometimes true Ran Out of Food in the Last Year: Sometimes true Transportation Needs: No Transportation Needs (12/03/2023) PRAPARE - Transportation Lack of Transportation (Medical): No Lack of Transportation (Non-Medical): No Recent Concern: Transportation Needs - Unmet Transportation Needs (11/26/2023) PRAPARE - Transportation Lack of Transportation (Medical): Yes Lack of Transportation (Non-Medical): Yes Physical Activity: Inactive (12/03/2023) Exercise Vital Sign Days of Exercise per Week: 0 days Minutes of Exercise per Session: 0 min Social Connections: Unknown (12/03/2023) Social Connection and Isolation Panel [NHANES] Frequency of Communication with Friends and Family: Twice a week Marital Status: Housing Stability: High Risk (12/03/2023) Housing Stability Vital Sign Unable to Pay for Housing in the Last Year: Yes Unstable Housing in the Last Year: Yes REVIEW OF SYSTEMS 10 systems negative except per HPI PHYSICAL EXAMINATION BP 94/58 | Pulse 69 | Temp 37.7 ?C (99.9 ?F) (Oral) | Resp 14 | Ht 1.575 m (5' 2") | Wt 90.7 kg (200 lb) | SpO2 99% | BMI 36.58 kg/m? General: No acute distress HEENT: Normal oral mucosa, anicteric sclerae, NCAT Cardiovascular: RRR with systolic ejection murmur 2 out of 6 Lungs: Diminished breath sounds bilaterally; some end expiratory wheezing but otherwise clear Abdomen: Soft, NTND Musculoskeletal: No synovitis, normal muscle mass Genitourinary: Deferred Skin: No rash, no skin lesions Extremities: No clubbing, no cyanosis, no lower extremity edema Neuro: AAOx3, generalized weakness of the lower extremities Psych: Normal affect LABS - reviewed pertinent labs as below: CBC BMP PT/INR WBC (10*3/?L) Date Value 01/09/2024 8.52 NA (mmol/L) Date Value 01/09/2024 137 No results found for: "PT" RBC (10*6/?L) Date Value 01/09/2024 4.11 K (mmol/L) Date Value 01/09/2024 3.8 INR (no units) Date Value 11/22/2023 1.4 PLT (10*3/?L) Date Value 01/09/2024 312 CALCIUM (mg/dL) Date Value 01/09/2024 8.7 HGB (g/dL) Date Value 01/09/2024 10.7 (L) CL (mmol/L) Date Value 01/09/2024 104 aPTT HCT (%) Date Value 01/09/2024 35.4 (L) BUN (mg/dL) Date Value 01/09/2024 7 APTT Patient (Seconds) Date Value 11/24/2023 38 (H) CREATININE (mg/dL) Date Value 01/09/2024 0.60 IMAGING - reviewed, pertinent results as below: Hospital Encounter on 01/09/24 CT CHEST PULMONARY ANGIOGRAM Narrative CTA CHEST WITH IV CONTRAST ORDERING PHYSICIAN: OLENA DEL CASTILLO HISTORY: Pulmonary emboli suspected, elevated d-dimer COMPARISON: 12/11/2022 TECHNIQUE: CTA of the chest with IV contrast. Standard and MIP reconstructions performed. CT performed with ALARA (As Low As Reasonably Achievable) principles. FINDINGS: The heart is normal in size. There is no pleural effusion. No pericardial effusion. The aorta and pulmonary artery are normal. There is no pathologic lymphadenopathy. Mild centrilobular emphysema. Calcified granulomas in the left lung apex. Mild bilateral ground glass opacity. Dependent atelectasis in the bilateral lower lobes. No pleural effusion or pneumothorax. Diffuse bronchial wall thickening. There is no filling defect within the pulmonary artery to the subsegmental level. Status post cholecystectomy. There is a 2.9 cm left adrenal adenoma. ACDF hardware in the lower cervical spine. Impression 1. No pulmonary emboli. 2. Mild emphysema. 3. Diffuse nodular thickening concerning for bronchitis. 4. Diffuse groundglass opacities may be due to mild pulmonary edema versus atypical pneumonia. RL: [id number] AF: [id number] End of report CHEST 1 VW Narrative Exam: Chest (1 View), 01/09/2024 4:15 PM. Ordering Physician: OLENA DEL CASTILLO. History: Chest Pain. Technique: One view of the chest. Comparison: 12/14/2023. Findings: Cardiac silhouette is mildly enlarged. There is no pneumothorax. There is no consolidation or pleural effusion. Pleural and diaphragmatic contours are normal. Calcified granuloma is seen in the left upper lobe. Changes of anterior cervical discectomy and fusion are seen. Impression Impression: No consolidation or pleural effusion. No pneumothorax. RL: [id number] End of Report SSMENT: 1. Chest pain rule out acute coronary syndrome 2. Cardiomyopathy with left ventricular thrombus with an ejection fraction of 15 to 20% 3. History of DVT with pulmonary embolism 4. History of type 2 diabetes 5. Cauda equina syndrome with bilateral lower extremity weakness 6. History of bipolar disorder with pseudoseizures 7. History of major depressive disorder with anxiety disorder 8. History of COPD secondary to tobacco abuse PLAN: 1. Chest pain rule out acute coronary syndrome; patient also with a history of cardiomyopathy with an ejection fraction of 15 to 20% in the left ventricular thrombus that was diagnosed last month. She also has been diagnosed with a pulmonary embolism with DVT. She has been on anticoagulation as well as antiplatelet therapy. She is on multiple blood pressure medications at home including metoprolol 12.5 daily lisinopril 2.5 daily and she takes Lasix 60 mg twice a day. She states she has been compliant with her Eliquis. Will repeat an echocardiogram and a cardiology consultation. Her blood pressure has been a little soft and will monitor closely. She looks to be clinically stable and her respiratory status is doing well so we will readjust her BP meds. 2. History of DVT with PE; continue with Eliquis 3. History of type 2 diabetes; strict blood sugar control and resume oral hypoglycemic agents 4. Patient with bilateral lower extremity weakness secondary to cauda equina syndrome; patient gets around with a wheelchair mainly 5. Patient with history of bipolar disorder as well as major depressive disorder with anxiety disorder; patient also suffers from pseudoseizures whenever her anxiety gets really bad. Will resume her antidepressants and anxiolytics. She is also on Depakote which we will resume. 6. COPD and a history of tobacco abuse; nicotine patch as needed as well as inhaler therapy 7. GI DVT prophylaxis DVT prophylaxis: eliquis Stress ulcer prophylaxis: pantoprazole Code status: FULL Advanced Care Planning (Z71.89) Above assessment and plan discussed at length with patient, patient expressed full understanding. Questions and concerned addressed. Surrogate decision maker: NO Level of care expected after discharge: HOME Time spent: 3 minutes discussing the advanced care plan Smoking Cessation: (Z71.6) Tobacco user?: YES; nicotine Patient will require inpatient stay of 2 midnights or more given high risk of morbidity and mortality. [place] [facility] was verified during stay Darrick Altamirano MD [facility] 2023-12-14 22:42:40 MEDICINE [facility] ADMIT H&P Date of Service: 12/14/2023 CHIEF COMPLAINT: shortness of breath Subjective History of Present Illness 53 year old female with a PMH significant for HFrEF (15-20% on 11/22/23) w/ LV thrombus, RLE DVT, RLL segmental PE, HTN, smoker, COPD, chronic low back pain, depression presenting from [facility] ED due to chest heaviness and lightheadedness. Patient was recently admitted and subsequently discharged on 12/03/2023 for similar complaints. She was noted to have hypotensive thought secondary to medication. Antihypertensive agents were held and fluid was given. Patient left AMA. She comes back in with similar symptoms that restarted yesterday. She describes shortness of breath with exertion. She noted generalized chest pain. Additional symptoms: productive cough (greenish), hands/leg swelling, decreased urinary flow. PAST MEDICAL HISTORY Past Medical History: Diagnosis Date Anxiety Extreme Bipolar disorder Breast pain 09/18/2015 Cauda equina compression 11/21/2023 diagnosed 08/2023 Congestive heart failure 2021 COPD (chronic obstructive pulmonary disease) Diverticulitis Epilepsy Hypertension [place] (my[place] infarction) 07/20/2007 Slipped disc Stomach cancer Substance abuse Marijuana daily-for anxiety Past Surgical History: Procedure Laterality Date ANTERIOR CERVICAL FUSION CHOLECYSTECTOMY HAND/FINGER SURGERY UNLISTED Bilateral 3 L hand, 3 R hand METATARSAL OSTEOTOMY Right 08/14/2015 Surgeon: Luis Jones Jr., ESTHER; [place] [facility] [place]IL[place]OMY Family History Problem Relation Age of Onset Breast Cancer Mother 50 treated and alive, HTN Breast Cancer Maternal Aunt 40 Maternal great aunt Breast Cancer Maternal Grandmother 60 Breast Cancer Other 30 Maternal cousin Breast Cancer Other 30 Maternal cousin ALLERGIES Allergies Allergen Reactions Green Tea Other - See comments Seizures Diclofenac Hypertension Keppra [Levetiracetam] Other - See comments Makes seizures worse MEDICATIONS No current facility-administered medications on file prior to encounter. Current Outpatient Medications on File Prior to Encounter Medication Sig Dispense Refill lisinopriL 2.5 mg tablet Take 1 tablet by mouth in the morning. 30 tablet 0 metoprolol succinate XL 25 mg 24 hr tablet Take 0.5 tablets by mouth in the morning. 30 tablet 1 apixaban 5 mg tablet Take 2 tablets by mouth 2 (two) times daily for 3 days, THEN 1 tablet 2 (two) times daily for 90 days. Indications: history of deep vein thrombosis 192 tablet 0 digoxin 125 mcg tablet Take 1 tablet by mouth in the morning. 30 tablet 2 divalproex ER 500 mg 24 hr tablet Take 2 tablets by mouth every 12 (twelve) hours. 120 tablet 2 DULoxetine 30 mg capsule Take 1 capsule by mouth in the morning. 30 capsule 2 furosemide 40 mg tablet Take 1 tablet by mouth every morning and evening. 60 tablet 2 gabapentin 100 mg capsule Take 1 capsule by mouth in the morning and 1 capsule at noon and 1 capsule in the evening. 90 capsule 2 metFORMIN 500 mg tablet Take 1 tablet by mouth in the morning. aspirin 81 mg chewable tablet Take 1 tablet by mouth in the morning. 30 tablet 5 atorvastatin 40 mg tablet Take 1 tablet by mouth at bedtime. 30 tablet 5 albuterol 2.5 mg /3 mL (0.083 %) nebulizer solution Inhale 3 mL every 4 (four) hours as needed for Wheezing or Shortness of Breath. 1 Each 0 tamsulosin 0.4 mg 24 hr capsule Take 1 capsule by mouth in the morning for 90 days. 30 capsule 2 mirtazapine 15 mg tablet Take 1 tablet by mouth at bedtime. Lacosamide (VIMPAT) 100 mg tablet Take 1 tablet by mouth in the morning and 1 tablet in the evening. 60 tablet 0 cyclobenzaprine 5 mg tablet Take 1 tablet by mouth in the morning and 1 tablet at noon and 1 tablet in the evening. 21 tablet 0 dicyclomine 20 mg tablet Take 1 tablet by mouth 4 (four) times daily as needed for Abdominal pain. 20 tablet 0 ondansetron 4 mg tablet Take 1 tablet by mouth every 8 (eight) hours as needed for Nausea and Vomiting (N/V). loratadine (CLARITIN LIQUI-GEL) 10 mg capsule Take by mouth daily. MULTIVITAMIN ORAL Take 1 Tab by mouth daily. omega-3 fatty acids-vitamin E (FISH OIL) 1,000 mg capsule Take 1 g by mouth daily. I attest that the foregoing medication list in the medical record is true, accurate and complete to the best of my knowledge SOCIAL HISTORY Social History Socioeconomic History Marital status: Spouse name: Mony Number of children: 0 Highest education level: GED or equivalent Tobacco Use Smoking status: Every Day Current packs/day: 1.00 Average packs/day: 1 pack/day for 30.0 years (30.0 ttl pk-yrs) Types: Cigarettes, Cigars Passive exposure: Current Smokeless tobacco: Never Substance and Sexual Activity Alcohol use: No Alcohol/week: 0.0 standard drinks of alcohol Drug use: Yes Types: Marijuana Comment: smokes marijuana daily Sexual activity: Yes Partners: Male Social Determinants of Health Financial Resource Strain: Low Risk (12/03/2023) Overall Financial Resource Strain (CARDIA) Difficulty of Paying Living Expenses: Not very hard Food Insecurity: Food Insecurity Present (12/03/2023) Hunger Vital Sign Worried About Running Out of Food in the Last Year: Sometimes true Ran Out of Food in the Last Year: Sometimes true Transportation Needs: No Transportation Needs (12/03/2023) PRAPARE - Transportation Lack of Transportation (Medical): No Lack of Transportation (Non-Medical): No Recent Concern: Transportation Needs - Unmet Transportation Needs (11/26/2023) PRAPARE - Transportation Lack of Transportation (Medical): Yes Lack of Transportation (Non-Medical): Yes Physical Activity: Inactive (12/03/2023) Exercise Vital Sign Days of Exercise per Week: 0 days Minutes of Exercise per Session: 0 min Social Connections: Unknown (12/03/2023) Social Connection and Isolation Panel [NHANES] Frequency of Communication with Friends and Family: Twice a week Marital Status: Housing Stability: High Risk (12/03/2023) Housing Stability Vital Sign Unable to Pay for Housing in the Last Year: Yes Unstable Housing in the Last Year: Yes REVIEW OF SYSTEMS Review of Systems Constitutional: Negative. HENT: Positive for sore throat. Negative for congestion, dental problem, drooling, ear discharge, ear pain, facial swelling, hearing loss, mouth sores, nosebleeds, postnasal drip, rhinorrhea, sinus pressure, sneezing, tinnitus, trouble swallowing and voice change. Eyes: Negative. Respiratory: Positive for cough, chest tightness and shortness of breath. Negative for apnea, choking, wheezing and stridor. Breasts: Negative. Cardiovascular: Positive for leg swelling. Negative for chest pain and palpitations. Gastrointestinal: Positive for nausea. Negative for abdominal distention, abdominal pain, anal bleeding, blood in stool, constipation, diarrhea, rectal pain and vomiting. Genitourinary: Positive for frequency (decreased). Negative for bladder incontinence, dysuria, urgency, hematuria, flank pain, decreased urine volume, vaginal bleeding, vaginal discharge, enuresis, difficulty urinating, genital sores, vaginal pain, menstrual problem, pelvic pain, dyspareunia and nocturia. Musculoskeletal: Positive for back pain and myalgias. Negative for arthralgias, gait problem, joint swelling, neck pain and neck stiffness. Skin: Negative. Neurological: Negative. Psychiatric/Behavioral: Negative. Endocrine: Endocrine negative Objective PHYSICAL EXAMINATION Vitals: 12/14/23 1830 12/14/23 1841 12/14/23 2018 12/14/23 2110 BP: 116/82 115/78 Pulse: 80 90 Resp: 15 20 18 Temp: 36.9 ?C (98.4 ?F) 36.2 ?C (97.2 ?F) TempSrc: Oral SpO2: 97% 95% 96% Weight: 90.7 kg (200 lb) Height: 1.6 m (5' 3") Physical Exam Vitals and nursing note reviewed. Constitutional: General: She is not in acute distress. Appearance: Normal appearance. She is obese. She is not ill-appearing, toxic-appearing or diaphoretic. HENT: Head: Normocephalic and atraumatic. Right Ear: External ear normal. Left Ear: External ear normal. Nose: Nose normal. No congestion. Eyes: General: No scleral icterus. Extraocular Movements: Extraocular movements intact. Conjunctiva/sclera: Conjunctivae normal. Pupils: Pupils are equal, round, and reactive to light. Cardiovascular: Rate and Rhythm: Normal rate and regular rhythm. Heart sounds: No murmur heard. No friction rub. No gallop. Pulmonary: Effort: Pulmonary effort is normal. No respiratory distress. Breath sounds: Wheezing present. Abdominal: General: Abdomen is flat. Bowel sounds are normal. There is no distension. Palpations: Abdomen is soft. Tenderness: There is no abdominal tenderness. There is no guarding. Musculoskeletal: General: Normal range of motion. Cervical back: Normal range of motion and neck supple. Right lower leg: No edema. Left lower leg: No edema. Skin: General: Skin is warm and dry. Neurological: Mental Status: She is alert. Psychiatric: Mood and Affect: Mood normal. Behavior: Behavior normal. Thought Content: Thought content normal. Judgment: Judgment normal. LABS/IMAGING - reviewed EXAM: XR CHEST 1 VW COMPARISON: 12/02/2023 HISTORY: 53 years-old Female; shortness of breath FINDINGS: Lungs: The lung volumes are normal. Left upper lung calcified granuloma. No focal opacities. No pneumothorax. No pleural effusion. Heart/Mediastinum: The cardiac silhouette appears normal. Bones and soft tissues: No acute osseous findings are detected. Redemonstrated ACDF projecting over the lower cervical spine. IMPRESSION No radiographic evidence of acute cardiopulmonary process. EKG: sinus rhythm Assessment & Plan Heather Turner is a 53 year old female with PMH as listed above, admitted to the hospital with: Acute respiratory distress: secondary to COPD exacerbation -- Treat underlying condition -- Oxygen supplementation as needed Chest pain atypical: So, far EKG and troponin are negative for an acute myocardial infarction. -- Will order pain control, oxygen, nitroglycerin prn, and aspirin. -- Will continue to trend the troponin -- Echocardiogram -- Cardiology has been consulted. 3. COPD exacerbation -- Will continue with duoneb scheduled/prn -- Oxygen supplementation as needed -- Will order for other supportive therapy (eg, anti-tussive, decongestant) -- Methylprednisone has been ordered 4. Chronic diastolic congestive heart failure: no sign of obvious volume overload on physical examination 5. Venous thromboembolism: -- Will continue with Eliquis 6. Diabetes: -- Will continue with insulin sliding scale 7. HTN: -- Will continue with metoprolol and lisionpril 8. Depression: -- Will continue with Remeron 9. Seizures: -- Will continue with locosamide. 10. Current smoker: spoke for greater than 3 minutes about smoking cessation. At this time, patient refuse smoking cessation therapy. Prophylaxis: DVT- On Eliquis Code Status: Full Code T [facility] EMERGENCY PHYSICIAN STAFF [facility] 2023-11-22 13:30:57 CCU Team Admit H&P Date of Service: 11/22/2023 15:16 Date of Service: 11/22/2023 CHIEF COMPLAINT: Shortness of Breath and Chest Pain Subjective: Patient reports SOB and chest tightness. Reports she is anxious and her daughter will come later with her medications. She reports she takes clonazepam every day. She has not had the medication in 3 days. She reports last cocaine use was 4 days ago, but denies ever using IVDU. Uses depakote for seizures. HISTORY OF PRESENT ILLNESS Heather Turner is a 53 year old female with a PMH significant for HFrEF (~35% 05/2023), HTN, Smoker, COPD (on intermittent home O2), chronic low back pain, seizure disorder, C3-C4 ACDF and L3-L4 laminectomies (06/01/23) c/b chronic low back pain 2/2 lumbar spinal stenosis, and depression presenting from [facility] ED due to SOB. Patient with NSTEMI likley 2/2 segmental RLL PE and also had RLE DVT, likely provoked 2/2 bedbound status. Heparin gtt was started. Patient treated for COPD exacerbation with steroids and acute on chronic HFrEF exacerbation with IV diuresis. Bilateral arterial doppler US was ordered to assess PAD. TTE revealed biventricular dysfunction EF of 15-20% with a LV thrombus present. Patient was transferred to CCU for inotropic support for biventricular failure cardiogenic shock. She was started patient on IV lasix 40 TID and milrinone 0.125 mcg/kg/min. Past medical history: Past Medical History: Diagnosis Date Anxiety Extreme Bipolar disorder Breast pain 09/18/2015 Cauda equina compression 11/21/2023 diagnosed 08/2023 Congestive heart failure 2021 COPD (chronic obstructive pulmonary disease) Diverticulitis Epilepsy Hypertension [place] (myocardial infarction) 07/20/2007 Slipped disc Stomach cancer Substance abuse Marijuana daily-for anxiety Prior to Admission medications Medication Sig Start Date End Date Taking? Authorizing Provider metoprolol succinate XL 25 mg 24 hr tablet Take 1 tablet by mouth every morning. 05/11/23 Yes Doctor Unassigned, [place] spironolactone 25 mg tablet Take 1 tablet by mouth in the morning and 1 tablet in the evening. 09/30/23 Yes Doctor Unassigned, [place] DULoxetine 30 mg capsule Take 1 capsule by mouth in the morning. Doctor Unassigned, [place] furosemide 20 mg tablet Take 1 tablet by mouth every morning and evening. Doctor Unassigned, [place] Lacosamide (VIMPAT) 100 mg tablet Take 1 tablet by mouth in the morning and 1 tablet in the evening. 12/11/22 Alfonso Alvarado PAC methocarbamoL 500 mg tablet Take 2 tablets by mouth 4 (four) times daily as needed for Pain (scale 7-10). 11/18/22 Ritchie Warren MD cyclobenzaprine 5 mg tablet Take 1 tablet by mouth in the morning and 1 tablet at noon and 1 tablet in the evening. 05/08/22 Garfield Paul AGACNP aspirin 81 mg chewable tablet Take 1 tablet by mouth in the morning. 04/16/22 Soumya Chua MD atorvastatin 40 mg tablet Take 1 tablet by mouth at bedtime. 04/15/22 Soumya Chua MD albuterol 2.5 mg /3 mL (0.083 %) nebulizer solution Inhale 3 mL every 4 (four) hours as needed for Wheezing or Shortness of Breath. 03/15/21 Lydia Desouza FNP dicyclomine 20 mg tablet Take 1 tablet by mouth 4 (four) times daily as needed for Abdominal pain. 02/19/21 Estefania Monroy PAC proMETHazine 25 mg tablet Take 1 tablet by mouth every 6 (six) hours as needed for Nausea and Vomiting (N/V). 02/19/21 Estefania Monroy PAC ondansetron 4 mg tablet Take 4 mg by mouth every 8 (eight) hours as needed. Doctor Unassigned, [place] pantoprazole 40 mg EC tablet Take 40 mg by mouth daily. Doctor Unassigned, [place] amLODIPine (NORVASC) 10 mg tablet Take 1 Tab by mouth daily. 09/20/15 Kylee Montez MD carvedilol (COREG) 6.25 mg tablet Take 1 Tab by mouth 2 (two) times daily with meals. 09/20/15 Kylee Montez MD lisinopril (PRINIVIL,ZESTRIL) 40 mg tablet Take 1 Tab by mouth daily. 09/20/15 Kylee Montez MD loratadine (CLARITIN LIQUI-GEL) 10 mg capsule Take by mouth daily. Doctor Unassigned, [place] MULTIVITAMIN ORAL Take 1 Tab by mouth daily. Doctor Unassigned, [place] omega-3 fatty acids-vitamin E (FISH OIL) 1,000 mg capsule Take 1 g by mouth daily. Doctor Unassigned, [place] Allergies Allergen Reactions Green Tea Other - See comments Seizures Diclofenac Hypertension Keppra [Levetiracetam] Other - See comments Makes seizures worse Past surgical history: Past Surgical History: Procedure Laterality Date ANTERIOR CERVICAL FUSION CHOLECYSTECTOMY HAND/FINGER SURGERY UNLISTED Bilateral 3 L hand, 3 R hand METATARSAL OSTEOTOMY Right 08/14/2015 Surgeon: Luis Jones Jr., DPM; [place] [facility] [place] Allergies: Allergies Allergen Reactions Green Tea Other - See comments Seizures Diclofenac Hypertension Keppra [Levetiracetam] Other - See comments Makes seizures worse Social history: Social History Socioeconomic History Marital status: Spouse name: Mony Number of children: 0 Years of education: Not on file Highest education level: GED or equivalent Occupational History Not on file Tobacco Use Smoking status: Every Day Current packs/day: 1.00 Average packs/day: 1 pack/day for 30.0 years (30.0 ttl pk-yrs) Types: Cigarettes, Cigars Passive exposure: Current Smokeless tobacco: Never Substance and Sexual Activity Alcohol use: No Alcohol/week: 0.0 standard drinks of alcohol Drug use: Yes Types: Marijuana Comment: smokes marijuana daily Sexual activity: Yes Partners: Male Other Topics Concern Not on file Social History Narrative Not on file Social Determinants of Health Financial Resource Strain: Medium Risk (08/01/2022) Overall Financial Resource Strain (CARDIA) Difficulty of Paying Living Expenses: Somewhat hard Food Insecurity: No Food Insecurity (08/01/2022) Hunger Vital Sign Worried About Running Out of Food in the Last Year: Never true Ran Out of Food in the Last Year: Never true Transportation Needs: No Transportation Needs (08/01/2022) PRAPARE - Transportation Lack of Transportation (Medical): No Lack of Transportation (Non-Medical): No Physical Activity: Inactive (08/01/2022) Exercise Vital Sign Days of Exercise per Week: 0 days Minutes of Exercise per Session: 0 min Stress: Not on file Social Connections: Unknown (08/01/2022) Social Connection and Isolation Panel [NHANES] Frequency of Communication with Friends and Family: More than three times a week Frequency of Social Gatherings with Friends and Family: Not on file Attends Caodaism Services: Not on file Active Member of Clubs or Organizations: Not on file Attends Club or Organization Meetings: Not on file Marital Status: Intimate Partner Violence: Not on file Housing Stability: Not on file Family history: Family History Problem Relation Age of Onset Breast Cancer Mother 50 treated and alive, HTN Breast Cancer Maternal Aunt 40 Maternal great aunt Breast Cancer Maternal Grandmother 60 Breast Cancer Other 30 Maternal cousin Breast Cancer Other 30 Maternal cousin REVIEW OF SYSTEMS Per HPI PHYSICAL EXAMINATION Temp: [35.2 ?C (95.3 ?F)-37 ?C (98.6 ?F)] Heart Rate (monitor): [111-132] Pulse: [107-127] Resp: [18-33] BP: (121-146)/(95-104) MAP (mmHg): [108-117] Body mass index is 36.91 kg/m?. General: AO&; NAD Eyes: EOMI ENT: normal external inspection, JVD, MMM Lungs: crackles Cardio: tachycardic Abdomen: soft, NTP Extremities: pitting edema, faint distal and tibial pulses, cold feet bilaterally Skin: intact, warm, dry LABS: CBC WBC (10*3/?L) Date Value 11/22/2023 9.78 RBC (10*6/?L) Date Value 11/22/2023 3.45 (L) PLT (10*3/?L) Date Value 11/22/2023 246 HGB (g/dL) Date Value 11/22/2023 8.6 (L) HCT (%) Date Value 11/22/2023 28.9 (L) There are no current results on file for these tests and/or test for 1 year. There are no current results on file for these tests and/or test for 1 year. BMP NA (mmol/L) Date Value 11/22/2023 135 K (mmol/L) Date Value 11/22/2023 4.0 CALCIUM (mg/dL) Date Value 11/22/2023 6.7 (L) CL (mmol/L) Date Value 11/22/2023 108 BUN (mg/dL) Date Value 11/22/2023 20 CREATININE (mg/dL) Date Value 11/22/2023 0.48 (L) GLUCOSE (mg/dL) Date Value 11/22/2023 136 (H) CO2 TOTAL (mmol/L) Date Value 11/22/2023 20 (L) Hepatic Function Panel ALBUMIN (g/dL) Date Value 11/22/2023 3.1 (L) T PROTEIN (g/dL) Date Value 11/22/2023 5.6 (L) TOTAL BILI (mg/dL) Date Value 11/22/2023 0.8 BILI UNCON (mg/dL) Date Value 11/21/2015 0.2 BILI CONJ (mg/dL) Date Value 11/21/2015 0.0 ALT(SGPT) (U/L) Date Value 11/21/2015 18 ALTv (U/L) Date Value 11/22/2023 196 (H) AST(SGOT) (U/L) Date Value 11/22/2023 56 (H) ALK PHOS (U/L) Date Value 11/22/2023 282 (H) Coagulation Panel: Recent Labs 11/21/23 2325 11/22/23 0302 11/22/23 1446 PTINR 1.3 1.4 -- PTPAT 15.4* 15.2* -- APTTPAT 27 70* 60* ABG:There are no current results on file for these tests and/or test for 1 year. DM & HLD Panel: Recent Labs 11/22/23 0645 CHOL 89* LDL 46 HDL 28* TRIG 76 EKG/ECHO: 11/22/23 Left Ventricle: Left ventricle is dilated. Normal wall thickness. Severe global hypokinesis present. Apical akinesia. Severely reduced systolic function with a visually estimated EF of 15 - 20%. There is grade 2 diastolic dysfunction. Elevated left ventricular filling pressure. Mass present. There is a large apical LV thrombus measuring 1.7 x 1.5 cm. Right Ventricle: Right ventricle is moderately dilated. Severely reduced systolic function. TAPSE is 0.7 cm. Left Atrium: Left atrium is moderately dilated. IVC/SVC: IVC diameter is less than or equal to 21 mm and decreases less than 50% during inspiration; therefore the estimated right atrial pressure is intermediate (~8 mmHg). Tricuspid Valve: Trace transvalvular regurgitation. Insufficient tricuspid regurgitation jet to estimate RVSP . Pericardium: Trivial pericardial effusion present. No indication of cardiac tamponade. Additional Imaging: US ABDOMEN LIMITED Result Date: 11/22/2023 Impression: 1. Hepatomegaly and fatty infiltration of the liver. Slight nodularity of the hepatic capsule. No defined masses. 2. Previous cholecystectomy. 3. Nondiagnostic evaluation of the pancreas due to overlying bowel gas. Otherwise, Sonographically unremarkable right upper quadrant. RL: 1669 HS:Y CHEST PULMONARY ANGIOGRAM Result Date: 11/22/2023 1. Right lung lower lobe segmental pulmonary embolism. The patient is already on anticoagulation for lower extremity DVT. 2. Mild cardiomegaly. 3. Left adrenal nodule consider follow-up with elective contrast CT. XR SHOULDER 2+ VW RIGHT Result Date: 11/22/2023 Impression: 1. No acute osseous abnormality. 2. Chronic findings as detailed. RL: 1825 End of Report LOWER EXTREMITY VEIN WITH COMPRESSION BILATERAL (ONLY FOR RULE OUT DVT) Result Date: 11/22/2023 Impression: Nonocclusive thrombus in the right common femoral/greater saphenous vein. Critical Result: DVT Findings were discussed with nurse Merlyn Osullivan, who acknowledged receipt and understanding of the findings, at 11/22/2023 3:47 AM. RL: 1825 End of Report CHEST 1 VW Result Date: 11/21/2023 Impression: No consolidation or pleural effusion. No pneumothorax. RL: 2824 End of Report SSMENT/PLAN: Heather Turner is a 53 year old female admitted to the hospital with: Decompensated acute on chronic HFrEF 15-20% EF Cardiogenic shock NSTEMI Congestive hepatopathy Lactic acidosis LV thrombus HTN Iron deficiency anemia Patient in cardiogenic shock with lactic acidosis and congestive hepatopathy on milrinone and lasix. New LV thrombus identified on TTE, currently on heparin gtt. Negative [place] Criteria. Blood cultures NGTD. Received cefepime 1 dose. No immunologic phenomenon. Consider broad spectrum abx if symptomatic. Reported hx of cath in 2021 and did not have stent placement. Will continue to monitor. -Start milrinone 0.125 mcg -Lasix IV 40 mg TID -d/c losartan 25 mg -f/u blood cx -K>4 Mg>2 -c/w lipitor and asa -trend lactic acid, CMP -consider ischemic evaluation when stable -replete iron when euvolemic -titrate gdmt as tolerated Provoked partially occlusive PE affecting the RLL segmental arteries, PESI 135 Nonocclusive right common femoral vein and greater saphenous vein DVT COPD exacerbation Patient with PE/DVT on heparin gtt and concurrent COPD exacerbation receiving prednisone and duoneb. Procal negative. Patient not on abx -c/w heparin gtt, transition to Eliquis upon discharge -c/w prednisone EOT 11/25 and duoneb -f/u arterial duplex BLE -hypersal Bipolar disorder Anxiety Seizure disorder Neuropathy Chronic low back pain 2/2 lumbar spinal stenosis and cauda equina syndrome Hx of drug use: benzo, cocaine, thc, opiates, tobacco Reports she takes clonazepam 3-4 times a month for years. for years. She last used the medication 3 days ago. -Valium x 1 dose today -resume Depakote ,Cymbalta, mirtazapine -c/w Gabapentin NIDDM Currently A1c 6.3% Monitor sugars SSI Resume metformin upon discharge Pain: tylenol, norco Bowel Regimen: senna DVT Prophylaxis: hep gtt Code status: full Discharge Planning - medication reconciliation prior to discharge - Cardiac rehab - Heart failure clinic - titration of GDMT. - 2.7 cm Left adrenal nodule consider follow-up with elective contrast CT. - On CT: A 6 mm nodes noted in the right upper lobe. Mukesh Tabor MD Department of Internal Medicine 11/22/2023 15:16 Associated attestation - Cr Altamirano MD - 11/23/2023 2:18 PM CDT I personally examined the patient and agree with Dr. Tabor's note, assessment and plan as written. Please note corrections in my addendum. I actively participated in the decision-making process. I spent a total critical care time of 90 minutes. The patient was critically ill with organ failure due to cardiogenic shock and PE. The non-overlapping time spent for patient care includes: pre-Charting, obtaining and/or reviewing separately obtained history (Care Everywhere and our own records), performing a full medically appropriate examination and/or evaluation, counseling and educating patient/family/caregiver, ordering not only medications but tests and/or procedures, independently interpreting prior/current results and communicating them to the patient and/or relative, ordering referrals and/or communicating with other health daycare teacher (not separately reported), documenting clinical information in the electronic or other health record, and care coordination (not separately reported). 53 yo F with cardiogenic shock and PE Acute decompensated HFrEF NSTEMI Pulmonary embolism Polysubstance use LV thrombus COPD Elevated lactate- started on milrinone on 11/21 Continue milrinone Continue anticoagulation RHC/LHC today for BiV failure Cr Altamirano MD Grain Receiver [facility] Cardiology 11/23/23 [facility] 2023-11-22 02:28:50 MEDICINE [place] H&P PCP: PATIENT DOES NOT HAVE A PCP Date of Service: 11/21/2023 CHIEF COMPLAINT: SOB History of Present Illness Heather Turner is a 53 year old female with a PMH significant for HFrEF (~35% 05/2023), HTN, Smoker, COPD, chronic low back pain, depression presenting from [facility] ED due to SOB. Pt states her home pulse ox was reading 86% and was having trouble catching her breath. Associated sx include PETERSON, orthopnea, CP that is substernal, pressure-like, and non radiating. She says the SOB started earlier today with productive cough. Denies fevers or chills. No recent sick contacts. States she was treated for pneumonia at [facility] 2 weeks ago with levaquin and prednisone on discharge which she completed. She was hospitalized for about 6 days. Denies any prior cardiac stents. States she takes metoprolol, metformin, atorvastatin, albuterol, lasix 20 mg BID. Last seizure was 3 weeks ago, takes depakote. States daughter manages all of her medications and she is unable to reconcile all of her meds. Admits to marijuana and cocaine use 4 days ago. In ED noted to be afebrile, HR 124, RR 33, BP 133/96 satting 100% on 2 LNC. CXR with no consolidation or pleural effusion. Patient received morphine 4 mg x1, duonebs x2, solumedrol 125 mg x1, NS 500 cc, and started on heparin gtt. Pt states she cannot tolerate norco because it causes itching and requesting morphine. Labs notable for: Troponin 1.447 NT proBNP 8500 Sodium 134, alk phos 349, AST 63, ALT 263 WBC 13, hemoglobin 8.9 TSH 5.26, free T41.07 Negative for COVID and flu UDS positive for benzo, opiates, THC, cocaine Of note pt was recently hospitalized in 08/2023 at OSH for caudia equina rule out. At the time was noted to have lung nodules on CXR and TTE done to rule out endocarditis (unable to see study). Based on care everywhere, noted to have reduced EF 35% since last TTE 05/2023. Positive for cocaine previously as well. Last cath in 2021 at OSH without intervention. PAST MEDICAL HISTORY Past Medical History: Diagnosis Date Anxiety Extreme Bipolar disorder Breast pain 09/18/2015 Cauda equina compression 11/21/2023 diagnosed 08/2023 Congestive heart failure 2021 COPD (chronic obstructive pulmonary disease) Diverticulitis Epilepsy Hypertension [place] (myocardial infarction) 07/20/2007 Slipped disc Stomach cancer Substance abuse Marijuana daily-for anxiety Past Surgical History: Procedure Laterality Date ANTERIOR CERVICAL FUSION CHOLECYSTECTOMY HAND/FINGER SURGERY UNLISTED Bilateral 3 L hand, 3 R hand METATARSAL OSTEOTOMY Right 08/14/2015 Surgeon: Luis Jones Jr., ESTHER; [place] [facility] [place]OM[place] Family History Problem Relation Age of Onset Breast Cancer Mother 50 treated and alive, HTN Breast Cancer Maternal Aunt 40 Maternal great aunt Breast Cancer Maternal Grandmother 60 Breast Cancer Other 30 Maternal cousin Breast Cancer Other 30 Maternal cousin ALLERGIES Allergies Allergen Reactions Green Tea Other - See comments Seizures Diclofenac Hypertension Keppra [Levetiracetam] Other - See comments Makes seizures worse MEDICATIONS No current facility-administered medications on file prior to encounter. Current Outpatient Medications on File Prior to Encounter Medication Sig Dispense Refill Lacosamide (VIMPAT) 100 mg tablet Take 1 tablet by mouth in the morning and 1 tablet in the evening. 60 tablet 0 methocarbamoL 500 mg tablet Take 2 tablets by mouth 4 (four) times daily as needed for Pain (scale 7-10). 56 tablet 0 cyclobenzaprine 5 mg tablet Take 1 tablet by mouth in the morning and 1 tablet at noon and 1 tablet in the evening. 21 tablet 0 aspirin 81 mg chewable tablet Take 1 tablet by mouth in the morning. 30 tablet 5 atorvastatin 40 mg tablet Take 1 tablet by mouth at bedtime. 30 tablet 5 albuterol 2.5 mg /3 mL (0.083 %) nebulizer solution Inhale 3 mL every 4 (four) hours as needed for Wheezing or Shortness of Breath. 1 Each 0 dicyclomine 20 mg tablet Take 1 tablet by mouth 4 (four) times daily as needed for Abdominal pain. 20 tablet 0 proMETHazine 25 mg tablet Take 1 tablet by mouth every 6 (six) hours as needed for Nausea and Vomiting (N/V). 20 tablet 0 ondansetron 4 mg tablet Take 4 mg by mouth every 8 (eight) hours as needed. pantoprazole 40 mg EC tablet Take 40 mg by mouth daily. amLODIPine (NORVASC) 10 mg tablet Take 1 Tab by mouth daily. 90 Tab 1 carvedilol (COREG) 6.25 mg tablet Take 1 Tab by mouth 2 (two) times daily with meals. 60 Tab 3 lisinopril (PRINIVIL,ZESTRIL) 40 mg tablet Take 1 Tab by mouth daily. 90 Tab 1 loratadine (CLARITIN LIQUI-GEL) 10 mg capsule Take by mouth daily. MULTIVITAMIN ORAL Take 1 Tab by mouth daily. omega-3 fatty acids-vitamin E (FISH OIL) 1,000 mg capsule Take 1 g by mouth daily. SOCIAL HISTORY Social History Socioeconomic History Marital status: Spouse name: Mony Number of children: 0 Highest education level: GED or equivalent Tobacco Use Smoking status: Every Day Packs/day: 1.00 Years: 30.00 Additional pack years: 0.00 Total pack years: 30.00 Types: Cigarettes, Cigars Passive exposure: Current Smokeless tobacco: Never Substance and Sexual Activity Alcohol use: No Alcohol/week: 0.0 standard drinks of alcohol Drug use: Yes Types: Marijuana Comment: smokes marijuana daily Sexual activity: Yes Partners: Male Social Determinants of Health Financial Resource Strain: Medium Risk (08/01/2022) Overall Financial Resource Strain (CARDIA) Difficulty of Paying Living Expenses: Somewhat hard Food Insecurity: No Food Insecurity (08/01/2022) Hunger Vital Sign Worried About Running Out of Food in the Last Year: Never true Ran Out of Food in the Last Year: Never true Transportation Needs: No Transportation Needs (08/01/2022) PRAPARE - Transportation Lack of Transportation (Medical): No Lack of Transportation (Non-Medical): No Physical Activity: Inactive (08/01/2022) Exercise Vital Sign Days of Exercise per Week: 0 days Minutes of Exercise per Session: 0 min Social Connections: Unknown (08/01/2022) Social Connection and Isolation Panel [NHANES] Frequency of Communication with Friends and Family: More than three times a week Marital Status: REVIEW OF SYSTEMS See HPI PHYSICAL EXAMINATION Vitals: 11/21/23 2200 11/21/23 2230 11/21/23 2300 11/21/23 2315 BP: (!) 133/96 (!) 145/104 Pulse: 124 124 119 127 Resp: 22 (!) 33 23 22 Temp: TempSrc: SpO2: 100% 95% 98% 100% Weight: Height: Physical Exam Constitutional: Appearance: She is obese. She is ill-appearing. HENT: Head: Normocephalic and atraumatic. Mouth/Throat: Mouth: Mucous membranes are moist. Eyes: Extraocular Movements: Extraocular movements intact. Cardiovascular: Rate and Rhythm: Regular rhythm. Tachycardia present. Pulmonary: Breath sounds: Wheezing and rhonchi present. Abdominal: General: Bowel sounds are normal. Palpations: Abdomen is soft. Musculoskeletal: Cervical back: Normal range of motion. Comments: 2+ BLE edema; RLE> LLE Skin: General: Skin is warm and dry. Findings: Bruising present. Comments: Diffuse brusing noted over abdomen and arms Neurological: General: No focal deficit present. LABS - reviewed pertinent labs as below: See HPI IMAGING - reviewed, pertinent results as below: TTE 08/01/22 Left Ventricle Left ventricle is mildly dilated. Normal wall thickness. Mild global hypokinesis present. Mildly reduced systolic function with a visually estimated EF of 40 - 50%. There is pseudonormal diastolic dysfunction. Right Ventricle Right ventricle size is normal. Normal systolic function. Left Atrium Left atrium is mildly dilated. Right Atrium Right atrium size is normal. IVC/SVC IVC diameter is less than or equal to 21 mm and decreases greater than 50% during inspiration; therefore the estimated right atrial pressure is normal (~0-5 mmHg). Mitral Valve Mildly thickened leaflets. Mildly calcified leaflets. Trace transvalvular regurgitation. Tricuspid Valve Tricuspid valve structure is normal. Insufficient tricuspid regurgitation jet to estimate RVSP.Trace transvalvular regurgitation. RA pressure is 0-5 mmHg. Aortic Valve Not well visualized. Mild transvalvular regurgitation. Pulmonic Valve Not well visualized. Trace transvalvular regurgitation. Ascending Aorta Normal sized ascending aorta and aortic root. Pericardium No pericardial effusion. Interpretation Summary Left Ventricle: Left ventricle is mildly dilated. Normal wall thickness. Mild global hypokinesis present. Mildly reduced systolic function with a visually estimated EF of 40 - 50%. There is pseudonormal diastolic dysfunction. Right Ventricle: Right ventricle size is normal. Normal systolic function. Tricuspid Valve: Insufficient tricuspid regurgitation jet to estimate RVSP. RA pressure is 0-5 mmHg. Left Atrium: Left atrium is mildly dilated. Aortic Valve: Mild transvalvular regurgitation. EKG: ordered CHART REVIEW: pertinent information as below: Hospital Course 08/2023 (care everywhere) Heather Turner is 53 y.o. female with PMH of HTN, HF, COPD, ?seizure disorder (most recently been on Depakote but not taking now) C3-C4 ACDF and L3-L4 laminectomies (06/01/23) c/b chronic low back pain 2/2 lumbar spinal stenosis who was life flighted for symptoms c/f cauda equina syndrome. patient has had recurrent presentations for atypical pain, weakness, and incontinence. Complete spinal imaging has been completed at this presentation and structural etiologies for her symptoms ruled out. neurosurgery reccommended AGAINST repeat denise scans for recurrent presentations and signed off. ASSESSMENT/PLAN Heather Turner is a 53 year old female with PMH as listed above, admitted to the hospital with: NSTEMI HFrEF ~35% 05/2023 NYHA III/C HTN UDS Cocaine (positive) Normocytic Anemia Elevated AST, ALT Hyponatremia Pt presenting with NSTEMI in the setting of cocaine use. No recent ischemic cardiac workup but states has had cath around 2021 with no prior stents. Pt appears to be volume overloaded in the setting of HFrEF as well that has progressively worsened in the past year. Will need to reconcile medications and educate patient on GDMT due to various hospitalizations at different hospitals and poor compliance. Given acute onset of SOB, Tachycardia, tachypnea and mostly being bed bound also concerned for PE. - admit to white team - Start heparin gtt - trend troponin - TTE - LA - US BLE - low threshold for CTPE - Hold beta jennifer in setting of cocaine use - lasix 40 IV x1 - resume ASA, lipitor - EKG - iron, ferritin - K> 4, Mg> 2 - med rec with daughter in AM, many overlapping medications are inaccurate COPD exacerbation vs HFrEF exacerbation vs CAP Smoker NIDDM Pt is a concurrent smoker with wheezing, productive cough, but also has been treated for PNA recently with hx of pseudomonas in the past. Will treat empirically for CAP as well as COPD exacerbation, although CXR w/o consolidation. Recently on steroids as well, was still taking taper at home. Will initiate infectious workup. - start cefepime as well as prednisone - duonebs - induced sputum Cx, Bcx, legionella strep pneumo - smoking cessation - SSI - see above R shoulder pain WC bound since May Pt states she was dropped in tub while family was trying to transfer her - R shoulder xray - agressive PT/OT eventually Chronic Conditions Hx of Seizures Chronic Low back pain Urinary Retention Depression - c/w Depakote - c/w flomax Pain UncontrolledTylenol and Valmeyer Prophylaxis: DVT- heparin Stress Ulcer: pantoprazole Code Status: addressed: Full Code Cris Mcnally DO Internal Medicine [facility] Team Associated attestation - Ivis Mcdermott MD - 11/23/2023 10:40 AM CDT After discussion with Dr. Mcnally , I examined this patient 11/22/2023. I agree with fellow's note as written. The time spent was 75 minutes for patient care which includes: precharting by reviewing EKGs and prior blood work-up as well as monitor results, obtaining and reviewing her medical chart as well as prior encounters, performing a full comprehensive medical exam and evaluation, discussing a cardiac procedure, documenting clinical information onto this electronic medical chart and independently interpreting prior results with communicating these results to the patient. Ivis Mcdermott MD Grain Receiver Department of Internal Medicine Division of Cardiovascular Disease [facility] Procedure Notes Date/Time Note Provider Source 2023-11-23 15:17:41 Left Heart Cath/Coronary Angiography Date of Service: 11/23/2023 3:18 PM Indication/Diagnosis: heart failure Consent source: self Consent type: indications/complications discussed with patient/legal guardian; written consent obtained Time out completed: yes Aseptic technique: Chlorprep Local Anesthesia: 1% lidocaine without epinephrine Sedation: fentanyl 50 mcg, Versed 2 mg Access site: right radial artery, RIJ [place] 4.0 5fr 8 Fr IJ sheath [place] Closure Method: TR Band, manual pressure Sterile dressing: yes Complications: none Findings: Coronary dominance: right Left main: Short, patent LAD: Px patent, mid mild irregularities, distal reaches the apex D1: Small D2: Small D3: Small to medium sized patent LCX: Px patent, mid tortuous mild disease, continues as small AV groove artery OM1: High OM, large patent with mid 30% OM2: Large, tortuous, no significant disease OM3: Small to medium patent RCA: Dominant. Px patent with mild ectasia, followed by calcified 30 % before marginal take off, mid mild disease, PDA: Patent PLB: patent Right heart cath Pressure/mmhg RA 15 RV 49/17(18) PA 50/30(39) Pw 20 Saturation (%) RA 57% PA 59% AO 93% Cardiac output(L/min) Yovanny 6.68 Thermal 5.46 Cardiac index(L/min/m2) Yovanny 3.4 Thermal 2.78 PVR 3.4 [place] SVR 1265 Dynes Impression: Severely elevated right sided pressures Elevated left sided pressures Moderate pulm htn, mixed component Non obstructive coronary artery disease Plan: Plan discussed with primary team Dr. Tracy MD Faculty, was present for the entire procedure. [facility] Associated attestation - Cris Molina MD - 11/24/2023 7:50 AM CDT Post-Procedure Sedation Addendum Immediately prior to start of sedation, the patient was evaluated and there was no change from the pre-procedure evaluation. I was present and directed medical care. The patient underwent moderate sedation for the procedure. The medications administered were recorded in the MAR; oxygenation, ventilation and circulation were monitored continuously and were recorded in the EMR. I evaluated the patient after the procedure. The patient was evaluated immediately as recovering from sedation. Complications: None I agree with Dr. Woo's note as written. I was present supervised the fellows throughout the procedure. Findings discussed with the primary team (Dr. Altamirano). Coronary angiography/RHC revealing: Patent coronary arteries with non obstructive disease. Heavily calcified proximal, mid and distal RCA could harbor a stent, that (if present) is seemingly patent with no significant ISR. Severely elevated right sided filling pressure, moderate pulmonary hypertension (mixed component), elevated LV filling pressure (no LVEDP obtained due to presence of LV thrombus). Normal cardiac output. Low normal cardiac index (at a heart rate of ~ 120 bpm). Picture suggestive of right sided failure. Cris Molina MD justice professor. Division of cardiovascular medicine [facility] IM-CARDIOVASCULAR DISEASE [facility] Notes Date/Time Note Provider Source 2024-01-12 23:59:33 Pt given printed and verbal discharge instructions regarding Chest pain, encouraged hydration, Discussed ibuprofen and to take with food to avoid GI distress. Pt verbalized understanding of instructions, pt awake alert oriented, resp reg unlabored, skin w/d, color appropriate for race, moves all ext well,pt encouraged to follow up with pcp Advised to seek medical attention for new/prolonged/worsening of symptoms, No adverse reaction to meds given in ER noted upon discharge PIV d'cd, dressing to site, catheter in tact. 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 female with h/o CAD, LV thrombus(on Eliquis), CHF, BPD, Anxiety, now with chest and fall with "pain to right buttock." Past Medical History/Immunizations: Past Medical History: Diagnosis Date Anxiety Extreme Bipolar disorder Breast pain 09/18/2015 Cauda equina compression 11/21/2023 diagnosed 08/2023 Congestive heart failure 2021 COPD (chronic obstructive pulmonary disease) Diverticulitis Epilepsy Hypertension [place] (myocardial infarction) 07/20/2007 Slipped disc Stomach cancer Substance abuse Marijuana daily-for anxiety Tetanus received in last 5 years: Yes Allergies: Allergies Allergen Reactions Green Tea Other - See comments Seizures Diclofenac Hypertension Keppra [Levetiracetam] Other - See comments Makes seizures worse Past Social History: Tobacco Use Every Day; 1 pack/day; Smoked an average of 1 pack/day for 30.0 years; Types: Cigarettes, Cigars Passive Exposure: Current Smokeless Tobacco: Never used smokeless tobacco. Alcohol Use No. Drug Use Yes; Marijuana. Comments: smokes marijuana daily Sexual Activity Sexually active; Partners: Male. Past Surgical History: Past Surgical History: Procedure Laterality Date ANTERIOR CERVICAL FUSION CHOLECYSTECTOMY HAND/FINGER SURGERY UNLISTED Bilateral 3 L hand, 3 R hand METATARSAL OSTEOTOMY Right 08/14/2015 Surgeon: Luis Jones Jr., DPM; Location: [facility] OR [facility] TONSILLECTOMY Review of Systems: Review of Systems Constitutional: Negative. HENT: Negative. Eyes: Negative. Respiratory: Negative. Breasts: Negative. Cardiovascular: Positive for chest pain. Gastrointestinal: Negative. Genitourinary: Negative. Musculoskeletal: Pain to right buttock Skin: Negative. Neurological: Negative. Psychiatric/Behavioral: Negative. Endocrine: Endocrine negative Physical Exam: ED Triage Vitals [01/12/24 2206] Weight 81.2 kg (179 lb) Actual or estimated Height 1.6 m (5' 3") BP (!) 149/119 Pulse 109 Resp 24 Temp 37.3 ?C (99.2 ?F) Temp source Oral SpO2 98 % Measured on Room air Physical Exam Vitals and nursing note reviewed. Constitutional: General: She is not in acute distress. Appearance: Normal appearance. She is not ill-appearing, toxic-appearing or diaphoretic. Comments: Anxious appearing HENT: Head: Normocephalic. Nose: Nose normal. Mouth/Throat: Mouth: Mucous membranes are moist. Eyes: Pupils: Pupils are equal, round, and reactive to light. Cardiovascular: Rate and Rhythm: Tachycardia present. Pulses: Normal pulses. Heart sounds: Normal heart sounds. Pulmonary: Effort: Pulmonary effort is normal. Breath sounds: Normal breath sounds. Abdominal: Palpations: Abdomen is soft. Musculoskeletal: General: Normal range of motion. Cervical back: Normal range of motion. Skin: General: Skin is warm. Capillary Refill: Capillary refill takes less than 2 seconds. Neurological: General: No focal deficit present. Mental Status: She is alert and oriented to person, place, and time. Psychiatric: Mood and Affect: Mood normal. Behavior: Behavior normal. Radiology: XR PELVIS <3 VW Preliminary Result EXAM: XR PELVIS <3 VW HISTORY: fall, right buttock pain COMPARISON: None FINDINGS: Radiographs of the pelvis demonstrate no acute fracture or dislocation. The joint spaces are maintained. No soft tissue abnormality is seen. A linear opaque material projects over the left pelvis favored to be outside patient or less likely foreign body. IMPRESSION No acute bony abnormality. Preliminary Report Dictated by Resident: Yanique Gonzalez Lab Results: Lab Results CBC WITH DIFF - Abnormal Result Value Ref Range WBC 8.48 4.30 - 11.10 10*3/?L RBC 4.33 3.93 - 5.25 10*6/?L HGB 11.6 11.6 - 15.0 g/dL HCT 37.5 35.7 - 45.2 % MCV 86.6 80.6 - 95.5 fL MCH 26.8 25.9 - 32.8 pg MCHC 30.9 (*) 31.6 - 35.1 g/dL RDW-SD 59.0 (*) 39.0 - 49.9 fL RDW-CV 18.7 (*) 12.0 - 15.5 % PLT 394 (*) 166 - 358 10*3/?L MPV 8.5 (*) 9.5 - 12.9 fL NRBC/100 WBC 0.0 0.0 - 10.0 /100 WBCs NRBC x10 3 <0.01 10*3/?L GRAN MAT (NEUT) % 60.6 % IMM GRAN % 1.40 % LYMPH % 26.9 % MONO % 8.7 % EOS % 1.8 % BASO % 0.6 % GRAN MAT x10 3 (ANC) 5.14 1.88 - 7.09 10*3/uL IMM GRAN x10 3 0.12 (*) 0.00 - 0.06 10*3/uL LYMPH x10 3 2.28 1.32 - 3.29 10*3/uL MONO x10 3 0.74 0.33 - 0.92 10*3/uL EOS x10 3 0.15 0.03 - 0.39 10*3/uL BASO x10 3 0.05 0.01 - 0.07 10*3/uL COMP. METABOLIC PANEL (14672) - Abnormal NA 140 135 - 145 mmol/L K 3.7 3.5 - 5.0 mmol/L CL 103 98 - 108 mmol/L CO2 TOTAL 25 23 - 31 mmol/L AGAP 12 2 - 16 BUN 12 7 - 23 mg/dL GLUCOSE 143 (*) 70 - 110 mg/dL CREATININE 0.91 0.50 - 1.04 mg/dL TOTAL BILI 0.4 0.1 - 1.1 mg/dL CALCIUM 9.0 8.6 - 10.6 mg/dL T PROTEIN 7.7 6.3 - 8.2 g/dL ALBUMIN 4.2 3.5 - 5.0 g/dL ALK PHOS 93 34 - 122 U/L ALTv 9 5 - 35 U/L AST(SGOT) 18 13 - 40 U/L eGFR 76.5 mL/min/1.73m2 TROPONIN I - Normal TROPONIN I 0.004 <=0.034 ng/mL EKG: If EKG completed, see Procedure Note. Orders and Treatments: Orders Placed This Encounter Procedures XR PELVIS <3 VW Cbc with Diff Comp. Metabolic Panel (04001) Troponin I Orders Placed This Encounter Medications morpHINE (4 mg/mL) injection 6 mg ondansetron (ZOFRAN (PF)) injection 8 mg LORazepam (ATIVAN) tablet 1 mg First Provider Eval: ED Events Date/Time Event User Comments 01/12/242209 Medical Screening Begins RADHA WYATT MD -- 01/12/242209 First Provider Evaluation RADHA WYATT MD -- ED COURSE Diagnosis/Impression as of 01/12/24 2342 Chest pain, unspecified type Procedures: EKG-12 Lead ONCE Date/Time: 01/12/2024 10:56 PM Performed by: Radha Wyatt MD Authorized by: Radha Wyatt MD ECG interpreted by ED Physician in the absence of a nautical instrument mechanic: yes Previous ECG: Previous ECG: Unavailable Interpretation: Interpretation: abnormal Rate: ECG rate: 106 ECG rate assessment: tachycardic Rhythm: Rhythm: sinus tachycardia Ectopy: Ectopy: none QRS: QRS axis: Normal QRS intervals: Normal QRS conduction: normal ST segments: ST segments: Normal T waves: T waves: normal Q waves: Abnormal Q-waves: not present Other findings: Other findings: LAE MDM: Medical Decision Making Amount and/or Complexity of Data Reviewed Labs: ordered. Radiology: ordered. Risk Prescription drug management. Parenteral controlled substances. A) Chest Pain, Contusion-Right Buttock Disposition/Condition: ED Disposition None Discharge Medications: Patient's Medications START taking these medications No medications on file CONTINUE taking these medications which have NOT CHANGED APIXABAN 5 MG TABLET Take 2 tablets by mouth 2 (two) times daily for 3 days, THEN 1 tablet 2 (two) times daily for 90 days. Indications: history of deep vein thrombosis ASPIRIN 81 MG CHEWABLE TABLET Take 1 tablet by mouth in the morning. ATORVASTATIN 40 MG TABLET Take 0.5 tablets by mouth at bedtime. CYCLOBENZAPRINE 5 MG TABLET Take 1 tablet by mouth in the morning and 1 tablet at noon and 1 tablet in the evening. DIGOXIN 125 MCG TABLET Take 1 tablet by mouth in the morning. DIVALPROEX ER 500 MG 24 HR TABLET Take 2 tablets by mouth every 12 (twelve) hours. DULOXETINE 30 MG CAPSULE Take 1 capsule by mouth in the morning. EMPAGLIFLOZIN (JARDIANCE) 10 MG TABLET Take 1 tablet by mouth in the morning for 30 days. FUROSEMIDE 40 MG TABLET Take 1 tablet by mouth every morning and evening. GABAPENTIN 100 MG CAPSULE Take 1 capsule by mouth in the morning and 1 capsule at noon and 1 capsule in the evening. IPRATROPIUM-ALBUTEROL 0.5 MG-3 MG(2.5 MG BASE)/3 ML NEBULIZER SOLUTION Inhale 3 mL every 6 (six) hours as needed for Wheezing or Shortness of Breath. LACOSAMIDE (VIMPAT) 100 MG TABLET Take 1 tablet by mouth in the morning and 1 tablet in the evening. LISINOPRIL 2.5 MG TABLET Take 1 tablet by mouth in the morning. LORATADINE (CLARITIN LIQUI-GEL) 10 MG CAPSULE Take by mouth daily. METFORMIN 500 MG TABLET Take 1 tablet by mouth in the morning for 30 days. METOPROLOL SUCCINATE XL 25 MG 24 HR TABLET Take 0.5 tablets by mouth in the morning. MIRTAZAPINE 15 MG TABLET Take 1 tablet by mouth at bedtime. MULTIVITAMIN ORAL Take 1 Tab by mouth daily. OMEGA-3 FATTY ACIDS-VITAMIN E (FISH OIL) 1,000 MG CAPSULE Take 1 g by mouth daily. PREDNISONE 20 MG TABLET Take 2 tablets by mouth in the morning for 5 days. SPIRONOLACTONE 25 MG TABLET Take 1 tablet by mouth in the morning for 30 days. TAMSULOSIN 0.4 MG 24 HR CAPSULE Take 1 capsule by mouth in the morning for 90 days. START taking Modified Medications as Prescribed No medications on file STOP taking these medications No medications on file Follow-up: PCP and Cardiology Electronically signed by: Radha Wyatt MD 01/12/24 2962 [facility] 2024-01-12 16:22:00 TRANSITIONAL CARE MANAGEMENT ASSESSMENT 01/12/2024 Heather Turner [id number] Heather Turner is a 53 year old /White female was admitted on 01/09/24 to [facility] ICU. She was discharged on 01/10/24 with discharge disposition of HR- Routine Discharge. Admitting Physician: Darrick Altamirano Discharge Diagnosis: Hypotension No linked episodes TCM Ofv-[id number]-face outreach documentation: Care Transition CM made f/u call to pt post-discharge x2. No response and call went to voicemail. CM left a discreet message with purpose of call and CM's call back information. Discharge Assessment Chart Assessed: 01/12/24 TCM Outreach Completed: 01/12/24 Future Appointments: Veronique Carrillo RN [facility] 2024-01-12 11:40:32 Care Transition CM made f/u call to pt post-discharge. No response and call went to voicemail. CM left a discreet message with purpose of call and CM's call back information. Veronique Carrillo RN, BSN Stamp Collector-Transitions of Care [phone] On license of [facility] 2024-01-10 15:32:40 Problem: Discharge Planning Goal: Adequate for discharge 01/10/2024 1532 by Addis Bates RN Outcome: Resolved 01/10/2024 153 by Addis Bates RN Outcome: Adequate for discharge Goal: Effective communication 01/10/2024 1532 by Addis Bates RN Outcome: Resolved 01/10/2024 153 by Addis Bates RN Outcome: Adequate for discharge Problem: Falls, Risk of Goal: Absence of falls 01/10/2024 1532 by Addis Bates RN Outcome: Resolved 01/10/2024 153 by Addis Bates RN Outcome: Adequate for discharge Problem: Fluid Volume - Imbalanced Goal: Absence of signs and symptoms of imbalanced fluid volume 01/10/2024 1532 by Addis Bates RN Outcome: Resolved 01/10/2024 1532 by Addis Bates RN Outcome: Adequate for discharge Problem: Infection, Risk of or Actual Goal: Absence of infection 01/10/2024 1532 by Addis Bates RN Outcome: Resolved 01/10/2024 1532 by Addis Bates RN Outcome: Adequate for discharge Problem: Pain Goal: Control of pain at or below patient's documented comfort goal 01/10/2024 1532 by Addis Bates RN Outcome: Resolved 01/10/2024 1532 by Addis Bates RN Outcome: Adequate for discharge Goal: Reduction in pain sensation 01/10/2024 1532 by Addis Bates RN Outcome: Resolved 01/10/2024 1532 by Addis Bates RN Outcome: Adequate for discharge Problem: Respiratory Function - Impaired Goal: Able to cough effectively 01/10/2024 1532 by Addis Bates RN Outcome: Resolved 01/10/2024 1532 by Addis Bates RN Outcome: Adequate for discharge Goal: Adequate oxygenation 01/10/2024 1532 by Addis Bates RN Outcome: Resolved 01/10/2024 1532 by Addis Bates RN Outcome: Adequate for discharge Goal: Adequate work of breathing 01/10/2024 1532 by Addis Bates RN Outcome: Resolved 01/10/2024 1532 by Addis Bates RN Outcome: Adequate for discharge Problem: Skin integrity Impaired (Risk or Actual) Goal: Wound healing 01/10/2024 1532 by Addis Bates RN Outcome: Resolved 01/10/2024 1532 by Addis Bates RN Outcome: Adequate for discharge Goal: Prevention of new skin breakdown 01/10/2024 1532 by Addis Bates RN Outcome: Resolved 01/10/2024 1532 by Addis Bates RN Outcome: Adequate for discharge Problem: Tissue Perfusion - Altered, Risk of Goal: Hemodynamically stable 01/10/2024 1532 by Addis Bates RN Outcome: Resolved 01/10/2024 1532 by Addis Bates RN Outcome: Adequate for discharge Problem: Venous Thromboembolism, (actual or risk of) Goal: Absence of venous thromboembolism (Risk) 01/10/2024 1532 by Addis Bates RN Outcome: Resolved 01/10/2024 1532 by Addis Bates RN Outcome: Adequate for discharge Problem: Mobility - Impaired Goal: Able to achieve maximum mobility level 01/10/2024 1532 by Addis Bates RN Outcome: Resolved 01/10/2024 1532 by Addis Bates RN Outcome: Adequate for discharge Problem: Discharge Planning Goal: Adequate for discharge 01/10/2024 1532 by Addis Bates RN Outcome: Resolved 01/10/2024 1532 by Addis Bates RN Outcome: Adequate for discharge Goal: Adequate to move to next level of care 01/10/2024 1532 by Addis Bates RN Outcome: Resolved 01/10/2024 1532 by Addis Bates RN Outcome: Adequate for discharge Goal: Knowledge of medication management 01/10/2024 1532 by Addis Bates RN Outcome: Resolved 01/10/2024 1532 by Addis Bates RN Outcome: Adequate for discharge Problem: Pain Goal: Control of pain at or below patient's documented comfort goal 01/10/2024 1532 by Addis Bates RN Outcome: Resolved 01/10/2024 1532 by Addis Bates RN Outcome: Adequate for discharge Goal: Reduction in pain sensation 01/10/2024 153 by Addis Bates RN Outcome: Resolved 01/10/2024 1532 by Addis Bates RN Outcome: Adequate for discharge Addis Bates RN [facility] 2024-01-10 15:32:28 Problem: Discharge Planning Goal: Adequate for discharge Outcome: Adequate for discharge Goal: Effective communication Outcome: Adequate for discharge Problem: Falls, Risk of Goal: Absence of falls Outcome: Adequate for discharge Problem: Fluid Volume - Imbalanced Goal: Absence of signs and symptoms of imbalanced fluid volume Outcome: Adequate for discharge Problem: Infection, Risk of or Actual Goal: Absence of infection Outcome: Adequate for discharge Problem: Pain Goal: Control of pain at or below patient's documented comfort goal Outcome: Adequate for discharge Goal: Reduction in pain sensation Outcome: Adequate for discharge Problem: Respiratory Function - Impaired Goal: Able to cough effectively Outcome: Adequate for discharge Goal: Adequate oxygenation Outcome: Adequate for discharge Goal: Adequate work of breathing Outcome: Adequate for discharge Problem: Skin integrity Impaired (Risk or Actual) Goal: Wound healing Outcome: Adequate for discharge Goal: Prevention of new skin breakdown Outcome: Adequate for discharge Problem: Tissue Perfusion - Altered, Risk of Goal: Hemodynamically stable Outcome: Adequate for discharge Problem: Venous Thromboembolism, (actual or risk of) Goal: Absence of venous thromboembolism (Risk) Outcome: Adequate for discharge Problem: Mobility - Impaired Goal: Able to achieve maximum mobility level Outcome: Adequate for discharge Problem: Discharge Planning Goal: Adequate for discharge Outcome: Adequate for discharge Goal: Adequate to move to next level of care Outcome: Adequate for discharge Goal: Knowledge of medication management Outcome: Adequate for discharge Problem: Pain Goal: Control of pain at or below patient's documented comfort goal Outcome: Adequate for discharge Goal: Reduction in pain sensation Outcome: Adequate for discharge [facility] 2024-01-10 14:55:21 Problem: Discharge Planning Goal: Adequate for discharge Outcome: Adequate for discharge Goal: Effective communication Outcome: Adequate for discharge Problem: Falls, Risk of Goal: Absence of falls Outcome: Adequate for discharge Problem: Fluid Volume - Imbalanced Goal: Absence of signs and symptoms of imbalanced fluid volume Outcome: Adequate for discharge Problem: Infection, Risk of or Actual Goal: Absence of infection Outcome: Adequate for discharge Problem: Pain Goal: Control of pain at or below patient's documented comfort goal Outcome: Adequate for discharge Goal: Reduction in pain sensation Outcome: Adequate for discharge Problem: Respiratory Function - Impaired Goal: Able to cough effectively Outcome: Adequate for discharge Goal: Adequate oxygenation Outcome: Adequate for discharge Goal: Adequate work of breathing Outcome: Adequate for discharge Problem: Skin integrity Impaired (Risk or Actual) Goal: Wound healing Outcome: Adequate for discharge Goal: Prevention of new skin breakdown Outcome: Adequate for discharge Problem: Tissue Perfusion - Altered, Risk of Goal: Hemodynamically stable Outcome: Adequate for discharge Problem: Venous Thromboembolism, (actual or risk of) Goal: Absence of venous thromboembolism (Risk) Outcome: Adequate for discharge Problem: Mobility - Impaired Goal: Able to achieve maximum mobility level Outcome: Adequate for discharge Problem: Discharge Planning Goal: Adequate for discharge Outcome: Adequate for discharge Goal: Adequate to move to next level of care Outcome: Adequate for discharge Goal: Knowledge of medication management Outcome: Adequate for discharge Problem: Pain Goal: Control of pain at or below patient's documented comfort goal Outcome: Adequate for discharge Goal: Reduction in pain sensation Outcome: Adequate for discharge Wayne Merrill RN [facility] 2024-01-10 01:16:51 Problem: Discharge Planning Goal: Adequate for discharge Outcome: Progressing as expected Goal: Effective communication Outcome: Progressing as expected Problem: Falls, Risk of Goal: Absence of falls Outcome: Progressing as expected Problem: Fluid Volume - Imbalanced Goal: Absence of signs and symptoms of imbalanced fluid volume Outcome: Progressing as expected Problem: Infection, Risk of or Actual Goal: Absence of infection Outcome: Progressing as expected Problem: Pain Goal: Control of pain at or below patient's documented comfort goal Outcome: Progressing as expected Goal: Reduction in pain sensation Outcome: Progressing as expected Problem: Respiratory Function - Impaired Goal: Able to cough effectively Outcome: Progressing as expected Goal: Adequate oxygenation Outcome: Progressing as expected Goal: Adequate work of breathing Outcome: Progressing as expected Problem: Skin integrity Impaired (Risk or Actual) Goal: Wound healing Outcome: Progressing as expected Goal: Prevention of new skin breakdown Outcome: Progressing as expected Problem: Tissue Perfusion - Altered, Risk of Goal: Hemodynamically stable Outcome: Progressing as expected Problem: Venous Thromboembolism, (actual or risk of) Goal: Absence of venous thromboembolism (Risk) Outcome: Progressing as expected Problem: Mobility - Impaired Goal: Able to achieve maximum mobility level Outcome: Progressing as expected Problem: Discharge Planning Goal: Adequate for discharge Outcome: Progressing as expected Goal: Adequate to move to next level of care Outcome: Progressing as expected Goal: Knowledge of medication management Outcome: Progressing as expected Problem: Pain Goal: Control of pain at or below patient's documented comfort goal Outcome: Progressing as expected Goal: Reduction in pain sensation Outcome: Progressing as expected EMT Alexandria Walsh RN [facility] 2024-01-09 22:42:54 Patient admitted to IMU for diagnosis of pneumonia, elevated D-dimer, hypotension, chest pain. Patient agrees to admission, discussed plan of care with patient and family. Patient is awake, alert, oriented, resp reg unlabored, color appropriate for race, PIV intact x2. No adverse reaction to medications administered while in ED. Belongings with patient to unit. Report to BETH Reyez. [facility] 2024-01-09 22:35:43 Report given to BETH Reyez IMU [facility] 2024-01-09 20:04:51 Patent resting Sheri Harding RN [facility] 2024-01-09 16:09:08 Patient states: "I started having chest pain this morning" Reports history of [place], blood clots in heart, lung and legs, CHF. Malinda Andres RN [facility] 2024-01-09 16:07:00 Associated Order(s): EKG-12 Lead ROUTINE ONCE Pre-Procedure Diagnose(s): Chest pain, unspecified type Post-Procedure Diagnose(s): Chest pain, unspecified type [facility] Emergency Department Note Patient Name: Heather Turner Date of : 1970 53 year old female Treatment Room: [place] [address] Primary Care Physician: Lb Lieberman Patient Escorted by: Family [5] Mode of Arrival: Personal means [1] EMS Treatment Prior to ED Arrival: Travel and Exposure Screening: Symptoms Does patient have any of these symptoms?: (not recorded) Exposure Screening Has patient had contact with someone with a communicable disease in the last month?: (not recorded) Diseases exposed to:: (not recorded) Is Patient ?: (not recorded) Exposure Date: (not recorded) Chief Complaint: Chief Complaint Patient presents with Chest Pain History of Present Illness: Heather Turner is a 53 year old female who present to the ED with chest pain with SOB that started this morning. Hx of [place], PE and CHF. She rated her pain an 8 on a scale of 0 to 10 and described it as sharp. She was found sitting in the ED exam area. She appears well, not toxic and does not seem to be in any apparent distress at this time. Patient denies any abdomen, back or neck pains, dizziness, headache, fever, chills, cough, sore throat, dysphagia, dysuria, hematuria, hemoptysis, nausea, vomiting or diarrhea. 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 generalist used: No Past Medical History/Immunizations: Past Medical History: Diagnosis Date Anxiety Extreme Bipolar disorder Breast pain 09/18/2015 Cauda equina compression 11/21/2023 diagnosed 08/2023 Congestive heart failure 2021 COPD (chronic obstructive pulmonary disease) Diverticulitis Epilepsy Hypertension [place] (myocardial infarction) 07/20/2007 Slipped disc Stomach cancer Substance abuse Marijuana daily-for anxiety Allergies: Allergies Allergen Reactions Green Tea Other - See comments Seizures Diclofenac Hypertension Keppra [Levetiracetam] Other - See comments Makes seizures worse Past Social History: Tobacco Use Every Day; 1 pack/day; Smoked an average of 1 pack/day for 30.0 years; Types: Cigarettes, Cigars Passive Exposure: Current Smokeless Tobacco: Never used smokeless tobacco. Alcohol Use No. Drug Use Yes; Marijuana. Comments: smokes marijuana daily Sexual Activity Sexually active; Partners: Male. Past Surgical History: Past Surgical History: Procedure Laterality Date ANTERIOR CERVICAL FUSION CHOLECYSTECTOMY HAND/FINGER SURGERY UNLISTED Bilateral 3 L hand, 3 R hand METATARSAL OSTEOTOMY Right 08/14/2015 Surgeon: Luis Jones Jr., DPM; Location: [facility] OR [facility] TONSILLECTOMY Review of Systems: Review of Systems Constitutional: Negative. HENT: Negative. Eyes: Negative. Respiratory: Positive for shortness of breath. Negative for apnea, cough, choking, chest tightness, wheezing and stridor. Cardiovascular: Positive for chest pain. Negative for palpitations and leg swelling. Gastrointestinal: Negative. Genitourinary: Negative. Musculoskeletal: Negative. Skin: Negative. Neurological: Negative. Hematological: Negative for adenopathy. Bruises/bleeds easily. Physical Exam: ED Triage Vitals [01/09/24 1610] Weight 90.7 kg (200 lb) Actual or estimated Estimated by patient/family report Height 1.575 m (5' 2") BP 91/65 Pulse 86 Resp 16 Temp 37.7 ?C (99.9 ?F) Temp source Oral SpO2 100 % Measured on Room air Physical Exam Vitals and nursing note reviewed. Constitutional: General: She is not in acute distress. Appearance: Normal appearance. She is obese. She is not ill-appearing, toxic-appearing or diaphoretic. HENT: Head: Normocephalic. Right Ear: External ear normal. Left Ear: External ear normal. Nose: Nose normal. Mouth/Throat: Mouth: Mucous membranes are moist. Eyes: General: No scleral icterus. Right eye: No discharge. Left eye: No discharge. Conjunctiva/sclera: Conjunctivae normal. Cardiovascular: Rate and Rhythm: Normal rate. Pulses: Normal pulses. Heart sounds: Normal heart sounds. No murmur heard. No friction rub. No gallop. Pulmonary: Effort: Pulmonary effort is normal. No respiratory distress. Breath sounds: No stridor. Examination of the right-upper field reveals rhonchi. Examination of the left-upper field reveals rhonchi. Examination of the right-middle field reveals rhonchi. Examination of the left-middle field reveals rhonchi. Examination of the right-lower field reveals rhonchi. Examination of the left-lower field reveals rhonchi. Rhonchi present. No wheezing or rales. Chest: Chest wall: No tenderness. Abdominal: General: Bowel sounds are normal. There is no distension. Palpations: Abdomen is soft. There is no mass. Tenderness: There is no abdominal tenderness. There is no right CVA tenderness, left CVA tenderness, guarding or rebound. Hernia: No hernia is present. Musculoskeletal: General: No swelling, tenderness, deformity or signs of injury. Normal range of motion. Right lower leg: No edema. Left lower leg: No edema. Skin: General: Skin is warm and dry. Capillary Refill: Capillary refill takes less than 2 seconds. Coloration: Skin is not jaundiced or pale. Findings: No bruising, erythema, lesion or rash. Neurological: Mental Status: She is alert. Radiology: No orders to display Lab Results: Lab Results - No data to display EKG: If EKG completed, see Procedure Note. Orders and Treatments: Orders Placed This Encounter Procedures XR CHEST 1 VW CBC WITH DIFF TROPONIN I N-TERMINAL PRO-BNP COMP. METABOLIC PANEL (35508) D-DIMER Orders Placed This Encounter Medications aspirin tablet 325 mg morpHINE (4 mg/mL) injection 4 mg ondansetron (ZOFRAN (PF)) injection 4 mg First Provider Eval: ED Events Date/Time Event User Comments 01/09/24 1609 Medical Screening Begins OLENA DEL CASTILLO NP -- 01/09/24 160 First Provider Evaluation OLENA DEL CASTILLO NP -- ED COURSE Labs, chest x-ray, ECG, Aspirin, Zofran, Fentanyl, CT chest ED Course as of 01/09/242115 Sat Jan 09, [id number] Patient hand off to Lorelei HURST [JA] 1813 Impression: No consolidation or pleural effusion. No pneumothorax. [JA] 1730 D DIMER(!): 0.87 [JA] ED Course User Index [JA] Olena Del Castillo NP Diagnosis/Impression as of 01/09/242115 Chest pain, unspecified type Shortness of breath Elevated d-dimer Pneumonia due to infectious organism, unspecified laterality, unspecified part of lung Hypotension, unspecified hypotension type Procedures: EKG-12 Lead ROUTINE ONCE Date/Time: 01/09/2024 4:13 PM Performed by: Olena Del Castillo NP Authorized by: Olena Del Castillo NP ECG interpreted by ED Physician in the absence of a nautical instrument mechanic: yes Previous ECG: Previous ECG: Compared to current Similarity: Changes noted Comparison ECG info: Sinus Tach then NSR now Interpretation: Interpretation: normal Rate: ECG rate: 82 ECG rate assessment: normal Rhythm: Rhythm: sinus rhythm Ectopy: Ectopy: none QRS: QRS axis: Right QRS intervals: Normal QRS conduction: normal ST segments: ST segments: Normal T waves: T waves: non-specific Q waves: Abnormal Q-waves: not present MDM: Heather Turner is a 53 year old female who present to the ED with chest pain with SOB that started this morning. Hx of [place], PE and CHF. She rated her pain an 8 on a scale of 0 to 10 and described it as sharp. DDX: ACS CARDIAC ARRHYTHMIAS DEHYDRATION ELECTROLYTE ABNORMALITY PULMONARY EDEMA CHF EXACERBATION COPD PLEURAL EFFUSION PNEUMOTHORAX PE BRONCHITIS PNEUMONIA VIRAL SYNDROME LUNG MALIGNANCY Medical Decision Making Heather Turner is a 53 year old female who present to the ED with chest pain with SOB that started this morning. Hx of [place], PE and CHF. She rated her pain an 8 on a scale of 0 to 10 and described it as sharp. Problems Addressed: Chest pain, unspecified type: acute illness or injury Elevated d-dimer: acute illness or injury Shortness of breath: acute illness or injury Amount and/or Complexity of Data Reviewed Labs: ordered. Decision-making details documented in ED Course. Radiology: ordered. Decision-making details documented in ED Course. ECG/medicine tests: ordered. Decision-making details documented in ED Course. Risk OTC drugs. Prescription drug management. Parenteral controlled substances. Flowsheet Documentation: Scoring Tools: No data recorded Disposition/Condition: ED Disposition None Discharge Medications: Patient's Medications START taking these medications No medications on file CONTINUE taking these medications which have NOT CHANGED ALBUTEROL 2.5 MG /3 ML (0.083 %) NEBULIZER SOLUTION Inhale 3 mL every 4 (four) hours as needed for Wheezing or Shortness of Breath. APIXABAN 5 MG TABLET Take 2 tablets by mouth 2 (two) times daily for 3 days, THEN 1 tablet 2 (two) times daily for 90 days. Indications: history of deep vein thrombosis ASPIRIN 81 MG CHEWABLE TABLET Take 1 tablet by mouth in the morning. ATORVASTATIN 40 MG TABLET Take 1 tablet by mouth at bedtime. CYCLOBENZAPRINE 5 MG TABLET Take 1 tablet by mouth in the morning and 1 tablet at noon and 1 tablet in the evening. DICYCLOMINE 20 MG TABLET Take 1 tablet by mouth 4 (four) times daily as needed for Abdominal pain. DIGOXIN 125 MCG TABLET Take 1 tablet by mouth in the morning. DIVALPROEX ER 500 MG 24 HR TABLET Take 2 tablets by mouth every 12 (twelve) hours. DULOXETINE 30 MG CAPSULE Take 1 capsule by mouth in the morning. EMPAGLIFLOZIN (JARDIANCE) 10 MG TABLET Take 1 tablet by mouth in the morning for 30 days. FUROSEMIDE 40 MG TABLET Take 1.5 tablets by mouth every morning and evening for 60 days. GABAPENTIN 100 MG CAPSULE Take 1 capsule by mouth in the morning and 1 capsule at noon and 1 capsule in the evening. LACOSAMIDE (VIMPAT) 100 MG TABLET Take 1 tablet by mouth in the morning and 1 tablet in the evening. LISINOPRIL 2.5 MG TABLET Take 1 tablet by mouth in the morning. LORATADINE (CLARITIN LIQUI-GEL) 10 MG CAPSULE Take by mouth daily. METFORMIN 500 MG TABLET Take 1 tablet by mouth in the morning for 30 days. METOPROLOL SUCCINATE XL 25 MG 24 HR TABLET Take 0.5 tablets by mouth in the morning. MIRTAZAPINE 15 MG TABLET Take 1 tablet by mouth at bedtime. MULTIVITAMIN ORAL Take 1 Tab by mouth daily. OMEGA-3 FATTY ACIDS-VITAMIN E (FISH OIL) 1,000 MG CAPSULE Take 1 g by mouth daily. ONDANSETRON 4 MG TABLET Take 1 tablet by mouth every 8 (eight) hours as needed for Nausea and Vomiting (N/V). SPIRONOLACTONE 25 MG TABLET Take 1 tablet by mouth in the morning for 30 days. TAMSULOSIN 0.4 MG 24 HR CAPSULE Take 1 capsule by mouth in the morning for 90 days. START taking Modified Medications as Prescribed No medications on file STOP taking these medications No medications on file Follow-up: Electronically signed by: Olena Del Castillo NP 01/09/242004 Associated attestation - Siddharth Bull MD - 01/10/2024 12:21 AM CDT Addendum I was personally available for consultation in the Emergency Department during this encounter and patient evaluation by RUBY Berman MD, [facility] Emergency Medicine [facility] 2023-12-17 10:18:53 Care Transitions Nurse CM made f/u call to patient post-discharge. No answer, call went to voicemail. CM left discreet message with CM's call back information. CM will try again at a later time. MANSOOR Lindsey, RN, CCRN Stamp Collector, Transitions of Care [email or web address] Jodi Berg RN [facility] 2023-12-15 10:45:32 Problem: Respiratory Function - Impaired Goal: Able to cough effectively Outcome: Adequate for discharge Goal: Adequate oxygenation Outcome: Adequate for discharge Goal: Patent airway Outcome: Adequate for discharge Problem: Pain Goal: Control of pain at or below patient's documented comfort goal Outcome: Adequate for discharge Goal: Reduction in pain sensation Outcome: Adequate for discharge Problem: Discharge Planning Goal: Adequate for discharge Outcome: Adequate for discharge Goal: Effective communication Outcome: Adequate for discharge Delaney Laird RN [facility] 2023-12-15 05:41:00 Problem: Respiratory Function - Impaired Goal: Able to cough effectively 12/15/2023 0641 by Annette Mota RN Outcome: Progressing as expected 12/15/2023 0640 by Annette Mota RN Outcome: Progressing as expected Goal: Adequate oxygenation 12/15/2023 0641 by Annette Mota RN Outcome: Progressing as expected 12/15/2023 0640 by Annette Mota RN Outcome: Progressing as expected Goal: Patent airway 12/15/2023 0641 by Annette Mota RN Outcome: Progressing as expected 12/15/2023 0640 by Annette Mota RN Outcome: Progressing as expected Problem: Pain Goal: Control of pain at or below patient's documented comfort goal Outcome: Progressing as expected Goal: Reduction in pain sensation Outcome: Progressing as expected Problem: Discharge Planning Goal: Adequate for discharge Outcome: Progressing as expected Goal: Effective communication Outcome: Progressing as expected T [facility] 2023-12-14 18:20:42 Patient admitted to [facility] ADC 2215 for diagnosis of shortness of breath. Patient agrees to admission, discussed plan of care with patient and family. Patient is awake, A&Ox4, RR even and unlabored on RA. Color appropriate for race. PIV intact x1. No adverse reaction to medications administered while in ED. Belongings with patient to unit. [facility] 2023-12-14 18:19:06 Nurse Report Report given to BETH Romero. Chief complaint, assessment findings, infusion verify and orders reviewed. Plan of care discussed with patient and both nurses. Patient/family members verbalized understanding. Lisette Murphy RN [facility] 2023-12-14 14:54:55 Report given to Amy Murphy RN. Updated on patient's medical condition, history of present condition and plan of care. T Leo Hyde RN [facility] 2023-12-14 13:30:46 Patient arrived in wheelchair with c/o shortness of breath starting this morning. Patient attempted to try her albuterol at home with no success. Patient attempt to feel better with husbands oxygen. Started to complaining of reproducible chest pain approximately 2 hours ago. Hx: CHF Lisette Murphy RN [facility] 2023-12-14 13:24:00 AdmissionCare Guideline: Chest Pain - OBS, Observation Based on the indications selected for the patient, the bed status of Observation was determined to be MET The following indications were selected as present at the time of evaluation of the patient: - Chest pain (or other anginal equivalent) not classified as low risk for acute coronary syndrome, as indicated by 1 or more of the following: - Patient classified as intermediate risk or high risk for acute coronary syndrome (eg, via use of a clinical decision tool or risk calculator (eg, HEART score greater than 3)) - Pain persists despite emergency department care. AdmissionCare documentation entered by: Mj Bryan [facility] uShare, 27th edition, Copyright ? 2022 [facility] [employer] [facility] All Rights Reserved. [id number]:23-05:00 T [facility] 2023-12-03 18:26:32 Pt requesting to leave AMA, patient educated on risks, and benefits of leaving AMA. Patient continues to request to leave AMA. CCU notified of patients request. Patient educated on risk and benefits. AMA paperwork signed by patient. Duong Tello RN [facility] 2023-12-03 14:42:13 Problem: Respiratory Function - Impaired Goal: Adequate oxygenation Outcome: Progressing as expected Goal: Adequate work of breathing Outcome: Progressing as expected Problem: Falls, Risk of Goal: Absence of falls Outcome: Progressing as expected [facility] 2023-12-02 17:16:35 Report to Rad with [facility], care transferred Sheri Tompkins RN [facility] 2023-12-02 16:47:06 Nurse Report Report given to Duong CAMPOS at [facility], Chief complaint, assessment findings, infusion verify and orders reviewed. Sheri Tompkins RN [facility] 2023-12-02 16:40:00 Pt tolerating bipap, updated on status, skinw/d [facility] 2023-12-02 16:09:00 Placed on bedpan [facility] 2023-12-02 16:08:24 Report to Turner CAMPOS. 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 PT was recently admitted to [facility] ICU for PE, chf and cardiogenic shock from 11/20-11/27. PT states she took her home medications today including eliquis and asa. PT states she feels like her heart is coming out of her chest. PT states her son has been sick with a cold and she was recently around him. Past Medical History/Immunizations: Past Medical History: Diagnosis Date Anxiety Extreme Bipolar disorder Breast pain 09/18/2015 Cauda equina compression 11/21/2023 diagnosed 08/2023 Congestive heart failure 2021 COPD (chronic obstructive pulmonary disease) Diverticulitis Epilepsy Hypertension [place] (myocardial infarction) 07/20/2007 Slipped disc Stomach cancer Substance abuse Marijuana daily-for anxiety Tetanus received in last 5 years: Yes Allergies: Allergies Allergen Reactions Green Tea Other - See comments Seizures Diclofenac Hypertension Keppra [Levetiracetam] Other - See comments Makes seizures worse Past Social History: Tobacco Use Every Day; 1 pack/day; Smoked an average of 1 pack/day for 30.0 years; Types: Cigarettes, Cigars Passive Exposure: Current Smokeless Tobacco: Never used smokeless tobacco. Alcohol Use No. Drug Use Yes; Marijuana. Comments: smokes marijuana daily Sexual Activity Sexually active; Partners: Male. Past Surgical History: Past Surgical History: Procedure Laterality Date ANTERIOR CERVICAL FUSION CHOLECYSTECTOMY HAND/FINGER SURGERY UNLISTED Bilateral 3 L hand, 3 R hand METATARSAL OSTEOTOMY Right 08/14/2015 Surgeon: Luis Jones Jr., ESTHER; [place] [facility] [place]IL[place]OMY Review of Systems: Review of Systems Constitutional: Negative for fever. Respiratory: Positive for cough, chest tightness and shortness of breath. Cardiovascular: Positive for chest pain. Gastrointestinal: Negative for vomiting. Skin: Negative for wound. Physical Exam: ED Triage Vitals Weight 12/02/23 1306 90.7 kg (200 lb) Actual or estimated 12/02/23 1306 Estimated by patient/family report Height 12/02/23 1308 1.6 m (5' 3") BP 12/02/23 1306 (!) 89/72 Pulse 12/02/23 1306 100 Resp 12/02/23 1306 20 Temp 12/02/23 1308 37.3 ?C (99.1 ?F) Temp source 12/02/23 1308 Oral SpO2 12/02/23 1306 99 % Measured on 12/02/23 1306 Room air Physical Exam Constitutional: Appearance: Normal appearance. HENT: Head: Normocephalic. Cardiovascular: Rate and Rhythm: Normal rate. Pulmonary: Effort: Pulmonary effort is normal. Musculoskeletal: General: No deformity. Neurological: General: No focal deficit present. Mental Status: She is alert and oriented to person, place, and time. Psychiatric: Mood and Affect: Mood normal. Behavior: Behavior normal. Thought Content: Thought content normal. Radiology: CT CHEST PULMONARY ANGIOGRAM Final Result HISTORY: Chest pain, rule out P.E. TECHNIQUE: Contrast-enhanced 64-mutidetector CT scan of the chest was completed with intravenous injection of non ionic contrast medium. Subsequently numerous sagittal, coronal and MIP reformations were generated. FINDINGS: Comparison made with study. Previously detected right lower lobe segmental pulmonary embolism is barely appreciated at this time. No new pulmonary thromboemboli visualized. Triple-vessel coronary atherosclerosis again visualized. 4 mm nodule is seen in the right upper lung (14:65). 7 mm nodule is seen in the right upper lung (14:77). Additional nodules are seen in the right middle lobe (14:92 through 95). Calcified granuloma in the left upper lung noted. Minimal congestion is seen in the anterior basal segment of the left lower lung. Minimal obstructive lung disease noted in both lungs with small peripheral based emphysematous bulla on both sides. No pleural effusion or pericardial effusion. No enlarged hilar or mediastinal lymph nodes. No focal lesions visualized in the thyroid gland. Trachea and central bronchial airways appear normal. Irregular shaped 2.9 cm left adrenal gland nodule is noted. Cholecystectomy noted. Mild thoracic degenerative spondylosis noted. No compression fracture or aggressive bone lesions visualized. CONCLUSIONS: 1. Previously detected pulmonary emboli in right lower lobe show significant interval improvement with minimal residual luminal irregularity seen at this time. No new pulmonary thromboemboli. 2. Ill-defined right pulmonary nodules. Some of the nodules are new and some of the nodules seen previously have resolved. Therefore, etiology could be pulmonary infection/reactive airway disease. 3. Triple vessel coronary atherosclerosis. 4. 2.9 cm left adrenal gland nodule, an incidental nonfunctioning adenoma, essentially unchanged since November 2022 study. XR CHEST 1 VW Final Result HISTORY: Dyspnea. TECHNIQUE: Portable AP view of the chest is obtained. Comparison made with 11/21/2023 study. FINDINGS: No acute pneumonia. No pneumothorax or pleural effusion or pulmonary congestion detected. Mild cardiomegaly noted. Multilevel lower cervical ACDF surgical changes partially visualized. Mild degenerative changes noted in the right glenohumeral joint. CONCLUSIONS: Mild cardiomegaly. Lab Results: Lab Results CBC WITH DIFF - Abnormal Result Value Ref Range WBC 10.95 4.30 - 11.10 10*3/?L RBC 4.24 3.93 - 5.25 10*6/?L HGB 10.9 (*) 11.6 - 15.0 g/dL HCT 36.6 35.7 - 45.2 % MCV 86.3 80.6 - 95.5 fL MCH 25.7 (*) 25.9 - 32.8 pg MCHC 29.8 (*) 31.6 - 35.1 g/dL RDW-SD 68.9 (*) 39.0 - 49.9 fL RDW-CV 22.6 (*) 12.0 - 15.5 % PLT 379 (*) 166 - 358 10*3/?L MPV 9.1 (*) 9.5 - 12.9 fL NRBC/100 WBC 0.0 0.0 - 10.0 /100 WBCs NRBC x10 3 <0.01 10*3/?L GRAN MAT (NEUT) % 73.5 % IMM GRAN % 1.70 % LYMPH % 14.9 % MONO % 8.3 % EOS % 1.2 % BASO % 0.4 % GRAN MAT x10 3 (ANC) 8.05 (*) 1.88 - 7.09 10*3/uL IMM GRAN x10 3 0.19 (*) 0.00 - 0.06 10*3/uL LYMPH x10 3 1.63 1.32 - 3.29 10*3/uL MONO x10 3 0.91 0.33 - 0.92 10*3/uL EOS x10 3 0.13 0.03 - 0.39 10*3/uL BASO x10 3 0.04 0.01 - 0.07 10*3/uL COMP. METABOLIC PANEL (69150) - Abnormal NA 138 135 - 145 mmol/L K 3.8 3.5 - 5.0 mmol/L CL 106 98 - 108 mmol/L CO2 TOTAL 22 (*) 23 - 31 mmol/L AGAP 10 2 - 16 BUN 11 7 - 23 mg/dL GLUCOSE 103 70 - 110 mg/dL CREATININE 0.56 0.50 - 1.04 mg/dL TOTAL BILI 0.8 0.1 - 1.1 mg/dL CALCIUM 8.9 8.6 - 10.6 mg/dL T PROTEIN 7.3 6.3 - 8.2 g/dL ALBUMIN 3.9 3.5 - 5.0 g/dL ALK PHOS 147 (*) 34 - 122 U/L ALTv 34 5 - 35 U/L AST(SGOT) 30 13 - 40 U/L eGFR 110.7 mL/min/1.73m2 N-TERMINAL PRO-BNP - Abnormal NT-proBNP 3,420 (*) <=125 pg/mL AC ABG + LACTIC ACID - Abnormal PH 7.50 (*) 7.35 - 7.45 PCO2 27 (*) 35 - 45 mmHg PO2 HCO3 20 (*) 22 - 26 mEq/L BE -1.4 -3.0 - 3.0 mEq/L LACTIC ACID 1.99 0.50 - 2.20 mmol/L TROPONIN I - Normal TROPONIN I 0.020 <=0.034 ng/mL RAPID INFLUENZA A/B - Normal Rapid Influenza A Negative Negative Rapid Influenza B Negative Negative COVID-19 (ID NOW RAPID TESTING) - Normal SARS-CoV-2 Rapid ID NOW Not Detected Not Detected BLOOD CULTURE SCREEN BLOOD CULTURE SCREEN EKG: If EKG completed, see Procedure Note. Orders and Treatments: Orders Placed This Encounter Procedures CT CHEST PULMONARY ANGIOGRAM XR CHEST 1 VW Cbc with Diff Comp. Metabolic Panel (70422) Troponin I N-Terminal Pro-Bnp BLOOD CULTURE SCREEN BLOOD CULTURE SCREEN AC ABG + LACTIC ACID RAPID INFLUENZA A/B COVID-19 (ID NOW TESTING) Lab Only COVID Interpretation BI-PAP Orders Placed This Encounter Medications NaCl 0.9% (NS) bolus infusion 1,000 mL FENTanyl PF (SUBLIMAZE (PF)) injection 25 mcg iopamidol (ISOVUE 370-500 mL) injection 85 mL DISCONTD: NORepinephrine (LEVOPHED) 4 mg/250 mL in 0.9% NaCl infusion acetaminophen (OFIRMEV) IV piggyback 1,000 mg FENTanyl PF (SUBLIMAZE (PF)) injection 25 mcg First Provider Eval: ED Events Date/Time Event User Comments 12/02/23 1304 Medical Screening Begins CONNOR RENEE MD -- 12/02/23 1304 First Provider Evaluation CONNOR RENEE MD -- ED COURSE Diagnosis/Impression as of 12/02/23 1631 Other chest pain 13:23 will obtain labs, EKG, cxr, ct chest angio. Pt to receive ivf, analgesia, and states she took aspirin today. Procedures: EKG-12 Lead ROUTINE ONCE Date/Time: 12/02/2023 1:22 PM Performed by: Connor Renee MD Authorized by: Connor Renee MD Comments: NSR, no stemi, qtc 363 , LAE, HR 97 MDM: Medical Decision Making 53 yo F presents with dyspnea concern for CHF exacerbation, cardiogenic shock . Problems Addressed: Other chest pain: acute illness or injury Details: BNP 3420 ,pt started on bipap Amount and/or Complexity of Data Reviewed Independent Historian: spouse Labs: ordered. Details: Troponin wnl, bnp 3420. Radiology: ordered. ECG/medicine tests: ordered. Details: Nsr, no stemi, qtc 363, HR 97 Discussion of management or test interpretation with external provider(s): Dr. Simental of [facility] cardiology accepting to CCU. Risk Prescription drug management. Parenteral controlled substances. Decision regarding hospitalization. Flowsheet Documentation: Scoring Tools: No data recorded Disposition/Condition: ED Disposition None Discharge Medications: Patient's Medications START taking these medications No medications on file CONTINUE taking these medications which have NOT CHANGED ALBUTEROL 2.5 MG /3 ML (0.083 %) NEBULIZER SOLUTION Inhale 3 mL every 4 (four) hours as needed for Wheezing or Shortness of Breath. AMLODIPINE (NORVASC) 10 MG TABLET Take 1 Tab by mouth daily. APIXABAN 5 MG TABLET Take 2 tablets by mouth 2 (two) times daily for 3 days, THEN 1 tablet 2 (two) times daily for 90 days. Indications: history of deep vein thrombosis ASPIRIN 81 MG CHEWABLE TABLET Take 1 tablet by mouth in the morning. ATORVASTATIN 40 MG TABLET Take 1 tablet by mouth at bedtime. CARVEDILOL (COREG) 6.25 MG TABLET Take 1 Tab by mouth 2 (two) times daily with meals. CYCLOBENZAPRINE 5 MG TABLET Take 1 tablet by mouth in the morning and 1 tablet at noon and 1 tablet in the evening. DICYCLOMINE 20 MG TABLET Take 1 tablet by mouth 4 (four) times daily as needed for Abdominal pain. DIGOXIN 125 MCG TABLET Take 1 tablet by mouth in the morning. DIVALPROEX ER 500 MG 24 HR TABLET Take 2 tablets by mouth every 12 (twelve) hours. DULOXETINE 30 MG CAPSULE Take 1 capsule by mouth in the morning. FUROSEMIDE 40 MG TABLET Take 1 tablet by mouth every morning and evening. GABAPENTIN 100 MG CAPSULE Take 1 capsule by mouth in the morning and 1 capsule at noon and 1 capsule in the evening. LACOSAMIDE (VIMPAT) 100 MG TABLET Take 1 tablet by mouth in the morning and 1 tablet in the evening. LISINOPRIL 5 MG TABLET Take 1 tablet by mouth in the morning. LORATADINE (CLARITIN LIQUI-GEL) 10 MG CAPSULE Take by mouth daily. METFORMIN 500 MG TABLET Take 1 tablet by mouth in the morning. METHOCARBAMOL 500 MG TABLET Take 2 tablets by mouth 4 (four) times daily as needed for Pain (scale 7-10). METOPROLOL SUCCINATE XL 50 MG 24 HR TABLET Take 1 tablet by mouth in the morning. MIRTAZAPINE 15 MG TABLET Take 1 tablet by mouth at bedtime. MULTIVITAMIN ORAL Take 1 Tab by mouth daily. OMEGA-3 FATTY ACIDS-VITAMIN E (FISH OIL) 1,000 MG CAPSULE Take 1 g by mouth daily. ONDANSETRON 4 MG TABLET Take 1 tablet by mouth every 8 (eight) hours as needed for Nausea and Vomiting (N/V). SPIRONOLACTONE 25 MG TABLET Take 2 tablets by mouth in the morning. TAMSULOSIN 0.4 MG 24 HR CAPSULE Take 1 capsule by mouth in the morning for 90 days. START taking Modified Medications as Prescribed No medications on file STOP taking these medications No medications on file Follow-up: Electronically signed by: Connor Renee MD 12/02/23 1632 On license of [facility] 2023-12-01 10:36:39 TRANSITIONAL CARE MANAGEMENT ASSESSMENT 12/01/2023 Heather Turner [id number] Heather Turner is a 53 year old /White female was admitted on 11/21/[address] She was discharged on 11/28/23 with discharge disposition of HR- Routine Discharge. Admitting Physician: Cr Altamirano Discharge Diagnosis: Decompensated acute on chronic HFrEF 15-20% EF Cardiogenic shock NSTEMI 2/2 stress induced cardiomyopathy 2/2 PE and drug use No linked episodes TCM [id number]-face outreach documentation: Discharge Assessment Chart Assessed: 12/01/23 TCM Outreach Completed: 12/01/23 Do you have a few minutes to speak with me about how you are doing at home?: Yes (Dustin stated she feel ok) Discharge Instructions Do you understand your at-home instructions?: Yes Medications Have you filled your prescriptions and do you have them in your home? : No Medication Interventions?: (Patient stated she cannot afford the cost of $44. 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 to manager telecom .) Do you know how to take your medications?: Yes Supplies Did you receive applicable home medical supplies/equipment?: N/A Follow Up Appointment Has a follow up appointment been scheduled?: No May I assist with scheduling this appointment?: Patient has outside PCP (Patient stated she was told that her providers at at [facility] and will not be following [facility]) Do you have any questions about your follow up appointments?: No Are you able to get to your appointment? Who will be taking you?: Yes (Patient stated she has someone to take her) Home Health Assistance Has the home health nurse contacted you since you've been home?: N/A Survey - Recognition Is there anything you would like to share about your recent hospitalization, or anyone you would like to recognize?: No Do you have any suggestions for improvement?: No Do you have any other questions or concerns at this time?: No Future Appointments: Do you have any questions about your diagnosis? No Review reason for hospitalization and diagnosis: Decompensated acute on chronic HFrEF 15-20% EF Cardiogenic shock NSTEMI 2/2 stress induced cardiomyopathy 2/2 PE and drug use Are you having any worsening symptoms? No Do you know what symptoms to watch for, and when to call your doctor? No CM reviewed s/s of worsening heart failure Please give the patient contact numbers for our HF clinic or Discharging MD (Document contact information provided): Patient stated she has to follow up with [facility] Do you understand your discharge instructions? Yes Can you explain your Fluid restrictions? Yes Example: 1.5L total fluid/24 hr-Specify patient's restriction: less than 2L per day Assess patient's understanding of what happens if they do not follow this restriction: Sudden weight gain (more than 3 pounds in 1 day or 5 pounds in 1 week) * Trouble breathing at night, especially when you lie down (waking up short of breath, needing more pillows to breathe) * New or increased swelling of your legs, feet, ankles or abdomen (belly) * Shortness of breath at rest * Frequent coughing that doesn't go away * Feeling much more tired than usual, with simple activity * Irregular or rapid heartbeat * Weakness or lightheadedness Emphasize importance of adherence: Yes Can you explain your low sodium restriction? Yes Example: 2gm/day-Specify patient's restriction:less than 2000 mg per day Assess patient's understanding of what happens if they do not follow this restriction: Sudden weight gain (more than 3 pounds in 1 day or 5 pounds in 1 week) * Trouble breathing at night, especially when you lie down (waking up short of breath, needing more pillows to breathe) * New or increased swelling of your legs, feet, ankles or abdomen (belly) * Shortness of breath at rest * Frequent coughing that doesn't go away * Feeling much more tired than usual, with simple activity * Irregular or rapid heartbeat * Weakness or lightheadedness Emphasize importance of adherence: Yes Are you engaged in physical activity? Yes Encourage/Educate (Refer to discharge instructions for activity): as tolerated Were you able to pickle processor all of your medications? No unable to afford Do you understand how to take your medications?Yes Stress importance of taking all medications as prescribed and address any questions: yes Has HF follow up appointment been scheduled? No patient has to see external providers May I assist with scheduling this appointment? na Do you have any questions about your follow up appointments? No Stress importance of attending this appointment. Yes If for some reason appointment with HF Clinic is not within 7 days, please notify Nurse Program Coordinators and document outcome: na Do you have transportation to your follow up appointments? Yes Has the home health nurse contacted you since you've been home? N/A Ensure they have contact info for [place]: na Have you received your DME? N/A Do you have a scale? Yes Educate on daily weights, dry weight, weight log and what to do if they gain weight? Let your healthcare provider know if your weight goes up by more than 3 pounds in 1 day or 5 pounds in 1 week. This is a sign that you are retaining more fluid than you should be, which could lead to worsening heart failure. Do you have a BP/HR machine? Yes Educate on keeping a log: yes CM reviewed HF action plan and zone checks Heart Failure Action Plan and Zone Check Every Day Zone Check Weigh myself in the morning before breakfast, write it on my log Take my medicine as my doctor ordered every day Check for swelling in my feet, ankles, legs and stomach Keep the sodium (salt) intake to under 2000mg a day Keep the fluid intake to under 2000ml a day Get some exercise but also take rest periods Take my heart rate and blood pressure and record it on the vitals log Do not smoke, drink alcohol or use illegal drugs Decide which Zone you are in today! Green- All clear Yellow- Heading for trouble Red- In trouble! Green Zone: ALL CLEAR Target Zone No shortness of breath No weight gain more than 2 pounds in one day No swelling in my feet, ankles, legs or stomach No change in activity level No chest pain ACTION: follow daily routine listed above Yellow Zone: CAUTION Warning Zone Weight gain of 3 pounds in 1 day or 5 or more pounds in a week Short of breath Swelling in feet, ankles, legs, or stomach Feeling of fatigue, less energy Dry hacking cough Dizziness Needing more pillows to sleep comfortable, or having to sit upright to breathe easier ACTION: Call you nurse or doctor. You may need your medications adjusted Red Zone: Emergency Zone Short of breath at rest New or persistent chest pain Confused, cannot think clearly Heart racing Passing out, fainting ACTION: CALL YOUR DOCTOR IMMEDIATELY, if unable to reach, CALL 911 or go to the emergency room Madeline Mckinley RN [facility] 2023-11-30 10:41:04 TRANSITIONAL CARE MANAGEMENT ASSESSMENT 11/30/2023 Heather Turner [id number] Heather Turner is a 53 year old /White female was admitted on 11/21/[address] She was discharged on 11/28/23 with discharge disposition of HR- Routine Discharge. Admitting Physician: Cr Altamirano Discharge Diagnosis: Decompensated acute on chronic HFrEF 15-20% EF Cardiogenic shock NSTEMI 2/2 stress induced cardiomyopathy 2/2 PE and drug use No linked episodes TCM [id number]-face outreach documentation: Transition CM attempted to contact patient for post discharge follow up. CM left a message with male friend contact as he stated patient was asleep and not available. Future Appointments: Madeline Mckinley RN [facility] 2023-11-28 15:39:19 Problem: Bleeding, Risk of Goal: Absence of impaired coagulation signs and symptoms Outcome: Adequate for discharge Goal: Absence of active bleeding Outcome: Adequate for discharge Problem: Discharge Planning Goal: Adequate for discharge Outcome: Adequate for discharge Problem: Activity Intolerance Goal: Improved activity tolerance Outcome: Adequate for discharge Problem: Fluid Volume Excess Goal: Absence of fluid overload signs and symptoms Outcome: Adequate for discharge Problem: Pain Goal: Control of pain at or below patient's documented comfort goal Outcome: Adequate for discharge Goal: Reduction in pain sensation Outcome: Adequate for discharge Problem: Skin integrity Impaired (Risk or Actual) Goal: Prevention of new skin breakdown Outcome: Adequate for discharge Aliyah Francisco RN [facility] 2023-11-27 14:00:02 Problem: Discharge Planning Goal: Adequate for discharge 11/27/2023 135 by Merlyn Ndiaye RN Outcome: Progressing as expected 11/27/2023950 by Merlyn Ndiaye RN Outcome: Progressing as expected Problem: Bleeding, Risk of Goal: Absence of impaired coagulation signs and symptoms 11/27/2023 135 by Merlyn Ndiaye RN Outcome: Progressing as expected 11/27/2023950 by Merlyn Ndiaye RN Outcome: Progressing as expected Goal: Absence of active bleeding 11/27/20231358 by Merlyn Ndiaye RN Outcome: Progressing as expected 11/27/2023950 by Merlyn Ndiaye RN Outcome: Progressing as expected Problem: Activity Intolerance Goal: Improved activity tolerance 11/27/2023 135 by Merlyn Ndiaye RN Outcome: Progressing as expected 11/27/2023950 by Merlyn Ndiaye RN Outcome: Progressing as expected Problem: Fluid Volume Excess Goal: Absence of fluid overload signs and symptoms 11/27/2023 1359 by Merlyn Ndiaye RN Outcome: Progressing as expected 11/27/2023950 by Merlyn Ndiaye RN Outcome: Progressing as expected Problem: Fluid Volume Excess Goal: Absence of fluid overload signs and symptoms 11/27/2023 1359 by Merlyn Ndiaye RN Outcome: Progressing as expected 11/27/2023950 by Merlyn Ndiaye RN Outcome: Progressing as expected Problem: Pain Goal: Control of pain at or below patient's documented comfort goal 11/27/2023 135 by Merlyn Ndiaye RN Outcome: Progressing as expected 11/27/2023950 by Merlyn Ndiaye RN Outcome: Progressing as expected Goal: Reduction in pain sensation 11/27/2023 135 by Merlyn Ndiaye RN Outcome: Progressing as expected 11/27/2023950 by Merlyn Ndiaye RN Outcome: Progressing as expected Problem: Skin integrity Impaired (Risk or Actual) Goal: Prevention of new skin breakdown 11/27/2023 135 by Merlyn Ndiaye RN Outcome: Progressing as expected 11/27/2023950 by Merlyn Ndiaye RN Outcome: Progressing as expected Merlyn Ndiaye RN [facility] 2023-11-27 09:51:54 Problem: Bleeding, Risk of Goal: Absence of impaired coagulation signs and symptoms Outcome: Progressing as expected Goal: Absence of active bleeding Outcome: Progressing as expected Problem: Discharge Planning Goal: Adequate for discharge Outcome: Progressing as expected Problem: Activity Intolerance Goal: Improved activity tolerance Outcome: Progressing as expected Problem: Fluid Volume Excess Goal: Absence of fluid overload signs and symptoms Outcome: Progressing as expected Problem: Pain Goal: Control of pain at or below patient's documented comfort goal Outcome: Progressing as expected Goal: Reduction in pain sensation Outcome: Progressing as expected Problem: Skin integrity Impaired (Risk or Actual) Goal: Prevention of new skin breakdown Outcome: Progressing as expected On license of [facility] 2023-11-27 05:16:42 Problem: Bleeding, Risk of Goal: Absence of impaired coagulation signs and symptoms Outcome: Progressing as expected Goal: Absence of active bleeding Outcome: Progressing as expected Problem: Discharge Planning Goal: Adequate for discharge Outcome: Progressing as expected Problem: Activity Intolerance Goal: Improved activity tolerance Outcome: Progressing as expected Problem: Fluid Volume Excess Goal: Absence of fluid overload signs and symptoms Outcome: Progressing as expected Problem: Pain Goal: Control of pain at or below patient's documented comfort goal Outcome: Progressing as expected Goal: Reduction in pain sensation Outcome: Progressing as expected Problem: Skin integrity Impaired (Risk or Actual) Goal: Prevention of new skin breakdown Outcome: Progressing as expected T Mariely Wallace RN [facility] 2023-11-25 17:12:17 Problem: Bleeding, Risk of Goal: Absence of impaired coagulation signs and symptoms Outcome: Progressing as expected Goal: Absence of active bleeding Outcome: Progressing as expected Problem: Discharge Planning Goal: Adequate for discharge Outcome: Progressing as expected Problem: Activity Intolerance Goal: Improved activity tolerance Outcome: Progressing as expected Problem: Fluid Volume Excess Goal: Absence of fluid overload signs and symptoms Outcome: Progressing as expected Problem: Pain Goal: Control of pain at or below patient's documented comfort goal Outcome: Progressing as expected Goal: Reduction in pain sensation Outcome: Progressing as expected Problem: Skin integrity Impaired (Risk or Actual) Goal: Prevention of new skin breakdown Outcome: Progressing as expected On license of [facility] 2023-11-25 05:27:41 Problem: Bleeding, Risk of Goal: Absence of impaired coagulation signs and symptoms Outcome: Progressing as expected Goal: Absence of active bleeding Outcome: Progressing as expected Problem: Discharge Planning Goal: Adequate for discharge Outcome: Progressing as expected Problem: Activity Intolerance Goal: Improved activity tolerance Outcome: Progressing as expected Problem: Fluid Volume Excess Goal: Absence of fluid overload signs and symptoms Outcome: Not progressing as expected Note: Productive cough Problem: Pain Goal: Control of pain at or below patient's documented comfort goal Outcome: Progressing as expected Goal: Reduction in pain sensation Outcome: Not progressing as expected Note: Chronic pain issues related to history of laminectomy Problem: Skin integrity Impaired (Risk or Actual) Goal: Prevention of new skin breakdown Outcome: Progressing as expected Luda Vee RN [facility] 2023-11-24 18:52:11 Summary: [facility] [place] Note Spoke with Rich Barnesley from [facility] [place] at 18:12. Case #[id number]. Brice Jackson RN [facility] 2023-11-24 10:16:03 Problem: Bleeding, Risk of Goal: Absence of impaired coagulation signs and symptoms Outcome: Progressing as expected Goal: Absence of active bleeding Outcome: Progressing as expected Problem: Discharge Planning Goal: Adequate for discharge Outcome: Progressing as expected Problem: Activity Intolerance Goal: Improved activity tolerance Outcome: Progressing as expected Problem: Fluid Volume Excess Goal: Absence of fluid overload signs and symptoms Outcome: Progressing as expected Problem: Pain Goal: Control of pain at or below patient's documented comfort goal Outcome: Progressing as expected Goal: Reduction in pain sensation Outcome: Progressing as expected Problem: Skin integrity Impaired (Risk or Actual) Goal: Prevention of new skin breakdown Outcome: Progressing as expected T [facility] 2023-11-23 10:41:53 Problem: Bleeding, Risk of Goal: Absence of impaired coagulation signs and symptoms 11/23/2023 1041 by Brice Jackson RN Outcome: Progressing as expected 11/23/2023 1040 by Brice Jackson RN Outcome: Progressing as expected Goal: Absence of active bleeding 11/23/2023 1041 by Brice Jackson RN Outcome: Progressing as expected 11/23/2023 1040 by Brice Jackson RN Outcome: Progressing as expected Problem: Discharge Planning Goal: Adequate for discharge 11/23/2023 1041 by Brice Jackson RN Outcome: Progressing as expected 11/23/2023 1040 by Brice Jackson RN Outcome: Progressing as expected Problem: Activity Intolerance Goal: Improved activity tolerance 11/23/2023 1041 by Brice Jackson RN Outcome: Progressing as expected 11/23/2023 1040 by Brice Jackson RN Outcome: Progressing as expected Problem: Fluid Volume Excess Goal: Absence of fluid overload signs and symptoms 11/23/2023 1041 by Brice Jackson RN Outcome: Progressing as expected 11/23/2023 1040 by Brice Jackson RN Outcome: Progressing as expected Problem: Pain Goal: Control of pain at or below patient's documented comfort goal 11/23/2023 1041 by Brice Jackson RN Outcome: Progressing as expected 11/23/2023 1040 by Brice Jackson RN Outcome: Progressing as expected Goal: Reduction in pain sensation 11/23/2023 1041 by Brice Jackson RN Outcome: Progressing as expected 11/23/2023 1040 by Brice Jackson RN Outcome: Progressing as expected Problem: Skin integrity Impaired (Risk or Actual) Goal: Prevention of new skin breakdown 11/23/2023 1041 by Brice Jackson RN Outcome: Progressing as expected 11/23/2023 1040 by Brice Jackson RN Outcome: Progressing as expected [facility] 2023-11-23 10:40:04 Problem: Bleeding, Risk of Goal: Absence of impaired coagulation signs and symptoms Outcome: Progressing as expected Goal: Absence of active bleeding Outcome: Progressing as expected Problem: Discharge Planning Goal: Adequate for discharge Outcome: Progressing as expected Problem: Activity Intolerance Goal: Improved activity tolerance Outcome: Progressing as expected Problem: Fluid Volume Excess Goal: Absence of fluid overload signs and symptoms Outcome: Progressing as expected Problem: Pain Goal: Control of pain at or below patient's documented comfort goal Outcome: Progressing as expected Goal: Reduction in pain sensation Outcome: Progressing as expected Problem: Skin integrity Impaired (Risk or Actual) Goal: Prevention of new skin breakdown Outcome: Progressing as expected [facility] 2023-11-22 05:54:04 Problem: Bleeding, Risk of Goal: Absence of impaired coagulation signs and symptoms Outcome: Progressing as expected Goal: Absence of active bleeding Outcome: Progressing as expected Problem: Discharge Planning Goal: Adequate for discharge Outcome: Progressing as expected Problem: Activity Intolerance Goal: Improved activity tolerance Outcome: Progressing as expected Problem: Fluid Volume Excess Goal: Absence of fluid overload signs and symptoms Outcome: Progressing as expected Problem: Pain Goal: Control of pain at or below patient's documented comfort goal Outcome: Progressing as expected Goal: Reduction in pain sensation Outcome: Progressing as expected Problem: Skin integrity Impaired (Risk or Actual) Goal: Prevention of new skin breakdown Outcome: Progressing as expected T Hamlet Osullivan RN [facility] 2023-11-21 23:58:07 Patient transferred to [place] for diagnosis of chest pain, NSTEMI, COPD exacerbation Patient agrees to transfer/admit plan and verbalized understanding of plan of care, family aware of plan Patient awake alert, oriented, resp reg unlabored, skin w/d PIV patent, no s/s infiltration noted, heparin infusing No adverse reaction to medications given while in ED. Report given to [facility] personnel Nery Orellana RN [facility] 2023-11-21 23:55:09 Nurse Report Report given to BETH Zuleta in [place]. Chief complaint, assessment findings, infusion verify and orders reviewed. Plan of care discussed with nurse. Nery Orellana RN [facility] 2023-11-21 23:18:14 Associated Order(s): Critical Care Critical Care Performed by: Megan Rondon MD Authorized by: Megan Rondon MD Critical care provider statement: Critical care time (minutes): 60 Critical care time was exclusive of: Separately billable procedures and treating other patients and teaching time Critical care was necessary to treat or prevent imminent or life-threatening deterioration of the following conditions: Cardiac failure and respiratory failure Critical care was time spent personally by me on the following activities: Development of treatment plan with patient or surrogate, evaluation of patient's response to treatment, examination of patient, obtaining history from patient or surrogate, ordering and performing treatments and interventions, ordering and review of laboratory studies, ordering and review of radiographic studies, pulse oximetry, re-evaluation of patient's condition and review of old charts Care discussed with: admitting provider Comments: Due to a high probability of clinically significant, life threatening deterioration, the patient required my highest level of preparedness to intervene emergently and I personally spent this critical care time directly and personally managing the patient. This critical care time included obtaining a history; examining the patient; pulse oximetry; ordering and review of studies; arranging urgent treatment with development of a management plan; evaluation of patient's response to treatment; frequent reassessment; and, discussions with other providers. This critical care time was performed to assess and manage the high probability of imminent, life-threatening deterioration that could result in multi-organ failure. It was exclusive of separately billable procedures and treating other patients. On license of [facility] 2023-11-21 23:11:13 Pt c/o difficulty breathing at this time. Pt placed on 2L O2 NC for comfort. TNEY Diehl [facility] 2023-11-21 21:15:59 Summary: Triage CC: patient family states she had shortness of breath that started 4 hours ago, patient did pulse ox at home it it was 86%, patient has audible wet heard and states she cn't breath. Worse shortness of breath when the patient lays down, patient has a cough and can not get anything up. Patient is speaking in short sentences PMHx: see list PSH:see list MEDS:see list LMP: na Tetanus: not utd Awake, alert, oriented, resp reg unlabored, skin warm, color appropriate for race, moves all ext without difficulty, uses wheelchair but can transfer self Appears in mild distress Alma Gould RN [facility] 2023-11-21 21:07:00 EMERGENCY DEPARTMENT ENCOUNTER [facility] Patient Name: Heather Turner Date of : 1970 53 year old Exam Room:IN2/[facility] Primary Care Physician: PATIENT DOES NOT HAVE A PCP Pre- Hospital Patient Escorted by: Family [5] Mode of Arrival: Personal means [1] EMS Treatment Prior to ED Arrival: [employer] treatment: None ED Events Date/Time Event User Comments 11/21/232112 Medical Screening Begins MEGAN RONDON MD -- 11/21/232112 First Provider Evaluation MEGAN RONDON MD -- Chief Complaint Chief Complaint Patient presents with Shortness of Breath Chest Pain ED Triage Notes Alma Gould RN 11/21/2023 21:20 Summary:Triage CC: patient family states she had shortness of breath that started 4 hours ago, patient did pulse ox at home it it was 86%, patient has audible wet heard and states she cn't breath. Worse shortness of breath when the patient lays down, patient has a cough and can not get anything up. Patient is speaking in short sentences PMHx: see list PSH:see list MEDS:see list LMP: na Tetanus: not utd Awake, alert, oriented, resp reg unlabored, skin warm, color appropriate for race, moves all ext without difficulty, uses wheelchair but can transfer self Appears in mild distress HPI History provided by: Patient Chest Pain Pain location: Substernal area Pain quality: not aching and not dull Pain radiates to: Does not radiate Pain severity: Moderate Onset quality: Gradual Duration: 1 day Timing: Constant Relieved by: Nothing Worsened by: Nothing Associated symptoms: palpitations Associated symptoms: no abdominal pain, no cough, no dizziness, no fatigue, no fever, no headache, no nausea, no shortness of breath and no vomiting Risk factors: obesity Past Medical History / Immunizations Past Medical History: Diagnosis Date Anxiety Extreme Bipolar disorder Breast pain 09/18/2015 Congestive heart failure 2021 COPD (chronic obstructive pulmonary disease) Diverticulitis Epilepsy Hypertension [place] (myocardial infarction) 07/20/2007 Slipped disc Stomach cancer Substance abuse Marijuana daily-for anxiety Tetanus received in last 5 years: Unknown Childhood immunizations: Up-to-date Past Surgical History Past Surgical History: Procedure Laterality Date ANTERIOR CERVICAL FUSION CHOLECYSTECTOMY HAND/FINGER SURGERY UNLISTED Bilateral 3 L hand, 3 R hand METATARSAL OSTEOTOMY Right 08/14/2015 Surgeon: Luis Jones Jr., DPM; [place] [facility] [place]ILLECTOMY Allergies Allergies Allergen Reactions Green Tea Other - See comments Seizures Diclofenac Hypertension Keppra [Levetiracetam] Other - See comments Makes seizures worse Social History Tobacco Use Every Day; 1 pack/day for 30.00 years; Types: Cigarettes, Cigars Passive Exposure: Current Smokeless Tobacco: Never used smokeless tobacco. Alcohol Use No. Drug Use Yes; Marijuana. Comments: smokes marijuana daily Sexual Activity Sexually active; Partners: Male. Review of Systems Review of Systems Constitutional: Negative. Negative for chills, fatigue, fever and unexpected weight change. HENT: Negative. Eyes: Negative. Negative for discharge and itching. Respiratory: Negative. Negative for cough, chest tightness, shortness of breath and wheezing. Cardiovascular: Positive for chest pain and palpitations. Gastrointestinal: Negative. Negative for abdominal distention, abdominal pain, nausea and vomiting. Genitourinary: Negative. Negative for dysuria, urgency, frequency and flank pain. Musculoskeletal: Negative. Skin: Negative. Negative for color change, pallor and wound. Neurological: Negative. Negative for dizziness, syncope, light-headedness and headaches. Psychiatric/Behavioral: Negative. Negative for agitation and behavioral problems. All other systems reviewed and are negative. Endocrine: Endocrine negative Physical Exam ED Triage Vitals [11/21/232119] Weight 92.1 kg (203 lb) Actual or estimated Estimated by patient/family report Height 1.6 m (5' 3") BP (!) 121/95 Pulse 126 Resp 30 Temp 36.5 ?C (97.7 ?F) Temp source Oral SpO2 100 % Measured on Room air Physical Exam Vitals reviewed. Constitutional: Appearance: She is well-developed. She is obese. HENT: Head: Normocephalic and atraumatic. Nose: Nose normal. Eyes: Conjunctiva/sclera: Conjunctivae normal. Neck: Trachea: No tracheal deviation. Cardiovascular: Rate and Rhythm: Tachycardia present. Heart sounds: Normal heart sounds. No murmur heard. No friction rub. Pulmonary: Effort: Pulmonary effort is normal. No respiratory distress. Breath sounds: Examination of the right-upper field reveals rhonchi. Examination of the left-upper field reveals rhonchi. Examination of the right-middle field reveals rhonchi. Examination of the left-middle field reveals rhonchi. Examination of the right-lower field reveals rhonchi. Examination of the left-lower field reveals rhonchi. Rhonchi present. Abdominal: General: Bowel sounds are normal. There is no distension. Palpations: Abdomen is soft. Tenderness: There is no abdominal tenderness. There is no guarding or rebound. Musculoskeletal: General: Normal range of motion. Cervical back: Normal range of motion and neck supple. Skin: General: Skin is warm and dry. Neurological: Mental Status: She is alert and oriented to person, place, and time. Psychiatric: Behavior: Behavior normal. Thought Content: Thought content normal. Judgment: Judgment normal. Labs Lab Results CBC WITH DIFF - Abnormal Result Value Ref Range WBC 13.10 (*) 4.30 - 11.10 10*3/?L RBC 3.46 (*) 3.93 - 5.25 10*6/?L HGB 8.9 (*) 11.6 - 15.0 g/dL HCT 29.8 (*) 35.7 - 45.2 % MCV 86.1 80.6 - 95.5 fL MCH 25.7 (*) 25.9 - 32.8 pg MCHC 29.9 (*) 31.6 - 35.1 g/dL RDW-SD 69.4 (*) 39.0 - 49.9 fL RDW-CV 22.9 (*) 12.0 - 15.5 % PLT 241 166 - 358 10*3/?L MPV 9.8 9.5 - 12.9 fL NRBC/100 WBC 3.7 0.0 - 10.0 /100 WBCs NRBC x10 3 0.48 10*3/?L SEG % 76 33 - 76 % BAND % 5 (*) 0 - 1 % LYMPH % 13 (*) 14 - 54 % MONO % 6 (*) 0 - 4 % ANC 10.62 (*) 1.88 - 7.09 10*3/uL ELLIPTO/OVAL 2+ (*) (none) POLYCHROMASIA 2+ 2+ HYPERSEG NEUTS Present (*) (none) PLT ESTIMATE Normal Normal COMP. METABOLIC PANEL (56933) - Abnormal NA 134 (*) 135 - 145 mmol/L K 3.9 3.5 - 5.0 mmol/L CL 100 98 - 108 mmol/L CO2 TOTAL 28 23 - 31 mmol/L AGAP 6 2 - 16 BUN 21 7 - 23 mg/dL GLUCOSE 123 (*) 70 - 110 mg/dL CREATININE 0.56 0.50 - 1.04 mg/dL TOTAL BILI 0.9 0.1 - 1.1 mg/dL CALCIUM 8.4 (*) 8.6 - 10.6 mg/dL T PROTEIN 6.5 6.3 - 8.2 g/dL ALBUMIN 3.7 3.5 - 5.0 g/dL ALK PHOS 349 (*) 34 - 122 U/L ALTv 263 (*) 5 - 35 U/L AST(SGOT) 63 (*) 13 - 40 U/L eGFR 110.7 mL/min/1.73m2 TROPONIN I - Abnormal TROPONIN I 0.447 (*) <=0.034 ng/mL N-TERMINAL PRO-BNP - Abnormal NT-proBNP 8,500 (*) <=125 pg/mL AMYLASE - Normal FERNANDO 79 35 - 110 U/L FREE T4 - Normal FREE T4 1.07 0.78 - 2.20 ng/dL: RAPID INFLUENZA A/B - Normal Rapid Influenza A Negative Negative Rapid Influenza B Negative Negative COVID-19 (ID NOW RAPID TESTING) - Normal SARS-CoV-2 Rapid ID NOW Not Detected Not Detected LIPASE - Normal LIPASE 138 0 - 220 U/L URINALYSIS URINE DRUG (IMMUNOASSAY) - COMPREHENSIVE DRUG SCREEN W/O REFLEX THYROID STIMULATING HORMONE PROTHROMBIN TIME / INR ACTIVATED PARTIAL THRMPLAS DAVID Imaging XR CHEST 1 VW Final Result Exam: Chest (1 View), 11/21/2023 9:15 PM. Ordering Physician: MEGAN RONDON. History: Chest pain. Technique: One view of the chest. Comparison: 12/11/2022. Findings: Cardiac silhouette is moderately enlarged. There is no pneumothorax. There is no consolidation or pleural effusion. Stable mild diffuse interstitial opacities are noted. Pleural and diaphragmatic contours are normal. Changes of anterior cervical discectomy and fusion are seen. IMPRESSION Impression: No consolidation or pleural effusion. No pneumothorax. RL: [id number] End of Report Orders and Treatments Orders Placed This Encounter Procedures Critical Care XR CHEST 1 VW CBC WITH DIFF COMP. METABOLIC PANEL (51493) AMYLASE TROPONIN I N-TERMINAL PRO-BNP URINALYSIS URINE DRUG (IMMUNOASSAY) - COMPREHENSIVE DRUG SCREEN W/O REFLEX Free T4 Thyroid Stimulating Hormone RAPID INFLUENZA A/B COVID-19 (ID NOW TESTING) Lipase Lab Only COVID Interpretation Prothrombin Time / INR aPTT aPTT (for use with Heparin Infusion) Orders Placed This Encounter Medications ipratropium-albuteroL (DUONEB) 0.5 mg-3 mg(2.5 mg base)/3 mL nebulizer solution 3 mL ipratropium-albuteroL (DUONEB) 0.5 mg-3 mg(2.5 mg base)/3 mL nebulizer solution 3 mL NaCl 0.9% (NS) bolus infusion 500 mL methylprednisolone sod succ (SOLU-MEDROL) injection 125 mg acetaminophen (TYLENOL) tablet 975 mg ondansetron (ZOFRAN (PF)) injection 4 mg morpHINE (4 mg/mL) injection 4 mg HEPARIN SODIUM (PORCINE) 1,000 UNIT/ML BOLUS ACS ORDER SET heparin (1,000 unit/mL, 10 mL vial) for Rebolusing heparin 25,000 Units/250 mL (Premixed Bag) in 0.45 % NS Procedures EKG Time 2116 Rate 127 Sinus tachycardia Right axis No acute ischemia Abnormal EKG Notes & MDM Patient was evaluated for an emergency medical condition related to Shortness of Breath and Chest Pain DDX Pneumonia Bronchitis ACS ED Course as of 11/21/232321 Sat November 21, 2023 2312 Transfer initiated with PPC [DN] ED Course User Index [DN] Megan Rondon MD Diagnosis/Impression as of 11/21/23 2322 Chest pain, unspecified type Tachycardia Acute cough Anemia, unspecified type NSTEMI (non-ST elevated myocardial infarction) COPD exacerbation Elevated liver enzymes Medical Decision Making Problems Addressed: Acute cough: acute illness or injury Anemia, unspecified type: acute illness or injury Chest pain, unspecified type: acute illness or injury COPD exacerbation: acute illness or injury Elevated liver enzymes: acute illness or injury NSTEMI (non-ST elevated myocardial infarction): acute illness or injury Tachycardia: acute illness or injury Amount and/or Complexity of Data Reviewed Labs: ordered. Decision-making details documented in ED Course. Radiology: ordered and independent interpretation performed. Decision-making details documented in ED Course. ECG/medicine tests: ordered and independent interpretation performed. Decision-making details documented in ED Course. Risk OTC drugs. Prescription drug management. Parenteral controlled substances. Decision regarding hospitalization. Limitations to patient care and compliance: none. Assessment/Summary: The patient is a 53-year-old female who presents for chest pain shortness of breath. She continues to smoke despite having coronary disease and COPD. She was wheezing when she came in. She was given breathing treatments and steroids. EKG did not demonstrate a STEMI. She had sinus tach with no signs of acute ischemia. Troponin 0.44. She was given morphine for pain. She started on a heparin bolus and drip. Chest x-ray did not demonstrate any acute process. The patient appears to have an NSTEMI and a COPD exacerbation. She will be transferred down to [place] to the [facility] team in the cardiology department for further inpatient management. History, physical exam findings, results of visit, differential diagnosis, medication regimens and plan of future care have been considered. Additional MDM may be found in the ED course. Differential diagnosis considered and final disposition made based on information gathered during evaluation and may not be completely ruled out or specifically listed. Vital signs were rechecked before final disposition. Diagnosis Final diagnoses: [R07.9] Chest pain, unspecified type (Primary) [R00.0] Tachycardia [R05.1] Acute cough [D64.9] Anemia, unspecified type [I21.4] NSTEMI (non-ST elevated myocardial infarction) [J44.1] COPD exacerbation [R74.8] Elevated liver enzymes Disposition & Follow Up ED Disposition None Patient's Medications START taking these medications No medications on file CONTINUE taking these medications which have NOT CHANGED ALBUTEROL 2.5 MG /3 ML (0.083 %) NEBULIZER SOLUTION Inhale 3 mL every 4 (four) hours as needed for Wheezing or Shortness of Breath. AMLODIPINE (NORVASC) 10 MG TABLET Take 1 Tab by mouth daily. ASPIRIN 81 MG CHEWABLE TABLET Take 1 tablet by mouth in the morning. ATORVASTATIN 40 MG TABLET Take 1 tablet by mouth at bedtime. CARVEDILOL (COREG) 6.25 MG TABLET Take 1 Tab by mouth 2 (two) times daily with meals. CYCLOBENZAPRINE 5 MG TABLET Take 1 tablet by mouth in the morning and 1 tablet at noon and 1 tablet in the evening. DICYCLOMINE 20 MG TABLET Take 1 tablet by mouth 4 (four) times daily as needed for Abdominal pain. LACOSAMIDE (VIMPAT) 100 MG TABLET Take 1 tablet by mouth in the morning and 1 tablet in the evening. LISINOPRIL (PRINIVIL,ZESTRIL) 40 MG TABLET Take 1 Tab by mouth daily. LORATADINE (CLARITIN LIQUI-GEL) 10 MG CAPSULE Take by mouth daily. METHOCARBAMOL 500 MG TABLET Take 2 tablets by mouth 4 (four) times daily as needed for Pain (scale 7-10). MULTIVITAMIN ORAL Take 1 Tab by mouth daily. OMEGA-3 FATTY ACIDS-VITAMIN E (FISH OIL) 1,000 MG CAPSULE Take 1 g by mouth daily. ONDANSETRON 4 MG TABLET Take 4 mg by mouth every 8 (eight) hours as needed. PANTOPRAZOLE 40 MG EC TABLET Take 40 mg by mouth daily. PROMETHAZINE 25 MG TABLET Take 1 tablet by mouth every 6 (six) hours as needed for Nausea and Vomiting (N/V). START taking Modified Medications as Prescribed No medications on file STOP taking these medications No medications on file Megan Rondon Jr., MD Clinical Grain Receiver [facility] Emergency Department [employer] is used frequently and may produce errors. Promptly contact for obvious discrepancies. Megan Rondon MD 11/21/233 [facility] 2023-09-11 11:34:02 Chief Complaint Patient presents with Follow-up Hospitalization Krissy Cannon LVN [facility] 2023-08-12 16:08:34 Bryan spoke to patient and patient decided to leave AMA. AMA form signed by patient and attached to paperwork. Patient in stable condition with AMA. IV line removed and patient was assisted onto wheelchair and moved to the lobby. Patient called her prior to leaving room and will be picking up patient. ME Dumont RN [facility] 2023-08-12 15:56:21 Patient requesting to talk to provider - provider aware. Patient refused tylenol as she said medication does not improve her condition and she does not want to throw it up. Patient also refusing blood draw at this time. [facility] 2023-08-12 14:50:00 Patient's name and verified with patient. No chief complaint on file. Patient moved to room via wheelchair due to nature of complain. Patient is conscious and alert, with normal/unlabored breathing, and normal color/tone for ethnicity -oriented to name, time, place, and situation. GCS 15. Patient reports she has been out of her medication for ~1 weeks. Says she had a seizure yesterday; fell and hit her chest . Complaining of chest pain at this time. Pain is reproducible. Patient denies nausea, vomiting, shortness of breath, fever, chills and diarrhea. Says that her seizures are usually provoked by pain. Past Medical History: Diagnosis Date Anxiety Extreme Bipolar disorder Breast pain 09/18/2015 COPD (chronic obstructive pulmonary disease) Diverticulitis Epilepsy Hypertension [place] (my[place] infarction) 07/20/2007 Slipped disc Stomach cancer Substance abuse Marijuana daily-for anxiety Allergies noted in chart. Vitals obtained. Assessment performed. IV in place and patent. Placed on continuous spo2/cardiac monitoring, HR 106 Bed low and locked, secured with two rails, call light within reach. Belongings at bedside. Patient aware of plan of care. Steph Dumont RN [facility] 2023-08-12 14:17:22 Patient had witnessed seizure like activity. Bryan, at bedside. Patient stopped seizure activity and had no postictal phase. Patient coherent, alert and oriented/answering all questions appropriately. [facility] 2023-08-12 13:45:33 Patient here for chest pain that started approximately 1 hour ago. Patient had seizure like activity in the vehicle while attempting to get patient out of the car, patient had no post ictal phase. Patient c/o substernal chest pain and jaw pain. [facility] Jasvir Reaves RN [facility] 2023-08-12 13:42:00 [facility] Emergency Department Note Patient Name: Heather Turner Date of : 1970 53 year old female Treatment Room: IN3/IN3 Primary Care Physician: PATIENT DOES NOT HAVE A PCP Patient Escorted by: Family [5] Mode of Arrival: Personal means [1] EMS Treatment Prior to ED Arrival: [employer] treatment: None Travel and Exposure Screening: Symptoms Does patient have any of these symptoms?: (not recorded) Exposure Screening Has patient had contact with someone with a communicable disease in the last month?: (not recorded) Diseases exposed to:: (not recorded) Is Patient ?: (not recorded) Exposure Date: (not recorded) Chief Complaint: No chief complaint on file. History of Present Illness: Heather Turner is a 53 year old female with seizure like activity. Had seizure in ED at time of evaluation. Semiology of figure four pointing, left gaze preference, tachycardia 145, unresponsive, GTC movements. Spontaneously aborted. No post ictal phase or tongue injury. States she heard nurses saying it was psych during seizure. Past Medical History/Immunizations: Past Medical History: Diagnosis Date Anxiety Extreme Bipolar disorder Breast pain 09/18/2015 COPD (chronic obstructive pulmonary disease) Diverticulitis Epilepsy Hypertension [place] (myocardial infarction) 07/20/2007 Slipped disc Stomach cancer Substance abuse Marijuana daily-for anxiety Tetanus received in last 5 years: No Childhood immunizations: Up-to-date Allergies: Allergies Allergen Reactions Green Tea Other - See comments Seizures Diclofenac Hypertension Keppra [Levetiracetam] Other - See comments Makes seizures worse Past Social History: Tobacco Use Every Day; 1 pack/day for 30.00 years; Types: Cigarettes, Cigars Passive Exposure: Current Smokeless Tobacco: Never used smokeless tobacco. Alcohol Use No. Drug Use Yes; Marijuana. Comments: smokes marijuana daily Sexual Activity Sexually active; Partners: Male. Past Surgical History: Past Surgical History: Procedure Laterality Date ANTERIOR CERVICAL FUSION CHOLECYSTECTOMY HAND/FINGER SURGERY UNLISTED Bilateral 3 L hand, 3 R hand METATARSAL OSTEOTOMY Right 08/14/2015 Surgeon: Luis Jones Jr., ESTHER; Location: [facility] OR [facility] TONSILLECTOMY Review of Systems: Review of Systems Physical Exam: ED Triage Vitals [08/12/23 1347] Weight 81.6 kg (180 lb) Actual or estimated Height 1.575 m (5' 2") BP (!) 140/102 Pulse 114 Resp 22 Temp 37.2 ?C (99 ?F) Temp source Oral SpO2 100 % Measured on Room air Physical Exam Radiology: No orders to display Lab Results: Lab Results CBC WITH DIFF - Abnormal Result Value Ref Range WBC 8.36 4.30 - 11.10 10*3/?L RBC 4.23 3.93 - 5.25 10*6/?L HGB 11.8 11.6 - 15.0 g/dL HCT 37.6 35.7 - 45.2 % MCV 88.9 80.6 - 95.5 fL MCH 27.9 25.9 - 32.8 pg MCHC 31.4 (*) 31.6 - 35.1 g/dL RDW-SD 50.8 (*) 39.0 - 49.9 fL RDW-CV 15.8 (*) 12.0 - 15.5 % PLT 418 (*) 166 - 358 10*3/?L MPV 8.6 (*) 9.5 - 12.9 fL NRBC/100 WBC 0.0 0.0 - 10.0 /100 WBCs NRBC x10 3 <0.01 10*3/?L GRAN MAT (NEUT) % 74.0 % IMM GRAN % 0.40 % LYMPH % 14.5 % MONO % 8.1 % EOS % 2.0 % BASO % 1.0 % GRAN MAT x10 3 (ANC) 6.19 1.88 - 7.09 10*3/uL IMM GRAN x10 3 0.03 0.00 - 0.06 10*3/uL LYMPH x10 3 1.21 (*) 1.32 - 3.29 10*3/uL MONO x10 3 0.68 0.33 - 0.92 10*3/uL EOS x10 3 0.17 0.03 - 0.39 10*3/uL BASO x10 3 0.08 (*) 0.01 - 0.07 10*3/uL COMP. METABOLIC PANEL (76210) - Abnormal NA 140 135 - 145 mmol/L K 4.1 3.5 - 5.0 mmol/L CL 111 (*) 98 - 108 mmol/L CO2 TOTAL 20 (*) 23 - 31 mmol/L AGAP 9 2 - 16 BUN 10 7 - 23 mg/dL GLUCOSE 101 70 - 110 mg/dL CREATININE 0.64 0.50 - 1.04 mg/dL TOTAL BILI 0.4 0.1 - 1.1 mg/dL CALCIUM 8.4 (*) 8.6 - 10.6 mg/dL T PROTEIN 7.1 6.3 - 8.2 g/dL ALBUMIN 4.0 3.5 - 5.0 g/dL ALK PHOS 82 34 - 122 U/L ALTv 13 5 - 35 U/L AST(SGOT) 21 13 - 40 U/L eGFR 107.1 mL/min/1.73m2 LACTIC ACID WHOLE BLOOD - Normal LACTIC ACID 1.56 0.50 - 2.20 mmol/L URINALYSIS TROPONIN I EKG: If EKG completed, see Procedure Note. Orders and Treatments: Orders Placed This Encounter Procedures Cbc with Diff Comp. Metabolic Panel (93369) Urinalysis Lactic Acid Whole Blood Troponin I Orders Placed This Encounter Medications lacosamide (VIMPAT) 100 mg in NaCl 0.9% (NS) 50 mL piggyback acetaminophen (TYLENOL) tablet 1,000 mg First Provider Eval: ED Events Date/Time Event User Comments 08/12/23 1345 Medical Screening Begins MJ BRYAN -- 08/12/23 1345 First Provider Evaluation MJ BRYAN -- ED COURSE ED Course as of 08/12/23 1605 ThuAug 12, 2023 1601 Lactic normal. Patient requesting to leave prior to treatment complete. Discussed risks of leaving. [PS] ED Course User Index [PS] Mj Bryan Diagnosis/Impression as of 08/12/23 1605 Seizure Chest pain, unspecified type Procedures: Procedures MDM: Medical Decision Making Heather Turner is a 53 year old female with seizure vs PNES. Needs EEG and further evaluation regarding etiology of symptoms. Vimpat load in ED. EKG with Sinus Tachycardia. Age indeterminate infarct. No ST segment elevations or depressions. Patient left AMA. Problems Addressed: Chest pain, unspecified type: acute illness or injury Seizure: acute illness or injury with systemic symptoms Amount and/or Complexity of Data Reviewed Labs: ordered. Risk OTC drugs. Parenteral controlled substances. Flowsheet Documentation: Scoring Tools: No data recorded Disposition/Condition: ED Disposition ED Disposition AMA Condition Stable Comment -- Discharge Medications: Patient's Medications START taking these medications No medications on file CONTINUE taking these medications which have NOT CHANGED ALBUTEROL 2.5 MG /3 ML (0.083 %) NEBULIZER SOLUTION Inhale 3 mL every 4 (four) hours as needed for Wheezing or Shortness of Breath. AMLODIPINE (NORVASC) 10 MG TABLET Take 1 Tab by mouth daily. ASPIRIN 81 MG CHEWABLE TABLET Take 1 tablet by mouth in the morning. ATORVASTATIN 40 MG TABLET Take 1 tablet by mouth at bedtime. CARVEDILOL (COREG) 6.25 MG TABLET Take 1 Tab by mouth 2 (two) times daily with meals. CYCLOBENZAPRINE 5 MG TABLET Take 1 tablet by mouth in the morning and 1 tablet at noon and 1 tablet in the evening. DICYCLOMINE 20 MG TABLET Take 1 tablet by mouth 4 (four) times daily as needed for Abdominal pain. LACOSAMIDE (VIMPAT) 100 MG TABLET Take 1 tablet by mouth in the morning and 1 tablet in the evening. LISINOPRIL (PRINIVIL,ZESTRIL) 40 MG TABLET Take 1 Tab by mouth daily. LORATADINE (CLARITIN LIQUI-GEL) 10 MG CAPSULE Take by mouth daily. METHOCARBAMOL 500 MG TABLET Take 2 tablets by mouth 4 (four) times daily as needed for Pain (scale 7-10). MULTIVITAMIN ORAL Take 1 Tab by mouth daily. OMEGA-3 FATTY ACIDS-VITAMIN E (FISH OIL) 1,000 MG CAPSULE Take 1 g by mouth daily. ONDANSETRON 4 MG TABLET Take 4 mg by mouth every 8 (eight) hours as needed. PANTOPRAZOLE 40 MG EC TABLET Take 40 mg by mouth daily. PROMETHAZINE 25 MG TABLET Take 1 tablet by mouth every 6 (six) hours as needed for Nausea and Vomiting (N/V). START taking Modified Medications as Prescribed No medications on file STOP taking these medications No medications on file Follow-up: Contact information for follow-up Yehuda Arcos MD Specialty: PN-NEUROLOGY [facility] AND [address] [id number] [facility] Specialty: Emergency Medicine [address] [place] [id number] Instructions: If symptoms worsen as documented in the discharge Electronically signed by: Mj Bryan DO 08/12/23 1605 Mj Bryan DO 08/12/23 1605 [facility]
[2024-04-02 10:34] LABS: PT Prothrombin Time 11.9 SECONDS (9.4-12.5); Protime INR 1.06
[2024-04-02 10:37] LABS: Absolute Basophils 0.1 K/uL (0-0.5); Absolute Eosinophils 0.1 K/uL (0-0.5); Absolute Lymphocytes (CBC) 1.4 K/uL (0.7-4.9); Absolute Monocytes 0.5 K/uL (0.1-1.3); Absolute Neutrophil 5.3 K/uL (1.8-8.0); Eosinophils % 0.9 % (0-4.4); Hematocrit 36.5 % (36.0-45.0); Hemoglobin 11.6 g/dL (12.0-15.0); Lymphocytes % 19.4 % (15.3-44.8); MCH 24.6 pg (27.0-35.0); MCHC 31.7 g/dL (32.0-36.0); MCV 77.6 fL (80-100); MPV 6.2 fL (7.6-11.3); Monocytes % 6.3 % (3.3-12.3); Neutrophils % 72.4 % (41.7-73.7); Platelets 541 thou/uL (152-406); RBC Red Blood Cell Count 4.71 M/uL (3.86-4.86)
[2024-04-02] MEDS ORDERED: LORazepam 2 MG/ML VIAL ONE (10:43)
[2024-04-02] MEDS ORDERED: DIVALPROEX DR 250 MG TAB PO ONE (10:44)
[2024-04-02] MEDS ORDERED: VALPROATE NA 500 MG/5 ML INJ IV ONE (10:44)
[2024-04-02] MEDS ORDERED: NA CHLORIDE 0.9% 1,000 ML ONE (10:45)
[2024-04-02 10:49] LABS: Albumin 3.4 g/dL (3.4-5.0); Albumin/Globulin Ratio 0.9 (1.1-1.8); Alkaline Phosphatase 110 U/L (45-117); Anion Gap 9.8 mEq/L (5.0-15.0); BUN Blood Urea Nitrogen 6 mg/dL (7-18); Bicarbonate 23 mEq/L (21-32); Bilirubin Total 0.2 mg/dL (0.2-1.0); Glomerular Filtration Rate 105 ml/min (=/>90); Glucose Level 107 mg/dL (74-106); Lipase 21 U/L (13-75); Magnesium 1.9 mg/dL (1.6-2.4); NT PRO-BNP 1386 pg/mL (<125); Potassium 3.8 mEq/L (3.5-5.1); Protein, Total 7.4 g/dL (6.4-8.2); Sodium Level 137 mEq/L (136-145); Troponin High Sensitivity 10.4 pg/mL (<58.9)
[2024-04-02 10:53] LABS: ALT/SGPT < 14 U/L (13-56); AST/SGOT < 10 U/L (15-37); Bilirubin Direct < 0.2 mg/dL (0-0.2); Valproic Acid (Depakene) Level < 3.0 mcg/mL (50.0-100.0)
--- NOTE | 2024-04-02 11:09 | RAD REPORT ---
EXAM DESCRIPTION: [facility] Single View04/02/2024 10:56 am CLINICAL HISTORY: cough COMPARISON: December 2023 FINDINGS: The lungs appear clear of acute infiltrate. The heart is normal size IMPRESSION: No acute abnormalities displayed
--- NOTE | 2024-04-02 12:06 | RAD REPORT ---
EXAM DESCRIPTION: CT - Abdomen Pelvis W Contrast - 04/02/2024 11:37 am CLINICAL HISTORY: Abdominal pain COMPARISON: December TECHNIQUE: Computed axial tomography of the abdomen pelvis was obtained. 100 cc Isovue-300 was admin istered intravenously. Oral contrast was not requested which limits evaluation of bowel and appendix All CT scans are performed using dose optimization technique as appropriate and may include automated exposure control or mA/KV adjustment according to patient size. FINDINGS: The liver, spleen, pancreas, right adrenal gland and left kidney appear unremarkable. Tiny nonobstructing right renal calculus 2.6 centimeter left adrenal mass unchanged from 2020 likely an adenoma. No follow-up Cholecystectomy There is no evidence of diverticulitis. Normal appendix No adnexal mass. Vague low-density within the uterus IMPRESSION: Vague low-density within the uterus may be insignificant, fibroid or endometrial thicken ing. Non emergent pelvic ultrasound recommended
[2024-04-02] MEDS ORDERED: ONDANSETRON 4 MG/2 ML VIAL ONE (12:14)
[2024-04-02 12:24] LABS: Specific Gravity > 1.030 (1.005-1.030); Urine Bacteria None Seen /HPF (<20); Urine Bilirubin NEGATIVE (Negative); Urine Blood Negative (Negative); Urine Clarity Clear (Clear); Urine Color Light-Yellow (Yellow); Urine Culture Reflex Order NOT NEEDED; Urine Glucose NEGATIVE (Negative); Urine Ketones NEGATIVE (Negative); Urine Microscopic Reflex YN ORDER UMIC; Urine Mucus Slight /HPF (None Seen); Urine Nitrite NEGATIVE (Negative); Urine Protein TRACE (Negative); Urine RBC None Seen /HPF (None Seen); Urine Urobilinogen Normal (Normal); Urine WBC <5 /HPF (<5); Urine pH 6.5 (5.0-7.0)
--- NOTE | 2024-04-02 12:24 | EDPHYS ---
Physician Documentation [facility] Name: Heather Coon Age: 54 yrs Sex: Female : 1970 Arrival Date: 04/02/2024 Time: 09:50 Bed 20 Private MD: Derrick Mota HPI: 04/02 12:12 This 54 yrs old Female presents to ER via EMS with complaints of Seizure. fabrice 12:12 The patient presents with a history of multiple seizures, a total of 2. Character of fabrice seizure(s): Loss of consciousness: it is not known if the patient experienced loss of consciousness, Motor activity: generalized, shaking all over, Incontinence: none, Apnea: the patient did not experience apnea, Circulation: the patient did not experience evidence of pulse disturbance. Seizure onset: just prior to arrival, this morning. Context: the seizure(s) was witnessed, by family. Seizure Hx: Cause: unknown, Seizure medications: valproic acid. Associated injury: The patient did not suffer any apparent associated injury. EMS care: none. Current symptoms: Currently, the patient is not experiencing any symptoms. The patient has experienced similar episodes in the past, multiple times. Historical: - Allergies: 10:07 fluoxetine; mb9 10:07 Green Tea; mb9 10:07 Keppra; not an allergy; mb9 - Home Meds: 10:07 Depakote 500 mg oral tablet, delayed release (enteric coated) 1 tab 2 times per day mb9 [Active]; - PMHx: 10:07 Bipolar disorder; Anxiety; Cancer-Cervical; Chronic obstructive lung disease; Chronic mb9 pain; Congestive heart failure; Depression; Diverticulitis; Arthritis; Herniated Back Disc; Hypertension; intestinal mass; Myocardial infarction; pt reports hx of seizures; Spastic Muscles; stroke; - PSHx: 10:07 back surgery; cervical fusion; Cholecystectomy; foot; Tonsillectomy; mb9 - Immunization history:: Adult Immunizations up to date. - Infectious Disease History:: Denies. - Social history:: Smoking status: Patient reports the use of cigarette tobacco products, smokes one pack cigarettes per day. ROS: 12:14 Constitutional: Negative for fever, chills, and weight loss, Eyes: Negative for injury, fabrice pain, redness, and discharge, ENT: Negative for injury, pain, and discharge, Neck: Negative for injury, pain, and swelling, Cardiovascular: Negative for chest pain, palpitations, and edema, Respiratory: Negative for shortness of breath, cough, wheezing, and pleuritic chest pain, Back: Negative for injury and pain, : Negative for injury, bleeding, discharge, and swelling, MS/Extremity: Negative for injury and deformity, Skin: Negative for injury, rash, and discoloration, Neuro: Negative for headache, weakness, numbness, tingling, and seizure, Psych: Negative for depression, anxiety, suicide ideation, homicidal ideation, and hallucinations, Allergy/Immunology: Negative for hives, rash, and allergies, Endocrine: Negative for neck swelling, polydipsia, polyuria, polyphagia, and marked weight changes, Hematologic/Lymphatic: Negative for swollen nodes, abnormal bleeding, and unusual bruising, 12:14 Abdomen/GI: Positive for abdominal pain, 12:14 Neuro: Positive for seizure activity, Exam: 12:14 Constitutional: This is a well developed, well nourished patient who is awake, alert, fabrice and in no acute distress. Head/Face: Normocephalic, atraumatic. Eyes: Pupils equal round and reactive to light, extra-ocular motions intact. Lids and lashes normal. Conjunctiva and sclera are non-icteric and not injected. Cornea within normal limits. Periorbital areas with no swelling, redness, or edema. ENT: Nares patent. No nasal discharge, no septal abnormalities noted. Tympanic membranes are normal and external auditory canals are clear. Oropharynx with no redness, swelling, or masses, exudates, or evidence of obstruction, uvula midline. Mucous membranes moist. Neck: Trachea midline, no thyromegaly or masses palpated, and no cervical lymphadenopathy. Supple, full range of motion without nuchal rigidity, or vertebral point tenderness. No Meningismus. Chest/axilla: Normal chest wall appearance and motion. Nontender with no deformity. No lesions are appreciated. Cardiovascular: Regular rate and rhythm with a normal S1 and S2. No gallops, murmurs, or rubs. Normal PMI, no JVD. No pulse deficits. Respiratory: Lungs have equal breath sounds bilaterally, clear to auscultation and percussion. No rales, rhonchi or wheezes noted. No increased work of breathing, no retractions or nasal flaring. Back: No spinal tenderness. No costovertebral tenderness. Full range of motion. Skin: Warm, dry with normal turgor. Normal color with no rashes, no lesions, and no evidence of cellulitis. MS/ Extremity: Pulses equal, no cyanosis. Neurovascular intact. Full, normal range of motion. Neuro: Awake and alert, GCS 15, oriented to person, place, time, and situation. Cranial nerves II-XII grossly intact. Motor strength 5/5 in all extremities. Sensory grossly intact. Cerebellar exam normal. Normal gait. Psych: Awake, alert, with orientation to person, place and time. Behavior, mood, and affect are within normal limits. 12:14 ECG was reviewed by the Attending Physician. 12:14 Abdomen/GI: Inspection: distension, Bowel sounds: normal, Palpation: mild abdominal tenderness, in all quadrants, Liver: no appreciated palpable abnormalities, Hernia: not appreciated, Vital Signs: 10:09 BP 159 / 85; Pulse 85; Resp 18; Temp 98.5; Pulse Ox 100% on R/A; Weight 81.65 kg; mb9 Height 5 ft. 5 in. ; 11:12 BP 166 / 100; Pulse 83; Resp 18; Pulse Ox 100% on R/A; ld1 12:23 BP 156 / 94; Pulse 88; Resp 18; Pulse Ox 100% on R/A; ld1 10:09 Body Mass Index 29.95 (81.65 kg, 165.1 cm) mb9 [place] Coma Score: 10:10 Eye Response: spontaneous(4). Motor Response: obeys commands(6). Verbal Response: mb9 oriented(5). Total: 15. MDM: 10:01 Patient medically screened. fabrice 12:21 Differential diagnosis: cerebral vascular accident, drug overdose, cardiac arrhythmia, fabrice seizure, TIA. Data reviewed: vital signs, nurses notes, EMS record, lab test result(s), EKG, radiologic studies, CT scan. Consideration of Admission/Observation Escalation of care including admission/observation considered. I considered the following discharge prescriptions or medication management in the emergency department Medications were administered in the Emergency Department. See MAR. Independent interpretation of the following test(s) in the Emergency Department EKG: See my EKG interpretation above. Test considered but Not performed: MRI: no mri brain. CT: no ct head. Care significantly affected by the following chronic conditions: Cancer, chronic pain, copd, bipolar, anxiety. 04/02 10:12 Order name: Basic Metabolic Panel; Complete Time: :04/02 10:12 Order name: CBC with Diff; Complete Time: 04/02 10:12 Order name: LFT's; Complete Time: :04/02 10:12 Order name: Magnesium; Complete Time: :04/02 10:12 Order name: NT PRO-BNP; Complete Time: :04/02 10:12 Order name: PT-INR; Complete Time: :04/02 10:12 Order name: Troponin HS; Complete Time: :04/02 10:12 Order name: Depakote; Complete Time: :04/02 10:12 Order name: Urinalysis w/ reflexes; Complete Time: 12:25 04/02 10:12 Order name: UDS; Complete Time: 12:42 04/02 10:12 Order name: Lipase; Complete Time: 04/02 10:12 Order name: XRAY Chest (1 view); Complete Time: :04/02 10:12 Order name: CT Abd/Pelvis - IV Contrast Only; Complete Time: 12:10 fabrice 04/02 10:12 Order name: EKG; Complete Time: 10:04/02 10:12 Order name: Cardiac monitoring; Complete Time: :04/02 10:12 Order name: EKG - Nurse/Tech; Complete Time: :04/02 10:12 Order name: IV Saline Lock; Complete Time: :04/02 10:12 Order name: Labs collected and sent; Complete Time: :04/02 10:12 Order name: O2 Per Protocol; Complete Time: :04/02 10:12 Order name: O2 Sat Monitoring; Complete Time: : [facility] EC: Rate is 91 beats/min. Rhythm is regular. QRS [place] is Normal. [place] interval is normal. QRS fabrice interval is normal. QT interval is prolonged at 477 msec. No Q waves. T waves are Normal. No ST changes noted. Clinical impression: NSR w/ Non-specific ST/T Changes and No evidence of ischemia. Interpreted by me. Reviewed by me. Administered Medications: 11:16 Drug: Depacon IV 500 mg 5 ml IV at calculated rate once Volume: 5 ml; Route: IV; Rate: ld1 calculated rate; Site: right antecubital; 12:21 Follow up: Response: No adverse reaction; IV Status: Completed infusion ld1 11:16 Drug: Depakote PO 500 mg PO once Route: PO; ld1 12:22 Follow up: Response: No adverse reaction ld1 11:16 Drug: NS 0.9% IV 1000 ml IV at 1 bolus Per protocol; 1000 mL bolus Route: IV; Rate: 1 ld1 bolus; Site: right antecubital; 12:22 Follow up: Response: No adverse reaction; IV Status: Completed infusion; IV Intake: ld1 1000ml 12:00 Drug: Ativan IVP 1 mg IVP once Route: IVP; Site: right antecubital; ld1 12:22 Follow up: Response: No adverse reaction ld1 12:22 Drug: Ondansetron IVP 4 mg IVP once; over 2 minutes Route: IVP; Site: right antecubital;ld1 12:48 Follow up: Response: No adverse reaction ld1 Disposition Summary: 04/02/24 12:23 Discharge Ordered Notes: Location: Home fabrice Problem: new fabrice Symptoms: have improved fabrice Condition: Stable fabrice Diagnosis - Epileptic seizures related to external causes, not intractable, without status fabrice epilepticus - Cocaine abuse fabrice Followup: fabrice - With: Private Physician - When: 2 - 3 days - Reason: Recheck today's complaints, Continuance of care, Re-evaluation by your physician Followup: fabrice - With: Javier Ireland MD - When: 2 - 3 days - Reason: Recheck today's complaints, Re-evaluation by your physician Discharge Instructions: - Discharge Summary Sheet fabrice - Cocaine Use Disorder fabrice - Epilepsy fabrice - Substance Use Disorder fabrice - Seizure, Adult fabrice - Seizure, Adult, [id number] fabrice - Epilepsy, [id number] fabrice - Substance Use Disorder and Mental Illness fabrice - Supporting Someone With Substance Use Disorder fabrice Forms: - Medication Reconciliation Form fabrice - Antibiotic Education fabrice - Prescription Opioid Use fabrice - Patient Portal Instructions fabrice - Leadership Thank You Letter fabrice Prescriptions: - ondansetron 4 mg Oral Tablet,disintegrating - take 1 tablet ORAL route every 8 to 12 hours for 5 days; 20 tablet; Refills: 0, [facility] Product Selection Permitted - Depakote 250 mg Oral tablet, delayed release (enteric coated) - take 1 tablet ORAL route every 12 hours; 30 tablet; Refills: 0, Product fabrice Selection Permitted Signatures: Dispatcher [employer] EDDerrick Norton MD MD cha Sims, Lauren RN RN ld1 Yolanda, Shy Burgos RN RN mb9 Corrections: (The following items were deleted from the chart) 10:12 10:12 BASIC METABOLIC PANEL+C.LAB.BRZ ordered. EDMS EDMS 10:12 10:12 CBC+H.LAB.BRZ ordered. EDMS EDMS 10:12 10:12 HEPATIC FUNCTION+C.LAB.BRZ ordered. EDMS EDMS 10:12 10:12 MAGNESIUM+C.LAB.BRZ ordered. EDMS EDMS 10:12 10:12 PROBNP+C.LAB.BRZ ordered. EDMS EDMS 10:12 10:12 PROTIME (+INR)+COAG.LAB.BRZ ordered. EDMS EDMS 10:12 10:12 Troponin High Sensitivity+C.LAB.BRZ ordered. EDMS EDMS 10:12 10:12 VALPROIC ACID (DEPAKOTE)+C.LAB.BRZ ordered. EDMS EDMS 10:12 10:12 Urinalysis+U.LAB.BRZ ordered. EDMS EDMS 10:12 10:12 URINE DRUG SCREEN+UC.LAB.BRZ ordered. EDMS EDMS 10:12 10:12 LIPASE+C.LAB.BRZ ordered. EDMS EDMS 10:30 10:21 VALPROIC ACID (DEPAKOTE)+C.LAB.BRZ ordered. EDMS EDMS
--- NOTE | 2024-04-02 12:24 | ER ---
Nurse's Notes [facility] Name: Heather Coon Age: 54 yrs Sex: Female : 1970 Arrival Date: 04/02/2024 Time: 09:50 Bed 20 Private MD: Diagnosis: Epileptic seizures related to external causes, not intractable, without status epilepticus;Cocaine abuse Presentation: 04/02 10:09 Chief complaint: EMS states: "toned out for 2 witnessed seizures [employer]. Pt states she has mb9 been out of her Depakote for the past month". Coronavirus screen: Vaccine status: Patient reports receiving the 2nd dose of the covid vaccine. Ebola Screen: No symptoms or risks identified at this time. Initial Sepsis Screen: Does the patient meet any 2 criteria? No. Patient's initial sepsis screen is negative. Does the patient have a suspected source of infection? No. Patient's initial sepsis screen is negative. Risk Assessment: Do you want to hurt yourself or someone else? Patient reports no desire to harm self or others. Onset of symptoms was April 02, 2024. 10:09 Acuity: ANDER 3 mb9 10:09 Method Of Arrival: EMS: [facility] mb9 Historical: - Allergies: 10:07 fluoxetine; mb9 10:07 Green Tea; mb9 10:07 Keppra; not an allergy; mb9 - Home Meds: 10:07 Depakote 500 mg oral tablet, delayed release (enteric coated) 1 tab 2 times per day mb9 [Active]; - PMHx: 10:07 Bipolar disorder; Anxiety; Cancer-Cervical; Chronic obstructive lung disease; Chronic mb9 pain; Congestive heart failure; Depression; Diverticulitis; Arthritis; Herniated Back Disc; Hypertension; intestinal mass; Myocardial infarction; pt reports hx of seizures; Spastic Muscles; stroke; - PSHx: 10:07 back surgery; cervical fusion; Cholecystectomy; foot; Tonsillectomy; mb9 - Immunization history:: Adult Immunizations up to date. - Infectious Disease History:: Denies. - Social history:: Smoking status: Patient reports the use of cigarette tobacco products, smokes one pack cigarettes per day. Screenin:23 [facility] ED Fall Risk Assessment (Adult) History of falling in the last 3 months, ld1 including since admission No falls in past 3 months (0 pts) Confusion or Disorientation No (0 pts) Intoxicated or Sedated No (0 pts) Impaired Gait No (0 pts) Mobility Assist Device Used No (0 pt) Altered Elimination No (0 pt) Score/Fall Risk Level 0 - 2 = Low Risk Oriented to surroundings, Maintained a safe environment, Educated pt \\T\\ family on fall prevention, incl call for assistance when getting out of bed, Assessed \\T\\ reinforced patient's understanding of fall precautions, Provided non-skid footwear, Hourly rounding (assess needs \\T\\ fall precautionary measures) done, Used ambulatory aids as needed (educated on \\T\\ assisted with), Used gait belt as appropriate. Abuse screen: Denies threats or abuse. Denies injuries from another. Nutritional screening: No deficits noted. Tuberculosis screening: No symptoms or risk factors identified. Assessment: 11:12 General: Appears in no apparent distress. comfortable, Behavior is calm, cooperative, ld1 appropriate for age. Pain: Denies pain. Neuro: Level of Consciousness is awake, alert, obeys commands, Oriented to person, place, time, situation, Appropriate for age. Cardiovascular: Capillary refill < 3 seconds Patient's skin is warm and dry. Respiratory: Airway is patent Respiratory effort is even, unlabored. GI: Abdomen is round non-distended. : No signs and/or symptoms were reported regarding the genitourinary system. EENT: No signs and/or symptoms were reported regarding the EENT system. Derm: No signs and/or symptoms reported regarding the dermatologic system. Musculoskeletal: No signs and/or symptoms reported regarding the musculoskeletal system. 12:23 Reassessment: Patient appears in no apparent distress at this time. No changes from ld1 previously documented assessment. Pt C/O nausea. Notified ERP. Vital Signs: 10:09 BP 159 / 85; Pulse 85; Resp 18; Temp 98.5; Pulse Ox 100% on R/A; Weight 81.65 kg; mb9 Height 5 ft. 5 in. ; 11:12 BP 166 / 100; Pulse 83; Resp 18; Pulse Ox 100% on R/A; ld1 12:23 BP 156 / 94; Pulse 88; Resp 18; Pulse Ox 100% on R/A; ld1 10:09 Body Mass Index 29.95 (81.65 kg, 165.1 cm) mb9 Nicole Coma Score: 10:10 Eye Response: spontaneous(4). Motor Response: obeys commands(6). Verbal Response: mb9 oriented(5). Total: 15. ED Course: 09:52 Patient arrived in ED. sb4 10:01 Derrick Santillan MD is Attending Physician. fabrice 10:05 Randee Fisher, BETH is Primary Nurse. ld1 10:07 Arm band placed on. mb9 10:10 Triage completed. mb9 10:10 Bed in low position. Call light in reach. Side rails up X 1. Seizure precautions mb9 initiated. Provided Education on: press call light if needing anything. Client placed on continuous cardiac and pulse oximetry monitoring. NIBP monitoring applied. wet washer machine on. 10:18 EKG done, by ED staff, reviewed by Derrick Santillan MD. [email or web address] 10:22 Accessed peripheral vein via ultrasound, utilizing dynamic ultrasound technique Clean \\T\\ mb9 dry. Dressing intact. Good blood return. Flushes easily. 20 g right AC. 10:28 Lipase Sent. ld1 10:28 Depakote Sent. ld1 10:58 XRAY Chest (1 view) In Process Unspecified. EDMS 11:39 CT Abd/Pelvis - IV Contrast Only In Process Unspecified. EDMS 12:21 UDS Sent. ld1 12:21 Urinalysis w/ reflexes Sent. ld1 12:22 Javier Ireland MD is Referral Physician. [facility] 12:23 Door closed. Noise minimized. Warm blanket given. ld1 12:23 No provider procedures requiring assistance completed. ld1 12:49 IV discontinued, intact, bleeding controlled, No redness/swelling at site. ld1 Administered Medications: 11:16 Drug: Depacon IV 500 mg 5 ml IV at calculated rate once Volume: 5 ml; Route: IV; Rate: ld1 calculated rate; Site: right antecubital; 12:21 Follow up: Response: No adverse reaction; IV Status: Completed infusion ld1 11:16 Drug: Depakote PO 500 mg PO once Route: PO; ld1 12:22 Follow up: Response: No adverse reaction ld1 11:16 Drug: NS 0.9% IV 1000 ml IV at 1 bolus Per protocol; 1000 mL bolus Route: IV; Rate: 1 ld1 bolus; Site: right antecubital; 12:22 Follow up: Response: No adverse reaction; IV Status: Completed infusion; IV Intake: ld1 1000ml 12:00 Drug: Ativan IVP 1 mg IVP once Route: IVP; Site: right antecubital; ld1 12:22 Follow up: Response: No adverse reaction ld1 12:22 Drug: Ondansetron IVP 4 mg IVP once; over 2 minutes Route: IVP; Site: right antecubital;ld1 12:48 Follow up: Response: No adverse reaction ld1 Medication: 12:23 VIS not applicable for this client. ld1 Intake: 12:22 IV: 1000ml; Total: 1000ml. ld1 Outcome: 12:23 Discharge ordered by . fabrice 12:48 Discharged to home via wheelchair, with family, ld1 12:48 Condition: stable 12:48 Discharge instructions given to patient, Instructed on discharge instructions, follow up and referral plans. medication usage, Demonstrated understanding of instructions, follow-up care, medications, Prescriptions given X 2, 12:49 Patient left the ED. ld1 Signatures: Dispatcher [employer] EDMS Derrick Santillan MD MD cha Sims, Lauren, RN RN ld1 Mariola Mahmood, PA-C PA-C sb4 Shy Guerrero RN RN mb9 Irina Recinos [email or web address] Corrections: (The following items were deleted from the chart) 10:30 10:28 VALPROIC ACID (DEPAKOTE)+[id number].[email or web address].[email or web address] drawn and sent. ld1 EDPA
[2024-04-02 12:33] LABS: Barbiturates NEGATIVE (NEGATIVE); Benzodiazepines NEGATIVE (NEGATIVE); Cocaine POSITIVE (NEGATIVE); METHAMPHETAM NEGATIVE (NEGATIVE); Methadone NEGATIVE (NEGATIVE); Opiates NEGATIVE (NEGATIVE); Phencyclidine NEGATIVE (NEGATIVE); THC Cannibis POSITIVE (NEGATIVE)
[2024-04-02 12:55] VITALS: TEMP 98.5; O2SAT 100
[2024-04-02 12:57] VITALS: BP 156/94
--- NOTE | 2024-04-04 12:53 | EKG ---
Test Date: 2024-04-02 Test Time: 10:15:03 Director Systems: LAURENCE MEASUREMENT RESULTS: Intervals: Rate: 91 SC: 140 QRSD: 88 QT: 388 QTc: 477 [place]: P: 71 SC: 140 QRS: 113 T: 54 INTERPRETIVE STATEMENTS: Normal sinus rhythm with sinus arrhythmia Possible Left atrial enlargement Right axis deviation Low voltage QRS Nonspecific T wave abnormality Prolonged QT Abnormal ECG Compared to ECG 12/22/2023 21:28:59 Right-axis deviation now present Prolonged QT interval now present Possible ischemia no longer present T-wave abnormality still present Electronically Signed On 04-04-24 12:48:46 CDT by Saad Leavitt
== END 2024-04-02 12:49 | disposition home or self-care (01) ==
LOC: ER 09:50
DX: G40.509 Epileptic seizures related to external causes, not intractable, without status epilepticus (principal); F14.10 Cocaine abuse, uncomplicated; F17.210 Nicotine dependence, cigarettes, uncomplicated; F41.9 Anxiety disorder, unspecified; F31.9 Bipolar disorder, unspecified; I10 Essential (primary) hypertension; I25.2 Old myocardial infarction; I50.9 Heart failure, unspecified; J44.9 Chronic obstructive pulmonary disease, unspecified; G89.29 Other chronic pain
CPT/HCPCS: 36415; 71045; 74177; 80048; 80076; 80164; 80307; 81001; 83690; 83735; 83880; 84484; 85025; 85610; 93005; 96365; 96375; 99285; J2405; J7030; Q9967

== ENCOUNTER 2024-04-23 13:04 | Emergency (ER) | payer OTHER ==
--- OUTSIDE RECORDS SUMMARY | 2024-04-23 13:26 | XMS REPORT | Continuity of Care Document ---
Author Name Unknown Address [address] [facility]. [address] [place] [address] [facility] thconnect Address [address] [facility]. [address] [place] [address] Care Team Providers Care Message Clerk Name Role Phone Alina Aneta SUAREZ Primary Care Physician PANKAJ OBREGON Attending Clinician Un available AYDEE GO Attending Clinician Unavailable MARIANELA BURGESS Attending Clinician UnavailADAM Moreno Attending Clinician Unavailable THOMAS LOZOYA Attending Clinician Nina MARIAH Quiroga Attending Clinician Unavailable GUSTAVO DELANEY Attending Clinician Unavailable CHRISSY MOHR Attending Clinician Unavailable CHRISSY MOHR Attending Clinician Unavailable Chrissy Mohr DO Attending Clinician [phone] MD GERRY Attending Clinician Unavailab le Doctor Unassigned, Ranson Attending Clinician U chelsi ZAVALAKATJA MORALES Attending Clinician Unavailab RADHA Vargas Attending Clinician Unavailable RADHA WYATT Attending Clinician Unavailable Gerardo CAMPOS, Veronique Olivia Attending Clinician [phone] DARRICK ALTAMIRANO Attending Clinician Unavailabl itz Del Castillo POWER WOOD SAWYER, Olena Attending Clinician [phone] Alfonso Lopez Attending Clinician [phone] Lisandra ELIZONDO, Darrick Suarez. Attending Clinician [phone] Morena CAMPOS, Jodi Gonzalez Attending Clinician Unavail able TAL BENAVIDEZ Attending Clinician Unavailable Mj Bryan DO Attending Clinician [phone] Tal Benavidez MD Attending Clinician [phone] MOJGAN SIMENTAL Attending Clinician Unav arianna Renee MD, Connor Suarez Attending Clinician + [phone] Kamille ELIZONDO, Mojgan Mueller Attending Clinician + Madeline Mckinley RN Attending Clinician Unavailab MADELINE Edwards Attending Clinician Unavailable MADELINE PIERRE Attending Clinician Unavailable Megan Rondon MD Attending Clinician [phone] Altamirano MD Attending Clinician [phone] Lorenzo Ventura MD, Ivis Attending Clinician +[phone] Nola ELIZONDO, Ryder Joshi Attending Clinici an AARON LEDESMA Attending Clinician Unavailable Tracy ELIZONDO, Cris Attending Clinician [phone] EFRA BABCOCK Attending Clinician Un available MYLA LIEBERMAN Attending Clinician Unavailable JUANY GREEN Attending Clinician Unavailable CINDI, TIFFANY Attending Clinician Unavaila SIDDHARTH Kaye Attending Clinician UnavailMARGOT Dexter Attending Clinician Unavailable SARAI JULES Attending Clinician Unavaila YONATAN Juarez Attending Clinician UnaEDWARD Sneed Attending Clinician Unavailable Nir ELIZONDO, [place] Olivia Attending Clinician Unavailab monroe Obregon MD, Pankaj Attending Clinician [phone] Altamirano Edward KRAFT Attending Clinician [phone] Bud ELIZONDO, Edward Attending Clinician [phone] DEMETRIUS TOBAR Attending Clinician Unavailab QUIN Armenta Attending Clinician Unavail able Kael POWER WOOD SAWYER, Quin R Attending Clinician [phone] MJ BRYAN Attending Clinician Unavailable Jenifer ELIZONDO, Marianela Hamilton Attending Clinician [phone] Abbi ELIZONDO, Aydee Attending Clinician [phone] Provider, Not In System Attending Clinician Unav Dallas Allen Attending Clinician [phone] Jose ELIZONDO, Adam Attending Clinician [phone] Mercedez ELIZONDO, Harry Attending Clinician +[phone] Rocael ELIZONDO, Antwon Attending Clinician Unavailab Yue Booth MD Attending Clinician [phone] Connie Davey MD Attending Clinician [phone] Jasen ELIZONDO, Mariah Attending Clinician [phone] Valerio ELIZONDO, Thomas Reddy Attending Clinician + [phone] CONNIE DAVEY Attending Clinician UnavailAlfonso Oh Attending Clinician Unavailable RITCHIE WARREN Attending Clinician Unavailable Ritchie Warren MD Attending Clinician [phone] Rk CAMPOS, Margot Stoner Attending Clinician +[phone] PARRISH DIANE Attending Clinician Unavaila yaya Mendoza MD, Halima Hummel Attending Clinician [phone] Ning Geller MD Attending Clinician [phone] Parrish Diane MDthia Attending Clinici an DAMI LOWRY Attending Clinician Unavailable Essence ELIZONDO, Dami Attending Clinician +[phone] Maria Teresa Nicole LVN Attending Clinician + [phone] CHANTEL BOJORQUEZ Attending Clinician CHANTEL Kelly Attending Clinician Jack Ibrahim MD, Brandyn Otoole Attending Clinician [phone] SELINA MARTINES Attending Clinician Unavailable Sapna Vargas DO Attending Clinician + [phone] Tyrel ELIZONDO, Glory Katz Attending Clinician + Selina Martines MD Attending Clinician [phone] Vaccine, Moore Dangelo Attending Clinician U chelsi Pak MD, Jose Attending Clinician [phone] JOSE PAK Attending Clinician Unavailable WILLIAMS VIRK Attending Clinician Unavaila ble Sully SCRUBBING MACHINE OPERATOR, Williams F Attending Clinician [phone] Miky Nava RN Attending Clinician Unavailab monroe Chakraborty SCRUBBING MACHINE OPERATORFabrice Otoole Attending Clinician [phone] Deo SCRUBBING MACHINE OPERATORLydia Attending Clinician [phone] Unknown, Attending Attending Clinician Unavailab le UNKNOWN, ATTENDING Attending Clinician Unavailab Estefania Berg Attending Clinician [phone] Yehuda Arcos MD Attending Clinician [phone] PANKAJ OBREGON Admitting Clinician Un available MARIANELA BURGESS Admitting Clinician Unavailab ADAM Cabrera Admitting Clinician Unavailable MARIAH ALDRIDGE Admitting Clinician Unavailable CHRISSY MOHR Admitting Clinician Unavailable RADHA WYATT Admitting Clinician Unavailable DARRICK ALTAMIRANO Admitting Clinician UnavailDarrick Geiger MD Admitting Clinician [phone] TAL BENAVIDEZ Admitting Clinician Unavailable Tal Benavidez MD Admitting Clinician MOJGAN SIMENTAL Admitting Clinician Unav ailable Mojgan Simental MD Admitting Clinician + CR ALTAMIRANO Admitting Clinician Unavailable CONNIE DAVEY Admitting Clinician UnavailAlfonso Oh Admitting Clinician Unavailable RITCHIE WARREN Admitting Clinician Unavailable NING GELLER Admitting Clinician Unavaila ble DAMI LOWRY Admitting Clinician Unavailable Dami Lowry MD Admitting Clinician [phone] BRANDYN IBRAHIM Admitting Clinician Unavailable Brandyn Ibrahim MD Admitting Clinician [phone] GLORY ESTEVES Admitting Clinician Unav ailable WILLIAMS VIRK Admitting Clinician Unavaila ble Payers Payer Name Policy Type Policy Number Effective Date Expirati on Date Source [facility] CYNTHIA VORA [id number] 2023 00:00:00 ISA RICARDO [id number] 2023 00:00:00 [facility] W/ CYNTHIA VELASQUEZ [id number] 2024 00:00:00 [facility] SESAR NASH COPAY FOCUS 9 [id number] 2023 00:00:00 MEDICAID PENDING PENDING 2022 00:00:00 Problems Condition Name Condition Details Condition Category Status Onset Date Resolution Date Last Treatment Date Treating Clinician Comments Source 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 systolic and diastolic congestive heart failure Disease Active 01-09 00:00: 00 [facility] Hypotensio n Hypotensio n Disease Active 01-08 00:00: 00 [facility] LV (left ventricula r) mural thrombus LV (left ventricula r) mural thrombus Disease Active 12-14 00:00: 00 [facility] Pulmonary hypertensi on Pulmonary hypertensi on Disease Active 12-14 00:00: 00 [facility] Shortness of breath Shortness of breath Disease Active 12-13 00:00: 00 [facility] Other chest pain Other chest pain Disease Active 5-15 00:00: 00 [facility] Depression Depression Disease Active 09-29 00:00: 00 [...] HCC) Disease Active 09-11 00:00: 00 Cynthia gnozalez Prediabete s Prediabete s Disease Active 09-11 00:00: 00 Cynthia Macdonaldthuold - Externa l Bilateral leg weakness Bilateral leg weakness Disease Active 2022-07 00:00: 00 [facility] Bilateral leg weakness Bilateral leg weakness Disease Active 2022-07 00:00: 00 [facility] Pneumonia Pneumonia Disease Active 2022-07 00:00: 00 [facility] Cavitary lesion of lung Cavitary lesion of lung Disease Active 2022-07 00:00: 00 [facility] Cervical disc disorder with radiculopa thy, high cervical region Cervical disc disorder with radiculopa thy, high cervical region Disease Active 2022-07 00:00: 00 [facility] Cervical myelopathy Cervical myelopathy Disease Recurre nee 2022-07 00:00: 00 [facility] Cord compressio n Cord compressio n Disease Recurre nee - 00:00: 00 [facility] Cauda equina compressio n Cauda equina compressio n Disease Active 03-30 00:00: 00 [facility] Seizure Seizure Disease Recurre nee -14 00:00: 00 [facility] Cardiomyop athy Cardiomyop athy Disease Active 08-01 00:00: 00 [facility] NSVT (nonsustai keisha ventricula r [facility] 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 artery disease involving [place] coronary artery of [place] heart without angina pectoris Disease Active 07-31 [facility] 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 artery disease involving [place] coronary artery of [place] heart without angina pectoris Disease Active 07-31 00:00: 00 [facility] Chronic bilateral low back pain with bilateral sciatica Chronic bilateral low back pain with bilateral sciatica Disease Active 2021-07 0 00:00: 00 [facility] [...] 00 [facility] Breast pain Breast pain Disease Resolve d 09-17 00:00: 00 2015-09-18 00:00:00 2015-09-18 13:19:09 [facility] Allergies, Adverse Reactions, Alerts Allergy Name Allergy Type Status Severity Reaction(s) Onset Date Inactive Date Treating Clinician Comments Source Fluoxeti ne Propensi ty to adverse reaction s Active 03-29 00:00: 00 [facility] Green Tea Drug Allergy Active Other (See Comments) 03-29 00:00: 00 Seizure like activity [facility] Levetira cetam Drug Allergy Active Nausea And Vomiting 0 - 00:00: 00 Intensifi es seizure [facility] FLUOXETI NE Allergy Active 0 03-29 00:00: 00 [facility] GREEN TEA Allergy Active High Other 0 - 00:00: 00 [facility] LEVETIRA CETAM Allergy Active High N\\T\\V 03-29 00:00: 00 [facility] Green Tea Propensi ty to adverse reaction s Active 0 03-29 00:00: 00 Seizure like activity [facility] Levetira cetam Propensi ty to adverse reaction s Active Nausea And Vomiting 03-29 00:00: 00 Intensifi es seizure [facility] Levetira cetam Propensi ty to adverse reaction s Active Other 0 11-17 00:00: 00 Intensifi es seizure Makes seizures worse Makes seizures worse Intensifi es seizure Cynthia gonzalez LEVETIRA CETAM DRUG INGREDI Active Other-Cmnt - 00:00: 00 [facility] Levetira cetam Propensi ty to adverse reaction s Active Other - See comments 11-17 00:00: 00 Makes seizures worse [facility] FLUOXETI NE Allergy Active Med Rash 2022-0 1-14 00:00: 00 [facility] Fluoxeti ne Propensi ty to adverse reaction s Active Rash 0 1-14 00:00: 00 [facility] Green Tea Propensi ty to adverse reaction s Active 0 1-14 00:00: 00 [facility] GREEN TEA Allergy Active 0 1-14 00:00: 00 [facility] Fluoxeti ne Propensi ty to adverse reaction s Active Unknown - See comments - 00:00: 00 [facility] FLUOXETI NE DRUG INGREDI Active Unknown-Cmnt 0 - 00:00: 00 [facility] Diclofen ac Propensi ty to adverse reaction s Active Anxiety 2015- 5-04 00:00: 00 Cynthia Seybold - Externa l DICLOFEN AC DRUG INGREDI Active HYPERTENSION 11-20 00:00: 00 [facility] Green Tea Propensi ty to adverse reaction s Active Anxiety 08-10 00:00: 00 Seizure like activity Seizures Seizures Seizure like activity Cynthia Seybold - Externa l GREEN TEA DRUG INGREDI Active Med Other-Cmnt 08-10 00:00: 00 [facility] Green Tea Propensi ty to adverse reaction s to drug Active Other - See comments 08-10 00:00: 00 Seizures [facility] FLUOXETI NE HCL DRUG INGREDI Active Hives 03-19 00:00: 00 [facility] Fluoxeti ne Hcl Propensi ty to adverse reaction s Active Hives 03-19 00:00: 00 [facility] Family History Family Member Diagnosis Comments Start Date Stop Date Sourc e Natural mother Alcohol abuse [facility] Natural mother Cancer [facility] Natural mother Diabetes [facility] Natural mother Heart disease [facility] Natural mother Hyperlipidemia [facility] Natural mother Kidney disease [facility] Natural mother Stroke [facility] Natural mother Alcohol abuse [facility] Natural mother Stroke [facility] Paternal uncle Diabetes [facility] Social History Social Habit Start Date Stop Date Quantity Comments Source History SDOH Alcohol Frequency [facility] History SDOH Alcohol Std Drinks [facility] History SDOH Alcohol Binge [facility] History SDOH Housing Homeless Last Year [facility] History of tobacco use Passive smoker [facility] History SDOH Social Connections Get Together [facility] History SDOH Social Connections [facility] History SDOH Social Connections Membership [facility] History SDOH Social Connections Meetings [facility] Sexual orientation [facility] Alcoholic beverage intake 2024-04-02 00:00:00 2024-04-02 00:00:00 0 /d [facility] Education - What is the highest level of school you have completed or the highest degree you have received? 2023-09-30 00:00:00 2023-09-30 00:00:00 GED or equivalent Cynthia Garcia - External History of Social function 2023-08-03 00:00:00 2023-08-03 00:00:00 [facility] Alcohol intake 2023-06-02 00:00:00 2023-06-02 00:00:00 Current drinker of alcohol (finding) [facility] Exposure to SARS-CoV-2 (event) 2023-05-18 00:00:00 2023-05-28 07:28:00 Not sure [facility] History SDOH Housing Unable to Pay - In the last 12 months, was there a time when you were not able to pay the mortgage or rent on time? 2023-05-26 00:00:00 2023-05-26 00:00:00 Yes [facility] Cigarettes smoked current (pack per day) - Reported 2023-05-26 00:00:00 2023-05-26 00:00:00 [facility] Cigarette pack-years 2023-05-26 00:00:00 2023-05-26 00:00:00 [facility] Tobacco use and exposure 2023-05-26 00:00:00 2023-05-26 00:00:00 Smokeless tobacco non-user [facility] History SDOH Housing Places Lived 2023-03-30 00:00:00 2023-03-30 00:00:00 1 [facility] Alcohol Comment 2023-03-29 00:00:00 2023-03-29 00:00:00 2x a week [facility] History SDOH Social Connections Phone 2022-08-01 00:00:00 2022-08-01 00:00:00 5 [facility] History SDOH Social Connections Living 2022-08-01 00:00:00 2022-08-01 00:00:00 5 [facility] History SDOH Physical Activity DPW 2022-08-01 00:00:00 2022-08-01 00:00:00 0 [facility] History SDOH Physical Activity MPS 2022-08-01 00:00:00 2022-08-01 00:00:00 0 [facility] History SDOH Financial 2022-08-01 00:00:00 2022-08-01 00:00:00 3 [facility] History SDOH Food Worry 2022-08-01 00:00:00 2022-08-01 00:00:00 1 [facility] History SDOH Food Scarcity 2022-08-01 00:00:00 2022-08-01 00:00:00 1 [facility] History SDOH Transport Med 2022-08-01 00:00:00 2022-08-01 00:00:00 2 [facility] History SDOH Transport Non-Med 2022-08-01 00:00:00 2022-08-01 00:00:00 2 [facility] Sex Assigned At 1970 00:00:00 1970 00:00:00 [facility] Smoking Status Start Date Stop Date Source Smokes tobacco daily 2023-11-25 00:00:00 [facility] Never smoked tobacco Cynthia Seybold - External Ex-smoker 2023-05-26 00:00:00 2023-05-26 00:00:00 [facility] Medications Ordered Medication Name Filled Medication Name Start Date Stop Date Current Medication? Ordering Clinician Indication Dosage Frequency Signature (SIG) Comments Components Source acetaminoph en (OFIRMEV) IV piggyback 1,000 mg 04-03 04:30: 00 04-03 04:04 :00 No 1000mg 1,000 mg, IV Piggyback, at 400 mL/hr Administer over 15 Minutes, ONCE, 1 dose, On 04/02/24 at 2330, MICHAEL, Is the patient strict NPO and unable to tolerate oral medication s? Yes [facility] valproate (DEPACON) 500 mg in D5W piggyback 04-03 03:30: 00 04-03 04:49 :00 No 500mg 500 mg, IV Piggyback, ONCE NOW, 1 dose, On 04/02/24 at 2245, Administer over 30 Minutes, 100 mL [facility] divalproex (DEPAKOTE) delayed release tablet 250 mg 04-03 03:15: 00 04-03 04:07 :00 No 250mg 250 mg, Oral, ONCE NOW, 1 dose, On 04/02/24 at 2215, [facility] ondansetron (ZOFRAN (PF)) injection 4 mg 04-03 02:30: 00 04-03 04:58 :00 No 4mg 4 mg, Slow IV Push, ONCE, 1 dose, On 04/02/24 at 2130, [facility] morpHINE (4 mg/mL) injection 4 mg 04-03 02:30: 00 04-03 04:58 :00 No 4mg 4 mg, Slow IV Push, ONCE, 1 dose, On 04/02/24 at 2130, STAT [facility] divalproex ER 500 mg 24 hr tablet 04-03 00:00: 00 Yes [id number] 1000mg Take 2 tablets by mouth every 12 (twelve) hours. [facility] KCL 20 mEq tablet 04-03 00:00: 00 04-09 04:59 :00 Yes [id number] 40meq Take 2 tablets by mouth in the morning for 5 days. [facility] LORazepam (ATIVAN) tablet 1 mg 01-12 04:00: 00 01-12 03:56 :00 No 1mg 1 mg, Oral, ONCE, 1 dose, On Thu01/12/24 at 2300, [facility] ondansetron (ZOFRAN (PF)) injection 8 mg 01-12 04:00: 00 01-12 03:55 :00 No 8mg 8 mg, Slow IV Push, ONCE, 1 dose, On Thu01/12/24 at 2300, [facility] morpHINE (4 mg/mL) injection 6 mg 26 04:00: 00 01-12 03:55 :00 No 6mg 6 mg, Slow IV Push, ONCE, 1 dose, On Thu01/12/24 at 2300, STAT [facility] mirtazapine (REMERON) tablet 15 mg 01-10 02:00: 00 Yes 15mg [facility] atorvastati n (LIPITOR) tablet 40 mg 01-10 02:00: 00 Yes 40mg [facility] MULTIVITAMI N ORAL 01-09 15:56: 06 Yes 1{tbl} Take 1 Tab by mouth daily. [facility] omega-3 fatty acids-vitam in E (FISH OIL) 1,000 mg capsule 01-09 15:56: 06 Yes 1g Take 1 g by mouth daily. [facility] loratadine (CLARITIN LIQUI-GEL) 10 mg capsule 01-09 15:56: 06 Yes Take by mouth daily. [facility] metoprolol succinate XL 50 mg 24 hr tablet 01-09 15:56: 06 01-09 00:00 :00 No 50mg Take 1 tablet by mouth in the morning. [facility] KCL (KLOR-CON M20) tablet 40 mEq 01-09 15:45: 00 01-09 17:43 :00 No 40meq 40 mEq, Oral, ONCE, 1 dose, On 01/10/24 at 1045, Routine [facility] ondansetron 4 mg tablet 01-09 14:46: 23 01-09 00:00 :00 No 4mg Take 1 tablet by mouth every 8 (eight) hours as needed for Nausea and Vomiting (N/V). [facility] perflutren protein-A microsphr (OPTISON) injection 3 mL 01-09 14:15: 00 01-09 14:15 :00 No [id number] 3mL 3 mL, IV Push, ONCE, 1 dose, On 01/10/24 at 0915, Routine [facility] tamsulosin (FLOMAX) capsule 0.4 mg 01-09 14:00: 00 Yes .4mg 0.4 mg, Oral, DAILY, First dose on 01/10/24 at 0900, Until Discontinu ed, Routine [facility] metoprolol succinate XL (TOPROL XL) tablet 12.5 mg 01-09 14:00: 00 Yes 12.5mg [facility] DULoxetine (CYMBALTA) capsule 30 mg 01-09 14:00: 00 Yes 30mg 30 mg, Oral, DAILY, First dose on 01/10/24 at 0900, Until Discontinu ed, Routine [facility] digoxin (LANOXIN) tablet 125 mcg 01-09 14:00: 00 Yes 125ug 125 mcg, Oral, DAILY, First dose on 01/10/24 at 0900, Until Discontinu ed [facility] aspirin chewable tablet 81 mg 01-09 14:00: 00 Yes 81mg 81 mg, Oral, DAILY, First dose on 01/10/24 at 0900, Until Discontinu ed, Routine [facility] nicotine (NICODERM) 21 mg/24 hr patch 1 Patch 01-09 13:45: 00 Yes 1{patch } 1 Patch, Topical, Administer over 24 Hours, Q24H, First dose on 01/10/24 at 0845, Until Discontinu ed, Routine [facility] gabapentin (NEURONTIN) capsule 100 mg 01-09 13:00: 00 Yes 100mg 100 mg, Oral, TID, First dose on 01/10/24 at 0800, Until Discontinu ed, Routine [facility] divalproex (DEPAKOTE) delayed release tablet 1,000 mg 01-09 13:00: 00 Yes 1000mg 1,000 mg, Oral, Q12H, First dose on 01/10/24 at 0800, Until Discontinu ed, Routine [facility] cyclobenzap rine (FLEXERIL) tablet 5 mg 01-09 13:00: 00 Yes 5mg 5 mg, Oral, TID, First dose on 01/10/24 at 0800, Until Discontinu ed, Routine [facility] apixaban (ELIQUIS) tablet 5 mg 01-09 13:00: 00 02-27 12:59 :00 No [id number] 5mg 5 mg, Oral, BID, 98 doses, First dose on 01/10/24 at 0800, Last dose on 02/27/24 at 2000, Routine, Indication s: DVT/PE [facility] FENTanyl PF (SUBLIMAZE (PF)) injection 25 mcg 01-09 03:08: 20 01-10 03:07 :20 No 25ug 25 mcg, Slow IV Push, Q4HPRN, Starting on 01/09/24 at 2208, Until 01/10/24 at 2207, Routine, Pain (scale 7-10), Pain (scale 4-6) [facility] acetaminoph en (TYLENOL) tablet 650 mg 01-09 03:08: 07 Yes 650mg 650 mg, Oral, Q6HPRN, Starting on 01/09/24 at 2208, Until Discontinu ed, Routine, Pain (scale 1-3) [facility] ondansetron (ZOFRAN (PF)) injection 4 mg 01-09 02:45: 00 01-09 01:53 :00 No 4mg 4 mg, Slow IV Push, ONCE, 1 dose, On 01/09/24 at 2145, MICHAEL [facility] ipratropium -albuteroL (DUONEB) 0.5 mg-3 mg(2.5 mg base)/3 mL nebulizer solution 3 mL 01-09 02:45: 00 01-09 02:01 :00 No 3mL 3 mL, Inhalation , ONCE, 1 dose, On 01/09/24 at 2145, Routine [facility] cefTRIAXone (ROCEPHIN) 1,000 mg in NaCl 0.9% (NS) 100 mL MINI-BAG 01-09 02:30: 00 01-09 03:10 :00 No 1000mg 1,000 mg, IV Piggyback, ONCE, 1 dose, On 01/09/24 at 2130, Administer over 30 Minutes, 100 mL, Reason for Anti-Infec tive: Documented Infection, Documented Infection Site: Respirator y, Duration of Therapy: Once (ED) [facility] famotidine (PEPCID (PF)) injection 20 mg 01-09 01:45: 00 01-09 01:53 :00 No 20mg 20 mg, Slow IV Push, ONCE, 1 dose, On 01/09/24 at 2045, MICHAEL [facility] iopamidol (ISOVUE 370-500 mL) injection 90 mL 01-09 00:45: 00 01-09 00:45 :00 No [id number] 90mL 90 mL, Intravenou s, ONCE, 1 dose, On 01/09/24 at 1945, Routine [facility] atorvastati n 40 mg tablet 01-09 00:00: 00 Yes [id number] 20mg Take 0.5 tablets by mouth at bedtime. [facility] furosemide 40 mg tablet 01-09 00:00: 00 Yes [id number] 40mg Take 1 tablet by mouth every morning and evening. [facility] ipratropium -albuteroL 0.5 mg-3 mg(2.5 mg base)/3 mL nebulizer solution 01-09 00:00: 00 Yes [id number] 3mL Inhale 3 mL every 6 (six) hours as needed for Wheezing or Shortness of Breath. [facility] predniSONE 20 mg tablet 01-09 00:00: 00 01-15 04:59 :00 No [id number] 40mg Take 2 tablets by mouth in the morning for 5 days. [facility] FENTanyl PF (SUBLIMAZE (PF)) injection 50 mcg 01-08 22:45: 00 01-08 23:10 :00 No 50ug 50 mcg, Slow IV Push, ONCE, 1 dose, On 01/09/24 at 1745, STAT [facility] ondansetron (ZOFRAN (PF)) injection 4 mg 01-08 21:30: 00 01-08 21:47 :00 No 4mg 4 mg, Slow IV Push, ONCE, 1 dose, On Thu01/09/24 at 1630, MICHAEL [facility] aspirin tablet 325 mg 01-08 21:15: 00 01-08 21:47 :00 No 325mg 325 mg, Oral, ONCE, 1 dose, On Thu01/09/24 at 1615, STAT [facility] spironolact one 25 mg tablet 12-15 00:00: 00 01-15 04:59 :00 No [id number] 25mg Take 1 tablet by mouth in the morning for 30 days. [facility] furosemide (LASIX) tablet 40 mg 12-14 22:00: 00 Yes 40mg 40 mg, Oral, QAM+PM, First dose (after last modificati on) on Thu12/15/23 at 1700, Until Discontinu ed, Routine [facility] spironolact one (ALDACTONE) tablet 25 mg 12-14 14:00: 00 Yes 25mg 25 mg, Oral, DAILY, First dose on Thu12/15/23 at 0900, Until Discontinu ed, Routine [facility] tamsulosin (FLOMAX) capsule 0.4 mg 12-14 14:00: 00 Yes .4mg 0.4 mg, Oral, DAILY, First dose on Thu12/15/23 at 0900, Until Discontinu ed, Routine [facility] metoprolol succinate XL (TOPROL XL) tablet 12.5 mg 12-14 14:00: 00 Yes 12.5mg 12.5 mg, Oral, DAILY, First dose on Thu12/15/23 at 0900, Until Discontinu ed, Routine [facility] lisinopriL (PRINIVIL,Z ESTRIL) tablet 2.5 mg 12-14 14:00: 00 Yes 2.5mg [facility] DULoxetine (CYMBALTA) capsule 30 mg 12-14 14:00: 00 Yes 30mg 30 mg, Oral, DAILY, First dose on Thu12/15/23 at 0900, Until Discontinu ed, Routine [facility] digoxin (LANOXIN) tablet 125 mcg 12-14 14:00: 00 Yes 125ug 125 mcg, Oral, DAILY, First dose on Thu12/15/23 at 0900, Until Discontinu ed [facility] aspirin chewable tablet 81 mg 12-14 14:00: 00 Yes 81mg 81 mg, Oral, DAILY, First dose on Thu12/15/23 at 0900, Until Discontinu ed, Routine [facility] furosemide (LASIX) injection 40 mg 12-14 14:00: 00 12-14 13:49 :00 No 40mg 40 mg, Slow IV Push, ONCE, 1 dose, On Thu12/15/23 at 0900, Routine [facility] MULTIVITAMI N ORAL 12-14 11:08: 41 Yes 1{tbl} Take 1 Tab by mouth daily. [facility] omega-3 fatty acids-vitam in E (FISH OIL) 1,000 mg capsule 12-14 11:08: 41 Yes 1g Take 1 g by mouth daily. [facility] loratadine (CLARITIN LIQUI-GEL) 10 mg capsule 12-14 11:08: 41 Yes Take by mouth daily. [facility] ondansetron 4 mg tablet 12-14 11:08: 41 Yes 4mg Take 1 tablet by mouth every 8 (eight) hours as needed for Nausea and Vomiting (N/V). [facility] methylPREDN ISolone sod succ (SOLU-MEDRO L (PF)) injection 40 mg 12-14 11:00: 00 Yes 40mg 40 mg, Intravenou s, Q6H, First dose (after last modificati on) on Thu12/15/23 at 0600, Until Discontinu ed, Routine [facility] ipratropium -albuteroL (DUONEB) 0.5 mg-3 mg(2.5 mg base)/3 mL nebulizer solution 3 mL 12-14 08:08: 34 Yes 3mL 3 mL, Inhalation , QIDPRN, Starting on Thu12/15/23 at 0308, Until Discontinu ed, Routine, Wheezing, Shortness of Breath, Bronchospa sm, Chest tightness [facility] ipratropium -albuteroL (DUONEB) 0.5 mg-3 mg(2.5 mg base)/3 mL nebulizer solution 3 mL 12-14 03:19: 38 Yes 3mL 3 mL, Inhalation , QIDPRN, Starting on Thu12/14/23 at 2219, Until Discontinu ed, Routine, Wheezing, Shortness of Breath, Bronchospa sm, Chest tightness [facility] Sliding Scale Insulin - Lispro (HumaLOG) 12-14 02:00: 00 Yes [facility] mirtazapine (REMERON) tablet 15 mg 12-14 02:00: 00 Yes 15mg 15 mg, Oral, QHS, First dose on Thu12/14/23 at 2100, Until Discontinu ed, Routine [facility] atorvastati n (LIPITOR) tablet 40 mg 12-14 02:00: 00 Yes 40mg 40 mg, Oral, QHS, First dose on Thu12/14/23 at 2100, Until Discontinu ed, Routine [facility] lacosamide (VIMPAT) tablet 100 mg 12-14 01:00: 00 Yes 100mg 100 mg, Oral, BID, First dose on Thu12/14/23 at 2000, Until Discontinu ed, Routine [facility] gabapentin (NEURONTIN) capsule 100 mg 12-14 01:00: 00 Yes 100mg 100 mg, Oral, TID, First dose on Thu12/14/23 at 2000, Until Discontinu ed, Routine [facility] divalproex (DEPAKOTE) delayed release tablet 1,000 mg 12-14 01:00: 00 Yes 1000mg 1,000 mg, Oral, Q12H, First dose on Thu12/14/23 at 2000, Until Discontinu ed, Routine [facility] cyclobenzap rine (FLEXERIL) tablet 5 mg 12-14 01:00: 00 Yes 5mg 5 mg, Oral, TID, First dose on Thu12/14/23 at 1999, Until Discontinu ed, Routine [facility] apixaban (ELIQUIS) tablet 5 mg 12-14 01:00: 00 02-28 00:59 :00 No [id number] 5mg 5 mg, Oral, BID, 152 doses, First dose on Thu12/14/23 at 1999, Last dose on Thu02/28/24 at 0800, Routine, Indication s: DVT/PE [facility] ondansetron (ZOFRAN (PF)) injection 4 mg 12-14 00:15: 00 12-13 23:26 :00 No 4mg 4 mg, Slow IV Push, ONCE, 1 dose, On Thu12/14/23 at 191, Routine [facility] morpHINE (4 mg/mL) injection 4 mg 12-14 00:15: 00 12-13 23:27 :00 No 4mg 4 mg, Slow IV Push, ONCE, 1 dose, On Thu12/14/23 at 191, STAT [facility] metFORMIN 500 mg tablet 12-14 00:00: 00 01-14 04:59 :00 No [id number] 500mg Take 1 tablet by mouth in the morning for 30 days. [facility] empaglifloz in (JARDIANCE) 10 mg tablet 12-14 00:00: 00 01-14 04:59 :00 No [id number] 10mg Take 1 tablet by mouth in the morning for 30 days. [facility] furosemide 40 mg tablet 12-14 00:00: 00 01-09 00:00 :00 No [id number] 60mg Take 1.5 tablets by mouth every morning and evening for 60 days. [facility] glucagon (GLUCAGEN DIAGNOSTIC KIT) injection 1 mg 12-13 23:57: 51 Yes 1mg [facility] dextrose 50 % in water (D50W) injection 25 mL 12-13 23:57: 51 Yes 25mL [facility] ondansetron (ZOFRAN (PF)) injection 4 mg 12-13 23:57: 45 Yes 4mg [facility] morpHINE (2 mg/mL) injection 2 mg 12-13 23:57: 39 12-14 23:56 :39 No 2mg 2 mg, Slow IV Push, Q4HPRN, Starting on Thu12/14/23 at 1857, Until Thu12/15/23 at 1856, Routine, Pain (scale 7-10) [facility] HYDROcodone -acetaminop hen (NORCO 5) 5-325 mg tablet 1 tablet 12-13 23:57: 36 12-15 23:56 :36 No 1{tbl} 1 tablet, Oral, Q6HPRN, Starting on Thu12/14/23 at 1857, Until Thu12/16/23 at 1856, Routine, Pain (scale 4-6) [facility] acetaminoph en (TYLENOL) tablet 650 mg 12-13 23:57: 28 Yes 650mg 650 mg, Oral, Q6HPRN, Starting on Thu12/14/23 at 1857, Until Discontinu ed, Routine, Pain (scale 1-3), Temp > 38 C [facility] dicyclomine (BENTYL) tablet 20 mg 12-13 23:53: 34 Yes 20mg [facility] methylpredn isolone sod succ (SOLU-MEDRO L) injection 125 mg 12-13 23:00: 00 12-14 08:08 :57 No 125mg 125 mg, Intravenou s, Q6H, First dose on Thu12/14/23 at 1800, Until Discontinu ed, Routine [facility] ipratropium -albuteroL (DUONEB) 0.5 mg-3 mg(2.5 mg base)/3 mL nebulizer solution 3 mL 12-13 21:00: 00 Yes 3mL 3 mL, Inhalation , QID, First dose on Thu12/14/23 at 1600, Until Discontinu ed, Routine [facility] ondansetron (ZOFRAN (PF)) injection 4 mg 12-13 20:45: 00 12-13 19:40 :00 No 4mg 4 mg, Slow IV Push, ONCE, 1 dose, On Thu12/14/23 at 1545, Routine [facility] morpHINE (4 mg/mL) injection 4 mg 12-13 20:45: 00 12-13 19:41 :00 No 4mg 4 mg, Slow IV Push, ONCE, 1 dose, On Thu12/14/23 at 1545, STAT [facility] furosemide (LASIX) tablet 40 mg 12-03 14:00: 00 Yes 40mg 40 mg, Oral, DAILY, First dose (after last modificati on) on Thu12/04/23 at 0900, Until Discontinu ed, Routine [facility] mirtazapine (REMERON) tablet 15 mg 12-03 02:00: 00 Yes 15mg [facility] metoprolol succinate XL 25 mg 24 hr tablet 12-03 00:00: 00 Yes [id number] 12.5mg Take 0.5 tablets by mouth in the morning. [facility] Potassium Bicarb-Citr ic Acid (EFFER-K) effervescen t tablet 40 mEq 12-02 21:06: 00 12-02 23:09 :00 No 40meq 40 mEq, Oral, ONCE, 1 dose, On Thu12/03/23 at 1615, Routine [facility] metoprolol succinate XL (TOPROL XL) tablet 12.5 mg 12-02 16:00: 00 Yes 12.5mg 12.5 mg, Oral, DAILY, First dose on Thu12/03/23 at 1100, Until Discontinu ed, [facility] senn[facility] (SENOKOT[facility] tablet 8.6 mg 12-02 15:00: 00 Yes 8.6mg 8.6 mg, Oral, DAILY, First dose on Thu12/03/23 at 1000, Until Discontinu ed, Routine [facility] acetaminoph en (TYLENOL) tablet 650 mg 12-02 14:47: 07 Yes 650mg 650 mg, Oral, Q6HPRN, Starting on Thu12/03/23 at 0947, Until Discontinu ed, Routine, Pain (scale 1-3) [facility] ipratropium -albuteroL (DUONEB) 0.5 mg-3 mg(2.5 mg base)/3 mL nebulizer solution 3 mL 12-02 14:45: 00 Yes 3mL 3 mL, Inhalation , QID, First dose (after last modificati on) on Thu12/03/23 at 0945, Until Discontinu ed, Routine [facility] tamsulosin (FLOMAX) capsule 0.4 mg 12-02 14:00: 00 Yes .4mg 0.4 mg, Oral, DAILY, First dose on Thu12/03/23 at 0900, Until Discontinu ed, Routine [facility] DULoxetine (CYMBALTA) capsule 30 mg 12-02 14:00: 00 Yes 30mg 30 mg, Oral, DAILY, First dose on Thu12/03/23 at 0900, Until Discontinu ed, Routine [facility] digoxin (LANOXIN) tablet 125 mcg 12-02 14:00: 00 Yes 125ug 125 mcg, Oral, DAILY, First dose on Thu12/03/23 at 0900, Until Discontinu ed [facility] aspirin chewable tablet 81 mg 12-02 14:00: 00 Yes 81mg 81 mg, Oral, DAILY, First dose on Thu12/03/23 at 0900, Until Discontinu ed, Routine [facility] furosemide (LASIX) tablet 40 mg 12-02 14:00: 00 12-02 17:37 :33 No 40mg 40 mg, Oral, QAM+PM, First dose on Thu12/03/23 at 0900, Until Discontinu ed, Routine [facility] lacosamide (VIMPAT) tablet 100 mg 12-02 13:30: 00 Yes 100mg 100 mg, Oral, BID, First dose on Thu12/03/23 at 0830, Until Discontinu ed, Routine [facility] magnesium oxide (MAG-OX 400) tablet 400 mg 12-02 13:26: 00 12-02 14:24 :00 No 400mg 400 mg, Oral, ONCE, 1 dose, On Thu12/03/23 at 0830, Routine [facility] Potassium Bicarb-Citr ic Acid (EFFER-K) effervescen t tablet 40 mEq 12-02 13:19: 00 12-02 14:24 :00 No 40meq 40 mEq, Oral, ONCE, 1 dose, On Thu12/03/23 at 0830, Routine [facility] Sliding Scale Insulin - Lispro (HumaLOG) 12-02 13:00: 00 Yes Subcutaneo us, TID MEALS+HS, First dose on Thu12/03/23 at 0800, Until Discontinu ed, Routine [facility] gabapentin (NEURONTIN) capsule 100 mg 12-02 13:00: 00 Yes 100mg 100 mg, Oral, TID, First dose on Thu12/03/23 at 0800, Until Discontinu ed, Routine [facility] divalproex ER (DEPAKOTE ER) 24 hr tablet 1,000 mg 12-02 13:00: 00 Yes 1000mg 1,000 mg, Oral, Q12H, First dose on Thu12/03/23 at 0800, Until Discontinu ed, Routine [facility] cyclobenzap rine (FLEXERIL) tablet 5 mg 12-02 13:00: 00 Yes 5mg 5 mg, Oral, TID, First dose on Thu12/03/23 at 0800, Until Discontinu ed, Routine [facility] KCL (KLOR-CON M20) tablet 40 mEq 12-02 12:15: 00 12-02 14:24 :00 No 40meq 40 mEq, Oral, ONCE, 1 dose, On Thu12/03/23 at 0715, Routine [facility] KCL (KLOR-CON M20) tablet 20 mEq 12-02 04:00: 00 12-02 04:07 :00 No 20meq 20 mEq, Oral, ONCE, 1 dose, On Thu12/02/23 at 2300, Routine [facility] furosemide (LASIX) injection 40 mg 12-02 03:15: 00 12-02 02:36 :00 No 40mg 40 mg, Slow IV Push, ONCE, 1 dose, On Thu12/02/23 at 2215, Routine [facility] glucagon (GLUCAGEN DIAGNOSTIC KIT) injection 1 mg 12-02 02:54: 39 Yes 1mg 1 mg, Intramuscu lar, PRN, Starting on Thu12/02/23 at 2154, Until Discontinu ed, MICHAEL, Blood Glucose < or = 70 mg/dL and patient is NPO, unable to swallow or has mental changes. [facility] dextrose 50 % in water (D50W) injection 25 mL 12-02 02:54: 38 Yes 25mL 25 mL, Slow IV Push, PRN, Starting on Thu12/02/23 at 2154, Until Discontinu ed, MICHAEL, Blood Glucose < or = 70 mg/dL and patient is NPO, unable to swallow or has mental status changes. [facility] atorvastati n (LIPITOR) tablet 40 mg 12-02 02:00: 00 Yes 40mg 40 mg, Oral, QHS, First dose on Thu12/02/23 at 2100, Until Discontinu ed, Routine [facility] apixaban (ELIQUIS) tablet 5 mg 12-02 01:45: 00 02-28 00:59 :00 No [id number] 5mg 5 mg, Oral, BID, 176 doses, First dose on Thu12/02/23 at 2045, Last dose on Thu02/28/24 at 0800, Routine, Indication s: DVT/PE [facility] albuterol (PROVENTIL) 2.5 mg /3 mL (0.083 %) nebulizer solution 2.5 mg 12-02 01:40: 57 Yes 2.5mg [facility] ondansetron (ZOFRAN (PF)) injection 4 mg 12-02 01:02: 39 Yes 4mg 4 mg, Slow IV Push, Q6HPRN, Nausea and Vomiting (N/V), Starting on Thu12/02/23 at 2002, Doses of ondansetro n 16 mg and above need to be administer ed via IV piggyback. For Dose >=24mg ECG monitoring is advisable. [facility] lisinopriL 2.5 mg tablet 12-02 00:00: 00 Yes [id number] 2.5mg Take 1 tablet by mouth in the morning. [facility] acetaminoph en (OFIRMEV) IV piggyback 1,000 mg 12-01 22:15: 00 12-01 21:51 :00 No 1000mg 1,000 mg, IV Piggyback, at 400 mL/hr Administer over 15 Minutes, ONCE, 1 dose, On Thu12/02/23 at 1715, Routine, Is the patient strict NPO and unable to tolerate oral medication s? Yes [facility] iopamidol (ISOVUE 370-500 mL) injection 85 mL 12-01 19:15: 00 12-01 19:33 :00 No [id number] 85mL 85 mL, Intravenou s, ONCE, 1 dose, On Thu12/02/23 at 1415, Routine [facility] FENTanyl PF (SUBLIMAZE (PF)) injection 25 mcg 12-01 18:30: 00 12-01 19:38 :00 No 25ug 25 mcg, Slow IV Push, ONCE, 1 dose, On Thu12/02/23 at 1330, STAT [facility] NaCl 0.9% (NS) bolus infusion 1,000 mL 12-01 18:15: 00 12-01 21:00 :00 No 1000mL at 999 mL/hr, 1,000 mL, IV Infusion, ONCE, 1 dose, On Thu12/02/23 at 1315, STAT [facility] DULoxetine 30 mg capsule 11-28 00:00: 00 Yes [id number] 30mg Take 1 capsule by mouth in the morning. [facility] digoxin 125 mcg tablet 11-28 00:00: 00 Yes [id number] .125mg Take 1 tablet by mouth in the morning. [facility] tamsulosin 0.4 mg 24 hr capsule 11-28 00:00: 00 02-27 04:59 :00 No [id number] .4mg Take 1 capsule by mouth in the morning for 90 days. [facility] metoprolol succinate XL 50 mg 24 hr tablet 11-28 00:00: 00 12-02 00:00 :00 No [id number] 50mg Take 1 tablet by mouth in the morning. [facility] lisinopriL 5 mg tablet 11-28 00:00: 00 12-02 00:00 :00 No [id number] 5mg Take 1 tablet by mouth in the morning. [facility] spironolact one 25 mg tablet 11-28 00:00: 00 12-02 00:00 :00 No [id number] 50mg Take 2 tablets by mouth in the morning. [facility] metoprolol succinate XL (TOPROL XL) tablet 50 mg 11-27 14:00: 00 Yes 50mg 50 mg, Oral, DAILY, First dose (after last modificati on) on 11/28/23 at 0900, Until Discontinu ed, Routine [facility] KCL (KLOR-CON M20) tablet 40 mEq 11-27 12:30: 00 11-27 13:39 :00 No 40meq 40 mEq, Oral, ONCE, 1 dose, On 11/28/23 at 0730, Routine [facility] potassium chloride in water (KCL) 20 mEq/100 mL RTU IVPB 20 mEq 11-27 11:00: 00 11-27 13:40 :00 No 20meq 20 mEq, IV Piggyback, ONCE, 1 dose, On 11/28/23 at 0600, 100 mL [facility] clonazePAM (KLONOPIN) tablet 0.5 mg 11-27 02:45: 00 Yes .5mg 0.5 mg, Oral, QHS, First dose on Thu11/27/23 at 2145, Until Discontinu ed, Routine [facility] lacosamide (VIMPAT) tablet 100 mg 11-27 01:00: 00 Yes 100mg 100 mg, Oral, BID, First dose (after last modificati on) on Thu11/27/23 at 2000, Until Discontinu ed, Routine [facility] gabapentin 100 mg capsule 11-27 00:00: 00 Yes [id number] 100mg Take 1 capsule by mouth in the morning and 1 capsule at noon and 1 capsule in the evening. [facility] divalproex ER 500 mg 24 hr tablet 11-27 00:00: 00 04-03 00:00 :00 No [id number] 1000mg Take 2 tablets by mouth every 12 (twelve) hours. [facility] apixaban 5 mg tablet 11-27 00:00: 00 03-01 04:59 :00 No [id number] Take 2 tablets by mouth 2 (two) times daily for 3 days, THEN 1 tablet 2 (two) times daily for 90 days. Indication s: history of deep vein thrombosis [facility] furosemide 40 mg tablet 11-27 00:00: 00 12-14 00:00 :00 No [id number] 40mg Take 1 tablet by mouth every morning and evening. [facility] lacosamide (VIMPAT) 200 mg in NaCl 0.9% (NS) 50 mL piggyback 11-26 18:45: 00 11-26 23:04 :00 No 200mg 200 mg, IV Piggyback, ONCE, 1 dose, On Thu11/27/23 at 1345, Administer over 30 Minutes, 50 mL [facility] furosemide (LASIX) tablet 40 mg 11-26 14:00: 00 Yes 40mg 40 mg, Oral, QAM+PM, First dose on Thu11/27/23 at 0900, Until Discontinu ed, Routine [facility] divalproex ER (DEPAKOTE ER) 24 hr tablet 1,000 mg 11-26 13:00: 00 Yes 1000mg 1,000 mg, Oral, Q12H, First dose (after last modificati on) on Thu11/27/23 at 0800, Until Discontinu ed, Routine [facility] furosemide (LASIX) injection 40 mg 11-26 01:00: 00 11-26 01:57 :00 No 40mg 40 mg, Slow IV Push, BID, 1 dose, First dose (after last modificati on) on Thu11/26/23 at 2000, Routine [facility] divalproex ER (DEPAKOTE ER) 24 hr tablet 1,250 mg 11-26 01:00: 00 11-26 02:38 :40 No 1250mg 1,250 mg, Oral, Q12H, First dose (after last modificati on) on Thu11/26/23 at 2000, Until Discontinu ed, Routine [facility] cyanocobala min (DODEX) injection 1,000 mcg 11-25 18:30: 00 11-25 19:31 :00 No 1000ug 1,000 mcg, Intramuscu lar, ONCE, 1 dose, On Thu11/26/23 at 1330, Routine [facility] thiamine (VITAMIN B1) 100 mg in NaCl 0.9% (NS) piggyback 11-25 18:00: 00 11-30 13:59 :00 No 100mg IV Piggyback, DAILY, 5 doses, First dose on Thu11/26/23 at 1300, Last dose on Thu11/30/23 at 0900, 50 mL [facility] digoxin (LANOXIN) tablet 125 mcg 11-25 16:30: 00 Yes 125ug 125 mcg, Oral, DAILY, First dose on Thu11/26/23 at 1130, Until Discontinu ed, Routine [facility] metoprolol succinate XL (TOPROL XL) tablet 25 mg 11-25 16:15: 00 11-27 13:09 :49 No 25mg 25 mg, Oral, DAILY, First dose on Thu11/26/23 at 1115, Until Discontinu ed, Routine [facility] apixaban (ELIQUIS) tablet 10 mg 2023-11-25 01:00: 00 11-30 00:59 :00 No 10mg [...] Routine, Indication s: DVT/PE [Order 2 End] [facility] furosemide (LASIX) injection 40 mg 2023-11-25 01:00: 00 11-25 16:08 :20 No 40mg 40 mg, Slow IV Push, BID, First dose (after last modificati on) on Thu11/25/23 at 1999, Until Discontinu ed, Routine [facility] spironolact one (ALDACTONE) tablet 12.5 mg 2023-11-24 21:00: 00 Yes 12.5mg 12.5 mg, Oral, DAILY, First dose on Thu11/25/23 at 1600, Until Discontinu ed, Routine [facility] lisinopriL (PRINIVIL,Z ESTRIL) tablet 5 mg 2023-0 11-24 21:00: 00 Yes 5mg 5 mg, Oral, DAILY, First dose on Thu11/25/23 at 1600, Until Discontinu ed, Routine [facility] apixaban (ELIQUIS) tablet 5 mg 2023-0 11-24 16:30: 00 11-24 16:18 :00 No 5mg 5 mg, Oral, ONCE, 1 dose, On Thu11/25/23 at 1130, Routine, Indication s: DVT/PE [facility] apixaban (ELIQUIS) tablet 5 mg 11-24 14:00: 00 11-24 15:40 :42 No 5mg 5 mg, Oral, BID, 11 doses, First dose (after last modificati on) on Thu11/25/23 at 0900, Last dose on Thu11/30/23 at 0800, Routine, Indication s: DVT/PE [facility] divalproex ER (DEPAKOTE ER) 24 hr tablet 1,000 mg 11-24 13:00: 00 11-25 17:41 :19 No 1000mg 1,000 mg, Oral, Q12H, First dose (after last modificati on) on Thu11/25/23 at 0800, Until Discontinu ed, Routine [facility] ondansetron (ZOFRAN (PF)) injection 4 mg 11-24 03:45: 00 11-24 02:49 :00 No 4mg 4 mg, Slow IV Push, ONCE, On Thu11/24/23 at 2245, For 1 dose, Doses of ondansetro n 16 mg and above need to be administer ed via IV piggyback. For Dose >=24mg ECG monitoring is advisable. [facility] divalproex (DEPAKOTE) delayed release tablet 500 mg 11-24 03:45: 00 11-24 04:49 :00 No 500mg 500 mg, Oral, ONCE, 1 dose, On Thu11/24/23 at 2245, Routine [facility] nitroglycer in (NITROSTAT) sublingual tablet 0.4 mg 11-24 02:36: 01 Yes .4mg 0.4 mg, Sublingual , Q5MIN PRN, Starting on Thu11/24/23 at 2136, Until Discontinu ed, Routine, Chest pain [facility] nystatin (NILSTAT) 100,000 unit/mL suspension 500,000 Units 11-24 01:15: 00 11-26 20:18 :35 No 5mL 500,000 Units (5 mL), Oral, QID, First dose on Thu11/24/23 at 2015, Until [facility]continu ed, [facility]amin[facility] (TYLENOL #3) 300-30 mg tablet 1 tablet 11-24 01:07: 37 Yes 1{tbl} 1 tablet, Oral, Q6HPRN, Starting on Thu11/24/23 at 2007, Until Discontinu ed, Routine, Pain (scale 4-6) [facility] iopamidol (ISOVUE 370-500 mL) injection 100 mL 11-23 23:15: 00 11-23 22:15 :00 No [id number] 100mL 100 mL, Intravenou s, ONCE, 1 dose, On Thu11/24/23 at 1815, Routine [facility] milrinone in 5 % dextrose (PRIMACOR) 20 mg/100 mL (200 mcg/mL) infusion RTU 11-23 20:45: 00 11-24 18:50 :54 No .25ug/k g/min 0.25 mcg/kg/min ?94.5 kg (7.0875 mL/hr, rounded to 7.09 mL/hr), IV Infusion, CONTINUOUS , Starting on Thu11/24/23 at 1545, 1. Dose to be adjusted by physician or provider. 2. Notify MD if MAP < 65 mmHG. [facility] polyethylen e glycol 3350 powder 17 g 11-23 19:15: 00 Yes 17g 17 g, Oral, DAILY, First dose on Thu11/24/23 at 1415, Until Discontinu ed, Routine [facility] ipratropium -albuteroL (DUONEB) 0.5 mg-3 mg(2.5 mg base)/3 mL nebulizer solution 3 mL 11-23 19:00: 00 Yes 3mL 3 mL, Inhalation , TID, First dose (after last modificati on) on Thu11/24/23 at 1400, Until Discontinu ed, [facility] ondans[facility] (ZOFRAN (PF)) injection 4 mg 11-23 17:16: 00 11-23 17:24 :00 No 4mg 4 mg, Slow IV Push, ONCE, On Thu11/24/23 at 1230, For 1 dose, Doses of ondansetro n 16 mg and above need to be administer ed via IV piggyback. For Dose >=24mg ECG monitoring is advisable. [facility] apixaban (ELIQUIS) tablet 10 mg 11-23 15:45: 00 11-24 13:38 :20 No 10mg 10 mg, Oral, BID, 14 doses, First dose on Thu11/24/23 at 1045, Last dose on Thu11/30/23 at 2000, Routine, Indication s: DVT/PE [facility] milrinone in 5 % dextrose (PRIMACOR) 20 mg/100 mL (200 mcg/mL) infusion RTU 11-23 15:45: 00 11-23 20:33 :33 No .125ug/ kg/min 0.125 mcg/kg/min ?94.5 kg (3.5438 mL/hr, rounded to 3.54 mL/hr), IV Infusion, CONTINUOUS , Starting on Thu11/24/23 at 1045, 1. Dose to be adjusted by physician or provider. 2. Notify MD if MAP < 65 mmHG. [facility] HYDROcodone -acetaminop hen (NORCO 5) 5-325 mg tablet 1 tablet 11-23 14:28: 00 11-23 15:37 :00 No 1{tbl} 1 tablet, Oral, ONCE, 1 dose, On Thu11/24/23 at 0930, Routine [facility] hydrALAZINE (APRESOLINE ) tablet 10 mg 11-23 12:30: 00 11-25 13:28 :25 No 10mg 10 mg, Oral, Q8H, First dose on Thu11/24/23 at 0730, Until Discontinu ed, Routine [facility] iohexoL (OMNIPAQUE 180-20 mL) injection 11-22 20:31: 56 11-22 20:32 :10 No ONCE INTRA PROCEDURE, Starting on Thu11/23/23 at 1531, Until Thu11/23/23 at 1532, Routine, CV Intraproce dure [facility] nitroglycer in (TRIDIL) 2 mg in 10 mL D5W for Cardiac Cath 11-22 19:32: 38 11-22 20:32 :10 No ONCE INTRA PROCEDURE, Starting on Thu11/23/23 at 1432, Until Thu11/23/23 at 1532, Routine, CV Intraproce dure [facility] heparin 1,000 unit/mL injection 11-22 19:31: 28 11-22 20:32 :10 No ONCE INTRA PROCEDURE, Starting on Thu11/23/23 at 1431, Until Thu11/23/23 at 1532, Routine, CV Intraproce dure [facility] midazolam (VERSED) injection 11-22 19:24: 54 11-22 20:32 :10 No ONCE INTRA PROCEDURE, Starting on Thu11/23/23 at 1424, Until Thu11/23/23 at 1532, Routine, CV Intraproce dure [facility] FENTanyl PF (SUBLIMAZE (PF)) injection 11-22 19:21: 00 11-22 20:32 :10 No ONCE INTRA PROCEDURE, Starting on Thu11/23/23 at 1421, Until Thu11/23/23 at 1532, Routine, CV Intraproce dure [facility] lidocaine 1% (PF) (XYLOCAINE) injection 11-22 19:20: 00 11-22 20:32 :10 No ONCE INTRA PROCEDURE, Starting on Thu11/23/23 at 1420, Until Thu11/23/23 at 1532, Routine, CV Intraproce dure [facility] furosemide 20 mg tablet 11-22 15:47: 27 11-27 00:00 :00 No 20mg Take 1 tablet by mouth every morning and evening. [facility] milrinone in 5 % dextrose (PRIMACOR) 20 mg/100 mL (200 mcg/mL) infusion RTU 11-22 15:45: 00 11-23 15:32 :54 No .25ug/k g/min 0.25 mcg/kg/min ?94.5 kg (7.0875 mL/hr, rounded to 7.09 mL/hr), IV Infusion, CONTINUOUS , Starting on Thu11/23/23 at 1045, 1. Dose to be adjusted by physician or provider. 2. Notify MD if MAP < 65 mmHG. [facility] DULoxetine (CYMBALTA) capsule 30 mg 11-22 14:00: 00 11-27 00:00 :00 No 30mg 30 mg, Oral, DAILY, First dose on Thu11/23/23 at 0900, Until Discontinu ed, Routine [facility] magnesium oxide (MAG-OX 400) tablet 400 mg 11-22 13:45: 00 11-22 14:00 :00 No 400mg 400 mg, Oral, ONCE, 1 dose, On Thu11/23/23 at 0845, Routine [facility] hydrOXYzine (ATARAX) tablet 50 mg 11-22 13:42: 15 Yes 50mg 50 mg, Oral, Q8HPRN, Starting on Thu11/23/23 at 0842, Until Discontinu ed, Routine, Anxiety [facility] KCL (KLOR-CON M20) tablet 40 mEq 11-22 10:45: 00 11-22 10:20 :00 No 40meq 40 mEq, Oral, ONCE, 1 dose, On Thu11/23/23 at 0545, Routine [facility] mirtazapine (REMERON) tablet 15 mg 11-22 02:00: 00 Yes 15mg 15 mg, Oral, QHS, First dose on Thu11/22/23 at 2100, Until Discontinu ed, Routine [facility] atorvastati n (LIPITOR) tablet 40 mg 11-22 02:00: 00 11-25 16:05 :43 No 40mg 40 mg, Oral, QHS, First dose on Thu11/22/23 at 2100, Until Discontinu ed, Routine [facility] divalproex (DEPAKOTE) delayed release tablet 500 mg 11-22 01:00: 00 11-23 12:27 :34 No 500mg 500 mg, Oral, BID, First dose on 11/22/23 at 2000, Until Discontinu ed, Routine [facility] milrinone in 5 % dextrose (PRIMACOR) 20 mg/100 mL (200 mcg/mL) infusion RTU 11-21 19:30: 00 11-22 15:38 :58 No .125ug/ kg/min 0.125 mcg/kg/min ?94.5 kg (3.5438 mL/hr, rounded to 3.54 mL/hr), IV Infusion, CONTINUOUS , Starting on Thu11/22/23 at 1430, 1. Dose to be adjusted by physician or provider. 2. Notify MD if MAP < 65 mmHG. [facility] diazePAM (VALIUM) injection 2 mg 11-21 19:28: 00 11-21 20:15 :00 No 2mg 2 mg, Intravenou s, ONCE, 1 dose, On Thu11/22/23 at 1430, Routine [facility] gabapentin (NEURONTIN) capsule 100 mg 11-21 19:00: 00 Yes 100mg 100 mg, Oral, TID, First dose on 11/22/23 at 1400, Until Discontinu ed, Routine [facility] furosemide (LASIX) injection 40 mg 11-21 19:00: 00 11-24 18:54 :28 No 40mg 40 mg, Slow IV Push, TID, First dose on Thu11/22/23 at 1400, Until Discontinu ed, Routine [facility] ondansetron (ZOFRAN-ODT ) disintegrat ing tablet 4 mg 11-21 18:45: 00 11-21 18:25 :00 No 4mg 4 mg, Oral, ONCE, 1 dose, On Thu11/22/23 at 1345, Routine [facility] perflutren lipid microsphere s (DEFINITY) injection 2 mL 11-21 16:45: 00 11-21 16:45 :00 No [id number] 2mL 2 mL, IV Push, ONCE, 1 dose, On 11/22/23 at 1145, Routine [facility] furosemide (LASIX) injection 40 mg 11-21 14:15: 00 11-21 18:23 :20 No 40mg 40 mg, Slow IV Push, BID, 2 doses, First dose on 11/22/23 at 0915, Last dose on 11/22/23 at 2000, Routine [facility] losartan (COZAAR) tablet 25 mg 11-21 14:15: 00 11-21 20:14 :04 No 25mg 25 mg, Oral, DAILY, First dose on 11/22/23 at 0915, Until Discontinu ed, Routine [facility] tamsulosin (FLOMAX) capsule 0.4 mg 11-21 14:00: 00 Yes .4mg 0.4 mg, Oral, DAILY, First dose on 11/22/23 at 0900, Until Discontinu ed, Routine [facility] pantoprazol e (PROTONIX) EC tablet 40 mg 11-21 14:00: 00 Yes 40mg 40 mg, Oral, DAILY, First dose on 11/22/23 at 0900, Until Discontinu ed, Routine [facility] aspirin chewable tablet 81 mg 11-21 14:00: 00 Yes 81mg 81 mg, Oral, DAILY, First dose on 11/22/23 at 0900, Until Discontinu ed, Routine [facility] predniSONE (DELTASONE) tablet 40 mg 11-21 14:00: 00 11-25 13:14 :00 No 40mg 40 mg, Oral, DAILY, 5 doses, First dose on 11/22/23 at 0900, Last dose on Arpita 11/26/23 at 0900, Routine [facility] iopamidol (ISOVUE 370-500 mL) injection 80 mL 11-21 14:00: 00 11-21 14:00 :00 No [id number] 80mL 80 mL, Intravenou s, ONCE, 1 dose, On Thu11/22/23 at 0900, Routine [facility] Sliding Scale Insulin - Lispro (HumaLOG) 11-21 13:00: 00 Yes Subcutaneo us, TID MEALS+HS, First dose on Thu11/22/23 at 0800, Until Discontinu ed, Routine [facility] divalproex ER (DEPAKOTE ER) 24 hr tablet 500 mg 11-21 13:00: 00 11-24 02:43 :24 No 500mg 500 mg, Oral, Q12H, First dose on Thu11/22/23 at 0800, Until Discontinu ed, Routine [facility] ipratropium -albuteroL (DUONEB) 0.5 mg-3 mg(2.5 mg base)/3 mL nebulizer solution 3 mL 11-21 09:00: 00 11-23 15:56 :58 No 3mL 3 mL, Inhalation , Q4H, First dose on Thu11/22/23 at 0400, Until Discontinu ed, Routine [facility] furosemide (LASIX) injection 40 mg 11-21 07:45: 00 11-21 07:15 :00 No 40mg 40 mg, Slow IV Push, ONCE, 1 dose, On Thu11/22/23 at 0245, Routine [facility] sodium chloride 7% (HYPER-IRVIN) nebulizer solution 4 mL 11-21 07:00: 00 11-23 14:32 :09 No 4mL 4 mL, Inhalation , DAILY, First dose on Thu11/22/23 at 0200, Until Discontinu ed, Routine [facility] morpHINE (2 mg/mL) injection 2 mg 11-21 06:52: 11 Yes 2mg 2 mg, Slow IV Push, Q4HPRN, Starting on 11/22/23 at 0152, Until Discontinu ed, Routine, Pain (scale 7-10) [facility] heparin 25,000 Units/250 mL (Premixed Bag) in 0.45 % NS 11-21 06:43: 53 11-23 15:32 :54 No 0U/h 0-2,750 Units/hr (0-27.5 mL/hr), IV Infusion, TITRATE, Parameters in Admin. Instr., Starting on 11/22/23 at 0143, Initiate dosing: -Patient 83 kg [...] ant therapy. Range, Dosing and Testing: [facility], AND [facility] ONLY - aPTT < 35: [...] ADJUST INITIAL BOLUS OR INITIAL INFUSION RATE. [facility] heparin (1,000 unit/mL, 10 mL vial) for Rebolusing 11-21 06:43: 39 11-23 15:32 :54 No 3000U FOR REBOLUSING , Starting on Thu11/22/23 at 0143, Until 11/24/23 at 1032, Routine, Dosing based on aPPT testing parameters (refer to continuous heparin drip order). [facility] glucagon (GLUCAGEN DIAGNOSTIC KIT) injection 1 mg 11-21 06:36: 57 Yes 1mg [facility] dextrose 50 % in water (D50W) injection 25 mL 11-21 06:36: 57 Yes 25mL [facility] acetaminoph en (TYLENOL) tablet 650 mg 11-21 06:36: 44 Yes 650mg 650 mg, Oral, Q6HPRN, Starting on Thu11/22/23 at 0136, Until Discontinu ed, Routine, Pain (scale 1-3) [facility] ondansetron (ZOFRAN (PF)) injection 4 mg 11-21 04:45: 00 11-21 03:46 :00 No 4mg 4 mg, Slow IV Push, ONCE, 1 dose, On 11/21/23 at 2345, MICHAEL [facility] acetaminoph en (TYLENOL) tablet 975 mg 11-21 04:45: 00 11-21 03:44 :00 No 975mg 975 mg, Oral, ONCE, 1 dose, On 11/21/23 at 2345, [facility] HEPARIN SODIUM (PORCINE) 1,000 UNIT/ML BOLUS ACS ORDER SET 11-21 04:15: 00 11-21 04:33 :00 No 4000U 4,000 Units, IV Push, ONCE, 1 dose, On 11/21/23 at 2315, [facility] morpHINE (4 mg/mL) injection 4 mg 11-21 04:15: 00 11-21 04:27 :00 No 4mg 4 mg, Slow IV Push, ONCE, 1 dose, On 11/21/23 at 2315, [facility] methylpredn isolone sod succ (SOLU-MEDRO L) injection 125 mg 11-21 04:15: 00 11-21 03:24 :00 No 125mg 125 mg, Slow IV Push, ONCE NOW, 1 dose, On 11/21/23 at 2315, [facility] heparin 25,000 Units/250 mL (Premixed Bag) [...] ant therapy. Range, Dosing and Testing: FOR [place], [facility], AND [facility] ONLY - aPTT < 35: [...] once therapeuti c levels are reached. FOR [facility] ONLY - aPTT < 40: Bolus [...] ADJUST INITIAL BOLUS OR INITIAL [facility]FUS[facility]. [facility] -al[facility]L (DUONEB) 0.5 mg-3 mg(2.5 mg base)/3 mL nebulizer solution 3 mL 11-21 04:00: 00 11-21 02:51 :00 No 3mL 3 mL, Inhalation , ONCE, 1 dose, On 11/21/23 at 2300, [facility]EL [facility] ipratropium -albuteroL (DUONEB) 0.5 mg-3 mg(2.5 mg base)/3 mL nebulizer solution 3 mL 11-21 03:30: 00 11-21 02:37 :00 No 3mL 3 mL, Inhalation , ONCE, 1 dose, On 11/21/23 at 2230, MICHAEL [facility] NaCl 0.9% (NS) bolus infusion 500 mL 11-21 03:15: 00 11-21 04:14 :00 No 500mL at 999 mL/hr, 500 mL, IV Infusion, ONCE, 1 dose, On 11/21/23 at 2215, STAT [facility] mirtazapine 15 mg tablet 09-30 00:00: 00 Yes 15mg Take 1 tablet by mouth at bedtime. [facility] Metformin HCl 500 MG oral Tablet 09-29 14:28: 11 Yes 500mg Take 1 tablet (500 mg total) by mouth daily (with breakfast) . Cynthia gonzalez Ibuprofen (MOTRIN) 200 MG oral Tablet 09-29 14:27: 32 09-29 00:00 :00 No 200mg Q.[id number] 3D Take 1 tablet (200 mg total) by mouth every 8 hours as needed for pain. Cynthia gonzalez Fluticasone -Umeclidin- Vilant (Trelegy Ellipta) 100-62.5-25 MCG/ACT inhalation AEROSOL POWDER, BREATH ACTIVATED 09-29 00:00: 00 Yes [id number] 1{puff} Inhale 1 puff into the lungs daily. Cynthia gonzalez Carvedilol 12.5 MG oral Tablet 09-29 00:00: 00 Yes [id number] 12.5mg Take 1 tablet (12.5 mg total) by mouth in the morning and 1 tablet (12.5 mg total) in the evening. Take with meals. Cynthia gonzalez Duloxetine HCl [address] Particles 09-29 00:00: 00 Yes [id number] 20mg Take 1 capsule (20 mg total) by mouth daily. [facility]thia gonzalez Acetaminoph en-Codeine (TYLENOL/CO DEINE #3) 300-30 MG oral Tablet 09-29 00:00: 00 Yes [id number] 1{tbl} Q.25D Take 1 tablet by mouth every 6 hours as needed for pain. Cynthia gonzalez Clonazepam 1 MG oral Tablet 09-29 00:00: 00 Yes [id number] 1mg QD Take 1 tablet (1 mg total) by mouth nightly as needed for anxiety. Cynthia gonzalez spironolact one 25 mg tablet 09-29 00:00: 00 11-27 00:00 :00 No 25mg Take 1 tablet by mouth in the morning and 1 tablet in the evening. [facility] metFORMIN 500 mg tablet 09-28 00:00: 00 12-14 00:00 :00 No 500mg Take 1 tablet by mouth in the morning. [facility] Carvedilol 12.5 MG oral Tablet 09-28 00:00: [...] MG oral Tablet 09-11 00:00: 00 Yes [id number] 15mg QD Take 1 tablet (15 mg total) by mouth nightly as needed. Cynthia gonzalez Acetaminoph en-Codeine (TYLENOL/CO DEINE #3) 300-30 MG oral Tablet 09-11 00:00: 00 09-29 00:00 :00 No [id number] 1{tbl} Q.25D Take 1 tablet by mouth every 6 hours as needed for pain. Cynthia gonzalez DULoxetine (CYMBALTA) 60 MG capsule 09-09 00:00: 00 10-08 23:59 :00 No 60mg QD Take 1 capsule (60 mg total) by mouth daily for 30 days. [facility] varenicline (CHANTIX) 1 mg tablet 09-08 10:51: 03 Yes 1mg Q.5D Take 1 tablet (1 mg total) by mouth 2 (two) times daily Give with meals and with a full glass of water.. [facility] atorvastati n (LIPITOR) 20 MG tablet 09-08 10:51: 03 Yes 20mg QD Take 1 tablet (20 mg total) by mouth daily. [facility] Cyanocobala min (Vitamin B-12) 1000 MCG oral Tablet 09-08 00:00: 00 10-08 04:59 :00 No 1000ug Take 1 tablet (1,000 mcg total) by mouth daily. Cynthia gonzalez lidocaine (LIDODERM) 4 % patch 09-08 00:00: 00 10-07 23:59 :00 No 3{patch } Q24H Place 3 patches onto the skin daily for 30 days. [facility] metoprolol succinate (TOPROL-XL) 25 MG 24 hr tablet 09-07 16:47: 05 09-07 00:00 :00 No 25mg QD Take 1 tablet (25 mg total) by mouth daily. [facility] albuterol HFA (VENTOLIN HFA) 90 mcg/actuati on inhaler 09-07 16:47: 05 09-07 00:00 :00 No 1{puff} Inhale 1 puff by mouth via inhaler every 6 (six) hours as needed for Wheezing. [facility] fluticasone -umeclidin- vilanter (Trelegy Ellipta) 200-62.5-25 mcg DsDv 09-07 16:47: 05 09-07 00:00 :00 No QD Inhale by mouth via inhaler daily. [facility] Albuterol HFA 108 (90 Base) [...] total) by mouth daily for 30 days. [facility] polyethylen e glycol (GLYCOLAX) 17 gram packet 09-07 00:00: 00 10-06 23:59 :00 No 17g Q.5D Take 17 g by mouth 2 (two) times daily for 30 days. [facility] gabapentin (NEURONTIN) 400 MG capsule 09-07 00:00: 00 10-06 23:59 :00 No 400mg [id number] 3D Take 1 capsule (400 mg total) by mouth 3 (three) times daily for 30 days. [facility] furosemide (LASIX) 20 MG tablet 09-07 00:00: 00 10-06 23:59 :00 No 20mg QD Take 1 tablet (20 mg total) by mouth daily for 30 days. [facility] fluticasone -umeclidin- vilanter (Trelegy Ellipta) 200-62.5-25 mcg DsDv 09-07 00:00: 00 10-06 23:59 :00 No 1{inhal ation} QD Inhale 1 Inhalation by mouth via inhaler daily for 30 days. [facility] metoprolol succinate (TOPROL-XL) 25 MG 24 hr tablet 09-07 00:00: 00 10-06 23:59 :00 No 25mg QD Take 1 tablet (25 mg total) by mouth daily for 30 days. [facility] lacosamide (VIMPAT) 100 mg in NaCl 0.9% (NS) 50 mL piggyback 08-12 21:15: 00 08-12 21:23 :00 No 100mg 100 mg, IV Piggyback, ONCE, 1 dose, On Thu08/12/23 at 1515, Administer over 30 Minutes, 50 mL
Facu lty member approving Restricted medication : MJ BRYAN shawn [facility] Dicyclomine HCl 20 MG oral Tablet 08-06 [...] total) by mouth daily for 5 days. [facility] varenicline (CHANTIX) 1 mg tablet 2022-07 19:45: 32 Yes 1mg Q.5D Take 1 tablet (1 mg total) by mouth 2 (two) times daily Give with meals and with a full glass of water.. [facility] atorvastati n (LIPITOR) 20 MG tablet 2022-07 19:45: 32 Yes 20mg QD Take 1 tablet (20 mg total) by mouth daily. [facility] metoprolol succinate (TOPROL-XL) 25 MG 24 hr tablet 2022-07 19:45: 32 09-07 00:00 :00 No 25mg QD Take 1 tablet (25 mg total) by mouth daily. [facility] albuterol HFA (VENTOLIN HFA) 90 mcg/actuati on inhaler 2022-07 19:45: 32 09-07 00:00 :00 No 1{puff} Inhale 1 puff by mouth via inhaler every 6 (six) hours as needed for Wheezing. [facility] fluticasone -umeclidin- vilanter (Trelegy Ellipta) 200-62.5-25 mcg DsDv 2022-07 19:45: 32 09-07 00:00 :00 No QD Inhale by mouth via inhaler daily. [facility] acetaminoph en-codeine (TYLENOL #3) 300-30 mg per tablet 2022-07 18:02: 00 06-16 00:00 :00 No 1{tbl} Take 1 tablet by mouth every 4 (four) hours as needed for Pain. [facility] DULoxetine (CYMBALTA) 30 MG capsule 2022-07 00:00: 00 09-08 00:00 :00 No 30mg QD Take 1 capsule (30 mg total) by mouth daily for 90 days. [facility] metroNIDAZO LE (FLAGYL) 500 MG tablet 2022-07 00:00: 00 07-04 23:59 :00 No 500mg Take 1 tablet (500 mg total) by mouth every 8 (eight) hours for 18 days. [facility] ciprofloxac in HCl (CIPRO) 500 MG tablet 2022-07 00:00: 00 07-04 23:59 :00 No 500mg Q.5D Take 1 tablet (500 mg total) by mouth 2 (two) times daily for 18 days. [facility] cyclobenzap rine (FLEXERIL) 10 MG tablet 2022-07 00:00: 00 06-26 23:59 :00 No 10mg Q.[id number] 3D Take 1 tablet (10 mg total) by mouth 3 (three) times daily for 10 days. [facility] oxyCODONE (OXY-IR) 10 mg tablet 2022-07 00:00: 00 06-26 23:59 :00 No 10mg Take 1 tablet (10 mg total) by mouth every 8 (eight) hours as needed for up to 10 days. Max Daily Amount: 30 mg [facility] nystatin (MYCOSTATIN ) 100,000 unit/mL suspension 2022-07 00:00: 00 06-21 23:59 :00 No [id number] Q.25D Take 5 mLs (500,000 Units total) by mouth 4 (four) times daily for 5 days. [facility] dexAMETHaso ne (DECADRON) 2 MG tablet 2022-07 00:00: 00 06-08 23:59 :00 No 1mg Take 0.5 tablets (1 mg total) by mouth 2 (two) times daily with breakfast and dinner for 2 days. [facility] metoprolol succinate (TOPROL-XL) 25 MG 24 hr tablet 2022-07 17:44: 21 Yes 25mg QD Take 1 tablet (25 mg total) by mouth daily. [facility] varenicline (CHANTIX) 1 mg tablet 2022-07 17:44: 21 Yes 1mg Q.5D Take 1 tablet (1 mg total) by mouth 2 (two) times daily Give with meals and with a full glass of water.. [facility] albuterol HFA (VENTOLIN HFA) 90 mcg/actuati on inhaler 2022-07 17:44: 21 Yes 1{puff} Inhale 1 puff by mouth via inhaler every 6 (six) hours as needed for Wheezing. [facility] fluticasone -umeclidin- vilanter (Trelegy Ellipta) 200-62.5-25 mcg DsDv 2022-07 17:44: 21 Yes QD Inhale by mouth via inhaler daily. [facility] atorvastati n (LIPITOR) 20 MG tablet 2022-07 17:44: 21 Yes 20mg QD Take 1 tablet (20 mg total) by mouth daily. [facility] acetaminoph en-codeine (TYLENOL #3) 300-30 mg per tablet 2022-07 17:44: 21 Yes 1{tbl} Take 1 tablet by mouth every 4 (four) hours as needed for Pain. [facility] Naloxone (NARCAN) 4 MG/0.1ML nasal Liquid 2022-07 00:00: 00 Yes 4mg 0.1 mL (4 mg total) as needed. Cynthia gonzalez senna (SENOKOT) 8.6 mg tablet 2022-07 00:00: 00 06-18 23:59 :00 No 17.2mg Q.5D Take 2 tablets (17.2 mg total) by mouth 2 (two) times daily for 14 days. [facility] cyclobenzap rine (FLEXERIL) 10 MG tablet 2022-07 00:00: 00 06-16 00:00 :00 No 10mg Q.[id number] 3D Take 1 tablet (10 mg total) by mouth 3 (three) times daily for 10 days. [facility] methocarbam oL (ROBAXIN) 500 MG tablet 2022-07 00:00: 00 06-16 00:00 :00 No 500mg Q.25D Take 1 tablet (500 mg total) by mouth 4 (four) times daily for 10 days. [facility] lactulose (CHRONULAC) 20 gram/30 mL solution 2022-07 00:00: 00 06-11 23:59 :00 No 20g Q.[id number] 3D Take 30 mLs (20 g total) by mouth 3 (three) times daily for 7 days. [facility] ondansetron (ZOFRAN-ODT ) 4 MG disintegrat ing tablet 2022-07 00:00: 00 06-11 23:59 :00 No 4mg Take 1 tablet (4 mg total) by mouth every 6 (six) hours as needed for up to 7 days. [facility] metoprolol succinate (TOPROL-XL) 25 MG 24 hr tablet 2022-07 15:23: 22 Yes 25mg QD Take 1 tablet (25 mg total) by mouth daily. [facility] varenicline (CHANTIX) 1 mg tablet 2022-07 15:23: 22 Yes 1mg Q.5D Take 1 tablet (1 mg total) by mouth 2 (two) times daily Give with meals and with a full glass of water.. [facility] albuterol HFA (VENTOLIN HFA) 90 mcg/actuati on inhaler 2022-07 15:23: 22 Yes 1{puff} Inhale 1 puff by mouth via inhaler every 6 (six) hours as needed for Wheezing. [facility] fluticasone -umeclidin- vilanter (Trelegy Ellipta) 200-62.5-25 mcg DsDv 2022-07 15:23: 22 Yes QD Inhale by mouth via inhaler daily. [facility] atorvastati n (LIPITOR) 20 MG tablet 2022-07 15:23: 22 Yes 20mg QD Take 1 tablet (20 mg total) by mouth daily. [facility] acetaminoph en-codeine (TYLENOL #3) 300-30 mg per tablet 2022-07 15:23: 22 Yes 1{tbl} Take 1 tablet by mouth every 4 (four) hours as needed for Pain. [facility] acetaminoph en-codeine (TYLENOL #3) 300-30 mg per tablet 2022-07 09:42: 02 Yes 1{tbl} Take 1 tablet by mouth every 4 (four) hours as needed for Pain. Max Daily Amount: 6 tablets [facility] varenicline (CHANTIX) 1 mg tablet 2022-07 09:40: 04 Yes 1mg Q.5D Take 1 tablet (1 mg total) by mouth 2 (two) times daily Give with meals and with a full glass of water.. [facility] albuterol HFA (VENTOLIN HFA) 90 mcg/actuati on inhaler 2022-07 09:40: 04 Yes 1{puff} Inhale 1 puff by mouth via inhaler every 6 (six) hours as needed for Wheezing. [facility] fluticasone -umeclidin- vilanter (Trelegy Ellipta) 200-62.5-25 mcg DsDv 2022-07 09:40: 04 Yes QD Inhale by mouth via inhaler daily. [facility] atorvastati n (LIPITOR) 20 MG tablet 2022-07 09:40: 04 Yes 20mg QD Take 1 tablet (20 mg total) by mouth daily. [facility] metoprolol succinate (TOPROL-XL) 25 MG 24 hr tablet 2022-07 09:13: 28 Yes 25mg QD Take 1 tablet (25 mg total) by mouth daily. [facility] Atorvastati n Calcium 20 MG oral Tablet 2022-07 0 00:00: 00 Yes 20mg Take 1 tablet (20 mg total) by mouth daily. Cynthia gonzalez metoprolol succinate XL 25 mg 24 hr tablet 2022-07 0- 00:00: 00 11-27 00:00 :00 No 25mg Take 1 tablet by mouth every morning. [facility] Nitroglycer in 0.4 MG sublingual SL Tab [...] tablet (20 mg total) by mouth daily. [facility] aspirin 81 MG EC tablet 04-03 00:00: 00 07-02 23:59 :00 No 81mg QD Take 1 tablet (81 mg total) by mouth daily for 90 days. [facility] divalproex (DEPAKOTE) 500 MG EC tablet 04-03 00:00: 00 07-02 23:59 :00 No 500mg Q.5D Take 1 tablet (500 mg total) by mouth 2 (two) times daily for 90 days. [facility] lisinopriL (PRINIVIL,Z ESTRIL) 5 MG tablet 04-03 00:00: 00 05-28 00:00 :00 No 5mg QD Take 1 tablet (5 mg total) by mouth daily. [facility] clonazePAM (KlonoPIN) 0.5 MG tablet 04-03 00:00: 00 05-03 23:59 :00 No .25mg Take 0.5 tablets (0.25 mg total) by mouth 2 (two) times daily as needed for Anxiety for up to 30 days. Max Daily Amount: 0.5 mg [facility] HYDROcodone -acetaminop hen (NORCO 10-325) 10-325 mg per tablet 04-03 00:00: 00 04-13 23:59 :00 No 1{tbl} Take 1 tablet by mouth every 6 (six) hours as needed for up to 10 days. Max Daily Amount: 4 tablets [facility] methocarbam oL (ROBAXIN) 500 MG tablet 04-03 00:00: 00 04-13 23:59 :00 No 500mg Q.25D Take 1 tablet (500 mg total) by mouth 4 (four) times daily for 10 days. [facility] gabapentin (NEURONTIN) 300 MG capsule 04-02 00:00: 00 04-03 00:00 :00 No 300mg [id number] 3D Take 1 capsule (300 mg total) by mouth 3 (three) times daily for 90 days. [facility] divalproex (DEPAKOTE) 500 MG EC tablet 04-02 00:00: 00 04-03 00:00 :00 No 500mg Q.5D Take 1 tablet (500 mg total) by mouth 2 (two) times daily for 90 days. [facility] clonazePAM (KlonoPIN) 0.5 MG tablet 04-02 00:00: 00 04-03 00:00 :00 No .25mg Take 0.5 tablets (0.25 mg total) by mouth 2 (two) times daily as needed for Anxiety for up to 30 days. Max Daily Amount: 0.5 mg [facility] HYDROcodone -acetaminop hen (NORCO 10-325) 10-325 mg per tablet 04-02 00:00: 00 04-03 00:00 :00 No 1{tbl} Take 1 tablet by mouth every 6 (six) hours as needed for up to 10 days. Max Daily Amount: 4 tablets [facility] methocarbam oL (ROBAXIN) 500 MG tablet 04-02 00:00: 00 04-03 00:00 :00 No 500mg Q.25D Take 1 tablet (500 mg total) by mouth 4 (four) times daily for 10 days. [facility] Metronidazo le 500 MG oral [...] the evening. [facility] Divalproex Sodium 500 MG oral Tablet Delayed [...] 1 dose, On Arpita 12/11/22 at 1315, [facility] iopamidol (ISOVUE 370-500 mL) injection 80 mL 12-11 16:30: 00 12-11 16:27 :00 No [id number] 80mL 80 mL, Intravenou s, ONCE, 1 dose, On Arpita 12/11/22 at 1130, Routine [facility] nitroglycer in (NITROL) 2 % ointment 0.5 Inch 12-11 15:30: 00 12-11 14:31 :00 No .5[in_u s] 0.5 Inch, Transderma l (Apply To Skin), ONCE, 1 dose, [facility]/11/22 at 1030[facility] 324 mg 12-11 15:30: 00 12-11 14:30 :00 No 324mg 324 mg, Oral, ONCE, 1 dose, On Arpita 12/11/22 at 1030, Routine [facility] ondansetron (ZOFRAN (PF)) injection 4 mg 12-11 15:30: 00 12-11 14:29 :00 No 4mg 4 mg, Slow IV Push, ONCE, 1 dose, On Arpita 12/11/22 at 1030, [facility] LORazepam (ATIVAN) injection 1 mg 12-11 15:00: 00 12-11 14:57 :00 No 1mg 1 mg, Slow IV Push, ONCE, 1 dose, On Arpita 12/11/22 at 1000, STAT [facility] Lacosamide (VIMPAT) 100 mg tablet 12-11 00:00: 00 Yes [id number] 100mg Take 1 tablet by mouth in the morning and 1 tablet in the evening. [facility] acetaminoph en-codeine (TYLENOL #3) 300-30 mg tablet 1 tablet 11-18 05:30: 00 11-18 05:30 :00 No 1{tbl} 1 tablet, Oral, ONCE, 1 dose, On Thu11/18/22 at 0030, [facility] methocarbam oL (ROBAXIN) tablet 1,000 mg 11-18 05:30: 00 11-18 05:30 :00 No 1000mg 1,000 mg, Oral, ONCE, 1 dose, On Thu11/18/22 at 0030, [facility] ondansetron (ZOFRAN (PF)) injection 4 mg 11-18 04:45: 00 11-18 03:38 :00 No 4mg 4 mg, Slow IV Push, ONCE, 1 dose, On Thu11/17/22 at 2345, [facility] morpHINE (4 mg/mL) injection 4 mg 11-18 03:45: 00 11-18 03:38 :00 No 4mg 4 mg, Slow IV Push, ONCE, 1 dose, On Thu11/17/22 at 2245, Routine [facility] methocarbam oL (ROBAXIN) injection 1,000 mg 11-18 00:30: 00 11-17 23:47 :00 No 1000mg 1,000 mg, Intravenou s, ONCE, 1 dose, On Thu11/17/22 at 1930, [facility] methocarbam oL 500 mg tablet 11-18 00:00: 00 12-02 00:00 :00 No [id number] 1000mg Take 2 tablets by mouth 4 (four) times daily as needed for Pain (scale 7-10). [facility] acetaminoph en-codeine 300-60 mg tablet 11-18 00:00: 00 11-26 04:59 :00 No [id number] 1{tbl} Take 1 tablet by mouth every 6 (six) hours as needed for Pain for up to 7 days. Indication s: acute pain [facility] ketorolac (TORADOL) injection 15 mg 11-18 00:00: 00 11-17 23:08 :00 No 15mg 15 mg, Slow IV Push, ONCE, 1 dose, On Thu11/17/22 at 1900, Routine [facility] morpHINE (4 mg/mL) injection 4 mg 11-17 23:45: 00 11-17 23:49 :00 No 4mg 4 mg, Slow IV Push, ONCE, 1 dose, On Thu11/17/22 at 1845, Routine [facility] ondansetron (ZOFRAN (PF)) injection 4 mg 11-17 23:15: 00 11-17 23:06 :00 No 4mg 4 mg, Slow IV Push, ONCE, 1 dose, On Thu11/17/22 at 1815, MICHAEL [facility] lisinopriL (PRINIVIL,Z ESTRIL) tablet 10 mg 08-02 15:00: 00 Yes 10mg 10 mg, Oral, DAILY, First dose on Thu08/02/22 at 0900, Until Discontinu ed, Routine [facility] predniSONE (DELTASONE) tablet 40 mg 08-02 15:00: 00 08-07 14:59 :00 No 40mg 40 mg, Oral, DAILY, 5 doses, First dose on Thu08/02/22 at 0900, Last dose on Thu08/06/22 at 0900, Routine [facility] morpHINE (2 mg/mL) injection 2 mg 08-02 03:29: 15 Yes 2mg 2 mg, Slow IV Push, Q4HPRN, Starting on Thu08/01/22 at 2129, Until Discontinu ed, Routine, Pain (scale 7-10) [facility] levETIRAcet am (KEPPRA) in NACL (ISO-OS) 1,000 mg/100 mL RTU 08-02 00:00: 00 Yes 1000mg 1,000 mg, IV Piggyback, Q12H, First dose on Thu08/01/22 at 1800, Until Discontinu ed, Administer over 15 Minutes, 100 mL [facility] MULTIVITAMI N [...] Vomiting (N/V). [facility] omega-3 fatty acids-vitam in E (FISH OIL) 1,000 mg capsule 08-01 23:49: 34 Yes 1g Take 1 g by mouth daily. [facility] pantoprazol e [...] Thu08/01/22 at 1200, Until Discontinu ed, Routine [facility] ipratropium -albuteroL (DUONEB) 0.5 mg-3 mg(2.5 mg base)/3 mL nebulizer solution 3 mL 08-01 17:07: 07 Yes 3mL 3 mL, Inhalation , QIDPRN, Starting on Thu08/01/22 at 1107, Until Discontinu ed, MICHAEL, Wheezing, Shortness of Breath [facility] sulfur hexafluorid e microsphr (LUMASON) injection 5 mL 08-01 17:00: 00 08-01 17:00 :00 No [id number] 5mL 5 mL, Intravenou s, ONCE, 1 dose, On Thu08/01/22 at 1100, Routine
chemistry faculty member approving Restricted medication : KYLEE MONTEZ [facility] pantoprazol e (PROTONIX) EC tablet 40 mg 08-01 15:00: 00 Yes 40mg 40 mg, Oral, DAILY, First dose on Thu08/01/22 at 0900, Until Discontinu ed, Routine [facility] aspirin chewable tablet 81 mg 08-01 15:00: 00 Yes 81mg 81 mg, Oral, DAILY, First dose on Thu08/01/22 at 0900, Until Discontinu ed, Routine [facility] amLODIPine (NORVASC) tablet 10 mg 08-01 15:00: 00 Yes 10mg 10 mg, Oral, DAILY, First dose on Thu08/01/22 at 0900, Until Discontinu ed, Routine [facility] levETIRAcet am (KEPPRA) tablet 500 mg 08-01 14:00: 00 08-01 23:56 :35 No 500mg 500 mg, Oral, BID, First dose on Thu08/01/22 at 0800, Until Discontinu ed, Routine [facility] carvediloL (COREG) tablet 6.25 mg 08-01 14:00: 00 08-01 17:29 :13 No 6.25mg 6.25 mg, Oral, BID MEALS, First dose on Thu08/01/22 at 0800, Until Discontinu ed, Routine [facility] levETIRAcet am (KEPPRA) in NACL (ISO-OS) 1,000 mg/100 mL RTU 08-01 06:45: 00 08-01 06:32 :00 No 1000mg 1,000 mg, IV Piggyback, ONCE, 1 dose, On Thu08/01/22 at 0045, Administer over 15 Minutes, 100 mL [facility] LORazepam (ATIVAN) injection 1 mg 08-01 05:52: 54 Yes 1mg 1 mg, Slow IV Push, Q4HPRN, Starting on Thu07/31/22 at 2352, Until Discontinu ed, Routine, Seizures, Agitation, Anxiety, ETOH / Cocaine Withdrawl [facility] foLIC acid (FOLATE) tablet 1 mg 08-01 05:45: 00 Yes 1mg 1 mg, Oral, DAILY, First dose on Thu07/31/22 at 2345, Until Discontinu ed, Routine [facility] thiamine (VITAMIN B1) tablet 100 mg 08-01 05:45: 00 Yes 100mg 100 mg, Oral, DAILY, First dose on Thu07/31/22 at 2345, Until Discontinu ed, Routine [facility] LORazepam (ATIVAN) injection 0.5 mg 08-01 05:30: 00 08-01 05:29 :00 No .5mg 0.5 mg, Slow IV Push, ONCE, 1 dose, On Thu07/31/22 at 2330, MICHAEL [facility] atorvastati n (LIPITOR) tablet 40 mg 08-01 03:00: 00 Yes 40mg 40 mg, Oral, QHS, First dose on Thu07/31/22 at 2100, Until Discontinu ed, Routine [facility] diphenhydrA MINE (BENADRYL) tablet 25 mg 08-01 00:32: 02 Yes 25mg 25 mg, Oral, Q6HPRN, Starting on Thu07/31/22 at 1832, Until Discontinu ed, Routine, Itching [facility] enoxaparin (LOVENOX) injection 40 mg 07-31 23:00: 00 Yes 40mg 40 mg, Subcutaneo us, DAILY, First dose on Thu07/31/22 at 1700, Until Discontinu ed, Routine [facility] morpHINE (2 mg/mL) injection 2 mg 07-31 23:00: 00 07-31 22:29 :00 No 2mg 2 mg, Slow IV Push, ONCE, 1 dose, On Arpita 07/31/22 at 1700, Routine [facility] HYDROcodone -acetaminop hen (NORCO) 10-325 mg tablet 1 tablet 07-31 22:01: 36 Yes 1{tbl} 1 tablet, Oral, Q6HPRN, Starting on Arpita 07/31/22 at 1601, Until Discontinu ed, Routine, Pain (scale 7-10) [facility] HYDROcodone -acetaminop hen (NORCO 5) 5-325 mg tablet 1 tablet 07-31 22:01: 34 08-02 22:00 :34 No 1{tbl} 1 tablet, Oral, Q6HPRN, Starting on Arpita 07/31/22 at 1601, Until 08/02/22 at 1600, Routine, Pain (scale 4-6) [facility] acetaminoph en (TYLENOL) tablet 650 mg 07-31 22:01: 33 Yes 650mg 650 mg, Oral, Q6HPRN, Starting on Thu07/31/22 at 1601, Until Discontinu ed, Routine, Pain (scale 1-3) [facility] ketorolac (TORADOL) injection 15 mg 07-31 21:45: 00 07-31 20:50 :00 No 15mg 15 mg, Slow IV Push, ONCE, 1 dose, On Thu07/31/22 at 1545, Routine [facility] ondansetron (ZOFRAN (PF)) injection 4 mg 07-31 21:00: 00 07-31 20:47 :00 No 4mg 4 mg, Slow IV Push, ONCE, 1 dose, On Thu07/31/22 at 1500, MICHAEL [facility] furosemide (LASIX) injection 40 mg 07-31 20:15: 00 Yes 40mg 40 mg, Slow IV Push, Q12H, First dose on Thu07/31/22 at 1415, Until Discontinu ed, Routine [facility] methylpredn isolone sod succ (SOLU-MEDRO [...] 2021-07 00:00: 00 05-12 04:59 :00 No [id number] 4mg Take 1 tablet through enteral tube in the morning for 1 dose. [facility] Methylpredn isolone 4 mg tablet 2021-07 00:00: 00 05-11 04:59 :00 No [id number] 4mg Take 1 tablet through enteral tube [...] daily. [facility] DULoxetine 30 mg capsule 2021-07 14:00: 00 Yes 30mg Take 1 capsule by mouth in the morning. [facility] divalproex (DEPAKOTE) [...] 5 mg tablet 2021-07 00:00: 00 Yes [id number] 5mg Take 1 tablet by mouth in the morning and 1 tablet at noon and 1 tablet in the evening. [facility] DULoxetine (CYMBALTA) 30 mg capsule 2021-07 00:00: 00 06-08 05:59 :00 No [id number] 60mg Take 2 capsules by mouth in the morning for 30 days. [facility] divalproex (DEPAKOTE) 250 mg EC tablet 2021-07 00:00: 00 06-08 05:59 :00 No [id number] 750mg Take 3 tablets by mouth every 8 (eight) hours for 30 days. [facility] LORazepam 1 mg tablet 2021-07 00:00: 00 05-19 04:59 :00 No [id number] 1mg Take 1 tablet by mouth every 6 (six) hours as needed for Anxiety or Agitation for up to 10 days. [facility] acetaminoph en-codeine 300-30 mg tablet 2021-07 00:00: 00 05-16 04:59 :00 No [id number] 1{tbl} Take 1 tablet by mouth every 4 (four) hours as needed for Pain (scale 7-10) for up to 7 days. Indication s: acute pain [facility] Methylpredn isolone 4 mg tablet 2021-07 00:00: 00 05-10 04:59 :00 No [id number] 4mg Take 1 tablet by mouth every 8 (eight) hours for 3 doses. [facility] divalproex (DEPAKOTE) EC tablet 750 mg 2021-07 01:00: 00 05-08 09:40 :23 No 750mg 750 mg, Oral, BID, First dose on Thu05/06/22 at 2000, Until Discontinu ed, Routine [facility] levETIRAcet am (KEPPRA) tablet 1,500 mg 2021-07 13:00: 00 05-06 18:38 :22 No 1500mg 1,500 mg, Oral, BID, First dose (after last modificati on) on Thu05/06/22 at 0800, Until Discontinu ed, Routine [facility] levETIRAcet am (KEPPRA) in NACL (ISO-OS) 1,000 mg/100 mL RTU 2021-07 05:00: 00 05-06 05:46 :00 No 1000mg 1,000 mg, IV Piggyback, ONCE, 1 dose, On Thu05/06/22 at 0000, Administer over 15 Minutes, 100 mL [facility] methocarbam oL (ROBAXIN) tablet 500 mg 2021-07 02:15: 00 05-06 23:21 :42 No 500mg 500 mg, Oral, QID, First dose on Thu05/05/22 at 2115, Until Discontinu ed, Routine [facility] LORazepam (ATIVAN) tablet 2 mg 2021-07 01:30: 00 05-06 01:03 :00 No 2mg 2 mg, Oral, ONCE, 1 dose, On Thu05/05/22 at 2030, Routine [facility] levETIRAcet am (KEPPRA) tablet 1,000 mg 2021-07 01:00: 00 05-06 04:48 :06 No 1000mg 1,000 mg, Oral, BID, First dose on Thu05/05/22 at 2000, Until Discontinu ed, Routine [facility] enoxaparin (LOVENOX) injection 40 mg 2021-07 00:15: 00 Yes 40mg 40 mg, Subcutaneo us, Q24H, First dose on Thu05/05/22 at 1915, Until Discontinu ed, Routine [facility] levETIRAcet am (KEPPRA) in NACL (ISO-OS) 1,000 mg/100 mL RTU 2021-07 19:45: 00 05-05 20:05 :00 No 1000mg 1,000 mg, IV Piggyback, ONCE, 1 dose, On Thu05/05/22 at 1445, Administer over 15 Minutes, 100 mL [facility] clonazePAM (KLONOPIN) tablet 0.5 mg 2021-07 19:30: 00 Yes .5mg 0.5 mg, Oral, BID, First dose on Thu05/05/22 at 1430, Until Discontinu ed, Routine [facility] ibuprofen (IBU) tablet 600 mg 2021-07 19:30: 00 Yes 600mg 600 mg, Oral, TID MEALS, First dose on Thu05/05/22 at 1430, Until Discontinu ed, Routine [facility] gabapentin (NEURONTIN) capsule 300 mg 2021-07 19:30: 00 Yes 300mg 300 mg, Oral, TID, First dose on Thu05/05/22 at 1430, Until Discontinu ed, Routine [facility] cyclobenzap rine (FLEXERIL) tablet 5 mg 2021-07 19:30: 00 Yes 5mg 5 mg, Oral, TID, First dose on Thu05/05/22 at 1430, Until Discontinu ed, Routine [facility] acetaminoph en (TYLENOL) tablet 1,000 mg 2021-07 19:30: 00 Yes 1000mg 1,000 mg, Oral, Q8H, First dose on Thu05/05/22 at 1430, Until Discontinu ed, Routine [facility] pantoprazol e (PROTONIX) EC tablet 40 mg 2021-07 14:00: 00 Yes 40mg 40 mg, Oral, DAILY, First dose on Thu05/05/22 at 0900, Until Discontinu ed, Routine [facility] docusate (COLACE) capsule 100 mg 2021-07 14:00: 00 Yes 100mg 100 mg, Oral, DAILY, First dose on Thu05/05/22 at 0900, Until Discontinu ed, Routine [facility] HYDROcodone -acetaminop hen (NORCO) 10-325 mg tablet 1 tablet 2021-07 10:32: 02 05-05 19:18 :52 No 1{tbl} 1 tablet, Oral, Q6HPRN, Starting on Thu05/05/22 at 0532, Until Thu05/05/22 at 1418, Routine, Pain (scale 7-10) [facility] ondansetron (ZOFRAN (PF)) injection 4 mg 2021-07 06:49: 57 Yes 4mg 4 mg, Slow IV Push, Q6HPRN, Starting on Thu05/05/22 at 0149, Until Discontinu ed, Routine, Nausea and Vomiting (N/V) [facility] HYDROcodone -acetaminop hen (NORCO 5) 5-325 mg tablet 1 tablet 2021-07 06:49: 41 05-05 10:32 :14 No 1{tbl} 1 tablet, Oral, Q6HPRN, Starting on Thu05/05/22 at 0149, Until Thu05/05/22 at 0532, Routine, Pain (scale 7-10) [facility] acetaminoph en (TYLENOL) tablet 325 mg 2021-07 06:49: 39 05-05 19:18 :52 No 325mg 325 mg, Oral, Q4HPRN, Starting on Thu05/05/22 at 0149, Until Thu05/05/22 at 1418, Routine, Pain (scale 4-6) [facility] ondansetron (ZOFRAN) tablet 4 mg 2021-07 04:00: [...] mg chewable tablet 04-16 00:00: 00 Yes [id number] 81mg Take 1 tablet by mouth in [...] 1,000 mg tablet 04-15 00:00: 00 Yes [id number] 1000mg Take 1 tablet by mouth in the morning and 1 tablet in the evening. [facility] atorvastati n 40 mg tablet 04-15 00:00: 00 01-09 00:00 :00 No [id number] 40mg Take 1 tablet by mouth at bedtime. [facility] lidocaine 5 % (700 mg/patch) patch 04-15 00:00: 00 04-23 04:59 :00 No [id number] 1{patch } Apply 1 Patch to area(s) in the morning for 7 days. [facility] HYDROcodone -acetaminop hen 5-325 mg tablet 04-15 00:00: 00 04-21 04:59 :00 No [id number] 1{tbl} Take 1 tablet by mouth every 6 (six) hours as needed for Pain (scale 7-10) for up to 5 days. Indication s: acute pain [facility] lidocaine (LIDODERM) 5 % (700 mg/patch) patch 1 Patch 04-14 21:45: 29 Yes 1{patch } 1 Patch, Topical, Administer over 12 Hours, [id number], Starting on Thu04/14/22 at 1645, Until Discontinu ed, Routine, Localized pain [facility] aspirin chewable tablet 81 mg 04-14 21:30: 00 Yes 81mg 81 mg, Oral, DAILY, First dose on Thu04/14/22 at 1630, Until Discontinu ed, Routine [facility] acetaminoph en (TYLENOL) tablet 650 mg 04-14 21:29: 25 Yes 650mg 650 mg, Oral, Q6HPRN, Starting on Thu04/14/22 at 1629, Until Discontinu ed, Routine, Pain (scale 1-3), Temp > 38.5 C, Temp > 37.5 C [facility] HYDROcodone -acetaminop hen (NORCO) 10-325 mg tablet 1 tablet 04-14 21:29: 02 04-15 05:39 :41 No 1{tbl} 1 tablet, Oral, Q6HPRN, Starting on Thu04/14/22 at 1629, Until Thu04/15/22 at 0039, Routine, Pain (scale 7-10), Pain (scale 4-6) [facility] sulfur hexafluorid e microsphr (LUMASON) injection 5 mL 04-14 16:45: 00 04-14 16:45 :00 No [id number] 5mL 5 mL, Intravenou s, ONCE, 1 dose, On Thu04/14/22 at 1145, Routine
chemistry faculty member approving Restricted medication : MADELINE PIERRE [facility] clopidogreL (PLAVIX) 75 mg tablet 75 mg 04-14 14:00: 00 Yes 75mg 75 mg, Oral, DAILY, First dose on Thu04/14/22 at 0900, Until Discontinu ed, Routine [facility] pantoprazol e (PROTONIX) EC tablet 40 mg 04-14 14:00: 00 Yes 40mg 40 mg, Oral, DAILY, First dose on Thu04/14/22 at 0900, Until Discontinu ed, Routine [facility] atorvastati n (LIPITOR) tablet 40 mg 04-14 02:00: 00 Yes 40mg 40 mg, Oral, QHS, First dose on Thu04/13/22 at 2100, Until Discontinu ed, [facility] L[facility]ATIVAN[facility] 1 mg 04-14 01:30: 00 04-14 01:45 :00 No 1mg 1 mg, Oral, ONCE, 1 dose, On Thu04/13/22 at 2030, Routine [facility] methocarbam oL (ROBAXIN) tablet 500 mg 04-14 01:00: 00 Yes 500mg 500 mg, Oral, QID, First dose on Thu04/13/22 at 2000, Until Discontinu ed, [facility] (por[facility] 5,000 Units 04-14 01:00: 00 Yes 5000U 5,000 Units, Subcutaneo us, Q12H, First dose on Thu04/13/22 at 2000, Until Discontinu ed, Routine [facility] acetaminoph en (TYLENOL) tablet 650 mg 04-14 00:23: 25 04-14 21:29 :42 No 650mg 650 mg, Oral, Q6HPRN, Starting on Thu04/13/22 at 1923, Until Thu04/14/22 at 1629, Routine, Pain (scale 1-3), Pain (scale 4-6), Temp > 38.5 C, Temp > 37.5 C [facility] lidocaine (LIDODERM) 5 % (700 mg/patch) patch 1 Patch 04-14 00:22: 00 04-14 13:51 :00 No 1{patch } 1 Patch, Topical, Administer over 12 Hours, ONCE, 1 dose, On Thu04/13/22 at 1930, [facility] FENT[facility] (SUBLIMAZE (PF)) injection 50 mcg 04-13 20:30: 00 04-13 19:22 :00 No 50ug 50 mcg, Slow IV Push, ONCE, 1 dose, On 04/13/22 at 1530, Routine [facility] aspirin chewable tablet 650 mg 04-13 20:15: 00 04-13 20:15 :00 No 650mg 650 mg, Oral, ONCE, 1 dose, On 04/13/22 at 1515, Routine [facility] clopidogreL (PLAVIX) 300 mg tablet 300 mg 04-13 20:00: 00 04-13 19:15 :00 No 300mg 300 mg, Oral, ONCE, 1 dose, On 04/13/22 at 1500, Routine [facility] ondansetron (ZOFRAN (PF)) injection 4 mg 04-13 19:30: 00 04-13 19:22 :00 No 4mg 4 mg, Slow IV Push, ONCE, 1 dose, On 04/13/22 at 1430, MICHAEL [facility] iopamidol (ISOVUE 370-500 mL) injection 100 mL 04-13 18:31: 00 04-13 18:32 :00 No [id number] 100mL 100 mL, Intravenou s, ONCE, 1 [...] ONCE, 1 dose, On 11/23/21 at 1730, [facility] acetaminoph en (TYLENOL) tablet 1,000 mg 11-23 22:15: 00 11-23 21:09 :00 No 1000mg 1,000 mg, Oral, ONCE, 1 dose, On 11/23/21 at 1715, [facility] ondansetron (ZOFRAN (PF)) injection 4 mg 11-23 21:45: 00 11-23 20:30 :00 No 4mg 4 mg, Slow IV Push, ONCE, 1 dose, On 11/23/21 at 1645, [facility] NaCl 0.9% (NS) bolus infusion 1,000 mL 11-23 21:30: 00 11-23 21:56 :00 No 1000mL at 999 mL/hr, 1,000 mL, IV Infusion, ONCE, 1 dose, On 11/23/21 at 1630, [facility] LORazepam (ATIVAN) injection 4 mg 11-23 21:30: 00 11-23 20:23 :00 No 4mg 4 mg, Slow IV Push, ONCE, 1 dose, On 11/23/21 at 1630, [facility] levETIRAcet am (KEPPRA) in NACL (ISO-OS) 1,500 mg/100 mL RTU 11-23 21:30: 00 11-23 20:47 :00 No 1500mg 1,500 mg, IV Piggyback, ONCE, 1 dose, On 11/23/21 at 1630, Administer over 15 Minutes, 100 mL [facility] Dose Unknown 4-08 00:00: 00 [...] 2021-0 3-14 00:00: 00 No Dose Unknown 0 3-14 00:00: 00 No hydroxyzine HCl 50 mg tablet 2021-0 3-09 00:00: 00 No 1mg Prozac 20 mg capsule 2021-0 3-09 00:00: 00 No 1mg hydroxyzine HCl [...] Dose Unknown 2021-0 3-06 00:00: 00 No Wellbutrin XL 150 [...] Push, ONCE, 1 dose, 03/16/21 at 2100, [facility] ipratropium -albuteroL (DUONEB) 0.5 mg-3 mg(2.5 mg base)/3 mL nebulizer solution 3 mL 03-17 01:57: 00 03-17 02:15 :00 No 3mL 3 mL, Inhalation , ONCE, 1 dose, 03/16/21 at 2100, [facility] NaCl 0.9% (NS) IV infusion 1,000 mL 03-17 01:57: 00 03-17 03:07 :00 No 1000mL at 999 mL/hr, Intravenou s, ONCE, 1 dose, 03/16/21 at 2100, [facility] methylpredn isolone sod succ (SOLU-MEDRO L) injection 125 mg 03-17 01:57: 00 03-17 02:11 :00 No 125mg 125 mg, Slow IV Push, ONCE, 1 dose, 03/16/21 at 2100, STAT [facility] levoFLOXaci n 500 mg tablet 03-17 00:00: 00 03-24 04:59 :00 No [id number] 500mg Take 1 tablet by mouth daily for 6 days. [facility] predniSONE 10 mg tablet 03-17 00:00: 00 03-22 04:59 :00 No [id number] 30mg Take 3 tablets by mouth daily for 4 days. [facility] albuterol (VENTOLIN) inhaler 4 Puff 03-15 01:45: 00 03-15 00:44 :00 No [id number] 4{puff} 4 Puff, Inhalation , ONCE, 1 dose, [facility] 03/14/21 at 2044, Routine [facility] dexamethaso ne (DECADRON) injection 10 mg 03-15 01:45: 00 03-15 00:45 :00 No [id number] 10mg 10 mg, Intramuscu lar, ONCE, 1 dose, [facility] 03/14/21 at 2044, Routine [facility] albuterol 2.5 mg /3 mL (0.083 %) nebulizer solution 03-15 00:00: 00 01-09 00:00 :00 No [id number] 2.5mg Inhale 3 mL every 4 (four) hours as needed for Wheezing or Shortness of Breath. [facility] levETIRAcet am (KEPPRA) in NACL (ISO-OS) 1,000 mg/100 mL RTU 02-19 20:15: 00 02-19 19:30 :00 No 1000mg 1,000 mg, IV Infusion, ONCE, 1 dose, [facility] 02/19/21 at 1515, Administer over 15 Minutes, [...] 02-19 16:35: 00 02-19 16:45 :00 No [id number] 100mL 100 mL, Intravenou s, ONCE, 1 dose, 02/19/21 at 1145, Routine [facility] levetiracet am (KEPPRA ORAL) 02-19 14:45: 33 Yes Take by mouth. [facility] dicyclomine 20 mg tablet 02-19 00:00: 00 01-09 00:00 :00 No [id number] 20mg Take 1 tablet by mouth 4 (four) times daily as needed for Abdominal pain. [facility] proMETHazin e 25 mg tablet 02-19 00:00: 00 11-27 00:00 :00 No [id number] 25mg Take 1 tablet by mouth every 6 (six) hours as needed for Nausea and Vomiting (N/V). [facility] ZONISAMIDE 100 [...] by mouth. [facility] lisinopril- hydrochloro [...] mouth daily. [facility] Immunizations Ordered Immunization Name Filled Immunization Name Date Status Comments Source SARS-COV-2 COVID-19 PFIZER BA-SUCROSE VACCINE (ROSE TOP) 2022-02-19 00:00:00 Completed [facility] SARS-COV-2 COVID-19 PFIZER BA-SUCROSE VACCINE (ROSE TOP) 2022-02-19 00:00:00 Completed [facility] SARS-COV-2 COVID-19 PFIZER BA-SUCROSE VACCINE (ROSE TOP) 2022-02-19 00:00:00 Completed [facility] SARS-COV-2 COVID-19 PFIZER BA-SUCROSE VACCINE (ROSE TOP) 2022-02-19 00:00:00 Completed [facility] SARS-COV-2 COVID-19 PFIZER BA-SUCROSE VACCINE (ROSE TOP) 2022-02-19 00:00:00 Completed [facility] SARS-COV-2 COVID-19 PFIZER BA-SUCROSE VACCINE (ROSE TOP) 2022-02-19 00:00:00 Completed [facility] SARS-COV-2 COVID-19 PFIZER BA-SUCROSE VACCINE (ROSE TOP) 2022-02-19 00:00:00 Completed [facility] SARS-COV-2 COVID-19 PFIZER BA-SUCROSE VACCINE (ROSE TOP) 2022-02-19 00:00:00 Completed [facility] SARS-COV-2 COVID-19 PFIZER BA-SUCROSE VACCINE (ROSE TOP) 2022-02-19 00:00:00 Completed [facility] SARS-COV-2 COVID-19 PFIZER VACCINE 2021-05-24 00:00:00 Completed [facility] SARS-COV-2 COVID-19 PFIZER VACCINE 2021-05-24 00:00:00 Completed [facility] SARS-COV-2 COVID-19 PFIZER VACCINE 2021-05-24 00:00:00 Completed [facility] SARS-COV-2 COVID-19 PFIZER VACCINE 2021-05-24 00:00:00 Completed [facility] SARS-COV-2 COVID-19 PFIZER VACCINE 2021-05-24 00:00:00 Completed [facility] SARS-COV-2 COVID-19 PFIZER VACCINE 2021-05-24 00:00:00 Completed [facility] SARS-COV-2 COVID-19 PFIZER VACCINE 2021-05-24 00:00:00 Completed [facility] SARS-COV-2 COVID-19 PFIZER VACCINE 2021-05-24 00:00:00 Completed [facility] SARS-COV-2 COVID-19 PFIZER VACCINE 2021-05-24 00:00:00 Completed [facility] SARS-COV-2 COVID-19 PFIZER VACCINE 2021-05-24 00:00:00 Completed [facility] SARS-COV-2 COVID-19 PFIZER VACCINE 2021-05-24 00:00:00 Completed [facility] SARS-COV-2 COVID-19 PFIZER VACCINE 2021-05-03 00:00:00 Completed [facility] SARS-COV-2 COVID-19 PFIZER VACCINE 2021-05-03 00:00:00 Completed [facility] SARS-COV-2 COVID-19 PFIZER VACCINE 2021-05-03 00:00:00 Completed [facility] SARS-COV-2 COVID-19 PFIZER VACCINE 2021-05-03 00:00:00 Completed [facility] SARS-COV-2 COVID-19 PFIZER VACCINE 2021-05-03 00:00:00 Completed [facility] SARS-COV-2 COVID-19 PFIZER VACCINE 2021-05-03 00:00:00 Completed [facility] SARS-COV-2 COVID-19 PFIZER VACCINE 2021-05-03 00:00:00 Completed [facility] SARS-COV-2 COVID-19 PFIZER VACCINE 2021-05-03 00:00:00 Completed [facility] SARS-COV-2 COVID-19 PFIZER VACCINE 2021-05-03 00:00:00 Completed [facility] SARS-COV-2 COVID-19 PFIZER VACCINE 2021-05-03 00:00:00 Completed [facility] SARS-COV-2 COVID-19 PFIZER VACCINE 2021-05-03 00:00:00 Completed [facility] SARS-COV-2 COVID-19 PFIZER VACCINE 2021-05-03 00:00:00 Completed [facility] SARS-COV-2 COVID-19 PFIZER VACCINE Unknown Completed [facility] SARS-COV-2 COVID-19 PFIZER BA-SUCROSE VACCINE (ROSE TOP) Unknown Completed [facility] SARS-COV-2 COVID-19 PFIZER BA-SUCROSE VACCINE (ROSE TOP) Unknown Completed [facility] SARS-COV-2 COVID-19 PFIZER VACCINE Unknown Completed [facility] SARS-COV-2 COVID-19 PFIZER VACCINE Unknown Completed [facility] SARS-COV-2 COVID-19 PFIZER BA-SUCROSE VACCINE (ROSE TOP) Unknown Completed [facility] SARS-COV-2 COVID-19 PFIZER VACCINE Unknown Completed [facility] SARS-COV-2 COVID-19 PFIZER BA-SUCROSE VACCINE (ROSE TOP) Unknown Completed [facility] SARS-COV-2 COVID-19 PFIZER VACCINE Unknown Completed [facility] SARS-COV-2 COVID-19 PFIZER BA-SUCROSE VACCINE (ROSE TOP) Unknown Completed [facility] SARS-COV-2 COVID-19 PFIZER VACCINE Unknown Completed [facility] SARS-COV-2 COVID-19 PFIZER BA-SUCROSE VACCINE (ROSE TOP) Unknown Completed [facility] SARS-COV-2 COVID-19 PFIZER VACCINE Unknown Completed [facility] SARS-COV-2 COVID-19 PFIZER BA-SUCROSE VACCINE (ROSE TOP) Unknown Completed [facility] SARS-COV-2 COVID-19 PFIZER VACCINE Unknown Completed [facility] SARS-COV-2 COVID-19 PFIZER BA-SUCROSE VACCINE (ROSE TOP) Unknown Completed [facility] SARS-COV-2 COVID-19 PFIZER VACCINE Unknown Completed [facility] SARS-COV-2 COVID-19 PFIZER BA-SUCROSE VACCINE (ROSE TOP) Unknown Completed [facility] SARS-COV-2 COVID-19 PFIZER VACCINE Unknown Completed [facility] SARS-COV-2 COVID-19 PFIZER BA-SUCROSE VACCINE (ROSE TOP) Unknown Completed [facility] SARS-COV-2 COVID-19 PFIZER VACCINE Unknown Completed [facility] SARS-COV-2 COVID-19 PFIZER BA-SUCROSE VACCINE (ROSE TOP) Unknown Completed [facility] SARS-COV-2 COVID-19 PFIZER VACCINE Unknown Completed [facility] SARS-COV-2 COVID-19 PFIZER BA-SUCROSE VACCINE (ROSE TOP) Unknown Completed [facility] SARS-COV-2 COVID-19 PFIZER VACCINE Unknown Completed [facility] SARS-COV-2 COVID-19 PFIZER BA-SUCROSE VACCINE (ROSE TOP) Unknown Completed [facility] SARS-COV-2 COVID-19 PFIZER VACCINE Unknown Completed [facility] SARS-COV-2 COVID-19 PFIZER BA-SUCROSE VACCINE (ROSE TOP) Unknown Completed [facility] Vital Signs Vital Name Observation Time Observation Value Comments S ource Systolic blood pressure 2024-04-03 05:10:00 111 mm[Hg] [facility] Diastolic blood pressure 2024-04-03 05:10:00 65 mm[Hg] [facility] Heart rate 2024-04-03 05:10:00 70 /min [facility] Respiratory rate 2024-04-03 05:10:00 23 /min [facility] Oxygen saturation in Arterial blood by Pulse oximetry 2024-04-03 05:10:00 97 /min [facility] Body temperature 2024-04-03 01:49:00 37.33 Radha [facility] Body height 2024-04-03 01:49:00 157.5 cm [facility] Body weight 2024-04-03 01:49:00 90.719 kg [facility] BMI 2024-04-03 01:49:00 36.58 kg/m2 [facility] Systolic blood pressure 2024-01-13 04:50:00 103 mm[Hg] [facility] Diastolic blood pressure 2024-01-13 04:50:00 72 mm[Hg] [facility] Heart rate 2024-01-13 04:50:00 85 /min [facility] Body temperature 2024-01-13 04:50:00 36.67 Radha [facility] Oxygen saturation in Arterial blood by Pulse oximetry 2024-01-13 04:50:00 99 /min [facility] Respiratory rate 2024-01-13 04:40:00 19 /min [facility] Body height 2024-01-13 03:06:00 160 cm [facility] Body weight 2024-01-13 03:06:00 81.194 kg [facility] BMI 2024-01-13 03:06:00 31.71 kg/m2 [facility] Systolic blood pressure 2024-01-10 20:00:00 95 mm[Hg] [facility] Diastolic blood pressure 2024-01-10 20:00:00 71 mm[Hg] [facility] Heart rate 2024-01-10 20:00:00 73 /min [facility] Body temperature 2024-01-10 20:00:00 36.83 Radha [facility] Respiratory rate 2024-01-10 20:00:00 23 /min [facility] Oxygen saturation in Arterial blood by Pulse oximetry 2024-01-10 20:00:00 94 /min [facility] Body weight 2024-01-10 09:00:00 81.466 kg [facility] BMI 2024-01-10 09:00:00 32.85 kg/m2 [facility] Body height 2024-01-09 21:10:00 157.5 cm [facility] Heart rate 2023-12-15 12:35:00 73 /min [facility] Respiratory rate 2023-12-15 12:35:00 18 /min [facility] Oxygen saturation in Arterial blood by Pulse oximetry 2023-12-15 12:35:00 95 /min [facility] Systolic blood pressure 2023-12-15 12:20:00 105 mm[Hg] [facility] Diastolic blood pressure 2023-12-15 12:20:00 64 mm[Hg] [facility] Body temperature 2023-12-15 12:20:00 36.11 Radha [facility] Body weight 2023-12-15 08:12:00 78.472 kg [facility] BMI 2023-12-15 08:12:00 30.65 kg/m2 [facility] Body height 2023-12-15 02:10:00 160 cm [facility] Systolic blood pressure 2023-12-03 23:00:00 106 mm[Hg] [facility] Diastolic blood pressure 2023-12-03 23:00:00 75 mm[Hg] [facility] Heart rate 2023-12-03 23:00:00 108 /min [facility] Body temperature 2023-12-03 23:00:00 36.61 Radha [facility] Respiratory rate 2023-12-03 23:00:00 17 /min [facility] Oxygen saturation in Arterial blood by Pulse oximetry 2023-12-03 23:00:00 96 /min [facility] Body height 2023-12-03 19:39:00 160 cm [facility] Body weight 2023-12-03 19:39:00 90.7 kg [facility] BMI 2023-12-03 19:39:00 35.43 kg/m2 [facility] Systolic blood pressure 2023-11-28 16:39:00 91 mm[Hg] [facility] Diastolic blood pressure 2023-11-28 16:39:00 65 mm[Hg] [facility] Heart rate 2023-11-28 16:39:00 105 /min [facility] Body temperature 2023-11-28 16:39:00 36.28 Radha [facility] Respiratory rate 2023-11-28 16:39:00 20 /min [facility] Oxygen saturation in Arterial blood by Pulse oximetry 2023-11-28 16:39:00 97 /min [facility] Body weight 2023-11-28 01:00:00 84 kg [facility] BMI 2023-11-28 01:00:00 32.81 kg/m2 [facility] Body height 2023-11-22 07:10:00 160 cm [facility] Systolic blood pressure 2023-11-23 19:43:25 123 mm[Hg] [facility] Diastolic blood pressure 2023-11-23 19:43:25 79 mm[Hg] [facility] Respiratory rate 2023-11-23 19:43:25 17 /min [facility] Oxygen saturation in Arterial blood by Pulse oximetry 2023-11-23 19:43:25 97 /min [facility] Heart rate 2023-11-23 19:20:46 122 /min [facility] Body temperature 2023-11-23 15:00:00 36.22 Radha [facility] Body height 2023-11-22 07:10:00 160 cm [facility] Body weight 2023-11-22 07:10:00 94.484 kg [facility] BMI 2023-11-22 07:10:00 35.16 kg/m2 [facility] Systolic blood pressure 2023-09-11 17:27:00 122 mm[Hg] [...] Systolic blood pressure 2023-08-12 21:00:00 130 mm[Hg] [facility] Diastolic blood pressure 2023-08-12 21:00:00 85 mm[Hg] [facility] Heart rate 2023-08-12 21:00:00 106 /min [facility] Respiratory rate 2023-08-12 21:00:00 14 /min [facility] Oxygen saturation in Arterial blood by Pulse oximetry 2023-08-12 21:00:00 95 /min [facility] Body temperature 2023-08-12 20:34:54 37.22 Radha [facility] Body height 2023-08-12 19:47:00 157.5 cm [facility] Body weight 2023-08-12 19:47:00 81.647 kg [facility] BMI 2023-08-12 19:47:00 32.92 kg/m2 [facility] WEIGHT 2023-06-16 05:26:00 86.047 kg HEIGHT [...] blood pressure 2022-12-11 20:00:00 142 mm[Hg] [facility] Diastolic blood pressure 2022-12-11 20:00:00 90 mm[Hg] [facility] Respiratory rate 2022-12-11 20:00:00 24 /min [facility] Heart rate 2022-12-11 18:00:00 101 /min [facility] Oxygen saturation in Arterial blood by Pulse oximetry 2022-12-11 18:00:00 93 /min [facility] BMI 2022-12-11 13:55:00 35.43 kg/m2 [facility] Body temperature 2022-12-11 13:55:00 37.22 Radha [facility] Body weight 2022-12-11 13:55:00 90.719 kg [facility] Systolic blood pressure 2022-11-18 05:34:00 152 mm[Hg] [facility] Diastolic blood pressure 2022-11-18 05:34:00 98 mm[Hg] [facility] Heart rate 2022-11-18 05:34:00 88 /min [facility] Respiratory rate 2022-11-18 05:34:00 18 /min [facility] Oxygen saturation in Arterial blood by Pulse oximetry 2022-11-18 05:34:00 97 /min [facility] Body temperature 2022-11-17 22:28:00 37.06 [facility] Body height 2022-11-17 22:28:00 160 cm [facility] Body weight 2022-11-17 22:28:00 99.791 kg [facility] BMI 2022-11-17 22:28:00 38.97 kg/m2 [facility] Heart rate 2022-08-02 02:02:00 108 /min [facility] Respiratory rate 2022-08-02 02:02:00 28 /min [facility] Oxygen saturation in Arterial blood by Pulse oximetry 2022-08-02 02:02:00 97 /min [facility] Body temperature 2022-08-02 01:00:00 36.44 Radha [facility] Systolic blood pressure 2022-08-01 23:29:00 145 mm[Hg] [facility] Diastolic blood pressure 2022-08-01 23:29:00 103 mm[Hg] [facility] Body weight 2022-08-01 09:16:00 97.977 kg [facility] BMI 2022-08-01 09:16:00 38.26 kg/m2 [facility] Body height 2022-07-31 21:54:00 160 cm [facility] Systolic blood pressure 2022-05-08 16:40:00 146 mm[Hg] [facility] Diastolic blood pressure 2022-05-08 16:40:00 96 mm[Hg] [facility] Heart rate 2022-05-08 16:40:00 112 /min [facility] Body temperature 2022-05-08 16:40:00 36.78 Radha [facility] Respiratory rate 2022-05-08 16:40:00 18 /min [facility] Oxygen saturation in Arterial blood by Pulse oximetry 2022-05-08 16:40:00 94 /min [facility] Body height 2022-05-05 23:44:00 160 cm [facility] Body weight 2022-05-05 23:37:00 81.647 kg [facility] BMI 2022-05-05 23:37:00 31.89 kg/m2 [facility] Systolic blood pressure 2022-04-15 18:52:00 104 mm[Hg] [facility] Diastolic blood pressure 2022-04-15 18:52:00 82 mm[Hg] [facility] Heart rate 2022-04-15 18:52:00 114 /min [facility] Oxygen saturation in Arterial blood by Pulse oximetry 2022-04-15 18:52:00 98 /min [facility] Body temperature 2022-04-15 16:14:00 36.28 Radha [facility] Respiratory rate 2022-04-15 16:14:00 17 /min [facility] Body height 2022-04-13 21:08:00 160 cm [facility] Body weight 2022-04-13 21:08:00 91.173 kg [facility] BMI 2022-04-13 21:08:00 35.61 kg/m2 [facility] Systolic blood pressure 2021-11-23 21:30:00 132 mm[Hg] [facility] Diastolic blood pressure 2021-11-23 21:30:00 76 mm[Hg] [facility] Heart rate 2021-11-23 21:30:00 95 /min [facility] Respiratory rate 2021-11-23 21:30:00 13 /min [facility] Oxygen saturation in Arterial blood by Pulse oximetry 2021-11-23 21:30:00 97 /min [facility] Body temperature 2021-11-23 20:15:00 37.56 Radha [facility] Systolic blood pressure 2021-03-17 03:00:00 117 mm[Hg] [facility] Diastolic blood pressure 2021-03-17 03:00:00 76 mm[Hg] [facility] Heart rate 2021-03-17 03:00:00 104 /min [facility] Respiratory rate 2021-03-17 03:00:00 28 /min [facility] Oxygen saturation in Arterial blood by Pulse oximetry 2021-03-17 03:00:00 96 /min [facility] Body temperature 2021-03-17 00:39:00 37.11 Radha [facility] Body height 2021-03-17 00:39:00 160 cm [facility] Body weight 2021-03-17 00:39:00 58.968 kg [facility] BMI 2021-03-17 00:39:00 23.03 kg/m2 [facility] Systolic blood pressure 2021-03-15 00:14:00 149 mm[Hg] [facility] Diastolic blood pressure 2021-03-15 00:14:00 78 mm[Hg] [facility] Heart rate 2021-03-15 00:14:00 100 /min [facility] Body temperature 2021-03-15 00:14:00 37.33 Radha [facility] Respiratory rate 2021-03-15 00:14:00 24 /min [facility] Body height 2021-03-15 00:14:00 160 cm [facility] Body weight 2021-03-15 00:14:00 58.968 kg [facility] BMI 2021-03-15 00:14:00 23.03 kg/m2 [facility] Oxygen saturation in Arterial blood by Pulse oximetry 2021-03-15 00:14:00 98 /min [facility] Systolic blood pressure 2021-02-19 18:00:00 131 mm[Hg] [facility] Diastolic blood pressure 2021-02-19 18:00:00 80 mm[Hg] [facility] Heart rate 2021-02-19 18:00:00 83 /min [facility] Respiratory rate 2021-02-19 18:00:00 18 /min [facility] Oxygen saturation in Arterial blood by Pulse oximetry 2021-02-19 18:00:00 100 /min [facility] Body temperature 2021-02-19 15:47:00 37 Radha [facility] Body height 2021-02-19 15:47:00 160 cm [facility] Body weight 2021-02-19 15:47:00 58.968 kg [facility] BMI 2021-02-19 15:47:00 23.03 kg/m2 [facility] Heart rate 2023-09-08 08:54:00 118 /min [facility] Respiratory rate 2023-09-08 08:54:00 21 /min [facility] Oxygen saturation in Arterial blood by Pulse oximetry 2023-09-08 08:54:00 100 /min [facility] Systolic blood pressure 2023-09-08 08:32:00 110 mm[Hg] [facility] Diastolic blood pressure 2023-09-08 08:32:00 77 mm[Hg] [facility] Body temperature 2023-09-08 08:32:00 36.06 Radha [facility] Body height 2023-09-04 00:58:00 157.5 cm [facility] Body weight 2023-09-04 00:58:00 80 kg [facility] BMI 2023-09-04 00:58:00 32.26 kg/m2 [facility] Heart rate 2023-06-16 17:00:00 108 /min [facility] Systolic blood pressure 2023-06-16 15:31:00 101 mm[Hg] [facility] Diastolic blood pressure 2023-06-16 15:31:00 81 mm[Hg] [facility] Body temperature 2023-06-16 15:31:00 36.61 Radha [facility] Respiratory rate 2023-06-16 15:31:00 18 /min [facility] Oxygen saturation in Arterial blood by Pulse oximetry 2023-06-16 15:31:00 94 /min [facility] Body weight 2023-06-16 05:26:00 86.047 kg [facility] BMI 2023-06-16 05:26:00 33.60 kg/m2 [facility] Body height 2023-06-13 04:00:00 160 cm [facility] Systolic blood pressure 2023-06-04 13:02:00 93 mm[Hg] [facility] Diastolic blood pressure 2023-06-04 13:02:00 57 mm[Hg] [facility] Heart rate 2023-06-04 13:02:00 101 /min [facility] Respiratory rate 2023-06-04 13:02:00 22 /min [facility] Oxygen saturation in Arterial blood by Pulse oximetry 2023-06-04 13:02:00 95 /min room air [facility] Body temperature 2023-06-04 11:46:00 35.28 Radha [facility] Systolic blood pressure 2023-05-28 16:00:00 154 mm[Hg] [facility] Diastolic blood pressure 2023-05-28 16:00:00 82 mm[Hg] [facility] Heart rate 2023-05-28 16:00:00 89 /min [facility] Body temperature 2023-05-28 16:00:00 36.67 Radha [facility] Respiratory rate 2023-05-28 16:00:00 16 /min [facility] Oxygen saturation in Arterial blood by Pulse oximetry 2023-05-28 16:00:00 97 /min [facility] Body height 2023-05-28 07:00:00 157.5 cm [facility] Body weight 2023-05-28 07:00:00 87.544 kg [facility] BMI 2023-05-28 07:00:00 35.30 kg/m2 [facility] Body height 2023-05-26 09:12:00 157.5 cm [facility] Body weight 2023-05-26 09:12:00 87.091 kg [facility] BMI 2023-05-26 09:12:00 35.12 kg/m2 [facility] Respiratory rate 2023-04-02 16:35:00 18 /min [facility] Oxygen saturation in Arterial blood by Pulse oximetry 2023-04-02 16:35:00 98 /min [facility] Systolic blood pressure 2023-04-02 12:00:00 147 mm[Hg] [facility] Diastolic blood pressure 2023-04-02 12:00:00 97 mm[Hg] [facility] Heart rate 2023-04-02 12:00:00 106 /min [facility] Body temperature 2023-04-02 12:00:00 36.28 Radha [facility] Body height 2023-03-30 02:14:00 157.5 cm [facility] Body weight 2023-03-30 02:14:00 92.08 kg [facility] BMI 2023-03-30 02:14:00 37.13 kg/m2 [facility] Respiratory rate 2022-08-03 14:40:00 18 /min [facility] Systolic blood pressure 2022-08-03 12:13:00 112 mm[Hg] [facility] Diastolic blood pressure 2022-08-03 12:13:00 77 mm[Hg] [facility] Heart rate 2022-08-03 12:13:00 115 /min [facility] Oxygen saturation in Arterial blood by Pulse oximetry 2022-08-03 12:13:00 93 /min [facility] Body temperature 2022-08-03 12:00:00 36.83 Radha [facility] Body height 2022-08-02 21:52:00 160.2 cm [facility] Body weight 2022-08-02 21:52:00 95 kg [facility] BMI 2022-08-02 21:52:00 37.02 kg/m2 [facility] BP Systolic 2022-07-24 13:31:00 136 [...] Performing Clinician Source LACTIC ACID WHOLE BLOOD 2024-04-03 01:59:00 Tammy Chrissy [facility] BASIC METABOLIC PANEL (NA, K , CL, CO2, GLUCOSE, BUN, CREATININE, CA) 2024-04-03 01:58:00 Tammy Chrissy [facility] CBC WITH DIFF 2024-04-03 01:58:00 Tammy [facility] N-TERMINAL PRO-BNP 2024-04-03 01:58:00 Tammy Chrissy [facility] EKG-12 LEAD 2024-01-13 04:42:14 Radha Wyatt [facility] TROPONIN I 2024-01-13 03:20:00 Radha Wyatt [facility] COMP. METABOLIC PANEL ([id number]) 2024-01-13 03:20:00 Radha Wyatt [facility] CBC WITH DIFF 2024-01-13 03:20:00 Radha Wyatt [facility] TRANSTHORACIC ECHO (TTE) LIMITED W/ DOPPLER, COLOR AND CONTRAST 2024-01-10 13:07:00 Darrick Altamirano [facility] MAGNESIUM 2024-01-10 09:16:00 Darrick Altamirano [facility] TROPONIN I 2024-01-10 09:16:00 Darrick Altamirano [facility] BASIC METABOLIC PANEL (NA, K , CL, CO2, GLUCOSE, BUN, CREATININE, CA) 2024-01-10 09:16:00 Darrick Altamirano [facility] LIPID PANEL ([id number])(TOTAL CHOLESTEROL, TRIGLYCERIDES, HDL) 2024-01-10 09:16:00 Darrick Altamirano [facility] CBC WITH DIFF 2024-01-10 09:16:00 Darrick Altamirano [facility] PROTHROMBIN TIME / INR 2024-01-10 09:16:00 Darrick Altamirano [facility] ACTIVATED PARTIAL THRMPLAS DAVID 2024-01-10 09:16:00 Darrick Altamirano [facility] N-TERMINAL PRO-BNP 2024-01-10 09:16:00 Darrick Altamirano [facility] PHOSPHORUS 2024-01-10 04:58:00 Darrick Altamirano [facility] BLOOD CULTURE SCREEN 2024-01-10 02:39:00 Alfonso Alvarado [facility] BLOOD CULTURE SCREEN 2024-01-10 02:20:00 Alfonso Alvarado [facility] LACTIC ACID WHOLE BLOOD 2024-01-10 01:52:00 Alfonso Alvarado [facility] CT CHEST PULMONARY ANGIOGRAM 2024-01-09 23:59:01 [facility] XR CHEST 1 VW 2024-01-09 21:49:00 Abundio [facility] TROPONIN I 2024-01-09 21:39:00 Abundio [facility] COMP. METABOLIC PANEL ([id number]) 2024-01-09 21:39:00 Olena Del Castillo [facility] CBC WITH DIFF 2024-01-09 21:39:00 Abundio [facility] D-DIMER 2024-01-09 21:39:00 Abundio [facility] N-TERMINAL PRO-BNP 2024-01-09 21:39:00 Abundio [facility] HB ECG ROUTINE & RHYTHM STRIP 2024-01-09 21:13:02 Abundio [facility] POCT GLUCOSE (AUTOMATED) 2023-12-15 12:43:00 [facility]23-12-15 10:26:00 Reema [facility] TROPONIN I 2023-12-15 10:26:00 Reema [facility] BASIC METABOLIC PANEL (NA, K , CL, CO2, GLUCOSE, BUN, CREATININE, CA) 2023-12-15 10:26:00 Reema [facility] CBC WITH DIFF 2023-12-15 10:26:00 Daria [facility] N-TERMINAL PRO-BNP 2023-12-15 10:26:00 Reema [facility] TROPONIN I 2023-12-15 03:21:00 Reema [facility] FREE T4 2023-12-15 03:21:00 Reema [facility] DIGOXIN 2023-12-15 03:21:00 Daria [facility] POCT GLUCOSE (AUTOMATED) 2023-12-15 00:56:00 Reema [facility] TROPONIN I 2023-12-14 21:05:00 Singer [facility] THYROID STIMULATING HORMONE 2023-12-14 21:05:00 Reema [facility] FREE T3 2023-12-14 21:05:00 Reema [facility] XR CHEST 1 VW 2023-12-14 19:25:00 Singer [facility] TROPONIN I 2023-12-14 19:19:00 Singer [facility] COMP. METABOLIC PANEL ([id number]) 2023-12-14 19:19:00 Singer [facility] CBC WITH DIFF 2023-12-14 19:19:00 Singer [facility] D-DIMER 2023-12-14 19:19:00 Singer [facility] N-TERMINAL PRO-BNP 2023-12-14 19:19:00 Singer [facility] EKG-12 LEAD 2023-12-14 18:38:57 Tal Benavidez [facility] POCT GLUCOSE (AUTOMATED) 2023-12-03 21:23:00 Connor Renee [facility] BASIC METABOLIC PANEL (NA, K , CL, CO2, GLUCOSE, BUN, CREATININE, CA) 2023-12-03 17:58:00 Mukesh Tabor [facility] POCT GLUCOSE (AUTOMATED) 2023-12-03 16:51:00 Connor Renee [facility] POCT GLUCOSE (AUTOMATED) 2023-12-03 13:00:00 Connor Renee [facility] MAGNESIUM 2023-12-03 09:21:00 Ginny Mariaelena [facility] HEPATIC FUNCTION PANEL ([id number]) (ALB,T.PRO,BILI T,BU/BC,ALT,AST,ALK PHOS) 2023-12-03 09:21:00 Ginny Mariaelena [facility] BASIC METABOLIC PANEL (NA, K , CL, CO2, GLUCOSE, BUN, CREATININE, CA) 2023-12-03 09:21:00 Mihir Grossabella [facility] AC PANEL 21 + LACTIC ACID 2023-12-03 01:45:00 Ginny [facility] MRSA / MSSA SCREEN BY PCRRED 2023-12-03 01:45:00 Ginny Mariaelena [facility] CT CHEST PULMONARY ANGIOGRAM 2023-12-02 19:32:14 Connor Renee [facility] XR CHEST 1 VW 2023-12-02 19:04:00 Connor Renee [facility] BLOOD CULTURE SCREEN 2023-12-02 18:53:00 Connor Renee [facility] TROPONIN I 2023-12-02 18:53:00 Connor Renee [facility] COMP. METABOLIC PANEL ([id number]) 2023-12-02 18:53:00 Connor Renee [facility] CBC WITH DIFF 2023-12-02 18:53:00 Connor Renee [facility] RAPID INFLUENZA A/B 2023-12-02 18:53:00 Connor Renee [facility] N-TERMINAL PRO-BNP 2023-12-02 18:53:00 Connor Renee [facility] COVID-19 (ID NOW RAPID TESTING) 2023-12-02 18:53:00 Connor Renee [facility] BLOOD CULTURE SCREEN 2023-12-02 18:49:00 Connor Renee [facility] AC ABG + LACTIC ACID 2023-12-02 18:26:00 Connor Renee [facility] HB ECG ROUTINE & RHYTHM STRIP 2023-12-02 18:06:10 Connor Renee [facility] POCT GLUCOSE (AUTOMATED) 2023-11-28 16:40:00 Cr Altamirano [facility] PHOSPHORUS 2023-11-28 09:22:00 Leander [facility] MAGNESIUM 2023-11-28 09:22:00 [facility] COMP. METABOLIC PANEL ([id number]) 2023-11-28 09:22:00 [facility] CBC WITH DIFF 2023-11-28 09:22:00 [facility] N-TERMINAL PRO-BNP 2023-11-28 09:22:00 Torrey Baez [facility] POCT GLUCOSE (AUTOMATED) 2023-11-28 01:31:00 Lorenzo Ventura [facility] POCT GLUCOSE (AUTOMATED) 2023-11-27 21:45:00 Lorenzo Hemrosalie [facility] POCT GLUCOSE (AUTOMATED) 2023-11-27 16:30:00 Lorenzo Hemrosalie [facility] POCT GLUCOSE (AUTOMATED) 2023-11-27 12:39:00 Lorenzo Ventura [facility] LACTIC ACID WHOLE BLOOD 2023-11-27 06:35:00 [facility] MAGNESIUM 2023-11-27 06:34:00 [facility] COMP. METABOLIC PANEL ([id number]) 2023-11-27 06:34:00 Leander [facility] URINE DRUG (IMMUNOASSAY) - COMPREHENSIVE DRUG SCREEN 2023-11-27 03:59:00 Leander [facility] POCT GLUCOSE (AUTOMATED) 2023-11-27 02:25:00 Lorenzo Ventura [facility] CT HEAD WO CONTRAST 2023-11-26 21:56:31 Leander [facility] MAGNESIUM 2023-11-26 21:32:00 [facility] COMP. METABOLIC PANEL ([id number]) 2023-11-26 21:32:00 [facility]ander [facility] POCT GLUCOSE (AUTOMATED) 2023-11-26 21:11:00 Lorenzo Ventura [facility] VALPROIC ACID, FREE 2023-11-26 18:07:00 Leander [facility] KEPPRA (LEVETIRACETAM) 2023-11-26 18:07:00 [facility] LACTIC ACID WHOLE BLOOD 2023-11-26 18:07:00 Leander [facility] POCT GLUCOSE (AUTOMATED) 2023-11-26 17:05:00 Lorenzo Ventura [facility] MAGNESIUM 2023-11-26 13:28:00 Raghu Castellanos [facility] VITAMIN B12, LEVEL 2023-11-26 13:28:00 [facility] FOLATE 2023-11-26 13:28:00 [facility]ander [facility] COMP. METABOLIC PANEL ([id number]) 2023-11-26 13:28:00 Raghu Castellanos [facility] CBC WITH DIFF 2023-11-26 13:28:00 [facility] LACTIC ACID WHOLE BLOOD 2023-11-26 09:52:00 Robinson Shin [facility] POCT GLUCOSE (AUTOMATED) 2023-11-26 02:13:00 Lorenzo Ventura [facility] LACTIC ACID WHOLE BLOOD 2023-11-26 00:53:00 Raghu Castellaons [facility] ELECTROENCEPHALOGRAM 2023-11-26 00:00:00 Leander [facility] POCT GLUCOSE (AUTOMATED) 2023-11-25 20:59:00 Lorenzo Ventura [facility] LACTIC ACID WHOLE BLOOD 2023-11-25 20:56:00 Raghu Castellanos [facility] MAGNESIUM 2023-11-25 20:55:00 Raghu Castellanos [facility] COMP. METABOLIC PANEL ([id number]) 2023-11-25 20:55:00 Raghu Castellanos [facility] POCT GLUCOSE (AUTOMATED) 2023-11-25 16:58:00 Lorenzo Hemrosalie [facility] POCT GLUCOSE (AUTOMATED) 2023-11-25 13:04:00 Lorenzo Ventura [facility] LACTIC ACID WHOLE BLOOD 2023-11-25 09:25:00 Jessica [facility] MAGNESIUM 2023-11-25 09:24:00 Raghu Castellanos [facility] COMP. METABOLIC PANEL ([id number]) 2023-11-25 09:24:00 Jessica [facility] CBC WITH DIFF 2023-11-25 09:24:00 [facility]ander [facility] MAGNESIUM 2023-11-25 04:52:00 [facility]ander [facility] COMP. METABOLIC PANEL ([id number]) 2023-11-25 04:52:00 [facility]ander [facility] LACTIC ACID WHOLE BLOOD 2023-11-25 04:52:00 Leander [facility] POCT GLUCOSE (AUTOMATED) 2023-11-25 03:00:00 Lorenzo Ventura [facility] TROPONIN I 2023-11-25 02:59:00 Jessica [facility] COMP. METABOLIC PANEL ([id number]) 2023-11-25 02:59:00 Jessica [facility] HIV 1/2 AG-AB WITH REFLEX 2023-11-25 02:59:00 Jessica [facility] CT ABDOMEN PELVIS W CONTRAST 2023-11-24 22:24:00 Leander [facility] POCT GLUCOSE (AUTOMATED) 2023-11-24 21:21:00 Lorenzo Ventura [facility] MAGNESIUM 2023-11-24 21:08:00 Leander [facility] COMP. METABOLIC PANEL ([id number]) 2023-11-24 21:08:00 Leander [facility] LACTIC ACID WHOLE BLOOD 2023-11-24 21:08:00 Nestor Lopez [facility] POCT GLUCOSE (AUTOMATED) 2023-11-24 17:43:00 Lorenzo Hemrosalie [facility] POCT GLUCOSE (AUTOMATED) 2023-11-24 17:43:00 Lorenzo Ventura [facility] MAGNESIUM 2023-11-24 15:47:00 Leander [facility] COMP. METABOLIC PANEL ([id number]) 2023-11-24 15:47:00 Leander [facility] ACTIVATED PARTIAL THRMPLAS DAVID 2023-11-24 15:47:00 Uli [facility] LACTIC ACID WHOLE BLOOD 2023-11-24 15:47:00 Tabor, [facility] MAGNESIUM 2023-11-24 15:47:00 Leander [facility] COMP. METABOLIC PANEL ([id number]) 2023-11-24 15:47:00 Leander [facility] ACTIVATED PARTIAL THRMPLAS DAVID 2023-11-24 15:47:00 Uli [facility] LACTIC ACID WHOLE BLOOD 2023-11-24 15:47:00 Leander [facility] POCT GLUCOSE (AUTOMATED) 2023-11-24 12:33:00 Lorenzo Hemrosalie [facility] POCT GLUCOSE (AUTOMATED) 2023-11-24 12:33:00 Lorenzo Hemrosalie [facility] MAGNESIUM 2023-11-24 10:03:00 Leander [facility] COMP. METABOLIC PANEL ([id number]) 2023-11-24 10:03:00 Leander [facility] CBC WITH DIFF 2023-11-24 10:03:00 Leander [facility] LACTIC ACID WITH 3 HOUR REFLEX 2023-11-24 10:03:00 Leander [facility] MAGNESIUM 2023-11-24 10:03:00 Leander [facility] COMP. METABOLIC PANEL ([id number]) 2023-11-24 10:03:00 Leander [facility] CBC WITH DIFF 2023-11-24 10:03:00 Leander [facility] LACTIC ACID WITH 3 HOUR REFLEX 2023-11-24 10:03:00 Leander [facility] ACTIVATED PARTIAL THRMPLAS DAVID 2023-11-24 06:13:00 Uli [facility] ACTIVATED PARTIAL THRMPLAS DAVID 2023-11-24 06:13:00 Uli [facility] POCT GLUCOSE (AUTOMATED) 2023-11-24 03:15:00 Lorenzo Ventura [facility] POCT GLUCOSE (AUTOMATED) 2023-11-24 03:15:00 Lorenzo Ventura [facility] ACTIVATED PARTIAL THRMPLAS DAVID 2023-11-23 23:09:00 Uli [facility] ACTIVATED PARTIAL THRMPLAS DAVID 2023-11-23 23:09:00 Uli [facility] POCT GLUCOSE (AUTOMATED) 2023-11-23 21:28:00 Lorenzo Ventura [facility] POCT GLUCOSE (AUTOMATED) 2023-11-23 21:28:00 Lorenzo Ventura [facility] CATH PROCEDURE LOG 2023-11-23 20:38:36 Lisandra [facility] CATH PROCEDURE LOG 2023-11-23 20:38:36 Lisandra [facility] CARDIAC CATHETERIZATION 2023-11-23 20:11:00 Lisandra [facility] CARDIAC CATHETERIZATION 2023-11-23 20:11:00 Lisandra [facility] CARDIAC CATHETERIZATION 2023-11-23 20:11:00 Lisandra [facility] CARDIAC CATHETERIZATION 2023-11-23 20:11:00 Lisandra [facility] POCT GLUCOSE (AUTOMATED) 2023-11-23 17:18:00 [facility] POCT GLUCOSE (AUTOMATED) 2023-11-23 17:18:00 [facility] POCT GLUCOSE (AUTOMATED) 2023-11-23 16:50:00 [facility] POCT GLUCOSE (AUTOMATED) 2023-11-23 16:50:00 Lorenzo [facility] ACTIVATED PARTIAL THRMPLAS DAVID 2023-11-23 15:13:00 Uli [facility] ACTIVATED PARTIAL THRMPLAS DAVID 2023-11-23 15:13:00 Uli [facility] LACTIC ACID WHOLE BLOOD 2023-11-23 15:12:00 Aleida [facility] LACTIC ACID WHOLE BLOOD 2023-11-23 15:12:00 Aleida [facility] POCT GLUCOSE (AUTOMATED) 2023-11-23 12:47:00 [facility] POCT GLUCOSE (AUTOMATED) 2023-11-23 12:47:00 [facility] MAGNESIUM 2023-11-23 07:52:00 Louise [facility] HEPATIC FUNCTION PANEL ([id number]) (ALB,T.PRO,BILI T,BU/BC,ALT,AST,ALK PHOS) 2023-11-23 07:52:00 Mukesh Tabor [facility] BASIC METABOLIC PANEL (NA, K , CL, CO2, GLUCOSE, BUN, CREATININE, CA) 2023-11-23 07:52:00 Louise [facility] CBC WITH DIFF 2023-11-23 07:52:00 Louise [facility] ACTIVATED PARTIAL THRMPLAS DAVID 2023-11-23 07:52:00 Uli [facility] LACTIC ACID WHOLE BLOOD 2023-11-23 07:52:00 Robinson Shin [facility] MAGNESIUM 2023-11-23 07:52:00 Louise [facility] HEPATIC FUNCTION PANEL ([id number]) (ALB,T.PRO,BILI T,BU/BC,ALT,AST,ALK PHOS) 2023-11-23 07:52:00 Mukesh Tabor [facility] BASIC METABOLIC PANEL (NA, K , CL, CO2, GLUCOSE, BUN, CREATININE, CA) 2023-11-23 07:52:00 Louise [facility] CBC WITH DIFF 2023-11-23 07:52:00 Louise [facility] ACTIVATED PARTIAL THRMPLAS DAVID 2023-11-23 07:52:00 Cris Mcnally [facility] LACTIC ACID WHOLE BLOOD 2023-11-23 07:52:00 Aleida [facility] LACTIC ACID WHOLE BLOOD 2023-11-23 05:00:00 Aleida [facility] LACTIC ACID WHOLE BLOOD 2023-11-23 05:00:00 Aleida [facility] LACTIC ACID WHOLE BLOOD 2023-11-23 03:12:00 Aleida [facility] LACTIC ACID WHOLE BLOOD 2023-11-23 03:12:00 Aleida [facility] LACTIC ACID WHOLE BLOOD 2023-11-23 00:57:00 Aleida [facility] LACTIC ACID WHOLE BLOOD 2023-11-23 00:57:00 Aleida [facility] POCT GLUCOSE (AUTOMATED) 2023-11-23 00:56:00 Lorenzo Ventura [facility] POCT GLUCOSE (AUTOMATED) 2023-11-23 00:56:00 Lorenzo Ventura [facility] LACTIC ACID WHOLE BLOOD 2023-11-22 23:49:00 [facility] 2023-11-22 23:49:00 Aleida [facility] POCT GLUCOSE (AUTOMATED) 2023-11-22 21:49:00 Lorenzo Ventura [facility] POCT GLUCOSE (AUTOMATED) 2023-11-22 21:49:00 Lorenzo Ventura [facility] LACTIC ACID WHOLE BLOOD 2023-11-22 21:41:00 [facility]ander [facility] LACTIC ACID WHOLE BLOOD 2023-11-22 21:41:00 Leander [facility] POCT GLUCOSE (AUTOMATED) 2023-11-22 21:01:00 Lorenzo Trevinorosalie [facility] POCT GLUCOSE (AUTOMATED) 2023-11-22 21:01:00 Lorenzo Ventura [facility] ACTIVATED PARTIAL THRMPLAS DAVID 2023-11-22 19:46:00 Uli [facility] LACTIC ACID WHOLE BLOOD 2023-11-22 19:46:00 Leander [facility] ACTIVATED PARTIAL THRMPLAS DAVID 2023-11-22 19:46:00 Uli [facility] LACTIC ACID WHOLE BLOOD 2023-11-22 19:46:00 Leander [facility] LACTIC ACID WHOLE BLOOD 2023-11-22 17:22:00 [facility] L[facility]IC ACID WHOLE BLOOD 2023-11-22 17:22:00 [facility] POCT GLUCOSE (AUTOMATED) 2023-11-22 17:00:00 Ignacio [facility] POCT GLUCOSE (AUTOMATED) 2023-11-22 17:00[facility]00 [facility] ARTERIAL DUPLEX BILATERAL - BY VASCULAR LAB 2023-11-22 16:43:47 [facility] LOWER EXTREMITY ARTERIAL DUPLEX BILATERAL - BY VASCULAR LAB 2023-11-22 16:43:47 [facility]y [facility] TRANSTHORACIC ECHO (TTE) COMPLETE W/ CONTRAST 2023-11-22 15:50[facility] COMPLETE W/ CONTRAST 2023-11-22 15:50[facility] 2023-11-22 14:54:18 Faby [facility] ABDOMEN LIMITED 2023-11-22 14:54:18 [facility] HB ECG ROUTINE & RHYTHM STRIP 2023-11-22 14:28:42 Louise [facility] HB ECG ROUTINE & RHYTHM STRIP 2023-11-22 14:28:42 Louise [facility] COMP. METABOLIC PANEL ([id number]) 2023-11-22 14:26:00 Uli [facility] IRON PANEL 2023-11-22 14:26:00 Uli [facility] LACTIC ACID WHOLE BLOOD 2023-11-22 14:26:00 [facility] COMP. METABOLIC PANEL ([id number]) 2023-11-22 14:26:00 Uli [facility] IRON PANEL 2023-11-22 14:26:00 Uli [facility] LACTIC ACID WHOLE BLOOD 2023-11-22 14:26:00 [facility] POCT GLUCOSE (AUTOMATED) 2023-11-22 13:26:00 Ignacio [facility] POCT GLUCOSE (AUTOMATED) 2023-11-22 13:26:00 Ignacio [facility] CT CHEST PULMONARY ANGIOGRAM 2023-11-22 13:10:36 Uli [facility] CT CHEST PULMONARY ANGIOGRAM 2023-11-22 13:10:36 Uli [facility] PHOSPHORUS 2023-11-22 11:45:00 Uli [facility] CREATINE KINASE 2023-11-22 11:45:00 Louise [facility] FERRITIN SERUM 2023-11-22 11:45:00 Uli [facility] TROPONIN I 2023-11-22 11:45:00 Uli [facility] LIPID PANEL ([id number])(TOTAL CHOLESTEROL, TRIGLYCERIDES, HDL) 2023-11-22 11:45:00 Uli [facility] CBC WITH DIFF 2023-11-22 11:45:00 Uli [facility] GLYCOSYLATED HEMOGLOBIN (A1C) 2023-11-22 11:45:00 Uli [facility] PHOSPHORUS 2023-11-22 11:45:00 Uli [facility] CREATINE KINASE 2023-11-22 11:45:00 Janeth Gil [facility] FERRITIN SERUM 2023-11-22 11:45:00 Uli [facility] TROPONIN I 2023-11-22 11:45:00 Uli [facility] LIPID PANEL ([id number])(TOTAL CHOLESTEROL, TRIGLYCERIDES, HDL) 2023-11-22 11:45:00 Uli [facility] CBC WITH DIFF 2023-11-22 11:45:00 Uli [facility] GLYCOSYLATED HEMOGLOBIN (A1C) 2023-11-22 11:45:00 Uli [facility] BLOOD CULTURE SCREEN 2023-11-22 09:37:00 Uli [facility] BLOOD CULTURE SCREEN 2023-11-22 09:37:00 Uli [facility] BLOOD CULTURE SCREEN 2023-11-22 09:36:00 Uli [facility] BLOOD CULTURE SCREEN 2023-11-22 09:36:00 Uli [facility] LOWER EXTREMITY VEIN WITH COMPRESSION BILATERAL (ONLY FOR RULE OUT DVT) 2023-11-22 08:09:01 Uli [facility] LOWER EXTREMITY VEIN WITH COMPRESSION BILATERAL (ONLY FOR RULE OUT DVT) 2023-11-22 08:09:01 Uli [facility] LACTIC ACID WHOLE BLOOD 2023-11-22 08:03:00 Uli [facility] LACTIC ACID WHOLE BLOOD 2023-11-22 08:03:00 Uli [facility] MAGNESIUM 2023-11-22 08:02:00 Uli [facility] TROPONIN I 2023-11-22 08:02:00 Uli [facility] PROTHROMBIN TIME / INR 2023-11-22 08:02:00 Uli [facility] D-DIMER 2023-11-22 08:02:00 Uli [facility] ACTIVATED PARTIAL THRMPLAS DAVID 2023-11-22 08:02:00 Uli, [facility] PROCALCITONIN 2023-11-22 08:02:00 Uli, [facility] MAGNESIUM 2023-11-22 08:02:00 Uli, [facility] TROPONIN I 2023-11-22 08:02:00 Uli, [facility] PROTHROMBIN TIME / INR 2023-11-22 08:02:00 Uli, [facility] D-DIMER 2023-11-22 08:02:00 Uli, [facility] ACTIVATED PARTIAL THRMPLAS DAVID 2023-11-22 08:02:00 Uli, [facility] PROCALCITONIN 2023-11-22 08:02:00 Uli, [facility] XR SHOULDER 2+ VW RIGHT 2023-11-22 07:33:00 Uli, [facility] XR SHOULDER 2+ VW RIGHT 2023-11-22 07:33:00 Uli, [facility] URINALYSIS 2023-11-22 04:33:00 Megan Rondon [facility] URINE DRUG (IMMUNOASSAY) - COMPREHENSIVE DRUG SCREEN W/O REFLEX 2023-11-22 04:33:00 Alcon [facility] URINALYSIS 2023-11-22 04:33:00 [facility]IMMUNOASSAY) - COMPREHENSIVE DRUG SCREEN W/O REFLEX 2023-11-22 04:33:00 Megan Rondon [facility] PROTHROMBIN TIME / INR 2023-11-22 04:25:00 Megan Rondon [facility] ACTIVATED PARTIAL THRMPLAS DAVID 2023-11-22 04:25:00 Megan Rondon [facility] PROTHROMBIN TIME / INR 2023-11-22 04:25:00 Megan Rondon [facility] ACTIVATED PARTIAL THRMPLAS DAVID 2023-11-22 04:25:00 Megan Rondon [facility] CRITICAL CARE 2023-11-22 04:18:14 Megan Rondon [facility] CRITICAL CARE 2023-11-22 04:18:14 Megan Rondon [facility] FREE T4 2023-11-22 02:57:00 Megan Rondon [facility] THYROID STIMULATING HORMONE 2023-11-22 02:57:00 Megan Rondon [facility] RAPID INFLUENZA A/B 2023-11-22 02:57:00 [facility] (ID NOW RAPID TESTING) 2023-11-22 02:57:00 [facility] COVID INTERPRETATION 2023-11-22 02:57:00 Megan Rondon [facility] FREE T4 2023-11-22 02:57:00 Megan Rondon [facility] THYROID STIMULATING HORMONE 2023-11-22 02:57:00 [facility] RAPID INFLUENZA A/B 2023-11-22 02:57:00 [facility] (ID NOW RAPID TESTING) 2023-11-22 02:57:00 Megan Rondon [facility] LAB ONLY COVID INTERPRETATION 2023-11-22 02:57:00 [facility] AMYLASE 2023-11-22 02:52:00 [facility] LIPASE 2023-11-22 02:52:00 Alcon [facility] TROPONIN I 2023-11-22 02:52:00 [facility] COMP. METABOLIC PANEL ([id number]) 2023-11-22 02:52:00 [facility] CBC WITH DIFF 2023-11-22 02:52:00 [facility] N-TERMINAL PRO-BNP 2023-11-22 02:52:00 [facility] AMYLASE 2023-11-22 02:52:00 [facility] LIPASE 2023-11-22 02:52:00 Alcon [facility] TROPONIN I 2023-11-22 02:52:00 [facility] COMP. METABOLIC PANEL ([id number]) 2023-11-22 02:52:00 [facility] CBC WITH DIFF 2023-11-22 02:52:00 Megan Rondon [facility] N-TERMINAL PRO-BNP 2023-11-22 02:52:00 Megan Rondon [facility] XR CHEST 1 VW 2023-11-22 02:34:13 Megan Rondon [facility] XR CHEST 1 VW 2023-11-22 02:34:13 Megan Rondon [facility] HB ECG ROUTINE & RHYTHM STRIP 2023-11-22 02:16:24 Megan Rondon [facility] POCT-GLUCOSE METER 2023-09-08 08:40:00 Bud [facility] CBC W/PLT COUNT & AUTO DIFFERENTIAL 2023-09-08 04:[facility] 2023-09-08 [facility] 2023-09-08 04:16[facility] PHOS[facility] 2023-09-08 04:16[facility] W/[facility]T COUNT & AUTO DIFFERENTIAL 2023-09-08 04:16:00 [facility] POCT-GLUCOSE METER 2023-09-07 21:29:00 Bud [facility] XR KNEE 3 VIEWS LEFT 2023-09-07 19:21:02 [facility] DOPPLER LEGS BILATERAL 2023-09-07 12:45:00 [facility] CBC W/PLT COUNT & AUTO DIFFERENTIAL 2023-09-07 03:17:00 [facility]IC PANEL 2023-09-07 03:17:00 [facility] 2023-09-07 03:17:00 [facility] PHOS[facility] 2023-09-07 03:17:00 [facility] CBC W/PLT COUNT & AUTO DIFFERENTIAL 2023-09-07 03:17:00 [facility] POCT-GLUCOSE METER 2023-09-06 21:17:00 Bud [facility] POCT-GLUCOSE METER 2023-09-06 18:37:00 Bud [facility] POCT-GLUCOSE METER 2023-09-06 13:16:00 Ferrer [facility] POCT-GLUCOSE METER 2023-09-06 08:21:00 Bud [facility] CBC W/PLT COUNT & AUTO DIFFERENTIAL 2023-09-06 04:49:00 Joshua [facility] BASIC METABOLIC PANEL 2023-09-06 04:49:00 Joshua [facility] MAGNESIUM 2023-09-06 04:49:00 Joshua [facility] PHOSPHORUS 2023-09-06 04:49:00 Joshua [facility] CBC W/PLT COUNT & AUTO DIFFERENTIAL 2023-09-06 04:49:00 Joshua [facility] POCT-GLUCOSE METER 2023-09-05 21:24:00 Bud [facility] MR BRAIN WITH & WITHOUT IV CONTRAST 2023-09-05 11:25:07 Sandi Aleman [facility] POCT-GLUCOSE METER 2023-09-05 08:10:00 Bud [facility] CBC W/PLT COUNT & AUTO DIFFERENTIAL 2023-09-05 04:44:00 Joshua [facility] BASIC METABOLIC PANEL 2023-09-05 04:44:00 [facility] 2023-09-05 04:44:00 [facility] PHOS[facility]US 2023-09-05 04:44:00 Joshua [facility] POCT-GLUCOSE METER 2023-09-05 04:44:00 [facility] W/[facility] & AUTO DIFFERENTIAL 2023-09-05 04:44:00 [facility] POCT-GLUCOSE METER 2023-09-04 21:38:00 [facility] POCT-GLU[facility]SE METER 2023-09-04 15:42:00 [facility] SARS-[facility]OV2/INFLUENZA/RSV RT-PCR 2023-09-04 11:25:00 Uli, [facility] POCT-GLUCOSE METER 2023-09-04 10:53[facility] 2023-09-04 08:04:00 Sabas [facility] PROCALCITONIN 2023-09-04 06:56:00 Uli [facility] IRON, TIBC, % SAT. (WITHOUT FERRITIN) 2023-09-04 06:56:00 Uli [facility] FERRITIN 2023-09-04 06:56:00 Uli [facility] BLOOD CULTURE 2023-09-04 06:37:00 Randall, [facility] MR LUMBAR SPINE WITHOUT IV CONTRAST 2023-09-04 05:47:25 Postsantana [facility] MR THORACIC SPINE WITHOUT IV CONTRAST 2023-09-04 04:53:00 Melvi [facility] MR CERVICAL SPINE WITHOUT IV CONTRAST 2023-09-04 04:18:00 Melvi [facility] CT THORACIC SPINE WITHOUT IV CONTRAST 2023-09-04 03:08:[address] [facility] [address] LUMBAR SPINE WITHOUT IV CONTRAST 2023-09-04 03:08:00 Randall [facility] LACTIC ACID, VENOUS 2023-09-04 01:42:00 [facility] TYPE AND SCREEN, AUTOMATED 2023-09-04 01:42:00 [facility] CBC W/PLT COUNT & AUTO DIFFERENTIAL 2023-09-04 00:51:00 Melvi [facility] COMPREHENSIVE METABOLIC PANEL 2023-09-04 00:51:00 Melvi [facility] MAGNESIUM 2023-09-04 00:51:00 Melvi [facility] PHOSPHORUS 2023-09-04 00:51:00 Melvi [facility] PROTHROMBIN TIME/INR 2023-09-04 00:51:00 Melvi [facility] APTT 2023-09-04 00:51:00 Melvi [facility] B-TYPE NATRIURETIC FACTOR (BNP) 2023-09-04 00:51:00 Melvi [facility] URINALYSIS WITHOUT MICROSCOPIC 2023-09-04 00:51:00 Melvi [facility] RAPID DRUG SCREEN, URINE 2023-09-04 00:51:00 Melvi [facility] D-DIMER 2023-09-04 00:51:00 BershLondon lewis [facility] FIBRINOGEN 2023-09-04 00:51:00 Jorge Pereira [facility] CBC W/PLT COUNT & AUTO DIFFERENTIAL 2023-09-04 00:51:00 Melvi [facility] EKG-SCANNED 2023-09-04 00:00:00 Provider, Default Scanning [facility] LACTIC ACID WHOLE BLOOD 2023-08-12 20:31:00 Mj Bryan [facility] COMP. METABOLIC PANEL ([id number]) 2023-08-12 20:29:00 Mj Bryan [facility] CBC WITH DIFF 2023-08-12 20:29:00 Singer Mj [facility] CONSENT/REFUSAL FOR DIAGNOSI S AND TREATMENT 2023-08-12 19:43:16 Doctor Unassigned, Ranson [facility] TRANSESOPHAGEAL ECHO 2023-06-16 11:05:00 Aydee Go [facility] T SPOT TB 2023-06-15 04:51:00 Lauren Blair [facility] FUNGITELL R B-D-GLUCAN WITH REFLEX TO TITER 2023-06-15 04:51:00 Rossy tucker Gonzalez [facility] ASPERGILLUS GALACTOMANNAN ANTIGEN 2023-06-15 04:51:00 Rossy deisyde Raul [facility] VANCOMYCIN LEVEL, TROUGH 2023-06-15 04:51:00 Kaylene Mendosa [facility] T-SPOT(R).TB (QUEST) 2023-06-15 04:27:00 Provider, Not In System [facility] T-SPOT(R).TB (QUEST) 2023-06-15 04:27:00 System, Provider Not In [facility] ECHO W CONTRAST & DOPPLER 2023-06-14 09:22:00 [facility] HEMOGLOBIN A1C 2023-06-14 04:08:00 Marianela Burgess [facility] CBC (HEMOGRAM ONLY) 2023-06-14 04:08:00 [facility] BASIC METABOLIC PANEL 2023-06-14 04:08:00 [facility] CRYPTOCOCCAL ANTIGEN 2023-06-13 17:21:00 Rossy tucker Gonzalez [facility] HC LAB HIV-1 AG W/HIV-1&2 AB 2023-06-13 17:21:00 Lauren Blair [facility] VENOUS DOPPLER ARM, LEFT 2023-06-13 17:20:00 Marianela Burgess [facility] LEGIONELLA ANTIGEN, URINE 2023-06-13 17:00:00 [facility] SPUTUM CULTURE + GRAM STAIN 2023-06-13 14:33:00 [facility] MR LUMBAR SPINE WITH & WITHOUT IV CONTRAST 2023-06-13 13:03:47 Burt Nelson [facility] ECG 12-LEAD 2023-06-13 11:47:02 [facility] ECG 12-LEAD 2023-06-13 11:47:02 Unknown, Hl7 Doctor [facility] ECG 12-LEAD 2023-06-13 11:47:02 Unknown, Hl7 Doctor [facility] MRSA SCREEN 2023-06-13 09:19:00 [facility] CBC W/PLT COUNT & AUTO DIFFERENTIAL 2023-06-13 06:03:00 Marianela Burgess [facility] COMPREHENSIVE METABOLIC PANEL 2023-06-13 06:03:00 Sunesara, Rahana [facility] PROTHROMBIN TIME/INR 2023-06-13 06:03:00 [facility] CREATINE KINASE (CK) 2023-06-13 06:03:00 Abbi Nazariocory [facility] CBC W/PLT COUNT & AUTO DIFFERENTIAL 2023-06-13 06:03:00 [facility] BLOOD CULTURE 2023-06-13 06:02:00 [facility] CBC W/PLT COUNT & AUTO DIFFERENTIAL 2023-06-02 04:41:00 Kimberley [facility] BASIC METABOLIC PANEL 2023-06-02 04:41:00 Kimberley [facility] MAGNESIUM 2023-06-02 04:41:00 Kimberley [facility] PHOSPHORUS 2023-06-02 04:41:00 Kimberley [facility] CBC W/PLT COUNT & AUTO DIFFERENTIAL 2023-06-02 04:41:00 Kimberley [facility] XR SPINE LUMBAR 1 VIEW 2023-06-01 10:31:00 [facility] XR SPINE LUMBAR 1 VIEW 2023-06-01 09:46:00 [facility] LAMINECTOMY, SPINE, LUMBAR 2023-06-01 09:10:00 [facility] PROCEDURE W/ C-ARM 2023-06-01 09:10:00 Poston [facility] LAMINECTOMY, SPINE, LUMBAR 2023-06-01 07:30:00 Poston [facility] PROCEDURE W/ C-ARM 2023-06-01 07:30:00 [facility] SCREEN, URINE 2023-06-01 04:33:00 [facility] BASIC METABOLIC PANEL 2023-05-31 22:55:00 Dallas Gomez [facility] CBC W/PLT COUNT & AUTO DIFFERENTIAL 2023-05-31 22:55:00 Dallas Gomez [facility] PT/APTT 2023-05-31 22:55:00 Dallas Gomez [facility] CBC W/PLT COUNT & AUTO DIFFERENTIAL 2023-05-31 22:55:00 Dallas Gomez [facility] CT NECK SOFT TISSUE WITHOUT IV CONTRAST 2023-05-31 09:39:30 [facility] TYPE AND SCREEN, AUTOMATED 2023-05-31 09:13[facility] BASIC METABOLIC PANEL 2023-05-29 06:43:00 [facility] CBC W/PLT COUNT & AUTO DIFFERENTIAL 2023-05-29 06:43:00 [facility] CBC W/PLT COUNT & AUTO DIFFERENTIAL 2023-05-29 06:43:00 [facility] XR SPINE CERVICAL 2 OR 3 VIEWS 2023-05-28 18:57:00 [facility] FL FLUORO NON-SPECIFIC UP TO 1 HOUR 2023-05-28 10:48:00 [facility] FL FLUORO NON-SPECIFIC UP TO 1 HOUR 2023-05-28 10:07:00 [facility] DISCECTOMY, SPINE, CERVICAL, ANTERIOR APPROACH, WITH FUSION 2023-05-28 08:15:00 [facility] INSERTION, HARDWARE, SPINAL 2023-05-28 08:15:00 [facility] PROCEDURE, ALLOGRAFT, FOR SPINE SURGERY 2023-05-28 08:15:00 [facility] AUTOGRAFT FOR SPINE SURGERY 2023-05-28 08:15:00 Jose [place] Adi [facility] PROCEDURE W/ C-ARM 2023-05-28 08:15:00 [facility] NEUROPHYSIOLOGIC MONITORING, INTRAOPERATIVE 2023-05-28 08:15:00 Jose [facility] PROCEDURE, USING OPERATING MICROSCOPE 2023-05-28 08:15:00 Jose, Adam [facility] HCG, QUANTITATIVE, 2023-05-28 07:42:00 Yue Bui [facility] TYPE AND SCREEN, AUTOMATED 2023-05-28 07:42:00 Quin Scruggs [facility] XR CHEST 1 VIEW PORTABLE / BEDSIDE 2023-04-01 15:32:16 Thomas Lozoya [facility] B-TYPE NATRIURETIC FACTOR (BNP) 2023-04-01 13:32:00 Thomas Lozoya [facility] ECHO W CONTRAST & DOPPLER 2023-03-31 20:18:37 Jasen Sharp [facility] MR CERVICAL SPINE WITHOUT IV CONTRAST 2023-03-31 09:25:00 Edward Lewis [facility] CBC (HEMOGRAM ONLY) 2023-03-31 03:45[facility] 2023-03-31 03:45[facility]00 [facility] ARTERIAL DOPPLER LEGS BILATERAL 2023-03-30 15:45:00 [facility] ARTERIAL (ALEISHA'S W/ DOPPLER) ONLY 2023-03-30 15:44:00 [facility] 12-[facility]AD 2023-03-30 13:06:22 [facility] 12-[facility]AD 2023-03-30 13:06:22 Unknown, Hl7 [facility] MR THORACIC SPINE WITHOUT IV CONTRAST 2023-03-30 12:29:58 Eric [facility] MR LUMBAR SPINE WITHOUT IV CONTRAST 2023-03-30 11:58:00 Eric [facility] EEG AWAKE AND DROWSY 2023-03-30 09:57:53 Berry [facility] VALPROIC ACID LEVEL, TOTAL 2023-03-30 09:06:00 Liudmila Smart [facility] URINALYSIS W/ REFLEX URINE CULTURE 2023-03-30 03:54:00 Eric [facility] CBC (HEMOGRAM ONLY) 2023-03-30 03:52:00 Mariah Aldridge [facility] COMPREHENSIVE METABOLIC PANEL 2023-03-30 03:52:00 Jasen Mariah [facility] HEMOGLOBIN A1C 2023-03-30 03:52:00 Mariah Aldridge [facility] PT/APTT 2023-03-30 03:52:00 Thomas Lozoya [facility] EKG-SCANNED 2023-03-29 00:00:00 Provider, Default Scanning [facility] CT HEAD WO CONTRAST 2022-12-11 18:36:49 Alfonso Alvarado [facility] URINE DRUG (IMMUNOASSAY) - COMPREHENSIVE DRUG SCREEN 2022-12-11 17:13:00 Alfonso Alvarado [facility] URINALYSIS 2022-12-11 17:13:00 Alfonso Alvarado [facility] CT CHEST PULMONARY ANGIOGRAM 2022-12-11 16:26:39 Alfonso Alvarado [facility] MAGNESIUM 2022-12-11 14:57:00 Alfonso Alvarado Lorelei [facility] COMP. METABOLIC PANEL ([id number]) 2022-12-11 14:57:00 Alfonso Alvarado [facility] D-DIMER 2022-12-11 14:15:00 Alfonso Alvarado [facility] XR CHEST 1 VW 2022-12-11 14:10:26 Alfonso Alvarado [facility] TROPONIN I 2022-12-11 14:02:00 Alfonso Alvarado [facility] CBC WITH DIFF 2022-12-11 14:02:00 Alfonso Alvarado [facility] N-TERMINAL PRO-BNP 2022-12-11 14:02:00 Alfonso Alvarado Lorelei [facility] HB ECG ROUTINE & RHYTHM STRIP 2022-12-11 14:01:08 Alfonso Alvarado [facility] CONSENT/REFUSAL FOR DIAGNOSI S AND TREATMENT 2022-12-11 13:52:01 Doctor Unassigned, Ranson [facility] ECG 12-LEAD 2022-08-03 05:03:32 Unknown, Hl7 [facility] ECG 12-LEAD 2022-08-03 05:03:32 Unknown, Hl7 [facility] LIPID PANEL 2022-08-02 21:14:00 [facility] TSH/FREE T4 IF INDICATED 2022-08-02 21:14:00 [facility] VITAMIN B12 2022-08-02 21:14:00 [facility] HEMOGLOBIN A1C 2022-08-02 21:14:00 [facility] COMPREHENSIVE METABOLIC PANEL 2022-08-02 21:14:00 [facility] CBC W/PLT COUNT & AUTO DIFFERENTIAL 2022-08-02 21:14:00 [facility] RPR 2022-08-02 21:14:00 [facility] HC LAB HIV-1 AG W/HIV-1&2 AB 2022-08-02 21:14:00 [facility] C-REACTIVE PROTEIN 2022-08-02 21:14:00 [facility] CBC W/PLT COUNT & AUTO DIFFERENTIAL 2022-08-02 21:14:00 [facility] EKG-SCANNED 2022-08-02 00:00:00 Provider, Default Scanning [facility] CT HEAD WO CONTRAST 2022-08-01 23:52:15 Dami Lowry [facility] GALV ONLY - INFLUENZA A B RS V PCR 2022-08-01 18:28:00 eLtitia Chambers [facility] TRANSTHORACIC ECHO (TTE) COMPLETE W/ CONTRAST 2022-08-01 14:42:00 Kylee Montez [facility] MAGNESIUM 2022-08-01 10:42:00 Dami Lowry [facility] BASIC METABOLIC PANEL (NA, K , CL, CO2, GLUCOSE, BUN, CREATININE, CA) 2022-08-01 10:42:00 Dami Lowry [facility] CBC WITH DIFF 2022-08-01 10:42:00 [facility] 2022-08-01 10:42:00 Kylee Montez [facility] POCT GLUCOSE (AUTOMATED) 2022-08-01 06:56:00 Dami Lowry [facility] CRITICAL CARE 2022-07-31 22:31:36 [facility] 2022-07-31 20:52:00 Alcon [facility] URINE DRUG (IMMUNOASSAY) - COMPREHENSIVE DRUG SCREEN W/O REFLEX 2022-07-31 20:52:00 [facility] CHEST 1 VW 2022-07-31 18:45:17 [facility] LIPASE 2022-07-31 17:58:00 [facility] TROPONIN I 2022-07-31 17:58:00 Alcon [facility] COMP. METABOLIC PANEL ([id number]) 2022-07-31 17:58:00 [facility] CBC WITH DIFF 2022-07-31 17:58:00 Alcon [facility] PROTHROMBIN TIME / INR 2022-07-31 17:58:00 Alcon [facility] ACTIVATED PARTIAL THRMPLAS DAVID 2022-07-31 17:58:00 Alcon [facility] N-TERMINAL PRO-BNP 2022-07-31 17:58:00 Alcon [facility] HB ECG ROUTINE & RHYTHM STRIP 2022-07-31 17:46:28 [facility] NOTICE OF PRIVACY PRACTICES 2022-07-31 17:35:38 Doctor Unassigned, Ranson [facility] CONSENT/REFUSAL FOR DIAGNOSI S AND TREATMENT 2022-07-31 17:35:13 Doctor Unassigned, Ranson [facility] PHOSPHORUS 2022-05-08 05:51:00 Shefali [facility] MAGNESIUM 2022-05-08 05:51:00 Shefali [facility] BASIC METABOLIC PANEL (NA, K , CL, CO2, GLUCOSE, BUN, CREATININE, CA) 2022-05-08 05:51:00 Shefali [facility] CBC WITH DIFF 2022-05-08 05:51:00 Shefali Azeem [facility] BASIC METABOLIC PANEL (NA, K , CL, CO2, GLUCOSE, BUN, CREATININE, CA) 2022-05-07 07:09:00 John Cintron [facility] CBC WITH DIFF 2022-05-07 07:09:00 John Cintron [facility] POCT GLUCOSE (AUTOMATED) 2022-05-07 01:16:00 Brandyn Ibrahim [facility] HB ABO GROUPING 2022-05-06 05:07:00 [facility] (NA, K , CL, CO2, GLUCOSE, BUN, CREATININE, CA) 2022-05-06 05:04:00 Shefali [facility] CBC WITH DIFF 2022-05-06 05:04:00 Shefali [facility] KEPPRA (LEVETIRACETAM) 2022-05-06 05:04:00 Shefali [facility] MR LUMBAR SPINE WO CONTRAST 2022-05-06 02:54:37 Ender Monet [facility] ELECTROENCEPHALOGRAM 2022-05-06 00:00:00 John Cintron [facility] BASIC METABOLIC PANEL (NA, K , CL, CO2, GLUCOSE, BUN, CREATININE, CA) 2022-05-05 07:57:00 Ismael Dunn [facility] CBC WITH DIFF 2022-05-05 07:57:00 Ismael Dunn [facility] PROTHROMBIN TIME / INR 2022-05-05 07:57:00 Ismael Dunn [facility] ACTIVATED PARTIAL THRMPLAS DAVID 2022-05-05 07:57:00 Ismael Dunn [facility] FIBRINOGEN 2022-05-05 07:57:00 Ismael Dunn [facility] EMERGENCY SERVICES AGREEMENT S AND AUTHORIZATIONS 2022-05-04 05:01:00 Doctor Unassigned, Ranson [facility] VITAMIN D, 25-OH 2022-04-15 16:53:00 Sen Toledo [facility] MR THORACIC SPINE WO CONTRAST 2022-04-15 11:56:19 [facility] MR CERVICAL SPINE WO CONTRAST 2022-04-15 11:20:00 [facility] BASIC METABOLIC PANEL (NA, K , CL, CO2, GLUCOSE, BUN, CREATININE, CA) 2022-04-15 10:36:00 Charmaine Morataya [facility] TEST, URINE 2022-04-15 04:39:00 [facility] URINE DRUG (IMMUNOASSAY) - COMPREHENSIVE DRUG SCREEN 2022-04-15 04:39:00 [facility] URINALYSIS 2022-04-15 04:39:00 [facility] TRANSTHORACIC ECHO (TTE) COMPLETE W/ CONTRAST 2022-04-14 16:37:03 [facility] KEPPRA (LEVETIRACETAM) 2022-04-14 15:30:00 [facility] MAGNESIUM 2022-04-14 10:03:00 [facility] BASIC METABOLIC PANEL (NA, K , CL, CO2, GLUCOSE, BUN, CREATININE, CA) 2022-04-14 10:03:00 [facility] MR LUMBAR SPINE WO CONTRAST 2022-04-14 02:48:12 [facility] MR STROKE BRAIN WO CONTRAST 2022-04-14 02:29:[address] [facility] [address] STROKE ANGIOGRAM HEAD 2022-04-13 18:40:00 Sapna Vargas [facility] CT STROKE ANGIOGRAM NECK 2022-04-13 18:40:00 Sapna Vargas [facility] CT STROKE HEAD WO CONTRAST 2022-04-13 18:36:00 Sapna Vargas [facility] TROPONIN I 2022-04-13 18:17:00 Sapna Vargas [facility] THYROID STIMULATING HORMONE 2022-04-13 18:17:00 [facility] BASIC METABOLIC PANEL (NA, K , CL, CO2, GLUCOSE, BUN, CREATININE, CA) 2022-04-13 18:17:00 Sapna Vargas [facility] LIPID PANEL ([id number])(TOTAL CHOLESTEROL, TRIGLYCERIDES, HDL) 2022-04-13 18:17:00 [facility] CBC WITHOUT DIFF 2022-04-13 18:17:00 Sapna Vargas [facility] GLYCOSYLATED HEMOGLOBIN (A1C) 2022-04-13 18:17:00 [facility] PROTHROMBIN TIME / INR 2022-04-13 18:17:00 Sapna Vargas [facility] ACTIVATED PARTIAL THRMPLAS DAVID 2022-04-13 18:17:00 Sapna Vargas [facility] COVID-19 (ID NOW RAPID TESTING) 2022-04-13 18:17:00 Sapna Vargas [facility] LAB ONLY COVID INTERPRETATION 2022-04-13 18:17:00 Sapna Vargas [facility] HB ECG ROUTINE & RHYTHM STRIP 2022-04-13 18:15:49 Sapna Vargas [facility] CONSENT/REFUSAL FOR DIAGNOSI S AND TREATMENT 2022-04-13 18:05:14 Doctor Unassigned, [place] [facility] HOSPITAL ADMISSION 2022-04-13 05:01:00 Doctor Unassigned, [place] [facility] SARS-COV-2 COVID-19 VACCINE 12 YRS+,0.3ML,IM (PFIZER - [facility]) 2022-02-19 15:21:12 Doctor Unassigned, [place] [facility] URINE DRUG (IMMUNOASSAY) - COMPREHENSIVE DRUG SCREEN W/O REFLEX 2021-11-23 21:21:00 Williams Virk [facility] CT HEAD WO CONTRAST 2021-11-23 20:58:00 Williams Virk [facility] POCT TEST 2021-11-23 20:46:00 Williams Virk [facility] URINALYSIS 2021-11-23 20:43:00 Williams Virk [facility] LIPASE 2021-11-23 20:27:00 Williams Virk [facility] TROPONIN I 2021-11-23 20:27:00 Williams Virk [facility] COMP. METABOLIC PANEL ([id number]) 2021-11-23 20:27:00 Williams Virk [facility] CBC WITH DIFF 2021-11-23 20:27:00 Williams Virk [facility] POCT GLUCOSE (AUTOMATED) 2021-11-23 20:15:00 Doctor Unassigned, [place] [facility] SARS-COV-2 COVID-19 VACCINE,0.3ML,IM (PFIZER) 2021-05-24 14:23:12 Doctor Unassigned, [place] [facility] SARS-COV-2 COVID-19 VACCINE,0.3ML,IM (PFIZER) 2021-05-03 14:59:29 Doctor Unassigned, [place] [facility] EMERGENCY SERVICES AGREEMENT S AND AUTHORIZATIONS 2021-04-16 05:01:00 Doctor Unassigned, [place] [facility] URINALYSIS 2021-03-17 03:09[facility]00 [facility] X[facility] CHEST 1 VW 2021-03-17 01:45:07 [facility] TROPONIN I 2021-03-17 01:35:00 Palmer [facility] COMP. METABOLIC PANEL ([id number]) 2021-03-17 01:35:00 Fabrice Chakraborty [facility] CBC WITH DIFF 2021-03-17 01:35:00 [facility] N-TERMINAL PRO-BNP 2021-03-17 01:35:00 Palmer [facility] COVID-19 (ID NOW RAPID TESTING) 2021-03-17 00:58:00 Mj Bryan [facility] CONSENT/REFUSAL FOR DIAGNOSI S AND TREATMENT 2021-03-17 00:32:59 Doctor Unassigned, [place] [facility] COVID-19 (ID NOW RAPID TESTING) 2021-02-19 17:04:00 Estefania Monroy [facility] CT ABDOMEN PELVIS W CONTRAST 2021-02-19 16:41:18 Estefania Monroy [facility] LIPASE 2021-02-19 15:58:00 Estefania Monroy [facility] COMP. METABOLIC PANEL ([id number]) 2021-02-19 15:58:00 Estefania Monroy [facility] CBC WITH DIFF 2021-02-19 15:58:00 Estefania Monroy [facility] URINALYSIS 2021-02-19 15:58:00 Estefania Monroy [facility] NOTICE OF PRIVACY PRACTICES 2021-02-19 15:30:46 Doctor Unassigned, [place] [facility] CONSENT/REFUSAL FOR DIAGNOSI S AND TREATMENT 2021-02-19 15:30:30 Doctor Unassigned, [place] [facility] Plan of Care Planned Activity Planned Date Details Comments Source Future Scheduled Test 2025-08-02 00:00:00 Lipid panel (procedure) [code = 19040908] [facility] Future Scheduled Test 2025-08-02 00:00:00 Lipid panel (procedure) [code = 87299783] [facility] Future Scheduled Test 2025-08-02 00:00:00 Lipid panel (procedure) [code = 34844108] [facility] Future Scheduled Test 2025-08-02 00:00:00 Lipid panel (procedure) [code = 30099818] [facility] Future Scheduled Test 2025-08-02 00:00:00 Lipid panel (procedure) [code = 73051371] [facility] Future Scheduled Test 2025-08-02 00:00:00 Lipid panel (procedure) [code = 35116946] [facility] Future Scheduled Test 2025-08-02 00:00:00 Lipid panel (procedure) [code = 06753893] [facility] Future Scheduled Test 2025-08-02 00:00:00 Lipid panel (procedure) [code = 31973039] [facility] Future Scheduled Test 2025-08-02 00:00:00 Lipid panel (procedure) [code = 46357544] [facility] Future Scheduled Test 2025-08-02 00:00:00 Lipid panel (procedure) [code = 03632361] [facility] Future Scheduled Test 2025-08-02 00:00:00 Lipid panel (procedure) [code = 96187724] [facility] Future Scheduled Test 2025-08-02 00:00:00 Lipid panel (procedure) [code = 65507319] [facility] Future Scheduled Test 2025-08-02 00:00:00 Lipid panel (procedure) [code = 32770338] [facility] Future Scheduled Test 2025-08-02 00:00:00 Lipid panel (procedure) [code = 06559448] [facility] Future Scheduled Test 2025-08-02 00:00:00 Lipid panel (procedure) [code = 39670880] [facility] Future Scheduled Test 2025-08-02 00:00:00 Lipid panel (procedure) [code = 11224247] [facility] Future Scheduled Test 2025-08-02 00:00:00 Lipid panel (procedure) [code = 86323159] [facility] Future Scheduled Test 2025-08-02 00:00:00 Lipid panel (procedure) [code = 29549461] [facility] Future Scheduled Test 2025-08-02 00:00:00 Lipid panel (procedure) [code = 94210615] [facility] Future Scheduled Test 2025-08-02 00:00:00 Lipid panel (procedure) [code = 65798778] [facility] Future Scheduled Test 2025-08-02 00:00:00 Lipid panel (procedure) [code = 79192283] [facility] Future Scheduled Test 2025-08-02 00:00:00 Lipid panel (procedure) [code = 30223104] [facility] Future Scheduled Test 2025-08-02 00:00:00 Lipid panel (procedure) [code = 62673876] [facility] Future Scheduled Test 2025-08-02 00:00:00 Lipid panel (procedure) [code = 90319844] [facility] Future Scheduled Test 2025-08-02 00:00:00 Lipid panel (procedure) [code = 86688979] [facility] Future Scheduled Test 2025-08-02 00:00:00 Lipid panel (procedure) [code = 25331266] [facility] Future Scheduled Test 2025-08-02 00:00:00 Lipid panel (procedure) [code = 44755123] [facility] Future Scheduled Test 2025-08-02 00:00:00 Lipid panel (procedure) [code = 91114647] [facility] Future Scheduled Test 2025-08-02 00:00:00 Lipid panel (procedure) [code = 40514176] [facility] Future Scheduled Test 2025-08-02 00:00:00 Lipid panel (procedure) [code = 38381430] [facility] Future Scheduled Test 2025-08-02 00:00:00 Lipid panel (procedure) [code = 54006807] [facility] Future Scheduled Test 2025-08-02 00:00:00 Lipid panel (procedure) [code = 48802452] [facility] Future Scheduled Test 2025-08-02 00:00:00 Lipid panel (procedure) [code = 92284019] [facility] Future Scheduled Test 2025-08-02 00:00:00 Lipid panel (procedure) [code = 94346187] [facility] Future Scheduled Test 2025-08-02 00:00:00 Lipid panel (procedure) [code = 51119246] [facility] Future Scheduled Test 2025-08-02 00:00:00 Lipid panel (procedure) [code = 91036317] [facility] Future Scheduled Test 2025-08-02 00:00:00 Lipid panel (procedure) [code = 11423526] [facility] Future Scheduled Test 2025-08-02 00:00:00 Lipid panel (procedure) [code = 64534643] [facility] Future Scheduled Test 2025-08-02 00:00:00 Lipid panel (procedure) [code = 45573529] [facility] Future Scheduled Test 2025-08-02 00:00:00 Lipid panel (procedure) [code = 39730398] [facility] Future Scheduled Test 2025-08-02 00:00:00 Lipid panel (procedure) [code = 59114302] [facility] Future Scheduled Test 2025-08-02 00:00:00 Lipid panel (procedure) [code = 19766297] [facility] Future Scheduled Test 2025-08-02 00:00:00 Lipid panel (procedure) [code = 17833846] [facility] Future Scheduled Test 2025-08-02 00:00:00 Lipid panel (procedure) [code = 85136913] [facility] Future Scheduled Test 2025-08-02 00:00:00 Lipid panel (procedure) [code = 07016605] [facility] Future Scheduled Test 2025-08-02 00:00:00 Lipid panel (procedure) [code = 56071966] [facility] Future Scheduled Test 2025-08-02 00:00:00 Lipid panel (procedure) [code = 43553773] [facility] Future Scheduled Test 2025-08-02 00:00:00 Lipid panel (procedure) [code = 17140893] [facility] Future Scheduled Test 2025-08-02 00:00:00 Lipid panel (procedure) [code = 08533172] [facility] Future Scheduled Test 2025-08-02 00:00:00 Lipid panel (procedure) [code = 74484066] [facility] Future Scheduled Test 2025-08-02 00:00:00 Lipid panel (procedure) [code = 35089059] [facility] Future Scheduled Test 2025-08-02 00:00:00 Lipid panel (procedure) [code = 37187943] [facility] Future Scheduled Test 2025-08-02 00:00:00 Lipid panel (procedure) [code = 63179262] [facility] Future Scheduled Test 2025-08-02 00:00:00 Lipid panel (procedure) [code = 61553715] [facility] Future Scheduled Test 2025-08-02 00:00:00 Lipid panel (procedure) [code = 75439286] [facility] Future Scheduled Test 2025-08-02 00:00:00 Lipid panel (procedure) [code = 51843607] [facility] Future Scheduled Test 2025-08-02 00:00:00 Lipid panel (procedure) [code = 89323010] [facility] Future Scheduled Test 2025-08-02 00:00:00 Lipid panel (procedure) [code = 96498481] [facility] Future Scheduled Test 2025-08-02 00:00:00 Lipid panel (procedure) [code = 15056373] [facility] Future Scheduled Test 2025-08-02 00:00:00 Lipid panel (procedure) [code = 07884131] [facility] Future Scheduled Test 2025-08-02 00:00:00 Lipid panel (procedure) [code = 23799005] [facility] Future Scheduled Test 2025-08-02 00:00:00 Lipid panel (procedure) [code = 95694500] [facility] Future Scheduled Test 2025-08-02 00:00:00 Lipid panel (procedure) [code = 91641626] [facility] Future Scheduled Test 2025-08-02 00:00:00 Lipid panel (procedure) [code = 69552945] [facility] Future Scheduled Test 2025-08-02 00:00:00 Lipid panel (procedure) [code = 68393979] [facility] Future Scheduled Test 2025-08-02 00:00:00 Lipid panel (procedure) [code = 04284155] [facility] Future Scheduled Test 2025-08-02 00:00:00 Lipid panel (procedure) [code = 16626773] [facility] Future Scheduled Test 2025-08-02 00:00:00 Lipid panel (procedure) [code = 63070084] [facility] Future Scheduled Test 2025-08-02 00:00:00 Lipid panel (procedure) [code = 04726468] [facility] Future Scheduled Test 2025-08-02 00:00:00 Lipid panel (procedure) [code = 06601184] [facility] Future Scheduled Test 2024-05-28 00:00:00 Tobacco Cessation Counseling and Screening (12+) [code = Tobacco Cessation Counseling and Screening (12+)] [facility] Future Scheduled Test 2024-05-28 00:00:00 Tobacco Cessation Counseling and Screening (12+) [code = Tobacco Cessation Counseling and Screening (12+)] [facility] Future Scheduled Test 2024-05-28 00:00:00 Tobacco Cessation Counseling and Screening (12+) [code = Tobacco Cessation Counseling and Screening (12+)] [facility] Future Scheduled Test 2024-05-28 00:00:00 Tobacco Cessation Counseling and Screening (12+) [code = Tobacco Cessation Counseling and Screening (12+)] [facility] Future Scheduled Test 2024-05-28 00:00:00 Tobacco Cessation Counseling and Screening (12+) [code = Tobacco Cessation Counseling and Screening (12+)] [facility] Future Scheduled Test 2024-05-28 00:00:00 Tobacco Cessation Counseling and Screening (12+) [code = Tobacco Cessation Counseling and Screening (12+)] [facility] Future Scheduled Test 2024-05-28 00:00:00 Tobacco Cessation Counseling and Screening (12+) [code = Tobacco Cessation Counseling and Screening (12+)] [facility] Future Scheduled Test 2024-05-28 00:00:00 Tobacco Cessation Counseling and Screening (12+) [code = Tobacco Cessation Counseling and Screening (12+)] [facility] Future Scheduled Test 2024-05-28 00:00:00 Tobacco Cessation Counseling and Screening (12+) [code = Tobacco Cessation Counseling and Screening (12+)] [facility] Future Scheduled Test 2024-05-28 00:00:00 Tobacco Cessation Counseling and Screening (12+) [code = Tobacco Cessation Counseling and Screening (12+)] [facility] Future Scheduled Test 2024-05-28 00:00:00 Tobacco Cessation Counseling and Screening (12+) [code = Tobacco Cessation Counseling and Screening (12+)] [facility] Future Scheduled Test 2024-05-28 00:00:00 Tobacco Cessation Counseling and Screening (12+) [code = Tobacco Cessation Counseling and Screening (12+)] [facility] Future Scheduled Test 2024-05-28 00:00:00 Tobacco Cessation Counseling and Screening (12+) [code = Tobacco Cessation Counseling and Screening (12+)] [facility] Future Scheduled Test 2024-05-28 00:00:00 Tobacco Cessation Counseling and Screening (12+) [code = Tobacco Cessation Counseling and Screening (12+)] [facility] Scheduled Test 2024-05-28 00:00:00 Tobacco Cessation Counseling and Screening (12+) [code = Tobacco Cessation Counseling and Screening (12+)] [facility] Scheduled Test 2024-05-28 00:00:00 Tobacco Cessation Counseling and Screening (12+) [code = Tobacco Cessation Counseling and Screening (12+)] [facility] Scheduled Test 2024-05-28 00:00:00 Tobacco Cessation Counseling and Screening (12+) [code = Tobacco Cessation Counseling and Screening (12+)] [facility] Scheduled Test 2024-05-28 00:00:00 Tobacco Cessation Counseling and Screening (12+) [code = Tobacco Cessation Counseling and Screening (12+)] [facility] Scheduled Test 2024-05-28 00:00:00 Tobacco Cessation Counseling and Screening (12+) [code = Tobacco Cessation Counseling and Screening (12+)] [facility] Scheduled Test 2024-05-28 00:00:00 Tobacco Cessation Counseling and Screening (12+) [code = Tobacco Cessation Counseling and Screening (12+)] [facility] Scheduled Test 2024-05-28 00:00:00 Tobacco Cessation Counseling and Screening (12+) [code = Tobacco Cessation Counseling and Screening (12+)] [facility] Scheduled Test 2024-05-28 00:00:00 Tobacco Cessation Counseling and Screening (12+) [code = Tobacco Cessation Counseling and Screening (12+)] [facility] Scheduled Test 2024-05-28 00:00:00 Tobacco Cessation Counseling and Screening (12+) [code = Tobacco Cessation Counseling and Screening (12+)] [facility] Scheduled Test 2024-05-28 00:00:00 Tobacco Cessation Counseling and Screening (12+) [code = Tobacco Cessation Counseling and Screening (12+)] [facility] Scheduled Test 2024-05-28 00:00:00 Tobacco Cessation Counseling and Screening (12+) [code = Tobacco Cessation Counseling and Screening (12+)] [facility] Scheduled Test 2024-05-28 00:00:00 Tobacco Cessation Counseling and Screening (12+) [code = Tobacco Cessation Counseling and Screening (12+)] [facility] Scheduled Test 2024-05-28 00:00:00 Tobacco Cessation Counseling and Screening (12+) [code = Tobacco Cessation Counseling and Screening (12+)] [facility] Scheduled Test 2024-05-28 00:00:00 Tobacco Cessation Counseling and Screening (12+) [code = Tobacco Cessation Counseling and Screening (12+)] [facility] Scheduled Test 2024-05-28 00:00:00 Tobacco Cessation Counseling and Screening (12+) [code = Tobacco Cessation Counseling and Screening (12+)] [facility] Scheduled Test 2024-05-28 00:00:00 Tobacco Cessation Counseling and Screening (12+) [code = Tobacco Cessation Counseling and Screening (12+)] [facility] Scheduled Test 2024-05-28 00:00:00 Tobacco Cessation Counseling and Screening (12+) [code = Tobacco Cessation Counseling and Screening (12+)] [facility] Scheduled Test 2024-05-28 00:00:00 Tobacco Cessation Counseling and Screening (12+) [code = Tobacco Cessation Counseling and Screening (12+)] [facility] Scheduled Test 2024-05-28 00:00:00 Tobacco Cessation Counseling and Screening (12+) [code = Tobacco Cessation Counseling and Screening (12+)] [facility] Scheduled Test 2024-05-28 00:00:00 Tobacco Cessation Counseling and Screening (12+) [code = Tobacco Cessation Counseling and Screening (12+)] [facility] Scheduled Test 2024-05-28 00:00:00 Tobacco Cessation Counseling and Screening (12+) [code = Tobacco Cessation Counseling and Screening (12+)] [facility] Scheduled Test 2024-05-28 00:00:00 Tobacco Cessation Counseling and Screening (12+) [code = Tobacco Cessation Counseling and Screening (12+)] [facility] Scheduled Test 2024-05-28 00:00:00 Tobacco Cessation Counseling and Screening (12+) [code = Tobacco Cessation Counseling and Screening (12+)] [facility] Future Scheduled Test 2024-05-28 00:00:00 Tobacco Cessation Counseling and Screening (12+) [code = Tobacco Cessation Counseling and Screening (12+)] [facility] Future Scheduled Test 2024-05-28 00:00:00 Tobacco Cessation Counseling and Screening (12+) [code = Tobacco Cessation Counseling and Screening (12+)] [facility] Scheduled Test 2024-05-28 00:00:00 Tobacco Cessation Counseling and Screening (12+) [code = Tobacco Cessation Counseling and Screening (12+)] [facility] Scheduled Test 2024-05-28 00:00:00 Tobacco Cessation Counseling and Screening (12+) [code = Tobacco Cessation Counseling and Screening (12+)] [facility] Scheduled Test 2024-05-28 00:00:00 Tobacco Cessation Counseling and Screening (12+) [code = Tobacco Cessation Counseling and Screening (12+)] [facility] Scheduled Test 2024-05-28 00:00:00 Tobacco Cessation Counseling and Screening (12+) [code = Tobacco Cessation Counseling and Screening (12+)] [facility] Scheduled Test 2024-05-28 00:00:00 Tobacco Cessation Counseling and Screening (12+) [code = Tobacco Cessation Counseling and Screening (12+)] [facility] Scheduled Test 2024-05-28 00:00:00 Tobacco Cessation Counseling and Screening (12+) [code = Tobacco Cessation Counseling and Screening (12+)] [facility] Future Scheduled Test 2024-05-26 00:00:00 Tobacco Cessation Counseling and Screening (12+) [code = Tobacco Cessation Counseling and Screening (12+)] [facility] Future Scheduled Test 2024-05-26 00:00:00 Tobacco Cessation Counseling and Screening (12+) [code = Tobacco Cessation Counseling and Screening (12+)] [facility] Scheduled Test 2024-03-20 00:00:00 Influenza Vaccine (Season Ended) [code = Influenza Vaccine (Season Ended)] [facility] Future Scheduled Test 2024-03-20 00:00:00 Influenza Vaccine (Season Ended) [code = Influenza Vaccine (Season Ended)] [facility] Scheduled Test 2024-03-20 00:00:00 Influenza Vaccine (Season Ended) [code = Influenza Vaccine (Season Ended)] [facility] Future Scheduled Test 2024-03-20 00:00:00 Influenza Vaccine (Season Ended) [code = Influenza Vaccine (Season Ended)] [facility] Future Scheduled Test 2024-03-20 00:00:00 Influenza Vaccine (Season Ended) [code = Influenza Vaccine (Season Ended)] [facility] Future Scheduled Test 2024-03-20 00:00:00 Influenza Vaccine (Season Ended) [code = Influenza Vaccine (Season Ended)] [facility] Future Scheduled Test 2024-03-20 00:00:00 Influenza Vaccine (Season Ended) [code = Influenza Vaccine (Season Ended)] [facility] Future Scheduled Test 2024-03-20 00:00:00 Influenza Vaccine (Season Ended) [code = Influenza Vaccine (Season Ended)] [facility] Future Scheduled Test 2024-03-20 00:00:00 Influenza Vaccine (Season Ended) [code = Influenza Vaccine (Season Ended)] [facility] Future Scheduled Test 2024-03-20 00:00:00 Influenza Vaccine (Season Ended) [code = Influenza Vaccine (Season Ended)] [facility] Future Scheduled Test 2023-07-20 00:00:00 DEPRESSION SCREENING (12+) [code = DEPRESSION SCREENING (12+)] [facility] Future Scheduled Test 2023-07-20 00:00:00 DEPRESSION SCREENING (12+) [code = DEPRESSION SCREENING (12+)] [facility] Future Scheduled Test 2023-07-20 00:00:00 DEPRESSION SCREENING (12+) [code = DEPRESSION SCREENING (12+)] [facility] Future Scheduled Test 2023-07-20 00:00:00 DEPRESSION SCREENING (12+) [code = DEPRESSION SCREENING (12+)] [facility] Future Scheduled Test 2023-07-20 00:00:00 DEPRESSION SCREENING (12+) [code = DEPRESSION SCREENING (12+)] [facility] Future Scheduled Test 2023-07-20 00:00:00 DEPRESSION SCREENING (12+) [code = DEPRESSION SCREENING (12+)] [facility] Future Scheduled Test 2023-07-20 00:00:00 DEPRESSION SCREENING (12+) [code = DEPRESSION SCREENING (12+)] [facility] Future Scheduled Test 2023-07-20 00:00:00 DEPRESSION SCREENING (12+) [code = DEPRESSION SCREENING (12+)] [facility] Future Scheduled Test 2023-07-20 00:00:00 DEPRESSION SCREENING (12+) [code = DEPRESSION SCREENING (12+)] [facility] Future Scheduled Test 2023-07-20 00:00:00 DEPRESSION SCREENING (12+) [code = DEPRESSION SCREENING (12+)] [facility] Future Scheduled Test 2023-07-20 00:00:00 DEPRESSION SCREENING (12+) [code = DEPRESSION SCREENING (12+)] [facility] Future Scheduled Test 2023-07-20 00:00:00 DEPRESSION SCREENING (12+) [code = DEPRESSION SCREENING (12+)] [facility] Future Scheduled Test 2023-07-20 00:00:00 DEPRESSION SCREENING (12+) [code = DEPRESSION SCREENING (12+)] [facility] [facility] Scheduled [facility] 2023-07-20 00:00:00 DEPRESSION SCREENING (12+) [code = DEPRESSION SCREENING (12+)] [facility] Future Scheduled Test 2023-07-20 00:00:00 DEPRESSION SCREENING (12+) [code = DEPRESSION SCREENING (12+)] [facility] Future Scheduled Test 2023-07-20 00:00:00 DEPRESSION SCREENING (12+) [code = DEPRESSION SCREENING (12+)] [facility] Future Scheduled Test 2023-07-20 00:00:00 DEPRESSION SCREENING (12+) [code = DEPRESSION SCREENING (12+)] [facility] Future Scheduled Test 2023-07-20 00:00:00 DEPRESSION SCREENING (12+) [code = DEPRESSION SCREENING (12+)] [facility] Future Scheduled Test 2023-07-20 00:00:00 DEPRESSION SCREENING (12+) [code = DEPRESSION SCREENING (12+)] [facility] Future Scheduled Test 2023-07-20 00:00:00 DEPRESSION SCREENING (12+) [code = DEPRESSION SCREENING (12+)] [facility] Future Scheduled Test 2023-07-20 00:00:00 DEPRESSION SCREENING (12+) [code = DEPRESSION SCREENING (12+)] [facility] Future Scheduled Test 2023-07-20 00:00:00 DEPRESSION SCREENING (12+) [code = DEPRESSION SCREENING (12+)] [facility] Future Scheduled Test 2023-07-20 00:00:00 DEPRESSION SCREENING (12+) [code = DEPRESSION SCREENING (12+)] [facility] Future Scheduled Test 2023-07-20 00:00:00 DEPRESSION SCREENING (12+) [code = DEPRESSION SCREENING (12+)] [facility] Future Scheduled Test 2023-07-20 00:00:00 DEPRESSION SCREENING (12+) [code = DEPRESSION SCREENING (12+)] [facility] Future Scheduled Test 2023-07-20 00:00:00 DEPRESSION SCREENING (12+) [code = DEPRESSION SCREENING (12+)] [facility] Future Scheduled Test 2023-07-20 00:00:00 DEPRESSION SCREENING (12+) [code = DEPRESSION SCREENING (12+)] [facility] Future Scheduled Test 2023-07-20 00:00:00 DEPRESSION SCREENING (12+) [code = DEPRESSION SCREENING (12+)] [facility] Future Scheduled Test 2023-07-20 00:00:00 DEPRESSION SCREENING (12+) [code = DEPRESSION SCREENING (12+)] [facility] Future Scheduled Test 2023-07-20 00:00:00 DEPRESSION SCREENING (12+) [code = DEPRESSION SCREENING (12+)] [facility] Future Scheduled Test 2023-07-20 00:00:00 DEPRESSION SCREENING (12+) [code = DEPRESSION SCREENING (12+)] [facility] Future Scheduled Test 2023-07-20 00:00:00 DEPRESSION SCREENING (12+) [code = DEPRESSION SCREENING (12+)] [facility] Future Scheduled Test 2023-07-20 00:00:00 DEPRESSION SCREENING (12+) [code = DEPRESSION SCREENING (12+)] [facility] Future Scheduled Test 2023-07-20 00:00:00 DEPRESSION SCREENING (12+) [code = DEPRESSION SCREENING (12+)] [facility] Future Scheduled Test 2023-07-20 00:00:00 DEPRESSION SCREENING (12+) [code = DEPRESSION SCREENING (12+)] [facility] Future Scheduled Test 2023-07-20 00:00:00 DEPRESSION SCREENING (12+) [code = DEPRESSION SCREENING (12+)] [facility] Future Scheduled Test 2023-07-20 00:00:00 DEPRESSION SCREENING (12+) [code = DEPRESSION SCREENING (12+)] [facility] Future Scheduled Test 2023-03-20 00:00:00 INFLUENZA VACCINE (Season Ended) [code = INFLUENZA VACCINE (Season Ended)] [facility] Future Scheduled Test 2023-03-20 00:00:00 INFLUENZA VACCINE (Season Ended) [code = INFLUENZA VACCINE (Season Ended)] [facility] Future Scheduled Test 2023-03-20 00:00:00 INFLUENZA VACCINE (Season Ended) [code = INFLUENZA VACCINE (Season Ended)] [facility] Future Scheduled Test 2023-03-20 00:00:00 INFLUENZA VACCINE (Season Ended) [code = INFLUENZA VACCINE (Season Ended)] [facility] Future Scheduled Test 2023-03-20 00:00:00 INFLUENZA VACCINE (Season Ended) [code = INFLUENZA VACCINE (Season Ended)] [facility] Future Scheduled Test 2023-03-20 00:00:00 INFLUENZA VACCINE (Season Ended) [code = INFLUENZA VACCINE (Season Ended)] [facility] Future Scheduled Test 2023-03-20 00:00:00 Influenza Vaccine (Season Ended) [code = Influenza Vaccine (Season Ended)] [facility] Future Scheduled Test 2023-03-20 00:00:00 Influenza Vaccine (Season Ended) [code = Influenza Vaccine (Season Ended)] [facility] Future Scheduled Test 2023-03-20 00:00:00 Influenza Vaccine (#1) [code = Influenza Vaccine (#1)] [facility] Future Scheduled Test 2023-03-20 00:00:00 Influenza Vaccine (#1) [code = Influenza Vaccine (#1)] [facility] Future Scheduled Test 2023-03-20 00:00:00 Influenza Vaccine (#1) [code = Influenza Vaccine (#1)] [facility] Future Scheduled Test 2023-03-20 00:00:00 Influenza Vaccine (#1) [code = Influenza Vaccine (#1)] [facility] Future Scheduled Test 2023-03-20 00:00:00 COVID-19 VACCINE ( season) [code = COVID-19 VACCINE ( season)] [facility] Future Scheduled Test 2023-03-20 00:00:00 Influenza Vaccine (#1) [code = Influenza Vaccine (#1)] [facility] Future Scheduled Test 2023-03-20 00:00:00 COVID-19 VACCINE ( season) [code = COVID-19 VACCINE ()] [facility] Future Scheduled Test 2023-03-20 00:00:00 Influenza Vaccine (#1) [code = Influenza Vaccine (#1)] [facility] Future Scheduled Test 2023-03-20 00:00:00 COVID-19 VACCINE () [code = COVID-19 VACCINE ()] [facility] Future Scheduled Test 2023-03-20 00:00:00 Influenza Vaccine (#1) [code = Influenza Vaccine (#1)] [facility] Future Scheduled Test 2023-03-20 00:00:00 COVID-19 VACCINE ( season) [code = COVID-19 VACCINE ()] [facility] Future Scheduled Test 2023-03-20 00:00:00 Influenza Vaccine (#1) [code = Influenza Vaccine (#1)] [facility] Future Scheduled Test 2023-03-20 00:00:00 Influenza Vaccine (#1) [code = Influenza Vaccine (#1)] [facility] Future Scheduled Test 2023-03-20 00:00:00 COVID-19 VACCINE ( season) [code = COVID-19 VACCINE ()] [facility] Future Scheduled Test 2023-03-20 00:00:00 Influenza Vaccine (#1) [code = Influenza Vaccine (#1)] [facility] Future Scheduled Test 2023-03-20 00:00:00 COVID-19 VACCINE ( season) [code = COVID-19 VACCINE ( season)] [facility] Future Scheduled Test 2023-03-20 00:00:00 Influenza Vaccine (#1) [code = Influenza Vaccine (#1)] [facility] Future Scheduled Test 2023-03-20 00:00:00 COVID-19 VACCINE ( season) [code = COVID-19 VACCINE ()] [facility] Future Scheduled Test 2023-03-20 00:00:00 Influenza Vaccine (#1) [code = Influenza Vaccine (#1)] [facility] Future Scheduled Test 2023-03-20 00:00:00 COVID-19 VACCINE () [code = COVID-19 VACCINE ()] [facility] Future Scheduled Test 2023-03-20 00:00:00 Influenza Vaccine (#1) [code = Influenza Vaccine (#1)] [facility] Future Scheduled Test 2023-03-20 00:00:00 COVID-19 VACCINE () [code = COVID-19 VACCINE ()] [facility] Future Scheduled Test 2023-03-20 00:00:00 Influenza Vaccine (#1) [code = Influenza Vaccine (#1)] [facility] Future Scheduled Test 2023-03-20 00:00:00 COVID-19 VACCINE ( season) [code = COVID-19 VACCINE ()] [facility] Future Scheduled Test 2023-03-20 00:00:00 Influenza Vaccine (#1) [code = Influenza Vaccine (#1)] [facility] Future Scheduled Test 2023-03-20 00:00:00 COVID-19 VACCINE () [code = COVID-19 VACCINE ()] [facility] Future Scheduled Test 2023-03-20 00:00:00 Influenza Vaccine (#1) [code = Influenza Vaccine (#1)] [facility] Future Scheduled Test 2023-03-20 00:00:00 Influenza Vaccine (#1) [code = Influenza Vaccine (#1)] [facility] Future Scheduled Test 2023-03-20 00:00:00 COVID-19 VACCINE ( season) [code = COVID-19 VACCINE ()] [facility] Future Scheduled Test 2023-03-20 00:00:00 Influenza Vaccine (#1) [code = Influenza Vaccine (#1)] [facility] Future Scheduled Test 2023-03-20 00:00:00 COVID-19 VACCINE () [code = COVID-19 VACCINE ()] [facility] Future Scheduled Test 2023-03-20 00:00:00 Influenza Vaccine (#1) [code = Influenza Vaccine (#1)] [facility] Future Scheduled Test 2023-03-20 00:00:00 COVID-19 VACCINE ( season) [code = COVID-19 VACCINE ()] [facility] Future Scheduled Test 2023-03-20 00:00:00 Influenza Vaccine (#1) [code = Influenza Vaccine (#1)] [facility] Future Scheduled Test 2023-03-20 00:00:00 COVID-19 VACCINE ( season) [code = COVID-19 VACCINE ( season)] [facility] Future Scheduled Test 2023-03-20 00:00:00 Influenza Vaccine (#1) [code = Influenza Vaccine (#1)] [facility] Future Scheduled Test 2023-03-20 00:00:00 COVID-19 VACCINE ( season) [code = COVID-19 VACCINE ()] [facility] Future Scheduled Test 2023-03-20 00:00:00 Influenza Vaccine (#1) [code = Influenza Vaccine (#1)] [facility] Future Scheduled Test 2023-03-20 00:00:00 COVID-19 VACCINE ( season) [code = COVID-19 VACCINE ( season)] [facility] Future Scheduled Test 2023-03-20 00:00:00 Influenza Vaccine (#1) [code = Influenza Vaccine (#1)] [facility] Future Scheduled Test 2023-03-20 00:00:00 Influenza Vaccine (#1) [code = Influenza Vaccine (#1)] [facility] Future Scheduled Test 2023-03-20 00:00:00 COVID-19 VACCINE ( season) [code = COVID-19 VACCINE ()] [facility] Future Scheduled Test 2023-03-20 00:00:00 Influenza Vaccine (#1) [code = Influenza Vaccine (#1)] [facility] Future Scheduled Test 2023-03-20 00:00:00 COVID-19 VACCINE ( season) [code = COVID-19 VACCINE ()] [facility] Future Scheduled Test 2023-03-20 00:00:00 Influenza Vaccine (#1) [code = Influenza Vaccine (#1)] [facility] Future Scheduled Test 2023-03-20 00:00:00 COVID-19 VACCINE ( season) [code = COVID-19 VACCINE ()] [facility] Future Scheduled Test 2023-03-20 00:00:00 Influenza Vaccine (#1) [code = Influenza Vaccine (#1)] [facility] Future Scheduled Test 2023-03-20 00:00:00 COVID-19 VACCINE ( season) [code = COVID-19 VACCINE ( season)] [facility] Future Scheduled Test 2023-03-20 00:00:00 Influenza Vaccine (#1) [code = Influenza Vaccine (#1)] [facility] Future Scheduled Test 2023-03-20 00:00:00 Influenza Vaccine (#1) [code = Influenza Vaccine (#1)] [facility] Future Scheduled Test 2023-03-20 00:00:00 COVID-19 VACCINE ( season) [code = COVID-19 VACCINE ()] [facility] Future Scheduled Test 2023-03-20 00:00:00 Influenza Vaccine (#1) [code = Influenza Vaccine (#1)] [facility] Future Scheduled Test 2023-03-20 00:00:00 COVID-19 VACCINE ( season) [code = COVID-19 VACCINE ()] [facility] Future Scheduled Test 2023-03-20 00:00:00 Influenza Vaccine (#1) [code = Influenza Vaccine (#1)] [facility] Future Scheduled Test 2023-03-20 00:00:00 COVID-19 VACCINE () [code = COVID-19 VACCINE ()] [facility] Future Scheduled Test 2023-03-20 00:00:00 Influenza Vaccine (#1) [code = Influenza Vaccine (#1)] [facility] Future Scheduled Test 2023-03-20 00:00:00 COVID-19 VACCINE () [code = COVID-19 VACCINE ()] [facility] Future Scheduled Test 2023-03-20 00:00:00 Influenza Vaccine (#1) [code = Influenza Vaccine (#1)] [facility] Future Scheduled Test 2023-03-20 00:00:00 COVID-19 VACCINE ( season) [code = COVID-19 VACCINE ( season)] [facility] Future Scheduled Test 2023-03-20 00:00:00 Influenza Vaccine (#1) [code = Influenza Vaccine (#1)] [facility] Future Scheduled Test 2023-03-20 00:00:00 COVID-19 VACCINE ( season) [code = COVID-19 VACCINE ( season)] [facility] Future Scheduled Test 2023-03-20 00:00:00 Influenza Vaccine (#1) [code = Influenza Vaccine (#1)] [facility] Future Scheduled Test 2023-03-20 00:00:00 Influenza Vaccine (#1) [code = Influenza Vaccine (#1)] [facility] Future Scheduled Test 2023-03-20 00:00:00 COVID-19 VACCINE ( season) [code = COVID-19 VACCINE ()] [facility] Future Scheduled Test 2023-03-20 00:00:00 Influenza Vaccine (#1) [code = Influenza Vaccine (#1)] [facility] Future Scheduled Test 2023-03-20 00:00:00 COVID-19 VACCINE ( season) [code = COVID-19 VACCINE ()] [facility] Future Scheduled Test 2023-03-20 00:00:00 Influenza Vaccine (#1) [code = Influenza Vaccine (#1)] [facility] Future Scheduled Test 2023-03-20 00:00:00 COVID-19 VACCINE () [code = COVID-19 VACCINE ()] [facility] Future Scheduled Test 2023-03-20 00:00:00 COVID-19 VACCINE () [code = COVID-19 VACCINE ()] [facility] Future Scheduled Test 2023-03-20 00:00:00 COVID-19 VACCINE ( season) [code = COVID-19 VACCINE ()] [facility] Future Scheduled Test 2023-03-20 00:00:00 COVID-19 VACCINE () [code = COVID-19 VACCINE ()] [facility] Future Scheduled Test 2023-03-20 00:00:00 COVID-19 VACCINE ( season) [code = COVID-19 VACCINE ()] [facility] Future Scheduled Test 2023-03-20 00:00:00 COVID-19 VACCINE ( season) [code = COVID-19 VACCINE ()] [facility] Future Scheduled Test 2023-03-20 00:00:00 Influenza Vaccine (#1) [code = Influenza Vaccine (#1)] [facility] Future Scheduled Test 2023-03-20 00:00:00 COVID-19 VACCINE ( season) [code = COVID-19 VACCINE ()] [facility] Future Scheduled Test 2023-03-20 00:00:00 COVID-19 VACCINE () [code = COVID-19 VACCINE ()] [facility] Future Scheduled Test 2023-03-20 00:00:00 COVID-19 VACCINE ( season) [code = COVID-19 VACCINE ()] [facility] Future Scheduled Test 2023-03-20 00:00:00 COVID-19 VACCINE ( season) [code = COVID-19 VACCINE ()] [facility] Future Scheduled Test 2023-03-20 00:00:00 Influenza Vaccine (#1) [code = Influenza Vaccine (#1)] [facility] Future Scheduled Test 2023-03-20 00:00:00 Influenza Vaccine (#1) [code = Influenza Vaccine (#1)] [facility] Future Scheduled Test 2023-03-20 00:00:00 Influenza Vaccine (#1) [code = Influenza Vaccine (#1)] [facility] Future Scheduled Test 2023-03-20 00:00:00 Influenza Vaccine (#1) [code = Influenza Vaccine (#1)] [facility] Future Scheduled Test 2023-03-20 00:00:00 Influenza Vaccine (#1) [code = Influenza Vaccine (#1)] [facility] Future Scheduled Test 2023-03-20 00:00:00 Influenza Vaccine (#1) [code = Influenza Vaccine (#1)] [facility] Future Scheduled Test 2023-03-20 00:00:00 Influenza Vaccine (#1) [code = Influenza Vaccine (#1)] [facility] Future Scheduled Test 2023-03-20 00:00:00 Influenza Vaccine (#1) [code = Influenza Vaccine (#1)] [facility] Future Scheduled Test 2023-03-20 00:00:00 Influenza Vaccine (#1) [code = Influenza Vaccine (#1)] [facility] Future Scheduled Test 2023-03-20 00:00:00 COVID-19 VACCINE ( season) [code = COVID-19 VACCINE ( season)] [facility] Future Scheduled Test 2022-07-20 00:00:00 DEPRESSION SCREENING (12+) [code = DEPRESSION SCREENING (12+)] [facility] Future Scheduled Test 2022-07-20 00:00:00 DEPRESSION SCREENING (12+) [code = DEPRESSION SCREENING (12+)] [facility] Future Scheduled Test 2022-07-20 00:00:00 DEPRESSION SCREENING (12+) [code = DEPRESSION SCREENING (12+)] [facility] Future Scheduled Test 2022-07-20 00:00:00 DEPRESSION SCREENING (12+) [code = DEPRESSION SCREENING (12+)] [facility] Future Scheduled Test 2022-07-20 00:00:00 DEPRESSION SCREENING (12+) [code = DEPRESSION SCREENING (12+)] [facility] Future Scheduled Test 2022-07-20 00:00:00 DEPRESSION SCREENING (12+) [code = DEPRESSION SCREENING (12+)] [facility] Future Scheduled Test 2022-07-20 00:00:00 DEPRESSION SCREENING (12+) [code = DEPRESSION SCREENING (12+)] [facility] Future Scheduled Test 2022-07-20 00:00:00 DEPRESSION SCREENING (12+) [code = DEPRESSION SCREENING (12+)] [facility] Future Scheduled Test 2022-07-20 00:00:00 DEPRESSION SCREENING (12+) [code = DEPRESSION SCREENING (12+)] [facility] Future Scheduled Test 2022-07-20 00:00:00 DEPRESSION SCREENING (12+) [code = DEPRESSION SCREENING (12+)] [facility] Future Scheduled Test 2022-07-20 00:00:00 DEPRESSION SCREENING (12+) [code = DEPRESSION SCREENING (12+)] [facility] Future Scheduled Test 2022-07-20 00:00:00 DEPRESSION SCREENING (12+) [code = DEPRESSION SCREENING (12+)] [facility] Future Scheduled Test 2022-07-20 00:00:00 DEPRESSION SCREENING (12+) [code = DEPRESSION SCREENING (12+)] [facility] Future Scheduled Test 2022-07-20 00:00:00 DEPRESSION SCREENING (12+) [code = DEPRESSION SCREENING (12+)] [facility] Future Scheduled Test 2022-07-20 00:00:00 DEPRESSION SCREENING (12+) [code = DEPRESSION SCREENING (12+)] [facility] Future Scheduled Test 2022-07-20 00:00:00 DEPRESSION SCREENING (12+) [code = DEPRESSION SCREENING (12+)] [facility] Future Scheduled Test 2022-07-20 00:00:00 DEPRESSION SCREENING (12+) [code = DEPRESSION SCREENING (12+)] [facility] Future Scheduled Test 2022-07-20 00:00:00 DEPRESSION SCREENING (12+) [code = DEPRESSION SCREENING (12+)] [facility] Future Scheduled Test 2022-07-20 00:00:00 DEPRESSION SCREENING (12+) [code = DEPRESSION SCREENING (12+)] [facility] Future Scheduled Test 2022-07-20 00:00:00 DEPRESSION SCREENING (12+) [code = DEPRESSION SCREENING (12+)] [facility] Future Scheduled Test 2022-07-20 00:00:00 DEPRESSION SCREENING (12+) [code = DEPRESSION SCREENING (12+)] [facility] Future Scheduled Test 2022-07-20 00:00:00 DEPRESSION SCREENING (12+) [code = DEPRESSION SCREENING (12+)] [facility] Future Scheduled Test 2022-07-20 00:00:00 DEPRESSION SCREENING (12+) [code = DEPRESSION SCREENING (12+)] [facility] Future Scheduled Test 2022-07-20 00:00:00 DEPRESSION SCREENING (12+) [code = DEPRESSION SCREENING (12+)] [facility] Future Scheduled Test 2022-07-20 00:00:00 DEPRESSION SCREENING (12+) [code = DEPRESSION SCREENING (12+)] [facility] Future Scheduled Test 2022-07-20 00:00:00 DEPRESSION SCREENING (12+) [code = DEPRESSION SCREENING (12+)] [facility] Future Scheduled Test 2022-07-20 00:00:00 DEPRESSION SCREENING (12+) [code = DEPRESSION SCREENING (12+)] [facility] Future Scheduled Test 2022-07-20 00:00:00 DEPRESSION SCREENING (12+) [code = DEPRESSION SCREENING (12+)] [facility] Future Scheduled Test 2022-07-20 00:00:00 DEPRESSION SCREENING (12+) [code = DEPRESSION SCREENING (12+)] [facility] Future Scheduled Test 2022-07-20 00:00:00 DEPRESSION SCREENING (12+) [code = DEPRESSION SCREENING (12+)] [facility] Future Scheduled Test 2022-07-20 00:00:00 DEPRESSION SCREENING (12+) [code = DEPRESSION SCREENING (12+)] [facility] Future Scheduled Test 2022-07-20 00:00:00 DEPRESSION SCREENING (12+) [code = DEPRESSION SCREENING (12+)] [facility] Future Scheduled Test 2022-07-20 00:00:00 DEPRESSION SCREENING (12+) [code = DEPRESSION SCREENING (12+)] [facility] Future Scheduled Test 2022-06-21 00:00:00 COVID-19 VACCINE (4 - Booster for Pfizer series) [code = COVID-19 VACCINE (4 - Booster for Pfizer series)] [facility] Future Scheduled Test 2022-06-21 00:00:00 COVID-19 VACCINE (4 - Booster for Pfizer series) [code = COVID-19 VACCINE (4 - Booster for Pfizer series)] [facility] Future Scheduled Test 2022-06-21 00:00:00 COVID-19 VACCINE (4 - Booster for Pfizer series) [code = COVID-19 VACCINE (4 - Booster for Pfizer series)] [facility] Future Scheduled Test 2022-06-21 00:00:00 COVID-19 VACCINE (4 - Booster for Pfizer series) [code = COVID-19 VACCINE (4 - Booster for Pfizer series)] [facility] Future Scheduled Test 2022-04-16 00:00:00 COVID-19 VACCINE (4 - Booster for Pfizer series) [code = COVID-19 VACCINE (4 - Booster for Pfizer series)] [facility] Future Scheduled Test 2022-04-16 00:00:00 COVID-19 VACCINE (4 - Booster for Pfizer series) [code = COVID-19 VACCINE (4 - Booster for Pfizer series)] [facility] Future Scheduled Test 2022-04-16 00:00:00 COVID-19 VACCINE (4 - Booster for Pfizer series) [code = COVID-19 VACCINE (4 - Booster for Pfizer series)] [facility] Future Scheduled Test 2022-04-16 00:00:00 COVID-19 VACCINE (4 - Booster for Pfizer series) [code = COVID-19 VACCINE (4 - Booster for Pfizer series)] [facility] Future Scheduled Test 2022-04-16 00:00:00 COVID-19 VACCINE (4 - Booster for Pfizer series) [code = COVID-19 VACCINE (4 - Booster for Pfizer series)] [facility] Future Scheduled Test 2022-04-16 00:00:00 COVID-19 VACCINE (4 - Booster for Pfizer series) [code = COVID-19 VACCINE (4 - Booster for Pfizer series)] [facility] Future Scheduled Test 2022-04-16 00:00:00 COVID-19 VACCINE (4 - Booster for Pfizer series) [code = COVID-19 VACCINE (4 - Booster for Pfizer series)] [facility] Future Scheduled Test 2022-04-16 00:00:00 COVID-19 VACCINE (4 - Booster for Pfizer series) [code = COVID-19 VACCINE (4 - Booster for Pfizer series)] [facility] Future Scheduled Test 2022-04-16 00:00:00 COVID-19 VACCINE (4 - Booster for Pfizer series) [code = COVID-19 VACCINE (4 - Booster for Pfizer series)] [facility] Future Scheduled Test 2022-04-16 00:00:00 COVID-19 VACCINE (4 - Booster for Pfizer series) [code = COVID-19 VACCINE (4 - Booster for Pfizer series)] [facility] Future Scheduled Test 2022-04-16 00:00:00 COVID-19 VACCINE (4 - Booster for Pfizer series) [code = COVID-19 VACCINE (4 - Booster for Pfizer series)] [facility] Future Scheduled Test 2022-04-16 00:00:00 COVID-19 VACCINE (4 - Booster for Pfizer series) [code = COVID-19 VACCINE (4 - Booster for Pfizer series)] [facility] Future Scheduled Test 2022-04-16 00:00:00 COVID-19 VACCINE (4 - Booster for Pfizer series) [code = COVID-19 VACCINE (4 - Booster for Pfizer series)] [facility] Future Scheduled Test 2022-04-16 00:00:00 COVID-19 VACCINE (4 - Booster for Pfizer series) [code = COVID-19 VACCINE (4 - Booster for Pfizer series)] [facility] Future Scheduled Test 2022-04-16 00:00:00 COVID-19 VACCINE (4 - Booster for Pfizer series) [code = COVID-19 VACCINE (4 - Booster for Pfizer series)] [facility] Future Scheduled Test 2022-04-16 00:00:00 COVID-19 VACCINE (4 - Booster for Pfizer series) [code = COVID-19 VACCINE (4 - Booster for Pfizer series)] [facility] Future Scheduled Test 2022-04-16 00:00:00 COVID-19 VACCINE (4 - Booster for Pfizer series) [code = COVID-19 VACCINE (4 - Booster for Pfizer series)] [facility] Future Scheduled Test 2022-04-16 00:00:00 COVID-19 VACCINE (4 - Booster for Pfizer series) [code = COVID-19 VACCINE (4 - Booster for Pfizer series)] [facility] Future Scheduled Test 2022-04-16 00:00:00 COVID-19 VACCINE (4 - Booster for Pfizer series) [code = COVID-19 VACCINE (4 - Booster for Pfizer series)] [facility] Future Scheduled Test 2022-04-16 00:00:00 COVID-19 VACCINE (4 - Booster for Pfizer series) [code = COVID-19 VACCINE (4 - Booster for Pfizer series)] [facility] Future Scheduled Test 2022-04-16 00:00:00 COVID-19 VACCINE (4 - Pfizer series) [code = COVID-19 VACCINE (4 - Pfizer series)] [facility] Future Scheduled Test 2022-04-16 00:00:00 COVID-19 VACCINE (4 - Pfizer series) [code = COVID-19 VACCINE (4 - Pfizer series)] [facility] Future Scheduled Test 2022-04-16 00:00:00 COVID-19 VACCINE (4 - Pfizer series) [code = COVID-19 VACCINE (4 - Pfizer series)] [facility] Future Scheduled Test 2022-04-16 00:00:00 COVID-19 VACCINE (4 - Pfizer series) [code = COVID-19 VACCINE (4 - Pfizer series)] [facility] Future Scheduled Test 2022-04-16 00:00:00 COVID-19 VACCINE (4 - Booster for Pfizer series) [code = COVID-19 VACCINE (4 - Booster for Pfizer series)] [facility] Future Scheduled Test 2022-04-16 00:00:00 COVID-19 VACCINE (4 - Pfizer series) [code = COVID-19 VACCINE (4 - Pfizer series)] [facility] Future Scheduled Test 2022-03-20 00:00:00 INFLUENZA VACCINE (#1) [code = INFLUENZA VACCINE (#1)] [facility] Future Scheduled Test 2022-03-20 00:00:00 INFLUENZA VACCINE (#1) [code = INFLUENZA VACCINE (#1)] [facility] Future Scheduled Test 2022-03-20 00:00:00 INFLUENZA VACCINE (#1) [code = INFLUENZA VACCINE (#1)] [facility] Future Scheduled Test 2022-03-20 00:00:00 INFLUENZA VACCINE (#1) [code = INFLUENZA VACCINE (#1)] [facility] Future Scheduled Test 2022-01-14 00:00:00 SHINGLES VACCINES (1 of 2) [code = SHINGLES VACCINES (1 of 2)] [facility] Future Scheduled Test 2022-01-14 00:00:00 SHINGLES VACCINES (1 of 2) [code = SHINGLES VACCINES (1 of 2)] [facility] Future Scheduled Test 2022-01-14 00:00:00 SHINGLES VACCINES (1 of 2) [code = SHINGLES VACCINES (1 of 2)] [facility] Future Scheduled Test 2022-01-14 00:00:00 SHINGLES VACCINES (1 of 2) [code = SHINGLES VACCINES (1 of 2)] [facility] Future Scheduled Test 2022-01-14 00:00:00 SHINGLES VACCINES (1 of 2) [code = SHINGLES VACCINES (1 of 2)] [facility] Future Scheduled Test 2022-01-14 00:00:00 SHINGLES VACCINES (1 of 2) [code = SHINGLES VACCINES (1 of 2)] [facility] Future Scheduled Test 2022-01-14 00:00:00 SHINGLES VACCINES (1 of 2) [code = SHINGLES VACCINES (1 of 2)] [facility] Future Scheduled Test 2022-01-14 00:00:00 SHINGLES VACCINES (1 of 2) [code = SHINGLES VACCINES (1 of 2)] [facility] Future Scheduled Test 2022-01-14 00:00:00 SHINGLES VACCINES (1 of 2) [code = SHINGLES VACCINES (1 of 2)] [facility] Future Scheduled Test 2022-01-14 00:00:00 SHINGLES VACCINES (1 of 2) [code = SHINGLES VACCINES (1 of 2)] [facility] Future Scheduled Test 2022-01-14 00:00:00 SHINGLES VACCINES (1 of 2) [code = SHINGLES VACCINES (1 of 2)] [facility] Future Scheduled Test 2022-01-14 00:00:00 SHINGLES VACCINES (1 of 2) [code = SHINGLES VACCINES (1 of 2)] [facility] Future Scheduled Test 2022-01-14 00:00:00 SHINGLES VACCINES (1 of 2) [code = SHINGLES VACCINES (1 of 2)] [facility] Future Scheduled Test 2022-01-14 00:00:00 SHINGLES VACCINES (1 of 2) [code = SHINGLES VACCINES (1 of 2)] [facility] Future Scheduled Test 2022-01-14 00:00:00 SHINGLES VACCINES (1 of 2) [code = SHINGLES VACCINES (1 of 2)] [facility] Future Scheduled Test 2022-01-14 00:00:00 Screening for malignant neoplasm of lung (procedure) [code = [id number]] [facility] Future Scheduled Test 2022-01-14 00:00:00 SHINGLES VACCINES (1 of 2) [code = SHINGLES VACCINES (1 of 2)] [facility] Future Scheduled Test 2022-01-14 00:00:00 Screening for malignant neoplasm of lung (procedure) [code = [id number]] [facility] Future Scheduled Test 2022-01-14 00:00:00 SHINGLES VACCINES (1 of 2) [code = SHINGLES VACCINES (1 of 2)] [facility] Future Scheduled Test 2022-01-14 00:00:00 Screening for malignant neoplasm of lung (procedure) [code = 848078367] [facility] Future Scheduled Test 2022-01-14 00:00:00 SHINGLES VACCINES (1 of 2) [code = SHINGLES VACCINES (1 of 2)] [facility] Future Scheduled Test 2022-01-14 00:00:00 Screening for malignant neoplasm of lung (procedure) [code = 181494835] [facility] Future Scheduled Test 2022-01-14 00:00:00 SHINGLES VACCINES (1 of 2) [code = SHINGLES VACCINES (1 of 2)] [facility] Future Scheduled Test 2022-01-14 00:00:00 Screening for malignant neoplasm of lung (procedure) [code = 268644620] [facility] Future Scheduled Test 2022-01-14 00:00:00 SHINGLES VACCINES (1 of 2) [code = SHINGLES VACCINES (1 of 2)] [facility] Future Scheduled Test 2022-01-14 00:00:00 Screening for malignant neoplasm of lung (procedure) [code = [id number]] [facility] Future Scheduled Test 2022-01-14 00:00:00 SHINGLES VACCINES (1 of 2) [code = SHINGLES VACCINES (1 of 2)] [facility] Future Scheduled Test 2022-01-14 00:00:00 Screening for malignant neoplasm of lung (procedure) [code = 211607896] [facility] Future Scheduled Test 2022-01-14 00:00:00 SHINGLES VACCINES (1 of 2) [code = SHINGLES VACCINES (1 of 2)] [facility] Future Scheduled Test 2022-01-14 00:00:00 Screening for malignant neoplasm of lung (procedure) [code = 131411688] [facility] Future Scheduled Test 2022-01-14 00:00:00 SHINGLES VACCINES (1 of 2) [code = SHINGLES VACCINES (1 of 2)] [facility] Future Scheduled Test 2022-01-14 00:00:00 Screening for malignant neoplasm of lung (procedure) [code = 330613725] [facility] Future Scheduled Test 2022-01-14 00:00:00 SHINGLES VACCINES (1 of 2) [code = SHINGLES VACCINES (1 of 2)] [facility] Future Scheduled Test 2022-01-14 00:00:00 Screening for malignant neoplasm of lung (procedure) [code = 914132573] [facility] Future Scheduled Test 2022-01-14 00:00:00 SHINGLES VACCINES (1 of 2) [code = SHINGLES VACCINES (1 of 2)] [facility] Future Scheduled Test 2022-01-14 00:00:00 Screening for malignant neoplasm of lung (procedure) [code = 544053970] [facility] Future Scheduled Test 2022-01-14 00:00:00 SHINGLES VACCINES (1 of 2) [code = SHINGLES VACCINES (1 of 2)] [facility] Future Scheduled Test 2022-01-14 00:00:00 Screening for malignant neoplasm of lung (procedure) [code = 188185403] [facility] Future Scheduled Test 2022-01-14 00:00:00 SHINGLES VACCINES (1 of 2) [code = SHINGLES VACCINES (1 of 2)] [facility] Future Scheduled Test 2022-01-14 00:00:00 Screening for malignant neoplasm of lung (procedure) [code = 609627959] [facility] Future Scheduled Test 2022-01-14 00:00:00 SHINGLES VACCINES (1 of 2) [code = SHINGLES VACCINES (1 of 2)] [facility] Future Scheduled Test 2022-01-14 00:00:00 Screening for malignant neoplasm of lung (procedure) [code = 562029460] [facility] Future Scheduled Test 2022-01-14 00:00:00 SHINGLES VACCINES (1 of 2) [code = SHINGLES VACCINES (1 of 2)] [facility] Future Scheduled Test 2022-01-14 00:00:00 Screening for malignant neoplasm of lung (procedure) [code = 184966292] [facility] Future Scheduled Test 2022-01-14 00:00:00 SHINGLES VACCINES (1 of 2) [code = SHINGLES VACCINES (1 of 2)] [facility] Future Scheduled Test 2022-01-14 00:00:00 Screening for malignant neoplasm of lung (procedure) [code = 570038820] [facility] Future Scheduled Test 2022-01-14 00:00:00 SHINGLES VACCINES (1 of 2) [code = SHINGLES VACCINES (1 of 2)] [facility] Future Scheduled Test 2022-01-14 00:00:00 Screening for malignant neoplasm of lung (procedure) [code = 354302434] [facility] Future Scheduled Test 2022-01-14 00:00:00 SHINGLES VACCINES (1 of 2) [code = SHINGLES VACCINES (1 of 2)] [facility] Future Scheduled Test 2022-01-14 00:00:00 Screening for malignant neoplasm of lung (procedure) [code = 452681528] [facility] Future Scheduled Test 2022-01-14 00:00:00 SHINGLES VACCINES (1 of 2) [code = SHINGLES VACCINES (1 of 2)] [facility] Future Scheduled Test 2022-01-14 00:00:00 Screening for malignant neoplasm of lung (procedure) [code = 641735571] [facility] Future Scheduled Test 2022-01-14 00:00:00 Screening for malignant neoplasm of lung (procedure) [code = 643998334] [facility] Future Scheduled Test 2022-01-14 00:00:00 SHINGLES VACCINES (1 of 2) [code = SHINGLES VACCINES (1 of 2)] [facility] Future Scheduled Test 2022-01-14 00:00:00 SHINGLES VACCINES (1 of 2) [code = SHINGLES VACCINES (1 of 2)] [facility] Future Scheduled Test 2022-01-14 00:00:00 Screening for malignant neoplasm of lung (procedure) [code = 183328252] [facility] Future Scheduled Test 2022-01-14 00:00:00 SHINGLES VACCINES (1 of 2) [code = SHINGLES VACCINES (1 of 2)] [facility] Future Scheduled Test 2022-01-14 00:00:00 Screening for malignant neoplasm of lung (procedure) [code = 960773329] [facility] Future Scheduled Test 2022-01-14 00:00:00 SHINGLES VACCINES (1 of 2) [code = SHINGLES VACCINES (1 of 2)] [facility] Future Scheduled Test 2022-01-14 00:00:00 Screening for malignant neoplasm of lung (procedure) [code = 276699378] [facility] Future Scheduled Test 2022-01-14 00:00:00 SHINGLES VACCINES (1 of 2) [code = SHINGLES VACCINES (1 of 2)] [facility] Future Scheduled Test 2022-01-14 00:00:00 Screening for malignant neoplasm of lung (procedure) [code = 161809348] [facility] Future Scheduled Test 2022-01-14 00:00:00 Screening for malignant neoplasm of lung (procedure) [code = 324060027] [facility] Future Scheduled Test 2022-01-14 00:00:00 SHINGLES VACCINES (1 of 2) [code = SHINGLES VACCINES (1 of 2)] [facility] Future Scheduled Test 2022-01-14 00:00:00 SHINGLES VACCINES (1 of 2) [code = SHINGLES VACCINES (1 of 2)] [facility] Future Scheduled Test 2022-01-14 00:00:00 Screening for malignant neoplasm of lung (procedure) [code = 016386217] [facility] Future Scheduled Test 2022-01-14 00:00:00 SHINGLES VACCINES (1 of 2) [code = SHINGLES VACCINES (1 of 2)] [facility] Future Scheduled Test 2022-01-14 00:00:00 Screening for malignant neoplasm of lung (procedure) [code = 259855639] [facility] Future Scheduled Test 2022-01-14 00:00:00 SHINGLES VACCINES (1 of 2) [code = SHINGLES VACCINES (1 of 2)] [facility] Future Scheduled Test 2022-01-14 00:00:00 Screening for malignant neoplasm of lung (procedure) [code = 358037164] [facility] Future Scheduled Test 2022-01-14 00:00:00 SHINGLES VACCINES (1 of 2) [code = SHINGLES VACCINES (1 of 2)] [facility] Future Scheduled Test 2022-01-14 00:00:00 Screening for malignant neoplasm of lung (procedure) [code = 936803520] [facility] Future Scheduled Test 2022-01-14 00:00:00 SHINGLES VACCINES (1 of 2) [code = SHINGLES VACCINES (1 of 2)] [facility] Future Scheduled Test 2022-01-14 00:00:00 Screening for malignant neoplasm of lung (procedure) [code = 886311547] [facility] Future Scheduled Test 2022-01-14 00:00:00 SHINGLES VACCINES (1 of 2) [code = SHINGLES VACCINES (1 of 2)] [facility] Future Scheduled Test 2022-01-14 00:00:00 Screening for malignant neoplasm of lung (procedure) [code = 286585746] [facility] Future Scheduled Test 2022-01-14 00:00:00 Screening for malignant neoplasm of lung (procedure) [code = 685984091] [facility] Future Scheduled Test 2022-01-14 00:00:00 SHINGLES VACCINES (1 of 2) [code = SHINGLES VACCINES (1 of 2)] [facility] Future Scheduled Test 2022-01-14 00:00:00 SHINGLES VACCINES (1 of 2) [code = SHINGLES VACCINES (1 of 2)] [facility] Future Scheduled Test 2022-01-14 00:00:00 Screening for malignant neoplasm of lung (procedure) [code = 309202917] [facility] Future Scheduled Test 2022-01-14 00:00:00 SHINGLES VACCINES (1 of 2) [code = SHINGLES VACCINES (1 of 2)] [facility] Future Scheduled Test 2022-01-14 00:00:00 Screening for malignant neoplasm of lung (procedure) [code = 068020107] [facility] Future Scheduled Test 2022-01-14 00:00:00 SHINGLES VACCINES (1 of 2) [code = SHINGLES VACCINES (1 of 2)] [facility] Future Scheduled Test 2022-01-14 00:00:00 Screening for malignant neoplasm of lung (procedure) [code = 734567462] [facility] Future Scheduled Test 2022-01-14 00:00:00 SHINGLES VACCINES (1 of 2) [code = SHINGLES VACCINES (1 of 2)] [facility] Future Scheduled Test 2022-01-14 00:00:00 Screening for malignant neoplasm of lung (procedure) [code = 322037484] [facility] Future Scheduled Test 2022-01-14 00:00:00 SHINGLES VACCINES (1 of 2) [code = SHINGLES VACCINES (1 of 2)] [facility] Future Scheduled Test 2022-01-14 00:00:00 Screening for malignant neoplasm of lung (procedure) [code = 869771462] [facility] Future Scheduled Test 2022-01-14 00:00:00 SHINGLES VACCINES (1 of 2) [code = SHINGLES VACCINES (1 of 2)] [facility] Future Scheduled Test 2022-01-14 00:00:00 Screening for malignant neoplasm of lung (procedure) [code = 890656102] [facility] Future Scheduled Test 2022-01-14 00:00:00 SHINGLES VACCINES (1 of 2) [code = SHINGLES VACCINES (1 of 2)] [facility] Future Scheduled Test 2022-01-14 00:00:00 Screening for malignant neoplasm of lung (procedure) [code = 445065731] [facility] Future Scheduled Test 2022-01-14 00:00:00 SHINGLES VACCINES (1 of 2) [code = SHINGLES VACCINES (1 of 2)] [facility] Future Scheduled Test 2022-01-14 00:00:00 Screening for malignant neoplasm of lung (procedure) [code = 334385467] [facility] Future Scheduled Test 2022-01-14 00:00:00 SHINGLES VACCINES (1 of 2) [code = SHINGLES VACCINES (1 of 2)] [facility] Future Scheduled Test 2022-01-14 00:00:00 Screening for malignant neoplasm of lung (procedure) [code = 091936394] [facility] Future Scheduled Test 2022-01-14 00:00:00 SHINGLES VACCINES (1 of 2) [code = SHINGLES VACCINES (1 of 2)] [facility] Future Scheduled Test 2022-01-14 00:00:00 Screening for malignant neoplasm of lung (procedure) [code = 251774732] [facility] Future Scheduled Test 2022-01-14 00:00:00 SHINGLES VACCINES (1 of 2) [code = SHINGLES VACCINES (1 of 2)] [facility] Future Scheduled Test 2022-01-14 00:00:00 Screening for malignant neoplasm of lung (procedure) [code = 641916047] [facility] Future Scheduled Test 2022-01-14 00:00:00 SHINGLES VACCINES (1 of 2) [code = SHINGLES VACCINES (1 of 2)] [facility] Future Scheduled Test 2022-01-14 00:00:00 Screening for malignant neoplasm of lung (procedure) [code = 322585427] [facility] Future Scheduled Test 2022-01-14 00:00:00 SHINGLES VACCINES (1 of 2) [code = SHINGLES VACCINES (1 of 2)] [facility] Future Scheduled Test 2022-01-14 00:00:00 Screening for malignant neoplasm of lung (procedure) [code = 657618472] [facility] Future Scheduled Test 2022-01-14 00:00:00 SHINGLES VACCINES (1 of 2) [code = SHINGLES VACCINES (1 of 2)] [facility] Future Scheduled Test 2022-01-14 00:00:00 Screening for malignant neoplasm of lung (procedure) [code = 531220025] [facility] Future Scheduled Test 2022-01-14 00:00:00 SHINGLES VACCINES (1 of 2) [code = SHINGLES VACCINES (1 of 2)] [facility] Future Scheduled Test 2022-01-14 00:00:00 SHINGLES VACCINES (1 of 2) [code = SHINGLES VACCINES (1 of 2)] [facility] Future Scheduled Test 2022-01-14 00:00:00 SHINGLES VACCINES (1 of 2) [code = SHINGLES VACCINES (1 of 2)] [facility] Future Scheduled Test 2022-01-14 00:00:00 Screening for malignant neoplasm of lung (procedure) [code = 029278380] [facility] Future Scheduled Test 2022-01-14 00:00:00 SHINGLES VACCINES (1 of 2) [code = SHINGLES VACCINES (1 of 2)] [facility] Future Scheduled Test 2022-01-14 00:00:00 Screening for malignant neoplasm of lung (procedure) [code = 736236905] [facility] Future Scheduled Test 2022-01-14 00:00:00 SHINGLES VACCINES (1 of 2) [code = SHINGLES VACCINES (1 of 2)] [facility] Future Scheduled Test 2022-01-14 00:00:00 Screening for malignant neoplasm of lung (procedure) [code = 280695590] [facility] Future Scheduled Test 2022-01-14 00:00:00 SHINGLES VACCINES (1 of 2) [code = SHINGLES VACCINES (1 of 2)] [facility] Future Scheduled Test 2022-01-14 00:00:00 Screening for malignant neoplasm of lung (procedure) [code = 209953760] [facility] Future Scheduled Test 2022-01-14 00:00:00 SHINGLES VACCINES (1 of 2) [code = SHINGLES VACCINES (1 of 2)] [facility] Future Scheduled Test 2022-01-14 00:00:00 Screening for malignant neoplasm of lung (procedure) [code = 228360756] [facility] Future Scheduled Test 2022-01-14 00:00:00 SHINGLES VACCINES (1 of 2) [code = SHINGLES VACCINES (1 of 2)] [facility] Future Scheduled Test 2022-01-14 00:00:00 Screening for malignant neoplasm of lung (procedure) [code = 478488543] [facility] Future Scheduled Test 2022-01-14 00:00:00 SHINGLES VACCINES (1 of 2) [code = SHINGLES VACCINES (1 of 2)] [facility] Future Scheduled Test 2022-01-14 00:00:00 Screening for malignant neoplasm of lung (procedure) [code = 184961818] [facility] Future Scheduled Test 2022-01-14 00:00:00 SHINGLES VACCINES (1 of 2) [code = SHINGLES VACCINES (1 of 2)] [facility] Future Scheduled Test 2013-12-15 00:00:00 PNEUMOCOCCAL VACCINE 0-64 YRS (2 - PCV) [code = PNEUMOCOCCAL VACCINE 0-64 YRS (2 - PCV)] [facility] Future Scheduled Test 2013-12-15 00:00:00 PNEUMOCOCCAL VACCINE 0-64 YRS (2 - PCV) [code = PNEUMOCOCCAL VACCINE 0-64 YRS (2 - PCV)] [facility] Future Scheduled Test 2013-12-15 00:00:00 PNEUMOCOCCAL VACCINE 0-64 YRS (2 - PCV) [code = PNEUMOCOCCAL VACCINE 0-64 YRS (2 - PCV)] [facility] Future Scheduled Test 2013-12-15 00:00:00 PNEUMOCOCCAL VACCINE 0-64 YRS (2 - PCV) [code = PNEUMOCOCCAL VACCINE 0-64 YRS (2 - PCV)] [facility] Future Scheduled Test 2013-12-15 00:00:00 Pneumococcal Vaccine: 0-64 Years (2 - PCV) [code = Pneumococcal Vaccine: 0-64 Years (2 - PCV)] [facility] Future Scheduled Test 2013-12-15 00:00:00 Pneumococcal Vaccine: 0-64 Years (2 - PCV) [code = Pneumococcal Vaccine: 0-64 Years (2 - PCV)] [facility] Future Scheduled Test 2013-12-15 00:00:00 Pneumococcal Vaccine: 0-64 Years (2 - PCV) [code = Pneumococcal Vaccine: 0-64 Years (2 - PCV)] [facility] Future Scheduled Test 2013-12-15 00:00:00 Pneumococcal Vaccine: 0-64 Years (2 - PCV) [code = Pneumococcal Vaccine: 0-64 Years (2 - PCV)] [facility] Future Scheduled Test 2013-12-15 00:00:00 Pneumococcal Vaccine: 0-64 Years (2 - PCV) [code = Pneumococcal Vaccine: 0-64 Years (2 - PCV)] [facility] Future Scheduled Test 2013-12-15 00:00:00 Pneumococcal Vaccine: 0-64 Years (2 - PCV) [code = Pneumococcal Vaccine: 0-64 Years (2 - PCV)] [facility] Future Scheduled Test 2013-12-15 00:00:00 Pneumococcal Vaccine: 0-64 Years (2 - PCV) [code = Pneumococcal Vaccine: 0-64 Years (2 - PCV)] [facility] Future Scheduled Test 2013-12-15 00:00:00 Pneumococcal Vaccine: 0-64 Years (2 - PCV) [code = Pneumococcal Vaccine: 0-64 Years (2 - PCV)] [facility] Future Scheduled Test 2013-12-15 00:00:00 Pneumococcal Vaccine: 0-64 Years (2 - PCV) [code = Pneumococcal Vaccine: 0-64 Years (2 - PCV)] [facility] Future Scheduled Test 2013-12-15 00:00:00 Pneumococcal Vaccine: 0-64 Years (2 - PCV) [code = Pneumococcal Vaccine: 0-64 Years (2 - PCV)] [facility] Future Scheduled Test 2013-12-15 00:00:00 Pneumococcal Vaccine: 0-64 Years (2 - PCV) [code = Pneumococcal Vaccine: 0-64 Years (2 - PCV)] [facility] Future Scheduled Test 2013-12-15 00:00:00 Pneumococcal Vaccine: 0-64 Years (2 - PCV) [code = Pneumococcal Vaccine: 0-64 Years (2 - PCV)] [facility] Future Scheduled Test 2013-12-15 00:00:00 Pneumococcal Vaccine: 0-64 Years (2 - PCV) [code = Pneumococcal Vaccine: 0-64 Years (2 - PCV)] [facility] Future Scheduled Test 2013-12-15 00:00:00 Pneumococcal Vaccine: 0-64 Years (2 - PCV) [code = Pneumococcal Vaccine: 0-64 Years (2 - PCV)] [facility] Future Scheduled Test 2013-12-15 00:00:00 Pneumococcal Vaccine: 0-64 Years (2 - PCV) [code = Pneumococcal Vaccine: 0-64 Years (2 - PCV)] [facility] Future Scheduled Test 2013-12-15 00:00:00 Pneumococcal Vaccine: 0-64 Years (2 - PCV) [code = Pneumococcal Vaccine: 0-64 Years (2 - PCV)] [facility] Future Scheduled Test 2013-12-15 00:00:00 Pneumococcal Vaccine: 0-64 Years (2 - PCV) [code = Pneumococcal Vaccine: 0-64 Years (2 - PCV)] [facility] Future Scheduled Test 2013-12-15 00:00:00 Pneumococcal Vaccine: 0-64 Years (2 - PCV) [code = Pneumococcal Vaccine: 0-64 Years (2 - PCV)] [facility] Future Scheduled Test 2013-12-15 00:00:00 Pneumococcal Vaccine: 0-64 Years (2 - PCV) [code = Pneumococcal Vaccine: 0-64 Years (2 - PCV)] [facility] Future Scheduled Test 2013-12-15 00:00:00 Pneumococcal Vaccine: 0-64 Years (2 - PCV) [code = Pneumococcal Vaccine: 0-64 Years (2 - PCV)] [facility] Future Scheduled Test 2013-12-15 00:00:00 Pneumococcal Vaccine: 0-64 Years (2 of 2 - PCV) [code = Pneumococcal Vaccine: 0-64 Years (2 of 2 - PCV)] [facility] Future Scheduled Test 2013-12-15 00:00:00 Pneumococcal Vaccine: 0-64 Years (2 of 2 - PCV) [code = Pneumococcal Vaccine: 0-64 Years (2 of 2 - PCV)] [facility] Future Scheduled Test 2013-12-15 00:00:00 Pneumococcal Vaccine: 0-64 Years (2 of 2 - PCV) [code = Pneumococcal Vaccine: 0-64 Years (2 of 2 - PCV)] [facility] Future Scheduled Test 2013-12-15 00:00:00 Pneumococcal Vaccine: 0-64 Years (2 of 2 - PCV) [code = Pneumococcal Vaccine: 0-64 Years (2 of 2 - PCV)] [facility] Future Scheduled Test 2013-12-15 00:00:00 Pneumococcal Vaccine: 0-64 Years (2 of 2 - PCV) [code = Pneumococcal Vaccine: 0-64 Years (2 of 2 - PCV)] [facility] Future Scheduled Test 2013-12-15 00:00:00 Pneumococcal Vaccine: 0-64 Years (2 of 2 - PCV) [code = Pneumococcal Vaccine: 0-64 Years (2 of 2 - PCV)] [facility] Future Scheduled Test 2013-12-15 00:00:00 Pneumococcal Vaccine: 0-64 Years (2 of 2 - PCV) [code = Pneumococcal Vaccine: 0-64 Years (2 of 2 - PCV)] [facility] Future Scheduled Test 2013-12-15 00:00:00 Pneumococcal Vaccine: 0-64 Years (2 of 2 - PCV) [code = Pneumococcal Vaccine: 0-64 Years (2 of 2 - PCV)] [facility] Future Scheduled Test 2013-12-15 00:00:00 Pneumococcal Vaccine: 0-64 Years (2 of 2 - PCV) [code = Pneumococcal Vaccine: 0-64 Years (2 of 2 - PCV)] [facility] Future Scheduled Test 2013-12-15 00:00:00 Pneumococcal Vaccine: 0-64 Years (2 of 2 - PCV) [code = Pneumococcal Vaccine: 0-64 Years (2 of 2 - PCV)] [facility] Future Scheduled Test 2013-12-15 00:00:00 Pneumococcal Vaccine: 0-64 Years (2 of 2 - PCV) [code = Pneumococcal Vaccine: 0-64 Years (2 of 2 - PCV)] [facility] Future Scheduled Test 2013-12-15 00:00:00 Pneumococcal Vaccine: 0-64 Years (2 of 2 - PCV) [code = Pneumococcal Vaccine: 0-64 Years (2 of 2 - PCV)] [facility] Future Scheduled Test 2013-12-15 00:00:00 Pneumococcal Vaccine: 0-64 Years (2 of 2 - PCV) [code = Pneumococcal Vaccine: 0-64 Years (2 of 2 - PCV)] [facility] Future Scheduled Test 2013-12-15 00:00:00 Pneumococcal Vaccine: 0-64 Years (2 of 2 - PCV) [code = Pneumococcal Vaccine: 0-64 Years (2 of 2 - PCV)] [facility] Future Scheduled Test 2013-12-15 00:00:00 Pneumococcal Vaccine: 0-64 Years (2 of 2 - PCV) [code = Pneumococcal Vaccine: 0-64 Years (2 of 2 - PCV)] [facility] Future Scheduled Test 2013-12-15 00:00:00 Pneumococcal Vaccine: 0-64 Years (2 of 2 - PCV) [code = Pneumococcal Vaccine: 0-64 Years (2 of 2 - PCV)] [facility] Future Scheduled Test 2013-12-15 00:00:00 Pneumococcal Vaccine: 0-64 Years (2 of 2 - PCV) [code = Pneumococcal Vaccine: 0-64 Years (2 of 2 - PCV)] [facility] Future Scheduled Test 2013-12-15 00:00:00 Pneumococcal Vaccine: 0-64 Years (2 of 2 - PCV) [code = Pneumococcal Vaccine: 0-64 Years (2 of 2 - PCV)] [facility] Future Scheduled Test 2013-12-15 00:00:00 Pneumococcal Vaccine: 0-64 Years (2 of 2 - PCV) [code = Pneumococcal Vaccine: 0-64 Years (2 of 2 - PCV)] [facility] Future Scheduled Test 2013-12-15 00:00:00 Pneumococcal Vaccine: 0-64 Years (2 - PCV) [code = Pneumococcal Vaccine: 0-64 Years (2 - PCV)] [facility] Future Scheduled Test 2013-12-15 00:00:00 Pneumococcal Vaccine: 0-64 Years (2 - PCV) [code = Pneumococcal Vaccine: 0-64 Years (2 - PCV)] [facility] Future Scheduled Test 2013-12-15 00:00:00 Pneumococcal Vaccine: 0-64 Years (2 - PCV) [code = Pneumococcal Vaccine: 0-64 Years (2 - PCV)] [facility] Future Scheduled Test 1993-01-14 00:00:00 Screening for malignant neoplasm of cervix (procedure) [code = [id number]] [facility] Future Scheduled Test 1993-01-14 00:00:00 Screening for malignant neoplasm of cervix (procedure) [code = [id number]] [facility] Future Scheduled Test 1993-01-14 00:00:00 Screening for malignant neoplasm of cervix (procedure) [code = [id number]] [facility] Future Scheduled Test 1993-01-14 00:00:00 Screening for malignant neoplasm of cervix (procedure) [code = [id number]] [facility] Future Scheduled Test 1993-01-14 00:00:00 Screening for malignant neoplasm of cervix (procedure) [code = [id number]] [facility] Future Scheduled Test 1993-01-14 00:00:00 Screening for malignant neoplasm of cervix (procedure) [code = [id number]] [facility] Future Scheduled Test 1993-01-14 00:00:00 Screening for malignant neoplasm of cervix (procedure) [code = [id number]] [facility] Future Scheduled Test 1993-01-14 00:00:00 Screening for malignant neoplasm of cervix (procedure) [code = 792312077] [facility] Future Scheduled Test 1993-01-14 00:00:00 Screening for malignant neoplasm of cervix (procedure) [code = 901651070] [facility] Future Scheduled Test 1993-01-14 00:00:00 Screening for malignant neoplasm of cervix (procedure) [code = [id number]] [facility] Future Scheduled Test 1993-01-14 00:00:00 Screening for malignant neoplasm of cervix (procedure) [code = 455190487] [facility] Future Scheduled Test 1993-01-14 00:00:00 Screening for malignant neoplasm of cervix (procedure) [code = [id number]] [facility] Future Scheduled Test 1993-01-14 00:00:00 Screening for malignant neoplasm of cervix (procedure) [code = [id number]] [facility] Future Scheduled Test 1993-01-14 00:00:00 Screening for malignant neoplasm of cervix (procedure) [code = 300836090] [facility] Future Scheduled Test 1993-01-14 00:00:00 Screening for malignant neoplasm of cervix (procedure) [code = [id number]] [facility] Future Scheduled Test 1993-01-14 00:00:00 Screening for malignant neoplasm of cervix (procedure) [code = [id number]] [facility] Future Scheduled Test 1993-01-14 00:00:00 Screening for malignant neoplasm of cervix (procedure) [code = [id number]] [facility] Future Scheduled Test 1993-01-14 00:00:00 Screening for malignant neoplasm of cervix (procedure) [code = 987910317] [facility] Future Scheduled Test 1993-01-14 00:00:00 Screening for malignant neoplasm of cervix (procedure) [code = [id number]] [facility] Future Scheduled Test 1993-01-14 00:00:00 Screening for malignant neoplasm of cervix (procedure) [code = 695764380] [facility] Future Scheduled Test 1993-01-14 00:00:00 Screening for malignant neoplasm of cervix (procedure) [code = 766712144] [facility] Future Scheduled Test 1993-01-14 00:00:00 Screening for malignant neoplasm of cervix (procedure) [code = 380560057] [facility] Future Scheduled Test 1993-01-14 00:00:00 Screening for malignant neoplasm of cervix (procedure) [code = 149514549] [facility] Future Scheduled Test 1993-01-14 00:00:00 Screening for malignant neoplasm of cervix (procedure) [code = 376124926] [facility] Future Scheduled Test 1993-01-14 00:00:00 Screening for malignant neoplasm of cervix (procedure) [code = 161501580] [facility] Future Scheduled Test 1993-01-14 00:00:00 Screening for malignant neoplasm of cervix (procedure) [code = 397661910] [facility] Future Scheduled Test 1993-01-14 00:00:00 Screening for malignant neoplasm of cervix (procedure) [code = 535740101] [facility] Future Scheduled Test 1993-01-14 00:00:00 Screening for malignant neoplasm of cervix (procedure) [code = 816951757] [facility] Future Scheduled Test 1993-01-14 00:00:00 Screening for malignant neoplasm of cervix (procedure) [code = 761779577] [facility] Future Scheduled Test 1993-01-14 00:00:00 Screening for malignant neoplasm of cervix (procedure) [code = 292899850] [facility] Future Scheduled Test 1993-01-14 00:00:00 Screening for malignant neoplasm of cervix (procedure) [code = 145347786] [facility] Future Scheduled Test 1993-01-14 00:00:00 Screening for malignant neoplasm of cervix (procedure) [code = 313425641] [facility] Future Scheduled Test 1993-01-14 00:00:00 Screening for malignant neoplasm of cervix (procedure) [code = 822723108] [facility] Future Scheduled Test 1993-01-14 00:00:00 Screening for malignant neoplasm of cervix (procedure) [code = 057833084] [facility] Future Scheduled Test 1993-01-14 00:00:00 Screening for malignant neoplasm of cervix (procedure) [code = 911236006] [facility] Future Scheduled Test 1993-01-14 00:00:00 Screening for malignant neoplasm of cervix (procedure) [code = 870014158] [facility] Future Scheduled Test 1993-01-14 00:00:00 Screening for malignant neoplasm of cervix (procedure) [code = 744872317] [facility] Future Scheduled Test 1993-01-14 00:00:00 Screening for malignant neoplasm of cervix (procedure) [code = 386693506] [facility] Future Scheduled Test 1993-01-14 00:00:00 Screening for malignant neoplasm of cervix (procedure) [code = 153150603] [facility] Future Scheduled Test 1993-01-14 00:00:00 Screening for malignant neoplasm of cervix (procedure) [code = 774905922] [facility] Future Scheduled Test 1993-01-14 00:00:00 Screening for malignant neoplasm of cervix (procedure) [code = 205403543] [facility] Future Scheduled Test 1993-01-14 00:00:00 Screening for malignant neoplasm of cervix (procedure) [code = 431285035] [facility] Future Scheduled Test 1993-01-14 00:00:00 Screening for malignant neoplasm of cervix (procedure) [code = 156500532] [facility] Future Scheduled Test 1993-01-14 00:00:00 Screening for malignant neoplasm of cervix (procedure) [code = 796721842] [facility] Future Scheduled Test 1993-01-14 00:00:00 Screening for malignant neoplasm of cervix (procedure) [code = 480074929] [facility] Future Scheduled Test 1993-01-14 00:00:00 Screening for malignant neoplasm of cervix (procedure) [code = 580028595] [facility] Future Scheduled Test 1993-01-14 00:00:00 Screening for malignant neoplasm of cervix (procedure) [code = 212118192] [facility] Future Scheduled Test 1993-01-14 00:00:00 Screening for malignant neoplasm of cervix (procedure) [code = 350725926] [facility] Future Scheduled Test 1993-01-14 00:00:00 Screening for malignant neoplasm of cervix (procedure) [code = 046360901] [facility] Future Scheduled Test 1993-01-14 00:00:00 Screening for malignant neoplasm of cervix (procedure) [code = 561726953] [facility] Future Scheduled Test 1993-01-14 00:00:00 Screening for malignant neoplasm of cervix (procedure) [code = 554553859] [facility] Future Scheduled Test 1993-01-14 00:00:00 Screening for malignant neoplasm of cervix (procedure) [code = 005720436] [facility] Future Scheduled Test 1993-01-14 00:00:00 Screening for malignant neoplasm of cervix (procedure) [code = 682978903] [facility] Future Scheduled Test 1993-01-14 00:00:00 Screening for malignant neoplasm of cervix (procedure) [code = 802227247] [facility] Future Scheduled Test 1993-01-14 00:00:00 Screening for malignant neoplasm of cervix (procedure) [code = 670483828] [facility] Future Scheduled Test 1993-01-14 00:00:00 Screening for malignant neoplasm of cervix (procedure) [code = 822122320] [facility] Future Scheduled Test 1993-01-14 00:00:00 Screening for malignant neoplasm of cervix (procedure) [code = 785395778] [facility] Future Scheduled Test 1993-01-14 00:00:00 Screening for malignant neoplasm of cervix (procedure) [code = 902896729] [facility] Future Scheduled Test 1993-01-14 00:00:00 Screening for malignant neoplasm of cervix (procedure) [code = 853921838] [facility] Future Scheduled Test 1993-01-14 00:00:00 Screening for malignant neoplasm of cervix (procedure) [code = 129508369] [facility] Future Scheduled Test 1993-01-14 00:00:00 Screening for malignant neoplasm of cervix (procedure) [code = 323143733] [facility] Future Scheduled Test 1993-01-14 00:00:00 Screening for malignant neoplasm of cervix (procedure) [code = [id number]] [facility] Future Scheduled Test 1993-01-14 00:00:00 Screening for malignant neoplasm of cervix (procedure) [code = 583911955] [facility] Future Scheduled Test 1993-01-14 00:00:00 Screening for malignant neoplasm of cervix (procedure) [code = 075520380] [facility] Future Scheduled Test 1993-01-14 00:00:00 Screening for malignant neoplasm of cervix (procedure) [code = [id number]] [facility] Future Scheduled Test 1993-01-14 00:00:00 Screening for malignant neoplasm of cervix (procedure) [code = 813731813] [facility] Future Scheduled Test 1993-01-14 00:00:00 Screening for malignant neoplasm of cervix (procedure) [code = 660964076] [facility] Future Scheduled Test 1993-01-14 00:00:00 Screening for malignant neoplasm of cervix (procedure) [code = 235656363] [facility] Future Scheduled Test 1993-01-14 00:00:00 Screening for malignant neoplasm of cervix (procedure) [code = 388478238] [facility] Future Scheduled Test 1993-01-14 00:00:00 Screening for malignant neoplasm of cervix (procedure) [code = 918755623] [facility] Future Scheduled Test 1991-01-14 00:00:00 DTAP/TDAP/TD VACCINES (1 - Tdap) [code = DTAP/TDAP/TD VACCINES (1 - Tdap)] [facility] Future Scheduled Test 1991-01-14 00:00:00 DTAP/TDAP/TD VACCINES (1 - Tdap) [code = DTAP/TDAP/TD VACCINES (1 - Tdap)] [facility] Future Scheduled Test 1991-01-14 00:00:00 DTAP/TDAP/TD VACCINES (1 - Tdap) [code = DTAP/TDAP/TD VACCINES (1 - Tdap)] [facility] Future Scheduled Test 1991-01-14 00:00:00 DTAP/TDAP/TD VACCINES (1 - Tdap) [code = DTAP/TDAP/TD VACCINES (1 - Tdap)] [facility] Future Scheduled Test 1991-01-14 00:00:00 DTAP/TDAP/TD VACCINES (1 - Tdap) [code = DTAP/TDAP/TD VACCINES (1 - Tdap)] [facility] Future Scheduled Test 1991-01-14 00:00:00 DTAP/TDAP/TD VACCINES (1 - Tdap) [code = DTAP/TDAP/TD VACCINES (1 - Tdap)] [facility] Future Scheduled Test 1991-01-14 00:00:00 DTAP/TDAP/TD VACCINES (1 - Tdap) [code = DTAP/TDAP/TD VACCINES (1 - Tdap)] [facility] Future Scheduled Test 1991-01-14 00:00:00 DTAP/TDAP/TD VACCINES (1 - Tdap) [code = DTAP/TDAP/TD VACCINES (1 - Tdap)] [facility] Future Scheduled Test 1991-01-14 00:00:00 DTAP/TDAP/TD VACCINES (1 - Tdap) [code = DTAP/TDAP/TD VACCINES (1 - Tdap)] [facility] Future Scheduled Test 1991-01-14 00:00:00 DTAP/TDAP/TD VACCINES (1 - Tdap) [code = DTAP/TDAP/TD VACCINES (1 - Tdap)] [facility] Future Scheduled Test 1991-01-14 00:00:00 DTAP/TDAP/TD VACCINES (1 - Tdap) [code = DTAP/TDAP/TD VACCINES (1 - Tdap)] [facility] Future Scheduled Test 1991-01-14 00:00:00 DTAP/TDAP/TD VACCINES (1 - Tdap) [code = DTAP/TDAP/TD VACCINES (1 - Tdap)] [facility] Future Scheduled Test 1991-01-14 00:00:00 DTAP/TDAP/TD VACCINES (1 - Tdap) [code = DTAP/TDAP/TD VACCINES (1 - Tdap)] [facility] Future Scheduled Test 1991-01-14 00:00:00 DTAP/TDAP/TD VACCINES (1 - Tdap) [code = DTAP/TDAP/TD VACCINES (1 - Tdap)] [facility] Future Scheduled Test 1991-01-14 00:00:00 DTAP/TDAP/TD VACCINES (1 - Tdap) [code = DTAP/TDAP/TD VACCINES (1 - Tdap)] [facility] Future Scheduled Test 1991-01-14 00:00:00 DTAP/TDAP/TD VACCINES (1 - Tdap) [code = DTAP/TDAP/TD VACCINES (1 - Tdap)] [facility] Future Scheduled Test 1991-01-14 00:00:00 DTAP/TDAP/TD VACCINES (1 - Tdap) [code = DTAP/TDAP/TD VACCINES (1 - Tdap)] [facility] Future Scheduled Test 1991-01-14 00:00:00 DTAP/TDAP/TD VACCINES (1 - Tdap) [code = DTAP/TDAP/TD VACCINES (1 - Tdap)] [facility] Future Scheduled Test 1991-01-14 00:00:00 DTAP/TDAP/TD VACCINES (1 - Tdap) [code = DTAP/TDAP/TD VACCINES (1 - Tdap)] [facility] Future Scheduled Test 1991-01-14 00:00:00 DTAP/TDAP/TD VACCINES (1 - Tdap) [code = DTAP/TDAP/TD VACCINES (1 - Tdap)] [facility] Future Scheduled Test 1991-01-14 00:00:00 DTAP/TDAP/TD VACCINES (1 - Tdap) [code = DTAP/TDAP/TD VACCINES (1 - Tdap)] [facility] Future Scheduled Test 1991-01-14 00:00:00 DTAP/TDAP/TD VACCINES (1 - Tdap) [code = DTAP/TDAP/TD VACCINES (1 - Tdap)] [facility] Future Scheduled Test 1991-01-14 00:00:00 DTAP/TDAP/TD VACCINES (1 - Tdap) [code = DTAP/TDAP/TD VACCINES (1 - Tdap)] [facility] Future Scheduled Test 1991-01-14 00:00:00 DTAP/TDAP/TD VACCINES (1 - Tdap) [code = DTAP/TDAP/TD VACCINES (1 - Tdap)] [facility] Future Scheduled Test 1991-01-14 00:00:00 DTAP/TDAP/TD VACCINES (1 - Tdap) [code = DTAP/TDAP/TD VACCINES (1 - Tdap)] [facility] Future Scheduled Test 1991-01-14 00:00:00 DTAP/TDAP/TD VACCINES (1 - Tdap) [code = DTAP/TDAP/TD VACCINES (1 - Tdap)] [facility] Future Scheduled Test 1991-01-14 00:00:00 DTAP/TDAP/TD VACCINES (1 - Tdap) [code = DTAP/TDAP/TD VACCINES (1 - Tdap)] [facility] Future Scheduled Test 1991-01-14 00:00:00 DTAP/TDAP/TD VACCINES (1 - Tdap) [code = DTAP/TDAP/TD VACCINES (1 - Tdap)] [facility] Future Scheduled Test 1991-01-14 00:00:00 DTAP/TDAP/TD VACCINES (1 - Tdap) [code = DTAP/TDAP/TD VACCINES (1 - Tdap)] [facility] Future Scheduled Test 1991-01-14 00:00:00 DTAP/TDAP/TD VACCINES (1 - Tdap) [code = DTAP/TDAP/TD VACCINES (1 - Tdap)] [facility] Future Scheduled Test 1991-01-14 00:00:00 DTAP/TDAP/TD VACCINES (1 - Tdap) [code = DTAP/TDAP/TD VACCINES (1 - Tdap)] [facility] Future Scheduled Test 1991-01-14 00:00:00 DTAP/TDAP/TD VACCINES (1 - Tdap) [code = DTAP/TDAP/TD VACCINES (1 - Tdap)] [facility] Future Scheduled Test 1991-01-14 00:00:00 DTAP/TDAP/TD VACCINES (1 - Tdap) [code = DTAP/TDAP/TD VACCINES (1 - Tdap)] [facility] Future Scheduled Test 1991-01-14 00:00:00 DTAP/TDAP/TD VACCINES (1 - Tdap) [code = DTAP/TDAP/TD VACCINES (1 - Tdap)] [facility] Future Scheduled Test 1991-01-14 00:00:00 DTAP/TDAP/TD VACCINES (1 - Tdap) [code = DTAP/TDAP/TD VACCINES (1 - Tdap)] [facility] Future Scheduled Test 1991-01-14 00:00:00 DTAP/TDAP/TD VACCINES (1 - Tdap) [code = DTAP/TDAP/TD VACCINES (1 - Tdap)] [facility] Future Scheduled Test 1991-01-14 00:00:00 DTAP/TDAP/TD VACCINES (1 - Tdap) [code = DTAP/TDAP/TD VACCINES (1 - Tdap)] [facility] Future Scheduled Test 1991-01-14 00:00:00 DTAP/TDAP/TD VACCINES (1 - Tdap) [code = DTAP/TDAP/TD VACCINES (1 - Tdap)] [facility] Future Scheduled Test 1991-01-14 00:00:00 DTAP/TDAP/TD VACCINES (1 - Tdap) [code = DTAP/TDAP/TD VACCINES (1 - Tdap)] [facility] Future Scheduled Test 1991-01-14 00:00:00 DTAP/TDAP/TD VACCINES (1 - Tdap) [code = DTAP/TDAP/TD VACCINES (1 - Tdap)] [facility] Future Scheduled Test 1991-01-14 00:00:00 DTAP/TDAP/TD VACCINES (1 - Tdap) [code = DTAP/TDAP/TD VACCINES (1 - Tdap)] [facility] Future Scheduled Test 1991-01-14 00:00:00 DTAP/TDAP/TD VACCINES (1 - Tdap) [code = DTAP/TDAP/TD VACCINES (1 - Tdap)] [facility] Future Scheduled Test 1991-01-14 00:00:00 DTAP/TDAP/TD VACCINES (1 - Tdap) [code = DTAP/TDAP/TD VACCINES (1 - Tdap)] [facility] Future Scheduled Test 1991-01-14 00:00:00 DTAP/TDAP/TD VACCINES (1 - Tdap) [code = DTAP/TDAP/TD VACCINES (1 - Tdap)] [facility] Future Scheduled Test 1991-01-14 00:00:00 DTAP/TDAP/TD VACCINES (1 - Tdap) [code = DTAP/TDAP/TD VACCINES (1 - Tdap)] [facility] Future Scheduled Test 1991-01-14 00:00:00 DTAP/TDAP/TD VACCINES (1 - Tdap) [code = DTAP/TDAP/TD VACCINES (1 - Tdap)] [facility] Future Scheduled Test 1991-01-14 00:00:00 DTAP/TDAP/TD VACCINES (1 - Tdap) [code = DTAP/TDAP/TD VACCINES (1 - Tdap)] [facility] Future Scheduled Test 1991-01-14 00:00:00 DTAP/TDAP/TD VACCINES (1 - Tdap) [code = DTAP/TDAP/TD VACCINES (1 - Tdap)] [facility] Future Scheduled Test 1991-01-14 00:00:00 DTAP/TDAP/TD VACCINES (1 - Tdap) [code = DTAP/TDAP/TD VACCINES (1 - Tdap)] [facility] Future Scheduled Test 1991-01-14 00:00:00 DTAP/TDAP/TD VACCINES (1 - Tdap) [code = DTAP/TDAP/TD VACCINES (1 - Tdap)] [facility] Future Scheduled Test 1991-01-14 00:00:00 DTAP/TDAP/TD VACCINES (1 - Tdap) [code = DTAP/TDAP/TD VACCINES (1 - Tdap)] [facility] Future Scheduled Test 1991-01-14 00:00:00 DTAP/TDAP/TD VACCINES (1 - Tdap) [code = DTAP/TDAP/TD VACCINES (1 - Tdap)] [facility] Future Scheduled Test 1991-01-14 00:00:00 DTAP/TDAP/TD VACCINES (1 - Tdap) [code = DTAP/TDAP/TD VACCINES (1 - Tdap)] [facility] Future Scheduled Test 1991-01-14 00:00:00 DTAP/TDAP/TD VACCINES (1 - Tdap) [code = DTAP/TDAP/TD VACCINES (1 - Tdap)] [facility] Future Scheduled Test 1991-01-14 00:00:00 DTAP/TDAP/TD VACCINES (1 - Tdap) [code = DTAP/TDAP/TD VACCINES (1 - Tdap)] [facility] Future Scheduled Test 1991-01-14 00:00:00 DTAP/TDAP/TD VACCINES (1 - Tdap) [code = DTAP/TDAP/TD VACCINES (1 - Tdap)] [facility] Future Scheduled Test 1991-01-14 00:00:00 DTAP/TDAP/TD VACCINES (1 - Tdap) [code = DTAP/TDAP/TD VACCINES (1 - Tdap)] [facility] Future Scheduled Test 1991-01-14 00:00:00 DTAP/TDAP/TD VACCINES (1 - Tdap) [code = DTAP/TDAP/TD VACCINES (1 - Tdap)] [facility] Future Scheduled Test 1991-01-14 00:00:00 DTAP/TDAP/TD VACCINES (1 - Tdap) [code = DTAP/TDAP/TD VACCINES (1 - Tdap)] [facility] Future Scheduled Test 1991-01-14 00:00:00 DTAP/TDAP/TD VACCINES (1 - Tdap) [code = DTAP/TDAP/TD VACCINES (1 - Tdap)] [facility] Future Scheduled Test 1991-01-14 00:00:00 DTAP/TDAP/TD VACCINES (1 - Tdap) [code = DTAP/TDAP/TD VACCINES (1 - Tdap)] [facility] Future Scheduled Test 1991-01-14 00:00:00 DTAP/TDAP/TD VACCINES (1 - Tdap) [code = DTAP/TDAP/TD VACCINES (1 - Tdap)] [facility] Future Scheduled Test 1991-01-14 00:00:00 DTAP/TDAP/TD VACCINES (1 - Tdap) [code = DTAP/TDAP/TD VACCINES (1 - Tdap)] [facility] Future Scheduled Test 1991-01-14 00:00:00 DTAP/TDAP/TD VACCINES (1 - Tdap) [code = DTAP/TDAP/TD VACCINES (1 - Tdap)] [facility] Future Scheduled Test 1991-01-14 00:00:00 DTAP/TDAP/TD VACCINES (1 - Tdap) [code = DTAP/TDAP/TD VACCINES (1 - Tdap)] [facility] Future Scheduled Test 1991-01-14 00:00:00 DTAP/TDAP/TD VACCINES (1 - Tdap) [code = DTAP/TDAP/TD VACCINES (1 - Tdap)] [facility] Future Scheduled Test 1991-01-14 00:00:00 DTAP/TDAP/TD VACCINES (1 - Tdap) [code = DTAP/TDAP/TD VACCINES (1 - Tdap)] [facility] Future Scheduled Test 1991-01-14 00:00:00 DTAP/TDAP/TD VACCINES (1 - Tdap) [code = DTAP/TDAP/TD VACCINES (1 - Tdap)] [facility] Future Scheduled Test 1991-01-14 00:00:00 DTAP/TDAP/TD VACCINES (1 - Tdap) [code = DTAP/TDAP/TD VACCINES (1 - Tdap)] [facility] Future Scheduled Test 1991-01-14 00:00:00 DTAP/TDAP/TD VACCINES (1 - Tdap) [code = DTAP/TDAP/TD VACCINES (1 - Tdap)] [facility] Future Scheduled Test 1990-01-14 00:00:00 HEPATITIS C SCREENING [code = HEPATITIS C SCREENING] [facility] Future Scheduled Test 1990-01-14 00:00:00 HEPATITIS C SCREENING [code = HEPATITIS C SCREENING] [facility] Future Scheduled Test 1990-01-14 00:00:00 HEPATITIS C SCREENING [code = HEPATITIS C SCREENING] [facility] Future Scheduled Test 1990-01-14 00:00:00 HEPATITIS C SCREENING [code = HEPATITIS C SCREENING] [facility] Future Scheduled Test 1990-01-14 00:00:00 HEPATITIS C SCREENING [code = HEPATITIS C SCREENING] [facility] Future Scheduled Test 1990-01-14 00:00:00 HEPATITIS C SCREENING [code = HEPATITIS C SCREENING] [facility] Future Scheduled Test 1990-01-14 00:00:00 HEPATITIS C SCREENING [code = HEPATITIS C SCREENING] [facility] Future Scheduled Test 1990-01-14 00:00:00 HEPATITIS C SCREENING [code = HEPATITIS C SCREENING] [facility] Future Scheduled Test 1990-01-14 00:00:00 HEPATITIS C SCREENING [code = HEPATITIS C SCREENING] [facility] Future Scheduled Test 1990-01-14 00:00:00 HEPATITIS C SCREENING [code = HEPATITIS C SCREENING] [facility] Future Scheduled Test 1990-01-14 00:00:00 HEPATITIS C SCREENING [code = HEPATITIS C SCREENING] [facility] Future Scheduled Test 1990-01-14 00:00:00 HEPATITIS C SCREENING [code = HEPATITIS C SCREENING] [facility] Future Scheduled Test 1990-01-14 00:00:00 HEPATITIS C SCREENING [code = HEPATITIS C SCREENING] [facility] Future Scheduled Test 1990-01-14 00:00:00 HEPATITIS C SCREENING [code = HEPATITIS C SCREENING] [facility] Future Scheduled Test 1990-01-14 00:00:00 HEPATITIS C SCREENING [code = HEPATITIS C SCREENING] [facility] Future Scheduled Test 1990-01-14 00:00:00 HEPATITIS C SCREENING [code = HEPATITIS C SCREENING] [facility] Future Scheduled Test 1990-01-14 00:00:00 HEPATITIS C SCREENING [code = HEPATITIS C SCREENING] [facility] Future Scheduled Test 1990-01-14 00:00:00 HEPATITIS C SCREENING [code = HEPATITIS C SCREENING] [facility] Future Scheduled Test 1990-01-14 00:00:00 HEPATITIS C SCREENING [code = HEPATITIS C SCREENING] [facility] Future Scheduled Test 1990-01-14 00:00:00 HEPATITIS C SCREENING [code = HEPATITIS C SCREENING] [facility] Future Scheduled Test 1990-01-14 00:00:00 HEPATITIS C SCREENING [code = HEPATITIS C SCREENING] [facility] Future Scheduled Test 1990-01-14 00:00:00 HEPATITIS C SCREENING [code = HEPATITIS C SCREENING] [facility] Future Scheduled Test 1990-01-14 00:00:00 HEPATITIS C SCREENING [code = HEPATITIS C SCREENING] [facility] Future Scheduled Test 1990-01-14 00:00:00 HEPATITIS C SCREENING [code = HEPATITIS C SCREENING] [facility] Future Scheduled Test 1990-01-14 00:00:00 HEPATITIS C SCREENING [code = HEPATITIS C SCREENING] [facility] Future Scheduled Test 1990-01-14 00:00:00 HEPATITIS C SCREENING [code = HEPATITIS C SCREENING] [facility] Future Scheduled Test 1990-01-14 00:00:00 HEPATITIS C SCREENING [code = HEPATITIS C SCREENING] [facility] Future Scheduled Test 1990-01-14 00:00:00 HEPATITIS C SCREENING [code = HEPATITIS C SCREENING] [facility] Future Scheduled Test 1990-01-14 00:00:00 HEPATITIS C SCREENING [code = HEPATITIS C SCREENING] [facility] Future Scheduled Test 1990-01-14 00:00:00 HEPATITIS C SCREENING [code = HEPATITIS C SCREENING] [facility] Future Scheduled Test 1990-01-14 00:00:00 HEPATITIS C SCREENING [code = HEPATITIS C SCREENING] [facility] Future Scheduled Test 1990-01-14 00:00:00 HEPATITIS C SCREENING [code = HEPATITIS C SCREENING] [facility] Future Scheduled Test 1990-01-14 00:00:00 HEPATITIS C SCREENING [code = HEPATITIS C SCREENING] [facility] Future Scheduled Test 1990-01-14 00:00:00 HEPATITIS C SCREENING [code = HEPATITIS C SCREENING] [facility] Future Scheduled Test 1990-01-14 00:00:00 HEPATITIS C SCREENING [code = HEPATITIS C SCREENING] [facility] Future Scheduled Test 1990-01-14 00:00:00 HEPATITIS C SCREENING [code = HEPATITIS C SCREENING] [facility] Future Scheduled Test 1990-01-14 00:00:00 HEPATITIS C SCREENING [code = HEPATITIS C SCREENING] [facility] Future Scheduled Test 1990-01-14 00:00:00 HEPATITIS C SCREENING [code = HEPATITIS C SCREENING] [facility] Future Scheduled Test 1990-01-14 00:00:00 HEPATITIS C SCREENING [code = HEPATITIS C SCREENING] [facility] Future Scheduled Test 1990-01-14 00:00:00 HEPATITIS C SCREENING [code = HEPATITIS C SCREENING] [facility] Future Scheduled Test 1990-01-14 00:00:00 HEPATITIS C SCREENING [code = HEPATITIS C SCREENING] [facility] Future Scheduled Test 1990-01-14 00:00:00 HEPATITIS C SCREENING [code = HEPATITIS C SCREENING] [facility] Future Scheduled Test 1990-01-14 00:00:00 HEPATITIS C SCREENING [code = HEPATITIS C SCREENING] [facility] Future Scheduled Test 1990-01-14 00:00:00 HEPATITIS C SCREENING [code = HEPATITIS C SCREENING] [facility] Future Scheduled Test 1990-01-14 00:00:00 HEPATITIS C SCREENING [code = HEPATITIS C SCREENING] [facility] Future Scheduled Test 1990-01-14 00:00:00 HEPATITIS C SCREENING [code = HEPATITIS C SCREENING] [facility] Future Scheduled Test 1990-01-14 00:00:00 HEPATITIS C SCREENING [code = HEPATITIS C SCREENING] [facility] Future Scheduled Test 1990-01-14 00:00:00 HEPATITIS C SCREENING [code = HEPATITIS C SCREENING] [facility] Future Scheduled Test 1990-01-14 00:00:00 HEPATITIS C SCREENING [code = HEPATITIS C SCREENING] [facility] Future Scheduled Test 1990-01-14 00:00:00 HEPATITIS C SCREENING [code = HEPATITIS C SCREENING] [facility] Future Scheduled Test 1990-01-14 00:00:00 HEPATITIS C SCREENING [code = HEPATITIS C SCREENING] [facility] Future Scheduled Test 1990-01-14 00:00:00 HEPATITIS C SCREENING [code = HEPATITIS C SCREENING] [facility] Future Scheduled Test 1990-01-14 00:00:00 HEPATITIS C SCREENING [code = HEPATITIS C SCREENING] [facility] Future Scheduled Test 1990-01-14 00:00:00 HEPATITIS C SCREENING [code = HEPATITIS C SCREENING] [facility] Future Scheduled Test 1990-01-14 00:00:00 HEPATITIS C SCREENING [code = HEPATITIS C SCREENING] [facility] Future Scheduled Test 1990-01-14 00:00:00 HEPATITIS C SCREENING [code = HEPATITIS C SCREENING] [facility] Future Scheduled Test 1990-01-14 00:00:00 HEPATITIS C SCREENING [code = HEPATITIS C SCREENING] [facility] Future Scheduled Test 1990-01-14 00:00:00 HEPATITIS C SCREENING [code = HEPATITIS C SCREENING] [facility] Future Scheduled Test 1990-01-14 00:00:00 HEPATITIS C SCREENING [code = HEPATITIS C SCREENING] [facility] Future Scheduled Test 1990-01-14 00:00:00 HEPATITIS C SCREENING [code = HEPATITIS C SCREENING] [facility] Future Scheduled Test 1990-01-14 00:00:00 HEPATITIS C SCREENING [code = HEPATITIS C SCREENING] [facility] Future Scheduled Test 1990-01-14 00:00:00 HEPATITIS C SCREENING [code = HEPATITIS C SCREENING] [facility] Future Scheduled Test 1990-01-14 00:00:00 HEPATITIS C SCREENING [code = HEPATITIS C SCREENING] [facility] Future Scheduled Test 1990-01-14 00:00:00 HEPATITIS C SCREENING [code = HEPATITIS C SCREENING] [facility] Future Scheduled Test 1990-01-14 00:00:00 HEPATITIS C SCREENING [code = HEPATITIS C SCREENING] [facility] Future Scheduled Test 1990-01-14 00:00:00 HEPATITIS C SCREENING [code = HEPATITIS C SCREENING] [facility] Future Scheduled Test 1990-01-14 00:00:00 HEPATITIS C SCREENING [code = HEPATITIS C SCREENING] [facility] Future Scheduled Test 1990-01-14 00:00:00 HEPATITIS C SCREENING [code = HEPATITIS C SCREENING] [facility] Future Scheduled Test 1990-01-14 00:00:00 HEPATITIS C SCREENING [code = HEPATITIS C SCREENING] [facility] Future Scheduled Test 1990-01-14 00:00:00 HEPATITIS C SCREENING [code = HEPATITIS C SCREENING] [facility] Future Scheduled Test 1987-01-14 00:00:00 Human immunodeficiency virus screening (procedure) [code = 807950877] [facility] Future Scheduled Test 1987-01-14 00:00:00 Human immunodeficiency virus screening (procedure) [code = [id number]] [facility] Future Scheduled Test 1984 00:00:00 Tobacco Cessation Counseling and Screening (12+) [code = Tobacco Cessation Counseling and Screening (12+)] [facility] Future Scheduled Test 1984 00:00:00 Tobacco Cessation Counseling and Screening (12+) [code = Tobacco Cessation Counseling and Screening (12+)] [facility] Future Scheduled Test 1984 00:00:00 Tobacco Cessation Counseling and Screening (12+) [code = Tobacco Cessation Counseling and Screening (12+)] [facility] Future Scheduled Test 1984 00:00:00 Tobacco Cessation Counseling and Screening (12+) [code = Tobacco Cessation Counseling and Screening (12+)] [facility] Future Scheduled Test 1984 00:00:00 Tobacco Cessation Counseling and Screening (12+) [code = Tobacco Cessation Counseling and Screening (12+)] [facility] Future Scheduled Test 1984 00:00:00 Tobacco Cessation Counseling and Screening (12+) [code = Tobacco Cessation Counseling and Screening (12+)] [facility] Future Scheduled Test 1984 00:00:00 Tobacco Cessation Counseling and Screening (12+) [code = Tobacco Cessation Counseling and Screening (12+)] [facility] Future Scheduled Test 1984 00:00:00 Tobacco Cessation Counseling and Screening (12+) [code = Tobacco Cessation Counseling and Screening (12+)] [facility] Future Scheduled Test 1984 00:00:00 Tobacco Cessation Counseling and Screening (12+) [code = Tobacco Cessation Counseling and Screening (12+)] [facility] Future Scheduled Test 1984 00:00:00 Tobacco Cessation Counseling and Screening (12+) [code = Tobacco Cessation Counseling and Screening (12+)] [facility] Scheduled Test 1984 00:00:00 Tobacco Cessation Counseling and Screening (12+) [code = Tobacco Cessation Counseling and Screening (12+)] [facility] Scheduled Test 1984 00:00:00 Tobacco Cessation Counseling and Screening (12+) [code = Tobacco Cessation Counseling and Screening (12+)] [facility] Scheduled Test 1984 00:00:00 Tobacco Cessation Counseling and Screening (12+) [code = Tobacco Cessation Counseling and Screening (12+)] [facility] Scheduled Test 1984 00:00:00 Tobacco Cessation Counseling and Screening (12+) [code = Tobacco Cessation Counseling and Screening (12+)] [facility] Future Scheduled Test 1984 00:00:00 Tobacco Cessation Counseling and Screening (12+) [code = Tobacco Cessation Counseling and Screening (12+)] [facility] Future Scheduled Test 1984 00:00:00 Tobacco Cessation Counseling and Screening (12+) [code = Tobacco Cessation Counseling and Screening (12+)] [facility] Future Scheduled Test 1984 00:00:00 Tobacco Cessation Counseling and Screening (12+) [code = Tobacco Cessation Counseling and Screening (12+)] [facility] Future Scheduled Test 1984 00:00:00 Tobacco Cessation Counseling and Screening (12+) [code = Tobacco Cessation Counseling and Screening (12+)] [facility] Future Scheduled Test 1984 00:00:00 Tobacco Cessation Counseling and Screening (12+) [code = Tobacco Cessation Counseling and Screening (12+)] [facility] Future Scheduled Test 1984 00:00:00 Tobacco Cessation Counseling and Screening (12+) [code = Tobacco Cessation Counseling and Screening (12+)] [facility] Future Scheduled Test 1984 00:00:00 Tobacco Cessation Counseling and Screening (12+) [code = Tobacco Cessation Counseling and Screening (12+)] [facility] Future Scheduled Test 1984 00:00:00 Tobacco Cessation Counseling and Screening (12+) [code = Tobacco Cessation Counseling and Screening (12+)] [facility] Future Scheduled Test 1984 00:00:00 Tobacco Cessation Counseling and Screening (12+) [code = Tobacco Cessation Counseling and Screening (12+)] [facility] Future Scheduled Test 1972 00:00:00 Screening for malignant neoplasm of breast (procedure) [code = [id number]] [facility] Future Scheduled Test 1972 00:00:00 CT Colonography (combo) [code = CT Colonography (combo)] [facility] Future Scheduled Test 1972 00:00:00 Screening for malignant neoplasm of colon (procedure) [code = 996692809] [facility] Future Scheduled Test 1972 00:00:00 Screening for malignant neoplasm of colon (procedure) [code = 353434995] [facility] Future Scheduled Test 1972 00:00:00 Screening for malignant neoplasm of colon (procedure) [code = 901966030] [facility] Future Scheduled Test 1972 00:00:00 Screening for malignant neoplasm of colon (procedure) [code = 307230218] [facility] Future Scheduled Test 1972 00:00:00 Sigmoidoscopy [code = Sigmoidoscopy] [facility] Future Scheduled Test 1972 00:00:00 Screening for malignant neoplasm of breast (procedure) [code = 435734730] [facility] Future Scheduled Test 1972 00:00:00 CT Colonography (combo) [code = CT Colonography (combo)] [facility] Future Scheduled Test 1972 00:00:00 Screening for malignant neoplasm of colon (procedure) [code = 985790810] [facility] Future Scheduled Test 1972 00:00:00 Screening for malignant neoplasm of colon (procedure) [code = 954349729] [facility] Future Scheduled Test 1972 00:00:00 Screening for malignant neoplasm of colon (procedure) [code = 229672164] [facility] Future Scheduled Test 1972 00:00:00 Screening for malignant neoplasm of colon (procedure) [code = 997931890] [facility] Future Scheduled Test 1972 00:00:00 Sigmoidoscopy [code = Sigmoidoscopy] [facility] Future Scheduled Test 1972 00:00:00 Screening for malignant neoplasm of breast (procedure) [code = 906693003] [facility] Future Scheduled Test 1972 00:00:00 CT Colonography (combo) [code = CT Colonography (combo)] [facility] Future Scheduled Test 1972 00:00:00 Screening for malignant neoplasm of colon (procedure) [code = 259217800] [facility] Future Scheduled Test 1972 00:00:00 Screening for malignant neoplasm of colon (procedure) [code = 111961318] [facility] Future Scheduled Test 1972 00:00:00 Screening for malignant neoplasm of colon (procedure) [code = 891495448] [facility] Future Scheduled Test 1972 00:00:00 Screening for malignant neoplasm of colon (procedure) [code = 006328759] [facility] Future Scheduled Test 1972 00:00:00 Sigmoidoscopy [code = Sigmoidoscopy] [facility] Future Scheduled Test 1972 00:00:00 Screening for malignant neoplasm of breast (procedure) [code = 191689831] [facility] Future Scheduled Test 1972 00:00:00 CT Colonography (combo) [code = CT Colonography (combo)] [facility] Future Scheduled Test 1972 00:00:00 Screening for malignant neoplasm of colon (procedure) [code = 449956242] [facility] Future Scheduled Test 1972 00:00:00 Screening for malignant neoplasm of colon (procedure) [code = 121665624] [facility] Future Scheduled Test 1972 00:00:00 Screening for malignant neoplasm of colon (procedure) [code = 865636973] [facility] Future Scheduled Test 1972 00:00:00 Screening for malignant neoplasm of colon (procedure) [code = 600340207] [facility] Future Scheduled Test 1972 00:00:00 Sigmoidoscopy [code = Sigmoidoscopy] [facility] Future Scheduled Test 1972 00:00:00 Screening for malignant neoplasm of breast (procedure) [code = 646870356] [facility] Future Scheduled Test 1972 00:00:00 CT Colonography (combo) [code = CT Colonography (combo)] [facility] Future Scheduled Test 1972 00:00:00 Screening for malignant neoplasm of colon (procedure) [code = 878078246] [facility] Future Scheduled Test 1972 00:00:00 Screening for malignant neoplasm of colon (procedure) [code = 415049580] [facility] Future Scheduled Test 1972 00:00:00 Screening for malignant neoplasm of colon (procedure) [code = 851577943] [facility] Future Scheduled Test 1972 00:00:00 Screening for malignant neoplasm of colon (procedure) [code = 348465691] [facility] Future Scheduled Test 1972 00:00:00 Sigmoidoscopy [code = Sigmoidoscopy] [facility] Future Scheduled Test 1972 00:00:00 Screening for malignant neoplasm of breast (procedure) [code = 711432533] [facility] Future Scheduled Test 1972 00:00:00 CT Colonography (combo) [code = CT Colonography (combo)] [facility] Future Scheduled Test 1972 00:00:00 Screening for malignant neoplasm of colon (procedure) [code = 043514902] [facility] Future Scheduled Test 1972 00:00:00 Screening for malignant neoplasm of colon (procedure) [code = 437507773] [facility] Future Scheduled Test 1972 00:00:00 Screening for malignant neoplasm of colon (procedure) [code = 796331272] [facility] Future Scheduled Test 1972 00:00:00 Screening for malignant neoplasm of colon (procedure) [code = 532655936] [facility] Future Scheduled Test 1972 00:00:00 Sigmoidoscopy [code = Sigmoidoscopy] [facility] Future Scheduled Test 1972 00:00:00 Screening for malignant neoplasm of breast (procedure) [code = 264806595] [facility] Future Scheduled Test 1972 00:00:00 CT Colonography (combo) [code = CT Colonography (combo)] [facility] Future Scheduled Test 1972 00:00:00 Screening for malignant neoplasm of colon (procedure) [code = 922877362] [facility] Future Scheduled Test 1972 00:00:00 Screening for malignant neoplasm of colon (procedure) [code = 742649473] [facility] Future Scheduled Test 1972 00:00:00 Screening for malignant neoplasm of colon (procedure) [code = 200989657] [facility] Future Scheduled Test 1972 00:00:00 Screening for malignant neoplasm of colon (procedure) [code = 793165220] [facility] Future Scheduled Test 1972 00:00:00 Sigmoidoscopy [code = Sigmoidoscopy] [facility] Future Scheduled Test 1972 00:00:00 Screening for malignant neoplasm of breast (procedure) [code = 912668674] [facility] Future Scheduled Test 1972 00:00:00 CT Colonography (combo) [code = CT Colonography (combo)] [facility] Future Scheduled Test 1972 00:00:00 Screening for malignant neoplasm of colon (procedure) [code = 770595825] [facility] Future Scheduled Test 1972 00:00:00 Screening for malignant neoplasm of colon (procedure) [code = 793664369] [facility] Future Scheduled Test 1972 00:00:00 Screening for malignant neoplasm of colon (procedure) [code = 178345183] [facility] Future Scheduled Test 1972 00:00:00 Screening for malignant neoplasm of colon (procedure) [code = 657753700] [facility] Future Scheduled Test 1972 00:00:00 Sigmoidoscopy [code = Sigmoidoscopy] [facility] Future Scheduled Test 1972 00:00:00 Screening for malignant neoplasm of breast (procedure) [code = 437709098] [facility] Future Scheduled Test 1972 00:00:00 CT Colonography (combo) [code = CT Colonography (combo)] [facility] Future Scheduled Test 1972 00:00:00 Screening for malignant neoplasm of colon (procedure) [code = 172856390] [facility] Future Scheduled Test 1972 00:00:00 Screening for malignant neoplasm of colon (procedure) [code = 742956864] [facility] Future Scheduled Test 1972 00:00:00 Screening for malignant neoplasm of colon (procedure) [code = 635265233] [facility] Future Scheduled Test 1972 00:00:00 Screening for malignant neoplasm of colon (procedure) [code = 323098595] [facility] Future Scheduled Test 1972 00:00:00 Sigmoidoscopy [code = Sigmoidoscopy] [facility] Future Scheduled Test 1972 00:00:00 Screening for malignant neoplasm of breast (procedure) [code = 757196718] [facility] Future Scheduled Test 1972 00:00:00 CT Colonography (combo) [code = CT Colonography (combo)] [facility] Future Scheduled Test 1972 00:00:00 Screening for malignant neoplasm of colon (procedure) [code = [id number]] [facility] Future Scheduled Test 1972 00:00:00 Screening for malignant neoplasm of colon (procedure) [code = 453743941] [facility] Future Scheduled Test 1972 00:00:00 Screening for malignant neoplasm of colon (procedure) [code = 894049144] [facility] Future Scheduled Test 1972 00:00:00 Screening for malignant neoplasm of colon (procedure) [code = 693484749] [facility] Future Scheduled Test 1972 00:00:00 Sigmoidoscopy [code = Sigmoidoscopy] [facility] Future Scheduled Test 1972 00:00:00 Screening for malignant neoplasm of breast (procedure) [code = 916090031] [facility] Future Scheduled Test 1972 00:00:00 CT Colonography (combo) [code = CT Colonography (combo)] [facility] Future Scheduled Test 1972 00:00:00 Screening for malignant neoplasm of colon (procedure) [code = 153378319] [facility] Future Scheduled Test 1972 00:00:00 Screening for malignant neoplasm of colon (procedure) [code = 778650654] [facility] Future Scheduled Test 1972 00:00:00 Screening for malignant neoplasm of colon (procedure) [code = 753680587] [facility] Future Scheduled Test 1972 00:00:00 Screening for malignant neoplasm of colon (procedure) [code = 942308349] [facility] Future Scheduled Test 1972 00:00:00 Sigmoidoscopy [code = Sigmoidoscopy] [facility] Future Scheduled Test 1972 00:00:00 Screening for malignant neoplasm of breast (procedure) [code = 772195124] [facility] Future Scheduled Test 1972 00:00:00 CT Colonography (combo) [code = CT Colonography (combo)] [facility] Future Scheduled Test 1972 00:00:00 Screening for malignant neoplasm of colon (procedure) [code = 507363464] [facility] Future Scheduled Test 1972 00:00:00 Screening for malignant neoplasm of colon (procedure) [code = 067403107] [facility] Future Scheduled Test 1972 00:00:00 Screening for malignant neoplasm of colon (procedure) [code = 619089881] [facility] Future Scheduled Test 1972 00:00:00 Screening for malignant neoplasm of colon (procedure) [code = 453149381] [facility] Future Scheduled Test 1972 00:00:00 Sigmoidoscopy [code = Sigmoidoscopy] [facility] Future Scheduled Test 1972 00:00:00 Screening for malignant neoplasm of breast (procedure) [code = 823582500] [facility] Future Scheduled Test 1972 00:00:00 CT Colonography (combo) [code = CT Colonography (combo)] [facility] Future Scheduled Test 1972 00:00:00 Screening for malignant neoplasm of colon (procedure) [code = 046208096] [facility] Future Scheduled Test 1972 00:00:00 Screening for malignant neoplasm of colon (procedure) [code = 050628117] [facility] Future Scheduled Test 1972 00:00:00 Screening for malignant neoplasm of colon (procedure) [code = 841421869] [facility] Future Scheduled Test 1972 00:00:00 Screening for malignant neoplasm of colon (procedure) [code = 006418154] [facility] Future Scheduled Test 1972 00:00:00 Sigmoidoscopy [code = Sigmoidoscopy] [facility] Future Scheduled Test 1972 00:00:00 Screening for malignant neoplasm of breast (procedure) [code = 759523689] [facility] Future Scheduled Test 1972 00:00:00 CT Colonography (combo) [code = CT Colonography (combo)] [facility] Future Scheduled Test 1972 00:00:00 Screening for malignant neoplasm of colon (procedure) [code = 968404110] [facility] Future Scheduled Test 1972 00:00:00 Screening for malignant neoplasm of colon (procedure) [code = 520513991] [facility] Future Scheduled Test 1972 00:00:00 Screening for malignant neoplasm of colon (procedure) [code = 468955216] [facility] Future Scheduled Test 1972 00:00:00 Screening for malignant neoplasm of colon (procedure) [code = 320934658] [facility] Future Scheduled Test 1972 00:00:00 Sigmoidoscopy [code = Sigmoidoscopy] [facility] Future Scheduled Test 1972 00:00:00 Screening for malignant neoplasm of breast (procedure) [code = 800773534] [facility] Future Scheduled Test 1972 00:00:00 CT Colonography (combo) [code = CT Colonography (combo)] [facility] Future Scheduled Test 1972 00:00:00 Screening for malignant neoplasm of colon (procedure) [code = 564368627] [facility] Future Scheduled Test 1972 00:00:00 Screening for malignant neoplasm of colon (procedure) [code = 221598332] [facility] Future Scheduled Test 1972 00:00:00 Screening for malignant neoplasm of colon (procedure) [code = 377331365] [facility] Future Scheduled Test 1972 00:00:00 Screening for malignant neoplasm of colon (procedure) [code = 819096387] [facility] Future Scheduled Test 1972 00:00:00 Sigmoidoscopy [code = Sigmoidoscopy] [facility] Future Scheduled Test 1972 00:00:00 Screening for malignant neoplasm of breast (procedure) [code = 061394411] [facility] Future Scheduled Test 1972 00:00:00 CT Colonography (combo) [code = CT Colonography (combo)] [facility] Future Scheduled Test 1972 00:00:00 Screening for malignant neoplasm of colon (procedure) [code = 350751758] [facility] Future Scheduled Test 1972 00:00:00 Screening for malignant neoplasm of colon (procedure) [code = 262529426] [facility] Future Scheduled Test 1972 00:00:00 Screening for malignant neoplasm of colon (procedure) [code = 255277919] [facility] Future Scheduled Test 1972 00:00:00 Screening for malignant neoplasm of colon (procedure) [code = 575160046] [facility] Future Scheduled Test 1972 00:00:00 Sigmoidoscopy [code = Sigmoidoscopy] [facility] Future Scheduled Test 1972 00:00:00 Screening for malignant neoplasm of breast (procedure) [code = 224712351] [facility] Future Scheduled Test 1972 00:00:00 CT Colonography (combo) [code = CT Colonography (combo)] [facility] Future Scheduled Test 1972 00:00:00 Screening for malignant neoplasm of colon (procedure) [code = 953451594] [facility] Future Scheduled Test 1972 00:00:00 Screening for malignant neoplasm of colon (procedure) [code = 483640667] [facility] Future Scheduled Test 1972 00:00:00 Screening for malignant neoplasm of colon (procedure) [code = 568587949] [facility] Future Scheduled Test 1972 00:00:00 Screening for malignant neoplasm of colon (procedure) [code = 561910853] [facility] Future Scheduled Test 1972 00:00:00 Sigmoidoscopy [code = Sigmoidoscopy] [facility] Future Scheduled Test 1972 00:00:00 Screening for malignant neoplasm of breast (procedure) [code = 298890004] [facility] Future Scheduled Test 1972 00:00:00 CT Colonography (combo) [code = CT Colonography (combo)] [facility] Future Scheduled Test 1972 00:00:00 Screening for malignant neoplasm of breast (procedure) [code = 185396887] [facility] Future Scheduled Test 1972 00:00:00 CT Colonography (combo) [code = CT Colonography (combo)] [facility] Future Scheduled Test 1972 00:00:00 Screening for malignant neoplasm of colon (procedure) [code = 672242980] [facility] Future Scheduled Test 1972 00:00:00 Screening for malignant neoplasm of colon (procedure) [code = 036590779] [facility] Future Scheduled Test 1972 00:00:00 Screening for malignant neoplasm of colon (procedure) [code = 249160016] [facility] Future Scheduled Test 1972 00:00:00 Screening for malignant neoplasm of colon (procedure) [code = 260093794] [facility] Future Scheduled Test 1972 00:00:00 Sigmoidoscopy [code = Sigmoidoscopy] [facility] Future Scheduled Test 1972 00:00:00 Screening for malignant neoplasm of colon (procedure) [code = 105407122] [facility] Future Scheduled Test 1972 00:00:00 Screening for malignant neoplasm of colon (procedure) [code = 004001568] [facility] Future Scheduled Test 1972 00:00:00 Screening for malignant neoplasm of colon (procedure) [code = 673144327] [facility] Future Scheduled Test 1972 00:00:00 Screening for malignant neoplasm of colon (procedure) [code = 495686226] [facility] Future Scheduled Test 1972 00:00:00 Sigmoidoscopy [code = Sigmoidoscopy] [facility] Future Scheduled Test 1972 00:00:00 Screening for malignant neoplasm of breast (procedure) [code = 407581035] [facility] Future Scheduled Test 1972 00:00:00 CT Colonography (combo) [code = CT Colonography (combo)] [facility] Future Scheduled Test 1972 00:00:00 Screening for malignant neoplasm of colon (procedure) [code = 734204164] [facility] Future Scheduled Test 1972 00:00:00 Screening for malignant neoplasm of colon (procedure) [code = 559799056] [facility] Future Scheduled Test 1972 00:00:00 Screening for malignant neoplasm of colon (procedure) [code = 923599105] [facility] Future Scheduled Test 1972 00:00:00 Screening for malignant neoplasm of colon (procedure) [code = 421164380] [facility] Future Scheduled Test 1972 00:00:00 Sigmoidoscopy [code = Sigmoidoscopy] [facility] Future Scheduled Test 1972 00:00:00 Screening for malignant neoplasm of breast (procedure) [code = 427103944] [facility] Future Scheduled Test 1972 00:00:00 CT Colonography (combo) [code = CT Colonography (combo)] [facility] Future Scheduled Test 1972 00:00:00 Screening for malignant neoplasm of colon (procedure) [code = 934687736] [facility] Future Scheduled Test 1972 00:00:00 Screening for malignant neoplasm of colon (procedure) [code = 344180566] [facility] Future Scheduled Test 1972 00:00:00 Screening for malignant neoplasm of colon (procedure) [code = 703156288] [facility] Future Scheduled Test 1972 00:00:00 Screening for malignant neoplasm of colon (procedure) [code = 407722650] [facility] Future Scheduled Test 1972 00:00:00 Sigmoidoscopy [code = Sigmoidoscopy] [facility] Future Scheduled Test 1972 00:00:00 Screening for malignant neoplasm of breast (procedure) [code = 752564725] [facility] Future Scheduled Test 1972 00:00:00 CT Colonography (combo) [code = CT Colonography (combo)] [facility] Future Scheduled Test 1972 00:00:00 Screening for malignant neoplasm of colon (procedure) [code = 640344143] [facility] Future Scheduled Test 1972 00:00:00 Screening for malignant neoplasm of colon (procedure) [code = 316838990] [facility] Future Scheduled Test 1972 00:00:00 Screening for malignant neoplasm of colon (procedure) [code = 613435884] [facility] Future Scheduled Test 1972 00:00:00 Screening for malignant neoplasm of colon (procedure) [code = 385892966] [facility] Future Scheduled Test 1972 00:00:00 Sigmoidoscopy [code = Sigmoidoscopy] [facility] Future Scheduled Test 1972 00:00:00 Screening for malignant neoplasm of breast (procedure) [code = 673129477] [facility] Future Scheduled Test 1972 00:00:00 CT Colonography (combo) [code = CT Colonography (combo)] [facility] Future Scheduled Test 1972 00:00:00 Screening for malignant neoplasm of colon (procedure) [code = 981888755] [facility] Future Scheduled Test 1972 00:00:00 Screening for malignant neoplasm of colon (procedure) [code = 500259578] [facility] Future Scheduled Test 1972 00:00:00 Screening for malignant neoplasm of colon (procedure) [code = 601824993] [facility] Future Scheduled Test 1972 00:00:00 Screening for malignant neoplasm of colon (procedure) [code = 061060703] [facility] Future Scheduled Test 1972 00:00:00 Sigmoidoscopy [code = Sigmoidoscopy] [facility] Future Scheduled Test 1972 00:00:00 Screening for malignant neoplasm of breast (procedure) [code = 396461005] [facility] Future Scheduled Test 1972 00:00:00 CT Colonography (combo) [code = CT Colonography (combo)] [facility] Future Scheduled Test 1972 00:00:00 Screening for malignant neoplasm of colon (procedure) [code = 970279261] [facility] Future Scheduled Test 1972 00:00:00 Screening for malignant neoplasm of colon (procedure) [code = 564845600] [facility] Future Scheduled Test 1972 00:00:00 Screening for malignant neoplasm of colon (procedure) [code = 975912583] [facility] Future Scheduled Test 1972 00:00:00 Screening for malignant neoplasm of colon (procedure) [code = 296499559] [facility] Future Scheduled Test 1972 00:00:00 Sigmoidoscopy [code = Sigmoidoscopy] [facility] Future Scheduled Test 1972 00:00:00 Screening for malignant neoplasm of breast (procedure) [code = 010236063] [facility] Future Scheduled Test 1972 00:00:00 CT Colonography (combo) [code = CT Colonography (combo)] [facility] Future Scheduled Test 1972 00:00:00 Screening for malignant neoplasm of colon (procedure) [code = 504525419] [facility] Future Scheduled Test 1972 00:00:00 Screening for malignant neoplasm of colon (procedure) [code = 038676053] [facility] Future Scheduled Test 1972 00:00:00 Screening for malignant neoplasm of colon (procedure) [code = 169512102] [facility] Future Scheduled Test 1972 00:00:00 Screening for malignant neoplasm of colon (procedure) [code = 140717078] [facility] Future Scheduled Test 1972 00:00:00 Sigmoidoscopy [code = Sigmoidoscopy] [facility] Future Scheduled Test 1972 00:00:00 Screening for malignant neoplasm of breast (procedure) [code = 148243170] [facility] Future Scheduled Test 1972 00:00:00 CT Colonography (combo) [code = CT Colonography (combo)] [facility] Future Scheduled Test 1972 00:00:00 Screening for malignant neoplasm of colon (procedure) [code = 376243014] [facility] Future Scheduled Test 1972 00:00:00 Screening for malignant neoplasm of colon (procedure) [code = 275560352] [facility] Future Scheduled Test 1972 00:00:00 Screening for malignant neoplasm of colon (procedure) [code = 048884605] [facility] Future Scheduled Test 1972 00:00:00 Screening for malignant neoplasm of colon (procedure) [code = 934944564] [facility] Future Scheduled Test 1972 00:00:00 Screening for malignant neoplasm of breast (procedure) [code = 119409563] [facility] Future Scheduled Test 1972 00:00:00 CT Colonography (combo) [code = CT Colonography (combo)] [facility] Future Scheduled Test 1972 00:00:00 Sigmoidoscopy [code = Sigmoidoscopy] [facility] Future Scheduled Test 1972 00:00:00 Screening for malignant neoplasm of colon (procedure) [code = 880118671] [facility] Future Scheduled Test 1972 00:00:00 Screening for malignant neoplasm of colon (procedure) [code = 196252733] [facility] Future Scheduled Test 1972 00:00:00 Screening for malignant neoplasm of colon (procedure) [code = 284346524] [facility] Future Scheduled Test 1972 00:00:00 Screening for malignant neoplasm of colon (procedure) [code = 568315544] [facility] Future Scheduled Test 1972 00:00:00 Sigmoidoscopy [code = Sigmoidoscopy] [facility] Future Scheduled Test 1972 00:00:00 Screening for malignant neoplasm of breast (procedure) [code = 504931046] [facility] Future Scheduled Test 1972 00:00:00 CT Colonography (combo) [code = CT Colonography (combo)] [facility] Future Scheduled Test 1972 00:00:00 Screening for malignant neoplasm of colon (procedure) [code = 058796435] [facility] Future Scheduled Test 1972 00:00:00 Screening for malignant neoplasm of colon (procedure) [code = 992494018] [facility] Future Scheduled Test 1972 00:00:00 Screening for malignant neoplasm of colon (procedure) [code = 094559962] [facility] Future Scheduled Test 1972 00:00:00 Screening for malignant neoplasm of colon (procedure) [code = 374522223] [facility] Future Scheduled Test 1972 00:00:00 Sigmoidoscopy [code = Sigmoidoscopy] [facility] Future Scheduled Test 1972 00:00:00 Screening for malignant neoplasm of breast (procedure) [code = 952563115] [facility] Future Scheduled Test 1972 00:00:00 CT Colonography (combo) [code = CT Colonography (combo)] [facility] Future Scheduled Test 1972 00:00:00 Screening for malignant neoplasm of colon (procedure) [code = 508037889] [facility] Future Scheduled Test 1972 00:00:00 Screening for malignant neoplasm of colon (procedure) [code = 647426262] [facility] Future Scheduled Test 1972 00:00:00 Screening for malignant neoplasm of colon (procedure) [code = 774945418] [facility] Future Scheduled Test 1972 00:00:00 Screening for malignant neoplasm of colon (procedure) [code = 605455527] [facility] Future Scheduled Test 1972 00:00:00 Sigmoidoscopy [code = Sigmoidoscopy] [facility] Future Scheduled Test 1972 00:00:00 Screening for malignant neoplasm of breast (procedure) [code = 200966364] [facility] Future Scheduled Test 1972 00:00:00 CT Colonography (combo) [code = CT Colonography (combo)] [facility] Future Scheduled Test 1972 00:00:00 Screening for malignant neoplasm of colon (procedure) [code = 667878930] [facility] Future Scheduled Test 1972 00:00:00 Screening for malignant neoplasm of colon (procedure) [code = 561374300] [facility] Future Scheduled Test 1972 00:00:00 Screening for malignant neoplasm of colon (procedure) [code = 683586677] [facility] Future Scheduled Test 1972 00:00:00 Screening for malignant neoplasm of colon (procedure) [code = 833489677] [facility] Future Scheduled Test 1972 00:00:00 Sigmoidoscopy [code = Sigmoidoscopy] [facility] Future Scheduled Test 1972 00:00:00 Screening for malignant neoplasm of breast (procedure) [code = 865348950] [facility] Future Scheduled Test 1972 00:00:00 CT Colonography (combo) [code = CT Colonography (combo)] [facility] Future Scheduled Test 1972 00:00:00 Screening for malignant neoplasm of colon (procedure) [code = 177062736] [facility] Future Scheduled Test 1972 00:00:00 Screening for malignant neoplasm of colon (procedure) [code = 460448678] [facility] Future Scheduled Test 1972 00:00:00 Screening for malignant neoplasm of colon (procedure) [code = 389220144] [facility] Future Scheduled Test 1972 00:00:00 Screening for malignant neoplasm of colon (procedure) [code = 711729703] [facility] Future Scheduled Test 1972 00:00:00 Sigmoidoscopy [code = Sigmoidoscopy] [facility] Future Scheduled Test 1972 00:00:00 Screening for malignant neoplasm of breast (procedure) [code = 686948257] [facility] Future Scheduled Test 1972 00:00:00 CT Colonography (combo) [code = CT Colonography (combo)] [facility] Future Scheduled Test 1972 00:00:00 Screening for malignant neoplasm of colon (procedure) [code = 742445526] [facility] Future Scheduled Test 1972 00:00:00 Screening for malignant neoplasm of colon (procedure) [code = 818649685] [facility] Future Scheduled Test 1972 00:00:00 Screening for malignant neoplasm of colon (procedure) [code = 731131789] [facility] Future Scheduled Test 1972 00:00:00 Screening for malignant neoplasm of colon (procedure) [code = 544415288] [facility] Future Scheduled Test 1972 00:00:00 Sigmoidoscopy [code = Sigmoidoscopy] [facility] Future Scheduled Test 1972 00:00:00 Screening for malignant neoplasm of breast (procedure) [code = 537853300] [facility] Future Scheduled Test 1972 00:00:00 CT Colonography (combo) [code = CT Colonography (combo)] [facility] Future Scheduled Test 1972 00:00:00 Screening for malignant neoplasm of colon (procedure) [code = 468904486] [facility] Future Scheduled Test 1972 00:00:00 Screening for malignant neoplasm of colon (procedure) [code = 695027704] [facility] Future Scheduled Test 1972 00:00:00 Screening for malignant neoplasm of breast (procedure) [code = 339984635] [facility] Future Scheduled Test 1972 00:00:00 Screening for malignant neoplasm of colon (procedure) [code = 770819027] [facility] Future Scheduled Test 1972 00:00:00 CT Colonography (combo) [code = CT Colonography (combo)] [facility] Future Scheduled Test 1972 00:00:00 Screening for malignant neoplasm of colon (procedure) [code = 220490342] [facility] Future Scheduled Test 1972 00:00:00 Screening for malignant neoplasm of colon (procedure) [code = 364299100] [facility] Future Scheduled Test 1972 00:00:00 Screening for malignant neoplasm of colon (procedure) [code = 276074329] [facility] Future Scheduled Test 1972 00:00:00 Screening for malignant neoplasm of colon (procedure) [code = 599596029] [facility] Future Scheduled Test 1972 00:00:00 Sigmoidoscopy [code = Sigmoidoscopy] [facility] Future Scheduled Test 1972 00:00:00 Screening for malignant neoplasm of colon (procedure) [code = 088878312] [facility] Future Scheduled Test 1972 00:00:00 Sigmoidoscopy [code = Sigmoidoscopy] [facility] Future Scheduled Test 1972 00:00:00 Screening for malignant neoplasm of breast (procedure) [code = 935925768] [facility] Future Scheduled Test 1972 00:00:00 CT Colonography (combo) [code = CT Colonography (combo)] [facility] Future Scheduled Test 1972 00:00:00 Screening for malignant neoplasm of colon (procedure) [code = [id number]] [facility] Future Scheduled Test 1972 00:00:00 Screening for malignant neoplasm of colon (procedure) [code = 797427373] [facility] Future Scheduled Test 1972 00:00:00 Screening for malignant neoplasm of colon (procedure) [code = 251159016] [facility] Future Scheduled Test 1972 00:00:00 Screening for malignant neoplasm of colon (procedure) [code = 863834814] [facility] Future Scheduled Test 1972 00:00:00 Sigmoidoscopy [code = Sigmoidoscopy] [facility] Future Scheduled Test 1972 00:00:00 Screening for malignant neoplasm of breast (procedure) [code = 205662953] [facility] Future Scheduled Test 1972 00:00:00 CT Colonography (combo) [code = CT Colonography (combo)] [facility] Future Scheduled Test 1972 00:00:00 Screening for malignant neoplasm of colon (procedure) [code = 565044086] [facility] Future Scheduled Test 1972 00:00:00 Screening for malignant neoplasm of colon (procedure) [code = 079251756] [facility] Future Scheduled Test 1972 00:00:00 Screening for malignant neoplasm of colon (procedure) [code = 639583313] [facility] Future Scheduled Test 1972 00:00:00 Screening for malignant neoplasm of colon (procedure) [code = 865545261] [facility] Future Scheduled Test 1972 00:00:00 Sigmoidoscopy [code = Sigmoidoscopy] [facility] Future Scheduled Test 1972 00:00:00 Screening for malignant neoplasm of breast (procedure) [code = 339542319] [facility] Future Scheduled Test 1972 00:00:00 CT Colonography (combo) [code = CT Colonography (combo)] [facility] Future Scheduled Test 1972 00:00:00 Screening for malignant neoplasm of colon (procedure) [code = 809226922] [facility] Future Scheduled Test 1972 00:00:00 Screening for malignant neoplasm of colon (procedure) [code = 168756983] [facility] Future Scheduled Test 1972 00:00:00 Screening for malignant neoplasm of colon (procedure) [code = 248601312] [facility] Future Scheduled Test 1972 00:00:00 Screening for malignant neoplasm of colon (procedure) [code = 669198138] [facility] Future Scheduled Test 1972 00:00:00 Sigmoidoscopy [code = Sigmoidoscopy] [facility] Future Scheduled Test 1972 00:00:00 Screening for malignant neoplasm of breast (procedure) [code = 168405308] [facility] Future Scheduled Test 1972 00:00:00 CT Colonography (combo) [code = CT Colonography (combo)] [facility] Future Scheduled Test 1972 00:00:00 Screening for malignant neoplasm of colon (procedure) [code = 879043127] [facility] Future Scheduled Test 1972 00:00:00 Screening for malignant neoplasm of colon (procedure) [code = 833704315] [facility] Future Scheduled Test 1972 00:00:00 Screening for malignant neoplasm of colon (procedure) [code = 016934014] [facility] Future Scheduled Test 1972 00:00:00 Screening for malignant neoplasm of colon (procedure) [code = 868455584] [facility] Future Scheduled Test 1972 00:00:00 Sigmoidoscopy [code = Sigmoidoscopy] [facility] Future Scheduled Test 1972 00:00:00 Screening for malignant neoplasm of breast (procedure) [code = 396476447] [facility] Future Scheduled Test 1972 00:00:00 CT Colonography (combo) [code = CT Colonography (combo)] [facility] Future Scheduled Test 1972 00:00:00 Screening for malignant neoplasm of colon (procedure) [code = 198091536] [facility] Future Scheduled Test 1972 00:00:00 Screening for malignant neoplasm of colon (procedure) [code = 965807006] [facility] Future Scheduled Test 1972 00:00:00 Screening for malignant neoplasm of colon (procedure) [code = 877817130] [facility] Future Scheduled Test 1972 00:00:00 Screening for malignant neoplasm of colon (procedure) [code = 043437012] [facility] Future Scheduled Test 1972 00:00:00 Sigmoidoscopy [code = Sigmoidoscopy] [facility] Future Scheduled Test 1972 00:00:00 Screening for malignant neoplasm of breast (procedure) [code = 109289423] [facility] Future Scheduled Test 1972 00:00:00 CT Colonography (combo) [code = CT Colonography (combo)] [facility] Future Scheduled Test 1972 00:00:00 Screening for malignant neoplasm of colon (procedure) [code = 469184820] [facility] Future Scheduled Test 1972 00:00:00 Screening for malignant neoplasm of colon (procedure) [code = 607845194] [facility] Future Scheduled Test 1972 00:00:00 Screening for malignant neoplasm of colon (procedure) [code = 025701521] [facility] Future Scheduled Test 1972 00:00:00 Screening for malignant neoplasm of colon (procedure) [code = 924243386] [facility] Future Scheduled Test 1972 00:00:00 Sigmoidoscopy [code = Sigmoidoscopy] [facility] Future Scheduled Test 1972 00:00:00 Screening for malignant neoplasm of breast (procedure) [code = 039759546] [facility] Future Scheduled Test 1972 00:00:00 CT Colonography (combo) [code = CT Colonography (combo)] [facility] Future Scheduled Test 1972 00:00:00 Screening for malignant neoplasm of colon (procedure) [code = 354728386] [facility] Future Scheduled Test 1972 00:00:00 Screening for malignant neoplasm of colon (procedure) [code = 976261877] [facility] Future Scheduled Test 1972 00:00:00 Screening for malignant neoplasm of colon (procedure) [code = 507599810] [facility] Future Scheduled Test 1972 00:00:00 Screening for malignant neoplasm of colon (procedure) [code = 542199694] [facility] Future Scheduled Test 1972 00:00:00 Sigmoidoscopy [code = Sigmoidoscopy] [facility] Future Scheduled Test 1972 00:00:00 Screening for malignant neoplasm of breast (procedure) [code = 819479465] [facility] Future Scheduled Test 1972 00:00:00 CT Colonography (combo) [code = CT Colonography (combo)] [facility] Future Scheduled Test 1972 00:00:00 Screening for malignant neoplasm of colon (procedure) [code = 098480173] [facility] Future Scheduled Test 1972 00:00:00 Screening for malignant neoplasm of colon (procedure) [code = 527689804] [facility] Future Scheduled Test 1972 00:00:00 Screening for malignant neoplasm of colon (procedure) [code = 536339892] [facility] Future Scheduled Test 1972 00:00:00 Screening for malignant neoplasm of colon (procedure) [code = 599745888] [facility] Future Scheduled Test 1972 00:00:00 Sigmoidoscopy [code = Sigmoidoscopy] [facility] Future Scheduled Test 1972 00:00:00 Screening for malignant neoplasm of breast (procedure) [code = 251087088] [facility] Future Scheduled Test 1972 00:00:00 CT Colonography (combo) [code = CT Colonography (combo)] [facility] Future Scheduled Test 1972 00:00:00 Screening for malignant neoplasm of colon (procedure) [code = 986190169] [facility] Future Scheduled Test 1972 00:00:00 Screening for malignant neoplasm of colon (procedure) [code = 359331624] [facility] Future Scheduled Test 1972 00:00:00 Screening for malignant neoplasm of colon (procedure) [code = 583301921] [facility] Future Scheduled Test 1972 00:00:00 Screening for malignant neoplasm of colon (procedure) [code = 442907650] [facility] Future Scheduled Test 1972 00:00:00 Sigmoidoscopy [code = Sigmoidoscopy] [facility] Future Scheduled Test 1972 00:00:00 Screening for malignant neoplasm of breast (procedure) [code = 799879279] [facility] Future Scheduled Test 1972 00:00:00 CT Colonography (combo) [code = CT Colonography (combo)] [facility] Future Scheduled Test 1972 00:00:00 Screening for malignant neoplasm of colon (procedure) [code = 358263307] [facility] Future Scheduled Test 1972 00:00:00 Screening for malignant neoplasm of colon (procedure) [code = 453677537] [facility] Future Scheduled Test 1972 00:00:00 Screening for malignant neoplasm of colon (procedure) [code = 608894064] [facility] Future Scheduled Test 1972 00:00:00 Screening for malignant neoplasm of colon (procedure) [code = 916866788] [facility] Future Scheduled Test 1972 00:00:00 Sigmoidoscopy [code = Sigmoidoscopy] [facility] Future Scheduled Test 1972 00:00:00 Screening for malignant neoplasm of breast (procedure) [code = 400244544] [facility] Future Scheduled Test 1972 00:00:00 CT Colonography (combo) [code = CT Colonography (combo)] [facility] Future Scheduled Test 1972 00:00:00 Screening for malignant neoplasm of colon (procedure) [code = 787821220] [facility] Future Scheduled Test 1972 00:00:00 Screening for malignant neoplasm of breast (procedure) [code = 101683064] [facility] Future Scheduled Test 1972 00:00:00 CT Colonography (combo) [code = CT Colonography (combo)] [facility] Future Scheduled Test 1972 00:00:00 Screening for malignant neoplasm of colon (procedure) [code = 409988372] [facility] Future Scheduled Test 1972 00:00:00 Screening for malignant neoplasm of colon (procedure) [code = 039805343] [facility] Future Scheduled Test 1972 00:00:00 Screening for malignant neoplasm of colon (procedure) [code = 376692491] [facility] Future Scheduled Test 1972 00:00:00 Screening for malignant neoplasm of colon (procedure) [code = 102567648] [facility] Future Scheduled Test 1972 00:00:00 Sigmoidoscopy [code = Sigmoidoscopy] [facility] Future Scheduled Test 1972 00:00:00 Screening for malignant neoplasm of colon (procedure) [code = 093275442] [facility] Future Scheduled Test 1972 00:00:00 Screening for malignant neoplasm of colon (procedure) [code = 778675036] [facility] Future Scheduled Test 1972 00:00:00 Screening for malignant neoplasm of colon (procedure) [code = 947882844] [facility] Future Scheduled Test 1972 00:00:00 Sigmoidoscopy [code = Sigmoidoscopy] [facility] Future Scheduled Test 1972 00:00:00 Screening for malignant neoplasm of breast (procedure) [code = 383269439] [facility] Future Scheduled Test 1972 00:00:00 CT Colonography (combo) [code = CT Colonography (combo)] [facility] Future Scheduled Test 1972 00:00:00 Screening for malignant neoplasm of colon (procedure) [code = 342288286] [facility] Future Scheduled Test 1972 00:00:00 Screening for malignant neoplasm of colon (procedure) [code = 586781618] [facility] Future Scheduled Test 1972 00:00:00 Screening for malignant neoplasm of colon (procedure) [code = 186013902] [facility] Future Scheduled Test 1972 00:00:00 Screening for malignant neoplasm of colon (procedure) [code = 224311205] [facility] Future Scheduled Test 1972 00:00:00 Sigmoidoscopy [code = Sigmoidoscopy] [facility] Future Scheduled Test 1972 00:00:00 Screening for malignant neoplasm of breast (procedure) [code = 498693100] [facility] Future Scheduled Test 1972 00:00:00 CT Colonography (combo) [code = CT Colonography (combo)] [facility] Future Scheduled Test 1972 00:00:00 Screening for malignant neoplasm of colon (procedure) [code = 666218663] [facility] Future Scheduled Test 1972 00:00:00 Screening for malignant neoplasm of colon (procedure) [code = 377540984] [facility] Future Scheduled Test 1972 00:00:00 Screening for malignant neoplasm of colon (procedure) [code = 231246450] [facility] Future Scheduled Test 1972 00:00:00 Screening for malignant neoplasm of colon (procedure) [code = 580410793] [facility] Future Scheduled Test 1972 00:00:00 Sigmoidoscopy [code = Sigmoidoscopy] [facility] Future Scheduled Test 1972 00:00:00 Screening for malignant neoplasm of breast (procedure) [code = 262795137] [facility] Future Scheduled Test 1972 00:00:00 CT Colonography (combo) [code = CT Colonography (combo)] [facility] Future Scheduled Test 1972 00:00:00 Screening for malignant neoplasm of colon (procedure) [code = 887353985] [facility] Future Scheduled Test 1972 00:00:00 Screening for malignant neoplasm of colon (procedure) [code = 165734010] [facility] Future Scheduled Test 1972 00:00:00 Screening for malignant neoplasm of colon (procedure) [code = 001045952] [facility] Future Scheduled Test 1972 00:00:00 Screening for malignant neoplasm of colon (procedure) [code = 216098458] [facility] Future Scheduled Test 1972 00:00:00 Sigmoidoscopy [code = Sigmoidoscopy] [facility] Future Scheduled Test 1972 00:00:00 Screening for malignant neoplasm of breast (procedure) [code = 313473729] [facility] Future Scheduled Test 1972 00:00:00 CT Colonography (combo) [code = CT Colonography (combo)] [facility] Future Scheduled Test 1972 00:00:00 Screening for malignant neoplasm of colon (procedure) [code = 368230168] [facility] Future Scheduled Test 1972 00:00:00 Screening for malignant neoplasm of colon (procedure) [code = 311840635] [facility] Future Scheduled Test 1972 00:00:00 Screening for malignant neoplasm of colon (procedure) [code = 765159260] [facility] Future Scheduled Test 1972 00:00:00 Screening for malignant neoplasm of colon (procedure) [code = 526489182] [facility] Future Scheduled Test 1972 00:00:00 Sigmoidoscopy [code = Sigmoidoscopy] [facility] Future Scheduled Test 1972 00:00:00 Screening for malignant neoplasm of breast (procedure) [code = 130026769] [facility] Future Scheduled Test 1972 00:00:00 CT Colonography (combo) [code = CT Colonography (combo)] [facility] Future Scheduled Test 1972 00:00:00 Screening for malignant neoplasm of colon (procedure) [code = 998158271] [facility] Future Scheduled Test 1972 00:00:00 Screening for malignant neoplasm of colon (procedure) [code = 034078533] [facility] Future Scheduled Test 1972 00:00:00 Screening for malignant neoplasm of colon (procedure) [code = 086844876] [facility] Future Scheduled Test 1972 00:00:00 Screening for malignant neoplasm of colon (procedure) [code = 680852189] [facility] Future Scheduled Test 1972 00:00:00 Screening for malignant neoplasm of breast (procedure) [code = 199602639] [facility] Future Scheduled Test 1972 00:00:00 Sigmoidoscopy [code = Sigmoidoscopy] [facility] Future Scheduled Test 1972 00:00:00 CT Colonography (combo) [code = CT Colonography (combo)] [facility] Future Scheduled Test 1972 00:00:00 Screening for malignant neoplasm of colon (procedure) [code = 622835337] [facility] Future Scheduled Test 1972 00:00:00 Screening for malignant neoplasm of breast (procedure) [code = 600122389] [facility] Future Scheduled Test 1972 00:00:00 CT Colonography (combo) [code = CT Colonography (combo)] [facility] Future Scheduled Test 1972 00:00:00 Screening for malignant neoplasm of colon (procedure) [code = 050839898] [facility] Future Scheduled Test 1972 00:00:00 Screening for malignant neoplasm of colon (procedure) [code = 336604857] [facility] Future Scheduled Test 1972 00:00:00 Screening for malignant neoplasm of colon (procedure) [code = 184230970] [facility] Future Scheduled Test 1972 00:00:00 Screening for malignant neoplasm of colon (procedure) [code = 908573707] [facility] Future Scheduled Test 1972 00:00:00 Screening for malignant neoplasm of colon (procedure) [code = 999592397] [facility] Future Scheduled Test 1972 00:00:00 Sigmoidoscopy [code = Sigmoidoscopy] [facility] Future Scheduled Test 1972 00:00:00 Screening for malignant neoplasm of colon (procedure) [code = 925985182] [facility] Future Scheduled Test 1972 00:00:00 Screening for malignant neoplasm of colon (procedure) [code = 026026289] [facility] Future Scheduled Test 1972 00:00:00 Screening for malignant neoplasm of breast (procedure) [code = 315090319] [facility] Future Scheduled Test 1972 00:00:00 CT Colonography (combo) [code = CT Colonography (combo)] [facility] Future Scheduled Test 1972 00:00:00 Screening for malignant neoplasm of colon (procedure) [code = 584496824] [facility] Future Scheduled Test 1972 00:00:00 Screening for malignant neoplasm of colon (procedure) [code = 815294540] [facility] Future Scheduled Test 1972 00:00:00 Sigmoidoscopy [code = Sigmoidoscopy] [facility] Future Scheduled Test 1972 00:00:00 Screening for malignant neoplasm of colon (procedure) [code = 879831253] [facility] Future Scheduled Test 1972 00:00:00 Screening for malignant neoplasm of colon (procedure) [code = 592701457] [facility] Future Scheduled Test 1972 00:00:00 Sigmoidoscopy [code = Sigmoidoscopy] [facility] Future Scheduled Test 1972 00:00:00 Screening for malignant neoplasm of breast (procedure) [code = 719259957] [facility] Future Scheduled Test 1972 00:00:00 CT Colonography (combo) [code = CT Colonography (combo)] [facility] Future Scheduled Test 1972 00:00:00 Screening for malignant neoplasm of colon (procedure) [code = 757272614] [facility] Future Scheduled Test 1972 00:00:00 Screening for malignant neoplasm of colon (procedure) [code = 113416369] [facility] Future Scheduled Test 1972 00:00:00 Screening for malignant neoplasm of colon (procedure) [code = 470294836] [facility] Future Scheduled Test 1972 00:00:00 Screening for malignant neoplasm of colon (procedure) [code = 342343724] [facility] Future Scheduled Test 1972 00:00:00 Sigmoidoscopy [code = Sigmoidoscopy] [facility] Future Scheduled Test 1972 00:00:00 Screening for malignant neoplasm of breast (procedure) [code = 887447815] [facility] Future Scheduled Test 1972 00:00:00 CT Colonography (combo) [code = CT Colonography (combo)] [facility] Future Scheduled Test 1972 00:00:00 Screening for malignant neoplasm of colon (procedure) [code = 139720552] [facility] Future Scheduled Test 1972 00:00:00 Screening for malignant neoplasm of colon (procedure) [code = 578281985] [facility] Future Scheduled Test 1972 00:00:00 Screening for malignant neoplasm of colon (procedure) [code = 070949264] [facility] Future Scheduled Test 1972 00:00:00 Screening for malignant neoplasm of colon (procedure) [code = 788672723] [facility] Future Scheduled Test 1972 00:00:00 Sigmoidoscopy [code = Sigmoidoscopy] [facility] Future Scheduled Test 1972 00:00:00 Screening for malignant neoplasm of breast (procedure) [code = 673723339] [facility] Future Scheduled Test 1972 00:00:00 CT Colonography (combo) [code = CT Colonography (combo)] [facility] Future Scheduled Test 1972 00:00:00 Screening for malignant neoplasm of colon (procedure) [code = 996213819] [facility] Future Scheduled Test 1972 00:00:00 Screening for malignant neoplasm of colon (procedure) [code = 455298605] [facility] Future Scheduled Test 1972 00:00:00 Screening for malignant neoplasm of colon (procedure) [code = 981740471] [facility] Future Scheduled Test 1972 00:00:00 Screening for malignant neoplasm of colon (procedure) [code = 019917503] [facility] Future Scheduled Test 1972 00:00:00 Sigmoidoscopy [code = Sigmoidoscopy] [facility] Future Scheduled Test 1972 00:00:00 Screening for malignant neoplasm of breast (procedure) [code = 603927931] [facility] Future Scheduled Test 1972 00:00:00 CT Colonography (combo) [code = CT Colonography (combo)] [facility] Future Scheduled Test 1972 00:00:00 Screening for malignant neoplasm of colon (procedure) [code = 539612602] [facility] Future Scheduled Test 1972 00:00:00 Screening for malignant neoplasm of colon (procedure) [code = 351324759] [facility] Future Scheduled Test 1972 00:00:00 Screening for malignant neoplasm of colon (procedure) [code = 094082663] [facility] Future Scheduled Test 1972 00:00:00 Screening for malignant neoplasm of colon (procedure) [code = 534540573] [facility] Future Scheduled Test 1972 00:00:00 Sigmoidoscopy [code = Sigmoidoscopy] [facility] Future Scheduled Test 1972 00:00:00 Screening for malignant neoplasm of breast (procedure) [code = 334389682] [facility] Future Scheduled Test 1972 00:00:00 CT Colonography (combo) [code = CT Colonography (combo)] [facility] Future Scheduled Test 1972 00:00:00 Screening for malignant neoplasm of colon (procedure) [code = 822651176] [facility] Future Scheduled Test 1972 00:00:00 Screening for malignant neoplasm of colon (procedure) [code = 364601577] [facility] Future Scheduled Test 1972 00:00:00 Screening for malignant neoplasm of colon (procedure) [code = 953315552] [facility] Future Scheduled Test 1972 00:00:00 Screening for malignant neoplasm of colon (procedure) [code = 072345459] [facility] Future Scheduled Test 1972 00:00:00 Sigmoidoscopy [code = Sigmoidoscopy] [facility] Future Scheduled Test 1972 00:00:00 Screening for malignant neoplasm of breast (procedure) [code = 675072215] [facility] Future Scheduled Test 1972 00:00:00 CT Colonography (combo) [code = CT Colonography (combo)] [facility] Future Scheduled Test 1972 00:00:00 Screening for malignant neoplasm of colon (procedure) [code = 287282970] [facility] Future Scheduled Test 1972 00:00:00 Screening for malignant neoplasm of colon (procedure) [code = 309689301] [facility] Future Scheduled Test 1972 00:00:00 Screening for malignant neoplasm of colon (procedure) [code = 147161990] [facility] Future Scheduled Test 1972 00:00:00 Screening for malignant neoplasm of colon (procedure) [code = 944528982] [facility] Future Scheduled Test 1972 00:00:00 Sigmoidoscopy [code = Sigmoidoscopy] [facility] Future Scheduled Test 1972 00:00:00 Screening for malignant neoplasm of breast (procedure) [code = 462886429] [facility] Future Scheduled Test 1972 00:00:00 CT Colonography (combo) [code = CT Colonography (combo)] [facility] Future Scheduled Test 1972 00:00:00 Screening for malignant neoplasm of colon (procedure) [code = 885884362] [facility] Future Scheduled Test 1972 00:00:00 Screening for malignant neoplasm of colon (procedure) [code = 176398092] [facility] Future Scheduled Test 1972 00:00:00 Screening for malignant neoplasm of colon (procedure) [code = 901369478] [facility] Future Scheduled Test 1972 00:00:00 Screening for malignant neoplasm of colon (procedure) [code = 285447201] [facility] Future Scheduled Test 1972 00:00:00 Sigmoidoscopy [code = Sigmoidoscopy] [facility] Future Scheduled Test 1972 00:00:00 Screening for malignant neoplasm of breast (procedure) [code = 699670158] [facility] Future Scheduled Test 1972 00:00:00 CT Colonography (combo) [code = CT Colonography (combo)] [facility] Future Scheduled Test 1972 00:00:00 Screening for malignant neoplasm of colon (procedure) [code = 813738574] [facility] Future Scheduled Test 1972 00:00:00 Screening for malignant neoplasm of colon (procedure) [code = 880420981] [facility] Future Scheduled Test 1972 00:00:00 Screening for malignant neoplasm of colon (procedure) [code = 709819069] [facility] Future Scheduled Test 1972 00:00:00 Screening for malignant neoplasm of colon (procedure) [code = 696357053] [facility] Future Scheduled Test 1972 00:00:00 Sigmoidoscopy [code = Sigmoidoscopy] [facility] Future Scheduled Test 1972 00:00:00 Screening for malignant neoplasm of breast (procedure) [code = 004822741] [facility] Future Scheduled Test 1972 00:00:00 CT Colonography (combo) [code = CT Colonography (combo)] [facility] Future Scheduled Test 1972 00:00:00 Screening for malignant neoplasm of colon (procedure) [code = 478988494] [facility] Future Scheduled Test 1972 00:00:00 Screening for malignant neoplasm of colon (procedure) [code = 387646324] [facility] Future Scheduled Test 1972 00:00:00 Screening for malignant neoplasm of colon (procedure) [code = 566787588] [facility] Future Scheduled Test 1972 00:00:00 Screening for malignant neoplasm of colon (procedure) [code = 825040335] [facility] Future Scheduled Test 1972 00:00:00 Sigmoidoscopy [code = Sigmoidoscopy] [facility] Future Scheduled Test 1972 00:00:00 Screening for malignant neoplasm of breast (procedure) [code = 376906375] [facility] Future Scheduled Test 1972 00:00:00 CT Colonography (combo) [code = CT Colonography (combo)] [facility] Future Scheduled Test 1972 00:00:00 Screening for malignant neoplasm of colon (procedure) [code = 592362246] [facility] Future Scheduled Test 1972 00:00:00 Screening for malignant neoplasm of colon (procedure) [code = 552353936] [facility] Future Scheduled Test 1972 00:00:00 Screening for malignant neoplasm of colon (procedure) [code = 738775859] [facility] Future Scheduled Test 1972 00:00:00 Screening for malignant neoplasm of colon (procedure) [code = 663379172] [facility] Future Scheduled Test 1972 00:00:00 Sigmoidoscopy [code = Sigmoidoscopy] [facility] Future Scheduled Test 1972 00:00:00 Screening for malignant neoplasm of breast (procedure) [code = 213427839] [facility] Future Scheduled Test 1972 00:00:00 CT Colonography (combo) [code = CT Colonography (combo)] [facility] Future Scheduled Test 1972 00:00:00 Screening for malignant neoplasm of colon (procedure) [code = 965848242] [facility] Future Scheduled Test 1972 00:00:00 Screening for malignant neoplasm of colon (procedure) [code = 101936754] [facility] Future Scheduled Test 1972 00:00:00 Screening for malignant neoplasm of colon (procedure) [code = 592114943] [facility] Future Scheduled Test 1972 00:00:00 Screening for malignant neoplasm of colon (procedure) [code = 859804949] [facility] Future Scheduled Test 1972 00:00:00 Sigmoidoscopy [code = Sigmoidoscopy] [facility] Future Scheduled Test 1972 00:00:00 Screening for malignant neoplasm of breast (procedure) [code = 488820646] [facility] Future Scheduled Test 1972 00:00:00 CT Colonography (combo) [code = CT Colonography (combo)] [facility] Future Scheduled Test 1972 00:00:00 Screening for malignant neoplasm of colon (procedure) [code = 112269927] [facility] Future Scheduled Test 1972 00:00:00 Screening for malignant neoplasm of colon (procedure) [code = 852395755] [facility] Future Scheduled Test 1972 00:00:00 Screening for malignant neoplasm of colon (procedure) [code = 599117312] [facility] Future Scheduled Test 1972 00:00:00 Screening for malignant neoplasm of colon (procedure) [code = 359956142] [facility] Future Scheduled Test 1972 00:00:00 Sigmoidoscopy [code = Sigmoidoscopy] [facility] Future Scheduled Test 1972 00:00:00 Screening for malignant neoplasm of breast (procedure) [code = 114145894] [facility] Future Scheduled Test 1972 00:00:00 CT Colonography (combo) [code = CT Colonography (combo)] [facility] Future Scheduled Test 1972 00:00:00 Screening for malignant neoplasm of colon (procedure) [code = 505099330] [facility] Future Scheduled Test 1972 00:00:00 Screening for malignant neoplasm of colon (procedure) [code = 446198078] [facility] Future Scheduled Test 1972 00:00:00 Screening for malignant neoplasm of colon (procedure) [code = 260030011] [facility] Future Scheduled Test 1972 00:00:00 Screening for malignant neoplasm of colon (procedure) [code = 508403549] [facility] Future Scheduled Test 1972 00:00:00 Sigmoidoscopy [code = Sigmoidoscopy] [facility] Future Scheduled Test 1972 00:00:00 Screening for malignant neoplasm of breast (procedure) [code = 257315519] [facility] Future Scheduled Test 1972 00:00:00 CT Colonography (combo) [code = CT Colonography (combo)] [facility] Future Scheduled Test 1972 00:00:00 Screening for malignant neoplasm of colon (procedure) [code = 537976906] [facility] Future Scheduled Test 1972 00:00:00 Screening for malignant neoplasm of colon (procedure) [code = 857470896] [facility] Future Scheduled Test 1972 00:00:00 Screening for malignant neoplasm of colon (procedure) [code = 733222496] [facility] Future Scheduled Test 1972 00:00:00 Screening for malignant neoplasm of colon (procedure) [code = 740178565] [facility] Future Scheduled Test 1972 00:00:00 Sigmoidoscopy [code = Sigmoidoscopy] [facility] Future Scheduled Test 1972 00:00:00 Screening for malignant neoplasm of breast (procedure) [code = 876982501] [facility] Future Scheduled Test 1972 00:00:00 CT Colonography (combo) [code = CT Colonography (combo)] [facility] Future Scheduled Test 1972 00:00:00 Screening for malignant neoplasm of colon (procedure) [code = 456902783] [facility] Future Scheduled Test 1972 00:00:00 Screening for malignant neoplasm of colon (procedure) [code = 367933678] [facility] Future Scheduled Test 1972 00:00:00 Screening for malignant neoplasm of colon (procedure) [code = 954163632] [facility] Future Scheduled Test 1972 00:00:00 Screening for malignant neoplasm of colon (procedure) [code = 453966374] [facility] Future Scheduled Test 1972 00:00:00 Sigmoidoscopy [code = Sigmoidoscopy] [facility] Future Scheduled Test 1972 00:00:00 Screening for malignant neoplasm of breast (procedure) [code = 672082891] [facility] Future Scheduled Test 1972 00:00:00 CT Colonography (combo) [code = CT Colonography (combo)] [facility] Future Scheduled Test 1972 00:00:00 Screening for malignant neoplasm of colon (procedure) [code = 435127649] [facility] Future Scheduled Test 1972 00:00:00 Screening for malignant neoplasm of colon (procedure) [code = 105952474] [facility] Future Scheduled Test 1972 00:00:00 Screening for malignant neoplasm of colon (procedure) [code = 054928995] [facility] Future Scheduled Test 1972 00:00:00 Screening for malignant neoplasm of colon (procedure) [code = 270217345] [facility] Future Scheduled Test 1972 00:00:00 Sigmoidoscopy [code = Sigmoidoscopy] [facility] Goal Plan of Care Not e [code = 28028-3] Goal Plan of Care Not e [code = 33479-9] Goal Plan of Care Not e [code = 15040-5] Goal Plan of Care Not e [code = 37343-4] Goal Plan of Care Not e [code = 47818-5] Goal Plan of Care Not e [code = 39089-8] Goal Plan of Care Not e [code = 21290-1] Goal Plan of Care Not e [code = 17219-7] Goal Plan of Care Not e [code = 86506-7] Goal Plan of Care Not e [code = 07726-5] Goal Plan of Care Not e [code = 79405-6] Goal Plan of Care Not e [code = 82493-7] Goal Plan of Care Not e [code = 36855-7] Goal Plan of Care Not e [code = 39634-3] Goal Plan of Care Not e [code = 55508-4] Goal Plan of Care Not e [code = 82207-1] Goal Plan of Care Not e [code = 81589-8] Goal Plan of Care Not e [code = 16149-7] Goal Plan of Care Not e [code = 28953-2] Goal Plan of Care Not e [code = 22325-1] Goal Plan of Care Not e [code = 51973-2] Goal Plan of Care Not e [code = 48777-4] Goal Plan of Care Not e [code = 75014-6] Goal Plan of Care Not e [code = 08226-1] Goal Plan of Care Not e [code = 34387-1] Goal Plan of Care Not e [code = 89059-4] Goal Plan of Care Not e [code = 10818-7] Goal Plan of Care Not e [code = 11453-9] Goal Plan of Care Not e [code = 71261-8] Goal Plan of Care Not e [code = 58164-9] Goal Plan of Care Not e [code = 12563-5] Goal Plan of Care Not e [code = 66288-1] Goal Plan of Care Not e [code = 56998-8] Goal Plan of Care Not e [code = 18472-2] Goal Plan of Care Not e [code = 98182-8] Encounters Start Date/Time End Date/Time Encounter Type Admission Type Attending [facility] Department Encounter ID Source 2023-09-07 10:11:03 Inpatient PANKAJ PARRISH [facility] [id number] [facility] 2023-09-05 10:08:27 Inpatient PANKAJ PARRISH [facility] [id number] [facility] 2023-09-05 10:05:12 Inpatient PANKAJ PARRSIH [facility] [id number] [facility] 2023-09-04 04:51:30 Inpatient PANKAJ PARRISH [facility] [id number] [facility] 2023-09-04 04:14:55 Inpatient PANKAJ PARRISH [facility] [id number] [facility] 2023-09-04 03:08:45 Inpatient PANKAJ PARRISH [facility] [id number] [facility] 2023-09-04 02:36:28 [facility] [id number] [facility] 2023-06-16 09:32:36 Inpatient AYDEE DICKENS [facility] [id number] [facility] 2023-06-16 09:32:09 Inpatient AYDEE DICKENS [facility] [id number] [facility] 2023-06-16 09:31:53 [facility] [id number] [facility] 2023-06-14 07:46:02 Inpatient AYDEE DICKENS [facility] [id number] [facility] 2023-06-14 07:39:22 Inpatient NICOLETTE ARIAYDEE Galan [facility] [id number] [facility] 2023-06-14 06:38:38 In[facility] [id number] [facility] 2023-06-13 13:44:18 Inpatient [facility]ELA [facility]UR[facility] [id number] [facility] 2023-06-13 11:45:24 Inpatient [facility] [id number] [facility] 2023-05-08 11:21:00 Outpatient EL ADAM GARCIA [facility] Surgery [id number] [facility] 2023-04-01 14:26:29 Inpatient ER [facility] [id number] [facility] 2023-03-31 09:24:52 Inpatient ER [facility] [id number] [facility] 2021-05-20 18:48:04 Emergency [facility] [id number] [facility] 2021-05-20 12:43:40 Emergency [facility] [id number] [facility] 2024-04-14 11:30:00 2024-04-14 11:30:00 Outpatient GUSTAVO DELANEY [id number] Cynthia Garcia 2024-04-02 20:43:00 2024-04-03 00:56:00 Emergency CHRISSY BISHOP TIMOTHY [facility] [id number] [facility] 2024-04-02 20:43:00 2024-04-03 00:56:00 Emergency Chrissy Mohr [facility] 1.2.840.114 350.1.13.10 4.2.7.2.686 [id number] [facility] 2024-03-08 00:00:00 2024-03-08 00:00:00 Outpatient MD CYNTHIA MARLEY [id number] [facility] 2024-01-14 00:00:00 2024-02-20 18:26:15 Patient Secure Msg Doctor Unassigned, Ranson [facility] 1.2.840.114 350.1.13.10 4.2.7.2.686 [id number] [facility] 2024-02-19 00:00:00 2024-02-19 00:00:00 Outpatient GUSTAVO DELANEY [id number] Cyn[facility] 2024-02-16 10:15:00 2024-02-16 10:15:00 Outpatient MORALES BALL [id number] [facility] 2024-01-13 00:00:00 2024-02-13 18:19:27 Patient Secure Msg Doctor Unassigned, [place] [facility] 1.2.840.114 350.1.13.10 4.2.7.2.686 [id number] [facility] 2024-01-12 22:04:00 2024-01-13 00:00:00 Emergency X RADHA WYATT BRENT [facility] ERT [id number] [facility] 2024-01-12 22:04:00 2024-01-13 00:00:00 Emergency Radha Wyatt [facility] 1.2.840.114 350.1.13.10 4.2.7.2.686 [id number] [facility] 2024-01-12 00:00:00 2024-01-12 16:22:23 Transition of Care Veronique Carrillo 1.2.840.114 350.1.13.10 4.2.7.2.686 [id number] [facility] 2024-01-09 16:11:00 2024-01-10 15:56:00 Outpatient X DARRICK ALTAMIRANO [facility] [id number] [facility] 2024-01-09 16:11:00 2024-01-10 15:56:00 Hospital Encounter Olena Del Castillo K Paige Khan, Mohammad A. [facility] 1.2.840.114 350.1.13.10 4.2.7.2.686 [id number] [facility] 2023-12-17 00:00:00 2023-12-17 00:00:00 Transition of Care Jodi Berg 1.2.840.114 350.1.13.10 4.2.7.2.686 [id number] [facility] 2023-12-14 13:34:00 2023-12-15 11:08:00 Outpatient X TAL BENAVIDEZ [facility] [id number] [facility] 2023-12-14 13:34:00 2023-12-15 11:08:00 Emergency Mj Bryan [facility] 1.2.840.114 350.1.13.10 4.2.7.2.686 [id number] [facility] 2023-12-07 00:00:00 2023-12-07 00:00:00 Outpatient GUSTAVO DELANEY [id number] Cynthia Garcia 2023-12-02 13:05:00 2023-12-03 19:00:00 Outpatient X MOJGAN [facility]AL [facility] [id number] [facility] 2023-12-02 13:05:00 2023-12-03 19:00:00 Hospital Encounter Connor Renee Wissam Ibrahim [facility] 1.2.840.114 350.1.13.10 4.2.7.2.686 [id number] [facility] 2023-12-01 00:00:00 2023-12-01 10:40:26 Transition of Care Madeline Mckinley 1.2.840.114 350.1.13.10 4.2.7.2.686 [id number] [facility] 2023-11-30 00:00:00 2023-11-30 10:41:56 Transition of Care Madeline Mckinley 1.2.840.114 350.1.13.10 4.2.7.2.686 [id number] [facility] 2023-11-21 21:12:00 2023-11-28 16:01:00 Inpatient X MADELINE PIERRE [facility] [id number] [facility] 2023-11-21 21:12:00 2023-11-28 16:01:00 Hospital Encounter Madeline Pierre Donnell Khan, Rizwan Al Hemyari, Ryder Davis [facility] 1.2.840.114 350.1.13.10 4.2.7.2.686 [id number] [facility] 2023-11-26 14:15:00 2023-11-26 14:15:00 Outpatient AARON LEDESMA [id number] Cynthia Garcia 2023-11-23 13:45:00 2023-11-23 14:45:00 Surgery Cris Molina [facility] 1.2.840.114 350.1.13.10 4.2.7.2.686 [id number] [facility] 2023-11-18 00:00:00 2023-11-18 00:00:00 Outpatient EFRA BABCOCK CYNTHIA MTZ [id number] [facility] 2023-11-15 00:00:00 2023-11-15 00:00:00 Outpatient CYNTHIA MTZ [id number] [facility] 2023-11-15 00:00:00 2023-11-15 00:00:00 Outpatient CYNTHIA MTZ [id number] [facility] 2023-11-15 00:00:00 2023-11-15 00:00:00 Outpatient CYNTHIA MTZ [id number] Cynthia [facility] 2023-11-12 15:15:00 2023-11-12 15:15:00 [facility] [id number] [facility]:00:00 2023-11-12 00:00:00 Outpatient CYNTHIA MTZ [id number] Cynthia [facility] 2023-11-10 09:30:00 2023-11-10 09:30:00 Outpatient MYLA LIEBERMAN [id number] [facility] 2023-11-09 00:00:00 2023-11-09 00:00:00 Outpatient HALINA DELANEYAND CYNTHIA MTZ [id number] [facility] 2023-11-09 00:00:00 2023-11-09 00:00:00 Outpatient MYLA LIEBERMAN [id number] [facility] 2023-11-07 17:51:00 2023-11-07 22:04:00 Emergency ER JUANY [facility] [id number] [facility] 2023-11-07 17:51:00 2023-11-07 22:04:00 emergency [facility] [id number] 2023-11-05 00:00:00 2023-11-05 00:00:00 Outpatient TIFFANY PUENTE [id number] [facility]23-[facility]-03 00:00:00 2023-11-03 00:00:00 Outpatient CYNTHIA MTZ [id number] Cyn[facility] 2023-10-29 00:00:00 2023-10-29 00:00:00 Outpatient GUSTAVO DELANEY [id number] [facility] 2023-10-26 00:00:00 2023-10-26 00:00:00 Outpatient EFRA BABCOCK [id number] Cyn[facility] 2023-10-22 00:00:00 2023-10-22 00:00:00 Outpatient GUSTAVO DELANEY [id number] [facility] 2023-10-16 11:10:00 2023-10-16 11:10:00 Outpatient SIDDHARTH STANFORD [id number] [facility] 2023-10-15 00:00:00 2023-10-15 00:00:00 Outpatient MD CYNTHIA MARLEY [id number] [facility] 2023-10-15 00:00:00 2023-10-15 00:00:00 Outpatient MARGOT GUILLEN [id number] [facility] 2023-10-15 00:00:00 2023-10-15 00:00:00 Outpatient MARGOT GUILLEN [id number] [facility] 2023-10-06 10:45:00 2023-10-06 10:45:00 Outpatient SARAI JULES [id number] [facility] 2023-10-05 11:30:00 2023-10-05 11:30:00 Outpatient GUSTAVO DELANEY [id number] [facility] 2023-10-01 00:00:00 2023-10-01 00:00:00 Outpatient GUSTAVO DELANEY [id number] [facility] 2023-09-30 14:15:00 2023-09-30 14:15:00 Outpatient GUSTAVO DELANEY CYNTHIA [id number] [facility] 2023-09-24 00:00:00 2023-09-24 00:00:00 Outpatient PREZAGUSTAVO Alexander CYNTHIA [id number] [facility] 2023-09-23 00:00:00 2023-09-23 00:00:00 Outpatient CINDI TIFFANY MTZ [id number] [facility] 2023-09-22 00:00:00 2023-09-22 00:00:00 Outpatient GUSTAVO DELANEY CYNTHIA [id number] [facility] 2023-09-22 00:00:00 2023-09-22 00:00:00 Outpatient MARGOT GUILLEN CYNTHIA [id number] [facility] 2023-09-16 00:00:00 2023-09-16 00:00:00 Outpatient PREGUSTAVO VILLANUEVA CYNTHIA MTZ [id number] [facility] 2023-09-16 00:00:00 2023-09-16 00:00:00 Outpatient PREGUSTAVO VILLANUEVA CYNTHIA [id number] [facility] 2023-09-16 00:00:00 2023-09-16 00:00:00 Outpatient PRECHRISTIANSGUSTAVO CYNTHIA [id number] [facility] 2023-09-14 00:00:00 2023-09-14 00:00:00 Outpatient MARGOT GUILLEN CYNTHIA MTZ [id number] [facility] 2023-09-14 00:00:00 2023-09-14 00:00:00 Outpatient MARGOT GUILLEN CYNTHIA MTZ [id number] [facility] 2023-09-11 11:00:00 2023-09-11 11:00:00 Outpatient YONATAN LORENZO [id number] [facility] 2023-09-09 00:00:00 2023-09-09 00:00:00 Outpatient CYNTHIA MTZ [id number] [facility] 2023-09-04 00:14:00 2023-09-08 10:51:00 Inpatient ER EDWARD FERRER Neurosurger y [id number] [facility] 2023-09-04 00:14:00 2023-09-08 10:51:00 Hospital Encounter London LoyolaRaPankaj Altamirano Edward Sosa [facility] [id number] [facility] 2023-09-04 00:14:00 2023-09-08 10:51:00 Hospital Encounter ER London LoyolaPankajEdward larson Maria [facility] [id number] [facility] 2023-09-07 18:41:43 2023-09-07 18:41:43 [facility] [id number] [facility] 2023-09-03 20:52:00 2023-09-03 23:44:00 Emergency ER JUANY [facility] [id number] [facility] 2023-09-03 20:52:00 2023-09-03 23:44:00 emergency [facility] [id number] 2023-09-02 00:00:00 2023-09-02 00:00:00 Outpatient TIFFANY PUENTE [id number] [facility] 2023-09-01 15:30:00 2023-09-01 15:30:00 Outpatient DEMETRIUS TOBAR [id number] [facility] 2023-08-19 00:00:00 2023-08-19 00:00:00 Outpatient QUIN CALVILLO [facility] [id number] [facility] 2023-08-13 00:00:00 2023-08-13 00:00:00 Orders Only Quin Scruggs [facility] [id number] [facility] 2023-08-13 00:00:00 2023-08-13 00:00:00 Orders Only Quin Scruggs [facility] [id number] [facility] 2023-08-12 13:49:00 2023-08-12 16:12:00 Emergency X MJ BRYAN [facility] ERT [id number] [facility] 2023-08-12 13:49:00 2023-08-12 16:12:00 Emergency Mj Bryan [facility] 1.2.840.114 350.1.13.10 4.2.7.2.686 [id number] [facility] 2023-06-13 03:43:00 2023-06-16 19:45:00 Inpatient ER AYDEE GO [facility] Internal Med [id number] [facility] 2023-06-13 03:43:00 2023-06-16 19:45:00 Hospital Encounter Marianela Burgess Sahar [facility] [id number] [facility] 2023-06-13 03:43:00 2023-06-16 19:45:00 Hospital Encounter ER Marianela Burgess Sahar [facility] [id number] [facility] 2023-06-15 00:00:00 2023-06-15 00:00:00 Orders Only Provider, Not In System [facility] [id number] [facility] 2023-06-15 00:00:00 2023-06-15 00:00:00 Orders Only Provider, Not In System [facility] [id number] [facility] 2023-06-13 16:30:06 2023-06-13 16:30:06 Outpatient EL AYDEE GO [facility] [id number] [facility] 2023-06-13 00:00:00 2023-06-13 00:00:00 Orders Only [facility] [id number] [facility] 2023-06-13 00:00:00 2023-06-13 00:00:00 Travel [facility] [id number] [facility] 2023-06-13 00:00:00 2023-06-13 00:00:00 Orders Only [facility] [id number] [facility] 2023-06-13 00:00:00 2023-06-13 00:00:00 Travel [facility] [id number] [facility] 2023-06-12 00:00:00 2023-06-12 00:00:00 Telephone Dallas Gomez [facility] [id number] [facility] 2023-06-12 00:00:00 2023-06-12 00:00:00 Telephone GomezDallas [facility] [id number] [facility] 2023-05-28 06:45:00 2023-06-04 17:36:00 Inpatient ADAM BRANTLEY [facility] Surgery [id number] [facility] 2023-05-28 06:45:00 2023-06-04 17:36:00 Hospital Encounter Jose Adam [facility] [id number] [facility] 2023-05-28 06:45:00 2023-06-04 17:36:00 Hospital Encounter Doni Brantleyin [facility] [id number] [facility] 2023-06-01 09:10:00 2023-06-01 13:00:00 Anesthesia Event IsmaelHarry chaudhry Mujtaba [facility] [id number] [facility] 2023-06-01 09:10:00 2023-06-01 13:00:00 Anesthesia Event MercedezHarry Mujtaba [facility] [id number] [facility] 2023-06-01 09:00:00 2023-06-01 11:30:00 Surgery JoseAdam [facility] [id number] [facility] 2023-06-01 09:00:00 2023-06-01 11:30:00 Surgery Adam Garcia [facility] [id number] [facility] 2023-06-01 09:47:57 2023-06-01 09:47:57 Outpatient ADAM BRANTLEY [facility] [id number] [facility] 2023-06-01 09:40:34 2023-06-01 09:40:34 Outpatient ADAM BRANTLEY [facility] [id number] [facility] 2023-05-31 09:25:55 2023-05-31 23:59:00 Inpatient ADAM BRANTLEY [facility] [id number] [facility] 2023-05-31 09:00:00 2023-05-31 23:59:00 Hospital Encounter Adam Garcia [facility] [id number] [facility] 2023-05-31 09:00:00 2023-05-31 23:59:00 Hospital Encounter Adam Garcia [facility] [id number] [facility] 2023-05-28 18:15:29 2023-05-28 18:15:29 Outpatient ADAM BRANTLEY [facility] [id number] [facility] 2023-05-28 08:30:00 2023-05-28 11:54:00 Anesthesia Event RamyaYue [facility] [id number] [facility] 2023-05-28 08:30:00 2023-05-28 11:54:00 Anesthesia Event Ramya, Yue [facility] [id number] [facility] 2023-05-28 11:41:14 2023-05-28 11:41:14 Outpatient ADAM BRANTLEY [facility] [id number] [facility] 2023-05-28 08:30:00 2023-05-28 11:00:00 Surgery Adam Garcia [facility] [id number] [facility] 2023-05-28 08:30:00 2023-05-28 11:00:00 Surgery Adam Garcia [facility] [id number] [facility] 2023-05-28 10:00:47 2023-05-28 10:00:47 Outpatient ADAM BRANTLEY [facility] [id number] [facility] 2023-05-28 00:00:00 2023-05-28 00:00:00 Travel [facility] [id number] [facility] 2023-05-28 00:00:00 2023-05-28 00:00:00 Travel [facility] [id number] [facility] 2023-05-26 09:00:00 2023-05-26 09:00:00 Hospital Encounter Adam Garcia [facility] [id number] [facility] 2023-05-26 00:00:00 2023-05-26 00:00:00 Outpatient EL ADAM GARCIA [facility] SLE [id number] [facility] 2023-05-26 00:00:00 2023-05-26 00:00:00 Outpatient NICOLETTE [facility] SLE [id number] [facility] 2023-05-26 00:00:00 2023-05-26 00:00:00 Travel [facility] [id number] [facility] 2023-05-26 00:00:00 2023-05-26 00:00:00 Travel [facility] [id number] [facility] 2023-05-13 11:43:03 2023-05-13 11:43:03 Outpatient SFA SFA Tanesha5 Adria Martínez 2023-05-12 00:00:00 2023-05-12 00:00:00 Orders Only Adam Garcia [facility] [id number] [facility] 2023-05-12 00:00:00 2023-05-12 00:00:00 Orders Only Adam Garcia [facility] [id number] [facility] 2023-05-08 14:11:21 2023-05-08 14:11:21 Outpatient SFA SFA Tanesha0 Adria Martínez 2023-03-29 19:25:00 2023-04-02 20:48:00 Inpatient ER THOMAS LOZOYA [facility] Neurology [id number] [facility] 2023-03-29 19:25:00 2023-04-02 20:48:00 Hospital Encounter ER Connie Davey Shireen Kulkarni, Mrinalini Z [facility] [id number] [facility] 2023-03-31 08:32:56 2023-03-31 00:00:00 Inpatient ER MARIAH ALDRIDGE [facility] [id number] [facility] 2023-03-30 10:24:12 2023-03-30 23:59:00 Outpatient ER CONNIE DAVEY SLERigoberto [facility] [id number] [facility] 2023-03-30 09:40:00 2023-03-30 23:59:00 Hospital Encounter Connie Davey [facility] [id number] [facility] 2023-03-30 13:46:20 2023-03-30 13:46:20 Outpatient ER MARIAH ALDRIDGE SLERigoberto [facility] [id number] [facility] 2023-03-30 13:46:14 2023-03-30 13:46:14 Outpatient ER MARIAH ALDRIDGE [facility] [id number] [facility] 2023-03-30 10:24:04 2023-03-30 10:24:04 Outpatient ER CONNIE DAVEY [facility] [id number] [facility] 2023-03-30 00:00:00 2023-03-30 00:00:00 Orders Only [facility] [id number] [facility] 2023-03-30 00:00:00 2023-03-30 00:00:00 Travel [facility] [id number] [facility] 2022-12-11 08:56:00 2022-12-11 15:29:00 Emergency X Alfonso ALVARADO [facility] ERT [id number] [facility] 2022-12-11 08:56:00 2022-12-11 15:29:00 Emergency Alfonso Alvarado [facility] 1.2.840.114 350.1.13.10 4.2.7.2.686 [id number] [facility] 2022-11-17 17:25:00 2022-11-18 01:19:00 Emergency X RITCHIE WARREN [facility] ERT [id number] [facility] 2022-11-17 17:25:00 2022-11-18 01:19:00 Emergency Ritchie Warren [facility] 1.2.840.114 350.1.13.10 4.2.7.2.686 [id number] [facility] 2022-08-28 00:00:00 2022-08-28 00:00:00 Patient Outreach Margot Beckman 1.2.840.114 350.1.13.10 4.2.7.2.686 [id number] [facility] 2022-08-20 00:00:00 2022-08-20 00:00:00 Patient Outreach Margot Beckman 1.2.840.114 350.1.13.10 4.2.7.2.686 [id number] [facility] 2022-08-02 17:30:00 2022-08-03 14:29:00 Outpatient ER PARRISH DIANE [facility] Neurology [id number] [facility] 2022-08-02 17:30:00 2022-08-03 14:29:00 Hospital Encounter ER Halima Mendoza Kinjal M Ibe, Chimkama Ngozi Cynthia [facility] [id number] [facility] 2022-08-03 00:00:00 2022-08-03 00:00:00 Orders Only [facility] [id number] [facility] 2022-08-02 00:00:00 2022-08-02 00:00:00 Travel [facility] [id number] [facility] 2022-07-31 11:42:00 2022-08-01 21:48:00 Inpatient X SERGIOBENJAMÍN DAMI [facility] SHEA [id number] [facility] 2022-07-31 11:42:00 2022-08-01 21:48:00 Hospital Encounter Megan Rondon PablitoDami vega [facility] 1.2.840.114 350.1.13.10 4.2.7.2.686 [id number] [facility] 2022-08-01 00:00:00 2022-08-01 00:00:00 Transition of Care Maria Teresa Nicole 1.2.840.114 350.1.13.10 4.2.7.2.686 [id number] [facility] 2022-07-28 14:41:38 2022-07-28 14:41:[address] [facility] 9 Adria Martínez 2022-07-28 00:00:00 2022-07-28 00:00:00 Outpatient Visit [id number] 2022-07-24 13:24:40 2022-07-24 13:24:[address] [facility] 5 Adria Galan Mauricio 2022-05-23 14:51:01 2022-05-23 14:51:[address] [facility] 1104 Adria Galan Mauricio 2022-05-23 00:00:00 2022-05-23 00:00:00 Outpatient Visit [id number] 2022-05-04 20:22:00 2022-05-08 14:44:00 Outpatient X CHANTEL BOJORQUEZ PABLO [facility] [id number] [facility] 2022-05-04 20:22:00 2022-05-08 14:44:00 Emergency Brandyn Ibrahim Pablo [facility] 1.2840.114 350.1.13.10 4.2.7.2.686 [id number] [facility] 2022-04-13 13:06:00 2022-04-15 15:00:00 Inpatient X CONRAD [facility] [id number] [facility] 2022-04-13 13:06:00 2022-04-15 15:00:00 Hospital Encounter Sapna Vargas Muhammad Zeeshan [facility] 1.2840.114 350.1.13.10 4.2.7.2.686 [id number] [facility] 2022-02-19 10:20:00 2022-02-19 10:30:00 Imm/Inj Visit [facility] Moore Jose Santiago [facility] 1.840.114 350.1.13.10 4.2.7.2.686 [id number] [facility] 2022-02-19 10:20:00 2022-02-19 10:20:00 Outpatient R JOSE PAK [facility] [id number] [facility] 2021-11-23 15:07:00 2021-11-23 17:03:00 Emergency X WILLIAMS VIRK [facility] ERT [id number] [facility] 2021-11-23 15:07:00 2021-11-23 17:03:00 Emergency Megan Rondon Folusho F [facility] 1.84.114 350.1.13.10 4.2.7.2.686 [id number] [facility] 2021-11-21 09:40:00 2021-11-21 09:40:00 Outpatient R [facility] [id number] [facility] 2021-05-24 09:30:00 2021-05-24 09:30:00 Outpatient JOSE MENDOZA [facility] [id number] [facility] 2021-05-24 08:47:51 2021-05-24 08:57:51 Imm/Inj Visit Vaccine Moore Dangelo Pak [facility] 1.2.840.114 350.1.13.10 4.2.7.2.686 [id number] [facility] 2021-05-03 09:40:00 2021-05-03 09:59:35 Outpatient JOSE MENDOZA [facility] [id number] [facility] 2021-05-03 09:17:43 2021-05-03 09:59:35 Imm/Inj Visit Vaccine, Moore Dangelo Pak [facility] 1.2.840.114 350.1.13.10 4.2.7.2.686 [id number] [facility] 2021-04-16 00:00:00 2021-04-16 00:00:00 Orders Only Doctor Unassigned, Ranson [facility] 1.2.840.114 350.1.13.10 4.2.7.2.686 [id number] [facility] 2021-03-17 00:00:00 2021-03-17 00:00:00 Telephone Miky Nava [facility] 1.2.840.114 350.1.13.10 4.2.7.2.686 [id number] [facility] 2021-03-16 20:08:00 2021-03-16 23:24:00 Emergency Fabrice Chakraborty [facility] 1.2.840.114 350.1.13.10 4.2.7.2.686 [id number] [facility] 2021-03-14 18:59:34 2021-03-14 20:19:13 Urgent Care Ebranym, Rania Unknown, Attending [facility] 1.2.840.114 350.1.13.10 4.2.7.2.686 [id number] [facility] 2021-03-14 19:00:00 2021-03-14 19:00:00 Outpatient R UNKNOWN, ATTENDING [facility] [id number] [facility] 2021-02-19 10:49:00 2021-02-19 14:48:00 Emergency Estefania Monroy S [facility] 1.2.840.114 350.1.13.10 4.2.7.2.686 [id number] [facility] 2019-03-09 00:00:00 2019-03-09 00:00:00 Dick IbarraochYehuda stoner [facility] 1.2.840.114 350.1.13.10 4.2.7.2.686 [id number] 2019-03-09 00:00:00 2019-03-09 00:00:00 Yehuda Zimmerman [facility] 1.2.840.114 350.1.13.10 4.2.7.2.686 [id number] [facility] Results Test Description Test Time Test Comments Results Result Co mments Source [facility] (NA, K, CL, CO2, GLUCOSE, BUN, CREATININE, CA)2024-04-03 02:26:01* Test Item Value Reference Range Interpretation Comme nts NA (test code = 6642434227) 136 mmol/L 135-145 K (test code = 2302917444) 3.2 mmol/L 3.5-5.0 L CL (test code = 6315969212) 101 mmol/L 98-108 CO2 TOTAL (test code = 8317416473) 23 mmol/L 23-31 AGAP (test code = 4672357753) 12 2-16 BUN (test code = 3291146511) 4 mg/dL 7-23 L GLUCOSE (test code = 3637238861) 165 mg/dL 70-110 H CREATININE (test code = 2160-0) 0.67 mg/dL 0.50-1.04 CALCIUM (test code = 0952456323) 8.5 mg/dL 8.6-10.6 L eGFR (test code = 22495-5) 105.3 mL/min/1.73m2 CKD-EPI eGFR (2020). Assuming creatinine has been stable day-to-day for at least three months, the eGFR indicates Category G1 (>= 90 mL/min/1.73 m2) Lab Interpretation (test code = 55851-2) Abnormal [facility] with Qbun5446-19-43 02:19:04* Test Item Value Reference Range Interpretation Comme nts WBC (test code = 6690-2) 6.94 4.30-11.10 RBC (test code = 789-8) 4.51 3.93-5.25 HGB (test code = 718-7) 10.8 g/dL 11.6-15.0 L HCT (test code = 4544-3) 37.0 % 35.7-45.2 MCV (test code = 787-2) 82.0 fL 80.6-95.5 MCH (test code = 785-6) 23.9 pg 25.9-32.8 L MCHC (test code = 786-4) 29.2 g/dL 31.6-35.1 L RDW-SD (test code = 71566-2) 53.9 fL 39.0-49.9 H RDW-CV (test code = 788-0) 18.2 % 12.0-15.5 H PLT (test code = 777-3) 458 166-358 H MPV (test code = 59663-6) 8.6 fL 9.5-12.9 L NRBC/100 WBC (test code = 3162747256) 0.0 0.0-10.0 NRBC x10^3 (test code = 8713722307) See_Comment [Automated [employer] ge] The system which generated this result transmitted reference range: 10*3/?L. The reference range was not used to interpret this result as normal/abnormal. GRAN MAT (NEUT) % (test code = 770-8) 62.8 % IMM GRAN % (test code = 5771606358) 0.40 % LYMPH % (test code = 736-9) 28.0 % MONO % (test code = 5905-5) 6.5 % EOS % (test code = 713-8) 1.3 % BASO % (test code = 706-2) 1.0 % GRAN MAT x10^3(ANC) (test code = 3701112575) 4.36 10*3/uL 1.88-7.09 IMM GRAN x10^3 (test code = 0947621468) 0.03 10*3/uL 0.00-0.06 LYMPH x10^3 (test code = 731-0) 1.94 10*3/uL 1.32-3.29 MONO x10^3 (test code = 742-7) 0.45 10*3/uL 0.33-0.92 EOS x10^3 (test code = 711-2) 0.09 10*3/uL 0.03-0.39 BASO x10^3 (test code = 704-7) 0.07 10*3/uL 0.01-0.07 Lab Interpretation (test code = 63346-7) Abnormal [facility] Whole Dlcmc4727-62-06 02:05:20* Test Item Value Reference Range Interpretation Comme nts LACTIC ACID (test code = 7344392364) 2.61 mmol/L 0.50-2.20 H Lab Interpretation (test cod e = 04243-8) Abnormal [facility] [id number] 04:25:23* Test Item Value Reference Range Interpretation Comme nts TROPONIN I (test code = 4963866904) 0.004 ng/mL <=0.034 LYNDSAY (test code = LYNDSAY) [...] of biotin. Lab Interpretation (test code = 47770-0) Normal [facility]. Metabolic Panel (08503)2024-01-13 04:13:41* Test Item Value Reference Range Interpretation Comme nts NA (test code = 0715375840) 140 mmol/L 135-145 K (test code = 9440020967) 3.7 mmol/L 3.5-5.0 CL (test code = 3990925417) 103 mmol/L 98-108 CO2 TOTAL (test code = 5150597885) 25 mmol/L 23-31 AGAP (test code = 6404742174) 12 2-16 BUN (test code = 1512724055) 12 mg/dL 7-23 GLUCOSE (test code = 0084628509) 143 mg/dL 70-110 H CREATININE (test code = 2160-0) 0.91 mg/dL 0.50-1.04 TOTAL BILI (test code = 2028847611) 0.4 mg/dL 0.1-1.1 CALCIUM (test code = 0674225530) 9.0 mg/dL 8.6-10.6 T PROTEIN (test code = 8193614894) 7.7 g/dL 6.3-8.2 ALBUMIN (test code = 4169426502) 4.2 g/dL 3.5-5.0 ALK PHOS (test code = 0211921882) 93 U/L 34-122 ALTv (test code = 1742-6) 9 U/L 5-35 AST(SGOT) (test code = 2656880151) 18 U/L 13-40 eGFR (test code = 03597-3) 76.5 mL/min/1.73m2 CKD-EPI eGFR (2020). Assuming creatinine has been stable day-to-day for at least three months, the eGFR indicates Category G2 (60 - 89 mL/min/1.73 m2) Lab Interpretation (test code = 57099-4) Abnormal [facility] with Izoo9519-43-00 03:58:19* Test Item Value Reference Range Interpretation [...] g/dL 31.6-35.1 L RDW-SD (test code = 03729-3) 59.0 fL 39.0-49.9 H RDW-CV (test code = 788-0) 18.7 % 12.0-15.5 H PLT (test code = 777-3) 394 166-358 H MPV (test code = 11878-2) 8.5 fL 9.5-12.9 L NRBC/100 WBC (test code = 4881599763) 0.0 0.0-10.0 NRBC x10^3 (test code = 4765391347) See_Comment [Automated messa ge] The system which generated this result transmitted reference range: 10*3/?L. The reference range was not used to interpret this result as normal/abnormal. GRAN MAT (NEUT) % (test code = 770-8) 60.6 % IMM GRAN % (test code = 2270726494) 1.40 % LYMPH % (test code = 736-9) 26.9 % MONO % (test code = 5905-5) 8.7 % EOS % (test code = 713-8) 1.8 % BASO % (test code = 706-2) 0.6 % GRAN MAT x10^3(ANC) (test code = 9364247020) 5.14 10*3/uL 1.88-7.09 IMM GRAN x10^3 (test code = 7198500351) 0.12 10*3/uL 0.00-0.06 H LYMPH x10^3 (test code = 731-0) 2.28 10*3/uL 1.32-3.29 MONO x10^3 (test code = 742-7) 0.74 10*3/uL 0.33-0.92 EOS x10^3 (test code = 711-2) 0.15 10*3/uL 0.03-0.39 BASO x10^3 (test code = 704-7) 0.05 10*3/uL 0.01-0.07 Lab Interpretation (test code = 74085-2) Abnormal [facility]E)2024-01-10 16:40:03* Test Item Value Reference Range Interpretation Comme nts Height (test code = 6173500948) 62 in Weight (test code = 0228896674) 200 lbs Systolic BP (test code = 8559188354) 90 mmHg Diastolic BP (test code = 6103520859) 66 mmHg Heart Rate (test code = 9304282673) 69 bpm BSA (test code = 5997427592) 1.91 m2 LVOT diameter (test code = 1441297285) 2.13 cm LVOT area (test code = 0323464406) 3.60 cm2 LA size (test code = 2630395673) 3.5 cm LAV(MOD-sp4) (test code = 2035175195) 55.70 mL E wave decelartion time (test code = 5386016997) 0.12 s MV stenosis pressure 1/2 time (test code = 8129687414) 35.0 ms MV Peak A Evette (test code = 6772100079) 117.0 cm/s MV Peak E Evette (test code = 9221880200) 94.3 cm/s E/A ratio (test code = 9471721749) 0.81 ratio MV E/e' septal (test code = 1043496680) 10.2 cm/s LVOT stroke volume (test code = 8883424768) 59.50 cm3 LVOT peak evette (test code = 0323147892) 99.8 cm/s LVOT mn grad (test code = 2607484802) 1.9 mmHg AV LVOT peak gradient (test code = 1341328900) 4.0 mmHg LVOT peak VTI (test code = 2052120129) 16.7 cm LV V1 mean (test code = 1616393618) 64.40 cm/s Aortic valve mean velocity (test code = 9452903026) 155.3 cm/s Ao peak evette (test code = 2145580421) 222.6 cm/s Ao VTI (test code = 0933693097) 33.6 cm AV area by cont VTI (test code = 8933535057) 1.8 cm2 AV area peak evette (test code = 0605771292) 1.6 cm2 Ao max PG (test code = 3153130036) 19.80 mm[Hg] AV peak gradient (test code = 6308388459) 19.8 mmHg AV valve area (test code = 8077705644) 1.77 cm2 AV mean gradient (test code = 7497660537) 10.6 mmHg AV regurgitation pressure 1/2 time (test code = 9317725691) 651.6 ms AI dec slope (test code = 2525257146) 180.60 cm/s2 AI max evette (test code = 7929891695) 401.80 cm/s AI max PG (test code = 1635008580) 64.60 mm[Hg] LVIDD (test code = 3553355532) 4.90 cm Left Ventricular End Diastolic Volume by Teichholz Method (test code = 2673597) 114.6 mL IVS (test code = 2983044844) 1.17 cm Interventricular Septum Diastolic Thickness by 2D (test code = 9416438) 1.17 cm LVPWD (test code = 9112365081) 1.17 cm PW (test code = 2735520305) 1.17 cm 0.6-1.1 EF(Teich) (test code = 6035707074) 20.70 % LVIDS (test code = 3097570378) 4.50 cm Left Ventricular End Systolic Volume by Teichholz Method (test code = 6139762) 90.9 mL FS (test code = 5513285978) 9 % EF - 2D (test code = 27302824) 20.70 % Radiology Study observation (narrative) (test code = 58853-0) LYNDSAY (test code = LYNDSAY) ?Left?Ventricle: Left [...] mL of Optison ultrasound enhancing agent used. [facility] [id number] 02:02:28* Test Item Value Reference Range Interpretation Comme nts LACTIC ACID (test code = 1746485915) 1.36 mmol/L 0.50-2.20 Lab Interpretation (test cod e = 17646-7) Normal [facility]ULMONARY [id number] 01:16:45CTA CHEST WITH IV CONTRAST ORDERING PHYSICIAN: [...] adenoma. ACDF hardware in the lower cervical spine.[facility] 1 [id number] 23:07:58Exam: Chest (1 View), 01/09/2024 4:15 PM. Ordering Physician: OLENA DEL CASTILLO. History: Chest Pain. Technique: One view of the chest. Comparison: 12/14/2023. Findings: Cardiac silhouette is mildly enlarged. There is no pneumothorax. There isno consolidation or pleural effusion. Pleural and diaphragmatic contoursare normal. Calcified granuloma is seen in the left upper lobe. Changes ofanterior cervical discectomy and fusion are seen.[facility]anoTROP[facility] [id number] 22:51:19* Test Item Value Reference Range Interpretation Comme nts TROPONIN I (test code = 5692321988) 0.006 ng/mL <=0.034 LYNDSAY (test code = [...] of biotin. Lab Interpretation (test code = 02269-5) Normal [facility]anoN-TERMINAL [id number] 22:48:38* Test Item Value Reference Range Interpretation Comme nts NT-proBNP (test code = 88364-2) 877 pg/mL <=125 LYNDSAY (test code = LYNDSAY) Result Indeterminate-Consid er causes of NT-proBNP elevation other than Heart failure such as acute coronary syndrome, pulmonary embolism, pulmonary hypertension, sepsis, stroke, and renal dysfunction. Lab Interpretation (test code = 78291-0) Abnormal [facility]anoCOMP. METABOLIC PANEL ([id number] 22:42:20* Test Item Value Reference Range Interpretation Comme nts NA (test code = 5712935768) 137 mmol/L 135-145 K (test code = 3015323791) 3.8 mmol/L 3.5-5.0 CL (test code = 4477522568) 104 mmol/L 98-108 CO2 TOTAL (test code = 6793499462) 25 mmol/L 23-31 AGAP (test code = 7193893068) 8 2-16 BUN (test code = 7742665617) 7 mg/dL 7-23 GLUCOSE (test code = 1533194320) 96 mg/dL 70-110 CREATININE (test code = 2160-0) 0.60 mg/dL 0.50-1.04 TOTAL BILI (test code = 6027329168) 0.4 mg/dL 0.1-1.1 CALCIUM (test code = 7559119075) 8.7 mg/dL 8.6-10.6 T PROTEIN (test code = 5061260674) 7.0 g/dL 6.3-8.2 ALBUMIN (test code = 1202303315) 3.9 g/dL 3.5-5.0 ALK PHOS (test code = 7059974678) 101 U/L 34-122 ALTv (test code = 1742-6) 7 U/L 5-35 AST(SGOT) (test code = 0266104728) 20 U/L 13-40 eGFR (test code = 65010-8) 108.8 mL/min/1.73m2 CKD-EPI eGFR (20 21). Assuming creatinine has been stable day-to-day for at least three months, the eGFR indicates Category G1 (>= 90 mL/min/1.73 m2) [facility]anoD-[id number] 22:28:57* Test Item Value Reference Range Interpretation Comments D-DIMER (test code = 5826245216) 0.87 See_Comment H [Automated message] The system [...] a diagnosis. Lab Interpretation (test code = 54915-7) Abnormal [facility] WITH [id number] 22:09:01* Test Item Value Reference Range Interpretation [...] g/dL 31.6-35.1 L RDW-SD (test code = 02264-9) 58.1 fL 39.0-49.9 H RDW-CV (test code = 788-0) 18.6 % 12.0-15.5 H PLT (test code = 777-3) 312 166-358 MPV (test code = 56051-9) 8.3 fL 9.5-12.9 L NRBC/100 WBC (test code = 1165887345) 0.0 0.0-10.0 NRBC x10^3 (test code = 7271375339) See_Comment [Automated messa ge] The system which generated this result transmitted reference range: 10*3/?L. The reference range was not used to interpret this result as normal/abnormal. GRAN MAT (NEUT) % (test code = 770-8) 60.1 % IMM GRAN % (test code = 3713154068) 0.70 % LYMPH % (test code = 736-9) 27.3 % MONO % (test code = 5905-5) 10.1 % EOS % (test code = 713-8) 1.2 % BASO % (test code = 706-2) 0.6 % GRAN MAT x10^3(ANC) (test code = 2495721705) 5.12 10*3/uL 1.88-7.09 IMM GRAN x10^3 (test code = 2320462340) 0.06 10*3/uL 0.00-0.06 LYMPH x10^3 (test code = 731-0) 2.33 10*3/uL 1.32-3.29 MONO x10^3 (test code = 742-7) 0.86 10*3/uL 0.33-0.92 EOS x10^3 (test code = 711-2) 0.10 10*3/uL 0.03-0.39 BASO x10^3 (test code = 704-7) 0.05 10*3/uL 0.01-0.07 Lab Interpretation (test code = 85015-5) [facility]normal [facility] (AUTOMATED)2023-12-15 12:45:21* Test Item Value Reference Range Interpretation Comme nts POCT GLU (test code = 9674937868) 144 mg/dL 70-110 H Lab Interpretation (test cod e = 02839-6) [facility]normal [facility] PlanoThyroid Stimulating [id number] 01:46:59 * Test Item Value Reference Range Interpretation Comme nts TSH (test code = 2971127464) 1.14 0.45-4.70 Lab Interpretation (test cod e = 16218-8) Normal [facility]anoFR [id number] 01:33:00* Test Item Value Reference Range Interpretation Comme nts FREE T3 (test code = 7690208647) 3.68 pg/mL 2.77-5.27 Lab Interpretation (test cod e = 02976-7) Normal [facility]AUTOMATED)2023-12-15 00:57:48* Test Item Value Reference Range Interpretation Comme nts POCT GLU (test code = 1540549588) 131 mg/dL 70-110 H Lab Interpretation (test cod e = 97973-1) Abnormal [facility]anoTroponin [id number] 21:45:52* Test Item Value Reference Range Interpretation Comme nts TROPONIN I (test code = 0483448603) 0.009 ng/mL <=0.034 LYNDSAY (test code = [...] of biotin. Lab Interpretation (test code = 80350-1) Normal [facility]. Metabolic Panel (52720)2023-12-14 20:19:49* Test Item Value Reference Range Interpretation Comme nts NA (test code = 3194267059) 138 mmol/L 135-145 K (test code = 3018600917) 3.5 mmol/L 3.5-5.0 CL (test code = 3397425009) 108 mmol/L 98-108 CO2 TOTAL (test code = 1916132010) 24 mmol/L 23-31 AGAP (test code = 8470444189) 6 2-16 BUN (test code = 5788004981) 7 mg/dL 7-23 GLUCOSE (test code = 7602546793) 96 mg/dL 70-110 CREATININE (test code = 2160-0) 0.51 mg/dL 0.50-1.04 TOTAL BILI (test code = 7264304427) 0.4 mg/dL 0.1-1.1 CALCIUM (test code = 4652463854) 8.6 mg/dL 8.6-10.6 T PROTEIN (test code = 0453066340) 6.8 g/dL 6.3-8.2 ALBUMIN (test code = 0097804344) 3.8 g/dL 3.5-5.0 ALK PHOS (test code = 5378897683) 107 U/L 34-122 ALTv (test code = 1742-6) 13 U/L 5-35 AST(SGOT) (test code = 9329554344) 28 U/L 13-40 eGFR (test code = 75366-6) 113.2 mL/min/1.73m2 CKD-EPI eGFR (20 21). Assuming creatinine has been stable day-to-day for at least three months, the eGFR indicates Category G1 (>= 90 mL/min/1.73 m2) [facility]anoTroponin [id number] 20:15:27* Test Item Value Reference Range Interpretation Comme nts TROPONIN I (test code = 1888750941) 0.009 ng/mL <=0.034 LYNDSAY (test code = [...] of biotin. Lab Interpretation (test code = 33128-3) Normal [facility]anoN-Terminal Qbm-Odr0505-64-27 20:12:51* Test Item Value Reference Range Interpretation Comme nts NT-proBNP (test code = 72847-9) 2250 pg/mL <=125 H LYNDSAY (test code = LYNDSAY) Positive: Heart Failure Likely Lab Interpretation (test code = 10188-1) [facility]normal [facility]XR CHEST 1 [id number] 20:00:17EXAM: XR CHEST 1 VW COMPARISON: 12/02/2023 HISTORY: 53 years-old Female; shortness of breath FINDINGS: Lungs: The lung volumes are normal. Left upper lung calcified granuloma. Nofocal opacities. No pneumothorax. No pleural effusion. Heart/Mediastinum: The cardiac silhouette appears normal. Bones andsoft tissues: No acute osseous findings are detected.Redemonstrated ACDF projecting over the lower cervical spine.[facility]anoD-Dxsmb4218-12-65 19:45:05* Test Item Value Reference Range Interpretation Comments D-DIMER (test code = 8690473700) 1.33 See_Comment H [Automated message] The system [...] a diagnosis. Lab Interpretation (test code = 69993-8) Abnormal [facility] PlanoCbc with [id number] 19:39:29* Test Item Value Reference Range Interpretation [...] g/dL 31.6-35.1 L RDW-SD (test code = 22915-6) 70.2 fL 39.0-49.9 H RDW-CV (test code = 788-0) 21.6 % 12.0-15.5 H PLT (test code = 777-3) 259 166-358 MPV (test code = 66382-6) 8.7 fL 9.5-12.9 L NRBC/100 WBC (test code = 7626837245) 0.0 0.0-10.0 NRBC x10^3 (test code = 1178326516) See_Comment [Automated messa ge] The system which generated this result transmitted reference range: 10*3/?L. The reference range was not used to interpret this result as normal/abnormal. GRAN MAT (NEUT) % (test code = 770-8) 57.7 % IMM GRAN % (test code = 8025280524) 0.40 % LYMPH % (test code = 736-9) 30.2 % MONO % (test code = 5905-5) 9.9 % EOS % (test code = 713-8) 0.8 % BASO % (test code = 706-2) 1.0 % GRAN MAT x10^3(ANC) (test code = 5312518180) 4.17 10*3/uL 1.88-7.09 IMM GRAN x10^3 (test code = 9920513796) 0.03 10*3/uL 0.00-0.06 LYMPH x10^3 (test code = 731-0) 2.19 10*3/uL 1.32-3.29 MONO x10^3 (test code = 742-7) 0.72 10*3/uL 0.33-0.92 EOS x10^3 (test code = 711-2) 0.06 10*3/uL 0.03-0.39 BASO x10^3 (test code = 704-7) 0.07 10*3/uL 0.01-0.07 Lab Interpretation (test code = 43012-2) Abnormal [facility] GLUCOSE (AUTOMATED)2023-12-03 21:30:58* Test Item Value Reference Range Interpretation Comme nts POCT GLU (test code = 7591635577) 102 mg/dL 70-110 Lab Interpretation (test cod e = 19714-5) Normal [facility] Metabolic Panel (NA, K, CL, CO2, GLUCOSE, BUN, CREATININE, CA)2023-12-03 18:22:31* Test Item Value Reference Range Interpretation Comme nts NA (test code = 3255515349) 135 mmol/L 135-145 K (test code = 7734131656) 3.9 mmol/L 3.5-5.0 CL (test code = 0736497512) 103 mmol/L 98-108 CO2 TOTAL (test code = 6500102209) 29 mmol/L 23-31 AGAP (test code = 7644758474) 3 2-16 BUN (test code = 2300937588) 12 mg/dL 7-23 GLUCOSE (test code = 9127741164) 85 mg/dL 70-110 CREATININE (test code = 2160-0) 0.63 mg/dL 0.50-1.04 CALCIUM (test code = 5896348923) 8.7 mg/dL 8.6-10.6 eGFR (test code = 56587-8) 107.6 mL/min/1.73m2 CKD-EPI eGFR (20 21). Assuming creatinine has been stable day-to-day for at least three months, the eGFR indicates Category G1 (>= 90 mL/min/1.73 m2) [facility] GLUCOSE (AUTOMATED)2023-12-03 16:52:56* Test Item Value Reference Range Interpretation Comme nts POCT GLU (test code = 4612226775) 98 mg/dL 70-110 Lab Interpretation (test cod e = 05982-2) Normal [facility] GLUCOSE (AUTOMATED)2023-12-03 13:01:11* Test Item Value Reference Range Interpretation Comme nts POCT GLU (test code = 9222660605) 102 mg/dL 70-110 Lab Interpretation (test cod e = 92249-3) Normal [facility] Metabolic Panel (NA, K, CL, CO2, GLUCOSE, BUN, CREATININE, CA)2023-12-03 10:22:08* Test Item Value Reference Range Interpretation Comme nts NA (test code = 2140895937) 138 mmol/L 135-145 K (test code = 1630512234) 3.2 mmol/L 3.5-5.0 L CL (test code = 3307182073) 105 mmol/L 98-108 CO2 TOTAL (test code = 9539652029) 26 mmol/L 23-31 AGAP (test code = 0116279155) 7 2-16 BUN (test code = 2719256949) 11 mg/dL 7-23 GLUCOSE (test code = 0809650919) 96 mg/dL 70-110 CREATININE (test code = 2160-0) 0.61 mg/dL 0.50-1.04 CALCIUM (test code = 1838478020) 8.6 mg/dL 8.6-10.6 eGFR (test code = 87218-6) 108.4 mL/min/1.73m2 CKD-EPI eGFR (2020). Assuming creatinine has been stable day-to-day for at least three months, the eGFR indicates Category G1 (>= 90 mL/min/1.73 m2) Lab Interpretation (test code = 81966-2) [facility]normal [facility]anoMagnesium2024-05-16 10:22:08* Test Item Value Reference Range Interpretation Comme nts MAGNESIUM (test code = 7650320136) 1.9 mg/dL 1.7-2.4 Lab Interpretation (test cod e = 21120-7) Normal [facility] PlanoHepatic Function Panel (97408) (ALB,T.PRO,BILI T,BU/BC,ALT,AST,ALK PHOS)2023-12-03 10:22:08* Test Item Value Reference Range Interpretation Comme nts TOTAL BILI (test code = 5516378574) 0.5 mg/dL 0.1-1.1 BILI UNCON (test code = 9230170400) 0.2 mg/dL 0.1-1.1 BILI CONJ (test code = 6989908894) 0.0 mg/dL 0.0-0.3 T PROTEIN (test code = 2632019252) 6.7 g/dL 6.3-8.2 ALBUMIN (test code = 1457833053) 3.7 g/dL 3.5-5.0 ALK PHOS (test code = 2297351522) 135 U/L 34-122 H ALTv (test code = 1742-6) 26 U/L 5-35 AST(SGOT) (test code = 6987871919) 24 U/L 13-40 Lab Interpretation (test cod e = 07864-6) Abnormal [facility]anoAC Panel 21 + Lactic [id number] 02:00:25* Test Item Value Reference Range Interpretation Comme nts PH (test code = 3865848395) 7.40 7.32-7.42 PCO2 NOEMI (test code = 4336926076) 40 41-51 L PO2 NOEMI (test code = 5843224602) 34 25-40 HCO3 NOEMI (test code = 7222114493) 24 24-28 AC VBE(BEAKER) (test code = 9103031864) -0.8 mEq/L THB NOEMI (test code = 0257654268) 9.3 g/dL 12.0-16.0 L %O2HB NOEMI (test code = 9886433207) 57.9 % 52.0-63.0 %COHB NOEMI (test code = 8689869315) 1.1 % 0.0-1.5 %METHB NOEMI (test code = 1302063450) 0.3 % 0.4-1.5 L VOL%O2 NOEMI (test code = 3653236409) 7.6 % 6.0-12.0 NA (test code = 8718444272) 139 mmol/L 135-145 K+ (test code = 8198878229) 3.5 mmol/L 3.5-5.0 AC CA IONZ (test code = 1619693105) 4.50 mg/dL 4.50-5.30 GLUCOSE (test code = 7081548778) 88 mg/dL 70-110 LACTIC ACID (test code = 9720737640) 1.63 mmol/L 0.50-2.20 QUES Lab Interpretation (test cod e = 45582-5) Abnormal [facility]anoCT CHEST PULMONARY [id number] 19:47:28HISTORY: Chest pain, rule out P.E. 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 Lab Interpretation (test code = 74916-9) Normal [facility]anoN-Terminal [id number]-[id number] 19:37:29* Test Item Value Reference Range Interpretation Comme nts NT-proBNP (test code = 53416-7) 3420 pg/mL <=125 H LYNDSAY (test code = LYNDSAY) Positive: Heart Failure Likely Lab Interpretation (test code = 12529-6) [facility]normal [facility] PlanoCbc with [id number] 19:28:47* Test Item Value Reference Range Interpretation [...] g/dL 31.6-35.1 L RDW-SD (test code = 36073-1) 68.9 fL 39.0-49.9 H RDW-CV (test code = 788-0) 22.6 % 12.0-15.5 H PLT (test code = 777-3) 379 166-358 H MPV (test code = 78716-5) 9.1 fL 9.5-12.9 L NRBC/100 WBC (test code = 0232246478) 0.0 0.0-10.0 NRBC x10^3 (test code = 1699701101) See_Comment [Automated messa ge] The system which generated this result transmitted reference range: 10*3/?L. The reference range was not used to interpret this result as normal/abnormal. GRAN MAT (NEUT) % (test code = 770-8) 73.5 % IMM GRAN % (test code = 6524849078) 1.70 % LYMPH % (test code = 736-9) 14.9 % MONO % (test code = 5905-5) 8.3 % EOS % (test code = 713-8) 1.2 % BASO % (test code = 706-2) 0.4 % GRAN MAT x10^3(ANC) (test code = 1982588643) 8.05 10*3/uL 1.88-7.09 H IMM GRAN x10^3 (test code = 1867787622) 0.19 10*3/uL 0.00-0.06 H LYMPH x10^3 (test code = 731-0) 1.63 10*3/uL 1.32-3.29 MONO x10^3 (test code = 742-7) 0.91 10*3/uL 0.33-0.92 EOS x10^3 (test code = 711-2) 0.13 10*3/uL 0.03-0.39 BASO x10^3 (test code = 704-7) 0.04 10*3/uL 0.01-0.07 Lab Interpretation (test code = 31652-3) [facility]normal [facility]anoXR CHEST 1 [id number] 19:28:17HISTORY: Dyspnea. TECHNIQUE: Portable AP view of the chest is obtained. Comparison made with11/21/2023 study. FINDINGS: No acute pneumonia. No pneumothorax or pleural effusion orpulmonary congestion detected. Mild cardiomegaly noted. Multilevel lowercervical ACDF surgical changes partially visualized. Mild degenerativechanges noted in the right glenohumeral joint. CONCLUSIONS: Mild cardiomegaly.[facility] PlanoComp. Metabolic Panel (95013) 2023-12-02 19:27:30* Test Item Value Reference Range Interpretation Comme nts NA (test code = 0660094840) 138 mmol/L 135-145 K (test code = 4805555566) 3.8 mmol/L 3.5-5.0 CL (test code = 3386240969) 106 mmol/L 98-108 CO2 TOTAL (test code = 3821052127) 22 mmol/L 23-31 L AGAP (test code = 7544657710) 10 2-16 BUN (test code = 5054058077) 11 mg/dL 7-23 GLUCOSE (test code = 9362397014) 103 mg/dL 70-110 CREATININE (test code = 2160-0) 0.56 mg/dL 0.50-1.04 TOTAL BILI (test code = 7492828276) 0.8 mg/dL 0.1-1.1 CALCIUM (test code = 1246184239) 8.9 mg/dL 8.6-10.6 T PROTEIN (test code = 2316107918) 7.3 g/dL 6.3-8.2 ALBUMIN (test code = 3467664572) 3.9 g/dL 3.5-5.0 ALK PHOS (test code = 1621005489) 147 U/L 34-122 H ALTv (test code = 1742-6) 34 U/L 5-35 AST(SGOT) (test code = 8374562800) 30 U/L 13-40 eGFR (test code = 69108-3) 110.7 mL/min/1.73m2 CKD-EPI eGFR (2020). Assuming creatinine has been stable day-to-day for at least three months, the eGFR indicates Category G1 (>= 90 mL/min/1.73 m2) Lab Interpretation (test code = 64935-4) Abnormal [facility]anoN-Terminal Vqn-[id number] 17:53:15* Test Item Value Reference Range Interpretation Comme [facility] NT-proBNP (test code = 78372-9) 1070 pg/mL <=125 H LYNDSAY (test code = LYNDSAY) Positive: Heart Failure Likely Lab Interpretation (test code = 45455-3) [facility]normal [facility]anoPOCT GLU[facility]SE (AUTOMATED)2023-11-28 16:41:29* Test Item Value Reference Range Interpretation Comme nts POCT GLU (test code = 6623004798) 129 mg/dL 70-110 H Lab Interpretation (test cod e = 30922-6) Abnormal [facility] PlanoMagnesium2024-05-11 10:02:12* Test Item Value Reference Range Interpretation Comme nts MAGNESIUM (test code = 6912910220) 2.1 mg/dL 1.7-2.4 Lab Interpretation (test cod e = 72337-6) Normal [facility] PlanoPhosphorus2024-05-11 10:02:12* Test Item Value Reference Range Interpretation Comme nts PHOSPHORUS (test code = 9483456896) 5.9 mg/dL 2.5-5.0 H Lab Interpretation (test cod e = 25087-0) Abnormal [facility]. Metabolic Panel (74868)2023-11-28 10:02:12* Test Item Value Reference Range Interpretation Comme nts NA (test code = 6688653273) 140 mmol/L 135-145 K (test code = 4574313778) 3.7 mmol/L 3.5-5.0 CL (test code = 8670371419) 98 mmol/L 98-108 CO2 TOTAL (test code = 2146286689) 33 mmol/L 23-31 H AGAP (test code = 6510721645) 9 2-16 BUN (test code = 1995220647) 24 mg/dL 7-23 H GLUCOSE (test code = 2693521167) 107 mg/dL 70-110 CREATININE (test code = 2160-0) 0.61 mg/dL 0.50-1.04 TOTAL BILI (test code = 2221142726) 0.6 mg/dL 0.1-1.1 CALCIUM (test code = 7711106736) 8.0 mg/dL 8.6-10.6 L T PROTEIN (test code = 7128821845) 6.0 g/dL 6.3-8.2 L ALBUMIN (test code = 5626252705) 3.4 g/dL 3.5-5.0 L ALK PHOS (test code = 1690293828) 173 U/L 34-122 H ALTv (test code = 1742-6) 61 U/L 5-35 H AST(SGOT) (test code = 0056223853) 29 U/L 13-40 eGFR (test code = 79082-3) 108.4 mL/min/1.73m2 CKD-EPI eGFR (2020). Assuming creatinine has been stable day-to-day for at least three months, the eGFR indicates Category G1 (>= 90 mL/min/1.73 m2) Lab Interpretation (test code = 75072-1) Abnormal [facility] with [id number] 09:37:29* Test Item Value Reference Range Interpretation [...] g/dL 31.6-35.1 L RDW-SD (test code = 44117-4) 65.6 fL 39.0-49.9 H RDW-CV (test code = 788-0) 22.0 % 12.0-15.5 H PLT (test code = 777-3) 292 166-358 MPV (test code = 02118-7) 9.1 fL 9.5-12.9 L NRBC/100 WBC (test code = 1190686399) 0.0 0.0-10.0 NRBC x10^3 (test code = 6837989242) See_Comment [Automated messa ge] The system which generated this result transmitted reference range: 10*3/?L. The reference range was not used to interpret this result as normal/abnormal. GRAN MAT (NEUT) % (test code = 770-8) 62.0 % IMM GRAN % (test code = 1592403434) 1.20 % LYMPH % (test code = 736-9) 28.5 % MONO % (test code = 5905-5) 7.3 % EOS % (test code = 713-8) 0.9 % BASO % (test code = 706-2) 0.1 % GRAN MAT x10^3(ANC) (test code = 0197967382) 4.98 10*3/uL 1.88-7.09 IMM GRAN x10^3 (test code = 3122029571) 0.10 10*3/uL 0.00-0.06 H LYMPH x10^3 (test code = 731-0) 2.29 10*3/uL 1.32-3.29 MONO x10^3 (test code = 742-7) 0.59 10*3/uL 0.33-0.92 EOS x10^3 (test code = 711-2) 0.07 10*3/uL 0.03-0.39 BASO x10^3 (test code = 704-7) 0.01-0.07 Lab Interpretation (test code = 91827-2) Abnormal [facility] GLUCOSE (AUTOMATED)2023-11-28 01:32:15* Test Item Value Reference Range Interpretation Comme nts POCT GLU (test code = 8521708318) 154 mg/dL 70-110 H Lab Interpretation (test cod e = 52240-6) Abnormal [facility] GLUCOSE (AUTOMATED)2023-11-27 21:45:44* Test Item Value Reference Range Interpretation Comme nts POCT GLU (test code = 5826533920) 183 mg/dL 70-110 H Lab Interpretation (test cod e = 50116-3) Abnormal [facility] GLUCOSE (AUTOMATED)2023-11-27 16:31:46* Test Item Value Reference Range Interpretation Comme nts POCT GLU (test code = 7554074763) 96 mg/dL 70-110 Lab Interpretation (test cod e = 20319-4) Normal [facility] GLUCOSE (AUTOMATED)2023-11-27 12:42:32* Test Item Value Reference Range Interpretation Comme nts POCT GLU (test code = 8988388688) 88 mg/dL 70-110 Lab Interpretation (test cod e = 33915-5) Normal [facility] PlanoLapaic Acid Whole Erdix5367-17-42 06:44:07* Test Item Value Reference Range Interpretation Comme nts LACTIC ACID (test code = 3933323837) 1.48 mmol/L 0.50-2.20 Lab Interpretation (test cod e = 47471-9) Normal [facility] GLUCOSE (AUTOMATED)2023-11-27 02:37:00* Test Item Value Reference Range Interpretation Comme nts POCT GLU (test code = 1179752290) 167 mg/dL 70-110 H Lab Interpretation (test cod e = 91952-3) Abnormal [facility] PlanoValproic Acid, Eith7672-31-27 00:22:04* Test Item Value Reference Range Interpretation Comme nts Valproic Acid, Free (test code = 1187091470) 23.8 ug/mL 4.0-15.0 H LYNDSAY (test code = LYNDSAY) Toxic Range: ? Greater than 15 ug/mL Test developed and characteristics determined by [facility] Services. Lab Interpretation (test code = 52477-1) Abnormal [facility] PlanoFolate2024-05-09 22:17:52* Test Item Value Reference Range Interpretation Comme nts FOLATE SER (test code = 8923609006) 10.9 ng/mL 3.0-20.0 Lab Interpretation (test cod e = 51261-6) Normal [facility] PlanoVitamin B12, Pclgu9026-50-28 22:17:52* Test Item Value Reference Range Interpretation Comme nts VIT B12 (test code = 6564588275) 485 pg/mL 240-930 LYNDSAY (test code = LYNDSAY) Biotin has been reported to cause a positive bias, interpret results relative to patient's use of biotin. Lab Interpretation (test code = 65890-1) [facility] PlanoCT HEAD WO [id number] 22:17:11EXAM: CT HEAD WO CONTRAST HISTORY: 53 [...] The calvarium and central skull base areunremarkable. [facility] PlanoMagnesium2024-05-09 22:11:53* Test Item Value Reference Range Interpretation Comme nts MAGNESIUM (test code = 5080794936) 2.1 mg/dL 1.7-2.4 Lab Interpretation (test cod e = 90842-2) Normal [facility] PlanoComp. Metabolic Panel (01826)2023-11-26 22:11:53* Test Item Value Reference Range Interpretation Comme nts NA (test code = 7271443607) 132 mmol/L 135-145 L K (test code = 4816244884) 4.3 mmol/L 3.5-5.0 CL (test code = 7401415045) 94 mmol/L 98-108 L CO2 TOTAL (test code = 3744637802) 34 mmol/L 23-31 H AGAP (test code = 6815204764) 4 2-16 BUN (test code = 8672664313) 24 mg/dL 7-23 H GLUCOSE (test code = 5401557064) 178 mg/dL 70-110 H CREATININE (test code = 2160-0) 0.62 mg/dL 0.50-1.04 TOTAL BILI (test code = 1758246886) 0.6 mg/dL 0.1-1.1 CALCIUM (test code = 4204615403) 8.0 mg/dL 8.6-10.6 L T PROTEIN (test code = 6709987113) 6.1 g/dL 6.3-8.2 L ALBUMIN (test code = 8057938255) 3.5 g/dL 3.5-5.0 ALK PHOS (test code = 1800461049) 212 U/L 34-122 H ALTv (test code = 1742-6) 80 U/L 5-35 H AST(SGOT) (test code = 5335284446) 51 U/L 13-40 H eGFR (test code = 22730-5) 108.0 mL/min/1.73m2 CKD-EPI eGFR (2020). Assuming creatinine has been stable day-to-day for at least three months, the eGFR indicates Category G1 (>= 90 mL/min/1.73 m2) Lab Interpretation (test code = 15611-5) [facility] 21:19:06* Test Item Value Reference Range Interpretation Comme [facility] POCT GLU (test code = 8552553368) 224 mg/dL 70-110 H Lab Interpretation (test cod e = 57200-9) [facility] (Levetiracetam)2023-11-26 19:45:17* Test Item Value Reference Range Interpretation Comme nts KEPPRA (test code = 6195041534) 12-46 L LYNDSAY (test code = LYNDSAY) Therapeutic range: 12-46 ?g/mL ? ?Toxic: Not well established.Test developed and characteristics determined by [facility]. Lab Interpretation (test code = 88679-0) [facility]normal [facility]apa[facility] Acid Whole Sshpp0918-43-06 18:11:07* Test Item Value Reference Range Interpretation Comme nts LACTIC ACID (test code = 8055868747) 6.19 mmol/L 0.50-2.20 H Lab Interpretation (test cod e = 42171-7) [facility]2023-11-26 17:06:14* Test Item Value Reference Range Interpretation Comme nts POCT GLU (test code = 2470344136) 293 mg/dL 70-110 H Lab Interpretation (test cod e = 05846-7) [facility]normal [facility] Met[facility] (79438)2023-11-26 14:21:31* Test Item Value Reference Range Interpretation Comme nts NA (test code = 4450602398) 140 mmol/L 135-145 K (test code = 7478702194) 3.9 mmol/L 3.5-5.0 CL (test code = 7280325430) 93 mmol/L 98-108 L CO2 TOTAL (test code = 4430019499) 38 mmol/L 23-31 H AGAP (test code = 9044827699) 9 2-16 BUN (test code = 4247629111) 25 mg/dL 7-23 H GLUCOSE (test code = 1178211994) 83 mg/dL 70-110 CREATININE (test code = 2160-0) 0.71 mg/dL 0.50-1.04 TOTAL BILI (test code = 3483683693) 0.7 mg/dL 0.1-1.1 CALCIUM (test code = 6843900468) 8.7 mg/dL 8.6-10.6 T PROTEIN (test code = 3929388021) 6.6 g/dL 6.3-8.2 ALBUMIN (test code = 9381739552) 3.6 g/dL 3.5-5.0 ALK PHOS (test code = 8412106900) 220 U/L 34-122 H ALTv (test code = 1742-6) 95 U/L 5-35 H AST(SGOT) (test code = 0556014773) 47 U/L 13-40 H eGFR (test code = 77472-7) 103.1 mL/min/1.73m2 CKD-EPI eGFR (2020). Assuming creatinine has been stable day-to-day for at least three months, the eGFR indicates Category G1 (>= 90 mL/min/1.73 m2) Lab Interpretation (test code = 97388-0) [facility] 14:03:47* Test Item Value Reference Range Interpretation Comme nts MAGNESIUM (test code = 9330440873) 2.3 mg/dL 1.7-2.4 Lab Interpretation (test cod e = 37011-3) Normal [facility] with Xxjl5305-70-98 13:57:47* Test Item Value Reference Range Interpretation [...] g/dL 31.6-35.1 L RDW-SD (test code = 29532-7) 67.3 fL 39.0-49.9 H RDW-CV (test code = 788-0) 22.5 % 12.0-15.5 H PLT (test code = 777-3) 285 166-358 MPV (test code = 06242-4) 9.2 fL 9.5-12.9 L NRBC/100 WBC (test code = 5701239990) 0.3 0.0-10.0 NRBC x10^3 (test code = 9058552822) 0.03 See_Comment [Automated messa ge] The system which generated this result transmitted reference range: 10*3/?L. The reference range was not used to interpret this result as normal/abnormal. GRAN MAT (NEUT) % (test code = 770-8) 70.5 % IMM GRAN % (test code = 1974987554) 0.80 % LYMPH % (test code = 736-9) 21.7 % MONO % (test code = 5905-5) 6.4 % EOS % (test code = 713-8) 0.5 % BASO % (test code = 706-2) 0.1 % GRAN MAT x10^3(ANC) (test code = 4070594258) 7.54 10*3/uL 1.88-7.09 H IMM GRAN x10^3 (test code = 5710292497) 0.09 10*3/uL 0.00-0.06 H LYMPH x10^3 (test code = 731-0) 2.32 10*3/uL 1.32-3.29 MONO x10^3 (test code = 742-7) 0.69 10*3/uL 0.33-0.92 EOS x10^3 (test code = 711-2) 0.05 10*3/uL 0.03-0.39 BASO x10^3 (test code = 704-7) 0.01-0.07 Lab Interpretation (test code = 02101-5) [facility] Kfukg3234-45-76 10:06:23* Test Item Value Reference Range Interpretation Comme [facility] LACTIC ACID (test code = 4248678157) 2.41 mmol/L 0.50-2.20 H Lab Interpretation (test cod e = 81401-8) Abnormal [facility] GLUCOSE (AUTOMATED)2023-11-26 02:14:06* Test Item Value Reference Range Interpretation Comme nts POCT GLU (test code = 3508961498) 288 mg/dL 70-110 H Lab Interpretation (test cod e = 01163-1) [facility] Nrimu8214-77-24 00:56:52* Test Item Value Reference Range Interpretation Comme [facility] LACTIC ACID (test code = 0904886843) 2.93 mmol/L 0.50-2.20 H Lab Interpretation (test cod e = 19714-1) Abnormal [facility]ro[facility] (EEG[facility] - Duration of test: Continuous EEG Monitoring (LTM); Release to patient:Majvhpjlb2728-82-13 00:00:00 * Test Item Value Reference Range Interpretation Comme nts LYNDSAY (test code = LYNDSAY) LONG-TERM EEG MONITORING #1: 11/26/2023, 15:40 - 16: 31 Name: Heather TurnerN: [id number] Age:53 year oldSex: female History from chart review: This is a 53 year old female with a PMH significant for HFrEF (~35% 05/2023), HTN, Smoker, COPD (on intermittent home O2), chronic low back pain, seizure disorder, C3-C4 ACDF and L3-L4 laminectomies (06/01/23) c/b chronic low back pain 2/2 lumbar spinal stenosis, and depression presenting from [facility] ED due to SOB. Level of Consciousness: [...] segment. Laura Ramirez MD, PhD, FAESData: 11/26/2023 INFORMATICA DEVELOPER EEG MONITORING SEGMENT #2: 11/26/23, 16:31:09-19:29:41 In [...] Interpreted by Dewey Neal MD on 11/26/23 -----INFORMATICA DEVELOPER EEG MONITORING SEGMENT #3: 11/26/23, 19:29:41 to [...] Interpreted by Coby Hummel MD on 11/27/23 LONG TERM EEG MONITORING [...] on 11/27/23 Lab Interpretation (test code = 57923-6) Abnormal [facility]. Metabolic Panel (36582)2023-11-25 21:24:39* Test Item Value Reference Range Interpretation Comme nts NA (test code = 9506810888) 134 mmol/L 135-145 L K (test code = 9594501455) 4.3 mmol/L 3.5-5.0 CL (test code = 4192798178) 89 mmol/L 98-108 L CO2 TOTAL (test code = 0897490370) 37 mmol/L 23-31 H AGAP (test code = 8059995469) 8 2-16 BUN (test code = 6574015381) 24 mg/dL 7-23 H GLUCOSE (test code = 6829474109) 177 mg/dL 70-110 H CREATININE (test code = 2160-0) 0.69 mg/dL 0.50-1.04 TOTAL BILI (test code = 8391377950) 0.9 mg/dL 0.1-1.1 CALCIUM (test code = 8787881931) 8.6 mg/dL 8.6-10.6 T PROTEIN (test code = 7683605201) 7.3 g/dL 6.3-8.2 ALBUMIN (test code = 7835626023) 4.1 g/dL 3.5-5.0 ALK PHOS (test code = 6477195397) 263 U/L 34-122 H ALTv (test code = 1742-6) 116 U/L 5-35 H AST(SGOT) (test code = 6370700429) 36 U/L 13-40 eGFR (test code = 54214-2) 105.2 mL/min/1.73m2 CKD-EPI eGFR (2020). Assuming creatinine has been stable day-to-day for at least three months, the eGFR indicates Category G1 (>= 90 mL/min/1.73 m2) Lab Interpretation (test code = 75169-6) [facility]* Test Item Value Reference Range Interpretation Comme nts MAGNESIUM (test code = 1928131044) 2.1 mg/dL 1.7-2.4 Lab Interpretation (test cod e = 09636-8) [facility] Vgpha1304-82-42 21:10:26* Test Item Value Reference Range Interpretation Comme nts LACTIC ACID (test code = 0386973067) 4.07 mmol/L 0.50-2.20 H Lab Interpretation (test cod e = 47836-4) Abnormal [facility] GLUCOSE (AUTOMATED)2023-11-25 21:01:04* Test Item Value Reference Range Interpretation Comme nts POCT GLU (test code = 9218828614) 173 mg/dL 70-110 H Lab Interpretation (test cod e = 72729-1) Abnormal [facility] GLUCOSE (AUTOMATED)2023-11-25 16:59:00* Test Item Value Reference Range Interpretation Comme nts POCT GLU (test code = 4569223831) 220 mg/dL 70-110 H Lab Interpretation (test cod e = 56185-6) Abnormal [facility] GLUCOSE (AUTOMATED)2023-11-25 13:06:20* Test Item Value Reference Range Interpretation Comme nts POCT GLU (test code = 2144404370) 92 mg/dL 70-110 Lab Interpretation (test cod e = 44075-8) Normal [facility] Acid Whole Xgfrr3281-86-99 09:28:51* Test Item Value Reference Range Interpretation Comme nts LACTIC ACID (test code = 8887878448) 1.66 mmol/L 0.50-2.20 Lab Interpretation (test cod e = 47004-8) [facility] Whole Mqazj1988-66-99 04:58:57* Test Item Value Reference Range Interpretation Comme nts LACTIC ACID (test code = 2343215926) 2.00 mmol/L 0.50-2.20 Lab Interpretation (test cod e = 86111-0) Normal [facility] GLUCOSE (AUTOMATED)2023-11-25 03:05:13* Test Item Value Reference Range Interpretation Comme nts POCT GLU (test code = 1374839940) 189 mg/dL 70-110 H Lab Interpretation (test cod e = 07483-6) Abnormal [facility] ABDOMEN PELVIS W DGAJMKEL2257-88-78 00:18:09CT ABDOMEN PELVIS W CONTRAST 11/24/2023 5:07 [...] pelvic and upper thigh skinthickening and subcutaneous edema.[facility] Acid Whole Hmdxt5277-03-35 21:31:49* Test Item Value Reference Range Interpretation Comme nts LACTIC ACID (test code = 8473189667) 4.54 mmol/L 0.50-2.20 H Lab Interpretation (test cod e = 20145-2) Abnormal [facility] GLUCOSE (AUTOMATED)2023-11-24 21:31:39* Test Item Value Reference Range Interpretation Comme nts POCT GLU (test code = 4204103314) 198 mg/dL 70-110 H Lab Interpretation (test cod e = 15694-7) Abnormal [facility] GLUCOSE (AUTOMATED)2023-11-24 17:53:57* Test Item Value Reference Range Interpretation Comme nts POCT GLU (test code = 3564412185) 226 mg/dL 70-110 H Lab Interpretation (test cod e = 94669-2) Abnormal [facility] GLUCOSE (AUTOMATED)2023-11-24 17:53:57* Test Item Value Reference Range Interpretation Comme nts POCT GLU (test code = 3744918292) 226 mg/dL 70-110 H Lab Interpretation (test cod e = 46734-0) Abnormal [facility] GLUCOSE (AUTOMATED)2023-11-24 17:53:57* Test Item Value Reference Range Interpretation Comme nts POCT GLU (test code = 6050797984) 226 mg/dL 70-110 H Lab Interpretation (test cod e = 31177-6) Abnormal [facility] Acid Whole Muulk2115-98-77 15:48:27* Test Item Value Reference Range Interpretation Comme nts LACTIC ACID (test code = 9782802293) 4.43 mmol/L 0.50-2.20 H Lab Interpretation (test cod e = 73613-6) Abnormal [facility] Acid Whole Yvbfv7107-26-62 15:48:27* Test Item Value Reference Range Interpretation Comme nts LACTIC ACID (test code = 3051648517) 4.43 mmol/L 0.50-2.20 H Lab Interpretation (test cod e = 52864-5) Abnormal [facility]ano[facility] Acid Whole Fokcp7679-79-72 15:48:27* Test Item Value Reference Range Interpretation Comme nts LACTIC ACID (test code = 3746746051) 4.43 mmol/L 0.50-2.20 H Lab Interpretation (test cod e = 08939-4) Abnormal [facility]anoCardiovascular Uzbrjlbpwqxpugc5992-91-26 14:28:29? ?RHC/Coronary Angiography Date of Service: 11/23/2023 ?3:18 PM Indication/Diagnosis: heart failure Consent source: self Consent type: indications/complications discussed with patient/legal guardian; written consent obtained Time out completed: yes Aseptic technique: Chlorprep Local Anesthesia: 1% lidocaine without epinephrine Sedation: fentanyl 50 mcg, Versed 2 mg Access site: right radial artery, RIJ Camargo 4.0 5fr8 Fr IJ sheathSwan Rosalba ? [...] sided failure. Nataliia Ivy professor.Division of cardiovascular [facility])2023-11-24 12:34:31* Test Item Value Reference Range Interpretation Comme nts POCT GLU (test code = 8697511989) 114 mg/dL 70-110 H Lab Interpretation (test cod e = 99614-4) Abnormal [facility] GLUCOSE (AUTOMATED)2023-11-24 12:34:31* Test Item Value Reference Range Interpretation Comme nts POCT GLU (test code = 1281272942) 114 mg/dL 70-110 H Lab Interpretation (test cod e = 30438-2) Abnormal [facility] GLUCOSE (AUTOMATED)2023-11-24 12:34:31* Test Item Value Reference Range Interpretation Comme nts POCT GLU (test code = 1379451719) 114 mg/dL 70-110 H Lab Interpretation (test cod e = 48155-7) Abnormal [facility]2024-05-07 11:10:57* Test Item Value Reference Range Interpretation Comme nts MAGNESIUM (test code = 8746609068) 2.2 mg/dL 1.7-2.4 Lab Interpretation (test cod e = 86652-1) Normal [facility] Metabolic Panel (15850)2023-11-24 11:10:57* Test Item Value Reference Range Interpretation Comme nts NA (test code = 6718551660) 141 mmol/L 135-145 K (test code = 2180008257) 4.1 mmol/L 3.5-5.0 CL (test code = 8377821277) 97 mmol/L 98-108 L CO2 TOTAL (test code = 8283909614) 36 mmol/L 23-31 H AGAP (test code = 1340533279) 8 2-16 BUN (test code = 9014745617) 20 mg/dL 7-23 GLUCOSE (test code = 5986459377) 125 mg/dL 70-110 H CREATININE (test code = 2160-0) 0.66 mg/dL 0.50-1.04 TOTAL BILI (test code = 8956507051) 0.7 mg/dL 0.1-1.1 CALCIUM (test code = 2565263675) 8.4 mg/dL 8.6-10.6 L T PROTEIN (test code = 5084838474) 6.5 g/dL 6.3-8.2 ALBUMIN (test code = 3169908212) 3.7 g/dL 3.5-5.0 ALK PHOS (test code = 6527673127) 266 U/L 34-122 H ALTv (test code = 1742-6) 149 U/L 5-35 H AST(SGOT) (test code = 7982603817) 35 U/L 13-40 eGFR (test code = 20083-5) 106.4 mL/min/1.73m2 CKD-EPI eGFR (2020). Assuming creatinine has been stable day-to-day for at least three months, the eGFR indicates Category G1 (>= 90 mL/min/1.73 m2) Lab Interpretation (test code = 36601-5) [facility]normal [facility]2024-05-07 11:10:57* Test Item Value Reference Range Interpretation Comme nts MAGNESIUM (test code = 9744273630) 2.2 mg/dL 1.7-2.4 Lab Interpretation (test cod e = 93663-4) Normal [facility]ano[facility]. Metabolic Panel (61295)2023-11-24 11:10:57* Test Item Value Reference Range Interpretation Comme nts NA (test code = 1657659861) 141 mmol/L 135-145 K (test code = 2091858971) 4.1 mmol/L 3.5-5.0 CL (test code = 2609676694) 97 mmol/L 98-108 L CO2 TOTAL (test code = 1265743402) 36 mmol/L 23-31 H AGAP (test code = 2408571154) 8 2-16 BUN (test code = 8996773070) 20 mg/dL 7-23 GLUCOSE (test code = 9612367930) 125 mg/dL 70-110 H CREATININE (test code = 2160-0) 0.66 mg/dL 0.50-1.04 TOTAL BILI (test code = 6451337376) 0.7 mg/dL 0.1-1.1 CALCIUM (test code = 7211604566) 8.4 mg/dL 8.6-10.6 L T PROTEIN (test code = 8390276557) 6.5 g/dL 6.3-8.2 ALBUMIN (test code = 4708987257) 3.7 g/dL 3.5-5.0 ALK PHOS (test code = 2466996496) 266 U/L 34-122 H ALTv (test code = 1742-6) 149 U/L 5-35 H AST(SGOT) (test code = 7856202435) 35 U/L 13-40 eGFR (test code = 23842-0) 106.4 mL/min/1.73m2 CKD-EPI eGFR (2020). Assuming creatinine has been stable day-to-day for at least three months, the eGFR indicates Category G1 (>= 90 mL/min/1.73 m2) Lab Interpretation (test code = 98981-6) Abnormal [facility]2024-05-07 11:10:57* Test Item Value Reference Range Interpretation Comme nts MAGNESIUM (test code = 4846085291) 2.2 mg/dL 1.7-2.4 Lab Interpretation (test cod e = 63198-5) Normal [facility] Metabolic Panel (63752)2023-11-24 11:10:57* Test Item Value Reference Range Interpretation Comme nts NA (test code = 3882154829) 141 mmol/L 135-145 K (test code = 7375109570) 4.1 mmol/L 3.5-5.0 CL (test code = 3218538031) 97 mmol/L 98-108 L CO2 TOTAL (test code = 0754821641) 36 mmol/L 23-31 H AGAP (test code = 4113318459) 8 2-16 BUN (test code = 7952887964) 20 mg/dL 7-23 GLUCOSE (test code = 8574085453) 125 mg/dL 70-110 H CREATININE (test code = 2160-0) 0.66 mg/dL 0.50-1.04 TOTAL BILI (test code = 0408863510) 0.7 mg/dL 0.1-1.1 CALCIUM (test code = 4048639088) 8.4 mg/dL 8.6-10.6 L T PROTEIN (test code = 3278093324) 6.5 g/dL 6.3-8.2 ALBUMIN (test code = 4812165719) 3.7 g/dL 3.5-5.0 ALK PHOS (test code = 4491391927) 266 U/L 34-122 H ALTv (test code = 1742-6) 149 U/L 5-35 H AST(SGOT) (test code = 1920100608) 35 U/L 13-40 eGFR (test code = 04520-5) 106.4 mL/min/1.73m2 CKD-EPI eGFR (2020). Assuming creatinine has been stable day-to-day for at least three months, the eGFR indicates Category G1 (>= 90 mL/min/1.73 m2) Lab Interpretation (test code = 87195-7) [facility] Hour Gdcfav3553-34-15 11:07:59* Test Item Value Reference Range Interpretation Comme nts LACTIC ACID (test code = 4479424796) 3.41 mmol/L 0.50-2.20 H Lab Interpretation (test cod e = 86702-7) [facility] Pvwtuk6123-56-73 11:07:59* Test Item Value Reference Range Interpretation Comme nts LACTIC ACID (test code = 2008651051) 3.41 mmol/L 0.50-2.20 H Lab Interpretation (test cod e = 19708-4) [facility] Jsvrvm6893-17-19 11:07:59* Test Item Value Reference Range Interpretation Comme nts LACTIC ACID (test code = 7931867503) 3.41 mmol/L 0.50-2.20 H Lab Interpretation (test cod e = 82341-9) Abnormal [facility] with Zbdq2347-38-91 10:28:34* Test Item Value Reference Range Interpretation [...] g/dL 31.6-35.1 L RDW-SD (test code = 12133-5) 67.5 fL 39.0-49.9 H RDW-CV (test code = 788-0) 22.5 % 12.0-15.5 H PLT (test code = 777-3) 245 166-358 MPV (test code = 99965-2) 9.5 fL 9.5-12.9 NRBC/100 WBC (test code = 9808267680) 1.2 0.0-10.0 NRBC x10^3 (test code = 4789619773) 0.11 See_Comment [Automated messa ge] The system which generated this result transmitted reference range: 10*3/?L. The reference range was not used to interpret this result as normal/abnormal. GRAN MAT (NEUT) % (test code = 770-8) 84.8 % IMM GRAN % (test code = 6410639872) 0.80 % LYMPH % (test code = 736-9) 7.3 % MONO % (test code = 5905-5) 7.0 % EOS % (test code = 713-8) 0.0 % BASO % (test code = 706-2) 0.1 % GRAN MAT x10^3(ANC) (test code = 2289132672) 8.03 10*3/uL 1.88-7.09 H IMM GRAN x10^3 (test code = 5695382515) 0.08 10*3/uL 0.00-0.06 H LYMPH x10^3 (test code = 731-0) 0.69 10*3/uL 1.32-3.29 L MONO x10^3 (test code = 742-7) 0.66 10*3/uL 0.33-0.92 EOS x10^3 (test code = 711-2) 0.03-0.39 L BASO x10^3 (test code = 704-7) 0.01-0.07 Lab Interpretation (test code = 59519-4) Abnormal [facility] with Juft6001-83-48 10:28:34* Test Item Value Reference Range Interpretation [...] g/dL 31.6-35.1 L RDW-SD (test code = 54843-7) 67.5 fL 39.0-49.9 H RDW-CV (test code = 788-0) 22.5 % 12.0-15.5 H PLT (test code = 777-3) 245 166-358 MPV (test code = 38319-0) 9.5 fL 9.5-12.9 NRBC/100 WBC (test code = 2780034167) 1.2 0.0-10.0 NRBC x10^3 (test code = 3987704330) 0.11 See_Comment [Automated messa ge] The system which generated this result transmitted reference range: 10*3/?L. The reference range was not used to interpret this result as normal/abnormal. GRAN MAT (NEUT) % (test code = 770-8) 84.8 % IMM GRAN % (test code = 0471590283) 0.80 % LYMPH % (test code = 736-9) 7.3 % MONO % (test code = 5905-5) 7.0 % EOS % (test code = 713-8) 0.0 % BASO % (test code = 706-2) 0.1 % GRAN MAT x10^3(ANC) (test code = 7006450374) 8.03 10*3/uL 1.88-7.09 H IMM GRAN x10^3 (test code = 4115076187) 0.08 10*3/uL 0.00-0.06 H LYMPH x10^3 (test code = 731-0) 0.69 10*3/uL 1.32-3.29 L MONO x10^3 (test code = 742-7) 0.66 10*3/uL 0.33-0.92 EOS x10^3 (test code = 711-2) 0.03-0.39 L BASO x10^3 (test code = 704-7) 0.01-0.07 Lab Interpretation (test code = 28208-3) [facility]normal [facility] with Eslg6575-43-18 10:28:34* Test Item Value Reference Range Interpretation [...] g/dL 31.6-35.1 L RDW-SD (test code = 69677-9) 67.5 fL 39.0-49.9 H RDW-CV (test code = 788-0) 22.5 % 12.0-15.5 H PLT (test code = 777-3) 245 166-358 MPV (test code = 23627-5) 9.5 fL 9.5-12.9 NRBC/100 WBC (test code = 1697652499) 1.2 0.0-10.0 NRBC x10^3 (test code = 4120264587) 0.11 See_Comment [Automated messa ge] The system which generated this result transmitted reference range: 10*3/?L. The reference range was not used to interpret this result as normal/abnormal. GRAN MAT (NEUT) % (test code = 770-8) 84.8 % IMM GRAN % (test code = 1417166829) 0.80 % LYMPH % (test code = 736-9) 7.3 % MONO % (test code = 5905-5) 7.0 % EOS % (test code = 713-8) 0.0 % BASO % (test code = 706-2) 0.1 % GRAN MAT x10^3(ANC) (test code = 9848089844) 8.03 10*3/uL 1.88-7.09 H IMM GRAN x10^3 (test code = 4844783975) 0.08 10*3/uL 0.00-0.06 H LYMPH x10^3 (test code = 731-0) 0.69 10*3/uL 1.32-3.29 L MONO x10^3 (test code = 742-7) 0.66 10*3/uL 0.33-0.92 EOS x10^3 (test code = 711-2) 0.03-0.39 L BASO x10^3 (test code = 704-7) 0.01-0.07 Lab Interpretation (test code = 32759-6) Abnormal [facility] (for use with Heparin Infusion)2023-11-24 06:40:52* Test Item Value Reference Range Interpretation Comme [facility] APTT Patient (test code = 3173-2) Lab Interpretation (test cod e = 96682-5) Normal [facility] (for use with Heparin Infusion)2023-11-24 06:40:52* Test Item Value Reference Range Interpretation Comme [facility] APTT Patient (test code = 3173-2) Lab Interpretation (test cod e = 69120-6) [facility] use with Heparin Infusion[facility]2023-11-24 06:40:52* Test Item Value Reference Range Interpretation Comme nts APTT Patient (test code = 3173-2) 36 Lab Interpretation (test cod e = 03545-5) Normal [facility] GLUCOSE (AUTOMATED)2023-11-24 03:18:58* Test Item Value Reference Range Interpretation Comme nts POCT GLU (test code = 9451494585) 263 mg/dL 70-110 H Lab Interpretation (test cod e = 61309-1) Abnormal [facility] GLUCOSE (AUTOMATED)2023-11-24 03:18:58* Test Item Value Reference Range Interpretation Comme nts POCT GLU (test code = 3348232600) 263 mg/dL 70-110 H Lab Interpretation (test cod e = 41187-6) Abnormal [facility] GLUCOSE (AUTOMATED)2023-11-24 03:18:58* Test Item Value Reference Range Interpretation Comme nts POCT GLU (test code = 5138358771) 263 mg/dL 70-110 H Lab Interpretation (test cod e = 41615-4) Abnormal [facility] GLUCOSE (AUTOMATED)2023-11-23 21:29:57* Test Item Value Reference Range Interpretation Comme nts POCT GLU (test code = 8924025902) 137 mg/dL 70-110 H Lab Interpretation (test cod e = 06179-3) Abnormal [facility] GLUCOSE (AUTOMATED)2023-11-23 21:29:57* Test Item Value Reference Range Interpretation Comme nts POCT GLU (test code = 6259360611) 137 mg/dL 70-110 H Lab Interpretation (test cod e = 00929-0) Abnormal [facility] GLUCOSE (AUTOMATED)2023-11-23 21:29:57* Test Item Value Reference Range Interpretation Comme nts POCT GLU (test code = 3820578523) 137 mg/dL 70-110 H Lab Interpretation (test cod e = 50403-6) [facility]normal [facility]ano[facility] (91443) (ALB,T.PRO,BILI T,BU/BC,ALT,AST,ALK PHOS)2023-11-23 17:45:02* Test Item Value Reference Range Interpretation Comme nts TOTAL BILI (test code = 9752640423) 0.7 mg/dL 0.1-1.1 BILI UNCON (test code = 9215635901) 0.1 mg/dL 0.1-1.1 BILI CONJ (test code = 5800987109) 0.0 mg/dL 0.0-0.3 T PROTEIN (test code = 4151301676) 6.2 g/dL 6.3-8.2 L ALBUMIN (test code = 6030068750) 3.5 g/dL 3.5-5.0 ALK PHOS (test code = 2629920428) 274 U/L 34-122 H ALTv (test code = 1742-6) 176 U/L 5-35 H AST(SGOT) (test code = 0730805683) 40 U/L 13-40 Lab Interpretation (test cod e = 02463-9) [facility]normal [facility] (00897) (ALB,T.PRO,BILI T,BU/BC,ALT,AST,ALK PHOS)2023-11-23 17:45:02* Test Item Value Reference Range Interpretation Comme nts TOTAL BILI (test code = 7033353132) 0.7 mg/dL 0.1-1.1 BILI UNCON (test code = 1267660430) 0.1 mg/dL 0.1-1.1 BILI CONJ (test code = 5738445115) 0.0 mg/dL 0.0-0.3 T PROTEIN (test code = 7153246921) 6.2 g/dL 6.3-8.2 L ALBUMIN (test code = 0108620076) 3.5 g/dL 3.5-5.0 ALK PHOS (test code = 4765315215) 274 U/L 34-122 H ALTv (test code = 1742-6) 176 U/L 5-35 H AST(SGOT) (test code = 9173502627) 40 U/L 13-40 Lab Interpretation (test cod e = 51414-5) [facility]normal [facility] (33529) (ALB,T.PRO,BILI T,BU/BC,ALT,AST,ALK PHOS)2023-11-23 17:45:02* Test Item Value Reference Range Interpretation Comme nts TOTAL BILI (test code = 5435130009) 0.7 mg/dL 0.1-1.1 BILI UNCON (test code = 2540732659) 0.1 mg/dL 0.1-1.1 BILI CONJ (test code = 2665884451) 0.0 mg/dL 0.0-0.3 T PROTEIN (test code = 9172148904) 6.2 g/dL 6.3-8.2 L ALBUMIN (test code = 6512136441) 3.5 g/dL 3.5-5.0 ALK PHOS (test code = 0886264284) 274 U/L 34-122 H ALTv (test code = 1742-6) 176 U/L 5-35 H AST(SGOT) (test code = 3402631629) 40 U/L 13-40 Lab Interpretation (test cod e = 75765-3) Abnormal [facility] GLUCOSE (AUTOMATED)2023-11-23 17:19:25* Test Item Value Reference Range Interpretation Comme nts POCT GLU (test code = 1614445340) 137 mg/dL 70-110 H Lab Interpretation (test cod e = 02001-8) Abnormal [facility] GLUCOSE (AUTOMATED)2023-11-23 17:19:25* Test Item Value Reference Range Interpretation Comme nts POCT GLU (test code = 7170311693) 137 mg/dL 70-110 H Lab Interpretation (test cod e = 75343-1) Abnormal [facility] GLUCOSE (AUTOMATED)2023-11-23 17:19:25* Test Item Value Reference Range Interpretation Comme nts POCT GLU (test code = 4928035527) 137 mg/dL 70-110 H Lab Interpretation (test cod e = 44450-7) Abnormal [facility] GLUCOSE (AUTOMATED)2023-11-23 16:51:25* Test Item Value Reference Range Interpretation Comme nts POCT GLU (test code = 0664973000) 145 mg/dL 70-110 H Lab Interpretation (test cod e = 05875-6) Abnormal [facility] GLUCOSE (AUTOMATED)2023-11-23 16:51:25* Test Item Value Reference Range Interpretation Comme nts POCT GLU (test code = 1943101339) 145 mg/dL 70-110 H Lab Interpretation (test cod e = 45803-0) [facility]2023-11-23 16:51:25* Test Item Value Reference Range Interpretation Comme [facility] POCT GLU (test code = 6365496785) 145 mg/dL 70-110 H Lab Interpretation (test cod e = 65548-8) [facility] (for use with Heparin Infusion)2023-11-23 15:36:08* Test Item Value Reference Range Interpretation Comme [facility] APTT Patient (test code = 3173-2) 44 26-36 H Lab Interpretation (test cod e = 39013-1) [facility]2023-11-23 15:36:08* Test Item Value Reference Range Interpretation Comme [facility] APTT Patient (test code = 3173-2) 44 26-36 H Lab Interpretation (test cod e = 15174-4) [facility] In[facility]2023-11-23 15:36:08* Test Item Value Reference Range Interpretation Comme [facility] APTT Patient (test code = 3173-2) 44 26-36 H Lab Interpretation (test cod e = 31190-5) [facility]normal [facility] Whole Gcxti5928-27-94 15:21:35* Test Item Value Reference Range Interpretation Comme [facility] LACTIC ACID (test code = 8581302510) 4.80 mmol/L 0.50-2.20 H Lab Interpretation (test cod e = 10582-3) [facility]normal [facility] Whole Ikils2456-72-73 15:21:35* Test Item Value Reference Range Interpretation Comme [facility] LACTIC ACID (test code = 7134877511) 4.80 mmol/L 0.50-2.20 H Lab Interpretation (test cod e = 03682-9) Abnormal [facility] Whole Rxlts1014-80-13 15:21:35* Test Item Value Reference Range Interpretation Comme [facility] LACTIC ACID (test code = 9182956802) 4.80 mmol/L 0.50-2.20 H Lab Interpretation (test cod e = 73235-8) Abnormal [facility] GLUCOSE (AUTOMATED)2023-11-23 12:49:15* Test Item Value Reference Range Interpretation Comme nts POCT GLU (test code = 7964616221) 162 mg/dL 70-110 H Lab Interpretation (test cod e = 63978-9) Abnormal [facility] GLUCOSE (AUTOMATED)2023-11-23 12:49:15* Test Item Value Reference Range Interpretation Comme nts POCT GLU (test code = 0195549431) 162 mg/dL 70-110 H Lab Interpretation (test cod e = 16799-3) Abnormal [facility] GLUCOSE (AUTOMATED)2023-11-23 12:49:15* Test Item Value Reference Range Interpretation Comme nts POCT GLU (test code = 2951927795) 162 mg/dL 70-110 H Lab Interpretation (test cod e = 36718-4) [facility]normal [facility]24[facility] 08:44:42* Test Item Value Reference Range Interpretation Comme nts MAGNESIUM (test code = 4791478756) 1.9 mg/dL 1.7-2.4 Lab Interpretation (test cod e = 99588-5) Normal [facility] Metabolic Panel (NA, K, CL, CO2, GLUCOSE, BUN, CREATININE, CA)2023-11-23 08:44:42* Test Item Value Reference Range Interpretation Comme nts NA (test code = 9341766790) 136 mmol/L 135-145 K (test code = 3061177535) 3.7 mmol/L 3.5-5.0 CL (test code = 0570525940) 99 mmol/L 98-108 CO2 TOTAL (test code = 5818251714) 31 mmol/L 23-31 AGAP (test code = 5578317980) 6 2-16 BUN (test code = 3297233410) 20 mg/dL 7-23 GLUCOSE (test code = 3432244749) 184 mg/dL 70-110 H CREATININE (test code = 2160-0) 0.66 mg/dL 0.50-1.04 CALCIUM (test code = 1761399203) 7.9 mg/dL 8.6-10.6 L eGFR (test code = 93024-2) 106.4 mL/min/1.73m2 CKD-EPI eGFR (2020). Assuming creatinine has been stable day-to-day for at least three months, the eGFR indicates Category G1 (>= 90 mL/min/1.73 m2) Lab Interpretation (test code = 49598-9) Abnormal [facility]2024-05-06 08:44:42* Test Item Value Reference Range Interpretation Comme nts MAGNESIUM (test code = 0301832863) 1.9 mg/dL 1.7-2.4 Lab Interpretation (test cod e = 11534-2) Normal [facility] Metabolic Panel (NA, K, CL, CO2, GLUCOSE, BUN, CREATININE, CA)2023-11-23 08:44:42* Test Item Value Reference Range Interpretation Comme nts NA (test code = 6263241252) 136 mmol/L 135-145 K (test code = 0037677920) 3.7 mmol/L 3.5-5.0 CL (test code = 3682497806) 99 mmol/L 98-108 CO2 TOTAL (test code = 7768600671) 31 mmol/L 23-31 AGAP (test code = 1893734123) 6 2-16 BUN (test code = 6121952672) 20 mg/dL 7-23 GLUCOSE (test code = 5759354801) 184 mg/dL 70-110 H CREATININE (test code = 2160-0) 0.66 mg/dL 0.50-1.04 CALCIUM (test code = 1508053217) 7.9 mg/dL 8.6-10.6 L eGFR (test code = 12599-1) 106.4 mL/min/1.73m2 CKD-EPI eGFR (2020). Assuming creatinine has been stable day-to-day for at least three months, the eGFR indicates Category G1 (>= 90 mL/min/1.73 m2) Lab Interpretation (test code = 90905-6) Abnormal [facility]2024-05-06 08:44:42* Test Item Value Reference Range Interpretation Comme nts MAGNESIUM (test code = 7027080016) 1.9 mg/dL 1.7-2.4 Lab Interpretation (test cod e = 70492-3) Normal [facility] Metabolic Panel (NA, K, CL, CO2, GLUCOSE, BUN, CREATININE, CA)2023-11-23 08:44:42* Test Item Value Reference Range Interpretation Comme nts NA (test code = 4815939232) 136 mmol/L 135-145 K (test code = 3974385636) 3.7 mmol/L 3.5-5.0 CL (test code = 2072775799) 99 mmol/L 98-108 CO2 TOTAL (test code = 4291363264) 31 mmol/L 23-31 AGAP (test code = 7492908982) 6 2-16 BUN (test code = 0504891375) 20 mg/dL 7-23 GLUCOSE (test code = 0897382359) 184 mg/dL 70-110 H CREATININE (test code = 2160-0) 0.66 mg/dL 0.50-1.04 CALCIUM (test code = 8137415743) 7.9 mg/dL 8.6-10.6 L eGFR (test code = 93039-9) 106.4 mL/min/1.73m2 CKD-EPI eGFR (2020). Assuming creatinine has been stable day-to-day for at least three months, the eGFR indicates Category G1 (>= 90 mL/min/1.73 m2) Lab Interpretation (test code = 48967-4) [facility] use with [facility]arin Infusion)2023-11-23 08:29:39* Test Item Value Reference Range Interpretation Comme nts APTT Patient (test code = 3173-2) 49 26-36 H Lab Interpretation (test cod e = 77452-9) [facility]normal [facility]for use with Heparin Infusion)2023-11-23 08:29:39* Test Item Value Reference Range Interpretation Comme nts APTT Patient (test code = 3173-2) 49 26-36 H Lab Interpretation (test cod e = 18484-4) [facility]for use with Heparin Infusion)2023-11-23 08:29:39* Test Item Value Reference Range Interpretation Comme nts APTT Patient (test code = 3173-2) 49 26-36 H Lab Interpretation (test cod e = 72404-6) Abnormal [facility] with Eaeu1766-97-22 08:24:03* Test Item Value Reference Range Interpretation [...] g/dL 31.6-35.1 L RDW-SD (test code = 84697-7) 66.0 fL 39.0-49.9 H RDW-CV (test code = 788-0) 22.5 % 12.0-15.5 H PLT (test code = 777-3) 204 166-358 MPV (test code = 43463-3) 9.8 fL 9.5-12.9 NRBC/100 WBC (test code = 5869038790) 2.4 0.0-10.0 NRBC x10^3 (test code = 5486978451) 0.17 See_Comment [Automated messa ge] The system which generated this result transmitted reference range: 10*3/?L. The reference range was not used to interpret this result as normal/abnormal. GRAN MAT (NEUT) % (test code = 770-8) 80.3 % IMM GRAN % (test code = 5696616003) 1.70 % LYMPH % (test code = 736-9) 9.5 % MONO % (test code = 5905-5) 8.5 % EOS % (test code = 713-8) 0.0 % BASO % (test code = 706-2) 0.0 % GRAN MAT x10^3(ANC) (test code = 8761614358) 5.77 10*3/uL 1.88-7.09 IMM GRAN x10^3 (test code = 0487999735) 0.12 10*3/uL 0.00-0.06 H LYMPH x10^3 (test code = 731-0) 0.68 10*3/uL 1.32-3.29 L MONO x10^3 (test code = 742-7) 0.61 10*3/uL 0.33-0.92 EOS x10^3 (test code = 711-2) 0.03-0.39 L BASO x10^3 (test code = 704-7) 0.01-0.07 Lab Interpretation (test code = 18196-2) Abnormal [facility] with Atjw2822-03-18 08:24:03* Test Item Value Reference Range Interpretation [...] g/dL 31.6-35.1 L RDW-SD (test code = 40976-1) 66.0 fL 39.0-49.9 H RDW-CV (test code = 788-0) 22.5 % 12.0-15.5 H PLT (test code = 777-3) 204 166-358 MPV (test code = 85499-2) 9.8 fL 9.5-12.9 NRBC/100 WBC (test code = 8456266070) 2.4 0.0-10.0 NRBC x10^3 (test code = 2977934861) 0.17 See_Comment [Automated messa ge] The system which generated this result transmitted reference range: 10*3/?L. The reference range was not used to interpret this result as normal/abnormal. GRAN MAT (NEUT) % (test code = 770-8) 80.3 % IMM GRAN % (test code = 4893642793) 1.70 % LYMPH % (test code = 736-9) 9.5 % MONO % (test code = 5905-5) 8.5 % EOS % (test code = 713-8) 0.0 % BASO % (test code = 706-2) 0.0 % GRAN MAT x10^3(ANC) (test code = 9795946259) 5.77 10*3/uL 1.88-7.09 IMM GRAN x10^3 (test code = 8196746938) 0.12 10*3/uL 0.00-0.06 H LYMPH x10^3 (test code = 731-0) 0.68 10*3/uL 1.32-3.29 L MONO x10^3 (test code = 742-7) 0.61 10*3/uL 0.33-0.92 EOS x10^3 (test code = 711-2) 0.03-0.39 L BASO x10^3 (test code = 704-7) 0.01-0.07 Lab Interpretation (test code = 15351-4) Abnormal [facility] with Aaze2586-50-98 08:24:03* Test Item Value Reference Range Interpretation [...] g/dL 31.6-35.1 L RDW-SD (test code = 74543-9) 66.0 fL 39.0-49.9 H RDW-CV (test code = 788-0) 22.5 % 12.0-15.5 H PLT (test code = 777-3) 204 166-358 MPV (test code = 40615-2) 9.8 fL 9.5-12.9 NRBC/100 WBC (test code = 1458587179) 2.4 0.0-10.0 NRBC x10^3 (test code = 1446047092) 0.17 See_Comment [Automated messa ge] The system which generated this result transmitted reference range: 10*3/?L. The reference range was not used to interpret this result as normal/abnormal. GRAN MAT (NEUT) % (test code = 770-8) 80.3 % IMM GRAN % (test code = 8677290173) 1.70 % LYMPH % (test code = 736-9) 9.5 % MONO % (test code = 5905-5) 8.5 % EOS % (test code = 713-8) 0.0 % BASO % (test code = 706-2) 0.0 % GRAN MAT x10^3(ANC) (test code = 6540442220) 5.77 10*3/uL 1.88-7.09 IMM GRAN x10^3 (test code = 3985931708) 0.12 10*3/uL 0.00-0.06 H LYMPH x10^3 (test code = 731-0) 0.68 10*3/uL 1.32-3.29 L MONO x10^3 (test code = 742-7) 0.61 10*3/uL 0.33-0.92 EOS x10^3 (test code = 711-2) 0.03-0.39 L BASO x10^3 (test code = 704-7) 0.01-0.07 Lab Interpretation (test code = 22007-9) [facility]normal [facility] Whole Iqtiw3318-62-29 08:04:10* Test Item Value Reference Range Interpretation Comme nts LACTIC ACID (test code = 8334976315) 4.15 mmol/L 0.50-2.20 H Lab Interpretation (test cod e = 53541-3) Abnormal [facility] Whole Fceni0084-88-31 08:04:10* Test Item Value Reference Range Interpretation Comme nts LACTIC ACID (test code = 4638116871) 4.15 mmol/L 0.50-2.20 H Lab Interpretation (test cod e = 66779-1) Abnormal [facility] Whole Kxciv4218-80-58 08:04:10* Test Item Value Reference Range Interpretation Comme nts LACTIC ACID (test code = 2851592866) 4.15 mmol/L 0.50-2.20 H Lab Interpretation (test cod e = 94522-6) [facility]normal [facility] Wnvsw4909-15-86 05:11:29* Test Item Value Reference Range Interpretation Comme nts LACTIC ACID (test code = 8308258575) 4.23 mmol/L 0.50-2.20 H Lab Interpretation (test cod e = 03394-8) [facility] Yrsmw8085-93-44 05:11:29* Test Item Value Reference Range Interpretation Comme nts LACTIC ACID (test code = 3714931027) 4.23 mmol/L 0.50-2.20 H Lab Interpretation (test cod e = 33458-0) Abnormal [facility] Whole Nvahn9979-69-98 05:11:29* Test Item Value Reference Range Interpretation Comme nts LACTIC ACID (test code = 2775866465) 4.23 mmol/L 0.50-2.20 H Lab Interpretation (test cod e = 78601-2) [facility]normal [facility] Whole Vpsce3492-65-09 03:16:26* Test Item Value Reference Range Interpretation Comme nts LACTIC ACID (test code = 1068841525) 3.66 mmol/L 0.50-2.20 H Lab Interpretation (test cod e = 13452-2) Abnormal [facility] Whole Qfpfh1680-91-42 03:16:26* Test Item Value Reference Range Interpretation Comme nts LACTIC ACID (test code = 4634512367) 3.66 mmol/L 0.50-2.20 H Lab Interpretation (test cod e = 19354-0) Abnormal [facility] Whole Nbpdg1346-91-51 03:16:26* Test Item Value Reference Range Interpretation Comme nts LACTIC ACID (test code = 3648224923) 3.66 mmol/L 0.50-2.20 H Lab Interpretation (test cod e = 94108-5) Abnormal [facility] Whole Swjab8502-54-99 01:21:56* Test Item Value Reference Range Interpretation Comme nts LACTIC ACID (test code = 2966081970) 3.68 mmol/L 0.50-2.20 H Lab Interpretation (test cod e = 52483-6) Abnormal [facility] Whole Qkcxt6645-50-14 01:21:56* Test Item Value Reference Range Interpretation Comme nts LACTIC ACID (test code = 5497615443) 3.68 mmol/L 0.50-2.20 H Lab Interpretation (test cod e = 17143-9) [facility] Qzjmt6439-81-07 01:21:56* Test Item Value Reference Range Interpretation Comme nts LACTIC ACID (test code = 4971311215) 3.68 mmol/L 0.50-2.20 H Lab Interpretation (test cod e = 92126-3) Abnormal [facility] GLUCOSE (AUTOMATED)2023-11-23 01:07:13* Test Item Value Reference Range Interpretation Comme nts POCT GLU (test code = 3407637105) 193 mg/dL 70-110 H Lab Interpretation (test cod e = 69344-9) Abnormal [facility] GLUCOSE (AUTOMATED)2023-11-23 01:07:13* Test Item Value Reference Range Interpretation Comme nts POCT GLU (test code = 1652373800) 193 mg/dL 70-110 H Lab Interpretation (test cod e = 37357-5) Abnormal [facility] GLUCOSE (AUTOMATED)2023-11-23 01:07:13* Test Item Value Reference Range Interpretation Comme nts POCT GLU (test code = 8637195678) 193 mg/dL 70-110 H Lab Interpretation (test cod e = 33924-4) [facility] Temyc3398-50-50 23:56:10* Test Item Value Reference Range Interpretation Comme nts LACTIC ACID (test code = 6784513666) 3.82 mmol/L 0.50-2.20 H Lab Interpretation (test cod e = 86921-6) Abnormal [facility] Acid Whole Tvefp5898-99-26 23:56:10* Test Item Value Reference Range Interpretation Comme nts LACTIC ACID (test code = 4783698928) 3.82 mmol/L 0.50-2.20 H Lab Interpretation (test cod e = 77384-4) Abnormal [facility] Whole Bdqdy3910-47-86 23:56:10* Test Item Value Reference Range Interpretation Comme nts LACTIC ACID (test code = 4430192458) 3.82 mmol/L 0.50-2.20 H Lab Interpretation (test cod e = 76375-9) Abnormal [facility] GLUCOSE (AUTOMATED)2023-11-22 22:00:27* Test Item Value Reference Range Interpretation Comme nts POCT GLU (test code = 8741484837) 218 mg/dL 70-110 H Lab Interpretation (test cod e = 11566-8) Abnormal [facility] GLUCOSE (AUTOMATED)2023-11-22 22:00:27* Test Item Value Reference Range Interpretation Comme nts POCT GLU (test code = 6552689797) 218 mg/dL 70-110 H Lab Interpretation (test cod e = 76987-8) Abnormal [facility] GLUCOSE (AUTOMATED)2023-11-22 22:00:27* Test Item Value Reference Range Interpretation Comme nts POCT GLU (test code = 0757821339) 218 mg/dL 70-110 H Lab Interpretation (test cod e = 14420-3) [facility] Mhqbt5532-94-60 21:49:39* Test Item Value Reference Range Interpretation Comme nts LACTIC ACID (test code = 6806157280) 4.40 mmol/L 0.50-2.20 H Lab Interpretation (test cod e = 68431-4) Abnormal [facility] Whole Rabyk4899-29-59 21:49:39* Test Item Value Reference Range Interpretation Comme nts LACTIC ACID (test code = 1045444489) 4.40 mmol/L 0.50-2.20 H Lab Interpretation (test cod e = 38805-5) Abnormal [facility] Whole Iskzh5312-25-98 21:49:39* Test Item Value Reference Range Interpretation Comme nts LACTIC ACID (test code = 4886199790) 4.40 mmol/L 0.50-2.20 H Lab Interpretation (test cod e = 05790-9) Abnormal [facility] GLUCOSE (AUTOMATED)2023-11-22 21:02:20* Test Item Value Reference Range Interpretation Comme nts POCT GLU (test code = 7359477279) 208 mg/dL 70-110 H Lab Interpretation (test cod e = 38762-2) Abnormal [facility] GLUCOSE (AUTOMATED)2023-11-22 21:02:20* Test Item Value Reference Range Interpretation Comme nts POCT GLU (test code = 4187687725) 208 mg/dL 70-110 H Lab Interpretation (test cod e = 18005-2) Abnormal [facility] GLUCOSE (AUTOMATED)2023-11-22 21:02:20* Test Item Value Reference Range Interpretation Comme nts POCT GLU (test code = 8513857852) 208 mg/dL 70-110 H Lab Interpretation (test cod e = 88931-3) Abnormal [facility] Whole Lfwmh2548-16-16 20:01:46* Test Item Value Reference Range Interpretation Comme nts LACTIC ACID (test code = 3094582489) 6.14 mmol/L 0.50-2.20 H Lab Interpretation (test cod e = 81110-7) [facility] Eqaru0835-36-42 20:01:46* Test Item Value Reference Range Interpretation Comme nts LACTIC ACID (test code = 1453410007) 6.14 mmol/L 0.50-2.20 H Lab Interpretation (test cod e = 82521-5) [facility] Ewmbn0373-50-89 20:01:46* Test Item Value Reference Range Interpretation Comme nts LACTIC ACID (test code = 6251403723) 6.14 mmol/L 0.50-2.20 H Lab Interpretation (test cod e = 81154-4) Abnormal [facility] BZRWBPU6459-76-17 18:29:14 Procedure: ? RIGHT UPPER QUADRANT ULTRASOUND [...] are sonographically unremarkable inappearance. ?No evidence to ascites.[facility] 2023-11-22 18:29:14Procedure: ? RIGHT UPPER [...] are sonographically unremarkable inappearance. ?No evidence to ascites.[facility] Transthoracic echo (TTE)2023-11-22 18:16:22* Test Item Value Reference Range Interpretation Comme nts Height (test code = 8092466125) 63 in Weight (test code = 5644275544) 208 lbs Systolic BP (test code = 3622067834) 146 mmHg Diastolic BP (test code = 3449356526) 103 mmHg Heart Rate (test code = 1196669787) 112 bpm BSA (test code = 7271650120) 1.97 m2 LVOT diameter (test code = 0571271725) 2.5 cm LVOT area (test code = 0408550362) 5.00 cm2 LA size (test code = 1706651656) 4.2 cm MV Peak E Evette (test code = 7801910988) 128.5 cm/s MV Peak A Evette (test code = 7273570000) 62.4 cm/s E/A ratio (test code = 8099565566) 2.06 ratio E wave decelartion time (test code = 9541705403) 0.12 s MV Prop V (test code = 4843622930) 38.00 cm/s LAV(MOD-sp4) (test code = 2318832867) 68.70 mL Tapse (test code = 1253816828) 0.7 cm LA Volume Index (BP) (test code = 6650710625) 34.6 mL/m2 LA volume (BP) (test code = 4834648244) 68.0 mL LAV(MOD-sp2) (test code = 5936839178) 66.30 mL Ao peak evette (test code = 3060009997) 124.9 cm/s Ao max PG (test code = 3549708232) 6.20 mm[Hg] AV peak gradient (test code = 7273521693) 6.2 mmHg LVOT stroke volume (test code = 4050858104) 42.40 cm3 LVOT peak evette (test code = 7526700133) 67.8 cm/s LVOT mn grad (test code = 9648450337) 0.9 mmHg AV LVOT peak gradient (test code = 5262077857) 1.84 mmHg LVOT peak VTI (test code = 1603554724) 8.4 cm AV area peak evette (test code = 1865296390) 2.7 cm2 LV V1 mean (test code = 4851103648) 43.20 cm/s TR Peak Evette (test code = 5444691982) 247.7 cm/s Triscuspid Valve Regurgitation Peak Gradient (test code = 1436832211) 24.5 mmHg MR max PG (test code = 0855162561) 85.20 mm[Hg] MR max evette (test code = 1282497958) 461.50 cm/s Mr max evette (test code = 2776658025) 461.5 m/s AV regurgitation pressure 1/2 time (test code = 8957801862) 305.5 ms AI dec slope (test code = 1027564768) 432.10 cm/s2 AI max evette (test code = 2929420303) 450.60 cm/s AI max PG (test code = 5283466969) 81.20 mm[Hg] LVIDD (test code = 2654452756) 5.00 cm Left Ventricular End Diastolic Volume by Teichholz Method (test code = 2041176) 116.6 mL IVS (test code = 3142473556) 0.93 cm Interventricular Septum Diastolic Thickness by 2D (test code = 8160927) 0.93 cm LVPWD (test code = 4280144607) 1.00 cm PW (test code = 0930003515) 1.00 cm 0.6-1.1 EF(Teich) (test code = 8051297186) 33.90 % LVIDS (test code = 8865617996) 4.20 cm Left Ventricular End Systolic Volume by Teichholz Method (test code = 0693964) 77.1 mL FS (test code = 4566734310) 16 % EF - 2D (test code = 69731063) 33.90 % Radiology Study observation (narrative) (test code = 34062-7) LYNDSAY (test code = LYNDSAY) ?Left?Ventricle: Left [...] mL of Definity ultrasound enhancing agent used. [facility]2023-11-22 18:16:22* Test Item Value Reference Range Interpretation Comme nts Height (test code = 7374519158) 63 in Weight (test code = 7884605365) 208 lbs Systolic BP (test code = 0449175257) 146 mmHg Diastolic BP (test code = 9585710130) 103 mmHg Heart Rate (test code = 1599846333) 112 bpm BSA (test code = 6901633732) 1.97 m2 LVOT diameter (test code = 3090309063) 2.5 cm LVOT area (test code = 0131795921) 5.00 cm2 LA size (test code = 4936065480) 4.2 cm MV Peak E Evette (test code = 4768903930) 128.5 cm/s MV Peak A Evette (test code = 2758492547) 62.4 cm/s E/A ratio (test code = 4041166476) 2.06 ratio E wave decelartion time (test code = 3815352832) 0.12 s MV Prop V (test code = 3806149171) 38.00 cm/s LAV(MOD-sp4) (test code = 3204691859) 68.70 mL Tapse (test code = 2839148169) 0.7 cm LA Volume Index (BP) (test code = 1742074286) 34.6 mL/m2 LA volume (BP) (test code = 5335524159) 68.0 mL LAV(MOD-sp2) (test code = 1115558308) 66.30 mL Ao peak evette (test code = 8278677905) 124.9 cm/s Ao max PG (test code = 5523227839) 6.20 mm[Hg] AV peak gradient (test code = 6625777886) 6.2 mmHg LVOT stroke volume (test code = 5181132265) 42.40 cm3 LVOT peak evette (test code = 3349819953) 67.8 cm/s LVOT mn grad (test code = 6801959226) 0.9 mmHg AV LVOT peak gradient (test code = 2118421298) 1.84 mmHg LVOT peak VTI (test code = 8700837915) 8.4 cm AV area peak evette (test code = 0905499568) 2.7 cm2 LV V1 mean (test code = 5787246656) 43.20 cm/s TR Peak Evette (test code = 9615647634) 247.7 cm/s Triscuspid Valve Regurgitation Peak Gradient (test code = 2890530185) 24.5 mmHg MR max PG (test code = 5083565232) 85.20 mm[Hg] MR max evette (test code = 0675943145) 461.50 cm/s Mr max evette (test code = 0087829743) 461.5 m/s AV regurgitation pressure 1/2 time (test code = 9157187453) 305.5 ms AI dec slope (test code = 5371435695) 432.10 cm/s2 AI max evette (test code = 1259572015) 450.60 cm/s AI max PG (test code = 8684129525) 81.20 mm[Hg] LVIDD (test code = 4153323671) 5.00 cm Left Ventricular End Diastolic Volume by Teichholz Method (test code = 7804440) 116.6 mL IVS (test code = 3540551462) 0.93 cm Interventricular Septum Diastolic Thickness by 2D (test code = 6059909) 0.93 cm LVPWD (test code = 6216532677) 1.00 cm PW (test code = 3717377128) 1.00 cm 0.6-1.1 EF(Teich) (test code = 8506725252) 33.90 % LVIDS (test code = 5900350083) 4.20 cm Left Ventricular End Systolic Volume by Teichholz Method (test code = 7907280) 77.1 mL FS (test code = 8459687407) 16 % EF - 2D (test code = 34081435) 33.90 % Radiology Study observation (narrative) (test code = 17748-5) LYNDSAY (test code = LYNDSAY) ?Left?Ventricle: Left [...] mL of Definity ultrasound enhancing agent used. [facility] Acid Whole [id number] 17:29:30* Test Item Value Reference Range Interpretation Comme nts LACTIC ACID (test code = 9150827534) 4.00 mmol/L 0.50-2.20 H QUES Lab Interpretation (test cod e = 59840-2) Abnormal [facility] Acid Whole [id number] 17:29:30* Test Item Value Reference Range Interpretation Comme nts LACTIC ACID (test code = 2236440501) 4.00 mmol/L 0.50-2.20 H QUES Lab Interpretation (test cod e = 01506-6) Abnormal [facility] Acid Whole [id number] 17:29:30* Test Item Value Reference Range Interpretation Comme nts LACTIC ACID (test code = 0329984614) 4.00 mmol/L 0.50-2.20 H QUES Lab Interpretation (test cod e = 23659-7) Abnormal [facility] GLUCOSE (AUTOMATED)2023-11-22 17:01:27* Test Item Value Reference Range Interpretation Comme nts POCT GLU (test code = 7843956277) 152 mg/dL 70-110 H Notified Provide r Lab Interpretation (test code = 64945-7) Abnormal [facility] GLUCOSE (AUTOMATED)2023-11-22 17:01:27* Test Item Value Reference Range Interpretation Comme nts POCT GLU (test code = 8183425658) 152 mg/dL 70-110 H Notified Provide r Lab Interpretation (test code = 58426-7) Abnormal [facility] GLUCOSE (AUTOMATED)2023-11-22 17:01:27* Test Item Value Reference Range Interpretation Comme nts POCT GLU (test code = 5539313210) 152 mg/dL 70-110 H Notified Provide r Lab Interpretation (test code = 91958-0) [facility]normal [facility] Qlfoc6430-28-15 16:28:02* Test Item Value Reference Range Interpretation Comme nts IRON (test code = 4990439699) 44 ug/dL 50-160 L TIBC (test code = 9198853034) 395 ug/dL 250-410 % FE SAT (test code = 5802576877) 11 % 20-50 L Lab Interpretation (test cod e = 35245-2) Abnormal [facility] Lndiz1722-25-22 16:28:02* Test Item Value Reference Range Interpretation Comme nts IRON (test code = 2506411524) 44 ug/dL 50-160 L TIBC (test code = 0324183341) 395 ug/dL 250-410 % FE SAT (test code = 6114100849) 11 % 20-50 L Lab Interpretation (test cod e = 62639-6) Abnormal [facility] Alfsf5373-32-80 16:28:02* Test Item Value Reference Range Interpretation Comme nts IRON (test code = 5578945335) 44 ug/dL 50-160 L TIBC (test code = 7840916905) 395 ug/dL 250-410 % FE SAT (test code = 3915961035) 11 % 20-50 L Lab Interpretation (test cod e = 80900-1) Abnormal [facility]. Metabolic Panel (09329)2023-11-22 16:20:58* Test Item Value Reference Range Interpretation Comme nts NA (test code = 6867123090) 135 mmol/L 135-145 K (test code = 2174689228) 4.0 mmol/L 3.5-5.0 Slight hemolysis CL (test code = 3459777675) 108 mmol/L 98-108 CO2 TOTAL (test code = 8812102080) 20 mmol/L 23-31 L AGAP (test code = 9392339517) 7 2-16 BUN (test code = 6390510455) 20 mg/dL 7-23 Slight hemolysis GLUCOSE (test code = 0981968251) 136 mg/dL 70-110 H CREATININE (test code = 2160-0) 0.48 mg/dL 0.50-1.04 L TOTAL BILI (test code = 7371848593) 0.8 mg/dL 0.1-1.1 CALCIUM (test code = 5759991149) 6.7 mg/dL 8.6-10.6 L T PROTEIN (test code = 8645787188) 5.6 g/dL 6.3-8.2 L ALBUMIN (test code = 8561667252) 3.1 g/dL 3.5-5.0 L ALK PHOS (test code = 2583837475) 282 U/L 34-122 H Slight hemolysis ALTv (test code = 1742-6) 196 U/L 5-35 H AST(SGOT) (test code = 8253492860) 56 U/L 13-40 H Slight hemolysis eGFR (test code = 38451-2) 114.8 mL/min/1.73m2 CKD-EPI eGFR (2020). Assuming creatinine has been stable day-to-day for at least three months, the eGFR indicates Category G1 (>= 90 mL/min/1.73 m2) Lab Interpretation (test code = 03089-5) [facility]normal [facility] Met[facility] (74413)2023-11-22 16:20:58* Test Item Value Reference Range Interpretation Comme nts NA (test code = 2272617813) 135 mmol/L 135-145 K (test code = 8132569727) 4.0 mmol/L 3.5-5.0 Slight hemolysis CL (test code = 0622477015) 108 mmol/L 98-108 CO2 TOTAL (test code = 7995703337) 20 mmol/L 23-31 L AGAP (test code = 8302002103) 7 2-16 BUN (test code = 7031519503) 20 mg/dL 7-23 Slight hemolysis GLUCOSE (test code = 5640657285) 136 mg/dL 70-110 H CREATININE (test code = 2160-0) 0.48 mg/dL 0.50-1.04 L TOTAL BILI (test code = 8373644979) 0.8 mg/dL 0.1-1.1 CALCIUM (test code = 2594180462) 6.7 mg/dL 8.6-10.6 L T PROTEIN (test code = 9544895822) 5.6 g/dL 6.3-8.2 L ALBUMIN (test code = 2617887033) 3.1 g/dL 3.5-5.0 L ALK PHOS (test code = 8828409131) 282 U/L 34-122 H Slight hemolysis ALTv (test code = 1742-6) 196 U/L 5-35 H AST(SGOT) (test code = 2674544242) 56 U/L 13-40 H Slight hemolysis eGFR (test code = 69789-0) 114.8 mL/min/1.73m2 CKD-EPI eGFR (2020). Assuming creatinine has been stable day-to-day for at least three months, the eGFR indicates Category G1 (>= 90 mL/min/1.73 m2) Lab Interpretation (test code = 05418-4) [facility] (57211)2023-11-22 16:20:58* Test Item Value Reference Range Interpretation Comme nts NA (test code = 3451038724) 135 mmol/L 135-145 K (test code = 5863990050) 4.0 mmol/L 3.5-5.0 Slight hemolysis CL (test code = 6874624285) 108 mmol/L 98-108 CO2 TOTAL (test code = 5050894942) 20 mmol/L 23-31 L AGAP (test code = 0958281024) 7 2-16 BUN (test code = 6670227903) 20 mg/dL 7-23 Slight hemolysis GLUCOSE (test code = 2433701753) 136 mg/dL 70-110 H CREATININE (test code = 2160-0) 0.48 mg/dL 0.50-1.04 L TOTAL BILI (test code = 0288803061) 0.8 mg/dL 0.1-1.1 CALCIUM (test code = 5776118677) 6.7 mg/dL 8.6-10.6 L T PROTEIN (test code = 7861104686) 5.6 g/dL 6.3-8.2 L ALBUMIN (test code = 5036532906) 3.1 g/dL 3.5-5.0 L ALK PHOS (test code = 7344165310) 282 U/L 34-122 H Slight hemolysis ALTv (test code = 1742-6) 196 U/L 5-35 H AST(SGOT) (test code = 8883566023) 56 U/L 13-40 H Slight hemolysis eGFR (test code = 98316-2) 114.8 mL/min/1.73m2 CKD-EPI eGFR (2020). Assuming creatinine has been stable day-to-day for at least three months, the eGFR indicates Category G1 (>= 90 mL/min/1.73 m2) Lab Interpretation (test code = 09386-1) Abnormal [facility] CHEST PULMONARY [id number] 15:51:03PROCEDURE: CT ANGIO CHEST WITH CONTRAST - [...] cholecystectomy. A left adrenal 2.7cm nodule suspected. [facility] KFSJSDSDO2968-45-97 15:51:03PROCEDURE: CT ANGIO CHEST WITH CONTRAST - [...] cholecystectomy. A left adrenal 2.7cm nodule suspected. [facility]ano[facility] Acid Whole Llira7504-71-06 14:33:11* Test Item Value Reference Range Interpretation Comme nts LACTIC ACID (test code = 7623599337) 4.04 mmol/L 0.50-2.20 H QUES Lab Interpretation (test cod e = 46830-4) Abnormal [facility]anoLapaic Acid Whole Scuuw4483-16-99 14:33:11* Test Item Value Reference Range Interpretation Comme nts LACTIC ACID (test code = 4247104303) 4.04 mmol/L 0.50-2.20 H QUES Lab Interpretation (test cod e = 75964-5) Abnormal [facility]ano[facility] Acid Whole Dyqdg4825-71-98 14:33:11* Test Item Value Reference Range Interpretation Comme nts LACTIC ACID (test code = 5814843067) 4.04 mmol/L 0.50-2.20 H QUES Lab Interpretation (test cod e = 86695-8) Abnormal [facility] GLUCOSE (AUTOMATED)2023-11-22 13:26:51* Test Item Value Reference Range Interpretation Comme nts POCT GLU (test code = 2889328196) 180 mg/dL 70-110 H Notified Provide r Lab Interpretation (test code = 50509-4) Abnormal [facility] GLUCOSE (AUTOMATED)2023-11-22 13:26:51* Test Item Value Reference Range Interpretation Comme nts POCT GLU (test code = 9105382885) 180 mg/dL 70-110 H Notified Provide r Lab Interpretation (test code = 60012-6) Abnormal [facility] GLUCOSE (AUTOMATED)2023-11-22 13:26:51* Test Item Value Reference Range Interpretation Comme nts POCT GLU (test code = 9935991277) 180 mg/dL 70-110 H Notified Provide r Lab Interpretation (test code = 04534-5) Abnormal [facility]anoXR SHOULDER 2+ VW [id number] 09:05:30 Exam: XR SHOULDER 2+ VW RIGHT, 11/22/2023 1:45 AM. Ordering Physician: IVIS MCDERMOTT. History: R arm injury . Technique: Routine view(s) XR SHOULDER 2+ VW RIGHT. Comparison: None. Findings: No evidence of traumatic malalignment. No acute fracture. 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 Eburnation of thegreater tuberosity, sequela of chronic rotator cuff injury. No focalsofttissue swelling. Lungs are clear as visualized. Cervical fusion. [facility] SHOULDER 2+ VW [id number] 09:05:30 Exam: XR SHOULDER 2+ VW RIGHT, 11/22/2023 1:45 AM. Ordering Physician: IVIS MCDERMOTT. History: R arm injury . Technique: Routine view(s) XR SHOULDER 2+ VW RIGHT. Comparison: None. Findings: No evidence of traumatic malalignment. No acute fracture. 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 Eburnation of thegreater tuberosity, sequela of chronic rotator cuff injury. No focalsofttissue swelling. Lungs are clear as visualized. Cervical fusion. [facility] LOWER EXTREMITY VEIN WITH COMPRESSION [...] waveforms on the right. No DVT on theleft.[facility] LOWER EXTREMITY VEIN WITH COMPRESSION [...] waveforms on the right. No DVT on theleft.[facility]anoLactic Acid Whole Blood 2023-11-22 08:16:23* Test Item Value Reference Range [facility]ation [facility] (test code = 3622250535) 3.93 mmol/L 0.50-2.20 H Lab Interpretation (test cod e = 11316-9) Abnormal [facility]anoLactic Acid Whole Fsguo5205-19-87 08:16:23* Test Item Value Reference Range Interpretation Comme [facility] LACTIC ACID (test code = 9146113230) 3.93 mmol/L 0.50-2.20 H Lab Interpretation (test cod e = 17178-9) Abnormal [facility]anoLactic Acid Whole Chrhb9788-69-04 08:16:23* Test Item Value Reference Range Interpretation Comme [facility] LACTIC ACID (test code = 0737919626) 3.93 mmol/L 0.50-2.20 H Lab Interpretation (test cod e = 33749-3) Abnormal [facility]anoProthrombin Time / [id number] 05:00:31* Test Item Value Reference Range Interpretation Commitz [facility] PROTIME PATIENT (test code = 5964-2) 15.4 10.1-12.6 H INR (test code = 6301-6) 1.3 Normal INR <1.1; Warfarin Therapeutic range 2.0 to 3.0 or 2.5 to 3.5, depending upon the indications. Lab Interpretation (test code = 60614-3) Abnormal [facility] PlanoaPTT2024-05-05 05:00:31* Test Item Value Reference Range Interpretation Commitz [facility] APTT Patient (test code = 3173-2) 27 26-36 LYNDSAY (test code = LYNDSAY) The [facility] patient population mean normal value for aPTT is 30 seconds. Lab Interpretation (test code = 31168-6) Normal [facility]anoProthrombin Time / [id number] 05:00:31* Test Item Value Reference Range Interpretation Comme nts PROTIME PATIENT (test code = 5964-2) 15.4 10.1-12.6 H INR (test code = 6301-6) 1.3 Normal INR <1.1; Warfarin Therapeutic range 2.0 to 3.0 or 2.5 to 3.5, depending upon the indications. Lab Interpretation (test code = 78098-8) Abnormal [facility]anoaPTT2024-05-05 05:00:31* Test Item Value Reference Range Interpretation Comme nts APTT Patient (test code = 3173-2) LYNDSAY (test code = LYNDSAY) The [facility] patient population mean normal value for aPTT is 30 seconds. Lab Interpretation (test code = 96705-3) Normal [facility]anoProthrombin Time / [id number] 05:00:31* Test Item Value Reference Range Interpretation Comme nts PROTIME PATIENT (test code = 5964-2) 15.4 10.1-12.6 H INR (test code = 6301-6) 1.3 Normal INR <1.1; Warfarin Therapeutic range 2.0 to 3.0 or 2.5 to 3.5, depending upon the indications. Lab Interpretation (test code = 19187-8) Abnormal [facility]anoaPTT2024-05-05 05:00:31* Test Item Value Reference Range Interpretation Comme nts APTT Patient (test code = 3173-2) LYNDSAY (test code = LYNDSAY) The [facility] patient population mean normal value for aPTT is 30 seconds. Lab Interpretation (test code = 49608-9) Normal [facility] PlanoThyroid Stimulating Ftqoyyj1221-60-77 04:25:31 * Test Item Value Reference Range Interpretation Comme nts TSH (test code = 6480392996) 5.26 0.45-4.70 H Lab Interpretation (test cod e = 96485-8) Abnormal [facility]anoThyroid Stimulating Xrukkfq0015-16-10 04:25:31 * Test Item Value Reference Range Interpretation Comme nts TSH (test code = 8041547401) 5.26 0.45-4.70 H Lab Interpretation (test cod e = 80760-2) Abnormal [facility]anoThyroid Stimulating Otzcpbc9941-79-16 04:25:31 * Test Item Value Reference Range Interpretation Comme nts TSH (test code = 9989083340) 5.26 0.45-4.70 H Lab Interpretation (test cod e = 16861-9) Abnormal [facility] Pyrr9495-64-07 04:18:14Megan Rondon MD ? ? 11/21/2023 11:18 [...] of separately billable procedures and treating other patients.[facility] PlanoFr [id number] 04:11:28* Test Item Value Reference Range Interpretation Comme nts FREE T4 (test code = 3658028776) 1.07 0.78-2.20 Lab Interpretation (test cod e = 83229-9) Normal [facility] [id number] 04:11:28* Test Item Value Reference Range Interpretation Comme nts FREE T4 (test code = 6489256633) 1.07 0.78-2.20 Lab Interpretation (test cod e = 17695-8) Normal [facility] [id number] 04:11:28* Test Item Value Reference Range Interpretation Comme nts FREE T4 (test code = 3322402025) 1.07 0.78-2.20 Lab Interpretation (test cod e = 47990-2) Normal [facility] CHEST 1 [id number] 03:22:56Exam: Chest (1 View), 11/21/2023 9:15 PM. Ordering Physician: MEGAN RONDON. History: Chest pain. Technique: One view of the chest. Comparison: 12/11/2022. Findings: Cardiac silhouette is moderately enlarged. There is no pneumothorax. Thereis no consolidation or pleural effusion. Stable mild diffuse interstitialopacities are noted. Pleural and diaphragmatic contours are normal. Changesof anterior ce rvical discectomy and fusion are seen.[facility] CHEST 1 [id number] 03:22:56Exam: Chest (1 View), 11/21/2023 9:15 PM. Ordering Physician: MEGAN RONDON. History: Chest pain. Technique: One view of the chest. Comparison: 12/11/2022. Findings: Cardiac silhouette is moderately enl arged. There is no pneumothorax. Thereis no consolidation or pleural effusion. Stable mild diffuse interstitialopacities are noted. Pleural and diaphragmatic contours are normal. Changesof anterior cervical discectomy and fusion are seen. [facility] PlanoBLOOD NYEUOSA0876-09-63 07:00:10* Test Item Value Reference Range Interpretation Comme nts CULTURE (BEAKER) (test code = 1095) No growth in 5 days XR KNEE 3 VIEWS LEFT Non-Weight Kotdlot1958-85-62 09:27:00XR KNEE 3 VIEWS LEFT CLINICAL INDICATION: S/p fall COMPARISON: None FINDINGS: 3views of the left kne e. There is no fracture or malalignment. The femorotibial andfemoropatellar joint spaces are intact. No joint fluid is demonstrated.Surrounding soft tissues are unremarkable. Scattered atheroscleroticvascular calcifications.[facility]XR KNEE 3 VIEWS LEFT Non-Weight Mtiisis1730-98-13 09:27:00XR KNEE 3 VIEWS LEFT CLINICAL INDICATION: S/p fall COMPARISON: None FINDINGS: 3views of the left knee. There is no fracture or malalignment. The femorotibial andfemoropatellar joint spaces are intact. No joint fluid is demonstrated.Surrounding soft tissues are unremarkable. Scattered atheroscleroticvascular calcifications.[facility] CenterXR KNEE 3 VIEWS COHY5053-53-01 09:27:00 [facility] : 1970 Sex: FXR KNEE 3 VIEWS LEFT CLINICAL INDICATION: S/p fall COMPARISON: NoneFINDINGS: 3views of the left knee.There is no fracture or malalignment. The femorotibial andfemoropatellar joint spaces are intact.No joint fluid is demonstrated.Surrounding soft tissues are unremarkable. Scattered atheroscleroticvascular calcifications.IMPRESSION: No acute fracture or malalignment of the knee Electronically Signed By: Maxim Sultana09/08/2023 09:29 CDTWorkstation Name: [id number] tbzlc6472-71-48 08:53:50* Test Item Value Reference Range Interpretation Comme [facility] POC-Glucose Meter (test code = 1538) 101 mg/dL 70-110 : TESTED AT [facility] [address] [facility], [address]: Cloth Printing Back Tender/Proof Coin Collector ID = [id number] for Umeh, Akumbu Lab Interpretation (test code = 71166-7) Normal [facility] CenterPOC-Glucose nqijy4193-28-98 08:53:50* Test Item Value Reference Range Interpretation Comme nts POC-Glucose Meter (test code = 1538) 101 mg/dL 70-110 : TESTED AT [facility] [address] [facility], [address]: Cloth Printing Back Tender/Proof Coin Collector ID = [id number] for [facility] Lab Interpretation (test code = 14101-8) Normal [facility] KWIIH3443-73-36 08:53:50* Test Item Value Reference Range Interpretation Comme nts POC-GLUCOSE METER (BEAKER) (test code = 1538) 101 mg/dL 70-110 : TESTED AT [facility] [address] [facility], [address]: Cloth Printing Back Tender/Proof Coin Collector ID = [id number] for Marie Delacruz BASIC METABOLIC SHJXK6507-62-33 05:40:45* Test Item Value Reference Range Interpretation [...] GFR is not applicable for dialysis patients [employer] Print[employer] Back Tender ID - [id number] 05:40:45* Test Item Value Reference Range Interpretation Comme nts MAGNESIUM (BEAKER) (test cod e = 627) 2.1 mg/dL 1.6-2.6 Cloth Printing Back Tender ID - UGECHTTSVUISPWH1953-22-61 05:40:45* Test Item Value Reference Range Interpretation Comme nts PHOSPHORUS (BEAKER) (test co de = 604) 5.0 mg/dL 2.3-4.7 H [employer] Back Tender ID - ADMINCBC W/PLT COUNT & AUTO OERBOJVHBBQX9479-02-06 04:49:23* Test Item Value Reference Range Interpretation [...] code = 2801) 0.40 % 0.00-1.00 POCT-GLUCOSE [id number] 21:40:23* Test Item Value Reference Range Interpretation Comme nts POC-GLUCOSE METER (BEAKER) (test code = 1538) 144 mg/dL 70-110 H : TESTED AT [facility] [address] [facility], [address]: Cloth Printing Back Tender/Proof Coin Collector ID = [id number] for Baeza, Diana Venous doppler legs gidlxkgiq2844-04-97 14:27:12PV LAB - Lower Extremities DVT Study Demographics Patient Name YUE ROMERO Date of Study 09/07/2023 ESTELLE Age 53 Visit Number [id number] Gender Female Accession Number [id number] Dateof 1970 Referring [facility] Room Number 2263 Physician Branch Or Department Chief Librarian Adalberto Wood Interpreting John Solorio, Physician FellowProcedureType of Study: Veins: Lower Extremities DVT Study, VENOUS DOPPLER LEG, BILATERAL.Indications for Study:R/O DVT.Patient Status:Pending Discharge.Study Location:Vascular Lab.Technical Quality:Adequate visualization.Risk FactorsHistory of Disease + + + +!Saida gnosis !Date !Comments !+ + + +!Hi story/Risk Factors: !03/30/2023!CHF, CVA, HTN. !+ + + ------+ImpressionsRight Impression1. There is no deep venous obstruction [...] veins were adequately visualized. The bilateral venous sy stems were patent and compressible with no evidence of thrombus. The venous Doppler waveforms were phasic with respiration . Signature Velocities are measured in cm/s ; Diameters are measured in [facility] SouthwestVenous doppler legs noiaazgcx1415-43-37 14:27:12PV LAB - Lower Extremities DVT Study Demographics Patient Name YUE ROMERO Date of Study 09/07/2023 ESTELLE Age 53 Visit Number [id number] Gender Female Accession Number [id number] Date of 1970 Referring EDWARD FERRER Room Number 2263 Physician Branch Or Department Chief Librarian Adalberto Wood Interpreting John Solorio, Physician FellowProcedureType of Study: Veins: Lower Extremities DVT Study, VENOUS DOPPLER LEG, BILATERAL.Indications for Study:R/O DVT.Patient Status:Pending Dischar ge.Study Location:Vascular Lab.Technical Quality:Adequate visualization.Risk FactorsHistory of Disea se+ + + +!D iagnosis !Date !Comments !+ + + +!Hi story/Risk Factors: !03/30/2023!CHF, CVA, HTN. !+ + + --------+ImpressionsRight Impression1. There is no deep venous obstruction in the common femoral, profundafemoral, femoral, popliteal, posterior tibial or peroneal veins wherevisualized.2. There is no superficial venous obstruction in the great saphenous veinwhere visualized.Left Impression1. Thereis no deep venous obstruction in the common femoral, profundafemoral, femoral, popliteal, posteriortibial or peroneal veins wherevisualized.2. There is no superficial venous obstruction in the greatsaphenous veinwhere visualized. Conclusions Summary Venous duplex imaging and compression of the bilateral lower extremities were performed. The veins were adequately visualized. The bilateral venous systems were patent and compressible with no evidence of thrombus. The venous Doppler waveforms were phasic with respiration . Signature Velocities are measured in cm/s ; Diameters are measured in [facility] HHIGBFQXG7730-83-79 04:05:54* Test Item Value Reference Range Interpretation Comme nts MAGNESIUM (BEAKER) (test code = 627) 2.0 mg/dL 1.6-2.6 Specimen sligh tly hemolyzed Cl[employer] Print[employer] Back Tender ID - MADELINE [id number] 04:05:54* Test Item Value Reference Range Interpretation Comme nts PHOSPHORUS (BEAKER) (test code = 604) 4.5 mg/dL 2.3-4.7 Specimen sligh tly hemolyzed Cloth Printing Back Tender ID - MADELINE WBASIC METABOLIC [id number] 04:05:54* Test Item Value Reference Range Interpretation [...] GFR is not applicable for dialysis patients Cloth Printing Back Tender ID - MADELINE WCBC W/PLT COUNT & AUTO SGJJBLTPBNVC5175-99-84 03:40:48* Test Item Value Reference Range Interpretation [...] code = 2801) 0.30 % 0.00-1.00 POCT-GLUCOSE [id number] 21:28:35* Test Item Value Reference Range Interpretation Comme nts POC-GLUCOSE METER (BEAKER) (test code = 1538) 127 mg/dL 70-110 H : TESTED AT [place] [id number] [facility], [address]: Cloth Printing Back Tender/Proof Coin Collector ID = [id number] for Rosa Morinbubba POCT-GLUCOSE [id number] 18:49:21* Test Item Value Reference Range Interpretation Comme nts POC-GLUCOSE METER (BEAKER) (test code = 1538) 122 mg/dL 70-110 H : TESTED AT [address], [address]: Cloth Printing Back Tender/Proof Coin Collector ID = [id number] for Lauren Santillan POCT-GLUCOSE [id number] 13:27:27* Test Item Value Reference Range Interpretation Comme nts POC-GLUCOSE METER (BEAKER) (test code = 1538) 130 mg/dL 70-110 H : TESTED AT [place] [address] [facility], [address]: Cloth Printing Back Tender/Proof Coin Collector ID = [id number] for Lauren Santillan QQDVGQMGE7794-76-27 09:09:14* Test Item Value Reference Range Interpretation Comme nts MAGNESIUM (BEAKER) (test cod e = 627) 2.2 mg/dL 1.6-2.6 VCBKTVUJME1762-88-05 09:09:14* Test Item Value Reference Range Interpretation Comme nts PHOSPHORUS (BEAKER) (test co de = 604) 4.8 mg/dL 2.3-4.7 H BASIC METABOLIC [id number] 09:09:14* Test Item Value Reference Range Interpretation [...] is not applicable for dialysis patients POCT-GLUCOSE [id number] 08:33:30* Test Item Value Reference Range Interpretation Comme nts POC-GLUCOSE METER (BEAKER) (test code = 1538) 132 mg/dL 70-110 H : TESTED AT [facility] [address] [place], [address]: Cloth Printing Back Tender/Proof Coin Collector ID = [id number] for Lauren Santillan CBC W/PLT COUNT & AUTO [id number] 05:47:59* Test Item Value Reference Range Interpretation [...] code = 2801) 0.40 % 0.00-1.00 POCT-GLUCOSE [id number] 21:35:37* Test Item Value Reference Range Interpretation Comme nts POC-GLUCOSE METER (BEAKER) (test code = 1538) 129 mg/dL 70-110 H : TESTED AT [facility] [address] [place] [place], [address]: Cloth Printing Back Tender/Proof Coin Collector ID = [id number] for Ryan Morin MR Brain Without & With IV Wylvypjt4780-45-44 15:49:58MR BRAIN WITH & WITHOUT IV CONTRAST [...] limits. No obstructive paranasal sinus disease. Additionalfindings: None.[facility] CenterMR Brain Without & With IV Mwgcxvvr9487-80-09 15:49:58MR BRAIN WITH & WITHOUT IV CONTRAST [...] limits. No obstructive paranasal sinus disease. Additionalfindings: None.[facility] CenterMR BRAIN WITH & WITHOUT IV [id number] 15:49:58 [facility] : 1970 Sex: [...] Signed By: Zeinab Dempsey09/05/2023 15:53 CDTWorkstation Name: [id number] METER 2023-09-05 08:34:25* Test Item Value Reference Range Interpretation Comme nts POC-GLUCOSE METER (BEAKER) (test code = 1538) 115 mg/dL 70-110 H : TESTED AT [facility] [address] [facility], [address]: Cloth Printing Back Tender/Proof Coin Collector ID = [id number] for DOMINGA AMADOR BASIC METABOLIC [id number] 06:06:56* Test Item Value Reference Range Interpretation [...] GFR is not applicable for dialysis patients Cloth Printing Back Tender ID - ECINRZSELGRTTY9833-60-48 06:06:56* Test Item Value Reference Range Interpretation Comme nts MAGNESIUM (BEAKER) (test cod e = 627) 2.2 mg/dL 1.6-2.6 Cloth Printing Back Tender ID - [id number] 06:06:56* Test Item Value Reference Range Interpretation Comme nts PHOSPHORUS (BEAKER) (test co de = 604) 3.8 mg/dL 2.3-4.7 Cloth Printing Back Tender ID - ADMINCBC W/PLT COUNT & AUTO [id number] 05:29:32* Test Item Value Reference Range Interpretation [...] code = 2801) 0.50 % 0.00-1.00 POCT-GLUCOSE [id number] 04:55:18* Test Item Value Reference Range Interpretation Comme nts POC-GLUCOSE METER (BEAKER) (test code = 1538) 99 mg/dL 70-110 : TESTED AT [address], [address]: Cloth Printing Back Tender/Proof Coin Collector ID = [id number] for Mikel Kyakerry POCT-GLUCOSE [id number] 21:49:23* Test Item Value Reference Range Interpretation Comme nts POC-GLUCOSE METER (BEAKER) (test code = 1538) 124 mg/dL 70-110 H : TESTED AT [address], [address]: Cloth Printing Back Tender/Proof Coin Collector ID = [id number] for Mikel Kyanicolen POCT-GLUCOSE [id number] 15:55:53* Test Item Value Reference Range Interpretation Comme nts POC-GLUCOSE METER (BEAKER) (test code = 1538) 126 mg/dL 70-110 H : TESTED AT [address], [address]: Cloth Printing Back Tender/Proof Coin Collector ID = [id number] for Tramaine Daniels [id number] 12:37:56* Test Item Value Reference Range Interpretation Comme john PROCALCITONIN (LATOYA) (test code = 3036) < ng/mL <0.05 SEPSIS RISK (ng/mL)Low: 0.05-0.50Intermediate: 0.51-2.00High: >=2.01SARS- CoV2/Influenza/RSV [id number] 12:18:09* Test Item Value Reference Range Interpretation Comments SARS-COV2/RT-PCR (test code = 60394-5) Negative Negative The SARS-CoV-2 target nucleic acids [...] provider. Influenza A RT-PCR (test code = 88462-3) Negative Negative The Flu A target nucleic acids are not detected in this specimen. Influenza B RT-PCR (test code = 51541-9) Negative Negative The Flu B target nucleic acids are not detected in this specimen. RSV by RT-PCR (test code = 57997-5) Negative Negative The RSV target nucleic acids [...] SARS-CoV-2/Flu/RSV by their healthcare provider. Results from [facility] Xpert Xpress SARS-CoV-2/Flu/RSV test should be [...] the Act. Fact Sheet for Healthcare Providers:https://w [employer]/Docu ments/Xpert%20Xpres s%20SARS%20CoV-2/Fa ct%20Sheets/302-390 2%95HVCQ-GKM-7%20HE ALTHCARE%20PROVIDER S%20FACT%20SHEET.pd f Fact Sheet for Healthcare Patients:https://[employer]/Docum ents/Xpert%20Xpress %20SARS%20Cov-2/Fac t%20Sheets/302-3801 %97OSLY-ETV-9%20PAT IENT%20FACT%20SHEET .pdf Lab Interpretation (test code = 53240-3) [facility] [id number] 12:18:09* Test Item Value Reference Range Interpretation Comments SARS-COV2/RT-PCR (test code = 51348-9) Negative Negative The SARS-CoV-2 target nucleic acids [...] provider. Influenza A RT-PCR (test code = 58760-2) Negative Negative The Flu A target nucleic acids are not detected in this specimen. Influenza B RT-PCR (test code = 28074-0) Negative Negative The Flu B target nucleic acids are not detected in this specimen. RSV by RT-PCR (test code = 90878-3) Negative Negative The RSV target nucleic acids [...] the Act. Fact Sheet for Healthcare Providers:https://w [employer]/Docu ments/Xpert%20Xpres s%20SARS%20CoV-2/Fa ct%20Sheets/302-390 2%33OFVO-AEX-2%20HE ALTHCARE%20PROVIDER S%20FACT%20SHEET.pd f Fact Sheet for Healthcare Patients:https://ww [employer]/Docum ents/Xpert%20Xpress %20SARS%20Cov-2/Fac t%20Sheets/302-3801 %74JVTA-NAP-0%20PAT IENT%20FACT%20SHEET .pdf Lab Interpretation (test code = 05696-0) [facility]INFLUENZA/RSV [id number] 12:18:09* Test Item Value Reference Range Interpretation Comme nts SARS-COV2/RT-PCR (test code = 0138267) Negative Negative The SARS-CoV-2 t arget nucleic [...] provider. INFLUENZA A RT-PCR (test code = 5971725) Negative Negative The Flu A target nucleic acids are not detected in this specimen. INFLUENZA B RT-PCR (test code = 4223113) Negative Negative The Flu B target nucleic acids are not detected in this specimen. RSV RT-PCR (test code = 8339351) Negative Negative The RSV target n ucleic [...] SARS-CoV-2/Flu/RSV by their healthcare provider. Results from [facility] Xpert Xpress SARS-CoV-2/Flu/RSV test should be [...] 564(g) of the Act.Fact Sheet for Healthcare Providers:https://www.[employer]/Documents/Xpert%20Xpress%20SARS%20CoV-2/Fact%2 0eets/302-3952%81VFJG-MOG-6%20HEALTHCARE%20PROVIDERS%20FACT%20SHEET.pdfFact Sheet for Healthcare Patients:https://ww w.[employer]/Documents/Xpert%20Xpress%20SARS%20Cov-2/Fact%20Sheets/018-5065%20S ARS-COV-2%20PATIENT%20FACT%20SHEET.pdfPOCT-GLUCOSE [id number] 11:08:35* Test Item Value Reference Range Interpretation Comme nts POC-GLUCOSE METER (BEAKER) (test code = 1538) 111 mg/dL 70-110 H : TESTED AT [facility] [address] [facility], [address]: Cloth Printing Back Tender/Proof Coin Collector ID = [id number] for Tramaine Daniels POCT-GLUCOSE [id number] 08:16:42* Test Item Value Reference Range Interpretation Nilsa nts POC-GLUCOSE METER (BEAKER) (test code = 1538) 108 mg/dL 70-110 : TESTED AT [facility] [address] [facility], [address]: Cloth Printing Back Tender/Proof Coin Collector ID = [id number] for Beata Vargas MR spine lumbar without IV twtamosz3623-49-27 07:58:49MR LUMBAR SPINE WITHOUT IV CONTRAST, MR [...] Posterior ligament ossifications at the calcifications at A37-R41nrbssqt moderate spinal canal stenosisPosterior disc osteophyte at the T11-T12 level causing mild spinal canalstenosis The spinal cord is normal in caliber and signal intensity. There is no significant foraminal or spinal canal stenosis. 2.1 x 2.3 cm left adrenal nodule, incompletely characterized Paraspinal soft tissues are unremarkable. Lumbar spine: Postoperative changes from posterior decompression at the L3 and K1gtfsab. A 1.3 x 1.5 cm (AP by [...] facet arthropathy with moderatebilateral neural foraminal stenosisCHI [facility] Foundation HospitalMR spine lumbar without IV ukoxhntb1539-59-12 07:58:49MR LUMBAR SPINE WITHOUT IV CONTRAST, MR [...] Posterior ligament ossifications at the calcifications at B94-Y73cizkqec moderate spinal canal stenosisPosterior disc osteophyte at the T11-T12 level causing mild spinal canalstenosis The spinal cord is normal in caliber and signal intensity. There is no significant foraminal or spinal canal stenosis. 2.1 x 2.3 cm left adrenal nodule, incompletely characterized Paraspinal soft tissues are unremarkable. Lumbar spine: Postoperative changes from posterior decompression at the L3 and U6nyhdap. A 1.3 x 1.5 cm (AP by [...] facet arthropathy with moderatebilateral neural foraminal stenosisCHI [facility] Foundation HospitalMR thoracic spine without IV tgwfhxfe3716-11-00 07:58:49MR LUMBAR SPINE WITHOUT IV CONTRAST, MR [...] Posterior ligament ossifications at the calcifications at Y07-U14crpimex moderate spinal canal stenosisPosterior disc osteophyte at the T11-T12 level causing mild spinal canalstenosis The spinal cord is normal in caliber and signal intensity. There is no significant foraminal or spinal canal stenosis. 2.1 x 2.3 cm left adrenal nodule, incompletely characterized Paraspinal soft tissues are unremarkable. Lumbar spine: Postoperative changes from posterior decompression at the L3 and N8nrdhte. A 1.3 x 1.5 cm (AP by [...] facet arthropathy with moderatebilateral neural foraminal stenosisCHI [facility] Foundation HospitalMR thoracic spine without IV iaurowus8439-75-54 07:58:49MR LUMBAR SPINE WITHOUT IV CONTRAST, MR [...] Posterior ligament ossifications at the calcifications at E91-Y76ptedjho moderate spinal canal stenosisPosterior disc osteophyte at the T11-T12 level causing mild spinal canalstenosis The spinal cord is normal in caliber and signal intensity. There is no significant foraminal or spinal canal stenosis. 2.1 x 2.3 cm left adrenal nodule, incompletely characterized Paraspinal soft tissues are unremarkable. Lumbar spine: Postoperative changes from posterior decompression at the L3 and T7haonhd. A 1.3 x 1.5 cm (AP by [...] facet arthropathy with moderatebilateral neural foraminal stenosisCHI [facility] HospitalMR spine cervical without IV mwlfydho6486-04-39 07:58:49MR LUMBAR SPINE WITHOUT IV CONTRAST, MR [...] Posterior ligament ossifications at the calcifications at Q41-K71nltofdg moderate spinal canal stenosisPosterior disc osteophyte at the T11-T12 level causing mild spinal canalstenosis The spinal cord is normal in caliber and signal intensity. There is no significant foraminal or spinal canal stenosis. 2.1 x 2.3 cm left adrenal nodule, incompletely characterized Paraspinal soft tissues are unremarkable. Lumbar spine: Postoperative changes from posterior decompression at the L3 and U3ffncoy. A 1.3 x 1.5 cm (AP by [...] facet arthropathy with moderatebilateral neural foraminal stenosisCH[facility] CenterMR spine cervical without IV xjufxlcy6212-64-90 07:58:49MR LUMBAR SPINE WITHOUT IV CONTRAST, MR [...] Posterior ligament ossifications at the calcifications at C82-Y70ofzphvi moderate spinal canal stenosisPosterior disc osteophyte at the T11-T12 level causing mild spinal canalstenosis The spinal cord is normal in caliber and signal intensity. There is no significant foraminal or spinal canal stenosis. 2.1 x 2.3 cm left adrenal nodule, incompletely characterized Paraspinal soft tissues are unremarkable. Lumbar spine: Postoperative changes from posterior decompression at the L3 and F3okplgf. A 1.3 x 1.5 cm (AP by [...] facet arthropathy with moderatebilateral neural foraminal stenosisCHI [facility] Foundation HospitalMR CERVICAL SPINE WITHOUT IV [id number] 07:58:49 [facility] 1970 Sex: [...] ligament ossifications at the calcifications at T10- C79dvdimsc moderate spinal canal stenosisPosterior disc osteophyte at the T11- T12 level causing mild spinal canalstenosisThe spinal cord is normal in caliber and signal intensity. There is no significant foraminal or spinal canal stenosis.2.1 x 2.3 cm left adrenal nodule, incompletely characterizedParaspinal soft tissues are unremarkable.Lumbar spine:Postoperative changes from posterior decompression at the L3 and G6geckdw. A 1.3 x 1.5 cm (AP by [...] Signed By: Maxim Sultana09/04/2023 08:00 CDTWorkstation Name: [id number] THORACIC SPINE WITHOUT IV [id number] 07:58:49 [facility] : 1970 Sex: FMR [...] ligament ossifications at the calcifications at T10- P51tlyqzpv moderate spinal canal stenosisPosterior disc osteophyte at the T11- T12 level causing mild spinal canalstenosisThe spinal cord is normal in caliber and signal intensity. There is no significant foraminal or spinal canal stenosis.2.1 x 2.3 cm left adrenal nodule, incompletely characterizedParaspinal soft tissues are unremarkable.Lumbar spine:Postoperative changes from posterior decompression at the L3 and W6ujisvv. A 1.3 x 1.5 cm (AP by [...] Signed By: Maxim Sultana09/04/2023 08:00 CDTWorkstation Name: [id number] LUMBAR SPINE WITHOUT IV [id number] 07:58:49 [facility] : 1970 [...] ligament ossifications at the calcifications at T10- T92tlbnakn moderate spinal canal stenosisPosterior disc osteophyte at the T11- T12 level causing mild spinal canalstenosisThe spinal cord is normal in caliber and signal intensity. There is no significant foraminal or spinal canal stenosis.2.1 x 2.3 cm left adrenal nodule, incompletely characterizedParaspinal soft tissues are unremarkable.Lumbar spine:Postoperative changes from posterior decompression at the L3 and M9ulkxxl. A 1.3 x 1.5 cm (AP by [...] Signed By: Maxim Sultana09/04/2023 08:00 CDTWorkstation Name: [id number] 07:46:14 * Test Item Value Reference Range Interpretation Comme nts FERRITIN (BEAKER) (test code = 361) 31.77 ng/mL 5.00-275.00 Cloth Printing Back Tender ID - hgIRON, TIBC, % SAT. (WITHOUT FERRITIN)2023-09-04 07:24:52* Test Item Value Reference Range Interpretation Comme nts IRON (BEAKER) (test code = 547) 22.0 ug/dL 40.0-160.0 L TOTAL IRON BINDING CAPACITY (BEAKER) (test code = 769) 369 ug/dL 250-450 IRON % SATURATION (2) (BEAKE R) (test code = 2590) 6 % 20-55 L Cloth Printing Back Tender ID - hgCT spine thoracic without IV lzxhxgvg1993-19-87 05:42:45EXAM: CT THORACIC SPINE WITHOUT IV CONTRAST, [...] Bones/alignment: Age- indeterminate nondisplaced fracture of the X2nhxqfpjbh elements, predominantly involving the lamina and pinusprocess.. [...] Postoperative changes in themidline posterior lumbar soft tissues.[facility]CT spine lumbar without IV ugmsefhe2688-97-41 05:42:45EXAM: CT THORACIC SPINE WITHOUT IV CONTRAST, [...] Bones/alignment: Age- indeterminate nondisplaced fracture of the Q8vslcwhype elements, predominantly involving the lamina and pinusprocess.. [...] Postoperative changes in themidline posterior lumbar soft tissues.[facility] CenterCT spine thoracic without IV contrast 2023-09-04 05:42:45EXAM: [...] Bones/alignment: Age- indeterminate nondisplaced fracture of the J0uxcrhpgjd elements, predominantly involving the lamina and pinusprocess.. [...] Postoperative changes in themidline posterior lumbar soft tissues.[facility] CenterCT spine lumbar without IV llhzegaw8987-77-07 05:42:45EXAM: CT THORACIC SPINE WITHOUT IV CONTRAST, [...] Bones/alignment: Age- indeterminate nondisplaced fracture of the H7upzkpcfmm elements, predominantly involving the lamina and pinusprocess.. [...] Postoperative changes in themidline posterior lumbar soft tissues.[facility] CenterCT LUMBAR SPINE WITHOUT IV [id number] 05:42:45[facility] YUE[facility]ER ESTELLE : 1970 Sex: FEXAM: CT THORACIC SPINE [...] spine:Bones/alignment: Age- indeterminate nondisplaced fracture of the F9rvkbjdsrt elements, predominantly i nvolving the lamina and [...] Signed By: Suzan Weaver09/04/2023 05:45 CDTWorkstation Name: [id number] THORACIC SPINE WITHOUT IV [id number] 05:42:45 [facility] : 1970 Sex: [...] spine:Bones/alignment: Age- indeterminate nondisplaced fracture of the J8vlwikxixj elements, predominantly i nvolving the lamina and [...] Signed By: Suzan Weaver09/04/2023 05:45 CDTWorkstation Name: [id number] 2023-09-04 04:44:34* Test Item Value Reference Range Interpretation Comme nts FIBRINOGEN LEVEL (BEAKER) (t est code = 658) 410 mg/dl 225-434 Urinalysis without Qpqbedzeyym2101-71-08 03:58:52* Test Item Value Reference Range Interpretation Comme nts Color, UA (test code = 5778-6) Light Yellow Clarity, UA (test code = 5767-9) Hazy Specific Superior, UA (test code = 5811-5) 1.017 1.001-1.035 pH, UA (test code = 5803-2) 6.0 5.0-8.0 Protein, UA (test code = 66931-8) 10 mg/dL Negative A Glucose, UA (test code = 365) Negative Negative Ketones, UA (test code = 2514-8) Trace Negative A Bilirubin, UA (test code = 69603-9) Negative Negative Blood, UA (test code = 35105-8) Trace Negative A Nitrite, UA (test code = 5802-4) Negative Negative Leukocytes, UA (test code = 5799-2) Negative Negative Urobilinogen, UA (test code = 66462-7) 0.2 0.2-1.0 Specimen Source (test code = 2795) LYNDSAY (test code = LYNDSAY) Cloth Printing Back Tender ID - [auto]Cloth Printing Back Tender ID - tech Lab Interpretation (test code = 56820-9) Abnormal [facility] HospitalUrinalysis without Dimgnzbaqvt1383-40-41 03:58:52* Test Item Value Reference Range Interpretation Comme nts Color, UA (test code = 5778-6) Light Yellow Clarity, UA (test code = 5767-9) Hazy Specific Superior, UA (test code = 5811-5) 1.017 1.001-1.035 pH, UA (test code = 5803-2) 6.0 5.0-8.0 Protein, UA (test code = 07164-7) 10 mg/dL Negative A Glucose, UA (test code = 365) Negative Negative Ketones, UA (test code = 2514-8) Trace Negative A Bilirubin, UA (test code = 64793-8) Negative Negative Blood, UA (test code = 67923-6) Trace Negative A Nitrite, UA (test code = 5802-4) Negative Negative Leukocytes, UA (test code = 5799-2) Negative Negative Urobilinogen, UA (test code = 57386-6) 0.2 0.2-1.0 Specimen Source (test code = 2795) LYNDSAY (test code = LYNDSAY) Cloth Printing Back Tender ID - [auto]Cloth Printing Back Tender ID - tech Lab Interpretation (test code = 69024-3) Abnormal [facility] HospitalURINALYSIS WITHOUT JEFPQOTZCVE8899-39-12 03:58:52* Test Item Value Reference Range Interpretation [...] 0.2 0.2-1.0 SOURCE(BEAKER) (test code = 2795) Cloth Printing Back Tender ID - [auto]Cloth Printing Back Tender ID - techCBC W/PLT COUNT & AUTO [...] 2801) 0.70 % 0.00-1.00 Rapid drug screen, [id number] 02:20:15* Test Item Value Reference Range Interpretation Comme nts Barbiturate Screen (test code = 50208-6) Negative Negative Benzodiazepine Screen (test code = 52250-3) Negative Negative Cocaine (Metab.) Screen (test code = 3397-7) Positive Negative A Methadone Screen (test code = 78349-9) Negative Negative Opiate Screen (test code = 14925-4) Negative Negative Cannabinoid Screen (test code = 99787-6) Positive Negative A Amph/Methamph Screen (test code = 71383-9) Negative Negative Phencyclidine Screen (test code = 43205-0) Negative Negative pH, UA (test code = 5803-2) 6.0 5.0-8.0 LYNDSAY (test code = LYNDSAY) DRUG CUTOFF CONC.Cocaine 300 ng/mL Cannabinoid 50 ng/mLBenzodiazepine 200 ng/mLBarbiturate 200 ng/mLPhencyclidine 25 ng/mLOpiate 300 ng/mLMethadone 300 ng/mLAmphetamine/ 1000 ng/mL Methamphetamine This assay provides an unconfirmed qualitative test result for the clinical management of patients in emergency situations. Chain of custody not maintained. Some iuir-vam-nwzapgd medications, as well as adulterants, may cause inaccurate results. Clinical correlation should be applied. A more comprehensive drug screen or confirmation of a detected drug may be performed upon request.Cloth Printing Back Tender ID - ADMIN Lab Interpretation (test code = 33890-9) Abnormal [facility] HospitalRapid drug screen, [id number] 02:20:15* Test Item Value Reference Range Interpretation Comme nts Barbiturate Screen (test code = 11959-7) Negative Negative Benzodiazepine Screen (test code = 54363-9) Negative Negative Cocaine (Metab.) Screen (test code = 3397-7) Positive Negative A Methadone Screen (test code = 90242-3) Negative Negative Opiate Screen (test code = 16404-2) Negative Negative Cannabinoid Screen (test code = 04263-5) Positive Negative A Amph/Methamph Screen (test code = 31535-8) Negative Negative Phencyclidine Screen (test code = 00423-7) Negative Negative pH, UA (test code = 5803-2) 6.0 5.0-8.0 LYNDSAY (test code = LYNDSAY) DRUG CUTOFF CONC.Cocaine 300 ng/mL Cannabinoid 50 ng/mLBenzodiazepine 200 ng/mLBarbiturate 200 ng/mLPhencyclidine 25 ng/mLOpiate 300 ng/mLMethadone 300 ng/mLAmphetamine/ 1000 ng/mL Methamphetamine This assay provides an unconfirmed qualitative test result for the clinical management of patients in emergency situations. Chain of custody not maintained. Some zgef-gfa-dflapob medications, as well as adulterants, may cause inaccurate results. Clinical correlation should be applied. A more comprehensive drug screen or confirmation of a detected drug may be performed upon request.Cloth Printing Back Tender ID - ADMIN Lab Interpretation (test code = 92114-7) Abnormal [facility] HospitalR[facility]ID DRUG SCREEN, [id number] 02:20:15* Test Item Value Reference Range Interpretation [...] situations. Chain of custody not maintained. Some aerw-qqv-esbawtx medications, as well as adulterants, may cause inaccurate results. Clinical correlation should be applied. A more comprehensive drug screen or confirmation of a detected drug may be performed upon request.Cloth Printing Back Tender ID - ADMINB-TYPE NATRIURETIC FACTOR (BNP)2023-09-04 02:11:53* Test Item Value Reference Range Interpretation Comme nts B-TYPE NATRIURETIC PEPTIDE (BEAKER) (test code = 700) 1761 pg/mL 0-100 H Cloth Printing Back Tender ID - ADMINLACTIC ACID, [id number] 02:10:37* Test Item Value Reference Range Interpretation Comme nts LACTATE BLOOD VENOUS (2) (BEAKER) (test code = 2872) 1.04 mmol/L 0.50-2.00 Specimen slightl y hemolyzed Cloth Printing Back Tender ID - LKFWMMZWTNWZUTP0306-86-03 02:04:37* Test Item Value Reference Range Interpretation Comme nts PHOSPHORUS (BEAKER) (test code = 604) 4.2 mg/dL 2.3-4.7 Specimen sligh tly hemolyzed Cloth Printing Back Tender ID - ADMINCOMPREHENSIVE METABOLIC [id number] 02:04:37* Test Item Value Reference Range Interpretation [...] GFR is not applicable for dialysis patients Cloth Printing Back Tender ID - [id number] 02:04:36* Test Item Value Reference Range Interpretation Comme nts MAGNESIUM (LATOYA) (test code = 627) 2.1 mg/dL 1.6-2.6 Specimen sligh tly hemolyzed Cloth Printing Back Tender ID - ALPYFA-HDBNZ4215-84-16 01:45:13* Test Item Value Reference Range Interpretation [...] code = 760) 28.5 seconds 22.5-36.0 PROTHROMBIN TIME/QEZ6858-67-15 01:42:15* Test Item Value Reference Range Interpretation Comme nts PROTIME (LATOYA) (test code = 759) 15.8 seconds 11.9-14.2 H INR (LATOYA) (test code = 370) 1.25 <=5.90 RECOMMENDED COUMADIN/WARFARIN INR THERAPY RANGESSTANDARD DOSE: 2.0 - 3.0 Includes: PROPHYLAXIS for venous thrombosis, systemic embolization; TREATMENT for venous thrombosis and/or pulmonary embolus.HIGH RISK: Target INR is 2.5-3.5 for patients with mechanical heart valves.ZSV-KBCIHOD6395-49-16 00:00:00Ordered by an unspecified provider.[facility] CenterEKG-NLCNSRP4910-21-13 00:00:00Ordered by an unspecified provider.[facility] CenterLactic Acid Whole Gdhfn0057-68-08 20:51:22* Test Item Value Reference Range Interpretation Comme nts LACTIC ACID (test code = 2102560771) 1.56 mmol/L 0.50-2.20 Lab Interpretation (test cod e = 98287-6) [facility]BL[facility] VGJTXDU3648-04-76 07:00:09* Test Item Value Reference Range Interpretation Comme nts CULTURE (BEAKER) (test code = 1095) No growth in 5 days T-SPOT(R).BT7549-63-75 18:35:00* Test Item Value Reference Range Interpretation Comme nts T-SPOT.TB (test code = 16314-0) Negative SeeBelow Normal Value: Ne gativeA negative [...] CORRECTED FOR NEG CONTROL (test code = 19059-5) 0 NEGATIVE CONTROL (test code = 48082-8) Passed POSITIVE CONTROL (test code = 81391-4) Passed LYNDSAY (test code = LYNDSAY) [id number] [facility] CenterT-SPOT(R).MV4819-11-94 18:35:00* Test Item Value Reference Range Interpretation Comme nts T-SPOT.TB (test code = 3241577) Negative SeeBelow Normal Value: Ne gativeA negative [...] CORRECTED FOR NEG CONTROL (test code = 1005679) 1 PANEL B SPOT COUNT CORRECTED FOR NEG CONTROL (test code = 20150905) 0 NEGATIVE CONTROL (test code = 20150906) Passed POSITIVE CONTROL (test code = 20150907) Passed LYNDSAY (test code = LYNDSAY) [id number] [facility] CenterT-SPOT(R).TZ4641-22-57 18:35:00* Test Item Value Reference Range Interpretation Comme nts T-SPOT.TB (test code = 00987-5) Negative SeeBelow Normal Value: Ne gativeA negative [...] CORRECTED FOR NEG CONTROL (test code = 71010-9) 0 NEGATIVE CONTROL (test code = 46830-8) Passed POSITIVE CONTROL (test code = 78100-6) Passed LYNDSAY (test code = LYNDSAY) [id number] [facility] CenterTransesophageal [id number] 13:41:18 Transesophageal Echocardiography Report (CHETAN) Demographics Patient Name YUE ROMERO Date of Study 06/16/2023 ESTELLE Gender Female Visit Number [id number] Race Room Number 1055 Number Date of 1970 Referring Physician Age 53 year(s) Branch Or Department Chief Librarian Interpreting Physician Brian MDProcedure Type of Study [...] valve.Tricuspid Valve Partially visualized. Pulmonic Valve Not visualized.[facility] CenterTransesophageal echo 2023-06-16 13:41:18Transesophageal Echocardiography Report (CHETAN) Demographics Patient Name YUE ROMERO Date of Study 06/16/2023 ESTELLE Gender Female Visit Number [id number] Race Room Number 1055 Number Date of 1970 Referring Physician Age 53 year(s) Branch Or Department Chief Librarian Interpreting Physician Brian MDProcedure Type of Study [...] Tricuspid Valve Partially visualized. Pulmonic Valve Not visualized.[facility] CenterTransesophageal echo 2023-06-16 13:41:18Transesophageal Echocardiography Report (CHETAN) Demographics Patient Name YUE ROMERO Date of Study 06/16/2023 ESTELLE Gender Female Visit Number [id number] Race Room Number 1055 Number Date of 1970 Referring Physician Age 53 year(s) Branch Or Department Chief Librarian Interpreting Physician Brian MDProcedure Type of Study [...] valve.Tricuspid Valve Partially visualized. Pulmonic Valve Not visualized.[facility] CenterMRSA [id number] 09:55:41* Test Item Value Reference Range Interpretation Comme nts Result (test code = 6463-4) No MRSA isolated [facility] CenterMRSA tuwfgd8932-13-18 09:55:41* Test Item Value Reference Range Interpretation Comme nts Result (test code = 6463-4) No [facility] [id number] 09:55:41* Test Item Value Reference Range Interpretation Comme nts CULTURE ([employer]) (test code = 1095) No MRSA isolated CRYPTOCOCCAL [id number] 15:50:36* Test Item Value Reference Range Interpretation Comme nts CRYPTOCOCCAL ANTIGEN, SERUM ([employer]) (test code = 1828) Negative Negative, Interference SPUTUM CULTURE + GRAM [id number] 10:30:11* Test Item Value Reference Range Interpretation Comme nts CULTURE ([employer]) (test code = 1095) PSEUDOMONAS AERUGINOSA A [...] GRAM STAIN RESULT (BEAKER) (test code = 644730) 10-15 epithelial cells GRAM STAIN RESULT (BEAKER) (test code = 703378) 2+ gram positive cocci in chains and pairs GRAM STAIN RESULT (BEAKER) (test code = 041509) 1+ gram negative rods GRAM STAIN RESULT (BEAKER) (test code = 546512) 1+ yeast 2+ Normal respiratory rebel presentVANCOMYCIN LEVEL, [id number] 06:41:26* Test Item Value Reference Range Interpretation Comme nts VANCOMYCIN TROUGH (LATOYA) ( test code = 522) 17.0 ug/mL 10.0-20.0 Cloth Printing Back Tender ID - ADMINECHO W CONTRAST & [id number] 13:44:03Transthoracic Echocardiography Report (TTE) Demographics Patient Name YUE ROMERO Date of Study 06/14/2023 ESTELLE Gender Female Visit Number [id number] Race Room Number 1055 Number Date of 1970 Referring Aydee Go MD Physician Age 53 year(s) Branch Or Department Chief Librarian James Albarran AISHWARYA Interpreting Mauricio Bonilla, Physician [...] Peak Velocity: 0.85 m/s Peak Gradient: 2.89 [facility] & [id number] 13:44:03Transthoracic Echocardiography Report (TTE) Demographics Patient Name YUE ROMERO Date of Study 06/14/2023 ESTELLE Gender Female Visit Number [id number] Race Room Number 1055 Number Date of 1970 Referring Aydee Go MD Physician Age 53 year(s) Branch Or Department Chief Librarian James Albarran [facility] Interpreting Mauricio Bonilla Physician MDProcedure Type of [...] 0.85 m/s Peak Gradient: 2.89 mmHgCHI [facility] Foundation HospitalECHO W CONTRAST & [id number] 13:44:03Transthoracic Echocardiography Report (TTE) Demographics Patient Name YUE ROMERO Date of Study 06/14/2023 ESTELLE Gender Female Visit Number [id number] Race 388 Room Number 1055 Number Date of 1970 Referring Aydee Go MD Physician Age 53 year(s) Branch Or Department Chief Librarian James Albarran AISHWARYA Interpreting Physician Brian MDProcedure [...] Peak Velocity: 0.85 m/s Peak Gradient: 2.89 mmHgS[facility] Center HEMOGLOBIN [id number] 09:26:42* Test Item Value Reference Range Interpretation Comme [facility] HEMOGLOBIN A1C ELECTROPHORESIS (LINNEAAKER) (test code = 3811) 6.7 % See_Comment [...] 5.7- 6.4% indicates increased risk for diabetes (prediabetes)."Cloth Printing Back Tender ID - ADMOperator ID - ADMECG 12 [id number] 09:06:12Ventricular Rate 97 BPMAtrial Rate 97 BPMP-R Interval 146 msQRS Duration 96 msQ-T Interval 378 msQTC Calculation(Bazett) 480 msP [place] 68 degreesR [place] 107 degreesT [place] 18 degrees Suspect arm leadreversal, interpretation assumes no reversalNormal sinus rhythmRightward axisNonspecific T wave abnormalityAbnormal ECGWhen compared with ECG of 30-MAR-2023 13:06,QRS axis Shifted rightConfirmed by Luis Lopez ([id number]) on 06/14/2023 9:06:07 [facility] [id number] 09:06:12Ventricular Rate 97 BPMAtrial Rate 97 BPMP-R Interval 146 msQRS Duration 96 msQ-T Interval 378 msQTC Calculation(Bazett) 480 msP [place] 68 degreesR [place] 107 degreesT [place] 18 degrees Suspect arm leadreversal, interpretation assumes no reversalNormal sinus rhythmRightward axisNonspecific T wave abno rmalityAbnormal ECGWhen compared with ECG of 30-MAR-2023 13:06,QRS axis Shifted rightConfirmed by Luis Lopez ([id number]) on 06/14/2023 9:06:07 [facility] 12 [id number] 09:06:12Ventricular Rate 97 BPMAtrial Rate 97 BPMP-R Interval 146 msQRS Duration 96 msQ-T Interval 378 msQTC Calculation(Bazett) 480 msP [place] 68 degreesR [place] 107 degreesT [place] 18 degrees Suspect arm leadreversal, interpretation assumes no reversalNormal sinus rhythmRightward axisNonspecific T wave abnormalityAbnormal ECGWhen compared with ECG of 30-MAR-2023 13:06,QRS axis Shifted rightConfirmed by Luis Lopez ([id number]) on 06/14/2023 9:06:07 [facility] 12 [id number] 09:06:12Ventricular Rate 97 BPMAtrial Rate 97 BPMP-R Interval 146 msQRS Duration 96 msQ-T Interval 378 msQTC Calculation(Bazett) 480 msP [place] 68 degreesR [place] 107 degreesT [place] 18 degrees Suspect arm leadreversal, interpretation assumes no reversalNormal sinus rhythmRightward axisNonspecific T wave abno rmalityAbnormal ECGWhen compared with ECG of 30-MAR-2023 13:06,QRS axis Shifted rightConfirmed by Luis Lopez ([id number]) on 06/14/2023 9:06:07 [facility] HospitalBASI METABOLIC [id number] 04:48:18* Test Item Value Reference Range Interpretation [...] GFR is not applicable for dialysis patients Cloth Printing Back Tender ID - ADMINCBC (HEMOGRAM ONLY)2023-06-14 04:22:50* Test [...] 413) 0 /100 WBC 0-0 Strep pneumoniae [id number] 23:34:41* Test Item Value Reference Range Interpretation Comme nts Strep pneumoniae Antigen (test code = 80479-2) Presumptive negative for pneumococcal pneumonia - see [...] the test. Lab Interpretation (test code = 25242-8) Normal [facility] [id number] 23:34:41* Test Item Value Reference Range Interpretation Comme nts Strep pneumoniae Antigen (test code = 78056-4) Presumptive negative for pneumococcal pneumonia - see [...] the test. Lab Interpretation (test code = 38112-1) Normal [facility] HospitalTREP PNEUMONIAE [id number] 23:34:41* Test Item Value Reference Range Interpretation [...] detection limit of the test. Legionella antigen, [id number] 23:29:07* Test Item Value Reference Range Interpretation Comme nts Legionella Urine Antigen (test code = 56332-5) Negative - see comment Negative Negative for L. pneumophila serogroup 1 antigen, suggesting no recent or current infection with this serogroup. Legionellosis cannot be ruled out since other serogroups and species may cause disease. Lab Interpretation (test code = 96906-0) Normal [facility] CenterLegionella antigen, [id number] 23:29:07* Test Item Value Reference Range Interpretation Comme nts Legionella Urine Antigen (test code = 81593-7) Negative - see comment Negative Negative for L. pneumophila serogroup 1 antigen, suggesting no recent or current infection with this serogroup. Legionellosis cannot be ruled out since other serogroups and species may cause disease. Lab Interpretation (test code = 99571-2) Normal [facility] HospitalLEGIONELLA ANTIGEN, [id number] 23:29:07* Test Item Value Reference Range Interpretation Comme nts L. PNEUMOPHILA SEROGP 1 UR AG (BEAKER) (test code = 1156) Negative - see comment Negative Negative for L. pneumophila serogroup 1 antigen, suggesting no recent or current infection with this serogroup. Legionellosis cannot be ruled out since other serogroups and species may cause disease. Venous doppler arm, [id number] 20:05:32PV LAB - Upper Extremities Veins Demographics Patient Name YUE ROMERO Date of Study 06/13/2023 ESTELLE Age 53 Visit Number [id number] Gender Female Accession Number [id number] Date of 1970 Referring Marianela Burgess Room Number 1055 Physician Branch Or Department Chief Librarian Lisa Ruiz Interpreting John Solorio, Physician MD FellowProcedureType of Study: Veins: Upper Extremities Veins, [...] in cm/s ; Diameters are measured in [facility] doppler arm, [id number] 20:05:32PV LAB - Upper Extremities Veins Demographics Patient Name YUE ROMERO Date of Study 06/13/2023 ESTELLE Age 53 Visit Number [id number] Gender Female Accession Number [id number] Date of 1970 Referring Marianela Burgess Room Number 1057 Physician Branch Or Department Chief Librarian Lisa Ruiz Interpreting John Solorio Physician FellowProcedureType of Study: Veins: Upper Extremities Veins, VENOUS DOPPLER ARM, LEFT.Indications for Study:Left arm pain .Patient Status:MICHAEL.Study Locati on:Portable.Technical Quality:Adequate visualization. - Results were reported to:BETHLina@16:50 pm .Risk FactorsHistory of Disease+ + + [...] in cm/s ; Diameters are measured in [facility]Venous doppler arm, [id number] 20:05:32PV LAB - Upper Extremities Veins Demographics Patient Name YUE ROMERO Date of Study 06/13/2023 ESTELLE Age 53 Visit Number [id number] Gender Female Accession Number [id number] Date ofBirth 1970 Referring Audrastalin Burgess Room Number 1055 Physician Branch Or Department Chief Librarian Lisa Ruiz Interpreting John Solorio, Physician FellowProcedureType [...] in cm/s ; Diameters are measured in [facility]HIV-1 ANTIGEN WITH HIV-1/2 [id number] 18:36:40* Test Item Value Reference Range Interpretation Comme nts HIV-1 ANTIGEN WITH HIV 1\\T\\2 ANTIBODY (2) (LATOYA) (test code = 2586) Nonreactive Nonreactive MR lumbar spine without & with IV vzjmydfb0863-42-83 14:53:29MR LUMBAR SPINE WITH & WITHOUT IV [...] x 1.7x 1.7 cm. Dorsal paraspinal musculature M8altneygibzsouj. Postcontrast imaging demonstrates mild peripheralenhancement of the dorsal paraspinal fluid collection. Left adrenalgland 2.9 cm nodule.[facility] CenterMR lumbar spine without & with IV coounjgz7832-05-36 14:53:29MR LUMBAR SPINE WITH & WITHOUT IV [...] x 1.7x 1.7 cm. Dorsal paraspinal musculature A2snrmgnizdaibjo. Postcontrast imaging demonstrates mild peripheralenhancement of the dorsal paraspinal fluid collection. Left adrenalgland 2.9 cm nodule.[facility] CenterMR lumbar spine without & with IV izzujpkg1541-84-67 14:53:29MR LUMBAR SPINE WITH & WITHOUT IV [...] x 1.7x 1.7 cm. Dorsal paraspinal musculature H1mvpzbtpfbxhkgf. Postcontrast imaging demonstrates mild peripheralenhancement of the dorsal paraspinal fluid collection. Left adrenalgland 2.9 cm nodule.[facility] CenterMR LUMBAR SPINE WITH & WITHOUT IV [id number] 14:53:29[facility]Name[facility] : 1970 Sex: FMR LUMBAR SPINE WITH & WITHOUT IV CONTRASTINDICATION: Lumbar radiculopathy, prior surgery, new symptomsCOMPARISON: 03/30/2023TECHNIQUE: Multiplanar, multisequence MR images of the lumbar spine withand without contrast. FINDINGS: Numbering: Last fully formed disc space is designated L5-S1.Spinal cord: The conus medullaris is normal is size, signal intensity,and position, terminating at the D5cdsle. Reduced cauda equinaredundancy above the L3-4 level.Osseous [...] 1.7 x 1.7 cm. Dorsal paraspinal musculature H0vpztihxasuqmxr. Postcontrast imaging demonstrates mild peripheralenhancement of the [...] Signed By: Ryan Buckley06/13/2023 14:55 CDTWorkstation Name: [id number] KINASE (CK)2023-06-13 11:54:02* Test Item Value Reference Range Interpretation Comme nts CREATINE KINASE TOTAL (BEAKE R) (test code = 380) 43 U/L 29-200 Cloth Printing Back Tender ID - ADMINCOMPREHENSIVE METABOLIC [id number] 06:48:22* Test Item Value Reference Range Interpretation [...] GFR is not applicable for dialysis patients Cloth Printing Back Tender ID - ADMINPROTHROMBIN TIME/YGI4164-41-06 06:40:01* Test Item Value Reference Range Interpretation [...] code = 2801) 1.70 % 0.00-1.00 H [id number] 05:26:09* Test Item Value Reference Range Interpretation Comme nts MAGNESIUM (BEAKER) (test cod e = 627) 2.0 mg/dL 1.6-2.6 Cloth Printing Back Tender ID - XISFKUMJBWFZRSF6145-93-03 05:26:09* Test Item Value Reference Range Interpretation Comme nts PHOSPHORUS (BEAKER) (test co de = 604) 3.5 mg/dL 2.3-4.7 Cloth Printing Back Tender ID - ADMINBASIC METABOLIC [id number] 05:26:08* Test Item Value Reference Range Interpretation [...] GFR is not applicable for dialysis patients Cloth Printing Back Tender ID - ADMINCBC W/PLT COUNT & AUTO [id number] 05:11:15* Test Item Value Reference Range Interpretation [...] 0.70 % 0.00-1.00 XR spine lumbar 1 [id number] 10:32:20XR SPINE LUMBAR 1 VIEW CLINICAL INDICATION: L3-4 [facility]CT[facility]Y [facility] [id number] 10:32:20XR SPINE LUMBAR 1 VIEW CLINICAL INDICATION: L3-4 LAMINECTOMY [facility] 2023-06-01 10:32:20XR SPINE LUMBAR 1 VIEW CLINICAL INDICATION: L3-4 LAMINECTOMY [facility] 1 [id number] 10:32:20[facility]Name[facility]EE : 1970 Sex: FXR SPINE LUMBAR 1 VIEWCLINICAL INDICATION: L3-4 LAMINECTOMYCOMPARISON: NoneIMPRESSION:A single lateral view of the lumbar spine is obtained intraoperatively.The posterior approach surgical instrument is seen at the L3-L4 level,inferior to the L3 spinous process. Results were communicated to , who concurred with the above findings. Electronically Signed By: Maxim Ramos08/01/2022 10:34 CDTWo rkstation Name: [id number] SPINE LUMBAR 1 [id number] 10:29:18 [facility] : 1970 Sex: [...] Signed By: Maxim Ramos08/01/2022 10:31 CDTWorkstation Name: [id number] Screen, yqqxw1739-06-76 05:32:52* Test Item Value Reference Range Interpretation Comme nts Preg Test, Ur (test code = 2-1) Negative Negative Lab Interpretation (test cod e = 19426-3) Normal [facility] CenterPregnancy Screen, zhfij9682-81-54 05:32:52* Test Item Value Reference Range Interpretation Comme nts Preg Test, Ur (test code = 2-1) Negative Negative Lab Interpretation (test cod e = 98676-4) Normal [facility] CenterPREGNANCY SCREEN, [id number] 05:32:52* Test Item Value Reference Range Interpretation Comme nts TEST URINE (BEAKER ) (test code = 583) Negative Negative BASIC METABOLIC [id number] 23:30:54* Test Item Value Reference Range Interpretation [...] GFR is not applicable for dialysis patients Cloth Printing Back Tender ID - ADMINPT/TSLS0220-95-28 23:15:33* Test Item Value Reference Range Interpretation [...] H CT neck soft tissue without IV ovsnqasz6707-25-99 13:45:22EXAM: CT NECK SOFT TISSUE WITHOUT IV [...] Postoperative changes from anterior cervical discectomy fusionat C3-P5Jnhxinbr Lung Apices: NormalCHI [facility] Foundation HospitalCT neck soft tissue without IV iwavtzwu3502-85-22 13:45:22EXAM: CT NECK SOFT TISSUE WITHOUT IV [...] Postoperative changes from anterior cervical discectomy fusionat C3-K5Wlzdivor Lung Apices: NormalCHI [facility] Foundation HospitalCT neck soft tissue without IV yhapbeah2070-18-66 13:45:22EXAM: CT NECK SOFT TISSUE WITHOUT IV [...] Postoperative changes from anterior cervical discectomy fusionat C3-Q7Kikbaebo Lung Apices: NormalCHI Kaiser Foundation HospitalCT NECK SOFT TISSUE WITHOUT IV [id number] 13:45:22 [facility] : 1970 Sex: [...] Postoperative changes from anterior cervical discectomy fusionat C3-I3Cclnkfmy Lung Apices: NormalIMPRESSION:Exam limited by lack of intravenous contrast.1. 1.8 x 2.9 x 1.3 cm ill-defined fluid collection in the leftanterolateral neck soft tissues, suggesting evolving postoperativehemorrhage. Superimposed infection is not ex cluded.2. Retropharyngeal fluid and air measuring up to 0.8 cm in thickness,favored to be present postoperative right frontal edema. Superimposedinfection is not excluded.3. Postoperative changes from ACDF at C3- J8Maovauxkbeluii Signed By: Maxim Ramos07/31/2022 13:47 CDTWorkstation Name: [id number] METABOLIC [id number] 08:13:13* Test Item Value Reference Range Interpretation [...] GFR is not applicable for dialysis patients Cloth Printing Back Tender ID - BVCBC W/PLT COUNT & AUTO UXPFDQKPDONW0860-34-86 07:46:31* Test Item Value Reference Range Interpretation [...] 0.00-1.00 XR spine cervical 2 or 3 rdgci3264-48-91 20:24:23TECHNIQUE: Frontal and lateral views of the cervical spine. INDICATION: Postop Standing Films. COMPARISON: None.[facility] CenterXR spine cervical 2 or 3 kpbkx0582-59-20 20:24:23TECHNIQUE: Frontal and lateral views of the cervical spine. INDICATION: Postop Standing Films. COMPARISON: None.[facility] CenterXR spine cervical 2 or 3 lgdun1725-99-38 20:24:23TECHNIQUE: Frontal and lateral views of the cervical spine. INDICATION: Postop Standing Films. COMPARISON: None.[facility] CenterXR SPINE CERVICAL 2 OR 3 [id number] 20:24:23 [facility] : 1970 Sex: [...] Signed By: Zachariah Garcia05/28/2023 20:26 CDTWorkstation Name: [id number] fluoro non-specific up to 1 hour 2023-05-28 11:45:16This is a non-reportable study with no Radiologist dictation. Please refer to your PACS to review images, or Doc Flowsheets for documentation on studies without images.[facility] CenterFL fluoro non-specific up to 1 [id number] 11:45:16This is a non-reportable study with no Radiologist dictation. Please refer to your PACS to review images, or Doc Flowsheets for documentation on studies without images.[facility] CenterFL fluoro non-specific up to 1 [id number] 11:45:16This is a non-reportable study with no Radiologist dictation. Please refer to your PACS to review images, or Doc Flowsheets for documentation on studies without images.[facility] CenterFL FLUORO NON-SPECIFIC UP TO 1 [id number] 11:45:16 [facility] : 1970 Sex: FThis is a non- reportable study with no Radiologist dictation. Please refer to your PACS to review images, or Doc Flowsheets for documentation on studies without images.FL FLUORO NON-SPECIFIC UP TO 1 [id number] 10:13:02 [facility]Name[facility] : 1970 Sex: FTECHNIQUE: 1 lateral fluoroscopic image of the cervical spine forlocalization.Fluoroscopic time: 3second(s).FINDINGS:The surgical pointer is at C3-C4.The findings were discussed with Dr. Garcia in theOR who concurred withthe findings.IMPRESSION:Intraoperative localization plain film as described abo ve.Electronically Signed By: Derik Reyez05/28/2023 10:15 CDTWorkstation Name: [id number] Chavez, FUNFHMWWX2981-38-50 08:21:03* Test Item Value Reference Range Interpretation Comme nts GONADOTROPIN, CHORIONIC (HCG ) QUANT (BEAKER) (test code = 649) < mIU/mL 0-10 Non- Females: <10 mIU/mL Females: Gestation Age Reference Range(mIU/mL) 0.2-1 Week 5-50 1-2 Weeks 50-500 2-3 Weeks 100-5,000 3-4 Weeks 500-10,000 4-5 Weeks 1,000-50,000 5-6 Weeks 10,000-100,000 6-8 Weeks 15,000- 200,000 2-3 Months 10,000-100,000 Cloth Printing Back Tender ID - ADMINCULTURE, JCJOF7449-89-70 09:28:30SPECIMEN NUMBER: [id number] CULTURE, URINE SPECIMEN NUMBER: [id number] SPECIMEN COMMENT: URINE SOURCE: URINE REPORT STATUS: FINAL FINAL REPORT: 05/15/2023 >100,000 CFU/ML UROGENITAL REBEL PRESENT NOCOMMON PATHOGENS UNLESS OTHERWISE INDICATED, ALL TESTING PERFORMED AT [facility] [address] [place] [address] [employer] PLANT OPERATOR: JANNY STEINER M.D. CLIA NUMBER [id number] [place]. [id number], [id number] 12:02:50SPECIMEN NUMBER: [id number] CULTURE, URINE SPECIMEN NUMBER: [id number] SOURCE: URINE REPORT STATUS: FINAL FINAL REPORT: 05/13/2023 NO SPECIMEN RECEIVED FOR TESTING. CHARGES DELETED.BASIC METABOLIC [id number] 04:48:43* Test Item Value Reference Range Interpretation Comme nts GLUCOSE (test code = 2217) 117 MG/DL 70-99 H BUN (test code = 2208) 20 MG/DL 6-20 CREATININE (test code = 2214) 0.83 MG/DL 0.60-1.30 eGFR (2020 CKD-EPI) (test co de = 21305) 85 ML/MIN/1.73 >60 SODIUM (test code = [...] 12.7 SECONDS 12.5-14.7 INR (test code = 72465) 0.9 SEE BELOW CURRENT RECOMMENDATIONS ARE FOR AN INR OF 2.0-3.0 FOR ALL PATIENTS ON VITAMIN K ANTAGONISTS, EXCEPT THOSE WITH PROSTHETIC HEART VALVES, FOR WHOM INR OF 2.5-3.5 IS RECOMMENDED. UNLESS OTHERWISE INDICATED, ALL TESTING PERFORMED AT [facility] [address] [place] [address] [employer] OPERATOR: JANNY STEINER M.D. CLIA NUMBER [id number] [facility]. [id number] CBC W/AUTO DIFF WITH [id number] 01:54:17* Test Item Value Reference Range Interpretation [...] H ABS NUCLEATED RBCS (test code = 75312) 0.00 K/UL 0.00-0.11 ECG 12 [id number] 14:02:48Ventricular Rate 102 BPMAtrial Rate 102 BPMP-R Interval 146 msQRS Duration 90 msQ-T Interval 372 msQTC Calculation(Bazett) 484 msP [place] 11 degreesR [place] -53 degreesT [place] 29 degrees Sinus tachycardiaPossible Left atrial enlargementLeft axis deviationPoor R wave progression Cannot rule out Anterior infarct , age undetermined vs lead misplacementNonspecific T wave abnormalityProlonged QTAbnormal ECGNo previous ECGs availableConfirmed by David GARCIA BASANT ([id number]) on 04/06/2023 2:02:46 [facility] W CONTRAST & [id number] 13:11:39Transthoracic Echocardiography Report (TTE) Demographics Patient Name YUE ROMERO Date of Study 03/31/2023 ESTELLE Gender Female Visit Number [id number] Race 122 Room Number 2227 Number Date of 1970 Referring Physician Mariah Aldridge MD Age 53year(s) Branch Or Department Chief Librarian Wilmer Francois Supervisor Data Processing Josefina Corbett [facility] Interpreting John Solorio, Physician MDProcedure Type of Study TTE procedure:2DECHO [...] Velocity: 0.74 m/s Peak Gradient: 2.22 mmHgCHI [facility] Foundation HospitalECHO W CONTRAST & DOPPLER 2023-04-02 13:11:39Transthoracic Echocardiography Report (TTE) Demographics Patient Name YUE ROMERO Date of Study 03/31/2023 ESTELLE Gender Female Visit Number [id number] Race Room Number 2227 Number Date of 1970 Referring Physician Mariah Aldridge MD Age 53year(s) Branch Or Department Chief Librarian Wilmer Francois Supervisor Data Processing Josefina Corbett, [facility] Interpreting Physician Melody MDProcedure Type [...] Peak Velocity: 0.74 m/s Peak Gradient: 2.22 mmHgSaddleback Memorial Medical CenterXR chest 1 view portable / [id number] 15:39:07TECHNIQUE: Frontal view of the chest. INDICATION: CHf. COMPARISON: None. FINDINGS: LINES/TUBES: None. HEART AND MEDIASTINUM: Cardiomediastinal contour is within normallimits. LUNGS: The lungs are well inflated and clear. No consolidation orpulmonary edema. PLEURA: No pneumothorax. No significant pleural effusion. SOFT TISSUES AND BONES: Cervical spinal fixation hardware is noted.[facility]XR [facility] 1 view portable / [id number] 15:39:07TECHNIQUE: Frontal view of the chest. INDICATION: CHf. COMPARISON: None. FINDINGS: LINES/TUBES: None. HEART AND MEDIASTINUM: Cardiomediastinal contour is within normallimits. LUNGS: The lungs are well inflated and clear. No consolidation orpulmonary edema. PLEURA: No pneumothorax. No significant pleural effusion. SOFT TISSUES AND BONES: Cervical spinal fixation hardware is noted.[facility] CenterXR CHEST 1 VIEW PORTABLE / [id number] 15:39:07 [facility] : 1970 Sex: FTECHNIQUE: Frontal view of the chest.INDICATION: CHf.COMPARISON: None.FINDINGS:LINES/TUBES: None.HE ART AND MEDIASTINUM: Cardiomediastinal contour is within normallimits. LUNGS: The lungs are well inflated and clear. No consolidation orpulmonary edema.PLEURA: No pneumothorax. No significant pleuraleffusion.SOFT TISSUES AND BONES: Cervical spinal fixation hardware is noted.IMPRESSION:No acute card iopulmonary process.Electronically Signed By: Jose Carlos Lebron04/01/2023 15:41 CDTWorkstation Name: [id number] NATRIURETIC FACTOR (BNP)2023-04-01 14:15:07* Test Item Value Reference Range Interpretation Comme nts B-TYPE NATRIURETIC PEPTIDE ( BEAKER) (test code = 700) 192 pg/mL 0-100 H [employer] Printing Back Tender ID - ADMINMR spine cervical without IV [id number] 11:30:35MRI cervical spine without contrast CLINICAL HISTORY: [...] and paraspinal soft tissues are within normal limits.[facility] CenterMR CERVICAL SPINE WITHOUT IV [id number] 11:30:35 [facility] : 1970 Sex: [...] Signed By: Maxim Sultana03/31/2023 11:32 CDTWorkstation Name: [id number] METABOLIC [id number] 04:43:14* Test Item Value Reference Range Interpretation [...] GFR is not applicable for dialysis patients [employer] Back Tender GEOVANNA CORREA WC (HEMOGRAM ONLY)2023-03-31 04:20:07* Test [...] 0 /100 WBC 0-0 Arterial doppler legs jqgluzfkb3842-15-70 17:44:07PV LAB - Lower Extremity Arterial Duplex Demographics Patient Name YUE ROMERO Date of Study ESTELLE Age 53 Visit Number [id number] Gender Female Accession Number [id number] of 1970 Referring Mariah Aldridge, Room Number 2227 Physician Branch Or Department Chief Librarian Yovana Akins Interpreting John Solorio, Physician FellowProcedureType [...] + + + + + + !Prox POTATO PANCAKE FRIER ! !32 ! !Biphasic ! !60.9 ! !Triphasic ! +- + + + + + + + + + !Mid POTATO PANCAKE FRIER ! !25.9 ! !Biphasic ! !59.7 ! !Triphasic ! + + + + + + + + + + !Dist POTATO PANCAKE FRIER ! !33.2 ! !Biphasic ! !37.4 ! [...] + + + + + +[facility] Hospital[facility] do[facility] legs [id number] 17:44:07PV LAB - Lower Extremity Arterial Duplex Demographics Patient Name YUE ROMERO Date of Study 03/30/2023 ESTELLE Age 53 Visit Number [id number] Gender Female Accession Number [id number] Date of 1970 Referring Mariah Aldridge, Room Number 2227 Physician Branch Or Department Chief Librarian Yovana Akins Interpreting John Solorio, Physician FellowProcedureType [...] + + + + + + !Prox POTATO PANCAKE FRIER ! !32 ! !Biphasic ! !60.9 ! !Triphasic ! +--- + + + + + + + + + !Mid POTATO PANCAKE FRIER! !25.9 ! !Biphasic ! !59.7 ! !Triphasic ! + + + + + + + + + + !Dist POTATO PANCAKE FRIER ! !33.2 ! !Biphasic ! !37.4 ! [...] + + + + + +[facility] HospitalAB[facility] Only(Ankle/Brachial Index)2023-03-30 17:13:47PV LAB - Lower Extremity Arterial Procedure Demographics Patient Name YUE ROMERO Date of Study 03/30/2023 ESTELLE Age 53 Visit Number [id number] Gender Female Accession Number [id number] Date of 1970 Referring Mariah Aldridge, Room Number 2227 Physician Branch Or Department Chief Librarian Yovana Akins Interpreting John Solorio, Physician FellowProcedureType [...] in cm/s ; Diameters are [facility](Ankle/Brachial Index)2023-03-30 17:13:47PV LAB - Lower Extremity Arterial Procedure Demographics Patient Name YUE ROMERO Date of Study 03/30/2023 ESTELLE Age 53 Visit Number [id number] Gender Female Accession Number [id number] Date of 1970 Referring Mariah Aldridge, Room Number 2227 Physician Branch Or Department Chief Librarian Yovana Akins Interpreting John Solorio, Physician FellowProcedureType [...] in cm/s ; Diameters are measured in [facility]MR thoracic spine without IV [id number] 12:50:50MR THORACIC SPINE WITHOUT IV CONTRAST INDICATION: [...] abnormality. T10-11 moderate right neural foraminal stenosis txaW05-69 moderate bilateral foraminal stenosis due to facet hypertrophyand ligamentum flavum redundancy. Thoracic vertebrae maintain normal height. Mild multilevel degenerativedisc changes. No evidence of acute osseous fracture or traumaticmalalignment. No paraspinal mass. Conus medullaris terminates at L1. Redundant cauda equina partiallyimaged and further reported on MRI lumbar spine.[facility] CenterMR THORACIC SPINE WITHOUT IV [id number] 12:50:50 [facility] : 1970 Sex: [...] abnormality. T10-11 moderate right neural foraminal stenosis kkwG25-38 moderate bilateral foraminal stenosis due to facet [...] Signed By: Ryan Buckley03/30/2023 12:52 CDTWorkstation Name: [id number] spine lumbar without IV lxabrxbq4692-63-04 12:33:57MR LUMBAR SPINE WITHOUT IV CONTRAST INDICATION: Unlisted Reason for ExamConcern for cord compression COMPARISON: None TECHNIQUE: Multiplanar, multisequence MR images of the lumbar spinewithout contrast. FINDINGS: For the purposes of this dictation, the 5 lowermost hfncsv-upggsrogvpexy-fekn vertebral bodies are labeled L1-L5.Alignment of the [...] mild to moderatebilateral neural foraminal stenosisCHI [facility] Foundation HospitalMR LUMBAR SPINE WITHOUT IV [id number] 12:33:57 [facility] : 1970 Sex: FMR LUMBAR SPINE WITHOUT IV CONTRASTINDICATION: Unlisted Reason for ExamConcern for cord compressionCOMPARISON: NoneTECHNIQUE: Multiplanar, multisequence MR images of the lumbar spinewithout contrast. FINDINGS: For the purposes of this dictation, the 5 lowermost excziy-pzcuhgjduwjcn-ydld vertebral bodies are labeled L1- L5.Alignment of the lumbar spine is within normal limits. Vertebral body height is maintained. Bone marrow edema is seen at the inferior L3 and superior L4 vertebralbodies and bilateral L4 pedicles, favored to be degenerative in nature.Suggestion of a synovial cyst at the octkoG03-P50 level (series 301image eight).No spinal cord signal [...] flavum buckling versus synovial cyst at the ajyprJ26-H14 level (series 301image eight). MRI thoracic spine can beconsidered for further evaluation.7. Mild clumping of the cauda equina nerve roots, which is nonspecificbut may represent arachnoiditis. Postcontrast imaging can be consideredfor further evaluation.Electronically Signed By: Maxim Sultana03/30/2023 12:36 CDTWorkstation Name: [id number] 11:45:01* Test Item Value Reference Range Interpretation [...] 5.7- 6.4% indicates increased risk for diabetes (prediabetes)."[employer] Back Tender ID - ADMEEG AWAKE AND WVYQXW8674-56-29 09:57:53Steph Martinez MD 03/30/2023 9:59 AMELECTROENCEPHALOGRAM FOR [facility] Type: [facility], outpatient, EMUDATE(s) OF EE03/30/23DATE OF REPORT: 03/30/23MRN: [id number] of : 1970EE-1454Start time: 08:36Stop time: 09:23ICD-10: R56.9 CPT Code: 95082 (awake and asleep)HISTORY: 53 y/o female with [...] recordings. Steph Elias MD, MPHNeurophysiology/Epilepsy AttendingCH[facility] EEG AWAKE AND [id number] 09:57:53Steph Martinez MD 03/30/2023 9:[address] [facility] EEG Type: Inpatient, outpatient, EMUDATE(s) OF EE03/30/23DATE OF REPORT: 03/30/23MRN: [id number] of : 1970EE-1454Start time: 08:36Stop time: 09:23ICD-10: R56.9 CPT Code: 99128 (awake and asleep)HISTORY: 53 y/o female with [...] recordings. Steph Elias MD, MPHNeurophysiology/Epilepsy AttendingCH[facility] EEG AWAKE AND [id number] 09:57:53Steph Martinez MD 03/30/2023 9:[address] [facility] EEG Type: Inpatient, outpatient, EMUDATE(s) OF EE03/30/23DATE OF REPORT: 03/30/23MRN: [id number] of : 1970EE-1454Start time: 08:36Stop time: 09:23ICD-10: R56.9 CPT Code: 04983 (awake and asleep)HISTORY: 53 y/o female with [...] recordings. Steph Elias MD, MPHNeurophysiology/Epilepsy AttendingCH[facility] EEG AWAKE AND FOOIHA1933-04-16 09:57:53Steph Martinez MD 03/30/2023 9:[address] [facility] EEG Type: Inpatient, outpatient, EMUDATE(s) OF EE03/30/23DATE OF REPORT: 03/30/23MRN: [id number] of : 1970EE-1454Start time: 08:36Stop time: 09:23ICD-10: R56.9 CPT Code: 42367 (awake and asleep)HISTORY: 53 y/o female with [...] additional EEG recordings. Steph Elias MD, MPHNeurophysiology/Epilepsy AttendingSaddleback [facility] VALPROIC ACID LEVEL, [id number] 09:42:31* Test Item Value Reference Range Interpretation Comme nts VALPROIC ACID TOTAL (BEAKER) (test code = 924) 76 ug/mL 50-100 Therapeutic range for some clinical conditions may be >100 ug/mLUrinalysis w/Microscopic + Reflex to Beaojvr6442-58-25 08:43:51* Test Item Value Reference Range Interpretation Comme nts Color, UA (test code = 5778-6) Yellow Clarity, UA (test code = 5767-9) Clear Specific Superior, UA (test code = 5811-5) 1.033 1.001-1.035 pH, UA (test code = 5803-2) 6.0 5.0-8.0 Protein, UA (test code = 21968-6) 30 mg/dL Negative A Glucose, UA (test code = 365) Negative Negative Ketones, UA (test code = 2514-8) Negative Negative Bilirubin, UA (test code = 18572-5) Negative Negative Blood, UA (test code = 38651-1) Small Negative A Nitrite, UA (test code = 5802-4) Negative Negative Leukocytes, UA (test code = 5799-2) Negative Negative Urobilinogen, UA (test code = 44033-6) 0.2 0.2-1.0 RBC, UA (test code = 13946-0) 51 See_Comment [Automated message] The system which [...] Occasional Squam Epithel, UA (test code = 74788-7) See_Comment [Automated message] The system which generated this result transmitted reference range: /HPF. The reference range was not used to interpret this result as normal/abnormal. Specimen Source (test code = 2795) LYNDSAY (test code = LYNDSAY) Cloth Printing Back Tender ID - [auto]Cloth Printing Back Tender ID - tech Lab Interpretation (test code = 28407-2) Abnormal [facility] HospitalURINALYSIS W/ REFLEX URINE [id number] 08:43:51 * Test Item Value Reference Range [...] < /HPF SOURCE(BEAKER) (test code = 2795) [employer] Back Tender ID - [auto]Cl[employer]ing Back Tender ID - techCOMPREHENSIVE METABOLIC [id number] 04:37:29* Test Item Value Reference Range Interpretation [...] GFR is not applicable for dialysis patients Cloth Printing Back Tender ID - MATT BPT/DWXB2059-52-87 04:30:17* Test Item Value Reference Range Interpretation Comme nts PROTIME (BEAKER) (test code = 759) 13.8 seconds 11.9-14.2 INR (BEAKER) (test code = 370) 1.13 See_Comment [Automated [employer]] The system which generated this result [...] code = 413) 0 /100 WBC 0-0 IGE-[id number] 00:00:00Ordered by an unspecified provider.[facility] CenterEKG-HINQVSS1666-30-30 00:00:00Ordered by an unspecified provider. [facility] CenterEKG-CENPFMS5972-81-78 00:00:00Ordered by an unspecified provider.[facility] CenterMAGNESIUM2023-05-25 17:14:06* Test Item Value Reference Range Interpretation Comme nts MAGNESIUM (test code = 4020998105) 1.9 mg/dL 1.7-2.4 Lab Interpretation (test cod e = 79056-4) Normal [facility]anoCOMP. METABOLIC PANEL (14560)2022-12-11 15:16:25* Test Item Value Reference Range Interpretation Comme nts NA (test code = 5974936397) 139 mmol/L 135-145 K (test code = 9727272246) 3.5 mmol/L 3.5-5.0 CL (test code = 8312563550) 107 mmol/L 98-108 CO2 TOTAL (test code = 7431649132) 24 mmol/L 23-31 AGAP (test code = 2113665119) 8 2-16 BUN (test code = 4645750015) 9 mg/dL 7-23 GLUCOSE (test code = 7043357586) 129 mg/dL 70-110 H CREATININE (test code = 5324899951) 0.68 mg/dL 0.50-1.04 TOTAL BILI (test code = 1317774405) 0.5 mg/dL 0.1-1.1 CALCIUM (test code = 7997466315) 8.9 mg/dL 8.6-10.6 T PROTEIN (test code = 5255597803) 6.3 g/dL 6.3-8.2 ALBUMIN (test code = 1951822139) 3.8 g/dL 3.5-5.0 ALK PHOS (test code = 1732693162) 87 U/L 34-122 ALTv (test code = 1742-6) 24 U/L 5-35 AST(SGOT) (test code = 1832626795) 21 U/L 13-40 eGFR (test code = 2057550110) 91.6 mL/min/1.73m2 LYNDSAY (test code = LYNDSAY) [...] imaging tests). Lab Interpretation (test code = 91551-2) Abnormal [facility]anoTROPONIN [id number] 15:10:45* Test Item Value Reference Range Interpretation Comme nts TROPONIN I (test code = 8739191675) 0.015 ng/mL <=0.034 LYNDSAY (test code = [...] of biotin. Lab Interpretation (test code = 63614-8) Normal [facility]anoN-TERMINAL GZS-[id number] 15:07:48* Test Item Value Reference Range Interpretation Comme nts NT-proBNP (test code = 8626343066) 1460 pg/mL <=125 H LYNDSAY (test code = LYNDSAY) Biotin has been reported to cause a negative bias, interpret results relative to patient's use of biotin. Lab Interpretation (test code = 11030-1) Abnormal [facility] PlanoD-HISTZ2609-83-48 14:45:24* Test Item Value Reference Range Interpretation Comments D-DIMER (test code = 8191322253) 0.99 See_Comment H [Automated message] The system [...] a diagnosis. Lab Interpretation (test code = 94732-5) Abnormal [facility] WITH [id number] 14:14:48* Test Item Value Reference Range Interpretation Comme nts WBC (test code = 6690-2) 7.86 See_Comment [Automated [employer]] The system which generated this result transmitted reference range: 4.30 - 11.10 10*3/?L. The reference range was not used to interpret this result as normal/abnormal. RBC (test code = 789-8) 5.13 See_Comment [Automated [employer]] The system which generated this result [...] g/dL 31.6-35.1 L RDW-SD (test code = 00236-0) 47.8 fL 39.0-49.9 RDW-CV (test code = 788-0) 16.9 % 12.0-15.5 H PLT (test code = 777-3) 507 See_Comment H [Automated [employer]] The system which generated this result transmitted reference range: 166 - 358 10*3/?L. The reference range was not used to interpret this result as normal/abnormal. MPV (test code = 33649-3) 8.2 fL 9.5-12.9 L NRBC/100 WBC (test code = 7407525151) 0.0 See_Comment [Automated me ssage] The system which generated this result transmitted reference range: 0.0 - 10.0 /100 WBCs. The reference range was not used to interpret this result as normal/abnormal. NRBC x10^3 (test code = 5858457126) See_Comment [Automated messa ge] The system which generated this result transmitted reference range: 10*3/?L. The reference range was not used to interpret this result as normal/abnormal. GRAN MAT (NEUT) % (test code = 770-8) 64.5 % IMM GRAN % (test code = 7600782035) 0.30 % LYMPH % (test code = 736-9) 25.6 % MONO % (test code = 5905-5) 7.5 % EOS % (test code = 713-8) 1.0 % BASO % (test code = 706-2) 1.1 % GRAN MAT x10^3(ANC) (test code = 7578175272) 5.07 10*3/uL 1.88-7.09 IMM GRAN x10^3 (test code = 6710657478) 0.00-0.06 LYMPH x10^3 (test code = 731-0) 2.01 10*3/uL 1.32-3.29 MONO x10^3 (test code = 742-7) 0.59 10*3/uL 0.33-0.92 EOS x10^3 (test code = 711-2) 0.08 10*3/uL 0.03-0.39 BASO x10^3 (test code = 704-7) 0.09 10*3/uL 0.01-0.07 H Lab Interpretation (test code = 22213-4) Abnormal [facility]anoRPR2023-01-17 13:17:22* Test Item Value Reference Range Interpretation Comme nts RPR SCREEN ([employer]) (test co de = 420) Nonreactive Nonreactive HEMOGLOBIN [id number] 10:39:49* Test Item Value Reference Range Interpretation Comme nts HEMOGLOBIN A1C ELECTROPHORESIS ([employer]) (test code = 3811) 5.8 % See_Comment H [Automated me ssage] The system which generated this result transmitted reference range: <=5.6%. The reference range was not used to interpret this result as normal/abnormal. "The A1c is measured using a [facility]-certified method. HbA1c value equal to or greater than 6.5% as the diagnosis cutoff for diabetes. An HbA1c value of 5.7- 6.4% indicates increased risk for diabetes (prediabetes)."Cl[employer] Printing Back Tender ID - ADM VITAMIN [id number] 22:48:27* Test Item Value Reference Range Interpretation Comme nts VITAMIN B12 (BEAKER) (test c ode = 774) 227 pg/mL 213-816 Cl[employer] Printing Back Tender ID - MARCOTSH/FREE T4 IF XYQJCRAWR0192-78-38 22:08:28* Test Item Value Reference Range Interpretation Comme nts THYROID STIMULATING HORMONE (BEAKER) (test code = 772) 3.309 uIU/mL 0.350-4.940 Cloth Printing Back Tender ID - JSHIV-1 ANTIGEN WITH HIV-1/2 XVAQZOMS9810-60-82 22:08:28* Test Item Value Reference Range Interpretation Comme nts HIV-1 ANTIGEN WITH HIV 1\\T\\2 ANTIBODY (2) (BEAKER) (test code = 2586) Nonreactive Nonreactive [employer] Back Tender ID - JSC-REACTIVE AKSKWZA2562-38-55 21:49:44* Test Item Value Reference Range Interpretation Comme nts C-REACTIVE PROTEIN (BEAKER) (test code = 676) 0.35 mg/dL 0.00-0.50 Cloth Printing Back Tender ID - JSCOMPREHENSIVE METABOLIC [id number] 21:49:43* Test Item Value Reference Range Interpretation [...] GFR is not applicable for dialysis patients Cl[employer]ing Back Tender ID - JSLIPID TBHSG7386-57-74 21:49:43* Test Item Value Reference Range Interpretation Comme nts TRIGLYCERIDES (BEAKER) (test code = 540) 161 mg/dL CHOLESTEROL (BEAKER) (test c ode = 631) 149 mg/dL HDL CHOLESTEROL (BEAKER) (te st code = 976) 43 mg/dL LDL CHOLESTEROL CALCULATED ( [place]-TechAKER) (test code = 633) 74 mg/dL Triglyceride Reference Range: Low Risk <150 Borderline 150-199 High Risk 200-499 Very High Risk >=500Cholesterol Reference Range: Low Risk <200 Borderline 200-239 High Risk >240HDL Cholesterol Reference Range: Low Risk >=60 High Risk <40LDL Cholesterol Reference Range: Optimal <100 Near Optimal 100-129 Borderline 130-159 High 160-189 Very High >=190 Cloth Printing Back Tender ID - JSCBC W/PLT COUNT & AUTO GKOWSDHOZDIT7061-24-60 21:34:03* Test Item Value Reference Range Interpretation [...] Interpretation Comme nts Height (test code = 6205022651) in Weight (test code = 4349436996) lbs Systolic BP (test code = 5745538176) mmHg Diastolic BP (test code = 3530222966) mmHg Heart Rate (test code = 0415791479) bpm BSA (test code = 2459538214) 2.00 m2 Ao root diam (test code = 5226576008) 3.20 cm Aortic root (test code = 1191711492) 3.2 cm Ao root annulus (test code = 0975671337) 3.2 cm LVOT diameter (test code = 2150962446) 1.99 cm LVOT area (test code = 9831770994) 3.10 cm2 LVIDD (test code = 9856929591) 5.10 cm Left Ventricular End Diastolic Volume by Teichholz Method (test code = 5909457) 123.0 mL IVS (test code = 3861168075) 1.34 cm Interventricular Septum Diastolic Thickness by 2D (test code = 6451058) 1.34 cm LVPWD (test code = 6380461652) 1.34 cm PW (test code = 6596592760) 1.34 cm 0.6-1.1 EF(Teich) (test code = 0190709296) 41.80 % LVIDS (test code = 5081138314) 4.00 cm Left Ventricular End Systolic Volume by Teichholz Method (test code = 7938444) 71.5 mL FS (test code = 9723921548) 21 % EF - 2D (test code = 10720184) 41.80 % LA size (test code = 6886428133) 4.6 cm Pulmonic Regurgitant End Max Velocity (test code = 3473179926) 119.4 cm/s LAV(MOD-sp4) (test code = 3488692385) 95.00 mL E wave decelartion time (test code = 6639359717) 0.15 s MV stenosis pressure 1/2 time (test code = 7506565594) 45.6 ms MV Peak A Evette (test code = 5785521392) 123.8 cm/s MV Peak E Evette (test code = 3758069349) 109.7 cm/s E/A ratio (test code = 5667859736) ratio MR max PG (test code = 0845552807) 87.20 mm[Hg] MR max evette (test code = 9879812061) 466.90 cm/s Mr max evette (test code = 0385108465) 466.9 m/s MV Prop V (test code = 0752723621) 51.00 cm/s MV E/e' septal (test code = 4393185226) 8.1 cm/s Tapse (test code = 6169282021) 2.21 cm LVOT stroke volume (test code = 5641841064) 49.80 cm3 LVOT peak evette (test code = 9611683693) 89.1 cm/s LVOT mn grad (test code = 1697249453) mmHg AV LVOT peak gradient (test code = 6393097523) mmHg LVOT peak VTI (test code = 8943112045) 16.0 cm LV V1 mean (test code = 3617339608) 64.30 cm/s Aortic valve mean velocity (test code = 0359118419) 133.8 cm/s Ao peak evette (test code = 7611853566) 175.3 cm/s Ao VTI (test code = 4191969367) 32.2 cm AV area by cont VTI (test code = 5381965005) 1.6 cm2 AV area peak evette (test code = 0470278586) 1.6 cm2 Ao max PG (test code = 8985508173) 12.30 mm[Hg] AV peak gradient (test code = 9070955660) mmHg AV valve area (test code = 5557580845) 1.55 cm2 AV mean gradient (test code = 8623783444) mmHg AV regurgitation pressure 1/2 time (test code = 9888338564) 358.5 ms AI dec slope (test code = 5850450513) 364.20 cm/s2 AI max evette (test code = 6187369690) 445.80 cm/s AI max PG (test code = 7665697209) 79.50 mm[Hg] Radiology Study observation (narrative) (test code = 13157-8) LYNDSAY (test code = LYNDSAY) ?Left?Ventricle: Left [...] [facility]AUTOMATED)2022-08-01 10:43:32* Test Item Value Reference Range Interpretation Comme [facility] POCT GLU (test code = 7633815603) 148 mg/dL 70-110 H Lab Interpretation (test cod e = 73659-2) Abnormal [facility]anoACTIVATED PARTIAL THRMPLAS [id number] 18:39:45* Test Item Value Reference Range Interpretation Comme [facility] APTT Patient (test code = 3173-2) See_Comment [Automated message] The system which generated this result transmitted reference range: 23 - 38 Seconds. The reference range was not used to interpret this result as normal/abnormal. LYNDSAY (test code = LYNDSAY) The [facility] patient population mean normal value for aPTT is 30 seconds. Lab Interpretation (test code = 01528-9) Normal [facility] PlanoPROTHROMBIN TIME / [id number] 18:37:42* Test Item Value Reference Range Interpretation [...] the indications. Lab Interpretation (test code = 30940-4) Normal [facility] PlanoTROPONIN [id number] 18:32:01* Test Item Value Reference Range Interpretation Comments TROPONIN I (test code = 7192093192) 0.019 ng/mL See_Comment [Automated message] The system [...] of biotin. Lab Interpretation (test code = 17420-4) Normal [facility]anoN-TERMINAL JZI-[id number] 18:29:01* Test Item Value Reference Range Interpretation Comme [facility] NT-proBNP (test code = 8967146460) 2770 pg/mL See_Comment H [Automated message] The system which generated this result transmitted reference range: <=125. The reference range was not used to interpret this result as normal/abnormal. LYNDSAY (test code = LYNDSAY) Biotin has been reported to cause a negative bias, interpret results relative to patient's use of biotin. Lab Interpretation (test code = 71764-6) Abnormal [facility]anoCOMP. METABOLIC PANEL (56163)2022-07-31 18:21:42* Test Item Value Reference Range Interpretation Comme nts NA (test code = 8240327597) 136 mmol/L 135-145 K (test code = 5344965746) 4.6 mmol/L 3.5-5.0 CL (test code = 6775975022) 104 mmol/L 98-108 CO2 TOTAL (test code = 0337756096) 26 mmol/L 23-31 AGAP (test code = 1306172669) 2-16 BUN (test code = 8014017317) 9 mg/dL 7-23 GLUCOSE (test code = 2554354034) 97 mg/dL 70-110 CREATININE (test code = 0431550271) 0.64 mg/dL 0.50-1.04 TOTAL BILI (test code = 4965847928) 0.5 mg/dL 0.1-1.1 CALCIUM (test code = 6382679910) 8.2 mg/dL 8.6-10.6 L T PROTEIN (test code = 0052109438) 6.5 g/dL 6.3-8.2 ALBUMIN (test code = 8097009311) 3.9 g/dL 3.5-5.0 ALK PHOS (test code = 5818285305) 93 U/L 34-122 ALTv (test code = 1742-6) 18 U/L 5-35 AST(SGOT) (test code = 3641192623) 19 U/L 13-40 eGFR (test code = 7095329587) mL/min/1.73m2 LYNDSAY (test code = LYNDSAY) Association [...] imaging tests). Lab Interpretation (test code = 14632-5) [facility] 18:21:01* Test Item Value Reference Range Interpretation Comme nts LIPASE (test code = 5438516356) 54 U/L 0-220 Lab Interpretation (test cod e = 35745-0) Normal [facility] WITH [id number] 18:07:00* Test Item Value Reference Range Interpretation Comme nts WBC (test code = 6690-2) See_Comment [Automated [employer]] The system which generated this result transmitted reference range: 4.30 - 11.10 10*3/?L. The reference range was not used to interpret this result as normal/abnormal. RBC (test code = 789-8) See_Comment [Automated [employer]] The system which generated this result transmitted [...] g/dL 31.6-35.1 L RDW-SD (test code = 23498-9) 53.1 fL 39.0-49.9 H RDW-CV (test code = 788-0) 17.0 % 12.0-15.5 H PLT (test code = 777-3) See_Comment H [Automated messa ge] The system which generated this result transmitted reference range: 166 - 358 10*3/?L. The reference range was not used to interpret this result as normal/abnormal. MPV (test code = 50492-3) 8.2 fL 9.5-12.9 L NRBC/100 WBC (test code = 6669034640) See_Comment [Automated [employer]] The system which generated this result transmitted reference range: 0.0 - 10.0 /100 WBCs. The reference range was not used to interpret this result as normal/abnormal. NRBC x10^3 (test code = 8495795633) See_Comment [Automated messa ge] The system which generated this result transmitted reference range: 10*3/?L. The reference range was not used to interpret this result as normal/abnormal. GRAN MAT (NEUT) % (test code = 770-8) 64.0 % IMM GRAN % (test code = 7917380705) 0.40 % LYMPH % (test code = 736-9) 27.3 % MONO % (test code = 5905-5) 6.5 % EOS % (test code = 713-8) 1.1 % BASO % (test code = 706-2) 0.7 % GRAN MAT x10^3(ANC) (test code = 0230342114) 5.46 10*3/uL 1.88-7.09 IMM GRAN x10^3 (test code = 2741086349) 0.03 10*3/uL 0.00-0.06 LYMPH x10^3 (test code = 731-0) 2.32 10*3/uL 1.32-3.29 MONO x10^3 (test code = 742-7) 0.55 10*3/uL 0.33-0.92 EOS x10^3 (test code = 711-2) 0.09 10*3/uL 0.03-0.39 BASO x10^3 (test code = 704-7) 0.06 10*3/uL 0.01-0.07 Lab Interpretation (test code = 57313-3) Abnormal [facility] METABOLIC PANEL (NA, K, CL, CO2, GLUCOSE, BUN, CREATININE, CA)2022-05-08 06:37:01* Test Item Value Reference Range Interpretation Comme nts NA (test code = 7479978151) 137 mmol/L 135-145 K (test code = 0098814217) 3.8 mmol/L 3.5-5 CL (test code = 4125910802) 103 mmol/L 98-108 CO2 TOTAL (test code = 1623198644) 24 mmol/L 23-31 AGAP (test code = 9347032282) 2-16 BUN (test code = 9178751938) 13 mg/dL 7-23 GLUCOSE (test code = 1471573909) 90 mg/dL 70-110 CREATININE (test code = 0193545792) 0.69 mg/dL 0.5-1.04 CALCIUM (test code = 7174127279) 8.5 mg/dL 8.6-10.6 L eGFR (test code = 5768693444) mL/min/1.73m2 LYNDSAY (test code = LYNDSAY) Association [...] imaging tests). Lab Interpretation (test code = 71464-1) [facility]normal [facility]2022-10-20 06:37:01* Test Item Value Reference Range Interpretation Comme nts MAGNESIUM (test code = 0655383598) 2.1 mg/dL 1.7-2.4 Lab Interpretation (test cod e = 91177-0) Normal [facility]PHOSPHORUS2022-10-20 06:37:01* Test Item Value Reference Range Interpretation Comme nts PHOSPHORUS (test code = 0702417764) 4.7 mg/dL 2.5-5 Lab Interpretation (test cod e = 55113-0) Normal [facility]CBC WITH [id number] 06:11:54* Test Item Value Reference Range Interpretation Comme nts WBC (test code = 6690-2) See_Comment [Automated [employer]] The system which generated this result transmitted reference range: 4.30 - 11.10 10*3/?L. The reference range was not used to interpret this result as normal/abnormal. RBC (test code = 789-8) See_Comment [Automated [employer]] The system which generated this result [...] 32.4 g/dL 31.6-35.1 RDW-SD (test code = 52418-6) 51.0 fL 39-49.9 H RDW-CV (test code = 788-0) 16.5 % 12-15.5 H PLT (test code = 777-3) See_Comment H [Automated messa ge] The system which generated this result transmitted reference range: 166 - 358 10*3/?L. The reference range was not used to interpret this result as normal/abnormal. MPV (test code = 08854-2) 8.3 fL 9.5-12.9 L NRBC/100 WBC (test code = 7877112902) See_Comment [Automated [employer]] The system which generated this result transmitted reference range: 0.0 - 10.0 /100 WBCs. The reference range was not used to interpret this result as normal/abnormal. NRBC x10^3 (test code = 2747152200) See_Comment [Automated messa ge] The system which generated this result transmitted reference range: 10*3/?L. The reference range was not used to interpret this result as normal/abnormal. GRAN MAT (NEUT) % (test code = 770-8) 64.5 % IMM GRAN % (test code = 0503497312) 0.50 % LYMPH % (test code = 736-9) 27.1 % MONO % (test code = 5905-5) 6.6 % EOS % (test code = 713-8) 0.6 % BASO % (test code = 706-2) 0.7 % GRAN MAT x10^3(ANC) (test code = 0095246939) 5.28 10*3/uL 1.88-7.09 IMM GRAN x10^3 (test code = 7863513739) 0.04 10*3/uL 0-0.06 LYMPH x10^3 (test code = 731-0) 2.22 10*3/uL 1.32-3.29 MONO x10^3 (test code = 742-7) 0.54 10*3/uL 0.33-0.92 EOS x10^3 (test code = 711-2) 0.05 10*3/uL 0.03-0.39 BASO x10^3 (test code = 704-7) 0.06 10*3/uL 0.01-0.07 Lab Interpretation (test code = 89560-4) Abnormal [facility]anoPOCT GLUCOSE (AUTOMATED)2022-05-07 01:18:10* Test Item Value Reference Range Interpretation Comme nts POCT GLU (test code = 6876715607) 120 mg/dL 70-110 H Lab Interpretation (test cod e = 51733-8) Abnormal [facility]anoType and Screen - ONCE [id number] 05:46:35* Test Item Value Reference Range Interpretation Comme nts ABO & RH (test code = 20) O POSITIVE Performed at [facility] Laboratory Services [facility] Blood [address] Free: [phone] No. [id number] IAT (test code = 1185) Negative Performed at [facility] Laboratory [facility] Blood [address] Free: [phone] No. [id number] [facility]anoBASIC METABOLIC PANEL (NA, K, CL, CO2, GLUCOSE, BUN, CREATININE, CA)2022-05-05 08:22:57* Test Item Value Reference Range Interpretation Comme nts NA (test code = 4358704905) 136 mmol/L 135-145 K (test code = 1868931597) 4.9 mmol/L 3.5-5 CL (test code = 4369173130) 108 mmol/L 98-108 CO2 TOTAL (test code = 5536019778) 22 mmol/L 23-31 L AGAP (test code = 3854580360) 2-16 BUN (test code = 6437395858) 12 mg/dL 7-23 GLUCOSE (test code = 3236801452) 155 mg/dL 70-110 H CREATININE (test code = 4419926748) 0.63 mg/dL 0.5-1.04 CALCIUM (test code = 1029977759) 8.4 mg/dL 8.6-10.6 L eGFR (test code = 7066849141) mL/min/1.73m2 LYNDSAY (test code = LYNDSAY) Association [...] imaging tests). Lab Interpretation (test code = 80720-1) Abnormal [facility] PlanoPROTHROMBIN TIME / [id number] 08:22:37* Test Item Value Reference Range Interpretation Comme [facility] PROTIME PATIENT (test code = 5964-2) See_Comment [[employer]] The system which generated this result transmitted reference range: 10.1 - 12.6 Seconds. The reference range was not used to interpret this result as normal/abnormal. INR (test code = 6301-6) Normal INR <1.1; Warfarin Therapeutic range 2.0 to 3.0 or 2.5 to 3.5, depending upon the indications. Lab Interpretation (test code = 28244-1) Normal [facility]anoaPTT2022-10-17 08:22:37* Test Item Value Reference Range Interpretation Comme [facility] APTT Patient (test code = 3173-2) See_Comment [[employer]] The system which generated this result transmitted reference range: 26 - 36 Seconds. The reference range was not used to interpret this result as normal/abnormal. Lab Interpretation (test code = 13215-0) Normal [facility]anoFIBRINOGEN2022-10-17 08:22:37* Test Item Value Reference Range Interpretation Comme nts Fibrinogen (test code = 5731870509) 294 mg/dL 167-453 Lab Interpretation (test cod e = 60520-6) Normal [facility] PlanoCB WITH [id number] 08:15:01* Test Item Value Reference Range Interpretation [...] g/dL 31.6-35.1 L RDW-SD (test code = 86753-6) 52.9 fL 39-49.9 H RDW-CV (test code = 788-0) 16.8 % 12-15.5 H PLT (test code = 777-3) See_Comment H [Automated messa ge] The system which generated this result transmitted reference range: 166 - 358 10*3/?L. The reference range was not used to interpret this result as normal/abnormal. MPV (test code = 48396-1) 8.3 fL 9.5-12.9 L NRBC/100 WBC (test code = 5199090051) See_Comment [Automated me ssage] The system which generated this result transmitted reference range: 0.0 - 10.0 /100 WBCs. The reference range was not used to interpret this result as normal/abnormal. NRBC x10^3 (test code = 0736900867) See_Comment [Automated messa ge] The system which generated this result transmitted reference range: 10*3/?L. The reference range was not used to interpret this result as normal/abnormal. GRAN MAT (NEUT) % (test code = 770-8) 86.4 % IMM GRAN % (test code = 0018236150) 0.40 % LYMPH % (test code = 736-9) 11.7 % MONO % (test code = 5905-5) 1.1 % EOS % (test code = 713-8) 0.0 % BASO % (test code = 706-2) 0.4 % GRAN MAT x10^3(ANC) (test code = 6429112808) 6.36 10*3/uL 1.88-7.09 IMM GRAN x10^3 (test code = 2549757693) 0.03 10*3/uL 0-0.06 LYMPH x10^3 (test code = 731-0) 0.86 10*3/uL 1.32-3.29 L MONO x10^3 (test code = 742-7) 0.08 10*3/uL 0.33-0.92 L EOS x10^3 (test code = 711-2) 0.03-0.39 L BASO x10^3 (test code = 704-7) 0.03 10*3/uL 0.01-0.07 Lab Interpretation (test code = 70327-0) Abnormal [facility]anoVITAMIN D, [id number] 20:14:03* Test Item Value Reference Range Interpretation Comme nts VIT D 25OH (test code = 42599-4) 22 ng/mL 25-80 L LYNDSAY (test code = LYNDSAY) Deficiency: <20 ng/mLInsufficiency: 20-24 ng/mLOptimal: 25-80 ng/mL Lab Interpretation (test code = 75091-9) Abnormal [facility]anoBASI METABOLIC PANEL (NA, K, CL, CO2, GLUCOSE, BUN, CREATININE, CA)2022-04-15 11:27:57* Test Item Value Reference Range Interpretation Comme nts NA (test code = 4607355619) 138 mmol/L 135-145 K (test code = 0560380775) 3.9 mmol/L 3.5-5 CL (test code = 1635662032) 106 mmol/L 98-108 CO2 TOTAL (test code = 7096490294) 23 mmol/L 23-31 AGAP (test code = 5763260869) 2-16 BUN (test code = 7620527162) 10 mg/dL 7-23 GLUCOSE (test code = 1183311867) 91 mg/dL 70-110 CREATININE (test code = 4128881090) 0.65 mg/dL 0.5-1.04 CALCIUM (test code = 9657598180) 8.1 mg/dL 8.6-10.6 L eGFR (test code = 1082901610) mL/min/1.73m2 LYNDSAY (test code = LYNDSAY) Association [...] imaging tests). Lab Interpretation (test code = 71722-7) Abnormal [facility]anoSTROKE Protocol - Transthoracic echo (TTE) 2022-04-14 22:07:33* Test Item Value Reference Range Interpretation Comme nts Height (test code = 5290090556) in Weight (test code = 3277086194) lbs Systolic BP (test code = 9648751065) mmHg Diastolic BP (test code = 2829280566) mmHg Heart Rate (test code = 0458406337) bpm BSA (test code = 7918688511) 1.94 m2 TASV (test code = 1520921261) 15.5 cm/s LVIDD (test code = 5166171037) 6.00 cm Left Ventricular End Diastolic Volume by Teichholz Method (test code = 8962593) 183.0 mL IVS (test code = 4901226934) 1.09 cm Interventricular Septum Diastolic Thickness by 2D (test code = 7294750) 1.09 cm LVPWD (test code = 9478483446) 0.94 cm PW (test code = 2083266149) 0.94 cm 0.6-1.1 EF(Teich) (test code = 0341018206) 40.30 % LVIDS (test code = 8728051500) 4.80 cm Left Ventricular End Systolic Volume by Teichholz Method (test code = 9628393) 109.2 mL FS (test code = 2738193367) 20 % EF - 2D (test code = 97895887) 40.30 % LVOT diameter (test code = 2802815220) 2.05 cm LVOT area (test code = 4995840498) 3.30 cm2 Ao root diam (test code = 3839980281) 3.10 cm Aortic root (test code = 8537639952) 3.1 cm Ao root annulus (test code = 5843969844) 3.1 cm LA size (test code = 3661329124) 4.2 cm LAV(MOD-sp4) (test code = 3310596390) 64.90 mL MV Peak A Evette (test code = 3490655838) 115.7 cm/s E wave decelartion time (test code = 1187661382) 0.15 s MV Peak E Evette (test code = 3537122952) 106.2 cm/s E/A ratio (test code = 0556409269) ratio LVOT stroke volume (test code = 1642001021) 48.30 cm3 LVOT peak evette (test code = 9063098370) 78.4 cm/s LVOT mn grad (test code = 1803215385) mmHg AV LVOT peak gradient (test code = 3355047683) mmHg LVOT peak VTI (test code = 0372153816) 14.7 cm LV V1 mean (test code = 1897064603) 51.40 cm/s Ao peak evette (test code = 1662838588) 154.7 cm/s AV area peak evette (test code = 6009819446) 1.7 cm2 Ao max PG (test code = 8108460818) 9.60 mm[Hg] AV peak gradient (test code = 4362875022) mmHg AV regurgitation pressure 1/2 time (test code = 7517037574) 257.3 ms AI dec slope (test code = 2906571633) 498.10 cm/s2 AI max evette (test code = 1771566942) 437.60 cm/s AI max PG (test code = 5780181916) 77.80 mm[Hg] Tapse (test code = 9099449148) 2.19 cm LA Volume Index (BP) (test code = 6404187878) 32.0 mL/m2 LA volume (BP) (test code = 2071703498) 62.1 mL LAV(MOD-sp2) (test code = 6643968145) 52.70 mL A4C EF (test code = 6789804502) 44.80 % EF(sp4-el) (test code = 2944313857) 45.20 % SV(MOD-sp4) (test code = 0342985952) 71.20 mL SV(sp4-el) (test code = 8087368872) 73.90 mL LV Diastolic Volume (BP) (test code = 6479410551) 146.3 mL A2C EF (test code = 6005152305) 52.00 % EF(MOD-bp) (test code = 5231663406) 46.70 % EF(sp2-el) (test code = 0514439690) 52.40 % LV Systolic Volume (BP) (test code = 8935104478) 77.9 mL SV(MOD-bp) (test code = 9355616559) 68.40 mL SV(MOD-sp2) (test code = 7026241130) 69.20 mL EF (test code = 7515718748) Left Ventricular Stroke Volume by 2-D Biplane-MOD (test code = 6288226) 68.4 mL Radiology Study observation (narrative) (test code = 82938-9) LYNDSAY (test code = LYNDSAY) ?Left?Ventricle: Left [...] [facility]anoLEAH (LEVETIRACETAM)2022-04-14 16:48:36* Test Item Value Reference Range Interpretation Comme nts KEPPRA (test code = 2369115119) 12-46 L LYNDSAY (test code = LYNDSAY) Therapeutic range: 12-46 ?g/mL ? ?Toxic: Not well established.Test developed and characteristics determined by [facility] Laboratory Services. Lab Interpretation (test code = 49553-8) Abnormal [facility]Bab[facility] Met[facility] (Na, K, Cl, CO2, Glucose, BUN, Creatinine, Ca)2022-04-14 10:50:11* Test Item Value Reference Range Interpretation Comme [facility] NA (test code = 8667920774) 136 mmol/L 135-145 K (test code = 3665478960) 3.8 mmol/L 3.5-5 CL (test code = 6774137296) 105 mmol/L 98-108 CO2 TOTAL (test code = 7679028461) 25 mmol/L 23-31 AGAP (test code = 6145889403) 2-16 BUN (test code = 4453031863) 9 mg/dL 7-23 GLUCOSE (test code = 8751487871) 101 mg/dL 70-110 CREATININE (test code = 5634688351) 0.66 mg/dL 0.5-1.04 CALCIUM (test code = 6866472966) 8.1 mg/dL 8.6-10.6 L eGFR (test code = 1926435660) mL/min/1.73m2 LYNDSAY (test code = LYNDSAY) Association [...] imaging tests). Lab Interpretation (test code = 68759-7) Abnormal [facility] PlanoMagensium, [id number] 10:50:11* Test Item Value Reference Range Interpretation Comme nts MAGNESIUM (test code = 0277124295) 1.9 mg/dL 1.7-2.4 Lab Interpretation (test cod e = 21090-5) Normal [facility] PlanoThyroid Stimulating Lsugxex1295-20-51 22:21:44 * Test Item Value Reference Range Interpretation Comme nts TSH (test code = 7199313645) See_Comment Biotin has been reported to cause a negative bias, interpret results relative to patient's use of biotin. [Automated message] The system which generated this result transmitted reference range: 0.45 - 4.70 mIU/L. The reference range was not used to interpret this result as normal/abnormal. Lab Interpretation (test code = 01601-4) Normal [facility] PlanoGLYCOSYLATED HEMOGLOBIN (A1C)2022-04-13 21:53:43* Test Item Value Reference Range Interpretation Comme nts HGB A1C (test code = 4548-4) 5.8 % 4-5.7 H LYNDSAY (test code = LYNDSAY) Reference RangesNormal: <5.7%Prediabetes: 5.7 - 6.4%Diabetes: > 6.5% Lab Interpretation (test code = 07120-4) Abnormal [facility] PlanoFASTING LIPID PANEL (48053)(TOTAL CHOLESTEROL, TRIGLYCERIDES, HDL)2022-04-13 21:34:53* Test Item Value Reference Range Interpretation Comme nts CHOL (test code = 6123681743) 201 mg/dL 120-200 H HDL (test code = 5434210332) 56 mg/dL See_Comment [Automated [employer]] The system which generated this result transmitted reference range: >=50. The reference range was not used to interpret this result as normal/abnormal. HDLC RATIO (test code = 0696067634) See_Comment [Automated [employer]] The system which generated this result transmitted reference range: <=4.5. The reference range was not used to interpret this result as normal/abnormal. TRIG (test code = 5299562823) 355 mg/dL 30-170 H LDL CHOL (test code = 90754-3) 74 mg/dL See_Comment [Automated [employer]] The system which generated this result transmitted reference range: <=160. The reference range was not used to interpret this result as normal/abnormal. VLDL (test code = 0499465343) 71 mg/dL 5-60 H Lab Interpretation (test code = 92536-0) Abnormal [facility] PlanoTroponin I - Code Azphqs2560-02-12 18:46:27* Test Item Value Reference Range Interpretation Comments TROPONIN I (test code = 9591437009) 0.013 ng/mL See_Comment [Automated message] The system [...] of biotin. Lab Interpretation (test code = 62687-7) Normal [facility] Metabolic Panel (NA, K, CL, CO2, Glucose, BUN, Creatinine, CA) - Code [id number] 18:35:07* Test Item Value Reference Range Interpretation Comme nts NA (test code = 8154591803) 136 mmol/L 135-145 K (test code = 9793530402) 4.3 mmol/L 3.5-5 CL (test code = 8626017359) 105 mmol/L 98-108 CO2 TOTAL (test code = 9183739389) 27 mmol/L 23-31 AGAP (test code = 6282646827) 2-16 BUN (test code = 9152426336) 8 mg/dL 7-23 GLUCOSE (test code = 4503764410) 130 mg/dL 70-110 H CREATININE (test code = 4282813881) 0.75 mg/dL 0.5-1.04 CALCIUM (test code = 9020751580) 8.5 mg/dL 8.6-10.6 L eGFR (test code = 4241681035) mL/min/1.73m2 LYNDSAY (test code = LYNDSAY) Association [...] imaging tests). Lab Interpretation (test code = 23050-2) [facility]normal [facility]anoaPTT - Code Qioprd4845-32-95 18:32:46* Test Item Value Reference Range Interpretation [...] 30 seconds. Lab Interpretation (test code = 16014-6) Normal [facility] PlanoProthrombin Time / INR - Code Ffjgfk9671-47-75 18:30:45* Test Item Value Reference Range Interpretation Comme [facility] PROTIME PATIENT (test [...] the indications. Lab Interpretation (test code = 91753-0) Normal [facility] PlanoCBC without Diff - Code Reidrq8550-39-36 18:23:07* Test Item Value Reference Range Interpretation Comme [facility] WBC (test code [...] result as normal/abnormal. MPV (test code = 95782-3) 8.1 fL 9.5-12.9 L RDW-CV (test code = 788-0) 16.1 % 12-15.5 H RDW-SD (test code = 60472-5) 49.2 fL 39-49.9 NRBC x10^3 (test code = 1432492117) See_Comment [Automated [employer]] The system which generated this result transmitted reference range: 10*3/?L. The reference range was not used to interpret this result as normal/abnormal. NRBC/100 WBC (test code = 1990503250) See_Comment [Automated [employer]] The system which generated this result transmitted reference range: 0.0 - 10.0 /100 WBCs. The reference range was not used to interpret this result as normal/abnormal. IPF % (test code = 0158354156) Lab Interpretation (test code = 74719-1) [id number] 21:06:40* Test Item Value Reference Range Interpretation Comments TROPONIN I (test code = 6142234612) 0.005 ng/mL See_Comment [Automated message] The system [...] of biotin. Lab Interpretation (test code = 72647-1) Normal [facility]. METABOLIC PANEL (80781)2021-11-23 20:55:42* Test Item Value Reference Range Interpretation Comme nts NA (test code = 6152006378) 137 mmol/L 135-145 K (test code = 7777159767) 4.3 mmol/L 3.5-5.0 CL (test code = 3692250497) 104 mmol/L 98-108 CO2 TOTAL (test code = 3726287536) 22 mmol/L 23-31 L AGAP (test code = 8821559690) 2-16 BUN (test code = 2246253024) 15 mg/dL 7-23 GLUCOSE (test code = 1642782089) 114 mg/dL 70-110 H CREATININE (test code = 7974340283) 0.68 mg/dL 0.50-1.04 TOTAL BILI (test code = 7569697292) 0.5 mg/dL 0.1-1.1 CALCIUM (test code = 0083199199) 9.1 mg/dL 8.6-10.6 T PROTEIN (test code = 8045731784) 7.3 g/dL 6.3-8.2 ALBUMIN (test code = 5951227448) 4.4 g/dL 3.5-5.0 ALK PHOS (test code = 4223151644) 243 U/L 34-122 H ALTv (test code = 1742-6) 24 U/L 5-35 AST(SGOT) (test code = 4692968402) 30 U/L 13-40 eGFR (test code = 1330522869) mL/min/1.73m2 LYNDSAY (test code = LYNDSAY) Association [...] imaging tests). Lab Interpretation (test code = 53468-9) [facility]normal [facility]anoLIPASE2022-05-07 20:55:22* Test Item Value Reference Range Interpretation Comme nts LIPASE (test code = 7638619199) 96 U/L 0-220 Lab Interpretation (test cod e = 27782-3) Normal [facility] PlanoPOCT [id number] 20:46:00* Test Item Value Reference Range Interpretation Comme nts POCT PREG (test code = 1605) negative On board controls acceptable with C Line (test code = 3574) present POCT PREG LOT # (test code = 3575) [id number] POCT PREG TEST DATE ( test code = 3576) 04/18/2023 Lab Interpretation (test cod e = 92907-7) Normal [facility] PlanoCBC WITH [id number] 20:40:38* Test Item Value Reference Range Interpretation Comme nts WBC (test code = 6690-2) See_Comment [Automated [employer]] The system which generated this result transmitted reference range: 4.30 - 11.10 10*3/?L. The reference range was not used to interpret this result as normal/abnormal. RBC (test code = 789-8) See_Comment [Automated [employer]] The system which generated this result [...] 31.8 g/dL 31.6-35.1 RDW-SD (test code = 07824-0) 53.7 fL 39.0-49.9 H RDW-CV (test code = 788-0) 17.2 % 12.0-15.5 H PLT (test code = 777-3) See_Comment H [Automated messa ge] The system which generated this result transmitted reference range: 166 - 358 10*3/?L. The reference range was not used to interpret this result as normal/abnormal. MPV (test code = 04556-9) 8.5 fL 9.5-12.9 L NRBC/100 WBC (test code = 0791977108) See_Comment [Automated [employer]] The system which generated this result transmitted reference range: 0.0 - 10.0 /100 WBCs. The reference range was not used to interpret this result as normal/abnormal. NRBC x10^3 (test code = 2197967837) <0.01 See_Comment [Automated messa ge] The system which generated this result transmitted reference range: 10*3/?L. The reference range was not used to interpret this result as normal/abnormal. GRAN MAT (NEUT) % (test code = 770-8) 53.7 % IMM GRAN % (test code = 6508939936) 0.90 % LYMPH % (test code = 736-9) 32.6 % MONO % (test code = 5905-5) 10.1 % EOS % (test code = 713-8) 1.5 % BASO % (test code = 706-2) 1.2 % GRAN MAT x10^3(ANC) (test code = [id number]) 4.98 10*3/uL 1.88-7.09 IMM GRAN x10^3 (test code = [id number]) 0.08 10*3/uL 0.00-0.06 H LYMPH x10^3 (test code = 731-0) 3.02 10*3/uL 1.32-3.29 MONO x10^3 (test code = 742-7) 0.94 10*3/uL 0.33-0.92 H EOS x10^3 (test code = 711-2) 0.14 10*3/uL 0.03-0.39 BASO x10^3 (test code = 704-7) 0.11 10*3/uL 0.01-0.07 H Lab Interpretation (test code = 82581-2) [facility]2021-11-23 20:17:33* Test Item Value Reference Range Interpretation Comme nts POCT GLU (test code = 5404017470) 111 mg/dL 70-110 H Notified Provide r Lab Interpretation (test code = 43965-4) [facility], THINPREP, [id number] 00:00:00 * Test Item Value Reference Range Interpretation Comme nts SOURCE: (test code = 8001) Endocervical SLIDES: (test code = 8011) 1 LMP: (test code = 8021) 06/03/2021 SPECIMEN ADEQUACY: (test code = 36605) (NOTE) INTERPRETATION: (test code = 59434) ASCUS/EPITH. ABNORMALITY; SEE BELOW SUPERINTENDENT OPERATIONS DIVISION: (test code = 8101) CHANA Thacker(ASC)[facility] PATHOLOGIST INTERPRETATION BY: (test code = 8122) Nahid Russell M.D. LOCATION: (test code = 73739) (NOTE) CPT: (test code = 8140) (NOTE) PAP TEST, THINPREP, [id number] 00:00:00* Test Item Value Reference Range Interpretation Comme nts SOURCE: (test code = 8001) Endocervical SLIDES: (test code = 8011) 1 LMP: (test code = 8021) 06/03/2021 SPECIMEN ADEQUACY: (test code = 97641) (NOTE) INTERPRETATION: (test code = 03396) ASCUS/EPITH. ABNORMALITY; SEE BELOW SUPERINTENDENT OPERATIONS DIVISION: (test code = 8101) CHANA Thacker(ASC)[facility] PATHOLOGIST INTERPRETATION BY: (test code = 8122) Nahid Russell M.D. LOCATION: (test code = 17918) (NOTE) CPT: (test code = 8140) (NOTE) HPV HIGH RISK WITH GENOTYPE, [id number] 00:00:00* Test Item Value Reference Range Interpretation Comme nts HPV HIGH RISK INTERP (test c ode = 00022) POSITIVE HPV 16 (test code = 06007) POSITIVE HPV 18 (test code = 16302) NEGATIVE HPV, HR, OTHER GENOTYPES (te st code = 92374) POSITIVE HPV HIGH RISK WITH GENOTYPE, [id number] 00:00:00* Test Item Value Reference Range Interpretation Comme nts HPV HIGH RISK INTERP (test c ode = 34629) POSITIVE HPV 16 (test code = 61895) POSITIVE HPV 18 (test code = 50428) NEGATIVE HPV, HR, OTHER GENOTYPES (te st code = 45985) POSITIVE [id number] 03:22:48* Test Item Value Reference Range Interpretation Comme nts APPEARANCE (test code = 0593488563) Hazy Clear A COLOR (test code = 2349936586) Yellow Yellow PH (test code = 9290061560) 4.8-8.0 SP GRAVITY (test code = 1754799761) 1.003-1.030 GLU U QUAL (test code = 4561700570) Normal Normal BLOOD (test code = 2188921356) Negative Negative Interference fro m ascorbic acid may cause false negative results. KETONES (test code = 9550162620) 5 mg/dL Negative A PROTEIN (test code = 2887-8) Negative Negative UROBILIN (test code = 2514578914) 4.0 mg/dL Normal A BILIRUBIN (test code = 0372283814) Negative Negative NITRITE (test code = 4721425713) Negative Negative LEUK GRUPO (test code = 0322302664) Negative Negative RBC/HPF (test code = 0304356942) See_Comment [Automated [employer]] The system which generated this result transmitted reference range: 0 - 3 HPF. The reference range was not used to interpret this result as normal/abnormal. WBC/HPF (test code = 9784592821) <1 See_Comment [Automated [employer]] The system which generated this result transmitted reference range: 0 - 5 HPF. The reference range was not used to interpret this result as normal/abnormal. BACTERIA (test code = 0244535600) Few Negative A SQ EPITH (test code = 7419681728) HPF Lab Interpretation (test code = 63606-1) [facility] 03:22:48* Test Item Value Reference Range Interpretation Comme nts APPEARANCE (test code = 3022700835) Hazy Clear A COLOR (test code = 4609991825) Yellow Yellow PH (test code = 5733174345) 4.8-8.0 SP GRAVITY (test code = 9176013892) 1.003-1.030 GLU U QUAL (test code = 3811470223) Normal Normal BLOOD (test code = 9616462780) Negative Negative KETONES (test code = 2002799598) 5 mg/dL Negative A PROTEIN (test code = 2887-8) Negative Negative UROBILIN (test code = 9550798750) 4.0 mg/dL Normal A BILIRUBIN (test code = 8327669280) Negative Negative NITRITE (test code = 8580711518) Negative Negative LEUK GRUPO (test code = 9169235659) Negative Negative RBC/HPF (test code = 0842161486) See_Comment [Automated [employer]] The system which generated this result transmitted reference range: 0 - 3 HPF. The reference range was not used to interpret this result as normal/abnormal. WBC/HPF (test code = 5174481197) <1 See_Comment [[employer]] The system which generated this result transmitted reference range: 0 - 5 HPF. The reference range was not used to interpret this result as normal/abnormal. BACTERIA (test code = 3122493898) Few Negative A SQ EPITH (test code = 4281604263) HPF Lab Interpretation (test code = 75208-6) [facility]normal [facility] [id number] 02:45:00* Test Item Value Reference Range Interpretation Comments TROPONIN I (test code = 0880914536) 0.002 ng/mL See_Comment [Automated message] The system [...] of biotin. Lab Interpretation (test code = 51647-2) Normal [facility] [id number] 02:45:00* Test Item Value Reference Range Interpretation Comme nts TROPONIN I (test code = 9079475188) 0.002 ng/mL See_Comment [Automated [employer]] The system which generated this result transmitted reference range: <=0.034. The reference range was not used to interpret this result as normal/abnormal. LYDNSAY (test code = LYNDSAY) Lab Interpretation (test code = 67622-3) Normal [facility] [id number] 02:41:57* Test Item Value Reference Range Interpretation Comme nts NT-proBNP (test code = 4142170337) 169 pg/mL See_Comment H [Automated message] The system which generated this result transmitted reference range: <=125. The reference range was not used to interpret this result as normal/abnormal. LYNDSAY (test code = LYNDSAY) Biotin has been reported to cause a negative bias, interpret results relative to patient's use of biotin. Lab Interpretation (test code = 12299-7) Abnormal [facility] [id number] 02:41:57* Test Item Value Reference Range Interpretation Comme nts NT-proBNP (test code = 6319157487) 169 pg/mL See_Comment H [Automated [employer]] The system which generated this result transmitted reference range: <=125. The reference range was not used to interpret this result as normal/abnormal. LYNDSAY (test code = LYNDSAY) Lab Interpretation (test code = 51590-3) Abnormal [facility]. METABOLIC PANEL (50219)2021-03-17 02:09:13* Test Item Value Reference Range Interpretation Comme nts NA (test code = 9150233349) 137 mmol/L 135-145 K (test code = 6592766055) 4.2 mmol/L 3.5-5.0 CL (test code = 6823974278) 102 mmol/L 98-108 CO2 TOTAL (test code = 3183076761) 25 mmol/L 23-31 AGAP (test code = 0342738726) 2-16 BUN (test code = 4223568091) 18 mg/dL 7-23 GLUCOSE (test code = 4270397172) 144 mg/dL 70-110 H CREATININE (test code = 5545080840) 0.77 mg/dL 0.50-1.04 TOTAL BILI (test code = 4373869084) 0.4 mg/dL 0.1-1.1 CALCIUM (test code = 8834975390) 8.9 mg/dL 8.6-10.6 T PROTEIN (test code = 2718399740) 6.8 g/dL 6.3-8.2 ALBUMIN (test code = 9217412237) 3.9 g/dL 3.5-5.0 ALK PHOS (test code = 7676182562) 84 U/L 34-122 ALTv (test code = 1742-6) 13 U/L 5-35 AST(SGOT) (test code = 7588515046) 17 U/L 13-40 eGFR (test code = 7696957787) mL/min/1.73m2 LYNDSAY (test code = LYNDSAY) Association [...] imaging tests). Lab Interpretation (test code = 52902-6) Abnormal [facility]. METABOLIC PANEL (25154)2021-03-17 02:09:13* Test Item Value Reference Range Interpretation Comme nts NA (test code = 4802673760) 137 mmol/L 135-145 K (test code = 3497334243) 4.2 mmol/L 3.5-5.0 CL (test code = 5884291768) 102 mmol/L 98-108 CO2 TOTAL (test code = 4907719644) 25 mmol/L 23-31 AGAP (test code = 6508725261) 2-16 BUN (test code = 0953752179) 18 mg/dL 7-23 GLUCOSE (test code = 8970062926) 144 mg/dL 70-110 H CREATININE (test code = 9823398740) 0.77 mg/dL 0.50-1.04 TOTAL BILI (test code = 8483949360) 0.4 mg/dL 0.1-1.1 CALCIUM (test code = 1721688617) 8.9 mg/dL 8.6-10.6 T PROTEIN (test code = 8817165309) 6.8 g/dL 6.3-8.2 ALBUMIN (test code = 5720636790) 3.9 g/dL 3.5-5.0 ALK PHOS (test code = 1929348319) 84 U/L 34-122 ALTv (test code = 1742-6) 13 U/L 5-35 AST(SGOT) (test code = 9141834028) 17 U/L 13-40 eGFR (test code = 8875091332) mL/min/1.73m2 LYNDSAY (test code = LYNDSAY) Lab Interpretation (test cod e = 96749-3) Abnormal [facility] WITH [id number] 01:56:33* Test Item Value Reference Range Interpretation [...] g/dL 31.6-35.1 L RDW-SD (test code = 64184-4) 55.5 fL 39.0-49.9 H RDW-CV (test code = 788-0) 18.9 % 12.0-15.5 H PLT (test code = 777-3) See_Comment H [Automated messa ge] The system which generated this result transmitted reference range: 166 - 358 10*3/?L. The reference range was not used to interpret this result as normal/abnormal. MPV (test code = 68048-7) 8.2 fL 9.5-12.9 L NRBC/100 WBC (test code = 4705622407) See_Comment [Automated [employer]] The system which generated this result transmitted reference range: 0.0 - 10.0 /100 WBCs. The reference range was not used to interpret this result as normal/abnormal. NRBC x10^3 (test code = 7795316328) <0.01 See_Comment [Automated messa ge] The system which generated this result transmitted reference range: 10*3/?L. The reference range was not used to interpret this result as normal/abnormal. GRAN MAT (NEUT) % (test code = 770-8) 61.7 % IMM GRAN % (test code = 2431808561) 0.80 % LYMPH % (test code = 736-9) 28.5 % MONO % (test code = 5905-5) 6.3 % EOS % (test code = 713-8) 1.8 % BASO % (test code = 706-2) 0.9 % GRAN MAT x10^3(ANC) (test code = 3967276626) 7.31 10*3/uL 1.88-7.09 H IMM GRAN x10^3 (test code = 4416233247) 0.09 10*3/uL 0.00-0.06 H LYMPH x10^3 (test code = 731-0) 3.38 10*3/uL 1.32-3.29 H MONO x10^3 (test code = 742-7) 0.75 10*3/uL 0.33-0.92 EOS x10^3 (test code = 711-2) 0.21 10*3/uL 0.03-0.39 BASO x10^3 (test code = 704-7) 0.11 10*3/uL 0.01-0.07 H Lab Interpretation (test code = 05135-9) Abnormal [facility] WITH [id number] 01:56:33* Test Item Value Reference Range Interpretation [...] g/dL 31.6-35.1 L RDW-SD (test code = 43921-0) 55.5 fL 39.0-49.9 H RDW-CV (test code = 788-0) 18.9 % 12.0-15.5 H PLT (test code = 777-3) See_Comment H [Automated messa ge] The system which generated this result transmitted reference range: 166 - 358 10*3/?L. The reference range was not used to interpret this result as normal/abnormal. MPV (test code = 61088-6) 8.2 fL 9.5-12.9 L NRBC/100 WBC (test code = 2510736864) See_Comment [Automated [employer]] The system which generated this result transmitted reference range: 0.0 - 10.0 /100 WBCs. The reference range was not used to interpret this result as normal/abnormal. NRBC x10^3 (test code = 2394080387) <0.01 See_Comment [Automated [employer]] The system which generated this result transmitted reference range: 10*3/?L. The reference range was not used to interpret this result as normal/abnormal. GRAN MAT (NEUT) % (test code = 770-8) 61.7 % IMM GRAN % (test code = 0039819462) 0.80 % LYMPH % (test code = 736-9) 28.5 % MONO % (test code = 5905-5) 6.3 % EOS % (test code = 713-8) 1.8 % BASO % (test code = 706-2) 0.9 % GRAN MAT x10^3(ANC) (test code = 4489813316) 7.31 10*3/uL 1.88-7.09 H IMM GRAN x10^3 (test code = 0650424548) 0.09 10*3/uL 0.00-0.06 H LYMPH x10^3 (test code = 731-0) 3.38 10*3/uL 1.32-3.29 H MONO x10^3 (test code = 742-7) 0.75 10*3/uL 0.33-0.92 EOS x10^3 (test code = 711-2) 0.21 10*3/uL 0.03-0.39 BASO x10^3 (test code = 704-7) 0.11 10*3/uL 0.01-0.07 H Lab Interpretation (test code = 94348-8) Abnormal [facility]-19 (ID NOW RAPID TESTING)2021-03-17 01:38:12* Test Item Value Reference Range Interpretation Comme nts SARS-CoV-2 Rapid ID NOW (test code = 75450-1) Not Detected Not Detected LYNDSAY (test code = LYNDSAY) ID NOW COVID-19 As say is an isothermal nucleic acid amplification test intended for the qualitative detection of nucleic acid from SARS-CoV-2 viral RNA in nasopharyngeal ([employer]) specimens. It is used under Emergency Use [...] clinically indicated. Lab Interpretation (test code = 55102-4) Normal [place] [address] (ID NOW RAPID TESTING)2021-03-17 01:38:12* Test Item Value Reference Range Interpretation Comme nts SARS-CoV-2 Rapid ID NOW (raisa t code = 49010-2) Not Detected Not Detected LYNDSAY (test code = LYNDSAY) Lab Interpretation (test cod e = 05635-3) Normal [place] [address] (ID NOW RAPID TESTING)2021-02-19 17:42:45* Test Item Value Reference Range Interpretation Comme nts SARS-CoV-2 Rapid ID NOW (test code = 10601-4) Not Detected Not Detected LYNDSAY (test code = LYNDSAY) ID NOW COVID-19 As say is an isothermal nucleic acid amplification test intended for the qualitative detection of nucleic acid from SARS-CoV-2 viral RNA in nasopharyngeal ([employer]) specimens. It is used under Emergency Use [...] clinically indicated. Lab Interpretation (test code = 55795-4) Normal [facility] ABDOMEN PELVIS W [id number] 17:24:55Thickening of the gastric antrum and duodenal [...] Electronicallysigned by James Freeman at 02/19/2021 12:24 PMUnThe [facility] CampusUrinalysis2021-08-03 17:03:40* Test Item Value Reference Range Interpretation Comme nts APPEARANCE (test code = 1442435534) Hazy Clear A COLOR (test code = 6485270606) Mabel Yellow A PH (test code = 3044528874) 4.8-8.0 SP GRAVITY (test code = 0481189740) 1.003-1.030 H GLU U QUAL (test code = 8279710905) Normal Normal BLOOD (test code = 8369608106) Negative Negative KETONES (test code = 8251798157) 5 mg/dL Negative A PROTEIN (test code = 2887-8) 30 mg/dL Negative A UROBILIN (test code = 5263483425) 4.0 mg/dL Normal A BILIRUBIN (test code = 7506713173) 4 mg/dL Negative A NITRITE (test code = 7386736100) Negative Negative LEUK GRUPO (test code = 6658873150) Negative Negative RBC/HPF (test code = 6314916651) See_Comment H [Automated messa ge] The system which generated this result transmitted reference range: 0 - 3 HPF. The reference range was not used to interpret this result as normal/abnormal. WBC/HPF (test code = 0086285768) See_Comment H [Automated messa ge] The system which generated this result transmitted reference range: 0 - 5 HPF. The reference range was not used to interpret this result as normal/abnormal. BACTERIA (test code = 7854500712) Few Negative A MUCOUS (test code = 2213546302) Moderate Negative LPF A SQ EPITH (test code = 9047911726) HPF CA OXALATE (test code = 9085676545) See_Comment H [Automated messa ge] The system which generated this result transmitted reference range: <=1 HPF. The reference range was not used to interpret this result as normal/abnormal. Ictotest (test code = 6138417386) Negative Lab Interpretation (test code = 84041-8) [facility]normal [facility] Metabolic [id number] 16:34:55* Test Item Value Reference Range Interpretation Comme nts NA (test code = 2688591052) 139 mmol/L 135-145 K (test code = 9654120348) 4.3 mmol/L 3.5-5.0 CL (test code = 5208033524) 105 mmol/L 98-108 CO2 TOTAL (test code = 0553463927) 26 mmol/L 23-31 AGAP (test code = 3598512171) 2-16 BUN (test code = 0779437196) 11 mg/dL 7-23 GLUCOSE (test code = 0041477856) 95 mg/dL 70-110 CREATININE (test code = 3179233997) 0.70 mg/dL 0.50-1.04 TOTAL BILI (test code = 4368794080) 0.6 mg/dL 0.1-1.1 CALCIUM (test code = 4760893116) 8.9 mg/dL 8.6-10.6 T PROTEIN (test code = 1039301391) 7.7 g/dL 6.3-8.2 ALBUMIN (test code = 7817827722) 4.1 g/dL 3.5-5.0 ALK PHOS (test code = 4842050337) 79 U/L 34-122 ALTv (test code = 1742-6) 10 U/L 5-35 AST(SGOT) (test code = 8433677455) 22 U/L 13-40 eGFR (test code = 8296740782) mL/min/1.73m2 LYNDSAY (test code = LYNDSAY) Association [...] [facility]anoLip[facility], [id number] 16:34:14* Test Item Value Reference Range Interpretation Comme nts LIPASE (test code = 7736311622) 45 U/L 0-220 Lab Interpretation (test cod e = 60898-3) Normal [facility] with [id number] 16:21:12* Test Item Value Reference Range Interpretation Comme nts WBC (test code = 6690-2) See_Comment [Automated [employer]] The system which generated this result transmitted reference range: 4.30 - 11.10 10*3/?L. The reference range was not used to interpret this result as normal/abnormal. RBC (test code = 789-8) See_Comment [Automated [employer]] The system which generated this result [...] g/dL 31.6-35.1 L RDW-SD (test code = 76313-9) 54.4 fL 39.0-49.9 H RDW-CV (test code = 788-0) 18.3 % 12.0-15.5 H PLT (test code = 777-3) See_Comment H [Automated messa ge] The system which generated this result transmitted reference range: 166 - 358 10*3/?L. The reference range was not used to interpret this result as normal/abnormal. MPV (test code = 25496-0) 8.5 fL 9.5-12.9 L NRBC/100 WBC (test code = 0924648815) See_Comment [Automated [employer]] The system which generated this result transmitted reference range: 0.0 - 10.0 /100 WBCs. The reference range was not used to interpret this result as normal/abnormal. NRBC x10^3 (test code = 0015860314) <0.01 See_Comment [Automated messa ge] The system which generated this result transmitted reference range: 10*3/?L. The reference range was not used to interpret this result as normal/abnormal. GRAN MAT (NEUT) % (test code = 770-8) 78.3 % IMM GRAN % (test code = 1444521587) 0.40 % LYMPH % (test code = 736-9) 15.4 % MONO % (test code = 5905-5) 4.8 % EOS % (test code = 713-8) 0.1 % BASO % (test code = 706-2) 1.0 % GRAN MAT x10^3(ANC) (test code = 5833336207) 7.15 10*3/uL 1.88-7.09 H IMM GRAN x10^3 (test code = 5577330038) 0.04 10*3/uL 0.00-0.06 LYMPH x10^3 (test code = 731-0) 1.41 10*3/uL 1.32-3.29 MONO x10^3 (test code = 742-7) 0.44 10*3/uL 0.33-0.92 EOS x10^3 (test code = 711-2) <0.03 0.03-0.39 L BASO x10^3 (test code = 704-7) 0.09 10*3/uL 0.01-0.07 H Lab Interpretation (test code = 98245-2) Abnormal [facility] Consult Notes Date/Time Note Provider Source 2024-01-10 12:39:30 Associated Order(s): CONSULT CARDIOLOGY [facility] Cardiology Consult PCP: PATIENT DOES NOT HAVE A PCP Date of Service: 01/10/2024 CHIEF COMPLAINT/reason for consult: Chest pain HISTORY OF PRESENT ILLNESS This is a 53 years old female with past medical history of smoking, COPD, hypertension, obesity, nonobstructive coronary artery disease, systolic and diastolic heart failure, left ventricular thrombosis and pulm hypertension. She presented to [facility] emergency room with chest pain. She [...] (chronic obstructive pulmonary disease) Diverticulitis Epilepsy Hypertension [place] (myocardial infarction) 07/20/2007 Slipped disc Stomach cancer Substance abuse Marijuana daily-for anxiety Past Surgical History: Procedure Laterality Date ANTERIOR CERVICAL FUSION CHOLECYSTECTOMY HAND/FINGER SURGERY UNLISTED Bilateral 3 L hand, 3 R hand METATARSAL OSTEOTOMY Right 08/14/2015 Surgeon: Luis Jones Jr., DPM; Location: [facility] OR [facility] TONSILLECTOMY Family History Problem Relation Age of [...] pulmonary disease) Obesity Coronary artery disease involving [place] coronary artery of [place] heart without angina pectoris Snores Cigarette smoker [...] further assistance. Kylee Montez MD, FACC, AMADOR Visual Aid Expert Division of Cardiovascular Medicine [facility] T [facility] [employer] 2023-12-15 08:28:19 Associated Order(s): CONSULT CARDIOLOGY [facility] Cardiology Consult PCP: PATIENT DOES NOT HAVE A PCP Date of Service: 12/15/2023 CHIEF COMPLAINT/reason for consult: Heart failure HISTORY OF PRESENT ILLNESS This is a 53 years old female with past medical history of smoking, COPD, hypertension, obesity, nonobstructive coronary artery disease, systolic and diastolic heart failure, left ventricular thrombosis and pulm hypertension. She presented to [facility] emergency room with dyspnea, chest pain [...] (chronic obstructive pulmonary disease) Diverticulitis Epilepsy Hypertension WI (myocardial infarction) 07/20/2007 Slipped disc Stomach cancer Substance abuse Marijuana daily-for anxiety Past Surgical History: Procedure Laterality Date ANTERIOR CERVICAL FUSION CHOLECYSTECTOMY HAND/FINGER SURGERY UNLISTED Bilateral 3 L hand, 3 R hand METATARSAL OSTEOTOMY Right 08/14/2015 Surgeon: Luis Jones Jr., ESTHER; Location: [facility] OR [facility] TONSILLECTOMY Family History Problem Relation Age of [...] pain, unspecified type Coronary artery disease involving [place] coronary artery of [place] heart without angina pectoris Snores Cigarette smoker [...] be of further assistance. Kylee Montez MD, FAC, AMADOR Visual Aid Expert Division of Cardiovascular Medicine [facility] [employer] 2023-11-27 14:57:00 Associated Order(s): CONSULT ADULT PHYSICAL THERAPY 11/27/2023 Physical therapy note: Duplicate consult. Sami Teran PT, DPT,CMSR Sami Teran PT [facility] 2023-11-25 10:16:00 Associated Order(s): CONSULT ADULT PHYSICAL [...] (chronic obstructive pulmonary disease) Diverticulitis Epilepsy Hypertension WI (myocardial infarction) 07/20/2007 Slipped disc Stomach cancer Substance abuse Marijuana daily-for anxiety PSH: Past Surgical History: Procedure Laterality Date ANTERIOR CERVICAL FUSION CHOLECYSTECTOMY HAND/FINGER SURGERY UNLISTED Bilateral 3 L hand, 3 R hand METATARSAL OSTEOTOMY Right 08/14/2015 Surgeon: Luis Jones Jr., ESTHER; Location: [facility] OR [facility] TONSILLECTOMY Prior Living Situation: lives with her [...] -Pain Management: Nursing Notified COMMUNICATION Primary Language: Brazilian Able to Verbalize needs: Yes Vision:good; no [...] Time in Minutes: 30 min Sami Loza. GAURI Teran, DPT,CMSR [facility] - Health History and Physical Notes Date/Time Note Provider Source 2024-01-09 22:04:15 [facility] Hospitalist Admission H&P Date of Service: 01/09/2024 CHIEF COMPLAINT: Patient with complaints of chest pain and a history of cardiomyopathy with left ventricular thrombus HISTORY OF PRESENT ILLNESS Heather Turner is a 53 year old female who presents with chest discomfort. Patient had extensive cardiac workup done recently at [facility]. At that time, patient was noted to [...] a while. Patient recently started coming to [facility] as she had been going to [facility]. At this time, she will be admitted [...] (chronic obstructive pulmonary disease) Diverticulitis Epilepsy Hypertension WI (myocardial infarction) 07/20/2007 Slipped disc Stomach cancer Substance abuse Marijuana daily-for anxiety Pseudoseizures PAST SURGICAL HISTORY Past Surgical History: Procedure Laterality Date ANTERIOR CERVICAL FUSION CHOLECYSTECTOMY HAND/FINGER SURGERY UNLISTED Bilateral 3 L hand, 3 R hand METATARSAL OSTEOTOMY Right 08/14/2015 Surgeon: Luis Jones Jr., DPM; Location: [facility] OR Location TONSILLECTOMY ALLERGIES Allergies Allergen Reactions Green Tea [...] pulmonary edema versus atypical pneumonia. RL: [id number] AFC: [id number] End of report CHEST 1 VW Narrative [...] high risk of morbidity and mortality. [place] PARKING ASSISTANT was verified during stay Darrick Altamirano MD [facility] 2023-12-14 22:42:40 [facility] ADMIT H&P Date of Service: 12/14/2023 CHIEF COMPLAINT: shortness of breath Subjective History of Present Illness 53 year old female with a PMH significant for HFrEF (15-20% on 11/22/23) w/ LV thrombus, RLE DVT, RLL segmental PE, HTN, smoker, COPD, chronic low back pain, depression presenting from [facility] ED due to chest heaviness and lightheadedness. [...] (chronic obstructive pulmonary disease) Diverticulitis Epilepsy Hypertension [place] (myocardial infarction) 07/20/2007 Slipped disc Stomach cancer Substance abuse Marijuana daily-for anxiety Past Surgical History: Procedure Laterality Date ANTERIOR CERVICAL FUSION CHOLECYSTECTOMY HAND/FINGER SURGERY UNLISTED Bilateral 3 L hand, 3 R hand METATARSAL OSTEOTOMY Right 08/14/2015 Surgeon: Luis Jones Jr., ESTHER; Location: [facility] TONSILLECTOMY Family History Problem Relation Age of [...] On Eliquis Code Status: Full Code T [employer] EMERGENCY PHYSICIAN STAFF [facility] 2023-11-22 13:30:57 CCU Team Admit H&P Date [...] lumbar spinal stenosis, and depression presenting from [facility] ED due to SOB. Patient with NSTEMI [...] (chronic obstructive pulmonary disease) Diverticulitis Epilepsy Hypertension WI (myocardial infarction) 07/20/2007 Slipped disc Stomach cancer Substance abuse Marijuana daily-for anxiety Prior to Admission medications Medication Sig Start Date End Date Taking? Authorizing Provider metoprolol succinate XL 25 mg 24 hr tablet Take 1 tablet by mouth every morning. 05/11/23 Yes Doctor Unassigned, [place] spironolactone 25 mg tablet Take 1 tablet by mouth in the morning and 1 tablet in the evening. 09/30/23 Yes Doctor Unassigned, [place] DULoxetine 30 mg capsule Take 1 capsule by mouth in the morning. Doctor Unassigned, Ranson furosemide 20 mg tablet Take 1 tablet by mouth every morning and evening. Doctor Unassigned, Ranson Lacosamide (VIMPAT) 100 mg tablet Take 1 [...] 8 (eight) hours as needed. Doctor Unassigned, Ranson pantoprazole 40 mg EC tablet Take 40 mg by mouth daily. Doctor Unassigned, Ranson amLODIPine (NORVASC) 10 mg tablet Take 1 Tab by mouth daily. 09/20/15 Kylee Montez MD carvedilol (COREG) 6.25 mg tablet Take 1 Tab by mouth 2 (two) times daily with meals. 09/20/15 Kylee Montez MD lisinopril (PRINIVIL,ZESTRIL) 40 mg tablet Take 1 Tab by mouth daily. 09/20/15 Kylee Montez MD loratadine (CLARITIN LIQUI-GEL) 10 mg capsule Take by mouth daily. Doctor Unassigned, Ranson MULTIVITAMIN ORAL Take 1 Tab by mouth daily. Doctor Unassigned, Ranson omega-3 fatty acids-vitamin E (FISH OIL) 1,000 mg capsule Take 1 g by mouth daily. Doctor Unassigned, Ranson Allergies Allergen Reactions Green Tea Other - See comments Seizures Diclofenac Hypertension Keppra [Levetiracetam] Other - See comments Makes seizures worse Past surgical history: Past Surgical History: Procedure Laterality Date ANTERIOR CERVICAL FUSION CHOLECYSTECTOMY HAND/FINGER SURGERY UNLISTED Bilateral 3 L hand, 3 R hand METATARSAL OSTEOTOMY Right 08/14/2015 Surgeon: Luis Jones Jr., ESTHER; Location: [facility] OR [facility] TONSILLECTOMY Allergies: Allergies Allergen Reactions Green Tea [...] Friends and Family: Not on file Attends Yazidism Services: Not on file Active Member of [...] Otherwise, Sonographically unremarkable right upper quadrant. RL: 0532 HS:Y CHEST PULMONARY ANGIOGRAM Result Date: 11/22/2023 [...] consolidation or pleural effusion. No pneumothorax. RL: [id number] End of Report SSMENT/PLAN: Heather Turner is a 53 year old female admitted to the hospital with: Decompensated acute on chronic HFrEF 15-20% EF Cardiogenic shock NSTEMI Congestive hepatopathy Lactic acidosis LV thrombus HTN Iron deficiency anemia Patient in cardiogenic shock with lactic acidosis and congestive hepatopathy on milrinone and lasix. New LV thrombus identified on TTE, currently on heparin gtt. Negative Shelby Criteria. Blood cultures NGTD. Received cefepime 1 [...] ordering referrals and/or communicating with other health lawn caretaker (not separately reported), documenting clinical information in the electronic or other health record, and care coordination (not separately reported). 53 yo F with cardiogenic shock and PE Acute decompensated HFrEF NSTEMI Pulmonary embolism Polysubstance use LV thrombus COPD Elevated lactate- started on milrinone on 11/21 Continue milrinone Continue anticoagulation RHC/LHC today for BiV failure Cr Altamirano MD Soft Tile Setter [facility] Cardiology 11/23/23 [facility] [employer] 2023-11-22 02:28:50 MEDICINE White H&P PCP: PATIENT DOES NOT HAVE A PCP Date of Service: 11/21/2023 CHIEF COMPLAINT: SOB History of Present Illness Heather Turner is a 53 year old female with a PMH significant for HFrEF (~35% 05/2023), HTN, Smoker, COPD, chronic low back pain, depression presenting from [facility] ED due to SOB. Pt states her home pulse ox was reading 86% and was having trouble catching her breath. Associated sx include PETERSON, orthopnea, CP that is substernal, pressure-like, and non radiating. She says the SOB started earlier today with productive cough. Denies fevers or chills. No recent sick contacts. States she was treated for pneumonia at [facility] 2 weeks ago with levaquin and prednisone [...] (chronic obstructive pulmonary disease) Diverticulitis Epilepsy Hypertension WI (myocardial infarction) 07/20/2007 Slipped disc Stomach cancer Substance abuse Marijuana daily-for anxiety Past Surgical History: Procedure Laterality Date ANTERIOR CERVICAL FUSION CHOLECYSTECTOMY HAND/FINGER SURGERY UNLISTED Bilateral 3 L hand, 3 R hand METATARSAL OSTEOTOMY Right 08/14/2015 Surgeon: Luis Jones Jr., ESTHER; Location: [facility] TONSILLECTOMY Family History Problem Relation Age of [...] Depakote - c/w flomax Pain UncontrolledTylenol and [place] Prophylaxis: DVT- heparin Stress Ulcer: pantoprazole Code Status: addressed: Full Code Cris Mcnally, Internal Medicine Remmers Team Associated attestation - [...] results to the patient. Ivis Mcdermott MD Soft Tile Setter Department of Internal Medicine Division of Cardiovascular Disease [facility] Procedure Notes Date/Time Note Provider Source 2023-11-23 15:17:41 Left Heart Cath/Coronary Angiography Date of Service: 11/23/2023 3:18 PM Indication/Diagnosis: heart failure Consent source: self Consent type: indications/complications discussed with patient/legal guardian; written consent obtained Time out completed: yes Aseptic technique: Chlorprep Local Anesthesia: 1% lidocaine without epinephrine Sedation: fentanyl 50 mcg, Versed 2 mg Access site: right radial artery, RIJ Camargo 4.0 5fr 8 Fr IJ sheath [place] Rosalba Closure Method: TR Band, manual pressure [...] was present for the entire procedure. [facility] Associated attestation - Cris Molina MD - [...] of right sided failure. Cris Molina MD foreign language professor. Division of cardiovascular medicine [facility] IM-CARDIOVASCULAR DISEASE [facility] Notes Date/Time Note Provider Source 2024-04-03 00:54:53 Summary: Discharge Images from the original note were not included. Pt given printed and verbal discharge instructions regarding shortness of breath, encouraged hydration, Prescriptions provided divalproex ER 500 mg 24 hr tablet KCL 20 mEq tablet Discussed ibuprofen and to take with food to avoid GI distress. Pt verbalized understanding of instructions, pt awake alert oriented, resp reg unlabored, skin w/d, color appropriate for race, moves all ext well,pt encouraged to follow up with pcp Advised to seek medical attention for new/prolonged/worsening of symptoms, Symptoms No adverse reaction to meds given in ER noted upon discharge PIV d'cd, dressing to site, catheter in tact. Awake, alert oriented, resp reg unlabored, skin w/d, pt leaving in her wheelchair with grand daughter, in no apparent distress, Alma Gould RN [facility] 2024-04-03 00:10:43 Report to Campbell CAMPOS. Ely Hernández RN [facility] 2024-04-02 22:25:58 Pt having seizure like activity as I walked in pt. Activity lasting about 40 seconds. Pt alert and able to answer questions immediately after activity. Yesenia Hightower RN [facility] 2024-04-02 20:44:51 Pt arrived via person with complaints of feeling like her heart failure was acting up and her pulse ox machine was reading 94% and Hr 61 at home which is low for her. Pt states she has had 6 seizures today. Was seen at [facility] and reports no test were performed and she was told it was all stress related. While waiting for triage pt daughter hollered out she was having a seizure. Pt was found on the ground, no seizure activity noted. No post ictal period. Pt was able to sit up and get into personal WC and was brought to TR10. Pt reports she defecated on herself. Daughter states she hit her head. Pt complaining of lower back pain. Pt A&Ox4. Pt reports being out of meds for a month d/t financial issues. [facility] 2024-01-12 23:59:33 Pt given printed and verbal [...] in no apparent distress, Liliana Blair RN [facility] 2024-01-12 22:05:12 Pt states that she has been having chest pressure that started 2 hrs bell captain, pt states she also was trying to get in the bed and she fell hitting her right arm, knee, and foot. Mireille Cardenas RN [facility] 2024-01-12 21:59:00 Associated Order(s): EKG-12 Lead ONCE Pre-Procedure Diagnose(s): Chest pain, unspecified type Post-Procedure Diagnose(s): Chest pain, unspecified type [facility] Emergency Department Note Patient Name: Heather Turner Date of : 1970 53 year old female Treatment Room: TX1/TX1 Primary Care Physician: Lb Lieberman Patient Escorted by: Family [5] Mode of Arrival: Personal means [1] EMS Treatment Prior to ED Arrival: POTATO PANCAKE FRIER treatment comments: prescription meds Travel and Exposure [...] (chronic obstructive pulmonary disease) Diverticulitis Epilepsy Hypertension WI (myocardial infarction) 07/20/2007 Slipped disc Stomach cancer [...] 08/14/2015 Surgeon: Luis Jones Jr., DPM; Location: [facility] TONSILLECTOMY Review of Systems: Review of Systems Constitutional: Negative. HENT: Negative. Eyes: Negative. Respiratory: Negative. Breasts: Negative. Cardiovascular: Positive for chest pain. Gastrointestinal: Negative. Genitourinary: Negative. Musculoskeletal: Pain to right buttock Skin: Negative. Neurological: Negative. Psychiatric/Behavioral: Negative. Endocrine: Endocrine negative Physical Exam: ED Triage Vitals [01/12/246] Weight 81.2 kg (179 lb) Actual or [...] 0.01 - 0.07 10*3/uL COMP. METABOLIC PANEL (57340) - Abnormal NA 140 135 - 145 [...] VW Cbc with Diff Comp. Metabolic Panel (55316) Troponin I Orders Placed This Encounter Medications [...] ED Physician in the absence of a strip cutter: yes Previous ECG: Previous ECG: Unavailable Interpretation: [...] Electronically signed by: Radha Wyatt MD 01/12/24 9475 [facility] 2024-01-12 16:22:00 TRANSITIONAL CARE MANAGEMENT ASSESSMENT 01/12/2024 Heather Turner [id number] Heather Turner is a 53 year old /White female was admitted on 01/09/24 to [facility] ICU. She was discharged on 01/10/24 with discharge disposition of HR- Routine Discharge. Admitting Physician: Darrick Altamirano Discharge Diagnosis: Hypotension No linked episodes TCM Qjf-dnpj-zr-face outreach documentation: Care Transition CM made f/u call to pt post-discharge x2. No response and call went to voicemail. CM left a discreet message with purpose of call and CM's call back information. Discharge Assessment Chart Assessed: 01/12/24 TCM Outreach Completed: 01/12/24 Future Appointments: Veronique Carrillo RN [facility] 2024-01-12 11:40:32 Care Transition CM made f/u call to pt post-discharge. No response and call went to voicemail. CM left a discreet message with purpose of call and CM's call back information. Veronique Carrillo RN, BSN Seed Cutter-Transitions of Care [phone] [facility] 2024-01-10 15:32:40 Problem: Discharge Planning Goal: Adequate for discharge 01/10/2024 153 by Addis Bates RN Outcome: Resolved 01/10/2024 153 by Addis Bates RN Outcome: Adequate for discharge Goal: Effective communication 01/10/2024 153 by Addis Bates RN Outcome: Resolved 01/10/2024 1532 by Addis Bates RN Outcome: Adequate for discharge Problem: Falls, Risk of Goal: Absence of falls 01/10/2024 153 by Addis Bates RN Outcome: [...] Bates RN Outcome: Resolved 01/10/2024 1532 by Postorino, Addis, RN Outcome: Adequate for discharge Problem: Discharge [...] Outcome: Adequate for discharge Addis Bates RN [facility] 2024-01-10 15:32:28 Problem: Discharge Planning Goal: Adequate [...] in pain sensation Outcome: Adequate for discharge T [facility] 2024-01-10 14:55:21 Problem: Discharge Planning Goal: Adequate [...] Outcome: Adequate for discharge Wayne Merrill RN [facility] 2024-01-10 01:16:51 Problem: Discharge Planning Goal: Adequate [...] in pain sensation Outcome: Progressing as expected TNEY Walsh RN [facility] 2024-01-09 22:42:54 Patient admitted to IMU for diagnosis of pneumonia, elevated D-dimer, hypotension, chest pain. Patient agrees to admission, discussed plan of care with patient and family. Patient is awake, alert, oriented, resp reg unlabored, color appropriate for race, PIV intact x2. No adverse reaction to medications administered while in ED. Belongings with patient to unit. Report to BETH Reyez. [facility] 2024-01-09 22:35:43 Report given to BETH Reyez IMU [facility] 2024-01-09 20:04:51 Patent resting Sheri Harding RN [facility] 2024-01-09 16:09:08 Patient states: "I started having chest pain this morning" Reports history of WI, blood clots in heart, lung and legs, CHF. Malinda Andres RN [facility] 2024-01-09 16:07:00 Associated Order(s): EKG-12 Lead ROUTINE ONCE Pre-Procedure Diagnose(s): Chest pain, unspecified type Post-Procedure Diagnose(s): Chest pain, unspecified type [facility] Emergency Department Note Patient Name: Heather Turner Date of : 1970 53 year old female Treatment Room: TX2/TX2 Primary Care Physician: Lb Lieberman Patient Escorted [...] SOB that started this morning. Hx of WI, PE and CHF. She rated her pain [...] vomiting or diarrhea. 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 METABOLIC PANEL (06146) D-DIMER Orders Placed This Encounter Medications aspirin tablet 325 mg morpHINE (4 mg/mL) injection 4 mg ondansetron (ZOFRAN (PF)) injection 4 mg First Provider Eval: ED Events Date/Time Event User Comments 01/09/24 160 Medical Screening Begins OLENA DEL CASTILLO NP O -- 01/09/24 160 First Provider Evaluation OLENA DEL CASTILLO NP -- ED COURSE Labs, chest x-ray, ECG, Aspirin, Zofran, Fentanyl, CT chest ED Course as of 01/09/242115 Sat Jan 09, 20242003 Patient hand off to Lorelei HURST [JA] 181 Impression: No consolidation or pleural effusion. No [...] ED Physician in the absence of a strip cutter: yes Previous ECG: Previous ECG: Compared to [...] SOB that started this morning. Hx of WI, PE and CHF. She rated her pain [...] SOB that started this morning. Hx of WI, PE and CHF. She rated her pain [...] and patient evaluation by RUBY Berman MD, [facility] Emergency Medicine [facility] 2023-12-17 10:18:53 Care Transitions Nurse CM made f/u call to patient post-discharge. No answer, call went to voicemail. CM left discreet message with CM's call back information. CM will try again at a later time. MANSOOR Lindsey, RN, CCRN Seed Cutter, Transitions of Care [email or web address] Jodi Berg RN [facility] 2023-12-15 10:45:32 Problem: Respiratory Function - Impaired [...] Outcome: Adequate for discharge Delaney Laird RN [facility] 2023-12-15 05:41:00 Problem: Respiratory Function - Impaired [...] Goal: Effective communication Outcome: Progressing as expected [facility] 2023-12-14 18:20:42 Patient admitted to [facility] 2215 for diagnosis of shortness of breath. Patient agrees to admission, discussed plan of care with patient and family. Patient is awake, A&Ox4, RR even and unlabored on RA. Color appropriate for race. PIV intact x1. No adverse reaction to medications administered while in ED. Belongings with patient to unit. [facility] 2023-12-14 18:19:06 Nurse Report Report given to BETH Romero. Chief complaint, assessment findings, infusion verify and orders reviewed. Plan of care discussed with patient and both nurses. Patient/family members verbalized understanding. Lisette Murphy RN [facility] 2023-12-14 14:54:55 Report given to Amy Murphy RN. Updated on patient's medical condition, history of present condition and plan of care. T Leo Hyde RN [facility] 2023-12-14 13:30:46 Patient arrived in wheelchair with c/o shortness of breath starting this morning. Patient attempted to try her albuterol at home with no success. Patient attempt to feel better with husbands oxygen. Started to complaining of reproducible chest pain approximately 2 hours ago. Hx: CHF Lisette Murphy RN [facility] 2023-12-14 13:24:00 AdmissionCare Guideline: Chest Pain - [...] care. AdmissionCare documentation entered by: Mj Bryan [facility], 27th edition, Copyright ? 2022 [facility] MD [employer] [facility] All Rights Reserved. [id number]:00 [facility] 2023-12-03 18:26:32 Pt requesting to leave AMA, patient educated on risks, and benefits of leaving AMA. Patient continues to request to leave AMA. CCU notified of patients request. Patient educated on risk and benefits. AMA paperwork signed by patient. Duong Tello RN [facility] 2023-12-03 14:42:13 Problem: Respiratory Function - Impaired Goal: Adequate oxygenation Outcome: Progressing as expected Goal: Adequate work of breathing Outcome: Progressing as expected Problem: Falls, Risk of Goal: Absence of falls Outcome: Progressing as expected [facility] 2023-12-02 17:16:35 Report to Rad with AAEM, care transferred Sheri Tompkins RN [facility] 2023-12-02 16:47:06 Nurse Report Report given to Duong CAMPOS at [facility], Chief complaint, assessment findings, infusion verify and orders reviewed. Sheri Tompkins RN [facility] 2023-12-02 16:40:00 Pt tolerating bipap, updated on status, skinw/d [facility] 2023-12-02 16:09:00 Placed on bedpan [facility] 2023-12-02 16:08:24 Report to Turner CAMPOS. Ely Hernández RN [facility] 2023-12-02 13:01:55 Pt arrived via private car with c/o chest pain starting about 30 minutes bell captain. Selina Llanes RN [facility] 2023-12-02 12:56:00 Associated Order(s): EKG-12 Lead ROUTINE ONCE Pre-Procedure Diagnose(s): Other chest pain Post-Procedure Diagnose(s): Other chest pain [facility] Emergency Department Note Patient Name: Heather Turner Date of : 1970 53 year old female Treatment Room: CT1/CT1 Primary Care Physician: PATIENT DOES NOT HAVE A PCP Patient Escorted by: Family [5] Mode of Arrival: Personal means [1] EMS Treatment Prior to ED Arrival: POTATO PANCAKE FRIER treatment: Medication (comment) POTATO PANCAKE FRIER treatment comments: tylenol PM X2 at 0830, [...] began today. PT was recently admitted to [facility] ICU for PE, chf and cardiogenic shock [...] (chronic obstructive pulmonary disease) Diverticulitis Epilepsy Hypertension WI (myocardial infarction) 07/20/2007 Slipped disc Stomach cancer [...] 08/14/2015 Surgeon: Luis Jones Jr., ESTHER; Location: [facility] OR [facility] TONSILLECTOMY Review of Systems: Review of [...] 0.01 - 0.07 10*3/uL COMP. METABOLIC PANEL (87423) - Abnormal NA 138 135 - 145 [...] VW Cbc with Diff Comp. Metabolic Panel ([id number]) Troponin I N-Terminal Pro-Bnp BLOOD CULTURE SCREEN [...] interpretation with external provider(s): Dr. Simental of [facility] cardiology accepting to CCU. Risk Prescription drug [...] signed by: Connor Renee MD 12/02/23 1632 [facility] 2023-12-01 10:36:39 TRANSITIONAL CARE MANAGEMENT ASSESSMENT 12/01/2023 Heather Turner [id number] Heather Turner is a 53 year old /White female was admitted on 11/21/[address] She was discharged on 11/28/23 with discharge disposition of HR- Routine Discharge. Admitting Physician: Cr Altamirano Discharge Diagnosis: Decompensated acute on chronic HFrEF 15-20% EF Cardiogenic shock NSTEMI 2/2 stress induced cardiomyopathy 2/2 PE and drug use No linked episodes TCM Twi-cgnk-zw-face outreach documentation: Discharge Assessment Chart Assessed: 12/01/23 [...] cost of $44. 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 to senior technical manager .) Do you know how to take your medications?: Yes Supplies Did you receive applicable home medical supplies/equipment?: N/A Follow Up Appointment Has a follow up appointment been scheduled?: No May I assist with scheduling this appointment?: Patient has outside PCP (Patient stated she was told that her providers at at [facility] and will not be following [facility]) Do you have any questions about your [...] stated she has to follow up with [facility] Do you understand your discharge instructions? Yes [...] activity): as tolerated Were you able to picker / packer all of your medications? No unable to [...] N/A Ensure they have contact info for [place]: na Have you received your DME? N/A [...] to the emergency room Madeline Mckinley RN [facility] 2023-11-30 10:41:04 TRANSITIONAL CARE MANAGEMENT ASSESSMENT 11/30/2023 Heather Turner [id number] Heather Turner is a 53 year old /White female was admitted on 11/21/[address] She was discharged on 11/28/23 with discharge disposition of HR- Routine Discharge. Admitting Physician: Cr Altamirano Discharge Diagnosis: Decompensated acute on chronic HFrEF 15-20% EF Cardiogenic shock NSTEMI 2/2 stress induced cardiomyopathy 2/2 PE and drug use No linked episodes TCM Cwl-vdrh-kf-face outreach documentation: Transition CM attempted to contact patient for post discharge follow up. CM left a message with male friend contact as he stated patient was asleep and not available. Future Appointments: Madeline Mckinley RN [facility] 2023-11-28 15:39:19 Problem: Bleeding, Risk of Goal: [...] Outcome: Adequate for discharge Aliyah Francisco RN [facility] 2023-11-27 14:00:02 Problem: Discharge Planning Goal: Adequate for discharge 11/27/2023 1359 by Merlyn Ndiaye RN Outcome: Progressing as expected 11/27/2023950 by Merlyn Ndiaye, RN Outcome: Progressing as expected Problem: Bleeding, Risk of Goal: Absence of impaired coagulation signs and symptoms 11/27/2023 135 by Merlyn Ndiaye RN Outcome: Progressing as expected 11/27/2023950 by Merlyn Ndiaye, RN Outcome: Progressing as expected Goal: Absence of active bleeding 11/27/2023 135 by Merlyn Ndiaye RN Outcome: [...] or below patient's documented comfort goal 11/27/2023 1359 by Merlyn Ndiaye RN Outcome: [...] Outcome: Progressing as expected Merlyn Ndiaye RN [facility] 2023-11-27 09:51:54 Problem: Bleeding, Risk of Goal: [...] new skin breakdown Outcome: Progressing as expected [facility] 2023-11-27 05:16:42 Problem: Bleeding, Risk of Goal: [...] new skin breakdown Outcome: Progressing as expected [facility] Mariely Wallace RN [facility] 2023-11-25 17:12:17 Problem: Bleeding, Risk of Goal: [...] new skin breakdown Outcome: Progressing as expected [facility] 2023-11-25 05:27:41 Problem: Bleeding, Risk of Goal: [...] Outcome: Progressing as expected Luda Vee RN [facility] 2023-11-24 18:52:11 Summary: [facility] Note Spoke with Rich Spencer from [facility] at 18:12. Case #[id number]. T Brice Jackson RN [facility] 2023-11-24 10:16:03 Problem: Bleeding, Risk of Goal: [...] new skin breakdown Outcome: Progressing as expected [facility] 2023-11-23 10:41:53 Problem: Bleeding, Risk of Goal: [...] signs and symptoms 11/23/2023 1041 by Brice Jackson, BETH Outcome: Progressing as expected 11/23/2023 1040 by [...] Brice Jackson RN Outcome: Progressing as expected [facility] 2023-11-23 10:40:04 Problem: Bleeding, Risk of Goal: [...] new skin breakdown Outcome: Progressing as expected [facility] 2023-11-22 05:54:04 Problem: Bleeding, Risk of Goal: [...] new skin breakdown Outcome: Progressing as expected Hamlet Osullivan RN [facility] 2023-11-21 23:58:07 Patient transferred to [place] for diagnosis of chest pain, NSTEMI, COPD exacerbation Patient agrees to transfer/admit plan and verbalized understanding of plan of care, family aware of plan Patient awake alert, oriented, resp reg unlabored, skin w/d PIV patent, no s/s infiltration noted, heparin infusing No adverse reaction to medications given while in ED. Report given to [facility] EMS personnel Nery Orellana RN [facility] 2023-11-21 23:55:09 Nurse Report Report given to BETH Zuleta in [place]. Chief complaint, assessment findings, infusion verify and orders reviewed. Plan of care discussed with nurse. Nery M Esteban, RN [facility] 2023-11-21 23:18:14 Associated Order(s): Critical Care Critical [...] separately billable procedures and treating other patients. [facility] 2023-11-21 23:11:13 Pt c/o difficulty breathing at this time. Pt placed on 2L O2 NC for comfort. Dago Diehl [facility] 2023-11-21 21:15:59 Summary: Triage CC: patient family [...] Appears in mild distress Alma Gould RN [facility] 2023-11-21 21:07:00 EMERGENCY DEPARTMENT ENCOUNTER [facility] Patient Name: Heather Turner Date of : 1970 53 year old Exam Room:CT2/[facility] Primary Care Physician: PATIENT DOES NOT HAVE A PCP Pre- Hospital Patient Escorted by: Family [5] Mode of Arrival: Personal means [1] EMS Treatment Prior to ED Arrival: POTATO PANCAKE FRIER treatment: None ED Events Date/Time Event User [...] (chronic obstructive pulmonary disease) Diverticulitis Epilepsy Hypertension WI (myocardial infarction) 07/20/2007 Slipped disc Stomach cancer Substance abuse Marijuana daily-for anxiety Tetanus received in last 5 years: Unknown Childhood immunizations: Up-to-date Past Surgical History Past Surgical History: Procedure Laterality Date ANTERIOR CERVICAL FUSION CHOLECYSTECTOMY HAND/FINGER SURGERY UNLISTED Bilateral 3 L hand, 3 R hand METATARSAL OSTEOTOMY Right 08/14/2015 Surgeon: Luis Jones Jr., DPM; Location: [facility] TONSILLECTOMY Allergies Allergies Allergen Reactions Green Tea [...] Endocrine negative Physical Exam ED Triage Vitals [11/21/230] Weight 92.1 kg (203 lb) Actual or [...] PLT ESTIMATE Normal Normal COMP. METABOLIC PANEL (54274) - Abnormal NA 134 (*) 135 - [...] consolidation or pleural effusion. No pneumothorax. RL: 2825 End of Report Orders and Treatments Orders Placed This Encounter Procedures Critical Care XR CHEST 1 VW CBC WITH DIFF COMP. METABOLIC PANEL (73862) AMYLASE TROPONIN I N-TERMINAL PRO-BNP URINALYSIS URINE [...] in 0.45 % NS Procedures EKG Time 2115 Rate 127 Sinus tachycardia Right axis No acute ischemia Abnormal EKG Notes & MDM Patient was evaluated for an emergency medical condition related to Shortness of Breath and Chest Pain DDX Pneumonia Bronchitis ACS ED Course as of 11/21/23 2322 Sat November 21, 2023 2312 Transfer initiated [...] exacerbation. She will be transferred down to [place] to the [place] team in the cardiology department for further [...] on file Megan Rondon Jr., MD Clinical Soft Tile Setter [facility] Emergency Department [employer] is used frequently and may produce errors. Promptly contact for obvious discrepancies. Megan Rondon MD 11/21/23 7608 [facility] 2023-09-11 11:34:02 Chief Complaint Patient presents with Follow-up Hospitalization Krissy Cannon LVN [facility] 2023-08-12 16:08:34 Bryan spoke to patient and patient decided to leave AMA. AMA form signed by patient and attached to paperwork. Patient in stable condition with AMA. IV line removed and patient was assisted onto wheelchair and moved [facility]. Patient called her prior to leaving room and will be picking up patient. ME Dumont RN [facility] 2023-08-12 15:56:21 Patient requesting to talk to provider - provider aware. Patient refused tylenol as she said medication does not improve her condition and she does not want to throw it up. Patient also refusing blood draw at this time. [facility] 2023-08-12 14:50:00 Patient's name and verified with [...] (chronic obstructive pulmonary disease) Diverticulitis Epilepsy Hypertension WI (myocardial infarction) 07/20/2007 Slipped disc Stomach cancer Substance abuse Marijuana daily-for anxiety Allergies noted in chart. Vitals obtained. Assessment performed. IV in place and patent. Placed on continuous spo2/cardiac monitoring, HR 106 Bed low and locked, secured with two rails, call light within reach. Belongings at bedside. Patient aware of plan of care. Steph Dumont RN [facility] 2023-08-12 14:17:22 Patient had witnessed seizure like activity. DO Flor at bedside. Patient stopped seizure activity and had no postictal phase. Patient coherent, alert and oriented/answering all questions appropriately. [facility] 2023-08-12 13:45:33 Patient here for chest pain that started approximately 1 hour ago. Patient had seizure like activity in the vehicle while attempting to get patient out of the car, patient had no post ictal phase. Patient c/o substernal chest pain and jaw pain. [facility] Jasvir Reaves RN [facility] 2023-08-12 13:42:00 [facility] Emergency Department Note Patient Name: Heather Turner Date of : 1970 53 year old female Treatment Room: [place] [address] Primary Care Physician: PATIENT DOES NOT HAVE A PCP Patient Escorted by: Family [5] Mode of Arrival: Personal means [1] EMS Treatment Prior to ED Arrival: POTATO PANCAKE FRIER treatment: None Travel and Exposure Screening: Symptoms [...] (chronic obstructive pulmonary disease) Diverticulitis Epilepsy Hypertension WI (myocardial infarction) 07/20/2007 Slipped disc Stomach cancer [...] 08/14/2015 Surgeon: Luis Jones Jr., DPM; Location: [facility] TONSILLECTOMY Review of Systems: Review of [...] 0.01 - 0.07 10*3/uL COMP. METABOLIC PANEL (09569) - Abnormal NA 140 135 - 145 [...] Procedures Cbc with Diff Comp. Metabolic Panel (17262) Urinalysis Lactic Acid Whole Blood Troponin I [...] [PS] ED Course User Index [PS] Mj Bryan, Diagnosis/Impression as of 08/12/23 1605 Seizure Chest [...] for follow-up Yehuda Arcos MD Specialty: PN-NEUROLOGY [facility] AND [address] [id number] [facility]-Emergency Department Specialty: Emergency Medicine [address] [place] [id number] Instructions: If symptoms worsen as documented in the discharge Electronically signed by: Mj Bryan DO 08/12/23 1605 Mj Bryan DO 08/12/23 1605 [facility]
[2024-04-23] MEDS ORDERED: ALBUTEROL 2.5 MG/3 ML NEB SOL ONE (13:55)
[2024-04-23] MEDS ORDERED: IPRATROPIUM BROM 0.5MG/2.5ML ONE (13:55)
[2024-04-23 14:45] LABS: Albumin 2.9 g/dL (3.4-5.0); Albumin/Globulin Ratio 0.7 (1.1-1.8); Alkaline Phosphatase 96 U/L (45-117); Anion Gap 9.8 mEq/L (5.0-15.0); BUN Blood Urea Nitrogen 7 mg/dL (7-18); Bicarbonate 23 mEq/L (21-32); Bilirubin Total 0.3 mg/dL (0.2-1.0); Glomerular Filtration Rate 102 ml/min (=/>90); Glucose Level 95 mg/dL (74-106); NT PRO-BNP 859 pg/mL (<125); Protein, Total 6.9 g/dL (6.4-8.2); Sodium Level 140 mEq/L (136-145); Troponin High Sensitivity 10.2 pg/mL (<58.9)
--- NOTE | 2024-04-23 14:50 | RAD REPORT ---
EXAMINATION: ONE VIEW CHEST XR CLINICAL INDICATION: Female, 54 years old.DYSPNEA TECHNIQUE: 1 View, AP supine, X-ray of the chest was performed. [id number]. COMPARISON: 04/02/24 FINDINGS: Lungs and pleura: Clear lungs. No effusion. Heart and mediastinum: Normal heart size. Unremarkable mediastinal contours. Osseous structures: No acute abnormality. Tubes/lines: None Other: None. IMPRESSION: No acute intrathoracic abnormality.
[2024-04-23 15:06] LABS: Absolute Basophils 0.1 K/uL (0-0.5); Absolute Eosinophils 0.1 K/uL (0-0.5); Absolute Lymphocytes (CBC) 2.5 K/uL (0.7-4.9); Absolute Monocytes 0.6 K/uL (0.1-1.3); Absolute Neutrophil 4.6 K/uL (1.8-8.0); Basophils % 1.6 % (0-1.3); Eosinophils % 1.1 % (0-4.4); Hematocrit 35.6 % (36.0-45.0); Hemoglobin 11.1 g/dL (12.0-15.0); Lymphocytes % 31.4 % (15.3-44.8); MCH 24.4 pg (27.0-35.0); MCHC 31.1 g/dL (32.0-36.0); MCV 78.4 fL (80-100); MPV 6.4 fL (7.6-11.3); Monocytes % 7.6 % (3.3-12.3); Neutrophils % 58.3 % (41.7-73.7); Platelets 464 thou/uL (152-406); RBC Red Blood Cell Count 4.54 M/uL (3.86-4.86); Red Cell Distribution Width 20.2 % (12.1-15.2)
[2024-04-23 15:21] LABS: ALT/SGPT < 14 U/L (13-56); AST/SGOT < 10 U/L (15-37); Bilirubin Direct < 0.2 mg/dL (0-0.2); Bilirubin Indirect, Calculated 0.1 mg/dL (0.2-0.8); Magnesium 2.1 mg/dL (1.6-2.4); Potassium 3.8 mEq/L (3.5-5.1)
[2024-04-23] MEDS ORDERED: KETOROLAC 30 MG/ML INJ ONE (15:26)
[2024-04-23] MEDS ORDERED: ONDANSETRON 4 MG/2 ML VIAL ONE (15:26)
--- NOTE | 2024-04-23 15:44 | ER ---
Nurse's Notes [facility] Name: Heather Coon Age: 54 yrs Sex: Female : 1970 Arrival Date: 04/23/2024 Time: 13:04 Bed 17 Private MD: Diagnosis: Breakthrough seizure;Acute bronchitis Presentation: 04/23 13:00 Chief complaint: EMS states: WITNESSED SEIZURE BY FAMILY. UPON EMS ARRIVAL PT WITH db SEIZURE LIKE ACTIVITY. SEIZURE STOPPED PRIOR TO INTERVENTION. PT POST ICTAL UPON ARRIVAL TO ER. Coronavirus screen: Client denies travel out of the [place] in the last 14 days. At this time, the client does not indicate any symptoms associated with coronavirus-19. Ebola Screen: Patient negative for fever greater than or equal to 101.5 degrees Fahrenheit, and additional compatible Ebola Virus Disease symptoms Patient denies exposure to infectious person. Patient denies travel to an Ebola-affected area in the 21 days before illness onset. No symptoms or risks identified at this time. Initial Sepsis Screen: Does the patient meet any 2 criteria? No. Patient's initial sepsis screen is negative. Does the patient have a suspected source of infection? No. Patient's initial sepsis screen is negative. Risk Assessment: Do you want to hurt yourself or someone else? Patient reports no desire to harm self or others. Unable to obtain. Onset of symptoms was April 23, 2024. 13:00 Method Of Arrival: EMS: [facility] db 13:00 Acuity: ANDER 2 db Triage Assessment: 13:16 General: Appears in no apparent distress. comfortable, Behavior is calm, cooperative. db Pain: Unable to use pain scale. NOT TALKING. POST ICTAL. Neuro: Level of Consciousness is awake, alert, confused, Oriented to none. Respiratory: Airway is patent Respiratory effort is even, unlabored, Respiratory pattern is regular, symmetrical. 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 - Post-menopause, Not db Historical: - Allergies: 13:16 fluoxetine; db 13:16 Green Tea; db 13:16 Keppra; not an allergy; db - Home Meds: 13:16 Depakote 500 mg Oral tablet 1 tab 2 times per day [Active]; Keppra Oral [Active]; db - PMHx: 13:16 Bipolar disorder; Cancer-Cervical; Chronic obstructive lung disease; Chronic pain; db Congestive heart failure; Depression; Diverticulitis; Herniated Back Disc; Hypertension; intestinal mass; Myocardial infarction; pt reports hx of seizures; Spastic Muscles; Anxiety; Arthritis; stroke; - PSHx: 13:16 cervical fusion; Cholecystectomy; foot; Tonsillectomy; back surgery; db - Immunization history:: Adult Immunizations unknown. - Infectious Disease History:: Denies. - Social history:: Smoking status: Patient reports the use of cigarette tobacco products, smokes one pack cigarettes per day. - Family history:: not pertinent. Screenin:43 [facility] ED Fall Risk Assessment (Adult) History of falling in the last 3 months, db including since admission No falls in past 3 months (0 pts) Confusion or Disorientation No (0 pts) Intoxicated or Sedated No (0 pts) Impaired Gait No (0 pts) Mobility Assist Device Used No (0 pt) Altered Elimination No (0 pt) Score/Fall Risk Level 0 - 2 = Low Risk Oriented to surroundings, Maintained a safe environment. Abuse screen: Denies threats or abuse. Denies injuries from another. Nutritional screening: No deficits noted. Tuberculosis screening: No symptoms or risk factors identified. Assessment: 13:15 Reassessment: SEE TRIAGE FOR INITIAL ASSESSMENT. db 14:25 Reassessment: Patient appears in no apparent distress at this time. Patient and/or db family updated on plan of care and expected duration. Pain level reassessed. Patient is alert, oriented x 3, equal unlabored respirations, skin warm/dry/pink. XRAY IS AT BEDSIDE. Reassessment: PT SITTING UP TALKING ON THE PHONE. General: Appears in no apparent distress. comfortable, Behavior is calm, cooperative, appropriate for age. Neuro: Level of Consciousness is awake, alert, obeys commands, Oriented to person, place, time, situation. 15:07 Reassessment: Patient appears in no apparent distress at this time. Patient and/or db family updated on plan of care and expected duration. Pain level reassessed. Patient is alert, oriented x 3, equal unlabored respirations, skin warm/dry/pink. Patient states feeling better. Patient states symptoms have improved. 15:31 Reassessment: PATIENT COMPLAINT OF BODY PAIN FROM SEIZURE. SEE MAR FOR MEDICATION db ADMINISTRATION. Vital Signs: 13:00 BP 134 / 72; Pulse 74; Resp 18; Temp 98.6(O); Pulse Ox 98% ; Weight 78.5 kg; db 14:00 BP 117 / 47; Pulse 69; Resp 16; Pulse Ox 100% on R/A; db 15:30 BP 122 / 82; Pulse 82; Resp 18; Pulse Ox 98% on R/A; db Sterling Coma Score: 13:16 Eye Response: spontaneous(4). Motor Response: obeys commands(6). Verbal Response: db confused(4). Total: 14. ED Course: 13:09 Patient arrived in ED. db 13:14 Arlette Lyles, RN is Primary Nurse. db 13:16 Triage completed. db 13:16 Arm band placed on Patient placed in an exam room. db 13:25 Gus Canela MD is Attending Physician. rt 13:43 EKG done, reviewed by Gus Canela MD. db 13:44 Patient has correct armband on for positive identification. Bed in low position. Call db light in reach. Side rails up X 1. Seizure precautions initiated. Client placed on continuous cardiac and pulse oximetry monitoring. NIBP monitoring applied. potline monitor on. Pulse ox on. NIBP on. Warm blanket given. 14:14 Missed attempt(s): 22 gauge in right forearm. Bleeding controlled, band aid applied, db catheter tip intact. 14:14 Initial lab(s) drawn, by me, sent to lab. db 14:48 XRAY Chest (1 view) In Process Unspecified. EDMS 14:55 Lab(s) recollected, by me, sent to lab. Inserted saline lock: 20 gauge in right em1 forearm, using aseptic technique. Blood collected. Flushed with 10 mL NS. 16:06 Provided Education on: DISCHARGE AND FOLLOWUP . db 16:06 No provider procedures requiring assistance completed. IV discontinued, intact, db bleeding controlled, No redness/swelling at site. Administered Medications: 14:02 Drug: DuoNeb Nebulize (3:1) (2.5 mg - 0.5 mg) 3 ml Nebulizer once Route: Nebulizer; db 14:25 Follow up: Response: No adverse reaction db 15:28 Drug: Ketorolac IVP 15 mg IVP once Route: IVP; Site: right forearm; db 16:06 Follow up: Response: No adverse reaction db 15:30 Drug: Ondansetron IVP 4 mg IVP once; over 2 minutes Route: IVP; Site: right forearm; db 16:04 Follow up: Response: No adverse reaction db 15:48 Drug: MethylPrednisoLONE IVP 125 mg IVP once Route: IVP; Site: right forearm; db 16:02 Follow up: Response: No adverse reaction db Medication: 13:45 VIS not applicable for this client. db Outcome: 15:44 Discharge ordered by . rt 16:06 Discharged to home via wheelchair, with family, db 16:06 Condition: stable 16:06 Discharge instructions given to patient, Instructed on discharge instructions, follow up and referral plans. Prescriptions given X 2, 16:09 Patient left the ED. db Signatures: Dispatcher [employer] [place] em1 Arlette Lyles RN RN db Gus Canela MD MD rt
--- NOTE | 2024-04-23 15:44 | EDPHYS ---
Physician Documentation [facility] Name: Heather Coon Age: 54 yrs Sex: Female : 1970 Arrival Date: 04/23/2024 Time: 13:04 Bed 17 Private MD: ED Physician Gus Canela HPI: 04/23 15:29 This 54 yrs old Female presents to ER via EMS with complaints of Probable Seizure. rt 15:30 Patient presents to the ED with reported seizure. She does have a history of seizure rt disorder. Patient returned to baseline neurologic status. Patient also reports a chest pain, shortness of breath, modestly improved with breathing treatment prior to arrival. Denies other acute complaints at this time, symptoms are moderate in severity, no other aggravating or alleviating factors.. 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 - Post-menopause, Not db Historical: - Allergies: 13:16 fluoxetine; db 13:16 Green Tea; db 13:16 Keppra; not an allergy; db - Home Meds: 13:16 Depakote 500 mg Oral tablet 1 tab 2 times per day [Active]; Keppra Oral [Active]; db - PMHx: 13:16 Bipolar disorder; Cancer-Cervical; Chronic obstructive lung disease; Chronic pain; db Congestive heart failure; Depression; Diverticulitis; Herniated Back Disc; Hypertension; intestinal mass; Myocardial infarction; pt reports hx of seizures; Spastic Muscles; Anxiety; Arthritis; stroke; - PSHx: 13:16 cervical fusion; Cholecystectomy; foot; Tonsillectomy; back surgery; db - Immunization history:: Adult Immunizations unknown. - Infectious Disease History:: Denies. - Social history:: Smoking status: Patient reports the use of cigarette tobacco products, smokes one pack cigarettes per day. - Family history:: not pertinent. ROS: 15:30 Constitutional: Negative for fever, chills, and weight loss, Abdomen/GI: Negative for rt abdominal pain, nausea, vomiting, diarrhea, and constipation, MS/Extremity: Negative for injury and deformity, Skin: Negative for injury, rash, and discoloration, 15:30 Cardiovascular: Positive for chest pain, Negative for edema, 15:30 Respiratory: Positive for shortness of breath, Negative for cough, 15:30 Neuro: Positive for seizure activity, Negative for altered mental status, Exam: 15:30 Constitutional: This is a well developed, well nourished patient who is awake, alert, rt and in no acute distress. Head/Face: Normocephalic, atraumatic. Chest/axilla: Normal chest wall appearance and motion. Nontender with no deformity. No lesions are appreciated. Cardiovascular: Regular rate and rhythm with a normal S1 and S2. No gallops, murmurs, or rubs. Normal PMI, no JVD. No pulse deficits. Respiratory: Lungs have equal breath sounds bilaterally, clear to auscultation and percussion. No rales, rhonchi or wheezes noted. No increased work of breathing, no retractions or nasal flaring. Abdomen/GI: Soft, non-tender, with normal bowel sounds. No distension or tympany. No guarding or rebound. No evidence of tenderness throughout. Skin: Warm, dry with normal turgor. Normal color with no rashes, no lesions, and no evidence of cellulitis. MS/ Extremity: Pulses equal, no cyanosis. Neurovascular intact. Full, normal range of motion. Neuro: Awake and alert, GCS 15, oriented to person, place, time, and situation. Cranial nerves II-XII grossly intact. Motor strength 5/5 in all extremities. Sensory grossly intact. Cerebellar exam normal. Normal gait. 15:30 ECG was reviewed by the Attending Physician. Vital Signs: 13:00 BP 134 / 72; Pulse 74; Resp 18; Temp 98.6(O); Pulse Ox 98% ; Weight 78.5 kg; db 14:00 BP 117 / 47; Pulse 69; Resp 16; Pulse Ox 100% on R/A; db 15:30 BP 122 / 82; Pulse 82; Resp 18; Pulse Ox 98% on R/A; db Nicole Coma Score: 13:16 Eye Response: spontaneous(4). Motor Response: obeys commands(6). Verbal Response: db confused(4). Total: 14. MDM: 13:27 Patient medically screened. rt 16:09 Differential diagnosis: Recurrent seizure, pneumonia, CHF, COPD. Data reviewed: vital rt signs, nurses notes, lab test result(s), EKG, radiologic studies. Consideration of Admission/Observation Escalation of care including admission/observation considered. Patient with improving symptoms in the emergency department, given chronicity of symptoms, would believe that 1 set of enzymes is sufficient to rule out an acute coronary syndrome, will treat patient as an acute bronchitis, stable for outpatient care.. I considered the following discharge prescriptions or medication management in the emergency department Medications were administered in the Emergency Department. See MAR. Independent interpretation of the following test(s) in the Emergency Department X-Ray: My interpretation is No consolidation seen on my interpretation of x-ray images. Test considered but Not performed: CT: Low suspicion for pulmonary embolus, no head trauma, return to baseline mental status, CT scans of the head, chest is not indicated. Care significantly affected by the following chronic conditions: Congestive Heart Failure, Chronic Obstructive Pulmonary Disease. Counseling: I had a detailed discussion with the patient and/or guardian regarding the historical points, exam findings, and any diagnostic results supporting the discharge/admit diagnosis, lab results, radiology results, the need for outpatient follow up, to return to the emergency department if symptoms worsen or persist or if there are any questions or concerns that arise at home. Response to treatment: the patient's symptoms have markedly improved after treatment. 16:11 Scoring Tools HEART Score: History: Slightly Suspicious (0) ECG: Non specific rt repolarization disturbance/ LBTB/ PM (1) Age: > 45 and < 65 years (1) Risk Factors: 1 or 2 Risk factors (1) Troponin: < or = 1 x Normal limit (0) Total Score = 3. 04/23 13:45 Order name: Basic Metabolic Panel; Complete Time: 15:22 rt 04/23 13:45 Order name: CBC with Diff; Complete Time: 15:48 rt 04/23 13:45 Order name: LFT's; Complete Time: 15:22 rt 04/23 13:45 Order name: Magnesium; Complete Time: 15:22 rt 04/23 13:45 Order name: NT PRO-BNP; Complete Time: 15:22 rt 04/23 13:45 Order name: Troponin HS; Complete Time: 15:22 rt 04/23 15:13 Order name: CBC Smear Scan; Complete Time: 15:48 EDMS 04/23 13:45 Order name: XRAY Chest (1 view); Complete Time: 14:52 rt 04/23 13:43 Order name: EKG; Complete Time: 13:43 db 04/23 13:42 Order name: EKG - Nurse/Tech; Complete Time: 13:43 db 04/23 13:45 Order name: Cardiac monitoring; Complete Time: 13:55 rt 04/23 13:45 Order name: IV Saline Lock; Complete Time: 15:06 rt 04/23 13:45 Order name: Labs collected and sent; Complete Time: 14:14 rt 04/23 13:45 Order name: O2 Per Protocol; Complete Time: 13:55 rt 04/23 13:45 Order name: O2 Sat Monitoring; Complete Time: 13:55 rt EC:30 Rate is 66 beats/min. Rhythm is regular, Normal Sinus Rhythm with No ectopy. Right axis rt deviation noted. GA interval is normal. QRS interval is normal. QT interval is normal. No Q waves. No ST changes noted. Interpreted by me. Administered Medications: 14:02 Drug: DuoNeb Nebulize (3:1) (2.5 mg - 0.5 mg) 3 ml Nebulizer once Route: Nebulizer; db 14:25 Follow up: Response: No adverse reaction db 15:28 Drug: Ketorolac IVP 15 mg IVP once Route: IVP; Site: right forearm; db 16:06 Follow up: Response: No adverse reaction db 15:30 Drug: Ondansetron IVP 4 mg IVP once; over 2 minutes Route: IVP; Site: right forearm; db 16:04 Follow up: Response: No adverse reaction db 15:48 Drug: MethylPrednisoLONE IVP 125 mg IVP once Route: IVP; Site: right forearm; db 16:02 Follow up: Response: No adverse reaction db Disposition Summary: 04/23/24 15:44 Discharge Ordered Notes: Location: Home rt Problem: new rt Symptoms: have improved rt Condition: Stable rt Diagnosis - Breakthrough seizure rt - Acute bronchitis rt Followup: rt - With: Private Physician - When: 2 - 3 days - Reason: Discharge Instructions: - Discharge Summary Sheet rt - Acute Bronchitis, Adult rt - Seizure, Adult rt Forms: - Medication Reconciliation Form rt - Antibiotic Education rt - Prescription Opioid Use rt - Patient Portal Instructions rt - Leadership Thank You Letter rt Prescriptions: - ipratropium-albuterol 0.5 mg-3 mg(2.5 mg base)/3 mL Inhalation Solution for Nebulization - nebulize 3 milliliter INHALATION route 4 times per day as needed for wheezing; rt 90 milliliter; Refills: 0, Product Selection Permitted - Prednisone 20 mg Oral Tablet - take 2 tablets ORAL route once daily for 5 days; 10 tablet; Refills: 0, Product rt Selection Permitted Signatures: Dispatcher [employer] Arlette Frances RN RN db Gus Canela MD MD rt Corrections: (The following items were deleted from the chart) 13:46 13:46 BASIC METABOLIC PANEL+C.LAB.BRZ ordered. EDMS EDMS 13:46 13:46 CBC+H.LAB.BRZ ordered. EDMS EDMS 13:46 13:46 HEPATIC FUNCTION+C.LAB.BRZ ordered. EDMS EDMS 13:46 13:46 MAGNESIUM+C.LAB.BRZ ordered. EDMS EDMS 13:46 13:46 PROBNP+C.LAB.BRZ ordered. EDMS EDMS 13:46 13:46 Troponin High Sensitivity+C.LAB.BRZ ordered. EDMS EDMS 13:46 13:46 Chest Single View+RAD.RAD.BRZ ordered. EDMS EDMS
[2024-04-23 15:45] LABS: Anisocytosis 1+; Blood Morphology Comment NOTED (NOT SEEN); Platelet Estimate ADEQ; White Blood Cell Scan OK (OK)
[2024-04-23 15:46] LABS: Microcytosis 1+
[2024-04-23] MEDS ORDERED: METHYLPREDNISOLONE 125 MG INJ ONE (15:51)
[2024-04-23 16:31] VITALS: BP 122/82; O2SAT 98
--- NOTE | 2024-04-25 11:58 | EKG ---
Test Date: 2024-04-23 Test Time: 13:36:55 Survey Chief: DEQUAN MEASUREMENT RESULTS: Intervals: Rate: 66 MT: 140 QRSD: 90 QT: 448 QTc: 469 [place]ley: P: 65 MT: 140 QRS: 120 T: -56 INTERPRETIVE STATEMENTS: Normal sinus rhythm Right axis deviation Nonspecific T wave abnormality Prolonged QT Abnormal ECG Compared to ECG 04/02/2024 10:15:03 Sinus arrhythmia no longer present T-wave abnormality still present Electronically Signed On 04-25-24 11:53:27 CDT by Christian Crocker
== END 2024-04-23 16:09 | disposition home or self-care (01) ==
LOC: ER 13:04
DX: G40.509 Epileptic seizures related to external causes, not intractable, without status epilepticus (principal); J20.9 Acute bronchitis, unspecified; F31.9 Bipolar disorder, unspecified; F17.210 Nicotine dependence, cigarettes, uncomplicated
CPT/HCPCS: 93005; 85025; 80048; 36415; 83735; 80076; 84484; 83880; 71045; 96375; 96374; 99285; J7613; J7644; J2919; J2405

== ENCOUNTER 2024-05-11 15:22 | Emergency (ER) | payer OTHER ==
[2024-05-11] MEDS ORDERED: MORPHINE 4 MG/ML SYR ONE ×2 (15:40→17:23)
[2024-05-11] MEDS ORDERED: ONDANSETRON 4 MG/2 ML VIAL ONE (15:40)
--- OUTSIDE RECORDS SUMMARY | 2024-05-11 15:41 | XMS REPORT | Continuity of Care Document ---
Author Name Unknown Address [address] [place] [address] [facility] thconnect Address [address] [place] [address] Care Team Providers Care Diamond Driller Name Role Phone Alina Aneta SUAREZ Primary Care Physician PANKAJ OBREGON Attending Clinician Un available AYDEE GO Attending Clinician Unavailable MARIANELA BURGESS Attending Clinician UnavailADAM Moreno Attending Clinician Unavailable THOMAS LOZOYA Attending Clinician Nina MARIAH Quiroga Attending Clinician Unavailable GUSTAVO DELANEY Attending Clinician Unavailable CHRISSY MOHR Attending Clinician Unavailable CHRISSY MOHR Attending Clinician Unavailable Chrissy Mohr DO Attending Clinician [phone] MD GERRY Attending Clinician Unavailab le Doctor Unassigned, Olyphant Attending Clinician U chelsi ZAVALAKATJA MORALES Attending Clinician Unavailab RADHA Vargas Attending Clinician Unavailable RADHA WYATT Attending Clinician Unavailable Gerardo CAMPOS, Veronique Olivia Attending Clinician [phone] DARRICK ALTAMIRANO Attending Clinician Unavailabl itz Del Castillo REGISTERED NURSE FIRST ASSISTANT, Olena Attending Clinician [phone] Alfonso Lopez Attending Clinician [phone] Lisandra ELIZONDO, Darrick Suarez. Attending Clinician [phone] Morena CAMPOS, Jodi Gonzalez Attending Clinician Unavail able TAL BENAVIDEZ Attending Clinician Unavailable Mj Bryan DO Attending Clinician [phone] Tal Benavidez MD Attending Clinician [phone] MOJGAN SIMENTAL Attending Clinician Unav arianna Renee MD, Connor Suarez Attending Clinician + [phone] Kamille ELIZONDO, Mojgan Mueller Attending Clinician + Madeline Mckinley RN Attending Clinician Unavailab MADELINE Edwards Attending Clinician Unavailable MADELINE PIERRE Attending Clinician Unavailable Megan Rondon MD Attending Clinician [phone] Altamirano MD Attending Clinician [phone] Lorenzo Ventura MD, Ivis Attending Clinician [phone] Nola ELIZONDO, Ryder Joshi Attending Clinici an AARON LEDESMA Attending Clinician Unavailable Tracy ELIZONDO, Cris Attending Clinician [phone] EFRA BABCOCK Attending Clinician Un available MYLA LIEBERMAN Attending Clinician Unavailable JUANY GREEN Attending Clinician Unavailable CINDI, TIFFANY Attending Clinician Unavaila SIDDHARTH Kaye Attending Clinician UnavailMARGOT Dexter Attending Clinician Unavailable SARAI JULES Attending Clinician Unavaila YONATAN Juarez Attending Clinician UnaDEWARD Sneed Attending Clinician Unavailable Nir ELIZONDO, [place] Olivia Attending Clinician Unavailab monroe Obregon MD, Pankaj Attending Clinician [phone] Altamirano Edward KRAFT Attending Clinician [phone] Bud ELIZONDO, Edward Attending Clinician [phone] DEMETRIUS TOBAR Attending Clinician Unavailab QUIN Armenta Attending Clinician Unavail able Chiki REGISTERED NURSE FIRST ASSISTANT, Quin R Attending Clinician [phone] MJ BRYAN Attending Clinician Unavailable Jenifer ELIZONDO, Marianela Hamilton Attending Clinician [phone] Abbi ELIZONDO, Aydee Attending Clinician [phone] Provider, Not In System Attending Clinician Unav Dallas Allen Attending Clinician [phone] Jose ELIZONDO, Adam Attending Clinician [phone] Mercedez ELIZONDO, Harry Attending Clinician +[phone] Rocael ELIZONDO, Antwon Attending Clinician Unavailab Yue Booth MD Attending Clinician [phone] Connie Davey MD Attending Clinician [phone] Jasen ELIZONDO, Mariah Attending Clinician [phone] Valerio ELIZONDO, Thomas Reddy Attending Clinician + [phone] CONNIE DAVEY Attending Clinician UnavailAlfonso Oh Attending Clinician Unavailable RITCHIE WARREN Attending Clinician Unavailable Ritchie Warren MD Attending Clinician [phone] Rk CAMPOS, Margot Stoner Attending Clinician +[phone] PARRISH DIANE Attending Clinician Unavaila yaya Mendoza MD, Halima Hummel Attending Clinician [phone] Ning Geller MD Attending Clinician +[phone] Parrish Diane MDthia Attending Clinici an DAMI LOWRY Attending Clinician Unavailable Essence ELIZONDO, Dami Attending Clinician +[phone] Maria Teresa Nicole LVN Attending Clinician + [phone] CHANTEL BOJORQUEZ Attending Clinician CHANTEL Kelly Attending Clinician Jack Ibrahim MD, Brandyn Otoole Attending Clinician [phone] SELINA MARTINES Attending Clinician Unavailable Sapna Vargas DO Attending Clinician + [phone] Tyrel ELIZONDO, Glory Katz Attending Clinician + Selina Martines MD Attending Clinician [phone] Vaccine, Linville Dangelo Attending Clinician U chelsi Pak MD, Jose Attending Clinician [phone] JOSE PAK Attending Clinician Unavailable WILLIAMS VIRK Attending Clinician Unavaila ble Sully ERP CONSULTANT, Williams F Attending Clinician [phone] Miky Nava RN Attending Clinician Unavailab monroe Chakraborty ERP CONSULTANTFabrice Otoole Attending Clinician [phone] Deo ERP CONSULTANTLydia Attending Clinician [phone] Unknown, Attending Attending Clinician Unavailab le UNKNOWN, ATTENDING Attending Clinician Unavailab Estefania Berg Attending Clinician [phone] Yehuda Arcos MD Attending Clinician [phone] PANKAJ OBREGON Admitting Clinician Un available MARIANELA BURGESS Admitting Clinician Unavailab ADAM Cabrera Admitting Clinician Unavailable MARIAH ALDRIDGE Admitting Clinician Unavailable CHRISSY MOHR Admitting Clinician Unavailable RADHA WYATT Admitting Clinician Unavailable DARRICK ALTAMIRANO Admitting Clinician UnavailDarrick Geiger MD Admitting Clinician [phone] TAL BENAVIDEZ Admitting Clinician Unavailable Tal Benavidez MD Admitting Clinician [phone] MOJGAN SIMENTAL Admitting Clinician Unav ailable Mojgan Simental MD Admitting Clinician + CR ALTAMIRANO Admitting Clinician Unavailable CONNIE DAVEY Admitting Clinician UnavailAlfonso Oh Admitting Clinician Unavailable RITCHIE WARREN Admitting Clinician Unavailable NING GELLER Admitting Clinician Unavaila ble DAMI LOWRY Admitting Clinician Unavailable Dami Lowry MD Admitting Clinician [phone] BRANDYN IBRAHIM Admitting Clinician Unavailable Brandyn Ibrahim MD Admitting Clinician [phone] GLORY ESTEVES Admitting Clinician Unav ailable WILLIAMS VIRK Admitting Clinician Unavaila ble Payers Payer Name Policy Type Policy Number Effective Date Expirati on Date Source [facility] CYNTHIA VORA [id number] 2023 00:00:00 ISA RICARDO [id number] 2023 00:00:00 [facility] W/ CYNTHIA VELASQUEZ [id number] 2023 00:00:00 2023 00:00:00 [facility] SESAR OVIEDO COPAY FOCUS 9 [id number] 2023 00:00:00 MEDICAID PENDING PENDING 2022 00:00:00 Problems Condition Name Condition Details Condition Category Status Onset Date Resolution Date Last Treatment Date Treating Clinician Comments Source 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 systolic and diastolic congestive heart failure Disease Active 01-09 00:00: 00 [facility] Hypotensio n Hypotensio n Disease Active 01-08 00:00: 00 [facility] LV (left ventricula r) mural thrombus LV (left ventricula r) mural thrombus Disease Active 12-14 00:00: 00 [facility] Pulmonary hypertensi on Pulmonary hypertensi on Disease Active 12-14 00:00: 00 [facility] Shortness of breath Shortness of breath Disease Active -27 00:00: 00 [facility] Other chest pain Other chest pain Disease Active 5-15 00:00: 00 [facility] Depression Depression Disease Active 09-29 00:00: 00 Cynthia Erazoa raul Anxiety Anxiety Disease Active 09-29 00:00: 00 Cynthia Santoyo Externa raul CAD (coronary artery disease) CAD (coronary artery disease) Disease Active 09-29 00:00: 00 Cynthia Santoyo Externa raul COPD (chronic obstructiv e pulmonary disease) (multi HCC) COPD (chronic obstructiv e pulmonary disease) (multi HCC) Disease Active 09-29 00:00: 00 Cynthia Erazoa raul History of colon polyps History of colon polyps Disease Active 09-29 00:00: 00 Cynthia Santoyo Externa raul Marijuana use Marijuana use Disease Active 09-29 00:00: 00 Cynthia Santoyo Externa raul Seizure (multi HCC) Seizure (multi HCC) Disease Active 09-29 00:00: 00 Cynthia Santoyo Externa raul Tobacco use Tobacco use Disease Active 09-29 00:00: 00 Cynthia Santoyo Externa raul Type 2 diabetes mellitus with hyperglyce ortega, without long-term current use of insulin (multi HCC) Type 2 diabetes mellitus with hyperglyce ortega, without long-term current use of insulin (multi HCC) Disease Active 09-11 00:00: 00 Cynthia Santoyo Externa raul CHF (congestiv e heart failure) (multi HCC) CHF (congestiv e heart failure) (multi HCC) Disease Active 09-11 00:00: 00 Cynthia Santoyo Externa raul Bipolar disorder (multi HCC) Bipolar disorder (multi HCC) Disease Active 09-11 00:00: 00 Cynthia Santoyo Externa raul Seizure disorder (multi HCC) Seizure disorder (multi HCC) Disease Active 09-11 00:00: 00 Cynthia Santoyo Externa raul Prediabete s Prediabete s Disease Active 2-23 00:00: 00 Cynthia Seybold - Externa l Bilateral leg weakness Bilateral leg weakness Disease Active 2022-07 00:00: 00 [facility] Bilateral leg weakness Bilateral leg weakness Disease Active 2022-07 00:00: 00 [facility] Pneumonia Pneumonia Disease Active 2022-07 00:00: 00 [facility] Cavitary lesion of lung Cavitary lesion of lung Disease Active 2022-07 00:00: 00 [facility] Cervical disc disorder with radiculopa thy, high cervical region Cervical disc disorder with radiculopa thy, high cervical region Disease Active 2022-07 00:00: 00 [facility] Cervical myelopathy Cervical myelopathy Disease Recurre nce 2022-07 00:00: 00 [facility] Cord compressio n Cord compressio n Disease Recurre nce - 00:00: 00 [facility] Cauda equina compressio n Cauda equina compressio n Disease Active 03-30 00:00: 00 [facility] Seizure Seizure Disease Recurre nce 1-14 00:00: 00 [facility] Cardiomyop athy Cardiomyop athy Disease Active 08-01 00:00: 00 [facility] NSVT (nonsustai keisha ventricula r tachycardi a) NSVT (nonsustai keisha ventricula r tachycardi a) Disease Active 08-01 00:00: 00 [facility] Elevated brain natriureti c peptide (BNP) level Elevated brain natriureti c peptide (BNP) level Disease Active 07-31 00:00: 00 [facility] Chest pain, unspecifie d type Chest pain, unspecifie d type Disease Active 07-31 00:00: 00 [facility] Elevated brain natriureti c peptide (BNP) level Elevated brain natriureti c peptide (BNP) level Disease Active 07-31 00:00: 00 [facility] Coronary artery disease involving rampart coronary artery of rampart heart without angina pectoris Coronary artery disease involving rampart coronary artery of rampart heart without angina pectoris Disease Active 07-31 00:00: 00 [facility] Snores Snores Disease Active 07-31 00:00: 00 [facility] Cigarette smoker Cigarette smoker Disease Active 07-31 00:00: 00 [facility] Primary hypertensi on Primary hypertensi on Disease Active 07-31 00:00: 00 [facility] Other hyperlipid emia Other hyperlipid emia Disease Active 07-31 00:00: 00 [facility] Coronary artery disease involving rampart coronary artery of rampart heart without angina pectoris Coronary artery disease involving rampart coronary artery of rampart heart without angina pectoris Disease Active 07-31 00:00: 00 [facility] Chronic bilateral low back pain with bilateral sciatica Chronic bilateral low back pain with bilateral sciatica Disease Active 2021-07 0-17 00:00: 00 [facility] 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 Disease Active 04-15 00:00: 00 [facility] Neuroforam inal stenosis of cervical spine Neuroforam inal stenosis of cervical spine Disease Active 04-15 00:00: 00 [facility] Stroke-lik e symptoms Stroke-lik e symptoms Disease Active 04-13 00:00: 00 [facility] Bipolar disorder, in partial remission, most recent episode manic Bipolar disorder, in partial remission, most recent episode manic Disease Active 09-27 00:00: 00 [facility] Neuroforam inal stenosis of lumbar spine Neuroforam inal stenosis of lumbar spine Disease Active 09-27 00:00: 00 [facility] Bilateral acute otitis media, recurrence not specified, unspecifie d otitis media type Bilateral acute otitis media, recurrence not specified, unspecifie d otitis media type Disease Active 09-27 00:00: 00 [facility] Lumbar spinal stenosis Lumbar spinal stenosis Disease Active 09-27 00:00: 00 [facility] Right-side d low back pain with sciatica, sciatica laterality unspecifie d Right-side d low back pain with sciatica, sciatica laterality unspecifie d Disease Active 09-27 00:00: 00 [facility] Generalize d anxiety disorder Generalize d anxiety disorder Disease Active 09-27 00:00: 00 [facility] Agoraphobi a Agoraphobi a Disease Active 09-27 00:00: 00 [facility] Bipolar disorder, in partial remission, most recent episode manic Bipolar disorder, in partial remission, most recent episode manic Disease Active 09-27 00:00: 00 [facility] Obsessive compulsive disorder Obsessive compulsive disorder Disease Active 09-27 00:00: 00 [facility] Breast mass, left Breast mass, left Disease Active 09-17 00:00: 00 [facility] Anxiety Anxiety Disease Active 09-17 00:00: 00 [facility] Lower back pain Lower back pain Disease Active 09-17 00:00: 00 [facility] High blood pressure High blood pressure Disease Active 09-17 00:00: 00 [facility] COPD (chronic obstructiv e pulmonary disease) COPD (chronic obstructiv e pulmonary disease) Disease Active 09-17 00:00: 00 [facility] Obesity Obesity Disease Active 09-17 00:00: 00 [facility] Breast pain Breast pain Disease Resolve d 09-17 00:00: 00 2015-09-18 00:00:00 2015-09-18 13:19:09 [facility] Allergies, Adverse Reactions, Alerts Allergy Name Allergy Type Status Severity Reaction(s) Onset Date Inactive Date Treating Clinician Comments Source Fluoxeti ne Propensi ty to adverse reaction s Active 03-29 00:00: 00 [facility] Green Tea Drug Allergy Active Other (See Comments) 03-29 00:00: 00 Seizure like activity [facility] Levetira cetam Drug Allergy Active Nausea And Vomiting 2022-0 9-10 00:00: 00 Intensifi es seizure [facility] FLUOXETI NE Allergy Active 0 - 00:00: 00 [facility] GREEN TEA Allergy Active High Other 2022-0 9- 00:00: 00 [facility] LEVETIRA CETAM Allergy Active High N\\T\\V 2022-0 9- 00:00: 00 [facility] Green Tea Propensi ty to adverse reaction s Active 0 - 00:00: 00 Seizure like activity [facility] Levetira cetam Propensi ty to adverse reaction s Active Nausea And Vomiting 0 - 00:00: 00 Intensifi es seizure [facility] Levetira cetam Propensi ty to adverse reaction s Active Other 0 5- 00:00: 00 Intensifi es seizure Makes seizures worse Makes seizures worse Intensifi es seizure Cynthia Seybold - Externa l LEVETIRA CETAM DRUG INGREDI Active Other-Cmnt 0 5- 00:00: 00 [facility] Levetira cetam Propensi ty to adverse reaction s Active Other - See comments 0 5- 00:00: 00 Makes seizures worse [facility] FLUOXETI NE Allergy Active Med Rash 2022-0 1-14 00:00: 00 [facility] Fluoxeti ne Propensi ty to adverse reaction s Active Rash 2022-0 1-14 00:00: 00 [facility] Green Tea Propensi ty to adverse reaction s Active 2022-0 1-14 00:00: 00 [facility] GREEN TEA Allergy Active 2022-0 1-14 00:00: 00 [facility] Fluoxeti ne Propensi ty to adverse reaction s Active Unknown - See comments 0 - 00:00: 00 [facility] FLUOXETI NE DRUG INGREDI Active Unknown-Cmnt 0 9- 00:00: 00 [facility] Diclofen ac Propensi ty to adverse reaction s Active Anxiety 11-20 00:00: 00 Cynthia Macdonaldybold - Externa l DICLOFEN AC DRUG INGREDI Active HYPERTENSION 11-20 00:00: 00 [facility] Green Tea Propensi ty to adverse reaction s Active Anxiety 08-10 00:00: 00 Seizure like activity Seizures Seizures Seizure like activity Cynthia Macdonaldybold - Externa l GREEN TEA DRUG INGREDI Active Med Other-Cmnt 08-10 00:00: 00 [facility] Green Tea Propensi ty to adverse reaction s to drug Active Other - See comments 08-10 00:00: 00 Seizures [facility] FLUOXETI NE HCL DRUG INGREDI Active Hives 03-19 00:00: 00 [facility] Fluoxeti ne Hcl Propensi ty to adverse reaction s Active Hives 03-19 00:00: 00 [facility] Family History Family Member Diagnosis Comments Start Date Stop Date Sourc e Natural mother Alcohol abuse [facility] Natural mother Cancer [facility] Natural mother Diabetes [facility] Natural mother Heart disease [facility] Natural mother Hyperlipidemia [facility] Natural mother Kidney disease [facility] Natural mother Stroke [facility] Natural mother Alcohol abuse [facility] Natural mother Stroke [facility] Paternal uncle Diabetes [facility] Social History Social Habit Start Date Stop Date Quantity Comments Source History SDOH Alcohol Frequency [facility] History SDOH Alcohol Std Drinks [facility] History SDOH Alcohol Binge [facility] History SDOH Housing Homeless Last Year [facility] History of tobacco use Passive smoker [facility] History SDOH Social Connections Get Together [facility] History SDOH Social Connections Quaker [facility] History SDOH Social Connections Membership [facility] History SDOH Social Connections Meetings [facility] Sexual orientation [facility] Alcoholic beverage intake 2024-04-02 00:00:00 2024-04-02 00:00:00 0 /d [facility] Education - What is the highest level of school you have completed or the highest degree you have received? 2023-09-30 00:00:00 2023-09-30 00:00:00 GED or equivalent Cynthia Garcia - External History of Social function 2023-08-03 00:00:00 2023-08-03 00:00:00 [facility] Alcohol intake 2023-06-02 00:00:00 2023-06-02 00:00:00 Current drinker of alcohol (finding) [facility] Exposure to SARS-CoV-2 (event) 2023-05-18 00:00:00 2023-05-28 07:28:00 Not sure [facility] History SDOH Housing Unable to Pay - In the last 12 months, was there a time when you were not able to pay the mortgage or rent on time? 2023-05-26 00:00:00 2023-05-26 00:00:00 Yes [facility] Cigarettes smoked current (pack per day) - Reported 2023-05-26 00:00:00 2023-05-26 00:00:00 [facility] Cigarette pack-years 2023-05-26 00:00:00 2023-05-26 00:00:00 [facility] Tobacco use and exposure 2023-05-26 00:00:00 2023-05-26 00:00:00 Smokeless tobacco non-user [facility] History SDOH Housing Places Lived 2023-03-30 00:00:00 2023-03-30 00:00:00 1 [facility] Alcohol Comment 2023-03-29 00:00:00 2023-03-29 00:00:00 2x a week [facility] History SDOH Social Connections Phone 2022-08-01 00:00:00 2022-08-01 00:00:00 5 [facility] History SDOH Social Connections Living 2022-08-01 00:00:00 2022-08-01 00:00:00 5 [facility] History SDOH Physical Activity DPW 2022-08-01 00:00:00 2022-08-01 00:00:00 0 [facility] History SDOH Physical Activity MPS 2022-08-01 00:00:00 2022-08-01 00:00:00 0 [facility] History SDOH Financial 2022-08-01 00:00:00 2022-08-01 00:00:00 3 [facility] History SDOH Food Worry 2022-08-01 00:00:00 2022-08-01 00:00:00 1 [facility] History SDOH Food Scarcity 2022-08-01 00:00:00 2022-08-01 00:00:00 1 [facility] History SDOH Transport Med 2022-08-01 00:00:00 2022-08-01 00:00:00 2 [facility] History SDOH Transport Non-Med 2022-08-01 00:00:00 2022-08-01 00:00:00 2 [facility] Sex Assigned At 1970 00:00:00 1970 00:00:00 [facility] Smoking Status Start Date Stop Date Source Smokes tobacco daily 2023-11-25 00:00:00 [facility] Never smoked tobacco Cynthia Seybold - External Ex-smoker 2023-05-26 00:00:00 2023-05-26 00:00:00 [facility] Medications Ordered Medication Name Filled Medication Name [...] unable to tolerate oral medication s? Yes [facility] valproate (DEPACON) 500 mg in D5W piggyback 04-03 03:30: 00 04-03 04:49 :00 No 500mg 500 mg, IV Piggyback, ONCE NOW, 1 dose, On 04/02/24 at 2245, Administer over 30 Minutes, 100 mL [facility] divalproex (DEPAKOTE) delayed release tablet 250 mg 04-03 03:15: 00 04-03 04:07 :00 No 250mg 250 mg, Oral, ONCE NOW, 1 dose, On 04/02/24 at 2215, [facility] ondansetron (ZOFRAN (PF)) injection 4 mg 04-03 02:30: 00 04-03 04:58 :00 No 4mg 4 mg, Slow IV Push, ONCE, 1 dose, On 04/02/24 at 2130, [facility] morpHINE (4 mg/mL) injection 4 mg 04-03 02:30: 00 04-03 04:58 :00 No 4mg 4 mg, Slow IV Push, ONCE, 1 dose, On 04/02/24 at 2130, [facility] divalproex ER 500 mg 24 hr tablet 04-03 00:00: 00 Yes [id number] 1000mg Take 2 tablets by mouth every 12 (twelve) hours. [facility] KCL 20 mEq tablet 04-03 00:00: 00 04-09 04:59 :00 Yes [id number] 40meq Take 2 tablets by mouth in the morning for 5 days. [facility] LORazepam (ATIVAN) tablet 1 mg 01-12 04:00: 00 01-12 03:56 :00 No 1mg 1 mg, Oral, ONCE, 1 dose, On Thu01/12/24 at 2300, [facility] ondansetron (ZOFRAN (PF)) injection 8 mg 01-12 04:00: 00 01-12 03:55 :00 No 8mg 8 mg, Slow IV Push, ONCE, 1 dose, On Thu01/12/24 at 2300, [facility] morpHINE (4 mg/mL) injection 6 mg 626 04:00: 00 01-12 03:55 :00 No 6mg 6 mg, Slow IV Push, ONCE, 1 dose, On Thu01/12/24 at 2300, STAT [facility] mirtazapine (REMERON) tablet 15 mg 01-10 02:00: 00 Yes 15mg [facility] atorvastati n (LIPITOR) tablet 40 mg 01-10 02:00: 00 Yes 40mg [facility] MULTIVITAMI N ORAL 01-09 15:56: 06 Yes 1{tbl} Take 1 Tab by mouth daily. [facility] omega-3 fatty acids-vitam in E (FISH OIL) 1,000 mg capsule 01-09 15:56: 06 Yes 1g Take 1 g by mouth daily. [facility] loratadine (CLARITIN LIQUI-GEL) 10 mg capsule 01-09 15:56: 06 Yes Take by mouth daily. [facility] metoprolol succinate XL 50 mg 24 hr tablet 01-09 15:56: 06 01-09 00:00 :00 No 50mg Take 1 tablet by mouth in the morning. [facility] KCL (KLOR-CON M20) tablet 40 mEq 01-09 15:45: 00 01-09 17:43 :00 No 40meq 40 mEq, Oral, ONCE, 1 dose, On Thu01/10/24 at 1045, Routine [facility] ondansetron 4 mg tablet 01-09 14:46: 23 01-09 00:00 :00 No 4mg Take 1 tablet by mouth every 8 (eight) hours as needed for Nausea and Vomiting (N/V). [facility] perflutren protein-A microsphr (OPTISON) injection 3 mL 01-09 14:15: 00 01-09 14:15 :00 No [id number] 3mL 3 mL, IV Push, ONCE, 1 dose, On Thu01/10/24 at 0915, Routine [facility] tamsulosin (FLOMAX) capsule 0.4 mg 01-09 14:00: 00 Yes .4mg 0.4 mg, Oral, DAILY, First dose on 01/10/24 at 0900, Until Discontinu ed, Routine [facility] metoprolol succinate XL (TOPROL XL) tablet 12.5 mg 01-09 14:00: 00 Yes 12.5mg [facility] DULoxetine (CYMBALTA) capsule 30 mg 01-09 14:00: 00 Yes 30mg 30 mg, Oral, DAILY, First dose on 01/10/24 at 0900, Until Discontinu ed, [facility] (LANOX[facility] tablet 125 mcg 01-09 14:00: 00 Yes 125ug 125 mcg, Oral, DAILY, First dose on 01/10/24 at 0900, Until Discontinu ed [facility] aspirin chewable tablet 81 mg 01-09 14:00: 00 Yes 81mg 81 mg, Oral, DAILY, First dose on 01/10/24 at 0900, Until Discontinu ed, Routine [facility] nicotine (NICODERM) 21 mg/24 hr patch 1 Patch 01-09 13:45: 00 Yes 1{patch } 1 Patch, Topical, Administer over 24 Hours, Q24H, First dose on 01/10/24 at 0845, Until Discontinu ed, Routine [facility] gabapentin (NEURONTIN) capsule 100 mg 01-09 13:00: 00 Yes 100mg 100 mg, Oral, TID, First dose on 01/10/24 at 0800, Until Discontinu ed, Routine [facility] divalproex (DEPAKOTE) delayed release tablet 1,000 mg 01-09 13:00: 00 Yes 1000mg 1,000 mg, Oral, Q12H, First dose on 01/10/24 at 0800, Until Discontinu ed, Routine [facility] cyclobenzap rine (FLEXERIL) tablet 5 mg 01-09 13:00: 00 Yes 5mg 5 mg, Oral, TID, First dose on 01/10/24 at 0800, Until Discontinu ed, Routine [facility] apixaban (ELIQUIS) tablet 5 mg 01-09 13:00: 00 02-27 12:59 :00 No [id number] 5mg 5 mg, Oral, BID, 98 doses, First dose on 01/10/24 at 0800, Last dose on 02/27/24 at 2000, Routine, Indication s: DVT/PE [facility] FENTanyl PF (SUBLIMAZE (PF)) injection 25 mcg 01-09 03:08: 20 01-10 03:07 :20 No 25ug 25 mcg, Slow IV Push, Q4HPRN, Starting on 01/09/24 at 2208, Until 01/10/24 at 2207, Routine, Pain (scale 7-10), Pain (scale 4-6) [facility] acetaminoph en (TYLENOL) tablet 650 mg 01-09 03:08: 07 Yes 650mg 650 mg, Oral, Q6HPRN, Starting on 01/09/24 at 2208, Until Discontinu ed, Routine, Pain (scale 1-3) [facility] ondansetron (ZOFRAN (PF)) injection 4 mg 01-09 02:45: 00 01-09 01:53 :00 No 4mg 4 mg, Slow IV Push, ONCE, 1 dose, On 01/09/24 at 2145, MICHAEL [facility] ipratropium -albuteroL (DUONEB) 0.5 mg-3 mg(2.5 mg base)/3 mL nebulizer solution 3 mL 01-09 02:45: 00 01-09 02:01 :00 No 3mL 3 mL, Inhalation , ONCE, 1 dose, On 01/09/24 at 2145, Routine [facility] cefTRIAXone (ROCEPHIN) 1,000 mg in NaCl 0.9% (NS) 100 mL MINI-BAG 01-09 02:30: 00 01-09 03:10 :00 No 1000mg 1,000 mg, IV Piggyback, ONCE, 1 dose, On 01/09/24 at 2130, Administer over 30 Minutes, 100 mL, Reason for Anti-Infec tive: Documented Infection, Documented Infection Site: Respirator y, Duration of Therapy: Once (ED) [facility] famotidine (PEPCID (PF)) injection 20 mg 01-09 01:45: 00 01-09 01:53 :00 No 20mg 20 mg, Slow IV Push, ONCE, 1 dose, On 01/09/24 at 2045, MICHAEL [facility] iopamidol (ISOVUE 370-500 mL) injection 90 mL 01-09 00:45: 00 01-09 00:45 :00 No [id number] 90mL 90 mL, Intravenou s, ONCE, 1 dose, On 01/09/24 at 1945, Routine [facility] atorvastati n 40 mg tablet 01-09 00:00: 00 Yes [id number] 20mg Take 0.5 tablets by mouth at bedtime. [facility] furosemide 40 mg tablet 01-09 00:00: 00 Yes [id number] 40mg Take 1 tablet by mouth every morning and evening. [facility] ipratropium -albuteroL 0.5 mg-3 mg(2.5 mg base)/3 mL nebulizer solution 01-09 00:00: 00 Yes [id number] 3mL Inhale 3 mL every 6 (six) hours as needed for Wheezing or Shortness of Breath. [facility] predniSONE 20 mg tablet 01-09 00:00: 00 01-15 04:59 :00 No [id number] 40mg Take 2 tablets by mouth in the morning for 5 days. [facility] FENTanyl PF (SUBLIMAZE (PF)) injection 50 mcg 01-08 22:45: 00 01-08 23:10 :00 No 50ug 50 mcg, Slow IV Push, ONCE, 1 dose, On 01/09/24 at 1745, STAT [facility] ondansetron (ZOFRAN (PF)) injection 4 mg 01-08 21:30: 00 01-08 21:47 :00 No 4mg 4 mg, Slow IV Push, ONCE, 1 dose, On Thu01/09/24 at 1630, MICHAEL [facility] aspirin tablet 325 mg 01-08 21:15: 00 01-08 21:47 :00 No 325mg 325 mg, Oral, ONCE, 1 dose, On 01/09/24 at 1615, STAT [facility] spironolact one 25 mg tablet 12-15 00:00: 00 01-15 04:59 :00 No [id number] 25mg Take 1 tablet by mouth in the morning for 30 days. [facility] furosemide (LASIX) tablet 40 mg 12-14 22:00: 00 Yes 40mg 40 mg, Oral, QAM+PM, First dose (after last modificati on) on Thu12/15/23 at 1700, Until Discontinu ed, Routine [facility] spironolact one (ALDACTONE) tablet 25 mg 12-14 14:00: 00 Yes 25mg 25 mg, Oral, DAILY, First dose on Thu12/15/23 at 0900, Until Discontinu ed, Routine [facility] tamsulosin (FLOMAX) capsule 0.4 mg 12-14 14:00: 00 Yes .4mg 0.4 mg, Oral, DAILY, First dose on Thu12/15/23 at 0900, Until Discontinu ed, Routine [facility] metoprolol succinate XL (TOPROL XL) tablet 12.5 mg 12-14 14:00: 00 Yes 12.5mg 12.5 mg, Oral, DAILY, First dose on Thu12/15/23 at 0900, Until Discontinu ed, Routine [facility] lisinopriL (PRINIVIL,Z ESTRIL) tablet 2.5 mg 12-14 14:00: 00 Yes 2.5mg [facility] DULoxetine (CYMBALTA) capsule 30 mg 12-14 14:00: 00 Yes 30mg 30 mg, Oral, DAILY, First dose on Thu12/15/23 at 0900, Until Discontinu ed, Routine [facility] digoxin (LANOXIN) tablet 125 mcg 12-14 14:00: 00 Yes 125ug 125 mcg, Oral, DAILY, First dose on Thu12/15/23 at 0900, Until Discontinu ed [facility] aspirin chewable tablet 81 mg 12-14 14:00: 00 Yes 81mg 81 mg, Oral, DAILY, First dose on Thu12/15/23 at 0900, Until Discontinu ed, Routine [facility] furosemide (LASIX) injection 40 mg 12-14 14:00: 00 12-14 13:49 :00 No 40mg 40 mg, Slow IV Push, ONCE, 1 dose, On Thu12/15/23 at 0900, Routine [facility] MULTIVITAMI N ORAL 12-14 11:08: 41 Yes 1{tbl} Take 1 Tab by mouth daily. [facility] omega-3 fatty acids-vitam in E (FISH OIL) 1,000 mg capsule 12-14 11:08: 41 Yes 1g Take 1 g by mouth daily. [facility] loratadine (CLARITIN LIQUI-GEL) 10 mg capsule 12-14 11:08: 41 Yes Take by mouth daily. [facility] ondansetron 4 mg tablet 12-14 11:08: 41 Yes 4mg Take 1 tablet by mouth every 8 (eight) hours as needed for Nausea and Vomiting (N/V). [facility] methylPREDN ISolone sod succ (SOLU-MEDRO L (PF)) injection 40 mg 12-14 11:00: 00 Yes 40mg 40 mg, Intravenou s, Q6H, First dose (after last modificati on) on Thu12/15/23 at 0600, Until Discontinu ed, Routine [facility] ipratropium -albuteroL (DUONEB) 0.5 mg-3 mg(2.5 mg base)/3 mL nebulizer solution 3 mL 12-14 08:08: 34 Yes 3mL 3 mL, Inhalation , QIDPRN, Starting on Thu12/15/23 at 0308, Until Discontinu ed, Routine, Wheezing, Shortness of Breath, Bronchospa sm, Chest tightness [facility] ipratropium -albuteroL (DUONEB) 0.5 mg-3 mg(2.5 mg base)/3 mL nebulizer solution 3 mL 12-14 03:19: 38 Yes 3mL 3 mL, Inhalation , QIDPRN, Starting on Thu12/14/23 at 2219, Until Discontinu ed, Routine, Wheezing, Shortness of Breath, Bronchospa sm, Chest tightness [facility] Sliding Scale Insulin - Lispro (HumaLOG) 12-14 02:00: 00 Yes [facility] mirtazapine (REMERON) tablet 15 mg 12-14 02:00: 00 Yes 15mg 15 mg, Oral, QHS, First dose on Thu12/14/23 at 2100, Until Discontinu ed, Routine [facility] atorvastati n (LIPITOR) tablet 40 mg 12-14 02:00: 00 Yes 40mg 40 mg, Oral, QHS, First dose on Thu12/14/23 at 2100, Until Discontinu ed, Routine [facility] lacosamide (VIMPAT) tablet 100 mg 12-14 01:00: 00 Yes 100mg 100 mg, Oral, BID, First dose on Thu12/14/23 at 2000, Until Discontinu ed, Routine [facility] gabapentin (NEURONTIN) capsule 100 mg 12-14 01:00: 00 Yes 100mg 100 mg, Oral, TID, First dose on Thu12/14/23 at 2000, Until Discontinu ed, Routine [facility] divalproex (DEPAKOTE) delayed release tablet 1,000 mg 12-14 01:00: 00 Yes 1000mg 1,000 mg, Oral, Q12H, First dose on Thu12/14/23 at 2000, Until Discontinu ed, Routine [facility] cyclobenzap rine (FLEXERIL) tablet 5 mg 12-14 01:00: 00 Yes 5mg 5 mg, Oral, TID, First dose on Thu12/14/23 at 1999, Until Discontinu ed, Routine [facility] apixaban (ELIQUIS) tablet 5 mg 12-14 01:00: 00 02-28 00:59 :00 No [id number] 5mg 5 mg, Oral, BID, 152 doses, First dose on Thu12/14/23 at 1999, Last dose on Thu02/28/24 at 0800, Routine, Indication s: DVT/PE [facility] ondansetron (ZOFRAN (PF)) injection 4 mg 12-14 00:15: 00 12-13 23:26 :00 No 4mg 4 mg, Slow IV Push, ONCE, 1 dose, On Thu12/14/23 at 1915, Routine [facility] morpHINE (4 mg/mL) injection 4 mg 12-14 00:15: 00 12-13 23:27 :00 No 4mg 4 mg, Slow IV Push, ONCE, 1 dose, On Thu12/14/23 at 1915, STAT [facility] metFORMIN 500 mg tablet 12-14 00:00: 00 01-14 04:59 :00 No [id number] 500mg Take 1 tablet by mouth in the morning for 30 days. [facility] empaglifloz in (JARDIANCE) 10 mg tablet 12-14 00:00: 00 01-14 04:59 :00 No [id number] 10mg Take 1 tablet by mouth in the morning for 30 days. [facility] furosemide 40 mg tablet 12-14 00:00: 00 01-09 00:00 :00 No [id number] 60mg Take 1.5 tablets by mouth every morning and evening for 60 days. [facility] glucagon (GLUCAGEN DIAGNOSTIC KIT) injection 1 mg 12-13 23:57: 51 Yes 1mg [facility] dextrose 50 % in water (D50W) injection 25 mL 12-13 23:57: 51 Yes 25mL [facility] ondansetron (ZOFRAN (PF)) injection 4 mg 12-13 23:57: 45 Yes 4mg [facility] morpHINE (2 mg/mL) injection 2 mg 12-13 23:57: 39 12-14 23:56 :39 No 2mg 2 mg, Slow IV Push, Q4HPRN, Starting on Thu12/14/23 at 1857, Until Thu12/15/23 at 1856, Routine, Pain (scale 7-10) [facility] HYDROcodone -acetaminop hen (NORCO 5) 5-325 mg tablet 1 tablet 12-13 23:57: 36 12-15 23:56 :36 No 1{tbl} 1 tablet, Oral, Q6HPRN, Starting on Thu12/14/23 at 1857, Until Thu12/16/23 at 185, Routine, Pain (scale 4-6) [facility] acetaminoph en (TYLENOL) tablet 650 mg 12-13 23:57: 28 Yes 650mg 650 mg, Oral, Q6HPRN, Starting on Thu12/14/23 at 1857, Until Discontinu ed, Routine, Pain (scale 1-3), Temp > 38 C [facility] dicyclomine (BENTYL) tablet 20 mg 12-13 23:53: 34 Yes 20mg [facility] methylpredn isolone sod succ (SOLU-MEDRO L) injection 125 mg 12-13 23:00: 00 12-14 08:08 :57 No 125mg 125 mg, Intravenou s, Q6H, First dose on Thu12/14/23 at 1800, Until Discontinu ed, Routine [facility] ipratropium -albuteroL (DUONEB) 0.5 mg-3 mg(2.5 mg base)/3 mL nebulizer solution 3 mL 12-13 21:00: 00 Yes 3mL 3 mL, Inhalation , QID, First dose on Thu12/14/23 at 1600, Until Discontinu ed, Routine [facility] ondansetron (ZOFRAN (PF)) injection 4 mg 12-13 20:45: 00 12-13 19:40 :00 No 4mg 4 mg, Slow IV Push, ONCE, 1 dose, On Thu12/14/23 at 1545, Routine [facility] morpHINE (4 mg/mL) injection 4 mg 12-13 20:45: 00 12-13 19:41 :00 No 4mg 4 mg, Slow IV Push, ONCE, 1 dose, On Thu12/14/23 at 1545, STAT [facility] furosemide (LASIX) tablet 40 mg 12-03 14:00: 00 Yes 40mg 40 mg, Oral, DAILY, First dose (after last modificati on) on Thu12/04/23 at 0900, Until Discontinu ed, [facility] mirtazapine (REMERON) tablet 15 mg 12-03 02:00: 00 Yes 15mg [facility] metoprolol succinate XL 25 mg 24 hr tablet 12-03 00:00: 00 Yes [id number] 12.5mg Take 0.5 tablets by mouth in the morning. [facility] Potassium Bicarb-Citr ic Acid (EFFER-K) effervescen t tablet 40 mEq 12-02 21:06: 00 12-02 23:09 :00 No 40meq 40 mEq, Oral, ONCE, 1 dose, On Thu12/03/23 at 1615, Routine [facility] metoprolol succinate XL (TOPROL XL) tablet 12.5 mg 12-02 16:00: 00 Yes 12.5mg 12.5 mg, Oral, DAILY, First dose on Thu12/03/23 at 1100, Until Discontinu ed, Routine [facility] sennosides (SENOKOT) tablet 8.6 mg 12-02 15:00: 00 Yes 8.6mg 8.6 mg, Oral, DAILY, First dose on Thu12/03/23 at 1000, Until Discontinu ed, Routine [facility] acetaminoph en (TYLENOL) tablet 650 mg 12-02 14:47: 07 Yes 650mg 650 mg, Oral, Q6HPRN, Starting on Thu12/03/23 at 0947, Until Discontinu ed, Routine, Pain (scale 1-3) [facility] ipratropium -albuteroL (DUONEB) 0.5 mg-3 mg(2.5 mg base)/3 mL nebulizer solution 3 mL 12-02 14:45: 00 Yes 3mL 3 mL, Inhalation , QID, First dose (after last modificati on) on Thu12/03/23 at 0945, Until Discontinu ed, Routine [facility] tamsulosin (FLOMAX) capsule 0.4 mg 12-02 14:00: 00 Yes .4mg 0.4 mg, Oral, DAILY, First dose on Thu12/03/23 at 0900, Until Discontinu ed, Routine [facility] DULoxetine (CYMBALTA) capsule 30 mg 12-02 14:00: 00 Yes 30mg 30 mg, Oral, DAILY, First dose on Thu12/03/23 at 0900, Until Discontinu ed, Routine [facility] digoxin (LANOXIN) tablet 125 mcg 12-02 14:00: 00 Yes 125ug 125 mcg, Oral, DAILY, First dose on Thu12/03/23 at 0900, Until Discontinu ed [facility] aspirin chewable tablet 81 mg 12-02 14:00: 00 Yes 81mg 81 mg, Oral, DAILY, First dose on Thu12/03/23 at 0900, Until Discontinu ed, Routine [facility] furosemide (LASIX) tablet 40 mg 12-02 14:00: 00 12-02 17:37 :33 No 40mg 40 mg, Oral, QAM+PM, First dose on Thu12/03/23 at 0900, Until Discontinu ed, Routine [facility] lacosamide (VIMPAT) tablet 100 mg 12-02 13:30: 00 Yes 100mg 100 mg, Oral, BID, First dose on Thu12/03/23 at 0830, Until Discontinu ed, Routine [facility] magnesium oxide (MAG-OX 400) tablet 400 mg 12-02 13:26: 00 12-02 14:24 :00 No 400mg 400 mg, Oral, ONCE, 1 dose, On Thu12/03/23 at 0830, Routine [facility] Potassium Bicarb-Citr ic Acid (EFFER-K) effervescen t tablet 40 mEq 12-02 13:19: 00 12-02 14:24 :00 No 40meq 40 mEq, Oral, ONCE, 1 dose, On Thu12/03/23 at 0830, Routine [facility] Sliding Scale Insulin - Lispro (HumaLOG) 12-02 13:00: 00 Yes Subcutaneo us, TID MEALS+HS, First dose on Thu12/03/23 at 0800, Until Discontinu ed, Routine [facility] gabapentin (NEURONTIN) capsule 100 mg 12-02 13:00: 00 Yes 100mg 100 mg, Oral, TID, First dose on Thu12/03/23 at 0800, Until Discontinu ed, [facility] divalproex ER (DEPAKOTE ER) 24 hr tablet 1,000 mg 12-02 13:00: 00 Yes 1000mg 1,000 mg, Oral, Q12H, First dose on Thu12/03/23 at 0800, Until Discontinu ed, Routine [facility] cyclobenzap rine (FLEXERIL) tablet 5 mg 12-02 13:00: 00 Yes 5mg 5 mg, Oral, TID, First dose on Thu12/03/23 at 0800, Until Discontinu ed, [facility]ine [facility] KCL (KLOR-CON M20) tablet 40 mEq 12-02 12:15: 00 12-02 14:24 :00 No 40meq 40 mEq, Oral, ONCE, 1 dose, On Arpita 5/16/24 at 0715, Routine [facility] KCL (KLOR-CON M20) tablet 20 mEq 12-02 04:00: 00 12-02 04:07 :00 No 20meq 20 mEq, Oral, ONCE, 1 dose, On Thu12/02/23 at 2300, Routine [facility] furosemide (LASIX) injection 40 mg 12-02 03:15: 00 12-02 02:36 :00 No 40mg 40 mg, Slow IV Push, ONCE, 1 dose, On Thu12/02/23 at 2215, Routine [facility] glucagon (GLUCAGEN DIAGNOSTIC KIT) injection 1 mg 12-02 02:54: 39 Yes 1mg 1 mg, Intramuscu lar, PRN, Starting on Thu12/02/23 at 2154, Until Discontinu ed, MICHAEL, Blood Glucose < or = 70 mg/dL and patient is NPO, unable to swallow or has mental changes. [facility] dextrose 50 % in water (D50W) injection 25 mL 12-02 02:54: 38 Yes 25mL 25 mL, Slow IV Push, PRN, Starting on Thu12/02/23 at 2154, Until Discontinu ed, MICHAEL, Blood Glucose < or = 70 mg/dL and patient is NPO, unable to swallow or has mental status changes. [facility] atorvastati n (LIPITOR) tablet 40 mg 12-02 02:00: 00 Yes 40mg 40 mg, Oral, QHS, First dose on Thu12/02/23 at 2100, Until Discontinu ed, Routine [facility] apixaban (ELIQUIS) tablet 5 mg 12-02 01:45: 00 02-28 00:59 :00 No [id number] 5mg 5 mg, Oral, BID, 176 doses, First dose on Thu12/02/23 at 2045, Last dose on Thu02/28/24 at 0800, Routine, Indication s: DVT/PE [facility] albuterol (PROVENTIL) 2.5 mg /3 mL (0.083 %) nebulizer solution 2.5 mg 12-02 01:40: 57 Yes 2.5mg [facility] ondansetron (ZOFRAN (PF)) injection 4 mg 12-02 01:02: 39 Yes 4mg 4 mg, Slow IV Push, Q6HPRN, Nausea and Vomiting (N/V), Starting on Thu12/02/23 at 2002, Doses of ondansetro n 16 mg and above need to be administer ed via IV piggyback. For Dose >=24mg ECG monitoring is advisable. [facility] lisinopriL 2.5 mg tablet 12-02 00:00: 00 Yes [id number] 2.5mg Take 1 tablet by mouth in the morning. [facility] acetaminoph en (OFIRMEV) IV piggyback 1,000 mg 12-01 22:15: 00 12-01 21:51 :00 No 1000mg 1,000 mg, IV Piggyback, at 400 mL/hr Administer over 15 Minutes, ONCE, 1 dose, On Thu12/02/23 at 1715, Routine, Is the patient strict NPO and unable to tolerate oral medication s? Yes [facility] iopamidol (ISOVUE 370-500 mL) injection 85 mL 12-01 19:15: 00 12-01 19:33 :00 No [id number] 85mL 85 mL, Intravenou s, ONCE, 1 dose, On Thu12/02/23 at 1415, Routine [facility] FENTanyl PF (SUBLIMAZE (PF)) injection 25 mcg 12-01 18:30: 00 12-01 19:38 :00 No 25ug 25 mcg, Slow IV Push, ONCE, 1 dose, On Thu12/02/23 at 1330, STAT [facility] NaCl 0.9% (NS) bolus infusion 1,000 mL 12-01 18:15: 00 12-01 21:00 :00 No 1000mL at 999 mL/hr, 1,000 mL, IV Infusion, ONCE, 1 dose, On Thu12/02/23 at 1315, STAT [facility] DULoxetine 30 mg capsule 11-28 00:00: 00 Yes [id number] 30mg Take 1 capsule by mouth in the morning. [facility] digoxin 125 mcg tablet 11-28 00:00: 00 Yes [id number] .125mg Take 1 tablet by mouth in the morning. [facility] tamsulosin 0.4 mg 24 hr capsule 11-28 00:00: 00 02-27 04:59 :00 No [id number] .4mg Take 1 capsule by mouth in the morning for 90 days. [facility] metoprolol succinate XL 50 mg 24 hr tablet 11-28 00:00: 00 12-02 00:00 :00 No [id number] 50mg Take 1 tablet by mouth in the morning. [facility] lisinopriL 5 mg tablet 11-28 00:00: 00 12-02 00:00 :00 No [id number] 5mg Take 1 tablet by mouth in the morning. [facility] spironolact one 25 mg tablet 11-28 00:00: 00 12-02 00:00 :00 No [id number] 50mg Take 2 tablets by mouth in the morning. [facility] metoprolol succinate XL (TOPROL XL) tablet 50 mg 11-27 14:00: 00 Yes 50mg 50 mg, Oral, DAILY, First dose (after last modificati on) on 11/28/23 at 0900, Until Discontinu ed, Routine [facility] KCL (KLOR-CON M20) tablet 40 mEq 11-27 12:30: 00 11-27 13:39 :00 No 40meq 40 mEq, Oral, ONCE, 1 dose, On 11/28/23 at 0730, Routine [facility] potassium chloride in water (KCL) 20 mEq/100 mL RTU IVPB 20 mEq 11-27 11:00: 00 11-27 13:40 :00 No 20meq 20 mEq, IV Piggyback, ONCE, 1 dose, On 11/28/23 at 0600, 100 mL [facility] clonazePAM (KLONOPIN) tablet 0.5 mg 11-27 02:45: 00 Yes .5mg 0.5 mg, Oral, QHS, First dose on Thu11/27/23 at 2145, Until Discontinu ed, Routine [facility] lacosamide (VIMPAT) tablet 100 mg 11-27 01:00: 00 Yes 100mg 100 mg, Oral, BID, First dose (after last modificati on) on Thu11/27/23 at 2000, Until Discontinu ed, Routine [facility] gabapentin 100 mg capsule 11-27 00:00: 00 Yes [id number] 100mg Take 1 capsule by mouth in the morning and 1 capsule at noon and 1 capsule in the evening. [facility] divalproex ER 500 mg 24 hr tablet 11-27 00:00: 00 04-03 00:00 :00 No [id number] 1000mg Take 2 tablets by mouth every 12 (twelve) hours. [facility] apixaban 5 mg tablet 11-27 00:00: 00 03-01 04:59 :00 No [id number] Take 2 tablets by mouth 2 (two) times daily for 3 days, THEN 1 tablet 2 (two) times daily for 90 days. Indication s: history of deep vein thrombosis [facility] furosemide 40 mg tablet 11-27 00:00: 00 12-14 00:00 :00 No [id number] 40mg Take 1 tablet by mouth every morning and evening. [facility] lacosamide (VIMPAT) 200 mg in NaCl 0.9% (NS) 50 mL piggyback 11-26 18:45: 00 11-26 23:04 :00 No 200mg 200 mg, IV Piggyback, ONCE, 1 dose, On Thu11/27/23 at 1345, Administer over 30 Minutes, 50 mL [facility] furosemide (LASIX) tablet 40 mg 11-26 14:00: 00 Yes 40mg 40 mg, Oral, QAM+PM, First dose on Thu11/27/23 at 0900, Until Discontinu ed, Routine [facility] divalproex ER (DEPAKOTE ER) 24 hr tablet 1,000 mg 11-26 13:00: 00 Yes 1000mg 1,000 mg, Oral, Q12H, First dose (after last modificati on) on Thu11/27/23 at 0800, Until Discontinu ed, Routine [facility] furosemide (LASIX) injection 40 mg 11-26 01:00: 00 11-26 01:57 :00 No 40mg 40 mg, Slow IV Push, BID, 1 dose, First dose (after last modificati on) on Thu11/26/23 at 2000, Routine [facility] divalproex ER (DEPAKOTE ER) 24 hr tablet 1,250 mg 11-26 01:00: 00 11-26 02:38 :40 No 1250mg 1,250 mg, Oral, Q12H, First dose (after last modificati on) on Thu11/26/23 at 2000, Until Discontinu ed, Routine [facility] cyanocobala min (DODEX) injection 1,000 mcg 11-25 18:30: 00 11-25 19:31 :00 No 1000ug 1,000 mcg, Intramuscu lar, ONCE, 1 dose, On Thu11/26/23 at 1330, Routine [facility] thiamine (VITAMIN B1) 100 mg in NaCl 0.9% (NS) piggyback 11-25 18:00: 00 11-30 13:59 :00 No 100mg IV Piggyback, DAILY, 5 doses, First dose on Thu11/26/23 at 1300, Last dose on Thu11/30/23 at 0900, 50 [facility] digoxin (LANOXIN) tablet 125 mcg 11-25 16:30: 00 Yes 125ug 125 mcg, Oral, DAILY, First dose on Thu11/26/23 at 1130, Until Discontinu ed, Routine [facility] metoprolol succinate XL (TOPROL XL) tablet 25 mg 2023-11-25 16:15: 00 11-27 13:09 :49 No 25mg 25 mg, Oral, DAILY, First dose on Thu11/26/23 at 1115, Until Discontinu ed, Routine [facility] apixaban (ELIQUIS) tablet 10 mg 11-25 01:00: 00 11-30 00:59 :00 No 10mg [...] Routine, Indication s: DVT/PE [Order 2 End] [facility] furosemide (LASIX) injection 40 mg 11-25 01:00: 00 11-25 16:08 :20 No 40mg 40 mg, Slow IV Push, BID, First dose (after last modificati on) on Thu11/25/23 at 1999, Until Discontinu ed, Routine [facility] spironolact one (ALDACTONE) tablet 12.5 mg 11-24 21:00: 00 Yes 12.5mg 12.5 mg, Oral, DAILY, First dose on Thu11/25/23 at 1600, Until Discontinu ed, Routine [facility] lisinopriL (PRINIVIL,Z ESTRIL) tablet 5 mg 2023-11-24 21:00: 00 Yes 5mg 5 mg, Oral, DAILY, First dose on Thu11/25/23 at 1600, Until Discontinu ed, Routine [facility] apixaban (ELIQUIS) tablet 5 mg 2023-0 11-24 16:30: 00 11-24 16:18 :00 No 5mg 5 mg, Oral, ONCE, 1 dose, On Thu11/25/23 at 1130, Routine, Indication s: DVT/PE [facility] apixaban (ELIQUIS) tablet 5 mg 11-24 14:00: 00 11-24 15:40 :42 No 5mg 5 mg, Oral, BID, 11 doses, First dose (after last modificati on) on Thu11/25/23 at 0900, Last dose on Thu11/30/23 at 0800, Routine, Indication s: DVT/PE [facility] divalproex ER (DEPAKOTE ER) 24 hr tablet 1,000 mg 11-24 13:00: 00 11-25 17:41 :19 No 1000mg 1,000 mg, Oral, Q12H, First dose (after last modificati on) on Thu11/25/23 at 0800, Until Discontinu ed, Routine [facility] ondansetron (ZOFRAN (PF)) injection 4 mg 11-24 03:45: 00 11-24 02:49 :00 No 4mg 4 mg, Slow IV Push, ONCE, On Thu11/24/23 at 2245, For 1 dose, Doses of ondansetro n 16 mg and above need to be administer ed via IV piggyback. For Dose >=24mg ECG monitoring is advisable. [facility] divalproex (DEPAKOTE) delayed release tablet 500 mg 11-24 03:45: 00 11-24 04:49 :00 No 500mg 500 mg, Oral, ONCE, 1 dose, On Thu11/24/23 at 2245, Routine [facility] hospital nitroglycer in (NITROSTAT) sublingual tablet 0.4 mg 11-24 02:36: 01 Yes .4mg 0.4 mg, Sublingual , Q5MIN PRN, Starting on Thu11/24/23 at 2136, Until Discontinu ed, Routine, Chest pain [facility] nystatin (NILSTAT) 100,000 unit/mL suspension 500,000 Units 11-24 01:15: 00 11-26 20:18 :35 No 5mL 500,000 Units (5 mL), Oral, QID, First dose on Thu11/24/23 at 2015, Until Discontinu ed, Routine [facility] acetaminoph en-codeine (TYLENOL #3) 300-30 mg tablet 1 tablet 11-24 01:07: 37 Yes 1{tbl} 1 tablet, Oral, Q6HPRN, Starting on Thu11/24/23 at 2007, Until Discontinu ed, Routine, Pain (scale 4-6) [facility] iopamidol (ISOVUE 370-500 mL) injection 100 mL 11-23 23:15: 00 11-23 22:15 :00 No [id number] 100mL 100 mL, Intravenou s, ONCE, 1 dose, On Thu11/24/23 at 1815, Routine [facility] milrinone in 5 % dextrose (PRIMACOR) 20 mg/100 mL (200 mcg/mL) infusion RTU 11-23 20:45: 00 11-24 18:50 :54 No .25ug/k g/min 0.25 mcg/kg/min ?94.5 kg (7.0875 mL/hr, rounded to 7.09 mL/hr), IV Infusion, CONTINUOUS , Starting on Thu11/24/23 at 1545, 1. Dose to be adjusted by physician or provider. 2. Notify MD if MAP < 65 mmHG. [facility] polyethylen e glycol 3350 powder 17 g 11-23 19:15: 00 Yes 17g 17 g, Oral, DAILY, First dose on Thu11/24/23 at 1415, Until Discontinu ed, [facility] ipratropium -albuteroL (DUONEB) 0.5 mg-3 mg(2.5 mg base)/3 mL nebulizer solution 3 mL 11-23 19:00: 00 Yes 3mL 3 mL, Inhalation , TID, First dose (after last modificati on) on Thu11/24/23 at 1400, Until Discontinu ed, Routine [facility] ondansetron (ZOFRAN (PF)) injection 4 mg 11-23 17:16: 00 11-23 17:24 :00 No 4mg 4 mg, Slow IV Push, ONCE, On Thu11/24/23 at 1230, For 1 dose, Doses of ondansetro n 16 mg and above need to be administer ed via IV piggyback. For Dose >=24mg ECG monitoring is advisable. [facility] apixaban (ELIQUIS) tablet 10 mg 11-23 15:45: 00 11-24 13:38 :20 No 10mg 10 mg, Oral, BID, 14 doses, First dose on Thu11/24/23 at 1045, Last dose on Thu11/30/23 at 2000, Routine, Indication s: DVT/PE [facility] milrinone in 5 % dextrose (PRIMACOR) 20 mg/100 mL (200 mcg/mL) infusion RTU 11-23 15:45: 00 11-23 20:33 :33 No .125ug/ kg/min 0.125 mcg/kg/min ?94.5 kg (3.5438 mL/hr, rounded to 3.54 mL/hr), IV Infusion, CONTINUOUS , Starting on Thu11/24/23 at 1045, 1. Dose to be adjusted by physician or provider. 2. Notify MD if MAP < 65 mmHG. [facility] HYDROcodone -acetaminop hen (NORCO 5) 5-325 mg tablet 1 tablet 11-23 14:28: 00 11-23 15:37 :00 No 1{tbl} 1 tablet, Oral, ONCE, 1 dose, On Thu11/24/23 at 0930, Routine [facility] hydrALAZINE (APRESOLINE ) tablet 10 mg 11-23 12:30: 00 11-25 13:28 :25 No 10mg 10 mg, Oral, Q8H, First dose on Thu11/24/23 at 0730, Until Discontinu ed, Routine [facility] iohexoL (OMNIPAQUE 180-20 mL) injection 11-22 20:31: 56 11-22 20:32 :10 No ONCE INTRA PROCEDURE, Starting on Thu11/23/23 at 1531, Until Thu11/23/23 at 1532, Routine, CV Intraproce dure [facility] nitroglycer in (TRIDIL) 2 mg in 10 mL D5W for Cardiac Cath 11-22 19:32: 38 11-22 20:32 :10 No ONCE INTRA PROCEDURE, Starting on Thu11/23/23 at 1432, Until Thu11/23/23 at 1532, Routine, CV Intraproce dure [facility] heparin 1,000 unit/mL injection 11-22 19:31: 28 11-22 20:32 :10 No ONCE INTRA PROCEDURE, Starting on Thu11/23/23 at 1431, Until Thu11/23/23 at 1532, Routine, CV Intraproce dure [facility] midazolam (VERSED) injection 11-22 19:24: 54 11-22 20:32 :10 No ONCE INTRA PROCEDURE, Starting on Thu11/23/23 at 1424, Until Thu11/23/23 at 1532, Routine, CV Intraproce dure [facility] FENTanyl PF (SUBLIMAZE (PF)) injection 11-22 19:21: 00 11-22 20:32 :10 No ONCE INTRA PROCEDURE, Starting on Thu11/23/23 at 1421, Until Thu11/23/23 at 1532, Routine, CV Intraproce dure [facility] lidocaine 1% (PF) (XYLOCAINE) injection 11-22 19:20: 00 11-22 20:32 :10 No ONCE INTRA PROCEDURE, Starting on Thu11/23/23 at 1420, Until Thu11/23/23 at 1532, Routine, CV Intraproce dure [facility] furosemide 20 mg tablet 11-22 15:47: 27 11-27 00:00 :00 No 20mg Take 1 tablet by mouth every morning and evening. [facility] milrinone in 5 % dextrose (PRIMACOR) 20 mg/100 mL (200 mcg/mL) infusion RTU 11-22 15:45: 00 11-23 15:32 :54 No .25ug/k g/min 0.25 mcg/kg/min ?94.5 kg (7.0875 mL/hr, rounded to 7.09 mL/hr), IV Infusion, CONTINUOUS , Starting on Thu11/23/23 at 1045, 1. Dose to be adjusted by physician or provider. 2. Notify MD if MAP < 65 mmHG. [facility] DULoxetine (CYMBALTA) capsule 30 mg 11-22 14:00: 00 11-27 00:00 :00 No 30mg 30 mg, Oral, DAILY, First dose on Thu11/23/23 at 0900, Until Discontinu ed, Routine [facility] magnesium oxide (MAG-OX 400) tablet 400 mg 11-22 13:45: 00 11-22 14:00 :00 No 400mg 400 mg, Oral, ONCE, 1 dose, On Thu11/23/23 at 0845, Routine [facility] hydrOXYzine (ATARAX) tablet 50 mg 11-22 13:42: 15 Yes 50mg 50 mg, Oral, Q8HPRN, Starting on Thu11/23/23 at 0842, Until Discontinu ed, Routine, Anxiety [facility] acute [facility] KCL (KLOR-CON M20) tablet 40 mEq 11-22 10:45: 00 11-22 10:20 :00 No 40meq 40 mEq, Oral, ONCE, 1 dose, On Thu11/23/23 at 0545, Routine [facility] mirtazapine (REMERON) tablet 15 mg 11-22 02:00: 00 Yes 15mg 15 mg, Oral, QHS, First dose on Thu11/22/23 at 2100, Until Discontinu ed, Routine [facility] atorvastati n (LIPITOR) tablet 40 mg 11-22 02:00: 00 11-25 16:05 :43 No 40mg 40 mg, Oral, QHS, First dose on 11/22/23 at 2100, Until Discontinu ed, Routine [facility] divalproex (DEPAKOTE) delayed release tablet 500 mg 11-22 01:00: 00 11-23 12:27 :34 No 500mg 500 mg, Oral, BID, First dose on 11/22/23 at 2000, Until Discontinu ed, Routine [facility] milrinone in 5 % dextrose (PRIMACOR) 20 mg/100 mL (200 mcg/mL) infusion RTU 11-21 19:30: 00 11-22 15:38 :58 No .125ug/ kg/min 0.125 mcg/kg/min ?94.5 kg (3.5438 mL/hr, rounded to 3.54 mL/hr), IV Infusion, CONTINUOUS , Starting on Thu11/22/23 at 1430, 1. Dose to be adjusted by physician or provider. 2. Notify MD if MAP < 65 mmHG. [facility] diazePAM (VALIUM) injection 2 mg 11-21 19:28: 00 11-21 20:15 :00 No 2mg 2 mg, Intravenou s, ONCE, 1 dose, On 11/22/23 at 1430, Routine [facility] gabapentin (NEURONTIN) capsule 100 mg 11-21 19:00: 00 Yes 100mg 100 mg, Oral, TID, First dose on Thu11/22/23 at 1400, Until Discontinu ed, Routine [facility] furosemide (LASIX) injection 40 mg 11-21 19:00: 00 11-24 18:54 :28 No 40mg 40 mg, Slow IV Push, TID, First dose on Thu11/22/23 at 1400, Until Discontinu ed, Routine [facility] ondansetron (ZOFRAN-ODT ) disintegrat ing tablet 4 mg 11-21 18:45: 00 11-21 18:25 :00 No 4mg 4 mg, Oral, ONCE, 1 dose, On Thu11/22/23 at 1345, [facility] perflutren lipid microsphere s (DEFINITY) injection 2 mL 11-21 16:45: 00 11-21 16:45 :00 No [id number] 2mL 2 mL, IV Push, ONCE, 1 dose, On 11/22/23 at 1145, Routine [facility] furosemide (LASIX) injection 40 mg 11-21 14:15: 00 11-21 18:23 :20 No 40mg 40 mg, Slow IV Push, BID, 2 doses, First dose on 11/22/23 at 0915, Last dose on 11/22/23 at 2000, Routine [facility] losartan (COZAAR) tablet 25 mg 11-21 14:15: 00 11-21 20:14 :04 No 25mg 25 mg, Oral, DAILY, First dose on 11/22/23 at 0915, Until Discontinu ed, Routine [facility] tamsulosin (FLOMAX) capsule 0.4 mg 11-21 14:00: 00 Yes .4mg 0.4 mg, Oral, DAILY, First dose on 11/22/23 at 0900, Until Discontinu ed, Routine [facility] pantoprazol e (PROTONIX) EC tablet 40 mg 11-21 14:00: 00 Yes 40mg 40 mg, Oral, DAILY, First dose on 11/22/23 at 0900, Until Discontinu ed, Routine [facility] aspirin chewable tablet 81 mg 11-21 14:00: 00 Yes 81mg 81 mg, Oral, DAILY, First dose on 11/22/23 at 0900, Until Discontinu ed, Routine [facility] predniSONE (DELTASONE) tablet 40 mg 11-21 14:00: 00 11-25 13:14 :00 No 40mg 40 mg, Oral, DAILY, 5 doses, First dose on 11/22/23 at 0900, Last dose on Arpita 11/26/23 at 0900, Routine [facility] iopamidol (ISOVUE 370-500 mL) injection 80 mL 11-21 14:00: 00 11-21 14:00 :00 No [id number] 80mL 80 mL, Intravenou s, ONCE, 1 dose, On 11/22/23 at 0900, Routine [facility] Sliding Scale Insulin - Lispro (HumaLOG) 11-21 13:00: 00 Yes Subcutaneo us, TID MEALS+HS, First dose on 11/22/23 at 0800, Until Discontinu ed, Routine [facility] divalproex ER (DEPAKOTE ER) 24 hr tablet 500 mg 11-21 13:00: 00 11-24 02:43 :24 No 500mg 500 mg, Oral, Q12H, First dose on Thu11/22/23 at 0800, Until Discontinu ed, Routine [facility] ipratropium -albuteroL (DUONEB) 0.5 mg-3 mg(2.5 mg base)/3 mL nebulizer solution 3 mL 11-21 09:00: 00 11-23 15:56 :58 No 3mL 3 mL, Inhalation , Q4H, First dose on 11/22/23 at 0400, Until Discontinu ed, Routine [facility] furosemide (LASIX) injection 40 mg 11-21 07:45: 00 11-21 07:15 :00 No 40mg 40 mg, Slow IV Push, ONCE, 1 dose, On Thu11/22/23 at 0245, Routine [facility] sodium chloride 7% (HYPER-IRVIN) nebulizer solution 4 mL 11-21 07:00: 00 11-23 14:32 :09 No 4mL 4 mL, Inhalation , DAILY, First dose on Thu11/22/23 at 0200, Until Discontinu ed, Routine [facility] morpHINE (2 mg/mL) injection 2 mg 11-21 06:52: 11 Yes 2mg 2 mg, Slow IV Push, Q4HPRN, Starting on 11/22/23 at 0152, Until Discontinu ed, Routine, Pain (scale 7-10) [facility] heparin 25,000 Units/250 mL (Premixed Bag) [...] ant therapy. Range, Dosing and Testing: FOR [facility], [facility], AND [facility] ONLY - aPTT < 35: Bolus 5000 [...] INITIAL BOLUS OR INITIAL INFUSION RATE. [facility] heparin (1,000 unit/mL, 10 mL vial) for Rebolusing 11-21 06:43: 39 11-23 15:32 :54 No 3000U FOR REBOLUSING , Starting on Thu11/22/23 at 0143, Until 11/24/23 at 1032, Routine, Dosing based on aPPT testing parameters (refer to continuous heparin drip order). [facility] glucagon (GLUCAGEN DIAGNOSTIC KIT) injection 1 mg 11-21 06:36: 57 Yes 1mg [facility] dextrose 50 % in water (D50W) injection 25 mL 11-21 06:36: 57 Yes 25mL [facility] acetaminoph en (TYLENOL) tablet 650 mg 11-21 06:36: 44 Yes 650mg 650 mg, Oral, Q6HPRN, Starting on Thu11/22/23 at 0136, Until Discontinu ed, Routine, Pain (scale 1-3) [facility] ondansetron (ZOFRAN (PF)) injection 4 mg 11-21 04:45: 00 11-21 03:46 :00 No 4mg 4 mg, Slow IV Push, ONCE, 1 dose, On 11/21/23 at 2345, [facility] acetaminoph en (TYLENOL) tablet 975 mg 11-21 04:45: 00 11-21 03:44 :00 No 975mg 975 mg, Oral, ONCE, 1 dose, On 11/21/23 at 2345, [facility] HEPARIN SODIUM (PORCINE) 1,000 UNIT/ML BOLUS ACS ORDER SET 11-21 04:15: 00 11-21 04:33 :00 No 4000U 4,000 Units, IV Push, ONCE, 1 dose, On 11/21/23 at 2315, [facility] morpHINE (4 mg/mL) injection 4 mg 11-21 04:15: 00 11-21 04:27 :00 No 4mg 4 mg, Slow IV Push, ONCE, 1 dose, On 11/21/23 at 2315, [facility] methylpredn isolone sod succ (SOLU-MEDRO L) injection 125 mg 11-21 04:15: 00 11-21 03:24 :00 No 125mg 125 mg, Slow IV Push, ONCE NOW, 1 dose, On 11/21/23 at 2315, [facility] heparin 25,000 Units/250 mL (Premixed Bag) [...] ant therapy. Range, Dosing and Testing: FOR [facility], [facility], AND [facility] ONLY - aPTT < 35: [...] once therapeuti c levels are reached. FOR [facility] ONLY - aPTT < 40: Bolus [...] INITIAL BOLUS OR INITIAL INFUSION RATE. [facility] ipratropium -albuteroL (DUONEB) 0.5 mg-3 mg(2.5 mg base)/3 mL nebulizer solution 3 mL 11-21 04:00: 00 11-21 02:51 :00 No 3mL 3 mL, Inhalation , ONCE, 1 dose, On 11/21/23 at 2300, MIC[facility] ipratropium -albuteroL (DUONEB) 0.5 mg-3 mg(2.5 mg base)/3 mL nebulizer solution 3 mL 11-21 03:30: 00 11-21 02:37 :00 No 3mL 3 mL, Inhalation , ONCE, 1 dose, On 11/21/23 at 2230, [facility] NaCl 0.9% (NS) bolus infusion 500 mL 11-21 03:15: 00 11-21 04:14 :00 No 500mL at 999 mL/hr, 500 mL, IV Infusion, ONCE, 1 dose, On 11/21/23 at 2215, STAT [facility] mirtazapine 15 mg tablet 09-30 00:00: 00 Yes 15mg Take 1 tablet by mouth at bedtime. [facility] Metformin HCl 500 MG oral Tablet 09-29 14:28: 11 Yes 500mg Take 1 tablet (500 mg total) by mouth daily (with breakfast) . [facility] Ibuprofen (MOTRIN) 200 MG oral Tablet 09-29 14:27: 32 09-29 00:00 :00 No 200mg Q.[id number] 3D Take 1 tablet (200 mg total) by mouth every 8 hours as needed for pain. [facility] Fluticasone -Umeclidin- Vilant (Trelegy Ellipta) 100-62.5-25 MCG/ACT inhalation AEROSOL POWDER, BREATH ACTIVATED 09-29 00:00: 00 Yes [id number] 1{puff} Inhale 1 puff into the lungs daily. [facility] Carvedilol 12.5 MG oral Tablet 09-29 00:00: 00 Yes [id number] 12.5mg Take 1 tablet (12.5 mg total) by mouth in the morning and 1 tablet (12.5 mg total) in the evening. Take with meals. [facility] Duloxetine HCl [address] Particles 09-29 00:00: 00 Yes [id number] 20mg Take 1 capsule (20 mg total) by mouth daily. [facility] Acetaminoph en-Codeine (TYLENOL/CO DEINE #3) 300-30 MG oral Tablet 09-29 00:00: 00 Yes [id number] 1{tbl} Q.25D Take 1 tablet by mouth every 6 hours as needed for pain. [facility] Clonazepam 1 MG oral Tablet 09-29 00:00: 00 Yes [id number] 1mg QD Take 1 tablet (1 mg total) by mouth nightly as needed for anxiety. [facility] spironolact one 25 mg tablet 09-29 00:00: 00 11-27 00:00 :00 No 25mg Take 1 tablet by mouth in the morning and 1 tablet in the evening. [facility] metFORMIN 500 mg tablet 09-28 00:00: 00 12-14 00:00 :00 No 500mg Take 1 tablet by mouth in the morning. [facility] Carvedilol 12.5 MG oral Tablet 09-28 00:00: [...] evening. Take with meals. [facility] gonzalez Arformotero l Tartrate 15 MCG/2ML inhalation Inhalant Solution 09-21 [...] MG oral Tablet 09-11 00:00: 00 Yes [id number] 15mg QD Take 1 tablet (15 mg total) by mouth nightly as needed. [facility] Acetaminoph en-Codeine (TYLENOL/CO DEINE #3) 300-30 MG oral Tablet 09-11 00:00: 00 09-29 00:00 :00 No [id number] 1{tbl} Q.25D Take 1 tablet by mouth every 6 hours as needed for pain. [facility] DULoxetine (CYMBALTA) 60 MG capsule 09-09 00:00: 00 10-08 23:59 :00 No 60mg QD Take 1 capsule (60 mg total) by mouth daily for 30 days. [facility] varenicline (CHANTIX) 1 mg tablet 09-08 10:51: 03 Yes 1mg Q.5D Take 1 tablet (1 mg total) by mouth 2 (two) times daily Give with meals and with a full glass of water.. [facility] atorvastati n (LIPITOR) 20 MG tablet 09-08 10:51: 03 Yes 20mg QD Take 1 tablet (20 mg total) by mouth daily. [facility] Cyanocobala min (Vitamin B-12) 1000 MCG oral Tablet 09-08 00:00: 00 10-08 04:59 :00 No 1000ug Take 1 tablet (1,000 mcg total) by mouth daily. [facility] gonz[facility] lidocaine (LIDODERM) 4 % patch 09-08 00:00: 00 10-07 23:59 :00 No 3{patch } Q24H Place 3 patches onto the skin daily for 30 days. [facility] metoprolol succinate (TOPROL-XL) 25 MG 24 hr tablet 09-07 16:47: 05 09-07 00:00 :00 No 25mg QD Take 1 tablet (25 mg total) by mouth daily. [facility] albuterol HFA (VENTOLIN HFA) 90 mcg/actuati on inhaler 09-07 16:47: 05 09-07 00:00 :00 No 1{puff} Inhale 1 puff by mouth via inhaler every 6 (six) hours as needed for Wheezing. [facility] fluticasone -umeclidin- vilanter (Trelegy Ellipta) 200-62.5-25 mcg DsDv 09-07 16:47: 05 09-07 00:00 :00 No QD Inhale by mouth via inhaler daily. [facility] Albuterol HFA 108 (90 Base) [...] (FLOMAX) 0.4 mg Cap 24 hr capsule 2- 00:00: 00 10-06 23:59 :00 No .4mg QD Take 1 capsule (0.4 mg total) by mouth daily for 30 days. [facility] polyethylen e glycol (GLYCOLAX) 17 gram packet - 00:00: 00 10-06 23:59 :00 No 17g Q.5D Take 17 g by mouth 2 (two) times daily for 30 days. [facility] gabapentin (NEURONTIN) 400 MG capsule - 00:00: 00 10-06 23:59 :00 No 400mg Q.[id number] 3D Take 1 capsule (400 mg total) by mouth 3 (three) times daily for 30 days. [facility] furosemide (LASIX) 20 MG tablet - 00:00: 00 10-06 23:59 :00 No 20mg QD Take 1 tablet (20 mg total) by mouth daily for 30 days. [facility] fluticasone -umeclidin- vilanter (Trelegy Ellipta) 200-62.5-25 mcg DsDv - 00:00: 00 10-06 23:59 :00 No 1{inhal ation} QD Inhale 1 Inhalation by mouth via inhaler daily for 30 days. [facility] metoprolol succinate (TOPROL-XL) 25 MG 24 hr tablet - 00:00: 00 10-06 23:59 :00 No 25mg QD Take 1 tablet (25 mg total) by mouth daily for 30 days. [facility] lacosamide (VIMPAT) 100 mg in NaCl 0.9% (NS) 50 mL piggyback 08-12 21:15: 00 08-12 21:23 :00 No 100mg 100 mg, IV Piggyback, ONCE, 1 dose, On Thu08/12/23 at 1515, Administer over 30 Minutes, 50 mL
Facu lty member approving Restricted medication : MJ BRYAN [facility] Dicyclomine HCl 20 MG oral [...] by mouth daily for 5 days. [facility] varenicline (CHANTIX) 1 mg tablet 2022-07 19:45: 32 Yes 1mg Q.5D Take 1 tablet (1 mg total) by mouth 2 (two) times daily Give with meals and with a full glass of water.. [facility] atorvastati n (LIPITOR) 20 MG tablet 2022-07 19:45: 32 Yes 20mg QD Take 1 tablet (20 mg total) by mouth daily. [facility] metoprolol succinate (TOPROL-XL) 25 MG 24 hr tablet 2022-07 19:45: 32 09-07 00:00 :00 No 25mg QD Take 1 tablet (25 mg total) by mouth daily. [facility] albuterol HFA (VENTOLIN HFA) 90 mcg/actuati on inhaler 2022-07 19:45: 32 09-07 00:00 :00 No 1{puff} Inhale 1 puff by mouth via inhaler every 6 (six) hours as needed for Wheezing. [facility] fluticasone -umeclidin- vilanter (Trelegy Ellipta) 200-62.5-25 mcg DsDv 2022-07 19:45: 32 09-07 00:00 :00 No QD Inhale by mouth via inhaler daily. [facility] acetaminoph en-codeine (TYLENOL #3) 300-30 mg per tablet 2022-07 18:02: 00 06-16 00:00 :00 No 1{tbl} Take 1 tablet by mouth every 4 (four) hours as needed for Pain. [facility] DULoxetine (CYMBALTA) 30 MG capsule 2022-07 00:00: 00 09-08 00:00 :00 No 30mg QD Take 1 capsule (30 mg total) by mouth daily for 90 days. [facility] metroNIDAZO LE (FLAGYL) 500 MG tablet 2022-07 00:00: 00 07-04 23:59 :00 No 500mg Take 1 tablet (500 mg total) by mouth every 8 (eight) hours for 18 days. [facility] ciprofloxac in HCl (CIPRO) 500 MG tablet 2022-07 00:00: 00 07-04 23:59 :00 No 500mg Q.5D Take 1 tablet (500 mg total) by mouth 2 (two) times daily for 18 days. [facility] cyclobenzap rine (FLEXERIL) 10 MG tablet 2022-07 00:00: 00 06-26 23:59 :00 No 10mg Q.[id number] 3D Take 1 tablet (10 mg total) by mouth 3 (three) times daily for 10 days. [facility] oxyCODONE (OXY-IR) 10 mg tablet 2022-07 00:00: 00 06-26 23:59 :00 No 10mg Take 1 tablet (10 mg total) by mouth every 8 (eight) hours as needed for up to 10 days. Max Daily Amount: 30 mg [facility] nystatin (MYCOSTATIN ) 100,000 unit/mL suspension 2022-07 00:00: 00 06-21 23:59 :00 No [id number] Q.25D Take 5 mLs (500,000 Units total) by mouth 4 (four) times daily for 5 days. [facility] dexAMETHaso ne (DECADRON) 2 MG tablet 2022-07 00:00: 00 06-08 23:59 :00 No 1mg Take 0.5 tablets (1 mg total) by mouth 2 (two) times daily with breakfast and dinner for 2 days. [facility] metoprolol succinate (TOPROL-XL) 25 MG 24 hr tablet 2022-07 17:44: 21 Yes 25mg QD Take 1 tablet (25 mg total) by mouth daily. [facility] varenicline (CHANTIX) 1 mg tablet 2022-07 17:44: 21 Yes 1mg Q.5D Take 1 tablet (1 mg total) by mouth 2 (two) times daily Give with meals and with a full glass of water.. [facility] albuterol HFA (VENTOLIN HFA) 90 mcg/actuati on inhaler 2022-07 17:44: 21 Yes 1{puff} Inhale 1 puff by mouth via inhaler every 6 (six) hours as needed for Wheezing. [facility] fluticasone -umeclidin- vilanter (Trelegy Ellipta) 200-62.5-25 mcg DsDv 2022-07 17:44: 21 Yes QD Inhale by mouth via inhaler daily. [facility] atorvastati n (LIPITOR) 20 MG tablet 2022-07 17:44: 21 Yes 20mg QD Take 1 tablet (20 mg total) by mouth daily. [facility] acetaminoph en-codeine (TYLENOL #3) 300-30 mg per tablet 2022-07 17:44: 21 Yes 1{tbl} Take 1 tablet by mouth every 4 (four) hours as needed for Pain. [facility] Naloxone (NARCAN) 4 MG/0.1ML nasal Liquid 2022-07 00:00: 00 Yes 4mg 0.1 mL (4 mg total) as needed. Cynthia gonzalez senna (SENOKOT) 8.6 mg tablet 2022-07 00:00: 00 06-18 23:59 :00 No 17.2mg Q.5D Take 2 tablets (17.2 mg total) by mouth 2 (two) times daily for 14 days. [facility] cyclobenzap rine (FLEXERIL) 10 MG tablet 2022-07 00:00: 00 06-16 00:00 :00 No 10mg Q.[id number] 3D Take 1 tablet (10 mg total) by mouth 3 (three) times daily for 10 days. [facility] methocarbam oL (ROBAXIN) 500 MG tablet 2022-07 00:00: 00 06-16 00:00 :00 No 500mg Q.25D Take 1 tablet (500 mg total) by mouth 4 (four) times daily for 10 days. [facility] lactulose (CHRONULAC) 20 gram/30 mL solution 2022-07 00:00: 00 06-11 23:59 :00 No 20g Q.[id number] 3D Take 30 mLs (20 g total) by mouth 3 (three) times daily for 7 days. [facility] ondansetron (ZOFRAN-ODT ) 4 MG disintegrat ing tablet 2022-07 00:00: 00 06-11 23:59 :00 No 4mg Take 1 tablet (4 mg total) by mouth every 6 (six) hours as needed for up to 7 days. [facility] metoprolol succinate (TOPROL-XL) 25 MG 24 hr tablet 2022-07 15:23: 22 Yes 25mg QD Take 1 tablet (25 mg total) by mouth daily. [facility] varenicline (CHANTIX) 1 mg tablet 2022-07 15:23: 22 Yes 1mg Q.5D Take 1 tablet (1 mg total) by mouth 2 (two) times daily Give with meals and with a full glass of water.. [facility] albuterol HFA (VENTOLIN HFA) 90 mcg/actuati on inhaler 2022-07 15:23: 22 Yes 1{puff} Inhale 1 puff by mouth via inhaler every 6 (six) hours as needed for Wheezing. [facility] fluticasone -umeclidin- vilanter (Trelegy Ellipta) 200-62.5-25 mcg DsDv 2022-07 15:23: 22 Yes QD Inhale by mouth via inhaler daily. [facility] atorvastati n (LIPITOR) 20 MG tablet 2022-07 15:23: 22 Yes 20mg QD Take 1 tablet (20 mg total) by mouth daily. [facility] acetaminoph en-codeine (TYLENOL #3) 300-30 mg per tablet 2022-07 15:23: 22 Yes 1{tbl} Take 1 tablet by mouth every 4 (four) hours as needed for Pain. [facility] acetaminoph en-codeine (TYLENOL #3) 300-30 mg per tablet 2022-07 09:42: 02 Yes 1{tbl} Take 1 tablet by mouth every 4 (four) hours as needed for Pain. Max Daily Amount: 6 tablets [facility] varenicline (CHANTIX) 1 mg tablet 2022-07 09:40: 04 Yes 1mg Q.5D Take 1 tablet (1 mg total) by mouth 2 (two) times daily Give with meals and with a full glass of water.. [facility] albuterol HFA (VENTOLIN HFA) 90 mcg/actuati on inhaler 2022-07 09:40: 04 Yes 1{puff} Inhale 1 puff by mouth via inhaler every 6 (six) hours as needed for Wheezing. [facility] fluticasone -umeclidin- vilanter (Trelegy Ellipta) 200-62.5-25 mcg DsDv 2022-07 09:40: 04 Yes QD Inhale by mouth via inhaler daily. [facility] atorvastati n (LIPITOR) 20 MG tablet 2022-07 09:40: 04 Yes 20mg QD Take 1 tablet (20 mg total) by mouth daily. [facility] metoprolol succinate (TOPROL-XL) 25 MG 24 hr tablet 2022-07 09:13: 28 Yes 25mg QD Take 1 tablet (25 mg total) by mouth daily. [facility] Atorvastati n Calcium 20 MG oral Tablet 2022-07 00:00: 00 Yes 20mg Take 1 tablet (20 mg total) by mouth daily. Cynthia gonzalez metoprolol succinate XL 25 mg 24 hr tablet 2022-07 00:00: 00 11-27 00:00 :00 No 25mg Take 1 tablet by mouth every morning. [facility] Nitroglycer in 0.4 MG sublingual SL Tab [...] (20 mg total) by mouth daily. [facility] aspirin 81 MG EC tablet 04-03 00:00: 00 07-02 23:59 :00 No 81mg QD Take 1 tablet (81 mg total) by mouth daily for 90 days. [facility] divalproex (DEPAKOTE) 500 MG EC tablet 04-03 00:00: 00 07-02 23:59 :00 No 500mg Q.5D Take 1 tablet (500 mg total) by mouth 2 (two) times daily for 90 days. [facility] lisinopriL (PRINIVIL,Z ESTRIL) 5 MG tablet 04-03 00:00: 00 05-28 00:00 :00 No 5mg QD Take 1 tablet (5 mg total) by mouth daily. [facility] clonazePAM (KlonoPIN) 0.5 MG tablet 04-03 00:00: 00 05-03 23:59 :00 No .25mg Take 0.5 tablets (0.25 mg total) by mouth 2 (two) times daily as needed for Anxiety for up to 30 days. Max Daily Amount: 0.5 mg [facility] HYDROcodone -acetaminop hen (NORCO 10-325) 10-325 mg per tablet 04-03 00:00: 00 04-13 23:59 :00 No 1{tbl} Take 1 tablet by mouth every 6 (six) hours as needed for up to 10 days. Max Daily Amount: 4 tablets [facility] methocarbam oL (ROBAXIN) 500 MG tablet 04-03 00:00: 00 04-13 23:59 :00 No 500mg Q.25D Take 1 tablet (500 mg total) by mouth 4 (four) times daily for 10 days. [facility] gabapentin (NEURONTIN) 300 MG capsule 04-02 00:00: 00 04-03 00:00 :00 No 300mg [id number] 3D Take 1 capsule (300 mg total) by mouth 3 (three) times daily for 90 days. [facility] divalproex (DEPAKOTE) 500 MG EC tablet 04-02 00:00: 00 04-03 00:00 :00 No 500mg Q.5D Take 1 tablet (500 mg total) by mouth 2 (two) times daily for 90 days. [facility] clonazePAM (KlonoPIN) 0.5 MG tablet 04-02 00:00: 00 04-03 00:00 :00 No .25mg Take 0.5 tablets (0.25 mg total) by mouth 2 (two) times daily as needed for Anxiety for up to 30 days. Max Daily Amount: 0.5 mg [facility] HYDROcodone -acetaminop hen (NORCO 10-325) 10-325 mg per tablet 04-02 00:00: 00 04-03 00:00 :00 No 1{tbl} Take 1 tablet by mouth every 6 (six) hours as needed for up to 10 days. Max Daily Amount: 4 tablets [facility] methocarbam oL (ROBAXIN) 500 MG tablet 04-02 00:00: 00 04-03 00:00 :00 No 500mg Q.25D Take 1 tablet (500 mg total) by mouth 4 (four) times daily for 10 days. [facility] Metronidazo le 500 MG oral [...] morning and 1 tablet in the evening. [facility] Divalproex Sodium 500 MG oral Tablet Delayed Response 01-14 00:00: 00 Yes 250mg 250 mg. Cynthia gonzalez lacosamide (VIMPAT) 200 mg in NaCl 0.9% (NS) 50 mL piggyback 12-11 19:45: 00 12-11 19:57 :00 No 200mg 200 mg, IV Piggyback, ONCE, 1 dose, On Arpita 12/11/22 at 1445, Administer over 30 Minutes, 50 mL
Facu lty member approving Restricted medication : Alfonso ALVARADO [facility] ketorolac (TORADOL) injection 15 mg 12-11 18:15: 00 12-11 17:25 :00 No 15mg 15 mg, Slow IV Push, ONCE, 1 dose, On Arpita 12/11/22 at 1315[facility] 370-500 mL) injection 80 mL 12-11 16:30: 00 12-11 16:27 :00 No [id number] 80mL 80 mL, Intravenou s, ONCE, 1 dose, On Arpita 12/11/22 at 1130, Routine [facility] nitroglycer in (NITROL) 2 % ointment 0.5 Inch 12-11 15:30: 00 12-11 14:31 :00 No .5[in_u s] 0.5 Inch, Transderma l (Apply To Skin), ONCE, 1 dose, On Arpita 12/11/22 at 1030, [facility] 324 mg 12-11 15:30: 00 12-11 14:30 :00 No 324mg 324 mg, Oral, ONCE, 1 dose, On Arpita 12/11/22 at 1030, Routine [facility] ondansetron (ZOFRAN (PF)) injection 4 mg 12-11 15:30: 00 12-11 14:29 :00 No 4mg 4 mg, Slow IV Push, ONCE, 1 dose, On Arpita 12/11/22 at 1030, [facility] LORazepam (ATIVAN) injection 1 mg 12-11 15:00: 00 12-11 14:57 :00 No 1mg 1 mg, Slow IV Push, ONCE, 1 dose, On Arpita 12/11/22 at 1000, STAT [facility] Lacosamide (VIMPAT) 100 mg tablet 12-11 00:00: 00 Yes [id number] 100mg Take 1 tablet by mouth in the morning and 1 tablet in the evening. [facility] acetaminoph en-codeine (TYLENOL #3) 300-30 mg tablet 1 tablet 11-18 05:30: 00 11-18 05:30 :00 No 1{tbl} 1 tablet, Oral, ONCE, 1 dose, On Thu11/18/22 at 0030, [facility] methocarbam oL (ROBAXIN) tablet 1,000 mg 11-18 05:30: 00 11-18 05:30 :00 No 1000mg 1,000 mg, Oral, ONCE, 1 dose, On Thu11/18/22 at 0030, [facility] ondansetron (ZOFRAN (PF)) injection 4 mg 11-18 04:45: 00 11-18 03:38 :00 No 4mg 4 mg, Slow IV Push, ONCE, 1 dose, On Thu11/17/22 at 2345, [facility] morpHINE (4 mg/mL) injection 4 mg 11-18 03:45: 00 11-18 03:38 :00 No 4mg 4 mg, Slow IV Push, ONCE, 1 dose, On Thu11/17/22 at 2245, Routine [facility] methocarbam oL (ROBAXIN) injection 1,000 mg 11-18 00:30: 00 11-17 23:47 :00 No 1000mg 1,000 mg, Intravenou s, ONCE, 1 dose, On Thu11/17/22 at 1930, [facility] methocarbam oL 500 mg tablet 11-18 00:00: 00 12-02 00:00 :00 No [id number] 1000mg Take 2 tablets by mouth 4 (four) times daily as needed for Pain (scale 7-10). [facility] acetaminoph en-codeine 300-60 mg tablet 11-18 00:00: 00 11-26 04:59 :00 No [id number] 1{tbl} Take 1 tablet by mouth every 6 (six) hours as needed for Pain for up to 7 days. Indication s: [facility] ketorolac (TORADOL) injection 15 mg 11-18 00:00: 00 11-17 23:08 :00 No 15mg 15 mg, Slow IV Push, ONCE, 1 dose, On Thu11/17/22 at 1900, Routine [facility] morpHINE (4 mg/mL) injection 4 mg 11-17 23:45: 00 11-17 23:49 :00 No 4mg 4 mg, Slow IV Push, ONCE, 1 dose, On Thu11/17/22 at 1845, Routine [facility] ondansetron (ZOFRAN (PF)) injection 4 mg 11-17 23:15: 00 11-17 23:06 :00 No 4mg 4 mg, Slow IV Push, ONCE, 1 dose, On Thu11/17/22 at 1815, MICHAEL [facility] lisinopriL (PRINIVIL,Z ESTRIL) tablet 10 mg 08-02 15:00: 00 Yes 10mg 10 mg, Oral, DAILY, First dose on Thu08/02/22 at 0900, Until Discontinu ed, Routine [facility] predniSONE (DELTASONE) tablet 40 mg 08-02 15:00: 00 08-07 14:59 :00 No 40mg 40 mg, Oral, DAILY, 5 doses, First dose on Thu08/02/22 at 0900, Last dose on Thu08/06/22 at 0900, Routine [facility] morpHINE (2 mg/mL) injection 2 mg 08-02 03:29: 15 Yes 2mg 2 mg, Slow IV Push, Q4HPRN, Starting on Thu08/01/22 at 2129, Until Discontinu ed, Routine, Pain (scale 7-10) [facility] levETIRAcet am (KEPPRA) in NACL (ISO-OS) 1,000 mg/100 mL RTU 08-02 00:00: 00 Yes 1000mg 1,000 mg, IV Piggyback, Q12H, First dose on Thu08/01/22 at 1800, Until Discontinu ed, Administer over 15 Minutes, 100 mL [facility] MULTIVITAMI N ORAL 08-01 23:49: 34 Yes 1{tbl} Take 1 Tab by mouth daily. [facility] omega-3 fatty acids-vitam in E (FISH OIL) 1,000 mg capsule 08-01 23:49: 34 Yes 1g Take 1 g by mouth daily. [facility] loratadine (CLARITIN LIQUI-GEL) 10 mg capsule 08-01 23:49: 34 Yes Take by mouth daily. [facility] ondansetron 4 mg tablet 08-01 23:49: 34 Yes 4mg Take 1 tablet by mouth every 8 (eight) hours as needed for Nausea and Vomiting (N/V). [facility] omega-3 fatty acids-vitam in E (FISH OIL) 1,000 mg capsule 08-01 23:49: 34 Yes 1g Take 1 g by mouth daily. [facility] pantoprazol e 40 mg EC tablet 08-01 23:49: 34 11-27 00:00 :00 No 40mg Take 40 mg by mouth daily. [facility] benzonatate (TESSALON PERLES) capsule 100 mg 08-01 20:00: 00 Yes 100mg 100 mg, Oral, Q8H, First dose on Thu08/01/22 at 1400, Until Discontinu ed, Routine [facility] ipratropium -albuteroL (DUONEB) 0.5 mg-3 mg(2.5 mg base)/3 mL nebulizer solution 3 mL 08-01 18:00: 00 Yes 3mL 3 mL, Inhalation , QID, First dose on Thu08/01/22 at 1200, Until Discontinu ed, Routine [facility] ipratropium -albuteroL (DUONEB) 0.5 mg-3 mg(2.5 mg base)/3 mL nebulizer solution 3 mL 08-01 17:07: 07 Yes 3mL 3 mL, Inhalation , QIDPRN, Starting on Thu08/01/22 at 1107, Until Discontinu ed, MICHAEL, Wheezing, Shortness of Breath [facility] sulfur hexafluorid e microsphr (LUMASON) injection 5 mL 08-01 17:00: 00 08-01 17:00 :00 No [id number] 5mL 5 mL, Intravenou s, ONCE, 1 dose, On Thu08/01/22 at 1100, Routine
[employer] member approving Restricted medication : KYLEE MONTEZ [facility] pantoprazol e (PROTONIX) EC tablet 40 mg 08-01 15:00: 00 Yes 40mg 40 mg, Oral, DAILY, First dose on Thu08/01/22 at 0900, Until Discontinu ed, Routine [facility] aspirin chewable tablet 81 mg 08-01 15:00: 00 Yes 81mg 81 mg, Oral, DAILY, First dose on Thu08/01/22 at 0900, Until Discontinu ed, Routine [facility] amLODIPine (NORVASC) tablet 10 mg 08-01 15:00: 00 Yes 10mg 10 mg, Oral, DAILY, First dose on Thu08/01/22 at 0900, Until Discontinu ed, Routine [facility] levETIRAcet am (KEPPRA) tablet 500 mg 08-01 14:00: 00 08-01 23:56 :35 No 500mg 500 mg, Oral, BID, First dose on Thu08/01/22 at 0800, Until Discontinu ed, Routine [facility] carvediloL (COREG) tablet 6.25 mg 08-01 14:00: 00 08-01 17:29 :13 No 6.25mg 6.25 mg, Oral, BID MEALS, First dose on Thu08/01/22 at 0800, Until Discontinu ed, Routine [facility] levETIRAcet am (KEPPRA) in NACL (ISO-OS) 1,000 mg/100 mL RTU 08-01 06:45: 00 08-01 06:32 :00 No 1000mg 1,000 mg, IV Piggyback, ONCE, 1 dose, On Thu08/01/22 at 0045, Administer over 15 Minutes, 100 mL [facility] LORazepam (ATIVAN) injection 1 mg 08-01 05:52: 54 Yes 1mg 1 mg, Slow IV Push, Q4HPRN, Starting on Thu07/31/22 at 2352, Until Discontinu ed, Routine, Seizures, Agitation, Anxiety, ETOH / Cocaine Withdrawl [facility] foLIC acid (FOLATE) tablet 1 mg 08-01 05:45: 00 Yes 1mg 1 mg, Oral, DAILY, First dose on Thu07/31/22 at 2345, Until Discontinu ed, Routine [facility] thiamine (VITAMIN B1) tablet 100 mg 08-01 05:45: 00 Yes 100mg 100 mg, Oral, DAILY, First dose on Thu07/31/22 at 2345, Until Discontinu ed, Routine [facility] LORazepam (ATIVAN) injection 0.5 mg 08-01 05:30: 00 08-01 05:29 :00 No .5mg 0.5 mg, Slow IV Push, ONCE, 1 dose, On Thu07/31/22 at 2330, MICHAEL [facility] atorvastati n (LIPITOR) tablet 40 mg 08-01 03:00: 00 Yes 40mg 40 mg, Oral, QHS, First dose on Thu07/31/22 at 2100, Until Discontinu ed, Routine [facility] diphenhydrA MINE (BENADRYL) tablet 25 mg 08-01 00:32: 02 Yes 25mg 25 mg, Oral, Q6HPRN, Starting on Thu07/31/22 at 1832, Until Discontinu ed, Routine, Itching [facility] enoxaparin (LOVENOX) injection 40 mg 07-31 23:00: 00 Yes 40mg 40 mg, Subcutaneo us, DAILY, First dose on Thu07/31/22 at 1700, Until Discontinu ed, Routine [facility] morpHINE (2 mg/mL) injection 2 mg 07-31 23:00: 00 07-31 22:29 :00 No 2mg 2 mg, Slow IV Push, ONCE, 1 dose, On Arpita 07/31/22 at 1700, Routine [facility] HYDROcodone -acetaminop hen (NORCO) 10-325 mg tablet 1 tablet 07-31 22:01: 36 Yes 1{tbl} 1 tablet, Oral, Q6HPRN, Starting on Arpita 07/31/22 at 1601, Until Discontinu ed, Routine, Pain (scale 7-10) [facility] HYDROcodone -acetaminop hen (NORCO 5) 5-325 mg tablet 1 tablet 07-31 22:01: 34 08-02 22:00 :34 No 1{tbl} 1 tablet, Oral, Q6HPRN, Starting on Arpita 07/31/22 at 1601, Until 08/02/22 at 1600, Routine, Pain (scale 4-6) [facility] acetaminoph en (TYLENOL) tablet 650 mg 07-31 22:01: 33 Yes 650mg 650 mg, Oral, Q6HPRN, Starting on Arpita 07/31/22 at 1601, Until Discontinu ed, Routine, Pain (scale 1-3) [facility] ketorolac (TORADOL) injection 15 mg 07-31 21:45: 00 07-31 20:50 :00 No 15mg 15 mg, Slow IV Push, ONCE, 1 dose, On Arpita 07/31/22 at 1545, Routine [facility] ondansetron (ZOFRAN (PF)) injection 4 mg 07-31 21:00: 00 07-31 20:47 :00 No 4mg 4 mg, Slow IV Push, ONCE, 1 dose, On Arpita 07/31/22 at 1500, MICHAEL [facility] furosemide (LASIX) injection 40 mg 07-31 20:15: 00 Yes 40mg 40 mg, Slow IV Push, Q12H, First dose on Arpita 07/31/22 at 1415, Until Discontinu ed, Routine [facility] methylpredn isolone sod succ (SOLU-MEDRO L) injection 125 mg 07-31 19:30: 00 07-31 18:54 :00 No 125mg 125 mg, Slow IV Push, ONCE NOW, 1 dose, On Arpita 07/31/22 at 1330, MICHAEL [facility] ipratropium -albuteroL (DUONEB) 0.5 mg-3 mg(2.5 mg base)/3 mL nebulizer solution 3 mL 07-31 19:30: 00 07-31 18:48 :00 No 3mL 3 mL, Inhalation , ONCE, 1 dose, On Arpita 07/31/22 at 1330, MICHAEL [facility] pantoprazol e 40 mg EC tablet 07-31 17:15: 40 Yes 40mg Take 40 mg by mouth daily. [facility] MULTIVITAMI N ORAL 07-31 15:50: 57 Yes 1{tbl} Take 1 Tab by mouth daily. [facility] loratadine (CLARITIN LIQUI-GEL) 10 mg capsule 07-31 15:50: 57 Yes Take by mouth daily. [facility] ondansetron 4 mg tablet 07-31 15:50: 57 Yes 4mg Take 4 mg by mouth every 8 (eight) hours as needed. [facility] omega-3 fatty acids-vitam in E (FISH OIL) 1,000 mg capsule 07-31 15:21: 27 Yes 1g Take 1 g by mouth daily. [facility] TAKE ONE (1) TABLET(S) BY MOUTH THREE TIMES A DAY NEEDED. 07-28 00:00: 00 No Methylpredn isolone 4 mg tablet 2021-07 00:00: 00 05-12 04:59 :00 No [id number] 4mg Take 1 tablet through enteral tube in the morning for 1 dose. [facility] Methylpredn isolone 4 mg tablet 2021-07 00:00: 00 05-11 04:59 :00 No [id number] 4mg Take 1 tablet through enteral tube every 12 (twelve) hours for 2 doses. [facility] MULTIVITAMI N ORAL 2021-07 14:44: 48 Yes 1{tbl} Take 1 Tab by mouth daily. [facility] omega-3 fatty acids-vitam in E (FISH OIL) 1,000 mg capsule 2021-07 14:44: 48 Yes 1g Take 1 g by mouth daily. [facility] loratadine (CLARITIN LIQUI-GEL) 10 mg capsule 2021-07 14:44: 48 Yes Take by mouth daily. [facility] ondansetron (ZOFRAN) 4 mg tablet 2021-07 14:44: 48 Yes 4mg Take 4 mg by mouth every 8 (eight) hours as needed. [facility] pantoprazol e (PROTONIX) 40 mg EC tablet 2021-07 14:44: 48 Yes 40mg Take 40 mg by mouth daily. [facility] DULoxetine 30 mg capsule 2021-07 14:00: 00 Yes 30mg Take 1 capsule by mouth in the morning. [facility] divalproex (DEPAKOTE) EC tablet 1,000 mg 2021-07 13:00: 00 Yes 1000mg 1,000 mg, Oral, BID, First dose (after last modificati on) on Thu05/08/22 at 0800, Until Discontinu ed, Routine [facility] Methylpredn isolone (MEDROL) tablet 4 mg 2021-07 08:50: 10 05-09 08:59 :00 No 4mg 4 mg, Oral, Q8H TAPER, 3 doses, First dose on Thu05/08/22 at 0400, Last dose on Thu05/08/22 at 2000, Routine [facility] acetaminoph en-codeine (TYLENOL #3) 300-30 mg tablet 1 tablet 2021-07 04:07: 01 Yes 1{tbl} 1 tablet, Oral, Q4HPRN, Starting on Thu05/07/22 at 2307, Until Discontinu ed, Routine, Pain (scale 7-10) [facility] morpHINE (2 mg/mL) injection 2 mg 2021-07 03:03: 15 Yes 2mg 2 mg, Slow IV Push, Q4HPRN, Starting on Thu05/07/22 at 2203, Until Discontinu ed, Routine, Pain (scale 7-10) [facility] LORazepam (ATIVAN) tablet 1 mg 2021-07 00:02: 18 Yes 1mg 1 mg, Oral, Q6HPRN, Starting on Thu05/07/22 at 1902, Until Discontinu ed, Routine, Anxiety [facility] cyclobenzap rine 5 mg tablet 2021-07 00:00: 00 Yes [id number] 5mg Take 1 tablet by mouth in the morning and 1 tablet at noon and 1 tablet in the evening. [facility] DULoxetine (CYMBALTA) 30 mg capsule 2021-07 00:00: 00 06-08 05:59 :00 No [id number] 60mg Take 2 capsules by mouth in the morning for 30 days. [facility] divalproex (DEPAKOTE) 250 mg EC tablet 2021-07 00:00: 00 06-08 05:59 :00 No [id number] 750mg Take 3 tablets by mouth every 8 (eight) hours for 30 days. [facility] LORazepam 1 mg tablet 2021-07 00:00: 00 05-19 04:59 :00 No [id number] 1mg Take 1 tablet by mouth every 6 (six) hours as needed for Anxiety or Agitation for up to 10 days. [facility] acetaminoph en-codeine 300-30 mg tablet 2021-07 00:00: 00 05-16 04:59 :00 No [id number] 1{tbl} Take 1 tablet by mouth every 4 (four) hours as needed for Pain (scale 7-10) for up to 7 days. Indication s: acute pain [facility] Methylpredn isolone 4 mg tablet 2021-07 00:00: 00 05-10 04:59 :00 No [id number] 4mg Take 1 tablet by mouth every 8 (eight) hours for 3 doses. [facility] divalproex (DEPAKOTE) EC tablet 750 mg 2021-07 01:00: 00 05-08 09:40 :23 No 750mg 750 mg, Oral, BID, First dose on Thu05/06/22 at 2000, Until Discontinu ed, Routine [facility] levETIRAcet am (KEPPRA) tablet 1,500 mg 2021-07 13:00: 00 05-06 18:38 :22 No 1500mg 1,500 mg, Oral, BID, First dose (after last modificati on) on Thu05/06/22 at 0800, Until Discontinu ed, Routine [facility] levETIRAcet am (KEPPRA) in NACL (ISO-OS) 1,000 mg/100 mL RTU 2021-07 05:00: 00 05-06 05:46 :00 No 1000mg 1,000 mg, IV Piggyback, ONCE, 1 dose, On Thu05/06/22 at 0000, Administer over 15 Minutes, 100 mL [facility] methocarbam oL (ROBAXIN) tablet 500 mg 2021-07 02:15: 00 05-06 23:21 :42 No 500mg 500 mg, Oral, QID, First dose on Thu05/05/22 at 2115, Until Discontinu ed, Routine [facility] LORazepam (ATIVAN) tablet 2 mg 2021-07 01:30: 00 05-06 01:03 :00 No 2mg 2 mg, Oral, ONCE, 1 dose, On Thu05/05/22 at 2030, Routine [facility] levETIRAcet am (KEPPRA) tablet 1,000 mg 2021-07 01:00: 00 05-06 04:48 :06 No 1000mg 1,000 mg, Oral, BID, First dose on Thu05/05/22 at 2000, Until Discontinu ed, Routine [facility] enoxaparin (LOVENOX) injection 40 mg 2021-07 00:15: 00 Yes 40mg 40 mg, Subcutaneo us, Q24H, First dose on Thu05/05/22 at 1915, Until Discontinu ed, Routine [facility] levETIRAcet am (KEPPRA) in NACL (ISO-OS) 1,000 mg/100 mL RTU 2021-07 19:45: 00 05-05 20:05 :00 No 1000mg 1,000 mg, IV Piggyback, ONCE, 1 dose, On Thu05/05/22 at 1445, Administer over 15 Minutes, 100 mL [facility] clonazePAM (KLONOPIN) tablet 0.5 mg 2021-07 19:30: 00 Yes .5mg 0.5 mg, Oral, BID, First dose on Thu05/05/22 at 1430, Until Discontinu ed, Routine [facility] ibuprofen (IBU) tablet 600 mg 2021-07 19:30: 00 Yes 600mg 600 mg, Oral, TID MEALS, First dose on Thu05/05/22 at 1430, Until Discontinu ed, Routine [facility] gabapentin (NEURONTIN) capsule 300 mg 2021-07 19:30: 00 Yes 300mg 300 mg, Oral, TID, First dose on Thu05/05/22 at 1430, Until Discontinu ed, Routine [facility] cyclobenzap rine (FLEXERIL) tablet 5 mg 2021-07 19:30: 00 Yes 5mg 5 mg, Oral, TID, First dose on Thu05/05/22 at 1430, Until Discontinu ed, Routine [facility] acetaminoph en (TYLENOL) tablet 1,000 mg 2021-07 19:30: 00 Yes 1000mg 1,000 mg, Oral, Q8H, First dose on Thu05/05/22 at 1430, Until Discontinu ed, Routine [facility] pantoprazol e (PROTONIX) EC tablet 40 mg 2021-07 14:00: 00 Yes 40mg 40 mg, Oral, DAILY, First dose on Thu05/05/22 at 0900, Until Discontinu ed, Routine [facility] docusate (COLACE) capsule 100 mg 2021-07 14:00: 00 Yes 100mg 100 mg, Oral, DAILY, First dose on Thu05/05/22 at 0900, Until Discontinu ed, Routine [facility] HYDROcodone -acetaminop hen (NORCO) 10-325 mg tablet 1 tablet 2021-07 10:32: 02 05-05 19:18 :52 No 1{tbl} 1 tablet, Oral, Q6HPRN, Starting on Thu05/05/22 at 0532, Until Thu05/05/22 at 1418, Routine, Pain (scale 7-10) [facility] ondansetron (ZOFRAN (PF)) injection 4 mg 2021-07 06:49: 57 Yes 4mg 4 mg, Slow IV Push, Q6HPRN, Starting on Thu05/05/22 at 0149, Until Discontinu ed, Routine, Nausea and Vomiting (N/V) [facility] HYDROcodone -acetaminop hen (NORCO 5) 5-325 mg tablet 1 tablet 2021-07 06:49: 41 05-05 10:32 :14 No 1{tbl} 1 tablet, Oral, Q6HPRN, Starting on Thu05/05/22 at 0149, Until Thu05/05/22 at 0532, Routine, Pain (scale 7-10) [facility] acetaminoph en (TYLENOL) tablet 325 mg 2021-07 06:49: 39 05-05 19:18 :52 No 325mg 325 mg, Oral, Q4HPRN, Starting on Thu05/05/22 at 0149, Until Thu05/05/22 at 1418, Routine, Pain (scale 4-6) [facility] ondansetron (ZOFRAN) tablet 4 mg 2021-07 04:00: 00 05-05 03:26 :00 No 4mg 4 mg, Oral, ONCE, 1 dose, On 05/04/22 at 2300, Routine [facility] morpHINE (2 mg/mL) injection 2 mg 2021-07 04:00: 00 05-05 03:26 :00 No 2mg 2 mg, Slow IV Push, ONCE, 1 dose, On 05/04/22 at 2300, Routine [facility] aspirin 81 mg chewable tablet 04-16 00:00: 00 Yes [id number] 81mg Take 1 tablet by mouth in the morning. [facility] MULTIVITAMI N ORAL 04-15 17:39: 14 Yes 1{tbl} Take 1 Tab by mouth daily. [facility] omega-3 fatty acids-vitam in E (FISH OIL) 1,000 mg capsule 04-15 17:39: 14 Yes 1g Take 1 g by mouth daily. [facility] loratadine (CLARITIN LIQUI-GEL) 10 mg capsule 04-15 17:39: 14 Yes Take by mouth daily. [facility] ondansetron (ZOFRAN) 4 mg tablet 04-15 17:39: 14 Yes 4mg Take 4 mg by mouth every 8 (eight) hours as needed. [facility] pantoprazol e (PROTONIX) 40 mg EC tablet 04-15 17:39: 14 Yes 40mg Take 40 mg by mouth daily. [facility] lisinopril- hydrochloro thiazide 20-12.5 mg per tablet 04-15 15:58: 35 04-15 00:00 :00 No 1{tbl} Take 1 tablet by mouth daily. [facility] levetiracet am (KEPPRA ORAL) 04-15 15:58: 35 04-15 00:00 :00 No Take by mouth. [facility] acetaminoph en-codeine (TYLENOL #4) 300-60 mg tablet 1 tablet 04-15 05:39: 23 04-15 14:39 :42 No 1{tbl} 1 tablet, Oral, Q6HPRN, Starting on Thu04/15/22 at 0039, Until Thu04/15/22 at 0939, Routine, Pain (scale 4-6), Pain (scale 1-3) [facility] LORazepam (ATIVAN) tablet 2 mg 04-15 03:30: 00 04-15 10:27 :00 No 2mg 2 mg, Oral, ONCE, 1 dose, On Thu04/14/22 at 2230, Routine [facility] levETIRAcet am (KEPPRA) tablet 1,000 mg 04-15 02:45: 00 Yes 1000mg 1,000 mg, Oral, BID, First dose (after last modificati on) on Thu04/14/22 at 2145, Until Discontinu ed, Routine [facility] ketorolac (TORADOL) injection 15 mg 04-15 02:13: 00 04-15 02:22 :00 No 15mg 15 mg, Slow IV Push, ONCE, 1 dose, On Thu04/14/22 at 2115, Routine [facility] levETIRAcet am 1,000 mg tablet 04-15 00:00: 00 Yes [id number] 1000mg Take 1 tablet by mouth in the morning and 1 tablet in the evening. [facility] atorvastati n 40 mg tablet 04-15 00:00: 00 01-09 00:00 :00 No [id number] 40mg Take 1 tablet by mouth at bedtime. [facility] lidocaine 5 % (700 mg/patch) patch 04-15 00:00: 00 04-23 04:59 :00 No [id number] 1{patch } Apply 1 Patch to area(s) in the morning for 7 days. [facility] HYDROcodone -acetaminop hen 5-325 mg tablet 04-15 00:00: 00 04-21 04:59 :00 No [id number] 1{tbl} Take 1 tablet by mouth every 6 (six) hours as needed for Pain (scale 7-10) for up to 5 days. Indication s: acute pain [facility] lidocaine (LIDODERM) 5 % (700 mg/patch) patch 1 Patch 04-14 21:45: 29 Yes 1{patch } 1 Patch, Topical, Administer over 12 Hours, [id number], Starting on Thu04/14/22 at 1645, Until Discontinu ed, Routine, Localized pain [facility] aspirin chewable tablet 81 mg 04-14 21:30: 00 Yes 81mg 81 mg, Oral, DAILY, First dose on Thu04/14/22 at 1630, Until Discontinu ed, Routine [facility] acetaminoph en (TYLENOL) tablet 650 mg 04-14 21:29: 25 Yes 650mg 650 mg, Oral, Q6HPRN, Starting on Thu04/14/22 at 1629, Until Discontinu ed, Routine, Pain (scale 1-3), Temp > 38.5 C, Temp > 37.5 C [facility] HYDROcodone -acetaminop hen (NORCO) 10-325 mg tablet 1 tablet 04-14 21:29: 02 04-15 05:39 :41 No 1{tbl} 1 tablet, Oral, Q6HPRN, Starting on Thu04/14/22 at 1629, Until Thu04/15/22 at 0039, Routine, Pain (scale 7-10), Pain (scale 4-6) [facility] sulfur hexafluorid e microsphr (LUMASON) injection 5 mL 04-14 16:45: 00 04-14 16:45 :00 No [id number] 5mL 5 mL, Intravenou s, ONCE, 1 dose, On Thu04/14/22 at 1145, Routine
[employer] member approving Restricted medication : MADELINE PIERRE [facility] clopidogreL (PLAVIX) 75 mg tablet 75 mg 04-14 14:00: 00 Yes 75mg 75 mg, Oral, DAILY, First dose on Thu04/14/22 at 0900, Until Discontinu ed, Routine [facility] pantoprazol e (PROTONIX) EC tablet 40 mg 04-14 14:00: 00 Yes 40mg 40 mg, Oral, DAILY, First dose on Thu04/14/22 at 0900, Until Discontinu ed, Routine [facility] atorvastati n (LIPITOR) tablet 40 mg 04-14 02:00: 00 Yes 40mg 40 mg, Oral, QHS, First dose on Thu04/13/22 at 2100, Until Discontinu ed, Routine [facility] LORazepam (ATIVAN) tablet 1 mg 04-14 01:30: 00 04-14 01:45 :00 No 1mg 1 mg, Oral, ONCE, 1 dose, On Thu04/13/22 at 2030, Routine [facility] methocarbam oL (ROBAXIN) tablet 500 mg 04-14 01:00: 00 Yes 500mg 500 mg, Oral, QID, First dose on Thu04/13/22 at 2000, Until Discontinu ed, Routine [facility] heparin (porcine) injection 5,000 Units 04-14 01:00: 00 Yes 5000U 5,000 Units, Subcutaneo us, Q12H, First dose on Thu04/13/22 at 2000, Until Discontinu ed, Routine [facility] acetaminoph en (TYLENOL) tablet 650 mg 04-14 00:23: 25 04-14 21:29 :42 No 650mg 650 mg, Oral, Q6HPRN, Starting on Thu04/13/22 at 1923, Until Thu04/14/22 at 1629, Routine, Pain (scale 1-3), Pain (scale 4-6), Temp > 38.5 C, Temp > 37.5 C [facility] lidocaine (LIDODERM) 5 % (700 mg/patch) patch 1 Patch 04-14 00:22: 00 04-14 13:51 :00 No 1{patch } 1 Patch, Topical, Administer over 12 Hours, ONCE, 1 dose, On Thu04/13/22 at 1930, Routine [facility] FENTanyl PF (SUBLIMAZE (PF)) injection 50 mcg 04-13 20:30: 00 04-13 19:22 :00 No 50ug 50 mcg, Slow IV Push, ONCE, 1 dose, On Thu04/13/22 at 1530, Routine [facility] aspirin chewable tablet 650 mg 04-13 20:15: 00 04-13 20:15 :00 No 650mg 650 mg, Oral, ONCE, 1 dose, On Thu04/13/22 at 1515, Routine [facility] clopidogreL (PLAVIX) 300 mg tablet 300 mg 04-13 20:00: 00 04-13 19:15 :00 No 300mg 300 mg, Oral, ONCE, 1 dose, On Thu04/13/22 at 1500, Routine [facility] ondansetron (ZOFRAN (PF)) injection 4 mg 04-13 19:30: 00 04-13 19:22 :00 No 4mg 4 mg, Slow IV Push, ONCE, 1 dose, On Thu04/13/22 at 1430, MICHAEL [facility] iopamidol (ISOVUE 370-500 mL) injection 100 mL 04-13 18:31: 00 04-13 18:32 :00 No [id number] 100mL 100 mL, Intravenou s, ONCE, 1 dose, On 04/13/22 at 1345, Routine [facility] NaCl 0.9% (NS) injection 5 mL 04-13 18:14: 11 Yes 5mL 5 mL, Slow IV Push, PRN - SEE INSTRUCTIO NS, Starting on Thu04/13/22 at 1314, Until Discontinu ed, 10 mL [facility] aspirin chewable tablet 324 mg 11-24 14:00: 00 Yes 324mg 324 mg, Oral, DAILY, First dose on 11/24/21 at 0900, Until Discontinu ed, Routine [facility] metoclopram iker HCl (REGLAN) injection 10 mg 11-23 22:30: 00 11-23 21:24 :00 No 10mg 10 mg, Slow IV Push, ONCE, 1 dose, On 11/23/21 at 1730, [facility] acetaminoph en (TYLENOL) tablet 1,000 mg 11-23 22:15: 00 11-23 21:09 :00 No 1000mg 1,000 mg, Oral, ONCE, 1 dose, On 11/23/21 at 1715, [facility] ondansetron (ZOFRAN (PF)) injection 4 mg 11-23 21:45: 00 11-23 20:30 :00 No 4mg 4 mg, Slow IV Push, ONCE, 1 dose, On 11/23/21 at 1645, [facility] NaCl 0.9% (NS) bolus infusion 1,000 mL 11-23 21:30: 00 11-23 21:56 :00 No 1000mL at 999 mL/hr, 1,000 mL, IV Infusion, ONCE, 1 dose, On 11/23/21 at 1630, [facility] LORazepam (ATIVAN) injection 4 mg 11-23 21:30: 00 11-23 20:23 :00 No 4mg 4 mg, Slow IV Push, ONCE, 1 dose, On 11/23/21 at 1630, STAT [facility] levETIRAcet am (KEPPRA) in NACL (ISO-OS) 1,500 mg/100 mL RTU 11-23 21:30: 00 11-23 20:47 :00 No 1500mg 1,500 mg, IV Piggyback, ONCE, 1 dose, On 11/23/21 at 1630, Administer over 15 Minutes, 100 mL [facility] Dose Unknown -08 00:00: 00 No Dose Unknown -08 00:00: 00 No Prozac 20 mg capsule -21 00:00: 00 No 1mg Prozac 20 mg capsule 3-21 00:00: 00 No 1mg Dose Unknown 3-16 00:00: 00 No Dose Unknown 2022-0 3-16 00:00: 00 No Dose Unknown 2021-0 [...] y
Durat ion of Therapy: 7 days [facility] morpHINE injection 4 mg 03-17 01:58: 00 03-17 02:13 :00 No 4mg 4 mg, Slow IV Push, ONCE, 1 dose, 03/16/21 at 2100, STAT [facility] ondansetron (ZOFRAN (PF)) injection 4 mg 03-17 01:58: 00 03-17 02:12 :00 No 4mg 4 mg, Slow IV Push, ONCE, 1 dose, 03/16/21 at 2100, [facility] ipratropium -albuteroL (DUONEB) 0.5 mg-3 mg(2.5 mg base)/3 mL nebulizer solution 3 mL 03-17 01:57: 00 03-17 02:15 :00 No 3mL 3 mL, Inhalation , ONCE, 1 dose, 03/16/21 at 2100, [facility] NaCl 0.9% (NS) IV infusion 1,000 mL 03-17 01:57: 00 03-17 03:07 :00 No 1000mL at 999 mL/hr, Intravenou s, ONCE, 1 dose, 03/16/21 at 2100, [facility] methylpredn isolone sod succ (SOLU-MEDRO L) injection 125 mg 03-17 01:57: 00 03-17 02:11 :00 No 125mg 125 mg, Slow IV Push, ONCE, 1 dose, 03/16/21 at 2100, STAT [facility] levoFLOXaci n 500 mg tablet 03-17 00:00: 03-24 04:59 :00 No [id number] 500mg Take 1 tablet by mouth daily for 6 days. [facility] predniSONE 10 mg tablet 03-17 00:00: 00 03-22 04:59 :00 No [id number] 30mg Take 3 tablets by mouth daily for 4 days. [facility] albuterol (VENTOLIN) inhaler 4 Puff 03-15 01:45: 00 03-15 00:44 :00 No [id number] 4{puff} 4 Puff, Inhalation , ONCE, 1 dose, [facility] 03/14/21 at 2044, Routine [facility] dexamethaso ne (DECADRON) injection 10 mg 03-15 01:45: 00 03-15 00:45 :00 No [id number] 10mg 10 mg, Intramuscu lar, ONCE, 1 dose, [facility] 03/14/21 at 2044, Routine [facility] albuterol 2.5 mg /3 mL (0.083 %) nebulizer solution 03-15 00:00: 00 01-09 00:00 :00 No [id number] 2.5mg Inhale 3 mL every 4 (four) hours as needed for Wheezing or Shortness of Breath. [facility] levETIRAcet am (KEPPRA) in NACL (ISO-OS) 1,000 mg/100 mL RTU 02-19 20:15: 00 02-19 19:30 :00 No 1000mg 1,000 mg, IV Infusion, ONCE, 1 dose, e 02/19/21 at 1515, Administer over 15 Minutes, 100 mL [facility] levetiracet am (KEPPRA ORAL) 02-19 19:45: 33 Yes Take by mouth. [facility] LISINOPRIL- HYDROCHLORO THIAZIDE ORAL 02-19 19:41: 15 02-19 00:00 :00 No Take by mouth. [facility] dicyclomine (BENTYL) injection 20 mg 02-19 19:15: 02-19 19:04 :00 No 20mg 20 mg, Intramuscu lar, ONCE, 1 dose, 02/19/21 at 1415, Routine [facility] proMETHazin e (PHENERGAN) 25 mg in NaCl 0.9% (NS) 50 mL piggyback 02-19 19:15: 00 02-19 19:03 :00 No 25mg 25 mg, IV Piggyback, ONCE, 1 dose, 02/19/21 at 1415, 50 mL [facility] morpHINE injection 4 mg 02-19 17:15: 00 02-19 17:05 :00 No 4mg 4 mg, Slow IV Push, ONCE, 1 dose, 02/19/21 at 1215, STAT [facility] NaCl 0.9% (NS) bolus infusion 1,000 mL 02-19 17:15: 02-19 19:04 :00 No 1000mL at 999 mL/hr, 1,000 mL, IV Infusion, ONCE, 1 dose, 02/19/21 at 1215, STAT [facility] ondansetron (ZOFRAN (PF)) injection 4 mg 02-19 17:00: 00 02-19 15:59 :00 No 4mg 4 mg, Slow IV Push, ONCE, 1 dose, 02/19/21 at 1200, MICHAEL [facility] iopamidol (ISOVUE 370-500 mL) injection 100 mL 02-19 16:35: 00 02-19 16:45 :00 No [id number] 100mL 100 mL, Intravenou s, ONCE, 1 dose, 02/19/21 at 1145, Routine [facility] levetiracet am (KEPPRA ORAL) 02-19 14:45: 33 Yes Take by mouth. [facility] dicyclomine 20 mg tablet 02-19 00:00: 00 01-09 00:00 :00 No [id number] 20mg Take 1 tablet by mouth 4 (four) times daily as needed for Abdominal pain. [facility] proMETHazin e 25 mg tablet 02-19 00:00: 00 11-27 00:00 :00 No [id number] 25mg Take 1 tablet by mouth every 6 (six) hours as needed for Nausea and Vomiting (N/V). [facility] ZONISAMIDE 100 mg capsule 11-15 00:00: 00 Yes TAKE 1 CAPSULE BY MOUTH TWICE A DAY [facility] ondansetron (ZOFRAN) 4 mg tablet 02-09 20:05: 01 Yes 4mg Take 4 mg by mouth every 8 (eight) hours as needed. [facility] pantoprazol e (PROTONIX) 40 mg EC tablet 02-09 20:05: 01 Yes 40mg Take 40 mg by mouth daily. [facility] LISINOPRIL- HYDROCHLORO THIAZIDE ORAL 02-09 20:05: 01 Yes Take by mouth. [facility] lisinopril- hydrochloro thiazide 20-12.5 mg per tablet 02-09 20:03: 30 Yes 1{tbl} Take 1 tablet by mouth daily. [facility] omega-3 fatty acids-vitam in E (FISH OIL) 1,000 mg capsule 02-09 19:59: 52 Yes 1g Take 1 g by mouth daily. [facility] MULTIVITAMI N ORAL 02-09 19:58: 14 Yes 1{tbl} Take 1 Tab by mouth daily. [facility] loratadine (CLARITIN LIQUI-GEL) 10 mg capsule 02-09 19:58: 14 Yes Take by mouth daily. [facility] ondansetron (ZOFRAN) 4 mg tablet 02-09 15:05: 01 Yes 4mg Take 4 mg by mouth every 8 (eight) hours as needed. [facility] pantoprazol e (PROTONIX) 40 mg EC tablet 02-09 15:05: 01 Yes 40mg Take 40 mg by mouth daily. [facility] lisinopril- hydrochloro thiazide 20-12.5 mg per tablet 02-09 15:03: 30 Yes 1{tbl} Take 1 tablet by mouth daily. [facility] omega-3 fatty acids-vitam in E (FISH OIL) 1,000 mg capsule 02-09 14:59: 52 Yes 1g Take 1 g by mouth daily. [facility] MULTIVITAMI N ORAL 02-09 14:58: 14 Yes 1{tbl} Take 1 Tab by mouth daily. [facility] loratadine (CLARITIN LIQUI-GEL) 10 mg capsule 02-09 14:58: 14 Yes Take by mouth daily. [facility] proMETHazin e (PHENERGAN) 25 mg tablet 11-20 00:00: 00 Yes 25mg Take 1 tablet by mouth every 6 (six) hours as needed for Nausea and Vomiting (N/V). [facility] carvedilol (COREG) 6.25 mg tablet 09-19 00:00: 00 12-02 00:00 :00 No 6.25mg Take 1 Tab by mouth 2 (two) times daily with meals. [facility] amLODIPine (NORVASC) 10 mg tablet 09-19 00:00: 00 12-02 00:00 :00 No 10mg Take 1 Tab by mouth daily. [facility] lisinopril (PRINIVIL,Z ESTRIL) 40 mg tablet 09-19 00:00: 00 11-27 00:00 :00 No 40mg Take 1 Tab by mouth daily. [facility] Immunizations Ordered Immunization Name Filled Immunization Name Date Status Comments Source SARS-COV-2 COVID-19 PFIZER BA-SUCROSE VACCINE (ROSE TOP) 2022-02-19 00:00:00 Completed [facility] SARS-COV-2 COVID-19 PFIZER BA-SUCROSE VACCINE (ROSE TOP) 2022-02-19 00:00:00 Completed [facility] SARS-COV-2 COVID-19 PFIZER BA-SUCROSE VACCINE (ROSE TOP) 2022-02-19 00:00:00 Completed [facility] SARS-COV-2 COVID-19 PFIZER BA-SUCROSE VACCINE (ROSE TOP) 2022-02-19 00:00:00 Completed [facility] SARS-COV-2 COVID-19 PFIZER BA-SUCROSE VACCINE (ROSE TOP) 2022-02-19 00:00:00 Completed [facility] SARS-COV-2 COVID-19 PFIZER BA-SUCROSE VACCINE (ROSE TOP) 2022-02-19 00:00:00 Completed [facility] SARS-COV-2 COVID-19 PFIZER BA-SUCROSE VACCINE (ROSE TOP) 2022-02-19 00:00:00 Completed [facility] SARS-COV-2 COVID-19 PFIZER BA-SUCROSE VACCINE (ROSE TOP) 2022-02-19 00:00:00 Completed [facility] SARS-COV-2 COVID-19 PFIZER BA-SUCROSE VACCINE (ROSE TOP) 2022-02-19 00:00:00 Completed [facility] SARS-COV-2 COVID-19 PFIZER VACCINE 2021-05-24 00:00:00 Completed [facility] SARS-COV-2 COVID-19 PFIZER VACCINE 2021-05-24 00:00:00 Completed [facility] SARS-COV-2 COVID-19 PFIZER VACCINE 2021-05-24 00:00:00 Completed [facility] SARS-COV-2 COVID-19 PFIZER VACCINE 2021-05-24 00:00:00 Completed [facility] SARS-COV-2 COVID-19 PFIZER VACCINE 2021-05-24 00:00:00 Completed [facility] SARS-COV-2 COVID-19 PFIZER VACCINE 2021-05-24 00:00:00 Completed [facility] SARS-COV-2 COVID-19 PFIZER VACCINE 2021-05-24 00:00:00 Completed [facility] SARS-COV-2 COVID-19 PFIZER VACCINE 2021-05-24 00:00:00 Completed [facility] SARS-COV-2 COVID-19 PFIZER VACCINE 2021-05-24 00:00:00 Completed [facility] SARS-COV-2 COVID-19 PFIZER VACCINE 2021-05-24 00:00:00 Completed [facility] SARS-COV-2 COVID-19 PFIZER VACCINE 2021-05-24 00:00:00 Completed [facility] SARS-COV-2 COVID-19 PFIZER VACCINE 2021-05-03 00:00:00 Completed [facility] SARS-COV-2 COVID-19 PFIZER VACCINE 2021-05-03 00:00:00 Completed [facility] SARS-COV-2 COVID-19 PFIZER VACCINE 2021-05-03 00:00:00 Completed [facility] SARS-COV-2 COVID-19 PFIZER VACCINE 2021-05-03 00:00:00 Completed [facility] SARS-COV-2 COVID-19 PFIZER VACCINE 2021-05-03 00:00:00 Completed [facility] SARS-COV-2 COVID-19 PFIZER VACCINE 2021-05-03 00:00:00 Completed [facility] SARS-COV-2 COVID-19 PFIZER VACCINE 2021-05-03 00:00:00 Completed [facility] SARS-COV-2 COVID-19 PFIZER VACCINE 2021-05-03 00:00:00 Completed [facility] SARS-COV-2 COVID-19 PFIZER VACCINE 2021-05-03 00:00:00 Completed [facility] SARS-COV-2 COVID-19 PFIZER VACCINE 2021-05-03 00:00:00 Completed [facility] SARS-COV-2 COVID-19 PFIZER VACCINE 2021-05-03 00:00:00 Completed [facility] SARS-COV-2 COVID-19 PFIZER VACCINE 2021-05-03 00:00:00 Completed [facility] SARS-COV-2 COVID-19 PFIZER VACCINE Unknown Completed [facility] SARS-COV-2 COVID-19 PFIZER BA-SUCROSE VACCINE (ROSE TOP) Unknown Completed [facility] SARS-COV-2 COVID-19 PFIZER BA-SUCROSE VACCINE (ROSE TOP) Unknown Completed [facility] SARS-COV-2 COVID-19 PFIZER VACCINE Unknown Completed [facility] SARS-COV-2 COVID-19 PFIZER VACCINE Unknown Completed [facility] SARS-COV-2 COVID-19 PFIZER BA-SUCROSE VACCINE (ROSE TOP) Unknown Completed [facility] SARS-COV-2 COVID-19 PFIZER VACCINE Unknown Completed [facility] SARS-COV-2 COVID-19 PFIZER BA-SUCROSE VACCINE (ROSE TOP) Unknown Completed [facility] SARS-COV-2 COVID-19 PFIZER VACCINE Unknown Completed [facility] SARS-COV-2 COVID-19 PFIZER BA-SUCROSE VACCINE (ROSE TOP) Unknown Completed [facility] SARS-COV-2 COVID-19 PFIZER VACCINE Unknown Completed [facility] SARS-COV-2 COVID-19 PFIZER BA-SUCROSE VACCINE (ROSE TOP) Unknown Completed [facility] SARS-COV-2 COVID-19 PFIZER VACCINE Unknown Completed [facility] SARS-COV-2 COVID-19 PFIZER BA-SUCROSE VACCINE (ROSE TOP) Unknown Completed [facility] SARS-COV-2 COVID-19 PFIZER VACCINE Unknown Completed [facility] SARS-COV-2 COVID-19 PFIZER BA-SUCROSE VACCINE (ROSE TOP) Unknown Completed [facility] SARS-COV-2 COVID-19 PFIZER VACCINE Unknown Completed [facility] SARS-COV-2 COVID-19 PFIZER BA-SUCROSE VACCINE (ROSE TOP) Unknown Completed [facility] SARS-COV-2 COVID-19 PFIZER VACCINE Unknown Completed [facility] SARS-COV-2 COVID-19 PFIZER BA-SUCROSE VACCINE (ROSE TOP) Unknown Completed [facility] SARS-COV-2 COVID-19 PFIZER VACCINE Unknown Completed [facility] SARS-COV-2 COVID-19 PFIZER BA-SUCROSE VACCINE (ROSE TOP) Unknown Completed [facility] SARS-COV-2 COVID-19 PFIZER VACCINE Unknown Completed [facility] SARS-COV-2 COVID-19 PFIZER BA-SUCROSE VACCINE (ROSE TOP) Unknown Completed [facility] SARS-COV-2 COVID-19 PFIZER VACCINE Unknown Completed [facility] SARS-COV-2 COVID-19 PFIZER BA-SUCROSE VACCINE (ROSE TOP) Unknown Completed [facility] SARS-COV-2 COVID-19 PFIZER VACCINE Unknown Completed [facility] SARS-COV-2 COVID-19 PFIZER BA-SUCROSE VACCINE (ROSE TOP) Unknown Completed [facility] Vital Signs Vital Name Observation Time Observation Value Comments S ource Systolic blood pressure 2024-04-03 05:10:00 111 mm[Hg] [facility] Diastolic blood pressure 2024-04-03 05:10:00 65 mm[Hg] [facility] Heart rate 2024-04-03 05:10:00 70 /min [facility] Respiratory rate 2024-04-03 05:10:00 23 /min [facility] Oxygen saturation in Arterial blood by Pulse oximetry 2024-04-03 05:10:00 97 /min [facility] Body temperature 2024-04-03 01:49:00 37.33 Radha [facility] Body height 2024-04-03 01:49:00 157.5 cm [facility] Body weight 2024-04-03 01:49:00 90.719 kg [facility] BMI 2024-04-03 01:49:00 36.58 kg/m2 [facility] Systolic blood pressure 2024-01-13 04:50:00 103 mm[Hg] [facility] Diastolic blood pressure 2024-01-13 04:50:00 72 mm[Hg] [facility] Heart rate 2024-01-13 04:50:00 85 /min [facility] Body temperature 2024-01-13 04:50:00 36.67 Radha [facility] Oxygen saturation in Arterial blood by Pulse oximetry 2024-01-13 04:50:00 99 /min [facility] Respiratory rate 2024-01-13 04:40:00 19 /min [facility] Body height 2024-01-13 03:06:00 160 cm [facility] Body weight 2024-01-13 03:06:00 81.194 kg [facility] BMI 2024-01-13 03:06:00 31.71 kg/m2 [facility] Systolic blood pressure 2024-01-10 20:00:00 95 mm[Hg] [facility] Diastolic blood pressure 2024-01-10 20:00:00 71 mm[Hg] [facility] Heart rate 2024-01-10 20:00:00 73 /min [facility] Body temperature 2024-01-10 20:00:00 36.83 Radha [facility] Respiratory rate 2024-01-10 20:00:00 23 /min [facility] Oxygen saturation in Arterial blood by Pulse oximetry 2024-01-10 20:00:00 94 /min [facility] Body weight 2024-01-10 09:00:00 81.466 kg [facility] BMI 2024-01-10 09:00:00 32.85 kg/m2 [facility] Body height 2024-01-09 21:10:00 157.5 cm [facility] Heart rate 2023-12-15 12:35:00 73 /min [facility] Respiratory rate 2023-12-15 12:35:00 18 /min [facility] Oxygen saturation in Arterial blood by Pulse oximetry 2023-12-15 12:35:00 95 /min [facility] Systolic blood pressure 2023-12-15 12:20:00 105 mm[Hg] [facility] Diastolic blood pressure 2023-12-15 12:20:00 64 mm[Hg] [facility] Body temperature 2023-12-15 12:20:00 36.11 Radha [facility] Body weight 2023-12-15 08:12:00 78.472 kg [facility] BMI 2023-12-15 08:12:00 30.65 kg/m2 [facility] Body height 2023-12-15 02:10:00 160 cm [facility] Systolic blood pressure 2023-12-03 23:00:00 106 mm[Hg] [facility] Diastolic blood pressure 2023-12-03 23:00:00 75 mm[Hg] [facility] Heart rate 2023-12-03 23:00:00 108 /min [facility] Body temperature 2023-12-03 23:00:00 36.61 Radha [facility] Respiratory rate 2023-12-03 23:00:00 17 /min [facility] Oxygen saturation in Arterial blood by Pulse oximetry 2023-12-03 23:00:00 96 /min [facility] Body height 2023-12-03 19:39:00 160 cm [facility] Body weight 2023-12-03 19:39:00 90.7 kg [facility] BMI 2023-12-03 19:39:00 35.43 kg/m2 [facility] Systolic blood pressure 2023-11-28 16:39:00 91 mm[Hg] [facility] Diastolic blood pressure 2023-11-28 16:39:00 65 mm[Hg] [facility] Heart rate 2023-11-28 16:39:00 105 /min [facility] Body temperature 2023-11-28 16:39:00 36.28 Radha [facility] Respiratory rate 2023-11-28 16:39:00 20 /min [facility] Oxygen saturation in Arterial blood by Pulse oximetry 2023-11-28 16:39:00 97 /min [facility] Body weight 2023-11-28 01:00:00 84 kg [facility] BMI 2023-11-28 01:00:00 32.81 kg/m2 [facility] Body height 2023-11-22 07:10:00 160 cm [facility] Systolic blood pressure 2023-11-23 19:43:25 123 mm[Hg] [facility] Diastolic blood pressure 2023-11-23 19:43:25 79 mm[Hg] [facility] Respiratory rate 2023-11-23 19:43:25 17 /min [facility] Oxygen saturation in Arterial blood by Pulse oximetry 2023-11-23 19:43:25 97 /min [facility] Heart rate 2023-11-23 19:20:46 122 /min [facility] Body temperature 2023-11-23 15:00:00 36.22 Radha [facility] Body height 2023-11-22 07:10:00 160 cm [facility] Body weight 2023-11-22 07:10:00 94.484 kg [facility] BMI 2023-11-22 07:10:00 35.16 kg/m2 [facility] Systolic blood pressure 2023-09-11 17:27:00 122 [...] - External BMI 2023-09-11 17:27:00 31.78 kg/m2 [employer] Seybold - External Oxygen saturation in Arterial blood by Pulse oximetry 2023-09-11 17:27:00 97 /min Cynthia Bedoyao ld - External Systolic blood pressure 2023-08-12 21:00:00 130 mm[Hg] [facility] Diastolic blood pressure 2023-08-12 21:00:00 85 mm[Hg] [facility] Heart rate 2023-08-12 21:00:00 106 /min [facility] Respiratory rate 2023-08-12 21:00:00 14 /min [facility] Oxygen saturation in Arterial blood by Pulse oximetry 2023-08-12 21:00:00 95 /min [facility] Body temperature 2023-08-12 20:34:54 37.22 Radha [facility] Body height 2023-08-12 19:47:00 157.5 cm [facility] Body weight 2023-08-12 19:47:00 81.647 kg [facility] BMI 2023-08-12 19:47:00 32.92 kg/m2 [facility] WEIGHT 2023-06-16 05:26:00 86.047 kg [...] Center Respiratory rate 2022-12-11 20:00:00 24 /min [facility] Heart rate 2022-12-11 18:00:00 101 /min [facility] Oxygen saturation in Arterial blood by Pulse oximetry 2022-12-11 18:00:00 93 /min [facility] BMI 2022-12-11 13:55:00 35.43 kg/m2 [facility] Body temperature 2022-12-11 13:55:00 37.22 Radha [facility] Body weight 2022-12-11 13:55:00 90.719 kg [facility] Systolic blood pressure 2022-11-18 05:34:00 152 mm[Hg] [facility] Diastolic blood pressure 2022-11-18 05:34:00 98 mm[Hg] [facility] Heart rate 2022-11-18 05:34:00 88 /min [facility] Respiratory rate 2022-11-18 05:34:00 18 /min [facility] Oxygen saturation in Arterial blood by Pulse oximetry 2022-11-18 05:34:00 97 /min [facility] Body temperature 2022-11-17 22:28:00 37.06 Radha [facility] Body height 2022-11-17 22:28:00 160 cm [facility] Body weight 2022-11-17 22:28:00 99.791 kg [facility] BMI 2022-11-17 22:28:00 38.97 kg/m2 [facility] Heart rate 2022-08-02 02:02:00 108 /min [facility] Respiratory rate 2022-08-02 02:02:00 28 /min [facility] Oxygen saturation in Arterial blood by Pulse oximetry 2022-08-02 02:02:00 97 /min [facility] Body temperature 2022-08-02 01:00:00 36.44 Radha [facility] Systolic blood pressure 2022-08-01 23:29:00 145 mm[Hg] [facility] Diastolic blood pressure 2022-08-01 23:29:00 103 mm[Hg] [facility] Body weight 2022-08-01 09:16:00 97.977 [facility] Body temperature 2022-05-08 16:40:00 36.78 Radha [facility] Respiratory rate 2022-05-08 16:40:00 18 /min [facility] Oxygen saturation in Arterial blood by Pulse oximetry 2022-05-08 16:40:00 94 /min [facility] Body height 2022-05-05 23:44:00 160 cm [facility] Body weight 2022-05-05 23:37:00 81.647 kg [facility] BMI 2022-05-05 23:37:00 31.89 kg/m2 [facility] Systolic blood pressure 2022-04-15 18:52:00 104 mm[Hg] [facility] Diastolic blood pressure 2022-04-15 18:52:00 82 mm[Hg] [facility] Heart rate 2022-04-15 18:52:00 114 /min [facility] Oxygen saturation in Arterial blood by Pulse oximetry 2022-04-15 18:52:00 98 /min [facility] Body temperature 2022-04-15 16:14:00 36.28 Radha [facility] Respiratory rate 2022-04-15 16:14:00 17 /min [facility] Body height 2022-04-13 21:08:00 160 cm [facility] Respiratory rate 2021-11-23 21:30:00 13 /min [facility] Oxygen saturation in Arterial blood by Pulse oximetry 2021-11-23 21:30:00 97 /min [facility] Body temperature 2021-11-23 20:15:00 37.56 Radha [facility] Systolic blood pressure 2021-03-17 03:00:00 117 mm[Hg] [facility] Diastolic blood pressure 2021-03-17 03:00:00 76 mm[Hg] [facility] Heart rate 2021-03-17 03:00:00 104 /min [facility] Respiratory rate 2021-03-17 03:00:00 28 /min [facility] Oxygen saturation in Arterial blood by Pulse oximetry 2021-03-17 03:00:00 96 /min [facility] Body temperature 2021-03-17 00:39:00 37.11 Radha [facility] Body height 2021-03-17 00:39:00 160 cm [facility] Body weight 2021-03-17 00:39:00 58.968 kg [facility] BMI 2021-03-17 00:39:00 23.03 kg/m2 [facility] Systolic blood pressure 2021-03-15 00:14:00 149 mm[Hg] [facility] Diastolic blood pressure 2021-03-15 00:14:00 78 mm[Hg] [facility] Heart rate 2021-03-15 00:14:00 100 /min [facility] Body temperature 2021-03-15 00:14:00 37.33 Radha [facility] Respiratory rate 2021-03-15 00:14:00 24 /min [facility] Body height 2021-03-15 00:14:00 160 cm [facility] Heart rate 2021-02-19 18:00:00 83 /min [facility] Respiratory rate 2021-02-19 18:00:00 18 /min [facility] Oxygen saturation in Arterial blood by Pulse oximetry 2021-02-19 18:00:00 100 /min [facility] Body temperature 2021-02-19 15:47:00 37 Radha [facility] Body height 2021-02-19 15:47:00 160 cm [facility] Body weight 2021-02-19 15:47:00 58.968 kg [facility] BMI 2021-02-19 15:47:00 23.03 kg/m2 [facility] Heart rate 2023-09-08 08:54:00 118 /min [facility] Respiratory rate 2023-09-08 08:54:00 21 /min [facility] Oxygen saturation in Arterial blood by Pulse oximetry 2023-09-08 08:54:00 100 /min [facility] Systolic blood pressure 2023-09-08 08:32:00 110 mm[Hg] [facility] Diastolic blood pressure 2023-09-08 08:32:00 77 mm[Hg] [facility] Body temperature 2023-09-08 08:32:00 36.06 Radha [facility] Body height 2023-09-04 00:58:00 157.5 cm [facility] Body weight 2023-09-04 00:58:00 80 kg [facility] BMI 2023-09-04 00:58:00 32.26 kg/m2 [facility] Heart rate 2023-06-16 17:00:00 108 /min [facility] Systolic blood pressure 2023-06-16 15:31:00 101 mm[Hg] [facility] Diastolic blood pressure 2023-06-16 15:31:00 81 mm[Hg] [facility] Body temperature 2023-06-16 15:31:00 36.61 Radha [facility] Respiratory rate 2023-06-16 15:31:00 18 /min [facility] Oxygen saturation in Arterial blood by Pulse oximetry 2023-06-16 15:31:00 94 /min [facility] Body weight 2023-06-16 05:26:00 86.047 kg [facility] BMI 2023-06-16 05:26:00 33.60 kg/m2 [facility] Body height 2023-06-13 04:00:00 160 cm [facility] Systolic blood pressure 2023-06-04 13:02:00 93 mm[Hg] [facility] Diastolic blood pressure 2023-06-04 13:02:00 57 mm[Hg] [facility] Heart rate 2023-06-04 13:02:00 101 /min [facility] Respiratory rate 2023-06-04 13:02:00 22 /min [facility] Oxygen saturation in Arterial blood by Pulse oximetry 2023-06-04 13:02:00 95 /min room air [facility] Body temperature 2023-06-04 11:46:00 35.28 Radha [facility] Systolic blood pressure 2023-05-28 16:00:00 154 mm[Hg] [facility] Diastolic blood pressure 2023-05-28 16:00:00 82 mm[Hg] [facility] Heart rate 2023-05-28 16:00:00 89 /min [facility] Body temperature 2023-05-28 16:00:00 36.67 Radha [facility] Respiratory rate 2023-05-28 16:00:00 16 /min [facility] Oxygen saturation in Arterial blood by Pulse oximetry 2023-05-28 16:00:00 97 /min [facility] Body height 2023-05-28 07:00:00 157.5 cm [facility] Body weight 2023-05-28 07:00:00 87.544 kg [facility] BMI 2023-05-28 07:00:00 35.30 kg/m2 [facility] Body height 2023-05-26 09:12:00 157.5 cm [facility] Body weight 2023-05-26 09:12:00 87.091 kg [facility] BMI 2023-05-26 09:12:00 35.12 kg/m2 [facility] Respiratory rate 2023-04-02 16:35:00 18 /min [facility] Oxygen saturation in Arterial blood by Pulse oximetry 2023-04-02 16:35:00 98 /min [facility] Systolic blood pressure 2023-04-02 12:00:00 147 mm[Hg] [facility] Diastolic blood pressure 2023-04-02 12:00:00 97 mm[Hg] [facility] Heart rate 2023-04-02 12:00:00 106 /min [facility] Body temperature 2023-04-02 12:00:00 36.28 Radha [facility] Body height 2023-03-30 02:14:00 157.5 cm [facility] Body weight 2023-03-30 02:14:00 92.08 kg [facility] BMI 2023-03-30 02:14:00 37.13 kg/m2 [facility] Respiratory rate 2022-08-03 14:40:00 18 /min [facility] Systolic blood pressure 2022-08-03 12:13:00 112 mm[Hg] [facility] Diastolic blood pressure 2022-08-03 12:13:00 77 mm[Hg] [facility] Heart rate 2022-08-03 12:13:00 115 /min [facility] Oxygen saturation in Arterial blood by Pulse oximetry 2022-08-03 12:13:00 93 /min [facility] Body temperature 2022-08-03 12:00:00 36.83 Radha [facility] Body height 2022-08-02 21:52:00 160.2 cm [facility] Body weight 2022-08-02 21:52:00 95 kg [facility] BMI 2022-08-02 21:52:00 37.02 kg/m2 [facility] BP Systolic 2022-07-24 13:31:00 136 [...] ACID WHOLE BLOOD 2024-04-03 01:59:00 Tammy Chrissy [facility] BASIC METABOLIC PANEL (NA, K , CL, CO2, GLUCOSE, BUN, CREATININE, CA) 2024-04-03 01:58:00 Tammy Chrissy [facility] CBC WITH DIFF 2024-04-03 01:58:00 Tammy Chrissy [facility] N-TERMINAL PRO-BNP 2024-04-03 01:58:00 Tammy Chrissy [facility] EKG-12 LEAD 2024-01-13 04:42:14 Radha Wyatt [facility] TROPONIN I 2024-01-13 03:20:00 Radha Wyatt [facility] COMP. METABOLIC PANEL ([id number]) 2024-01-13 03:20:00 Radha Wyatt [facility] CBC WITH DIFF 2024-01-13 03:20:00 Radha Wyatt [facility] TRANSTHORACIC ECHO (TTE) LIMITED W/ DOPPLER, COLOR AND CONTRAST 2024-01-10 13:07:00 Darrick Altamirano [facility] MAGNESIUM 2024-01-10 09:16:00 Darrick Altamirano [facility] TROPONIN I 2024-01-10 09:16:00 Darrick Altamirano [facility] BASIC METABOLIC PANEL (NA, K , CL, CO2, GLUCOSE, BUN, CREATININE, CA) 2024-01-10 09:16:00 Darrick Altamirano [facility] LIPID PANEL ([id number])(TOTAL CHOLESTEROL, TRIGLYCERIDES, HDL) 2024-01-10 09:16:00 Darrick Altamirano [facility] CBC WITH DIFF 2024-01-10 09:16:00 Darrick Altamirano [facility] PROTHROMBIN TIME / INR 2024-01-10 09:16:00 Darrick Altamirano [facility] ACTIVATED PARTIAL THRMPLAS DAVID 2024-01-10 09:16:00 Darrick Altamirano [facility] N-TERMINAL PRO-BNP 2024-01-10 09:16:00 Darrick Altamirano [facility] PHOSPHORUS 2024-01-10 04:58:00 Darrick Altamirano [facility] BLOOD CULTURE SCREEN 2024-01-10 02:39:00 Alfonso Alvarado [facility] BLOOD CULTURE SCREEN 2024-01-10 02:20:00 Alfonso Alvarado [facility] LACTIC ACID WHOLE BLOOD 2024-01-10 01:52:00 Alfonso Alvarado [facility] CT CHEST PULMONARY ANGIOGRAM 2024-01-09 23:59:01 Abundio [facility] XR CHEST 1 VW 2024-01-09 21:49:00 Abundio [facility] TROPONIN I 2024-01-09 21:39:00 [facility] COMP. METABOLIC PANEL ([id number]) 2024-01-09 21:39:00 [facility] CBC WITH DIFF 2024-01-09 21:39:00 Abundio [facility] D-DIMER 2024-01-09 21:39:00 Abundio [facility] N-TERMINAL PRO-BNP 2024-01-09 21:39:00 Abundio [facility] HB ECG ROUTINE & RHYTHM STRIP 2024-01-09 21:13:02 Olena Del Castillo [facility] POCT GLUCOSE (AUTOMATED) 2023-12-15 12:43:00 Reema [facility] MAGNESIUM 2023-12-15 10:26:00 Reema [facility] TROPONIN I 2023-12-15 10:26:00 Reema [facility] BASIC METABOLIC PANEL (NA, K , CL, CO2, GLUCOSE, BUN, CREATININE, CA) 2023-12-15 10:26:00 Reema [facility] CBC WITH DIFF 2023-12-15 10:26:00 Daria [facility] N-TERMINAL PRO-BNP 2023-12-15 10:26:00 Reema [facility] TROPONIN I 2023-12-15 03:21:00 Reema [facility] FREE T4 2023-12-15 03:21:00 Reema [facility] DIGOXIN 2023-12-15 03:21:00 Daria [facility] POCT GLUCOSE (AUTOMATED) 2023-12-15 00:56:00 Reema [facility] TROPONIN I 2023-12-14 21:05:00 Singer [facility] THYROID STIMULATING HORMONE 2023-12-14 21:05:00 Reema [facility] FREE T3 2023-12-14 21:05:00 Reema [facility] XR CHEST 1 VW 2023-12-14 19:25:00 Singer [facility] TROPONIN I 2023-12-14 19:19:00 Singer [facility] COMP. METABOLIC PANEL ([id number]) 2023-12-14 19:19:00 Singer [facility] CBC WITH DIFF 2023-12-14 19:19:00 Singer [facility] D-DIMER 2023-12-14 19:19:00 Singer [facility] N-TERMINAL PRO-BNP 2023-12-14 19:19:00 Singer [facility] EKG-12 LEAD 2023-12-14 18:38:57 Tal Benavidez [facility] POCT GLUCOSE (AUTOMATED) 2023-12-03 21:23:00 Connor Renee [facility] BASIC METABOLIC PANEL (NA, K , CL, CO2, GLUCOSE, BUN, CREATININE, CA) 2023-12-03 17:58:00 Mukesh Tabor [facility] POCT GLUCOSE (AUTOMATED) 2023-12-03 16:51:00 Connor Renee [facility] POCT GLUCOSE (AUTOMATED) 2023-12-03 13:00:00 Connor Renee [facility] MAGNESIUM 2023-12-03 09:21:00 Ginny Mariaelena [facility] HEPATIC FUNCTION PANEL ([id number]) (ALB,T.PRO,BILI T,BU/BC,ALT,AST,ALK PHOS) 2023-12-03 09:21:00 Mariaelena Gross [facility] BASIC METABOLIC PANEL (NA, K , CL, CO2, GLUCOSE, BUN, CREATININE, CA) 2023-12-03 09:21:00 Mariaelena Gross [facility] AC PANEL 21 + LACTIC ACID 2023-12-03 01:45:00 Abel Grosslla [facility] MRSA / MSSA SCREEN BY PCR, RED 2023-12-03 01:45:00 Mariaelena Gross [facility] CT CHEST PULMONARY ANGIOGRAM 2023-12-02 19:32:14 Connor Renee [facility] XR CHEST 1 VW 2023-12-02 19:04:00 Connor Renee [facility] BLOOD CULTURE SCREEN 2023-12-02 18:53:00 Connor Renee [facility] TROPONIN I 2023-12-02 18:53:00 Connor Renee [facility] COMP. METABOLIC PANEL ([id number]) 2023-12-02 18:53:00 Connor Renee [facility] CBC WITH DIFF 2023-12-02 18:53:00 Connor Renee [facility] RAPID INFLUENZA A/B 2023-12-02 18:53:00 Connor Renee [facility] N-TERMINAL PRO-BNP 2023-12-02 18:53:00 Connor Renee [facility] COVID-19 (ID NOW RAPID TESTING) 2023-12-02 18:53:00 Connor Renee [facility] BLOOD CULTURE SCREEN 2023-12-02 18:49:00 Connor Renee [facility] AC ABG + LACTIC ACID 2023-12-02 18:26:00 Connor Renee [facility] HB ECG ROUTINE & RHYTHM STRIP 2023-12-02 18:06:10 Connor Renee [facility] POCT GLUCOSE (AUTOMATED) 2023-11-28 16:40:00 Cr Altamirano [facility] PHOSPHORUS 2023-11-28 09:22:00 Leander [facility] MAGNESIUM 2023-11-28 09:22:00 Leander [facility] COMP. METABOLIC PANEL ([id number]) 2023-11-28 09:22:00 Leander [facility] CBC WITH DIFF 2023-11-28 09:22:00 Leander [facility] N-TERMINAL PRO-BNP 2023-11-28 09:22:00 Torrey Baez [facility] POCT GLUCOSE (AUTOMATED) 2023-11-28 01:31:00 Lorenzo Ventura [facility] POCT GLUCOSE (AUTOMATED) 2023-11-27 21:45:00 Lorenzo Hemrosalie [facility] POCT GLUCOSE (AUTOMATED) 2023-11-27 16:30:00 Lorenzo Hemrosalie [facility] POCT GLUCOSE (AUTOMATED) 2023-11-27 12:39:00 Lorenzo Ventura [facility] LACTIC ACID WHOLE BLOOD 2023-11-27 06:35:00 Leander [facility] MAGNESIUM 2023-11-27 06:34:00 Leander [facility] COMP. METABOLIC PANEL ([id number]) 2023-11-27 06:34:00 Leander [facility] URINE DRUG (IMMUNOASSAY) - COMPREHENSIVE DRUG SCREEN 2023-11-27 03:59:00 Leander [facility] POCT GLUCOSE (AUTOMATED) 2023-11-27 02:25:00 Lorenzo Ventura [facility] CT HEAD WO CONTRAST 2023-11-26 21:56:31 Leander [facility] MAGNESIUM 2023-11-26 21:32:00 Leander [facility] COMP. METABOLIC PANEL ([id number]) 2023-11-26 21:32:00 Leander [facility] POCT GLUCOSE (AUTOMATED) 2023-11-26 21:11:00 Lorenzo Ventura [facility] VALPROIC ACID, FREE 2023-11-26 18:07:00 Leander [facility] KEPPRA (LEVETIRACETAM) 2023-11-26 18:07:00 Leander [facility] LACTIC ACID WHOLE BLOOD 2023-11-26 18:07:00 Leander [facility] POCT GLUCOSE (AUTOMATED) 2023-11-26 17:05:00 Lorenzo Ventura [facility] MAGNESIUM 2023-11-26 13:28:00 Raghu [facility] VITAMIN B12, LEVEL 2023-11-26 13:28:00 Leander [facility] FOLATE 2023-11-26 13:28:00 Leander [facility] COMP. METABOLIC PANEL ([id number]) 2023-11-26 13:28:00 Raghu Castellanos [facility] CBC WITH DIFF 2023-11-26 13:28:00 Leander [facility] LACTIC ACID WHOLE BLOOD 2023-11-26 09:52:00 Robinson Shin [facility] POCT GLUCOSE (AUTOMATED) 2023-11-26 02:13:00 Lorenzo Ventura [facility] LACTIC ACID WHOLE BLOOD 2023-11-26 00:53:00 Raghu Castellanos [facility] ELECTROENCEPHALOGRAM 2023-11-26 00:00:00 Leander [facility] POCT GLUCOSE (AUTOMATED) 2023-11-25 20:59:00 Lorenzo Ventura [facility] LACTIC ACID WHOLE BLOOD 2023-11-25 20:56:00 Raghu Castellanos [facility] MAGNESIUM 2023-11-25 20:55:00 Raghu Castellanos [facility] COMP. METABOLIC PANEL ([id number]) 2023-11-25 20:55:00 Raghu Castellanos [facility] POCT GLUCOSE (AUTOMATED) 2023-11-25 16:58:00 Lorenzo Ventura [facility] POCT GLUCOSE (AUTOMATED) 2023-11-25 13:04:00 Lorenzo Ventura [facility] LACTIC ACID WHOLE BLOOD 2023-11-25 09:25:00 Jessica [facility] MAGNESIUM 2023-11-25 09:24:00 Raghu Castellanos [facility] COMP. METABOLIC PANEL ([id number]) 2023-11-25 09:24:00 Jessica [facility] CBC WITH DIFF 2023-11-25 09:24:00 Leander [facility] MAGNESIUM 2023-11-25 04:52:00 Leander [facility] COMP. METABOLIC PANEL ([id number]) 2023-11-25 04:52:00 Leander [facility] LACTIC ACID WHOLE BLOOD 2023-11-25 04:52:00 Leander [facility] POCT GLUCOSE (AUTOMATED) 2023-11-25 03:00:00 Lorenzo Ventura [facility] TROPONIN I 2023-11-25 02:59:00 Jessica [facility] COMP. METABOLIC PANEL ([id number]) 2023-11-25 02:59:00 Jessica [facility] HIV 1/2 AG-AB WITH REFLEX 2023-11-25 02:59:[address] [facility] [address] ABDOMEN PELVIS W CONTRAST 2023-11-24 22:24:00 Leander [facility] POCT GLUCOSE (AUTOMATED) 2023-11-24 21:21:00 Lorenzo Hemrosalie [facility] MAGNESIUM 2023-11-24 21:08:00 Leander [facility] COMP. METABOLIC PANEL ([id number]) 2023-11-24 21:08:00 Leander [facility] LACTIC ACID WHOLE BLOOD 2023-11-24 21:08:00 Nestor Lopez [facility] POCT GLUCOSE (AUTOMATED) 2023-11-24 17:43:00 Lorenzo Hemrosalie [facility] POCT GLUCOSE (AUTOMATED) 2023-11-24 17:43:00 Lorenzo Hemrosalie [facility] MAGNESIUM 2023-11-24 15:47:00 Leander [facility] COMP. METABOLIC PANEL ([id number]) 2023-11-24 15:47:00 Leander [facility] ACTIVATED PARTIAL THRMPLAS DAVID 2023-11-24 15:47:00 Uli [facility] LACTIC ACID WHOLE BLOOD 2023-11-24 15:47:00 Tabor, [facility] MAGNESIUM 2023-11-24 15:47:00 Leander [facility] COMP. METABOLIC PANEL ([id number]) 2023-11-24 15:47:00 Leander [facility] ACTIVATED PARTIAL THRMPLAS DAVID 2023-11-24 15:47:00 Uli [facility] LACTIC ACID WHOLE BLOOD 2023-11-24 15:47:00 Leander [facility] POCT GLUCOSE (AUTOMATED) 2023-11-24 12:33:00 Lorenzo Hemrosalie [facility] POCT GLUCOSE (AUTOMATED) 2023-11-24 12:33:00 Lorenzo Hemrosalie [facility] MAGNESIUM 2023-11-24 10:03:00 Leander [facility] COMP. METABOLIC PANEL ([id number]) 2023-11-24 10:03:00 Leander [facility] CBC WITH DIFF 2023-11-24 10:03:00 Leander [facility] LACTIC ACID WITH 3 HOUR REFLEX 2023-11-24 10:03:00 Tabor, [facility] MAGNESIUM 2023-11-24 10:03:00 Leander [facility] COMP. METABOLIC PANEL ([id number]) 2023-11-24 10:03:00 Leander [facility] CBC WITH DIFF 2023-11-24 10:03:00 Tabor, [facility] LACTIC ACID WITH 3 HOUR REFLEX 2023-11-24 10:03:00 Leander [facility] ACTIVATED PARTIAL THRMPLAS DAVID 2023-11-24 06:13:00 Uli [facility] ACTIVATED PARTIAL THRMPLAS DAVID 2023-11-24 06:13:00 Uli [facility] POCT GLUCOSE (AUTOMATED) 2023-11-24 03:15:00 Lorenzo Ventura [facility] POCT GLUCOSE (AUTOMATED) 2023-11-24 03:15:00 Lorenzo Ventura [facility] ACTIVATED PARTIAL THRMPLAS DAVID 2023-11-23 23:09:00 Uli [facility] ACTIVATED PARTIAL THRMPLAS DAVID 2023-11-23 23:09:00 Uli [facility] POCT GLUCOSE (AUTOMATED) 2023-11-23 21:28:00 Lorenzo Ventura [facility] POCT GLUCOSE (AUTOMATED) 2023-11-23 21:28:00 Lorenzo Ventura [facility] CATH PROCEDURE LOG 2023-11-23 20:38:36 Lisandra [facility] CATH PROCEDURE LOG 2023-11-23 20:38:36 Lisandra Cr [facility] CARDIAC CATHETERIZATION 2023-11-23 20:11:00 Senthil Altamiranowan [facility] CARDIAC CATHETERIZATION 2023-11-23 20:11:00 Cr Altamirano [facility] CARDIAC CATHETERIZATION 2023-11-23 20:11:00 Cr Altamirano [facility] CARDIAC CATHETERIZATION 2023-11-23 20:11:00 Cr Altamirano [facility] POCT GLUCOSE (AUTOMATED) 2023-11-23 17:18:00 Lorenzo Hemrosalie [facility] POCT GLUCOSE (AUTOMATED) 2023-11-23 17:18:00 Lorenzo Hemrosalie [facility] POCT GLUCOSE (AUTOMATED) 2023-11-23 16:50:00 [facility] POCT GLUCOSE (AUTOMATED) 2023-11-23 16:50:00 [facility] ACTIVATED PARTIAL THRMPLAS DAVID 2023-11-23 15:13:00 Uli [facility] ACTIVATED PARTIAL THRMPLAS DAVID 2023-11-23 15:13:00 Uli [facility] LACTIC ACID WHOLE BLOOD 2023-11-23 15:12:[address] [facility] LACTIC ACID WHOLE BLOOD 2023-11-23 15:12:[address] [facility] POCT GLUCOSE (AUTOMATED) 2023-11-23 12:47:00 Lorenzo Urielrosalie [facility] POCT GLUCOSE (AUTOMATED) 2023-11-23 12:47:00 Lorenzo Ventura [facility] MAGNESIUM 2023-11-23 07:52:00 [facility] HEPATIC FUNCTION PANEL (79142) (ALB,T.PRO,BILI T,BU/BC,ALT,AST,ALK PHOS) 2023-11-23 07:52:00 Mukesh Tabor [facility] BASIC METABOLIC PANEL (NA, K , CL, CO2, GLUCOSE, BUN, CREATININE, CA) 2023-11-23 07:52:00 [facility] CBC WITH DIFF 2023-11-23 07:52:00 Louise [facility] ACTIVATED PARTIAL THRMPLAS DAVID 2023-11-23 07:52:00 Uli [facility] LACTIC ACID WHOLE BLOOD 2023-11-23 07:52:00 Robinson Shin [facility] MAGNESIUM 2023-11-23 07:52:00 Louise [facility] HEPATIC FUNCTION PANEL ([id number]) (ALB,T.PRO,BILI T,BU/BC,ALT,AST,ALK PHOS) 2023-11-23 07:52:00 Mukesh Tabor [facility] BASIC METABOLIC PANEL (NA, K , CL, CO2, GLUCOSE, BUN, CREATININE, CA) 2023-11-23 07:52:00 [facility] CBC WITH DIFF 2023-11-23 07:52:00 [facility] ACTIVATED PARTIAL THRMPLAS DAVID 2023-11-23 07:52:00 Cris Mcnally [facility] LACTIC ACID WHOLE BLOOD 2023-11-23 07:52:[address] [facility] LACTIC ACID WHOLE BLOOD 2023-11-23 05:00:[address] [facility] LACTIC ACID WHOLE BLOOD 2023-11-23 05:00:[address] [facility] LACTIC ACID WHOLE BLOOD 2023-11-23 03:12:[address] [facility] LACTIC ACID WHOLE BLOOD 2023-11-23 03:12:[address] [facility] LACTIC ACID WHOLE BLOOD 2023-11-23 00:57:[address] [facility] LACTIC ACID WHOLE BLOOD 2023-11-23 00:57:[address] [facility] POCT GLUCOSE (AUTOMATED) 2023-11-23 00:56:00 Lorenzo Ventura [facility] POCT GLUCOSE (AUTOMATED) 2023-11-23 00:56:00 Lorenzo Ventura [facility] LACTIC ACID WHOLE BLOOD 2023-11-22 23:49:[address] [facility] LACTIC ACID WHOLE BLOOD 2023-11-22 23:49:[address] [facility] POCT GLUCOSE (AUTOMATED) 2023-11-22 21:49:00 Lorenzo Ventura [facility] POCT GLUCOSE (AUTOMATED) 2023-11-22 21:49:00 Lorenzo Ventura [facility] LACTIC ACID WHOLE BLOOD 2023-11-22 21:41:00 Leander [facility] LACTIC ACID WHOLE BLOOD 2023-11-22 21:41:00 Leander [facility] POCT GLUCOSE (AUTOMATED) 2023-11-22 21:01:00 Lorenzo Sissydianna [facility] POCT GLUCOSE (AUTOMATED) 2023-11-22 21:01:00 Lorenzo Urielrosalie [facility] ACTIVATED PARTIAL THRMPLAS DAVID 2023-11-22 19:46:00 Uli [facility] LACTIC ACID WHOLE BLOOD 2023-11-22 19:46:00 Leander [facility] ACTIVATED PARTIAL THRMPLAS DAVID 2023-11-22 19:46:00 Uli [facility] LACTIC ACID WHOLE BLOOD 2023-11-22 19:46:00 Leander [facility] LACTIC ACID WHOLE BLOOD 2023-11-22 17:22:00 Faby [facility] LACTIC ACID WHOLE BLOOD 2023-11-22 17:22:00 Faby [facility] POCT GLUCOSE (AUTOMATED) 2023-11-22 17:00:00 Ignacio [facility] POCT GLUCOSE (AUTOMATED) 2023-11-22 17:00:00 [facility] LOWER EXTREMITY ARTERIAL DUPLEX BILATERAL - BY VASCULAR LAB 2023-11-22 16:43:47 Faby [facility] LOWER EXTREMITY ARTERIAL DUPLEX BILATERAL - BY VASCULAR LAB 2023-11-22 16:43:47 Faby [facility] TRANSTHORACIC ECHO (TTE) COMPLETE W/ CONTRAST 2023-11-22 15:50:00 [facility] (TTE[facility] COMPLETE W/ CONTRAST 2023-11-22 15:50:[address] [facility] ABDOMEN LIMITED 2023-11-22 14:54:18 [facility] 2023-11-22 14:54:18 Faby [facility] HB ECG ROUTINE & RHYTHM STRIP 2023-11-22 14:28:42 [facility] HB ECG ROUTINE & RHYTHM STRIP 2023-11-22 14:28:42 Louise [facility] COMP. METABOLIC PANEL ([id number]) 2023-11-22 14:26:00 Uli [facility] IRON PANEL 2023-11-22 14:26:00 Uli [facility] LACTIC ACID WHOLE BLOOD 2023-11-22 14:26:00 Faby [facility] COMP. METABOLIC PANEL ([id number]) 2023-11-22 14:26:00 Uli [facility] IRON PANEL 2023-11-22 14:26:00 Uli [facility] LACTIC ACID WHOLE BLOOD 2023-11-22 14:26:00 Faby [facility] POCT GLUCOSE (AUTOMATED) 2023-11-22 13:26:00 Ignacio [facility] POCT GLUCOSE (AUTOMATED) 2023-11-22 13:26:[address] [facility] [address] CHEST PULMONARY ANGIOGRAM 2023-11-22 13:10:36 Uli [facility] CT CHEST PULMONARY ANGIOGRAM 2023-11-22 13:10:36 Uli [facility] PHOSPHORUS 2023-11-22 11:45:00 Uli [facility] CREATINE KINASE 2023-11-22 11:45:00 [facility] FERRITIN SERUM 2023-11-22 11:45:00 Uli [facility] TROPONIN I 2023-11-22 11:45:00 Uli [facility] LIPID PANEL ([id number])(TOTAL CHOLESTEROL, TRIGLYCERIDES, HDL) 2023-11-22 11:45:00 Uli [facility] CBC WITH DIFF 2023-11-22 11:45:00 Uli [facility] GLYCOSYLATED HEMOGLOBIN (A1C) 2023-11-22 11:45:00 Uli [facility] PHOSPHORUS 2023-11-22 11:45:00 Uli [facility] CREATINE KINASE 2023-11-22 11:45:00 Janeth Gil [facility] FERRITIN SERUM 2023-11-22 11:45:00 Uil [facility] TROPONIN I 2023-11-22 11:45:00 Uli [facility] LIPID PANEL ([id number])(TOTAL CHOLESTEROL, TRIGLYCERIDES, HDL) 2023-11-22 11:45:00 Uli [facility] CBC WITH DIFF 2023-11-22 11:45:00 Uli [facility] GLYCOSYLATED HEMOGLOBIN (A1C) 2023-11-22 11:45:00 Uli [facility] BLOOD CULTURE SCREEN 2023-11-22 09:37:00 Uli, [facility] BLOOD CULTURE SCREEN 2023-11-22 09:37:00 Uli [facility] BLOOD CULTURE SCREEN 2023-11-22 09:36:00 Uli [facility] BLOOD CULTURE SCREEN 2023-11-22 09:36:00 Uli [facility] US LOWER EXTREMITY VEIN WITH COMPRESSION BILATERAL (ONLY FOR RULE OUT DVT) 2023-11-22 08:09:01 Uli [facility] US LOWER EXTREMITY VEIN WITH COMPRESSION BILATERAL (ONLY FOR RULE OUT DVT) 2023-11-22 08:09:01 Uli [facility] LACTIC ACID WHOLE BLOOD 2023-11-22 08:03:00 Uli [facility] LACTIC ACID WHOLE BLOOD 2023-11-22 08:03:00 Uli [facility] MAGNESIUM 2023-11-22 08:02:00 Uli [facility] TROPONIN I 2023-11-22 08:02:00 Uli [facility] PROTHROMBIN TIME / INR 2023-11-22 08:02:00 Uli [facility] D-DIMER 2023-11-22 08:02:00 Uli [facility] ACTIVATED PARTIAL THRMPLAS DAVID 2023-11-22 08:02:00 Uli, [facility] PROCALCITONIN 2023-11-22 08:02:00 Uli, [facility] MAGNESIUM 2023-11-22 08:02:00 Uli, [facility] TROPONIN I 2023-11-22 08:02:00 Uli, [facility] PROTHROMBIN TIME / INR 2023-11-22 08:02:00 Uli, [facility] D-DIMER 2023-11-22 08:02:00 Uli, [facility] ACTIVATED PARTIAL THRMPLAS DAVID 2023-11-22 08:02:00 Uli, [facility] PROCALCITONIN 2023-11-22 08:02:00 Uli, [facility] XR SHOULDER 2+ VW RIGHT 2023-11-22 07:33:00 Uli, [facility] XR SHOULDER 2+ VW RIGHT 2023-11-22 07:33:00 Uli, [facility] URINALYSIS 2023-11-22 04:33:00 Megan Rondon [facility] URINE DRUG (IMMUNOASSAY) - COMPREHENSIVE DRUG SCREEN W/O REFLEX 2023-11-22 04:33:00 Megan Rondon [facility] URINALYSIS 2023-11-22 04:33:00 Megan Rondon [facility] URINE DRUG (IMMUNOASSAY) - COMPREHENSIVE DRUG SCREEN W/O REFLEX 2023-11-22 04:33:00 Megan Rondon [facility] PROTHROMBIN TIME / INR 2023-11-22 04:25:00 Megan Rondon [facility] ACTIVATED PARTIAL THRMPLAS DAVID 2023-11-22 04:25:00 Megan Rondon [facility] PROTHROMBIN TIME / INR 2023-11-22 04:25:00 Megan Rondon [facility] ACTIVATED PARTIAL THRMPLAS DAVID 2023-11-22 04:25:00 Megan Rondon [facility] CRITICAL CARE 2023-11-22 04:18:14 Megan Rondon [facility] CRITICAL CARE 2023-11-22 04:18:14 Megan Rondon [facility] FREE T4 2023-11-22 02:57:00 Megan Rondon [facility] THYROID STIMULATING HORMONE 2023-11-22 02:57:00 [facility]/B 2023-11-22 02:57:00 [facility] COVID-19 (ID NOW RAPID TESTING) 2023-11-22 02:57:00 [facility] ONLY COVID INTERPRETATION 2023-11-22 02:57:00 [facility] T4 2023-11-22 02:57:00 [facility] THYROID STIMULATING HORMONE 2023-11-22 02:57:00 [facility] RAPID INFLUENZA A/B 2023-11-22 02:57:00 [facility] COVID-19 (ID NOW RAPID TESTING) 2023-11-22 02:57:00 Megan Rondon [facility] LAB ONLY COVID INTERPRETATION 2023-11-22 02:57:00 [facility] AMYLASE 2023-11-22 02:52:00 [facility] LIPASE 2023-11-22 02:52:00 Alcon [facility] TROPONIN I 2023-11-22 02:52:00 Alcon [facility] COMP. METABOLIC PANEL ([id number]) 2023-11-22 02:52:00 Megan Rondon [facility] CBC WITH DIFF 2023-11-22 02:52:00 [facility] N-TERMINAL PRO-BNP 2023-11-22 02:52:00 Megan Rondon [facility] AMYLASE 2023-11-22 02:52:00 [facility] LIPASE 2023-11-22 02:52:00 [facility] TROPONIN I 2023-11-22 02:52:00 [facility] COMP. METABOLIC PANEL ([id number]) 2023-11-22 02:52:00 Megan Rondon [facility] CBC WITH DIFF 2023-11-22 02:52:00 Megan Rondon [facility] N-TERMINAL PRO-BNP 2023-11-22 02:52:00 Megan Rondon [facility] XR CHEST 1 VW 2023-11-22 02:34:13 Megan Rondon [facility] XR CHEST 1 VW 2023-11-22 02:34:13 Megan Rondon [facility] HB ECG ROUTINE & RHYTHM STRIP 2023-11-22 02:16:24 Megan Rondon [facility] POCT-GLUCOSE METER 2023-09-08 08:40:00 Bud [facility] CBC W/PLT COUNT & AUTO DIFFERENTIAL 2023-09-08 04:16[facility]00 [facility] 2023-09-08 04:[facility]23-09-08 04:16[facility]00 [facility] 2023-09-08 04:16[facility]00 [facility] W/PLT COUNT & AUTO DIFFERENTIAL 2023-09-08 04:16:00 [facility] POCT-GLUCOSE METER 2023-09-07 21:29:00 Bud [facility] XR KNEE 3 VIEWS LEFT 2023-09-07 19:[facility]02 [facility] LEGS BILATERAL 2023-09-07 12:45:00 [facility] CBC W/PLT COUNT & AUTO DIFFERENTIAL 2023-09-07 03:17:00 [facility]OLIC [facility]EL 2023-09-07 03:17:00 [facility] 2023-09-07 03:17:00 [facility] 2023-09-07 03:17:00 [facility] CBC W/PLT COUNT & AUTO DIFFERENTIAL 2023-09-07 03:17:00 [facility] POCT-GLUCOSE METER 2023-09-06 21:17:00 Bud [facility] POCT-GLUCOSE METER 2023-09-06 18:37:00 Bud [facility] POCT-GLUCOSE METER 2023-09-06 13:16:00 Bud [facility] POCT-GLUCOSE METER 2023-09-06 08:21:00 Bud [facility] CBC W/PLT COUNT & AUTO DIFFERENTIAL 2023-09-06 04:49:00 Joshua [facility] BASIC METABOLIC PANEL 2023-09-06 04:49:00 Joshua [facility] MAGNESIUM 2023-09-06 04:49:00 Joshua [facility] PHOSPHORUS 2023-09-06 04:49:00 Joshua [facility] CBC W/PLT COUNT & AUTO DIFFERENTIAL 2023-09-06 04:49:00 Joshua [facility] POCT-GLUCOSE METER 2023-09-05 21:24:00 Bud [facility] MR BRAIN WITH & WITHOUT IV CONTRAST 2023-09-05 11:25:07 Sandi Aleman [facility] POCT-GLUCOSE METER 2023-09-05 08:10:00 [facility] W/PLT COUNT & AUTO DIFFERENTIAL 2023-09-05 04:44:00 Joshua [facility] BASIC METABOLIC PANEL 2023-09-05 04:44:00 Joshua [facility] MAGNESIUM 2023-09-05 04:44:00 Joshua [facility] PHOSPHORUS 2023-09-05 04:44:00 Joshua [facility] POCT-GLUCOSE METER 2023-09-05 04:44:00 Lisandra [facility] CBC W/PLT COUNT & AUTO DIFFERENTIAL 2023-09-05 04:44:00 Joshua [facility] POCT-GLUCOSE METER 2023-09-04 21:38:00 Lisandra [facility] POCT-GLUCOSE METER 2023-09-04 15:42[facility]00 [facility]RSV RT-PCR 2023-09-04 11:25:00 Uli [facility] POCT-GLUCOSE METER 2023-09-04 10:53:00 Sabas [facility] POCT-GLUCOSE METER 2023-09-04 08:04[facility] 2023-09-04 06:56:00 Uli [facility] IRON, TIBC, % SAT. (WITHOUT FERRITIN) 2023-09-04 06:56:00 Uli [facility] FERRITIN 2023-09-04 06:56:00 Uli [facility] BLOOD CULTURE 2023-09-04 06:37:00 [facility] MR LUMBAR SPINE WITHOUT IV CONTRAST 2023-09-04 05:47:25 [facility] MR THORACIC SPINE WITHOUT IV CONTRAST 2023-09-04 04:53:00 [facility] MR CERVICAL SPINE WITHOUT IV CONTRAST 2023-09-04 04:18:[address] [facility] [address] THORACIC SPINE WITHOUT IV CONTRAST 2023-09-04 03:08:00 [facility] CT LUMBAR SPINE WITHOUT IV CONTRAST 2023-09-04 03:08:00 Randall [facility] LACTIC ACID, VENOUS 2023-09-04 01:42:00 Monroe [facility] TYPE AND SCREEN, AUTOMATED 2023-09-04 01:42:00 [place] [facility] CBC W/PLT COUNT & AUTO DIFFERENTIAL 2023-09-04 00:51:00 [facility] COMPREHENSIVE METABOLIC PANEL 2023-09-04 00:51:00 [facility] MAGNESIUM 2023-09-04 00:51:00 [facility] PHOSPHORUS 2023-09-04 00:51:00 [facility] PROTHROMBIN TIME/INR 2023-09-04 00:51:00 [facility] APTT 2023-09-04 00:51:00 [facility] B-TYPE NATRIURETIC FACTOR (BNP) 2023-09-04 00:51:00 [facility] URINALYSIS WITHOUT MICROSCOPIC 2023-09-04 00:51:00 [facility] RAPID DRUG SCREEN, URINE 2023-09-04 00:51:00 [facility] D-DIMER 2023-09-04 00:51:00 London Loyola [facility] FIBRINOGEN 2023-09-04 00:51:00 Jorge Pereira [facility] CBC W/PLT COUNT & AUTO DIFFERENTIAL 2023-09-04 00:51:00 [facility] EKG-SCANNED 2023-09-04 00:00:00 Provider, Default Scanning [facility] LACTIC ACID WHOLE BLOOD 2023-08-12 20:31:00 Mj Bryan [facility] COMP. METABOLIC PANEL ([id number]) 2023-08-12 20:29:00 Mj Bryan [facility] CBC WITH DIFF 2023-08-12 20:29:00 Mj Bryan [facility] CONSENT/REFUSAL FOR DIAGNOSI S AND TREATMENT 2023-08-12 19:43:16 Doctor Unassigned, Olyphant [facility] TRANSESOPHAGEAL ECHO 2023-06-16 11:05:00 Aydee Go [facility] T SPOT TB 2023-06-15 04:51:00 Lauren Blair [facility] FUNGITELL R B-D-GLUCAN WITH REFLEX TO TITER 2023-06-15 04:51:00 Lauren Blair [facility] ASPERGILLUS GALACTOMANNAN ANTIGEN 2023-06-15 04:51:00 Rossy deisytn Raul [facility] VANCOMYCIN LEVEL, TROUGH 2023-06-15 04:51:00 Kaylene Mendosa [facility] T-SPOT(R).TB (QUEST) 2023-06-15 04:27:00 Provider, Not In System [facility] T-SPOT(R).TB (QUEST) 2023-06-15 04:27:00 System, Provider Not In [facility] ECHO W CONTRAST & DOPPLER 2023-06-14 09:22:00 [facility] HEMOGLOBIN A1C 2023-06-14 04:08:00 Marianela Burgess [facility] CBC (HEMOGRAM ONLY) 2023-06-14 04:08:00 [facility] BASIC METABOLIC PANEL 2023-06-14 04:08:00 [facility] CRYPTOCOCCAL ANTIGEN 2023-06-13 17:21:00 Lauren Blair [facility] HC LAB HIV-1 AG W/HIV-1&2 AB 2023-06-13 17:21:00 Lauren Blair [facility] VENOUS DOPPLER ARM, LEFT 2023-06-13 17:20:00 Marianela Burgess [facility] LEGIONELLA ANTIGEN, URINE 2023-06-13 17:00:00 [facility] SPUTUM CULTURE + GRAM STAIN 2023-06-13 14:33:00 [facility] MR LUMBAR SPINE WITH & WITHOUT IV CONTRAST 2023-06-13 13:03:47 Burt Nelson [facility] ECG 12-LEAD 2023-06-13 11:47:02 [facility] ECG 12-LEAD 2023-06-13 11:47:02 Unknown, Hl7 Doctor [facility] ECG 12-LEAD 2023-06-13 11:47:02 Unknown, Hl7 Doctor [facility] MRSA SCREEN 2023-06-13 09:19:00 [facility] CBC W/PLT COUNT & AUTO DIFFERENTIAL 2023-06-13 06:03:00 Marianela Burgess [facility] COMPREHENSIVE METABOLIC PANEL 2023-06-13 06:03:00 Marianela Burgess [facility] PROTHROMBIN TIME/INR 2023-06-13 06:03:00 [facility] CREATINE KINASE (CK) 2023-06-13 06:03:00 Abbi Nazariocory [facility] CBC W/PLT COUNT & AUTO DIFFERENTIAL 2023-06-13 06:03:00 [facility] BLOOD CULTURE 2023-06-13 06:02:00 [facility] CBC W/PLT COUNT & AUTO DIFFERENTIAL 2023-06-02 04:41:00 Kimberley [facility] BASIC METABOLIC PANEL 2023-06-02 04:41:00 Kimberley [facility] MAGNESIUM 2023-06-02 04:41:00 Kimberley [facility] PHOSPHORUS 2023-06-02 04:41:00 Kimberley [facility] CBC W/PLT COUNT & AUTO DIFFERENTIAL 2023-06-02 04:41:00 Kimberley [facility] XR SPINE LUMBAR 1 VIEW 2023-06-01 10:31:00 [facility] XR SPINE LUMBAR 1 VIEW 2023-06-01 09:46:00 [facility] LAMINECTOMY, SPINE, LUMBAR 2023-06-01 09:10:00 [facility] PROCEDURE W/ C-ARM 2023-06-01 09:10:00 [facility] LAMINECTOMY, SPINE, LUMBAR 2023-06-01 07:30:00 [facility] PROCEDURE W/ C-ARM 2023-06-01 07:30:00 [facility] SCREEN, URINE 2023-06-01 04:33:00 [facility] BASIC METABOLIC PANEL 2023-05-31 22:55:00 Dallas Gomez [facility] CBC W/PLT COUNT & AUTO DIFFERENTIAL 2023-05-31 22:55:00 Dallas Gomez [facility] PT/APTT 2023-05-31 22:55:00 GomezDallas [facility] CBC W/PLT COUNT & AUTO DIFFERENTIAL 2023-05-31 22:55:00 Patricia Dallas Cory [facility] CT NECK SOFT TISSUE WITHOUT IV CONTRAST 2023-05-31 09:39:30 [facility] TYPE AND SCREEN, AUTOMATED 2023-05-31 09:13:00 [facility] BASIC METABOLIC PANEL 2023-05-29 06:43:00 [facility] CBC W/PLT COUNT & AUTO DIFFERENTIAL 2023-05-29 06:43:00 [facility] CBC W/PLT COUNT & AUTO DIFFERENTIAL 2023-05-29 06:43:00 [facility] XR SPINE CERVICAL 2 OR 3 VIEWS 2023-05-28 18:57:00 [facility] FL FLUORO NON-SPECIFIC UP TO 1 HOUR 2023-05-28 10:48:00 [place] [facility] FL FLUORO NON-SPECIFIC UP TO 1 HOUR 2023-05-28 10:07:00 [place] [facility] DISCECTOMY, SPINE, CERVICAL, ANTERIOR APPROACH, WITH FUSION 2023-05-28 08:15:00 Jose [facility] INSERTION, HARDWARE, SPINAL 2023-05-28 08:15:00 Jose [facility] PROCEDURE, ALLOGRAFT, FOR SPINE SURGERY 2023-05-28 08:15:00 Jose [facility] AUTOGRAFT FOR SPINE SURGERY 2023-05-28 08:15:00 [place] Adi [facility] PROCEDURE W/ C-ARM 2023-05-28 08:15:00 [place] [facility] NEUROPHYSIOLOGIC MONITORING, INTRAOPERATIVE 2023-05-28 08:15:00 Jose Adam [facility] PROCEDURE, USING OPERATING MICROSCOPE 2023-05-28 08:15:00 Adam Garcia [facility] HCG, QUANTITATIVE, 2023-05-28 07:42:00 Yue Bui [facility] TYPE AND SCREEN, AUTOMATED 2023-05-28 07:42:00 Quin Scruggs [facility] XR CHEST 1 VIEW PORTABLE / BEDSIDE 2023-04-01 15:32:16 [facility] B-TYPE NATRIURETIC FACTOR (BNP) 2023-04-01 13:32:00 Thomas [facility] ECHO W CONTRAST & DOPPLER 2023-03-31 20:18:37 Jasen [facility] MR CERVICAL SPINE WITHOUT IV CONTRAST 2023-03-31 09:25:00 Edward Lewis [facility] CBC (HEMOGRAM ONLY) 2023-03-31 03:[facility] 2023-03-31 03:45:00 Jasen [facility] ARTERIAL DOPPLER LEGS BILATERAL 2023-03-30 15:45:00 [facility] ([facility]HA[facility] W/ DOPPLER) ONLY 2023-03-30 15:44[facility] 12-LEAD 2023-03-30 13:06:22 [facility] ECG 12-LEAD 2023-03-30 13:06:22 Unknown, Hl7 [facility] MR THORACIC SPINE WITHOUT IV CONTRAST 2023-03-30 12:29:58 Eric [facility] MR LUMBAR SPINE WITHOUT IV CONTRAST 2023-03-30 11:58:00 [facility] AWAKE AND DROWSY 2023-03-30 09:57:53 Berry [facility] VALPROIC ACID LEVEL, TOTAL 2023-03-30 09:06:00 Liudmila Smart [facility] URINALYSIS W/ REFLEX URINE CULTURE 2023-03-30 03:54:00 Gloria Reyes [facility] CBC (HEMOGRAM ONLY) 2023-03-30 03:52:00 Mariah Aldridge [facility] COMPREHENSIVE METABOLIC PANEL 2023-03-30 03:52:00 Mariah Aldridge [facility] HEMOGLOBIN A1C 2023-03-30 03:52:00 Mariah Aldridge [facility] PT/APTT 2023-03-30 03:52:00 Thomas Lozoya [facility] EKG-SCANNED 2023-03-29 00:00:00 Provider, Default Scanning [facility] CT HEAD WO CONTRAST 2022-12-11 18:36:49 Alfonso Alvarado [facility] URINE DRUG (IMMUNOASSAY) - COMPREHENSIVE DRUG SCREEN 2022-12-11 17:13:00 Alfonso Alvarado Lorelei [facility] URINALYSIS 2022-12-11 17:13:00 Alfonso Alvarado [facility] CT CHEST PULMONARY ANGIOGRAM 2022-12-11 16:26:39 Alfonso Alvarado [facility] MAGNESIUM 2022-12-11 14:57:00 Alfonso Alvarado Lorelei [facility] COMP. METABOLIC PANEL ([id number]) 2022-12-11 14:57:00 Alfonso Alvarado Lorelei [facility] D-DIMER 2022-12-11 14:15:00 Alfonso Alvarado Lorelei [facility] XR CHEST 1 VW 2022-12-11 14:10:26 Alfonso Alvarado [facility] TROPONIN I 2022-12-11 14:02:00 Alfonso Alvarado Lorelei [facility] CBC WITH DIFF 2022-12-11 14:02:00 Alfonso Alvarado Lorelei [facility] N-TERMINAL PRO-BNP 2022-12-11 14:02:00 Alfonso Alvarado Lorelei [facility] HB ECG ROUTINE & RHYTHM STRIP 2022-12-11 14:01:08 Alfonso Alvarado Lorelei [facility] CONSENT/REFUSAL FOR DIAGNOSI S AND TREATMENT 2022-12-11 13:52:01 Doctor Unassigned, Olyphant [facility] ECG 12-LEAD 2022-08-03 05:03:32 Unknown, Hl7 Doctor [facility] ECG 12-LEAD 2022-08-03 05:03:32 Unknown, Hl7 [facility] LIPID PANEL 2022-08-02 21:14:00 [facility] TSH/FREE T4 IF INDICATED 2022-08-02 21:14:00 [facility] VITAMIN B12 2022-08-02 21:14:00 [facility] HEMOGLOBIN A1C 2022-08-02 21:14:00 [facility] COMPREHENSIVE METABOLIC PANEL 2022-08-02 21:14:00 [facility] CBC W/PLT COUNT & AUTO DIFFERENTIAL 2022-08-02 21:14:00 [facility] RPR 2022-08-02 21:14:00 [facility] HC LAB HIV-1 AG W/HIV-1&2 AB 2022-08-02 21:14:00 [facility] C-REACTIVE PROTEIN 2022-08-02 21:14:00 [facility] CBC W/PLT COUNT & AUTO DIFFERENTIAL 2022-08-02 21:14:00 [facility] EKG-SCANNED 2022-08-02 00:00:00 Provider, Default Scanning [facility] CT HEAD WO CONTRAST 2022-08-01 23:52:15 Dami Lowry [facility] GALV ONLY - INFLUENZA A B RS V PCR 2022-08-01 18:28:00 Letitia Chambers [facility] TRANSTHORACIC ECHO (TTE) COMPLETE W/ CONTRAST 2022-08-01 14:42:00 Kylee Montez [facility] MAGNESIUM 2022-08-01 10:42:00 Dami Lowry [facility] BASIC METABOLIC PANEL (NA, K , CL, CO2, GLUCOSE, BUN, CREATININE, CA) 2022-08-01 10:42:00 Dami Lowry [facility] CBC WITH DIFF 2022-08-01 10:42[facility] 2022-08-01 10:42:00 Kylee Montez [facility] POCT GLUCOSE (AUTOMATED) 2022-08-01 06:56[facility]00 [facility] 2022-07-31 22:31:36 [facility] URINALYSIS 2022-07-31 20:52:00 [facility] URINE DRUG (IMMUNOASSAY) - COMPREHENSIVE DRUG SCREEN W/O REFLEX 2022-07-31 20:52:00 [facility] XR CHEST 1 VW 2022-07-31 18:45:17 [facility] LIPASE 2022-07-31 17:58:00 [facility] TROPONIN I 2022-07-31 17:58:00 [facility] COMP. METABOLIC PANEL ([id number]) 2022-07-31 17:58:00 [facility] CBC WITH DIFF 2022-07-31 17:58:00 [facility] PROTHROMBIN TIME / INR 2022-07-31 17:58:00 [facility] ACTIVATED PARTIAL THRMPLAS DAVID 2022-07-31 17:58:00 [facility] N-TERMINAL PRO-BNP 2022-07-31 17:58:00 [facility] HB ECG ROUTINE & RHYTHM STRIP 2022-07-31 17:46:28 [facility] NOTICE OF PRIVACY PRACTICES 2022-07-31 17:35:38 Doctor Unassigned, Olyphant [facility] CONSENT/REFUSAL FOR DIAGNOSI S AND TREATMENT 2022-07-31 17:35:13 Doctor Unassigned, Olyphant [facility] PHOSPHORUS 2022-05-08 05:51:00 Shefali Azeem [facility] MAGNESIUM 2022-05-08 05:51:00 Shefali [facility] BASIC METABOLIC PANEL (NA, K , CL, CO2, GLUCOSE, BUN, CREATININE, CA) 2022-05-08 05:51:00 Shefali [facility] CBC WITH DIFF 2022-05-08 05:51:00 Shefali Azeem [facility] BASIC METABOLIC PANEL (NA, K , CL, CO2, GLUCOSE, BUN, CREATININE, CA) 2022-05-07 07:09:00 John Cintron [facility] CBC WITH DIFF 2022-05-07 07:09:00 John Cintron [facility] POCT GLUCOSE (AUTOMATED) 2022-05-07 01:16:00 Brandyn Ibrahim [facility] HB ABO GROUPING 2022-05-06 05:07:00 [facility] (NA, K , CL, CO2, GLUCOSE, BUN, CREATININE, CA) 2022-05-06 05:04:00 Shefali [facility] CBC WITH DIFF 2022-05-06 05:04:00 Shefali [facility] KEPPRA (LEVETIRACETAM) 2022-05-06 05:04:00 Shefali [facility] MR LUMBAR SPINE WO CONTRAST 2022-05-06 02:54:37 Ender Monet [facility] ELECTROENCEPHALOGRAM 2022-05-06 00:00:00 John Cintron [facility] BASIC METABOLIC PANEL (NA, K , CL, CO2, GLUCOSE, BUN, CREATININE, CA) 2022-05-05 07:57:00 Ismael Dunn [facility] CBC WITH DIFF 2022-05-05 07:57:00 Ismael Dunn [facility] PROTHROMBIN TIME / INR 2022-05-05 07:57:00 Ismael Dunn [facility] ACTIVATED PARTIAL THRMPLAS DAVID 2022-05-05 07:57:00 Ismael Dunn [facility] FIBRINOGEN 2022-05-05 07:57:00 Ismael Dunn [facility] EMERGENCY SERVICES AGREEMENT S AND AUTHORIZATIONS 2022-05-04 05:01:00 Doctor Unassigned, Olyphant [facility] VITAMIN D, 25-OH 2022-04-15 16:53:00 Sen Toledo [facility] MR THORACIC SPINE WO CONTRAST 2022-04-15 11:56:19 [facility] MR CERVICAL SPINE WO CONTRAST 2022-04-15 11:20:00 [facility] BASIC METABOLIC PANEL (NA, K , CL, CO2, GLUCOSE, BUN, CREATININE, CA) 2022-04-15 10:36:00 Charmaine Morataya [facility] TEST, URINE 2022-04-15 04:39:00 [facility] URINE DRUG (IMMUNOASSAY) - COMPREHENSIVE DRUG SCREEN 2022-04-15 04:39:00 [facility] URINALYSIS 2022-04-15 04:39:00 [facility] TRANSTHORACIC ECHO (TTE) COMPLETE W/ CONTRAST 2022-04-14 16:37:03 [facility] KEPPRA (LEVETIRACETAM) 2022-04-14 15:30:00 [facility] MAGNESIUM 2022-04-14 10:03:00 [facility] BASIC METABOLIC PANEL (NA, K , CL, CO2, GLUCOSE, BUN, CREATININE, CA) 2022-04-14 10:03:00 [facility] MR LUMBAR SPINE WO CONTRAST 2022-04-14 02:48:12 [facility] MR STROKE BRAIN WO CONTRAST 2022-04-14 02:29:[address] [facility] [address] STROKE ANGIOGRAM HEAD 2022-04-13 18:40:00 Sapna Vargas [facility] CT STROKE ANGIOGRAM NECK 2022-04-13 18:40:00 Sapna Vargas [facility] CT STROKE HEAD WO CONTRAST 2022-04-13 18:36:00 Sapna Vargas [facility] TROPONIN I 2022-04-13 18:17:00 Sapna Vargas [facility] THYROID STIMULATING HORMONE 2022-04-13 18:17:00 Soumya Chua [facility] BASIC METABOLIC PANEL (NA, K , CL, CO2, GLUCOSE, BUN, CREATININE, CA) 2022-04-13 18:17:00 Sapna Vargas [facility] LIPID PANEL ([id number])(TOTAL CHOLESTEROL, TRIGLYCERIDES, HDL) 2022-04-13 18:17:00 Harshil Soumya [facility] CBC WITHOUT DIFF 2022-04-13 18:17:00 Sapna Vargas [facility] GLYCOSYLATED HEMOGLOBIN (A1C) 2022-04-13 18:17:00 Harshil Soumya [facility] PROTHROMBIN TIME / INR 2022-04-13 18:17:00 Sapna Vargas [facility] ACTIVATED PARTIAL THRMPLAS DAVID 2022-04-13 18:17:00 Sapna Vargas [facility] COVID-19 (ID NOW RAPID TESTING) 2022-04-13 18:17:00 Sapna Vargas [facility] LAB ONLY COVID INTERPRETATION 2022-04-13 18:17:00 Sapna Vargas [facility] HB ECG ROUTINE & RHYTHM STRIP 2022-04-13 18:15:49 Sapna Vargas [facility] CONSENT/REFUSAL FOR DIAGNOSI S AND TREATMENT 2022-04-13 18:05:14 Doctor Unassigned, Olyphant [facility] HOSPITAL ADMISSION 2022-04-13 05:01:00 Doctor Unassigned, Olyphant [facility] SARS-COV-2 COVID-19 VACCINE 12 YRS+,0.3ML,IM (PFIZER - [facility]) 2022-02-19 15:21:12 Doctor Unassigned, Olyphant [facility] URINE DRUG (IMMUNOASSAY) - COMPREHENSIVE DRUG SCREEN W/O REFLEX 2021-11-23 21:21:00 Williams Virk [facility] CT HEAD WO CONTRAST 2021-11-23 20:58:00 Williams Virk [facility] POCT TEST 2021-11-23 20:46:00 Williams Virk [facility] URINALYSIS 2021-11-23 20:43:00 Williams Virk [facility] LIPASE 2021-11-23 20:27:00 Williams Virk [facility] TROPONIN I 2021-11-23 20:27:00 Williams Virk [facility] COMP. METABOLIC PANEL ([id number]) 2021-11-23 20:27:00 Williams Virk [facility] CBC WITH DIFF 2021-11-23 20:27:00 Williams Virk [facility] POCT GLUCOSE (AUTOMATED) 2021-11-23 20:15:00 Doctor Unassigned, Olyphant [facility] SARS-COV-2 COVID-19 VACCINE,0.3ML,IM (PFIZER) 2021-05-24 14:23:12 Doctor Unassigned, Olyphant [facility] SARS-COV-2 COVID-19 VACCINE,0.3ML,IM (PFIZER) 2021-05-03 14:59:29 Doctor Unassigned, Olyphant [facility] EMERGENCY SERVICES AGREEMENT S AND AUTHORIZATIONS 2021-04-16 05:01:00 Doctor Unassigned, Olyphant [facility] URINALYSIS 2021-03-17 03:09:00 Fabrice Chakraborty [facility] XR CHEST 1 VW 2021-03-17 01:45:07 [facility] TROPONIN I 2021-03-17 01:35:00 Fabrice Chakraborty [facility] COMP. METABOLIC PANEL ([id number]) 2021-03-17 01:35:00 Fabrice Chakraborty [facility] CBC WITH DIFF 2021-03-17 01:35:00 [facility] N-TERMINAL PRO-BNP 2021-03-17 01:35:00 [facility] COVID-19 (ID NOW RAPID TESTING) 2021-03-17 00:58:00 Mj Bryan [facility] CONSENT/REFUSAL FOR DIAGNOSI S AND TREATMENT 2021-03-17 00:32:59 Doctor Unassigned, Olyphant [facility] COVID-19 (ID NOW RAPID TESTING) 2021-02-19 17:04:00 Estefania Monroy [facility] CT ABDOMEN PELVIS W CONTRAST 2021-02-19 16:41:18 Estefania Monroy [facility] LIPASE 2021-02-19 15:58:00 Estefania Monroy [facility] COMP. METABOLIC PANEL ([id number]) 2021-02-19 15:58:00 Estefania Monroy [facility] CBC WITH DIFF 2021-02-19 15:58:00 Estefania Monroy [facility] URINALYSIS 2021-02-19 15:58:00 Estefania Monroy [facility] NOTICE OF PRIVACY PRACTICES 2021-02-19 15:30:46 Doctor Unassigned, Olyphant [facility] CONSENT/REFUSAL FOR DIAGNOSI S AND TREATMENT 2021-02-19 15:30:30 Doctor Unassigned, Olyphant [facility] Plan of Care Planned Activity Planned Date Details Comments Source Future Scheduled Test 2025-08-02 00:00:00 Lipid panel (procedure) [code = 75419400] [facility] Future Scheduled Test 2025-08-02 00:00:00 Lipid panel (procedure) [code = 86750188] [facility] Future Scheduled Test 2025-08-02 00:00:00 Lipid panel (procedure) [code = 00109480] [facility] Future Scheduled Test 2025-08-02 00:00:00 Lipid panel (procedure) [code = 83394575] [facility] Future Scheduled Test 2025-08-02 00:00:00 Lipid panel (procedure) [code = [id number]] [facility] Future Scheduled Test 2025-08-02 00:00:00 Lipid panel (procedure) [code = 35032837] [facility] Future Scheduled Test 2025-08-02 00:00:00 Lipid panel (procedure) [code = 77360031] [facility] Future Scheduled Test 2025-08-02 00:00:00 Lipid panel (procedure) [code = 93328108] [facility] Future Scheduled Test 2025-08-02 00:00:00 Lipid panel (procedure) [code = 24916022] [facility] Future Scheduled Test 2025-08-02 00:00:00 Lipid panel (procedure) [code = [id number]] [facility] Future Scheduled Test 2025-08-02 00:00:00 Lipid panel (procedure) [code = 60986273] [facility] Future Scheduled Test 2025-08-02 00:00:00 Lipid panel (procedure) [code = 83980120] [facility] Future Scheduled Test 2025-08-02 00:00:00 Lipid panel (procedure) [code = 97471031] [facility] Future Scheduled Test 2025-08-02 00:00:00 Lipid panel (procedure) [code = 71822538] [facility] Future Scheduled Test 2025-08-02 00:00:00 Lipid panel (procedure) [code = 37569308] [facility] Future Scheduled Test 2025-08-02 00:00:00 Lipid panel (procedure) [code = 69996135] [facility] Future Scheduled Test 2025-08-02 00:00:00 Lipid panel (procedure) [code = 28693914] [facility] Future Scheduled Test 2025-08-02 00:00:00 Lipid panel (procedure) [code = 28717151] [facility] Future Scheduled Test 2025-08-02 00:00:00 Lipid panel (procedure) [code = 03237163] [facility] Future Scheduled Test 2025-08-02 00:00:00 Lipid panel (procedure) [code = 24555636] [facility] Future Scheduled Test 2025-08-02 00:00:00 Lipid panel (procedure) [code = 18859030] [facility] Future Scheduled Test 2025-08-02 00:00:00 Lipid panel (procedure) [code = 12462165] [facility] Future Scheduled Test 2025-08-02 00:00:00 Lipid panel (procedure) [code = 35490062] [facility] Future Scheduled Test 2025-08-02 00:00:00 Lipid panel (procedure) [code = 93292349] [facility] Future Scheduled Test 2025-08-02 00:00:00 Lipid panel (procedure) [code = [id number]] [facility] Future Scheduled Test 2025-08-02 00:00:00 Lipid panel (procedure) [code = 33233349] [facility] Future Scheduled Test 2025-08-02 00:00:00 Lipid panel (procedure) [code = 93037577] [facility] Future Scheduled Test 2025-08-02 00:00:00 Lipid panel (procedure) [code = 39432628] [facility] Future Scheduled Test 2025-08-02 00:00:00 Lipid panel (procedure) [code = 72950492] [facility] Future Scheduled Test 2025-08-02 00:00:00 Lipid panel (procedure) [code = 56573954] [facility] Future Scheduled Test 2025-08-02 00:00:00 Lipid panel (procedure) [code = 88012285] [facility] Future Scheduled Test 2025-08-02 00:00:00 Lipid panel (procedure) [code = 81518070] [facility] Future Scheduled Test 2025-08-02 00:00:00 Lipid panel (procedure) [code = 59930658] [facility] Future Scheduled Test 2025-08-02 00:00:00 Lipid panel (procedure) [code = 75669263] [facility] Future Scheduled Test 2025-08-02 00:00:00 Lipid panel (procedure) [code = 13330037] [facility] Future Scheduled Test 2025-08-02 00:00:00 Lipid panel (procedure) [code = 54234970] [facility] Future Scheduled Test 2025-08-02 00:00:00 Lipid panel (procedure) [code = 62906070] [facility] Future Scheduled Test 2025-08-02 00:00:00 Lipid panel (procedure) [code = 54037699] [facility] Future Scheduled Test 2025-08-02 00:00:00 Lipid panel (procedure) [code = 86985200] [facility] Future Scheduled Test 2025-08-02 00:00:00 Lipid panel (procedure) [code = 86143891] [facility] Future Scheduled Test 2025-08-02 00:00:00 Lipid panel (procedure) [code = 12841714] [facility] Future Scheduled Test 2025-08-02 00:00:00 Lipid panel (procedure) [code = 94219483] [facility] Future Scheduled Test 2025-08-02 00:00:00 Lipid panel (procedure) [code = 53267385] [facility] Future Scheduled Test 2025-08-02 00:00:00 Lipid panel (procedure) [code = 78268080] [facility] Future Scheduled Test 2025-08-02 00:00:00 Lipid panel (procedure) [code = 87487715] [facility] Future Scheduled Test 2025-08-02 00:00:00 Lipid panel (procedure) [code = 77980709] [facility] Future Scheduled Test 2025-08-02 00:00:00 Lipid panel (procedure) [code = 60374282] [facility] Future Scheduled Test 2025-08-02 00:00:00 Lipid panel (procedure) [code = 92869171] [facility] Future Scheduled Test 2025-08-02 00:00:00 Lipid panel (procedure) [code = 30932577] [facility] Future Scheduled Test 2025-08-02 00:00:00 Lipid panel (procedure) [code = 70440773] [facility] Future Scheduled Test 2025-08-02 00:00:00 Lipid panel (procedure) [code = 30306011] [facility] Future Scheduled Test 2025-08-02 00:00:00 Lipid panel (procedure) [code = 65999343] [facility] Future Scheduled Test 2025-08-02 00:00:00 Lipid panel (procedure) [code = 25645601] [facility] Future Scheduled Test 2025-08-02 00:00:00 Lipid panel (procedure) [code = 26496901] [facility] Future Scheduled Test 2025-08-02 00:00:00 Lipid panel (procedure) [code = 53367133] [facility] Future Scheduled Test 2025-08-02 00:00:00 Lipid panel (procedure) [code = 15899092] [facility] Future Scheduled Test 2025-08-02 00:00:00 Lipid panel (procedure) [code = 10465328] [facility] Future Scheduled Test 2025-08-02 00:00:00 Lipid panel (procedure) [code = 97333091] [facility] Future Scheduled Test 2025-08-02 00:00:00 Lipid panel (procedure) [code = 07865379] [facility] Future Scheduled Test 2025-08-02 00:00:00 Lipid panel (procedure) [code = 76802936] [facility] Future Scheduled Test 2025-08-02 00:00:00 Lipid panel (procedure) [code = 51349067] [facility] Future Scheduled Test 2025-08-02 00:00:00 Lipid panel (procedure) [code = 82590142] [facility] Future Scheduled Test 2025-08-02 00:00:00 Lipid panel (procedure) [code = 06352718] [facility] Future Scheduled Test 2025-08-02 00:00:00 Lipid panel (procedure) [code = 25254693] [facility] Future Scheduled Test 2025-08-02 00:00:00 Lipid panel (procedure) [code = 05927727] [facility] Future Scheduled Test 2025-08-02 00:00:00 Lipid panel (procedure) [code = 58605190] [facility] Future Scheduled Test 2025-08-02 00:00:00 Lipid panel (procedure) [code = [id number]] [facility] Future Scheduled Test 2025-08-02 00:00:00 Lipid panel (procedure) [code = 98442252] [facility] Future Scheduled Test 2025-08-02 00:00:00 Lipid panel (procedure) [code = 38269171] [facility] Future Scheduled Test 2025-08-02 00:00:00 Lipid panel (procedure) [code = 35809114] [facility] Future Scheduled Test 2024-05-28 00:00:00 Tobacco Cessation Counseling and Screening (12+) [code = Tobacco Cessation Counseling and Screening (12+)] [facility] Scheduled Test 2024-05-28 00:00:00 Tobacco Cessation Counseling and Screening (12+) [code = Tobacco Cessation Counseling and Screening (12+)] [facility] Scheduled Test 2024-05-28 00:00:00 Tobacco Cessation Counseling and Screening (12+) [code = Tobacco Cessation Counseling and Screening (12+)] [facility] Scheduled Test 2024-05-28 00:00:00 Tobacco Cessation Counseling and Screening (12+) [code = Tobacco Cessation Counseling and Screening (12+)] [facility] Scheduled Test 2024-05-28 00:00:00 Tobacco Cessation Counseling and Screening (12+) [code = Tobacco Cessation Counseling and Screening (12+)] [facility] Scheduled Test 2024-05-28 00:00:00 Tobacco Cessation Counseling and Screening (12+) [code = Tobacco Cessation Counseling and Screening (12+)] [facility] Scheduled Test 2024-05-28 00:00:00 Tobacco Cessation Counseling and Screening (12+) [code = Tobacco Cessation Counseling and Screening (12+)] [facility] Scheduled Test 2024-05-28 00:00:00 Tobacco Cessation Counseling and Screening (12+) [code = Tobacco Cessation Counseling and Screening (12+)] [facility] Scheduled Test 2024-05-28 00:00:00 Tobacco Cessation Counseling and Screening (12+) [code = Tobacco Cessation Counseling and Screening (12+)] [facility] Scheduled Test 2024-05-28 00:00:00 Tobacco Cessation Counseling and Screening (12+) [code = Tobacco Cessation Counseling and Screening (12+)] [facility] Scheduled Test 2024-05-28 00:00:00 Tobacco Cessation Counseling and Screening (12+) [code = Tobacco Cessation Counseling and Screening (12+)] [facility] Scheduled Test 2024-05-28 00:00:00 Tobacco Cessation Counseling and Screening (12+) [code = Tobacco Cessation Counseling and Screening (12+)] [facility] Scheduled Test 2024-05-28 00:00:00 Tobacco Cessation Counseling and Screening (12+) [code = Tobacco Cessation Counseling and Screening (12+)] [facility] Future Scheduled Test 2024-05-28 00:00:00 Tobacco Cessation Counseling and Screening (12+) [code = Tobacco Cessation Counseling and Screening (12+)] [facility] Scheduled Test 2024-05-28 00:00:00 Tobacco Cessation Counseling and Screening (12+) [code = Tobacco Cessation Counseling and Screening (12+)] [facility] Scheduled Test 2024-05-28 00:00:00 Tobacco Cessation Counseling and Screening (12+) [code = Tobacco Cessation Counseling and Screening (12+)] [facility] Scheduled Test 2024-05-28 00:00:00 Tobacco Cessation Counseling and Screening (12+) [code = Tobacco Cessation Counseling and Screening (12+)] [facility] Scheduled Test 2024-05-28 00:00:00 Tobacco Cessation Counseling and Screening (12+) [code = Tobacco Cessation Counseling and Screening (12+)] [facility] Scheduled Test 2024-05-28 00:00:00 Tobacco Cessation Counseling and Screening (12+) [code = Tobacco Cessation Counseling and Screening (12+)] [facility] Scheduled Test 2024-05-28 00:00:00 Tobacco Cessation Counseling and Screening (12+) [code = Tobacco Cessation Counseling and Screening (12+)] [facility] Scheduled Test 2024-05-28 00:00:00 Tobacco Cessation Counseling and Screening (12+) [code = Tobacco Cessation Counseling and Screening (12+)] [facility] Future Scheduled Test 2024-05-28 00:00:00 Tobacco Cessation Counseling and Screening (12+) [code = Tobacco Cessation Counseling and Screening (12+)] [facility] Future Scheduled Test 2024-05-28 00:00:00 Tobacco Cessation Counseling and Screening (12+) [code = Tobacco Cessation Counseling and Screening (12+)] [facility] Scheduled Test 2024-05-28 00:00:00 Tobacco Cessation Counseling and Screening (12+) [code = Tobacco Cessation Counseling and Screening (12+)] [facility] Scheduled Test 2024-05-28 00:00:00 Tobacco Cessation Counseling and Screening (12+) [code = Tobacco Cessation Counseling and Screening (12+)] [facility] Future Scheduled Test 2024-05-28 00:00:00 Tobacco Cessation Counseling and Screening (12+) [code = Tobacco Cessation Counseling and Screening (12+)] [facility] Scheduled Test 2024-05-28 00:00:00 Tobacco Cessation Counseling and Screening (12+) [code = Tobacco Cessation Counseling and Screening (12+)] [facility] Scheduled Test 2024-05-28 00:00:00 Tobacco Cessation Counseling and Screening (12+) [code = Tobacco Cessation Counseling and Screening (12+)] [facility] Scheduled Test 2024-05-28 00:00:00 Tobacco Cessation Counseling and Screening (12+) [code = Tobacco Cessation Counseling and Screening (12+)] [facility] Scheduled Test 2024-05-28 00:00:00 Tobacco Cessation Counseling and Screening (12+) [code = Tobacco Cessation Counseling and Screening (12+)] [facility] Scheduled Test 2024-05-28 00:00:00 Tobacco Cessation Counseling and Screening (12+) [code = Tobacco Cessation Counseling and Screening (12+)] [facility] Scheduled Test 2024-05-28 00:00:00 Tobacco Cessation Counseling and Screening (12+) [code = Tobacco Cessation Counseling and Screening (12+)] [facility] Scheduled Test 2024-05-28 00:00:00 Tobacco Cessation Counseling and Screening (12+) [code = Tobacco Cessation Counseling and Screening (12+)] [facility] Scheduled Test 2024-05-28 00:00:00 Tobacco Cessation Counseling and Screening (12+) [code = Tobacco Cessation Counseling and Screening (12+)] [facility] Scheduled Test 2024-05-28 00:00:00 Tobacco Cessation Counseling and Screening (12+) [code = Tobacco Cessation Counseling and Screening (12+)] [facility] Scheduled Test 2024-05-28 00:00:00 Tobacco Cessation Counseling and Screening (12+) [code = Tobacco Cessation Counseling and Screening (12+)] [facility] Scheduled Test 2024-05-28 00:00:00 Tobacco Cessation Counseling and Screening (12+) [code = Tobacco Cessation Counseling and Screening (12+)] [facility] Future Scheduled Test 2024-05-28 00:00:00 Tobacco Cessation Counseling and Screening (12+) [code = Tobacco Cessation Counseling and Screening (12+)] [facility] Future Scheduled Test 2024-05-28 00:00:00 Tobacco Cessation Counseling and Screening (12+) [code = Tobacco Cessation Counseling and Screening (12+)] [facility] Scheduled Test 2024-05-28 00:00:00 Tobacco Cessation Counseling and Screening (12+) [code = Tobacco Cessation Counseling and Screening (12+)] [facility] Scheduled Test 2024-05-28 00:00:00 Tobacco Cessation Counseling and Screening (12+) [code = Tobacco Cessation Counseling and Screening (12+)] [facility] Scheduled Test 2024-05-28 00:00:00 Tobacco Cessation Counseling and Screening (12+) [code = Tobacco Cessation Counseling and Screening (12+)] [facility] Scheduled Test 2024-05-28 00:00:00 Tobacco Cessation Counseling and Screening (12+) [code = Tobacco Cessation Counseling and Screening (12+)] [facility] Scheduled Test 2024-05-28 00:00:00 Tobacco Cessation Counseling and Screening (12+) [code = Tobacco Cessation Counseling and Screening (12+)] [facility] Scheduled Test 2024-05-28 00:00:00 Tobacco Cessation Counseling and Screening (12+) [code = Tobacco Cessation Counseling and Screening (12+)] [facility] Scheduled Test 2024-05-26 00:00:00 Tobacco Cessation Counseling and Screening (12+) [code = Tobacco Cessation Counseling and Screening (12+)] [facility] Future Scheduled Test 2024-05-26 00:00:00 Tobacco Cessation Counseling and Screening (12+) [code = Tobacco Cessation Counseling and Screening (12+)] [facility] Scheduled Test 2024-03-20 00:00:00 Influenza Vaccine (Season Ended) [code = Influenza Vaccine (Season Ended)] [facility] Scheduled Test 2024-03-20 00:00:00 Influenza Vaccine (Season Ended) [code = Influenza Vaccine (Season Ended)] [facility] Future Scheduled Test 2024-03-20 00:00:00 Influenza Vaccine (Season Ended) [code = Influenza Vaccine (Season Ended)] [facility] Future Scheduled Test 2024-03-20 00:00:00 Influenza Vaccine (Season Ended) [code = Influenza Vaccine (Season Ended)] [facility] Future Scheduled Test 2024-03-20 00:00:00 Influenza Vaccine (Season Ended) [code = Influenza Vaccine (Season Ended)] [facility] Future Scheduled Test 2024-03-20 00:00:00 Influenza Vaccine (Season Ended) [code = Influenza Vaccine (Season Ended)] [facility] Future Scheduled Test 2024-03-20 00:00:00 Influenza Vaccine (Season Ended) [code = Influenza Vaccine (Season Ended)] [facility] Future Scheduled Test 2024-03-20 00:00:00 Influenza Vaccine (Season Ended) [code = Influenza Vaccine (Season Ended)] [facility] Future Scheduled Test 2024-03-20 00:00:00 Influenza Vaccine (Season Ended) [code = Influenza Vaccine (Season Ended)] [facility] Future Scheduled Test 2024-03-20 00:00:00 Influenza Vaccine (Season Ended) [code = Influenza Vaccine (Season Ended)] [facility] Future Scheduled Test 2023-07-20 00:00:00 DEPRESSION SCREENING (12+) [code = DEPRESSION SCREENING (12+)] [facility] Future Scheduled Test 2023-07-20 00:00:00 DEPRESSION SCREENING (12+) [code = DEPRESSION SCREENING (12+)] [facility] Future Scheduled Test 2023-07-20 00:00:00 DEPRESSION SCREENING (12+) [code = DEPRESSION SCREENING (12+)] [facility] Future Scheduled Test 2023-07-20 00:00:00 DEPRESSION SCREENING (12+) [code = DEPRESSION SCREENING (12+)] [facility] Future Scheduled Test 2023-07-20 00:00:00 DEPRESSION SCREENING (12+) [code = DEPRESSION SCREENING (12+)] [facility] Future Scheduled Test 2023-07-20 00:00:00 DEPRESSION SCREENING (12+) [code = DEPRESSION SCREENING (12+)] [facility] Future Scheduled Test 2023-07-20 00:00:00 DEPRESSION SCREENING (12+) [code = DEPRESSION SCREENING (12+)] [facility] Future Scheduled Test 2023-07-20 00:00:00 DEPRESSION SCREENING (12+) [code = DEPRESSION SCREENING (12+)] [facility] Future Scheduled Test 2023-07-20 00:00:00 DEPRESSION SCREENING (12+) [code = DEPRESSION SCREENING (12+)] [facility] Future Scheduled Test 2023-07-20 00:00:00 DEPRESSION SCREENING (12+) [code = DEPRESSION SCREENING (12+)] [facility] Future Scheduled Test 2023-07-20 00:00:00 DEPRESSION SCREENING (12+) [code = DEPRESSION SCREENING (12+)] [facility] Future Scheduled Test 2023-07-20 00:00:00 DEPRESSION SCREENING (12+) [code = DEPRESSION SCREENING (12+)] [facility] Future Scheduled Test 2023-07-20 00:00:00 DEPRESSION SCREENING (12+) [code = DEPRESSION SCREENING (12+)] [facility] Future Scheduled Test 2023-07-20 00:00:00 DEPRESSION SCREENING (12+) [code = DEPRESSION SCREENING (12+)] [facility] Future Scheduled Test 2023-07-20 00:00:00 DEPRESSION SCREENING (12+) [code = DEPRESSION SCREENING (12+)] [facility] Future Scheduled Test 2023-07-20 00:00:00 DEPRESSION SCREENING (12+) [code = DEPRESSION SCREENING (12+)] [facility] Future Scheduled Test 2023-07-20 00:00:00 DEPRESSION SCREENING (12+) [code = DEPRESSION SCREENING (12+)] [facility] Future Scheduled Test 2023-07-20 00:00:00 DEPRESSION SCREENING (12+) [code = DEPRESSION SCREENING (12+)] [facility] Future Scheduled Test 2023-07-20 00:00:00 DEPRESSION SCREENING (12+) [code = DEPRESSION SCREENING (12+)] [facility] Future Scheduled Test 2023-07-20 00:00:00 DEPRESSION SCREENING (12+) [code = DEPRESSION SCREENING (12+)] [facility] Future Scheduled Test 2023-07-20 00:00:00 DEPRESSION SCREENING (12+) [code = DEPRESSION SCREENING (12+)] [facility] Future Scheduled Test 2023-07-20 00:00:00 DEPRESSION SCREENING (12+) [code = DEPRESSION SCREENING (12+)] [facility] Future Scheduled Test 2023-07-20 00:00:00 DEPRESSION SCREENING (12+) [code = DEPRESSION SCREENING (12+)] [facility] Future Scheduled Test 2023-07-20 00:00:00 DEPRESSION SCREENING (12+) [code = DEPRESSION SCREENING (12+)] [facility] Future Scheduled Test 2023-07-20 00:00:00 DEPRESSION SCREENING (12+) [code = DEPRESSION SCREENING (12+)] [facility] Future Scheduled Test 2023-07-20 00:00:00 DEPRESSION SCREENING (12+) [code = DEPRESSION SCREENING (12+)] [facility] Future Scheduled Test 2023-07-20 00:00:00 DEPRESSION SCREENING (12+) [code = DEPRESSION SCREENING (12+)] [facility] Future Scheduled Test 2023-07-20 00:00:00 DEPRESSION SCREENING (12+) [code = DEPRESSION SCREENING (12+)] [facility] Future Scheduled Test 2023-07-20 00:00:00 DEPRESSION SCREENING (12+) [code = DEPRESSION SCREENING (12+)] [facility] Future Scheduled Test 2023-07-20 00:00:00 DEPRESSION SCREENING (12+) [code = DEPRESSION SCREENING (12+)] [facility] Future Scheduled Test 2023-07-20 00:00:00 DEPRESSION SCREENING (12+) [code = DEPRESSION SCREENING (12+)] [facility] Future Scheduled Test 2023-07-20 00:00:00 DEPRESSION SCREENING (12+) [code = DEPRESSION SCREENING (12+)] [facility] Future Scheduled Test 2023-07-20 00:00:00 DEPRESSION SCREENING (12+) [code = DEPRESSION SCREENING (12+)] [facility] Future Scheduled Test 2023-07-20 00:00:00 DEPRESSION SCREENING (12+) [code = DEPRESSION SCREENING (12+)] [facility] Future Scheduled Test 2023-07-20 00:00:00 DEPRESSION SCREENING (12+) [code = DEPRESSION SCREENING (12+)] [facility] Future Scheduled Test 2023-07-20 00:00:00 DEPRESSION SCREENING (12+) [code = DEPRESSION SCREENING (12+)] [facility] Future Scheduled Test 2023-07-20 00:00:00 DEPRESSION SCREENING (12+) [code = DEPRESSION SCREENING (12+)] [facility] Future Scheduled Test 2023-03-20 00:00:00 INFLUENZA VACCINE (Season Ended) [code = INFLUENZA VACCINE (Season Ended)] [facility] Future Scheduled Test 2023-03-20 00:00:00 INFLUENZA VACCINE (Season Ended) [code = INFLUENZA VACCINE (Season Ended)] [facility] Future Scheduled Test 2023-03-20 00:00:00 INFLUENZA VACCINE (Season Ended) [code = INFLUENZA VACCINE (Season Ended)] [facility] Future Scheduled Test 2023-03-20 00:00:00 INFLUENZA VACCINE (Season Ended) [code = INFLUENZA VACCINE (Season Ended)] [facility] Future Scheduled Test 2023-03-20 00:00:00 INFLUENZA VACCINE (Season Ended) [code = INFLUENZA VACCINE (Season Ended)] [facility] Future Scheduled Test 2023-03-20 00:00:00 INFLUENZA VACCINE (Season Ended) [code = INFLUENZA VACCINE (Season Ended)] [facility] Future Scheduled Test 2023-03-20 00:00:00 Influenza Vaccine (Season Ended) [code = Influenza Vaccine (Season Ended)] [facility] Future Scheduled Test 2023-03-20 00:00:00 Influenza Vaccine (Season Ended) [code = Influenza Vaccine (Season Ended)] [facility] Future Scheduled Test 2023-03-20 00:00:00 Influenza Vaccine (#1) [code = Influenza Vaccine (#1)] [facility] Future Scheduled Test 2023-03-20 00:00:00 Influenza Vaccine (#1) [code = Influenza Vaccine (#1)] [facility] Future Scheduled Test 2023-03-20 00:00:00 Influenza Vaccine (#1) [code = Influenza Vaccine (#1)] [facility] Future Scheduled Test 2023-03-20 00:00:00 Influenza Vaccine (#1) [code = Influenza Vaccine (#1)] [facility] Future Scheduled Test 2023-03-20 00:00:00 COVID-19 VACCINE ( season) [code = COVID-19 VACCINE ()] [facility] Future Scheduled Test 2023-03-20 00:00:00 Influenza Vaccine (#1) [code = Influenza Vaccine (#1)] [facility] Future Scheduled Test 2023-03-20 00:00:00 COVID-19 VACCINE ( season) [code = COVID-19 VACCINE ()] [facility] Future Scheduled Test 2023-03-20 00:00:00 Influenza Vaccine (#1) [code = Influenza Vaccine (#1)] [facility] Future Scheduled Test 2023-03-20 00:00:00 COVID-19 VACCINE () [code = COVID-19 VACCINE ()] [facility] Future Scheduled Test 2023-03-20 00:00:00 Influenza Vaccine (#1) [code = Influenza Vaccine (#1)] [facility] Future Scheduled Test 2023-03-20 00:00:00 COVID-19 VACCINE ( season) [code = COVID-19 VACCINE ()] [facility] Future Scheduled Test 2023-03-20 00:00:00 Influenza Vaccine (#1) [code = Influenza Vaccine (#1)] [facility] Future Scheduled Test 2023-03-20 00:00:00 Influenza Vaccine (#1) [code = Influenza Vaccine (#1)] [facility] Future Scheduled Test 2023-03-20 00:00:00 COVID-19 VACCINE ( season) [code = COVID-19 VACCINE ()] [facility] Future Scheduled Test 2023-03-20 00:00:00 Influenza Vaccine (#1) [code = Influenza Vaccine (#1)] [facility] Future Scheduled Test 2023-03-20 00:00:00 COVID-19 VACCINE ( season) [code = COVID-19 VACCINE ( season)] [facility] Future Scheduled Test 2023-03-20 00:00:00 Influenza Vaccine (#1) [code = Influenza Vaccine (#1)] [facility] Future Scheduled Test 2023-03-20 00:00:00 COVID-19 VACCINE ( season) [code = COVID-19 VACCINE ()] [facility] Future Scheduled Test 2023-03-20 00:00:00 Influenza Vaccine (#1) [code = Influenza Vaccine (#1)] [facility] Future Scheduled Test 2023-03-20 00:00:00 COVID-19 VACCINE () [code = COVID-19 VACCINE ()] [facility] Future Scheduled Test 2023-03-20 00:00:00 Influenza Vaccine (#1) [code = Influenza Vaccine (#1)] [facility] Future Scheduled Test 2023-03-20 00:00:00 COVID-19 VACCINE ( season) [code = COVID-19 VACCINE ()] [facility] Future Scheduled Test 2023-03-20 00:00:00 Influenza Vaccine (#1) [code = Influenza Vaccine (#1)] [facility] Future Scheduled Test 2023-03-20 00:00:00 COVID-19 VACCINE ( season) [code = COVID-19 VACCINE ( season)] [facility] Future Scheduled Test 2023-03-20 00:00:00 Influenza Vaccine (#1) [code = Influenza Vaccine (#1)] [facility] Future Scheduled Test 2023-03-20 00:00:00 COVID-19 VACCINE (4 - 2023-24 season) [code = COVID-19 VACCINE ( season)] [facility] Future Scheduled Test 2023-03-20 00:00:00 Influenza Vaccine (#1) [code = Influenza Vaccine (#1)] [facility] Future Scheduled Test 2023-03-20 00:00:00 Influenza Vaccine (#1) [code = Influenza Vaccine (#1)] [facility] Future Scheduled Test 2023-03-20 00:00:00 COVID-19 VACCINE ( season) [code = COVID-19 VACCINE ()] [facility] Future Scheduled Test 2023-03-20 00:00:00 Influenza Vaccine (#1) [code = Influenza Vaccine (#1)] [facility] Future Scheduled Test 2023-03-20 00:00:00 COVID-19 VACCINE ( season) [code = COVID-19 VACCINE ()] [facility] Future Scheduled Test 2023-03-20 00:00:00 Influenza Vaccine (#1) [code = Influenza Vaccine (#1)] [facility] Future Scheduled Test 2023-03-20 00:00:00 COVID-19 VACCINE ( season) [code = COVID-19 VACCINE ()] [facility] Future Scheduled Test 2023-03-20 00:00:00 Influenza Vaccine (#1) [code = Influenza Vaccine (#1)] [facility] Future Scheduled Test 2023-03-20 00:00:00 COVID-19 VACCINE ( season) [code = COVID-19 VACCINE ( season)] [facility] Future Scheduled Test 2023-03-20 00:00:00 Influenza Vaccine (#1) [code = Influenza Vaccine (#1)] [facility] Future Scheduled Test 2023-03-20 00:00:00 COVID-19 VACCINE ( season) [code = COVID-19 VACCINE ()] [facility] Future Scheduled Test 2023-03-20 00:00:00 Influenza Vaccine (#1) [code = Influenza Vaccine (#1)] [facility] Future Scheduled Test 2023-03-20 00:00:00 COVID-19 VACCINE ( season) [code = COVID-19 VACCINE ( season)] [facility] Future Scheduled Test 2023-03-20 00:00:00 Influenza Vaccine (#1) [code = Influenza Vaccine (#1)] [facility] Future Scheduled Test 2023-03-20 00:00:00 Influenza Vaccine (#1) [code = Influenza Vaccine (#1)] [facility] Future Scheduled Test 2023-03-20 00:00:00 COVID-19 VACCINE ( season) [code = COVID-19 VACCINE ()] [facility] Future Scheduled Test 2023-03-20 00:00:00 Influenza Vaccine (#1) [code = Influenza Vaccine (#1)] [facility] Future Scheduled Test 2023-03-20 00:00:00 COVID-19 VACCINE ( season) [code = COVID-19 VACCINE ()] [facility] Future Scheduled Test 2023-03-20 00:00:00 Influenza Vaccine (#1) [code = Influenza Vaccine (#1)] [facility] Future Scheduled Test 2023-03-20 00:00:00 COVID-19 VACCINE ( season) [code = COVID-19 VACCINE ( season)] [facility] Future Scheduled Test 2023-03-20 00:00:00 Influenza Vaccine (#1) [code = Influenza Vaccine (#1)] [facility] Future Scheduled Test 2023-03-20 00:00:00 COVID-19 VACCINE ( season) [code = COVID-19 VACCINE ( season)] [facility] Future Scheduled Test 2023-03-20 00:00:00 Influenza Vaccine (#1) [code = Influenza Vaccine (#1)] [facility] Future Scheduled Test 2023-03-20 00:00:00 Influenza Vaccine (#1) [code = Influenza Vaccine (#1)] [facility] Future Scheduled Test 2023-03-20 00:00:00 COVID-19 VACCINE ( season) [code = COVID-19 VACCINE ( season)] [facility] Future Scheduled Test 2023-03-20 00:00:00 Influenza Vaccine (#1) [code = Influenza Vaccine (#1)] [facility] Future Scheduled Test 2023-03-20 00:00:00 COVID-19 VACCINE ( season) [code = COVID-19 VACCINE ()] [facility] Future Scheduled Test 2023-03-20 00:00:00 Influenza Vaccine (#1) [code = Influenza Vaccine (#1)] [facility] Future Scheduled Test 2023-03-20 00:00:00 COVID-19 VACCINE () [code = COVID-19 VACCINE ()] [facility] Future Scheduled Test 2023-03-20 00:00:00 Influenza Vaccine (#1) [code = Influenza Vaccine (#1)] [facility] Future Scheduled Test 2023-03-20 00:00:00 COVID-19 VACCINE ( season) [code = COVID-19 VACCINE ()] [facility] Future Scheduled Test 2023-03-20 00:00:00 Influenza Vaccine (#1) [code = Influenza Vaccine (#1)] [facility] Future Scheduled Test 2023-03-20 00:00:00 COVID-19 VACCINE ( season) [code = COVID-19 VACCINE ( season)] [facility] Future Scheduled Test 2023-03-20 00:00:00 Influenza Vaccine (#1) [code = Influenza Vaccine (#1)] [facility] Future Scheduled Test 2023-03-20 00:00:00 COVID-19 VACCINE ( season) [code = COVID-19 VACCINE ( season)] [facility] Future Scheduled Test 2023-03-20 00:00:00 Influenza Vaccine (#1) [code = Influenza Vaccine (#1)] [facility] Future Scheduled Test 2023-03-20 00:00:00 Influenza Vaccine (#1) [code = Influenza Vaccine (#1)] [facility] Future Scheduled Test 2023-03-20 00:00:00 COVID-19 VACCINE ( season) [code = COVID-19 VACCINE ()] [facility] Future Scheduled Test 2023-03-20 00:00:00 Influenza Vaccine (#1) [code = Influenza Vaccine (#1)] [facility] Future Scheduled Test 2023-03-20 00:00:00 COVID-19 VACCINE () [code = COVID-19 VACCINE ()] [facility] Future Scheduled Test 2023-03-20 00:00:00 Influenza Vaccine (#1) [code = Influenza Vaccine (#1)] [facility] Future Scheduled Test 2023-03-20 00:00:00 COVID-19 VACCINE () [code = COVID-19 VACCINE ()] [facility] Future Scheduled Test 2023-03-20 00:00:00 COVID-19 VACCINE () [code = COVID-19 VACCINE ()] [facility] Future Scheduled Test 2023-03-20 00:00:00 COVID-19 VACCINE ( season) [code = COVID-19 VACCINE ()] [facility] Future Scheduled Test 2023-03-20 00:00:00 COVID-19 VACCINE () [code = COVID-19 VACCINE ()] [facility] Future Scheduled Test 2023-03-20 00:00:00 COVID-19 VACCINE ( season) [code = COVID-19 VACCINE ()] [facility] Future Scheduled Test 2023-03-20 00:00:00 COVID-19 VACCINE ( season) [code = COVID-19 VACCINE ()] [facility] Future Scheduled Test 2023-03-20 00:00:00 Influenza Vaccine (#1) [code = Influenza Vaccine (#1)] [facility] Future Scheduled Test 2023-03-20 00:00:00 COVID-19 VACCINE () [code = COVID-19 VACCINE ()] [facility] Future Scheduled Test 2023-03-20 00:00:00 COVID-19 VACCINE () [code = COVID-19 VACCINE ()] [facility] Future Scheduled Test 2023-03-20 00:00:00 COVID-19 VACCINE ( season) [code = COVID-19 VACCINE ()] [facility] Future Scheduled Test 2023-03-20 00:00:00 COVID-19 VACCINE ( season) [code = COVID-19 VACCINE ()] [facility] Future Scheduled Test 2023-03-20 00:00:00 Influenza Vaccine (#1) [code = Influenza Vaccine (#1)] [facility] Future Scheduled Test 2023-03-20 00:00:00 Influenza Vaccine (#1) [code = Influenza Vaccine (#1)] [facility] Future Scheduled Test 2023-03-20 00:00:00 Influenza Vaccine (#1) [code = Influenza Vaccine (#1)] [facility] Future Scheduled Test 2023-03-20 00:00:00 Influenza Vaccine (#1) [code = Influenza Vaccine (#1)] [facility] Future Scheduled Test 2023-03-20 00:00:00 Influenza Vaccine (#1) [code = Influenza Vaccine (#1)] [facility] Future Scheduled Test 2023-03-20 00:00:00 Influenza Vaccine (#1) [code = Influenza Vaccine (#1)] [facility] Future Scheduled Test 2023-03-20 00:00:00 Influenza Vaccine (#1) [code = Influenza Vaccine (#1)] [facility] Future Scheduled Test 2023-03-20 00:00:00 Influenza Vaccine (#1) [code = Influenza Vaccine (#1)] [facility] Future Scheduled Test 2023-03-20 00:00:00 Influenza Vaccine (#1) [code = Influenza Vaccine (#1)] [facility] Future Scheduled Test 2023-03-20 00:00:00 COVID-19 VACCINE ( season) [code = COVID-19 VACCINE ( season)] [facility] Future Scheduled Test 2022-07-20 00:00:00 DEPRESSION SCREENING (12+) [code = DEPRESSION SCREENING (12+)] [facility] Future Scheduled Test 2022-07-20 00:00:00 DEPRESSION SCREENING (12+) [code = DEPRESSION SCREENING (12+)] [facility] Future Scheduled Test 2022-07-20 00:00:00 DEPRESSION SCREENING (12+) [code = DEPRESSION SCREENING (12+)] [facility] Future Scheduled Test 2022-07-20 00:00:00 DEPRESSION SCREENING (12+) [code = DEPRESSION SCREENING (12+)] [facility] Future Scheduled Test 2022-07-20 00:00:00 DEPRESSION SCREENING (12+) [code = DEPRESSION SCREENING (12+)] [facility] Future Scheduled Test 2022-07-20 00:00:00 DEPRESSION SCREENING (12+) [code = DEPRESSION SCREENING (12+)] [facility] Future Scheduled Test 2022-07-20 00:00:00 DEPRESSION SCREENING (12+) [code = DEPRESSION SCREENING (12+)] [facility] Future Scheduled Test 2022-07-20 00:00:00 DEPRESSION SCREENING (12+) [code = DEPRESSION SCREENING (12+)] [facility] Future Scheduled Test 2022-07-20 00:00:00 DEPRESSION SCREENING (12+) [code = DEPRESSION SCREENING (12+)] [facility] Future Scheduled Test 2022-07-20 00:00:00 DEPRESSION SCREENING (12+) [code = DEPRESSION SCREENING (12+)] [facility] Future Scheduled Test 2022-07-20 00:00:00 DEPRESSION SCREENING (12+) [code = DEPRESSION SCREENING (12+)] [facility] Future Scheduled Test 2022-07-20 00:00:00 DEPRESSION SCREENING (12+) [code = DEPRESSION SCREENING (12+)] [facility] Future Scheduled Test 2022-07-20 00:00:00 DEPRESSION SCREENING (12+) [code = DEPRESSION SCREENING (12+)] [facility] Future Scheduled Test 2022-07-20 00:00:00 DEPRESSION SCREENING (12+) [code = DEPRESSION SCREENING (12+)] [facility] Future Scheduled Test 2022-07-20 00:00:00 DEPRESSION SCREENING (12+) [code = DEPRESSION SCREENING (12+)] [facility] Future Scheduled Test 2022-07-20 00:00:00 DEPRESSION SCREENING (12+) [code = DEPRESSION SCREENING (12+)] [facility] Future Scheduled Test 2022-07-20 00:00:00 DEPRESSION SCREENING (12+) [code = DEPRESSION SCREENING (12+)] [facility] Future Scheduled Test 2022-07-20 00:00:00 DEPRESSION SCREENING (12+) [code = DEPRESSION SCREENING (12+)] [facility] Future Scheduled Test 2022-07-20 00:00:00 DEPRESSION SCREENING (12+) [code = DEPRESSION SCREENING (12+)] [facility] Future Scheduled Test 2022-07-20 00:00:00 DEPRESSION SCREENING (12+) [code = DEPRESSION SCREENING (12+)] [facility] Future Scheduled Test 2022-07-20 00:00:00 DEPRESSION SCREENING (12+) [code = DEPRESSION SCREENING (12+)] [facility] Future Scheduled Test 2022-07-20 00:00:00 DEPRESSION SCREENING (12+) [code = DEPRESSION SCREENING (12+)] [facility] Future Scheduled Test 2022-07-20 00:00:00 DEPRESSION SCREENING (12+) [code = DEPRESSION SCREENING (12+)] [facility] Future Scheduled Test 2022-07-20 00:00:00 DEPRESSION SCREENING (12+) [code = DEPRESSION SCREENING (12+)] [facility] Future Scheduled Test 2022-07-20 00:00:00 DEPRESSION SCREENING (12+) [code = DEPRESSION SCREENING (12+)] [facility] Future Scheduled Test 2022-07-20 00:00:00 DEPRESSION SCREENING (12+) [code = DEPRESSION SCREENING (12+)] [facility] Future Scheduled Test 2022-07-20 00:00:00 DEPRESSION SCREENING (12+) [code = DEPRESSION SCREENING (12+)] [facility] Future Scheduled Test 2022-07-20 00:00:00 DEPRESSION SCREENING (12+) [code = DEPRESSION SCREENING (12+)] [facility] Future Scheduled Test 2022-07-20 00:00:00 DEPRESSION SCREENING (12+) [code = DEPRESSION SCREENING (12+)] [facility] Future Scheduled Test 2022-07-20 00:00:00 DEPRESSION SCREENING (12+) [code = DEPRESSION SCREENING (12+)] [facility] Future Scheduled Test 2022-07-20 00:00:00 DEPRESSION SCREENING (12+) [code = DEPRESSION SCREENING (12+)] [facility] Future Scheduled Test 2022-07-20 00:00:00 DEPRESSION SCREENING (12+) [code = DEPRESSION SCREENING (12+)] [facility] Future Scheduled Test 2022-07-20 00:00:00 DEPRESSION SCREENING (12+) [code = DEPRESSION SCREENING (12+)] [facility] Future Scheduled Test 2022-06-21 00:00:00 COVID-19 VACCINE (4 - Booster for Pfizer series) [code = COVID-19 VACCINE (4 - Booster for Pfizer series)] [facility] Future Scheduled Test 2022-06-21 00:00:00 COVID-19 VACCINE (4 - Booster for Pfizer series) [code = COVID-19 VACCINE (4 - Booster for Pfizer series)] [facility] Future Scheduled Test 2022-06-21 00:00:00 COVID-19 VACCINE (4 - Booster for Pfizer series) [code = COVID-19 VACCINE (4 - Booster for Pfizer series)] [facility] Future Scheduled Test 2022-06-21 00:00:00 COVID-19 VACCINE (4 - Booster for Pfizer series) [code = COVID-19 VACCINE (4 - Booster for Pfizer series)] [facility] Future Scheduled Test 2022-04-16 00:00:00 COVID-19 VACCINE (4 - Booster for Pfizer series) [code = COVID-19 VACCINE (4 - Booster for Pfizer series)] [facility] Future Scheduled Test 2022-04-16 00:00:00 COVID-19 VACCINE (4 - Booster for Pfizer series) [code = COVID-19 VACCINE (4 - Booster for Pfizer series)] [facility] Future Scheduled Test 2022-04-16 00:00:00 COVID-19 VACCINE (4 - Booster for Pfizer series) [code = COVID-19 VACCINE (4 - Booster for Pfizer series)] [facility] Future Scheduled Test 2022-04-16 00:00:00 COVID-19 VACCINE (4 - Booster for Pfizer series) [code = COVID-19 VACCINE (4 - Booster for Pfizer series)] [facility] Future Scheduled Test 2022-04-16 00:00:00 COVID-19 VACCINE (4 - Booster for Pfizer series) [code = COVID-19 VACCINE (4 - Booster for Pfizer series)] [facility] Future Scheduled Test 2022-04-16 00:00:00 COVID-19 VACCINE (4 - Booster for Pfizer series) [code = COVID-19 VACCINE (4 - Booster for Pfizer series)] [facility] Future Scheduled Test 2022-04-16 00:00:00 COVID-19 VACCINE (4 - Booster for Pfizer series) [code = COVID-19 VACCINE (4 - Booster for Pfizer series)] [facility] Future Scheduled Test 2022-04-16 00:00:00 COVID-19 VACCINE (4 - Booster for Pfizer series) [code = COVID-19 VACCINE (4 - Booster for Pfizer series)] [facility] Future Scheduled Test 2022-04-16 00:00:00 COVID-19 VACCINE (4 - Booster for Pfizer series) [code = COVID-19 VACCINE (4 - Booster for Pfizer series)] [facility] Future Scheduled Test 2022-04-16 00:00:00 COVID-19 VACCINE (4 - Booster for Pfizer series) [code = COVID-19 VACCINE (4 - Booster for Pfizer series)] [facility] Future Scheduled Test 2022-04-16 00:00:00 COVID-19 VACCINE (4 - Booster for Pfizer series) [code = COVID-19 VACCINE (4 - Booster for Pfizer series)] [facility] Future Scheduled Test 2022-04-16 00:00:00 COVID-19 VACCINE (4 - Booster for Pfizer series) [code = COVID-19 VACCINE (4 - Booster for Pfizer series)] [facility] Future Scheduled Test 2022-04-16 00:00:00 COVID-19 VACCINE (4 - Booster for Pfizer series) [code = COVID-19 VACCINE (4 - Booster for Pfizer series)] [facility] Future Scheduled Test 2022-04-16 00:00:00 COVID-19 VACCINE (4 - Booster for Pfizer series) [code = COVID-19 VACCINE (4 - Booster for Pfizer series)] [facility] Future Scheduled Test 2022-04-16 00:00:00 COVID-19 VACCINE (4 - Booster for Pfizer series) [code = COVID-19 VACCINE (4 - Booster for Pfizer series)] [facility] Future Scheduled Test 2022-04-16 00:00:00 COVID-19 VACCINE (4 - Booster for Pfizer series) [code = COVID-19 VACCINE (4 - Booster for Pfizer series)] [facility] Future Scheduled Test 2022-04-16 00:00:00 COVID-19 VACCINE (4 - Booster for Pfizer series) [code = COVID-19 VACCINE (4 - Booster for Pfizer series)] [facility] Future Scheduled Test 2022-04-16 00:00:00 COVID-19 VACCINE (4 - Booster for Pfizer series) [code = COVID-19 VACCINE (4 - Booster for Pfizer series)] [facility] Future Scheduled Test 2022-04-16 00:00:00 COVID-19 VACCINE (4 - Booster for Pfizer series) [code = COVID-19 VACCINE (4 - Booster for Pfizer series)] [facility] Future Scheduled Test 2022-04-16 00:00:00 COVID-19 VACCINE (4 - Booster for Pfizer series) [code = COVID-19 VACCINE (4 - Booster for Pfizer series)] [facility] Future Scheduled Test 2022-04-16 00:00:00 COVID-19 VACCINE (4 - Pfizer series) [code = COVID-19 VACCINE (4 - Pfizer series)] [facility] Future Scheduled Test 2022-04-16 00:00:00 COVID-19 VACCINE (4 - Pfizer series) [code = COVID-19 VACCINE (4 - Pfizer series)] [facility] Future Scheduled Test 2022-04-16 00:00:00 COVID-19 VACCINE (4 - Pfizer series) [code = COVID-19 VACCINE (4 - Pfizer series)] [facility] Future Scheduled Test 2022-04-16 00:00:00 COVID-19 VACCINE (4 - Pfizer series) [code = COVID-19 VACCINE (4 - Pfizer series)] [facility] Future Scheduled Test 2022-04-16 00:00:00 COVID-19 VACCINE (4 - Booster for Pfizer series) [code = COVID-19 VACCINE (4 - Booster for Pfizer series)] [facility] Future Scheduled Test 2022-04-16 00:00:00 COVID-19 VACCINE (4 - Pfizer series) [code = COVID-19 VACCINE (4 - Pfizer series)] [facility] Future Scheduled Test 2022-03-20 00:00:00 INFLUENZA VACCINE (#1) [code = INFLUENZA VACCINE (#1)] [facility] Future Scheduled Test 2022-03-20 00:00:00 INFLUENZA VACCINE (#1) [code = INFLUENZA VACCINE (#1)] [facility] Future Scheduled Test 2022-03-20 00:00:00 INFLUENZA VACCINE (#1) [code = INFLUENZA VACCINE (#1)] [facility] Future Scheduled Test 2022-03-20 00:00:00 INFLUENZA VACCINE (#1) [code = INFLUENZA VACCINE (#1)] [facility] Future Scheduled Test 2022-01-14 00:00:00 SHINGLES VACCINES (1 of 2) [code = SHINGLES VACCINES (1 of 2)] [facility] Future Scheduled Test 2022-01-14 00:00:00 SHINGLES VACCINES (1 of 2) [code = SHINGLES VACCINES (1 of 2)] [facility] Future Scheduled Test 2022-01-14 00:00:00 SHINGLES VACCINES (1 of 2) [code = SHINGLES VACCINES (1 of 2)] [facility] Future Scheduled Test 2022-01-14 00:00:00 SHINGLES VACCINES (1 of 2) [code = SHINGLES VACCINES (1 of 2)] [facility] Future Scheduled Test 2022-01-14 00:00:00 SHINGLES VACCINES (1 of 2) [code = SHINGLES VACCINES (1 of 2)] [facility] Future Scheduled Test 2022-01-14 00:00:00 SHINGLES VACCINES (1 of 2) [code = SHINGLES VACCINES (1 of 2)] [facility] Future Scheduled Test 2022-01-14 00:00:00 SHINGLES VACCINES (1 of 2) [code = SHINGLES VACCINES (1 of 2)] [facility] Future Scheduled Test 2022-01-14 00:00:00 SHINGLES VACCINES (1 of 2) [code = SHINGLES VACCINES (1 of 2)] [facility] Future Scheduled Test 2022-01-14 00:00:00 SHINGLES VACCINES (1 of 2) [code = SHINGLES VACCINES (1 of 2)] [facility] Future Scheduled Test 2022-01-14 00:00:00 SHINGLES VACCINES (1 of 2) [code = SHINGLES VACCINES (1 of 2)] [facility] Future Scheduled Test 2022-01-14 00:00:00 SHINGLES VACCINES (1 of 2) [code = SHINGLES VACCINES (1 of 2)] [facility] Future Scheduled Test 2022-01-14 00:00:00 SHINGLES VACCINES (1 of 2) [code = SHINGLES VACCINES (1 of 2)] [facility] Future Scheduled Test 2022-01-14 00:00:00 SHINGLES VACCINES (1 of 2) [code = SHINGLES VACCINES (1 of 2)] [facility] Future Scheduled Test 2022-01-14 00:00:00 SHINGLES VACCINES (1 of 2) [code = SHINGLES VACCINES (1 of 2)] [facility] Future Scheduled Test 2022-01-14 00:00:00 SHINGLES VACCINES (1 of 2) [code = SHINGLES VACCINES (1 of 2)] [facility] Future Scheduled Test 2022-01-14 00:00:00 Screening for malignant neoplasm of lung (procedure) [code = [id number]] [facility] Future Scheduled Test 2022-01-14 00:00:00 SHINGLES VACCINES (1 of 2) [code = SHINGLES VACCINES (1 of 2)] [facility] Future Scheduled Test 2022-01-14 00:00:00 Screening for malignant neoplasm of lung (procedure) [code = [id number]] [facility] Future Scheduled Test 2022-01-14 00:00:00 SHINGLES VACCINES (1 of 2) [code = SHINGLES VACCINES (1 of 2)] [facility] Future Scheduled Test 2022-01-14 00:00:00 Screening for malignant neoplasm of lung (procedure) [code = [id number]] [facility] Future Scheduled Test 2022-01-14 00:00:00 SHINGLES VACCINES (1 of 2) [code = SHINGLES VACCINES (1 of 2)] [facility] Future Scheduled Test 2022-01-14 00:00:00 Screening for malignant neoplasm of lung (procedure) [code = [id number]] [facility] Future Scheduled Test 2022-01-14 00:00:00 SHINGLES VACCINES (1 of 2) [code = SHINGLES VACCINES (1 of 2)] [facility] Future Scheduled Test 2022-01-14 00:00:00 Screening for malignant neoplasm of lung (procedure) [code = [id number]] [facility] Future Scheduled Test 2022-01-14 00:00:00 SHINGLES VACCINES (1 of 2) [code = SHINGLES VACCINES (1 of 2)] [facility] Future Scheduled Test 2022-01-14 00:00:00 Screening for malignant neoplasm of lung (procedure) [code = [id number]] [facility] Future Scheduled Test 2022-01-14 00:00:00 SHINGLES VACCINES (1 of 2) [code = SHINGLES VACCINES (1 of 2)] [facility] Future Scheduled Test 2022-01-14 00:00:00 Screening for malignant neoplasm of lung (procedure) [code = [id number]] [facility] Future Scheduled Test 2022-01-14 00:00:00 SHINGLES VACCINES (1 of 2) [code = SHINGLES VACCINES (1 of 2)] [facility] Future Scheduled Test 2022-01-14 00:00:00 Screening for malignant neoplasm of lung (procedure) [code = [id number]] [facility] Future Scheduled Test 2022-01-14 00:00:00 SHINGLES VACCINES (1 of 2) [code = SHINGLES VACCINES (1 of 2)] [facility] Future Scheduled Test 2022-01-14 00:00:00 Screening for malignant neoplasm of lung (procedure) [code = [id number]] [facility] Future Scheduled Test 2022-01-14 00:00:00 SHINGLES VACCINES (1 of 2) [code = SHINGLES VACCINES (1 of 2)] [facility] Future Scheduled Test 2022-01-14 00:00:00 Screening for malignant neoplasm of lung (procedure) [code = [id number]] [facility] Future Scheduled Test 2022-01-14 00:00:00 SHINGLES VACCINES (1 of 2) [code = SHINGLES VACCINES (1 of 2)] [facility] Future Scheduled Test 2022-01-14 00:00:00 Screening for malignant neoplasm of lung (procedure) [code = 688237534] [facility] Future Scheduled Test 2022-01-14 00:00:00 SHINGLES VACCINES (1 of 2) [code = SHINGLES VACCINES (1 of 2)] [facility] Future Scheduled Test 2022-01-14 00:00:00 Screening for malignant neoplasm of lung (procedure) [code = [id number]] [facility] Future Scheduled Test 2022-01-14 00:00:00 SHINGLES VACCINES (1 of 2) [code = SHINGLES VACCINES (1 of 2)] [facility] Future Scheduled Test 2022-01-14 00:00:00 Screening for malignant neoplasm of lung (procedure) [code = 156097832] [facility] Future Scheduled Test 2022-01-14 00:00:00 SHINGLES VACCINES (1 of 2) [code = SHINGLES VACCINES (1 of 2)] [facility] Future Scheduled Test 2022-01-14 00:00:00 Screening for malignant neoplasm of lung (procedure) [code = 730328680] [facility] Future Scheduled Test 2022-01-14 00:00:00 SHINGLES VACCINES (1 of 2) [code = SHINGLES VACCINES (1 of 2)] [facility] Future Scheduled Test 2022-01-14 00:00:00 Screening for malignant neoplasm of lung (procedure) [code = 299343369] [facility] Future Scheduled Test 2022-01-14 00:00:00 SHINGLES VACCINES (1 of 2) [code = SHINGLES VACCINES (1 of 2)] [facility] Future Scheduled Test 2022-01-14 00:00:00 Screening for malignant neoplasm of lung (procedure) [code = [id number]] [facility] Future Scheduled Test 2022-01-14 00:00:00 SHINGLES VACCINES (1 of 2) [code = SHINGLES VACCINES (1 of 2)] [facility] Future Scheduled Test 2022-01-14 00:00:00 Screening for malignant neoplasm of lung (procedure) [code = 372745875] [facility] Future Scheduled Test 2022-01-14 00:00:00 SHINGLES VACCINES (1 of 2) [code = SHINGLES VACCINES (1 of 2)] [facility] Future Scheduled Test 2022-01-14 00:00:00 Screening for malignant neoplasm of lung (procedure) [code = 571426004] [facility] Future Scheduled Test 2022-01-14 00:00:00 SHINGLES VACCINES (1 of 2) [code = SHINGLES VACCINES (1 of 2)] [facility] Future Scheduled Test 2022-01-14 00:00:00 Screening for malignant neoplasm of lung (procedure) [code = 717999447] [facility] Future Scheduled Test 2022-01-14 00:00:00 Screening for malignant neoplasm of lung (procedure) [code = 595385737] [facility] Future Scheduled Test 2022-01-14 00:00:00 SHINGLES VACCINES (1 of 2) [code = SHINGLES VACCINES (1 of 2)] [facility] Future Scheduled Test 2022-01-14 00:00:00 SHINGLES VACCINES (1 of 2) [code = SHINGLES VACCINES (1 of 2)] [facility] Future Scheduled Test 2022-01-14 00:00:00 Screening for malignant neoplasm of lung (procedure) [code = 762128380] [facility] Future Scheduled Test 2022-01-14 00:00:00 SHINGLES VACCINES (1 of 2) [code = SHINGLES VACCINES (1 of 2)] [facility] Future Scheduled Test 2022-01-14 00:00:00 Screening for malignant neoplasm of lung (procedure) [code = 389626946] [facility] Future Scheduled Test 2022-01-14 00:00:00 SHINGLES VACCINES (1 of 2) [code = SHINGLES VACCINES (1 of 2)] [facility] Future Scheduled Test 2022-01-14 00:00:00 Screening for malignant neoplasm of lung (procedure) [code = 288487128] [facility] Future Scheduled Test 2022-01-14 00:00:00 SHINGLES VACCINES (1 of 2) [code = SHINGLES VACCINES (1 of 2)] [facility] Future Scheduled Test 2022-01-14 00:00:00 Screening for malignant neoplasm of lung (procedure) [code = 346142446] [facility] Future Scheduled Test 2022-01-14 00:00:00 Screening for malignant neoplasm of lung (procedure) [code = 496567168] [facility] Future Scheduled Test 2022-01-14 00:00:00 SHINGLES VACCINES (1 of 2) [code = SHINGLES VACCINES (1 of 2)] [facility] Future Scheduled Test 2022-01-14 00:00:00 SHINGLES VACCINES (1 of 2) [code = SHINGLES VACCINES (1 of 2)] [facility] Future Scheduled Test 2022-01-14 00:00:00 Screening for malignant neoplasm of lung (procedure) [code = 690844003] [facility] Future Scheduled Test 2022-01-14 00:00:00 SHINGLES VACCINES (1 of 2) [code = SHINGLES VACCINES (1 of 2)] [facility] Future Scheduled Test 2022-01-14 00:00:00 Screening for malignant neoplasm of lung (procedure) [code = 701156542] [facility] Future Scheduled Test 2022-01-14 00:00:00 SHINGLES VACCINES (1 of 2) [code = SHINGLES VACCINES (1 of 2)] [facility] Future Scheduled Test 2022-01-14 00:00:00 Screening for malignant neoplasm of lung (procedure) [code = 601324191] [facility] Future Scheduled Test 2022-01-14 00:00:00 SHINGLES VACCINES (1 of 2) [code = SHINGLES VACCINES (1 of 2)] [facility] Future Scheduled Test 2022-01-14 00:00:00 Screening for malignant neoplasm of lung (procedure) [code = 906802635] [facility] Future Scheduled Test 2022-01-14 00:00:00 SHINGLES VACCINES (1 of 2) [code = SHINGLES VACCINES (1 of 2)] [facility] Future Scheduled Test 2022-01-14 00:00:00 Screening for malignant neoplasm of lung (procedure) [code = 650156054] [facility] Future Scheduled Test 2022-01-14 00:00:00 SHINGLES VACCINES (1 of 2) [code = SHINGLES VACCINES (1 of 2)] [facility] Future Scheduled Test 2022-01-14 00:00:00 Screening for malignant neoplasm of lung (procedure) [code = 748383160] [facility] Future Scheduled Test 2022-01-14 00:00:00 Screening for malignant neoplasm of lung (procedure) [code = 177587123] [facility] Future Scheduled Test 2022-01-14 00:00:00 SHINGLES VACCINES (1 of 2) [code = SHINGLES VACCINES (1 of 2)] [facility] Future Scheduled Test 2022-01-14 00:00:00 SHINGLES VACCINES (1 of 2) [code = SHINGLES VACCINES (1 of 2)] [facility] Future Scheduled Test 2022-01-14 00:00:00 Screening for malignant neoplasm of lung (procedure) [code = 415608596] [facility] Future Scheduled Test 2022-01-14 00:00:00 SHINGLES VACCINES (1 of 2) [code = SHINGLES VACCINES (1 of 2)] [facility] Future Scheduled Test 2022-01-14 00:00:00 Screening for malignant neoplasm of lung (procedure) [code = 061256634] [facility] Future Scheduled Test 2022-01-14 00:00:00 SHINGLES VACCINES (1 of 2) [code = SHINGLES VACCINES (1 of 2)] [facility] Future Scheduled Test 2022-01-14 00:00:00 Screening for malignant neoplasm of lung (procedure) [code = 749277503] [facility] Future Scheduled Test 2022-01-14 00:00:00 SHINGLES VACCINES (1 of 2) [code = SHINGLES VACCINES (1 of 2)] [facility] Future Scheduled Test 2022-01-14 00:00:00 Screening for malignant neoplasm of lung (procedure) [code = [id number]] [facility] Future Scheduled Test 2022-01-14 00:00:00 SHINGLES VACCINES (1 of 2) [code = SHINGLES VACCINES (1 of 2)] [facility] Future Scheduled Test 2022-01-14 00:00:00 Screening for malignant neoplasm of lung (procedure) [code = 693222633] [facility] Future Scheduled Test 2022-01-14 00:00:00 SHINGLES VACCINES (1 of 2) [code = SHINGLES VACCINES (1 of 2)] [facility] Future Scheduled Test 2022-01-14 00:00:00 Screening for malignant neoplasm of lung (procedure) [code = 214306992] [facility] Future Scheduled Test 2022-01-14 00:00:00 SHINGLES VACCINES (1 of 2) [code = SHINGLES VACCINES (1 of 2)] [facility] Future Scheduled Test 2022-01-14 00:00:00 Screening for malignant neoplasm of lung (procedure) [code = 982849034] [facility] Future Scheduled Test 2022-01-14 00:00:00 SHINGLES VACCINES (1 of 2) [code = SHINGLES VACCINES (1 of 2)] [facility] Future Scheduled Test 2022-01-14 00:00:00 Screening for malignant neoplasm of lung (procedure) [code = 135048394] [facility] Future Scheduled Test 2022-01-14 00:00:00 SHINGLES VACCINES (1 of 2) [code = SHINGLES VACCINES (1 of 2)] [facility] Future Scheduled Test 2022-01-14 00:00:00 Screening for malignant neoplasm of lung (procedure) [code = 246407029] [facility] Future Scheduled Test 2022-01-14 00:00:00 SHINGLES VACCINES (1 of 2) [code = SHINGLES VACCINES (1 of 2)] [facility] Future Scheduled Test 2022-01-14 00:00:00 Screening for malignant neoplasm of lung (procedure) [code = 602895195] [facility] Future Scheduled Test 2022-01-14 00:00:00 SHINGLES VACCINES (1 of 2) [code = SHINGLES VACCINES (1 of 2)] [facility] Future Scheduled Test 2022-01-14 00:00:00 Screening for malignant neoplasm of lung (procedure) [code = [id number]] [facility] Future Scheduled Test 2022-01-14 00:00:00 SHINGLES VACCINES (1 of 2) [code = SHINGLES VACCINES (1 of 2)] [facility] Future Scheduled Test 2022-01-14 00:00:00 Screening for malignant neoplasm of lung (procedure) [code = [id number]] [facility] Future Scheduled Test 2022-01-14 00:00:00 SHINGLES VACCINES (1 of 2) [code = SHINGLES VACCINES (1 of 2)] [facility] Future Scheduled Test 2022-01-14 00:00:00 Screening for malignant neoplasm of lung (procedure) [code = [id number]] [facility] Future Scheduled Test 2022-01-14 00:00:00 SHINGLES VACCINES (1 of 2) [code = SHINGLES VACCINES (1 of 2)] [facility] Future Scheduled Test 2022-01-14 00:00:00 Screening for malignant neoplasm of lung (procedure) [code = [id number]] [facility] Future Scheduled Test 2022-01-14 00:00:00 SHINGLES VACCINES (1 of 2) [code = SHINGLES VACCINES (1 of 2)] [facility] Future Scheduled Test 2022-01-14 00:00:00 SHINGLES VACCINES (1 of 2) [code = SHINGLES VACCINES (1 of 2)] [facility] Future Scheduled Test 2022-01-14 00:00:00 SHINGLES VACCINES (1 of 2) [code = SHINGLES VACCINES (1 of 2)] [facility] Future Scheduled Test 2022-01-14 00:00:00 Screening for malignant neoplasm of lung (procedure) [code = [id number]] [facility] Future Scheduled Test 2022-01-14 00:00:00 SHINGLES VACCINES (1 of 2) [code = SHINGLES VACCINES (1 of 2)] [facility] Future Scheduled Test 2022-01-14 00:00:00 Screening for malignant neoplasm of lung (procedure) [code = [id number]] [facility] Future Scheduled Test 2022-01-14 00:00:00 SHINGLES VACCINES (1 of 2) [code = SHINGLES VACCINES (1 of 2)] [facility] Future Scheduled Test 2022-01-14 00:00:00 Screening for malignant neoplasm of lung (procedure) [code = [id number]] [facility] Future Scheduled Test 2022-01-14 00:00:00 SHINGLES VACCINES (1 of 2) [code = SHINGLES VACCINES (1 of 2)] [facility] Future Scheduled Test 2022-01-14 00:00:00 Screening for malignant neoplasm of lung (procedure) [code = [id number]] [facility] Future Scheduled Test 2022-01-14 00:00:00 SHINGLES VACCINES (1 of 2) [code = SHINGLES VACCINES (1 of 2)] [facility] Future Scheduled Test 2022-01-14 00:00:00 Screening for malignant neoplasm of lung (procedure) [code = [id number]] [facility] Future Scheduled Test 2022-01-14 00:00:00 SHINGLES VACCINES (1 of 2) [code = SHINGLES VACCINES (1 of 2)] [facility] Future Scheduled Test 2022-01-14 00:00:00 Screening for malignant neoplasm of lung (procedure) [code = [id number]] [facility] Future Scheduled Test 2022-01-14 00:00:00 SHINGLES VACCINES (1 of 2) [code = SHINGLES VACCINES (1 of 2)] [facility] Future Scheduled Test 2022-01-14 00:00:00 Screening for malignant neoplasm of lung (procedure) [code = [id number]] [facility] Future Scheduled Test 2022-01-14 00:00:00 SHINGLES VACCINES (1 of 2) [code = SHINGLES VACCINES (1 of 2)] [facility] Future Scheduled Test 2013-12-15 00:00:00 PNEUMOCOCCAL VACCINE 0-64 YRS (2 - PCV) [code = PNEUMOCOCCAL VACCINE 0-64 YRS (2 - PCV)] [facility] Future Scheduled Test 2013-12-15 00:00:00 PNEUMOCOCCAL VACCINE 0-64 YRS (2 - PCV) [code = PNEUMOCOCCAL VACCINE 0-64 YRS (2 - PCV)] [facility] Future Scheduled Test 2013-12-15 00:00:00 PNEUMOCOCCAL VACCINE 0-64 YRS (2 - PCV) [code = PNEUMOCOCCAL VACCINE 0-64 YRS (2 - PCV)] [facility] Future Scheduled Test 2013-12-15 00:00:00 PNEUMOCOCCAL VACCINE 0-64 YRS (2 - PCV) [code = PNEUMOCOCCAL VACCINE 0-64 YRS (2 - PCV)] [facility] Future Scheduled Test 2013-12-15 00:00:00 Pneumococcal Vaccine: 0-64 Years (2 - PCV) [code = Pneumococcal Vaccine: 0-64 Years (2 - PCV)] [facility] Future Scheduled Test 2013-12-15 00:00:00 Pneumococcal Vaccine: 0-64 Years (2 - PCV) [code = Pneumococcal Vaccine: 0-64 Years (2 - PCV)] [facility] Future Scheduled Test 2013-12-15 00:00:00 Pneumococcal Vaccine: 0-64 Years (2 - PCV) [code = Pneumococcal Vaccine: 0-64 Years (2 - PCV)] [facility] Future Scheduled Test 2013-12-15 00:00:00 Pneumococcal Vaccine: 0-64 Years (2 - PCV) [code = Pneumococcal Vaccine: 0-64 Years (2 - PCV)] [facility] Future Scheduled Test 2013-12-15 00:00:00 Pneumococcal Vaccine: 0-64 Years (2 - PCV) [code = Pneumococcal Vaccine: 0-64 Years (2 - PCV)] [facility] Future Scheduled Test 2013-12-15 00:00:00 Pneumococcal Vaccine: 0-64 Years (2 - PCV) [code = Pneumococcal Vaccine: 0-64 Years (2 - PCV)] [facility] Future Scheduled Test 2013-12-15 00:00:00 Pneumococcal Vaccine: 0-64 Years (2 - PCV) [code = Pneumococcal Vaccine: 0-64 Years (2 - PCV)] [facility] Future Scheduled Test 2013-12-15 00:00:00 Pneumococcal Vaccine: 0-64 Years (2 - PCV) [code = Pneumococcal Vaccine: 0-64 Years (2 - PCV)] [facility] Future Scheduled Test 2013-12-15 00:00:00 Pneumococcal Vaccine: 0-64 Years (2 - PCV) [code = Pneumococcal Vaccine: 0-64 Years (2 - PCV)] [facility] Future Scheduled Test 2013-12-15 00:00:00 Pneumococcal Vaccine: 0-64 Years (2 - PCV) [code = Pneumococcal Vaccine: 0-64 Years (2 - PCV)] [facility] Future Scheduled Test 2013-12-15 00:00:00 Pneumococcal Vaccine: 0-64 Years (2 - PCV) [code = Pneumococcal Vaccine: 0-64 Years (2 - PCV)] [facility] Future Scheduled Test 2013-12-15 00:00:00 Pneumococcal Vaccine: 0-64 Years (2 - PCV) [code = Pneumococcal Vaccine: 0-64 Years (2 - PCV)] [facility] Future Scheduled Test 2013-12-15 00:00:00 Pneumococcal Vaccine: 0-64 Years (2 - PCV) [code = Pneumococcal Vaccine: 0-64 Years (2 - PCV)] [facility] Future Scheduled Test 2013-12-15 00:00:00 Pneumococcal Vaccine: 0-64 Years (2 - PCV) [code = Pneumococcal Vaccine: 0-64 Years (2 - PCV)] [facility] Future Scheduled Test 2013-12-15 00:00:00 Pneumococcal Vaccine: 0-64 Years (2 - PCV) [code = Pneumococcal Vaccine: 0-64 Years (2 - PCV)] [facility] Future Scheduled Test 2013-12-15 00:00:00 Pneumococcal Vaccine: 0-64 Years (2 - PCV) [code = Pneumococcal Vaccine: 0-64 Years (2 - PCV)] [facility] Future Scheduled Test 2013-12-15 00:00:00 Pneumococcal Vaccine: 0-64 Years (2 - PCV) [code = Pneumococcal Vaccine: 0-64 Years (2 - PCV)] [facility] Future Scheduled Test 2013-12-15 00:00:00 Pneumococcal Vaccine: 0-64 Years (2 - PCV) [code = Pneumococcal Vaccine: 0-64 Years (2 - PCV)] [facility] Future Scheduled Test 2013-12-15 00:00:00 Pneumococcal Vaccine: 0-64 Years (2 - PCV) [code = Pneumococcal Vaccine: 0-64 Years (2 - PCV)] [facility] Future Scheduled Test 2013-12-15 00:00:00 Pneumococcal Vaccine: 0-64 Years (2 - PCV) [code = Pneumococcal Vaccine: 0-64 Years (2 - PCV)] [facility] Future Scheduled Test 2013-12-15 00:00:00 Pneumococcal Vaccine: 0-64 Years (2 of 2 - PCV) [code = Pneumococcal Vaccine: 0-64 Years (2 of 2 - PCV)] [facility] Future Scheduled Test 2013-12-15 00:00:00 Pneumococcal Vaccine: 0-64 Years (2 of 2 - PCV) [code = Pneumococcal Vaccine: 0-64 Years (2 of 2 - PCV)] [facility] Future Scheduled Test 2013-12-15 00:00:00 Pneumococcal Vaccine: 0-64 Years (2 of 2 - PCV) [code = Pneumococcal Vaccine: 0-64 Years (2 of 2 - PCV)] [facility] Future Scheduled Test 2013-12-15 00:00:00 Pneumococcal Vaccine: 0-64 Years (2 of 2 - PCV) [code = Pneumococcal Vaccine: 0-64 Years (2 of 2 - PCV)] [facility] Future Scheduled Test 2013-12-15 00:00:00 Pneumococcal Vaccine: 0-64 Years (2 of 2 - PCV) [code = Pneumococcal Vaccine: 0-64 Years (2 of 2 - PCV)] [facility] Future Scheduled Test 2013-12-15 00:00:00 Pneumococcal Vaccine: 0-64 Years (2 of 2 - PCV) [code = Pneumococcal Vaccine: 0-64 Years (2 of 2 - PCV)] [facility] Future Scheduled Test 2013-12-15 00:00:00 Pneumococcal Vaccine: 0-64 Years (2 of 2 - PCV) [code = Pneumococcal Vaccine: 0-64 Years (2 of 2 - PCV)] [facility] Future Scheduled Test 2013-12-15 00:00:00 Pneumococcal Vaccine: 0-64 Years (2 of 2 - PCV) [code = Pneumococcal Vaccine: 0-64 Years (2 of 2 - PCV)] [facility] Future Scheduled Test 2013-12-15 00:00:00 Pneumococcal Vaccine: 0-64 Years (2 of 2 - PCV) [code = Pneumococcal Vaccine: 0-64 Years (2 of 2 - PCV)] [facility] Future Scheduled Test 2013-12-15 00:00:00 Pneumococcal Vaccine: 0-64 Years (2 of 2 - PCV) [code = Pneumococcal Vaccine: 0-64 Years (2 of 2 - PCV)] [facility] Future Scheduled Test 2013-12-15 00:00:00 Pneumococcal Vaccine: 0-64 Years (2 of 2 - PCV) [code = Pneumococcal Vaccine: 0-64 Years (2 of 2 - PCV)] [facility] Future Scheduled Test 2013-12-15 00:00:00 Pneumococcal Vaccine: 0-64 Years (2 of 2 - PCV) [code = Pneumococcal Vaccine: 0-64 Years (2 of 2 - PCV)] [facility] Scheduled Test 2013-12-15 00:00:00 Pneumococcal Vaccine: 0-64 Years (2 of 2 - PCV) [code = Pneumococcal Vaccine: 0-64 Years (2 of 2 - PCV)] [facility] Future Scheduled Test 2013-12-15 00:00:00 Pneumococcal Vaccine: 0-64 Years (2 of 2 - PCV) [code = Pneumococcal Vaccine: 0-64 Years (2 of 2 - PCV)] [facility] Scheduled Test 2013-12-15 00:00:00 Pneumococcal Vaccine: 0-64 Years (2 of 2 - PCV) [code = Pneumococcal Vaccine: 0-64 Years (2 of 2 - PCV)] [facility] Future Scheduled Test 2013-12-15 00:00:00 Pneumococcal Vaccine: 0-64 Years (2 of 2 - PCV) [code = Pneumococcal Vaccine: 0-64 Years (2 of 2 - PCV)] [facility] Future Scheduled Test 2013-12-15 00:00:00 Pneumococcal Vaccine: 0-64 Years (2 of 2 - PCV) [code = Pneumococcal Vaccine: 0-64 Years (2 of 2 - PCV)] [facility] Future Scheduled Test 2013-12-15 00:00:00 Pneumococcal Vaccine: 0-64 Years (2 of 2 - PCV) [code = Pneumococcal Vaccine: 0-64 Years (2 of 2 - PCV)] [facility] Future Scheduled Test 2013-12-15 00:00:00 Pneumococcal Vaccine: 0-64 Years (2 of 2 - PCV) [code = Pneumococcal Vaccine: 0-64 Years (2 of 2 - PCV)] [facility] Future Scheduled Test 2013-12-15 00:00:00 Pneumococcal Vaccine: 0-64 Years (2 - PCV) [code = Pneumococcal Vaccine: 0-64 Years (2 - PCV)] [facility] Future Scheduled Test 2013-12-15 00:00:00 Pneumococcal Vaccine: 0-64 Years (2 - PCV) [code = Pneumococcal Vaccine: 0-64 Years (2 - PCV)] [facility] Future Scheduled Test 2013-12-15 00:00:00 Pneumococcal Vaccine: 0-64 Years (2 - PCV) [code = Pneumococcal Vaccine: 0-64 Years (2 - PCV)] [facility] Future Scheduled Test 1993-01-14 00:00:00 Screening for malignant neoplasm of cervix (procedure) [code = [id number]] [facility] Future Scheduled Test 1993-01-14 00:00:00 Screening for malignant neoplasm of cervix (procedure) [code = [id number]] [facility] Future Scheduled Test 1993-01-14 00:00:00 Screening for malignant neoplasm of cervix (procedure) [code = [id number]] [facility] Future Scheduled Test 1993-01-14 00:00:00 Screening for malignant neoplasm of cervix (procedure) [code = [id number]] [facility] Future Scheduled Test 1993-01-14 00:00:00 Screening for malignant neoplasm of cervix (procedure) [code = [id number]] [facility] Future Scheduled Test 1993-01-14 00:00:00 Screening for malignant neoplasm of cervix (procedure) [code = [id number]] [facility] Future Scheduled Test 1993-01-14 00:00:00 Screening for malignant neoplasm of cervix (procedure) [code = [id number]] [facility] Future Scheduled Test 1993-01-14 00:00:00 Screening for malignant neoplasm of cervix (procedure) [code = [id number]] [facility] Future Scheduled Test 1993-01-14 00:00:00 Screening for malignant neoplasm of cervix (procedure) [code = [id number]] [facility] Future Scheduled Test 1993-01-14 00:00:00 Screening for malignant neoplasm of cervix (procedure) [code = [id number]] [facility] Future Scheduled Test 1993-01-14 00:00:00 Screening for malignant neoplasm of cervix (procedure) [code = [id number]] [facility] Future Scheduled Test 1993-01-14 00:00:00 Screening for malignant neoplasm of cervix (procedure) [code = [id number]] [facility] Future Scheduled Test 1993-01-14 00:00:00 Screening for malignant neoplasm of cervix (procedure) [code = [id number]] [facility] Future Scheduled Test 1993-01-14 00:00:00 Screening for malignant neoplasm of cervix (procedure) [code = [id number]] [facility] Future Scheduled Test 1993-01-14 00:00:00 Screening for malignant neoplasm of cervix (procedure) [code = [id number]] [facility] Future Scheduled Test 1993-01-14 00:00:00 Screening for malignant neoplasm of cervix (procedure) [code = [id number]] [facility] Future Scheduled Test 1993-01-14 00:00:00 Screening for malignant neoplasm of cervix (procedure) [code = [id number]] [facility] Future Scheduled Test 1993-01-14 00:00:00 Screening for malignant neoplasm of cervix (procedure) [code = [id number]] [facility] Future Scheduled Test 1993-01-14 00:00:00 Screening for malignant neoplasm of cervix (procedure) [code = [id number]] [facility] Future Scheduled Test 1993-01-14 00:00:00 Screening for malignant neoplasm of cervix (procedure) [code = [id number]] [facility] Future Scheduled Test 1993-01-14 00:00:00 Screening for malignant neoplasm of cervix (procedure) [code = [id number]] [facility] Future Scheduled Test 1993-01-14 00:00:00 Screening for malignant neoplasm of cervix (procedure) [code = [id number]] [facility] Future Scheduled Test 1993-01-14 00:00:00 Screening for malignant neoplasm of cervix (procedure) [code = [id number]] [facility] Future Scheduled Test 1993-01-14 00:00:00 Screening for malignant neoplasm of cervix (procedure) [code = [id number]] [facility] Future Scheduled Test 1993-01-14 00:00:00 Screening for malignant neoplasm of cervix (procedure) [code = [id number]] [facility] Future Scheduled Test 1993-01-14 00:00:00 Screening for malignant neoplasm of cervix (procedure) [code = [id number]] [facility] Future Scheduled Test 1993-01-14 00:00:00 Screening for malignant neoplasm of cervix (procedure) [code = [id number]] [facility] Future Scheduled Test 1993-01-14 00:00:00 Screening for malignant neoplasm of cervix (procedure) [code = [id number]] [facility] Future Scheduled Test 1993-01-14 00:00:00 Screening for malignant neoplasm of cervix (procedure) [code = [id number]] [facility] Future Scheduled Test 1993-01-14 00:00:00 Screening for malignant neoplasm of cervix (procedure) [code = [id number]] [facility] Future Scheduled Test 1993-01-14 00:00:00 Screening for malignant neoplasm of cervix (procedure) [code = [id number]] [facility] Future Scheduled Test 1993-01-14 00:00:00 Screening for malignant neoplasm of cervix (procedure) [code = [id number]] [facility] Future Scheduled Test 1993-01-14 00:00:00 Screening for malignant neoplasm of cervix (procedure) [code = [id number]] [facility] Future Scheduled Test 1993-01-14 00:00:00 Screening for malignant neoplasm of cervix (procedure) [code = [id number]] [facility] Future Scheduled Test 1993-01-14 00:00:00 Screening for malignant neoplasm of cervix (procedure) [code = [id number]] [facility] Future Scheduled Test 1993-01-14 00:00:00 Screening for malignant neoplasm of cervix (procedure) [code = [id number]] [facility] Future Scheduled Test 1993-01-14 00:00:00 Screening for malignant neoplasm of cervix (procedure) [code = [id number]] [facility] Future Scheduled Test 1993-01-14 00:00:00 Screening for malignant neoplasm of cervix (procedure) [code = [id number]] [facility] Future Scheduled Test 1993-01-14 00:00:00 Screening for malignant neoplasm of cervix (procedure) [code = [id number]] [facility] Future Scheduled Test 1993-01-14 00:00:00 Screening for malignant neoplasm of cervix (procedure) [code = [id number]] [facility] Future Scheduled Test 1993-01-14 00:00:00 Screening for malignant neoplasm of cervix (procedure) [code = [id number]] [facility] Future Scheduled Test 1993-01-14 00:00:00 Screening for malignant neoplasm of cervix (procedure) [code = [id number]] [facility] Future Scheduled Test 1993-01-14 00:00:00 Screening for malignant neoplasm of cervix (procedure) [code = [id number]] [facility] Future Scheduled Test 1993-01-14 00:00:00 Screening for malignant neoplasm of cervix (procedure) [code = [id number]] [facility] Future Scheduled Test 1993-01-14 00:00:00 Screening for malignant neoplasm of cervix (procedure) [code = [id number]] [facility] Future Scheduled Test 1993-01-14 00:00:00 Screening for malignant neoplasm of cervix (procedure) [code = [id number]] [facility] Future Scheduled Test 1993-01-14 00:00:00 Screening for malignant neoplasm of cervix (procedure) [code = [id number]] [facility] Future Scheduled Test 1993-01-14 00:00:00 Screening for malignant neoplasm of cervix (procedure) [code = [id number]] [facility] Future Scheduled Test 1993-01-14 00:00:00 Screening for malignant neoplasm of cervix (procedure) [code = [id number]] [facility] Future Scheduled Test 1993-01-14 00:00:00 Screening for malignant neoplasm of cervix (procedure) [code = [id number]] [facility] Future Scheduled Test 1993-01-14 00:00:00 Screening for malignant neoplasm of cervix (procedure) [code = [id number]] [facility] Future Scheduled Test 1993-01-14 00:00:00 Screening for malignant neoplasm of cervix (procedure) [code = [id number]] [facility] Future Scheduled Test 1993-01-14 00:00:00 Screening for malignant neoplasm of cervix (procedure) [code = [id number]] [facility] Future Scheduled Test 1993-01-14 00:00:00 Screening for malignant neoplasm of cervix (procedure) [code = [id number]] [facility] Future Scheduled Test 1993-01-14 00:00:00 Screening for malignant neoplasm of cervix (procedure) [code = [id number]] [facility] Future Scheduled Test 1993-01-14 00:00:00 Screening for malignant neoplasm of cervix (procedure) [code = [id number]] [facility] Future Scheduled Test 1993-01-14 00:00:00 Screening for malignant neoplasm of cervix (procedure) [code = [id number]] [facility] Future Scheduled Test 1993-01-14 00:00:00 Screening for malignant neoplasm of cervix (procedure) [code = [id number]] [facility] Future Scheduled Test 1993-01-14 00:00:00 Screening for malignant neoplasm of cervix (procedure) [code = [id number]] [facility] Future Scheduled Test 1993-01-14 00:00:00 Screening for malignant neoplasm of cervix (procedure) [code = [id number]] [facility] Future Scheduled Test 1993-01-14 00:00:00 Screening for malignant neoplasm of cervix (procedure) [code = [id number]] [facility] Future Scheduled Test 1993-01-14 00:00:00 Screening for malignant neoplasm of cervix (procedure) [code = [id number]] [facility] Future Scheduled Test 1993-01-14 00:00:00 Screening for malignant neoplasm of cervix (procedure) [code = [id number]] [facility] Future Scheduled Test 1993-01-14 00:00:00 Screening for malignant neoplasm of cervix (procedure) [code = [id number]] [facility] Future Scheduled Test 1993-01-14 00:00:00 Screening for malignant neoplasm of cervix (procedure) [code = [id number]] [facility] Future Scheduled Test 1993-01-14 00:00:00 Screening for malignant neoplasm of cervix (procedure) [code = [id number]] [facility] Future Scheduled Test 1993-01-14 00:00:00 Screening for malignant neoplasm of cervix (procedure) [code = [id number]] [facility] Future Scheduled Test 1993-01-14 00:00:00 Screening for malignant neoplasm of cervix (procedure) [code = [id number]] [facility] Future Scheduled Test 1993-01-14 00:00:00 Screening for malignant neoplasm of cervix (procedure) [code = [id number]] [facility] Future Scheduled Test 1993-01-14 00:00:00 Screening for malignant neoplasm of cervix (procedure) [code = [id number]] [facility] Future Scheduled Test 1991-01-14 00:00:00 DTAP/TDAP/TD VACCINES (1 - Tdap) [code = DTAP/TDAP/TD VACCINES (1 - Tdap)] [facility] Future Scheduled Test 1991-01-14 00:00:00 DTAP/TDAP/TD VACCINES (1 - Tdap) [code = DTAP/TDAP/TD VACCINES (1 - Tdap)] [facility] Future Scheduled Test 1991-01-14 00:00:00 DTAP/TDAP/TD VACCINES (1 - Tdap) [code = DTAP/TDAP/TD VACCINES (1 - Tdap)] [facility] Future Scheduled Test 1991-01-14 00:00:00 DTAP/TDAP/TD VACCINES (1 - Tdap) [code = DTAP/TDAP/TD VACCINES (1 - Tdap)] [facility] Future Scheduled Test 1991-01-14 00:00:00 DTAP/TDAP/TD VACCINES (1 - Tdap) [code = DTAP/TDAP/TD VACCINES (1 - Tdap)] [facility] Future Scheduled Test 1991-01-14 00:00:00 DTAP/TDAP/TD VACCINES (1 - Tdap) [code = DTAP/TDAP/TD VACCINES (1 - Tdap)] [facility] Future Scheduled Test 1991-01-14 00:00:00 DTAP/TDAP/TD VACCINES (1 - Tdap) [code = DTAP/TDAP/TD VACCINES (1 - Tdap)] [facility] Future Scheduled Test 1991-01-14 00:00:00 DTAP/TDAP/TD VACCINES (1 - Tdap) [code = DTAP/TDAP/TD VACCINES (1 - Tdap)] [facility] Future Scheduled Test 1991-01-14 00:00:00 DTAP/TDAP/TD VACCINES (1 - Tdap) [code = DTAP/TDAP/TD VACCINES (1 - Tdap)] [facility] Future Scheduled Test 1991-01-14 00:00:00 DTAP/TDAP/TD VACCINES (1 - Tdap) [code = DTAP/TDAP/TD VACCINES (1 - Tdap)] [facility] Future Scheduled Test 1991-01-14 00:00:00 DTAP/TDAP/TD VACCINES (1 - Tdap) [code = DTAP/TDAP/TD VACCINES (1 - Tdap)] [facility] Future Scheduled Test 1991-01-14 00:00:00 DTAP/TDAP/TD VACCINES (1 - Tdap) [code = DTAP/TDAP/TD VACCINES (1 - Tdap)] [facility] Future Scheduled Test 1991-01-14 00:00:00 DTAP/TDAP/TD VACCINES (1 - Tdap) [code = DTAP/TDAP/TD VACCINES (1 - Tdap)] [facility] Future Scheduled Test 1991-01-14 00:00:00 DTAP/TDAP/TD VACCINES (1 - Tdap) [code = DTAP/TDAP/TD VACCINES (1 - Tdap)] [facility] Future Scheduled Test 1991-01-14 00:00:00 DTAP/TDAP/TD VACCINES (1 - Tdap) [code = DTAP/TDAP/TD VACCINES (1 - Tdap)] [facility] Future Scheduled Test 1991-01-14 00:00:00 DTAP/TDAP/TD VACCINES (1 - Tdap) [code = DTAP/TDAP/TD VACCINES (1 - Tdap)] [facility] Future Scheduled Test 1991-01-14 00:00:00 DTAP/TDAP/TD VACCINES (1 - Tdap) [code = DTAP/TDAP/TD VACCINES (1 - Tdap)] [facility] Future Scheduled Test 1991-01-14 00:00:00 DTAP/TDAP/TD VACCINES (1 - Tdap) [code = DTAP/TDAP/TD VACCINES (1 - Tdap)] [facility] Future Scheduled Test 1991-01-14 00:00:00 DTAP/TDAP/TD VACCINES (1 - Tdap) [code = DTAP/TDAP/TD VACCINES (1 - Tdap)] [facility] Future Scheduled Test 1991-01-14 00:00:00 DTAP/TDAP/TD VACCINES (1 - Tdap) [code = DTAP/TDAP/TD VACCINES (1 - Tdap)] [facility] Future Scheduled Test 1991-01-14 00:00:00 DTAP/TDAP/TD VACCINES (1 - Tdap) [code = DTAP/TDAP/TD VACCINES (1 - Tdap)] [facility] Future Scheduled Test 1991-01-14 00:00:00 DTAP/TDAP/TD VACCINES (1 - Tdap) [code = DTAP/TDAP/TD VACCINES (1 - Tdap)] [facility] Future Scheduled Test 1991-01-14 00:00:00 DTAP/TDAP/TD VACCINES (1 - Tdap) [code = DTAP/TDAP/TD VACCINES (1 - Tdap)] [facility] Future Scheduled Test 1991-01-14 00:00:00 DTAP/TDAP/TD VACCINES (1 - Tdap) [code = DTAP/TDAP/TD VACCINES (1 - Tdap)] [facility] Future Scheduled Test 1991-01-14 00:00:00 DTAP/TDAP/TD VACCINES (1 - Tdap) [code = DTAP/TDAP/TD VACCINES (1 - Tdap)] [facility] Future Scheduled Test 1991-01-14 00:00:00 DTAP/TDAP/TD VACCINES (1 - Tdap) [code = DTAP/TDAP/TD VACCINES (1 - Tdap)] [facility] Future Scheduled Test 1991-01-14 00:00:00 DTAP/TDAP/TD VACCINES (1 - Tdap) [code = DTAP/TDAP/TD VACCINES (1 - Tdap)] [facility] Future Scheduled Test 1991-01-14 00:00:00 DTAP/TDAP/TD VACCINES (1 - Tdap) [code = DTAP/TDAP/TD VACCINES (1 - Tdap)] [facility] Future Scheduled Test 1991-01-14 00:00:00 DTAP/TDAP/TD VACCINES (1 - Tdap) [code = DTAP/TDAP/TD VACCINES (1 - Tdap)] [facility] Future Scheduled Test 1991-01-14 00:00:00 DTAP/TDAP/TD VACCINES (1 - Tdap) [code = DTAP/TDAP/TD VACCINES (1 - Tdap)] [facility] Future Scheduled Test 1991-01-14 00:00:00 DTAP/TDAP/TD VACCINES (1 - Tdap) [code = DTAP/TDAP/TD VACCINES (1 - Tdap)] [facility] Future Scheduled Test 1991-01-14 00:00:00 DTAP/TDAP/TD VACCINES (1 - Tdap) [code = DTAP/TDAP/TD VACCINES (1 - Tdap)] [facility] Future Scheduled Test 1991-01-14 00:00:00 DTAP/TDAP/TD VACCINES (1 - Tdap) [code = DTAP/TDAP/TD VACCINES (1 - Tdap)] [facility] Future Scheduled Test 1991-01-14 00:00:00 DTAP/TDAP/TD VACCINES (1 - Tdap) [code = DTAP/TDAP/TD VACCINES (1 - Tdap)] [facility] Future Scheduled Test 1991-01-14 00:00:00 DTAP/TDAP/TD VACCINES (1 - Tdap) [code = DTAP/TDAP/TD VACCINES (1 - Tdap)] [facility] Future Scheduled Test 1991-01-14 00:00:00 DTAP/TDAP/TD VACCINES (1 - Tdap) [code = DTAP/TDAP/TD VACCINES (1 - Tdap)] [facility] Future Scheduled Test 1991-01-14 00:00:00 DTAP/TDAP/TD VACCINES (1 - Tdap) [code = DTAP/TDAP/TD VACCINES (1 - Tdap)] [facility] Future Scheduled Test 1991-01-14 00:00:00 DTAP/TDAP/TD VACCINES (1 - Tdap) [code = DTAP/TDAP/TD VACCINES (1 - Tdap)] [facility] Future Scheduled Test 1991-01-14 00:00:00 DTAP/TDAP/TD VACCINES (1 - Tdap) [code = DTAP/TDAP/TD VACCINES (1 - Tdap)] [facility] Future Scheduled Test 1991-01-14 00:00:00 DTAP/TDAP/TD VACCINES (1 - Tdap) [code = DTAP/TDAP/TD VACCINES (1 - Tdap)] [facility] Future Scheduled Test 1991-01-14 00:00:00 DTAP/TDAP/TD VACCINES (1 - Tdap) [code = DTAP/TDAP/TD VACCINES (1 - Tdap)] [facility] Future Scheduled Test 1991-01-14 00:00:00 DTAP/TDAP/TD VACCINES (1 - Tdap) [code = DTAP/TDAP/TD VACCINES (1 - Tdap)] [facility] Future Scheduled Test 1991-01-14 00:00:00 DTAP/TDAP/TD VACCINES (1 - Tdap) [code = DTAP/TDAP/TD VACCINES (1 - Tdap)] [facility] Future Scheduled Test 1991-01-14 00:00:00 DTAP/TDAP/TD VACCINES (1 - Tdap) [code = DTAP/TDAP/TD VACCINES (1 - Tdap)] [facility] Future Scheduled Test 1991-01-14 00:00:00 DTAP/TDAP/TD VACCINES (1 - Tdap) [code = DTAP/TDAP/TD VACCINES (1 - Tdap)] [facility] Future Scheduled Test 1991-01-14 00:00:00 DTAP/TDAP/TD VACCINES (1 - Tdap) [code = DTAP/TDAP/TD VACCINES (1 - Tdap)] [facility] Future Scheduled Test 1991-01-14 00:00:00 DTAP/TDAP/TD VACCINES (1 - Tdap) [code = DTAP/TDAP/TD VACCINES (1 - Tdap)] [facility] Future Scheduled Test 1991-01-14 00:00:00 DTAP/TDAP/TD VACCINES (1 - Tdap) [code = DTAP/TDAP/TD VACCINES (1 - Tdap)] [facility] Future Scheduled Test 1991-01-14 00:00:00 DTAP/TDAP/TD VACCINES (1 - Tdap) [code = DTAP/TDAP/TD VACCINES (1 - Tdap)] [facility] Future Scheduled Test 1991-01-14 00:00:00 DTAP/TDAP/TD VACCINES (1 - Tdap) [code = DTAP/TDAP/TD VACCINES (1 - Tdap)] [facility] Future Scheduled Test 1991-01-14 00:00:00 DTAP/TDAP/TD VACCINES (1 - Tdap) [code = DTAP/TDAP/TD VACCINES (1 - Tdap)] [facility] Future Scheduled Test 1991-01-14 00:00:00 DTAP/TDAP/TD VACCINES (1 - Tdap) [code = DTAP/TDAP/TD VACCINES (1 - Tdap)] [facility] Future Scheduled Test 1991-01-14 00:00:00 DTAP/TDAP/TD VACCINES (1 - Tdap) [code = DTAP/TDAP/TD VACCINES (1 - Tdap)] [facility] Future Scheduled Test 1991-01-14 00:00:00 DTAP/TDAP/TD VACCINES (1 - Tdap) [code = DTAP/TDAP/TD VACCINES (1 - Tdap)] [facility] Future Scheduled Test 1991-01-14 00:00:00 DTAP/TDAP/TD VACCINES (1 - Tdap) [code = DTAP/TDAP/TD VACCINES (1 - Tdap)] [facility] Future Scheduled Test 1991-01-14 00:00:00 DTAP/TDAP/TD VACCINES (1 - Tdap) [code = DTAP/TDAP/TD VACCINES (1 - Tdap)] [facility] Future Scheduled Test 1991-01-14 00:00:00 DTAP/TDAP/TD VACCINES (1 - Tdap) [code = DTAP/TDAP/TD VACCINES (1 - Tdap)] [facility] Future Scheduled Test 1991-01-14 00:00:00 DTAP/TDAP/TD VACCINES (1 - Tdap) [code = DTAP/TDAP/TD VACCINES (1 - Tdap)] [facility] Future Scheduled Test 1991-01-14 00:00:00 DTAP/TDAP/TD VACCINES (1 - Tdap) [code = DTAP/TDAP/TD VACCINES (1 - Tdap)] [facility] Future Scheduled Test 1991-01-14 00:00:00 DTAP/TDAP/TD VACCINES (1 - Tdap) [code = DTAP/TDAP/TD VACCINES (1 - Tdap)] [facility] Future Scheduled Test 1991-01-14 00:00:00 DTAP/TDAP/TD VACCINES (1 - Tdap) [code = DTAP/TDAP/TD VACCINES (1 - Tdap)] [facility] Future Scheduled Test 1991-01-14 00:00:00 DTAP/TDAP/TD VACCINES (1 - Tdap) [code = DTAP/TDAP/TD VACCINES (1 - Tdap)] [facility] Future Scheduled Test 1991-01-14 00:00:00 DTAP/TDAP/TD VACCINES (1 - Tdap) [code = DTAP/TDAP/TD VACCINES (1 - Tdap)] [facility] Future Scheduled Test 1991-01-14 00:00:00 DTAP/TDAP/TD VACCINES (1 - Tdap) [code = DTAP/TDAP/TD VACCINES (1 - Tdap)] [facility] Future Scheduled Test 1991-01-14 00:00:00 DTAP/TDAP/TD VACCINES (1 - Tdap) [code = DTAP/TDAP/TD VACCINES (1 - Tdap)] [facility] Future Scheduled Test 1991-01-14 00:00:00 DTAP/TDAP/TD VACCINES (1 - Tdap) [code = DTAP/TDAP/TD VACCINES (1 - Tdap)] [facility] Future Scheduled Test 1991-01-14 00:00:00 DTAP/TDAP/TD VACCINES (1 - Tdap) [code = DTAP/TDAP/TD VACCINES (1 - Tdap)] [facility] Future Scheduled Test 1991-01-14 00:00:00 DTAP/TDAP/TD VACCINES (1 - Tdap) [code = DTAP/TDAP/TD VACCINES (1 - Tdap)] [facility] Future Scheduled Test 1991-01-14 00:00:00 DTAP/TDAP/TD VACCINES (1 - Tdap) [code = DTAP/TDAP/TD VACCINES (1 - Tdap)] [facility] Future Scheduled Test 1991-01-14 00:00:00 DTAP/TDAP/TD VACCINES (1 - Tdap) [code = DTAP/TDAP/TD VACCINES (1 - Tdap)] [facility] Future Scheduled Test 1990-01-14 00:00:00 HEPATITIS C SCREENING [code = HEPATITIS C SCREENING] [facility] Future Scheduled Test 1990-01-14 00:00:00 HEPATITIS C SCREENING [code = HEPATITIS C SCREENING] [facility] Future Scheduled Test 1990-01-14 00:00:00 HEPATITIS C SCREENING [code = HEPATITIS C SCREENING] [facility] Future Scheduled Test 1990-01-14 00:00:00 HEPATITIS C SCREENING [code = HEPATITIS C SCREENING] [facility] Future Scheduled Test 1990-01-14 00:00:00 HEPATITIS C SCREENING [code = HEPATITIS C SCREENING] [facility] Future Scheduled Test 1990-01-14 00:00:00 HEPATITIS C SCREENING [code = HEPATITIS C SCREENING] [facility] Future Scheduled Test 1990-01-14 00:00:00 HEPATITIS C SCREENING [code = HEPATITIS C SCREENING] [facility] Future Scheduled Test 1990-01-14 00:00:00 HEPATITIS C SCREENING [code = HEPATITIS C SCREENING] [facility] Future Scheduled Test 1990-01-14 00:00:00 HEPATITIS C SCREENING [code = HEPATITIS C SCREENING] [facility] Future Scheduled Test 1990-01-14 00:00:00 HEPATITIS C SCREENING [code = HEPATITIS C SCREENING] [facility] Future Scheduled Test 1990-01-14 00:00:00 HEPATITIS C SCREENING [code = HEPATITIS C SCREENING] [facility] Future Scheduled Test 1990-01-14 00:00:00 HEPATITIS C SCREENING [code = HEPATITIS C SCREENING] [facility] Future Scheduled Test 1990-01-14 00:00:00 HEPATITIS C SCREENING [code = HEPATITIS C SCREENING] [facility] Future Scheduled Test 1990-01-14 00:00:00 HEPATITIS C SCREENING [code = HEPATITIS C SCREENING] [facility] Future Scheduled Test 1990-01-14 00:00:00 HEPATITIS C SCREENING [code = HEPATITIS C SCREENING] [facility] Future Scheduled Test 1990-01-14 00:00:00 HEPATITIS C SCREENING [code = HEPATITIS C SCREENING] [facility] Future Scheduled Test 1990-01-14 00:00:00 HEPATITIS C SCREENING [code = HEPATITIS C SCREENING] [facility] Future Scheduled Test 1990-01-14 00:00:00 HEPATITIS C SCREENING [code = HEPATITIS C SCREENING] [facility] Future Scheduled Test 1990-01-14 00:00:00 HEPATITIS C SCREENING [code = HEPATITIS C SCREENING] [facility] Future Scheduled Test 1990-01-14 00:00:00 HEPATITIS C SCREENING [code = HEPATITIS C SCREENING] [facility] Future Scheduled Test 1990-01-14 00:00:00 HEPATITIS C SCREENING [code = HEPATITIS C SCREENING] [facility] Future Scheduled Test 1990-01-14 00:00:00 HEPATITIS C SCREENING [code = HEPATITIS C SCREENING] [facility] Future Scheduled Test 1990-01-14 00:00:00 HEPATITIS C SCREENING [code = HEPATITIS C SCREENING] [facility] Future Scheduled Test 1990-01-14 00:00:00 HEPATITIS C SCREENING [code = HEPATITIS C SCREENING] [facility] Future Scheduled Test 1990-01-14 00:00:00 HEPATITIS C SCREENING [code = HEPATITIS C SCREENING] [facility] Future Scheduled Test 1990-01-14 00:00:00 HEPATITIS C SCREENING [code = HEPATITIS C SCREENING] [facility] Future Scheduled Test 1990-01-14 00:00:00 HEPATITIS C SCREENING [code = HEPATITIS C SCREENING] [facility] Future Scheduled Test 1990-01-14 00:00:00 HEPATITIS C SCREENING [code = HEPATITIS C SCREENING] [facility] Future Scheduled Test 1990-01-14 00:00:00 HEPATITIS C SCREENING [code = HEPATITIS C SCREENING] [facility] Future Scheduled Test 1990-01-14 00:00:00 HEPATITIS C SCREENING [code = HEPATITIS C SCREENING] [facility] Future Scheduled Test 1990-01-14 00:00:00 HEPATITIS C SCREENING [code = HEPATITIS C SCREENING] [facility] Future Scheduled Test 1990-01-14 00:00:00 HEPATITIS C SCREENING [code = HEPATITIS C SCREENING] [facility] Future Scheduled Test 1990-01-14 00:00:00 HEPATITIS C SCREENING [code = HEPATITIS C SCREENING] [facility] Future Scheduled Test 1990-01-14 00:00:00 HEPATITIS C SCREENING [code = HEPATITIS C SCREENING] [facility] Future Scheduled Test 1990-01-14 00:00:00 HEPATITIS C SCREENING [code = HEPATITIS C SCREENING] [facility] Future Scheduled Test 1990-01-14 00:00:00 HEPATITIS C SCREENING [code = HEPATITIS C SCREENING] [facility] Future Scheduled Test 1990-01-14 00:00:00 HEPATITIS C SCREENING [code = HEPATITIS C SCREENING] [facility] Future Scheduled Test 1990-01-14 00:00:00 HEPATITIS C SCREENING [code = HEPATITIS C SCREENING] [facility] Future Scheduled Test 1990-01-14 00:00:00 HEPATITIS C SCREENING [code = HEPATITIS C SCREENING] [facility] Future Scheduled Test 1990-01-14 00:00:00 HEPATITIS C SCREENING [code = HEPATITIS C SCREENING] [facility] Future Scheduled Test 1990-01-14 00:00:00 HEPATITIS C SCREENING [code = HEPATITIS C SCREENING] [facility] Future Scheduled Test 1990-01-14 00:00:00 HEPATITIS C SCREENING [code = HEPATITIS C SCREENING] [facility] Future Scheduled Test 1990-01-14 00:00:00 HEPATITIS C SCREENING [code = HEPATITIS C SCREENING] [facility] Future Scheduled Test 1990-01-14 00:00:00 HEPATITIS C SCREENING [code = HEPATITIS C SCREENING] [facility] Future Scheduled Test 1990-01-14 00:00:00 HEPATITIS C SCREENING [code = HEPATITIS C SCREENING] [facility] Future Scheduled Test 1990-01-14 00:00:00 HEPATITIS C SCREENING [code = HEPATITIS C SCREENING] [facility] Future Scheduled Test 1990-01-14 00:00:00 HEPATITIS C SCREENING [code = HEPATITIS C SCREENING] [facility] Future Scheduled Test 1990-01-14 00:00:00 HEPATITIS C SCREENING [code = HEPATITIS C SCREENING] [facility] Future Scheduled Test 1990-01-14 00:00:00 HEPATITIS C SCREENING [code = HEPATITIS C SCREENING] [facility] Future Scheduled Test 1990-01-14 00:00:00 HEPATITIS C SCREENING [code = HEPATITIS C SCREENING] [facility] Future Scheduled Test 1990-01-14 00:00:00 HEPATITIS C SCREENING [code = HEPATITIS C SCREENING] [facility] Future Scheduled Test 1990-01-14 00:00:00 HEPATITIS C SCREENING [code = HEPATITIS C SCREENING] [facility] Future Scheduled Test 1990-01-14 00:00:00 HEPATITIS C SCREENING [code = HEPATITIS C SCREENING] [facility] Future Scheduled Test 1990-01-14 00:00:00 HEPATITIS C SCREENING [code = HEPATITIS C SCREENING] [facility] Future Scheduled Test 1990-01-14 00:00:00 HEPATITIS C SCREENING [code = HEPATITIS C SCREENING] [facility] Future Scheduled Test 1990-01-14 00:00:00 HEPATITIS C SCREENING [code = HEPATITIS C SCREENING] [facility] Future Scheduled Test 1990-01-14 00:00:00 HEPATITIS C SCREENING [code = HEPATITIS C SCREENING] [facility] Future Scheduled Test 1990-01-14 00:00:00 HEPATITIS C SCREENING [code = HEPATITIS C SCREENING] [facility] Future Scheduled Test 1990-01-14 00:00:00 HEPATITIS C SCREENING [code = HEPATITIS C SCREENING] [facility] Future Scheduled Test 1990-01-14 00:00:00 HEPATITIS C SCREENING [code = HEPATITIS C SCREENING] [facility] Future Scheduled Test 1990-01-14 00:00:00 HEPATITIS C SCREENING [code = HEPATITIS C SCREENING] [facility] Future Scheduled Test 1990-01-14 00:00:00 HEPATITIS C SCREENING [code = HEPATITIS C SCREENING] [facility] Future Scheduled Test 1990-01-14 00:00:00 HEPATITIS C SCREENING [code = HEPATITIS C SCREENING] [facility] Future Scheduled Test 1990-01-14 00:00:00 HEPATITIS C SCREENING [code = HEPATITIS C SCREENING] [facility] Future Scheduled Test 1990-01-14 00:00:00 HEPATITIS C SCREENING [code = HEPATITIS C SCREENING] [facility] Future Scheduled Test 1990-01-14 00:00:00 HEPATITIS C SCREENING [code = HEPATITIS C SCREENING] [facility] Future Scheduled Test 1990-01-14 00:00:00 HEPATITIS C SCREENING [code = HEPATITIS C SCREENING] [facility] Future Scheduled Test 1990-01-14 00:00:00 HEPATITIS C SCREENING [code = HEPATITIS C SCREENING] [facility] Future Scheduled Test 1990-01-14 00:00:00 HEPATITIS C SCREENING [code = HEPATITIS C SCREENING] [facility] Future Scheduled Test 1990-01-14 00:00:00 HEPATITIS C SCREENING [code = HEPATITIS C SCREENING] [facility] Future Scheduled Test 1987-01-14 00:00:00 Human immunodeficiency virus screening (procedure) [code = 130686344] [facility] Future Scheduled Test 1987-01-14 00:00:00 Human immunodeficiency virus screening (procedure) [code = [id number]] [facility] Future Scheduled Test 1984 00:00:00 Tobacco Cessation Counseling and Screening (12+) [code = Tobacco Cessation Counseling and Screening (12+)] [facility] Future Scheduled Test 1984 00:00:00 Tobacco Cessation Counseling and Screening (12+) [code = Tobacco Cessation Counseling and Screening (12+)] [facility] Future Scheduled Test 1984 00:00:00 Tobacco Cessation Counseling and Screening (12+) [code = Tobacco Cessation Counseling and Screening (12+)] [facility] Future Scheduled Test 1984 00:00:00 Tobacco Cessation Counseling and Screening (12+) [code = Tobacco Cessation Counseling and Screening (12+)] [facility] Future Scheduled Test 1984 00:00:00 Tobacco Cessation Counseling and Screening (12+) [code = Tobacco Cessation Counseling and Screening (12+)] [facility] Future Scheduled Test 1984 00:00:00 Tobacco Cessation Counseling and Screening (12+) [code = Tobacco Cessation Counseling and Screening (12+)] [facility] Future Scheduled Test 1984 00:00:00 Tobacco Cessation Counseling and Screening (12+) [code = Tobacco Cessation Counseling and Screening (12+)] [facility] Future Scheduled Test 1984 00:00:00 Tobacco Cessation Counseling and Screening (12+) [code = Tobacco Cessation Counseling and Screening (12+)] [facility] Future Scheduled Test 1984 00:00:00 Tobacco Cessation Counseling and Screening (12+) [code = Tobacco Cessation Counseling and Screening (12+)] [facility] Future Scheduled Test 1984 00:00:00 Tobacco Cessation Counseling and Screening (12+) [code = Tobacco Cessation Counseling and Screening (12+)] [facility] Scheduled Test 1984 00:00:00 Tobacco Cessation Counseling and Screening (12+) [code = Tobacco Cessation Counseling and Screening (12+)] [facility] Future Scheduled Test 1984 00:00:00 Tobacco Cessation Counseling and Screening (12+) [code = Tobacco Cessation Counseling and Screening (12+)] [facility] Future Scheduled Test 1984 00:00:00 Tobacco Cessation Counseling and Screening (12+) [code = Tobacco Cessation Counseling and Screening (12+)] [facility] Future Scheduled Test 1984 00:00:00 Tobacco Cessation Counseling and Screening (12+) [code = Tobacco Cessation Counseling and Screening (12+)] [facility] Future Scheduled Test 1984 00:00:00 Tobacco Cessation Counseling and Screening (12+) [code = Tobacco Cessation Counseling and Screening (12+)] [facility] Future Scheduled Test 1984 00:00:00 Tobacco Cessation Counseling and Screening (12+) [code = Tobacco Cessation Counseling and Screening (12+)] [facility] Future Scheduled Test 1984 00:00:00 Tobacco Cessation Counseling and Screening (12+) [code = Tobacco Cessation Counseling and Screening (12+)] [facility] Future Scheduled Test 1984 00:00:00 Tobacco Cessation Counseling and Screening (12+) [code = Tobacco Cessation Counseling and Screening (12+)] [facility] Future Scheduled Test 1984 00:00:00 Tobacco Cessation Counseling and Screening (12+) [code = Tobacco Cessation Counseling and Screening (12+)] [facility] Future Scheduled Test 1984 00:00:00 Tobacco Cessation Counseling and Screening (12+) [code = Tobacco Cessation Counseling and Screening (12+)] [facility] Future Scheduled Test 1984 00:00:00 Tobacco Cessation Counseling and Screening (12+) [code = Tobacco Cessation Counseling and Screening (12+)] [facility] Future Scheduled Test 1984 00:00:00 Tobacco Cessation Counseling and Screening (12+) [code = Tobacco Cessation Counseling and Screening (12+)] [facility] Future Scheduled Test 1984 00:00:00 Tobacco Cessation Counseling and Screening (12+) [code = Tobacco Cessation Counseling and Screening (12+)] [facility] Future Scheduled Test 1972 00:00:00 Screening for malignant neoplasm of breast (procedure) [code = [id number]] [facility] Future Scheduled Test 1972 00:00:00 CT Colonography (combo) [code = CT Colonography (combo)] [facility] Future Scheduled Test 1972 00:00:00 Screening for malignant neoplasm of colon (procedure) [code = [id number]] [facility] Future Scheduled Test 1972 00:00:00 Screening for malignant neoplasm of colon (procedure) [code = 759079649] [facility] Future Scheduled Test 1972 00:00:00 Screening for malignant neoplasm of colon (procedure) [code = [id number]] [facility] Future Scheduled Test 1972 00:00:00 Screening for malignant neoplasm of colon (procedure) [code = 627292393] [facility] Future Scheduled Test 1972 00:00:00 Sigmoidoscopy [code = Sigmoidoscopy] [facility] Future Scheduled Test 1972 00:00:00 Screening for malignant neoplasm of breast (procedure) [code = 520268227] [facility] Future Scheduled Test 1972 00:00:00 CT Colonography (combo) [code = CT Colonography (combo)] [facility] Future Scheduled Test 1972 00:00:00 Screening for malignant neoplasm of colon (procedure) [code = 937904822] [facility] Future Scheduled Test 1972 00:00:00 Screening for malignant neoplasm of colon (procedure) [code = 467586614] [facility] Future Scheduled Test 1972 00:00:00 Screening for malignant neoplasm of colon (procedure) [code = 522153333] [facility] Future Scheduled Test 1972 00:00:00 Screening for malignant neoplasm of colon (procedure) [code = 767502137] [facility] Future Scheduled Test 1972 00:00:00 Sigmoidoscopy [code = Sigmoidoscopy] [facility] Future Scheduled Test 1972 00:00:00 Screening for malignant neoplasm of breast (procedure) [code = 674483002] [facility] Future Scheduled Test 1972 00:00:00 CT Colonography (combo) [code = CT Colonography (combo)] [facility] Future Scheduled Test 1972 00:00:00 Screening for malignant neoplasm of colon (procedure) [code = 324202310] [facility] Future Scheduled Test 1972 00:00:00 Screening for malignant neoplasm of colon (procedure) [code = 863927354] [facility] Future Scheduled Test 1972 00:00:00 Screening for malignant neoplasm of colon (procedure) [code = 407556765] [facility] Future Scheduled Test 1972 00:00:00 Screening for malignant neoplasm of colon (procedure) [code = 292824978] [facility] Future Scheduled Test 1972 00:00:00 Sigmoidoscopy [code = Sigmoidoscopy] [facility] Future Scheduled Test 1972 00:00:00 Screening for malignant neoplasm of breast (procedure) [code = [id number]] [facility] Future Scheduled Test 1972 00:00:00 CT Colonography (combo) [code = CT Colonography (combo)] [facility] Future Scheduled Test 1972 00:00:00 Screening for malignant neoplasm of colon (procedure) [code = [id number]] [facility] Future Scheduled Test 1972 00:00:00 Screening for malignant neoplasm of colon (procedure) [code = [id number]] [facility] Future Scheduled Test 1972 00:00:00 Screening for malignant neoplasm of colon (procedure) [code = 156680562] [facility] Future Scheduled Test 1972 00:00:00 Screening for malignant neoplasm of colon (procedure) [code = 298685691] [facility] Future Scheduled Test 1972 00:00:00 Sigmoidoscopy [code = Sigmoidoscopy] [facility] Future Scheduled Test 1972 00:00:00 Screening for malignant neoplasm of breast (procedure) [code = 734689043] [facility] Future Scheduled Test 1972 00:00:00 CT Colonography (combo) [code = CT Colonography (combo)] [facility] Future Scheduled Test 1972 00:00:00 Screening for malignant neoplasm of colon (procedure) [code = 137111309] [facility] Future Scheduled Test 1972 00:00:00 Screening for malignant neoplasm of colon (procedure) [code = 444353103] [facility] Future Scheduled Test 1972 00:00:00 Screening for malignant neoplasm of colon (procedure) [code = 609610628] [facility] Future Scheduled Test 1972 00:00:00 Screening for malignant neoplasm of colon (procedure) [code = 294696265] [facility] Future Scheduled Test 1972 00:00:00 Sigmoidoscopy [code = Sigmoidoscopy] [facility] Future Scheduled Test 1972 00:00:00 Screening for malignant neoplasm of breast (procedure) [code = 628089563] [facility] Future Scheduled Test 1972 00:00:00 CT Colonography (combo) [code = CT Colonography (combo)] [facility] Future Scheduled Test 1972 00:00:00 Screening for malignant neoplasm of colon (procedure) [code = 432285432] [facility] Future Scheduled Test 1972 00:00:00 Screening for malignant neoplasm of colon (procedure) [code = 843226934] [facility] Future Scheduled Test 1972 00:00:00 Screening for malignant neoplasm of colon (procedure) [code = 932562499] [facility] Future Scheduled Test 1972 00:00:00 Screening for malignant neoplasm of colon (procedure) [code = 988477429] [facility] Future Scheduled Test 1972 00:00:00 Sigmoidoscopy [code = Sigmoidoscopy] [facility] Future Scheduled Test 1972 00:00:00 Screening for malignant neoplasm of breast (procedure) [code = 854506259] [facility] Future Scheduled Test 1972 00:00:00 CT Colonography (combo) [code = CT Colonography (combo)] [facility] Future Scheduled Test 1972 00:00:00 Screening for malignant neoplasm of colon (procedure) [code = 682400297] [facility] Future Scheduled Test 1972 00:00:00 Screening for malignant neoplasm of colon (procedure) [code = 041225198] [facility] Future Scheduled Test 1972 00:00:00 Screening for malignant neoplasm of colon (procedure) [code = 688534746] [facility] Future Scheduled Test 1972 00:00:00 Screening for malignant neoplasm of colon (procedure) [code = 736041012] [facility] Future Scheduled Test 1972 00:00:00 Sigmoidoscopy [code = Sigmoidoscopy] [facility] Future Scheduled Test 1972 00:00:00 Screening for malignant neoplasm of breast (procedure) [code = 424698848] [facility] Future Scheduled Test 1972 00:00:00 CT Colonography (combo) [code = CT Colonography (combo)] [facility] Future Scheduled Test 1972 00:00:00 Screening for malignant neoplasm of colon (procedure) [code = 708686047] [facility] Future Scheduled Test 1972 00:00:00 Screening for malignant neoplasm of colon (procedure) [code = 812898512] [facility] Future Scheduled Test 1972 00:00:00 Screening for malignant neoplasm of colon (procedure) [code = 514682680] [facility] Future Scheduled Test 1972 00:00:00 Screening for malignant neoplasm of colon (procedure) [code = 915758513] [facility] Future Scheduled Test 1972 00:00:00 Sigmoidoscopy [code = Sigmoidoscopy] [facility] Future Scheduled Test 1972 00:00:00 Screening for malignant neoplasm of breast (procedure) [code = 164688025] [facility] Future Scheduled Test 1972 00:00:00 CT Colonography (combo) [code = CT Colonography (combo)] [facility] Future Scheduled Test 1972 00:00:00 Screening for malignant neoplasm of colon (procedure) [code = 991294952] [facility] Future Scheduled Test 1972 00:00:00 Screening for malignant neoplasm of colon (procedure) [code = 907936590] [facility] Future Scheduled Test 1972 00:00:00 Screening for malignant neoplasm of colon (procedure) [code = 630011723] [facility] Future Scheduled Test 1972 00:00:00 Screening for malignant neoplasm of colon (procedure) [code = 619660715] [facility] Future Scheduled Test 1972 00:00:00 Sigmoidoscopy [code = Sigmoidoscopy] [facility] Future Scheduled Test 1972 00:00:00 Screening for malignant neoplasm of breast (procedure) [code = 557875686] [facility] Future Scheduled Test 1972 00:00:00 CT Colonography (combo) [code = CT Colonography (combo)] [facility] Future Scheduled Test 1972 00:00:00 Screening for malignant neoplasm of colon (procedure) [code = 383599116] [facility] Future Scheduled Test 1972 00:00:00 Screening for malignant neoplasm of colon (procedure) [code = 787755493] [facility] Future Scheduled Test 1972 00:00:00 Screening for malignant neoplasm of colon (procedure) [code = 544488359] [facility] Future Scheduled Test 1972 00:00:00 Screening for malignant neoplasm of colon (procedure) [code = 552845639] [facility] Future Scheduled Test 1972 00:00:00 Sigmoidoscopy [code = Sigmoidoscopy] [facility] Future Scheduled Test 1972 00:00:00 Screening for malignant neoplasm of breast (procedure) [code = 487357564] [facility] Future Scheduled Test 1972 00:00:00 CT Colonography (combo) [code = CT Colonography (combo)] [facility] Future Scheduled Test 1972 00:00:00 Screening for malignant neoplasm of colon (procedure) [code = 699438952] [facility] Future Scheduled Test 1972 00:00:00 Screening for malignant neoplasm of colon (procedure) [code = 029675811] [facility] Future Scheduled Test 1972 00:00:00 Screening for malignant neoplasm of colon (procedure) [code = 896908487] [facility] Future Scheduled Test 1972 00:00:00 Screening for malignant neoplasm of colon (procedure) [code = 248662694] [facility] Future Scheduled Test 1972 00:00:00 Sigmoidoscopy [code = Sigmoidoscopy] [facility] Future Scheduled Test 1972 00:00:00 Screening for malignant neoplasm of breast (procedure) [code = 707238645] [facility] Future Scheduled Test 1972 00:00:00 CT Colonography (combo) [code = CT Colonography (combo)] [facility] Future Scheduled Test 1972 00:00:00 Screening for malignant neoplasm of colon (procedure) [code = 245401237] [facility] Future Scheduled Test 1972 00:00:00 Screening for malignant neoplasm of colon (procedure) [code = 527732261] [facility] Future Scheduled Test 1972 00:00:00 Screening for malignant neoplasm of colon (procedure) [code = 482679958] [facility] Future Scheduled Test 1972 00:00:00 Screening for malignant neoplasm of colon (procedure) [code = 151160380] [facility] Future Scheduled Test 1972 00:00:00 Sigmoidoscopy [code = Sigmoidoscopy] [facility] Future Scheduled Test 1972 00:00:00 Screening for malignant neoplasm of breast (procedure) [code = 220762363] [facility] Future Scheduled Test 1972 00:00:00 CT Colonography (combo) [code = CT Colonography (combo)] [facility] Future Scheduled Test 1972 00:00:00 Screening for malignant neoplasm of colon (procedure) [code = 214933262] [facility] Future Scheduled Test 1972 00:00:00 Screening for malignant neoplasm of colon (procedure) [code = 546338467] [facility] Future Scheduled Test 1972 00:00:00 Screening for malignant neoplasm of colon (procedure) [code = 106033748] [facility] Future Scheduled Test 1972 00:00:00 Screening for malignant neoplasm of colon (procedure) [code = 445171194] [facility] Future Scheduled Test 1972 00:00:00 Sigmoidoscopy [code = Sigmoidoscopy] [facility] Future Scheduled Test 1972 00:00:00 Screening for malignant neoplasm of breast (procedure) [code = 673656495] [facility] Future Scheduled Test 1972 00:00:00 CT Colonography (combo) [code = CT Colonography (combo)] [facility] Future Scheduled Test 1972 00:00:00 Screening for malignant neoplasm of colon (procedure) [code = 887625404] [facility] Future Scheduled Test 1972 00:00:00 Screening for malignant neoplasm of colon (procedure) [code = 720175816] [facility] Future Scheduled Test 1972 00:00:00 Screening for malignant neoplasm of colon (procedure) [code = 874695517] [facility] Future Scheduled Test 1972 00:00:00 Screening for malignant neoplasm of colon (procedure) [code = 714853069] [facility] Future Scheduled Test 1972 00:00:00 Sigmoidoscopy [code = Sigmoidoscopy] [facility] Future Scheduled Test 1972 00:00:00 Screening for malignant neoplasm of breast (procedure) [code = 884096041] [facility] Future Scheduled Test 1972 00:00:00 CT Colonography (combo) [code = CT Colonography (combo)] [facility] Future Scheduled Test 1972 00:00:00 Screening for malignant neoplasm of colon (procedure) [code = 828012559] [facility] Future Scheduled Test 1972 00:00:00 Screening for malignant neoplasm of colon (procedure) [code = 175017683] [facility] Future Scheduled Test 1972 00:00:00 Screening for malignant neoplasm of colon (procedure) [code = 391456994] [facility] Future Scheduled Test 1972 00:00:00 Screening for malignant neoplasm of colon (procedure) [code = 563055565] [facility] Future Scheduled Test 1972 00:00:00 Sigmoidoscopy [code = Sigmoidoscopy] [facility] Future Scheduled Test 1972 00:00:00 Screening for malignant neoplasm of breast (procedure) [code = 466794421] [facility] Future Scheduled Test 1972 00:00:00 CT Colonography (combo) [code = CT Colonography (combo)] [facility] Future Scheduled Test 1972 00:00:00 Screening for malignant neoplasm of colon (procedure) [code = 080253750] [facility] Future Scheduled Test 1972 00:00:00 Screening for malignant neoplasm of colon (procedure) [code = 736405491] [facility] Future Scheduled Test 1972 00:00:00 Screening for malignant neoplasm of colon (procedure) [code = 830620402] [facility] Future Scheduled Test 1972 00:00:00 Screening for malignant neoplasm of colon (procedure) [code = 973825096] [facility] Future Scheduled Test 1972 00:00:00 Sigmoidoscopy [code = Sigmoidoscopy] [facility] Future Scheduled Test 1972 00:00:00 Screening for malignant neoplasm of breast (procedure) [code = 829324682] [facility] Future Scheduled Test 1972 00:00:00 CT Colonography (combo) [code = CT Colonography (combo)] [facility] Future Scheduled Test 1972 00:00:00 Screening for malignant neoplasm of colon (procedure) [code = 482247487] [facility] Future Scheduled Test 1972 00:00:00 Screening for malignant neoplasm of colon (procedure) [code = 722720193] [facility] Future Scheduled Test 1972 00:00:00 Screening for malignant neoplasm of colon (procedure) [code = 060127696] [facility] Future Scheduled Test 1972 00:00:00 Screening for malignant neoplasm of colon (procedure) [code = 122266150] [facility] Future Scheduled Test 1972 00:00:00 Sigmoidoscopy [code = Sigmoidoscopy] [facility] Future Scheduled Test 1972 00:00:00 Screening for malignant neoplasm of breast (procedure) [code = 153725537] [facility] Future Scheduled Test 1972 00:00:00 CT Colonography (combo) [code = CT Colonography (combo)] [facility] Future Scheduled Test 1972 00:00:00 Screening for malignant neoplasm of breast (procedure) [code = 295428370] [facility] Future Scheduled Test 1972 00:00:00 CT Colonography (combo) [code = CT Colonography (combo)] [facility] Future Scheduled Test 1972 00:00:00 Screening for malignant neoplasm of colon (procedure) [code = 866631151] [facility] Future Scheduled Test 1972 00:00:00 Screening for malignant neoplasm of colon (procedure) [code = 692069872] [facility] Future Scheduled Test 1972 00:00:00 Screening for malignant neoplasm of colon (procedure) [code = 104553917] [facility] Future Scheduled Test 1972 00:00:00 Screening for malignant neoplasm of colon (procedure) [code = 747109738] [facility] Future Scheduled Test 1972 00:00:00 Sigmoidoscopy [code = Sigmoidoscopy] [facility] Future Scheduled Test 1972 00:00:00 Screening for malignant neoplasm of colon (procedure) [code = 319929673] [facility] Future Scheduled Test 1972 00:00:00 Screening for malignant neoplasm of colon (procedure) [code = 390099724] [facility] Future Scheduled Test 1972 00:00:00 Screening for malignant neoplasm of colon (procedure) [code = 971860391] [facility] Future Scheduled Test 1972 00:00:00 Screening for malignant neoplasm of colon (procedure) [code = 012279183] [facility] Future Scheduled Test 1972 00:00:00 Sigmoidoscopy [code = Sigmoidoscopy] [facility] Future Scheduled Test 1972 00:00:00 Screening for malignant neoplasm of breast (procedure) [code = 415836435] [facility] Future Scheduled Test 1972 00:00:00 CT Colonography (combo) [code = CT Colonography (combo)] [facility] Future Scheduled Test 1972 00:00:00 Screening for malignant neoplasm of colon (procedure) [code = 953920583] [facility] Future Scheduled Test 1972 00:00:00 Screening for malignant neoplasm of colon (procedure) [code = 330148427] [facility] Future Scheduled Test 1972 00:00:00 Screening for malignant neoplasm of colon (procedure) [code = 359455109] [facility] Future Scheduled Test 1972 00:00:00 Screening for malignant neoplasm of colon (procedure) [code = 704802916] [facility] Future Scheduled Test 1972 00:00:00 Sigmoidoscopy [code = Sigmoidoscopy] [facility] Future Scheduled Test 1972 00:00:00 Screening for malignant neoplasm of breast (procedure) [code = 908945482] [facility] Future Scheduled Test 1972 00:00:00 CT Colonography (combo) [code = CT Colonography (combo)] [facility] Future Scheduled Test 1972 00:00:00 Screening for malignant neoplasm of colon (procedure) [code = 156737358] [facility] Future Scheduled Test 1972 00:00:00 Screening for malignant neoplasm of colon (procedure) [code = 029813272] [facility] Future Scheduled Test 1972 00:00:00 Screening for malignant neoplasm of colon (procedure) [code = 215258597] [facility] Future Scheduled Test 1972 00:00:00 Screening for malignant neoplasm of colon (procedure) [code = 770171932] [facility] Future Scheduled Test 1972 00:00:00 Sigmoidoscopy [code = Sigmoidoscopy] [facility] Future Scheduled Test 1972 00:00:00 Screening for malignant neoplasm of breast (procedure) [code = 471784090] [facility] Future Scheduled Test 1972 00:00:00 CT Colonography (combo) [code = CT Colonography (combo)] [facility] Future Scheduled Test 1972 00:00:00 Screening for malignant neoplasm of colon (procedure) [code = 758538676] [facility] Future Scheduled Test 1972 00:00:00 Screening for malignant neoplasm of colon (procedure) [code = 254752311] [facility] Future Scheduled Test 1972 00:00:00 Screening for malignant neoplasm of colon (procedure) [code = 725521471] [facility] Future Scheduled Test 1972 00:00:00 Screening for malignant neoplasm of colon (procedure) [code = 678995453] [facility] Future Scheduled Test 1972 00:00:00 Sigmoidoscopy [code = Sigmoidoscopy] [facility] Future Scheduled Test 1972 00:00:00 Screening for malignant neoplasm of breast (procedure) [code = 371030034] [facility] Future Scheduled Test 1972 00:00:00 CT Colonography (combo) [code = CT Colonography (combo)] [facility] Future Scheduled Test 1972 00:00:00 Screening for malignant neoplasm of colon (procedure) [code = 706623465] [facility] Future Scheduled Test 1972 00:00:00 Screening for malignant neoplasm of colon (procedure) [code = 205928910] [facility] Future Scheduled Test 1972 00:00:00 Screening for malignant neoplasm of colon (procedure) [code = 105971536] [facility] Future Scheduled Test 1972 00:00:00 Screening for malignant neoplasm of colon (procedure) [code = 378841192] [facility] Future Scheduled Test 1972 00:00:00 Sigmoidoscopy [code = Sigmoidoscopy] [facility] Future Scheduled Test 1972 00:00:00 Screening for malignant neoplasm of breast (procedure) [code = 900311344] [facility] Future Scheduled Test 1972 00:00:00 CT Colonography (combo) [code = CT Colonography (combo)] [facility] Future Scheduled Test 1972 00:00:00 Screening for malignant neoplasm of colon (procedure) [code = 851697241] [facility] Future Scheduled Test 1972 00:00:00 Screening for malignant neoplasm of colon (procedure) [code = 653606955] [facility] Future Scheduled Test 1972 00:00:00 Screening for malignant neoplasm of colon (procedure) [code = 066537434] [facility] Future Scheduled Test 1972 00:00:00 Screening for malignant neoplasm of colon (procedure) [code = 770708638] [facility] Future Scheduled Test 1972 00:00:00 Sigmoidoscopy [code = Sigmoidoscopy] [facility] Future Scheduled Test 1972 00:00:00 Screening for malignant neoplasm of breast (procedure) [code = 899817634] [facility] Future Scheduled Test 1972 00:00:00 CT Colonography (combo) [code = CT Colonography (combo)] [facility] Future Scheduled Test 1972 00:00:00 Screening for malignant neoplasm of colon (procedure) [code = 935306096] [facility] Future Scheduled Test 1972 00:00:00 Screening for malignant neoplasm of colon (procedure) [code = 804262722] [facility] Future Scheduled Test 1972 00:00:00 Screening for malignant neoplasm of colon (procedure) [code = 432310657] [facility] Future Scheduled Test 1972 00:00:00 Screening for malignant neoplasm of colon (procedure) [code = 451651954] [facility] Future Scheduled Test 1972 00:00:00 Sigmoidoscopy [code = Sigmoidoscopy] [facility] Future Scheduled Test 1972 00:00:00 Screening for malignant neoplasm of breast (procedure) [code = 553765058] [facility] Future Scheduled Test 1972 00:00:00 CT Colonography (combo) [code = CT Colonography (combo)] [facility] Future Scheduled Test 1972 00:00:00 Screening for malignant neoplasm of colon (procedure) [code = 113100925] [facility] Future Scheduled Test 1972 00:00:00 Screening for malignant neoplasm of colon (procedure) [code = 653122538] [facility] Future Scheduled Test 1972 00:00:00 Screening for malignant neoplasm of colon (procedure) [code = 098305569] [facility] Future Scheduled Test 1972 00:00:00 Screening for malignant neoplasm of colon (procedure) [code = 607825378] [facility] Future Scheduled Test 1972 00:00:00 Screening for malignant neoplasm of breast (procedure) [code = 056558363] [facility] Future Scheduled Test 1972 00:00:00 CT Colonography (combo) [code = CT Colonography (combo)] [facility] Future Scheduled Test 1972 00:00:00 Sigmoidoscopy [code = Sigmoidoscopy] [facility] Future Scheduled Test 1972 00:00:00 Screening for malignant neoplasm of colon (procedure) [code = 146272963] [facility] Future Scheduled Test 1972 00:00:00 Screening for malignant neoplasm of colon (procedure) [code = 305962905] [facility] Future Scheduled Test 1972 00:00:00 Screening for malignant neoplasm of colon (procedure) [code = 227942871] [facility] Future Scheduled Test 1972 00:00:00 Screening for malignant neoplasm of colon (procedure) [code = 443571724] [facility] Future Scheduled Test 1972 00:00:00 Sigmoidoscopy [code = Sigmoidoscopy] [facility] Future Scheduled Test 1972 00:00:00 Screening for malignant neoplasm of breast (procedure) [code = 575471651] [facility] Future Scheduled Test 1972 00:00:00 CT Colonography (combo) [code = CT Colonography (combo)] [facility] Future Scheduled Test 1972 00:00:00 Screening for malignant neoplasm of colon (procedure) [code = 226445238] [facility] Future Scheduled Test 1972 00:00:00 Screening for malignant neoplasm of colon (procedure) [code = 740617025] [facility] Future Scheduled Test 1972 00:00:00 Screening for malignant neoplasm of colon (procedure) [code = 345001245] [facility] Future Scheduled Test 1972 00:00:00 Screening for malignant neoplasm of colon (procedure) [code = 885508023] [facility] Future Scheduled Test 1972 00:00:00 Sigmoidoscopy [code = Sigmoidoscopy] [facility] Future Scheduled Test 1972 00:00:00 Screening for malignant neoplasm of breast (procedure) [code = 436979922] [facility] Future Scheduled Test 1972 00:00:00 CT Colonography (combo) [code = CT Colonography (combo)] [facility] Future Scheduled Test 1972 00:00:00 Screening for malignant neoplasm of colon (procedure) [code = 535154509] [facility] Future Scheduled Test 1972 00:00:00 Screening for malignant neoplasm of colon (procedure) [code = 552233177] [facility] Future Scheduled Test 1972 00:00:00 Screening for malignant neoplasm of colon (procedure) [code = 335324234] [facility] Future Scheduled Test 1972 00:00:00 Screening for malignant neoplasm of colon (procedure) [code = 195430538] [facility] Future Scheduled Test 1972 00:00:00 Sigmoidoscopy [code = Sigmoidoscopy] [facility] Future Scheduled Test 1972 00:00:00 Screening for malignant neoplasm of breast (procedure) [code = [id number]] [facility] Future Scheduled Test 1972 00:00:00 CT Colonography (combo) [code = CT Colonography (combo)] [facility] Future Scheduled Test 1972 00:00:00 Screening for malignant neoplasm of colon (procedure) [code = 489544325] [facility] Future Scheduled Test 1972 00:00:00 Screening for malignant neoplasm of colon (procedure) [code = 321316591] [facility] Future Scheduled Test 1972 00:00:00 Screening for malignant neoplasm of colon (procedure) [code = 674562081] [facility] Future Scheduled Test 1972 00:00:00 Screening for malignant neoplasm of colon (procedure) [code = [id number]] [facility] Future Scheduled Test 1972 00:00:00 Sigmoidoscopy [code = Sigmoidoscopy] [facility] Future Scheduled Test 1972 00:00:00 Screening for malignant neoplasm of breast (procedure) [code = 832411858] [facility] Future Scheduled Test 1972 00:00:00 CT Colonography (combo) [code = CT Colonography (combo)] [facility] Future Scheduled Test 1972 00:00:00 Screening for malignant neoplasm of colon (procedure) [code = [id number]] [facility] Future Scheduled Test 1972 00:00:00 Screening for malignant neoplasm of colon (procedure) [code = 036677931] [facility] Future Scheduled Test 1972 00:00:00 Screening for malignant neoplasm of colon (procedure) [code = 605792526] [facility] Future Scheduled Test 1972 00:00:00 Screening for malignant neoplasm of colon (procedure) [code = 438291410] [facility] Future Scheduled Test 1972 00:00:00 Sigmoidoscopy [code = Sigmoidoscopy] [facility] Future Scheduled Test 1972 00:00:00 Screening for malignant neoplasm of breast (procedure) [code = 210547368] [facility] Future Scheduled Test 1972 00:00:00 CT Colonography (combo) [code = CT Colonography (combo)] [facility] Future Scheduled Test 1972 00:00:00 Screening for malignant neoplasm of colon (procedure) [code = [id number]] [facility] Future Scheduled Test 1972 00:00:00 Screening for malignant neoplasm of colon (procedure) [code = 731847124] [facility] Future Scheduled Test 1972 00:00:00 Screening for malignant neoplasm of colon (procedure) [code = 036589766] [facility] Future Scheduled Test 1972 00:00:00 Screening for malignant neoplasm of colon (procedure) [code = 415738508] [facility] Future Scheduled Test 1972 00:00:00 Sigmoidoscopy [code = Sigmoidoscopy] [facility] Future Scheduled Test 1972 00:00:00 Screening for malignant neoplasm of breast (procedure) [code = 989882675] [facility] Future Scheduled Test 1972 00:00:00 CT Colonography (combo) [code = CT Colonography (combo)] [facility] Future Scheduled Test 1972 00:00:00 Screening for malignant neoplasm of colon (procedure) [code = 543879648] [facility] Future Scheduled Test 1972 00:00:00 Screening for malignant neoplasm of colon (procedure) [code = 066414429] [facility] Future Scheduled Test 1972 00:00:00 Screening for malignant neoplasm of breast (procedure) [code = 941554446] [facility] Future Scheduled Test 1972 00:00:00 Screening for malignant neoplasm of colon (procedure) [code = 344848714] [facility] Future Scheduled Test 1972 00:00:00 CT Colonography (combo) [code = CT Colonography (combo)] [facility] Future Scheduled Test 1972 00:00:00 Screening for malignant neoplasm of colon (procedure) [code = 873114013] [facility] Future Scheduled Test 1972 00:00:00 Screening for malignant neoplasm of colon (procedure) [code = 318617371] [facility] Future Scheduled Test 1972 00:00:00 Screening for malignant neoplasm of colon (procedure) [code = 869268937] [facility] Future Scheduled Test 1972 00:00:00 Screening for malignant neoplasm of colon (procedure) [code = 760325670] [facility] Future Scheduled Test 1972 00:00:00 Sigmoidoscopy [code = Sigmoidoscopy] [facility] Future Scheduled Test 1972 00:00:00 Screening for malignant neoplasm of colon (procedure) [code = 112621681] [facility] Future Scheduled Test 1972 00:00:00 Sigmoidoscopy [code = Sigmoidoscopy] [facility] Future Scheduled Test 1972 00:00:00 Screening for malignant neoplasm of breast (procedure) [code = 167541415] [facility] Future Scheduled Test 1972 00:00:00 CT Colonography (combo) [code = CT Colonography (combo)] [facility] Future Scheduled Test 1972 00:00:00 Screening for malignant neoplasm of colon (procedure) [code = 945742686] [facility] Future Scheduled Test 1972 00:00:00 Screening for malignant neoplasm of colon (procedure) [code = 287344158] [facility] Future Scheduled Test 1972 00:00:00 Screening for malignant neoplasm of colon (procedure) [code = 245584208] [facility] Future Scheduled Test 1972 00:00:00 Screening for malignant neoplasm of colon (procedure) [code = 385902850] [facility] Future Scheduled Test 1972 00:00:00 Sigmoidoscopy [code = Sigmoidoscopy] [facility] Future Scheduled Test 1972 00:00:00 Screening for malignant neoplasm of breast (procedure) [code = 454651217] [facility] Future Scheduled Test 1972 00:00:00 CT Colonography (combo) [code = CT Colonography (combo)] [facility] Future Scheduled Test 1972 00:00:00 Screening for malignant neoplasm of colon (procedure) [code = 736486838] [facility] Future Scheduled Test 1972 00:00:00 Screening for malignant neoplasm of colon (procedure) [code = 676341575] [facility] Future Scheduled Test 1972 00:00:00 Screening for malignant neoplasm of colon (procedure) [code = 858470844] [facility] Future Scheduled Test 1972 00:00:00 Screening for malignant neoplasm of colon (procedure) [code = 774114621] [facility] Future Scheduled Test 1972 00:00:00 Sigmoidoscopy [code = Sigmoidoscopy] [facility] Future Scheduled Test 1972 00:00:00 Screening for malignant neoplasm of breast (procedure) [code = 143954034] [facility] Future Scheduled Test 1972 00:00:00 CT Colonography (combo) [code = CT Colonography (combo)] [facility] Future Scheduled Test 1972 00:00:00 Screening for malignant neoplasm of colon (procedure) [code = 039083517] [facility] Future Scheduled Test 1972 00:00:00 Screening for malignant neoplasm of colon (procedure) [code = 531988450] [facility] Future Scheduled Test 1972 00:00:00 Screening for malignant neoplasm of colon (procedure) [code = 704659585] [facility] Future Scheduled Test 1972 00:00:00 Screening for malignant neoplasm of colon (procedure) [code = 339226001] [facility] Future Scheduled Test 1972 00:00:00 Sigmoidoscopy [code = Sigmoidoscopy] [facility] Future Scheduled Test 1972 00:00:00 Screening for malignant neoplasm of breast (procedure) [code = 907398743] [facility] Future Scheduled Test 1972 00:00:00 CT Colonography (combo) [code = CT Colonography (combo)] [facility] Future Scheduled Test 1972 00:00:00 Screening for malignant neoplasm of colon (procedure) [code = 691020572] [facility] Future Scheduled Test 1972 00:00:00 Screening for malignant neoplasm of colon (procedure) [code = 004042840] [facility] Future Scheduled Test 1972 00:00:00 Screening for malignant neoplasm of colon (procedure) [code = 467568989] [facility] Future Scheduled Test 1972 00:00:00 Screening for malignant neoplasm of colon (procedure) [code = 632128864] [facility] Future Scheduled Test 1972 00:00:00 Sigmoidoscopy [code = Sigmoidoscopy] [facility] Future Scheduled Test 1972 00:00:00 Screening for malignant neoplasm of breast (procedure) [code = 259900996] [facility] Future Scheduled Test 1972 00:00:00 CT Colonography (combo) [code = CT Colonography (combo)] [facility] Future Scheduled Test 1972 00:00:00 Screening for malignant neoplasm of colon (procedure) [code = 417527154] [facility] Future Scheduled Test 1972 00:00:00 Screening for malignant neoplasm of colon (procedure) [code = 874812113] [facility] Future Scheduled Test 1972 00:00:00 Screening for malignant neoplasm of colon (procedure) [code = 520547342] [facility] Future Scheduled Test 1972 00:00:00 Screening for malignant neoplasm of colon (procedure) [code = 887911797] [facility] Future Scheduled Test 1972 00:00:00 Sigmoidoscopy [code = Sigmoidoscopy] [facility] Future Scheduled Test 1972 00:00:00 Screening for malignant neoplasm of breast (procedure) [code = 838045336] [facility] Future Scheduled Test 1972 00:00:00 CT Colonography (combo) [code = CT Colonography (combo)] [facility] Future Scheduled Test 1972 00:00:00 Screening for malignant neoplasm of colon (procedure) [code = 529858097] [facility] Future Scheduled Test 1972 00:00:00 Screening for malignant neoplasm of colon (procedure) [code = 235077567] [facility] Future Scheduled Test 1972 00:00:00 Screening for malignant neoplasm of colon (procedure) [code = 817172283] [facility] Future Scheduled Test 1972 00:00:00 Screening for malignant neoplasm of colon (procedure) [code = 952668300] [facility] Future Scheduled Test 1972 00:00:00 Sigmoidoscopy [code = Sigmoidoscopy] [facility] Future Scheduled Test 1972 00:00:00 Screening for malignant neoplasm of breast (procedure) [code = 484353340] [facility] Future Scheduled Test 1972 00:00:00 CT Colonography (combo) [code = CT Colonography (combo)] [facility] Future Scheduled Test 1972 00:00:00 Screening for malignant neoplasm of colon (procedure) [code = 954386742] [facility] Future Scheduled Test 1972 00:00:00 Screening for malignant neoplasm of colon (procedure) [code = 282401358] [facility] Future Scheduled Test 1972 00:00:00 Screening for malignant neoplasm of colon (procedure) [code = 154888166] [facility] Future Scheduled Test 1972 00:00:00 Screening for malignant neoplasm of colon (procedure) [code = 801130268] [facility] Future Scheduled Test 1972 00:00:00 Sigmoidoscopy [code = Sigmoidoscopy] [facility] Future Scheduled Test 1972 00:00:00 Screening for malignant neoplasm of breast (procedure) [code = 925400217] [facility] Future Scheduled Test 1972 00:00:00 CT Colonography (combo) [code = CT Colonography (combo)] [facility] Future Scheduled Test 1972 00:00:00 Screening for malignant neoplasm of colon (procedure) [code = 407273109] [facility] Future Scheduled Test 1972 00:00:00 Screening for malignant neoplasm of colon (procedure) [code = 430349416] [facility] Future Scheduled Test 1972 00:00:00 Screening for malignant neoplasm of colon (procedure) [code = 535142464] [facility] Future Scheduled Test 1972 00:00:00 Screening for malignant neoplasm of colon (procedure) [code = 523507174] [facility] Future Scheduled Test 1972 00:00:00 Sigmoidoscopy [code = Sigmoidoscopy] [facility] Future Scheduled Test 1972 00:00:00 Screening for malignant neoplasm of breast (procedure) [code = 338814938] [facility] Future Scheduled Test 1972 00:00:00 CT Colonography (combo) [code = CT Colonography (combo)] [facility] Future Scheduled Test 1972 00:00:00 Screening for malignant neoplasm of colon (procedure) [code = 902701000] [facility] Future Scheduled Test 1972 00:00:00 Screening for malignant neoplasm of colon (procedure) [code = 310155119] [facility] Future Scheduled Test 1972 00:00:00 Screening for malignant neoplasm of colon (procedure) [code = 807427163] [facility] Future Scheduled Test 1972 00:00:00 Screening for malignant neoplasm of colon (procedure) [code = 673501189] [facility] Future Scheduled Test 1972 00:00:00 Sigmoidoscopy [code = Sigmoidoscopy] [facility] Future Scheduled Test 1972 00:00:00 Screening for malignant neoplasm of breast (procedure) [code = 575641266] [facility] Future Scheduled Test 1972 00:00:00 CT Colonography (combo) [code = CT Colonography (combo)] [facility] Future Scheduled Test 1972 00:00:00 Screening for malignant neoplasm of colon (procedure) [code = 087252504] [facility] Future Scheduled Test 1972 00:00:00 Screening for malignant neoplasm of colon (procedure) [code = 208284585] [facility] Future Scheduled Test 1972 00:00:00 Screening for malignant neoplasm of colon (procedure) [code = 800319972] [facility] Future Scheduled Test 1972 00:00:00 Screening for malignant neoplasm of colon (procedure) [code = 865860527] [facility] Future Scheduled Test 1972 00:00:00 Sigmoidoscopy [code = Sigmoidoscopy] [facility] Future Scheduled Test 1972 00:00:00 Screening for malignant neoplasm of breast (procedure) [code = 461908381] [facility] Future Scheduled Test 1972 00:00:00 CT Colonography (combo) [code = CT Colonography (combo)] [facility] Future Scheduled Test 1972 00:00:00 Screening for malignant neoplasm of colon (procedure) [code = 658346702] [facility] Future Scheduled Test 1972 00:00:00 Screening for malignant neoplasm of breast (procedure) [code = 913719938] [facility] Future Scheduled Test 1972 00:00:00 CT Colonography (combo) [code = CT Colonography (combo)] [facility] Future Scheduled Test 1972 00:00:00 Screening for malignant neoplasm of colon (procedure) [code = 442154990] [facility] Future Scheduled Test 1972 00:00:00 Screening for malignant neoplasm of colon (procedure) [code = 172084767] [facility] Future Scheduled Test 1972 00:00:00 Screening for malignant neoplasm of colon (procedure) [code = 425630306] [facility] Future Scheduled Test 1972 00:00:00 Screening for malignant neoplasm of colon (procedure) [code = 026748679] [facility] Future Scheduled Test 1972 00:00:00 Sigmoidoscopy [code = Sigmoidoscopy] [facility] Future Scheduled Test 1972 00:00:00 Screening for malignant neoplasm of colon (procedure) [code = 590713095] [facility] Future Scheduled Test 1972 00:00:00 Screening for malignant neoplasm of colon (procedure) [code = 991982770] [facility] Future Scheduled Test 1972 00:00:00 Screening for malignant neoplasm of colon (procedure) [code = 821465543] [facility] Future Scheduled Test 1972 00:00:00 Sigmoidoscopy [code = Sigmoidoscopy] [facility] Future Scheduled Test 1972 00:00:00 Screening for malignant neoplasm of breast (procedure) [code = 980901654] [facility] Future Scheduled Test 1972 00:00:00 CT Colonography (combo) [code = CT Colonography (combo)] [facility] Future Scheduled Test 1972 00:00:00 Screening for malignant neoplasm of colon (procedure) [code = 948280570] [facility] Future Scheduled Test 1972 00:00:00 Screening for malignant neoplasm of colon (procedure) [code = 138319846] [facility] Future Scheduled Test 1972 00:00:00 Screening for malignant neoplasm of colon (procedure) [code = 099474035] [facility] Future Scheduled Test 1972 00:00:00 Screening for malignant neoplasm of colon (procedure) [code = 237425472] [facility] Future Scheduled Test 1972 00:00:00 Sigmoidoscopy [code = Sigmoidoscopy] [facility] Future Scheduled Test 1972 00:00:00 Screening for malignant neoplasm of breast (procedure) [code = 971760888] [facility] Future Scheduled Test 1972 00:00:00 CT Colonography (combo) [code = CT Colonography (combo)] [facility] Future Scheduled Test 1972 00:00:00 Screening for malignant neoplasm of colon (procedure) [code = 119042025] [facility] Future Scheduled Test 1972 00:00:00 Screening for malignant neoplasm of colon (procedure) [code = 642342945] [facility] Future Scheduled Test 1972 00:00:00 Screening for malignant neoplasm of colon (procedure) [code = 987667418] [facility] Future Scheduled Test 1972 00:00:00 Screening for malignant neoplasm of colon (procedure) [code = 313079210] [facility] Future Scheduled Test 1972 00:00:00 Sigmoidoscopy [code = Sigmoidoscopy] [facility] Future Scheduled Test 1972 00:00:00 Screening for malignant neoplasm of breast (procedure) [code = 687540763] [facility] Future Scheduled Test 1972 00:00:00 CT Colonography (combo) [code = CT Colonography (combo)] [facility] Future Scheduled Test 1972 00:00:00 Screening for malignant neoplasm of colon (procedure) [code = 178649447] [facility] Future Scheduled Test 1972 00:00:00 Screening for malignant neoplasm of colon (procedure) [code = 662018184] [facility] Future Scheduled Test 1972 00:00:00 Screening for malignant neoplasm of colon (procedure) [code = 070532885] [facility] Future Scheduled Test 1972 00:00:00 Screening for malignant neoplasm of colon (procedure) [code = 521714590] [facility] Future Scheduled Test 1972 00:00:00 Sigmoidoscopy [code = Sigmoidoscopy] [facility] Future Scheduled Test 1972 00:00:00 Screening for malignant neoplasm of breast (procedure) [code = 928858988] [facility] Future Scheduled Test 1972 00:00:00 CT Colonography (combo) [code = CT Colonography (combo)] [facility] Future Scheduled Test 1972 00:00:00 Screening for malignant neoplasm of colon (procedure) [code = 155718046] [facility] Future Scheduled Test 1972 00:00:00 Screening for malignant neoplasm of colon (procedure) [code = 864940062] [facility] Future Scheduled Test 1972 00:00:00 Screening for malignant neoplasm of colon (procedure) [code = 114866631] [facility] Future Scheduled Test 1972 00:00:00 Screening for malignant neoplasm of colon (procedure) [code = 343172455] [facility] Future Scheduled Test 1972 00:00:00 Sigmoidoscopy [code = Sigmoidoscopy] [facility] Future Scheduled Test 1972 00:00:00 Screening for malignant neoplasm of breast (procedure) [code = 803977253] [facility] Future Scheduled Test 1972 00:00:00 CT Colonography (combo) [code = CT Colonography (combo)] [facility] Future Scheduled Test 1972 00:00:00 Screening for malignant neoplasm of colon (procedure) [code = 231733668] [facility] Future Scheduled Test 1972 00:00:00 Screening for malignant neoplasm of colon (procedure) [code = 062809148] [facility] Future Scheduled Test 1972 00:00:00 Screening for malignant neoplasm of colon (procedure) [code = 039984437] [facility] Future Scheduled Test 1972 00:00:00 Screening for malignant neoplasm of colon (procedure) [code = 506045134] [facility] Future Scheduled Test 1972 00:00:00 Screening for malignant neoplasm of breast (procedure) [code = 050873824] [facility] Future Scheduled Test 1972 00:00:00 Sigmoidoscopy [code = Sigmoidoscopy] [facility] Future Scheduled Test 1972 00:00:00 CT Colonography (combo) [code = CT Colonography (combo)] [facility] Future Scheduled Test 1972 00:00:00 Screening for malignant neoplasm of colon (procedure) [code = 185734788] [facility] Future Scheduled Test 1972 00:00:00 Screening for malignant neoplasm of breast (procedure) [code = 825223559] [facility] Future Scheduled Test 1972 00:00:00 CT Colonography (combo) [code = CT Colonography (combo)] [facility] Future Scheduled Test 1972 00:00:00 Screening for malignant neoplasm of colon (procedure) [code = 722388357] [facility] Future Scheduled Test 1972 00:00:00 Screening for malignant neoplasm of colon (procedure) [code = 514386492] [facility] Future Scheduled Test 1972 00:00:00 Screening for malignant neoplasm of colon (procedure) [code = 802719743] [facility] Future Scheduled Test 1972 00:00:00 Screening for malignant neoplasm of colon (procedure) [code = 854463176] [facility] Future Scheduled Test 1972 00:00:00 Screening for malignant neoplasm of colon (procedure) [code = 789083292] [facility] Future Scheduled Test 1972 00:00:00 Sigmoidoscopy [code = Sigmoidoscopy] [facility] Future Scheduled Test 1972 00:00:00 Screening for malignant neoplasm of colon (procedure) [code = 980257760] [facility] Future Scheduled Test 1972 00:00:00 Screening for malignant neoplasm of colon (procedure) [code = 421753504] [facility] Future Scheduled Test 1972 00:00:00 Screening for malignant neoplasm of breast (procedure) [code = 659339715] [facility] Future Scheduled Test 1972 00:00:00 CT Colonography (combo) [code = CT Colonography (combo)] [facility] Future Scheduled Test 1972 00:00:00 Screening for malignant neoplasm of colon (procedure) [code = 630874185] [facility] Future Scheduled Test 1972 00:00:00 Screening for malignant neoplasm of colon (procedure) [code = 511434651] [facility] Future Scheduled Test 1972 00:00:00 Sigmoidoscopy [code = Sigmoidoscopy] [facility] Future Scheduled Test 1972 00:00:00 Screening for malignant neoplasm of colon (procedure) [code = 403233305] [facility] Future Scheduled Test 1972 00:00:00 Screening for malignant neoplasm of colon (procedure) [code = 952378852] [facility] Future Scheduled Test 1972 00:00:00 Sigmoidoscopy [code = Sigmoidoscopy] [facility] Future Scheduled Test 1972 00:00:00 Screening for malignant neoplasm of breast (procedure) [code = 273169982] [facility] Future Scheduled Test 1972 00:00:00 CT Colonography (combo) [code = CT Colonography (combo)] [facility] Future Scheduled Test 1972 00:00:00 Screening for malignant neoplasm of colon (procedure) [code = 300284798] [facility] Future Scheduled Test 1972 00:00:00 Screening for malignant neoplasm of colon (procedure) [code = 550897853] [facility] Future Scheduled Test 1972 00:00:00 Screening for malignant neoplasm of colon (procedure) [code = 879450548] [facility] Future Scheduled Test 1972 00:00:00 Screening for malignant neoplasm of colon (procedure) [code = 269417207] [facility] Future Scheduled Test 1972 00:00:00 Sigmoidoscopy [code = Sigmoidoscopy] [facility] Future Scheduled Test 1972 00:00:00 Screening for malignant neoplasm of breast (procedure) [code = 100803177] [facility] Future Scheduled Test 1972 00:00:00 CT Colonography (combo) [code = CT Colonography (combo)] [facility] Future Scheduled Test 1972 00:00:00 Screening for malignant neoplasm of colon (procedure) [code = 187709241] [facility] Future Scheduled Test 1972 00:00:00 Screening for malignant neoplasm of colon (procedure) [code = 088368776] [facility] Future Scheduled Test 1972 00:00:00 Screening for malignant neoplasm of colon (procedure) [code = 587355959] [facility] Future Scheduled Test 1972 00:00:00 Screening for malignant neoplasm of colon (procedure) [code = 369188458] [facility] Future Scheduled Test 1972 00:00:00 Sigmoidoscopy [code = Sigmoidoscopy] [facility] Future Scheduled Test 1972 00:00:00 Screening for malignant neoplasm of breast (procedure) [code = 082772917] [facility] Future Scheduled Test 1972 00:00:00 CT Colonography (combo) [code = CT Colonography (combo)] [facility] Future Scheduled Test 1972 00:00:00 Screening for malignant neoplasm of colon (procedure) [code = 449512243] [facility] Future Scheduled Test 1972 00:00:00 Screening for malignant neoplasm of colon (procedure) [code = 938335028] [facility] Future Scheduled Test 1972 00:00:00 Screening for malignant neoplasm of colon (procedure) [code = 332566125] [facility] Future Scheduled Test 1972 00:00:00 Screening for malignant neoplasm of colon (procedure) [code = 499193405] [facility] Future Scheduled Test 1972 00:00:00 Sigmoidoscopy [code = Sigmoidoscopy] [facility] Future Scheduled Test 1972 00:00:00 Screening for malignant neoplasm of breast (procedure) [code = 343987767] [facility] Future Scheduled Test 1972 00:00:00 CT Colonography (combo) [code = CT Colonography (combo)] [facility] Future Scheduled Test 1972 00:00:00 Screening for malignant neoplasm of colon (procedure) [code = 073271991] [facility] Future Scheduled Test 1972 00:00:00 Screening for malignant neoplasm of colon (procedure) [code = 466016176] [facility] Future Scheduled Test 1972 00:00:00 Screening for malignant neoplasm of colon (procedure) [code = 765982689] [facility] Future Scheduled Test 1972 00:00:00 Screening for malignant neoplasm of colon (procedure) [code = 556831668] [facility] Future Scheduled Test 1972 00:00:00 Sigmoidoscopy [code = Sigmoidoscopy] [facility] Future Scheduled Test 1972 00:00:00 Screening for malignant neoplasm of breast (procedure) [code = 906498619] [facility] Future Scheduled Test 1972 00:00:00 CT Colonography (combo) [code = CT Colonography (combo)] [facility] Future Scheduled Test 1972 00:00:00 Screening for malignant neoplasm of colon (procedure) [code = 032331553] [facility] Future Scheduled Test 1972 00:00:00 Screening for malignant neoplasm of colon (procedure) [code = 856797017] [facility] Future Scheduled Test 1972 00:00:00 Screening for malignant neoplasm of colon (procedure) [code = 026417894] [facility] Future Scheduled Test 1972 00:00:00 Screening for malignant neoplasm of colon (procedure) [code = 679821708] [facility] Future Scheduled Test 1972 00:00:00 Sigmoidoscopy [code = Sigmoidoscopy] [facility] Future Scheduled Test 1972 00:00:00 Screening for malignant neoplasm of breast (procedure) [code = 780974922] [facility] Future Scheduled Test 1972 00:00:00 CT Colonography (combo) [code = CT Colonography (combo)] [facility] Future Scheduled Test 1972 00:00:00 Screening for malignant neoplasm of colon (procedure) [code = 012637996] [facility] Future Scheduled Test 1972 00:00:00 Screening for malignant neoplasm of colon (procedure) [code = 873296194] [facility] Future Scheduled Test 1972 00:00:00 Screening for malignant neoplasm of colon (procedure) [code = 715757612] [facility] Future Scheduled Test 1972 00:00:00 Screening for malignant neoplasm of colon (procedure) [code = 105635169] [facility] Future Scheduled Test 1972 00:00:00 Sigmoidoscopy [code = Sigmoidoscopy] [facility] Future Scheduled Test 1972 00:00:00 Screening for malignant neoplasm of breast (procedure) [code = 568977117] [facility] Future Scheduled Test 1972 00:00:00 CT Colonography (combo) [code = CT Colonography (combo)] [facility] Future Scheduled Test 1972 00:00:00 Screening for malignant neoplasm of colon (procedure) [code = 202207385] [facility] Future Scheduled Test 1972 00:00:00 Screening for malignant neoplasm of colon (procedure) [code = 951906741] [facility] Future Scheduled Test 1972 00:00:00 Screening for malignant neoplasm of colon (procedure) [code = 316982050] [facility] Future Scheduled Test 1972 00:00:00 Screening for malignant neoplasm of colon (procedure) [code = 288513630] [facility] Future Scheduled Test 1972 00:00:00 Sigmoidoscopy [code = Sigmoidoscopy] [facility] Future Scheduled Test 1972 00:00:00 Screening for malignant neoplasm of breast (procedure) [code = 239459588] [facility] Future Scheduled Test 1972 00:00:00 CT Colonography (combo) [code = CT Colonography (combo)] [facility] Future Scheduled Test 1972 00:00:00 Screening for malignant neoplasm of colon (procedure) [code = 522240403] [facility] Future Scheduled Test 1972 00:00:00 Screening for malignant neoplasm of colon (procedure) [code = 657105292] [facility] Future Scheduled Test 1972 00:00:00 Screening for malignant neoplasm of colon (procedure) [code = 073190130] [facility] Future Scheduled Test 1972 00:00:00 Screening for malignant neoplasm of colon (procedure) [code = 802423719] [facility] Future Scheduled Test 1972 00:00:00 Sigmoidoscopy [code = Sigmoidoscopy] [facility] Future Scheduled Test 1972 00:00:00 Screening for malignant neoplasm of breast (procedure) [code = 641022927] [facility] Future Scheduled Test 1972 00:00:00 CT Colonography (combo) [code = CT Colonography (combo)] [facility] Future Scheduled Test 1972 00:00:00 Screening for malignant neoplasm of colon (procedure) [code = 648176312] [facility] Future Scheduled Test 1972 00:00:00 Screening for malignant neoplasm of colon (procedure) [code = 462033677] [facility] Future Scheduled Test 1972 00:00:00 Screening for malignant neoplasm of colon (procedure) [code = 726852796] [facility] Future Scheduled Test 1972 00:00:00 Screening for malignant neoplasm of colon (procedure) [code = 452532036] [facility] Future Scheduled Test 1972 00:00:00 Sigmoidoscopy [code = Sigmoidoscopy] [facility] Future Scheduled Test 1972 00:00:00 Screening for malignant neoplasm of breast (procedure) [code = 007770931] [facility] Future Scheduled Test 1972 00:00:00 CT Colonography (combo) [code = CT Colonography (combo)] [facility] Future Scheduled Test 1972 00:00:00 Screening for malignant neoplasm of colon (procedure) [code = 728755101] [facility] Future Scheduled Test 1972 00:00:00 Screening for malignant neoplasm of colon (procedure) [code = 249926427] [facility] Future Scheduled Test 1972 00:00:00 Screening for malignant neoplasm of colon (procedure) [code = 422239556] [facility] Future Scheduled Test 1972 00:00:00 Screening for malignant neoplasm of colon (procedure) [code = 864718939] [facility] Future Scheduled Test 1972 00:00:00 Sigmoidoscopy [code = Sigmoidoscopy] [facility] Future Scheduled Test 1972 00:00:00 Screening for malignant neoplasm of breast (procedure) [code = 412709478] [facility] Future Scheduled Test 1972 00:00:00 CT Colonography (combo) [code = CT Colonography (combo)] [facility] Future Scheduled Test 1972 00:00:00 Screening for malignant neoplasm of colon (procedure) [code = 987972289] [facility] Future Scheduled Test 1972 00:00:00 Screening for malignant neoplasm of colon (procedure) [code = 026320124] [facility] Future Scheduled Test 1972 00:00:00 Screening for malignant neoplasm of colon (procedure) [code = 094791868] [facility] Future Scheduled Test 1972 00:00:00 Screening for malignant neoplasm of colon (procedure) [code = 730370848] [facility] Future Scheduled Test 1972 00:00:00 Sigmoidoscopy [code = Sigmoidoscopy] [facility] Future Scheduled Test 1972 00:00:00 Screening for malignant neoplasm of breast (procedure) [code = 002085260] [facility] Future Scheduled Test 1972 00:00:00 CT Colonography (combo) [code = CT Colonography (combo)] [facility] Future Scheduled Test 1972 00:00:00 Screening for malignant neoplasm of colon (procedure) [code = 337755307] [facility] Future Scheduled Test 1972 00:00:00 Screening for malignant neoplasm of colon (procedure) [code = 704902774] [facility] Future Scheduled Test 1972 00:00:00 Screening for malignant neoplasm of colon (procedure) [code = 829833147] [facility] Future Scheduled Test 1972 00:00:00 Screening for malignant neoplasm of colon (procedure) [code = 001886518] [facility] Future Scheduled Test 1972 00:00:00 Sigmoidoscopy [code = Sigmoidoscopy] [facility] Future Scheduled Test 1972 00:00:00 Screening for malignant neoplasm of breast (procedure) [code = 083069724] [facility] Future Scheduled Test 1972 00:00:00 CT Colonography (combo) [code = CT Colonography (combo)] [facility] Future Scheduled Test 1972 00:00:00 Screening for malignant neoplasm of colon (procedure) [code = 763034011] [facility] Future Scheduled Test 1972 00:00:00 Screening for malignant neoplasm of colon (procedure) [code = 060826493] [facility] Future Scheduled Test 1972 00:00:00 Screening for malignant neoplasm of colon (procedure) [code = 945045959] [facility] Future Scheduled Test 1972 00:00:00 Screening for malignant neoplasm of colon (procedure) [code = 714091464] [facility] Future Scheduled Test 1972 00:00:00 Sigmoidoscopy [code = Sigmoidoscopy] [facility] Future Scheduled Test 1972 00:00:00 Screening for malignant neoplasm of breast (procedure) [code = 172131983] [facility] Future Scheduled Test 1972 00:00:00 CT Colonography (combo) [code = CT Colonography (combo)] [facility] Future Scheduled Test 1972 00:00:00 Screening for malignant neoplasm of colon (procedure) [code = 373415222] [facility] Future Scheduled Test 1972 00:00:00 Screening for malignant neoplasm of colon (procedure) [code = 738214676] [facility] Future Scheduled Test 1972 00:00:00 Screening for malignant neoplasm of colon (procedure) [code = 606886982] [facility] Future Scheduled Test 1972 00:00:00 Screening for malignant neoplasm of colon (procedure) [code = 966441105] [facility] Future Scheduled Test 1972 00:00:00 Sigmoidoscopy [code = Sigmoidoscopy] [facility] Future Scheduled Test 1972 00:00:00 Screening for malignant neoplasm of breast (procedure) [code = 289133292] [facility] Future Scheduled Test 1972 00:00:00 CT Colonography (combo) [code = CT Colonography (combo)] [facility] Future Scheduled Test 1972 00:00:00 Screening for malignant neoplasm of colon (procedure) [code = 670474325] [facility] Future Scheduled Test 1972 00:00:00 Screening for malignant neoplasm of colon (procedure) [code = 216436236] [facility] Future Scheduled Test 1972 00:00:00 Screening for malignant neoplasm of colon (procedure) [code = 263920021] [facility] Future Scheduled Test 1972 00:00:00 Screening for malignant neoplasm of colon (procedure) [code = 730689344] [facility] Future Scheduled Test 1972 00:00:00 Sigmoidoscopy [code = Sigmoidoscopy] [facility] Future Scheduled Test 1972 00:00:00 Screening for malignant neoplasm of breast (procedure) [code = 357975705] [facility] Future Scheduled Test 1972 00:00:00 CT Colonography (combo) [code = CT Colonography (combo)] [facility] Future Scheduled Test 1972 00:00:00 Screening for malignant neoplasm of colon (procedure) [code = 909045680] [facility] Future Scheduled Test 1972 00:00:00 Screening for malignant neoplasm of colon (procedure) [code = 420282440] [facility] Future Scheduled Test 1972 00:00:00 Screening for malignant neoplasm of colon (procedure) [code = 014972627] [facility] Future Scheduled Test 1972 00:00:00 Screening for malignant neoplasm of colon (procedure) [code = 470406025] [facility] Future Scheduled Test 1972 00:00:00 Sigmoidoscopy [code = Sigmoidoscopy] [facility] Goal Plan of Care Not e [code = 49093-3] Goal Plan of Care Not e [code = 08023-5] Goal Plan of Care Not e [code = 67738-5] Goal Plan of Care Not e [code = 28865-8] Goal Plan of Care Not e [code = 19911-2] Goal Plan of Care Not e [code = 66912-9] Goal Plan of Care Not e [code = 55580-7] Goal Plan of Care Not e [code = 38949-3] Goal Plan of Care Not e [code = 17260-1] Goal Plan of Care Not e [code = 50644-7] Goal Plan of Care Not e [code = 84671-3] Goal Plan of Care Not e [code = 71213-3] Goal Plan of Care Not e [code = 36291-0] Goal Plan of Care Not e [code = 76672-5] Goal Plan of Care Not e [code = 07425-7] Goal Plan of Care Not e [code = 76377-0] Goal Plan of Care Not e [code = 05775-9] Goal Plan of Care Not e [code = 40660-2] Goal Plan of Care Not e [code = 69617-1] Goal Plan of Care Not e [code = 84829-2] Goal Plan of Care Not e [code = 51139-9] Goal Plan of Care Not e [code = 17744-8] Goal Plan of Care Not e [code = 67742-8] Goal Plan of Care Not e [code = 79854-1] Goal Plan of Care Not e [code = 97856-7] Goal Plan of Care Not e [code = 19369-1] Goal Plan of Care Not e [code = 70430-1] Goal Plan of Care Not e [code = 56172-4] Goal Plan of Care Not e [code = 53558-3] Goal Plan of Care Not e [code = 69528-0] Goal Plan of Care Not e [code = 41435-6] Goal Plan of Care Not e [code = 38549-4] Goal Plan of Care Not e [code = 11167-0] Goal Plan of Care Not e [code = 98481-3] Goal Plan of Care Not e [code = 13268-4] Encounters Start Date/Time End Date/Time Encounter Type Admission Type Attending [facility] Care Department Encounter ID Source 2023-09-07 10:11:03 Inpatient PANKAJ PARRISH [facility] [id number] [facility] 2023-09-05 10:08:27 Inpatient PANKAJ PARRISH [facility] [id number] [facility] 2023-09-05 10:05:12 Inpatient PANKAJ PARRISH [facility] [id number] [facility] 2023-09-04 04:51:30 Inpatient PANKAJ PARRISH [facility] [id number] [facility] 2023-09-04 04:14:55 Inpatient PANKAJ PARRISH [facility] [id number] [facility] 2023-09-04 03:08:45 Inpatient PANKAJ PARRISH [facility] [id number] [facility] 2023-09-04 02:36:28 Inpatient PANKAJ PARRISH [facility] [id number] [facility] 2023-06-16 09:32:36 Inpatient AYDEE DICKENS [facility] [id number] [facility] 2023-06-16 09:32:09 Inpatient AYDEE DICKENS [facility] [id number] [facility] 2023-06-16 09:31:53 Inpatient EL AYDEE GO [facility] [id number] [facility] 2023-06-14 07:46:02 Inpatient AYDEE DICKENS [facility] [id number] [facility] 2023-06-14 07:39:22 Inpatient AYDEE DICKENS [facility] [id number] [facility] 2023-06-14 06:38:38 Inpatient AYDEE DICKENS [facility] [id number] [facility] 2023-06-13 13:44:18 Inpatient MARIANELA MURPHY [facility] [id number] [facility] 2023-06-13 11:45:24 Inpatient AYDEE DICKENS [facility] [id number] [facility] 2023-05-08 11:21:00 Outpatient EL ADAM GARCIA [facility] Surgery [id number] [facility] 2023-04-01 14:26:29 Inpatient ER THOMAS LOZOYA [facility] [id number] [facility] 2023-03-31 09:24:52 Inpatient ER MARIAH ALDRIDGE [facility] [id number] [facility] 2021-05-20 18:48:04 Emergency [facility] [id number] General acute hospital 2021-05-20 12:43:40 Emergency [facility] [id number] General acute hospital 2024-04-14 11:30:00 2024-04-14 11:30:00 Outpatient GUSTAVO DELANEY [id number] Cynthia Garcia 2024-04-02 20:43:00 2024-04-03 00:56:00 Emergency CHRISSY BISHOP [facility] [id number] General acute hospital 2024-04-02 20:43:00 2024-04-03 00:56:00 Emergency Chrissy Mohr [facility] 1.2840.114 350.1.13.10 4.2.7.2.686 [id number] General acute hospital 2024-03-08 00:00:00 2024-03-08 00:00:00 Outpatient MD CYNTHIA MARLEY [id number] [facility] 2024-01-14 00:00:00 2024-02-20 18:26:15 Patient Secure [facility] Unassigned, [place] [facility] 1.840.114 350.1.13.10 4.2.7.2.686 [id number] General acute hospital 2024-02-19 00:00:00 2024-02-19 00:00:00 Outpatient GUSTAVO DELANEY [id number] [facility] 2024-02-16 10:15:00 2024-02-16 10:15:00 Outpatient QUINN MORALESMARLEN MTZ [id number] [facility] 2024-01-13 00:00:00 2024-02-13 18:19:27 Patient Secure [facility] Unassigned, [place] [facility] 1.2.840.114 350.1.13.10 4.2.7.2.686 [id number] General acute hospital 2024-01-12 22:04:00 2024-01-13 00:00:00 Emergency X RADHA WYATT BRENT [facility] E[facility] [id number] General acute hospital 2024-01-12 22:04:00 2024-01-13 00:00:00 Emergency Radha Wyatt [facility] 1.2.840.114 350.1.13.10 4.2.7.2.686 [id number] General acute hospital 2024-01-12 00:00:00 2024-01-12 16:22:23 Transition of Care Veronique Carrillo 1.2.840.114 350.1.13.10 4.2.7.2.686 [id number] General acute hospital 2024-01-09 16:11:00 2024-01-10 15:56:00 Outpatient X DARRICK ALTAMIRANO [facility] [id number] General acute hospital 2024-01-09 16:11:00 2024-01-10 15:56:00 Hospital Encounter Olena Del Castillo K Paige Khan, Mohammad A. [facility] 1.2.840.114 350.1.13.10 4.2.7.2.686 [id number] General acute hospital 2023-12-17 00:00:00 2023-12-17 00:00:00 Transition of Care Jodi Berg 1.2.840.114 350.1.13.10 4.2.7.2.686 [id number] General acute hospital 2023-12-14 13:34:00 2023-12-15 11:08:00 Outpatient X TAL BENAVIDEZ [facility] [id number] General acute hospital 2023-12-14 13:34:00 2023-12-15 11:08:00 [facility] 1.2.840.114 350.1.13.10 4.2.7.2.686 [id number] General acute hospital 2023-12-07 00:00:00 2023-12-07 00:00:00 Outpatient GUSTAVO DELANEY [id number] Cynthia Garcia 2023-12-02 13:05:00 2023-12-03 19:00:00 Outpatient X MOJGAN [facility] [id number] General acute hospital 2023-12-02 13:05:00 2023-12-03 19:00:00 Hospital Encounter Connor Renee Wissam Ibrahim [facility] 1.2.840.114 350.1.13.10 4.2.7.2.686 [id number] General acute hospital 2023-12-01 00:00:00 2023-12-01 10:40:26 Transition of Care Madeline Mckinley 1.2.840.114 350.1.13.10 4.2.7.2.686 [id number] General acute hospital 2023-11-30 00:00:00 2023-11-30 10:41:56 Transition of Care Madeline Mckinley 1.2.840.114 350.1.13.10 4.2.7.2.686 [id number] General acute hospital 2023-11-21 21:12:00 2023-11-28 16:01:00 Inpatient X MADELINE PIERRE [facility] [id number] General acute hospital 2023-11-21 21:12:00 2023-11-28 16:01:00 Hospital Encounter Madeline Pierre Donnell Khan, Rizwan Al Hemyari, Ryder Davis [facility] 1.2.840.114 350.1.13.10 4.2.7.2.686 [id number] General acute hospital 2023-11-26 14:15:00 2023-11-26 14:15:00 Outpatient AARON LEDESMA [id number] Cynthia Garcia 2023-11-23 13:45:00 2023-11-23 14:45:00 Surgery Cris Molina [facility] 1.2.840.114 350.1.13.10 4.2.7.2.686 [id number] General acute hospital 2023-11-18 00:00:00 2023-11-18 00:00:00 Outpatient EFRA BABCOCK CYNTHIA MTZ [id number] Cynthia Macdonaldoliver 2023-11-15 00:00:00 2023-11-15 00:00:00 Outpatient CYNTHIA MTZ [id number] [facility]-15 00:00:00 2023-11-15 00:00:00 Outpatient CYNTHIA MTZ [id number] [facility] 2023-11-15 00:00:00 2023-11-15 00:00:00 Outpatient CYNTHIA MTZ [id number] Cynthia [facility] 2023-11-12 15:15:00 2023-11-12 15:15:00 Outpatient ELAINA GUSTAVO CYNTHIA MTZ [id number] Cynthia [facility] 2023-11-12 00:00:00 2023-11-12 00:00:00 Outpatient CYNTHIA MTZ [id number] Cynthia [facility] 2023-11-10 09:30:00 2023-11-10 09:30:00 Outpatient JESUS ALBERTO LIEBERMANUEL CYNTHIA MTZ [id number] [facility] 2023-11-09 00:00:00 2023-11-09 00:00:00 Outpatient ELAINA GUSTAVO CYNTHIA MTZ [id number] Cynthia [facility] 2023-11-09 00:00:00 2023-11-09 00:00:00 Outpatient JESUS ALBERTO LIEBERMANUEL CYNTHIA MTZ [id number] [facility] 2023-11-07 17:51:00 2023-11-07 22:04:00 emergency [facility] [id number] 2023-11-07 17:51:00 2023-11-07 22:04:00 Emergency ER JUANY GREEN [facility] [id number] [facility] 2023-11-05 00:00:00 2023-11-05 00:00:00 Outpatient TIFFANY PUENTE [id number] Cynthia Seybold 2023-11-03 00:00:00 2023-11-03 00:00:00 Outpatient CYNTHIA MTZ [id number] Cynthia Seybold 2023-10-29 00:00:00 2023-10-29 00:00:00 Outpatient GUSTAVO DELANEY [id number] Cynthia Seybold 2023-10-26 00:00:00 2023-10-26 00:00:00 Outpatient EFRA BABCOCK [id number] Cynthia Seybold 2023-10-22 00:00:00 2023-10-22 00:00:00 Outpatient GUSTAVO DELANEY [id number] Cynthia Seybold 2023-10-16 11:10:00 2023-10-16 11:10:00 Outpatient SIDDHARTH STANFORD [id number] Cynthia Seybold 2023-10-15 00:00:00 2023-10-15 00:00:00 Outpatient MINDYMARGOT CYNTHIA MTZ [id number] Cynthia Seybold 2023-10-15 00:00:00 2023-10-15 00:00:00 Outpatient MARGOT GUILLEN CYNTHIA MTZ [id number] Cynthia Seybold 2023-10-15 00:00:00 2023-10-15 00:00:00 Outpatient MD CYNTHIA MARLEY [id number] Cynthia Seybold 2023-10-06 10:45:00 2023-10-06 10:45:00 Outpatient SARAI JULES [id number] Cynthia Seybold 2023-10-05 11:30:00 2023-10-05 11:30:00 Outpatient GUSTAVO DELANEY [id number] Cynthia Seybold 2023-10-01 00:00:00 2023-10-01 00:00:00 Outpatient GUSTAVO DELANEY [id number] Cynthia Seybold 2023-09-30 14:15:00 2023-09-30 14:15:00 Outpatient PREZAGUSTAVO Alexander CYNTHIA [id number] Cynthia Seybold 2023-09-24 00:00:00 2023-09-24 00:00:00 Outpatient PREZAGUSTAVO Alexander CYNTHIA [id number] Cynthia Seybold 2023-09-23 00:00:00 2023-09-23 00:00:00 Outpatient TIFFANY PUENTE [id number] [facility] 2023-09-22 00:00:00 2023-09-22 00:00:00 Outpatient PREZAGUSTAVO Alexander CYNTHIA [id number] Cynthia Seybold 2023-09-22 00:00:00 2023-09-22 00:00:00 Outpatient MARGOT GUILLEN CYNTHIA [id number] [facility] 2023-09-16 00:00:00 2023-09-16 00:00:00 Outpatient PREZAGUSTAVO Alexander CYNTHIA [id number] [facility] 2023-09-16 00:00:00 2023-09-16 00:00:00 Outpatient PREZASGUSTAVO CYNTHIA [id number] [facility] 2023-09-16 00:00:00 2023-09-16 00:00:00 Outpatient PREZASGUSTAVO CYNTHIA [id number] Cynthia Seybold 2023-09-14 00:00:00 2023-09-14 00:00:00 Outpatient MARGOT GUILLEN CYNTHIA MTZ [id number] Cynthia Seybold 2023-09-14 00:00:00 2023-09-14 00:00:00 Outpatient MARGOT GUILLEN CYNTHIA MTZ [id number] Cynthia Seybold 2023-09-11 11:00:00 2023-09-11 11:00:00 Outpatient BJYONATAN AGUIRRE CYNTHIA MTZ [id number] Cynthia Seybold 2023-09-09 00:00:00 2023-09-09 00:00:00 Outpatient CYNTHIA MTZ [id number] Cynthia Seybold 2023-09-04 00:14:00 2023-09-08 10:51:00 Inpatient ER EDWARD FERRER Neurosurger y [id number] [facility] 2023-09-04 00:14:00 2023-09-08 10:51:00 Hospital Encounter London Loyola, Pankajсергей Dickensan, Edward Sosa [facility] [id number] [facility] 2023-09-04 00:14:00 2023-09-08 10:51:00 Hospital Encounter ER London Loyola Pankaj DickensEdward larson Maria [facility] [id number] [facility] 2023-09-07 18:41:43 2023-09-07 18:41:43 Outpatient EDWARD MANE [facility] [id number] [facility] 2023-09-03 20:52:00 2023-09-03 23:44:00 emergency [facility] [id number] 2023-09-03 20:52:00 2023-09-03 23:44:00 Emergency ER JUANY GREEN [facility] [id number] [facility] 2023-09-02 00:00:00 2023-09-02 00:00:00 Outpatient PROVIDERTIFFANY [id number] Cynthia [facility] 2023-09-01 15:30:00 2023-09-01 15:30:00 Outpatient DEMETRIUS TOBAR [id number] [facility] 2023-08-19 00:00:00 2023-08-19 00:00:00 Outpatient NICLOETTE CHIKIQUIN [facility] [id number] [facility] 2023-08-13 00:00:00 2023-08-13 00:00:00 Orders Only Quin Scruggs [facility] [id number] [facility] 2023-08-13 00:00:00 2023-08-13 00:00:00 Orders Only Quin Scruggs [facility] [id number] [facility] 2023-08-12 13:49:00 2023-08-12 16:12:00 Emergency X MJ BRYAN [facility] ERT [id number] General acute hospital 2023-08-12 13:49:00 2023-08-12 16:12:00 Emergency Mj Bryan [facility] 1.2.840.114 350.1.13.10 4.2.7.2.686 [id number] General acute hospital 2023-06-13 03:43:00 2023-06-16 19:45:00 Inpatient ER AYDEE GO [facility] Internal Med [id number] [facility] 2023-06-13 03:43:00 2023-06-16 19:45:00 Hospital Encounter Marianela Burgess Sahar [facility] [id number] [facility] 2023-06-13 03:43:00 2023-06-16 19:45:00 Hospital Encounter ER Marianela Burgess Sahar [facility] [id number] [facility] 2023-06-15 00:00:00 2023-06-15 00:00:00 Orders Only Provider, Not In System [facility] [id number] [facility] 2023-06-15 00:00:00 2023-06-15 00:00:00 Orders Only Provider, Not In System [facility] [id number] [facility] 2023-06-13 16:30:06 2023-06-13 16:30:06 Outpatient EL AYDEE GO [facility] [id number] [facility] 2023-06-13 00:00:00 2023-06-13 00:00:[address] [facility] [id number] [facility] 2023-06-13 00:00:00 2023-06-13 00:00:00 Travel [facility] [id number] [facility] 2023-06-13 00:00:00 2023-06-13 00:00:[address] [facility] [id number] [facility] 2023-06-13 00:00:00 2023-06-13 00:00:00 Travel [facility] [id number] [facility] 2023-06-12 00:00:00 2023-06-12 00:00:[address] [facility] [id number] [facility] 2023-06-12 00:00:00 2023-06-12 00:00:[address] [facility] [id number] [facility] 2023-05-28 06:45:00 2023-06-04 17:36:00 Inpatient ADAM BRANTLEY [facility] Surgery [id number] [facility] 2023-05-28 06:45:00 2023-06-04 17:36:00 Hospital Encounter Adam Garcia [facility] [id number] [facility] 2023-05-28 06:45:00 2023-06-04 17:36:00 Hospital Encounter Doni Brantleyin [facility] [id number] [facility] 2023-06-01 09:10:00 2023-06-01 13:00:00 Anesthesia Event IsmaelHarry chaudhry Mujtaba [facility] [id number] [facility] 2023-06-01 09:10:00 2023-06-01 13:00:00 Anesthesia Event IsmaelHarry chaudhry Mujtaba [facility] [id number] [facility] 2023-06-01 09:00:00 2023-06-01 11:30:[address] [facility] [id number] [facility] 2023-06-01 09:00:00 2023-06-01 11:30:[address] [facility] [id number] [facility] 2023-06-01 09:47:57 2023-06-01 09:47:57 [facility] [id number] 2023-06-01 09:40:34 2023-06-01 09:40:34 Outpatient ADAM BRANTLEY [facility] [id number] [facility] 2023-05-31 09:25:55 2023-05-31 23:59:00 Inpatient ADAM BRANTLEY [facility] [id number] [facility] 2023-05-31 09:00:00 2023-05-31 23:59:00 Hospital Encounter Adam Garcia [facility] [id number] [facility] 2023-05-31 09:00:00 2023-05-31 23:59:00 Hospital Encounter Adam Garcia [facility] [id number] [facility] 2023-05-28 18:15:29 2023-05-28 18:15:29 Outpatient ADAM BRANTLEY [facility] [id number] [facility] 2023-05-28 08:30:00 2023-05-28 11:54:00 Anesthesia Event Ramya, Yue [facility] [id number] [facility] 2023-05-28 08:30:00 2023-05-28 11:54:00 Anesthesia Event Ramya, Yue [facility] [id number] [facility] 2023-05-28 11:41:14 2023-05-28 11:41:14 Outpatient ADAM BRANTLEY [facility] [id number] [facility] 2023-05-28 08:30:00 2023-05-28 11:00:[address] [facility] [id number] [facility] 2023-05-28 08:30:00 2023-05-28 11:00:[address] [facility] [id number] [facility] 2023-05-28 10:00:47 2023-05-28 10:00:47 Outpatient ADAM BRANTLEY [facility] [id number] [facility] 2023-05-28 00:00:00 2023-05-28 00:00:00 Travel [facility] [id number] [facility] 2023-05-28 00:00:00 2023-05-28 00:00:00 Travel [facility] [id number] [facility] 2023-05-26 09:00:00 2023-05-26 09:00:00 Hospital Encounter Adam Garcia [facility] [id number] [facility] 2023-05-26 00:00:00 2023-05-26 00:00:00 Outpatient EL ADAM GARCIA [facility] SLE [id number] [facility] 2023-05-26 00:00:00 2023-05-26 00:00:00 Outpatient NICOLETTE [facility] [id number] [facility] 2023-05-26 00:00:00 2023-05-26 00:00:00 Travel [facility] [id number] [facility] 2023-05-26 00:00:00 2023-05-26 00:00:00 Travel [facility] [id number] [facility] 2023-05-13 11:43:03 2023-05-13 11:43:03 Outpatient SFA [facility] 1025 Adria Martínez 2023-05-12 00:00:00 2023-05-12 00:00:00 Orders Only Adam Garcia [facility] [id number] [facility] 2023-05-12 00:00:00 2023-05-12 00:00:00 Orders Only Adam Garcia [facility] [id number] [facility] 2023-05-08 14:11:21 2023-05-08 14:11:21 Outpatient SFA S[facility] Tanesha0 Adria Martínez 2023-03-29 19:25:00 2023-04-02 20:48:00 Inpatient ER THOMAS LOZOYA [facility] Neurology [id number] [facility] 2023-03-29 19:25:00 2023-04-02 20:48:00 Hospital Encounter ER Connie Davey Shireen Kulkarni, Mrinalini Z [facility] [id number] [facility] 2023-03-31 08:32:56 2023-03-31 00:00:00 Inpatient ER MARIAH ALDRIDGE [facility] [id number] [facility] 2023-03-30 10:24:12 2023-03-30 23:59:00 Outpatient ER CONNIE DAVEY [facility] [id number] [facility] 2023-03-30 09:40:00 2023-03-30 23:59:00 Hospital Encounter Connie Davey [facility] [id number] [facility] 2023-03-30 13:46:20 2023-03-30 13:46:20 Outpatient ER MARIAH ALDRIDGE [facility] [id number] [facility] 2023-03-30 13:46:14 2023-03-30 13:46:14 Outpatient ER MARIAH ALDRIDGE [facility] [id number] [facility] 2023-03-30 10:24:04 2023-03-30 10:24:04 Outpatient ER CONNIE DAVEY [facility] [id number] [facility] 2023-03-30 00:00:00 2023-03-30 00:00:[address] [facility] [id number] [facility] 2023-03-30 00:00:00 2023-03-30 00:00:00 Travel [facility] [id number] [facility] 2022-12-11 08:56:00 2022-12-11 15:29:00 Emergency X Alfonso ALVARADO [facility] ERT [id number] General acute hospital 2022-12-11 08:56:00 2022-12-11 15:29:00 Emergency Alfonso Alvarado [facility] 1.2.840.114 350.1.13.10 4.2.7.2.686 [id number] General acute hospital 2022-11-17 17:25:00 2022-11-18 01:19:00 Emergency X RITCHIE WARREN [facility] ERT [id number] General acute hospital 2022-11-17 17:25:00 2022-11-18 01:19:00 Emergency Ritchie Warren [facility] 1.2.840.114 350.1.13.10 4.2.7.2.686 [id number] General acute hospital 2022-08-28 00:00:00 2022-08-28 00:00:00 Patient Outreach Margot Beckman 1.2.840.114 350.1.13.10 4.2.7.2.686 [id number] General acute hospital 2022-08-20 00:00:00 2022-08-20 00:00:00 Patient Outreach Margot Beckman 1.2.840.114 350.1.13.10 4.2.7.2.686 [id number] General acute hospital 2022-08-02 17:30:00 2022-08-03 14:29:00 Outpatient ER PARRISH DIANE [facility] Neurology [id number] [facility] 2022-08-02 17:30:00 2022-08-03 14:29:00 Hospital Encounter ER Halima Mendoza Kinjal M Ibe, Chimkama Ngozi Cynthia [facility] [id number] [facility] 2022-08-03 00:00:00 2022-08-03 00:00:[address] [facility] [id number] [facility] 2022-08-02 00:00:00 2022-08-02 00:00:00 Travel [facility] [id number] [facility] 2022-07-31 11:42:00 2022-08-01 21:48:00 Inpatient Valeria HILLBENJAMÍNDAMI [facility] SHEA [id number] General acute hospital 2022-07-31 11:42:00 2022-08-01 21:48:00 Hospital Encounter Alcon Dami Patel [facility] 1.2.840.114 350.1.13.10 4.2.7.2.686 [id number] General acute hospital 2022-08-01 00:00:00 2022-08-01 00:00:00 Transition of Care Maria Teresa Nicole 1.2.840.114 350.1.13.10 4.2.7.2.686 [id number] General acute hospital 2022-07-28 14:41:38 2022-07-28 14:41:38 Outpatient [facility] 9 Adria Martínez 2022-07-28 00:00:00 2022-07-28 00:00:00 Outpatient Visit [id number] 2022-07-24 13:24:40 2022-07-24 13:24:40 Outpatient [facility] [id number] Adria Martínez 2022-05-23 14:51:01 2022-05-23 14:51:01 Outpatient [facility] 1104 Adria Martínez 2022-05-23 00:00:00 2022-05-23 00:00:00 Outpatient Visit [id number] 2022-05-04 20:22:00 2022-05-08 14:44:00 Outpatient X CHANTEL BOJORQUEZ [facility] [id number] General acute hospital 2022-05-04 20:22:00 2022-05-08 14:44:00 Emergency Brandyn Ibrahim, [facility] 1.2840.114 350.1.13.10 4.2.7.2.686 [id number] General acute hospital 2022-04-13 13:06:00 2022-04-15 15:00:00 Inpatient X CONRAD [facility] [id number] General acute hospital 2022-04-13 13:06:00 2022-04-15 15:00:00 Hospital Encounter Sapna Vargas Muhammad Zeeshan [facility] 1.2840.114 350.1.13.10 4.2.7.2.686 [id number] General acute hospital 2022-02-19 10:20:00 2022-02-19 10:30:00 Imm/Inj Visit Santos [place] Jose Santiago [facility] 1.840.114 350.1.13.10 4.2.7.2.686 [id number] General acute hospital 2022-02-19 10:20:00 2022-02-19 10:20:00 Outpatient R JOSE PAK [facility] [id number] General acute hospital 2021-11-23 15:07:00 2021-11-23 17:03:00 Emergency X WILLIAMS VIRK [facility] ERT [id number] General acute hospital 2021-11-23 15:07:00 2021-11-23 17:03:00 Emergency Megan Rondon Folusho F [facility] 1.840.114 350.1.13.10 4.2.7.2.686 [id number] General acute hospital 2021-11-21 09:40:00 2021-11-21 09:40:00 Outpatient R [facility] [id number] General acute hospital 2021-05-24 09:30:00 2021-05-24 09:30:00 Outpatient R JOSE PAK [facility] [id number] General acute hospital 2021-05-24 08:47:51 2021-05-24 08:57:51 Imm/Inj Visit Vaccine, [place] Collette Otoniel [facility] 1.2840.114 350.1.13.10 4.2.7.2.686 [id number] General acute hospital 2021-05-03 09:40:00 2021-05-03 09:59:35 Outpatient R JOSE PAK [facility] [id number] General acute hospital 2021-05-03 09:17:43 2021-05-03 09:59:35 Imm/Inj Visit Vaccine, [facility] 1.2840.114 350.1.13.10 4.2.7.2.686 [id number] General acute hospital 2021-04-16 00:00:00 2021-04-16 00:00:00 Orders Only Doctor Unassigned, Olyphant [facility] 1.2.840.114 350.1.13.10 4.2.7.2.686 [id number] General acute hospital 2021-03-17 00:00:00 2021-03-17 00:00:00 Telephone Miky Nava [facility] 1.2840.114 350.1.13.10 4.2.7.2.686 [id number] General acute hospital 2021-03-16 20:08:00 2021-03-16 23:24:00 Emergency Fabrice Chakraborty [facility] 1.2.840.114 350.1.13.10 4.2.7.2.686 [id number] General acute hospital 2021-03-14 18:59:34 2021-03-14 20:19:13 Urgent Care Lydia Desouza Unknown, Attending [facility] 1.2.840.114 350.1.13.10 4.2.7.2.686 [id number] General acute hospital 2021-03-14 19:00:00 2021-03-14 19:00:00 Outpatient R UNKNOWN, ATTENDING [facility] [id number] General acute hospital 2021-02-19 10:49:00 2021-02-19 14:48:00 Emergency Estefania Monroy S [facility] 1.2.840.114 350.1.13.10 4.2.7.2.686 [id number] General acute hospital 2019-03-09 00:00:00 2019-03-09 00:00:00 Yehuda Zimmerman [facility] 1.2.840.114 350.1.13.10 4.2.7.2.686 [id number] General acute hospital 2019-03-09 00:00:00 2019-03-09 00:00:00 Yehuda Zimmerman [facility] 1.2.840.114 350.1.13.10 4.2.7.2.686 [id number] Results Test Description Test Time Test Comments Results Result Co mments Source [facility] (NA, K, CL, CO2, GLUCOSE, BUN, CREATININE, CA)2024-04-03 02:26:01* Test Item Value Reference Range Interpretation Comme nts NA (test code = 7407983454) 136 mmol/L 135-145 K (test code = 4175747943) 3.2 mmol/L 3.5-5.0 L CL (test code = 4372494621) 101 mmol/L 98-108 CO2 TOTAL (test code = 0491342814) 23 mmol/L 23-31 AGAP (test code = 2911681421) 12 2-16 BUN (test code = 9323999061) 4 mg/dL 7-23 L GLUCOSE (test code = 0156060983) 165 mg/dL 70-110 H CREATININE (test code = 2160-0) 0.67 mg/dL 0.50-1.04 CALCIUM (test code = 7627085580) 8.5 mg/dL 8.6-10.6 L eGFR (test code = 89850-1) 105.3 mL/min/1.73m2 CKD-EPI eGFR (2020). Assuming creatinine has been stable day-to-day for at least three months, the eGFR indicates Category G1 (>= 90 mL/min/1.73 m2) Lab Interpretation (test code = 24413-0) Abnormal [facility] with Lpax5133-44-86 02:19:04* Test Item Value Reference Range Interpretation [...] g/dL 31.6-35.1 L RDW-SD (test code = 79952-4) 53.9 fL 39.0-49.9 H RDW-CV (test code = 788-0) 18.2 % 12.0-15.5 H PLT (test code = 777-3) 458 166-358 H MPV (test code = 47473-7) 8.6 fL 9.5-12.9 L NRBC/100 WBC (test code = 0724305404) 0.0 0.0-10.0 NRBC x10^3 (test code = 9470409442) See_Comment [Automated messa ge] The system which generated this result transmitted reference range: 10*3/?L. The reference range was not used to interpret this result as normal/abnormal. GRAN MAT (NEUT) % (test code = 770-8) 62.8 % IMM GRAN % (test code = 4345554245) 0.40 % LYMPH % (test code = 736-9) 28.0 % MONO % (test code = 5905-5) 6.5 % EOS % (test code = 713-8) 1.3 % BASO % (test code = 706-2) 1.0 % GRAN MAT x10^3(ANC) (test code = 4194941834) 4.36 10*3/uL 1.88-7.09 IMM GRAN x10^3 (test code = 8469856476) 0.03 10*3/uL 0.00-0.06 LYMPH x10^3 (test code = 731-0) 1.94 10*3/uL 1.32-3.29 MONO x10^3 (test code = 742-7) 0.45 10*3/uL 0.33-0.92 EOS x10^3 (test code = 711-2) 0.09 10*3/uL 0.03-0.39 BASO x10^3 (test code = 704-7) 0.07 10*3/uL 0.01-0.07 Lab Interpretation (test code = 42508-9) Abnormal [facility] Whole Yltuc2977-19-86 02:05:20* Test Item Value Reference Range Interpretation Comme nts LACTIC ACID (test code = 9345803661) 2.61 mmol/L 0.50-2.20 H Lab Interpretation (test cod e = 92671-6) Abnormal [facility] [id number] 04:25:23* Test Item Value Reference Range Interpretation Comme nts TROPONIN I (test code = 7124722793) 0.004 ng/mL <=0.034 LYNDSAY (test code = [...] of biotin. Lab Interpretation (test code = 95174-5) Normal [facility]. Metabolic Panel (91673)2024-01-13 04:13:41* Test Item Value Reference Range Interpretation Comme nts NA (test code = 7422136228) 140 mmol/L 135-145 K (test code = 2223604454) 3.7 mmol/L 3.5-5.0 CL (test code = 2358399705) 103 mmol/L 98-108 CO2 TOTAL (test code = 8126080185) 25 mmol/L 23-31 AGAP (test code = 0702458324) 12 2-16 BUN (test code = 9741092639) 12 mg/dL 7-23 GLUCOSE (test code = 5257699933) 143 mg/dL 70-110 H CREATININE (test code = 2160-0) 0.91 mg/dL 0.50-1.04 TOTAL BILI (test code = 0541417182) 0.4 mg/dL 0.1-1.1 CALCIUM (test code = 1275484909) 9.0 mg/dL 8.6-10.6 T PROTEIN (test code = 3967564752) 7.7 g/dL 6.3-8.2 ALBUMIN (test code = 9283082461) 4.2 g/dL 3.5-5.0 ALK PHOS (test code = 9629815420) 93 U/L 34-122 ALTv (test code = 1742-6) 9 U/L 5-35 AST(SGOT) (test code = 8113283694) 18 U/L 13-40 eGFR (test code = 93527-7) 76.5 mL/min/1.73m2 CKD-EPI eGFR (2020). Assuming creatinine has been stable day-to-day for at least three months, the eGFR indicates Category G2 (60 - 89 mL/min/1.73 m2) Lab Interpretation (test code = 84823-8) Abnormal [facility] with Rxbo7018-06-93 03:58:19* Test Item Value Reference Range Interpretation [...] g/dL 31.6-35.1 L RDW-SD (test code = 28262-0) 59.0 fL 39.0-49.9 H RDW-CV (test code = 788-0) 18.7 % 12.0-15.5 H PLT (test code = 777-3) 394 166-358 H MPV (test code = 66775-3) 8.5 fL 9.5-12.9 L NRBC/100 WBC (test code = 6805237552) 0.0 0.0-10.0 NRBC x10^3 (test code = 3942578582) See_Comment [Automated messa ge] The system which generated this result transmitted reference range: 10*3/?L. The reference range was not used to interpret this result as normal/abnormal. GRAN MAT (NEUT) % (test code = 770-8) 60.6 % IMM GRAN % (test code = 1857016737) 1.40 % LYMPH % (test code = 736-9) 26.9 % MONO % (test code = 5905-5) 8.7 % EOS % (test code = 713-8) 1.8 % BASO % (test code = 706-2) 0.6 % GRAN MAT x10^3(ANC) (test code = 2912766150) 5.14 10*3/uL 1.88-7.09 IMM GRAN x10^3 (test code = 8262586765) 0.12 10*3/uL 0.00-0.06 H LYMPH x10^3 (test code = 731-0) 2.28 10*3/uL 1.32-3.29 MONO x10^3 (test code = 742-7) 0.74 10*3/uL 0.33-0.92 EOS x10^3 (test code = 711-2) 0.15 10*3/uL 0.03-0.39 BASO x10^3 (test code = 704-7) 0.05 10*3/uL 0.01-0.07 Lab Interpretation (test code = 53059-4) [facility]40:03* Test Item Value Reference Range Interpretation Comme nts Height (test code = 2740772096) 62 in Weight (test code = 4426054866) 200 lbs Systolic BP (test code = 8966835479) 90 mmHg Diastolic BP (test code = 4373899555) 66 mmHg Heart Rate (test code = 7681602780) 69 bpm BSA (test code = 4812319502) 1.91 m2 LVOT diameter (test code = 8942597076) 2.13 cm LVOT area (test code = 2958369282) 3.60 cm2 LA size (test code = 9508902670) 3.5 cm LAV(MOD-sp4) (test code = 0270981672) 55.70 mL E wave decelartion time (test code = 1399108958) 0.12 s MV stenosis pressure 1/2 time (test code = 8383922966) 35.0 ms MV Peak A Evette (test code = 5149754675) 117.0 cm/s MV Peak E Evette (test code = 4084323668) 94.3 cm/s E/A ratio (test code = 0904469256) 0.81 ratio MV E/e' septal (test code = 1608740197) 10.2 cm/s LVOT stroke volume (test code = 0373870775) 59.50 cm3 LVOT peak evette (test code = 1932524865) 99.8 cm/s LVOT mn grad (test code = 3954096812) 1.9 mmHg AV LVOT peak gradient (test code = 1324103237) 4.0 mmHg LVOT peak VTI (test code = 2416569144) 16.7 cm LV V1 mean (test code = 5377502795) 64.40 cm/s Aortic valve mean velocity (test code = 3814488605) 155.3 cm/s Ao peak evette (test code = 5515672374) 222.6 cm/s Ao VTI (test code = 7003497138) 33.6 cm AV area by cont VTI (test code = 1612361768) 1.8 cm2 AV area peak evette (test code = 1679812308) 1.6 cm2 Ao max PG (test code = 7902846419) 19.80 mm[Hg] AV peak gradient (test code = 9668645698) 19.8 mmHg AV valve area (test code = 8008523486) 1.77 cm2 AV mean gradient (test code = 4764209007) 10.6 mmHg AV regurgitation pressure 1/2 time (test code = 5443951151) 651.6 ms AI dec slope (test code = 7141431119) 180.60 cm/s2 AI max evette (test code = 9668739992) 401.80 cm/s AI max PG (test code = 6203594990) 64.60 mm[Hg] LVIDD (test code = 9881911253) 4.90 cm Left Ventricular End Diastolic Volume by Teichholz Method (test code = 6026493) 114.6 mL IVS (test code = 5625483680) 1.17 cm Interventricular Septum Diastolic Thickness by 2D (test code = 5596113) 1.17 cm LVPWD (test code = 2313648787) 1.17 cm PW (test code = 9393958416) 1.17 cm 0.6-1.1 EF(Teich) (test code = 6032510716) 20.70 % LVIDS (test code = 4779726995) 4.50 cm Left Ventricular End Systolic Volume by Teichholz Method (test code = 2770529) 90.9 mL FS (test code = 8063182854) 9 % EF - 2D (test code = 53658469) 20.70 % Radiology Study observation (narrative) (test code = 59707-3) LYNDSAY (test code = LYNDSAY) ?Left?Ventricle: Left [...] mL of Optison ultrasound enhancing agent used. [facility] Whole Cyhbf2438-10-26 02:02:28* Test Item Value Reference Range Interpretation Comme nts LACTIC ACID (test code = 0662978475) 1.36 mmol/L 0.50-2.20 Lab Interpretation (test cod e = 44627-2) Normal [facility] [id number] 01:16:45CTA CHEST WITH IV CONTRAST ORDERING PHYSICIAN: [...] adenoma. ACDF hardware in the lower cervical spine.[facility] 1 [id number] 23:07:58Exam: Chest (1 View), 01/09/2024 4:15 PM. Ordering Physician: OLENA DEL CASTILLO. History: Chest Pain. Technique: One view of the chest. Comparison: 12/14/2023. Findings: Cardiac silhouette is mildly enlarged. There is no pneumothorax. There isno consolidation or pleural effusion. Pleural and diaphragmatic contoursare normal. Calcified granuloma is seen in the left upper lobe. Changes ofanterior cervical discectomy and fusion are seen.[facility] HospitalTROPONIN [id number] 22:51:19* Test Item Value Reference Range Interpretation Comme [facility] TROPONIN I (test code = 5750372753) 0.006 ng/mL <=0.034 LYNDSAY (test code = [...] of biotin. Lab Interpretation (test code = 97255-2) Normal [facility] HospitalN-TERMINAL AAP-[id number] 22:48:38* Test Item Value Reference Range Interpretation Comme nts NT-proBNP (test code = 38271-4) 877 pg/mL <=125 LYNDSAY (test code = LYNDSAY) Result Indeterminate-Consid er causes of NT-proBNP elevation other than Heart failure such as acute coronary syndrome, pulmonary embolism, pulmonary hypertension, sepsis, stroke, and renal dysfunction. Lab Interpretation (test code = 88289-5) Abnormal [facility] HospitalCOMP. METABOLIC PANEL (20626)2024-01-09 22:42:20* Test Item Value Reference Range Interpretation Comme nts NA (test code = 4299412044) 137 mmol/L 135-145 K (test code = 5172406250) 3.8 mmol/L 3.5-5.0 CL (test code = 7571694939) 104 mmol/L 98-108 CO2 TOTAL (test code = 1842639818) 25 mmol/L 23-31 AGAP (test code = 8281927723) 8 2-16 BUN (test code = 8673675972) 7 mg/dL 7-23 GLUCOSE (test code = 3198363946) 96 mg/dL 70-110 CREATININE (test code = 2160-0) 0.60 mg/dL 0.50-1.04 TOTAL BILI (test code = 7122428853) 0.4 mg/dL 0.1-1.1 CALCIUM (test code = 1400810088) 8.7 mg/dL 8.6-10.6 T PROTEIN (test code = 7535958263) 7.0 g/dL 6.3-8.2 ALBUMIN (test code = 0211617081) 3.9 g/dL 3.5-5.0 ALK PHOS (test code = 8228650216) 101 U/L 34-122 ALTv (test code = 1742-6) 7 U/L 5-35 AST(SGOT) (test code = 4591334382) 20 U/L 13-40 eGFR (test code = 66715-4) 108.8 mL/min/1.73m2 CKD-EPI eGFR (20 21). Assuming creatinine has been stable day-to-day for at least three months, the eGFR indicates Category G1 (>= 90 mL/min/1.73 m2) [facility] HospitalD-ISRZJ9392-73-56 22:28:57* Test Item Value Reference Range Interpretation Comments D-DIMER (test code = 1970419635) 0.87 See_Comment H [Automated message] The system [...] a diagnosis. Lab Interpretation (test code = 46087-7) Abnormal [facility] WITH [id number] 22:09:01* Test Item Value Reference Range Interpretation [...] g/dL 31.6-35.1 L RDW-SD (test code = 15539-1) 58.1 fL 39.0-49.9 H RDW-CV (test code = 788-0) 18.6 % 12.0-15.5 H PLT (test code = 777-3) 312 166-358 MPV (test code = 44537-7) 8.3 fL 9.5-12.9 L NRBC/100 WBC (test code = 7231429440) 0.0 0.0-10.0 NRBC x10^3 (test code = 7167852281) See_Comment [Automated messa ge] The system which generated this result transmitted reference range: 10*3/?L. The reference range was not used to interpret this result as normal/abnormal. GRAN MAT (NEUT) % (test code = 770-8) 60.1 % IMM GRAN % (test code = 4024319046) 0.70 % LYMPH % (test code = 736-9) 27.3 % MONO % (test code = 5905-5) 10.1 % EOS % (test code = 713-8) 1.2 % BASO % (test code = 706-2) 0.6 % GRAN MAT x10^3(ANC) (test code = 4926954762) 5.12 10*3/uL 1.88-7.09 IMM GRAN x10^3 (test code = 7943847027) 0.06 10*3/uL 0.00-0.06 LYMPH x10^3 (test code = 731-0) 2.33 10*3/uL 1.32-3.29 MONO x10^3 (test code = 742-7) 0.86 10*3/uL 0.33-0.92 EOS x10^3 (test code = 711-2) 0.10 10*3/uL 0.03-0.39 BASO x10^3 (test code = 704-7) 0.05 10*3/uL 0.01-0.07 Lab Interpretation (test code = 19373-3) Abnormal [facility] HospitalPOCT GLUCOSE (AUTOMATED)2023-12-15 12:45:21* Test Item Value Reference Range Interpretation Comme nts POCT GLU (test code = 4334926384) 144 mg/dL 70-110 H Lab Interpretation (test cod e = 53691-0) Abnormal [facility] HospitalThyroid Stimulating Bibrkwu4069-21-77 01:46:59 * Test Item Value Reference Range Interpretation Comme nts TSH (test code = 1056268262) 1.14 0.45-4.70 Lab Interpretation (test cod e = 52239-3) Normal [facility] HospitalFR [id number] 01:33:00* Test Item Value Reference Range Interpretation Comme nts FREE T3 (test code = 0400215687) 3.68 pg/mL 2.77-5.27 Lab Interpretation (test cod e = 87469-9) Normal [facility]PO[facility] (AUT[facility]ATED)2023-12-15 00:57:48* Test Item Value Reference Range Interpretation Comme nts POCT GLU (test code = 2734194449) 131 mg/dL 70-110 H Lab Interpretation (test cod e = 98789-1) Abnormal [facility] HospitalTroponin [id number] 21:45:52* Test Item Value Reference Range Interpretation Comme nts TROPONIN I (test code = 7950107098) 0.009 ng/mL <=0.034 LYNDSAY (test code = [...] of biotin. Lab Interpretation (test code = 00236-3) Normal [facility]. Metabolic Panel (00112)2023-12-14 20:19:49* Test Item Value Reference Range Interpretation Comme nts NA (test code = 2839369257) 138 mmol/L 135-145 K (test code = 7111028578) 3.5 mmol/L 3.5-5.0 CL (test code = 2535674388) 108 mmol/L 98-108 CO2 TOTAL (test code = 6122047962) 24 mmol/L 23-31 AGAP (test code = 0800771741) 6 2-16 BUN (test code = 9637501470) 7 mg/dL 7-23 GLUCOSE (test code = 8972553821) 96 mg/dL 70-110 CREATININE (test code = 2160-0) 0.51 mg/dL 0.50-1.04 TOTAL BILI (test code = 6859279069) 0.4 mg/dL 0.1-1.1 CALCIUM (test code = 9986474149) 8.6 mg/dL 8.6-10.6 T PROTEIN (test code = 6721932865) 6.8 g/dL 6.3-8.2 ALBUMIN (test code = 5702987742) 3.8 g/dL 3.5-5.0 ALK PHOS (test code = 5642819592) 107 U/L 34-122 ALTv (test code = 1742-6) 13 U/L 5-35 AST(SGOT) (test code = 9905932613) 28 U/L 13-40 eGFR (test code = 49029-9) 113.2 mL/min/1.73m2 CKD-EPI eGFR (20 21). Assuming creatinine has been stable day-to-day for at least three months, the eGFR indicates Category G1 (>= 90 mL/min/1.73 m2) [id number] 20:15:27* Test Item Value Reference Range Interpretation Comme nts TROPONIN I (test code = 0860657755) 0.009 ng/mL <=0.034 LYNDSAY (test code = [...] of biotin. Lab Interpretation (test code = 67657-5) Normal [facility] HospitalN-Terminal Qvu-Dym5400-87-27 20:12:51* Test Item Value Reference Range Interpretation Comme nts NT-proBNP (test code = 03585-8) 2250 pg/mL <=125 H LYNDSAY (test code = LYNDSAY) Positive: Heart Failure Likely Lab Interpretation (test code = 63367-1) Abnormal [facility] 1 [id number] 20:00:17EXAM: XR CHEST 1 VW COMPARISON: 12/02/2023 HISTORY: 53 years-old Female; shortness of breath FINDINGS: Lungs: The lung volumes are normal. Left upper lung calcified granuloma. Nofocal opacities. No pneumothorax. No pleural effusion. Heart/Mediastinum: The cardiac silhouette appears normal. Bones andsoft tissues: No acute osseous findings are detected.Redemonstrated ACDF projecting over the lower cervical spine.[facility] HospitalD-Hrtmg9378-41-23 19:45:05* Test Item Value Reference Range Interpretation Comments D-DIMER (test code = 8090577493) 1.33 See_Comment H [Automated message] The system [...] a diagnosis. Lab Interpretation (test code = 31289-4) Abnormal [facility] HospitalCb with Gcrm1553-82-62 19:39:29* Test Item Value Reference Range Interpretation [...] g/dL 31.6-35.1 L RDW-SD (test code = 76642-0) 70.2 fL 39.0-49.9 H RDW-CV (test code = 788-0) 21.6 % 12.0-15.5 H PLT (test code = 777-3) 259 166-358 MPV (test code = 70710-7) 8.7 fL 9.5-12.9 L NRBC/100 WBC (test code = 5837592973) 0.0 0.0-10.0 NRBC x10^3 (test code = 4626432535) See_Comment [Automated messa ge] The system which generated this result transmitted reference range: 10*3/?L. The reference range was not used to interpret this result as normal/abnormal. GRAN MAT (NEUT) % (test code = 770-8) 57.7 % IMM GRAN % (test code = 2009154162) 0.40 % LYMPH % (test code = 736-9) 30.2 % MONO % (test code = 5905-5) 9.9 % EOS % (test code = 713-8) 0.8 % BASO % (test code = 706-2) 1.0 % GRAN MAT x10^3(ANC) (test code = 1539318669) 4.17 10*3/uL 1.88-7.09 IMM GRAN x10^3 (test code = 2631796877) 0.03 10*3/uL 0.00-0.06 LYMPH x10^3 (test code = 731-0) 2.19 10*3/uL 1.32-3.29 MONO x10^3 (test code = 742-7) 0.72 10*3/uL 0.33-0.92 EOS x10^3 (test code = 711-2) 0.06 10*3/uL 0.03-0.39 BASO x10^3 (test code = 704-7) 0.07 10*3/uL 0.01-0.07 Lab Interpretation (test code = 86416-0) Abnormal [facility] GLUCOSE (AUTOMATED)2023-12-03 21:30:58* Test Item Value Reference Range Interpretation Comme nts POCT GLU (test code = 0422141602) 102 mg/dL 70-110 Lab Interpretation (test cod e = 30796-2) Normal [facility] Metabolic Panel (NA, K, CL, CO2, GLUCOSE, BUN, CREATININE, CA)2023-12-03 18:22:31* Test Item Value Reference Range Interpretation Comme nts NA (test code = 1027115741) 135 mmol/L 135-145 K (test code = 4286258887) 3.9 mmol/L 3.5-5.0 CL (test code = 8127834369) 103 mmol/L 98-108 CO2 TOTAL (test code = 0206683646) 29 mmol/L 23-31 AGAP (test code = 2418221165) 3 2-16 BUN (test code = 8597458443) 12 mg/dL 7-23 GLUCOSE (test code = 4030473542) 85 mg/dL 70-110 CREATININE (test code = 2160-0) 0.63 mg/dL 0.50-1.04 CALCIUM (test code = 9373643932) 8.7 mg/dL 8.6-10.6 eGFR (test code = 43392-2) 107.6 mL/min/1.73m2 CKD-EPI eGFR (20 21). Assuming creatinine has been stable day-to-day for at least three months, the eGFR indicates Category G1 (>= 90 mL/min/1.73 m2) [facility] GLUCOSE (AUTOMATED)2023-12-03 16:52:56* Test Item Value Reference Range Interpretation Comme nts POCT GLU (test code = 5090238863) 98 mg/dL 70-110 Lab Interpretation (test cod e = 62673-9) Normal [facility] GLUCOSE (AUTOMATED)2023-12-03 13:01:11* Test Item Value Reference Range Interpretation Comme nts POCT GLU (test code = 4308508150) 102 mg/dL 70-110 Lab Interpretation (test cod e = 55998-4) Normal [facility] Metabolic Panel (NA, K, CL, CO2, GLUCOSE, BUN, CREATININE, CA)2023-12-03 10:22:08* Test Item Value Reference Range Interpretation Comme nts NA (test code = 4002027426) 138 mmol/L 135-145 K (test code = 3062727005) 3.2 mmol/L 3.5-5.0 L CL (test code = 6202955741) 105 mmol/L 98-108 CO2 TOTAL (test code = 4260458868) 26 mmol/L 23-31 AGAP (test code = 7324141967) 7 2-16 BUN (test code = 0028723494) 11 mg/dL 7-23 GLUCOSE (test code = 7728443062) 96 mg/dL 70-110 CREATININE (test code = 2160-0) 0.61 mg/dL 0.50-1.04 CALCIUM (test code = 5456479542) 8.6 mg/dL 8.6-10.6 eGFR (test code = 97834-6) 108.4 mL/min/1.73m2 CKD-EPI eGFR (2020). Assuming creatinine has been stable day-to-day for at least three months, the eGFR indicates Category G1 (>= 90 mL/min/1.73 m2) Lab Interpretation (test code = 76815-8) Abnormal [facility] HospitalMagnesium2024-05-16 10:22:08* Test Item Value Reference Range Interpretation Comme nts MAGNESIUM (test code = 1914845482) 1.9 mg/dL 1.7-2.4 Lab Interpretation (test cod e = 85634-2) Normal [facility] HospitalHepatic Function Panel (65128) (ALB,T.PRO,BILI T,BU/BC,ALT,AST,ALK PHOS)2023-12-03 10:22:08* Test Item Value Reference Range Interpretation Comme nts TOTAL BILI (test code = 6402450652) 0.5 mg/dL 0.1-1.1 BILI UNCON (test code = 7443662131) 0.2 mg/dL 0.1-1.1 BILI CONJ (test code = 9734371599) 0.0 mg/dL 0.0-0.3 T PROTEIN (test code = 1042859215) 6.7 g/dL 6.3-8.2 ALBUMIN (test code = 4953793154) 3.7 g/dL 3.5-5.0 ALK PHOS (test code = 1810045376) 135 U/L 34-122 H ALTv (test code = 1742-6) 26 U/L 5-35 AST(SGOT) (test code = 1135832273) 24 U/L 13-40 Lab Interpretation (test cod e = 81464-8) Abnormal [facility] HospitalAC Panel 21 + Lactic Riiu1141-43-27 02:00:25* Test Item Value Reference Range Interpretation Comme nts PH (test code = 6783998820) 7.40 7.32-7.42 PCO2 NOEMI (test code = 0772279500) 40 41-51 L PO2 NOEMI (test code = 1742946891) 34 25-40 HCO3 NOEMI (test code = 2087442728) 24 24-28 AC VBE(BEAKER) (test code = 5334940779) -0.8 mEq/L THB NOEMI (test code = 2179122065) 9.3 g/dL 12.0-16.0 L %O2HB NOEMI (test code = 6992160693) 57.9 % 52.0-63.0 %COHB NOEMI (test code = 7472644742) 1.1 % 0.0-1.5 %METHB NOEMI (test code = 7571438370) 0.3 % 0.4-1.5 L VOL%O2 NOEMI (test code = 6813149597) 7.6 % 6.0-12.0 NA (test code = 1575602954) 139 mmol/L 135-145 K+ (test code = 4076729168) 3.5 mmol/L 3.5-5.0 AC CA IONZ (test code = 3414416909) 4.50 mg/dL 4.50-5.30 GLUCOSE (test code = 6034890684) 88 mg/dL 70-110 LACTIC ACID (test code = 2208729030) 1.63 mmol/L 0.50-2.20 QUES Lab Interpretation (test cod e = 77013-2) Abnormal [facility]CT [facility] PULMON[facility] GXSCTJHFE6497-36-63 19:47:28HISTORY: Chest pain, rule out P.E. 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 Lab Interpretation (test code = 09982-9) Normal [facility] HospitalN-Terminal Ucz-Del1284-57-15 19:37:29* Test Item Value Reference Range Interpretation Comme nts NT-proBNP (test code = 26951-0) 3420 pg/mL <=125 H LYNDSAY (test code = LYNDSAY) Positive: Heart Failure Likely Lab Interpretation (test code = 32967-5) Abnormal [facility] HospitalCbc with Lzfc9081-84-44 19:28:47* Test Item Value Reference Range Interpretation [...] g/dL 31.6-35.1 L RDW-SD (test code = 22413-9) 68.9 fL 39.0-49.9 H RDW-CV (test code = 788-0) 22.6 % 12.0-15.5 H PLT (test code = 777-3) 379 166-358 H MPV (test code = 58692-8) 9.1 fL 9.5-12.9 L NRBC/100 WBC (test code = 4821687251) 0.0 0.0-10.0 NRBC x10^3 (test code = 9119878128) See_Comment [Automated messa ge] The system which generated this result transmitted reference range: 10*3/?L. The reference range was not used to interpret this result as normal/abnormal. GRAN MAT (NEUT) % (test code = 770-8) 73.5 % IMM GRAN % (test code = 4791379762) 1.70 % LYMPH % (test code = 736-9) 14.9 % MONO % (test code = 5905-5) 8.3 % EOS % (test code = 713-8) 1.2 % BASO % (test code = 706-2) 0.4 % GRAN MAT x10^3(ANC) (test code = 2079383067) 8.05 10*3/uL 1.88-7.09 H IMM GRAN x10^3 (test code = 7898662647) 0.19 10*3/uL 0.00-0.06 H LYMPH x10^3 (test code = 731-0) 1.63 10*3/uL 1.32-3.29 MONO x10^3 (test code = 742-7) 0.91 10*3/uL 0.33-0.92 EOS x10^3 (test code = 711-2) 0.13 10*3/uL 0.03-0.39 BASO x10^3 (test code = 704-7) 0.04 10*3/uL 0.01-0.07 Lab Interpretation (test code = 33806-4) [facility]normal [facility] 1 [id number] 19:28:17HISTORY: Dyspnea. TECHNIQUE: Portable AP view of the chest is obtained. Comparison made with11/21/2023 study. FINDINGS: No acute pneumonia. No pneumothorax or pleural effusion orpulmonary congestion detected. Mild cardiomegaly noted. Multilevel lowercervical ACDF surgical changes partially visualized. Mild degenerativechanges noted in the right glenohumeral joint. CONCLUSIONS: Mild cardiomegaly.[facility] HospitalComp. Metabolic Panel (51947) 2023-12-02 19:27:30* Test Item Value Reference Range Interpretation Comme nts NA (test code = 6201166763) 138 mmol/L 135-145 K (test code = 4220613050) 3.8 mmol/L 3.5-5.0 CL (test code = 1597690798) 106 mmol/L 98-108 CO2 TOTAL (test code = 4281334605) 22 mmol/L 23-31 L AGAP (test code = 9575600487) 10 2-16 BUN (test code = 4559097439) 11 mg/dL 7-23 GLUCOSE (test code = 9262160872) 103 mg/dL 70-110 CREATININE (test code = 2160-0) 0.56 mg/dL 0.50-1.04 TOTAL BILI (test code = 8506886952) 0.8 mg/dL 0.1-1.1 CALCIUM (test code = 3918602190) 8.9 mg/dL 8.6-10.6 T PROTEIN (test code = 3429593250) 7.3 g/dL 6.3-8.2 ALBUMIN (test code = 6572353386) 3.9 g/dL 3.5-5.0 ALK PHOS (test code = 8064176314) 147 U/L 34-122 H ALTv (test code = 1742-6) 34 U/L 5-35 AST(SGOT) (test code = 3042000294) 30 U/L 13-40 eGFR (test code = 49172-7) 110.7 mL/min/1.73m2 CKD-EPI eGFR (2020). Assuming creatinine has been stable day-to-day for at least three months, the eGFR indicates Category G1 (>= 90 mL/min/1.73 m2) Lab Interpretation (test code = 47096-0) Abnormal [facility]inal Xkl-Zxi7478-74-11 17:53:15* Test Item Value Reference Range Interpretation Comme [facility] NT-proBNP (test code = 78637-3) 1070 pg/mL <=125 H LYNDSAY (test code = LYNDSAY) Positive: Heart Failure Likely Lab Interpretation (test code = 31154-6) Abnormal [facility] HospitalPOCT GLU[facility]SE (AUTOMATED)2023-11-28 16:41:29* Test Item Value Reference Range Interpretation Comme nts POCT GLU (test code = 1035849571) 129 mg/dL 70-110 H Lab Interpretation (test cod e = 85848-8) Abnormal [facility] HospitalMagnesium2024-05-11 10:02:12* Test Item Value Reference Range Interpretation Comme nts MAGNESIUM (test code = 9908711570) 2.1 mg/dL 1.7-2.4 Lab Interpretation (test cod e = 67276-0) Normal [facility] HospitalPhosphorus2024-05-11 10:02:12* Test Item Value Reference Range Interpretation Comme nts PHOSPHORUS (test code = 9415330164) 5.9 mg/dL 2.5-5.0 H Lab Interpretation (test cod e = 13333-7) Abnormal [facility]. Metabolic Panel (17424)2023-11-28 10:02:12* Test Item Value Reference Range Interpretation Comme nts NA (test code = 5088461547) 140 mmol/L 135-145 K (test code = 3271916024) 3.7 mmol/L 3.5-5.0 CL (test code = 9693164094) 98 mmol/L 98-108 CO2 TOTAL (test code = 8142618180) 33 mmol/L 23-31 H AGAP (test code = 7332016159) 9 2-16 BUN (test code = 4452456199) 24 mg/dL 7-23 H GLUCOSE (test code = 1353213634) 107 mg/dL 70-110 CREATININE (test code = 2160-0) 0.61 mg/dL 0.50-1.04 TOTAL BILI (test code = 7421538581) 0.6 mg/dL 0.1-1.1 CALCIUM (test code = 9323869212) 8.0 mg/dL 8.6-10.6 L T PROTEIN (test code = 3616353130) 6.0 g/dL 6.3-8.2 L ALBUMIN (test code = 1240643928) 3.4 g/dL 3.5-5.0 L ALK PHOS (test code = 7157944728) 173 U/L 34-122 H ALTv (test code = 1742-6) 61 U/L 5-35 H AST(SGOT) (test code = 4435674550) 29 U/L 13-40 eGFR (test code = 38238-6) 108.4 mL/min/1.73m2 CKD-EPI eGFR (2020). Assuming creatinine has been stable day-to-day for at least three months, the eGFR indicates Category G1 (>= 90 mL/min/1.73 m2) Lab Interpretation (test code = 24636-3) Abnormal [facility] with Fwtg4855-39-20 09:37:29* Test Item Value Reference Range Interpretation [...] g/dL 31.6-35.1 L RDW-SD (test code = 31927-8) 65.6 fL 39.0-49.9 H RDW-CV (test code = 788-0) 22.0 % 12.0-15.5 H PLT (test code = 777-3) 292 166-358 MPV (test code = 25883-4) 9.1 fL 9.5-12.9 L NRBC/100 WBC (test code = 8182629176) 0.0 0.0-10.0 NRBC x10^3 (test code = 5692622037) See_Comment [Automated messa ge] The system which generated this result transmitted reference range: 10*3/?L. The reference range was not used to interpret this result as normal/abnormal. GRAN MAT (NEUT) % (test code = 770-8) 62.0 % IMM GRAN % (test code = 0595004798) 1.20 % LYMPH % (test code = 736-9) 28.5 % MONO % (test code = 5905-5) 7.3 % EOS % (test code = 713-8) 0.9 % BASO % (test code = 706-2) 0.1 % GRAN MAT x10^3(ANC) (test code = 7755478471) 4.98 10*3/uL 1.88-7.09 IMM GRAN x10^3 (test code = 4814187539) 0.10 10*3/uL 0.00-0.06 H LYMPH x10^3 (test code = 731-0) 2.29 10*3/uL 1.32-3.29 MONO x10^3 (test code = 742-7) 0.59 10*3/uL 0.33-0.92 EOS x10^3 (test code = 711-2) 0.07 10*3/uL 0.03-0.39 BASO x10^3 (test code = 704-7) 0.01-0.07 Lab Interpretation (test code = 83905-1) Abnormal [facility] GLUCOSE (AUTOMATED)2023-11-28 01:32:15* Test Item Value Reference Range Interpretation Comme nts POCT GLU (test code = 7163411796) 154 mg/dL 70-110 H Lab Interpretation (test cod e = 52616-6) Abnormal [facility] GLUCOSE (AUTOMATED)2023-11-27 21:45:44* Test Item Value Reference Range Interpretation Comme nts POCT GLU (test code = 4790312347) 183 mg/dL 70-110 H Lab Interpretation (test cod e = 03447-0) Abnormal [facility] GLUCOSE (AUTOMATED)2023-11-27 16:31:46* Test Item Value Reference Range Interpretation Comme nts POCT GLU (test code = 5015027474) 96 mg/dL 70-110 Lab Interpretation (test cod e = 48696-6) Normal [facility] GLUCOSE (AUTOMATED)2023-11-27 12:42:32* Test Item Value Reference Range Interpretation Comme nts POCT GLU (test code = 5793582266) 88 mg/dL 70-110 Lab Interpretation (test cod e = 85927-4) [facility] [id number] 06:44:07* Test Item Value Reference Range Interpretation Comme nts LACTIC ACID (test code = 0906309595) 1.48 mmol/L 0.50-2.20 Lab Interpretation (test cod e = 63207-7) Normal [facility] GLUCOSE (AUTOMATED)2023-11-27 02:37:00* Test Item Value Reference Range Interpretation Comme nts POCT GLU (test code = 4890120742) 167 mg/dL 70-110 H Lab Interpretation (test cod e = 18733-6) [facility]normal [facility], [id number] 00:22:04* Test Item Value Reference Range Interpretation Comme nts Valproic Acid, Free (test code = 2288091081) 23.8 ug/mL 4.0-15.0 H LYNDSAY (test code = LYNDSAY) Toxic Range: ? Greater than 15 ug/mL Test developed and characteristics determined by [facility] Laboratory Services. Lab Interpretation (test code = 13999-1) [facility]normal [facility]24-[facility] 22:17:52* Test Item Value Reference Range Interpretation Comme nts FOLATE SER (test code = 0243053589) 10.9 ng/mL 3.0-20.0 Lab Interpretation (test cod e = 10058-9) Normal [facility], [id number] 22:17:52* Test Item Value Reference Range Interpretation Comme nts VIT B12 (test code = 7291159208) 485 pg/mL 240-930 LYNDSAY (test code = LYNDSAY) Biotin has been reported to cause a positive bias, interpret results relative to patient's use of biotin. Lab Interpretation (test code = 99453-1) [facility] WO [id number] 22:17:11EXAM: CT HEAD WO CONTRAST HISTORY: 53 [...] The calvarium and central skull base areunremarkable. [facility]2024-[facility] 22:11:53* Test Item Value Reference Range Interpretation Comme nts MAGNESIUM (test code = 1762985961) 2.1 mg/dL 1.7-2.4 Lab Interpretation (test cod e = 16989-2) Normal [facility]. Metabolic Panel (49971)2023-11-26 22:11:53* Test Item Value Reference Range Interpretation Comme nts NA (test code = 7436767871) 132 mmol/L 135-145 L K (test code = 8960936800) 4.3 mmol/L 3.5-5.0 CL (test code = 3843821808) 94 mmol/L 98-108 L CO2 TOTAL (test code = 8912801566) 34 mmol/L 23-31 H AGAP (test code = 6983468938) 4 2-16 BUN (test code = 9263952033) 24 mg/dL 7-23 H GLUCOSE (test code = 3667605217) 178 mg/dL 70-110 H CREATININE (test code = 2160-0) 0.62 mg/dL 0.50-1.04 TOTAL BILI (test code = 0041657267) 0.6 mg/dL 0.1-1.1 CALCIUM (test code = 8048418511) 8.0 mg/dL 8.6-10.6 L T PROTEIN (test code = 0531133523) 6.1 g/dL 6.3-8.2 L ALBUMIN (test code = 8399185773) 3.5 g/dL 3.5-5.0 ALK PHOS (test code = 3240648271) 212 U/L 34-122 H ALTv (test code = 1742-6) 80 U/L 5-35 H AST(SGOT) (test code = 3916628724) 51 U/L 13-40 H eGFR (test code = 20181-8) 108.0 mL/min/1.73m2 CKD-EPI eGFR (2020). Assuming creatinine has been stable day-to-day for at least three months, the eGFR indicates Category G1 (>= 90 mL/min/1.73 m2) Lab Interpretation (test code = 26294-0) [facility] 21:19:06* Test Item Value Reference Range Interpretation Comme nts POCT GLU (test code = 4150415437) 224 mg/dL 70-110 H Lab Interpretation (test cod e = 57597-8) [facility] (Levet[facility]am)2023-11-26 19:45:17* Test Item Value Reference Range Interpretation Comme nts KEPPRA (test code = 8062495018) 12-46 L LYNDSAY (test code = LYNDSAY) Therapeutic range: 12-46 ?g/mL ? ?Toxic: Not well established.Test developed and characteristics determined by [facility] Laboratory Services. Lab Interpretation (test code = 98017-6) Abnormal [facility] HospitalL[facility] Acid Whole Cwsgv2597-93-14 18:11:07* Test Item Value Reference Range Interpretation Comme nts LACTIC ACID (test code = 8698324460) 6.19 mmol/L 0.50-2.20 H Lab Interpretation (test cod e = 07459-2) [facility]normal [facility]2023-11-26 17:06:14* Test Item Value Reference Range Interpretation Comme nts POCT GLU (test code = 0135056123) 293 mg/dL 70-110 H Lab Interpretation (test cod e = 85681-2) [facility] Metabolic Panel (00458)2023-11-26 14:21:31* Test Item Value Reference Range Interpretation Comme nts NA (test code = 8267811903) 140 mmol/L 135-145 K (test code = 2669050236) 3.9 mmol/L 3.5-5.0 CL (test code = 5897971980) 93 mmol/L 98-108 L CO2 TOTAL (test code = 1288502408) 38 mmol/L 23-31 H AGAP (test code = 0178059272) 9 2-16 BUN (test code = 2799611829) 25 mg/dL 7-23 H GLUCOSE (test code = 1456383995) 83 mg/dL 70-110 CREATININE (test code = 2160-0) 0.71 mg/dL 0.50-1.04 TOTAL BILI (test code = 2700529168) 0.7 mg/dL 0.1-1.1 CALCIUM (test code = 7423721117) 8.7 mg/dL 8.6-10.6 T PROTEIN (test code = 5847761367) 6.6 g/dL 6.3-8.2 ALBUMIN (test code = 8502459318) 3.6 g/dL 3.5-5.0 ALK PHOS (test code = 8727774968) 220 U/L 34-122 H ALTv (test code = 1742-6) 95 U/L 5-35 H AST(SGOT) (test code = 3075119272) 47 U/L 13-40 H eGFR (test code = 58865-6) 103.1 mL/min/1.73m2 CKD-EPI eGFR (2020). Assuming creatinine has been stable day-to-day for at least three months, the eGFR indicates Category G1 (>= 90 mL/min/1.73 m2) Lab Interpretation (test code = 81439-4) [facility]normal [facility]2024-[facility] 14:03:47* Test Item Value Reference Range Interpretation Comme nts MAGNESIUM (test code = 8940062894) 2.3 mg/dL 1.7-2.4 Lab Interpretation (test cod e = 10752-1) Normal [facility] with Syyu3704-91-43 13:57:47* Test Item Value Reference Range Interpretation [...] g/dL 31.6-35.1 L RDW-SD (test code = 10148-7) 67.3 fL 39.0-49.9 H RDW-CV (test code = 788-0) 22.5 % 12.0-15.5 H PLT (test code = 777-3) 285 166-358 MPV (test code = 74827-4) 9.2 fL 9.5-12.9 L NRBC/100 WBC (test code = 7645758483) 0.3 0.0-10.0 NRBC x10^3 (test code = 1129117033) 0.03 See_Comment [Automated messa ge] The system which generated this result transmitted reference range: 10*3/?L. The reference range was not used to interpret this result as normal/abnormal. GRAN MAT (NEUT) % (test code = 770-8) 70.5 % IMM GRAN % (test code = 7665623206) 0.80 % LYMPH % (test code = 736-9) 21.7 % MONO % (test code = 5905-5) 6.4 % EOS % (test code = 713-8) 0.5 % BASO % (test code = 706-2) 0.1 % GRAN MAT x10^3(ANC) (test code = 5703465421) 7.54 10*3/uL 1.88-7.09 H IMM GRAN x10^3 (test code = 9210477683) 0.09 10*3/uL 0.00-0.06 H LYMPH x10^3 (test code = 731-0) 2.32 10*3/uL 1.32-3.29 MONO x10^3 (test code = 742-7) 0.69 10*3/uL 0.33-0.92 EOS x10^3 (test code = 711-2) 0.05 10*3/uL 0.03-0.39 BASO x10^3 (test code = 704-7) 0.01-0.07 Lab Interpretation (test code = 54933-0) Abnormal [facility] HospitalL[facility] Acid Whole Inlms3565-07-04 10:06:23* Test Item Value Reference Range Interpretation Comme [facility] LACTIC ACID (test code = 6963340541) 2.41 mmol/L 0.50-2.20 H Lab Interpretation (test cod e = 49209-6) Abnormal [facility] GLUCOSE (AUTOMATED)2023-11-26 02:14:06* Test Item Value Reference Range Interpretation Comme [facility] POCT GLU (test code = 1804171322) 288 mg/dL 70-110 H Lab Interpretation (test cod e = 03178-7) Abnormal [facility] Acid Whole Hvgbl4517-80-58 00:56:52* Test Item Value Reference Range Interpretation Comme [facility] LACTIC ACID (test code = 1110304572) 2.93 mmol/L 0.50-2.20 H Lab Interpretation (test cod e = 54928-7) [facility]normal [facility]ro[facility] ([facility] - Duration of test: Continuous EEG Monitoring (LTM); Release to patient:Riipaoxne8883-34-99 00:00:00 * Test Item Value Reference Range Interpretation Comme nts LYNDSAY (test code = LYNDSAY) LONG-TERM EEG MONITORING #1: 11/26/2023, 15:40 - 16: 31 Name: Heather TurnerN: [id number] Age:53 year oldSex: female History from chart review: This is a 53 year old female with a PMH significant for HFrEF (~35% 05/2023), HTN, Smoker, COPD (on intermittent home O2), chronic low back pain, seizure disorder, C3-C4 ACDF and L3-L4 laminectomies (06/01/23) c/b chronic low back pain 2/2 lumbar spinal stenosis, and depression presenting from [facility] ED due to SOB. Level of Consciousness: ?Awake and Drowsy Reason for EEG: History of seizures Current Antiseizure Medications: ? ?divalproex ER (DEPAKOTE ER) 24 hr tablet 1,250 mg, 1,250 mg, Oral, Q12H TECHNICAL INFORMATION: ?The [place] electroencephalogram was simultaneously recorded with the video. [...] segment. Laura Ramirez MD, PhD, FAESData: 11/26/2023 [facility] EEG MONITORING SEGMENT #2: 11/26/23, 16:31:09-19:29:41 In [...] Interpreted by Dewey Neal MD on 11/26/23 -----SOLUTIONS ARCHITECT EEG MONITORING SEGMENT #3: 11/26/23, 19:29:41 to [...] on 11/27/23 Lab Interpretation (test code = 03441-9) Abnormal [facility]. Metabolic Panel (00999)2023-11-25 21:24:39* Test Item Value Reference Range Interpretation Comme nts NA (test code = 1814754707) 134 mmol/L 135-145 L K (test code = 1640611665) 4.3 mmol/L 3.5-5.0 CL (test code = 8561955393) 89 mmol/L 98-108 L CO2 TOTAL (test code = 9206434763) 37 mmol/L 23-31 H AGAP (test code = 9550255281) 8 2-16 BUN (test code = 3230444010) 24 mg/dL 7-23 H GLUCOSE (test code = 8822952663) 177 mg/dL 70-110 H CREATININE (test code = 2160-0) 0.69 mg/dL 0.50-1.04 TOTAL BILI (test code = 7719869193) 0.9 mg/dL 0.1-1.1 CALCIUM (test code = 8579831939) 8.6 mg/dL 8.6-10.6 T PROTEIN (test code = 6044327507) 7.3 g/dL 6.3-8.2 ALBUMIN (test code = 2222608843) 4.1 g/dL 3.5-5.0 ALK PHOS (test code = 5986288854) 263 U/L 34-122 H ALTv (test code = 1742-6) 116 U/L 5-35 H AST(SGOT) (test code = 4862589444) 36 U/L 13-40 eGFR (test code = 29354-4) 105.2 mL/min/1.73m2 CKD-EPI eGFR (2020). Assuming creatinine has been stable day-to-day for at least three months, the eGFR indicates Category G1 (>= 90 mL/min/1.73 m2) Lab Interpretation (test code = 56445-1) [facility]normal [facility]2024-05-08 21:24:39* Test Item Value Reference Range Interpretation Comme nts MAGNESIUM (test code = 4629472698) 2.1 mg/dL 1.7-2.4 Lab Interpretation (test cod e = 86408-2) [facility] Whole Yfuwu6272-79-05 21:10:26* Test Item Value Reference Range Interpretation Comme nts LACTIC ACID (test code = 0680859183) 4.07 mmol/L 0.50-2.20 H Lab Interpretation (test cod e = 75396-6) Abnormal [facility] GLUCOSE (AUTOMATED)2023-11-25 21:01:04* Test Item Value Reference Range Interpretation Comme nts POCT GLU (test code = 1559906015) 173 mg/dL 70-110 H Lab Interpretation (test cod e = 44163-4) Abnormal [facility] GLUCOSE (AUTOMATED)2023-11-25 16:59:00* Test Item Value Reference Range Interpretation Comme nts POCT GLU (test code = 9944115309) 220 mg/dL 70-110 H Lab Interpretation (test cod e = 11307-7) Abnormal [facility] GLUCOSE (AUTOMATED)2023-11-25 13:06:20* Test Item Value Reference Range Interpretation Comme nts POCT GLU (test code = 6160731843) 92 mg/dL 70-110 Lab Interpretation (test cod e = 74790-5) Normal [facility] Acid Whole Ppqmi5847-28-25 09:28:51* Test Item Value Reference Range Interpretation Comme nts LACTIC ACID (test code = 4379147238) 1.66 mmol/L 0.50-2.20 Lab Interpretation (test cod e = 60759-6) [facility] Dxsak8933-40-20 04:58:57* Test Item Value Reference Range Interpretation Comme nts LACTIC ACID (test code = 1571429405) 2.00 mmol/L 0.50-2.20 Lab Interpretation (test cod e = 77934-6) Normal [facility] GLUCOSE (AUTOMATED)2023-11-25 03:05:13* Test Item Value Reference Range Interpretation Comme nts POCT GLU (test code = 6806470042) 189 mg/dL 70-110 H Lab Interpretation (test cod e = 10610-1) Abnormal [facility] ABDOMEN PELVIS W HKNEZNSM5965-44-12 00:18:09CT ABDOMEN PELVIS W CONTRAST 11/24/2023 5:07 [...] pelvic and upper thigh skinthickening and subcutaneous edema.[facility] Acid Whole Facka8118-28-64 21:31:49* Test Item Value Reference Range Interpretation Comme [facility] LACTIC ACID (test code = 4631915578) 4.54 mmol/L 0.50-2.20 H Lab Interpretation (test cod e = 99022-4) Abnormal [facility] GLUCOSE (AUTOMATED)2023-11-24 21:31:39* Test Item Value Reference Range Interpretation Comme nts POCT GLU (test code = 0358535402) 198 mg/dL 70-110 H Lab Interpretation (test cod e = 16714-2) Abnormal [facility] GLUCOSE (AUTOMATED)2023-11-24 17:53:57* Test Item Value Reference Range Interpretation Comme nts POCT GLU (test code = 5486956249) 226 mg/dL 70-110 H Lab Interpretation (test cod e = 17771-2) Abnormal [facility] GLUCOSE (AUTOMATED)2023-11-24 17:53:57* Test Item Value Reference Range Interpretation Comme nts POCT GLU (test code = 2052980676) 226 mg/dL 70-110 H Lab Interpretation (test cod e = 12650-5) Abnormal [facility] GLUCOSE (AUTOMATED)2023-11-24 17:53:57* Test Item Value Reference Range Interpretation Comme nts POCT GLU (test code = 9225955127) 226 mg/dL 70-110 H Lab Interpretation (test cod e = 80174-5) Abnormal [facility] Whole Vgsez3781-50-90 15:48:27* Test Item Value Reference Range Interpretation Comme nts LACTIC ACID (test code = 5908235390) 4.43 mmol/L 0.50-2.20 H Lab Interpretation (test cod e = 47590-1) Abnormal [facility] HospitalL[facility] Acid Whole Zqsek5274-53-94 15:48:27* Test Item Value Reference Range Interpretation Comme nts LACTIC ACID (test code = 5235953092) 4.43 mmol/L 0.50-2.20 H Lab Interpretation (test cod e = 66164-5) Abnormal [facility] Acid Whole Oxvzq9565-19-68 15:48:27* Test Item Value Reference Range Interpretation Comme nts LACTIC ACID (test code = 9686914915) 4.43 mmol/L 0.50-2.20 H Lab Interpretation (test cod e = 83653-7) Abnormal [facility] HospitalCardiovascular Satzpnsbwmrfodx7789-91-96 14:28:29? ?RHC/Coronary Angiography Date of Service: 11/23/2023 ?3:18 PM Indication/Diagnosis: heart failure Consent source: self Consent type: indications/complications discussed with patient/legal guardian; written consent obtained Time out completed: yes Aseptic technique: Chlorprep Local Anesthesia: 1% lidocaine without epinephrine Sedation: fentanyl 50 mcg, Versed 2 mg Access site: right radial artery, RIJ Webster 4.0 5fr8 Fr IJ sheathSwan Rosalba ? [...] ?Faculty, was present for the entire procedure. DUDLEY Ventura Post-Procedure Sedation AddendumImmediately prior to start [...] sided failure. Nataliia Ivy professor.Division of cardiovascular [facility]UTR[facility]2023-11-24 12:34:31* Test Item Value Reference Range Interpretation Comme nts POCT GLU (test code = 7268823983) 114 mg/dL 70-110 H Lab Interpretation (test cod e = 69539-6) Abnormal [facility] GLUCOSE (AUTOMATED)2023-11-24 12:34:31* Test Item Value Reference Range Interpretation Comme nts POCT GLU (test code = 1098446215) 114 mg/dL 70-110 H Lab Interpretation (test cod e = 75557-6) Abnormal [facility] GLUCOSE (AUTOMATED)2023-11-24 12:34:31* Test Item Value Reference Range Interpretation Comme nts POCT GLU (test code = 1018905189) 114 mg/dL 70-110 H Lab Interpretation (test cod e = 35470-5) [facility]normal [facility]2024-05-07 11:10:57* Test Item Value Reference Range Interpretation Comme nts MAGNESIUM (test code = 5593054469) 2.2 mg/dL 1.7-2.4 Lab Interpretation (test cod e = 08566-5) Normal [facility]. Metabolic Panel (52101)2023-11-24 11:10:57* Test Item Value Reference Range Interpretation Comme nts NA (test code = 2938876336) 141 mmol/L 135-145 K (test code = 3195054606) 4.1 mmol/L 3.5-5.0 CL (test code = 3404050428) 97 mmol/L 98-108 L CO2 TOTAL (test code = 0109350792) 36 mmol/L 23-31 H AGAP (test code = 0269399240) 8 2-16 BUN (test code = 1835826428) 20 mg/dL 7-23 GLUCOSE (test code = 0301183531) 125 mg/dL 70-110 H CREATININE (test code = 2160-0) 0.66 mg/dL 0.50-1.04 TOTAL BILI (test code = 9861652371) 0.7 mg/dL 0.1-1.1 CALCIUM (test code = 9148757587) 8.4 mg/dL 8.6-10.6 L T PROTEIN (test code = 7930413447) 6.5 g/dL 6.3-8.2 ALBUMIN (test code = 2897380336) 3.7 g/dL 3.5-5.0 ALK PHOS (test code = 6307135187) 266 U/L 34-122 H ALTv (test code = 1742-6) 149 U/L 5-35 H AST(SGOT) (test code = 3484089739) 35 U/L 13-40 eGFR (test code = 32551-9) 106.4 mL/min/1.73m2 CKD-EPI eGFR (2020). Assuming creatinine has been stable day-to-day for at least three months, the eGFR indicates Category G1 (>= 90 mL/min/1.73 m2) Lab Interpretation (test code = 23443-8) [facility]normal [facility]2024-[facility]-07 11:10:57* Test Item Value Reference Range Interpretation Comme nts MAGNESIUM (test code = 3321653918) 2.2 mg/dL 1.7-2.4 Lab Interpretation (test cod e = 06805-7) Normal [facility] Metabolic Panel (81745)2023-11-24 11:10:57* Test Item Value Reference Range Interpretation Comme nts NA (test code = 1553406292) 141 mmol/L 135-145 K (test code = 7583677405) 4.1 mmol/L 3.5-5.0 CL (test code = 6406684726) 97 mmol/L 98-108 L CO2 TOTAL (test code = 7304424010) 36 mmol/L 23-31 H AGAP (test code = 2480047025) 8 2-16 BUN (test code = 3243230702) 20 mg/dL 7-23 GLUCOSE (test code = 2767615180) 125 mg/dL 70-110 H CREATININE (test code = 2160-0) 0.66 mg/dL 0.50-1.04 TOTAL BILI (test code = 8287184281) 0.7 mg/dL 0.1-1.1 CALCIUM (test code = 4802939890) 8.4 mg/dL 8.6-10.6 L T PROTEIN (test code = 9256394956) 6.5 g/dL 6.3-8.2 ALBUMIN (test code = 0711649742) 3.7 g/dL 3.5-5.0 ALK PHOS (test code = 8669775288) 266 U/L 34-122 H ALTv (test code = 1742-6) 149 U/L 5-35 H AST(SGOT) (test code = 1620496358) 35 U/L 13-40 eGFR (test code = 44099-9) 106.4 mL/min/1.73m2 CKD-EPI eGFR (2020). Assuming creatinine has been stable day-to-day for at least three months, the eGFR indicates Category G1 (>= 90 mL/min/1.73 m2) Lab Interpretation (test code = 65351-5) [facility]normal [facility]2024-05-07 11:10:57* Test Item Value Reference Range Interpretation Comme nts MAGNESIUM (test code = 5201766256) 2.2 mg/dL 1.7-2.4 Lab Interpretation (test cod e = 72772-4) Normal [facility] Met[facility] Panel (17483)2023-11-24 11:10:57* Test Item Value Reference Range Interpretation Comme nts NA (test code = 2064205983) 141 mmol/L 135-145 K (test code = 1716852848) 4.1 mmol/L 3.5-5.0 CL (test code = 8271259407) 97 mmol/L 98-108 L CO2 TOTAL (test code = 5507122495) 36 mmol/L 23-31 H AGAP (test code = 6809116491) 8 2-16 BUN (test code = 7722829249) 20 mg/dL 7-23 GLUCOSE (test code = 7814616166) 125 mg/dL 70-110 H CREATININE (test code = 2160-0) 0.66 mg/dL 0.50-1.04 TOTAL BILI (test code = 9822634640) 0.7 mg/dL 0.1-1.1 CALCIUM (test code = 3090194298) 8.4 mg/dL 8.6-10.6 L T PROTEIN (test code = 6338438156) 6.5 g/dL 6.3-8.2 ALBUMIN (test code = 8219540296) 3.7 g/dL 3.5-5.0 ALK PHOS (test code = 8084231047) 266 U/L 34-122 H ALTv (test code = 1742-6) 149 U/L 5-35 H AST(SGOT) (test code = 6452205753) 35 U/L 13-40 eGFR (test code = 94377-5) 106.4 mL/min/1.73m2 CKD-EPI eGFR (2020). Assuming creatinine has been stable day-to-day for at least three months, the eGFR indicates Category G1 (>= 90 mL/min/1.73 m2) Lab Interpretation (test code = 26158-5) [facility] with [facility] Hour Xiiejl6489-99-70 11:07:59* Test Item Value Reference Range Interpretation Comme nts LACTIC ACID (test code = 4334643923) 3.41 mmol/L 0.50-2.20 H Lab Interpretation (test cod e = 15974-8) [facility]normal [facility] with 3 Hour Zzjvji3632-69-13 11:07:59* Test Item Value Reference Range Interpretation Comme nts LACTIC ACID (test code = 6844285056) 3.41 mmol/L 0.50-2.20 H Lab Interpretation (test cod e = 18317-5) [facility]normal [facility] with 3 Hour Ibphuy5969-10-27 11:07:59* Test Item Value Reference Range Interpretation Comme nts LACTIC ACID (test code = 1877093271) 3.41 mmol/L 0.50-2.20 H Lab Interpretation (test cod e = 74805-3) Abnormal [facility] with Jgan3278-79-79 10:28:34* Test Item Value Reference Range Interpretation [...] g/dL 31.6-35.1 L RDW-SD (test code = 07846-5) 67.5 fL 39.0-49.9 H RDW-CV (test code = 788-0) 22.5 % 12.0-15.5 H PLT (test code = 777-3) 245 166-358 MPV (test code = 17130-7) 9.5 fL 9.5-12.9 NRBC/100 WBC (test code = 0314619032) 1.2 0.0-10.0 NRBC x10^3 (test code = 8814473683) 0.11 See_Comment [Automated messa ge] The system which generated this result transmitted reference range: 10*3/?L. The reference range was not used to interpret this result as normal/abnormal. GRAN MAT (NEUT) % (test code = 770-8) 84.8 % IMM GRAN % (test code = 7128742294) 0.80 % LYMPH % (test code = 736-9) 7.3 % MONO % (test code = 5905-5) 7.0 % EOS % (test code = 713-8) 0.0 % BASO % (test code = 706-2) 0.1 % GRAN MAT x10^3(ANC) (test code = 6994148637) 8.03 10*3/uL 1.88-7.09 H IMM GRAN x10^3 (test code = 7099483048) 0.08 10*3/uL 0.00-0.06 H LYMPH x10^3 (test code = 731-0) 0.69 10*3/uL 1.32-3.29 L MONO x10^3 (test code = 742-7) 0.66 10*3/uL 0.33-0.92 EOS x10^3 (test code = 711-2) 0.03-0.39 L BASO x10^3 (test code = 704-7) 0.01-0.07 Lab Interpretation (test code = 29099-5) Abnormal [facility] with Gkdf1488-46-24 10:28:34* Test Item Value Reference Range Interpretation [...] g/dL 31.6-35.1 L RDW-SD (test code = 49452-1) 67.5 fL 39.0-49.9 H RDW-CV (test code = 788-0) 22.5 % 12.0-15.5 H PLT (test code = 777-3) 245 166-358 MPV (test code = 93666-0) 9.5 fL 9.5-12.9 NRBC/100 WBC (test code = 4109022337) 1.2 0.0-10.0 NRBC x10^3 (test code = 2897948420) 0.11 See_Comment [Automated messa ge] The system which generated this result transmitted reference range: 10*3/?L. The reference range was not used to interpret this result as normal/abnormal. GRAN MAT (NEUT) % (test code = 770-8) 84.8 % IMM GRAN % (test code = 8534586469) 0.80 % LYMPH % (test code = 736-9) 7.3 % MONO % (test code = 5905-5) 7.0 % EOS % (test code = 713-8) 0.0 % BASO % (test code = 706-2) 0.1 % GRAN MAT x10^3(ANC) (test code = 4545239750) 8.03 10*3/uL 1.88-7.09 H IMM GRAN x10^3 (test code = 4629595669) 0.08 10*3/uL 0.00-0.06 H LYMPH x10^3 (test code = 731-0) 0.69 10*3/uL 1.32-3.29 L MONO x10^3 (test code = 742-7) 0.66 10*3/uL 0.33-0.92 EOS x10^3 (test code = 711-2) 0.03-0.39 L BASO x10^3 (test code = 704-7) 0.01-0.07 Lab Interpretation (test code = 71850-3) Abnormal [facility] with Netz9517-15-02 10:28:34* Test Item Value Reference Range Interpretation [...] g/dL 31.6-35.1 L RDW-SD (test code = 05366-2) 67.5 fL 39.0-49.9 H RDW-CV (test code = 788-0) 22.5 % 12.0-15.5 H PLT (test code = 777-3) 245 166-358 MPV (test code = 08562-0) 9.5 fL 9.5-12.9 NRBC/100 WBC (test code = 2264091663) 1.2 0.0-10.0 NRBC x10^3 (test code = 5600075802) 0.11 See_Comment [Automated messa ge] The system which generated this result transmitted reference range: 10*3/?L. The reference range was not used to interpret this result as normal/abnormal. GRAN MAT (NEUT) % (test code = 770-8) 84.8 % IMM GRAN % (test code = 0819694714) 0.80 % LYMPH % (test code = 736-9) 7.3 % MONO % (test code = 5905-5) 7.0 % EOS % (test code = 713-8) 0.0 % BASO % (test code = 706-2) 0.1 % GRAN MAT x10^3(ANC) (test code = 4271776061) 8.03 10*3/uL 1.88-7.09 H IMM GRAN x10^3 (test code = 5081790082) 0.08 10*3/uL 0.00-0.06 H LYMPH x10^3 (test code = 731-0) 0.69 10*3/uL 1.32-3.29 L MONO x10^3 (test code = 742-7) 0.66 10*3/uL 0.33-0.92 EOS x10^3 (test code = 711-2) 0.03-0.39 L BASO x10^3 (test code = 704-7) 0.01-0.07 Lab Interpretation (test code = 33397-2) Abnormal [facility] (for use with Heparin Infusion)2023-11-24 06:40:52* Test Item Value Reference Range Interpretation Comme [facility] APTT Patient (test code = 3173-2) 26 26-36 Lab Interpretation (test cod e = 94514-7) Normal [facility] (for use with Heparin Infusion)2023-11-24 06:40:52* Test Item Value Reference Range Interpretation Comme nts APTT Patient (test code = 3173-2) 36 Lab Interpretation (test cod e = 86454-9) [facility] 06:40:52* Test Item Value Reference Range Interpretation Comme nts APTT Patient (test code = 3173-2) -36 Lab Interpretation (test cod e = 38123-5) Normal [facility] GLUCOSE (AUTOMATED)2023-11-24 03:18:58* Test Item Value Reference Range Interpretation Comme nts POCT GLU (test code = 5302033938) 263 mg/dL 70-110 H Lab Interpretation (test cod e = 06202-0) Abnormal [facility] GLUCOSE (AUTOMATED)2023-11-24 03:18:58* Test Item Value Reference Range Interpretation Comme nts POCT GLU (test code = 2219986818) 263 mg/dL 70-110 H Lab Interpretation (test cod e = 82204-7) Abnormal [facility] GLUCOSE (AUTOMATED)2023-11-24 03:18:58* Test Item Value Reference Range Interpretation Comme nts POCT GLU (test code = 6668385078) 263 mg/dL 70-110 H Lab Interpretation (test cod e = 59275-0) Abnormal [facility] GLUCOSE (AUTOMATED)2023-11-23 21:29:57* Test Item Value Reference Range Interpretation Comme nts POCT GLU (test code = 5171051821) 137 mg/dL 70-110 H Lab Interpretation (test cod e = 69630-3) Abnormal [facility] GLUCOSE (AUTOMATED)2023-11-23 21:29:57* Test Item Value Reference Range Interpretation Comme nts POCT GLU (test code = 8064047897) 137 mg/dL 70-110 H Lab Interpretation (test cod e = 51966-2) Abnormal [facility] GLUCOSE (AUTOMATED)2023-11-23 21:29:57* Test Item Value Reference Range Interpretation Comme nts POCT GLU (test code = 5468294557) 137 mg/dL 70-110 H Lab Interpretation (test cod e = 66485-9) [facility] (ALB,T.PRO,BILI T,BU/BC,ALT,AST,ALK PHOS)2023-11-23 17:45:02* Test Item Value Reference Range Interpretation Comme nts TOTAL BILI (test code = 8550542127) 0.7 mg/dL 0.1-1.1 BILI UNCON (test code = 5269663656) 0.1 mg/dL 0.1-1.1 BILI CONJ (test code = 7551052969) 0.0 mg/dL 0.0-0.3 T PROTEIN (test code = 6899927273) 6.2 g/dL 6.3-8.2 L ALBUMIN (test code = 9582346390) 3.5 g/dL 3.5-5.0 ALK PHOS (test code = 7111962123) 274 U/L 34-122 H ALTv (test code = 1742-6) 176 U/L 5-35 H AST(SGOT) (test code = 3646912985) 40 U/L 13-40 Lab Interpretation (test cod e = 04818-5) [facility] (ALB,T.PRO,BILI T,BU/BC,ALT,AST,ALK PHOS)2023-11-23 17:45:02* Test Item Value Reference Range Interpretation Comme nts TOTAL BILI (test code = 9767177863) 0.7 mg/dL 0.1-1.1 BILI UNCON (test code = 0241072263) 0.1 mg/dL 0.1-1.1 BILI CONJ (test code = 7399316493) 0.0 mg/dL 0.0-0.3 T PROTEIN (test code = 2903651073) 6.2 g/dL 6.3-8.2 L ALBUMIN (test code = 1391688517) 3.5 g/dL 3.5-5.0 ALK PHOS (test code = 0187257461) 274 U/L 34-122 H ALTv (test code = 1742-6) 176 U/L 5-35 H AST(SGOT) (test code = 6318344277) 40 U/L 13-40 Lab Interpretation (test cod e = 94034-7) [facility] (93306[facility] (ALB,T.PRO,BILI T,BU/BC,ALT,AST,ALK PHOS)2023-11-23 17:45:02* Test Item Value Reference Range Interpretation Comme nts TOTAL BILI (test code = 0431476581) 0.7 mg/dL 0.1-1.1 BILI UNCON (test code = 0984942169) 0.1 mg/dL 0.1-1.1 BILI CONJ (test code = 7572635940) 0.0 mg/dL 0.0-0.3 T PROTEIN (test code = 7440341544) 6.2 g/dL 6.3-8.2 L ALBUMIN (test code = 8356002459) 3.5 g/dL 3.5-5.0 ALK PHOS (test code = 0129121014) 274 U/L 34-122 H ALTv (test code = 1742-6) 176 U/L 5-35 H AST(SGOT) (test code = 3473360681) 40 U/L 13-40 Lab Interpretation (test cod e = 86509-7) Abnormal [facility] GLUCOSE (AUTOMATED)2023-11-23 17:19:25* Test Item Value Reference Range Interpretation Comme nts POCT GLU (test code = 4926129643) 137 mg/dL 70-110 H Lab Interpretation (test cod e = 15237-3) Abnormal [facility] GLUCOSE (AUTOMATED)2023-11-23 17:19:25* Test Item Value Reference Range Interpretation Comme nts POCT GLU (test code = 8008259503) 137 mg/dL 70-110 H Lab Interpretation (test cod e = 85024-8) Abnormal [facility] GLUCOSE (AUTOMATED)2023-11-23 17:19:25* Test Item Value Reference Range Interpretation Comme nts POCT GLU (test code = 2708649176) 137 mg/dL 70-110 H Lab Interpretation (test cod e = 42885-7) Abnormal [facility] GLUCOSE (AUTOMATED)2023-11-23 16:51:25* Test Item Value Reference Range Interpretation Comme nts POCT GLU (test code = 1163945148) 145 mg/dL 70-110 H Lab Interpretation (test cod e = 67441-9) Abnormal [facility] GLUCOSE (AUTOMATED)2023-11-23 16:51:25* Test Item Value Reference Range Interpretation Comme nts POCT GLU (test code = 0685237852) 145 mg/dL 70-110 H Lab Interpretation (test cod e = 32683-5) [facility]23-[facility]-23 16:51:25* Test Item Value Reference Range Interpretation Comme nts POCT GLU (test code = 7543025527) 145 mg/dL 70-110 H Lab Interpretation (test cod e = 39492-4) [facility]2023-11-23 15:36:08* Test Item Value Reference Range Interpretation Comme nts APTT Patient (test code = 3173-2) 44 26-36 H Lab Interpretation (test cod e = 80509-1) [facility]2023-11-23 15:36:08* Test Item Value Reference Range Interpretation Comme nts APTT Patient (test code = 3173-2) 44 26-36 H Lab Interpretation (test cod e = 82088-4) [facility]2023-11-23 15:36:08* Test Item Value Reference Range Interpretation Comme nts APTT Patient (test code = 3173-2) 44 26-36 H Lab Interpretation (test cod e = 09790-9) [facility]normal [facility] Whole Fbbht5388-18-92 15:21:35* Test Item Value Reference Range Interpretation Comme nts LACTIC ACID (test code = 2262302644) 4.80 mmol/L 0.50-2.20 H Lab Interpretation (test cod e = 76811-0) [facility]normal [facility] Djzin6670-99-89 15:21:35* Test Item Value Reference Range Interpretation Comme nts LACTIC ACID (test code = 0374692032) 4.80 mmol/L 0.50-2.20 H Lab Interpretation (test cod e = 60993-6) [facility]normal [facility] Dnrmb7117-18-89 15:21:35* Test Item Value Reference Range Interpretation Comme nts LACTIC ACID (test code = 7468009966) 4.80 mmol/L 0.50-2.20 H Lab Interpretation (test cod e = 95072-1) Abnormal [facility] GLUCOSE (AUTOMATED)2023-11-23 12:49:15* Test Item Value Reference Range Interpretation Comme nts POCT GLU (test code = 2161639351) 162 mg/dL 70-110 H Lab Interpretation (test cod e = 34011-0) Abnormal [facility] GLUCOSE (AUTOMATED)2023-11-23 12:49:15* Test Item Value Reference Range Interpretation Comme nts POCT GLU (test code = 4841554860) 162 mg/dL 70-110 H Lab Interpretation (test cod e = 00477-1) Abnormal [facility] GLUCOSE (AUTOMATED)2023-11-23 12:49:15* Test Item Value Reference Range Interpretation Comme nts POCT GLU (test code = 2395711866) 162 mg/dL 70-110 H Lab Interpretation (test cod e = 57383-7) [facility]normal [facility]esium2024-[facility] 08:44:42* Test Item Value Reference Range Interpretation Comme nts MAGNESIUM (test code = 7389948162) 1.9 mg/dL 1.7-2.4 Lab Interpretation (test cod e = 29578-3) Normal [facility] Metabolic Panel (NA, K, CL, CO2, GLUCOSE, BUN, CREATININE, CA)2023-11-23 08:44:42* Test Item Value Reference Range Interpretation Comme nts NA (test code = 9907959696) 136 mmol/L 135-145 K (test code = 4659223905) 3.7 mmol/L 3.5-5.0 CL (test code = 5371377092) 99 mmol/L 98-108 CO2 TOTAL (test code = 6573916060) 31 mmol/L 23-31 AGAP (test code = 8132635389) 6 2-16 BUN (test code = 3475238806) 20 mg/dL 7-23 GLUCOSE (test code = 8477937442) 184 mg/dL 70-110 H CREATININE (test code = 2160-0) 0.66 mg/dL 0.50-1.04 CALCIUM (test code = 9006195046) 7.9 mg/dL 8.6-10.6 L eGFR (test code = 50601-2) 106.4 mL/min/1.73m2 CKD-EPI eGFR (2020). Assuming creatinine has been stable day-to-day for at least three months, the eGFR indicates Category G1 (>= 90 mL/min/1.73 m2) Lab Interpretation (test code = 20360-8) Abnormal [facility]2024-05-06 08:44:42* Test Item Value Reference Range Interpretation Comme nts MAGNESIUM (test code = 3914036905) 1.9 mg/dL 1.7-2.4 Lab Interpretation (test cod e = 65539-8) Normal [facility] Metabolic Panel (NA, K, CL, CO2, GLUCOSE, BUN, CREATININE, CA)2023-11-23 08:44:42* Test Item Value Reference Range Interpretation Comme nts NA (test code = 8736789535) 136 mmol/L 135-145 K (test code = 2592916354) 3.7 mmol/L 3.5-5.0 CL (test code = 7905222915) 99 mmol/L 98-108 CO2 TOTAL (test code = 0570382063) 31 mmol/L 23-31 AGAP (test code = 8310887827) 6 2-16 BUN (test code = 6564278363) 20 mg/dL 7-23 GLUCOSE (test code = 0260200577) 184 mg/dL 70-110 H CREATININE (test code = 2160-0) 0.66 mg/dL 0.50-1.04 CALCIUM (test code = 0102301062) 7.9 mg/dL 8.6-10.6 L eGFR (test code = 72230-9) 106.4 mL/min/1.73m2 CKD-EPI eGFR (2020). Assuming creatinine has been stable day-to-day for at least three months, the eGFR indicates Category G1 (>= 90 mL/min/1.73 m2) Lab Interpretation (test code = 49267-5) Abnormal [facility]2024-05-06 08:44:42* Test Item Value Reference Range Interpretation Comme nts MAGNESIUM (test code = 5658075859) 1.9 mg/dL 1.7-2.4 Lab Interpretation (test cod e = 22475-1) Normal [facility] Metabolic Panel (NA, K, CL, CO2, GLUCOSE, BUN, CREATININE, CA)2023-11-23 08:44:42* Test Item Value Reference Range Interpretation Comme [facility] NA (test code = 5625594333) 136 mmol/L 135-145 K (test code = 4512580287) 3.7 mmol/L 3.5-5.0 CL (test code = 3101524781) 99 mmol/L 98-108 CO2 TOTAL (test code = 6619732619) 31 mmol/L 23-31 AGAP (test code = 8638196756) 6 2-16 BUN (test code = 2100088073) 20 mg/dL 7-23 GLUCOSE (test code = 1402383324) 184 mg/dL 70-110 H CREATININE (test code = 2160-0) 0.66 mg/dL 0.50-1.04 CALCIUM (test code = 1518329460) 7.9 mg/dL 8.6-10.6 L eGFR (test code = 61847-5) 106.4 mL/min/1.73m2 CKD-EPI eGFR (2020). Assuming creatinine has been stable day-to-day for at least three months, the eGFR indicates Category G1 (>= 90 mL/min/1.73 m2) Lab Interpretation (test code = 62107-1) Abnormal [facility] (for use with Heparin Infusion)2023-11-23 08:29:39* Test Item Value Reference Range Interpretation Comme [facility] APTT Patient (test code = 3173-2) 49 26-36 H Lab Interpretation (test cod e = 49799-9) Abnormal [facility] (for use with Heparin Infusion)2023-11-23 08:29:39* Test Item Value Reference Range Interpretation Comme [facility] APTT Patient (test code = 3173-2) 49 26-36 H Lab Interpretation (test cod e = 94351-3) Abnormal [facility] (for use with Heparin Infusion)2023-11-23 08:29:39* Test Item Value Reference Range Interpretation Comme [facility] APTT Patient (test code = 3173-2) 49 26-36 H Lab Interpretation (test cod e = 59191-6) Abnormal [facility] with Iseb2406-08-52 08:24:03* Test Item Value Reference Range Interpretation [...] g/dL 31.6-35.1 L RDW-SD (test code = 13161-2) 66.0 fL 39.0-49.9 H RDW-CV (test code = 788-0) 22.5 % 12.0-15.5 H PLT (test code = 777-3) 204 166-358 MPV (test code = 09923-5) 9.8 fL 9.5-12.9 NRBC/100 WBC (test code = 0870994673) 2.4 0.0-10.0 NRBC x10^3 (test code = 9165620900) 0.17 See_Comment [Automated messa ge] The system which generated this result transmitted reference range: 10*3/?L. The reference range was not used to interpret this result as normal/abnormal. GRAN MAT (NEUT) % (test code = 770-8) 80.3 % IMM GRAN % (test code = 3696814707) 1.70 % LYMPH % (test code = 736-9) 9.5 % MONO % (test code = 5905-5) 8.5 % EOS % (test code = 713-8) 0.0 % BASO % (test code = 706-2) 0.0 % GRAN MAT x10^3(ANC) (test code = 2252030560) 5.77 10*3/uL 1.88-7.09 IMM GRAN x10^3 (test code = 1937376944) 0.12 10*3/uL 0.00-0.06 H LYMPH x10^3 (test code = 731-0) 0.68 10*3/uL 1.32-3.29 L MONO x10^3 (test code = 742-7) 0.61 10*3/uL 0.33-0.92 EOS x10^3 (test code = 711-2) 0.03-0.39 L BASO x10^3 (test code = 704-7) 0.01-0.07 Lab Interpretation (test code = 97430-0) Abnormal [facility] with Ceqy2926-71-37 08:24:03* Test Item Value Reference Range Interpretation [...] g/dL 31.6-35.1 L RDW-SD (test code = 97627-6) 66.0 fL 39.0-49.9 H RDW-CV (test code = 788-0) 22.5 % 12.0-15.5 H PLT (test code = 777-3) 204 166-358 MPV (test code = 88376-0) 9.8 fL 9.5-12.9 NRBC/100 WBC (test code = 8313141842) 2.4 0.0-10.0 NRBC x10^3 (test code = 4012460800) 0.17 See_Comment [Automated messa ge] The system which generated this result transmitted reference range: 10*3/?L. The reference range was not used to interpret this result as normal/abnormal. GRAN MAT (NEUT) % (test code = 770-8) 80.3 % IMM GRAN % (test code = 3081628479) 1.70 % LYMPH % (test code = 736-9) 9.5 % MONO % (test code = 5905-5) 8.5 % EOS % (test code = 713-8) 0.0 % BASO % (test code = 706-2) 0.0 % GRAN MAT x10^3(ANC) (test code = 4845192342) 5.77 10*3/uL 1.88-7.09 IMM GRAN x10^3 (test code = 8125259008) 0.12 10*3/uL 0.00-0.06 H LYMPH x10^3 (test code = 731-0) 0.68 10*3/uL 1.32-3.29 L MONO x10^3 (test code = 742-7) 0.61 10*3/uL 0.33-0.92 EOS x10^3 (test code = 711-2) 0.03-0.39 L BASO x10^3 (test code = 704-7) 0.01-0.07 Lab Interpretation (test code = 41509-9) [facility] Kumo3143-45-53 08:24:03* Test Item Value Reference Range Interpretation [...] g/dL 31.6-35.1 L RDW-SD (test code = 19152-2) 66.0 fL 39.0-49.9 H RDW-CV (test code = 788-0) 22.5 % 12.0-15.5 H PLT (test code = 777-3) 204 166-358 MPV (test code = 70825-1) 9.8 fL 9.5-12.9 NRBC/100 WBC (test code = 0610499719) 2.4 0.0-10.0 NRBC x10^3 (test code = 0793655283) 0.17 See_Comment [Automated messa ge] The system which generated this result transmitted reference range: 10*3/?L. The reference range was not used to interpret this result as normal/abnormal. GRAN MAT (NEUT) % (test code = 770-8) 80.3 % IMM GRAN % (test code = 9336940798) 1.70 % LYMPH % (test code = 736-9) 9.5 % MONO % (test code = 5905-5) 8.5 % EOS % (test code = 713-8) 0.0 % BASO % (test code = 706-2) 0.0 % GRAN MAT x10^3(ANC) (test code = 7550600911) 5.77 10*3/uL 1.88-7.09 IMM GRAN x10^3 (test code = 1224483037) 0.12 10*3/uL 0.00-0.06 H LYMPH x10^3 (test code = 731-0) 0.68 10*3/uL 1.32-3.29 L MONO x10^3 (test code = 742-7) 0.61 10*3/uL 0.33-0.92 EOS x10^3 (test code = 711-2) 0.03-0.39 L BASO x10^3 (test code = 704-7) 0.01-0.07 Lab Interpretation (test code = 79869-3) [facility] Yqtmk6108-04-22 08:04:10* Test Item Value Reference Range Interpretation Comme nts LACTIC ACID (test code = 7349228443) 4.15 mmol/L 0.50-2.20 H Lab Interpretation (test cod e = 75632-7) [facility]normal [facility] Ghkie6100-06-87 08:04:10* Test Item Value Reference Range Interpretation Comme nts LACTIC ACID (test code = 5520224342) 4.15 mmol/L 0.50-2.20 H Lab Interpretation (test cod e = 93115-6) [facility] Mywvp7331-44-81 08:04:10* Test Item Value Reference Range Interpretation Comme nts LACTIC ACID (test code = 1727128640) 4.15 mmol/L 0.50-2.20 H Lab Interpretation (test cod e = 38028-2) [facility] Rjryo2497-70-22 05:11:29* Test Item Value Reference Range Interpretation Comme nts LACTIC ACID (test code = 3188362571) 4.23 mmol/L 0.50-2.20 H Lab Interpretation (test cod e = 58444-1) [facility] Qvvts3304-23-44 05:11:29* Test Item Value Reference Range Interpretation Comme nts LACTIC ACID (test code = 9293361253) 4.23 mmol/L 0.50-2.20 H Lab Interpretation (test cod e = 57373-4) [facility]normal [facility] Ezhzi5126-22-98 05:11:29* Test Item Value Reference Range Interpretation Comme nts LACTIC ACID (test code = 2759966795) 4.23 mmol/L 0.50-2.20 H Lab Interpretation (test cod e = 88126-4) [facility]normal [facility] Urxum0898-24-93 03:16:26* Test Item Value Reference Range Interpretation Comme nts LACTIC ACID (test code = 7129176521) 3.66 mmol/L 0.50-2.20 H Lab Interpretation (test cod e = 13136-7) [facility] Oqrig4412-35-06 03:16:26* Test Item Value Reference Range Interpretation Comme nts LACTIC ACID (test code = 0895124590) 3.66 mmol/L 0.50-2.20 H Lab Interpretation (test cod e = 09898-4) [facility] Szbuy7113-68-23 03:16:26* Test Item Value Reference Range Interpretation Comme nts LACTIC ACID (test code = 8889207811) 3.66 mmol/L 0.50-2.20 H Lab Interpretation (test cod e = 61511-0) [facility] Fglpq9479-84-91 01:21:56* Test Item Value Reference Range Interpretation Comme nts LACTIC ACID (test code = 1183206916) 3.68 mmol/L 0.50-2.20 H Lab Interpretation (test cod e = 28874-7) [facility]normal [facility] Sqlbl7260-49-10 01:21:56* Test Item Value Reference Range Interpretation Comme nts LACTIC ACID (test code = 4024499290) 3.68 mmol/L 0.50-2.20 H Lab Interpretation (test cod e = 62699-2) [facility] Wtift0630-58-12 01:21:56* Test Item Value Reference Range Interpretation Comme nts LACTIC ACID (test code = 1399226336) 3.68 mmol/L 0.50-2.20 H Lab Interpretation (test cod e = 73280-1) Abnormal [facility] GLUCOSE (AUTOMATED)2023-11-23 01:07:13* Test Item Value Reference Range Interpretation Comme nts POCT GLU (test code = 3971739375) 193 mg/dL 70-110 H Lab Interpretation (test cod e = 75096-5) Abnormal [facility] GLUCOSE (AUTOMATED)2023-11-23 01:07:13* Test Item Value Reference Range Interpretation Comme nts POCT GLU (test code = 1276738389) 193 mg/dL 70-110 H Lab Interpretation (test cod e = 87324-2) Abnormal [facility] GLUCOSE (AUTOMATED)2023-11-23 01:07:13* Test Item Value Reference Range Interpretation Comme nts POCT GLU (test code = 6146484004) 193 mg/dL 70-110 H Lab Interpretation (test cod e = 73296-7) [facility] Gatgq9861-54-45 23:56:10* Test Item Value Reference Range Interpretation Comme nts LACTIC ACID (test code = 4283259527) 3.82 mmol/L 0.50-2.20 H Lab Interpretation (test cod e = 89740-0) [facility] Vruxz1624-73-00 23:56:10* Test Item Value Reference Range Interpretation Comme nts LACTIC ACID (test code = 5827692723) 3.82 mmol/L 0.50-2.20 H Lab Interpretation (test cod e = 82232-5) [facility] Nzlcb1794-31-73 23:56:10* Test Item Value Reference Range Interpretation Comme nts LACTIC ACID (test code = 3266256410) 3.82 mmol/L 0.50-2.20 H Lab Interpretation (test cod e = 64219-7) Abnormal [facility] GLUCOSE (AUTOMATED)2023-11-22 22:00:27* Test Item Value Reference Range Interpretation Comme nts POCT GLU (test code = 4066570127) 218 mg/dL 70-110 H Lab Interpretation (test cod e = 26014-6) Abnormal [facility] GLUCOSE (AUTOMATED)2023-11-22 22:00:27* Test Item Value Reference Range Interpretation Comme nts POCT GLU (test code = 3548649602) 218 mg/dL 70-110 H Lab Interpretation (test cod e = 86875-4) Abnormal [facility] GLUCOSE (AUTOMATED)2023-11-22 22:00:27* Test Item Value Reference Range Interpretation Comme nts POCT GLU (test code = 8969264403) 218 mg/dL 70-110 H Lab Interpretation (test cod e = 82389-3) [facility] Sicob5405-93-69 21:49:39* Test Item Value Reference Range Interpretation Comme nts LACTIC ACID (test code = 9054328686) 4.40 mmol/L 0.50-2.20 H Lab Interpretation (test cod e = 91937-4) [facility] Ivtcr3392-36-41 21:49:39* Test Item Value Reference Range Interpretation Comme nts LACTIC ACID (test code = 8568984912) 4.40 mmol/L 0.50-2.20 H Lab Interpretation (test cod e = 45631-0) [facility] Kjixo3074-87-75 21:49:39* Test Item Value Reference Range Interpretation Comme nts LACTIC ACID (test code = 5619105680) 4.40 mmol/L 0.50-2.20 H Lab Interpretation (test cod e = 23600-3) Abnormal [facility] GLUCOSE (AUTOMATED)2023-11-22 21:02:20* Test Item Value Reference Range Interpretation Comme nts POCT GLU (test code = 3406603368) 208 mg/dL 70-110 H Lab Interpretation (test cod e = 40164-4) Abnormal [facility] GLUCOSE (AUTOMATED)2023-11-22 21:02:20* Test Item Value Reference Range Interpretation Comme nts POCT GLU (test code = 6649056254) 208 mg/dL 70-110 H Lab Interpretation (test cod e = 89428-8) Abnormal [facility] GLUCOSE (AUTOMATED)2023-11-22 21:02:20* Test Item Value Reference Range Interpretation Comme nts POCT GLU (test code = 8499918002) 208 mg/dL 70-110 H Lab Interpretation (test cod e = 81745-2) [facility]normal [facility]ama[facility] Whole Krenm2387-67-01 20:01:46* Test Item Value Reference Range Interpretation Comme nts LACTIC ACID (test code = 8922626908) 6.14 mmol/L 0.50-2.20 H Lab Interpretation (test cod e = 60610-9) [facility]normal [facility] Riegd0737-01-58 20:01:46* Test Item Value Reference Range Interpretation Comme nts LACTIC ACID (test code = 9263943653) 6.14 mmol/L 0.50-2.20 H Lab Interpretation (test cod e = 04817-6) [facility]normal [facility] Jwkwf0489-55-69 20:01:46* Test Item Value Reference Range Interpretation Comme nts LACTIC ACID (test code = 0162438098) 6.14 mmol/L 0.50-2.20 H Lab Interpretation (test cod e = 27412-7) [facility]normal [facility] MMBZIMS1694-17-25 18:29:14 Procedure: ? RIGHT UPPER QUADRANT ULTRASOUND [...] are sonographically unremarkable inappearance. ?No evidence to ascites.[facility] 2023-11-22 18:29:14Procedure: ? RIGHT UPPER [...] are sonographically unremarkable inappearance. ?No evidence to ascites.[facility] Transthoracic echo (TTE)2023-11-22 18:16:22* Test Item Value Reference Range Interpretation Comme nts Height (test code = 7024546640) 63 in Weight (test code = 4021687164) 208 lbs Systolic BP (test code = 7842650826) 146 mmHg Diastolic BP (test code = 0866562773) 103 mmHg Heart Rate (test code = 6682363306) 112 bpm BSA (test code = 2201385708) 1.97 m2 LVOT diameter (test code = 0736316341) 2.5 cm LVOT area (test code = 0486650325) 5.00 cm2 LA size (test code = 9140569417) 4.2 cm MV Peak E Evette (test code = 2597560567) 128.5 cm/s MV Peak A Evette (test code = 4699612208) 62.4 cm/s E/A ratio (test code = 6734546509) 2.06 ratio E wave decelartion time (test code = 1668715271) 0.12 s MV Prop V (test code = 2124391194) 38.00 cm/s LAV(MOD-sp4) (test code = 7694203866) 68.70 mL Tapse (test code = 5642720329) 0.7 cm LA Volume Index (BP) (test code = 4207847761) 34.6 mL/m2 LA volume (BP) (test code = 3817192129) 68.0 mL LAV(MOD-sp2) (test code = 0937757591) 66.30 mL Ao peak evette (test code = 1405619589) 124.9 cm/s Ao max PG (test code = 1267568214) 6.20 mm[Hg] AV peak gradient (test code = 8340300668) 6.2 mmHg LVOT stroke volume (test code = 8492756173) 42.40 cm3 LVOT peak evette (test code = 5165514497) 67.8 cm/s LVOT mn grad (test code = 3164953514) 0.9 mmHg AV LVOT peak gradient (test code = 4091444941) 1.84 mmHg LVOT peak VTI (test code = 3921927590) 8.4 cm AV area peak evette (test code = 0554095666) 2.7 cm2 LV V1 mean (test code = 9218361195) 43.20 cm/s TR Peak Evette (test code = 6542447312) 247.7 cm/s Triscuspid Valve Regurgitation Peak Gradient (test code = 6375854767) 24.5 mmHg MR max PG (test code = 4447487874) 85.20 mm[Hg] MR max evette (test code = 2962846586) 461.50 cm/s Mr max evette (test code = 4556152035) 461.5 m/s AV regurgitation pressure 1/2 time (test code = 4417504657) 305.5 ms AI dec slope (test code = 6941118482) 432.10 cm/s2 AI max evette (test code = 6105294059) 450.60 cm/s AI max PG (test code = 1613049542) 81.20 mm[Hg] LVIDD (test code = 3113748722) 5.00 cm Left Ventricular End Diastolic Volume by Teichholz Method (test code = 9337956) 116.6 mL IVS (test code = 0153084997) 0.93 cm Interventricular Septum Diastolic Thickness by 2D (test code = 1238349) 0.93 cm LVPWD (test code = 2229283467) 1.00 cm PW (test code = 5316213677) 1.00 cm 0.6-1.1 EF(Teich) (test code = 0466467306) 33.90 % LVIDS (test code = 6715577589) 4.20 cm Left Ventricular End Systolic Volume by Teichholz Method (test code = 5174888) 77.1 mL FS (test code = 2539836137) 16 % EF - 2D (test code = 14597276) 33.90 % Radiology Study observation (narrative) (test code = 01805-1) LYNDSAY (test code = LYNDSAY) ?Left?Ventricle: Left [...] mL of Definity ultrasound enhancing agent used. [facility]16:[facility]* Test Item Value Reference Range Interpretation Comme nts Height (test code = 5409584710) 63 in Weight (test code = 1170036208) 208 lbs Systolic BP (test code = 2235942165) 146 mmHg Diastolic BP (test code = 7463628224) 103 mmHg Heart Rate (test code = 4274788467) 112 bpm BSA (test code = 7030279388) 1.97 m2 LVOT diameter (test code = 8109614808) 2.5 cm LVOT area (test code = 7899994979) 5.00 cm2 LA size (test code = 8484637153) 4.2 cm MV Peak E Evette (test code = 6002792505) 128.5 cm/s MV Peak A Evette (test code = 4726693488) 62.4 cm/s E/A ratio (test code = 5813346741) 2.06 ratio E wave decelartion time (test code = 5796053383) 0.12 s MV Prop V (test code = 6982003892) 38.00 cm/s LAV(MOD-sp4) (test code = 1900192683) 68.70 mL Tapse (test code = 8289422959) 0.7 cm LA Volume Index (BP) (test code = 9448369821) 34.6 mL/m2 LA volume (BP) (test code = 1275566683) 68.0 mL LAV(MOD-sp2) (test code = 7283478736) 66.30 mL Ao peak evette (test code = 5321660743) 124.9 cm/s Ao max PG (test code = 6519906996) 6.20 mm[Hg] AV peak gradient (test code = 9327807507) 6.2 mmHg LVOT stroke volume (test code = 7522927341) 42.40 cm3 LVOT peak evette (test code = 8928140880) 67.8 cm/s LVOT mn grad (test code = 1142022667) 0.9 mmHg AV LVOT peak gradient (test code = 7157769289) 1.84 mmHg LVOT peak VTI (test code = 4021715649) 8.4 cm AV area peak evette (test code = 1876061283) 2.7 cm2 LV V1 mean (test code = 2345746639) 43.20 cm/s TR Peak Evette (test code = 2522965695) 247.7 cm/s Triscuspid Valve Regurgitation Peak Gradient (test code = 2766098379) 24.5 mmHg MR max PG (test code = 2258922474) 85.20 mm[Hg] MR max evette (test code = 5204089348) 461.50 cm/s Mr max evette (test code = 6250990486) 461.5 m/s AV regurgitation pressure 1/2 time (test code = 5410854659) 305.5 ms AI dec slope (test code = 3754286993) 432.10 cm/s2 AI max evette (test code = 6895226247) 450.60 cm/s AI max PG (test code = 7954664424) 81.20 mm[Hg] LVIDD (test code = 4467499091) 5.00 cm Left Ventricular End Diastolic Volume by Teichholz Method (test code = 1263620) 116.6 mL IVS (test code = 0737004551) 0.93 cm Interventricular Septum Diastolic Thickness by 2D (test code = 7071974) 0.93 cm LVPWD (test code = 6286628243) 1.00 cm PW (test code = 0699236713) 1.00 cm 0.6-1.1 EF(Teich) (test code = 1836795481) 33.90 % LVIDS (test code = 7561919283) 4.20 cm Left Ventricular End Systolic Volume by Teichholz Method (test code = 4802710) 77.1 mL FS (test code = 3133250635) 16 % EF - 2D (test code = 30964583) 33.90 % Radiology Study observation (narrative) (test code = 04110-4) LYNDSAY (test code = LYNDSAY) ?Left?Ventricle: Left [...] mL of Definity ultrasound enhancing agent used. [facility] Acid Whole Frxyw8738-00-63 17:29:30* Test Item Value Reference Range Interpretation Comme nts LACTIC ACID (test code = 6593189886) 4.00 mmol/L 0.50-2.20 H QUES Lab Interpretation (test cod e = 34622-6) Abnormal [facility] Acid Whole Rdvdn8663-97-62 17:29:30* Test Item Value Reference Range Interpretation Comme nts LACTIC ACID (test code = 4629741509) 4.00 mmol/L 0.50-2.20 H QUES Lab Interpretation (test cod e = 37920-4) Abnormal [facility] Acid Whole [id number] 17:29:30* Test Item Value Reference Range Interpretation Comme nts LACTIC ACID (test code = 6988294148) 4.00 mmol/L 0.50-2.20 H QUES Lab Interpretation (test cod e = 03552-0) Abnormal [facility] GLUCOSE (AUTOMATED)2023-11-22 17:01:27* Test Item Value Reference Range Interpretation Comme nts POCT GLU (test code = 9760547068) 152 mg/dL 70-110 H Notified Provide r Lab Interpretation (test code = 97252-4) Abnormal [facility] GLUCOSE (AUTOMATED)2023-11-22 17:01:27* Test Item Value Reference Range Interpretation Comme nts POCT GLU (test code = 3322711529) 152 mg/dL 70-110 H Notified Provide r Lab Interpretation (test code = 82723-3) Abnormal [facility] GLUCOSE (AUTOMATED)2023-11-22 17:01:27* Test Item Value Reference Range Interpretation Comme nts POCT GLU (test code = 0671288697) 152 mg/dL 70-110 H Notified Provide r Lab Interpretation (test code = 34744-0) [facility] Tmulx8767-[facility]-18 16:28:02* Test Item Value Reference Range Interpretation Comme nts IRON (test code = 7365035160) 44 ug/dL 50-160 L TIBC (test code = 2208227090) 395 ug/dL 250-410 % FE SAT (test code = 6083943766) 11 % 20-50 L Lab Interpretation (test cod e = 92430-7) Abnormal [facility] Vizrw3449-11-84 16:28:02* Test Item Value Reference Range Interpretation Comme nts IRON (test code = 2009256731) 44 ug/dL 50-160 L TIBC (test code = 1991580420) 395 ug/dL 250-410 % FE SAT (test code = 3449054776) 11 % 20-50 L Lab Interpretation (test cod e = 80332-0) Abnormal [facility] Lypeh0346-58-79 16:28:02* Test Item Value Reference Range Interpretation Comme nts IRON (test code = 0867043565) 44 ug/dL 50-160 L TIBC (test code = 2356238509) 395 ug/dL 250-410 % FE SAT (test code = 4251536025) 11 % 20-50 L Lab Interpretation (test cod e = 97507-8) Abnormal [facility]. Metabolic Panel (99863)2023-11-22 16:20:58* Test Item Value Reference Range Interpretation Comme nts NA (test code = 2478313090) 135 mmol/L 135-145 K (test code = 9093153825) 4.0 mmol/L 3.5-5.0 Slight hemolysis CL (test code = 2895201240) 108 mmol/L 98-108 CO2 TOTAL (test code = 6382980693) 20 mmol/L 23-31 L AGAP (test code = 0951441376) 7 2-16 BUN (test code = 2954642017) 20 mg/dL 7-23 Slight hemolysis GLUCOSE (test code = 3289981829) 136 mg/dL 70-110 H CREATININE (test code = 2160-0) 0.48 mg/dL 0.50-1.04 L TOTAL BILI (test code = 3440254556) 0.8 mg/dL 0.1-1.1 CALCIUM (test code = 7976888109) 6.7 mg/dL 8.6-10.6 L T PROTEIN (test code = 9002439407) 5.6 g/dL 6.3-8.2 L ALBUMIN (test code = 9823857947) 3.1 g/dL 3.5-5.0 L ALK PHOS (test code = 0608260110) 282 U/L 34-122 H Slight hemolysis ALTv (test code = 1742-6) 196 U/L 5-35 H AST(SGOT) (test code = 8778568182) 56 U/L 13-40 H Slight hemolysis eGFR (test code = 15908-9) 114.8 mL/min/1.73m2 CKD-EPI eGFR (2020). Assuming creatinine has been stable day-to-day for at least three months, the eGFR indicates Category G1 (>= 90 mL/min/1.73 m2) Lab Interpretation (test code = 93354-5) Abnormal [facility]. Metabolic Panel (81833)2023-11-22 16:20:58* Test Item Value Reference Range Interpretation Comme nts NA (test code = 9758317280) 135 mmol/L 135-145 K (test code = 7232598405) 4.0 mmol/L 3.5-5.0 Slight hemolysis CL (test code = 9875997340) 108 mmol/L 98-108 CO2 TOTAL (test code = 5100258896) 20 mmol/L 23-31 L AGAP (test code = 6935407909) 7 2-16 BUN (test code = 7404918611) 20 mg/dL 7-23 Slight hemolysis GLUCOSE (test code = 9652702819) 136 mg/dL 70-110 H CREATININE (test code = 2160-0) 0.48 mg/dL 0.50-1.04 L TOTAL BILI (test code = 4689374646) 0.8 mg/dL 0.1-1.1 CALCIUM (test code = 2188301993) 6.7 mg/dL 8.6-10.6 L T PROTEIN (test code = 0469479208) 5.6 g/dL 6.3-8.2 L ALBUMIN (test code = 5419359601) 3.1 g/dL 3.5-5.0 L ALK PHOS (test code = 3835475222) 282 U/L 34-122 H Slight hemolysis ALTv (test code = 1742-6) 196 U/L 5-35 H AST(SGOT) (test code = 2848836472) 56 U/L 13-40 H Slight hemolysis eGFR (test code = 79130-6) 114.8 mL/min/1.73m2 CKD-EPI eGFR (2020). Assuming creatinine has been stable day-to-day for at least three months, the eGFR indicates Category G1 (>= 90 mL/min/1.73 m2) Lab Interpretation (test code = 89743-9) Abnormal [facility]. Metabolic Panel (79522)2023-11-22 16:20:58* Test Item Value Reference Range Interpretation Comme nts NA (test code = 1700899824) 135 mmol/L 135-145 K (test code = 5916486423) 4.0 mmol/L 3.5-5.0 Slight hemolysis CL (test code = 9370093557) 108 mmol/L 98-108 CO2 TOTAL (test code = 4838437439) 20 mmol/L 23-31 L AGAP (test code = 3706553454) 7 2-16 BUN (test code = 4455314791) 20 mg/dL 7-23 Slight hemolysis GLUCOSE (test code = 8832710992) 136 mg/dL 70-110 H CREATININE (test code = 2160-0) 0.48 mg/dL 0.50-1.04 L TOTAL BILI (test code = 3045679544) 0.8 mg/dL 0.1-1.1 CALCIUM (test code = 0512243903) 6.7 mg/dL 8.6-10.6 L T PROTEIN (test code = 2720729995) 5.6 g/dL 6.3-8.2 L ALBUMIN (test code = 3994366020) 3.1 g/dL 3.5-5.0 L ALK PHOS (test code = 1035817980) 282 U/L 34-122 H Slight hemolysis ALTv (test code = 1742-6) 196 U/L 5-35 H AST(SGOT) (test code = 3846292404) 56 U/L 13-40 H Slight hemolysis eGFR (test code = 28988-5) 114.8 mL/min/1.73m2 CKD-EPI eGFR (2020). Assuming creatinine has been stable day-to-day for at least three months, the eGFR indicates Category G1 (>= 90 mL/min/1.73 m2) Lab Interpretation (test code = 37975-4) [facility] [id number] 15:51:03PROCEDURE: CT ANGIO CHEST WITH CONTRAST - [...] cholecystectomy. A left adrenal 2.7cm nodule suspected. [facility] HNFZLDAQX7953-12-54 15:51:03PROCEDURE: CT ANGIO CHEST WITH CONTRAST - [...] cholecystectomy. A left adrenal 2.7cm nodule [facility]. [facility] Ibwns5013-57-27 14:33:11* Test Item Value Reference Range Interpretation Comme nts LACTIC ACID (test code = 1606962333) 4.04 mmol/L 0.50-2.20 H QUES Lab Interpretation (test cod e = 69681-0) [facility] Qwfub0553-40-27 14:33:11* Test Item Value Reference Range Interpretation Comme nts LACTIC ACID (test code = 9522553757) 4.04 mmol/L 0.50-2.20 H QUES Lab Interpretation (test cod e = 47460-6) [facility] Tvuuf3416-37-48 14:33:11* Test Item Value Reference Range Interpretation Comme nts LACTIC ACID (test code = 1909299011) 4.04 mmol/L 0.50-2.20 H QUES Lab Interpretation (test cod e = 29559-0) Abnormal [facility] GLUCOSE (AUTOMATED)2023-11-22 13:26:51* Test Item Value Reference Range Interpretation Comme nts POCT GLU (test code = 8230783494) 180 mg/dL 70-110 H Notified Provide r Lab Interpretation (test code = 17908-3) Abnormal [facility] GLUCOSE (AUTOMATED)2023-11-22 13:26:51* Test Item Value Reference Range Interpretation Comme nts POCT GLU (test code = 5748993748) 180 mg/dL 70-110 H Notified Provide r Lab Interpretation (test code = 44779-1) Abnormal [facility] GLUCOSE (AUTOMATED)2023-11-22 13:26:51* Test Item Value Reference Range Interpretation Comme nts POCT GLU (test code = 8726893676) 180 mg/dL 70-110 H Notified Provide r Lab Interpretation (test code = 76762-3) [facility]normal [facility]+ VW [id number] 09:05:30 Exam: XR SHOULDER 2+ VW RIGHT, 11/22/2023 1:45 AM. Ordering Physician: IVIS MCDERMOTT. History: R arm injury . Technique: Routine view(s) XR SHOULDER 2+ VW RIGHT. Comparison: None. Findings: No evidence of traumatic malalignment. No acute fracture. 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 Eburnation of thegreater tuberosity, sequela of chronic rotator cuff injury. No focalsofttissue swelling. Lungs are clear as visualized. Cervical fusion. [facility] VW [id number] 09:05:30 Exam: XR SHOULDER 2+ VW RIGHT, 11/22/2023 1:45 AM. Ordering Physician: IVIS MCDERMOTT. History: R arm injury . Technique: Routine view(s) XR SHOULDER 2+ VW RIGHT. Comparison: None. Findings: No evidence of traumatic malalignment. No acute fracture. 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 Eburnation of thegreater tuberosity, sequela of chronic rotator cuff injury. No focalsofttissue swelling. Lungs are clear as visualized. Cervical fusion. [facility] LOWER EXTREMITY VEIN WITH COMPRESSION BILATERAL (ONLY [...] on the right. No DVT on theleft.[facility] LOWER EXTREMITY VEIN WITH COMPRESSION BILATERAL (ONLY FOR RULE OUT DVT)2023-11-22 08:50:54Exam: US LOWER EXTREMITY VEIN WITH COMPRESSION BILATERAL (ONLY FOR RULE OUTDVT), 11/22/2023 2:00 AM. Ordering Physician: BASHAR AL HEMYARI. History: SOB, swelling . Comparison: CT chest [...] waveforms on the right. No DVT on theleft.[facility] Whole Blood 2023-11-22 08:16:23* Test Item Value Reference Range [facility]ation [facility] (test code = 3478564776) 3.93 mmol/L 0.50-2.20 H Lab Interpretation (test cod e = 13724-7) [facility] Eiwyi8396-87-61 08:16:23* Test Item Value Reference Range Interpretation [facility] LACTIC ACID (test code = 1434571680) 3.93 mmol/L 0.50-2.20 H Lab Interpretation (test cod e = 02686-1) Abnormal [facility] Acid Whole Agubc6377-01-35 08:16:23* Test Item Value Reference Range Interpretation [facility] LACTIC ACID (test code = 2117736700) 3.93 mmol/L 0.50-2.20 H Lab Interpretation (test cod e = 40547-4) Abnormal [facility] HospitalProthrombin Time / [id number] 05:00:31* Test Item Value Reference Range Interpretation Comme [facility] PROTIME PATIENT (test code = 5964-2) 15.4 10.1-12.6 H INR (test code = 6301-6) 1.3 Normal INR <1.1; Warfarin Therapeutic range 2.0 to 3.0 or 2.5 to 3.5, depending upon the indications. Lab Interpretation (test code = 02710-5) Abnormal [facility] HospitalaPTT2024-05-05 05:00:31* Test Item Value Reference Range Interpretation [facility] APTT Patient (test code = 3173-2) 27 26-36 LYNDSAY (test code = LYNDSAY) The [facility] patient population mean normal value for aPTT is 30 seconds. Lab Interpretation (test code = 63271-6) Normal [facility] HospitalProthrombin Time / [id number] 05:00:31* Test Item Value Reference Range Interpretation Comme nts PROTIME PATIENT (test code = 5964-2) 15.4 10.1-12.6 H INR (test code = 6301-6) 1.3 Normal INR <1.1; Warfarin Therapeutic range 2.0 to 3.0 or 2.5 to 3.5, depending upon the indications. Lab Interpretation (test code = 22088-2) Abnormal [facility]aPTT2024-05-05 05:00:31* Test Item Value Reference Range Interpretation Comme nts APTT Patient (test code = 3173-2) LYNDSAY (test code = LYNDSAY) The [facility] patient population mean normal value for aPTT is 30 seconds. Lab Interpretation (test code = 45413-2) Normal [facility] HospitalProthrombin Time / [id number] 05:00:31* Test Item Value Reference Range Interpretation Comme nts PROTIME PATIENT (test code = 5964-2) 15.4 10.1-12.6 H INR (test code = 6301-6) 1.3 Normal INR <1.1; Warfarin Therapeutic range 2.0 to 3.0 or 2.5 to 3.5, depending upon the indications. Lab Interpretation (test code = 66723-7) Abnormal [facility]PTT2024-05-05 05:00:31* Test Item Value Reference Range Interpretation Comme nts APTT Patient (test code = 3173-2) LYNDSAY (test code = LYNDSAY) The [facility] patient population mean normal value for aPTT is 30 seconds. Lab Interpretation (test code = 62767-5) Normal [facility] HospitalThyroid Stimulating Yygchry9793-52-60 04:25:31 * Test Item Value Reference Range Interpretation Comme nts TSH (test code = 0159707019) 5.26 0.45-4.70 H Lab Interpretation (test cod e = 14168-2) Abnormal [facility] HospitalThyroid Stimulating Mxoywfi0494-23-39 04:25:31 * Test Item Value Reference Range Interpretation Comme nts TSH (test code = 2223225914) 5.26 0.45-4.70 H Lab Interpretation (test cod e = 60658-5) Abnormal [facility] HospitalThyroid Stimulating Eulkprs4745-24-88 04:25:31 * Test Item Value Reference Range Interpretation Comme nts TSH (test code = 9335306917) 5.26 0.45-4.70 H Lab Interpretation (test cod e = 58662-6) Abnormal [facility] HospitalCritical Myvj1106-69-25 04:18:14Megan Rondon MD ? ? 11/21/2023 11:18 [...] of separately billable procedures and treating other patients.[facility] HospitalFr [id number] 04:11:28* Test Item Value Reference Range Interpretation Comme nts FREE T4 (test code = 5864062417) 1.07 0.78-2.20 Lab Interpretation (test cod e = 60887-0) Normal [facility] [id number] 04:11:28* Test Item Value Reference Range Interpretation Comme nts FREE T4 (test code = 2564902120) 1.07 0.78-2.20 Lab Interpretation (test cod e = 64244-6) Normal [facility] [id number] 04:11:28* Test Item Value Reference Range Interpretation Comme nts FREE T4 (test code = 2710530596) 1.07 0.78-2.20 Lab Interpretation (test cod e = 53711-6) Normal [facility] CHE[facility] 1 [id number] 03:22:56Exam: Chest (1 View), 11/21/2023 9:15 PM. Ordering Physician: MEGAN RONDON. History: Chest pain. Technique: One view of the chest. Comparison: 12/11/2022. Findings: Cardiac silhouette is moderately enlarged. There is no pneumothorax. Thereis no consolidation or pleural effusion. Stable mild diffuse interstitialopacities are noted. Pleural and diaphragmatic contours are normal. Changesof anterior ce rvical discectomy and fusion are seen.[facility] 1 [id number] 03:22:56Exam: Chest (1 View), 11/21/2023 9:15 PM. Ordering Physician: MEGAN RONDON. History: Chest pain. Technique: One view of the chest. Comparison: 12/11/2022. Findings: Cardiac silhouette is moderately enl arged. There is no pneumothorax. Thereis no consolidation or pleural effusion. Stable mild diffuse interstitialopacities are noted. Pleural and diaphragmatic contours are normal. Changesof anterior cervical discectomy and fusion are seen. [facility] HospitalBLOOD QKNEVKU9038-90-71 07:00:10* Test Item Value Reference Range Interpretation Comme nts CULTURE (BEAKER) (test code = 1095) No growth in 5 days XR KNEE 3 VIEWS LEFT Non-Weight Fzzvnty1621-87-80 09:27:00XR KNEE 3 VIEWS LEFT CLINICAL INDICATION: S/p fall COMPARISON: None FINDINGS: 3views of the left kne e. There is no fracture or malalignment. The femorotibial andfemoropatellar joint spaces are intact. No joint fluid is demonstrated.Surrounding soft tissues are unremarkable. Scattered atheroscleroticvascular calcifications.[facility] Non-Weight Irblrfz2225-84-70 09:27:00XR KNEE 3 VIEWS LEFT CLINICAL INDICATION: S/p fall COMPARISON: None FINDINGS: 3views of the left knee. There is no fracture or malalignment. The femorotibial andfemoropatellar joint spaces are intact. No joint fluid is demonstrated.Surrounding soft tissues are unremarkable. Scattered atheroscleroticvascular calcifications.[facility]NEE 3 VIEWS EIKD6434-92-40 09:27:00 [facility] 1970 Sex: FXR KNEE 3 VIEWS LEFT CLINICAL INDICATION: S/p fall COMPARISON: NoneFINDINGS: 3views of the left knee.There is no fracture or malalignment. The femorotibial andfemoropatellar joint spaces are intact.No joint fluid is demonstrated.Surrounding soft tissues are unremarkable. Scattered atheroscleroticvascular calcifications.IMPRESSION: No acute fracture or malalignment of the knee Electronically Signed By: Maxim Sultana09/08/2023 09:29 CDTWorkstation Name: [id number] ksdhv7057-81-13 08:53:50* Test Item Value Reference Range Interpretation Comme [facility] POC-Glucose Meter (test code = 1538) 101 mg/dL 70-110 : TESTED AT [facility] [address] [facility], [address]: Shrink Pit Supervisor/Cement Tile Maker ID = [id number] for Marie Delacruz Lab Interpretation (test code = 09853-0) Normal [facility]Glucose tmogm0328-06-04 08:53:50* Test Item Value Reference Range Interpretation Comme nts POC-Glucose Meter (test code = 1538) 101 mg/dL 70-110 : TESTED AT [facility] [address] [facility], [address]: Shrink Pit Supervisor/Cement Tile Maker ID = [id number] for Marie Delacruz Lab Interpretation (test code = 87740-1) [facility] [id number] 08:53:50* Test Item Value Reference Range Interpretation Comme nts POC-GLUCOSE METER (BEAKER) (test code = 1538) 101 mg/dL 70-110 : TESTED AT [facility] [address] [facility], [address]: Shrink Pit Supervisor/Cement Tile Maker ID = [id number] for Marie Delacruz BASIC METABOLIC [id number] 05:40:45* Test Item Value Reference Range Interpretation [...] GFR is not applicable for dialysis patients Shrink Pit Supervisor ID - [id number] 05:40:45* Test Item Value Reference Range Interpretation Comme nts MAGNESIUM (BEAKER) (test cod e = 627) 2.1 mg/dL 1.6-2.6 Shrink Pit Supervisor ID - ARHXMQNNRFALSMZ1234-60-95 05:40:45* Test Item Value Reference Range Interpretation Comme nts PHOSPHORUS (BEAKER) (test co de = 604) 5.0 mg/dL 2.3-4.7 H Shrink Pit Supervisor ID - ADMINCBC W/PLT COUNT & AUTO WICEMNMYXYZP5097-29-40 04:49:23* Test Item Value Reference Range Interpretation [...] code = 2801) 0.40 % 0.00-1.00 POCT-GLUCOSE [id number] 21:40:23* Test Item Value Reference Range Interpretation Comme nts POC-GLUCOSE METER (BEAKER) (test code = 1538) 144 mg/dL 70-110 H : TESTED AT [facility] [address] [facility], [address]: Shrink Pit Supervisor/Cement Tile Maker ID = [id number] for Diana Baeza Venous doppler legs jrwvjfjoc0019-97-14 14:27:12PV LAB - Lower Extremities DVT Study Demographics Patient Name YUE ROMERO Date of Study 09/07/2023 ESTELLE Age 53 Visit Number [id number] Gender Female Accession Number [id number] Date of 1970 Referring EDWARD FERRER Room Number 2263 Physician Superannuation Clerk Adalberto Wood Interpreting John Solorio, Physician FellowProcedureType [...] in cm/s ; [facility]ameters [facility] vxvamcmwc1847-87-73 14:27:12PV LAB - Lower Extremities DVT Study Demographics Patient Name YUE ROMERO Date of Study 09/07/2023 ESTELLE Age 53 Visit Number [id number] Gender Female Accession Number [id number] Dateof 1970 Referring EDWARD FERRER Room Number 2263 Physician Superannuation Clerk Adalberto Wood Interpreting John Solorio, Physician FellowProcedureType of Study: Veins: Lower Extremities DVT Study, VENOUS DOPPLER LEG, BILATERAL.Indications for Study:R/O DVT.Patient Status:Pending Discharge .Study Location:Vascular Lab.Technical Quality:Adequate visualization.Risk FactorsHistory of Disease [...] in cm/s ; Diameters are measured in [facility] MEQMPPHGK0673-54-45 04:05:54* Test Item Value Reference Range Interpretation Comme nts MAGNESIUM (BEAKER) (test code = 627) 2.0 mg/dL 1.6-2.6 Specimen sligh tly hemolyzed Shrink Pit Supervisor ID - MADELINE FYCJEYKSNHP4211-94-06 04:05:54* Test Item Value Reference Range Interpretation Comme nts PHOSPHORUS (BEAKER) (test code = 604) 4.5 mg/dL 2.3-4.7 Specimen sligh tly hemolyzed Shrink Pit Supervisor ID - MADELINE WBASIC METABOLIC IUJFV7333-75-39 04:05:54* Test Item Value Reference Range Interpretation [...] GFR is not applicable for dialysis patients Shrink Pit Supervisor ID - MADELINE WCBC W/PLT COUNT & AUTO QSSEKOAZOPNI6759-47-92 03:40:48* Test Item Value Reference Range Interpretation [...] code = 2801) 0.30 % 0.00-1.00 POCT-GLUCOSE [id number] 21:28:35* Test Item Value Reference Range Interpretation Comme nts POC-GLUCOSE METER (BEAKER) (test code = 1538) 127 mg/dL 70-110 H : TESTED AT [address], [address]: Shrink Pit Supervisor/Cement Tile Maker ID = [id number] for Ryan Morin POCT-GLUCOSE ASBBZ3801-74-13 18:49:21* Test Item Value Reference Range Interpretation Comme nts POC-GLUCOSE METER (BEAKER) (test code = 1538) 122 mg/dL 70-110 H : TESTED AT [address], [address]: Shrink Pit Supervisor/Cement Tile Maker ID = [id number] for Tyrell Lauren POCT-GLUCOSE [id number] 13:27:27* Test Item Value Reference Range Interpretation Comme nts POC-GLUCOSE METER (BEAKER) (test code = 1538) 130 mg/dL 70-110 H : TESTED AT [address], [address]: Shrink Pit Supervisor/Cement Tile Maker ID = [id number] for Tyrell Lauren RRPNTQUDZ4290-51-27 09:09:14* Test Item Value Reference Range Interpretation Comme nts MAGNESIUM (BEAKER) (test cod e = 627) 2.2 mg/dL 1.6-2.6 KJUANWPGFG5690-29-23 09:09:14* Test Item Value Reference Range Interpretation Comme nts PHOSPHORUS (BEAKER) (test co de = 604) 4.8 mg/dL 2.3-4.7 H BASIC METABOLIC [id number] 09:09:14* Test Item Value Reference Range Interpretation [...] is not applicable for dialysis patients POCT-GLUCOSE [id number] 08:33:30* Test Item Value Reference Range Interpretation Comme nts POC-GLUCOSE METER (BEAKER) (test code = 1538) 132 mg/dL 70-110 H : TESTED AT [facility] [address] [facility], [address]: Shrink Pit Supervisor/Cement Tile Maker ID = [id number] for Tyrell Lauren CBC W/PLT COUNT & AUTO LYOBOGRYNKRT3094-13-86 05:47:59* Test Item Value Reference Range Interpretation [...] code = 2801) 0.40 % 0.00-1.00 POCT-GLUCOSE [id number] 21:35:37* Test Item Value Reference Range Interpretation Comme nts POC-GLUCOSE METER (LATOYA) (test code = 1538) 129 mg/dL 70-110 H : TESTED AT [facility] [address] [facility], [address]: Shrink Pit Supervisor/Cement Tile Maker ID = [id number] for Ryan Morin MR Brain Without & With IV [id number] 15:49:58MR BRAIN WITH & WITHOUT IV CONTRAST [...] limits. No obstructive paranasal sinus disease. Additionalfindings: None.[facility]MR [facility] Without & With IV [id number] 15:49:58MR BRAIN WITH & WITHOUT IV CONTRAST [...] limits. No obstructive paranasal sinus disease. Additionalfindings: None.[facility] HospitalMR BRAIN WITH & WITHOUT IV [id number] 15:49:58 [facility] 1970 Sex: [...] Signed By: Zeinab Dempsey09/05/2023 15:53 CDTWorkstation Name: [id number] METER 2023-09-05 08:34:25* Test Item Value Reference Range Interpretation Comme nts POC-GLUCOSE METER (BEAKER) (test code = 1538) 115 mg/dL 70-110 H : TESTED AT [facility] [address] [facility], [address]: Shrink Pit Supervisor/Cement Tile Maker ID = [id number] for DOMINGA AMADOR BASIC METABOLIC [id number] 06:06:56* Test Item Value Reference Range Interpretation [...] GFR is not applicable for dialysis patients Shrink Pit Supervisor ID - RBRFJREYVAEVYY6949-73-19 06:06:56* Test Item Value Reference Range Interpretation Comme nts MAGNESIUM (BEAKER) (test cod e = 627) 2.2 mg/dL 1.6-2.6 Shrink Pit Supervisor ID - NLSEOURAJXARQWQ6613-99-72 06:06:56* Test Item Value Reference Range Interpretation Comme nts PHOSPHORUS (BEAKER) (test co de = 604) 3.8 mg/dL 2.3-4.7 Shrink Pit Supervisor ID - ADMINCBC W/PLT COUNT & AUTO [id number] 05:29:32* Test Item Value Reference Range Interpretation [...] code = 2801) 0.50 % 0.00-1.00 POCT-GLUCOSE [id number] 04:55:18* Test Item Value Reference Range Interpretation Comme nts POC-GLUCOSE METER (BEAKER) (test code = 1538) 99 mg/dL 70-110 : TESTED AT [address], [address]: Shrink Pit Supervisor/Cement Tile Maker ID = [id number] for Rosa Morinn POCT-GLUCOSE [id number] 21:49:23* Test Item Value Reference Range Interpretation Comme nts POC-GLUCOSE METER (BEAKER) (test code = 1538) 124 mg/dL 70-110 H : TESTED AT [facility] [address] [facility], [address]: Shrink Pit Supervisor/Cement Tile Maker ID = [id number] for Mikel, Kyahawn POCT-GLUCOSE [id number] 15:55:53* Test Item Value Reference Range Interpretation Comme nts POC-GLUCOSE METER (BEAKER) (test code = 1538) 126 mg/dL 70-110 H : TESTED AT [facility] [address] [place] [place], [address]: Shrink Pit Supervisor/Cement Tile Maker ID = [id number] for Tramaine Daniels [id number] 12:37:56* Test Item Value Reference Range Interpretation Comme nts PROCALCITONIN (LINNEAAKER) (test code = 3036) < ng/mL <0.05 SEPSIS RISK (ng/mL)Low: 0.05-0.50Intermediate: 0.51-2.00High: >=2.01SARS- CoV2/Influenza/RSV [id number] 12:18:09* Test Item Value Reference Range Interpretation Comments SARS-COV2/RT-PCR (test code = 01295-6) Negative Negative The SARS-CoV-2 target nucleic acids [...] provider. Influenza A RT-PCR (test code = 19104-7) Negative Negative The Flu A target nucleic acids are not detected in this specimen. Influenza B RT-PCR (test code = 44548-1) Negative Negative The Flu B target nucleic acids are not detected in this specimen. RSV by RT-PCR (test code = 40645-0) Negative Negative The RSV target nucleic acids [...] SARS-CoV-2/Flu/RSV by their healthcare provider. Results from [facility] Xpert Xpress SARS-CoV-2/Flu/RSV test should be correlated [...] the Act. Fact Sheet for Healthcare Providers:https://w LiveLeaf/Docu ments/Xpert%20Xpres s%20SARS%20CoV-2/Fa ct%20Sheets/302-390 2%07UFOX-QHK-0%20HE ALTHCARE%20PROVIDER S%20FACT%20SHEET.pd f Fact Sheet for Healthcare Patients:https://[employer]/Docum ents/Xpert%20Xpress %20SARS%20Cov-2/Fac t%20Sheets/302-3801 %60FYEA-GPG-9%20PAT IENT%20FACT%20SHEET .pdf Lab Interpretation (test code = 07345-4) [facility]fluenza/RSV [id number] 12:18:09* Test Item Value Reference Range Interpretation Comments SARS-COV2/RT-PCR (test code = 01698-9) Negative Negative The SARS-CoV-2 target nucleic acids [...] provider. Influenza A RT-PCR (test code = 92328-6) Negative Negative The Flu A target nucleic acids are not detected in this specimen. Influenza B RT-PCR (test code = 67874-9) Negative Negative The Flu B target nucleic acids are not detected in this specimen. RSV by RT-PCR (test code = 47532-8) Negative Negative The RSV target nucleic acids [...] SARS-CoV-2/Flu/RSV by their healthcare provider. Results from [facility] Xpert Xpress SARS-CoV-2/Flu/RSV test should be correlated [...] the Act. Fact Sheet for Healthcare Providers:https://w LiveLeaf/Docu ments/Xpert%20Xpres s%20SARS%20CoV-2/Fa ct%20Sheets/302-390 2%49IQUC-SZT-6%20HE ALTHCARE%20PROVIDER S%20FACT%20SHEET.pd f Fact Sheet for Healthcare Patients:https://ww Nutmeg/Docum ents/Xpert%20Xpress %20SARS%20Cov-2/Fac t%20Sheets/302-3801 %13SAMK-NAJ-5%20PAT IENT%20FACT%20SHEET .pdf Lab Interpretation (test code = 86528-8) Normal [facility]ARS[facility]OV[facility]/INFLUENZA/RSV [id number] 12:18:09* Test Item Value Reference Range Interpretation Comme nts SARS-COV2/RT-PCR (test code = 1626816) Negative Negative The SARS-CoV-2 t arget nucleic [...] provider. INFLUENZA A RT-PCR (test code = 8519636) Negative Negative The Flu A target nucleic acids are not detected in this specimen. INFLUENZA B RT-PCR (test code = 1372266) Negative Negative The Flu B target nucleic acids are not detected in this specimen. RSV RT-PCR (test code = 8117425) Negative Negative The RSV target n ucleic [...] 564(g) of the Act.Fact Sheet for Healthcare Providers:https://www.[employer]/Documents/Xpert%20Xpress%20SARS%20CoV-2/Fact%2 0Sheets/302-9332%86TEAO-BJS-4%20HEALTHCARE%20PROVIDERS%20FACT%20SHEET.pdfFact Sheet for Healthcare Patients:https://ww w.castaclip.Kanshu/Documents/Xpert%20Xpress%20SARS%20Cov-2/Fact%20Sheets/302-6024%20S ARS-COV-2%20PATIENT%20FACT%20SHEET.pdfPOCT-GLUCOSE [id number] 11:08:35* Test Item Value Reference Range Interpretation Comme nts POC-GLUCOSE METER (BEAKER) (test code = 1538) 111 mg/dL 70-110 H : TESTED AT [facility] [address] [facility], [address]: Shrink Pit Supervisor/Cement Tile Maker ID = [id number] for Tramaine Daniels POCT-GLUCOSE [id number] 08:16:42* Test Item Value Reference Range Interpretation Comme nts POC-GLUCOSE METER (BEAKER) (test code = 1538) 108 mg/dL 70-110 : TESTED AT [facility] [address] [facility], [address]: Shrink Pit Supervisor/Cement Tile Maker ID = [id number] for Beata Vargas MR spine lumbar without IV xmwnxcxl3566-92-03 07:58:49MR LUMBAR SPINE WITHOUT IV CONTRAST, MR [...] Posterior ligament ossifications at the calcifications at G38-X53xytoeuc moderate spinal canal stenosisPosterior disc osteophyte at the T11-T12 level causing mild spinal canalstenosis The spinal cord is normal in caliber and signal intensity. There is no significant foraminal or spinal canal stenosis. 2.1 x 2.3 cm left adrenal nodule, incompletely characterized Paraspinal soft tissues are unremarkable. Lumbar spine: Postoperative changes from posterior decompression at the L3 and Z7qirrdm. A 1.3 x 1.5 cm (AP by [...] facet arthropathy with moderatebilateral neural foraminal stenosisCHI [facility] HospitalMR spine lumbar without IV [id number] 07:58:49MR LUMBAR SPINE WITHOUT IV CONTRAST, MR [...] Posterior ligament ossifications at the calcifications at G10-S18wvjjslr moderate spinal canal stenosisPosterior disc osteophyte at the T11-T12 level causing mild spinal canalstenosis The spinal cord is normal in caliber and signal intensity. There is no significant foraminal or spinal canal stenosis. 2.1 x 2.3 cm left adrenal nodule, incompletely characterized Paraspinal soft tissues are unremarkable. Lumbar spine: Postoperative changes from posterior decompression at the L3 and K6ihrsdc. A 1.3 x 1.5 cm (AP by [...] facet arthropathy with moderatebilateral neural foraminal stenosisCHI [facility] HospitalMR thoracic spine without IV nnpfwtpt6142-05-09 07:58:49MR LUMBAR SPINE WITHOUT IV CONTRAST, MR [...] Posterior ligament ossifications at the calcifications at D63-X27rqymmko moderate spinal canal stenosisPosterior disc osteophyte at the T11-T12 level causing mild spinal canalstenosis The spinal cord is normal in caliber and signal intensity. There is no significant foraminal or spinal canal stenosis. 2.1 x 2.3 cm left adrenal nodule, incompletely characterized Paraspinal soft tissues are unremarkable. Lumbar spine: Postoperative changes from posterior decompression at the L3 and W6jjrhmn. A 1.3 x 1.5 cm (AP by [...] facet arthropathy with moderatebilateral neural foraminal stenosisCHI [facility] HospitalMR thoracic spine without IV rgmzbjas6817-44-28 07:58:49MR LUMBAR SPINE WITHOUT IV CONTRAST, MR [...] Posterior ligament ossifications at the calcifications at G23-O20pmqwjyr moderate spinal canal stenosisPosterior disc osteophyte at the T11-T12 level causing mild spinal canalstenosis The spinal cord is normal in caliber and signal intensity. There is no significant foraminal or spinal canal stenosis. 2.1 x 2.3 cm left adrenal nodule, incompletely characterized Paraspinal soft tissues are unremarkable. Lumbar spine: Postoperative changes from posterior decompression at the L3 and P3sfxeuj. A 1.3 x 1.5 cm (AP by [...] facet arthropathy with moderatebilateral neural foraminal stenosisCHI [facility] HospitalMR spine cervical without IV milbttlg3020-11-31 07:58:49MR LUMBAR SPINE WITHOUT IV CONTRAST, MR [...] Posterior ligament ossifications at the calcifications at U44-N63wlealie moderate spinal canal stenosisPosterior disc osteophyte at the T11-T12 level causing mild spinal canalstenosis The spinal cord is normal in caliber and signal intensity. There is no significant foraminal or spinal canal stenosis. 2.1 x 2.3 cm left adrenal nodule, incompletely characterized Paraspinal soft tissues are unremarkable. Lumbar spine: Postoperative changes from posterior decompression at the L3 and F9rxownw. A 1.3 x 1.5 cm (AP by [...] facet arthropathy with moderatebilateral neural foraminal stenosisCH[facility] HospitalMR spine cervical without IV dmmokpoy6878-08-81 07:58:49MR LUMBAR SPINE WITHOUT IV CONTRAST, MR [...] Posterior ligament ossifications at the calcifications at J09-V45ldpkzfv moderate spinal canal stenosisPosterior disc osteophyte at the T11-T12 level causing mild spinal canalstenosis The spinal cord is normal in caliber and signal intensity. There is no significant foraminal or spinal canal stenosis. 2.1 x 2.3 cm left adrenal nodule, incompletely characterized Paraspinal soft tissues are unremarkable. Lumbar spine: Postoperative changes from posterior decompression at the L3 and Z1jgdpnc. A 1.3 x 1.5 cm (AP by [...] facet arthropathy with moderatebilateral neural foraminal stenosisCHI [facility]a Community HospitalMR CERVICAL SPINE WITHOUT IV [id number] 07:58:49 [facility] : 1970 Sex: [...] ligament ossifications at the calcifications at T10- J80nzqqcem moderate spinal canal stenosisPosterior disc osteophyte at the T11- T12 level causing mild spinal canalstenosisThe spinal cord is normal in caliber and signal intensity. There is no significant foraminal or spinal canal stenosis.2.1 x 2.3 cm left adrenal nodule, incompletely characterizedParaspinal soft tissues are unremarkable.Lumbar spine:Postoperative changes from posterior decompression at the L3 and T8kcyoqo. A 1.3 x 1.5 cm (AP by [...] Signed By: Maxim Sultana09/04/2023 08:00 CDTWorkstation Name: [id number] THORACIC SPINE WITHOUT IV [id number] 07:58:49 [facility] : 1970 Sex: [...] ligament ossifications at the calcifications at T10- Q84txwszxs moderate spinal canal stenosisPosterior disc osteophyte at the T11- T12 level causing mild spinal canalstenosisThe spinal cord is normal in caliber and signal intensity. There is no significant foraminal or spinal canal stenosis.2.1 x 2.3 cm left adrenal nodule, incompletely characterizedParaspinal soft tissues are unremarkable.Lumbar spine:Postoperative changes from posterior decompression at the L3 and U1yardls. A 1.3 x 1.5 cm (AP by [...] Signed By: Maxim Sultana09/04/2023 08:00 CDTWorkstation Name: [id number] LUMBAR SPINE WITHOUT IV [id number] 07:58:[address] [facility] [...] ligament ossifications at the calcifications at T10- Q14ebcbqvn moderate spinal canal stenosisPosterior disc osteophyte at the T11- T12 level causing mild spinal canalstenosisThe spinal cord is normal in caliber and signal intensity. There is no significant foraminal or spinal canal stenosis.2.1 x 2.3 cm left adrenal nodule, incompletely characterizedParaspinal soft tissues are unremarkable.Lumbar spine:Postoperative changes from posterior decompression at the L3 and W4jgeznr. A 1.3 x 1.5 cm (AP by [...] Signed By: Maxim Sultana09/04/2023 08:00 CDTWorkstation Name: [id number] 07:46:14 * Test Item Value Reference Range Interpretation Comme nts FERRITIN (BEAKER) (test code = 361) 31.77 ng/mL 5.00-275.00 Shrink Pit Supervisor ID - hgIRON, TIBC, % SAT. (WITHOUT FERRITIN)2023-09-04 07:24:52* Test Item Value Reference Range Interpretation Comme nts IRON (BEAKER) (test code = 547) 22.0 ug/dL 40.0-160.0 L TOTAL IRON BINDING CAPACITY (BEAKER) (test code = 769) 369 ug/dL 250-450 IRON % SATURATION (2) (LINNEAAKE R) (test code = 2590) 6 % 20-55 L Shrink Pit Supervisor ID - hgCT spine thoracic without IV emyiezpm4147-83-49 05:42:45EXAM: CT THORACIC SPINE WITHOUT IV CONTRAST, [...] Bones/alignment: Age- indeterminate nondisplaced fracture of the A1rgezhregx elements, predominantly involving the lamina and pinusprocess.. [...] Postoperative changes in themidline posterior lumbar soft tissues.[facility] HospitalCT spine lumbar without IV ehjobcyz6881-34-75 05:42:45EXAM: CT THORACIC SPINE WITHOUT IV CONTRAST, [...] Bones/alignment: Age- indeterminate nondisplaced fracture of the C5mshgdivsl elements, predominantly involving the lamina and pinusprocess.. [...] Postoperative changes in themidline posterior lumbar soft tissues.[facility] HospitalCT spine thoracic without IV contrast 2023-09-04 [...] Bones/alignment: Age- indeterminate nondisplaced fracture of the K7ozedaxjco elements, predominantly involving the lamina and pinusprocess.. [...] Postoperative changes in themidline posterior lumbar soft tissues.[facility] HospitalCT spine lumbar without IV jopscdfa6988-17-28 05:42:45EXAM: CT THORACIC SPINE WITHOUT IV CONTRAST, [...] Bones/alignment: Age- indeterminate nondisplaced fracture of the H2yuagzlpya elements, predominantly involving the lamina and pinusprocess.. [...] Postoperative changes in themidline posterior lumbar soft tissues.[facility] HospitalCT LUMBAR SPINE WITHOUT IV [id number] 05:42:45[facility] : 1970 Sex: [...] spine:Bones/alignment: Age- indeterminate nondisplaced fracture of the R8lbsznsvbn elements, predominantly i nvolving the lamina and [...] Signed By: Suzan Weaver09/04/2023 05:45 CDTWorkstation Name: [id number] THORACIC SPINE WITHOUT IV [id number] 05:42:45 [facility] : 1970 Sex: [...] spine:Bones/alignment: Age- indeterminate nondisplaced fracture of the C2hbjxtropf elements, predominantly i nvolving the lamina and [...] Signed By: Suzan Chandra 05:45 CDTWorkstation Name: [id number] 2023-09-04 04:44:34* Test Item Value Reference Range Interpretation Comme nts FIBRINOGEN LEVEL (BEAKER) (t est code = 658) 410 mg/dl 225-434 Urinalysis without Srmufxbwxig1649-52-85 03:58:52* Test Item Value Reference Range Interpretation Comme nts Color, UA (test code = 5778-6) Light Yellow Clarity, UA (test code = 5767-9) Hazy Specific [place], UA (test code = 5811-5) 1.017 1.001-1.035 pH, UA (test code = 5803-2) 6.0 5.0-8.0 Protein, UA (test code = 17540-6) 10 mg/dL Negative A Glucose, UA (test code = 365) Negative Negative Ketones, UA (test code = 2514-8) Trace Negative A Bilirubin, UA (test code = 32366-7) Negative Negative Blood, UA (test code = 93347-8) Trace Negative A Nitrite, UA (test code = 5802-4) Negative Negative Leukocytes, UA (test code = 5799-2) Negative Negative Urobilinogen, UA (test code = 84956-9) 0.2 0.2-1.0 Specimen Source (test code = 2795) LYNDSAY (test code = LYNDSAY) Shrink Pit Supervisor ID - [auto]Shrink Pit Supervisor ID - tech Lab Interpretation (test code = 03096-6) Abnormal [facility] HospitalUrinalysis without Fjttvgtsfce4524-93-53 03:58:52* Test Item Value Reference Range Interpretation Comme nts Color, UA (test code = 5778-6) Light Yellow Clarity, UA (test code = 5767-9) Hazy Specific [place], UA (test code = 5811-5) 1.017 1.001-1.035 pH, UA (test code = 5803-2) 6.0 5.0-8.0 Protein, UA (test code = 35813-3) 10 mg/dL Negative A Glucose, UA (test code = 365) Negative Negative Ketones, UA (test code = 2514-8) Trace Negative A Bilirubin, UA (test code = 92900-8) Negative Negative Blood, UA (test code = 30619-9) Trace Negative A Nitrite, UA (test code = 5802-4) Negative Negative Leukocytes, UA (test code = 5799-2) Negative Negative Urobilinogen, UA (test code = 72404-7) 0.2 0.2-1.0 Specimen Source (test code = 2795) LYNDSAY (test code = LYNDSAY) Shrink Pit Supervisor ID - [auto]Shrink Pit Supervisor ID - tech Lab Interpretation (test code = 31351-2) Abnormal [facility] HospitalURINALYSIS WITHOUT HHUDJFAPNCY6763-56-97 03:58:52* Test Item Value Reference Range Interpretation [...] 0.2 0.2-1.0 SOURCE(BEAKER) (test code = 2795) Shrink Pit Supervisor ID - [auto]Shrink Pit Supervisor ID - techCBC W/PLT COUNT & [...] 2801) 0.70 % 0.00-1.00 Rapid drug screen, sfvzb2405-51-39 02:20:15* Test Item Value Reference Range Interpretation Comme nts Barbiturate Screen (test code = 30867-2) Negative Negative Benzodiazepine Screen (test code = 52720-9) Negative Negative Cocaine (Metab.) Screen (test code = 3397-7) Positive Negative A Methadone Screen (test code = 39186-3) Negative Negative Opiate Screen (test code = 06242-7) Negative Negative Cannabinoid Screen (test code = 79841-2) Positive Negative A Amph/Methamph Screen (test code = 55430-6) Negative Negative Phencyclidine Screen (test code = 97303-1) Negative Negative pH, UA (test code = 5803-2) 6.0 5.0-8.0 LYNDSAY (test code = LYNDSAY) DRUG CUTOFF CONC.Cocaine 300 ng/mL Cannabinoid 50 ng/mLBenzodiazepine 200 ng/mLBarbiturate 200 ng/mLPhencyclidine 25 ng/mLOpiate 300 ng/mLMethadone 300 ng/mLAmphetamine/ 1000 ng/mL Methamphetamine This assay provides an unconfirmed qualitative test result for the clinical management of patients in emergency situations. Chain of custody not maintained. Some ufgf-kfa-yphazpp medications, as well as adulterants, may cause inaccurate results. Clinical correlation should be applied. A more comprehensive drug screen or confirmation of a detected drug may be performed upon request.Shrink Pit Supervisor ID - ADMIN Lab Interpretation (test code = 99842-8) Abnormal [facility] HospitalRapid drug screen, gbkrj3300-08-83 02:20:15* Test Item Value Reference Range Interpretation Comme nts Barbiturate Screen (test code = 21235-9) Negative Negative Benzodiazepine Screen (test code = 15908-1) Negative Negative Cocaine (Metab.) Screen (test code = 3397-7) Positive Negative A Methadone Screen (test code = 97429-0) Negative Negative Opiate Screen (test code = 67882-2) Negative Negative Cannabinoid Screen (test code = 99735-2) Positive Negative A Amph/Methamph Screen (test code = 36308-0) Negative Negative Phencyclidine Screen (test code = 61806-8) Negative Negative pH, UA (test code = 5803-2) 6.0 5.0-8.0 LYNDSAY (test code = LYNDSAY) DRUG CUTOFF CONC.Cocaine 300 ng/mL Cannabinoid 50 ng/mLBenzodiazepine 200 ng/mLBarbiturate 200 ng/mLPhencyclidine 25 ng/mLOpiate 300 ng/mLMethadone 300 ng/mLAmphetamine/ 1000 ng/mL Methamphetamine This assay provides an unconfirmed qualitative test result for the clinical management of patients in emergency situations. Chain of custody not maintained. Some kjbt-fab-fqnxkpx medications, as well as adulterants, may cause inaccurate results. Clinical correlation should be applied. A more comprehensive drug screen or confirmation of a detected drug may be performed upon request.Shrink Pit Supervisor ID - ADMIN Lab Interpretation (test code = 81204-8) Abnormal [facility] HospitalRAPID DRUG SCREEN, NJWFH5105-25-01 02:20:15* Test Item Value Reference Range Interpretation [...] result for the clinical management of patients inemergency situations. Chain of custody not maintained. Some qawb-zdb-zekdbiz medications, as well as adulterants, may cause inaccurate results. Clinical correlation should be applied. A more comprehensive drug screen or confirmation of a detected drug may be performed upon request.Shrink Pit Supervisor ID - ADMINB-TYPE NATRIURETIC FACTOR (BNP)2023-09-04 02:11:53* Test Item Value Reference Range Interpretation Comme nts B-TYPE NATRIURETIC PEPTIDE (BEAKER) (test code = 700) 1761 pg/mL 0-100 H Shrink Pit Supervisor ID - ADMINLACTIC ACID, [id number] 02:10:37* Test Item Value Reference Range Interpretation Comme nts LACTATE BLOOD VENOUS (2) (BEAKER) (test code = 2872) 1.04 mmol/L 0.50-2.00 Specimen slightl y hemolyzed Shrink Pit Supervisor ID - AVJADRCAIEJCDJY3885-27-74 02:04:37* Test Item Value Reference Range Interpretation Comme nts PHOSPHORUS (BEAKER) (test code = 604) 4.2 mg/dL 2.3-4.7 Specimen sligh tly hemolyzed Shrink Pit Supervisor ID - ADMINCOMPREHENSIVE METABOLIC JFMOP6203-21-22 02:04:37* Test Item Value Reference Range Interpretation [...] GFR is not applicable for dialysis patients Shrink Pit Supervisor ID - [id number] 02:04:36* Test Item Value Reference Range Interpretation Comme nts MAGNESIUM (LATOYA) (test code = 627) 2.1 mg/dL 1.6-2.6 Specimen sligh tly hemolyzed Shrink Pit Supervisor ID - WHWAKW-WEPJC6563-01-16 01:45:13* Test Item Value Reference Range Interpretation [...] code = 760) 28.5 seconds 22.5-36.0 PROTHROMBIN TIME/YMA6434-51-80 01:42:15* Test Item Value Reference Range Interpretation Comme nts PROTIME (LATOYA) (test code = 759) 15.8 seconds 11.9-14.2 H INR (LATOYA) (test code = 370) 1.25 <=5.90 RECOMMENDED COUMADIN/WARFARIN INR THERAPY RANGESSTANDARD DOSE: 2.0 - 3.0 Includes: PROPHYLAXIS for venous thrombosis, systemic embolization; TREATMENT for venous thrombosis and/or pulmonary embolus.HIGH RISK: Target INR is 2.5-3.5 for patients with mechanical heart valves.LMO-JGXYDPJ1470-31-16 00:00:00Ordered by an unspecified provider.[facility] HospitalEKG-YYAGBVU5340-88-09 00:00:00Ordered by an unspecified provider.[facility] HospitalLactic Acid Whole Haxbh5125-58-97 20:51:22* Test Item Value Reference Range Interpretation Comme nts LACTIC ACID (test code = 9885036433) 1.56 mmol/L 0.50-2.20 Lab Interpretation (test cod e = 87562-4) Normal [facility]BL[facility] XLHODHA5135-58-74 07:00:09* Test Item Value Reference Range Interpretation Comme nts CULTURE (BEAKER) (test code = 1095) No growth in 5 days T-SPOT(R).AY0138-80-85 18:35:00* Test Item Value Reference Range Interpretation Comme nts T-SPOT.TB (test code = 48778-4) Negative SeeBelow Normal Value: Ne gativeA negative [...] CORRECTED FOR NEG CONTROL (test code = 48558-2) 0 NEGATIVE CONTROL (test code = 17803-5) Passed POSITIVE CONTROL (test code = 67758-7) Passed LYNDSAY (test code = LYNDSAY) [id number] [facility] HospitalT-SPOT(R).GC6139-14-05 18:35:00* Test Item Value Reference Range Interpretation Comme nts T-SPOT.TB (test code = 8603883) Negative SeeBelow Normal Value: Ne gativeA negative [...] CORRECTED FOR NEG CONTROL (test code = 1776022) 1 PANEL B SPOT COUNT CORRECTED FOR NEG CONTROL (test code = 5360419) 0 NEGATIVE CONTROL (test code = 7795214) Passed POSITIVE CONTROL (test code = 0326371) Passed LYNDSAY (test code = LYNDSAY) [id number] [facility][id number] 18:35:00* Test Item Value Reference Range Interpretation Comme nts T-SPOT.TB (test code = 83236-8) Negative SeeBelow Normal Value: Ne gativeA negative [...] CORRECTED FOR NEG CONTROL (test code = 03258-4) 0 NEGATIVE CONTROL (test code = 16498-0) Passed POSITIVE CONTROL (test code = 23291-7) Passed LYNDSAY (test code = LYNDSAY) [id number] [facility] HospitalTransesophageal [id number] 13:41:18 Transesophageal Echocardiography Report (CHETAN) Demographics Patient Name YUE ROMERO Date of Study 06/16/2023 ESTELLE Gender Female Visit Number [id number] Race Room Number 1055 Number Date of 1970 Referring Physician Age 53 year(s) Superannuation Clerk Interpreting Physician Brian MDProcedure Type of Study [...] Valve Partially visualized. Pulmonic Valve Not visualized.[facility] HospitalTrans[facility] echo 2023-06-16 13:41:18Transesophageal Echocardiography Report (HCETAN) Demographics Patient Name YUE ROMERO Date of Study 06/16/2023 ESTELLE Gender Female Visit Number [id number] Race Room Number 1055 Number Date of 1970 Referring Physician Age 53 year(s) Superannuation Clerk Interpreting Physician Brian MDProcedure Type of Study [...] Valve Partially visualized. Pulmonic Valve Not visualized.[facility] HospitalTrans[facility] echo 2023-06-16 13:41:18Transesophageal Echocardiography Report (CHETAN) Demographics Patient Name YUE ROMERO Date of Study 06/16/2023 ESTELLE Gender Female Visit Number [id number] Race Room Number 1055 Number Date of 1970 Referring Physician Age 53 year(s) Superannuation Clerk Interpreting Physician Brian MDProcedure Type of Study [...] Valve Partially visualized. Pulmonic Valve Not visualized.[facility] HospitalMRSA [id number] 09:55:41* Test Item Value Reference Range Interpretation Comme nts Result (test code = 6463-4) No [facility] isolated [facility] irlfbh5834-48-83 09:55:41* Test Item Value Reference Range Interpretation Comme nts Result (test code = 6463-4) No MRSA isolated [facility] [id number] 09:55:41* Test Item Value Reference Range Interpretation Comme nts CULTURE ([employer]) (test code = 1095) No MRSA isolated CRYPTOCOCCAL [id number] 15:50:36* Test Item Value Reference Range Interpretation Comme nts CRYPTOCOCCAL ANTIGEN, SERUM ([employer]) (test code = 1828) Negative Negative, Interference SPUTUM CULTURE + GRAM [id number] 10:30:11* Test Item Value Reference Range Interpretation Comme nts CULTURE ([employer]) (test code = 1095) PSEUDOMONAS AERUGINOSA A [...] this result as normal/abnormal. GRAM STAIN RESULT ([facility]) (test code = 1123) 3+ WBCs GRAM STAIN RESULT ([facility]) (test code = 129864) 10-15 epithelial cells GRAM STAIN RESULT ([facility]) (test code = 653070) 2+ gram positive cocci in chains and pairs GRAM STAIN RESULT (BEAKER) (test code = 272809) 1+ gram negative rods GRAM STAIN RESULT (BEAKER) (test code = 829354) 1+ yeast 2+ Normal respiratory rebel presentVANCOMYCIN LEVEL, [id number] 06:41:26* Test Item Value Reference Range Interpretation Comme nts VANCOMYCIN TROUGH (BEAKER) ( test code = 522) 17.0 ug/mL 10.0-20.0 Shrink Pit Supervisor ID - ADMINECHO W CONTRAST & [id number] 13:44:03Transthoracic Echocardiography Report (TTE) Demographics Patient Name YUE ROMERO Date of Study 06/14/2023 ESTELLE Gender Female Visit Number [id number] Race Room Number 1055 Number Date of 1970 Referring Aydee Go MD Physician Age 53 year(s) Superannuation Clerk James Albarran, AISHWARYA Interpreting Mauricio Bonilla Physician MDProcedure Type of [...] cm LV FS: 22.9 % LV PW Systolic:1.55 cm LVEDV Downs's:165.3 ml LVEDVI: 87 ml/m^2 LVESV Downs's:100.81 ml LVESVI: 53 ml/m^2 LVEF Downs's: 39 % LVOT Diameter: 2.03 cm Right Atrium RA Vol. (Sngl Plane): 40.22 ml Right VentricleRV Diast Dim.: 4 cm RVOT VTI: 12.16 [...] 5.66 mmHg Mean Velocity: 0.86 m/s Mean Gradient:3.28 mmHg LVOT Diameter: 2.03 cm LVOT VTI: 21.8 cm LVOT Area: 3.24 cm^2 LVOT SV:70.52 ml LVOT CO: 6.49 l/min LVOT CI: 3.42 l/min/m^2 Pulmonic Valve Peak Velocity: 0.85 m/s Peak Gradient: 2.89 mmHgCH[facility] W [facility]AST & [id number] 13:44:03Transthoracic Echocardiography Report (TTE) Demographics Patient Name YUE ROMERO Date of Study 06/14/2023 ESTELLE Gender Female Visit Number [id number] Race Room Number 1055 Number Date of 1970 Referring Aydee Go MD Physician Age 53 year(s) Superannuation Clerk James Albarran [facility] Interpreting Physician Brian MDProcedure Type ofStudy TTE procedure:2DECHO W DOPPLER(CW/PW/COLOR) [...] Velocity: 0.85 m/s Peak Gradient: 2.89 mmHgCHI Brea Community HospitalECHO W CONTRAST & [id number] 13:44:03Transthoracic Echocardiography Report (TTE) Demographics Patient Name YUE ROMERO Date of Study 06/14/2023 ESTELLE Gender Female Visit Number [id number] Race Room Number 1055 Number Date of 1970 Referring Aydee Go MD Physician Age 53 year(s) Superannuation Clerk James Albarran RDCS Interpreting Physician Brian MDProcedure [...] IVC/SVC/PA/PV/Pleural The IVC is <2.1cm and <50% collapsiblesuggestive of RAP of 8 mm Hg.Chambers/Structures Left Atrium LA Volume: 109.23 ml LA Vol. Index: 57ml/m^2 Left Ventricle LVIDd: 6.07 cm LVEDV:141.86 ml LVIDs: 4.68 cm LV Septum Diastolic: 1.11 cm LVSeptum Systolic: 0.91 cm LV Length: 8.77 cm [...] Velocity: 0.85 m/s Peak Gradient: 2.89 mmHgSan Francisco General HospitalHEMOGLOBIN A1C 2023-06-14 09:26:42* Test Item Value Reference Range Interpretation Comme nts HEMOGLOBIN A1C ELECTROPHORESIS ([employer]) (test code = 3811) 6.7 % See_Comment [...] 5.7- 6.4% indicates increased risk for diabetes (prediabetes)."Shrink Pit Supervisor ID - ADMOperator ID - ADMECG 12 [id number] 09:06:12Ventricular Rate 97 BPMAtrial Rate 97 BPMP-R Interval 146 msQRS Duration 96 msQ-T Interval 378 msQTC Calculation(Bazett) 480 msP [place] 68 degreesR [place] 107 degreesT [place] 18 degrees Suspect arm leadreversal, interpretation assumes no reversalNormal sinus rhythmRightward axisNonspecific T wave abnormalityAbnormal ECGWhen compared with ECG of 30-MAR-2023 13:06,QRS axis Shifted rightConfirmed by Luis Lopez ([id number]) on 06/14/2023 9:06:07 [facility] yxkr8889-04-14 09:06:12Ventricular Rate 97 BPMAtrial Rate 97 BPMP-R Interval 146 msQRS Duration 96 msQ-T Interval 378 msQTC Calculation(Bazett) 480 msP [place] 68 degreesR [place] 107 degreesT [place] 18 degrees Suspect arm leadreversal, interpretation assumes no reversalNormal sinus rhythmRightward axisNonspecific T wave abno rmalityAbnormal ECGWhen compared with ECG of 30-MAR-2023 13:06,QRS axis Shifted rightConfirmed by Luis Lopez ([id number]) on 06/14/2023 9:06:07 [facility] 12 [id number] 09:06:12Ventricular Rate 97 BPMAtrial Rate 97 BPMP-R Interval 146 msQRS Duration 96 msQ-T Interval 378 msQTC Calculation(Bazett) 480 msP [place] 68 degreesR [place] 107 degreesT [place] 18 degrees Suspect arm leadreversal, interpretation assumes no reversalNormal sinus rhythmRightward axisNonspecific T wave abnormalityAbnormal ECGWhen compared with ECG of 30-MAR-2023 13:06,QRS axis Shifted rightConfirmed by Luis Lopez ([id number]) on 06/14/2023 9:06:07 [facility] 12 [id number] 09:06:12Ventricular Rate 97 BPMAtrial Rate 97 BPMP-R Interval 146 msQRS Duration 96 msQ-T Interval 378 msQTC Calculation(Bazett) 480 msP [place] 68 degreesR [place] 107 degreesT [place] 18 degrees Suspect arm leadreversal, interpretation assumes no reversalNormal sinus rhythmRightward axisNonspecific T wave abno rmalityAbnormal ECGWhen compared with ECG of 30-MAR-2023 13:06,QRS axis Shifted rightConfirmed by Luis Lopez ([id number]) on 06/14/2023 9:06:07 [facility] HospitalBASI METABOLIC [id number] 04:48:18* Test Item Value Reference Range Interpretation [...] GFR is not applicable for dialysis patients Shrink Pit Supervisor ID - ADMINCBC (HEMOGRAM ONLY)2023-06-14 04:22:50* [...] 413) 0 /100 WBC 0-0 Strep pneumoniae [id number] 23:34:41* Test Item Value Reference Range Interpretation Comme nts Strep pneumoniae Antigen (test code = 00000-8) Presumptive negative for pneumococcal pneumonia - see [...] the test. Lab Interpretation (test code = 67140-4) [facility] [id number] 23:34:41* Test Item Value Reference Range Interpretation Comme nts Strep pneumoniae Antigen (test code = 18149-4) Presumptive negative for pneumococcal pneumonia - see [...] the test. Lab Interpretation (test code = 57220-7) Normal [facility] HospitalTREP PNEUMONIAE [id number] 23:34:41* Test Item Value Reference Range Interpretation [...] detection limit of the test. Legionella antigen, [id number] 23:29:07* Test Item Value Reference Range Interpretation Comme nts Legionella Urine Antigen (test code = 26282-5) Negative - see comment Negative Negative for L. pneumophila serogroup 1 antigen, suggesting no recent or current infection with this serogroup. Legionellosis cannot be ruled out since other serogroups and species may cause disease. Lab Interpretation (test code = 80781-9) Normal [facility] HospitalLegionella antigen, [id number] 23:29:07* Test Item Value Reference Range Interpretation Comme nts Legionella Urine Antigen (test code = 84657-1) Negative - see comment Negative Negative for L. pneumophila serogroup 1 antigen, suggesting no recent or current infection with this serogroup. Legionellosis cannot be ruled out since other serogroups and species may cause disease. Lab Interpretation (test code = 26965-8) Normal [facility] HospitalLEGIONELLA ANTIGEN, [id number] 23:29:07* Test Item Value Reference Range Interpretation Comme nts L. PNEUMOPHILA SEROGP 1 UR AG (BEAKER) (test code = 1156) Negative - see comment Negative Negative for L. pneumophila serogroup 1 antigen, suggesting no recent or current infection with this serogroup. Legionellosis cannot be ruled out since other serogroups and species may cause disease. Venous doppler arm, [id number] 20:05:32PV LAB - Upper Extremities Veins Demographics Patient Name YUE ROMERO Date of Study 06/13/2023 ESTELLE Age 53 Visit Number [id number] Gender Female Accession Number [id number] Date of 1970 Referring Marianela Burgess Room Number 1055 Physician Superannuation Clerk Lisa Ruiz Interpreting John Solorio, Physician FellowProcedureType [...] in cm/s ; Diameters are measured in [facility], [id number] 20:05:32PV LAB - Upper Extremities Veins Demographics Patient Name YUE ROMERO Date of Study 06/13/2023 ESTELLE Age 53 Visit Number [id number] Gender Female Accession Number [id number] Date of 1970 Referring Marianela Burgess Room Number 1055 Physician Superannuation Clerk Lisa Ruiz Interpreting Physician CARO Oliver FellowProcedureType of Study: Veins: Upper ExtremitiesVeins, VENOUS [...] in cm/s ; Diameters are measured in [facility]anoVenous doppler arm, [id number] 20:05:32PV LAB - Upper Extremities Veins Demographics Patient Name YUE ROMERO Date of Study 06/13/2023 ESTELLE Age 53 Visit Number [id number] Gender Female Accession Number [id number] Date ofBirth 1970 Referring Marianela Burgess Room Number 1055 Physician Superannuation Clerk Lisa RuizInterpreting John Solorio, Physician FellowProcedureType of Study: Veins: [...] in cm/s ; Diameters are measured in [facility]anoHIV-1 ANTIGEN WITH HIV-1/2 [id number] 18:36:40* Test Item Value Reference Range Interpretation Comme nts HIV-1 ANTIGEN WITH HIV 1\\T\\2 ANTIBODY (2) (LATOYA) (test code = 2586) Nonreactive Nonreactive MR lumbar spine without & with IV [id number] 14:53:29MR LUMBAR SPINE WITH & WITHOUT IV [...] x 1.7x 1.7 cm. Dorsal paraspinal musculature K9hgekbieokkihdy. Postcontrast imaging demonstrates mild peripheralenhancement of the dorsal paraspinal fluid collection. Left adrenalgland 2.9 cm nodule.[facility] HospitalMR lumbar spine without & with IV llxipqsx7095-98-79 14:53:29MR LUMBAR SPINE WITH & WITHOUT IV [...] x 1.7x 1.7 cm. Dorsal paraspinal musculature U6goivmkxjznhdlr. Postcontrast imaging demonstrates mild peripheralenhancement of the dorsal paraspinal fluid collection. Left adrenalgland 2.9 cm nodule.[facility] HospitalMR lumbar spine without & with IV tfijfnqd8294-52-32 14:53:29MR LUMBAR SPINE WITH & WITHOUT IV [...] x 1.7x 1.7 cm. Dorsal paraspinal musculature U7xmvvatlqygfuau. Postcontrast imaging demonstrates mild peripheralenhancement of the dorsal paraspinal fluid collection. Left adrenalgland 2.9 cm nodule.[facility] HospitalMR LUMBAR SPINE WITH & WITHOUT IV [id number] 14:53:29[facility] 1970 Sex: [...] 1.7 x 1.7 cm. Dorsal paraspinal musculature S4mvobyvceixnfxb. Postcontrast imaging demonstrates mild peripheralenhancement of the [...] Signed By: Ryan Buckley06/13/2023 14:55 CDTWorkstation Name: [id number] KINASE (CK)2023-06-13 11:54:02* Test Item Value Reference Range Interpretation Comme nts CREATINE KINASE TOTAL (BEAKE R) (test code = 380) 43 U/L 29-200 Shrink Pit Supervisor ID - ADMINCOMPREHENSIVE METABOLIC [id number] 06:48:22* Test Item Value Reference Range Interpretation [...] GFR is not applicable for dialysis patients Shrink Pit Supervisor ID - ADMINPROTHROMBIN TIME/RUP9793-91-84 06:40:01* Test Item Value Reference Range Interpretation [...] code = 2801) 1.70 % 0.00-1.00 H [id number] 05:26:09* Test Item Value Reference Range Interpretation Comme nts MAGNESIUM (BEAKER) (test cod e = 627) 2.0 mg/dL 1.6-2.6 Shrink Pit Supervisor ID - ESUEPRKJOUEYYWO8936-75-59 05:26:09* Test Item Value Reference Range Interpretation Comme nts PHOSPHORUS (BEAKER) (test co de = 604) 3.5 mg/dL 2.3-4.7 Shrink Pit Supervisor ID - ADMINBASIC METABOLIC [id number] 05:26:08* Test Item Value Reference Range Interpretation [...] GFR is not applicable for dialysis patients Shrink Pit Supervisor ID - ADMINCBC W/PLT COUNT & AUTO IROKBNUKEARJ1429-23-12 05:11:15* Test Item Value Reference Range Interpretation [...] VE PERCENT (BEBRIDGER) (test code = 2801) 0.70 % 0.00-1.00 XR spine lumbar 1 [id number] 10:32:20XR SPINE LUMBAR 1 VIEW CLINICAL INDICATION: L3-4 LAMINECTOMY [facility] 1 [id number] 10:32:20XR SPINE LUMBAR 1 VIEW CLINICAL INDICATION: L3-4 LAMINECTOMY COMPARISON: [facility]XR [facility] lumbar 1 view 2023-06-01 10:32:20XR SPINE LUMBAR 1 VIEW CLINICAL INDICATION: L3-4 LAMINECTOMY COM[facility]ISON: [facility]XR SPINE LUMBAR 1 [id number] 10:32:20[facility] : 1970 Sex: FXR SPINE LUMBAR 1 VIEWCLINICAL INDICATION: L3-4 LAMINECTOMYCOMPARISON: NoneIMPRESSION:A single lat eral view of the lumbar spine is obtained intraoperatively.The posterior approach surgical instrument is seen at the L3-L4 level,inferior to the L3 spinous process. Results were communicated to , who concurred with the above findings. Electronically Signed By: Maxim Ramos08/01/2022 10:34 CDTW orkstation Name: [id number] SPINE LUMBAR 1 [id number] 10:29:18 [facility] : 1970 Sex: [...] By: Maxim Jean Baptisteip108/01/2022 10:31 CDTWorkstation Name: [id number] Screen, itwia5426-36-08 05:32:52* Test Item Value Reference Range Interpretation Comme nts Preg Test, Ur (test code = 2-1) Negative Negative Lab Interpretation (test cod e = 15770-3) Normal [facility] HospitalPregnancy Screen, jodqm2759-97-90 05:32:52* Test Item Value Reference Range Interpretation Comme nts Preg Test, Ur (test code = 2-1) Negative Negative Lab Interpretation (test cod e = 33378-4) Normal [facility] HospitalPREGNANCY SCREEN, [id number] 05:32:52* Test Item Value Reference Range Interpretation Comme nts TEST URINE (BEAKER ) (test code = 583) Negative Negative BASIC METABOLIC SGPJZ2717-28-12 23:30:54* Test Item Value Reference Range Interpretation [...] GFR is not applicable for dialysis patients Shrink Pit Supervisor ID - ADMINPT/PCHW7619-20-77 23:15:33* Test Item Value Reference Range Interpretation [...] H CT neck soft tissue without IV qatgfbjb5476-46-60 13:45:22EXAM: CT NECK SOFT TISSUE WITHOUT IV [...] Postoperative changes from anterior cervical discectomy fusionat C3-T1Ljeqiwyd Lung Apices: NormalCHI Brea Community HospitalCT neck soft tissue without IV wlaqncqc9606-56-37 13:45:22EXAM: CT NECK SOFT TISSUE WITHOUT IV [...] Postoperative changes from anterior cervical discectomy fusionat C3-K4Kziulrym Lung Apices: NormalCHI Brea Community HospitalCT neck soft tissue without IV ormhsqez5652-82-69 13:45:22EXAM: CT NECK SOFT TISSUE WITHOUT IV [...] Postoperative changes from anterior cervical discectomy fusionat C3-K9Djohimls Lung Apices: NormalCHI Brea Community HospitalCT NECK SOFT TISSUE WITHOUT IV QVPDTQBG8730-34-30 13:45:22 [facility] : 1970 Sex: [...] Postoperative changes from anterior cervical discectomy fusionat C3-Q0Awwgnuxy Lung Apices: NormalIMPRESSION:Exam limited by lack of intravenous contrast.1. 1.8 x 2.9 x 1.3 cm ill-defined fluid collection in the leftanterolateral neck soft tissues, suggesting evolving postoperativehemorrhage. Superimposed infection is not ex cluded.2. Retropharyngeal fluid and air measuring up to 0.8 cm in thickness,favored to be present postoperative right frontal edema. Superimposedinfection is not excluded.3. Postoperative changes from ACDF at C3- U7Uknikxqjvgehyy Signed By: Maxim Ramos07/31/2022 13:47 CDTWorkstation Name: [id number] METABOLIC [id number] 08:13:13* Test Item Value Reference Range Interpretation [...] GFR is not applicable for dialysis patients Shrink Pit Supervisor ID - BVCBC W/PLT COUNT & AUTO [id number] 07:46:31* Test Item Value Reference Range Interpretation [...] 0.00-1.00 XR spine cervical 2 or 3 xjpnp8560-00-11 20:24:23TECHNIQUE: Frontal and lateral views of the cervical spine. INDICATION: Postop Standing Films. COMPARISON: None.[facility] HospitalXR spine cervical 2 or 3 iffkh2431-63-50 20:24:23TECHNIQUE: Frontal and lateral views of the cervical spine. INDICATION: Postop Standing Films. COMPARISON: None.[facility] HospitalXR spine cervical 2 or 3 tveug0810-81-17 20:24:23TECHNIQUE: Frontal and lateral views of the cervical spine. INDICATION: Postop Standing Films. COMPARISON: None.[facility] HospitalXR SPINE CERVICAL 2 OR 3 [id number] 20:24:23 [facility] : 1970 Sex: [...] Signed By: Zachariah Garcia05/28/2023 20:26 CDTWorkstation Name: [id number] fluoro non-specific up to 1 hour 2023-05-28 11:45:16This is a non-reportable study with no Radiologist dictation. Please refer to your PACS to review images, or Doc Flowsheets for documentation on studies without images.[facility] HospitalFL fluoro non-specific up to 1 ctbb0581-92-54 11:45:16This is a non-reportable study with no Radiologist dictation. Please refer to your PACS to review images, or Doc Flowsheets for documentation on studies without images.[facility] HospitalFL fluoro non-specific up to 1 whsg4439-63-55 11:45:16This is a non-reportable study with no Radiologist dictation. Please refer to your PACS to review images, or Doc Flowsheets for documentation on studies without images.[facility] HospitalFL FLUORO NON-SPECIFIC UP TO 1 [id number] 11:45:16 [facility] : 1970 Sex: FThis is a non- reportable study with no Radiologist dictation. Please refer to your PACS to review images, or Doc Flowsheets for documentation on studies without images.FL FLUORO NON-SPECIFIC UP TO 1 [id number] 10:13:02 [facility] : 1970 Sex: FTECHNIQUE: 1 lateral fluoroscopic image of the cervical spine forlocalization.Fluoroscopic time: 3second(s).FINDINGS:The surgical pointer is at C3-C4.The findings were discussed with Dr. Garcia in theOR who concurred withthe findings.IMPRESSION:Intraoperative localization plain film as described abo ve.Electronically Signed By: Derik Reyez05/28/2023 10:15 CDTWorkstation Name: [id number], QUANTITATIVE, DFHQYFGDI1679-06-27 08:21:03* Test Item Value Reference Range Interpretation Comme nts GONADOTROPIN, CHORIONIC (HCG ) QUANT (BEAKER) (test code = 649) < mIU/mL 0-10 Non- Females: <10 mIU/mL Females: Gestation Age Reference Range(mIU/mL) 0.2-1 Week 5-50 1-2 Weeks 50-500 2-3 Weeks 100-5,000 3-4 Weeks 500-10,000 4-5 Weeks 1,000-50,000 5-6 Weeks 10,000-100,000 6-8 Weeks 15,000- 200,000 2-3 Months 10,000-100,000 Shrink Pit Supervisor ID - ADMINCULTURE, JFIRW5764-01-28 09:28:30SPECIMEN NUMBER: [id number] CULTURE, URINE SPECIMEN NUMBER: [id number] SPECIMEN COMMENT: URINE SOURCE: URINE REPORT STATUS: FINAL FINAL REPORT: 05/15/2023 >100,000 CFU/ML UROGENITAL REBEL PRESENT NO COMMON PATHOGENS UNLESS OTHERWISE INDICATED, ALL TESTING PERFORMED AT [facility] [address] [place] [address] PROGRAMMING INTERNSHIP: JANNY STEINER M.D. CLIA NUMBER [id number] [place]. [id number], [id number] 12:02:50SPECIMEN NUMBER: [id number] CULTURE, URINE SPECIMEN NUMBER: [id number] SOURCE: URINE REPORT STATUS: FINAL FINAL REPORT: 05/13/2023 NO SPECIMEN RECEIVED FOR TESTING. CHARGES DELETED.BASIC METABOLIC [id number] 04:48:43* Test Item Value Reference Range Interpretation Comme nts GLUCOSE (test code = 2217) 117 MG/DL 70-99 H BUN (test code = 2208) 20 MG/DL 6-20 CREATININE (test code = 2214) 0.83 MG/DL 0.60-1.30 eGFR (2020 CKD-EPI) (test co de = 04819) 85 ML/MIN/1.73 >60 SODIUM (test code = [...] 12.7 SECONDS 12.5-14.7 INR (test code = 14082) 0.9 SEE BELOW CURRENT RECOMMENDATIONS ARE FOR AN INR OF 2.0-3.0 FOR ALL PATIENTS ON VITAMIN K ANTAGONISTS, EXCEPT THOSE WITH PROSTHETIC HEART VALVES, FOR WHOM INR OF 2.5-3.5 IS RECOMMENDED. UNLESS OTHERWISE INDICATED, ALL TESTING PERFORMED AT [facility] [address] [place] [address] [employer]GRAMMING INTERNSHIP: JANNY STEINER M.D. CLIA NUMBER [id number] [facility]. [id number] CBC W/AUTO DIFF WITH [id number] 01:54:17* Test Item Value Reference Range Interpretation [...] = 1065) 0.0 /100 WBC'S See_Comment [Automated [employer] ge] The system which generated this result [...] H ABS NUCLEATED RBCS (test code = 96197) 0.00 K/UL 0.00-0.11 ECG 12 [id number] 14:02:48Ventricular Rate 102 BPMAtrial Rate 102 BPMP-R Interval 146 msQRS Duration 90 msQ-T Interval 372 msQTC Calculation(Bazett) 484 msP [place] 11 degreesR [place] -53 degreesT [place] 29 degrees Sinus tachycardiaPossible Left atrial enlargementLeft axis deviationPoor R wave progression Cannot rule out Anterior infarct , age undetermined vs lead misplacementNonspecific T wave abnormalityProlonged QTAbnormal ECGNo previous ECGs availableConfirmed by David GARCIA BASANT ([id number]) on 04/06/2023 2:02:46 [facility] W CONTRAST & [id number] 13:11:39Transthoracic Echocardiography Report (TTE) Demographics Patient Name YUE ROMERO Date of Study 03/31/2023 ESTELLE Gender Female Visit Number [id number] Race Room Number 2227 Number Date of 1970 Referring Physician Mariah Aldridge MD Age 53year(s) Superannuation Clerk Wilmer Francois Assistant Professor Of Chemistry Josefina Corbett [facility] Interpreting John Solorio Physician MDProcedure Type [...] Velocity: 0.74 m/s Peak Gradient: 2.22 mmHgCHI Brea Community HospitalECHO W CONTRAST & [id number] 13:11:39Transthoracic Echocardiography Report (TTE) Demographics Patient Name YUE ROMERO Date of Study 03/31/2023 ESTELLE Gender Female Visit Number [id number] Race Room Number 2227 Number Date of 1970 Referring Physician Mariah Aldridge MD Age 53year(s) Superannuation Clerk Wilmer Francois Assistant Professor Of Chemistry Josefina Corbett AISHWARYA Interpreting Physician Melody MDProcedure [...] Velocity: 0.74 m/s Peak Gradient: 2.22 mmHgCHI Brea Community HospitalXR chest 1 view portable / [id number] 15:39:07TECHNIQUE: Frontal view of the chest. INDICATION: CHf. COMPARISON: None. FINDINGS: LINES/TUBES: None. HEART AND MEDIASTINUM: Cardiomediastinal contour is within normallimits. LUNGS: The lungs are well inflated and clear. No consolidation orpulmonary edema. PLEURA: No pneumothorax. No significant pleural effusion. SOFT TISSUES AND BONES: Cervical spinal fixation hardware is noted.[facility]XR [facility] 1 view portable / [id number] 15:39:07TECHNIQUE: Frontal view of the chest. INDICATION: CHf. COMPARISON: None. FINDINGS: LINES/TUBES: None. HEART AND MEDIASTINUM: Cardiomediastinal contour is within normallimits. LUNGS: The lungs are well inflated and clear. No consolidation orpulmonary edema. PLEURA: No pneumothorax. No significant pleural effusion. SOFT TISSUES AND BONES: Cervical spinal fixation hardware is noted.[facility] HospitalXR CHEST 1 VIEW PORTABLE / [id number] 15:39:07 [facility] 1970 Sex: FTECHNIQUE: Frontal view of the chest.INDICATION: CHf.COMPARISON: None.FINDINGS:LINES/TUBES: None.HE ART AND MEDIASTINUM: Cardiomediastinal contour is within normallimits. LUNGS: The lungs are well inflated and clear. No consolidation orpulmonary edema.PLEURA: No pneumothorax. No significant pleuraleffusion.SOFT TISSUES AND BONES: Cervical spinal fixation hardware is noted.IMPRESSION:No acute card iopulmonary process.Electronically Signed By: Jose Carlos Lebron04/01/2023 15:41 CDTWorkstation Name: [id number] NATRIURETIC FACTOR (BNP)2023-04-01 14:15:07* Test Item Value Reference Range Interpretation Comme nts B-TYPE NATRIURETIC PEPTIDE ( BEAKER) (test code = 700) 192 pg/mL 0-100 H Shrink Pit Supervisor ID - ADMINMR spine cervical without IV [id number] 11:30:35MRI cervical spine without contrast CLINICAL HISTORY: [...] paraspinal soft tissues are within normal limits.[facility] HospitalMR CERVICAL SPINE WITHOUT IV [id number] 11:30:35 [facility] : 1970 Sex: [...] Signed By: Maxim Sultana03/31/2023 11:32 CDTWorkstation Name: [id number] METABOLIC [id number] 04:43:14* Test Item Value Reference Range Interpretation [...] GFR is not applicable for dialysis patients Shrink Pit Supervisor GEOVANNA CORREA [facility] (HEMOGRAM ONLY)2023-03-31 04:20:07* Test Item Value [...] 0 /100 WBC 0-0 Arterial doppler legs loqjrsoij8788-18-57 17:44:07PV LAB - Lower Extremity Arterial Duplex Demographics Patient Name YUE ROMERO Date of Study ESTELLE Age 53 Visit Number [id number] Gender Female Accession Number [id number] of 1970 Referring Mariah Aldridge, Room Number 2227 Physician Superannuation Clerk Yovana Akins Interpreting John Solorio, Physician FellowProcedureType [...] + + + + + + !Prox RUBBER EXTRUSION MACHINE OPERATOR ! !32 ! !Biphasic ! !60.9 ! !Triphasic ! +- + + + + + + + + + !Mid RUBBER EXTRUSION MACHINE OPERATOR ! !25.9 ! !Biphasic ! !59.7 ! !Triphasic ! + + + + + + + + + + !Dist RUBBER EXTRUSION MACHINE OPERATOR ! !33.2 ! !Biphasic ! !37.4 [...] + + + + + + +[facility] HospitalArterial doppler legs wevhhdqil0398-96-88 17:44:07PV LAB - Lower Extremity Arterial Duplex Demographics Patient Name YUE ROMERO Date of Study 03/30/2023 ESTELLE Age 53 Visit Number [id number] Gender Female Accession Number [id number] of 1970 Referring Mariah [place], Room Number 2227 Physician Superannuation Clerk Yovana Akins Interpreting John Solorio, Physician FellowProcedureType [...] !EDV !Waveform ! !PSV !EDV !Waveform ! +------ + + + + + + + + + !Mid Common Femoral ! [...] + + + + + + !Prox RUBBER EXTRUSION MACHINE OPERATOR ! !32 ! !Biphasic ! !60.9 ! !Triphasic ! + + + + + + + + + + !MidPTA ! !25.9 ! !Biphasic ! !59.7 ! !Triphasic ! + + + + + + + + + + !Dist RUBBER EXTRUSION MACHINE OPERATOR ! !33.2 ! !Biphasic ! !37.4 ! !Biphasic ! +---- + + + + + + + + + !Prox KENDRA! !56.2 ! !Biphasic ! !60.5 ! !Triphasic ! + + + + + + + + + + !Mid KENDRA ! !36.7 ! !Biphasic ! !47.9 ! !Biphasic ! +-------- + + + + + + + + + !Dist KENDRA ! !3 7.4 ! !Biphasic ! !58.1 ! !Biphasic ! + + + + + + + + + + !Prox Peroneal ! !32.4 ! !Triphasic ! !60.5 ! !Triphasic ! +----- + + + + + + + + + !Mid Peroneal ! !27.9 ! !Biphasic ! !39.8 ! !Triphasic ! + + + + + + + + + + !Dist Peroneal ! !31.6 ! !Biphasic ! !23.6 ! !Biphasic ! + + + + + + + + + +[facility] HospitalABI's Only(Ankle/Brachial Index)2023-03-30 17:13:47PV LAB - Lower Extremity Arterial Procedure Demographics Patient Name YUE ROMERO Date of Study 03/30/2023 ESTELLE Age 53 Visit Number [id number] Gender Female Accession Number [id number] Date of 1970 Referring Mariah Aldridge, Room Number 2227 Physician Superannuation Clerk Yovana Akins Interpreting John Solorio, Physician FellowProcedureType [...] in cm/s ; Diameters are measured in [facility](Ankle/Brachial Index)2023-03-30 17:13:47PV LAB - Lower Extremity Arterial Procedure Demographics Patient Name YUE ROMERO Date of Study 03/30/2023 ESTELLE Age 53 Visit Number [id number] Gender Female Accession Number [id number] Date of 1970 Referring Mariah Jasen, Room Number 2227 Physician Superannuation Clerk Yovana Akins Interpreting John Solorio Physician FellowProcedureType of Study: Extremities Arteries: Lower Extremity Arterial Procedure, ARTERIAL (ALEISHA'S W/DOPPLER) ONLY.Indications for St udy:PVD.Patient Status:Routine.Study Location:Vascular Lab.Technical Quality:Adequate visualization.Risk FactorsHistory of [...] in cm/s ; Diameters are measured in [facility] thoracic spine without IV eylqyhsd8549-50-31 12:50:50MR THORACIC SPINE WITHOUT IV CONTRAST INDICATION: [...] further reported on MRI lumbar spine. [facility] HospitalMR THORACIC SPINE WITHOUT IV [id number] 12:50:50[facility] : 1970 Sex: [...] abnormality. T10-11 moderate right neural foraminal stenosis [id number] moderate bilateral foraminal stenosis due to facet [...] Signed By: Ryan Buckley03/30/2023 12:52 CDTWorkstation Name: [id number] spine lumbar without IV ktajvagw4328-71-76 12:33:57MR LUMBAR SPINE WITHOUT IV CONTRAST INDICATION: Unlisted Reason for ExamConcern for cord compression COMPARISON: None TECHNIQUE: Multiplanar, multisequence MR images of the lumbar spinewithout contrast. FINDINGS: For the purposes of this dictation, the 5 lowermost vclium-lvvvysimgzimj-eeyq vertebral bodies are labeled L1-L5.Alignment of the [...] with mild to moderatebilateral neural foraminal stenosisCHI Brea Community HospitalMR LUMBAR SPINE WITHOUT IV FXSPZPRL0806-26-39 12:33:57 [facility] : 1970 Sex: FMR LUMBAR SPINE WITHOUT IV CONTRASTINDICATION: Unlisted Reason for ExamConcern for cord compressionCOMPARISON: NoneTECHNIQUE: Multiplanar, multisequence MR images of the lumbar spinewithout contrast. FINDINGS: For the purposes of this dictation, the 5 lowermost awdqdj-nybhbzjebbugh-mbaf vertebral bodies are labeled L1- L5.Alignment of the lumbar spine is within normal limits. Vertebral body height is maintained. Bone marrow edema is seen at the inferior L3 and superior L4 vertebralbodies and bilateral L4 pedicles, favored to be degenerative in nature.Suggestion of a synovial cyst at the fpwxcT63-V81 level (series 301image eight).No spinal cord signal [...] flavum buckling versus synovial cyst at the ddtezZ71-R71 level (series 301image eight). MRI thoracic spine can beconsidered for further evaluation.7. Mild clumping of the cauda equina nerve roots, which is nonspecificbut may represent arachnoiditis. Postcontrast imaging can be consideredfor further evaluation.Electronically Signed By: Maxim Sultana03/30/2023 12:36 CDTWorkstation Name: [id number] 11:45:01* Test Item Value Reference Range Interpretation [...] 5.7- 6.4% indicates increased risk for diabetes (prediabetes)."Shrink Pit Supervisor ID - ADMEEG AWAKE AND IGGPLL4148-16-69 09:57:53Steph Martinez MD 03/30/2023 9:59 AMELECTROENCEPHALOGRAM FOR [facility] EEG Type: Inpatient, outpatient, EMUDATE(s) OF EE03/30/23DATE OF REPORT: 03/30/23MRN: [id number] of : 1970EE-1454Start time: 08:36Stop time: 09:23ICD-10: R56.9 CPT Code: 93231 (awake and asleep)HISTORY: 53 y/o female with [...] EEG recordings. Steph Elias MD, MPHNeurophysiology/Epilepsy AttendingCHI [facility]a [facility] Hospital EEG AWAKE AND [id number] 09:57:53Steph Martinez MD 03/30/2023 9:59 AMELECTROENCEPHALOGRAM FOR [facility] EEG Type: Inpatient, outpatient, EMUDATE(s) OF EE03/30/23DATE OF REPORT: 03/30/23MRN: [id number] of : 1970EE-1454Start time: 08:36Stop time: 09:23ICD-10: R56.9 CPT Code: 95081 (awake and asleep)HISTORY: 53 y/o female with [...] EEG recordings. Steph Elias MD, MPHNeurophysiology/Epilepsy AttendingCHI [facility]a [facility] Hospital EEG AWAKE AND [id number] 09:57:53Steph Martinez MD 03/30/2023 9:59 AMELECTROENCEPHALOGRAM FOR [facility] EEG Type: Inpatient, outpatient, EMUDATE(s) OF EE03/30/23DATE OF REPORT: 03/30/23MRN: [id number] of : 1970EE-1454Start time: 08:36Stop time: 09:23ICD-10: R56.9 CPT Code: 46459 (awake and asleep)HISTORY: 53 y/o female with [...] EEG recordings. Steph Elias MD, MPHNeurophysiology/Epilepsy AttendingCH[facility] Hospital EEG AWAKE AND VNHXDX5754-21-30 09:57:53Steph Martinez MD 03/30/2023 9:59 AMELECTROENCEPHALOGRAM FOR [facility] EEG Type: Inpatient, outpatient, EMUDATE(s) OF EE03/30/23DATE OF REPORT: 03/30/23MRN: [id number] of : 1970EE-1454Start time: 08:36Stop time: 09:23ICD-10: R56.9 CPT Code: 03662 (awake and asleep)HISTORY: 53 y/o female with [...] additional EEG recordings. Steph Elias MD, MPHNeurophysiology/Epilepsy AttendingSan [facility] General Hospital VALPROIC ACID LEVEL, [id number] 09:42:31* Test Item Value Reference Range Interpretation Comme nts VALPROIC ACID TOTAL (BEAKER) (test code = 924) 76 ug/mL 50-100 Therapeutic range for some clinical conditions may be >100 ug/mLUrinalysis w/Microscopic + Reflex to Ycgphyb0542-18-05 08:43:51* Test Item Value Reference Range Interpretation Comme nts Color, UA (test code = 5778-6) Yellow Clarity, UA (test code = 5767-9) Clear Specific [place], UA (test code = 5811-5) 1.033 1.001-1.035 pH, UA (test code = 5803-2) 6.0 5.0-8.0 Protein, UA (test code = 30709-8) 30 mg/dL Negative A Glucose, UA (test code = 365) Negative Negative Ketones, UA (test code = 2514-8) Negative Negative Bilirubin, UA (test code = 88363-6) Negative Negative Blood, UA (test code = 50581-9) Small Negative A Nitrite, UA (test code = 5802-4) Negative Negative Leukocytes, UA (test code = 5799-2) Negative Negative Urobilinogen, UA (test code = 56232-7) 0.2 0.2-1.0 RBC, UA (test code = 17620-4) 51 See_Comment [Automated message] The system which [...] Occasional Squam Epithel, UA (test code = 23982-2) See_Comment [Automated message] The system which generated this result transmitted reference range: /HPF. The reference range was not used to interpret this result as normal/abnormal. Specimen Source (test code = 2795) LYNDSAY (test code = LYNDSAY) Shrink Pit Supervisor ID - [auto]Shrink Pit Supervisor ID - tech Lab Interpretation (test code = 64814-8) Abnormal [facility] HospitalURINALYSIS W/ REFLEX URINE YPFKOTE7565-42-00 08:43:51 * Test Item Value Reference Range [...] < /HPF SOURCE(BEAKER) (test code = 2795) Shrink Pit Supervisor ID - [auto]Shrink Pit Supervisor ID - techCOMPREHENSIVE METABOLIC DRVVJ0797-13-32 04:37:29* Test Item Value Reference Range Interpretation [...] GFR is not applicable for dialysis patients Shrink Pit Supervisor ID - MATT BPT/FMQU9016-76-57 04:30:17* Test Item Value Reference Range Interpretation Comme nts PROTIME (LATOYA) (test code = 759) 13.8 seconds 11.9-14.2 INR (BEAKER) (test code = 370) 1.13 See_Comment [Automated [employer]] The system which generated this result transmitted [...] code = 413) 0 /100 WBC 0-0 VHI-[id number] 00:00:00Ordered by an unspecified provider.[facility] HospitalEKG-YOMSXQY8393-77-56 00:00:00Ordered by an unspecified provider. [facility] HospitalEKG-NSYTRWX7355-55-78 00:00:00Ordered by an unspecified provider.[facility] HospitalMAGNESIUM2023-05-25 17:14:06* Test Item Value Reference Range Interpretation Comme nts MAGNESIUM (test code = 1952410797) 1.9 mg/dL 1.7-2.4 Lab Interpretation (test cod e = 07861-1) Normal [facility] HospitalCOMP. METABOLIC PANEL (14221)2022-12-11 15:16:25* Test Item Value Reference Range Interpretation Comme nts NA (test code = 5081997770) 139 mmol/L 135-145 K (test code = 1548274892) 3.5 mmol/L 3.5-5.0 CL (test code = 9882405495) 107 mmol/L 98-108 CO2 TOTAL (test code = 4458525649) 24 mmol/L 23-31 AGAP (test code = 7898264228) 8 2-16 BUN (test code = 9145511682) 9 mg/dL 7-23 GLUCOSE (test code = 0190496113) 129 mg/dL 70-110 H CREATININE (test code = 4822074051) 0.68 mg/dL 0.50-1.04 TOTAL BILI (test code = 6988000292) 0.5 mg/dL 0.1-1.1 CALCIUM (test code = 2816821541) 8.9 mg/dL 8.6-10.6 T PROTEIN (test code = 1762889746) 6.3 g/dL 6.3-8.2 ALBUMIN (test code = 9763926441) 3.8 g/dL 3.5-5.0 ALK PHOS (test code = 5340429867) 87 U/L 34-122 ALTv (test code = 1742-6) 24 U/L 5-35 AST(SGOT) (test code = 5867973301) 21 U/L 13-40 eGFR (test code = 2914088446) 91.6 mL/min/1.73m2 LYNDSAY (test code = LYNDSAY) [...] imaging tests). Lab Interpretation (test code = 80949-3) Abnormal [facility] HospitalTROPONIN [id number] 15:10:45* Test Item Value Reference Range Interpretation Comme nts TROPONIN I (test code = 4114863500) 0.015 ng/mL <=0.034 LYNDSAY (test code = [...] of biotin. Lab Interpretation (test code = 73911-7) Normal [facility] HospitalN-TERMINAL AHU-ZQD8602-53-25 15:07:48* Test Item Value Reference Range Interpretation Comme nts NT-proBNP (test code = 7846461867) 1460 pg/mL <=125 H LYNDSAY (test code = LYNDSAY) Biotin has been reported to cause a negative bias, interpret results relative to patient's use of biotin. Lab Interpretation (test code = 27841-3) Abnormal [facility] HospitalD-XUALZ2011-19-02 14:45:24* Test Item Value Reference Range Interpretation Comments D-DIMER (test code = 4960183200) 0.99 See_Comment H [Automated message] The system [...] a diagnosis. Lab Interpretation (test code = 00120-3) Abnormal [facility] WITH [id number] 14:14:48* Test Item Value Reference Range Interpretation Comme nts WBC (test code = 6690-2) 7.86 See_Comment [Automated [employer]] The system which generated this result transmitted reference range: 4.30 - 11.10 10*3/?L. The reference range was not used to interpret this result as normal/abnormal. RBC (test code = 789-8) 5.13 See_Comment [Automated [employer]] The system which generated this result transmitted [...] g/dL 31.6-35.1 L RDW-SD (test code = 69344-3) 47.8 fL 39.0-49.9 RDW-CV (test code = 788-0) 16.9 % 12.0-15.5 H PLT (test code = 777-3) 507 See_Comment H [Automated messa ge] The system which generated this result transmitted reference range: 166 - 358 10*3/?L. The reference range was not used to interpret this result as normal/abnormal. MPV (test code = 12190-5) 8.2 fL 9.5-12.9 L NRBC/100 WBC (test code = 5254485860) 0.0 See_Comment [Automated me ssage] The system which generated this result transmitted reference range: 0.0 - 10.0 /100 WBCs. The reference range was not used to interpret this result as normal/abnormal. NRBC x10^3 (test code = 2699853016) See_Comment [Automated messa ge] The system which generated this result transmitted reference range: 10*3/?L. The reference range was not used to interpret this result as normal/abnormal. GRAN MAT (NEUT) % (test code = 770-8) 64.5 % IMM GRAN % (test code = 0898127461) 0.30 % LYMPH % (test code = 736-9) 25.6 % MONO % (test code = 5905-5) 7.5 % EOS % (test code = 713-8) 1.0 % BASO % (test code = 706-2) 1.1 % GRAN MAT x10^3(ANC) (test code = 1347895401) 5.07 10*3/uL 1.88-7.09 IMM GRAN x10^3 (test code = 1048957015) 0.00-0.06 LYMPH x10^3 (test code = 731-0) 2.01 10*3/uL 1.32-3.29 MONO x10^3 (test code = 742-7) 0.59 10*3/uL 0.33-0.92 EOS x10^3 (test code = 711-2) 0.08 10*3/uL 0.03-0.39 BASO x10^3 (test code = 704-7) 0.09 10*3/uL 0.01-0.07 H Lab Interpretation (test code = 39076-1) Abnormal [facility] HospitalRPR2023-01-17 13:17:22* Test Item Value Reference Range Interpretation Comme nts RPR SCREEN (BEAKER) (test co de = 420) Nonreactive Nonreactive HEMOGLOBIN [id number] 10:39:49* Test Item Value Reference Range Interpretation Comme nts HEMOGLOBIN A1C ELECTROPHORESIS (LATOYA) (test code = 3811) 5.8 % See_Comment H [Automated me ssage] The system which generated this result transmitted reference range: <=5.6%. The reference range was not used to interpret this result as normal/abnormal. "The A1c is measured using a [facility]-certified method. HbA1c value equal to or greater than 6.5% as the diagnosis cutoff for diabetes. An HbA1c value of 5.7- 6.4% indicates increased risk for diabetes (prediabetes)."Shrink Pit Supervisor ID - ADM VITAMIN [id number] 22:48:27* Test Item Value Reference Range Interpretation Comme nts VITAMIN B12 (LATOYA) (test c ode = 774) 227 pg/mL 213-816 Shrink Pit Supervisor ID - MARCOTSH/FREE T4 IF LDTIZRUUY8185-60-20 22:08:28* Test Item Value Reference Range Interpretation Comme nts THYROID STIMULATING HORMONE (LINNEAAKER) (test code = 772) 3.309 uIU/mL 0.350-4.940 Shrink Pit Supervisor ID - JSHIV-1 ANTIGEN WITH HIV-1/2 KZXQMJIU5146-56-83 22:08:28* Test Item Value Reference Range Interpretation Comme nts HIV-1 ANTIGEN WITH HIV 1\\T\\2 ANTIBODY (2) (LINNEAAKER) (test code = 2586) Nonreactive Nonreactive Shrink Pit Supervisor ID - JSC-REACTIVE HOOPZIV8109-73-21 21:49:44* Test Item Value Reference Range Interpretation Comme nts C-REACTIVE PROTEIN (BEAKER) (test code = 676) 0.35 mg/dL 0.00-0.50 Shrink Pit Supervisor ID - JSCOMPREHENSIVE METABOLIC YWENB9318-41-07 21:49:43* Test Item Value Reference Range Interpretation [...] GFR is not applicable for dialysis patients Shrink Pit Supervisor ID - JSLIPID DXTWI0989-26-53 21:49:43* Test Item Value Reference Range Interpretation [...] Borderline 130-159 High 160-189 Very High >=190 Shrink Pit Supervisor ID - JSCBC W/PLT COUNT & AUTO KVHFKVEUQXZV0596-91-09 21:34:03* Test Item Value Reference Range Interpretation [...] Interpretation Comme nts Height (test code = 4679149318) in Weight (test code = 3759295985) lbs Systolic BP (test code = 1870847259) mmHg Diastolic BP (test code = 6608688928) mmHg Heart Rate (test code = 1736081894) bpm BSA (test code = 1843711651) 2.00 m2 Ao root diam (test code = 1629648418) 3.20 cm Aortic root (test code = 5442859274) 3.2 cm Ao root annulus (test code = 1857870613) 3.2 cm LVOT diameter (test code = 9181975049) 1.99 cm LVOT area (test code = 0015818371) 3.10 cm2 LVIDD (test code = 0466316088) 5.10 cm Left Ventricular End Diastolic Volume by Teichholz Method (test code = 0361608) 123.0 mL IVS (test code = 5558491625) 1.34 cm Interventricular Septum Diastolic Thickness by 2D (test code = 6584307) 1.34 cm LVPWD (test code = 5435976565) 1.34 cm PW (test code = 4100834544) 1.34 cm 0.6-1.1 EF(Teich) (test code = 9679374865) 41.80 % LVIDS (test code = 3662721236) 4.00 cm Left Ventricular End Systolic Volume by Teichholz Method (test code = 0231562) 71.5 mL FS (test code = 0169875592) 21 % EF - 2D (test code = 34931517) 41.80 % LA size (test code = 5615972518) 4.6 cm Pulmonic Regurgitant End Max Velocity (test code = 8455794455) 119.4 cm/s LAV(MOD-sp4) (test code = 6520082805) 95.00 mL E wave decelartion time (test code = 8247497773) 0.15 s MV stenosis pressure 1/2 time (test code = 5027994343) 45.6 ms MV Peak A Evette (test code = 9862460631) 123.8 cm/s MV Peak E Evette (test code = 4885232361) 109.7 cm/s E/A ratio (test code = 8900207810) ratio MR max PG (test code = 2473950731) 87.20 mm[Hg] MR max evette (test code = 9646754241) 466.90 cm/s Mr max evette (test code = 8651995405) 466.9 m/s MV Prop V (test code = 8480277017) 51.00 cm/s MV E/e' septal (test code = 9758252527) 8.1 cm/s Tapse (test code = 1828280738) 2.21 cm LVOT stroke volume (test code = 7683178903) 49.80 cm3 LVOT peak evette (test code = 4301450284) 89.1 cm/s LVOT mn grad (test code = 9078025672) mmHg AV LVOT peak gradient (test code = 0686380058) mmHg LVOT peak VTI (test code = 5790691478) 16.0 cm LV V1 mean (test code = 0123438649) 64.30 cm/s Aortic valve mean velocity (test code = 2044081413) 133.8 cm/s Ao peak evette (test code = 0514610496) 175.3 cm/s Ao VTI (test code = 8373559309) 32.2 cm AV area by cont VTI (test code = 9294776792) 1.6 cm2 AV area peak evette (test code = 0412774032) 1.6 cm2 Ao max PG (test code = 4945912029) 12.30 mm[Hg] AV peak gradient (test code = 4175320863) mmHg AV valve area (test code = 1612399309) 1.55 cm2 AV mean gradient (test code = 2660347874) mmHg AV regurgitation pressure 1/2 time (test code = 4590366182) 358.5 ms AI dec slope (test code = 5108403774) 364.20 cm/s2 AI max evette (test code = 3940834771) 445.80 cm/s AI max PG (test code = 6025969894) 79.50 mm[Hg] Radiology Study observation (narrative) (test code = 17624-0) LYNDSAY (test code = LYNDSAY) ?Left?Ventricle: Left [...] [facility]PO[facility] (AUTOMATED)2022-08-01 10:43:32* Test Item Value Reference Range Interpretation Comme [facility] POCT GLU (test code = 6169176297) 148 mg/dL 70-110 H Lab Interpretation (test cod e = 20098-0) Abnormal [facility] HospitalACTIVATED PARTIAL THRMPLAS [id number] 18:39:45* Test Item Value Reference Range Interpretation Comme [facility] APTT Patient (test code = 3173-2) See_Comment [Automated message] The system which generated this result transmitted reference range: 23 - 38 Seconds. The reference range was not used to interpret this result as normal/abnormal. LYNDSAY (test code = LYNDSAY) The [facility] patient population mean normal value for aPTT is 30 seconds. Lab Interpretation (test code = 00790-1) Normal [facility] HospitalPROTHROMBIN TIME / [id number] 18:37:42* Test Item Value Reference Range Interpretation [...] the indications. Lab Interpretation (test code = 32922-3) Normal [facility] HospitalTROPONIN [id number] 18:32:01* Test Item Value Reference Range Interpretation Comments TROPONIN I (test code = 8899762007) 0.019 ng/mL See_Comment [Automated message] The system [...] of biotin. Lab Interpretation (test code = 61685-9) Normal [facility] HospitalN-TERMINAL KJE-FJX2604-09-12 18:29:01* Test Item Value Reference Range Interpretation Comme nts NT-proBNP (test code = 0659698404) 2770 pg/mL See_Comment H [Automated message] The system which generated this result transmitted reference range: <=125. The reference range was not used to interpret this result as normal/abnormal. LYNDSAY (test code = LYNDSAY) Biotin has been reported to cause a negative bias, interpret results relative to patient's use of biotin. Lab Interpretation (test code = 67611-6) Abnormal [facility]. METABOLIC PANEL (59341)2022-07-31 18:21:42* Test Item Value Reference Range Interpretation Comme nts NA (test code = 9918454183) 136 mmol/L 135-145 K (test code = 3084830407) 4.6 mmol/L 3.5-5.0 CL (test code = 6348927144) 104 mmol/L 98-108 CO2 TOTAL (test code = 7523553070) 26 mmol/L 23-31 AGAP (test code = 4634474465) 2-16 BUN (test code = 4092026220) 9 mg/dL 7-23 GLUCOSE (test code = 9551110667) 97 mg/dL 70-110 CREATININE (test code = 5595698927) 0.64 mg/dL 0.50-1.04 TOTAL BILI (test code = 9950218795) 0.5 mg/dL 0.1-1.1 CALCIUM (test code = 9703060669) 8.2 mg/dL 8.6-10.6 L T PROTEIN (test code = 2100694467) 6.5 g/dL 6.3-8.2 ALBUMIN (test code = 7167627980) 3.9 g/dL 3.5-5.0 ALK PHOS (test code = 7498924354) 93 U/L 34-122 ALTv (test code = 1742-6) 18 U/L 5-35 AST(SGOT) (test code = 5208585424) 19 U/L 13-40 eGFR (test code = 5256890750) mL/min/1.73m2 LYNDSAY (test code = LYNDSAY) Association [...] imaging tests). Lab Interpretation (test code = 21275-5) [facility] Test Item Value Reference Range Interpretation Comme nts LIPASE (test code = 7486925641) 54 U/L 0-220 Lab Interpretation (test cod e = 73971-5) Normal [facility] WITH MAKF4439-02-97 18:07:00* Test Item Value Reference Range Interpretation Comme nts WBC (test code = 6690-2) See_Comment [Automated [employer]] The system which generated this result transmitted reference range: 4.30 - 11.10 10*3/?L. The reference range was not used to interpret this result as normal/abnormal. RBC (test code = 789-8) See_Comment [Automated [employer]] The system which generated this result transmitted [...] g/dL 31.6-35.1 L RDW-SD (test code = 31500-2) 53.1 fL 39.0-49.9 H RDW-CV (test code = 788-0) 17.0 % 12.0-15.5 H PLT (test code = 777-3) See_Comment H [Automated messa ge] The system which generated this result transmitted reference range: 166 - 358 10*3/?L. The reference range was not used to interpret this result as normal/abnormal. MPV (test code = 26611-8) 8.2 fL 9.5-12.9 L NRBC/100 WBC (test code = 9360746933) See_Comment [Automated [employer]] The system which generated this result transmitted reference range: 0.0 - 10.0 /100 WBCs. The reference range was not used to interpret this result as normal/abnormal. NRBC x10^3 (test code = 2973015887) See_Comment [Automated messa ge] The system which generated this result transmitted reference range: 10*3/?L. The reference range was not used to interpret this result as normal/abnormal. GRAN MAT (NEUT) % (test code = 770-8) 64.0 % IMM GRAN % (test code = 1194709992) 0.40 % LYMPH % (test code = 736-9) 27.3 % MONO % (test code = 5905-5) 6.5 % EOS % (test code = 713-8) 1.1 % BASO % (test code = 706-2) 0.7 % GRAN MAT x10^3(ANC) (test code = 3426992812) 5.46 10*3/uL 1.88-7.09 IMM GRAN x10^3 (test code = 8798474691) 0.03 10*3/uL 0.00-0.06 LYMPH x10^3 (test code = 731-0) 2.32 10*3/uL 1.32-3.29 MONO x10^3 (test code = 742-7) 0.55 10*3/uL 0.33-0.92 EOS x10^3 (test code = 711-2) 0.09 10*3/uL 0.03-0.39 BASO x10^3 (test code = 704-7) 0.06 10*3/uL 0.01-0.07 Lab Interpretation (test code = 39719-5) Abnormal [facility] METABOLIC PANEL (NA, K, CL, CO2, GLUCOSE, BUN, CREATININE, CA)2022-05-08 06:37:01* Test Item Value Reference Range Interpretation Comme nts NA (test code = 1722928747) 137 mmol/L 135-145 K (test code = 1021556584) 3.8 mmol/L 3.5-5 CL (test code = 1767963441) 103 mmol/L 98-108 CO2 TOTAL (test code = 7076777860) 24 mmol/L 23-31 AGAP (test code = 0944389692) 2-16 BUN (test code = 5515704773) 13 mg/dL 7-23 GLUCOSE (test code = 6230414852) 90 mg/dL 70-110 CREATININE (test code = 6248874335) 0.69 mg/dL 0.5-1.04 CALCIUM (test code = 0834051894) 8.5 mg/dL 8.6-10.6 L eGFR (test code = 9306112970) mL/min/1.73m2 LYNDSAY (test code = LYNDSAY) Association [...] imaging tests). Lab Interpretation (test code = 13678-7) [facility] 06:37:01* Test Item Value Reference Range Interpretation Comme nts MAGNESIUM (test code = 2530134544) 2.1 mg/dL 1.7-2.4 Lab Interpretation (test cod e = 87086-2) Normal [facility]2022-[facility] 06:37:01* Test Item Value Reference Range Interpretation Comme nts PHOSPHORUS (test code = 2517512324) 4.7 mg/dL 2.5-5 Lab Interpretation (test cod e = 51665-4) Normal [facility] WITH [id number] 06:11:54* Test Item Value Reference Range Interpretation Comme nts WBC (test code = 6690-2) See_Comment [Automated [employer]] The system which generated this result transmitted reference range: 4.30 - 11.10 10*3/?L. The reference range was not used to interpret this result as normal/abnormal. RBC (test code = 789-8) See_Comment [Automated [employer]] The system which generated this result transmitted [...] 32.4 g/dL 31.6-35.1 RDW-SD (test code = 34869-8) 51.0 fL 39-49.9 H RDW-CV (test code = 788-0) 16.5 % 12-15.5 H PLT (test code = 777-3) See_Comment H [Automated messa ge] The system which generated this result transmitted reference range: 166 - 358 10*3/?L. The reference range was not used to interpret this result as normal/abnormal. MPV (test code = 70996-3) 8.3 fL 9.5-12.9 L NRBC/100 WBC (test code = 7709443017) See_Comment [Automated [employer]] The system which generated this result transmitted reference range: 0.0 - 10.0 /100 WBCs. The reference range was not used to interpret this result as normal/abnormal. NRBC x10^3 (test code = 9521245240) See_Comment [Automated messa ge] The system which generated this result transmitted reference range: 10*3/?L. The reference range was not used to interpret this result as normal/abnormal. GRAN MAT (NEUT) % (test code = 770-8) 64.5 % IMM GRAN % (test code = 7824091567) 0.50 % LYMPH % (test code = 736-9) 27.1 % MONO % (test code = 5905-5) 6.6 % EOS % (test code = 713-8) 0.6 % BASO % (test code = 706-2) 0.7 % GRAN MAT x10^3(ANC) (test code = 6794818936) 5.28 10*3/uL 1.88-7.09 IMM GRAN x10^3 (test code = 8349109567) 0.04 10*3/uL 0-0.06 LYMPH x10^3 (test code = 731-0) 2.22 10*3/uL 1.32-3.29 MONO x10^3 (test code = 742-7) 0.54 10*3/uL 0.33-0.92 EOS x10^3 (test code = 711-2) 0.05 10*3/uL 0.03-0.39 BASO x10^3 (test code = 704-7) 0.06 10*3/uL 0.01-0.07 Lab Interpretation (test code = 91793-9) Abnormal [facility]PO[facility]SE (AUTOMATED)2022-05-07 01:18:10* Test Item Value Reference Range Interpretation Comme nts POCT GLU (test code = 4968251180) 120 mg/dL 70-110 H Lab Interpretation (test cod e = 62057-7) Abnormal [facility] HospitalType and Screen - ONCE Adajyjn1650-89-07 05:46:35* Test Item Value Reference Range Interpretation Comme nts ABO & RH (test code = 20) O POSITIVE Performed at [facility] Laboratory Services [facility] Blood [address] Free: [phone] No. [id number] IAT (test code = 1185) Negative Performed at [facility] Laboratory Services [facility] Blood [address] Free: [phone] No. [id number] [facility]OLIC PAN[facility] (NA, K, CL, CO2, GLUCOSE, BUN, CREATININE, CA)2022-05-05 08:22:57* Test Item Value Reference Range Interpretation Comme nts NA (test code = 1058876719) 136 mmol/L 135-145 K (test code = 1495709139) 4.9 mmol/L 3.5-5 CL (test code = 0690265417) 108 mmol/L 98-108 CO2 TOTAL (test code = 3072247247) 22 mmol/L 23-31 L AGAP (test code = 4952455450) 2-16 BUN (test code = 1228246806) 12 mg/dL 7-23 GLUCOSE (test code = 7561528254) 155 mg/dL 70-110 H CREATININE (test code = 2543439647) 0.63 mg/dL 0.5-1.04 CALCIUM (test code = 8799194923) 8.4 mg/dL 8.6-10.6 L eGFR (test code = 4285215622) mL/min/1.73m2 LYNDSAY (test code = LYNDSAY) Association [...] imaging tests). Lab Interpretation (test code = 97922-7) Abnormal [facility] HospitalPROTHROMBIN TIME / [id number] 08:22:37* Test Item Value Reference Range Interpretation [facility] PAT[facility] (test code = 5964-2) See_Comment [[employer]] The system which generated this result transmitted reference range: 10.1 - 12.6 Seconds. The reference range was not used to interpret this result as normal/abnormal. INR (test code = 6301-6) Normal INR <1.1; Warfarin Therapeutic range 2.0 to 3.0 or 2.5 to 3.5, depending upon the indications. Lab Interpretation (test code = 36402-2) Normal [facility] HospitalaPTT2022-10-17 08:22:37* Test Item Value Reference Range Interpretation [facility] APTT Patient (test code = 3173-2) See_Comment [Automated messa ge] The system which generated this result transmitted reference range: 26 - 36 Seconds. The reference range was not used to interpret this result as normal/abnormal. Lab Interpretation (test code = 71038-9) Normal [facility] HospitalFIBRINOGEN2022-10-17 08:22:37* Test Item Value Reference Range Interpretation Comme nts Fibrinogen (test code = 3903080699) 294 mg/dL 167-453 Lab Interpretation (test cod e = 04708-1) Normal [facility] WITH [id number] 08:15:01* Test Item Value Reference Range Interpretation [...] g/dL 31.6-35.1 L RDW-SD (test code = 58699-6) 52.9 fL 39-49.9 H RDW-CV (test code = 788-0) 16.8 % 12-15.5 H PLT (test code = 777-3) See_Comment H [Automated messa ge] The system which generated this result transmitted reference range: 166 - 358 10*3/?L. The reference range was not used to interpret this result as normal/abnormal. MPV (test code = 18364-1) 8.3 fL 9.5-12.9 L NRBC/100 WBC (test code = 6080496131) See_Comment [Automated me ssage] The system which generated this result transmitted reference range: 0.0 - 10.0 /100 WBCs. The reference range was not used to interpret this result as normal/abnormal. NRBC x10^3 (test code = 3704533316) See_Comment [Automated messa ge] The system which generated this result transmitted reference range: 10*3/?L. The reference range was not used to interpret this result as normal/abnormal. GRAN MAT (NEUT) % (test code = 770-8) 86.4 % IMM GRAN % (test code = 7581357364) 0.40 % LYMPH % (test code = 736-9) 11.7 % MONO % (test code = 5905-5) 1.1 % EOS % (test code = 713-8) 0.0 % BASO % (test code = 706-2) 0.4 % GRAN MAT x10^3(ANC) (test code = 8070858870) 6.36 10*3/uL 1.88-7.09 IMM GRAN x10^3 (test code = 5021685371) 0.03 10*3/uL 0-0.06 LYMPH x10^3 (test code = 731-0) 0.86 10*3/uL 1.32-3.29 L MONO x10^3 (test code = 742-7) 0.08 10*3/uL 0.33-0.92 L EOS x10^3 (test code = 711-2) 0.03-0.39 L BASO x10^3 (test code = 704-7) 0.03 10*3/uL 0.01-0.07 Lab Interpretation (test code = 61272-1) Abnormal [facility] HospitalVITAMIN D, [id number] 20:14:03* Test Item Value Reference Range Interpretation Comme nts VIT D 25OH (test code = 56330-0) 22 ng/mL 25-80 L LYNDSAY (test code = LYNDSAY) Deficiency: <20 ng/mLInsufficiency: 20-24 ng/mLOptimal: 25-80 ng/mL Lab Interpretation (test code = 33799-1) Abnormal [facility]BASI METABOLIC PANEL (NA, K, CL, CO2, GLUCOSE, BUN, CREATININE, CA)2022-04-15 11:27:57* Test Item Value Reference Range Interpretation Comme nts NA (test code = 3862014873) 138 mmol/L 135-145 K (test code = 4937813354) 3.9 mmol/L 3.5-5 CL (test code = 4685628774) 106 mmol/L 98-108 CO2 TOTAL (test code = 2236005402) 23 mmol/L 23-31 AGAP (test code = 5835910892) 2-16 BUN (test code = 0950391552) 10 mg/dL 7-23 GLUCOSE (test code = 8829528281) 91 mg/dL 70-110 CREATININE (test code = 6515385875) 0.65 mg/dL 0.5-1.04 CALCIUM (test code = 2551161807) 8.1 mg/dL 8.6-10.6 L eGFR (test code = 7781642898) mL/min/1.73m2 LYNDSAY (test code = LYNDSAY) Association [...] imaging tests). Lab Interpretation (test code = 37515-9) Abnormal [facility] HospitalSTROKE Protocol - Transthoracic echo (TTE) 2022-04-14 22:07:33* Test Item Value Reference Range Interpretation Comme nts Height (test code = 2368223174) in Weight (test code = 0739340311) lbs Systolic BP (test code = 6717223357) mmHg Diastolic BP (test code = 5993369209) mmHg Heart Rate (test code = 8735882731) bpm BSA (test code = 4603119167) 1.94 m2 TASV (test code = 9236628945) 15.5 cm/s LVIDD (test code = 9735904922) 6.00 cm Left Ventricular End Diastolic Volume by Teichholz Method (test code = 9236547) 183.0 mL IVS (test code = 6524981063) 1.09 cm Interventricular Septum Diastolic Thickness by 2D (test code = 5963021) 1.09 cm LVPWD (test code = 9413602812) 0.94 cm PW (test code = 1630804863) 0.94 cm 0.6-1.1 EF(Teich) (test code = 0366118304) 40.30 % LVIDS (test code = 0637932185) 4.80 cm Left Ventricular End Systolic Volume by Teichholz Method (test code = 4722579) 109.2 mL FS (test code = 9110378175) 20 % EF - 2D (test code = 90250712) 40.30 % LVOT diameter (test code = 2479127840) 2.05 cm LVOT area (test code = 8006295015) 3.30 cm2 Ao root diam (test code = 9782841618) 3.10 cm Aortic root (test code = 4360675616) 3.1 cm Ao root annulus (test code = 8997107325) 3.1 cm LA size (test code = 5649678770) 4.2 cm LAV(MOD-sp4) (test code = 4218825402) 64.90 mL MV Peak A Evette (test code = 9274169857) 115.7 cm/s E wave decelartion time (test code = 6863220483) 0.15 s MV Peak E Evette (test code = 3234934215) 106.2 cm/s E/A ratio (test code = 3704069100) ratio LVOT stroke volume (test code = 0425512005) 48.30 cm3 LVOT peak eevtte (test code = 2488965555) 78.4 cm/s LVOT mn grad (test code = 9621130235) mmHg AV LVOT peak gradient (test code = 9101620395) mmHg LVOT peak VTI (test code = 1402399899) 14.7 cm LV V1 mean (test code = 9570975161) 51.40 cm/s Ao peak evette (test code = 2835485585) 154.7 cm/s AV area peak evette (test code = 3439829717) 1.7 cm2 Ao max PG (test code = 2402865882) 9.60 mm[Hg] AV peak gradient (test code = 8352849001) mmHg AV regurgitation pressure 1/2 time (test code = 2327663490) 257.3 ms AI dec slope (test code = 2078976760) 498.10 cm/s2 AI max evette (test code = 2895728486) 437.60 cm/s AI max PG (test code = 3840973578) 77.80 mm[Hg] Tapse (test code = 5218055920) 2.19 cm LA Volume Index (BP) (test code = 7404096816) 32.0 mL/m2 LA volume (BP) (test code = 1570285421) 62.1 mL LAV(MOD-sp2) (test code = 4067653332) 52.70 mL A4C EF (test code = 2864093634) 44.80 % EF(sp4-el) (test code = 7256117135) 45.20 % SV(MOD-sp4) (test code = 6181475444) 71.20 mL SV(sp4-el) (test code = 8505392246) 73.90 mL LV Diastolic Volume (BP) (test code = 4101600482) 146.3 mL A2C EF (test code = 3851032757) 52.00 % EF(MOD-bp) (test code = 0288724300) 46.70 % EF(sp2-el) (test code = 7238760162) 52.40 % LV Systolic Volume (BP) (test code = 8655206541) 77.9 mL SV(MOD-bp) (test code = 9526276138) 68.40 mL SV(MOD-sp2) (test code = 0296173337) 69.20 mL EF (test code = 8151225213) Left Ventricular Stroke Volume by 2-D Biplane-MOD (test code = 4474228) 68.4 mL Radiology Study observation (narrative) (test code = 04236-1) LYNDSAY (test code = LYNDSAY) ?Left?Ventricle: Left [...] performed. [facility]KEPPR[facility] (LEVETIRACETAM)2022-04-14 16:48:36* Test Item Value Reference Range Interpretation Comme nts JUSTINEPPRA (test code = 6597809638) 12-46 L LYNDSAY (test code = LYNDSAY) Therapeutic range: 12-46 ?g/mL ? ?Toxic: Not well established.Test developed and characteristics determined by [facility] Laboratory Services. Lab Interpretation (test code = 93995-3) Abnormal [facility] HospitalBasi Metabolic Panel (Na, K, Cl, CO2, Glucose, BUN, Creatinine, Ca)2022-04-14 10:50:11* Test Item Value Reference Range Interpretation Comme nts NA (test code = 4074866285) 136 mmol/L 135-145 K (test code = 0230482311) 3.8 mmol/L 3.5-5 CL (test code = 4838952484) 105 mmol/L 98-108 CO2 TOTAL (test code = 6049670856) 25 mmol/L 23-31 AGAP (test code = 6457201691) 2-16 BUN (test code = 8480008186) 9 mg/dL 7-23 GLUCOSE (test code = 6578720148) 101 mg/dL 70-110 CREATININE (test code = 7707096181) 0.66 mg/dL 0.5-1.04 CALCIUM (test code = 8071524336) 8.1 mg/dL 8.6-10.6 L eGFR (test code = 1439434771) mL/min/1.73m2 LYNDSAY (test code = LYNDSAY) Association [...] imaging tests). Lab Interpretation (test code = 74526-9) Abnormal [facility] HospitalMagensium, [id number] 10:50:11* Test Item Value Reference Range Interpretation Comme nts MAGNESIUM (test code = 9115581747) 1.9 mg/dL 1.7-2.4 Lab Interpretation (test cod e = 75867-8) Normal [facility] HospitalThyroid Stimulating Iniftjl3015-39-65 22:21:44 * Test Item Value Reference Range Interpretation Comme nts TSH (test code = 3090677707) See_Comment Biotin has been reported to cause a negative bias, interpret results relative to patient's use of biotin. [Automated message] The system which generated this result transmitted reference range: 0.45 - 4.70 mIU/L. The reference range was not used to interpret this result as normal/abnormal. Lab Interpretation (test code = 02383-3) Normal [facility] HospitalGLYCOSYLATED HEMOGLOBIN (A1C)2022-04-13 21:53:43* Test Item Value Reference Range Interpretation Comme nts HGB A1C (test code = 4548-4) 5.8 % 4-5.7 H LYNDSAY (test code = LYNDSAY) Reference RangesNormal: <5.7%Prediabetes: 5.7 - 6.4%Diabetes: > 6.5% Lab Interpretation (test code = 86610-3) Abnormal [facility] HospitalFASTING LIPID PANEL (10519)(TOTAL CHOLESTEROL, TRIGLYCERIDES, HDL)2022-04-13 21:34:53* Test Item Value Reference Range Interpretation Comme nts CHOL (test code = 5504034080) 201 mg/dL 120-200 H HDL (test code = 7901584581) 56 mg/dL See_Comment [Automated [employer]] The system which generated this result transmitted reference range: >=50. The reference range was not used to interpret this result as normal/abnormal. HDLC RATIO (test code = 0241997861) See_Comment [Automated [employer]] The system which generated this result transmitted reference range: <=4.5. The reference range was not used to interpret this result as normal/abnormal. TRIG (test code = 5329384495) 355 mg/dL 30-170 H LDL CHOL (test code = 54975-7) 74 mg/dL See_Comment [[employer]ated [employer]] The system which generated this result transmitted reference range: <=160. The reference range was not used to interpret this result as normal/abnormal. VLDL (test code = 3083614455) 71 mg/dL 5-60 H Lab Interpretation (test code = 32152-2) Abnormal [facility] HospitalTroponin I - Code Cxmljd8188-63-78 18:46:27* Test Item Value Reference Range Interpretation Comments TROPONIN I (test code = 5686843230) 0.013 ng/mL See_Comment [Automated message] The system [...] of biotin. Lab Interpretation (test code = 66406-5) Normal [facility] HospitalBasi Metabolic Panel (NA, K, CL, CO2, Glucose, BUN, Creatinine, CA) - Code Xndpvs6468-61-71 18:35:07* Test Item Value Reference Range Interpretation Comme nts NA (test code = 9660730359) 136 mmol/L 135-145 K (test code = 2564689128) 4.3 mmol/L 3.5-5 CL (test code = 3085185371) 105 mmol/L 98-108 CO2 TOTAL (test code = 0858883937) 27 mmol/L 23-31 AGAP (test code = 6716974837) 2-16 BUN (test code = 3973639606) 8 mg/dL 7-23 GLUCOSE (test code = 6952150670) 130 mg/dL 70-110 H CREATININE (test code = 3192960818) 0.75 mg/dL 0.5-1.04 CALCIUM (test code = 6669750754) 8.5 mg/dL 8.6-10.6 L eGFR (test code = 5724016724) mL/min/1.73m2 LYNDSAY (test code = LYNDSAY) Association [...] imaging tests). Lab Interpretation (test code = 44518-4) Abnormal [facility] HospitalaPTT - Code Bidqcv2311-72-50 18:32:46* Test Item Value Reference Range Interpretation Comme nts APTT Patient (test code = 3173-2) See_Comment [Automated message] The system which generated this result transmitted reference range: 23 - 38 Seconds. The reference range was not used to interpret this result as normal/abnormal. LYNDSAY (test code = LYNDSAY) The [facility] patient population mean normal value for aPTT is 30 seconds. Lab Interpretation (test code = 03453-6) Normal [facility] HospitalProthrombin Time / INR - Code Rvoglt4116-86-13 18:30:45* Test Item Value Reference Range Interpretation Comme [facility] PROTIME PATIENT (test code = 5964-2) See_Comment [Automated messa ge] The system which generated this result transmitted reference range: 12.0 - 14.7 Seconds. The reference range was not used to interpret this result as normal/abnormal. INR (test code = 6301-6) Normal INR <1.1; Warfarin Therapeutic range 2.0 to 3.0 or 2.5 to 3.5, depending upon the indications. Lab Interpretation (test code = 08214-1) Normal [facility] HospitalCBC without Diff - Code Jyfkov9867-30-82 18:23:07* Test Item Value Reference Range Interpretation [...] result as normal/abnormal. MPV (test code = 60995-3) 8.1 fL 9.5-12.9 L RDW-CV (test code = 788-0) 16.1 % 12-15.5 H RDW-SD (test code = 45291-1) 49.2 fL 39-49.9 NRBC x10^3 (test code = 0213836091) See_Comment [Automated [employer]] The system which generated this result transmitted reference range: 10*3/?L. The reference range was not used to interpret this result as normal/abnormal. NRBC/100 WBC (test code = 6379710423) See_Comment [Automated [employer]] The system which generated this result transmitted reference range: 0.0 - 10.0 /100 WBCs. The reference range was not used to interpret this result as normal/abnormal. IPF % (test code = 2557014786) Lab Interpretation (test code = 15480-1) Abnormal [facility] [id number] 21:06:40* Test Item Value Reference Range Interpretation Comments TROPONIN I (test code = 7978278053) 0.005 ng/mL See_Comment [Automated message] The system [...] of biotin. Lab Interpretation (test code = 77613-9) Normal [facility]. METABOLIC PANEL (14828)2021-11-23 20:55:42* Test Item Value Reference Range Interpretation Comme nts NA (test code = 5278134062) 137 mmol/L 135-145 K (test code = 2190298506) 4.3 mmol/L 3.5-5.0 CL (test code = 8379285591) 104 mmol/L 98-108 CO2 TOTAL (test code = 6990367201) 22 mmol/L 23-31 L AGAP (test code = 4428020660) 2-16 BUN (test code = 5668131325) 15 mg/dL 7-23 GLUCOSE (test code = 1060712643) 114 mg/dL 70-110 H CREATININE (test code = 5738264135) 0.68 mg/dL 0.50-1.04 TOTAL BILI (test code = 4725593673) 0.5 mg/dL 0.1-1.1 CALCIUM (test code = 7411182145) 9.1 mg/dL 8.6-10.6 T PROTEIN (test code = 0047180554) 7.3 g/dL 6.3-8.2 ALBUMIN (test code = 5543955185) 4.4 g/dL 3.5-5.0 ALK PHOS (test code = 3034152655) 243 U/L 34-122 H ALTv (test code = 1742-6) 24 U/L 5-35 AST(SGOT) (test code = 6960978626) 30 U/L 13-40 eGFR (test code = 6126753456) mL/min/1.73m2 LYNDSAY (test code = LYNDSAY) Association [...] imaging tests). Lab Interpretation (test code = 10399-1) Abnormal [facility]LIPASE20[facility] 20:55:22* Test Item Value Reference Range Interpretation Comme nts LIPASE (test code = 3573775021) 96 U/L 0-220 Lab Interpretation (test cod e = 54171-4) Normal [facility] HospitalPOCT [id number] 20:46:00* Test Item Value Reference Range Interpretation Comme nts POCT PREG (test code = 1605) negative On board controls acceptable with C Line (test code = 3574) present POCT PREG LOT # (test code = 3575) [id number] POCT PREG TEST DATE ( test code = 3576) 04/18/2023 Lab Interpretation (test cod e = 66902-2) Normal [facility] HospitalCBC WITH [id number] 20:40:38* Test Item Value Reference Range Interpretation Comme nts WBC (test code = 6690-2) See_Comment [Automated [employer]] The system which generated this result transmitted reference range: 4.30 - 11.10 10*3/?L. The reference range was not used to interpret this result as normal/abnormal. RBC (test code = 789-8) See_Comment [Automated [employer]] The system which generated this result [...] 31.8 g/dL 31.6-35.1 RDW-SD (test code = 08618-7) 53.7 fL 39.0-49.9 H RDW-CV (test code = 788-0) 17.2 % 12.0-15.5 H PLT (test code = 777-3) See_Comment H [Automated messa ge] The system which generated this result transmitted reference range: 166 - 358 10*3/?L. The reference range was not used to interpret this result as normal/abnormal. MPV (test code = 60167-3) 8.5 fL 9.5-12.9 L NRBC/100 WBC (test code = [id number]) See_Comment [Automated [employer]] The system which generated this result transmitted reference range: 0.0 - 10.0 /100 WBCs. The reference range was not used to interpret this result as normal/abnormal. NRBC x10^3 (test code = [id number]) <0.01 See_Comment [Automated messa ge] The system which generated this result transmitted reference range: 10*3/?L. The reference range was not used to interpret this result as normal/abnormal. GRAN MAT (NEUT) % (test code = 770-8) 53.7 % IMM GRAN % (test code = 7403112144) 0.90 % LYMPH % (test code = 736-9) 32.6 % MONO % (test code = 5905-5) 10.1 % EOS % (test code = 713-8) 1.5 % BASO % (test code = 706-2) 1.2 % GRAN MAT x10^3(ANC) (test code = 8275722164) 4.98 10*3/uL 1.88-7.09 IMM GRAN x10^3 (test code = 6948866466) 0.08 10*3/uL 0.00-0.06 H LYMPH x10^3 (test code = 731-0) 3.02 10*3/uL 1.32-3.29 MONO x10^3 (test code = 742-7) 0.94 10*3/uL 0.33-0.92 H EOS x10^3 (test code = 711-2) 0.14 10*3/uL 0.03-0.39 BASO x10^3 (test code = 704-7) 0.11 10*3/uL 0.01-0.07 H Lab Interpretation (test code = 53439-0) [facility] 20:17:33* Test Item Value Reference Range Interpretation Comme [facility] POCT GLU (test code = 2567317676) 111 mg/dL 70-110 H Notified Provide r Lab Interpretation (test code = 54667-6) [facility]normal [facility], THINPREP, [id number] 00:00:00 * Test Item Value Reference Range Interpretation Comme nts SOURCE: (test code = 8001) Endocervical SLIDES: (test code = 8011) 1 LMP: (test code = 8021) 06/03/2021 SPECIMEN ADEQUACY: (test code = 43514) (NOTE) INTERPRETATION: (test code = 05438) ASCUS/EPITH. ABNORMALITY; SEE BELOW HEATER OPERATOR HELPER: (test code = 8101) CHANA Thacker(ASCP)IAC PATHOLOGIST INTERPRETATION BY: (test code = 8122) Nahid Russell M.D. LOCATION: (test code = 62538) (NOTE) CPT: (test code = 8140) (NOTE) PAP TEST, THINPREP, [id number] 00:00:00* Test Item Value Reference Range Interpretation Comme nts SOURCE: (test code = 8001) Endocervical SLIDES: (test code = 8011) 1 LMP: (test code = 8021) 06/03/2021 SPECIMEN ADEQUACY: (test code = 01589) (NOTE) INTERPRETATION: (test code = 65460) ASCUS/EPITH. ABNORMALITY; SEE BELOW HEATER OPERATOR HELPER: (test code = 8101) CHANA Thacker(ASCP)IAC PATHOLOGIST INTERPRETATION BY: (test code = 8122) Nahid Russell M.D. LOCATION: (test code = 44179) (NOTE) CPT: (test code = 8140) (NOTE) HPV HIGH RISK WITH GENOTYPE, [id number] 00:00:00* Test Item Value Reference Range Interpretation Comme nts HPV HIGH RISK INTERP (test c ode = 78944) POSITIVE HPV 16 (test code = 41978) POSITIVE HPV 18 (test code = 68214) NEGATIVE HPV, HR, OTHER GENOTYPES (te st code = 47062) POSITIVE HPV HIGH RISK WITH GENOTYPE, [id number] 00:00:00* Test Item Value Reference Range Interpretation Comme nts HPV HIGH RISK INTERP (test c ode = 46033) POSITIVE HPV 16 (test code = 37517) POSITIVE HPV 18 (test code = 47911) NEGATIVE HPV, HR, OTHER GENOTYPES (te st code = 18531) POSITIVE [id number] 03:22:48* Test Item Value Reference Range Interpretation Comme nts APPEARANCE (test code = 5962613484) Hazy Clear A COLOR (test code = 7836505365) Yellow Yellow PH (test code = 4123061202) 4.8-8.0 SP GRAVITY (test code = 7455884875) 1.003-1.030 GLU U QUAL (test code = 5607729400) Normal Normal BLOOD (test code = 8833046641) Negative Negative Interference fro m ascorbic acid may cause false negative results. KETONES (test code = 0968865982) 5 mg/dL Negative A PROTEIN (test code = 2887-8) Negative Negative UROBILIN (test code = 6979085557) 4.0 mg/dL Normal A BILIRUBIN (test code = 7502854256) Negative Negative NITRITE (test code = 3577391000) Negative Negative LEUK GRUPO (test code = 7861893738) Negative Negative RBC/HPF (test code = 1766882671) See_Comment [Automated [employer] ge] The system which generated this result transmitted reference range: 0 - 3 HPF. The reference range was not used to interpret this result as normal/abnormal. WBC/HPF (test code = 2115246748) <1 See_Comment [Automated [employer] ge] The system which generated this result transmitted reference range: 0 - 5 HPF. The reference range was not used to interpret this result as normal/abnormal. BACTERIA (test code = 5842710359) Few Negative A SQ EPITH (test code = 7946688241) HPF Lab Interpretation (test code = 87146-4) [facility]normal [facility] 03:22:48* Test Item Value Reference Range Interpretation Comme nts APPEARANCE (test code = 3209655465) Hazy Clear A COLOR (test code = 6199505352) Yellow Yellow PH (test code = 1577317144) 4.8-8.0 SP GRAVITY (test code = 5216730821) 1.003-1.030 GLU U QUAL (test code = 1874007659) Normal Normal BLOOD (test code = 2116462273) Negative Negative KETONES (test code = 9579413914) 5 mg/dL Negative A PROTEIN (test code = 2887-8) Negative Negative UROBILIN (test code = 9219294443) 4.0 mg/dL Normal A BILIRUBIN (test code = 7411818555) Negative Negative NITRITE (test code = 9630885327) Negative Negative LEUK GRUPO (test code = 7958505360) Negative Negative RBC/HPF (test code = 0267733483) See_Comment [Automated [employer] ge] The system which generated this result transmitted reference range: 0 - 3 HPF. The reference range was not used to interpret this result as normal/abnormal. WBC/HPF (test code = 4193794111) <1 See_Comment [Automated [employer] ge] The system which generated this result transmitted reference range: 0 - 5 HPF. The reference range was not used to interpret this result as normal/abnormal. BACTERIA (test code = 6126054448) Few Negative A SQ EPITH (test code = 0894631902) HPF Lab Interpretation (test code = 90724-7) [facility]normal [facility] [id number] 02:45:00* Test Item Value Reference Range Interpretation Comments TROPONIN I (test code = 1593715152) 0.002 ng/mL See_Comment [Automated message] The system [...] of biotin. Lab Interpretation (test code = 06235-0) Normal [facility] [id number] 02:45:00* Test Item Value Reference Range Interpretation Comme nts TROPONIN I (test code = 5806067063) 0.002 ng/mL See_Comment [Automated [employer]] The system which generated this result transmitted reference range: <=0.034. The reference range was not used to interpret this result as normal/abnormal. LYNDSAY (test code = LYNDSAY) Lab Interpretation (test code = 16974-6) Normal [facility] [id number] 02:41:57* Test Item Value Reference Range Interpretation Comme nts NT-proBNP (test code = 4513925756) 169 pg/mL See_Comment H [Automated message] The system which generated this result transmitted reference range: <=125. The reference range was not used to interpret this result as normal/abnormal. LYNDSAY (test code = LYNDSAY) Biotin has been reported to cause a negative bias, interpret results relative to patient's use of biotin. Lab Interpretation (test code = 48163-6) Abnormal [facility] [id number] 02:41:57* Test Item Value Reference Range Interpretation Comme nts NT-proBNP (test code = 5100641824) 169 pg/mL See_Comment H [Automated [employer]] The system which generated this result transmitted reference range: <=125. The reference range was not used to interpret this result as normal/abnormal. LYNDSAY (test code = LYNDSAY) Lab Interpretation (test code = 24828-3) Abnormal [facility]. METABOLIC PANEL (92899)2021-03-17 02:09:13* Test Item Value Reference Range Interpretation Comme nts NA (test code = 0150636066) 137 mmol/L 135-145 K (test code = 4005663100) 4.2 mmol/L 3.5-5.0 CL (test code = 7088551761) 102 mmol/L 98-108 CO2 TOTAL (test code = 0908400654) 25 mmol/L 23-31 AGAP (test code = 1473881899) 2-16 BUN (test code = 8444074844) 18 mg/dL 7-23 GLUCOSE (test code = 3745655178) 144 mg/dL 70-110 H CREATININE (test code = 8729662477) 0.77 mg/dL 0.50-1.04 TOTAL BILI (test code = 4852750052) 0.4 mg/dL 0.1-1.1 CALCIUM (test code = 3302341386) 8.9 mg/dL 8.6-10.6 T PROTEIN (test code = 0315840011) 6.8 g/dL 6.3-8.2 ALBUMIN (test code = 3835794782) 3.9 g/dL 3.5-5.0 ALK PHOS (test code = 0414066178) 84 U/L 34-122 ALTv (test code = 1742-6) 13 U/L 5-35 AST(SGOT) (test code = 0029304202) 17 U/L 13-40 eGFR (test code = 0775269806) mL/min/1.73m2 LYNDSAY (test code = LYNDSAY) Association [...] imaging tests). Lab Interpretation (test code = 48543-5) Abnormal [facility]. METABOLIC PANEL (60673)2021-03-17 02:09:13* Test Item Value Reference Range Interpretation Comme nts NA (test code = 2563390303) 137 mmol/L 135-145 K (test code = 7980526159) 4.2 mmol/L 3.5-5.0 CL (test code = 2429657337) 102 mmol/L 98-108 CO2 TOTAL (test code = 2715680308) 25 mmol/L 23-31 AGAP (test code = 7804481564) 2-16 BUN (test code = 0959910368) 18 mg/dL 7-23 GLUCOSE (test code = 0828244830) 144 mg/dL 70-110 H CREATININE (test code = 1940666759) 0.77 mg/dL 0.50-1.04 TOTAL BILI (test code = 8842377392) 0.4 mg/dL 0.1-1.1 CALCIUM (test code = 3371077843) 8.9 mg/dL 8.6-10.6 T PROTEIN (test code = 9837629810) 6.8 g/dL 6.3-8.2 ALBUMIN (test code = 6649604827) 3.9 g/dL 3.5-5.0 ALK PHOS (test code = 0211491000) 84 U/L 34-122 ALTv (test code = 1742-6) 13 U/L 5-35 AST(SGOT) (test code = 1321199539) 17 U/L 13-40 eGFR (test code = 8786830226) mL/min/1.73m2 LYNDSAY (test code = LYNDSAY) Lab Interpretation (test cod e = 26317-1) Abnormal [facility] WITH [id number] 01:56:33* Test Item Value Reference Range Interpretation [...] g/dL 31.6-35.1 L RDW-SD (test code = 20626-7) 55.5 fL 39.0-49.9 H RDW-CV (test code = 788-0) 18.9 % 12.0-15.5 H PLT (test code = 777-3) See_Comment H [Automated messa ge] The system which generated this result transmitted reference range: 166 - 358 10*3/?L. The reference range was not used to interpret this result as normal/abnormal. MPV (test code = 65442-4) 8.2 fL 9.5-12.9 L NRBC/100 WBC (test code = 8872495529) See_Comment [Automated me ssage] The system which generated this result transmitted reference range: 0.0 - 10.0 /100 WBCs. The reference range was not used to interpret this result as normal/abnormal. NRBC x10^3 (test code = 8441455657) <0.01 See_Comment [Automated messa ge] The system which generated this result transmitted reference range: 10*3/?L. The reference range was not used to interpret this result as normal/abnormal. GRAN MAT (NEUT) % (test code = 770-8) 61.7 % IMM GRAN % (test code = 7870450983) 0.80 % LYMPH % (test code = 736-9) 28.5 % MONO % (test code = 5905-5) 6.3 % EOS % (test code = 713-8) 1.8 % BASO % (test code = 706-2) 0.9 % GRAN MAT x10^3(ANC) (test code = 6728150373) 7.31 10*3/uL 1.88-7.09 H IMM GRAN x10^3 (test code = 9126399936) 0.09 10*3/uL 0.00-0.06 H LYMPH x10^3 (test code = 731-0) 3.38 10*3/uL 1.32-3.29 H MONO x10^3 (test code = 742-7) 0.75 10*3/uL 0.33-0.92 EOS x10^3 (test code = 711-2) 0.21 10*3/uL 0.03-0.39 BASO x10^3 (test code = 704-7) 0.11 10*3/uL 0.01-0.07 H Lab Interpretation (test code = 21253-3) Abnormal [facility] WITH [id number] 01:56:33* Test Item Value Reference Range Interpretation [...] g/dL 31.6-35.1 L RDW-SD (test code = 82162-1) 55.5 fL 39.0-49.9 H RDW-CV (test code = 788-0) 18.9 % 12.0-15.5 H PLT (test code = 777-3) See_Comment H [Automated messa ge] The system which generated this result transmitted reference range: 166 - 358 10*3/?L. The reference range was not used to interpret this result as normal/abnormal. MPV (test code = 26156-6) 8.2 fL 9.5-12.9 L NRBC/100 WBC (test code = 8659633251) See_Comment [Automated [employer] ssage] The system which generated this result transmitted reference range: 0.0 - 10.0 /100 WBCs. The reference range was not used to interpret this result as normal/abnormal. NRBC x10^3 (test code = 7900196714) <0.01 See_Comment [Automated messa ge] The system which generated this result transmitted reference range: 10*3/?L. The reference range was not used to interpret this result as normal/abnormal. GRAN MAT (NEUT) % (test code = 770-8) 61.7 % IMM GRAN % (test code = 9829387472) 0.80 % LYMPH % (test code = 736-9) 28.5 % MONO % (test code = 5905-5) 6.3 % EOS % (test code = 713-8) 1.8 % BASO % (test code = 706-2) 0.9 % GRAN MAT x10^3(ANC) (test code = 4890281028) 7.31 10*3/uL 1.88-7.09 H IMM GRAN x10^3 (test code = 9741060882) 0.09 10*3/uL 0.00-0.06 H LYMPH x10^3 (test code = 731-0) 3.38 10*3/uL 1.32-3.29 H MONO x10^3 (test code = 742-7) 0.75 10*3/uL 0.33-0.92 EOS x10^3 (test code = 711-2) 0.21 10*3/uL 0.03-0.39 BASO x10^3 (test code = 704-7) 0.11 10*3/uL 0.01-0.07 H Lab Interpretation (test code = 28232-5) Abnormal [facility]-19 (ID NOW RAPID TESTING)2021-03-17 01:38:12* Test Item Value Reference Range Interpretation Comme nts SARS-CoV-2 Rapid ID NOW (test code = 56762-0) Not Detected Not Detected LYNDSAY (test code = LYNDSAY) ID NOW COVID-19 As say is an isothermal nucleic acid amplification test intended for the qualitative detection of nucleic acid from SARS-CoV-2 viral RNA in nasopharyngeal (REGISTERED NURSE FIRST ASSISTANT) specimens. It is used under Emergency [...] clinically indicated. Lab Interpretation (test code = 45377-5) Normal [facility]19 (ID NOW RAPID TESTING)2021-03-17 01:38:12* Test Item Value Reference Range Interpretation Comme nts SARS-CoV-2 Rapid ID NOW (raisa t code = 00108-0) Not Detected Not Detected LYNDSAY (test code = LYNDSAY) Lab Interpretation (test cod e = 80414-3) Normal [facility]19 (ID NOW RAPID TESTING)2021-02-19 17:42:45* Test Item Value Reference Range Interpretation Comme nts SARS-CoV-2 Rapid ID NOW (test code = 63344-0) Not Detected Not Detected LYNDSAY (test code = LYNDSAY) ID NOW COVID-19 As say is an isothermal nucleic acid amplification test intended for the qualitative detection of nucleic acid from SARS-CoV-2 viral RNA in nasopharyngeal (REGISTERED NURSE FIRST ASSISTANT) specimens. It is used under Emergency [...] clinically indicated. Lab Interpretation (test code = 43193-7) Normal [facility] PEL[facility] W [id number] 17:24:55Thickening of the gastric antrum and duodenal [...] Electronicallysigned by James Freeman at 02/19/2021 12:24 [facility]Urinalysis2021-08-03 17:03:40* Test Item Value Reference Range Interpretation Comme nts APPEARANCE (test code = 2895973183) Hazy Clear A COLOR (test code = 9034125716) Mabel Yellow A PH (test code = 3812069553) 4.8-8.0 SP GRAVITY (test code = 3612741296) 1.003-1.030 H GLU U QUAL (test code = 6544170494) Normal Normal BLOOD (test code = 1053877339) Negative Negative KETONES (test code = 7109345400) 5 mg/dL Negative A PROTEIN (test code = 2887-8) 30 mg/dL Negative A UROBILIN (test code = 9239857282) 4.0 mg/dL Normal A BILIRUBIN (test code = 4263585375) 4 mg/dL Negative A NITRITE (test code = 6206542190) Negative Negative LEUK GRUPO (test code = 9916081716) Negative Negative RBC/HPF (test code = 3106161468) See_Comment H [Automated messa ge] The system which generated this result transmitted reference range: 0 - 3 HPF. The reference range was not used to interpret this result as normal/abnormal. WBC/HPF (test code = 7941883804) See_Comment H [Automated messa ge] The system which generated this result transmitted reference range: 0 - 5 HPF. The reference range was not used to interpret this result as normal/abnormal. BACTERIA (test code = 0778804711) Few Negative A MUCOUS (test code = 5580958836) Moderate Negative LPF A SQ EPITH (test code = 6097902412) HPF CA OXALATE (test code = 6362310542) See_Comment H [Automated messa ge] The system which generated this result transmitted reference range: <=1 HPF. The reference range was not used to interpret this result as normal/abnormal. Ictotest (test code = 1792405882) Negative Lab Interpretation (test code = 75763-1) [facility] [id number] 16:34:55* Test Item Value Reference Range Interpretation Comme nts NA (test code = 8028662704) 139 mmol/L 135-145 K (test code = 0695358533) 4.3 mmol/L 3.5-5.0 CL (test code = 0337726381) 105 mmol/L 98-108 CO2 TOTAL (test code = 6185056719) 26 mmol/L 23-31 AGAP (test code = 8502780101) 2-16 BUN (test code = 5882500405) 11 mg/dL 7-23 GLUCOSE (test code = 9148571878) 95 mg/dL 70-110 CREATININE (test code = 1437899918) 0.70 mg/dL 0.50-1.04 TOTAL BILI (test code = 4089224154) 0.6 mg/dL 0.1-1.1 CALCIUM (test code = 7351928567) 8.9 mg/dL 8.6-10.6 T PROTEIN (test code = 3101810116) 7.7 g/dL 6.3-8.2 ALBUMIN (test code = 5074428147) 4.1 g/dL 3.5-5.0 ALK PHOS (test code = 5363791802) 79 U/L 34-122 ALTv (test code = 1742-6) 10 U/L 5-35 AST(SGOT) (test code = 2911001945) 22 U/L 13-40 eGFR (test code = 3028818588) mL/min/1.73m2 LYNDSAY (test code = LYNDSAY) Association [...] imaging tests). [facility] HospitalLip[facility], [id number] 16:34:14* Test Item Value Reference Range Interpretation Comme nts LIPASE (test code = 0999044431) 45 U/L 0-220 Lab Interpretation (test cod e = 44615-2) Normal [facility] with [id number] 16:21:12* Test Item Value Reference Range Interpretation Comme nts WBC (test code = 6690-2) See_Comment [Automated [employer]] The system which generated this result transmitted reference range: 4.30 - 11.10 10*3/?L. The reference range was not used to interpret this result as normal/abnormal. RBC (test code = 789-8) See_Comment [[employer]] The system which generated this result transmitted [...] g/dL 31.6-35.1 L RDW-SD (test code = 26039-6) 54.4 fL 39.0-49.9 H RDW-CV (test code = 788-0) 18.3 % 12.0-15.5 H PLT (test code = 777-3) See_Comment H [Automated messa ge] The system which generated this result transmitted reference range: 166 - 358 10*3/?L. The reference range was not used to interpret this result as normal/abnormal. MPV (test code = 18144-5) 8.5 fL 9.5-12.9 L NRBC/100 WBC (test code = 6382748403) See_Comment [Automated [employer] ssage] The system which generated this result transmitted reference range: 0.0 - 10.0 /100 WBCs. The reference range was not used to interpret this result as normal/abnormal. NRBC x10^3 (test code = 3796470582) <0.01 See_Comment [Automated [employer]] The system which generated this result transmitted reference range: 10*3/?L. The reference range was not used to interpret this result as normal/abnormal. GRAN MAT (NEUT) % (test code = 770-8) 78.3 % IMM GRAN % (test code = 6969616722) 0.40 % LYMPH % (test code = 736-9) 15.4 % MONO % (test code = 5905-5) 4.8 % EOS % (test code = 713-8) 0.1 % BASO % (test code = 706-2) 1.0 % GRAN MAT x10^3(ANC) (test code = 0025613557) 7.15 10*3/uL 1.88-7.09 H IMM GRAN x10^3 (test code = 5380323743) 0.04 10*3/uL 0.00-0.06 LYMPH x10^3 (test code = 731-0) 1.41 10*3/uL 1.32-3.29 MONO x10^3 (test code = 742-7) 0.44 10*3/uL 0.33-0.92 EOS x10^3 (test code = 711-2) <0.03 0.03-0.39 L BASO x10^3 (test code = 704-7) 0.09 10*3/uL 0.01-0.07 H Lab Interpretation (test code = 81967-8) Abnormal [facility] Consult Notes Date/Time Note Provider Source 2024-01-10 12:39:30 Associated Order(s): CONSULT CARDIOLOGY [facility] Cardiology Consult PCP: PATIENT DOES NOT HAVE A PCP Date of Service: 01/10/2024 CHIEF COMPLAINT/reason for consult: Chest pain HISTORY OF PRESENT ILLNESS This is a 53 years old female with past medical history of smoking, COPD, hypertension, obesity, nonobstructive coronary artery disease, systolic and diastolic heart failure, left ventricular thrombosis and pulm hypertension. She presented to [facility] emergency room with chest pain. She has [...] (chronic obstructive pulmonary disease) Diverticulitis Epilepsy Hypertension [place] (myocardial infarction) 07/20/2007 Slipped disc Stomach cancer Substance abuse Marijuana daily-for anxiety Past Surgical History: Procedure Laterality Date ANTERIOR CERVICAL FUSION CHOLECYSTECTOMY HAND/FINGER SURGERY UNLISTED Bilateral 3 L hand, 3 R hand METATARSAL OSTEOTOMY Right 08/14/2015 Surgeon: Luis Jones Jr., ESTHER; Location: [facility] TONSILLECTOMY Family History Problem Relation Age of [...] pulmonary disease) Obesity Coronary artery disease involving rampart coronary artery of rampart heart without angina pectoris Snores Cigarette smoker [...] further assistance. Kylee Montez MD, FACC, AMADOR Support Representative Division of Cardiovascular Medicine [facility] - Health 2023-12-15 08:28:19 Associated Order(s): CONSULT CARDIOLOGY [facility] Cardiology Consult PCP: PATIENT DOES NOT HAVE A PCP Date of Service: 12/15/2023 CHIEF COMPLAINT/reason for consult: Heart failure HISTORY OF PRESENT ILLNESS This is a 53 years old female with past medical history of smoking, COPD, hypertension, obesity, nonobstructive coronary artery disease, systolic and diastolic heart failure, left ventricular thrombosis and pulm hypertension. She presented to [facility] emergency room with dyspnea, chest pain and [...] (chronic obstructive pulmonary disease) Diverticulitis Epilepsy Hypertension [place] (myocardial infarction) 07/20/2007 Slipped disc Stomach cancer Substance abuse Marijuana daily-for anxiety Past Surgical History: Procedure Laterality Date ANTERIOR CERVICAL FUSION CHOLECYSTECTOMY HAND/FINGER SURGERY UNLISTED Bilateral 3 L hand, 3 R hand METATARSAL OSTEOTOMY Right 08/14/2015 Surgeon: Luis Jones Jr., ESTHER; Location: [facility] TONSILLECTOMY Family History Problem Relation Age of [...] pain, unspecified type Coronary artery disease involving rampart coronary artery of rampart heart without angina pectoris Snores Cigarette smoker [...] further assistance. Kylee Montez MD, FAC, AMADOR Support Representative Division of Cardiovascular Medicine [facility] [employer] 2023-11-27 14:57:00 Associated Order(s): CONSULT ADULT PHYSICAL THERAPY 11/27/2023 Physical therapy note: Duplicate consult. Sami Teran PT, DPT,CMSR Sami Teran PT [facility] 2023-11-25 10:16:00 Associated Order(s): CONSULT ADULT [...] (chronic obstructive pulmonary disease) Diverticulitis Epilepsy Hypertension [place] (myocardial infarction) 07/20/2007 Slipped disc Stomach cancer Substance abuse Marijuana daily-for anxiety PSH: Past Surgical History: Procedure Laterality Date ANTERIOR CERVICAL FUSION CHOLECYSTECTOMY HAND/FINGER SURGERY UNLISTED Bilateral 3 L hand, 3 R hand METATARSAL OSTEOTOMY Right 08/14/2015 Surgeon: Luis Jones Jr., DPM; Location: [facility] TONSILLECTOMY Prior Living Situation: lives with her [...] -Pain Management: Nursing Notified COMMUNICATION Primary Language: Kuwaiti Able to Verbalize needs: Yes Vision:good; no [...] Treatment Time in Minutes: 30 min Sami Teran PT, DPT,CMSR [facility] - Health History and Physical Notes Date/Time Note Provider Source 2024-01-09 22:04:15 [facility] Hospitalist Admission H&P Date of Service: 01/09/2024 CHIEF COMPLAINT: Patient with complaints of chest pain and a history of cardiomyopathy with left ventricular thrombus HISTORY OF PRESENT ILLNESS Heather Turner is a 53 year old female who presents with chest discomfort. Patient had extensive cardiac workup done recently at [facility]. At that time, patient was [...] a while. Patient recently started coming to [facility] as she had been going to [facility]. At this time, she will be admitted [...] (chronic obstructive pulmonary disease) Diverticulitis Epilepsy Hypertension [place] (myocardial infarction) 07/20/2007 Slipped disc Stomach cancer Substance abuse Marijuana daily-for anxiety Pseudoseizures PAST SURGICAL HISTORY Past Surgical History: Procedure Laterality Date ANTERIOR CERVICAL FUSION CHOLECYSTECTOMY HAND/FINGER SURGERY UNLISTED Bilateral 3 L hand, 3 R hand METATARSAL OSTEOTOMY Right 08/14/2015 Surgeon: Luis Jones Jr., DPM; [facility]: [facility] TONSILLECTOMY ALLERGIES Allergies Allergen Reactions Green Tea [...] edema versus atypical pneumonia. RL: [id number] AFC: [id number] End of report CHEST 1 VW Narrative [...] high risk of morbidity and mortality. 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 [...] (chronic obstructive pulmonary disease) Diverticulitis Epilepsy Hypertension AZ (myocardial infarction) 07/20/2007 Slipped disc Stomach cancer Substance abuse Marijuana daily-for anxiety Past Surgical History: Procedure Laterality Date ANTERIOR CERVICAL FUSION CHOLECYSTECTOMY HAND/FINGER SURGERY UNLISTED Bilateral 3 L hand, 3 R hand METATARSAL OSTEOTOMY Right 08/14/2015 Surgeon: Luis Jones Jr., ESTHER; Location: [facility] [place] TONSILLECTOMY Family History Problem Relation Age of [...] 116/82 115/78 Pulse: 80 90 Resp: 15 18 Temp: 36.9 ?C (98.4 ?F) 36.2 [...] On Eliquis Code Status: Full Code T [facility] EMERGENCY PHYSICIAN STAFF [facility] 2023-11-22 13:30:57 CCU Team Admit H&P [...] lumbar spinal stenosis, and depression presenting from [facility] ED due to SOB. Patient with NSTEMI [...] (chronic obstructive pulmonary disease) Diverticulitis Epilepsy Hypertension AZ (myocardial infarction) 07/20/2007 Slipped disc Stomach cancer Substance abuse Marijuana daily-for anxiety Prior to Admission medications Medication Sig Start Date End Date Taking? Authorizing Provider metoprolol succinate XL 25 mg 24 hr tablet Take 1 tablet by mouth every morning. 05/11/23 Yes Doctor Unassigned, [place] spironolactone 25 mg tablet Take 1 tablet by mouth in the morning and 1 tablet in the evening. 09/30/23 Yes Doctor Unassigned, [place] DULoxetine 30 mg capsule Take 1 capsule by mouth in the morning. Doctor Unassigned, [place] furosemide 20 mg tablet Take 1 tablet by mouth every morning and evening. Doctor Unassigned, [place] Lacosamide (VIMPAT) 100 mg tablet Take 1 tablet by mouth in the morning and 1 tablet in the evening. 12/11/22 Alfonso Alvarado, PAC methocarbamoL 500 mg tablet Take 2 [...] Wheezing or Shortness of Breath. 03/15/21 Lydia Desouza, ERP CONSULTANT dicyclomine 20 mg tablet Take 1 tablet by mouth 4 (four) times daily as needed for Abdominal pain. 02/19/21 Monroy, Estefania S, PAC proMETHazine 25 mg tablet Take 1 tablet by mouth every 6 (six) hours as needed for Nausea and Vomiting (N/V). 02/19/21 Estefania Monroy PAC ondansetron 4 mg tablet Take 4 mg by mouth every 8 (eight) hours as needed. Doctor Unassigned, [place] pantoprazole 40 mg EC tablet Take 40 mg by mouth daily. Doctor Unassigned, [place] amLODIPine (NORVASC) 10 mg tablet Take 1 Tab by mouth daily. 09/20/15 Kylee Montez MD carvedilol (COREG) 6.25 mg tablet Take 1 Tab by mouth 2 (two) times daily with meals. 09/20/15 Kylee Montez MD lisinopril (PRINIVIL,ZESTRIL) 40 mg tablet Take 1 Tab by mouth daily. 09/20/15 Kylee Montez MD loratadine (CLARITIN LIQUI-GEL) 10 mg capsule Take by mouth daily. Doctor Unassigned, [place] MULTIVITAMIN ORAL Take 1 Tab by mouth daily. Doctor Unassigned, [place] omega-3 fatty acids-vitamin E (FISH OIL) 1,000 mg capsule Take 1 g by mouth daily. Doctor Unassigned, [place] Allergies Allergen Reactions Green Tea Other - See comments Seizures Diclofenac Hypertension Keppra [Levetiracetam] Other - See comments Makes seizures worse Past surgical history: Past Surgical History: Procedure Laterality Date ANTERIOR CERVICAL FUSION CHOLECYSTECTOMY HAND/FINGER SURGERY UNLISTED Bilateral 3 L hand, 3 R hand METATARSAL OSTEOTOMY Right 08/14/2015 Surgeon: Luis Jones Jr., DPM; Location: [facility] [place] TONSILLECTOMY Allergies: Allergies Allergen Reactions Green Tea [...] Friends and Family: Not on file Attends Zoroastrianism Services: Not on file Active Member of [...] Otherwise, Sonographically unremarkable right upper quadrant. RL: [id number] HS:Y CHEST PULMONARY ANGIOGRAM Result Date: 11/22/2023 [...] consolidation or pleural effusion. No pneumothorax. RL: [id number] End of Report SSMENT/PLAN: Heather Turner is a 53 year old female admitted to the hospital with: Decompensated acute on chronic HFrEF 15-20% EF Cardiogenic shock NSTEMI Congestive hepatopathy Lactic acidosis LV thrombus HTN Iron deficiency anemia Patient in cardiogenic shock with lactic acidosis and congestive hepatopathy on milrinone and lasix. New LV thrombus identified on TTE, currently on heparin gtt. Negative Simpson Criteria. Blood cultures NGTD. Received cefepime 1 [...] ordering referrals and/or communicating with other health career technical education teacher (not separately reported), documenting clinical information in the electronic or other health record, and care coordination (not separately reported). 53 yo F with cardiogenic shock and PE Acute decompensated HFrEF NSTEMI Pulmonary embolism Polysubstance use LV thrombus COPD Elevated lactate- started on milrinone on 11/21 Continue milrinone Continue anticoagulation RHC/LHC today for BiV failure Cr Altamirano MD Casino Floor Runner [facility] Cardiology 11/23/23 [facility] [place] [employer] 2023-11-22 02:28:50 MEDICINE White H&P PCP: PATIENT DOES NOT HAVE A PCP Date of Service: 11/21/2023 CHIEF COMPLAINT: SOB History of Present Illness Heather Turner is a 53 year old female with a PMH significant for HFrEF (~35% 05/2023), HTN, Smoker, COPD, chronic low back pain, depression presenting from [facility] ED due to SOB. Pt states her home pulse ox was reading 86% and was having trouble catching her breath. Associated sx include PETERSON, orthopnea, CP that is substernal, pressure-like, and non radiating. She says the SOB started earlier today with productive cough. Denies fevers or chills. No recent sick contacts. States she was treated for pneumonia at [facility] 2 weeks ago with levaquin and prednisone [...] (chronic obstructive pulmonary disease) Diverticulitis Epilepsy Hypertension AZ (myocardial infarction) 07/20/2007 Slipped disc Stomach cancer Substance abuse Marijuana daily-for anxiety Past Surgical History: Procedure Laterality Date ANTERIOR CERVICAL FUSION CHOLECYSTECTOMY HAND/FINGER SURGERY UNLISTED Bilateral 3 L hand, 3 R hand METATARSAL OSTEOTOMY Right 08/14/2015 Surgeon: Luis Jones Jr., ESTHER; Location: [facility] [place] TONSILLECTOMY Family History Problem Relation Age of [...] Depakote - c/w flomax Pain UncontrolledTylenol and [place] Prophylaxis: DVT- heparin Stress Ulcer: pantoprazole Code [...] results to the patient. Ivis Mcdermott MD [employer] Department of Internal Medicine Division of Cardiovascular Disease [facility] Procedure Notes Date/Time Note Provider Source 2023-11-23 15:17:41 Left Heart Cath/Coronary Angiography Date of Service: 11/23/2023 3:18 PM Indication/Diagnosis: heart failure Consent source: self Consent type: indications/complications discussed with patient/legal guardian; written consent obtained Time out completed: yes Aseptic technique: Chlorprep Local Anesthesia: 1% lidocaine without epinephrine Sedation: fentanyl 50 mcg, Versed 2 mg Access site: right radial artery, RIJ Webster 4.0 5fr 8 Fr IJ sheath Kulm Rosalba Closure Method: TR Band, manual pressure [...] was present for the entire procedure. [facility] Associated attestation - Cris Molina MD - [...] of right sided failure. Cris Molina MD assistant professor of dietetics. Division of cardiovascular medicine [facility] IM-CARDIOVASCULAR DISEASE [facility] Notes Date/Time Note Provider Source 2024-04-03 [...] in no apparent distress, Alma Gould RN [facility] 2024-04-03 00:10:43 Report to Campbell CAMPOS. Ely Hernández RN [facility] 2024-04-02 22:25:58 Pt having seizure like activity as I walked in pt. Activity lasting about 40 seconds. Pt alert and able to answer questions immediately after activity. Yesenia Hightower RN [facility] 2024-04-02 20:44:51 Pt arrived via person with complaints of feeling like her heart failure was acting up and her pulse ox machine was reading 94% and Hr 61 at home which is low for her. Pt states she has had 6 seizures today. Was seen at [facility] and reports no test were performed and she was told it was all stress related. While waiting for triage pt daughter hollered out she was having a seizure. Pt was found on the ground, no seizure activity noted. No post ictal period. Pt was able to sit up and get into personal and was brought to TR10. Pt reports she defecated on herself. Daughter states she hit her head. Pt complaining of lower back pain. Pt A&Ox4. Pt reports being out of meds for a month d/t financial issues. [facility] 2024-01-12 23:59:33 Pt given printed and [...] in no apparent distress, Liliana Blair RN [facility] 2024-01-12 22:05:12 Pt states that she has been having chest pressure that started 2 hrs station captain, pt states she also was trying to get in the bed and she fell hitting her right arm, knee, and foot. 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 METABOLIC PANEL (84520) - Abnormal NA 140 135 - 145 [...] VW Cbc with Diff Comp. Metabolic Panel (84245) Troponin I Orders Placed This Encounter Medications [...] ED Physician in the absence of a raw sampler: yes Previous ECG: Previous ECG: Unavailable Interpretation: [...] Electronically signed by: Radha Wyatt MD 01/12/24 1684 [facility] 2024-01-12 16:22:00 TRANSITIONAL CARE MANAGEMENT ASSESSMENT 01/12/2024 Heather Turner [id number] Heather Turner is a 53 year old /White female was admitted on 01/09/24 to [facility] ICU. She was discharged on 01/10/24 with discharge disposition of HR- Routine Discharge. Admitting Physician: Darrick Altamirano Discharge Diagnosis: Hypotension No linked episodes TCM Ujn-effl-eu-face outreach documentation: Care Transition CM made f/u call to pt post-discharge x2. No response and call went to voicemail. CM left a discreet message with purpose of call and CM's call back information. Discharge Assessment Chart Assessed: 01/12/24 TCM Outreach Completed: 01/12/24 Future Appointments: Veronique Carrillo RN [facility] 2024-01-12 11:40:32 Care Transition CM made f/u call to pt post-discharge. No response and call went to voicemail. CM left a discreet message with purpose of call and CM's call back information. Veronique Carrillo RN, BSN Swing Saw Operator-Transitions of Care [phone] [facility] 2024-01-10 15:32:40 Problem: Discharge Planning Goal: [...] RN Outcome: Resolved 01/10/2024 1532 by Addis Batse RN Outcome: Adequate for discharge Problem: Pain [...] Outcome: Adequate for discharge Addis Bates RN [facility] 2024-01-10 15:32:28 Problem: Discharge Planning Goal: [...] in pain sensation Outcome: Adequate for discharge [facility] 2024-01-10 14:55:21 Problem: Discharge Planning Goal: [...] Outcome: Adequate for discharge Wayne Merrill RN [facility] 2024-01-10 01:16:51 Problem: Discharge Planning Goal: [...] in pain sensation Outcome: Progressing as expected Alexandria Walsh RN [facility] 2024-01-09 22:42:54 Patient admitted to IMU for diagnosis of pneumonia, elevated D-dimer, hypotension, chest pain. Patient agrees to admission, discussed plan of care with patient and family. Patient is awake, alert, oriented, resp reg unlabored, color appropriate for race, PIV intact x2. No adverse reaction to medications administered while in ED. Belongings with patient to unit. Report to BETH Reyez. [facility] 2024-01-09 22:35:43 Report given to BETH Reyez IMU [facility] 2024-01-09 20:04:51 Patent resting Sheri Harding RN [facility] 2024-01-09 16:09:08 Patient states: "I started having chest pain this morning" Reports history of AZ, blood clots in heart, lung and legs, CHF. Malinda Andres RN [facility] 2024-01-09 16:07:00 Associated Order(s): EKG-12 Lead ROUTINE ONCE Pre-Procedure Diagnose(s): Chest pain, unspecified type Post-Procedure Diagnose(s): Chest pain, unspecified type [facility] Emergency Department Note Patient Name: Heather Turner [...] SOB that started this morning. Hx of AZ, PE and CHF. She rated her pain [...] vomiting or diarrhea. History provided by: Patient bondactor machine operator used: No Past Medical History/Immunizations: Past Medical History: Diagnosis Date Anxiety Extreme Bipolar disorder Breast pain 09/18/2015 Cauda equina compression 11/21/2023 diagnosed 08/2023 Congestive heart failure 2021 COPD (chronic obstructive pulmonary disease) Diverticulitis Epilepsy Hypertension AZ (myocardial infarction) 07/20/2007 Slipped disc Stomach cancer [...] 08/14/2015 Surgeon: Luis Jones Jr., ESTHER; Location: [facility] TONSILLECTOMY Review of Systems: Review of Systems [...] TROPONIN I N-TERMINAL PRO-BNP COMP. METABOLIC PANEL (56832) D-DIMER Orders Placed This Encounter Medications aspirin tablet 325 mg morpHINE (4 mg/mL) injection 4 mg ondansetron (ZOFRAN (PF)) injection 4 mg First Provider Eval: ED Events Date/Time Event User Comments 01/09/241608 Medical Screening Begins OLENA DEL CASTILLO NP -- 01/09/241608 First Provider Evaluation OLENA DEL CASTILLO NP [...] ED Physician in the absence of a raw sampler: yes Previous ECG: Previous ECG: Compared to [...] SOB that started this morning. Hx of AZ, PE and CHF. She rated her pain [...] SOB that started this morning. Hx of AZ, PE and CHF. She rated her pain [...] and patient evaluation by RUBY Berman MD, [facility] Emergency Medicine [facility] 2023-12-17 10:18:53 Care Transitions Nurse TOMI made f/u call to patient post-discharge. No answer, call went to voicemail. CM left discreet message with CM's call back information. CM will try again at a later time. SUZY LindseyN, RN, CCRN Swing Saw Operator, Transitions of Care [email or web address] Jodi Berg RN [facility] 2023-12-15 10:45:32 Problem: Respiratory Function - [...] Outcome: Adequate for discharge Delaney Laird RN [facility] 2023-12-15 05:41:00 Problem: Respiratory Function - [...] Goal: Effective communication Outcome: Progressing as expected [facility] 2023-12-14 18:20:42 Patient admitted to [facility] ADC 2215 for diagnosis of shortness of breath. Patient agrees to admission, discussed plan of care with patient and family. Patient is awake, A&Ox4, RR even and unlabored on RA. Color appropriate for race. PIV intact x1. No adverse reaction to medications administered while in ED. Belongings with patient to unit. [facility] 2023-12-14 18:19:06 Nurse Report Report given to BETH Romero. Chief complaint, assessment findings, infusion verify and orders reviewed. Plan of care discussed with patient and both nurses. Patient/family members verbalized understanding. Lisette Murphy RN T [facility] 2023-12-14 14:54:55 Report given to Amy Murphy RN. Updated on patient's medical condition, history of present condition and plan of care. Leo Hyde RN [facility] 2023-12-14 13:30:46 Patient arrived in wheelchair with c/o shortness of breath starting this morning. Patient attempted to try her albuterol at home with no success. Patient attempt to feel better with husbands oxygen. Started to complaining of reproducible chest pain approximately 2 hours ago. Hx: CHF Lisette Murphy RN [facility] 2023-12-14 13:24:00 AdmissionCare Guideline: Chest Pain [...] care. AdmissionCare documentation entered by: [facility], 27th edition, Copyright ? 2022 [facility] All Rights Reserved. [id number]:00 [facility] 2023-12-03 18:26:32 Pt requesting to leave AMA, patient educated on risks, and benefits of leaving AMA. Patient continues to request to leave AMA. CCU notified of patients request. Patient educated on risk and benefits. AMA paperwork signed by patient. Duong Tello RN [facility] 2023-12-03 14:42:13 Problem: Respiratory Function - Impaired Goal: Adequate oxygenation Outcome: Progressing as expected Goal: Adequate work of breathing Outcome: Progressing as expected Problem: Falls, Risk of Goal: Absence of falls Outcome: Progressing as expected T [facility] 2023-12-02 17:16:35 Report to Rad with [facility], care transferred Sheri Tompkins RN [facility] 2023-12-02 16:47:06 Nurse Report Report given to Duong CAMPOS at [facility], Chief complaint, assessment findings, infusion verify and orders reviewed. Sheri Tompkins RN [facility] 2023-12-02 16:40:00 Pt tolerating bipap, updated on status, skinw/d [facility] 2023-12-02 16:09:00 Placed on bedpan [facility] 2023-12-02 16:08:24 Report to Turner CAMPOS. Ely Hernández RN [facility] 2023-12-02 13:01:55 Pt arrived via private car with c/o chest pain starting about 30 minutes station captain. 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 PT was recently admitted to [facility] ICU for PE, chf and [...] (chronic obstructive pulmonary disease) Diverticulitis Epilepsy Hypertension AZ (myocardial infarction) 07/20/2007 Slipped disc Stomach cancer [...] OSTEOTOMY Right 08/14/2015 Surgeon: Luis Jones Jr., [facility]; Location: [facility] TONSILLECTOMY Review of Systems: Review of Systems [...] 0.01 - 0.07 10*3/uL COMP. METABOLIC PANEL (38452) - Abnormal NA 138 135 - 145 [...] VW Cbc with Diff Comp. Metabolic Panel (02031) Troponin I N-Terminal Pro-Bnp BLOOD CULTURE SCREEN [...] ED Events Date/Time Event User Comments 12/02/23 0034 Medical Screening Begins CONNOR RENEE MD -- [...] interpretation with external provider(s): Dr. Simental of [facility] cardiology accepting to CCU. Risk [...] signed by: Connor Renee MD 12/02/23 1632 [facility] 2023-12-01 10:36:39 TRANSITIONAL CARE MANAGEMENT ASSESSMENT 12/01/2023 Heather Turner [id number] Heather Turner is a 53 year old /White female was admitted on 11/21/[address] She was discharged on 11/28/23 with discharge disposition of HR- Routine Discharge. Admitting Physician: Cr Altamirano Discharge Diagnosis: Decompensated acute on chronic HFrEF 15-20% EF Cardiogenic shock NSTEMI 2/2 stress induced cardiomyopathy 2/2 PE and drug use No linked episodes TCM Cfl-zgce-fw-face outreach documentation: Discharge Assessment Chart Assessed: 12/01/23 TCM Outreach Completed: 12/01/23 Do you have a few minutes to speak with me about how you are doing at home?: Yes (Eniot stated she feel ok) Discharge Instructions Do you understand your at-home instructions?: Yes Medications Have you filled your prescriptions and do you have them in your home? : No Medication Interventions?: (Patient stated she cannot afford the cost of $44. 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 to manager diesel .) Do you know how to take your medications?: Yes Supplies Did you receive applicable home medical supplies/equipment?: N/A Follow Up Appointment Has a follow up appointment been scheduled?: No May I assist with scheduling this appointment?: Patient has outside PCP (Patient stated she was told that her providers at at [facility] and will not be following [facility]) Do you have any questions about your [...] stated she has to follow up with [facility] clinics Do you understand your discharge instructions? Yes [...] activity): as tolerated Were you able to pharmacy picking technician all of your medications? No unable to [...] N/A Ensure they have contact info for [employer] company: na Have you received your DME? N/A [...] to the emergency room Madeline Mckinley RN [facility] 2023-11-30 10:41:04 TRANSITIONAL CARE MANAGEMENT ASSESSMENT 11/30/2023 Heather Turner [id number] Heather Turner is a 53 year old /White female was admitted on 11/21/[address] She was discharged on 11/28/23 with discharge disposition of HR- Routine Discharge. Admitting Physician: Cr Altamirano Discharge Diagnosis: Decompensated acute on chronic HFrEF 15-20% EF Cardiogenic shock NSTEMI 2/2 stress induced cardiomyopathy 2/2 PE and drug use No linked episodes TCM Dem-ofvk-bh-face outreach documentation: Transition CM attempted to contact patient for post discharge follow up. CM left a message with male friend contact as he stated patient was asleep and not available. Future Appointments: Madeline Mckinley RN [facility] 2023-11-28 15:39:19 Problem: Bleeding, Risk of [...] Outcome: Adequate for discharge Aliyah Francisco RN [facility] 2023-11-27 14:00:02 Problem: Discharge Planning Goal: Adequate for discharge 11/27/2023 1359 by Merlyn Ndiaye RN Outcome: Progressing as expected 11/27/2023 09 by Merlyn Ndiaye, RN Outcome: Progressing as expected Problem: Bleeding, Risk of Goal: Absence of impaired coagulation signs and symptoms 11/27/2023 1359 by Merlyn Ndiaye, RN Outcome: Progressing as expected 11/27/2023 0951 by Merlyn Ndiaye, RN Outcome: Progressing as expected Goal: Absence of active bleeding 11/27/2023 135 by Merlyn Ndiaye RN Outcome: Progressing as expected 11/27/2023950 by Merlyn Ndiaye RN Outcome: Progressing as expected Problem: Activity Intolerance Goal: Improved activity tolerance 11/27/2023 135 by Merlyn dNiaye RN Outcome: Progressing as expected 11/27/2023950 by Merlyn Ndiaye RN Outcome: Progressing as expected Problem: Fluid Volume Excess Goal: Absence of fluid overload signs and symptoms 11/27/2023 135 by Merlyn Ndiaye RN Outcome: Progressing as expected 11/27/2023950 by Merlyn Ndiaye RN Outcome: Progressing as expected Problem: Fluid Volume Excess Goal: Absence of fluid overload signs and symptoms 11/27/20231358 by Merlyn Ndiaye RN Outcome: Progressing as expected 11/27/2023950 by Merlyn Ndiaye RN Outcome: Progressing as expected Problem: Pain Goal: Control of pain at or below patient's documented comfort goal 11/27/2023 135 by Merlyn Ndiaye RN Outcome: Progressing as expected 11/27/2023950 by Merlyn Ndiaye RN Outcome: Progressing as expected Goal: Reduction in pain sensation 11/27/20231358 by Merlyn Ndiaye RN Outcome: Progressing as expected 11/27/2023950 by Merlyn Ndiaye RN Outcome: Progressing as expected Problem: Skin integrity Impaired (Risk or Actual) Goal: Prevention of new skin breakdown 11/27/20231358 by Merlyn Ndiaye RN Outcome: Progressing as expected 11/27/2023950 by Merlyn Ndiaye RN Outcome: Progressing as expected Merlyn Ndiaye RN [facility] 2023-11-27 09:51:54 Problem: Bleeding, Risk of [...] new skin breakdown Outcome: Progressing as expected [facility] 2023-11-27 05:16:42 Problem: Bleeding, Risk of [...] new skin breakdown Outcome: Progressing as expected [facility] Mariely Wallace RN [facility] 2023-11-25 17:12:17 Problem: Bleeding, Risk of [...] new skin breakdown Outcome: Progressing as expected [facility] 2023-11-25 05:27:41 Problem: Bleeding, Risk of [...] Outcome: Progressing as expected Luda Vee RN [facility] 2023-11-24 18:52:11 Summary: [facility] Note Spoke with Rich Spencer from [facility] at 18:12. Case #[id number]. Brice Jackson RN [facility] 2023-11-24 10:16:03 Problem: Bleeding, Risk of [...] new skin breakdown Outcome: Progressing as expected [facility] 2023-11-23 10:41:53 Problem: Bleeding, Risk of [...] Brice Jackson RN Outcome: Progressing as expected [facility] 2023-11-23 10:40:04 Problem: Bleeding, Risk of [...] new skin breakdown Outcome: Progressing as expected [facility] 2023-11-22 05:54:04 Problem: Bleeding, Risk of [...] Outcome: Progressing as expected Hamlet Osullivan RN [facility] 2023-11-21 23:58:07 Patient transferred to [place] for diagnosis of chest pain, NSTEMI, COPD exacerbation Patient agrees to transfer/admit plan and verbalized understanding of plan of care, family aware of plan Patient awake alert, oriented, resp reg unlabored, skin w/d PIV patent, no s/s infiltration noted, heparin infusing No adverse reaction to medications given while in ED. Report given to [facility] personnel Nery Orellana RN [facility] 2023-11-21 23:55:09 Nurse Report Report given to BETH Zuleta in [place]. Chief complaint, assessment findings, infusion verify and orders reviewed. Plan of care discussed with nurse. Nery Orellana RN [facility] 2023-11-21 23:18:14 Associated Order(s): Critical Care [...] separately billable procedures and treating other patients. [facility] 2023-11-21 23:11:13 Pt c/o difficulty breathing at this time. Pt placed on 2L O2 NC for comfort. 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 ED Events Date/Time Event User [...] (chronic obstructive pulmonary disease) Diverticulitis Epilepsy Hypertension [place] (myocardial infarction) 07/20/2007 Slipped disc Stomach cancer Substance abuse Marijuana daily-for anxiety Tetanus received in last 5 years: Unknown Childhood immunizations: Up-to-date Past Surgical History Past Surgical History: Procedure Laterality Date ANTERIOR CERVICAL FUSION CHOLECYSTECTOMY HAND/FINGER SURGERY UNLISTED Bilateral 3 L hand, 3 R hand METATARSAL OSTEOTOMY Right 08/14/2015 Surgeon: Luis Jones Jr., DPM; Location: [facility] OR [facility] TONSILLECTOMY Allergies Allergies Allergen Reactions Green Tea [...] PLT ESTIMATE Normal Normal COMP. METABOLIC PANEL (37124) - Abnormal NA 134 (*) 135 - [...] consolidation or pleural effusion. No pneumothorax. RL: [id number] End of Report Orders and Treatments Orders Placed This Encounter Procedures Critical Care XR CHEST 1 VW CBC WITH DIFF COMP. METABOLIC PANEL (53739) AMYLASE TROPONIN I N-TERMINAL PRO-BNP URINALYSIS URINE [...] as of 11/21/232321 Sat November 21, 2023 231 Transfer initiated with PPC [DN] ED Course User Index [DN] Megan Rondon MD Diagnosis/Impression as of 11/21/232321 Chest pain, unspecified type Tachycardia Acute cough [...] exacerbation. She will be transferred down to [place] to the [place] team in the cardiology department for further [...] on file Megan Rondon Jr., MD Clinical Casino Floor Runner [facility] Emergency Department [employer] Dictation Software is used frequently and may produce errors. Promptly contact for obvious discrepancies. Megan Rondon MD 11/21/23 6532 [facility] 2023-09-11 11:34:02 Chief Complaint Patient presents with Follow-up Hospitalization Krissy Cannon LVN [facility] 2023-08-12 16:08:34 Bryan spoke to patient and patient decided to leave AMA. AMA form signed by patient and attached to paperwork. Patient in stable condition with AMA. IV line removed and patient was assisted onto wheelchair and moved to the [facility]. Patient called her prior to leaving room and will be picking up patient. ME Dumont RN [facility] 2023-08-12 15:56:21 Patient requesting to talk to provider - provider aware. Patient refused tylenol as she said medication does not improve her condition and she does not want to throw it up. Patient also refusing blood draw at this time. [facility] 2023-08-12 14:50:00 Patient's name and verified [...] (chronic obstructive pulmonary disease) Diverticulitis Epilepsy Hypertension [place] (myocardial infarction) 07/20/2007 Slipped disc Stomach cancer Substance abuse Marijuana daily-for anxiety Allergies noted in chart. Vitals obtained. Assessment performed. IV in place and patent. Placed on continuous spo2/cardiac monitoring, HR 106 Bed low and locked, secured with two rails, call light within reach. Belongings at bedside. Patient aware of plan of care. Steph Dumont RN [facility] 2023-08-12 14:17:22 Patient had witnessed seizure like activity. Bryan, DO at bedside. Patient stopped seizure activity and had no postictal phase. Patient coherent, alert and oriented/answering all questions appropriately. [facility] 2023-08-12 13:45:33 Patient here for chest pain that started approximately 1 hour ago. Patient had seizure like activity in the vehicle while attempting to get patient out of the car, patient had no post ictal phase. Patient c/o substernal chest pain and jaw pain. 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 METABOLIC PANEL (41224) - Abnormal NA 140 135 - 145 [...] Procedures Cbc with Diff Comp. Metabolic Panel (01649) Urinalysis Lactic Acid Whole Blood Troponin I [...] ED Course User Index [PS] Mj Bryan DO Diagnosis/Impression as of 08/12/23 1605 Seizure Chest [...] for follow-up Yehuda Arcos MD Specialty: PN-NEUROLOGY [facility] [address] [place] [id number] [facility]-Emergency Department Specialty: Emergency Medicine [address] [place] [id number] Instructions: If symptoms worsen as documented in the discharge Electronically signed by: Mj Bryan DO 08/12/23 1605 Mj Bryan DO 08/12/23 1605 [facility]
[2024-05-11 15:58] LABS: Absolute Basophils 0.1 K/uL (0-0.5); Absolute Eosinophils 0.1 K/uL (0-0.5); Absolute Lymphocytes (CBC) 2.6 K/uL (0.7-4.9); Absolute Monocytes 0.7 K/uL (0.1-1.3); Absolute Neutrophil 5.2 K/uL (1.8-8.0); Basophils % 1.2 % (0-1.3); Eosinophils % 1.4 % (0-4.4); Hemoglobin 12.3 g/dL (12.0-15.0); Lymphocytes % 29.4 % (15.3-44.8); MCH 25.8 pg (27.0-35.0); MCHC 32.4 g/dL (32.0-36.0); MCV 79.6 fL (80-100); MPV 6.2 fL (7.6-11.3); Platelets 540 thou/uL (152-406); RBC Red Blood Cell Count 4.77 M/uL (3.86-4.86); Red Cell Distribution Width 22.7 % (12.1-15.2)
[2024-05-11 16:18] LABS: SARS-CoV-2 Antigen CONTROL BLUE LINE VIS/BG OK; SARS-CoV-2 Antigen Rapid Res Negative (Negative)
[2024-05-11 16:24] LABS: Albumin/Globulin Ratio 0.7 (1.1-1.8); Alkaline Phosphatase 105 U/L (45-117); Anion Gap 9.6 mEq/L (5.0-15.0); BUN Blood Urea Nitrogen 8 mg/dL (7-18); Bicarbonate 24 mEq/L (21-32); Bilirubin Total 0.5 mg/dL (0.2-1.0); Globulin 4.3 g/dL (2.3-3.5); Glomerular Filtration Rate 108 ml/min (=/>90); Glucose Level 98 mg/dL (74-106); Lipase 23 U/L (13-75); Potassium 3.6 mEq/L (3.5-5.1); Protein, Total 7.3 g/dL (6.4-8.2); Sodium Level 139 mEq/L (136-145)
[2024-05-11 16:25] LABS: ALT/SGPT < 14 U/L (13-56); AST/SGOT < 10 U/L (15-37)
--- NOTE | 2024-05-11 17:33 | RAD REPORT ---
EXAMINATION: CT ABDOMEN AND PELVIS WITH CONTRAST CLINICAL INDICATION: Abdominal pain TECHNIQUE: CT abdomen and pelvis was performed, after the administration of 100 cc Isovue-300.. Sagit miya and coronal reconstructions were obtained. One or more of the following dose reduction techniques were used: Automated exposure control, adjustment of the mA and kV according to patient si ze, and iterative reconstruction. Unless otherwise specified, incidental findings do not require dedicated imaging follow-up. GQ1999. Oral contrast was not given which limits evaluation of bowel and appendix. COMPARISON: 2020 and 2023 FINDINGS: Mild fatty liver. Cholecystectomy The spleen, pancreas, right adrenal and left kidney unremarkable. Tiny right renal calculus. No hydronephrosis. . 27 mm left adrenal mass unchanged from 2020 consistent with an adenoma. An adnexal mass is not seen. Spondylosis L4-5 : IMPRESSION: No acute abnormality displayed
--- NOTE | 2024-05-11 17:35 | RAD REPORT ---
EXAMINATION: Pelvis Complete CLINICAL INDICATION: Pelvic pain TECHNIQUE: Real-time ultrasonography of the pelvis was performed transabdominally.. Color and spectra l Doppler evaluation of the ovaries was performed. The patient declined endovaginal sonogram. COMPARISON: No prior exam. Findings: The uterus measures 8 x 6 x 4 cm. Suboptimal evaluation of the endometrial stripe. Neither ovary seen secondary to overlying bowel gas. Right and left adnexa unremarkable. IMPRESSION: Very limited pelvic ultrasound without visualization of a gross abnormality.
[2024-05-11 18:12] LABS: Anisocytosis 1+; Band Neutrophils 1 % (0-1); Blood Morphology Comment NOT SEEN (NOT SEEN); Differential Total Cells Count 100; Lymphocytes 29 % (15-42); Microcytosis 1+; Monocytes 6 % (0-10); Platelet Estimate INCR; Segmented Neutrophils 64 % (40-80)
[2024-05-11] MEDS ORDERED: OSELTAMIVIR 75 MG CAP PO ONE (18:27)
--- NOTE | 2024-05-11 19:33 | ER ---
Nurse's Notes [facility] Name: Heather Coon Age: 54 yrs Sex: Female : 1970 Arrival Date: 05/11/2024 Time: 15:22 Bed 5 Private MD: Diagnosis: Abnormal uterine and vaginal bleeding, unspecified;Influenza due to other identified influenza virus with other respiratory manifestations Presentation: 05/11 15:29 Chief complaint: EMS states: Heavy vaginal bleeding since 04/27 and lower abdominal pain hb that became severe today. Coronavirus screen: At this time, the client does not indicate any symptoms associated with coronavirus-19. Ebola Screen: No symptoms or risks identified at this time. Initial Sepsis Screen: Does the patient meet any 2 criteria? No. Patient's initial sepsis screen is negative. Does the patient have a suspected source of infection? No. Patient's initial sepsis screen is negative. Risk Assessment: Do you want to hurt yourself or someone else? Patient reports no desire to harm self or others. Onset of symptoms was April 27, 2024. 15:29 Method Of Arrival: EMS: [facility] hb 15:29 Acuity: ANDER 3 hb Triage Assessment: 15:30 General: Appears distressed, obese, Behavior is cooperative, appropriate for age, bp anxious. Pain: Complains of pain in abdomen. GI: Reports lower abdominal pain. : Reports vaginal bleeding that is. 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 - Infectious Disease History:: Denies. - Social history:: Smoking status: Patient/guardian denies using tobacco. Screenin:01 [facility] ED Fall Risk Assessment (Adult) History of falling in the last 3 months, hb including since admission No falls in past 3 months (0 pts) Confusion or Disorientation No (0 pts) Intoxicated or Sedated No (0 pts) Impaired Gait No (0 pts) Mobility Assist Device Used No (0 pt) Altered Elimination No (0 pt) Score/Fall Risk Level 0 - 2 = Low Risk Oriented to surroundings, Maintained a safe environment, Educated pt \T\ family on fall prevention, incl call for assistance when getting out of bed. Abuse screen: Denies threats or abuse. Denies injuries from another. Nutritional screening: No deficits noted. Tuberculosis screening: No symptoms or risk factors identified. Assessment: 16:01 General: Appears in no apparent distress. uncomfortable, Behavior is cooperative, hb crying. 16:01 Neuro: Level of Consciousness is awake, alert, obeys commands, Oriented to person, hb place, time, situation. Cardiovascular: Patient's skin is warm and dry. Respiratory: Respiratory effort is even, unlabored, Respiratory pattern is regular, symmetrical. GI: Reports lower abdominal pain, upper abdominal pain, nausea. : Reports cramping, vaginal bleeding that is. EENT: No signs and/or symptoms were reported regarding the EENT system. Derm: Skin is pink, warm \T\ dry. Musculoskeletal: No signs and/or symptoms reported regarding the musculoskeletal system. 18:04 Reassessment: Patient appears in no apparent distress at this time. Patient and/or family updated on plan of care and expected duration. Pain level reassessed. Patient is alert/active/playful, equal unlabored respirations, skin warm/dry/pink. 18:41 Reassessment: Patient appears in no apparent distress at this time. No changes from previously documented assessment. Patient and/or family updated on plan of care and expected duration. Pain level reassessed. 19:05 Reassessment: Patient appears in no apparent distress at this time. Patient is alert, kj2 oriented x 3, equal unlabored respirations, skin warm/dry/pink. 20:16 GI: Bowel sounds present X 4 quads. Abd is non tender X 4 quads. kj2 Vital Signs: 15:29 BP 131 / 85; Pulse 102; Resp 18; Temp 100.1(O); Pulse Ox 98% on R/A; Weight 79.38 kg; hb Height 5 ft. 2 in. ; Pain 10/10; 16:30 BP 104 / 67; Pulse 83; Resp 15; Pulse Ox 98% on R/A; hb 18:41 BP 111 / 61; Pulse 77; Resp 17; Pulse Ox 94% on R/A; hb 19:05 BP 100 / 68; Pulse 82; Resp 18; kj2 20:14 BP 98 / 66; Pulse 78; Resp 18; Temp 97.9; Pulse Ox 100% on R/A; kj2 15:29 Body Mass Index 32.01 (79.38 kg, 157.48 cm) hb 15:29 Pain Scale: Adult hb ED Course: 15:29 Patient arrived in ED. hb 15:30 Chel Est[facility]an [facility]C [facility] kb 15:30 Jones Parham MD is Attending Physician. kb 15:31 Triage completed. hb 15:31 Arm band placed on. hb 15:35 Torrey Whittington, BETH is Primary Nurse. bp 15:45 Client placed on continuous cardiac and pulse oximetry monitoring. NIBP monitoring hb applied. manager monitoring on. Pulse ox on. NIBP on. 15:47 Initial lab(s) drawn, by me, sent to lab. COVID swab sent to lab. Flu and/or RSV swab bp sent to lab. Inserted saline lock: 20 gauge in right forearm, using aseptic technique. Blood collected. Flushed with 10 mL NS. 16:01 Patient has correct armband on for positive identification. Provided Education on: use hb of call light . 16:17 Patient taken to ultrasound. via stretcher. hb 16:20 US Pelvis Complete In Process Unspecified. EDMS 16:[address] via stretcher. hb 17:16 CT Abd/Pelvis - IV Contrast Only In Process Unspecified. EDMS 20:15 No provider procedures requiring assistance completed. IV discontinued, intact, kj2 bleeding controlled, No redness/swelling at site. Pressure dressing applied. Administered Medications: 15:47 Drug: Ondansetron IVP 4 mg IVP once; over 2 minutes Route: IVP; Site: right forearm; bp 16:22 Follow up: Response: No adverse reaction hb 15:47 Drug: morphine IVP or IV 4 mg IVP once over 4 mins Route: IVP; Infused Over: 4 mins; bp Site: right forearm; 16:22 Follow up: Response: No adverse reaction hb 17:30 Drug: morphine IVP or IV 4 mg IVP once over 4 mins Route: IVP; Infused Over: 4 mins; bp Site: right forearm; 18:31 Follow up: Response: No adverse reaction bp 18:31 Drug: Oseltamivir PO 75 mg PO once Route: PO; bp 19:15 Follow up: Response: No adverse reaction kj2 Medication: 16:01 VIS not applicable for this client. hb Outcome: 19:32 Discharge ordered by . rn 20:15 Condition: stable kj2 20:15 Discharged to home ambulatory, kj2 20:15 Discharge instructions given to patient, Instructed on discharge instructions, follow up and referral plans. medication usage, Demonstrated understanding of instructions, follow-up care, medications, Prescriptions given X 2, 20:17 Patient left the ED. vc1 Signatures: Dispatcher [employer] EDMS Chel Esteban, CHIEF MEDICAL TECHNOLOGIST-C CHIEF MEDICAL TECHNOLOGIST-CkJones Johnson MD MD rn Baxter, Heather, RN RN Torrey Whittington RN RN bp Calcote, Vanessa, RN RN vc1 Paola Ramirez RN RN kj2
--- NOTE | 2024-05-11 19:33 | EDPHYS ---
Physician Documentation [facility] Name: Heather Coon Age: 54 yrs Sex: Female : 1970 Arrival Date: 05/11/2024 Time: 15:22 Bed 5 Private MD: ED Physician Jones Parham HPI: 05/11 16:04 This 54 yrs old Female presents to ER via EMS with complaints of Abdominal Pain, rn Vaginal Bleeding. 16:04 The patient presents with vaginal bleeding that is. Onset: The symptoms/episode rn began/occurred 2 week(s) ago. Modifying factors: The symptoms are alleviated by nothing, the symptoms are aggravated by nothing. Severity of symptoms: At their worst the symptoms were moderate, in the emergency department the symptoms are unchanged. The patient has not experienced similar symptoms in the past. Patient reports here for 2 problems. 1 she started with vaginal bleeding 2 weeks ago, with clot. States normally very regular and has not had heavy vaginal bleeding in the past. Also reports feeling sick with cough and congestion, noted to have a temperature here of 100.1. Has COPD. Denies any new shortness of breath or hemoptysis. Reports suprapubic abdominal pain and cramping.. 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 - Infectious Disease History:: Denies. - Social history:: Smoking status: Patient/guardian denies using tobacco. ROS: 16:05 Constitutional: Positive for fever and chills ENT: Positive for nasal congestion rn Respiratory: Positive for cough, negative for shortness of breath Abdomen/GI: Positive for suprapubic abdominal pain : Positive for vaginal bleeding MS/Extremity: Negative for injury and deformity, Neuro: Positive for generalized weakness Exam: 16:05 Constitutional: Disheveled, malodorous Head/Face: Normocephalic, atraumatic. ENT: rn Dry mucous membranes Neck: No meningismus Cardiovascular: Tachycardic, regular. No pulse deficits. Respiratory: Speaking full sentences, unlabored. No increased work of breathing, no retractions or nasal flaring. Abdomen/GI: Soft, suprapubic tenderness without peritoneal signs MS/ Extremity: Pulses equal, no cyanosis. Neuro: Awake and alert, GCS 15 Vital Signs: 15:29 BP 131 / 85; Pulse 102; Resp 18; Temp 100.1(O); Pulse Ox 98% on R/A; Weight 79.38 kg; hb Height 5 ft. 2 in. ; Pain 10/10; 16:30 BP 104 / 67; Pulse 83; Resp 15; Pulse Ox 98% on R/A; hb 18:41 BP 111 / 61; Pulse 77; Resp 17; Pulse Ox 94% on R/A; hb 19:05 BP 100 / 68; Pulse 82; Resp 18; kj2 20:14 BP 98 / 66; Pulse 78; Resp 18; Temp 97.9; Pulse Ox 100% on R/A; kj2 15:29 Body Mass Index 32.01 (79.38 kg, 157.48 cm) hb 15:29 Pain Scale: Adult hb MDM: 15:30 Medical Screening Exam initiated kb 19:28 Differential diagnosis: dysmenorrhea, malignancy, menometrorrhagia, menorrhea, Neoplasm rn uterine fibroids, flu. Data reviewed: vital signs, nurses notes, lab test result(s), radiologic studies, CT scan, ultrasound, and as a result, I will discharge patient. Counseling: I had a detailed discussion with the patient and/or guardian regarding the historical points, exam findings, and any diagnostic results supporting the discharge/admit diagnosis, lab results, radiology results, the need for outpatient follow up, to return to the emergency department if symptoms worsen or persist or if there are any questions or concerns that arise at home. Response to treatment: the patient's symptoms have mildly improved after treatment, and as a result, I will discharge patient. ED course: No acute findings and vaginal ultrasound. optical engineering technician thought may be fibroid but no comment on radiology read. Patient is still having regular periods so likely not malignancy but will have her follow-up with gynecology for further evaluation. Patient has normal H\T\H. Flu positive which explains her fever. Has 2 separate problems, neither of which require emergent admission to the hospital. 05/11 15:35 Order name: CBC with Diff; Complete Time: 18:19 rn 05/11 15:35 Order name: CMP; Complete Time: 17:21 rn 05/11 15:35 Order name: Lipase; Complete Time: 17:21 rn 05/11 15:35 Order name: Flu; Complete Time: 17:21 rn 05/11 15:35 Order name: SARS RAPID; Complete Time: 17:21 rn 05/11 18:08 Order name: Manual Differential; Complete Time: 18:19 EDMS 05/11 15:35 Order name: CT Abd/Pelvis - IV Contrast Only; Complete Time: 18:19 rn 05/11 15:37 Order name: US Pelvis Complete; Complete Time: 18:19 rn 05/11 15:35 Order name: IV Saline Lock; Complete Time: 15:47 rn 05/11 15:35 Order name: Labs collected and sent; Complete Time: 15:47 rn Administered Medications: 15:47 Drug: Ondansetron IVP 4 mg IVP once; over 2 minutes Route: IVP; Site: right forearm; bp 16:22 Follow up: Response: No adverse reaction hb 15:47 Drug: morphine IVP or IV 4 mg IVP once over 4 mins Route: IVP; Infused Over: 4 mins; bp Site: right forearm; 16:22 Follow up: Response: No adverse reaction hb 17:30 Drug: morphine IVP or IV 4 mg IVP once over 4 mins Route: IVP; Infused Over: 4 mins; bp Site: right forearm; 18:31 Follow up: Response: No adverse reaction bp 18:31 Drug: Oseltamivir PO 75 mg PO once Route: PO; bp 19:15 Follow up: Response: No adverse reaction kj2 Disposition Summary: 05/11/24 19:32 Discharge Ordered Notes: Location: Home rn Problem: new rn Symptoms: have improved rn Condition: Stable rn Diagnosis - Abnormal uterine and vaginal bleeding, unspecified rn - Influenza due to other identified influenza virus with other respiratory rn manifestations Followup: rn - With: Private Physician - When: As needed - Reason: Recheck today's complaints, Re-evaluation by your physician Discharge Instructions: - Discharge Summary Sheet rn - Influenza, Adult rn Forms: - Medication Reconciliation Form rn - Antibiotic foundry patternmaker - Prescription Opioid Use rn - Patient Portal Instructions rn - Leadership Thank You Letter rn Prescriptions: - ondansetron 4 mg Oral Tablet,disintegrating - take 1 tablet ORAL route every 8 hours As needed; 10 tablet; Refills: 0, rn Product Selection Permitted - Tamiflu 75 mg Oral capsule - take 1 tablet ORAL route every 12 hours for 5 days; 10 tablet; Refills: 0, rn Product Selection Permitted Signatures: Dispatcher [employer] EDChel Lobo, MANAGER TRAINEE-C MANAGER TRAINEE-Jones Wu MD MD rn Baxter, Heather, RN RN Torrey Haney RN RN Paola Soriano RN kj2
[2024-05-12 04:27] VITALS: BP 98/66; TEMP 97.9; O2SAT 100
== END 2024-05-11 20:17 | disposition home or self-care (01) ==
LOC: ER 15:22
DX: J10.1 Influenza due to other identified influenza virus with other respiratory manifestations (principal); N93.9 Abnormal uterine and vaginal bleeding, unspecified; Z11.52 Encounter for screening for COVID-19
CPT/HCPCS: 85025; 36415; 83690; 80053; 87804 ×2; 74177; 76856; 96375; 96374; 99285; 87811; Q9967; J2405

== ENCOUNTER 2024-05-27 12:39 | Emergency (ER) | payer OTHER ==
--- OUTSIDE RECORDS SUMMARY | 2024-05-27 13:00 | XMS REPORT | Continuity of Care Document ---
Author Name Unknown Address [address] [facility] [place] [address] [facility]connect Address [address] [facility] [place] [address] Care Team Providers Care Yarder Puncher Name Role Phone Alina Aneta SUAREZ Primary Care Physician [phone] PANKAJ OBREGON Attending Clinician Un available AYDEE GO Attending Clinician Unavailable MARIANELA BURGESS Attending Clinician UnavailADAM Moreno Attending Clinician Unavailable THOMAS LOZOYA Attending Clinician Nina MARIAH Quiroga Attending Clinician Unavailable GUSTAVO DELANEY Attending Clinician Unavailable CHRISSY MOHR Attending Clinician Unavailable CHRISSY MOHR Attending Clinician Unavailable Chrissy Mohr DO Attending Clinician [phone] MD GERRY Attending Clinician Unavailab le Doctor Unassigned, [place] Attending Clinician U chelsi ZAVALAKATJA MORALES Attending Clinician Unavailab RADHA Vargas Attending Clinician Unavailable RADHA WYATT Attending Clinician Unavailable Gerardo CAMPOS, Veronique Olivia Attending Clinician [phone] DARRICK ALTAMIRANO Attending Clinician Unavailabl itz Del Castillo PRODUCTION OPERATIONS MANAGER, Olena Attending Clinician [phone] Alfonso Lopez Attending Clinician [phone] Lisandra ELIZONDO, Darrick Suarez. Attending Clinician [phone] Morena CAMPOS, Jodi Gonzalez Attending Clinician Unavail able TAL BENAVIDEZ Attending Clinician Unavailable Mj Bryan DO Attending Clinician [phone] Tal Benavidez MD Attending Clinician [phone] MOJGAN SIMENTAL Attending Clinician Unav arianna Renee MD, Connor Suarez Attending Clinician + [phone] Kamille ELIZONDO, Mojgan Mueller Attending Clinician + Madeline Mckinley RN Attending Clinician Unavailab MADELINE Edwards Attending Clinician Unavailable MADELINE PIERRE Attending Clinician Unavailable Megan Rondon MD Attending Clinician [phone] Altamirano MD Attending Clinician [phone] Lorenzo Ventura MD, Ivis Attending Clinician [phone] Nola ELIZONDO, Ryder Joshi Attending Clinici an AARON LEDESMA Attending Clinician Unavailable Tracy ELIZONDO, Cris Attending Clinician +[phone] EFRA BABCOCK Attending Clinician Un available MYLA LIEBERMAN Attending Clinician Unavailable JUANY GREEN Attending Clinician Unavailable CINDI, TIFFANY Attending Clinician Unavaila SIDDHARTH Kaye Attending Clinician UnavailMARGOT Dexter Attending Clinician Unavailable SARAI JULES Attending Clinician Unavaila YONATAN Juarez Attending Clinician UnaEDWARD Sneed Attending Clinician Unavailable Nir ELIZONDO, [place] Olivia Attending Clinician Unavailab monroe Obregon MD, Pankaj Attending Clinician +[phone] Altamirano Edward KRAFT Attending Clinician [phone] Bud ELIZONDO, Edward Attending Clinician [phone] DEMETRIUS TOBAR Attending Clinician Unavailab QUIN Armenta Attending Clinician Unavail able Kael PRODUCTION OPERATIONS MANAGER, Quin R Attending Clinician [phone] MJ BRYAN Attending Clinician Unavailable Jenifer ELIZONDO, Marianela Hamilton Attending Clinician [phone] Abbi ELIZONDO, Aydee Attending Clinician [phone] Provider, Not In System Attending Clinician Unav Dallas Allen Attending Clinician [phone] Jose ELIZONDO, Adam Attending Clinician [phone] Mercedez ELIZONDO, Harry Attending Clinician +[phone] Rocael ELIZONDO, Antwon Attending Clinician Unavailab Yue Booth MD Attending Clinician [phone] Connie Davey MD Attending Clinician [phone] Jasen ELIZONDO, Mariah Attending Clinician [phone] Valerio ELIZONDO, Thomas Reddy Attending Clinician + [phone] CONNIE DAVEY Attending Clinician UnavailAlfonso Oh Attending Clinician Unavailable RITCHIE WARREN Attending Clinician Unavailable Ritchie Warren MD Attending Clinician +[phone] Rk CAMPOS, Margot Stoner Attending Clinician +[phone] PARRISH DIANE Attending Clinician Unavaila yaya Mendoza MD, Halima Hummel Attending Clinician +[phone] Ning Geller MD Attending Clinician +[phone] Parrish Diane MDthia Attending Clinici an DAMI LOWRY Attending Clinician Unavailable Essence ELIZONDO, Dami Attending Clinician [phone] Maria Teresa Nicole LVN Attending Clinician + [phone] CHANTEL BOJORQUEZ Attending Clinician CHANTEL Kelly Attending Clinician Jack Ibrahim MD, Brandyn Otoole Attending Clinician [phone] SELINA MARTINES Attending Clinician Unavailable Sapna Vargas DO Attending Clinician + [phone] Tyrel ELIZONDO, Glory Katz Attending Clinician + Selina Martines MD Attending Clinician [phone] Vaccine, Tupman Dangelo Attending Clinician U chelsi Pak MD, Jose Attending Clinician +[phone] JOSE PAK Attending Clinician Unavailable WILLIAMS VIRK Attending Clinician Unavaila ble Sully REFERRAL MANAGEMENT LIAISON, Williams F Attending Clinician [phone] Miky Nava RN Attending Clinician Unavailab monroe Chakraborty REFERRAL MANAGEMENT LIAISONFabrice Otoole Attending Clinician [phone] Deo REFERRAL MANAGEMENT LIAISONLydia Attending Clinician [phone] Unknown, Attending Attending Clinician Unavailab le UNKNOWN, ATTENDING Attending Clinician Unavailab Estefania Berg Attending Clinician [phone] Yehuda Arcos MD Attending Clinician [phone] PANKAJ OBREGON Admitting Clinician Un available MARIANELA BURGESS Admitting Clinician Unavailab ADAM Cabrera Admitting Clinician Unavailable MARIAH ALDRIDGE Admitting Clinician Unavailable CHRISYS MOHR Admitting Clinician Unavailable RADHA WYATT Admitting Clinician Unavailable DARRICK ALTAMIRANO Admitting Clinician UnavailDarrick Geiger MD Admitting Clinician [phone] TAL BENAVIDEZ Admitting Clinician Unavailable Tal Benavidez MD Admitting Clinician [phone] MOJGAN SIMENTAL Admitting Clinician Unav ailable Mojgan Simental MD Admitting Clinician + CR ALTAMIRANO Admitting Clinician Unavailable CONNIE DAVEY Admitting Clinician UnavailAlfonso Oh Admitting Clinician Unavailable RITCHIE WARREN Admitting Clinician Unavailable NING GELLER Admitting Clinician Unavaila ble DAMI LOWRY Admitting Clinician Unavailable Dami Lowry MD Admitting Clinician [phone] BRANDYN IBRAHIM Admitting Clinician Unavailable Brandyn Ibrahim MD Admitting Clinician [phone] GLORY ESTEVES Admitting Clinician Unav ailable WILLIAMS VIRK Admitting Clinician Unavaila ble Payers Payer Name Policy Type Policy Number Effective Date Expirati on Date Source [facility] CYNTHIA VORA [id number] 2023 00:00:00 ISA RICARDO [id number] 2023 00:00:00 [facility] W/ CYNTHIA VELASQUEZ [id number] 2023 00:00:00 2023 00:00:00 [facility] SESAR OVIEDO COPAY FOCUS 9 [id number] 2023 00:00:00 MEDICAID PENDING PENDING 2022 00:00:00 Problems Condition Name Condition Details Condition Category Status Onset Date Resolution Date Last Treatment Date Treating Clinician Comments Source 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 systolic and diastolic congestive heart failure Disease Active 01-09 00:00: 00 [facility] Hypotensio n Hypotensio n Disease Active 01-08 00:00: 00 [facility] LV (left ventricula r) mural thrombus LV (left ventricula r) mural thrombus Disease Active 12-14 00:00: 00 [facility] Pulmonary hypertensi on Pulmonary hypertensi on Disease Active 12-14 00:00: 00 [facility] Shortness of breath Shortness of breath Disease Active -27 00:00: 00 [facility] Other chest pain Other chest pain Disease Active 5-15 00:00: 00 [facility] Depression Depression Disease Active 09-29 00:00: 00 [...] leg weakness Disease Active 2022-07 00:00: 00 [facility] Bilateral leg weakness Bilateral leg weakness Disease Active 2022-07 00:00: 00 [facility] Pneumonia Pneumonia Disease Active 2022-07 00:00: 00 [facility] Cavitary lesion of lung Cavitary lesion of lung Disease Active 2022-07 00:00: 00 [facility] Cervical myelopathy Cervical myelopathy Disease Recurre nce 2022-07 00:00: 00 [facility] Cervical disc disorder with myelopathy , high cervical region Cervical disc disorder with myelopathy , high cervical region Disease Active 2022-07 00:00: 00 [facility] Cord compressio n Cord compressio n Disease Recurre nce - 00:00: 00 [facility] Cauda equina compressio n Cauda equina compressio n Disease Active 911 00:00: 00 [facility] Seizure Seizure Disease Recurre aze 1-14 00:00: 00 [facility] Cardiomyop athy Cardiomyop athy Disease Active 08-01 00:00: 00 [facility] NSVT (nonsustai keisha ventricula r tachycardi a) NSVT (nonsustai keisha ventricula r tachycardi a) Disease Active 08-01 00:00: 00 [facility] Elevated brain natriureti c peptide (BNP) level Elevated brain natriureti c peptide (BNP) level Disease Active 07-31 00:00: 00 [facility] Chest pain, unspecifie d type Chest pain, unspecifie d type Disease Active 07-31 00:00: 00 [facility] Elevated brain natriureti c peptide (BNP) level Elevated brain natriureti c peptide (BNP) level Disease Active 07-31 00:00: 00 [facility] Coronary artery disease involving [place] tribe coronary artery of [place] tribe heart without angina pectoris Coronary artery disease involving [place] tribe coronary artery of [place] heart without angina pectoris Disease Active 07-31 00:00: 00 [facility] Snores Snores Disease Active 07-31 00:00: 00 [facility] Cigarette smoker Cigarette smoker Disease Active 07-31 00:00: 00 [facility] Primary hypertensi on Primary hypertensi on Disease Active 07-31 00:00: 00 [facility] Other hyperlipid emia Other hyperlipid emia Disease Active 07-31 00:00: 00 [facility] Coronary artery disease involving [place] coronary artery of [place] heart without angina pectoris Coronary artery disease involving [place] tribe coronary artery of [place] tribe heart without angina pectoris Disease Active 07-31 00:00: 00 [facility] Chronic bilateral low back pain with bilateral sciatica Chronic bilateral low back pain with bilateral sciatica Disease Active 2021-07 0-17 00:00: 00 [facility] 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 Disease Active 04-15 00:00: 00 [facility] Neuroforam inal stenosis of cervical spine Neuroforam inal stenosis of cervical spine Disease Active 04-15 00:00: 00 [facility] Stroke-lik e symptoms Stroke-lik e symptoms Disease Active 04-13 00:00: 00 [facility] Bipolar disorder, in partial remission, most recent episode manic Bipolar disorder, in partial remission, most recent episode manic Disease Active 09-27 00:00: 00 [facility] Neuroforam inal stenosis of lumbar spine Neuroforam inal stenosis of lumbar spine Disease Active 09-27 00:00: 00 [facility] Bilateral acute otitis media, recurrence not specified, unspecifie d otitis media type Bilateral acute otitis media, recurrence not specified, unspecifie d otitis media type Disease Active 09-27 00:00: 00 [facility] Lumbar spinal stenosis Lumbar spinal stenosis Disease Active 09-27 00:00: 00 [facility] Right-side d low back pain with sciatica, sciatica laterality unspecifie d Right-side d low back pain with sciatica, sciatica laterality unspecifie d Disease Active 09-27 00:00: 00 [facility] Generalize d anxiety disorder Generalize d anxiety disorder Disease Active 09-27 00:00: 00 [facility] Agoraphobi a Agoraphobi a Disease Active 09-27 00:00: 00 [facility] Bipolar disorder, in partial remission, most recent episode manic Bipolar disorder, in partial remission, most recent episode manic Disease Active 09-27 00:00: 00 [facility] Obsessive compulsive disorder Obsessive compulsive disorder Disease Active 09-27 00:00: 00 [facility] Breast mass, left Breast mass, left Disease Active 09-17 00:00: 00 [facility] Anxiety Anxiety Disease Active 09-17 00:00: 00 [facility] Lower back pain Lower back pain Disease Active 09-17 00:00: 00 [facility] High blood pressure High blood pressure Disease Active 09-17 00:00: 00 [facility] COPD (chronic obstructiv e pulmonary disease) COPD (chronic obstructiv e pulmonary disease) Disease Active 09-17 00:00: 00 [facility] Obesity Obesity Disease Active 09-17 00:00: 00 [facility] Breast pain Breast pain Disease Resolve d 09-17 00:00: 00 2015-09-18 00:00:00 2015-09-18 13:19:09 [facility] Allergies, Adverse Reactions, Alerts Allergy Name Allergy Type Status Severity Reaction(s) Onset Date Inactive Date Treating Clinician Comments Source Fluoxeti ne Propensi ty to adverse reaction s Active 03-29 00:00: 00 [facility] Green Tea Drug Allergy Active Other (See Comments) 03-29 00:00: 00 Seizure like activity [facility] Levetira cetam Drug Allergy Active Nausea And Vomiting 0 9- 00:00: 00 Intensifi es seizure [facility] FLUOXETI NE Allergy Active 0 - 00:00: 00 [facility] GREEN TEA Allergy Active High Other 2022-0 9- 00:00: 00 [facility] LEVETIRA CETAM Allergy Active High N\\T\\V 0 - 00:00: 00 [facility] Green Tea Propensi ty to adverse reaction s Active 0 - 00:00: 00 Seizure like activity [facility] Levetira cetam Propensi ty to adverse reaction s Active Nausea And Vomiting 03-29 00:00: 00 Intensifi es seizure [facility] LEVETIRA CETAM DRUG INGREDI Active Other-Cmnt 0 11-17 00:00: 00 [facility] Levetira cetam Propensi ty to adverse reaction s Active Other - See comments 0 - 00:00: 00 Makes seizures worse [facility] Levetira cetam Propensi ty to adverse reaction s Active Other 0 11-17 00:00: 00 Intensifi es seizure Makes seizures worse Makes seizures worse Intensifi es seizure Cynthia Seybold - Externa l FLUOXETI NE Allergy Active Med Rash 2022-0 1-14 00:00: 00 [facility] Fluoxeti ne Propensi ty to adverse reaction s Active Rash 2022-0 1-14 00:00: 00 [facility] Green Tea Propensi ty to adverse reaction s Active 0 1-14 00:00: 00 [facility] GREEN TEA Allergy Active 0 1-14 00:00: 00 [facility] Fluoxeti ne Propensi ty to adverse reaction s Active Unknown - See comments - 00:00: 00 [facility] FLUOXETI NE DRUG INGREDI Active Unknown-Cmnt 0 - 00:00: 00 [facility] DICLOFEN AC DRUG INGREDI Active HYPERTENSION -04 00:00: 00 [facility] Diclofen ac Propensi ty to adverse reaction s Active Anxiety 11-20 00:00: 00 Cynthia Garcia - Externa l GREEN TEA DRUG INGREDI Active Med Other-Cmnt 08-10 00:00: 00 [facility] Green Tea Propensi ty to adverse reaction s to drug Active Other - See comments 08-10 00:00: 00 Seizures [facility] Green Tea Propensi ty to adverse reaction s Active Anxiety 08-10 00:00: 00 Seizure like activity Seizures Seizures Seizure like activity Cynthia Garcia - Externa l FLUOXETI NE HCL DRUG INGREDI Active Hives 03-19 00:00: 00 [facility] Fluoxeti ne Hcl Propensi ty to adverse reaction s Active Hives 03-19 00:00: 00 [facility] Family History Family Member Diagnosis Comments Start Date Stop Date Sourc e Natural mother Alcohol abuse [facility] Natural mother Cancer [facility] Natural mother Diabetes [facility] Natural mother Heart disease [facility] Natural mother Hyperlipidemia [facility] Natural mother Kidney disease [facility] Natural mother Stroke [facility] Natural mother Alcohol abuse [facility] Natural mother Stroke [facility] Paternal uncle Diabetes [facility] Social History Social Habit Start Date Stop Date Quantity Comments Source History SDOH Alcohol Frequency [facility] History SDOH Alcohol Std Drinks [facility] History SDOH Alcohol Binge [facility] History SDOH Housing Homeless Last Year [facility] History of tobacco use Passive smoker [facility] History SDOH Social Connections Get Together [facility] History SDOH Social Connections [facility] History SDOH Social Connections Membership [facility] History SDOH Social Connections Meetings [facility] Sexual orientation [facility] Alcoholic beverage intake 2024-04-02 00:00:00 2024-04-02 00:00:00 0 /d [facility] Education - What is the highest level of school you have completed or the highest degree you have received? 2023-09-30 00:00:00 2023-09-30 00:00:00 GED or equivalent Cynthia Garcia - External History of Social function 2023-08-03 00:00:00 2023-08-03 00:00:00 [facility] Alcohol intake 2023-06-02 00:00:00 2023-06-02 00:00:00 Current drinker of alcohol (finding) [facility] Exposure to SARS-CoV-2 (event) 2023-05-18 00:00:00 2023-05-28 07:28:00 Not sure [facility] History SDOH Housing Unable to Pay - In the last 12 months, was there a time when you were not able to pay the mortgage or rent on time? 2023-05-26 00:00:00 2023-05-26 00:00:00 Yes [facility] Cigarettes smoked current (pack per day) - Reported 2023-05-26 00:00:00 2023-05-26 00:00:00 [facility] Cigarette pack-years 2023-05-26 00:00:00 2023-05-26 00:00:00 [facility] Tobacco use and exposure 2023-05-26 00:00:00 2023-05-26 00:00:00 Smokeless tobacco non-user [facility] History SDOH Housing Places Lived 2023-03-30 00:00:00 2023-03-30 00:00:00 1 [facility] Alcohol Comment 2023-03-29 00:00:00 2023-03-29 00:00:00 2x a week [facility] History SDOH Social Connections Phone 2022-08-01 00:00:00 2022-08-01 00:00:00 5 [facility] History SDOH Social Connections Living 2022-08-01 00:00:00 2022-08-01 00:00:00 5 [facility] History SDOH Physical Activity DPW 2022-08-01 00:00:00 2022-08-01 00:00:00 0 [facility] History SDOH Physical Activity MPS 2022-08-01 00:00:00 2022-08-01 00:00:00 0 [facility] History SDOH Financial 2022-08-01 00:00:00 2022-08-01 00:00:00 3 [facility] History SDOH Food Worry 2022-08-01 00:00:00 2022-08-01 00:00:00 1 [facility] History SDOH Food Scarcity 2022-08-01 00:00:00 2022-08-01 00:00:00 1 [facility] History SDOH Transport Med 2022-08-01 00:00:00 2022-08-01 00:00:00 2 [facility] History SDOH Transport Non-Med 2022-08-01 00:00:00 2022-08-01 00:00:00 2 [facility] Sex Assigned At 1970 00:00:00 1970 00:00:00 [facility] Smoking Status Start Date Stop Date Source Smokes tobacco daily 2023-11-25 00:00:00 [facility] Never smoked tobacco Cynthia Garcia - External Ex-smoker 2023-05-26 00:00:00 2023-05-26 00:00:[address] [facility] Medications Ordered Medication Name Filled [...] to tolerate oral medication s? Yes [facility] valproate (DEPACON) 500 mg in D5W piggyback 04-03 03:30: 00 04-03 04:49 :00 No 500mg 500 mg, IV Piggyback, ONCE NOW, 1 dose, On 04/02/24 at 2245, Administer over 30 Minutes, 100 mL [facility] divalproex (DEPAKOTE) delayed release tablet 250 mg 04-03 03:15: 00 04-03 04:07 :00 No 250mg 250 mg, Oral, ONCE NOW, 1 dose, On 04/02/24 at 2215, [facility] ondansetron (ZOFRAN (PF)) injection 4 mg 04-03 02:30: 00 04-03 04:58 :00 No 4mg 4 mg, Slow IV Push, ONCE, 1 dose, On 04/02/24 at 2130, [facility] morpHINE (4 mg/mL) injection 4 mg 04-03 02:30: 00 04-03 04:58 :00 No 4mg 4 mg, Slow IV Push, ONCE, 1 dose, On 04/02/24 at 2130, STAT [facility] divalproex ER 500 mg 24 hr tablet 04-03 00:00: 00 Yes [id number] 1000mg Take 2 tablets by mouth every 12 (twelve) hours. [facility] KCL 20 mEq tablet 04-03 00:00: 00 04-09 04:59 :00 Yes [id number] 40meq Take 2 tablets by mouth in the morning for 5 days. [facility] LORazepam (ATIVAN) tablet 1 mg 01-12 04:00: 00 01-12 03:56 :00 No 1mg 1 mg, Oral, ONCE, 1 dose, On Thu01/12/24 at 2300, [facility] ondansetron (ZOFRAN (PF)) injection 8 mg 01-12 04:00: 00 01-12 03:55 :00 No 8mg 8 mg, Slow IV Push, ONCE, 1 dose, On Thu01/12/24 at 2300, [facility] morpHINE (4 mg/mL) injection 6 mg 01-12 04:00: 00 01-12 03:55 :00 No 6mg 6 mg, Slow IV Push, ONCE, 1 dose, On Thu01/12/24 at 2300, STAT [facility] mirtazapine (REMERON) tablet 15 mg 01-10 02:00: 00 Yes 15mg [facility] atorvastati n (LIPITOR) tablet 40 mg 01-10 02:00: 00 Yes 40mg [facility] MULTIVITAMI N ORAL 01-09 15:56: 06 Yes 1{tbl} Take 1 Tab by mouth daily. [facility] omega-3 fatty acids-vitam in E (FISH OIL) 1,000 mg capsule 01-09 15:56: 06 Yes 1g Take 1 g by mouth daily. [facility] loratadine (CLARITIN LIQUI-GEL) 10 mg capsule 01-09 15:56: 06 Yes Take by mouth daily. [facility] metoprolol succinate XL 50 mg 24 hr tablet 01-09 15:56: 06 01-09 00:00 :00 No 50mg Take 1 tablet by mouth in the morning. [facility] KCL (KLOR-CON M20) tablet 40 mEq 01-09 15:45: 00 01-09 17:43 :00 No 40meq 40 mEq, Oral, ONCE, 1 dose, On Thu01/10/24 at 1045, Routine [facility] ondansetron 4 mg tablet 01-09 14:46: 23 01-09 00:00 :00 No 4mg Take 1 tablet by mouth every 8 (eight) hours as needed for Nausea and Vomiting (N/V). [facility] perflutren protein-A microsphr (OPTISON) injection 3 mL 01-09 14:15: 00 01-09 14:15 :00 No [id number] 3mL 3 mL, IV Push, ONCE, 1 dose, On Thu01/10/24 at 0915, Routine [facility] tamsulosin (FLOMAX) capsule 0.4 mg 01-09 14:00: 00 Yes .4mg 0.4 mg, Oral, DAILY, First dose on 01/10/24 at 0900, Until Discontinu ed, Routine [facility] metoprolol succinate XL (TOPROL XL) tablet 12.5 mg 01-09 14:00: 00 Yes 12.5mg [facility] DULoxetine (CYMBALTA) capsule 30 mg 01-09 14:00: 00 Yes 30mg 30 mg, Oral, DAILY, First dose on 01/10/24 at 0900, Until Discontinu ed, Routine [facility] digoxin (LANOXIN) tablet 125 mcg 01-09 14:00: 00 Yes 125ug 125 mcg, Oral, DAILY, First dose on 01/10/24 at 0900, Until Discontinu ed [facility] aspirin chewable tablet 81 mg 01-09 14:00: 00 Yes 81mg 81 mg, Oral, DAILY, First dose on 01/10/24 at 0900, Until Discontinu ed, Routine [facility] nicotine (NICODERM) 21 mg/24 hr patch 1 Patch 01-09 13:45: 00 Yes 1{patch } 1 Patch, Topical, Administer over 24 Hours, Q24H, First dose on 01/10/24 at 0845, Until Discontinu ed, Routine [facility] gabapentin (NEURONTIN) capsule 100 mg 01-09 13:00: 00 Yes 100mg 100 mg, Oral, TID, First dose on 01/10/24 at 0800, Until Discontinu ed, Routine [facility] divalproex (DEPAKOTE) delayed release tablet 1,000 mg 01-09 13:00: 00 Yes 1000mg 1,000 mg, Oral, Q12H, First dose on 01/10/24 at 0800, Until Discontinu ed, Routine [facility] cyclobenzap rine (FLEXERIL) tablet 5 mg 01-09 13:00: 00 Yes 5mg 5 mg, Oral, TID, First dose on 01/10/24 at 0800, Until Discontinu ed, Routine [facility] apixaban (ELIQUIS) tablet 5 mg 01-09 13:00: 00 02-27 12:59 :00 No [id number] 5mg 5 mg, Oral, BID, 98 doses, First dose on 01/10/24 at 0800, Last dose on 02/27/24 at 2000, Routine, Indication s: DVT/PE [facility] FENTanyl PF (SUBLIMAZE (PF)) injection 25 mcg 01-09 03:08: 20 01-10 03:07 :20 No 25ug 25 mcg, Slow IV Push, Q4HPRN, Starting on 01/09/24 at 2208, Until 01/10/24 at 2207, Routine, Pain (scale 7-10), Pain (scale 4-6) [facility] acetaminoph en (TYLENOL) tablet 650 mg 01-09 03:08: 07 Yes 650mg 650 mg, Oral, Q6HPRN, Starting on 01/09/24 at 2208, Until Discontinu ed, Routine, Pain (scale 1-3) [facility] ondansetron (ZOFRAN (PF)) injection 4 mg 01-09 02:45: 00 01-09 01:53 :00 No 4mg 4 mg, Slow IV Push, ONCE, 1 dose, On 01/09/24 at 2145, MICHAEL [facility] ipratropium -albuteroL (DUONEB) 0.5 mg-3 mg(2.5 mg base)/3 mL nebulizer solution 3 mL 01-09 02:45: 00 01-09 02:01 :00 No 3mL 3 mL, Inhalation , ONCE, 1 dose, On 01/09/24 at 2145, Routine [facility] cefTRIAXone (ROCEPHIN) 1,000 mg in NaCl 0.9% (NS) 100 mL MINI-BAG 01-09 02:30: 00 01-09 03:10 :00 No 1000mg 1,000 mg, IV Piggyback, ONCE, 1 dose, On 01/09/24 at 2130, Administer over 30 Minutes, 100 mL, Reason for Anti-Infec tive: Documented Infection, Documented Infection Site: Respirator y, Duration of Therapy: Once (ED) [facility] famotidine (PEPCID (PF)) injection 20 mg 01-09 01:45: 00 01-09 01:53 :00 No 20mg 20 mg, Slow IV Push, ONCE, 1 dose, On 01/09/24 at 2045, MICHAEL [facility] iopamidol (ISOVUE 370-500 mL) injection 90 mL 01-09 00:45: 00 01-09 00:45 :00 No [id number] 90mL 90 mL, Intravenou s, ONCE, 1 dose, On 01/09/24 at 1945, Routine [facility] atorvastati n 40 mg tablet 01-09 00:00: 00 Yes [id number] 20mg Take 0.5 tablets by mouth at bedtime. [facility] furosemide 40 mg tablet 01-09 00:00: 00 Yes [id number] 40mg Take 1 tablet by mouth every morning and evening. [facility] ipratropium -albuteroL 0.5 mg-3 mg(2.5 mg base)/3 mL nebulizer solution 01-09 00:00: 00 Yes [id number] 3mL Inhale 3 mL every 6 (six) hours as needed for Wheezing or Shortness of Breath. [facility] predniSONE 20 mg tablet 01-09 00:00: 00 01-15 04:59 :00 No [id number] 40mg Take 2 tablets by mouth in the morning for 5 days. [facility] FENTanyl PF (SUBLIMAZE (PF)) injection 50 mcg 01-08 22:45: 00 01-08 23:10 :00 No 50ug 50 mcg, Slow IV Push, ONCE, 1 dose, On 01/09/24 at 1745, STAT [facility] ondansetron (ZOFRAN (PF)) injection 4 mg 01-08 21:30: 00 01-08 21:47 :00 No 4mg 4 mg, Slow IV Push, ONCE, 1 dose, On Thu01/09/24 at 1630, MICHAEL [facility] aspirin tablet 325 mg 01-08 21:15: 00 01-08 21:47 :00 No 325mg 325 mg, Oral, ONCE, 1 dose, On Thu01/09/24 at 1615, STAT [facility] spironolact one 25 mg tablet 12-15 00:00: 00 01-15 04:59 :00 No [id number] 25mg Take 1 tablet by mouth in the morning for 30 days. [facility] furosemide (LASIX) tablet 40 mg 12-14 22:00: 00 Yes 40mg 40 mg, Oral, QAM+PM, First dose (after last modificati on) on Thu12/15/23 at 1700, Until Discontinu ed, Routine [facility] spironolact one (ALDACTONE) tablet 25 mg 12-14 14:00: 00 Yes 25mg 25 mg, Oral, DAILY, First dose on Thu12/15/23 at 0900, Until Discontinu ed, Routine [facility] tamsulosin (FLOMAX) capsule 0.4 mg 12-14 14:00: 00 Yes .4mg 0.4 mg, Oral, DAILY, First dose on Thu12/15/23 at 0900, Until Discontinu ed, Routine [facility] metoprolol succinate XL (TOPROL XL) tablet 12.5 mg 12-14 14:00: 00 Yes 12.5mg 12.5 mg, Oral, DAILY, First dose on Thu12/15/23 at 0900, Until Discontinu ed, Routine [facility] lisinopriL (PRINIVIL,Z ESTRIL) tablet 2.5 mg 12-14 14:00: 00 Yes 2.5mg [facility] DULoxetine (CYMBALTA) capsule 30 mg 12-14 14:00: 00 Yes 30mg 30 mg, Oral, DAILY, First dose on Thu12/15/23 at 0900, Until Discontinu ed, Routine [facility] digoxin (LANOXIN) tablet 125 mcg 12-14 14:00: 00 Yes 125ug 125 mcg, Oral, DAILY, First dose on Thu12/15/23 at 0900, Until Discontinu ed [facility] aspirin chewable tablet 81 mg 12-14 14:00: 00 Yes 81mg 81 mg, Oral, DAILY, First dose on Thu12/15/23 at 0900, Until Discontinu ed, Routine [facility] furosemide (LASIX) injection 40 mg 12-14 14:00: 00 12-14 13:49 :00 No 40mg 40 mg, Slow IV Push, ONCE, 1 dose, On Thu12/15/23 at 0900, Routine [facility] MULTIVITAMI N ORAL 12-14 11:08: 41 Yes 1{tbl} Take 1 Tab by mouth daily. [facility] omega-3 fatty acids-vitam in E (FISH OIL) 1,000 mg capsule 12-14 11:08: 41 Yes 1g Take 1 g by mouth daily. [facility] loratadine (CLARITIN LIQUI-GEL) 10 mg capsule 12-14 11:08: 41 Yes Take by mouth daily. [facility] ondansetron 4 mg tablet 12-14 11:08: 41 Yes 4mg Take 1 tablet by mouth every 8 (eight) hours as needed for Nausea and Vomiting (N/V). [facility] methylPREDN ISolone sod succ (SOLU-MEDRO L (PF)) injection 40 mg 12-14 11:00: 00 Yes 40mg 40 mg, Intravenou s, Q6H, First dose (after last modificati on) on Thu12/15/23 at 0600, Until Discontinu ed, Routine [facility] ipratropium -albuteroL (DUONEB) 0.5 mg-3 mg(2.5 mg base)/3 mL nebulizer solution 3 mL 12-14 08:08: 34 Yes 3mL 3 mL, Inhalation , QIDPRN, Starting on Thu12/15/23 at 0308, Until Discontinu ed, Routine, Wheezing, Shortness of Breath, Bronchospa sm, Chest tightness [facility] ipratropium -albuteroL (DUONEB) 0.5 mg-3 mg(2.5 mg base)/3 mL nebulizer solution 3 mL 12-14 03:19: 38 Yes 3mL 3 mL, Inhalation , QIDPRN, Starting on Thu12/14/23 at 2219, Until Discontinu ed, Routine, Wheezing, Shortness of Breath, Bronchospa sm, Chest tightness [facility] Sliding Scale Insulin - Lispro (HumaLOG) 12-14 02:00: 00 Yes [facility] mirtazapine (REMERON) tablet 15 mg 12-14 02:00: 00 Yes 15mg 15 mg, Oral, QHS, First dose on Thu12/14/23 at 2100, Until Discontinu ed, Routine [facility] atorvast[facility] n (LIPITOR) tablet 40 mg 12-14 02:00: 00 Yes 40mg 40 mg, Oral, QHS, First dose on Thu12/14/23 at 2100, Until Discontinu ed, Routine [facility] lacosamide (VIMPAT) tablet 100 mg 12-14 01:00: 00 Yes 100mg 100 mg, Oral, BID, First dose on Thu12/14/23 at 2000, Until Discontinu ed, Routine [facility] gabapentin (NEURONTIN) capsule 100 mg 12-14 01:00: 00 Yes 100mg 100 mg, Oral, TID, First dose on Thu12/14/23 at 2000, Until Discontinu ed, Routine [facility] divalproex (DEPAKOTE) delayed release tablet 1,000 mg 12-14 01:00: 00 Yes 1000mg 1,000 mg, Oral, Q12H, First dose on Thu12/14/23 at 2000, Until Discontinu ed, Routine [facility] cyclobenzap rine (FLEXERIL) tablet 5 mg 12-14 01:00: 00 Yes 5mg 5 mg, Oral, TID, First dose on Thu12/14/23 at 1999, Until Discontinu ed, Routine [facility] apixaban (ELIQUIS) tablet 5 mg 12-14 01:00: 00 02-28 00:59 :00 No [id number] 5mg 5 mg, Oral, BID, 152 doses, First dose on Thu12/14/23 at 1999, Last dose on Thu02/28/24 at 0800, Routine, Indication s: DVT/PE [facility] ondansetron (ZOFRAN (PF)) injection 4 mg 12-14 00:15: 00 12-13 23:26 :00 No 4mg 4 mg, Slow IV Push, ONCE, 1 dose, On Thu12/14/23 at 1915, Routine [facility] morpHINE (4 mg/mL) injection 4 mg 12-14 00:15: 00 12-13 23:27 :00 No 4mg 4 mg, Slow IV Push, ONCE, 1 dose, On Thu12/14/23 at 1915, STAT [facility] metFORMIN 500 mg tablet 12-14 00:00: 00 01-14 04:59 :00 No [id number] 500mg Take 1 tablet by mouth in the morning for 30 days. [facility] empaglifloz in (JARDIANCE) 10 mg tablet 12-14 00:00: 00 01-14 04:59 :00 No [id number] 10mg Take 1 tablet by mouth in the morning for 30 days. [facility] furosemide 40 mg tablet 12-14 00:00: 00 01-09 00:00 :00 No [id number] 60mg Take 1.5 tablets by mouth every morning and evening for 60 days. [facility] glucagon (GLUCAGEN DIAGNOSTIC KIT) injection 1 mg 12-13 23:57: 51 Yes 1mg [facility] dextrose 50 % in water (D50W) injection 25 mL 12-13 23:57: 51 Yes 25mL [facility] ondansetron (ZOFRAN (PF)) injection 4 mg 12-13 23:57: 45 Yes 4mg [facility] morpHINE (2 mg/mL) injection 2 mg 12-13 23:57: 39 12-14 23:56 :39 No 2mg 2 mg, Slow IV Push, Q4HPRN, Starting on Thu12/14/23 at 1857, Until Thu12/15/23 at 1856, Routine, Pain (scale 7-10) [facility] HYDROcodone -acetaminop hen (NORCO 5) 5-325 mg tablet 1 tablet 12-13 23:57: 36 12-15 23:56 :36 No 1{tbl} 1 tablet, Oral, Q6HPRN, Starting on Thu12/14/23 at 1857, Until Thu12/16/23 at 185, Routine, Pain (scale 4-6) [facility] acetaminoph en (TYLENOL) tablet 650 mg 12-13 23:57: 28 Yes 650mg 650 mg, Oral, Q6HPRN, Starting on Thu12/14/23 at 1857, Until Discontinu ed, Routine, Pain (scale 1-3), Temp > 38 C [facility] dicyclomine (BENTYL) tablet 20 mg 12-13 23:53: 34 Yes 20mg [facility] methylpredn isolone sod succ (SOLU-MEDRO L) injection 125 mg 12-13 23:00: 00 12-14 08:08 :57 No 125mg 125 mg, Intravenou s, Q6H, First dose on Thu12/14/23 at 1800, Until Discontinu ed, Routine [facility] ipratropium -albuteroL (DUONEB) 0.5 mg-3 mg(2.5 mg base)/3 mL nebulizer solution 3 mL 12-13 21:00: 00 Yes 3mL 3 mL, Inhalation , QID, First dose on Thu12/14/23 at 1600, Until Discontinu ed, Routine [facility] ondansetron (ZOFRAN (PF)) injection 4 mg 12-13 20:45: 00 12-13 19:40 :00 No 4mg 4 mg, Slow IV Push, ONCE, 1 dose, On Thu12/14/23 at 1545, Routine [facility] morpHINE (4 mg/mL) injection 4 mg 12-13 20:45: 00 12-13 19:41 :00 No 4mg 4 mg, Slow IV Push, ONCE, 1 dose, On Thu12/14/23 at 1545, STAT [facility] furosemide (LASIX) tablet 40 mg 12-03 14:00: 00 Yes 40mg 40 mg, Oral, DAILY, First dose (after last modificati on) on Thu12/04/23 at 0900, Until Discontinu ed, Routine [facility] mirtazapine (REMERON) tablet 15 mg 12-03 02:00: 00 Yes 15mg [facility] metoprolol succinate XL 25 mg 24 hr tablet 12-03 00:00: 00 Yes [id number] 12.5mg Take 0.5 tablets by mouth in the morning. [facility] Potassium Bicarb-Citr ic Acid (EFFER-K) effervescen t tablet 40 mEq 12-02 21:06: 00 12-02 23:09 :00 No 40meq 40 mEq, Oral, ONCE, 1 dose, On Thu12/03/23 at 1615, Routine [facility] metoprolol succinate XL (TOPROL XL) tablet 12.5 mg 12-02 16:00: 00 Yes 12.5mg 12.5 mg, Oral, DAILY, First dose on Thu12/03/23 at 1100, Until Discontinu ed, Routine [facility] sennosides (SENOKOT) tablet 8.6 mg 12-02 15:00: 00 Yes 8.6mg 8.6 mg, Oral, DAILY, First dose on Thu12/03/23 at 1000, Until Discontinu ed, Routine [facility] acetaminoph en (TYLENOL) tablet 650 mg 12-02 14:47: 07 Yes 650mg 650 mg, Oral, Q6HPRN, Starting on Thu12/03/23 at 0947, Until Discontinu ed, Routine, Pain (scale 1-3) [facility] ipratropium -albuteroL (DUONEB) 0.5 mg-3 mg(2.5 mg base)/3 mL nebulizer solution 3 mL 12-02 14:45: 00 Yes 3mL 3 mL, Inhalation , QID, First dose (after last modificati on) on Thu12/03/23 at 0945, Until Discontinu ed, Routine [facility] tamsulosin (FLOMAX) capsule 0.4 mg 12-02 14:00: 00 Yes .4mg 0.4 mg, Oral, DAILY, First dose on Thu12/03/23 at 0900, Until Discontinu ed, Routine [facility] DULoxetine (CYMBALTA) capsule 30 mg 12-02 14:00: 00 Yes 30mg 30 mg, Oral, DAILY, First dose on Thu12/03/23 at 0900, Until Discontinu ed, Routine [facility] digoxin (LANOXIN) tablet 125 mcg 12-02 14:00: 00 Yes 125ug 125 mcg, Oral, DAILY, First dose on Thu12/03/23 at 0900, Until Discontinu ed [facility] aspirin chewable tablet 81 mg 12-02 14:00: 00 Yes 81mg 81 mg, Oral, DAILY, First dose on Thu12/03/23 at 0900, Until Discontinu ed, Routine [facility] furosemide (LASIX) tablet 40 mg 12-02 14:00: 00 12-02 17:37 :33 No 40mg 40 mg, Oral, QAM+PM, First dose on Thu12/03/23 at 0900, Until Discontinu ed, Routine [facility] lacosamide (VIMPAT) tablet 100 mg 12-02 13:30: 00 Yes 100mg 100 mg, Oral, BID, First dose on Thu12/03/23 at 0830, Until Discontinu ed, Routine [facility] magnesium oxide (MAG-OX 400) tablet 400 mg 12-02 13:26: 00 12-02 14:24 :00 No 400mg 400 mg, Oral, ONCE, 1 dose, On Thu12/03/23 at 0830, Routine [facility] Potassium Bicarb-Citr ic Acid (EFFER-K) effervescen t tablet 40 mEq 12-02 13:19: 00 12-02 14:24 :00 No 40meq 40 mEq, Oral, ONCE, 1 dose, On Thu12/03/23 at 0830, Routine [facility] Sliding Scale Insulin - Lispro (HumaLOG) 12-02 13:00: 00 Yes Subcutaneo us, TID MEALS+HS, First dose on Thu12/03/23 at 0800, Until Discontinu ed, Routine [facility] gabapentin (NEURONTIN) capsule 100 mg 12-02 13:00: 00 Yes 100mg 100 mg, Oral, TID, First dose on Thu12/03/23 at 0800, Until Discontinu ed, Routine [facility] divalproex ER (DEPAKOTE ER) 24 hr tablet 1,000 mg 12-02 13:00: 00 Yes 1000mg 1,000 mg, Oral, Q12H, First dose on Thu12/03/23 at 0800, Until Discontinu ed, Routine [facility] cyclobenzap [facility]ine (FLEXERIL) tablet 5 mg 12-02 13:00: 00 Yes 5mg 5 mg, Oral, TID, First dose on Thu12/03/23 at 0800, Until Discontinu ed, Routine [facility] KCL (KLOR-CON M20) tablet 40 mEq 12-02 12:15: 00 12-02 14:24 :00 No 40meq 40 mEq, Oral, ONCE, 1 dose, On Thu12/03/23 at 0715, Routine [facility] KCL (KLOR-CON M20) tablet 20 mEq 12-02 04:00: 00 12-02 04:07 :00 No 20meq 20 mEq, Oral, ONCE, 1 dose, On Thu12/02/23 at 2300, Routine [facility] furosemide (LASIX) injection 40 mg 12-02 03:15: 00 12-02 02:36 :00 No 40mg 40 mg, Slow IV Push, ONCE, 1 dose, On Thu12/02/23 at 2215, Routine [facility] glucagon (GLUCAGEN DIAGNOSTIC KIT) injection 1 mg 12-02 02:54: 39 Yes 1mg 1 mg, Intramuscu lar, PRN, Starting on Thu12/02/23 at 2154, Until Discontinu ed, MICHAEL, Blood Glucose < or = 70 mg/dL and patient is NPO, unable to swallow or has mental changes. [facility] dextrose 50 % in water (D50W) injection 25 mL 12-02 02:54: 38 Yes 25mL 25 mL, Slow IV Push, PRN, Starting on Thu12/02/23 at 2154, Until Discontinu ed, MICHAEL, Blood Glucose < or = 70 mg/dL and patient is NPO, unable to swallow or has mental status changes. [facility] atorvastati n (LIPITOR) tablet 40 mg 12-02 02:00: 00 Yes 40mg 40 mg, Oral, QHS, First dose on Thu12/02/23 at 2100, Until Discontinu ed, Routine [facility] apixaban (ELIQUIS) tablet 5 mg 12-02 01:45: 00 02-28 00:59 :00 No [id number] 5mg 5 mg, Oral, BID, 176 doses, First dose on Thu12/02/23 at 2045, Last dose on Thu02/28/24 at 0800, Routine, Indication s: DVT/PE [facility] albuterol (PROVENTIL) 2.5 mg /3 mL (0.083 %) nebulizer solution 2.5 mg 12-02 01:40: 57 Yes 2.5mg [facility] ondansetron (ZOFRAN (PF)) injection 4 mg 12-02 01:02: 39 Yes 4mg 4 mg, Slow IV Push, Q6HPRN, Nausea and Vomiting (N/V), Starting on Thu12/02/23 at 2002, Doses of ondansetro n 16 mg and above need to be administer ed via IV piggyback. For Dose >=24mg ECG monitoring is advisable. [facility] lisinopriL 2.5 mg tablet 12-02 00:00: 00 Yes [id number] 2.5mg Take 1 tablet by mouth in the morning. [facility] acetaminoph en (OFIRMEV) IV piggyback 1,000 mg 12-01 22:15: 00 12-01 21:51 :00 No 1000mg 1,000 mg, IV Piggyback, at 400 mL/hr Administer over 15 Minutes, ONCE, 1 dose, On Thu12/02/23 at 1715, Routine, Is the patient strict NPO and unable to tolerate oral medication s? Yes [facility] iopamidol (ISOVUE 370-500 mL) injection 85 mL 12-01 19:15: 00 12-01 19:33 :00 No [id number] 85mL 85 mL, Intravenou s, ONCE, 1 dose, On Thu12/02/23 at 1415, Routine [facility] FENTanyl PF (SUBLIMAZE (PF)) injection 25 mcg 12-01 18:30: 00 12-01 19:38 :00 No 25ug 25 mcg, Slow IV Push, ONCE, 1 dose, On Thu12/02/23 at 1330, STAT [facility] NaCl 0.9% (NS) bolus infusion 1,000 mL 12-01 18:15: 00 12-01 21:00 :00 No 1000mL at 999 mL/hr, 1,000 mL, IV Infusion, ONCE, 1 dose, On Thu12/02/23 at 1315, STAT [facility] DULoxetine 30 mg capsule 11-28 00:00: 00 Yes [id number] 30mg Take 1 capsule by mouth in the morning. [facility] digoxin 125 mcg tablet 11-28 00:00: 00 Yes [id number] .125mg Take 1 tablet by mouth in the morning. [facility] tamsulosin 0.4 mg 24 hr capsule 11-28 00:00: 00 02-27 04:59 :00 No [id number] .4mg Take 1 capsule by mouth in the morning for 90 days. [facility] metoprolol succinate XL 50 mg 24 hr tablet 11-28 00:00: 00 12-02 00:00 :00 No [id number] 50mg Take 1 tablet by mouth in the morning. [facility] lisinopriL 5 mg tablet 11-28 00:00: 00 12-02 00:00 :00 No [id number] 5mg Take 1 tablet by mouth in the morning. [facility] spironolact one 25 mg tablet 11-28 00:00: 00 12-02 00:00 :00 No [id number] 50mg Take 2 tablets by mouth in the morning. [facility] metoprolol succinate XL (TOPROL XL) tablet 50 mg 11-27 14:00: 00 Yes 50mg 50 mg, Oral, DAILY, First dose (after last modificati on) on 11/28/23 at 0900, Until Discontinu ed, Routine [facility] KCL (KLOR-CON M20) tablet 40 mEq 11-27 12:30: 00 11-27 13:39 :00 No 40meq 40 mEq, Oral, ONCE, 1 dose, On 11/28/23 at 0730, Routine [facility] potassium chloride in water (KCL) 20 mEq/100 mL RTU IVPB 20 mEq 11-27 11:00: 00 11-27 13:40 :00 No 20meq 20 mEq, IV Piggyback, ONCE, 1 dose, On 11/28/23 at 0600, 100 mL [facility] clonazePAM (KLONOPIN) tablet 0.5 mg 11-27 02:45: 00 Yes .5mg 0.5 mg, Oral, QHS, First dose on Thu11/27/23 at 2145, Until Discontinu ed, Routine [facility] lacosamide (VIMPAT) tablet 100 mg 11-27 01:00: 00 Yes 100mg 100 mg, Oral, BID, First dose (after last modificati on) on Thu11/27/23 at 2000, Until Discontinu ed, Routine [facility] gabapentin 100 mg capsule 11-27 00:00: 00 Yes [id number] 100mg Take 1 capsule by mouth in the morning and 1 capsule at noon and 1 capsule in the evening. [facility] divalproex ER 500 mg 24 hr tablet 11-27 00:00: 00 04-03 00:00 :00 No [id number] 1000mg Take 2 tablets by mouth every 12 (twelve) hours. [facility] apixaban 5 mg tablet 11-27 00:00: 00 03-01 04:59 :00 No [id number] Take 2 tablets by mouth 2 (two) times daily for 3 days, THEN 1 tablet 2 (two) times daily for 90 days. Indication s: history of deep vein thrombosis [facility] furosemide 40 mg tablet 11-27 00:00: 00 12-14 00:00 :00 No [id number] 40mg Take 1 tablet by mouth every morning and evening. [facility] lacosamide (VIMPAT) 200 mg in NaCl 0.9% (NS) 50 mL piggyback 11-26 18:45: 00 11-26 23:04 :00 No 200mg 200 mg, IV Piggyback, ONCE, 1 dose, On Thu11/27/23 at 1345, Administer over 30 Minutes, 50 mL [facility] furosemide (LASIX) tablet 40 mg 11-26 14:00: 00 Yes 40mg 40 mg, Oral, QAM+PM, First dose on Thu11/27/23 at 0900, Until Discontinu ed, Routine [facility] divalproex ER (DEPAKOTE ER) 24 hr tablet 1,000 mg 11-26 13:00: 00 Yes 1000mg 1,000 mg, Oral, Q12H, First dose (after last modificati on) on Thu11/27/23 at 0800, Until Discontinu ed, Routine [facility] furosemide (LASIX) injection 40 mg 11-26 01:00: 00 11-26 01:57 :00 No 40mg 40 mg, Slow IV Push, BID, 1 dose, First dose (after last modificati on) on Thu11/26/23 at 2000, Routine [facility] divalproex ER (DEPAKOTE ER) 24 hr tablet 1,250 mg 11-26 01:00: 00 11-26 02:38 :40 No 1250mg 1,250 mg, Oral, Q12H, First dose (after last modificati on) on Thu11/26/23 at 2000, Until Discontinu ed, Routine [facility] cyanocobala min (DODEX) injection 1,000 mcg 11-25 18:30: 00 11-25 19:31 :00 No 1000ug 1,000 mcg, Intramuscu lar, ONCE, 1 dose, On Thu11/26/23 at 1330, [facility] thi[facility] (VITAMIN B1) 100 mg in NaCl 0.9% (NS) piggyback 11-25 18:00: 00 11-30 13:59 :00 No 100mg IV Piggyback, DAILY, 5 doses, First dose on Thu11/26/23 at 1300, Last dose on Thu11/30/23 at 0900, 50 mL [facility] digoxin (LANOXIN) tablet 125 mcg 11-25 16:30: 00 Yes 125ug 125 mcg, Oral, DAILY, First dose on Thu11/26/23 at 1130, Until Discontinu ed, Routine [facility] metoprolol succinate XL (TOPROL XL) tablet 25 mg 11-25 16:15: 00 11-27 13:09 :49 No 25mg 25 mg, Oral, DAILY, First dose on Thu11/26/23 at 1115, Until Discontinu ed, Routine [facility] apixaban (ELIQUIS) tablet 10 mg 2023-0 11-25 01:00: 00 11-30 00:59 :00 No [...] Routine, Indication s: DVT/PE [Order 2 End] [facility] furosemide (LASIX) injection 40 mg 2023-11-25 01:00: 00 11-25 16:08 :20 No 40mg 40 mg, Slow IV Push, BID, First dose (after last modificati on) on Thu11/25/23 at 1999, Until Discontinu ed, Routine [facility] spironolact one (ALDACTONE) tablet 12.5 mg 2023-11-24 21:00: 00 Yes 12.5mg 12.5 mg, Oral, DAILY, First dose on Thu11/25/23 at 1600, Until Discontinu ed, Routine [facility] lisinopriL (PRINIVIL,Z ESTRIL) tablet 5 mg 2023-0 11-24 21:00: 00 Yes 5mg 5 mg, Oral, DAILY, First dose on Thu11/25/23 at 1600, Until Discontinu ed, Routine [facility] apixaban (ELIQUIS) tablet 5 mg 2023-0 11-24 16:30: 00 11-24 16:18 :00 No 5mg 5 mg, Oral, ONCE, 1 dose, On Thu11/25/23 at 1130, Routine, Indication s: DVT/PE [facility] apixaban (ELIQUIS) tablet 5 mg 11-24 14:00: 00 11-24 15:40 :42 No 5mg 5 mg, Oral, BID, 11 doses, First dose (after last modificati on) on Thu11/25/23 at 0900, Last dose on Thu11/30/23 at 0800, Routine, Indication s: DVT/PE [facility] divalproex ER (DEPAKOTE ER) 24 hr tablet 1,000 mg 11-24 13:00: 00 11-25 17:41 :19 No 1000mg 1,000 mg, Oral, Q12H, First dose (after last modificati on) on Thu11/25/23 at 0800, Until Discontinu ed, Routine [facility] ondansetron (ZOFRAN (PF)) injection 4 mg 11-24 03:45: 00 11-24 02:49 :00 No 4mg 4 mg, Slow IV Push, ONCE, On Thu11/24/23 at 2245, For 1 dose, Doses of ondansetro n 16 mg and above need to be administer ed via IV piggyback. For Dose >=24mg ECG monitoring is advisable. [facility] divalproex (DEPAKOTE) delayed release tablet 500 mg 11-24 03:45: 00 11-24 04:49 :00 No 500mg 500 mg, Oral, ONCE, 1 dose, On Thu11/24/23 at 2245, Routine [facility] nitroglycer in (NITROSTAT) sublingual tablet 0.4 mg 11-24 02:36: 01 Yes .4mg 0.4 mg, Sublingual , Q5MIN PRN, Starting on Thu11/24/23 at 2136, Until Discontinu ed, Routine, Chest pain [facility] nystatin (NILSTAT) 100,000 unit/mL suspension 500,000 Units 11-24 01:15: 00 2024- 05-10 20:18 :35 No 5mL 500,000 Units (5 mL), Oral, QID, First dose on Thu11/24/23 at 2015, Until Discontinu ed, Routine [facility] acetaminoph en-codeine (TYLENOL #3) 300-30 mg tablet 1 tablet 11-24 01:07: 37 Yes 1{tbl} 1 tablet, Oral, Q6HPRN, Starting on Thu11/24/23 at 2007, Until Discontinu ed, Routine, Pain (scale 4-6) [facility] iopamidol (ISOVUE 370-500 mL) injection 100 mL 11-23 23:15: 00 11-23 22:15 :00 No [id number] 100mL 100 mL, Intravenou s, ONCE, 1 dose, On Thu11/24/23 at 1815, Routine [facility] milrinone in 5 % dextrose (PRIMACOR) 20 mg/100 mL (200 mcg/mL) infusion RTU 11-23 20:45: 00 11-24 18:50 :54 No .25ug/k g/min 0.25 mcg/kg/min ?94.5 kg (7.0875 mL/hr, rounded to 7.09 mL/hr), IV Infusion, CONTINUOUS , Starting on Thu11/24/23 at 1545, 1. Dose to be adjusted by physician or provider. 2. Notify MD if MAP < 65 mmHG. [facility] polyethylen e glycol 3350 powder 17 g 11-23 19:15: 00 Yes 17g 17 g, Oral, DAILY, First dose on Thu11/24/23 at 1415, Until Discontinu ed, Routine [facility] ipratropium -albuteroL (DUONEB) 0.5 mg-3 mg(2.5 mg base)/3 mL nebulizer solution 3 mL 11-23 19:00: 00 Yes 3mL 3 mL, Inhalation , TID, First dose (after last modificati on) on Thu11/24/23 at 1400, Until Discontinu ed, Routine [facility] ondansetron (ZOFRAN (PF)) injection 4 mg 11-23 17:16: 00 11-23 17:24 :00 No 4mg 4 mg, Slow IV Push, ONCE, On Thu11/24/23 at 1230, For 1 dose, Doses of ondansetro n 16 mg and above need to be administer ed via IV piggyback. For Dose >=24mg ECG monitoring is advisable. [facility] apixaban (ELIQUIS) tablet 10 mg 11-23 15:45: 00 11-24 13:38 :20 No 10mg 10 mg, Oral, BID, 14 doses, First dose on Thu11/24/23 at 1045, Last dose on Thu11/30/23 at 2000, Routine, Indication s: DVT/PE [facility] milrinone in 5 % dextrose (PRIMACOR) 20 mg/100 mL (200 mcg/mL) infusion RTU 11-23 15:45: 00 11-23 20:33 :33 No .125ug/ kg/min 0.125 mcg/kg/min ?94.5 kg (3.5438 mL/hr, rounded to 3.54 mL/hr), IV Infusion, CONTINUOUS , Starting on Thu11/24/23 at 1045, 1. Dose to be adjusted by physician or provider. 2. Notify MD if MAP < 65 mmHG. [facility] HYDROcodone -acetaminop hen (NORCO 5) 5-325 mg tablet 1 tablet 11-23 14:28: 00 11-23 15:37 :00 No 1{tbl} 1 tablet, Oral, ONCE, 1 dose, On Thu11/24/23 at 0930, Routine [facility] hydrALAZINE (APRESOLINE ) tablet 10 mg 11-23 12:30: 00 11-25 13:28 :25 No 10mg 10 mg, Oral, Q8H, First dose on Thu11/24/23 at 0730, Until Discontinu ed, Routine [facility] iohexoL (OMNIPAQUE 180-20 mL) injection 11-22 20:31: 56 11-22 20:32 :10 No ONCE INTRA PROCEDURE, Starting on Thu11/23/23 at 1531, Until Thu11/23/23 at 1532, Routine, CV Intraproce dure [facility] nitroglycer in (TRIDIL) 2 mg in 10 mL D5W for Cardiac Cath 11-22 19:32: 38 11-22 20:32 :10 No ONCE INTRA PROCEDURE, Starting on Thu11/23/23 at 1432, Until Thu11/23/23 at 1532, Routine, CV Intraproce dure [facility] heparin 1,000 unit/mL injection 11-22 19:31: 28 11-22 20:32 :10 No ONCE INTRA PROCEDURE, Starting on Thu11/23/23 at 1431, Until Thu11/23/23 at 1532, Routine, CV Intraproce dure [facility] midazolam (VERSED) injection 11-22 19:24: 54 11-22 20:32 :10 No ONCE INTRA PROCEDURE, Starting on Thu11/23/23 at 1424, Until Thu11/23/23 at 1532, Routine, CV Intraproce dure [facility] FENTanyl PF (SUBLIMAZE (PF)) injection 11-22 19:21: 00 11-22 20:32 :10 No ONCE INTRA PROCEDURE, Starting on Thu11/23/23 at 1421, Until Thu11/23/23 at 1532, Routine, CV Intraproce dure [facility] lidocaine 1% (PF) (XYLOCAINE) injection 11-22 19:20: 00 11-22 20:32 :10 No ONCE INTRA PROCEDURE, Starting on Thu11/23/23 at 1420, Until Thu11/23/23 at 1532, Routine, CV Intraproce dure [facility] furosemide 20 mg tablet 11-22 15:47: 27 11-27 00:00 :00 No 20mg Take 1 tablet by mouth every morning and evening. [facility] milrinone in 5 % dextrose (PRIMACOR) 20 mg/100 mL (200 mcg/mL) infusion RTU 11-22 15:45: 00 11-23 15:32 :54 No .25ug/k g/min 0.25 mcg/kg/min ?94.5 kg (7.0875 mL/hr, rounded to 7.09 mL/hr), IV Infusion, CONTINUOUS , Starting on Thu11/23/23 at 1045, 1. Dose to be adjusted by physician or provider. 2. Notify MD if MAP < 65 mmHG. [facility] DULoxetine (CYMBALTA) capsule 30 mg 11-22 14:00: 00 11-27 00:00 :00 No 30mg 30 mg, Oral, DAILY, First dose on Thu11/23/23 at 0900, Until Discontinu ed, Routine [facility] magnesium oxide (MAG-OX 400) tablet 400 mg 11-22 13:45: 00 11-22 14:00 :00 No 400mg 400 mg, Oral, ONCE, 1 dose, On Thu11/23/23 at 0845, Routine [facility] hydrOXYzine (ATARAX) tablet 50 mg 11-22 13:42: 15 Yes 50mg 50 mg, Oral, Q8HPRN, Starting on Thu11/23/23 at 0842, Until Discontinu ed, Routine, Anxiety [facility] KCL (KLOR-CON M20) tablet 40 mEq 11-22 10:45: 00 11-22 10:20 :00 No 40meq 40 mEq, Oral, ONCE, 1 dose, On Thu11/23/23 at 0545, Routine [facility] mirtazapine (REMERON) tablet 15 mg 11-22 02:00: 00 Yes 15mg 15 mg, Oral, QHS, First dose on Thu11/22/23 at 2100, Until Discontinu ed, Routine [facility] atorvastati n (LIPITOR) tablet 40 mg 11-22 02:00: 00 11-25 16:05 :43 No 40mg 40 mg, Oral, QHS, First dose on Thu11/22/23 at 2100, Until Discontinu ed, Routine [facility] divalproex (DEPAKOTE) delayed release tablet 500 mg 11-22 01:00: 00 11-23 12:27 :34 No 500mg 500 mg, Oral, BID, First dose on 11/22/23 at 2000, Until Discontinu ed, Routine [facility] milrinone in 5 % dextrose (PRIMACOR) 20 mg/100 mL (200 mcg/mL) infusion RTU 11-21 19:30: 00 11-22 15:38 :58 No .125ug/ kg/min 0.125 mcg/kg/min ?94.5 kg (3.5438 mL/hr, rounded to 3.54 mL/hr), IV Infusion, CONTINUOUS , Starting on Thu11/22/23 at 1430, 1. Dose to be adjusted by physician or provider. 2. Notify MD if MAP < 65 mmHG. [facility] diazePAM (VALIUM) injection 2 mg 11-21 19:28: 00 11-21 20:15 :00 No 2mg 2 mg, Intravenou s, ONCE, 1 dose, On Thu11/22/23 at 1430, Routine [facility] gabapentin (NEURONTIN) capsule 100 mg 11-21 19:00: 00 Yes 100mg 100 mg, Oral, TID, First dose on Thu11/22/23 at 1400, Until Discontinu ed, Routine [facility] furosemide (LASIX) injection 40 mg 11-21 19:00: 00 11-24 18:54 :28 No 40mg 40 mg, Slow IV Push, TID, First dose on Thu11/22/23 at 1400, Until Discontinu ed, Routine [facility] ondansetron (ZOFRAN-ODT ) disintegrat ing tablet 4 mg 11-21 18:45: 00 11-21 18:25 :00 No 4mg 4 mg, Oral, ONCE, 1 dose, On Thu11/22/23 at 1345, Routine [facility] perflutren lipid microsphere s (DEFINITY) injection 2 mL 11-21 16:45: 00 11-21 16:45 :00 No [id number] 2mL 2 mL, IV Push, ONCE, 1 dose, On 11/22/23 at 1145, Routine [facility] furosemide (LASIX) injection 40 mg 11-21 14:15: 00 11-21 18:23 :20 No 40mg 40 mg, Slow IV Push, BID, 2 doses, First dose on 11/22/23 at 0915, Last dose on 11/22/23 at 2000, Routine [facility] losartan (COZAAR) tablet 25 mg 11-21 14:15: 00 11-21 20:14 :04 No 25mg 25 mg, Oral, DAILY, First dose on 11/22/23 at 0915, Until Discontinu ed, Routine [facility] tamsulosin (FLOMAX) capsule 0.4 mg 11-21 14:00: 00 Yes .4mg 0.4 mg, Oral, DAILY, First dose on 11/22/23 at 0900, Until Discontinu ed, Routine [facility] pantoprazol e (PROTONIX) EC tablet 40 mg 11-21 14:00: 00 Yes 40mg 40 mg, Oral, DAILY, First dose on 11/22/23 at 0900, Until Discontinu ed, Routine [facility] aspirin chewable tablet 81 mg 11-21 14:00: 00 Yes 81mg 81 mg, Oral, DAILY, First dose on 11/22/23 at 0900, Until Discontinu ed, Routine [facility] predniSONE (DELTASONE) tablet 40 mg 11-21 14:00: 00 11-25 13:14 :00 No 40mg 40 mg, Oral, DAILY, 5 doses, First dose on 11/22/23 at 0900, Last dose on Arpita 11/26/23 at 0900, Routine [facility] iopamidol (ISOVUE 370-500 mL) injection 80 mL 11-21 14:00: 11-21 14:00 :00 No [id number] 80mL 80 mL, Intravenou s, ONCE, 1 dose, On Thu11/22/23 at 0900, Routine [facility] Sliding Scale Insulin - Lispro (HumaLOG) 11-21 13:00: 00 Yes Subcutaneo us, TID MEALS+HS, First dose on Thu11/22/23 at 0800, Until Discontinu ed, Routine [facility] divalproex ER (DEPAKOTE ER) 24 hr tablet 500 mg 11-21 13:00: 00 11-24 02:43 :24 No 500mg 500 mg, Oral, Q12H, First dose on Thu11/22/23 at 0800, Until Discontinu ed, Routine [facility] ipratropium -albuteroL (DUONEB) 0.5 mg-3 mg(2.5 mg base)/3 mL nebulizer solution 3 mL 11-21 09:00: 00 11-23 15:56 :58 No 3mL 3 mL, Inhalation , Q4H, First dose on 11/22/23 at 0400, Until Discontinu ed, Routine [facility] furosemide (LASIX) injection 40 mg 11-21 07:45: 00 11-21 07:15 :00 No 40mg 40 mg, Slow IV Push, ONCE, 1 dose, On Thu11/22/23 at 0245, Routine [facility] sodium chloride 7% (HYPER-IRVIN) nebulizer solution 4 mL 11-21 07:00: 00 11-23 14:32 :09 No 4mL 4 mL, Inhalation , DAILY, First dose on Thu11/22/23 at 0200, Until Discontinu ed, Routine [facility] morpHINE (2 mg/mL) injection 2 mg 11-21 06:52: 11 Yes 2mg 2 mg, Slow IV Push, Q4HPRN, Starting on 11/22/23 at 0152, Until Discontinu ed, Routine, Pain (scale 7-10) [facility] heparin 25,000 Units/250 mL (Premixed Bag) in [...] ant therapy. Range, Dosing and Testing: FOR [facility], [facility], AND [facility] ONLY - aPTT < [...] ADJUST INITIAL BOLUS OR INITIAL INFUSION RATE. [facility] heparin (1,000 unit/mL, 10 mL vial) for Rebolusing 11-21 06:43: 39 11-23 15:32 :54 No 3000U FOR REBOLUSING , Starting on Thu11/22/23 at 0143, Until 11/24/23 at 1032, Routine, Dosing based on aPPT testing parameters (refer to continuous heparin drip order). [facility] glucagon (GLUCAGEN DIAGNOSTIC KIT) injection 1 mg 11-21 06:36: 57 Yes 1mg [facility] dextrose 50 % in water (D50W) injection 25 mL 11-21 06:36: 57 Yes 25mL [facility] acetaminoph en (TYLENOL) tablet 650 mg 11-21 06:36: 44 Yes 650mg 650 mg, Oral, Q6HPRN, Starting on Thu11/22/23 at 0136, Until Discontinu ed, Routine, Pain (scale 1-3) [facility] ondansetron (ZOFRAN (PF)) injection 4 mg 11-21 04:45: 00 11-21 03:46 :00 No 4mg 4 mg, Slow IV Push, ONCE, 1 dose, On 11/21/23 at 2345, MICHAEL [facility] acetaminoph en (TYLENOL) tablet 975 mg 11-21 04:45: 00 11-21 03:44 :00 No 975mg 975 mg, Oral, ONCE, 1 dose, On 11/21/23 at 2345, MICHAEL [facility] HEPARIN SODIUM (PORCINE) 1,000 UNIT/ML BOLUS ACS ORDER SET 11-21 04:15: 00 11-21 04:33 :00 No 4000U 4,000 Units, IV Push, ONCE, 1 dose, [facility] 11/21/23 [facility] 2315[facility] (4 mg/mL) injection 4 mg 11-21 04:15: 00 11-21 04:27 :00 No 4mg 4 mg, Slow IV Push, ONCE, 1 dose, On 11/21/23 at 2315, STAT [facility] methylpredn isolone sod succ (SOLU-MEDRO L) injection 125 mg 11-21 04:15: 00 11-21 03:24 :00 No 125mg 125 mg, Slow IV Push, ONCE NOW, 1 dose, On 11/21/23 at 2315, [facility] heparin 25,000 Units/250 mL (Premixed Bag) [...] ant therapy. Range, Dosing and Testing: FOR [facility] [facility], [facility], AND [facility] ONLY - aPTT < [...] once therapeuti c levels are reached. FOR [facility] ONLY - aPTT < [...] INITIAL BOLUS OR INITIAL INFUSION R[facility]. [facility] -albuteroL (DUONEB) 0.5 mg-3 mg(2.5 mg base)/3 mL nebulizer solution 3 mL 11-21 04:00: 00 11-21 02:51 :00 No 3mL 3 mL, Inhalation , ONCE, 1 dose, On 11/21/23 at 2300, MICHAEL [facility] ipratropium -albuteroL (DUONEB) 0.5 mg-3 mg(2.5 mg base)/3 mL nebulizer solution 3 mL 11-21 03:30: 00 11-21 02:37 :00 No 3mL 3 mL, Inhalation , ONCE, 1 dose, On 11/21/23 at 2230, MICHAEL [facility] NaCl 0.9% (NS) bolus infusion 500 mL 11-21 03:15: 00 11-21 04:14 :00 No 500mL at 999 mL/hr, 500 mL, IV Infusion, ONCE, 1 dose, On 11/21/23 at 2215, STAT [facility] mirtazapine 15 mg tablet 09-30 00:00: 00 Yes 15mg Take 1 tablet by mouth at bedtime. [facility] Metformin HCl 500 MG oral Tablet 09-29 14:28: 11 Yes 500mg Take 1 tablet (500 mg total) by mouth daily (with breakfast) . [facility] Ibuprofen (MOTRIN) 200 MG oral Tablet 09-29 14:27: 32 09-29 00:00 :00 No 200mg Q.[id number] 3D Take 1 tablet (200 mg total) by mouth every 8 hours as needed for pain. [facility] Fluticasone -Umeclidin- Vilant (Trelegy Ellipta) 100-62.5-25 MCG/ACT inhalation AEROSOL POWDER, BREATH ACTIVATED 09-29 00:00: 00 Yes [id number] 1{puff} Inhale 1 puff into the lungs daily. [facility] gonz[facility] Carvedilol 12.5 MG oral Tablet 09-29 00:00: 00 Yes [id number] 12.5mg Take 1 tablet (12.5 mg total) by mouth in the morning and 1 tablet (12.5 mg total) in the evening. Take with meals. [facility] gonzalez Duloxetine HCl [address] Particles 09-29 00:00: 00 Yes [id number] 20mg Take 1 capsule (20 mg total) by mouth daily. [facility] Acetaminoph en-Codeine (TYLENOL/CO DEINE #3) 300-30 MG oral Tablet 09-29 00:00: 00 Yes [id number] 1{tbl} Q.25D Take 1 tablet by mouth every 6 hours as needed for pain. [facility] Clonazepam 1 MG oral Tablet 09-29 00:00: 00 Yes [id number] 1mg QD Take 1 tablet (1 mg total) by mouth nightly as needed for anxiety. [facility] gonzalez spironolact one 25 mg tablet 09-29 00:00: 00 11-27 00:00 :00 No 25mg Take 1 tablet by mouth in the morning and 1 tablet in the evening. [facility] metFORMIN 500 mg tablet 09-28 00:00: 00 12-14 00:00 :00 No 500mg Take 1 tablet by mouth in the morning. [facility] Carvedilol 12.5 MG oral Tablet 09-28 00:00: [...] MG oral Tablet 09-11 00:00: 00 Yes [id number] 15mg QD Take 1 tablet (15 mg total) by mouth nightly as needed. [facility] Acetaminoph en-Codeine (TYLENOL/CO DEINE #3) 300-30 MG oral Tablet 09-11 00:00: 00 09-29 00:00 :00 No [id number] 1{tbl} Q.25D Take 1 tablet by mouth every 6 hours as needed for pain. [facility] DULoxetine (CYMBALTA) 60 MG capsule 09-09 00:00: 00 10-08 23:59 :00 No 60mg QD Take 1 capsule (60 mg total) by mouth daily for 30 days. [facility] varenicline (CHANTIX) 1 mg tablet 09-08 10:51: 03 Yes 1mg Q.5D Take 1 tablet (1 mg total) by mouth 2 (two) times daily Give with meals and with a full glass of water.. [facility] atorvastati n (LIPITOR) 20 MG tablet 09-08 10:51: 03 Yes 20mg QD Take 1 tablet (20 mg total) by mouth daily. [facility] Cyanocobala min (Vitamin B-12) 1000 MCG oral Tablet 09-08 00:00: 00 10-08 04:59 :00 No 1000ug Take 1 tablet (1,000 mcg total) by mouth daily. [facility] gonzalez lidocaine (LIDODERM) 4 % patch 09-08 00:00: 00 10-07 23:59 :00 No 3{patch } Q24H Place 3 patches onto the skin daily for 30 days. [facility] metoprolol succinate (TOPROL-XL) 25 MG 24 hr tablet 09-07 16:47: 05 09-07 00:00 :00 No 25mg QD Take 1 tablet (25 mg total) by mouth daily. [facility] albuterol HFA (VENTOLIN HFA) 90 mcg/actuati on inhaler 09-07 16:47: 05 09-07 00:00 :00 No 1{puff} Inhale 1 puff by mouth via inhaler every 6 (six) hours as needed for Wheezing. [facility] fluticasone -umeclidin- vilanter (Trelegy Ellipta) 200-62.5-25 mcg DsDv 09-07 16:47: 05 09-07 00:00 :00 No QD Inhale by mouth via inhaler daily. [facility] Albuterol HFA 108 (90 Base) MCG/ACT [...] total) by mouth daily for 30 days. [facility] polyethylen e glycol (GLYCOLAX) 17 gram packet 09-07 00:00: 00 10-06 23:59 :00 No 17g Q.5D Take 17 g by mouth 2 (two) times daily for 30 days. [facility] gabapentin (NEURONTIN) 400 MG capsule 09-07 00:00: 00 10-06 23:59 :00 No 400mg Q.[id number] 3D Take 1 capsule (400 mg total) by mouth 3 (three) times daily for 30 days. [facility] furosemide (LASIX) 20 MG tablet 09-07 00:00: 00 10-06 23:59 :00 No 20mg QD Take 1 tablet (20 mg total) by mouth daily for 30 days. [facility] fluticasone -umeclidin- vilanter (Trelegy Ellipta) 200-62.5-25 mcg DsDv 09-07 00:00: 00 10-06 23:59 :00 No 1{inhal ation} QD Inhale 1 Inhalation by mouth via inhaler daily for 30 days. [facility] metoprolol succinate (TOPROL-XL) 25 MG 24 hr tablet 09-07 00:00: 00 10-06 23:59 :00 No 25mg QD Take 1 tablet (25 mg total) by mouth daily for 30 days. [facility] lacosamide (VIMPAT) 100 mg in NaCl 0.9% (NS) 50 mL piggyback 08-12 21:15: 00 08-12 21:23 :00 No 100mg 100 mg, IV Piggyback, ONCE, 1 dose, On Thu08/12/23 at 1515, Administer over 30 Minutes, 50 mL
Facu lty member approving Restricted medication : MJ BRYAN [facility] Dicyclomine HCl 20 MG oral Tablet 08-06 [...] total) by mouth daily for 5 days. [facility] varenicline (CHANTIX) 1 mg tablet 2022-07 19:45: 32 Yes 1mg Q.5D Take 1 tablet (1 mg total) by mouth 2 (two) times daily Give with meals and with a full glass of water.. [facility] atorvastati n (LIPITOR) 20 MG tablet 2022-07 19:45: 32 Yes 20mg QD Take 1 tablet (20 mg total) by mouth daily. [facility] metoprolol succinate (TOPROL-XL) 25 MG 24 hr tablet 2022-07 19:45: 32 09-07 00:00 :00 No 25mg QD Take 1 tablet (25 mg total) by mouth daily. [facility] albuterol HFA (VENTOLIN HFA) 90 mcg/actuati on inhaler 2022-07 19:45: 32 09-07 00:00 :00 No 1{puff} Inhale 1 puff by mouth via inhaler every 6 (six) hours as needed for Wheezing. [facility] fluticasone -umeclidin- vilanter (Trelegy Ellipta) 200-62.5-25 mcg DsDv 2022-07 19:45: 32 09-07 00:00 :00 No QD Inhale by mouth via inhaler daily. [facility] acetaminoph en-codeine (TYLENOL #3) 300-30 mg per tablet 2022-07 18:02: 06-16 00:00 :00 No 1{tbl} Take 1 tablet by mouth every 4 (four) hours as needed for Pain. [facility] DULoxetine (CYMBALTA) 30 MG capsule 2022-07 00:00: 00 09-08 00:00 :00 No 30mg QD Take 1 capsule (30 mg total) by mouth daily for 90 days. [facility] metroNIDAZO LE (FLAGYL) 500 MG tablet 2022-07 00:00: 00 07-04 23:59 :00 No 500mg Take 1 tablet (500 mg total) by mouth every 8 (eight) hours for 18 days. [facility] ciprofloxac in HCl (CIPRO) 500 MG tablet 2022-07 00:00: 00 07-04 23:59 :00 No 500mg Q.5D Take 1 tablet (500 mg total) by mouth 2 (two) times daily for 18 days. [facility] cyclobenzap rine (FLEXERIL) 10 MG tablet 2022-07 00:00: 00 06-26 23:59 :00 No 10mg Q.[id number] 3D Take 1 tablet (10 mg total) by mouth 3 (three) times daily for 10 days. [facility] oxyCODONE (OXY-IR) 10 mg tablet 2022-07 00:00: 06-26 23:59 :00 No 10mg Take 1 tablet (10 mg total) by mouth every 8 (eight) hours as needed for up to 10 days. Max Daily Amount: 30 mg [facility] nystatin (MYCOSTATIN ) 100,000 unit/mL suspension 2022-07 00:00: 00 06-21 23:59 :00 No [id number] Q.25D Take 5 mLs (500,000 Units total) by mouth 4 (four) times daily for 5 days. [facility] dexAMETHaso ne (DECADRON) 2 MG tablet 2022-07 00:00: 00 06-08 23:59 :00 No 1mg Take 0.5 tablets (1 mg total) by mouth 2 (two) times daily with breakfast and dinner for 2 days. [facility] metoprolol succinate (TOPROL-XL) 25 MG 24 hr tablet 2022-07 17:44: 21 Yes 25mg QD Take 1 tablet (25 mg total) by mouth daily. [facility] varenicline (CHANTIX) 1 mg tablet 2022-07 17:44: 21 Yes 1mg Q.5D Take 1 tablet (1 mg total) by mouth 2 (two) times daily Give with meals and with a full glass of water.. [facility] albuterol HFA (VENTOLIN HFA) 90 mcg/actuati on inhaler 2022-07 17:44: 21 Yes 1{puff} Inhale 1 puff by mouth via inhaler every 6 (six) hours as needed for Wheezing. [facility] fluticasone -umeclidin- vilanter (Trelegy Ellipta) 200-62.5-25 mcg DsDv 2022-07 17:44: 21 Yes QD Inhale by mouth via inhaler daily. [facility] atorvastati n (LIPITOR) 20 MG tablet 2022-07 17:44: 21 Yes 20mg QD Take 1 tablet (20 mg total) by mouth daily. [facility] acetaminoph en-codeine (TYLENOL #3) 300-30 mg per tablet 2022-07 17:44: 21 Yes 1{tbl} Take 1 tablet by mouth every 4 (four) hours as needed for Pain. [facility] Naloxone (NARCAN) 4 MG/0.1ML nasal Liquid 2022-07 00:00: 00 Yes 4mg 0.1 mL (4 mg total) as needed. Cynthia gonzalez senna (SENOKOT) 8.6 mg tablet 2022-07 00:00: 00 06-18 23:59 :00 No 17.2mg Q.5D Take 2 tablets (17.2 mg total) by mouth 2 (two) times daily for 14 days. [facility] cyclobenzap rine (FLEXERIL) 10 MG tablet 2022-07 00:00: 00 06-16 00:00 :00 No 10mg Q.[id number] 3D Take 1 tablet (10 mg total) by mouth 3 (three) times daily for 10 days. [facility] methocarbam oL (ROBAXIN) 500 MG tablet 2022-07 00:00: 00 06-16 00:00 :00 No 500mg Q.25D Take 1 tablet (500 mg total) by mouth 4 (four) times daily for 10 days. [facility] lactulose (CHRONULAC) 20 gram/30 mL solution 2022-07 00:00: 00 06-11 23:59 :00 No 20g Q.[id number] 3D Take 30 mLs (20 g total) by mouth 3 (three) times daily for 7 days. [facility] ondansetron (ZOFRAN-ODT ) 4 MG disintegrat ing tablet 2022-07 00:00: 00 06-11 23:59 :00 No 4mg Take 1 tablet (4 mg total) by mouth every 6 (six) hours as needed for up to 7 days. [facility] metoprolol succinate (TOPROL-XL) 25 MG 24 hr tablet 2022-07 15:23: 22 Yes 25mg QD Take 1 tablet (25 mg total) by mouth daily. [facility] varenicline (CHANTIX) 1 mg tablet 2022-07 15:23: 22 Yes 1mg Q.5D Take 1 tablet (1 mg total) by mouth 2 (two) times daily Give with meals and with a full glass of water.. [facility] albuterol HFA (VENTOLIN HFA) 90 mcg/actuati on inhaler 2022-07 15:23: 22 Yes 1{puff} Inhale 1 puff by mouth via inhaler every 6 (six) hours as needed for Wheezing. [facility] [facility] fluticasone -umeclidin- vilanter (Trelegy Ellipta) 200-62.5-25 mcg DsDv 2022-07 15:23: 22 Yes QD Inhale by mouth via inhaler daily. [facility] atorvastati n (LIPITOR) 20 MG tablet 2022-07 15:23: 22 Yes 20mg QD Take 1 tablet (20 mg total) by mouth daily. [facility] acetaminoph en-codeine (TYLENOL #3) 300-30 mg per tablet 2022-07 15:23: 22 Yes 1{tbl} Take 1 tablet by mouth every 4 (four) hours as needed for Pain. [facility] acetaminoph en-codeine (TYLENOL #3) 300-30 mg per tablet 2022-07 09:42: 02 Yes 1{tbl} Take 1 tablet by mouth every 4 (four) hours as needed for Pain. Max Daily Amount: 6 tablets [facility] varenicline (CHANTIX) 1 mg tablet 2022-07 09:40: 04 Yes 1mg Q.5D Take 1 tablet (1 mg total) by mouth 2 (two) times daily Give with meals and with a full glass of water.. [facility] albuterol HFA (VENTOLIN HFA) 90 mcg/actuati on inhaler 2022-07 09:40: 04 Yes 1{puff} Inhale 1 puff by mouth via inhaler every 6 (six) hours as needed for Wheezing. [facility] fluticasone -umeclidin- vilanter (Trelegy Ellipta) 200-62.5-25 mcg DsDv 2022-07 09:40: 04 Yes QD Inhale by mouth via inhaler daily. [facility] atorvastati n (LIPITOR) 20 MG tablet 2022-07 09:40: 04 Yes 20mg QD Take 1 tablet (20 mg total) by mouth daily. [facility] metoprolol succinate (TOPROL-XL) 25 MG 24 hr tablet 2022-07 09:13: 28 Yes 25mg QD Take 1 tablet (25 mg total) by mouth daily. [facility] Atorvastati n Calcium 20 MG oral Tablet 2022-07 023 00:00: 00 Yes 20mg Take 1 tablet (20 mg total) by mouth daily. Cynthia gonzalez metoprolol succinate XL 25 mg 24 hr tablet 2022-07 0-23 00:00: 00 11-27 00:00 :00 No 25mg Take 1 tablet by mouth every morning. [facility] Nitroglycer in 0.4 MG sublingual [...] tablet (20 mg total) by mouth daily. [facility] aspirin 81 MG EC tablet 04-03 00:00: 00 07-02 23:59 :00 No 81mg QD Take 1 tablet (81 mg total) by mouth daily for 90 days. [facility] divalproex (DEPAKOTE) 500 MG EC tablet 04-03 00:00: 00 07-02 23:59 :00 No 500mg Q.5D Take 1 tablet (500 mg total) by mouth 2 (two) times daily for 90 days. [facility] lisinopriL (PRINIVIL,Z ESTRIL) 5 MG tablet 04-03 00:00: 00 05-28 00:00 :00 No 5mg QD Take 1 tablet (5 mg total) by mouth daily. [facility] clonazePAM (KlonoPIN) 0.5 MG tablet 04-03 00:00: 00 05-03 23:59 :00 No .25mg Take 0.5 tablets (0.25 mg total) by mouth 2 (two) times daily as needed for Anxiety for up to 30 days. Max Daily Amount: 0.5 mg [facility] HYDROcodone -acetaminop hen (NORCO 10-325) 10-325 mg per tablet 04-03 00:00: 00 04-13 23:59 :00 No 1{tbl} Take 1 tablet by mouth every 6 (six) hours as needed for up to 10 days. Max Daily Amount: 4 tablets [facility] methocarbam oL (ROBAXIN) 500 MG tablet 04-03 00:00: 00 04-13 23:59 :00 No 500mg Q.25D Take 1 tablet (500 mg total) by mouth 4 (four) times daily for 10 days. [facility] gabapentin (NEURONTIN) 300 MG capsule 04-02 00:00: 00 04-03 00:00 :00 No 300mg Q.[id number] 3D Take 1 capsule (300 mg total) by mouth 3 (three) times daily for 90 days. [facility] divalproex (DEPAKOTE) 500 MG EC tablet 04-02 00:00: 00 04-03 00:00 :00 No 500mg Q.5D Take 1 tablet (500 mg total) by mouth 2 (two) times daily for 90 days. [facility] clonazePAM (KlonoPIN) 0.5 MG tablet 04-02 00:00: 00 04-03 00:00 :00 No .25mg Take 0.5 tablets (0.25 mg total) by mouth 2 (two) times daily as needed for Anxiety for up to 30 days. Max Daily Amount: 0.5 mg [facility] HYDROcodone -acetaminop hen (NORCO 10-325) 10-325 mg per tablet 04-02 00:00: 00 04-03 00:00 :00 No 1{tbl} Take 1 tablet by mouth every 6 (six) hours as needed for up to 10 days. Max Daily Amount: 4 tablets [facility] methocarbam oL (ROBAXIN) 500 MG tablet 04-02 00:00: 00 04-03 00:00 :00 No 500mg Q.25D Take 1 tablet (500 mg total) by mouth 4 (four) times daily for 10 days. [facility] Metronidazo le 500 MG oral Tablet [...] morning and 1 tablet in the evening. [facility] Divalproex Sodium 500 MG oral Tablet Delayed Response 01-14 00:00: 00 Yes 250mg 250 mg. Cynthia gonzalez lacosamide (VIMPAT) 200 mg in NaCl 0.9% (NS) 50 mL piggyback 12-11 19:45: 00 12-11 19:57 :00 No 200mg 200 mg, IV Piggyback, ONCE, 1 dose, On Arpita 12/11/22 at 1445, Administer over 30 Minutes, 50 mL
Facu lty member approving Restricted medication : Alfonso ALVARADO [facility] ketorolac (TORADOL) injection 15 mg 12-11 18:15: 00 12-11 17:25 :00 No 15mg 15 mg, Slow IV Push, ONCE, 1 dose, On Arpita 12/11/22 at 1315, [facility] iopamidol (ISOVUE 370-500 mL) injection 80 mL 12-11 16:30: 00 12-11 16:27 :00 No [id number] 80mL 80 mL, Intravenou s, ONCE, 1 dose, On Thu12/11/22 at 1130, Routine [facility] nitroglycer in (NITROL) 2 % ointment 0.5 Inch 12-11 15:30: 00 12-11 14:31 :00 No .5[in_u s] 0.5 Inch, Transderma l (Apply To Skin), ONCE, 1 dose, [facility] Thu12/11/22 at 1030[facility] 324 mg 12-11 15:30: 00 12-11 14:30 :00 No 324mg 324 mg, Oral, ONCE, 1 dose, On Arpita 12/11/22 at 1030, Routine [facility] ondansetron (ZOFRAN (PF)) injection 4 mg 12-11 15:30: 00 12-11 14:29 :00 No 4mg 4 mg, Slow IV Push, ONCE, 1 dose, On Arpita 12/11/22 at 1030, [facility] LORazepam (ATIVAN) injection 1 mg 12-11 15:00: 00 12-11 14:57 :00 No 1mg 1 mg, Slow IV Push, ONCE, 1 dose, On Arpita 12/11/22 at 1000, STAT [facility] Lacosamide (VIMPAT) 100 mg tablet 12-11 00:00: 00 Yes [id number] 100mg Take 1 tablet by mouth in the morning and 1 tablet in the evening. [facility] acetaminoph en-codeine (TYLENOL #3) 300-30 mg tablet 1 tablet 11-18 05:30: 00 11-18 05:30 :00 No 1{tbl} 1 tablet, Oral, ONCE, 1 dose, On Thu11/18/22 at 0030, [facility] methocarbam oL (ROBAXIN) tablet 1,000 mg 11-18 05:30: 00 11-18 05:30 :00 No 1000mg 1,000 mg, Oral, ONCE, 1 dose, On Thu11/18/22 at 0030, [facility] ondansetron (ZOFRAN (PF)) injection 4 mg 11-18 04:45: 00 11-18 03:38 :00 No 4mg 4 mg, Slow IV Push, ONCE, 1 dose, On Thu11/17/22 at 2345, [facility] morpHINE (4 mg/mL) injection 4 mg 11-18 03:45: 00 11-18 03:38 :00 No 4mg 4 mg, Slow IV Push, ONCE, 1 dose, On Thu11/17/22 at 2245, Routine [facility] methocarbam oL (ROBAXIN) injection 1,000 mg 11-18 00:30: 00 11-17 23:47 :00 No 1000mg 1,000 mg, Intravenou s, ONCE, 1 dose, On Thu11/17/22 at 1930, [facility] methocarbam oL 500 mg tablet 11-18 00:00: 00 12-02 00:00 :00 No [id number] 1000mg Take 2 tablets by mouth 4 (four) times daily as needed for Pain (scale 7-10). [facility] acetaminoph en-codeine 300-60 mg tablet 11-18 00:00: 00 11-26 04:59 :00 No [id number] 1{tbl} Take 1 tablet by mouth every 6 (six) hours as needed for Pain for up to 7 days. Indication s: acute pain [facility] ketorolac (TORADOL) injection 15 mg 11-18 00:00: 00 11-17 23:08 :00 No 15mg 15 mg, Slow IV Push, ONCE, 1 dose, On Thu11/17/22 at 1900, Routine [facility] morpHINE (4 mg/mL) injection 4 mg 11-17 23:45: 00 11-17 23:49 :00 No 4mg 4 mg, Slow IV Push, ONCE, 1 dose, On Thu11/17/22 at 1845, Routine [facility] ondansetron (ZOFRAN (PF)) injection 4 mg 11-17 23:15: 00 11-17 23:06 :00 No 4mg 4 mg, Slow IV Push, ONCE, 1 dose, On Thu11/17/22 at 1815, MICHAEL [facility] lisinopriL (PRINIVIL,Z ESTRIL) tablet 10 mg 08-02 15:00: 00 Yes 10mg 10 mg, Oral, DAILY, First dose on Thu08/02/22 at 0900, Until Discontinu ed, Routine [facility] predniSONE (DELTASONE) tablet 40 mg 08-02 15:00: 00 08-07 14:59 :00 No 40mg 40 mg, Oral, DAILY, 5 doses, First dose on Thu08/02/22 at 0900, Last dose on Thu08/06/22 at 0900, Routine [facility] morpHINE (2 mg/mL) injection 2 mg 08-02 03:29: 15 Yes 2mg 2 mg, Slow IV Push, Q4HPRN, Starting on Thu08/01/22 at 2129, Until Discontinu ed, Routine, Pain (scale 7-10) [facility] levETIRAcet am (KEPPRA) in NACL (ISO-OS) 1,000 mg/100 mL RTU 08-02 00:00: 00 Yes 1000mg 1,000 mg, IV Piggyback, Q12H, First dose on Thu08/01/22 at 1800, Until Discontinu ed, Administer over 15 Minutes, 100 mL [facility] MULTIVITAMI N ORAL 08-01 23:49: 34 Yes 1{tbl} Take 1 Tab by mouth daily. [facility] omega-3 fatty acids-vitam in E (FISH OIL) 1,000 mg capsule 08-01 23:49: 34 Yes 1g Take 1 g by mouth daily. [facility] loratadine (CLARITIN LIQUI-GEL) 10 mg capsule 08-01 23:49: 34 Yes Take by mouth daily. [facility] ondansetron 4 mg tablet 08-01 23:49: 34 Yes 4mg Take 1 tablet by mouth every 8 (eight) hours as needed for Nausea and Vomiting (N/V). [facility] omega-3 fatty acids-vitam in E (FISH OIL) 1,000 mg capsule 08-01 23:49: 34 Yes 1g Take 1 g by mouth daily. [facility] pantoprazol e 40 mg EC tablet 08-01 23:49: 34 11-27 00:00 :00 No 40mg Take 40 mg by mouth daily. [facility] benzonatate (TESSALON PERLES) capsule 100 mg 08-01 20:00: 00 Yes 100mg 100 mg, Oral, Q8H, First dose on Thu08/01/22 at 1400, Until Discontinu ed, Routine [facility] ipratropium -albuteroL (DUONEB) 0.5 mg-3 mg(2.5 mg base)/3 mL nebulizer solution 3 mL 08-01 18:00: 00 Yes 3mL 3 mL, Inhalation , QID, First dose on Thu08/01/22 at 1200, Until Discontinu ed, Routine [facility] ipratropium -albuteroL (DUONEB) 0.5 mg-3 mg(2.5 mg base)/3 mL nebulizer solution 3 mL 08-01 17:07: 07 Yes 3mL 3 mL, Inhalation , QIDPRN, Starting on Thu08/01/22 at 1107, Until Discontinu ed, MICHAEL, Wheezing, Shortness of Breath [facility] sulfur hexafluorid e microsphr (LUMASON) injection 5 mL 08-01 17:00: 00 08-01 17:00 :00 No [id number] 5mL 5 mL, Intravenou s, ONCE, 1 dose, On Thu08/01/22 at 1100, Routine
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 Restricted medication : KYLEE MONTEZ [facility] pantoprazol e (PROTONIX) EC tablet 40 mg 08-01 15:00: 00 Yes 40mg 40 mg, Oral, DAILY, First dose on Thu08/01/22 at 0900, Until Discontinu ed, Routine [facility] aspirin chewable tablet 81 mg 08-01 15:00: 00 Yes 81mg 81 mg, Oral, DAILY, First dose on Thu08/01/22 at 0900, Until Discontinu ed, Routine [facility] amLODIPine (NORVASC) tablet 10 mg 08-01 15:00: 00 Yes 10mg 10 mg, Oral, DAILY, First dose on Thu08/01/22 at 0900, Until Discontinu ed, Routine [facility] levETIRAcet am (KEPPRA) tablet 500 mg 08-01 14:00: 00 08-01 23:56 :35 No 500mg 500 mg, Oral, BID, First dose on Thu08/01/22 at 0800, Until Discontinu ed, Routine [facility] carvediloL (COREG) tablet 6.25 mg 08-01 14:00: 00 08-01 17:29 :13 No 6.25mg 6.25 mg, Oral, BID MEALS, First dose on Thu08/01/22 at 0800, Until Discontinu ed, Routine [facility] levETIRAcet am (KEPPRA) in NACL (ISO-OS) 1,000 mg/100 mL RTU 08-01 06:45: 00 08-01 06:32 :00 No 1000mg 1,000 mg, IV Piggyback, ONCE, 1 dose, On Thu08/01/22 at 0045, Administer over 15 Minutes, 100 mL [facility] LORazepam (ATIVAN) injection 1 mg 08-01 05:52: 54 Yes 1mg 1 mg, Slow IV Push, Q4HPRN, Starting on Thu07/31/22 at 2352, Until Discontinu ed, Routine, Seizures, Agitation, Anxiety, ETOH / Cocaine Withdrawl [facility] foLIC acid (FOLATE) tablet 1 mg 08-01 05:45: 00 Yes 1mg 1 mg, Oral, DAILY, First dose on Thu07/31/22 at 2345, Until Discontinu ed, Routine [facility] thiamine (VITAMIN B1) tablet 100 mg 08-01 05:45: 00 Yes 100mg 100 mg, Oral, DAILY, First dose on Thu07/31/22 at 2345, Until Discontinu ed, Routine [facility] LORazepam (ATIVAN) injection 0.5 mg 08-01 05:30: 00 08-01 05:29 :00 No .5mg 0.5 mg, Slow IV Push, ONCE, 1 dose, On Thu07/31/22 at 2330, MICHAEL [facility] atorvastati n (LIPITOR) tablet 40 mg 08-01 03:00: 00 Yes 40mg 40 mg, Oral, QHS, First dose on Thu07/31/22 at 2100, Until Discontinu ed, Routine [facility] diphenhydrA MINE (BENADRYL) tablet 25 mg 08-01 00:32: 02 Yes 25mg 25 mg, Oral, Q6HPRN, Starting on Thu07/31/22 at 1832, Until Discontinu ed, Routine, Itching [facility] enoxaparin (LOVENOX) injection 40 mg 07-31 23:00: 00 Yes 40mg 40 mg, Subcutaneo us, DAILY, First dose on Thu07/31/22 at 1700, Until Discontinu ed, Routine [facility] morpHINE (2 mg/mL) injection 2 mg 07-31 23:00: 00 07-31 22:29 :00 No 2mg 2 mg, Slow IV Push, ONCE, 1 dose, On Arpita 07/31/22 at 1700, Routine [facility] HYDROcodone -acetaminop hen (NORCO) 10-325 mg tablet 1 tablet 07-31 22:01: 36 Yes 1{tbl} 1 tablet, Oral, Q6HPRN, Starting on Arpita 07/31/22 at 1601, Until Discontinu ed, Routine, Pain (scale 7-10) [facility] HYDROcodone -acetaminop hen (NORCO 5) 5-325 mg tablet 1 tablet 07-31 22:01: 34 08-02 22:00 :34 No 1{tbl} 1 tablet, Oral, Q6HPRN, Starting on Arpita 07/31/22 at 1601, Until 08/02/22 at 1600, Routine, Pain (scale 4-6) [facility] acetaminoph en (TYLENOL) tablet 650 mg 07-31 22:01: 33 Yes 650mg 650 mg, Oral, Q6HPRN, Starting on Thu07/31/22 at 1601, Until Discontinu ed, Routine, Pain (scale 1-3) [facility] ketorolac (TORADOL) injection 15 mg 07-31 21:45: 00 07-31 20:50 :00 No 15mg 15 mg, Slow IV Push, ONCE, 1 dose, On Arpita 07/31/22 at 1545, Routine [facility] ondansetron (ZOFRAN (PF)) injection 4 mg 07-31 21:00: 00 07-31 20:47 :00 No 4mg 4 mg, Slow IV Push, ONCE, 1 dose, On Arpita 07/31/22 at 1500, MICHAEL [facility] furosemide (LASIX) injection 40 mg 07-31 20:15: 00 Yes 40mg 40 mg, Slow IV Push, Q12H, First dose on Arpita 07/31/22 at 1415, Until Discontinu ed, Routine [facility] methylpredn isolone sod succ (SOLU-MEDRO L) injection 125 mg 07-31 19:30: 00 07-31 18:54 :00 No 125mg 125 mg, Slow IV Push, ONCE NOW, 1 dose, On Arpita 07/31/22 at 1330, MICHAEL [facility] ipratropium -albuteroL (DUONEB) 0.5 mg-3 mg(2.5 mg base)/3 mL nebulizer solution 3 mL 07-31 19:30: 00 07-31 18:48 :00 No 3mL 3 mL, Inhalation , ONCE, 1 dose, On Arpita 07/31/22 at 1330, [facility] EC tablet 07-31 17:15: 40 Yes 40mg Take 40 mg by mouth daily. [facility] MULTIVITAMI N ORAL 07-31 15:50: 57 Yes 1{tbl} Take 1 Tab by mouth daily. [facility] loratadine (CLARITIN LIQUI-GEL) 10 mg capsule 07-31 15:50: 57 Yes Take by mouth daily. [facility] ondansetron 4 mg tablet 07-31 15:50: 57 Yes 4mg Take 4 mg by mouth every 8 (eight) hours as needed. [facility] omega-3 fatty acids-vitam in E (FISH OIL) 1,000 mg capsule 07-31 15:21: 27 Yes 1g Take 1 g by mouth daily. [facility] TAKE ONE (1) TABLET(S) BY MOUTH THREE TIMES A DAY NEEDED. 07-28 00:00: 00 No Methylpredn isolone 4 mg tablet 2021-07 00:00: 00 05-12 04:59 :00 No [id number] 4mg Take 1 tablet through enteral tube in the morning for 1 dose. [facility] Methylpredn isolone 4 mg tablet 2021-07 00:00: 00 05-11 04:59 :00 No [id number] 4mg Take 1 tablet through enteral tube every 12 (twelve) hours for 2 doses. [facility] MULTIVITAMI N ORAL 2021-07 14:44: 48 Yes 1{tbl} Take 1 Tab by mouth daily. [facility] omega-3 fatty acids-vitam in E (FISH OIL) 1,000 mg capsule 2021-07 14:44: 48 Yes 1g Take 1 g by mouth daily. [facility] loratadine (CLARITIN LIQUI-GEL) 10 mg capsule 2021-07 14:44: 48 Yes Take by mouth daily. [facility] ondansetron (ZOFRAN) 4 mg tablet 2021-07 14:44: 48 Yes 4mg Take 4 mg by mouth every 8 (eight) hours as needed. [facility] pantoprazol e (PROTONIX) 40 mg EC tablet 2021-07 14:44: 48 Yes 40mg Take 40 mg by mouth daily. [facility] DULoxetine 30 mg capsule 2021-07 14:00: 00 Yes 30mg Take 1 capsule by mouth in the morning. [facility] divalproex (DEPAKOTE) EC tablet 1,000 mg 2021-07 13:00: 00 Yes 1000mg 1,000 mg, Oral, BID, First dose (after last modificati on) on Thu05/08/22 at 0800, Until Discontinu ed, Routine [facility] Methylpredn isolone (MEDROL) tablet 4 mg 2021-07 08:50: 10 05-09 08:59 :00 No 4mg 4 mg, Oral, Q8H TAPER, 3 doses, First dose on Thu05/08/22 at 0400, Last dose on Thu05/08/22 at 2000, Routine [facility]-codeine (TYLENOL #3) 300-30 mg tablet 1 tablet 2021-07 04:07: 01 Yes 1{tbl} 1 tablet, Oral, Q4HPRN, Starting on Thu05/07/22 at 2307, Until Discontinu ed, Routine, Pain (scale 7-10) [facility] morpHINE (2 mg/mL) injection 2 mg 2021-07 03:03: 15 Yes 2mg 2 mg, Slow IV Push, Q4HPRN, Starting on Thu05/07/22 at 2203, Until Discontinu ed, Routine, Pain (scale 7-10) [facility] LORazepam (ATIVAN) tablet 1 mg 2021-07 00:02: 18 Yes 1mg 1 mg, Oral, Q6HPRN, Starting on Thu05/07/22 at 1902, Until Discontinu ed, Routine, Anxiety [facility] cyclobenzap rine 5 mg tablet 2021-07 00:00: 00 Yes [id number] 5mg Take 1 tablet by mouth in the morning and 1 tablet at noon and 1 tablet in the evening. [facility] DULoxetine (CYMBALTA) 30 mg capsule 2021-07 00:00: 00 06-08 05:59 :00 No [id number] 60mg Take 2 capsules by mouth in the morning for 30 days. [facility] divalproex (DEPAKOTE) 250 mg EC tablet 2021-07 00:00: 00 06-08 05:59 :00 No [id number] 750mg Take 3 tablets by mouth every 8 (eight) hours for 30 days. [facility] LORazepam 1 mg tablet 2021-07 00:00: 00 05-19 04:59 :00 No [id number] 1mg Take 1 tablet by mouth every 6 (six) hours as needed for Anxiety or Agitation for up to 10 days. [facility] acetaminoph en-codeine 300-30 mg tablet 2021-07 00:00: 00 05-16 04:59 :00 No [id number] 1{tbl} Take 1 tablet by mouth every 4 (four) hours as needed for Pain (scale 7-10) for up to 7 days. Indication s: acute pain [facility] Methylpredn isolone 4 mg tablet 2021-07 00:00: 00 05-10 04:59 :00 No [id number] 4mg Take 1 tablet by mouth every 8 (eight) hours for [address] [facility] divalproex (DEPAKOTE) EC tablet 750 mg 2021-07 01:00: 00 05-08 09:40 :23 No 750mg 750 mg, Oral, BID, First dose on Thu05/06/22 at 2000, Until Discontinu ed, Routine [facility] levETIRAcet am (KEPPRA) tablet 1,500 mg 2021-07 13:00: 00 05-06 18:38 :22 No 1500mg 1,500 mg, Oral, BID, First dose (after last modificati on) on Thu05/06/22 at 0800, Until Discontinu ed, Routine [facility] levETIRAcet am (KEPPRA) in NACL (ISO-OS) 1,000 mg/100 mL RTU 2021-07 05:00: 00 05-06 05:46 :00 No 1000mg 1,000 mg, IV Piggyback, ONCE, 1 dose, On Thu05/06/22 at 0000, Administer over 15 Minutes, [facility] methocarbam oL (ROBAXIN) tablet 500 mg 2021-07 02:15: 00 05-06 23:21 :42 No 500mg 500 mg, Oral, QID, First dose on Thu05/05/22 at 2115, Until Discontinu ed, Routine [facility] LORazepam (ATIVAN) tablet 2 mg 2021-07 01:30: 00 05-06 01:03 :00 No 2mg 2 mg, Oral, ONCE, 1 dose, On Thu05/05/22 at 2030, Routine [facility] levETIRAcet am (KEPPRA) tablet 1,000 mg 2021-07 01:00: 00 05-06 04:48 :06 No 1000mg 1,000 mg, Oral, BID, First dose on Thu05/05/22 at 2000, Until Discontinu ed, Routine [facility] enoxaparin (LOVENOX) injection 40 mg 2021-07 00:15: 00 Yes 40mg 40 mg, Subcutaneo us, Q24H, First dose on Thu05/05/22 at 1915, Until Discontinu ed, Routine [facility] levETIRAcet am (KEPPRA) in NACL (ISO-OS) 1,000 mg/100 mL RTU 2021-07 19:45: 00 05-05 20:05 :00 No 1000mg 1,000 mg, IV Piggyback, ONCE, 1 dose, On Thu05/05/22 at 1445, Administer over 15 Minutes, 100 mL [facility] clonazePAM (KLONOPIN) tablet 0.5 mg 2021-07 19:30: 00 Yes .5mg 0.5 mg, Oral, BID, First dose on Thu05/05/22 at 1430, Until Discontinu ed, Routine [facility] ibuprofen (IBU) tablet 600 mg 2021-07 19:30: 00 Yes 600mg 600 mg, Oral, TID MEALS, First dose on Thu05/05/22 at 1430, Until Discontinu ed, Routine [facility] gabapentin (NEURONTIN) capsule 300 mg 2021-07 19:30: 00 Yes 300mg 300 mg, Oral, TID, First dose on Thu05/05/22 at 1430, Until Discontinu ed, Routine [facility] cyclobenzap rine (FLEXERIL) tablet 5 mg 2021-07 19:30: 00 Yes 5mg 5 mg, Oral, TID, First dose on Thu05/05/22 at 1430, Until Discontinu ed, Routine [facility] acetaminoph en (TYLENOL) tablet 1,000 mg 2021-07 19:30: 00 Yes 1000mg 1,000 mg, Oral, Q8H, First dose on Thu05/05/22 at 1430, Until Discontinu ed, Routine [facility] pantoprazol e (PROTONIX) EC tablet 40 mg 2021-07 14:00: 00 Yes 40mg 40 mg, Oral, DAILY, First dose on Thu05/05/22 at 0900, Until Discontinu ed, Routine [facility] docusate (COLACE) capsule 100 mg 2021-07 14:00: 00 Yes 100mg 100 mg, Oral, DAILY, First dose on Thu05/05/22 at 0900, Until Discontinu ed, Routine [facility] HYDROcodone -acetaminop hen (NORCO) 10-325 mg tablet 1 tablet 2021-07 10:32: 02 05-05 19:18 :52 No 1{tbl} 1 tablet, Oral, Q6HPRN, Starting on Thu05/05/22 at 0532, Until Thu05/05/22 at 1418, Routine, Pain (scale 7-10) [facility] ondansetron (ZOFRAN (PF)) injection 4 mg 2021-07 06:49: 57 Yes 4mg 4 mg, Slow IV Push, Q6HPRN, Starting on Thu05/05/22 at 0149, Until Discontinu ed, Routine, Nausea and Vomiting (N/V) [facility] HYDROcodone -acetaminop hen (NORCO 5) 5-325 mg tablet 1 tablet 2021-07 06:49: 41 05-05 10:32 :14 No 1{tbl} 1 tablet, Oral, Q6HPRN, Starting on Thu05/05/22 at 0149, Until Thu05/05/22 at 0532, Routine, Pain (scale 7-10) [facility] acetaminoph en (TYLENOL) tablet 325 mg 2021-07 06:49: 39 05-05 19:18 :52 No 325mg 325 mg, Oral, Q4HPRN, Starting on Thu05/05/22 at 0149, Until Thu05/05/22 at 1418, Routine, Pain (scale 4-6) [facility] ondansetron (ZOFRAN) tablet 4 mg 2021-07 04:00: 00 05-05 03:26 :00 No 4mg 4 mg, Oral, ONCE, 1 dose, On 05/04/22 at 2300, Routine [facility] morpHINE (2 mg/mL) injection 2 mg 2021-07 04:00: 00 05-05 03:26 :00 No 2mg 2 mg, Slow IV Push, ONCE, 1 dose, On 05/04/22 at 2300, Routine [facility] aspirin 81 mg chewable tablet 04-16 00:00: 00 Yes [id number] 81mg Take 1 tablet by mouth in the morning. [facility] MULTIVITAMI N ORAL 04-15 17:39: 14 Yes 1{tbl} Take 1 Tab by mouth daily. [facility] omega-3 fatty acids-vitam in E (FISH OIL) 1,000 mg capsule 04-15 17:39: 14 Yes 1g Take 1 g by mouth daily. [facility] [facility] loratadine (CLARITIN LIQUI-GEL) 10 mg capsule 04-15 17:39: 14 Yes Take by mouth daily. [facility] ondansetron (ZOFRAN) 4 mg tablet 04-15 17:39: 14 Yes 4mg Take 4 mg by mouth every 8 (eight) hours as needed. [facility] pantoprazol e (PROTONIX) 40 mg EC tablet 04-15 17:39: 14 Yes 40mg Take 40 mg by mouth daily. [facility] lisinopril- hydrochloro thiazide 20-12.5 mg per tablet 04-15 15:58: 35 04-15 00:00 :00 No 1{tbl} Take 1 tablet by mouth daily. [facility] levetiracet am (KEPPRA ORAL) 04-15 15:58: 35 04-15 00:00 :00 No Take by mouth. [facility] acetaminoph en-codeine (TYLENOL #4) 300-60 mg tablet 1 tablet 04-15 05:39: 23 04-15 14:39 :42 No 1{tbl} 1 tablet, Oral, Q6HPRN, Starting on Thu04/15/22 at 0039, Until Thu04/15/22 at 0939, Routine, Pain (scale 4-6), Pain (scale 1-3) [facility] LORazepam (ATIVAN) tablet 2 mg 04-15 03:30: 00 04-15 10:27 :00 No 2mg 2 mg, Oral, ONCE, 1 dose, On Thu04/14/22 at 2230, Routine [facility] levETIRAcet am (KEPPRA) tablet 1,000 mg 04-15 02:45: 00 Yes 1000mg 1,000 mg, Oral, BID, First dose (after last modificati on) on Thu04/14/22 at 2145, Until Discontinu ed, Routine [facility] ketorolac (TORADOL) injection 15 mg 04-15 02:13: 00 04-15 02:22 :00 No 15mg 15 mg, Slow IV Push, ONCE, 1 dose, On Thu04/14/22 at 2115, Routine [facility] levETIRAcet am 1,000 mg tablet 04-15 00:00: 00 Yes [id number] 1000mg Take 1 tablet by mouth in the morning and 1 tablet in the evening. [facility] atorvastati n 40 mg tablet 04-15 00:00: 00 01-09 00:00 :00 No [id number] 40mg Take 1 tablet by mouth at bedtime. [facility] lidocaine 5 % (700 mg/patch) patch 04-15 00:00: 00 04-23 04:59 :00 No [id number] 1{patch } Apply 1 Patch to area(s) in the morning for 7 days. [facility] HYDROcodone -acetaminop hen 5-325 mg tablet 04-15 00:00: 00 04-21 04:59 :00 No [id number] 1{tbl} Take 1 tablet by mouth every 6 (six) hours as needed for Pain (scale 7-10) for up to 5 days. Indication s: acute pain [facility] lidocaine (LIDODERM) 5 % (700 mg/patch) patch 1 Patch 04-14 21:45: 29 Yes 1{patch } 1 Patch, Topical, Administer over 12 Hours, [id number], Starting on Thu04/14/22 at 1645, Until Discontinu ed, Routine, Localized pain [facility] aspirin chewable tablet 81 mg 04-14 21:30: 00 Yes 81mg 81 mg, Oral, DAILY, First dose on Thu04/14/22 at 1630, Until Discontinu ed, Routine [facility] acetaminoph en (TYLENOL) tablet 650 mg 04-14 21:29: 25 Yes 650mg 650 mg, Oral, Q6HPRN, Starting on Thu04/14/22 at 1629, Until Discontinu ed, Routine, Pain (scale 1-3), Temp > 38.5 C, Temp > 37.5 C [facility] HYDROcodone -acetaminop hen (NORCO) 10-325 mg tablet 1 tablet 04-14 21:29: 02 04-15 05:39 :41 No 1{tbl} 1 tablet, Oral, Q6HPRN, Starting on Thu04/14/22 at 1629, Until Thu04/15/22 at 0039, Routine, Pain (scale 7-10), Pain (scale 4-6) [facility] sulfur hexafluorid e microsphr (LUMASON) injection 5 mL 04-14 16:45: 00 04-14 16:45 :00 No [id number] 5mL 5 mL, Intravenou s, ONCE, 1 dose, On Thu04/14/22 at 1145, Routine
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 Restricted medication : MADELINE PIERRE [facility] clopidogreL (PLAVIX) 75 mg tablet 75 mg 04-14 14:00: 00 Yes 75mg 75 mg, Oral, DAILY, First dose on Thu04/14/22 at 0900, Until Discontinu ed, Routine [facility] pantoprazol e (PROTONIX) EC tablet 40 mg 04-14 14:00: 00 Yes 40mg 40 mg, Oral, DAILY, First dose on Thu04/14/22 at 0900, Until Discontinu ed, Routine [facility] atorvastati n (LIPITOR) tablet 40 mg 04-14 02:00: 00 Yes 40mg 40 mg, Oral, QHS, First dose on Thu04/13/22 at 2100, Until Discontinu ed, Routine [facility] LORazepam (ATIVAN) tablet 1 mg 04-14 01:30: 00 04-14 01:45 :00 No 1mg 1 mg, Oral, ONCE, 1 dose, On Thu04/13/22 at 2030, Routine [facility] methocarbam oL (ROBAXIN) tablet 500 mg 04-14 01:00: 00 Yes 500mg 500 mg, Oral, QID, First dose on Thu04/13/22 at 2000, Until Discontinu ed, Routine [facility] heparin (porcine) injection 5,000 Units 04-14 01:00: 00 Yes 5000U 5,000 Units, Subcutaneo us, Q12H, First dose on Thu04/13/22 at 2000, Until Discontinu ed, Routine [facility] acetaminoph en (TYLENOL) tablet 650 mg 04-14 00:23: 25 04-14 21:29 :42 No 650mg 650 mg, Oral, Q6HPRN, Starting on Thu04/13/22 at 1923, Until Thu04/14/22 at 1629, Routine, Pain (scale 1-3), Pain (scale 4-6), Temp > 38.5 C, Temp > 37.5 C [facility] lidocaine (LIDODERM) 5 % (700 mg/patch) patch 1 Patch 04-14 00:22: 00 04-14 13:51 :00 No 1{patch } 1 Patch, Topical, Administer over 12 Hours, ONCE, 1 dose, On Thu04/13/22 at 1930, [facility] (SUBLIMAZE (PF)) injection 50 mcg 04-13 20:30: 00 04-13 19:22 :00 No 50ug 50 mcg, Slow IV Push, ONCE, 1 dose, On 04/13/22 at 1530, Routine [facility] aspirin chewable tablet 650 mg 04-13 20:15: 00 04-13 20:15 :00 No 650mg 650 mg, Oral, ONCE, 1 dose, On 04/13/22 at 1515, Routine [facility] clopidogreL (PLAVIX) 300 mg tablet 300 mg 04-13 20:00: 00 04-13 19:15 :00 No 300mg 300 mg, Oral, ONCE, 1 dose, On 04/13/22 at 1500, Routine [facility] ondansetron (ZOFRAN (PF)) injection 4 mg 04-13 19:30: 00 04-13 19:22 :00 No 4mg 4 mg, Slow IV Push, ONCE, 1 dose, On 04/13/22 at 1430, MICHAEL [facility] iopamidol (ISOVUE 370-500 mL) injection 100 mL 04-13 18:31: 00 04-13 18:32 :00 No [id number] 100mL 100 mL, Intravenou s, ONCE, 1 dose, On 04/13/22 at 1345, Routine [facility] NaCl 0.9% (NS) injection 5 mL 04-13 18:14: 11 Yes 5mL 5 mL, Slow IV Push, PRN - SEE INSTRUCTIO NS, Starting on 04/13/22 at 1314, Until Discontinu ed, 10 mL [facility] aspirin chewable tablet 324 mg 11-24 14:00: 00 Yes 324mg 324 mg, Oral, DAILY, First dose on 11/24/21 at 0900, Until Discontinu ed, Routine [facility] metoclopram iker HCl (REGLAN) injection 10 mg 11-23 22:30: 00 11-23 21:24 :00 No 10mg 10 mg, Slow IV Push, ONCE, 1 dose, On 11/23/21 at 1730, [facility] acetaminoph en (TYLENOL) tablet 1,000 mg 11-23 22:15: 00 11-23 21:09 :00 No 1000mg 1,000 mg, Oral, ONCE, 1 dose, On 11/23/21 at 1715, [facility] ondansetron (ZOFRAN (PF)) injection 4 mg 11-23 21:45: 00 11-23 20:30 :00 No 4mg 4 mg, Slow IV Push, ONCE, 1 dose, On 11/23/21 at 1645, [facility] NaCl 0.9% (NS) bolus infusion 1,000 mL 11-23 21:30: 00 11-23 21:56 :00 No 1000mL at 999 mL/hr, 1,000 mL, IV Infusion, ONCE, 1 dose, On 11/23/21 at 1630, [facility] LORazepam (ATIVAN) injection 4 mg 11-23 21:30: 00 11-23 20:23 :00 No 4mg 4 mg, Slow IV Push, ONCE, 1 dose, On 11/23/21 at 1630, STAT [facility] levETIRAcet am (KEPPRA) in NACL (ISO-OS) 1,500 mg/100 mL RTU 11-23 21:30: 00 11-23 20:47 :00 No 1500mg 1,500 mg, IV Piggyback, ONCE, 1 dose, On 11/23/21 at 1630, Administer over 15 Minutes, 100 mL [facility] Dose Unknown 4-08 00:00: 00 No Dose Unknown 4-08 00:00: 00 No Prozac 20 mg capsule 3-21 00:00: 00 No 1mg Prozac 20 mg capsule 3-21 00:00: 00 No 1mg Dose Unknown 3-16 00:00: 00 No Dose Unknown 3-16 00:00: 00 No Dose Unknown 2021-0 3-15 00:00: 00 No Dose Unknown 2021-0 3-15 00:00: 00 No Dose Unknown 2021-0 3-14 00:00: 00 No Dose Unknown 0 3-14 00:00: 00 No Prozac 20 mg capsule 2021-0 3-09 00:00: 00 No 1mg hydroxyzine HCl 50 mg tablet 2021-0 3-09 00:00: 00 No 1mg Prozac 20 mg capsule 2021-0 3-09 00:00: 00 No 1mg hydroxyzine HCl 50 mg tablet 2021-0 3-09 00:00: 00 No 1mg Dose [...] y
Durat ion of Therapy: 7 days [facility] morpHINE injection 4 mg 03-17 01:58: 00 03-17 02:13 :00 No 4mg 4 mg, Slow IV Push, ONCE, 1 dose, 03/16/21 at 2100, STAT [facility] ondansetron (ZOFRAN (PF)) injection 4 mg 03-17 01:58: 00 03-17 02:12 :00 No 4mg 4 mg, Slow IV Push, ONCE, 1 dose, 03/16/21 at 2100, [facility] ipratropium -albuteroL (DUONEB) 0.5 mg-3 mg(2.5 mg base)/3 mL nebulizer solution 3 mL 03-17 01:57: 00 03-17 02:15 :00 No 3mL 3 mL, Inhalation , ONCE, 1 dose, 03/16/21 at 2100, [facility] NaCl 0.9% (NS) IV infusion 1,000 mL 03-17 01:57: 00 03-17 03:07 :00 No 1000mL at 999 mL/hr, Intravenou s, ONCE, 1 dose, 03/16/21 at 2100, [facility] methylpredn isolone sod succ (SOLU-MEDRO L) injection 125 mg 03-17 01:57: 00 03-17 02:11 :00 No 125mg 125 mg, Slow IV Push, ONCE, 1 dose, 03/16/21 at 2100, STAT [facility] levoFLOXaci n 500 mg tablet 03-17 00:00: 00 2021- 09-05 04:59 :00 No [id number] 500mg Take 1 tablet by mouth daily for 6 days. [facility] predniSONE 10 mg tablet 03-17 00:00: 00 03-22 04:59 :00 No [id number] 30mg Take 3 tablets by mouth daily for 4 days. [facility] albuterol (VENTOLIN) inhaler 4 Puff 03-15 01:45: 00 03-15 00:44 :00 No [id number] 4{puff} 4 Puff, Inhalation , ONCE, 1 dose, [facility] 03/14/21 at 2044, Routine [facility] dexamethaso ne (DECADRON) injection 10 mg 03-15 01:45: 00 03-15 00:45 :00 No [id number] 10mg 10 mg, Intramuscu lar, ONCE, 1 dose, [facility] 03/14/21 at 2044, Routine [facility] albuterol 2.5 mg /3 mL (0.083 %) nebulizer solution 03-15 00:00: 00 01-09 00:00 :00 No [id number] 2.5mg Inhale 3 mL every 4 (four) hours as needed for Wheezing or Shortness of Breath. [facility] levETIRAcet am (KEPPRA) in NACL (ISO-OS) 1,000 mg/100 mL RTU 02-19 20:15: 00 02-19 19:30 :00 No 1000mg 1,000 mg, IV Infusion, ONCE, 1 dose, e 02/19/21 at 1515, Administer over 15 Minutes, 100 mL [facility] levetiracet am (KEPPRA ORAL) 02-19 19:45: 33 Yes Take by mouth. [facility] LISINOPRIL- HYDROCHLORO THIAZIDE ORAL 02-19 19:41: 15 02-19 00:00 :00 No Take by mouth. [facility] dicyclomine (BENTYL) injection 20 mg 02-19 19:15: 02-19 19:04 :00 No 20mg 20 mg, Intramuscu lar, ONCE, 1 dose, 02/19/21 at 1415, Routine [facility] proMETHazin e (PHENERGAN) 25 mg in NaCl 0.9% (NS) 50 mL piggyback 02-19 19:15: 00 02-19 19:03 :00 No 25mg 25 mg, IV Piggyback, ONCE, 1 dose, 02/19/21 at 1415, 50 mL [facility] morpHINE injection 4 mg 02-19 17:15: 00 02-19 17:05 :00 No 4mg 4 mg, Slow IV Push, ONCE, 1 dose, 02/19/21 at 1215, STAT [facility] NaCl 0.9% (NS) bolus infusion 1,000 mL 02-19 17:15: 00 02-19 19:04 :00 No 1000mL at 999 mL/hr, 1,000 mL, IV Infusion, ONCE, 1 dose, 02/19/21 at 1215, STAT [facility] ondansetron (ZOFRAN (PF)) injection 4 mg 02-19 17:00: 00 02-19 15:59 :00 No 4mg 4 mg, Slow IV Push, ONCE, 1 dose, 02/19/21 at 1200, MICHAEL [facility] iopamidol (ISOVUE 370-500 mL) injection 100 mL 02-19 16:35: 00 02-19 16:45 :00 No [id number] 100mL 100 mL, Intravenou s, ONCE, 1 dose, 02/19/21 at 1145, Routine [facility] levetiracet am (KEPPRA ORAL) 02-19 14:45: 33 Yes Take by mouth. [facility] dicyclomine 20 mg tablet 02-19 00:00: 00 01-09 00:00 :00 No [id number] 20mg Take 1 tablet by mouth 4 (four) times daily as needed for Abdominal pain. [facility] proMETHazin e 25 mg tablet 02-19 00:00: 00 11-27 00:00 :00 No [id number] 25mg Take 1 tablet by mouth every 6 (six) hours as needed for Nausea and Vomiting (N/V). [facility] ZONISAMIDE 100 mg capsule 11-15 00:00: 00 Yes TAKE 1 CAPSULE BY MOUTH TWICE A DAY [facility] ondansetron (ZOFRAN) 4 mg tablet 02-09 20:05: 01 Yes 4mg Take 4 mg by mouth every 8 (eight) hours as needed. [facility] pantoprazol e (PROTONIX) 40 mg EC tablet 02-09 20:05: 01 Yes 40mg Take 40 mg by mouth daily. [facility] LISINOPRIL- HYDROCHLORO THIAZIDE ORAL 02-09 20:05: 01 Yes Take by mouth. [facility] lisinopril- hydrochloro thiazide 20-12.5 mg per tablet 02-09 20:03: 30 Yes 1{tbl} Take 1 tablet by mouth daily. [facility] omega-3 fatty acids-vitam in E (FISH OIL) 1,000 mg capsule 02-09 19:59: 52 Yes 1g Take 1 g by mouth daily. [facility] MULTIVITAMI N ORAL 02-09 19:58: 14 Yes 1{tbl} Take 1 Tab by mouth daily. [facility] loratadine (CLARITIN LIQUI-GEL) 10 mg capsule 02-09 19:58: 14 Yes Take by mouth daily. [facility] ondansetron (ZOFRAN) 4 mg tablet 02-09 15:05: 01 Yes 4mg Take 4 mg by mouth every 8 (eight) hours as needed. [facility] pantoprazol e (PROTONIX) 40 mg EC tablet 02-09 15:05: 01 Yes 40mg Take 40 mg by mouth daily. [facility] lisinopril- hydrochloro thiazide 20-12.5 mg per tablet 02-09 15:03: 30 Yes 1{tbl} Take 1 tablet by mouth daily. [facility] omega-3 fatty acids-vitam in E (FISH OIL) 1,000 mg capsule 02-09 14:59: 52 Yes 1g Take 1 g by mouth daily. [facility] MULTIVITAMI N ORAL 02-09 14:58: 14 Yes 1{tbl} Take 1 Tab by mouth daily. [facility] loratadine (CLARITIN LIQUI-GEL) 10 mg capsule 02-09 14:58: 14 Yes Take by mouth daily. [facility] proMETHazin e (PHENERGAN) 25 mg tablet 11-20 00:00: 00 Yes 25mg Take 1 tablet by mouth every 6 (six) hours as needed for Nausea and Vomiting (N/V). [facility] carvedilol (COREG) 6.25 mg tablet 09-19 00:00: 00 12-02 00:00 :00 No 6.25mg Take 1 Tab by mouth 2 (two) times daily with meals. [facility] amLODIPine (NORVASC) 10 mg tablet 09-19 00:00: 00 12-02 00:00 :00 No 10mg Take 1 Tab by mouth daily. [facility] lisinopril (PRINIVIL,Z ESTRIL) 40 mg tablet 09-19 00:00: 00 11-27 00:00 :00 No 40mg Take 1 Tab by mouth daily. [facility] Immunizations Ordered Immunization Name Filled Immunization Name Date Status Comments Source SARS-COV-2 COVID-19 PFIZER BA-SUCROSE VACCINE (ROSE TOP) 2022-02-19 00:00:00 Completed [facility] SARS-COV-2 COVID-19 PFIZER BA-SUCROSE VACCINE (ROSE TOP) 2022-02-19 00:00:00 Completed [facility] SARS-COV-2 COVID-19 PFIZER BA-SUCROSE VACCINE (ROSE TOP) 2022-02-19 00:00:00 Completed [facility] SARS-COV-2 COVID-19 PFIZER BA-SUCROSE VACCINE (ROSE TOP) 2022-02-19 00:00:00 Completed [facility] SARS-COV-2 COVID-19 PFIZER BA-SUCROSE VACCINE (ROSE TOP) 2022-02-19 00:00:00 Completed [facility] SARS-COV-2 COVID-19 PFIZER BA-SUCROSE VACCINE (ROSE TOP) 2022-02-19 00:00:00 Completed [facility] SARS-COV-2 COVID-19 PFIZER BA-SUCROSE VACCINE (ROSE TOP) 2022-02-19 00:00:00 Completed [facility] SARS-COV-2 COVID-19 PFIZER BA-SUCROSE VACCINE (ROSE TOP) 2022-02-19 00:00:00 Completed [facility] SARS-COV-2 COVID-19 PFIZER BA-SUCROSE VACCINE (ROSE TOP) 2022-02-19 00:00:00 Completed [facility] SARS-COV-2 COVID-19 PFIZER VACCINE 2021-05-24 00:00:00 Completed [facility] SARS-COV-2 COVID-19 PFIZER VACCINE 2021-05-24 00:00:00 Completed [facility] SARS-COV-2 COVID-19 PFIZER VACCINE 2021-05-24 00:00:00 Completed [facility] SARS-COV-2 COVID-19 PFIZER VACCINE 2021-05-24 00:00:00 Completed [facility] SARS-COV-2 COVID-19 PFIZER VACCINE 2021-05-24 00:00:00 Completed [facility] SARS-COV-2 COVID-19 PFIZER VACCINE 2021-05-24 00:00:00 Completed [facility] SARS-COV-2 COVID-19 PFIZER VACCINE 2021-05-24 00:00:00 Completed [facility] SARS-COV-2 COVID-19 PFIZER VACCINE 2021-05-24 00:00:00 Completed [facility] SARS-COV-2 COVID-19 PFIZER VACCINE 2021-05-24 00:00:00 Completed [facility] SARS-COV-2 COVID-19 PFIZER VACCINE 2021-05-24 00:00:00 Completed [facility] SARS-COV-2 COVID-19 PFIZER VACCINE 2021-05-24 00:00:00 Completed [facility] SARS-COV-2 COVID-19 PFIZER VACCINE 2021-05-03 00:00:00 Completed [facility] SARS-COV-2 COVID-19 PFIZER VACCINE 2021-05-03 00:00:00 Completed [facility] SARS-COV-2 COVID-19 PFIZER VACCINE 2021-05-03 00:00:00 Completed [facility] SARS-COV-2 COVID-19 PFIZER VACCINE 2021-05-03 00:00:00 Completed [facility] SARS-COV-2 COVID-19 PFIZER VACCINE 2021-05-03 00:00:00 Completed [facility] SARS-COV-2 COVID-19 PFIZER VACCINE 2021-05-03 00:00:00 Completed [facility] SARS-COV-2 COVID-19 PFIZER VACCINE 2021-05-03 00:00:00 Completed [facility] SARS-COV-2 COVID-19 PFIZER VACCINE 2021-05-03 00:00:00 Completed [facility] SARS-COV-2 COVID-19 PFIZER VACCINE 2021-05-03 00:00:00 Completed [facility] SARS-COV-2 COVID-19 PFIZER VACCINE 2021-05-03 00:00:00 Completed [facility] SARS-COV-2 COVID-19 PFIZER VACCINE 2021-05-03 00:00:00 Completed [facility] SARS-COV-2 COVID-19 PFIZER VACCINE 2021-05-03 00:00:00 Completed [facility] SARS-COV-2 COVID-19 PFIZER VACCINE Unknown Completed [facility] SARS-COV-2 COVID-19 PFIZER BA-SUCROSE VACCINE (ROSE TOP) Unknown Completed [facility] SARS-COV-2 COVID-19 PFIZER BA-SUCROSE VACCINE (ROSE TOP) Unknown Completed [facility] SARS-COV-2 COVID-19 PFIZER VACCINE Unknown Completed [facility] SARS-COV-2 COVID-19 PFIZER VACCINE Unknown Completed [facility] SARS-COV-2 COVID-19 PFIZER BA-SUCROSE VACCINE (ROSE TOP) Unknown Completed [facility] SARS-COV-2 COVID-19 PFIZER VACCINE Unknown Completed [facility] SARS-COV-2 COVID-19 PFIZER BA-SUCROSE VACCINE (ROSE TOP) Unknown Completed [facility] SARS-COV-2 COVID-19 PFIZER VACCINE Unknown Completed [facility] SARS-COV-2 COVID-19 PFIZER BA-SUCROSE VACCINE (ROSE TOP) Unknown Completed [facility] SARS-COV-2 COVID-19 PFIZER VACCINE Unknown Completed [facility] SARS-COV-2 COVID-19 PFIZER BA-SUCROSE VACCINE (ROSE TOP) Unknown Completed [facility] SARS-COV-2 COVID-19 PFIZER VACCINE Unknown Completed [facility] SARS-COV-2 COVID-19 PFIZER BA-SUCROSE VACCINE (ROSE TOP) Unknown Completed [facility] SARS-COV-2 COVID-19 PFIZER VACCINE Unknown Completed [facility] SARS-COV-2 COVID-19 PFIZER BA-SUCROSE VACCINE (ROSE TOP) Unknown Completed [facility] SARS-COV-2 COVID-19 PFIZER VACCINE Unknown Completed [facility] SARS-COV-2 COVID-19 PFIZER BA-SUCROSE VACCINE (ROSE TOP) Unknown Completed [facility] SARS-COV-2 COVID-19 PFIZER VACCINE Unknown Completed [facility] SARS-COV-2 COVID-19 PFIZER BA-SUCROSE VACCINE (ROSE TOP) Unknown Completed [facility] SARS-COV-2 COVID-19 PFIZER VACCINE Unknown Completed [facility] SARS-COV-2 COVID-19 PFIZER BA-SUCROSE VACCINE (ROSE TOP) Unknown Completed [facility] SARS-COV-2 COVID-19 PFIZER VACCINE Unknown Completed [facility] SARS-COV-2 COVID-19 PFIZER BA-SUCROSE VACCINE (ROSE TOP) Unknown Completed [facility] SARS-COV-2 COVID-19 PFIZER VACCINE Unknown Completed [facility] SARS-COV-2 COVID-19 PFIZER BA-SUCROSE VACCINE (ROSE TOP) Unknown Completed [facility] SARS-COV-2 COVID-19 PFIZER VACCINE Unknown Completed [facility] SARS-COV-2 COVID-19 PFIZER BA-SUCROSE VACCINE (ROSE TOP) Unknown Completed [facility] Vital Signs Vital Name Observation Time Observation Value Comments S ource Systolic blood pressure 2024-04-03 05:10:00 111 mm[Hg] [facility] Diastolic blood pressure 2024-04-03 05:10:00 65 mm[Hg] [facility] Heart rate 2024-04-03 05:10:00 70 /min [facility] Respiratory rate 2024-04-03 05:10:00 23 /min [facility] Oxygen saturation in Arterial blood by Pulse oximetry 2024-04-03 05:10:00 97 /min [facility] Body temperature 2024-04-03 01:49:00 37.33 Radha [facility] Body height 2024-04-03 01:49:00 157.5 cm [facility] Body weight 2024-04-03 01:49:00 90.719 kg [facility] BMI 2024-04-03 01:49:00 36.58 kg/m2 [facility] Systolic blood pressure 2024-01-13 04:50:00 103 mm[Hg] [facility] Diastolic blood pressure 2024-01-13 04:50:00 72 mm[Hg] [facility] Heart rate 2024-01-13 04:50:00 85 /min [facility] Body temperature 2024-01-13 04:50:00 36.67 Radha [facility] Oxygen saturation in Arterial blood by Pulse oximetry 2024-01-13 04:50:00 99 /min [facility] Respiratory rate 2024-01-13 04:40:00 19 /min [facility] Body height 2024-01-13 03:06:00 160 cm [facility] Body weight 2024-01-13 03:06:00 81.194 kg [facility] BMI 2024-01-13 03:06:00 31.71 kg/m2 [facility] Systolic blood pressure 2024-01-10 20:00:00 95 mm[Hg] [facility] Diastolic blood pressure 2024-01-10 20:00:00 71 mm[Hg] [facility] Heart rate 2024-01-10 20:00:00 73 /min [facility] Body temperature 2024-01-10 20:00:00 36.83 Radha [facility] Respiratory rate 2024-01-10 20:00:00 23 /min [facility] Oxygen saturation in Arterial blood by Pulse oximetry 2024-01-10 20:00:00 94 /min [facility] Body weight 2024-01-10 09:00:00 81.466 kg [facility] BMI 2024-01-10 09:00:00 32.85 kg/m2 [facility] Body height 2024-01-09 21:10:00 157.5 cm [facility] Heart rate 2023-12-15 12:35:00 73 /min [facility] Respiratory rate 2023-12-15 12:35:00 18 /min [facility] Oxygen saturation in Arterial blood by Pulse oximetry 2023-12-15 12:35:00 95 /min [facility] Systolic blood pressure 2023-12-15 12:20:00 105 mm[Hg] [facility] Diastolic blood pressure 2023-12-15 12:20:00 64 mm[Hg] [facility] Body temperature 2023-12-15 12:20:00 36.11 Radha [facility] Body weight 2023-12-15 08:12:00 78.472 kg [facility] BMI 2023-12-15 08:12:00 30.65 kg/m2 [facility] Body height 2023-12-15 02:10:00 160 cm [facility] Systolic blood pressure 2023-12-03 23:00:00 106 mm[Hg] [facility] Diastolic blood pressure 2023-12-03 23:00:00 75 mm[Hg] [facility] Heart rate 2023-12-03 23:00:00 108 /min [facility] Body temperature 2023-12-03 23:00:00 36.61 Radha [facility] Respiratory rate 2023-12-03 23:00:00 17 /min [facility] Oxygen saturation in Arterial blood by Pulse oximetry 2023-12-03 23:00:00 96 /min [facility] Body height 2023-12-03 19:39:00 160 cm [facility] Body weight 2023-12-03 19:39:00 90.7 kg [facility] BMI 2023-12-03 19:39:00 35.43 kg/m2 [facility] Systolic blood pressure 2023-11-28 16:39:00 91 mm[Hg] [facility] Diastolic blood pressure 2023-11-28 16:39:00 65 mm[Hg] [facility] Heart rate 2023-11-28 16:39:00 105 /min [facility] Body temperature 2023-11-28 16:39:00 36.28 Radha [facility] Respiratory rate 2023-11-28 16:39:00 20 /min [facility] Oxygen saturation in Arterial blood by Pulse oximetry 2023-11-28 16:39:00 97 /min [facility] Body weight 2023-11-28 01:00:00 84 kg [facility] BMI 2023-11-28 01:00:00 32.81 kg/m2 [facility] Body height 2023-11-22 07:10:00 160 cm [facility] Systolic blood pressure 2023-11-23 19:43:25 123 mm[Hg] [facility] Diastolic blood pressure 2023-11-23 19:43:25 79 mm[Hg] [facility] Respiratory rate 2023-11-23 19:43:25 17 /min [facility] Oxygen saturation in Arterial blood by Pulse oximetry 2023-11-23 19:43:25 97 /min [facility] Heart rate 2023-11-23 19:20:46 122 /min [facility] Body temperature 2023-11-23 15:00:00 36.22 Radha [facility] Body height 2023-11-22 07:10:00 160 cm [facility] Body weight 2023-11-22 07:10:00 94.484 kg [facility] BMI 2023-11-22 07:10:00 35.16 kg/m2 [facility] Systolic blood pressure 2023-09-11 17:27:00 [...] Systolic blood pressure 2023-08-12 21:00:00 130 mm[Hg] [facility] Diastolic blood pressure 2023-08-12 21:00:00 85 mm[Hg] [facility] Heart rate 2023-08-12 21:00:00 106 /min [facility] Respiratory rate 2023-08-12 21:00:00 14 /min [facility] Oxygen saturation in Arterial blood by Pulse oximetry 2023-08-12 21:00:00 95 /min [facility] Body temperature 2023-08-12 20:34:54 37.22 Radha [facility] Body height 2023-08-12 19:47:00 157.5 cm [facility] Body weight 2023-08-12 19:47:00 81.647 kg [facility] BMI 2023-08-12 19:47:00 32.92 kg/m2 [facility] WEIGHT 2023-06-16 05:26:00 86.047 kg [...] Systolic blood pressure 2022-12-11 20:00:00 142 mm[Hg] [facility] Diastolic blood pressure 2022-12-11 20:00:00 90 mm[Hg] [facility] Respiratory rate 2022-12-11 20:00:00 24 /min [facility] Heart rate 2022-12-11 18:00:00 101 /min [facility] Oxygen saturation in Arterial blood by Pulse oximetry 2022-12-11 18:00:00 93 /min [facility] BMI 2022-12-11 13:55:00 35.43 kg/m2 [facility] Body temperature 2022-12-11 13:55:00 37.22 Radha [facility] Body weight 2022-12-11 13:55:00 90.719 kg [facility] Systolic blood pressure 2022-11-18 05:34:00 152 mm[Hg] [facility] Diastolic blood pressure 2022-11-18 05:34:00 98 mm[Hg] [facility] Heart rate 2022-11-18 05:34:00 88 /min [facility] Respiratory rate 2022-11-18 05:34:00 18 /min [facility] Oxygen saturation in Arterial blood by Pulse oximetry 2022-11-18 05:34:00 97 /min [facility] Body temperature 2022-11-17 22:28:00 37.06 Radha [facility] Body height 2022-11-17 22:28:00 160 cm [facility] Body weight 2022-11-17 22:28:00 99.791 kg [facility] BMI 2022-11-17 22:28:00 38.97 kg/m2 [facility] Heart rate 2022-08-02 02:02:00 108 /min [facility] Respiratory rate 2022-08-02 02:02:00 28 /min [facility] Oxygen saturation in Arterial blood by Pulse oximetry 2022-08-02 02:02:00 97 /min [facility] Body temperature 2022-08-02 01:00:00 36.44 Radha [facility] Systolic blood pressure 2022-08-01 23:29:00 145 mm[Hg] [facility] Diastolic blood pressure 2022-08-01 23:29:00 103 mm[Hg] [facility] Body weight 2022-08-01 09:16:00 97.977 kg [facility] BMI 2022-08-01 09:16:00 38.26 kg/m2 [facility] Body height 2022-07-31 21:54:00 160 cm [facility] Systolic blood pressure 2022-05-08 16:40:00 146 mm[Hg] [facility] Diastolic blood pressure 2022-05-08 16:40:00 96 mm[Hg] [facility] Heart rate 2022-05-08 16:40:00 112 /min [facility] Body temperature 2022-05-08 16:40:00 36.78 Radha [facility] Respiratory rate 2022-05-08 16:40:00 18 /min [facility] Oxygen saturation in Arterial blood by Pulse oximetry 2022-05-08 16:40:00 94 /min [facility] Body height 2022-05-05 23:44:00 160 cm [facility] Body weight 2022-05-05 23:37:00 81.647 kg [facility] BMI 2022-05-05 23:37:00 31.89 kg/m2 [facility] Systolic blood pressure 2022-04-15 18:52:00 104 mm[Hg] [facility] Diastolic blood pressure 2022-04-15 18:52:00 82 mm[Hg] [facility] Heart rate 2022-04-15 18:52:00 114 /min [facility] Oxygen saturation in Arterial blood by Pulse oximetry 2022-04-15 18:52:00 98 /min [facility] Body temperature 2022-04-15 16:14:00 36.28 Radha [facility] Respiratory rate 2022-04-15 16:14:00 17 /min [facility] Body height 2022-04-13 21:08:00 160 cm [facility] Body weight 2022-04-13 21:08:00 91.173 kg [facility] BMI 2022-04-13 21:08:00 35.61 kg/m2 [facility] Systolic blood pressure 2021-11-23 21:30:00 132 mm[Hg] [facility] Diastolic blood pressure 2021-11-23 21:30:00 76 mm[Hg] [facility] Heart rate 2021-11-23 21:30:00 95 /min [facility] Respiratory rate 2021-11-23 21:30:00 13 /min [facility] Oxygen saturation in Arterial blood by Pulse oximetry 2021-11-23 21:30:00 97 /min [facility] Body temperature 2021-11-23 20:15:00 37.56 Radha [facility] Systolic blood pressure 2021-03-17 03:00:00 117 mm[Hg] [facility] Diastolic blood pressure 2021-03-17 03:00:00 76 mm[Hg] [facility] Heart rate 2021-03-17 03:00:00 104 /min [facility] Respiratory rate 2021-03-17 03:00:00 28 /min [facility] Oxygen saturation in Arterial blood by Pulse oximetry 2021-03-17 03:00:00 96 /min [facility] Body temperature 2021-03-17 00:39:00 37.11 Radha [facility] Body height 2021-03-17 00:39:00 160 cm [facility] Body weight 2021-03-17 00:39:00 58.968 kg [facility] BMI 2021-03-17 00:39:00 23.03 kg/m2 [facility] Systolic blood pressure 2021-03-15 00:14:00 149 mm[Hg] [facility] Diastolic blood pressure 2021-03-15 00:14:00 78 mm[Hg] [facility] Heart rate 2021-03-15 00:14:00 100 /min [facility] Body temperature 2021-03-15 00:14:00 37.33 Radha [facility] Respiratory rate 2021-03-15 00:14:00 24 /min [facility] Body height 2021-03-15 00:14:00 160 cm [facility] Body weight 2021-03-15 00:14:00 58.968 kg [facility] BMI 2021-03-15 00:14:00 23.03 kg/m2 [facility] Oxygen saturation in Arterial blood by Pulse oximetry 2021-03-15 00:14:00 98 /min [facility] Systolic blood pressure 2021-02-19 18:00:00 131 mm[Hg] [facility] Diastolic blood pressure 2021-02-19 18:00:00 80 mm[Hg] [facility] Heart rate 2021-02-19 18:00:00 83 /min [facility] Respiratory rate 2021-02-19 18:00:00 18 /min [facility] Oxygen saturation in Arterial blood by Pulse oximetry 2021-02-19 18:00:00 100 /min [facility] Body temperature 2021-02-19 15:47:00 37 Radha [facility] Body height 2021-02-19 15:47:00 160 cm [facility] Body weight 2021-02-19 15:47:00 58.968 kg [facility] BMI 2021-02-19 15:47:00 23.03 kg/m2 [facility] Heart rate 2023-09-08 08:54:00 118 /min [facility] Respiratory rate 2023-09-08 08:54:00 21 /min [facility] Oxygen saturation in Arterial blood by Pulse oximetry 2023-09-08 08:54:00 100 /min [facility] Systolic blood pressure 2023-09-08 08:32:00 110 mm[Hg] [facility] Diastolic blood pressure 2023-09-08 08:32:00 77 mm[Hg] [facility] Body temperature 2023-09-08 08:32:00 36.06 Radha [facility] Body height 2023-09-04 00:58:00 157.5 cm [facility] Body weight 2023-09-04 00:58:00 80 kg [facility] BMI 2023-09-04 00:58:00 32.26 kg/m2 [facility] Heart rate 2023-06-16 17:00:00 108 /min [facility] Systolic blood pressure 2023-06-16 15:31:00 101 mm[Hg] [facility] Diastolic blood pressure 2023-06-16 15:31:00 81 mm[Hg] [facility] Body temperature 2023-06-16 15:31:00 36.61 Radha [facility] Respiratory rate 2023-06-16 15:31:00 18 /min [facility] Oxygen saturation in Arterial blood by Pulse oximetry 2023-06-16 15:31:00 94 /min [facility] Body weight 2023-06-16 05:26:00 86.047 kg [facility] BMI 2023-06-16 05:26:00 33.60 kg/m2 [facility] Body height 2023-06-13 04:00:00 160 cm [facility] Systolic blood pressure 2023-06-04 13:02:00 93 mm[Hg] [facility] Diastolic blood pressure 2023-06-04 13:02:00 57 mm[Hg] [facility] Heart rate 2023-06-04 13:02:00 101 /min [facility] Respiratory rate 2023-06-04 13:02:00 22 /min [facility] Oxygen saturation in Arterial blood by Pulse oximetry 2023-06-04 13:02:00 95 /min room air [facility] Body temperature 2023-06-04 11:46:00 35.28 Radha [facility] Systolic blood pressure 2023-05-28 16:00:00 154 mm[Hg] [facility] Diastolic blood pressure 2023-05-28 16:00:00 82 mm[Hg] [facility] Heart rate 2023-05-28 16:00:00 89 /min [facility] Body temperature 2023-05-28 16:00:00 36.67 Radha [facility] Respiratory rate 2023-05-28 16:00:00 16 /min [facility] Oxygen saturation in Arterial blood by Pulse oximetry 2023-05-28 16:00:00 97 /min [facility] Body height 2023-05-28 07:00:00 157.5 cm [facility] Body weight 2023-05-28 07:00:00 87.544 kg [facility] BMI 2023-05-28 07:00:00 35.30 kg/m2 [facility] Body height 2023-05-26 09:12:00 157.5 cm [facility] Body weight 2023-05-26 09:12:00 87.091 kg [facility] BMI 2023-05-26 09:12:00 35.12 kg/m2 [facility] Respiratory rate 2023-04-02 16:35:00 18 /min [facility] Oxygen saturation in Arterial blood by Pulse oximetry 2023-04-02 16:35:00 98 /min [facility] Systolic blood pressure 2023-04-02 12:00:00 147 mm[Hg] [facility] Diastolic blood pressure 2023-04-02 12:00:00 97 mm[Hg] [facility] Heart rate 2023-04-02 12:00:00 106 /min [facility] Body temperature 2023-04-02 12:00:00 36.28 Radha [facility] Body height 2023-03-30 02:14:00 157.5 cm [facility] Body weight 2023-03-30 02:14:00 92.08 kg [facility] BMI 2023-03-30 02:14:00 37.13 kg/m2 [facility] Respiratory rate 2022-08-03 14:40:00 18 /min [facility] Systolic blood pressure 2022-08-03 12:13:00 112 mm[Hg] [facility] Diastolic blood pressure 2022-08-03 12:13:00 77 mm[Hg] [facility] Heart rate 2022-08-03 12:13:00 115 /min [facility] Oxygen saturation in Arterial blood by Pulse oximetry 2022-08-03 12:13:00 93 /min [facility] Body temperature 2022-08-03 12:00:00 36.83 Radha [facility] Body height 2022-08-02 21:52:00 160.2 cm [facility] Body weight 2022-08-02 21:52:00 95 kg [facility] BMI 2022-08-02 21:52:00 37.02 kg/m2 [facility] BP Systolic 2022-07-24 13:31:00 136 mm[Hg] [...] BLOOD 2024-04-03 01:59:00 Tammy Chrissy [facility] BASIC METABOLIC PANEL (NA, K , CL, CO2, GLUCOSE, BUN, CREATININE, CA) 2024-04-03 01:58:00 Tammy Chrissy [facility] CBC WITH DIFF 2024-04-03 01:58:00 Tammy [facility] N-TERMINAL PRO-BNP 2024-04-03 01:58:00 Tammy [facility] EKG-12 LEAD 2024-01-13 04:42:14 Radha Wyatt [facility] TROPONIN I 2024-01-13 03:20:00 Radha Wyatt [facility] COMP. METABOLIC PANEL ([id number]) 2024-01-13 03:20:00 Radha Wyatt [facility] CBC WITH DIFF 2024-01-13 03:20:00 Radha Wyatt [facility] TRANSTHORACIC ECHO (TTE) LIMITED W/ DOPPLER, COLOR AND CONTRAST 2024-01-10 13:07:00 Darrick Altamirano [facility] MAGNESIUM 2024-01-10 09:16:00 Darrick Altamirano [facility] TROPONIN I 2024-01-10 09:16:00 Darrick Altamirano [facility] BASIC METABOLIC PANEL (NA, K , CL, CO2, GLUCOSE, BUN, CREATININE, CA) 2024-01-10 09:16:00 Darrick Altamirano [facility] LIPID PANEL ([id number])(TOTAL CHOLESTEROL, TRIGLYCERIDES, HDL) 2024-01-10 09:16:00 Darrick Altamirano [facility] CBC WITH DIFF 2024-01-10 09:16:00 Darrick Altamirano [facility] PROTHROMBIN TIME / INR 2024-01-10 09:16:00 Darrick Altamirano [facility] ACTIVATED PARTIAL THRMPLAS DAVID 2024-01-10 09:16:00 Darrick Altamirano [facility] N-TERMINAL PRO-BNP 2024-01-10 09:16:00 Darrick Altamirano [facility] PHOSPHORUS 2024-01-10 04:58:00 Darrick Altamirano [facility] BLOOD CULTURE SCREEN 2024-01-10 02:39:00 Alfonso Alvarado [facility] BLOOD CULTURE SCREEN 2024-01-10 02:20:00 Alfonso Alvarado [facility] LACTIC ACID WHOLE BLOOD 2024-01-10 01:52:00 Alfonso Alvarado [facility] CT CHEST PULMONARY ANGIOGRAM 2024-01-09 23:59:01 Abundio [facility] XR CHEST 1 VW 2024-01-09 21:49:00 Abundio [facility] TROPONIN I 2024-01-09 21:39:00 Abundio zhang [facility] COMP. METABOLIC PANEL ([id number]) 2024-01-09 21:39:00 Olena Del Castillo [facility] CBC WITH DIFF 2024-01-09 21:39:00 Abundio [facility] D-DIMER 2024-01-09 21:39:00 Abundio [facility] N-TERMINAL PRO-BNP 2024-01-09 21:39:00 Abundio [facility] HB ECG ROUTINE & RHYTHM STRIP 2024-01-09 21:13:02 Abundio [facility] POCT GLUCOSE (AUTOMATED) 2023-12-15 12:43:00 Reema [facility] MAGNESIUM 2023-12-15 10:26:00 Reema [facility] TROPONIN I 2023-12-15 10:26:00 Reema [facility] BASIC METABOLIC PANEL (NA, K , CL, CO2, GLUCOSE, BUN, CREATININE, CA) 2023-12-15 10:26:00 Reema [facility] CBC WITH DIFF 2023-12-15 10:26:00 Daria [facility] N-TERMINAL PRO-BNP 2023-12-15 10:26:00 Reema [facility] TROPONIN I 2023-12-15 03:21:00 Reema [facility] FREE T4 2023-12-15 03:21:00 Reema [facility] DIGOXIN 2023-12-15 03:21:00 Daria [facility] POCT GLUCOSE (AUTOMATED) 2023-12-15 00:56:00 Reema [facility] TROPONIN I 2023-12-14 21:05:00 Singer [facility] THYROID STIMULATING HORMONE 2023-12-14 21:05:00 Reema [facility] FREE T3 2023-12-14 21:05:00 Reema [facility] XR CHEST 1 VW 2023-12-14 19:25:00 Singer [facility] TROPONIN I 2023-12-14 19:19:00 Singer [facility] COMP. METABOLIC PANEL ([id number]) 2023-12-14 19:19:00 Singer [facility] CBC WITH DIFF 2023-12-14 19:19:00 Singer [facility] D-DIMER 2023-12-14 19:19:00 Singer [facility] N-TERMINAL PRO-BNP 2023-12-14 19:19:00 Singer [facility] EKG-12 LEAD 2023-12-14 18:38:57 Tal Benavidez [facility] POCT GLUCOSE (AUTOMATED) 2023-12-03 21:23:00 Connor Renee [facility] BASIC METABOLIC PANEL (NA, K , CL, CO2, GLUCOSE, BUN, CREATININE, CA) 2023-12-03 17:58:00 Mukesh Tabor [facility] POCT GLUCOSE (AUTOMATED) 2023-12-03 16:51:00 Connor Renee [facility] POCT GLUCOSE (AUTOMATED) 2023-12-03 13:00:00 Connor Renee [facility] MAGNESIUM 2023-12-03 09:21:00 [facility] HE[facility] ([id number]) (ALB,T.PRO,BILI T,BU/BC,ALT,AST,ALK PHOS) 2023-12-03 09:21:00 Mariaelena Gross [facility] BASIC METABOLIC PANEL (NA, K , CL, CO2, GLUCOSE, BUN, CREATININE, CA) 2023-12-03 09:21:00 Mariaelena Gross [facility] AC PANEL 21 + LACTIC ACID 2023-12-03 01:45:00 Ginny Mariaelena [facility] MRSA / MSSA SCREEN BY PCRRED 2023-12-03 01:45:00 Mariaelena Gross [facility] CT CHEST PULMONARY ANGIOGRAM 2023-12-02 19:32:14 Connor Renee [facility] XR CHEST 1 VW 2023-12-02 19:04:00 Connor Renee [facility] BLOOD CULTURE SCREEN 2023-12-02 18:53:00 Connor Renee [facility] TROPONIN I 2023-12-02 18:53:00 Connor Renee [facility] COMP. METABOLIC PANEL ([id number]) 2023-12-02 18:53:00 Connor Renee [facility] CBC WITH DIFF 2023-12-02 18:53:00 Connor Renee [facility] RAPID INFLUENZA A/B 2023-12-02 18:53:00 Connor Renee [facility] N-TERMINAL PRO-BNP 2023-12-02 18:53:00 Connor Renee [facility] COVID-19 (ID NOW RAPID TESTING) 2023-12-02 18:53:00 Connor Renee [facility] BLOOD CULTURE SCREEN 2023-12-02 18:49:00 Connor Renee [facility] AC ABG + LACTIC ACID 2023-12-02 18:26:00 Connor Renee [facility] HB ECG ROUTINE & RHYTHM STRIP 2023-12-02 18:06:10 Connor Renee [facility] POCT GLUCOSE (AUTOMATED) 2023-11-28 16:40:00 Cr Altamirano [facility] PHOSPHORUS 2023-11-28 09:22:00 Leander [facility] MAGNESIUM 2023-11-28 09:22:00 Leander [facility] COMP. METABOLIC PANEL ([id number]) 2023-11-28 09:22:00 Leander [facility] CBC WITH DIFF 2023-11-28 09:22:00 Leander [facility] N-TERMINAL PRO-BNP 2023-11-28 09:22:00 Torrey Baez [facility] POCT GLUCOSE (AUTOMATED) 2023-11-28 01:31:00 Lorenzo Ventura [facility] POCT GLUCOSE (AUTOMATED) 2023-11-27 21:45:00 Lorenzo Ventura [facility] POCT GLUCOSE (AUTOMATED) 2023-11-27 16:30:00 Lorenzo Ventura [facility] POCT GLUCOSE (AUTOMATED) 2023-11-27 12:39:00 Lorenzo Ventura [facility] LACTIC ACID WHOLE BLOOD 2023-11-27 06:35:00 Leander [facility] MAGNESIUM 2023-11-27 06:34:00 Leander [facility] COMP. METABOLIC PANEL ([id number]) 2023-11-27 06:34:00 Leander [facility] URINE DRUG (IMMUNOASSAY) - COMPREHENSIVE DRUG SCREEN 2023-11-27 03:59:00 Leander [facility] POCT GLUCOSE (AUTOMATED) 2023-11-27 02:25:00 Lorenzo Ventura [facility] CT HEAD WO CONTRAST 2023-11-26 21:56:31 Leander [facility] MAGNESIUM 2023-11-26 21:32:00 Leander [facility] COMP. METABOLIC PANEL ([id number]) 2023-11-26 21:32:00 Leander [facility] POCT GLUCOSE (AUTOMATED) 2023-11-26 21:11:00 Lorenzo Ventura [facility] VALPROIC ACID, FREE 2023-11-26 18:07:00 Leander [facility] KEPPRA (LEVETIRACETAM) 2023-11-26 18:07:00 Leander [facility] LACTIC ACID WHOLE BLOOD 2023-11-26 18:07:00 Leander [facility] POCT GLUCOSE (AUTOMATED) 2023-11-26 17:05:00 Lorenzo Ventura [facility] MAGNESIUM 2023-11-26 13:28:00 Raghu Castellanos [facility] VITAMIN B12, LEVEL 2023-11-26 13:28:00 Leander [facility] FOLATE 2023-11-26 13:28:00 Leander [facility] COMP. METABOLIC PANEL ([id number]) 2023-11-26 13:28:00 Raghu Castellanos [facility] CBC WITH DIFF 2023-11-26 13:28:00 Leander [facility] LACTIC ACID WHOLE BLOOD 2023-11-26 09:52:00 Robinson Shin [facility] POCT GLUCOSE (AUTOMATED) 2023-11-26 02:13:00 Lorenzo Ventura [facility] LACTIC ACID WHOLE BLOOD 2023-11-26 00:53:00 Raghu Castellanos [facility] ELECTROENCEPHALOGRAM 2023-11-26 00:00:00 Leander [facility] POCT GLUCOSE (AUTOMATED) 2023-11-25 20:59:00 Lorenzo Ventura [facility] LACTIC ACID WHOLE BLOOD 2023-11-25 20:56:00 Raghu Castellanos [facility] MAGNESIUM 2023-11-25 20:55:00 Raghu Castellanos [facility] COMP. METABOLIC PANEL ([id number]) 2023-11-25 20:55:00 Raghu Castellanos [facility] POCT GLUCOSE (AUTOMATED) 2023-11-25 16:58:00 Lorenzo Ventura [facility] POCT GLUCOSE (AUTOMATED) 2023-11-25 13:04:00 Lorenzo Ventura [facility] LACTIC ACID WHOLE BLOOD 2023-11-25 09:25:00 Jessica [facility] MAGNESIUM 2023-11-25 09:24:00 Raghu Castellanos [facility] COMP. METABOLIC PANEL ([id number]) 2023-11-25 09:24:00 Jessica [facility] CBC WITH DIFF 2023-11-25 09:24:00 Leander [facility] MAGNESIUM 2023-11-25 04:52:00 Leander [facility] COMP. METABOLIC PANEL ([id number]) 2023-11-25 04:52:00 Leander [facility] LACTIC ACID WHOLE BLOOD 2023-11-25 04:52:00 Leander [facility] POCT GLUCOSE (AUTOMATED) 2023-11-25 03:00:00 Lorenzo Ventura [facility] TROPONIN I 2023-11-25 02:59:00 Jessica [facility] COMP. METABOLIC PANEL ([id number]) 2023-11-25 02:59:00 Jessica [facility] HIV 1/2 AG-AB WITH REFLEX 2023-11-25 02:59:00 Jessica [facility] CT ABDOMEN PELVIS W CONTRAST 2023-11-24 22:24:00 Leander [facility] POCT GLUCOSE (AUTOMATED) 2023-11-24 21:21:00 Lorenzo Hemrosalie [facility] MAGNESIUM 2023-11-24 21:08:00 Leander [facility] COMP. METABOLIC PANEL ([id number]) 2023-11-24 21:08:00 Leander [facility] LACTIC ACID WHOLE BLOOD 2023-11-24 21:08:00 Nestor Lopez [facility] POCT GLUCOSE (AUTOMATED) 2023-11-24 17:43:00 Lorenzo Hemrosalie [facility] POCT GLUCOSE (AUTOMATED) 2023-11-24 17:43:00 Lorenzo Ventura [facility] MAGNESIUM 2023-11-24 15:47:00 Tabor, [facility] COMP. METABOLIC PANEL ([id number]) 2023-11-24 15:47:00 Leander [facility] ACTIVATED PARTIAL THRMPLAS DAVID 2023-11-24 15:47:00 Uli [facility] LACTIC ACID WHOLE BLOOD 2023-11-24 15:47:00 Tabor [facility] MAGNESIUM 2023-11-24 15:47:00 Tabor, [facility] COMP. METABOLIC PANEL ([id number]) 2023-11-24 15:47:00 Tabor, [facility] ACTIVATED PARTIAL THRMPLAS DAVID 2023-11-24 15:47:00 Uli [facility] LACTIC ACID WHOLE BLOOD 2023-11-24 15:47:00 Tabor, [facility] POCT GLUCOSE (AUTOMATED) 2023-11-24 12:33:00 Lorenzo Hemrosalie [facility] POCT GLUCOSE (AUTOMATED) 2023-11-24 12:33:00 Lorenzo Hemrosalie [facility] MAGNESIUM 2023-11-24 10:03:00 Leander [facility] COMP. METABOLIC PANEL ([id number]) 2023-11-24 10:03:00 Leander [facility] CBC WITH DIFF 2023-11-24 10:03:00 Tabor [facility] LACTIC ACID WITH 3 HOUR REFLEX 2023-11-24 10:03:00 Leander [facility] MAGNESIUM 2023-11-24 10:03:00 Leander [facility] COMP. METABOLIC PANEL ([id number]) 2023-11-24 10:03:00 Leander [facility] CBC WITH DIFF 2023-11-24 10:03:00 Leander [facility] LACTIC ACID WITH 3 HOUR REFLEX 2023-11-24 10:03:00 Leander [facility] ACTIVATED PARTIAL THRMPLAS DAVID 2023-11-24 06:13:00 Uli [facility] ACTIVATED PARTIAL THRMPLAS DAVID 2023-11-24 06:13:00 Uli [facility] POCT GLUCOSE (AUTOMATED) 2023-11-24 03:15:00 Lorenzo Ventura [facility] POCT GLUCOSE (AUTOMATED) 2023-11-24 03:15:00 Lorenzo Ventura [facility] ACTIVATED PARTIAL THRMPLAS DAVID 2023-11-23 23:09:00 Uli [facility] ACTIVATED PARTIAL THRMPLAS DAVID 2023-11-23 23:09:00 Uli [facility] POCT GLUCOSE (AUTOMATED) 2023-11-23 21:28:00 Lorenzo Ventura [facility] POCT GLUCOSE (AUTOMATED) 2023-11-23 21:28:00 Lorenzo Ventura [facility] CATH PROCEDURE LOG 2023-11-23 20:38:36 Lisandra [facility] CATH PROCEDURE LOG 2023-11-23 20:38:36 Lisandra [facility] CARDIAC CATHETERIZATION 2023-11-23 20:11:00 Lisandra [facility] CARDIAC CATHETERIZATION 2023-11-23 20:11:00 Lisandra [facility] CARDIAC CATHETERIZATION 2023-11-23 20:11:00 Lisandra [facility] CARDIAC CATHETERIZATION 2023-11-23 20:11:00 Altamirano, Cr [facility] POCT GLUCOSE (AUTOMATED) 2023-11-23 17:18:00 Lorenzo Hemrosaile [facility] POCT GLUCOSE (AUTOMATED) 2023-11-23 17:18:00 Lorenzo [facility] POCT GLUCOSE (AUTOMATED) 2023-11-23 16:50:00 Lorenzo [facility] POCT GLUCOSE (AUTOMATED) 2023-11-23 16:50:00 Lorenzo [facility] ACTIVATED PARTIAL THRMPLAS DAVID 2023-11-23 15:13:00 Uli [facility] ACTIVATED PARTIAL THRMPLAS DAVID 2023-11-23 15:13:00 Uli [facility] LACTIC ACID WHOLE BLOOD 2023-11-23 15:12:00 Aleida [facility] LACTIC ACID WHOLE BLOOD 2023-11-23 15:12:00 Aleida [facility] POCT GLUCOSE (AUTOMATED) 2023-11-23 12:47:00 Lorenzo Urielsirishanc [facility] POCT GLUCOSE (AUTOMATED) 2023-11-23 12:47:00 Lorenzo Ventura [facility] MAGNESIUM 2023-11-23 07:52:00 Louise [facility] HEPATIC FUNCTION PANEL ([id number]) (ALB,T.PRO,BILI T,BU/BC,ALT,AST,ALK PHOS) 2023-11-23 07:52:00 Mukesh Tabor [facility] BASIC METABOLIC PANEL (NA, K , CL, CO2, GLUCOSE, BUN, CREATININE, CA) 2023-11-23 07:52:00 Louise [facility] CBC WITH DIFF 2023-11-23 07:52:00 Louise [facility] ACTIVATED PARTIAL THRMPLAS DAVID 2023-11-23 07:52:00 Uli [facility] LACTIC ACID WHOLE BLOOD 2023-11-23 07:52:00 Robinson Shin [facility] MAGNESIUM 2023-11-23 07:52:00 Louise [facility] HEPATIC FUNCTION PANEL ([id number]) (ALB,T.PRO,BILI T,BU/BC,ALT,AST,ALK PHOS) 2023-11-23 07:52:00 Mukesh Tabor [facility] BASIC METABOLIC PANEL (NA, K , CL, CO2, GLUCOSE, BUN, CREATININE, CA) 2023-11-23 07:52:00 Louise [facility] CBC WITH DIFF 2023-11-23 07:52:00 Louise [facility] ACTIVATED PARTIAL THRMPLAS DAVID 2023-11-23 07:52:00 Cris Mcnally [facility] LACTIC ACID WHOLE BLOOD 2023-11-23 07:52:00 Aleida [facility] LACTIC ACID WHOLE BLOOD 2023-11-23 05:00:00 Aleida [facility] LACTIC ACID WHOLE BLOOD 2023-11-23 05:00:00 Aleida [facility] LACTIC ACID WHOLE BLOOD 2023-11-23 03:12:00 Aleida [facility] LACTIC ACID WHOLE BLOOD 2023-11-23 03:12:00 Aleida [facility] LACTIC ACID WHOLE BLOOD 2023-11-23 00:57:00 Aleida [facility] LACTIC ACID WHOLE BLOOD 2023-11-23 00:57:00 Aleida [facility] POCT GLUCOSE (AUTOMATED) 2023-11-23 00:56:00 Lorenzo Ventura [facility] POCT GLUCOSE (AUTOMATED) 2023-11-23 00:56:00 Lorenzo Ventura [facility] LACTIC ACID WHOLE BLOOD 2023-11-22 23:49:00 [facility] 2023-11-22 23:49:00 Aleida [facility] POCT GLUCOSE (AUTOMATED) 2023-11-22 21:49:00 Lorenzo Ventura [facility] POCT GLUCOSE (AUTOMATED) 2023-11-22 21:49:00 Lorenzo Ventura [facility] LACTIC ACID WHOLE BLOOD 2023-11-22 21:41:00 Leander [facility] LACTIC ACID WHOLE BLOOD 2023-11-22 21:41:00 Leander [facility] POCT GLUCOSE (AUTOMATED) 2023-11-22 21:01:00 Lorenzo Hemrosalie [facility] POCT GLUCOSE (AUTOMATED) 2023-11-22 21:01:00 Lorenzo Ventura [facility] ACTIVATED PARTIAL THRMPLAS DAVID 2023-11-22 19:46:00 Uli [facility] LACTIC ACID WHOLE BLOOD 2023-11-22 19:46:00 Leander [facility] ACTIVATED PARTIAL THRMPLAS DAVID 2023-11-22 19:46:00 Uli [facility] LACTIC ACID WHOLE BLOOD 2023-11-22 19:46:00 Leander [facility] LACTIC ACID WHOLE BLOOD 2023-11-22 17:22:00 Faby [facility] LACTIC ACID WHOLE BLOOD 2023-11-22 17:22:00 Faby [facility] POCT GLUCOSE (AUTOMATED) 2023-11-22 17:00:00 Ignacio [facility] POCT GLUCOSE (AUTOMATED) 2023-11-22 17:00:00 Ignacio [facility] LOWER EXTREMITY ARTERIAL DUPLEX BILATERAL - BY VASCULAR LAB 2023-11-22 16:43:47 Faby [facility] LOWER EXTREMITY ARTERIAL DUPLEX BILATERAL - BY VASCULAR LAB 2023-11-22 16:43:47 Faby [facility] TRANSTHORACIC ECHO (TTE) COMPLETE W/ CONTRAST 2023-11-22 15:50:00 [facility] (TTE) COMPLETE W/ CONTRAST 2023-11-22 15:50:00 Cris Mcnally [facility] US ABDOMEN LIMITED 2023-11-22 14:54:18 Faby [facility] ABDOMEN LIMITED 2023-11-22 14:54:18 Faby [facility] HB ECG ROUTINE & RHYTHM STRIP 2023-11-22 14:28:42 Louise [facility] HB ECG ROUTINE & RHYTHM STRIP 2023-11-22 14:28:42 Louise [facility] COMP. METABOLIC PANEL ([id number]) 2023-11-22 14:26:00 Uli [facility] IRON PANEL 2023-11-22 14:26:00 Uli [facility] LACTIC ACID WHOLE BLOOD 2023-11-22 14:26:00 Faby [facility] COMP. METABOLIC PANEL ([id number]) 2023-11-22 14:26:00 Uli [facility] IRON PANEL 2023-11-22 14:26:00 Uli [facility] LACTIC ACID WHOLE BLOOD 2023-11-22 14:26:00 Faby [facility] POCT GLUCOSE (AUTOMATED) 2023-11-22 13:26:00 Ignacio [facility] POCT GLUCOSE (AUTOMATED) 2023-11-22 13:26:00 Ignacio [facility] CT CHEST PULMONARY ANGIOGRAM 2023-11-22 13:10:36 Uli [facility] CT CHEST PULMONARY ANGIOGRAM 2023-11-22 13:10:36 Uli [facility] PHOSPHORUS 2023-11-22 11:45:00 Uli [facility] CREATINE KINASE 2023-11-22 11:45:00 Louise [facility] FERRITIN SERUM 2023-11-22 11:45:00 Uli [facility] TROPONIN I 2023-11-22 11:45:00 Uli [facility] LIPID PANEL ([id number])(TOTAL CHOLESTEROL, TRIGLYCERIDES, HDL) 2023-11-22 11:45:00 Uli [facility] CBC WITH DIFF 2023-11-22 11:45:00 Uli [facility] GLYCOSYLATED HEMOGLOBIN (A1C) 2023-11-22 11:45:00 Uli [facility] PHOSPHORUS 2023-11-22 11:45:00 Uli [facility] CREATINE KINASE 2023-11-22 11:45:00 Janeth Gil [facility] FERRITIN SERUM 2023-11-22 11:45:00 Uli [facility] TROPONIN I 2023-11-22 11:45:00 Uli [facility] LIPID PANEL ([id number])(TOTAL CHOLESTEROL, TRIGLYCERIDES, HDL) 2023-11-22 11:45:00 Uli [facility] CBC WITH DIFF 2023-11-22 11:45:00 Uli [facility] GLYCOSYLATED HEMOGLOBIN (A1C) 2023-11-22 11:45:00 Uli [facility] BLOOD CULTURE SCREEN 2023-11-22 09:37:00 Uli [facility] BLOOD CULTURE SCREEN 2023-11-22 09:37:00 Uli [facility] BLOOD CULTURE SCREEN 2023-11-22 09:36:00 Uli [facility] BLOOD CULTURE SCREEN 2023-11-22 09:36:00 Uli [facility] US LOWER EXTREMITY VEIN WITH COMPRESSION BILATERAL (ONLY FOR RULE OUT DVT) 2023-11-22 08:09:01 Uli [facility] US LOWER EXTREMITY VEIN WITH COMPRESSION BILATERAL (ONLY FOR RULE OUT DVT) 2023-11-22 08:09:01 Uli [facility] LACTIC ACID WHOLE BLOOD 2023-11-22 08:03:00 Uli [facility] LACTIC ACID WHOLE BLOOD 2023-11-22 08:03:00 Uli [facility] MAGNESIUM 2023-11-22 08:02:00 Uli [facility] TROPONIN I 2023-11-22 08:02:00 Uli [facility] PROTHROMBIN TIME / INR 2023-11-22 08:02:00 Uli [facility] D-DIMER 2023-11-22 08:02:00 Uli [facility] ACTIVATED PARTIAL THRMPLAS DAVID 2023-11-22 08:02:00 Uli, [facility] PROCALCITONIN 2023-11-22 08:02:00 Uli, [facility] MAGNESIUM 2023-11-22 08:02:00 Uli, [facility] TROPONIN I 2023-11-22 08:02:00 Uli, [facility] PROTHROMBIN TIME / INR 2023-11-22 08:02:00 Uli, [facility] D-DIMER 2023-11-22 08:02:00 Uli, [facility] ACTIVATED PARTIAL THRMPLAS DAVID 2023-11-22 08:02:00 Uli, [facility] PROCALCITONIN 2023-11-22 08:02:00 Uli, [facility] XR SHOULDER 2+ VW RIGHT 2023-11-22 07:33:00 Uli, [facility] XR SHOULDER 2+ VW RIGHT 2023-11-22 07:33:00 Uli, [facility] URINALYSIS 2023-11-22 04:33:00 [facility]IMMUNOASSAY[facility] - COMPREHENSIVE DRUG SCREEN W/O REFLEX 2023-11-22 04:33:00 [facility]23-11-22 04:33:00 [facility] (IMMUNOASSAY) - COMPREHENSIVE DRUG SCREEN W/O REFLEX 2023-11-22 04:33:00 Megan Rondon [facility] PROTHROMBIN TIME / INR 2023-11-22 04:25:00 Megan Rondon [facility] ACTIVATED PARTIAL THRMPLAS DAVID 2023-11-22 04:25:00 Megan Rondon [facility] PROTHROMBIN TIME / INR 2023-11-22 04:25:00 Megan Rondon [facility] ACTIVATED PARTIAL THRMPLAS DAVID 2023-11-22 04:25:00 Megan Rondon [facility] CRITICAL CARE 2023-11-22 04:18:14 Megan Rondon [facility] CRITICAL CARE 2023-11-22 04:18:14 Megan Rondon [facility] FREE T4 2023-11-22 02:57:00 Megan Rondon [facility] THYROID STIMULATING HORMONE 2023-11-22 02:57:00 [facility]UENZA A/B 2023-11-22 02:57:00 [facility] (ID NOW RAPID TESTING) 2023-11-22 02:57:00 [facility] COVID INTERPRETATION 2023-11-22 02:57:00 Megan Rondon [facility] FREE T4 2023-11-22 02:57:00 [facility] HORMONE 2023-11-22 02:57:00 [facility] RAPID INFLUENZA A/B 2023-11-22 02:57:00 [facility] (ID NOW RAPID TESTING) 2023-11-22 02:57:00 Megan Rondon [facility] LAB ONLY COVID INTERPRETATION 2023-11-22 02:57:00 [facility] AMYL[facility] 2023-11-22 02:52:00 [facility] LIPASE 2023-11-22 02:52:00 Alcon [facility] TROPONIN I 2023-11-22 02:52:00 [facility] COMP. METABOLIC PANEL ([id number]) 2023-11-22 02:52:00 [facility] CBC WITH DIFF 2023-11-22 02:52:00 [facility] N-TERMINAL PRO-BNP 2023-11-22 02:52:00 [facility] AMYLASE 2023-11-22 02:52:00 [facility] LIPASE 2023-11-22 02:52:00 Alcon [facility] TROPONIN I 2023-11-22 02:52:00 [facility] COMP. METABOLIC PANEL ([id number]) 2023-11-22 02:52:00 [facility] WITH DIFF 2023-11-22 02:52:00 Megan Rondon [facility] N-TERMINAL PRO-BNP 2023-11-22 02:52:00 Megan Rondon [facility] XR CHEST 1 VW 2023-11-22 02:34:13 Megan Rondon [facility] XR CHEST 1 VW 2023-11-22 02:34:13 Megan Rondon [facility] HB ECG ROUTINE & RHYTHM STRIP 2023-11-22 02:16:24 Megan Rondon [facility] POCT-GLUCOSE METER 2023-09-08 08:40:00 Bud [facility] CBC W/PLT COUNT & AUTO DIFFERENTIAL 2023-09-08 04:16:00 [facility] BASIC METABOLIC PANEL 2023-09-08 04:16[facility]-08 04:16[facility]OS[facility] 2023-09-08 04:16:00 [facility] W/PLT COUNT & AUTO DIFFERENTIAL 2023-09-08 04:16:00 [facility] POCT-GLU[facility]SE METER 2023-09-07 21:29:00 Bud [facility] XR KNEE 3 VIEWS LEFT 2023-09-07 19:21:02 [facility] V[facility] DOPPLER LEGS BILATERAL 2023-09-07 12:45:00 [facility] CBC W/PLT COUNT & AUTO DIFFERENTIAL 2023-09-07 03:17:00 [facility]EL 2023-09-07 03:17:00 [facility] 2023-09-07 03:17:00 [facility] 2023-09-07 03:17:00 [facility] CBC W/PLT COUNT & AUTO DIFFERENTIAL 2023-09-07 03:17:00 [facility] POCT-GLUCOSE METER 2023-09-06 21:17:00 Bud [facility] POCT-GLUCOSE METER 2023-09-06 18:37:00 Bud [facility] POCT-GLUCOSE METER 2023-09-06 13:16:00 Bud [facility] POCT-GLUCOSE METER 2023-09-06 08:21:00 Bud [facility] CBC W/PLT COUNT & AUTO DIFFERENTIAL 2023-09-06 04:49:00 Joshua [facility] BASIC METABOLIC PANEL 2023-09-06 04:49:00 Joshua [facility] MAGNESIUM 2023-09-06 04:49:00 Joshua [facility] PHOSPHORUS 2023-09-06 04:49:00 Joshua [facility] CBC W/PLT COUNT & AUTO DIFFERENTIAL 2023-09-06 04:49:00 Joshua [facility] POCT-GLUCOSE METER 2023-09-05 21:24:00 Bud [facility] MR BRAIN WITH & WITHOUT IV CONTRAST 2023-09-05 11:25:07 Sandi Aleman [facility] POCT-GLUCOSE METER 2023-09-05 08:10:00 Bud [facility] CBC W/PLT COUNT & AUTO DIFFERENTIAL 2023-09-05 04:44:00 Joshua [facility] BASIC METABOLIC PANEL 2023-09-05 04:44:00 Joshua [facility] MAGNESIUM 2023-09-05 04:44:00 Joshua [facility] PHOSPHORUS 2023-09-05 04:44:00 Joshua [facility] POCT-GLUCOSE METER 2023-09-05 04:44:00 Lisandra [facility] CBC W/PLT COUNT & AUTO DIFFERENTIAL 2023-09-05 04:44:00 Joshua [facility] POCT-GLUCOSE METER 2023-09-04 21:38:00 [facility]SE METER 2023-09-04 15:42:00 [facility] SARS-COV2/INFLUENZA/RSV RT-PCR 2023-09-04 11:25:00 Uli, [facility] POCT-GLUCOSE METER 2023-09-04 10:53[facility] 2023-09-04 08:04[facility]00 [facility]AL[facility]IN 2023-09-04 06:56:00 Uli [facility] IRON, TIBC, % SAT. (WITHOUT FERRITIN) 2023-09-04 06:56:00 Uli [facility] FERRITIN 2023-09-04 06:56:00 Uli [facility] BLOOD CULTURE 2023-09-04 06:37:00 Randall [facility] MR LUMBAR SPINE WITHOUT IV CONTRAST 2023-09-04 05:47:25 Melvi [facility] MR THORACIC SPINE WITHOUT IV CONTRAST 2023-09-04 04:53:00 Melvi [facility] MR CERVICAL SPINE WITHOUT IV CONTRAST 2023-09-04 04:18:[address] Mel[address] [facility] CT THORACIC SPINE WITHOUT IV CONTRAST 2023-09-04 03:08:00 Randall [facility] CT LUMBAR SPINE WITHOUT IV CONTRAST 2023-09-04 03:08:00 Randall [facility] LACTIC ACID, VENOUS 2023-09-04 01:42:00 [facility] TYPE AND SCREEN, AUTOMATED 2023-09-04 01:42:00 [facility] CBC W/PLT COUNT & AUTO DIFFERENTIAL 2023-09-04 00:51:00 Melvi [facility] COMPREHENSIVE METABOLIC PANEL 2023-09-04 00:51:00 Melvi [facility] MAGNESIUM 2023-09-04 00:51:00 Melvi [facility] PHOSPHORUS 2023-09-04 00:51:00 Melvi [facility] PROTHROMBIN TIME/INR 2023-09-04 00:51:00 Postolowski, [facility] APTT 2023-09-04 00:51:00 Melvi [facility] B-TYPE NATRIURETIC FACTOR (BNP) 2023-09-04 00:51:00 Melvi [facility] URINALYSIS WITHOUT MICROSCOPIC 2023-09-04 00:51:00 Melvi [facility] RAPID DRUG SCREEN, URINE 2023-09-04 00:51:00 Melvi [facility] D-DIMER 2023-09-04 00:51:00 London Loyola [facility] FIBRINOGEN 2023-09-04 00:51:00 Jorge Pereira [facility] CBC W/PLT COUNT & AUTO DIFFERENTIAL 2023-09-04 00:51:00 Melvi [facility] EKG-SCANNED 2023-09-04 00:00:00 Provider, Default Scanning [facility] LACTIC ACID WHOLE BLOOD 2023-08-12 20:31:00 Mj Bryan [facility] COMP. METABOLIC PANEL ([id number]) 2023-08-12 20:29:00 Singer Mj [facility] CBC WITH DIFF 2023-08-12 20:29:00 Singer [facility] CONSENT/REFUSAL FOR DIAGNOSI S AND TREATMENT 2023-08-12 19:43:16 Doctor Unassigned, [place] [facility] TRANSESOPHAGEAL ECHO 2023-06-16 11:05:00 Aydee Go [facility] T SPOT TB 2023-06-15 04:51:00 Lauren Blair [facility] FUNGITELL R B-D-GLUCAN WITH REFLEX TO TITER 2023-06-15 04:51:00 Rossy [facility] ASPERGILLUS GALACTOMANNAN ANTIGEN 2023-06-15 04:51:[address] Rossy [facility] Raul [facility] VANCOMYCIN LEVEL, TROUGH 2023-06-15 04:51:00 Kaylene Mendosa [facility] T-SPOT(R).TB (QUEST) 2023-06-15 04:27:00 Provider, Not In System [facility] T-SPOT(R).TB (Mixamo) 2023-06-15 04:27:00 System, Provider Not In [facility] ECHO W CONTRAST & DOPPLER 2023-06-14 09:22:00 [facility] HEMOGLOBIN A1C 2023-06-14 04:08:00 Marianela Burgess [facility] CBC (HEMOGRAM ONLY) 2023-06-14 04:08:00 [facility] BASIC METABOLIC PANEL 2023-06-14 04:08:00 [facility] CRYPTOCOCCAL ANTIGEN 2023-06-13 17:21:00 Rossy tucker Gonzalez [facility] HC LAB HIV-1 AG W/HIV-1&2 AB 2023-06-13 17:21:00 [facility], LEFT 2023-06-13 17:20:00 Marianela Burgess [facility] LEGIONELLA ANTIGEN, URINE 2023-06-13 17:00:00 [facility] SPUTUM CULTURE + GRAM STAIN 2023-06-13 14:33:00 [facility] MR LUMBAR SPINE WITH & WITHOUT IV CONTRAST 2023-06-13 13:03:47 Burt Nelson [facility] ECG 12-LEAD 2023-06-13 11:47:02 [facility] ECG 12-LEAD 2023-06-13 11:47:02 Unknown, Hl7 Doctor [facility] ECG 12-LEAD 2023-06-13 11:47:02 Unknown, Hl7 Doctor [facility] MRSA SCREEN 2023-06-13 09:19:00 [facility] CBC W/PLT COUNT & AUTO DIFFERENTIAL 2023-06-13 06:03:00 Marianela Burgess [facility] COMPREHENSIVE METABOLIC PANEL 2023-06-13 06:03:00 Marianela Burgess [facility] PROTHROMBIN TIME/INR 2023-06-13 06:03:00 [facility] CREATINE KINASE (CK) 2023-06-13 06:03:00 TorreymkieNazariocory [facility] CBC W/PLT COUNT & AUTO DIFFERENTIAL 2023-06-13 06:03[facility] 2023-06-13 06:02:00 [facility] CBC W/PLT COUNT & AUTO DIFFERENTIAL 2023-06-02 04:41:00 Kimberley [facility] BASIC METABOLIC PANEL 2023-06-02 04:41:00 Kimberley [facility] MAGNESIUM 2023-06-02 04:41:00 Kimberley [facility] PHOSPHORUS 2023-06-02 04:41:00 Kimberley [facility] CBC W/PLT COUNT & AUTO DIFFERENTIAL 2023-06-02 04:41:00 Kimberley [facility] XR SPINE LUMBAR 1 VIEW 2023-06-01 10:31:00 [facility] XR SPINE LUMBAR 1 VIEW 2023-06-01 09:46:00 [facility] LAMINECTOMY, SPINE, LUMBAR 2023-06-01 09:10:00 [facility] PROCEDURE W/ C-ARM 2023-06-01 09:10:00 [facility] LAMINECTOMY, SPINE, LUMBAR 2023-06-01 07:30:00 [facility] PROCEDURE W/ C-ARM 2023-06-01 07:30:00 [facility] SCREEN, URINE 2023-06-01 04:33:00 [facility] BASIC METABOLIC PANEL 2023-05-31 22:55:00 Dallas Gomez [facility] CBC W/PLT COUNT & AUTO DIFFERENTIAL 2023-05-31 22:55:00 [place] Gomez [facility] PT/APTT 2023-05-31 22:55:00 GomezDallas [facility] CBC W/PLT COUNT & AUTO DIFFERENTIAL 2023-05-31 22:55:00 [place] Gomez [facility] CT NECK SOFT TISSUE WITHOUT IV CONTRAST 2023-05-31 09:39:30 TYPE AND SCREEN, AUTOMATED 2023-05-31 09:13:00 BASIC METABOLIC PANEL 2023-05-29 06:43:00 CBC W/PLT COUNT & AUTO DIFFERENTIAL 2023-05-29 06:43:00 CBC W/PLT COUNT & AUTO DIFFERENTIAL 2023-05-29 06:43:00 XR SPINE CERVICAL 2 OR 3 VIEWS 2023-05-28 18:57:00 FL FLUORO NON-SPECIFIC UP TO 1 HOUR 2023-05-28 10:48:[address] [facility] [place] FLUORO NON-SPECIFIC UP TO 1 HOUR 2023-05-28 10:07:[address] [facility] DISCECTOMY, SPINE, CERVICAL, ANTERIOR APPROACH, WITH FUSION 2023-05-28 08:15:00 Jose Adam [facility] INSERTION, HARDWARE, SPINAL 2023-05-28 08:15:[address] [facility] PROCEDURE, ALLOGRAFT, FOR SPINE SURGERY 2023-05-28 08:15:[address] [facility] AUTOGRAFT FOR SPINE SURGERY 2023-05-28 08:15:00 Jose Adam C [facility] PROCEDURE W/ C-ARM 2023-05-28 08:15:[address] [facility] NEUROPHYSIOLOGIC MONITORING, INTRAOPERATIVE 2023-05-28 08:15:00 Jose Adam [facility] PROCEDURE, USING OPERATING MICROSCOPE 2023-05-28 08:15:00 Adam Garcia [facility] HCG, QUANTITATIVE, 2023-05-28 07:42:00 Yue Bui [facility] TYPE AND SCREEN, AUTOMATED 2023-05-28 07:42:00 Quin Monet [facility] XR CHEST 1 VIEW PORTABLE / BEDSIDE 2023-04-01 15:32:16 Thomas Lozoya [facility] B-TYPE NATRIURETIC FACTOR (BNP) 2023-04-01 13:32:00 Thomas Lozoya [facility] ECHO W CONTRAST & DOPPLER 2023-03-31 20:18:37 Jasen [facility] MR CERVICAL SPINE WITHOUT IV CONTRAST 2023-03-31 09:25:00 Edward Lewis [facility] CBC (HEMOGRAM ONLY) 2023-03-31 03:45[facility]00 [facility] 2023-03-31 [facility] ARTERIAL DOPPLER LEGS BILATERAL 2023-03-30 15:45:00 [facility] ARTERIAL (ALEISHA'S W/ DOPPLER) ONLY 2023-03-30 15:44:00 [facility] 2023-03-30 13:06:22 [facility] 2023-03-30 13:06:22 Unknown, Hl7 [facility] MR THORACIC SPINE WITHOUT IV CONTRAST 2023-03-30 12:29:58 Eric [facility] MR LUMBAR SPINE WITHOUT IV CONTRAST 2023-03-30 11:58:00 rEic [facility] EEG AWAKE AND DROWSY 2023-03-30 09:57:53 Berry [facility] VALPROIC ACID LEVEL, TOTAL 2023-03-30 09:06:00 Liudmila Smart [facility] URINALYSIS W/ REFLEX URINE CULTURE 2023-03-30 03:54:00 Eric [facility] CBC (HEMOGRAM ONLY) 2023-03-30 03:52:00 Mariah Aldridge [facility] COMPREHENSIVE METABOLIC PANEL 2023-03-30 03:52:00 JevonMariah fitzgerald [facility] HEMOGLOBIN A1C 2023-03-30 03:52:00 Mariah Aldridge [facility] PT/APTT 2023-03-30 03:52:00 Thomas Lozoya [facility] EKG-SCANNED 2023-03-29 00:00:00 Provider, Default Scanning [facility] CT HEAD WO CONTRAST 2022-12-11 18:36:49 Alfonso Alvarado [facility] URINE DRUG (IMMUNOASSAY) - COMPREHENSIVE DRUG SCREEN 2022-12-11 17:13:00 Alfonso Alvarado [facility] URINALYSIS 2022-12-11 17:13:00 Alfonso Alvarado [facility] CT CHEST PULMONARY ANGIOGRAM 2022-12-11 16:26:39 Alfonso Alvarado [facility] MAGNESIUM 2022-12-11 14:57:00 Alfonso Alvarado [facility] COMP. METABOLIC PANEL ([id number]) 2022-12-11 14:57:00 Alfonso Alvarado [facility] D-DIMER 2022-12-11 14:15:00 Alfonso Alvarado [facility] XR CHEST 1 VW 2022-12-11 14:10:26 Alfonso Alvarado [facility] TROPONIN I 2022-12-11 14:02:00 Alfonso Alvarado [facility] CBC WITH DIFF 2022-12-11 14:02:00 Alfonso Alvarado [facility] N-TERMINAL PRO-BNP 2022-12-11 14:02:00 Alfonso Alvarado [facility] HB ECG ROUTINE & RHYTHM STRIP 2022-12-11 14:01:08 Alfonso Alvarado [facility] CONSENT/REFUSAL FOR DIAGNOSI S AND TREATMENT 2022-12-11 13:52:01 Doctor Unassigned, [place] [facility] ECG 12-LEAD 2022-08-03 05:03:32 Unknown, Hl7 Doctor [facility] ECG 12-LEAD 2022-08-03 05:03:32 Unknown, Hl7 [facility] LIPID PANEL 2022-08-02 21:14:00 [facility] T4 IF INDICATED 2022-08-02 21:14:00 [facility] VITAMIN B12 2022-08-02 21:14:00 [facility] HEMOGLOBIN A1C 2022-08-02 21:14:00 [facility] COMPREHENSIVE METABOLIC PANEL 2022-08-02 21:14:00 [facility] CBC W/PLT COUNT & AUTO DIFFERENTIAL 2022-08-02 21:14:00 [facility] RPR 2022-08-02 21:14:00 [facility] HC LAB HIV-1 AG W/HIV-1&2 AB 2022-08-02 21:14:00 [facility] C-REACTIVE PROTEIN 2022-08-02 21:14:00 [facility] CBC W/PLT COUNT & AUTO DIFFERENTIAL 2022-08-02 21:14:00 [facility] EKG-SCANNED 2022-08-02 00:00:00 Provider, Default Scanning [facility] CT HEAD WO CONTRAST 2022-08-01 23:52:15 Dami Lowry [facility] GALV ONLY - INFLUENZA A B RS V PCR 2022-08-01 18:28:00 Letitia Chambers [facility] TRANSTHORACIC ECHO (TTE) COMPLETE W/ CONTRAST 2022-08-01 14:42:00 Kylee Montez [facility] MAGNESIUM 2022-08-01 10:42:00 Dami Lowry [facility] BASIC METABOLIC PANEL (NA, K , CL, CO2, GLUCOSE, BUN, CREATININE, CA) 2022-08-01 10:42:00 Dami Lowry [facility] CBC WITH DIFF 2022-08-01 10:42:00 Dami Lowry [facility] N-TERMINAL PRO-BNP 2022-08-01 10:42:00 Kylee Montez [facility] POCT GLUCOSE (AUTOMATED) 2022-08-01 06:56:00 Dami Lowry [facility] CRITICAL CARE 2022-07-31 22:31:36 Alcon [facility] URINALYSIS 2022-07-31 20:52:[address] [facility] URINE DRUG (IMMUNOASSAY) - COMPREHENSIVE DRUG SCREEN W/O REFLEX 2022-07-31 20:52:[address]con [facility] XR CHEST 1 VW 2022-07-31 18:45:17 [facility]22-07-31 17:58:00 Alcon [facility] TROPONIN I 2022-07-31 17:58:00 Alcon [facility] COMP. METABOLIC PANEL ([id number]) 2022-07-31 17:58:00 [facility] 2022-07-31 17:58:00 Alcon [facility] PROTHROMBIN TIME / INR 2022-07-31 17:58:00 Alcon [facility] ACTIVATED PARTIAL THRMPLAS DAVID 2022-07-31 17:58:00 Alcon [facility] N-TERMINAL PRO-BNP 2022-07-31 17:58:00 Alcon [facility] HB ECG ROUTINE & RHYTHM STRIP 2022-07-31 17:46:28 [facility] NOTICE OF PRIVACY PRACTICES 2022-07-31 17:35:38 Doctor Unassigned, [place] [facility] CONSENT/REFUSAL FOR DIAGNOSI S AND TREATMENT 2022-07-31 17:35:13 Doctor Unassigned, [place] [facility] PHOSPHORUS 2022-05-08 05:51:00 Shefali Azeem [facility] MAGNESIUM 2022-05-08 05:51:00 Shefali [facility] BASIC METABOLIC PANEL (NA, K , CL, CO2, GLUCOSE, BUN, CREATININE, CA) 2022-05-08 05:51:00 D'Tirado, [facility] CBC WITH DIFF 2022-05-08 05:51:00 Shefali Azeem [facility] BASIC METABOLIC PANEL (NA, K , CL, CO2, GLUCOSE, BUN, CREATININE, CA) 2022-05-07 07:09:00 John Cintron [facility] CBC WITH DIFF 2022-05-07 07:09:00 John Cintron [facility] POCT GLUCOSE (AUTOMATED) 2022-05-07 01:16:00 Brandyn Ibrahim [facility] HB ABO GROUPING 2022-05-06 05:07:00 Ismael Dunn [facility] BASIC METABOLIC PANEL (NA, K , CL, CO2, GLUCOSE, BUN, CREATININE, CA) 2022-05-06 05:04:00 Shefali [facility] CBC WITH DIFF 2022-05-06 05:04:00 Shefali [facility] KEPPRA (LEVETIRACETAM) 2022-05-06 05:04:00 Shefali [facility] MR LUMBAR SPINE WO CONTRAST 2022-05-06 02:54:37 Ender Monet [facility] ELECTROENCEPHALOGRAM 2022-05-06 00:00:00 John Cintron [facility] BASIC METABOLIC PANEL (NA, K , CL, CO2, GLUCOSE, BUN, CREATININE, CA) 2022-05-05 07:57:00 Ismael Dunn [facility] CBC WITH DIFF 2022-05-05 07:57:00 Ismael Dunn [facility] PROTHROMBIN TIME / INR 2022-05-05 07:57:00 Ismael Dunn [facility] ACTIVATED PARTIAL THRMPLAS DAVID 2022-05-05 07:57:00 Ismael Dunn [facility] FIBRINOGEN 2022-05-05 07:57:00 Ismael Dunn [facility] EMERGENCY SERVICES AGREEMENT S AND AUTHORIZATIONS 2022-05-04 05:01:00 Doctor Unassigned, [place] [facility] VITAMIN D, 25-OH 2022-04-15 16:53:00 Sen Toledo [facility] MR THORACIC SPINE WO CONTRAST 2022-04-15 11:56:19 Harshil [facility] MR CERVICAL SPINE WO CONTRAST 2022-04-15 11:20:00 Harshil [facility] BASIC METABOLIC PANEL (NA, K , CL, CO2, GLUCOSE, BUN, CREATININE, CA) 2022-04-15 10:36:00 Charmaine Morataya [facility] TEST, URINE 2022-04-15 04:39:00 Harshil [facility] URINE DRUG (IMMUNOASSAY) - COMPREHENSIVE DRUG SCREEN 2022-04-15 04:39:00 Harshil [facility] URINALYSIS 2022-04-15 04:39:00 Harshil [facility] TRANSTHORACIC ECHO (TTE) COMPLETE W/ CONTRAST 2022-04-14 16:37:03 Harshil [facility] KEPPRA (LEVETIRACETAM) 2022-04-14 15:30:00 Harshil [facility] MAGNESIUM 2022-04-14 10:03:00 Harshil [facility] BASIC METABOLIC PANEL (NA, K , CL, CO2, GLUCOSE, BUN, CREATININE, CA) 2022-04-14 10:03:00 Harshil [facility] MR LUMBAR SPINE WO CONTRAST 2022-04-14 02:48:12 Harshil [facility] MR STROKE BRAIN WO CONTRAST 2022-04-14 02:29:00 Harshil [facility] CT STROKE ANGIOGRAM HEAD 2022-04-13 18:40:00 Sapna Vargas [facility] CT STROKE ANGIOGRAM NECK 2022-04-13 18:40:00 Sapna Vargas [facility] CT STROKE HEAD WO CONTRAST 2022-04-13 18:36:00 Sapna Vargas [facility] TROPONIN I 2022-04-13 18:17:00 Sapna Vargas [facility] THYROID STIMULATING HORMONE 2022-04-13 18:17:00 Harshil Soumya [facility] BASIC METABOLIC PANEL (NA, K , CL, CO2, GLUCOSE, BUN, CREATININE, CA) 2022-04-13 18:17:00 Sapna Vargas [facility] LIPID PANEL ([id number])(TOTAL CHOLESTEROL, TRIGLYCERIDES, HDL) 2022-04-13 18:17:00 Harshil [facility] CBC WITHOUT DIFF 2022-04-13 18:17:00 Sapna Vargas [facility] GLYCOSYLATED HEMOGLOBIN (A1C) 2022-04-13 18:17:00 Harshil [facility] PROTHROMBIN TIME / INR 2022-04-13 18:17:00 Sapna Vargas [facility] ACTIVATED PARTIAL THRMPLAS DAVID 2022-04-13 18:17:00 Sapna Vargas [facility] COVID-19 (ID NOW RAPID TESTING) 2022-04-13 18:17:00 Sapna Vargas [facility] LAB ONLY COVID INTERPRETATION 2022-04-13 18:17:00 Sapna Vargas [facility] HB ECG ROUTINE & RHYTHM STRIP 2022-04-13 18:15:49 Sapna Vargas [facility] CONSENT/REFUSAL FOR DIAGNOSI S AND TREATMENT 2022-04-13 18:05:14 Doctor Unassigned, [place] [facility] HOSPITAL ADMISSION 2022-04-13 05:01:00 Doctor Unassigned, [place] [facility] SARS-COV-2 COVID-19 VACCINE 12 YRS+,0.3ML,IM (PFIZER - [facility]) 2022-02-19 15:21:12 Doctor Unassigned, [place] [facility] URINE DRUG (IMMUNOASSAY) - COMPREHENSIVE DRUG SCREEN W/O REFLEX 2021-11-23 21:21:00 Williams Virk [facility] CT HEAD WO CONTRAST 2021-11-23 20:58:00 Williams Virk [facility] POCT TEST 2021-11-23 20:46:00 Williams Virk [facility] URINALYSIS 2021-11-23 20:43:00 Williams Virk [facility] LIPASE 2021-11-23 20:27:00 Williams Virk [facility] TROPONIN I 2021-11-23 20:27:00 Williams Virk [facility] COMP. METABOLIC PANEL ([id number]) 2021-11-23 20:27:00 Williams Virk [facility] CBC WITH DIFF 2021-11-23 20:27:00 Williams Virk [facility] POCT GLUCOSE (AUTOMATED) 2021-11-23 20:15:00 Doctor Unassigned, [place] [facility] SARS-COV-2 COVID-19 VACCINE,0.3ML,IM (PFIZER) 2021-05-24 14:23:12 Doctor Unassigned, [place] [facility] SARS-COV-2 COVID-19 VACCINE,0.3ML,IM (PFIZER) 2021-05-03 14:59:29 Doctor Unassigned, [place] [facility] EMERGENCY SERVICES AGREEMENT S AND AUTHORIZATIONS 2021-04-16 05:01:00 Doctor Unassigned, [place] [facility] URINALYSIS 2021-03-17 03:09:00 [facility] XR CHEST 1 VW 2021-03-17 01:45:07 Palmer [facility] TROPONIN I 2021-03-17 01:35:00 Fabrice Chakraborty [facility] COMP. METABOLIC PANEL ([id number]) 2021-03-17 01:35:00 Fabrice Chakraborty [facility] CBC WITH DIFF 2021-03-17 01:35:00 Palmer [facility] N-TERMINAL PRO-BNP 2021-03-17 01:35:00 Palmer [facility] COVID-19 (ID NOW RAPID TESTING) 2021-03-17 00:58:00 Mj Bryan [facility] CONSENT/REFUSAL FOR DIAGNOSI S AND TREATMENT 2021-03-17 00:32:59 Doctor Unassigned, [place] [facility] COVID-19 (ID NOW RAPID TESTING) 2021-02-19 17:04:00 Estefania Monroy [facility] CT ABDOMEN PELVIS W CONTRAST 2021-02-19 16:41:18 Estefania Monroy [facility] LIPASE 2021-02-19 15:58:00 Estefania Monroy [facility] COMP. METABOLIC PANEL ([id number]) 2021-02-19 15:58:00 Estefania Monroy [facility] CBC WITH DIFF 2021-02-19 15:58:00 Estefania Monroy [facility] URINALYSIS 2021-02-19 15:58:00 Estefania Monroy [facility] NOTICE OF PRIVACY PRACTICES 2021-02-19 15:30:46 Doctor Unassigned, [place] [facility] CONSENT/REFUSAL FOR DIAGNOSI S AND TREATMENT 2021-02-19 15:30:30 Doctor Unassigned, [place] [facility] Plan of Care Planned Activity Planned Date Details Comments Source Future Scheduled Test 2025-08-02 00:00:00 Lipid panel (procedure) [code = 84539673] [facility] Future Scheduled Test 2025-08-02 00:00:00 Lipid panel (procedure) [code = [id number]] [facility] Future Scheduled Test 2025-08-02 00:00:00 Lipid panel (procedure) [code = [id number]] [facility] Future Scheduled Test 2025-08-02 00:00:00 Lipid panel (procedure) [code = 66376684] [facility] Future Scheduled Test 2025-08-02 00:00:00 Lipid panel (procedure) [code = [id number]] [facility] Future Scheduled Test 2025-08-02 00:00:00 Lipid panel (procedure) [code = 47353490] [facility] Future Scheduled Test 2025-08-02 00:00:00 Lipid panel (procedure) [code = 59183532] [facility] Future Scheduled Test 2025-08-02 00:00:00 Lipid panel (procedure) [code = [id number]] [facility] Future Scheduled Test 2025-08-02 00:00:00 Lipid panel (procedure) [code = [id number]] [facility] Future Scheduled Test 2025-08-02 00:00:00 Lipid panel (procedure) [code = [id number]] [facility] Future Scheduled Test 2025-08-02 00:00:00 Lipid panel (procedure) [code = [id number]] [facility] Future Scheduled Test 2025-08-02 00:00:00 Lipid panel (procedure) [code = 18036665] [facility] Future Scheduled Test 2025-08-02 00:00:00 Lipid panel (procedure) [code = 63070278] [facility] Future Scheduled Test 2025-08-02 00:00:00 Lipid panel (procedure) [code = 53723455] [facility] Future Scheduled Test 2025-08-02 00:00:00 Lipid panel (procedure) [code = 73461359] [facility] Future Scheduled Test 2025-08-02 00:00:00 Lipid panel (procedure) [code = 54436041] [facility] Future Scheduled Test 2025-08-02 00:00:00 Lipid panel (procedure) [code = 99930284] [facility] Future Scheduled Test 2025-08-02 00:00:00 Lipid panel (procedure) [code = 73197116] [facility] Future Scheduled Test 2025-08-02 00:00:00 Lipid panel (procedure) [code = 55866754] [facility] Future Scheduled Test 2025-08-02 00:00:00 Lipid panel (procedure) [code = 64447806] [facility] Future Scheduled Test 2025-08-02 00:00:00 Lipid panel (procedure) [code = 38311399] [facility] Future Scheduled Test 2025-08-02 00:00:00 Lipid panel (procedure) [code = [id number]] [facility] Future Scheduled Test 2025-08-02 00:00:00 Lipid panel (procedure) [code = 42477577] [facility] Future Scheduled Test 2025-08-02 00:00:00 Lipid panel (procedure) [code = [id number]] [facility] Future Scheduled Test 2025-08-02 00:00:00 Lipid panel (procedure) [code = [id number]] [facility] Future Scheduled Test 2025-08-02 00:00:00 Lipid panel (procedure) [code = [id number]] [facility] Future Scheduled Test 2025-08-02 00:00:00 Lipid panel (procedure) [code = 51590242] [facility] Future Scheduled Test 2025-08-02 00:00:00 Lipid panel (procedure) [code = [id number]] [facility] Future Scheduled Test 2025-08-02 00:00:00 Lipid panel (procedure) [code = 63452435] [facility] Future Scheduled Test 2025-08-02 00:00:00 Lipid panel (procedure) [code = 68945873] [facility] Future Scheduled Test 2025-08-02 00:00:00 Lipid panel (procedure) [code = 63744126] [facility] Future Scheduled Test 2025-08-02 00:00:00 Lipid panel (procedure) [code = 06341782] [facility] Future Scheduled Test 2025-08-02 00:00:00 Lipid panel (procedure) [code = 06484747] [facility] Future Scheduled Test 2025-08-02 00:00:00 Lipid panel (procedure) [code = 78392318] [facility] Future Scheduled Test 2025-08-02 00:00:00 Lipid panel (procedure) [code = 08752996] [facility] Future Scheduled Test 2025-08-02 00:00:00 Lipid panel (procedure) [code = [id number]] [facility] Future Scheduled Test 2025-08-02 00:00:00 Lipid panel (procedure) [code = 54535747] [facility] Future Scheduled Test 2025-08-02 00:00:00 Lipid panel (procedure) [code = 60886857] [facility] Future Scheduled Test 2025-08-02 00:00:00 Lipid panel (procedure) [code = [id number]] [facility] Future Scheduled Test 2025-08-02 00:00:00 Lipid panel (procedure) [code = 67810243] [facility] Future Scheduled Test 2025-08-02 00:00:00 Lipid panel (procedure) [code = 81873783] [facility] Future Scheduled Test 2025-08-02 00:00:00 Lipid panel (procedure) [code = 10725818] [facility] Future Scheduled Test 2025-08-02 00:00:00 Lipid panel (procedure) [code = 59710054] [facility] Future Scheduled Test 2025-08-02 00:00:00 Lipid panel (procedure) [code = 01088747] [facility] Future Scheduled Test 2025-08-02 00:00:00 Lipid panel (procedure) [code = 39744112] [facility] Future Scheduled Test 2025-08-02 00:00:00 Lipid panel (procedure) [code = 15939435] [facility] Future Scheduled Test 2025-08-02 00:00:00 Lipid panel (procedure) [code = 88849298] [facility] Future Scheduled Test 2025-08-02 00:00:00 Lipid panel (procedure) [code = 57682731] [facility] Future Scheduled Test 2025-08-02 00:00:00 Lipid panel (procedure) [code = 52139685] [facility] Future Scheduled Test 2025-08-02 00:00:00 Lipid panel (procedure) [code = 42105726] [facility] Future Scheduled Test 2025-08-02 00:00:00 Lipid panel (procedure) [code = 95564032] [facility] Future Scheduled Test 2025-08-02 00:00:00 Lipid panel (procedure) [code = 32712238] [facility] Future Scheduled Test 2025-08-02 00:00:00 Lipid panel (procedure) [code = 57950093] [facility] Future Scheduled Test 2025-08-02 00:00:00 Lipid panel (procedure) [code = 53429787] [facility] Future Scheduled Test 2025-08-02 00:00:00 Lipid panel (procedure) [code = 62011009] [facility] Future Scheduled Test 2025-08-02 00:00:00 Lipid panel (procedure) [code = 69810666] [facility] Future Scheduled Test 2025-08-02 00:00:00 Lipid panel (procedure) [code = 63012993] [facility] Future Scheduled Test 2025-08-02 00:00:00 Lipid panel (procedure) [code = 29097655] [facility] Future Scheduled Test 2025-08-02 00:00:00 Lipid panel (procedure) [code = 10693543] [facility] Future Scheduled Test 2025-08-02 00:00:00 Lipid panel (procedure) [code = 22564125] [facility] Future Scheduled Test 2025-08-02 00:00:00 Lipid panel (procedure) [code = 36602147] [facility] Future Scheduled Test 2025-08-02 00:00:00 Lipid panel (procedure) [code = 24413582] [facility] Future Scheduled Test 2025-08-02 00:00:00 Lipid panel (procedure) [code = [id number]] [facility] Future Scheduled Test 2025-08-02 00:00:00 Lipid panel (procedure) [code = [id number]] [facility] Future Scheduled Test 2025-08-02 00:00:00 Lipid panel (procedure) [code = [id number]] [facility] Future Scheduled Test 2025-08-02 00:00:00 Lipid panel (procedure) [code = [id number]] [facility] Future Scheduled Test 2025-08-02 00:00:00 Lipid panel (procedure) [code = [id number]] [facility] Future Scheduled Test 2025-08-02 00:00:00 Lipid panel (procedure) [code = [id number]] [facility] Future Scheduled Test 2025-08-02 00:00:00 Lipid panel (procedure) [code = [id number]] [facility] Future Scheduled Test 2025-08-02 00:00:00 Lipid panel (procedure) [code = [id number]] [facility] Future Scheduled Test 2024-05-28 00:00:00 Tobacco Cessation Counseling and Screening (12+) [code = Tobacco Cessation Counseling and Screening (12+)] [facility] Future Scheduled Test 2024-05-28 00:00:00 Tobacco Cessation Counseling and Screening (12+) [code = Tobacco Cessation Counseling and Screening (12+)] [facility] Scheduled Test 2024-05-28 00:00:00 Tobacco Cessation Counseling and Screening (12+) [code = Tobacco Cessation Counseling and Screening (12+)] [facility] Scheduled Test 2024-05-28 00:00:00 Tobacco Cessation Counseling and Screening (12+) [code = Tobacco Cessation Counseling and Screening (12+)] [facility] Scheduled Test 2024-05-28 00:00:00 Tobacco Cessation Counseling and Screening (12+) [code = Tobacco Cessation Counseling and Screening (12+)] [facility] Scheduled Test 2024-05-28 00:00:00 Tobacco Cessation Counseling and Screening (12+) [code = Tobacco Cessation Counseling and Screening (12+)] [facility] Scheduled Test 2024-05-28 00:00:00 Tobacco Cessation Counseling and Screening (12+) [code = Tobacco Cessation Counseling and Screening (12+)] [facility] Scheduled Test 2024-05-28 00:00:00 Tobacco Cessation Counseling and Screening (12+) [code = Tobacco Cessation Counseling and Screening (12+)] [facility] Scheduled Test 2024-05-28 00:00:00 Tobacco Cessation Counseling and Screening (12+) [code = Tobacco Cessation Counseling and Screening (12+)] [facility] Scheduled Test 2024-05-28 00:00:00 Tobacco Cessation Counseling and Screening (12+) [code = Tobacco Cessation Counseling and Screening (12+)] [facility] Scheduled Test 2024-05-28 00:00:00 Tobacco Cessation Counseling and Screening (12+) [code = Tobacco Cessation Counseling and Screening (12+)] [facility] Scheduled Test 2024-05-28 00:00:00 Tobacco Cessation Counseling and Screening (12+) [code = Tobacco Cessation Counseling and Screening (12+)] [facility] Scheduled Test 2024-05-28 00:00:00 Tobacco Cessation Counseling and Screening (12+) [code = Tobacco Cessation Counseling and Screening (12+)] [facility] Scheduled Test 2024-05-28 00:00:00 Tobacco Cessation Counseling and Screening (12+) [code = Tobacco Cessation Counseling and Screening (12+)] [facility] Scheduled Test 2024-05-28 00:00:00 Tobacco Cessation Counseling and Screening (12+) [code = Tobacco Cessation Counseling and Screening (12+)] [facility] Scheduled Test 2024-05-28 00:00:00 Tobacco Cessation Counseling and Screening (12+) [code = Tobacco Cessation Counseling and Screening (12+)] [facility] Scheduled Test 2024-05-28 00:00:00 Tobacco Cessation Counseling and Screening (12+) [code = Tobacco Cessation Counseling and Screening (12+)] [facility] Scheduled Test 2024-05-28 00:00:00 Tobacco Cessation Counseling and Screening (12+) [code = Tobacco Cessation Counseling and Screening (12+)] [facility] Scheduled Test 2024-05-28 00:00:00 Tobacco Cessation Counseling and Screening (12+) [code = Tobacco Cessation Counseling and Screening (12+)] [facility] Scheduled Test 2024-05-28 00:00:00 Tobacco Cessation Counseling and Screening (12+) [code = Tobacco Cessation Counseling and Screening (12+)] [facility] Scheduled Test 2024-05-28 00:00:00 Tobacco Cessation Counseling and Screening (12+) [code = Tobacco Cessation Counseling and Screening (12+)] [facility] Scheduled Test 2024-05-28 00:00:00 Tobacco Cessation Counseling and Screening (12+) [code = Tobacco Cessation Counseling and Screening (12+)] [facility] Scheduled Test 2024-05-28 00:00:00 Tobacco Cessation Counseling and Screening (12+) [code = Tobacco Cessation Counseling and Screening (12+)] [facility] Scheduled Test 2024-05-28 00:00:00 Tobacco Cessation Counseling and Screening (12+) [code = Tobacco Cessation Counseling and Screening (12+)] [facility] Scheduled Test 2024-05-28 00:00:00 Tobacco Cessation Counseling and Screening (12+) [code = Tobacco Cessation Counseling and Screening (12+)] [facility] Future Scheduled Test 2024-05-28 00:00:00 Tobacco Cessation Counseling and Screening (12+) [code = Tobacco Cessation Counseling and Screening (12+)] [facility] Scheduled Test 2024-05-28 00:00:00 Tobacco Cessation Counseling and Screening (12+) [code = Tobacco Cessation Counseling and Screening (12+)] [facility] Scheduled Test 2024-05-28 00:00:00 Tobacco Cessation Counseling and Screening (12+) [code = Tobacco Cessation Counseling and Screening (12+)] [facility] Scheduled Test 2024-05-28 00:00:00 Tobacco Cessation Counseling and Screening (12+) [code = Tobacco Cessation Counseling and Screening (12+)] [facility] Scheduled Test 2024-05-28 00:00:00 Tobacco Cessation Counseling and Screening (12+) [code = Tobacco Cessation Counseling and Screening (12+)] [facility] Scheduled Test 2024-05-28 00:00:00 Tobacco Cessation Counseling and Screening (12+) [code = Tobacco Cessation Counseling and Screening (12+)] [facility] Scheduled Test 2024-05-28 00:00:00 Tobacco Cessation Counseling and Screening (12+) [code = Tobacco Cessation Counseling and Screening (12+)] [facility] Scheduled Test 2024-05-28 00:00:00 Tobacco Cessation Counseling and Screening (12+) [code = Tobacco Cessation Counseling and Screening (12+)] [facility] Scheduled Test 2024-05-28 00:00:00 Tobacco Cessation Counseling and Screening (12+) [code = Tobacco Cessation Counseling and Screening (12+)] [facility] Scheduled Test 2024-05-28 00:00:00 Tobacco Cessation Counseling and Screening (12+) [code = Tobacco Cessation Counseling and Screening (12+)] [facility] Scheduled Test 2024-05-28 00:00:00 Tobacco Cessation Counseling and Screening (12+) [code = Tobacco Cessation Counseling and Screening (12+)] [facility] Scheduled Test 2024-05-28 00:00:00 Tobacco Cessation Counseling and Screening (12+) [code = Tobacco Cessation Counseling and Screening (12+)] [facility] Future Scheduled Test 2024-05-28 00:00:00 Tobacco Cessation Counseling and Screening (12+) [code = Tobacco Cessation Counseling and Screening (12+)] [facility] Scheduled Test 2024-05-28 00:00:00 Tobacco Cessation Counseling and Screening (12+) [code = Tobacco Cessation Counseling and Screening (12+)] [facility] Scheduled Test 2024-05-28 00:00:00 Tobacco Cessation Counseling and Screening (12+) [code = Tobacco Cessation Counseling and Screening (12+)] [facility] Scheduled Test 2024-05-28 00:00:00 Tobacco Cessation Counseling and Screening (12+) [code = Tobacco Cessation Counseling and Screening (12+)] [facility] Scheduled Test 2024-05-28 00:00:00 Tobacco Cessation Counseling and Screening (12+) [code = Tobacco Cessation Counseling and Screening (12+)] [facility] Scheduled Test 2024-05-28 00:00:00 Tobacco Cessation Counseling and Screening (12+) [code = Tobacco Cessation Counseling and Screening (12+)] [facility] Scheduled Test 2024-05-28 00:00:00 Tobacco Cessation Counseling and Screening (12+) [code = Tobacco Cessation Counseling and Screening (12+)] [facility] Scheduled Test 2024-05-28 00:00:00 Tobacco Cessation Counseling and Screening (12+) [code = Tobacco Cessation Counseling and Screening (12+)] [facility] Future Scheduled Test 2024-05-26 00:00:00 Tobacco Cessation Counseling and Screening (12+) [code = Tobacco Cessation Counseling and Screening (12+)] [facility] Future Scheduled Test 2024-05-26 00:00:00 Tobacco Cessation Counseling and Screening (12+) [code = Tobacco Cessation Counseling and Screening (12+)] [facility] Scheduled Test 2024-03-20 00:00:00 Influenza Vaccine (Season Ended) [code = Influenza Vaccine (Season Ended)] [facility] Scheduled Test 2024-03-20 00:00:00 Influenza Vaccine (Season Ended) [code = Influenza Vaccine (Season Ended)] [facility] Scheduled Test 2024-03-20 00:00:00 Influenza Vaccine (Season Ended) [code = Influenza Vaccine (Season Ended)] [facility] Future Scheduled Test 2024-03-20 00:00:00 Influenza Vaccine (Season Ended) [code = Influenza Vaccine (Season Ended)] [facility] Future Scheduled Test 2024-03-20 00:00:00 Influenza Vaccine (Season Ended) [code = Influenza Vaccine (Season Ended)] [facility] Future Scheduled Test 2024-03-20 00:00:00 Influenza Vaccine (Season Ended) [code = Influenza Vaccine (Season Ended)] [facility] Future Scheduled Test 2024-03-20 00:00:00 Influenza Vaccine (Season Ended) [code = Influenza Vaccine (Season Ended)] [facility] Future Scheduled Test 2024-03-20 00:00:00 Influenza Vaccine (Season Ended) [code = Influenza Vaccine (Season Ended)] [facility] Future Scheduled Test 2024-03-20 00:00:00 Influenza Vaccine (Season Ended) [code = Influenza Vaccine (Season Ended)] [facility] Future Scheduled Test 2024-03-20 00:00:00 Influenza Vaccine (Season Ended) [code = Influenza Vaccine (Season Ended)] [facility] Future Scheduled Test 2023-07-20 00:00:00 DEPRESSION SCREENING (12+) [code = DEPRESSION SCREENING (12+)] [facility] Future Scheduled Test 2023-07-20 00:00:00 DEPRESSION SCREENING (12+) [code = DEPRESSION SCREENING (12+)] [facility] Future Scheduled Test 2023-07-20 00:00:00 DEPRESSION SCREENING (12+) [code = DEPRESSION SCREENING (12+)] [facility] Future Scheduled Test 2023-07-20 00:00:00 DEPRESSION SCREENING (12+) [code = DEPRESSION SCREENING (12+)] [facility] Future Scheduled Test 2023-07-20 00:00:00 DEPRESSION SCREENING (12+) [code = DEPRESSION SCREENING (12+)] [facility] Future Scheduled Test 2023-07-20 00:00:00 DEPRESSION SCREENING (12+) [code = DEPRESSION SCREENING (12+)] [facility] Future Scheduled Test 2023-07-20 00:00:00 DEPRESSION SCREENING (12+) [code = DEPRESSION SCREENING (12+)] [facility] Future Scheduled Test 2023-07-20 00:00:00 DEPRESSION SCREENING (12+) [code = DEPRESSION SCREENING (12+)] [facility] Future Scheduled Test 2023-07-20 00:00:00 DEPRESSION SCREENING (12+) [code = DEPRESSION SCREENING (12+)] [facility] Future Scheduled Test 2023-07-20 00:00:00 DEPRESSION SCREENING (12+) [code = DEPRESSION SCREENING (12+)] [facility] Future Scheduled Test 2023-07-20 00:00:00 DEPRESSION SCREENING (12+) [code = DEPRESSION SCREENING (12+)] [facility] Future Scheduled Test 2023-07-20 00:00:00 DEPRESSION SCREENING (12+) [code = DEPRESSION SCREENING (12+)] [facility] Future Scheduled Test 2023-07-20 00:00:00 DEPRESSION SCREENING (12+) [code = DEPRESSION SCREENING (12+)] [facility] Future Scheduled Test 2023-07-20 00:00:00 DEPRESSION SCREENING (12+) [code = DEPRESSION SCREENING (12+)] [facility] Future Scheduled Test 2023-07-20 00:00:00 DEPRESSION SCREENING (12+) [code = DEPRESSION SCREENING (12+)] [facility] Future Scheduled Test 2023-07-20 00:00:00 DEPRESSION SCREENING (12+) [code = DEPRESSION SCREENING (12+)] [facility] Future Scheduled Test 2023-07-20 00:00:00 DEPRESSION SCREENING (12+) [code = DEPRESSION SCREENING (12+)] [facility] Future Scheduled Test 2023-07-20 00:00:00 DEPRESSION SCREENING (12+) [code = DEPRESSION SCREENING (12+)] [facility] Future Scheduled Test 2023-07-20 00:00:00 DEPRESSION SCREENING (12+) [code = DEPRESSION SCREENING (12+)] [facility] Future Scheduled Test 2023-07-20 00:00:00 DEPRESSION SCREENING (12+) [code = DEPRESSION SCREENING (12+)] [facility] Future Scheduled Test 2023-07-20 00:00:00 DEPRESSION SCREENING (12+) [code = DEPRESSION SCREENING (12+)] [facility] Future Scheduled Test 2023-07-20 00:00:00 DEPRESSION SCREENING (12+) [code = DEPRESSION SCREENING (12+)] [facility] Future Scheduled Test 2023-07-20 00:00:00 DEPRESSION SCREENING (12+) [code = DEPRESSION SCREENING (12+)] [facility] Future Scheduled Test 2023-07-20 00:00:00 DEPRESSION SCREENING (12+) [code = DEPRESSION SCREENING (12+)] [facility] Future Scheduled Test 2023-07-20 00:00:00 DEPRESSION SCREENING (12+) [code = DEPRESSION SCREENING (12+)] [facility] Future Scheduled Test 2023-07-20 00:00:00 DEPRESSION SCREENING (12+) [code = DEPRESSION SCREENING (12+)] [facility] Future Scheduled Test 2023-07-20 00:00:00 DEPRESSION SCREENING (12+) [code = DEPRESSION SCREENING (12+)] [facility] Future Scheduled Test 2023-07-20 00:00:00 DEPRESSION SCREENING (12+) [code = DEPRESSION SCREENING (12+)] [facility] Future Scheduled Test 2023-07-20 00:00:00 DEPRESSION SCREENING (12+) [code = DEPRESSION SCREENING (12+)] [facility] Future Scheduled Test 2023-07-20 00:00:00 DEPRESSION SCREENING (12+) [code = DEPRESSION SCREENING (12+)] [facility] Future Scheduled Test 2023-07-20 00:00:00 DEPRESSION SCREENING (12+) [code = DEPRESSION SCREENING (12+)] [facility] Future Scheduled Test 2023-07-20 00:00:00 DEPRESSION SCREENING (12+) [code = DEPRESSION SCREENING (12+)] [facility] Future Scheduled Test 2023-07-20 00:00:00 DEPRESSION SCREENING (12+) [code = DEPRESSION SCREENING (12+)] [facility] Future Scheduled Test 2023-07-20 00:00:00 DEPRESSION SCREENING (12+) [code = DEPRESSION SCREENING (12+)] [facility] Future Scheduled Test 2023-07-20 00:00:00 DEPRESSION SCREENING (12+) [code = DEPRESSION SCREENING (12+)] [facility] Future Scheduled Test 2023-07-20 00:00:00 DEPRESSION SCREENING (12+) [code = DEPRESSION SCREENING (12+)] [facility] Future Scheduled Test 2023-07-20 00:00:00 DEPRESSION SCREENING (12+) [code = DEPRESSION SCREENING (12+)] [facility] Future Scheduled Test 2023-03-20 00:00:00 INFLUENZA VACCINE (Season Ended) [code = INFLUENZA VACCINE (Season Ended)] [facility] Future Scheduled Test 2023-03-20 00:00:00 INFLUENZA VACCINE (Season Ended) [code = INFLUENZA VACCINE (Season Ended)] [facility] Future Scheduled Test 2023-03-20 00:00:00 INFLUENZA VACCINE (Season Ended) [code = INFLUENZA VACCINE (Season Ended)] [facility] Future Scheduled Test 2023-03-20 00:00:00 INFLUENZA VACCINE (Season Ended) [code = INFLUENZA VACCINE (Season Ended)] [facility] Future Scheduled Test 2023-03-20 00:00:00 INFLUENZA VACCINE (Season Ended) [code = INFLUENZA VACCINE (Season Ended)] [facility] Future Scheduled Test 2023-03-20 00:00:00 INFLUENZA VACCINE (Season Ended) [code = INFLUENZA VACCINE (Season Ended)] [facility] Future Scheduled Test 2023-03-20 00:00:00 Influenza Vaccine (Season Ended) [code = Influenza Vaccine (Season Ended)] [facility] Future Scheduled Test 2023-03-20 00:00:00 Influenza Vaccine (Season Ended) [code = Influenza Vaccine (Season Ended)] [facility] Future Scheduled Test 2023-03-20 00:00:00 Influenza Vaccine (#1) [code = Influenza Vaccine (#1)] [facility] Future Scheduled Test 2023-03-20 00:00:00 Influenza Vaccine (#1) [code = Influenza Vaccine (#1)] [facility] Future Scheduled Test 2023-03-20 00:00:00 Influenza Vaccine (#1) [code = Influenza Vaccine (#1)] [facility] Future Scheduled Test 2023-03-20 00:00:00 Influenza Vaccine (#1) [code = Influenza Vaccine (#1)] [facility] Future Scheduled Test 2023-03-20 00:00:00 COVID-19 VACCINE ( season) [code = COVID-19 VACCINE ( season)] [facility] Future Scheduled Test 2023-03-20 00:00:00 Influenza Vaccine (#1) [code = Influenza Vaccine (#1)] [facility] Future Scheduled Test 2023-03-20 00:00:00 COVID-19 VACCINE ( season) [code = COVID-19 VACCINE ()] [facility] Future Scheduled Test 2023-03-20 00:00:00 Influenza Vaccine (#1) [code = Influenza Vaccine (#1)] [facility] Future Scheduled Test 2023-03-20 00:00:00 COVID-19 VACCINE ( season) [code = COVID-19 VACCINE ()] [facility] Future Scheduled Test 2023-03-20 00:00:00 Influenza Vaccine (#1) [code = Influenza Vaccine (#1)] [facility] Future Scheduled Test 2023-03-20 00:00:00 COVID-19 VACCINE ( season) [code = COVID-19 VACCINE ()] [facility] Future Scheduled Test 2023-03-20 00:00:00 Influenza Vaccine (#1) [code = Influenza Vaccine (#1)] [facility] Future Scheduled Test 2023-03-20 00:00:00 Influenza Vaccine (#1) [code = Influenza Vaccine (#1)] [facility] Future Scheduled Test 2023-03-20 00:00:00 COVID-19 VACCINE ( season) [code = COVID-19 VACCINE ()] [facility] Future Scheduled Test 2023-03-20 00:00:00 Influenza Vaccine (#1) [code = Influenza Vaccine (#1)] [facility] Future Scheduled Test 2023-03-20 00:00:00 COVID-19 VACCINE ( season) [code = COVID-19 VACCINE ( season)] [facility] Future Scheduled Test 2023-03-20 00:00:00 Influenza Vaccine (#1) [code = Influenza Vaccine (#1)] [facility] Future Scheduled Test 2023-03-20 00:00:00 COVID-19 VACCINE ( season) [code = COVID-19 VACCINE ()] [facility] Future Scheduled Test 2023-03-20 00:00:00 Influenza Vaccine (#1) [code = Influenza Vaccine (#1)] [facility] Future Scheduled Test 2023-03-20 00:00:00 COVID-19 VACCINE () [code = COVID-19 VACCINE ()] [facility] Future Scheduled Test 2023-03-20 00:00:00 Influenza Vaccine (#1) [code = Influenza Vaccine (#1)] [facility] Future Scheduled Test 2023-03-20 00:00:00 COVID-19 VACCINE ( season) [code = COVID-19 VACCINE ()] [facility] Future Scheduled Test 2023-03-20 00:00:00 Influenza Vaccine (#1) [code = Influenza Vaccine (#1)] [facility] Future Scheduled Test 2023-03-20 00:00:00 COVID-19 VACCINE ( season) [code = COVID-19 VACCINE ()] [facility] Future Scheduled Test 2023-03-20 00:00:00 Influenza Vaccine (#1) [code = Influenza Vaccine (#1)] [facility] Future Scheduled Test 2023-03-20 00:00:00 COVID-19 VACCINE (4 - 2023-24 season) [code = COVID-19 VACCINE ()] [facility] Future Scheduled Test 2023-03-20 00:00:00 Influenza Vaccine (#1) [code = Influenza Vaccine (#1)] [facility] Future Scheduled Test 2023-03-20 00:00:00 Influenza Vaccine (#1) [code = Influenza Vaccine (#1)] [facility] Future Scheduled Test 2023-03-20 00:00:00 COVID-19 VACCINE ( season) [code = COVID-19 VACCINE ()] [facility] Future Scheduled Test 2023-03-20 00:00:00 Influenza Vaccine (#1) [code = Influenza Vaccine (#1)] [facility] Future Scheduled Test 2023-03-20 00:00:00 COVID-19 VACCINE ( season) [code = COVID-19 VACCINE ()] [facility] Future Scheduled Test 2023-03-20 00:00:00 Influenza Vaccine (#1) [code = Influenza Vaccine (#1)] [facility] Future Scheduled Test 2023-03-20 00:00:00 COVID-19 VACCINE ( season) [code = COVID-19 VACCINE ()] [facility] Future Scheduled Test 2023-03-20 00:00:00 Influenza Vaccine (#1) [code = Influenza Vaccine (#1)] [facility] Future Scheduled Test 2023-03-20 00:00:00 COVID-19 VACCINE ( season) [code = COVID-19 VACCINE ( season)] [facility] Future Scheduled Test 2023-03-20 00:00:00 Influenza Vaccine (#1) [code = Influenza Vaccine (#1)] [facility] Future Scheduled Test 2023-03-20 00:00:00 COVID-19 VACCINE ( season) [code = COVID-19 VACCINE ()] [facility] Future Scheduled Test 2023-03-20 00:00:00 Influenza Vaccine (#1) [code = Influenza Vaccine (#1)] [facility] Future Scheduled Test 2023-03-20 00:00:00 COVID-19 VACCINE ( season) [code = COVID-19 VACCINE ( season)] [facility] Future Scheduled Test 2023-03-20 00:00:00 Influenza Vaccine (#1) [code = Influenza Vaccine (#1)] [facility] Future Scheduled Test 2023-03-20 00:00:00 Influenza Vaccine (#1) [code = Influenza Vaccine (#1)] [facility] Future Scheduled Test 2023-03-20 00:00:00 COVID-19 VACCINE ( season) [code = COVID-19 VACCINE ()] [facility] Future Scheduled Test 2023-03-20 00:00:00 Influenza Vaccine (#1) [code = Influenza Vaccine (#1)] [facility] Future Scheduled Test 2023-03-20 00:00:00 COVID-19 VACCINE ( season) [code = COVID-19 VACCINE ()] [facility] Future Scheduled Test 2023-03-20 00:00:00 Influenza Vaccine (#1) [code = Influenza Vaccine (#1)] [facility] Future Scheduled Test 2023-03-20 00:00:00 COVID-19 VACCINE ( season) [code = COVID-19 VACCINE ( season)] [facility] Future Scheduled Test 2023-03-20 00:00:00 Influenza Vaccine (#1) [code = Influenza Vaccine (#1)] [facility] Future Scheduled Test 2023-03-20 00:00:00 COVID-19 VACCINE ( season) [code = COVID-19 VACCINE ( season)] [facility] Future Scheduled Test 2023-03-20 00:00:00 Influenza Vaccine (#1) [code = Influenza Vaccine (#1)] [facility] Future Scheduled Test 2023-03-20 00:00:00 Influenza Vaccine (#1) [code = Influenza Vaccine (#1)] [facility] Future Scheduled Test 2023-03-20 00:00:00 COVID-19 VACCINE ( season) [code = COVID-19 VACCINE ( season)] [facility] Future Scheduled Test 2023-03-20 00:00:00 Influenza Vaccine (#1) [code = Influenza Vaccine (#1)] [facility] Future Scheduled Test 2023-03-20 00:00:00 COVID-19 VACCINE ( season) [code = COVID-19 VACCINE ()] [facility] Future Scheduled Test 2023-03-20 00:00:00 Influenza Vaccine (#1) [code = Influenza Vaccine (#1)] [facility] Future Scheduled Test 2023-03-20 00:00:00 COVID-19 VACCINE ( season) [code = COVID-19 VACCINE ()] [facility] Future Scheduled Test 2023-03-20 00:00:00 Influenza Vaccine (#1) [code = Influenza Vaccine (#1)] [facility] Future Scheduled Test 2023-03-20 00:00:00 COVID-19 VACCINE ( season) [code = COVID-19 VACCINE ()] [facility] Future Scheduled Test 2023-03-20 00:00:00 Influenza Vaccine (#1) [code = Influenza Vaccine (#1)] [facility] Future Scheduled Test 2023-03-20 00:00:00 COVID-19 VACCINE ( season) [code = COVID-19 VACCINE ( season)] [facility] Future Scheduled Test 2023-03-20 00:00:00 Influenza Vaccine (#1) [code = Influenza Vaccine (#1)] [facility] Future Scheduled Test 2023-03-20 00:00:00 COVID-19 VACCINE ( season) [code = COVID-19 VACCINE ( season)] [facility] Future Scheduled Test 2023-03-20 00:00:00 Influenza Vaccine (#1) [code = Influenza Vaccine (#1)] [facility] Future Scheduled Test 2023-03-20 00:00:00 Influenza Vaccine (#1) [code = Influenza Vaccine (#1)] [facility] Future Scheduled Test 2023-03-20 00:00:00 COVID-19 VACCINE ( season) [code = COVID-19 VACCINE ()] [facility] Future Scheduled Test 2023-03-20 00:00:00 Influenza Vaccine (#1) [code = Influenza Vaccine (#1)] [facility] Future Scheduled Test 2023-03-20 00:00:00 COVID-19 VACCINE () [code = COVID-19 VACCINE ()] [facility] Future Scheduled Test 2023-03-20 00:00:00 Influenza Vaccine (#1) [code = Influenza Vaccine (#1)] [facility] Future Scheduled Test 2023-03-20 00:00:00 COVID-19 VACCINE () [code = COVID-19 VACCINE ()] [facility] Future Scheduled Test 2023-03-20 00:00:00 COVID-19 VACCINE ( season) [code = COVID-19 VACCINE ()] [facility] Future Scheduled Test 2023-03-20 00:00:00 COVID-19 VACCINE () [code = COVID-19 VACCINE ()] [facility] Future Scheduled Test 2023-03-20 00:00:00 COVID-19 VACCINE () [code = COVID-19 VACCINE ()] [facility] Future Scheduled Test 2023-03-20 00:00:00 COVID-19 VACCINE ( season) [code = COVID-19 VACCINE ()] [facility] Future Scheduled Test 2023-03-20 00:00:00 COVID-19 VACCINE ( season) [code = COVID-19 VACCINE ()] [facility] Future Scheduled Test 2023-03-20 00:00:00 Influenza Vaccine (#1) [code = Influenza Vaccine (#1)] [facility] Future Scheduled Test 2023-03-20 00:00:00 COVID-19 VACCINE () [code = COVID-19 VACCINE ()] [facility] Future Scheduled Test 2023-03-20 00:00:00 COVID-19 VACCINE () [code = COVID-19 VACCINE ()] [facility] Future Scheduled Test 2023-03-20 00:00:00 COVID-19 VACCINE () [code = COVID-19 VACCINE ()] [facility] Future Scheduled Test 2023-03-20 00:00:00 COVID-19 VACCINE () [code = COVID-19 VACCINE ()] [facility] Future Scheduled Test 2023-03-20 00:00:00 Influenza Vaccine (#1) [code = Influenza Vaccine (#1)] [facility] Future Scheduled Test 2023-03-20 00:00:00 Influenza Vaccine (#1) [code = Influenza Vaccine (#1)] [facility] Future Scheduled Test 2023-03-20 00:00:00 Influenza Vaccine (#1) [code = Influenza Vaccine (#1)] [facility] Future Scheduled Test 2023-03-20 00:00:00 Influenza Vaccine (#1) [code = Influenza Vaccine (#1)] [facility] Future Scheduled Test 2023-03-20 00:00:00 Influenza Vaccine (#1) [code = Influenza Vaccine (#1)] [facility] Future Scheduled Test 2023-03-20 00:00:00 Influenza Vaccine (#1) [code = Influenza Vaccine (#1)] [facility] Future Scheduled Test 2023-03-20 00:00:00 Influenza Vaccine (#1) [code = Influenza Vaccine (#1)] [facility] Future Scheduled Test 2023-03-20 00:00:00 Influenza Vaccine (#1) [code = Influenza Vaccine (#1)] [facility] Future Scheduled Test 2023-03-20 00:00:00 Influenza Vaccine (#1) [code = Influenza Vaccine (#1)] [facility] Future Scheduled Test 2023-03-20 00:00:00 COVID-19 VACCINE ( season) [code = COVID-19 VACCINE ( season)] [facility] Future Scheduled Test 2022-07-20 00:00:00 DEPRESSION SCREENING (12+) [code = DEPRESSION SCREENING (12+)] [facility] Future Scheduled Test 2022-07-20 00:00:00 DEPRESSION SCREENING (12+) [code = DEPRESSION SCREENING (12+)] [facility] Future Scheduled Test 2022-07-20 00:00:00 DEPRESSION SCREENING (12+) [code = DEPRESSION SCREENING (12+)] [facility] Future Scheduled Test 2022-07-20 00:00:00 DEPRESSION SCREENING (12+) [code = DEPRESSION SCREENING (12+)] [facility] Future Scheduled Test 2022-07-20 00:00:00 DEPRESSION SCREENING (12+) [code = DEPRESSION SCREENING (12+)] [facility] Future Scheduled Test 2022-07-20 00:00:00 DEPRESSION SCREENING (12+) [code = DEPRESSION SCREENING (12+)] [facility] Future Scheduled Test 2022-07-20 00:00:00 DEPRESSION SCREENING (12+) [code = DEPRESSION SCREENING (12+)] [facility] Future Scheduled Test 2022-07-20 00:00:00 DEPRESSION SCREENING (12+) [code = DEPRESSION SCREENING (12+)] [facility] Future Scheduled Test 2022-07-20 00:00:00 DEPRESSION SCREENING (12+) [code = DEPRESSION SCREENING (12+)] [facility] Future Scheduled Test 2022-07-20 00:00:00 DEPRESSION SCREENING (12+) [code = DEPRESSION SCREENING (12+)] [facility] Future Scheduled Test 2022-07-20 00:00:00 DEPRESSION SCREENING (12+) [code = DEPRESSION SCREENING (12+)] [facility] Future Scheduled Test 2022-07-20 00:00:00 DEPRESSION SCREENING (12+) [code = DEPRESSION SCREENING (12+)] [facility] Future Scheduled Test 2022-07-20 00:00:00 DEPRESSION SCREENING (12+) [code = DEPRESSION SCREENING (12+)] [facility] Future Scheduled Test 2022-07-20 00:00:00 DEPRESSION SCREENING (12+) [code = DEPRESSION SCREENING (12+)] [facility] Future Scheduled Test 2022-07-20 00:00:00 DEPRESSION SCREENING (12+) [code = DEPRESSION SCREENING (12+)] [facility] Future Scheduled Test 2022-07-20 00:00:00 DEPRESSION SCREENING (12+) [code = DEPRESSION SCREENING (12+)] [facility] Future Scheduled Test 2022-07-20 00:00:00 DEPRESSION SCREENING (12+) [code = DEPRESSION SCREENING (12+)] [facility] Future Scheduled Test 2022-07-20 00:00:00 DEPRESSION SCREENING (12+) [code = DEPRESSION SCREENING (12+)] [facility] Future Scheduled Test 2022-07-20 00:00:00 DEPRESSION SCREENING (12+) [code = DEPRESSION SCREENING (12+)] [facility] Future Scheduled Test 2022-07-20 00:00:00 DEPRESSION SCREENING (12+) [code = DEPRESSION SCREENING (12+)] [facility] Future Scheduled Test 2022-07-20 00:00:00 DEPRESSION SCREENING (12+) [code = DEPRESSION SCREENING (12+)] [facility] Future Scheduled Test 2022-07-20 00:00:00 DEPRESSION SCREENING (12+) [code = DEPRESSION SCREENING (12+)] [facility] Future Scheduled Test 2022-07-20 00:00:00 DEPRESSION SCREENING (12+) [code = DEPRESSION SCREENING (12+)] [facility] Future Scheduled Test 2022-07-20 00:00:00 DEPRESSION SCREENING (12+) [code = DEPRESSION SCREENING (12+)] [facility] Future Scheduled Test 2022-07-20 00:00:00 DEPRESSION SCREENING (12+) [code = DEPRESSION SCREENING (12+)] [facility] Future Scheduled Test 2022-07-20 00:00:00 DEPRESSION SCREENING (12+) [code = DEPRESSION SCREENING (12+)] [facility] Future Scheduled Test 2022-07-20 00:00:00 DEPRESSION SCREENING (12+) [code = DEPRESSION SCREENING (12+)] [facility] Future Scheduled Test 2022-07-20 00:00:00 DEPRESSION SCREENING (12+) [code = DEPRESSION SCREENING (12+)] [facility] Future Scheduled Test 2022-07-20 00:00:00 DEPRESSION SCREENING (12+) [code = DEPRESSION SCREENING (12+)] [facility] Future Scheduled Test 2022-07-20 00:00:00 DEPRESSION SCREENING (12+) [code = DEPRESSION SCREENING (12+)] [facility] Future Scheduled Test 2022-07-20 00:00:00 DEPRESSION SCREENING (12+) [code = DEPRESSION SCREENING (12+)] [facility] Future Scheduled Test 2022-07-20 00:00:00 DEPRESSION SCREENING (12+) [code = DEPRESSION SCREENING (12+)] [facility] Future Scheduled Test 2022-07-20 00:00:00 DEPRESSION SCREENING (12+) [code = DEPRESSION SCREENING (12+)] [facility] Future Scheduled Test 2022-06-21 00:00:00 COVID-19 VACCINE (4 - Booster for Pfizer series) [code = COVID-19 VACCINE (4 - Booster for Pfizer series)] [facility] Future Scheduled Test 2022-06-21 00:00:00 COVID-19 VACCINE (4 - Booster for Pfizer series) [code = COVID-19 VACCINE (4 - Booster for Pfizer series)] [facility] Future Scheduled Test 2022-06-21 00:00:00 COVID-19 VACCINE (4 - Booster for Pfizer series) [code = COVID-19 VACCINE (4 - Booster for Pfizer series)] [facility] Future Scheduled Test 2022-06-21 00:00:00 COVID-19 VACCINE (4 - Booster for Pfizer series) [code = COVID-19 VACCINE (4 - Booster for Pfizer series)] [facility] Future Scheduled Test 2022-04-16 00:00:00 COVID-19 VACCINE (4 - Booster for Pfizer series) [code = COVID-19 VACCINE (4 - Booster for Pfizer series)] [facility] Future Scheduled Test 2022-04-16 00:00:00 COVID-19 VACCINE (4 - Booster for Pfizer series) [code = COVID-19 VACCINE (4 - Booster for Pfizer series)] [facility] Future Scheduled Test 2022-04-16 00:00:00 COVID-19 VACCINE (4 - Booster for Pfizer series) [code = COVID-19 VACCINE (4 - Booster for Pfizer series)] [facility] Future Scheduled Test 2022-04-16 00:00:00 COVID-19 VACCINE (4 - Booster for Pfizer series) [code = COVID-19 VACCINE (4 - Booster for Pfizer series)] [facility] Future Scheduled Test 2022-04-16 00:00:00 COVID-19 VACCINE (4 - Booster for Pfizer series) [code = COVID-19 VACCINE (4 - Booster for Pfizer series)] [facility] Future Scheduled Test 2022-04-16 00:00:00 COVID-19 VACCINE (4 - Booster for Pfizer series) [code = COVID-19 VACCINE (4 - Booster for Pfizer series)] [facility] Future Scheduled Test 2022-04-16 00:00:00 COVID-19 VACCINE (4 - Booster for Pfizer series) [code = COVID-19 VACCINE (4 - Booster for Pfizer series)] [facility] Future Scheduled Test 2022-04-16 00:00:00 COVID-19 VACCINE (4 - Booster for Pfizer series) [code = COVID-19 VACCINE (4 - Booster for Pfizer series)] [facility] Future Scheduled Test 2022-04-16 00:00:00 COVID-19 VACCINE (4 - Booster for Pfizer series) [code = COVID-19 VACCINE (4 - Booster for Pfizer series)] [facility] Future Scheduled Test 2022-04-16 00:00:00 COVID-19 VACCINE (4 - Booster for Pfizer series) [code = COVID-19 VACCINE (4 - Booster for Pfizer series)] [facility] Future Scheduled Test 2022-04-16 00:00:00 COVID-19 VACCINE (4 - Booster for Pfizer series) [code = COVID-19 VACCINE (4 - Booster for Pfizer series)] [facility] Future Scheduled Test 2022-04-16 00:00:00 COVID-19 VACCINE (4 - Booster for Pfizer series) [code = COVID-19 VACCINE (4 - Booster for Pfizer series)] [facility] Future Scheduled Test 2022-04-16 00:00:00 COVID-19 VACCINE (4 - Booster for Pfizer series) [code = COVID-19 VACCINE (4 - Booster for Pfizer series)] [facility] Future Scheduled Test 2022-04-16 00:00:00 COVID-19 VACCINE (4 - Booster for Pfizer series) [code = COVID-19 VACCINE (4 - Booster for Pfizer series)] [facility] Future Scheduled Test 2022-04-16 00:00:00 COVID-19 VACCINE (4 - Booster for Pfizer series) [code = COVID-19 VACCINE (4 - Booster for Pfizer series)] [facility] Future Scheduled Test 2022-04-16 00:00:00 COVID-19 VACCINE (4 - Booster for Pfizer series) [code = COVID-19 VACCINE (4 - Booster for Pfizer series)] [facility] Future Scheduled Test 2022-04-16 00:00:00 COVID-19 VACCINE (4 - Booster for Pfizer series) [code = COVID-19 VACCINE (4 - Booster for Pfizer series)] [facility] Future Scheduled Test 2022-04-16 00:00:00 COVID-19 VACCINE (4 - Booster for Pfizer series) [code = COVID-19 VACCINE (4 - Booster for Pfizer series)] [facility] Future Scheduled Test 2022-04-16 00:00:00 COVID-19 VACCINE (4 - Booster for Pfizer series) [code = COVID-19 VACCINE (4 - Booster for Pfizer series)] [facility] Future Scheduled Test 2022-04-16 00:00:00 COVID-19 VACCINE (4 - Booster for Pfizer series) [code = COVID-19 VACCINE (4 - Booster for Pfizer series)] [facility] Future Scheduled Test 2022-04-16 00:00:00 COVID-19 VACCINE (4 - Pfizer series) [code = COVID-19 VACCINE (4 - Pfizer series)] [facility] Future Scheduled Test 2022-04-16 00:00:00 COVID-19 VACCINE (4 - Pfizer series) [code = COVID-19 VACCINE (4 - Pfizer series)] [facility] Future Scheduled Test 2022-04-16 00:00:00 COVID-19 VACCINE (4 - Pfizer series) [code = COVID-19 VACCINE (4 - Pfizer series)] [facility] Future Scheduled Test 2022-04-16 00:00:00 COVID-19 VACCINE (4 - Pfizer series) [code = COVID-19 VACCINE (4 - Pfizer series)] [facility] Future Scheduled Test 2022-04-16 00:00:00 COVID-19 VACCINE (4 - Booster for Pfizer series) [code = COVID-19 VACCINE (4 - Booster for Pfizer series)] [facility] Future Scheduled Test 2022-04-16 00:00:00 COVID-19 VACCINE (4 - Pfizer series) [code = COVID-19 VACCINE (4 - Pfizer series)] [facility] Future Scheduled Test 2022-03-20 00:00:00 INFLUENZA VACCINE (#1) [code = INFLUENZA VACCINE (#1)] [facility] Future Scheduled Test 2022-03-20 00:00:00 INFLUENZA VACCINE (#1) [code = INFLUENZA VACCINE (#1)] [facility] Future Scheduled Test 2022-03-20 00:00:00 INFLUENZA VACCINE (#1) [code = INFLUENZA VACCINE (#1)] [facility] Future Scheduled Test 2022-03-20 00:00:00 INFLUENZA VACCINE (#1) [code = INFLUENZA VACCINE (#1)] [facility] Future Scheduled Test 2022-01-14 00:00:00 SHINGLES VACCINES (1 of 2) [code = SHINGLES VACCINES (1 of 2)] [facility] Future Scheduled Test 2022-01-14 00:00:00 SHINGLES VACCINES (1 of 2) [code = SHINGLES VACCINES (1 of 2)] [facility] Future Scheduled Test 2022-01-14 00:00:00 SHINGLES VACCINES (1 of 2) [code = SHINGLES VACCINES (1 of 2)] [facility] Future Scheduled Test 2022-01-14 00:00:00 SHINGLES VACCINES (1 of 2) [code = SHINGLES VACCINES (1 of 2)] [facility] Future Scheduled Test 2022-01-14 00:00:00 SHINGLES VACCINES (1 of 2) [code = SHINGLES VACCINES (1 of 2)] [facility] Future Scheduled Test 2022-01-14 00:00:00 SHINGLES VACCINES (1 of 2) [code = SHINGLES VACCINES (1 of 2)] [facility] Future Scheduled Test 2022-01-14 00:00:00 SHINGLES VACCINES (1 of 2) [code = SHINGLES VACCINES (1 of 2)] [facility] Future Scheduled Test 2022-01-14 00:00:00 SHINGLES VACCINES (1 of 2) [code = SHINGLES VACCINES (1 of 2)] [facility] Future Scheduled Test 2022-01-14 00:00:00 SHINGLES VACCINES (1 of 2) [code = SHINGLES VACCINES (1 of 2)] [facility] Future Scheduled Test 2022-01-14 00:00:00 SHINGLES VACCINES (1 of 2) [code = SHINGLES VACCINES (1 of 2)] [facility] Future Scheduled Test 2022-01-14 00:00:00 SHINGLES VACCINES (1 of 2) [code = SHINGLES VACCINES (1 of 2)] [facility] Future Scheduled Test 2022-01-14 00:00:00 SHINGLES VACCINES (1 of 2) [code = SHINGLES VACCINES (1 of 2)] [facility] Future Scheduled Test 2022-01-14 00:00:00 SHINGLES VACCINES (1 of 2) [code = SHINGLES VACCINES (1 of 2)] [facility] Future Scheduled Test 2022-01-14 00:00:00 SHINGLES VACCINES (1 of 2) [code = SHINGLES VACCINES (1 of 2)] [facility] Future Scheduled Test 2022-01-14 00:00:00 SHINGLES VACCINES (1 of 2) [code = SHINGLES VACCINES (1 of 2)] [facility] Future Scheduled Test 2022-01-14 00:00:00 Screening for malignant neoplasm of lung (procedure) [code = [id number]] [facility] Future Scheduled Test 2022-01-14 00:00:00 SHINGLES VACCINES (1 of 2) [code = SHINGLES VACCINES (1 of 2)] [facility] Future Scheduled Test 2022-01-14 00:00:00 Screening for malignant neoplasm of lung (procedure) [code = [id number]] [facility] Future Scheduled Test 2022-01-14 00:00:00 SHINGLES VACCINES (1 of 2) [code = SHINGLES VACCINES (1 of 2)] [facility] Future Scheduled Test 2022-01-14 00:00:00 Screening for malignant neoplasm of lung (procedure) [code = [id number]] [facility] Future Scheduled Test 2022-01-14 00:00:00 SHINGLES VACCINES (1 of 2) [code = SHINGLES VACCINES (1 of 2)] [facility] Future Scheduled Test 2022-01-14 00:00:00 Screening for malignant neoplasm of lung (procedure) [code = [id number]] [facility] Future Scheduled Test 2022-01-14 00:00:00 SHINGLES VACCINES (1 of 2) [code = SHINGLES VACCINES (1 of 2)] [facility] Future Scheduled Test 2022-01-14 00:00:00 Screening for malignant neoplasm of lung (procedure) [code = [id number]] [facility] Future Scheduled Test 2022-01-14 00:00:00 SHINGLES VACCINES (1 of 2) [code = SHINGLES VACCINES (1 of 2)] [facility] Future Scheduled Test 2022-01-14 00:00:00 Screening for malignant neoplasm of lung (procedure) [code = [id number]] [facility] Future Scheduled Test 2022-01-14 00:00:00 SHINGLES VACCINES (1 of 2) [code = SHINGLES VACCINES (1 of 2)] [facility] Future Scheduled Test 2022-01-14 00:00:00 Screening for malignant neoplasm of lung (procedure) [code = [id number]] [facility] Future Scheduled Test 2022-01-14 00:00:00 SHINGLES VACCINES (1 of 2) [code = SHINGLES VACCINES (1 of 2)] [facility] Future Scheduled Test 2022-01-14 00:00:00 Screening for malignant neoplasm of lung (procedure) [code = [id number]] [facility] Future Scheduled Test 2022-01-14 00:00:00 SHINGLES VACCINES (1 of 2) [code = SHINGLES VACCINES (1 of 2)] [facility] Future Scheduled Test 2022-01-14 00:00:00 Screening for malignant neoplasm of lung (procedure) [code = [id number]] [facility] Future Scheduled Test 2022-01-14 00:00:00 SHINGLES VACCINES (1 of 2) [code = SHINGLES VACCINES (1 of 2)] [facility] Future Scheduled Test 2022-01-14 00:00:00 Screening for malignant neoplasm of lung (procedure) [code = [id number]] [facility] Future Scheduled Test 2022-01-14 00:00:00 SHINGLES VACCINES (1 of 2) [code = SHINGLES VACCINES (1 of 2)] [facility] Future Scheduled Test 2022-01-14 00:00:00 Screening for malignant neoplasm of lung (procedure) [code = [id number]] [facility] Future Scheduled Test 2022-01-14 00:00:00 SHINGLES VACCINES (1 of 2) [code = SHINGLES VACCINES (1 of 2)] [facility] Future Scheduled Test 2022-01-14 00:00:00 Screening for malignant neoplasm of lung (procedure) [code = 633598540] [facility] Future Scheduled Test 2022-01-14 00:00:00 SHINGLES VACCINES (1 of 2) [code = SHINGLES VACCINES (1 of 2)] [facility] Future Scheduled Test 2022-01-14 00:00:00 Screening for malignant neoplasm of lung (procedure) [code = [id number]] [facility] Future Scheduled Test 2022-01-14 00:00:00 SHINGLES VACCINES (1 of 2) [code = SHINGLES VACCINES (1 of 2)] [facility] Future Scheduled Test 2022-01-14 00:00:00 Screening for malignant neoplasm of lung (procedure) [code = 410651380] [facility] Future Scheduled Test 2022-01-14 00:00:00 SHINGLES VACCINES (1 of 2) [code = SHINGLES VACCINES (1 of 2)] [facility] Future Scheduled Test 2022-01-14 00:00:00 Screening for malignant neoplasm of lung (procedure) [code = [id number]] [facility] Future Scheduled Test 2022-01-14 00:00:00 SHINGLES VACCINES (1 of 2) [code = SHINGLES VACCINES (1 of 2)] [facility] Future Scheduled Test 2022-01-14 00:00:00 Screening for malignant neoplasm of lung (procedure) [code = 924910364] [facility] Future Scheduled Test 2022-01-14 00:00:00 SHINGLES VACCINES (1 of 2) [code = SHINGLES VACCINES (1 of 2)] [facility] Future Scheduled Test 2022-01-14 00:00:00 Screening for malignant neoplasm of lung (procedure) [code = 567377623] [facility] Future Scheduled Test 2022-01-14 00:00:00 SHINGLES VACCINES (1 of 2) [code = SHINGLES VACCINES (1 of 2)] [facility] Future Scheduled Test 2022-01-14 00:00:00 Screening for malignant neoplasm of lung (procedure) [code = 515009583] [facility] Future Scheduled Test 2022-01-14 00:00:00 SHINGLES VACCINES (1 of 2) [code = SHINGLES VACCINES (1 of 2)] [facility] Future Scheduled Test 2022-01-14 00:00:00 Screening for malignant neoplasm of lung (procedure) [code = [id number]] [facility] Future Scheduled Test 2022-01-14 00:00:00 Screening for malignant neoplasm of lung (procedure) [code = 992795156] [facility] [facility] Test 2022-01-14 00:00:00 SHINGLES VACCINES (1 of 2) [code = SHINGLES VACCINES (1 of 2)] [facility] Future Scheduled Test 2022-01-14 00:00:00 SHINGLES VACCINES (1 of 2) [code = SHINGLES VACCINES (1 of 2)] [facility] Future Scheduled Test 2022-01-14 00:00:00 Screening for malignant neoplasm of lung (procedure) [code = [id number]] [facility] Future Scheduled Test 2022-01-14 00:00:00 SHINGLES VACCINES (1 of 2) [code = SHINGLES VACCINES (1 of 2)] [facility] Future Scheduled Test 2022-01-14 00:00:00 Screening for malignant neoplasm of lung (procedure) [code = [id number]] [facility] Future Scheduled Test 2022-01-14 00:00:00 SHINGLES VACCINES (1 of 2) [code = SHINGLES VACCINES (1 of 2)] [facility] Future Scheduled Test 2022-01-14 00:00:00 Screening for malignant neoplasm of lung (procedure) [code = [id number]] [facility] Future Scheduled Test 2022-01-14 00:00:00 SHINGLES VACCINES (1 of 2) [code = SHINGLES VACCINES (1 of 2)] [facility] Future Scheduled Test 2022-01-14 00:00:00 Screening for malignant neoplasm of lung (procedure) [code = [id number]] [facility] Future Scheduled Test 2022-01-14 00:00:00 Screening for malignant neoplasm of lung (procedure) [code = [id number]] [facility] Future Scheduled Test 2022-01-14 00:00:00 SHINGLES VACCINES (1 of 2) [code = SHINGLES VACCINES (1 of 2)] [facility] Future Scheduled Test 2022-01-14 00:00:00 SHINGLES VACCINES (1 of 2) [code = SHINGLES VACCINES (1 of 2)] [facility] Future Scheduled Test 2022-01-14 00:00:00 Screening for malignant neoplasm of lung (procedure) [code = [id number]] [facility] Future Scheduled Test 2022-01-14 00:00:00 SHINGLES VACCINES (1 of 2) [code = SHINGLES VACCINES (1 of 2)] [facility] Future Scheduled Test 2022-01-14 00:00:00 Screening for malignant neoplasm of lung (procedure) [code = [id number]] [facility] Future Scheduled Test 2022-01-14 00:00:00 SHINGLES VACCINES (1 of 2) [code = SHINGLES VACCINES (1 of 2)] [facility] Future Scheduled Test 2022-01-14 00:00:00 Screening for malignant neoplasm of lung (procedure) [code = [id number]] [facility] Future Scheduled Test 2022-01-14 00:00:00 SHINGLES VACCINES (1 of 2) [code = SHINGLES VACCINES (1 of 2)] [facility] Future Scheduled Test 2022-01-14 00:00:00 Screening for malignant neoplasm of lung (procedure) [code = [id number]] [facility] Future Scheduled Test 2022-01-14 00:00:00 SHINGLES VACCINES (1 of 2) [code = SHINGLES VACCINES (1 of 2)] [facility] Future Scheduled Test 2022-01-14 00:00:00 Screening for malignant neoplasm of lung (procedure) [code = [id number]] [facility] Future Scheduled Test 2022-01-14 00:00:00 SHINGLES VACCINES (1 of 2) [code = SHINGLES VACCINES (1 of 2)] [facility] Future Scheduled Test 2022-01-14 00:00:00 Screening for malignant neoplasm of lung (procedure) [code = [id number]] [facility] Future Scheduled Test 2022-01-14 00:00:00 Screening for malignant neoplasm of lung (procedure) [code = [id number]] [facility] Future Scheduled Test 2022-01-14 00:00:00 SHINGLES VACCINES (1 of 2) [code = SHINGLES VACCINES (1 of 2)] [facility] Future Scheduled Test 2022-01-14 00:00:00 SHINGLES VACCINES (1 of 2) [code = SHINGLES VACCINES (1 of 2)] [facility] Future Scheduled Test 2022-01-14 00:00:00 Screening for malignant neoplasm of lung (procedure) [code = 094226867] [facility] Future Scheduled Test 2022-01-14 00:00:00 SHINGLES VACCINES (1 of 2) [code = SHINGLES VACCINES (1 of 2)] [facility] Future Scheduled Test 2022-01-14 00:00:00 Screening for malignant neoplasm of lung (procedure) [code = 117292442] [facility] Future Scheduled Test 2022-01-14 00:00:00 SHINGLES VACCINES (1 of 2) [code = SHINGLES VACCINES (1 of 2)] [facility] Future Scheduled Test 2022-01-14 00:00:00 Screening for malignant neoplasm of lung (procedure) [code = 892746554] [facility] Future Scheduled Test 2022-01-14 00:00:00 SHINGLES VACCINES (1 of 2) [code = SHINGLES VACCINES (1 of 2)] [facility] Future Scheduled Test 2022-01-14 00:00:00 Screening for malignant neoplasm of lung (procedure) [code = 757382836] [facility] Future Scheduled Test 2022-01-14 00:00:00 SHINGLES VACCINES (1 of 2) [code = SHINGLES VACCINES (1 of 2)] [facility] Future Scheduled Test 2022-01-14 00:00:00 Screening for malignant neoplasm of lung (procedure) [code = 624273476] [facility] Future Scheduled Test 2022-01-14 00:00:00 SHINGLES VACCINES (1 of 2) [code = SHINGLES VACCINES (1 of 2)] [facility] Future Scheduled Test 2022-01-14 00:00:00 Screening for malignant neoplasm of lung (procedure) [code = 194856667] [facility] Future Scheduled Test 2022-01-14 00:00:00 SHINGLES VACCINES (1 of 2) [code = SHINGLES VACCINES (1 of 2)] [facility] Future Scheduled Test 2022-01-14 00:00:00 Screening for malignant neoplasm of lung (procedure) [code = [id number]] [facility] Future Scheduled Test 2022-01-14 00:00:00 SHINGLES VACCINES (1 of 2) [code = SHINGLES VACCINES (1 of 2)] [facility] Future Scheduled Test 2022-01-14 00:00:00 Screening for malignant neoplasm of lung (procedure) [code = [id number]] [facility] Future Scheduled Test 2022-01-14 00:00:00 SHINGLES VACCINES (1 of 2) [code = SHINGLES VACCINES (1 of 2)] [facility] Future Scheduled Test 2022-01-14 00:00:00 Screening for malignant neoplasm of lung (procedure) [code = 680762092] [facility] Future Scheduled Test 2022-01-14 00:00:00 SHINGLES VACCINES (1 of 2) [code = SHINGLES VACCINES (1 of 2)] [facility] Future Scheduled Test 2022-01-14 00:00:00 Screening for malignant neoplasm of lung (procedure) [code = 485348502] [facility] Future Scheduled Test 2022-01-14 00:00:00 SHINGLES VACCINES (1 of 2) [code = SHINGLES VACCINES (1 of 2)] [facility] Scheduled Test 2022-01-14 00:00:00 Screening for malignant neoplasm of lung (procedure) [code = [id number]] [facility] Future Scheduled Test 2022-01-14 00:00:00 SHINGLES VACCINES (1 of 2) [code = SHINGLES VACCINES (1 of 2)] [facility] Future Scheduled Test 2022-01-14 00:00:00 Screening for malignant neoplasm of lung (procedure) [code = 719214034] [facility] Future Scheduled Test 2022-01-14 00:00:00 SHINGLES VACCINES (1 of 2) [code = SHINGLES VACCINES (1 of 2)] [facility] Future Scheduled Test 2022-01-14 00:00:00 Screening for malignant neoplasm of lung (procedure) [code = 212432943] [facility] Scheduled Test 2022-01-14 00:00:00 SHINGLES VACCINES (1 of 2) [code = SHINGLES VACCINES (1 of 2)] [facility] Scheduled Test 2022-01-14 00:00:00 Screening for malignant neoplasm of lung (procedure) [code = 110620670] [facility] Scheduled Test 2022-01-14 00:00:00 SHINGLES VACCINES (1 of 2) [code = SHINGLES VACCINES (1 of 2)] [facility] Scheduled Test 2022-01-14 00:00:00 SHINGLES VACCINES (1 of 2) [code = SHINGLES VACCINES (1 of 2)] [facility] Scheduled Test 2022-01-14 00:00:00 SHINGLES VACCINES (1 of 2) [code = SHINGLES VACCINES (1 of 2)] [facility] Scheduled Test 2022-01-14 00:00:00 Screening for malignant neoplasm of lung (procedure) [code = [id number]] [facility] Scheduled Test 2022-01-14 00:00:00 SHINGLES VACCINES (1 of 2) [code = SHINGLES VACCINES (1 of 2)] [facility] Scheduled Test 2022-01-14 00:00:00 Screening for malignant neoplasm of lung (procedure) [code = [id number]] [facility] Scheduled Test 2022-01-14 00:00:00 SHINGLES VACCINES (1 of 2) [code = SHINGLES VACCINES (1 of 2)] [facility] Scheduled Test 2022-01-14 00:00:00 Screening for malignant neoplasm of lung (procedure) [code = 852779841] [facility] Future Scheduled Test 2022-01-14 00:00:00 SHINGLES VACCINES (1 of 2) [code = SHINGLES VACCINES (1 of 2)] [facility] Scheduled Test 2022-01-14 00:00:00 Screening for malignant neoplasm of lung (procedure) [code = 690805799] [facility] Scheduled Test 2022-01-14 00:00:00 SHINGLES VACCINES (1 of 2) [code = SHINGLES VACCINES (1 of 2)] [facility] Scheduled Test 2022-01-14 00:00:00 Screening for malignant neoplasm of lung (procedure) [code = [id number]] [facility] Scheduled Test 2022-01-14 00:00:00 SHINGLES VACCINES (1 of 2) [code = SHINGLES VACCINES (1 of 2)] [facility] Scheduled Test 2022-01-14 00:00:00 Screening for malignant neoplasm of lung (procedure) [code = 085648773] [facility] Scheduled Test 2022-01-14 00:00:00 SHINGLES VACCINES (1 of 2) [code = SHINGLES VACCINES (1 of 2)] [facility] Scheduled Test 2022-01-14 00:00:00 Screening for malignant neoplasm of lung (procedure) [code = 258160705] [facility] Future Scheduled Test 2022-01-14 00:00:00 SHINGLES VACCINES (1 of 2) [code = SHINGLES VACCINES (1 of 2)] [facility] Future Scheduled Test 2013-12-15 00:00:00 PNEUMOCOCCAL VACCINE 0-64 YRS (2 - PCV) [code = PNEUMOCOCCAL VACCINE 0-64 YRS (2 - PCV)] [facility] Future Scheduled Test 2013-12-15 00:00:00 PNEUMOCOCCAL VACCINE 0-64 YRS (2 - PCV) [code = PNEUMOCOCCAL VACCINE 0-64 YRS (2 - PCV)] [facility] Future Scheduled Test 2013-12-15 00:00:00 PNEUMOCOCCAL VACCINE 0-64 YRS (2 - PCV) [code = PNEUMOCOCCAL VACCINE 0-64 YRS (2 - PCV)] [facility] Future Scheduled Test 2013-12-15 00:00:00 PNEUMOCOCCAL VACCINE 0-64 YRS (2 - PCV) [code = PNEUMOCOCCAL VACCINE 0-64 YRS (2 - PCV)] [facility] Future Scheduled Test 2013-12-15 00:00:00 Pneumococcal Vaccine: 0-64 Years (2 - PCV) [code = Pneumococcal Vaccine: 0-64 Years (2 - PCV)] [facility] Future Scheduled Test 2013-12-15 00:00:00 Pneumococcal Vaccine: 0-64 Years (2 - PCV) [code = Pneumococcal Vaccine: 0-64 Years (2 - PCV)] [facility] Future Scheduled Test 2013-12-15 00:00:00 Pneumococcal Vaccine: 0-64 Years (2 - PCV) [code = Pneumococcal Vaccine: 0-64 Years (2 - PCV)] [facility] Future Scheduled Test 2013-12-15 00:00:00 Pneumococcal Vaccine: 0-64 Years (2 - PCV) [code = Pneumococcal Vaccine: 0-64 Years (2 - PCV)] [facility] Scheduled Test 2013-12-15 00:00:00 Pneumococcal Vaccine: 0-64 Years (2 - PCV) [code = Pneumococcal Vaccine: 0-64 Years (2 - PCV)] [facility] Scheduled Test 2013-12-15 00:00:00 Pneumococcal Vaccine: 0-64 Years (2 - PCV) [code = Pneumococcal Vaccine: 0-64 Years (2 - PCV)] [facility] Scheduled Test 2013-12-15 00:00:00 Pneumococcal Vaccine: 0-64 Years (2 - PCV) [code = Pneumococcal Vaccine: 0-64 Years (2 - PCV)] [facility] Future Scheduled Test 2013-12-15 00:00:00 Pneumococcal Vaccine: 0-64 Years (2 - PCV) [code = Pneumococcal Vaccine: 0-64 Years (2 - PCV)] [facility] Future Scheduled Test 2013-12-15 00:00:00 Pneumococcal Vaccine: 0-64 Years (2 - PCV) [code = Pneumococcal Vaccine: 0-64 Years (2 - PCV)] [facility] Future Scheduled Test 2013-12-15 00:00:00 Pneumococcal Vaccine: 0-64 Years (2 - PCV) [code = Pneumococcal Vaccine: 0-64 Years (2 - PCV)] [facility] Future Scheduled Test 2013-12-15 00:00:00 Pneumococcal Vaccine: 0-64 Years (2 - PCV) [code = Pneumococcal Vaccine: 0-64 Years (2 - PCV)] [facility] Future Scheduled Test 2013-12-15 00:00:00 Pneumococcal Vaccine: 0-64 Years (2 - PCV) [code = Pneumococcal Vaccine: 0-64 Years (2 - PCV)] [facility] Scheduled Test 2013-12-15 00:00:00 Pneumococcal Vaccine: 0-64 Years (2 - PCV) [code = Pneumococcal Vaccine: 0-64 Years (2 - PCV)] [facility] Future Scheduled Test 2013-12-15 00:00:00 Pneumococcal Vaccine: 0-64 Years (2 - PCV) [code = Pneumococcal Vaccine: 0-64 Years (2 - PCV)] [facility] Future Scheduled Test 2013-12-15 00:00:00 Pneumococcal Vaccine: 0-64 Years (2 - PCV) [code = Pneumococcal Vaccine: 0-64 Years (2 - PCV)] [facility] Future Scheduled Test 2013-12-15 00:00:00 Pneumococcal Vaccine: 0-64 Years (2 - PCV) [code = Pneumococcal Vaccine: 0-64 Years (2 - PCV)] [facility] Future Scheduled Test 2013-12-15 00:00:00 Pneumococcal Vaccine: 0-64 Years (2 - PCV) [code = Pneumococcal Vaccine: 0-64 Years (2 - PCV)] [facility] Scheduled Test 2013-12-15 00:00:00 Pneumococcal Vaccine: 0-64 Years (2 - PCV) [code = Pneumococcal Vaccine: 0-64 Years (2 - PCV)] [facility] Future Scheduled Test 2013-12-15 00:00:00 Pneumococcal Vaccine: 0-64 Years (2 - PCV) [code = Pneumococcal Vaccine: 0-64 Years (2 - PCV)] [facility] Future Scheduled Test 2013-12-15 00:00:00 Pneumococcal Vaccine: 0-64 Years (2 - PCV) [code = Pneumococcal Vaccine: 0-64 Years (2 - PCV)] [facility] Scheduled Test 2013-12-15 00:00:00 Pneumococcal Vaccine: 0-64 Years (2 of 2 - PCV) [code = Pneumococcal Vaccine: 0-64 Years (2 of 2 - PCV)] [facility] Future Scheduled Test 2013-12-15 00:00:00 Pneumococcal Vaccine: 0-64 Years (2 of 2 - PCV) [code = Pneumococcal Vaccine: 0-64 Years (2 of 2 - PCV)] [facility] Scheduled Test 2013-12-15 00:00:00 Pneumococcal Vaccine: 0-64 Years (2 of 2 - PCV) [code = Pneumococcal Vaccine: 0-64 Years (2 of 2 - PCV)] [facility] Scheduled Test 2013-12-15 00:00:00 Pneumococcal Vaccine: 0-64 Years (2 of 2 - PCV) [code = Pneumococcal Vaccine: 0-64 Years (2 of 2 - PCV)] [facility] Scheduled Test 2013-12-15 00:00:00 Pneumococcal Vaccine: 0-64 Years (2 of 2 - PCV) [code = Pneumococcal Vaccine: 0-64 Years (2 of 2 - PCV)] [facility] Scheduled Test 2013-12-15 00:00:00 Pneumococcal Vaccine: 0-64 Years (2 of 2 - PCV) [code = Pneumococcal Vaccine: 0-64 Years (2 of 2 - PCV)] [facility] Scheduled Test 2013-12-15 00:00:00 Pneumococcal Vaccine: 0-64 Years (2 of 2 - PCV) [code = Pneumococcal Vaccine: 0-64 Years (2 of 2 - PCV)] [facility] Scheduled Test 2013-12-15 00:00:00 Pneumococcal Vaccine: 0-64 Years (2 of 2 - PCV) [code = Pneumococcal Vaccine: 0-64 Years (2 of 2 - PCV)] [facility] Scheduled Test 2013-12-15 00:00:00 Pneumococcal Vaccine: 0-64 Years (2 of 2 - PCV) [code = Pneumococcal Vaccine: 0-64 Years (2 of 2 - PCV)] [facility] Scheduled Test 2013-12-15 00:00:00 Pneumococcal Vaccine: 0-64 Years (2 of 2 - PCV) [code = Pneumococcal Vaccine: 0-64 Years (2 of 2 - PCV)] [facility] Scheduled Test 2013-12-15 00:00:00 Pneumococcal Vaccine: 0-64 Years (2 of 2 - PCV) [code = Pneumococcal Vaccine: 0-64 Years (2 of 2 - PCV)] [facility] Scheduled Test 2013-12-15 00:00:00 Pneumococcal Vaccine: 0-64 Years (2 of 2 - PCV) [code = Pneumococcal Vaccine: 0-64 Years (2 of 2 - PCV)] [facility] Scheduled Test 2013-12-15 00:00:00 Pneumococcal Vaccine: 0-64 Years (2 of 2 - PCV) [code = Pneumococcal Vaccine: 0-64 Years (2 of 2 - PCV)] [facility] Scheduled Test 2013-12-15 00:00:00 Pneumococcal Vaccine: 0-64 Years (2 of 2 - PCV) [code = Pneumococcal Vaccine: 0-64 Years (2 of 2 - PCV)] [facility] Scheduled Test 2013-12-15 00:00:00 Pneumococcal Vaccine: 0-64 Years (2 of 2 - PCV) [code = Pneumococcal Vaccine: 0-64 Years (2 of 2 - PCV)] [facility] Scheduled Test 2013-12-15 00:00:00 Pneumococcal Vaccine: 0-64 Years (2 of 2 - PCV) [code = Pneumococcal Vaccine: 0-64 Years (2 of 2 - PCV)] [facility] Scheduled Test 2013-12-15 00:00:00 Pneumococcal Vaccine: 0-64 Years (2 of 2 - PCV) [code = Pneumococcal Vaccine: 0-64 Years (2 of 2 - PCV)] [facility] Scheduled Test 2013-12-15 00:00:00 Pneumococcal Vaccine: 0-64 Years (2 of 2 - PCV) [code = Pneumococcal Vaccine: 0-64 Years (2 of 2 - PCV)] [facility] Scheduled Test 2013-12-15 00:00:00 Pneumococcal Vaccine: 0-64 Years (2 of 2 - PCV) [code = Pneumococcal Vaccine: 0-64 Years (2 of 2 - PCV)] [facility] Scheduled Test 2013-12-15 00:00:00 Pneumococcal Vaccine: 0-64 Years (2 - PCV) [code = Pneumococcal Vaccine: 0-64 Years (2 - PCV)] [facility] Scheduled Test 2013-12-15 00:00:00 Pneumococcal Vaccine: 0-64 Years (2 - PCV) [code = Pneumococcal Vaccine: 0-64 Years (2 - PCV)] [facility] Scheduled Test 2013-12-15 00:00:00 Pneumococcal Vaccine: 0-64 Years (2 - PCV) [code = Pneumococcal Vaccine: 0-64 Years (2 - PCV)] [facility] Future Scheduled Test 1993-01-14 00:00:00 Screening for malignant neoplasm of cervix (procedure) [code = [id number]] [facility] Scheduled Test 1993-01-14 00:00:00 Screening for malignant neoplasm of cervix (procedure) [code = 514454073] [facility] Scheduled Test 1993-01-14 00:00:00 Screening for malignant neoplasm of cervix (procedure) [code = 925598250] [facility] Scheduled Test 1993-01-14 00:00:00 Screening for malignant neoplasm of cervix (procedure) [code = 813859627] [facility] Scheduled Test 1993-01-14 00:00:00 Screening for malignant neoplasm of cervix (procedure) [code = 485776450] [facility] Scheduled Test 1993-01-14 00:00:00 Screening for malignant neoplasm of cervix (procedure) [code = 342985352] [facility] Scheduled Test 1993-01-14 00:00:00 Screening for malignant neoplasm of cervix (procedure) [code = [id number]] [facility] Scheduled Test 1993-01-14 00:00:00 Screening for malignant neoplasm of cervix (procedure) [code = 978133882] [facility] Scheduled Test 1993-01-14 00:00:00 Screening for malignant neoplasm of cervix (procedure) [code = 556113424] [facility] Scheduled Test 1993-01-14 00:00:00 Screening for malignant neoplasm of cervix (procedure) [code = 745174497] [facility] Scheduled Test 1993-01-14 00:00:00 Screening for malignant neoplasm of cervix (procedure) [code = 631135151] [facility] Scheduled Test 1993-01-14 00:00:00 Screening for malignant neoplasm of cervix (procedure) [code = 785352482] [facility] Scheduled Test 1993-01-14 00:00:00 Screening for malignant neoplasm of cervix (procedure) [code = 252761066] [facility] Scheduled Test 1993-01-14 00:00:00 Screening for malignant neoplasm of cervix (procedure) [code = 374785799] [facility] Scheduled Test 1993-01-14 00:00:00 Screening for malignant neoplasm of cervix (procedure) [code = 652570653] [facility] Scheduled Test 1993-01-14 00:00:00 Screening for malignant neoplasm of cervix (procedure) [code = 354033583] [facility] Scheduled Test 1993-01-14 00:00:00 Screening for malignant neoplasm of cervix (procedure) [code = 770028796] [facility] Scheduled Test 1993-01-14 00:00:00 Screening for malignant neoplasm of cervix (procedure) [code = [id number]] [facility] Scheduled Test 1993-01-14 00:00:00 Screening for malignant neoplasm of cervix (procedure) [code = 760079048] [facility] Scheduled Test 1993-01-14 00:00:00 Screening for malignant neoplasm of cervix (procedure) [code = 192350870] [facility] Scheduled Test 1993-01-14 00:00:00 Screening for malignant neoplasm of cervix (procedure) [code = 475789688] [facility] Scheduled Test 1993-01-14 00:00:00 Screening for malignant neoplasm of cervix (procedure) [code = 350561177] [facility] Scheduled Test 1993-01-14 00:00:00 Screening for malignant neoplasm of cervix (procedure) [code = 737581007] [facility] Scheduled Test 1993-01-14 00:00:00 Screening for malignant neoplasm of cervix (procedure) [code = 087627692] [facility] Scheduled Test 1993-01-14 00:00:00 Screening for malignant neoplasm of cervix (procedure) [code = 893440255] [facility] Scheduled Test 1993-01-14 00:00:00 Screening for malignant neoplasm of cervix (procedure) [code = 392474544] [facility] Scheduled Test 1993-01-14 00:00:00 Screening for malignant neoplasm of cervix (procedure) [code = 706523140] [facility] Scheduled Test 1993-01-14 00:00:00 Screening for malignant neoplasm of cervix (procedure) [code = 019040149] [facility] Scheduled Test 1993-01-14 00:00:00 Screening for malignant neoplasm of cervix (procedure) [code = 150525680] [facility] Scheduled Test 1993-01-14 00:00:00 Screening for malignant neoplasm of cervix (procedure) [code = 864592310] [facility] Scheduled Test 1993-01-14 00:00:00 Screening for malignant neoplasm of cervix (procedure) [code = 326175593] [facility] Scheduled Test 1993-01-14 00:00:00 Screening for malignant neoplasm of cervix (procedure) [code = 524036123] [facility] Scheduled Test 1993-01-14 00:00:00 Screening for malignant neoplasm of cervix (procedure) [code = [id number]] [facility] Scheduled Test 1993-01-14 00:00:00 Screening for malignant neoplasm of cervix (procedure) [code = [id number]] [facility] Future Scheduled Test 1993-01-14 00:00:00 Screening for malignant neoplasm of cervix (procedure) [code = [id number]] [facility] Future Scheduled Test 1993-01-14 00:00:00 Screening for malignant neoplasm of cervix (procedure) [code = [id number]] [facility] Future Scheduled Test 1993-01-14 00:00:00 Screening for malignant neoplasm of cervix (procedure) [code = [id number]] [facility] Future Scheduled Test 1993-01-14 00:00:00 Screening for malignant neoplasm of cervix (procedure) [code = [id number]] [facility] Future Scheduled Test 1993-01-14 00:00:00 Screening for malignant neoplasm of cervix (procedure) [code = [id number]] [facility] Future Scheduled Test 1993-01-14 00:00:00 Screening for malignant neoplasm of cervix (procedure) [code = [id number]] [facility] Future Scheduled Test 1993-01-14 00:00:00 Screening for malignant neoplasm of cervix (procedure) [code = [id number]] [facility] Future Scheduled Test 1993-01-14 00:00:00 Screening for malignant neoplasm of cervix (procedure) [code = [id number]] [facility] Future Scheduled Test 1993-01-14 00:00:00 Screening for malignant neoplasm of cervix (procedure) [code = [id number]] [facility] Future Scheduled Test 1993-01-14 00:00:00 Screening for malignant neoplasm of cervix (procedure) [code = [id number]] [facility] Future Scheduled Test 1993-01-14 00:00:00 Screening for malignant neoplasm of cervix (procedure) [code = [id number]] [facility] Future Scheduled Test 1993-01-14 00:00:00 Screening for malignant neoplasm of cervix (procedure) [code = [id number]] [facility] Future Scheduled Test 1993-01-14 00:00:00 Screening for malignant neoplasm of cervix (procedure) [code = [id number]] [facility] Future Scheduled Test 1993-01-14 00:00:00 Screening for malignant neoplasm of cervix (procedure) [code = [id number]] [facility] Future Scheduled Test 1993-01-14 00:00:00 Screening for malignant neoplasm of cervix (procedure) [code = [id number]] [facility] Future Scheduled Test 1993-01-14 00:00:00 Screening for malignant neoplasm of cervix (procedure) [code = [id number]] [facility] Future Scheduled Test 1993-01-14 00:00:00 Screening for malignant neoplasm of cervix (procedure) [code = [id number]] [facility] Future Scheduled Test 1993-01-14 00:00:00 Screening for malignant neoplasm of cervix (procedure) [code = [id number]] [facility] Future Scheduled Test 1993-01-14 00:00:00 Screening for malignant neoplasm of cervix (procedure) [code = [id number]] [facility] Future Scheduled Test 1993-01-14 00:00:00 Screening for malignant neoplasm of cervix (procedure) [code = 574369091] [facility] Future Scheduled Test 1993-01-14 00:00:00 Screening for malignant neoplasm of cervix (procedure) [code = 799590503] [facility] Future Scheduled Test 1993-01-14 00:00:00 Screening for malignant neoplasm of cervix (procedure) [code = [id number]] [facility] Future Scheduled Test 1993-01-14 00:00:00 Screening for malignant neoplasm of cervix (procedure) [code = [id number]] [facility] Future Scheduled Test 1993-01-14 00:00:00 Screening for malignant neoplasm of cervix (procedure) [code = [id number]] [facility] Future Scheduled Test 1993-01-14 00:00:00 Screening for malignant neoplasm of cervix (procedure) [code = [id number]] [facility] Future Scheduled Test 1993-01-14 00:00:00 Screening for malignant neoplasm of cervix (procedure) [code = [id number]] [facility] Future Scheduled Test 1993-01-14 00:00:00 Screening for malignant neoplasm of cervix (procedure) [code = [id number]] [facility] Future Scheduled Test 1993-01-14 00:00:00 Screening for malignant neoplasm of cervix (procedure) [code = [id number]] [facility] Future Scheduled Test 1993-01-14 00:00:00 Screening for malignant neoplasm of cervix (procedure) [code = [id number]] [facility] Future Scheduled Test 1993-01-14 00:00:00 Screening for malignant neoplasm of cervix (procedure) [code = [id number]] [facility] Future Scheduled Test 1993-01-14 00:00:00 Screening for malignant neoplasm of cervix (procedure) [code = 266645720] [facility] Future Scheduled Test 1993-01-14 00:00:00 Screening for malignant neoplasm of cervix (procedure) [code = [id number]] [facility] Future Scheduled Test 1993-01-14 00:00:00 Screening for malignant neoplasm of cervix (procedure) [code = [id number]] [facility] Future Scheduled Test 1993-01-14 00:00:00 Screening for malignant neoplasm of cervix (procedure) [code = 465521594] [facility] Future Scheduled Test 1993-01-14 00:00:00 Screening for malignant neoplasm of cervix (procedure) [code = [id number]] [facility] Future Scheduled Test 1993-01-14 00:00:00 Screening for malignant neoplasm of cervix (procedure) [code = [id number]] [facility] Future Scheduled Test 1991-01-14 00:00:00 DTAP/TDAP/TD VACCINES (1 - Tdap) [code = DTAP/TDAP/TD VACCINES (1 - Tdap)] [facility] Future Scheduled Test 1991-01-14 00:00:00 DTAP/TDAP/TD VACCINES (1 - Tdap) [code = DTAP/TDAP/TD VACCINES (1 - Tdap)] [facility] Future Scheduled Test 1991-01-14 00:00:00 DTAP/TDAP/TD VACCINES (1 - Tdap) [code = DTAP/TDAP/TD VACCINES (1 - Tdap)] [facility] Future Scheduled Test 1991-01-14 00:00:00 DTAP/TDAP/TD VACCINES (1 - Tdap) [code = DTAP/TDAP/TD VACCINES (1 - Tdap)] [facility] Future Scheduled Test 1991-01-14 00:00:00 DTAP/TDAP/TD VACCINES (1 - Tdap) [code = DTAP/TDAP/TD VACCINES (1 - Tdap)] [facility] Future Scheduled Test 1991-01-14 00:00:00 DTAP/TDAP/TD VACCINES (1 - Tdap) [code = DTAP/TDAP/TD VACCINES (1 - Tdap)] [facility] Future Scheduled Test 1991-01-14 00:00:00 DTAP/TDAP/TD VACCINES (1 - Tdap) [code = DTAP/TDAP/TD VACCINES (1 - Tdap)] [facility] Future Scheduled Test 1991-01-14 00:00:00 DTAP/TDAP/TD VACCINES (1 - Tdap) [code = DTAP/TDAP/TD VACCINES (1 - Tdap)] [facility] Future Scheduled Test 1991-01-14 00:00:00 DTAP/TDAP/TD VACCINES (1 - Tdap) [code = DTAP/TDAP/TD VACCINES (1 - Tdap)] [facility] Future Scheduled Test 1991-01-14 00:00:00 DTAP/TDAP/TD VACCINES (1 - Tdap) [code = DTAP/TDAP/TD VACCINES (1 - Tdap)] [facility] Future Scheduled Test 1991-01-14 00:00:00 DTAP/TDAP/TD VACCINES (1 - Tdap) [code = DTAP/TDAP/TD VACCINES (1 - Tdap)] [facility] Future Scheduled Test 1991-01-14 00:00:00 DTAP/TDAP/TD VACCINES (1 - Tdap) [code = DTAP/TDAP/TD VACCINES (1 - Tdap)] [facility] Future Scheduled Test 1991-01-14 00:00:00 DTAP/TDAP/TD VACCINES (1 - Tdap) [code = DTAP/TDAP/TD VACCINES (1 - Tdap)] [facility] Future Scheduled Test 1991-01-14 00:00:00 DTAP/TDAP/TD VACCINES (1 - Tdap) [code = DTAP/TDAP/TD VACCINES (1 - Tdap)] [facility] Future Scheduled Test 1991-01-14 00:00:00 DTAP/TDAP/TD VACCINES (1 - Tdap) [code = DTAP/TDAP/TD VACCINES (1 - Tdap)] [facility] Future Scheduled Test 1991-01-14 00:00:00 DTAP/TDAP/TD VACCINES (1 - Tdap) [code = DTAP/TDAP/TD VACCINES (1 - Tdap)] [facility] Future Scheduled Test 1991-01-14 00:00:00 DTAP/TDAP/TD VACCINES (1 - Tdap) [code = DTAP/TDAP/TD VACCINES (1 - Tdap)] [facility] Future Scheduled Test 1991-01-14 00:00:00 DTAP/TDAP/TD VACCINES (1 - Tdap) [code = DTAP/TDAP/TD VACCINES (1 - Tdap)] [facility] Future Scheduled Test 1991-01-14 00:00:00 DTAP/TDAP/TD VACCINES (1 - Tdap) [code = DTAP/TDAP/TD VACCINES (1 - Tdap)] [facility] Future Scheduled Test 1991-01-14 00:00:00 DTAP/TDAP/TD VACCINES (1 - Tdap) [code = DTAP/TDAP/TD VACCINES (1 - Tdap)] [facility] Future Scheduled Test 1991-01-14 00:00:00 DTAP/TDAP/TD VACCINES (1 - Tdap) [code = DTAP/TDAP/TD VACCINES (1 - Tdap)] [facility] Future Scheduled Test 1991-01-14 00:00:00 DTAP/TDAP/TD VACCINES (1 - Tdap) [code = DTAP/TDAP/TD VACCINES (1 - Tdap)] [facility] Future Scheduled Test 1991-01-14 00:00:00 DTAP/TDAP/TD VACCINES (1 - Tdap) [code = DTAP/TDAP/TD VACCINES (1 - Tdap)] [facility] Future Scheduled Test 1991-01-14 00:00:00 DTAP/TDAP/TD VACCINES (1 - Tdap) [code = DTAP/TDAP/TD VACCINES (1 - Tdap)] [facility] Future Scheduled Test 1991-01-14 00:00:00 DTAP/TDAP/TD VACCINES (1 - Tdap) [code = DTAP/TDAP/TD VACCINES (1 - Tdap)] [facility] Future Scheduled Test 1991-01-14 00:00:00 DTAP/TDAP/TD VACCINES (1 - Tdap) [code = DTAP/TDAP/TD VACCINES (1 - Tdap)] [facility] Future Scheduled Test 1991-01-14 00:00:00 DTAP/TDAP/TD VACCINES (1 - Tdap) [code = DTAP/TDAP/TD VACCINES (1 - Tdap)] [facility] Future Scheduled Test 1991-01-14 00:00:00 DTAP/TDAP/TD VACCINES (1 - Tdap) [code = DTAP/TDAP/TD VACCINES (1 - Tdap)] [facility] Future Scheduled Test 1991-01-14 00:00:00 DTAP/TDAP/TD VACCINES (1 - Tdap) [code = DTAP/TDAP/TD VACCINES (1 - Tdap)] [facility] Future Scheduled Test 1991-01-14 00:00:00 DTAP/TDAP/TD VACCINES (1 - Tdap) [code = DTAP/TDAP/TD VACCINES (1 - Tdap)] [facility] Future Scheduled Test 1991-01-14 00:00:00 DTAP/TDAP/TD VACCINES (1 - Tdap) [code = DTAP/TDAP/TD VACCINES (1 - Tdap)] [facility] Future Scheduled Test 1991-01-14 00:00:00 DTAP/TDAP/TD VACCINES (1 - Tdap) [code = DTAP/TDAP/TD VACCINES (1 - Tdap)] [facility] Future Scheduled Test 1991-01-14 00:00:00 DTAP/TDAP/TD VACCINES (1 - Tdap) [code = DTAP/TDAP/TD VACCINES (1 - Tdap)] [facility] Future Scheduled Test 1991-01-14 00:00:00 DTAP/TDAP/TD VACCINES (1 - Tdap) [code = DTAP/TDAP/TD VACCINES (1 - Tdap)] [facility] Future Scheduled Test 1991-01-14 00:00:00 DTAP/TDAP/TD VACCINES (1 - Tdap) [code = DTAP/TDAP/TD VACCINES (1 - Tdap)] [facility] Future Scheduled Test 1991-01-14 00:00:00 DTAP/TDAP/TD VACCINES (1 - Tdap) [code = DTAP/TDAP/TD VACCINES (1 - Tdap)] [facility] Future Scheduled Test 1991-01-14 00:00:00 DTAP/TDAP/TD VACCINES (1 - Tdap) [code = DTAP/TDAP/TD VACCINES (1 - Tdap)] [facility] Future Scheduled Test 1991-01-14 00:00:00 DTAP/TDAP/TD VACCINES (1 - Tdap) [code = DTAP/TDAP/TD VACCINES (1 - Tdap)] [facility] Future Scheduled Test 1991-01-14 00:00:00 DTAP/TDAP/TD VACCINES (1 - Tdap) [code = DTAP/TDAP/TD VACCINES (1 - Tdap)] [facility] Future Scheduled Test 1991-01-14 00:00:00 DTAP/TDAP/TD VACCINES (1 - Tdap) [code = DTAP/TDAP/TD VACCINES (1 - Tdap)] [facility] Future Scheduled Test 1991-01-14 00:00:00 DTAP/TDAP/TD VACCINES (1 - Tdap) [code = DTAP/TDAP/TD VACCINES (1 - Tdap)] [facility] Future Scheduled Test 1991-01-14 00:00:00 DTAP/TDAP/TD VACCINES (1 - Tdap) [code = DTAP/TDAP/TD VACCINES (1 - Tdap)] [facility] Future Scheduled Test 1991-01-14 00:00:00 DTAP/TDAP/TD VACCINES (1 - Tdap) [code = DTAP/TDAP/TD VACCINES (1 - Tdap)] [facility] Future Scheduled Test 1991-01-14 00:00:00 DTAP/TDAP/TD VACCINES (1 - Tdap) [code = DTAP/TDAP/TD VACCINES (1 - Tdap)] [facility] Future Scheduled Test 1991-01-14 00:00:00 DTAP/TDAP/TD VACCINES (1 - Tdap) [code = DTAP/TDAP/TD VACCINES (1 - Tdap)] [facility] Future Scheduled Test 1991-01-14 00:00:00 DTAP/TDAP/TD VACCINES (1 - Tdap) [code = DTAP/TDAP/TD VACCINES (1 - Tdap)] [facility] Future Scheduled Test 1991-01-14 00:00:00 DTAP/TDAP/TD VACCINES (1 - Tdap) [code = DTAP/TDAP/TD VACCINES (1 - Tdap)] [facility] Future Scheduled Test 1991-01-14 00:00:00 DTAP/TDAP/TD VACCINES (1 - Tdap) [code = DTAP/TDAP/TD VACCINES (1 - Tdap)] [facility] Future Scheduled Test 1991-01-14 00:00:00 DTAP/TDAP/TD VACCINES (1 - Tdap) [code = DTAP/TDAP/TD VACCINES (1 - Tdap)] [facility] Future Scheduled Test 1991-01-14 00:00:00 DTAP/TDAP/TD VACCINES (1 - Tdap) [code = DTAP/TDAP/TD VACCINES (1 - Tdap)] [facility] Future Scheduled Test 1991-01-14 00:00:00 DTAP/TDAP/TD VACCINES (1 - Tdap) [code = DTAP/TDAP/TD VACCINES (1 - Tdap)] [facility] Future Scheduled Test 1991-01-14 00:00:00 DTAP/TDAP/TD VACCINES (1 - Tdap) [code = DTAP/TDAP/TD VACCINES (1 - Tdap)] [facility] Future Scheduled Test 1991-01-14 00:00:00 DTAP/TDAP/TD VACCINES (1 - Tdap) [code = DTAP/TDAP/TD VACCINES (1 - Tdap)] [facility] Future Scheduled Test 1991-01-14 00:00:00 DTAP/TDAP/TD VACCINES (1 - Tdap) [code = DTAP/TDAP/TD VACCINES (1 - Tdap)] [facility] Future Scheduled Test 1991-01-14 00:00:00 DTAP/TDAP/TD VACCINES (1 - Tdap) [code = DTAP/TDAP/TD VACCINES (1 - Tdap)] [facility] Future Scheduled Test 1991-01-14 00:00:00 DTAP/TDAP/TD VACCINES (1 - Tdap) [code = DTAP/TDAP/TD VACCINES (1 - Tdap)] [facility] Future Scheduled Test 1991-01-14 00:00:00 DTAP/TDAP/TD VACCINES (1 - Tdap) [code = DTAP/TDAP/TD VACCINES (1 - Tdap)] [facility] Future Scheduled Test 1991-01-14 00:00:00 DTAP/TDAP/TD VACCINES (1 - Tdap) [code = DTAP/TDAP/TD VACCINES (1 - Tdap)] [facility] Future Scheduled Test 1991-01-14 00:00:00 DTAP/TDAP/TD VACCINES (1 - Tdap) [code = DTAP/TDAP/TD VACCINES (1 - Tdap)] [facility] Future Scheduled Test 1991-01-14 00:00:00 DTAP/TDAP/TD VACCINES (1 - Tdap) [code = DTAP/TDAP/TD VACCINES (1 - Tdap)] [facility] Future Scheduled Test 1991-01-14 00:00:00 DTAP/TDAP/TD VACCINES (1 - Tdap) [code = DTAP/TDAP/TD VACCINES (1 - Tdap)] [facility] Future Scheduled Test 1991-01-14 00:00:00 DTAP/TDAP/TD VACCINES (1 - Tdap) [code = DTAP/TDAP/TD VACCINES (1 - Tdap)] [facility] Future Scheduled Test 1991-01-14 00:00:00 DTAP/TDAP/TD VACCINES (1 - Tdap) [code = DTAP/TDAP/TD VACCINES (1 - Tdap)] [facility] Future Scheduled Test 1991-01-14 00:00:00 DTAP/TDAP/TD VACCINES (1 - Tdap) [code = DTAP/TDAP/TD VACCINES (1 - Tdap)] [facility] Future Scheduled Test 1991-01-14 00:00:00 DTAP/TDAP/TD VACCINES (1 - Tdap) [code = DTAP/TDAP/TD VACCINES (1 - Tdap)] [facility] Future Scheduled Test 1991-01-14 00:00:00 DTAP/TDAP/TD VACCINES (1 - Tdap) [code = DTAP/TDAP/TD VACCINES (1 - Tdap)] [facility] Future Scheduled Test 1991-01-14 00:00:00 DTAP/TDAP/TD VACCINES (1 - Tdap) [code = DTAP/TDAP/TD VACCINES (1 - Tdap)] [facility] Future Scheduled Test 1991-01-14 00:00:00 DTAP/TDAP/TD VACCINES (1 - Tdap) [code = DTAP/TDAP/TD VACCINES (1 - Tdap)] [facility] Future Scheduled Test 1991-01-14 00:00:00 DTAP/TDAP/TD VACCINES (1 - Tdap) [code = DTAP/TDAP/TD VACCINES (1 - Tdap)] [facility] Future Scheduled Test 1991-01-14 00:00:00 DTAP/TDAP/TD VACCINES (1 - Tdap) [code = DTAP/TDAP/TD VACCINES (1 - Tdap)] [facility] Future Scheduled Test 1990-01-14 00:00:00 HEPATITIS C SCREENING [code = HEPATITIS C SCREENING] [facility] Future Scheduled Test 1990-01-14 00:00:00 HEPATITIS C SCREENING [code = HEPATITIS C SCREENING] [facility] Future Scheduled Test 1990-01-14 00:00:00 HEPATITIS C SCREENING [code = HEPATITIS C SCREENING] [facility] Future Scheduled Test 1990-01-14 00:00:00 HEPATITIS C SCREENING [code = HEPATITIS C SCREENING] [facility] Future Scheduled Test 1990-01-14 00:00:00 HEPATITIS C SCREENING [code = HEPATITIS C SCREENING] [facility] Future Scheduled Test 1990-01-14 00:00:00 HEPATITIS C SCREENING [code = HEPATITIS C SCREENING] [facility] Future Scheduled Test 1990-01-14 00:00:00 HEPATITIS C SCREENING [code = HEPATITIS C SCREENING] [facility] Future Scheduled Test 1990-01-14 00:00:00 HEPATITIS C SCREENING [code = HEPATITIS C SCREENING] [facility] Future Scheduled Test 1990-01-14 00:00:00 HEPATITIS C SCREENING [code = HEPATITIS C SCREENING] [facility] Future Scheduled Test 1990-01-14 00:00:00 HEPATITIS C SCREENING [code = HEPATITIS C SCREENING] [facility] Future Scheduled Test 1990-01-14 00:00:00 HEPATITIS C SCREENING [code = HEPATITIS C SCREENING] [facility] Future Scheduled Test 1990-01-14 00:00:00 HEPATITIS C SCREENING [code = HEPATITIS C SCREENING] [facility] Future Scheduled Test 1990-01-14 00:00:00 HEPATITIS C SCREENING [code = HEPATITIS C SCREENING] [facility] Future Scheduled Test 1990-01-14 00:00:00 HEPATITIS C SCREENING [code = HEPATITIS C SCREENING] [facility] Future Scheduled Test 1990-01-14 00:00:00 HEPATITIS C SCREENING [code = HEPATITIS C SCREENING] [facility] Future Scheduled Test 1990-01-14 00:00:00 HEPATITIS C SCREENING [code = HEPATITIS C SCREENING] [facility] Future Scheduled Test 1990-01-14 00:00:00 HEPATITIS C SCREENING [code = HEPATITIS C SCREENING] [facility] Future Scheduled Test 1990-01-14 00:00:00 HEPATITIS C SCREENING [code = HEPATITIS C SCREENING] [facility] Future Scheduled Test 1990-01-14 00:00:00 HEPATITIS C SCREENING [code = HEPATITIS C SCREENING] [facility] Future Scheduled Test 1990-01-14 00:00:00 HEPATITIS C SCREENING [code = HEPATITIS C SCREENING] [facility] Future Scheduled Test 1990-01-14 00:00:00 HEPATITIS C SCREENING [code = HEPATITIS C SCREENING] [facility] Future Scheduled Test 1990-01-14 00:00:00 HEPATITIS C SCREENING [code = HEPATITIS C SCREENING] [facility] Future Scheduled Test 1990-01-14 00:00:00 HEPATITIS C SCREENING [code = HEPATITIS C SCREENING] [facility] Future Scheduled Test 1990-01-14 00:00:00 HEPATITIS C SCREENING [code = HEPATITIS C SCREENING] [facility] Future Scheduled Test 1990-01-14 00:00:00 HEPATITIS C SCREENING [code = HEPATITIS C SCREENING] [facility] Future Scheduled Test 1990-01-14 00:00:00 HEPATITIS C SCREENING [code = HEPATITIS C SCREENING] [facility] Future Scheduled Test 1990-01-14 00:00:00 HEPATITIS C SCREENING [code = HEPATITIS C SCREENING] [facility] Future Scheduled Test 1990-01-14 00:00:00 HEPATITIS C SCREENING [code = HEPATITIS C SCREENING] [facility] Future Scheduled Test 1990-01-14 00:00:00 HEPATITIS C SCREENING [code = HEPATITIS C SCREENING] [facility] Future Scheduled Test 1990-01-14 00:00:00 HEPATITIS C SCREENING [code = HEPATITIS C SCREENING] [facility] Future Scheduled Test 1990-01-14 00:00:00 HEPATITIS C SCREENING [code = HEPATITIS C SCREENING] [facility] Future Scheduled Test 1990-01-14 00:00:00 HEPATITIS C SCREENING [code = HEPATITIS C SCREENING] [facility] Future Scheduled Test 1990-01-14 00:00:00 HEPATITIS C SCREENING [code = HEPATITIS C SCREENING] [facility] Future Scheduled Test 1990-01-14 00:00:00 HEPATITIS C SCREENING [code = HEPATITIS C SCREENING] [facility] Future Scheduled Test 1990-01-14 00:00:00 HEPATITIS C SCREENING [code = HEPATITIS C SCREENING] [facility] Future Scheduled Test 1990-01-14 00:00:00 HEPATITIS C SCREENING [code = HEPATITIS C SCREENING] [facility] Future Scheduled Test 1990-01-14 00:00:00 HEPATITIS C SCREENING [code = HEPATITIS C SCREENING] [facility] Future Scheduled Test 1990-01-14 00:00:00 HEPATITIS C SCREENING [code = HEPATITIS C SCREENING] [facility] Future Scheduled Test 1990-01-14 00:00:00 HEPATITIS C SCREENING [code = HEPATITIS C SCREENING] [facility] Future Scheduled Test 1990-01-14 00:00:00 HEPATITIS C SCREENING [code = HEPATITIS C SCREENING] [facility] Future Scheduled Test 1990-01-14 00:00:00 HEPATITIS C SCREENING [code = HEPATITIS C SCREENING] [facility] Future Scheduled Test 1990-01-14 00:00:00 HEPATITIS C SCREENING [code = HEPATITIS C SCREENING] [facility] Future Scheduled Test 1990-01-14 00:00:00 HEPATITIS C SCREENING [code = HEPATITIS C SCREENING] [facility] Future Scheduled Test 1990-01-14 00:00:00 HEPATITIS C SCREENING [code = HEPATITIS C SCREENING] [facility] Future Scheduled Test 1990-01-14 00:00:00 HEPATITIS C SCREENING [code = HEPATITIS C SCREENING] [facility] Future Scheduled Test 1990-01-14 00:00:00 HEPATITIS C SCREENING [code = HEPATITIS C SCREENING] [facility] Future Scheduled Test 1990-01-14 00:00:00 HEPATITIS C SCREENING [code = HEPATITIS C SCREENING] [facility] Future Scheduled Test 1990-01-14 00:00:00 HEPATITIS C SCREENING [code = HEPATITIS C SCREENING] [facility] Future Scheduled Test 1990-01-14 00:00:00 HEPATITIS C SCREENING [code = HEPATITIS C SCREENING] [facility] Future Scheduled Test 1990-01-14 00:00:00 HEPATITIS C SCREENING [code = HEPATITIS C SCREENING] [facility] Future Scheduled Test 1990-01-14 00:00:00 HEPATITIS C SCREENING [code = HEPATITIS C SCREENING] [facility] Future Scheduled Test 1990-01-14 00:00:00 HEPATITIS C SCREENING [code = HEPATITIS C SCREENING] [facility] Future Scheduled Test 1990-01-14 00:00:00 HEPATITIS C SCREENING [code = HEPATITIS C SCREENING] [facility] Future Scheduled Test 1990-01-14 00:00:00 HEPATITIS C SCREENING [code = HEPATITIS C SCREENING] [facility] Future Scheduled Test 1990-01-14 00:00:00 HEPATITIS C SCREENING [code = HEPATITIS C SCREENING] [facility] Future Scheduled Test 1990-01-14 00:00:00 HEPATITIS C SCREENING [code = HEPATITIS C SCREENING] [facility] Future Scheduled Test 1990-01-14 00:00:00 HEPATITIS C SCREENING [code = HEPATITIS C SCREENING] [facility] Future Scheduled Test 1990-01-14 00:00:00 HEPATITIS C SCREENING [code = HEPATITIS C SCREENING] [facility] Future Scheduled Test 1990-01-14 00:00:00 HEPATITIS C SCREENING [code = HEPATITIS C SCREENING] [facility] Future Scheduled Test 1990-01-14 00:00:00 HEPATITIS C SCREENING [code = HEPATITIS C SCREENING] [facility] Future Scheduled Test 1990-01-14 00:00:00 HEPATITIS C SCREENING [code = HEPATITIS C SCREENING] [facility] Future Scheduled Test 1990-01-14 00:00:00 HEPATITIS C SCREENING [code = HEPATITIS C SCREENING] [facility] Future Scheduled Test 1990-01-14 00:00:00 HEPATITIS C SCREENING [code = HEPATITIS C SCREENING] [facility] Future Scheduled Test 1990-01-14 00:00:00 HEPATITIS C SCREENING [code = HEPATITIS C SCREENING] [facility] Future Scheduled Test 1990-01-14 00:00:00 HEPATITIS C SCREENING [code = HEPATITIS C SCREENING] [facility] Future Scheduled Test 1990-01-14 00:00:00 HEPATITIS C SCREENING [code = HEPATITIS C SCREENING] [facility] Future Scheduled Test 1990-01-14 00:00:00 HEPATITIS C SCREENING [code = HEPATITIS C SCREENING] [facility] Future Scheduled Test 1990-01-14 00:00:00 HEPATITIS C SCREENING [code = HEPATITIS C SCREENING] [facility] Future Scheduled Test 1990-01-14 00:00:00 HEPATITIS C SCREENING [code = HEPATITIS C SCREENING] [facility] Future Scheduled Test 1990-01-14 00:00:00 HEPATITIS C SCREENING [code = HEPATITIS C SCREENING] [facility] Future Scheduled Test 1987-01-14 00:00:00 Human immunodeficiency virus screening (procedure) [code = 176956346] [facility] Future Scheduled Test 1987-01-14 00:00:00 Human immunodeficiency virus screening (procedure) [code = 814601094] [facility] Future Scheduled Test 1984 00:00:00 Tobacco Cessation Counseling and Screening (12+) [code = Tobacco Cessation Counseling and Screening (12+)] [facility] Future Scheduled Test 1984 00:00:00 Tobacco Cessation Counseling and Screening (12+) [code = Tobacco Cessation Counseling and Screening (12+)] [facility] Future Scheduled Test 1984 00:00:00 Tobacco Cessation Counseling and Screening (12+) [code = Tobacco Cessation Counseling and Screening (12+)] [facility] Future Scheduled Test 1984 00:00:00 Tobacco Cessation Counseling and Screening (12+) [code = Tobacco Cessation Counseling and Screening (12+)] [facility] Future Scheduled Test 1984 00:00:00 Tobacco Cessation Counseling and Screening (12+) [code = Tobacco Cessation Counseling and Screening (12+)] [facility] Future Scheduled Test 1984 00:00:00 Tobacco Cessation Counseling and Screening (12+) [code = Tobacco Cessation Counseling and Screening (12+)] [facility] Future Scheduled Test 1984 00:00:00 Tobacco Cessation Counseling and Screening (12+) [code = Tobacco Cessation Counseling and Screening (12+)] [facility] Future Scheduled Test 1984 00:00:00 Tobacco Cessation Counseling and Screening (12+) [code = Tobacco Cessation Counseling and Screening (12+)] [facility] Future Scheduled Test 1984 00:00:00 Tobacco Cessation Counseling and Screening (12+) [code = Tobacco Cessation Counseling and Screening (12+)] [facility] Future Scheduled Test 1984 00:00:00 Tobacco Cessation Counseling and Screening (12+) [code = Tobacco Cessation Counseling and Screening (12+)] [facility] Scheduled Test 1984 00:00:00 Tobacco Cessation Counseling and Screening (12+) [code = Tobacco Cessation Counseling and Screening (12+)] [facility] Scheduled Test 1984 00:00:00 Tobacco Cessation Counseling and Screening (12+) [code = Tobacco Cessation Counseling and Screening (12+)] [facility] Scheduled Test 1984 00:00:00 Tobacco Cessation Counseling and Screening (12+) [code = Tobacco Cessation Counseling and Screening (12+)] [facility] Scheduled Test 1984 00:00:00 Tobacco Cessation Counseling and Screening (12+) [code = Tobacco Cessation Counseling and Screening (12+)] [facility] Future Scheduled Test 1984 00:00:00 Tobacco Cessation Counseling and Screening (12+) [code = Tobacco Cessation Counseling and Screening (12+)] [facility] Future Scheduled Test 1984 00:00:00 Tobacco Cessation Counseling and Screening (12+) [code = Tobacco Cessation Counseling and Screening (12+)] [facility] Future Scheduled Test 1984 00:00:00 Tobacco Cessation Counseling and Screening (12+) [code = Tobacco Cessation Counseling and Screening (12+)] [facility] Future Scheduled Test 1984 00:00:00 Tobacco Cessation Counseling and Screening (12+) [code = Tobacco Cessation Counseling and Screening (12+)] [facility] Future Scheduled Test 1984 00:00:00 Tobacco Cessation Counseling and Screening (12+) [code = Tobacco Cessation Counseling and Screening (12+)] [facility] Future Scheduled Test 1984 00:00:00 Tobacco Cessation Counseling and Screening (12+) [code = Tobacco Cessation Counseling and Screening (12+)] [facility] Future Scheduled Test 1984 00:00:00 Tobacco Cessation Counseling and Screening (12+) [code = Tobacco Cessation Counseling and Screening (12+)] [facility] Future Scheduled Test 1984 00:00:00 Tobacco Cessation Counseling and Screening (12+) [code = Tobacco Cessation Counseling and Screening (12+)] [facility] Future Scheduled Test 1984 00:00:00 Tobacco Cessation Counseling and Screening (12+) [code = Tobacco Cessation Counseling and Screening (12+)] [facility] Future Scheduled Test 1972 00:00:00 Screening for malignant neoplasm of breast (procedure) [code = [id number]] [facility] Future Scheduled Test 1972 00:00:00 CT Colonography (combo) [code = CT Colonography (combo)] [facility] Future Scheduled Test 1972 00:00:00 Screening for malignant neoplasm of colon (procedure) [code = 303398801] [facility] Future Scheduled Test 1972 00:00:00 Screening for malignant neoplasm of colon (procedure) [code = 870167288] [facility] Future Scheduled Test 1972 00:00:00 Screening for malignant neoplasm of colon (procedure) [code = 567439794] [facility] Future Scheduled Test 1972 00:00:00 Screening for malignant neoplasm of colon (procedure) [code = 471562828] [facility] Future Scheduled Test 1972 00:00:00 Sigmoidoscopy [code = Sigmoidoscopy] [facility] Future Scheduled Test 1972 00:00:00 Screening for malignant neoplasm of breast (procedure) [code = 052830781] [facility] Future Scheduled Test 1972 00:00:00 CT Colonography (combo) [code = CT Colonography (combo)] [facility] Future Scheduled Test 1972 00:00:00 Screening for malignant neoplasm of colon (procedure) [code = 147076314] [facility] Future Scheduled Test 1972 00:00:00 Screening for malignant neoplasm of colon (procedure) [code = 572545061] [facility] Future Scheduled Test 1972 00:00:00 Screening for malignant neoplasm of colon (procedure) [code = 611416025] [facility] Future Scheduled Test 1972 00:00:00 Screening for malignant neoplasm of colon (procedure) [code = 722799263] [facility] Future Scheduled Test 1972 00:00:00 Sigmoidoscopy [code = Sigmoidoscopy] [facility] Future Scheduled Test 1972 00:00:00 Screening for malignant neoplasm of breast (procedure) [code = 943109268] [facility] Future Scheduled Test 1972 00:00:00 CT Colonography (combo) [code = CT Colonography (combo)] [facility] Future Scheduled Test 1972 00:00:00 Screening for malignant neoplasm of colon (procedure) [code = 221419257] [facility] Future Scheduled Test 1972 00:00:00 Screening for malignant neoplasm of colon (procedure) [code = 706564582] [facility] Future Scheduled Test 1972 00:00:00 Screening for malignant neoplasm of colon (procedure) [code = 728919042] [facility] Future Scheduled Test 1972 00:00:00 Screening for malignant neoplasm of colon (procedure) [code = 799611969] [facility] Future Scheduled Test 1972 00:00:00 Sigmoidoscopy [code = Sigmoidoscopy] [facility] Future Scheduled Test 1972 00:00:00 Screening for malignant neoplasm of breast (procedure) [code = 338161426] [facility] Future Scheduled Test 1972 00:00:00 CT Colonography (combo) [code = CT Colonography (combo)] [facility] Future Scheduled Test 1972 00:00:00 Screening for malignant neoplasm of colon (procedure) [code = 267605429] [facility] Future Scheduled Test 1972 00:00:00 Screening for malignant neoplasm of colon (procedure) [code = 260982576] [facility] Future Scheduled Test 1972 00:00:00 Screening for malignant neoplasm of colon (procedure) [code = 651434326] [facility] Future Scheduled Test 1972 00:00:00 Screening for malignant neoplasm of colon (procedure) [code = 180115516] [facility] Future Scheduled Test 1972 00:00:00 Sigmoidoscopy [code = Sigmoidoscopy] [facility] Future Scheduled Test 1972 00:00:00 Screening for malignant neoplasm of breast (procedure) [code = 051150258] [facility] Future Scheduled Test 1972 00:00:00 CT Colonography (combo) [code = CT Colonography (combo)] [facility] Future Scheduled Test 1972 00:00:00 Screening for malignant neoplasm of colon (procedure) [code = 919206601] [facility] Future Scheduled Test 1972 00:00:00 Screening for malignant neoplasm of colon (procedure) [code = 862736819] [facility] Future Scheduled Test 1972 00:00:00 Screening for malignant neoplasm of colon (procedure) [code = 750431950] [facility] Future Scheduled Test 1972 00:00:00 Screening for malignant neoplasm of colon (procedure) [code = 969509546] [facility] Future Scheduled Test 1972 00:00:00 Sigmoidoscopy [code = Sigmoidoscopy] [facility] Future Scheduled Test 1972 00:00:00 Screening for malignant neoplasm of breast (procedure) [code = 693389680] [facility] Future Scheduled Test 1972 00:00:00 CT Colonography (combo) [code = CT Colonography (combo)] [facility] Future Scheduled Test 1972 00:00:00 Screening for malignant neoplasm of colon (procedure) [code = 813751879] [facility] Future Scheduled Test 1972 00:00:00 Screening for malignant neoplasm of colon (procedure) [code = 875363430] [facility] Future Scheduled Test 1972 00:00:00 Screening for malignant neoplasm of colon (procedure) [code = 346055055] [facility] Future Scheduled Test 1972 00:00:00 Screening for malignant neoplasm of colon (procedure) [code = 083521346] [facility] Future Scheduled Test 1972 00:00:00 Sigmoidoscopy [code = Sigmoidoscopy] [facility] Future Scheduled Test 1972 00:00:00 Screening for malignant neoplasm of breast (procedure) [code = 115891725] [facility] Future Scheduled Test 1972 00:00:00 CT Colonography (combo) [code = CT Colonography (combo)] [facility] Future Scheduled Test 1972 00:00:00 Screening for malignant neoplasm of colon (procedure) [code = 616520292] [facility] Future Scheduled Test 1972 00:00:00 Screening for malignant neoplasm of colon (procedure) [code = 841615268] [facility] Future Scheduled Test 1972 00:00:00 Screening for malignant neoplasm of colon (procedure) [code = 436749997] [facility] Future Scheduled Test 1972 00:00:00 Screening for malignant neoplasm of colon (procedure) [code = 488522636] [facility] Future Scheduled Test 1972 00:00:00 Sigmoidoscopy [code = Sigmoidoscopy] [facility] Future Scheduled Test 1972 00:00:00 Screening for malignant neoplasm of breast (procedure) [code = 979949301] [facility] Future Scheduled Test 1972 00:00:00 CT Colonography (combo) [code = CT Colonography (combo)] [facility] Future Scheduled Test 1972 00:00:00 Screening for malignant neoplasm of colon (procedure) [code = 203706795] [facility] Future Scheduled Test 1972 00:00:00 Screening for malignant neoplasm of colon (procedure) [code = 463637384] [facility] Future Scheduled Test 1972 00:00:00 Screening for malignant neoplasm of colon (procedure) [code = 533151323] [facility] Future Scheduled Test 1972 00:00:00 Screening for malignant neoplasm of colon (procedure) [code = 084514708] [facility] Future Scheduled Test 1972 00:00:00 Sigmoidoscopy [code = Sigmoidoscopy] [facility] Future Scheduled Test 1972 00:00:00 Screening for malignant neoplasm of breast (procedure) [code = 504040873] [facility] Future Scheduled Test 1972 00:00:00 CT Colonography (combo) [code = CT Colonography (combo)] [facility] Future Scheduled Test 1972 00:00:00 Screening for malignant neoplasm of colon (procedure) [code = 626421632] [facility] Future Scheduled Test 1972 00:00:00 Screening for malignant neoplasm of colon (procedure) [code = 636442457] [facility] Future Scheduled Test 1972 00:00:00 Screening for malignant neoplasm of colon (procedure) [code = 309130353] [facility] Future Scheduled Test 1972 00:00:00 Screening for malignant neoplasm of colon (procedure) [code = 363629764] [facility] Future Scheduled Test 1972 00:00:00 Sigmoidoscopy [code = Sigmoidoscopy] [facility] Future Scheduled Test 1972 00:00:00 Screening for malignant neoplasm of breast (procedure) [code = 472082654] [facility] Future Scheduled Test 1972 00:00:00 CT Colonography (combo) [code = CT Colonography (combo)] [facility] Future Scheduled Test 1972 00:00:00 Screening for malignant neoplasm of colon (procedure) [code = 800109501] [facility] Future Scheduled Test 1972 00:00:00 Screening for malignant neoplasm of colon (procedure) [code = 023032084] [facility] Future Scheduled Test 1972 00:00:00 Screening for malignant neoplasm of colon (procedure) [code = 015558073] [facility] Future Scheduled Test 1972 00:00:00 Screening for malignant neoplasm of colon (procedure) [code = 967883777] [facility] Future Scheduled Test 1972 00:00:00 Sigmoidoscopy [code = Sigmoidoscopy] [facility] Future Scheduled Test 1972 00:00:00 Screening for malignant neoplasm of breast (procedure) [code = 921372634] [facility] Future Scheduled Test 1972 00:00:00 CT Colonography (combo) [code = CT Colonography (combo)] [facility] Future Scheduled Test 1972 00:00:00 Screening for malignant neoplasm of colon (procedure) [code = 686969859] [facility] Future Scheduled Test 1972 00:00:00 Screening for malignant neoplasm of colon (procedure) [code = 996450622] [facility] Future Scheduled Test 1972 00:00:00 Screening for malignant neoplasm of colon (procedure) [code = 548629743] [facility] Future Scheduled Test 1972 00:00:00 Screening for malignant neoplasm of colon (procedure) [code = 997930597] [facility] Future Scheduled Test 1972 00:00:00 Sigmoidoscopy [code = Sigmoidoscopy] [facility] Future Scheduled Test 1972 00:00:00 Screening for malignant neoplasm of breast (procedure) [code = 073266713] [facility] Future Scheduled Test 1972 00:00:00 CT Colonography (combo) [code = CT Colonography (combo)] [facility] Future Scheduled Test 1972 00:00:00 Screening for malignant neoplasm of colon (procedure) [code = 887063734] [facility] Future Scheduled Test 1972 00:00:00 Screening for malignant neoplasm of colon (procedure) [code = 988128944] [facility] Future Scheduled Test 1972 00:00:00 Screening for malignant neoplasm of colon (procedure) [code = 569429234] [facility] Future Scheduled Test 1972 00:00:00 Screening for malignant neoplasm of colon (procedure) [code = 444338883] [facility] Future Scheduled Test 1972 00:00:00 Sigmoidoscopy [code = Sigmoidoscopy] [facility] Future Scheduled Test 1972 00:00:00 Screening for malignant neoplasm of breast (procedure) [code = 453797194] [facility] Future Scheduled Test 1972 00:00:00 CT Colonography (combo) [code = CT Colonography (combo)] [facility] Future Scheduled Test 1972 00:00:00 Screening for malignant neoplasm of colon (procedure) [code = 230984488] [facility] Future Scheduled Test 1972 00:00:00 Screening for malignant neoplasm of colon (procedure) [code = 851313608] [facility] Future Scheduled Test 1972 00:00:00 Screening for malignant neoplasm of colon (procedure) [code = 216300813] [facility] Future Scheduled Test 1972 00:00:00 Screening for malignant neoplasm of colon (procedure) [code = 257319033] [facility] Future Scheduled Test 1972 00:00:00 Sigmoidoscopy [code = Sigmoidoscopy] [facility] Future Scheduled Test 1972 00:00:00 Screening for malignant neoplasm of breast (procedure) [code = 227435196] [facility] Future Scheduled Test 1972 00:00:00 CT Colonography (combo) [code = CT Colonography (combo)] [facility] Future Scheduled Test 1972 00:00:00 Screening for malignant neoplasm of colon (procedure) [code = 421002243] [facility] Future Scheduled Test 1972 00:00:00 Screening for malignant neoplasm of colon (procedure) [code = 844375163] [facility] Future Scheduled Test 1972 00:00:00 Screening for malignant neoplasm of colon (procedure) [code = 876600845] [facility] Future Scheduled Test 1972 00:00:00 Screening for malignant neoplasm of colon (procedure) [code = 961836253] [facility] Future Scheduled Test 1972 00:00:00 Sigmoidoscopy [code = Sigmoidoscopy] [facility] Future Scheduled Test 1972 00:00:00 Screening for malignant neoplasm of breast (procedure) [code = 345010216] [facility] Future Scheduled Test 1972 00:00:00 CT Colonography (combo) [code = CT Colonography (combo)] [facility] Future Scheduled Test 1972 00:00:00 Screening for malignant neoplasm of colon (procedure) [code = 486283674] [facility] Future Scheduled Test 1972 00:00:00 Screening for malignant neoplasm of colon (procedure) [code = 716026340] [facility] Future Scheduled Test 1972 00:00:00 Screening for malignant neoplasm of colon (procedure) [code = 781648372] [facility] Future Scheduled Test 1972 00:00:00 Screening for malignant neoplasm of colon (procedure) [code = 407087635] [facility] Future Scheduled Test 1972 00:00:00 Sigmoidoscopy [code = Sigmoidoscopy] [facility] Future Scheduled Test 1972 00:00:00 Screening for malignant neoplasm of breast (procedure) [code = 251352021] [facility] Future Scheduled Test 1972 00:00:00 CT Colonography (combo) [code = CT Colonography (combo)] [facility] Future Scheduled Test 1972 00:00:00 Screening for malignant neoplasm of colon (procedure) [code = 559853537] [facility] Future Scheduled Test 1972 00:00:00 Screening for malignant neoplasm of colon (procedure) [code = 604453149] [facility] Future Scheduled Test 1972 00:00:00 Screening for malignant neoplasm of colon (procedure) [code = 868520701] [facility] Future Scheduled Test 1972 00:00:00 Screening for malignant neoplasm of colon (procedure) [code = 779902372] [facility] Future Scheduled Test 1972 00:00:00 Sigmoidoscopy [code = Sigmoidoscopy] [facility] Future Scheduled Test 1972 00:00:00 Screening for malignant neoplasm of breast (procedure) [code = 181839578] [facility] Future Scheduled Test 1972 00:00:00 CT Colonography (combo) [code = CT Colonography (combo)] [facility] Future Scheduled Test 1972 00:00:00 Screening for malignant neoplasm of colon (procedure) [code = 561651633] [facility] Future Scheduled Test 1972 00:00:00 Screening for malignant neoplasm of colon (procedure) [code = 364024568] [facility] Future Scheduled Test 1972 00:00:00 Screening for malignant neoplasm of colon (procedure) [code = 977254439] [facility] Future Scheduled Test 1972 00:00:00 Screening for malignant neoplasm of colon (procedure) [code = 820754445] [facility] Future Scheduled Test 1972 00:00:00 Sigmoidoscopy [code = Sigmoidoscopy] [facility] Future Scheduled Test 1972 00:00:00 Screening for malignant neoplasm of breast (procedure) [code = 820567874] [facility] Future Scheduled Test 1972 00:00:00 CT Colonography (combo) [code = CT Colonography (combo)] [facility] Future Scheduled Test 1972 00:00:00 Screening for malignant neoplasm of breast (procedure) [code = 473860590] [facility] Future Scheduled Test 1972 00:00:00 CT Colonography (combo) [code = CT Colonography (combo)] [facility] [facility] 1972 00:00:00 Screening for malignant neoplasm of colon (procedure) [code = [id number]] [facility] Test 1972 00:00:00 Screening for malignant neoplasm of colon (procedure) [code = 342176893] [facility] Sched[facility] Test 1972 00:00:00 Screening for malignant neoplasm of colon (procedure) [code = 777107840] [facility] Scheduled Test 1972 00:00:00 Screening for malignant neoplasm of colon (procedure) [code = [id number]] [facility] Sched[facility] Test 1972 00:00:00 Sigmoidoscopy [code = Sigmoidoscopy] [facility] Scheduled Test 1972 00:00:00 Screening for malignant neoplasm of colon (procedure) [code = 359321158] [facility] Scheduled Test 1972 00:00:00 Screening for malignant neoplasm of colon (procedure) [code = 802516823] [facility] Scheduled Test 1972 00:00:00 Screening for malignant neoplasm of colon (procedure) [code = 509662432] [facility] Scheduled Test 1972 00:00:00 Screening for malignant neoplasm of colon (procedure) [code = 884996603] [facility] Scheduled Test 1972 00:00:00 Sigmoidoscopy [code = Sigmoidoscopy] [facility] Scheduled Test 1972 00:00:00 Screening for malignant neoplasm of breast (procedure) [code = 121535588] [facility] Sched[facility] Test 1972 00:00:00 CT Colonography (combo) [code = CT Colonography (combo)] [facility] Scheduled Test 1972 00:00:00 Screening for malignant neoplasm of colon (procedure) [code = 251258631] [facility] Scheduled Test 1972 00:00:00 Screening for malignant neoplasm of colon (procedure) [code = 549821339] [facility] Scheduled Test 1972 00:00:00 Screening for malignant neoplasm of colon (procedure) [code = 249435490] [facility] Scheduled Test 1972 00:00:00 Screening for malignant neoplasm of colon (procedure) [code = 855235891] [facility] Scheduled Test 1972 00:00:00 Sigmoidoscopy [code = Sigmoidoscopy] [facility] Scheduled Test 1972 00:00:00 Screening for malignant neoplasm of breast (procedure) [code = 642579981] [facility] Scheduled Test 1972 00:00:00 CT Colonography (combo) [code = CT Colonography (combo)] [facility] Scheduled Test 1972 00:00:00 Screening for malignant neoplasm of colon (procedure) [code = 983391534] [facility] Scheduled Test 1972 00:00:00 Screening for malignant neoplasm of colon (procedure) [code = 777978014] [facility] Scheduled Test 1972 00:00:00 Screening for malignant neoplasm of colon (procedure) [code = 864674310] [facility] Scheduled Test 1972 00:00:00 Screening for malignant neoplasm of colon (procedure) [code = 356404191] [facility] Scheduled Test 1972 00:00:00 Sigmoidoscopy [code = Sigmoidoscopy] [facility] Scheduled Test 1972 00:00:00 Screening for malignant neoplasm of breast (procedure) [code = 821518965] [facility] Scheduled Test 1972 00:00:00 CT Colonography (combo) [code = CT Colonography (combo)] [facility] Scheduled Test 1972 00:00:00 Screening for malignant neoplasm of colon (procedure) [code = 225261856] [facility] Scheduled Test 1972 00:00:00 Screening for malignant neoplasm of colon (procedure) [code = 456383229] [facility] Scheduled Test 1972 00:00:00 Screening for malignant neoplasm of colon (procedure) [code = 958061306] [facility] Scheduled Test 1972 00:00:00 Screening for malignant neoplasm of colon (procedure) [code = 132929477] [facility] Scheduled Test 1972 00:00:00 Sigmoidoscopy [code = Sigmoidoscopy] [facility] Scheduled Test 1972 00:00:00 Screening for malignant neoplasm of breast (procedure) [code = 113790951] [facility] Scheduled Test 1972 00:00:00 CT Colonography (combo) [code = CT Colonography (combo)] [facility] Scheduled Test 1972 00:00:00 Screening for malignant neoplasm of colon (procedure) [code = 806147795] [facility] Scheduled Test 1972 00:00:00 Screening for malignant neoplasm of colon (procedure) [code = 081065400] [facility] Scheduled Test 1972 00:00:00 Screening for malignant neoplasm of colon (procedure) [code = 768221041] [facility] Scheduled Test 1972 00:00:00 Screening for malignant neoplasm of colon (procedure) [code = 257693378] [facility] Scheduled Test 1972 00:00:00 Sigmoidoscopy [code = Sigmoidoscopy] [facility] Scheduled Test 1972 00:00:00 Screening for malignant neoplasm of breast (procedure) [code = 453007598] [facility] Scheduled Test 1972 00:00:00 CT Colonography (combo) [code = CT Colonography (combo)] [facility] Scheduled Test 1972 00:00:00 Screening for malignant neoplasm of colon (procedure) [code = 219797020] [facility] Scheduled Test 1972 00:00:00 Screening for malignant neoplasm of colon (procedure) [code = 647159722] [facility] Scheduled Test 1972 00:00:00 Screening for malignant neoplasm of colon (procedure) [code = 999376241] [facility] Scheduled Test 1972 00:00:00 Screening for malignant neoplasm of colon (procedure) [code = 317304302] [facility] Scheduled Test 1972 00:00:00 Sigmoidoscopy [code = Sigmoidoscopy] [facility] Scheduled Test 1972 00:00:00 Screening for malignant neoplasm of breast (procedure) [code = 758485249] [facility] Scheduled Test 1972 00:00:00 CT Colonography (combo) [code = CT Colonography (combo)] [facility] Scheduled Test 1972 00:00:00 Screening for malignant neoplasm of colon (procedure) [code = 979808958] [facility] Scheduled Test 1972 00:00:00 Screening for malignant neoplasm of colon (procedure) [code = 163320075] [facility] Scheduled Test 1972 00:00:00 Screening for malignant neoplasm of colon (procedure) [code = 440802574] [facility] Scheduled Test 1972 00:00:00 Screening for malignant neoplasm of colon (procedure) [code = 289577182] [facility] Scheduled Test 1972 00:00:00 Sigmoidoscopy [code = Sigmoidoscopy] [facility] Scheduled Test 1972 00:00:00 Screening for malignant neoplasm of breast (procedure) [code = 318541383] [facility] Scheduled Test 1972 00:00:00 CT Colonography (combo) [code = CT Colonography (combo)] [facility] Scheduled Test 1972 00:00:00 Screening for malignant neoplasm of colon (procedure) [code = 739187365] [facility] Scheduled Test 1972 00:00:00 Screening for malignant neoplasm of colon (procedure) [code = 142140925] [facility] Scheduled Test 1972 00:00:00 Screening for malignant neoplasm of colon (procedure) [code = 467311530] [facility] Scheduled Test 1972 00:00:00 Screening for malignant neoplasm of colon (procedure) [code = 509747991] [facility] Scheduled Test 1972 00:00:00 Screening for malignant neoplasm of breast (procedure) [code = 579378950] [facility] Scheduled Test 1972 00:00:00 CT Colonography (combo) [code = CT Colonography (combo)] [facility] Scheduled Test 1972 00:00:00 Sigmoidoscopy [code = Sigmoidoscopy] [facility] Scheduled Test 1972 00:00:00 Screening for malignant neoplasm of colon (procedure) [code = 178657413] [facility] Scheduled Test 1972 00:00:00 Screening for malignant neoplasm of colon (procedure) [code = 242763860] [facility] Scheduled Test 1972 00:00:00 Screening for malignant neoplasm of colon (procedure) [code = 229549736] [facility] Scheduled Test 1972 00:00:00 Screening for malignant neoplasm of colon (procedure) [code = 601375563] [facility] Scheduled Test 1972 00:00:00 Sigmoidoscopy [code = Sigmoidoscopy] [facility] Test 1972 00:00:00 Screening for malignant neoplasm of breast (procedure) [code = 943038339] [facility] Test 1972 00:00:00 CT Colonography (combo) [code = CT Colonography (combo)] [facility] Scheduled Test 1972 00:00:00 Screening for malignant neoplasm of colon (procedure) [code = 913434844] [facility] Scheduled Test 1972 00:00:00 Screening for malignant neoplasm of colon (procedure) [code = 950607937] [facility] Scheduled Test 1972 00:00:00 Screening for malignant neoplasm of colon (procedure) [code = 904647718] [facility] Scheduled Test 1972 00:00:00 Screening for malignant neoplasm of colon (procedure) [code = 843321892] [facility] Scheduled Test 1972 00:00:00 Sigmoidoscopy [code = Sigmoidoscopy] [facility] Scheduled Test 1972 00:00:00 Screening for malignant neoplasm of breast (procedure) [code = 076504292] [facility] Scheduled Test 1972 00:00:00 CT Colonography (combo) [code = CT Colonography (combo)] [facility] Scheduled Test 1972 00:00:00 Screening for malignant neoplasm of colon (procedure) [code = 774831392] [facility] Scheduled Test 1972 00:00:00 Screening for malignant neoplasm of colon (procedure) [code = 464696751] [facility] Scheduled Test 1972 00:00:00 Screening for malignant neoplasm of colon (procedure) [code = 074284119] [facility] Scheduled Test 1972 00:00:00 Screening for malignant neoplasm of colon (procedure) [code = 740383129] [facility] Scheduled Test 1972 00:00:00 Sigmoidoscopy [code = Sigmoidoscopy] [facility] Scheduled Test 1972 00:00:00 Screening for malignant neoplasm of breast (procedure) [code = 200407516] [facility] Scheduled Test 1972 00:00:00 CT Colonography (combo) [code = CT Colonography (combo)] [facility] Scheduled Test 1972 00:00:00 Screening for malignant neoplasm of colon (procedure) [code = 817178020] [facility] Scheduled Test 1972 00:00:00 Screening for malignant neoplasm of colon (procedure) [code = 921552735] [facility] Scheduled Test 1972 00:00:00 Screening for malignant neoplasm of colon (procedure) [code = 921002233] [facility] Scheduled Test 1972 00:00:00 Screening for malignant neoplasm of colon (procedure) [code = 434385135] [facility] Scheduled Test 1972 00:00:00 Sigmoidoscopy [code = Sigmoidoscopy] [facility] Scheduled Test 1972 00:00:00 Screening for malignant neoplasm of breast (procedure) [code = 994476287] [facility] Scheduled Test 1972 00:00:00 CT Colonography (combo) [code = CT Colonography (combo)] [facility] Scheduled Test 1972 00:00:00 Screening for malignant neoplasm of colon (procedure) [code = 992489608] [facility] Scheduled Test 1972 00:00:00 Screening for malignant neoplasm of colon (procedure) [code = 282156895] [facility] Scheduled Test 1972 00:00:00 Screening for malignant neoplasm of colon (procedure) [code = 280835602] [facility] Scheduled Test 1972 00:00:00 Screening for malignant neoplasm of colon (procedure) [code = 400373326] [facility] Scheduled Test 1972 00:00:00 Sigmoidoscopy [code = Sigmoidoscopy] [facility] Scheduled Test 1972 00:00:00 Screening for malignant neoplasm of breast (procedure) [code = 258308148] [facility] Scheduled Test 1972 00:00:00 CT Colonography (combo) [code = CT Colonography (combo)] [facility] Scheduled Test 1972 00:00:00 Screening for malignant neoplasm of colon (procedure) [code = 176620092] [facility] Scheduled Test 1972 00:00:00 Screening for malignant neoplasm of colon (procedure) [code = 085794018] [facility] Scheduled Test 1972 00:00:00 Screening for malignant neoplasm of colon (procedure) [code = 946400898] [facility] Scheduled Test 1972 00:00:00 Screening for malignant neoplasm of colon (procedure) [code = 884390048] [facility] Scheduled Test 1972 00:00:00 Sigmoidoscopy [code = Sigmoidoscopy] [facility] Scheduled Test 1972 00:00:00 Screening for malignant neoplasm of breast (procedure) [code = 052384870] [facility] Scheduled Test 1972 00:00:00 CT Colonography (combo) [code = CT Colonography (combo)] [facility] Scheduled Test 1972 00:00:00 Screening for malignant neoplasm of colon (procedure) [code = 965992483] [facility] Scheduled Test 1972 00:00:00 Screening for malignant neoplasm of colon (procedure) [code = 239538701] [facility] Scheduled Test 1972 00:00:00 Screening for malignant neoplasm of breast (procedure) [code = 634116792] [facility] Scheduled Test 1972 00:00:00 Screening for malignant neoplasm of colon (procedure) [code = 061906883] [facility] Scheduled Test 1972 00:00:00 CT Colonography (combo) [code = CT Colonography (combo)] [facility] Scheduled Test 1972 00:00:00 Screening for malignant neoplasm of colon (procedure) [code = 207535224] [facility] Scheduled Test 1972 00:00:00 Screening for malignant neoplasm of colon (procedure) [code = 675419979] [facility] Scheduled Test 1972 00:00:00 Screening for malignant neoplasm of colon (procedure) [code = 866322850] [facility] Scheduled Test 1972 00:00:00 Screening for malignant neoplasm of colon (procedure) [code = 096036135] [facility] Scheduled Test 1972 00:00:00 Sigmoidoscopy [code = Sigmoidoscopy] [facility] Scheduled Test 1972 00:00:00 Screening for malignant neoplasm of colon (procedure) [code = 834162128] [facility] Scheduled Test 1972 00:00:00 Sigmoidoscopy [code = Sigmoidoscopy] [facility] Scheduled Test 1972 00:00:00 Screening for malignant neoplasm of breast (procedure) [code = 211422483] [facility] Scheduled Test 1972 00:00:00 CT Colonography (combo) [code = CT Colonography (combo)] [facility] Scheduled Test 1972 00:00:00 Screening for malignant neoplasm of colon (procedure) [code = 131362202] [facility] Scheduled Test 1972 00:00:00 Screening for malignant neoplasm of colon (procedure) [code = 467987177] [facility] Scheduled Test 1972 00:00:00 Screening for malignant neoplasm of colon (procedure) [code = 199127123] [facility] Scheduled Test 1972 00:00:00 Screening for malignant neoplasm of colon (procedure) [code = 248945418] [facility] Scheduled Test 1972 00:00:00 Sigmoidoscopy [code = Sigmoidoscopy] [facility] Scheduled Test 1972 00:00:00 Screening for malignant neoplasm of breast (procedure) [code = 203015624] [facility] Scheduled Test 1972 00:00:00 CT Colonography (combo) [code = CT Colonography (combo)] [facility] Scheduled Test 1972 00:00:00 Screening for malignant neoplasm of colon (procedure) [code = 423157105] [facility] Scheduled Test 1972 00:00:00 Screening for malignant neoplasm of colon (procedure) [code = 025435801] [facility] Scheduled Test 1972 00:00:00 Screening for malignant neoplasm of colon (procedure) [code = 901239600] [facility] Scheduled Test 1972 00:00:00 Screening for malignant neoplasm of colon (procedure) [code = 300166836] [facility] Scheduled Test 1972 00:00:00 Sigmoidoscopy [code = Sigmoidoscopy] [facility] Scheduled Test 1972 00:00:00 Screening for malignant neoplasm of breast (procedure) [code = 243850026] [facility] Scheduled Test 1972 00:00:00 CT Colonography (combo) [code = CT Colonography (combo)] [facility] Scheduled Test 1972 00:00:00 Screening for malignant neoplasm of colon (procedure) [code = 149294081] [facility] Scheduled Test 1972 00:00:00 Screening for malignant neoplasm of colon (procedure) [code = 430233081] [facility] Scheduled Test 1972 00:00:00 Screening for malignant neoplasm of colon (procedure) [code = 514522546] [facility] Scheduled Test 1972 00:00:00 Screening for malignant neoplasm of colon (procedure) [code = 158368434] [facility] Scheduled Test 1972 00:00:00 Sigmoidoscopy [code = Sigmoidoscopy] [facility] Scheduled Test 1972 00:00:00 Screening for malignant neoplasm of breast (procedure) [code = 346318428] [facility] Scheduled Test 1972 00:00:00 CT Colonography (combo) [code = CT Colonography (combo)] [facility] Scheduled Test 1972 00:00:00 Screening for malignant neoplasm of colon (procedure) [code = 624158463] [facility] Scheduled Test 1972 00:00:00 Screening for malignant neoplasm of colon (procedure) [code = 929506136] [facility] Scheduled Test 1972 00:00:00 Screening for malignant neoplasm of colon (procedure) [code = 844134757] [facility] Scheduled Test 1972 00:00:00 Screening for malignant neoplasm of colon (procedure) [code = 072855466] [facility] Scheduled Test 1972 00:00:00 Sigmoidoscopy [code = Sigmoidoscopy] [facility] Scheduled Test 1972 00:00:00 Screening for malignant neoplasm of breast (procedure) [code = 253599492] [facility] Scheduled Test 1972 00:00:00 CT Colonography (combo) [code = CT Colonography (combo)] [facility] Scheduled Test 1972 00:00:00 Screening for malignant neoplasm of colon (procedure) [code = 516110237] [facility] Scheduled Test 1972 00:00:00 Screening for malignant neoplasm of colon (procedure) [code = 823620864] [facility] Scheduled Test 1972 00:00:00 Screening for malignant neoplasm of colon (procedure) [code = 707339229] [facility] Scheduled Test 1972 00:00:00 Screening for malignant neoplasm of colon (procedure) [code = 968090707] [facility] Scheduled Test 1972 00:00:00 Sigmoidoscopy [code = Sigmoidoscopy] [facility] Scheduled Test 1972 00:00:00 Screening for malignant neoplasm of breast (procedure) [code = 893843958] [facility] Scheduled Test 1972 00:00:00 CT Colonography (combo) [code = CT Colonography (combo)] [facility] Scheduled Test 1972 00:00:00 Screening for malignant neoplasm of colon (procedure) [code = 981603746] [facility] Scheduled Test 1972 00:00:00 Screening for malignant neoplasm of colon (procedure) [code = 491947770] [facility] Scheduled Test 1972 00:00:00 Screening for malignant neoplasm of colon (procedure) [code = 006109225] [facility] Scheduled Test 1972 00:00:00 Screening for malignant neoplasm of colon (procedure) [code = 963809890] [facility] Scheduled Test 1972 00:00:00 Sigmoidoscopy [code = Sigmoidoscopy] [facility] Scheduled Test 1972 00:00:00 Screening for malignant neoplasm of breast (procedure) [code = 438582314] [facility] Scheduled Test 1972 00:00:00 CT Colonography (combo) [code = CT Colonography (combo)] [facility] Scheduled Test 1972 00:00:00 Screening for malignant neoplasm of colon (procedure) [code = 946487972] [facility] Scheduled Test 1972 00:00:00 Screening for malignant neoplasm of colon (procedure) [code = 247575373] [facility] Scheduled Test 1972 00:00:00 Screening for malignant neoplasm of colon (procedure) [code = 756720008] [facility] Scheduled Test 1972 00:00:00 Screening for malignant neoplasm of colon (procedure) [code = 240246555] [facility] Scheduled Test 1972 00:00:00 Sigmoidoscopy [code = Sigmoidoscopy] [facility] Scheduled Test 1972 00:00:00 Screening for malignant neoplasm of breast (procedure) [code = 924521467] [facility] Scheduled Test 1972 00:00:00 CT Colonography (combo) [code = CT Colonography (combo)] [facility] Scheduled Test 1972 00:00:00 Screening for malignant neoplasm of colon (procedure) [code = 675472506] [facility] Scheduled Test 1972 00:00:00 Screening for malignant neoplasm of colon (procedure) [code = 964042467] [facility] Scheduled Test 1972 00:00:00 Screening for malignant neoplasm of colon (procedure) [code = 226830031] [facility] [facility] 1972 00:00:00 Screening for malignant neoplasm of colon (procedure) [code = [id number]] [facility] Future Scheduled Test 1972 00:00:00 Sigmoidoscopy [code = Sigmoidoscopy] [facility] Future Scheduled Test 1972 00:00:00 Screening for malignant neoplasm of breast (procedure) [code = 944579349] [facility] Future Scheduled Test 1972 00:00:00 CT Colonography (combo) [code = CT Colonography (combo)] [facility] Scheduled Test 1972 00:00:00 Screening for malignant neoplasm of colon (procedure) [code = 857383483] [facility] Future Scheduled Test 1972 00:00:00 Screening for malignant neoplasm of colon (procedure) [code = 083248076] [facility] Future Scheduled Test 1972 00:00:00 Screening for malignant neoplasm of colon (procedure) [code = 710162594] [facility] Future Scheduled Test 1972 00:00:00 Screening for malignant neoplasm of colon (procedure) [code = 156233794] [facility] Future Scheduled Test 1972 00:00:00 Sigmoidoscopy [code = Sigmoidoscopy] [facility] Future Scheduled Test 1972 00:00:00 Screening for malignant neoplasm of breast (procedure) [code = 318524186] [facility] Future Scheduled Test 1972 00:00:00 CT Colonography (combo) [code = CT Colonography (combo)] [facility] Future Scheduled Test 1972 00:00:00 Screening for malignant neoplasm of colon (procedure) [code = 996208392] [facility] Future Scheduled Test 1972 00:00:00 Screening for malignant neoplasm of colon (procedure) [code = 048981473] [facility] Future Scheduled Test 1972 00:00:00 Screening for malignant neoplasm of colon (procedure) [code = 958406983] [facility] Future Scheduled Test 1972 00:00:00 Screening for malignant neoplasm of colon (procedure) [code = 893182008] [facility] Future Scheduled Test 1972 00:00:00 Sigmoidoscopy [code = Sigmoidoscopy] [facility] Future Scheduled Test 1972 00:00:00 Screening for malignant neoplasm of breast (procedure) [code = 344660338] [facility] Future Scheduled Test 1972 00:00:00 CT Colonography (combo) [code = CT Colonography (combo)] [facility] Future Scheduled Test 1972 00:00:00 Screening for malignant neoplasm of colon (procedure) [code = 013053056] [facility] Future Scheduled Test 1972 00:00:00 Screening for malignant neoplasm of breast (procedure) [code = 164008101] [facility] Future Scheduled Test 1972 00:00:00 CT Colonography (combo) [code = CT Colonography (combo)] [facility] Future Scheduled Test 1972 00:00:00 Screening for malignant neoplasm of colon (procedure) [code = 280286624] [facility] Future Scheduled Test 1972 00:00:00 Screening for malignant neoplasm of colon (procedure) [code = 288743646] [facility] Future Scheduled Test 1972 00:00:00 Screening for malignant neoplasm of colon (procedure) [code = 371722518] [facility] Future Scheduled Test 1972 00:00:00 Screening for malignant neoplasm of colon (procedure) [code = 699071537] [facility] Future Scheduled Test 1972 00:00:00 Sigmoidoscopy [code = Sigmoidoscopy] [facility] Future Scheduled Test 1972 00:00:00 Screening for malignant neoplasm of colon (procedure) [code = 218962124] [facility] Future Scheduled Test 1972 00:00:00 Screening for malignant neoplasm of colon (procedure) [code = 434985714] [facility] Future Scheduled Test 1972 00:00:00 Screening for malignant neoplasm of colon (procedure) [code = 297541836] [facility] Future Scheduled Test 1972 00:00:00 Sigmoidoscopy [code = Sigmoidoscopy] [facility] Future Scheduled Test 1972 00:00:00 Screening for malignant neoplasm of breast (procedure) [code = 192721178] [facility] Future Scheduled Test 1972 00:00:00 CT Colonography (combo) [code = CT Colonography (combo)] [facility] Future Scheduled Test 1972 00:00:00 Screening for malignant neoplasm of colon (procedure) [code = 145914530] [facility] Future Scheduled Test 1972 00:00:00 Screening for malignant neoplasm of colon (procedure) [code = 922561836] [facility] Future Scheduled Test 1972 00:00:00 Screening for malignant neoplasm of colon (procedure) [code = 869188840] [facility] Future Scheduled Test 1972 00:00:00 Screening for malignant neoplasm of colon (procedure) [code = 256135401] [facility] Future Scheduled Test 1972 00:00:00 Sigmoidoscopy [code = Sigmoidoscopy] [facility] Future Scheduled Test 1972 00:00:00 Screening for malignant neoplasm of breast (procedure) [code = 956164366] [facility] Future Scheduled Test 1972 00:00:00 CT Colonography (combo) [code = CT Colonography (combo)] [facility] Future Scheduled Test 1972 00:00:00 Screening for malignant neoplasm of colon (procedure) [code = 557218532] [facility] Future Scheduled Test 1972 00:00:00 Screening for malignant neoplasm of colon (procedure) [code = 522899127] [facility] Future Scheduled Test 1972 00:00:00 Screening for malignant neoplasm of colon (procedure) [code = 289539777] [facility] Future Scheduled Test 1972 00:00:00 Screening for malignant neoplasm of colon (procedure) [code = 821775581] [facility] Future Scheduled Test 1972 00:00:00 Sigmoidoscopy [code = Sigmoidoscopy] [facility] Future Scheduled Test 1972 00:00:00 Screening for malignant neoplasm of breast (procedure) [code = 869340446] [facility] Future Scheduled Test 1972 00:00:00 CT Colonography (combo) [code = CT Colonography (combo)] [facility] Future Scheduled Test 1972 00:00:00 Screening for malignant neoplasm of colon (procedure) [code = 813030560] [facility] Future Scheduled Test 1972 00:00:00 Screening for malignant neoplasm of colon (procedure) [code = 585295117] [facility] Future Scheduled Test 1972 00:00:00 Screening for malignant neoplasm of colon (procedure) [code = 081511495] [facility] Future Scheduled Test 1972 00:00:00 Screening for malignant neoplasm of colon (procedure) [code = 121587483] [facility] Future Scheduled Test 1972 00:00:00 Sigmoidoscopy [code = Sigmoidoscopy] [facility] Future Scheduled Test 1972 00:00:00 Screening for malignant neoplasm of breast (procedure) [code = 180750876] [facility] Future Scheduled Test 1972 00:00:00 CT Colonography (combo) [code = CT Colonography (combo)] [facility] Future Scheduled Test 1972 00:00:00 Screening for malignant neoplasm of colon (procedure) [code = 213066745] [facility] Future Scheduled Test 1972 00:00:00 Screening for malignant neoplasm of colon (procedure) [code = 390845058] [facility] Future Scheduled Test 1972 00:00:00 Screening for malignant neoplasm of colon (procedure) [code = 853439532] [facility] Future Scheduled Test 1972 00:00:00 Screening for malignant neoplasm of colon (procedure) [code = 734609230] [facility] Future Scheduled Test 1972 00:00:00 Sigmoidoscopy [code = Sigmoidoscopy] [facility] Future Scheduled Test 1972 00:00:00 Screening for malignant neoplasm of breast (procedure) [code = 455533052] [facility] Future Scheduled Test 1972 00:00:00 CT Colonography (combo) [code = CT Colonography (combo)] [facility] Future Scheduled Test 1972 00:00:00 Screening for malignant neoplasm of colon (procedure) [code = 177295539] [facility] Future Scheduled Test 1972 00:00:00 Screening for malignant neoplasm of colon (procedure) [code = 086413743] [facility] Scheduled Test 1972 00:00:00 Screening for malignant neoplasm of colon (procedure) [code = 132186378] [facility] Future Scheduled Test 1972 00:00:00 Screening for malignant neoplasm of colon (procedure) [code = 864067918] [facility] Future Scheduled Test 1972 00:00:00 Screening for malignant neoplasm of breast (procedure) [code = 475828712] [facility] Future Scheduled Test 1972 00:00:00 Sigmoidoscopy [code = Sigmoidoscopy] [facility] Future Scheduled Test 1972 00:00:00 CT Colonography (combo) [code = CT Colonography (combo)] [facility] Future Scheduled Test 1972 00:00:00 Screening for malignant neoplasm of colon (procedure) [code = 807814468] [facility] Future Scheduled Test 1972 00:00:00 Screening for malignant neoplasm of breast (procedure) [code = 092222524] [facility] Future Scheduled Test 1972 00:00:00 CT Colonography (combo) [code = CT Colonography (combo)] [facility] Future Scheduled Test 1972 00:00:00 Screening for malignant neoplasm of colon (procedure) [code = 168801163] [facility] Future Scheduled Test 1972 00:00:00 Screening for malignant neoplasm of colon (procedure) [code = 209995492] [facility] Future Scheduled Test 1972 00:00:00 Screening for malignant neoplasm of colon (procedure) [code = 753526104] [facility] Future Scheduled Test 1972 00:00:00 Screening for malignant neoplasm of colon (procedure) [code = 957702793] [facility] Future Scheduled Test 1972 00:00:00 Screening for malignant neoplasm of colon (procedure) [code = 279064038] [facility] Future Scheduled Test 1972 00:00:00 Sigmoidoscopy [code = Sigmoidoscopy] [facility] Future Scheduled Test 1972 00:00:00 Screening for malignant neoplasm of colon (procedure) [code = 637422175] [facility] Future Scheduled Test 1972 00:00:00 Screening for malignant neoplasm of colon (procedure) [code = 629619976] [facility] Future Scheduled Test 1972 00:00:00 Screening for malignant neoplasm of breast (procedure) [code = 294367123] [facility] Future Scheduled Test 1972 00:00:00 CT Colonography (combo) [code = CT Colonography (combo)] [facility] Future Scheduled Test 1972 00:00:00 Screening for malignant neoplasm of colon (procedure) [code = 159568822] [facility] Future Scheduled Test 1972 00:00:00 Screening for malignant neoplasm of colon (procedure) [code = 247530206] [facility] Future Scheduled Test 1972 00:00:00 Sigmoidoscopy [code = Sigmoidoscopy] [facility] Future Scheduled Test 1972 00:00:00 Screening for malignant neoplasm of colon (procedure) [code = 432669734] [facility] Future Scheduled Test 1972 00:00:00 Screening for malignant neoplasm of colon (procedure) [code = 097918053] [facility] Future Scheduled Test 1972 00:00:00 Sigmoidoscopy [code = Sigmoidoscopy] [facility] Future Scheduled Test 1972 00:00:00 Screening for malignant neoplasm of breast (procedure) [code = 959491989] [facility] Future Scheduled Test 1972 00:00:00 CT Colonography (combo) [code = CT Colonography (combo)] [facility] Future Scheduled Test 1972 00:00:00 Screening for malignant neoplasm of colon (procedure) [code = 078380757] [facility] Future Scheduled Test 1972 00:00:00 Screening for malignant neoplasm of colon (procedure) [code = 188347386] [facility] Future Scheduled Test 1972 00:00:00 Screening for malignant neoplasm of colon (procedure) [code = 756060022] [facility] Future Scheduled Test 1972 00:00:00 Screening for malignant neoplasm of colon (procedure) [code = 728014085] [facility] Future Scheduled Test 1972 00:00:00 Sigmoidoscopy [code = Sigmoidoscopy] [facility] Future Scheduled Test 1972 00:00:00 Screening for malignant neoplasm of breast (procedure) [code = 696799461] [facility] Future Scheduled Test 1972 00:00:00 CT Colonography (combo) [code = CT Colonography (combo)] [facility] Future Scheduled Test 1972 00:00:00 Screening for malignant neoplasm of colon (procedure) [code = 630634905] [facility] Future Scheduled Test 1972 00:00:00 Screening for malignant neoplasm of colon (procedure) [code = 830431422] [facility] Future Scheduled Test 1972 00:00:00 Screening for malignant neoplasm of colon (procedure) [code = 227843868] [facility] Future Scheduled Test 1972 00:00:00 Screening for malignant neoplasm of colon (procedure) [code = 114709237] [facility] Future Scheduled Test 1972 00:00:00 Sigmoidoscopy [code = Sigmoidoscopy] [facility] Future Scheduled Test 1972 00:00:00 Screening for malignant neoplasm of breast (procedure) [code = 920043338] [facility] Future Scheduled Test 1972 00:00:00 CT Colonography (combo) [code = CT Colonography (combo)] [facility] Future Scheduled Test 1972 00:00:00 Screening for malignant neoplasm of colon (procedure) [code = 616977070] [facility] Future Scheduled Test 1972 00:00:00 Screening for malignant neoplasm of colon (procedure) [code = 480212238] [facility] Future Scheduled Test 1972 00:00:00 Screening for malignant neoplasm of colon (procedure) [code = 611842765] [facility] Future Scheduled Test 1972 00:00:00 Screening for malignant neoplasm of colon (procedure) [code = 353502826] [facility] Future Scheduled Test 1972 00:00:00 Sigmoidoscopy [code = Sigmoidoscopy] [facility] Future Scheduled Test 1972 00:00:00 Screening for malignant neoplasm of breast (procedure) [code = 426449128] [facility] Future Scheduled Test 1972 00:00:00 CT Colonography (combo) [code = CT Colonography (combo)] [facility] Future Scheduled Test 1972 00:00:00 Screening for malignant neoplasm of colon (procedure) [code = 347774727] [facility] Future Scheduled Test 1972 00:00:00 Screening for malignant neoplasm of colon (procedure) [code = 703819328] [facility] Future Scheduled Test 1972 00:00:00 Screening for malignant neoplasm of colon (procedure) [code = 975430673] [facility] Future Scheduled Test 1972 00:00:00 Screening for malignant neoplasm of colon (procedure) [code = 007197185] [facility] Future Scheduled Test 1972 00:00:00 Sigmoidoscopy [code = Sigmoidoscopy] [facility] Future Scheduled Test 1972 00:00:00 Screening for malignant neoplasm of breast (procedure) [code = 938517168] [facility] Future Scheduled Test 1972 00:00:00 CT Colonography (combo) [code = CT Colonography (combo)] [facility] Future Scheduled Test 1972 00:00:00 Screening for malignant neoplasm of colon (procedure) [code = 460536895] [facility] Future Scheduled Test 1972 00:00:00 Screening for malignant neoplasm of colon (procedure) [code = 550671416] [facility] Future Scheduled Test 1972 00:00:00 Screening for malignant neoplasm of colon (procedure) [code = 117434815] [facility] Future Scheduled Test 1972 00:00:00 Screening for malignant neoplasm of colon (procedure) [code = 710290121] [facility] Future Scheduled Test 1972 00:00:00 Sigmoidoscopy [code = Sigmoidoscopy] [facility] Future Scheduled Test 1972 00:00:00 Screening for malignant neoplasm of breast (procedure) [code = 794224483] [facility] Future Scheduled Test 1972 00:00:00 CT Colonography (combo) [code = CT Colonography (combo)] [facility] Future Scheduled Test 1972 00:00:00 Screening for malignant neoplasm of colon (procedure) [code = 606081714] [facility] Future Scheduled Test 1972 00:00:00 Screening for malignant neoplasm of colon (procedure) [code = 849580007] [facility] Future Scheduled Test 1972 00:00:00 Screening for malignant neoplasm of colon (procedure) [code = 175373456] [facility] Future Scheduled Test 1972 00:00:00 Screening for malignant neoplasm of colon (procedure) [code = 858422569] [facility] Future Scheduled Test 1972 00:00:00 Sigmoidoscopy [code = Sigmoidoscopy] [facility] Future Scheduled Test 1972 00:00:00 Screening for malignant neoplasm of breast (procedure) [code = 582125253] [facility] Future Scheduled Test 1972 00:00:00 CT Colonography (combo) [code = CT Colonography (combo)] [facility] Future Scheduled Test 1972 00:00:00 Screening for malignant neoplasm of colon (procedure) [code = 512892047] [facility] Future Scheduled Test 1972 00:00:00 Screening for malignant neoplasm of colon (procedure) [code = 871056911] [facility] Future Scheduled Test 1972 00:00:00 Screening for malignant neoplasm of colon (procedure) [code = 031127628] [facility] Future Scheduled Test 1972 00:00:00 Screening for malignant neoplasm of colon (procedure) [code = 172869353] [facility] Future Scheduled Test 1972 00:00:00 Sigmoidoscopy [code = Sigmoidoscopy] [facility] Future Scheduled Test 1972 00:00:00 Screening for malignant neoplasm of breast (procedure) [code = 127923029] [facility] Future Scheduled Test 1972 00:00:00 CT Colonography (combo) [code = CT Colonography (combo)] [facility] Future Scheduled Test 1972 00:00:00 Screening for malignant neoplasm of colon (procedure) [code = 825946501] [facility] Future Scheduled Test 1972 00:00:00 Screening for malignant neoplasm of colon (procedure) [code = 413391014] [facility] Future Scheduled Test 1972 00:00:00 Screening for malignant neoplasm of colon (procedure) [code = 720991988] [facility] Future Scheduled Test 1972 00:00:00 Screening for malignant neoplasm of colon (procedure) [code = 412901747] [facility] Future Scheduled Test 1972 00:00:00 Sigmoidoscopy [code = Sigmoidoscopy] [facility] Future Scheduled Test 1972 00:00:00 Screening for malignant neoplasm of breast (procedure) [code = 531085180] [facility] Future Scheduled Test 1972 00:00:00 CT Colonography (combo) [code = CT Colonography (combo)] [facility] Future Scheduled Test 1972 00:00:00 Screening for malignant neoplasm of colon (procedure) [code = 514511074] [facility] Future Scheduled Test 1972 00:00:00 Screening for malignant neoplasm of colon (procedure) [code = 743791708] [facility] Future Scheduled Test 1972 00:00:00 Screening for malignant neoplasm of colon (procedure) [code = 005202156] [facility] Future Scheduled Test 1972 00:00:00 Screening for malignant neoplasm of colon (procedure) [code = 816671811] [facility] Future Scheduled Test 1972 00:00:00 Sigmoidoscopy [code = Sigmoidoscopy] [facility] Future Scheduled Test 1972 00:00:00 Screening for malignant neoplasm of breast (procedure) [code = 564269257] [facility] Future Scheduled Test 1972 00:00:00 CT Colonography (combo) [code = CT Colonography (combo)] [facility] Future Scheduled Test 1972 00:00:00 Screening for malignant neoplasm of colon (procedure) [code = 095104321] [facility] Future Scheduled Test 1972 00:00:00 Screening for malignant neoplasm of colon (procedure) [code = 825247764] [facility] Future Scheduled Test 1972 00:00:00 Screening for malignant neoplasm of colon (procedure) [code = 360915967] [facility] Future Scheduled Test 1972 00:00:00 Screening for malignant neoplasm of colon (procedure) [code = 727677900] [facility] Future Scheduled Test 1972 00:00:00 Sigmoidoscopy [code = Sigmoidoscopy] [facility] Future Scheduled Test 1972 00:00:00 Screening for malignant neoplasm of breast (procedure) [code = 731080584] [facility] Future Scheduled Test 1972 00:00:00 CT Colonography (combo) [code = CT Colonography (combo)] [facility] Future Scheduled Test 1972 00:00:00 Screening for malignant neoplasm of colon (procedure) [code = 974320524] [facility] Future Scheduled Test 1972 00:00:00 Screening for malignant neoplasm of colon (procedure) [code = 519930564] [facility] Future Scheduled Test 1972 00:00:00 Screening for malignant neoplasm of colon (procedure) [code = 354547957] [facility] Future Scheduled Test 1972 00:00:00 Screening for malignant neoplasm of colon (procedure) [code = 164729790] [facility] Future Scheduled Test 1972 00:00:00 Sigmoidoscopy [code = Sigmoidoscopy] [facility] Future Scheduled Test 1972 00:00:00 Screening for malignant neoplasm of breast (procedure) [code = 217702376] [facility] Future Scheduled Test 1972 00:00:00 CT Colonography (combo) [code = CT Colonography (combo)] [facility] Future Scheduled Test 1972 00:00:00 Screening for malignant neoplasm of colon (procedure) [code = 023427060] [facility] Future Scheduled Test 1972 00:00:00 Screening for malignant neoplasm of colon (procedure) [code = 824485312] [facility] Future Scheduled Test 1972 00:00:00 Screening for malignant neoplasm of colon (procedure) [code = 225198252] [facility] Future Scheduled Test 1972 00:00:00 Screening for malignant neoplasm of colon (procedure) [code = 401337882] [facility] Future Scheduled Test 1972 00:00:00 Sigmoidoscopy [code = Sigmoidoscopy] [facility] Future Scheduled Test 1972 00:00:00 Screening for malignant neoplasm of breast (procedure) [code = 069194183] [facility] Future Scheduled Test 1972 00:00:00 CT Colonography (combo) [code = CT Colonography (combo)] [facility] Future Scheduled Test 1972 00:00:00 Screening for malignant neoplasm of colon (procedure) [code = 532648150] [facility] Future Scheduled Test 1972 00:00:00 Screening for malignant neoplasm of colon (procedure) [code = 483535627] [facility] Future Scheduled Test 1972 00:00:00 Screening for malignant neoplasm of colon (procedure) [code = 893008396] [facility] Future Scheduled Test 1972 00:00:00 Screening for malignant neoplasm of colon (procedure) [code = 981395984] [facility] Future Scheduled Test 1972 00:00:00 Sigmoidoscopy [code = Sigmoidoscopy] [facility] Future Scheduled Test 1972 00:00:00 Screening for malignant neoplasm of breast (procedure) [code = 660025157] [facility] Future Scheduled Test 1972 00:00:00 CT Colonography (combo) [code = CT Colonography (combo)] [facility] Future Scheduled Test 1972 00:00:00 Screening for malignant neoplasm of colon (procedure) [code = 497039457] [facility] Future Scheduled Test 1972 00:00:00 Screening for malignant neoplasm of colon (procedure) [code = 267069164] [facility] Future Scheduled Test 1972 00:00:00 Screening for malignant neoplasm of colon (procedure) [code = 603296352] [facility] Future Scheduled Test 1972 00:00:00 Screening for malignant neoplasm of colon (procedure) [code = 321782476] [facility] Future Scheduled Test 1972 00:00:00 Sigmoidoscopy [code = Sigmoidoscopy] [facility] Future Scheduled Test 1972 00:00:00 Screening for malignant neoplasm of breast (procedure) [code = 295108159] [facility] Future Scheduled Test 1972 00:00:00 CT Colonography (combo) [code = CT Colonography (combo)] [facility] Future Scheduled Test 1972 00:00:00 Screening for malignant neoplasm of colon (procedure) [code = 442454279] [facility] Future Scheduled Test 1972 00:00:00 Screening for malignant neoplasm of colon (procedure) [code = 734295100] [facility] Future Scheduled Test 1972 00:00:00 Screening for malignant neoplasm of colon (procedure) [code = 679599651] [facility] Future Scheduled Test 1972 00:00:00 Screening for malignant neoplasm of colon (procedure) [code = 149777481] [facility] Future Scheduled Test 1972 00:00:00 Sigmoidoscopy [code = Sigmoidoscopy] [facility] Future Scheduled Test 1972 00:00:00 Screening for malignant neoplasm of breast (procedure) [code = 089559548] [facility] Future Scheduled Test 1972 00:00:00 CT Colonography (combo) [code = CT Colonography (combo)] [facility] Future Scheduled Test 1972 00:00:00 Screening for malignant neoplasm of colon (procedure) [code = 371427378] [facility] Future Scheduled Test 1972 00:00:00 Screening for malignant neoplasm of colon (procedure) [code = 381861643] [facility] Future Scheduled Test 1972 00:00:00 Screening for malignant neoplasm of colon (procedure) [code = 860142973] [facility] Future Scheduled Test 1972 00:00:00 Screening for malignant neoplasm of colon (procedure) [code = 935228788] [facility] Future Scheduled Test 1972 00:00:00 Sigmoidoscopy [code = Sigmoidoscopy] [facility] Goal Plan of Care Not e [code = 09761-0] Goal Plan of Care Not e [code = 77869-2] Goal Plan of Care Not e [code = 08888-7] Goal Plan of Care Not e [code = 68548-5] Goal Plan of Care Not e [code = 19219-8] Goal Plan of Care Not e [code = 39883-8] Goal Plan of Care Not e [code = 69623-6] Goal Plan of Care Not e [code = 26643-0] Goal Plan of Care Not e [code = 44157-6] Goal Plan of Care Not e [code = 86578-5] Goal Plan of Care Not e [code = 95838-0] Goal Plan of Care Not e [code = 80858-3] Goal Plan of Care Not e [code = 31631-9] Goal Plan of Care Not e [code = 52977-2] Goal Plan of Care Not e [code = 72852-3] Goal Plan of Care Not e [code = 08418-8] Goal Plan of Care Not e [code = 03285-4] Goal Plan of Care Not e [code = 97514-9] Goal Plan of Care Not e [code = 07089-6] Goal Plan of Care Not e [code = 37929-0] Goal Plan of Care Not e [code = 18947-0] Goal Plan of Care Not e [code = 62214-6] Goal Plan of Care Not e [code = 84065-2] Goal Plan of Care Not e [code = 50735-3] Goal Plan of Care Not e [code = 77603-8] Goal Plan of Care Not e [code = 26001-9] Goal Plan of Care Not e [code = 36205-5] Goal Plan of Care Not e [code = 02965-4] Goal Plan of Care Not e [code = 94289-7] Goal Plan of Care Not e [code = 16834-3] Goal Plan of Care Not e [code = 11850-9] Goal Plan of Care Not e [code = 97167-8] Goal Plan of Care Not e [code = 76793-9] Goal Plan of Care Not e [code = 88568-1] Goal Plan of Care Not e [code = 06279-1] Encounters Start Date/Time End Date/Time Encounter Type Admission Type Attending [facility] Care Department Encounter ID Source 2023-09-07 10:11:03 Inpatient PANKAJ PARRISH [facility] [id number] [facility] 2023-09-05 10:08:27 Inpatient PANKAJ PARRISH [facility] [id number] [facility] 2023-09-05 10:05:12 Inpatient PANKAJ PARRISH [facility] [id number] [facility] 2023-09-04 04:51:30 Inpatient PANKAJ PARRISH [facility] [id number] [facility] 2023-09-04 04:14:55 Inpatient PANKAJ PARRISH [facility] [id number] [facility] 2023-09-04 03:08:45 Inpatient PANKAJ PARRISH [facility] [id number] [facility] 2023-09-04 02:36:28 Inpatient [facility] [id number] [facility] 2023-06-16 09:32:36 Inpatient [facility] [id number] [facility] 2023-06-16 09:32:09 Inpatient [facility] [id number] [facility] 2023-06-16 09:31:53 Inpatient [facility] [id number] [facility] 2023-06-14 07:46:02 Inpatient AYDEE DICKENS SLEH [facility] [id number] [facility] 2023-06-14 07:39:22 Inpatient AYDEE DICKENS SLE [facility] [id number] [facility] 2023-06-14 06:38:38 Inpatient [facility] [id number] [facility] 2023-06-13 13:44:18 Inpatient MARIANELA MURPHY [facility] [id number] [facility] 2023-06-13 11:45:24 Inpatient [facility]E [facility]ENS [facility] [id number] [facility] 2023-05-08 11:21:00 Outpatient EL ADAM GARCIA [facility] Surgery [id number] [facility] 2023-04-01 14:26:29 Inpatient ER [facility]AS [facility] [id number] [facility] 2023-03-31 09:24:52 Inpatient ER MARIAH ALDRIDGE [facility] [id number] [facility] 2021-05-20 18:48:04 Emergency [facility] [id number] [facility] 2021-05-20 12:43:40 Emergency [facility] [id number] [facility] 2024-04-14 11:30:00 2024-04-14 11:30:00 Outpatient GUSTAVO DELANEY [id number] Cynthia Garcia 2024-04-02 20:43:00 2024-04-03 00:56:00 Emergency CHRISSY BISHOP [facility] [id number] [facility] 2024-04-02 20:43:2024-04-03 00:56:00 Emergency Chrissy Mohr [facility] 1.2.840.114 350.1.13.10 4.2.7.2.686 [id number] [facility] 2024-03-08 00:00:00 2024-03-08 00:00:00 Outpatient MD CYNTHIA MARLEY [id number] [facility] 2024-01-14 00:00:00 2024-02-20 18:26:15 Patient Secure Msg Doctor Unassigned, [place] [facility] 1..840.114 350.1.13.10 4.2.7.2.686 [id number] [facility] 2024-02-19 00:00:00 2024-02-19 00:00:00 Outpatient GUSTAVO DELANEY [id number] [facility] 2024-02-16 10:15:00 2024-02-16 10:15:00 Outpatient QUINN MORALESMARLEN MTZ [id number] [facility] 2024-01-13 00:00:00 2024-02-13 18:19:27 Patient Secure Msg Doctor Unassigned, [place] [facility] 1.2.840.114 350.1.13.10 4.2.7.2.686 [id number] [facility] 2024-01-12 22:04:00 2024-01-13 00:00:00 Emergency X RADHA WYATT BRENT [facility] ERT [id number] [facility] 2024-01-12 22:04:00 2024-01-13 00:00:00 Emergency VasutRadha [facility] 1.2.840.114 350.1.13.10 4.2.7.2.686 [id number] [facility] 2024-01-12 00:00:00 2024-01-12 16:22:23 Transition of Care Veronique Carrillo 1.2.840.114 350.1.13.10 4.2.7.2.686 [id number] [facility] 2024-01-09 16:11:00 2024-01-10 15:56:00 Outpatient X DARRICK ALTAMIRANO [facility] [id number] [facility] 2024-01-09 16:11:00 2024-01-10 15:56:00 Hospital Encounter Olena Del Castillo K Paige Khan, Mohammad A. [facility] 1.2.840.114 350.1.13.10 4.2.7.2.686 [id number] [facility] 2023-12-17 00:00:00 2023-12-17 00:00:00 Transition of Care Jodi Berg BLAYNE RODRIGO BENAVIDES 1.2.840.114 350.1.13.10 4.2.7.2.686 [id number] [facility] 2023-12-14 13:34:00 2023-12-15 11:08:00 Outpatient X TAL BENAVIDEZ [facility] [id number] [facility] 2023-12-14 13:34:00 2023-12-15 11:08:00 Emergency Mj Bryan [facility] 1.2.840.114 350.1.13.10 4.2.7.2.686 [id number] [facility] 2023-12-07 00:00:00 2023-12-07 00:00:00 Outpatient GUSTAVO DELANEY [id number] Cynthia Garcia 2023-12-02 13:05:00 2023-12-03 19:00:00 Outpatient X MOJGAN SIMENTAL [facility] [id number] [facility] 2023-12-02 13:05:00 2023-12-03 19:00:00 Hospital Encounter Connor Renee Wissam Ibrahim [facility] 1.2.840.114 350.1.13.10 4.2.7.2.686 [id number] [facility] 2023-12-01 00:00:00 2023-12-01 10:40:26 Transition of Care Madeline Mckinley 1.2.840.114 350.1.13.10 4.2.7.2.686 [id number] [facility] 2023-11-30 00:00:00 2023-11-30 10:41:56 Transition of Care Madeline Mckinley 1.2.840.114 350.1.13.10 4.2.7.2.686 [id number] [facility] 2023-11-21 21:12:00 2023-11-28 16:01:00 Inpatient X MADELINE PIERRE [facility] [id number] [facility] 2023-11-21 21:12:00 2023-11-28 16:01:00 Hospital Encounter Madeline Pierre Donnell Khan, Rizwan Al Hemyari, Ryder Davis [facility] 1.2840.114 350.1.13.10 4.2.7.2.686 [id number] [facility] 2023-11-26 14:15:00 2023-11-26 14:15:00 Outpatient AARON LEDESMA [id number] Cynthia Garcia 2023-11-23 13:45:00 2023-11-23 14:45:00 Surgery Cris Molina [facility] 1.2.840.114 350.1.13.10 4.2.7.2.686 [id number] [facility] 2023-11-18 00:00:00 2023-11-18 00:00:00 Outpatient EFRA BABCOCK CYNTHIA MTZ [id number] [facility] 2023-11-15 00:00:00 2023-11-15 00:00:00 Outpatient CYNTHIA CYNTHIA [id number] [facility] 2023-11-15 00:00:00 2023-11-15 00:00:00 Outpatient CYNTHIA CYNTHIA [id number] [facility] 2023-11-15 00:00:00 2023-11-15 00:00:00 Outpatient CYNTHIA CYNTHIA [id number] [facility] 2023-11-12 15:15:00 2023-11-12 15:15:00 Outpatient ELAINA GUSTAVO CYNTHIA MTZ [id number] [facility] 2023-11-12 00:00:00 2023-11-12 00:00:00 Outpatient CYNTHIA CYNTHIA [id number] [facility] 2023-11-10 09:30:00 2023-11-10 09:30:00 Outpatient JESUS ALBERTO LIEBERMANUEL CYNTHIA MTZ [id number] [facility] 2023-11-09 00:00:00 2023-11-09 00:00:00 Outpatient ELAINA GUSTAVO CYNTHIA MTZ [id number] [facility] 2023-11-09 00:00:00 2023-11-09 00:00:00 Outpatient MYLA LIEBERMAN [id number] [facility] 2023-11-07 17:51:00 2023-11-07 22:04:00 emergency [facility] [id number] 2023-11-07 17:51:00 2023-11-07 22:04:00 Emergency ER [facility]ANY [facility] [id number] [facility] 2023-11-05 00:00:00 2023-11-05 00:00:00 Outpatient TIFFANY PUENTE [id number] [facility] 2023-11-03 00:00:00 2023-11-03 00:00:00 Outpatient CYNTHIA MTZ [id number] [facility] 2023-10-29 00:00:00 2023-10-29 00:00:00 Outpatient GUSTAVO DELANEY [id number] [facility] 2023-10-26 00:00:00 2023-10-26 00:00:00 Outpatient EFRA BABCOCK [id number] [facility] 2023-10-22 00:00:00 2023-10-22 00:00:00 Outpatient GUSTAVO DELANEY [id number] [facility] 2023-10-16 11:10:00 2023-10-16 11:10:00 Outpatient SIDDHARTH STANFORD [id number] [facility] 2023-10-15 00:00:00 2023-10-15 00:00:00 Outpatient MD CYNTHIA MARLEY [id number] [facility] 2023-10-15 00:00:00 2023-10-15 00:00:00 Outpatient MARGOT GUILLEN [id number] [facility] 2023-10-15 00:00:00 2023-10-15 00:00:00 Outpatient MARGOT GUILLEN [id number] [facility]thia [facility] 2023-10-06 10:45:00 2023-10-06 10:45:00 Outpatient SARAI JULES [id number] [facility] 2023-10-05 11:30:00 2023-10-05 11:30:00 Outpatient GUSTAVO DELANEY [id number] [facility] 2023-10-01 00:00:00 2023-10-01 00:00:00 Outpatient GUSTAVO DELANEY [id number] [facility] 2023-09-30 14:15:00 2023-09-30 14:15:00 Outpatient PREZAGUSTAVO Alexander CYNTHIA [id number] [facility] 2023-09-24 00:00:00 2023-09-24 00:00:00 Outpatient PREZASGUSTAVO CYNTHIA [id number] [facility] 2023-09-23 00:00:00 2023-09-23 00:00:00 Outpatient TIFFANY PUENTE [id number] [facility] 2023-09-22 00:00:00 2023-09-22 00:00:00 Outpatient PREZAGUSTAVO Alexander CYNTHIA [id number] [facility] 2023-09-22 00:00:00 2023-09-22 00:00:00 Outpatient MARGOT GUILLEN CYNTHIA MTZ [id number] [facility] 2023-09-16 00:00:00 2023-09-16 00:00:00 Outpatient PREZAGUSTAVO Alexander CYNTHIA MTZ [id number] [facility] 2023-09-16 00:00:00 2023-09-16 00:00:00 Outpatient PREZASGUSTAVO [facility]THIA [id number] [facility]16 00:00:00 2023-09-16 00:00:00 Outpatient PREZAS, GUSTAVO MTZ CYNTHIA [id number] [facility] 2023-09-14 00:00:00 2023-09-14 00:00:00 Outpatient MARGOT GUILLEN CYNTHIA MTZ [id number] [facility] 2023-09-14 00:00:00 2023-09-14 00:00:00 Outpatient MARGOT GUILLEN CYNTHIA MTZ [id number] [facility] 2023-09-11 11:00:00 2023-09-11 11:00:00 Outpatient ANKUSH LORENZOAN CYNTHIA MTZ [id number] [facility] 2023-09-09 00:00:00 2023-09-09 00:00:00 Outpatient CYNTHIA MTZ [id number] Cynthia [facility] 2023-09-04 00:14:00 2023-09-08 10:51:00 Inpatient EDWARD MENDOZA Neurosurger y [id number] [facility] 2023-09-04 00:14:00 2023-09-08 10:51:00 Hospital Encounter [place] LoyolaPankajan Edward Sosa [facility] [id number] [facility] 2023-09-04 00:14:00 2023-09-08 10:51:00 Hospital Encounter ER oLndon LoyolaPankaj Edward Sosa [facility] [id number] [facility] 2023-09-07 18:41:43 2023-09-07 18:41:43 Outpatient EDWARD MANE [facility] [id number] [facility] 2023-09-03 20:52:00 2023-09-03 23:44:00 emergency [facility] [id number] 2023-09-03 20:52:00 2023-09-03 23:44:00 Emergency ER JUANY [facility] [id number] [facility] 2023-09-02 00:00:00 2023-09-02 00:00:00 Outpatient TIFFANY PUENTE [id number] [facility] 2023-09-01 15:30:00 2023-09-01 15:30:00 Outpatient DEMETRIUS TOBAR [id number] [facility] 2023-08-19 00:00:00 2023-08-19 00:00:00 Outpatient NICOLETTE QUIN MONET [facility] [id number] [facility] 2023-08-13 00:00:00 2023-08-13 00:00:00 Orders Only Quin Monet [facility] [id number] [facility] 2023-08-13 00:00:00 2023-08-13 00:00:00 Orders Only Quin Monet [facility] [id number] [facility] 2023-08-12 13:49:00 2023-08-12 16:12:00 Emergency X MJ BRYAN [facility] ERT [id number] [facility] 2023-08-12 13:49:00 2023-08-12 16:12:00 Emergency Mj Bryan [facility] 1.2.840.114 350.1.13.10 4.2.7.2.686 [id number] [facility] 2023-06-13 03:43:00 2023-06-16 19:45:00 Inpatient ER AYDEE GO [facility] Internal Med [id number] [facility] 2023-06-13 03:43:00 2023-06-16 19:45:00 Hospital Encounter Marianela Burgess Sahar [facility] [id number] [facility] 2023-06-13 03:43:00 2023-06-16 19:45:00 Hospital Encounter ER Marianela Burgess Sahar [facility] [id number] [facility] 2023-06-15 00:00:00 2023-06-15 00:00:00 Orders Only Provider, Not In System [facility] [id number] [facility] 2023-06-15 00:00:00 2023-06-15 00:00:00 Orders Only Provider, Not In System [facility] [id number] [facility] 2023-06-13 16:30:06 2023-06-13 16:30:06 Outpatient AYDEE DICKENS [facility] [id number] [facility] 2023-06-13 00:00:00 2023-06-13 00:00:[address] [facility] [id number] [facility] 2023-06-13 00:00:00 2023-06-13 00:00:00 Travel [facility] [id number] [facility] 2023-06-13 00:00:00 2023-06-13 00:00:[address] [facility] [id number] [facility] 2023-06-13 00:00:00 2023-06-13 00:00:00 Travel [facility] [id number] [facility] 2023-06-12 00:00:00 2023-06-12 00:00:[address] [facility] [id number] [facility] 2023-06-12 00:00:00 2023-06-12 00:00:[address] [facility] [id number] [facility] 2023-05-28 06:45:00 2023-06-04 17:36:00 Inpatient ADAM BRANTLEY [facility] Surgery [id number] [facility] 2023-05-28 06:45:00 2023-06-04 17:36:00 Hospital Encounter Adam Garcia [facility] [id number] [facility] 2023-05-28 06:45:00 2023-06-04 17:36:00 Hospital Encounter Doni Brantleyin [facility] [id number] [facility] 2023-06-01 09:10:00 2023-06-01 13:00:00 Anesthesia Event IsmaelHarry chaudhry Mujtaba [facility] [id number] [facility] 2023-06-01 09:10:00 2023-06-01 13:00:00 Anesthesia Event MercedezHarry Mujtaba [facility] [id number] [facility] 2023-06-01 09:00:00 2023-06-01 11:30:[address] [facility] [id number] [facility] 2023-06-01 09:00:00 2023-06-01 11:30:[address] [facility] [id number] [facility] 2023-06-01 09:47:57 2023-06-01 09:47:57 [facility] [id number] [facility] 2023-06-01 09:40:34 2023-06-01 09:40:34 Outpatient ADAM BRANTLEY [facility] [id number] [facility] 2023-05-31 09:25:55 2023-05-31 23:59:00 [facility] [id number] [facility] 2023-05-31 09:00:00 2023-05-31 23:59:00 Hospital Encounter Adam Garcia [facility] [id number] [facility] 2023-05-31 09:00:00 2023-05-31 23:59:00 Hospital Encounter Adam Garcia [facility] [id number] [facility] 2023-05-28 18:15:29 2023-05-28 18:15:29 Outpatient ADAM BRANTLEY [facility] [id number] [facility] 2023-05-28 08:30:00 2023-05-28 11:54:[address] [facility] [id number] [facility] 2023-05-28 08:30:00 2023-05-28 11:54:[address] [facility] [id number] [facility] 2023-05-28 11:41:14 2023-05-28 11:41:14 Outpatient ADAM BRANTLEY [facility] [id number] [facility] 2023-05-28 08:30:00 2023-05-28 11:00:[address] [facility] [id number] [facility] 2023-05-28 08:30:00 2023-05-28 11:00:[address] [facility] [id number] [facility] 2023-05-28 10:00:47 2023-05-28 10:00:47 Outpatient ADAM BRANTLEY [facility] [id number] [facility] 2023-05-28 00:00:00 2023-05-28 00:00:00 Travel [facility] [id number] [facility] 2023-05-28 00:00:00 2023-05-28 00:00:00 Travel [facility] [id number] [facility] 2023-05-26 09:00:00 2023-05-26 09:00:00 Hospital Encounter Adam Garcia [facility] [id number] [facility] 2023-05-26 00:00:00 2023-05-26 00:00:00 Outpatient [facility] [id number] [facility] 2023-05-26 00:00:00 2023-05-26 00:00:00 Outpatient [facility] [id number] [facility] 2023-05-26 00:00:00 2023-05-26 00:00:00 Travel [facility] [id number] [facility] 2023-05-13 11:43:03 2023-05-13 11:43:03 Outpatient [facility] [id number] 2023-05-12 00:00:00 2023-05-12 00:00:00 Orders Only Adam Garcia [facility] [id number] [facility] 2023-05-08 14:11:21 2023-05-08 14:11:21 Outpatient SFA SFA 1020 Adria Martínez 2023-03-29 19:25:00 2023-04-02 20:48:00 Inpatient ER THOMAS LOZOYA [facility] Neurology [id number] [facility] 2023-03-29 19:25:00 2023-04-02 20:48:00 Hospital Encounter ER Connie Davey Shireen Kulkarni, Mrinalini Z [facility] [id number] [facility] 2023-03-31 08:32:56 2023-03-31 00:00:00 Inpatient ER MARIAH ALDRIDGE SLE SLE [id number] [facility] 2023-03-30 10:24:12 2023-03-30 23:59:00 Outpatient [facility] [id number] [facility] 2023-03-30 09:40:00 2023-03-30 23:59:00 Hospital Encounter Connie Davey [facility] [id number] [facility] 2023-03-30 13:46:20 2023-03-30 13:46:20 [facility] [id number] [facility] 2023-03-30 13:46:14 2023-03-30 13:46:14 Outpatient ER MARIAH ALDRIDGE [facility] [id number] [facility] 2023-03-30 10:24:04 2023-03-30 10:24:04 Outpatient ER CONNIE DAVEY [facility] [id number] [facility] 2023-03-30 00:00:00 2023-03-30 00:00:[address] [facility] [id number] [facility] 2023-03-30 00:00:00 2023-03-30 00:00:00 Travel [facility] [id number] [facility] 2022-12-11 08:56:00 2022-12-11 15:29:00 Emergency X Alfonso ALVARADO [facility] ERT [id number] [facility] 2022-12-11 08:56:00 2022-12-11 15:29:00 Emergency Alfonso Alvarado [facility] 1..840.114 350.1.13.10 4.2.7.2.686 [id number] [facility] 2022-11-17 17:25:00 2022-11-18 01:19:00 Emergency X RITCHIE WARREN [facility] ERT [id number] [facility] 2022-11-17 17:25:00 2022-11-18 01:19:00 Emergency Ritchie Warren [facility] 1..840.114 350.1.13.10 4.2.7.2.686 [id number] [facility] 2022-08-28 00:00:00 2022-08-28 00:00:00 Patient Outreach Margot Beckman 1.2.840.114 350.1.13.10 4.2.7.2.686 [id number] [facility] 2022-08-20 00:00:00 2022-08-20 00:00:00 Patient Outreach Margot Beckman 1.2.840.114 350.1.13.10 4.2.7.2.686 [id number] [facility] 2022-08-02 17:30:00 2022-08-03 14:29:00 Outpatient ER PARRISH DIANE [facility] Neurology [id number] [facility] 2022-08-02 17:30:00 2022-08-03 14:29:00 Hospital Encounter ER Halima Mendoza Kinjal M Ibe, Chimkama Ngozi Cynthia [facility] [id number] [facility] 2022-08-03 00:00:00 2022-08-03 00:00:[address] [facility] [id number] [facility] 2022-08-02 00:00:00 2022-08-02 00:00:00 Travel [facility] [id number] [facility] 2022-07-31 11:42:00 2022-08-01 21:48:00 Inpatient X DAMI LOWRY [facility] SHEA [id number] [facility] 2022-07-31 11:42:00 2022-08-01 21:48:00 Hospital Encounter Megan Rondon Yaman [facility] 1.2.840.114 350.1.13.10 4.2.7.2.686 [id number] [facility] 2022-08-01 00:00:00 2022-08-01 00:00:00 Transition of Care Maria Teresa Nicole 1..840.114 350.1.13.10 4.2.7.2.686 [id number] [facility] 2022-07-28 14:41:38 2022-07-28 14:41:38 Outpatient [facility] 9 Adria Martínez 2022-07-28 00:00:00 2022-07-28 00:00:00 Outpatient Visit [id number] 2022-07-24 13:24:40 2022-07-24 13:24:40 Outpatient [facility] [id number] Adria Martínez 2022-05-23 14:51:01 2022-05-23 14:51:01 Outpatient [facility] 1104 Adria Martínez 2022-05-23 00:00:00 2022-05-23 00:00:00 Outpatient Visit [id number] 2022-05-04 20:22:00 2022-05-08 14:44:00 Outpatient X CHANTEL BOJORQUEZ PABLO [facility] [id number] [facility] 2022-05-04 20:22:00 2022-05-08 14:44:00 Emergency JonorBrandyn Chantel [facility] 1..840.114 350.1.13.10 4.2.7.2.686 [id number] [facility] 2022-04-13 13:06:00 2022-04-15 15:00:00 Inpatient X SELINA MARTINES [facility]ARDINO [id number] [facility] 2022-04-13 13:06:00 2022-04-15 15:00:00 Hospital Encounter Sapna Vargas Muhammad Zeeshan Chhabra, [facility] 1..114 350.1.13.10 4.2.7.2.686 [id number] [facility] 2022-02-19 10:20:00 2022-02-19 10:30:00 Imm/Inj Visit Vaccine, Tupman Dangelo Pak [facility] 1..114 350.1.13.10 4.2.7.2.686 [id number] [facility] 2022-02-19 10:20:00 2022-02-19 10:20:00 Outpatient JOSE MENDOZA [facility] [id number] [facility] 2021-11-23 15:07:00 2021-11-23 17:03:00 Emergency X WILLIAMS VIRK [facility] ERT [id number] [facility] 2021-11-23 15:07:00 2021-11-23 17:03:00 Emergency Rondon Megan Williams Virk [facility] 1..114 350.1.13.10 4.2.7.2.686 [id number] [facility] 2021-11-21 09:40:00 2021-11-21 09:40:00 Outpatient Cory [facility] [id number] [facility] 2021-05-24 09:30:00 2021-05-24 09:30:00 Outpatient JOSE MENDOZA [facility] [id number] [facility] 2021-05-24 08:47:51 2021-05-24 08:57:51 Imm/Inj Visit Vaccine, Tupman Dangelo Pak Lallie [facility] 1.2840.114 350.1.13.10 4.2.7.2.686 [id number] [facility] 2021-05-03 09:40:00 2021-05-03 09:59:35 Outpatient R OJSE PAK [facility] [id number] [facility] 2021-05-03 09:17:43 2021-05-03 09:59:35 Imm/Inj Visit Santos, Tupman Pedtristan [place] Jose [facility] 1.840.114 350.1.13.10 4.2.7.2.686 [id number] [facility] 2021-04-16 00:00:00 2021-04-16 00:00:00 Orders Only Doctor Unassigned, [place] [facility] 1.2840.114 350.1.13.10 4.2.7.2.686 [id number] [facility] 2021-03-17 00:00:00 2021-03-17 00:00:00 Telephone Miky Nava [facility] 1.2840.114 350.1.13.10 4.2.7.2.686 [id number] [facility] 2021-03-16 20:08:00 2021-03-16 23:24:00 Emergency Fabrice Chakraborty [facility] 1.2840.114 350.1.13.10 4.2.7.2.686 [id number] [facility] 2021-03-14 18:59:34 2021-03-14 20:19:13 Urgent Care Lydia Desouza Unknown, Attending [facility] 1.2840.114 350.1.13.10 4.2.7.2.686 [id number] [facility] 2021-03-14 19:00:00 2021-03-14 19:00:00 Outpatient R UNKNOWN, ATTENDING [facility] [id number] [facility] 2021-02-19 10:49:00 2021-02-19 14:48:00 Emergency Estefania Monroy [facility] 1.2.840.114 350.1.13.10 4.2.7.2.686 [id number] [facility] 2019-03-09 00:00:00 2019-03-09 00:00:00 Yehuda Zimmerman [facility] 1.2.840.114 350.1.13.10 4.2.7.2.686 [id number] [facility] 2019-03-09 00:00:00 2019-03-09 00:00:00 [facility] 1.2.840.114 350.1.13.10 4.2.7.2.686 [id number] Results Test Description Test Time Test Comments Results Result Co mments Source [facility] (NA, K, CL, CO2, GLUCOSE, BUN, CREATININE, CA)2024-04-03 02:26:01* Test Item Value Reference Range Interpretation Comme nts NA (test code = 3819740767) 136 mmol/L 135-145 K (test code = 5537937184) 3.2 mmol/L 3.5-5.0 L CL (test code = 3824651126) 101 mmol/L 98-108 CO2 TOTAL (test code = 9313500113) 23 mmol/L 23-31 AGAP (test code = 3224890781) 12 2-16 BUN (test code = 1235249578) 4 mg/dL 7-23 L GLUCOSE (test code = 4589029504) 165 mg/dL 70-110 H CREATININE (test code = 2160-0) 0.67 mg/dL 0.50-1.04 CALCIUM (test code = 6561443513) 8.5 mg/dL 8.6-10.6 L eGFR (test code = 52386-5) 105.3 mL/min/1.73m2 CKD-EPI eGFR (2020). Assuming creatinine has been stable day-to-day for at least three months, the eGFR indicates Category G1 (>= 90 mL/min/1.73 m2) Lab Interpretation (test code = 41883-2) Abnormal [facility] with [id number] 02:19:04* Test Item Value Reference Range Interpretation [...] g/dL 31.6-35.1 L RDW-SD (test code = 45274-0) 53.9 fL 39.0-49.9 H RDW-CV (test code = 788-0) 18.2 % 12.0-15.5 H PLT (test code = 777-3) 458 166-358 H MPV (test code = 54168-3) 8.6 fL 9.5-12.9 L NRBC/100 WBC (test code = 0039551770) 0.0 0.0-10.0 NRBC x10^3 (test code = 2930700851) See_Comment [Automated Adapta ge] The system which generated this result transmitted reference range: 10*3/?L. The reference range was not used to interpret this result as normal/abnormal. GRAN MAT (NEUT) % (test code = 770-8) 62.8 % IMM GRAN % (test code = 2713707579) 0.40 % LYMPH % (test code = 736-9) 28.0 % MONO % (test code = 5905-5) 6.5 % EOS % (test code = 713-8) 1.3 % BASO % (test code = 706-2) 1.0 % GRAN MAT x10^3(ANC) (test code = 7010001162) 4.36 10*3/uL 1.88-7.09 IMM GRAN x10^3 (test code = 2517604661) 0.03 10*3/uL 0.00-0.06 LYMPH x10^3 (test code = 731-0) 1.94 10*3/uL 1.32-3.29 MONO x10^3 (test code = 742-7) 0.45 10*3/uL 0.33-0.92 EOS x10^3 (test code = 711-2) 0.09 10*3/uL 0.03-0.39 BASO x10^3 (test code = 704-7) 0.07 10*3/uL 0.01-0.07 Lab Interpretation (test code = 88060-8) Abnormal [facility] Whole [id number] 02:05:20* Test Item Value Reference Range Interpretation Comme nts LACTIC ACID (test code = 0667311583) 2.61 mmol/L 0.50-2.20 H Lab Interpretation (test cod e = 05077-5) Abnormal [facility] [id number] 04:25:23* Test Item Value Reference Range Interpretation Comme nts TROPONIN I (test code = 9848453881) 0.004 ng/mL <=0.034 LYNDSAY (test code = [...] of biotin. Lab Interpretation (test code = 11850-1) Normal [facility]. Metabolic Panel (87482)2024-01-13 04:13:41* Test Item Value Reference Range Interpretation Comme nts NA (test code = 5624728879) 140 mmol/L 135-145 K (test code = 2288627334) 3.7 mmol/L 3.5-5.0 CL (test code = 7578904188) 103 mmol/L 98-108 CO2 TOTAL (test code = 2244083481) 25 mmol/L 23-31 AGAP (test code = 9193675065) 12 2-16 BUN (test code = 4850845771) 12 mg/dL 7-23 GLUCOSE (test code = 5943192455) 143 mg/dL 70-110 H CREATININE (test code = 2160-0) 0.91 mg/dL 0.50-1.04 TOTAL BILI (test code = 7657466007) 0.4 mg/dL 0.1-1.1 CALCIUM (test code = 8671202021) 9.0 mg/dL 8.6-10.6 T PROTEIN (test code = 2898030651) 7.7 g/dL 6.3-8.2 ALBUMIN (test code = 7625617973) 4.2 g/dL 3.5-5.0 ALK PHOS (test code = 9038216060) 93 U/L 34-122 ALTv (test code = 1742-6) 9 U/L 5-35 AST(SGOT) (test code = 5352943437) 18 U/L 13-40 eGFR (test code = 66862-4) 76.5 mL/min/1.73m2 CKD-EPI eGFR (2020). Assuming creatinine has been stable day-to-day for at least three months, the eGFR indicates Category G2 (60 - 89 mL/min/1.73 m2) Lab Interpretation (test code = 45465-1) Abnormal [facility] with [id number] 03:58:19* Test Item Value Reference Range Interpretation [...] g/dL 31.6-35.1 L RDW-SD (test code = 01708-2) 59.0 fL 39.0-49.9 H RDW-CV (test code = 788-0) 18.7 % 12.0-15.5 H PLT (test code = 777-3) 394 166-358 H MPV (test code = 13636-1) 8.5 fL 9.5-12.9 L NRBC/100 WBC (test code = 6689599713) 0.0 0.0-10.0 NRBC x10^3 (test code = 5970021572) See_Comment [Automated messa ge] The system which generated this result transmitted reference range: 10*3/?L. The reference range was not used to interpret this result as normal/abnormal. GRAN MAT (NEUT) % (test code = 770-8) 60.6 % IMM GRAN % (test code = 9487587148) 1.40 % LYMPH % (test code = 736-9) 26.9 % MONO % (test code = 5905-5) 8.7 % EOS % (test code = 713-8) 1.8 % BASO % (test code = 706-2) 0.6 % GRAN MAT x10^3(ANC) (test code = 7429840724) 5.14 10*3/uL 1.88-7.09 IMM GRAN x10^3 (test code = 5821288358) 0.12 10*3/uL 0.00-0.06 H LYMPH x10^3 (test code = 731-0) 2.28 10*3/uL 1.32-3.29 MONO x10^3 (test code = 742-7) 0.74 10*3/uL 0.33-0.92 EOS x10^3 (test code = 711-2) 0.15 10*3/uL 0.03-0.39 BASO x10^3 (test code = 704-7) 0.05 10*3/uL 0.01-0.07 Lab Interpretation (test code = 20892-5) Abnormal [facility] (TTE)2024-01-10 16:40:03* Test Item Value Reference Range Interpretation Comme nts Height (test code = 8990039738) 62 in Weight (test code = 6231203359) 200 lbs Systolic BP (test code = 7208236510) 90 mmHg Diastolic BP (test code = 0266769907) 66 mmHg Heart Rate (test code = 7732543550) 69 bpm BSA (test code = 2190238337) 1.91 m2 LVOT diameter (test code = 7343132908) 2.13 cm LVOT area (test code = 5312959776) 3.60 cm2 LA size (test code = 8309548295) 3.5 cm LAV(MOD-sp4) (test code = 3944940879) 55.70 mL E wave decelartion time (test code = 7238739729) 0.12 s MV stenosis pressure 1/2 time (test code = 6291411865) 35.0 ms MV Peak A Evette (test code = 5827235068) 117.0 cm/s MV Peak E Evette (test code = 2414105232) 94.3 cm/s E/A ratio (test code = 0567647571) 0.81 ratio MV E/e' septal (test code = 2571693527) 10.2 cm/s LVOT stroke volume (test code = 0742332574) 59.50 cm3 LVOT peak evetet (test code = 2377220829) 99.8 cm/s LVOT mn grad (test code = 4722618332) 1.9 mmHg AV LVOT peak gradient (test code = 3986322225) 4.0 mmHg LVOT peak VTI (test code = 8231346854) 16.7 cm LV V1 mean (test code = 4414029196) 64.40 cm/s Aortic valve mean velocity (test code = 3241960348) 155.3 cm/s Ao peak evette (test code = 5750683087) 222.6 cm/s Ao VTI (test code = 7540140837) 33.6 cm AV area by cont VTI (test code = 5485340824) 1.8 cm2 AV area peak evette (test code = 0429674278) 1.6 cm2 Ao max PG (test code = 0602207977) 19.80 mm[Hg] AV peak gradient (test code = 7980657185) 19.8 mmHg AV valve area (test code = 5359901602) 1.77 cm2 AV mean gradient (test code = 5808946399) 10.6 mmHg AV regurgitation pressure 1/2 time (test code = 6379341161) 651.6 ms AI dec slope (test code = 6098976949) 180.60 cm/s2 AI max evette (test code = 0158284920) 401.80 cm/s AI max PG (test code = 9976864209) 64.60 mm[Hg] LVIDD (test code = 1008269585) 4.90 cm Left Ventricular End Diastolic Volume by Teichholz Method (test code = 6369521) 114.6 mL IVS (test code = 8748265418) 1.17 cm Interventricular Septum Diastolic Thickness by 2D (test code = 0616848) 1.17 cm LVPWD (test code = 5449441122) 1.17 cm PW (test code = 4348516587) 1.17 cm 0.6-1.1 EF(Teich) (test code = 3339550707) 20.70 % LVIDS (test code = 6463744051) 4.50 cm Left Ventricular End Systolic Volume by Teichholz Method (test code = 9166620) 90.9 mL FS (test code = 0886426191) 9 % EF - 2D (test code = 61411445) 20.70 % Radiology Study observation (narrative) (test code = 15881-3) LYNDSAY (test code = LYNDSAY) ?Left?Ventricle: Left [...] Optison ultrasound enhancing agent used. [facility] Whole Xhwwe3840-88-17 02:02:28* Test Item Value Reference Range Interpretation Comme nts LACTIC ACID (test code = 3954660114) 1.36 mmol/L 0.50-2.20 Lab Interpretation (test cod e = 62611-7) Normal [facility]ULMONARY [id number] 01:16:45CTA CHEST WITH IV CONTRAST ORDERING PHYSICIAN: [...] hardware in the lower cervical spine.[facility] 1 [id number] 23:07:58Exam: Chest (1 View), 01/09/2024 4:15 PM. Ordering Physician: OLENA DEL CASTILLO. History: Chest Pain. Technique: One view of the chest. Comparison: 12/14/2023. Findings: Cardiac silhouette is mildly enlarged. There is no pneumothorax. There isno consolidation or pleural effusion. Pleural and diaphragmatic contoursare normal. Calcified granuloma is seen in the left upper lobe. Changes ofanterior cervical discectomy and fusion are seen.[facility] HospitalTROPONIN [id number] 22:51:19* Test Item Value Reference Range Interpretation Comme nts TROPONIN I (test code = 3226236748) 0.006 ng/mL <=0.034 LYNDSAY (test code = [...] of biotin. Lab Interpretation (test code = 36301-9) Normal [facility] HospitalN-TERMINAL DFC-[id number] 22:48:38* Test Item Value Reference Range Interpretation Comme nts NT-proBNP (test code = 55802-0) 877 pg/mL <=125 LYNDSAY (test code = LYNDSAY) Result Indeterminate-Consid er causes of NT-proBNP elevation other than Heart failure such as acute coronary syndrome, pulmonary embolism, pulmonary hypertension, sepsis, stroke, and renal dysfunction. Lab Interpretation (test code = 53397-8) [facility] (70830)2024-01-09 22:42:20* Test Item Value Reference Range Interpretation Comme nts NA (test code = 3096693570) 137 mmol/L 135-145 K (test code = 1415279404) 3.8 mmol/L 3.5-5.0 CL (test code = 2340474636) 104 mmol/L 98-108 CO2 TOTAL (test code = 4389214437) 25 mmol/L 23-31 AGAP (test code = 1397931302) 8 2-16 BUN (test code = 5985218808) 7 mg/dL 7-23 GLUCOSE (test code = 8020823116) 96 mg/dL 70-110 CREATININE (test code = 2160-0) 0.60 mg/dL 0.50-1.04 TOTAL BILI (test code = 7546918444) 0.4 mg/dL 0.1-1.1 CALCIUM (test code = 7836671356) 8.7 mg/dL 8.6-10.6 T PROTEIN (test code = 7393948949) 7.0 g/dL 6.3-8.2 ALBUMIN (test code = 7078421066) 3.9 g/dL 3.5-5.0 ALK PHOS (test code = 2714269578) 101 U/L 34-122 ALTv (test code = 1742-6) 7 U/L 5-35 AST(SGOT) (test code = 4014064428) 20 U/L 13-40 eGFR (test code = 78326-5) 108.8 mL/min/1.73m2 CKD-EPI eGFR (20 21). Assuming creatinine has been stable day-to-day for at least three months, the eGFR indicates Category G1 (>= 90 mL/min/1.73 m2) [facility] HospitalD-[id number] 22:28:57* Test Item Value Reference Range Interpretation Comments D-DIMER (test code = 6325871139) 0.87 See_Comment H [Automated message] The system [...] a diagnosis. Lab Interpretation (test code = 22850-2) Abnormal [facility] acute hospital WITH [id number] 22:09:01* Test Item Value Reference Range Interpretation [...] g/dL 31.6-35.1 L RDW-SD (test code = 99252-1) 58.1 fL 39.0-49.9 H RDW-CV (test code = 788-0) 18.6 % 12.0-15.5 H PLT (test code = 777-3) 312 166-358 MPV (test code = 50594-0) 8.3 fL 9.5-12.9 L NRBC/100 WBC (test code = 9262266767) 0.0 0.0-10.0 NRBC x10^3 (test code = 4727856115) See_Comment [Automated Adapta ge] The system which generated this result transmitted reference range: 10*3/?L. The reference range was not used to interpret this result as normal/abnormal. GRAN MAT (NEUT) % (test code = 770-8) 60.1 % IMM GRAN % (test code = 5266327841) 0.70 % LYMPH % (test code = 736-9) 27.3 % MONO % (test code = 5905-5) 10.1 % EOS % (test code = 713-8) 1.2 % BASO % (test code = 706-2) 0.6 % GRAN MAT x10^3(ANC) (test code = 2885174973) 5.12 10*3/uL 1.88-7.09 IMM GRAN x10^3 (test code = 1494456178) 0.06 10*3/uL 0.00-0.06 LYMPH x10^3 (test code = 731-0) 2.33 10*3/uL 1.32-3.29 MONO x10^3 (test code = 742-7) 0.86 10*3/uL 0.33-0.92 EOS x10^3 (test code = 711-2) 0.10 10*3/uL 0.03-0.39 BASO x10^3 (test code = 704-7) 0.05 10*3/uL 0.01-0.07 Lab Interpretation (test code = 46934-2) Abnormal [facility] GLUCOSE (AUTOMATED)2023-12-15 12:45:21* Test Item Value Reference Range Interpretation Comme nts POCT GLU (test code = 7117403341) 144 mg/dL 70-110 H Lab Interpretation (test cod e = 49062-8) Abnormal [facility] HospitalThyroid Stimulating Lydvpsj2795-83-91 01:46:59 * Test Item Value Reference Range Interpretation Comme nts TSH (test code = 9077827793) 1.14 0.45-4.70 Lab Interpretation (test cod e = 14767-4) Normal [facility] HospitalFR [id number] 01:33:00* Test Item Value Reference Range Interpretation Comme nts FREE T3 (test code = 3368035764) 3.68 pg/mL 2.77-5.27 Lab Interpretation (test cod e = 70234-4) Normal [facility] GLUCOSE (AUTOMATED)2023-12-15 00:57:48* Test Item Value Reference Range Interpretation Comme nts POCT GLU (test code = 6525355396) 131 mg/dL 70-110 H Lab Interpretation (test cod e = 99681-3) Abnormal [facility] HospitalTroponin [id number] 21:45:52* Test Item Value Reference Range Interpretation Comme nts TROPONIN I (test code = 2197514497) 0.009 ng/mL <=0.034 LYNDSAY (test code = [...] of biotin. Lab Interpretation (test code = 88201-5) Normal [facility] (04380)2023-12-14 20:19:49* Test Item Value Reference Range Interpretation Comme nts NA (test code = 0759134961) 138 mmol/L 135-145 K (test code = 4160080669) 3.5 mmol/L 3.5-5.0 CL (test code = 3042180459) 108 mmol/L 98-108 CO2 TOTAL (test code = 7749553651) 24 mmol/L 23-31 AGAP (test code = 8719207268) 6 2-16 BUN (test code = 0802859997) 7 mg/dL 7-23 GLUCOSE (test code = 7669015686) 96 mg/dL 70-110 CREATININE (test code = 2160-0) 0.51 mg/dL 0.50-1.04 TOTAL BILI (test code = 1438232222) 0.4 mg/dL 0.1-1.1 CALCIUM (test code = 3810114046) 8.6 mg/dL 8.6-10.6 T PROTEIN (test code = 9170158767) 6.8 g/dL 6.3-8.2 ALBUMIN (test code = 7674241133) 3.8 g/dL 3.5-5.0 ALK PHOS (test code = 9853659802) 107 U/L 34-122 ALTv (test code = 1742-6) 13 U/L 5-35 AST(SGOT) (test code = 8220149991) 28 U/L 13-40 eGFR (test code = 29674-8) 113.2 mL/min/1.73m2 CKD-EPI eGFR (20 21). Assuming creatinine has been stable day-to-day for at least three months, the eGFR indicates Category G1 (>= 90 mL/min/1.73 m2) [facility]Trop[facility] [id number] 20:15:27* Test Item Value Reference Range Interpretation Comme nts TROPONIN I (test code = 8733640887) 0.009 ng/mL <=0.034 LYNDSAY (test code = [...] of biotin. Lab Interpretation (test code = 09001-1) Normal [facility] Vhh-[id number] 20:12:51* Test Item Value Reference Range Interpretation Comme nts NT-proBNP (test code = 98779-3) 2250 pg/mL <=125 H LYNDSAY (test code = LYNDSAY) Positive: Heart Failure Likely Lab Interpretation (test code = 61770-5) Abnormal [facility]XR CHEST 1 [id number] 20:00:17EXAM: XR CHEST 1 VW COMPARISON: 12/02/2023 HISTORY: 53 years-old Female; shortness of breath FINDINGS: Lungs: The lung volumes are normal. Left upper lung calcified granuloma. Nofocal opacities. No pneumothorax. No pleural effusion. Heart/Mediastinum: The cardiac silhouette appears normal. Bones andsoft tissues: No acute osseous findings are detected.Redemonstrated ACDF projecting over the lower cervical spine.[facility] HospitalD-[id number] 19:45:05* Test Item Value Reference Range Interpretation Comments D-DIMER (test code = 0412452339) 1.33 See_Comment H [Automated message] The system [...] a diagnosis. Lab Interpretation (test code = 63653-1) Abnormal [facility] HospitalCbc with [id number] 19:39:29* Test Item Value Reference Range Interpretation [...] g/dL 31.6-35.1 L RDW-SD (test code = 76753-8) 70.2 fL 39.0-49.9 H RDW-CV (test code = 788-0) 21.6 % 12.0-15.5 H PLT (test code = 777-3) 259 166-358 MPV (test code = 07558-3) 8.7 fL 9.5-12.9 L NRBC/100 WBC (test code = 4692726568) 0.0 0.0-10.0 NRBC x10^3 (test code = 3280868194) See_Comment [Automated messa ge] The system which generated this result transmitted reference range: 10*3/?L. The reference range was not used to interpret this result as normal/abnormal. GRAN MAT (NEUT) % (test code = 770-8) 57.7 % IMM GRAN % (test code = 3187652969) 0.40 % LYMPH % (test code = 736-9) 30.2 % MONO % (test code = 5905-5) 9.9 % EOS % (test code = 713-8) 0.8 % BASO % (test code = 706-2) 1.0 % GRAN MAT x10^3(ANC) (test code = 4371528893) 4.17 10*3/uL 1.88-7.09 IMM GRAN x10^3 (test code = 6053561418) 0.03 10*3/uL 0.00-0.06 LYMPH x10^3 (test code = 731-0) 2.19 10*3/uL 1.32-3.29 MONO x10^3 (test code = 742-7) 0.72 10*3/uL 0.33-0.92 EOS x10^3 (test code = 711-2) 0.06 10*3/uL 0.03-0.39 BASO x10^3 (test code = 704-7) 0.07 10*3/uL 0.01-0.07 Lab Interpretation (test code = 56502-7) [facility] 21:30:58* Test Item Value Reference Range Interpretation Comme nts POCT GLU (test code = 1781155170) 102 mg/dL 70-110 Lab Interpretation (test cod e = 91441-2) Normal [facility] Metabolic Panel (NA, K, CL, CO2, GLUCOSE, BUN, CREATININE, CA)2023-12-03 18:22:31* Test Item Value Reference Range Interpretation Comme nts NA (test code = 3377009072) 135 mmol/L 135-145 K (test code = 2100294753) 3.9 mmol/L 3.5-5.0 CL (test code = 4345093689) 103 mmol/L 98-108 CO2 TOTAL (test code = 6649656791) 29 mmol/L 23-31 AGAP (test code = 7327861047) 3 2-16 BUN (test code = 3570922843) 12 mg/dL 7-23 GLUCOSE (test code = 5316363390) 85 mg/dL 70-110 CREATININE (test code = 2160-0) 0.63 mg/dL 0.50-1.04 CALCIUM (test code = 2535321642) 8.7 mg/dL 8.6-10.6 eGFR (test code = 47358-2) 107.6 mL/min/1.73m2 CKD-EPI eGFR (20 21). Assuming creatinine has been stable day-to-day for at least three months, the eGFR indicates Category G1 (>= 90 mL/min/1.73 m2) [facility] GLUCOSE (AUTOMATED)2023-12-03 16:52:56* Test Item Value Reference Range Interpretation Comme nts POCT GLU (test code = 1584696917) 98 mg/dL 70-110 Lab Interpretation (test cod e = 37352-9) Normal [facility] GLUCOSE (AUTOMATED)2023-12-03 13:01:11* Test Item Value Reference Range Interpretation Comme nts POCT GLU (test code = 8344545911) 102 mg/dL 70-110 Lab Interpretation (test cod e = 33586-6) Normal [facility] Metabolic Panel (NA, K, CL, CO2, GLUCOSE, BUN, CREATININE, CA)2023-12-03 10:22:08* Test Item Value Reference Range Interpretation Comme nts NA (test code = 5015562112) 138 mmol/L 135-145 K (test code = 4623501573) 3.2 mmol/L 3.5-5.0 L CL (test code = 6864665297) 105 mmol/L 98-108 CO2 TOTAL (test code = 1600569900) 26 mmol/L 23-31 AGAP (test code = 9824375773) 7 2-16 BUN (test code = 3140181040) 11 mg/dL 7-23 GLUCOSE (test code = 9153657831) 96 mg/dL 70-110 CREATININE (test code = 2160-0) 0.61 mg/dL 0.50-1.04 CALCIUM (test code = 4429488265) 8.6 mg/dL 8.6-10.6 eGFR (test code = 27034-8) 108.4 mL/min/1.73m2 CKD-EPI eGFR (2020). Assuming creatinine has been stable day-to-day for at least three months, the eGFR indicates Category G1 (>= 90 mL/min/1.73 m2) Lab Interpretation (test code = 62927-3) [facility]normal [facility] 10:22:08* Test Item Value Reference Range Interpretation Comme nts MAGNESIUM (test code = 4519448788) 1.9 mg/dL 1.7-2.4 Lab Interpretation (test cod e = 59593-3) Normal [facility] HospitalHepatic Function Panel (66311) (ALB,T.PRO,BILI T,BU/BC,ALT,AST,ALK PHOS)2023-12-03 10:22:08* Test Item Value Reference Range Interpretation Comme nts TOTAL BILI (test code = 9688500189) 0.5 mg/dL 0.1-1.1 BILI UNCON (test code = 1450940542) 0.2 mg/dL 0.1-1.1 BILI CONJ (test code = 6320515576) 0.0 mg/dL 0.0-0.3 T PROTEIN (test code = 4534503129) 6.7 g/dL 6.3-8.2 ALBUMIN (test code = 8968019105) 3.7 g/dL 3.5-5.0 ALK PHOS (test code = 7469635963) 135 U/L 34-122 H ALTv (test code = 1742-6) 26 U/L 5-35 AST(SGOT) (test code = 8202018019) 24 U/L 13-40 Lab Interpretation (test cod e = 53666-3) Abnormal [facility] HospitalAC Panel 21 + Lactic Oyup2528-25-38 02:00:25* Test Item Value Reference Range Interpretation Comme nts PH (test code = 7950547416) 7.40 7.32-7.42 PCO2 NOEMI (test code = 0023511717) 40 41-51 L PO2 NOEMI (test code = 5065515431) 34 25-40 HCO3 NOEMI (test code = 1843869620) 24 24-28 AC VBE(BEAKER) (test code = 9221780654) -0.8 mEq/L THB NOEMI (test code = 2880593973) 9.3 g/dL 12.0-16.0 L %O2HB NOEMI (test code = 6877910637) 57.9 % 52.0-63.0 %COHB NOEMI (test code = 4365394794) 1.1 % 0.0-1.5 %METHB NOEMI (test code = 5448428793) 0.3 % 0.4-1.5 L VOL%O2 NOEMI (test code = 8182653121) 7.6 % 6.0-12.0 NA (test code = 5173222457) 139 mmol/L 135-145 K+ (test code = 3931799682) 3.5 mmol/L 3.5-5.0 AC CA IONZ (test code = 1904243261) 4.50 mg/dL 4.50-5.30 GLUCOSE (test code = 7127722991) 88 mg/dL 70-110 LACTIC ACID (test code = 4080815364) 1.63 mmol/L 0.50-2.20 QUES Lab Interpretation (test cod e = 12511-0) Abnormal [facility] CHEST PULMONARY VNPURNBLP7396-18-50 19:47:28HISTORY: Chest pain, rule out P.E. TECHNIQUE: [...] adenoma,essentially unchanged since November 2022 study.[facility] HospitalTroponin A4519-15-12 19:38:49* Test Item Value Reference Range Interpretation Comme nts TROPONIN I (test code = 7896460505) 0.020 ng/mL <=0.034 LYNDSAY (test code = [...] of biotin. Lab Interpretation (test code = 63984-8) Normal [facility] HospitalN-Terminal Slk-Due4348-54-15 19:37:29* Test Item Value Reference Range Interpretation Comme nts NT-proBNP (test code = 31296-4) 3420 pg/mL <=125 H LYNDSAY (test code = LYNDSAY) Positive: Heart Failure Likely Lab Interpretation (test code = 92048-6) Abnormal [facility] with Cair6782-68-16 19:28:47* Test Item Value Reference Range Interpretation [...] g/dL 31.6-35.1 L RDW-SD (test code = 78598-9) 68.9 fL 39.0-49.9 H RDW-CV (test code = 788-0) 22.6 % 12.0-15.5 H PLT (test code = 777-3) 379 166-358 H MPV (test code = 82380-6) 9.1 fL 9.5-12.9 L NRBC/100 WBC (test code = 2415889145) 0.0 0.0-10.0 NRBC x10^3 (test code = 1147403481) See_Comment [Automated messa ge] The system which generated this result transmitted reference range: 10*3/?L. The reference range was not used to interpret this result as normal/abnormal. GRAN MAT (NEUT) % (test code = 770-8) 73.5 % IMM GRAN % (test code = 2318135771) 1.70 % LYMPH % (test code = 736-9) 14.9 % MONO % (test code = 5905-5) 8.3 % EOS % (test code = 713-8) 1.2 % BASO % (test code = 706-2) 0.4 % GRAN MAT x10^3(ANC) (test code = 5315071053) 8.05 10*3/uL 1.88-7.09 H IMM GRAN x10^3 (test code = 4019815168) 0.19 10*3/uL 0.00-0.06 H LYMPH x10^3 (test code = 731-0) 1.63 10*3/uL 1.32-3.29 MONO x10^3 (test code = 742-7) 0.91 10*3/uL 0.33-0.92 EOS x10^3 (test code = 711-2) 0.13 10*3/uL 0.03-0.39 BASO x10^3 (test code = 704-7) 0.04 10*3/uL 0.01-0.07 Lab Interpretation (test code = 10599-1) Abnormal [facility] HospitalXR CHEST 1 LW2298-09-15 19:28:17HISTORY: Dyspnea. TECHNIQUE: Portable AP view of the chest is obtained. Comparison made with11/21/2023 study. FINDINGS: No acute pneumonia. No pneumothorax or pleural effusion orpulmonary congestion detected. Mild cardiomegaly noted. Multilevel lowercervical ACDF surgical changes partially visualized. Mild degenerativechanges noted in the right glenohumeral joint. CONCLUSIONS: Mild cardiomegaly.[facility] HospitalComp. Metabolic Panel (69579) 2023-12-02 19:27:30* Test Item Value Reference Range Interpretation Comme nts NA (test code = 1549091080) 138 mmol/L 135-145 K (test code = 0727155147) 3.8 mmol/L 3.5-5.0 CL (test code = 7205381938) 106 mmol/L 98-108 CO2 TOTAL (test code = 9763034110) 22 mmol/L 23-31 L AGAP (test code = 6555405030) 10 2-16 BUN (test code = 1659416068) 11 mg/dL 7-23 GLUCOSE (test code = 6186482758) 103 mg/dL 70-110 CREATININE (test code = 2160-0) 0.56 mg/dL 0.50-1.04 TOTAL BILI (test code = 6698969539) 0.8 mg/dL 0.1-1.1 CALCIUM (test code = 2139237243) 8.9 mg/dL 8.6-10.6 T PROTEIN (test code = 4816757592) 7.3 g/dL 6.3-8.2 ALBUMIN (test code = 8572535922) 3.9 g/dL 3.5-5.0 ALK PHOS (test code = 2680301022) 147 U/L 34-122 H ALTv (test code = 1742-6) 34 U/L 5-35 AST(SGOT) (test code = 9647413981) 30 U/L 13-40 eGFR (test code = 42994-2) 110.7 mL/min/1.73m2 CKD-EPI eGFR (2020). Assuming creatinine has been stable day-to-day for at least three months, the eGFR indicates Category G1 (>= 90 mL/min/1.73 m2) Lab Interpretation (test code = 39216-5) Abnormal [facility]-Terminal Fuz-Qgm0799-81-11 17:53:15* Test Item Value Reference Range Interpretation Comme nts NT-proBNP (test code = 37388-6) 1070 pg/mL <=125 H LYNDSAY (test code = LYNDSAY) Positive: Heart Failure Likely Lab Interpretation (test code = 99425-1) Abnormal [facility])2023-11-28 16:41:29* Test Item Value Reference Range Interpretation Comme nts POCT GLU (test code = 2881830882) 129 mg/dL 70-110 H Lab Interpretation (test cod e = 70992-3) Abnormal [facility] HospitalMagnesium2024-05-11 10:02:12* Test Item Value Reference Range Interpretation Comme nts MAGNESIUM (test code = 1784853381) 2.1 mg/dL 1.7-2.4 Lab Interpretation (test cod e = 39546-6) Normal [facility] HospitalPhosphorus2024-05-11 10:02:12* Test Item Value Reference Range Interpretation Comme nts PHOSPHORUS (test code = 4133028107) 5.9 mg/dL 2.5-5.0 H Lab Interpretation (test cod e = 00361-1) Abnormal [facility] HospitalComp. Metabolic Panel (09992)2023-11-28 10:02:12* Test Item Value Reference Range Interpretation Comme nts NA (test code = 2937457784) 140 mmol/L 135-145 K (test code = 0259345629) 3.7 mmol/L 3.5-5.0 CL (test code = 4147308206) 98 mmol/L 98-108 CO2 TOTAL (test code = 9823562115) 33 mmol/L 23-31 H AGAP (test code = 5245354483) 9 2-16 BUN (test code = 4633540198) 24 mg/dL 7-23 H GLUCOSE (test code = 4308355640) 107 mg/dL 70-110 CREATININE (test code = 2160-0) 0.61 mg/dL 0.50-1.04 TOTAL BILI (test code = 2610520951) 0.6 mg/dL 0.1-1.1 CALCIUM (test code = 5166358053) 8.0 mg/dL 8.6-10.6 L T PROTEIN (test code = 2531139592) 6.0 g/dL 6.3-8.2 L ALBUMIN (test code = 3925587677) 3.4 g/dL 3.5-5.0 L ALK PHOS (test code = 6934852646) 173 U/L 34-122 H ALTv (test code = 1742-6) 61 U/L 5-35 H AST(SGOT) (test code = 8172096102) 29 U/L 13-40 eGFR (test code = 08159-3) 108.4 mL/min/1.73m2 CKD-EPI eGFR (2020). Assuming creatinine has been stable day-to-day for at least three months, the eGFR indicates Category G1 (>= 90 mL/min/1.73 m2) Lab Interpretation (test code = 92350-9) Abnormal [facility] HospitalCb with Zhis4573-28-51 09:37:29* Test Item Value Reference Range Interpretation [...] g/dL 31.6-35.1 L RDW-SD (test code = 87828-3) 65.6 fL 39.0-49.9 H RDW-CV (test code = 788-0) 22.0 % 12.0-15.5 H PLT (test code = 777-3) 292 166-358 MPV (test code = 39369-3) 9.1 fL 9.5-12.9 L NRBC/100 WBC (test code = 8149468471) 0.0 0.0-10.0 NRBC x10^3 (test code = 4883969706) See_Comment [Automated messa ge] The system which generated this result transmitted reference range: 10*3/?L. The reference range was not used to interpret this result as normal/abnormal. GRAN MAT (NEUT) % (test code = 770-8) 62.0 % IMM GRAN % (test code = 7641355717) 1.20 % LYMPH % (test code = 736-9) 28.5 % MONO % (test code = 5905-5) 7.3 % EOS % (test code = 713-8) 0.9 % BASO % (test code = 706-2) 0.1 % GRAN MAT x10^3(ANC) (test code = 2534618190) 4.98 10*3/uL 1.88-7.09 IMM GRAN x10^3 (test code = 4222943573) 0.10 10*3/uL 0.00-0.06 H LYMPH x10^3 (test code = 731-0) 2.29 10*3/uL 1.32-3.29 MONO x10^3 (test code = 742-7) 0.59 10*3/uL 0.33-0.92 EOS x10^3 (test code = 711-2) 0.07 10*3/uL 0.03-0.39 BASO x10^3 (test code = 704-7) 0.01-0.07 Lab Interpretation (test code = 27387-6) Abnormal [facility] GLUCOSE (AUTOMATED)2023-11-28 01:32:15* Test Item Value Reference Range Interpretation Comme nts POCT GLU (test code = 1209210772) 154 mg/dL 70-110 H Lab Interpretation (test cod e = 05305-8) Abnormal [facility] GLUCOSE (AUTOMATED)2023-11-27 21:45:44* Test Item Value Reference Range Interpretation Comme nts POCT GLU (test code = 8279819012) 183 mg/dL 70-110 H Lab Interpretation (test cod e = 02514-9) Abnormal [facility] GLUCOSE (AUTOMATED)2023-11-27 16:31:46* Test Item Value Reference Range Interpretation Comme nts POCT GLU (test code = 7143428951) 96 mg/dL 70-110 Lab Interpretation (test cod e = 32985-5) Normal [facility] GLUCOSE (AUTOMATED)2023-11-27 12:42:32* Test Item Value Reference Range Interpretation Comme nts POCT GLU (test code = 2134728630) 88 mg/dL 70-110 Lab Interpretation (test cod e = 79144-7) Normal [facility] HospitalLactic Acid Whole Sxlzz7387-61-73 06:44:07* Test Item Value Reference Range Interpretation Comme nts LACTIC ACID (test code = 9350108014) 1.48 mmol/L 0.50-2.20 Lab Interpretation (test cod e = 51915-6) Normal [facility] GLUCOSE (AUTOMATED)2023-11-27 02:37:00* Test Item Value Reference Range Interpretation Comme nts POCT GLU (test code = 8557671336) 167 mg/dL 70-110 H Lab Interpretation (test cod e = 61889-7) Abnormal [facility] HospitalValproic Acid, Rgvl7969-58-01 00:22:04* Test Item Value Reference Range Interpretation Comme nts Valproic Acid, Free (test code = 7333920218) 23.8 ug/mL 4.0-15.0 H LYNDSAY (test code = LYNDSAY) Toxic Range: ? Greater than 15 ug/mL Test developed and characteristics determined by [facility] Laboratory Services. Lab Interpretation (test code = 31593-2) Abnormal [facility] HospitalFolate2024-05-09 22:17:52* Test Item Value Reference Range Interpretation Comme nts FOLATE SER (test code = 4174451668) 10.9 ng/mL 3.0-20.0 Lab Interpretation (test cod e = 28422-6) Normal [facility] HospitalVitamin B12, Fktqe8182-28-24 22:17:52* Test Item Value Reference Range Interpretation Comme nts VIT B12 (test code = 9532651240) 485 pg/mL 240-930 LYNDSAY (test code = LYNDSAY) Biotin has been reported to cause a positive bias, interpret results relative to patient's use of biotin. Lab Interpretation (test code = 88960-4) Normal [facility] HospitalCT HEAD WO CVKGKPYQ6570-51-94 22:17:11EXAM: CT HEAD WO CONTRAST HISTORY: 53 [...] and central skull base areunremarkable. [facility] HospitalMagnesium2024-05-09 22:11:53* Test Item Value Reference Range Interpretation Comme nts MAGNESIUM (test code = 5177933329) 2.1 mg/dL 1.7-2.4 Lab Interpretation (test cod e = 40293-9) Normal [facility] HospitalComp. Metabolic Panel (18101)2023-11-26 22:11:53* Test Item Value Reference Range Interpretation Comme nts NA (test code = 2344504487) 132 mmol/L 135-145 L K (test code = 5173655229) 4.3 mmol/L 3.5-5.0 CL (test code = 8889127787) 94 mmol/L 98-108 L CO2 TOTAL (test code = 7872860632) 34 mmol/L 23-31 H AGAP (test code = 1202681230) 4 2-16 BUN (test code = 2176520698) 24 mg/dL 7-23 H GLUCOSE (test code = 5786301980) 178 mg/dL 70-110 H CREATININE (test code = 2160-0) 0.62 mg/dL 0.50-1.04 TOTAL BILI (test code = 6630517377) 0.6 mg/dL 0.1-1.1 CALCIUM (test code = 8264230162) 8.0 mg/dL 8.6-10.6 L T PROTEIN (test code = 2554610062) 6.1 g/dL 6.3-8.2 L ALBUMIN (test code = 1474607330) 3.5 g/dL 3.5-5.0 ALK PHOS (test code = 6968075775) 212 U/L 34-122 H ALTv (test code = 1742-6) 80 U/L 5-35 H AST(SGOT) (test code = 8181973297) 51 U/L 13-40 H eGFR (test code = 61433-2) 108.0 mL/min/1.73m2 CKD-EPI eGFR (2020). Assuming creatinine has been stable day-to-day for at least three months, the eGFR indicates Category G1 (>= 90 mL/min/1.73 m2) Lab Interpretation (test code = 94283-5) Abnormal [facility])2023-11-26 21:19:06* Test Item Value Reference Range Interpretation Comme [facility] POCT GLU (test code = 7206789235) 224 mg/dL 70-110 H Lab Interpretation (test cod e = 39447-7) Abnormal [facility] HospitalKeppra (Levetiracetam)2023-11-26 19:45:17* Test Item Value Reference Range Interpretation Comme [facility] KEPPRA (test code = 9772477976) 12-46 L LYNDSAY (test code = LYNDSAY) Therapeutic range: 12-46 ?g/mL ? ?Toxic: Not well established.Test developed and characteristics determined by [facility] Laboratory Services. Lab Interpretation (test code = 67747-0) Abnormal [facility] HospitalLaflic Acid Whole Jimcy1762-82-88 18:11:07* Test Item Value Reference Range Interpretation Comme [facility] LACTIC ACID (test code = 8320255718) 6.19 mmol/L 0.50-2.20 H Lab Interpretation (test cod e = 94944-9) Abnormal [facility] GLUCOSE (AUTOMATED)2023-11-26 17:06:14* Test Item Value Reference Range Interpretation Comme [facility] POCT GLU (test code = 5100128275) 293 mg/dL 70-110 H Lab Interpretation (test cod e = 58205-3) Abnormal [facility]. Metabolic Panel (46679)2023-11-26 14:21:31* Test Item Value Reference Range Interpretation Comme [facility] NA (test code = 9493696354) 140 mmol/L 135-145 K (test code = 0906096723) 3.9 mmol/L 3.5-5.0 CL (test code = 8530234702) 93 mmol/L 98-108 L CO2 TOTAL (test code = 6321096607) 38 mmol/L 23-31 H AGAP (test code = 7824816520) 9 2-16 BUN (test code = 7108862066) 25 mg/dL 7-23 H GLUCOSE (test code = 3914766150) 83 mg/dL 70-110 CREATININE (test code = 2160-0) 0.71 mg/dL 0.50-1.04 TOTAL BILI (test code = 1576994824) 0.7 mg/dL 0.1-1.1 CALCIUM (test code = 0727575290) 8.7 mg/dL 8.6-10.6 T PROTEIN (test code = 3517528858) 6.6 g/dL 6.3-8.2 ALBUMIN (test code = 2180825638) 3.6 g/dL 3.5-5.0 ALK PHOS (test code = 4094977116) 220 U/L 34-122 H ALTv (test code = 1742-6) 95 U/L 5-35 H AST(SGOT) (test code = 9443429864) 47 U/L 13-40 H eGFR (test code = 25545-1) 103.1 mL/min/1.73m2 CKD-EPI eGFR (2020). Assuming creatinine has been stable day-to-day for at least three months, the eGFR indicates Category G1 (>= 90 mL/min/1.73 m2) Lab Interpretation (test code = 37522-0) Abnormal [facility] HospitalMagnesium2024-05-09 14:03:47* Test Item Value Reference Range Interpretation Comme nts MAGNESIUM (test code = 8605212789) 2.3 mg/dL 1.7-2.4 Lab Interpretation (test cod e = 55585-8) Normal [facility] with Dbdd7440-31-05 13:57:47* Test Item Value Reference Range Interpretation [...] g/dL 31.6-35.1 L RDW-SD (test code = 56151-2) 67.3 fL 39.0-49.9 H RDW-CV (test code = 788-0) 22.5 % 12.0-15.5 H PLT (test code = 777-3) 285 166-358 MPV (test code = 35817-5) 9.2 fL 9.5-12.9 L NRBC/100 WBC (test code = 5020700268) 0.3 0.0-10.0 NRBC x10^3 (test code = 2381663306) 0.03 See_Comment [Automated messa ge] The system which generated this result transmitted reference range: 10*3/?L. The reference range was not used to interpret this result as normal/abnormal. GRAN MAT (NEUT) % (test code = 770-8) 70.5 % IMM GRAN % (test code = 7713974008) 0.80 % LYMPH % (test code = 736-9) 21.7 % MONO % (test code = 5905-5) 6.4 % EOS % (test code = 713-8) 0.5 % BASO % (test code = 706-2) 0.1 % GRAN MAT x10^3(ANC) (test code = 7959418720) 7.54 10*3/uL 1.88-7.09 H IMM GRAN x10^3 (test code = 0786767664) 0.09 10*3/uL 0.00-0.06 H LYMPH x10^3 (test code = 731-0) 2.32 10*3/uL 1.32-3.29 MONO x10^3 (test code = 742-7) 0.69 10*3/uL 0.33-0.92 EOS x10^3 (test code = 711-2) 0.05 10*3/uL 0.03-0.39 BASO x10^3 (test code = 704-7) 0.01-0.07 Lab Interpretation (test code = 39908-1) Abnormal [facility] HospitalLaflic Acid Whole Kxrcs3036-59-69 10:06:23* Test Item Value Reference Range Interpretation Comme [facility] LACTIC ACID (test code = 5915772506) 2.41 mmol/L 0.50-2.20 H Lab Interpretation (test cod e = 39869-8) Abnormal [facility] (AUTOMATED)2023-11-26 02:14:06* Test Item Value Reference Range Interpretation Comme [facility] POCT GLU (test code = 0715207240) 288 mg/dL 70-110 H Lab Interpretation (test cod e = 65811-2) Abnormal [facility] HospitalLaflic Acid Whole Wqkco3648-01-41 00:56:52* Test Item Value Reference Range Interpretation Comme [facility] LACTIC ACID (test code = 6188368378) 2.93 mmol/L 0.50-2.20 H Lab Interpretation (test cod e = 63602-7) Abnormal [facility] HospitalElectroencephalogram (EEG) - Duration of test: Continuous EEG Monitoring (LTM); Release to patient:Hefwowtue5272-85-71 00:00:00 * Test Item Value Reference Range Interpretation Comme nts LYNDSAY (test code = LYNDSAY) LONG-TERM EEG MONITORING #1: 11/26/2023, 15:40 - 16: 31 Name: Heather TurnerMRN: [id number] Age:53 year oldSex: female History from chart review: This is a 53 year old female with a PMH significant for HFrEF (~35% 05/2023), HTN, Smoker, COPD (on intermittent home O2), chronic low back pain, seizure disorder, C3-C4 ACDF and L3-L4 laminectomies (06/01/23) c/b chronic low back pain 2/2 lumbar spinal stenosis, and depression presenting from [facility] ED due to SOB. Level [...] segment. Laura Ramirez MD, PhD, FAESData: 11/26/2023 LONG-TERM EEG MONITORING SEGMENT #2: 11/26/23, 16:31:09-19:29:41 In [...] Interpreted by Dewey Neal MD on 11/26/23 -----FIRE ASSISTANT EEG MONITORING SEGMENT #3: 11/26/23, 19:29:41 to [...] on 11/27/23 Lab Interpretation (test code = 57476-5) Abnormal [facility] Metabolic Panel (33534)2023-11-25 21:24:39* Test Item Value Reference Range Interpretation Comme nts NA (test code = 8759059633) 134 mmol/L 135-145 L K (test code = 1168657088) 4.3 mmol/L 3.5-5.0 CL (test code = 1041326928) 89 mmol/L 98-108 L CO2 TOTAL (test code = 3683686212) 37 mmol/L 23-31 H AGAP (test code = 7415089262) 8 2-16 BUN (test code = 1479189094) 24 mg/dL 7-23 H GLUCOSE (test code = 2428578337) 177 mg/dL 70-110 H CREATININE (test code = 2160-0) 0.69 mg/dL 0.50-1.04 TOTAL BILI (test code = 6510681062) 0.9 mg/dL 0.1-1.1 CALCIUM (test code = 4284743253) 8.6 mg/dL 8.6-10.6 T PROTEIN (test code = 4531299656) 7.3 g/dL 6.3-8.2 ALBUMIN (test code = 6401403824) 4.1 g/dL 3.5-5.0 ALK PHOS (test code = 7452076695) 263 U/L 34-122 H ALTv (test code = 1742-6) 116 U/L 5-35 H AST(SGOT) (test code = 2412916507) 36 U/L 13-40 eGFR (test code = 25001-3) 105.2 mL/min/1.73m2 CKD-EPI eGFR (2020). Assuming creatinine has been stable day-to-day for at least three months, the eGFR indicates Category G1 (>= 90 mL/min/1.73 m2) Lab Interpretation (test code = 91646-7) [facility]* Test Item Value Reference Range Interpretation Comme nts MAGNESIUM (test code = 0391903862) 2.1 mg/dL 1.7-2.4 Lab Interpretation (test cod e = 43882-8) Normal [facility] Iufka8236-76-05 21:10:26* Test Item Value Reference Range Interpretation Comme nts LACTIC ACID (test code = 5935989462) 4.07 mmol/L 0.50-2.20 H Lab Interpretation (test cod e = 03411-3) Abnormal [facility] GLUCOSE (AUTOMATED)2023-11-25 21:01:04* Test Item Value Reference Range Interpretation Comme nts POCT GLU (test code = 4895231700) 173 mg/dL 70-110 H Lab Interpretation (test cod e = 06116-4) Abnormal [facility] GLUCOSE (AUTOMATED)2023-11-25 16:59:00* Test Item Value Reference Range Interpretation Comme nts POCT GLU (test code = 8260281636) 220 mg/dL 70-110 H Lab Interpretation (test cod e = 88845-6) Abnormal [facility] GLUCOSE (AUTOMATED)2023-11-25 13:06:20* Test Item Value Reference Range Interpretation Comme nts POCT GLU (test code = 0936002134) 92 mg/dL 70-110 Lab Interpretation (test cod e = 17984-0) [facility] Ccbvs0542-97-90 09:28:51* Test Item Value Reference Range Interpretation Comme nts LACTIC ACID (test code = 5055646600) 1.66 mmol/L 0.50-2.20 Lab Interpretation (test cod e = 61367-6) [facility] Pgucy1410-83-41 04:58:57* Test Item Value Reference Range Interpretation Comme nts LACTIC ACID (test code = 1907063944) 2.00 mmol/L 0.50-2.20 Lab Interpretation (test cod e = 49858-5) Normal [facility] GLUCOSE (AUTOMATED)2023-11-25 03:05:13* Test Item Value Reference Range Interpretation Comme nts POCT GLU (test code = 8672499899) 189 mg/dL 70-110 H Lab Interpretation (test cod e = 96390-6) Abnormal [facility] ABDOMEN PELVIS W NSMMCCVC0169-38-00 00:18:09CT ABDOMEN PELVIS W CONTRAST 11/24/2023 5:07 [...] upper thigh skinthickening and subcutaneous edema.[facility] Nhoiv8234-29-70 21:31:49* Test Item Value Reference Range Interpretation Comme [facility] LACTIC ACID (test code = 3574493150) 4.54 mmol/L 0.50-2.20 H Lab Interpretation (test cod e = 50567-8) Abnormal [facility] GLUCOSE (AUTOMATED)2023-11-24 21:31:39* Test Item Value Reference Range Interpretation Comme [facility] POCT GLU (test code = 3300290714) 198 mg/dL 70-110 H Lab Interpretation (test cod e = 79823-4) Abnormal [facility] GLUCOSE (AUTOMATED)2023-11-24 17:53:57* Test Item Value Reference Range Interpretation Comme [facility] POCT GLU (test code = 2658996003) 226 mg/dL 70-110 H Lab Interpretation (test cod e = 31701-0) Abnormal [facility] GLUCOSE (AUTOMATED)2023-11-24 17:53:57* Test Item Value Reference Range Interpretation Comme nts POCT GLU (test code = 3551249841) 226 mg/dL 70-110 H Lab Interpretation (test cod e = 68367-6) Abnormal [facility] GLUCOSE (AUTOMATED)2023-11-24 17:53:57* Test Item Value Reference Range Interpretation Comme nts POCT GLU (test code = 6544495657) 226 mg/dL 70-110 H Lab Interpretation (test cod e = 42144-9) Abnormal [facility] Whole Hjnuh6524-86-50 15:48:27* Test Item Value Reference Range Interpretation Comme nts LACTIC ACID (test code = 0247264659) 4.43 mmol/L 0.50-2.20 H Lab Interpretation (test cod e = 33019-4) Abnormal [facility] Whole Dggoo9541-18-78 15:48:27* Test Item Value Reference Range Interpretation Comme nts LACTIC ACID (test code = 9496709091) 4.43 mmol/L 0.50-2.20 H Lab Interpretation (test cod e = 15835-2) Abnormal [facility] Whole Kbqga8647-18-26 15:48:27* Test Item Value Reference Range Interpretation Comme nts LACTIC ACID (test code = 3729409994) 4.43 mmol/L 0.50-2.20 H Lab Interpretation (test cod e = 33031-6) Abnormal [facility] HospitalCardiovascular Pgeabylypbgdefq6554-48-90 14:28:29? ?RHC/Coronary Angiography Date of Service: 11/23/2023 ?3:18 PM Indication/Diagnosis: heart failure Consent source: self Consent type: indications/complications discussed with patient/legal guardian; written consent obtained Time out completed: yes Aseptic technique: Chlorprep Local Anesthesia: 1% lidocaine without epinephrine Sedation: fentanyl 50 mcg, Versed 2 mg Access site: right radial artery, RIJ Hudson 4.0 5fr8 Fr IJ sheathSwan Rosalba ? [...] ?Faculty, was present for the entire procedure. [facility] Post-Procedure Sedation AddendumImmediately prior to start of [...] sided failure. Nataliia Ivy professor.Division of cardiovascular [facility] (AUT[facility]ATED)2023-11-24 12:34:31* Test Item Value Reference Range Interpretation Comme nts POCT GLU (test code = 6419062008) 114 mg/dL 70-110 H Lab Interpretation (test cod e = 43799-3) Abnormal [facility] GLUCOSE (AUTOMATED)2023-11-24 12:34:31* Test Item Value Reference Range Interpretation Comme nts POCT GLU (test code = 3469742745) 114 mg/dL 70-110 H Lab Interpretation (test cod e = 79204-3) Abnormal [facility] GLUCOSE (AUTOMATED)2023-11-24 12:34:31* Test Item Value Reference Range Interpretation Comme nts POCT GLU (test code = 6673168454) 114 mg/dL 70-110 H Lab Interpretation (test cod e = 25422-1) Abnormal [facility] HospitalMagnesium2024-05-07 11:10:57* Test Item Value Reference Range Interpretation Comme nts MAGNESIUM (test code = 9880612123) 2.2 mg/dL 1.7-2.4 Lab Interpretation (test cod e = 02802-1) Normal [facility]. Metabolic Panel (46179)2023-11-24 11:10:57* Test Item Value Reference Range Interpretation Comme nts NA (test code = 0418108120) 141 mmol/L 135-145 K (test code = 0062140637) 4.1 mmol/L 3.5-5.0 CL (test code = 7076110696) 97 mmol/L 98-108 L CO2 TOTAL (test code = 0430713239) 36 mmol/L 23-31 H AGAP (test code = 1206130336) 8 2-16 BUN (test code = 6092077602) 20 mg/dL 7-23 GLUCOSE (test code = 0391797053) 125 mg/dL 70-110 H CREATININE (test code = 2160-0) 0.66 mg/dL 0.50-1.04 TOTAL BILI (test code = 3224951652) 0.7 mg/dL 0.1-1.1 CALCIUM (test code = 1614560172) 8.4 mg/dL 8.6-10.6 L T PROTEIN (test code = 6775988092) 6.5 g/dL 6.3-8.2 ALBUMIN (test code = 5578228823) 3.7 g/dL 3.5-5.0 ALK PHOS (test code = 1579431406) 266 U/L 34-122 H ALTv (test code = 1742-6) 149 U/L 5-35 H AST(SGOT) (test code = 0613752641) 35 U/L 13-40 eGFR (test code = 55660-4) 106.4 mL/min/1.73m2 CKD-EPI eGFR (2020). Assuming creatinine has been stable day-to-day for at least three months, the eGFR indicates Category G1 (>= 90 mL/min/1.73 m2) Lab Interpretation (test code = 87419-1) Abnormal [facility] HospitalMagnesium2024-05-07 11:10:57* Test Item Value Reference Range Interpretation Comme nts MAGNESIUM (test code = 4350425952) 2.2 mg/dL 1.7-2.4 Lab Interpretation (test cod e = 97781-3) Normal [facility] Metabolic Panel (50865)2023-11-24 11:10:57* Test Item Value Reference Range Interpretation Comme nts NA (test code = 1874746027) 141 mmol/L 135-145 K (test code = 1372755833) 4.1 mmol/L 3.5-5.0 CL (test code = 5142290809) 97 mmol/L 98-108 L CO2 TOTAL (test code = 4134468224) 36 mmol/L 23-31 H AGAP (test code = 9899766969) 8 2-16 BUN (test code = 7487640071) 20 mg/dL 7-23 GLUCOSE (test code = 3397905485) 125 mg/dL 70-110 H CREATININE (test code = 2160-0) 0.66 mg/dL 0.50-1.04 TOTAL BILI (test code = 9211938158) 0.7 mg/dL 0.1-1.1 CALCIUM (test code = 6715141935) 8.4 mg/dL 8.6-10.6 L T PROTEIN (test code = 4462010443) 6.5 g/dL 6.3-8.2 ALBUMIN (test code = 8477078810) 3.7 g/dL 3.5-5.0 ALK PHOS (test code = 8437587094) 266 U/L 34-122 H ALTv (test code = 1742-6) 149 U/L 5-35 H AST(SGOT) (test code = 9532893721) 35 U/L 13-40 eGFR (test code = 81871-7) 106.4 mL/min/1.73m2 CKD-EPI eGFR (2020). Assuming creatinine has been stable day-to-day for at least three months, the eGFR indicates Category G1 (>= 90 mL/min/1.73 m2) Lab Interpretation (test code = 60271-3) Abnormal [facility] HospitalMagnesium2024-05-07 11:10:57* Test Item Value Reference Range Interpretation Comme nts MAGNESIUM (test code = 5063137469) 2.2 mg/dL 1.7-2.4 Lab Interpretation (test cod e = 53395-5) Normal [facility] Metabolic Panel (20667)2023-11-24 11:10:57* Test Item Value Reference Range Interpretation Comme nts NA (test code = 8972731676) 141 mmol/L 135-145 K (test code = 0144491717) 4.1 mmol/L 3.5-5.0 CL (test code = 4039766075) 97 mmol/L 98-108 L CO2 TOTAL (test code = 4215573491) 36 mmol/L 23-31 H AGAP (test code = 2146827814) 8 2-16 BUN (test code = 9138499793) 20 mg/dL 7-23 GLUCOSE (test code = 6073798443) 125 mg/dL 70-110 H CREATININE (test code = 2160-0) 0.66 mg/dL 0.50-1.04 TOTAL BILI (test code = 6300594676) 0.7 mg/dL 0.1-1.1 CALCIUM (test code = 8261452311) 8.4 mg/dL 8.6-10.6 L T PROTEIN (test code = 1428793636) 6.5 g/dL 6.3-8.2 ALBUMIN (test code = 7290399379) 3.7 g/dL 3.5-5.0 ALK PHOS (test code = 8748455662) 266 U/L 34-122 H ALTv (test code = 1742-6) 149 U/L 5-35 H AST(SGOT) (test code = 5539340819) 35 U/L 13-40 eGFR (test code = 53286-1) 106.4 mL/min/1.73m2 CKD-EPI eGFR (2020). Assuming creatinine has been stable day-to-day for at least three months, the eGFR indicates Category G1 (>= 90 mL/min/1.73 m2) Lab Interpretation (test code = 53741-2) [facility] Ukvlcc1006-39-17 11:07:59* Test Item Value Reference Range Interpretation Comme nts LACTIC ACID (test code = 4362883748) 3.41 mmol/L 0.50-2.20 H Lab Interpretation (test cod e = 88418-6) [facility]normal [facility] Kfdeye2644-81-70 11:07:59* Test Item Value Reference Range Interpretation Comme nts LACTIC ACID (test code = 6127452413) 3.41 mmol/L 0.50-2.20 H Lab Interpretation (test cod e = 01556-0) [facility]normal [facility] Mtulwp6527-94-29 11:07:59* Test Item Value Reference Range Interpretation Comme nts LACTIC ACID (test code = 5160910461) 3.41 mmol/L 0.50-2.20 H Lab Interpretation (test cod e = 38110-6) Abnormal [facility] with Bqmm0041-36-55 10:28:34* Test Item Value Reference Range Interpretation [...] g/dL 31.6-35.1 L RDW-SD (test code = 18104-4) 67.5 fL 39.0-49.9 H RDW-CV (test code = 788-0) 22.5 % 12.0-15.5 H PLT (test code = 777-3) 245 166-358 MPV (test code = 92361-4) 9.5 fL 9.5-12.9 NRBC/100 WBC (test code = 4320577763) 1.2 0.0-10.0 NRBC x10^3 (test code = 0916599682) 0.11 See_Comment [Automated messa ge] The system which generated this result transmitted reference range: 10*3/?L. The reference range was not used to interpret this result as normal/abnormal. GRAN MAT (NEUT) % (test code = 770-8) 84.8 % IMM GRAN % (test code = 0217321170) 0.80 % LYMPH % (test code = 736-9) 7.3 % MONO % (test code = 5905-5) 7.0 % EOS % (test code = 713-8) 0.0 % BASO % (test code = 706-2) 0.1 % GRAN MAT x10^3(ANC) (test code = 2733076652) 8.03 10*3/uL 1.88-7.09 H IMM GRAN x10^3 (test code = 8149240636) 0.08 10*3/uL 0.00-0.06 H LYMPH x10^3 (test code = 731-0) 0.69 10*3/uL 1.32-3.29 L MONO x10^3 (test code = 742-7) 0.66 10*3/uL 0.33-0.92 EOS x10^3 (test code = 711-2) 0.03-0.39 L BASO x10^3 (test code = 704-7) 0.01-0.07 Lab Interpretation (test code = 80031-9) Abnormal [facility] with Zcep1668-03-88 10:28:34* Test Item Value Reference Range Interpretation [...] g/dL 31.6-35.1 L RDW-SD (test code = 36529-5) 67.5 fL 39.0-49.9 H RDW-CV (test code = 788-0) 22.5 % 12.0-15.5 H PLT (test code = 777-3) 245 166-358 MPV (test code = 22017-1) 9.5 fL 9.5-12.9 NRBC/100 WBC (test code = 8749071567) 1.2 0.0-10.0 NRBC x10^3 (test code = 6435622197) 0.11 See_Comment [Automated messa ge] The system which generated this result transmitted reference range: 10*3/?L. The reference range was not used to interpret this result as normal/abnormal. GRAN MAT (NEUT) % (test code = 770-8) 84.8 % IMM GRAN % (test code = 6159620860) 0.80 % LYMPH % (test code = 736-9) 7.3 % MONO % (test code = 5905-5) 7.0 % EOS % (test code = 713-8) 0.0 % BASO % (test code = 706-2) 0.1 % GRAN MAT x10^3(ANC) (test code = 1580886141) 8.03 10*3/uL 1.88-7.09 H IMM GRAN x10^3 (test code = 5819948043) 0.08 10*3/uL 0.00-0.06 H LYMPH x10^3 (test code = 731-0) 0.69 10*3/uL 1.32-3.29 L MONO x10^3 (test code = 742-7) 0.66 10*3/uL 0.33-0.92 EOS x10^3 (test code = 711-2) 0.03-0.39 L BASO x10^3 (test code = 704-7) 0.01-0.07 Lab Interpretation (test code = 11864-6) Abnormal [facility] with Qlsj0294-31-92 10:28:34* Test Item Value Reference Range Interpretation [...] g/dL 31.6-35.1 L RDW-SD (test code = 64185-2) 67.5 fL 39.0-49.9 H RDW-CV (test code = 788-0) 22.5 % 12.0-15.5 H PLT (test code = 777-3) 245 166-358 MPV (test code = 11943-7) 9.5 fL 9.5-12.9 NRBC/100 WBC (test code = 0872712539) 1.2 0.0-10.0 NRBC x10^3 (test code = 8169446901) 0.11 See_Comment [Automated messa ge] The system which generated this result transmitted reference range: 10*3/?L. The reference range was not used to interpret this result as normal/abnormal. GRAN MAT (NEUT) % (test code = 770-8) 84.8 % IMM GRAN % (test code = 0231183978) 0.80 % LYMPH % (test code = 736-9) 7.3 % MONO % (test code = 5905-5) 7.0 % EOS % (test code = 713-8) 0.0 % BASO % (test code = 706-2) 0.1 % GRAN MAT x10^3(ANC) (test code = 9917773264) 8.03 10*3/uL 1.88-7.09 H IMM GRAN x10^3 (test code = 5637405913) 0.08 10*3/uL 0.00-0.06 H LYMPH x10^3 (test code = 731-0) 0.69 10*3/uL 1.32-3.29 L MONO x10^3 (test code = 742-7) 0.66 10*3/uL 0.33-0.92 EOS x10^3 (test code = 711-2) 0.03-0.39 L BASO x10^3 (test code = 704-7) 0.01-0.07 Lab Interpretation (test code = 67866-6) Abnormal [facility] (for use with Heparin Infusion)2023-11-24 06:40:52* Test Item Value Reference Range Interpretation Comme nts APTT Patient (test code = 3173-2) Lab Interpretation (test cod e = 79502-3) Normal [facility] (for use with Heparin Infusion)2023-11-24 06:40:52* Test Item Value Reference Range Interpretation Comme nts APTT Patient (test code = 3173-2) Lab Interpretation (test cod e = 31582-4) Normal [facility] (for use with Heparin Infusion)2023-11-24 06:40:52* Test Item Value Reference Range Interpretation Comme nts APTT Patient (test code = 3173-2) Lab Interpretation (test cod e = 28114-3) Normal [facility] GLUCOSE (AUTOMATED)2023-11-24 03:18:58* Test Item Value Reference Range Interpretation Comme nts POCT GLU (test code = 1535361555) 263 mg/dL 70-110 H Lab Interpretation (test cod e = 55056-0) Abnormal [facility] GLUCOSE (AUTOMATED)2023-11-24 03:18:58* Test Item Value Reference Range Interpretation Comme nts POCT GLU (test code = 6679106424) 263 mg/dL 70-110 H Lab Interpretation (test cod e = 21122-3) Abnormal [facility] GLUCOSE (AUTOMATED)2023-11-24 03:18:58* Test Item Value Reference Range Interpretation Comme nts POCT GLU (test code = 2839806301) 263 mg/dL 70-110 H Lab Interpretation (test cod e = 72421-6) Abnormal [facility] GLUCOSE (AUTOMATED)2023-11-23 21:29:57* Test Item Value Reference Range Interpretation Comme nts POCT GLU (test code = 9875448158) 137 mg/dL 70-110 H Lab Interpretation (test cod e = 17583-5) Abnormal [facility] GLUCOSE (AUTOMATED)2023-11-23 21:29:57* Test Item Value Reference Range Interpretation Comme nts POCT GLU (test code = 1265759556) 137 mg/dL 70-110 H Lab Interpretation (test cod e = 33725-1) Abnormal [facility] GLUCOSE (AUTOMATED)2023-11-23 21:29:57* Test Item Value Reference Range Interpretation Comme nts POCT GLU (test code = 4315715392) 137 mg/dL 70-110 H Lab Interpretation (test cod e = 50926-4) Abnormal [facility] (89835) (ALB,T.PRO,BILI T,BU/BC,ALT,AST,ALK PHOS)2023-11-23 17:45:02* Test Item Value Reference Range Interpretation Comme nts TOTAL BILI (test code = 1884864305) 0.7 mg/dL 0.1-1.1 BILI UNCON (test code = 2854463201) 0.1 mg/dL 0.1-1.1 BILI CONJ (test code = 7136256505) 0.0 mg/dL 0.0-0.3 T PROTEIN (test code = 3318201803) 6.2 g/dL 6.3-8.2 L ALBUMIN (test code = 0948886835) 3.5 g/dL 3.5-5.0 ALK PHOS (test code = 3270351084) 274 U/L 34-122 H ALTv (test code = 1742-6) 176 U/L 5-35 H AST(SGOT) (test code = 7922429159) 40 U/L 13-40 Lab Interpretation (test cod e = 94887-3) Abnormal [facility] (95312) (ALB,T.PRO,BILI T,BU/BC,ALT,AST,ALK PHOS)2023-11-23 17:45:02* Test Item Value Reference Range Interpretation Comme nts TOTAL BILI (test code = 1786204260) 0.7 mg/dL 0.1-1.1 BILI UNCON (test code = 7900488730) 0.1 mg/dL 0.1-1.1 BILI CONJ (test code = 8309998116) 0.0 mg/dL 0.0-0.3 T PROTEIN (test code = 8535125101) 6.2 g/dL 6.3-8.2 L ALBUMIN (test code = 1226395173) 3.5 g/dL 3.5-5.0 ALK PHOS (test code = 6808839305) 274 U/L 34-122 H ALTv (test code = 1742-6) 176 U/L 5-35 H AST(SGOT) (test code = 3313766578) 40 U/L 13-40 Lab Interpretation (test cod e = 41793-4) Abnormal [facility] (10209) (ALB,T.PRO,BILI T,BU/BC,ALT,AST,ALK PHOS)2023-11-23 17:45:02* Test Item Value Reference Range Interpretation Comme nts TOTAL BILI (test code = 8638553972) 0.7 mg/dL 0.1-1.1 BILI UNCON (test code = 9786262703) 0.1 mg/dL 0.1-1.1 BILI CONJ (test code = 9734915885) 0.0 mg/dL 0.0-0.3 T PROTEIN (test code = 9167778813) 6.2 g/dL 6.3-8.2 L ALBUMIN (test code = 5345967583) 3.5 g/dL 3.5-5.0 ALK PHOS (test code = 8664410473) 274 U/L 34-122 H ALTv (test code = 1742-6) 176 U/L 5-35 H AST(SGOT) (test code = 0159435780) 40 U/L 13-40 Lab Interpretation (test cod e = 78355-4) Abnormal [facility] GLUCOSE (AUTOMATED)2023-11-23 17:19:25* Test Item Value Reference Range Interpretation Comme nts POCT GLU (test code = 6088640646) 137 mg/dL 70-110 H Lab Interpretation (test cod e = 15995-6) Abnormal [facility] GLUCOSE (AUTOMATED)2023-11-23 17:19:25* Test Item Value Reference Range Interpretation Comme nts POCT GLU (test code = 1316541975) 137 mg/dL 70-110 H Lab Interpretation (test cod e = 33618-1) Abnormal [facility] GLUCOSE (AUTOMATED)2023-11-23 17:19:25* Test Item Value Reference Range Interpretation Comme nts POCT GLU (test code = 0345210436) 137 mg/dL 70-110 H Lab Interpretation (test cod e = 46011-4) Abnormal [facility] GLUCOSE (AUTOMATED)2023-11-23 16:51:25* Test Item Value Reference Range Interpretation Comme nts POCT GLU (test code = 4179156138) 145 mg/dL 70-110 H Lab Interpretation (test cod e = 03972-1) Abnormal [facility] GLUCOSE (AUTOMATED)2023-11-23 16:51:25* Test Item Value Reference Range Interpretation Comme nts POCT GLU (test code = 3359411644) 145 mg/dL 70-110 H Lab Interpretation (test cod e = 95839-9) Abnormal [facility] GLUCOSE (AUTOMATED)2023-11-23 16:51:25* Test Item Value Reference Range Interpretation Comme nts POCT GLU (test code = 5153866743) 145 mg/dL 70-110 H Lab Interpretation (test cod e = 09874-6) [facility]2023-11-23 15:36:08* Test Item Value Reference Range Interpretation Comme nts APTT Patient (test code = 3173-2) 44 26-36 H Lab Interpretation (test cod e = 79436-8) Abnormal [facility] (for use with Heparin Infusion)2023-11-23 15:36:08* Test Item Value Reference Range Interpretation Comme nts APTT Patient (test code = 3173-2) 44 26-36 H Lab Interpretation (test cod e = 32990-5) [facility]normal [facility] Infusion[facility]2023-11-23 15:36:08* Test Item Value Reference Range Interpretation Comme nts APTT Patient (test code = 3173-2) 44 26-36 H Lab Interpretation (test cod e = 51629-2) [facility] Pgepj3973-31-19 15:21:35* Test Item Value Reference Range Interpretation Comme nts LACTIC ACID (test code = 5561342398) 4.80 mmol/L 0.50-2.20 H Lab Interpretation (test cod e = 50373-4) Abnormal [facility] Whole Rxlmq7665-40-14 15:21:35* Test Item Value Reference Range Interpretation Comme nts LACTIC ACID (test code = 1868383371) 4.80 mmol/L 0.50-2.20 H Lab Interpretation (test cod e = 78430-2) Abnormal [facility] Whole Gsdfc3072-89-82 15:21:35* Test Item Value Reference Range Interpretation Comme nts LACTIC ACID (test code = 2833394610) 4.80 mmol/L 0.50-2.20 H Lab Interpretation (test cod e = 81685-1) Abnormal [facility] GLUCOSE (AUTOMATED)2023-11-23 12:49:15* Test Item Value Reference Range Interpretation Comme nts POCT GLU (test code = 3412064770) 162 mg/dL 70-110 H Lab Interpretation (test cod e = 11255-4) Abnormal [facility] GLUCOSE (AUTOMATED)2023-11-23 12:49:15* Test Item Value Reference Range Interpretation Comme nts POCT GLU (test code = 4308086390) 162 mg/dL 70-110 H Lab Interpretation (test cod e = 30856-1) Abnormal [facility] ([facility]OMATED)2023-11-23 12:49:15* Test Item Value Reference Range Interpretation Comme nts POCT GLU (test code = 9926609314) 162 mg/dL 70-110 H Lab Interpretation (test cod e = 70121-3) [facility] 08:44:42* Test Item Value Reference Range Interpretation Comme nts MAGNESIUM (test code = 7077298663) 1.9 mg/dL 1.7-2.4 Lab Interpretation (test cod e = 90538-8) Normal [facility] Metabolic Panel (NA, K, CL, CO2, GLUCOSE, BUN, CREATININE, CA)2023-11-23 08:44:42* Test Item Value Reference Range Interpretation Comme nts NA (test code = 1536754311) 136 mmol/L 135-145 K (test code = 4340526653) 3.7 mmol/L 3.5-5.0 CL (test code = 7776548743) 99 mmol/L 98-108 CO2 TOTAL (test code = 7619841710) 31 mmol/L 23-31 AGAP (test code = 7554942405) 6 2-16 BUN (test code = 9260320411) 20 mg/dL 7-23 GLUCOSE (test code = 0098463648) 184 mg/dL 70-110 H CREATININE (test code = 2160-0) 0.66 mg/dL 0.50-1.04 CALCIUM (test code = 0623968212) 7.9 mg/dL 8.6-10.6 L eGFR (test code = 96991-0) 106.4 mL/min/1.73m2 CKD-EPI eGFR (2020). Assuming creatinine has been stable day-to-day for at least three months, the eGFR indicates Category G1 (>= 90 mL/min/1.73 m2) Lab Interpretation (test code = 53135-8) Abnormal [facility]2024-05-06 08:44:42* Test Item Value Reference Range Interpretation Comme nts MAGNESIUM (test code = 1037052203) 1.9 mg/dL 1.7-2.4 Lab Interpretation (test cod e = 70168-8) Normal [facility] Metabolic Panel (NA, K, CL, CO2, GLUCOSE, BUN, CREATININE, CA)2023-11-23 08:44:42* Test Item Value Reference Range Interpretation Comme nts NA (test code = 6032582503) 136 mmol/L 135-145 K (test code = 5359810936) 3.7 mmol/L 3.5-5.0 CL (test code = 8951807788) 99 mmol/L 98-108 CO2 TOTAL (test code = 3811637991) 31 mmol/L 23-31 AGAP (test code = 9486626923) 6 2-16 BUN (test code = 6122935219) 20 mg/dL 7-23 GLUCOSE (test code = 9223947381) 184 mg/dL 70-110 H CREATININE (test code = 2160-0) 0.66 mg/dL 0.50-1.04 CALCIUM (test code = 1659144811) 7.9 mg/dL 8.6-10.6 L eGFR (test code = 19618-0) 106.4 mL/min/1.73m2 CKD-EPI eGFR (2020). Assuming creatinine has been stable day-to-day for at least three months, the eGFR indicates Category G1 (>= 90 mL/min/1.73 m2) Lab Interpretation (test code = 27838-9) [facility]normal [facility]2024-[facility] 08:44:42* Test Item Value Reference Range Interpretation Comme nts MAGNESIUM (test code = 0344055019) 1.9 mg/dL 1.7-2.4 Lab Interpretation (test cod e = 58025-9) Normal [facility] Metabolic Panel (NA, K, CL, CO2, GLUCOSE, BUN, CREATININE, CA)2023-11-23 08:44:42* Test Item Value Reference Range Interpretation Comme nts NA (test code = 0316626692) 136 mmol/L 135-145 K (test code = 1702328878) 3.7 mmol/L 3.5-5.0 CL (test code = 9831820997) 99 mmol/L 98-108 CO2 TOTAL (test code = 4671285468) 31 mmol/L 23-31 AGAP (test code = 1671338767) 6 2-16 BUN (test code = 7135410750) 20 mg/dL 7-23 GLUCOSE (test code = 2431301768) 184 mg/dL 70-110 H CREATININE (test code = 2160-0) 0.66 mg/dL 0.50-1.04 CALCIUM (test code = 7862560510) 7.9 mg/dL 8.6-10.6 L eGFR (test code = 29477-1) 106.4 mL/min/1.73m2 CKD-EPI eGFR (2020). Assuming creatinine has been stable day-to-day for at least three months, the eGFR indicates Category G1 (>= 90 mL/min/1.73 m2) Lab Interpretation (test code = 74750-1) Abnormal [facility] (for use with Heparin Infusion)2023-11-23 08:29:39* Test Item Value Reference Range Interpretation Comme [facility] APTT Patient (test code = 3173-2) 49 26-36 H Lab Interpretation (test cod e = 45937-0) Abnormal [facility] (for use with Heparin Infusion)2023-11-23 08:29:39* Test Item Value Reference Range Interpretation Comme [facility] APTT Patient (test code = 3173-2) 49 26-36 H Lab Interpretation (test cod e = 29145-9) Abnormal [facility] (for use with Heparin Infusion)2023-11-23 08:29:39* Test Item Value Reference Range Interpretation Comme [facility] APTT Patient (test code = 3173-2) 49 26-36 H Lab Interpretation (test cod e = 30146-6) Abnormal [facility] with Soou7723-73-02 08:24:03* Test Item Value Reference Range Interpretation Comme [facility] WBC (test code = 6690-2) 7.18 4.30-11.10 RBC (test code = 789-8) 3.21 3.93-5.25 L HGB (test code = 718-7) 8.0 g/dL 11.6-15.0 L HCT (test code = 4544-3) 26.7 % 35.7-45.2 L MCV (test code = 787-2) 83.2 fL 80.6-95.5 MCH (test code = 785-6) 24.9 pg 25.9-32.8 L MCHC (test code = 786-4) 30.0 g/dL 31.6-35.1 L RDW-SD (test code = 87647-9) 66.0 fL 39.0-49.9 H RDW-CV (test code = 788-0) 22.5 % 12.0-15.5 H PLT (test code = 777-3) 204 166-358 MPV (test code = 57978-2) 9.8 fL 9.5-12.9 NRBC/100 WBC (test code = 9710938043) 2.4 0.0-10.0 NRBC x10^3 (test code = 7119073994) 0.17 See_Comment [Automated messa ge] The system which generated this result transmitted reference range: 10*3/?L. The reference range was not used to interpret this result as normal/abnormal. GRAN MAT (NEUT) % (test code = 770-8) 80.3 % IMM GRAN % (test code = 2550709100) 1.70 % LYMPH % (test code = 736-9) 9.5 % MONO % (test code = 5905-5) 8.5 % EOS % (test code = 713-8) 0.0 % BASO % (test code = 706-2) 0.0 % GRAN MAT x10^3(ANC) (test code = 8355021830) 5.77 10*3/uL 1.88-7.09 IMM GRAN x10^3 (test code = 6691609357) 0.12 10*3/uL 0.00-0.06 H LYMPH x10^3 (test code = 731-0) 0.68 10*3/uL 1.32-3.29 L MONO x10^3 (test code = 742-7) 0.61 10*3/uL 0.33-0.92 EOS x10^3 (test code = 711-2) 0.03-0.39 L BASO x10^3 (test code = 704-7) 0.01-0.07 Lab Interpretation (test code = 00297-9) Abnormal [facility] with Ejod0979-48-89 08:24:03* Test Item Value Reference Range Interpretation [...] g/dL 31.6-35.1 L RDW-SD (test code = 04299-3) 66.0 fL 39.0-49.9 H RDW-CV (test code = 788-0) 22.5 % 12.0-15.5 H PLT (test code = 777-3) 204 166-358 MPV (test code = 72236-3) 9.8 fL 9.5-12.9 NRBC/100 WBC (test code = 4649379190) 2.4 0.0-10.0 NRBC x10^3 (test code = 1439288213) 0.17 See_Comment [Automated messa ge] The system which generated this result transmitted reference range: 10*3/?L. The reference range was not used to interpret this result as normal/abnormal. GRAN MAT (NEUT) % (test code = 770-8) 80.3 % IMM GRAN % (test code = 1518175526) 1.70 % LYMPH % (test code = 736-9) 9.5 % MONO % (test code = 5905-5) 8.5 % EOS % (test code = 713-8) 0.0 % BASO % (test code = 706-2) 0.0 % GRAN MAT x10^3(ANC) (test code = 0093407276) 5.77 10*3/uL 1.88-7.09 IMM GRAN x10^3 (test code = 2181093330) 0.12 10*3/uL 0.00-0.06 H LYMPH x10^3 (test code = 731-0) 0.68 10*3/uL 1.32-3.29 L MONO x10^3 (test code = 742-7) 0.61 10*3/uL 0.33-0.92 EOS x10^3 (test code = 711-2) 0.03-0.39 L BASO x10^3 (test code = 704-7) 0.01-0.07 Lab Interpretation (test code = 59511-9) Abnormal [facility] with Myxt3422-74-69 08:24:03* Test Item Value Reference Range Interpretation [...] g/dL 31.6-35.1 L RDW-SD (test code = 89478-0) 66.0 fL 39.0-49.9 H RDW-CV (test code = 788-0) 22.5 % 12.0-15.5 H PLT (test code = 777-3) 204 166-358 MPV (test code = 32698-1) 9.8 fL 9.5-12.9 NRBC/100 WBC (test code = 8269734243) 2.4 0.0-10.0 NRBC x10^3 (test code = 6050415542) 0.17 See_Comment [Automated messa ge] The system which generated this result transmitted reference range: 10*3/?L. The reference range was not used to interpret this result as normal/abnormal. GRAN MAT (NEUT) % (test code = 770-8) 80.3 % IMM GRAN % (test code = 3910555610) 1.70 % LYMPH % (test code = 736-9) 9.5 % MONO % (test code = 5905-5) 8.5 % EOS % (test code = 713-8) 0.0 % BASO % (test code = 706-2) 0.0 % GRAN MAT x10^3(ANC) (test code = 2800420523) 5.77 10*3/uL 1.88-7.09 IMM GRAN x10^3 (test code = 2282179149) 0.12 10*3/uL 0.00-0.06 H LYMPH x10^3 (test code = 731-0) 0.68 10*3/uL 1.32-3.29 L MONO x10^3 (test code = 742-7) 0.61 10*3/uL 0.33-0.92 EOS x10^3 (test code = 711-2) 0.03-0.39 L BASO x10^3 (test code = 704-7) 0.01-0.07 Lab Interpretation (test code = 15767-5) [facility] Gszrn9525-22-58 08:04:10* Test Item Value Reference Range Interpretation Comme nts LACTIC ACID (test code = 7313996491) 4.15 mmol/L 0.50-2.20 H Lab Interpretation (test cod e = 15509-9) [facility] Ppsvx5882-25-36 08:04:10* Test Item Value Reference Range Interpretation Comme nts LACTIC ACID (test code = 4746239922) 4.15 mmol/L 0.50-2.20 H Lab Interpretation (test cod e = 99901-2) [facility] Cpyfb5274-60-09 08:04:10* Test Item Value Reference Range Interpretation Comme nts LACTIC ACID (test code = 6508471477) 4.15 mmol/L 0.50-2.20 H Lab Interpretation (test cod e = 47286-1) [facility] Hclzt5638-12-03 05:11:29* Test Item Value Reference Range Interpretation Comme nts LACTIC ACID (test code = 3689856634) 4.23 mmol/L 0.50-2.20 H Lab Interpretation (test cod e = 77917-6) [facility] Pbdjl4546-30-69 05:11:29* Test Item Value Reference Range Interpretation Comme nts LACTIC ACID (test code = 2281478438) 4.23 mmol/L 0.50-2.20 H Lab Interpretation (test cod e = 17715-0) [facility] Skkyg2997-44-15 05:11:29* Test Item Value Reference Range Interpretation Comme nts LACTIC ACID (test code = 5243389936) 4.23 mmol/L 0.50-2.20 H Lab Interpretation (test cod e = 74335-8) [facility]normal [facility] Nysuc7753-93-08 03:16:26* Test Item Value Reference Range Interpretation Comme nts LACTIC ACID (test code = 0325690449) 3.66 mmol/L 0.50-2.20 H Lab Interpretation (test cod e = 83394-9) [facility]normal [facility] Peszw8248-20-99 03:16:26* Test Item Value Reference Range Interpretation Comme nts LACTIC ACID (test code = 6680940710) 3.66 mmol/L 0.50-2.20 H Lab Interpretation (test cod e = 49681-5) [facility] Wzncn2515-05-84 03:16:26* Test Item Value Reference Range Interpretation Comme nts LACTIC ACID (test code = 0050883801) 3.66 mmol/L 0.50-2.20 H Lab Interpretation (test cod e = 18991-5) [facility] Qyrxo5613-71-73 01:21:56* Test Item Value Reference Range Interpretation Comme nts LACTIC ACID (test code = 2479018198) 3.68 mmol/L 0.50-2.20 H Lab Interpretation (test cod e = 88526-9) [facility] Jkgjo4935-18-12 01:21:56* Test Item Value Reference Range Interpretation Comme nts LACTIC ACID (test code = 1455459621) 3.68 mmol/L 0.50-2.20 H Lab Interpretation (test cod e = 07558-2) [facility]normal [facility] Pxysr1890-89-97 01:21:56* Test Item Value Reference Range Interpretation Comme nts LACTIC ACID (test code = 2415523201) 3.68 mmol/L 0.50-2.20 H Lab Interpretation (test cod e = 11688-1) Abnormal [facility] GLUCOSE (AUTOMATED)2023-11-23 01:07:13* Test Item Value Reference Range Interpretation Comme nts POCT GLU (test code = 6879757940) 193 mg/dL 70-110 H Lab Interpretation (test cod e = 21835-3) Abnormal [facility] GLUCOSE (AUTOMATED)2023-11-23 01:07:13* Test Item Value Reference Range Interpretation Comme nts POCT GLU (test code = 5397749691) 193 mg/dL 70-110 H Lab Interpretation (test cod e = 01040-8) Abnormal [facility] GLUCOSE (AUTOMATED)2023-11-23 01:07:13* Test Item Value Reference Range Interpretation Comme nts POCT GLU (test code = 1468913319) 193 mg/dL 70-110 H Lab Interpretation (test cod e = 55857-1) [facility] Mzfdj4343-06-14 23:56:10* Test Item Value Reference Range Interpretation Comme nts LACTIC ACID (test code = 1738576540) 3.82 mmol/L 0.50-2.20 H Lab Interpretation (test cod e = 43870-9) [facility] Ertny4126-48-45 23:56:10* Test Item Value Reference Range Interpretation Comme nts LACTIC ACID (test code = 1965506482) 3.82 mmol/L 0.50-2.20 H Lab Interpretation (test cod e = 67963-0) [facility] Vivzf0198-50-44 23:56:10* Test Item Value Reference Range Interpretation Comme nts LACTIC ACID (test code = 6656627271) 3.82 mmol/L 0.50-2.20 H Lab Interpretation (test cod e = 01992-4) Abnormal [facility] GLUCOSE (AUTOMATED)2023-11-22 22:00:27* Test Item Value Reference Range Interpretation Comme nts POCT GLU (test code = 7999947939) 218 mg/dL 70-110 H Lab Interpretation (test cod e = 88980-9) Abnormal [facility] GLUCOSE (AUTOMATED)2023-11-22 22:00:27* Test Item Value Reference Range Interpretation Comme nts POCT GLU (test code = 3310003720) 218 mg/dL 70-110 H Lab Interpretation (test cod e = 99704-1) [facility]2023-11-22 22:00:27* Test Item Value Reference Range Interpretation Comme nts POCT GLU (test code = 9490036666) 218 mg/dL 70-110 H Lab Interpretation (test cod e = 33753-0) [facility]normal [facility] Shsxv9585-55-11 21:49:39* Test Item Value Reference Range Interpretation Comme nts LACTIC ACID (test code = 1846442022) 4.40 mmol/L 0.50-2.20 H Lab Interpretation (test cod e = 84390-4) [facility]normal [facility] Blnme0760-02-11 21:49:39* Test Item Value Reference Range Interpretation Comme nts LACTIC ACID (test code = 0516166764) 4.40 mmol/L 0.50-2.20 H Lab Interpretation (test cod e = 82675-2) [facility]normal [facility] Beasj0349-11-43 21:49:39* Test Item Value Reference Range Interpretation Comme nts LACTIC ACID (test code = 6906864664) 4.40 mmol/L 0.50-2.20 H Lab Interpretation (test cod e = 59091-4) Abnormal [facility] GLUCOSE (AUTOMATED)2023-11-22 21:02:20* Test Item Value Reference Range Interpretation Comme nts POCT GLU (test code = 0982715337) 208 mg/dL 70-110 H Lab Interpretation (test cod e = 32982-1) Abnormal [facility] GLUCOSE (AUTOMATED)2023-11-22 21:02:20* Test Item Value Reference Range Interpretation Comme nts POCT GLU (test code = 0613068943) 208 mg/dL 70-110 H Lab Interpretation (test cod e = 46754-0) Abnormal [facility] GLUCOSE (AUTOMATED)2023-11-22 21:02:20* Test Item Value Reference Range Interpretation Comme nts POCT GLU (test code = 3135846188) 208 mg/dL 70-110 H Lab Interpretation (test cod e = 60660-6) [facility] Ncbmm5937-70-83 20:01:46* Test Item Value Reference Range Interpretation Comme nts LACTIC ACID (test code = 5060496465) 6.14 mmol/L 0.50-2.20 H Lab Interpretation (test cod e = 07328-6) [facility] Tphag7952-95-94 20:01:46* Test Item Value Reference Range Interpretation Comme nts LACTIC ACID (test code = 7126464455) 6.14 mmol/L 0.50-2.20 H Lab Interpretation (test cod e = 06729-5) [facility] Dxgti7793-82-37 20:01:46* Test Item Value Reference Range Interpretation Comme nts LACTIC ACID (test code = 7605128382) 6.14 mmol/L 0.50-2.20 H Lab Interpretation (test cod e = 61644-8) Abnormal [facility] ABDOMEN JPZGENQ5383-82-52 18:29:14 Procedure: ? RIGHT UPPER QUADRANT ULTRASOUND [...] are sonographically unremarkable inappearance. ?No evidence to ascites.[facility] ABDOMEN LIMITED 2023-11-22 18:29:14Procedure: ? RIGHT UPPER [...] unremarkable inappearance. ?No evidence to ascites.[facility] Transthoracic echo (TTE)2023-11-22 18:16:22* Test Item Value Reference Range Interpretation Comme nts Height (test code = 8238745296) 63 in Weight (test code = 4426339948) 208 lbs Systolic BP (test code = 3688912995) 146 mmHg Diastolic BP (test code = 0972509814) 103 mmHg Heart Rate (test code = 7950548207) 112 bpm BSA (test code = 8074116767) 1.97 m2 LVOT diameter (test code = 1372749784) 2.5 cm LVOT area (test code = 9079329844) 5.00 cm2 LA size (test code = 6173401547) 4.2 cm MV Peak E Evette (test code = 4986696541) 128.5 cm/s MV Peak A Evette (test code = 0148147600) 62.4 cm/s E/A ratio (test code = 2234664559) 2.06 ratio E wave decelartion time (test code = 6920014893) 0.12 s MV Prop V (test code = 3843806635) 38.00 cm/s LAV(MOD-sp4) (test code = 6789951331) 68.70 mL Tapse (test code = 8335703952) 0.7 cm LA Volume Index (BP) (test code = 0343859189) 34.6 mL/m2 LA volume (BP) (test code = 3122124942) 68.0 mL LAV(MOD-sp2) (test code = 3351552665) 66.30 mL Ao peak evette (test code = 9540938312) 124.9 cm/s Ao max PG (test code = 8034290473) 6.20 mm[Hg] AV peak gradient (test code = 3617699023) 6.2 mmHg LVOT stroke volume (test code = 2644716052) 42.40 cm3 LVOT peak evette (test code = 1534876886) 67.8 cm/s LVOT mn grad (test code = 8332636398) 0.9 mmHg AV LVOT peak gradient (test code = 7224322312) 1.84 mmHg LVOT peak VTI (test code = 8631709978) 8.4 cm AV area peak evette (test code = 9068315959) 2.7 cm2 LV V1 mean (test code = 5571316358) 43.20 cm/s TR Peak Evette (test code = 2504527684) 247.7 cm/s Triscuspid Valve Regurgitation Peak Gradient (test code = 5452926727) 24.5 mmHg MR max PG (test code = 8174395144) 85.20 mm[Hg] MR max evette (test code = 0203171361) 461.50 cm/s Mr max evtete (test code = 2616293159) 461.5 m/s AV regurgitation pressure 1/2 time (test code = 7338616351) 305.5 ms AI dec slope (test code = 1318497657) 432.10 cm/s2 AI max evette (test code = 8991147392) 450.60 cm/s AI max PG (test code = 4333447074) 81.20 mm[Hg] LVIDD (test code = 8897555767) 5.00 cm Left Ventricular End Diastolic Volume by Teichholz Method (test code = 3522060) 116.6 mL IVS (test code = 4779911433) 0.93 cm Interventricular Septum Diastolic Thickness by 2D (test code = 5414123) 0.93 cm LVPWD (test code = 6894182312) 1.00 cm PW (test code = 1024980361) 1.00 cm 0.6-1.1 EF(Teich) (test code = 7641274825) 33.90 % LVIDS (test code = 5017415455) 4.20 cm Left Ventricular End Systolic Volume by Teichholz Method (test code = 3403672) 77.1 mL FS (test code = 3797653533) 16 % EF - 2D (test code = 10046798) 33.90 % Radiology Study observation (narrative) (test code = 18156-3) LYNDSAY (test code = LYNDSAY) ?Left?Ventricle: Left [...] Definity ultrasound enhancing agent used. [facility] 18:16:22* Test Item Value Reference Range Interpretation Comme nts Height (test code = 3370586460) 63 in Weight (test code = 6780079870) 208 lbs Systolic BP (test code = 9419294843) 146 mmHg Diastolic BP (test code = 8003361465) 103 mmHg Heart Rate (test code = 9127636634) 112 bpm BSA (test code = 2334020833) 1.97 m2 LVOT diameter (test code = 2211078903) 2.5 cm LVOT area (test code = 4851421668) 5.00 cm2 LA size (test code = 2353847774) 4.2 cm MV Peak E Evette (test code = 4742771461) 128.5 cm/s MV Peak A Evette (test code = 2611325001) 62.4 cm/s E/A ratio (test code = 5992537123) 2.06 ratio E wave decelartion time (test code = 8693246402) 0.12 s MV Prop V (test code = 2846259943) 38.00 cm/s LAV(MOD-sp4) (test code = 1889729800) 68.70 mL Tapse (test code = 7957404072) 0.7 cm LA Volume Index (BP) (test code = 2757918147) 34.6 mL/m2 LA volume (BP) (test code = 9240244049) 68.0 mL LAV(MOD-sp2) (test code = 6723594041) 66.30 mL Ao peak evette (test code = 8535505225) 124.9 cm/s Ao max PG (test code = 9820228569) 6.20 mm[Hg] AV peak gradient (test code = 6864557223) 6.2 mmHg LVOT stroke volume (test code = 3751123564) 42.40 cm3 LVOT peak evette (test code = 3850389452) 67.8 cm/s LVOT mn grad (test code = 7575790082) 0.9 mmHg AV LVOT peak gradient (test code = 1389161084) 1.84 mmHg LVOT peak VTI (test code = 4246299762) 8.4 cm AV area peak evette (test code = 5655751976) 2.7 cm2 LV V1 mean (test code = 5383354215) 43.20 cm/s TR Peak Evette (test code = 4405337188) 247.7 cm/s Triscuspid Valve Regurgitation Peak Gradient (test code = 2579351093) 24.5 mmHg MR max PG (test code = 7886332541) 85.20 mm[Hg] MR max evette (test code = 5755911070) 461.50 cm/s Mr max evette (test code = 1501380744) 461.5 m/s AV regurgitation pressure 1/2 time (test code = 3837480092) 305.5 ms AI dec slope (test code = 0567906739) 432.10 cm/s2 AI max evette (test code = 7638432248) 450.60 cm/s AI max PG (test code = 9256867646) 81.20 mm[Hg] LVIDD (test code = 8479620253) 5.00 cm Left Ventricular End Diastolic Volume by Teichholz Method (test code = 0319956) 116.6 mL IVS (test code = 0510106588) 0.93 cm Interventricular Septum Diastolic Thickness by 2D (test code = 7291480) 0.93 cm LVPWD (test code = 7074254936) 1.00 cm PW (test code = 7443731379) 1.00 cm 0.6-1.1 EF(Teich) (test code = 9108102317) 33.90 % LVIDS (test code = 7561262241) 4.20 cm Left Ventricular End Systolic Volume by Teichholz Method (test code = 2604737) 77.1 mL FS (test code = 4474994922) 16 % EF - 2D (test code = 47537286) 33.90 % Radiology Study observation (narrative) (test code = 96193-0) LYNDSAY (test code = LYNDSAY) ?Left?Ventricle: Left [...] Definity ultrasound enhancing agent used. [facility] Vrcrs5459-15-98 17:29:30* Test Item Value Reference Range Interpretation Comme nts LACTIC ACID (test code = 0448306276) 4.00 mmol/L 0.50-2.20 H QUES Lab Interpretation (test cod e = 93783-3) [facility] Rkrgq5706-97-95 17:29:30* Test Item Value Reference Range Interpretation Comme nts LACTIC ACID (test code = 3374615160) 4.00 mmol/L 0.50-2.20 H QUES Lab Interpretation (test cod e = 12985-4) [facility] Kzxzg7684-33-15 17:29:30* Test Item Value Reference Range Interpretation Comme nts LACTIC ACID (test code = 4627350413) 4.00 mmol/L 0.50-2.20 H QUES Lab Interpretation (test cod e = 62714-2) Abnormal [facility] GLUCOSE (AUTOMATED)2023-11-22 17:01:27* Test Item Value Reference Range Interpretation Comme nts POCT GLU (test code = 7865474981) 152 mg/dL 70-110 H Notified Provide r Lab Interpretation (test code = 69744-8) Abnormal [facility] GLUCOSE (AUTOMATED)2023-11-22 17:01:27* Test Item Value Reference Range Interpretation Comme nts POCT GLU (test code = 5791986427) 152 mg/dL 70-110 H Notified Provide r Lab Interpretation (test code = 51480-9) Abnormal [facility] GLUCOSE (AUTOMATED)2023-11-22 17:01:27* Test Item Value Reference Range Interpretation Comme nts POCT GLU (test code = 9912124673) 152 mg/dL 70-110 H Notified Provide r Lab Interpretation (test code = 91923-6) Abnormal [facility] Cmwdr6472-99-34 16:28:02* Test Item Value Reference Range Interpretation Comme nts IRON (test code = 9540020609) 44 ug/dL 50-160 L TIBC (test code = 8085570633) 395 ug/dL 250-410 % FE SAT (test code = 1562334543) 11 % 20-50 L Lab Interpretation (test cod e = 81971-2) Abnormal [facility] Mxakp9757-05-37 16:28:02* Test Item Value Reference Range Interpretation Comme nts IRON (test code = 5316655677) 44 ug/dL 50-160 L TIBC (test code = 4512861996) 395 ug/dL 250-410 % FE SAT (test code = 2228946946) 11 % 20-50 L Lab Interpretation (test cod e = 50907-6) [facility] Kbuud1128-91-52 16:28:02* Test Item Value Reference Range Interpretation Comme nts IRON (test code = 5193178837) 44 ug/dL 50-160 L TIBC (test code = 7522200975) 395 ug/dL 250-410 % FE SAT (test code = 8647860611) 11 % 20-50 L Lab Interpretation (test cod e = 74658-0) Abnormal [facility]. Metabolic Panel ([id number])2023-11-22 16:20:58* Test Item Value Reference Range Interpretation Comme nts NA (test code = 7288127095) 135 mmol/L 135-145 K (test code = 2424685959) 4.0 mmol/L 3.5-5.0 Slight hemolysis CL (test code = 0125833303) 108 mmol/L 98-108 CO2 TOTAL (test code = 8652830938) 20 mmol/L 23-31 L AGAP (test code = 5113877440) 7 2-16 BUN (test code = 2590150027) 20 mg/dL 7-23 Slight hemolysis GLUCOSE (test code = 4276509813) 136 mg/dL 70-110 H CREATININE (test code = 2160-0) 0.48 mg/dL 0.50-1.04 L TOTAL BILI (test code = 4006350335) 0.8 mg/dL 0.1-1.1 CALCIUM (test code = 4564053519) 6.7 mg/dL 8.6-10.6 L T PROTEIN (test code = 4864310918) 5.6 g/dL 6.3-8.2 L ALBUMIN (test code = 3751321839) 3.1 g/dL 3.5-5.0 L ALK PHOS (test code = 4560005772) 282 U/L 34-122 H Slight hemolysis ALTv (test code = 1742-6) 196 U/L 5-35 H AST(SGOT) (test code = 3918259700) 56 U/L 13-40 H Slight hemolysis eGFR (test code = 66067-8) 114.8 mL/min/1.73m2 CKD-EPI eGFR (2020). Assuming creatinine has been stable day-to-day for at least three months, the eGFR indicates Category G1 (>= 90 mL/min/1.73 m2) Lab Interpretation (test code = 20791-0) Abnormal [facility] Metabolic Panel (65301)2023-11-22 16:20:58* Test Item Value Reference Range Interpretation Comme nts NA (test code = 2336698472) 135 mmol/L 135-145 K (test code = 2157772132) 4.0 mmol/L 3.5-5.0 Slight hemolysis CL (test code = 9440534329) 108 mmol/L 98-108 CO2 TOTAL (test code = 2928007505) 20 mmol/L 23-31 L AGAP (test code = 0819265282) 7 2-16 BUN (test code = 0359189525) 20 mg/dL 7-23 Slight hemolysis GLUCOSE (test code = 7780613455) 136 mg/dL 70-110 H CREATININE (test code = 2160-0) 0.48 mg/dL 0.50-1.04 L TOTAL BILI (test code = 9107763764) 0.8 mg/dL 0.1-1.1 CALCIUM (test code = 2200104586) 6.7 mg/dL 8.6-10.6 L T PROTEIN (test code = 5597587226) 5.6 g/dL 6.3-8.2 L ALBUMIN (test code = 4372155411) 3.1 g/dL 3.5-5.0 L ALK PHOS (test code = 0435878936) 282 U/L 34-122 H Slight hemolysis ALTv (test code = 1742-6) 196 U/L 5-35 H AST(SGOT) (test code = 8100087554) 56 U/L 13-40 H Slight hemolysis eGFR (test code = 25842-4) 114.8 mL/min/1.73m2 CKD-EPI eGFR (2020). Assuming creatinine has been stable day-to-day for at least three months, the eGFR indicates Category G1 (>= 90 mL/min/1.73 m2) Lab Interpretation (test code = 56627-6) Abnormal [facility] Metabolic Panel (75885)2023-11-22 16:20:58* Test Item Value Reference Range Interpretation Comme nts NA (test code = 7119197917) 135 mmol/L 135-145 K (test code = 5241398006) 4.0 mmol/L 3.5-5.0 Slight hemolysis CL (test code = 4148895131) 108 mmol/L 98-108 CO2 TOTAL (test code = 3121479440) 20 mmol/L 23-31 L AGAP (test code = 3298394583) 7 2-16 BUN (test code = 4183464154) 20 mg/dL 7-23 Slight hemolysis GLUCOSE (test code = 8691071647) 136 mg/dL 70-110 H CREATININE (test code = 2160-0) 0.48 mg/dL 0.50-1.04 L TOTAL BILI (test code = 2458993232) 0.8 mg/dL 0.1-1.1 CALCIUM (test code = 0475322364) 6.7 mg/dL 8.6-10.6 L T PROTEIN (test code = 9527703379) 5.6 g/dL 6.3-8.2 L ALBUMIN (test code = 5166522462) 3.1 g/dL 3.5-5.0 L ALK PHOS (test code = 9319172684) 282 U/L 34-122 H Slight hemolysis ALTv (test code = 1742-6) 196 U/L 5-35 H AST(SGOT) (test code = 7693395823) 56 U/L 13-40 H Slight hemolysis eGFR (test code = 96779-8) 114.8 mL/min/1.73m2 CKD-EPI eGFR (2020). Assuming creatinine has been stable day-to-day for at least three months, the eGFR indicates Category G1 (>= 90 mL/min/1.73 m2) Lab Interpretation (test code = 33904-9) [facility] [id number] 15:51:03PROCEDURE: CT ANGIO CHEST WITH CONTRAST - [...] left adrenal 2.7cm nodule suspected. [facility] [id number] 15:51:03PROCEDURE: CT ANGIO CHEST WITH CONTRAST - [...] left adrenal 2.7cm nodule suspected. [facility] Whole [id number] 14:33:11* Test Item Value Reference Range Interpretation Comme nts LACTIC ACID (test code = 8451326254) 4.04 mmol/L 0.50-2.20 H QUES Lab Interpretation (test cod e = 98695-6) [facility] [id number] 14:33:11* Test Item Value Reference Range Interpretation Comme nts LACTIC ACID (test code = 0391079778) 4.04 mmol/L 0.50-2.20 H QUES Lab Interpretation (test cod e = 99902-8) [facility]normal [facility] Acid Whole [id number] 14:33:11* Test Item Value Reference Range Interpretation Comme nts LACTIC ACID (test code = 5813406527) 4.04 mmol/L 0.50-2.20 H QUES Lab Interpretation (test cod e = 92853-0) Abnormal [facility] GLUCOSE (AUTOMATED)2023-11-22 13:26:51* Test Item Value Reference Range Interpretation Comme nts POCT GLU (test code = 7366174579) 180 mg/dL 70-110 H Notified Provide r Lab Interpretation (test code = 80412-5) Abnormal [facility] GLUCOSE (AUTOMATED)2023-11-22 13:26:51* Test Item Value Reference Range Interpretation Comme nts POCT GLU (test code = 4852378083) 180 mg/dL 70-110 H Notified Provide r Lab Interpretation (test code = 62356-6) Abnormal [facility] GLUCOSE (AUTOMATED)2023-11-22 13:26:51* Test Item Value Reference Range Interpretation Comme nts POCT GLU (test code = 1582574530) 180 mg/dL 70-110 H Notified Provide r Lab Interpretation (test code = 95421-7) Abnormal [facility] SHOULDER 2+ VW [id number] 09:05:30 Exam: XR SHOULDER 2+ VW RIGHT, 11/22/2023 1:45 AM. Ordering Physician: IVIS MCDERMOTT. History: R arm injury . Technique: Routine view(s) XR SHOULDER 2+ VW RIGHT. Comparison: None. Findings: No evidence of traumatic malalignment. No acute fracture. 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 Eburnation of thegreater tuberosity, sequela of chronic rotator cuff injury. No focalsofttissue swelling. Lungs are clear as visualized. Cervical fusion. [facility] SHOULDER 2+ VW [id number] 09:05:30 Exam: XR SHOULDER 2+ VW RIGHT, 11/22/2023 1:45 AM. Ordering Physician: IVIS MCDERMOTT. History: R arm injury . Technique: Routine view(s) XR SHOULDER 2+ VW RIGHT. Comparison: None. Findings: No evidence of traumatic malalignment. No acute fracture. 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 Eburnation of thegreater tuberosity, sequela of chronic rotator cuff injury. No focalsofttissue swelling. Lungs are clear as visualized. Cervical fusion. [facility] LOWER EXTREMITY VEIN WITH COMPRESSION BILATERAL (ONLY [...] waveforms on the right. No DVT on theleft.[facility] LOWER EXTREMITY VEIN WITH COMPRESSION BILATERAL (ONLY [...] the right. No DVT on theleft.[facility] 2023-11-22 08:16:23* Test Item Value Reference Range Interpretation Comme nts LACTIC ACID (test code = 5057162859) 3.93 mmol/L 0.50-2.20 H Lab Interpretation (test cod e = 05512-2) Abnormal [facility] HospitalL[facility] Whole [id number] 08:16:23* Test Item Value Reference Range Interpretation Comme nts LACTIC ACID (test code = 3662273916) 3.93 mmol/L 0.50-2.20 H Lab Interpretation (test cod e = 76696-6) Abnormal [facility] HospitalL[facility] Whole Zadsi5814-00-94 08:16:23* Test Item Value Reference Range Interpretation Comme nts LACTIC ACID (test code = 0978062946) 3.93 mmol/L 0.50-2.20 H Lab Interpretation (test cod e = 21774-3) Abnormal [facility] HospitalProthrombin Time / [id number] 05:00:31* Test Item Value Reference Range Interpretation Comme [facility] PROTIME PATIENT (test code = 5964-2) 15.4 10.1-12.6 H INR (test code = 6301-6) 1.3 Normal INR <1.1; Warfarin Therapeutic range 2.0 to 3.0 or 2.5 to 3.5, depending upon the indications. Lab Interpretation (test code = 50390-8) Abnormal [facility] HospitalaPTT2024-05-05 05:00:31* Test Item Value Reference Range Interpretation Comme [facility] APTT Patient (test code = 3173-2) 27 26-36 LYNDSAY (test code = LYNDSAY) The [facility] patient population mean normal value for aPTT is 30 seconds. Lab Interpretation (test code = 26211-4) Normal [facility] HospitalProthrombin Time / [id number] 05:00:31* Test Item Value Reference Range Interpretation Comme [facility] PROTIME PATIENT (test code = 5964-2) 15.4 10.1-12.6 H INR (test code = 6301-6) 1.3 Normal INR <1.1; Warfarin Therapeutic range 2.0 to 3.0 or 2.5 to 3.5, depending upon the indications. Lab Interpretation (test code = 81410-5) Abnormal [facility]aPTT2024-05-05 05:00:31* Test Item Value Reference Range Interpretation Comme nts APTT Patient (test code = 3173-2) -36 LYNDSAY (test code = LYNDSAY) The [facility] patient population mean normal value for aPTT is 30 seconds. Lab Interpretation (test code = 45615-1) Normal [facility] HospitalProthrombin Time / [id number] 05:00:31* Test Item Value Reference Range Interpretation Comme [facility] PROTIME PATIENT (test code = 5964-2) 15.4 10.1-12.6 H INR (test code = 6301-6) 1.3 Normal INR <1.1; Warfarin Therapeutic range 2.0 to 3.0 or 2.5 to 3.5, depending upon the indications. Lab Interpretation (test code = 00626-2) [facility] 05:00:31* Test Item Value Reference Range Interpretation Comme [facility] APTT Patient (test code = 3173-2) -36 LYNDSAY (test code = LYNDSAY) The [facility] patient population mean normal value for aPTT is 30 seconds. Lab Interpretation (test code = 35057-9) Normal [facility] HospitalThyroid Stimulating Rdyfnyp7119-05-80 04:25:31 * Test Item Value Reference Range Interpretation Comme nts TSH (test code = 9485462046) 5.26 0.45-4.70 H Lab Interpretation (test cod e = 10810-2) Abnormal [facility] HospitalThyroid Stimulating Twdqsrp1489-85-77 04:25:31 * Test Item Value Reference Range Interpretation Comme nts TSH (test code = 3461453853) 5.26 0.45-4.70 H Lab Interpretation (test cod e = 05269-0) Abnormal [facility] HospitalThy[facility] Stimulating Qxfykfr3222-67-90 04:25:31 * Test Item Value Reference Range Interpretation Comme nts TSH (test code = 1244950996) 5.26 0.45-4.70 H Lab Interpretation (test cod e = 62567-1) [facility] Nstr7026-59-79 04:18:14Megan Rondon MD ? ? 11/21/2023 11:18 [...] of separately billable procedures and treating other patients.[facility] [id number] 04:11:28* Test Item Value Reference Range Interpretation Comme nts FREE T4 (test code = 4659508874) 1.07 0.78-2.20 Lab Interpretation (test cod e = 71900-7) Normal [facility] [id number] 04:11:28* Test Item Value Reference Range Interpretation Comme nts FREE T4 (test code = 7968867958) 1.07 0.78-2.20 Lab Interpretation (test cod e = 64097-1) Normal [facility] 04:11:28* Test Item Value Reference Range Interpretation Comme nts FREE T4 (test code = 9446422468) 1.07 0.78-2.20 Lab Interpretation (test cod e = 00470-4) Normal [facility] HospitalXR CHEST 1 [id number] 03:22:56Exam: Chest (1 View), 11/21/2023 9:15 PM. Ordering Physician: MEGAN RONDON. History: Chest pain. Technique: One view of the chest. Comparison: 12/11/2022. Findings: Cardiac silhouette is moderately enlarged. There is no pneumothorax. Thereis no consolidation or pleural effusion. Stable mild diffuse interstitialopacities are noted. Pleural and diaphragmatic contours are normal. Changesof anterior ce rvical discectomy and fusion are seen.[facility] HospitalXR CHEST 1 [id number] 03:22:56Exam: Chest (1 View), 11/21/2023 9:15 PM. Ordering Physician: MEGAN RONDON. History: Chest pain. Technique: One view of the chest. Comparison: 12/11/2022. Findings: Cardiac silhouette is moderately enl arged. There is no pneumothorax. Thereis no consolidation or pleural effusion. Stable mild diffuse interstitialopacities are noted. Pleural and diaphragmatic contours are normal. Changesof anterior cervical discectomy and fusion are seen. [facility] HospitalBLOOD [id number] 07:00:10* Test Item Value Reference Range Interpretation Comme nts CULTURE (BEAKER) (test code = 1095) No growth in 5 days XR KNEE 3 VIEWS LEFT Non-Weight Lmofqip1133-52-16 09:27:00XR KNEE 3 VIEWS LEFT CLINICAL INDICATION: S/p fall COMPARISON: None FINDINGS: 3views of the left kne e. There is no fracture or malalignment. The femorotibial andfemoropatellar joint spaces are intact. No joint fluid is demonstrated.Surrounding soft tissues are unremarkable. Scattered atheroscleroticvascular calcifications.[facility]XR [facility]IE[facility] LEFT Non-Weight Tibvxtg1683-53-54 09:27:00XR KNEE 3 VIEWS LEFT CLINICAL INDICATION: S/p fall COMPARISON: None FINDINGS: 3views of the left knee. There is no fracture or malalignment. The femorotibial andfemoropatellar joint spaces are intact. No joint fluid is demonstrated.Surrounding soft tissues are unremarkable. Scattered atheroscleroticvascular calcifications.[facility] HospitalXR KNEE 3 VIEWS [id number] 09:27:00 [facility] 1970 Sex: FXR KNEE 3 VIEWS LEFT CLINICAL INDICATION: S/p fall COMPARISON: NoneFINDINGS: 3views of the left knee.There is no fracture or malalignment. The femorotibial andfemoropatellar joint spaces are intact.No joint fluid is demonstrated.Surrounding soft tissues are unremarkable. Scattered atheroscleroticvascular calcifications.IMPRESSION: No acute fracture or malalignment of the knee Electronically Signed By: Maxim Sultana09/08/2023 09:29 CDTWorkstation Name: [id number] kecoh4272-35-37 08:53:50* Test Item Value Reference Range Interpretation Comme [facility] POC-Glucose Meter (test code = 1538) 101 mg/dL 70-110 : TESTED AT [facility] [address] [facility], [address]: Publication Editor/Network Security Officer ID = [id number] for [place], [place]umbu Lab Interpretation (test code = 46501-2) Normal [facility] HospitalPOC-Glucose akzuh8292-25-31 08:53:50* Test Item Value Reference Range Interpretation Comme [facility] POC-Glucose Meter (test code = 1538) 101 mg/dL 70-110 : TESTED AT [facility] [address] [facility], [address]: Publication Editor/Network Security Officer ID = [id number] for Umeh, Akumbu Lab Interpretation (test code = 17707-8) Normal [facility] HospitalPOCT-GLUCOSE [id number] 08:53:50* Test Item Value Reference Range Interpretation Comme nts POC-GLUCOSE METER (BEAKER) (test code = 1538) 101 mg/dL 70-110 : TESTED AT [facility] [address] [facility], [address]: Publication Editor/Network Security Officer ID = [id number] for Marie Delacruz BASIC METABOLIC [id number] 05:40:45* Test Item Value Reference Range Interpretation [...] GFR is not applicable for dialysis patients Publication Editor ID - [id number] 05:40:45* Test Item Value Reference Range Interpretation Comme nts MAGNESIUM (BEAKER) (test cod e = 627) 2.1 mg/dL 1.6-2.6 Publication Editor ID - [id number] 05:40:45* Test Item Value Reference Range Interpretation Comme nts PHOSPHORUS (BEAKER) (test co de = 604) 5.0 mg/dL 2.3-4.7 H Publication Editor ID - ADMINCBC W/PLT COUNT & AUTO [id number] 04:49:23* Test Item Value Reference Range Interpretation [...] code = 2801) 0.40 % 0.00-1.00 POCT-GLUCOSE [id number] 21:40:23* Test Item Value Reference Range Interpretation Comme nts POC-GLUCOSE METER (BEAKER) (test code = 1538) 144 mg/dL 70-110 H : TESTED AT [facility] [address] [facility], [address]: Publication Editor/Network Security Officer ID = [id number] for Diana Baeza Venous doppler legs svkpakuug8160-62-92 14:27:12PV LAB - Lower Extremities DVT Study Demographics Patient Name YUE ROMERO Date of Study 09/07/2023 ESTELLE Age 53 Visit Number [id number] Gender Female Accession Number [id number] Dateof 1970 Referring EDWARD FERRER Room Number 2263 Physician Associate Material Handler Adalberto Wood Interpreting John Solorio, Physician FellowProcedureType [...] in cm/s ; [facility] legs qgnlmmzey4023-08-62 14:27:12PV LAB - Lower Extremities DVT Study Demographics Patient Name YUE ROMERO Date of Study 09/07/2023 ESTELLE Age 53 Visit Number [id number] Gender Female Accession Number [id number] Dateof 1970 Referring EDWARD FERRER Room Number 6893 Physician Associate Material Handler Adalberto Wood Interpreting John Solorio Physician FellowProcedureType of Study: Veins: Lower Extremities [...] in cm/s ; Diameters are measured in [facility] BGSNDOTLD3210-14-37 04:05:54* Test Item Value Reference Range Interpretation Comme nts MAGNESIUM (BEAKER) (test code = 627) 2.0 mg/dL 1.6-2.6 Specimen sligh tly hemolyzed Publication Editor ID - MADELINE [id number] 04:05:54* Test Item Value Reference Range Interpretation Comme nts PHOSPHORUS (BEAKER) (test code = 604) 4.5 mg/dL 2.3-4.7 Specimen sligh tly hemolyzed Publication Editor ID - MADELINE WBASIC METABOLIC [id number] 04:05:54* Test Item Value Reference Range Interpretation [...] GFR is not applicable for dialysis patients Publication Editor GEOVANNA CORREA WCBC W/PLT COUNT & AUTO [id number] 03:40:48* Test Item Value Reference Range Interpretation [...] code = 2801) 0.30 % 0.00-1.00 POCT-GLUCOSE [id number] 21:28:35* Test Item Value Reference Range Interpretation Comme nts POC-GLUCOSE METER (BEAKER) (test code = 1538) 127 mg/dL 70-110 H : TESTED AT [address], [address]: Publication Editor/Network Security Officer ID = [id number] for Ryan Morin POCT-GLUCOSE [id number] 18:49:21* Test Item Value Reference Range Interpretation Comme nts POC-GLUCOSE METER (BEAKER) (test code = 1538) 122 mg/dL 70-110 H : TESTED AT [address], [address]: Publication Editor/Network Security Officer ID = [id number] for Tyrell Lauren POCT-GLUCOSE [id number] 13:27:27* Test Item Value Reference Range Interpretation Comme nts POC-GLUCOSE METER (BEAKER) (test code = 1538) 130 mg/dL 70-110 H : TESTED AT [address], [address]: Publication Editor/Network Security Officer ID = [id number] for Lauren Santillan [id number] 09:09:14* Test Item Value Reference Range Interpretation Comme nts MAGNESIUM (BEAKER) (test cod e = 627) 2.2 mg/dL 1.6-2.6 [id number] 09:09:14* Test Item Value Reference Range Interpretation Comme nts PHOSPHORUS (BEAKER) (test co de = 604) 4.8 mg/dL 2.3-4.7 H BASIC METABOLIC [id number] 09:09:14* Test Item Value Reference Range Interpretation [...] is not applicable for dialysis patients POCT-GLUCOSE [id number] 08:33:30* Test Item Value Reference Range Interpretation Comme [facility] POC-GLUCOSE METER (BEAKER) (test code = 1538) 132 mg/dL 70-110 H : TESTED AT [facility] [address] [facility] [place], [address]: Publication Editor/Network Security Officer ID = [id number] for Lauren Santillan CBC W/PLT COUNT & AUTO [id number] 05:47:59* Test Item Value Reference Range Interpretation [...] code = 2801) 0.40 % 0.00-1.00 POCT-GLUCOSE [id number] 21:35:37* Test Item Value Reference Range Interpretation Comme nts POC-GLUCOSE METER (BEAKER) (test code = 1538) 129 mg/dL 70-110 H : TESTED AT [facility] [address] [facility], [address]: Publication Editor/Network Security Officer ID = [id number] for Rosa Morinbubba MR Brain Without & With IV Vozsatwr2657-79-14 15:49:58MR BRAIN WITH & WITHOUT IV CONTRAST [...] limits. No obstructive paranasal sinus disease. Additionalfindings: None.[facility] HospitalMR Brain Without & With IV Yslagvpw0717-12-69 15:49:58MR BRAIN WITH & WITHOUT IV CONTRAST [...] limits. No obstructive paranasal sinus disease. Additionalfindings: None.[facility] HospitalMR BRAIN WITH & WITHOUT IV [id number] 15:49:58 [facility] : 1970 Sex: FMR BRAIN [...] Signed By: Zeinab Dempsey09/05/2023 15:53 CDTWorkstation Name: [id number] METER 2023-09-05 08:34:25* Test Item Value Reference Range Interpretation Comme nts POC-GLUCOSE METER (BEAKER) (test code = 1538) 115 mg/dL 70-110 H : TESTED AT [facility] [address] [facility], [address]: Publication Editor/Network Security Officer ID = [id number] for DOMINGA AMADOR BASIC METABOLIC [id number] 06:06:56* Test Item Value Reference Range Interpretation [...] GFR is not applicable for dialysis patients Publication Editor ID - [id number] 06:06:56* Test Item Value Reference Range Interpretation Comme nts MAGNESIUM (BEAKER) (test cod e = 627) 2.2 mg/dL 1.6-2.6 Publication Editor ID - [id number] 06:06:56* Test Item Value Reference Range Interpretation Comme nts PHOSPHORUS (BEAKER) (test co de = 604) 3.8 mg/dL 2.3-4.7 Publication Editor ID - ADMINCBC W/PLT COUNT & AUTO [id number] 05:29:32* Test Item Value Reference Range Interpretation [...] code = 2801) 0.50 % 0.00-1.00 POCT-GLUCOSE [id number] 04:55:18* Test Item Value Reference Range Interpretation Comme nts POC-GLUCOSE METER (BEAKER) (test code = 1538) 99 mg/dL 70-110 : TESTED AT [facility] [address] [facility], [address]: Publication Editor/Network Security Officer ID = [id number] for Rosa Morinn POCT-GLUCOSE [id number] 21:49:23* Test Item Value Reference Range Interpretation Comme nts POC-GLUCOSE METER (BEAKER) (test code = 1538) 124 mg/dL 70-110 H : TESTED AT [place] [address] [facility], [address]: Publication Editor/Network Security Officer ID = [id number] for Mikel Rosan POCT-GLUCOSE [id number] 15:55:53* Test Item Value Reference Range Interpretation Comme nts POC-GLUCOSE METER (BEAKER) (test code = 1538) 126 mg/dL 70-110 H : TESTED AT [place] [address] [facility], [address]: Publication Editor/Network Security Officer ID = [id number] for Tramaine Daniels VHDQEBSOAPNWY4429-08-37 12:37:56* Test Item Value Reference Range Interpretation Comme nts PROCALCITONIN (BEAKER) (test code = 3036) < ng/mL <0.05 SEPSIS RISK (ng/mL)Low: 0.05-0.50Intermediate: 0.51-2.00High: >=2.01SARS- CoV2/Influenza/RSV [id number] 12:18:09* Test Item Value Reference Range Interpretation Comments SARS-COV2/RT-PCR (test code = 44376-5) Negative Negative The SARS-CoV-2 target nucleic acids [...] provider. Influenza A RT-PCR (test code = 98463-9) Negative Negative The Flu A target nucleic acids are not detected in this specimen. Influenza B RT-PCR (test code = 72683-3) Negative Negative The Flu B target nucleic acids are not detected in this specimen. RSV by RT-PCR (test code = 45685-0) Negative Negative The RSV target nucleic acids [...] SARS-CoV-2/Flu/RSV by their healthcare provider. Results from [facility] Xpert Xpress SARS-CoV-2/Flu/RSV test should [...] the Act. Fact Sheet for Healthcare Providers:https://w Promethean/Docu ments/Xpert%20Xpres s%20SARS%20CoV-2/Fa ct%20Sheets/302-390 2%47YVQM-TIU-0%20HE ALTHCARE%20PROVIDER S%20FACT%20SHEET.pd f Fact Sheet for Healthcare Patients:https://maria elena Opposing Views/Docum ents/Xpert%20Xpress %20SARS%20Cov-2/Fac t%20Sheets/302-3801 %00ZVCA-HMF-0%20PAT IENT%20FACT%20SHEET .pdf Lab Interpretation (test code = 30069-5) [facility]RSV QY-[id number] 12:18:09* Test Item Value Reference Range Interpretation Comments SARS-COV2/RT-PCR (test code = 61039-5) Negative Negative The SARS-CoV-2 target nucleic acids [...] provider. Influenza A RT-PCR (test code = 60752-2) Negative Negative The Flu A target nucleic acids are not detected in this specimen. Influenza B RT-PCR (test code = 94653-3) Negative Negative The Flu B target nucleic acids are not detected in this specimen. RSV by RT-PCR (test code = 92968-9) Negative Negative The RSV target nucleic acids [...] the Act. Fact Sheet for Healthcare Providers:https://w ww.ScheduleSoft.Wantster/Docu ments/Xpert%20Xpres s%20SARS%20CoV-2/Fa ct%20Sheets/302-390 2%53SDSV-BUS-3%20HE ALTHCARE%20PROVIDER S%20FACT%20SHEET.pd f Fact Sheet for Healthcare Patients:https://ww w.[employer]/Docum ents/Xpert%20Xpress %20SARS%20Cov-2/Fac t%20Sheets/302-3801 %99QKXI-CSY-3%20PAT IENT%20FACT%20SHEET .pdf Lab Interpretation (test code = 84812-2) Normal [facility]/INFLUENZA/RSV FU-[id number] 12:18:09* Test Item Value Reference Range Interpretation Comme nts SARS-COV2/RT-PCR (test code = 2742009) Negative Negative The SARS-CoV-2 t arget nucleic [...] provider. INFLUENZA A RT-PCR (test code = 7987307) Negative Negative The Flu A target nucleic acids are not detected in this specimen. INFLUENZA B RT-PCR (test code = 9993021) Negative Negative The Flu B target nucleic acids are not detected in this specimen. RSV RT-PCR (test code = 5236594) Negative Negative The RSV target n ucleic [...] SARS-CoV-2/Flu/RSV by their healthcare provider. Results from [facility] Xpert Xpress SARS-CoV-2/Flu/RSV test should [...] 564(g) of the Act.Fact Sheet for Healthcare Providers:https://www.Easy Social Shop/Documents/Xpert%20Xpress%20SARS%20CoV-2/Fact%2 0eets/3023902%78NEVI-RMV-3%20HEALTHCARE%20PROVIDERS%20FACT%20SHEET.pdfFact Sheet for Healthcare Patients:https://ww w.[employer] Shop/Documents/Xpert%20Xpress%20SARS%20Cov-2/Fact%20Sheets/3023801%20S ARS-COV-2%20PATIENT%20FACT%20SHEET.pdfPOCT-GLUCOSE [id number] 11:08:35* Test Item Value Reference Range Interpretation Comme nts POC-GLUCOSE METER (BEAKER) (test code = 1538) 111 mg/dL 70-110 H : TESTED AT [facility] [address] [facility], [address]: Publication Editor/Network Security Officer ID = [id number] for Diana DanielsRangelConstance POCT-GLUCOSE [id number] 08:16:42* Test Item Value Reference Range Interpretation Comme nts POC-GLUCOSE METER (BEAKER) (test code = 1538) 108 mg/dL 70-110 : TESTED AT [facility] [address] [facility] [place], [address]: Publication Editor/Network Security Officer ID = [id number] for Beata Vargas MR spine lumbar without IV akbhbkfe6901-30-60 07:58:49MR LUMBAR SPINE WITHOUT IV CONTRAST, MR [...] Posterior ligament ossifications at the calcifications at Y33-B55kfejtmu moderate spinal canal stenosisPosterior disc osteophyte at the T11-T12 level causing mild spinal canalstenosis The spinal cord is normal in caliber and signal intensity. There is no significant foraminal or spinal canal stenosis. 2.1 x 2.3 cm left adrenal nodule, incompletely characterized Paraspinal soft tissues are unremarkable. Lumbar spine: Postoperative changes from posterior decompression at the L3 and H0pbnkbd. A 1.3 x 1.5 cm (AP by [...] facet arthropathy with moderatebilateral neural foraminal stenosisCHI Vencor HospitalMR spine lumbar without IV fufyebbo5928-76-08 07:58:49MR LUMBAR SPINE WITHOUT IV CONTRAST, MR [...] Posterior ligament ossifications at the calcifications at R43-W84uclpyag moderate spinal canal stenosisPosterior disc osteophyte at the T11-T12 level causing mild spinal canalstenosis The spinal cord is normal in caliber and signal intensity. There is no significant foraminal or spinal canal stenosis. 2.1 x 2.3 cm left adrenal nodule, incompletely characterized Paraspinal soft tissues are unremarkable. Lumbar spine: Postoperative changes from posterior decompression at the L3 and K1obxkee. A 1.3 x 1.5 cm (AP by [...] facet arthropathy with moderatebilateral neural foraminal stenosisCHI Vencor HospitalMR thoracic spine without IV phcqeixx2121-38-89 07:58:49MR LUMBAR SPINE WITHOUT IV CONTRAST, MR [...] Posterior ligament ossifications at the calcifications at Z66-B34cuhcdmh moderate spinal canal stenosisPosterior disc osteophyte at the T11-T12 level causing mild spinal canalstenosis The spinal cord is normal in caliber and signal intensity. There is no significant foraminal or spinal canal stenosis. 2.1 x 2.3 cm left adrenal nodule, incompletely characterized Paraspinal soft tissues are unremarkable. Lumbar spine: Postoperative changes from posterior decompression at the L3 and E2iowwng. A 1.3 x 1.5 cm (AP by [...] facet arthropathy with moderatebilateral neural foraminal stenosisCHI Vencor HospitalMR thoracic spine without IV [id number] 07:58:49MR LUMBAR SPINE WITHOUT IV CONTRAST, MR [...] Posterior ligament ossifications at the calcifications at P81-L91ylwdlma moderate spinal canal stenosisPosterior disc osteophyte at the T11-T12 level causing mild spinal canalstenosis The spinal cord is normal in caliber and signal intensity. There is no significant foraminal or spinal canal stenosis. 2.1 x 2.3 cm left adrenal nodule, incompletely characterized Paraspinal soft tissues are unremarkable. Lumbar spine: Postoperative changes from posterior decompression at the L3 and I9grbkia. A 1.3 x 1.5 cm (AP by [...] facet arthropathy with moderatebilateral neural foraminal stenosisCHI Vencor HospitalMR spine cervical without IV coefkuys9483-77-08 07:58:49MR LUMBAR SPINE WITHOUT IV CONTRAST, MR [...] spinal canal or neural foraminal stenosis Thoracic spine:The vertebral bodies have normal height, alignment, and signalintensity. Mild to moderate spondylosis and facet arthropathy are present withinthe spine. Posterior ligament ossifications at the calcifications at A99-O93obiwheg moderate spinal canal stenosisPosterior disc osteophyte at the T11-T12 level causing mild spinal canalstenosis The spinal cord is normal in caliber and signal intensity. There is no significant foraminal or spinal canal stenosis. 2.1 x 2.3 cm left adrenal nodule, incompletely characterized Paraspinal soft tissues are unremarkable. Lumbar spine: Postoperative changes fromposterior decompression at the L3 and V3nurqvo. 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 The conus medullaris terminates at the L1 level. Paraspinal soft tissue stuctures are unremarkable. Evaluation of the individual levels demonstrates:L1/L2: No significant spinal canal stenosis or neural foraminalnarrowing.L2/L3: Symmetric disc bulgewith mild bilateral neural foraminalstenosis and moderate to [...] facet arthropathy with moderatebilateral neural foraminal stenosisCHI Vencor HospitalMR spine cervical without IV [id number] 07:58:49MR LUMBAR SPINE WITHOUT IV CONTRAST, MR [...] Posterior ligament ossifications at the calcifications at U67-G32rdytxvb moderate spinal canal stenosisPosterior disc osteophyte at the T11-T12 level causing mild spinal canalstenosis The spinal cord is normal in caliber and signal intensity. There is no significant foraminal or spinal canal stenosis. 2.1 x 2.3 cm left adrenal nodule, incompletely characterized Paraspinal soft tissues are unremarkable. Lumbar spine: Postoperative changes from posterior decompression at the L3 and D5hoboir. A 1.3 x 1.5 cm (AP by [...] facet arthropathy with moderatebilateral neural foraminal stenosisCHI Vencor HospitalMR CERVICAL SPINE WITHOUT IV [id number] 07:58:49 [facility] 1970 Sex: [...] ligament ossifications at the calcifications at T10- K95llmfdzh moderate spinal canal stenosisPosterior disc osteophyte at the T11- T12 level causing mild spinal canalstenosisThe spinal cord is normal in caliber and signal intensity. There is no significant foraminal or spinal canal stenosis.2.1 x 2.3 cm left adrenal nodule, incompletely characterizedParaspinal soft tissues are unremarkable.Lumbar spine:Postoperative changes from posterior decompression at the L3 and S2qmgars. A 1.3 x 1.5 cm (AP by [...] Signed By: Maxim Sultana09/04/2023 08:00 CDTWorkstation Name: [id number] THORACIC SPINE WITHOUT IV [id number] 07:58:49 [facility] 1970 Sex: FMR LUMBAR [...] ligament ossifications at the calcifications at T10- U41vdcgqoi moderate spinal canal stenosisPosterior disc osteophyte at the T11- T12 level causing mild spinal canalstenosisThe spinal cord is normal in caliber and signal intensity. There is no significant foraminal or spinal canal stenosis.2.1 x 2.3 cm left adrenal nodule, incompletely characterizedParaspinal soft tissues are unremarkable.Lumbar spine:Postoperative changes from posterior decompression at the L3 and Q6svfsjp. A 1.3 x 1.5 cm (AP by [...] Signed By: Maxim Sultana09/04/2023 08:00 CDTWorkstation Name: [id number] LUMBAR SPINE WITHOUT IV [id number] 07:58:49 [facility] : 1970 Sex: FMR LUMBAR [...] ligament ossifications at the calcifications at T10- N41vbdblhv moderate spinal canal stenosisPosterior disc osteophyte at the T11- T12 level causing mild spinal canalstenosisThe spinal cord is normal in caliber and signal intensity. There is no significant foraminal or spinal canal stenosis.2.1 x 2.3 cm left adrenal nodule, incompletely characterizedParaspinal soft tissues are unremarkable.Lumbar spine:Postoperative changes from posterior decompression at the L3 and N6zfasks. A 1.3 x 1.5 cm (AP by [...] Signed By: Maxim Sultana09/04/2023 08:00 CDTWorkstation Name: [id number] 07:46:14 * Test Item Value Reference Range Interpretation Comme nts FERRITIN (BEAKER) (test code = 361) 31.77 ng/mL 5.00-275.00 Publication Editor ID - hgIRON, TIBC, % SAT. (WITHOUT FERRITIN)2023-09-04 07:24:52* Test Item Value Reference Range Interpretation Comme nts IRON (BEAKER) (test code = 547) 22.0 ug/dL 40.0-160.0 L TOTAL IRON BINDING CAPACITY (BEAKER) (test code = 769) 369 ug/dL 250-450 IRON % SATURATION (2) (BEAKE R) (test code = 2590) 6 % 20-55 L Publication Editor ID - hgCT spine thoracic without IV [id number] 05:42:45EXAM: CT THORACIC SPINE WITHOUT IV CONTRAST, [...] Bones/alignment: Age- indeterminate nondisplaced fracture of the C0stwrdxbuz elements, predominantly involving the lamina and pinusprocess.. [...] Postoperative changes in themidline posterior lumbar soft tissues.[facility] HospitalCT spine lumbar without IV [id number] 05:42:45EXAM: CT THORACIC SPINE WITHOUT IV CONTRAST, [...] Bones/alignment: Age- indeterminate nondisplaced fracture of the I8lhhazroyt elements, predominantly involving the lamina and pinusprocess.. [...] Postoperative changes in themidline posterior lumbar soft tissues.[facility] HospitalCT spine thoracic without IV contrast 2023-09-04 [...] Bones/alignment: Age- indeterminate nondisplaced fracture of the G3quvpiafxq elements, predominantly involving the lamina and pinusprocess.. [...] Postoperative changes in themidline posterior lumbar soft tissues.[facility] HospitalCT spine lumbar without IV [id number] 05:42:45EXAM: CT THORACIC SPINE WITHOUT IV CONTRAST, [...] Bones/alignment: Age- indeterminate nondisplaced fracture of the I0rpibydgcb elements, predominantly involving the lamina and pinusprocess.. [...] Postoperative changes in themidline posterior lumbar soft tissues.[facility] HospitalCT LUMBAR SPINE WITHOUT IV [id number] 05:42:45[facility] : 1970 Sex: FEXAM: CT [...] spine:Bones/alignment: Age- indeterminate nondisplaced fracture of the K4phpwbaftb elements, predominantly i nvolving the lamina and [...] Signed By: Suzan Weaver09/04/2023 05:45 CDTWorkstation Name: [id number] THORACIC SPINE WITHOUT IV [id number] 05:42:45 [facility] : 1970 Sex: FEXAM: CT [...] spine:Bones/alignment: Age- indeterminate nondisplaced fracture of the Z9llxddfzbj elements, predominantly i nvolving the lamina and [...] Signed By: Suzan Weaver09/04/2023 05:45 CDTWorkstation Name: [id number] 2023-09-04 04:44:34* Test Item Value Reference Range Interpretation Comme nts FIBRINOGEN LEVEL (BEAKER) (t est code = 658) 410 mg/dl 225-434 Urinalysis without Vblhusoacyh9225-60-39 03:58:52* Test Item Value Reference Range Interpretation Comme nts Color, UA (test code = 5778-6) Light Yellow Clarity, UA (test code = 5767-9) Hazy Specific [place], UA (test code = 5811-5) 1.017 1.001-1.035 pH, UA (test code = 5803-2) 6.0 5.0-8.0 Protein, UA (test code = 57179-3) 10 mg/dL Negative A Glucose, UA (test code = 365) Negative Negative Ketones, UA (test code = 2514-8) Trace Negative A Bilirubin, UA (test code = 96636-3) Negative Negative Blood, UA (test code = 59790-4) Trace Negative A Nitrite, UA (test code = 5802-4) Negative Negative Leukocytes, UA (test code = 5799-2) Negative Negative Urobilinogen, UA (test code = 52071-6) 0.2 0.2-1.0 Specimen Source (test code = 2795) LYNDSAY (test code = LYNDSAY) Publication Editor ID - [auto]Publication Editor ID - tech Lab Interpretation (test code = 98395-1) Abnormal [facility] HospitalUrinalysis without Vgwvcfuctxa3756-49-60 03:58:52* Test Item Value Reference Range Interpretation Comme nts Color, UA (test code = 5778-6) Light Yellow Clarity, UA (test code = 5767-9) Hazy Specific [place], UA (test code = 5811-5) 1.017 1.001-1.035 pH, UA (test code = 5803-2) 6.0 5.0-8.0 Protein, UA (test code = 47650-3) 10 mg/dL Negative A Glucose, UA (test code = 365) Negative Negative Ketones, UA (test code = 2514-8) Trace Negative A Bilirubin, UA (test code = 05643-7) Negative Negative Blood, UA (test code = 10490-1) Trace Negative A Nitrite, UA (test code = 5802-4) Negative Negative Leukocytes, UA (test code = 5799-2) Negative Negative Urobilinogen, UA (test code = 09181-0) 0.2 0.2-1.0 Specimen Source (test code = 2795) LYNDSAY (test code = LYNDSAY) Publication Editor ID - [auto]Publication Editor ID - tech Lab Interpretation (test code = 97560-2) Abnormal [facility] HospitalURINALYSIS WITHOUT DPDAYSDLBYA6371-26-06 03:58:52* Test Item Value Reference Range Interpretation [...] 0.2 0.2-1.0 SOURCE(BEAKER) (test code = 2795) Publication Editor ID - [auto]Publication Editor ID - techCBC W/PLT COUNT & AUTO [...] 2801) 0.70 % 0.00-1.00 Rapid drug screen, [id number] 02:20:15* Test Item Value Reference Range Interpretation Comme nts Barbiturate Screen (test code = 33349-3) Negative Negative Benzodiazepine Screen (test code = 74498-6) Negative Negative Cocaine (Metab.) Screen (test code = 3397-7) Positive Negative A Methadone Screen (test code = 21555-0) Negative Negative Opiate Screen (test code = 17792-9) Negative Negative Cannabinoid Screen (test code = 43009-4) Positive Negative A Amph/Methamph Screen (test code = 87432-5) Negative Negative Phencyclidine Screen (test code = 21253-7) Negative Negative pH, UA (test code = 5803-2) 6.0 5.0-8.0 LYNDSAY (test code = LYNDSAY) DRUG CUTOFF CONC.Cocaine 300 ng/mL Cannabinoid 50 ng/mLBenzodiazepine 200 ng/mLBarbiturate 200 ng/mLPhencyclidine 25 ng/mLOpiate 300 ng/mLMethadone 300 ng/mLAmphetamine/ 1000 ng/mL Methamphetamine This assay provides an unconfirmed qualitative test result for the clinical management of patients in emergency situations. Chain of custody not maintained. Some hkbc-hyf-lzgodbx medications, as well as adulterants, may cause inaccurate results. Clinical correlation should be applied. A more comprehensive drug screen or confirmation of a detected drug may be performed upon request.Publication Editor ID - ADMIN Lab Interpretation (test code = 50420-8) Abnormal [facility] HospitalRapid drug screen, [id number] 02:20:15* Test Item Value Reference Range Interpretation Comme nts Barbiturate Screen (test code = 77844-7) Negative Negative Benzodiazepine Screen (test code = 73062-9) Negative Negative Cocaine (Metab.) Screen (test code = 3397-7) Positive Negative A Methadone Screen (test code = 69126-7) Negative Negative Opiate Screen (test code = 61073-2) Negative Negative Cannabinoid Screen (test code = 74274-7) Positive Negative A Amph/Methamph Screen (test code = 48624-4) Negative Negative Phencyclidine Screen (test code = 86510-5) Negative Negative pH, UA (test code = 5803-2) 6.0 5.0-8.0 LYNDSAY (test code = LYNDSAY) DRUG CUTOFF CONC.Cocaine 300 ng/mL Cannabinoid 50 ng/mLBenzodiazepine 200 ng/mLBarbiturate 200 ng/mLPhencyclidine 25 ng/mLOpiate 300 ng/mLMethadone 300 ng/mLAmphetamine/ 1000 ng/mL Methamphetamine This assay provides an unconfirmed qualitative test result for the clinical management of patients in emergency situations. Chain of custody not maintained. Some vcjk-bdt-dtiwfgk medications, as well as adulterants, may cause inaccurate results. Clinical correlation should be applied. A more comprehensive drug screen or confirmation of a detected drug may be performed upon request.Publication Editor ID - ADMIN Lab Interpretation (test code = 17391-5) Abnormal [facility] HospitalRAPID DRUG SCREEN, [id number] 02:20:15* Test Item Value Reference Range Interpretation [...] situations. Chain of custody not maintained. Some mljz-zdv-ogboidd medications, as well as adulterants, may cause inaccurate results. Clinical correlation should be applied. A more comprehensive drug screen or confirmation of a detected drug may be performed upon request.Publication Editor ID - ADMINB-TYPE NATRIURETIC FACTOR (BNP)2023-09-04 02:11:53* Test Item Value Reference Range Interpretation Comme nts B-TYPE NATRIURETIC PEPTIDE (BEAKER) (test code = 700) 1761 pg/mL 0-100 H Publication Editor ID - ADMINLACTIC ACID, [id number] 02:10:37* Test Item Value Reference Range Interpretation Comme nts LACTATE BLOOD VENOUS (2) (BEAKER) (test code = 2872) 1.04 mmol/L 0.50-2.00 Specimen slightl y hemolyzed Publication Editor ID - [id number] 02:04:37* Test Item Value Reference Range Interpretation Comme nts PHOSPHORUS (BEAKER) (test code = 604) 4.2 mg/dL 2.3-4.7 Specimen sligh tly hemolyzed Publication Editor ID - ADMINCOMPREHENSIVE METABOLIC [id number] 02:04:37* Test Item Value Reference Range Interpretation [...] GFR is not applicable for dialysis patients Publication Editor ID - [id number] 02:04:36* Test Item Value Reference Range Interpretation Comme nts MAGNESIUM (BEAKER) (test code = 627) 2.1 mg/dL 1.6-2.6 Specimen sligh tly hemolyzed Publication Editor ID - [id number]-[id number] 01:45:13* Test Item Value Reference Range Interpretation [...] code = 760) 28.5 seconds 22.5-36.0 PROTHROMBIN TIME/[id number] 01:42:15* Test Item Value Reference Range Interpretation Comme nts PROTIME (BEAKER) (test code = 759) 15.8 seconds 11.9-14.2 H INR (BEAKER) (test code = 370) 1.25 <=5.90 RECOMMENDED COUMADIN/WARFARIN INR THERAPY RANGESSTANDARD DOSE: 2.0 - 3.0 Includes: PROPHYLAXIS for venous thrombosis, systemic embolization; TREATMENT for venous thrombosis and/or pulmonary embolus.HIGH RISK: Target INR is 2.5-3.5 for patients with mechanical heart valves.JLA-[id number] 00:00:00Ordered by an unspecified provider.[facility] HospitalEKG-NJKKSNK6674-19-67 00:00:00Ordered by an unspecified provider.[facility] HospitalLactic Acid Whole Sphbx0221-37-73 20:51:22* Test Item Value Reference Range Interpretation Comme nts LACTIC ACID (test code = 5915372102) 1.56 mmol/L 0.50-2.20 Lab Interpretation (test cod e = 78331-0) Normal [facility] HospitalBLOOD [id number] 07:00:09* Test Item Value Reference Range Interpretation Comme nts CULTURE (BEAKER) (test code = 1095) No growth in 5 days T-SPOT(R).[id number] 18:35:00* Test Item Value Reference Range Interpretation Comme [facility] T-SPOT.TB (test code = 36216-4) Negative SeeBelow Normal Value: Ne gativeA negative [...] CORRECTED FOR NEG CONTROL (test code = 05769-3) 0 NEGATIVE CONTROL (test code = 19215-4) Passed POSITIVE CONTROL (test code = 25943-2) Passed LYNDSAY (test code = LYNDSAY) [id number] [facility] HospitalT-SPOT(R).[id number] 18:35:00* Test Item Value Reference Range Interpretation Comme nts T-SPOT.TB (test code = 8593068) Negative SeeBelow Normal Value: Ne gativeA negative [...] CORRECTED FOR NEG CONTROL (test code = 3215820) 1 PANEL B SPOT COUNT CORRECTED FOR NEG CONTROL (test code = 2732765) 0 NEGATIVE CONTROL (test code = 5287384) Passed POSITIVE CONTROL (test code = 1490312) Passed LYNDSAY (test code = LYNDSAY) [id number] [facility] HospitalT-SPOT(R).[id number] 18:35:00* Test Item Value Reference Range Interpretation Comme nts T-SPOT.TB (test code = 35647-5) Negative SeeBelow Normal Value: Ne gativeA negative [...] CORRECTED FOR NEG CONTROL (test code = 57102-1) 0 NEGATIVE CONTROL (test code = 08115-5) Passed POSITIVE CONTROL (test code = 99844-3) Passed LYNDSAY (test code = LYNDSAY) [id number] [facility] HospitalTransesophageal [id number] 13:41:18 Transesophageal Echocardiography Report (CHETAN) Demographics Patient Name YUE ROMERO Date of Study 06/16/2023 ESTELLE Gender Female Visit Number [id number] Race Room Number 1055 Number Date of 1970 Referring Physician Age 53 year(s) Associate Material Handler Interpreting Mauricio Bonilla Physician MDProcedure Type of [...] Tricuspid Valve Partially visualized. Pulmonic Valve Not visualized.[facility] HospitalTransesophageal echo 2023-06-16 13:41:18Transesophageal Echocardiography Report (CHETAN) Demographics Patient Name YUE ROMERO Date of Study 06/16/2023 ESTELLE Gender Female Visit Number [id number] Race Room Number 1055 Number Date of 1970 Referring Physician Age 53 year(s) Associate Material Handler Interpreting Physician Brian MDProcedure Type of Study [...] Tricuspid Valve Partially visualized. Pulmonic Valve Not visualized.[facility] HospitalTransesophageal echo 2023-06-16 13:41:18Transesophageal Echocardiography Report (CHETAN) Demographics Patient Name YUE ROMERO Date of Study 06/16/2023 ESTELLE Gender Female Visit Number [id number] Race Room Number 1055 Number Date of 1970 Referring Physician Age 53 year(s) Associate Material Handler Interpreting Physician Brian MDProcedure Type of Study [...] Tricuspid Valve Partially visualized. Pulmonic Valve Not visualized.[facility] HospitalMRSA [id number] 09:55:41* Test Item Value Reference Range Interpretation Comme nts Result (test code = 6463-4) No MRSA isolated [facility] HospitalMRSA [id number] 09:55:41* Test Item Value Reference Range Interpretation Comme nts Result (test code = 6463-4) No MRSA isolated [facility] HospitalMRSA [id number] 09:55:41* Test Item Value Reference Range Interpretation Comme nts CULTURE (BEAKER) (test code = 1095) No MRSA isolated CRYPTOCOCCAL [id number] 15:50:36* Test Item Value Reference Range Interpretation Comme nts CRYPTOCOCCAL ANTIGEN, SERUM (BEAKER) (test code = 1828) Negative Negative, Interference SPUTUM CULTURE + GRAM [id number] 10:30:11* Test Item Value Reference Range Interpretation [...] GRAM STAIN RESULT (BEAKER) (test code = 200326) 10-15 epithelial cells GRAM STAIN RESULT (BEAKER) (test code = 137146) 2+ gram positive cocci in chains and pairs GRAM STAIN RESULT (BEAKER) (test code = 183580) 1+ gram negative rods GRAM STAIN RESULT (BEAKER) (test code = 429405) 1+ yeast 2+ Normal respiratory rebel presentVANCOMYCIN LEVEL, [id number] 06:41:26* Test Item Value Reference Range Interpretation Comme nts VANCOMYCIN TROUGH (BEAKER) ( test code = 522) 17.0 ug/mL 10.0-20.0 Publication Editor ID - ADMINECHO W CONTRAST & [id number] 13:44:03Transthoracic Echocardiography Report (TTE) Demographics Patient Name YUE ROMERO Date of Study 06/14/2023 ESTELLE Gender Female Visit Number [id number] Race Room Number 1055 Number Date of 1970 Referring Aydee Go MD Physician Age 53 year(s) Associate Material Handler James Albarran [facility] Interpreting Physician Brian MDProcedure Type of Study [...] Velocity: 0.85 m/s Peak Gradient: 2.89 mmHgCHI Vencor HospitalECHO W CONTRAST & [id number] 13:44:03Transthoracic Echocardiography Report (TTE) Demographics Patient Name YUE ROMERO Date of Study 06/14/2023 ESTELLE Gender Female Visit Number [id number] Race Room Number 1055 Number Date of 1970 Referring Aydee Go MD Physician Age 53 year(s) Associate Material Handler James Albarran RDCS Interpreting Mauricio Bonilla, Physician MDProcedure Type of Study TTE procedure:2DECHO W DOPPLER(CW/PW/COLOR) (Routine)Indications:Suspected infective endocarditis with positive cultures or newmurmur.Clinical HistoryCOPDCVADiverticulitisHTNPADSeizureCardiac Cath ontras Medium: Definity. Amount - 2 mlHeight: 63 [...] Velocity: 0.85 m/s Peak Gradient: 2.89 mmHgCHI Vencor HospitalECH W CONTRAST & [id number] 13:44:03Transthoracic Echocardiography Report (TTE) Demographics Patient Name YUE ROMERO Date of Study 06/14/2023 ESTELLE Gender Female Visit Number [id number] Race Room Number 1055 Number Date of 1970 Referring Aydee Go MD Physician Age 53 year(s) Associate Material Handler James Albarran [facility] Interpreting Physician [...] Peak Velocity: 0.85 m/s Peak Gradient: 2.89 mmHgEmanate Health/Inter-community HospitalHEMOGLOBIN A1C 2023-06-14 09:26:42* Test Item Value [...] 5.7- 6.4% indicates increased risk for diabetes (prediabetes)."Publication Editor ID - ADMOperator ID - ADMECG 12 [id number] 09:06:12Ventricular Rate 97 BPMAtrial Rate 97 BPMP-R Interval 146 msQRS Duration 96 msQ-T Interval 378 msQTC Calculation(Bazett) 480 msP Lost[place] 68 degreesR [place] 107 degreesT [place] 18 degrees Suspect arm leadreversal, interpretation assumes no reversalNormal sinus rhythmRightward axisNonspecific T wave abnormalityAbnormal ECGWhen compared with ECG of 30-MAR-2023 13:06,QRS axis Shifted rightConfirmed by Luis Lopez ([id number]) on 06/14/2023 9:06:07 [facility] [id number] 09:06:12Ventricular Rate 97 BPMAtrial Rate 97 BPMP-R Interval 146 msQRS Duration 96 msQ-T Interval 378 msQTC Calculation(Bazett) 480 msP [place] 68 degreesR [place] 107 degreesT [place] 18 degrees Suspect arm leadreversal, interpretation assumes no reversalNormal sinus rhythmRightward axisNonspecific T wave abno rmalityAbnormal ECGWhen compared with ECG of 30-MAR-2023 13:06,QRS axis Shifted rightConfirmed by Luis Lopez ([id number]) on 06/14/2023 9:06:07 [facility] HospitalEC 12 [id number] 09:06:12Ventricular Rate 97 BPMAtrial Rate 97 BPMP-R Interval 146 msQRS Duration 96 msQ-T Interval 378 msQTC Calculation(Bazett) 480 msP [place] 68 degreesR [place] 107 degreesT [place] 18 degrees Suspect arm leadreversal, interpretation assumes no reversalNormal sinus rhythmRightward axisNonspecific T wave abnormalityAbnormal ECGWhen compared with ECG of 30-MAR-2023 13:06,QRS axis Shifted rightConfirmed by Luis Lopez ([id number]) on 06/14/2023 9:06:07 [facility] 12 [id number] 09:06:12Ventricular Rate 97 BPMAtrial Rate 97 BPMP-R Interval 146 msQRS Duration 96 msQ-T Interval 378 msQTC Calculation(Bazett) 480 msP [place] 68 degreesR [place] 107 degreesT [place] 18 degrees Suspect arm leadreversal, interpretation assumes no reversalNormal sinus rhythmRightward axisNonspecific T wave abno rmalityAbnormal ECGWhen compared with ECG of 30-MAR-2023 13:06,QRS axis Shifted rightConfirmed by Luis Lopez ([id number]) on 06/14/2023 9:06:07 [facility] HospitalBASI METABOLIC [id number] 04:48:18* Test Item Value Reference Range Interpretation [...] GFR is not applicable for dialysis patients Publication Editor ID - ADMINCBC (HEMOGRAM ONLY)2023-06-14 04:22:50* Test [...] 29.1 % 34.1-44.9 L MEAN CORPUSCULAR VOLUME (SAEG KER) (test code = 753) 91 fL [...] 413) 0 /100 WBC 0-0 Strep pneumoniae [id number] 23:34:41* Test Item Value Reference Range Interpretation Comme nts Strep pneumoniae Antigen (test code = 07606-3) Presumptive negative for pneumococcal pneumonia - see [...] the test. Lab Interpretation (test code = 31543-7) [facility] Centertrep [facility] [id number] 23:34:41* Test Item Value Reference Range Interpretation Comme nts Strep pneumoniae Antigen (test code = 04862-4) Presumptive negative for pneumococcal pneumonia - see [...] the test. Lab Interpretation (test code = 87650-4) Normal [facility] CenterTREP PNEUMONIAE [id number] 23:34:41* Test Item Value Reference Range Interpretation [...] detection limit of the test. Legionella antigen, [id number] 23:29:07* Test Item Value Reference Range Interpretation Comme [facility] [facility] Legionella Urine Antigen (test code = 93601-2) Negative - see comment Negative Negative for L. pneumophila serogroup 1 antigen, suggesting no recent or current infection with this serogroup. Legionellosis cannot be ruled out since other serogroups and species may cause disease. Lab Interpretation (test code = 49559-3) Normal [facility] HospitalLegionella antigen, [id number] 23:29:07* Test Item Value Reference Range Interpretation Comme nts Legionella Urine Antigen (test code = 73009-4) Negative - see comment Negative Negative for L. pneumophila serogroup 1 antigen, suggesting no recent or current infection with this serogroup. Legionellosis cannot be ruled out since other serogroups and species may cause disease. Lab Interpretation (test code = 16208-5) Normal [facility] HospitalLEGIONELLA ANTIGEN, [id number] 23:29:07* Test Item Value Reference Range Interpretation Comme nts L. PNEUMOPHILA SEROGP 1 UR AG (LATOYA) (test code = 1156) Negative - see comment Negative Negative for L. pneumophila serogroup 1 antigen, suggesting no recent or current infection with this serogroup. Legionellosis cannot be ruled out since other serogroups and species may cause disease. Venous doppler arm, [id number] 20:05:32PV LAB - Upper Extremities Veins Demographics Patient Name YUE ROMERO Date of Study 06/13/2023 ESTELLE Age 53 Visit Number [id number] Gender Female Accession Number [id number] Date ofBirth 1970 Referring Audrastalin Hamilton Dodiecarlottadebra Room Number 1055 Physician Associate Material Handler Lisa Ruiz Interpreting John Solorio, Physician FellowProcedureType [...] in cm/s ; Diameters [facility] in [facility] HospitalVenous doppler arm, [id number] 20:05:32PV LAB - Upper Extremities Veins Demographics Patient Name YUE ROMERO Date of Study 06/13/2023 ESTELLE Age 53 Visit Number [id number] Gender Female Accession Number [id number] Date of 1970 Referring Marianela Burgess Room Number 1055 Physician Associate Material Handler Lisa Ruiz Interpreting Physician CARO Oliver FellowProcedureType of Study: Veins: Upper Extremities Veins, [...] in cm/s ; Diameters are measured in [facility] HospitalVenous doppler arm, [id number] 20:05:32PV LAB - Upper Extremities Veins Demographics Patient Name YUE ROMERO Date of Study 06/13/2023 ESTELLE Age 53 Visit Number [id number] Gender Female Accession Number [id number] Date of 1970 Referring Marianela Burgess Room Number 1055 Physician Associate Material Handler Lisa Ruiz Interpreting John Solorio, Physician FellowProcedureType [...] in cm/s ; Diameters are measured in [facility] HospitalHIV-1 ANTIGEN WITH HIV-1/2 [id number] 18:36:40* Test Item Value Reference Range Interpretation Comme nts HIV-1 ANTIGEN WITH HIV 1\\T\\2 ANTIBODY (2) (LATOYA) (test code = 2586) Nonreactive Nonreactive MR lumbar spine without & with IV svspfqby6976-95-94 14:53:29MR LUMBAR SPINE WITH & WITHOUT IV [...] x 1.7x 1.7 cm. Dorsal paraspinal musculature T4esvubkyjgjtksp. Postcontrast imaging demonstrates mild peripheralenhancement of the dorsal paraspinal fluid collection. Left adrenalgland 2.9 cm nodule.[facility] HospitalMR lumbar spine without & with IV csryyitm2398-56-27 14:53:29MR LUMBAR SPINE WITH & WITHOUT IV [...] x 1.7x 1.7 cm. Dorsal paraspinal musculature A5rcetpmssstdjze. Postcontrast imaging demonstrates mild peripheralenhancement of the dorsal paraspinal fluid collection. Left adrenalgland 2.9 cm nodule.[facility] HospitalMR lumbar spine without & with IV zymyyjvh6682-78-49 14:53:29MR LUMBAR SPINE WITH & WITHOUT IV [...] x 1.7x 1.7 cm. Dorsal paraspinal musculature J9gsjcnxgdrupotd. Postcontrast imaging demonstrates mild peripheralenhancement of the dorsal paraspinal fluid collection. Left adrenalgland 2.9 cm nodule.[facility] HospitalMR LUMBAR SPINE WITH & WITHOUT IV [id number] 14:53:29[facility] 1970 Sex: FMR LUMBAR [...] 1.7 x 1.7 cm. Dorsal paraspinal musculature X6bokbnzykhcutps. Postcontrast imaging demonstrates mild peripheralenhancement of the [...] Signed By: Ryan Buckley06/13/2023 14:55 CDTWorkstation Name: [id number] KINASE (CK)2023-06-13 11:54:02* Test Item Value Reference Range Interpretation Comme nts CREATINE KINASE TOTAL (BEAKE R) (test code = 380) 43 U/L 29-200 Publication Editor ID - ADMINCOMPREHENSIVE METABOLIC [id number] 06:48:22* Test Item Value Reference Range Interpretation [...] GFR is not applicable for dialysis patients Publication Editor ID - ADMINPROTHROMBIN TIME/[id number] 06:40:01* Test Item Value Reference Range Interpretation [...] code = 2801) 1.70 % 0.00-1.00 H [id number] 05:26:09* Test Item Value Reference Range Interpretation Comme nts MAGNESIUM (BEAKER) (test cod e = 627) 2.0 mg/dL 1.6-2.6 Publication Editor ID - [id number] 05:26:09* Test Item Value Reference Range Interpretation Comme nts PHOSPHORUS (BEAKER) (test co de = 604) 3.5 mg/dL 2.3-4.7 Publication Editor ID - ADMINBASIC METABOLIC [id number] 05:26:08* Test Item Value Reference Range Interpretation [...] GFR is not applicable for dialysis patients Publication Editor ID - ADMINCBC W/PLT COUNT & AUTO [id number] 05:11:15* Test Item Value Reference Range Interpretation [...] 0.70 % 0.00-1.00 XR spine lumbar 1 [id number] 10:32:20XR SPINE LUMBAR 1 VIEW CLINICAL INDICATION: L3-4 L[facility]INECTOMY [facility] [id number] 10:32:20XR SPINE LUMBAR 1 VIEW CLINICAL INDICATION: L3-4 LAMINECTOMY [facility] 1 view 2023-06-01 10:32:20XR SPINE LUMBAR 1 VIEW CLINICAL INDICATION: L3-4 LAMINECTOMY COMPARISON: NoneE[facility] HospitalXR SPINE LUMBAR 1 [id number] 10:32:20[facility] : 1970 Sex: FXR SPINE LUMBAR 1 VIEWCLINICAL INDICATION: L3-4 LAMINECTOMYCOMPARISON: NoneIMPRESSION:A single lateral view of the lumbar spine is obtained intraoperatively.The posterior approach surgical instrument is seen at the L3-L4 level,inferior to the L3 spinous process. Results were communicated to , who concurred with the above findings. Electronically Signed By: Maxim Jean Baptisteip108/01/2022 10:34 CDTWo rkstation Name: [id number] SPINE LUMBAR 1 [id number] 10:29:18 [facility] : 1970 Sex: FCLINICAL HISTORY: [...] Signed By: Maxim Ramos08/01/2022 10:31 CDTWorkstation Name: [id number] Screen, gjqpf9359-37-34 05:32:52* Test Item Value Reference Range Interpretation Comme nts Preg Test, Ur (test code = 2-1) Negative Negative Lab Interpretation (test cod e = 47457-6) Normal [facility] HospitalPregnancy Screen, tshyg5482-31-09 05:32:52* Test Item Value Reference Range Interpretation Comme nts Preg Test, Ur (test code = 2-1) Negative Negative Lab Interpretation (test cod e = 17809-3) Normal [facility] HospitalPREGNANCY SCREEN, [id number] 05:32:52* Test Item Value Reference Range Interpretation Comme nts TEST URINE (BEAKER ) (test code = 583) Negative Negative BASIC METABOLIC [id number] 23:30:54* Test Item Value Reference Range Interpretation [...] GFR is not applicable for dialysis patients Publication Editor ID - ADMINPT/[id number] 23:15:33* Test Item Value Reference Range Interpretation [...] H CT neck soft tissue without IV ogzwikhi4432-46-61 13:45:22EXAM: CT NECK SOFT TISSUE WITHOUT IV [...] Postoperative changes from anterior cervical discectomy fusionat C3-O8Beypzreq Lung Apices: NormalCH[facility]encor HospitalCT neck soft tissue without IV oemknsub9367-70-96 13:45:22EXAM: CT NECK SOFT TISSUE WITHOUT IV [...] Postoperative changes from anterior cervical discectomy fusionat C3-F9Yivvqrzq Lung Apices: NormalCH[facility]enc[facility] HospitalCT neck soft tissue without IV wkuwjhrd5798-13-56 13:45:22EXAM: CT NECK SOFT TISSUE WITHOUT IV [...] Postoperative changes from anterior cervical discectomy fusionat C3-K8Ijqjvfra Lung Apices: NormalCH[facility]enc[facility] HospitalCT NECK SOFT TISSUE WITHOUT IV [id number] 13:45:22 [facility]UE HEATHERGRACIELA MCCABE : 1970 Sex: FEXAM: CT NECK [...] Postoperative changes from anterior cervical discectomy fusionat C3-Z0Wdznjodl Lung Apices: NormalIMPRESSION:Exam limited by lack of intravenous contrast.1. 1.8 x 2.9 x 1.3 cm ill-defined fluid collection in the leftanterolateral neck soft tissues, suggesting evolving postoperativehemorrhage. Superimposed infection is not ex cluded.2. Retropharyngeal fluid and air measuring up to 0.8 cm in thickness,favored to be present postoperative right frontal edema. Superimposedinfection is not excluded.3. Postoperative changes from ACDF at C3- I5Dpfyraygvdypsc Signed By: Maxim Jean Baptisteip107/31/2022 13:47 CDTWorkstation Name: [id number] METABOLIC [id number] 08:13:13* Test Item Value Reference Range Interpretation [...] GFR is not applicable for dialysis patients Publication Editor ID - BVCBC W/PLT COUNT & AUTO [id number] 07:46:31* Test Item Value Reference Range Interpretation [...] 0.00-1.00 XR spine cervical 2 or 3 [id number] 20:24:23TECHNIQUE: Frontal and lateral views of the cervical spine. INDICATION: Postop Standing Films. COMPARISON: None.[facility] HospitalXR spine cervical 2 or 3 [id number] 20:24:23TECHNIQUE: Frontal and lateral views of the cervical spine. INDICATION: Postop Standing Films. COMPARISON: None.[facility] HospitalXR spine cervical 2 or 3 [id number] 20:24:23TECHNIQUE: Frontal and lateral views of the cervical spine. INDICATION: Postop Standing Films. COMPARISON: None.[facility] HospitalXR SPINE CERVICAL 2 OR 3 [id number] 20:24:23 [facility] : 1970 Sex: FTECHNIQUE: Frontal [...] Signed By: Zachariah Garcia05/28/2023 20:26 CDTWorkstation Name: [id number] fluoro non-specific up to 1 hour 2023-05-28 11:45:16This is a non-reportable study with no Radiologist dictation. Please refer to your PACS to review images, or Doc Flowsheets for documentation on studies without images.[facility] HospitalFL fluoro non-specific up to 1 [id number] 11:45:16This is a non-reportable study with no Radiologist dictation. Please refer to your PACS to review images, or Doc Flowsheets for documentation on studies without images.[facility] HospitalFL fluoro non-specific up to 1 [id number] 11:45:16This is a non-reportable study with no Radiologist dictation. Please refer to your PACS to review images, or Doc Flowsheets for documentation on studies without images.[facility] HospitalFL FLUORO NON-SPECIFIC UP TO 1 [id number] 11:45:16 [facility] : 1970 Sex: FThis is a non- reportable study with no Radiologist dictation. Please refer to your PACS to review images, or Doc Flowsheets for documentation on studies without images.FL FLUORO NON-SPECIFIC UP TO 1 [id number] 10:13:02 [facility] : 1970 Sex: FTECHNIQUE: 1 lateral fluoroscopic image of the cervical spine forlocalization.Fluoroscopic time: 3second(s).FINDINGS:The surgical pointer is at C3-C4.The findings were discussed with Dr. Garcia in theOR who concurred withthe findings.IMPRESSION:Intraoperative localization plain film as described abo ta.Electronically Signed By: Derik Reyez05/28/2023 10:15 CDTWorkstation Name: [id number], QUANTITATIVE, [id number] 08:21:03* Test Item Value Reference Range Interpretation Comme nts GONADOTROPIN, CHORIONIC (HCG ) QUANT (BEAKER) (test code = 649) < mIU/mL 0-10 Non- Females: <10 mIU/mL Females: Gestation Age Reference Range(mIU/mL) 0.2-1 Week 5-50 1-2 Weeks 50-500 2-3 Weeks 100-5,000 3-4 Weeks 500-10,000 4-5 Weeks 1,000-50,000 5-6 Weeks 10,000-100,000 6-8 Weeks 15,000- 200,000 2-3 Months 10,000-100,000 Publication Editor ID - ADMINCULTURE, [id number] 09:28:30SPECIMEN NUMBER: [id number] CULTURE, URINE SPECIMEN NUMBER: [id number] SPECIMEN COMMENT: URINE SOURCE: URINE REPORT STATUS: FINAL FINAL REPORT: 05/15/2023 >100,000 CFU/ML UROGENITAL REBEL PRESENT NOCOMMON PATHOGENS UNLESS OTHERWISE INDICATED, ALL TESTING PERFORMED AT [facility] [address] [place] [address] MIMEOGRAPH OPERATOR: JANNY STEINER M.D. CLIA NUMBER [id number] [place]. [id number], [id number] 12:02:50SPECIMEN NUMBER: [id number] CULTURE, URINE SPECIMEN NUMBER: [id number] SOURCE: URINE REPORT STATUS: FINAL FINAL REPORT: 05/13/2023 NO SPECIMEN RECEIVED FOR TESTING. CHARGES DELETED.BASIC METABOLIC [id number] 04:48:43* Test Item Value Reference Range Interpretation Comme nts GLUCOSE (test code = 2217) 117 MG/DL 70-99 H BUN (test code = 2208) 20 MG/DL 6-20 CREATININE (test code = 2214) 0.83 MG/DL 0.60-1.30 eGFR (2020 CKD-EPI) (test co de = 16502) 85 ML/MIN/1.73 >60 SODIUM (test code = [...] 12.7 SECONDS 12.5-14.7 INR (test code = 35185) 0.9 SEE BELOW CURRENT RECOMMENDATIONS ARE FOR AN INR OF 2.0-3.0 FOR ALL PATIENTS ON VITAMIN K ANTAGONISTS, EXCEPT THOSE WITH PROSTHETIC HEART VALVES, FOR WHOM INR OF 2.5-3.5 IS RECOMMENDED. UNLESS OTHERWISE INDICATED, ALL TESTING PERFORMED AT [facility] [address] [place] [address] MIMEOGRAPH OPERATOR: JANNY STEINER M.D. CLIA NUMBER [id number] [facility] [place]. [id number] CBC W/AUTO DIFF WITH [id number] 01:54:17* Test Item Value Reference Range Interpretation [...] = 1065) 0.0 /100 WBC'S See_Comment [Automated Adapta ge] The system which generated this result [...] H ABS NUCLEATED RBCS (test code = 45500) 0.00 K/UL 0.00-0.11 ECG 12 [id number] 14:02:48Ventricular Rate 102 BPMAtrial Rate 102 BPMP-R Interval 146 msQRS Duration 90 msQ-T Interval 372 msQTC Calculation(Bazett) 484 msP Lostant 11 degreesR Lostant -53 degreesT Lostant 29 degrees Sinus tachycardiaPossible Left atrial enlargementLeft axis deviationPoor R wave progression Cannot rule out Anterior infarct , age undetermined vs lead misplacementNonspecific T wave abnormalityProlonged QTAbnormal ECGNo previous ECGs availableConfirmed by David GARCIA BASANT ([id number]) on 04/06/2023 2:02:46 [facility] & [id number] 13:11:39Transthoracic Echocardiography Report (TTE) Demographics Patient Name YUE ROMERO Date of Study 03/31/2023 ESTELLE Gender Female Visit Number [id number] Race Room Number 2227 Number Date of 1970 Referring Physician Mariah Aldridge MD Age 53year(s) Associate Material Handler Wilmer Francois Dough Molder Hand Josefina Corbett RDCS Interpreting John Solorio Physician MDProcedure Type of [...] vol index) is moderately enlarged (female - LVE D vol -71-80ml/m2). No evidence of LV hypertrophy. [...] Velocity: 0.74 m/s Peak Gradient: 2.22 mmHgCHI Vencor HospitalECHO W CONTRAST & [id number] 13:11:39Transthoracic Echocardiography Report (TTE) Demographics Patient Name YUE ROMERO Date of Study 03/31/2023 ESTELLE Gender Female Visit Number [id number] Race Room Number 2227 Number Date of 1970 Referring Physician Mariah Aldridge MD Age 53 year(s) Associate Material Handler Wilmer Francois Dough Molder Hand Josefina Corbett [facility] Interpreting Physician Melody MDProcedure Type of [...] Right Atrium RA size is normal. Aortic ValveMild AoV cusp thickening. Mild to moderate aortic [...] not well visualized; function appears normal by D oppler visualized. Aorta Aortic root size (Sinus of [...] cmAorta Ao Root S of Rosangela.: 3.08 cmDoppler/Quant itative Measurements Mitral Valve MV Peak E-Wave: 1.24 m/s MV Peak A-Wave: 0.94 m/s E/A Ratio: 1.32Peak Gradient: 6.11 mmHg Deceleration Time: 162.8 msec MV Evette. Peak: Tissue Doppler E' Septal Velocity: 0.06 m/s E/E': 19.74 E' Lateral Velocity: 0.06 m/s Aortic Valve Peak Velocity: 1.43 m/s Mean Velocity: 1.03 m/s Peak Gradient: 8.22 mmHg Mean Gradient: 4.7 mmHg AV Area (continuity): 2.95 cm^2 AVVTI: 25.77 cm AR P1/2t: 343.7 msec Deceleration [...] Peak Velocity: 0.74 m/s Peak Gradient: 2.22 mmHgEmanate Health/Inter-community HospitalXR chest 1 view portable / [id number] 15:39:07TECHNIQUE: Frontal view of the chest. INDICATION: CHf. COMPARISON: None. FINDINGS: LINES/TUBES: None. HEART AND MEDIASTINUM: Cardiomediastinal contour is within normallimits. LUNGS: The lungs are well inflated and clear. No consolidation orpulmonary edema. PLEURA: No pneumothorax. No significant pleural effusion. SOFT TISSUES AND BONES: Cervical spinal fixation hardware is noted.[facility] HospitalXR chest 1 view portable / [id number] 15:39:07TECHNIQUE: Frontal view of the chest. INDICATION: CHf. COMPARISON: None. FINDINGS: LINES/TUBES: None. HEART AND MEDIASTINUM: Cardiomediastinal contour is within normallimits. LUNGS: The lungs are well inflated and clear. No consolidation orpulmonary edema. PLEURA: No pneumothorax. No significant pleural effusion. SOFT TISSUES AND BONES: Cervical spinal fixation hardware is noted.[facility] 1 [facility]IEW PORTABLE / [id number] 15:39:07 [facility] 1970 Sex: FTECHNIQUE: Frontal view of the chest.INDICATION: CHf.COMPARISON: None.FINDINGS:LINES/TUBES: None.HE ART AND MEDIASTINUM: Cardiomediastinal contour is within normallimits. LUNGS: The lungs are well inflated and clear. No consolidation orpulmonary edema.PLEURA: No pneumothorax. No significant pleuraleffusion.SOFT TISSUES AND BONES: Cervical spinal fixation hardware is noted.IMPRESSION:No acute card iopulmonary process.Electronically Signed By: Jose Carlos Lebron04/01/2023 15:41 CDTWorkstation Name: [id number] NATRIURETIC FACTOR (BNP)2023-04-01 14:15:07* Test Item Value Reference Range Interpretation Comme nts B-TYPE NATRIURETIC PEPTIDE ( BEAKER) (test code = 700) 192 pg/mL 0-100 H Publication Editor ID - ADMINMR spine cervical without IV [id number] 11:30:35MRI cervical spine without contrast CLINICAL HISTORY: [...] and paraspinal soft tissues are within normal limits.[facility] HospitalMR CERVICAL SPINE WITHOUT IV [id number] 11:30:35 [facility] : 1970 Sex: FMRI cervical [...] Signed By: Maxim Sultana03/31/2023 11:32 CDTWorkstation Name: [id number] METABOLIC [id number] 04:43:14* Test Item Value Reference Range Interpretation [...] GFR is not applicable for dialysis patients Publication Editor GEOVANNA - MADELINE WCBC (HEMOGRAM ONLY)2023-03-31 04:20:07* Test [...] 0 /100 WBC 0-0 Arterial doppler legs [id number] 17:44:07PV LAB - Lower Extremity Arterial Duplex Demographics Patient Name YUE ROMERO Date of Study ESTELLE Age 53 Visit Number [id number] Gender Female Accession Number [id number] Date of 1970 Referring Mariah Aldridge, Room Number 2227 Physician Associate Material Handler Yovana Akins Interpreting John Solorio, Physician FellowProcedureType [...] + + + + + + !Prox WORKDAY MANAGER ! !32 ! !Biphasic ! !60.9 ! !Triphasic ! + + + + + + + + + + !Mid WORKDAY MANAGER ! !25.9 ! !Biphasic ! !59.7 ! !Triphasic ! + + + + + + + + + + !Dist WORKDAY MANAGER ! !33.2 ! !Biphasic ! !37.4 [...] ! !Triphasic ! !60.5 ! !Triphasic ! +------ + + + + + + + + + !Mid Peroneal ! !27.9 ! !Biphasic ! !39.8 ! !Triphasic ! + + + + + + + + + + !Dist Peroneal ! !31.6 ! !Biphasic ! !23.6 ! !Biphasic ! +- + + + + + + + + +[facility] HospitalArterial doppler legs [id number] 17:44:07PV LAB - Lower Extremity Arterial Duplex Demographics Patient Name YUE ROMERO Date of Study 03/30/2023 ESTELLE Age 53 Visit Number [id number] Gender Female Accession Number [id number] Date of 1970 Referring Mariah Aldridge, Room Number 2227 Physician Associate Material Handler Yovana Akins Interpreting John Solorio, Physician FellowProcedureType of Study: ExtremitiesArteries: Lower Extremities Arterial Duplex, ARTERIAL DOPPLER LEGS, BILATERAL.Indications for Study:PVD.Patient Status:Routine.Study Location:Vascular Lab.Technical Quality:Adequate visualization.Risk FactorsHistory of Disease+ + + --+!Diagnosis !Date !Comments !+ + + ------+!History/Risk Factors: !03/30/2023!CHF, CVA, HTN. !+ +-- --------+ +ImpressionsRight Impression1. The common femoral, profunda femoral, [...] had a dusky appearance and felt cool tothe touch. Signature Velocities are measured in cm/s ; Diameters are measured in cmLE Duplex Measurements Right Left + + + + + + + + + + !Location ! !PSV !EDV !Waveform ! !PSV !EDV !Waveform ! +----- + + + + + [...] ! !Triphasic ! !144 ! !Triphasic ! +--- + + + [...] + + + + + + !Prox WORKDAY MANAGER ! !32 ! !Biphasic ! !60.9 ! !Triphasic ! + + + + + + + + + + !Mid WORKDAY MANAGER ! !25.9 ! !Biphasic ! !59.7 ! !Triphasic ! + + + + + + + + + + !Dist WORKDAY MANAGER ! !33.2 ! !Biphasic ! !37.4 [...] + + + + !Dist KENDRA ! ! 37.4 ! !Biphasic ! !58.1 ! !Biphasic ! + + + + + + + + + + !Prox Peroneal ! !32.4 ! !Triphasic ! !60.5 ! !Triphasic ! +------ + + + + + + + + + !Mid Peroneal ! !27.9 ! !Biphasic ! !39.8 ! !Triphasic ! + + + + + + + + + + !Dist Peroneal ! !31.6 ! !Biphasic ! !23.6 ! !Biphasic ! + + + + + + + + + +[facility] HospitalABI's Only(Ankle/Brachial Index)2023-03-30 17:13:47PV LAB - Lower Extremity Arterial Procedure Demographics Patient Name YUE ROMERO Date of Study 03/30/2023 ESTELLE Age 53 Visit Number [id number] Gender Female Accession Number [id number] Date of 1970 Referring Mariah Aldridge, Room Number 2227 Physician Associate Material Handler Yovana Akins Interpreting John Solorio, Physician FellowProcedureType of Study: Extremities Arteries: Lower Extremity Arterial Procedure, ARTERIAL (ALEISHA'S W/DOPPLER) ONLY.Indications for Study:PVD.Patient Status:Routine.Study Location:Vascular Lab.Technical Quality:Adequate visualization.Risk FactorsHistory of Disease+ + + -----+!Diagnosis !Date !Comments !+ + + ---------+!History/Risk Factors: [...] the DP pressure is 121mmHg with an LAEISHA of .90, within the mild obstruction range.3. [...] in cm/s ; Di[facility] are [facility] in [facility]AB[facility] Only(Ankle/Brachial Index)2023-03-30 17:13:47PV LAB - Lower Extremity Arterial Procedure Demographics Patient Name YUE ROMERO Date of Study 03/30/2023 ESTELLE Age 53 Visit Number [id number] Gender Female Accession Number [id number] Date of 1970 Referring Mariah Aldridge, Room Number 2227 Physician Associate Material Handler Yovana Akins Interpreting John Solorio, Physician FellowProcedureType of Study: Extremities Arteries: Lower Extremity Arterial Procedure, ARTERIAL (ALEISHA'S W/DOPPLER) ONLY.Indications for Study:PVD.Patient Status:Routine.Study Location:Vascular Lab.Technical Quality:Adequate visualization.Risk FactorsHistory of Disease+ + + -----+!Diagnosis !Date !Comments !+ + + ---------+!History/Risk Factors: [...] in cm/s ; Diameters are measured in [facility] thoracic spine without IV wuorckqg8517-00-46 12:50:50MR THORACIC SPINE WITHOUT IV CONTRAST INDICATION: [...] abnormality. T10-11 moderate right neural foraminal stenosis gjqK56-08 moderate bilateral foraminal stenosis due to facet hypertrophyand ligamentum flavum redundancy. Thoracic vertebrae maintain normal height. Mild multilevel degenerativedisc changes. No evidence of acute osseous fracture or traumaticmalalignment. No paraspinal mass. Conus medullaris terminates at L1. Redundant cauda equina partiallyimaged and further reported on MRI lumbar spine.[facility] HospitalMR THORACIC SPINE WITHOUT IV [id number] 12:50:50 [facility] : 1970 Sex: FMR THORACIC [...] abnormality. T10-11 moderate right neural foraminal stenosis sukZ61-58 moderate bilateral foraminal stenosis due to facet [...] Signed By: Ryan Buckley03/30/2023 12:52 CDTWorkstation Name: [id number] spine lumbar without IV ymaztrvj3270-90-97 12:33:57MR LUMBAR SPINE WITHOUT IV CONTRAST INDICATION: Unlisted Reason for ExamConcern for cord compression COMPARISON: None TECHNIQUE: Multiplanar, multisequence MR images of the lumbar spinewithout contrast. FINDINGS: For the purposes of this dictation, the 5 lowermost fckeol-ivtcrojrhseek-jguy vertebral bodies are labeled L1-L5.Alignment of the [...] with mild to moderatebilateral neural foraminal stenosisCHI Vencor HospitalMR LUMBAR SPINE WITHOUT IV [id number] 12:33:57 [facility] : 1970 Sex: FMR LUMBAR SPINE WITHOUT IV CONTRASTINDICATION: Unlisted Reason for ExamConcern for cord compressionCOMPARISON: NoneTECHNIQUE: Multiplanar, multisequence MR images of the lumbar spinewithout contrast. FINDINGS: For the purposes of this dictation, the 5 lowermost aieafm-promaljhuoray-xtma vertebralbodies are labeled L1- L5.Alignment of the [...] flavum buckling versus synovial cyst at the trheeX45-Y42 level (series 301 image eight). MRI thoracic spine can beconsidered for further evaluation.7. Mild clumping of the cauda equina nerve roots, which is nonspecificbut may represent arachnoiditis. Postcontrast imaging can be consideredfor further evaluation.Electronically Signed By: Maxim Sultana03/30/2023 12:36 CDTWorkstation Name: [id number] 11:45:01* Test Item Value Reference Range Interpretation [...] 5.7- 6.4% indicates increased risk for diabetes (prediabetes)."Publication Editor ID - ADMEEG AWAKE AND [id number] 09:57:53Steph Martinez MD 03/30/2023 9:[address] Type: Inpatient, outpatient, EMUDATE(s) OF EE03/30/23DATE OF REPORT: 03/30/23MRN: [id number] of : 1970EE-1454Start time: 08:36Stop time: 09:23ICD-10: R56.9 CPT Code: 89990 (awake and asleep)HISTORY: 53 y/o female with [...] EEG recordings. Steph Elias MD, MPHNeurophysiology/Epilepsy AttendingCHI Venc[facility] Hospital EEG AWAKE AND [id number] 09:57:53Gadarcy Martinez MD 03/30/2023 9:59 AMELECTROENCEPHALOGRAM FOR [facility] EEG Type: Inpatient, outpatient, EMUDATE(s) OF EE03/30/23DATE OF REPORT: 03/30/23MRN: [id number] of : 1970EE-1454Start time: 08:36Stop time: 09:23ICD-10: R56.9 CPT Code: 03441 (awake and asleep)HISTORY: 53 y/o female with [...] EEG recordings. Steph Elias MD, MPHNeurophysiology/Epilepsy AttendingCHI [facility] Hospital EEG AWAKE AND [id number] 09:57:53Steph Martinez MD 03/30/2023 9:59 AMELECTROENCEPHALOGRAM FOR [facility] EEG Type: Inpatient, outpatient, EMUDATE(s) OF EE03/30/23DATE OF REPORT: 03/30/23MRN: [id number] of : 1970EE-1454Start time: 08:36Stop time: 09:23ICD-10: R56.9 CPT Code: 06718 (awake and asleep) HISTORY: 53 y/o female [...] MEDICATIONS THAT COULD AFFECT EEG: Depakote, Lorazepam T ECHNICAL SUMMARY:This is a digital EEG recorded with [...] EEG recordings. Steph Elias MD, MPHNeurophysiology/Epilepsy AttendingCHI [facility] Hospital EEG AWAKE AND [id number] 09:57:53Steph Martinez MD 03/30/2023 9:59 AMELECTROENCEPHALOGRAM FOR [facility] EEG Type: Inpatient, outpatient, EMUDATE(s) OF EE03/30/23DATE OF REPORT: 03/30/23MRN: [id number] of : 1970EE-1454Start time: 08:36Stop time: 09:23ICD-10: R56.9 CPT Code: 93537 (awake and asleep)HISTORY: 53 y/o female with [...] EEG recordings. Steph Elias MD, MPHNeurophysiology/Epilepsy AttendingCHI Venc[facility] Hospital VALPROIC ACID LEVEL, [id number] 09:42:31* Test Item Value Reference Range Interpretation Comme nts VALPROIC ACID TOTAL (BEAKER) (test code = 924) 76 ug/mL 50-100 Therapeutic range for some clinical conditions may be >100 ug/mLUrinalysis w/Microscopic + Reflex to [id number] 08:43:51* Test Item Value Reference Range Interpretation Comme nts Color, UA (test code = 5778-6) Yellow Clarity, UA (test code = 5767-9) Clear Specific [place], UA (test code = 5811-5) 1.033 1.001-1.035 pH, UA (test code = 5803-2) 6.0 5.0-8.0 Protein, UA (test code = 18690-8) 30 mg/dL Negative A Glucose, UA (test code = 365) Negative Negative Ketones, UA (test code = 2514-8) Negative Negative Bilirubin, UA (test code = 43655-7) Negative Negative Blood, UA (test code = 48983-9) Small Negative A Nitrite, UA (test code = 5802-4) Negative Negative Leukocytes, UA (test code = 5799-2) Negative Negative Urobilinogen, UA (test code = 82737-4) 0.2 0.2-1.0 RBC, UA (test code = 91719-6) 51 See_Comment [Automated message] The system which [...] Occasional Squam Epithel, UA (test code = 01767-8) See_Comment [Automated message] The system which generated this result transmitted reference range: /HPF. The reference range was not used to interpret this result as normal/abnormal. Specimen Source (test code = 2795) LYNDSAY (test code = LYNDSAY) Publication Editor ID - [auto]Publication Editor ID - tech Lab Interpretation (test code = 04012-4) Abnormal [facility] HospitalURINALYSIS W/ REFLEX URINE [id number] 08:43:51 * Test Item Value Reference Range [...] < /HPF SOURCE(BEAKER) (test code = 2795) Publication Editor ID - [auto]Publication Editor ID - techCOMPREHENSIVE METABOLIC [id number] 04:37:29* Test Item Value Reference Range Interpretation [...] GFR is not applicable for dialysis patients Publication Editor ID - MATT BPT/[id number] 04:30:17* Test Item Value Reference Range Interpretation Comme nts PROTIME (BEAKER) (test code = 759) 13.8 seconds 11.9-14.2 INR (BEAKER) (test code = 370) 1.13 See_Comment [Automated Adapta ge] The system which generated this result [...] code = 413) 0 /100 WBC 0-0 OKG-[id number] 00:00:00Ordered by an unspecified provider.[facility]EKG-[id number] 00:00:00Ordered by an unspecified provider. [facility] HospitalEKG-[id number] 00:00:00Ordered by an unspecified provider.[facility] HospitalMAGNESIUM2023-05-25 17:14:06* Test Item Value Reference Range Interpretation Comme nts MAGNESIUM (test code = 5377205902) 1.9 mg/dL 1.7-2.4 Lab Interpretation (test cod e = 53853-8) Normal [facility] HospitalCOMP. METABOLIC PANEL (34970)2022-12-11 15:16:25* Test Item Value Reference Range Interpretation Comme nts NA (test code = 5121291195) 139 mmol/L 135-145 K (test code = 7589548723) 3.5 mmol/L 3.5-5.0 CL (test code = 1783698809) 107 mmol/L 98-108 CO2 TOTAL (test code = 9381868553) 24 mmol/L 23-31 AGAP (test code = 5742243650) 8 2-16 BUN (test code = 5115331247) 9 mg/dL 7-23 GLUCOSE (test code = 4399993377) 129 mg/dL 70-110 H CREATININE (test code = 3731256978) 0.68 mg/dL 0.50-1.04 TOTAL BILI (test code = 7325426139) 0.5 mg/dL 0.1-1.1 CALCIUM (test code = 4303787458) 8.9 mg/dL 8.6-10.6 T PROTEIN (test code = 2687443289) 6.3 g/dL 6.3-8.2 ALBUMIN (test code = 1161136207) 3.8 g/dL 3.5-5.0 ALK PHOS (test code = 6575086425) 87 U/L 34-122 ALTv (test code = 1742-6) 24 U/L 5-35 AST(SGOT) (test code = 0786952668) 21 U/L 13-40 eGFR (test code = 4417507289) 91.6 mL/min/1.73m2 LYNDSAY (test code = LYNDSAY) [...] imaging tests). Lab Interpretation (test code = 10271-5) Abnormal [facility] [id number] 15:10:45* Test Item Value Reference Range Interpretation Comme nts TROPONIN I (test code = 0283726563) 0.015 ng/mL <=0.034 LYNDSAY (test code = [...] of biotin. Lab Interpretation (test code = 69698-4) Normal [facility] HospitalN-TERMINAL ZUI-[id number] 15:07:48* Test Item Value Reference Range Interpretation Comme nts NT-proBNP (test code = 1965391347) 1460 pg/mL <=125 H LYNDSAY (test code = LYNDSAY) Biotin has been reported to cause a negative bias, interpret results relative to patient's use of biotin. Lab Interpretation (test code = 47180-3) Abnormal [facility] HospitalD-[id number] 14:45:24* Test Item Value Reference Range Interpretation Comments D-DIMER (test code = 5818324692) 0.99 See_Comment H [Automated message] The system [...] a diagnosis. Lab Interpretation (test code = 52210-1) Abnormal [facility] acute hospital WITH [id number] 14:14:48* Test Item Value Reference Range Interpretation Comme nts WBC (test code = 6690-2) 7.86 See_Comment [Automated Adapta ge] The system which generated this result transmitted reference range: 4.30 - 11.10 10*3/?L. The reference range was not used to interpret this result as normal/abnormal. RBC (test code = 789-8) 5.13 See_Comment [Automated Adapta ge] The system which generated this result [...] g/dL 31.6-35.1 L RDW-SD (test code = 26364-6) 47.8 fL 39.0-49.9 RDW-CV (test code = 788-0) 16.9 % 12.0-15.5 H PLT (test code = 777-3) 507 See_Comment H [Automated Adapta ge] The system which generated this result transmitted reference range: 166 - 358 10*3/?L. The reference range was not used to interpret this result as normal/abnormal. MPV (test code = 07602-0) 8.2 fL 9.5-12.9 L NRBC/100 WBC (test code = 5109086342) 0.0 See_Comment [Automated Sales[employer]ict ssage] The system which generated this result transmitted reference range: 0.0 - 10.0 /100 WBCs. The reference range was not used to interpret this result as normal/abnormal. NRBC x10^3 (test code = 9338786430) See_Comment [Automated messa ge] The system which generated this result transmitted reference range: 10*3/?L. The reference range was not used to interpret this result as normal/abnormal. GRAN MAT (NEUT) % (test code = 770-8) 64.5 % IMM GRAN % (test code = 1151725287) 0.30 % LYMPH % (test code = 736-9) 25.6 % MONO % (test code = 5905-5) 7.5 % EOS % (test code = 713-8) 1.0 % BASO % (test code = 706-2) 1.1 % GRAN MAT x10^3(ANC) (test code = 4842178300) 5.07 10*3/uL 1.88-7.09 IMM GRAN x10^3 (test code = 4037306708) 0.00-0.06 LYMPH x10^3 (test code = 731-0) 2.01 10*3/uL 1.32-3.29 MONO x10^3 (test code = 742-7) 0.59 10*3/uL 0.33-0.92 EOS x10^3 (test code = 711-2) 0.08 10*3/uL 0.03-0.39 BASO x10^3 (test code = 704-7) 0.09 10*3/uL 0.01-0.07 H Lab Interpretation (test code = 47147-5) Abnormal [facility] HospitalRPR2023-01-17 13:17:22* Test Item Value Reference Range Interpretation Comme nts RPR SCREEN ([employer]) (test co de = 420) Nonreactive Nonreactive HEMOGLOBIN [id number] 10:39:49* Test Item Value Reference Range Interpretation Comme nts HEMOGLOBIN A1C ELECTROPHORESIS ([employer]) (test code = 3811) 5.8 % See_Comment [...] 5.7- 6.4% indicates increased risk for diabetes (prediabetes)."Publication Editor ID - ADM VITAMIN [id number] 22:48:27* Test Item Value Reference Range Interpretation Comme nts VITAMIN B12 (BEAKER) (test c ode = 774) 227 pg/mL 213-816 Publication Editor ID - MARCOTSH/FREE T4 IF [id number] 22:08:28* Test Item Value Reference Range Interpretation Comme nts THYROID STIMULATING HORMONE (BEAKER) (test code = 772) 3.309 uIU/mL 0.350-4.940 Publication Editor ID - JSHIV-1 ANTIGEN WITH HIV-1/2 [id number] 22:08:28* Test Item Value Reference Range Interpretation Comme nts HIV-1 ANTIGEN WITH HIV 1\\T\\2 ANTIBODY (2) (BEAKER) (test code = 2586) Nonreactive Nonreactive Publication Editor ID - JSC-REACTIVE [id number] 21:49:44* Test Item Value Reference Range Interpretation Comme nts C-REACTIVE PROTEIN (BEAKER) (test code = 676) 0.35 mg/dL 0.00-0.50 Publication Editor ID - JSCOMPREHENSIVE METABOLIC [id number] 21:49:43* Test Item Value Reference Range Interpretation [...] GFR is not applicable for dialysis patients Publication Editor ID - JSLIPID [id number] 21:49:43* Test Item Value Reference Range Interpretation [...] Borderline 130-159 High 160-189 Very High >=190 Publication Editor ID - JSCBC W/PLT COUNT & AUTO [id number] 21:34:03* Test Item Value Reference Range Interpretation [...] Interpretation Comme nts Height (test code = 2395550227) in Weight (test code = 0420464534) lbs Systolic BP (test code = 2774359305) mmHg Diastolic BP (test code = 0411466926) mmHg Heart Rate (test code = 3342508269) bpm BSA (test code = 1382707179) 2.00 m2 Ao root diam (test code = 6890898043) 3.20 cm Aortic root (test code = 8348755562) 3.2 cm Ao root annulus (test code = 3643367501) 3.2 cm LVOT diameter (test code = 3773804501) 1.99 cm LVOT area (test code = 3414365529) 3.10 cm2 LVIDD (test code = 2684563658) 5.10 cm Left Ventricular End Diastolic Volume by Teichholz Method (test code = 4970662) 123.0 mL IVS (test code = 6905337211) 1.34 cm Interventricular Septum Diastolic Thickness by 2D (test code = 8768158) 1.34 cm LVPWD (test code = 9533799734) 1.34 cm PW (test code = 1763417862) 1.34 cm 0.6-1.1 EF(Teich) (test code = 9614375415) 41.80 % LVIDS (test code = 2766392437) 4.00 cm Left Ventricular End Systolic Volume by Teichholz Method (test code = 0894267) 71.5 mL FS (test code = 7804865592) 21 % EF - 2D (test code = 94267910) 41.80 % LA size (test code = 2321619455) 4.6 cm Pulmonic Regurgitant End Max Velocity (test code = 0064836780) 119.4 cm/s LAV(MOD-sp4) (test code = 6208980552) 95.00 mL E wave decelartion time (test code = 2765663513) 0.15 s MV stenosis pressure 1/2 time (test code = 4051303669) 45.6 ms MV Peak A Evette (test code = 0720403068) 123.8 cm/s MV Peak E Evette (test code = 5320795486) 109.7 cm/s E/A ratio (test code = 6193410474) ratio MR max PG (test code = 2257900858) 87.20 mm[Hg] MR max evette (test code = 4281911493) 466.90 cm/s Mr max evette (test code = 9641312822) 466.9 m/s MV Prop V (test code = 7344154678) 51.00 cm/s MV E/e' septal (test code = 9807599014) 8.1 cm/s Tapse (test code = 1279987799) 2.21 cm LVOT stroke volume (test code = 1250445791) 49.80 cm3 LVOT peak evette (test code = 6735148298) 89.1 cm/s LVOT mn grad (test code = 4258385084) mmHg AV LVOT peak gradient (test code = 0167542007) mmHg LVOT peak VTI (test code = 2699279923) 16.0 cm LV V1 mean (test code = 5241773496) 64.30 cm/s Aortic valve mean velocity (test code = 7756046795) 133.8 cm/s Ao peak evette (test code = 8916714128) 175.3 cm/s Ao VTI (test code = 9198052728) 32.2 cm AV area by cont VTI (test code = 7288849072) 1.6 cm2 AV area peak evette (test code = 4838359131) 1.6 cm2 Ao max PG (test code = 9255561795) 12.30 mm[Hg] AV peak gradient (test code = 9422483978) mmHg AV valve area (test code = 8645839665) 1.55 cm2 AV mean gradient (test code = 2275926652) mmHg AV regurgitation pressure 1/2 time (test code = 3461427787) 358.5 ms AI dec slope (test code = 8585765819) 364.20 cm/s2 AI max evette (test code = 8908619104) 445.80 cm/s AI max PG (test code = 8624727375) 79.50 mm[Hg] Radiology Study observation (narrative) (test code = 86725-6) LYNDSAY (test code = LYNDSAY) ?Left?Ventricle: Left [...] Lumason ultrasound enhancing agent used. [facility]PO[facility] (AUTOMATED)2022-08-01 10:43:32* Test Item Value Reference Range Interpretation [facility] POCT GLU (test code = 1344610472) 148 mg/dL 70-110 H Lab Interpretation (test cod e = 94062-1) Abnormal [facility] HospitalACTIVATED PARTIAL THRMPLAS [id number] 18:39:45* Test Item Value Reference Range Interpretation [facility] APTT Patient (test code = 3173-2) See_Comment [Automated message] The system which generated this result transmitted reference range: 23 - 38 Seconds. The reference range was not used to interpret this result as normal/abnormal. LYNDSAY (test code = LYNDSAY) The [facility] patient population mean normal value for aPTT is 30 seconds. Lab Interpretation (test code = 41381-2) Normal [facility] HospitalPROTHROMBIN TIME / [id number] 18:37:42* Test Item Value Reference Range Interpretation [facility] PROTIME PATIENT (test code = 5964-2) See_Comment [Automated [employer]] The system which generated this result transmitted reference range: 12.0 - 14.7 Seconds. The reference range was not used to interpret this result as normal/abnormal. INR (test code = 6301-6) Normal INR <1.1; Warfarin Therapeutic range 2.0 to 3.0 or 2.5 to 3.5, depending upon the indications. Lab Interpretation (test code = 69539-7) Normal [facility] HospitalTROPONIN [id number] 18:32:01* Test Item Value Reference Range Interpretation Comments TROPONIN I (test code = 6329901234) 0.019 ng/mL See_Comment [Automated message] The system [...] of biotin. Lab Interpretation (test code = 95631-8) Normal [facility] HospitalN-TERMINAL UET-[id number] 18:29:01* Test Item Value Reference Range Interpretation Comme nts NT-proBNP (test code = 8942465928) 2770 pg/mL See_Comment H [Automated message] The system which generated this result transmitted reference range: <=125. The reference range was not used to interpret this result as normal/abnormal. LYNDSAY (test code = LYNDSAY) Biotin has been reported to cause a negative bias, interpret results relative to patient's use of biotin. Lab Interpretation (test code = 95646-3) Abnormal [facility] HospitalCOMP. METABOLIC PANEL (81268)2022-07-31 18:21:42* Test Item Value Reference Range Interpretation Comme nts NA (test code = 0129934259) 136 mmol/L 135-145 K (test code = 0994751639) 4.6 mmol/L 3.5-5.0 CL (test code = 2221650561) 104 mmol/L 98-108 CO2 TOTAL (test code = 1344410941) 26 mmol/L 23-31 AGAP (test code = 7830945711) 2-16 BUN (test code = 6468175184) 9 mg/dL 7-23 GLUCOSE (test code = 5811368477) 97 mg/dL 70-110 CREATININE (test code = 8733691424) 0.64 mg/dL 0.50-1.04 TOTAL BILI (test code = 7416613468) 0.5 mg/dL 0.1-1.1 CALCIUM (test code = 7522154174) 8.2 mg/dL 8.6-10.6 L T PROTEIN (test code = 2313186450) 6.5 g/dL 6.3-8.2 ALBUMIN (test code = 5933190324) 3.9 g/dL 3.5-5.0 ALK PHOS (test code = 9447241789) 93 U/L 34-122 ALTv (test code = 1742-6) 18 U/L 5-35 AST(SGOT) (test code = 5411266158) 19 U/L 13-40 eGFR (test code = 7222202342) mL/min/1.73m2 LYNDSAY (test code = LYNDSAY) Association [...] imaging tests). Lab Interpretation (test code = 04764-3) Abnormal [facility] HospitalLIPASE2023-01-12 18:21:01* Test Item Value Reference Range Interpretation Comme nts LIPASE (test code = 5765098181) 54 U/L 0-220 Lab Interpretation (test cod e = 21241-1) Normal [facility] acute hospital WITH [id number] 18:07:00* Test Item Value Reference Range Interpretation Comme nts WBC (test code = 6690-2) See_Comment [Automated [employer]] The system which generated this result transmitted reference range: 4.30 - 11.10 10*3/?L. The reference range was not used to interpret this result as normal/abnormal. RBC (test code = 789-8) See_Comment [Automated [employer]] The system which generated this result transmitted [...] g/dL 31.6-35.1 L RDW-SD (test code = 29767-1) 53.1 fL 39.0-49.9 H RDW-CV (test code = 788-0) 17.0 % 12.0-15.5 H PLT (test code = 777-3) See_Comment H [Automated messa ge] The system which generated this result transmitted reference range: 166 - 358 10*3/?L. The reference range was not used to interpret this result as normal/abnormal. MPV (test code = 85168-3) 8.2 fL 9.5-12.9 L NRBC/100 WBC (test code = 8053024710) See_Comment [Automated me ssage] The system which generated this result transmitted reference range: 0.0 - 10.0 /100 WBCs. The reference range was not used to interpret this result as normal/abnormal. NRBC x10^3 (test code = 3625334036) See_Comment [Automated messa ge] The system which generated this result transmitted reference range: 10*3/?L. The reference range was not used to interpret this result as normal/abnormal. GRAN MAT (NEUT) % (test code = 770-8) 64.0 % IMM GRAN % (test code = 9987732270) 0.40 % LYMPH % (test code = 736-9) 27.3 % MONO % (test code = 5905-5) 6.5 % EOS % (test code = 713-8) 1.1 % BASO % (test code = 706-2) 0.7 % GRAN MAT x10^3(ANC) (test code = 8171272543) 5.46 10*3/uL 1.88-7.09 IMM GRAN x10^3 (test code = 2822299628) 0.03 10*3/uL 0.00-0.06 LYMPH x10^3 (test code = 731-0) 2.32 10*3/uL 1.32-3.29 MONO x10^3 (test code = 742-7) 0.55 10*3/uL 0.33-0.92 EOS x10^3 (test code = 711-2) 0.09 10*3/uL 0.03-0.39 BASO x10^3 (test code = 704-7) 0.06 10*3/uL 0.01-0.07 Lab Interpretation (test code = 53257-3) Abnormal [facility] METABOLIC PANEL (NA, K, CL, CO2, GLUCOSE, BUN, CREATININE, CA)2022-05-08 06:37:01* Test Item Value Reference Range Interpretation Comme nts NA (test code = 1218305200) 137 mmol/L 135-145 K (test code = 7611871102) 3.8 mmol/L 3.5-5 CL (test code = 4355258330) 103 mmol/L 98-108 CO2 TOTAL (test code = 6397671703) 24 mmol/L 23-31 AGAP (test code = 6472691081) 2-16 BUN (test code = 9995463954) 13 mg/dL 7-23 GLUCOSE (test code = 0468777758) 90 mg/dL 70-110 CREATININE (test code = 6520712531) 0.69 mg/dL 0.5-1.04 CALCIUM (test code = 6468214140) 8.5 mg/dL 8.6-10.6 L eGFR (test code = 8316372449) mL/min/1.73m2 LYNDSAY (test code = LYNDSAY) Association [...] imaging tests). Lab Interpretation (test code = 15246-9) Abnormal [facility] HospitalMAGNESIUM2022-10-20 06:37:01* Test Item Value Reference Range Interpretation Comme nts MAGNESIUM (test code = 7759533621) 2.1 mg/dL 1.7-2.4 Lab Interpretation (test cod e = 30304-5) Normal [facility] HospitalPHOSPHORUS2022-10-20 06:37:01* Test Item Value Reference Range Interpretation Comme nts PHOSPHORUS (test code = 2078860899) 4.7 mg/dL 2.5-5 Lab Interpretation (test cod e = 10587-7) Normal [facility] HospitalCBC WITH [id number] 06:11:54* Test Item Value Reference Range Interpretation [...] 32.4 g/dL 31.6-35.1 RDW-SD (test code = 14314-7) 51.0 fL 39-49.9 H RDW-CV (test code = 788-0) 16.5 % 12-15.5 H PLT (test code = 777-3) See_Comment H [Automated messa ge] The system which generated this result transmitted reference range: 166 - 358 10*3/?L. The reference range was not used to interpret this result as normal/abnormal. MPV (test code = 48844-9) 8.3 fL 9.5-12.9 L NRBC/100 WBC (test code = 5666495825) See_Comment [Automated me ssage] The system which generated this result transmitted reference range: 0.0 - 10.0 /100 WBCs. The reference range was not used to interpret this result as normal/abnormal. NRBC x10^3 (test code = 5073681817) See_Comment [Automated messa ge] The system which generated this result transmitted reference range: 10*3/?L. The reference range was not used to interpret this result as normal/abnormal. GRAN MAT (NEUT) % (test code = 770-8) 64.5 % IMM GRAN % (test code = 9156960710) 0.50 % LYMPH % (test code = 736-9) 27.1 % MONO % (test code = 5905-5) 6.6 % EOS % (test code = 713-8) 0.6 % BASO % (test code = 706-2) 0.7 % GRAN MAT x10^3(ANC) (test code = 5346840415) 5.28 10*3/uL 1.88-7.09 IMM GRAN x10^3 (test code = 5631344746) 0.04 10*3/uL 0-0.06 LYMPH x10^3 (test code = 731-0) 2.22 10*3/uL 1.32-3.29 MONO x10^3 (test code = 742-7) 0.54 10*3/uL 0.33-0.92 EOS x10^3 (test code = 711-2) 0.05 10*3/uL 0.03-0.39 BASO x10^3 (test code = 704-7) 0.06 10*3/uL 0.01-0.07 Lab Interpretation (test code = 96427-0) Abnormal [facility]PO[facility] (AUT[facility])2022-05-07 01:18:10* Test Item Value Reference Range Interpretation Comme nts POCT GLU (test code = 0309279037) 120 mg/dL 70-110 H Lab Interpretation (test cod e = 70896-0) Abnormal [facility] HospitalType and Screen - ONCE [id number] 05:46:35* Test Item Value Reference Range Interpretation Comme nts ABO & RH (test code = 20) O POSITIVE Performed at [facility] Laboratory Services - [facility] Blood [address] Free: [phone] No. [id number] IAT (test code = 1185) Negative Performed at [facility] Laboratory [facility] Blood [address] Free: [phone] No. [id number] [facility] HospitalBASI METABOLIC PANEL (NA, K, CL, CO2, GLUCOSE, BUN, CREATININE, CA)2022-05-05 08:22:57* Test Item Value Reference Range Interpretation Comme nts NA (test code = 4203283892) 136 mmol/L 135-145 K (test code = 9387415559) 4.9 mmol/L 3.5-5 CL (test code = 4432611276) 108 mmol/L 98-108 CO2 TOTAL (test code = 2409802170) 22 mmol/L 23-31 L AGAP (test code = 5335518791) 2-16 BUN (test code = 1663419045) 12 mg/dL 7-23 GLUCOSE (test code = 0335915787) 155 mg/dL 70-110 H CREATININE (test code = 8878156338) 0.63 mg/dL 0.5-1.04 CALCIUM (test code = 3920631934) 8.4 mg/dL 8.6-10.6 L eGFR (test code = 4588961170) mL/min/1.73m2 LYNDSAY (test code = LYNDSAY) Association [...] imaging tests). Lab Interpretation (test code = 28239-1) Abnormal [place] [facility] / DUZ2703-05-58 08:22:37* Test Item Value Reference Range Interpretation Comme [facility] PROTIME PATIENT (test code = 5964-2) See_Comment [Automated ThermoAura] The system which generated this result transmitted reference range: 10.1 - 12.6 Seconds. The reference range was not used to interpret this result as normal/abnormal. INR (test code = 6301-6) Normal INR <1.1; Warfarin Therapeutic range 2.0 to 3.0 or 2.5 to 3.5, depending upon the indications. Lab Interpretation (test code = 46658-3) Normal [facility] 08:22:37* Test Item Value Reference Range Interpretation Comme [facility] APTT Patient (test code = 3173-2) See_Comment [Lumexis] The system which generated this result transmitted reference range: 26 - 36 Seconds. The reference range was not used to interpret this result as normal/abnormal. Lab Interpretation (test code = 88296-5) Normal [facility]IB[facility]INOGEN2022-10-17 08:22:37* Test Item Value Reference Range Interpretation Comme [facility] Fibrinogen (test code = 5499182476) 294 mg/dL 167-453 Lab Interpretation (test cod e = 50018-4) Normal [facility]CB WITH [id number] 08:15:01* Test Item Value Reference Range Interpretation [...] g/dL 31.6-35.1 L RDW-SD (test code = 77156-2) 52.9 fL 39-49.9 H RDW-CV (test code = 788-0) 16.8 % 12-15.5 H PLT (test code = 777-3) See_Comment H [Automated messa ge] The system which generated this result transmitted reference range: 166 - 358 10*3/?L. The reference range was not used to interpret this result as normal/abnormal. MPV (test code = 81629-8) 8.3 fL 9.5-12.9 L NRBC/100 WBC (test code = 4381227539) See_Comment [Automated SalesPredict ssage] The system which generated this result transmitted reference range: 0.0 - 10.0 /100 WBCs. The reference range was not used to interpret this result as normal/abnormal. NRBC x10^3 (test code = 0309821942) See_Comment [Automated messa ge] The system which generated this result transmitted reference range: 10*3/?L. The reference range was not used to interpret this result as normal/abnormal. GRAN MAT (NEUT) % (test code = 770-8) 86.4 % IMM GRAN % (test code = 7234998405) 0.40 % LYMPH % (test code = 736-9) 11.7 % MONO % (test code = 5905-5) 1.1 % EOS % (test code = 713-8) 0.0 % BASO % (test code = 706-2) 0.4 % GRAN MAT x10^3(ANC) (test code = 3968500364) 6.36 10*3/uL 1.88-7.09 IMM GRAN x10^3 (test code = 4040341644) 0.03 10*3/uL 0-0.06 LYMPH x10^3 (test code = 731-0) 0.86 10*3/uL 1.32-3.29 L MONO x10^3 (test code = 742-7) 0.08 10*3/uL 0.33-0.92 L EOS x10^3 (test code = 711-2) 0.03-0.39 L BASO x10^3 (test code = 704-7) 0.03 10*3/uL 0.01-0.07 Lab Interpretation (test code = 88820-5) [facility]normal [facility] HospitalVIT[facility]IN D, [id number] 20:14:03* Test Item Value Reference Range Interpretation Comme nts VIT D 25OH (test code = 75320-2) 22 ng/mL 25-80 L LYNDSAY (test code = LYNDSAY) Deficiency: <20 ng/mLInsufficiency: 20-24 ng/mLOptimal: 25-80 ng/mL Lab Interpretation (test code = 60416-3) [facility]normal [facility]BASI MET[facility]OLIC PANEL (NA, K, CL, CO2, GLUCOSE, BUN, CREATININE, CA)2022-04-15 11:27:57* Test Item Value Reference Range Interpretation Comme nts NA (test code = 8079923047) 138 mmol/L 135-145 K (test code = 7381248439) 3.9 mmol/L 3.5-5 CL (test code = 5703283535) 106 mmol/L 98-108 CO2 TOTAL (test code = 7163916615) 23 mmol/L 23-31 AGAP (test code = 0263327521) 2-16 BUN (test code = 6876110986) 10 mg/dL 7-23 GLUCOSE (test code = 1157757110) 91 mg/dL 70-110 CREATININE (test code = 0937777626) 0.65 mg/dL 0.5-1.04 CALCIUM (test code = 0334742741) 8.1 mg/dL 8.6-10.6 L eGFR (test code = 4582837624) mL/min/1.73m2 LYNDSAY (test code = LYNDSAY) Association [...] imaging tests). Lab Interpretation (test code = 40104-4) [facility]normal [facility]STR[facility] Protocol - Transthoracic echo (TTE) 2022-04-14 22:07:33* Test Item Value Reference Range Interpretation Comme nts Height (test code = 1948839294) in Weight (test code = 0804794115) lbs Systolic BP (test code = 6005031336) mmHg Diastolic BP (test code = 0440797160) mmHg Heart Rate (test code = 2106333666) bpm BSA (test code = 1491644289) 1.94 m2 TASV (test code = 9053018837) 15.5 cm/s LVIDD (test code = 6158697958) 6.00 cm Left Ventricular End Diastolic Volume by Teichholz Method (test code = 9363585) 183.0 mL IVS (test code = 1858002224) 1.09 cm Interventricular Septum Diastolic Thickness by 2D (test code = 0889060) 1.09 cm LVPWD (test code = 7717242042) 0.94 cm PW (test code = 6332528008) 0.94 cm 0.6-1.1 EF(Teich) (test code = 4765976595) 40.30 % LVIDS (test code = 6946574273) 4.80 cm Left Ventricular End Systolic Volume by Teichholz Method (test code = 1333629) 109.2 mL FS (test code = 4433463761) 20 % EF - 2D (test code = 90205099) 40.30 % LVOT diameter (test code = 3635727696) 2.05 cm LVOT area (test code = 3381282911) 3.30 cm2 Ao root diam (test code = 4013384316) 3.10 cm Aortic root (test code = 1459641748) 3.1 cm Ao root annulus (test code = 1487308388) 3.1 cm LA size (test code = 9067850724) 4.2 cm LAV(MOD-sp4) (test code = 6188825250) 64.90 mL MV Peak A Evette (test code = 6755778295) 115.7 cm/s E wave decelartion time (test code = 3298598287) 0.15 s MV Peak E Evette (test code = 8789428041) 106.2 cm/s E/A ratio (test code = 3853964092) ratio LVOT stroke volume (test code = 0403140841) 48.30 cm3 LVOT peak evette (test code = 0429465673) 78.4 cm/s LVOT mn grad (test code = 9136604702) mmHg AV LVOT peak gradient (test code = 1782974969) mmHg LVOT peak VTI (test code = 8954875381) 14.7 cm LV V1 mean (test code = 0670681773) 51.40 cm/s Ao peak evette (test code = 0492249409) 154.7 cm/s AV area peak evette (test code = 3123213146) 1.7 cm2 Ao max PG (test code = 6166658380) 9.60 mm[Hg] AV peak gradient (test code = 2366361844) mmHg AV regurgitation pressure 1/2 time (test code = 1329448225) 257.3 ms AI dec slope (test code = 6995953692) 498.10 cm/s2 AI max evette (test code = 8082513934) 437.60 cm/s AI max PG (test code = 1334942631) 77.80 mm[Hg] Tapse (test code = 7821838522) 2.19 cm LA Volume Index (BP) (test code = 4069181592) 32.0 mL/m2 LA volume (BP) (test code = 4420643210) 62.1 mL LAV(MOD-sp2) (test code = 7334682323) 52.70 mL A4C EF (test code = 9079430338) 44.80 % EF(sp4-el) (test code = 6913309486) 45.20 % SV(MOD-sp4) (test code = 3872687978) 71.20 mL SV(sp4-el) (test code = 4250458914) 73.90 mL LV Diastolic Volume (BP) (test code = 0933768667) 146.3 mL A2C EF (test code = 4322064471) 52.00 % EF(MOD-bp) (test code = 0788324834) 46.70 % EF(sp2-el) (test code = 7637772261) 52.40 % LV Systolic Volume (BP) (test code = 9102197082) 77.9 mL SV(MOD-bp) (test code = 0527868170) 68.40 mL SV(MOD-sp2) (test code = 5939315226) 69.20 mL EF (test code = 0455298203) Left Ventricular Stroke Volume by 2-D Biplane-MOD (test code = 1491022) 68.4 mL Radiology Study observation (narrative) (test code = 28576-2) LYNDSAY (test code = LYNDSAY) ?Left?Ventricle: Left [...] agent used and saline contrast was performed. [facility]22-[facility]-14 16:48:36* Test Item Value Reference Range Interpretation Comme nts ADRIÁNRA (test code = 9411328677) 12-46 L LYNDSAY (test code = LYNDSAY) Therapeutic range: 12-46 ?g/mL ? ?Toxic: Not well established.Test developed and characteristics determined by [facility] Laboratory Services. Lab Interpretation (test code = 43968-2) Abnormal [facility] Metabolic Panel (Na, K, Cl, CO2, Glucose, BUN, Creatinine, Ca)2022-04-14 10:50:11* Test Item Value Reference Range Interpretation Comme nts NA (test code = 9678903406) 136 mmol/L 135-145 K (test code = 3174379860) 3.8 mmol/L 3.5-5 CL (test code = 3087877199) 105 mmol/L 98-108 CO2 TOTAL (test code = 7425391793) 25 mmol/L 23-31 AGAP (test code = 9494452491) 2-16 BUN (test code = 8921213685) 9 mg/dL 7-23 GLUCOSE (test code = 0171828438) 101 mg/dL 70-110 CREATININE (test code = 8781061166) 0.66 mg/dL 0.5-1.04 CALCIUM (test code = 6051944197) 8.1 mg/dL 8.6-10.6 L eGFR (test code = 3109284481) mL/min/1.73m2 LYNDSAY (test code = LYNDSAY) Association [...] imaging tests). Lab Interpretation (test code = 10487-7) [facility]normal [facility] HospitalMagensium, [id number] 10:50:11* Test Item Value Reference Range Interpretation Comme nts MAGNESIUM (test code = 9107558194) 1.9 mg/dL 1.7-2.4 Lab Interpretation (test cod e = 96970-4) Normal [facility] HospitalThyroid Stimulating Jvwskbs5237-99-83 22:21:44 * Test Item Value Reference Range Interpretation Comme nts TSH (test code = 3664642469) See_Comment Biotin has been reported to cause a negative bias, interpret results relative to patient's use of biotin. [Automated message] The system which generated this result transmitted reference range: 0.45 - 4.70 mIU/L. The reference range was not used to interpret this result as normal/abnormal. Lab Interpretation (test code = 46549-3) Normal [facility] HospitalGLYCOSYLATED HEMOGLOBIN (A1C)2022-04-13 21:53:43* Test Item Value Reference Range Interpretation Comme nts HGB A1C (test code = 4548-4) 5.8 % 4-5.7 H LYNDSAY (test code = LYNDSAY) Reference RangesNormal: <5.7%Prediabetes: 5.7 - 6.4%Diabetes: > 6.5% Lab Interpretation (test code = 42465-4) Abnormal [facility] HospitalFASTING LIPID PANEL (38676)(TOTAL CHOLESTEROL, TRIGLYCERIDES, HDL)2022-04-13 21:34:53* Test Item Value Reference Range Interpretation Comme nts CHOL (test code = 0481205606) 201 mg/dL 120-200 H HDL (test code = 4267540891) 56 mg/dL See_Comment [Automated ThermoAura] The system which generated this result transmitted reference range: >=50. The reference range was not used to interpret this result as normal/abnormal. HDLC RATIO (test code = 2613763061) See_Comment [Automated Adapta Updater] The system which generated this result transmitted reference range: <=4.5. The reference range was not used to interpret this result as normal/abnormal. TRIG (test code = 0452265655) 355 mg/dL 30-170 H LDL CHOL (test code = 75983-2) 74 mg/dL See_Comment [Automated ThermoAura] The system which generated this result transmitted reference range: <=160. The reference range was not used to interpret this result as normal/abnormal. VLDL (test code = 4242707810) 71 mg/dL 5-60 H Lab Interpretation (test code = 51687-1) Abnormal [facility] HospitalTroponin I - Code Tedlzu3849-06-57 18:46:27* Test Item Value Reference Range Interpretation Comments TROPONIN I (test code = 1723590498) 0.013 ng/mL See_Comment [Automated message] The system [...] of biotin. Lab Interpretation (test code = 00808-3) Normal [facility] (NA, K, CL, CO2, Glucose, BUN, Creatinine, CA) - Code Cipzly7371-17-22 18:35:07* Test Item Value Reference Range Interpretation Comme nts NA (test code = 2404442464) 136 mmol/L 135-145 K (test code = 2811199151) 4.3 mmol/L 3.5-5 CL (test code = 0522065509) 105 mmol/L 98-108 CO2 TOTAL (test code = 1912455652) 27 mmol/L 23-31 AGAP (test code = 6540551492) 2-16 BUN (test code = 3523963248) 8 mg/dL 7-23 GLUCOSE (test code = 1662206321) 130 mg/dL 70-110 H CREATININE (test code = 2822049286) 0.75 mg/dL 0.5-1.04 CALCIUM (test code = 1555595206) 8.5 mg/dL 8.6-10.6 L eGFR (test code = 7746699603) mL/min/1.73m2 LYNSDAY (test code = LYNDSAY) Association of Glomerular [...] imaging tests). Lab Interpretation (test code = 88208-7) Abnormal [facility]aPTT - Code Htpfjr9072-56-27 18:32:46* Test Item Value Reference Range Interpretation [...] 30 seconds. Lab Interpretation (test code = 56797-0) Normal [facility] HospitalProthrombin Time / INR - Code Rjuuos1071-03-84 18:30:45* Test Item Value Reference Range Interpretation [...] the indications. Lab Interpretation (test code = 27677-7) Normal [facility] HospitalCBC without Diff - Code Mlfbkg9296-52-75 18:23:07* Test Item Value Reference Range Interpretation [...] result as normal/abnormal. MPV (test code = 64302-6) 8.1 fL 9.5-12.9 L RDW-CV (test code = 788-0) 16.1 % 12-15.5 H RDW-SD (test code = 31322-5) 49.2 fL 39-49.9 NRBC x10^3 (test code = 0140262080) See_Comment [Automated Adapta Updater] The system which generated this result transmitted reference range: 10*3/?L. The reference range was not used to interpret this result as normal/abnormal. NRBC/100 WBC (test code = 1359323141) See_Comment [Automated Adapta Updater] The system which generated this result transmitted reference range: 0.0 - 10.0 /100 WBCs. The reference range was not used to interpret this result as normal/abnormal. IPF % (test code = 9100270718) Lab Interpretation (test code = 91341-6) Abnormal [facility] HospitalTROPONIN Z3704-64-00 21:06:40* Test Item Value Reference Range Interpretation Comments TROPONIN I (test code = 3768005079) 0.005 ng/mL See_Comment [Automated message] The system [...] of biotin. Lab Interpretation (test code = 91732-9) Normal [facility] HospitalCOM. METABOLIC PANEL (39410)2021-11-23 20:55:42* Test Item Value Reference Range Interpretation Comme nts NA (test code = 4941119725) 137 mmol/L 135-145 K (test code = 5863607742) 4.3 mmol/L 3.5-5.0 CL (test code = 5873191606) 104 mmol/L 98-108 CO2 TOTAL (test code = 9308764047) 22 mmol/L 23-31 L AGAP (test code = 8448179478) 2-16 BUN (test code = 7197438841) 15 mg/dL 7-23 GLUCOSE (test code = 7301595075) 114 mg/dL 70-110 H CREATININE (test code = 4880123548) 0.68 mg/dL 0.50-1.04 TOTAL BILI (test code = 9216245248) 0.5 mg/dL 0.1-1.1 CALCIUM (test code = 5724837159) 9.1 mg/dL 8.6-10.6 T PROTEIN (test code = 3207166570) 7.3 g/dL 6.3-8.2 ALBUMIN (test code = 7265530366) 4.4 g/dL 3.5-5.0 ALK PHOS (test code = 8581751113) 243 U/L 34-122 H ALTv (test code = 1742-6) 24 U/L 5-35 AST(SGOT) (test code = 6997056796) 30 U/L 13-40 eGFR (test code = 8578387126) mL/min/1.73m2 LYNDSAY (test code = LYNDSAY) Association [...] imaging tests). Lab Interpretation (test code = 73991-1) Abnormal [facility] HospitalLIPASE2022-05-07 20:55:22* Test Item Value Reference Range Interpretation Comme nts LIPASE (test code = 3715185036) 96 U/L 0-220 Lab Interpretation (test cod e = 59892-8) Normal [facility] HospitalPOCT USEE9059-82-77 20:46:00* Test Item Value Reference Range Interpretation Comme nts POCT PREG (test code = 1605) negative On board controls acceptable with C Line (test code = 3574) present POCT PREG LOT # (test code = 3575) [id number] POCT PREG TEST DATE ( test code = 3576) 04/18/2023 Lab Interpretation (test cod e = 61486-8) Normal [facility] HospitalCBC WITH KMSM0311-12-20 20:40:38* Test Item Value Reference Range Interpretation Comme nts WBC (test code = 6690-2) See_Comment [Automated ThermoAura] The system which generated this result transmitted reference range: 4.30 - 11.10 10*3/?L. The reference range was not used to interpret this result as normal/abnormal. RBC (test code = 789-8) See_Comment [Automated ThermoAura] The system which generated this result transmitted [...] 31.8 g/dL 31.6-35.1 RDW-SD (test code = 07448-7) 53.7 fL 39.0-49.9 H RDW-CV (test code = 788-0) 17.2 % 12.0-15.5 H PLT (test code = 777-3) See_Comment H [Automated messa ge] The system which generated this result transmitted reference range: 166 - 358 10*3/?L. The reference range was not used to interpret this result as normal/abnormal. MPV (test code = 32784-0) 8.5 fL 9.5-12.9 L NRBC/100 WBC (test code = 6695042739) See_Comment [Automated me ssage] The system which generated this result transmitted reference range: 0.0 - 10.0 /100 WBCs. The reference range was not used to interpret this result as normal/abnormal. NRBC x10^3 (test code = 5196179925) <0.01 See_Comment [Automated messa ge] The system which generated this result transmitted reference range: 10*3/?L. The reference range was not used to interpret this result as normal/abnormal. GRAN MAT (NEUT) % (test code = 770-8) 53.7 % IMM GRAN % (test code = 1095850906) 0.90 % LYMPH % (test code = 736-9) 32.6 % MONO % (test code = 5905-5) 10.1 % EOS % (test code = 713-8) 1.5 % BASO % (test code = 706-2) 1.2 % GRAN MAT x10^3(ANC) (test code = 3705114236) 4.98 10*3/uL 1.88-7.09 IMM GRAN x10^3 (test code = 9826091500) 0.08 10*3/uL 0.00-0.06 H LYMPH x10^3 (test code = 731-0) 3.02 10*3/uL 1.32-3.29 MONO x10^3 (test code = 742-7) 0.94 10*3/uL 0.33-0.92 H EOS x10^3 (test code = 711-2) 0.14 10*3/uL 0.03-0.39 BASO x10^3 (test code = 704-7) 0.11 10*3/uL 0.01-0.07 H Lab Interpretation (test code = 89082-3) Abnormal [facility] HospitalPOCT GLUCOSE (AUTOMATED)2021-11-23 20:17:33* Test Item Value Reference Range Interpretation Comme [facility] POCT GLU (test code = 4790011680) 111 mg/dL 70-110 H Notified Provide r Lab Interpretation (test code = 27318-1) Abnormal [facility] HospitalPAP TEST, THINPREP, [id number] 00:00:00 * Test Item Value Reference Range Interpretation Comme nts SOURCE: (test code = 8001) Endocervical SLIDES: (test code = 8011) 1 LMP: (test code = 8021) 06/03/2021 SPECIMEN ADEQUACY: (test code = 38838) (NOTE) INTERPRETATION: (test code = 05896) ASCUS/EPITH. ABNORMALITY; SEE BELOW AGRICULTURAL ENGINEERING TEACHER: (test code = 8101) CHANA Thacker(ASCP)[facility] PATHOLOGIST INTERPRETATION BY: (test code = 8122) Nahid Russell M.D. LOCATION: (test code = 18024) (NOTE) CPT: (test code = 8140) (NOTE) PAP TEST, THINPREP, [id number] 00:00:00* Test Item Value Reference Range Interpretation Comme [facility] SOURCE: (test code = 8001) Endocervical SLIDES: (test code = 8011) 1 LMP: (test code = 8021) 06/03/2021 SPECIMEN ADEQUACY: (test code = 65052) (NOTE) INTERPRETATION: (test code = 18759) ASCUS/EPITH. ABNORMALITY; SEE BELOW AGRICULTURAL ENGINEERING TEACHER: (test code = 8101) CHANA Thacker(ASCP)[facility] PATHOLOGIST INTERPRETATION BY: (test code = 8122) Nahid Russell M.D. LOCATION: (test code = 23182) (NOTE) CPT: (test code = 8140) (NOTE) HPV HIGH RISK WITH GENOTYPE, [id number] 00:00:00* Test Item Value Reference Range Interpretation Comme [facility] HPV HIGH RISK INTERP (test c ode = 41735) POSITIVE HPV 16 (test code = 76637) POSITIVE HPV 18 (test code = 96142) NEGATIVE HPV, HR, OTHER GENOTYPES (te st code = 43225) POSITIVE HPV HIGH RISK WITH GENOTYPE, [id number] 00:00:00* Test Item Value Reference Range Interpretation Comme nts HPV HIGH RISK INTERP (test c ode = 28612) POSITIVE HPV 16 (test code = 96631) POSITIVE HPV 18 (test code = 93780) NEGATIVE HPV, HR, OTHER GENOTYPES (te st code = 63953) POSITIVE [id number] 03:22:48* Test Item Value Reference Range Interpretation Comme nts APPEARANCE (test code = 9356846604) Hazy Clear A COLOR (test code = 4086144553) Yellow Yellow PH (test code = 8360713519) 4.8-8.0 SP GRAVITY (test code = 6476140751) 1.003-1.030 GLU U QUAL (test code = 3644082351) Normal Normal BLOOD (test code = 5215014452) Negative Negative Interference fro m ascorbic acid may cause false negative results. KETONES (test code = 9852135024) 5 mg/dL Negative A PROTEIN (test code = 2887-8) Negative Negative UROBILIN (test code = 9926315831) 4.0 mg/dL Normal A BILIRUBIN (test code = 1448393529) Negative Negative NITRITE (test code = 8507635245) Negative Negative LEUK GRUPO (test code = 2028120175) Negative Negative RBC/HPF (test code = 3974574687) See_Comment [Automated Adapta ge] The system which generated this result transmitted reference range: 0 - 3 HPF. The reference range was not used to interpret this result as normal/abnormal. WBC/HPF (test code = 8270625561) <1 See_Comment [Automated Adapta ge] The system which generated this result transmitted reference range: 0 - 5 HPF. The reference range was not used to interpret this result as normal/abnormal. BACTERIA (test code = 5486657687) Few Negative A SQ EPITH (test code = 7679667578) HPF Lab Interpretation (test code = 41991-2) Abnormal [facility]URINALYSIS2021-08-29 03:22:48* Test Item Value Reference Range Interpretation Comme nts APPEARANCE (test code = 5060030761) Hazy Clear A COLOR (test code = 9381631337) Yellow Yellow PH (test code = 0278666720) 4.8-8.0 SP GRAVITY (test code = 7804625011) 1.003-1.030 GLU U QUAL (test code = 6235403497) Normal Normal BLOOD (test code = 7478794489) Negative Negative KETONES (test code = 3330392730) 5 mg/dL Negative A PROTEIN (test code = 2887-8) Negative Negative UROBILIN (test code = 4099975504) 4.0 mg/dL Normal A BILIRUBIN (test code = 8468169175) Negative Negative NITRITE (test code = 9509726270) Negative Negative LEUK GRUPO (test code = 2204505437) Negative Negative RBC/HPF (test code = 4609849171) See_Comment [Automated ThermoAura] The system which generated this result transmitted reference range: 0 - 3 HPF. The reference range was not used to interpret this result as normal/abnormal. WBC/HPF (test code = 7611532806) <1 See_Comment [Automated ThermoAura] The system which generated this result transmitted reference range: 0 - 5 HPF. The reference range was not used to interpret this result as normal/abnormal. BACTERIA (test code = 7312126290) Few Negative A SQ EPITH (test code = 9523032595) HPF Lab Interpretation (test code = 55560-9) Abnormal [facility] [id number] 02:45:00* Test Item Value Reference Range Interpretation Comments TROPONIN I (test code = 6998426939) 0.002 ng/mL See_Comment [Automated message] The system [...] of biotin. Lab Interpretation (test code = 40848-5) Normal [facility] HospitalTROPONIN [id number] 02:45:00* Test Item Value Reference Range Interpretation Comme nts TROPONIN I (test code = 6117871538) 0.002 ng/mL See_Comment [Automated messa ge] The system which generated this result transmitted reference range: <=0.034. The reference range was not used to interpret this result as normal/abnormal. LYNDSAY (test code = LYNDSAY) Lab Interpretation (test code = 13860-7) Normal [facility] HospitalN-TERMINAL TIL-SNX2308-00-29 02:41:57* Test Item Value Reference Range Interpretation Comme nts NT-proBNP (test code = 4428666015) 169 pg/mL See_Comment H [Automated message] The system which generated this result transmitted reference range: <=125. The reference range was not used to interpret this result as normal/abnormal. LYNDSAY (test code = LYNDSAY) Biotin has been reported to cause a negative bias, interpret results relative to patient's use of biotin. Lab Interpretation (test code = 63416-4) Abnormal [facility]N-TERMINAL NGA-[id number] 02:41:57* Test Item Value Reference Range Interpretation Comme nts NT-proBNP (test code = 5428365798) 169 pg/mL See_Comment H [Automated messa Updater] The system which generated this result transmitted reference range: <=125. The reference range was not used to interpret this result as normal/abnormal. LYNDSAY (test code = LYNDSAY) Lab Interpretation (test code = 87743-6) Abnormal [facility] HospitalCOM. METABOLIC PANEL (67701)2021-03-17 02:09:13* Test Item Value Reference Range Interpretation Comme nts NA (test code = 7222153811) 137 mmol/L 135-145 K (test code = 2192885948) 4.2 mmol/L 3.5-5.0 CL (test code = 7937216148) 102 mmol/L 98-108 CO2 TOTAL (test code = 3647619207) 25 mmol/L 23-31 AGAP (test code = 4076287757) 2-16 BUN (test code = 0458604249) 18 mg/dL 7-23 GLUCOSE (test code = 7839994308) 144 mg/dL 70-110 H CREATININE (test code = 8151035646) 0.77 mg/dL 0.50-1.04 TOTAL BILI (test code = 1247499286) 0.4 mg/dL 0.1-1.1 CALCIUM (test code = 3720567748) 8.9 mg/dL 8.6-10.6 T PROTEIN (test code = 8627437025) 6.8 g/dL 6.3-8.2 ALBUMIN (test code = 6457838285) 3.9 g/dL 3.5-5.0 ALK PHOS (test code = 2935673648) 84 U/L 34-122 ALTv (test code = 1742-6) 13 U/L 5-35 AST(SGOT) (test code = 7445604502) 17 U/L 13-40 eGFR (test code = 7191760529) mL/min/1.73m2 LYNDSAY (test code = LYNDSAY) Association [...] imaging tests). Lab Interpretation (test code = 95335-9) [facility] (81960)2021-03-17 02:09:13* Test Item Value Reference Range Interpretation Comme nts NA (test code = 0598786581) 137 mmol/L 135-145 K (test code = 5958011078) 4.2 mmol/L 3.5-5.0 CL (test code = 4348628445) 102 mmol/L 98-108 CO2 TOTAL (test code = 4124579761) 25 mmol/L 23-31 AGAP (test code = 1946111380) 2-16 BUN (test code = 2493741539) 18 mg/dL 7-23 GLUCOSE (test code = 3313984332) 144 mg/dL 70-110 H CREATININE (test code = 2414520877) 0.77 mg/dL 0.50-1.04 TOTAL BILI (test code = 5568617650) 0.4 mg/dL 0.1-1.1 CALCIUM (test code = 3527032337) 8.9 mg/dL 8.6-10.6 T PROTEIN (test code = 2756292540) 6.8 g/dL 6.3-8.2 ALBUMIN (test code = 4099063622) 3.9 g/dL 3.5-5.0 ALK PHOS (test code = 8663812894) 84 U/L 34-122 ALTv (test code = 1742-6) 13 U/L 5-35 AST(SGOT) (test code = 1074643676) 17 U/L 13-40 eGFR (test code = 3392143288) mL/min/1.73m2 LYNDSAY (test code = LYNDSAY) Lab Interpretation (test cod e = 28521-5) Abnormal General acute hospital WITH [id number] 01:56:33* Test Item Value Reference Range Interpretation Comme nts WBC (test code = 6690-2) See_Comment H [Automated [employer]] The system which generated this result transmitted [...] g/dL 31.6-35.1 L RDW-SD (test code = 68142-6) 55.5 fL 39.0-49.9 H RDW-CV (test code = 788-0) 18.9 % 12.0-15.5 H PLT (test code = 777-3) See_Comment H [Automated messa ge] The system which generated this result transmitted reference range: 166 - 358 10*3/?L. The reference range was not used to interpret this result as normal/abnormal. MPV (test code = 51030-2) 8.2 fL 9.5-12.9 L NRBC/100 WBC (test code = 4587564260) See_Comment [Automated [employer] ssage] The system which generated this result transmitted reference range: 0.0 - 10.0 /100 WBCs. The reference range was not used to interpret this result as normal/abnormal. NRBC x10^3 (test code = 9281974885) <0.01 See_Comment [Automated messa ge] The system which generated this result transmitted reference range: 10*3/?L. The reference range was not used to interpret this result as normal/abnormal. GRAN MAT (NEUT) % (test code = 770-8) 61.7 % IMM GRAN % (test code = 7477029809) 0.80 % LYMPH % (test code = 736-9) 28.5 % MONO % (test code = 5905-5) 6.3 % EOS % (test code = 713-8) 1.8 % BASO % (test code = 706-2) 0.9 % GRAN MAT x10^3(ANC) (test code = 4020974322) 7.31 10*3/uL 1.88-7.09 H IMM GRAN x10^3 (test code = 0603815876) 0.09 10*3/uL 0.00-0.06 H LYMPH x10^3 (test code = 731-0) 3.38 10*3/uL 1.32-3.29 H MONO x10^3 (test code = 742-7) 0.75 10*3/uL 0.33-0.92 EOS x10^3 (test code = 711-2) 0.21 10*3/uL 0.03-0.39 BASO x10^3 (test code = 704-7) 0.11 10*3/uL 0.01-0.07 H Lab Interpretation (test code = 57328-2) Abnormal General acute hospital WITH [id number] 01:56:33* Test Item Value Reference Range Interpretation Comme nts WBC (test code = 6690-2) See_Comment H [Automated Adapta ge] The system which generated this result transmitted reference range: 4.30 - 11.10 10*3/?L. The reference range was not used to interpret this result as normal/abnormal. RBC (test code = 789-8) See_Comment [Automated Adapta ge] The system which generated this result [...] g/dL 31.6-35.1 L RDW-SD (test code = 21465-7) 55.5 fL 39.0-49.9 H RDW-CV (test code = 788-0) 18.9 % 12.0-15.5 H PLT (test code = 777-3) See_Comment H [Automated messa ge] The system which generated this result transmitted reference range: 166 - 358 10*3/?L. The reference range was not used to interpret this result as normal/abnormal. MPV (test code = 17633-6) 8.2 fL 9.5-12.9 L NRBC/100 WBC (test code = 4296010644) See_Comment [Automated me ssage] The system which generated this result transmitted reference range: 0.0 - 10.0 /100 WBCs. The reference range was not used to interpret this result as normal/abnormal. NRBC x10^3 (test code = 9302468553) <0.01 See_Comment [Automated messa ge] The system which generated this result transmitted reference range: 10*3/?L. The reference range was not used to interpret this result as normal/abnormal. GRAN MAT (NEUT) % (test code = 770-8) 61.7 % IMM GRAN % (test code = 0672329899) 0.80 % LYMPH % (test code = 736-9) 28.5 % MONO % (test code = 5905-5) 6.3 % EOS % (test code = 713-8) 1.8 % BASO % (test code = 706-2) 0.9 % GRAN MAT x10^3(ANC) (test code = 9080598901) 7.31 10*3/uL 1.88-7.09 H IMM GRAN x10^3 (test code = 9357060070) 0.09 10*3/uL 0.00-0.06 H LYMPH x10^3 (test code = 731-0) 3.38 10*3/uL 1.32-3.29 H MONO x10^3 (test code = 742-7) 0.75 10*3/uL 0.33-0.92 EOS x10^3 (test code = 711-2) 0.21 10*3/uL 0.03-0.39 BASO x10^3 (test code = 704-7) 0.11 10*3/uL 0.01-0.07 H Lab Interpretation (test code = 28292-2) Abnormal [facility]-19 (ID NOW RAPID TESTING)2021-03-17 01:38:12* Test Item Value Reference Range Interpretation Comme nts SARS-CoV-2 Rapid ID NOW (test code = 12939-6) Not Detected Not Detected LYNDSAY (test code = LYNDSAY) ID NOW COVID-19 As say is an isothermal nucleic acid amplification test intended for the qualitative detection of nucleic acid from SARS-CoV-2 viral RNA in nasopharyngeal (PRODUCTION OPERATIONS MANAGER) specimens. It is used under Emergency Use Authorization (EUA) by . The limit of detection (LOD) of the [...] clinically indicated. Lab Interpretation (test code = 96580-0) Normal [place] [address] (ID NOW RAPID TESTING)2021-03-17 01:38:12* Test Item Value Reference Range Interpretation Comme nts SARS-CoV-2 Rapid ID NOW (raisa t code = 36802-3) Not Detected Not Detected LYNDSAY (test code = LYNDSAY) Lab Interpretation (test cod e = 89327-4) Normal [place] [address] (ID NOW RAPID TESTING)2021-02-19 17:42:45* Test Item Value Reference Range Interpretation Comme nts SARS-CoV-2 Rapid ID NOW (test code = 55870-2) Not Detected Not Detected LYNDSAY (test code = LYNDSAY) ID NOW COVID-19 As say is an isothermal nucleic acid amplification test intended for the qualitative detection of nucleic acid from SARS-CoV-2 viral RNA in nasopharyngeal (PRODUCTION OPERATIONS MANAGER) specimens. It is used under Emergency Use Authorization (EUA) by . The limit of detection (LOD) of the [...] clinically indicated. Lab Interpretation (test code = 17165-6) Normal [facility] PELVIS W [id number] 17:24:55Thickening of the gastric antrum and duodenal [...] Electronicallysigned by James Freeman at 02/19/2021 12:24 PM[facility] HospitalUrinalysis2021-08-03 17:03:40* Test Item Value Reference Range Interpretation Comme nts APPEARANCE (test code = 6919600784) Hazy Clear A COLOR (test code = 9657307651) Mabel Yellow A PH (test code = 1216057912) 4.8-8.0 SP GRAVITY (test code = 9072035040) 1.003-1.030 H GLU U QUAL (test code = 4391545708) Normal Normal BLOOD (test code = 4500169700) Negative Negative KETONES (test code = 8999787952) 5 mg/dL Negative A PROTEIN (test code = 2887-8) 30 mg/dL Negative A UROBILIN (test code = 3530063339) 4.0 mg/dL Normal A BILIRUBIN (test code = 3078554815) 4 mg/dL Negative A NITRITE (test code = 2791396097) Negative Negative LEUK GRUPO (test code = 9646885879) Negative Negative RBC/HPF (test code = 8033849150) See_Comment H [Automated messa ge] The system which generated this result transmitted reference range: 0 - 3 HPF. The reference range was not used to interpret this result as normal/abnormal. WBC/HPF (test code = 5141717855) See_Comment H [Automated messa ge] The system which generated this result transmitted reference range: 0 - 5 HPF. The reference range was not used to interpret this result as normal/abnormal. BACTERIA (test code = 5253634015) Few Negative A MUCOUS (test code = 9533606361) Moderate Negative LPF A SQ EPITH (test code = 5369636119) HPF CA OXALATE (test code = 8852136692) See_Comment H [Automated messa ge] The system which generated this result transmitted reference range: <=1 HPF. The reference range was not used to interpret this result as normal/abnormal. Ictotest (test code = 0808117567) Negative Lab Interpretation (test code = 05345-8) Abnormal [facility] Metabolic [id number] 16:34:55* Test Item Value Reference Range Interpretation Comme nts NA (test code = 9914721906) 139 mmol/L 135-145 K (test code = 9645504827) 4.3 mmol/L 3.5-5.0 CL (test code = 9922920399) 105 mmol/L 98-108 CO2 TOTAL (test code = 7411783293) 26 mmol/L 23-31 AGAP (test code = 8064197857) 2-16 BUN (test code = 4974230466) 11 mg/dL 7-23 GLUCOSE (test code = 6938563814) 95 mg/dL 70-110 CREATININE (test code = 8020083010) 0.70 mg/dL 0.50-1.04 TOTAL BILI (test code = 4890801671) 0.6 mg/dL 0.1-1.1 CALCIUM (test code = 5799228849) 8.9 mg/dL 8.6-10.6 T PROTEIN (test code = 9501676010) 7.7 g/dL 6.3-8.2 ALBUMIN (test code = 5843661926) 4.1 g/dL 3.5-5.0 ALK PHOS (test code = 8874351859) 79 U/L 34-122 ALTv (test code = 1742-6) 10 U/L 5-35 AST(SGOT) (test code = 7065200440) 22 U/L 13-40 eGFR (test code = 6258159185) mL/min/1.73m2 LYNDSAY (test code = LYNDSAY) Association [...] or abnormalities in imaging tests). [facility] HospitalLipase, [id number] 16:34:14* Test Item Value Reference Range Interpretation Comme nts LIPASE (test code = 9166504960) 45 U/L 0-220 Lab Interpretation (test cod e = 85714-7) Normal [facility] with [id number] 16:21:12* Test Item Value Reference Range Interpretation Comme nts WBC (test code = 6690-2) See_Comment [Automated Adapta ge] The system which generated this result [...] g/dL 31.6-35.1 L RDW-SD (test code = 53381-6) 54.4 fL 39.0-49.9 H RDW-CV (test code = 788-0) 18.3 % 12.0-15.5 H PLT (test code = 777-3) See_Comment H [Automated messa ge] The system which generated this result transmitted reference range: 166 - 358 10*3/?L. The reference range was not used to interpret this result as normal/abnormal. MPV (test code = 47338-1) 8.5 fL 9.5-12.9 L NRBC/100 WBC (test code = 2145747639) See_Comment [Automated me ssage] The system which generated this result transmitted reference range: 0.0 - 10.0 /100 WBCs. The reference range was not used to interpret this result as normal/abnormal. NRBC x10^3 (test code = 6731351817) <0.01 See_Comment [Automated messa ge] The system which generated this result transmitted reference range: 10*3/?L. The reference range was not used to interpret this result as normal/abnormal. GRAN MAT (NEUT) % (test code = 770-8) 78.3 % IMM GRAN % (test code = 3993784685) 0.40 % LYMPH % (test code = 736-9) 15.4 % MONO % (test code = 5905-5) 4.8 % EOS % (test code = 713-8) 0.1 % BASO % (test code = 706-2) 1.0 % GRAN MAT x10^3(ANC) (test code = 9021584419) 7.15 10*3/uL 1.88-7.09 H IMM GRAN x10^3 (test code = 0835631800) 0.04 10*3/uL 0.00-0.06 LYMPH x10^3 (test code = 731-0) 1.41 10*3/uL 1.32-3.29 MONO x10^3 (test code = 742-7) 0.44 10*3/uL 0.33-0.92 EOS x10^3 (test code = 711-2) <0.03 0.03-0.39 L BASO x10^3 (test code = 704-7) 0.09 10*3/uL 0.01-0.07 H Lab Interpretation (test code = 59696-4) Abnormal [facility] Consult Notes Date/Time Note Provider Source 2024-01-10 12:39:30 Associated Order(s): CONSULT CARDIOLOGY [facility] Cardiology Consult PCP: PATIENT DOES NOT HAVE A PCP Date of Service: 01/10/2024 CHIEF COMPLAINT/reason for consult: Chest pain HISTORY OF PRESENT ILLNESS This is a 53 years old female with past medical history of smoking, COPD, hypertension, obesity, nonobstructive coronary artery disease, systolic and diastolic heart failure, left ventricular thrombosis and pulm hypertension. She presented to [facility] emergency room with chest pain. She [...] (chronic obstructive pulmonary disease) Diverticulitis Epilepsy Hypertension ME (myocardial infarction) 07/20/2007 Slipped disc Stomach cancer Substance abuse Marijuana daily-for anxiety Past Surgical History: Procedure Laterality Date ANTERIOR CERVICAL FUSION CHOLECYSTECTOMY HAND/FINGER SURGERY UNLISTED Bilateral 3 L hand, 3 R hand METATARSAL OSTEOTOMY Right 08/14/2015 Surgeon: Luis Jones Jr., ESTHER; Location: [facility] OR [facility] TONSILLECTOMY Family History Problem Relation Age of [...] pulmonary disease) Obesity Coronary artery disease involving chick[place]ominy indian tribe coronary artery of chick[place]ominy indian tribe heart without angina pectoris Snores Cigarette smoker [...] further assistance. Kylee Montez MD, FACC, AMADOR Roller Leveler Division of Cardiovascular Medicine [facility] [employer] 2023-12-15 08:28:19 Associated Order(s): CONSULT CARDIOLOGY [facility] Cardiology Consult PCP: PATIENT DOES NOT HAVE A PCP Date of Service: 12/15/2023 CHIEF COMPLAINT/reason for consult: Heart failure HISTORY OF PRESENT ILLNESS This is a 53 years old female with past medical history of smoking, COPD, hypertension, obesity, nonobstructive coronary artery disease, systolic and diastolic heart failure, left ventricular thrombosis and pulm hypertension. She presented to [facility] emergency room with dyspnea, chest pain [...] (chronic obstructive pulmonary disease) Diverticulitis Epilepsy Hypertension ME (myocardial infarction) 07/20/2007 Slipped disc Stomach cancer Substance abuse Marijuana daily-for anxiety Past Surgical History: Procedure Laterality Date ANTERIOR CERVICAL FUSION CHOLECYSTECTOMY HAND/FINGER SURGERY UNLISTED Bilateral 3 L hand, 3 R hand METATARSAL OSTEOTOMY Right 08/14/2015 Surgeon: Luis Jones Jr., ESTHER; Location: [facility] TONSILLECTOMY Family History Problem Relation Age of [...] pain, unspecified type Coronary artery disease involving chickahom[place] indian tribe coronary artery of chickahominy indian tribe heart without angina pectoris Snores Cigarette smoker [...] further assistance. Kylee Montez MD, FACC, AMADOR Roller Leveler Division of Cardiovascular Medicine [facility] 2023-11-27 14:57:00 Associated Order(s): CONSULT ADULT PHYSICAL THERAPY 11/27/2023 Physical therapy note: Duplicate consult. Sami Loza. GAURI Teran, DPT,CMSR Sami Teran PT [facility] 2023-11-25 10:16:00 Associated Order(s): CONSULT ADULT [...] (chronic obstructive pulmonary disease) Diverticulitis Epilepsy Hypertension ME (myocardial infarction) 07/20/2007 Slipped disc Stomach cancer Substance abuse Marijuana daily-for anxiety PSH: Past Surgical History: Procedure Laterality Date ANTERIOR CERVICAL FUSION CHOLECYSTECTOMY HAND/FINGER SURGERY UNLISTED Bilateral 3 L hand, 3 R hand METATARSAL OSTEOTOMY Right 08/14/2015 Surgeon: Luis Jones Jr., DPM; [place] [facility] [place]LECTOMY Prior Living Situation: lives with her [...] -Pain Management: Nursing Notified COMMUNICATION Primary Language: Cymro Able to Verbalize needs: Yes Vision:good; no [...] Minutes: 30 min Sami Loza. JeffryPT, DPT,CMSR [facility] - Health History and Physical Notes Date/Time Note Provider Source 2024-01-09 22:04:15 [facility] Hospitalist Admission H&P Date of Service: 01/09/2024 CHIEF COMPLAINT: Patient with complaints of chest pain and a history of cardiomyopathy with left ventricular thrombus HISTORY OF PRESENT ILLNESS Heather Turner is a 53 year old female who presents with chest discomfort. Patient had extensive cardiac workup done recently at [facility]. At that time, patient was noted [...] a while. Patient recently started coming to [facility] as she had been going to [facility]. At this time, she will be [...] (chronic obstructive pulmonary disease) Diverticulitis Epilepsy Hypertension ME (myocardial infarction) 07/20/2007 Slipped disc Stomach cancer Substance abuse Marijuana daily-for anxiety Pseudoseizures PAST SURGICAL HISTORY Past Surgical History: Procedure Laterality Date ANTERIOR CERVICAL FUSION CHOLECYSTECTOMY HAND/FINGER SURGERY UNLISTED Bilateral 3 L hand, 3 R hand METATARSAL OSTEOTOMY Right 08/14/2015 Surgeon: Luis Jones Jr., DPM; Location: [facility] OR Location TONSILLECTOMY ALLERGIES Allergies [...] edema versus atypical pneumonia. RL: [id number] AFC: [id number] End of report CHEST 1 VW Narrative [...] high risk of morbidity and mortality. [place] RADIATION ONCOLOGY NURSE was verified during stay Darrick Altamirano MD [facility] 2023-12-14 22:42:40 MEDICINE [facility] ADMIT H&P Date of Service: 12/14/2023 CHIEF COMPLAINT: shortness of breath Subjective History of Present Illness 53 year old female with a PMH significant for HFrEF (15-20% on 11/22/23) w/ LV thrombus, RLE DVT, RLL segmental PE, HTN, smoker, COPD, chronic low back pain, depression presenting from [facility] ED due to chest heaviness [...] (chronic obstructive pulmonary disease) Diverticulitis Epilepsy Hypertension ME (myocardial infarction) 07/20/2007 Slipped disc Stomach cancer Substance abuse Marijuana daily-for anxiety Past Surgical History: Procedure Laterality Date ANTERIOR CERVICAL FUSION CHOLECYSTECTOMY HAND/FINGER SURGERY UNLISTED Bilateral 3 L hand, 3 R hand METATARSAL OSTEOTOMY Right 08/14/2015 Surgeon: Luis Jones Jr., DPNe; [place] [facility] [place]ILLECTOMY Family History Problem Relation Age of [...] On Eliquis Code Status: Full Code T [facility] EMERGENCY PHYSICIAN STAFF [facility] 2023-11-22 13:30:57 CCU Team Admit H&P [...] lumbar spinal stenosis, and depression presenting from [facility] ED due to SOB. Patient [...] (chronic obstructive pulmonary disease) Diverticulitis Epilepsy Hypertension ME (myocardial infarction) 07/20/2007 Slipped disc Stomach cancer Substance abuse Marijuana daily-for anxiety Prior to Admission medications Medication Sig Start Date End Date Taking? Authorizing Provider metoprolol succinate XL 25 mg 24 hr tablet Take 1 tablet by mouth every morning. 05/11/23 Yes Doctor Unassigned, [place] spironolactone 25 mg tablet Take 1 tablet by mouth in the morning and 1 tablet in the evening. 09/30/23 Yes Doctor Unassigned, [place] DULoxetine 30 mg capsule Take 1 capsule by mouth in the morning. Doctor Unassigned, [place] furosemide 20 mg tablet Take 1 tablet by mouth every morning and evening. Doctor Unassigned, [place] Lacosamide (VIMPAT) 100 mg tablet Take 1 [...] 8 (eight) hours as needed. Doctor Unassigned, [place] pantoprazole 40 mg EC tablet Take 40 mg by mouth daily. Doctor Unassigned, [place] amLODIPine (NORVASC) 10 mg tablet Take 1 Tab by mouth daily. 09/20/15 Kylee Montez MD carvedilol (COREG) 6.25 mg tablet Take 1 Tab by mouth 2 (two) times daily with meals. 09/20/15 Kylee Montez MD lisinopril (PRINIVIL,ZESTRIL) 40 mg tablet Take 1 Tab by mouth daily. 09/20/15 Kylee Montez MD loratadine (CLARITIN LIQUI-GEL) 10 mg capsule Take by mouth daily. Doctor Unassigned, [place] MULTIVITAMIN ORAL Take 1 Tab by mouth daily. Doctor Unassigned, [place] omega-3 fatty acids-vitamin E (FISH OIL) 1,000 mg capsule Take 1 g by mouth daily. Doctor Unassigned, [place] Allergies Allergen Reactions Green Tea Other - See comments Seizures Diclofenac Hypertension Keppra [Levetiracetam] Other - See comments Makes seizures worse Past surgical history: Past Surgical History: Procedure Laterality Date ANTERIOR CERVICAL FUSION CHOLECYSTECTOMY HAND/FINGER SURGERY UNLISTED Bilateral 3 L hand, 3 R hand METATARSAL OSTEOTOMY Right 08/14/2015 Surgeon: Luis Jones Jr., DPM; Location: [facility] TONSILLECTOMY Allergies: Allergies Allergen Reactions Green Tea [...] Friends and Family: Not on file Attends [employer]: Not on file Active Member of [...] Otherwise, Sonographically unremarkable right upper quadrant. RL: [id number] HS:Y CHEST PULMONARY ANGIOGRAM Result Date: 11/22/2023 1. Right lung lower lobe segmental pulmonary embolism. The patient is already on anticoagulation for lower extremity DVT. 2. Mild cardiomegaly. 3. Left adrenal nodule consider follow-up with elective contrast CT. XR SHOULDER 2+ VW RIGHT Result Date: 11/22/2023 Impression: 1. No acute osseous abnormality. 2. Chronic findings as detailed. RL: [id number] End of Report LOWER EXTREMITY VEIN WITH COMPRESSION BILATERAL (ONLY FOR RULE OUT DVT) Result Date: 11/22/2023 Impression: Nonocclusive thrombus in the right common femoral/greater saphenous vein. Critical Result: DVT Findings were discussed with nurse Merlyn Osullivan, who acknowledged receipt and understanding of the findings, at 11/22/2023 3:47 AM. RL: [id number] End of Report CHEST 1 VW Result Date: 11/21/2023 Impression: No consolidation or pleural effusion. No pneumothorax. RL: 0223 End of Report SSMENT/PLAN: Heather Turner is a 53 year old female admitted to the hospital with: Decompensated acute on chronic HFrEF 15-20% EF Cardiogenic shock NSTEMI Congestive hepatopathy Lactic acidosis LV thrombus HTN Iron deficiency anemia Patient in cardiogenic shock with lactic acidosis and congestive hepatopathy on milrinone and lasix. New LV thrombus identified on TTE, currently on heparin gtt. Negative [place] Criteria. Blood cultures NGTD. Received cefepime 1 [...] referrals and/or communicating with other health daycare manager (not separately reported), documenting clinical information in the electronic or other health record, and care coordination (not separately reported). 53 yo F with cardiogenic shock and PE Acute decompensated HFrEF NSTEMI Pulmonary embolism Polysubstance use LV thrombus COPD Elevated lactate- started on milrinone on 11/21 Continue milrinone Continue anticoagulation RHC/LHC today for BiV failure Cr Altamirano MD Product Transfer Pumper [facility] Cardiology 11/23/23 [facility] Health 2023-11-22 02:28:50 MEDICINE [place] H&P PCP: PATIENT DOES NOT HAVE A PCP Date of Service: 11/21/2023 CHIEF COMPLAINT: SOB History of Present Illness Heather Turner is a 53 year old female with a PMH significant for HFrEF (~35% 05/2023), HTN, Smoker, COPD, chronic low back pain, depression presenting from [facility] ED due to SOB. Pt states her home pulse ox was reading 86% and was having trouble catching her breath. Associated sx include PETERSON, orthopnea, CP that is substernal, pressure-like, and non radiating. She says the SOB started earlier today with productive cough. Denies fevers or chills. No recent sick contacts. States she was treated for pneumonia at [place] 2 weeks ago with levaquin and prednisone [...] (chronic obstructive pulmonary disease) Diverticulitis Epilepsy Hypertension ME (myocardial infarction) 07/20/2007 Slipped disc Stomach cancer Substance abuse Marijuana daily-for anxiety Past Surgical History: Procedure Laterality Date ANTERIOR CERVICAL FUSION CHOLECYSTECTOMY HAND/FINGER SURGERY UNLISTED Bilateral 3 L hand, 3 R hand METATARSAL OSTEOTOMY Right 08/14/2015 Surgeon: Luis Jones Jr., ESTHER; [place] [facility] [place]ILLECTOMY Family History Problem Relation Age of [...] Depakote - c/w flomax Pain UncontrolledTylenol and [place] Prophylaxis: DVT- heparin Stress Ulcer: pantoprazole Code [...] results to the patient. Ivis Mcdermott MD Product Transfer Pumper Department of Internal Medicine Division of Cardiovascular Disease [facility] Procedure Notes Date/Time Note Provider Source 2023-11-23 15:17:41 Left Heart Cath/Coronary Angiography Date of Service: 11/23/2023 3:18 PM Indication/Diagnosis: heart failure Consent source: self Consent type: indications/complications discussed with patient/legal guardian; written consent obtained Time out completed: yes Aseptic technique: Chlorprep Local Anesthesia: 1% lidocaine without epinephrine Sedation: fentanyl 50 mcg, Versed 2 mg Access site: right radial artery, RIJ Hudson 4.0 5fr 8 Fr IJ sheath [place]ba Closure Method: TR Band, manual pressure [...] was present for the entire procedure. [facility] Associated attestation - Cris Molina MD - [...] of right sided failure. Cris Molina MD drama professor. Division of cardiovascular medicine [facility] IM-CARDIOVASCULAR DISEASE [facility] - Health Notes Date/Time Note Provider Source 2024-04-03 00:54:53 [...] in no apparent distress, Alma Gould RN [facility] 2024-04-03 00:10:43 Report to Campbell CAMPOS. Ely Hernández RN [facility] 2024-04-02 22:25:58 Pt having seizure like activity as I walked in pt. Activity lasting about 40 seconds. Pt alert and able to answer questions immediately after activity. Yesenia Hightower RN [facility] 2024-04-02 20:44:51 Pt arrived via person WC with complaints of feeling like her heart failure was acting up and her pulse ox machine was reading 94% and Hr 61 at home which is low for her. Pt states she has had 6 seizures today. Was seen at [facility] and reports no test were performed [...] meds for a month d/t financial issues. 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 Mireille Cardenas RN [facility] 2024-01-12 21:59:00 Associated Order(s): EKG-12 Lead ONCE Pre-Procedure Diagnose(s): Chest pain, unspecified type Post-Procedure Diagnose(s): Chest pain, unspecified type [facility] Emergency Department Note Patient Name: Heather Turner Date of : 1970 53 year old female Treatment Room: TX1/TX1 Primary Care Physician: Lb Lieberman Patient Escorted by: Family [5] Mode of Arrival: Personal means [1] EMS Treatment Prior to ED Arrival: WORKDAY MANAGER treatment comments: prescription meds Travel and Exposure [...] (chronic obstructive pulmonary disease) Diverticulitis Epilepsy Hypertension ME (myocardial infarction) 07/20/2007 Slipped disc Stomach cancer [...] OSTEOTOMY Right 08/14/2015 Surgeon: Luis Jones Jr., JOHANN; Location: [facility] [place] [facility] TONSILLECTOMY Review of Systems: Review of Systems [...] 0.01 - 0.07 10*3/uL COMP. METABOLIC PANEL (77833) - Abnormal NA 140 135 - 145 [...] VW Cbc with Diff Comp. Metabolic Panel (39571) Troponin I Orders Placed This Encounter Medications [...] ED Physician in the absence of a head sulfide operator: yes Previous ECG: Previous ECG: Unavailable Interpretation: [...] Electronically signed by: Radha Wyatt MD 01/12/24 2342 [facility] 2024-01-12 16:22:00 TRANSITIONAL CARE MANAGEMENT ASSESSMENT 01/12/2024 Heather Turner [id number] Heather Turner is a 53 year old /White female was admitted on 01/09/24 to [facility] ICU. She was discharged on 01/10/24 with discharge disposition of HR- Routine Discharge. Admitting Physician: Darrick Altamirano Discharge Diagnosis: Hypotension No linked episodes TCM Und-tsbi-mq-face outreach documentation: Care Transition CM made f/u call to pt post-discharge x2. No response and call went to voicemail. CM left a discreet message with purpose of call and CM's call back information. Discharge Assessment Chart Assessed: 01/12/24 TCM Outreach Completed: 01/12/24 Future Appointments: Veronique Carrillo RN [facility] 2024-01-12 11:40:32 Care Transition CM made f/u call to pt post-discharge. No response and call went to voicemail. CM left a discreet message with purpose of call and CM's call back information. Veronique Carrillo RN, BSN Property Maintenance Technician-Transitions of Care [phone] [facility] 2024-01-10 15:32:40 Problem: Discharge Planning Goal: [...] Outcome: Adequate for discharge Addis Bates RN [facility] 2024-01-10 15:32:28 Problem: Discharge Planning Goal: [...] in pain sensation Outcome: Adequate for discharge [facility] 2024-01-10 14:55:21 Problem: Discharge Planning Goal: [...] Outcome: Adequate for discharge Wayne Merrill RN [facility] 2024-01-10 01:16:51 Problem: Discharge Planning Goal: [...] Outcome: Progressing as expected Alexandria Walsh RN [facility] 2024-01-09 22:42:54 Patient admitted to IMU for diagnosis of pneumonia, elevated D-dimer, hypotension, chest pain. Patient agrees to admission, discussed plan of care with patient and family. Patient is awake, alert, oriented, resp reg unlabored, color appropriate for race, PIV intact x2. No adverse reaction to medications administered while in ED. Belongings with patient to unit. Report to BETH Reyez. [facility] 2024-01-09 22:35:43 Report given to BETH Reyez IMU [facility] 2024-01-09 20:04:51 Patent resting Sheri Harding RN [facility] 2024-01-09 16:09:08 Patient states: "I started having chest pain this morning" Reports history of ME, blood clots in heart, lung and legs, CHF. Malinda Andres RN [facility] 2024-01-09 16:07:00 Associated Order(s): EKG-12 Lead ROUTINE ONCE Pre-Procedure Diagnose(s): Chest pain, unspecified type Post-Procedure Diagnose(s): Chest pain, unspecified type [facility] Emergency Department Note Patient Name: Heather Turner Date of : 1970 53 year old female Treatment Room: AZ2/AZ2 Primary Care Physician: Lb Lieberman Patient Escorted [...] SOB that started this morning. Hx of ME, PE and CHF. She rated her pain [...] vomiting or diarrhea. 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 used: No Past Medical History/Immunizations: Past Medical History: Diagnosis Date Anxiety Extreme Bipolar disorder Breast pain 09/18/2015 Cauda equina compression 11/21/2023 diagnosed 08/2023 Congestive heart failure 2021 COPD (chronic obstructive pulmonary disease) Diverticulitis Epilepsy Hypertension ME (myocardial infarction) 07/20/2007 Slipped disc Stomach cancer [...] OSTEOTOMY Right 08/14/2015 Surgeon: Luis Jones Jr., ESTHRE; Location: [facility] TONSILLECTOMY Review of Systems: Review of Systems [...] TROPONIN I N-TERMINAL PRO-BNP COMP. METABOLIC PANEL (09034) D-DIMER Orders Placed This Encounter Medications aspirin tablet 325 mg morpHINE (4 mg/mL) injection 4 mg ondansetron (ZOFRAN (PF)) injection 4 mg First Provider Eval: ED Events Date/Time Event User Comments 01/09/24 160 Medical Screening Begins OLENA DEL CASTILLO NP O -- 01/09/241608 First Provider Evaluation OLENA DEL CASTILLO NP O -- ED COURSE Labs, chest x-ray, ECG, Aspirin, Zofran, Fentanyl, CT chest ED Course as of 01/09/242115 Sat Jan 09, 20242003 Patient hand off to Lorelei HURST [JA] 181 Impression: No consolidation or pleural effusion. No pneumothorax. [JA] 1729 D DIMER(!): 0.87 [JA] ED Course User [...] ED Physician in the absence of a head sulfide operator: yes Previous ECG: Previous ECG: Compared to [...] SOB that started this morning. Hx of ME, PE and CHF. She rated her pain an 8 on a scale of 0 to 10 and described it as sharp. DDX: ACS CARDIAC ARRHYTHMIAS DEHYDRATION ELECTROLYTE ABNORMALITY PULMONARY EDEMA CHF EXACERBATION COPD PLEURAL EFFUSION PNEUMOTHORAX PE BRONCHITIS PNEUMONIA VIRAL SYNDROME LUNG MALIGNANCY Medical Decision Making Heather Turnre is a 53 year old female who present to the ED with chest pain with SOB that started this morning. Hx of ME, PE and CHF. She rated her pain [...] and patient evaluation by RUBY Berman MD, [facility] Emergency Medicine [facility] 2023-12-17 10:18:53 Care Transitions Nurse TOMI made f/u call to patient post-discharge. No answer, call went to voicemail. CM left discreet message with CM's call back information. CM will try again at a later time. MANSOOR Lindsey, RN, CCRN Property Maintenance Technician, Transitions of Care [email or web address] Jodi Berg RN [facility] 2023-12-15 10:45:32 Problem: Respiratory Function - [...] Goal: Effective communication Outcome: Adequate for discharge T Delaney Laird RN [facility] 2023-12-15 05:41:00 Problem: Respiratory Function - Impaired Goal: Able to cough effectively 12/15/2023 0641 by Annette Mota RN Outcome: Progressing as expected 12/15/2023 0640 by Annette Mota RN Outcome: Progressing as expected Goal: Adequate oxygenation 12/15/2023640 by Annette Mota RN Outcome: Progressing as expected 12/15/2023 06 by Annette Mota RN Outcome: Progressing as expected Goal: Patent airway 12/15/2023 06 by Annette Mota RN Outcome: Progressing as expected 12/15/2023 06 by Annette Mota RN Outcome: Progressing as expected Problem: Pain Goal: Control of pain at or below patient's documented comfort goal Outcome: Progressing as expected Goal: Reduction in pain sensation Outcome: Progressing as expected Problem: Discharge Planning Goal: Adequate for discharge Outcome: Progressing as expected Goal: Effective communication Outcome: Progressing as expected [facility] 2023-12-14 18:20:42 Patient admitted to [facility] ADC 2215 for diagnosis of shortness of breath. Patient agrees to admission, discussed plan of care with patient and family. Patient is awake, A&Ox4, RR even and unlabored on RA. Color appropriate for race. PIV intact x1. No adverse reaction to medications administered while in ED. Belongings with patient to unit. [facility] 2023-12-14 18:19:06 Nurse Report Report given to BETH Romero. Chief complaint, assessment findings, infusion verify and orders reviewed. Plan of care discussed with patient and both nurses. Patient/family members verbalized understanding. Lisette Murphy RN [facility] 2023-12-14 14:54:55 Report given to Amy Murphy RN. Updated on patient's medical condition, history of present condition and plan of care. Leo Hyde RN [facility] 2023-12-14 13:30:46 Patient arrived in wheelchair with c/o shortness of breath starting this morning. Patient attempted to try her albuterol at home with no success. Patient attempt to feel better with husbands oxygen. Started to complaining of reproducible chest pain approximately 2 hours ago. Hx: CHF Lisette Murphy RN [facility] 2023-12-14 13:24:00 AdmissionCare Guideline: Chest Pain [...] care. AdmissionCare documentation entered by: Mj Bryan [facility] [employer], edition, Copyright ? 2022 [facility] [employer] [facility] All Rights Reserved. [id number]:00 T [facility] 2023-12-03 18:26:32 Pt requesting to leave AMA, patient educated on risks, and benefits of leaving AMA. Patient continues to request to leave AMA. CCU notified of patients request. Patient educated on risk and benefits. AMA paperwork signed by patient. Duong Tello RN [facility] 2023-12-03 14:42:13 Problem: Respiratory Function - Impaired Goal: Adequate oxygenation Outcome: Progressing as expected Goal: Adequate work of breathing Outcome: Progressing as expected Problem: Falls, Risk of Goal: Absence of falls Outcome: Progressing as expected T [facility] 2023-12-02 17:16:35 Report to Rad with [facility], care transferred T Sheri Tompkins RN [facility] 2023-12-02 16:47:06 Nurse Report Report given to Duong CAMPOS at [facility], Chief complaint, assessment findings, infusion verify and orders reviewed. Sheri Tompkins RN T [facility] 2023-12-02 16:40:00 Pt tolerating bipap, updated on status, skinw/d [facility] 2023-12-02 16:09:00 Placed on bedpan T [facility] 2023-12-02 16:08:24 Report to Turner CAMPOS. Ely Hernández RN [facility] 2023-12-02 13:01:55 Pt arrived via private car with c/o chest pain starting about 30 minutes architectural project captain. Selina Llanes RN [facility] 2023-12-02 12:56:00 Associated Order(s): EKG-12 Lead ROUTINE ONCE Pre-Procedure Diagnose(s): Other chest pain Post-Procedure Diagnose(s): Other chest pain [facility] Emergency Department Note Patient Name: Heather Turner Date of : 1970 53 year old female Treatment Room: [facility] Primary Care Physician: PATIENT DOES NOT HAVE A PCP Patient Escorted by: Family [5] Mode of Arrival: Personal means [1] EMS Treatment Prior to ED Arrival: WORKDAY MANAGER treatment: Medication (comment) WORKDAY MANAGER treatment comments: tylenol PM X2 at 0830, [...] began today. PT was recently admitted to [facility] ICU for PE, chf and cardiogenic [...] (chronic obstructive pulmonary disease) Diverticulitis Epilepsy Hypertension ME (myocardial infarction) 07/20/2007 Slipped disc Stomach cancer [...] 08/14/2015 Surgeon: Luis Jones Jr., DPM; Location: [facility] TONSILLECTOMY Review of Systems: Review of Systems [...] 0.01 - 0.07 10*3/uL COMP. METABOLIC PANEL (60349) - Abnormal NA 138 135 - 145 [...] VW Cbc with Diff Comp. Metabolic Panel (51552) Troponin I N-Terminal Pro-Bnp BLOOD CULTURE SCREEN [...] interpretation with external provider(s): Dr. Simental of [facility] cardiology accepting to CCU. Risk Prescription [...] signed by: Connor Renee MD 12/02/23 1632 [facility] 2023-12-01 10:36:39 TRANSITIONAL CARE MANAGEMENT ASSESSMENT 12/01/2023 Heather Turner [id number] Heather Turner is a 53 year old /White female was admitted on 11/21/[address] She was discharged on 11/28/23 with discharge disposition of HR- Routine Discharge. Admitting Physician: Cr Altamirano Discharge Diagnosis: Decompensated acute on chronic HFrEF 15-20% EF Cardiogenic shock NSTEMI 2/2 stress induced cardiomyopathy 2/2 PE and drug use No linked episodes TCM Yfa-pfvu-md-face outreach documentation: Discharge Assessment Chart Assessed: 12/01/23 TCM Outreach Completed: 12/01/23 Do you have a few minutes to speak with me about how you are doing at home?: Yes (Paitent stated she feel ok) Discharge Instructions Do you understand your at-home instructions?: Yes Medications Have you filled your prescriptions and do you have them in your home? : No Medication Interventions?: (Patient stated she cannot afford the cost of $44. 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 to general farm manager .) Do you know how to take your medications?: Yes Supplies Did you receive applicable home medical supplies/equipment?: N/A Follow Up Appointment Has a follow up appointment been scheduled?: No May I assist with scheduling this appointment?: Patient has outside PCP (Patient stated she was told that her providers at at [facility] and will not be following [facility]) Do you have any questions [...] stated she has to follow up with [facility] clinics Do you understand your discharge instructions? [...] activity): as tolerated Were you able to curing pickling packer all of your medications? No unable [...] N/A Ensure they have contact info for [place]: na Have you received your DME? N/A [...] to the emergency room Madeline Mckinley RN [facility] 2023-11-30 10:41:04 TRANSITIONAL CARE MANAGEMENT ASSESSMENT 11/30/2023 Heather Turner [id number] Heather Turner is a 53 year old /White female was admitted on 11/21/[address] She was discharged on 11/28/23 with discharge disposition of HR- Routine Discharge. Admitting Physician: Cr Altamirano Discharge Diagnosis: Decompensated acute on chronic HFrEF 15-20% EF Cardiogenic shock NSTEMI 2/2 stress induced cardiomyopathy 2/2 PE and drug use No linked episodes TCM Dsx-ciwg-xa-face outreach documentation: Transition CM attempted to contact patient for post discharge follow up. CM left a message with male friend contact as he stated patient was asleep and not available. Future Appointments: Madeline Mckinley RN [facility] 2023-11-28 15:39:19 Problem: Bleeding, Risk of [...] Outcome: Adequate for discharge Aliyah Francisco RN [facility] 2023-11-27 14:00:02 Problem: Discharge Planning Goal: Adequate for discharge 11/27/2023 1359 by Merlyn Ndiaye RN Outcome: Progressing as expected 11/27/2023 09 by Merlyn Ndiaye RN Outcome: Progressing as expected Problem: Bleeding, Risk of Goal: Absence of impaired coagulation signs and symptoms 11/27/2023 1359 by Merlyn Ndiaye RN Outcome: Progressing as expected 11/27/2023 0951 by Merlyn Ndiaye RN Outcome: Progressing as expected Goal: Absence of active bleeding 11/27/2023 1359 by Merlyn Ndiaye, BETH Outcome: Progressing as expected 11/27/2023 0951 by Merlyn Ndiaye RN Outcome: Progressing as expected Problem: Activity Intolerance Goal: Improved activity tolerance 11/27/2023 1359 by Merlyn Ndiaye, BETH Outcome: Progressing as expected 11/27/2023 09 by Merlyn Ndiaye RN Outcome: Progressing as [...] Merlyn Ndiaye RN Outcome: Progressing as expected T Merlyn Ndiaye RN [facility] [employer] 2023-11-27 09:51:54 Problem: Bleeding, Risk of Goal: [...] new skin breakdown Outcome: Progressing as expected [facility] [employer] 2023-11-27 05:16:42 Problem: Bleeding, Risk of Goal: [...] Progressing as expected T Mariely Wallace RN [facility] 2023-11-25 17:12:17 Problem: Bleeding, Risk of [...] new skin breakdown Outcome: Progressing as expected [facility] 2023-11-25 05:27:41 Problem: Bleeding, Risk [...] Outcome: Progressing as expected Luda Vee RN [facility] 2023-11-24 18:52:11 Summary: [facility] [place] Note Spoke with Rich Spencer from [facility] [place] at 18:12. Case #[id number]. Brice Jackson RN [facility] 2023-11-24 10:16:03 Problem: Bleeding, Risk of [...] new skin breakdown Outcome: Progressing as expected [facility] 2023-11-23 10:41:53 Problem: Bleeding, Risk of Goal: [...] Brice Jackson RN Outcome: Progressing as expected [facility] 2023-11-23 10:40:04 Problem: Bleeding, Risk of Goal: [...] new skin breakdown Outcome: Progressing as expected [facility] 2023-11-22 05:54:04 Problem: Bleeding, Risk of [...] Outcome: Progressing as expected Hamlet Osullivan RN [facility] 2023-11-21 23:58:07 Patient transferred to [place] for diagnosis of chest pain, NSTEMI, COPD exacerbation Patient agrees to transfer/admit plan and verbalized understanding of plan of care, family aware of plan Patient awake alert, oriented, resp reg unlabored, skin w/d PIV patent, no s/s infiltration noted, heparin infusing No adverse reaction to medications given while in ED. Report given to [facility] personnel Nery Orellana RN [facility] 2023-11-21 23:55:09 Nurse Report Report given to BETH Zuleta in [place]. Chief complaint, assessment findings, infusion verify and orders reviewed. Plan of care discussed with nurse. Nery Orellana RN [facility] 2023-11-21 23:18:14 Associated Order(s): Critical Care [...] separately billable procedures and treating other patients. [facility] 2023-11-21 23:11:13 Pt c/o difficulty breathing at this time. Pt placed on 2L O2 NC for comfort. [facility] P[facility]rez Diehl [facility] 2023-11-21 21:15:59 Summary: Triage CC: patient [...] Appears in mild distress Alma Gould RN [facility] 2023-11-21 21:07:00 EMERGENCY DEPARTMENT ENCOUNTER [facility] Patient Name: Heather Turner Date of : 1970 53 year old Exam Room:AZ2/AZ2 Primary Care Physician: PATIENT DOES NOT HAVE A PCP Pre- Hospital Patient Escorted by: Family [5] Mode of Arrival: Personal means [1] EMS Treatment Prior to ED Arrival: WORKDAY MANAGER treatment: None ED Events Date/Time Event User [...] (chronic obstructive pulmonary disease) Diverticulitis Epilepsy Hypertension ME (myocardial infarction) 07/20/2007 Slipped disc Stomach cancer Substance abuse Marijuana daily-for anxiety Tetanus received in last 5 years: Unknown Childhood immunizations: Up-to-date Past Surgical History Past Surgical History: Procedure Laterality Date ANTERIOR CERVICAL FUSION CHOLECYSTECTOMY HAND/FINGER SURGERY UNLISTED Bilateral 3 L hand, 3 R hand METATARSAL OSTEOTOMY Right 08/14/2015 Surgeon: Luis Jones Jr., ESTHER; Location: [facility] TONSILLECTOMY Allergies Allergies Allergen Reactions Green Tea [...] PLT ESTIMATE Normal Normal COMP. METABOLIC PANEL (27034) - Abnormal NA 134 (*) 135 - [...] consolidation or pleural effusion. No pneumothorax. RL: 2823 End of Report Orders and Treatments Orders Placed This Encounter Procedures Critical Care XR CHEST 1 VW CBC WITH DIFF COMP. METABOLIC PANEL (78104) AMYLASE TROPONIN I N-TERMINAL PRO-BNP URINALYSIS URINE [...] in 0.45 % NS Procedures EKG Time 6 Rate 127 Sinus tachycardia Right axis No [...] exacerbation. She will be transferred down to [place] to the [place] team in the cardiology department for further [...] on file Megan Rondon Jr., MD Clinical Product Transfer Pumper [facility] Emergency Department [employer] is used frequently and may produce errors. Promptly contact for obvious discrepancies. Megan Rondon MD 11/21/232321 T [facility] 2023-09-11 11:34:02 Chief Complaint Patient presents with Follow-up Hospitalization Krissy Cannon LVN [facility] 2023-08-12 16:08:34 Bryan spoke to patient and patient decided to leave AMA. AMA form signed by patient and attached to paperwork. Patient in stable condition with AMA. IV line removed and patient was assisted onto wheelchair and moved to the lobby. Patient called her prior to leaving room and will be picking up patient. ME Dumont RN [facility] 2023-08-12 15:56:21 Patient requesting to talk to provider - provider aware. Patient refused tylenol as she said medication does not improve her condition and she does not want to throw it up. Patient also refusing blood draw at this time. [facility] 2023-08-12 14:50:00 Patient's name and verified with [...] (chronic obstructive pulmonary disease) Diverticulitis Epilepsy Hypertension ME (myocardial infarction) 07/20/2007 Slipped disc Stomach cancer Substance abuse Marijuana daily-for anxiety Allergies noted in chart. Vitals obtained. Assessment performed. IV in place and patent. Placed on continuous spo2/cardiac monitoring, HR 106 Bed low and locked, secured with two rails, call light within reach. Belongings at bedside. Patient aware of plan of care. Steph Dumont RN [facility] 2023-08-12 14:17:22 Patient had witnessed seizure like activity. Bryan, at bedside. Patient stopped seizure activity and had no postictal phase. Patient coherent, alert and oriented/answering all questions appropriately. 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 Patient had seizure like activity in the vehicle while attempting to get patient out of the car, patient had no post ictal phase. Patient c/o substernal chest pain and jaw pain. 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 METABOLIC PANEL (56668) - Abnormal NA 140 135 - 145 [...] Procedures Cbc with Diff Comp. Metabolic Panel (62398) Urinalysis Lactic Acid Whole Blood Troponin I Orders Placed This Encounter Medications lacosamide (VIMPAT) 100 mg in NaCl 0.9% (NS) 50 mL piggyback acetaminophen (TYLENOL) tablet 1,000 mg First Provider Eval: ED Events Date/Time Event User Comments 08/12/23 134 Medical Screening Begins MJ BRYAN -- 08/12/23 134 First Provider Evaluation MJ BRYAN -- ED [...] for follow-up Yehuda Arcos MD Specialty: PN-NEUROLOGY [facility] [address] [place] [id number] [facility]-Emergency Department Specialty: Emergency Medicine [address] [place] [id number] Instructions: If symptoms worsen as documented in the discharge Electronically signed by: Mj Bryan DO 08/12/23 1605 Mj Bryan DO 08/12/23 1605 [facility]
[2024-05-27] MEDS ORDERED: LORazepam 2 MG/ML VIAL ONE (13:01)
[2024-05-27 13:19] LABS: Absolute Basophils 0.1 K/uL (0-0.5); Absolute Eosinophils 0.1 K/uL (0-0.5); Absolute Lymphocytes (CBC) 1.8 K/uL (0.7-4.9); Absolute Monocytes 0.5 K/uL (0.1-1.3); Absolute Neutrophil 5.3 K/uL (1.8-8.0); Basophils % 1.3 % (0-1.3); Eosinophils % 1.4 % (0-4.4); Hematocrit 37.6 % (36.0-45.0); Hemoglobin 11.8 g/dL (12.0-15.0); MCH 26.1 pg (27.0-35.0); MCHC 31.5 g/dL (32.0-36.0); MPV 6.2 fL (7.6-11.3); Monocytes % 6.4 % (3.3-12.3); Neutrophils % 67.9 % (41.7-73.7); Platelets 380 thou/uL (152-406); RBC Red Blood Cell Count 4.53 M/uL (3.86-4.86); Red Cell Distribution Width 22.9 % (12.1-15.2)
[2024-05-27 13:39] LABS: Albumin 2.9 g/dL (3.4-5.0); Albumin/Globulin Ratio 0.8 (1.1-1.8); Alkaline Phosphatase 104 U/L (45-117); Anion Gap 11.1 mEq/L (5.0-15.0); BUN Blood Urea Nitrogen 8 mg/dL (7-18); Bicarbonate 23 mEq/L (21-32); Bilirubin Total 0.5 mg/dL (0.2-1.0); Globulin 3.8 g/dL (2.3-3.5); Glomerular Filtration Rate 101 ml/min (=/>90); Glucose Level 115 mg/dL (74-106); Potassium 4.1 mEq/L (3.5-5.1); Protein, Total 6.7 g/dL (6.4-8.2); Sodium Level 139 mEq/L (136-145); Troponin High Sensitivity 8.2 pg/mL (<58.9)
[2024-05-27 13:40] LABS: ALT/SGPT < 14 U/L (13-56); AST/SGOT < 10 U/L (15-37); Bilirubin Direct < 0.2 mg/dL (0-0.2); Bilirubin Indirect, Calculated 0.3 mg/dL (0.2-0.8)
[2024-05-27] MEDS ORDERED: ALBUTEROL 2.5 MG/3 ML NEB SOL ONE (13:57)
[2024-05-27] MEDS ORDERED: IPRATROPIUM BROM 0.5MG/2.5ML ONE (13:57)
[2024-05-27] MEDS ORDERED: KETOROLAC 30 MG/ML INJ ONE (13:57)
--- NOTE | 2024-05-27 14:01 | RAD REPORT ---
Procedure: Chest Single View HISTORY: Chest pain COMPARISON: April 2024 FINDINGS: The lungs appear clear of acute infiltrate. No significant pleural effusion noted. The heart is normal size. IMPRESSION: No acute abnormality is displayed.
[2024-05-27 14:30] LABS: Anisocytosis 2+; Blood Morphology Comment NOTED (NOT SEEN); Platelet Estimate ADEQ; White Blood Cell Scan OK (OK)
[2024-05-27] MEDS ORDERED: NA CHLORIDE 0.9% 100 ML ONE (15:23)
[2024-05-27] MEDS ORDERED: METHOCARBAMOL 1,000 MG/10 ML VIAL ONE (15:23)
--- NOTE | 2024-05-27 16:51 | RAD REPORT ---
EXAMINATION: US bilateral LOWER EXTREMITY VENOUS DOPPLER CLINICAL INDICATION: Elevated d-dimer TECHNIQUE: Sonographic evaluation of the veins of the lower extremity bilaterally formed.Grayscale, c olor and spectral analysis performed on all vessels COMPARISON: 2022 FINDINGS: The common femoral, superficial femoral, greater saphenous, popliteal and posterior tibial veins bila terally are compressible and demonstrate augmentation. Doppler demonstrates good flow. IMPRESSION: No evidence of deep venous thrombosis involving either lower extremity
--- NOTE | 2024-05-27 18:04 | RAD REPORT ---
EXAMINATION: CTA CHEST PE CLINICAL INDICATION: Chest pain TECHNIQUE: 100 cc 370 Isovue administered intravenously. This examination was performed according to an angiographic protocol with 3D post-processing. This involves 3D reconstructions, MIPs, volume rendered images and/or shaded surface rendering. One or more of the following dose reduction techniqu es were used: Automated exposure control, adjustment of the mA and/or kV according to patient size, and/or iterative reconstruction. Unless otherwise specified, incidental findings do not require dedic ated imaging follow-up. [id number]. COMPARISON: 2022 and November 2023 FINDINGS: A pulmonary embolus is not seen. An aortic aneurysm not noted. No pleural effusion. No pericardial effusion. Mild COPD. Calcified granulomas. Multiple, tiny lung nodules have decreased in size from prior exams. IMPRESSION: No evidence of a pulmonary embolism
--- NOTE | 2024-05-27 18:15 | EDPHYS ---
Physician Documentation [facility] Name: Heather Coon Age: 54 yrs Sex: Female : 1970 Arrival Date: 05/27/2024 Time: 12:39 Bed 2 Private MD: ED Physician Gus Canela HPI: 05/27 13:24 This 54 yrs old Female presents to ER via EMS with complaints of Chest Pain. rt 13:24 Patient presents to the ED with chest pain starting today. Per EMS report, patient had rt 2 brief seizures In the ambulance. denies other acute complaints at this time, symptoms are moderate in severity, no other aggravating or alleviating factors. . 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 N/A - control method, Not tl4 Historical: - Allergies: 13:27 fluoxetine; tl4 13:27 Green Tea; tl4 13:27 Keppra; not an allergy; tl4 - Home Meds: 13:27 Metoprolol Tartrate Oral [Active]; lisinopril Oral [Active]; Depakote 500 mg Oral tl4 tablet 1 tab 2 times per day [Active]; Lasix Oral [Active]; clomiphene citrate oral [Active]; Folic Acid Oral [Active]; - PMHx: 13:27 Anxiety; Arthritis; Bipolar disorder; Cancer-Cervical; Chronic obstructive lung tl4 disease; Chronic pain; Congestive heart failure; Depression; Diverticulitis; Herniated Back Disc; Hypertension; intestinal mass; Myocardial infarction; pt reports hx of seizures; Spastic Muscles; stroke; - PSHx: 13:27 back surgery; cervical fusion; Cholecystectomy; foot; Tonsillectomy; tl4 - Immunization history:: Adult Immunizations unknown. - Infectious Disease History:: Denies. - Social history:: Smoking status: Patient reports the use of cigarette tobacco products, smokes one-half pack cigarettes per day, Patient/guardian denies using alcohol, street drugs, pt states she quit ETOH and cocaine 1 month ago. ROS: 13:24 Constitutional: Negative for fever, chills, and weight loss, Respiratory: Negative for rt shortness of breath, cough, wheezing, and pleuritic chest pain, Abdomen/GI: Negative for abdominal pain, nausea, vomiting, diarrhea, and constipation, 13:24 Cardiovascular: Positive for chest pain, Negative for edema, 13:24 Neuro: Positive for seizure activity, Exam: 13:24 Constitutional: This is a well developed, well nourished patient who is awake, alert, rt and in no acute distress. Head/Face: Normocephalic, atraumatic. Chest/axilla: Normal chest wall appearance and motion. Nontender with no deformity. No lesions are appreciated. Cardiovascular: Regular rate and rhythm with a normal S1 and S2. No gallops, murmurs, or rubs. Normal PMI, no JVD. No pulse deficits. Respiratory: Lungs have equal breath sounds bilaterally, clear to auscultation and percussion. No rales, rhonchi or wheezes noted. No increased work of breathing, no retractions or nasal flaring. Abdomen/GI: Soft, non-tender, with normal bowel sounds. No distension or tympany. No guarding or rebound. No evidence of tenderness throughout. Skin: Warm, dry with normal turgor. Normal color with no rashes, no lesions, and no evidence of cellulitis. MS/ Extremity: Pulses equal, no cyanosis. Neurovascular intact. Full, normal range of motion. Neuro: Awake and alert, GCS 15, oriented to person, place, time, and situation. Cranial nerves II-XII grossly intact. Motor strength 5/5 in all extremities. Sensory grossly intact. Cerebellar exam normal. Normal gait. 13:24 ECG was reviewed by the Attending Physician. Vital Signs: 12:48 BP 123 / 79; Pulse 83; Resp 14; Temp 98.3(O); Pulse Ox 100% on R/A; Weight 99.79 kg; tl4 Height 5 ft. 2 in. ; Pain 10/10; 13:42 BP 127 / 95; Pulse 87; Pulse Ox 98% on R/A; MAP 103 mmHg; Pain 10/10; tm6 14:36 BP 115 / 83; Pulse 84; Pulse Ox 98% on R/A; MAP 95 mmHg; Pain 10/10; tm6 15:29 BP 149 / 79; Pulse 84; Pulse Ox 100% on R/A; MAP 101 mmHg; Pain 10/10; tm6 16:25 BP 163 / 71; Pulse 70; Pulse Ox 100% on R/A; MAP 85 mmHg; tm6 12:48 Body Mass Index 40.24 (99.79 kg, 157.48 cm) tl4 12:48 Pain Scale: Adult tl4 13:42 Pain Scale: Adult tm6 14:36 Pain Scale: Adult tm6 15:29 Pain Scale: Adult tm6 MDM: 13:01 Medical Screening Exam initiated rt 19:19 Differential diagnosis: Nonspecific chest pain, CAD, pulmonary embolus. HEART Score: rt History: Slightly Suspicious (0), ECG: Normal (0), Age: > 45 and < 65 years (1), Risk Factors: > or = 3 Risk factors for atherosclerotic disease (2), Troponin: < or = 1 x Normal Limit (0), Total Score = 2. Data reviewed: vital signs, nurses notes, lab test result(s), EKG, radiologic studies. Consideration of Admission/Observation Escalation of care including admission/observation considered. Patient with chronic chest pain, recent unremarkable heart catheterization about a year ago, has 2 negative troponins. Low suspicion for acute coronary syndrome, do not believe she requires admission at this time. CT angiogram is negative for pulmonary embolus, there is no DVT. Will restart the patient on her outpatient Eliquis. Patient is asking for narcotic pain medications multiple times. I do not believe that these are indicated at this juncture. Patient was instructed to follow-up as an outpatient.. I considered the following discharge prescriptions or medication management in the emergency department Medications were administered in the Emergency Department. See MAR. Independent interpretation of the following test(s) in the Emergency Department X-Ray: My interpretation is No infiltrate seen on my interpretation of x-ray images. Counseling: I had a detailed discussion with the patient and/or guardian regarding the historical points, exam findings, and any diagnostic results supporting the discharge/admit diagnosis, lab results, radiology results, the need for outpatient follow up. 05/27 13:01 Order name: Basic Metabolic Panel; Complete Time: 14:08 rt 11 13:01 Order name: CBC with Diff; Complete Time: 14:31 rt 11 13:01 Order name: LFT's; Complete Time: 14:08 rt 11 13:01 Order name: Magnesium; Complete Time: 14:08 rt 11 13:01 Order name: Troponin HS; Complete Time: 14:08 rt 11 13:01 Order name: ETOH Level; Complete Time: 14:08 rt 05/27 13:23 Order name: CBC Smear Scan; Complete Time: 14:31 EDMS 11/ 15:21 Order name: D-Dimer; Complete Time: 15:59 rt 11 15:21 Order name: Troponin High Sensitivity; Complete Time: 15:59 rt 05/27 13:01 Order name: XRAY Chest (1 view); Complete Time: 14:08 rt 05/27 16:00 Order name: CT Chest For PE Angio; Complete Time: 18:13 rt 05/27 16:00 Order name: Extrem Venous W Compression Yuriy US; Complete Time: 16:52 rt 05/27 13:01 Order name: EKG; Complete Time: 13:02 rt 05/27 13:01 Order name: Cardiac monitoring; Complete Time: 13:07 rt 05/27 13:01 Order name: EKG - Nurse/Tech; Complete Time: 13:07 rt 05/27 13:01 Order name: IV Saline Lock; Complete Time: 13:07 rt 05/27 13:01 Order name: Labs collected and sent; Complete Time: 13:34 rt 05/27 13:01 Order name: O2 Per Protocol; Complete Time: 13:07 rt 05/27 13:01 Order name: O2 Sat Monitoring; Complete Time: 13:08 rt EC:24 Rate is 82 beats/min. Rhythm is regular, Normal Sinus Rhythm with No ectopy. QRS [place] rt is Normal. VA interval is normal. QRS interval is normal. QT interval is normal. No Q waves. No ST changes noted. Interpreted by me. Administered Medications: 13:07 Drug: Ativan IVP 1 mg IVP once Route: IVP; Site: left wrist; tm6 13:34 Follow up: Response: No adverse reaction tl4 14:05 Drug: Ketorolac IVP 15 mg IVP once Route: IVP; Site: right wrist; tm6 15:21 Follow up: Response: No adverse reaction; Pain is unchanged, physician notified tm6 14:05 Drug: DuoNeb Nebulize (3:1) (2.5 mg - 0.5 mg) 3 ml Nebulizer once Route: Nebulizer; tm6 15:22 Follow up: Response: No adverse reaction tm6 15:29 Drug: Methocarbamol IVPB 1 grams IVPB once over 1 hrs; (mix in NS 100 mL) Route: IVPB; tm6 Infused Over: 1 hrs; Site: right wrist; 16:30 Follow up: Response: No adverse reaction; Pain is decreased; IV Status: Completed tl4 infusion; IV Intake: 100ml Disposition Summary: 05/27/24 18:14 Discharge Ordered Notes: Location: Home rt Problem: new rt Symptoms: have improved rt Condition: Stable rt Diagnosis - Chest pain, unspecified rt - Other seizures rt Followup: rt - With: Private Physician - When: 2 - 3 days - Reason: Discharge Instructions: - Discharge Summary Sheet rt - Nonspecific Chest Pain, Adult rt - Seizure, Adult rt Forms: - Medication Reconciliation Form rt - Antibiotic Education rt - Prescription Opioid Use rt - Patient Portal Instructions rt - Leadership Thank You Letter rt Prescriptions: - Eliquis 5 mg Oral tablet - take 1 tablet ORAL route every 12 hours; 60 tablet; Refills: 0, Product rt Selection Permitted Signatures: Dispatcher [employer] EDAna Mcginnis, RN RN aa5 Gus Canela MD MD rt Tawanda Shaw RN RN tm6 Benoit Blancas RN RN tl4 Corrections: (The following items were deleted from the chart) 16:00 16:00 Chest For PE Angio+CT.RAD.BRZ ordered. EDMS EDMS 16:00 16:00 Extrem Venous W Compression Yuriy+US.RAD.BRZ ordered. EDMS EDMS
--- NOTE | 2024-05-27 18:15 | ER ---
Nurse's Notes [facility] Name: Heather Coon Age: 54 yrs Sex: Female : 1970 Arrival Date: 05/27/2024 Time: 12:39 Bed 2 Private MD: Diagnosis: Chest pain, unspecified;Other seizures Presentation: 05/27 12:48 Chief complaint: Patient states: Pt states she woke up with sharp midsternal chest pain tl4 that is reproducible with movement and radiates into left arm. Pt also c/o shortness of breath. EMS reports grand mal type seizures x 2 lasting 10-15 seconds each. Pt states she has flu and pneumonia approx 2 weeks ago. Coronavirus screen: At this time, the client does not indicate any symptoms associated with coronavirus-19. Ebola Screen: No symptoms or risks identified at this time. Initial Sepsis Screen: Does the patient meet any 2 criteria? Yes Does the patient have a suspected source of infection? No. Patient's initial sepsis screen is negative. Risk Assessment: Do you want to hurt yourself or someone else? Patient reports no desire to harm self or others. Onset of symptoms was May 27, 2024 at 10:45. Care prior to arrival: Medication(s) given: ASA, 81 mg, x 4, Nitroglycerin, 0.4 mg SL x 1, IV initiated. 20 GA, in the left wrist, 20g right wrist Glucose check: 130 Oxygen administered. via nasal cannula. Activity prior to arrival: seizure. Transition of care: patient was not received from another setting of care. 12:48 Acuity: ANDER 2 tl4 12:48 Method Of Arrival: EMS: [facility] tl4 Triage Assessment: 12:57 General: Appears distressed, Behavior is crying. Pain: Complains of pain in chest Pain tl4 radiates to left arm Pain. 13:19 EENT: No signs and/or symptoms were reported regarding the EENT system. Neuro: No tl4 deficits noted. Cardiovascular: Reports chest pain, shortness of breath, Denies diaphoresis, nausea, palpitations, Capillary refill < 3 seconds Patient's skin is warm and dry. Respiratory: Airway is patent Respiratory effort is even, unlabored, Respiratory pattern is regular, symmetrical, Breath sounds are coarse bilaterally. GI: No signs and/or symptoms were reported involving the gastrointestinal system. : No signs and/or symptoms were reported regarding the genitourinary system. Derm: No signs and/or symptoms reported regarding the dermatologic system. Musculoskeletal: No signs and/or symptoms reported regarding the musculoskeletal system. 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 N/A - control method, Not tl4 Historical: - Allergies: 13:27 fluoxetine; tl4 13:27 Green Tea; tl4 13:27 Keppra; not an allergy; tl4 - Home Meds: 13:27 Metoprolol Tartrate Oral [Active]; lisinopril Oral [Active]; Depakote 500 mg Oral tl4 tablet 1 tab 2 times per day [Active]; Lasix Oral [Active]; clomiphene citrate oral [Active]; Folic Acid Oral [Active]; - PMHx: 13:27 Anxiety; Arthritis; Bipolar disorder; Cancer-Cervical; Chronic obstructive lung tl4 disease; Chronic pain; Congestive heart failure; Depression; Diverticulitis; Herniated Back Disc; Hypertension; intestinal mass; Myocardial infarction; pt reports hx of seizures; Spastic Muscles; stroke; - PSHx: 13:27 back surgery; cervical fusion; Cholecystectomy; foot; Tonsillectomy; tl4 - Immunization history:: Adult Immunizations unknown. - Infectious Disease History:: Denies. - Social history:: Smoking status: Patient reports the use of cigarette tobacco products, smokes one-half pack cigarettes per day, Patient/guardian denies using alcohol, street drugs, pt states she quit ETOH and cocaine 1 month ago. Screenin:31 [facility] ED Fall Risk Assessment (Adult) History of falling in the last 3 months, tl4 including since admission No falls in past 3 months (0 pts) Confusion or Disorientation No (0 pts) Intoxicated or Sedated No (0 pts) Impaired Gait No (0 pts) Mobility Assist Device Used No (0 pt) Altered Elimination No (0 pt) Score/Fall Risk Level 0 - 2 = Low Risk Oriented to surroundings, Maintained a safe environment, Educated pt \\T\\ family on fall prevention, incl call for assistance when getting out of bed, Assessed \\T\\ reinforced patient's understanding of fall precautions. Abuse screen: Denies threats or abuse. Denies injuries from another. Nutritional screening: No deficits noted. Tuberculosis screening: No symptoms or risk factors identified. Assessment: 13:00 Reassessment: Pt does not know any of the medications she is prescribed to take on a tl4 daily basis. Pt states "whatever is in the computer is what I take". Pt encouraged to have a list of current medications. 14:03 General: Appears distressed, Behavior is crying. Pain: Complains of pain in chest and tl4 left arm Pain radiates to left arm Pain currently is 8 out of 10 on a pain scale. Quality of pain is described as pressure, sharp, stabbing, Pain began woke up with it, but not because of it at 1045 this morning. Neuro: Level of Consciousness is awake, alert, obeys commands, Oriented to person, place, time, situation, Moves all extremities. Full function Speech is normal, Facial symmetry appears normal, Seizure activity reported prior to arrival. Type of seizure: grand mal seizure. Seizure lasted approximately .25 minutes. pt had seizure witnessed by staff. Seizure was tonic-clonic in nature and lasted approx 30 seconds. Pt woke up after seizure activity stopped. No noted postictal period. Cardiovascular: Reports chest pain, shortness of breath, Denies diaphoresis, fatigue, lightheadedness, nausea, palpitations, syncope, Capillary refill < 3 seconds Patient's skin is warm and dry. Respiratory: Reports shortness of breath Airway is patent Respiratory effort is even, unlabored, Respiratory pattern is regular, symmetrical, Breath sounds are coarse bilaterally. GI: No signs and/or symptoms were reported involving the gastrointestinal system. : No signs and/or symptoms were reported regarding the genitourinary system. EENT: No signs and/or symptoms were reported regarding the EENT system. Derm: No signs and/or symptoms reported regarding the dermatologic system. Musculoskeletal: No signs and/or symptoms reported regarding the musculoskeletal system. 14:05 Reassessment: when told she was being given Toradol for pain, patient said "Toradol? tm6 Are you kidding? I'm so stupid I should have gone to [facility]. Toradol is not going to cut it. Is Dr. Santillan here?". 15:04 Reassessment: Pt had another episode of seizure like activity lasting approx 30 tl4 seconds. Pt assisted this RN with rolling herself onto her right side while still having tonic clonic type activity. Pt awake, alert, oriented as soon as shaking stopped. Pt c/o severe unmanageable pain whenever she has seizures. Dr Canela aware. 15:30 Reassessment: Patient and/or family updated on plan of care and expected duration. Pain tm6 level reassessed. Patient is alert, oriented x 3, equal unlabored respirations, skin warm/dry/pink. 18:04 Reassessment: Patient and/or family updated on plan of care and expected duration. Pain tl4 level reassessed. Patient is alert, oriented x 3, equal unlabored respirations, skin warm/dry/pink. Pt states she wants IVs removed. Pt encouraged to allow IV x 1 to remain. Pt states ok to leave right upper arm IV in place. 18:17 Reassessment: Pt refuses discharge vital signs. tl4 Vital Signs: 12:48 BP 123 / 79; Pulse 83; Resp 14; Temp 98.3(O); Pulse Ox 100% on R/A; Weight 99.79 kg; tl4 Height 5 ft. 2 in. ; Pain 10/10; 13:42 BP 127 / 95; Pulse 87; Pulse Ox 98% on R/A; MAP 103 mmHg; Pain 10/10; tm6 14:36 BP 115 / 83; Pulse 84; Pulse Ox 98% on R/A; MAP 95 mmHg; Pain 10/10; tm6 15:29 BP 149 / 79; Pulse 84; Pulse Ox 100% on R/A; MAP 101 mmHg; Pain 10/10; tm6 16:25 BP 163 / 71; Pulse 70; Pulse Ox 100% on R/A; MAP 85 mmHg; tm6 12:48 Body Mass Index 40.24 (99.79 kg, 157.48 cm) tl4 12:48 Pain Scale: Adult tl4 13:42 Pain Scale: Adult tm6 14:36 Pain Scale: Adult tm6 15:29 Pain Scale: Adult tm6 ED Course: 12:46 Patient arrived in ED. tl4 12:51 Gus Canela MD is Attending Physician. rt 12:57 Triage completed. tl4 13:07 EKG done, by ED staff, reviewed by Gus Canela MD. tm6 13:31 Arm band placed on left wrist. tl4 13:32 No provider procedures requiring assistance completed. Maintain EMS IV. Dressing tl4 intact. Good blood return noted. Site clean \\T\\ dry. Gauge \\T\\ site: 20g right wrist. Flushed with 10 mL NS 20g left wrist, flushed, patent. Patient maintains SpO2 saturation greater than 95% on room air. 13:32 Patient has correct armband on for positive identification. Placed in gown. Bed in low tl4 position. Call light in reach. Side rails up X2. Provided Education on: ed process, call whitney. Client placed on continuous cardiac and pulse oximetry monitoring. NIBP monitoring applied. lunchroom monitor on. Noise minimized. Lights dimmed. Moved to private room. Warm blanket given. 13:34 ETOH Level Sent. tl4 13:34 CBC Smear Scan Sent. tl4 13:34 Basic Metabolic Panel Sent. tl4 13:34 LFT's Sent. tl4 13:34 Magnesium Sent. tl4 13:34 Troponin HS Sent. tl4 13:35 Initial lab(s) drawn, by me, sent to lab. tl4 13:47 XRAY Chest (1 view) In Process Unspecified. EDMS 16:45 Extrem Venous W Compression Yuriy US In Process Unspecified. EDMS 17:07 Inserted saline lock: 22 gauge in right upper arm, using aseptic technique. Flushed tl4 with 10 mL NS. 17:28 CT Chest For PE Angio In Process Unspecified. EDMS 18:05 IV discontinued, intact, bleeding controlled, No redness/swelling at site. Pressure tl4 dressing applied. 18:05 IV discontinued, intact, bleeding controlled, No redness/swelling at site. Pressure tl4 dressing applied. 18:17 Benoit Blancas, RN is Primary Nurse. tl4 18:18 IV discontinued, intact, bleeding controlled, No redness/swelling at site. Pressure tl4 dressing applied. Administered Medications: 13:07 Drug: Ativan IVP 1 mg IVP once Route: IVP; Site: left wrist; tm6 13:34 Follow up: Response: No adverse reaction tl4 14:05 Drug: Ketorolac IVP 15 mg IVP once Route: IVP; Site: right wrist; tm6 15:21 Follow up: Response: No adverse reaction; Pain is unchanged, physician notified tm6 14:05 Drug: DuoNeb Nebulize (3:1) (2.5 mg - 0.5 mg) 3 ml Nebulizer once Route: Nebulizer; tm6 15:22 Follow up: Response: No adverse reaction tm6 15:29 Drug: Methocarbamol IVPB 1 grams IVPB once over 1 hrs; (mix in NS 100 mL) Route: IVPB; tm6 Infused Over: 1 hrs; Site: right wrist; 16:30 Follow up: Response: No adverse reaction; Pain is decreased; IV Status: Completed tl4 infusion; IV Intake: 100ml Medication: 13:31 VIS not applicable for this client. tl4 Intake: 16:30 IV: 100ml; Total: 100ml. tl4 Outcome: 18:14 Discharge ordered by . rt 18:33 Discharged to home via wheelchair, tl4 18:33 Condition: stable 18:33 Discharge instructions given to patient, Instructed on discharge instructions, follow up and referral plans. medication usage, Demonstrated understanding of instructions, follow-up care, medications, Prescriptions given X 1, 18:35 Patient left the ED. tl4 Signatures: Dispatcher [employer] EDMS Gus Canela MD MD rt Tawanda Shaw RN RN tm6 Benoit Blancas RN RN tl4 Corrections: (The following items were deleted from the chart) 13:27 12:57 General: Appears distressed, Behavior is crying, tl4 tl4 13:37 12:48 Method Of Arrival: EMS: [facility] tl4 tl4
[2024-05-27 19:06] VITALS: TEMP 98.3
[2024-05-27 19:10] VITALS: O2SAT 100
[2024-05-27 19:11] VITALS: BP 163/71
--- NOTE | 2024-05-29 12:44 | EKG ---
Test Date: 2024-05-27 Test Time: 13:05:34 Journeyman Patternmaker: FITZ MEASUREMENT RESULTS: Intervals: Rate: 82 OH: 148 QRSD: 74 QT: 432 QTc: 504 Universal: P: 74 OH: 148 QRS: 163 T: 42 INTERPRETIVE STATEMENTS: Normal sinus rhythm Low voltage QRS Septal infarct, age undetermined Lateral infarct, age undetermined Abnormal ECG Compared to ECG 04/23/2024 13:36:55 Low QRS voltage now present Myocardial infarct finding now present Right-axis deviation no longer present T-wave abnormality no longer present Prolonged QT interval no longer present Electronically Signed On 05-29-24 12:39:46 TECHNOLOGY ARCHITECT by Christian Crocker
== END 2024-05-27 18:35 | disposition home or self-care (01) ==
LOC: ER 12:39
DX: R07.9 Chest pain, unspecified (principal); G40.89 Other seizures; I10 Essential (primary) hypertension; I50.9 Heart failure, unspecified; F17.210 Nicotine dependence, cigarettes, uncomplicated
CPT/HCPCS: 93005; 85025; 80048; 36415; 83735; 85379; 80076; 84484 ×2; 71275; 71045; 93970; 99285; 82077; Q9967; J7613; J7644; J2800

== ENCOUNTER 2024-06-13 19:14 | Emergency (ER) | payer OTHER ==
[2024-06-13] MEDS ORDERED: PROMETHAZINE INJ 25 MG/ML AMP ONE (19:33)
[2024-06-13] MEDS ORDERED: METHOCARBAMOL 1,000 MG/10 ML VIAL ONE (19:33)
--- OUTSIDE RECORDS SUMMARY | 2024-06-13 19:33 | XMS REPORT | Continuity of Care Document ---
Author Name Unknown Address [address] [facility] [address] [place] [address] [facility] thconnect Address [address] [facility] [address] [place] [address] Care Team Providers Care Passenger Car Cleaning Supervisor Name Role Phone Aneta Silva Primary Care Physician [phone] PANKAJ OBREGON Attending Clinician Un available AYDEE GO Attending Clinician Unavailable MARIANELA BURGESS Attending Clinician Unavailab ADAM Cabrera Attending Clinician Unavailable THOMAS LOZOYA Attending Clinician Nina MARIAH Quiroga Attending Clinician Unavailable GUSTAVO DELANEY Attending Clinician Unavailable CHRISSY MOHR Attending Clinician Unavailable CHRISSY MOHR Attending Clinician Unavailable Chrissy Mohr DO Attending Clinician [phone] MD GERRY Attending Clinician Unavailab le Doctor Unassigned, [place] Attending Clinician U MORALES Matamoros Attending Clinician Unavailab RADHA Vargas Attending Clinician Unavailable RADHA WYATT Attending Clinician Unavailable Veronique Carrillo RN Attending Clinician + [phone] DARRICK ALTAMIRANO Attending Clinician Unavailabl Olena Bob NP Attending Clinician [phone] Alfonso Lopez Attending Clinician +[phone] Darrick Altamirano MD. Attending Clinician + [phone] Morena CAMPOS, Jodi Gonzalez Attending Clinician Unavail able TAL BENAVIDEZ Attending Clinician Unavailable Mj Bryan DO Attending Clinician [phone] Tal Benavidez MD Attending Clinician [phone] MOJGAN SIMENTAL Attending Clinician Unav Connor Ortiz MD Attending Clinician + [phone] Mojgan Simental MD Attending Clinician + Madeline Mckinley RN Attending Clinician Unavailab MADELINE Edwards Attending Clinician Unavailable MADELINE PIERRE Attending Clinician Unavailable Megan Rondon MD Attending Clinician [phone] Cr Altamirano MD Attending Clinician +[phone] Ivis Mcdermott MD Attending Clinician +[phone] Ryder Vaca MD Attending Clinici an AARON LEDESMA Attending Clinician Unavailable Cris Molina MD Attending Clinician +[phone] EFRA BABCOCK Attending Clinician Un available MYLA LIEBERMAN Attending Clinician Unavailable JUANY GREEN Attending Clinician Unavailable PROVIDER, CAMPAIGNS Attending Clinician Unavaila SIDDHARTH Kaye Attending Clinician UnavailMARGOT Dexter Attending Clinician Unavailable SARAI JULES Attending Clinician Unavaila YONATAN Juarez Attending Clinician Unava ilable EDWARD FERRER Attending Clinician Unavailable Nir ELIZONDO, [place] Olivia Attending Clinician Unavailab monroe Obregon MD, Pankaj Attending Clinician +[phone] Edward Altamirano DO Attending Clinician [phone] Bud ELIZONDO, Edward Attending Clinician +[phone] DEMETRIUS TOBAR Attending Clinician Unavailab QUIN Armenta Attending Clinician Unavail able Kael BELTRAN, Quin Stewart Attending Clinician [phone] MJ BRYAN Attending Clinician Unavailable Provider, Not In System Attending Clinician Unav paulable Jenifer ELIZONDO, Marianela Hamilton Attending Clinician +[phone] Abbi ELIZONDO, Aydee Attending Clinician +[phone] Dallas Gomez Attending Clinician [phone] Adam Garcia MD Attending Clinician +[phone] Mercedez ELIZONDO, Harry Attending Clinician +[phone] Rocael ELIZONDO, Antwon Attending Clinician Unavailab Yue Booth MD Attending Clinician [phone] Connie Davey MD Attending Clinician +[phone] Mariah Aldridge MD Attending Clinician + [phone] Valerio ELIZONDO, Thomas Reddy Attending Clinician + [phone] CONNIE DAVEY Attending Clinician UnavailAlfonso Oh Attending Clinician Unavailable RITCHIE WARREN Attending Clinician Unavailable Ritchie Warren MD Attending Clinician +[phone] Rk CAMPOS, Margot Stoner Attending Clinician +[phone] PARRISH WHEATLEY Attending Clinician Unavaila Halima Patterson MD Attending Clinician +[phone] Lucho ELIZONDO, Ning Olivia Attending Clinician +[phone] Roxi ELIZONDO, Parrish Reyez Attending Clinici an DAMI LOWRY Attending Clinician Unavailable Dami Lowry MD Attending Clinician [phone] Corey PÉREZN, Maria Teresa Attending Clinician + [phone] CHANTEL BOJORQUEZ Attending Clinician CHANTEL Kelly Attending Clinician Jack Ibrahim MD, Brandyn Otoole Attending Clinician +[phone] SELINA MARTINES Attending Clinician Unavailable Sapna Vargas DO Attending Clinician + [phone] Tyrel ELIZONDO, Glory Katz Attending Clinician + Selina Martines MD Attending Clinician [phone] Vaccine, Leggett Pedi Attending Clinician U chelsi Pak MD, Joes Attending Clinician +[phone] JOSE PAK Attending Clinician Unavailable WILLIAMS VIRK Attending Clinician Unavaila ble Sully FLATBED TRUCK DRIVER, Williams F Attending Clinician [phone] Miky Nava RN Attending Clinician Unavailab monroe BRONSONP, Shinta Attending Clinician +[phone] Ebpenelope FLATBED TRUCK DRIVER, Jermaineia Attending Clinician [phone] Unknown, Attending Attending Clinician Unavailab le UNKNOWN, ATTENDING Attending Clinician Unavailab Estefania Berg S Attending Clinician [phone] Yehuda Arcos MD Attending Clinician [phone] PANKAJ OBREGON Admitting Clinician Un available MARIANELA BURGESS Admitting Clinician Unavailab DAAM Cabrera Admitting Clinician Unavailable MARIAH ALDRIDGE Admitting Clinician Unavailable CHRISSY MOHR Admitting Clinician Unavailable RADHA WYATT Admitting Clinician Unavailable DARRICK ALTAMIRANO Admitting Clinician UnavailDarrick Geiger MD Admitting Clinician +[phone] TAL BENAVIDEZ Admitting Clinician Unavailable Tal Benavidez MD Admitting Clinician +[phone] MOJGAN SIMENTAL Admitting Clinician Unav ailable Mojgan Simental MD Admitting Clinician + CR ALTAMIRANO Admitting Clinician Unavailable CONNIE DAVEY Admitting Clinician UnavailAlfonso Oh Admitting Clinician Unavailable RITCHIE WARREN Admitting Clinician Unavailable NING GELLER Admitting Clinician Unavaila ble DAMI LOWRY Admitting Clinician Unavailable Dami Lowry MD Admitting Clinician +[phone] BRANDYN IBRAHIM Admitting Clinician Unavailable Brandyn Ibrahim MD Admitting Clinician +[phone] GLORY ESTEVES Admitting Clinician Unav ailable WILLIAMS VIRK Admitting Clinician Unavaila ble Payers Payer Name Policy Type Policy Number Effective Date Expirati on Date Source [facility] CYNTHIA VORA [id number] 2023 00:00:00 [facility] [id number] 2023 00:00:00 [facility] Valentin/ CYNTHIA VELASQUEZ [id number] 2023 00:00:00 2023 00:00:00 [facility] SESAR NASH COPAY FOCUS 9 [id number] 2023 00:00:00 MEDICAID PENDING PENDING 2022 00:00:00 Problems Condition Name Condition Details Condition Category Status Onset Date Resolution Date Last Treatment Date Treating Clinician Comments Source 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 systolic and diastolic congestive heart failure Disease Active 01-09 00:00: 00 [facility] Hypotensio n Hypotensio n Disease Active 01-08 00:00: 00 [facility] LV (left ventricula r) mural thrombus LV (left ventricula r) mural thrombus Disease Active 12-14 00:00: 00 [facility] Pulmonary hypertensi on Pulmonary hypertensi on Disease Active 5-28 00:00: 00 [facility] Shortness of breath Shortness of breath Disease Active 527 00:00: 00 [facility] Other chest pain Other chest pain Disease Active 5-15 00:00: 00 [facility] Depression Depression Disease Active 09-29 00:00: 00 Cynthia Garcia - Externa lisa Anxiety Anxiety Disease Active 09-29 00:00: 00 Cynthia Garcia - Externa l CAD (coronary artery disease) CAD (coronary artery disease) Disease Active 09-29 00:00: 00 Cynthia Garcia - Externa l COPD (chronic obstructiv e pulmonary disease) (multi HCC) COPD (chronic obstructiv e pulmonary disease) (multi HCC) Disease Active 09-29 00:00: 00 Cynthia Garcia - Externa lisa History of colon polyps History of colon polyps Disease Active 09-29 00:00: 00 Cynthia Garcia - Externa l Marijuana use Marijuana use Disease Active 09-29 00:00: 00 Cynthia Garcia - Externa l Seizure (multi HCC) Seizure (multi HCC) Disease Active 09-29 00:00: 00 Cynthia Garcia - Externa l Tobacco use Tobacco use Disease Active 09-29 00:00: 00 Cynthia Garcia - Externa l Type 2 diabetes mellitus with hyperglyce ortega, without long-term current use of insulin (multi HCC) Type 2 diabetes mellitus with hyperglyce ortega, without long-term current use of insulin (multi HCC) Disease Active 09-11 00:00: 00 Cynthia Garcia - Externa lisa CHF (congestiv e heart failure) (multi HCC) CHF (congestiv e heart failure) (multi HCC) Disease Active 09-11 00:00: 00 Cynthia Garcia - Externa l Bipolar disorder (multi HCC) Bipolar disorder (multi HCC) Disease Active 09-11 00:00: 00 Cynthia Garcia - Externa lisa Seizure disorder (multi HCC) Seizure disorder (multi HCC) Disease Active 09-11 00:00: 00 Cynthia Seybold - Externa l Prediabete s Prediabete s Disease Active 09-11 00:00: 00 Cynthia Seybold - Externa l Bilateral leg weakness Bilateral leg weakness Disease Active 2022-07 00:00: 00 [facility] Bilateral leg weakness Bilateral leg weakness Disease Active 2022-07 00:00: 00 [facility] Pneumonia Pneumonia Disease Active 2022-07 00:00: 00 [facility] Cavitary lesion of lung Cavitary lesion of lung Disease Active 2022-07 00:00: 00 [facility] Cervical myelopathy Cervical myelopathy Disease Recurre mie 2022-07 00:00: 00 [facility] Cervical disc disorder with myelopathy , high cervical region Cervical disc disorder with myelopathy , high cervical region Disease Active 2022-07 00:00: 00 [facility] Cord compressio n Cord compressio n Disease Recurre nce - 00:00: 00 [facility] Cauda equina compressio n Cauda equina compressio n Disease Active 03-30 00:00: 00 [facility] Seizure Seizure Disease Recurre mie - 00:00: 00 [facility] Cardiomyop athy Cardiomyop athy Disease Active 08-01 00:00: 00 [facility] NSVT (nonsustai keisha ventricula r tachycardi a) NSVT (nonsustai keisha ventricula r tachycardi a) Disease Active 08-01 00:00: 00 [facility] Elevated brain natriureti c peptide (BNP) level Elevated brain natriureti c peptide (BNP) level Disease Active 07-31 00:00: 00 [facility] Chest pain, unspecifie d type Chest pain, unspecifie d type Disease Active 07-31 00:00: 00 [facility] Elevated brain natriureti c peptide (BNP) level Elevated brain natriureti c peptide (BNP) level Disease Active 07-31 00:00: 00 [facility] Coronary artery disease involving [place] coronary artery of [place] heart without angina pectoris Coronary artery disease involving [place] coronary artery of [place] heart without angina pectoris Disease Active 07-31 00:00: 00 [facility] Snores Snores Disease Active 07-31 00:00: 00 [facility] Cigarette smoker Cigarette smoker Disease Active 07-31 00:00: 00 [facility] Primary hypertensi on Primary hypertensi on Disease Active 07-31 00:00: 00 [facility] Other hyperlipid emia Other hyperlipid emia Disease Active 07-31 00:00: 00 [facility] Coronary artery disease involving [place] coronary artery of [place] heart without angina pectoris Coronary artery disease involving [place] coronary artery of [place] heart without angina pectoris Disease Active 07-31 00:00: 00 [facility] Chronic bilateral low back pain with bilateral sciatica Chronic bilateral low back pain with bilateral sciatica Disease Active 2021-07 0-17 00:00: 00 [facility] 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 Disease Active 04-15 00:00: 00 [facility] Neuroforam inal stenosis of cervical spine Neuroforam inal stenosis of cervical spine Disease Active 04-15 00:00: 00 [facility] Stroke-lik e symptoms Stroke-lik e symptoms Disease Active 04-13 00:00: 00 [facility] Bipolar disorder, in partial remission, most recent episode manic Bipolar disorder, in partial remission, most recent episode manic Disease Active 09-27 00:00: 00 [facility] Neuroforam inal stenosis of lumbar spine Neuroforam inal stenosis of lumbar spine Disease Active 09-27 00:00: 00 [facility] Bilateral acute otitis media, recurrence not specified, unspecifie d otitis media type Bilateral acute otitis media, recurrence not specified, unspecifie d otitis media type Disease Active 09-27 00:00: 00 [facility] Lumbar spinal stenosis Lumbar spinal stenosis Disease Active 09-27 00:00: 00 [facility] Right-side d low back pain with sciatica, sciatica laterality unspecifie d Right-side d low back pain with sciatica, sciatica laterality unspecifie d Disease Active 09-27 00:00: 00 [facility] Generalize d anxiety disorder Generalize d anxiety disorder Disease Active 09-27 00:00: 00 [facility] Agoraphobi a Agoraphobi a Disease Active 09-27 00:00: 00 [facility] Bipolar disorder, in partial remission, most recent episode manic Bipolar disorder, in partial remission, most recent episode manic Disease Active 09-27 00:00: 00 [facility] Obsessive compulsive disorder Obsessive compulsive disorder Disease Active 09-27 00:00: 00 [facility] Breast mass, left Breast mass, left Disease Active 09-17 00:00: 00 [facility] Anxiety Anxiety Disease Active 09-17 00:00: 00 [facility] Lower back pain Lower back pain Disease Active 09-17 00:00: 00 [facility] High blood pressure High blood pressure Disease Active 09-17 00:00: 00 [facility] COPD (chronic obstructiv e pulmonary disease) COPD (chronic obstructiv e pulmonary disease) Disease Active 09-17 00:00: 00 [facility] Obesity Obesity Disease Active 09-17 00:00: 00 [facility] Breast pain Breast pain Disease Resolve d 09-17 00:00: 00 2015-09-18 00:00:00 2015-09-18 13:19:09 [facility] Allergies, Adverse Reactions, Alerts Allergy Name Allergy Type Status Severity Reaction(s) Onset Date Inactive Date Treating Clinician Comments Source Fluoxeti ne Propensi ty to adverse reaction s Active 03-29 00:00: [address] [facility] Green Tea Drug Allergy Active Other (See Comments) 0 - 00:00: 00 Seizure like activity [facility] Levetira cetam Drug Allergy Active Nausea And Vomiting 03-29 00:00: 00 Intensifi es seizure [facility] FLUOXETI NE Allergy Active 03-29 00:00: 00 [facility] GREEN TEA Allergy Active High Other 0 03-29 00:00: 00 [facility] LEVETIRA CETAM Allergy Active High N\\T\\V 03-29 00:00: 00 [facility] Green Tea Propensi ty to adverse reaction s Active 03-29 00:00: 00 Seizure like activity [facility] Levetira cetam Propensi ty to adverse reaction s Active Nausea And Vomiting 03-29 00:00: 00 Intensifi es seizure [facility] LEVETIRA CETAM DRUG INGREDI Active Other-Cmnt 11-17 00:00: 00 [facility] Levetira cetam Propensi ty to adverse reaction s Active Other - See comments 11-17 00:00: 00 Makes seizures worse [facility] Levetira cetam Propensi ty to adverse reaction s Active Other 11-17 00:00: 00 Intensifi es seizure Makes seizures worse Makes seizures worse Intensifi es seizure Cynthia Seybold - Externa l FLUOXETI NE Allergy Active Med Rash 2022-0 1-14 00:00: 00 [facility] Fluoxeti ne Propensi ty to adverse reaction s Active Rash 0 1-14 00:00: 00 [facility] Green Tea Propensi ty to adverse reaction s Active 0 - 00:00: 00 [facility] GREEN TEA Allergy Active - 00:00: 00 [facility] Fluoxeti ne Propensi ty to adverse reaction s Active Unknown - See comments - 00:00: 00 [facility] FLUOXETI NE DRUG INGREDI Active Unknown-Cmnt 03-25 00:00: 00 [facility] DICLOFEN AC DRUG INGREDI Active HYPERTENSION 11-20 00:00: 00 [facility] Diclofen ac Propensi ty to adverse reaction s Active Anxiety 11-20 00:00: 00 Cynthia Garcia - Kaceya lisa GREEN TEA DRUG INGREDI Active Med Other-Cmnt 08-10 00:00: 00 [facility] Green Tea Propensi ty to adverse reaction s to drug Active Other - See comments 08-10 00:00: 00 Seizures [facility] Green Tea Propensi ty to adverse reaction s Active Anxiety 08-10 00:00: 00 Seizure like activity Seizures Seizures Seizure like activity Cynthia Garcia - Kaceya l FLUOXETI NE HCL DRUG INGREDI Active Hives 03-19 00:00: 00 [facility] Fluoxeti ne Hcl Propensi ty to adverse reaction s Active Hives 03-19 00:00: 00 [facility] Family History Family Member Diagnosis Comments Start Date Stop Date Sourc e Natural mother Alcohol abuse [facility] Natural mother Cancer [facility] Natural mother Diabetes [facility] Natural mother Heart disease [facility] Natural mother Hyperlipidemia [facility] Natural mother Kidney disease [facility] Natural mother Stroke [facility] Natural mother Alcohol abuse [facility] Natural mother Stroke [facility] Paternal uncle Diabetes [facility] Social History Social Habit Start Date Stop Date Quantity Comments Source History SDOH Alcohol Frequency [facility] History SDOH Alcohol Std Drinks [facility] History SDOH Alcohol Binge [facility] History SDOH Housing Homeless Last Year [facility] History of tobacco use Passive smoker [facility] History SDOH Social Connections Get Together [facility] History SDOH Social Connections [facility] History SDOH Social Connections Membership [facility] History SDOH Social Connections Meetings [facility] ASSERTION Not [facility] Sexual orientation [facility] Alcohol intake 2023-09-30 00:00:00 2023-09-30 00:00:00 .57 /d Cynthia Garcia - External Education - What is the highest level of school you have completed or the highest degree you have received? 2023-09-30 00:00:00 2023-09-30 00:00:00 GED or equivalent Cynthia Garcia - External History of Social function 2023-08-03 00:00:00 2023-08-03 00:00:00 [facility] Alcoholic beverage intake 2023-06-02 00:00:00 2023-06-02 00:00:00 Current drinker of alcohol (finding) [facility] Exposure to SARS-CoV-2 (event) 2023-05-18 00:00:00 2023-05-28 07:28:00 Not sure [facility] History SDOH Housing Unable to Pay - In the last 12 months, was there a time when you were not able to pay the mortgage or rent on time? 2023-05-26 00:00:00 2023-05-26 00:00:00 Yes [facility] Cigarettes smoked current (pack per day) - Reported 2023-05-26 00:00:00 2023-05-26 00:00:00 [facility] Cigarette pack-years 2023-05-26 00:00:00 2023-05-26 00:00:00 [facility] Tobacco use and exposure 2023-05-26 00:00:00 2023-05-26 00:00:00 Smokeless tobacco non-user [facility] History SDOH Housing Places Lived 2023-03-30 00:00:00 2023-03-30 00:00:00 1 [facility] Alcohol Comment 2023-03-29 00:00:00 2023-03-29 00:00:00 2x a week [facility] History SDOH Social Connections Phone 2022-08-01 [...] [facility] Sex assigned at 1970 00:00:00 1970 00:00:00 [facility] Smoking Status Start Date Stop Date Source Smokes tobacco daily 2023-11-25 00:00:00 [facility] Never smoked tobacco Cynthia Garcia - External Ex-smoker 2023-05-26 00:00:00 2023-05-26 00:00:00 [facility] Medications Ordered Medication Name Filled Medication [...] to tolerate oral medication s? Yes [facility] (DEPACON[facility] 500 mg in D5W piggyback 04-03 03:30: 00 04-03 04:49 :00 No 500mg 500 mg, IV Piggyback, ONCE NOW, 1 dose, On 04/02/24 at 2245, Administer over 30 Minutes, 100 mL [facility] divalproex (DEPAKOTE) delayed release tablet 250 mg 04-03 03:15: 00 04-03 04:07 :00 No 250mg 250 mg, Oral, ONCE NOW, 1 dose, On 04/02/24 at 2215, [facility] ondansetron (ZOFRAN (PF)) injection 4 mg 04-03 02:30: 00 04-03 04:58 :00 No 4mg 4 mg, Slow IV Push, ONCE, 1 dose, On 04/02/24 at 2130, [facility] morpHINE (4 mg/mL) injection 4 mg 04-03 02:30: 00 04-03 04:58 :00 No 4mg 4 mg, Slow IV Push, ONCE, 1 dose, On 04/02/24 at 2130, STAT [facility] divalproex ER 500 mg 24 hr tablet 04-03 00:00: 00 Yes [id number] 1000mg Take 2 tablets by mouth every 12 (twelve) hours. [facility] KCL 20 mEq tablet 04-03 00:00: 00 04-09 04:59 :00 Yes [id number] 40meq Take 2 tablets by mouth in the morning for 5 days. [facility] LORazepam (ATIVAN) tablet 1 mg 01-12 04:00: 00 01-12 03:56 :00 No 1mg 1 mg, Oral, ONCE, 1 dose, On Thu01/12/24 at 2300, [facility] ondansetron (ZOFRAN (PF)) injection 8 mg 01-12 04:00: 00 01-12 03:55 :00 No 8mg 8 mg, Slow IV Push, ONCE, 1 dose, On Thu01/12/24 at 2300, [facility] morpHINE (4 mg/mL) injection 6 mg 01-12 04:00: 00 01-12 03:55 :00 No 6mg 6 mg, Slow IV Push, ONCE, 1 dose, On Thu01/12/24 at 2300, STAT [facility] mirtazapine (REMERON) tablet 15 mg 01-10 02:00: 00 Yes 15mg [facility] atorvastati n (LIPITOR) tablet 40 mg 01-10 02:00: 00 Yes 40mg [facility] MULTIVITAMI N ORAL 01-09 15:56: 06 Yes 1{tbl} Take 1 Tab by mouth daily. [facility] omega-3 fatty acids-vitam in E (FISH OIL) 1,000 mg capsule 01-09 15:56: 06 Yes 1g Take 1 g by mouth daily. [facility] loratadine (CLARITIN LIQUI-GEL) 10 mg capsule 01-09 15:56: 06 Yes Take by mouth daily. [facility] metoprolol succinate XL 50 mg 24 hr tablet 01-09 15:56: 06 01-09 00:00 :00 No 50mg Take 1 tablet by mouth in the morning. [facility] KCL (KLOR-CON M20) tablet 40 mEq 01-09 15:45: 00 01-09 17:43 :00 No 40meq 40 mEq, Oral, ONCE, 1 dose, On Thu01/10/24 at 1045, Routine [facility] ondansetron 4 mg tablet 01-09 14:46: 23 01-09 00:00 :00 No 4mg Take 1 tablet by mouth every 8 (eight) hours as needed for Nausea and Vomiting (N/V). [facility] perflutren protein-A microsphr (OPTISON) injection 3 mL 01-09 14:15: 00 01-09 14:15 :00 No [id number] 3mL 3 mL, IV Push, ONCE, 1 dose, On Thu01/10/24 at 0915, Routine [facility] tamsulosin (FLOMAX) capsule 0.4 mg 01-09 14:00: 00 Yes .4mg 0.4 mg, Oral, DAILY, First dose on 01/10/24 at 0900, Until Discontinu ed, Routine [facility] metoprolol succinate XL (TOPROL XL) tablet 12.5 mg 01-09 14:00: 00 Yes 12.5mg [facility] DULoxetine (CYMBALTA) capsule 30 mg 01-09 14:00: 00 Yes 30mg 30 mg, Oral, DAILY, First dose on 01/10/24 at 0900, Until Discontinu ed, Routine [facility] digoxin (LANOXIN) tablet 125 mcg 01-09 14:00: 00 Yes 125ug 125 mcg, Oral, DAILY, First dose on 01/10/24 at 0900, Until Discontinu ed [facility] aspirin chewable tablet 81 mg 01-09 14:00: 00 Yes 81mg 81 mg, Oral, DAILY, First dose on 01/10/24 at 0900, Until Discontinu ed, [facility] nicotine (NICODERM[facility] 21 mg/24 hr patch 1 Patch 01-09 13:45: 00 Yes 1{patch } 1 Patch, Topical, Administer over 24 Hours, Q24H, First dose on 01/10/24 at 0845, Until Discontinu ed, Routine [facility] gabapentin (NEURONTIN) capsule 100 mg 01-09 13:00: 00 Yes 100mg 100 mg, Oral, TID, First dose on 01/10/24 at 0800, Until Discontinu ed, Routine [facility] divalproex (DEPAKOTE) delayed release tablet 1,000 mg 01-09 13:00: 00 Yes 1000mg 1,000 mg, Oral, Q12H, First dose on 01/10/24 at 0800, Until Discontinu ed, Routine [facility] cyclobenzap rine (FLEXERIL) tablet 5 mg 01-09 13:00: 00 Yes 5mg 5 mg, Oral, TID, First dose on 01/10/24 at 0800, Until Discontinu ed, Routine [facility] apixaban (ELIQUIS) tablet 5 mg 01-09 13:00: 00 02-27 12:59 :00 No [id number] 5mg 5 mg, Oral, BID, 98 doses, First dose on 01/10/24 at 0800, Last dose on 02/27/24 at 2000, Routine, Indication s: DVT/PE [facility] FENTanyl PF (SUBLIMAZE (PF)) injection 25 mcg 01-09 03:08: 20 01-10 03:07 :20 No 25ug 25 mcg, Slow IV Push, Q4HPRN, Starting on 01/09/24 at 2208, Until 01/10/24 at 2207, Routine, Pain (scale 7-10), Pain (scale 4-6) [facility] acetaminoph en (TYLENOL) tablet 650 mg 01-09 03:08: 07 Yes 650mg 650 mg, Oral, Q6HPRN, Starting on 01/09/24 at 2208, Until Discontinu ed, Routine, Pain (scale 1-3) [facility] ondansetron (ZOFRAN (PF)) injection 4 mg 01-09 02:45: 00 01-09 01:53 :00 No 4mg 4 mg, Slow IV Push, ONCE, 1 dose, On 01/09/24 at 2145, MICHAEL [facility] ipratropium -albuteroL (DUONEB) 0.5 mg-3 mg(2.5 mg base)/3 mL nebulizer solution 3 mL 01-09 02:45: 00 01-09 02:01 :00 No 3mL 3 mL, Inhalation , ONCE, 1 dose, On 01/09/24 at 2145, Routine [facility] cefTRIAXone (ROCEPHIN) 1,000 mg in NaCl 0.9% (NS) 100 mL MINI-BAG 01-09 02:30: 00 01-09 03:10 :00 No 1000mg 1,000 mg, IV Piggyback, ONCE, 1 dose, On 01/09/24 at 2130, Administer over 30 Minutes, 100 mL, Reason for Anti-Infec tive: Documented Infection, Documented Infection Site: Respirator y, Duration of Therapy: Once (ED) [facility] famotidine (PEPCID (PF)) injection 20 mg 01-09 01:45: 00 01-09 01:53 :00 No 20mg 20 mg, Slow IV Push, ONCE, 1 dose, On 01/09/24 at 2045, MICHAEL [facility] iopamidol (ISOVUE 370-500 mL) injection 90 mL 01-09 00:45: 00 01-09 00:45 :00 No [id number] 90mL 90 mL, Intravenou s, ONCE, 1 dose, On 01/09/24 at 1945, Routine [facility] atorvastati n 40 mg tablet 01-09 00:00: 00 Yes [id number] 20mg Take 0.5 tablets by mouth at bedtime. [facility] furosemide 40 mg tablet 01-09 00:00: 00 Yes [id number] 40mg Take 1 tablet by mouth every morning and evening. [facility] ipratropium -albuteroL 0.5 mg-3 mg(2.5 mg base)/3 mL nebulizer solution 01-09 00:00: 00 Yes [id number] 3mL Inhale 3 mL every 6 (six) hours as needed for Wheezing or Shortness of Breath. [facility] predniSONE 20 mg tablet 01-09 00:00: 00 01-15 04:59 :00 No [id number] 40mg Take 2 tablets by mouth in the morning for 5 days. [facility] FENTanyl PF (SUBLIMAZE (PF)) injection 50 mcg 01-08 22:45: 00 01-08 23:10 :00 No 50ug 50 mcg, Slow IV Push, ONCE, 1 dose, On 01/09/24 at 1745, STAT [facility] ondansetron (ZOFRAN (PF)) injection 4 mg 01-08 21:30: 00 01-08 21:47 :00 No 4mg 4 mg, Slow IV Push, ONCE, 1 dose, On 01/09/24 at 1630, MICHAEL [facility] aspirin tablet 325 mg 01-08 21:15: 00 01-08 21:47 :00 No 325mg 325 mg, Oral, ONCE, 1 dose, On 01/09/24 at 1615, STAT [facility] spironolact one 25 mg tablet 12-15 00:00: 00 01-15 04:59 :00 No [id number] 25mg Take 1 tablet by mouth in the morning for 30 days. [facility] furosemide (LASIX) tablet 40 mg 12-14 22:00: 00 Yes 40mg 40 mg, Oral, QAM+PM, First dose (after last modificati on) on Thu12/15/23 at 1700, Until Discontinu ed, Routine [facility] spironolact one (ALDACTONE) tablet 25 mg 12-14 14:00: 00 Yes 25mg 25 mg, Oral, DAILY, First dose on Thu12/15/23 at 0900, Until Discontinu ed, Routine [facility] tamsulosin (FLOMAX) capsule 0.4 mg 12-14 14:00: 00 Yes .4mg 0.4 mg, Oral, DAILY, First dose on Thu12/15/23 at 0900, Until Discontinu ed, Routine [facility] metoprolol succinate XL (TOPROL XL) tablet 12.5 mg 12-14 14:00: 00 Yes 12.5mg 12.5 mg, Oral, DAILY, First dose on Thu12/15/23 at 0900, Until Discontinu ed, Routine [facility] lisinopriL (PRINIVIL,Z ESTRIL) tablet 2.5 mg 12-14 14:00: 00 Yes 2.5mg [facility] DULoxetine (CYMBALTA) capsule 30 mg 12-14 14:00: 00 Yes 30mg 30 mg, Oral, DAILY, First dose on Thu12/15/23 at 0900, Until Discontinu ed, Routine [facility] digoxin (LANOXIN) tablet 125 mcg 12-14 14:00: 00 Yes 125ug 125 mcg, Oral, DAILY, First dose on Thu12/15/23 at 0900, Until Discontinu ed [facility] aspirin chewable tablet 81 mg 12-14 14:00: 00 Yes 81mg 81 mg, Oral, DAILY, First dose on Thu12/15/23 at 0900, Until Discontinu ed, Routine [facility] furosemide (LASIX) injection 40 mg 12-14 14:00: 00 12-14 13:49 :00 No 40mg 40 mg, Slow IV Push, ONCE, 1 dose, On Thu12/15/23 at 0900, Routine [facility] MULTIVITAMI N ORAL 12-14 11:08: 41 Yes 1{tbl} Take 1 Tab by mouth daily. [facility] omega-3 fatty acids-vitam in E (FISH OIL) 1,000 mg capsule 12-14 11:08: 41 Yes 1g Take 1 g by mouth daily. [facility] loratadine (CLARITIN LIQUI-GEL) 10 mg capsule 12-14 11:08: 41 Yes Take by mouth daily. [facility] ondansetron 4 mg tablet 12-14 11:08: 41 Yes 4mg Take 1 tablet by mouth every 8 (eight) hours as needed for Nausea and Vomiting (N/V). [facility] methylPREDN ISolone sod succ (SOLU-MEDRO L (PF)) injection 40 mg 12-14 11:00: 00 Yes 40mg 40 mg, Intravenou s, Q6H, First dose (after last modificati on) on Thu12/15/23 at 0600, Until Discontinu ed, Routine [facility] ipratropium -albuteroL (DUONEB) 0.5 mg-3 mg(2.5 mg base)/3 mL nebulizer solution 3 mL 12-14 08:08: 34 Yes 3mL 3 mL, Inhalation , QIDPRN, Starting on Thu12/15/23 at 0308, Until Discontinu ed, Routine, Wheezing, Shortness of Breath, Bronchospa sm, Chest tightness [facility] ipratropium -albuteroL (DUONEB) 0.5 mg-3 mg(2.5 mg base)/3 mL nebulizer solution 3 mL 12-14 03:19: 38 Yes 3mL 3 mL, Inhalation , QIDPRN, Starting on Thu12/14/23 at 2219, Until Discontinu ed, Routine, Wheezing, Shortness of Breath, Bronchospa sm, Chest tightness [facility] Sliding Scale Insulin - Lispro (HumaLOG) 12-14 02:00: 00 Yes [facility] mirtazapine (REMERON) tablet 15 mg 12-14 02:00: 00 Yes 15mg 15 mg, Oral, QHS, First dose on Thu12/14/23 at 2100, Until Discontinu ed, Routine [facility] atorvastati n (LIPITOR) tablet 40 mg 12-14 02:00: 00 Yes 40mg 40 mg, Oral, QHS, First dose on Thu12/14/23 at 2100, Until Discontinu ed, Routine [facility] lacosamide (VIMPAT) tablet 100 mg 12-14 01:00: 00 Yes 100mg 100 mg, Oral, BID, First dose on Thu12/14/23 at 2000, Until Discontinu ed, Routine [facility] gabapentin (NEURONTIN) capsule 100 mg 12-14 01:00: 00 Yes 100mg 100 mg, Oral, TID, First dose on Thu12/14/23 at 2000, Until Discontinu ed, Routine [facility] divalproex (DEPAKOTE) delayed release tablet 1,000 mg 12-14 01:00: 00 Yes 1000mg 1,000 mg, Oral, Q12H, First dose on Thu12/14/23 at 2000, Until Discontinu ed, Routine [facility] cyclobenzap rine (FLEXERIL) tablet 5 mg 12-14 01:00: 00 Yes 5mg 5 mg, Oral, TID, First dose on Thu12/14/23 at 2000, Until Discontinu ed, Routine [facility] apixaban (ELIQUIS) tablet 5 mg 12-14 01:00: 00 02-28 00:59 :00 No [id number] 5mg 5 mg, Oral, BID, 152 doses, First dose on Thu12/14/23 at 1999, Last dose on Thu02/28/24 at 0800, Routine, Indication s: DVT/PE [facility] ondansetron (ZOFRAN (PF)) injection 4 mg 12-14 00:15: 00 12-13 23:26 :00 No 4mg 4 mg, Slow IV Push, ONCE, 1 dose, On Thu12/14/23 at 1915, Routine [facility] morpHINE (4 mg/mL) injection 4 mg 12-14 00:15: 00 12-13 23:27 :00 No 4mg 4 mg, Slow IV Push, ONCE, 1 dose, On Thu12/14/23 at 1915, STAT [facility] metFORMIN 500 mg tablet 12-14 00:00: 00 01-14 04:59 :00 No [id number] 500mg Take 1 tablet by mouth in the morning for 30 days. [facility] empaglifloz in (JARDIANCE) 10 mg tablet 12-14 00:00: 00 01-14 04:59 :00 No [id number] 10mg Take 1 tablet by mouth in the morning for 30 days. [facility] furosemide 40 mg tablet 12-14 00:00: 00 01-09 00:00 :00 No [id number] 60mg Take 1.5 tablets by mouth every morning and evening for 60 days. [facility] glucagon (GLUCAGEN DIAGNOSTIC KIT) injection 1 mg 12-13 23:57: 51 Yes 1mg [facility] dextrose 50 % in water (D50W) injection 25 mL 12-13 23:57: 51 Yes 25mL [facility] ondansetron (ZOFRAN (PF)) injection 4 mg 12-13 23:57: 45 Yes 4mg [facility] morpHINE (2 mg/mL) injection 2 mg 12-13 23:57: 39 12-14 23:56 :39 No 2mg 2 mg, Slow IV Push, Q4HPRN, Starting on Thu12/14/23 at 1857, Until Thu12/15/23 at 1856, Routine, Pain (scale 7-10) [facility] HYDROcodone -acetaminop hen (NORCO 5) 5-325 mg tablet 1 tablet 12-13 23:57: 36 12-15 23:56 :36 No 1{tbl} 1 tablet, Oral, Q6HPRN, Starting on Thu12/14/23 at 1857, Until Thu12/16/23 at 1856, Routine, Pain (scale 4-6) [facility] acetaminoph en (TYLENOL) tablet 650 mg 12-13 23:57: 28 Yes 650mg 650 mg, Oral, Q6HPRN, Starting on Thu12/14/23 at 1857, Until Discontinu ed, Routine, Pain (scale 1-3), Temp > 38 C [facility] dicyclomine (BENTYL) tablet 20 mg 12-13 23:53: 34 Yes 20mg [facility] methylpredn isolone sod succ (SOLU-MEDRO L) injection 125 mg 12-13 23:00: 00 12-14 08:08 :57 No 125mg 125 mg, Intravenou s, Q6H, First dose on Thu12/14/23 at 1800, Until Discontinu ed, Routine [facility] ipratropium -albuteroL (DUONEB) 0.5 mg-3 mg(2.5 mg base)/3 mL nebulizer solution 3 mL 12-13 21:00: 00 Yes 3mL 3 mL, Inhalation , QID, First dose on Thu12/14/23 at 1600, Until Discontinu ed, Routine [facility] ondansetron (ZOFRAN (PF)) injection 4 mg 12-13 20:45: 00 12-13 19:40 :00 No 4mg 4 mg, Slow IV Push, ONCE, 1 dose, On Thu12/14/23 at 1545, Routine [facility] morpHINE (4 mg/mL) injection 4 mg 12-13 20:45: 00 12-13 19:41 :00 No 4mg 4 mg, Slow IV Push, ONCE, 1 dose, On Thu12/14/23 at 1545, STAT [facility] furosemide (LASIX) tablet 40 mg 12-03 14:00: 00 Yes 40mg 40 mg, Oral, DAILY, First dose (after last modificati on) on Thu12/04/23 at 0900, Until Discontinu ed, Routine [facility] mirtazapine (REMERON) tablet 15 mg 12-03 02:00: 00 Yes 15mg [facility] metoprolol succinate XL 25 mg 24 hr tablet 12-03 00:00: 00 Yes [id number] 12.5mg Take 0.5 tablets by mouth in the morning. [facility] Potassium Bicarb-Citr ic Acid (EFFER-K) effervescen t tablet 40 mEq 12-02 21:06: 00 12-02 23:09 :00 No 40meq 40 mEq, Oral, ONCE, 1 dose, On Thu12/03/23 at 1615, Routine [facility] metoprolol succinate XL (TOPROL XL) tablet 12.5 mg 12-02 16:00: 00 Yes 12.5mg 12.5 mg, Oral, DAILY, First dose on Thu12/03/23 at 1100, Until Discontinu ed, Routine [facility] sennosides (SENOKOT) tablet 8.6 mg 12-02 15:00: 00 Yes 8.6mg 8.6 mg, Oral, DAILY, First dose on Thu12/03/23 at 1000, Until Discontinu ed, Routine [facility] acetaminoph en (TYLENOL) tablet 650 mg 12-02 14:47: 07 Yes 650mg 650 mg, Oral, Q6HPRN, Starting on Thu12/03/23 at 0947, Until Discontinu ed, Routine, Pain (scale 1-3) [facility] ipratropium -albuteroL (DUONEB) 0.5 mg-3 mg(2.5 mg base)/3 mL nebulizer solution 3 mL 12-02 14:45: 00 Yes 3mL 3 mL, Inhalation , QID, First dose (after last modificati on) on Thu12/03/23 at 0945, Until Discontinu ed, Routine [facility] tamsulosin (FLOMAX) capsule 0.4 mg 12-02 14:00: 00 Yes .4mg 0.4 mg, Oral, DAILY, First dose on Thu12/03/23 at 0900, Until Discontinu ed, Routine [facility] DULoxetine (CYMBALTA) capsule 30 mg 12-02 14:00: 00 Yes 30mg 30 mg, Oral, DAILY, First dose on Thu12/03/23 at 0900, Until Discontinu ed, Routine [facility] digoxin (LANOXIN) tablet 125 mcg 12-02 14:00: 00 Yes 125ug 125 mcg, Oral, DAILY, First dose on Thu12/03/23 at 0900, Until Discontinu ed [facility] aspirin chewable tablet 81 mg 12-02 14:00: 00 Yes 81mg 81 mg, Oral, DAILY, First dose on Thu12/03/23 at 0900, Until Discontinu ed, Routine [facility] furosemide (LASIX) tablet 40 mg 12-02 14:00: 00 12-02 17:37 :33 No 40mg 40 mg, Oral, QAM+PM, First dose on Thu12/03/23 at 0900, Until Discontinu ed, Routine [facility] lacosamide (VIMPAT) tablet 100 mg 12-02 13:30: 00 Yes 100mg 100 mg, Oral, BID, First dose on Thu12/03/23 at 0830, Until Discontinu ed, Routine [facility] magnesium oxide (MAG-OX 400) tablet 400 mg 12-02 13:26: 00 12-02 14:24 :00 No 400mg 400 mg, Oral, ONCE, 1 dose, On Thu12/03/23 at 0830, Routine [facility] Potassium Bicarb-Citr ic Acid (EFFER-K) effervescen t tablet 40 mEq 12-02 13:19: 00 12-02 14:24 :00 No 40meq 40 mEq, Oral, ONCE, 1 dose, On Thu12/03/23 at 0830, Routine [facility] Sliding Scale Insulin - Lispro (HumaLOG) 12-02 13:00: 00 Yes Subcutaneo us, TID MEALS+HS, First dose on Thu12/03/23 at 0800, Until Discontinu ed, Routine [facility] gabapentin (NEURONTIN) capsule 100 mg 12-02 13:00: 00 Yes 100mg 100 mg, Oral, TID, First dose on Thu12/03/23 at 0800, Until Discontinu ed, Routine [facility] divalproex ER (DEPAKOTE ER) 24 hr tablet 1,000 mg 12-02 13:00: 00 Yes 1000mg 1,000 mg, Oral, Q12H, First dose on Thu12/03/23 at 0800, Until Discontinu ed, Routine [facility] cyclobenzap rine (FLEXERIL) tablet 5 mg 12-02 13:00: 00 Yes 5mg 5 mg, Oral, TID, First dose on Thu12/03/23 at 0800, Until Discontinu ed, Routine [facility] KCL (KLOR-CON M20) tablet 40 mEq 12-02 12:15: 00 12-02 14:24 :00 No 40meq 40 mEq, Oral, ONCE, 1 dose, On Arpita 12/03/23 at 0715, Routine [facility] KCL (KLOR-CON M20) tablet 20 mEq 12-02 04:00: 00 12-02 04:07 :00 No 20meq 20 mEq, Oral, ONCE, 1 dose, On Thu12/02/23 at 2300, Routine [facility] furosemide (LASIX) injection 40 mg 12-02 03:15: 00 12-02 02:36 :00 No 40mg 40 mg, Slow IV Push, ONCE, 1 dose, On Thu12/02/23 at 2215, Routine [facility] glucagon (GLUCAGEN DIAGNOSTIC KIT) injection 1 mg 12-02 02:54: 39 Yes 1mg 1 mg, Intramuscu lar, PRN, Starting on Thu12/02/23 at 2154, Until Discontinu ed, MICHAEL, Blood Glucose < or = 70 mg/dL and patient is NPO, unable to swallow or has mental changes. [facility] dextrose 50 % in water (D50W) injection 25 mL 12-02 02:54: 38 Yes 25mL 25 mL, Slow IV Push, PRN, Starting on Thu12/02/23 at 2154, Until Discontinu ed, MICHAEL, Blood Glucose < or = 70 mg/dL and patient is NPO, unable to swallow or has mental status changes. [facility] atorvastati n (LIPITOR) tablet 40 mg 12-02 02:00: 00 Yes 40mg 40 mg, Oral, QHS, First dose on Thu12/02/23 at 2100, Until Discontinu ed, Routine [facility] apixaban (ELIQUIS) tablet 5 mg 12-02 01:45: 00 02-28 00:59 :00 No [id number] 5mg 5 mg, Oral, BID, 176 doses, First dose on Thu12/02/23 at 2045, Last dose on Thu02/28/24 at 0800, Routine, Indication s: DVT/PE [facility] albuterol (PROVENTIL) 2.5 mg /3 mL (0.083 %) nebulizer solution 2.5 mg 12-02 01:40: 57 Yes 2.5mg [facility] ondansetron (ZOFRAN (PF)) injection 4 mg 12-02 01:02: 39 Yes 4mg 4 mg, Slow IV Push, Q6HPRN, Nausea and Vomiting (N/V), Starting on Thu12/02/23 at 2001, Doses of ondansetro n 16 mg and above need to be administer ed via IV piggyback. For Dose >=24mg ECG monitoring is advisable. [facility] lisinopriL 2.5 mg tablet 12-02 00:00: 00 Yes [id number] 2.5mg Take 1 tablet by mouth in the morning. [facility] acetaminoph en (OFIRMEV) IV piggyback 1,000 mg 12-01 22:15: 00 12-01 21:51 :00 No 1000mg 1,000 mg, IV Piggyback, at 400 mL/hr Administer over 15 Minutes, ONCE, 1 dose, On Thu12/02/23 at 1715, Routine, Is the patient strict NPO and unable to tolerate oral medication s? Yes [facility] iopamidol (ISOVUE 370-500 mL) injection 85 mL 12-01 19:15: 00 12-01 19:33 :00 No [id number] 85mL 85 mL, Intravenou s, ONCE, 1 dose, On Thu12/02/23 at 1415, Routine [facility] FENTanyl PF (SUBLIMAZE (PF)) injection 25 mcg 12-01 18:30: 00 12-01 19:38 :00 No 25ug 25 mcg, Slow IV Push, ONCE, 1 dose, On Thu12/02/23 at 1330, STAT [facility] NaCl 0.9% (NS) bolus infusion 1,000 mL 12-01 18:15: 00 12-01 21:00 :00 No 1000mL at 999 mL/hr, 1,000 mL, IV Infusion, ONCE, 1 dose, On Thu12/02/23 at 1315, STAT [facility] DULoxetine 30 mg capsule 11-28 00:00: 00 Yes [id number] 30mg Take 1 capsule by mouth in the morning. [facility] digoxin 125 mcg tablet 11-28 00:00: 00 Yes [id number] .125mg Take 1 tablet by mouth in the morning. [facility] tamsulosin 0.4 mg 24 hr capsule 11-28 00:00: 00 02-27 04:59 :00 No [id number] .4mg Take 1 capsule by mouth in the morning for 90 days. [facility] metoprolol succinate XL 50 mg 24 hr tablet 11-28 00:00: 00 12-02 00:00 :00 No [id number] 50mg Take 1 tablet by mouth in the morning. [facility] lisinopriL 5 mg tablet 11-28 00:00: 00 12-02 00:00 :00 No [id number] 5mg Take 1 tablet by mouth in the morning. [facility] spironolact one 25 mg tablet 11-28 00:00: 00 12-02 00:00 :00 No [id number] 50mg Take 2 tablets by mouth in the morning. [facility] metoprolol succinate XL (TOPROL XL) tablet 50 mg 11-27 14:00: 00 Yes 50mg 50 mg, Oral, DAILY, First dose (after last modificati on) on 11/28/23 at 0900, Until Discontinu ed, Routine [facility] KCL (KLOR-CON M20) tablet 40 mEq 11-27 12:30: 00 11-27 13:39 :00 No 40meq 40 mEq, Oral, ONCE, 1 dose, On 11/28/23 at 0730, Routine [facility] potassium chloride in water (KCL) 20 mEq/100 mL RTU IVPB 20 mEq 11-27 11:00: 00 11-27 13:40 :00 No 20meq 20 mEq, IV Piggyback, ONCE, 1 dose, On Thu11/28/23 at 0600, 100 mL [facility] clonazePAM (KLONOPIN) tablet 0.5 mg 11-27 02:45: 00 Yes .5mg 0.5 mg, Oral, QHS, First dose on Thu11/27/23 at 2145, Until Discontinu ed, Routine [facility] lacosamide (VIMPAT) tablet 100 mg 11-27 01:00: 00 Yes 100mg 100 mg, Oral, BID, First dose (after last modificati on) on Thu11/27/23 at 2000, Until Discontinu ed, Routine [facility] gabapentin 100 mg capsule 11-27 00:00: 00 Yes [id number] 100mg Take 1 capsule by mouth in the morning and 1 capsule at noon and 1 capsule in the evening. [facility] divalproex ER 500 mg 24 hr tablet 11-27 00:00: 00 04-03 00:00 :00 No [id number] 1000mg Take 2 tablets by mouth every 12 (twelve) hours. [facility] apixaban 5 mg tablet 11-27 00:00: 00 03-01 04:59 :00 No [id number] Take 2 tablets by mouth 2 (two) times daily for 3 days, THEN 1 tablet 2 (two) times daily for 90 days. Indication s: history of deep vein thrombosis [facility] furosemide 40 mg tablet 11-27 00:00: 00 12-14 00:00 :00 No [id number] 40mg Take 1 tablet by mouth every morning and evening. [facility] lacosamide (VIMPAT) 200 mg in NaCl 0.9% (NS) 50 mL piggyback 11-26 18:45: 00 11-26 23:04 :00 No 200mg 200 mg, IV Piggyback, ONCE, 1 dose, On Thu11/27/23 at 1345, Administer over 30 Minutes, 50 mL [facility] furosemide (LASIX) tablet 40 mg 11-26 14:00: 00 Yes 40mg 40 mg, Oral, QAM+PM, First dose on Thu11/27/23 at 0900, Until Discontinu ed, Routine [facility] divalproex ER (DEPAKOTE ER) 24 hr tablet 1,000 mg 11-26 13:00: 00 Yes 1000mg 1,000 mg, Oral, Q12H, First dose (after last modificati on) on Thu11/27/23 at 0800, Until Discontinu ed, Routine [facility] furosemide (LASIX) injection 40 mg 11-26 01:00: 00 11-26 01:57 :00 No 40mg 40 mg, Slow IV Push, BID, 1 dose, First dose (after last modificati on) on Thu11/26/23 at 1999, [facility] divalproex [facility] (DEPAKOTE ER) 24 hr tablet 1,250 mg 11-26 01:00: 00 11-26 02:38 :40 No 1250mg 1,250 mg, Oral, Q12H, First dose (after last modificati on) on Thu11/26/23 at 2000, Until Discontinu ed, Routine [facility] cyanocobala min (DODEX) injection 1,000 mcg 11-25 18:30: 00 11-25 19:31 :00 No 1000ug 1,000 mcg, Intramuscu lar, ONCE, 1 dose, On Thu11/26/23 at 1330, Routine [facility] thiamine (VITAMIN B1) 100 mg in NaCl 0.9% (NS) piggyback 11-25 18:00: 00 11-30 13:59 :00 No 100mg IV Piggyback, DAILY, 5 doses, First dose on Thu11/26/23 at 1300, Last dose on Thu11/30/23 at 0900, 50 mL [facility] digoxin (LANOXIN) tablet 125 mcg 11-25 16:30: 00 Yes 125ug 125 mcg, Oral, DAILY, First dose on Thu11/26/23 at 1130, Until Discontinu ed, Routine [facility] metoprolol succinate XL (TOPROL XL) tablet 25 mg 11-25 16:15: 00 11-27 13:09 :49 No 25mg 25 mg, Oral, DAILY, First dose on Thu11/26/23 at 1115, Until Discontinu ed, Routine [facility] apixaban (ELIQUIS) tablet 10 mg 11-25 01:00: [...] Routine, Indication s: DVT/PE [Order 2 End] [facility] furosemide (LASIX) injection 40 mg 11-25 01:00: 00 11-25 16:08 :20 No 40mg 40 mg, Slow IV Push, BID, First dose (after last modificati on) on Thu11/25/23 at 1999, Until Discontinu ed, Routine [facility] spironolact one (ALDACTONE) tablet 12.5 mg 11-24 21:00: 00 Yes 12.5mg 12.5 mg, Oral, DAILY, First dose on Thu11/25/23 at 1600, Until Discontinu ed, Routine [facility] lisinopriL (PRINIVIL,Z ESTRIL) tablet 5 mg 11-24 21:00: 00 Yes 5mg 5 mg, Oral, DAILY, First dose on Thu11/25/23 at 1600, Until Discontinu ed, Routine [facility] apixaban (ELIQUIS) tablet 5 mg 4-0 08 16:30: 00 11-24 16:18 :00 No 5mg 5 mg, Oral, ONCE, 1 dose, On Thu11/25/23 at 1130, Routine, Indication s: DVT/PE [facility] apixaban (ELIQUIS) tablet 5 mg 4-0 08 14:00: 00 11-24 15:40 :42 No 5mg 5 mg, Oral, BID, 11 doses, First dose (after last modificati on) on Thu11/25/23 at 0900, Last dose on Thu11/30/23 at 0800, Routine, Indication s: DVT/PE [facility] divalproex ER (DEPAKOTE ER) 24 hr tablet 1,000 mg 2023-11-24 13:00: 00 11-25 17:41 :19 No 1000mg 1,000 mg, Oral, Q12H, First dose (after last modificati on) on Thu11/25/23 at 0800, Until Discontinu ed, Routine [facility] ondansetron (ZOFRAN (PF)) injection 4 mg 2023-11-24 03:45: 00 11-24 02:49 :00 No 4mg 4 mg, Slow IV Push, ONCE, On Thu11/24/23 at 2245, For 1 dose, Doses of ondansetro n 16 mg and above need to be administer ed via IV piggyback. For Dose >=24mg ECG monitoring is advisable. [facility] divalproex (DEPAKOTE) delayed release tablet 500 mg 2023-0 11-24 03:45: 00 11-24 04:49 :00 No 500mg 500 mg, Oral, ONCE, 1 dose, On Thu11/24/23 at 2245, Routine [facility] nitroglycer in (NITROSTAT) sublingual tablet 0.4 mg 2023-0 11-24 02:36: 01 Yes .4mg 0.4 mg, Sublingual , Q5MIN PRN, Starting on Thu11/24/23 at 2136, Until Discontinu ed, Routine, Chest pain [facility] nystatin (NILSTAT) 100,000 unit/mL suspension 500,000 Units 11-24 01:15: 00 11-26 20:18 :35 No 5mL 500,000 Units (5 mL), Oral, QID, First dose on Thu11/24/23 at 2015, Until Discontinu ed, Routine [facility] acetaminoph en-codeine (TYLENOL #3) 300-30 mg tablet 1 tablet 11-24 01:07: 37 Yes 1{tbl} 1 tablet, Oral, Q6HPRN, Starting on Thu11/24/23 at 2006, Until Discontinu ed, Routine, Pain (scale 4-6) [facility] iopamidol (ISOVUE 370-500 mL) injection 100 mL 11-23 23:15: 00 11-23 22:15 :00 No [id number] 100mL 100 mL, Intravenou s, ONCE, 1 dose, On Thu11/24/23 at 1815, Routine [facility] milrinone in 5 % dextrose (PRIMACOR) 20 mg/100 mL (200 mcg/mL) infusion RTU 11-23 20:45: 00 11-24 18:50 :54 No .25ug/k g/min 0.25 mcg/kg/min ?94.5 kg (7.0875 mL/hr, rounded to 7.09 mL/hr), IV Infusion, CONTINUOUS , Starting on Thu11/24/23 at 1545, 1. Dose to be adjusted by physician or provider. 2. Notify MD if MAP < 65 mmHG. [facility] polyethylen e glycol 3350 powder 17 g 11-23 19:15: 00 Yes 17g 17 g, Oral, DAILY, First dose on Thu11/24/23 at 1415, Until Discontinu ed, Routine [facility] ipratropium -albuteroL (DUONEB) 0.5 mg-3 mg(2.5 mg base)/3 mL nebulizer solution 3 mL 11-23 19:00: 00 Yes 3mL 3 mL, Inhalation , TID, First dose (after last modificati on) on Thu11/24/23 at 1400, Until Discontinu ed, Routine [facility] ondansetron (ZOFRAN (PF)) injection 4 mg 11-23 17:16: 00 11-23 17:24 :00 No 4mg 4 mg, Slow IV Push, ONCE, On Thu11/24/23 at 1230, For 1 dose, Doses of ondansetro n 16 mg and above need to be administer ed via IV piggyback. For Dose >=24mg ECG monitoring is advisable. [facility] apixaban (ELIQUIS) tablet 10 mg 11-23 15:45: 00 11-24 13:38 :20 No 10mg 10 mg, Oral, BID, 14 doses, First dose on Thu11/24/23 at 1045, Last dose on Thu11/30/23 at 2000, Routine, Indication s: DVT/PE [facility] milrinone in 5 % dextrose (PRIMACOR) 20 mg/100 mL (200 mcg/mL) infusion RTU 11-23 15:45: 00 11-23 20:33 :33 No .125ug/ kg/min 0.125 mcg/kg/min ?94.5 kg (3.5438 mL/hr, rounded to 3.54 mL/hr), IV Infusion, CONTINUOUS , Starting on Thu11/24/23 at 1045, 1. Dose to be adjusted by physician or provider. 2. Notify MD if MAP < 65 mmHG. [facility] HYDROcodone -acetaminop hen (NORCO 5) 5-325 mg tablet 1 tablet 11-23 14:28: 00 11-23 15:37 :00 No 1{tbl} 1 tablet, Oral, ONCE, 1 dose, On Thu11/24/23 at 0930, Routine [facility] hydrALAZINE (APRESOLINE ) tablet 10 mg 11-23 12:30: 00 11-25 13:28 :25 No 10mg 10 mg, Oral, Q8H, First dose on Thu11/24/23 at 0730, Until Discontinu ed, Routine [facility] iohexoL (OMNIPAQUE 180-20 mL) injection 11-22 20:31: 56 11-22 20:32 :10 No ONCE INTRA PROCEDURE, Starting on Thu11/23/23 at 1531, Until Thu11/23/23 at 1532, Routine, CV Intraproce dure [facility] nitroglycer in (TRIDIL) 2 mg in 10 mL D5W for Cardiac Cath 11-22 19:32: 38 11-22 20:32 :10 No ONCE INTRA PROCEDURE, Starting on Thu11/23/23 at 1432, Until Thu11/23/23 at 1532, Routine, CV Intraproce dure [facility] heparin 1,000 unit/mL injection 11-22 19:31: 28 11-22 20:32 :10 No ONCE INTRA PROCEDURE, Starting on Thu11/23/23 at 1431, Until Thu11/23/23 at 1532, Routine, CV Intraproce dure [facility] midazolam (VERSED) injection 11-22 19:24: 54 11-22 20:32 :10 No ONCE INTRA PROCEDURE, Starting on Thu11/23/23 at 1424, Until Thu11/23/23 at 1532, Routine, CV Intraproce dure [facility] FENTanyl PF (SUBLIMAZE (PF)) injection 11-22 19:21: 00 11-22 20:32 :10 No ONCE INTRA PROCEDURE, Starting on Thu11/23/23 at 1421, Until Thu11/23/23 at 1532, Routine, CV Intraproce dure [facility] lidocaine 1% (PF) (XYLOCAINE) injection 11-22 19:20: 00 11-22 20:32 :10 No ONCE INTRA PROCEDURE, Starting on Thu11/23/23 at 1420, Until Thu11/23/23 at 1532, Routine, CV Intraproce dure [facility] furosemide 20 mg tablet 11-22 15:47: 27 11-27 00:00 :00 No 20mg Take 1 tablet by mouth every morning and evening. [facility] milrinone in 5 % dextrose (PRIMACOR) 20 mg/100 mL (200 mcg/mL) infusion RTU 11-22 15:45: 00 11-23 15:32 :54 No .25ug/k g/min 0.25 mcg/kg/min ?94.5 kg (7.0875 mL/hr, rounded to 7.09 mL/hr), IV Infusion, CONTINUOUS , Starting on Thu11/23/23 at 1045, 1. Dose to be adjusted by physician or provider. 2. Notify MD if MAP < 65 mmHG. [facility] DULoxetine (CYMBALTA) capsule 30 mg 11-22 14:00: 00 11-27 00:00 :00 No 30mg 30 mg, Oral, DAILY, First dose on Thu11/23/23 at 0900, Until Discontinu ed, Routine [facility] magnesium oxide (MAG-OX 400) tablet 400 mg 11-22 13:45: 00 11-22 14:00 :00 No 400mg 400 mg, Oral, ONCE, 1 dose, On Thu11/23/23 at 0845, Routine [facility] hydrOXYzine (ATARAX) tablet 50 mg 11-22 13:42: 15 Yes 50mg 50 mg, Oral, Q8HPRN, Starting on Thu11/23/23 at 0842, Until Discontinu ed, Routine, Anxiety [facility] KCL (KLOR-CON M20) tablet 40 mEq 11-22 10:45: 00 11-22 10:20 :00 No 40meq 40 mEq, Oral, ONCE, 1 dose, On Thu11/23/23 at 0545, Routine [facility] mirtazapine (REMERON) tablet 15 mg 11-22 02:00: 00 Yes 15mg 15 mg, Oral, QHS, First dose on Thu11/22/23 at 2100, Until Discontinu ed, Routine [facility] atorvastati n (LIPITOR) tablet 40 mg 11-22 02:00: 00 11-25 16:05 :43 No 40mg 40 mg, Oral, QHS, First dose on Thu11/22/23 at 2100, Until Discontinu ed, Routine [facility] divalproex (DEPAKOTE) delayed release tablet 500 mg 11-22 01:00: 00 11-23 12:27 :34 No 500mg 500 mg, Oral, BID, First dose on 11/22/23 at 2000, Until Discontinu ed, Routine [facility] milrinone in 5 % dextrose (PRIMACOR) 20 mg/100 mL (200 mcg/mL) infusion RTU 11-21 19:30: 00 11-22 15:38 :58 No .125ug/ kg/min 0.125 mcg/kg/min ?94.5 kg (3.5438 mL/hr, rounded to 3.54 mL/hr), IV Infusion, CONTINUOUS , Starting on 11/22/23 at 1430, 1. Dose to be adjusted by physician or provider. 2. Notify MD if MAP < 65 mmHG. [facility] diazePAM (VALIUM) injection 2 mg 11-21 19:28: 00 11-21 20:15 :00 No 2mg 2 mg, Intravenou s, ONCE, 1 dose, On 11/22/23 at 1430, Routine [facility] gabapentin (NEURONTIN) capsule 100 mg 11-21 19:00: 00 Yes 100mg 100 mg, Oral, TID, First dose on Thu11/22/23 at 1400, Until Discontinu ed, Routine [facility] furosemide (LASIX) injection 40 mg 11-21 19:00: 00 11-24 18:54 :28 No 40mg 40 mg, Slow IV Push, TID, First dose on Thu11/22/23 at 1400, Until Discontinu ed, Routine [facility] ondansetron (ZOFRAN-ODT ) disintegrat ing tablet 4 mg 11-21 18:45: 00 11-21 18:25 :00 No 4mg 4 mg, Oral, ONCE, 1 dose, On 11/22/23 at 1345, [facility] per[facility] lipid microsphere s (DEFINITY) injection 2 mL 11-21 16:45: 00 11-21 16:45 :00 No [id number] 2mL 2 mL, IV Push, ONCE, 1 dose, On 11/22/23 at 1145, Routine [facility] furosemide (LASIX) injection 40 mg 11-21 14:15: 00 11-21 18:23 :20 No 40mg 40 mg, Slow IV Push, BID, 2 doses, First dose on 11/22/23 at 0915, Last dose on 11/22/23 at 2000, Routine [facility] losartan (COZAAR) tablet 25 mg 11-21 14:15: 00 11-21 20:14 :04 No 25mg 25 mg, Oral, DAILY, First dose on 11/22/23 at 0915, Until Discontinu ed, Routine [facility] tamsulosin (FLOMAX) capsule 0.4 mg 11-21 14:00: 00 Yes .4mg 0.4 mg, Oral, DAILY, First dose on 11/22/23 at 0900, Until Discontinu ed, Routine [facility] pantoprazol e (PROTONIX) EC tablet 40 mg 11-21 14:00: 00 Yes 40mg 40 mg, Oral, DAILY, First dose on 11/22/23 at 0900, Until Discontinu ed, Routine [facility] aspirin chewable tablet 81 mg 11-21 14:00: 00 Yes 81mg 81 mg, Oral, DAILY, First dose on 11/22/23 at 0900, Until Discontinu ed, Routine [facility] predniSONE (DELTASONE) tablet 40 mg 11-21 14:00: 00 11-25 13:14 :00 No 40mg 40 mg, Oral, DAILY, 5 doses, First dose on 11/22/23 at 0900, Last dose on Arpita 11/26/23 at 0900, Routine [facility] iopamidol (ISOVUE 370-500 mL) injection 80 mL 11-21 14:00: 00 11-21 14:00 :00 No [id number] 80mL 80 mL, Intravenou s, ONCE, 1 dose, On 11/22/23 at 0900, Routine [facility] Sliding Scale Insulin - Lispro (HumaLOG) 11-21 13:00: 00 Yes Subcutaneo us, TID MEALS+HS, First dose on 11/22/23 at 0800, Until Discontinu ed, Routine [facility] divalproex ER (DEPAKOTE ER) 24 [...] 0400, Until Discontinu ed, Routine [facility] furosemide (LASIX) injection 40 mg 11-21 07:45: 00 11-21 07:15 :00 No 40mg 40 mg, Slow IV Push, ONCE, 1 dose, On Thu11/22/23 at 0245, Routine [facility] sodium chloride 7% (HYPER-IRVIN) nebulizer solution 4 mL 11-21 07:00: 00 11-23 14:32 :09 No 4mL 4 mL, Inhalation , DAILY, First dose on 11/22/23 at 0200, Until Discontinu ed, Routine [facility] morpHINE (2 mg/mL) injection 2 mg 11-21 06:52: 11 Yes 2mg 2 mg, Slow IV Push, Q4HPRN, Starting on Thu11/22/23 at 0152, Until Discontinu ed, Routine, Pain (scale 7-10) [facility] heparin 25,000 Units/250 mL (Premixed Bag) in [...] ant therapy. Range, Dosing and Testing: FOR [facility], [facility], AND [facility] ONLY - aPTT < 35: Bolus [...] once therapeuti c levels are reached. FOR [facility] ONLY - aPTT < 40: Bolus [...] ADJUST INITIAL BOLUS OR INITIAL INFUSION RATE. [facility] heparin (1,000 unit/mL, 10 mL vial) for Rebolusing 11-21 06:43: 39 11-23 15:32 :54 No 3000U FOR REBOLUSING , Starting on Thu11/22/23 at 0143, Until 11/24/23 at 1032, Routine, Dosing based on aPPT testing parameters (refer to continuous heparin drip order). [facility] glucagon (GLUCAGEN DIAGNOSTIC KIT) injection 1 mg 11-21 06:36: 57 Yes 1mg [facility] dextrose 50 % in water (D50W) injection 25 mL 11-21 06:36: 57 Yes 25mL [facility] acetaminoph en (TYLENOL) tablet 650 mg 11-21 06:36: 44 Yes 650mg 650 mg, Oral, Q6HPRN, Starting on 11/22/23 at 0136, Until Discontinu ed, Routine, Pain (scale 1-3) [facility] ondansetron (ZOFRAN (PF)) injection 4 mg 11-21 04:45: 00 11-21 03:46 :00 No 4mg 4 mg, Slow IV Push, ONCE, 1 dose, On 11/21/23 at 2345, MICHAEL [facility] acetaminoph en (TYLENOL) tablet 975 mg 11-21 04:45: 00 11-21 03:44 :00 No 975mg 975 mg, Oral, ONCE, 1 dose, On 11/21/23 at 2345, [facility] HEPARIN SODIUM (PORCINE) 1,000 UNIT/ML BOLUS ACS ORDER SET 11-21 04:15: 00 11-21 04:33 :00 No 4000U 4,000 Units, IV Push, ONCE, 1 dose, On 11/21/23 at 2315, [facility] morpHINE (4 mg/mL) injection 4 mg 11-21 04:15: 00 11-21 04:27 :00 No 4mg 4 mg, Slow IV Push, ONCE, 1 dose, On 11/21/23 at 2315, STAT [facility] methylpredn isolone sod succ (SOLU-MEDRO L) injection 125 mg 11-21 04:15: 00 11-21 03:24 :00 No 125mg 125 mg, Slow IV Push, ONCE NOW, 1 dose, On 11/21/23 at 2315, [facility] heparin 25,000 Units/250 mL (Premixed [...] ant therapy. Range, Dosing and Testing: FOR [facility], [facility], AND [facility] ONLY - aPTT < 35: Bolus [...] ADJUST INITIAL BOLUS OR INITIAL INFUSION RATE. [facility] ipratropium -albuteroL (DUONEB) 0.5 mg-3 mg(2.5 mg base)/3 mL nebulizer solution 3 mL 11-21 04:00: 00 11-21 02:51 :00 No 3mL 3 mL, Inhalation , ONCE, 1 dose, On 11/21/23 at 2300, MICHAEL [facility] ipratropium -albuteroL (DUONEB) 0.5 mg-3 mg(2.5 mg base)/3 mL nebulizer solution 3 mL 11-21 03:30: 00 11-21 02:37 :00 No 3mL 3 mL, Inhalation , ONCE, 1 dose, [facility] 11/21/23 at 2230[facility] 0.9% (NS) bolus infusion 500 mL 11-21 03:15: 00 11-21 04:14 :00 No 500mL at 999 mL/hr, 500 mL, IV Infusion, ONCE, 1 dose, On 11/21/23 at 2215, STAT [facility] mirtazapine 15 mg tablet 09-30 00:00: 00 Yes 15mg Take 1 tablet by mouth at bedtime. [facility] Metformin HCl 500 MG oral Tablet 09-29 14:28: 11 Yes 500mg Take 1 tablet (500 mg total) by mouth daily (with breakfast) . [facility] gonz[facility] Ibuprofen (MOTRIN) 200 MG oral Tablet 09-29 14:27: 32 09-29 00:00 :00 No 200mg Q.[id number] 3D Take 1 tablet (200 mg total) by mouth every 8 hours as needed for pain. [facility] Fluticasone -Umeclidin- Vilant (Trelegy Ellipta) 100-62.5-25 MCG/ACT inhalation AEROSOL POWDER, BREATH ACTIVATED 09-29 00:00: 00 Yes [id number] 1{puff} Inhale 1 puff into the lungs daily. [facility]thia gonz[facility] Carvedilol 12.5 MG oral Tablet 09-29 00:00: 00 Yes [id number] 12.5mg Take 1 tablet (12.5 mg total) by mouth in the morning and 1 tablet (12.5 mg total) in the evening. Take with meals. [facility]thia gonzalez Duloxetine HCl [address] Particles 09-29 00:00: 00 Yes [id number] 20mg Take 1 capsule (20 mg total) by mouth daily. [facility] Acetaminoph en-Codeine (TYLENOL/CO DEINE #3) 300-30 MG oral Tablet 09-29 00:00: 00 Yes [id number] 1{tbl} Q.25D Take 1 tablet by mouth every 6 hours as needed for pain. [facility] gonz[facility] Clonazepam 1 MG oral Tablet 09-29 00:00: 00 Yes [id number] 1mg QD Take 1 tablet (1 mg total) by mouth nightly as needed for anxiety. [facility]thia gonzalez spironolact one 25 mg tablet 09-29 00:00: 00 11-27 00:00 :00 No 25mg Take 1 tablet by mouth in the morning and 1 tablet in the evening. [facility] metFORMIN 500 mg tablet 09-28 00:00: 00 12-14 00:00 :00 No 500mg Take 1 tablet by mouth in the morning. [facility] Carvedilol 12.5 MG oral Tablet 09-28 [...] gonzalez Ipratropium (ATROVENT) 0.02 % inhalation Solution 2024-0 3-05 00:00: 00 09-29 00:00 :00 No 500ug [...] MG oral Tablet 09-11 00:00: 00 Yes [id number] 15mg QD Take 1 tablet (15 mg total) by mouth nightly as needed. [facility] gonzalez Acetaminoph en-Codeine (TYLENOL/CO DEINE #3) 300-30 MG oral Tablet 09-11 00:00: 00 09-29 00:00 :00 No [id number] 1{tbl} Q.25D Take 1 tablet by mouth every 6 hours as needed for pain. [facility]thia gonzalez DULoxetine (CYMBALTA) 60 MG capsule 09-09 00:00: 00 10-08 23:59 :00 No 60mg QD Take 1 capsule (60 mg total) by mouth daily for 30 days. [facility] varenicline (CHANTIX) 1 mg tablet 09-08 10:51: 03 Yes 1mg Q.5D Take 1 tablet (1 mg total) by mouth 2 (two) times daily Give with meals and with a full glass of water.. [facility] atorvastati n (LIPITOR) 20 MG tablet 2024-0 2-20 10:51: 03 Yes 20mg QD Take 1 tablet (20 mg total) by mouth daily. [facility] Cyanocobala min (Vitamin B-12) 1000 MCG oral Tablet 09-08 00:00: 00 10-08 04:59 :00 No 1000ug Take 1 tablet (1,000 mcg total) by mouth daily. Cynthia gonzalez lidocaine (LIDODERM) 4 % patch 09-08 00:00: 00 10-07 23:59 :00 No 3{patch } Q24H Place 3 patches onto the skin daily for 30 days. [facility] metoprolol succinate (TOPROL-XL) 25 MG 24 hr tablet 09-07 16:47: 05 09-07 00:00 :00 No 25mg QD Take 1 tablet (25 mg total) by mouth daily. [facility] albuterol HFA (VENTOLIN HFA) 90 mcg/actuati on inhaler 09-07 16:47: 05 09-07 00:00 :00 No 1{puff} Inhale 1 puff by mouth via inhaler every 6 (six) hours as needed for Wheezing. [facility] fluticasone -umeclidin- vilanter (Trelegy Ellipta) 200-62.5-25 mcg DsDv 09-07 16:47: 05 09-07 00:00 :00 No QD Inhale by mouth via inhaler daily. [facility] Albuterol HFA 108 (90 Base) MCG/ACT [...] total) by mouth daily for 30 days. [facility] polyethylen e glycol (GLYCOLAX) 17 gram packet 09-07 00:00: 00 10-06 23:59 :00 No 17g Q.5D Take 17 g by mouth 2 (two) times daily for 30 days. [facility] gabapentin (NEURONTIN) 400 MG capsule 09-07 00:00: 00 10-06 23:59 :00 No 400mg Q.[id number] 3D Take 1 capsule (400 mg total) by mouth 3 (three) times daily for 30 days. [facility] furosemide (LASIX) 20 MG tablet 09-07 00:00: 00 10-06 23:59 :00 No 20mg QD Take 1 tablet (20 mg total) by mouth daily for 30 days. [facility] fluticasone -umeclidin- vilanter (Trelegy Ellipta) 200-62.5-25 mcg DsDv 09-07 00:00: 00 10-06 23:59 :00 No 1{inhal ation} QD Inhale 1 Inhalation by mouth via inhaler daily for 30 days. [facility] metoprolol succinate (TOPROL-XL) 25 MG 24 hr tablet 09-07 00:00: 00 10-06 23:59 :00 No 25mg QD Take 1 tablet (25 mg total) by mouth daily for 30 days. [facility] lacosamide (VIMPAT) 100 mg in NaCl 0.9% (NS) 50 mL piggyback 08-12 21:15: 00 08-12 21:23 :00 No 100mg 100 mg, IV Piggyback, ONCE, 1 dose, On Thu08/12/23 at 1515, Administer over 30 Minutes, 50 mL
Facu lty member approving Restricted medication : MJ BRYAN shawn [facility] Dicyclomine HCl 20 MG oral [...] total) by mouth daily for 5 days. [facility] varenicline (CHANTIX) 1 mg tablet 2022-07 19:45: 32 Yes 1mg Q.5D Take 1 tablet (1 mg total) by mouth 2 (two) times daily Give with meals and with a full glass of water.. [facility] atorvastati n (LIPITOR) 20 MG tablet 2022-07 19:45: 32 Yes 20mg QD Take 1 tablet (20 mg total) by mouth daily. [facility] metoprolol succinate (TOPROL-XL) 25 MG 24 hr tablet 2022-07 19:45: 32 09-07 00:00 :00 No 25mg QD Take 1 tablet (25 mg total) by mouth daily. [facility] albuterol HFA (VENTOLIN HFA) 90 mcg/actuati on inhaler 2022-07 19:45: 32 09-07 00:00 :00 No 1{puff} Inhale 1 puff by mouth via inhaler every 6 (six) hours as needed for Wheezing. [facility] fluticasone -umeclidin- vilanter (Trelegy Ellipta) 200-62.5-25 mcg DsDv 2022-07 19:45: 32 09-07 00:00 :00 No QD Inhale by mouth via inhaler daily. [facility] acetaminoph en-codeine (TYLENOL #3) 300-30 mg per tablet 2022-07 18:02: 00 06-16 00:00 :00 No 1{tbl} Take 1 tablet by mouth every 4 (four) hours as needed for Pain. [facility] DULoxetine (CYMBALTA) 30 MG capsule 2022-07 00:00: 00 09-08 00:00 :00 No 30mg QD Take 1 capsule (30 mg total) by mouth daily for 90 days. [facility] metroNIDAZO LE (FLAGYL) 500 MG tablet 2022-07 00:00: 00 07-04 23:59 :00 No 500mg Take 1 tablet (500 mg total) by mouth every 8 (eight) hours for 18 days. [facility] ciprofloxac in HCl (CIPRO) 500 MG tablet 2022-07 00:00: 00 07-04 23:59 :00 No 500mg Q.5D Take 1 tablet (500 mg total) by mouth 2 (two) times daily for 18 days. [facility] cyclobenzap rine (FLEXERIL) 10 MG tablet 2022-07 00:00: 00 06-26 23:59 :00 No 10mg Q.[id number] 3D Take 1 tablet (10 mg total) by mouth 3 (three) times daily for 10 days. [facility] oxyCODONE (OXY-IR) 10 mg tablet 2022-07 00:00: 00 06-26 23:59 :00 No 10mg Take 1 tablet (10 mg total) by mouth every 8 (eight) hours as needed for up to 10 days. Max Daily Amount: 30 mg [facility] nystatin (MYCOSTATIN ) 100,000 unit/mL suspension 2022-07 00:00: 00 06-21 23:59 :00 No [id number] Q.25D Take 5 mLs (500,000 Units total) by mouth 4 (four) times daily for 5 days. [facility] dexAMETHaso ne (DECADRON) 2 MG tablet 2022-07 00:00: 00 06-08 23:59 :00 No 1mg Take 0.5 tablets (1 mg total) by mouth 2 (two) times daily with breakfast and dinner for 2 days. [facility] metoprolol succinate (TOPROL-XL) 25 MG 24 hr tablet 2022-07 17:44: 21 Yes 25mg QD Take 1 tablet (25 mg total) by mouth daily. [facility] varenicline (CHANTIX) 1 mg tablet 2022-07 17:44: 21 Yes 1mg Q.5D Take 1 tablet (1 mg total) by mouth 2 (two) times daily Give with meals and with a full glass of water.. [facility] albuterol HFA (VENTOLIN HFA) 90 mcg/actuati on inhaler 2022-07 17:44: 21 Yes 1{puff} Inhale 1 puff by mouth via inhaler every 6 (six) hours as needed for Wheezing. [facility] fluticasone -umeclidin- vilanter (Trelegy Ellipta) 200-62.5-25 mcg DsDv 2022-07 17:44: 21 Yes QD Inhale by mouth via inhaler daily. [facility] atorvastati n (LIPITOR) 20 MG tablet 2022-07 17:44: 21 Yes 20mg QD Take 1 tablet (20 mg total) by mouth daily. [facility] acetaminoph en-codeine (TYLENOL #3) 300-30 mg per tablet 2022-07 17:44: 21 Yes 1{tbl} Take 1 tablet by mouth every 4 (four) hours as needed for Pain. [facility] Naloxone (NARCAN) 4 MG/0.1ML nasal Liquid 2022-07 00:00: 00 Yes 4mg 0.1 mL (4 mg total) as needed. Cynthia gonzalez senna (SENOKOT) 8.6 mg tablet 2022-07 00:00: 00 06-18 23:59 :00 No 17.2mg Q.5D Take 2 tablets (17.2 mg total) by mouth 2 (two) times daily for 14 days. [facility] cyclobenzap rine (FLEXERIL) 10 MG tablet 2022-07 00:00: 00 06-16 00:00 :00 No 10mg Q.[id number] 3D Take 1 tablet (10 mg total) by mouth 3 (three) times daily for 10 days. [facility] methocarbam oL (ROBAXIN) 500 MG tablet 2022-07 00:00: 00 06-16 00:00 :00 No 500mg Q.25D Take 1 tablet (500 mg total) by mouth 4 (four) times daily for 10 days. [facility] lactulose (CHRONULAC) 20 gram/30 mL solution 2022-07 00:00: 00 06-11 23:59 :00 No 20g Q.[id number] 3D Take 30 mLs (20 g total) by mouth 3 (three) times daily for 7 days. [facility] ondansetron (ZOFRAN-ODT ) 4 MG disintegrat ing tablet 2022-07 00:00: 00 06-11 23:59 :00 No 4mg Take 1 tablet (4 mg total) by mouth every 6 (six) hours as needed for up to 7 days. [facility] metoprolol succinate (TOPROL-XL) 25 MG 24 hr tablet 2022-07 15:23: 22 Yes 25mg QD Take 1 tablet (25 mg total) by mouth daily. [facility] varenicline (CHANTIX) 1 mg tablet 2022-07 15:23: 22 Yes 1mg Q.5D Take 1 tablet (1 mg total) by mouth 2 (two) times daily Give with meals and with a full glass of water.. [facility] albuterol HFA (VENTOLIN HFA) 90 mcg/actuati on inhaler 2022-07 15:23: 22 Yes 1{puff} Inhale 1 puff by mouth via inhaler every 6 (six) hours as needed for Wheezing. [facility] fluticasone -umeclidin- vilanter (Trelegy Ellipta) 200-62.5-25 mcg DsDv 2022-07 15:23: 22 Yes QD Inhale by mouth via inhaler daily. [facility] atorvastati n (LIPITOR) 20 MG tablet 2022-07 15:23: 22 Yes 20mg QD Take 1 tablet (20 mg total) by mouth daily. [facility] acetaminoph en-codeine (TYLENOL #3) 300-30 mg per tablet 2022-07 15:23: 22 Yes 1{tbl} Take 1 tablet by mouth every 4 (four) hours as needed for Pain. [facility] acetaminoph en-codeine (TYLENOL #3) 300-30 mg per tablet 2022-07 09:42: 02 Yes 1{tbl} Take 1 tablet by mouth every 4 (four) hours as needed for Pain. Max Daily Amount: 6 tablets [facility] varenicline (CHANTIX) 1 mg tablet 2022-07 09:40: 04 Yes 1mg Q.5D Take 1 tablet (1 mg total) by mouth 2 (two) times daily Give with meals and with a full glass of water.. [facility] albuterol HFA (VENTOLIN HFA) 90 mcg/actuati on inhaler 2022-07 09:40: 04 Yes 1{puff} Inhale 1 puff by mouth via inhaler every 6 (six) hours as needed for Wheezing. [facility] fluticasone -umeclidin- vilanter (Trelegy Ellipta) 200-62.5-25 mcg DsDv 2022-07 09:40: 04 Yes QD Inhale by mouth via inhaler daily. [facility] atorvastati n (LIPITOR) 20 MG tablet 2022-07 09:40: 04 Yes 20mg QD Take 1 tablet (20 mg total) by mouth daily. [facility] metoprolol succinate (TOPROL-XL) 25 MG 24 hr tablet 2022-07 09:13: 28 Yes 25mg QD Take 1 tablet (25 mg total) by mouth daily. [facility] Atorvastati n Calcium 20 MG oral Tablet 2022-07- 00:00: 00 Yes 20mg Take 1 tablet (20 mg total) by mouth daily. Cynthia gonzalez metoprolol succinate XL 25 mg 24 hr tablet 2022-07 00:00: 00 11-27 00:00 :00 No 25mg Take 1 tablet by mouth every morning. [facility] Nitroglycer in 0.4 MG sublingual SL [...] tablet (20 mg total) by mouth daily. [facility] aspirin 81 MG EC tablet 04-03 00:00: 00 07-02 23:59 :00 No 81mg QD Take 1 tablet (81 mg total) by mouth daily for 90 days. [facility] divalproex (DEPAKOTE) 500 MG EC tablet 04-03 00:00: 00 07-02 23:59 :00 No 500mg Q.5D Take 1 tablet (500 mg total) by mouth 2 (two) times daily for 90 days. [facility] lisinopriL (PRINIVIL,Z ESTRIL) 5 MG tablet 04-03 00:00: 00 05-28 00:00 :00 No 5mg QD Take 1 tablet (5 mg total) by mouth daily. [facility] clonazePAM (KlonoPIN) 0.5 MG tablet 04-03 00:00: 00 05-03 23:59 :00 No .25mg Take 0.5 tablets (0.25 mg total) by mouth 2 (two) times daily as needed for Anxiety for up to 30 days. Max Daily Amount: 0.5 mg [facility] HYDROcodone -acetaminop hen (NORCO 10-325) 10-325 mg per tablet 04-03 00:00: 00 04-13 23:59 :00 No 1{tbl} Take 1 tablet by mouth every 6 (six) hours as needed for up to 10 days. Max Daily Amount: 4 tablets [facility] methocarbam oL (ROBAXIN) 500 MG tablet 04-03 00:00: 00 04-13 23:59 :00 No 500mg Q.25D Take 1 tablet (500 mg total) by mouth 4 (four) times daily for 10 days. [facility] gabapentin (NEURONTIN) 300 MG capsule 04-02 00:00: 00 04-03 00:00 :00 No 300mg [id number] 3D Take 1 capsule (300 mg total) by mouth 3 (three) times daily for 90 days. [facility] divalproex (DEPAKOTE) 500 MG EC tablet 04-02 00:00: 00 04-03 00:00 :00 No 500mg Q.5D Take 1 tablet (500 mg total) by mouth 2 (two) times daily for 90 days. [facility] clonazePAM (KlonoPIN) 0.5 MG tablet 04-02 00:00: 00 04-03 00:00 :00 No .25mg Take 0.5 tablets (0.25 mg total) by mouth 2 (two) times daily as needed for Anxiety for up to 30 days. Max Daily Amount: 0.5 mg [facility] HYDROcodone -acetaminop hen (NORCO 10-325) 10-325 mg per tablet 04-02 00:00: 00 04-03 00:00 :00 No 1{tbl} Take 1 tablet by mouth every 6 (six) hours as needed for up to 10 days. Max Daily Amount: 4 tablets [facility] methocarbam oL (ROBAXIN) 500 MG tablet 04-02 00:00: 00 04-03 00:00 :00 No 500mg Q.25D Take 1 tablet (500 mg total) by mouth 4 (four) times daily for 10 days. [facility] Metronidazo le 500 MG oral Tablet [...] morning and 1 tablet in the evening. [facility] Divalproex Sodium 500 MG oral Tablet Delayed Response 01-14 00:00: 00 Yes 250mg 250 mg. Cynthia gonzalez lacosamide (VIMPAT) 200 mg in NaCl 0.9% (NS) 50 mL piggyback 12-11 19:45: 00 12-11 19:57 :00 No 200mg 200 mg, IV Piggyback, ONCE, 1 dose, On Thu12/11/22 at 1445, Administer over 30 Minutes, 50 mL
Facu lty member approving Restricted medication : Alfonso ALVARADO [facility] ketorolac (TORADOL) injection 15 mg 12-11 18:15: 00 12-11 17:25 :00 No 15mg 15 mg, Slow IV Push, ONCE, 1 dose, On Thu12/11/22 at 1315, [facility] iopamidol (ISOVUE 370-500 mL) injection 80 mL 12-11 16:30: 00 12-11 16:27 :00 No [id number] 80mL 80 mL, Intravenou s, ONCE, 1 dose, On Arpita 12/11/22 at 1130, Routine [facility] nitroglycer in (NITROL) 2 % ointment 0.5 Inch 12-11 15:30: 00 12-11 14:31 :00 No .5[in_u s] 0.5 Inch, Transderma l (Apply To Skin), ONCE, 1 dose, On Thu12/11/22 at 1030, [facility] aspirin chewable tablet 324 mg 12-11 15:30: 00 12-11 14:30 :00 No 324mg 324 mg, Oral, ONCE, 1 dose, On Thu12/11/22 at 1030, Routine [facility] ondansetron (ZOFRAN (PF)) injection 4 mg 12-11 15:30: 00 12-11 14:29 :00 No 4mg 4 mg, Slow IV Push, ONCE, 1 dose, On Thu12/11/22 at 1030, [facility] LORazepam (ATIVAN) injection 1 mg 12-11 15:00: 00 12-11 14:57 :00 No 1mg 1 mg, Slow IV Push, ONCE, 1 dose, On Thu12/11/22 at 1000, STAT [facility] Lacosamide (VIMPAT) 100 mg tablet 12-11 00:00: 00 Yes [id number] 100mg Take 1 tablet by mouth in the morning and 1 tablet in the evening. [facility] acetaminoph en-codeine (TYLENOL #3) 300-30 mg tablet 1 tablet 11-18 05:30: 00 11-18 05:30 :00 No 1{tbl} 1 tablet, Oral, ONCE, 1 dose, On Thu11/18/22 at 0030, [facility] methocarbam oL (ROBAXIN) tablet 1,000 mg 11-18 05:30: 00 11-18 05:30 :00 No 1000mg 1,000 mg, Oral, ONCE, 1 dose, On Thu11/18/22 at 0030, [facility] ondansetron (ZOFRAN (PF)) injection 4 mg 11-18 04:45: 00 11-18 03:38 :00 No 4mg 4 mg, Slow IV Push, ONCE, 1 dose, On Thu11/17/22 at 2345, [facility] morpHINE (4 mg/mL) injection 4 mg 11-18 03:45: 00 11-18 03:38 :00 No 4mg 4 mg, Slow IV Push, ONCE, 1 dose, On Thu11/17/22 at 2245, Routine [facility] methocarbam oL (ROBAXIN) injection 1,000 mg 11-18 00:30: 00 11-17 23:47 :00 No 1000mg 1,000 mg, Intravenou s, ONCE, 1 dose, On Thu11/17/22 at 1930, [facility] methocarbam oL 500 mg tablet 11-18 00:00: 00 12-02 00:00 :00 No [id number] 1000mg Take 2 tablets by mouth 4 (four) times daily as needed for Pain (scale 7-10). [facility] acetaminoph en-codeine 300-60 mg tablet 11-18 00:00: 00 11-26 04:59 :00 No [id number] 1{tbl} Take 1 tablet by mouth every 6 (six) hours as needed for Pain for up to 7 days. Indication s: acute pain [facility] ketorolac (TORADOL) injection 15 mg 11-18 00:00: 00 11-17 23:08 :00 No 15mg 15 mg, Slow IV Push, ONCE, 1 dose, On Thu11/17/22 at 1900, Routine [facility] morpHINE (4 mg/mL) injection 4 mg 11-17 23:45: 00 11-17 23:49 :00 No 4mg 4 mg, Slow IV Push, ONCE, 1 dose, On Thu11/17/22 at 1845, Routine [facility] ondansetron (ZOFRAN (PF)) injection 4 mg 11-17 23:15: 00 11-17 23:06 :00 No 4mg 4 mg, Slow IV Push, ONCE, 1 dose, On Thu11/17/22 at 1815, MICHAEL [facility] lisinopriL (PRINIVIL,Z ESTRIL) tablet 10 mg 08-02 15:00: 00 Yes 10mg 10 mg, Oral, DAILY, First dose on Thu08/02/22 at 0900, Until Discontinu ed, Routine [facility] predniSONE (DELTASONE) tablet 40 mg 08-02 15:00: 00 08-07 14:59 :00 No 40mg 40 mg, Oral, DAILY, 5 doses, First dose on Thu08/02/22 at 0900, Last dose on Thu08/06/22 at 0900, Routine [facility] morpHINE (2 mg/mL) injection 2 mg 08-02 03:29: 15 Yes 2mg 2 mg, Slow IV Push, Q4HPRN, Starting on Thu08/01/22 at 2129, Until Discontinu ed, Routine, Pain (scale 7-10) [facility] levETIRAcet am (KEPPRA) in NACL (ISO-OS) 1,000 mg/100 mL RTU 08-02 00:00: 00 Yes 1000mg 1,000 mg, IV Piggyback, Q12H, First dose on Thu08/01/22 at 1800, Until Discontinu ed, Administer over 15 Minutes, 100 mL [facility] MULTIVITAMI N ORAL 08-01 23:49: 34 Yes 1{tbl} Take 1 Tab by mouth daily. [facility] omega-3 fatty acids-vitam in E (FISH OIL) 1,000 mg capsule 08-01 23:49: 34 Yes 1g Take 1 g by mouth daily. [facility] loratadine (CLARITIN LIQUI-GEL) 10 mg capsule 08-01 23:49: 34 Yes Take by mouth daily. [facility] ondansetron 4 mg tablet 08-01 23:49: 34 Yes 4mg Take 1 tablet by mouth every 8 (eight) hours as needed for Nausea and Vomiting (N/V). [facility] omega-3 fatty acids-vitam in E (FISH OIL) 1,000 mg capsule 08-01 23:49: 34 Yes 1g Take 1 g by mouth daily. [facility] pantoprazol e 40 mg EC tablet 08-01 23:49: 34 11-27 00:00 :00 No 40mg Take 40 mg by mouth daily. [facility] benzonatate (TESSALON PERLES) capsule 100 mg 08-01 20:00: 00 Yes 100mg 100 mg, Oral, Q8H, First dose on Thu08/01/22 at 1400, Until Discontinu ed, [facility] ipratropium -albuteroL (DUONEB) 0.5 mg-3 [...] 08-01 17:00: 00 08-01 17:00 :00 No [id number] 5mL 5 mL, Intravenou s, ONCE, 1 dose, On Thu08/01/22 at 1100, Routine
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 medication : KYLEE MONTEZ [facility] pantoprazol e (PROTONIX) EC tablet 40 mg 08-01 15:00: 00 Yes 40mg 40 mg, Oral, DAILY, First dose on Thu08/01/22 at 0900, Until Discontinu ed, Routine [facility] aspirin chewable tablet 81 mg 08-01 15:00: 00 Yes 81mg 81 mg, Oral, DAILY, First dose on Thu08/01/22 at 0900, Until Discontinu ed, Routine [facility] amLODIPine (NORVASC) tablet 10 mg 08-01 15:00: 00 Yes 10mg 10 mg, Oral, DAILY, First dose on Thu08/01/22 at 0900, Until Discontinu ed, Routine [facility] levETIRAcet am (KEPPRA) tablet 500 mg 08-01 [...] ed, Routine [facility] levETIRAcet am (KEPPRA) in NACL (ISO-OS) 1,000 mg/100 mL RTU 08-01 06:45: 00 08-01 06:32 :00 No 1000mg 1,000 mg, IV Piggyback, ONCE, 1 dose, On Thu08/01/22 at 0045, Administer over 15 Minutes, 100 mL [facility] LORazepam (ATIVAN) injection 1 mg 08-01 05:52: 54 Yes 1mg 1 mg, Slow IV Push, Q4HPRN, Starting on Thu07/31/22 at 2352, Until Discontinu ed, Routine, Seizures, Agitation, Anxiety, ETOH / Cocaine Withdrawl [facility] foLIC acid (FOLATE) tablet 1 mg 08-01 05:45: 00 Yes 1mg 1 mg, Oral, DAILY, First dose on Thu07/31/22 at 2345, Until Discontinu ed, Routine [facility] thiamine (VITAMIN B1) tablet 100 mg 08-01 05:45: 00 Yes 100mg 100 mg, Oral, DAILY, First dose on Thu07/31/22 at 2345, Until Discontinu ed, Routine [facility] LORazepam (ATIVAN) injection 0.5 mg 08-01 05:30: 00 08-01 05:29 :00 No .5mg 0.5 mg, Slow IV Push, ONCE, 1 dose, On Thu07/31/22 at 2330, MICHAEL [facility] atorvastati n (LIPITOR) tablet 40 mg 08-01 03:00: 00 Yes 40mg 40 mg, Oral, QHS, First dose on Thu07/31/22 at 2100, Until Discontinu ed, Routine [facility] diphenhydrA MINE (BENADRYL) tablet 25 mg 08-01 00:32: 02 Yes 25mg 25 mg, Oral, Q6HPRN, Starting on Thu07/31/22 at 1832, Until Discontinu ed, Routine, Itching [facility] enoxaparin (LOVENOX) injection 40 mg 07-31 23:00: 00 Yes 40mg 40 mg, Subcutaneo us, DAILY, First dose on Arpita 07/31/22 at 1700, Until Discontinu ed, Routine [facility] morpHINE (2 mg/mL) injection 2 mg 07-31 23:00: 00 07-31 22:29 :00 No 2mg 2 mg, Slow IV Push, ONCE, 1 dose, On Arpita 07/31/22 at 1700, Routine [facility] HYDROcodone -acetaminop hen (NORCO) 10-325 mg tablet 1 tablet 07-31 22:01: 36 Yes 1{tbl} 1 tablet, Oral, Q6HPRN, Starting on Thu07/31/22 at 1601, Until Discontinu ed, Routine, Pain (scale 7-10) [facility] HYDROcodone -acetaminop hen (NORCO 5) 5-325 mg tablet 1 tablet 07-31 22:01: 34 08-02 22:00 :34 No 1{tbl} 1 tablet, Oral, Q6HPRN, Starting on Arpita 07/31/22 at 1601, Until 08/02/22 at 1600, Routine, Pain (scale 4-6) [facility] acetaminoph en (TYLENOL) tablet 650 mg 07-31 22:01: 33 Yes 650mg 650 mg, Oral, Q6HPRN, Starting on Thu07/31/22 at 1601, Until Discontinu ed, Routine, Pain (scale 1-3) [facility] ketorolac (TORADOL) injection 15 mg 07-31 21:45: 00 07-31 20:50 :00 No 15mg 15 mg, Slow IV Push, ONCE, 1 dose, On Thu07/31/22 at 1545, Routine [facility] ondansetron (ZOFRAN (PF)) injection 4 mg 07-31 21:00: 00 07-31 20:47 :00 No 4mg 4 mg, Slow IV Push, ONCE, 1 dose, On Thu07/31/22 at 1500, MICHAEL [facility] furosemide (LASIX) injection 40 mg 07-31 20:15: 00 Yes 40mg 40 mg, Slow IV Push, Q12H, First dose on Arpita 07/31/22 at 1415, Until Discontinu ed, Routine [facility] methylpredn isolone sod succ (SOLU-MEDRO L) injection 125 mg 07-31 19:30: 00 07-31 18:54 :00 No 125mg 125 mg, Slow IV Push, ONCE NOW, 1 dose, On Arpita 07/31/22 at 1330, MICHAEL [facility] ipratropium -albuteroL (DUONEB) 0.5 mg-3 mg(2.5 mg base)/3 mL nebulizer solution 3 mL 07-31 19:30: 00 07-31 18:48 :00 No 3mL 3 mL, Inhalation , ONCE, 1 dose, On Arpita 07/31/22 at 1330[facility] 07-31 17:15: 40 Yes 40mg Take 40 mg by mouth daily. [facility] MULTIVITAMI N ORAL 07-31 15:50: 57 Yes 1{tbl} Take 1 Tab by mouth daily. [facility] loratadine (CLARITIN LIQUI-GEL) 10 mg capsule 07-31 15:50: 57 Yes Take by mouth daily. [facility] ondansetron 4 mg tablet 07-31 15:50: 57 Yes 4mg Take 4 mg by mouth every 8 (eight) hours as needed. [facility] omega-3 fatty acids-vitam in E (FISH OIL) 1,000 mg capsule 07-31 15:21: 27 Yes 1g Take 1 g by mouth daily. [facility] TAKE ONE (1) TABLET(S) BY MOUTH THREE TIMES A DAY NEEDED. 07-28 00:00: 00 No Methylpredn isolone 4 mg tablet 2021-07 0 00:00: 00 05-12 04:59 :00 No [id number] 4mg Take 1 tablet through enteral tube in the morning for 1 dose. [facility] Methylpredn isolone 4 mg tablet 2021-07 00:00: 00 05-11 04:59 :00 No [id number] 4mg Take 1 tablet through enteral tube every 12 (twelve) hours for 2 doses. [facility] MULTIVITAMI N ORAL 2021-07 14:44: 48 Yes 1{tbl} Take 1 Tab by mouth daily. [facility] omega-3 fatty acids-vitam in E (FISH OIL) 1,000 mg capsule 2021-07 14:44: 48 Yes 1g Take 1 g by mouth daily. [facility] loratadine (CLARITIN LIQUI-GEL) 10 mg capsule 2021-07 14:44: 48 Yes Take by mouth daily. [facility] ondansetron (ZOFRAN) 4 mg tablet 2021-07 14:44: 48 Yes 4mg Take 4 mg by mouth every 8 (eight) hours as needed. [facility] pantoprazol e (PROTONIX) 40 mg EC tablet 2021-07 14:44: 48 Yes 40mg Take 40 mg by mouth daily. [facility] DULoxetine 30 mg capsule 2021-07 14:00: 00 Yes 30mg Take 1 capsule by mouth in the morning. [facility] divalproex (DEPAKOTE) EC tablet 1,000 mg 2021-07 13:00: 00 Yes 1000mg 1,000 mg, Oral, BID, First dose (after last modificati on) on Thu05/08/22 at 0800, Until Discontinu ed, Routine [facility] Methylpredn isolone (MEDROL) tablet 4 mg 2021-07 08:50: 10 05-09 08:59 :00 No 4mg 4 mg, Oral, Q8H TAPER, 3 doses, First dose on Thu05/08/22 at 0400, Last dose on Thu05/08/22 at 2000, Routine [facility] acetaminoph en-codeine (TYLENOL #3) 300-30 mg tablet 1 tablet 2021-07 04:07: 01 Yes 1{tbl} 1 tablet, Oral, Q4HPRN, Starting on Thu05/07/22 at 2307, Until Discontinu ed, Routine, Pain (scale 7-10) [facility] morpHINE (2 mg/mL) injection 2 mg 2021-07 03:03: 15 Yes 2mg 2 mg, Slow IV Push, Q4HPRN, Starting on Thu05/07/22 at 2203, Until Discontinu ed, Routine, Pain (scale 7-10) [facility] LORazepam (ATIVAN) tablet 1 mg 2021-07 00:02: 18 Yes 1mg 1 mg, Oral, Q6HPRN, Starting on Thu05/07/22 at 1902, Until Discontinu ed, Routine, Anxiety [facility] cyclobenzap rine 5 mg tablet 2021-07 00:00: 00 Yes [id number] 5mg Take 1 tablet by mouth in the morning and 1 tablet at noon and 1 tablet in the evening. [facility] DULoxetine (CYMBALTA) 30 mg capsule 2021-07 00:00: 00 06-08 05:59 :00 No [id number] 60mg Take 2 capsules by mouth in the morning for 30 days. [facility] divalproex (DEPAKOTE) 250 mg EC tablet 2021-07 00:00: 00 06-08 05:59 :00 No [id number] 750mg Take 3 tablets by mouth every 8 (eight) hours for 30 days. [facility] LORazepam 1 mg tablet 2021-07 00:00: 00 05-19 04:59 :00 No [id number] 1mg Take 1 tablet by mouth every 6 (six) hours as needed for Anxiety or Agitation for up to 10 days. [facility] acetaminoph en-codeine 300-30 mg tablet 2021-07 00:00: 00 05-16 04:59 :00 No [id number] 1{tbl} Take 1 tablet by mouth every 4 (four) hours as needed for Pain (scale 7-10) for up to 7 days. Indication s: acute pain [facility] Methylpredn isolone 4 mg tablet 2021-07 00:00: 00 05-10 04:59 :00 No [id number] 4mg Take 1 tablet by mouth every 8 (eight) hours for 3 doses. [facility] divalproex (DEPAKOTE) EC tablet 750 mg 2021-07 01:00: 00 05-08 09:40 :23 No 750mg 750 mg, Oral, BID, First dose on Thu05/06/22 at 2000, Until Discontinu ed, Routine [facility] levETIRAcet am (KEPPRA) tablet 1,500 mg 2021-07 13:00: 00 05-06 18:38 :22 No 1500mg 1,500 mg, Oral, BID, First dose (after last modificati on) on Thu05/06/22 at 0800, Until Discontinu ed, Routine [facility] levETIRAcet am (KEPPRA) in NACL (ISO-OS) 1,000 mg/100 mL RTU 2021-07 05:00: 00 05-06 05:46 :00 No 1000mg 1,000 mg, IV Piggyback, ONCE, 1 dose, On Thu05/06/22 at 0000, Administer over 15 Minutes, 100 mL [facility] methocarbam oL (ROBAXIN) tablet 500 mg 2021-07 02:15: 00 05-06 23:21 :42 No 500mg 500 mg, Oral, QID, First dose on Thu05/05/22 at 2115, Until Discontinu ed, Routine [facility] LORazepam (ATIVAN) tablet 2 mg 2021-07 01:30: 00 05-06 01:03 :00 No 2mg 2 mg, Oral, ONCE, 1 dose, On Thu05/05/22 at 2030, Routine [facility] levETIRAcet am (KEPPRA) tablet 1,000 mg 2021-07 [...] Routine [facility] acetaminoph en (TYLENOL) tablet 1,000 mg 2021-07 19:30: 00 Yes 1000mg 1,000 mg, Oral, Q8H, First dose on Thu05/05/22 at 1430, Until Discontinu ed, Routine [facility] pantoprazol e (PROTONIX) EC tablet 40 mg 2021-07 14:00: 00 Yes 40mg 40 mg, Oral, DAILY, First dose on Thu05/05/22 at 0900, Until Discontinu ed, Routine [facility] docusate (COLACE) capsule 100 mg 2021-07 14:00: 00 Yes 100mg 100 mg, Oral, DAILY, First dose on Thu05/05/22 at 0900, Until Discontinu ed, Routine [facility] HYDROcodone -acetaminop hen (NORCO) 10-325 mg tablet 1 tablet 2021-07 10:32: 02 05-05 19:18 :52 No 1{tbl} 1 tablet, Oral, Q6HPRN, Starting on Thu05/05/22 at 0532, Until Thu05/05/22 at 1418, Routine, Pain (scale 7-10) [facility] ondansetron (ZOFRAN (PF)) injection 4 mg 2021-07 06:49: 57 Yes 4mg 4 mg, Slow IV Push, Q6HPRN, Starting on Thu05/05/22 at 0149, Until Discontinu ed, Routine, Nausea and Vomiting (N/V) [facility] HYDROcodone -acetaminop hen (NORCO 5) 5-325 mg tablet 1 tablet 2021-07 06:49: 41 05-05 10:32 :14 No 1{tbl} 1 tablet, Oral, Q6HPRN, Starting on Thu05/05/22 at 0149, Until Thu05/05/22 at 0532, Routine, Pain (scale 7-10) [facility] acetaminoph en (TYLENOL) tablet 325 mg 2021-07 06:49: 39 05-05 19:18 :52 No 325mg 325 mg, Oral, Q4HPRN, Starting on Thu05/05/22 at 0149, Until Thu05/05/22 at 1418, Routine, Pain (scale 4-6) [facility] ondansetron (ZOFRAN) tablet 4 mg 2021-07 04:00: 00 05-05 03:26 :00 No 4mg 4 mg, Oral, ONCE, 1 dose, On 05/04/22 at 2300, Routine [facility] morpHINE (2 mg/mL) injection 2 mg 2021-07 04:00: 00 05-05 03:26 :00 No 2mg 2 mg, Slow IV Push, ONCE, 1 dose, On 05/04/22 at 2300, Routine [facility] aspirin 81 mg chewable tablet 04-16 00:00: 00 Yes [id number] 81mg Take 1 tablet by mouth in the morning. [facility] MULTIVITAMI N ORAL 04-15 17:39: 14 Yes 1{tbl} Take 1 Tab by mouth daily. [facility] omega-3 fatty acids-vitam in E (FISH OIL) 1,000 mg capsule 04-15 17:39: 14 Yes 1g Take 1 g by mouth daily. [facility] loratadine (CLARITIN LIQUI-GEL) 10 mg capsule 04-15 17:39: 14 Yes Take by mouth daily. [facility] ondansetron (ZOFRAN) 4 mg tablet 04-15 17:39: 14 Yes 4mg Take 4 mg by mouth every 8 (eight) hours as needed. [facility] pantoprazol e (PROTONIX) 40 mg EC tablet 04-15 17:39: 14 Yes 40mg Take 40 mg by mouth daily. [facility] lisinopril- hydrochloro thiazide 20-12.5 mg per tablet 04-15 15:58: 35 04-15 00:00 :00 No 1{tbl} Take 1 tablet by mouth daily. [facility] levetiracet am (KEPPRA ORAL) 04-15 15:58: 35 04-15 00:00 :00 No Take by mouth. [facility] acetaminoph en-codeine (TYLENOL #4) 300-60 mg tablet 1 tablet 04-15 05:39: 23 04-15 14:39 :42 No 1{tbl} 1 tablet, Oral, Q6HPRN, Starting on Thu04/15/22 at 0039, Until Thu04/15/22 at 0939, Routine, Pain (scale 4-6), Pain (scale 1-3) [facility] LORazepam (ATIVAN) tablet 2 mg 04-15 03:30: 00 04-15 10:27 :00 No 2mg 2 mg, Oral, ONCE, 1 dose, On Thu04/14/22 at 2230, Routine [facility] levETIRAcet am (KEPPRA) tablet 1,000 mg 04-15 02:45: 00 Yes 1000mg 1,000 mg, Oral, BID, First dose (after last modificati on) on Thu04/14/22 at 2145, Until Discontinu ed, Routine [facility] ketorolac (TORADOL) injection 15 mg 04-15 02:13: 00 04-15 02:22 :00 No 15mg 15 mg, Slow IV Push, ONCE, 1 dose, On Thu04/14/22 at 2115, Routine [facility] levETIRAcet am 1,000 mg tablet 04-15 00:00: 00 Yes [id number] 1000mg Take 1 tablet by mouth in the morning and 1 tablet in the evening. [facility] atorvastati n 40 mg tablet 04-15 00:00: 00 01-09 00:00 :00 No [id number] 40mg Take 1 tablet by mouth at bedtime. [facility] lidocaine 5 % (700 mg/patch) patch 04-15 00:00: 00 04-23 04:59 :00 No [id number] 1{patch } Apply 1 Patch to area(s) in the morning for 7 days. [facility] HYDROcodone -acetaminop hen 5-325 mg tablet 04-15 00:00: 00 04-21 04:59 :00 No [id number] 1{tbl} Take 1 tablet by mouth every 6 (six) hours as needed for Pain (scale 7-10) for up to 5 days. Indication s: acute pain [facility] lidocaine (LIDODERM) 5 % (700 mg/patch) patch 1 Patch 04-14 21:45: 29 Yes 1{patch } 1 Patch, Topical, Administer over 12 Hours, [id number], Starting on Thu04/14/22 at 1645, Until Discontinu ed, Routine, Localized pain [facility] aspirin chewable tablet 81 mg 04-14 21:30: 00 Yes 81mg 81 mg, Oral, DAILY, First dose on Thu04/14/22 at 1630, Until Discontinu ed, Routine [facility] acetaminoph en (TYLENOL) tablet 650 mg 04-14 21:29: 25 Yes 650mg 650 mg, Oral, Q6HPRN, Starting on Thu04/14/22 at 1629, Until Discontinu ed, Routine, Pain (scale 1-3), Temp > 38.5 C, Temp > 37.5 C [facility] HYDROcodone -acetaminop hen (NORCO) 10-325 mg tablet 1 tablet 04-14 21:29: 02 04-15 05:39 :41 No 1{tbl} 1 tablet, Oral, Q6HPRN, Starting on Thu04/14/22 at 1629, Until Thu04/15/22 at 0039, Routine, Pain (scale 7-10), Pain (scale 4-6) [facility] sulfur hexafluorid e microsphr (LUMASON) injection 5 mL 04-14 16:45: 00 04-14 16:45 :00 No [id number] 5mL 5 mL, Intravenou s, ONCE, 1 dose, On Thu04/14/22 at 1145, Routine
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 medication : MADELINE PIERER [facility] clopidogreL (PLAVIX) 75 mg tablet 75 mg 04-14 14:00: 00 Yes 75mg 75 mg, Oral, DAILY, First dose on Thu04/14/22 at 0900, Until Discontinu ed, [facility]op[facility] (PROTONIX[facility] EC tablet 40 mg 04-14 14:00: 00 Yes 40mg 40 mg, Oral, DAILY, First dose on Thu04/14/22 at 0900, Until Discontinu ed, [facility]ine [facility] atorvastati n (LIPITOR) tablet 40 mg 04-14 02:00: 00 Yes 40mg 40 mg, Oral, QHS, First dose on Thu04/13/22 at 2100, Until Discontinu ed, Routine [facility] LORazepam (ATIVAN) tablet 1 mg 04-14 01:30: 00 04-14 01:45 :00 No 1mg 1 mg, Oral, ONCE, 1 dose, On Thu04/13/22 at 2030, Routine [facility] methocarbam oL (ROBAXIN) tablet 500 mg 04-14 01:00: 00 Yes 500mg 500 mg, Oral, QID, First dose on Thu04/13/22 at 2000, Until Discontinu ed, Routine [facility] heparin (porcine) injection 5,000 Units 04-14 01:00: 00 Yes 5000U 5,000 Units, Subcutaneo us, Q12H, First dose on Thu04/13/22 at 2000, Until Discontinu ed, Routine [facility] acetaminoph en (TYLENOL) tablet 650 mg 04-14 00:23: 25 04-14 21:29 :42 No 650mg 650 mg, Oral, Q6HPRN, Starting on Thu04/13/22 at 1923, Until Thu04/14/22 at 1629, Routine, Pain (scale 1-3), Pain (scale 4-6), Temp > 38.5 C, Temp > 37.5 C [facility] lidocaine (LIDODERM) 5 % (700 mg/patch) patch 1 Patch 04-14 00:22: 00 04-14 13:51 :00 No 1{patch } 1 Patch, Topical, Administer over 12 Hours, ONCE, 1 dose, On Thu04/13/22 at 1930, Routine [facility] FENTanyl PF (SUBLIMAZE (PF)) injection 50 mcg 04-13 20:30: 00 04-13 19:22 :00 No 50ug 50 mcg, Slow IV Push, ONCE, 1 dose, On 04/13/22 at 1530, Routine [facility] aspirin chewable tablet 650 mg 04-13 20:15: 00 04-13 20:15 :00 No 650mg 650 mg, Oral, ONCE, 1 dose, On 04/13/22 at 1515, Routine [facility] clopidogreL (PLAVIX) 300 mg tablet 300 mg 04-13 20:00: 00 04-13 19:15 :00 No 300mg 300 mg, Oral, ONCE, 1 dose, On Thu04/13/22 at 1500, Routine [facility] ondansetron (ZOFRAN (PF)) injection 4 mg 04-13 19:30: 00 04-13 19:22 :00 No 4mg 4 mg, Slow IV Push, ONCE, 1 dose, On Thu04/13/22 at 1430, MICHAEL [facility] iopamidol (ISOVUE 370-500 mL) injection 100 mL 04-13 18:31: 00 04-13 18:32 :00 No [id number] 100mL 100 mL, Intravenou s, ONCE, 1 dose, On Thu04/13/22 at 1345, Routine [facility] NaCl 0.9% (NS) injection 5 mL 04-13 18:14: 11 Yes 5mL 5 mL, Slow IV Push, PRN - SEE INSTRUCTIO NS, Starting on Thu04/13/22 at 1314, Until Discontinu ed, 10 mL [facility] aspirin chewable tablet 324 mg 08 14:00: 00 Yes 324mg 324 mg, Oral, DAILY, First dose on 11/24/21 at 0900, Until Discontinu ed, Routine [facility] metoclopram iker HCl (REGLAN) injection 10 mg 11-23 22:30: 00 11-23 21:24 :00 No 10mg 10 mg, Slow IV Push, ONCE, 1 dose, On 11/23/21 at 1730, [facility] acetaminoph en (TYLENOL) tablet 1,000 mg 11-23 22:15: 00 11-23 21:09 :00 No 1000mg 1,000 mg, Oral, ONCE, 1 dose, On 11/23/21 at 1715, [facility] ondansetron (ZOFRAN (PF)) injection 4 mg 11-23 21:45: 00 11-23 20:30 :00 No 4mg 4 mg, Slow IV Push, ONCE, 1 dose, On 11/23/21 at 1645, [facility] NaCl 0.9% (NS) bolus infusion 1,000 mL 11-23 21:30: 00 11-23 21:56 :00 No 1000mL at 999 mL/hr, 1,000 mL, IV Infusion, ONCE, 1 dose, On 11/23/21 at 1630, [facility] LORazepam (ATIVAN) injection 4 mg 11-23 21:30: 00 11-23 20:23 :00 No 4mg 4 mg, Slow IV Push, ONCE, 1 dose, On 11/23/21 at 1630, STAT [facility] levETIRAcet am (KEPPRA) in NACL (ISO-OS) 1,500 mg/100 mL RTU 11-23 21:30: 00 11-23 20:47 :00 No 1500mg 1,500 mg, IV Piggyback, ONCE, 1 dose, On 11/23/21 at 1630, Administer over 15 Minutes, 100 mL [facility] Dose Unknown 4-08 00:00: 00 No [...] 2022-0 3-06 00:00: 00 No Dose Unknown 2-0 3-06 00:00: 00 No Dose Unknown 2-0 3-06 00:00: 00 No Dose Unknown 2022-0 3-06 00:00: 00 No Dose Unknown 2022-0 3-06 00:00: 00 No Dose Unknown 2-0 [...] y
Durat ion of Therapy: 7 days [facility] morpHINE injection 4 mg 03-17 01:58: 00 03-17 02:13 :00 No 4mg 4 mg, Slow IV Push, ONCE, 1 dose, 03/16/21 at 2100, STAT [facility] ondansetron (ZOFRAN (PF)) injection 4 mg 03-17 01:58: 00 03-17 02:12 :00 No 4mg 4 mg, Slow IV Push, ONCE, 1 dose, 03/16/21 at 2100, [facility] ipratropium -albuteroL (DUONEB) 0.5 mg-3 mg(2.5 mg base)/3 mL nebulizer solution 3 mL 03-17 01:57: 00 03-17 02:15 :00 No 3mL 3 mL, Inhalation , ONCE, 1 dose, 03/16/21 at 2100, [facility] NaCl 0.9% (NS) IV infusion 1,000 mL 03-17 01:57: 00 03-17 03:07 :00 No 1000mL at 999 mL/hr, Intravenou s, ONCE, 1 dose, 03/16/21 at 2100, [facility] methylpredn isolone sod succ (SOLU-MEDRO L) injection 125 mg 03-17 01:57: 00 03-17 02:11 :00 No 125mg 125 mg, Slow IV Push, ONCE, 1 dose, 03/16/21 at 2100, STAT [facility] levoFLOXaci n 500 mg tablet 03-17 00:00: 00 03-24 04:59 :00 No [id number] 500mg Take 1 tablet by mouth daily for 6 days. [facility] predniSONE 10 mg tablet 03-17 00:00: 00 03-22 04:59 :00 No [id number] 30mg Take 3 tablets by mouth daily for 4 days. [facility] albuterol (VENTOLIN) inhaler 4 Puff 03-15 01:45: 00 03-15 00:44 :00 No [id number] 4{puff} 4 Puff, Inhalation , ONCE, 1 dose, [facility] 03/14/21 at 2044, Routine [facility] dexamethaso ne (DECADRON) injection 10 mg 03-15 01:45: 00 03-15 00:45 :00 No [id number] 10mg 10 mg, Intramuscu lar, ONCE, 1 dose, [facility] 03/14/21 at 2044, Routine [facility] albuterol 2.5 mg /3 mL (0.083 %) nebulizer solution 03-15 00:00: 00 01-09 00:00 :00 No [id number] 2.5mg Inhale 3 mL every 4 (four) hours as needed for Wheezing or Shortness of Breath. [facility] levETIRAcet am (KEPPRA) in NACL (ISO-OS) 1,000 mg/100 mL RTU 02-19 20:15: 00 02-19 19:30 :00 No 1000mg 1,000 mg, IV Infusion, ONCE, 1 dose, e 02/19/21 at 1515, Administer over 15 Minutes, 100 mL [facility] levetiracet am (KEPPRA ORAL) 02-19 19:45: 33 Yes Take by mouth. [facility] LISINOPRIL- HYDROCHLORO THIAZIDE ORAL 02-19 19:41: 15 02-19 00:00 :00 No Take by mouth. [facility] dicyclomine (BENTYL) injection 20 mg 02-19 19:15: 00 02-19 19:04 :00 No 20mg 20 mg, Intramuscu lar, ONCE, 1 dose, 02/19/21 at 1415, Routine [facility] proMETHazin e (PHENERGAN) 25 mg in NaCl 0.9% (NS) 50 mL piggyback 02-19 19:15: 00 02-19 19:03 :00 No 25mg 25 mg, IV Piggyback, ONCE, 1 dose, 02/19/21 at 1415, 50 mL [facility] morpHINE injection 4 mg 02-19 17:15: 00 02-19 17:05 :00 No 4mg 4 mg, Slow IV Push, ONCE, 1 dose, 02/19/21 at 1215, STAT [facility] NaCl 0.9% (NS) bolus infusion 1,000 mL 02-19 17:15: 00 02-19 19:04 :00 No 1000mL at 999 mL/hr, 1,000 mL, IV Infusion, ONCE, 1 dose, 02/19/21 at 1215, STAT [facility] ondansetron (ZOFRAN (PF)) injection 4 mg 02-19 17:00: 00 02-19 15:59 :00 No 4mg 4 mg, Slow IV Push, ONCE, 1 dose, 02/19/21 at 1200, MICHAEL [facility] iopamidol (ISOVUE 370-500 mL) injection 100 mL 02-19 16:35: 00 02-19 16:45 :00 No [id number] 100mL 100 mL, Intravenou s, ONCE, 1 dose, 02/19/21 at 1145, Routine [facility] levetiracet am (KEPPRA ORAL) 02-19 14:45: 33 Yes Take by mouth. [facility] dicyclomine 20 mg tablet 02-19 00:00: 00 01-09 00:00 :00 No [id number] 20mg Take 1 tablet by mouth 4 (four) times daily as needed for Abdominal pain. [facility] proMETHazin e 25 mg tablet 02-19 00:00: 00 11-27 00:00 :00 No [id number] 25mg Take 1 tablet by mouth every 6 (six) hours as needed for Nausea and Vomiting (N/V). [facility] ZONISAMIDE 100 mg capsule 11-15 00:00: 00 Yes TAKE 1 CAPSULE BY MOUTH TWICE A DAY [facility] ondansetron (ZOFRAN) 4 mg tablet 02-09 20:05: 01 Yes 4mg Take 4 mg by mouth every 8 (eight) hours as needed. [facility] pantoprazol e (PROTONIX) 40 mg EC tablet 02-09 20:05: 01 Yes 40mg Take 40 mg by mouth daily. [facility] LISINOPRIL- HYDROCHLORO THIAZIDE ORAL 02-09 20:05: 01 Yes Take by mouth. [facility] lisinopril- hydrochloro thiazide 20-12.5 mg per tablet 02-09 20:03: 30 Yes 1{tbl} Take 1 tablet by mouth daily. [facility] omega-3 fatty acids-vitam in E (FISH OIL) 1,000 mg capsule 02-09 19:59: 52 Yes 1g Take 1 g by mouth daily. [facility] MULTIVITAMI N ORAL 02-09 19:58: 14 Yes 1{tbl} Take 1 Tab by mouth daily. [facility] loratadine (CLARITIN LIQUI-GEL) 10 mg capsule 02-09 19:58: 14 Yes Take by mouth daily. [facility] ondansetron (ZOFRAN) 4 mg tablet 02-09 15:05: 01 Yes 4mg Take 4 mg by mouth every 8 (eight) hours as needed. [facility] pantoprazol e (PROTONIX) 40 mg EC tablet 02-09 15:05: 01 Yes 40mg Take 40 mg by mouth daily. [facility] lisinopril- hydrochloro thiazide 20-12.5 mg per tablet 02-09 15:03: 30 Yes 1{tbl} Take 1 tablet by mouth daily. [facility] omega-3 fatty acids-vitam in E (FISH OIL) 1,000 mg capsule 02-09 14:59: 52 Yes 1g Take 1 g by mouth daily. [facility] MULTIVITAMI N ORAL 02-09 14:58: 14 Yes 1{tbl} Take 1 Tab by mouth daily. [facility] loratadine (CLARITIN LIQUI-GEL) 10 mg capsule 02-09 14:58: 14 Yes Take by mouth daily. [facility] proMETHazin e (PHENERGAN) 25 mg tablet 11-20 00:00: 00 Yes 25mg Take 1 tablet by mouth every 6 (six) hours as needed for Nausea and Vomiting (N/V). [facility] carvedilol (COREG) 6.25 mg tablet 09-19 00:00: 00 12-02 00:00 :00 No 6.25mg Take 1 Tab by mouth 2 (two) times daily with meals. [facility] amLODIPine (NORVASC) 10 mg tablet 09-19 00:00: 00 12-02 00:00 :00 No 10mg Take 1 Tab by mouth daily. [facility] lisinopril (PRINIVIL,Z ESTRIL) 40 mg tablet 09-19 00:00: 00 11-27 00:00 :00 No 40mg Take 1 Tab by mouth daily. [facility] Immunizations Ordered Immunization Name Filled Immunization [...] BA-SUCROSE VACCINE (ROSE TOP) Unknown Completed [facility] SARS-COV-2 COVID-19 PFIZER BA-SUCROSE VACCINE (ROSE TOP) Unknown Completed [facility] SARS-COV-2 COVID-19 PFIZER VACCINE Unknown Completed [facility] SARS-COV-2 COVID-19 PFIZER VACCINE Unknown Completed [facility] SARS-COV-2 COVID-19 PFIZER BA-SUCROSE VACCINE (ROSE TOP) Unknown Completed [facility] SARS-COV-2 COVID-19 PFIZER VACCINE Unknown Completed [facility] SARS-COV-2 COVID-19 PFIZER BA-SUCROSE VACCINE (ROSE TOP) Unknown Completed [facility] SARS-COV-2 COVID-19 PFIZER VACCINE Unknown Completed [facility] SARS-COV-2 COVID-19 PFIZER BA-SUCROSE VACCINE (ROSE TOP) Unknown Completed [facility] SARS-COV-2 COVID-19 PFIZER VACCINE Unknown Completed [facility] SARS-COV-2 COVID-19 PFIZER BA-SUCROSE VACCINE (ROSE TOP) Unknown [facility] PFIZER VACCINE Unknown Completed [facility] SARS-COV-2 COVID-19 PFIZER BA-SUCROSE VACCINE (ROSE TOP) Unknown [facility]-19 PFIZER VACCINE Unknown Completed [facility] SARS-COV-2 COVID-19 PFIZER BA-SUCROSE VACCINE (ROSE TOP) Unknown [facility] COVID-19 PFIZER VACCINE Unknown Completed [facility] SARS-COV-2 COVID-19 PFIZER BA-SUCROSE VACCINE (ROSE TOP) Unknown [facility] COVID-19 PFIZER VACCINE Unknown Completed [facility] SARS-COV-2 COVID-19 PFIZER BA-SUCROSE VACCINE (ROSE TOP) Unknown Completed [facility] SARS-COV-2 COVID-19 PFIZER VACCINE Unknown Completed [facility] SARS-COV-2 COVID-19 PFIZER BA-SUCROSE VACCINE (ROSE TOP) Unknown Completed [facility] SARS-COV-2 COVID-19 PFIZER VACCINE Unknown Completed [facility] SARS-COV-2 COVID-19 PFIZER BA-SUCROSE VACCINE (ROSE TOP) Unknown Completed [facility] SARS-COV-2 COVID-19 PFIZER VACCINE Unknown Completed [facility] SARS-COV-2 COVID-19 PFIZER BA-SUCROSE VACCINE (ROSE TOP) Unknown Completed [facility] SARS-COV-2 COVID-19 PFIZER VACCINE Unknown Completed [facility] SARS-COV-2 COVID-19 PFIZER BA-SUCROSE VACCINE (ROSE TOP) Unknown Completed [facility] Vital Signs Vital Name Observation Time Observation Value Naif mack Systolic blood pressure 2024-04-03 05:10:00 111 mm[Hg] [facility] Diastolic blood pressure 2024-04-03 05:10:00 65 mm[Hg] [facility] Heart rate 2024-04-03 05:10:00 70 /min [facility] Respiratory rate 2024-04-03 05:10:00 23 /min [facility] Oxygen saturation in Arterial blood by Pulse oximetry 2024-04-03 05:10:00 97 /min [facility] Body temperature 2024-04-03 01:49:00 37.33 Radha [facility] Body height 2024-04-03 01:49:00 157.5 cm [facility] Body weight 2024-04-03 01:49:00 90.719 kg [facility] BMI 2024-04-03 01:49:00 36.58 kg/m2 [facility] Systolic blood pressure 2024-01-13 04:50:00 103 mm[Hg] [facility] Diastolic blood pressure 2024-01-13 04:50:00 72 mm[Hg] [facility] Heart rate 2024-01-13 04:50:00 85 /min [facility] Body temperature 2024-01-13 04:50:00 36.67 Radha [facility] Oxygen saturation in Arterial blood by Pulse oximetry 2024-01-13 04:50:00 99 /min [facility] Respiratory rate 2024-01-13 04:40:00 19 /min [facility] Body height 2024-01-13 03:06:00 160 cm [facility] Body weight 2024-01-13 03:06:00 81.194 kg [facility] BMI 2024-01-13 03:06:00 31.71 kg/m2 [facility] Systolic blood pressure 2024-01-10 20:00:00 95 mm[Hg] [facility] Diastolic blood pressure 2024-01-10 20:00:00 71 mm[Hg] [facility] Heart rate 2024-01-10 20:00:00 73 /min [facility] Body temperature 2024-01-10 20:00:00 36.83 Radha [facility] Respiratory rate 2024-01-10 20:00:00 23 /min [facility] Oxygen saturation in Arterial blood by Pulse oximetry 2024-01-10 20:00:00 94 /min [facility] Body weight 2024-01-10 09:00:00 81.466 kg [facility] BMI 2024-01-10 09:00:00 32.85 kg/m2 [facility] Body height 2024-01-09 21:10:00 157.5 cm [facility] Heart rate 2023-12-15 12:35:00 73 /min [facility] Respiratory rate 2023-12-15 12:35:00 18 /min [facility] Oxygen saturation in Arterial blood by Pulse oximetry 2023-12-15 12:35:00 95 /min [facility] Systolic blood pressure 2023-12-15 12:20:00 105 mm[Hg] [facility] Diastolic blood pressure 2023-12-15 12:20:00 64 mm[Hg] [facility] Body temperature 2023-12-15 12:20:00 36.11 Radha [facility] Body weight 2023-12-15 08:12:00 78.472 kg [facility] BMI 2023-12-15 08:12:00 30.65 kg/m2 [facility] Body height 2023-12-15 02:10:00 160 cm [facility] Systolic blood pressure 2023-12-03 23:00:00 106 mm[Hg] [facility] Diastolic blood pressure 2023-12-03 23:00:00 75 mm[Hg] [facility] Heart rate 2023-12-03 23:00:00 108 /min [facility] Body temperature 2023-12-03 23:00:00 36.61 Radha [facility] Respiratory rate 2023-12-03 23:00:00 17 /min [facility] Oxygen saturation in Arterial blood by Pulse oximetry 2023-12-03 23:00:00 96 /min [facility] Body height 2023-12-03 19:39:00 160 cm [facility] Body weight 2023-12-03 19:39:00 90.7 kg [facility] BMI 2023-12-03 19:39:00 35.43 kg/m2 [facility] Systolic blood pressure 2023-11-28 16:39:00 91 mm[Hg] [facility] Diastolic blood pressure 2023-11-28 16:39:00 65 mm[Hg] [facility] Heart rate 2023-11-28 16:39:00 105 /min [facility] Body temperature 2023-11-28 16:39:00 36.28 Radha [facility] Respiratory rate 2023-11-28 16:39:00 20 /min [facility] Oxygen saturation in Arterial blood by Pulse oximetry 2023-11-28 16:39:00 97 /min [facility] Body weight 2023-11-28 01:00:00 84 kg [facility] BMI 2023-11-28 01:00:00 32.81 kg/m2 [facility] Body height 2023-11-22 07:10:00 160 cm [facility] Systolic blood pressure 2023-11-23 19:43:25 123 mm[Hg] [facility] Diastolic blood pressure 2023-11-23 19:43:25 79 mm[Hg] [facility] Respiratory rate 2023-11-23 19:43:25 17 /min [facility] Oxygen saturation in Arterial blood by Pulse oximetry 2023-11-23 19:43:25 97 /min [facility] Heart rate 2023-11-23 19:20:46 122 /min [facility] Body temperature 2023-11-23 15:00:00 36.22 Radha [facility] Body height 2023-11-22 07:10:00 160 cm [facility] Body weight 2023-11-22 07:10:00 94.484 kg [facility] BMI 2023-11-22 07:10:00 35.16 kg/m2 [facility] Systolic blood pressure 2023-09-11 17:27:00 [...] Systolic blood pressure 2023-08-12 21:00:00 130 mm[Hg] [facility] Diastolic blood pressure 2023-08-12 21:00:00 85 mm[Hg] [facility] Heart rate 2023-08-12 21:00:00 106 /min [facility] 2023-08-12 21:00:00 14 /min [facility] Oxygen saturation in Arterial blood by Pulse oximetry 2023-08-12 21:00:00 95 /min [facility] Body temperature 2023-08-12 20:34:54 37.22 Radha [facility] Body height 2023-08-12 19:47:00 157.5 cm [facility] [...] Systolic blood pressure 2022-12-11 20:00:00 142 mm[Hg] [facility] Diastolic blood pressure 2022-12-11 20:00:00 90 mm[Hg] [facility] Respiratory rate 2022-12-11 20:00:00 24 /min [facility] Heart rate 2022-12-11 18:00:00 101 /min [facility] Oxygen saturation in Arterial blood by Pulse oximetry 2022-12-11 18:00:00 93 /min [facility] BMI 2022-12-11 13:55:00 35.43 kg/m2 [facility] Body temperature 2022-12-11 13:55:00 37.22 Radha [facility] Body weight 2022-12-11 13:55:00 90.719 kg [facility] Systolic blood pressure 2022-11-18 05:34:00 152 mm[Hg] [facility] Diastolic blood pressure 2022-11-18 05:34:00 98 mm[Hg] [facility] Heart rate 2022-11-18 05:34:00 88 /min [facility] Respiratory rate 2022-11-18 05:34:00 18 /min [facility] Oxygen saturation in Arterial blood by Pulse oximetry 2022-11-18 05:34:00 97 /min [facility] Body temperature 2022-11-17 22:28:00 37.06 [facility] Body height 2022-11-17 22:28:00 160 cm [facility] Body weight 2022-11-17 22:28:00 99.791 kg [facility] BMI 2022-11-17 22:28:00 38.97 kg/m2 [facility] Heart rate 2022-08-02 02:02:00 108 /min [facility] Respiratory rate 2022-08-02 02:02:00 28 /min [facility] Oxygen saturation in Arterial blood by Pulse oximetry 2022-08-02 02:02:00 97 /min [facility] Body temperature 2022-08-02 01:00:00 36.44 [facility] Systolic blood pressure 2022-08-01 23:29:00 145 mm[Hg] [facility] Diastolic blood pressure 2022-08-01 23:29:00 103 mm[Hg] [facility] Body weight 2022-08-01 09:16:00 97.977 kg [facility] BMI 2022-08-01 09:16:00 38.26 kg/m2 [facility] Body height 2022-07-31 21:54:00 160 cm [facility] Systolic blood pressure 2022-05-08 16:40:00 146 mm[Hg] [facility] Diastolic blood pressure 2022-05-08 16:40:00 96 mm[Hg] [facility] Heart rate 2022-05-08 16:40:00 112 /min [facility] Body temperature 2022-05-08 16:40:00 36.78 Radha [facility] Respiratory rate 2022-05-08 16:40:00 18 /min [facility] Oxygen saturation in Arterial blood by Pulse oximetry 2022-05-08 16:40:00 94 /min [facility] Body height 2022-05-05 23:44:00 160 cm [facility] Body weight 2022-05-05 23:37:00 81.647 kg [facility] BMI 2022-05-05 23:37:00 31.89 kg/m2 [facility] Systolic blood pressure 2022-04-15 18:52:00 104 mm[Hg] [facility] Diastolic blood pressure 2022-04-15 18:52:00 82 mm[Hg] [facility] Heart rate 2022-04-15 18:52:00 114 /min [facility] Oxygen saturation in Arterial blood by Pulse oximetry 2022-04-15 18:52:00 98 /min [facility] Body temperature 2022-04-15 16:14:00 36.28 Radha [facility] Respiratory rate 2022-04-15 16:14:00 17 /min [facility] Body height 2022-04-13 21:08:00 160 cm [facility] Body weight 2022-04-13 21:08:00 91.173 kg [facility] BMI 2022-04-13 21:08:00 35.61 kg/m2 [facility] Systolic blood pressure 2021-11-23 21:30:00 132 mm[Hg] [facility] Diastolic blood pressure 2021-11-23 21:30:00 76 mm[Hg] [facility] Heart rate 2021-11-23 21:30:00 95 /min [facility] Respiratory rate 2021-11-23 21:30:00 13 /min [facility] Oxygen saturation in Arterial blood by Pulse oximetry 2021-11-23 21:30:00 97 /min [facility] Body temperature 2021-11-23 20:15:00 37.56 Radha [facility] Systolic blood pressure 2021-03-17 03:00:00 117 mm[Hg] [facility] Diastolic blood pressure 2021-03-17 03:00:00 76 mm[Hg] [facility] Heart rate 2021-03-17 03:00:00 104 /min [facility] Respiratory rate 2021-03-17 03:00:00 28 /min [facility] Oxygen saturation in Arterial blood by Pulse oximetry 2021-03-17 03:00:00 96 /min [facility] Body temperature 2021-03-17 00:39:00 37.11 Radha [facility] Body height 2021-03-17 00:39:00 160 cm [facility] Body weight 2021-03-17 00:39:00 58.968 kg [facility] BMI 2021-03-17 00:39:00 23.03 kg/m2 [facility] Systolic blood pressure 2021-03-15 00:14:00 149 mm[Hg] [facility] Diastolic blood pressure 2021-03-15 00:14:00 78 mm[Hg] [facility] Heart rate 2021-03-15 00:14:00 100 /min [facility] Body temperature 2021-03-15 00:14:00 37.33 Radha [facility] Respiratory rate 2021-03-15 00:14:00 24 /min [facility] Body height 2021-03-15 00:14:00 160 cm [facility] Body weight 2021-03-15 00:14:00 58.968 kg [facility] BMI 2021-03-15 00:14:00 23.03 kg/m2 [facility] Oxygen saturation in Arterial blood by Pulse oximetry 2021-03-15 00:14:00 98 /min [facility] Systolic blood pressure 2021-02-19 18:00:00 131 mm[Hg] [facility] Diastolic blood pressure 2021-02-19 18:00:00 80 mm[Hg] [facility] Heart rate 2021-02-19 18:00:00 83 /min [facility] Respiratory rate 2021-02-19 18:00:00 18 /min [facility] Oxygen saturation in Arterial blood by Pulse oximetry 2021-02-19 18:00:00 100 /min [facility] Body temperature 2021-02-19 15:47:00 37 Radha [facility] Body height 2021-02-19 15:47:00 160 cm [facility] Body weight 2021-02-19 15:47:00 58.968 kg [facility] BMI 2021-02-19 15:47:00 23.03 kg/m2 [facility] Heart rate 2023-09-08 08:54:00 118 /min [facility] Respiratory rate 2023-09-08 08:54:00 21 /min [facility] Oxygen saturation in Arterial blood by Pulse oximetry 2023-09-08 08:54:00 100 /min [facility] Systolic blood pressure 2023-09-08 08:32:00 110 mm[Hg] [facility] Diastolic blood pressure 2023-09-08 08:32:00 77 mm[Hg] [facility] Body temperature 2023-09-08 08:32:00 36.06 Radha [facility] Body height 2023-09-04 00:58:00 157.5 cm [facility] Body weight 2023-09-04 00:58:00 80 kg [facility] BMI 2023-09-04 00:58:00 32.26 kg/m2 [facility] Heart rate 2023-06-16 17:00:00 108 /min [facility] Systolic blood pressure 2023-06-16 15:31:00 101 mm[Hg] [facility] Diastolic blood pressure 2023-06-16 15:31:00 81 mm[Hg] [facility] Body temperature 2023-06-16 15:31:00 36.61 Radha [facility] Respiratory rate 2023-06-16 15:31:00 18 /min [facility] Oxygen saturation in Arterial blood by Pulse oximetry 2023-06-16 15:31:00 94 /min [facility] Body weight 2023-06-16 05:26:00 86.047 kg [facility] BMI 2023-06-16 05:26:00 33.60 kg/m2 [facility] Body height 2023-06-13 04:00:00 160 cm [facility] Systolic blood pressure 2023-06-04 13:02:00 93 mm[Hg] [facility] Diastolic blood pressure 2023-06-04 13:02:00 57 mm[Hg] [facility] Heart rate 2023-06-04 13:02:00 101 /min [facility] Respiratory rate 2023-06-04 13:02:00 22 /min [facility] Oxygen saturation in Arterial blood by Pulse oximetry 2023-06-04 13:02:00 95 /min room air [facility] Body temperature 2023-06-04 11:46:00 35.28 Radha [facility] Systolic blood pressure 2023-05-28 16:00:00 154 mm[Hg] [facility] Diastolic blood pressure 2023-05-28 16:00:00 82 mm[Hg] [facility] Heart rate 2023-05-28 16:00:00 89 /min [facility] Body temperature 2023-05-28 16:00:00 36.67 Radha [facility] Respiratory rate 2023-05-28 16:00:00 16 /min [facility] Oxygen saturation in Arterial blood by Pulse oximetry 2023-05-28 16:00:00 97 /min [facility] Body height 2023-05-28 07:00:00 157.5 cm [facility] Body weight 2023-05-28 07:00:00 87.544 kg [facility] BMI 2023-05-28 07:00:00 35.30 kg/m2 [facility] Body height 2023-05-26 09:12:00 157.5 cm [facility] Body weight 2023-05-26 09:12:00 87.091 kg [facility] BMI 2023-05-26 09:12:00 35.12 kg/m2 [facility] Respiratory rate 2023-04-02 16:35:00 18 /min [facility] Oxygen saturation in Arterial blood by Pulse oximetry 2023-04-02 16:35:00 98 /min [facility] Systolic blood pressure 2023-04-02 12:00:00 147 mm[Hg] [facility] Diastolic blood pressure 2023-04-02 12:00:00 97 mm[Hg] [facility] Heart rate 2023-04-02 12:00:00 106 /min [facility] Body temperature 2023-04-02 12:00:00 36.28 Radha [facility] Body height 2023-03-30 02:14:00 157.5 cm [facility] Body weight 2023-03-30 02:14:00 92.08 kg [facility] BMI 2023-03-30 02:14:00 37.13 kg/m2 [facility] Respiratory rate 2022-08-03 14:40:00 18 /min [facility] Systolic blood pressure 2022-08-03 12:13:00 112 mm[Hg] [facility] Diastolic blood pressure 2022-08-03 12:13:00 77 mm[Hg] [facility] Heart rate 2022-08-03 12:13:00 115 /min [facility] Oxygen saturation in Arterial blood by Pulse oximetry 2022-08-03 12:13:00 93 /min [facility] Body temperature 2022-08-03 12:00:00 36.83 Radha [facility] Body height 2022-08-02 21:52:00 160.2 cm [facility] Body weight 2022-08-02 21:52:00 95 kg [facility] BMI 2022-08-02 21:52:00 37.02 kg/m2 [facility] BP Systolic 2022-07-24 13:31:00 136 mm[Hg] [...] GLUCOSE, BUN, CREATININE, CA) 2024-04-03 01:58:00 [facility] CBC WITH DIFF 2024-04-03 01:58:00 [facility] N-TERMINAL PRO-BNP 2024-04-03 01:58:00 [facility] EKG-12 LEAD 2024-01-13 04:42:14 Radha Wyatt [facility] TROPONIN I 2024-01-13 03:20:00 Radha Wyatt [facility] COMP. METABOLIC PANEL ([id number]) 2024-01-13 03:20:00 Radha Wyatt [facility] CBC WITH DIFF 2024-01-13 03:20:00 Radha Wyatt [facility] TRANSTHORACIC ECHO (TTE) LIMITED W/ DOPPLER, COLOR AND CONTRAST 2024-01-10 13:07:00 Darrick Altamirano [facility] MAGNESIUM 2024-01-10 09:16:00 Darrick Altamirano [facility] TROPONIN I 2024-01-10 09:16:00 Darrick Altamirano [facility] BASIC METABOLIC PANEL (NA, K , CL, CO2, GLUCOSE, BUN, CREATININE, CA) 2024-01-10 09:16:00 Darrick Altamirano [facility] LIPID PANEL ([id number])(TOTAL CHOLESTEROL, TRIGLYCERIDES, HDL) 2024-01-10 09:16:00 Darrick Altamirano [facility] CBC WITH DIFF 2024-01-10 09:16:00 Darrick Altamirano [facility] PROTHROMBIN TIME / INR 2024-01-10 09:16:00 Darrick Altamirano [facility] ACTIVATED PARTIAL THRMPLAS DAVID 2024-01-10 09:16:00 Darrick Altamirano [facility] N-TERMINAL PRO-BNP 2024-01-10 09:16:00 Darrick Altamirano [facility] PHOSPHORUS 2024-01-10 04:58:00 Darrick Altamirano [facility] BLOOD CULTURE SCREEN 2024-01-10 02:39:00 Alfonso Alvarado [facility] BLOOD CULTURE SCREEN 2024-01-10 02:20:00 Alfonso Alvarado [facility] LACTIC ACID WHOLE BLOOD 2024-01-10 01:52:00 Alfonso Alvarado [facility] CT CHEST PULMONARY ANGIOGRAM 2024-01-09 23:59:01 Abundio [facility] XR CHEST 1 VW 2024-01-09 21:49:00 Abundio [facility] TROPONIN I 2024-01-09 21:39:00 Abundio [facility] COMP. METABOLIC PANEL ([id number]) 2024-01-09 21:39:00 [facility] CBC WITH DIFF 2024-01-09 21:39:00 Abundio [facility] D-DIMER 2024-01-09 21:39:00 Abundio [facility] N-TERMINAL PRO-BNP 2024-01-09 21:39:00 Abundio [facility] HB ECG ROUTINE & RHYTHM STRIP 2024-01-09 21:13:02 Abundio [facility] POCT GLUCOSE (AUTOMATED) 2023-12-15 12:43:00 Reema [facility] MAGNESIUM 2023-12-15 10:26:00 Reema [facility] TROPONIN I 2023-12-15 10:26:00 Reema [facility] BASIC METABOLIC PANEL (NA, K , CL, CO2, GLUCOSE, BUN, CREATININE, CA) 2023-12-15 10:26:00 Reema [facility] CBC WITH DIFF 2023-12-15 10:26:00 Daria [facility] N-TERMINAL PRO-BNP 2023-12-15 10:26:00 Reema [facility] TROPONIN I 2023-12-15 03:21:00 Reema [facility] FREE T4 2023-12-15 03:21:00 Reema [facility] DIGOXIN 2023-12-15 03:21:00 Daria [facility] POCT GLUCOSE (AUTOMATED) 2023-12-15 00:56:00 Reema [facility] TROPONIN I 2023-12-14 21:05:[address] [facility] [place] [place] THYROID STIMULATING HORMONE 2023-12-14 21:05:00 Reema [facility] FREE T3 2023-12-14 21:05:00 Reema [facility] XR CHEST 1 VW 2023-12-14 19:25:[address] [facility] [place] [place] TROPONIN I 2023-12-14 19:19:[address] [facility] [place] [place] COMP. METABOLIC PANEL ([id number]) 2023-12-14 19:19:[address] [facility] [place] [place] CBC WITH DIFF 2023-12-14 19:19:[address] [facility] [place] [place] D-DIMER 2023-12-14 19:19:[address] [facility] [place] [place] N-TERMINAL PRO-BNP 2023-12-14 19:19:[address] [facility] [place] [place] EKG-12 LEAD 2023-12-14 18:38:57 [place], [facility] POCT GLUCOSE (AUTOMATED) 2023-12-03 21:23:00 Connor Renee [facility] BASIC METABOLIC PANEL (NA, K , CL, CO2, GLUCOSE, BUN, CREATININE, CA) 2023-12-03 17:58:00 Mukesh Tabor [facility] POCT GLUCOSE (AUTOMATED) 2023-12-03 16:51:00 Connor Renee [facility] POCT GLUCOSE (AUTOMATED) 2023-12-03 13:00:00 Connor Renee [facility] MAGNESIUM 2023-12-03 09:21:00 Ginny Mariaelena [facility] HEPATIC FUNCTION PANEL ([id number]) (ALB,T.PRO,BILI T,BU/BC,ALT,AST,ALK PHOS) 2023-12-03 09:21:00 Ginny Mariaelena [facility] BASIC METABOLIC PANEL (NA, K , CL, CO2, GLUCOSE, BUN, CREATININE, CA) 2023-12-03 09:21:00 Ginny Mariaelena [facility] AC PANEL 21 + LACTIC ACID 2023-12-03 01:45:00 Ginny Mariaelena [facility] MRSA / MSSA SCREEN BY PCRRED 2023-12-03 01:45:00 Ginny Mariaelena [facility] CT CHEST PULMONARY ANGIOGRAM 2023-12-02 19:32:14 Connor Renee [facility] XR CHEST 1 VW 2023-12-02 19:04:00 Connor Renee [facility] BLOOD CULTURE SCREEN 2023-12-02 18:53:00 Connor Renee [facility] TROPONIN I 2023-12-02 18:53:00 Connor Renee [facility] COMP. METABOLIC PANEL ([id number]) 2023-12-02 18:53:00 Connor Renee [facility] CBC WITH DIFF 2023-12-02 18:53:00 Connor Renee [facility] RAPID INFLUENZA A/B 2023-12-02 18:53:00 Connor Renee [facility] N-TERMINAL PRO-BNP 2023-12-02 18:53:00 Connor Renee [facility] COVID-19 (ID NOW RAPID TESTING) 2023-12-02 18:53:00 Connor Renee [facility] BLOOD CULTURE SCREEN 2023-12-02 18:49:00 Connor Renee [facility] AC ABG + LACTIC ACID 2023-12-02 18:26:00 Connor Renee [facility] HB ECG ROUTINE & RHYTHM STRIP 2023-12-02 18:06:10 Connor Renee [facility] POCT GLUCOSE (AUTOMATED) 2023-11-28 16:40:00 Cr Altamirano [facility] PHOSPHORUS 2023-11-28 09:22:00 Leander [facility] MAGNESIUM 2023-11-28 09:22:00 Leander [facility] COMP. METABOLIC PANEL ([id number]) 2023-11-28 09:22:00 Leander [facility] CBC WITH DIFF 2023-11-28 09:22:00 Leander [facility] N-TERMINAL PRO-BNP 2023-11-28 09:22:00 Torrey Baez [facility] POCT GLUCOSE (AUTOMATED) 2023-11-28 01:31:00 Lorenzo Ventura [facility] POCT GLUCOSE (AUTOMATED) 2023-11-27 21:45:00 Lorenzo Hemrosalie [facility] POCT GLUCOSE (AUTOMATED) 2023-11-27 16:30:00 Lorenzo Hemrosalie [facility] POCT GLUCOSE (AUTOMATED) 2023-11-27 12:39:00 Lorenzo Ventura [facility] LACTIC ACID WHOLE BLOOD 2023-11-27 06:35:00 Leander [facility] MAGNESIUM 2023-11-27 06:34:00 Leander [facility] COMP. METABOLIC PANEL ([id number]) 2023-11-27 06:34:00 Leander [facility] URINE DRUG (IMMUNOASSAY) - COMPREHENSIVE DRUG SCREEN 2023-11-27 03:59:00 Leander [facility] POCT GLUCOSE (AUTOMATED) 2023-11-27 02:25:00 Lorenzo Ventura [facility] CT HEAD WO CONTRAST 2023-11-26 21:56:31 Leander [facility] MAGNESIUM 2023-11-26 21:32:00 Leander [facility] COMP. METABOLIC PANEL ([id number]) 2023-11-26 21:32:00 Leander [facility] POCT GLUCOSE (AUTOMATED) 2023-11-26 21:11:00 Lorenzo Ventura [facility] VALPROIC ACID, FREE 2023-11-26 18:07:00 Leander [facility] KEPPRA (LEVETIRACETAM) 2023-11-26 18:07:00 Leander [facility] LACTIC ACID WHOLE BLOOD 2023-11-26 18:07:00 Leander [facility] POCT GLUCOSE (AUTOMATED) 2023-11-26 17:05:00 Lorenzo Ventura [facility] MAGNESIUM 2023-11-26 13:28:00 Raghu Castellanos [facility] VITAMIN B12, LEVEL 2023-11-26 13:28:00 Leander [facility] FOLATE 2023-11-26 13:28:00 Leander [facility] COMP. METABOLIC PANEL ([id number]) 2023-11-26 13:28:00 Raghu Castellanos [facility] CBC WITH DIFF 2023-11-26 13:28:00 Leander [facility] LACTIC ACID WHOLE BLOOD 2023-11-26 09:52:00 Robinson Shin [facility] POCT GLUCOSE (AUTOMATED) 2023-11-26 02:13:00 Lorenzo Ventura [facility] LACTIC ACID WHOLE BLOOD 2023-11-26 00:53:00 Raghu Castellanos [facility] ELECTROENCEPHALOGRAM 2023-11-26 00:00:00 Leander [facility] POCT GLUCOSE (AUTOMATED) 2023-11-25 20:59:00 Lorenzo Ventura [facility] LACTIC ACID WHOLE BLOOD 2023-11-25 20:56:00 Raghu Castellanos [facility] MAGNESIUM 2023-11-25 20:55:00 Raghu Castellanos [facility] COMP. METABOLIC PANEL ([id number]) 2023-11-25 20:55:00 Raghu Castellanos [facility] POCT GLUCOSE (AUTOMATED) 2023-11-25 16:58:00 Lorenzo Ventura [facility] POCT GLUCOSE (AUTOMATED) 2023-11-25 13:04:00 Lorenzo Ventura [facility] LACTIC ACID WHOLE BLOOD 2023-11-25 09:25:00 [facility] MAGNESIUM 2023-11-25 09:24:00 Raghu Castellanos [facility] COMP. METABOLIC PANEL ([id number]) 2023-11-25 09:24:00 [facility] CBC WITH DIFF 2023-11-25 09:24:00 Leander [facility] MAGNESIUM 2023-11-25 04:52:00 Leander [facility] COMP. METABOLIC PANEL ([id number]) 2023-11-25 04:52:00 Leander [facility] LACTIC ACID WHOLE BLOOD 2023-11-25 04:52:00 Leander [facility] POCT GLUCOSE (AUTOMATED) 2023-11-25 03:00:00 Lorenzo Ventura [facility] TROPONIN I 2023-11-25 02:59:00 [facility] COMP. METABOLIC PANEL ([id number]) 2023-11-25 02:59:00 Jessica [facility] HIV 1/2 AG-AB WITH REFLEX 2023-11-25 02:59:[address] [facility] [address] ABDOMEN PELVIS W CONTRAST 2023-11-24 22:24:00 Leander [facility] POCT GLUCOSE (AUTOMATED) 2023-11-24 21:21:00 Lorenzo Hemrosalie [facility] MAGNESIUM 2023-11-24 21:08:00 Leander [facility] COMP. METABOLIC PANEL ([id number]) 2023-11-24 21:08:00 Leander [facility] LACTIC ACID WHOLE BLOOD 2023-11-24 21:08:00 Nestor Lopez [facility] POCT GLUCOSE (AUTOMATED) 2023-11-24 17:43:00 Lorenzo Hemrosalie [facility] POCT GLUCOSE (AUTOMATED) 2023-11-24 17:43:00 Lorenzo Hemrosalie [facility] MAGNESIUM 2023-11-24 15:47:00 Leander [facility] COMP. METABOLIC PANEL ([id number]) 2023-11-24 15:47:00 Leander [facility] ACTIVATED PARTIAL THRMPLAS DAVID 2023-11-24 15:47:00 Uli [facility] LACTIC ACID WHOLE BLOOD 2023-11-24 15:47:00 [place], [facility] MAGNESIUM 2023-11-24 15:47:00 Leander [facility] COMP. METABOLIC PANEL ([id number]) 2023-11-24 15:47:00 Leander [facility] ACTIVATED PARTIAL THRMPLAS DAVID 2023-11-24 15:47:00 Uli [facility] LACTIC ACID WHOLE BLOOD 2023-11-24 15:47:00 Leander [facility] POCT GLUCOSE (AUTOMATED) 2023-11-24 12:33:00 Lorenzo Ventura [facility] POCT GLUCOSE (AUTOMATED) 2023-11-24 12:33:00 Lorenzo Hemrosalie [facility] MAGNESIUM 2023-11-24 10:03:00 Leander [facility] COMP. METABOLIC PANEL ([id number]) 2023-11-24 10:03:00 Leander [facility] CBC WITH DIFF 2023-11-24 10:03:00 Leander [facility] LACTIC ACID WITH 3 HOUR REFLEX 2023-11-24 10:03:00 Leander [facility] MAGNESIUM 2023-11-24 10:03:00 Leander [facility] COMP. METABOLIC PANEL ([id number]) 2023-11-24 10:03:00 Leander [facility] CBC WITH DIFF 2023-11-24 10:03:00 Leander [facility] LACTIC ACID WITH 3 HOUR REFLEX 2023-11-24 10:03:00 Leander [facility] ACTIVATED PARTIAL THRMPLAS DAVID 2023-11-24 06:13:00 Uli [facility] ACTIVATED PARTIAL THRMPLAS DAVID 2023-11-24 06:13:00 Uli [facility] POCT GLUCOSE (AUTOMATED) 2023-11-24 03:15:00 Lorenzo Ventura [facility] POCT GLUCOSE (AUTOMATED) 2023-11-24 03:15:00 Lorenzo Ventura [facility] ACTIVATED PARTIAL THRMPLAS DAVID 2023-11-23 23:09:00 [facility] 2023-11-23 23:09:00 Uli [facility] POCT GLUCOSE (AUTOMATED) 2023-11-23 21:28:00 Lorenzo Ventura [facility] POCT GLUCOSE (AUTOMATED) 2023-11-23 21:28:00 Lorenzo Ventura [facility] CATH PROCEDURE LOG 2023-11-23 20:38:36 Lisandra [facility] CATH PROCEDURE LOG 2023-11-23 20:38:36 Lisandra [facility] CARDIAC CATHETERIZATION 2023-11-23 20:11:00 [facility]23 20:11[facility]00 [facility]23-11-23 20:11:00 [facility] 2023-11-23 20:11:00 Lisandra [facility] POCT GLUCOSE (AUTOMATED) 2023-11-23 17:18:00 Lorenzo Ventura [facility] POCT GLUCOSE (AUTOMATED) 2023-11-23 17:18:00 Lorenzo Hemrosalie [facility] POCT GLUCOSE (AUTOMATED) 2023-11-23 16:50:00 Lorenzo Ventura [facility] POCT GLUCOSE (AUTOMATED) 2023-11-23 16:50:00 Lorenzo Sissydianna [facility] ACTIVATED PARTIAL THRMPLAS DAVID 2023-11-23 15:13:00 Uli [facility] ACTIVATED PARTIAL THRMPLAS DAVID 2023-11-23 15:13:00 Uli [facility] LACTIC ACID WHOLE BLOOD 2023-11-23 15:12:00 Aleida [facility] LACTIC ACID WHOLE BLOOD 2023-11-23 15:12:00 Aleida [facility] POCT GLUCOSE (AUTOMATED) 2023-11-23 12:47:00 Lorenzo Sissydianna [facility] POCT GLUCOSE (AUTOMATED) 2023-11-23 12:47:00 Lorenzo Hemsirishadianna [facility] MAGNESIUM 2023-11-23 07:52:00 Louise [facility] HEPATIC FUNCTION PANEL ([id number]) (ALB,T.PRO,BILI T,BU/BC,ALT,AST,ALK PHOS) 2023-11-23 07:52:00 Mukesh Tabor [facility] BASIC METABOLIC PANEL (NA, K , CL, CO2, GLUCOSE, BUN, CREATININE, CA) 2023-11-23 07:52:00 Louise [facility] CBC WITH DIFF 2023-11-23 07:52:00 Louise [facility] ACTIVATED PARTIAL THRMPLAS DAVID 2023-11-23 07:52:00 Uli [facility] LACTIC ACID WHOLE BLOOD 2023-11-23 07:52:00 Robinson Shin [facility] MAGNESIUM 2023-11-23 07:52:00 Louise [facility] HEPATIC FUNCTION PANEL ([id number]) (ALB,T.PRO,BILI T,BU/BC,ALT,AST,ALK PHOS) 2023-11-23 07:52:00 Leander [facility] BASIC METABOLIC PANEL (NA, K , CL, CO2, GLUCOSE, BUN, CREATININE, CA) 2023-11-23 07:52:00 Louise [facility] CBC WITH DIFF 2023-11-23 07:52:00 Louise [facility] ACTIVATED PARTIAL THRMPLAS DAVID 2023-11-23 07:52:00 Cris Mcnally [facility] LACTIC ACID WHOLE BLOOD 2023-11-23 07:52:00 Aleida [facility] LACTIC ACID WHOLE BLOOD 2023-11-23 05:00:00 Aleida [facility] LACTIC ACID WHOLE BLOOD 2023-11-23 05:00:00 Aleida [facility] LACTIC ACID WHOLE BLOOD 2023-11-23 03:12:00 Aleida [facility] LACTIC ACID WHOLE BLOOD 2023-11-23 03:12:00 Aleida [facility] LACTIC ACID WHOLE BLOOD 2023-11-23 00:57:00 Aleida [facility] LACTIC ACID WHOLE BLOOD 2023-11-23 00:57:00 Aleida [facility] POCT GLUCOSE (AUTOMATED) 2023-11-23 00:56:00 Lorenzo Ventura [facility] POCT GLUCOSE (AUTOMATED) 2023-11-23 00:56:00 Lorenzo Ventura [facility] LACTIC ACID WHOLE BLOOD 2023-11-22 23:49:00 Aleida [facility] LACTIC ACID WHOLE BLOOD 2023-11-22 23:49:00 Aleida [facility] POCT GLUCOSE (AUTOMATED) 2023-11-22 21:49:00 Lorenzo Ventura [facility] POCT GLUCOSE (AUTOMATED) 2023-11-22 21:49:00 Lorenzo Ventura [facility] LACTIC ACID WHOLE BLOOD 2023-11-22 21:41:00 Leander [facility] LACTIC ACID WHOLE BLOOD 2023-11-22 21:41:00 Leander [facility] POCT GLUCOSE (AUTOMATED) 2023-11-22 21:01:00 Lorenzo Urielrosalie [facility] POCT GLUCOSE (AUTOMATED) 2023-11-22 21:01:00 Lorenzo Ventura [facility] ACTIVATED PARTIAL THRMPLAS DAVID 2023-11-22 19:46:00 [facility] 2023-11-22 19:46:00 Tabor, [facility] ACTIVATED PARTIAL THRMPLAS DAVID 2023-11-22 19:46:00 [facility] 2023-11-22 19:46:00 Leander [facility] LACTIC ACID WHOLE BLOOD 2023-11-22 17:22:00 Faby [facility] LACTIC ACID WHOLE BLOOD 2023-11-22 17:22:00 Faby [facility] POCT GLUCOSE (AUTOMATED) 2023-11-22 17:00:[address] [facility] POCT GLUCOSE (AUTOMATED) 2023-11-22 17:00:00 [facility] EXTREMITY ARTERIAL DUPLEX BILATERAL - BY VASCULAR LAB 2023-11-22 16:43:47 Faby [facility] LOWER EXTREMITY ARTERIAL DUPLEX BILATERAL - BY VASCULAR LAB 2023-11-22 16:43:47 Faby [facility] TRANSTHORACIC ECHO (TTE) COMPLETE W/ CONTRAST 2023-11-22 15:50:00 [facility] TRANSTHORACIC ECHO (TTE) COMPLETE W/ CONTRAST 2023-11-22 15:50:00 Cris Mcnally [facility] US ABDOMEN LIMITED 2023-11-22 14:54:18 [facility] 2023-11-22 14:54:18 Faby [facility] HB ECG ROUTINE & RHYTHM STRIP 2023-11-22 14:28:42 Janeth Gil [facility] HB ECG ROUTINE & RHYTHM STRIP 2023-11-22 14:28:42 Janeth Gil [facility] COMP. METABOLIC PANEL (20155) 2023-11-22 14:26:00 Uli [facility] IRON PANEL 2023-11-22 14:26:00 Uli [facility] LACTIC ACID WHOLE BLOOD 2023-11-22 14:26:00 Eric Hobbs [facility] COMP. METABOLIC PANEL ([id number]) 2023-11-22 14:26:00 Uli [facility] IRON PANEL 2023-11-22 14:26:00 Uli [facility] LACTIC ACID WHOLE BLOOD 2023-11-22 14:26:00 Faby [facility] POCT GLUCOSE (AUTOMATED) 2023-11-22 13:26:[address] [facility] POCT GLUCOSE (AUTOMATED) 2023-11-22 13:26:[address] [facility] CT CHEST PULMONARY ANGIOGRAM 2023-11-22 13:10:36 Uli [facility] CT CHEST PULMONARY ANGIOGRAM 2023-11-22 13:10:36 Uli [facility] PHOSPHORUS 2023-11-22 11:45:00 Uli [facility] CREATINE KINASE 2023-11-22 11:45:00 Louise Janeth [facility] FERRITIN SERUM 2023-11-22 11:45:00 Uli [facility] TROPONIN I 2023-11-22 11:45:00 Uli [facility] LIPID PANEL ([id number])(TOTAL CHOLESTEROL, TRIGLYCERIDES, HDL) 2023-11-22 11:45:00 Uli [facility] CBC WITH DIFF 2023-11-22 11:45:00 Uli [facility] GLYCOSYLATED HEMOGLOBIN (A1C) 2023-11-22 11:45:00 Uli [facility] PHOSPHORUS 2023-11-22 11:45:00 Uli [facility] CREATINE KINASE 2023-11-22 11:45:00 Janeth Gil [facility] FERRITIN SERUM 2023-11-22 11:45:00 Uli [facility] TROPONIN I 2023-11-22 11:45:00 Uli [facility] LIPID PANEL ([id number])(TOTAL CHOLESTEROL, TRIGLYCERIDES, HDL) 2023-11-22 11:45:00 Uli [facility] CBC WITH DIFF 2023-11-22 11:45:00 Uli [facility] GLYCOSYLATED HEMOGLOBIN (A1C) 2023-11-22 11:45:00 Uli [facility] BLOOD CULTURE SCREEN 2023-11-22 09:37:00 Uli [facility] BLOOD CULTURE SCREEN 2023-11-22 09:37:00 Uli [facility] BLOOD CULTURE SCREEN 2023-11-22 09:36:00 Uli [facility] BLOOD CULTURE SCREEN 2023-11-22 09:36:00 Uli [facility] US LOWER EXTREMITY VEIN WITH COMPRESSION BILATERAL (ONLY FOR RULE OUT DVT) 2023-11-22 08:09:01 Uli [facility] US LOWER EXTREMITY VEIN WITH COMPRESSION BILATERAL (ONLY FOR RULE OUT DVT) 2023-11-22 08:09:01 Uli [facility] LACTIC ACID WHOLE BLOOD 2023-11-22 08:03:00 Uli [facility] LACTIC ACID WHOLE BLOOD 2023-11-22 08:03:00 Uli [facility] MAGNESIUM 2023-11-22 08:02:00 Uli [facility] TROPONIN I 2023-11-22 08:02:00 Uli [facility] PROTHROMBIN TIME / INR 2023-11-22 08:02:00 Uli [facility] D-DIMER 2023-11-22 08:02:00 Uli [facility] ACTIVATED PARTIAL THRMPLAS DAVID 2023-11-22 08:02:00 Uli, [facility] PROCALCITONIN 2023-11-22 08:02:00 Uli [facility] MAGNESIUM 2023-11-22 08:02:00 Uli [facility] TROPONIN I 2023-11-22 08:02:00 Uli [facility] PROTHROMBIN TIME / INR 2023-11-22 08:02:00 Uli [facility] D-DIMER 2023-11-22 08:02:00 Uli [facility] ACTIVATED PARTIAL THRMPLAS DAVID 2023-11-22 08:02:00 Uli [facility] PROCALCITONIN 2023-11-22 08:02:00 Uli [facility] XR SHOULDER 2+ VW RIGHT 2023-11-22 07:33:00 Uli [facility] XR SHOULDER 2+ VW RIGHT 2023-11-22 07:33:00 Uli [facility] URINALYSIS 2023-11-22 04:33:00 [facility] URINE DRUG (IMMUNOASSAY) - COMPREHENSIVE DRUG SCREEN W/O REFLEX 2023-11-22 04:33:00 Alcon [facility] URINALYSIS 2023-11-22 04:33:00 [facility] URINE DRUG (IMMUNOASSAY) - COMPREHENSIVE DRUG SCREEN W/O REFLEX 2023-11-22 04:33:00 Megan Rondon [facility] PROTHROMBIN TIME / INR 2023-11-22 04:25:00 Megan Rondon [facility] ACTIVATED PARTIAL THRMPLAS DAVID 2023-11-22 04:25:00 [facility] PROTHROMBIN TIME / INR 2023-11-22 04:25:00 [facility] ACTIVATED PARTIAL THRMPLAS DAVID 2023-11-22 04:25:00 Megan Rondon [facility] CRITICAL CARE 2023-11-22 04:18:14 Megan Rondon [facility] CRITICAL CARE 2023-11-22 04:18:14 Megan Rondon [facility] FREE T4 2023-11-22 02:57:00 [facility] THYROID STIMULATING HORMONE 2023-11-22 02:57:00 [facility] RAPID INFLUENZA A/B 2023-11-22 02:57:00 [facility] COVID-19 (ID NOW RAPID TESTING) 2023-11-22 02:57:00 [facility] LAB ONLY COVID INTERPRETATION 2023-11-22 02:57:00 Megan Rondon [facility] FREE T4 2023-11-22 02:57:00 [facility] THYROID STIMULATING HORMONE 2023-11-22 02:57:00 [facility] RAPID INFLUENZA A/B 2023-11-22 02:57:00 [facility] COVID-19 (ID NOW RAPID TESTING) 2023-11-22 02:57:00 [facility] LAB ONLY COVID INTERPRETATION 2023-11-22 02:57:00 [facility] AMYLASE 2023-11-22 02:52:00 [facility] LIPASE 2023-11-22 02:52:00 [facility]con [facility] TROPONIN I 2023-11-22 02:52:00 Alcon [facility] COMP. METABOLIC PANEL ([id number]) 2023-11-22 02:52:00 [facility] CBC WITH DIFF 2023-11-22 02:52:00 [facility] N-TERMINAL PRO-BNP 2023-11-22 02:52:00 [facility] AMYLASE 2023-11-22 02:52:00 [facility] LIPASE 2023-11-22 02:52:00 Alcon [facility] TROPONIN I 2023-11-22 02:52:00 [facility] COMP. METABOLIC PANEL ([id number]) 2023-11-22 02:52:00 [facility] CBC WITH DIFF 2023-11-22 02:52:00 Rondon, Megan [facility] N-TERMINAL PRO-BNP 2023-11-22 02:52:00 Megan Rondon [facility] XR CHEST 1 VW 2023-11-22 02:34:13 Megan Rondon [facility] XR CHEST 1 VW 2023-11-22 02:34:13 Megan Rondon [facility] HB ECG ROUTINE & RHYTHM STRIP 2023-11-22 02:16:24 Megan Rondon [facility] POCT-GLUCOSE METER 2023-09-08 08:40:00 Bud [facility] CBC W/PLT COUNT & AUTO DIFFERENTIAL 2023-09-08 04:16[facility] 2023-09-08 04:16[facility]00 [facility] MAG[facility] 2023-09-08 04:16:00 [facility] PHOSPHORUS 2023-09-08 04:16:00 [facility] CBC W/PLT COUNT & AUTO DIFFERENTIAL 2023-09-08 04:16:00 [facility] POCT-GLUCOSE METER 2023-09-07 21:29:00 Bud [facility] XR KNEE 3 VIEWS LEFT 2023-09-07 19:21:02 [facility] VEN[facility] DOPPLER LEGS BILATERAL 2023-09-07 12:45:00 [facility] CBC W/PLT COUNT & AUTO DIFFERENTIAL 2023-09-07 03:17:00 [facility] BASIC [facility]OLIC PANEL 2023-09-07 03:17:00 [facility] MAG[facility] 2023-09-07 03:17:00 [facility] PHOS[facility]US 2023-09-07 03:17:00 [facility] CBC W/PLT COUNT & AUTO DIFFERENTIAL 2023-09-07 03:17:00 [facility] POCT-GLUCOSE METER 2023-09-06 21:17:00 [facility] POCT-[facility]SE METER 2023-09-06 18:37:00 [facility] POCT-[facility]SE METER 2023-09-06 13:16:00 Ferrer [facility] POCT-GLUCOSE METER 2023-09-06 08:21:00 [facility] CBC W/PLT COUNT & AUTO DIFFERENTIAL 2023-09-06 04:49:00 Joshua [facility] BASIC METABOLIC PANEL 2023-09-06 04:49:00 Joshua [facility] MAGNESIUM 2023-09-06 04:49:00 Joshua [facility] PHOSPHORUS 2023-09-06 04:49:00 [facility] CBC W/PLT COUNT & AUTO DIFFERENTIAL 2023-09-06 04:49:00 Joshua [facility] POCT-GLUCOSE METER 2023-09-05 21:24:00 [facility] BRAIN WITH & WITHOUT IV CONTRAST 2023-09-05 11:25:07 Sandi Aleman [facility] POCT-GLUCOSE METER 2023-09-05 08:10:00 Bud [facility] CBC W/PLT COUNT & AUTO DIFFERENTIAL 2023-09-05 04:44:00 Joshua [facility] BASIC METABOLIC PANEL 2023-09-05 04:44:00 [facility] MAG[facility]UM 2023-09-05 04:44:00 Joshua [facility] PHOSPHORUS 2023-09-05 04:44:00 Joshua [facility] POCT-GLUCOSE METER 2023-09-05 04:44:00 [facility] W/PLT COUNT & AUTO DIFFERENTIAL 2023-09-05 04:44:00 Joshua [facility] POCT-GLUCOSE METER 2023-09-04 21:38:00 Lisandra [facility] POCT-GLUCOSE METER 2023-09-04 15:42:00 [facility] SARS-COV2/INFLUENZA/RSV RT-PCR 2023-09-04 11:25:00 Jovani Mcnally [facility] POCT-GLUCOSE METER 2023-09-04 10:53:[facility] 2023-09-04 08:04:00 [facility]AL[facility]IN 2023-09-04 06:56:00 Uli [facility] IRON, TIBC, % SAT. (WITHOUT FERRITIN) 2023-09-04 06:56:00 Uli [facility] FERRITIN 2023-09-04 06:56:00 Uli [facility] BLOOD CULTURE 2023-09-04 06:37:00 Randall, [facility] MR LUMBAR SPINE WITHOUT IV CONTRAST 2023-09-04 05:47:25 Postsantana [facility] MR THORACIC SPINE WITHOUT IV CONTRAST 2023-09-04 04:53:00 Melvi [facility] MR CERVICAL SPINE WITHOUT IV CONTRAST 2023-09-04 04:18:00 Mel[address] [facility] CT THORACIC SPINE WITHOUT IV CONTRAST 2023-09-04 03:08:00 Randall [facility] CT LUMBAR SPINE WITHOUT IV CONTRAST 2023-09-04 03:08:00 Randall [facility] LACTIC ACID, VENOUS 2023-09-04 01:42[facility] 2023-09-04 01:42:00 Monroe [facility] CBC W/PLT COUNT & AUTO DIFFERENTIAL 2023-09-04 00:51:00 Melvi [facility] COMPREHENSIVE METABOLIC PANEL 2023-09-04 00:51:00 Melvi [facility] MAGNESIUM 2023-09-04 00:51:00 Melvi [facility] PHOSPHORUS 2023-09-04 00:51:00 Melvi [facility] PROTHROMBIN TIME/INR 2023-09-04 00:51:00 Melvi [facility] APTT 2023-09-04 00:51:00 Melvi [facility] B-TYPE NATRIURETIC FACTOR (BNP) 2023-09-04 00:51:00 Melvi [facility] URINALYSIS WITHOUT MICROSCOPIC 2023-09-04 00:51:00 Melvi [facility] RAPID DRUG SCREEN, URINE 2023-09-04 00:51:00 Melvi [facility] D-DIMER 2023-09-04 00:51:00 London Loyola [facility] FIBRINOGEN 2023-09-04 00:51:00 RandallJorge stewart [facility] CBC W/PLT COUNT & AUTO DIFFERENTIAL 2023-09-04 00:51:00 Melvi [facility] EKG-SCANNED 2023-09-04 00:00:00 Provider, Default Scanning [facility] LACTIC ACID WHOLE BLOOD 2023-08-12 20:31:00 Mj Bryan [facility] COMP. METABOLIC PANEL ([id number]) 2023-08-12 20:29:00 [facility] WITH [facility]FF 2023-08-12 20:29:[address] [facility] [place] [place] CONSENT/REFUSAL FOR DIAGNOSI S AND TREATMENT 2023-08-12 19:43:16 Doctor Unassigned, [place] [facility] TRANSESOPHAGEAL ECHO 2023-06-16 11:05:00 Aydee Go [facility] T SPOT TB 2023-06-15 04:51:00 Lauren Blair [facility] FUNGITELL R B-D-GLUCAN WITH REFLEX TO TITER 2023-06-15 04:51:00 Lauren Blair [facility] ASPERGILLUS GALACTOMANNAN ANTIGEN 2023-06-15 04:51:00 Rossy [facility] VANCOMYCIN LEVEL, TROUGH 2023-06-15 04:51:00 Kaylene Mendosa [facility] T-SPOT(R).TB (QUEST) 2023-06-15 04:27:00 Provider, Not In System [facility] T-SPOT(R).TB (QUEST) 2023-06-15 04:27:00 System, Provider Not In [facility] ECHO W CONTRAST & DOPPLER 2023-06-14 09:22:00 [facility] HEMOGLOBIN A1C 2023-06-14 04:08:00 Marianela uBrgess [facility] CBC (HEMOGRAM ONLY) 2023-06-14 04:08:00 [facility] BASIC METABOLIC PANEL 2023-06-14 04:08:00 [facility] CRYPTOCOCCAL ANTIGEN 2023-06-13 17:21:00 Rossy tucker Gonzalez [facility] HC LAB HIV-1 AG W/HIV-1&2 AB 2023-06-13 17:21:00 Lauren Blair [facility] VENOUS DOPPLER ARM, LEFT 2023-06-13 17:20:00 Marianela Burgess [facility] LEGIONELLA ANTIGEN, URINE 2023-06-13 17:00:00 [facility] SPUTUM CULTURE + GRAM STAIN 2023-06-13 14:33:00 [facility] MR LUMBAR SPINE WITH & WITHOUT IV CONTRAST 2023-06-13 13:03:47 Burt Nelson [facility] ECG 12-LEAD 2023-06-13 11:47:02 [facility] ECG 12-LEAD 2023-06-13 11:47:02 Unknown, Hl7 Doctor [facility] MRSA SCREEN 2023-06-13 09:19:00 [facility] CBC W/PLT COUNT & AUTO DIFFERENTIAL 2023-06-13 06:03:00 Marianela Burgess [facility] COMPREHENSIVE METABOLIC PANEL 2023-06-13 06:03:00 Marianela Burgess [facility] PROTHROMBIN TIME/INR 2023-06-13 06:03:00 Marianela Burgess [facility] CREATINE KINASE (CK) 2023-06-13 06:03:00 Aydee Go [facility] CBC W/PLT COUNT & AUTO DIFFERENTIAL 2023-06-13 06:03:00 Marianela Burgess [facility] BLOOD CULTURE 2023-06-13 06:02:00 Marianela Burgess [facility] CBC W/PLT COUNT & AUTO DIFFERENTIAL 2023-06-02 04:41:00 [facility] [place] BASIC METABOLIC PANEL 2023-06-02 04:41:00 [facility] MAGNESIUM 2023-06-02 04:41:00 [facility] PHOSPHORUS 2023-06-02 04:41:00 [facility] CBC W/PLT COUNT & AUTO DIFFERENTIAL 2023-06-02 04:41:00 Kimberley [facility] [place] XR SPINE LUMBAR 1 VIEW 2023-06-01 10:31:00 [facility] XR SPINE LUMBAR 1 VIEW 2023-06-01 09:46:00 [facility] LAMINECTOMY, SPINE, LUMBAR 2023-06-01 09:10:00 [facility] PROCEDURE W/ C-ARM 2023-06-01 09:10:00 [facility] LAMINECTOMY, SPINE, LUMBAR 2023-06-01 07:30:00 [facility] PROCEDURE W/ C-ARM 2023-06-01 07:30:[address] [facility] SCREEN, URINE 2023-06-01 04:33:00 [facility] BASIC METABOLIC PANEL 2023-05-31 22:55:00 Dallas Gomez [facility] CBC W/PLT COUNT & AUTO DIFFERENTIAL 2023-05-31 22:55:00 Dallas Gomez [facility] PT/APTT 2023-05-31 22:55:00 Dallas Gomez [facility] CBC W/PLT COUNT & AUTO DIFFERENTIAL 2023-05-31 22:55:00 Dallas Gomez [facility] CT NECK SOFT TISSUE WITHOUT IV CONTRAST 2023-05-31 09:39:30 [facility] TYPE AND SCREEN, AUTOMATED 2023-05-31 09:13:00 [facility] BASIC METABOLIC PANEL 2023-05-29 06:43:00 [facility] CBC W/PLT COUNT & AUTO DIFFERENTIAL 2023-05-29 06:43:00 [facility] CBC W/PLT COUNT & AUTO DIFFERENTIAL 2023-05-29 06:43:00 [facility] XR SPINE CERVICAL 2 OR 3 VIEWS 2023-05-28 18:57:00 [facility] [place] FLUORO NON-SPECIFIC UP TO 1 HOUR 2023-05-28 10:48:[address] [facility] [place] FLUORO NON-SPECIFIC UP TO 1 HOUR 2023-05-28 10:07:[address] [facility] DISCECTOMY, SPINE, CERVICAL, ANTERIOR APPROACH, WITH FUSION 2023-05-28 08:15:00 [facility] INSERTION, HARDWARE, SPINAL 2023-05-28 08:15:[address] [facility] PROCEDURE, ALLOGRAFT, FOR SPINE SURGERY 2023-05-28 08:15:[address] [facility] AUTOGRAFT FOR SPINE SURGERY 2023-05-28 08:15:00 Adam Garcia [facility] PROCEDURE W/ C-ARM 2023-05-28 08:15:00 [facility] NEUROPHYSIOLOGIC MONITORING, INTRAOPERATIVE 2023-05-28 08:15:[address] [facility] PROCEDURE, USING OPERATING MICROSCOPE 2023-05-28 08:15:00 [facility] HCG, QUANTITATIVE, 2023-05-28 07:42:00 Yue Bui [facility] TYPE AND SCREEN, AUTOMATED 2023-05-28 07:42:00 JaunbestmarshaQuin [facility] XR CHEST 1 VIEW PORTABLE / BEDSIDE 2023-04-01 15:32:16 Thomas Lozoya [facility] B-TYPE NATRIURETIC FACTOR (BNP) 2023-04-01 13:32:00 Thomas Lozoya [facility] ECHO W CONTRAST & DOPPLER 2023-03-31 20:18:37 Jasen [facility] MR CERVICAL SPINE WITHOUT IV CONTRAST 2023-03-31 09:25:00 Edward Lewis [facility] CBC (HEMOGRAM ONLY) 2023-03-31 03:45:00 Jasen [facility] COMPREHENSIVE METABOLIC PANEL 2023-03-31 03:45:00 Jasen [facility] ARTERIAL DOPPLER LEGS BILATERAL 2023-03-30 15:45:00 Jasen [facility] ARTERIAL (ALEISHA'S W/ DOPPLER) ONLY 2023-03-30 15:44:00 Jasen [facility] ECG 12-LEAD 2023-03-30 13:06:22 Jasen [facility] ECG 12-LEAD 2023-03-30 13:06:22 Unknown, Hl7 [facility] MR THORACIC SPINE WITHOUT IV CONTRAST 2023-03-30 12:29:58 Eric [facility] MR LUMBAR SPINE WITHOUT IV CONTRAST 2023-03-30 11:58:00 Eric [facility] EEG AWAKE AND DROWSY 2023-03-30 09:57:53 Berry [facility] VALPROIC ACID LEVEL, TOTAL 2023-03-30 09:06:00 Winston Smartaltristan [facility] URINALYSIS W/ REFLEX URINE CULTURE 2023-03-30 03:54:00 Eric [facility] CBC (HEMOGRAM ONLY) 2023-03-30 03:52:00 Jasen [facility] COMPREHENSIVE METABOLIC PANEL 2023-03-30 03:52:00 ZiMariah fitzgerald [facility] HEMOGLOBIN A1C 2023-03-30 03:52:00 PeteMariah chaudhary [facility] PT/APTT 2023-03-30 03:52:00 Thomas Lozoya [facility] EKG-SCANNED 2023-03-29 00:00:00 Provider, Default Scanning [facility] CT HEAD WO CONTRAST 2022-12-11 18:36:49 [...] [place] MAGNESIUM 2022-12-11 14:57:00 Alfonso Alvarado [facility] COMP. METABOLIC PANEL ([id number]) 2022-12-11 14:57:00 Alfonso Alvarado [facility] D-DIMER 2022-12-11 14:15:00 Alfonso Alvarado [facility] XR CHEST 1 VW 2022-12-11 14:10:26 Alfonso Alvarado [place] [facility] TROPONIN I 2022-12-11 14:02:00 Alfonso Alvarado [facility] CBC WITH DIFF 2022-12-11 14:02:00 Alfonso Alvarado [place] [facility] N-TERMINAL PRO-BNP 2022-12-11 14:02:00 Alfonso Alvarado [facility] HB ECG ROUTINE & RHYTHM STRIP 2022-12-11 14:01:08 Alfonso Alvarado [facility] CONSENT/REFUSAL FOR DIAGNOSI S AND TREATMENT 2022-12-11 13:52:01 Doctor Unassigned, [place] [facility] ECG 12-LEAD 2022-08-03 05:03:32 Unknown, Hl7 Doctor [facility] ECG 12-LEAD 2022-08-03 05:03:32 Unknown, Hl7 [facility] LIPID PANEL 2022-08-02 21:14:00 [facility] TSH/FREE T4 IF INDICATED 2022-08-02 21:14:00 [facility] VITAMIN B12 2022-08-02 21:14:00 [facility] HEMOGLOBIN A1C 2022-08-02 21:14:00 [facility] COMPREHENSIVE METABOLIC PANEL 2022-08-02 21:14:00 [facility] CBC W/PLT COUNT & AUTO DIFFERENTIAL 2022-08-02 21:14:00 [facility] RPR 2022-08-02 21:14:00 [facility] HC LAB HIV-1 AG W/HIV-1&2 AB 2022-08-02 21:14:00 [facility] C-REACTIVE PROTEIN 2022-08-02 21:14:00 [facility] CBC W/PLT COUNT & AUTO DIFFERENTIAL 2022-08-02 21:14:00 [facility] EKG-SCANNED 2022-08-02 00:00:00 Provider, Default Scanning [facility] CT HEAD WO CONTRAST 2022-08-01 23:52:15 Dami Lorwy [facility] GALV ONLY - INFLUENZA A B RS V PCR 2022-08-01 18:28:00 Letitia Chambers [facility] TRANSTHORACIC ECHO (TTE) COMPLETE W/ CONTRAST 2022-08-01 14:42:00 Kylee Montez [facility] MAGNESIUM 2022-08-01 10:42:00 Dami Lowry [facility] BASIC METABOLIC PANEL (NA, K , CL, CO2, GLUCOSE, BUN, CREATININE, CA) 2022-08-01 10:42:00 Dami Lowry [facility] CBC WITH DIFF 2022-08-01 10:42:00 Dami Lowry [facility] N-TERMINAL PRO-BNP 2022-08-01 10:42:00 Kylee Montez [facility] POCT GLUCOSE (AUTOMATED) 2022-08-01 06:56:00 Dami Lowry [facility] CRITICAL CARE 2022-07-31 22:31:36 Megan Rondon [facility] URINALYSIS 2022-07-31 20:52:00 Megan Rondon [facility] URINE DRUG (IMMUNOASSAY) - COMPREHENSIVE DRUG SCREEN W/O REFLEX 2022-07-31 20:52:00 Megan Rondon [facility] XR CHEST 1 VW 2022-07-31 18:45:17 Megan Rondon [facility] LIPASE 2022-07-31 17:58:00 [facility] 2022-07-31 17:58:00 [facility] COMP. METABOLIC PANEL ([id number]) 2022-07-31 17:58:00 [facility] CBC WITH DIFF 2022-07-31 17:58:00 [facility] PROTHROMBIN TIME / INR 2022-07-31 17:58:00 [facility] ACTIVATED PARTIAL THRMPLAS DAVID 2022-07-31 17:58:00 Alcon [facility] N-TERMINAL PRO-BNP 2022-07-31 17:58:00 [facility] HB ECG ROUTINE & RHYTHM STRIP 2022-07-31 17:46:28 [facility] NOTICE OF PRIVACY PRACTICES 2022-07-31 17:35:38 Doctor Unassigned, [place] [facility] CONSENT/REFUSAL FOR DIAGNOSI S AND TREATMENT 2022-07-31 17:35:13 Doctor Unassigned, [place] [facility] PHOSPHORUS 2022-05-08 05:51:00 Shefali [facility] MAGNESIUM 2022-05-08 05:51:00 Shefali [facility] BASIC METABOLIC PANEL (NA, K , CL, CO2, GLUCOSE, BUN, CREATININE, CA) 2022-05-08 05:51:00 Shefali [facility] CBC WITH DIFF 2022-05-08 05:51:00 Shefali [facility] BASIC METABOLIC PANEL [...] GLUCOSE, BUN, CREATININE, CA) 2022-05-06 05:04:00 Shefali [facility] CBC WITH DIFF 2022-05-06 05:04:00 Shefali [facility] KEPPRA (LEVETIRACETAM) 2022-05-06 05:04:00 Shefali [facility] MR LUMBAR SPINE WO CONTRAST 2022-05-06 02:54:37 Ender Monet [facility] ELECTROENCEPHALOGRAM 2022-05-06 00:00:00 John Cintron [facility] BASIC METABOLIC PANEL (NA, K , CL, CO2, GLUCOSE, BUN, CREATININE, CA) 2022-05-05 07:57[facility]00 [facility] 2022-05-05 07:57:00 Ismael Dunn [facility] PROTHROMBIN TIME / INR 2022-05-05 07:57:00 Ismael Dunn [facility] ACTIVATED PARTIAL THRMPLAS DAVID 2022-05-05 07:57:00 Ismael Dunn [facility] FIBRINOGEN 2022-05-05 07:57:00 Ismael Dunn [facility] EMERGENCY SERVICES AGREEMENT S AND AUTHORIZATIONS 2022-05-04 05:01:00 Doctor Unassigned, [place] [facility] VITAMIN D, 25-OH 2022-04-15 16:53:00 Sen Toledo [facility] MR THORACIC SPINE WO CONTRAST 2022-04-15 11:56:19 [place], [facility] MR CERVICAL SPINE WO CONTRAST 2022-04-15 11:20:00 Harshil [facility] BASIC METABOLIC PANEL (NA, K , CL, CO2, GLUCOSE, BUN, CREATININE, CA) 2022-04-15 10:36:00 Charmaine Morataya [facility] TEST, URINE 2022-04-15 04:39:00 [facility]arshil [facility] URINE DRUG (IMMUNOASSAY) - COMPREHENSIVE DRUG SCREEN 2022-04-15 04:39:00 [facility]arsh[facility] URINALYSIS 2022-04-15 04:39:00 [facility]arsh[facility] TRANSTHORACIC ECHO (TTE) COMPLETE W/ CONTRAST 2022-04-14 16:37:03 [facility]arsh[facility] KEPPRA (LEVETIRACETAM) 2022-04-14 15:30:00 [facility]arshil [facility] MAGNESIUM 2022-04-14 10:03:00 Harshil [facility] BASIC METABOLIC PANEL (NA, K , CL, CO2, GLUCOSE, BUN, CREATININE, CA) 2022-04-14 10:03:00 [facility]arshil [facility] MR LUMBAR SPINE WO CONTRAST 2022-04-14 02:48:12 [facility]arsh[facility] MR STROKE BRAIN WO CONTRAST 2022-04-14 02:29:00 [facility]arsh[facility] CT STROKE ANGIOGRAM HEAD 2022-04-13 18:40:00 Sapna [...] [place] THYROID STIMULATING HORMONE 2022-04-13 18:17:00 [facility]arsh[facility] BASIC METABOLIC PANEL (NA, K , CL, CO2, GLUCOSE, BUN, CREATININE, CA) 2022-04-13 18:17:00 Sapna Vargas [facility] LIPID PANEL ([id number])(TOTAL CHOLESTEROL, TRIGLYCERIDES, HDL) 2022-04-13 18:17:00 Soumya Chua [facility] CBC WITHOUT DIFF 2022-04-13 18:17:00 Sapna Vargas [facility] GLYCOSYLATED HEMOGLOBIN (A1C) 2022-04-13 18:17:00 Soumya Chua [facility] PROTHROMBIN TIME / INR 2022-04-13 18:17:00 Sapna Vargas [facility] ACTIVATED PARTIAL THRMPLAS DAVID 2022-04-13 18:17:00 Sapna [...] S AND TREATMENT 2022-04-13 18:05:14 Doctor Unassigned, [place] [facility] HOSPITAL ADMISSION 2022-04-13 05:01:00 Doctor Unassigned, [place] [facility] SARS-COV-2 COVID-19 VACCINE 12 YRS+,0.3ML,IM (PFIZER - [facility]) 2022-02-19 15:21:12 Doctor Unassigned, [place] [facility] URINE DRUG (IMMUNOASSAY) - COMPREHENSIVE DRUG SCREEN W/O REFLEX 2021-11-23 21:21:00 Williams Virk [facility] CT HEAD WO CONTRAST 2021-11-23 20:58:00 Williams Virk [facility] POCT TEST 2021-11-23 20:46:00 Williams Virk [facility] URINALYSIS 2021-11-23 20:43:00 Williams Virk [facility] LIPASE 2021-11-23 20:27:00 Williams Virk [facility] TROPONIN I 2021-11-23 20:27:00 Williams Virk [facility] COMP. METABOLIC PANEL ([id number]) 2021-11-23 20:27:00 Williams Virk [facility] CBC WITH DIFF 2021-11-23 20:27:00 Williams Virk [facility] POCT GLUCOSE (AUTOMATED) 2021-11-23 20:15:00 Doctor Unassigned, [place] [facility] SARS-COV-2 COVID-19 VACCINE,0.3ML,IM (PFIZER) 2021-05-24 14:23:12 Doctor Unassigned, [place] [facility] SARS-COV-2 COVID-19 VACCINE,0.3ML,IM (PFIZER) 2021-05-03 14:59:29 Doctor Unassigned, [place] [facility] EMERGENCY SERVICES AGREEMENT S AND AUTHORIZATIONS 2021-04-16 05:01:00 Doctor Unassigned, [place] [facility] URINALYSIS 2021-03-17 03:09:00 Fabrice Chakraborty [facility] XR CHEST 1 VW 2021-03-17 01:45:07 Palmer [facility] TROPONIN I 2021-03-17 01:35:00 aPlmer [facility] COMP. METABOLIC PANEL ([id number]) 2021-03-17 01:35:00 Fabrice Chakraborty [facility] CBC WITH DIFF 2021-03-17 01:35:00 Palmer [facility] N-TERMINAL PRO-BNP 2021-03-17 01:35:00 Fabrice Chakraborty [facility] COVID-19 (ID NOW RAPID TESTING) 2021-03-17 00:58:00 Mj Bryan [facility] CONSENT/REFUSAL FOR DIAGNOSI S AND TREATMENT 2021-03-17 00:32:59 Doctor Unassigned, [place] [facility] COVID-19 (ID NOW RAPID TESTING) 2021-02-19 17:04:00 Estefania Monroy [facility] CT ABDOMEN PELVIS W CONTRAST 2021-02-19 16:41:18 Estefania Monroy [facility] LIPASE 2021-02-19 15:58:00 Estefania Monroy [facility] COMP. METABOLIC PANEL ([id number]) 2021-02-19 15:58:00 Estefania Monroy [facility] CBC WITH DIFF 2021-02-19 15:58:00 Estefania Monroy [facility] URINALYSIS 2021-02-19 15:58:00 Estefania Monroy [facility] NOTICE OF PRIVACY PRACTICES 2021-02-19 15:30:46 Doctor Unassigned, [place] [facility] CONSENT/REFUSAL FOR DIAGNOSI S AND TREATMENT 2021-02-19 15:30:30 Doctor Unassigned, [place] [facility] Plan of Care Planned Activity Planned Date Details Comments Source Future Scheduled Test 2025-08-02 00:00:00 Lipid panel (procedure) [code = 69789487] [facility] Future Scheduled Test 2025-08-02 00:00:00 Lipid panel (procedure) [code = 31149602] [facility] Future Scheduled Test 2025-08-02 00:00:00 Lipid panel (procedure) [code = 33835782] [facility] Future Scheduled Test 2025-08-02 00:00:00 Lipid panel (procedure) [code = 21367646] [facility] Future Scheduled Test 2025-08-02 00:00:00 Lipid panel (procedure) [code = 34876267] [facility] Future Scheduled Test 2025-08-02 00:00:00 Lipid panel (procedure) [code = 79166846] [facility] Future Scheduled Test 2025-08-02 00:00:00 Lipid panel (procedure) [code = 87725172] [facility] Future Scheduled Test 2025-08-02 00:00:00 Lipid panel (procedure) [code = 74254044] [facility] Future Scheduled Test 2025-08-02 00:00:00 Lipid panel (procedure) [code = 34470692] [facility] Future Scheduled Test 2025-08-02 00:00:00 Lipid panel (procedure) [code = 24355194] [facility] Future Scheduled Test 2025-08-02 00:00:00 Lipid panel (procedure) [code = 66885518] [facility] Future Scheduled Test 2025-08-02 00:00:00 Lipid panel (procedure) [code = 48891748] [facility] Future Scheduled Test 2025-08-02 00:00:00 Lipid panel (procedure) [code = 91600794] [facility] Future Scheduled Test 2025-08-02 00:00:00 Lipid panel (procedure) [code = 75315925] [facility] Future Scheduled Test 2025-08-02 00:00:00 Lipid panel (procedure) [code = 92871850] [facility] Future Scheduled Test 2025-08-02 00:00:00 Lipid panel (procedure) [code = 25199043] [facility] Future Scheduled Test 2025-08-02 00:00:00 Lipid panel (procedure) [code = 15632495] [facility] Future Scheduled Test 2025-08-02 00:00:00 Lipid panel (procedure) [code = 96460862] [facility] Future Scheduled Test 2025-08-02 00:00:00 Lipid panel (procedure) [code = 28145976] [facility] Future Scheduled Test 2025-08-02 00:00:00 Lipid panel (procedure) [code = 33814177] [facility] Future Scheduled Test 2025-08-02 00:00:00 Lipid panel (procedure) [code = 53735053] [facility] Future Scheduled Test 2025-08-02 00:00:00 Lipid panel (procedure) [code = 52726932] [facility] Future Scheduled Test 2025-08-02 00:00:00 Lipid panel (procedure) [code = 88005322] [facility] Future Scheduled Test 2025-08-02 00:00:00 Lipid panel (procedure) [code = 76006799] [facility] Future Scheduled Test 2025-08-02 00:00:00 Lipid panel (procedure) [code = 37988058] [facility] Future Scheduled Test 2025-08-02 00:00:00 Lipid panel (procedure) [code = 24182248] [facility] Future Scheduled Test 2025-08-02 00:00:00 Lipid panel (procedure) [code = 14984025] [facility] Future Scheduled Test 2025-08-02 00:00:00 Lipid panel (procedure) [code = 25495824] [facility] Future Scheduled Test 2025-08-02 00:00:00 Lipid panel (procedure) [code = 09346632] [facility] Future Scheduled Test 2025-08-02 00:00:00 Lipid panel (procedure) [code = 95520307] [facility] Future Scheduled Test 2025-08-02 00:00:00 Lipid panel (procedure) [code = 34843586] [facility] Future Scheduled Test 2025-08-02 00:00:00 Lipid panel (procedure) [code = 85674507] [facility] Future Scheduled Test 2025-08-02 00:00:00 Lipid panel (procedure) [code = 66401688] [facility] Future Scheduled Test 2025-08-02 00:00:00 Lipid panel (procedure) [code = 04326806] [facility] Future Scheduled Test 2025-08-02 00:00:00 Lipid panel (procedure) [code = 00192673] [facility] Future Scheduled Test 2025-08-02 00:00:00 Lipid panel (procedure) [code = 43845823] [facility] Future Scheduled Test 2025-08-02 00:00:00 Lipid panel (procedure) [code = 92809263] [facility] Future Scheduled Test 2025-08-02 00:00:00 Lipid panel (procedure) [code = 95823114] [facility] Future Scheduled Test 2025-08-02 00:00:00 Lipid panel (procedure) [code = 07172014] [facility] Future Scheduled Test 2025-08-02 00:00:00 Lipid panel (procedure) [code = 48571844] [facility] Future Scheduled Test 2025-08-02 00:00:00 Lipid panel (procedure) [code = 98405385] [facility] Future Scheduled Test 2025-08-02 00:00:00 Lipid panel (procedure) [code = 00489928] [facility] Future Scheduled Test 2025-08-02 00:00:00 Lipid panel (procedure) [code = 01465298] [facility] Future Scheduled Test 2025-08-02 00:00:00 Lipid panel (procedure) [code = 09996224] [facility] Future Scheduled Test 2025-08-02 00:00:00 Lipid panel (procedure) [code = 66584546] [facility] Future Scheduled Test 2025-08-02 00:00:00 Lipid panel (procedure) [code = 41353839] [facility] Future Scheduled Test 2025-08-02 00:00:00 Lipid panel (procedure) [code = 00797326] [facility] Future Scheduled Test 2025-08-02 00:00:00 Lipid panel (procedure) [code = 65710845] [facility] Future Scheduled Test 2025-08-02 00:00:00 Lipid panel (procedure) [code = 64340328] [facility] Future Scheduled Test 2025-08-02 00:00:00 Lipid panel (procedure) [code = 35102594] [facility] Future Scheduled Test 2025-08-02 00:00:00 Lipid panel (procedure) [code = 52485420] [facility] Future Scheduled Test 2025-08-02 00:00:00 Lipid panel (procedure) [code = 72498630] [facility] Future Scheduled Test 2025-08-02 00:00:00 Lipid panel (procedure) [code = 49632642] [facility] Future Scheduled Test 2025-08-02 00:00:00 Lipid panel (procedure) [code = 96922922] [facility] Future Scheduled Test 2025-08-02 00:00:00 Lipid panel (procedure) [code = 08140465] [facility] Future Scheduled Test 2025-08-02 00:00:00 Lipid panel (procedure) [code = 24546255] [facility] Future Scheduled Test 2025-08-02 00:00:00 Lipid panel (procedure) [code = 96207665] [facility] Future Scheduled Test 2025-08-02 00:00:00 Lipid panel (procedure) [code = 03722586] [facility] Future Scheduled Test 2025-08-02 00:00:00 Lipid panel (procedure) [code = 19345156] [facility] Future Scheduled Test 2025-08-02 00:00:00 Lipid panel (procedure) [code = 19770661] [facility] Future Scheduled Test 2025-08-02 00:00:00 Lipid panel (procedure) [code = 22829106] [facility] Future Scheduled Test 2025-08-02 00:00:00 Lipid panel (procedure) [code = 20746147] [facility] Future Scheduled Test 2025-08-02 00:00:00 Lipid panel (procedure) [code = 49971541] [facility] Future Scheduled Test 2025-08-02 00:00:00 Lipid panel (procedure) [code = 90651579] [facility] Future Scheduled Test 2025-08-02 00:00:00 Lipid panel (procedure) [code = 31087553] [facility] Future Scheduled Test 2025-08-02 00:00:00 Lipid panel (procedure) [code = 69691697] [facility] Future Scheduled Test 2025-08-02 00:00:00 Lipid panel (procedure) [code = 17063643] [facility] Future Scheduled Test 2025-08-02 00:00:00 Lipid panel (procedure) [code = 26654826] [facility] Future Scheduled Test 2025-08-02 00:00:00 Lipid panel (procedure) [code = 23075582] [facility] Future Scheduled Test 2025-08-02 00:00:00 Lipid panel (procedure) [code = 87728156] [facility] Future Scheduled Test 2024-05-28 00:00:00 Tobacco Cessation Counseling and Screening (12+) [code = Tobacco Cessation Counseling and Screening (12+)] [facility] Future Scheduled Test 2024-05-28 00:00:00 Tobacco Cessation Counseling and Screening (12+) [code = Tobacco Cessation Counseling and Screening (12+)] [facility] Future Scheduled Test 2024-05-28 00:00:00 Tobacco Cessation Counseling and Screening (12+) [code = Tobacco Cessation Counseling and Screening (12+)] [facility] Scheduled Test 2024-05-28 00:00:00 Tobacco Cessation Counseling and Screening (12+) [code = Tobacco Cessation Counseling and Screening (12+)] [facility] Scheduled Test 2024-05-28 00:00:00 Tobacco Cessation Counseling and Screening (12+) [code = Tobacco Cessation Counseling and Screening (12+)] [facility] Scheduled Test 2024-05-28 00:00:00 Tobacco Cessation Counseling and Screening (12+) [code = Tobacco Cessation Counseling and Screening (12+)] [facility] Scheduled Test 2024-05-28 00:00:00 Tobacco Cessation Counseling and Screening (12+) [code = Tobacco Cessation Counseling and Screening (12+)] [facility] Scheduled Test 2024-05-28 00:00:00 Tobacco Cessation Counseling and Screening (12+) [code = Tobacco Cessation Counseling and Screening (12+)] [facility] Scheduled Test 2024-05-28 00:00:00 Tobacco Cessation Counseling and Screening (12+) [code = Tobacco Cessation Counseling and Screening (12+)] [facility] Scheduled Test 2024-05-28 00:00:00 Tobacco Cessation Counseling and Screening (12+) [code = Tobacco Cessation Counseling and Screening (12+)] [facility] Scheduled Test 2024-05-28 00:00:00 Tobacco Cessation Counseling and Screening (12+) [code = Tobacco Cessation Counseling and Screening (12+)] [facility] Future Scheduled Test 2024-05-28 00:00:00 Tobacco Cessation Counseling and Screening (12+) [code = Tobacco Cessation Counseling and Screening (12+)] [facility] Scheduled Test 2024-05-28 00:00:00 Tobacco Cessation Counseling and Screening (12+) [code = Tobacco Cessation Counseling and Screening (12+)] [facility] Scheduled Test 2024-05-28 00:00:00 Tobacco Cessation Counseling and Screening (12+) [code = Tobacco Cessation Counseling and Screening (12+)] [facility] Scheduled Test 2024-05-28 00:00:00 Tobacco Cessation Counseling and Screening (12+) [code = Tobacco Cessation Counseling and Screening (12+)] [facility] Scheduled Test 2024-05-28 00:00:00 Tobacco Cessation Counseling and Screening (12+) [code = Tobacco Cessation Counseling and Screening (12+)] [facility] Scheduled Test 2024-05-28 00:00:00 Tobacco Cessation Counseling and Screening (12+) [code = Tobacco Cessation Counseling and Screening (12+)] [facility] Scheduled Test 2024-05-28 00:00:00 Tobacco Cessation Counseling and Screening (12+) [code = Tobacco Cessation Counseling and Screening (12+)] [facility] Scheduled Test 2024-05-28 00:00:00 Tobacco Cessation Counseling and Screening (12+) [code = Tobacco Cessation Counseling and Screening (12+)] [facility] Scheduled Test 2024-05-28 00:00:00 Tobacco Cessation Counseling and Screening (12+) [code = Tobacco Cessation Counseling and Screening (12+)] [facility] Scheduled Test 2024-05-28 00:00:00 Tobacco Cessation Counseling and Screening (12+) [code = Tobacco Cessation Counseling and Screening (12+)] [facility] Scheduled Test 2024-05-28 00:00:00 Tobacco Cessation Counseling and Screening (12+) [code = Tobacco Cessation Counseling and Screening (12+)] [facility] Scheduled Test 2024-05-28 00:00:00 Tobacco Cessation Counseling and Screening (12+) [code = Tobacco Cessation Counseling and Screening (12+)] [facility] Scheduled Test 2024-05-28 00:00:00 Tobacco Cessation Counseling and Screening (12+) [code = Tobacco Cessation Counseling and Screening (12+)] [facility] Scheduled Test 2024-05-28 00:00:00 Tobacco Cessation Counseling and Screening (12+) [code = Tobacco Cessation Counseling and Screening (12+)] [facility] Scheduled Test 2024-05-28 00:00:00 Tobacco Cessation Counseling and Screening (12+) [code = Tobacco Cessation Counseling and Screening (12+)] [facility] Scheduled Test 2024-05-28 00:00:00 Tobacco Cessation Counseling and Screening (12+) [code = Tobacco Cessation Counseling and Screening (12+)] [facility] Scheduled Test 2024-05-28 00:00:00 Tobacco Cessation Counseling and Screening (12+) [code = Tobacco Cessation Counseling and Screening (12+)] [facility] Scheduled Test 2024-05-28 00:00:00 Tobacco Cessation Counseling and Screening (12+) [code = Tobacco Cessation Counseling and Screening (12+)] [facility] Scheduled Test 2024-05-28 00:00:00 Tobacco Cessation Counseling and Screening (12+) [code = Tobacco Cessation Counseling and Screening (12+)] [facility] Scheduled Test 2024-05-28 00:00:00 Tobacco Cessation Counseling and Screening (12+) [code = Tobacco Cessation Counseling and Screening (12+)] [facility] Scheduled Test 2024-05-28 00:00:00 Tobacco Cessation Counseling and Screening (12+) [code = Tobacco Cessation Counseling and Screening (12+)] [facility] Scheduled Test 2024-05-28 00:00:00 Tobacco Cessation Counseling and Screening (12+) [code = Tobacco Cessation Counseling and Screening (12+)] [facility] Scheduled Test 2024-05-28 00:00:00 Tobacco Cessation Counseling and Screening (12+) [code = Tobacco Cessation Counseling and Screening (12+)] [facility] Scheduled Test 2024-05-28 00:00:00 Tobacco Cessation Counseling and Screening (12+) [code = Tobacco Cessation Counseling and Screening (12+)] [facility] Scheduled Test 2024-05-28 00:00:00 Tobacco Cessation Counseling and Screening (12+) [code = Tobacco Cessation Counseling and Screening (12+)] [facility] Scheduled Test 2024-05-28 00:00:00 Tobacco Cessation Counseling and Screening (12+) [code = Tobacco Cessation Counseling and Screening (12+)] [facility] Scheduled Test 2024-05-28 00:00:00 Tobacco Cessation Counseling and Screening (12+) [code = Tobacco Cessation Counseling and Screening (12+)] [facility] Future Scheduled Test 2024-05-28 00:00:00 Tobacco Cessation Counseling and Screening (12+) [code = Tobacco Cessation Counseling and Screening (12+)] [facility] Future Scheduled Test 2024-05-28 00:00:00 Tobacco Cessation Counseling and Screening (12+) [code = Tobacco Cessation Counseling and Screening (12+)] [facility] Future Scheduled Test 2024-05-28 00:00:00 Tobacco Cessation Counseling and Screening (12+) [code = Tobacco Cessation Counseling and Screening (12+)] [facility] Future Scheduled Test 2024-05-28 00:00:00 Tobacco Cessation Counseling and Screening (12+) [code = Tobacco Cessation Counseling and Screening (12+)] [facility] Scheduled Test 2024-05-28 00:00:00 Tobacco Cessation Counseling and Screening (12+) [code = Tobacco Cessation Counseling and Screening (12+)] [facility] Future Scheduled Test 2024-05-28 00:00:00 Tobacco Cessation Counseling and Screening (12+) [code = Tobacco Cessation Counseling and Screening (12+)] [facility] Scheduled Test 2024-05-28 00:00:00 Tobacco Cessation Counseling and Screening (12+) [code = Tobacco Cessation Counseling and Screening (12+)] [facility]uled Test 2024-05-26 00:00:00 Tobacco Cessation Counseling and Screening (12+) [code = Tobacco Cessation Counseling and Screening (12+)] [facility] Scheduled Test 2024-05-26 00:00:00 Tobacco Cessation Counseling and Screening (12+) [code = Tobacco Cessation Counseling and Screening (12+)] [facility]uled Test 2024-03-20 00:00:00 Influenza Vaccine (Season Ended) [code = Influenza Vaccine (Season Ended)] [facility] 2024-03-20 00:00:00 Influenza Vaccine (Season Ended) [code = Influenza Vaccine (Season Ended)] [facility] 2024-03-20 00:00:00 Influenza Vaccine (Season Ended) [code = Influenza Vaccine (Season Ended)] [facility] 2024-03-20 00:00:00 Influenza Vaccine (Season Ended) [code = Influenza Vaccine (Season Ended)] [facility] 2024-03-20 00:00:00 Influenza Vaccine (Season Ended) [code = Influenza Vaccine (Season Ended)] [facility] 2024-03-20 00:00:00 Influenza Vaccine (Season Ended) [code = Influenza Vaccine (Season Ended)] [facility] 2024-03-20 00:00:00 Influenza Vaccine (Season Ended) [code = Influenza Vaccine (Season Ended)] [facility] 2024-03-20 00:00:00 Influenza Vaccine (Season Ended) [code = Influenza Vaccine (Season Ended)] [facility] 2024-03-20 00:00:00 Influenza Vaccine (Season Ended) [code = Influenza Vaccine (Season Ended)] [facility] Test 2024-03-20 00:00:00 Influenza Vaccine (Season Ended) [code = Influenza Vaccine (Season Ended)] [facility]uled Test 2023-07-20 00:00:00 DEPRESSION SCREENING (12+) [code = DEPRESSION SCREENING (12+)] [facility]uled Test 2023-07-20 00:00:00 DEPRESSION SCREENING (12+) [code = DEPRESSION SCREENING (12+)] [facility] Test 2023-07-20 00:00:00 DEPRESSION SCREENING (12+) [code = DEPRESSION SCREENING (12+)] [facility]uled Test 2023-07-20 00:00:00 DEPRESSION SCREENING (12+) [code = DEPRESSION SCREENING (12+)] [facility] Test 2023-07-20 00:00:00 DEPRESSION SCREENING (12+) [code = DEPRESSION SCREENING (12+)] [facility]uled Test 2023-07-20 00:00:00 DEPRESSION SCREENING (12+) [code = DEPRESSION SCREENING (12+)] [facility] Test 2023-07-20 00:00:00 DEPRESSION SCREENING (12+) [code = DEPRESSION SCREENING (12+)] [facility] Test 2023-07-20 00:00:00 DEPRESSION SCREENING (12+) [code = DEPRESSION SCREENING (12+)] [facility]uled Test 2023-07-20 00:00:00 DEPRESSION SCREENING (12+) [code = DEPRESSION SCREENING (12+)] [facility] 2023-07-20 00:00:00 DEPRESSION SCREENING (12+) [code = DEPRESSION SCREENING (12+)] [facility] 2023-07-20 00:00:00 DEPRESSION SCREENING (12+) [code = DEPRESSION SCREENING (12+)] [facility] 2023-07-20 00:00:00 DEPRESSION SCREENING (12+) [code = DEPRESSION SCREENING (12+)] [facility] 2023-07-20 00:00:00 DEPRESSION SCREENING (12+) [code = DEPRESSION SCREENING (12+)] [facility] 2023-07-20 00:00:00 DEPRESSION SCREENING (12+) [code = DEPRESSION SCREENING (12+)] [facility] 2023-07-20 00:00:00 DEPRESSION SCREENING (12+) [code = DEPRESSION SCREENING (12+)] [facility] 2023-07-20 00:00:00 DEPRESSION SCREENING (12+) [code = DEPRESSION SCREENING (12+)] [facility] 2023-07-20 00:00:00 DEPRESSION SCREENING (12+) [code = DEPRESSION SCREENING (12+)] [facility] 2023-07-20 00:00:00 DEPRESSION SCREENING (12+) [code = DEPRESSION SCREENING (12+)] [facility] 2023-07-20 00:00:00 DEPRESSION SCREENING (12+) [code = DEPRESSION SCREENING (12+)] [facility] 2023-07-20 00:00:00 DEPRESSION SCREENING (12+) [code = DEPRESSION SCREENING (12+)] [facility] Test 2023-07-20 00:00:00 DEPRESSION SCREENING (12+) [code = DEPRESSION SCREENING (12+)] [facility] 2023-07-20 00:00:00 DEPRESSION SCREENING (12+) [code = DEPRESSION SCREENING (12+)] [facility] 2023-07-20 00:00:00 DEPRESSION SCREENING (12+) [code = DEPRESSION SCREENING (12+)] [facility] 2023-07-20 00:00:00 DEPRESSION SCREENING (12+) [code = DEPRESSION SCREENING (12+)] [facility] Test 2023-07-20 00:00:00 DEPRESSION SCREENING (12+) [code = DEPRESSION SCREENING (12+)] [facility] 2023-07-20 00:00:00 DEPRESSION SCREENING (12+) [code = DEPRESSION SCREENING (12+)] [facility] Test 2023-07-20 00:00:00 DEPRESSION SCREENING (12+) [code = DEPRESSION SCREENING (12+)] [facility] 2023-07-20 00:00:00 DEPRESSION SCREENING (12+) [code = DEPRESSION SCREENING (12+)] [facility] Test 2023-07-20 00:00:00 DEPRESSION SCREENING (12+) [code = DEPRESSION SCREENING (12+)] [facility] Test 2023-07-20 00:00:00 DEPRESSION SCREENING (12+) [code = DEPRESSION SCREENING (12+)] [facility] Test 2023-07-20 00:00:00 DEPRESSION SCREENING (12+) [code = DEPRESSION SCREENING (12+)] [facility] Test 2023-07-20 00:00:00 DEPRESSION SCREENING (12+) [code = DEPRESSION SCREENING (12+)] [facility] Test 2023-07-20 00:00:00 DEPRESSION SCREENING (12+) [code = DEPRESSION SCREENING (12+)] [facility] Test 2023-07-20 00:00:00 DEPRESSION SCREENING (12+) [code = DEPRESSION SCREENING (12+)] [facility] 2023-07-20 00:00:00 DEPRESSION SCREENING (12+) [code = DEPRESSION SCREENING (12+)] [facility] Test 2023-07-20 00:00:00 DEPRESSION SCREENING (12+) [code = DEPRESSION SCREENING (12+)] [facility] 2023-07-20 00:00:00 DEPRESSION SCREENING (12+) [code = DEPRESSION SCREENING (12+)] [facility] 2023-03-20 00:00:00 INFLUENZA VACCINE (Season Ended) [code = INFLUENZA VACCINE (Season Ended)] [facility] 2023-03-20 00:00:00 INFLUENZA VACCINE (Season Ended) [code = INFLUENZA VACCINE (Season Ended)] [facility] 2023-03-20 00:00:00 INFLUENZA VACCINE (Season Ended) [code = INFLUENZA VACCINE (Season Ended)] [facility] 2023-03-20 00:00:00 INFLUENZA VACCINE (Season Ended) [code = INFLUENZA VACCINE (Season Ended)] [facility] Test 2023-03-20 00:00:00 INFLUENZA VACCINE (Season Ended) [code = INFLUENZA VACCINE (Season Ended)] [facility] Test 2023-03-20 00:00:00 INFLUENZA VACCINE (Season Ended) [code = INFLUENZA VACCINE (Season Ended)] [facility] 2023-03-20 00:00:00 Influenza Vaccine (Season Ended) [code = Influenza Vaccine (Season Ended)] [facility] 2023-03-20 00:00:00 Influenza Vaccine (Season Ended) [code = Influenza Vaccine (Season Ended)] [facility] 2023-03-20 00:00:00 Influenza Vaccine (#1) [code = Influenza Vaccine (#1)] [facility] 2023-03-20 00:00:00 Influenza Vaccine (#1) [code = Influenza Vaccine (#1)] [facility] 2023-03-20 00:00:00 Influenza Vaccine (#1) [code = Influenza Vaccine (#1)] [facility] 2023-03-20 00:00:00 Influenza Vaccine (#1) [code = Influenza Vaccine (#1)] [facility] 2023-03-20 00:00:00 COVID-19 VACCINE ( season) [code = COVID-19 VACCINE ( season)] [facility] 2023-03-20 00:00:00 Influenza Vaccine (#1) [code = Influenza Vaccine (#1)] [facility] 2023-03-20 00:00:00 COVID-19 VACCINE ( season) [code = COVID-19 VACCINE ( season)] [facility] 2023-03-20 00:00:00 Influenza Vaccine (#1) [code = Influenza Vaccine (#1)] [facility] 2023-03-20 00:00:00 COVID-19 VACCINE ( season) [code = COVID-19 VACCINE ()] [facility] 2023-03-20 00:00:00 Influenza Vaccine (#1) [code = Influenza Vaccine (#1)] [facility] 2023-03-20 00:00:00 COVID-19 VACCINE ( season) [code = COVID-19 VACCINE ( season)] [facility] 2023-03-20 00:00:00 Influenza Vaccine (#1) [code = Influenza Vaccine (#1)] [facility] 2023-03-20 00:00:00 Influenza Vaccine (#1) [code = Influenza Vaccine (#1)] [facility] Test 2023-03-20 00:00:00 COVID-19 VACCINE ( season) [code = COVID-19 VACCINE ( season)] [facility] 2023-03-20 00:00:00 Influenza Vaccine (#1) [code = Influenza Vaccine (#1)] [facility] 2023-03-20 00:00:00 COVID-19 VACCINE ( season) [code = COVID-19 VACCINE ( season)] [facility] Test 2023-03-20 00:00:00 Influenza Vaccine (#1) [code = Influenza Vaccine (#1)] [facility] Test 2023-03-20 00:00:00 COVID-19 VACCINE ( season) [code = COVID-19 VACCINE ()] [facility] Test 2023-03-20 00:00:00 Influenza Vaccine (#1) [code = Influenza Vaccine (#1)] [facility] 2023-03-20 00:00:00 COVID-19 VACCINE () [code = COVID-19 VACCINE ()] [facility] Test 2023-03-20 00:00:00 Influenza Vaccine (#1) [code = Influenza Vaccine (#1)] [facility] Test 2023-03-20 00:00:00 COVID-19 VACCINE ( season) [code = COVID-19 VACCINE ()] [facility] Test 2023-03-20 00:00:00 Influenza Vaccine (#1) [code = Influenza Vaccine (#1)] [facility] Test 2023-03-20 00:00:00 COVID-19 VACCINE ( season) [code = COVID-19 VACCINE ()] [facility] Test 2023-03-20 00:00:00 Influenza Vaccine (#1) [code = Influenza Vaccine (#1)] [facility] 2023-03-20 00:00:00 COVID-19 VACCINE ( season) [code = COVID-19 VACCINE ()] [facility] Test 2023-03-20 00:00:00 Influenza Vaccine (#1) [code = Influenza Vaccine (#1)] [facility] Test 2023-03-20 00:00:00 Influenza Vaccine (#1) [code = Influenza Vaccine (#1)] [facility] Test 2023-03-20 00:00:00 COVID-19 VACCINE ( season) [code = COVID-19 VACCINE ( season)] [facility] Test 2023-03-20 00:00:00 Influenza Vaccine (#1) [code = Influenza Vaccine (#1)] [facility] Test 2023-03-20 00:00:00 COVID-19 VACCINE () [code = COVID-19 VACCINE ()] [facility] Test 2023-03-20 00:00:00 Influenza Vaccine (#1) [code = Influenza Vaccine (#1)] [facility] 2023-03-20 00:00:00 COVID-19 VACCINE () [code = COVID-19 VACCINE ()] [facility] Test 2023-03-20 00:00:00 Influenza Vaccine (#1) [code = Influenza Vaccine (#1)] [facility] 2023-03-20 00:00:00 COVID-19 VACCINE ( season) [code = COVID-19 VACCINE ()] [facility] Test 2023-03-20 00:00:00 Influenza Vaccine (#1) [code = Influenza Vaccine (#1)] [facility] 2023-03-20 00:00:00 COVID-19 VACCINE ( season) [code = COVID-19 VACCINE ( season)] [facility] Test 2023-03-20 00:00:00 Influenza Vaccine (#1) [code = Influenza Vaccine (#1)] [facility] 2023-03-20 00:00:00 COVID-19 VACCINE ( season) [code = COVID-19 VACCINE ( season)] [facility] Test 2023-03-20 00:00:00 Influenza Vaccine (#1) [code = Influenza Vaccine (#1)] [facility] 2023-03-20 00:00:00 Influenza Vaccine (#1) [code = Influenza Vaccine (#1)] [facility] 2023-03-20 00:00:00 COVID-19 VACCINE ( season) [code = COVID-19 VACCINE ()] [facility] 2023-03-20 00:00:00 Influenza Vaccine (#1) [code = Influenza Vaccine (#1)] [facility] 2023-03-20 00:00:00 COVID-19 VACCINE () [code = COVID-19 VACCINE ()] [facility] Test 2023-03-20 00:00:00 Influenza Vaccine (#1) [code = Influenza Vaccine (#1)] [facility] Test 2023-03-20 00:00:00 COVID-19 VACCINE ( season) [code = COVID-19 VACCINE ()] [facility] Test 2023-03-20 00:00:00 Influenza Vaccine (#1) [code = Influenza Vaccine (#1)] [facility] Test 2023-03-20 00:00:00 COVID-19 VACCINE ( season) [code = COVID-19 VACCINE ( season)] [facility] 2023-03-20 00:00:00 Influenza Vaccine (#1) [code = Influenza Vaccine (#1)] [facility] 2023-03-20 00:00:00 Influenza Vaccine (#1) [code = Influenza Vaccine (#1)] [facility] 2023-03-20 00:00:00 COVID-19 VACCINE ( season) [code = COVID-19 VACCINE ( season)] [facility] 2023-03-20 00:00:00 Influenza Vaccine (#1) [code = Influenza Vaccine (#1)] [facility] 2023-03-20 00:00:00 COVID-19 VACCINE ( season) [code = COVID-19 VACCINE ( season)] [facility] 2023-03-20 00:00:00 Influenza Vaccine (#1) [code = Influenza Vaccine (#1)] [facility] 2023-03-20 00:00:00 COVID-19 VACCINE ( season) [code = COVID-19 VACCINE ()] [facility] 2023-03-20 00:00:00 Influenza Vaccine (#1) [code = Influenza Vaccine (#1)] [facility] 2023-03-20 00:00:00 COVID-19 VACCINE ( season) [code = COVID-19 VACCINE ()] [facility] 2023-03-20 00:00:00 Influenza Vaccine (#1) [code = Influenza Vaccine (#1)] [facility] 2023-03-20 00:00:00 COVID-19 VACCINE ( season) [code = COVID-19 VACCINE ( season)] [facility] 2023-03-20 00:00:00 Influenza Vaccine (#1) [code = Influenza Vaccine (#1)] [facility] 2023-03-20 00:00:00 COVID-19 VACCINE ( season) [code = COVID-19 VACCINE ( season)] [facility] 2023-03-20 00:00:00 Influenza Vaccine (#1) [code = Influenza Vaccine (#1)] [facility] 2023-03-20 00:00:00 Influenza Vaccine (#1) [code = Influenza Vaccine (#1)] [facility] 2023-03-20 00:00:00 COVID-19 VACCINE ( season) [code = COVID-19 VACCINE ( season)] [facility] 2023-03-20 00:00:00 Influenza Vaccine (#1) [code = Influenza Vaccine (#1)] [facility] 2023-03-20 00:00:00 COVID-19 VACCINE ( season) [code = COVID-19 VACCINE ()] [facility] 2023-03-20 00:00:00 Influenza Vaccine (#1) [code = Influenza Vaccine (#1)] [facility] 2023-03-20 00:00:00 COVID-19 VACCINE ( season) [code = COVID-19 VACCINE ()] [facility] 2023-03-20 00:00:00 COVID-19 VACCINE () [code = COVID-19 VACCINE ()] [facility] 2023-03-20 00:00:00 COVID-19 VACCINE ( season) [code = COVID-19 VACCINE ()] [facility] 2023-03-20 00:00:00 COVID-19 VACCINE ( season) [code = COVID-19 VACCINE ()] [facility] 2023-03-20 00:00:00 COVID-19 VACCINE ( season) [code = COVID-19 VACCINE ()] [facility] 2023-03-20 00:00:00 COVID-19 VACCINE ( season) [code = COVID-19 VACCINE ()] [facility] 2023-03-20 00:00:00 Influenza Vaccine (#1) [code = Influenza Vaccine (#1)] [facility] 2023-03-20 00:00:00 COVID-19 VACCINE ( season) [code = COVID-19 VACCINE ()] [facility] 2023-03-20 00:00:00 COVID-19 VACCINE () [code = COVID-19 VACCINE ()] [facility] 2023-03-20 00:00:00 COVID-19 VACCINE () [code = COVID-19 VACCINE ()] [facility] 2023-03-20 00:00:00 COVID-19 VACCINE ( season) [code = COVID-19 VACCINE ()] [facility] 2023-03-20 00:00:00 Influenza Vaccine (#1) [code = Influenza Vaccine (#1)] [facility] 2023-03-20 00:00:00 Influenza Vaccine (#1) [code = Influenza Vaccine (#1)] [facility] 2023-03-20 00:00:00 Influenza Vaccine (#1) [code = Influenza Vaccine (#1)] [facility] 2023-03-20 00:00:00 Influenza Vaccine (#1) [code = Influenza Vaccine (#1)] [facility] 2023-03-20 00:00:00 Influenza Vaccine (#1) [code = Influenza Vaccine (#1)] [facility] 2023-03-20 00:00:00 Influenza Vaccine (#1) [code = Influenza Vaccine (#1)] [facility] 2023-03-20 00:00:00 Influenza Vaccine (#1) [code = Influenza Vaccine (#1)] [facility] 2023-03-20 00:00:00 Influenza Vaccine (#1) [code = Influenza Vaccine (#1)] [facility] 2023-03-20 00:00:00 Influenza Vaccine (#1) [code = Influenza Vaccine (#1)] [facility] 2023-03-20 00:00:00 COVID-19 VACCINE ( season) [code = COVID-19 VACCINE ( season)] [facility] 2022-07-20 00:00:00 DEPRESSION SCREENING (12+) [code = DEPRESSION SCREENING (12+)] [facility] 2022-07-20 00:00:00 DEPRESSION SCREENING (12+) [code = DEPRESSION SCREENING (12+)] [facility] 2022-07-20 00:00:00 DEPRESSION SCREENING (12+) [code = DEPRESSION SCREENING (12+)] [facility] 2022-07-20 00:00:00 DEPRESSION SCREENING (12+) [code = DEPRESSION SCREENING (12+)] [facility] 2022-07-20 00:00:00 DEPRESSION SCREENING (12+) [code = DEPRESSION SCREENING (12+)] [facility] 2022-07-20 00:00:00 DEPRESSION SCREENING (12+) [code = DEPRESSION SCREENING (12+)] [facility] 2022-07-20 00:00:00 DEPRESSION SCREENING (12+) [code = DEPRESSION SCREENING (12+)] [facility] 2022-07-20 00:00:00 DEPRESSION SCREENING (12+) [code = DEPRESSION SCREENING (12+)] [facility] 2022-07-20 00:00:00 DEPRESSION SCREENING (12+) [code = DEPRESSION SCREENING (12+)] [facility] 2022-07-20 00:00:00 DEPRESSION SCREENING (12+) [code = DEPRESSION SCREENING (12+)] [facility] 2022-07-20 00:00:00 DEPRESSION SCREENING (12+) [code = DEPRESSION SCREENING (12+)] [facility] 2022-07-20 00:00:00 DEPRESSION SCREENING (12+) [code = DEPRESSION SCREENING (12+)] [facility] 2022-07-20 00:00:00 DEPRESSION SCREENING (12+) [code = DEPRESSION SCREENING (12+)] [facility] 2022-07-20 00:00:00 DEPRESSION SCREENING (12+) [code = DEPRESSION SCREENING (12+)] [facility] 2022-07-20 00:00:00 DEPRESSION SCREENING (12+) [code = DEPRESSION SCREENING (12+)] [facility] 2022-07-20 00:00:00 DEPRESSION SCREENING (12+) [code = DEPRESSION SCREENING (12+)] [facility] 2022-07-20 00:00:00 DEPRESSION SCREENING (12+) [code = DEPRESSION SCREENING (12+)] [facility] 2022-07-20 00:00:00 DEPRESSION SCREENING (12+) [code = DEPRESSION SCREENING (12+)] [facility] 2022-07-20 00:00:00 DEPRESSION SCREENING (12+) [code = DEPRESSION SCREENING (12+)] [facility] 2022-07-20 00:00:00 DEPRESSION SCREENING (12+) [code = DEPRESSION SCREENING (12+)] [facility] 2022-07-20 00:00:00 DEPRESSION SCREENING (12+) [code = DEPRESSION SCREENING (12+)] [facility] 2022-07-20 00:00:00 DEPRESSION SCREENING (12+) [code = DEPRESSION SCREENING (12+)] [facility] 2022-07-20 00:00:00 DEPRESSION SCREENING (12+) [code = DEPRESSION SCREENING (12+)] [facility] 2022-07-20 00:00:00 DEPRESSION SCREENING (12+) [code = DEPRESSION SCREENING (12+)] [facility] 2022-07-20 00:00:00 DEPRESSION SCREENING (12+) [code = DEPRESSION SCREENING (12+)] [facility] 2022-07-20 00:00:00 DEPRESSION SCREENING (12+) [code = DEPRESSION SCREENING (12+)] [facility] 2022-07-20 00:00:00 DEPRESSION SCREENING (12+) [code = DEPRESSION SCREENING (12+)] [facility] 2022-07-20 00:00:00 DEPRESSION SCREENING (12+) [code = DEPRESSION SCREENING (12+)] [facility] 2022-07-20 00:00:00 DEPRESSION SCREENING (12+) [code = DEPRESSION SCREENING (12+)] [facility] 2022-07-20 00:00:00 DEPRESSION SCREENING (12+) [code = DEPRESSION SCREENING (12+)] [facility] Test 2022-07-20 00:00:00 DEPRESSION SCREENING (12+) [code = DEPRESSION SCREENING (12+)] [facility] 2022-07-20 00:00:00 DEPRESSION SCREENING (12+) [code = DEPRESSION SCREENING (12+)] [facility] 2022-07-20 00:00:00 DEPRESSION SCREENING (12+) [code = DEPRESSION SCREENING (12+)] [facility] 2022-06-21 00:00:00 COVID-19 VACCINE (4 - Booster for Pfizer series) [code = COVID-19 VACCINE (4 - Booster for Pfizer series)] [facility] 2022-06-21 00:00:00 COVID-19 VACCINE (4 - Booster for Pfizer series) [code = COVID-19 VACCINE (4 - Booster for Pfizer series)] [facility] Test 2022-06-21 00:00:00 COVID-19 VACCINE (4 - Booster for Pfizer series) [code = COVID-19 VACCINE (4 - Booster for Pfizer series)] [facility] Test 2022-06-21 00:00:00 COVID-19 VACCINE (4 - Booster for Pfizer series) [code = COVID-19 VACCINE (4 - Booster for Pfizer series)] [facility] Test 2022-04-16 00:00:00 COVID-19 VACCINE (4 - Booster for Pfizer series) [code = COVID-19 VACCINE (4 - Booster for Pfizer series)] [facility] Test 2022-04-16 00:00:00 COVID-19 VACCINE (4 - Booster for Pfizer series) [code = COVID-19 VACCINE (4 - Booster for Pfizer series)] [facility] Test 2022-04-16 00:00:00 COVID-19 VACCINE (4 - Booster for Pfizer series) [code = COVID-19 VACCINE (4 - Booster for Pfizer series)] [facility] Test 2022-04-16 00:00:00 COVID-19 VACCINE (4 - Booster for Pfizer series) [code = COVID-19 VACCINE (4 - Booster for Pfizer series)] [facility] Test 2022-04-16 00:00:00 COVID-19 VACCINE (4 - Booster for Pfizer series) [code = COVID-19 VACCINE (4 - Booster for Pfizer series)] [facility] Test 2022-04-16 00:00:00 COVID-19 VACCINE (4 - Booster for Pfizer series) [code = COVID-19 VACCINE (4 - Booster for Pfizer series)] [facility] Test 2022-04-16 00:00:00 COVID-19 VACCINE (4 - Booster for Pfizer series) [code = COVID-19 VACCINE (4 - Booster for Pfizer series)] [facility] Test 2022-04-16 00:00:00 COVID-19 VACCINE (4 - Booster for Pfizer series) [code = COVID-19 VACCINE (4 - Booster for Pfizer series)] [facility] Test 2022-04-16 00:00:00 COVID-19 VACCINE (4 - Booster for Pfizer series) [code = COVID-19 VACCINE (4 - Booster for Pfizer series)] [facility] 2022-04-16 00:00:00 COVID-19 VACCINE (4 - Booster for Pfizer series) [code = COVID-19 VACCINE (4 - Booster for Pfizer series)] [facility] Scheduled Test 2022-04-16 00:00:00 COVID-19 VACCINE (4 - Booster for Pfizer series) [code = COVID-19 VACCINE (4 - Booster for Pfizer series)] [facility] Test 2022-04-16 00:00:00 COVID-19 VACCINE (4 - Booster for Pfizer series) [code = COVID-19 VACCINE (4 - Booster for Pfizer series)] [facility] Test 2022-04-16 00:00:00 COVID-19 VACCINE (4 - Booster for Pfizer series) [code = COVID-19 VACCINE (4 - Booster for Pfizer series)] [facility] Test 2022-04-16 00:00:00 COVID-19 VACCINE (4 - Booster for Pfizer series) [code = COVID-19 VACCINE (4 - Booster for Pfizer series)] [facility] Test 2022-04-16 00:00:00 COVID-19 VACCINE (4 - Booster for Pfizer series) [code = COVID-19 VACCINE (4 - Booster for Pfizer series)] [facility] Test 2022-04-16 00:00:00 COVID-19 VACCINE (4 - Booster for Pfizer series) [code = COVID-19 VACCINE (4 - Booster for Pfizer series)] [facility] Test 2022-04-16 00:00:00 COVID-19 VACCINE (4 - Booster for Pfizer series) [code = COVID-19 VACCINE (4 - Booster for Pfizer series)] [facility] Test 2022-04-16 00:00:00 COVID-19 VACCINE (4 - Booster for Pfizer series) [code = COVID-19 VACCINE (4 - Booster for Pfizer series)] [facility] Test 2022-04-16 00:00:00 COVID-19 VACCINE (4 - Booster for Pfizer series) [code = COVID-19 VACCINE (4 - Booster for Pfizer series)] [facility] Test 2022-04-16 00:00:00 COVID-19 VACCINE (4 - Booster for Pfizer series) [code = COVID-19 VACCINE (4 - Booster for Pfizer series)] [facility] 2022-04-16 00:00:00 COVID-19 VACCINE (4 - Pfizer series) [code = COVID-19 VACCINE (4 - Pfizer series)] [facility] Test 2022-04-16 00:00:00 COVID-19 VACCINE (4 - Pfizer series) [code = COVID-19 VACCINE (4 - Pfizer series)] [facility] Test 2022-04-16 00:00:00 COVID-19 VACCINE (4 - Pfizer series) [code = COVID-19 VACCINE (4 - Pfizer series)] [facility] Test 2022-04-16 00:00:00 COVID-19 VACCINE (4 - Pfizer series) [code = COVID-19 VACCINE (4 - Pfizer series)] [facility] Test 2022-04-16 00:00:00 COVID-19 VACCINE (4 - Booster for Pfizer series) [code = COVID-19 VACCINE (4 - Booster for Pfizer series)] [facility] Test 2022-04-16 00:00:00 COVID-19 VACCINE (4 - Pfizer series) [code = COVID-19 VACCINE (4 - Pfizer series)] [facility] Test 2022-03-20 00:00:00 INFLUENZA VACCINE (#1) [code = INFLUENZA VACCINE (#1)] [facility] 2022-03-20 00:00:00 INFLUENZA VACCINE (#1) [code = INFLUENZA VACCINE (#1)] [facility] 2022-03-20 00:00:00 INFLUENZA VACCINE (#1) [code = INFLUENZA VACCINE (#1)] [facility] 2022-03-20 00:00:00 INFLUENZA VACCINE (#1) [code = INFLUENZA VACCINE (#1)] [facility] Test 2022-01-14 00:00:00 SHINGLES VACCINES (1 of 2) [code = SHINGLES VACCINES (1 of 2)] [facility] Test 2022-01-14 00:00:00 SHINGLES VACCINES (1 of 2) [code = SHINGLES VACCINES (1 of 2)] [facility] Test 2022-01-14 00:00:00 SHINGLES VACCINES (1 of 2) [code = SHINGLES VACCINES (1 of 2)] [facility] Test 2022-01-14 00:00:00 SHINGLES VACCINES (1 of 2) [code = SHINGLES VACCINES (1 of 2)] [facility] Test 2022-01-14 00:00:00 SHINGLES VACCINES (1 of 2) [code = SHINGLES VACCINES (1 of 2)] [facility] Test 2022-01-14 00:00:00 SHINGLES VACCINES (1 of 2) [code = SHINGLES VACCINES (1 of 2)] [facility] Test 2022-01-14 00:00:00 SHINGLES VACCINES (1 of 2) [code = SHINGLES VACCINES (1 of 2)] [facility] Test 2022-01-14 00:00:00 SHINGLES VACCINES (1 of 2) [code = SHINGLES VACCINES (1 of 2)] [facility] Test 2022-01-14 00:00:00 SHINGLES VACCINES (1 of 2) [code = SHINGLES VACCINES (1 of 2)] [facility] Test 2022-01-14 00:00:00 SHINGLES VACCINES (1 of 2) [code = SHINGLES VACCINES (1 of 2)] [facility] Test 2022-01-14 00:00:00 SHINGLES VACCINES (1 of 2) [code = SHINGLES VACCINES (1 of 2)] [facility] Test 2022-01-14 00:00:00 SHINGLES VACCINES (1 of 2) [code = SHINGLES VACCINES (1 of 2)] [facility] Test 2022-01-14 00:00:00 SHINGLES VACCINES (1 of 2) [code = SHINGLES VACCINES (1 of 2)] [facility] Test 2022-01-14 00:00:00 SHINGLES VACCINES (1 of 2) [code = SHINGLES VACCINES (1 of 2)] [facility] Test 2022-01-14 00:00:00 SHINGLES VACCINES (1 of 2) [code = SHINGLES VACCINES (1 of 2)] [facility] Test 2022-01-14 00:00:00 Screening for malignant neoplasm of lung (procedure) [code = [id number]] [facility] Test 2022-01-14 00:00:00 SHINGLES VACCINES (1 of 2) [code = SHINGLES VACCINES (1 of 2)] [facility] Test 2022-01-14 00:00:00 Screening for malignant neoplasm of lung (procedure) [code = [id number]] [facility] Test 2022-01-14 00:00:00 SHINGLES VACCINES (1 of 2) [code = SHINGLES VACCINES (1 of 2)] [facility] Test 2022-01-14 00:00:00 Screening for malignant neoplasm of lung (procedure) [code = [id number]] [facility] Test 2022-01-14 00:00:00 SHINGLES VACCINES (1 of 2) [code = SHINGLES VACCINES (1 of 2)] [facility] Test 2022-01-14 00:00:00 Screening for malignant neoplasm of lung (procedure) [code = 907654077] [facility] Test 2022-01-14 00:00:00 SHINGLES VACCINES (1 of 2) [code = SHINGLES VACCINES (1 of 2)] [facility] Test 2022-01-14 00:00:00 Screening for malignant neoplasm of lung (procedure) [code = 908773858] [facility] Test 2022-01-14 00:00:00 SHINGLES VACCINES (1 of 2) [code = SHINGLES VACCINES (1 of 2)] [facility] Test 2022-01-14 00:00:00 Screening for malignant neoplasm of lung (procedure) [code = 900386140] [facility] Test 2022-01-14 00:00:00 SHINGLES VACCINES (1 of 2) [code = SHINGLES VACCINES (1 of 2)] [facility] Test 2022-01-14 00:00:00 Screening for malignant neoplasm of lung (procedure) [code = [id number]] [facility] Test 2022-01-14 00:00:00 SHINGLES VACCINES (1 of 2) [code = SHINGLES VACCINES (1 of 2)] [facility] Test 2022-01-14 00:00:00 Screening for malignant neoplasm of lung (procedure) [code = 173114850] [facility] Test 2022-01-14 00:00:00 SHINGLES VACCINES (1 of 2) [code = SHINGLES VACCINES (1 of 2)] [facility] Test 2022-01-14 00:00:00 Screening for malignant neoplasm of lung (procedure) [code = 340341868] [facility] Test 2022-01-14 00:00:00 SHINGLES VACCINES (1 of 2) [code = SHINGLES VACCINES (1 of 2)] [facility] Test 2022-01-14 00:00:00 Screening for malignant neoplasm of lung (procedure) [code = 719891831] [facility] Test 2022-01-14 00:00:00 SHINGLES VACCINES (1 of 2) [code = SHINGLES VACCINES (1 of 2)] [facility] Test 2022-01-14 00:00:00 Screening for malignant neoplasm of lung (procedure) [code = 318720147] [facility] Test 2022-01-14 00:00:00 SHINGLES VACCINES (1 of 2) [code = SHINGLES VACCINES (1 of 2)] [facility] Test 2022-01-14 00:00:00 Screening for malignant neoplasm of lung (procedure) [code = 161156261] [facility] Test 2022-01-14 00:00:00 SHINGLES VACCINES (1 of 2) [code = SHINGLES VACCINES (1 of 2)] [facility] Test 2022-01-14 00:00:00 Screening for malignant neoplasm of lung (procedure) [code = 642046306] [facility] Test 2022-01-14 00:00:00 SHINGLES VACCINES (1 of 2) [code = SHINGLES VACCINES (1 of 2)] [facility] Test 2022-01-14 00:00:00 Screening for malignant neoplasm of lung (procedure) [code = 283709905] [facility] Test 2022-01-14 00:00:00 SHINGLES VACCINES (1 of 2) [code = SHINGLES VACCINES (1 of 2)] [facility] Test 2022-01-14 00:00:00 Screening for malignant neoplasm of lung (procedure) [code = 560214135] [facility] Test 2022-01-14 00:00:00 SHINGLES VACCINES (1 of 2) [code = SHINGLES VACCINES (1 of 2)] [facility] Test 2022-01-14 00:00:00 Screening for malignant neoplasm of lung (procedure) [code = 227686429] [facility] Test 2022-01-14 00:00:00 SHINGLES VACCINES (1 of 2) [code = SHINGLES VACCINES (1 of 2)] [facility] Test 2022-01-14 00:00:00 Screening for malignant neoplasm of lung (procedure) [code = 081834109] [facility] Test 2022-01-14 00:00:00 SHINGLES VACCINES (1 of 2) [code = SHINGLES VACCINES (1 of 2)] [facility] Test 2022-01-14 00:00:00 Screening for malignant neoplasm of lung (procedure) [code = 241196107] [facility] Test 2022-01-14 00:00:00 SHINGLES VACCINES (1 of 2) [code = SHINGLES VACCINES (1 of 2)] [facility] Test 2022-01-14 00:00:00 Screening for malignant neoplasm of lung (procedure) [code = 995693634] [facility] Test 2022-01-14 00:00:00 Screening for malignant neoplasm of lung (procedure) [code = 948626118] [facility] Test 2022-01-14 00:00:00 SHINGLES VACCINES (1 of 2) [code = SHINGLES VACCINES (1 of 2)] [facility] Test 2022-01-14 00:00:00 SHINGLES VACCINES (1 of 2) [code = SHINGLES VACCINES (1 of 2)] [facility] Test 2022-01-14 00:00:00 Screening for malignant neoplasm of lung (procedure) [code = 865840318] [facility] Test 2022-01-14 00:00:00 SHINGLES VACCINES (1 of 2) [code = SHINGLES VACCINES (1 of 2)] [facility] Test 2022-01-14 00:00:00 Screening for malignant neoplasm of lung (procedure) [code = 940121757] [facility] Test 2022-01-14 00:00:00 SHINGLES VACCINES (1 of 2) [code = SHINGLES VACCINES (1 of 2)] [facility] Test 2022-01-14 00:00:00 Screening for malignant neoplasm of lung (procedure) [code = 953664986] [facility] Test 2022-01-14 00:00:00 SHINGLES VACCINES (1 of 2) [code = SHINGLES VACCINES (1 of 2)] [facility] Test 2022-01-14 00:00:00 Screening for malignant neoplasm of lung (procedure) [code = 392335017] [facility] Test 2022-01-14 00:00:00 Screening for malignant neoplasm of lung (procedure) [code = 816304615] [facility] Test 2022-01-14 00:00:00 SHINGLES VACCINES (1 of 2) [code = SHINGLES VACCINES (1 of 2)] [facility] Test 2022-01-14 00:00:00 SHINGLES VACCINES (1 of 2) [code = SHINGLES VACCINES (1 of 2)] [facility] Test 2022-01-14 00:00:00 Screening for malignant neoplasm of lung (procedure) [code = 821854544] [facility] Test 2022-01-14 00:00:00 SHINGLES VACCINES (1 of 2) [code = SHINGLES VACCINES (1 of 2)] [facility] Test 2022-01-14 00:00:00 Screening for malignant neoplasm of lung (procedure) [code = 520061963] [facility] Test 2022-01-14 00:00:00 SHINGLES VACCINES (1 of 2) [code = SHINGLES VACCINES (1 of 2)] [facility] Test 2022-01-14 00:00:00 Screening for malignant neoplasm of lung (procedure) [code = 343868135] [facility] Test 2022-01-14 00:00:00 SHINGLES VACCINES (1 of 2) [code = SHINGLES VACCINES (1 of 2)] [facility] Test 2022-01-14 00:00:00 Screening for malignant neoplasm of lung (procedure) [code = 038448308] [facility] Test 2022-01-14 00:00:00 SHINGLES VACCINES (1 of 2) [code = SHINGLES VACCINES (1 of 2)] [facility] Test 2022-01-14 00:00:00 Screening for malignant neoplasm of lung (procedure) [code = 273180546] [facility] Test 2022-01-14 00:00:00 SHINGLES VACCINES (1 of 2) [code = SHINGLES VACCINES (1 of 2)] [facility] Test 2022-01-14 00:00:00 Screening for malignant neoplasm of lung (procedure) [code = 931347184] [facility] Test 2022-01-14 00:00:00 Screening for malignant neoplasm of lung (procedure) [code = 686022421] [facility] Test 2022-01-14 00:00:00 SHINGLES VACCINES (1 of 2) [code = SHINGLES VACCINES (1 of 2)] [facility] Test 2022-01-14 00:00:00 SHINGLES VACCINES (1 of 2) [code = SHINGLES VACCINES (1 of 2)] [facility] Test 2022-01-14 00:00:00 Screening for malignant neoplasm of lung (procedure) [code = 851329031] [facility] Test 2022-01-14 00:00:00 SHINGLES VACCINES (1 of 2) [code = SHINGLES VACCINES (1 of 2)] [facility] Test 2022-01-14 00:00:00 Screening for malignant neoplasm of lung (procedure) [code = 133163973] [facility] Test 2022-01-14 00:00:00 SHINGLES VACCINES (1 of 2) [code = SHINGLES VACCINES (1 of 2)] [facility] Test 2022-01-14 00:00:00 Screening for malignant neoplasm of lung (procedure) [code = 796809688] [facility] Test 2022-01-14 00:00:00 SHINGLES VACCINES (1 of 2) [code = SHINGLES VACCINES (1 of 2)] [facility] Test 2022-01-14 00:00:00 Screening for malignant neoplasm of lung (procedure) [code = 976101496] [facility] Test 2022-01-14 00:00:00 SHINGLES VACCINES (1 of 2) [code = SHINGLES VACCINES (1 of 2)] [facility] Test 2022-01-14 00:00:00 Screening for malignant neoplasm of lung (procedure) [code = 869747571] [facility] Test 2022-01-14 00:00:00 SHINGLES VACCINES (1 of 2) [code = SHINGLES VACCINES (1 of 2)] [facility] Test 2022-01-14 00:00:00 Screening for malignant neoplasm of lung (procedure) [code = 865439009] [facility] Test 2022-01-14 00:00:00 SHINGLES VACCINES (1 of 2) [code = SHINGLES VACCINES (1 of 2)] [facility] Test 2022-01-14 00:00:00 Screening for malignant neoplasm of lung (procedure) [code = 751641304] [facility] Test 2022-01-14 00:00:00 SHINGLES VACCINES (1 of 2) [code = SHINGLES VACCINES (1 of 2)] [facility] Test 2022-01-14 00:00:00 Screening for malignant neoplasm of lung (procedure) [code = 869100776] [facility] Test 2022-01-14 00:00:00 SHINGLES VACCINES (1 of 2) [code = SHINGLES VACCINES (1 of 2)] [facility] Test 2022-01-14 00:00:00 Screening for malignant neoplasm of lung (procedure) [code = 501299360] [facility] Test 2022-01-14 00:00:00 SHINGLES VACCINES (1 of 2) [code = SHINGLES VACCINES (1 of 2)] [facility] Test 2022-01-14 00:00:00 Screening for malignant neoplasm of lung (procedure) [code = 747084926] [facility] Test 2022-01-14 00:00:00 SHINGLES VACCINES (1 of 2) [code = SHINGLES VACCINES (1 of 2)] [facility] Test 2022-01-14 00:00:00 Screening for malignant neoplasm of lung (procedure) [code = 608900206] [facility] Test 2022-01-14 00:00:00 SHINGLES VACCINES (1 of 2) [code = SHINGLES VACCINES (1 of 2)] [facility] Test 2022-01-14 00:00:00 Screening for malignant neoplasm of lung (procedure) [code = 740292257] [facility] Test 2022-01-14 00:00:00 SHINGLES VACCINES (1 of 2) [code = SHINGLES VACCINES (1 of 2)] [facility] Test 2022-01-14 00:00:00 Screening for malignant neoplasm of lung (procedure) [code = 834244465] [facility] Test 2022-01-14 00:00:00 SHINGLES VACCINES (1 of 2) [code = SHINGLES VACCINES (1 of 2)] [facility] Test 2022-01-14 00:00:00 Screening for malignant neoplasm of lung (procedure) [code = 602280684] [facility] Test 2022-01-14 00:00:00 SHINGLES VACCINES (1 of 2) [code = SHINGLES VACCINES (1 of 2)] [facility] Test 2022-01-14 00:00:00 SHINGLES VACCINES (1 of 2) [code = SHINGLES VACCINES (1 of 2)] [facility] Test 2022-01-14 00:00:00 SHINGLES VACCINES (1 of 2) [code = SHINGLES VACCINES (1 of 2)] [facility] Test 2022-01-14 00:00:00 Screening for malignant neoplasm of lung (procedure) [code = 193341833] [facility] Test 2022-01-14 00:00:00 SHINGLES VACCINES (1 of 2) [code = SHINGLES VACCINES (1 of 2)] [facility] Test 2022-01-14 00:00:00 Screening for malignant neoplasm of lung (procedure) [code = 580829672] [facility] Test 2022-01-14 00:00:00 SHINGLES VACCINES (1 of 2) [code = SHINGLES VACCINES (1 of 2)] [facility] Test 2022-01-14 00:00:00 Screening for malignant neoplasm of lung (procedure) [code = 189873317] [facility] Test 2022-01-14 00:00:00 SHINGLES VACCINES (1 of 2) [code = SHINGLES VACCINES (1 of 2)] [facility] Test 2022-01-14 00:00:00 Screening for malignant neoplasm of lung (procedure) [code = 177946375] [facility] Test 2022-01-14 00:00:00 SHINGLES VACCINES (1 of 2) [code = SHINGLES VACCINES (1 of 2)] [facility] Test 2022-01-14 00:00:00 Screening for malignant neoplasm of lung (procedure) [code = 929487991] [facility] Test 2022-01-14 00:00:00 SHINGLES VACCINES (1 of 2) [code = SHINGLES VACCINES (1 of 2)] [facility] Test 2022-01-14 00:00:00 Screening for malignant neoplasm of lung (procedure) [code = 803189373] [facility] Test 2022-01-14 00:00:00 SHINGLES VACCINES (1 of 2) [code = SHINGLES VACCINES (1 of 2)] [facility] Test 2022-01-14 00:00:00 Screening for malignant neoplasm of lung (procedure) [code = 801414659] [facility] Test 2022-01-14 00:00:00 SHINGLES VACCINES (1 of 2) [code = SHINGLES VACCINES (1 of 2)] [facility] Test 2013-12-15 00:00:00 PNEUMOCOCCAL VACCINE 0-64 YRS (2 - PCV) [code = PNEUMOCOCCAL VACCINE 0-64 YRS (2 - PCV)] [facility] Test 2013-12-15 00:00:00 PNEUMOCOCCAL VACCINE 0-64 YRS (2 - PCV) [code = PNEUMOCOCCAL VACCINE 0-64 YRS (2 - PCV)] [facility] Test 2013-12-15 00:00:00 PNEUMOCOCCAL VACCINE 0-64 YRS (2 - PCV) [code = PNEUMOCOCCAL VACCINE 0-64 YRS (2 - PCV)] [facility] Test 2013-12-15 00:00:00 PNEUMOCOCCAL VACCINE 0-64 YRS (2 - PCV) [code = PNEUMOCOCCAL VACCINE 0-64 YRS (2 - PCV)] [facility] Test 2013-12-15 00:00:00 Pneumococcal Vaccine: 0-64 Years (2 - PCV) [code = Pneumococcal Vaccine: 0-64 Years (2 - PCV)] [facility] Test 2013-12-15 00:00:00 Pneumococcal Vaccine: 0-64 Years (2 - PCV) [code = Pneumococcal Vaccine: 0-64 Years (2 - PCV)] [facility] Test 2013-12-15 00:00:00 Pneumococcal Vaccine: 0-64 Years (2 - PCV) [code = Pneumococcal Vaccine: 0-64 Years (2 - PCV)] [facility] Test 2013-12-15 00:00:00 Pneumococcal Vaccine: 0-64 Years (2 - PCV) [code = Pneumococcal Vaccine: 0-64 Years (2 - PCV)] [facility] Test 2013-12-15 00:00:00 Pneumococcal Vaccine: 0-64 Years (2 - PCV) [code = Pneumococcal Vaccine: 0-64 Years (2 - PCV)] [facility] Test 2013-12-15 00:00:00 Pneumococcal Vaccine: 0-64 Years (2 - PCV) [code = Pneumococcal Vaccine: 0-64 Years (2 - PCV)] [facility]uled Test 2013-12-15 00:00:00 Pneumococcal Vaccine: 0-64 Years (2 - PCV) [code = Pneumococcal Vaccine: 0-64 Years (2 - PCV)] [facility] Test 2013-12-15 00:00:00 Pneumococcal Vaccine: 0-64 Years (2 - PCV) [code = Pneumococcal Vaccine: 0-64 Years (2 - PCV)] [facility] Test 2013-12-15 00:00:00 Pneumococcal Vaccine: 0-64 Years (2 - PCV) [code = Pneumococcal Vaccine: 0-64 Years (2 - PCV)] [facility]uled Test 2013-12-15 00:00:00 Pneumococcal Vaccine: 0-64 Years (2 - PCV) [code = Pneumococcal Vaccine: 0-64 Years (2 - PCV)] [facility]uled Test 2013-12-15 00:00:00 Pneumococcal Vaccine: 0-64 Years (2 - PCV) [code = Pneumococcal Vaccine: 0-64 Years (2 - PCV)] [facility]uled Test 2013-12-15 00:00:00 Pneumococcal Vaccine: 0-64 Years (2 - PCV) [code = Pneumococcal Vaccine: 0-64 Years (2 - PCV)] [facility]uled Test 2013-12-15 00:00:00 Pneumococcal Vaccine: 0-64 Years (2 - PCV) [code = Pneumococcal Vaccine: 0-64 Years (2 - PCV)] [facility]uled Test 2013-12-15 00:00:00 Pneumococcal Vaccine: 0-64 Years (2 - PCV) [code = Pneumococcal Vaccine: 0-64 Years (2 - PCV)] [facility]uled Test 2013-12-15 00:00:00 Pneumococcal Vaccine: 0-64 Years (2 - PCV) [code = Pneumococcal Vaccine: 0-64 Years (2 - PCV)] [facility] Test 2013-12-15 00:00:00 Pneumococcal Vaccine: 0-64 Years (2 - PCV) [code = Pneumococcal Vaccine: 0-64 Years (2 - PCV)] [facility]uled Test 2013-12-15 00:00:00 Pneumococcal Vaccine: 0-64 Years (2 - PCV) [code = Pneumococcal Vaccine: 0-64 Years (2 - PCV)] [facility] Scheduled Test 2013-12-15 00:00:00 Pneumococcal Vaccine: 0-64 Years (2 - PCV) [code = Pneumococcal Vaccine: 0-64 Years (2 - PCV)] [facility] Scheduled Test 2013-12-15 00:00:00 Pneumococcal Vaccine: 0-64 Years (2 - PCV) [code = Pneumococcal Vaccine: 0-64 Years (2 - PCV)] [facility]uled Test 2013-12-15 00:00:00 Pneumococcal Vaccine: 0-64 Years (2 - PCV) [code = Pneumococcal Vaccine: 0-64 Years (2 - PCV)] [facility] Scheduled Test 2013-12-15 00:00:00 Pneumococcal Vaccine: 0-64 Years (2 of 2 - PCV) [code = Pneumococcal Vaccine: 0-64 Years (2 of 2 - PCV)] [facility]uled Test 2013-12-15 00:00:00 Pneumococcal Vaccine: 0-64 Years (2 of 2 - PCV) [code = Pneumococcal Vaccine: 0-64 Years (2 of 2 - PCV)] [facility] Test 2013-12-15 00:00:00 Pneumococcal Vaccine: 0-64 Years (2 of 2 - PCV) [code = Pneumococcal Vaccine: 0-64 Years (2 of 2 - PCV)] [facility] Scheduled Test 2013-12-15 00:00:00 Pneumococcal Vaccine: 0-64 Years (2 of 2 - PCV) [code = Pneumococcal Vaccine: 0-64 Years (2 of 2 - PCV)] [facility] Scheduled Test 2013-12-15 00:00:00 Pneumococcal Vaccine: 0-64 Years (2 of 2 - PCV) [code = Pneumococcal Vaccine: 0-64 Years (2 of 2 - PCV)] [facility] Scheduled Test 2013-12-15 00:00:00 Pneumococcal Vaccine: 0-64 Years (2 of 2 - PCV) [code = Pneumococcal Vaccine: 0-64 Years (2 of 2 - PCV)] [facility] Scheduled Test 2013-12-15 00:00:00 Pneumococcal Vaccine: 0-64 Years (2 of 2 - PCV) [code = Pneumococcal Vaccine: 0-64 Years (2 of 2 - PCV)] [facility]uled Test 2013-12-15 00:00:00 Pneumococcal Vaccine: 0-64 Years (2 of 2 - PCV) [code = Pneumococcal Vaccine: 0-64 Years (2 of 2 - PCV)] [facility] Scheduled Test 2013-12-15 00:00:00 Pneumococcal Vaccine: 0-64 Years (2 of 2 - PCV) [code = Pneumococcal Vaccine: 0-64 Years (2 of 2 - PCV)] [facility] Scheduled Test 2013-12-15 00:00:00 Pneumococcal Vaccine: 0-64 Years (2 of 2 - PCV) [code = Pneumococcal Vaccine: 0-64 Years (2 of 2 - PCV)] [facility] Scheduled Test 2013-12-15 00:00:00 Pneumococcal Vaccine: 0-64 Years (2 of 2 - PCV) [code = Pneumococcal Vaccine: 0-64 Years (2 of 2 - PCV)] [facility] Test 2013-12-15 00:00:00 Pneumococcal Vaccine: 0-64 Years (2 of 2 - PCV) [code = Pneumococcal Vaccine: 0-64 Years (2 of 2 - PCV)] [facility] Test 2013-12-15 00:00:00 Pneumococcal Vaccine: 0-64 Years (2 of 2 - PCV) [code = Pneumococcal Vaccine: 0-64 Years (2 of 2 - PCV)] [facility] Scheduled Test 2013-12-15 00:00:00 Pneumococcal Vaccine: 0-64 Years (2 of 2 - PCV) [code = Pneumococcal Vaccine: 0-64 Years (2 of 2 - PCV)] [facility]uled Test 2013-12-15 00:00:00 Pneumococcal Vaccine: 0-64 Years (2 of 2 - PCV) [code = Pneumococcal Vaccine: 0-64 Years (2 of 2 - PCV)] [facility]uled Test 2013-12-15 00:00:00 Pneumococcal Vaccine: 0-64 Years (2 of 2 - PCV) [code = Pneumococcal Vaccine: 0-64 Years (2 of 2 - PCV)] [facility] Test 2013-12-15 00:00:00 Pneumococcal Vaccine: 0-64 Years (2 of 2 - PCV) [code = Pneumococcal Vaccine: 0-64 Years (2 of 2 - PCV)] [facility]uled Test 2013-12-15 00:00:00 Pneumococcal Vaccine: 0-64 Years (2 of 2 - PCV) [code = Pneumococcal Vaccine: 0-64 Years (2 of 2 - PCV)] [facility] Test 2013-12-15 00:00:00 Pneumococcal Vaccine: 0-64 Years (2 of 2 - PCV) [code = Pneumococcal Vaccine: 0-64 Years (2 of 2 - PCV)] [facility] Test 2013-12-15 00:00:00 Pneumococcal Vaccine: 0-64 Years (2 - PCV) [code = Pneumococcal Vaccine: 0-64 Years (2 - PCV)] [facility] Test 2013-12-15 00:00:00 Pneumococcal Vaccine: 0-64 Years (2 - PCV) [code = Pneumococcal Vaccine: 0-64 Years (2 - PCV)] [facility]uled Test 2013-12-15 00:00:00 Pneumococcal Vaccine: 0-64 Years (2 - PCV) [code = Pneumococcal Vaccine: 0-64 Years (2 - PCV)] [facility]uled Test 1993-01-14 00:00:00 Screening for malignant neoplasm of cervix (procedure) [code = [id number]] [facility] Test 1993-01-14 00:00:00 Screening for malignant neoplasm of cervix (procedure) [code = [id number]] [facility] Test 1993-01-14 00:00:00 Screening for malignant neoplasm of cervix (procedure) [code = [id number]] [facility] Test 1993-01-14 00:00:00 Screening for malignant neoplasm of cervix (procedure) [code = [id number]] [facility] Test 1993-01-14 00:00:00 Screening for malignant neoplasm of cervix (procedure) [code = [id number]] [facility] Test 1993-01-14 00:00:00 Screening for malignant neoplasm of cervix (procedure) [code = [id number]] [facility] Test 1993-01-14 00:00:00 Screening for malignant neoplasm of cervix (procedure) [code = 169971259] [facility] Test 1993-01-14 00:00:00 Screening for malignant neoplasm of cervix (procedure) [code = [id number]] [facility] Test 1993-01-14 00:00:00 Screening for malignant neoplasm of cervix (procedure) [code = [id number]] [facility] Test 1993-01-14 00:00:00 Screening for malignant neoplasm of cervix (procedure) [code = [id number]] [facility] Test 1993-01-14 00:00:00 Screening for malignant neoplasm of cervix (procedure) [code = 683800101] [facility] Test 1993-01-14 00:00:00 Screening for malignant neoplasm of cervix (procedure) [code = 685556180] [facility] Test 1993-01-14 00:00:00 Screening for malignant neoplasm of cervix (procedure) [code = 447111136] [facility] Test 1993-01-14 00:00:00 Screening for malignant neoplasm of cervix (procedure) [code = 125292144] [facility] Test 1993-01-14 00:00:00 Screening for malignant neoplasm of cervix (procedure) [code = 007056210] [facility] Test 1993-01-14 00:00:00 Screening for malignant neoplasm of cervix (procedure) [code = 983941227] [facility] Test 1993-01-14 00:00:00 Screening for malignant neoplasm of cervix (procedure) [code = 609951686] [facility] Test 1993-01-14 00:00:00 Screening for malignant neoplasm of cervix (procedure) [code = 244858769] [facility] Test 1993-01-14 00:00:00 Screening for malignant neoplasm of cervix (procedure) [code = 593525316] [facility] Test 1993-01-14 00:00:00 Screening for malignant neoplasm of cervix (procedure) [code = 965650955] [facility] Test 1993-01-14 00:00:00 Screening for malignant neoplasm of cervix (procedure) [code = 504986663] [facility] Test 1993-01-14 00:00:00 Screening for malignant neoplasm of cervix (procedure) [code = 501893486] [facility] Test 1993-01-14 00:00:00 Screening for malignant neoplasm of cervix (procedure) [code = 421125024] [facility] Test 1993-01-14 00:00:00 Screening for malignant neoplasm of cervix (procedure) [code = 996876710] [facility] Test 1993-01-14 00:00:00 Screening for malignant neoplasm of cervix (procedure) [code = 278901801] [facility] Test 1993-01-14 00:00:00 Screening for malignant neoplasm of cervix (procedure) [code = 061569967] [facility] Test 1993-01-14 00:00:00 Screening for malignant neoplasm of cervix (procedure) [code = 977486142] [facility] Test 1993-01-14 00:00:00 Screening for malignant neoplasm of cervix (procedure) [code = 995481668] [facility] Test 1993-01-14 00:00:00 Screening for malignant neoplasm of cervix (procedure) [code = 111638683] [facility] Test 1993-01-14 00:00:00 Screening for malignant neoplasm of cervix (procedure) [code = 408022785] [facility] Test 1993-01-14 00:00:00 Screening for malignant neoplasm of cervix (procedure) [code = 473087200] [facility] Test 1993-01-14 00:00:00 Screening for malignant neoplasm of cervix (procedure) [code = 028100149] [facility] Test 1993-01-14 00:00:00 Screening for malignant neoplasm of cervix (procedure) [code = 224272496] [facility] Test 1993-01-14 00:00:00 Screening for malignant neoplasm of cervix (procedure) [code = 469628847] [facility] Test 1993-01-14 00:00:00 Screening for malignant neoplasm of cervix (procedure) [code = 632418248] [facility] Test 1993-01-14 00:00:00 Screening for malignant neoplasm of cervix (procedure) [code = 086146421] [facility] Test 1993-01-14 00:00:00 Screening for malignant neoplasm of cervix (procedure) [code = 094382387] [facility] Test 1993-01-14 00:00:00 Screening for malignant neoplasm of cervix (procedure) [code = 850609254] [facility] Test 1993-01-14 00:00:00 Screening for malignant neoplasm of cervix (procedure) [code = 231647702] [facility] Test 1993-01-14 00:00:00 Screening for malignant neoplasm of cervix (procedure) [code = 293270988] [facility] Test 1993-01-14 00:00:00 Screening for malignant neoplasm of cervix (procedure) [code = 328152496] [facility] Test 1993-01-14 00:00:00 Screening for malignant neoplasm of cervix (procedure) [code = 145128361] [facility] Test 1993-01-14 00:00:00 Screening for malignant neoplasm of cervix (procedure) [code = 557165980] [facility] Test 1993-01-14 00:00:00 Screening for malignant neoplasm of cervix (procedure) [code = 492454726] [facility] Test 1993-01-14 00:00:00 Screening for malignant neoplasm of cervix (procedure) [code = 284837770] [facility] Test 1993-01-14 00:00:00 Screening for malignant neoplasm of cervix (procedure) [code = 675345711] [facility] Test 1993-01-14 00:00:00 Screening for malignant neoplasm of cervix (procedure) [code = [id number]] [facility] 1993-01-14 00:00:00 Screening for malignant neoplasm of cervix (procedure) [code = 252630542] [facility] 1993-01-14 00:00:00 Screening for malignant neoplasm of cervix (procedure) [code = 906439123] [facility] Test 1993-01-14 00:00:00 Screening for malignant neoplasm of cervix (procedure) [code = 168083850] [facility] 1993-01-14 00:00:00 Screening for malignant neoplasm of cervix (procedure) [code = 670526512] [facility] Test 1993-01-14 00:00:00 Screening for malignant neoplasm of cervix (procedure) [code = 632912368] [facility] Test 1993-01-14 00:00:00 Screening for malignant neoplasm of cervix (procedure) [code = 214706196] [facility] 1993-01-14 00:00:00 Screening for malignant neoplasm of cervix (procedure) [code = 265954504] [facility] Test 1993-01-14 00:00:00 Screening for malignant neoplasm of cervix (procedure) [code = 641305041] [facility] Test 1993-01-14 00:00:00 Screening for malignant neoplasm of cervix (procedure) [code = 368542749] [facility] Test 1993-01-14 00:00:00 Screening for malignant neoplasm of cervix (procedure) [code = 714729143] [facility] Test 1993-01-14 00:00:00 Screening for malignant neoplasm of cervix (procedure) [code = 321943505] [facility] Test 1993-01-14 00:00:00 Screening for malignant neoplasm of cervix (procedure) [code = 047774212] [facility] Test 1993-01-14 00:00:00 Screening for malignant neoplasm of cervix (procedure) [code = 946956142] [facility] Test 1993-01-14 00:00:00 Screening for malignant neoplasm of cervix (procedure) [code = 272816679] [facility] Test 1993-01-14 00:00:00 Screening for malignant neoplasm of cervix (procedure) [code = 436298364] [facility] Test 1993-01-14 00:00:00 Screening for malignant neoplasm of cervix (procedure) [code = 515666815] [facility] Test 1993-01-14 00:00:00 Screening for malignant neoplasm of cervix (procedure) [code = 842209056] [facility] Test 1993-01-14 00:00:00 Screening for malignant neoplasm of cervix (procedure) [code = 963945290] [facility] Test 1993-01-14 00:00:00 Screening for malignant neoplasm of cervix (procedure) [code = 270550877] [facility] Test 1993-01-14 00:00:00 Screening for malignant neoplasm of cervix (procedure) [code = 393577306] [facility] Test 1993-01-14 00:00:00 Screening for malignant neoplasm of cervix (procedure) [code = 343144442] [facility] Test 1993-01-14 00:00:00 Screening for malignant neoplasm of cervix (procedure) [code = 599865980] [facility] Test 1993-01-14 00:00:00 Screening for malignant neoplasm of cervix (procedure) [code = 980375841] [facility] Test 1991-01-14 00:00:00 DTAP/TDAP/TD VACCINES (1 - Tdap) [code = DTAP/TDAP/TD VACCINES (1 - Tdap)] [facility] Test 1991-01-14 00:00:00 DTAP/TDAP/TD VACCINES (1 - Tdap) [code = DTAP/TDAP/TD VACCINES (1 - Tdap)] [facility] Test 1991-01-14 00:00:00 DTAP/TDAP/TD VACCINES (1 - Tdap) [code = DTAP/TDAP/TD VACCINES (1 - Tdap)] [facility] Test 1991-01-14 00:00:00 DTAP/TDAP/TD VACCINES (1 - Tdap) [code = DTAP/TDAP/TD VACCINES (1 - Tdap)] [facility] Test 1991-01-14 00:00:00 DTAP/TDAP/TD VACCINES (1 - Tdap) [code = DTAP/TDAP/TD VACCINES (1 - Tdap)] [facility] Test 1991-01-14 00:00:00 DTAP/TDAP/TD VACCINES (1 - Tdap) [code = DTAP/TDAP/TD VACCINES (1 - Tdap)] [facility] Test 1991-01-14 00:00:00 DTAP/TDAP/TD VACCINES (1 - Tdap) [code = DTAP/TDAP/TD VACCINES (1 - Tdap)] [facility] Test 1991-01-14 00:00:00 DTAP/TDAP/TD VACCINES (1 - Tdap) [code = DTAP/TDAP/TD VACCINES (1 - Tdap)] [facility] Test 1991-01-14 00:00:00 DTAP/TDAP/TD VACCINES (1 - Tdap) [code = DTAP/TDAP/TD VACCINES (1 - Tdap)] [facility] Test 1991-01-14 00:00:00 DTAP/TDAP/TD VACCINES (1 - Tdap) [code = DTAP/TDAP/TD VACCINES (1 - Tdap)] [facility] Test 1991-01-14 00:00:00 DTAP/TDAP/TD VACCINES (1 - Tdap) [code = DTAP/TDAP/TD VACCINES (1 - Tdap)] [facility] Test 1991-01-14 00:00:00 DTAP/TDAP/TD VACCINES (1 - Tdap) [code = DTAP/TDAP/TD VACCINES (1 - Tdap)] [facility] Test 1991-01-14 00:00:00 DTAP/TDAP/TD VACCINES (1 - Tdap) [code = DTAP/TDAP/TD VACCINES (1 - Tdap)] [facility] Test 1991-01-14 00:00:00 DTAP/TDAP/TD VACCINES (1 - Tdap) [code = DTAP/TDAP/TD VACCINES (1 - Tdap)] [facility] Test 1991-01-14 00:00:00 DTAP/TDAP/TD VACCINES (1 - Tdap) [code = DTAP/TDAP/TD VACCINES (1 - Tdap)] [facility] Test 1991-01-14 00:00:00 DTAP/TDAP/TD VACCINES (1 - Tdap) [code = DTAP/TDAP/TD VACCINES (1 - Tdap)] [facility] Test 1991-01-14 00:00:00 DTAP/TDAP/TD VACCINES (1 - Tdap) [code = DTAP/TDAP/TD VACCINES (1 - Tdap)] [facility] Test 1991-01-14 00:00:00 DTAP/TDAP/TD VACCINES (1 - Tdap) [code = DTAP/TDAP/TD VACCINES (1 - Tdap)] [facility] Test 1991-01-14 00:00:00 DTAP/TDAP/TD VACCINES (1 - Tdap) [code = DTAP/TDAP/TD VACCINES (1 - Tdap)] [facility] Test 1991-01-14 00:00:00 DTAP/TDAP/TD VACCINES (1 - Tdap) [code = DTAP/TDAP/TD VACCINES (1 - Tdap)] [facility] Test 1991-01-14 00:00:00 DTAP/TDAP/TD VACCINES (1 - Tdap) [code = DTAP/TDAP/TD VACCINES (1 - Tdap)] [facility] Test 1991-01-14 00:00:00 DTAP/TDAP/TD VACCINES (1 - Tdap) [code = DTAP/TDAP/TD VACCINES (1 - Tdap)] [facility] Test 1991-01-14 00:00:00 DTAP/TDAP/TD VACCINES (1 - Tdap) [code = DTAP/TDAP/TD VACCINES (1 - Tdap)] [facility] Test 1991-01-14 00:00:00 DTAP/TDAP/TD VACCINES (1 - Tdap) [code = DTAP/TDAP/TD VACCINES (1 - Tdap)] [facility] Test 1991-01-14 00:00:00 DTAP/TDAP/TD VACCINES (1 - Tdap) [code = DTAP/TDAP/TD VACCINES (1 - Tdap)] [facility] Test 1991-01-14 00:00:00 DTAP/TDAP/TD VACCINES (1 - Tdap) [code = DTAP/TDAP/TD VACCINES (1 - Tdap)] [facility] Test 1991-01-14 00:00:00 DTAP/TDAP/TD VACCINES (1 - Tdap) [code = DTAP/TDAP/TD VACCINES (1 - Tdap)] [facility] Test 1991-01-14 00:00:00 DTAP/TDAP/TD VACCINES (1 - Tdap) [code = DTAP/TDAP/TD VACCINES (1 - Tdap)] [facility] Test 1991-01-14 00:00:00 DTAP/TDAP/TD VACCINES (1 - Tdap) [code = DTAP/TDAP/TD VACCINES (1 - Tdap)] [facility] Test 1991-01-14 00:00:00 DTAP/TDAP/TD VACCINES (1 - Tdap) [code = DTAP/TDAP/TD VACCINES (1 - Tdap)] [facility] Test 1991-01-14 00:00:00 DTAP/TDAP/TD VACCINES (1 - Tdap) [code = DTAP/TDAP/TD VACCINES (1 - Tdap)] [facility] Test 1991-01-14 00:00:00 DTAP/TDAP/TD VACCINES (1 - Tdap) [code = DTAP/TDAP/TD VACCINES (1 - Tdap)] [facility] Test 1991-01-14 00:00:00 DTAP/TDAP/TD VACCINES (1 - Tdap) [code = DTAP/TDAP/TD VACCINES (1 - Tdap)] [facility] Test 1991-01-14 00:00:00 DTAP/TDAP/TD VACCINES (1 - Tdap) [code = DTAP/TDAP/TD VACCINES (1 - Tdap)] [facility] Test 1991-01-14 00:00:00 DTAP/TDAP/TD VACCINES (1 - Tdap) [code = DTAP/TDAP/TD VACCINES (1 - Tdap)] [facility] Test 1991-01-14 00:00:00 DTAP/TDAP/TD VACCINES (1 - Tdap) [code = DTAP/TDAP/TD VACCINES (1 - Tdap)] [facility] Test 1991-01-14 00:00:00 DTAP/TDAP/TD VACCINES (1 - Tdap) [code = DTAP/TDAP/TD VACCINES (1 - Tdap)] [facility] 1991-01-14 00:00:00 DTAP/TDAP/TD VACCINES (1 - Tdap) [code = DTAP/TDAP/TD VACCINES (1 - Tdap)] [facility] Test 1991-01-14 00:00:00 DTAP/TDAP/TD VACCINES (1 - Tdap) [code = DTAP/TDAP/TD VACCINES (1 - Tdap)] [facility] Test 1991-01-14 00:00:00 DTAP/TDAP/TD VACCINES (1 - Tdap) [code = DTAP/TDAP/TD VACCINES (1 - Tdap)] [facility] Test 1991-01-14 00:00:00 DTAP/TDAP/TD VACCINES (1 - Tdap) [code = DTAP/TDAP/TD VACCINES (1 - Tdap)] [facility] Test 1991-01-14 00:00:00 DTAP/TDAP/TD VACCINES (1 - Tdap) [code = DTAP/TDAP/TD VACCINES (1 - Tdap)] [facility] Test 1991-01-14 00:00:00 DTAP/TDAP/TD VACCINES (1 - Tdap) [code = DTAP/TDAP/TD VACCINES (1 - Tdap)] [facility] 1991-01-14 00:00:00 DTAP/TDAP/TD VACCINES (1 - Tdap) [code = DTAP/TDAP/TD VACCINES (1 - Tdap)] [facility] Test 1991-01-14 00:00:00 DTAP/TDAP/TD VACCINES (1 - Tdap) [code = DTAP/TDAP/TD VACCINES (1 - Tdap)] [facility] 1991-01-14 00:00:00 DTAP/TDAP/TD VACCINES (1 - Tdap) [code = DTAP/TDAP/TD VACCINES (1 - Tdap)] [facility] 1991-01-14 00:00:00 DTAP/TDAP/TD VACCINES (1 - Tdap) [code = DTAP/TDAP/TD VACCINES (1 - Tdap)] [facility] 1991-01-14 00:00:00 DTAP/TDAP/TD VACCINES (1 - Tdap) [code = DTAP/TDAP/TD VACCINES (1 - Tdap)] [facility] 1991-01-14 00:00:00 DTAP/TDAP/TD VACCINES (1 - Tdap) [code = DTAP/TDAP/TD VACCINES (1 - Tdap)] [facility] 1991-01-14 00:00:00 DTAP/TDAP/TD VACCINES (1 - Tdap) [code = DTAP/TDAP/TD VACCINES (1 - Tdap)] [facility] 1991-01-14 00:00:00 DTAP/TDAP/TD VACCINES (1 - Tdap) [code = DTAP/TDAP/TD VACCINES (1 - Tdap)] [facility] 1991-01-14 00:00:00 DTAP/TDAP/TD VACCINES (1 - Tdap) [code = DTAP/TDAP/TD VACCINES (1 - Tdap)] [facility] 1991-01-14 00:00:00 DTAP/TDAP/TD VACCINES (1 - Tdap) [code = DTAP/TDAP/TD VACCINES (1 - Tdap)] [facility] Test 1991-01-14 00:00:00 DTAP/TDAP/TD VACCINES (1 - Tdap) [code = DTAP/TDAP/TD VACCINES (1 - Tdap)] [facility] 1991-01-14 00:00:00 DTAP/TDAP/TD VACCINES (1 - Tdap) [code = DTAP/TDAP/TD VACCINES (1 - Tdap)] [facility] 1991-01-14 00:00:00 DTAP/TDAP/TD VACCINES (1 - Tdap) [code = DTAP/TDAP/TD VACCINES (1 - Tdap)] [facility] Test 1991-01-14 00:00:00 DTAP/TDAP/TD VACCINES (1 - Tdap) [code = DTAP/TDAP/TD VACCINES (1 - Tdap)] [facility] 1991-01-14 00:00:00 DTAP/TDAP/TD VACCINES (1 - Tdap) [code = DTAP/TDAP/TD VACCINES (1 - Tdap)] [facility] 1991-01-14 00:00:00 DTAP/TDAP/TD VACCINES (1 - Tdap) [code = DTAP/TDAP/TD VACCINES (1 - Tdap)] [facility] 1991-01-14 00:00:00 DTAP/TDAP/TD VACCINES (1 - Tdap) [code = DTAP/TDAP/TD VACCINES (1 - Tdap)] [facility] 1991-01-14 00:00:00 DTAP/TDAP/TD VACCINES (1 - Tdap) [code = DTAP/TDAP/TD VACCINES (1 - Tdap)] [facility] Test 1991-01-14 00:00:00 DTAP/TDAP/TD VACCINES (1 - Tdap) [code = DTAP/TDAP/TD VACCINES (1 - Tdap)] [facility] Test 1991-01-14 00:00:00 DTAP/TDAP/TD VACCINES (1 - Tdap) [code = DTAP/TDAP/TD VACCINES (1 - Tdap)] [facility] Test 1991-01-14 00:00:00 DTAP/TDAP/TD VACCINES (1 - Tdap) [code = DTAP/TDAP/TD VACCINES (1 - Tdap)] [facility] Test 1991-01-14 00:00:00 DTAP/TDAP/TD VACCINES (1 - Tdap) [code = DTAP/TDAP/TD VACCINES (1 - Tdap)] [facility] Test 1991-01-14 00:00:00 DTAP/TDAP/TD VACCINES (1 - Tdap) [code = DTAP/TDAP/TD VACCINES (1 - Tdap)] [facility] Test 1991-01-14 00:00:00 DTAP/TDAP/TD VACCINES (1 - Tdap) [code = DTAP/TDAP/TD VACCINES (1 - Tdap)] [facility] Test 1991-01-14 00:00:00 DTAP/TDAP/TD VACCINES (1 - Tdap) [code = DTAP/TDAP/TD VACCINES (1 - Tdap)] [facility] Test 1991-01-14 00:00:00 DTAP/TDAP/TD VACCINES (1 - Tdap) [code = DTAP/TDAP/TD VACCINES (1 - Tdap)] [facility] Test 1991-01-14 00:00:00 DTAP/TDAP/TD VACCINES (1 - Tdap) [code = DTAP/TDAP/TD VACCINES (1 - Tdap)] [facility] Test 1990-01-14 00:00:00 HEPATITIS C SCREENING [code = HEPATITIS C SCREENING] [facility] 1990-01-14 00:00:00 HEPATITIS C SCREENING [code = HEPATITIS C SCREENING] [facility] 1990-01-14 00:00:00 HEPATITIS C SCREENING [code = HEPATITIS C SCREENING] [facility] 1990-01-14 00:00:00 HEPATITIS C SCREENING [code = HEPATITIS C SCREENING] [facility] 1990-01-14 00:00:00 HEPATITIS C SCREENING [code = HEPATITIS C SCREENING] [facility] Test 1990-01-14 00:00:00 HEPATITIS C SCREENING [code = HEPATITIS C SCREENING] [facility] Test 1990-01-14 00:00:00 HEPATITIS C SCREENING [code = HEPATITIS C SCREENING] [facility] Test 1990-01-14 00:00:00 HEPATITIS C SCREENING [code = HEPATITIS C SCREENING] [facility] Test 1990-01-14 00:00:00 HEPATITIS C SCREENING [code = HEPATITIS C SCREENING] [facility] Test 1990-01-14 00:00:00 HEPATITIS C SCREENING [code = HEPATITIS C SCREENING] [facility] Test 1990-01-14 00:00:00 HEPATITIS C SCREENING [code = HEPATITIS C SCREENING] [facility] Test 1990-01-14 00:00:00 HEPATITIS C SCREENING [code = HEPATITIS C SCREENING] [facility] Test 1990-01-14 00:00:00 HEPATITIS C SCREENING [code = HEPATITIS C SCREENING] [facility] Test 1990-01-14 00:00:00 HEPATITIS C SCREENING [code = HEPATITIS C SCREENING] [facility] Test 1990-01-14 00:00:00 HEPATITIS C SCREENING [code = HEPATITIS C SCREENING] [facility] Test 1990-01-14 00:00:00 HEPATITIS C SCREENING [code = HEPATITIS C SCREENING] [facility] Test 1990-01-14 00:00:00 HEPATITIS C SCREENING [code = HEPATITIS C SCREENING] [facility] Test 1990-01-14 00:00:00 HEPATITIS C SCREENING [code = HEPATITIS C SCREENING] [facility] Test 1990-01-14 00:00:00 HEPATITIS C SCREENING [code = HEPATITIS C SCREENING] [facility] Test 1990-01-14 00:00:00 HEPATITIS C SCREENING [code = HEPATITIS C SCREENING] [facility] Test 1990-01-14 00:00:00 HEPATITIS C SCREENING [code = HEPATITIS C SCREENING] [facility] Test 1990-01-14 00:00:00 HEPATITIS C SCREENING [code = HEPATITIS C SCREENING] [facility] Test 1990-01-14 00:00:00 HEPATITIS C SCREENING [code = HEPATITIS C SCREENING] [facility] Scheduled Test 1990-01-14 00:00:00 HEPATITIS C SCREENING [code = HEPATITIS C SCREENING] [facility] Scheduled Test 1990-01-14 00:00:00 HEPATITIS C SCREENING [code = HEPATITIS C SCREENING] [facility] Scheduled Test 1990-01-14 00:00:00 HEPATITIS C SCREENING [code = HEPATITIS C SCREENING] [facility] Scheduled Test 1990-01-14 00:00:00 HEPATITIS C SCREENING [code = HEPATITIS C SCREENING] [facility] Scheduled Test 1990-01-14 00:00:00 HEPATITIS C SCREENING [code = HEPATITIS C SCREENING] [facility] Sched[facility] Test 1990-01-14 00:00:00 HEPATITIS C SCREENING [code = HEPATITIS C SCREENING] [facility] 1990-01-14 00:00:00 HEPATITIS C SCREENING [code = HEPATITIS C SCREENING] [facility] Test 1990-01-14 00:00:00 HEPATITIS C SCREENING [code = HEPATITIS C SCREENING] [facility] Test 1990-01-14 00:00:00 HEPATITIS C SCREENING [code = HEPATITIS C SCREENING] [facility] Test 1990-01-14 00:00:00 HEPATITIS C SCREENING [code = HEPATITIS C SCREENING] [facility] Test 1990-01-14 00:00:00 HEPATITIS C SCREENING [code = HEPATITIS C SCREENING] [facility] Test 1990-01-14 00:00:00 HEPATITIS C SCREENING [code = HEPATITIS C SCREENING] [facility] Test 1990-01-14 00:00:00 HEPATITIS C SCREENING [code = HEPATITIS C SCREENING] [facility] Test 1990-01-14 00:00:00 HEPATITIS C SCREENING [code = HEPATITIS C SCREENING] [facility] Test 1990-01-14 00:00:00 HEPATITIS C SCREENING [code = HEPATITIS C SCREENING] [facility] Test 1990-01-14 00:00:00 HEPATITIS C SCREENING [code = HEPATITIS C SCREENING] [facility] 1990-01-14 00:00:00 HEPATITIS C SCREENING [code = HEPATITIS C SCREENING] [facility] Test 1990-01-14 00:00:00 HEPATITIS C SCREENING [code = HEPATITIS C SCREENING] [facility] Test 1990-01-14 00:00:00 HEPATITIS C SCREENING [code = HEPATITIS C SCREENING] [facility] 1990-01-14 00:00:00 HEPATITIS C SCREENING [code = HEPATITIS C SCREENING] [facility] 1990-01-14 00:00:00 HEPATITIS C SCREENING [code = HEPATITIS C SCREENING] [facility] Test 1990-01-14 00:00:00 HEPATITIS C SCREENING [code = HEPATITIS C SCREENING] [facility] Test 1990-01-14 00:00:00 HEPATITIS C SCREENING [code = HEPATITIS C SCREENING] [facility] Test 1990-01-14 00:00:00 HEPATITIS C SCREENING [code = HEPATITIS C SCREENING] [facility] 1990-01-14 00:00:00 HEPATITIS C SCREENING [code = HEPATITIS C SCREENING] [facility] 1990-01-14 00:00:00 HEPATITIS C SCREENING [code = HEPATITIS C SCREENING] [facility] Test 1990-01-14 00:00:00 HEPATITIS C SCREENING [code = HEPATITIS C SCREENING] [facility] Test 1990-01-14 00:00:00 HEPATITIS C SCREENING [code = HEPATITIS C SCREENING] [facility] 1990-01-14 00:00:00 HEPATITIS C SCREENING [code = HEPATITIS C SCREENING] [facility] Test 1990-01-14 00:00:00 HEPATITIS C SCREENING [code = HEPATITIS C SCREENING] [facility] Test 1990-01-14 00:00:00 HEPATITIS C SCREENING [code = HEPATITIS C SCREENING] [facility] Test 1990-01-14 00:00:00 HEPATITIS C SCREENING [code = HEPATITIS C SCREENING] [facility] Test 1990-01-14 00:00:00 HEPATITIS C SCREENING [code = HEPATITIS C SCREENING] [facility] Test 1990-01-14 00:00:00 HEPATITIS C SCREENING [code = HEPATITIS C SCREENING] [facility] Test 1990-01-14 00:00:00 HEPATITIS C SCREENING [code = HEPATITIS C SCREENING] [facility] Test 1990-01-14 00:00:00 HEPATITIS C SCREENING [code = HEPATITIS C SCREENING] [facility] Test 1990-01-14 00:00:00 HEPATITIS C SCREENING [code = HEPATITIS C SCREENING] [facility] Test 1990-01-14 00:00:00 HEPATITIS C SCREENING [code = HEPATITIS C SCREENING] [facility] Test 1990-01-14 00:00:00 HEPATITIS C SCREENING [code = HEPATITIS C SCREENING] [facility] Test 1990-01-14 00:00:00 HEPATITIS C SCREENING [code = HEPATITIS C SCREENING] [facility] Test 1990-01-14 00:00:00 HEPATITIS C SCREENING [code = HEPATITIS C SCREENING] [facility] Test 1990-01-14 00:00:00 HEPATITIS C SCREENING [code = HEPATITIS C SCREENING] [facility] Test 1990-01-14 00:00:00 HEPATITIS C SCREENING [code = HEPATITIS C SCREENING] [facility] Test 1990-01-14 00:00:00 HEPATITIS C SCREENING [code = HEPATITIS C SCREENING] [facility] Test 1990-01-14 00:00:00 HEPATITIS C SCREENING [code = HEPATITIS C SCREENING] [facility] Test 1990-01-14 00:00:00 HEPATITIS C SCREENING [code = HEPATITIS C SCREENING] [facility] Test 1990-01-14 00:00:00 HEPATITIS C SCREENING [code = HEPATITIS C SCREENING] [facility] Test 1987-01-14 00:00:00 Human immunodeficiency virus screening (procedure) [code = [id number]] [facility] 1987-01-14 00:00:00 Human immunodeficiency virus screening (procedure) [code = [id number]] [facility] Test 1984 00:00:00 Tobacco Cessation Counseling and Screening (12+) [code = Tobacco Cessation Counseling and Screening (12+)] [facility] 1984 00:00:00 Tobacco Cessation Counseling and Screening (12+) [code = Tobacco Cessation Counseling and Screening (12+)] [facility] Test 1984 00:00:00 Tobacco Cessation Counseling and Screening (12+) [code = Tobacco Cessation Counseling and Screening (12+)] [facility] Test 1984 00:00:00 Tobacco Cessation Counseling and Screening (12+) [code = Tobacco Cessation Counseling and Screening (12+)] [facility] Test 1984 00:00:00 Tobacco Cessation Counseling and Screening (12+) [code = Tobacco Cessation Counseling and Screening (12+)] [facility] Test 1984 00:00:00 Tobacco Cessation Counseling and Screening (12+) [code = Tobacco Cessation Counseling and Screening (12+)] [facility] Test 1984 00:00:00 Tobacco Cessation Counseling and Screening (12+) [code = Tobacco Cessation Counseling and Screening (12+)] [facility] Test 1984 00:00:00 Tobacco Cessation Counseling and Screening (12+) [code = Tobacco Cessation Counseling and Screening (12+)] [facility] 1984 00:00:00 Tobacco Cessation Counseling and Screening (12+) [code = Tobacco Cessation Counseling and Screening (12+)] [facility] Scheduled Test 1984 00:00:00 Tobacco Cessation Counseling and Screening (12+) [code = Tobacco Cessation Counseling and Screening (12+)] [facility] 1984 00:00:00 Tobacco Cessation Counseling and Screening (12+) [code = Tobacco Cessation Counseling and Screening (12+)] [facility] Scheduled Test 1984 00:00:00 Tobacco Cessation Counseling and Screening (12+) [code = Tobacco Cessation Counseling and Screening (12+)] [facility] Scheduled Test 1984 00:00:00 Tobacco Cessation Counseling and Screening (12+) [code = Tobacco Cessation Counseling and Screening (12+)] [facility] Scheduled Test 1984 00:00:00 Tobacco Cessation Counseling and Screening (12+) [code = Tobacco Cessation Counseling and Screening (12+)] [facility] Scheduled Test 1984 00:00:00 Tobacco Cessation Counseling and Screening (12+) [code = Tobacco Cessation Counseling and Screening (12+)] [facility] Test 1984 00:00:00 Tobacco Cessation Counseling and Screening (12+) [code = Tobacco Cessation Counseling and Screening (12+)] [facility] Test 1984 00:00:00 Tobacco Cessation Counseling and Screening (12+) [code = Tobacco Cessation Counseling and Screening (12+)] [facility] Scheduled Test 1984 00:00:00 Tobacco Cessation Counseling and Screening (12+) [code = Tobacco Cessation Counseling and Screening (12+)] [facility] Scheduled Test 1984 00:00:00 Tobacco Cessation Counseling and Screening (12+) [code = Tobacco Cessation Counseling and Screening (12+)] [facility] Test 1984 00:00:00 Tobacco Cessation Counseling and Screening (12+) [code = Tobacco Cessation Counseling and Screening (12+)] [facility] Test 1984 00:00:00 Tobacco Cessation Counseling and Screening (12+) [code = Tobacco Cessation Counseling and Screening (12+)] [facility] Test 1984 00:00:00 Tobacco Cessation Counseling and Screening (12+) [code = Tobacco Cessation Counseling and Screening (12+)] [facility] Test 1984 00:00:00 Tobacco Cessation Counseling and Screening (12+) [code = Tobacco Cessation Counseling and Screening (12+)] [facility] Test 1972 00:00:00 Screening for malignant neoplasm of breast (procedure) [code = [id number]] [facility] 1972 00:00:00 CT Colonography (combo) [code = CT Colonography (combo)] [facility] 1972 00:00:00 Screening for malignant neoplasm of colon (procedure) [code = 095659153] [facility] Test 1972 00:00:00 Screening for malignant neoplasm of colon (procedure) [code = 547716867] [facility] Test 1972 00:00:00 Screening for malignant neoplasm of colon (procedure) [code = 795674537] [facility] Test 1972 00:00:00 Screening for malignant neoplasm of colon (procedure) [code = 115161069] [facility] Test 1972 00:00:00 Sigmoidoscopy [code = Sigmoidoscopy] [facility] 1972 00:00:00 Screening for malignant neoplasm of breast (procedure) [code = 776579520] [facility] Test 1972 00:00:00 CT Colonography (combo) [code = CT Colonography (combo)] [facility] Test 1972 00:00:00 Screening for malignant neoplasm of colon (procedure) [code = 294967203] [facility] Test 1972 00:00:00 Screening for malignant neoplasm of colon (procedure) [code = 292696817] [facility] Test 1972 00:00:00 Screening for malignant neoplasm of colon (procedure) [code = 856683560] [facility] Test 1972 00:00:00 Screening for malignant neoplasm of colon (procedure) [code = 762787716] [facility] Test 1972 00:00:00 Sigmoidoscopy [code = Sigmoidoscopy] [facility] Test 1972 00:00:00 Screening for malignant neoplasm of breast (procedure) [code = 146105207] [facility] Test 1972 00:00:00 CT Colonography (combo) [code = CT Colonography (combo)] [facility] Test 1972 00:00:00 Screening for malignant neoplasm of colon (procedure) [code = 802621956] [facility] Test 1972 00:00:00 Screening for malignant neoplasm of colon (procedure) [code = 170230763] [facility] Test 1972 00:00:00 Screening for malignant neoplasm of colon (procedure) [code = 892609547] [facility] Test 1972 00:00:00 Screening for malignant neoplasm of colon (procedure) [code = 075946879] [facility] Test 1972 00:00:00 Sigmoidoscopy [code = Sigmoidoscopy] [facility] Test 1972 00:00:00 Screening for malignant neoplasm of breast (procedure) [code = 554641577] [facility] Test 1972 00:00:00 CT Colonography (combo) [code = CT Colonography (combo)] [facility] Test 1972 00:00:00 Screening for malignant neoplasm of colon (procedure) [code = 251190495] [facility] Test 1972 00:00:00 Screening for malignant neoplasm of colon (procedure) [code = 019130223] [facility] Test 1972 00:00:00 Screening for malignant neoplasm of colon (procedure) [code = 467905259] [facility] Test 1972 00:00:00 Screening for malignant neoplasm of colon (procedure) [code = 668440694] [facility] Test 1972 00:00:00 Sigmoidoscopy [code = Sigmoidoscopy] [facility] Test 1972 00:00:00 Screening for malignant neoplasm of breast (procedure) [code = 573736885] [facility] Test 1972 00:00:00 CT Colonography (combo) [code = CT Colonography (combo)] [facility] 1972 00:00:00 Screening for malignant neoplasm of colon (procedure) [code = 160218551] [facility] Test 1972 00:00:00 Screening for malignant neoplasm of colon (procedure) [code = 117485953] [facility] Test 1972 00:00:00 Screening for malignant neoplasm of colon (procedure) [code = 670970135] [facility] Test 1972 00:00:00 Screening for malignant neoplasm of colon (procedure) [code = 020198813] [facility] Test 1972 00:00:00 Sigmoidoscopy [code = Sigmoidoscopy] [facility] 1972 00:00:00 Screening for malignant neoplasm of breast (procedure) [code = 966853814] [facility] Test 1972 00:00:00 CT Colonography (combo) [code = CT Colonography (combo)] [facility] Test 1972 00:00:00 Screening for malignant neoplasm of colon (procedure) [code = 278536736] [facility] Test 1972 00:00:00 Screening for malignant neoplasm of colon (procedure) [code = 670812755] [facility] Test 1972 00:00:00 Screening for malignant neoplasm of colon (procedure) [code = 614126276] [facility] Test 1972 00:00:00 Screening for malignant neoplasm of colon (procedure) [code = 875048259] [facility] Test 1972 00:00:00 Sigmoidoscopy [code = Sigmoidoscopy] [facility] 1972 00:00:00 Screening for malignant neoplasm of breast (procedure) [code = 900991946] [facility] Test 1972 00:00:00 CT Colonography (combo) [code = CT Colonography (combo)] [facility] Test 1972 00:00:00 Screening for malignant neoplasm of colon (procedure) [code = 477038124] [facility] Test 1972 00:00:00 Screening for malignant neoplasm of colon (procedure) [code = 194564881] [facility] Test 1972 00:00:00 Screening for malignant neoplasm of colon (procedure) [code = 087709676] [facility] Test 1972 00:00:00 Screening for malignant neoplasm of colon (procedure) [code = 343497113] [facility] Test 1972 00:00:00 Sigmoidoscopy [code = Sigmoidoscopy] [facility] Test 1972 00:00:00 Screening for malignant neoplasm of breast (procedure) [code = 821196270] [facility] Test 1972 00:00:00 CT Colonography (combo) [code = CT Colonography (combo)] [facility] Test 1972 00:00:00 Screening for malignant neoplasm of colon (procedure) [code = 418765230] [facility] Test 1972 00:00:00 Screening for malignant neoplasm of colon (procedure) [code = 129058311] [facility] Test 1972 00:00:00 Screening for malignant neoplasm of colon (procedure) [code = 689774264] [facility] Test 1972 00:00:00 Screening for malignant neoplasm of colon (procedure) [code = 962207146] [facility] Test 1972 00:00:00 Sigmoidoscopy [code = Sigmoidoscopy] [facility] Test 1972 00:00:00 Screening for malignant neoplasm of breast (procedure) [code = 963307367] [facility] Test 1972 00:00:00 CT Colonography (combo) [code = CT Colonography (combo)] [facility] 1972 00:00:00 Screening for malignant neoplasm of colon (procedure) [code = 302518477] [facility] Test 1972 00:00:00 Screening for malignant neoplasm of colon (procedure) [code = 853289166] [facility] Test 1972 00:00:00 Screening for malignant neoplasm of colon (procedure) [code = 316856125] [facility] Test 1972 00:00:00 Screening for malignant neoplasm of colon (procedure) [code = 552919100] [facility] Test 1972 00:00:00 Sigmoidoscopy [code = Sigmoidoscopy] [facility] Test 1972 00:00:00 Screening for malignant neoplasm of breast (procedure) [code = 657328977] [facility] Test 1972 00:00:00 CT Colonography (combo) [code = CT Colonography (combo)] [facility] 1972 00:00:00 Screening for malignant neoplasm of colon (procedure) [code = 004121500] [facility] Test 1972 00:00:00 Screening for malignant neoplasm of colon (procedure) [code = 139186813] [facility] Test 1972 00:00:00 Screening for malignant neoplasm of colon (procedure) [code = 244164931] [facility] Test 1972 00:00:00 Screening for malignant neoplasm of colon (procedure) [code = 457809089] [facility] Test 1972 00:00:00 Sigmoidoscopy [code = Sigmoidoscopy] [facility] 1972 00:00:00 Screening for malignant neoplasm of breast (procedure) [code = 709459953] [facility] Test 1972 00:00:00 CT Colonography (combo) [code = CT Colonography (combo)] [facility] Test 1972 00:00:00 Screening for malignant neoplasm of colon (procedure) [code = 922818926] [facility] Test 1972 00:00:00 Screening for malignant neoplasm of colon (procedure) [code = 166958763] [facility] Test 1972 00:00:00 Screening for malignant neoplasm of colon (procedure) [code = 118197552] [facility] Test 1972 00:00:00 Screening for malignant neoplasm of colon (procedure) [code = 013638496] [facility] Test 1972 00:00:00 Sigmoidoscopy [code = Sigmoidoscopy] [facility] 1972 00:00:00 Screening for malignant neoplasm of breast (procedure) [code = 198033214] [facility] Test 1972 00:00:00 CT Colonography (combo) [code = CT Colonography (combo)] [facility] 1972 00:00:00 Screening for malignant neoplasm of colon (procedure) [code = 649695564] [facility] Test 1972 00:00:00 Screening for malignant neoplasm of colon (procedure) [code = 655658708] [facility] Test 1972 00:00:00 Screening for malignant neoplasm of colon (procedure) [code = 473459158] [facility] Test 1972 00:00:00 Screening for malignant neoplasm of colon (procedure) [code = 306847535] [facility] 1972 00:00:00 Sigmoidoscopy [code = Sigmoidoscopy] [facility] 1972 00:00:00 Screening for malignant neoplasm of breast (procedure) [code = 645842927] [facility] Test 1972 00:00:00 CT Colonography (combo) [code = CT Colonography (combo)] [facility] 1972 00:00:00 Screening for malignant neoplasm of colon (procedure) [code = 258488395] [facility] 1972 00:00:00 Screening for malignant neoplasm of colon (procedure) [code = 094165050] [facility] Test 1972 00:00:00 Screening for malignant neoplasm of colon (procedure) [code = 886162587] [facility] Test 1972 00:00:00 Screening for malignant neoplasm of colon (procedure) [code = 484730990] [facility] Test 1972 00:00:00 Sigmoidoscopy [code = Sigmoidoscopy] [facility] 1972 00:00:00 Screening for malignant neoplasm of breast (procedure) [code = 497068885] [facility] Test 1972 00:00:00 CT Colonography (combo) [code = CT Colonography (combo)] [facility] 1972 00:00:00 Screening for malignant neoplasm of colon (procedure) [code = 449437704] [facility] Test 1972 00:00:00 Screening for malignant neoplasm of colon (procedure) [code = 896406881] [facility] Test 1972 00:00:00 Screening for malignant neoplasm of colon (procedure) [code = 198938467] [facility] Test 1972 00:00:00 Screening for malignant neoplasm of colon (procedure) [code = 142592956] [facility] Test 1972 00:00:00 Sigmoidoscopy [code = Sigmoidoscopy] [facility] 1972 00:00:00 Screening for malignant neoplasm of breast (procedure) [code = 108775108] [facility] Test 1972 00:00:00 CT Colonography (combo) [code = CT Colonography (combo)] [facility] 1972 00:00:00 Screening for malignant neoplasm of colon (procedure) [code = 288713587] [facility] Test 1972 00:00:00 Screening for malignant neoplasm of colon (procedure) [code = 256534545] [facility] 1972 00:00:00 Screening for malignant neoplasm of colon (procedure) [code = 102602865] [facility] Test 1972 00:00:00 Screening for malignant neoplasm of colon (procedure) [code = 844611214] [facility] Test 1972 00:00:00 Sigmoidoscopy [code = Sigmoidoscopy] [facility] 1972 00:00:00 Screening for malignant neoplasm of breast (procedure) [code = 997511941] [facility] Test 1972 00:00:00 CT Colonography (combo) [code = CT Colonography (combo)] [facility] 1972 00:00:00 Screening for malignant neoplasm of colon (procedure) [code = 663714160] [facility] 1972 00:00:00 Screening for malignant neoplasm of colon (procedure) [code = 089881179] [facility] 1972 00:00:00 Screening for malignant neoplasm of colon (procedure) [code = 911099049] [facility] Test 1972 00:00:00 Screening for malignant neoplasm of colon (procedure) [code = 119366135] [facility] Test 1972 00:00:00 Sigmoidoscopy [code = Sigmoidoscopy] [facility] 1972 00:00:00 Screening for malignant neoplasm of breast (procedure) [code = 322592459] [facility] Test 1972 00:00:00 CT Colonography (combo) [code = CT Colonography (combo)] [facility] 1972 00:00:00 Screening for malignant neoplasm of colon (procedure) [code = 573179489] [facility] Test 1972 00:00:00 Screening for malignant neoplasm of colon (procedure) [code = 614229580] [facility] Test 1972 00:00:00 Screening for malignant neoplasm of colon (procedure) [code = 347853762] [facility] Test 1972 00:00:00 Screening for malignant neoplasm of colon (procedure) [code = 283356520] [facility] Test 1972 00:00:00 Sigmoidoscopy [code = Sigmoidoscopy] [facility] 1972 00:00:00 Screening for malignant neoplasm of breast (procedure) [code = 667686381] [facility] Test 1972 00:00:00 CT Colonography (combo) [code = CT Colonography (combo)] [facility] 1972 00:00:00 Screening for malignant neoplasm of breast (procedure) [code = 832590664] [facility] Test 1972 00:00:00 CT Colonography (combo) [code = CT Colonography (combo)] [facility] Test 1972 00:00:00 Screening for malignant neoplasm of colon (procedure) [code = 504248640] [facility] Test 1972 00:00:00 Screening for malignant neoplasm of colon (procedure) [code = 373399635] [facility] 1972 00:00:00 Screening for malignant neoplasm of colon (procedure) [code = 599639153] [facility] 1972 00:00:00 Screening for malignant neoplasm of colon (procedure) [code = [id number]] [facility] 1972 00:00:00 Sigmoidoscopy [code = Sigmoidoscopy] [facility] 1972 00:00:00 Screening for malignant neoplasm of colon (procedure) [code = 093018997] [facility] 1972 00:00:00 Screening for malignant neoplasm of colon (procedure) [code = 497282055] [facility] 1972 00:00:00 Screening for malignant neoplasm of colon (procedure) [code = 408085464] [facility] 1972 00:00:00 Screening for malignant neoplasm of colon (procedure) [code = 154337310] [facility] 1972 00:00:00 Sigmoidoscopy [code = Sigmoidoscopy] [facility] 1972 00:00:00 Screening for malignant neoplasm of breast (procedure) [code = 750983814] [facility] 1972 00:00:00 CT Colonography (combo) [code = CT Colonography (combo)] [facility] 1972 00:00:00 Screening for malignant neoplasm of colon (procedure) [code = 170355480] [facility] 1972 00:00:00 Screening for malignant neoplasm of colon (procedure) [code = 074786600] [facility] 1972 00:00:00 Screening for malignant neoplasm of colon (procedure) [code = 055466145] [facility] 1972 00:00:00 Screening for malignant neoplasm of colon (procedure) [code = 871035892] [facility] 1972 00:00:00 Sigmoidoscopy [code = Sigmoidoscopy] [facility] 1972 00:00:00 Screening for malignant neoplasm of breast (procedure) [code = 484134140] [facility] 1972 00:00:00 CT Colonography (combo) [code = CT Colonography (combo)] [facility] 1972 00:00:00 Screening for malignant neoplasm of colon (procedure) [code = 430147911] [facility] 1972 00:00:00 Screening for malignant neoplasm of colon (procedure) [code = 885540356] [facility] 1972 00:00:00 Screening for malignant neoplasm of colon (procedure) [code = 491841370] [facility] 1972 00:00:00 Screening for malignant neoplasm of colon (procedure) [code = 225823008] [facility] 1972 00:00:00 Sigmoidoscopy [code = Sigmoidoscopy] [facility] 1972 00:00:00 Screening for malignant neoplasm of breast (procedure) [code = 250072198] [facility] 1972 00:00:00 CT Colonography (combo) [code = CT Colonography (combo)] [facility] 1972 00:00:00 Screening for malignant neoplasm of colon (procedure) [code = 555827157] [facility] 1972 00:00:00 Screening for malignant neoplasm of colon (procedure) [code = 734645990] [facility] 1972 00:00:00 Screening for malignant neoplasm of colon (procedure) [code = 983386413] [facility] 1972 00:00:00 Screening for malignant neoplasm of colon (procedure) [code = 566539289] [facility] 1972 00:00:00 Sigmoidoscopy [code = Sigmoidoscopy] [facility] 1972 00:00:00 Screening for malignant neoplasm of breast (procedure) [code = 822554017] [facility] 1972 00:00:00 CT Colonography (combo) [code = CT Colonography (combo)] [facility] 1972 00:00:00 Screening for malignant neoplasm of colon (procedure) [code = 392298058] [facility] 1972 00:00:00 Screening for malignant neoplasm of colon (procedure) [code = 510519476] [facility] 1972 00:00:00 Screening for malignant neoplasm of colon (procedure) [code = 440827820] [facility] 1972 00:00:00 Screening for malignant neoplasm of colon (procedure) [code = 888104599] [facility] 1972 00:00:00 Sigmoidoscopy [code = Sigmoidoscopy] [facility] 1972 00:00:00 Screening for malignant neoplasm of breast (procedure) [code = 185641742] [facility] 1972 00:00:00 CT Colonography (combo) [code = CT Colonography (combo)] [facility] 1972 00:00:00 Screening for malignant neoplasm of colon (procedure) [code = 743175531] [facility] 1972 00:00:00 Screening for malignant neoplasm of colon (procedure) [code = 593630306] [facility] 1972 00:00:00 Screening for malignant neoplasm of colon (procedure) [code = 290476330] [facility] 1972 00:00:00 Screening for malignant neoplasm of colon (procedure) [code = 550062580] [facility] 1972 00:00:00 Sigmoidoscopy [code = Sigmoidoscopy] [facility] 1972 00:00:00 Screening for malignant neoplasm of breast (procedure) [code = 877535784] [facility] 1972 00:00:00 CT Colonography (combo) [code = CT Colonography (combo)] [facility] 1972 00:00:00 Screening for malignant neoplasm of colon (procedure) [code = 210995105] [facility] 1972 00:00:00 Screening for malignant neoplasm of colon (procedure) [code = 158810978] [facility] 1972 00:00:00 Screening for malignant neoplasm of colon (procedure) [code = 547180771] [facility] 1972 00:00:00 Screening for malignant neoplasm of colon (procedure) [code = 354099383] [facility] 1972 00:00:00 Sigmoidoscopy [code = Sigmoidoscopy] [facility] 1972 00:00:00 Screening for malignant neoplasm of breast (procedure) [code = 038064681] [facility] 1972 00:00:00 CT Colonography (combo) [code = CT Colonography (combo)] [facility] 1972 00:00:00 Screening for malignant neoplasm of colon (procedure) [code = 598665880] [facility] 1972 00:00:00 Screening for malignant neoplasm of colon (procedure) [code = 435092804] [facility] 1972 00:00:00 Screening for malignant neoplasm of colon (procedure) [code = 095268530] [facility] 1972 00:00:00 Screening for malignant neoplasm of colon (procedure) [code = 418668395] [facility] 1972 00:00:00 Screening for malignant neoplasm of breast (procedure) [code = 236369981] [facility] 1972 00:00:00 CT Colonography (combo) [code = CT Colonography (combo)] [facility] 1972 00:00:00 Sigmoidoscopy [code = Sigmoidoscopy] [facility] 1972 00:00:00 Screening for malignant neoplasm of colon (procedure) [code = 081154524] [facility] 1972 00:00:00 Screening for malignant neoplasm of colon (procedure) [code = 055394875] [facility] 1972 00:00:00 Screening for malignant neoplasm of colon (procedure) [code = 919921465] [facility] 1972 00:00:00 Screening for malignant neoplasm of colon (procedure) [code = 461325510] [facility] 1972 00:00:00 Sigmoidoscopy [code = Sigmoidoscopy] [facility] 1972 00:00:00 Screening for malignant neoplasm of breast (procedure) [code = 314290907] [facility] 1972 00:00:00 CT Colonography (combo) [code = CT Colonography (combo)] [facility] 1972 00:00:00 Screening for malignant neoplasm of colon (procedure) [code = 477887667] [facility] 1972 00:00:00 Screening for malignant neoplasm of colon (procedure) [code = 231183325] [facility] 1972 00:00:00 Screening for malignant neoplasm of colon (procedure) [code = 410488609] [facility] 1972 00:00:00 Screening for malignant neoplasm of colon (procedure) [code = 387962534] [facility] 1972 00:00:00 Sigmoidoscopy [code = Sigmoidoscopy] [facility] 1972 00:00:00 Screening for malignant neoplasm of breast (procedure) [code = 330159028] [facility] 1972 00:00:00 CT Colonography (combo) [code = CT Colonography (combo)] [facility] 1972 00:00:00 Screening for malignant neoplasm of colon (procedure) [code = 697603061] [facility] 1972 00:00:00 Screening for malignant neoplasm of colon (procedure) [code = 838443735] [facility] 1972 00:00:00 Screening for malignant neoplasm of colon (procedure) [code = 628971665] [facility] 1972 00:00:00 Screening for malignant neoplasm of colon (procedure) [code = 745964369] [facility] 1972 00:00:00 Sigmoidoscopy [code = Sigmoidoscopy] [facility] 1972 00:00:00 Screening for malignant neoplasm of breast (procedure) [code = 324011806] [facility] 1972 00:00:00 CT Colonography (combo) [code = CT Colonography (combo)] [facility] 1972 00:00:00 Screening for malignant neoplasm of colon (procedure) [code = 226914813] [facility] 1972 00:00:00 Screening for malignant neoplasm of colon (procedure) [code = 500346366] [facility] 1972 00:00:00 Screening for malignant neoplasm of colon (procedure) [code = 319605730] [facility] 1972 00:00:00 Screening for malignant neoplasm of colon (procedure) [code = 233086675] [facility] 1972 00:00:00 Sigmoidoscopy [code = Sigmoidoscopy] [facility] 1972 00:00:00 Screening for malignant neoplasm of breast (procedure) [code = 718615760] [facility] 1972 00:00:00 CT Colonography (combo) [code = CT Colonography (combo)] [facility] 1972 00:00:00 Screening for malignant neoplasm of colon (procedure) [code = 727620244] [facility] 1972 00:00:00 Screening for malignant neoplasm of colon (procedure) [code = 482867241] [facility] 1972 00:00:00 Screening for malignant neoplasm of colon (procedure) [code = 038519769] [facility] 1972 00:00:00 Screening for malignant neoplasm of colon (procedure) [code = 258339922] [facility] 1972 00:00:00 Sigmoidoscopy [code = Sigmoidoscopy] [facility] 1972 00:00:00 Screening for malignant neoplasm of breast (procedure) [code = 811757942] [facility] 1972 00:00:00 CT Colonography (combo) [code = CT Colonography (combo)] [facility] 1972 00:00:00 Screening for malignant neoplasm of colon (procedure) [code = 675026327] [facility] 1972 00:00:00 Screening for malignant neoplasm of colon (procedure) [code = 296322447] [facility] 1972 00:00:00 Screening for malignant neoplasm of colon (procedure) [code = 795706211] [facility] 1972 00:00:00 Screening for malignant neoplasm of colon (procedure) [code = 197545548] [facility] 1972 00:00:00 Sigmoidoscopy [code = Sigmoidoscopy] [facility] 1972 00:00:00 Screening for malignant neoplasm of breast (procedure) [code = 184408645] [facility] 1972 00:00:00 CT Colonography (combo) [code = CT Colonography (combo)] [facility] 1972 00:00:00 Screening for malignant neoplasm of colon (procedure) [code = 892874672] [facility] 1972 00:00:00 Screening for malignant neoplasm of colon (procedure) [code = 134389626] [facility] 1972 00:00:00 Screening for malignant neoplasm of breast (procedure) [code = 202156900] [facility] 1972 00:00:00 Screening for malignant neoplasm of colon (procedure) [code = 494088414] [facility] 1972 00:00:00 CT Colonography (combo) [code = CT Colonography (combo)] [facility] 1972 00:00:00 Screening for malignant neoplasm of colon (procedure) [code = 273628159] [facility] 1972 00:00:00 Screening for malignant neoplasm of colon (procedure) [code = 757439074] [facility] 1972 00:00:00 Screening for malignant neoplasm of colon (procedure) [code = 912509077] [facility] 1972 00:00:00 Screening for malignant neoplasm of colon (procedure) [code = 888623202] [facility] 1972 00:00:00 Sigmoidoscopy [code = Sigmoidoscopy] [facility] 1972 00:00:00 Screening for malignant neoplasm of colon (procedure) [code = 444782118] [facility] 1972 00:00:00 Sigmoidoscopy [code = Sigmoidoscopy] [facility] 1972 00:00:00 Screening for malignant neoplasm of breast (procedure) [code = 844256524] [facility] 1972 00:00:00 CT Colonography (combo) [code = CT Colonography (combo)] [facility] 1972 00:00:00 Screening for malignant neoplasm of colon (procedure) [code = 340699708] [facility] 1972 00:00:00 Screening for malignant neoplasm of colon (procedure) [code = 789132767] [facility] 1972 00:00:00 Screening for malignant neoplasm of colon (procedure) [code = 711729089] [facility] 1972 00:00:00 Screening for malignant neoplasm of colon (procedure) [code = 277051949] [facility] 1972 00:00:00 Sigmoidoscopy [code = Sigmoidoscopy] [facility] 1972 00:00:00 Screening for malignant neoplasm of breast (procedure) [code = 369655880] [facility] 1972 00:00:00 CT Colonography (combo) [code = CT Colonography (combo)] [facility] 1972 00:00:00 Screening for malignant neoplasm of colon (procedure) [code = 666178308] [facility] 1972 00:00:00 Screening for malignant neoplasm of colon (procedure) [code = 811524724] [facility] 1972 00:00:00 Screening for malignant neoplasm of colon (procedure) [code = 808289379] [facility] 1972 00:00:00 Screening for malignant neoplasm of colon (procedure) [code = 736271193] [facility] 1972 00:00:00 Sigmoidoscopy [code = Sigmoidoscopy] [facility] 1972 00:00:00 Screening for malignant neoplasm of breast (procedure) [code = 082046110] [facility] 1972 00:00:00 CT Colonography (combo) [code = CT Colonography (combo)] [facility] 1972 00:00:00 Screening for malignant neoplasm of colon (procedure) [code = 129405232] [facility] 1972 00:00:00 Screening for malignant neoplasm of colon (procedure) [code = 431016375] [facility] 1972 00:00:00 Screening for malignant neoplasm of colon (procedure) [code = 480199858] [facility] 1972 00:00:00 Screening for malignant neoplasm of colon (procedure) [code = 380133958] [facility] 1972 00:00:00 Sigmoidoscopy [code = Sigmoidoscopy] [facility] 1972 00:00:00 Screening for malignant neoplasm of breast (procedure) [code = 602570836] [facility] 1972 00:00:00 CT Colonography (combo) [code = CT Colonography (combo)] [facility] 1972 00:00:00 Screening for malignant neoplasm of colon (procedure) [code = 966375890] [facility] 1972 00:00:00 Screening for malignant neoplasm of colon (procedure) [code = 673000597] [facility] 1972 00:00:00 Screening for malignant neoplasm of colon (procedure) [code = 200672252] [facility] 1972 00:00:00 Screening for malignant neoplasm of colon (procedure) [code = 772203983] [facility] 1972 00:00:00 Sigmoidoscopy [code = Sigmoidoscopy] [facility] 1972 00:00:00 Screening for malignant neoplasm of breast (procedure) [code = 349957852] [facility] 1972 00:00:00 CT Colonography (combo) [code = CT Colonography (combo)] [facility] 1972 00:00:00 Screening for malignant neoplasm of colon (procedure) [code = 702665218] [facility] 1972 00:00:00 Screening for malignant neoplasm of colon (procedure) [code = 225645108] [facility] 1972 00:00:00 Screening for malignant neoplasm of colon (procedure) [code = 200430815] [facility] 1972 00:00:00 Screening for malignant neoplasm of colon (procedure) [code = 616296239] [facility] 1972 00:00:00 Sigmoidoscopy [code = Sigmoidoscopy] [facility] 1972 00:00:00 Screening for malignant neoplasm of breast (procedure) [code = 890296952] [facility] 1972 00:00:00 CT Colonography (combo) [code = CT Colonography (combo)] [facility] 1972 00:00:00 Screening for malignant neoplasm of colon (procedure) [code = 904904043] [facility] 1972 00:00:00 Screening for malignant neoplasm of colon (procedure) [code = 906445440] [facility] 1972 00:00:00 Screening for malignant neoplasm of colon (procedure) [code = 760407778] [facility] 1972 00:00:00 Screening for malignant neoplasm of colon (procedure) [code = 824512136] [facility] 1972 00:00:00 Sigmoidoscopy [code = Sigmoidoscopy] [facility] 1972 00:00:00 Screening for malignant neoplasm of breast (procedure) [code = 997627062] [facility] 1972 00:00:00 CT Colonography (combo) [code = CT Colonography (combo)] [facility] 1972 00:00:00 Screening for malignant neoplasm of colon (procedure) [code = 363772378] [facility] 1972 00:00:00 Screening for malignant neoplasm of colon (procedure) [code = 083386965] [facility] 1972 00:00:00 Screening for malignant neoplasm of colon (procedure) [code = 546935018] [facility] 1972 00:00:00 Screening for malignant neoplasm of colon (procedure) [code = 730086095] [facility] 1972 00:00:00 Sigmoidoscopy [code = Sigmoidoscopy] [facility] 1972 00:00:00 Screening for malignant neoplasm of breast (procedure) [code = 428427540] [facility] 1972 00:00:00 CT Colonography (combo) [code = CT Colonography (combo)] [facility] 1972 00:00:00 Screening for malignant neoplasm of colon (procedure) [code = 350446737] [facility] 1972 00:00:00 Screening for malignant neoplasm of colon (procedure) [code = 075358487] [facility] 1972 00:00:00 Screening for malignant neoplasm of colon (procedure) [code = 328226768] [facility] 1972 00:00:00 Screening for malignant neoplasm of colon (procedure) [code = 761336634] [facility] 1972 00:00:00 Sigmoidoscopy [code = Sigmoidoscopy] [facility] 1972 00:00:00 Screening for malignant neoplasm of breast (procedure) [code = 156308183] [facility] 1972 00:00:00 CT Colonography (combo) [code = CT Colonography (combo)] [facility] 1972 00:00:00 Screening for malignant neoplasm of colon (procedure) [code = 744984785] [facility] 1972 00:00:00 Screening for malignant neoplasm of colon (procedure) [code = 941356928] [facility] 1972 00:00:00 Screening for malignant neoplasm of colon (procedure) [code = 506965245] [facility] 1972 00:00:00 Screening for malignant neoplasm of colon (procedure) [code = 661753048] [facility] 1972 00:00:00 Sigmoidoscopy [code = Sigmoidoscopy] [facility] 1972 00:00:00 Screening for malignant neoplasm of breast (procedure) [code = 338017198] [facility] 1972 00:00:00 CT Colonography (combo) [code = CT Colonography (combo)] [facility] 1972 00:00:00 Screening for malignant neoplasm of colon (procedure) [code = 769884951] [facility] 1972 00:00:00 Screening for malignant neoplasm of colon (procedure) [code = 546580739] [facility] 1972 00:00:00 Screening for malignant neoplasm of colon (procedure) [code = 016723276] [facility] 1972 00:00:00 Screening for malignant neoplasm of colon (procedure) [code = 398347381] [facility] 1972 00:00:00 Sigmoidoscopy [code = Sigmoidoscopy] [facility] 1972 00:00:00 Screening for malignant neoplasm of breast (procedure) [code = 543333166] [facility] 1972 00:00:00 CT Colonography (combo) [code = CT Colonography (combo)] [facility] 1972 00:00:00 Screening for malignant neoplasm of colon (procedure) [code = 673714564] [facility] 1972 00:00:00 Screening for malignant neoplasm of breast (procedure) [code = 593369659] [facility] 1972 00:00:00 CT Colonography (combo) [code = CT Colonography (combo)] [facility] 1972 00:00:00 Screening for malignant neoplasm of colon (procedure) [code = 362867795] [facility] 1972 00:00:00 Screening for malignant neoplasm of colon (procedure) [code = 206332354] [facility] 1972 00:00:00 Screening for malignant neoplasm of colon (procedure) [code = 720560706] [facility] 1972 00:00:00 Screening for malignant neoplasm of colon (procedure) [code = 953955520] [facility] 1972 00:00:00 Sigmoidoscopy [code = Sigmoidoscopy] [facility] 1972 00:00:00 Screening for malignant neoplasm of colon (procedure) [code = 028921802] [facility] 1972 00:00:00 Screening for malignant neoplasm of colon (procedure) [code = 705767259] [facility] 1972 00:00:00 Screening for malignant neoplasm of colon (procedure) [code = 949036362] [facility] 1972 00:00:00 Sigmoidoscopy [code = Sigmoidoscopy] [facility] 1972 00:00:00 Screening for malignant neoplasm of breast (procedure) [code = 417323786] [facility] 1972 00:00:00 CT Colonography (combo) [code = CT Colonography (combo)] [facility] 1972 00:00:00 Screening for malignant neoplasm of colon (procedure) [code = 237409595] [facility] 1972 00:00:00 Screening for malignant neoplasm of colon (procedure) [code = 579826320] [facility] 1972 00:00:00 Screening for malignant neoplasm of colon (procedure) [code = 062123329] [facility] Future Scheduled Test 1972 00:00:00 Screening for malignant neoplasm of colon (procedure) [code = 061047636] [facility] Future Scheduled Test 1972 00:00:00 Sigmoidoscopy [code = Sigmoidoscopy] [facility] Future Scheduled Test 1972 00:00:00 Screening for malignant neoplasm of breast (procedure) [code = 673005522] [facility] Future Scheduled Test 1972 00:00:00 CT Colonography (combo) [code = CT Colonography (combo)] [facility] Future Scheduled Test 1972 00:00:00 Screening for malignant neoplasm of colon (procedure) [code = 722015840] [facility] Future Scheduled Test 1972 00:00:00 Screening for malignant neoplasm of colon (procedure) [code = 376103941] [facility] Future Scheduled Test 1972 00:00:00 Screening for malignant neoplasm of colon (procedure) [code = 833286150] [facility] Future Scheduled Test 1972 00:00:00 Screening for malignant neoplasm of colon (procedure) [code = 847967050] [facility] Future Scheduled Test 1972 00:00:00 Sigmoidoscopy [code = Sigmoidoscopy] [facility] Future Scheduled Test 1972 00:00:00 Screening for malignant neoplasm of breast (procedure) [code = 679078670] [facility] Future Scheduled Test 1972 00:00:00 CT Colonography (combo) [code = CT Colonography (combo)] [facility] Future Scheduled Test 1972 00:00:00 Screening for malignant neoplasm of colon (procedure) [code = 562012011] [facility] Future Scheduled Test 1972 00:00:00 Screening for malignant neoplasm of colon (procedure) [code = 162264101] [facility] Future Scheduled Test 1972 00:00:00 Screening for malignant neoplasm of colon (procedure) [code = 934633765] [facility] Future Scheduled Test 1972 00:00:00 Screening for malignant neoplasm of colon (procedure) [code = 630176881] [facility] Future Scheduled Test 1972 00:00:00 Sigmoidoscopy [code = Sigmoidoscopy] [facility] Future Scheduled Test 1972 00:00:00 Screening for malignant neoplasm of breast (procedure) [code = 386620695] [facility] Future Scheduled Test 1972 00:00:00 CT Colonography (combo) [code = CT Colonography (combo)] [facility] Future Scheduled Test 1972 00:00:00 Screening for malignant neoplasm of colon (procedure) [code = 052397558] [facility] Future Scheduled Test 1972 00:00:00 Screening for malignant neoplasm of colon (procedure) [code = 797815920] [facility] Future Scheduled Test 1972 00:00:00 Screening for malignant neoplasm of colon (procedure) [code = 610196903] [facility] Future Scheduled Test 1972 00:00:00 Screening for malignant neoplasm of colon (procedure) [code = 044901218] [facility] Future Scheduled Test 1972 00:00:00 Sigmoidoscopy [code = Sigmoidoscopy] [facility] Future Scheduled Test 1972 00:00:00 Screening for malignant neoplasm of breast (procedure) [code = 458940446] [facility] Future Scheduled Test 1972 00:00:00 CT Colonography (combo) [code = CT Colonography (combo)] [facility] Future Scheduled Test 1972 00:00:00 Screening for malignant neoplasm of colon (procedure) [code = 759398823] [facility] Future Scheduled Test 1972 00:00:00 Screening for malignant neoplasm of colon (procedure) [code = 417222028] [facility] Future Scheduled Test 1972 00:00:00 Screening for malignant neoplasm of colon (procedure) [code = 580315814] [facility] Future Scheduled Test 1972 00:00:00 Screening for malignant neoplasm of colon (procedure) [code = 098164546] [facility] Future Scheduled Test 1972 00:00:00 Screening for malignant neoplasm of breast (procedure) [code = 027889560] [facility] Future Scheduled Test 1972 00:00:00 Sigmoidoscopy [code = Sigmoidoscopy] [facility] Future Scheduled Test 1972 00:00:00 CT Colonography (combo) [code = CT Colonography (combo)] [facility] Future Scheduled Test 1972 00:00:00 Screening for malignant neoplasm of colon (procedure) [code = 412298318] [facility] Future Scheduled Test 1972 00:00:00 Screening for malignant neoplasm of breast (procedure) [code = 507148056] [facility] Future Scheduled Test 1972 00:00:00 CT Colonography (combo) [code = CT Colonography (combo)] [facility] Future Scheduled Test 1972 00:00:00 Screening for malignant neoplasm of colon (procedure) [code = 375255829] [facility] Future Scheduled Test 1972 00:00:00 Screening for malignant neoplasm of colon (procedure) [code = 518829108] [facility] Future Scheduled Test 1972 00:00:00 Screening for malignant neoplasm of colon (procedure) [code = 781993657] [facility] Future Scheduled Test 1972 00:00:00 Screening for malignant neoplasm of colon (procedure) [code = 006258870] [facility] Future Scheduled Test 1972 00:00:00 Screening for malignant neoplasm of colon (procedure) [code = 994199086] [facility] Future Scheduled Test 1972 00:00:00 Sigmoidoscopy [code = Sigmoidoscopy] [facility] Future Scheduled Test 1972 00:00:00 Screening for malignant neoplasm of colon (procedure) [code = 093215307] [facility] Future Scheduled Test 1972 00:00:00 Screening for malignant neoplasm of colon (procedure) [code = 359557359] [facility] Future Scheduled Test 1972 00:00:00 Screening for malignant neoplasm of breast (procedure) [code = 102003685] [facility] Future Scheduled Test 1972 00:00:00 CT Colonography (combo) [code = CT Colonography (combo)] [facility] Future Scheduled Test 1972 00:00:00 Screening for malignant neoplasm of colon (procedure) [code = 695792805] [facility] Future Scheduled Test 1972 00:00:00 Screening for malignant neoplasm of colon (procedure) [code = 520045143] [facility] Future Scheduled Test 1972 00:00:00 Sigmoidoscopy [code = Sigmoidoscopy] [facility] Future Scheduled Test 1972 00:00:00 Screening for malignant neoplasm of colon (procedure) [code = 054658693] [facility] Future Scheduled Test 1972 00:00:00 Screening for malignant neoplasm of colon (procedure) [code = 778000597] [facility] Future Scheduled Test 1972 00:00:00 Sigmoidoscopy [code = Sigmoidoscopy] [facility] Future Scheduled Test 1972 00:00:00 Screening for malignant neoplasm of breast (procedure) [code = 997075765] [facility] Future Scheduled Test 1972 00:00:00 CT Colonography (combo) [code = CT Colonography (combo)] [facility] Future Scheduled Test 1972 00:00:00 Screening for malignant neoplasm of colon (procedure) [code = 085863733] [facility] Future Scheduled Test 1972 00:00:00 Screening for malignant neoplasm of colon (procedure) [code = 357301600] [facility] Future Scheduled Test 1972 00:00:00 Screening for malignant neoplasm of colon (procedure) [code = 970290824] [facility] Future Scheduled Test 1972 00:00:00 Screening for malignant neoplasm of colon (procedure) [code = 531454246] [facility] Future Scheduled Test 1972 00:00:00 Sigmoidoscopy [code = Sigmoidoscopy] [facility] Future Scheduled Test 1972 00:00:00 Screening for malignant neoplasm of breast (procedure) [code = 411869938] [facility] Future Scheduled Test 1972 00:00:00 CT Colonography (combo) [code = CT Colonography (combo)] [facility] Future Scheduled Test 1972 00:00:00 Screening for malignant neoplasm of colon (procedure) [code = 786416003] [facility] Future Scheduled Test 1972 00:00:00 Screening for malignant neoplasm of colon (procedure) [code = 591129501] [facility] Future Scheduled Test 1972 00:00:00 Screening for malignant neoplasm of colon (procedure) [code = 651209699] [facility] Future Scheduled Test 1972 00:00:00 Screening for malignant neoplasm of colon (procedure) [code = 984412839] [facility] Future Scheduled Test 1972 00:00:00 Sigmoidoscopy [code = Sigmoidoscopy] [facility] Future Scheduled Test 1972 00:00:00 Screening for malignant neoplasm of breast (procedure) [code = 153844110] [facility] Future Scheduled Test 1972 00:00:00 CT Colonography (combo) [code = CT Colonography (combo)] [facility] Future Scheduled Test 1972 00:00:00 Screening for malignant neoplasm of colon (procedure) [code = 226416912] [facility] Future Scheduled Test 1972 00:00:00 Screening for malignant neoplasm of colon (procedure) [code = 833129693] [facility] Future Scheduled Test 1972 00:00:00 Screening for malignant neoplasm of colon (procedure) [code = 454169617] [facility] Future Scheduled Test 1972 00:00:00 Screening for malignant neoplasm of colon (procedure) [code = 832760809] [facility] Future Scheduled Test 1972 00:00:00 Sigmoidoscopy [code = Sigmoidoscopy] [facility] Future Scheduled Test 1972 00:00:00 Screening for malignant neoplasm of breast (procedure) [code = 856321506] [facility] Future Scheduled Test 1972 00:00:00 CT Colonography (combo) [code = CT Colonography (combo)] [facility] Future Scheduled Test 1972 00:00:00 Screening for malignant neoplasm of colon (procedure) [code = 145659478] [facility] Future Scheduled Test 1972 00:00:00 Screening for malignant neoplasm of colon (procedure) [code = 437661131] [facility] Future Scheduled Test 1972 00:00:00 Screening for malignant neoplasm of colon (procedure) [code = 609886120] [facility] Future Scheduled Test 1972 00:00:00 Screening for malignant neoplasm of colon (procedure) [code = 161077656] [facility] Future Scheduled Test 1972 00:00:00 Sigmoidoscopy [code = Sigmoidoscopy] [facility] Future Scheduled Test 1972 00:00:00 Screening for malignant neoplasm of breast (procedure) [code = 854767684] [facility] Future Scheduled Test 1972 00:00:00 CT Colonography (combo) [code = CT Colonography (combo)] [facility] Future Scheduled Test 1972 00:00:00 Screening for malignant neoplasm of colon (procedure) [code = 921539200] [facility] Future Scheduled Test 1972 00:00:00 Screening for malignant neoplasm of colon (procedure) [code = 196944531] [facility] Future Scheduled Test 1972 00:00:00 Screening for malignant neoplasm of colon (procedure) [code = 038104919] [facility] Future Scheduled Test 1972 00:00:00 Screening for malignant neoplasm of colon (procedure) [code = 385938994] [facility] Future Scheduled Test 1972 00:00:00 Sigmoidoscopy [code = Sigmoidoscopy] [facility] Future Scheduled Test 1972 00:00:00 Screening for malignant neoplasm of breast (procedure) [code = 018603498] [facility] Future Scheduled Test 1972 00:00:00 CT Colonography (combo) [code = CT Colonography (combo)] [facility] Future Scheduled Test 1972 00:00:00 Screening for malignant neoplasm of colon (procedure) [code = 019301701] [facility] Future Scheduled Test 1972 00:00:00 Screening for malignant neoplasm of colon (procedure) [code = 829823299] [facility] Future Scheduled Test 1972 00:00:00 Screening for malignant neoplasm of colon (procedure) [code = 237468689] [facility] Future Scheduled Test 1972 00:00:00 Screening for malignant neoplasm of colon (procedure) [code = 412194005] [facility] Future Scheduled Test 1972 00:00:00 Sigmoidoscopy [code = Sigmoidoscopy] [facility] Future Scheduled Test 1972 00:00:00 Screening for malignant neoplasm of breast (procedure) [code = 628977821] [facility] Future Scheduled Test 1972 00:00:00 CT Colonography (combo) [code = CT Colonography (combo)] [facility] Future Scheduled Test 1972 00:00:00 Screening for malignant neoplasm of colon (procedure) [code = 209531802] [facility] Future Scheduled Test 1972 00:00:00 Screening for malignant neoplasm of colon (procedure) [code = 827721457] [facility] Future Scheduled Test 1972 00:00:00 Screening for malignant neoplasm of colon (procedure) [code = 165113034] [facility] Future Scheduled Test 1972 00:00:00 Screening for malignant neoplasm of colon (procedure) [code = 970608841] [facility] Future Scheduled Test 1972 00:00:00 Sigmoidoscopy [code = Sigmoidoscopy] [facility] Future Scheduled Test 1972 00:00:00 Screening for malignant neoplasm of breast (procedure) [code = 154155601] [facility] Future Scheduled Test 1972 00:00:00 CT Colonography (combo) [code = CT Colonography (combo)] [facility] Future Scheduled Test 1972 00:00:00 Screening for malignant neoplasm of colon (procedure) [code = 366454580] [facility] Future Scheduled Test 1972 00:00:00 Screening for malignant neoplasm of colon (procedure) [code = 036307253] [facility] Future Scheduled Test 1972 00:00:00 Screening for malignant neoplasm of colon (procedure) [code = 465843635] [facility] Future Scheduled Test 1972 00:00:00 Screening for malignant neoplasm of colon (procedure) [code = 497906248] [facility] Future Scheduled Test 1972 00:00:00 Sigmoidoscopy [code = Sigmoidoscopy] [facility] Future Scheduled Test 1972 00:00:00 Screening for malignant neoplasm of breast (procedure) [code = 661369967] [facility] Future Scheduled Test 1972 00:00:00 CT Colonography (combo) [code = CT Colonography (combo)] [facility] Future Scheduled Test 1972 00:00:00 Screening for malignant neoplasm of colon (procedure) [code = 960122171] [facility] Future Scheduled Test 1972 00:00:00 Screening for malignant neoplasm of colon (procedure) [code = 111596568] [facility] Future Scheduled Test 1972 00:00:00 Screening for malignant neoplasm of colon (procedure) [code = 088957325] [facility] Future Scheduled Test 1972 00:00:00 Screening for malignant neoplasm of colon (procedure) [code = 282209991] [facility] Future Scheduled Test 1972 00:00:00 Sigmoidoscopy [code = Sigmoidoscopy] [facility] Future Scheduled Test 1972 00:00:00 Screening for malignant neoplasm of breast (procedure) [code = 402050284] [facility] Future Scheduled Test 1972 00:00:00 CT Colonography (combo) [code = CT Colonography (combo)] [facility] Future Scheduled Test 1972 00:00:00 Screening for malignant neoplasm of colon (procedure) [code = 015481314] [facility] Future Scheduled Test 1972 00:00:00 Screening for malignant neoplasm of colon (procedure) [code = 899196549] [facility] Future Scheduled Test 1972 00:00:00 Screening for malignant neoplasm of colon (procedure) [code = 175546305] [facility] Future Scheduled Test 1972 00:00:00 Screening for malignant neoplasm of colon (procedure) [code = 944658088] [facility] Future Scheduled Test 1972 00:00:00 Sigmoidoscopy [code = Sigmoidoscopy] [facility] Future Scheduled Test 1972 00:00:00 Screening for malignant neoplasm of breast (procedure) [code = 105587029] [facility] Future Scheduled Test 1972 00:00:00 CT Colonography (combo) [code = CT Colonography (combo)] [facility] Future Scheduled Test 1972 00:00:00 Screening for malignant neoplasm of colon (procedure) [code = 462485571] [facility] Future Scheduled Test 1972 00:00:00 Screening for malignant neoplasm of colon (procedure) [code = 276358812] [facility] Future Scheduled Test 1972 00:00:00 Screening for malignant neoplasm of colon (procedure) [code = 427422511] [facility] Future Scheduled Test 1972 00:00:00 Screening for malignant neoplasm of colon (procedure) [code = 685262414] [facility] Future Scheduled Test 1972 00:00:00 Sigmoidoscopy [code = Sigmoidoscopy] [facility] Future Scheduled Test 1972 00:00:00 Screening for malignant neoplasm of breast (procedure) [code = 031162487] [facility] Future Scheduled Test 1972 00:00:00 CT Colonography (combo) [code = CT Colonography (combo)] [facility] Future Scheduled Test 1972 00:00:00 Screening for malignant neoplasm of colon (procedure) [code = 229175096] [facility] Future Scheduled Test 1972 00:00:00 Screening for malignant neoplasm of colon (procedure) [code = 691377043] [facility] Future Scheduled Test 1972 00:00:00 Screening for malignant neoplasm of colon (procedure) [code = 939389394] [facility] Future Scheduled Test 1972 00:00:00 Screening for malignant neoplasm of colon (procedure) [code = 408739880] [facility] Future Scheduled Test 1972 00:00:00 Sigmoidoscopy [code = Sigmoidoscopy] [facility] Future Scheduled Test 1972 00:00:00 Screening for malignant neoplasm of breast (procedure) [code = 397175686] [facility] Future Scheduled Test 1972 00:00:00 CT Colonography (combo) [code = CT Colonography (combo)] [facility] Future Scheduled Test 1972 00:00:00 Screening for malignant neoplasm of colon (procedure) [code = 353633500] [facility] Future Scheduled Test 1972 00:00:00 Screening for malignant neoplasm of colon (procedure) [code = 181884606] [facility] Future Scheduled Test 1972 00:00:00 Screening for malignant neoplasm of colon (procedure) [code = 345196459] [facility] Future Scheduled Test 1972 00:00:00 Screening for malignant neoplasm of colon (procedure) [code = 352315595] [facility] Future Scheduled Test 1972 00:00:00 Sigmoidoscopy [code = Sigmoidoscopy] [facility] Future Scheduled Test 1972 00:00:00 Screening for malignant neoplasm of breast (procedure) [code = 298913118] [facility] Future Scheduled Test 1972 00:00:00 CT Colonography (combo) [code = CT Colonography (combo)] [facility] Future Scheduled Test 1972 00:00:00 Screening for malignant neoplasm of colon (procedure) [code = 813933595] [facility] Future Scheduled Test 1972 00:00:00 Screening for malignant neoplasm of colon (procedure) [code = 521965184] [facility] Future Scheduled Test 1972 00:00:00 Screening for malignant neoplasm of colon (procedure) [code = 497150582] [facility] Future Scheduled Test 1972 00:00:00 Screening for malignant neoplasm of colon (procedure) [code = 642194314] [facility] Future Scheduled Test 1972 00:00:00 Sigmoidoscopy [code = Sigmoidoscopy] [facility] Future Scheduled Test 1972 00:00:00 Screening for malignant neoplasm of breast (procedure) [code = 903916688] [facility] Future Scheduled Test 1972 00:00:00 CT Colonography (combo) [code = CT Colonography (combo)] [facility] Future Scheduled Test 1972 00:00:00 Screening for malignant neoplasm of colon (procedure) [code = 096650025] [facility] Future Scheduled Test 1972 00:00:00 Screening for malignant neoplasm of colon (procedure) [code = 683408649] [facility] Future Scheduled Test 1972 00:00:00 Screening for malignant neoplasm of colon (procedure) [code = 316334032] [facility] Future Scheduled Test 1972 00:00:00 Screening for malignant neoplasm of colon (procedure) [code = 833573403] [facility] Future Scheduled Test 1972 00:00:00 Sigmoidoscopy [code = Sigmoidoscopy] [facility] Future Scheduled Test 1972 00:00:00 Screening for malignant neoplasm of breast (procedure) [code = 820922987] [facility] Future Scheduled Test 1972 00:00:00 CT Colonography (combo) [code = CT Colonography (combo)] [facility] Future Scheduled Test 1972 00:00:00 Screening for malignant neoplasm of colon (procedure) [code = 028947048] [facility] Future Scheduled Test 1972 00:00:00 Screening for malignant neoplasm of colon (procedure) [code = 647706146] [facility] Future Scheduled Test 1972 00:00:00 Screening for malignant neoplasm of colon (procedure) [code = 600971287] [facility] Future Scheduled Test 1972 00:00:00 Screening for malignant neoplasm of colon (procedure) [code = 534351734] [facility] Future Scheduled Test 1972 00:00:00 Sigmoidoscopy [code = Sigmoidoscopy] [facility] Goal Plan of Care Not e [code = 19527-9] Goal Plan of Care Not e [code = 49793-8] Goal Plan of Care Not e [code = 41927-8] Goal Plan of Care Not e [code = 46998-4] Goal Plan of Care Not e [code = 40182-9] Goal Plan of Care Not e [code = 35491-5] Goal Plan of Care Not e [code = 05449-2] Goal Plan of Care Not e [code = 19525-2] Goal Plan of Care Not e [code = 17497-5] Goal Plan of Care Not e [code = 63088-1] Goal Plan of Care Not e [code = 32844-6] Goal Plan of Care Not e [code = 17271-3] Goal Plan of Care Not e [code = 79192-8] Goal Plan of Care Not e [code = 43225-3] Goal Plan of Care Not e [code = 10974-5] Goal Plan of Care Not e [code = 76660-5] Goal Plan of Care Not e [code = 69547-3] Goal Plan of Care Not e [code = 69604-5] Goal Plan of Care Not e [code = 93692-6] Goal Plan of Care Not e [code = 41548-6] Goal Plan of Care Not e [code = 73401-3] Goal Plan of Care Not e [code = 74341-9] Goal Plan of Care Not e [code = 08290-7] Goal Plan of Care Not e [code = 36181-5] Goal Plan of Care Not e [code = 38732-4] Goal Plan of Care Not e [code = 41062-0] Goal Plan of Care Not e [code = 77979-8] Goal Plan of Care Not e [code = 01768-9] Goal Plan of Care Not e [code = 76900-4] Goal Plan of Care Not e [code = 49498-8] Goal Plan of Care Not e [code = 90909-3] Goal Plan of Care Not e [code = 52234-2] Goal Plan of Care Not e [code = 89991-9] Goal Plan of Care Not e [code = 90984-9] Goal Plan of Care Not e [code = 93226-2] Encounters Start Date/Time End Date/Time Encounter Type Admission Type Attending [facility] Care Department Encounter ID Source 2023-09-07 10:11:03 Inpatient PANKAJ PARRISH [facility] [id number] [facility] 2023-09-05 10:08:27 Inpatient PANKAJ PARRISH [facility] [id number] [facility] 2023-09-05 10:05:12 Inpatient PANKAJ PARRISH [facility] [id number] [facility] 2023-09-04 04:51:30 Inpatient PANKAJ PARRISH [facility] [id number] [facility] 2023-09-04 04:14:55 Inpatient PANKAJ PARRISH [facility] [id number] [facility] 2023-09-04 03:08:45 Inpatient PANKAJ PARRISH [facility] [id number] [facility] 2023-09-04 02:36:28 Inpatient PANKAJ PARRISH [facility] [id number] [facility] 2023-06-16 09:32:36 Inpatient AYDEE DICKENS [facility] [id number] [facility] 2023-06-16 09:32:09 Inpatient AYDEE DICKENS [facility] [id number] [facility] 2023-06-16 09:31:53 Inpatient AYDEE DICKENS [facility] [id number] [facility] 2023-06-14 07:46:02 Inpatient AYDEE DICKENS [facility] [id number] [facility] 2023-06-14 07:39:22 Inpatient NICOLETTE ARIREJI [facility] [id number] [facility] 2023-06-14 06:38:38 Inpatient AYDEE DICKENS [facility] [id number] [facility] 2023-06-13 13:44:18 Inpatient EL MARIANELA BURGESS [facility] [id number] [facility] 2023-06-13 11:45:24 Inpatient AYDEE DICKENS [facility] [id number] [facility] 2023-05-08 11:21:00 Outpatient EL ADAM GARCIA [facility] Surgery [id number] [facility] 2023-04-01 14:26:29 Inpatient ER THOMAS LOZOYA [facility] [id number] [facility] 2023-03-31 09:24:52 Inpatient ER MARIAH ALDRIDGE [facility] [id number] [facility] 2021-05-20 18:48:04 Emergency [facility] [id number] [facility] 2021-05-20 12:43:40 Emergency [facility] [id number] [facility] 2024-04-14 11:30:00 2024-04-14 11:30:00 Outpatient GUSTAVO DELANEY [id number] Cynthia Garcia 2024-04-02 20:43:00 2024-04-03 00:56:00 Emergency X CHRISSY MOHR [facility] [id number] [facility] 2024-04-02 20:43:00 2024-04-03 00:56:00 Emergency Chrissy Mohr [facility] [id number] 4.2.7.2.686 [id number] [facility] 2024-03-08 00:00:00 2024-03-08 00:00:00 Outpatient MD CYNTHIA MARLEY [id number] [facility] 2024-01-14 00:00:00 2024-02-20 18:26:15 Patient Secure Msg Doctor Unassigned, [place] [facility] 1.840.114 350.1.13.10 4.2.7.2.686 [id number] [facility] 2024-02-19 00:00:00 2024-02-19 00:00:00 Outpatient GUSTAVO DELANEY [id number] [facility] 2024-02-16 10:15:00 2024-02-16 10:15:00 Outpatient MORALES BALL [id number] [facility] 2024-01-13 00:00:00 2024-02-13 18:19:27 Patient Secure Msg Doctor Unassigned, [place] [facility] 1.0.114 350.1.13.10 4.2.7.2.686 [id number] [facility] 2024-01-12 22:04:00 2024-01-13 00:00:00 Emergency X VASUT, RADHA VASUT, RADHA [facility] ERT [id number] [facility] 2024-01-12 22:04:00 2024-01-13 00:00:00 Emergency Vasut, Radha J [facility] 1..114 350.1.13.10 4.2.7.2.686 [id number] [facility] 2024-01-12 00:00:00 2024-01-12 16:22:23 Transition of Care Veronique Carrillo 1.0.114 350.1.13.10 4.2.7.2.686 [id number] [facility] 2024-01-09 16:11:00 2024-01-10 15:56:00 Outpatient X DARRICK ALTAMIRANO [facility] [id number] [facility] 2024-01-09 16:11:00 2024-01-10 15:56:00 Hospital Encounter Olena Del Castillo K Paige Khan, Mohammad A. [facility] 1.2.840.114 350.1.13.10 4.2.7.2.686 [id number] [facility] 2023-12-17 00:00:00 2023-12-17 00:00:00 Transition of Care Jodi Berg 1.2.840.114 350.1.13.10 4.2.7.2.686 [id number] [facility] 2023-12-14 13:34:00 2023-12-15 11:08:00 Outpatient X TAL BENAVIDEZ [facility] [id number] [facility] 2023-12-14 13:34:00 2023-12-15 11:08:00 Emergency Mj Bryan [facility] 1.2.840.114 350.1.13.10 4.2.7.2.686 [id number] [facility] 2023-12-07 00:00:00 2023-12-07 00:00:00 Outpatient GUSTAVO DELANEY [id number] Cynthia Garcia 2023-12-02 13:05:00 2023-12-03 19:00:00 Outpatient X MOJGAN SIMENTAL [facility] [id number] [facility] 2023-12-02 13:05:00 2023-12-03 19:00:00 Hospital Encounter Connor Renee Wissam [facility] 1.2.840.114 350.1.13.10 4.2.7.2.686 [id number] [facility] 2023-12-01 00:00:00 2023-12-01 10:40:26 Transition of Care Madeline Mckinley 1.2.840.114 350.1.13.10 4.2.7.2.686 [id number] [facility] 2023-11-30 00:00:00 2023-11-30 10:41:56 Transition of Care Madeline Mckinley 1.2.840.114 350.1.13.10 4.2.7.2.686 [id number] [facility] 2023-11-21 21:12:00 2023-11-28 16:01:00 Inpatient MADELINE WILDER [facility] [id number] [facility] 2023-11-21 21:12:00 2023-11-28 16:01:00 Hospital Encounter Madeline Pierre Donnell Khan, Cr Mcdermott, Ryder Davis [facility] 1.2.840.114 350.1.13.10 4.2.7.2.686 [id number] [facility] 2023-11-26 14:15:00 2023-11-26 14:15:00 Outpatient AARON LEDESMA [id number] Cynthia Garcia 2023-11-23 13:45:00 2023-11-23 14:45:00 Surgery Cris Molina [facility] 1.2.840.114 350.1.13.10 4.2.7.2.686 [id number] [facility] 2023-11-18 00:00:00 2023-11-18 00:00:00 Outpatient EFRA BABCOCK CYNTHIA MTZ [id number] [facility] 2023-11-15 00:00:00 2023-11-15 00:00:00 Outpatient CYNTHIA MTZ [id number] [facility] 2023-11-15 00:00:00 2023-11-15 00:00:00 Outpatient CYNTHIA MTZ [id number] [facility] 2023-11-15 00:00:00 2023-11-15 00:00:00 Outpatient CYNTHIA MTZ [id number] [facility] 2023-11-12 15:15:00 2023-11-12 15:15:00 [id number] [facility]12 00:00:00 2023-11-12 00:00:00 Outpatient CYNTHIA MTZ [id number] [facility] 2023-11-10 09:30:00 2023-11-10 09:30:00 Outpatient MYLA LIEBERMAN [id number] [facility] 2023-11-09 00:00:00 2023-11-09 00:00:00 Outpatient GUSTAVO DELANEY [id number] [facility] 2023-11-09 00:00:00 2023-11-09 00:00:00 Outpatient MYLA LIEBERMAN [id number] [facility] 2023-11-07 17:51:00 2023-11-07 22:04:00 Emergency ER JUANY [facility] [id number] [facility] 2023-11-07 17:51:00 2023-11-07 22:04:00 emergency [facility] [id number] 2023-11-05 00:00:00 2023-11-05 00:00:00 Outpatient TIFFANY PUENTE [id number] [facility] 2023-11-03 00:00:00 2023-11-03 00:00:00 Outpatient CYNTHIA MTZ [id number] [facility] 2023-10-29 00:00:00 2023-10-29 00:00:00 Outpatient MARYURICHRISTIANGUSTAVO Alexander CYNTHIA MTZ [id number] [facility] 2023-10-26 00:00:00 2023-10-26 00:00:00 Outpatient YOKO EFRA CYNTHIA MTZ [id number] [facility] 2023-10-22 00:00:00 2023-10-22 00:00:00 Outpatient MARYURICHRISTIANGUSTAVO Alexander CYNTHIA MTZ [id number] [facility] 2023-10-16 11:10:00 2023-10-16 11:10:00 Outpatient SIDDHARTH STANFORD [id number] [facility] 2023-10-15 00:00:00 2023-10-15 00:00:00 Outpatient MD CYNTHIA MARLEY [id number] [facility] 2023-10-15 00:00:00 2023-10-15 00:00:00 Outpatient MARGOT GUILLEN CYNTHIA MTZ [id number] [facility] 2023-10-15 00:00:00 2023-10-15 00:00:00 Outpatient MARGOT GUILLEN CYNTHIA MTZ [id number] [facility] 2023-10-06 10:45:00 2023-10-06 10:45:00 Outpatient SARAI JULES [id number] [facility] 2023-10-05 11:30:00 2023-10-05 11:30:00 Outpatient GUSTAVO DELANEY CYNTHIA MTZ [id number] [facility] 2023-10-01 00:00:00 2023-10-01 00:00:00 Outpatient MARYURIKAY GUSTAVO MTZ [id number] Cynthia [facility] 2023-09-30 14:15:00 2023-09-30 14:15:00 Outpatient PREZAGUSTAVO Alexander [id number] [facility] 2023-09-24 00:00:00 2023-09-24 00:00:00 Outpatient PREZAS, GUSTAVO CYNTHIA CYNTHIA [id number] [facility] 2023-09-23 00:00:00 2023-09-23 00:00:00 Outpatient TIFFANY PUENTE CYNTHIA CYNTHIA [id number] Cynthia [facility] 2023-09-22 00:00:00 2023-09-22 00:00:00 Outpatient GUSTAVO DELANEY CYNTHIA [id number] [facility] 2023-09-22 00:00:00 2023-09-22 00:00:00 Outpatient MARGOT GUILLEN CYNTHIA [id number] [facility] 2023-09-16 00:00:00 2023-09-16 00:00:00 Outpatient PREZAGUSTAVO Alexander CYNTHIA CYNTHIA [id number] Cynthia [facility] 2023-09-16 00:00:00 2023-09-16 00:00:00 Outpatient PREZAGUSTAVO Alexander CYNTHIA [id number] [facility] 2023-09-16 00:00:00 2023-09-16 00:00:00 Outpatient PREZABenjamin, GUSTAVO MTZ CYNTHIA [id number] Cynthia [facility] 2023-09-14 00:00:00 2023-09-14 00:00:00 Outpatient MARGOT GUILLEN CYNTHIA CYNTHIA [id number] Cynthia [facility] 2023-09-14 00:00:00 2023-09-14 00:00:00 Outpatient MARGOT GUILLEN CYNTHIA CYNTHIA [id number] Cynthia [facility] 2023-09-11 11:00:00 2023-09-11 11:00:00 Outpatient BJ YONATAN CYNTHIA MTZ [id number] Cynthia [facility] 2023-09-09 00:00:00 2023-09-09 00:00:00 Outpatient CYNTHIA MTZ [id number] Cynthia [facility] 2023-09-04 00:14:00 2023-09-08 10:51:00 Inpatient EDWARD MENDOZA [facility] Neurosurger y [id number] [facility] 2023-09-04 00:14:00 2023-09-08 [facility] Edward Sosa [facility] [id number] [facility] 2023-09-04 00:14:00 2023-09-08 10:51:00 Hospital Encounter ER NirLondon, Pankaj Altamirano, Edward Sosa [facility] [id number] [facility] 2023-09-07 18:41:43 2023-09-07 18:41:43 Outpatient EDWARD MANE [facility] [id number] [facility] 2023-09-03 20:52:00 2023-09-03 23:44:00 Emergency ER TACOSACHIMAYEJUANY [facility] [id number] [facility] 2023-09-03 20:52:00 2023-09-03 23:44:00 emergency [facility] [id number] 2023-09-02 00:00:00 2023-09-02 00:00:00 Outpatient TIFFANY PUENTE [id number] [facility] 2023-09-01 15:30:00 2023-09-01 15:30:00 Outpatient DEMETRIUS TOBAR [id number] [facility] 2023-08-19 00:00:00 2023-08-19 00:00:00 Outpatient QUIN CALVILLO [facility] [id number] [facility] 2023-08-13 00:00:00 2023-08-13 13:44:39 Orders Only МаринаmarshaChadstalin Stewart [facility] [id number] [facility] 2023-08-13 00:00:00 2023-08-13 00:00:00 Orders Only МаринаmarshaChadstalin Stewart [facility] [id number] [facility] 2023-08-12 13:49:00 2023-08-12 16:12:00 Emergency MJ MONTIEL [facility] [id number] [facility] 2023-08-12 13:49:00 2023-08-12 16:12:00 Emergency Mj Bryan [facility] 1.2.840.114 350.1.13.10 4.2.7.2.686 [id number] [facility] 2023-06-15 00:00:00 2023-06-18 10:20:39 Orders Only Provider, Not In System [facility] [id number] [facility] 2023-06-13 03:43:00 2023-06-16 19:45:00 Inpatient ER AYDEE GO [facility] Internal Med [id number] [facility] 2023-06-13 03:43:00 2023-06-16 19:45:00 Hospital Encounter Marianela Burgess Sahar [facility] [id number] [facility] 2023-06-13 03:43:00 2023-06-16 19:45:00 Hospital Encounter ER Marianela Burgess Sahar [facility] [id number] [facility] 2023-06-15 00:00:00 2023-06-15 00:00:00 Orders Only Provider, Not In System [facility] [id number] [facility] 2023-06-13 16:30:06 2023-06-13 16:30:[address] [facility] [id number] [facility] 2023-06-13 00:00:00 2023-06-13 00:00:00 Orders Only [facility] [id number] [facility] 2023-06-13 00:00:00 2023-06-13 00:00:[address] [facility] [id number] [facility] 2023-06-12 00:00:00 2023-06-12 00:00:00 Telephone Dallas Gomez [facility] [id number] [facility] 2023-05-28 06:45:00 2023-06-04 17:36:00 Inpatient ADAM BRANTLEY [facility] Surgery [id number] [facility] 2023-05-28 06:45:00 2023-06-04 17:36:00 Hospital Encounter Adam Brantley [facility] [id number] [facility] 2023-06-01 09:10:00 2023-06-01 13:00:00 Anesthesia Event Harry Newsome Antwon [facility] [id number] [facility] 2023-06-01 09:00:00 2023-06-01 11:30:00 Surgery Adam Garcia [facility] [id number] [facility] 2023-06-01 09:47:57 2023-06-01 09:47:57 Out[facility] [id number] [facility] 2023-06-01 09:40:34 2023-06-01 09:40:34 Outpatient ADAM BRANTLEY [facility] [id number] [facility] 2023-05-31 09:25:55 2023-05-31 23:59:00 Inpatient ADAM BRANTLEY [facility] [id number] [facility] 2023-05-31 09:00:00 2023-05-31 23:59:00 Hospital Encounter Adam Garcia [facility] [id number] [facility] 2023-05-28 18:15:29 2023-05-28 18:15:29 Outpatient [facility] [id number] [facility] 2023-05-28 08:30:00 2023-05-28 11:54:00 Anesthesia Event Yue Bui [facility] [id number] [facility] 2023-05-28 11:41:14 2023-05-28 11:41:14 Outpatient ADAM BRANTLEY [facility] [id number] [facility] 2023-05-28 08:30:00 2023-05-28 11:00:00 Surgery Adam Garcia [facility] [id number] [facility] 2023-05-28 10:00:47 2023-05-28 10:00:47 Outpatient EL ADAM GARCIA [facility] [id number] [facility] 2023-05-28 00:00:00 2023-05-28 00:00:[address] [facility] [id number] [facility] 2023-05-26 09:00:00 2023-05-26 09:00:00 Hospital Encounter Adam Garcia [facility] [id number] [facility] 2023-05-26 00:00:00 2023-05-26 00:00:00 Outpatient EL ADAM GARCIA [facility] [id number] [facility] 2023-05-26 00:00:00 2023-05-26 00:00:00 Outpatient NICOLETTE [facility] [id number] [facility] 2023-05-26 00:00:00 2023-05-26 00:00:[address] [facility] [id number] [facility] 2023-05-13 11:43:03 2023-05-13 11:43:[address] [facility] [id number] Adria Martínez 2023-05-12 00:00:00 2023-05-12 00:00:00 Orders Only Adam Garcia [facility] [id number] [facility] 2023-05-08 14:11:21 2023-05-08 14:11:[address] [facility] [id number] Adria Martínez 2023-03-29 19:25:00 2023-04-02 20:48:00 Inpatient ER THOMAS LOZOYA [facility] Neurology [id number] [facility] 2023-03-29 19:25:00 2023-04-02 20:48:00 Hospital Encounter ER Connie Davey Shireen Kulkarni, Mrinalini Z [facility] [id number] [facility] 2023-03-31 08:32:56 2023-03-31 00:00:00 [facility] [id number] [facility] 2023-03-30 10:24:12 2023-03-30 23:59:00 Outpatient ER CONNIE DAVEY [facility] [id number] [facility] 2023-03-30 09:40:00 2023-03-30 23:59:00 Hospital Encounter Connie Davey [facility] [id number] [facility] 2023-03-30 13:46:20 2023-03-30 13:46:20 Outpatient ER MARIAH ALDRIDGE [facility] [id number] [facility] 2023-03-30 13:46:14 2023-03-30 13:46:14 Outpatient ER MARIAH ALDRIDGE [facility] [id number] [facility] 2023-03-30 10:24:04 2023-03-30 10:24:04 Outpatient ER CONNIE DAVEY [facility] [id number] [facility] 2023-03-30 00:00:00 2023-03-30 00:00:00 Orders Only [facility] [id number] [facility] 2023-03-30 00:00:00 2023-03-30 00:00:[address] [facility] [id number] [facility] 2022-12-11 08:56:00 2022-12-11 15:29:00 Emergency X Alfonso ALVARADO [facility] ERT [id number] [facility] 2022-12-11 08:56:00 2022-12-11 15:29:00 Emergency Alfonso Alvarado [facility] 1.2.840.114 350.1.13.10 4.2.7.2.686 [id number] [facility] 2022-11-17 17:25:00 2022-11-18 01:19:00 Emergency X RITCHIE WARREN [facility] ERT [id number] [facility] 2022-11-17 17:25:00 2022-11-18 01:19:00 Emergency Ritchie Warren [facility] 1.2.840.114 350.1.13.10 4.2.7.2.686 [id number] [facility] 2022-08-28 00:00:00 2022-08-28 00:00:00 Patient Outreach Margot Beckman 1.2.840.114 350.1.13.10 4.2.7.2.686 [id number] [facility] 2022-08-20 00:00:00 2022-08-20 00:00:00 Patient Outreach Margot Beckman 1.2.840.114 350.1.13.10 4.2.7.2.686 [id number] [facility] 2022-08-02 17:30:00 2022-08-03 14:29:00 Outpatient ER PARRISH WHEATLEY [facility] Neurology [id number] [facility] 2022-08-02 17:30:00 2022-08-03 14:29:00 Hospital Encounter ER Halima Mendoza Kinjal M Ibe, Chimkama Ngozi Cynthia [facility] [id number] [facility] 2022-08-03 00:00:00 2022-08-03 00:00:00 Orders Only [facility] [id number] [facility] 2022-08-02 00:00:00 2022-08-02 00:00:[address] [facility] [id number] [facility] 2022-07-31 11:42:00 2022-08-01 21:48:00 Inpatient X DAMI LOWRY [facility] SHEA [id number] [facility] 2022-07-31 11:42:00 2022-08-01 21:48:00 Hospital Encounter Megan Rondon Yaman [facility] 1.2840.114 350.1.13.10 4.2.7.2.686 [id number] [facility] 2022-08-01 00:00:00 2022-08-01 00:00:00 Transition of Care Maria Teresa Nicole 1..840.114 350.1.13.10 4.2.7.2.686 [id number] [facility] 2022-07-28 14:41:38 2022-07-28 14:41:[address] [facility] 9 Adria Martínez 2022-07-28 00:00:00 2022-07-28 00:00:00 Outpatient Visit [id number] 2022-07-24 13:24:40 2022-07-24 13:24:40 Outpatient [facility] [id number] Adria Martínez 2022-05-23 14:51:01 2022-05-23 14:51:01 Outpatient [facility] [id number] Adria Martínez 2022-05-23 00:00:00 2022-05-23 00:00:00 Outpatient Visit [id number] 2022-05-04 20:22:00 2022-05-08 14:44:00 Outpatient X CHANTEL BOJORQUEZ [facility] [id number] [facility] 2022-05-04 20:22:00 2022-05-08 14:44:00 Emergency Brandyn Ibrahim Pablo [facility] 1..840.114 350.1.13.10 4.2.7.2.686 [id number] [facility] 2022-04-13 13:06:00 2022-04-15 15:00:00 Inpatient X CONRAD SELINA [facility] BERNARDINO [id number] [facility] 2022-04-13 13:06:00 2022-04-15 15:00:00 Hospital Encounter Sapna Vargas Muhammad Zeeshan Chhabra, [facility] 1.840.114 350.1.13.10 4.2.7.2.686 [id number] [facility] 2022-02-19 10:20:00 2022-02-19 10:30:00 Imm/Inj Visit Vaccine, [place] Jose Santiago [facility] 1.840.114 350.1.13.10 4.2.7.2.686 [id number] [facility] 2022-02-19 10:20:00 2022-02-19 10:20:00 Outpatient JOSE MENDOZA [facility] [id number] [facility] 2021-11-23 15:07:00 2021-11-23 17:03:00 Emergency X WILLIAMS VIRK [facility] ERT [id number] [facility] 2021-11-23 15:07:00 2021-11-23 17:03:00 Emergency Alcon MeganWilliams Lovett [facility] 1..840.114 350.1.13.10 4.2.7.2.686 [id number] [facility] 2021-11-21 09:40:00 2021-11-21 09:40:00 Outpatient R [facility] [id number] [facility] 2021-05-24 09:30:00 2021-05-24 09:30:00 Outpatient JOSE MENDOZA [facility] [id number] [facility] 2021-05-24 08:47:51 2021-05-24 08:57:51 Imm/Inj Visit Vaccine, [place] Pedi Otoniel, [facility] 1.2.840.114 350.1.13.10 4.2.7.2.686 [id number] [facility] 2021-05-03 09:40:00 2021-05-03 09:59:35 Outpatient R JOSE PAK [facility] [id number] [facility] 2021-05-03 09:17:43 2021-05-03 09:59:35 Imm/Inj Visit [facility] PedJose Lyle [facility] 1.840.114 350.1.13.10 4.2.7.2.686 [id number] [facility] 2021-04-16 00:00:00 2021-04-16 00:00:00 Orders Only Doctor Unassigned, [place] [facility] 1.2.840.114 350.1.13.10 4.2.7.2.686 [id number] [facility] 2021-03-17 00:00:00 2021-03-17 00:00:00 Telephone Miky Nava [facility] 1.2840.114 350.1.13.10 4.2.7.2.686 [id number] [facility] 2021-03-16 20:08:00 2021-03-16 23:24:00 Emergency Fabrice Chakraborty [facility] 1.2840.114 350.1.13.10 4.2.7.2.686 [id number] [facility] 2021-03-14 18:59:34 2021-03-14 20:19:13 Urgent Care Lydia Desouza Unknown, Attending [facility] 1.2840.114 350.1.13.10 4.2.7.2.686 [id number] [facility] 2021-03-14 19:00:00 2021-03-14 19:00:00 Outpatient R UNKNOWN, ATTENDING [facility] [id number] [facility] 2021-02-19 10:49:00 2021-02-19 14:48:00 Emergency Estefania Monroy [facility] 1.2.840.114 350.1.13.10 4.2.7.2.686 [id number] [facility] 2019-03-09 00:00:00 2019-03-09 00:00:00 Yehuda Zimmerman [facility] 1.2.840.114 350.1.13.10 4.2.7.2.686 [id number] [facility] 2019-03-09 00:00:00 2019-03-09 00:00:00 Yehuda Zimmerman [facility] 1.2.840.114 350.1.13.10 4.2.7.2.686 [id number] Results Test Description Test Time Test Comments Results Result Co mments Source [facility] (NA, K, CL, CO2, GLUCOSE, BUN, CREATININE, CA)2024-04-03 02:26:01* Test Item Value Reference Range Interpretation Comme nts NA (test code = 5671628046) 136 mmol/L 135-145 K (test code = 6000140943) 3.2 mmol/L 3.5-5.0 L CL (test code = 5513078667) 101 mmol/L 98-108 CO2 TOTAL (test code = 8732236677) 23 mmol/L 23-31 AGAP (test code = 8593956521) 12 2-16 BUN (test code = 3878985989) 4 mg/dL 7-23 L GLUCOSE (test code = 1858994139) 165 mg/dL 70-110 H CREATININE (test code = 2160-0) 0.67 mg/dL 0.50-1.04 CALCIUM (test code = 4563597245) 8.5 mg/dL 8.6-10.6 L eGFR (test code = 80094-8) 105.3 mL/min/1.73m2 CKD-EPI eGFR (2020). Assuming creatinine has been stable day-to-day for at least three months, the eGFR indicates Category G1 (>= 90 mL/min/1.73 m2) Lab Interpretation (test code = 48298-3) Abnormal [facility] with [id number] 02:19:04* Test Item Value Reference Range Interpretation [...] g/dL 31.6-35.1 L RDW-SD (test code = 29965-1) 53.9 fL 39.0-49.9 H RDW-CV (test code = 788-0) 18.2 % 12.0-15.5 H PLT (test code = 777-3) 458 166-358 H MPV (test code = 61076-2) 8.6 fL 9.5-12.9 L NRBC/100 WBC (test code = 1669868088) 0.0 0.0-10.0 NRBC x10^3 (test code = 4071635102) See_Comment [Automated [employer]] The system which generated this result transmitted reference range: 10*3/?L. The reference range was not used to interpret this result as normal/abnormal. GRAN MAT (NEUT) % (test code = 770-8) 62.8 % IMM GRAN % (test code = 9768281710) 0.40 % LYMPH % (test code = 736-9) 28.0 % MONO % (test code = 5905-5) 6.5 % EOS % (test code = 713-8) 1.3 % BASO % (test code = 706-2) 1.0 % GRAN MAT x10^3(ANC) (test code = 9603012445) 4.36 10*3/uL 1.88-7.09 IMM GRAN x10^3 (test code = 4828951067) 0.03 10*3/uL 0.00-0.06 LYMPH x10^3 (test code = 731-0) 1.94 10*3/uL 1.32-3.29 MONO x10^3 (test code = 742-7) 0.45 10*3/uL 0.33-0.92 EOS x10^3 (test code = 711-2) 0.09 10*3/uL 0.03-0.39 BASO x10^3 (test code = 704-7) 0.07 10*3/uL 0.01-0.07 Lab Interpretation (test code = 20573-8) [facility]uda[facility] Whole [id number] 02:05:20* Test Item Value Reference Range Interpretation Comme nts LACTIC ACID (test code = 6095458291) 2.61 mmol/L 0.50-2.20 H Lab Interpretation (test cod e = 85822-1) [facility]normal [facility] BudaTroponin [id number] 04:25:23* Test Item Value Reference Range Interpretation Comme nts TROPONIN I (test code = 8785060686) 0.004 ng/mL <=0.034 LYNDSAY (test code = [...] of biotin. Lab Interpretation (test code = 61032-2) Normal [facility]. Metabolic Panel (39328)2024-01-13 04:13:41* Test Item Value Reference Range Interpretation Comme nts NA (test code = 8922400165) 140 mmol/L 135-145 K (test code = 9506927540) 3.7 mmol/L 3.5-5.0 CL (test code = 0996186499) 103 mmol/L 98-108 CO2 TOTAL (test code = 4880902818) 25 mmol/L 23-31 AGAP (test code = 9695933236) 12 2-16 BUN (test code = 3808007956) 12 mg/dL 7-23 GLUCOSE (test code = 8500556818) 143 mg/dL 70-110 H CREATININE (test code = 2160-0) 0.91 mg/dL 0.50-1.04 TOTAL BILI (test code = 0329185599) 0.4 mg/dL 0.1-1.1 CALCIUM (test code = 8299101224) 9.0 mg/dL 8.6-10.6 T PROTEIN (test code = 0164721247) 7.7 g/dL 6.3-8.2 ALBUMIN (test code = 2653908655) 4.2 g/dL 3.5-5.0 ALK PHOS (test code = 8472253273) 93 U/L 34-122 ALTv (test code = 1742-6) 9 U/L 5-35 AST(SGOT) (test code = 5329104989) 18 U/L 13-40 eGFR (test code = 09472-3) 76.5 mL/min/1.73m2 CKD-EPI eGFR (2020). Assuming creatinine has been stable day-to-day for at least three months, the eGFR indicates Category G2 (60 - 89 mL/min/1.73 m2) Lab Interpretation (test code = 66702-7) Abnormal [facility] with Lszv6000-00-08 03:58:19* Test Item Value Reference Range Interpretation [...] g/dL 31.6-35.1 L RDW-SD (test code = 34608-0) 59.0 fL 39.0-49.9 H RDW-CV (test code = 788-0) 18.7 % 12.0-15.5 H PLT (test code = 777-3) 394 166-358 H MPV (test code = 95368-0) 8.5 fL 9.5-12.9 L NRBC/100 WBC (test code = 9316367909) 0.0 0.0-10.0 NRBC x10^3 (test code = 7295530344) See_Comment [Automated messa ge] The system which generated this result transmitted reference range: 10*3/?L. The reference range was not used to interpret this result as normal/abnormal. GRAN MAT (NEUT) % (test code = 770-8) 60.6 % IMM GRAN % (test code = 4969166168) 1.40 % LYMPH % (test code = 736-9) 26.9 % MONO % (test code = 5905-5) 8.7 % EOS % (test code = 713-8) 1.8 % BASO % (test code = 706-2) 0.6 % GRAN MAT x10^3(ANC) (test code = 4689007627) 5.14 10*3/uL 1.88-7.09 IMM GRAN x10^3 (test code = 1834159857) 0.12 10*3/uL 0.00-0.06 H LYMPH x10^3 (test code = 731-0) 2.28 10*3/uL 1.32-3.29 MONO x10^3 (test code = 742-7) 0.74 10*3/uL 0.33-0.92 EOS x10^3 (test code = 711-2) 0.15 10*3/uL 0.03-0.39 BASO x10^3 (test code = 704-7) 0.05 10*3/uL 0.01-0.07 Lab Interpretation (test code = 96219-8) [facility]normal [facility]udaTransthoracic echo (TTE)2024-01-10 16:40:03* Test Item Value Reference Range Interpretation Comme nts Height (test code = 3934700799) 62 in Weight (test code = 9354134999) 200 lbs Systolic BP (test code = 2345681244) 90 mmHg Diastolic BP (test code = 1583934248) 66 mmHg Heart Rate (test code = 2931235970) 69 bpm BSA (test code = 3558845556) 1.91 m2 LVOT diameter (test code = 5647786868) 2.13 cm LVOT area (test code = 9659951565) 3.60 cm2 LA size (test code = 8075628760) 3.5 cm LAV(MOD-sp4) (test code = 5350629460) 55.70 mL E wave decelartion time (test code = 4973851592) 0.12 s MV stenosis pressure 1/2 time (test code = 9338082720) 35.0 ms MV Peak A Evette (test code = 2708901147) 117.0 cm/s MV Peak E Evette (test code = 6439198321) 94.3 cm/s E/A ratio (test code = 4916884584) 0.81 ratio MV E/e' septal (test code = 5248116754) 10.2 cm/s LVOT stroke volume (test code = 9337791060) 59.50 cm3 LVOT peak evette (test code = 2912825872) 99.8 cm/s LVOT mn grad (test code = 6395803736) 1.9 mmHg AV LVOT peak gradient (test code = 2501078258) 4.0 mmHg LVOT peak VTI (test code = 7595752594) 16.7 cm LV V1 mean (test code = 1272567643) 64.40 cm/s Aortic valve mean velocity (test code = 0736424230) 155.3 cm/s Ao peak evette (test code = 8410807140) 222.6 cm/s Ao VTI (test code = 3724922078) 33.6 cm AV area by cont VTI (test code = 5605509680) 1.8 cm2 AV area peak evette (test code = 4585820791) 1.6 cm2 Ao max PG (test code = 4824546558) 19.80 mm[Hg] AV peak gradient (test code = 1208556077) 19.8 mmHg AV valve area (test code = 9527545069) 1.77 cm2 AV mean gradient (test code = 8283910543) 10.6 mmHg AV regurgitation pressure 1/2 time (test code = 3259061236) 651.6 ms AI dec slope (test code = 3157576434) 180.60 cm/s2 AI max evette (test code = 1283635539) 401.80 cm/s AI max PG (test code = 3973757682) 64.60 mm[Hg] LVIDD (test code = 3104233503) 4.90 cm Left Ventricular End Diastolic Volume by Teichholz Method (test code = 7082506) 114.6 mL IVS (test code = 1686278545) 1.17 cm Interventricular Septum Diastolic Thickness by 2D (test code = 0022614) 1.17 cm LVPWD (test code = 1049509653) 1.17 cm PW (test code = 8938200415) 1.17 cm 0.6-1.1 EF(Teich) (test code = 7680076308) 20.70 % LVIDS (test code = 5602894320) 4.50 cm Left Ventricular End Systolic Volume by Teichholz Method (test code = 9847704) 90.9 mL FS (test code = 5484287081) 9 % EF - 2D (test code = 09308424) 20.70 % Radiology Study observation (narrative) (test code = 03874-3) LYNDSAY (test code = LYNDSAY) ?Left?Ventricle: Left [...] [facility]uda[facility] Xacrk6319-66-77 02:02:28* Test Item Value Reference Range Interpretation Comme nts LACTIC ACID (test code = 7269572489) 1.36 mmol/L 0.50-2.20 Lab Interpretation (test cod e = 55594-9) Normal [facility]udaCT CHE[facility] PULMONARY [id number] 01:16:45CTA CHEST WITH IV CONTRAST ORDERING PHYSICIAN: [...] spine.[facility] BudaXR CHEST 1 [id number] 23:07:58Exam: Chest (1 View), 01/09/2024 4:15 PM. [...] seen.[facility] BudaTROPONIN [id number] 22:51:19* Test Item Value Reference Range Interpretation Comme nts TROPONIN I (test code = 8754878807) 0.006 ng/mL <=0.034 LYNDSAY (test code = [...] of biotin. Lab Interpretation (test code = 13664-3) Normal [facility] BudaN-TERMINAL HDH-[id number] 22:48:38* Test Item Value Reference Range Interpretation Comme nts NT-proBNP (test code = 10920-7) 877 pg/mL <=125 LYNDSAY (test code = LYNDSAY) Result Indeterminate-Consid er causes of NT-proBNP elevation other than Heart failure such as acute coronary syndrome, pulmonary embolism, pulmonary hypertension, sepsis, stroke, and renal dysfunction. Lab Interpretation (test code = 20421-0) Abnormal [facility]. METABOLIC PANEL (07559)2024-01-09 22:42:20* Test Item Value Reference Range Interpretation Comme nts NA (test code = 0281281236) 137 mmol/L 135-145 K (test code = 2809694874) 3.8 mmol/L 3.5-5.0 CL (test code = 9027261829) 104 mmol/L 98-108 CO2 TOTAL (test code = 0219834819) 25 mmol/L 23-31 AGAP (test code = 2793557999) 8 2-16 BUN (test code = 7552815510) 7 mg/dL 7-23 GLUCOSE (test code = 6080766339) 96 mg/dL 70-110 CREATININE (test code = 2160-0) 0.60 mg/dL 0.50-1.04 TOTAL BILI (test code = 1140790311) 0.4 mg/dL 0.1-1.1 CALCIUM (test code = 0031208367) 8.7 mg/dL 8.6-10.6 T PROTEIN (test code = 6754735694) 7.0 g/dL 6.3-8.2 ALBUMIN (test code = 9599879981) 3.9 g/dL 3.5-5.0 ALK PHOS (test code = 5177710652) 101 U/L 34-122 ALTv (test code = 1742-6) 7 U/L 5-35 AST(SGOT) (test code = 3843470279) 20 U/L 13-40 eGFR (test code = 54616-8) 108.8 mL/min/1.73m2 CKD-EPI eGFR (20 21). Assuming creatinine has been stable day-to-day for at least three months, the eGFR indicates Category G1 (>= 90 mL/min/1.73 m2) [facility] BudaD-MLLZD2019-05-06 22:28:57* Test Item Value Reference Range Interpretation Comments D-DIMER (test code = 0346986483) 0.87 See_Comment H [Automated message] The system [...] a diagnosis. Lab Interpretation (test code = 86057-7) Abnormal [facility] WITH [id number] 22:09:01* Test Item Value Reference Range Interpretation [...] g/dL 31.6-35.1 L RDW-SD (test code = 52773-5) 58.1 fL 39.0-49.9 H RDW-CV (test code = 788-0) 18.6 % 12.0-15.5 H PLT (test code = 777-3) 312 166-358 MPV (test code = 65844-2) 8.3 fL 9.5-12.9 L NRBC/100 WBC (test code = 2798237392) 0.0 0.0-10.0 NRBC x10^3 (test code = 4858206389) See_Comment [Automated Ambassadora ge] The system which generated this result transmitted reference range: 10*3/?L. The reference range was not used to interpret this result as normal/abnormal. GRAN MAT (NEUT) % (test code = 770-8) 60.1 % IMM GRAN % (test code = 7408335223) 0.70 % LYMPH % (test code = 736-9) 27.3 % MONO % (test code = 5905-5) 10.1 % EOS % (test code = 713-8) 1.2 % BASO % (test code = 706-2) 0.6 % GRAN MAT x10^3(ANC) (test code = 5453024614) 5.12 10*3/uL 1.88-7.09 IMM GRAN x10^3 (test code = 5915215802) 0.06 10*3/uL 0.00-0.06 LYMPH x10^3 (test code = 731-0) 2.33 10*3/uL 1.32-3.29 MONO x10^3 (test code = 742-7) 0.86 10*3/uL 0.33-0.92 EOS x10^3 (test code = 711-2) 0.10 10*3/uL 0.03-0.39 BASO x10^3 (test code = 704-7) 0.05 10*3/uL 0.01-0.07 Lab Interpretation (test code = 95210-3) Abnormal [facility] GLUCOSE (AUTOMATED)2023-12-15 12:45:21* Test Item Value Reference Range Interpretation Comme nts POCT GLU (test code = 8750159859) 144 mg/dL 70-110 H Lab Interpretation (test cod e = 75153-4) [facility]normal [facility] BudaThyroid Stimulating Xtpujna0227-68-30 01:46:59 * Test Item Value Reference Range Interpretation Comme nts TSH (test code = 8203705793) 1.14 0.45-4.70 Lab Interpretation (test cod e = 25616-6) Normal [facility] BudaFREE [id number] 01:33:00* Test Item Value Reference Range Interpretation Comme nts FREE T3 (test code = 3992505183) 3.68 pg/mL 2.77-5.27 Lab Interpretation (test cod e = 82639-6) Normal [facility] GLUCOSE (AUTOMATED)2023-12-15 00:57:48* Test Item Value Reference Range Interpretation Comme nts POCT GLU (test code = 8233887961) 131 mg/dL 70-110 H Lab Interpretation (test cod e = 92947-8) Abnormal [facility] BudaTroponin [id number] 21:45:52* Test Item Value Reference Range Interpretation Comme nts TROPONIN I (test code = 4458329132) 0.009 ng/mL <=0.034 LYNDSAY (test code = [...] of biotin. Lab Interpretation (test code = 50733-6) Normal [facility] BudaComp. Metabolic Panel (47511)2023-12-14 20:19:49* Test Item Value Reference Range Interpretation Comme nts NA (test code = 9879604108) 138 mmol/L 135-145 K (test code = 6584486525) 3.5 mmol/L 3.5-5.0 CL (test code = 5823745053) 108 mmol/L 98-108 CO2 TOTAL (test code = 0811262643) 24 mmol/L 23-31 AGAP (test code = 8528795950) 6 2-16 BUN (test code = 7999188172) 7 mg/dL 7-23 GLUCOSE (test code = 7930818319) 96 mg/dL 70-110 CREATININE (test code = 2160-0) 0.51 mg/dL 0.50-1.04 TOTAL BILI (test code = 3034472319) 0.4 mg/dL 0.1-1.1 CALCIUM (test code = 3725010383) 8.6 mg/dL 8.6-10.6 T PROTEIN (test code = 3383627130) 6.8 g/dL 6.3-8.2 ALBUMIN (test code = 6536789740) 3.8 g/dL 3.5-5.0 ALK PHOS (test code = 2996934518) 107 U/L 34-122 ALTv (test code = 1742-6) 13 U/L 5-35 AST(SGOT) (test code = 2747880635) 28 U/L 13-40 eGFR (test code = 36963-7) 113.2 mL/min/1.73m2 CKD-EPI eGFR (20 21). Assuming creatinine has been stable day-to-day for at least three months, the eGFR indicates Category G1 (>= 90 mL/min/1.73 m2) [facility] BudaTroponin [id number] 20:15:27* Test Item Value Reference Range Interpretation Comme nts TROPONIN I (test code = 3831817633) 0.009 ng/mL <=0.034 LYNDSAY (test code = [...] of biotin. Lab Interpretation (test code = 56427-1) Normal [facility] BudaN-Terminal Txh-Tfp0406-09-27 20:12:51* Test Item Value Reference Range Interpretation Comme nts NT-proBNP (test code = 60767-6) 2250 pg/mL <=125 H LYNDSAY (test code = LYNDSAY) Positive: Heart Failure Likely Lab Interpretation (test code = 84937-7) [facility]normal [facility] BudaXR CHEST 1 [id number] 20:00:17EXAM: XR CHEST 1 VW COMPARISON: 12/02/2023 HISTORY: 53 years-old Female; shortness of breath FINDINGS: Lungs: The lung volumes are normal. Left upper lung calcified granuloma. Nofocal opacities. No pneumothorax. No pleural effusion. Heart/Mediastinum: The cardiac silhouette appears normal. Bones andsoft tissues: No acute osseous findings are detected.Redemonstrated ACDF projecting over the lower cervical spine.[facility] BudaD-Cksek6029-23-15 19:45:05* Test Item Value Reference Range Interpretation Comments D-DIMER (test code = 7277299323) 1.33 See_Comment H [Automated message] The system [...] a diagnosis. Lab Interpretation (test code = 08100-8) Abnormal [facility] BudaCb with Kata3521-30-64 19:39:29* Test Item Value Reference Range Interpretation [...] g/dL 31.6-35.1 L RDW-SD (test code = 23359-0) 70.2 fL 39.0-49.9 H RDW-CV (test code = 788-0) 21.6 % 12.0-15.5 H PLT (test code = 777-3) 259 166-358 MPV (test code = 29495-9) 8.7 fL 9.5-12.9 L NRBC/100 WBC (test code = 3875389715) 0.0 0.0-10.0 NRBC x10^3 (test code = 6956228090) See_Comment [Automated messa ge] The system which generated this result transmitted reference range: 10*3/?L. The reference range was not used to interpret this result as normal/abnormal. GRAN MAT (NEUT) % (test code = 770-8) 57.7 % IMM GRAN % (test code = 8963183742) 0.40 % LYMPH % (test code = 736-9) 30.2 % MONO % (test code = 5905-5) 9.9 % EOS % (test code = 713-8) 0.8 % BASO % (test code = 706-2) 1.0 % GRAN MAT x10^3(ANC) (test code = 7082501387) 4.17 10*3/uL 1.88-7.09 IMM GRAN x10^3 (test code = 4516255536) 0.03 10*3/uL 0.00-0.06 LYMPH x10^3 (test code = 731-0) 2.19 10*3/uL 1.32-3.29 MONO x10^3 (test code = 742-7) 0.72 10*3/uL 0.33-0.92 EOS x10^3 (test code = 711-2) 0.06 10*3/uL 0.03-0.39 BASO x10^3 (test code = 704-7) 0.07 10*3/uL 0.01-0.07 Lab Interpretation (test code = 97618-3) [facility]normal [facility] BudaPONY GLUCOSE (AUTOMATED)2023-12-03 21:30:58* Test Item Value Reference Range Interpretation Comme nts POCT GLU (test code = 4966919759) 102 mg/dL 70-110 Lab Interpretation (test cod e = 60096-5) Normal [facility] Metabolic Panel (NA, K, CL, CO2, GLUCOSE, BUN, CREATININE, CA)2023-12-03 18:22:31* Test Item Value Reference Range Interpretation Comme nts NA (test code = 1703573293) 135 mmol/L 135-145 K (test code = 7282210692) 3.9 mmol/L 3.5-5.0 CL (test code = 7969358619) 103 mmol/L 98-108 CO2 TOTAL (test code = 7197994578) 29 mmol/L 23-31 AGAP (test code = 2294249266) 3 2-16 BUN (test code = 6905599600) 12 mg/dL 7-23 GLUCOSE (test code = 8894420969) 85 mg/dL 70-110 CREATININE (test code = 2160-0) 0.63 mg/dL 0.50-1.04 CALCIUM (test code = 2794317415) 8.7 mg/dL 8.6-10.6 eGFR (test code = 72105-6) 107.6 mL/min/1.73m2 CKD-EPI eGFR (20 21). Assuming creatinine has been stable day-to-day for at least three months, the eGFR indicates Category G1 (>= 90 mL/min/1.73 m2) [facility] GLUCOSE (AUTOMATED)2023-12-03 16:52:56* Test Item Value Reference Range Interpretation Comme nts POCT GLU (test code = 5588695228) 98 mg/dL 70-110 Lab Interpretation (test cod e = 45701-2) Normal [facility] GLUCOSE (AUTOMATED)2023-12-03 13:01:11* Test Item Value Reference Range Interpretation Comme nts POCT GLU (test code = 2349425135) 102 mg/dL 70-110 Lab Interpretation (test cod e = 00674-8) Normal [facility] Metabolic Panel (NA, K, CL, CO2, GLUCOSE, BUN, CREATININE, CA)2023-12-03 10:22:08* Test Item Value Reference Range Interpretation Comme nts NA (test code = 0272682764) 138 mmol/L 135-145 K (test code = 6762013120) 3.2 mmol/L 3.5-5.0 L CL (test code = 8764077026) 105 mmol/L 98-108 CO2 TOTAL (test code = 0568238132) 26 mmol/L 23-31 AGAP (test code = 7574576795) 7 2-16 BUN (test code = 8488938752) 11 mg/dL 7-23 GLUCOSE (test code = 6076788073) 96 mg/dL 70-110 CREATININE (test code = 2160-0) 0.61 mg/dL 0.50-1.04 CALCIUM (test code = 5832520868) 8.6 mg/dL 8.6-10.6 eGFR (test code = 93114-6) 108.4 mL/min/1.73m2 CKD-EPI eGFR (2020). Assuming creatinine has been stable day-to-day for at least three months, the eGFR indicates Category G1 (>= 90 mL/min/1.73 m2) Lab Interpretation (test code = 02965-4) Abnormal [facility] BudaMagnesium2024-05-16 10:22:08* Test Item Value Reference Range Interpretation Comme nts MAGNESIUM (test code = 9705753731) 1.9 mg/dL 1.7-2.4 Lab Interpretation (test cod e = 64103-4) Normal [facility] BudaHepatic Function Panel (48918) (ALB,T.PRO,BILI T,BU/BC,ALT,AST,ALK PHOS)2023-12-03 10:22:08* Test Item Value Reference Range Interpretation Comme nts TOTAL BILI (test code = 9777950278) 0.5 mg/dL 0.1-1.1 BILI UNCON (test code = 0933760753) 0.2 mg/dL 0.1-1.1 BILI CONJ (test code = 1627400897) 0.0 mg/dL 0.0-0.3 T PROTEIN (test code = 5632963107) 6.7 g/dL 6.3-8.2 ALBUMIN (test code = 2371462246) 3.7 g/dL 3.5-5.0 ALK PHOS (test code = 0417996098) 135 U/L 34-122 H ALTv (test code = 1742-6) 26 U/L 5-35 AST(SGOT) (test code = 6867235525) 24 U/L 13-40 Lab Interpretation (test cod e = 68483-1) Abnormal [facility] BudaAC Panel 21 + Lactic Piaw8153-71-14 02:00:25* Test Item Value Reference Range Interpretation Comme nts PH (test code = 3852441873) 7.40 7.32-7.42 PCO2 NOEMI (test code = 6683472304) 40 41-51 L PO2 NOEMI (test code = 0167369766) 34 25-40 HCO3 NOEMI (test code = 6164147093) 24 24-28 AC VBE(BEAKER) (test code = 5515090044) -0.8 mEq/L THB NOEMI (test code = 6346133210) 9.3 g/dL 12.0-16.0 L %O2HB NOEMI (test code = 1790142897) 57.9 % 52.0-63.0 %COHB NOEMI (test code = 3994474918) 1.1 % 0.0-1.5 %METHB NOEMI (test code = 8357535974) 0.3 % 0.4-1.5 L VOL%O2 NOEMI (test code = 6487398228) 7.6 % 6.0-12.0 NA (test code = 7782264472) 139 mmol/L 135-145 K+ (test code = 1197653189) 3.5 mmol/L 3.5-5.0 AC CA IONZ (test code = 9645044985) 4.50 mg/dL 4.50-5.30 GLUCOSE (test code = 7648090324) 88 mg/dL 70-110 LACTIC ACID (test code = 7953729276) 1.63 mmol/L 0.50-2.20 QUES Lab Interpretation (test cod e = 15195-5) [facility]normal [facility]udaCT CHEST PULMONARY [id number] 19:47:28HISTORY: Chest pain, rule out P.E. TECHNIQUE: [...] study.[facility] BudaTroponin [id number] 19:38:49* Test Item Value Reference Range Interpretation Comme nts TROPONIN I (test code = 5263953730) 0.020 ng/mL <=0.034 LYNDSAY (test code = [...] of biotin. Lab Interpretation (test code = 36597-4) Normal [facility] BudaN-Terminal Wuk-Tsh5164-60-15 19:37:29* Test Item Value Reference Range Interpretation Comme nts NT-proBNP (test code = 38659-6) 3420 pg/mL <=125 H LYNDSAY (test code = LYNDSAY) Positive: Heart Failure Likely Lab Interpretation (test code = 56165-0) Abnormal [facility] with Kzmz7807-64-22 19:28:47* Test Item Value Reference Range Interpretation [...] g/dL 31.6-35.1 L RDW-SD (test code = 31884-4) 68.9 fL 39.0-49.9 H RDW-CV (test code = 788-0) 22.6 % 12.0-15.5 H PLT (test code = 777-3) 379 166-358 H MPV (test code = 06496-2) 9.1 fL 9.5-12.9 L NRBC/100 WBC (test code = 1275276873) 0.0 0.0-10.0 NRBC x10^3 (test code = 4502303823) See_Comment [Automated messa ge] The system which generated this result transmitted reference range: 10*3/?L. The reference range was not used to interpret this result as normal/abnormal. GRAN MAT (NEUT) % (test code = 770-8) 73.5 % IMM GRAN % (test code = 0525269231) 1.70 % LYMPH % (test code = 736-9) 14.9 % MONO % (test code = 5905-5) 8.3 % EOS % (test code = 713-8) 1.2 % BASO % (test code = 706-2) 0.4 % GRAN MAT x10^3(ANC) (test code = 3391759027) 8.05 10*3/uL 1.88-7.09 H IMM GRAN x10^3 (test code = 0145452825) 0.19 10*3/uL 0.00-0.06 H LYMPH x10^3 (test code = 731-0) 1.63 10*3/uL 1.32-3.29 MONO x10^3 (test code = 742-7) 0.91 10*3/uL 0.33-0.92 EOS x10^3 (test code = 711-2) 0.13 10*3/uL 0.03-0.39 BASO x10^3 (test code = 704-7) 0.04 10*3/uL 0.01-0.07 Lab Interpretation (test code = 18095-1) [facility]normal [facility]udaXR CHEST 1 [id number] 19:28:17HISTORY: Dyspnea. TECHNIQUE: Portable AP view of the chest is obtained. Comparison made with11/21/2023 study. FINDINGS: No acute pneumonia. No pneumothorax or pleural effusion orpulmonary congestion detected. Mild cardiomegaly noted. Multilevel lowercervical ACDF surgical changes partially visualized. Mild degenerativechanges noted in the right glenohumeral joint. CONCLUSIONS: Mild cardiomegaly.[facility] BudaComp. Metabolic Panel (44352) 2023-12-02 19:27:30* Test Item Value Reference Range Interpretation Comme nts NA (test code = 8452226586) 138 mmol/L 135-145 K (test code = 1012897268) 3.8 mmol/L 3.5-5.0 CL (test code = 3267526048) 106 mmol/L 98-108 CO2 TOTAL (test code = 6226210792) 22 mmol/L 23-31 L AGAP (test code = 6076115936) 10 2-16 BUN (test code = 4836041340) 11 mg/dL 7-23 GLUCOSE (test code = 1514839879) 103 mg/dL 70-110 CREATININE (test code = 2160-0) 0.56 mg/dL 0.50-1.04 TOTAL BILI (test code = 9729808269) 0.8 mg/dL 0.1-1.1 CALCIUM (test code = 0483102932) 8.9 mg/dL 8.6-10.6 T PROTEIN (test code = 0116009536) 7.3 g/dL 6.3-8.2 ALBUMIN (test code = 5349297287) 3.9 g/dL 3.5-5.0 ALK PHOS (test code = 1393132140) 147 U/L 34-122 H ALTv (test code = 1742-6) 34 U/L 5-35 AST(SGOT) (test code = 2290340364) 30 U/L 13-40 eGFR (test code = 12102-0) 110.7 mL/min/1.73m2 CKD-EPI eGFR (2020). Assuming creatinine has been stable day-to-day for at least three months, the eGFR indicates Category G1 (>= 90 mL/min/1.73 m2) Lab Interpretation (test code = 72117-6) [facility]normal [facility] Ovy-Bhu4593-74-11 17:53:15* Test Item Value Reference Range Interpretation Comme nts NT-proBNP (test code = 16994-7) 1070 pg/mL <=125 H LYNDSAY (test code = LYNDSAY) Positive: Heart Failure Likely Lab Interpretation (test code = 76410-6) [facility]normal [facility] (AUTOMATED)2023-11-28 16:41:29* Test Item Value Reference Range Interpretation Comme nts POCT GLU (test code = 9895540504) 129 mg/dL 70-110 H Lab Interpretation (test cod e = 66765-7) [facility]normal [facility]2024-05-11 10:02:12* Test Item Value Reference Range Interpretation Comme nts MAGNESIUM (test code = 7088230856) 2.1 mg/dL 1.7-2.4 Lab Interpretation (test cod e = 58111-1) Normal [facility]2024-05-11 10:02:12* Test Item Value Reference Range Interpretation Comme nts PHOSPHORUS (test code = 6406760772) 5.9 mg/dL 2.5-5.0 H Lab Interpretation (test cod e = 01461-6) [facility]normal [facility] Met[facility] Panel (45948)2023-11-28 10:02:12* Test Item Value Reference Range Interpretation Comme nts NA (test code = 1912908309) 140 mmol/L 135-145 K (test code = 0414391888) 3.7 mmol/L 3.5-5.0 CL (test code = 2804952217) 98 mmol/L 98-108 CO2 TOTAL (test code = 4978412904) 33 mmol/L 23-31 H AGAP (test code = 7461813445) 9 2-16 BUN (test code = 8839386737) 24 mg/dL 7-23 H GLUCOSE (test code = 4996044319) 107 mg/dL 70-110 CREATININE (test code = 2160-0) 0.61 mg/dL 0.50-1.04 TOTAL BILI (test code = 0562605546) 0.6 mg/dL 0.1-1.1 CALCIUM (test code = 0971220780) 8.0 mg/dL 8.6-10.6 L T PROTEIN (test code = 7958420619) 6.0 g/dL 6.3-8.2 L ALBUMIN (test code = 7956149837) 3.4 g/dL 3.5-5.0 L ALK PHOS (test code = 1307751735) 173 U/L 34-122 H ALTv (test code = 1742-6) 61 U/L 5-35 H AST(SGOT) (test code = 5289163677) 29 U/L 13-40 eGFR (test code = 72790-0) 108.4 mL/min/1.73m2 CKD-EPI eGFR (2020). Assuming creatinine has been stable day-to-day for at least three months, the eGFR indicates Category G1 (>= 90 mL/min/1.73 m2) Lab Interpretation (test code = 59131-6) Abnormal [facility] with Gjbj5283-97-56 09:37:29* Test Item Value Reference Range Interpretation [...] g/dL 31.6-35.1 L RDW-SD (test code = 94173-4) 65.6 fL 39.0-49.9 H RDW-CV (test code = 788-0) 22.0 % 12.0-15.5 H PLT (test code = 777-3) 292 166-358 MPV (test code = 94821-1) 9.1 fL 9.5-12.9 L NRBC/100 WBC (test code = 2079155619) 0.0 0.0-10.0 NRBC x10^3 (test code = 4507401271) See_Comment [Automated messa ge] The system which generated this result transmitted reference range: 10*3/?L. The reference range was not used to interpret this result as normal/abnormal. GRAN MAT (NEUT) % (test code = 770-8) 62.0 % IMM GRAN % (test code = 1774272169) 1.20 % LYMPH % (test code = 736-9) 28.5 % MONO % (test code = 5905-5) 7.3 % EOS % (test code = 713-8) 0.9 % BASO % (test code = 706-2) 0.1 % GRAN MAT x10^3(ANC) (test code = 3142957016) 4.98 10*3/uL 1.88-7.09 IMM GRAN x10^3 (test code = 7978093212) 0.10 10*3/uL 0.00-0.06 H LYMPH x10^3 (test code = 731-0) 2.29 10*3/uL 1.32-3.29 MONO x10^3 (test code = 742-7) 0.59 10*3/uL 0.33-0.92 EOS x10^3 (test code = 711-2) 0.07 10*3/uL 0.03-0.39 BASO x10^3 (test code = 704-7) 0.01-0.07 Lab Interpretation (test code = 63310-0) Abnormal [facility] GLUCOSE (AUTOMATED)2023-11-28 01:32:15* Test Item Value Reference Range Interpretation Comme nts POCT GLU (test code = 0735437367) 154 mg/dL 70-110 H Lab Interpretation (test cod e = 17673-2) Abnormal [facility] GLUCOSE (AUTOMATED)2023-11-27 21:45:44* Test Item Value Reference Range Interpretation Comme nts POCT GLU (test code = 2392563342) 183 mg/dL 70-110 H Lab Interpretation (test cod e = 00885-9) Abnormal [facility] GLUCOSE (AUTOMATED)2023-11-27 16:31:46* Test Item Value Reference Range Interpretation Comme nts POCT GLU (test code = 0194186639) 96 mg/dL 70-110 Lab Interpretation (test cod e = 16194-8) Normal [facility] GLUCOSE (AUTOMATED)2023-11-27 12:42:32* Test Item Value Reference Range Interpretation Comme nts POCT GLU (test code = 9419705520) 88 mg/dL 70-110 Lab Interpretation (test cod e = 57206-5) [facility]uda[facility] Acid Whole Wzdto9875-57-64 06:44:07* Test Item Value Reference Range Interpretation Comme nts LACTIC ACID (test code = 9717601798) 1.48 mmol/L 0.50-2.20 Lab Interpretation (test cod e = 31340-1) Normal [facility] GLUCOSE (AUTOMATED)2023-11-27 02:37:00* Test Item Value Reference Range Interpretation Comme nts POCT GLU (test code = 7227462710) 167 mg/dL 70-110 H Lab Interpretation (test cod e = 82775-5) [facility]normal [facility] BudaValproic Acid, Wugu6503-12-89 00:22:04* Test Item Value Reference Range Interpretation Comme nts Valproic Acid, Free (test code = 3298174261) 23.8 ug/mL 4.0-15.0 H LYNDSAY (test code = LYNDSAY) Toxic Range: ? Greater than 15 ug/mL Test developed and characteristics determined by [facility] Laboratory Services. Lab Interpretation (test code = 34479-8) [facility]normal [facility] BudaFolate2024-05-09 22:17:52* Test Item Value Reference Range Interpretation Comme nts FOLATE SER (test code = 3314959492) 10.9 ng/mL 3.0-20.0 Lab Interpretation (test cod e = 00882-3) Normal [facility] BudaVitamin B12, Lzjte0197-07-19 22:17:52* Test Item Value Reference Range Interpretation Comme nts VIT B12 (test code = 3240947613) 485 pg/mL 240-930 LYNDSAY (test code = LYNDSAY) Biotin has been reported to cause a positive bias, interpret results relative to patient's use of biotin. Lab Interpretation (test code = 41076-4) Normal [facility] BudaCT HEAD WO BEIRMCIF4543-22-38 22:17:11EXAM: CT HEAD WO CONTRAST HISTORY: 53 [...] [facility] BudaMagnesium2024-05-09 22:11:53* Test Item Value Reference Range Interpretation Comme nts MAGNESIUM (test code = 1970122618) 2.1 mg/dL 1.7-2.4 Lab Interpretation (test cod e = 98746-1) Normal [facility] BudaComp. Metabolic Panel (34241)2023-11-26 22:11:53* Test Item Value Reference Range Interpretation Comme nts NA (test code = 4194731671) 132 mmol/L 135-145 L K (test code = 5950579920) 4.3 mmol/L 3.5-5.0 CL (test code = 6933954761) 94 mmol/L 98-108 L CO2 TOTAL (test code = 4530746905) 34 mmol/L 23-31 H AGAP (test code = 5072702435) 4 2-16 BUN (test code = 2191096144) 24 mg/dL 7-23 H GLUCOSE (test code = 1095379371) 178 mg/dL 70-110 H CREATININE (test code = 2160-0) 0.62 mg/dL 0.50-1.04 TOTAL BILI (test code = 9291868789) 0.6 mg/dL 0.1-1.1 CALCIUM (test code = 9289338309) 8.0 mg/dL 8.6-10.6 L T PROTEIN (test code = 9479049990) 6.1 g/dL 6.3-8.2 L ALBUMIN (test code = 1025827055) 3.5 g/dL 3.5-5.0 ALK PHOS (test code = 7135467393) 212 U/L 34-122 H ALTv (test code = 1742-6) 80 U/L 5-35 H AST(SGOT) (test code = 2422397149) 51 U/L 13-40 H eGFR (test code = 64479-1) 108.0 mL/min/1.73m2 CKD-EPI eGFR (2020). Assuming creatinine has been stable day-to-day for at least three months, the eGFR indicates Category G1 (>= 90 mL/min/1.73 m2) Lab Interpretation (test code = 59569-8) [facility]normal [facility]udaPOCT GLU[facility]SE (AUTOMATED)2023-11-26 21:19:06* Test Item Value Reference Range Interpretation Comme [facility] POCT GLU (test code = 8789030531) 224 mg/dL 70-110 H Lab Interpretation (test cod e = 60497-5) Abnormal [facility] BudaKeppra (Levetiracetam)2023-11-26 19:45:17* Test Item Value Reference Range Interpretation Comme [facility] KEPPRA (test code = 1080141419) 12-46 L LYNDSAY (test code = LYNDSAY) Therapeutic range: 12-46 ?g/mL ? ?Toxic: Not well established.Test developed and characteristics determined by [facility] Laboratory Services. Lab Interpretation (test code = 13851-0) Abnormal [facility] BudaLaakic Acid Whole Vndvd9054-81-60 18:11:07* Test Item Value Reference Range Interpretation Comme [facility] LACTIC ACID (test code = 5701142690) 6.19 mmol/L 0.50-2.20 H Lab Interpretation (test cod e = 68286-4) Abnormal [facility] BudaPONY GLUCOSE (AUTOMATED)2023-11-26 17:06:14* Test Item Value Reference Range Interpretation Comme [facility] POCT GLU (test code = 5863970789) 293 mg/dL 70-110 H Lab Interpretation (test cod e = 14228-5) Abnormal [facility]. Metabolic Panel (64903)2023-11-26 14:21:31* Test Item Value Reference Range Interpretation Comme [facility] NA (test code = 5770692560) 140 mmol/L 135-145 K (test code = 4505653262) 3.9 mmol/L 3.5-5.0 CL (test code = 2479169898) 93 mmol/L 98-108 L CO2 TOTAL (test code = 1458168548) 38 mmol/L 23-31 H AGAP (test code = 9418262288) 9 2-16 BUN (test code = 5339366867) 25 mg/dL 7-23 H GLUCOSE (test code = 6950450445) 83 mg/dL 70-110 CREATININE (test code = 2160-0) 0.71 mg/dL 0.50-1.04 TOTAL BILI (test code = 2446707843) 0.7 mg/dL 0.1-1.1 CALCIUM (test code = 9982665878) 8.7 mg/dL 8.6-10.6 T PROTEIN (test code = 5907913360) 6.6 g/dL 6.3-8.2 ALBUMIN (test code = 8309284244) 3.6 g/dL 3.5-5.0 ALK PHOS (test code = 4796382766) 220 U/L 34-122 H ALTv (test code = 1742-6) 95 U/L 5-35 H AST(SGOT) (test code = 5003141502) 47 U/L 13-40 H eGFR (test code = 25497-3) 103.1 mL/min/1.73m2 CKD-EPI eGFR (2020). Assuming creatinine has been stable day-to-day for at least three months, the eGFR indicates Category G1 (>= 90 mL/min/1.73 m2) Lab Interpretation (test code = 69552-5) Abnormal [facility] BudaMagnesium2024-05-09 14:03:47* Test Item Value Reference Range Interpretation Comme nts MAGNESIUM (test code = 2669511581) 2.3 mg/dL 1.7-2.4 Lab Interpretation (test cod e = 15896-1) Normal [facility] BudaCb with Jwne7231-91-68 13:57:47* Test Item Value Reference Range Interpretation [...] g/dL 31.6-35.1 L RDW-SD (test code = 23451-6) 67.3 fL 39.0-49.9 H RDW-CV (test code = 788-0) 22.5 % 12.0-15.5 H PLT (test code = 777-3) 285 166-358 MPV (test code = 00646-3) 9.2 fL 9.5-12.9 L NRBC/100 WBC (test code = 3231229054) 0.3 0.0-10.0 NRBC x10^3 (test code = 3338754529) 0.03 See_Comment [Automated messa ge] The system which generated this result transmitted reference range: 10*3/?L. The reference range was not used to interpret this result as normal/abnormal. GRAN MAT (NEUT) % (test code = 770-8) 70.5 % IMM GRAN % (test code = 6819176047) 0.80 % LYMPH % (test code = 736-9) 21.7 % MONO % (test code = 5905-5) 6.4 % EOS % (test code = 713-8) 0.5 % BASO % (test code = 706-2) 0.1 % GRAN MAT x10^3(ANC) (test code = 7421759196) 7.54 10*3/uL 1.88-7.09 H IMM GRAN x10^3 (test code = 5820304088) 0.09 10*3/uL 0.00-0.06 H LYMPH x10^3 (test code = 731-0) 2.32 10*3/uL 1.32-3.29 MONO x10^3 (test code = 742-7) 0.69 10*3/uL 0.33-0.92 EOS x10^3 (test code = 711-2) 0.05 10*3/uL 0.03-0.39 BASO x10^3 (test code = 704-7) 0.01-0.07 Lab Interpretation (test code = 59828-9) Abnormal [facility] BudaLaakic Acid Whole Okdrq4979-60-22 10:06:23* Test Item Value Reference Range Interpretation Comme [facility] LACTIC ACID (test code = 6156871470) 2.41 mmol/L 0.50-2.20 H Lab Interpretation (test cod e = 51002-9) Abnormal [facility]udaPONY GLUCOSE (AUTOMATED)2023-11-26 02:14:06* Test Item Value Reference Range Interpretation Comme [facility] POCT GLU (test code = 1957439743) 288 mg/dL 70-110 H Lab Interpretation (test cod e = 65830-3) Abnormal [facility] BudaLactic Acid Whole Cmmqz2945-46-17 00:56:52* Test Item Value Reference Range Interpretation Comme [facility] LACTIC ACID (test code = 7681243638) 2.93 mmol/L 0.50-2.20 H Lab Interpretation (test cod e = 18460-9) Abnormal [facility] BudaElectroencephalogram (EEG) - Duration of test: Continuous EEG Monitoring (LTM); Release to patient:Ronwvaapm8529-37-65 00:00:00 * Test Item Value Reference Range Interpretation Comme nts LYNDSAY (test code = LYNDSAY) LONG-TERM EEG MONITORING #1: 11/26/2023, 15:40 - 16: 31 Name: Heather TurnerN: [id number] Age:53 year oldSex: female History from chart review: This is a 53 year old female with a PMH significant for HFrEF (~35% 05/2023), HTN, Smoker, COPD (on intermittent home O2), chronic low back pain, seizure disorder, C3-C4 ACDF and L3-L4 laminectomies (06/01/23) c/b chronic low back pain 2/2 lumbar spinal stenosis, and depression presenting from [facility] ED due to SOB. Level of Consciousness: [...] segment. Laura Ramirez MD, PhD, FAESData: 11/26/2023 JOB ANALYST EEG MONITORING SEGMENT #2: 11/26/23, 16:31:09-19:29:41 In [...] Interpreted by Dewey Neal MD on 11/26/23 -----JOB ANALYST EEG MONITORING SEGMENT #3: 11/26/23, 19:29:41 to [...] on 11/27/23 Lab Interpretation (test code = 11742-8) Abnormal [facility]. Metabolic Panel (12310)2023-11-25 21:24:39* Test Item Value Reference Range Interpretation Comme nts NA (test code = 6428814350) 134 mmol/L 135-145 L K (test code = 8388833478) 4.3 mmol/L 3.5-5.0 CL (test code = 0951948388) 89 mmol/L 98-108 L CO2 TOTAL (test code = 3015132293) 37 mmol/L 23-31 H AGAP (test code = 8509796099) 8 2-16 BUN (test code = 2352508685) 24 mg/dL 7-23 H GLUCOSE (test code = 4532117677) 177 mg/dL 70-110 H CREATININE (test code = 2160-0) 0.69 mg/dL 0.50-1.04 TOTAL BILI (test code = 3284358104) 0.9 mg/dL 0.1-1.1 CALCIUM (test code = 4873332283) 8.6 mg/dL 8.6-10.6 T PROTEIN (test code = 9576589571) 7.3 g/dL 6.3-8.2 ALBUMIN (test code = 0833541216) 4.1 g/dL 3.5-5.0 ALK PHOS (test code = 7893452529) 263 U/L 34-122 H ALTv (test code = 1742-6) 116 U/L 5-35 H AST(SGOT) (test code = 8618095263) 36 U/L 13-40 eGFR (test code = 80477-7) 105.2 mL/min/1.73m2 CKD-EPI eGFR (2020). Assuming creatinine has been stable day-to-day for at least three months, the eGFR indicates Category G1 (>= 90 mL/min/1.73 m2) Lab Interpretation (test code = 65474-0) Abnormal [facility] BudaMagnesium2024-05-08 21:24:39* Test Item Value Reference Range Interpretation Comme nts MAGNESIUM (test code = 6921068152) 2.1 mg/dL 1.7-2.4 Lab Interpretation (test cod e = 20665-3) Normal [facility] BudaLactic Acid Whole Kpjyd5487-44-71 21:10:26* Test Item Value Reference Range Interpretation Comme nts LACTIC ACID (test code = 4492234935) 4.07 mmol/L 0.50-2.20 H Lab Interpretation (test cod e = 40313-0) Abnormal [facility] GLUCOSE (AUTOMATED)2023-11-25 21:01:04* Test Item Value Reference Range Interpretation Comme nts POCT GLU (test code = 8057706472) 173 mg/dL 70-110 H Lab Interpretation (test cod e = 80075-7) Abnormal [facility] GLUCOSE (AUTOMATED)2023-11-25 16:59:00* Test Item Value Reference Range Interpretation Comme nts POCT GLU (test code = 5975313699) 220 mg/dL 70-110 H Lab Interpretation (test cod e = 13183-0) Abnormal [facility] GLUCOSE (AUTOMATED)2023-11-25 13:06:20* Test Item Value Reference Range Interpretation Comme nts POCT GLU (test code = 0225543888) 92 mg/dL 70-110 Lab Interpretation (test cod e = 36186-7) [facility] Cyiux0322-54-33 09:28:51* Test Item Value Reference Range Interpretation Comme nts LACTIC ACID (test code = 7138857706) 1.66 mmol/L 0.50-2.20 Lab Interpretation (test cod e = 86048-4) [facility] Cgaog9342-17-53 04:58:57* Test Item Value Reference Range Interpretation Comme nts LACTIC ACID (test code = 2323304888) 2.00 mmol/L 0.50-2.20 Lab Interpretation (test cod e = 38613-0) Normal [facility] GLUCOSE (AUTOMATED)2023-11-25 03:05:13* Test Item Value Reference Range Interpretation Comme nts POCT GLU (test code = 8677213575) 189 mg/dL 70-110 H Lab Interpretation (test cod e = 61245-1) Abnormal [facility] ABDOMEN PELVIS W OZFNWILA3948-82-42 00:18:09CT ABDOMEN PELVIS W CONTRAST 11/24/2023 5:07 [...] edema.[facility] BudaLactic Acid Whole Fqorw3014-10-34 21:31:49* Test Item Value Reference Range Interpretation Comme [facility] LACTIC ACID (test code = 8596877896) 4.54 mmol/L 0.50-2.20 H Lab Interpretation (test cod e = 45351-8) Abnormal [facility] GLUCOSE (AUTOMATED)2023-11-24 21:31:39* Test Item Value Reference Range Interpretation Comme [facility] POCT GLU (test code = 3906050285) 198 mg/dL 70-110 H Lab Interpretation (test cod e = 62944-9) Abnormal [facility] GLUCOSE (AUTOMATED)2023-11-24 17:53:57* Test Item Value Reference Range Interpretation Comme [facility] POCT GLU (test code = 9276721777) 226 mg/dL 70-110 H Lab Interpretation (test cod e = 10496-2) Abnormal [facility] GLUCOSE (AUTOMATED)2023-11-24 17:53:57* Test Item Value Reference Range Interpretation Comme nts POCT GLU (test code = 4966958438) 226 mg/dL 70-110 H Lab Interpretation (test cod e = 90627-0) Abnormal [facility] GLUCOSE (AUTOMATED)2023-11-24 17:53:57* Test Item Value Reference Range Interpretation Comme nts POCT GLU (test code = 2563014456) 226 mg/dL 70-110 H Lab Interpretation (test cod e = 94639-1) Abnormal [facility] BudaLaakic Acid Whole Dsbwp1129-81-45 15:48:27* Test Item Value Reference Range Interpretation Comme nts LACTIC ACID (test code = 9002662243) 4.43 mmol/L 0.50-2.20 H Lab Interpretation (test cod e = 19138-2) [facility] Whole Wbttf7933-10-54 15:48:27* Test Item Value Reference Range Interpretation Comme nts LACTIC ACID (test code = 5343272963) 4.43 mmol/L 0.50-2.20 H Lab Interpretation (test cod e = 79272-2) Abnormal [facility] BudaLactic Acid Whole Bblbo8215-22-28 15:48:27* Test Item Value Reference Range Interpretation Comme nts LACTIC ACID (test code = 6334555537) 4.43 mmol/L 0.50-2.20 H Lab Interpretation (test cod e = 05665-0) Abnormal [facility] BudaCardiovascular Rbtujueysxqyzls8722-36-16 14:28:29? ?RHC/Coronary Angiography Date of Service: 11/23/2023 ?3:18 PM Indication/Diagnosis: heart failure Consent source: self Consent type: indications/complications discussed with patient/legal guardian; written consent obtained Time out completed: yes Aseptic technique: Chlorprep Local Anesthesia: 1% lidocaine without epinephrine Sedation: fentanyl 50 mcg, Versed 2 mg Access site: right radial artery, RIJ [place]thing[place] 4.0 5fr8 Fr IJ sheathSwan Rosalba ? [...] was present for the entire procedure. K[facility]IN [facility]CARRAWAY [facility] Post-Procedure Sedation AddendumImmediately prior to [...] sided failure. Nataliia Ivy professor.Division of [facility]2023-11-24 12:34:31* Test Item Value Reference Range Interpretation Comme nts POCT GLU (test code = 3053762290) 114 mg/dL 70-110 H Lab Interpretation (test cod e = 33554-0) Abnormal [facility] GLUCOSE (AUTOMATED)2023-11-24 12:34:31* Test Item Value Reference Range Interpretation Comme nts POCT GLU (test code = 2600565401) 114 mg/dL 70-110 H Lab Interpretation (test cod e = 92652-8) Abnormal [facility] GLUCOSE (AUTOMATED)2023-11-24 12:34:31* Test Item Value Reference Range Interpretation Comme nts POCT GLU (test code = 5989355770) 114 mg/dL 70-110 H Lab Interpretation (test cod e = 73013-6) Abnormal [facility] BudaMagnesium2024-05-07 11:10:57* Test Item Value Reference Range Interpretation Comme nts MAGNESIUM (test code = 6912119376) 2.2 mg/dL 1.7-2.4 Lab Interpretation (test cod e = 06742-6) Normal [facility]. Metabolic Panel (02534)2023-11-24 11:10:57* Test Item Value Reference Range Interpretation Comme nts NA (test code = 2137961722) 141 mmol/L 135-145 K (test code = 8021337140) 4.1 mmol/L 3.5-5.0 CL (test code = 0609342399) 97 mmol/L 98-108 L CO2 TOTAL (test code = 0123115891) 36 mmol/L 23-31 H AGAP (test code = 9080505247) 8 2-16 BUN (test code = 9590310484) 20 mg/dL 7-23 GLUCOSE (test code = 9135330610) 125 mg/dL 70-110 H CREATININE (test code = 2160-0) 0.66 mg/dL 0.50-1.04 TOTAL BILI (test code = 9476954242) 0.7 mg/dL 0.1-1.1 CALCIUM (test code = 0295311765) 8.4 mg/dL 8.6-10.6 L T PROTEIN (test code = 0713253559) 6.5 g/dL 6.3-8.2 ALBUMIN (test code = 8235689866) 3.7 g/dL 3.5-5.0 ALK PHOS (test code = 4206047006) 266 U/L 34-122 H ALTv (test code = 1742-6) 149 U/L 5-35 H AST(SGOT) (test code = 3095696795) 35 U/L 13-40 eGFR (test code = 14349-5) 106.4 mL/min/1.73m2 CKD-EPI eGFR (2020). Assuming creatinine has been stable day-to-day for at least three months, the eGFR indicates Category G1 (>= 90 mL/min/1.73 m2) Lab Interpretation (test code = 03333-4) Abnormal [facility] BudaMagnesium2024-05-07 11:10:57* Test Item Value Reference Range Interpretation Comme nts MAGNESIUM (test code = 2612295096) 2.2 mg/dL 1.7-2.4 Lab Interpretation (test cod e = 33112-7) Normal [facility] BudaComp. Metabolic Panel (01517)2023-11-24 11:10:57* Test Item Value Reference Range Interpretation Comme nts NA (test code = 1481822031) 141 mmol/L 135-145 K (test code = 7959802528) 4.1 mmol/L 3.5-5.0 CL (test code = 9381566516) 97 mmol/L 98-108 L CO2 TOTAL (test code = 1474885859) 36 mmol/L 23-31 H AGAP (test code = 6683191166) 8 2-16 BUN (test code = 7769804221) 20 mg/dL 7-23 GLUCOSE (test code = 7641781033) 125 mg/dL 70-110 H CREATININE (test code = 2160-0) 0.66 mg/dL 0.50-1.04 TOTAL BILI (test code = 5689673693) 0.7 mg/dL 0.1-1.1 CALCIUM (test code = 4526629933) 8.4 mg/dL 8.6-10.6 L T PROTEIN (test code = 6962129038) 6.5 g/dL 6.3-8.2 ALBUMIN (test code = 9314687409) 3.7 g/dL 3.5-5.0 ALK PHOS (test code = 0040240230) 266 U/L 34-122 H ALTv (test code = 1742-6) 149 U/L 5-35 H AST(SGOT) (test code = 0119292272) 35 U/L 13-40 eGFR (test code = 86036-9) 106.4 mL/min/1.73m2 CKD-EPI eGFR (2020). Assuming creatinine has been stable day-to-day for at least three months, the eGFR indicates Category G1 (>= 90 mL/min/1.73 m2) Lab Interpretation (test code = 93166-6) Abnormal [facility] BudaMagnesium2024-05-07 11:10:57* Test Item Value Reference Range Interpretation Comme nts MAGNESIUM (test code = 9130407821) 2.2 mg/dL 1.7-2.4 Lab Interpretation (test cod e = 13238-5) Normal [facility] BudaComp. Metabolic Panel (50085)2023-11-24 11:10:57* Test Item Value Reference Range Interpretation Comme nts NA (test code = 5923126549) 141 mmol/L 135-145 K (test code = 7209470637) 4.1 mmol/L 3.5-5.0 CL (test code = 6287288261) 97 mmol/L 98-108 L CO2 TOTAL (test code = 3177469988) 36 mmol/L 23-31 H AGAP (test code = 8889723295) 8 2-16 BUN (test code = 3015291416) 20 mg/dL 7-23 GLUCOSE (test code = 2950878186) 125 mg/dL 70-110 H CREATININE (test code = 2160-0) 0.66 mg/dL 0.50-1.04 TOTAL BILI (test code = 8162092476) 0.7 mg/dL 0.1-1.1 CALCIUM (test code = 0590431169) 8.4 mg/dL 8.6-10.6 L T PROTEIN (test code = 4879273946) 6.5 g/dL 6.3-8.2 ALBUMIN (test code = 1873692563) 3.7 g/dL 3.5-5.0 ALK PHOS (test code = 4154912695) 266 U/L 34-122 H ALTv (test code = 1742-6) 149 U/L 5-35 H AST(SGOT) (test code = 3059382331) 35 U/L 13-40 eGFR (test code = 00191-9) 106.4 mL/min/1.73m2 CKD-EPI eGFR (2020). Assuming creatinine has been stable day-to-day for at least three months, the eGFR indicates Category G1 (>= 90 mL/min/1.73 m2) Lab Interpretation (test code = 16870-8) [facility] Hour Tlvhus9201-90-21 11:07:59* Test Item Value Reference Range Interpretation Comme nts LACTIC ACID (test code = 1498686479) 3.41 mmol/L 0.50-2.20 H Lab Interpretation (test cod e = 35235-9) [facility] Hour Ptwifd1543-26-50 11:07:59* Test Item Value Reference Range Interpretation Comme nts LACTIC ACID (test code = 6685797636) 3.41 mmol/L 0.50-2.20 H Lab Interpretation (test cod e = 61501-2) [facility] Hour Bizqge8319-60-64 11:07:59* Test Item Value Reference Range Interpretation Comme nts LACTIC ACID (test code = 6641269362) 3.41 mmol/L 0.50-2.20 H Lab Interpretation (test cod e = 63720-7) Abnormal [facility] with Itzd5191-28-88 10:28:34* Test Item Value Reference Range Interpretation [...] g/dL 31.6-35.1 L RDW-SD (test code = 38825-0) 67.5 fL 39.0-49.9 H RDW-CV (test code = 788-0) 22.5 % 12.0-15.5 H PLT (test code = 777-3) 245 166-358 MPV (test code = 66418-0) 9.5 fL 9.5-12.9 NRBC/100 WBC (test code = 1900195544) 1.2 0.0-10.0 NRBC x10^3 (test code = 0782158945) 0.11 See_Comment [Automated messa ge] The system which generated this result transmitted reference range: 10*3/?L. The reference range was not used to interpret this result as normal/abnormal. GRAN MAT (NEUT) % (test code = 770-8) 84.8 % IMM GRAN % (test code = 1269581076) 0.80 % LYMPH % (test code = 736-9) 7.3 % MONO % (test code = 5905-5) 7.0 % EOS % (test code = 713-8) 0.0 % BASO % (test code = 706-2) 0.1 % GRAN MAT x10^3(ANC) (test code = 7447853325) 8.03 10*3/uL 1.88-7.09 H IMM GRAN x10^3 (test code = 1786343310) 0.08 10*3/uL 0.00-0.06 H LYMPH x10^3 (test code = 731-0) 0.69 10*3/uL 1.32-3.29 L MONO x10^3 (test code = 742-7) 0.66 10*3/uL 0.33-0.92 EOS x10^3 (test code = 711-2) 0.03-0.39 L BASO x10^3 (test code = 704-7) 0.01-0.07 Lab Interpretation (test code = 78828-0) Abnormal [facility] with [id number] 10:28:34* Test Item Value Reference Range Interpretation [...] g/dL 31.6-35.1 L RDW-SD (test code = 78469-1) 67.5 fL 39.0-49.9 H RDW-CV (test code = 788-0) 22.5 % 12.0-15.5 H PLT (test code = 777-3) 245 166-358 MPV (test code = 49452-7) 9.5 fL 9.5-12.9 NRBC/100 WBC (test code = 7284739911) 1.2 0.0-10.0 NRBC x10^3 (test code = 8630831086) 0.11 See_Comment [Automated messa ge] The system which generated this result transmitted reference range: 10*3/?L. The reference range was not used to interpret this result as normal/abnormal. GRAN MAT (NEUT) % (test code = 770-8) 84.8 % IMM GRAN % (test code = 7613032689) 0.80 % LYMPH % (test code = 736-9) 7.3 % MONO % (test code = 5905-5) 7.0 % EOS % (test code = 713-8) 0.0 % BASO % (test code = 706-2) 0.1 % GRAN MAT x10^3(ANC) (test code = 2886302650) 8.03 10*3/uL 1.88-7.09 H IMM GRAN x10^3 (test code = 2020302611) 0.08 10*3/uL 0.00-0.06 H LYMPH x10^3 (test code = 731-0) 0.69 10*3/uL 1.32-3.29 L MONO x10^3 (test code = 742-7) 0.66 10*3/uL 0.33-0.92 EOS x10^3 (test code = 711-2) 0.03-0.39 L BASO x10^3 (test code = 704-7) 0.01-0.07 Lab Interpretation (test code = 87290-5) Abnormal [facility] with Zows5529-64-49 10:28:34* Test Item Value Reference Range Interpretation [...] g/dL 31.6-35.1 L RDW-SD (test code = 62161-8) 67.5 fL 39.0-49.9 H RDW-CV (test code = 788-0) 22.5 % 12.0-15.5 H PLT (test code = 777-3) 245 166-358 MPV (test code = 79936-7) 9.5 fL 9.5-12.9 NRBC/100 WBC (test code = 7497860404) 1.2 0.0-10.0 NRBC x10^3 (test code = 5805949888) 0.11 See_Comment [Automated messa ge] The system which generated this result transmitted reference range: 10*3/?L. The reference range was not used to interpret this result as normal/abnormal. GRAN MAT (NEUT) % (test code = 770-8) 84.8 % IMM GRAN % (test code = 8570704278) 0.80 % LYMPH % (test code = 736-9) 7.3 % MONO % (test code = 5905-5) 7.0 % EOS % (test code = 713-8) 0.0 % BASO % (test code = 706-2) 0.1 % GRAN MAT x10^3(ANC) (test code = 8865073870) 8.03 10*3/uL 1.88-7.09 H IMM GRAN x10^3 (test code = 1732168771) 0.08 10*3/uL 0.00-0.06 H LYMPH x10^3 (test code = 731-0) 0.69 10*3/uL 1.32-3.29 L MONO x10^3 (test code = 742-7) 0.66 10*3/uL 0.33-0.92 EOS x10^3 (test code = 711-2) 0.03-0.39 L BASO x10^3 (test code = 704-7) 0.01-0.07 Lab Interpretation (test code = 29246-8) Abnormal [facility] (for use with Heparin Infusion)2023-11-24 06:40:52* Test Item Value Reference Range Interpretation Comme nts APTT Patient (test code = 3173-2) Lab Interpretation (test cod e = 82403-0) Normal [facility] (for use with Heparin Infusion)2023-11-24 06:40:52* Test Item Value Reference Range Interpretation Comme nts APTT Patient (test code = 3173-2) Lab Interpretation (test cod e = 83086-9) Normal [facility] (for use with Heparin Infusion)2023-11-24 06:40:52* Test Item Value Reference Range Interpretation Comme nts APTT Patient (test code = 3173-2) Lab Interpretation (test cod e = 37460-9) Normal [facility] GLUCOSE (AUTOMATED)2023-11-24 03:18:58* Test Item Value Reference Range Interpretation Comme nts POCT GLU (test code = 6236557328) 263 mg/dL 70-110 H Lab Interpretation (test cod e = 69570-5) Abnormal [facility] GLUCOSE (AUTOMATED)2023-11-24 03:18:58* Test Item Value Reference Range Interpretation Comme nts POCT GLU (test code = 1297575642) 263 mg/dL 70-110 H Lab Interpretation (test cod e = 99658-6) Abnormal [facility] GLUCOSE (AUTOMATED)2023-11-24 03:18:58* Test Item Value Reference Range Interpretation Comme nts POCT GLU (test code = 9670474714) 263 mg/dL 70-110 H Lab Interpretation (test cod e = 99302-3) Abnormal [facility] GLUCOSE (AUTOMATED)2023-11-23 21:29:57* Test Item Value Reference Range Interpretation Comme nts POCT GLU (test code = 4967275924) 137 mg/dL 70-110 H Lab Interpretation (test cod e = 30906-4) Abnormal [facility] GLUCOSE (AUTOMATED)2023-11-23 21:29:57* Test Item Value Reference Range Interpretation Comme nts POCT GLU (test code = 8199995753) 137 mg/dL 70-110 H Lab Interpretation (test cod e = 76829-1) Abnormal [facility] GLUCOSE (AUTOMATED)2023-11-23 21:29:57* Test Item Value Reference Range Interpretation Comme nts POCT GLU (test code = 1810482641) 137 mg/dL 70-110 H Lab Interpretation (test cod e = 23580-0) [facility] (ALB,T.PRO,BILI T,BU/BC,ALT,AST,ALK PHOS)2023-11-23 17:45:02* Test Item Value Reference Range Interpretation Comme nts TOTAL BILI (test code = 4383123454) 0.7 mg/dL 0.1-1.1 BILI UNCON (test code = 5934334178) 0.1 mg/dL 0.1-1.1 BILI CONJ (test code = 5000056493) 0.0 mg/dL 0.0-0.3 T PROTEIN (test code = 1405189034) 6.2 g/dL 6.3-8.2 L ALBUMIN (test code = 5530331919) 3.5 g/dL 3.5-5.0 ALK PHOS (test code = 5148465591) 274 U/L 34-122 H ALTv (test code = 1742-6) 176 U/L 5-35 H AST(SGOT) (test code = 9180177071) 40 U/L 13-40 Lab Interpretation (test cod e = 39222-4) [facility] (07170[facility] (ALB,T.PRO,BILI T,BU/BC,ALT,AST,ALK PHOS)2023-11-23 17:45:02* Test Item Value Reference Range Interpretation Comme nts TOTAL BILI (test code = 1476535438) 0.7 mg/dL 0.1-1.1 BILI UNCON (test code = 7076598436) 0.1 mg/dL 0.1-1.1 BILI CONJ (test code = 8391992105) 0.0 mg/dL 0.0-0.3 T PROTEIN (test code = 5859616488) 6.2 g/dL 6.3-8.2 L ALBUMIN (test code = 4493495778) 3.5 g/dL 3.5-5.0 ALK PHOS (test code = 2887265238) 274 U/L 34-122 H ALTv (test code = 1742-6) 176 U/L 5-35 H AST(SGOT) (test code = 3407866651) 40 U/L 13-40 Lab Interpretation (test cod e = 37369-4) [facility] (95328[facility] (ALB,T.PRO,BILI T,BU/BC,ALT,AST,ALK PHOS)2023-11-23 17:45:02* Test Item Value Reference Range Interpretation Comme nts TOTAL BILI (test code = 0382850391) 0.7 mg/dL 0.1-1.1 BILI UNCON (test code = 9037052750) 0.1 mg/dL 0.1-1.1 BILI CONJ (test code = 9294339136) 0.0 mg/dL 0.0-0.3 T PROTEIN (test code = 3509086338) 6.2 g/dL 6.3-8.2 L ALBUMIN (test code = 0303608860) 3.5 g/dL 3.5-5.0 ALK PHOS (test code = 8216584208) 274 U/L 34-122 H ALTv (test code = 1742-6) 176 U/L 5-35 H AST(SGOT) (test code = 2093776233) 40 U/L 13-40 Lab Interpretation (test cod e = 18642-1) Abnormal [facility] GLUCOSE (AUTOMATED)2023-11-23 17:19:25* Test Item Value Reference Range Interpretation Comme nts POCT GLU (test code = 4001979616) 137 mg/dL 70-110 H Lab Interpretation (test cod e = 49100-9) Abnormal [facility] GLUCOSE (AUTOMATED)2023-11-23 17:19:25* Test Item Value Reference Range Interpretation Comme nts POCT GLU (test code = 6558823144) 137 mg/dL 70-110 H Lab Interpretation (test cod e = 86654-3) Abnormal [facility] GLUCOSE (AUTOMATED)2023-11-23 17:19:25* Test Item Value Reference Range Interpretation Comme nts POCT GLU (test code = 1755835291) 137 mg/dL 70-110 H Lab Interpretation (test cod e = 61873-4) Abnormal [facility] GLUCOSE (AUTOMATED)2023-11-23 16:51:25* Test Item Value Reference Range Interpretation Comme nts POCT GLU (test code = 9866599781) 145 mg/dL 70-110 H Lab Interpretation (test cod e = 01676-7) Abnormal [facility] GLUCOSE (AUTOMATED)2023-11-23 16:51:25* Test Item Value Reference Range Interpretation Comme nts POCT GLU (test code = 2159858250) 145 mg/dL 70-110 H Lab Interpretation (test cod e = 52143-4) Abnormal [facility] GLUCOSE (AUTOMATED)2023-11-23 16:51:25* Test Item Value Reference Range Interpretation Comme nts POCT GLU (test code = 4674719680) 145 mg/dL 70-110 H Lab Interpretation (test cod e = 28980-6) [facility]2023-11-23 15:36:08* Test Item Value Reference Range Interpretation Comme nts APTT Patient (test code = 3173-2) 44 26-36 H Lab Interpretation (test cod e = 95932-7) [facility]2023-11-23 15:36:08* Test Item Value Reference Range Interpretation Comme nts APTT Patient (test code = 3173-2) 44 26-36 H Lab Interpretation (test cod e = 29857-3) [facility]2023-11-23 15:36:08* Test Item Value Reference Range Interpretation Comme nts APTT Patient (test code = 3173-2) 44 26-36 H Lab Interpretation (test cod e = 40773-6) [facility] Eitwd6110-19-35 15:21:35* Test Item Value Reference Range Interpretation Comme nts LACTIC ACID (test code = 5559107345) 4.80 mmol/L 0.50-2.20 H Lab Interpretation (test cod e = 54854-7) [facility] Whole Auqdh1903-29-70 15:21:35* Test Item Value Reference Range Interpretation Comme nts LACTIC ACID (test code = 7158734268) 4.80 mmol/L 0.50-2.20 H Lab Interpretation (test cod e = 95800-4) [facility] Rqngh6677-93-38 15:21:35* Test Item Value Reference Range Interpretation Comme nts LACTIC ACID (test code = 3985392322) 4.80 mmol/L 0.50-2.20 H Lab Interpretation (test cod e = 20410-4) Abnormal [facility] GLUCOSE (AUTOMATED)2023-11-23 12:49:15* Test Item Value Reference Range Interpretation Comme nts POCT GLU (test code = 9601900316) 162 mg/dL 70-110 H Lab Interpretation (test cod e = 61431-2) Abnormal [facility] GLUCOSE (AUTOMATED)2023-11-23 12:49:15* Test Item Value Reference Range Interpretation Comme nts POCT GLU (test code = 5050731410) 162 mg/dL 70-110 H Lab Interpretation (test cod e = 41646-6) Abnormal [facility] GLUCOSE (AUTOMATED)2023-11-23 12:49:15* Test Item Value Reference Range Interpretation Comme nts POCT GLU (test code = 4527979243) 162 mg/dL 70-110 H Lab Interpretation (test cod e = 45698-1) [facility] Test Item Value Reference Range Interpretation Comme nts MAGNESIUM (test code = 5419427453) 1.9 mg/dL 1.7-2.4 Lab Interpretation (test cod e = 13331-8) Normal [facility] Metabolic Panel (NA, K, CL, CO2, GLUCOSE, BUN, CREATININE, CA)2023-11-23 08:44:42* Test Item Value Reference Range Interpretation Comme nts NA (test code = 5343691549) 136 mmol/L 135-145 K (test code = 7185029093) 3.7 mmol/L 3.5-5.0 CL (test code = 2472843618) 99 mmol/L 98-108 CO2 TOTAL (test code = 6474997203) 31 mmol/L 23-31 AGAP (test code = 9645780963) 6 2-16 BUN (test code = 4876128310) 20 mg/dL 7-23 GLUCOSE (test code = 5136900098) 184 mg/dL 70-110 H CREATININE (test code = 2160-0) 0.66 mg/dL 0.50-1.04 CALCIUM (test code = 1565202364) 7.9 mg/dL 8.6-10.6 L eGFR (test code = 49592-1) 106.4 mL/min/1.73m2 CKD-EPI eGFR (2020). Assuming creatinine has been stable day-to-day for at least three months, the eGFR indicates Category G1 (>= 90 mL/min/1.73 m2) Lab Interpretation (test code = 41720-0) Abnormal [facility]2024-05-06 08:44:42* Test Item Value Reference Range Interpretation Comme nts MAGNESIUM (test code = 0524300858) 1.9 mg/dL 1.7-2.4 Lab Interpretation (test cod e = 18814-8) Normal [facility] Metabolic Panel (NA, K, CL, CO2, GLUCOSE, BUN, CREATININE, CA)2023-11-23 08:44:42* Test Item Value Reference Range Interpretation Comme nts NA (test code = 6029073831) 136 mmol/L 135-145 K (test code = 6148951742) 3.7 mmol/L 3.5-5.0 CL (test code = 7170578400) 99 mmol/L 98-108 CO2 TOTAL (test code = 6196648520) 31 mmol/L 23-31 AGAP (test code = 3474397533) 6 2-16 BUN (test code = 5873204064) 20 mg/dL 7-23 GLUCOSE (test code = 7001303604) 184 mg/dL 70-110 H CREATININE (test code = 2160-0) 0.66 mg/dL 0.50-1.04 CALCIUM (test code = 5379803665) 7.9 mg/dL 8.6-10.6 L eGFR (test code = 55752-0) 106.4 mL/min/1.73m2 CKD-EPI eGFR (2020). Assuming creatinine has been stable day-to-day for at least three months, the eGFR indicates Category G1 (>= 90 mL/min/1.73 m2) Lab Interpretation (test code = 43845-8) [facility] 08:44:42* Test Item Value Reference Range Interpretation Comme nts MAGNESIUM (test code = 6138446577) 1.9 mg/dL 1.7-2.4 Lab Interpretation (test cod e = 38583-0) Normal [facility] Metabolic Panel (NA, K, CL, CO2, GLUCOSE, BUN, CREATININE, CA)2023-11-23 08:44:42* Test Item Value Reference Range Interpretation Comme nts NA (test code = 5839732793) 136 mmol/L 135-145 K (test code = 9125107743) 3.7 mmol/L 3.5-5.0 CL (test code = 9204537124) 99 mmol/L 98-108 CO2 TOTAL (test code = 0959350752) 31 mmol/L 23-31 AGAP (test code = 1200739896) 6 2-16 BUN (test code = 4983770775) 20 mg/dL 7-23 GLUCOSE (test code = 8161879191) 184 mg/dL 70-110 H CREATININE (test code = 2160-0) 0.66 mg/dL 0.50-1.04 CALCIUM (test code = 2592153294) 7.9 mg/dL 8.6-10.6 L eGFR (test code = 22506-8) 106.4 mL/min/1.73m2 CKD-EPI eGFR (2020). Assuming creatinine has been stable day-to-day for at least three months, the eGFR indicates Category G1 (>= 90 mL/min/1.73 m2) Lab Interpretation (test code = 78261-7) Abnormal [facility] (for use with Heparin Infusion)2023-11-23 08:29:39* Test Item Value Reference Range Interpretation Comme [facility] APTT Patient (test code = 3173-2) 49 26-36 H Lab Interpretation (test cod e = 64864-4) Abnormal [facility] (for use with Heparin Infusion)2023-11-23 08:29:39* Test Item Value Reference Range Interpretation Comme [facility] APTT Patient (test code = 3173-2) 49 26-36 H Lab Interpretation (test cod e = 91985-5) Abnormal [facility] (for use with Heparin Infusion)2023-11-23 08:29:39* Test Item Value Reference Range Interpretation Comme [facility] APTT Patient (test code = 3173-2) 49 26-36 H Lab Interpretation (test cod e = 39238-8) Abnormal [facility] with Lwzw2630-44-23 08:24:03* Test Item Value Reference Range Interpretation [...] g/dL 31.6-35.1 L RDW-SD (test code = 99977-9) 66.0 fL 39.0-49.9 H RDW-CV (test code = 788-0) 22.5 % 12.0-15.5 H PLT (test code = 777-3) 204 166-358 MPV (test code = 68437-8) 9.8 fL 9.5-12.9 NRBC/100 WBC (test code = 2953636339) 2.4 0.0-10.0 NRBC x10^3 (test code = 0768482472) 0.17 See_Comment [Automated messa ge] The system which generated this result transmitted reference range: 10*3/?L. The reference range was not used to interpret this result as normal/abnormal. GRAN MAT (NEUT) % (test code = 770-8) 80.3 % IMM GRAN % (test code = 5447945470) 1.70 % LYMPH % (test code = 736-9) 9.5 % MONO % (test code = 5905-5) 8.5 % EOS % (test code = 713-8) 0.0 % BASO % (test code = 706-2) 0.0 % GRAN MAT x10^3(ANC) (test code = 5555940592) 5.77 10*3/uL 1.88-7.09 IMM GRAN x10^3 (test code = 6982581804) 0.12 10*3/uL 0.00-0.06 H LYMPH x10^3 (test code = 731-0) 0.68 10*3/uL 1.32-3.29 L MONO x10^3 (test code = 742-7) 0.61 10*3/uL 0.33-0.92 EOS x10^3 (test code = 711-2) 0.03-0.39 L BASO x10^3 (test code = 704-7) 0.01-0.07 Lab Interpretation (test code = 73167-3) Abnormal [facility] with Lrjb9504-00-45 08:24:03* Test Item Value Reference Range Interpretation [...] g/dL 31.6-35.1 L RDW-SD (test code = 93204-9) 66.0 fL 39.0-49.9 H RDW-CV (test code = 788-0) 22.5 % 12.0-15.5 H PLT (test code = 777-3) 204 166-358 MPV (test code = 64781-1) 9.8 fL 9.5-12.9 NRBC/100 WBC (test code = 8695102274) 2.4 0.0-10.0 NRBC x10^3 (test code = 2913947431) 0.17 See_Comment [Automated messa ge] The system which generated this result transmitted reference range: 10*3/?L. The reference range was not used to interpret this result as normal/abnormal. GRAN MAT (NEUT) % (test code = 770-8) 80.3 % IMM GRAN % (test code = 3372184955) 1.70 % LYMPH % (test code = 736-9) 9.5 % MONO % (test code = 5905-5) 8.5 % EOS % (test code = 713-8) 0.0 % BASO % (test code = 706-2) 0.0 % GRAN MAT x10^3(ANC) (test code = 4959751754) 5.77 10*3/uL 1.88-7.09 IMM GRAN x10^3 (test code = 7459430114) 0.12 10*3/uL 0.00-0.06 H LYMPH x10^3 (test code = 731-0) 0.68 10*3/uL 1.32-3.29 L MONO x10^3 (test code = 742-7) 0.61 10*3/uL 0.33-0.92 EOS x10^3 (test code = 711-2) 0.03-0.39 L BASO x10^3 (test code = 704-7) 0.01-0.07 Lab Interpretation (test code = 80989-3) Abnormal [facility] with Ishq5041-75-15 08:24:03* Test Item Value Reference Range Interpretation [...] g/dL 31.6-35.1 L RDW-SD (test code = 24436-7) 66.0 fL 39.0-49.9 H RDW-CV (test code = 788-0) 22.5 % 12.0-15.5 H PLT (test code = 777-3) 204 166-358 MPV (test code = 35445-0) 9.8 fL 9.5-12.9 NRBC/100 WBC (test code = 4990989926) 2.4 0.0-10.0 NRBC x10^3 (test code = 0792595162) 0.17 See_Comment [Automated messa ge] The system which generated this result transmitted reference range: 10*3/?L. The reference range was not used to interpret this result as normal/abnormal. GRAN MAT (NEUT) % (test code = 770-8) 80.3 % IMM GRAN % (test code = 5967079693) 1.70 % LYMPH % (test code = 736-9) 9.5 % MONO % (test code = 5905-5) 8.5 % EOS % (test code = 713-8) 0.0 % BASO % (test code = 706-2) 0.0 % GRAN MAT x10^3(ANC) (test code = 0263401504) 5.77 10*3/uL 1.88-7.09 IMM GRAN x10^3 (test code = 2163814555) 0.12 10*3/uL 0.00-0.06 H LYMPH x10^3 (test code = 731-0) 0.68 10*3/uL 1.32-3.29 L MONO x10^3 (test code = 742-7) 0.61 10*3/uL 0.33-0.92 EOS x10^3 (test code = 711-2) 0.03-0.39 L BASO x10^3 (test code = 704-7) 0.01-0.07 Lab Interpretation (test code = 79761-9) [facility] Glbxe9374-50-71 08:04:10* Test Item Value Reference Range Interpretation Comme nts LACTIC ACID (test code = 7193444223) 4.15 mmol/L 0.50-2.20 H Lab Interpretation (test cod e = 22500-1) [facility] Gzprb2446-98-20 08:04:10* Test Item Value Reference Range Interpretation Comme nts LACTIC ACID (test code = 0508453212) 4.15 mmol/L 0.50-2.20 H Lab Interpretation (test cod e = 48694-7) [facility] Bxjsh7189-31-54 08:04:10* Test Item Value Reference Range Interpretation Comme nts LACTIC ACID (test code = 6658769271) 4.15 mmol/L 0.50-2.20 H Lab Interpretation (test cod e = 21492-6) [facility] Wbsul8111-72-75 05:11:29* Test Item Value Reference Range Interpretation Comme nts LACTIC ACID (test code = 3527442757) 4.23 mmol/L 0.50-2.20 H Lab Interpretation (test cod e = 66760-8) [facility] Kozmb3797-73-71 05:11:29* Test Item Value Reference Range Interpretation Comme nts LACTIC ACID (test code = 9570368124) 4.23 mmol/L 0.50-2.20 H Lab Interpretation (test cod e = 56110-6) [facility] Ajnqb0740-91-74 05:11:29* Test Item Value Reference Range Interpretation Comme nts LACTIC ACID (test code = 6787635693) 4.23 mmol/L 0.50-2.20 H Lab Interpretation (test cod e = 49199-0) [facility] Acydk8177-55-44 03:16:26* Test Item Value Reference Range Interpretation Comme nts LACTIC ACID (test code = 9978860360) 3.66 mmol/L 0.50-2.20 H Lab Interpretation (test cod e = 45075-6) [facility] Erlkz6462-93-95 03:16:26* Test Item Value Reference Range Interpretation Comme nts LACTIC ACID (test code = 7765756274) 3.66 mmol/L 0.50-2.20 H Lab Interpretation (test cod e = 96765-1) [facility] Kcptm6864-87-50 03:16:26* Test Item Value Reference Range Interpretation Comme nts LACTIC ACID (test code = 2897390695) 3.66 mmol/L 0.50-2.20 H Lab Interpretation (test cod e = 86989-5) [facility] Mwoqx5593-43-35 01:21:56* Test Item Value Reference Range Interpretation Comme nts LACTIC ACID (test code = 0244679123) 3.68 mmol/L 0.50-2.20 H Lab Interpretation (test cod e = 30996-2) [facility] Ogyuo6132-06-22 01:21:56* Test Item Value Reference Range Interpretation Comme nts LACTIC ACID (test code = 7194851810) 3.68 mmol/L 0.50-2.20 H Lab Interpretation (test cod e = 58183-2) [facility] Whole Mfsyl5868-72-67 01:21:56* Test Item Value Reference Range Interpretation Comme nts LACTIC ACID (test code = 0553693632) 3.68 mmol/L 0.50-2.20 H Lab Interpretation (test cod e = 13236-4) Abnormal [facility] GLUCOSE (AUTOMATED)2023-11-23 01:07:13* Test Item Value Reference Range Interpretation Comme nts POCT GLU (test code = 6662216160) 193 mg/dL 70-110 H Lab Interpretation (test cod e = 55991-5) Abnormal [facility] GLUCOSE (AUTOMATED)2023-11-23 01:07:13* Test Item Value Reference Range Interpretation Comme nts POCT GLU (test code = 7764773232) 193 mg/dL 70-110 H Lab Interpretation (test cod e = 17079-8) Abnormal [facility] GLUCOSE (AUTOMATED)2023-11-23 01:07:13* Test Item Value Reference Range Interpretation Comme nts POCT GLU (test code = 9401859960) 193 mg/dL 70-110 H Lab Interpretation (test cod e = 89042-7) [facility] Yuqpc1238-47-14 23:56:10* Test Item Value Reference Range Interpretation Comme nts LACTIC ACID (test code = 7691030201) 3.82 mmol/L 0.50-2.20 H Lab Interpretation (test cod e = 61347-3) [facility] Hybgq9187-59-80 23:56:10* Test Item Value Reference Range Interpretation Comme nts LACTIC ACID (test code = 8200889099) 3.82 mmol/L 0.50-2.20 H Lab Interpretation (test cod e = 29249-8) [facility] Mhjzw0525-58-84 23:56:10* Test Item Value Reference Range Interpretation Comme nts LACTIC ACID (test code = 1351100951) 3.82 mmol/L 0.50-2.20 H Lab Interpretation (test cod e = 11236-7) Abnormal [facility] GLUCOSE (AUTOMATED)2023-11-22 22:00:27* Test Item Value Reference Range Interpretation Comme nts POCT GLU (test code = 1352805045) 218 mg/dL 70-110 H Lab Interpretation (test cod e = 47565-0) Abnormal [facility] GLUCOSE (AUTOMATED)2023-11-22 22:00:27* Test Item Value Reference Range Interpretation Comme nts POCT GLU (test code = 5972179500) 218 mg/dL 70-110 H Lab Interpretation (test cod e = 40784-3) Abnormal [facility] GLUCOSE (AUTOMATED)2023-11-22 22:00:27* Test Item Value Reference Range Interpretation Comme nts POCT GLU (test code = 9307887941) 218 mg/dL 70-110 H Lab Interpretation (test cod e = 82713-6) [facility] Osihc3243-24-81 21:49:39* Test Item Value Reference Range Interpretation Comme nts LACTIC ACID (test code = 2843866468) 4.40 mmol/L 0.50-2.20 H Lab Interpretation (test cod e = 30684-9) [facility] Kuvxk1058-33-22 21:49:39* Test Item Value Reference Range Interpretation Comme nts LACTIC ACID (test code = 9858227221) 4.40 mmol/L 0.50-2.20 H Lab Interpretation (test cod e = 21539-3) [facility] [id number] 21:49:39* Test Item Value Reference Range Interpretation Comme nts LACTIC ACID (test code = 6397525673) 4.40 mmol/L 0.50-2.20 H Lab Interpretation (test cod e = 11230-8) [facility]23-11-22 21:02:20* Test Item Value Reference Range Interpretation Comme nts POCT GLU (test code = [id number]) 208 mg/dL 70-110 H Lab Interpretation (test cod e = 87643-6) [facility]2023-11-22 21:02:20* Test Item Value Reference Range Interpretation Comme nts POCT GLU (test code = 4497477810) 208 mg/dL 70-110 H Lab Interpretation (test cod e = 38379-2) [facility]23-11-22 21:02:20* Test Item Value Reference Range Interpretation Comme nts POCT GLU (test code = 7205590230) 208 mg/dL 70-110 H Lab Interpretation (test cod e = 85086-4) [facility] [id number] 20:01:46* Test Item Value Reference Range Interpretation Comme nts LACTIC ACID (test code = 7441880616) 6.14 mmol/L 0.50-2.20 H Lab Interpretation (test cod e = 68139-1) [facility] [id number] 20:01:46* Test Item Value Reference Range Interpretation Comme nts LACTIC ACID (test code = 8371841155) 6.14 mmol/L 0.50-2.20 H Lab Interpretation (test cod e = 04237-3) [facility] Omzhm4211-31-42 20:01:46* Test Item Value Reference Range Interpretation Comme nts LACTIC ACID (test code = 8969588566) 6.14 mmol/L 0.50-2.20 H Lab Interpretation (test cod e = 76730-0) [facility] [facility] [id number] 18:29:14 Procedure: ? RIGHT UPPER QUADRANT ULTRASOUND [...] [facility] 2023-11-22 18:29:14Procedure: ? RIGHT UPPER [...] ascites.[facility] Transthoracic echo (TTE)2023-11-22 18:16:22* Test Item Value Reference Range Interpretation Comme nts Height (test code = 4428720909) 63 in Weight (test code = 3571533964) 208 lbs Systolic BP (test code = 9116225584) 146 mmHg Diastolic BP (test code = 3403217508) 103 mmHg Heart Rate (test code = 5475365847) 112 bpm BSA (test code = 5461687314) 1.97 m2 LVOT diameter (test code = 1255128910) 2.5 cm LVOT area (test code = 6790539219) 5.00 cm2 LA size (test code = 4761118861) 4.2 cm MV Peak E Evette (test code = 7360034062) 128.5 cm/s MV Peak A Evette (test code = 2381880778) 62.4 cm/s E/A ratio (test code = 0607934226) 2.06 ratio E wave decelartion time (test code = 3733669744) 0.12 s MV Prop V (test code = 9357941401) 38.00 cm/s LAV(MOD-sp4) (test code = 7663420519) 68.70 mL Tapse (test code = 0115416143) 0.7 cm LA Volume Index (BP) (test code = 8081797530) 34.6 mL/m2 LA volume (BP) (test code = 3091483924) 68.0 mL LAV(MOD-sp2) (test code = 6096001574) 66.30 mL Ao peak evette (test code = 7891363850) 124.9 cm/s Ao max PG (test code = 9361980332) 6.20 mm[Hg] AV peak gradient (test code = 6428170977) 6.2 mmHg LVOT stroke volume (test code = 1151755039) 42.40 cm3 LVOT peak evette (test code = 1455113043) 67.8 cm/s LVOT mn grad (test code = 4995241424) 0.9 mmHg AV LVOT peak gradient (test code = 9150891196) 1.84 mmHg LVOT peak VTI (test code = 3662064029) 8.4 cm AV area peak evette (test code = 6042229438) 2.7 cm2 LV V1 mean (test code = 1571077869) 43.20 cm/s TR Peak Evette (test code = 0605022931) 247.7 cm/s Triscuspid Valve Regurgitation Peak Gradient (test code = 9768888661) 24.5 mmHg MR max PG (test code = 9549269749) 85.20 mm[Hg] MR max evette (test code = 6548185456) 461.50 cm/s Mr max evette (test code = 6173872185) 461.5 m/s AV regurgitation pressure 1/2 time (test code = 0075755263) 305.5 ms AI dec slope (test code = 2670812658) 432.10 cm/s2 AI max evette (test code = 9850059975) 450.60 cm/s AI max PG (test code = 7368279167) 81.20 mm[Hg] LVIDD (test code = 4264692916) 5.00 cm Left Ventricular End Diastolic Volume by Teichholz Method (test code = 6885848) 116.6 mL IVS (test code = 2645032335) 0.93 cm Interventricular Septum Diastolic Thickness by 2D (test code = 9996004) 0.93 cm LVPWD (test code = 8002123167) 1.00 cm PW (test code = 1056130771) 1.00 cm 0.6-1.1 EF(Teich) (test code = 5659396863) 33.90 % LVIDS (test code = 0011341162) 4.20 cm Left Ventricular End Systolic Volume by Teichholz Method (test code = 6661935) 77.1 mL FS (test code = 0789622101) 16 % EF - 2D (test code = 76818643) 33.90 % Radiology Study observation (narrative) (test code = 82355-7) LYNDSAY (test code = LYNDSAY) ?Left?Ventricle: Left [...] [facility]2023-[facility]-22 18:16:22* Test Item Value Reference Range Interpretation Comme nts Height (test code = 2390065851) 63 in Weight (test code = 6599086228) 208 lbs Systolic BP (test code = 3476777875) 146 mmHg Diastolic BP (test code = 2329376840) 103 mmHg Heart Rate (test code = 4146522398) 112 bpm BSA (test code = 7816716959) 1.97 m2 LVOT diameter (test code = 8591864590) 2.5 cm LVOT area (test code = 3024261486) 5.00 cm2 LA size (test code = 9400042527) 4.2 cm MV Peak E Evette (test code = 1736110701) 128.5 cm/s MV Peak A Evette (test code = 0216738616) 62.4 cm/s E/A ratio (test code = 7065174576) 2.06 ratio E wave decelartion time (test code = 4624259565) 0.12 s MV Prop V (test code = 7732354596) 38.00 cm/s LAV(MOD-sp4) (test code = 6791583359) 68.70 mL Tapse (test code = 3657451468) 0.7 cm LA Volume Index (BP) (test code = 6729727566) 34.6 mL/m2 LA volume (BP) (test code = 1875599556) 68.0 mL LAV(MOD-sp2) (test code = 6752963057) 66.30 mL Ao peak evette (test code = 2396073294) 124.9 cm/s Ao max PG (test code = 6290144642) 6.20 mm[Hg] AV peak gradient (test code = 2703467597) 6.2 mmHg LVOT stroke volume (test code = 0054827997) 42.40 cm3 LVOT peak evette (test code = 7515331385) 67.8 cm/s LVOT mn grad (test code = 8830874164) 0.9 mmHg AV LVOT peak gradient (test code = 5658652779) 1.84 mmHg LVOT peak VTI (test code = 2703684233) 8.4 cm AV area peak evette (test code = 5042766479) 2.7 cm2 LV V1 mean (test code = 8378445668) 43.20 cm/s TR Peak Evette (test code = 6196862434) 247.7 cm/s Triscuspid Valve Regurgitation Peak Gradient (test code = 4323438328) 24.5 mmHg MR max PG (test code = 8762632920) 85.20 mm[Hg] MR max evette (test code = 8911167955) 461.50 cm/s Mr max evette (test code = 2410798071) 461.5 m/s AV regurgitation pressure 1/2 time (test code = 8647550882) 305.5 ms AI dec slope (test code = 8164136983) 432.10 cm/s2 AI max evette (test code = 9657410237) 450.60 cm/s AI max PG (test code = 4263516784) 81.20 mm[Hg] LVIDD (test code = 7128788313) 5.00 cm Left Ventricular End Diastolic Volume by Teichholz Method (test code = 5209984) 116.6 mL IVS (test code = 7035503337) 0.93 cm Interventricular Septum Diastolic Thickness by 2D (test code = 0376590) 0.93 cm LVPWD (test code = 5350429515) 1.00 cm PW (test code = 9635156738) 1.00 cm 0.6-1.1 EF(Teich) (test code = 2745815381) 33.90 % LVIDS (test code = 8256240651) 4.20 cm Left Ventricular End Systolic Volume by Teichholz Method (test code = 7969481) 77.1 mL FS (test code = 5439756497) 16 % EF - 2D (test code = 66508334) 33.90 % Radiology Study observation (narrative) (test code = 34311-9) LYNDSAY (test code = LYNDSAY) ?Left?Ventricle: Left [...] [facility] Ptjum7125-28-25 17:29:30* Test Item Value Reference Range Interpretation Comme nts LACTIC ACID (test code = 6086743286) 4.00 mmol/L 0.50-2.20 H QUES Lab Interpretation (test cod e = 41046-3) [facility] Nynzy5021-29-72 17:29:30* Test Item Value Reference Range Interpretation Comme nts LACTIC ACID (test code = 0214447175) 4.00 mmol/L 0.50-2.20 H QUES Lab Interpretation (test cod e = 83955-5) [facility] Sgccd2375-07-95 17:29:30* Test Item Value Reference Range Interpretation Comme nts LACTIC ACID (test code = 9128164331) 4.00 mmol/L 0.50-2.20 H QUES Lab Interpretation (test cod e = 86791-9) [facility]SE [facility]AUTOMATED[facility]2023-11-22 17:01:27* Test Item Value Reference Range Interpretation Comme nts POCT GLU (test code = 7912178159) 152 mg/dL 70-110 H Notified Provide r Lab Interpretation (test code = 88411-3) Abnormal [facility] GLUCOSE (AUTOMATED)2023-11-22 17:01:27* Test Item Value Reference Range Interpretation Comme nts POCT GLU (test code = 1019142397) 152 mg/dL 70-110 H Notified Provide r Lab Interpretation (test code = 60036-1) Abnormal [facility] GLUCOSE (AUTOMATED)2023-11-22 17:01:27* Test Item Value Reference Range Interpretation Comme nts POCT GLU (test code = 5131069311) 152 mg/dL 70-110 H Notified Provide r Lab Interpretation (test code = 04146-6) Abnormal [facility] Fmgec8318-78-64 16:28:02* Test Item Value Reference Range Interpretation Comme nts IRON (test code = 6697869429) 44 ug/dL 50-160 L TIBC (test code = 8647522544) 395 ug/dL 250-410 % FE SAT (test code = 9129927747) 11 % 20-50 L Lab Interpretation (test cod e = 05746-4) Abnormal [facility] Fmmfk4738-21-45 16:28:02* Test Item Value Reference Range Interpretation Comme nts IRON (test code = 2730432983) 44 ug/dL 50-160 L TIBC (test code = 9043166420) 395 ug/dL 250-410 % FE SAT (test code = 3928654374) 11 % 20-50 L Lab Interpretation (test cod e = 20201-1) [facility] Evlsl4374-85-61 16:28:02* Test Item Value Reference Range Interpretation Comme nts IRON (test code = 1866457539) 44 ug/dL 50-160 L TIBC (test code = 4432150289) 395 ug/dL 250-410 % FE SAT (test code = 7994911679) 11 % 20-50 L Lab Interpretation (test cod e = 96985-9) Abnormal [facility]. Metabolic Panel (71743)2023-11-22 16:20:58* Test Item Value Reference Range Interpretation Comme nts NA (test code = 6197018916) 135 mmol/L 135-145 K (test code = 2424617234) 4.0 mmol/L 3.5-5.0 Slight hemolysis CL (test code = 8933931941) 108 mmol/L 98-108 CO2 TOTAL (test code = 9674756733) 20 mmol/L 23-31 L AGAP (test code = 4605951497) 7 2-16 BUN (test code = 5966327165) 20 mg/dL 7-23 Slight hemolysis GLUCOSE (test code = 5667201604) 136 mg/dL 70-110 H CREATININE (test code = 2160-0) 0.48 mg/dL 0.50-1.04 L TOTAL BILI (test code = 8168490567) 0.8 mg/dL 0.1-1.1 CALCIUM (test code = 2590569939) 6.7 mg/dL 8.6-10.6 L T PROTEIN (test code = 3196846611) 5.6 g/dL 6.3-8.2 L ALBUMIN (test code = 1137315990) 3.1 g/dL 3.5-5.0 L ALK PHOS (test code = 5621058835) 282 U/L 34-122 H Slight hemolysis ALTv (test code = 1742-6) 196 U/L 5-35 H AST(SGOT) (test code = 2568744275) 56 U/L 13-40 H Slight hemolysis eGFR (test code = 54840-8) 114.8 mL/min/1.73m2 CKD-EPI eGFR (2020). Assuming creatinine has been stable day-to-day for at least three months, the eGFR indicates Category G1 (>= 90 mL/min/1.73 m2) Lab Interpretation (test code = 87864-3) Abnormal [facility] Metabolic Panel (49531)2023-11-22 16:20:58* Test Item Value Reference Range Interpretation Comme nts NA (test code = 6640521302) 135 mmol/L 135-145 K (test code = 8064666407) 4.0 mmol/L 3.5-5.0 Slight hemolysis CL (test code = 8756836489) 108 mmol/L 98-108 CO2 TOTAL (test code = 2176810645) 20 mmol/L 23-31 L AGAP (test code = 1733385098) 7 2-16 BUN (test code = 8494708267) 20 mg/dL 7-23 Slight hemolysis GLUCOSE (test code = 8654462416) 136 mg/dL 70-110 H CREATININE (test code = 2160-0) 0.48 mg/dL 0.50-1.04 L TOTAL BILI (test code = 8585169223) 0.8 mg/dL 0.1-1.1 CALCIUM (test code = 1524971932) 6.7 mg/dL 8.6-10.6 L T PROTEIN (test code = 7019550080) 5.6 g/dL 6.3-8.2 L ALBUMIN (test code = 4033898534) 3.1 g/dL 3.5-5.0 L ALK PHOS (test code = 6082296858) 282 U/L 34-122 H Slight hemolysis ALTv (test code = 1742-6) 196 U/L 5-35 H AST(SGOT) (test code = 2690659565) 56 U/L 13-40 H Slight hemolysis eGFR (test code = 81887-0) 114.8 mL/min/1.73m2 CKD-EPI eGFR (2020). Assuming creatinine has been stable day-to-day for at least three months, the eGFR indicates Category G1 (>= 90 mL/min/1.73 m2) Lab Interpretation (test code = 61708-2) Abnormal [facility] Metabolic Panel (81538)2023-11-22 16:20:58* Test Item Value Reference Range Interpretation Comme nts NA (test code = 5536974710) 135 mmol/L 135-145 K (test code = 4710090831) 4.0 mmol/L 3.5-5.0 Slight hemolysis CL (test code = 3859954163) 108 mmol/L 98-108 CO2 TOTAL (test code = 1788178688) 20 mmol/L 23-31 L AGAP (test code = 6777430769) 7 2-16 BUN (test code = 4815140223) 20 mg/dL 7-23 Slight hemolysis GLUCOSE (test code = 8994659941) 136 mg/dL 70-110 H CREATININE (test code = 2160-0) 0.48 mg/dL 0.50-1.04 L TOTAL BILI (test code = 3100615000) 0.8 mg/dL 0.1-1.1 CALCIUM (test code = 2425538544) 6.7 mg/dL 8.6-10.6 L T PROTEIN (test code = 1994972659) 5.6 g/dL 6.3-8.2 L ALBUMIN (test code = 9501583048) 3.1 g/dL 3.5-5.0 L ALK PHOS (test code = 6801455770) 282 U/L 34-122 H Slight hemolysis ALTv (test code = 1742-6) 196 U/L 5-35 H AST(SGOT) (test code = 4180493491) 56 U/L 13-40 H Slight hemolysis eGFR (test code = 97003-9) 114.8 mL/min/1.73m2 CKD-EPI eGFR (2020). Assuming creatinine has been stable day-to-day for at least three months, the eGFR indicates Category G1 (>= 90 mL/min/1.73 m2) Lab Interpretation (test code = 89707-3) [facility] GKMTPYWKR4090-11-86 15:51:03PROCEDURE: CT ANGIO CHEST WITH CONTRAST - [...] [facility] BFVKRKZUS0105-34-98 15:51:03PROCEDURE: CT ANGIO CHEST WITH CONTRAST - [...] [facility] Whole [place]8370-69-24 14:33:11* Test Item Value Reference Range Interpretation Comme nts LACTIC ACID (test code = 8075080172) 4.04 mmol/L 0.50-2.20 H QUES Lab Interpretation (test cod e = 58396-4) [facility]normal [facility] Whole Vxmef7672-81-73 14:33:11* Test Item Value Reference Range Interpretation Comme nts LACTIC ACID (test code = 8377665704) 4.04 mmol/L 0.50-2.20 H QUES Lab Interpretation (test cod e = 10693-2) [facility]normal [facility] Whole Qzcsu1891-46-83 14:33:11* Test Item Value Reference Range Interpretation Comme nts LACTIC ACID (test code = 0614342369) 4.04 mmol/L 0.50-2.20 H QUES Lab Interpretation (test cod e = 55614-1) Abnormal [facility] GLUCOSE (AUTOMATED)2023-11-22 13:26:51* Test Item Value Reference Range Interpretation Comme nts POCT GLU (test code = 4584542055) 180 mg/dL 70-110 H Notified Provide r Lab Interpretation (test code = 55547-1) Abnormal [facility] GLUCOSE (AUTOMATED)2023-11-22 13:26:51* Test Item Value Reference Range Interpretation Comme nts POCT GLU (test code = 1240715178) 180 mg/dL 70-110 H Notified Provide r Lab Interpretation (test code = 84113-9) Abnormal [facility] GLUCOSE (AUTOMATED)2023-11-22 13:26:51* Test Item Value Reference Range Interpretation Comme nts POCT GLU (test code = 4647480212) 180 mg/dL 70-110 H Notified Provide r Lab Interpretation (test code = 59635-0) [facility] SH[facility] 2+ VW [id number] 09:05:30 Exam: XR SHOULDER 2+ VW RIGHT, [...] [facility] 2+ VW [id number] 09:05:30 Exam: XR SHOULDER 2+ VW RIGHT, [...] [facility] LOWER EXTREMITY VEIN WITH COMPRESSION BILATERAL (ONLY [...] on the right. No D[facility]left.[facility] WITH COMPRESSION BILATERAL (ONLY [...] theleft.[facility] Whole Blood 2023-11-22 08:16:23* Test Item Value Reference Range Interpretation Comme nts LACTIC ACID (test code = 2330062631) 3.93 mmol/L 0.50-2.20 H Lab Interpretation (test cod e = 42243-5) [facility]normal [facility] Whole Hctwb1027-21-13 08:16:23* Test Item Value Reference Range Interpretation Comme nts LACTIC ACID (test code = 2131332368) 3.93 mmol/L 0.50-2.20 H Lab Interpretation (test cod e = 65780-6) [facility]normal [facility] Whole Hyfti9687-02-37 08:16:23* Test Item Value Reference Range Interpretation Comme nts LACTIC ACID (test code = 1860727024) 3.93 mmol/L 0.50-2.20 H Lab Interpretation (test cod e = 28430-8) [facility]normal [facility]uda[facility]thrombin Time / [id number] 05:00:31* Test Item Value Reference Range Interpretation Comme [facility] PROTIME PATIENT (test code = 5964-2) 15.4 10.1-12.6 H INR (test code = 6301-6) 1.3 Normal INR <1.1; Warfarin Therapeutic range 2.0 to 3.0 or 2.5 to 3.5, depending upon the indications. Lab Interpretation (test code = 54391-0) [facility]normal [facility] BudaaPTT2024-05-05 05:00:31* Test Item Value Reference Range Interpretation Comme [facility] APTT Patient (test code = 3173-2) 27 26-36 LYNDSAY (test code = LYNDSAY) The [facility] patient population mean normal value for aPTT is 30 seconds. Lab Interpretation (test code = 27170-5) Normal [facility]uda[facility]thrombin Time / [id number] 05:00:31* Test Item Value Reference Range Interpretation Comme [facility] PROTIME PATIENT (test code = 5964-2) 15.4 10.1-12.6 H INR (test code = 6301-6) 1.3 Normal INR <1.1; Warfarin Therapeutic range 2.0 to 3.0 or 2.5 to 3.5, depending upon the indications. Lab Interpretation (test code = 32491-9) [facility]normal [facility] BudaaPTT2024-05-05 05:00:31* Test Item Value Reference Range Interpretation Comme nts APTT Patient (test code = 3173-2) 36 LYNDSAY (test code = LYNDSAY) The [facility] patient population mean normal value for aPTT is 30 seconds. Lab Interpretation (test code = 84409-0) Normal [facility]udaProthrombin Time / BLL4269-07-22 05:00:31* Test Item Value Reference Range Interpretation Comme nts PROTIME PATIENT (test code = 5964-2) 15.4 10.1-12.6 H INR (test code = 6301-6) 1.3 Normal INR <1.1; Warfarin Therapeutic range 2.0 to 3.0 or 2.5 to 3.5, depending upon the indications. Lab Interpretation (test code = 14344-0) [facility]normal [facility]aaPTT2024-05-05 05:00:31* Test Item Value Reference Range Interpretation Comme [facility] APTT Patient (test code = 3173-2) LYNDSAY (test code = LYNDSAY) The [facility] patient population mean normal value for aPTT is 30 seconds. Lab Interpretation (test code = 18969-4) Normal [facility]udaThyroid Stimulating Cgoltbj1555-17-41 04:25:31 * Test Item Value Reference Range Interpretation Comme nts TSH (test code = 4339064808) 5.26 0.45-4.70 H Lab Interpretation (test cod e = 25344-7) [facility]normal [facility]udaThyroid Stimulating Teskdpf8208-58-48 04:25:31 * Test Item Value Reference Range Interpretation Comme nts TSH (test code = 3719924288) 5.26 0.45-4.70 H Lab Interpretation (test cod e = 29194-2) Abnormal [facility]udaThyroid Stimulating Lekuspe6242-68-01 04:25:31 * Test Item Value Reference Range Interpretation Comme nts TSH (test code = 4187659257) 5.26 0.45-4.70 H Lab Interpretation (test cod e = 26091-9) [facility] Gatc9861-79-58 04:18:14Megan Rondon MD ? ? 11/21/2023 11:18 [...] of separately billable procedures and treating other patients.[facility] [id number] 04:11:28* Test Item Value Reference Range Interpretation Comme nts FREE T4 (test code = 0795802032) 1.07 0.78-2.20 Lab Interpretation (test cod e = 05889-5) Normal [facility] C41862-07-09 04:11:28* Test Item Value Reference Range Interpretation Comme nts FREE T4 (test code = 8492573995) 1.07 0.78-2.20 Lab Interpretation (test cod e = 85925-8) Normal [facility] U58061-02-43 04:11:28* Test Item Value Reference Range Interpretation Comme nts FREE T4 (test code = 3026308558) 1.07 0.78-2.20 Lab Interpretation (test cod e = 41755-2) Normal [facility] CHEST 1 [id number] 03:22:56Exam: Chest (1 View), 11/21/2023 9:15 PM. [...] seen.[facility]XR CHEST 1 UH9247-06-30 03:22:56Exam: Chest (1 View), 11/21/2023 9:15 PM. [...] [facility]udaBLOOD GHLAVYG6482-96-17 07:00:10* Test Item Value Reference Range Interpretation Comme nts CULTURE (BEAKER) (test code = 1095) No growth in 5 days XR KNEE 3 VIEWS LEFT Non-Weight Xeegonp0066-31-12 09:27:00XR KNEE 3 VIEWS LEFT CLINICAL INDICATION: S/p fall COMPARISON: None FINDINGS: 3views of the left kne e. There is no fracture or malalignment. The femorotibial andfemoropatellar joint spaces are intact. No joint fluid is demonstrated.Surrounding soft tissues are unremarkable. Scattered atheroscleroticvascular calcifications.[facility] Non-Weight Ryqhjqu0127-32-70 09:27:00XR KNEE 3 VIEWS LEFT CLINICAL INDICATION: S/p fall COMPARISON: None FINDINGS: 3views of the left knee. There is no fracture or malalignment. The femorotibial andfemoropatellar joint spaces are intact. No joint fluid is demonstrated.Surrounding soft tissues are unremarkable. Scattered atheroscleroticvascular calcifications.[facility]XR KNEE 3 VIEWS SZIU4453-16-72 09:27:00 [facility] : 1970 Sex: FXR KNEE 3 VIEWS LEFT CLINICAL INDICATION: S/p fall COMPARISON: NoneFINDINGS: 3views of the left knee.There is no fracture or malalignment. The femorotibial andfemoropatellar joint spaces are intact.No joint fluid is demonstrated.Surrounding soft tissues are unremarkable. Scattered atheroscleroticvascular calcifications.IMPRESSION: No acute fracture or malalignment of the knee Electronically Signed By: Maxim Sultana09/08/2023 09:29 CDTWorkstation Name: [id number] ealje2518-59-20 08:53:50* Test Item Value Reference Range Interpretation Comme [facility] POC-Glucose Meter (test code = 1538) 101 mg/dL 70-110 : TESTED AT [place] [id number] [facility], [address]: Cornetist/Workers Compensation Specialist ID = [id number] for Umeh, [place] Lab Interpretation (test code = 38878-5) Normal [facility] ycdfd5574-55-41 08:53:50* Test Item Value Reference Range Interpretation Comme [facility] POC-Glucose Meter (test code = 1538) 101 mg/dL 70-110 : [facility]ED [facility] [address] [facility], [address]: Cornetist/Workers Compensation Specialist ID = [id number] for Umeh, [place] Lab Interpretation (test code = 53399-2) Normal [facility]PO[facility]GLUCOSE SLZJN6809-54-50 08:53:50* Test Item Value Reference Range Interpretation Comme nts POC-GLUCOSE METER (BEAKER) (test code = 1538) 101 mg/dL 70-110 : TESTED AT [facility] [address] [place] [place], [address]: Cornetist/Workers Compensation Specialist ID = [id number] for Marie Delacruz BASIC METABOLIC DQJBK7837-96-89 05:40:45* Test Item Value Reference Range Interpretation [...] GFR is not applicable for dialysis patients Cornetist ID - [id number] 05:40:45* Test Item Value Reference Range Interpretation Comme nts MAGNESIUM (BEAKER) (test cod e = 627) 2.1 mg/dL 1.6-2.6 Cornetist ID - BKAWVLDHGFZKURX1762-59-32 05:40:45* Test Item Value Reference Range Interpretation Comme nts PHOSPHORUS (BEAKER) (test co de = 604) 5.0 mg/dL 2.3-4.7 H Cornetist ID - ADMINCBC W/PLT COUNT & AUTO UVAEYZGQIPNV8713-19-47 04:49:23* Test Item Value Reference Range Interpretation [...] code = 2801) 0.40 % 0.00-1.00 POCT-GLUCOSE DPGKY2679-03-97 21:40:23* Test Item Value Reference Range Interpretation Comme nts POC-GLUCOSE METER (BEAKER) (test code = 1538) 144 mg/dL 70-110 H : [facility] [address] [facility], [address]: Cornetist/Workers Compensation Specialist ID = [id number] for Baeza, Diana Venous doppler legs wldtzzuso1006-39-84 14:27:12PV LAB - Lower Extremities DVT Study Demographics Patient Name YUE ROMERO Date of Study 09/07/2023 ESTELLE Age 53 Visit Number [id number] Gender Female Accession Number [id number] Dateof 1970 Referring EDWARD HINSONMAN Room Number 2263 Physician Nickel Operator Adalberto Wood Interpreting John Solorio, Physician FellowProcedureType [...] in cm/s ; Diameters are measured in [facility] legs kiehftjep3472-07-83 14:27:12PV LAB - Lower Extremities DVT Study Demographics Patient Name YUE ROMERO Date of Study 09/07/2023 ESTELLE Age 53 Visit Number [id number] Gender Female Accession Number [id number] Date of 1970 Referring EDWARD FERRER Room Number 2263 Physician Nickel Operator Adalberto Wood Interpreting John Solorio Physician FellowProcedureType [...] in cm/s ; Diameters are [facility] in [facility] SEGMBFUKR7430-96-78 04:05:54* Test Item Value Reference Range Interpretation Comme nts MAGNESIUM (BEAKER) (test code = 627) 2.0 mg/dL 1.6-2.6 Specimen sligh tly hemolyzed Cornetist ID - MADELINE VNQGKVLBSDI5894-06-27 04:05:54* Test Item Value Reference Range Interpretation Comme nts PHOSPHORUS (BEAKER) (test code = 604) 4.5 mg/dL 2.3-4.7 Specimen sligh tly hemolyzed Cornetist ID - MADELINE WBASIC METABOLIC [id number] 04:05:54* Test Item Value Reference Range Interpretation [...] GFR is not applicable for dialysis patients Cornetist ID - MADELINE WCBC W/PLT COUNT & AUTO [id number] 03:40:48* Test Item Value Reference Range Interpretation [...] code = 2801) 0.30 % 0.00-1.00 POCT-GLUCOSE [id number] 21:28:35* Test Item Value Reference Range Interpretation Comme nts POC-GLUCOSE METER (BEAKER) (test code = 1538) 127 mg/dL 70-110 H : TESTED AT [address], [address]: Cornetist/[employer] Specialist ID = [id number] for Rosa Morinbubba POCT-GLUCOSE [id number] 18:49:21* Test Item Value Reference Range Interpretation Comme nts POC-GLUCOSE METER (BEAKER) (test code = 1538) 122 mg/dL 70-110 H : TESTED AT [address], [address]: Cornetist/Workers Compensation Specialist ID = [id number] for Tyrell Lauren POCT-GLUCOSE [id number] 13:27:27* Test Item Value Reference Range Interpretation Comme nts POC-GLUCOSE METER (BEAKER) (test code = 1538) 130 mg/dL 70-110 H : TESTED AT [address], [address]: Cornetist/Workers Compensation Specialist ID = [id number] for Lauren Santillan [id number] 09:09:14* Test Item Value Reference Range Interpretation Comme nts MAGNESIUM (BEAKER) (test cod e = 627) 2.2 mg/dL 1.6-2.6 [id number] 09:09:14* Test Item Value Reference Range Interpretation Comme nts PHOSPHORUS (BEAKER) (test co de = 604) 4.8 mg/dL 2.3-4.7 H BASIC METABOLIC [id number] 09:09:14* Test Item Value Reference Range Interpretation [...] is not applicable for dialysis patients POCT-GLUCOSE [id number] 08:33:30* Test Item Value Reference Range Interpretation Comme [facility] POC-GLUCOSE METER (BEAKER) (test code = 1538) 132 mg/dL 70-110 H : TESTED AT [facility] [address] [facility], [address]: Cornetist/Workers Compensation Specialist ID = [id number] for Lauren Santillan CBC W/PLT COUNT & AUTO [id number] 05:47:59* Test Item Value Reference Range Interpretation [...] code = 2801) 0.40 % 0.00-1.00 POCT-GLUCOSE [id number] 21:35:37* Test Item Value Reference Range Interpretation Comme nts POC-GLUCOSE METER (BEAKER) (test code = 1538) 129 mg/dL 70-110 H : TESTED AT [facility] [address] [place] [place], [address]: Cornetist/Workers Compensation Specialist ID = [id number] for MikelRyan MR Brain Without & With IV [id number] 15:49:58MR BRAIN WITH & WITHOUT IV CONTRAST [...] limits. No obstructive paranasal sinus disease. Additionalfindings: None.[facility] Without & With IV [id number] 15:49:58MR BRAIN WITH & WITHOUT IV CONTRAST [...] limits. No obstructive paranasal sinus disease. Additionalfindings: None.[facility]MR [facility]IN WITH & WITHOUT IV [id number] 15:49:58 [facility] 1970 Sex: FMR BRAIN WITH & WITHOUT IV CONTRASTINDICATION: Brain mass or lesionTechnique: MRI of the brain utilizing axial T1, T2, FLAIR, GRE, DWI,sagittal T1; and postgadolinium axial, sagittal, and coronal T1-weightedimages.COMPARISON: NoneFINDINGS:Brain parenchyma is normal in morphology. Midline structures arenormally developed. No restricted diffusion to suggest recent ischemicinsult. No abnormal s usceptibility.Scattered T2/FLAIR hyperintense foci within the periventricular andsubcortical white matter are nonspecific, however, statisticallyrepresent chronic microvascular ischemic changes.No hydrocephalus.Orbits are within normal limits.No obstructive paranasal sinus disease.Additional findings: None.IMPRESSION:Unremarkable MRI of the brain.Electronically Signed By: Zeinab Dempsey415:53 CDTWorkstation Name: [id number] METER 2023-09-05 08:34:25* Test Item Value Reference Range Interpretation Comme nts POC-GLUCOSE METER (BEAKER) (test code = 1538) 115 mg/dL 70-110 H : TESTED AT [facility] [address] [facility], [address]: Cornetist/Workers Compensation Specialist ID = [id number] for DOMINGA AMADOR BASIC METABOLIC [id number] 06:06:56* Test Item Value Reference Range Interpretation [...] GFR is not applicable for dialysis patients Cornetist ID - [id number] 06:06:56* Test Item Value Reference Range Interpretation Comme nts MAGNESIUM (BEAKER) (test cod e = 627) 2.2 mg/dL 1.6-2.6 Cornetist ID - [id number] 06:06:56* Test Item Value Reference Range Interpretation Comme nts PHOSPHORUS (BEAKER) (test co de = 604) 3.8 mg/dL 2.3-4.7 Cornetist ID - ADMINCBC W/PLT COUNT & AUTO [id number] 05:29:32* Test Item Value Reference Range Interpretation [...] code = 2801) 0.50 % 0.00-1.00 POCT-GLUCOSE [id number] 04:55:18* Test Item Value Reference Range Interpretation Comme nts POC-GLUCOSE METER (BEAKER) (test code = 1538) 99 mg/dL 70-110 : TESTED AT [place] [id number] [facility], [address]: Cornetist/Workers Compensation Specialist ID = [id number] for Rosa Morinn POCT-GLUCOSE [id number] 21:49:23* Test Item Value Reference Range Interpretation Comme nts POC-GLUCOSE METER (BEAKER) (test code = 1538) 124 mg/dL 70-110 H : TESTED AT [facility] [address] [facility], [address]: Cornetist/Workers Compensation Specialist ID = [id number] for Rosa Morinn POCT-GLUCOSE [id number] 15:55:53* Test Item Value Reference Range Interpretation Comme nts POC-GLUCOSE METER (BEAKER) (test code = 1538) 126 mg/dL 70-110 H : TESTED AT [place] [id number] [facility], [address]: Cornetist/Workers Compensation Specialist ID = [id number] for JeremiahTramaine [id number] 12:37:56* Test Item Value Reference Range Interpretation Comme nts PROCALCITONIN (BEAKER) (test code = 3036) < ng/mL <0.05 SEPSIS RISK (ng/mL)Low: 0.05-0.50Intermediate: 0.51-2.00High: >=2.01SARS- CoV2/Influenza/RSV [id number] 12:18:09* Test Item Value Reference Range Interpretation Comments SARS-COV2/RT-PCR (test code = 01691-7) Negative Negative The SARS-CoV-2 target nucleic acids [...] provider. Influenza A RT-PCR (test code = 67105-9) Negative Negative The Flu A target nucleic acids are not detected in this specimen. Influenza B RT-PCR (test code = 03997-0) Negative Negative The Flu B target nucleic acids are not detected in this specimen. RSV by RT-PCR (test code = 08945-8) Negative Negative The RSV target nucleic acids [...] SARS-CoV-2/Flu/RSV by their healthcare provider. Results from [facility] Xpert Xpress SARS-CoV-2/Flu/RSV test should [...] the Act. Fact Sheet for Healthcare Providers:https://w [employer].com/Docu ments/Xpert%20Xpres s%20SARS%20CoV-2/Fa ct%20Sheets/302-390 2%00REZL-FAR-9%20HE ALTHCARE%20PROVIDER S%20FACT%20SHEET.pd f Fact Sheet for Healthcare Patients:https://maria elena [employer]/Docum ents/Xpert%20Xpress %20SARS%20Cov-2/Fac t%20Sheets/302-3801 %06DULZ-YDZ-5%20PAT IENT%20FACT%20SHEET .pdf Lab Interpretation (test code = 14807-9) [facility] [id number] 12:18:09* Test Item Value Reference Range Interpretation Comments SARS-COV2/RT-PCR (test code = 50426-7) Negative Negative The SARS-CoV-2 target nucleic acids [...] provider. Influenza A RT-PCR (test code = 11813-4) Negative Negative The Flu A target nucleic acids are not detected in this specimen. Influenza B RT-PCR (test code = 30541-7) Negative Negative The Flu B target nucleic acids are not detected in this specimen. RSV by RT-PCR (test code = 95850-2) Negative Negative The RSV target nucleic acids [...] the Act. Fact Sheet for Healthcare Providers:https://w ww.Loved.la.[employer]/Docu ments/Xpert%20Xpres s%20SARS%20CoV-2/Fa ct%20Sheets/302-390 2%00RQZA-EYM-0%20HE ALTHCARE%20PROVIDER S%20FACT%20SHEET.pd f Fact Sheet for Healthcare Patients:https://ww w.[employer]olianluo/Docum ents/Xpert%20Xpress %20SARS%20Cov-2/Fac t%20Sheets/302-3801 %81SPPS-END-5%20PAT IENT%20FACT%20SHEET .pdf Lab Interpretation (test code = 38351-5) [facility] [id number] 12:18:09* Test Item Value Reference Range Interpretation Comme nts SARS-COV2/RT-PCR (test code = 5097769) Negative Negative The SARS-CoV-2 t arget nucleic [...] provider. INFLUENZA A RT-PCR (test code = 3324088) Negative Negative The Flu A target nucleic acids are not detected in this specimen. INFLUENZA B RT-PCR (test code = 5507222) Negative Negative The Flu B target nucleic acids are not detected in this specimen. RSV RT-PCR (test code = 8821970) Negative Negative The RSV target n ucleic [...] SARS-CoV-2/Flu/RSV by their healthcare provider. Results from [facility] Xpert Xpress SARS-CoV-2/Flu/RSV test should [...] 564(g) of the Act.Fact Sheet for Healthcare Providers:https://www.[employer]ianluo/Documents/Xpert%20Xpress%20SARS%20CoV-2/Fact%2 0Sheets/3023902%91TWOO-MPI-7%20HEALTHCARE%20PROVIDERS%20FACT%20SHEET.pdfFact Sheet for Healthcare Patients:https://ww w.[employer]olianluo/Documents/Xpert%20Xpress%20SARS%20Cov-2/Fact%20Sheets/302-7951%20S ARS-COV-2%20PATIENT%20FACT%20SHEET.pdfPOCT-GLUCOSE [id number] 11:08:35* Test Item Value Reference Range Interpretation Comme [facility] POC-GLUCOSE METER (LATOYA) (test code = 1538) 111 mg/dL 70-110 H : TESTED AT [facility] [address] [facility], [address]: Cornetist/Workers Compensation Specialist ID = [id number] for Tramaine Daniels POCT-GLUCOSE [id number] 08:16:42* Test Item Value Reference Range Interpretation Comme nts POC-GLUCOSE METER (LATOYA) (test code = 1538) 108 mg/dL 70-110 : TESTED AT [facility] [address] [facility], [address]: Cornetist/Workers Compensation Specialist ID = [id number] for Beata Vargas MR spine lumbar without IV [id number] 07:58:49MR LUMBAR SPINE WITHOUT IV CONTRAST, MR [...] Posterior ligament ossifications at the calcifications at K72-X24euudpzt moderate spinal canal stenosisPosterior disc osteophyte at the T11-T12 level causing mild spinal canalstenosis The spinal cord is normal in caliber and signal intensity. There is no significant foraminal or spinal canal stenosis. 2.1 x 2.3 cm left adrenal nodule, incompletely characterized Paraspinal soft tissues are unremarkable. Lumbar spine: Postoperative changes from posterior decompression at the L3 and E4pymttp. A 1.3 x 1.5 cm (AP by [...] [facility] IV [id number] 07:58:49MR LUMBAR SPINE WITHOUT IV CONTRAST, MR [...] Posterior ligament ossifications at the calcifications at A69-E15orgaxmx moderate spinal canal stenosisPosterior disc osteophyte at the T11-T12 level causing mild spinal canalstenosis The spinal cord is normal in caliber and signal intensity. There is no significant foraminal or spinal canal stenosis. 2.1 x 2.3 cm left adrenal nodule, incompletely characterized Paraspinal soft tissues are unremarkable. Lumbar spine: Postoperative changes from posterior decompression at the L3 and T6ctanzw. A 1.3 x 1.5 cm (AP by [...] [facility]MR [facility] without IV julspdsj3434-27-39 07:58:49MR LUMBAR SPINE WITHOUT IV CONTRAST, MR [...] Posterior ligament ossifications at the calcifications at K51-A44zdpnbmt moderate spinal canal stenosisPosterior disc osteophyte at the T11-T12 level causing mild spinal canalstenosis The spinal cord is normal in caliber and signal intensity. There is no significant foraminal or spinal canal stenosis. 2.1 x 2.3 cm left adrenal nodule, incompletely characterized Paraspinal soft tissues are unremarkable. Lumbar spine: Postoperative changes from posterior decompression at the L3 and T2mwbdmz. A 1.3 x 1.5 cm (AP by [...] [facility] without IV [id number] 07:58:49MR LUMBAR SPINE WITHOUT IV CONTRAST, MR [...] Posterior ligament ossifications at the calcifications at W98-E56dyvahqw moderate spinal canal stenosisPosterior disc osteophyte at the T11-T12 level causing mild spinal canalstenosis The spinal cord is normal in caliber and signal intensity. There is no significant foraminal or spinal canal stenosis. 2.1 x 2.3 cm left adrenal nodule, incompletely characterized Paraspinal soft tissues are unremarkable. Lumbar spine: Postoperative changes from posterior decompression at the L3 and G3yyduzn. A 1.3 x 1.5 cm (AP by [...] [facility]MR [facility] cervical without IV kftbqgmf0294-62-84 07:58:49MR LUMBAR SPINE WITHOUT IV CONTRAST, MR [...] Posterior ligament ossifications at the calcifications at C31-A47ycmgjve moderate spinal canal stenosisPosterior disc osteophyte at the T11-T12 level causing mild spinal canalstenosis The spinal cord is normal in caliber and signal intensity. There is no significant foraminal or spinal canal stenosis. 2.1 x 2.3 cm left adrenal nodule, incompletely characterized Paraspinal soft tissues are unremarkable. Lumbar spine: Postoperative changes from posterior decompression at the L3 and B9plzlhj. A 1.3 x 1.5 cm (AP by [...] [facility] cervical without IV [id number] 07:58:49MR LUMBAR SPINE WITHOUT IV CONTRAST, MR [...] Posterior ligament ossifications at the calcifications at I71-W63hhkwriq moderate spinal canal stenosisPosterior disc osteophyte at the T11-T12 level causing mild spinal canalstenosis The spinal cord is normal in caliber and signal intensity. There is no significant foraminal or spinal canal stenosis. 2.1 x 2.3 cm left adrenal nodule, incompletely characterized Paraspinal soft tissues are unremarkable. Lumbar spine: Postoperative changes from posterior decompression at the L3 and I7mzhgnb. A 1.3 x 1.5 cm (AP by [...] [facility] CERVICAL SP[facility] WITHOUT IV [id number] 07:58:49 [facility] 1970 Sex: FMR [...] ligament ossifications at the calcifications at T10- D93hriyxlv moderate spinal canal stenosisPosterior disc osteophyte at the T11- T12 level causing mild spinal canalstenosisThe spinal cord is normal in caliber and signal intensity. There is no significant foraminal or spinal canal stenosis.2.1 x 2.3 cm left adrenal nodule, incompletely characterizedParaspinal soft tissues are unremarkable.Lumbar spine:Postoperative changes from posterior decompression at the L3 and U5oiuncs. A 1.3 x 1.5 cm (AP by [...] Signed By: Maxim Sultana09/04/2023 08:00 CDTWorkstation Name: [id number] THORACIC SPINE WITHOUT IV [id number] 07:58:49 [facility] : 1970 Sex: FMR [...] ligament ossifications at the calcifications at T10- T75mjnvria moderate spinal canal stenosisPosterior disc osteophyte at the T11- T12 level causing mild spinal canalstenosisThe spinal cord is normal in caliber and signal intensity. There is no significant foraminal or spinal canal stenosis.2.1 x 2.3 cm left adrenal nodule, incompletely characterizedParaspinal soft tissues are unremarkable.Lumbar spine:Postoperative changes from posterior decompression at the L3 and C0mkiabp. A 1.3 x 1.5 cm (AP by [...] Signed By: Maxim Sultana09/04/2023 08:00 CDTWorkstation Name: [id number] LUMBAR SPINE WITHOUT IV [id number] 07:58:49 [facility] : 1970 Sex: FMR [...] ligament ossifications at the calcifications at T10- H43vkfdnra moderate spinal canal stenosisPosterior disc osteophyte at the T11- T12 level causing mild spinal canalstenosisThe spinal cord is normal in caliber and signal intensity. There is no significant foraminal or spinal canal stenosis.2.1 x 2.3 cm left adrenal nodule, incompletely characterizedParaspinal soft tissues are unremarkable.Lumbar spine:Postoperative changes from posterior decompression at the L3 and E7qvvzip. A 1.3 x 1.5 cm (AP by [...] Signed By: Maxim Sultana09/04/2023 08:00 CDTWorkstation Name: [id number] 07:46:14 * Test Item Value Reference Range Interpretation Comme nts FERRITIN (BEAKER) (test code = 361) 31.77 ng/mL 5.00-275.00 Cornetist ID - hgIRON, TIBC, % SAT. (WITHOUT FERRITIN)2023-09-04 07:24:52* Test Item Value Reference Range Interpretation Comme nts IRON (BEAKER) (test code = 547) 22.0 ug/dL 40.0-160.0 L TOTAL IRON BINDING CAPACITY (BEAKER) (test code = 769) 369 ug/dL 250-450 IRON % SATURATION (2) (BEAKE R) (test code = 2590) 6 % 20-55 L Cornetist ID - hgCT spine thoracic without IV [id number] 05:42:45EXAM: CT THORACIC SPINE WITHOUT IV CONTRAST, [...] Bones/alignment: Age- indeterminate nondisplaced fracture of the U3vwivchapp elements, predominantly involving the lamina and pinusprocess.. [...] Postoperative changes in themidline posterior lumbar soft tissues.[facility] IV blhckngq2114-16-09 05:42:45EXAM: CT THORACIC SPINE WITHOUT IV CONTRAST, [...] Bones/alignment: Age- indeterminate nondisplaced fracture of the C8fxsmywffq elements, predominantly involving the lamina and pinusprocess.. [...] Postoperative changes in themidline posterior lumbar soft tissues.[facility] HospitalCT spine thoracic without IV contrast 2023-09-04 [...] Bones/alignment: Age- indeterminate nondisplaced fracture of the K8waocovini elements, predominantly involving the lamina and pinusprocess.. [...] Postoperative changes in themidline posterior lumbar soft tissues.[facility] HospitalCT spine lumbar without IV [id number] 05:42:45EXAM: CT THORACIC SPINE WITHOUT IV CONTRAST, [...] Bones/alignment: Age- indeterminate nondisplaced fracture of the K8ajpzgbfvc elements, predominantly involving the lamina and pinusprocess.. [...] Postoperative changes in themidline posterior lumbar soft tissues.[facility] HospitalCT LUMBAR SPINE WITHOUT IV [id number] 05:42:45[facility]UE[facility]ATHER ESTELLE : 1970 Sex: FEXAM: CT [...] spine:Bones/alignment: Age- indeterminate nondisplaced fracture of the T6odmislhsn elements, predominantly i nvolving the lamina and [...] Signed By: Suzan Weaver09/04/2023 05:45 CDTWorkstation Name: [id number] THORACIC SPINE WITHOUT IV [id number] 05:42:45 [facility] 1970 Sex: FEXAM: [...] spine:Bones/alignment: Age- indeterminate nondisplaced fracture of the E7qliqfpcch elements, predominantly i nvolving the lamina and [...] Signed By: Suzan Weaver09/04/2023 05:45 CDTWorkstation Name: [id number] 2023-09-04 04:44:34* Test Item Value Reference Range Interpretation Comme nts FIBRINOGEN LEVEL (BEAKER) (t est code = 658) 410 mg/dl 225-434 Urinalysis without Lncctbfnfuz5490-47-07 03:58:52* Test Item Value Reference Range Interpretation Comme nts Color, UA (test code = 5778-6) Light Yellow Clarity, UA (test code = 5767-9) Hazy Specific [place], UA (test code = 5811-5) 1.017 1.001-1.035 pH, UA (test code = 5803-2) 6 5.0-8.0 Protein, UA (test code = 10931-4) 10 mg/dL Negative A Glucose, UA (test code = 365) Negative Negative Ketones, UA (test code = 2514-8) Trace Negative A Bilirubin, UA (test code = 15961-2) Negative Negative Blood, UA (test code = 36887-4) Trace Negative A Nitrite, UA (test code = 5802-4) Negative Negative Leukocytes, UA (test code = 5799-2) Negative Negative Urobilinogen, UA (test code = 68589-6) 0.2 0.2-1.0 Specimen Source (test code = 2795) LYNDSAY (test code = LYNDSAY) Cornetist ID - [auto]Cornetist ID - tech Lab Interpretation (test code = 55796-0) Abnormal [facility] HospitalUrinalysis without Hxpsdmfiuog1612-90-87 03:58:52* Test Item Value Reference Range Interpretation Comme nts Color, UA (test code = 5778-6) Light Yellow Clarity, UA (test code = 5767-9) Hazy Specific [place], UA (test code = 5811-5) 1.017 1.001-1.035 pH, UA (test code = 5803-2) 6.0 5.0-8.0 Protein, UA (test code = 28688-9) 10 mg/dL Negative A Glucose, UA (test code = 365) Negative Negative Ketones, UA (test code = 2514-8) Trace Negative A Bilirubin, UA (test code = 00991-7) Negative Negative Blood, UA (test code = 00021-9) Trace Negative A Nitrite, UA (test code = 5802-4) Negative Negative Leukocytes, UA (test code = 5799-2) Negative Negative Urobilinogen, UA (test code = 10089-0) 0.2 0.2-1.0 Specimen Source (test code = 2795) LYNDSAY (test code = LYNDSAY) Cornetist ID - [auto]Cornetist ID - tech Lab Interpretation (test code = 15990-3) Abnormal [facility] HospitalURINALYSIS WITHOUT [id number] 03:58:52* Test Item Value Reference Range Interpretation [...] 0.2 0.2-1.0 SOURCE(BEAKER) (test code = 2795) Cornetist ID - [auto]Cornetist ID - techCBC W/PLT COUNT & AUTO [...] 2801) 0.70 % 0.00-1.00 Rapid drug screen, [id number] 02:20:15* Test Item Value Reference Range Interpretation Comme nts Barbiturate Screen (test code = 48501-7) Negative Negative Benzodiazepine Screen (test code = 07805-1) Negative Negative Cocaine (Metab.) Screen (test code = 3397-7) Positive Negative A Methadone Screen (test code = 31890-1) Negative Negative Opiate Screen (test code = 88593-1) Negative Negative Cannabinoid Screen (test code = 42738-0) Positive Negative A Amph/Methamph Screen (test code = 37872-4) Negative Negative Phencyclidine Screen (test code = 19941-8) Negative Negative pH, UA (test code = 5803-2) 6 5.0-8.0 LYNDSAY (test code = LYNDSAY) DRUG CUTOFF CONC.Cocaine 300 ng/mL Cannabinoid 50 ng/mLBenzodiazepine 200 ng/mLBarbiturate 200 ng/mLPhencyclidine 25 ng/mLOpiate 300 ng/mLMethadone 300 ng/mLAmphetamine/ 1000 ng/mL Methamphetamine This assay provides an unconfirmed qualitative test result for the clinical management of patients in emergency situations. Chain of custody not maintained. Some anye-sht-jebbyag medications, as well as adulterants, may cause inaccurate results. Clinical correlation should be applied. A more comprehensive drug screen or confirmation of a detected drug may be performed upon request.Cornetist ID - ADMIN Lab Interpretation (test code = 71799-1) Abnormal [facility] HospitalRapid drug screen, [id number] 02:20:15* Test Item Value Reference Range Interpretation Comme nts Barbiturate Screen (test code = 79562-1) Negative Negative Benzodiazepine Screen (test code = 94471-1) Negative Negative Cocaine (Metab.) Screen (test code = 3397-7) Positive Negative A Methadone Screen (test code = 59167-9) Negative Negative Opiate Screen (test code = 49662-9) Negative Negative Cannabinoid Screen (test code = 50650-6) Positive Negative A Amph/Methamph Screen (test code = 96742-1) Negative Negative Phencyclidine Screen (test code = 50758-3) Negative Negative pH, UA (test code = 5803-2) 6.0 5.0-8.0 LYNDSAY (test code = LYNDSAY) DRUG CUTOFF CONC.Cocaine 300 ng/mL Cannabinoid 50 ng/mLBenzodiazepine 200 ng/mLBarbiturate 200 ng/mLPhencyclidine 25 ng/mLOpiate 300 ng/mLMethadone 300 ng/mLAmphetamine/ 1000 ng/mL Methamphetamine This assay provides an unconfirmed qualitative test result for the clinical management of patients in emergency situations. Chain of custody not maintained. Some yjxv-eet-xplennt medications, as well as adulterants, may cause inaccurate results. Clinical correlation should be applied. A more comprehensive drug screen or confirmation of a detected drug may be performed upon request.Cornetist ID - ADMIN Lab Interpretation (test code = 28963-9) Abnormal [facility] HospitalRAPID DRUG SCREEN, [id number] 02:20:15* Test Item Value Reference Range Interpretation [...] situations. Chain of custody not maintained. Some tygn-hzy-czezqny medications, as well as adulterants, may cause inaccurate results. Clinical correlation should be applied. A more comprehensive drug screen or confirmation of a detected drug may be performed upon request.Cornetist ID - ADMINB-TYPE NATRIURETIC FACTOR (BNP)2023-09-04 02:11:53* Test Item Value Reference Range Interpretation Comme nts B-TYPE NATRIURETIC PEPTIDE (BEAKER) (test code = 700) 1761 pg/mL 0-100 H Cornetist ID - ADMINLACTIC ACID, [id number] 02:10:37* Test Item Value Reference Range Interpretation Comme nts LACTATE BLOOD VENOUS (2) (BEAKER) (test code = 2872) 1.04 mmol/L 0.50-2.00 Specimen slightl y hemolyzed Cornetist ID - OEUGUOVPIXBXEOF5200-52-75 02:04:37* Test Item Value Reference Range Interpretation Comme nts PHOSPHORUS (BEAKER) (test code = 604) 4.2 mg/dL 2.3-4.7 Specimen sligh tly hemolyzed Cornetist ID - ADMINCOMPREHENSIVE METABOLIC [id number] 02:04:37* Test Item Value Reference Range Interpretation [...] GFR is not applicable for dialysis patients Cornetist ID - [id number] 02:04:36* Test Item Value Reference Range Interpretation Comme nts MAGNESIUM (BEAKER) (test code = 627) 2.1 mg/dL 1.6-2.6 Specimen sligh tly hemolyzed Cornetist ID - [id number]-YHTBR5678-90-16 01:45:13* Test Item Value Reference Range Interpretation [...] code = 760) 28.5 seconds 22.5-36.0 PROTHROMBIN TIME/OLG4283-11-03 01:42:15* Test Item Value Reference Range Interpretation Comme nts PROTIME (BEAKER) (test code = 759) 15.8 seconds 11.9-14.2 H INR (BEAKER) (test code = 370) 1.25 <=5.90 RECOMMENDED COUMADIN/WARFARIN INR THERAPY RANGESSTANDARD DOSE: 2.0 - 3.0 Includes: PROPHYLAXIS for venous thrombosis, systemic embolization; TREATMENT for venous thrombosis and/or pulmonary embolus.HIGH RISK: Target INR is 2.5-3.5 for patients with mechanical heart valves.OYJ-[id number] 00:00:00Ordered by an unspecified provider.[facility] HospitalEKG-BIGUDMF7790-95-99 00:00:00Ordered by an unspecified provider.[facility] HospitalLactic Acid Whole Vqoez1600-47-53 20:51:22* Test Item Value Reference Range Interpretation Comme nts LACTIC ACID (test code = 6055539628) 1.56 mmol/L 0.50-2.20 Lab Interpretation (test cod e = 18131-3) Normal [facility] [id number] 07:00:09* Test Item Value Reference Range Interpretation Comme nts CULTURE (BEAKER) (test code = 1095) No growth in 5 days T-SPOT(R).LU6304-09-06 18:35:00* Test Item Value Reference Range Interpretation Comme nts T-SPOT.TB (test code = 75559-4) Negative SeeBelow Normal Value: Ne gativeA negative [...] CORRECTED FOR NEG CONTROL (test code = 24380-3) 0 NEGATIVE CONTROL (test code = 02993-3) Passed POSITIVE CONTROL (test code = 21761-0) Passed LYNDSAY (test code = LYNDSAY) [id number] [facility] HospitalT-SPOT(R).EY7025-01-74 18:35:00* Test Item Value Reference Range Interpretation Comme nts T-SPOT.TB (test code = 8865495) Negative SeeBelow Normal Value: Ne gativeA negative [...] CORRECTED FOR NEG CONTROL (test code = 6916974) 1 PANEL B SPOT COUNT CORRECTED FOR NEG CONTROL (test code = 6512406) 0 NEGATIVE CONTROL (test code = 5183193) Passed POSITIVE CONTROL (test code = 6183281) Passed LYNDSAY (test code = LYNDSAY) [id number] [facility] HospitalT-SPOT(R).[id number] 18:35:00* Test Item Value Reference Range Interpretation Comme nts T-SPOT.TB (test code = 90308-3) Negative SeeBelow Normal Value: Ne gativeA negative [...] CORRECTED FOR NEG CONTROL (test code = 65244-1) 0 NEGATIVE CONTROL (test code = 84195-8) Passed POSITIVE CONTROL (test code = 74736-6) Passed LYNDSAY (test code = LYNDSAY) [id number] [facility] HospitalTransesophageal vsiu6553-09-05 13:41:18 Transesophageal Echocardiography Report (CHETAN) Demographics Patient Name YUE ROMERO Date of Study 06/16/2023 ESTELLE Gender Female Visit Number [id number] Race Room Number 1055 Number Date of 1970 Referring Physician Age 53 year(s) Nickel Operator Interpreting Physician Brian MDProcedure Type of [...] Valve Partially visualized. Pulmonic Valve Not visualized.[facility] HospitalTransesophageal echo 2023-06-16 13:41:18Transesophageal Echocardiography Report (CHETAN) Demographics Patient Name YUE ROMERO Date of Study 06/16/2023 ESTELLE Gender Female Visit Number [id number] Race Room Number 1055 Number Date of 1970 Referring Physician Age 53 year(s) Nickel Operator Interpreting Physician Brian MDProcedure Type of [...] Valve Partially visualized. Pulmonic Valve Not visualized.[facility] HospitalTransesophageal echo 2023-06-16 13:41:18Transesophageal Echocardiography Report (CHETAN) Demographics Patient Name YUE ROMERO Date of Study 06/16/2023 ESTELLE Gender Female Visit Number [id number] Race Room Number 1055 Number Date of 1970 Referring Physician Age 53 year(s) Nickel Operator Interpreting Physician Brian MDProcedure Type of [...] Tricuspid Valve Partially visualized. Pulmonic Valve Not visualized.[facility] oyrvcd0932-06-93 09:55:41* Test Item Value Reference Range Interpretation Comme nts Result (test code = 6463-4) No MRSA isolated [facility] [id number] 09:55:41* Test Item Value Reference Range Interpretation Comme nts CULTURE (BEAKER) (test code = 1095) No MRSA isolated CRYPTOCOCCAL BQOVFPM4301-69-07 15:50:36* Test Item Value Reference Range Interpretation Comme nts CRYPTOCOCCAL ANTIGEN, SERUM (BEAKER) (test code = 1828) Negative Negative, Interference SPUTUM CULTURE + GRAM [id number] 10:30:11* Test Item Value Reference Range Interpretation [...] GRAM STAIN RESULT (BEAKER) (test code = 005657) 10-15 epithelial cells GRAM STAIN RESULT (BEAKER) (test code = 813295) 2+ gram positive cocci in chains and pairs GRAM STAIN RESULT (BEAKER) (test code = 774863) 1+ gram negative rods GRAM STAIN RESULT (BEAKER) (test code = 868269) 1+ yeast 2+ Normal respiratory rebel presentVANCOMYCIN LEVEL, [id number] 06:41:26* Test Item Value Reference Range Interpretation Comme nts VANCOMYCIN TROUGH (BEAKER) ( test code = 522) 17.0 ug/mL 10.0-20.0 Cornetist ID - ADMINECHO W CONTRAST & [id number] 13:44:03Transthoracic Echocardiography Report (TTE) Demographics Patient Name YUE ROMERO Date of Study 06/14/2023 ESTELLE Gender Female Visit Number [id number] Race Room Number 1055 Number Date of 1970 Referring Aydee Go MD Physician Age 53 year(s) Nickel Operator James Albarran [facility] Interpreting Mauricio Bonilla, Physician MDProcedure Type of [...] mmHgCHI [facility] HospitalECHO W CONTRAST & [id number] 13:44:03Transthoracic Echocardiography Report (TTE) Demographics Patient Name YUE ROMERO Date of Study 06/14/2023 [facility] Gender Female Visit Number [id number] Race Room Number 1055 Number Date of 1970 Referring Aydee Go MD Physician Age 53 year(s) Nickel Operator James Albarran RDCS Interpreting Physician Brian MDProcedure [...] 193.4 msec Deceleration Time: 667 msec AV DVI:0.63 LVOT Peak Velocity: 1.18 m/s Peak Gradient: 5.66 mmHg Mean Velocity: 0.86 m/s Mean Gradient: 3.28 mmHg LVOT Diameter: 2.03 cm LVOT VTI: 21.8 cm LVOT Area: 3.24 cm^2 LVOT SV:70.52 ml LVOT CO: 6.49 l/min LVOT CI: 3.42 l/min/m^2 Pulmonic Valve Peak Velocity: 0.85 m/s Peak Gradient: 2.89 mmHgCHI [facility] HospitalECHO W CONTRAST & [id number] 13:44:03Transthoracic Echocardiography Report (TTE) Demographics Patient Name YUE ROMERO Date of Study 06/14/2023 ESTELLE Gender Female Visit Number [id number] Race Room Number 1055 Number Date of 1970 Referring Aydee Go MD Physician Age 53 year(s) Nickel Operator James Albarran RDCS Interpreting Physician Brian MDProcedure [...] Peak Velocity: 0.85 m/s Peak Gradient: 2.89 mmHgLakeside HospitalHEMOGLOBIN A1C 2023-06-14 09:26:42* Test Item Value [...] 5.7- 6.4% indicates increased risk for diabetes (prediabetes)."Cornetist ID - ADMOperator ID - ADMECG 12 kyjn4927-45-15 09:06:12Ventricular Rate 97 BPMAtrial Rate 97 BPMP-R Interval 146 msQRS Duration 96 msQ-T Interval 378 msQTC Calculation(Bazett) 480 msP [place] 68 degreesR [place] 107 degreesT [place] 18 degrees Suspect arm leadreversal, interpretation assumes no reversalNormal sinus rhythmRightward axisNonspecific T wave abnormalityAbnormal ECGWhen compared with ECG of 30-MAR-2023 13:06,QRS axis Shifted rightConfirmed by Luis Lopez ([id number]) on 06/14/2023 9:06:07 [facility] oodd0155-25-12 09:06:12Ventricular Rate 97 BPMAtrial Rate 97 BPMP-R Interval 146 msQRS Duration 96 msQ-T Interval 378 msQTC Calculation(Bazett) 480 msP [place] 68 degreesR [place] 107 degreesT [place] 18 degrees Suspect arm leadreversal, interpretation assumes no reversalNormal sinus rhythmRightward axisNonspecific T wave abno rmalityAbnormal ECGWhen compared with ECG of 30-MAR-2023 13:06,QRS axis Shifted rightConfirmed by Luis Lopez ([id number]) on 06/14/2023 9:06:07 [facility] [id number] 09:06:12Ventricular Rate 97 BPMAtrial Rate 97 BPMP-R Interval 146 msQRS Duration 96 msQ-T Interval 378 msQTC Calculation(Connerzeyury) 480 msP [place] 68 degreesR [place] 107 degreesT [place] 18 degrees Suspect arm leadreversal, interpretation assumes no reversalNormal sinus rhythmRightward axisNonspecific T wave abnormalityAbnormal ECGWhen compared with ECG of 30-MAR-2023 13:06,QRS axis Shifted rightConfirmed by Luis Lopez ([id number]) on 06/14/2023 9:06:07 [facility] METABOLIC PANEL 2023-06-14 04:48:18* Test Item Value Reference Range Interpretation [...] GFR is not applicable for dialysis patients Cornetist ID - ADMINCBC (HEMOGRAM ONLY)2023-06-14 04:22:50* Test [...] 413) 0 /100 WBC 0-0 Strep pneumoniae klaxplw9219-78-35 23:34:41* Test Item Value Reference Range Interpretation Comme nts Strep pneumoniae Antigen (test code = 95033-9) Presumptive negative for pneumococcal pneumonia - see [...] the test. Lab Interpretation (test code = 75623-9) Normal [facility] HospitalTREP PNEUMONIAE [id number] 23:34:41* Test Item Value Reference Range Interpretation [...] detection limit of the test. Legionella antigen, ubkoc8442-92-79 23:29:07* Test Item Value Reference Range Interpretation Comme nts Legionella Urine Antigen (test code = 54504-4) Negative - see comment Negative Negative for L. pneumophila serogroup 1 antigen, suggesting no recent or current infection with this serogroup. Legionellosis cannot be ruled out since other serogroups and species may cause disease. Lab Interpretation (test code = 29043-6) Normal [facility] HospitalLEGIONELLA ANTIGEN, [id number] 23:29:07* Test Item Value Reference Range Interpretation Comme nts L. PNEUMOPHILA SEROGP 1 UR AG (BEAKER) (test code = 1156) Negative - see comment Negative Negative for L. pneumophila serogroup 1 antigen, suggesting no recent or current infection with this serogroup. Legionellosis cannot be ruled out since other serogroups and species may cause disease. Venous doppler arm, vdyt8700-04-30 20:05:32PV LAB - Upper Extremities Veins Demographics Patient Name YUE ROMERO Date of Study 06/13/2023 ESTELLE Age 53 Visit Number [id number] Gender Female Accession Number [id number] Date of 1970 Referring Marianela Burgess Room Number 1055 Physician Nickel Operator Lisa Ruiz Interpreting John Solorio, Physician MD [...] in cm/s ; Diameters are measured in [facility] HospitalVen[facility], [id number] 20:05:32PV LAB - Upper Extremities Veins Demographics Patient Name YUE ROMERO Date of Study 06/13/2023 ESTELLE Age 53 Visit Number [id number] Gender Female Accession Number [id number] Date of 1970 Referring radha Hamilton Jenifer Room Number 1055 Physician Nickel Operator Lisa Ruiz Interpreting John Solorio Physician FellowProcedureType [...] in cm/s ; Diameters are [facility] HospitalHIV-1 ANTIGEN WITH HIV-1/2 [id number] 18:36:40* Test Item Value Reference Range Interpretation Comme nts HIV-1 ANTIGEN WITH HIV 1\\T\\2 ANTIBODY (2) (LATOYA) (test code = 2586) Nonreactive Nonreactive MR lumbar spine without & with IV jpkzmonv8495-27-32 14:53:29MR LUMBAR SPINE WITH & WITHOUT IV [...] x 1.7x 1.7 cm. Dorsal paraspinal musculature J7bqunpmidddluhn. Postcontrast imaging demonstrates mild peripheralenhancement of the dorsal paraspinal fluid collection. Left adrenalgland 2.9 cm nodule.[facility] HospitalMR lumbar spine without & with IV rswighbq6769-02-15 14:53:29MR LUMBAR SPINE WITH & WITHOUT IV [...] x 1.7x 1.7 cm. Dorsal paraspinal musculature X7ltpaisjsaamxhs. Postcontrast imaging demonstrates mild peripheralenhancement of the dorsal paraspinal fluid collection. Left adrenalgland 2.9 cm nodule.[facility]ide HospitalMR LUMBAR SPINE WITH & WITHOUT IV HEKSMDAP1669-27-32 14:53:29[facility] 1970 Sex: FMR LUMBAR SPINE WITH & WITHOUT IV CONTRASTINDICATION: Lumbar radiculopathy, prior surgery, new symptomsCOMPARISON: 03/30/2023TECHNIQUE: Multiplanar, multisequence MR images of the lumbar spine withand without contrast. FINDINGS: Numbering: Last fully formed disc space is designated L5-S1.Spinal cord: The conus medullaris is normal is size, signal intensity,and position, terminating at the I1fltwe. Reduced cauda equinaredundancy above the L3-4 level.Osseous [...] 1.7 x 1.7 cm. Dorsal paraspinal musculature O6wqnrskzxllumge. Postcontrast imaging demonstrates mild peripheralenhancement of the [...] Signed By: Ryan Buckley06/13/2023 14:55 CDTWorkstation Name: [id number] KINASE (CK)2023-06-13 11:54:02* Test Item Value Reference Range Interpretation Comme nts CREATINE KINASE TOTAL (BEAKE R) (test code = 380) 43 U/L 29-200 Cornetist ID - ADMINCOMPREHENSIVE METABOLIC DAFOS3717-74-02 06:48:22* Test Item Value Reference Range Interpretation [...] GFR is not applicable for dialysis patients Cornetist ID - ADMINPROTHROMBIN TIME/OVU6635-12-62 06:40:01* Test Item Value Reference Range Interpretation [...] code = 2801) 1.70 % 0.00-1.00 H [id number] 05:26:09* Test Item Value Reference Range Interpretation Comme nts MAGNESIUM (BEAKER) (test cod e = 627) 2.0 mg/dL 1.6-2.6 Cornetist ID - OEMRKAZQFIOAEHI8290-50-88 05:26:09* Test Item Value Reference Range Interpretation Comme nts PHOSPHORUS (BEAKER) (test co de = 604) 3.5 mg/dL 2.3-4.7 Cornetist ID - ADMINBASIC METABOLIC IBHZZ6686-15-76 05:26:08* Test Item Value Reference Range Interpretation [...] GFR is not applicable for dialysis patients Cornetist ID - ADMINCBC W/PLT COUNT & AUTO [id number] 05:11:15* Test Item Value Reference Range Interpretation [...] 0.70 % 0.00-1.00 XR spine lumbar 1 aanj5131-71-48 10:32:20XR SPINE LUMBAR 1 VIEW CLINICAL INDICATION: L3-4 LAMINECTOMY [facility] 1 [id number] 10:32:20XR SPINE LUMBAR 1 VIEW CLINICAL INDICATION: L3-4 LAMINECTOMY COM[facility] 1 [facility] 2023-06-01 10:32:20 [facility] 1970 Sex: FXR SPINE LUMBAR 1 VIEWCLINICAL INDICATION: L3-4 LAMINECTOMYCOMPARISON: NoneIMPRESSION:A single lateral view of the lumbar spine is obtained intraoperatively.The posterior approach surgical instrument is seen at the L3-L4 level,inferior to the L3 spinous process. Results were communicated to , who concurred with the above findings. Electronically Signed By: Maxim Ramos08/01/2022 10:34 CDTWo rkstation Name: [id number] SPINE LUMBAR 1 JOZL7547-61-85 10:29:18 [facility] : 1970 Sex: FCLINICAL [...] Signed By: Maxim Ramos08/01/2022 10:31 CDTWorkstation Name: [id number] Screen, ivpeg3919-45-61 05:32:52* Test Item Value Reference Range Interpretation Comme nts Preg Test, Ur (test code = 2112-1) Negative Negative Lab Interpretation (test cod e = 70793-6) Normal [facility] HospitalPREGNANCY SCREEN, [id number] 05:32:52* Test Item Value Reference Range Interpretation Comme nts TEST URINE (BEAKER ) (test code = 583) Negative Negative BASIC METABOLIC [id number] 23:30:54* Test Item Value Reference Range Interpretation [...] GFR is not applicable for dialysis patients Cornetist ID - ADMINPT/JVKT6165-08-05 23:15:33* Test Item Value Reference Range Interpretation [...] H CT neck soft tissue without IV vpwfadtv9610-13-28 13:45:22EXAM: CT NECK SOFT TISSUE WITHOUT IV [...] Postoperative changes from anterior cervical discectomy fusionat C3-O3Oexolgqp Lung Apices: NormalCHI [facility] Foundation HospitalCT neck soft tissue without IV quqkoeod7442-90-80 13:45:22EXAM: CT NECK SOFT TISSUE WITHOUT IV [...] Postoperative changes from anterior cervical discectomy fusionat C3-C3Jwdjuwbn Lung Apices: NormalCHI [facility] Foundation HospitalCT NECK SOFT TISSUE WITHOUT IV [id number] 13:45:22 [facility] : 1970 Sex: FEXAM: [...] Postoperative changes from anterior cervical discectomy fusionat C3-B1Ceatirpe Lung Apices: NormalIMPRESSION:Exam limited by lack of intravenous contrast.1. 1.8 x 2.9 x 1.3 cm ill-defined fluid collection in the leftanterolateral neck soft tissues, suggesting evolving postoperativehemorrhage. Superimposed infection is not ex cluded.2. Retropharyngeal fluid and air measuring up to 0.8 cm in thickness,favored to be present postoperative right frontal edema. Superimposedinfection is not excluded.3. Postoperative changes from ACDF at C3- G5Kajvoddiwpvuou Signed By: Maxim Ramos07/31/2022 13:47 CDTWorkstation Name: [id number] METABOLIC [id number] 08:13:13* Test Item Value Reference Range Interpretation [...] GFR is not applicable for dialysis patients Cornetist ID - BVCBC W/PLT COUNT & AUTO ZLQDGLITAAPT5636-47-86 07:46:31* Test Item Value Reference Range Interpretation [...] 0.00-1.00 XR spine cervical 2 or 3 tdqer6738-16-87 20:24:23TECHNIQUE: Frontal and lateral views of the cervical spine. INDICATION: Postop Standing Films. COMPARISON: None.[facility] HospitalXR spine cervical 2 or 3 fonic3664-77-19 20:24:23TECHNIQUE: Frontal and lateral views of the cervical spine. INDICATION: Postop Standing Films. COMPARISON: None.[facility] HospitalXR SPINE CERVICAL 2 OR 3 [id number] 20:24:23 [facility] : 1970 Sex: FTECHNIQUE: [...] Signed By: Zachariah Garcia05/28/2023 20:26 CDTWorkstation Name: [id number] fluoro non-specific up to 1 hour 2023-05-28 11:45:16This is a non-reportable study with no Radiologist dictation. Please refer to your PACS to review images, or Doc Flowsheets for documentation on studies without images.Lakeside HospitalFL fluoro non-specific up to 1 zkbi4280-76-15 11:45:16This is a non-reportable study with no Radiologist dictation. Please refer to your PACS to review images, or Doc Flowsheets for documentation on studies without images.Lakeside HospitalFL FLUORO NON-SPECIFIC UP TO 1 [id number] 11:45:16 [facility]: 1970 Sex: FThis is a non- reportable study with no Radiologist dictation. Please refer to your PACS to review images, or Doc Flowsheets for documentation on studies without images.FL FLUORO NON-SPECIFIC UP TO 1 [id number] 10:13:02 [facility] : 1970 Sex: FTECHNIQUE: 1 lateral fluoroscopic image of the cervical spine forlocalization.Fluoroscopic time: 3second(s).FINDINGS:The surgical pointer is at C3-C4.The findings were discussed with Dr. Garcia in theOR who concurred withthe findings.IMPRESSION:Intraoperative localization plain film as described abo ve.Electronically Signed By: Derik Reyez05/28/2023 10:15 CDTWorkstation Name: [id number], QUANTITATIVE, MFNMFZMVF7025-48-30 08:21:03* Test Item Value Reference Range Interpretation Comme nts GONADOTROPIN, CHORIONIC (HCG ) QUANT (LATOYA) (test code = 649) < mIU/mL 0-10 Non- Females: <10 mIU/mL Females: Gestation Age Reference Range(mIU/mL) 0.2-1 Week 5-50 1-2 Weeks 50-500 2-3 Weeks 100-5,000 3-4 Weeks 500-10,000 4-5 Weeks 1,000-50,000 5-6 Weeks 10,000-100,000 6-8 Weeks 15,000- 200,000 2-3 Months 10,000-100,000 Cornetist ID - ADMINCULTCOCO [id number] 09:28:30SPECIMEN NUMBER: [id number] CULTURE, URINE SPECIMEN NUMBER: [id number] SPECIMEN COMMENT: URINE SOURCE: URINE REPORT STATUS: FINAL FINAL REPORT: 05/15/2023 >100,000 CFU/ML UROGENITAL REBEL PRESENT NOCOMMON PATHOGENS UNLESS OTHERWISE INDICATED, ALL TESTING PERFORMED AT [facility] [employer] [facility] [address] [place] [address] DOUGH CATCHER: JANNY STEINER M.D. CLIA NUMBER [id number] [place]. [id number], [id number] 12:02:50SPECIMEN NUMBER: [id number] CULTURE, URINE SPECIMEN NUMBER: [id number] SOURCE: URINE REPORT STATUS: FINAL FINAL REPORT: 05/13/2023 NO SPECIMEN RECEIVED FOR TESTING. CHARGES DELETED.BASIC METABOLIC [id number] 04:48:43* Test Item Value Reference Range Interpretation Comme nts GLUCOSE (test code = 2217) 117 MG/DL 70-99 H BUN (test code = 2208) 20 MG/DL 6-20 CREATININE (test code = 2214) 0.83 MG/DL 0.60-1.30 eGFR (2020 CKD-EPI) (test co de = 34751) 85 ML/MIN/1.73 >60 SODIUM (test code = [...] 12.7 SECONDS 12.5-14.7 INR (test code = 14825) 0.9 SEE BELOW CURRENT RECOMMENDATIONS ARE FOR AN INR OF 2.0-3.0 FOR ALL PATIENTS ON VITAMIN K ANTAGONISTS, EXCEPT THOSE WITH PROSTHETIC HEART VALVES, FOR WHOM INR OF 2.5-3.5 IS RECOMMENDED. UNLESS OTHERWISE INDICATED, ALL TESTING PERFORMED AT [facility] [address] [place] [address] DOUGH CATCHER: David DUMONTIA NUMBER [id number] [facility] [place]. [id number] CBC W/AUTO DIFF WITH IWYADCCQZ0669-03-73 01:54:17* Test Item Value Reference Range Interpretation [...] H ABS NUCLEATED RBCS (test code = 79074) 0.00 K/UL 0.00-0.11 ECG 12 [id number] 14:02:48Ventricular Rate 102 BPMAtrial Rate 102 BPMP-R Interval 146 msQRS Duration 90 msQ-T Interval 372 msQTC Calculation(Bazett) 484 msP [place] 11 degreesR [place] -53 degreesT [place] 29 degrees Sinus tachycardiaPossible Left atrial enlargementLeft axis deviationPoor R wave progression Cannot rule out Anterior infarct , age undetermined vs lead misplacementNonspecific T wave abnormalityProlonged QTAbnormal ECGNo previous ECGs availableConfirmed by David GARCIA BASANT ([id number]) on 04/06/2023 2:02:46 [facility]AST & [id number] 13:11:39Transthoracic Echocardiography Report (TTE) Demographics Patient Name YUE ROMERO Date of Study 03/31/2023 ESTELLE Gender Female Visit Number [id number] Race Room Number 2227 Number Date of 1970 Referring Physician Mariah Aldridge MD Age 53year(s) Nickel Operator Wilmer Francois Virtual Office Assistant Josefina Corbett, [facility] Interpreting Physician [...] Velocity: 0.74 m/s Peak Gradient: 2.22 mmHgCH[facility] & DOPPLER 2023-04-02 13:11:39Transthoracic Echocardiography Report (TTE) Demographics Patient Name YUE ROMERO Date of Study 03/31/2023 ESTELLE Gender Female Visit Number [id number] Race Room Number 2227 Number Date of 1970 Referring Physician Mariah Aldridge MD Age 53year(s) Nickel Operator Wilmer Francois Virtual Office Assistant Josefina Corbett [facility] Interpreting Physician [...] Peak Velocity: 0.74 m/s Peak Gradient: 2.22 mmHgLakeside HospitalXR chest 1 view portable / [id number] 15:39:07TECHNIQUE: Frontal view of the chest. INDICATION: CHf. COMPARISON: None. FINDINGS: LINES/TUBES: None. HEART AND MEDIASTINUM: Cardiomediastinal contour is within normallimits. LUNGS: The lungs are well inflated and clear. No consolidation orpulmonary edema. PLEURA: No pneumothorax. No significant pleural effusion. SOFT TISSUES AND BONES: Cervical spinal fixation hardware is noted.Lakeside HospitalXR chest 1 view portable / [id number] 15:39:07TECHNIQUE: Frontal view of the chest. INDICATION: CHf. COMPARISON: None. FINDINGS: LINES/TUBES: None. HEART AND MEDIASTINUM: Cardiomediastinal contour is within normallimits. LUNGS: The lungs are well inflated and clear. No consolidation orpulmonary edema. PLEURA: No pneumothorax. No significant pleural effusion. SOFT TISSUES AND BONES: Cervical spinal fixation hardware is noted.L[facility]ide HospitalXR CHEST 1 VIEW PORTABLE / [id number] 15:39:07 [facility] 1970 Sex: FTECHNIQUE: Frontal view of the chest.INDICATION: CHf.COMPARISON: None.FINDINGS:LINES/TUBES: None.HE ART AND MEDIASTINUM: Cardiomediastinal contour is within normallimits. LUNGS: The lungs are well inflated and clear. No consolidation orpulmonary edema.PLEURA: No pneumothorax. No significant pleuraleffusion.SOFT TISSUES AND BONES: Cervical spinal fixation hardware is noted.IMPRESSION:No acute card iopulmonary process.Electronically Signed By: Jose Carlos Lebron04/01/2023 15:41 CDTWorkstation Name: [id number] NATRIURETIC FACTOR (BNP)2023-04-01 14:15:07* Test Item Value Reference Range Interpretation Comme nts B-TYPE NATRIURETIC PEPTIDE ( BEAKER) (test code = 700) 192 pg/mL 0-100 H Cornetist ID - ADMINMR spine cervical without IV tgtrwwsq4624-41-53 11:30:35MRI cervical spine without contrast CLINICAL HISTORY: [...] and paraspinal soft tissues are within normal limits.Lakeside HospitalMR CERVICAL SPINE WITHOUT IV [id number] 11:30:35 [facility] : 1970 Sex: FMRI [...] Signed By: Maxim Sultana03/31/2023 11:32 CDTWorkstation Name: [id number] METABOLIC XQGIM7887-04-09 04:43:14* Test Item Value Reference Range Interpretation [...] GFR is not applicable for dialysis patients Cornetist GEOVANNA CORREA WCBC (HEMOGRAM ONLY)2023-03-31 04:20:07* Test [...] 0 /100 WBC 0-0 Arterial doppler legs chvfvlrol4857-27-57 17:44:07PV LAB - Lower Extremity Arterial Duplex Demographics Patient Name YUE ROMERO Date of Study ESTELLE Age 53 Visit Number [id number] Gender Female Accession Number [id number] Date of 1970 Referring Mariah Aldridge, Room Number 2227 Physician Nickel Operator Yovana Akins Interpreting John Solorio, Physician [...] + + + + + + !Prox HOUSECLEANER FLOOR ! !32 ! !Biphasic ! !60.9 ! !Triphasic ! +-- + + + + + + + + + !Mid HOUSECLEANER FLOOR ! !25.9 ! !Biphasic ! !59.7 ! !Triphasic ! + + + + + + + + + + !Dist HOUSECLEANER FLOOR ! !33.2 ! !Biphasic ! !37.4 ! [...] + +[facility] legs prvqjkyve3244-09-24 17:44:07PV LAB - Lower Extremity Arterial Duplex Demographics Patient Name YUE ROMERO Date of Study 03/30/2023 ESTELLE Age 53 Visit Number [id number] Gender Female Accession Number [id number] of 1970 Referring Mariah Zindani, Room Number 2226 Physician Nickel Operator Yovana Akins Interpreting John Solorio, Physician [...] + + + + + + !Prox HOUSECLEANER FLOOR ! !32 ! !Biphasic ! !60.9 ! !Triphasic ! + + + + + + + + + + !Mid HOUSECLEANER FLOOR ! !25.9 ! !Biphasic ! !59.7 ! !Triphasic ! + + + + + + + + + + !Dist HOUSECLEANER FLOOR ! !33.2 ! !Biphasic ! !37.4 ! [...] Study 03/30/2023 ESTELLE Age 53 Visit Number [id number] Gender Female Accession Number [id number] Date of 1970 Referring Mariah Aldridge, Room Number 2227 Physician Nickel Operator Yovana Akins Interpreting John Solorio, Physician [...] in cm/s ; Diameters are [facility](Ankle/Brachial Index)2023-03-30 17:13:47PV LAB - Lower Extremity Arterial Procedure Demographics Patient Name YUE ROMERO Date of Study 03/30/2023 ESTELLE Age 53 Visit Number [id number] Gender Female Accession Number [id number] Date of 1970 Referring Mariah Aldridge, Room Number 2227 Physician Nickel Operator Yovana Akins Interpreting Physician CARO Oliver FellowProcedureType of Study: Extremities Arteries: Lower Extremity [...] in cm/s ; Diameters are measured in [facility] spine without IV pdquxivz5827-02-42 12:50:50MR THORACIC SPINE WITHOUT IV CONTRAST INDICATION: [...] and further reported on MRI lumbar spine. [facility] IV [id number] 12:50:50[facility] : 1970 Sex: FMR [...] abnormality. T10-11 moderate right neural foraminal stenosis laxT00-78 moderate bilateral foraminal stenosis due to facet [...] Signed By: Ryan Buckley03/30/2023 12:52 CDTWorkstation Name: [id number] spine lumbar without IV dbpbymeu9704-65-55 12:33:57MR LUMBAR SPINE WITHOUT IV CONTRAST INDICATION: Unlisted Reason for ExamConcern for cord compression COMPARISON: None TECHNIQUE: Multiplanar, multisequence MR images of the lumbar spinewithout contrast. FINDINGS: For the purposes of this dictation, the 5 lowermost unsotq-dwrnzxzjcbhrq-rbvx vertebral bodies are labeled L1-L5.Alignment of the [...] [facility] L[facility] IV VDPTEOFE3651-16-05 12:33:57 [facility] 1970 Sex: FMR LUMBAR SPINE WITHOUT IV CONTRASTINDICATION: Unlisted Reason for ExamConcern for cord compressionCOMPARISON: NoneTECHNIQUE: Multiplanar, multisequence MR images of the lumbar spinewithout contrast. FINDINGS: For the purposes of this dictation, the 5 lowermost mecygq-krruehovtskbi-aiyq vertebral bodies are labeled L1- L5.Alignment of the lumbar spine is within normal limits. Vertebral body height is maintained. Bone marrow edema is seen at the inferior L3 and superior L4 vertebralbodies and bilateral L4 pedicles, favored to be degenerative in nature.Suggestion of a synovial cyst at the stkccY03-E27 level (series 301image eight).No spinal cord signal [...] flavum buckling versus synovial cyst at the seecdL96-X61 level (series 301image eight). MRI thoracic spine can beconsidered for further evaluation.7. Mild clumping of the cauda equina nerve roots, which is nonspecificbut may represent arachnoiditis. Postcontrast imaging can be consideredfor further evaluation.Electronically Signed By: Maxim Sultana03/30/2023 12:36 CDTWorkstation Name: [id number] [id number] 11:45:01* Test Item Value Reference Range Interpretation Comme nts HEMOGLOBIN A1C ELECTROPHORESIS (LINNE[employer]) (test code = 3811) 5.7 % See_Comment [...] 5.7- 6.4% indicates increased risk for diabetes (prediabetes)."Cornetist ID - ADMEEG AWAKE AND FVCPNG2346-23-99 09:57:53Steph Martinez MD 03/30/2023 9:[address] [facility] Type: Inpatient, outpatient, EMUDATE(s) OF EE03/30/23DATE OF REPORT: 03/30/23MRN: [id number] of : 1970EE-1454Start time: 08:36Stop time: :23ICD-10: R56.9 CPT Code: 60093 (awake and asleep)HISTORY: 53 y/o female with [...] AttendingCH[facility] EEG AWAKE AND [id number] 09:57:53Gadarcy Martinez MD 03/30/2023 9:59 AMELECTROENCEPHALOGRAM FOR [facility] EEG Type: Inpatient, outpatient, EMUDATE(s) OF EE03/30/23DATE OF REPORT: 03/30/23MRN: [id number] of : 1970EE-1454Start time: 08:36Stop time: 09:23ICD-10: R56.9 CPT Code: 49142 (awake and asleep)HISTORY: 53 y/o female with [...] AttendingCH[facility] EEG AWAKE AND [id number] 09:57:53Gabrakil Martinez MD 03/30/2023 9:59 AMELECTROENCEPHALOGRAM FOR [facility] EEG Type: Inpatient, outpatient, EMUDATE(s) OF EE03/30/23DATE OF REPORT: 03/30/23MRN: [id number] of : 1970EE-1454Start time: 08:36Stop time: 09:23ICD-10: R56.9 CPT Code: 82057 (awake and asleep)HISTORY: 53 y/o female with [...] AttendingCH[facility] EEG AWAKE AND MHOKIO6850-05-32 09:57:53Gadarcy Martinez MD 03/30/2023 9:59 AMELECTROENCEPHALOGRAM FOR [facility] EEG Type: Inpatient, outpatient, EMUDATE(s) OF EE03/30/23DATE OF REPORT: 03/30/23MRN: [id number] of : 1970EE-1454Start time: 08:36Stop time: 09:23ICD-10: R56.9 CPT Code: 42640 (awake and asleep)HISTORY: 53 y/o female with [...] Elias MD, MPHNeurophysiology/Epilepsy AttendingCH[facility] VALPROIC ACID LEVEL, CBEET7589-24-35 09:42:31* Test Item Value Reference Range Interpretation Comme nts VALPROIC ACID TOTAL (BEAKER) (test code = 924) 76 ug/mL 50-100 Therapeutic range for some clinical conditions may be >100 ug/mLUrinalysis w/Microscopic + Reflex to Eudxdih0348-46-28 08:43:51* Test Item Value Reference Range Interpretation Comme nts Color, UA (test code = 5778-6) Yellow Clarity, UA (test code = 5767-9) Clear Specific [place], UA (test code = 5811-5) 1.033 1.001-1.035 pH, UA (test code = 5803-2) 6.0 5.0-8.0 Protein, UA (test code = 56656-3) 30 mg/dL Negative A Glucose, UA (test code = 365) Negative Negative Ketones, UA (test code = 2514-8) Negative Negative Bilirubin, UA (test code = 57633-8) Negative Negative Blood, UA (test code = 70481-1) Small Negative A Nitrite, UA (test code = 5802-4) Negative Negative Leukocytes, UA (test code = 5799-2) Negative Negative Urobilinogen, UA (test code = 63817-6) 0.2 0.2-1.0 RBC, UA (test code = 28936-9) 51 See_Comment [Automated message] The system which [...] Occasional Squam Epithel, UA (test code = 06802-8) See_Comment [Automated message] The system which generated this result transmitted reference range: /HPF. The reference range was not used to interpret this result as normal/abnormal. Specimen Source (test code = 2795) LYNDSAY (test code = LYNDSAY) Cornetist ID - [auto]Cornetist ID - tech Lab Interpretation (test code = 17659-3) Abnormal [facility]INALYS[facility] W/ REFLEX URINE OXELRQO1218-04-12 08:43:51 * Test Item Value Reference Range [...] < /HPF SOURCE(BEAKER) (test code = 2795) Cornetist ID - [auto]Cornetist ID - techCOMPREHENSIVE METABOLIC WYQME0473-46-93 04:37:29* Test Item Value Reference Range Interpretation [...] GFR is not applicable for dialysis patients Cornetist ID - MATT BPT/OKDO5678-86-69 04:30:17* Test Item Value Reference Range Interpretation Comme nts PROTIME (BEAKER) (test code = 759) 13.8 seconds 11.9-14.2 INR (BEAKER) (test code = 370) 1.13 See_Comment [Automated [employer] ge] The system which generated this result [...] code = 413) 0 /100 WBC 0-0 XRH-ZMEDDVQ3840-13-10 00:00:00Ordered by an unspecified provider.[facility] HospitalEKG-LQNRVXL2281-02-98 00:00:00Ordered by an unspecified provider. [facility] HospitalEKG-LDRSLWJ4319-09-81 00:00:00Ordered by an unspecified provider.[facility] HospitalMAGNESIUM2023-05-25 17:14:06* Test Item Value Reference Range Interpretation Comme nts MAGNESIUM (test code = 4061251639) 1.9 mg/dL 1.7-2.4 Lab Interpretation (test cod e = 27739-7) [facility] (98517)2022-12-11 15:16:25* Test Item Value Reference Range Interpretation Comme nts NA (test code = 0541869582) 139 mmol/L 135-145 K (test code = 7330380054) 3.5 mmol/L 3.5-5.0 CL (test code = 1762438254) 107 mmol/L 98-108 CO2 TOTAL (test code = 3528708370) 24 mmol/L 23-31 AGAP (test code = 8860662107) 8 2-16 BUN (test code = 5967748153) 9 mg/dL 7-23 GLUCOSE (test code = 4877773082) 129 mg/dL 70-110 H CREATININE (test code = 2164374228) 0.68 mg/dL 0.50-1.04 TOTAL BILI (test code = 7411391856) 0.5 mg/dL 0.1-1.1 CALCIUM (test code = 2078537891) 8.9 mg/dL 8.6-10.6 T PROTEIN (test code = 5056495946) 6.3 g/dL 6.3-8.2 ALBUMIN (test code = 4596450764) 3.8 g/dL 3.5-5.0 ALK PHOS (test code = 8042993111) 87 U/L 34-122 ALTv (test code = 1742-6) 24 U/L 5-35 AST(SGOT) (test code = 0437343482) 21 U/L 13-40 eGFR (test code = 1241061533) 91.6 mL/min/1.73m2 LYNDSAY (test code = LYNDSAY) [...] imaging tests). Lab Interpretation (test code = 23069-8) [facility]udaTROP[facility] X0285-00-04 15:10:45* Test Item Value Reference Range Interpretation Comme nts TROPONIN I (test code = 0149094532) 0.015 ng/mL <=0.034 LYNDSAY (test code = [...] of biotin. Lab Interpretation (test code = 26424-9) Normal [facility] BudaN-TERMINAL AIZ-MCT3727-17-25 15:07:48* Test Item Value Reference Range Interpretation Comme nts NT-proBNP (test code = 9045207865) 1460 pg/mL <=125 H LYNDSAY (test code = LYNDSAY) Biotin has been reported to cause a negative bias, interpret results relative to patient's use of biotin. Lab Interpretation (test code = 15329-8) Abnormal [facility] BudaD-TAISG4317-57-17 14:45:24* Test Item Value Reference Range Interpretation Comments D-DIMER (test code = 1663356467) 0.99 See_Comment H [Automated message] The system [...] a diagnosis. Lab Interpretation (test code = 98061-7) Abnormal [facility] BudaCBC WITH NNGQ3623-28-51 14:14:48* Test Item Value Reference Range Interpretation Comme nts WBC (test code = 6690-2) 7.86 See_Comment [Automated [employer]] The system which generated this result transmitted [...] g/dL 31.6-35.1 L RDW-SD (test code = 30357-1) 47.8 fL 39.0-49.9 RDW-CV (test code = 788-0) 16.9 % 12.0-15.5 H PLT (test code = 777-3) 507 See_Comment H [Automated messa ge] The system which generated this result transmitted reference range: 166 - 358 10*3/?L. The reference range was not used to interpret this result as normal/abnormal. MPV (test code = 70202-8) 8.2 fL 9.5-12.9 L NRBC/100 WBC (test code = 6939845922) 0.0 See_Comment [Automated [employer] ssage] The system which generated this result transmitted reference range: 0.0 - 10.0 /100 WBCs. The reference range was not used to interpret this result as normal/abnormal. NRBC x10^3 (test code = 6980493788) See_Comment [Automated messa ge] The system which generated this result transmitted reference range: 10*3/?L. The reference range was not used to interpret this result as normal/abnormal. GRAN MAT (NEUT) % (test code = 770-8) 64.5 % IMM GRAN % (test code = 9741375710) 0.30 % LYMPH % (test code = 736-9) 25.6 % MONO % (test code = 5905-5) 7.5 % EOS % (test code = 713-8) 1.0 % BASO % (test code = 706-2) 1.1 % GRAN MAT x10^3(ANC) (test code = 3931311433) 5.07 10*3/uL 1.88-7.09 IMM GRAN x10^3 (test code = 4375101878) 0.00-0.06 LYMPH x10^3 (test code = 731-0) 2.01 10*3/uL 1.32-3.29 MONO x10^3 (test code = 742-7) 0.59 10*3/uL 0.33-0.92 EOS x10^3 (test code = 711-2) 0.08 10*3/uL 0.03-0.39 BASO x10^3 (test code = 704-7) 0.09 10*3/uL 0.01-0.07 H Lab Interpretation (test code = 63506-0) Abnormal [facility] BudaRPR2023-01-17 13:17:22* Test Item Value Reference Range Interpretation Comme nts RPR SCREEN (Speedshape) (test co de = 420) Nonreactive Nonreactive HEMOGLOBIN [id number] 10:39:49* Test Item Value Reference Range Interpretation Comme nts HEMOGLOBIN A1C ELECTROPHORESIS (Speedshape) (test code = 3811) 5.8 % See_Comment [...] 5.7- 6.4% indicates increased risk for diabetes (prediabetes)."Cornetist ID - ADM VITAMIN [id number] 22:48:27* Test Item Value Reference Range Interpretation Comme nts VITAMIN B12 (Speedshape) (test c ode = 774) 227 pg/mL 213-816 Cornetist ID - MARCOTSH/FREE T4 IF UGOVGZKPY9467-41-59 22:08:28* Test Item Value Reference Range Interpretation Comme nts THYROID STIMULATING HORMONE (Speedshape) (test code = 772) 3.309 uIU/mL 0.350-4.940 Cornetist ID - JSHIV-1 ANTIGEN WITH HIV-1/2 LGFAXVUU2931-67-69 22:08:28* Test Item Value Reference Range Interpretation Comme nts HIV-1 ANTIGEN WITH HIV 1\\T\\2 ANTIBODY (2) (BEAKER) (test code = 2586) Nonreactive Nonreactive Cornetist ID - JSC-REACTIVE WTOIIPQ2526-81-51 21:49:44* Test Item Value Reference Range Interpretation Comme nts C-REACTIVE PROTEIN (BEAKER) (test code = 676) 0.35 mg/dL 0.00-0.50 Cornetist ID - JSCOMPREHENSIVE METABOLIC PHNDR3429-01-97 21:49:43* Test Item Value Reference Range Interpretation [...] GFR is not applicable for dialysis patients Cornetist ID - JSLIPID PDVZV0491-73-99 21:49:43* Test Item Value Reference Range Interpretation [...] Borderline 130-159 High 160-189 Very High >=190 Cornetist ID - JSCBC W/PLT COUNT & AUTO VSNMNJAHVMGQ5264-08-72 21:34:03* Test Item Value Reference Range Interpretation [...] Interpretation Comme nts Height (test code = 8050101142) in Weight (test code = 8544310017) lbs Systolic BP (test code = 0569675061) mmHg Diastolic BP (test code = 9886716925) mmHg Heart Rate (test code = 2212363976) bpm BSA (test code = 5798297004) 2.00 m2 Ao root diam (test code = 6514021478) 3.20 cm Aortic root (test code = 1288218031) 3.2 cm Ao root annulus (test code = 9176168142) 3.2 cm LVOT diameter (test code = 3774453657) 1.99 cm LVOT area (test code = 4647139516) 3.10 cm2 LVIDD (test code = 3758053923) 5.10 cm Left Ventricular End Diastolic Volume by Teichholz Method (test code = 0397028) 123.0 mL IVS (test code = 2968060176) 1.34 cm Interventricular Septum Diastolic Thickness by 2D (test code = 6846752) 1.34 cm LVPWD (test code = 9805316347) 1.34 cm PW (test code = 0418981889) 1.34 cm 0.6-1.1 EF(Teich) (test code = 1264744159) 41.80 % LVIDS (test code = 7747020927) 4.00 cm Left Ventricular End Systolic Volume by Teichholz Method (test code = 8161183) 71.5 mL FS (test code = 4829233141) 21 % EF - 2D (test code = 66760565) 41.80 % LA size (test code = 9966193719) 4.6 cm Pulmonic Regurgitant End Max Velocity (test code = 7645032459) 119.4 cm/s LAV(MOD-sp4) (test code = 4818826628) 95.00 mL E wave decelartion time (test code = 4078510602) 0.15 s MV stenosis pressure 1/2 time (test code = 0717514978) 45.6 ms MV Peak A Evette (test code = 8654264233) 123.8 cm/s MV Peak E Evette (test code = 8243958486) 109.7 cm/s E/A ratio (test code = 8209601085) ratio MR max PG (test code = 1877990577) 87.20 mm[Hg] MR max evette (test code = 4550769090) 466.90 cm/s Mr max evette (test code = 5539551966) 466.9 m/s MV Prop V (test code = 8764883014) 51.00 cm/s MV E/e' septal (test code = 9969681125) 8.1 cm/s Tapse (test code = 7433065598) 2.21 cm LVOT stroke volume (test code = 4410475047) 49.80 cm3 LVOT peak evette (test code = 2523229887) 89.1 cm/s LVOT mn grad (test code = 8683659965) mmHg AV LVOT peak gradient (test code = 2220534290) mmHg LVOT peak VTI (test code = 2389110385) 16.0 cm LV V1 mean (test code = 3470467598) 64.30 cm/s Aortic valve mean velocity (test code = 6088864418) 133.8 cm/s Ao peak evette (test code = 8622189908) 175.3 cm/s Ao VTI (test code = 4553992311) 32.2 cm AV area by cont VTI (test code = 0661788101) 1.6 cm2 AV area peak evette (test code = 3742091307) 1.6 cm2 Ao max PG (test code = 7087946572) 12.30 mm[Hg] AV peak gradient (test code = 1480650754) mmHg AV valve area (test code = 5281845639) 1.55 cm2 AV mean gradient (test code = 1979830273) mmHg AV regurgitation pressure 1/2 time (test code = 7625531873) 358.5 ms AI dec slope (test code = 6346787520) 364.20 cm/s2 AI max evette (test code = 9528200414) 445.80 cm/s AI max PG (test code = 4373038886) 79.50 mm[Hg] Radiology Study observation (narrative) (test code = 43791-0) LYNDSAY (test code = LYNDSAY) ?Left?Ventricle: Left [...] Item Value Reference Range Interpretation Comme [facility] POCT GLU (test code = 5991415993) 148 mg/dL 70-110 H Lab Interpretation (test cod e = 61736-7) Abnormal [facility] BudaACTIVATED PARTIAL THRMPLAS EYR0775-37-88 18:39:45* Test Item Value Reference Range Interpretation Comme [facility] APTT Patient (test [...] 30 seconds. Lab Interpretation (test code = 60478-5) Normal [facility] BudaPROTHROMBIN TIME / [id number] 18:37:42* Test Item Value Reference Range Interpretation Comme [facility] PROTIME PATIENT (test code = 5964-2) See_Comment [Automated [employer]] The system which generated this result transmitted reference range: 12.0 - 14.7 Seconds. The reference range was not used to interpret this result as normal/abnormal. INR (test code = 6301-6) Normal INR <1.1; Warfarin Therapeutic range 2.0 to 3.0 or 2.5 to 3.5, depending upon the indications. Lab Interpretation (test code = 94483-9) Normal [facility] BudaTROPONIN [id number] 18:32:01* Test Item Value Reference Range Interpretation Comments TROPONIN I (test code = 2772622585) 0.019 ng/mL See_Comment [Automated message] The system [...] of biotin. Lab Interpretation (test code = 92313-7) Normal [facility] BudaN-TERMINAL NDJ-WML6243-31-12 18:29:01* Test Item Value Reference Range Interpretation Comme nts NT-proBNP (test code = 7358130918) 2770 pg/mL See_Comment H [Automated message] The system which generated this result transmitted reference range: <=125. The reference range was not used to interpret this result as normal/abnormal. LYNDSAY (test code = LYNDSAY) Biotin has been reported to cause a negative bias, interpret results relative to patient's use of biotin. Lab Interpretation (test code = 10570-0) Abnormal [facility] BudaCOMP. METABOLIC PANEL (41520)2022-07-31 18:21:42* Test Item Value Reference Range Interpretation Comme nts NA (test code = 5578528333) 136 mmol/L 135-145 K (test code = 4372847019) 4.6 mmol/L 3.5-5.0 CL (test code = 4128088439) 104 mmol/L 98-108 CO2 TOTAL (test code = 4049700587) 26 mmol/L 23-31 AGAP (test code = 4540064987) 2-16 BUN (test code = 5489337223) 9 mg/dL 7-23 GLUCOSE (test code = 6678778200) 97 mg/dL 70-110 CREATININE (test code = 4797974807) 0.64 mg/dL 0.50-1.04 TOTAL BILI (test code = 7767097396) 0.5 mg/dL 0.1-1.1 CALCIUM (test code = 1061247969) 8.2 mg/dL 8.6-10.6 L T PROTEIN (test code = 8333950926) 6.5 g/dL 6.3-8.2 ALBUMIN (test code = 2164057721) 3.9 g/dL 3.5-5.0 ALK PHOS (test code = 1101527936) 93 U/L 34-122 ALTv (test code = 1742-6) 18 U/L 5-35 AST(SGOT) (test code = 9311470236) 19 U/L 13-40 eGFR (test code = 0159175999) mL/min/1.73m2 LYNDSAY (test code = LYNDSAY) Association [...] imaging tests). Lab Interpretation (test code = 67680-7) Abnormal [facility] BudaLIPASE2023-01-12 18:21:01* Test Item Value Reference Range Interpretation Comme nts LIPASE (test code = 7694623689) 54 U/L 0-220 Lab Interpretation (test cod e = 47581-5) Normal [facility] WITH KWVW0299-72-87 18:07:00* Test Item Value Reference Range Interpretation [...] g/dL 31.6-35.1 L RDW-SD (test code = 05791-9) 53.1 fL 39.0-49.9 H RDW-CV (test code = 788-0) 17.0 % 12.0-15.5 H PLT (test code = 777-3) See_Comment H [Automated messa ge] The system which generated this result transmitted reference range: 166 - 358 10*3/?L. The reference range was not used to interpret this result as normal/abnormal. MPV (test code = 67557-7) 8.2 fL 9.5-12.9 L NRBC/100 WBC (test code = 0628474265) See_Comment [Automated me ssage] The system which generated this result transmitted reference range: 0.0 - 10.0 /100 WBCs. The reference range was not used to interpret this result as normal/abnormal. NRBC x10^3 (test code = 8050160993) See_Comment [Automated messa ge] The system which generated this result transmitted reference range: 10*3/?L. The reference range was not used to interpret this result as normal/abnormal. GRAN MAT (NEUT) % (test code = 770-8) 64.0 % IMM GRAN % (test code = 6278372400) 0.40 % LYMPH % (test code = 736-9) 27.3 % MONO % (test code = 5905-5) 6.5 % EOS % (test code = 713-8) 1.1 % BASO % (test code = 706-2) 0.7 % GRAN MAT x10^3(ANC) (test code = 5687177870) 5.46 10*3/uL 1.88-7.09 IMM GRAN x10^3 (test code = 4015877365) 0.03 10*3/uL 0.00-0.06 LYMPH x10^3 (test code = 731-0) 2.32 10*3/uL 1.32-3.29 MONO x10^3 (test code = 742-7) 0.55 10*3/uL 0.33-0.92 EOS x10^3 (test code = 711-2) 0.09 10*3/uL 0.03-0.39 BASO x10^3 (test code = 704-7) 0.06 10*3/uL 0.01-0.07 Lab Interpretation (test code = 72739-7) Abnormal [facility] METABOLIC PANEL (NA, K, CL, CO2, GLUCOSE, BUN, CREATININE, CA)2022-05-08 06:37:01* Test Item Value Reference Range Interpretation Comme nts NA (test code = 3538927225) 137 mmol/L 135-145 K (test code = 4597106277) 3.8 mmol/L 3.5-5 CL (test code = 5257506793) 103 mmol/L 98-108 CO2 TOTAL (test code = 1096605329) 24 mmol/L 23-31 AGAP (test code = 6937024475) 2-16 BUN (test code = 5061056474) 13 mg/dL 7-23 GLUCOSE (test code = 3414669357) 90 mg/dL 70-110 CREATININE (test code = 0647582278) 0.69 mg/dL 0.5-1.04 CALCIUM (test code = 1707507476) 8.5 mg/dL 8.6-10.6 L eGFR (test code = 4868114107) mL/min/1.73m2 LYNDSAY (test code = LYNDSAY) Association [...] imaging tests). Lab Interpretation (test code = 81450-6) Abnormal [facility] BudaMAGNESIUM2022-10-20 06:37:01* Test Item Value Reference Range Interpretation Comme nts MAGNESIUM (test code = 2922147975) 2.1 mg/dL 1.7-2.4 Lab Interpretation (test cod e = 04709-7) Normal [facility] BudaPHOSPHORUS2022-10-20 06:37:01* Test Item Value Reference Range Interpretation Comme nts PHOSPHORUS (test code = 1169716688) 4.7 mg/dL 2.5-5 Lab Interpretation (test cod e = 65439-8) Normal [facility] WITH GRYN9025-18-93 06:11:54* Test Item Value Reference Range Interpretation [...] 32.4 g/dL 31.6-35.1 RDW-SD (test code = 51704-3) 51.0 fL 39-49.9 H RDW-CV (test code = 788-0) 16.5 % 12-15.5 H PLT (test code = 777-3) See_Comment H [Automated messa ge] The system which generated this result transmitted reference range: 166 - 358 10*3/?L. The reference range was not used to interpret this result as normal/abnormal. MPV (test code = 17627-3) 8.3 fL 9.5-12.9 L NRBC/100 WBC (test code = [id number]) See_Comment [Automated me ssage] The system which generated this result transmitted reference range: 0.0 - 10.0 /100 WBCs. The reference range was not used to interpret this result as normal/abnormal. NRBC x10^3 (test code = [id number]) See_Comment [Automated messa ge] The system which generated this result transmitted reference range: 10*3/?L. The reference range was not used to interpret this result as normal/abnormal. GRAN MAT (NEUT) % (test code = 770-8) 64.5 % IMM GRAN % (test code = [id number]) 0.50 % LYMPH % (test code = 736-9) 27.1 % MONO % (test code = 5905-5) 6.6 % EOS % (test code = 713-8) 0.6 % BASO % (test code = 706-2) 0.7 % GRAN MAT x10^3(ANC) (test code = [id number]) 5.28 10*3/uL 1.88-7.09 IMM GRAN x10^3 (test code = [id number]) 0.04 10*3/uL 0-0.06 LYMPH x10^3 (test code = 731-0) 2.22 10*3/uL 1.32-3.29 MONO x10^3 (test code = 742-7) 0.54 10*3/uL 0.33-0.92 EOS x10^3 (test code = 711-2) 0.05 10*3/uL 0.03-0.39 BASO x10^3 (test code = 704-7) 0.06 10*3/uL 0.01-0.07 Lab Interpretation (test code = 65537-2) [facility]AUTOMATED)2022-05-07 01:18:10* Test Item Value Reference Range Interpretation Comme nts POCT GLU (test code = 1123964610) 120 mg/dL 70-110 H Lab Interpretation (test cod e = 18758-3) Abnormal [facility] BudaType and Screen - ONCE [id number] 05:46:35* Test Item Value Reference Range Interpretation Comme nts ABO & RH (test code = 20) O POSITIVE Performed at [facility] Laboratory Services - [facility] Blood [address] Free: [phone] No. [id number] IAT (test code = 1185) Negative Performed at [facility] Laboratory Services - [facility] Blood [address] Free: [phone] No. [id number] [facility] METABOLIC PANEL (NA, K, CL, CO2, GLUCOSE, BUN, CREATININE, CA)2022-05-05 08:22:57* Test Item Value Reference Range Interpretation Comme nts NA (test code = 7774407215) 136 mmol/L 135-145 K (test code = 3981547659) 4.9 mmol/L 3.5-5 CL (test code = 5885089845) 108 mmol/L 98-108 CO2 TOTAL (test code = 6212030309) 22 mmol/L 23-31 L AGAP (test code = 2088533114) 2-16 BUN (test code = 7074886720) 12 mg/dL 7-23 GLUCOSE (test code = 5194351471) 155 mg/dL 70-110 H CREATININE (test code = 3393652569) 0.63 mg/dL 0.5-1.04 CALCIUM (test code = 1705137404) 8.4 mg/dL 8.6-10.6 L eGFR (test code = 4597763614) mL/min/1.73m2 LYNDSAY (test code = LYNDSAY) Association [...] imaging tests). Lab Interpretation (test code = 25470-6) Abnormal [facility] BudaPROTHROMBIN TIME / [id number] 08:22:37* Test Item Value Reference Range Interpretation Comme [facility] PROTIME PATIENT (test code = 5964-2) See_Comment [Automated [employer]] The system which generated this result transmitted reference range: 10.1 - 12.6 Seconds. The reference range was not used to interpret this result as normal/abnormal. INR (test code = 6301-6) Normal INR <1.1; Warfarin Therapeutic range 2.0 to 3.0 or 2.5 to 3.5, depending upon the indications. Lab Interpretation (test code = 19352-6) Normal [facility] BudaaPTT2022-10-17 08:22:37* Test Item Value Reference Range Interpretation Comme [facility] APTT Patient (test code = 3173-2) See_Comment [Automated [employer]] The system which generated this result transmitted reference range: 26 - 36 Seconds. The reference range was not used to interpret this result as normal/abnormal. Lab Interpretation (test code = 38866-1) Normal [facility] BudaFIBRINOGEN2022-10-17 08:22:37* Test Item Value Reference Range Interpretation Comme [facility] Fibrinogen (test code = 6537990648) 294 mg/dL 167-453 Lab Interpretation (test cod e = 48106-7) Normal [facility] BudaCBC WITH [id number] 08:15:01* Test Item Value Reference Range Interpretation Comme [facility] WBC (test code = 6690-2) See_Comment [Automated [employer] ge] The system which generated this result transmitted reference range: 4.30 - 11.10 10*3/?L. The reference range was not used to interpret this result as normal/abnormal. RBC (test code = 789-8) See_Comment [Automated [employer] ge] The system which generated this result [...] g/dL 31.6-35.1 L RDW-SD (test code = 71432-3) 52.9 fL 39-49.9 H RDW-CV (test code = 788-0) 16.8 % 12-15.5 H PLT (test code = 777-3) See_Comment H [Automated messa ge] The system which generated this result transmitted reference range: 166 - 358 10*3/?L. The reference range was not used to interpret this result as normal/abnormal. MPV (test code = 60998-5) 8.3 fL 9.5-12.9 L NRBC/100 WBC (test code = 5161412432) See_Comment [Automated [employer] ssage] The system which generated this result transmitted reference range: 0.0 - 10.0 /100 WBCs. The reference range was not used to interpret this result as normal/abnormal. NRBC x10^3 (test code = 7527793226) See_Comment [Automated messa ge] The system which generated this result transmitted reference range: 10*3/?L. The reference range was not used to interpret this result as normal/abnormal. GRAN MAT (NEUT) % (test code = 770-8) 86.4 % IMM GRAN % (test code = 0694748445) 0.40 % LYMPH % (test code = 736-9) 11.7 % MONO % (test code = 5905-5) 1.1 % EOS % (test code = 713-8) 0.0 % BASO % (test code = 706-2) 0.4 % GRAN MAT x10^3(ANC) (test code = 0488624715) 6.36 10*3/uL 1.88-7.09 IMM GRAN x10^3 (test code = 2072436462) 0.03 10*3/uL 0-0.06 LYMPH x10^3 (test code = 731-0) 0.86 10*3/uL 1.32-3.29 L MONO x10^3 (test code = 742-7) 0.08 10*3/uL 0.33-0.92 L EOS x10^3 (test code = 711-2) 0.03-0.39 L BASO x10^3 (test code = 704-7) 0.03 10*3/uL 0.01-0.07 Lab Interpretation (test code = 65723-5) [facility]normal [facility] BudaVITAMIN D, [id number] 20:14:03* Test Item Value Reference Range Interpretation Comme [facility] VIT D 25OH (test code = 79764-7) 22 ng/mL 25-80 L LYNDSAY (test code = LYNDSAY) Deficiency: <20 ng/mLInsufficiency: 20-24 ng/mLOptimal: 25-80 ng/mL Lab Interpretation (test code = 74668-6) Abnormal [facility] (NA, K, CL, CO2, GLUCOSE, BUN, CREATININE, CA)2022-04-15 11:27:57* Test Item Value Reference Range Interpretation Comme [facility] NA (test code = 8956106676) 138 mmol/L 135-145 K (test code = 1672144905) 3.9 mmol/L 3.5-5 CL (test code = 1502451081) 106 mmol/L 98-108 CO2 TOTAL (test code = 9735426346) 23 mmol/L 23-31 AGAP (test code = 9133167248) 2-16 BUN (test code = 1287377108) 10 mg/dL 7-23 GLUCOSE (test code = 6447134305) 91 mg/dL 70-110 CREATININE (test code = 4507442005) 0.65 mg/dL 0.5-1.04 CALCIUM (test code = 7302144716) 8.1 mg/dL 8.6-10.6 L eGFR (test code = 7127150025) mL/min/1.73m2 LYNDSAY (test code = LYNDSAY) Association [...] imaging tests). Lab Interpretation (test code = 04522-6) Abnormal [facility] BudaSTROKE Protocol - Transthoracic echo (TTE) 2022-04-14 22:07:33* Test Item Value Reference Range Interpretation Comme nts Height (test code = 8424135558) in Weight (test code = 5419885567) lbs Systolic BP (test code = 9807091304) mmHg Diastolic BP (test code = 8686718330) mmHg Heart Rate (test code = 8737176832) bpm BSA (test code = 2987865798) 1.94 m2 TASV (test code = 0902284166) 15.5 cm/s LVIDD (test code = 7087147335) 6.00 cm Left Ventricular End Diastolic Volume by Teichholz Method (test code = 7135138) 183.0 mL IVS (test code = 2055369643) 1.09 cm Interventricular Septum Diastolic Thickness by 2D (test code = 5253021) 1.09 cm LVPWD (test code = 7108837553) 0.94 cm PW (test code = 0397956073) 0.94 cm 0.6-1.1 EF(Teich) (test code = 0355079828) 40.30 % LVIDS (test code = 0273471327) 4.80 cm Left Ventricular End Systolic Volume by Teichholz Method (test code = 4857863) 109.2 mL FS (test code = 3297320240) 20 % EF - 2D (test code = 92156712) 40.30 % LVOT diameter (test code = 7593502729) 2.05 cm LVOT area (test code = 8495579180) 3.30 cm2 Ao root diam (test code = 7268147438) 3.10 cm Aortic root (test code = 3571156447) 3.1 cm Ao root annulus (test code = 2471935919) 3.1 cm LA size (test code = 1206277091) 4.2 cm LAV(MOD-sp4) (test code = 2442380638) 64.90 mL MV Peak A Evette (test code = 0795212213) 115.7 cm/s E wave decelartion time (test code = 0765525235) 0.15 s MV Peak E Evette (test code = 3874622024) 106.2 cm/s E/A ratio (test code = 8154259765) ratio LVOT stroke volume (test code = 4615718429) 48.30 cm3 LVOT peak evette (test code = 0555868786) 78.4 cm/s LVOT mn grad (test code = 4244151574) mmHg AV LVOT peak gradient (test code = 1493468694) mmHg LVOT peak VTI (test code = 3715545421) 14.7 cm LV V1 mean (test code = 7144739298) 51.40 cm/s Ao peak evette (test code = 0961213421) 154.7 cm/s AV area peak evette (test code = 1413398489) 1.7 cm2 Ao max PG (test code = 8458940109) 9.60 mm[Hg] AV peak gradient (test code = 6429032756) mmHg AV regurgitation pressure 1/2 time (test code = 7169645276) 257.3 ms AI dec slope (test code = 3481972369) 498.10 cm/s2 AI max evette (test code = 1116339222) 437.60 cm/s AI max PG (test code = 8484279714) 77.80 mm[Hg] Tapse (test code = 1834714581) 2.19 cm LA Volume Index (BP) (test code = 9015622355) 32.0 mL/m2 LA volume (BP) (test code = 2492646025) 62.1 mL LAV(MOD-sp2) (test code = 4020838400) 52.70 mL A4C EF (test code = 3534635866) 44.80 % EF(sp4-el) (test code = 3779005985) 45.20 % SV(MOD-sp4) (test code = 8512330973) 71.20 mL SV(sp4-el) (test code = 0890074629) 73.90 mL LV Diastolic Volume (BP) (test code = 6216371483) 146.3 mL A2C EF (test code = 7078111592) 52.00 % EF(MOD-bp) (test code = 6347717387) 46.70 % EF(sp2-el) (test code = 8270538632) 52.40 % LV Systolic Volume (BP) (test code = 1379955995) 77.9 mL SV(MOD-bp) (test code = 4312143732) 68.40 mL SV(MOD-sp2) (test code = 4502498239) 69.20 mL EF (test code = 1895073190) Left Ventricular Stroke Volume by 2-D Biplane-MOD (test code = 7596941) 68.4 mL Radiology Study observation (narrative) (test code = 83396-3) LYNDSAY (test code = LYNDSAY) ?Left?Ventricle: Left [...] [facility] BudaKEPPRA (LEVETIRACETAM)2022-04-14 16:48:36* Test Item Value Reference Range Interpretation Comme [facility] KEPPRA (test code = 9075015075) 12-46 L LYNDSAY (test code = LYNDSAY) Therapeutic range: 12-46 ?g/mL ? ?Toxic: Not well established.Test developed and characteristics determined by [facility] Laboratory Services. Lab Interpretation (test code = 90412-5) Abnormal [facility] BudaBasi Metabolic Panel (Na, K, Cl, CO2, Glucose, BUN, Creatinine, Ca)2022-04-14 10:50:11* Test Item Value Reference Range Interpretation Comme [facility] NA (test code = 5379183550) 136 mmol/L 135-145 K (test code = 4267720568) 3.8 mmol/L 3.5-5 CL (test code = 6369956202) 105 mmol/L 98-108 CO2 TOTAL (test code = 1290925755) 25 mmol/L 23-31 AGAP (test code = 9397622491) 2-16 BUN (test code = 8051656948) 9 mg/dL 7-23 GLUCOSE (test code = 3610399695) 101 mg/dL 70-110 CREATININE (test code = 6181517053) 0.66 mg/dL 0.5-1.04 CALCIUM (test code = 2824552625) 8.1 mg/dL 8.6-10.6 L eGFR (test code = 2400016205) mL/min/1.73m2 LYNDSAY (test code = LYNDSAY) Association [...] imaging tests). Lab Interpretation (test code = 17061-5) Abnormal [facility] BudaMagensium, [id number] 10:50:11* Test Item Value Reference Range Interpretation Comme nts MAGNESIUM (test code = 6498405494) 1.9 mg/dL 1.7-2.4 Lab Interpretation (test cod e = 78088-1) Normal [facility] BudaThyroid Stimulating [id number] 22:21:44 * Test Item Value Reference Range Interpretation Comme nts TSH (test code = 3484369498) See_Comment Biotin has been reported to cause a negative bias, interpret results relative to patient's use of biotin. [Automated message] The system which generated this result transmitted reference range: 0.45 - 4.70 mIU/L. The reference range was not used to interpret this result as normal/abnormal. Lab Interpretation (test code = 14465-2) Normal [facility] BudaGLYCOSYLATED HEMOGLOBIN (A1C)2022-04-13 21:53:43* Test Item Value Reference Range Interpretation Comme nts HGB A1C (test code = 4548-4) 5.8 % 4-5.7 H LYNDSAY (test code = LYNDSAY) Reference RangesNormal: <5.7%Prediabetes: 5.7 - 6.4%Diabetes: > 6.5% Lab Interpretation (test code = 90582-9) Abnormal [facility] BudaFASTENCOM[facility] LIPID PANEL (00520)(TOTAL CHOLESTEROL, TRIGLYCERIDES, HDL)2022-04-13 21:34:53* Test Item Value Reference Range Interpretation Comme nts CHOL (test code = 2036169715) 201 mg/dL 120-200 H HDL (test code = 8603196659) 56 mg/dL See_Comment [Automated ezzai - how [employer] [place]] The system which generated this result transmitted reference range: >=50. The reference range was not used to interpret this result as normal/abnormal. HDLC RATIO (test code = 0169308516) See_Comment [Automated ezzai - how [employer] [place]] The system which generated this result transmitted reference range: <=4.5. The reference range was not used to interpret this result as normal/abnormal. TRIG (test code = 3151769763) 355 mg/dL 30-170 H LDL CHOL (test code = 98067-6) 74 mg/dL See_Comment [Automated [employer]] The system which generated this result transmitted reference range: <=160. The reference range was not used to interpret this result as normal/abnormal. VLDL (test code = 6334259141) 71 mg/dL 5-60 H Lab Interpretation (test code = 24722-8) Abnormal [facility] BudaTroponin I - Code Vllmiy5272-53-60 18:46:27* Test Item Value Reference Range Interpretation Comments TROPONIN I (test code = 0099898334) 0.013 ng/mL See_Comment [Automated message] The system [...] of biotin. Lab Interpretation (test code = 96222-7) Normal [facility]udaBacardinal [facility] rehabilitation center Metabolic Panel (NA, K, CL, CO2, Glucose, BUN, Creatinine, CA) - Code [id number] 18:35:07* Test Item Value Reference Range Interpretation Comme nts NA (test code = 7458896065) 136 mmol/L 135-145 K (test code = 9931814887) 4.3 mmol/L 3.5-5 CL (test code = 6108956843) 105 mmol/L 98-108 CO2 TOTAL (test code = 7350767138) 27 mmol/L 23-31 AGAP (test code = 0355719997) 2-16 BUN (test code = 5535219641) 8 mg/dL 7-23 GLUCOSE (test code = 1150361616) 130 mg/dL 70-110 H CREATININE (test code = 5208931262) 0.75 mg/dL 0.5-1.04 CALCIUM (test code = 1855909585) 8.5 mg/dL 8.6-10.6 L eGFR (test code = 4853299745) mL/min/1.73m2 LYNDSAY (test code = LYNDSAY) Association [...] imaging tests). Lab Interpretation (test code = 17272-1) Abnormal [facility] BudaaPTT - Code Pwelsa5150-03-37 18:32:46* Test Item Value Reference Range Interpretation Comme [facility] APTT Patient (test [...] 30 seconds. Lab Interpretation (test code = 01993-8) Normal [facility] BudaProthrombin Time / INR - Code Efepjk1589-92-76 18:30:45* Test Item Value Reference Range Interpretation Comme [facility] PROTIME PATIENT (test code = 5964-2) See_Comment [Automated [employer]] The system which generated this result transmitted reference range: 12.0 - 14.7 Seconds. The reference range was not used to interpret this result as normal/abnormal. INR (test code = 6301-6) Normal INR <1.1; Warfarin Therapeutic range 2.0 to 3.0 or 2.5 to 3.5, depending upon the indications. Lab Interpretation (test code = 11125-3) Normal [facility] without Diff - Code Sucapw9518-87-32 18:23:07* Test Item Value Reference Range Interpretation [...] result as normal/abnormal. MPV (test code = 23881-3) 8.1 fL 9.5-12.9 L RDW-CV (test code = 788-0) 16.1 % 12-15.5 H RDW-SD (test code = 96099-8) 49.2 fL 39-49.9 NRBC x10^3 (test code = 7964045215) See_Comment [Automated messa ge] The system which generated this result transmitted reference range: 10*3/?L. The reference range was not used to interpret this result as normal/abnormal. NRBC/100 WBC (test code = 8950897850) See_Comment [Automated messa ge] The system which generated this result transmitted reference range: 0.0 - 10.0 /100 WBCs. The reference range was not used to interpret this result as normal/abnormal. IPF % (test code = 4784775042) Lab Interpretation (test code = 89246-7) Abnormal [facility] BudaTROPONIN [id number] 21:06:40* Test Item Value Reference Range Interpretation Comments TROPONIN I (test code = 2114110602) 0.005 ng/mL See_Comment [Automated message] The system [...] of biotin. Lab Interpretation (test code = 33626-5) Normal [facility] BudaCOMP. METABOLIC PANEL (63509)2021-11-23 20:55:42* Test Item Value Reference Range Interpretation Comme nts NA (test code = 8832317359) 137 mmol/L 135-145 K (test code = 9513288418) 4.3 mmol/L 3.5-5.0 CL (test code = 3078764140) 104 mmol/L 98-108 CO2 TOTAL (test code = 5326978394) 22 mmol/L 23-31 L AGAP (test code = 1624982954) 2-16 BUN (test code = 4400574222) 15 mg/dL 7-23 GLUCOSE (test code = 1224752107) 114 mg/dL 70-110 H CREATININE (test code = 7732269483) 0.68 mg/dL 0.50-1.04 TOTAL BILI (test code = 5192457292) 0.5 mg/dL 0.1-1.1 CALCIUM (test code = 6437650596) 9.1 mg/dL 8.6-10.6 T PROTEIN (test code = 4143399429) 7.3 g/dL 6.3-8.2 ALBUMIN (test code = 8126508578) 4.4 g/dL 3.5-5.0 ALK PHOS (test code = 9858191676) 243 U/L 34-122 H ALTv (test code = 1742-6) 24 U/L 5-35 AST(SGOT) (test code = 9916894020) 30 U/L 13-40 eGFR (test code = 4811264306) mL/min/1.73m2 LYNDSAY (test code = LYNDSAY) Association [...] imaging tests). Lab Interpretation (test code = 67689-1) Abnormal [facility] BudaLIPASE2022-05-07 20:55:22* Test Item Value Reference Range Interpretation Comme nts LIPASE (test code = 8142554956) 96 U/L 0-220 Lab Interpretation (test cod e = 09028-2) Normal [facility] BudaPOCT [id number] 20:46:00* Test Item Value Reference Range Interpretation Comme nts POCT PREG (test code = 1605) negative On board controls acceptable with C Line (test code = 3574) present POCT PREG LOT # (test code = 3575) [id number] POCT PREG TEST DATE ( test code = 3576) 04/18/2023 Lab Interpretation (test cod e = 42492-4) Normal [facility] BudaCB WITH [id number] 20:40:38* Test Item Value Reference Range Interpretation [...] 31.8 g/dL 31.6-35.1 RDW-SD (test code = 04470-6) 53.7 fL 39.0-49.9 H RDW-CV (test code = 788-0) 17.2 % 12.0-15.5 H PLT (test code = 777-3) See_Comment H [Automated messa ge] The system which generated this result transmitted reference range: 166 - 358 10*3/?L. The reference range was not used to interpret this result as normal/abnormal. MPV (test code = 48493-4) 8.5 fL 9.5-12.9 L NRBC/100 WBC (test code = 2463252028) See_Comment [Automated me ssage] The system which generated this result transmitted reference range: 0.0 - 10.0 /100 WBCs. The reference range was not used to interpret this result as normal/abnormal. NRBC x10^3 (test code = 9803608713) <0.01 See_Comment [Automated messa ge] The system which generated this result transmitted reference range: 10*3/?L. The reference range was not used to interpret this result as normal/abnormal. GRAN MAT (NEUT) % (test code = 770-8) 53.7 % IMM GRAN % (test code = 5661847471) 0.90 % LYMPH % (test code = 736-9) 32.6 % MONO % (test code = 5905-5) 10.1 % EOS % (test code = 713-8) 1.5 % BASO % (test code = 706-2) 1.2 % GRAN MAT x10^3(ANC) (test code = 7119892276) 4.98 10*3/uL 1.88-7.09 IMM GRAN x10^3 (test code = 3784362958) 0.08 10*3/uL 0.00-0.06 H LYMPH x10^3 (test code = 731-0) 3.02 10*3/uL 1.32-3.29 MONO x10^3 (test code = 742-7) 0.94 10*3/uL 0.33-0.92 H EOS x10^3 (test code = 711-2) 0.14 10*3/uL 0.03-0.39 BASO x10^3 (test code = 704-7) 0.11 10*3/uL 0.01-0.07 H Lab Interpretation (test code = 41931-3) Abnormal [facility] BudaPOCT GLUCOSE (AUTOMATED)2021-11-23 20:17:33* Test Item Value Reference Range Interpretation Comme nts POCT GLU (test code = 3617553542) 111 mg/dL 70-110 H Notified Provide r Lab Interpretation (test code = 34035-1) Abnormal [facility] BudaPA TEST, THINPREP, [id number] 00:00:00 * Test Item Value Reference Range Interpretation Comme nts SOURCE: (test code = 8001) Endocervical SLIDES: (test code = 8011) 1 LMP: (test code = 8021) 06/03/2021 SPECIMEN ADEQUACY: (test code = 99009) (NOTE) INTERPRETATION: (test code = 01808) ASCUS/EPITH. ABNORMALITY; SEE BELOW REAL ESTATE PARALEGAL: (test code = 8101) CHANA Thacker(ASCP)[facility] PATHOLOGIST INTERPRETATION BY: (test code = 8122) Nahid Russell M.D. LOCATION: (test code = 70851) (NOTE) CPT: (test code = 8140) (NOTE) PAP TEST, THINPREP, [id number] 00:00:00* Test Item Value Reference Range Interpretation Comme nts SOURCE: (test code = 8001) Endocervical SLIDES: (test code = 8011) 1 LMP: (test code = 8021) 06/03/2021 SPECIMEN ADEQUACY: (test code = 95368) (NOTE) INTERPRETATION: (test code = 58169) ASCUS/EPITH. ABNORMALITY; SEE BELOW REAL ESTATE PARALEGAL: (test code = 8101) CHANA Thacker(ASCP)[facility] PATHOLOGIST INTERPRETATION BY: (test code = 8122) Nahid Russell M.D. LOCATION: (test code = 17807) (NOTE) CPT: (test code = 8140) (NOTE) HPV HIGH RISK WITH GENOTYPE, [id number] 00:00:00* Test Item Value Reference Range Interpretation Comme nts HPV HIGH RISK INTERP (test c ode = 03451) POSITIVE HPV 16 (test code = 44296) POSITIVE HPV 18 (test code = 37384) NEGATIVE HPV, HR, OTHER GENOTYPES (te st code = 99035) POSITIVE HPV HIGH RISK WITH GENOTYPE, [id number] 00:00:00* Test Item Value Reference Range Interpretation Comme nts HPV HIGH RISK INTERP (test c ode = 06353) POSITIVE HPV 16 (test code = 65760) POSITIVE HPV 18 (test code = 40628) NEGATIVE HPV, HR, OTHER GENOTYPES (te st code = 79460) POSITIVE [id number] 03:22:48* Test Item Value Reference Range Interpretation Comme nts APPEARANCE (test code = 8825211915) Hazy Clear A COLOR (test code = 9287240768) Yellow Yellow PH (test code = 2359857971) 4.8-8.0 SP GRAVITY (test code = 8037094531) 1.003-1.030 GLU U QUAL (test code = 8964983517) Normal Normal BLOOD (test code = 6166844541) Negative Negative Interference fro m ascorbic acid may cause false negative results. KETONES (test code = 9478106801) 5 mg/dL Negative A PROTEIN (test code = 2887-8) Negative Negative UROBILIN (test code = 6335847872) 4.0 mg/dL Normal A BILIRUBIN (test code = 6591581116) Negative Negative NITRITE (test code = 5991695696) Negative Negative LEUK GRUPO (test code = 1578430691) Negative Negative RBC/HPF (test code = 9315914867) See_Comment [Automated [employer]] The system which generated this result transmitted reference range: 0 - 3 HPF. The reference range was not used to interpret this result as normal/abnormal. WBC/HPF (test code = 1406047355) <1 See_Comment [Automated [employer]] The system which generated this result transmitted reference range: 0 - 5 HPF. The reference range was not used to interpret this result as normal/abnormal. BACTERIA (test code = 5673212603) Few Negative A SQ EPITH (test code = 8289823875) HPF Lab Interpretation (test code = 65299-3) Abnormal [facility] BudaURINALYSIS2021-08-29 03:22:48* Test Item Value Reference Range Interpretation Comme nts APPEARANCE (test code = 5313954349) Hazy Clear A COLOR (test code = 8264137234) Yellow Yellow PH (test code = 2926746962) 4.8-8.0 SP GRAVITY (test code = 4808617705) 1.003-1.030 GLU U QUAL (test code = 1129376722) Normal Normal BLOOD (test code = 2279929612) Negative Negative KETONES (test code = 2397468871) 5 mg/dL Negative A PROTEIN (test code = 2887-8) Negative Negative UROBILIN (test code = 2672677386) 4.0 mg/dL Normal A BILIRUBIN (test code = 5590950135) Negative Negative NITRITE (test code = 6066135368) Negative Negative LEUK GRUPO (test code = 5737814089) Negative Negative RBC/HPF (test code = 4418447566) See_Comment [Automated [employer]] The system which generated this result transmitted reference range: 0 - 3 HPF. The reference range was not used to interpret this result as normal/abnormal. WBC/HPF (test code = 1213383688) <1 See_Comment [Automated [employer]] The system which generated this result transmitted reference range: 0 - 5 HPF. The reference range was not used to interpret this result as normal/abnormal. BACTERIA (test code = [id number]) Few Negative A SQ EPITH (test code = 4030003568) HPF Lab Interpretation (test code = 01918-1) Abnormal [facility] [id number] 02:45:00* Test Item Value Reference Range Interpretation Comments TROPONIN I (test code = 6479856617) 0.002 ng/mL See_Comment [Automated message] The system [...] of biotin. Lab Interpretation (test code = 25507-2) Normal [facility] [id number] 02:45:00* Test Item Value Reference Range Interpretation Comme nts TROPONIN I (test code = 0711354179) 0.002 ng/mL See_Comment [Automated [employer]] The system which generated this result transmitted reference range: <=0.034. The reference range was not used to interpret this result as normal/abnormal. LYNDSAY (test code = LYNDSAY) Lab Interpretation (test code = 25926-3) [facility] [id number] 02:41:57* Test Item Value Reference Range Interpretation Comme nts NT-proBNP (test code = 8233743919) 169 pg/mL See_Comment H [Automated message] The system which generated this result transmitted reference range: <=125. The reference range was not used to interpret this result as normal/abnormal. LYNDSAY (test code = LYNDSAY) Biotin has been reported to cause a negative bias, interpret results relative to patient's use of biotin. Lab Interpretation (test code = 72144-3) Abnormal [facility] [id number] 02:41:57* Test Item Value Reference Range Interpretation Comme nts NT-proBNP (test code = 8558346357) 169 pg/mL See_Comment H [Automated messa ge] The system which generated this result transmitted reference range: <=125. The reference range was not used to interpret this result as normal/abnormal. LYNDSAY (test code = LYNDSAY) Lab Interpretation (test code = 81649-5) [facility] METABOLIC PANEL (46499)2021-03-17 02:09:13* Test Item Value Reference Range Interpretation Comme nts NA (test code = 0935624478) 137 mmol/L 135-145 K (test code = 0977176037) 4.2 mmol/L 3.5-5.0 CL (test code = 3377016130) 102 mmol/L 98-108 CO2 TOTAL (test code = 6050779927) 25 mmol/L 23-31 AGAP (test code = 2474918786) 2-16 BUN (test code = 6928322429) 18 mg/dL 7-23 GLUCOSE (test code = 9805494917) 144 mg/dL 70-110 H CREATININE (test code = 0341409024) 0.77 mg/dL 0.50-1.04 TOTAL BILI (test code = 0273542854) 0.4 mg/dL 0.1-1.1 CALCIUM (test code = 4881708150) 8.9 mg/dL 8.6-10.6 T PROTEIN (test code = 0135673161) 6.8 g/dL 6.3-8.2 ALBUMIN (test code = 1497790580) 3.9 g/dL 3.5-5.0 ALK PHOS (test code = 9630155203) 84 U/L 34-122 ALTv (test code = 1742-6) 13 U/L 5-35 AST(SGOT) (test code = 8850394333) 17 U/L 13-40 eGFR (test code = 7697289591) mL/min/1.73m2 LYNDSAY (test code = LYNDSAY) Association [...] imaging tests). Lab Interpretation (test code = 03992-2) Abnormal [facility]. METABOLIC PANEL (49316)2021-03-17 02:09:13* Test Item Value Reference Range Interpretation Comme nts NA (test code = 9323466924) 137 mmol/L 135-145 K (test code = 5653203079) 4.2 mmol/L 3.5-5.0 CL (test code = 5598266303) 102 mmol/L 98-108 CO2 TOTAL (test code = 6612214598) 25 mmol/L 23-31 AGAP (test code = 1883751603) 2-16 BUN (test code = 4624401135) 18 mg/dL 7-23 GLUCOSE (test code = 0547829093) 144 mg/dL 70-110 H CREATININE (test code = 3776158208) 0.77 mg/dL 0.50-1.04 TOTAL BILI (test code = 9288138725) 0.4 mg/dL 0.1-1.1 CALCIUM (test code = 7185963160) 8.9 mg/dL 8.6-10.6 T PROTEIN (test code = 2058892741) 6.8 g/dL 6.3-8.2 ALBUMIN (test code = 8586019367) 3.9 g/dL 3.5-5.0 ALK PHOS (test code = 6069773667) 84 U/L 34-122 ALTv (test code = 1742-6) 13 U/L 5-35 AST(SGOT) (test code = 9339804095) 17 U/L 13-40 eGFR (test code = 6254187716) mL/min/1.73m2 LYNDSAY (test code = LYNDSAY) Lab Interpretation (test cod e = 17258-4) Abnormal [facility] WITH [id number] 01:56:33* Test Item Value Reference Range Interpretation Comme nts WBC (test code = 6690-2) See_Comment H [Automated [employer]] The system which generated this result transmitted reference range: 4.30 - 11.10 10*3/?L. The reference range was not used to interpret this result as normal/abnormal. RBC (test code = 789-8) See_Comment [Automated [employer]] The system which generated this result [...] g/dL 31.6-35.1 L RDW-SD (test code = 96017-4) 55.5 fL 39.0-49.9 H RDW-CV (test code = 788-0) 18.9 % 12.0-15.5 H PLT (test code = 777-3) See_Comment H [Automated messa ge] The system which generated this result transmitted reference range: 166 - 358 10*3/?L. The reference range was not used to interpret this result as normal/abnormal. MPV (test code = 35058-2) 8.2 fL 9.5-12.9 L NRBC/100 WBC (test code = 7315140692) See_Comment [Automated [employer] ssage] The system which generated this result transmitted reference range: 0.0 - 10.0 /100 WBCs. The reference range was not used to interpret this result as normal/abnormal. NRBC x10^3 (test code = 6457698237) <0.01 See_Comment [Automated messa ge] The system which generated this result transmitted reference range: 10*3/?L. The reference range was not used to interpret this result as normal/abnormal. GRAN MAT (NEUT) % (test code = 770-8) 61.7 % IMM GRAN % (test code = 4423721175) 0.80 % LYMPH % (test code = 736-9) 28.5 % MONO % (test code = 5905-5) 6.3 % EOS % (test code = 713-8) 1.8 % BASO % (test code = 706-2) 0.9 % GRAN MAT x10^3(ANC) (test code = 6521532229) 7.31 10*3/uL 1.88-7.09 H IMM GRAN x10^3 (test code = 0801063304) 0.09 10*3/uL 0.00-0.06 H LYMPH x10^3 (test code = 731-0) 3.38 10*3/uL 1.32-3.29 H MONO x10^3 (test code = 742-7) 0.75 10*3/uL 0.33-0.92 EOS x10^3 (test code = 711-2) 0.21 10*3/uL 0.03-0.39 BASO x10^3 (test code = 704-7) 0.11 10*3/uL 0.01-0.07 H Lab Interpretation (test code = 60174-1) Abnormal [facility] WITH [id number] 01:56:33* Test Item Value Reference Range Interpretation [...] g/dL 31.6-35.1 L RDW-SD (test code = 20570-1) 55.5 fL 39.0-49.9 H RDW-CV (test code = 788-0) 18.9 % 12.0-15.5 H PLT (test code = 777-3) See_Comment H [Automated messa ge] The system which generated this result transmitted reference range: 166 - 358 10*3/?L. The reference range was not used to interpret this result as normal/abnormal. MPV (test code = 69569-1) 8.2 fL 9.5-12.9 L NRBC/100 WBC (test code = 7453583376) See_Comment [Automated me ssage] The system which generated this result transmitted reference range: 0.0 - 10.0 /100 WBCs. The reference range was not used to interpret this result as normal/abnormal. NRBC x10^3 (test code = 7740142564) <0.01 See_Comment [Automated messa ge] The system which generated this result transmitted reference range: 10*3/?L. The reference range was not used to interpret this result as normal/abnormal. GRAN MAT (NEUT) % (test code = 770-8) 61.7 % IMM GRAN % (test code = 4245101374) 0.80 % LYMPH % (test code = 736-9) 28.5 % MONO % (test code = 5905-5) 6.3 % EOS % (test code = 713-8) 1.8 % BASO % (test code = 706-2) 0.9 % GRAN MAT x10^3(ANC) (test code = 9751865744) 7.31 10*3/uL 1.88-7.09 H IMM GRAN x10^3 (test code = 0645031503) 0.09 10*3/uL 0.00-0.06 H LYMPH x10^3 (test code = 731-0) 3.38 10*3/uL 1.32-3.29 H MONO x10^3 (test code = 742-7) 0.75 10*3/uL 0.33-0.92 EOS x10^3 (test code = 711-2) 0.21 10*3/uL 0.03-0.39 BASO x10^3 (test code = 704-7) 0.11 10*3/uL 0.01-0.07 H Lab Interpretation (test code = 57509-0) [facility]normal [facility] NOW RAPID TESTING)2021-03-17 01:38:12* Test Item Value Reference Range Interpretation Comme nts SARS-CoV-2 Rapid ID NOW (test code = 42121-5) Not Detected Not Detected LYNDSAY (test code = LYNDSAY) ID NOW COVID-19 As say is an isothermal nucleic acid amplification test intended for the qualitative detection of nucleic acid from SARS-CoV-2 viral RNA in nasopharyngeal (TOP FRAME MAKER) specimens. It is used under Emergency [...] clinically indicated. Lab Interpretation (test code = 76941-9) Normal [facility] (ID NOW RAPID TESTING)2021-03-17 01:38:12* Test Item Value Reference Range Interpretation Comme nts SARS-CoV-2 Rapid ID NOW (raisa t code = 47633-8) Not Detected Not Detected LYNDSAY (test code = LYNDSAY) Lab Interpretation (test cod e = 75285-2) [facility] (ID NOW RAPID TESTING)2021-02-19 17:42:45* Test Item Value Reference Range Interpretation Comme nts SARS-CoV-2 Rapid ID NOW (test code = 08918-8) Not Detected Not Detected LYNDSAY (test code = LYNDSAY) ID NOW COVID-19 As say is an isothermal nucleic acid amplification test intended for the qualitative detection of nucleic acid from SARS-CoV-2 viral RNA in nasopharyngeal (TOP FRAME MAKER) specimens. It is used under Emergency [...] clinically indicated. Lab Interpretation (test code = 59322-3) Normal [facility] ABDOMEN PELVIS W [id number] 17:24:55Thickening of the gastric antrum and duodenal [...] Interpretation Comme nts APPEARANCE (test code = 6510786894) Hazy Clear A COLOR (test code = 1404068868) Mabel Yellow A PH (test code = 4969723792) 4.8-8.0 SP GRAVITY (test code = 0047729262) 1.003-1.030 H GLU U QUAL (test code = 6086372902) Normal Normal BLOOD (test code = 4904206812) Negative Negative KETONES (test code = 3227824515) 5 mg/dL Negative A PROTEIN (test code = 2887-8) 30 mg/dL Negative A UROBILIN (test code = 4036665429) 4.0 mg/dL Normal A BILIRUBIN (test code = 7720550587) 4 mg/dL Negative A NITRITE (test code = 6664668922) Negative Negative LEUK GRUPO (test code = 7532003436) Negative Negative RBC/HPF (test code = 2751164730) See_Comment H [Automated messa ge] The system which generated this result transmitted reference range: 0 - 3 HPF. The reference range was not used to interpret this result as normal/abnormal. WBC/HPF (test code = 2515497720) See_Comment H [Automated messa ge] The system which generated this result transmitted reference range: 0 - 5 HPF. The reference range was not used to interpret this result as normal/abnormal. BACTERIA (test code = 3771874607) Few Negative A MUCOUS (test code = 7989494729) Moderate Negative LPF A SQ EPITH (test code = 3379568791) HPF CA OXALATE (test code = 0092151739) See_Comment H [Automated messa ge] The system which generated this result transmitted reference range: <=1 HPF. The reference range was not used to interpret this result as normal/abnormal. Ictotest (test code = 4567574902) Negative Lab Interpretation (test code = 23252-9) [facility]normal [facility] Metabolic [id number] 16:34:55* Test Item Value Reference Range Interpretation Comme nts NA (test code = 0493061604) 139 mmol/L 135-145 K (test code = 0414487745) 4.3 mmol/L 3.5-5.0 CL (test code = 0853028997) 105 mmol/L 98-108 CO2 TOTAL (test code = 1123476939) 26 mmol/L 23-31 AGAP (test code = 1640771773) 2-16 BUN (test code = 8188929638) 11 mg/dL 7-23 GLUCOSE (test code = 6153605221) 95 mg/dL 70-110 CREATININE (test code = 3609370418) 0.70 mg/dL 0.50-1.04 TOTAL BILI (test code = 9514052718) 0.6 mg/dL 0.1-1.1 CALCIUM (test code = 8146541095) 8.9 mg/dL 8.6-10.6 T PROTEIN (test code = 9928357857) 7.7 g/dL 6.3-8.2 ALBUMIN (test code = 5167145535) 4.1 g/dL 3.5-5.0 ALK PHOS (test code = 0682327102) 79 U/L 34-122 ALTv (test code = 1742-6) 10 U/L 5-35 AST(SGOT) (test code = 4128253763) 22 U/L 13-40 eGFR (test code = 3357209535) mL/min/1.73m2 LYNDSAY (test code = LYNDSAY) Association [...] [facility], [id number] 16:34:14* Test Item Value Reference Range Interpretation Comme nts LIPASE (test code = 6705928430) 45 U/L 0-220 Lab Interpretation (test cod e = 67215-8) Normal [facility] with [id number] 16:21:12* Test Item Value Reference Range Interpretation [...] g/dL 31.6-35.1 L RDW-SD (test code = 42408-8) 54.4 fL 39.0-49.9 H RDW-CV (test code = 788-0) 18.3 % 12.0-15.5 H PLT (test code = 777-3) See_Comment H [Automated messa ge] The system which generated this result transmitted reference range: 166 - 358 10*3/?L. The reference range was not used to interpret this result as normal/abnormal. MPV (test code = 59255-3) 8.5 fL 9.5-12.9 L NRBC/100 WBC (test code = 8700912798) See_Comment [Automated [employer] ssage] The system which generated this result transmitted reference range: 0.0 - 10.0 /100 WBCs. The reference range was not used to interpret this result as normal/abnormal. NRBC x10^3 (test code = 0666746855) <0.01 See_Comment [Automated messa ge] The system which generated this result transmitted reference range: 10*3/?L. The reference range was not used to interpret this result as normal/abnormal. GRAN MAT (NEUT) % (test code = 770-8) 78.3 % IMM GRAN % (test code = 1594230527) 0.40 % LYMPH % (test code = 736-9) 15.4 % MONO % (test code = 5905-5) 4.8 % EOS % (test code = 713-8) 0.1 % BASO % (test code = 706-2) 1.0 % GRAN MAT x10^3(ANC) (test code = 4251960324) 7.15 10*3/uL 1.88-7.09 H IMM GRAN x10^3 (test code = 2060913943) 0.04 10*3/uL 0.00-0.06 LYMPH x10^3 (test code = 731-0) 1.41 10*3/uL 1.32-3.29 MONO x10^3 (test code = 742-7) 0.44 10*3/uL 0.33-0.92 EOS x10^3 (test code = 711-2) <0.03 0.03-0.39 L BASO x10^3 (test code = 704-7) 0.09 10*3/uL 0.01-0.07 H Lab Interpretation (test code = 89081-3) Abnormal [facility] Consult Notes Date/Time Note Provider Source 2024-01-10 12:39:30 Associated Order(s): CONSULT CARDIOLOGY [facility] Cardiology Consult PCP: PATIENT DOES NOT HAVE A PCP Date of Service: 01/10/2024 CHIEF COMPLAINT/reason for consult: Chest pain HISTORY OF PRESENT ILLNESS This is a 53 years old female with past medical history of smoking, COPD, hypertension, obesity, nonobstructive coronary artery disease, systolic and diastolic heart failure, left ventricular thrombosis and pulm hypertension. She presented to [facility] emergency room with chest pain. She has [...] (chronic obstructive pulmonary disease) Diverticulitis Epilepsy Hypertension [place] (myocardial infarction) 07/20/2007 Slipped disc Stomach cancer Substance abuse Marijuana daily-for anxiety Past Surgical History: Procedure Laterality Date ANTERIOR CERVICAL FUSION CHOLECYSTECTOMY HAND/FINGER SURGERY UNLISTED Bilateral 3 L hand, 3 R hand METATARSAL OSTEOTOMY Right 08/14/2015 Surgeon: Luis Jones Jr., ESTHER; Location: [facility] TONSILLECTOMY Family History Problem Relation [...] pulmonary disease) Obesity Coronary artery disease involving [place] coronary artery of [place] heart without angina pectoris Snores Cigarette smoker [...] further assistance. Kylee Montez MD, FACC, AMADOR Host Division of Cardiovascular Medicine [facility] [email or web address] 2023-12-15 08:28:19 Associated Order(s): CONSULT CARDIOLOGY [facility] Cardiology Consult PCP: PATIENT DOES NOT HAVE A PCP Date of Service: 12/15/2023 CHIEF COMPLAINT/reason for consult: Heart failure HISTORY OF PRESENT ILLNESS This is a 53 years old female with past medical history of smoking, COPD, hypertension, obesity, nonobstructive coronary artery disease, systolic and diastolic heart failure, left ventricular thrombosis and pulm hypertension. She presented to [facility] emergency room with dyspnea, chest pain and [...] (chronic obstructive pulmonary disease) Diverticulitis Epilepsy Hypertension [place] (myocardial infarction) 07/20/2007 Slipped disc Stomach cancer Substance abuse Marijuana daily-for anxiety Past Surgical History: Procedure Laterality Date ANTERIOR CERVICAL FUSION CHOLECYSTECTOMY HAND/FINGER SURGERY UNLISTED Bilateral 3 L hand, 3 R hand METATARSAL OSTEOTOMY Right 08/14/2015 Surgeon: Luis Jones Jr., ESTHER; Location: [facility] TONSILLECTOMY Family History Problem Relation [...] pain, unspecified type Coronary artery disease involving [place] coronary artery of [place] heart without angina pectoris Snores Cigarette smoker [...] further assistance. Kylee Montez MD, FACC, AMADOR Host Division of Cardiovascular Medicine [facility] 2023-11-27 14:57:00 Associated Order(s): CONSULT ADULT PHYSICAL THERAPY 11/27/2023 Physical therapy note: Duplicate consult. Sami Loza. JeffryPT, DPT,CMSR Sami Teran PT [facility] 2023-11-25 10:16:00 Associated Order(s): CONSULT ADULT [...] (chronic obstructive pulmonary disease) Diverticulitis Epilepsy Hypertension [place] (myocardial infarction) 07/20/2007 Slipped disc Stomach cancer Substance abuse Marijuana daily-for anxiety PSH: Past Surgical History: Procedure Laterality Date ANTERIOR CERVICAL FUSION CHOLECYSTECTOMY HAND/FINGER SURGERY UNLISTED Bilateral 3 L hand, 3 R hand METATARSAL OSTEOTOMY Right 08/14/2015 Surgeon: Luis Jones Jr., ESTHER; Location: [facility] TONSILLECTOMY Prior Living Situation: lives [...] -Pain Management: Nursing Notified COMMUNICATION Primary Language: Uzbek Able to Verbalize needs: Yes Vision:good; no [...] Treatment Time in Minutes: 30 min Sami Teran,PT, DPT,CMSR [facility] - Health History and Physical Notes Date/Time Note Provider Source 2024-01-09 22:04:15 [facility] Hospitalist Admission H&P Date of Service: 01/09/2024 CHIEF COMPLAINT: Patient with complaints of chest pain and a history of cardiomyopathy with left ventricular thrombus HISTORY OF PRESENT ILLNESS Heather Turner is a 53 year old female who presents with chest discomfort. Patient had extensive cardiac workup done recently at [facility]. At that time, patient was noted to [...] a while. Patient recently started coming to [facility] as she had been going to [facility]. At this time, she will be admitted [...] (chronic obstructive pulmonary disease) Diverticulitis Epilepsy Hypertension [place] (myocardial infarction) 07/20/2007 Slipped disc Stomach cancer Substance abuse Marijuana daily-for anxiety Pseudoseizures PAST SURGICAL HISTORY Past Surgical History: Procedure Laterality Date ANTERIOR CERVICAL FUSION CHOLECYSTECTOMY HAND/FINGER SURGERY UNLISTED Bilateral 3 L hand, 3 R hand METATARSAL OSTEOTOMY Right 08/14/2015 Surgeon: Luis Jones Jr., DPM; Location: [facility] TONSILLECTOMY ALLERGIES Allergies Allergen Reactions Green Tea [...] edema versus atypical pneumonia. RL: 4131 AFC: [id number] End of report CHEST 1 VW Narrative [...] consolidation or pleural effusion. No pneumothorax. RL: 9444 End of Report SSMENT: 1. Chest pain [...] high risk of morbidity and mortality. 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 [...] (chronic obstructive pulmonary disease) Diverticulitis Epilepsy Hypertension [place] (myocardial infarction) 07/20/2007 Slipped disc Stomach cancer Substance abuse Marijuana daily-for anxiety Past Surgical History: Procedure Laterality Date ANTERIOR CERVICAL FUSION CHOLECYSTECTOMY HAND/FINGER SURGERY UNLISTED Bilateral 3 L hand, 3 R hand METATARSAL OSTEOTOMY Right 08/14/2015 Surgeon: Luis Jones Jr., ESTHER; Location: [facility] TONSILLECTOMY Family History Problem Relation [...] EKG: sinus rhythm Assessment & Plan Heather Tunrer is a 53 year old female with [...] DVT- On Eliquis Code Status: Full Code [employer] EMERGENCY PHYSICIAN STAFF [facility] 2023-11-22 13:30:57 CCU Team Admit H&P [...] lumbar spinal stenosis, and depression presenting from [facility] ED due to SOB. Patient with NSTEMI [...] (chronic obstructive pulmonary disease) Diverticulitis Epilepsy Hypertension [place] (myocardial infarction) 07/20/2007 Slipped disc Stomach cancer Substance abuse Marijuana daily-for anxiety Prior to Admission medications Medication Sig Start Date End Date Taking? Authorizing Provider metoprolol succinate XL 25 mg 24 hr tablet Take 1 tablet by mouth every morning. 05/11/23 Yes Doctor Unassigned, [place] spironolactone 25 mg tablet Take 1 tablet by mouth in the morning and 1 tablet in the evening. 09/30/23 Yes Doctor Unassigned, [place] DULoxetine 30 mg capsule Take 1 capsule by mouth in the morning. Doctor Unassigned, [place] furosemide 20 mg tablet Take 1 tablet by mouth every morning and evening. Doctor Unassigned, [place] Lacosamide (VIMPAT) 100 mg tablet Take 1 [...] 8 (eight) hours as needed. Doctor Unassigned, [place] pantoprazole 40 mg EC tablet Take 40 mg by mouth daily. Doctor Unassigned, [place] amLODIPine (NORVASC) 10 mg tablet Take 1 Tab by mouth daily. 09/20/15 Kylee Montez MD carvedilol (COREG) 6.25 mg tablet Take 1 Tab by mouth 2 (two) times daily with meals. 09/20/15 Kylee Montez MD lisinopril (PRINIVIL,ZESTRIL) 40 mg tablet Take 1 Tab by mouth daily. 09/20/15 Kylee Montez MD loratadine (CLARITIN LIQUI-GEL) 10 mg capsule Take by mouth daily. Doctor Unassigned, [place] MULTIVITAMIN ORAL Take 1 Tab by mouth daily. Doctor Unassigned, [place] omega-3 fatty acids-vitamin E (FISH OIL) 1,000 mg capsule Take 1 g by mouth daily. Doctor Unassigned, [place] Allergies Allergen Reactions Green Tea Other - See comments Seizures Diclofenac Hypertension Keppra [Levetiracetam] Other - See comments Makes seizures worse Past surgical history: Past Surgical History: Procedure Laterality Date ANTERIOR CERVICAL FUSION CHOLECYSTECTOMY HAND/FINGER SURGERY UNLISTED Bilateral 3 L hand, 3 R hand METATARSAL OSTEOTOMY Right 08/14/2015 Surgeon: Luis Jones Jr., DPM; Location: [facility] TONSILLECTOMY Allergies: Allergies Allergen Reactions Green [...] Friends and Family: Not on file Attends Jainism Services: Not on file Active Member of [...] Otherwise, Sonographically unremarkable right upper quadrant. RL: 5152 HS:Y CHEST PULMONARY ANGIOGRAM Result Date: 11/22/2023 1. Right lung lower lobe segmental pulmonary embolism. The patient is already on anticoagulation for lower extremity DVT. 2. Mild cardiomegaly. 3. Left adrenal nodule consider follow-up with elective contrast CT. XR SHOULDER 2+ VW RIGHT Result Date: 11/22/2023 Impression: 1. No acute osseous abnormality. 2. Chronic findings as detailed. RL: 9555 End of Report LOWER EXTREMITY VEIN WITH [...] consolidation or pleural effusion. No pneumothorax. RL: 2005 End of Report SSMENT/PLAN: Heather Turner is a 53 year old female admitted to the hospital with: Decompensated acute on chronic HFrEF 15-20% EF Cardiogenic shock NSTEMI Congestive hepatopathy Lactic acidosis LV thrombus HTN Iron deficiency anemia Patient in cardiogenic shock with lactic acidosis and congestive hepatopathy on milrinone and lasix. New LV thrombus identified on TTE, currently on heparin gtt. Negative [place] Criteria. Blood cultures NGTD. Received cefepime 1 [...] ordering referrals and/or communicating with other health healthcare account manager (not separately reported), documenting clinical information in the electronic or other health record, and care coordination (not separately reported). 53 yo F with cardiogenic shock and PE Acute decompensated HFrEF NSTEMI Pulmonary embolism Polysubstance use LV thrombus COPD Elevated lactate- started on milrinone on 11/21 Continue milrinone Continue anticoagulation RHC/LHC today for BiV failure Cr Altamirano MD Sliver Lap Machine Tender [facility] Cardiology 11/23/23 [facility] 2023-11-22 02:28:50 MEDICINE [facility] PCP: PATIENT DOES NOT HAVE A PCP Date of Service: 11/21/2023 CHIEF COMPLAINT: SOB History of Present Illness Heather Turner is a 53 year old female with a PMH significant for HFrEF (~35% 05/2023), HTN, Smoker, COPD, chronic low back pain, depression presenting from [facility] ED due to SOB. Pt states her home pulse ox was reading 86% and was having trouble catching her breath. Associated sx include PETERSON, orthopnea, CP that is substernal, pressure-like, and non radiating. She says the SOB started earlier today with productive cough. Denies fevers or chills. No recent sick contacts. States she was treated for pneumonia at [facility] 2 weeks ago with levaquin and prednisone [...] (chronic obstructive pulmonary disease) Diverticulitis Epilepsy Hypertension [place] (myocardial infarction) 07/20/2007 Slipped disc Stomach cancer Substance abuse Marijuana daily-for anxiety Past Surgical History: Procedure Laterality Date ANTERIOR CERVICAL FUSION CHOLECYSTECTOMY HAND/FINGER SURGERY UNLISTED Bilateral 3 L hand, 3 R hand METATARSAL OSTEOTOMY Right 08/14/2015 Surgeon: Luis Jones Jr., ESTHER; Location: [facility] TONSILLECTOMY Family History Problem Relation [...] Depakote - c/w flomax Pain UncontrolledTylenol and [place] Prophylaxis: DVT- heparin Stress Ulcer: pantoprazole Code Status: addressed: Full Code Cris Mcnally, Internal Medicine [facility] Team Associated attestation - Ivis Mcdermott MD [...] results to the patient. Ivis Mcdermott MD Sliver Lap Machine Tender Department of Internal Medicine Division of Cardiovascular Disease [facility] Procedure Notes Date/Time Note Provider Source 2023-11-23 15:17:41 Left Heart Cath/Coronary Angiography Date of Service: 11/23/2023 3:18 PM Indication/Diagnosis: heart failure Consent source: self Consent type: indications/complications discussed with patient/legal guardian; written consent obtained Time out completed: yes Aseptic technique: Chlorprep Local Anesthesia: 1% lidocaine without epinephrine Sedation: fentanyl 50 mcg, Versed 2 mg Access site: right radial artery, RIJ [place] 4.0 5fr 8 Fr IJ sheath [place] Rosalba Closure Method: TR Band, manual pressure [...] Faculty, was present for the entire procedure. QUYEN Ventura Associated attestation - Cris Molina MD - [...] of right sided failure. Cris Molina MD professor of criminal justice. Division of cardiovascular medicine [facility] IM-CARDIOVASCULAR DISEASE [facility] Notes Date/Time Note Provider Source 2024-04-03 [...] in no apparent distress, Alma Gould RN [facility] 2024-04-03 00:10:43 Report to Campbell CAMPOS. Ely Hernández RN [facility] 2024-04-02 22:25:58 Pt having seizure like activity as I walked in pt. Activity lasting about 40 seconds. Pt alert and able to answer questions immediately after activity. Yesenia Hightower RN [facility] 2024-04-02 20:44:51 Pt arrived via person WC with complaints of feeling like her heart failure was acting up and her pulse ox machine was reading 94% and Hr 61 at home which is low for her. Pt states she has had 6 seizures today. Was seen at [facility] and reports no test were performed and [...] meds for a month d/t financial issues. 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 Mireille Cardenas RN [facility] 2024-01-12 21:59:00 Associated Order(s): EKG-12 Lead ONCE Pre-Procedure Diagnose(s): Chest pain, unspecified type Post-Procedure Diagnose(s): Chest pain, unspecified type [facility] Emergency Department Note Patient Name: Heather Turner Date of : 1970 53 year old female Treatment Room: NH1/NH1 Primary Care Physician: Lb Lieberman Patient Escorted by: Family [5] Mode of Arrival: Personal means [1] EMS Treatment Prior to ED Arrival: HOUSECLEANER FLOOR treatment comments: prescription meds Travel and Exposure [...] (chronic obstructive pulmonary disease) Diverticulitis Epilepsy Hypertension [place] (myocardial infarction) 07/20/2007 Slipped disc Stomach cancer [...] Surgeon: Luis Jones Jr., DPM; Location: [facility] OR [facility] TONSILLECTOMY Review of Systems: Review of Systems Constitutional: Negative. HENT: Negative. Eyes: Negative. Respiratory: Negative. Breasts: Negative. Cardiovascular: Positive for chest pain. Gastrointestinal: Negative. Genitourinary: Negative. Musculoskeletal: Pain to right buttock Skin: Negative. Neurological: Negative. Psychiatric/Behavioral: Negative. Endocrine: Endocrine negative Physical Exam: ED Triage Vitals [01/12/242205] Weight 81.2 kg (179 lb) Actual or [...] 0.01 - 0.07 10*3/uL COMP. METABOLIC PANEL (17780) - Abnormal NA 140 135 - 145 [...] VW Cbc with Diff Comp. Metabolic Panel (97229) Troponin I Orders Placed This Encounter Medications [...] ED Physician in the absence of a nuclear engineering technician: yes Previous ECG: Previous ECG: Unavailable Interpretation: [...] signed by: Radha Wyatt MD 01/12/24 2342 [facility] 2024-01-12 16:22:00 TRANSITIONAL CARE MANAGEMENT ASSESSMENT 01/12/2024 Heather Turner [id number] Heather Turner is a 53 year old /White female was admitted on 01/09/24 to [facility] ICU. She was discharged on 01/10/24 with discharge disposition of HR- Routine Discharge. Admitting Physician: Darrick Altamirano Discharge Diagnosis: Hypotension No linked episodes TCM Dwb-ikji-ue-face outreach documentation: Care Transition CM made f/u call to pt post-discharge x2. No response and call went to voicemail. CM left a discreet message with purpose of call and CM's call back information. Discharge Assessment Chart Assessed: 01/12/24 TCM Outreach Completed: 01/12/24 Future Appointments: T Veronique Carrillo RN [facility] 2024-01-12 11:40:32 Care Transition CM made f/u call to pt post-discharge. No response and call went to voicemail. CM left a discreet message with purpose of call and CM's call back information. Veronique Carrillo RN, BSN Flow Worker-Transitions of Care [phone] [facility] 2024-01-10 15:32:40 Problem: Discharge Planning Goal: [...] Outcome: Adequate for discharge Addis Bates RN [facility] 2024-01-10 15:32:28 Problem: Discharge Planning Goal: [...] in pain sensation Outcome: Adequate for discharge [facility] 2024-01-10 14:55:21 Problem: Discharge Planning Goal: [...] Outcome: Adequate for discharge Wayne Merrill RN [facility] 2024-01-10 01:16:51 Problem: Discharge Planning Goal: [...] Outcome: Progressing as expected Alexandria Walsh RN [facility] 2024-01-09 22:42:54 Patient admitted to IMU for diagnosis of pneumonia, elevated D-dimer, hypotension, chest pain. Patient agrees to admission, discussed plan of care with patient and family. Patient is awake, alert, oriented, resp reg unlabored, color appropriate for race, PIV intact x2. No adverse reaction to medications administered while in ED. Belongings with patient to unit. Report to BETH Reyez. T [facility] 2024-01-09 22:35:43 Report given to BETH Reyez IMU [facility] 2024-01-09 20:04:51 Patent resting EMT Sheri Harding RN [facility] 2024-01-09 16:09:08 Patient states: "I started having chest pain this morning" Reports history of [place], blood clots in heart, lung and legs, CHF. Malinda Andres RN [facility] - Health 2024-01-09 16:07:00 Associated Order(s): EKG-12 Lead ROUTINE ONCE Pre-Procedure Diagnose(s): Chest pain, unspecified type Post-Procedure Diagnose(s): Chest pain, unspecified type [facility] Emergency Department Note Patient Name: Heather Turner Date of : 1970 53 year old female Treatment Room: NH2/NH2 Primary Care Physician: Lb Lieberman Patient Escorted [...] SOB that started this morning. Hx of [place], PE and CHF. She rated her pain [...] vomiting or diarrhea. History provided by: Patient director of pediatric rehabilitation used: No Past Medical History/Immunizations: Past Medical History: Diagnosis Date Anxiety Extreme Bipolar disorder Breast pain 09/18/2015 Cauda equina compression 11/21/2023 diagnosed 08/2023 Congestive heart failure 2021 COPD (chronic obstructive pulmonary disease) Diverticulitis Epilepsy Hypertension [place] (myocardial infarction) 07/20/2007 Slipped disc Stomach cancer [...] 08/14/2015 Surgeon: Luis Jones Jr., DPM; Location: [facility] TONSILLECTOMY Review of Systems: Review [...] TROPONIN I N-TERMINAL PRO-BNP COMP. METABOLIC PANEL (58539) D-DIMER Orders Placed This Encounter Medications aspirin [...] ED Physician in the absence of a nuclear engineering technician: yes Previous ECG: Previous ECG: Compared to [...] SOB that started this morning. Hx of [place], PE and CHF. She rated her pain [...] SOB that started this morning. Hx of [place], PE and CHF. She rated her pain [...] and patient evaluation by RUBY Berman MD, [facility] Emergency Medicine [facility] 2023-12-17 10:18:53 Care Transitions Nurse CM made f/u call to patient post-discharge. No answer, call went to voicemail. CM left discreet message with CM's call back information. CM will try again at a later time. SUZY LindseyN, RN, CCRN Flow Worker, Transitions of Care [email or web address] Jodi Berg RN [facility] 2023-12-15 10:45:32 Problem: Respiratory Function - [...] Outcome: Adequate for discharge Delaney Laird RN [facility] 2023-12-15 05:41:00 Problem: Respiratory Function - Impaired Goal: Able to cough effectively 12/15/2023 0641 by Annette Mota RN Outcome: Progressing as expected 12/15/2023 0640 by Annette Mota RN Outcome: Progressing as expected Goal: Adequate oxygenation 12/15/2023 0641 by Annette Mtoa RN Outcome: Progressing as expected 12/15/2023 0640 [...] Goal: Effective communication Outcome: Progressing as expected [facility] 2023-12-14 18:20:42 Patient admitted to [facility] ADC 2215 for diagnosis of shortness of breath. Patient agrees to admission, discussed plan of care with patient and family. Patient is awake, A&Ox4, RR even and unlabored on RA. Color appropriate for race. PIV intact x1. No adverse reaction to medications administered while in ED. Belongings with patient to unit. [facility] 2023-12-14 18:19:06 Nurse Report Report given to BETH Romero. Chief complaint, assessment findings, infusion verify and orders reviewed. Plan of care discussed with patient and both nurses. Patient/family members verbalized understanding. Lisette Murphy RN [facility] 2023-12-14 14:54:55 Report given to Amy Murphy RN. Updated on patient's medical condition, history of present condition and plan of care. Leo Hyde RN [facility] 2023-12-14 13:30:46 Patient arrived in wheelchair with c/o shortness of breath starting this morning. Patient attempted to try her albuterol at home with no success. Patient attempt to feel better with husbands oxygen. Started to complaining of reproducible chest pain approximately 2 hours ago. Hx: CHF Lisette Murphy RN [facility] 2023-12-14 13:24:00 AdmissionCare Guideline: Chest Pain [...] care. AdmissionCare documentation entered by: Mj Bryan [facility], 27th edition, Copyright ? 2022 [facility] [employer] [facility] All Rights Reserved. [id number] [facility] 2023-12-03 18:26:32 Pt requesting to leave AMA, patient educated on risks, and benefits of leaving AMA. Patient continues to request to leave AMA. CCU notified of patients request. Patient educated on risk and benefits. AMA paperwork signed by patient. Duong Tello RN [facility] 2023-12-03 14:42:13 Problem: Respiratory Function - Impaired Goal: Adequate oxygenation Outcome: Progressing as expected Goal: Adequate work of breathing Outcome: Progressing as expected Problem: Falls, Risk of Goal: Absence of falls Outcome: Progressing as expected [facility] 2023-12-02 17:16:35 Report to Rad with [facility], care transferred Sheri Tompkins RN [facility] 2023-12-02 16:47:06 Nurse Report Report given to Duong CAMPOS at [facility], Chief complaint, assessment findings, infusion verify and orders reviewed. Sheri Tompkins RN [facility] 2023-12-02 16:40:00 Pt tolerating bipap, updated on status, skinw/d T [facility] 2023-12-02 16:09:00 Placed on bedpan [facility] 2023-12-02 16:08:24 Report to Turner CAMPOS. 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 Selina Llanes RN [facility] 2023-12-02 12:56:00 Associated Order(s): EKG-12 Lead ROUTINE ONCE Pre-Procedure Diagnose(s): Other chest pain Post-Procedure Diagnose(s): Other chest pain [facility] Emergency Department Note Patient Name: Heather Turner Date of : 1970 53 year old female Treatment Room: NH1/NH1 Primary Care Physician: PATIENT DOES NOT HAVE A PCP Patient Escorted by: Family [5] Mode of Arrival: Personal means [1] EMS Treatment Prior to ED Arrival: HOUSECLEANER FLOOR treatment: Medication (comment) HOUSECLEANER FLOOR treatment comments: tylenol PM X2 at 0830, [...] began today. PT was recently admitted to [facility] ICU for PE, chf and cardiogenic shock [...] (chronic obstructive pulmonary disease) Diverticulitis Epilepsy Hypertension [place] (myocardial infarction) 07/20/2007 Slipped disc Stomach cancer [...] Surgeon: Luis Jones Jr., ESTHER; Location: [facility] OR Location TONSILLECTOMY Review of Systems: Review of Systems [...] 0.01 - 0.07 10*3/uL COMP. METABOLIC PANEL (47903) - Abnormal NA 138 135 - 145 [...] VW Cbc with Diff Comp. Metabolic Panel (59550) Troponin I N-Terminal Pro-Bnp BLOOD CULTURE SCREEN [...] interpretation with external provider(s): Dr. Simental of [facility] cardiology accepting to CCU. Risk Prescription drug [...] signed by: Connor Renee MD 12/02/23 1632 [facility] 2023-12-01 10:36:39 TRANSITIONAL CARE MANAGEMENT ASSESSMENT 12/01/2023 Heather Turner [id number] Heather Turner is a 53 year old /White female was admitted on 11/21/[address] She was discharged on 11/28/23 with discharge disposition of HR- Routine Discharge. Admitting Physician: Cr Altamirano Discharge Diagnosis: Decompensated acute on chronic HFrEF 15-20% EF Cardiogenic shock NSTEMI 2/2 stress induced cardiomyopathy 2/2 PE and drug use No linked episodes TCM Jyi-catz-ku-face outreach documentation: Discharge Assessment Chart Assessed: 12/01/23 [...] cost of $44. 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 to brand marketing manager .) Do you know how to take your medications?: Yes Supplies Did you receive applicable home medical supplies/equipment?: N/A Follow Up Appointment Has a follow up appointment been scheduled?: No May I assist with scheduling this appointment?: Patient has outside PCP (Patient stated she was told that her providers at at [facility] and will not be following [facility]) Do you have any [...] stated she has to follow up with [facility] clinics Do you understand your discharge [...] activity): as tolerated Were you able to machine operator hop picker all of your medications? No unable to [...] N/A Ensure they have contact info for Molecular Detection: na Have you received your DME? N/A [...] 911 or go to the emergency room EMT Madeline Mckinley RN [facility] 2023-11-30 10:41:04 TRANSITIONAL CARE MANAGEMENT ASSESSMENT 11/30/2023 Heather Turner [id number] Heather Turner is a 53 year old /White female was admitted on 11/21/[address] She was discharged on 11/28/23 with discharge disposition of HR- Routine Discharge. Admitting Physician: Cr Altamirano Discharge Diagnosis: Decompensated acute on chronic HFrEF 15-20% EF Cardiogenic shock NSTEMI 2/2 stress induced cardiomyopathy 2/2 PE and drug use No linked episodes TCM Quf-bcxj-uv-face outreach documentation: Transition CM attempted to contact patient for post discharge follow up. CM left a message with male friend contact as he stated patient was asleep and not available. Future Appointments: TNEY Mckinley RN [facility] 2023-11-28 15:39:19 Problem: Bleeding, Risk of [...] Outcome: Adequate for discharge Aliyah Francisco RN [facility] 2023-11-27 14:00:02 Problem: Discharge Planning Goal: [...] Improved activity tolerance 11/27/2023 1359 by Merlyn Ndiaye RN Outcome: Progressing as expected 11/27/2023950 by Merlyn Ndiyae RN Outcome: Progressing as expected Problem: Fluid [...] expected Goal: Reduction in pain sensation 11/27/2023 1359 by Merlyn Ndiaye RN Outcome: Progressing as expected 11/27/2023 0951 by Merlyn Ndiaye RN Outcome: Progressing as expected Problem: Skin integrity Impaired (Risk or Actual) Goal: Prevention of new skin breakdown 11/27/2023 1359 by Merlyn Ndiaye RN Outcome: Progressing as expected 11/27/2023 09 by Merlyn Ndiaye RN Outcome: Progressing as expected Merlyn Ndiaye RN [facility] [employer] 2023-11-27 09:51:54 Problem: Bleeding, Risk of Goal: [...] skin breakdown Outcome: Progressing as expected T [facility] 2023-11-27 05:16:42 Problem: Bleeding, Risk of [...] new skin breakdown Outcome: Progressing as expected Mariely Wallace RN [facility] 2023-11-25 17:12:17 Problem: Bleeding, Risk of [...] new skin breakdown Outcome: Progressing as expected [facility] 2023-11-25 05:27:41 Problem: Bleeding, Risk of [...] Outcome: Progressing as expected Luda Vee RN [facility] 2023-11-24 18:52:11 Summary: [facility] Note Spoke with Rich Spencer from [facility] at 18:12. Case #[id number]. Brice Jackson RN [facility] 2023-11-24 10:16:03 Problem: Bleeding, Risk of [...] new skin breakdown Outcome: Progressing as expected [facility] 2023-11-23 10:41:53 Problem: Bleeding, Risk of [...] Brice Jackson RN Outcome: [facility]ing as expected [facility] 10:40:04 Problem: Bleeding, Risk of Goal: [...] new skin breakdown Outcome: Progressing as expected [facility] [employer] 2023-11-22 05:54:04 Problem: Bleeding, Risk of Goal: [...] Outcome: Progressing as expected Hamlet Osullivan RN [facility] 2023-11-21 23:58:07 Patient transferred to [place] for diagnosis of chest pain, NSTEMI, COPD exacerbation Patient agrees to transfer/admit plan and verbalized understanding of plan of care, family aware of plan Patient awake alert, oriented, resp reg unlabored, skin w/d PIV patent, no s/s infiltration noted, heparin infusing No adverse reaction to medications given while in ED. Report given to [facility] EMS personnel Nery Orellana RN [facility] 2023-11-21 23:55:09 Nurse Report Report given to BETH Zuleta in [place]. Chief complaint, assessment findings, infusion verify and orders reviewed. Plan of care discussed with nurse. Nery Orellana RN [facility] 2023-11-21 23:18:14 Associated Order(s): Critical Care [...] separately billable procedures and treating other patients. [facility] 2023-11-21 23:11:13 Pt c/o difficulty breathing at this time. Pt placed on 2L O2 NC for comfort. Pérez JIMENEZ [facility] 2023-11-21 21:15:59 Summary: Triage CC: patient [...] Appears in mild distress Alma Gould RN [facility] 2023-11-21 21:07:00 EMERGENCY DEPARTMENT ENCOUNTER [facility] Patient Name: Heather Turner Date of : 1970 53 year old Exam Room:TX2/TX2 Primary Care Physician: PATIENT DOES NOT HAVE A PCP Pre- Hospital Patient Escorted by: Family [5] Mode of Arrival: Personal means [1] EMS Treatment Prior to ED Arrival: HOUSECLEANER FLOOR treatment: None ED Events Date/Time Event User [...] (chronic obstructive pulmonary disease) Diverticulitis Epilepsy Hypertension [place] (myocardial infarction) 07/20/2007 Slipped disc Stomach cancer Substance abuse Marijuana daily-for anxiety Tetanus received in last 5 years: Unknown Childhood immunizations: Up-to-date Past Surgical History Past Surgical History: Procedure Laterality Date ANTERIOR CERVICAL FUSION CHOLECYSTECTOMY HAND/FINGER SURGERY UNLISTED Bilateral 3 L hand, 3 R hand METATARSAL OSTEOTOMY Right 08/14/2015 Surgeon: Luis Jones Jr., DPM; Location: [facility] OR Location TONSILLECTOMY Allergies Allergies Allergen Reactions Green Tea [...] PLT ESTIMATE Normal Normal COMP. METABOLIC PANEL (87030) - Abnormal NA 134 (*) 135 - [...] View), 11/21/2023 9:15 PM. Ordering Physician: MEGAN RNODON. History: Chest pain. Technique: One view of the chest. Comparison: 12/11/2022. Findings: Cardiac silhouette is moderately enlarged. There is no pneumothorax. There is no consolidation or pleural effusion. Stable mild diffuse interstitial opacities are noted. Pleural and diaphragmatic contours are normal. Changes of anterior cervical discectomy and fusion are seen. IMPRESSION Impression: No consolidation or pleural effusion. No pneumothorax. RL: [id number] End of Report Orders and Treatments Orders Placed This Encounter Procedures Critical Care XR CHEST 1 VW CBC WITH DIFF COMP. METABOLIC PANEL (88077) AMYLASE TROPONIN I N-TERMINAL PRO-BNP URINALYSIS URINE [...] exacerbation. She will be transferred down to [place] to the [facility] team in the cardiology [...] on file Megan Rondon Jr., MD Clinical Sliver Lap Machine Tender [facility] Emergency Department [employer] is used frequently and may produce errors. Promptly contact for obvious discrepancies. Megan Rondon MD 11/21/232321 [facility] 2023-09-11 11:34:02 Chief Complaint Patient presents with Follow-up Hospitalization Krissy Cannon LVN [facility] 2023-08-12 16:08:34 Bryan spoke to patient and patient decided to leave AMA. AMA form signed by patient and attached to paperwork. Patient in stable condition with AMA. IV line removed and patient was assisted onto wheelchair and moved to the lobby. Patient called her prior to leaving room and will be picking up patient. ME Dumont RN [facility] 2023-08-12 15:56:21 Patient requesting to talk to provider - provider aware. Patient refused tylenol as she said medication does not improve her condition and she does not want to throw it up. Patient also refusing blood draw at this time. [facility] 2023-08-12 14:50:00 Patient's name and verified [...] (chronic obstructive pulmonary disease) Diverticulitis Epilepsy Hypertension [place] (myocardial infarction) 07/20/2007 Slipped disc Stomach cancer Substance abuse Marijuana daily-for anxiety Allergies noted in chart. Vitals obtained. Assessment performed. IV in place and patent. Placed on continuous spo2/cardiac monitoring, HR 106 Bed low and locked, secured with two rails, call light within reach. Belongings at bedside. Patient aware of plan of care. Steph Dumont RN [facility] 2023-08-12 14:17:22 Patient had witnessed seizure like activity. DO Flor at bedside. Patient stopped seizure activity and had no postictal phase. Patient coherent, alert and oriented/answering all questions appropriately. [facility] 2023-08-12 13:45:33 Patient here for chest pain that started approximately 1 hour ago. Patient had seizure like activity in the vehicle while attempting to get patient out of the car, patient had no post ictal phase. Patient c/o substernal chest pain and jaw pain. ING MACHINE OPERATOR HELPER Jasvir Reaves RN [facility] 2023-08-12 13:42:00 [facility] Emergency Department Note Patient Name: Heather Turner Date of : 1970 53 year old female Treatment Room: NH3/NH3 Primary Care Physician: PATIENT DOES NOT HAVE A PCP Patient Escorted by: Family [5] Mode of Arrival: Personal means [1] EMS Treatment Prior to ED Arrival: HOUSECLEANER FLOOR treatment: None Travel and Exposure Screening: Symptoms [...] (chronic obstructive pulmonary disease) Diverticulitis Epilepsy Hypertension [place] (myocardial infarction) 07/20/2007 Slipped disc Stomach cancer [...] 08/14/2015 Surgeon: Luis Jones Jr., DPM; Location: [facility] TONSILLECTOMY Review of Systems: Review [...] 0.01 - 0.07 10*3/uL COMP. METABOLIC PANEL (57307) - Abnormal NA 140 135 - 145 [...] Procedures Cbc with Diff Comp. Metabolic Panel (84417) Urinalysis Lactic Acid Whole Blood Troponin I [...] for follow-up Yehuda Arcos MD Specialty: PN-NEUROLOGY [facility] AND [address] [id number] [facility] Department Specialty: Emergency Medicine [address] [place] [id number] Instructions: If symptoms worsen as documented in the discharge Electronically signed by: Mj Bryan DO 08/12/23 1605 Mj Bryan DO 08/12/23 1605 [facility]
[2024-06-13] MEDS ORDERED: NA CHLORIDE 0.9% 50 ML ONE (19:34)
[2024-06-13] MEDS ORDERED: NA CHLORIDE 0.9% 100 ML ONE ×2 (19:34→20:26)
[2024-06-13 19:55] LABS: Absolute Basophils 0.1 K/uL (0-0.5); Absolute Eosinophils 0.1 K/uL (0-0.5); Absolute Lymphocytes (CBC) 1.1 K/uL (0.7-4.9); Absolute Monocytes 0.6 K/uL (0.1-1.3); Absolute Neutrophil 4.5 K/uL (1.8-8.0); Basophils % 1.6 % (0-1.3); Eosinophils % 2.3 % (0-4.4); Hematocrit 42.4 % (36.0-45.0); Lymphocytes % 17.4 % (15.3-44.8); MCH 27.9 pg (27.0-35.0); MCHC 33.1 g/dL (32.0-36.0); MCV 84.3 fL (80-100); MPV 6.7 fL (7.6-11.3); Monocytes % 8.9 % (3.3-12.3); Neutrophils % 69.8 % (41.7-73.7); Nucleated Red Blood Cells % 0.1 % (0-0); Platelets 408 thou/uL (152-406); RBC Red Blood Cell Count 5.03 M/uL (3.86-4.86); Red Cell Distribution Width 22.3 % (12.1-15.2)
[2024-06-13 20:11] LABS: ALT/SGPT 18 U/L (13-56); AST/SGOT 19 U/L (15-37); Albumin 3.1 g/dL (3.4-5.0); Albumin/Globulin Ratio 0.8 (1.1-1.8); Alkaline Phosphatase 106 U/L (45-117); Anion Gap 9.2 mEq/L (5.0-15.0); BUN Blood Urea Nitrogen 8 mg/dL (7-18); Bicarbonate 23 mEq/L (21-32); Bilirubin Total 0.2 mg/dL (0.2-1.0); Globulin 4.1 g/dL (2.3-3.5); Glomerular Filtration Rate 87 ml/min (=/>90); Glucose Level 113 mg/dL (74-106); Magnesium 2.1 mg/dL (1.6-2.4); Potassium 3.2 mEq/L (3.5-5.1); Protein, Total 7.2 g/dL (6.4-8.2); Sodium Level 141 mEq/L (136-145)
[2024-06-13 20:13] LABS: Bilirubin Direct < 0.2 mg/dL (0-0.2); Valproic Acid (Depakene) Level < 3.0 mcg/mL (50.0-100.0)
[2024-06-13] MEDS ORDERED: VALPROATE NA 500 MG/5 ML INJ IV ONE (20:25)
[2024-06-13 20:47] LABS: Specific Gravity 1.028 (1.005-1.030); Urine Bilirubin NEGATIVE (Negative); Urine Blood Negative (Negative); Urine Clarity Clear (Clear); Urine Color Light-Yellow (Yellow); Urine Glucose NEGATIVE (Negative); Urine Ketones NEGATIVE (Negative); Urine Microscopic Reflex YN NO UMIC; Urine Nitrite NEGATIVE (Negative); Urine Protein NEGATIVE (Negative); Urine Urobilinogen 1+ (Normal); Urine pH 6.5 (5.0-7.0)
[2024-06-13 20:57] LABS: Barbiturates NEGATIVE (NEGATIVE); Benzodiazepines POSITIVE (NEGATIVE); Cocaine POSITIVE (NEGATIVE); METHAMPHETAM NEGATIVE (NEGATIVE); Methadone NEGATIVE (NEGATIVE); Opiates NEGATIVE (NEGATIVE); Phencyclidine NEGATIVE (NEGATIVE); THC Cannibis POSITIVE (NEGATIVE)
[2024-06-13] MEDS ORDERED: POTASSIUM 25 MEQ EFFERV TAB ONE (21:12)
--- NOTE | 2024-06-13 21:18 | RAD REPORT ---
EXAM: CT brain without contrast HISTORY: SEIZURE COMPARISON: 11/09/2023 TECHNIQUE: Multiple contiguous axial images were obtained and a CT of the brain without contrast. Sag ittal and coronal reformats were performed. FINDINGS: No evidence of hydrocephalus, intracranial hemorrhage, or extra-axial fluid collection. The brain is normal in morphology. The calvarium is intact. The visualized paranasal sinuses and mastoid air cells are essentially clear . IMPRESSION: No evidence of acute intracranial abnormality. EXAM: CT of the cervical spine without contrast HISTORY: SEIZURE COMPARISON: None TECHNIQUE: Multiple contiguous axial images were obtained in a CT of the cervical spine without contr ast. Sagittal and coronal reformats were performed. FINDINGS: The vertebral bodies demonstrate normal height and alignment. No evidence of acute fracture or subluxation.. Stable sequelae of anterior plating spanning C3-C7. Degenerative changes of the facet articulations most pronounced at C3-4, stable. No prevertebral soft tissue swelling is seen. The posterior facets are well aligned. Normal alignment of the skull base with the cervical spine is seen. The lung apices are unremarkable. IMPRESSION: No evidence of acute osseous abnormality of the cervical spine. Stable multilevel degenerative change s as above.
--- NOTE | 2024-06-13 21:47 | RAD REPORT ---
EXAM: CT CHEST, ABDOMEN AND PELVIS WITHOUT CONTRAST CLINICAL INDICATION: Female, 54 years old. [facility] MAIN seizure, back pain Bed Name: 2 TECHNIQUE: CT chest, abdomen and pelvis was performed, without IV contrast, as per department protoco l. Axial, sagittal and coronal reconstructions were obtained. One or more of the following dose reduction techniques were used: Automated exposure control, adjustment of the mA and/or kV according to the patient size, and/or iterative reconstruction. Unless otherwise specified, incidental findings do not require dedicated imaging follow-up. COMPARISON: 05/27/2024 CT chest and 05/11/2024 CT abdomen and pelvis FINDINGS: The lack of intravenous contrast limits the sensitivity of this exam for evaluation of solid visceral organs, vascular structures, and retroperitoneum. Chest: LOWER NECK/CHEST WALL: Visualized thyroid gland and soft tissues are normal. LUNGS AND AIRWAYS: Airways are clear. No evidence of airspace or interstitial process. No suspicious nodules. Small calcified granulomas, stable. PLEURA: No pleural effusion. No pneumothorax. Hemidiaphragms are normally positioned. MEDIASTINUM AND LYMPH NODES: No mediastinal mass or fluid collection. Normal size mediastinal, hilar, and axillary lymph nodes. THORACIC AORTA: Normal caliber and configuration. PULMONARY ARTERIES: Normal caliber. HEART: Unremarkable. Abdomen/Pelvis LIVER: Normal in size and contour. No focal lesion. GALLBLADDER/BILE DUCTS: No biliary ductal dilatation. PANCREAS: No mass, ductal dilation, or chelsea-pancreatic fluid. SPLEEN: Normal size. No focal lesion. ADRENALS: Nodular left adrenal thickening with overall density averaging -3 Hounsfield units, stable appearance, and most suggestive of benign adenomas. KIDNEYS AND URETERS: Normal size and contour. No hydronephrosis. GASTROINTESTINAL TRACT: Stomach is non-dilated. Small bowel has normal course and caliber. No colonic wall thickening or pericolonic inflammatory changes. PERITONEUM: No free fluid. LYMPH NODES: No lymphadenopathy. ABDOMINAL AORTA AND OTHER VESSELS: Normal caliber aorta and IVC. URINARY BLADDER: Normal contour. REPRODUCTIVE ORGANS: No pathologic process. MUSCULOSKELETAL: No acute or suspicious osseous abnormality. ADDITIONAL FINDINGS: None IMPRESSION: No acute or significant abnormalities in the chest, abdomen, or pelvis. Stable findings as above.
--- NOTE | 2024-06-13 21:52 | EDPHYS ---
Physician Documentation [facility] Name: Heather Coon Age: 54 yrs Sex: Female : 1970 Arrival Date: 06/13/2024 Time: 19:14 Bed 2 Private MD: ED Physician Andrea Pizano HPI: 06/13 19:40 This 54 yrs old Female presents to ER via EMS with complaints of Probable Seizure. sb4 19:40 Patient states that she has been out of her Depakote for 2 months now due to 4 insurance/financial reasons. States that she has been having seizures intermittently but had 5 today at home so her son called EMS. EMS states that she had 2 more and route and administered Versed. She is no longer seizing upon arrival nor is she postictal. She is complaining only of pain in her back, knee, and arm. PROPERTY COORDINATOR: 19:22 Not cp4 Historical: - Allergies: 19:22 fluoxetine; cp4 19:22 Green Tea; cp4 19:22 Keppra; not an allergy; cp4 - PMHx: 19:22 Anxiety; Arthritis; Bipolar disorder; Cancer-Cervical; Chronic obstructive lung cp4 disease; Chronic pain; Congestive heart failure; Depression; Diverticulitis; Herniated Back Disc; Hypertension; intestinal mass; Myocardial infarction; pt reports hx of seizures; Spastic Muscles; stroke; - PSHx: 19:22 back surgery; cervical fusion; Cholecystectomy; foot; Tonsillectomy; cp4 - Immunization history:: Adult Immunizations up to date. - Infectious Disease History:: Denies. - Social history:: Smoking status: Patient denies any tobacco usage or history of. ROS: 19:40 Constitutional: Negative for fever, chills, and weight loss, sb4 19:40 MS/extremity: Positive for pain, of the low back, right knee, left wrist, 19:40 Neuro: Positive for seizure activity, Exam: 21:26 Constitutional: This is a well developed, well nourished patient who is awake, alert, sb4 and in no acute distress. Head/Face: Normocephalic, atraumatic. Eyes: Extra-ocular motions intact. Periorbital areas with no swelling, redness, or edema. ENT: Mucous membranes moist. Respiratory: No increased work of breathing, no retractions or nasal flaring. Skin: Warm, dry with normal turgor. Normal color with no rashes, no lesions, and no evidence of cellulitis. 21:26 Neuro: seizure activity, is not displayed by the patient, Vital Signs: 19:18 BP 126 / 88; Pulse 112; Resp 18; Temp 99.5; Pulse Ox 98% ; Weight 78.02 kg; Height 5 cp4 ft. 2 in. ; 21:18 BP 127 / 59; Pulse 97; Resp 20; Pulse Ox 100% ; mt4 22:00 BP 126 / 80; Pulse 105; Resp 22; Temp 98.8(O); Pulse Ox 100% on R/A; mt4 19:18 Body Mass Index 31.46 (78.02 kg, 157.48 cm) cp4 Nicole Coma Score: 19:22 Eye Response: spontaneous(4). Motor Response: obeys commands(6). Verbal Response: cp4 oriented(5). Total: 15. MDM: 19:16 Medical Screening Exam initiated sb4 21:51 Data reviewed: vital signs, nurses notes, EMS record, lab test result(s), radiologic sb4 studies, and as a result, I will discharge patient. Care significantly affected by the following Social Determinants of Health: Poor access to healthcare and/or lack of insurance, Inadequate housing, Misuse of alcohol and/or drugs. Counseling: I had a detailed discussion with the patient and/or guardian regarding the historical points, exam findings, and any diagnostic results supporting the discharge/admit diagnosis, lab results, radiology results, the need for outpatient follow up, a neurologist, to return to the emergency department if symptoms worsen or persist or if there are any questions or concerns that arise at home. 06/13 19:28 Order name: Valproic Acid (depakote); Complete Time: 20:14 sb4 06/13 19:28 Order name: Basic Metabolic Panel; Complete Time: 20:14 sb4 06/13 19:28 Order name: CBC with Diff; Complete Time: 21:58 sb4 06/13 19:28 Order name: Hepatic Function; Complete Time: 20:14 sb4 06/13 19:28 Order name: Magnesium; Complete Time: 20:14 sb4 06/13 19:28 Order name: UDS; Complete Time: 20:58 sb4 06/13 19:28 Order name: Urinalysis w/ reflexes; Complete Time: 20:47 sb4 06/13 21:57 Order name: CBC Smear Scan; Complete Time: 21:58 EDMS 06/13 19:28 Order name: Head C Spine MPR Wo Con CT; Complete Time: 21:21 sb4 06/13 19:28 Order name: CT Chest Abdomen Pelvis W/O Contrast; Complete Time: 21:48 sb4 06/13 19:28 Order name: Cardiac monitoring; Complete Time: 19:49 sb4 06/13 19:28 Order name: IV Saline Lock; Complete Time: 19:49 sb4 06/13 19:28 Order name: Labs collected and sent; Complete Time: 19:49 sb4 06/13 19:28 Order name: O2 Per Protocol; Complete Time: 19:49 sb4 06/13 19:28 Order name: O2 Sat Monitoring; Complete Time: 19:49 sb4 Administered Medications: 19:48 Drug: Promethazine IVP 12.5 mg IVP once Route: IVP; Site: left forearm; mt4 22:29 Follow up: Response: No adverse reaction mt4 19:48 Drug: Methocarbamol IVPB 1 grams IVPB once over 1 hrs; (mix in NS 100 mL) Route: IVPB; mt4 Infused Over: 1 hrs; Site: left forearm; 22:28 Follow up: Response: No adverse reaction; IV Status: Completed infusion; IV Intake: mt4 100ml 20:30 Drug: Valproic Acid IV 2.5 mg/kg IV at calculated rate once over 60 mins; (mix in 100 mt4 mL NS) Route: IV; Rate: calculated rate; Infused Over: 60 mins; Site: left femoral; 22:28 Follow up: Response: No adverse reaction; IV Status: Completed infusion; IV Intake: mt4 100ml 21:18 Drug: Potassium PO Effervescent Tablet 50 mEq PO once; dissolve in 4 ounces of water or mt4 juice Route: PO; 22:28 Follow up: Response: No adverse reaction mt4 22:15 Drug: Acetaminophen PO 1000 mg PO once Route: PO; mt4 22:54 Follow up: Response: No adverse reaction cp4 22:27 Drug: Ketorolac IVP 30 mg IVP once Route: IVP; Site: left forearm; mt4 22:45 Follow up: Response: No adverse reaction mt4 Disposition Summary: 06/13/24 21:52 Discharge Ordered Notes: Location: Home sb4 Problem: an acute exacerbation sb4 Symptoms: have improved sb4 Condition: Stable sb4 Diagnosis - Epileptic seizures related to external causes - medication noncompliance sb4 Followup: sb4 - With: Javier Ireland MD - When: 2 - 3 days - Reason: Recheck today's complaints, Re-evaluation by your physician Discharge Instructions: - Discharge Summary Sheet sb4 - Seizure, Adult, [id number] sb4 Forms: - Patient Portal Instructions sb4 - Leadership Thank You Letter sb4 Prescriptions: - Depakote 500 mg Oral Tablet - take 1 tablet ORAL route every 12 hours; 60 tablet; Refills: 0, Product sb4 Selection Permitted Addendum: 06/29/2024 10:10 I was immediately available for consultation during this patient's visit. I did not e c2 personally see the patient or discuss the patient with the NOHELIA. . Signatures: Dispatcher [employer] Mariola Tolliver PA-C PA-C sb4 Gus Canela MD MD rt Andera Pizano MD MD ec2 Mercedes Hernández 4 Olivia Marcial RN RN mt4
--- NOTE | 2024-06-13 21:52 | ER ---
Nurse's Notes [facility] Name: Heather Coon Age: 54 yrs Sex: Female : 1970 Arrival Date: 06/13/2024 Time: 19:14 Bed 2 Private MD: Diagnosis: Epileptic seizures related to external causes-medication noncompliance Presentation: 06/13 19:18 Chief complaint: EMS states: patient has had 2 seizures with them and 5 prior at home. cp4 Patient states she has been out of her medication because she can't afford it and does not know the name of it. EMS gave 5mg IM Versed and 2 mg IV versed with 10 mg IV reglan. Coronavirus screen: Client denies travel out of the [place] in the last 14 days. At this time, the client does not indicate any symptoms associated with coronavirus-19. Ebola Screen: Patient negative for fever greater than or equal to 101.5 degrees Fahrenheit, and additional compatible Ebola Virus Disease symptoms Patient denies exposure to infectious person. Patient denies travel to an Ebola-affected area in the 21 days before illness onset. No symptoms or risks identified at this time. Initial Sepsis Screen: Does the patient meet any 2 criteria? HR > 90 bpm. No. Patient's initial sepsis screen is negative. Does the patient have a suspected source of infection? No. Patient's initial sepsis screen is negative. Risk Assessment: Do you want to hurt yourself or someone else? Patient reports no desire to harm self or others. Onset of symptoms was June 13, 2024. 19:18 Method Of Arrival: EMS: [facility] cp4 19:18 Acuity: ANDER 2 cp4 Triage Assessment: 19:22 General: Appears in no apparent distress. uncomfortable, Behavior is calm, cooperative, cp4 appropriate for age. Pain: Complains of pain in bilateral hips Pain currently is 8 out of 10 on a pain scale. EENT: No signs and/or symptoms were reported regarding the EENT system. Neuro: Level of Consciousness is awake, alert, obeys commands, Oriented to person, place, time, situation. Cardiovascular: Patient's skin is warm and dry. Respiratory: Airway is patent Respiratory effort is even, unlabored. GI: No signs and/or symptoms were reported involving the gastrointestinal system. : No signs and/or symptoms were reported regarding the genitourinary system. Derm: No signs and/or symptoms reported regarding the dermatologic system. Musculoskeletal: No signs and/or symptoms reported regarding the musculoskeletal system. NET DEVELOPER: 19:22 Not cp4 Historical: - Allergies: 19:22 fluoxetine; cp4 19:22 Green Tea; cp4 19:22 Keppra; not an allergy; cp4 - PMHx: 19:22 Anxiety; Arthritis; Bipolar disorder; Cancer-Cervical; Chronic obstructive lung cp4 disease; Chronic pain; Congestive heart failure; Depression; Diverticulitis; Herniated Back Disc; Hypertension; intestinal mass; Myocardial infarction; pt reports hx of seizures; Spastic Muscles; stroke; - PSHx: 19:22 back surgery; cervical fusion; Cholecystectomy; foot; Tonsillectomy; cp4 - Immunization history:: Adult Immunizations up to date. - Infectious Disease History:: Denies. - Social history:: Smoking status: Patient denies any tobacco usage or history of. Screenin:25 [facility] ED Fall Risk Assessment (Adult) History of falling in the last 3 months, cp4 including since admission No falls in past 3 months (0 pts) Confusion or Disorientation No (0 pts) Intoxicated or Sedated No (0 pts) Impaired Gait Yes (1 pt) Mobility Assist Device Used No (0 pt) Altered Elimination No (0 pt) Score/Fall Risk Level 0 - 2 = Low Risk Oriented to surroundings, Maintained a safe environment, Assessed \T\ reinforced patient's understanding of fall precautions, Hourly rounding (assess needs \T\ fall precautionary measures) done. Abuse screen: Denies threats or abuse. Nutritional screening: No deficits noted. Tuberculosis screening: No symptoms or risk factors identified. Assessment: 19:25 Reassessment: No changes from previously documented assessment. cp4 Vital Signs: 19:18 BP 126 / 88; Pulse 112; Resp 18; Temp 99.5; Pulse Ox 98% ; Weight 78.02 kg; Height 5 cp4 ft. 2 in. ; 21:18 BP 127 / 59; Pulse 97; Resp 20; Pulse Ox 100% ; mt4 22:00 BP 126 / 80; Pulse 105; Resp 22; Temp 98.8(O); Pulse Ox 100% on R/A; mt4 19:18 Body Mass Index 31.46 (78.02 kg, 157.48 cm) cp4 Huron Coma Score: 19:22 Eye Response: spontaneous(4). Motor Response: obeys commands(6). Verbal Response: cp4 oriented(5). Total: 15. ED Course: 19:15 Patient arrived in ED. [id number] 19:16 Mariola Mahmood PA-C [facility]. sb4 19:16 Andrea Pizano MD is Attending Physician. sb4 19:18 Mercedes Hernández is Primary Nurse. cp4 19:22 Triage completed. cp4 19:22 Arm band placed on right wrist. Patient placed in an exam room, on a stretcher. cp4 19:25 Bed in low position. Call light in reach. Side rails up X2. cp4 19:25 No provider procedures requiring assistance completed. Maintain EMS IV. Dressing cp4 intact. Good blood return noted. Site clean \T\ dry. Gauge \T\ site: 22 G LFA. 19:49 Basic Metabolic Panel Sent. ha1 19:49 CBC with Diff Sent. ha1 19:49 Hepatic Function Sent. ha1 19:49 Magnesium Sent. ha1 20:59 Head C Spine MPR Wo Con CT In Process Unspecified. EDMS 20:59 CT Chest Abdomen Pelvis W/O Contrast In Process Unspecified. EDMS 21:52 Javier Ireland MD is Referral Physician. sb4 22:54 intact, bleeding controlled, No redness/swelling at site. Pressure dressing applied. cp4 22:55 Provided Education on: seizures. cp4 22:55 Seizure precautions initiated. cp4 Administered Medications: 19:48 Drug: Promethazine IVP 12.5 mg IVP once Route: IVP; Site: left forearm; mt4 22:29 Follow up: Response: No adverse reaction mt4 19:48 Drug: Methocarbamol IVPB 1 grams IVPB once over 1 hrs; (mix in NS 100 mL) Route: IVPB; mt4 Infused Over: 1 hrs; Site: left forearm; 22:28 Follow up: Response: No adverse reaction; IV Status: Completed infusion; IV Intake: mt4 100ml 20:30 Drug: Valproic Acid IV 2.5 mg/kg IV at calculated rate once over 60 mins; (mix in 100 mt4 mL NS) Route: IV; Rate: calculated rate; Infused Over: 60 mins; Site: left femoral; 22:28 Follow up: Response: No adverse reaction; IV Status: Completed infusion; IV Intake: mt4 100ml 21:18 Drug: Potassium PO Effervescent Tablet 50 mEq PO once; dissolve in 4 ounces of water or mt4 juice Route: PO; 22:28 Follow up: Response: No adverse reaction mt4 22:15 Drug: Acetaminophen PO 1000 mg PO once Route: PO; mt4 22:54 Follow up: Response: No adverse reaction cp4 22:27 Drug: Ketorolac IVP 30 mg IVP once Route: IVP; Site: left forearm; mt4 22:45 Follow up: Response: No adverse reaction mt4 Medication: 19:25 VIS not applicable for this client. cp4 Intake: 22:28 IV: 100ml; Total: 100ml. mt4 22:28 IV: 100ml; Total: 200ml. mt4 Outcome: 21:52 Discharge ordered by MD. sb4 22:54 Discharged to home via wheelchair, cp4 22:54 Condition: stable 22:54 Discharge instructions given to patient, Instructed on discharge instructions, follow up and referral plans. medication usage, Demonstrated understanding of instructions, follow-up care, medications, Prescriptions given X 1, 22:55 Patient left the ED. cp4 Signatures: Dispatcher [employer] EDMS Yovana Godoy [id number] Maria Elena Cottrell, RN RN Mariola Pichardo, PA-C PA-C sb4 Mercedes Hernández cp4 Olivia Marcial RN RN mt4
[2024-06-13 21:56] LABS: Anisocytosis 2+; Blood Morphology Comment NOTED (NOT SEEN); Ovalocytes 1+; Platelet Estimate INCR; Poikilocytosis 1+; White Blood Cell Scan OK (OK)
[2024-06-13] MEDS ORDERED: ACETAMINOPHEN 500 MG TAB ONE (22:15)
[2024-06-13] MEDS ORDERED: KETOROLAC 30 MG/ML INJ ONE (22:15)
[2024-06-14 05:33] VITALS: O2SAT 100
[2024-06-14 05:34] VITALS: BP 126/80; TEMP 98.8
== END 2024-06-13 22:55 | disposition home or self-care (01) ==
LOC: ER 19:14
DX: G40.509 Epileptic seizures related to external causes, not intractable, without status epilepticus (principal); I25.2 Old myocardial infarction; I10 Essential (primary) hypertension; I50.9 Heart failure, unspecified; J44.9 Chronic obstructive pulmonary disease, unspecified; F41.9 Anxiety disorder, unspecified
CPT/HCPCS: 85025; 80048; 36415; 83735; 80076; 80164; 81003; 80307; 70450; 71250; 72125; 74176; 99284; J2550; J2800

== ENCOUNTER 2024-07-17 10:32 | Emergency (ER) | payer OTHER ==
--- OUTSIDE RECORDS SUMMARY | 2024-07-17 10:51 | XMS REPORT | Continuity of Care Document ---
Author Name Unknown Address [address] [place] [address] [facility] thconnect Address [address] [place] [address] Care Team Providers Care Registered Nurse Name Role Phone Alina Aneta SUAREZ Primary Care Physician PANKAJ OBREGON Attending Clinician Un available AYDEE GO Attending Clinician Unavailable MARIANELA BURGESS Attending Clinician Unavailab ADAM Cabrera Attending Clinician Unavailable THOMAS LOZOYA Attending Clinician Nina MARIAH Quiroga Attending Clinician Unavailable CHRISSY MOHR Attending Clinician Unavailable CHRISSY MOHR Attending Clinician Unavailable Chrissy Mohr DO Attending Clinician [phone] Doctor Unassigned, [place] Attending Clinician U nisreenailable RADHA WYATT Attending Clinician Unavailable RADHA WYATT Attending Clinician Unavailable Gerardo CAMPOS, Veronique Conde Attending Clinician [phone] DARRICK ALTAMIRANO. Attending Clinician Unavailabl itz Del Castlilo NP, Olena Attending Clinician [phone] Jenny MITTAL, Alfonso Moseley Attending Clinician [phone] Darrick Altamirano MD. Attending Clinician [phone] Morena CAMPOS, Jodi Carter Attending Clinician Unavail able TAL BENAVIDEZ Attending Clinician Unavailable Mj Bryan DO Attending Clinician [phone] Reema ELIZONDO, Tal Attending Clinician [phone] MOJGAN SUREO Attending Clinician Unav arianna Donaldson MD, Connor Suarez Attending Clinician + [phone] Kamille ELIZONDO, Mojgan Mueller Attending Clinician + Madeline Mckinley RN Attending Clinician Unavailab MADELINE Edwards Attending Clinician Unavailable MADELINE PIERRE Attending Clinician Unavailable Megan Rondon MD Attending Clinician [phone] Cr Altamirano MD Attending Clinician [phone] Lorenzo Ventura MD, Ivis Attending Clinician [phone] Ryder Vaca MD Attending Clinici an Cris Molina MD Attending Clinician [phone] JUANY GREEN Attending Clinician Unavailable EDWARD FERRER Attending Clinician Unavailable London Loyola MD Attending Clinician Unavailab monroe Obregon MD, Pankaj Attending Clinician [phone] Edward Altamirano DO Attending Clinician [phone] Bud ELIZONDO, Edward Attending Clinician [phone] QUIN MONET Attending Clinician Unavail able Kael HEAD START ASSISTANT TEACHER, Quin R Attending Clinician [phone] MJ BRYAN Attending Clinician Unavailable Provider, Not In System Attending Clinician Unav arianna Burgess MD, Marianela Hamilton Attending Clinician [phone] Abbi ELIZONDO, Aydee Attending Clinician [phone] Dallas Gomez R Attending Clinician [phone] Jose ELIZONDO, Adam Attending Clinician [phone] Mercedez ELIZONDO, Harry Attending Clinician [phone] Rocael ELIZONDO, Antwon Attending Clinician Unavailab monroe Bui MD, Yue Attending Clinician [phone] Connie Davey MD Attending Clinician [phone] Jasen ELIZONDO, Mariah Attending Clinician [phone] Valerio ELIZONDO, Thomas Reddy Attending Clinician + [phone] CONNIE DAVEY Attending Clinician UnavailAlfonso Oh Attending Clinician Unavailable RITCHIE WARREN Attending Clinician Unavailable Briana ELIZONDO, Ritchie Stoner Attending Clinician [phone] Rk RN, Blanca Attending Clinician [phone] Reji ELIZONDO, Halima Hummel Attending Clinician +[phone] Ning Geller MD Attending Clinician [phone] Parrish Diane MD Attending Clinici an PARRISH DIANE Attending Clinician UnavailDAMI Hernández Attending Clinician Unavailable Essence ELIZONDO, Dami Attending Clinician [phone] Maria Teresa Nicole LVN Attending Clinician [phone] CHANTEL BOJORQUEZ Attending Clinician CHANTEL Kelly Attending Clinician Jack Ibrahim MD, Brandyn Otoole Attending Clinician [phone] SELINA MARTINES Attending Clinician Unavailable Sapna Vargas DO Attending Clinician [phone] Tyrel ELIZONDO, Glory Katz Attending Clinician + Selina Martines MD Attending Clinician [phone] Vaccine, [place] Pedi Attending Clinician U chelsi Pak MD, Jose Attending Clinician [phone] JOSE PAK Attending Clinician Unavailable IBIKUNLE, FOLUSHO F Attending Clinician Unavaila ble Ibikunle NUCLEAR PHYSICIAN, Folusho F Attending Clinician [phone] Brandy CAMPOS, Miky Attending Clinician Unavailab le Vincmary NUCLEAR PHYSICIAN, Shinta Attending Clinician [phone] Ebpenelope NUCLEAR PHYSICIAN, Lydia Attending Clinician [phone] Unknown, Attending Attending Clinician Unavailab le UNKNOWN, ATTENDING Attending Clinician Unavailab monroe MITTAL, Estefania S Attending Clinician [phone] Yehuda Arcos MD Attending Clinician [phone] PANKAJ OBREGON Admitting Clinician Un available MARIANELA BURGESS Admitting Clinician Unavailab ADAM Cabrera Admitting Clinician Unavailable MARIAH ALDRIDGE Admitting Clinician Unavailable CHRISSY MOHR Admitting Clinician Unavailable RADHA WYATT Admitting Clinician Unavailable DARRICK ALTAMIRANO Admitting Clinician UnavailDarrick Geiger MD Admitting Clinician [phone] TAL BENAVIDEZ Admitting Clinician Unavailable Tal Benavidez MD Admitting Clinician [phone] MOJGAN SUERO Admitting Clinician Mojgan Veras MD Admitting Clinician + CR ALTAMIRANO Admitting Clinician Unavailable CONNIE DAVEY Admitting Clinician UnavailAlfonso Oh Admitting Clinician Unavailable RITCHIE WARREN Admitting Clinician Unavailable NING GELLER Admitting Clinician Unavaila DAMI Mariscal Admitting Clinician Unavailable Dami Lowry MD Admitting Clinician [phone] BRANDYN IBRAHIM Admitting Clinician Unavailable Brandyn Ibrahim MD Admitting Clinician GLORY ESTEVES Admitting Clinician WILLIAMS Lopez Admitting Clinician Unavaila ble Payers Payer Name Policy Type Policy Number Effective Date Expirati on Date Source [facility] SMITH VORA [id number] 2023 00:00:00 [facility] [id number] 2023 00:00:00 [facility] W/ SMITHSHEILA VELASQUEZ [id number] 2023 00:00:00 2023 00:00:00 MEDICAID PENDING PENDING 2022 00:00:00 Problems Condition Name Condition Details Condition Category Status Onset Date Resolution Date Last Treatment Date Treating Clinician Comments Source 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 systolic and diastolic congestive heart failure Disease Active 01-09 00:00: 00 [facility] Hypotensio n Hypotensio n Disease Active 01-08 00:00: 00 [facility] LV (left ventricula r) mural thrombus LV (left ventricula r) mural thrombus Disease Active 12-14 00:00: 00 [facility] Pulmonary hypertensi on Pulmonary hypertensi on Disease Active 12-14 00:00: 00 [facility] Shortness of breath Shortness of breath Disease Active 12-13 00:00: 00 [facility] Other chest pain Other chest pain Disease Active 15 00:00: 00 [facility] Bilateral leg weakness Bilateral leg weakness Disease Active 2022-07 00:00: 00 [facility] Bilateral leg weakness Bilateral leg weakness Disease Active 2022-07 00:00: 00 [facility] Pneumonia Pneumonia Disease Active 2022-07 00:00: 00 [facility] Cavitary lesion of lung Cavitary lesion of lung Disease Active 2022-07 00:00: 00 [facility] Cervical myelopathy Cervical myelopathy Disease Recurre ore 2022-07 00:00: 00 [facility] Cervical disc disorder with myelopathy , high cervical region Cervical disc disorder with myelopathy , high cervical region Disease Active 2022-07 00:00: 00 [facility] Cord compressio n Cord compressio n Disease Recurre nce - 00:00: 00 [facility] Cauda equina compressio n Cauda equina compressio n Disease Active -11 00:00: 00 [facility] Seizure Seizure Disease Recurre nce -14 00:00: 00 [facility] Cardiomyop athy Cardiomyop athy Disease Active 08-01 00:00: 00 [facility] NSVT (nonsustai keisha ventricula r tachycardi a) NSVT (nonsustai keisha ventricula r tachycardi a) Disease Active 08-01 00:00: 00 [facility] Elevated brain natriureti c peptide (BNP) level Elevated brain natriureti c peptide (BNP) level Disease Active 07-31 00:00: 00 [facility] Chest pain, unspecifie d type Chest pain, unspecifie d type Disease Active 07-31 00:00: 00 [facility] Elevated brain natriureti c peptide (BNP) level Elevated brain natriureti c peptide (BNP) level Disease Active 07-31 00:00: 00 [facility] Coronary artery disease involving resighini coronary artery of resighini heart without angina pectoris Coronary artery disease involving resighini coronary artery of resighini heart without angina pectoris Disease Active 07-31 00:00: 00 [facility] Snores Snores Disease Active 07-31 00:00: 00 [facility] Cigarette smoker Cigarette smoker Disease Active 07-31 00:00: 00 [facility] Primary hypertensi on Primary hypertensi on Disease Active 07-31 00:00: 00 [facility] Other hyperlipid emia Other hyperlipid emia Disease Active 07-31 00:00: 00 [facility] Coronary artery disease involving resighini coronary artery of resighini heart without angina pectoris Coronary artery disease involving resighini coronary artery of resighini heart without angina pectoris Disease Active 112 00:00: 00 [facility] Chronic bilateral low back pain with bilateral sciatica Chronic bilateral low back pain with bilateral sciatica Disease Active 2021-07 0-17 00:00: 00 [facility] 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 Disease Active 04-15 00:00: 00 [facility] Neuroforam inal stenosis of cervical spine Neuroforam inal stenosis of cervical spine Disease Active 04-15 00:00: 00 [facility] Stroke-lik e symptoms Stroke-lik e symptoms Disease Active 04-13 00:00: 00 [facility] Bipolar disorder, in partial remission, most recent episode manic Bipolar disorder, in partial remission, most recent episode manic Disease Active 09-27 00:00: 00 [facility] Neuroforam inal stenosis of lumbar spine Neuroforam inal stenosis of lumbar spine Disease Active 09-27 00:00: 00 [facility] Bilateral acute otitis media, recurrence not specified, unspecifie d otitis media type Bilateral acute otitis media, recurrence not specified, unspecifie d otitis media type Disease Active 09-27 00:00: 00 [facility] Lumbar spinal stenosis Lumbar spinal stenosis Disease Active 09-27 00:00: 00 [facility] Right-side d low back pain with sciatica, sciatica laterality unspecifie d Right-side d low back pain with sciatica, sciatica laterality unspecifie d Disease Active 09-27 00:00: 00 [facility] Generalize d anxiety disorder Generalize d anxiety disorder Disease Active 09-27 00:00: 00 [facility] Agoraphobi a Agoraphobi a Disease Active 09-27 00:00: 00 [facility] Bipolar disorder, in partial remission, most recent episode manic Bipolar disorder, in partial remission, most recent episode manic Disease Active 09-27 00:00: 00 [facility] Obsessive compulsive disorder Obsessive compulsive disorder Disease Active 09-27 00:00: 00 [facility] Breast mass, left Breast mass, left Disease Active 09-17 00:00: 00 [facility] Anxiety Anxiety Disease Active 09-17 00:00: 00 [facility] Lower back pain Lower back pain Disease Active 09-17 00:00: 00 [facility] High blood pressure High blood pressure Disease Active 09-17 00:00: 00 [facility] COPD (chronic obstructiv e pulmonary disease) COPD (chronic obstructiv e pulmonary disease) Disease Active 09-17 00:00: 00 [facility] Obesity Obesity Disease Active 09-17 00:00: 00 [facility] Breast pain Breast pain Disease Resolve d 09-17 00:00: 00 2015-09-18 00:00:00 2015-09-18 13:19:09 [facility] Allergies, Adverse Reactions, Alerts Allergy Name Allergy Type Status Severity Reaction(s) Onset Date Inactive Date Treating Clinician Comments Source FLUOXETI NE Allergy Active 03-29 00:00: 00 [facility] GREEN TEA Allergy Active High Other 03-29 00:00: 00 [facility] LEVETIRA CETAM Allergy Active High N\\T\\V 03-29 00:00: 00 [facility] Green Tea Propensi ty to adverse reaction s Active 03-29 00:00: 00 Seizure like activity [facility] Levetira cetam Propensi ty to adverse reaction s Active Nausea And Vomiting 03-29 00:00: 00 Intensifi es seizure [facility] Fluoxeti ne Propensi ty to adverse reaction s Active 03-29 00:00: 00 [facility] Green Tea Drug Allergy Active Other (See Comments) 03-29 00:00: 00 Seizure like activity [facility] Levetira cetam Drug Allergy Active Nausea And Vomiting 0 9- 00:00: 00 Intensifi es seizure [facility] LEVETIRA CETAM DRUG INGREDI Active Other-Cmnt 11-17 00:00: 00 [facility] Levetira cetam Propensi ty to adverse reaction s Active Other - See comments 11-17 00:00: 00 Makes seizures worse [facility] FLUOXETI NE Allergy Active Med Rash 0 1-14 00:00: 00 [facility] Green Tea Propensi ty to adverse reaction s Active 0 14 00:00: 00 [facility] GREEN TEA Allergy Active 0 - 00:00: 00 [facility] Fluoxeti ne Propensi ty to adverse reaction s Active Rash 0 08-02 00:00: 00 [facility] Fluoxeti ne Propensi ty to adverse reaction s Active Unknown - See comments 03-25 00:00: 00 [facility] FLUOXETI NE DRUG INGREDI Active Unknown-Cmnt 03-25 00:00: 00 [facility] DICLOFEN AC DRUG INGREDI Active HYPERTENSION 11-20 00:00: 00 [facility] Diclofen ac Propensi ty to adverse reaction s Active Hypertension 11-20 00:00: 00 [facility] GREEN TEA DRUG INGREDI Active Med Other-Cmnt 08-10 00:00: 00 [facility] Green Tea Propensi ty to adverse reaction s to drug Active Other - See comments 08-10 00:00: 00 Seizures [facility] FLUOXETI NE HCL DRUG INGREDI Active Hives 03-19 00:00: 00 [facility] Fluoxeti ne Hcl Propensi ty to adverse reaction s Active Hives 03-19 00:00: 00 [facility] Family History Family Member Diagnosis Comments Start Date Stop Date Sourc e Natural mother Alcohol abuse [facility] Natural mother Stroke [facility] Natural mother Alcohol abuse [facility] Natural mother Cancer [facility] Natural mother Diabetes [facility] Natural mother Heart disease [facility] Natural mother Hyperlipidemia [facility] Natural mother Kidney disease [facility] Natural mother Stroke [facility] Paternal uncle Diabetes [facility] Social History Social Habit Start Date Stop Date Quantity Comments Source History of tobacco use Passive smoker [facility] History SDOH Social Connections Get Together [facility] History SDOH Social Connections Synagogue [facility] History SDOH Social Connections Membership [facility] History SDOH Social Connections Meetings [facility] History SDOH Alcohol Frequency [facility] History SDOH Alcohol Std Drinks [facility] History SDOH Alcohol Binge [facility] History SDOH Housing Homeless Last Year [facility] ASSERTION Not [facility] Sexual orientation [facility] History of Social function 2023-08-03 00:00:00 2023-08-03 00:00:00 [facility] Alcohol intake 2023-06-02 00:00:00 2023-06-02 00:00:00 .57 /d [facility] Alcoholic beverage intake 2023-06-02 00:00:00 2023-06-02 00:00:00 Current drinker of alcohol (finding) [facility] Exposure to SARS-CoV-2 (event) 2023-05-18 00:00:00 2023-05-28 07:28:00 Not sure [facility] History SDOH Housing Unable to Pay - In the last 12 months, was there a time when you were not able to pay the mortgage or rent on time? 2023-05-26 00:00:00 2023-05-26 00:00:00 Yes [facility] Cigarettes smoked current (pack per day) - Reported 2023-05-26 00:00:00 2023-05-26 00:00:00 [facility] Cigarette pack-years 2023-05-26 00:00:00 2023-05-26 00:00:00 [facility] Tobacco use and exposure 2023-05-26 00:00:00 2023-05-26 00:00:00 Smokeless tobacco non-user [facility] History SDOH Housing Places Lived 2023-03-30 00:00:00 2023-03-30 00:00:00 1 [facility] Alcohol Comment 2023-03-29 00:00:00 2023-03-29 00:00:00 2x a week [facility] History SDOH Social Connections Phone 2022-08-01 00:00:00 2022-08-01 00:00:00 5 [facility] History SDOH Social Connections Living 2022-08-01 00:00:00 2022-08-01 00:00:00 5 [facility] History SDOH Physical Activity DPW 2022-08-01 00:00:00 2022-08-01 00:00:00 0 [facility] History SDOH Physical Activity MPS 2022-08-01 00:00:00 2022-08-01 00:00:00 0 [facility] History SDOH Financial 2022-08-01 00:00:00 2022-08-01 00:00:00 3 [facility] History SDOH Food Worry 2022-08-01 00:00:00 2022-08-01 00:00:00 1 [facility] History SDOH Food Scarcity 2022-08-01 00:00:00 2022-08-01 00:00:00 1 [facility] History SDOH Transport Med 2022-08-01 00:00:00 2022-08-01 00:00:00 2 [facility] History SDOH Transport Non-Med 2022-08-01 00:00:00 2022-08-01 00:00:00 2 [facility] Education 2022-07-31 00:00:00 2022-07-31 00:00:00 14 [facility] Sex assigned at 1970 00:00:00 1970 00:00:00 [facility] Smoking Status Start Date Stop Date Source Ex-smoker 2023-05-26 00:00:00 2023-05-26 00:00:00 [facility] Smokes tobacco daily 2023-03-29 00:00:00 [facility] Medications Ordered Medication Name Filled Medication [...] to tolerate oral medication s? Yes [facility] valproate (DEPACON) 500 mg in D5W piggyback 04-03 03:30: 00 04-03 04:49 :00 No 500mg 500 mg, IV Piggyback, ONCE NOW, 1 dose, On 04/02/24 at 2245, Administer over 30 Minutes, 100 mL [facility] divalproex (DEPAKOTE) delayed release tablet 250 mg 04-03 03:15: 00 04-03 04:07 :00 No 250mg 250 mg, Oral, ONCE NOW, 1 dose, On 04/02/24 at 2215, MICHAEL [facility] ondansetron (ZOFRAN (PF)) injection 4 mg 04-03 02:30: 00 04-03 04:58 :00 No 4mg 4 mg, Slow IV Push, ONCE, 1 dose, On 04/02/24 at 2130, MICHAEL [facility] morpHINE (4 mg/mL) injection 4 mg 04-03 02:30: 00 04-03 04:58 :00 No 4mg 4 mg, Slow IV Push, ONCE, 1 dose, On 04/02/24 at 2130, STAT [facility] divalproex ER 500 mg 24 hr tablet 04-03 00:00: 00 Yes [id number] 1000mg Take 2 tablets by mouth every 12 (twelve) hours. [facility] KCL 20 mEq tablet 2024-0 9-15 00:00: 00 04-09 04:59 :00 No [id number] 40meq Take 2 tablets by mouth in the morning for 5 days. [facility] LORazepam (ATIVAN) tablet 1 mg 01-12 04:00: 00 01-12 03:56 :00 No 1mg 1 mg, Oral, ONCE, 1 dose, On Thu01/12/24 at 2300, MICHAEL [facility] ondansetron (ZOFRAN (PF)) injection 8 mg 01-12 04:00: 00 01-12 03:55 :00 No 8mg 8 mg, Slow IV Push, ONCE, 1 dose, On Thu01/12/24 at 2300, MICHAEL [facility] morpHINE (4 mg/mL) injection 6 mg 01-12 04:00: 00 01-12 03:55 :00 No 6mg 6 mg, Slow IV Push, ONCE, 1 dose, On Thu01/12/24 at 2300, STAT [facility] mirtazapine (REMERON) tablet 15 mg 01-10 02:00: 00 Yes 15mg [facility] atorvastati n (LIPITOR) tablet 40 mg 01-10 02:00: 00 Yes 40mg [facility] MULTIVITAMI N ORAL 01-09 15:56: 06 Yes 1{tbl} Take 1 Tab by mouth daily. [facility] omega-3 fatty acids-vitam in E (FISH OIL) 1,000 mg capsule 01-09 15:56: 06 Yes 1g Take 1 g by mouth daily. [facility] loratadine (CLARITIN LIQUI-GEL) 10 mg capsule 01-09 15:56: 06 Yes Take by mouth daily. [facility] metoprolol succinate XL 50 mg 24 hr tablet 01-09 15:56: 06 01-09 00:00 :00 No 50mg Take 1 tablet by mouth in the morning. [facility] KCL (KLOR-CON M20) tablet 40 mEq 01-09 15:45: 00 01-09 17:43 :00 No 40meq 40 mEq, Oral, ONCE, 1 dose, On 01/10/24 at 1045, [facility]-09 14:46: 23 01-09 00:00 :00 No 4mg Take 1 tablet by mouth every 8 (eight) hours as needed for Nausea and Vomiting (N/V). [facility] perflutren protein-A microsphr (OPTISON) injection 3 mL 01-09 14:15: 00 01-09 14:15 :00 No [id number] 3mL 3 mL, IV Push, ONCE, 1 dose, On 01/10/24 at 0915, Routine [facility] tamsulosin (FLOMAX) capsule 0.4 mg 01-09 14:00: 00 Yes .4mg 0.4 mg, Oral, DAILY, First dose on 01/10/24 at 0900, Until Discontinu ed, Routine [facility] metoprolol succinate XL (TOPROL XL) tablet 12.5 mg 01-09 14:00: 00 Yes 12.5mg [facility] DULoxetine (CYMBALTA) capsule 30 mg 01-09 14:00: 00 Yes 30mg 30 mg, Oral, DAILY, First dose on 01/10/24 at 0900, Until Discontinu ed, Routine [facility] digoxin (LANOXIN) tablet 125 mcg 01-09 14:00: 00 Yes 125ug 125 mcg, Oral, DAILY, First dose on 01/10/24 at 0900, Until Discontinu ed [facility] aspirin chewable tablet 81 mg 01-09 14:00: 00 Yes 81mg 81 mg, Oral, DAILY, First dose on 01/10/24 at 0900, Until Discontinu ed, [facility] (NIC[facility] 21 mg/24 hr patch 1 Patch 01-09 13:45: 00 Yes 1{patch } 1 Patch, Topical, Administer over 24 Hours, Q24H, First dose on Thu01/10/24 at 0845, Until Discontinu ed, Routine [facility] gabapentin (NEURONTIN) capsule 100 mg 01-09 13:00: 00 Yes 100mg 100 mg, Oral, TID, First dose on Thu01/10/24 at 0800, Until Discontinu ed, Routine [facility] divalproex (DEPAKOTE) delayed release tablet 1,000 mg 01-09 13:00: 00 Yes 1000mg 1,000 mg, Oral, Q12H, First dose on 01/10/24 at 0800, Until Discontinu ed, Routine [facility] cyclobenzap rine (FLEXERIL) tablet 5 mg 01-09 13:00: 00 Yes 5mg 5 mg, Oral, TID, First dose on Thu01/10/24 at 0800, Until Discontinu ed, Routine [facility] apixaban (ELIQUIS) tablet 5 mg 01-09 13:00: 00 02-27 12:59 :00 No [id number] 5mg 5 mg, Oral, BID, 98 doses, First dose on Thu01/10/24 at 0800, Last dose on 02/27/24 at 2000, Routine, Indication s: DVT/PE [facility] FENTanyl PF (SUBLIMAZE (PF)) injection 25 mcg 01-09 03:08: 20 01-10 03:07 :20 No 25ug 25 mcg, Slow IV Push, Q4HPRN, Starting on 01/09/24 at 2208, Until 01/10/24 at 2207, Routine, Pain (scale 7-10), Pain (scale 4-6) [facility] acetaminoph en (TYLENOL) tablet 650 mg 01-09 03:08: 07 Yes 650mg 650 mg, Oral, Q6HPRN, Starting on 01/09/24 at 2208, Until Discontinu ed, Routine, Pain (scale 1-3) [facility] ondansetron (ZOFRAN (PF)) injection 4 mg 01-09 02:45: 00 01-09 01:53 :00 No 4mg 4 mg, Slow IV Push, ONCE, 1 dose, On 01/09/24 at 2145, MICHAEL [facility] ipratropium -albuteroL (DUONEB) 0.5 mg-3 mg(2.5 mg base)/3 mL nebulizer solution 3 mL 01-09 02:45: 00 01-09 02:01 :00 No 3mL 3 mL, Inhalation , ONCE, 1 dose, On 01/09/24 at 2145, Routine [facility] cefTRIAXone (ROCEPHIN) 1,000 mg in NaCl 0.9% (NS) 100 mL MINI-BAG 01-09 02:30: 00 01-09 03:10 :00 No 1000mg 1,000 mg, IV Piggyback, ONCE, 1 dose, On 01/09/24 at 2130, Administer over 30 Minutes, 100 mL, Reason for Anti-Infec tive: Documented Infection, Documented Infection Site: Respirator y, Duration of Therapy: Once (ED) [facility] famotidine (PEPCID (PF)) injection 20 mg 01-09 01:45: 00 01-09 01:53 :00 No 20mg 20 mg, Slow IV Push, ONCE, 1 dose, On 01/09/24 at 2045, MICHAEL [facility] iopamidol (ISOVUE 370-500 mL) injection 90 mL 01-09 00:45: 00 01-09 00:45 :00 No [id number] 90mL 90 mL, Intravenou s, ONCE, 1 dose, On 01/09/24 at 1945, Routine [facility] atorvastati n 40 mg tablet 01-09 00:00: 00 Yes [id number] 20mg Take 0.5 tablets by mouth at bedtime. [facility] furosemide 40 mg tablet 01-09 00:00: 00 Yes [id number] 40mg Take 1 tablet by mouth every morning and evening. [facility] ipratropium -albuteroL 0.5 mg-3 mg(2.5 mg base)/3 mL nebulizer solution 01-09 00:00: 00 Yes [id number] 3mL Inhale 3 mL every 6 (six) hours as needed for Wheezing or Shortness of Breath. [facility] predniSONE 20 mg tablet 01-09 00:00: 00 01-15 04:59 :00 No [id number] 40mg Take 2 tablets by mouth in the morning for 5 days. [facility] FENTanyl PF (SUBLIMAZE (PF)) injection 50 mcg 01-08 22:45: 00 01-08 23:10 :00 No 50ug 50 mcg, Slow IV Push, ONCE, 1 dose, On 01/09/24 at 1745, STAT [facility] ondansetron (ZOFRAN (PF)) injection 4 mg 01-08 21:30: 00 01-08 21:47 :00 No 4mg 4 mg, Slow IV Push, ONCE, 1 dose, On 01/09/24 at 1630, MICHAEL [facility] aspirin tablet 325 mg 01-08 21:15: 00 01-08 21:47 :00 No 325mg 325 mg, Oral, ONCE, 1 dose, On 01/09/24 at 1615, STAT [facility] spironolact one 25 mg tablet 12-15 00:00: 00 01-15 04:59 :00 No [id number] 25mg Take 1 tablet by mouth in the morning for 30 days. [facility] furosemide (LASIX) tablet 40 mg 12-14 22:00: 00 Yes 40mg 40 mg, Oral, QAM+PM, First dose (after last modificati on) on Thu12/15/23 at 1700, Until Discontinu ed, Routine [facility] spironolact one (ALDACTONE) tablet 25 mg 12-14 14:00: 00 Yes 25mg 25 mg, Oral, DAILY, First dose on Thu12/15/23 at 0900, Until Discontinu ed, Routine [facility] tamsulosin (FLOMAX) capsule 0.4 mg 12-14 14:00: 00 Yes .4mg 0.4 mg, Oral, DAILY, First dose on Thu12/15/23 at 0900, Until Discontinu ed, Routine [facility] metoprolol succinate XL (TOPROL XL) tablet 12.5 mg 12-14 14:00: 00 Yes 12.5mg 12.5 mg, Oral, DAILY, First dose on Thu12/15/23 at 0900, Until Discontinu ed, Routine [facility] lisinopriL (PRINIVIL,Z ESTRIL) tablet 2.5 mg 12-14 14:00: 00 Yes 2.5mg [facility] DULoxetine (CYMBALTA) capsule 30 mg 12-14 14:00: 00 Yes 30mg 30 mg, Oral, DAILY, First dose on Thu12/15/23 at 0900, Until Discontinu ed, Routine [facility] digoxin (LANOXIN) tablet 125 mcg 12-14 14:00: 00 Yes 125ug 125 mcg, Oral, DAILY, First dose on Thu12/15/23 at 0900, Until Discontinu ed [facility] aspirin chewable tablet 81 mg 12-14 14:00: 00 Yes 81mg 81 mg, Oral, DAILY, First dose on Thu12/15/23 at 0900, Until Discontinu ed, Routine [facility] furosemide (LASIX) injection 40 mg 12-14 14:00: 00 12-14 13:49 :00 No 40mg 40 mg, Slow IV Push, ONCE, 1 dose, On Thu12/15/23 at 0900, Routine [facility] MULTIVITAMI N ORAL 12-14 11:08: 41 Yes 1{tbl} Take 1 Tab by mouth daily. [facility] omega-3 fatty acids-vitam in E (FISH OIL) 1,000 mg capsule 12-14 11:08: 41 Yes 1g Take 1 g by mouth daily. [facility] loratadine (CLARITIN LIQUI-GEL) 10 mg capsule 12-14 11:08: 41 Yes Take by mouth daily. [facility] ondansetron 4 mg tablet 12-14 11:08: 41 Yes 4mg Take 1 tablet by mouth every 8 (eight) hours as needed for Nausea and Vomiting (N/V). [facility] methylPREDN ISolone sod succ (SOLU-MEDRO L (PF)) injection 40 mg 12-14 11:00: 00 Yes 40mg 40 mg, Intravenou s, Q6H, First dose (after last modificati on) on Thu12/15/23 at 0600, Until Discontinu ed, Routine [facility] ipratropium -albuteroL (DUONEB) 0.5 mg-3 mg(2.5 mg base)/3 mL nebulizer solution 3 mL 12-14 08:08: 34 Yes 3mL 3 mL, Inhalation , QIDPRN, Starting on Thu12/15/23 at 0308, Until Discontinu ed, Routine, Wheezing, Shortness of Breath, Bronchospa sm, Chest tightness [facility] ipratropium -albuteroL (DUONEB) 0.5 mg-3 mg(2.5 mg base)/3 mL nebulizer solution 3 mL 12-14 03:19: 38 Yes 3mL 3 mL, Inhalation , QIDPRN, Starting on Thu12/14/23 at 2219, Until Discontinu ed, Routine, Wheezing, Shortness of Breath, Bronchospa sm, Chest tightness [facility] Sliding Scale Insulin - Lispro (HumaLOG) 12-14 02:00: 00 Yes [facility] mirtazapine (REMERON) tablet 15 mg 12-14 02:00: 00 Yes 15mg 15 mg, Oral, QHS, First dose on Thu12/14/23 at 2100, Until Discontinu ed, Routine [facility] atorvastati n (LIPITOR) tablet 40 mg 12-14 02:00: 00 Yes 40mg 40 mg, Oral, QHS, First dose on Thu12/14/23 at 2100, Until Discontinu ed, [facility] 100 mg 12-14 01:00: 00 Yes 100mg 100 mg, Oral, BID, First dose on Thu12/14/23 at 2000, Until Discontinu ed, [facility]ab[facility] (NEURONTIN) capsule 100 mg 12-14 01:00: 00 Yes 100mg 100 mg, Oral, TID, First dose on Thu12/14/23 at 2000, Until Discontinu ed, Routine [facility] divalproex (DEPAKOTE) delayed release tablet 1,000 mg 12-14 01:00: 00 Yes 1000mg 1,000 mg, Oral, Q12H, First dose on Thu12/14/23 at 2000, Until Discontinu ed, Routine [facility] cyclobenzap rine (FLEXERIL) tablet 5 mg 12-14 01:00: 00 Yes 5mg 5 mg, Oral, TID, First dose on Thu12/14/23 at 2000, Until Discontinu ed, Routine [facility] apixaban (ELIQUIS) tablet 5 mg 12-14 01:00: 00 02-28 00:59 :00 No [id number] 5mg 5 mg, Oral, BID, 152 doses, First dose on Thu12/14/23 at 1999, Last dose on Thu02/28/24 at 0800, Routine, Indication s: DVT/PE [facility] ondansetron (ZOFRAN (PF)) injection 4 mg 12-14 00:15: 00 12-13 23:26 :00 No 4mg 4 mg, Slow IV Push, ONCE, 1 dose, On Thu12/14/23 at 1915, Routine [facility] morpHINE (4 mg/mL) injection 4 mg 12-14 00:15: 00 12-13 23:27 :00 No 4mg 4 mg, Slow IV Push, ONCE, 1 dose, On Thu12/14/23 at 1915, STAT [facility] metFORMIN 500 mg tablet 12-14 00:00: 00 01-14 04:59 :00 No [id number] 500mg Take 1 tablet by mouth in the morning for 30 days. [facility] empaglifloz in (JARDIANCE) 10 mg tablet 12-14 00:00: 00 01-14 04:59 :00 No [id number] 10mg Take 1 tablet by mouth in the morning for 30 days. [facility] furosemide 40 mg tablet 12-14 00:00: 00 01-09 00:00 :00 No [id number] 60mg Take 1.5 tablets by mouth every morning and evening for 60 days. [facility] glucagon (GLUCAGEN DIAGNOSTIC KIT) injection 1 mg 12-13 23:57: 51 Yes 1mg [facility] dextrose 50 % in water (D50W) injection 25 mL 12-13 23:57: 51 Yes 25mL [facility] ondansetron (ZOFRAN (PF)) injection 4 mg 12-13 23:57: 45 Yes 4mg [facility] morpHINE (2 mg/mL) injection 2 mg 12-13 23:57: 39 12-14 23:56 :39 No 2mg 2 mg, Slow IV Push, Q4HPRN, Starting on Thu12/14/23 at 1857, Until Thu12/15/23 at 1856, Routine, Pain (scale 7-10) [facility] HYDROcodone -acetaminop hen (NORCO 5) 5-325 mg tablet 1 tablet 12-13 23:57: 36 12-15 23:56 :36 No 1{tbl} 1 tablet, Oral, Q6HPRN, Starting on Thu12/14/23 at 1857, Until Thu12/16/23 at 1856, Routine, Pain (scale 4-6) [facility] acetaminoph en (TYLENOL) tablet 650 mg 12-13 23:57: 28 Yes 650mg 650 mg, Oral, Q6HPRN, Starting on Thu12/14/23 at 1857, Until Discontinu ed, Routine, Pain (scale 1-3), Temp > 38 C [facility] dicyclomine (BENTYL) tablet 20 mg 12-13 23:53: 34 Yes 20mg [facility] methylpredn isolone sod succ (SOLU-MEDRO L) injection 125 mg 12-13 23:00: 00 12-14 08:08 :57 No 125mg 125 mg, Intravenou s, Q6H, First dose on Thu12/14/23 at 1800, Until Discontinu ed, Routine [facility] ipratropium -albuteroL (DUONEB) 0.5 mg-3 mg(2.5 mg base)/3 mL nebulizer solution 3 mL 12-13 21:00: 00 Yes 3mL 3 mL, Inhalation , QID, First dose on Thu12/14/23 at 1600, Until Discontinu ed, Routine [facility] ondansetron (ZOFRAN (PF)) injection 4 mg 12-13 20:45: 00 12-13 19:40 :00 No 4mg 4 mg, Slow IV Push, ONCE, 1 dose, On Thu12/14/23 at 1545, Routine [facility] morpHINE (4 mg/mL) injection 4 mg 12-13 20:45: 00 12-13 19:41 :00 No 4mg 4 mg, Slow IV Push, ONCE, 1 dose, On Thu12/14/23 at 1545, STAT [facility] furosemide (LASIX) tablet 40 mg 12-03 14:00: 00 Yes 40mg 40 mg, Oral, DAILY, First dose (after last modificati on) on Thu12/04/23 at 0900, Until Discontinu ed, Routine [facility] mirtazapine (REMERON) tablet 15 mg 12-03 02:00: 00 Yes 15mg [facility] metoprolol succinate XL 25 mg 24 hr tablet 12-03 00:00: 00 Yes [id number] 12.5mg Take 0.5 tablets by mouth in the morning. [facility] Potassium Bicarb-Citr ic Acid (EFFER-K) effervescen t tablet 40 mEq 12-02 21:06: 00 12-02 23:09 :00 No 40meq 40 mEq, Oral, ONCE, 1 dose, On Arpita 12/03/23 at 1615, Routine [facility] metoprolol succinate XL (TOPROL XL) tablet 12.5 mg 12-02 16:00: 00 Yes 12.5mg 12.5 mg, Oral, DAILY, First dose on Arpita 12/03/23 at 1100, Until Discontinu ed, Routine [facility] sennosides (SENOKOT) tablet 8.6 mg 12-02 15:00: 00 Yes 8.6mg 8.6 mg, Oral, DAILY, First dose on Arpita 12/03/23 at 1000, Until Discontinu ed, [facility] ([facility] 650 mg 12-02 14:47: 07 Yes 650mg 650 mg, Oral, Q6HPRN, Starting on Thu12/03/23 at 0947, Until Discontinu ed, Routine, Pain (scale 1-3) [facility] ipratropium -albuteroL (DUONEB) 0.5 mg-3 mg(2.5 mg base)/3 mL nebulizer solution 3 mL 12-02 14:45: 00 Yes 3mL 3 mL, Inhalation , QID, First dose (after last modificati on) on Arpita 12/03/23 at 0945, Until Discontinu ed, Routine [facility] tamsulosin (FLOMAX) capsule 0.4 mg 12-02 14:00: 00 Yes .4mg 0.4 mg, Oral, DAILY, First dose on Thu12/03/23 at 0900, Until Discontinu ed, Routine [facility] DULoxetine (CYMBALTA) capsule 30 mg 12-02 14:00: 00 Yes 30mg 30 mg, Oral, DAILY, First dose on Thu12/03/23 at 0900, Until Discontinu ed, Routine [facility] digoxin (LANOXIN) tablet 125 mcg 12-02 14:00: 00 Yes 125ug 125 mcg, Oral, DAILY, First dose on Thu12/03/23 at 0900, Until [facility]continu ed [facility] 81 mg 12-02 14:00: 00 Yes 81mg 81 mg, Oral, DAILY, First dose on Thu12/03/23 at 0900, Until Discontinu ed, [facility] f[facility] (LASIX) tablet 40 mg 12-02 14:00: 00 12-02 17:37 :33 No 40mg 40 mg, Oral, QAM+PM, First dose on Thu12/03/23 at 0900, Until Discontinu ed, Routine [facility] lacosamide (VIMPAT) tablet 100 mg 12-02 13:30: 00 Yes 100mg 100 mg, Oral, BID, First dose on Thu12/03/23 at 0830, Until Discontinu ed, Routine [facility] magnesium oxide (MAG-OX 400) tablet 400 mg 12-02 13:26: 00 12-02 14:24 :00 No 400mg 400 mg, Oral, ONCE, 1 dose, On Thu12/03/23 at 0830, [facility] Potassium Bicarb-Citr ic Acid (EFFER-K) effervescen t tablet 40 mEq 12-02 13:19: 00 12-02 14:24 :00 No 40meq 40 mEq, Oral, ONCE, 1 dose, On Thu12/03/23 at 0830, Routine [facility] Sliding Scale Insulin - Lispro (HumaLOG) 12-02 13:00: 00 Yes Subcutaneo us, TID MEALS+HS, First dose on Thu12/03/23 at 0800, Until Discontinu ed, [facility]ab[facility] (NEURONTIN) capsule 100 mg 12-02 13:00: 00 Yes 100mg 100 mg, Oral, TID, First dose on Thu12/03/23 at 0800, Until Discontinu ed, Routine [facility] divalproex ER (DEPAKOTE ER) 24 hr tablet 1,000 mg 12-02 13:00: 00 Yes 1000mg 1,000 mg, Oral, Q12H, First dose on Thu12/03/23 at 0800, Until Discontinu ed, Routine [facility] cyclobenzap rine (FLEXERIL) tablet 5 mg 12-02 13:00: 00 Yes 5mg 5 mg, Oral, TID, First dose on Thu12/03/23 at 0800, Until Discontinu ed, Routine [facility] KCL (KLOR-CON M20) tablet 40 mEq 12-02 12:15: 00 12-02 14:24 :00 No 40meq 40 mEq, Oral, ONCE, 1 dose, On Thu12/03/23 at 0715, Routine [facility] KCL (KLOR-CON M20) tablet 20 mEq 12-02 04:00: 00 12-02 04:07 :00 No 20meq 20 mEq, Oral, ONCE, 1 dose, On Thu12/02/23 at 2300, Routine [facility] furosemide (LASIX) injection 40 mg 12-02 03:15: 00 12-02 02:36 :00 No 40mg 40 mg, Slow IV Push, ONCE, 1 dose, On Thu12/02/23 at 2215, Routine [facility] glucagon (GLUCAGEN DIAGNOSTIC KIT) injection 1 mg 12-02 02:54: 39 Yes 1mg 1 mg, Intramuscu lar, PRN, Starting on Thu12/02/23 at 2154, Until Discontinu ed, MICHAEL, Blood Glucose < or = 70 mg/dL and patient is NPO, unable to swallow or has mental changes. [facility] dextrose 50 % in water (D50W) injection 25 mL 12-02 02:54: 38 Yes 25mL 25 mL, Slow IV Push, PRN, Starting on Thu12/02/23 at 2154, Until Discontinu ed, MICHAEL, Blood Glucose < or = 70 mg/dL and patient is NPO, unable to swallow or has mental status changes. [facility] atorvastati n (LIPITOR) tablet 40 mg 12-02 02:00: 00 Yes 40mg 40 mg, Oral, QHS, First dose on Thu12/02/23 at 2100, Until Discontinu ed, Routine [facility] apixaban (ELIQUIS) tablet 5 mg 12-02 01:45: 00 02-28 00:59 :00 No [id number] 5mg 5 mg, Oral, BID, 176 doses, First dose on Thu12/02/23 at 2045, Last dose on Thu02/28/24 at 0800, Routine, Indication s: DVT/PE [facility] albuterol (PROVENTIL) 2.5 mg /3 mL (0.083 %) nebulizer solution 2.5 mg 12-02 01:40: 57 Yes 2.5mg [facility] ondansetron (ZOFRAN (PF)) injection 4 mg 12-02 01:02: 39 Yes 4mg 4 mg, Slow IV Push, Q6HPRN, Nausea and Vomiting (N/V), Starting on Thu12/02/23 at 2001, Doses of ondansetro n 16 mg and above need to be administer ed via IV piggyback. For Dose >=24mg ECG monitoring is advisable. [facility] lisinopriL 2.5 mg tablet 12-02 00:00: 00 Yes [id number] 2.5mg Take 1 tablet by mouth in the morning. [facility] acetaminoph en (OFIRMEV) IV piggyback 1,000 mg 12-01 22:15: 00 12-01 21:51 :00 No 1000mg 1,000 mg, IV Piggyback, at 400 mL/hr Administer over 15 Minutes, ONCE, 1 dose, On Thu12/02/23 at 1715, Routine, Is the patient strict NPO and unable to tolerate oral medication s? Yes [facility] iopamidol (ISOVUE 370-500 mL) injection 85 mL 12-01 19:15: 00 12-01 19:33 :00 No [id number] 85mL 85 mL, Intravenou s, ONCE, 1 dose, On Thu12/02/23 at 1415, Routine [facility] FENTanyl PF (SUBLIMAZE (PF)) injection 25 mcg 12-01 18:30: 00 12-01 19:38 :00 No 25ug 25 mcg, Slow IV Push, ONCE, 1 dose, On Thu12/02/23 at 1330, STAT [facility] NaCl 0.9% (NS) bolus infusion 1,000 mL 12-01 18:15: 12-01 21:00 :00 No 1000mL at 999 mL/hr, 1,000 mL, IV Infusion, ONCE, 1 dose, On Thu12/02/23 at 1315, STAT [facility] DULoxetine 30 mg capsule 11-28 00:00: 00 Yes [id number] 30mg Take 1 capsule by mouth in the morning. [facility] digoxin 125 mcg tablet 11-28 00:00: 00 Yes [id number] .125mg Take 1 tablet by mouth in the morning. [facility] tamsulosin 0.4 mg 24 hr capsule 11-28 00:00: 00 02-27 04:59 :00 No [id number] .4mg Take 1 capsule by mouth in the morning for 90 days. [facility] metoprolol succinate XL 50 mg 24 hr tablet 11-28 00:00: 00 12-02 00:00 :00 No [id number] 50mg Take 1 tablet by mouth in the morning. [facility] lisinopriL 5 mg tablet 11-28 00:00: 00 12-02 00:00 :00 No [id number] 5mg Take 1 tablet by mouth in the morning. [facility] spironolact one 25 mg tablet 11-28 00:00: 00 12-02 00:00 :00 No [id number] 50mg Take 2 tablets by mouth in the morning. [facility] metoprolol succinate XL (TOPROL XL) tablet 50 mg 11-27 14:00: 00 Yes 50mg 50 mg, Oral, DAILY, First dose (after last modificati on) on Thu11/28/23 at 0900, Until Discontinu ed, Routine [facility] KCL (KLOR-CON M20) tablet 40 mEq 11-27 12:30: 00 11-27 13:39 :00 No 40meq 40 mEq, Oral, ONCE, 1 dose, On Thu11/28/23 at 0730, Routine [facility] potassium chloride in water (KCL) 20 mEq/100 mL RTU IVPB 20 mEq 11-27 11:00: 00 11-27 13:40 :00 No 20meq 20 mEq, IV Piggyback, ONCE, 1 dose, On Thu11/28/23 at 0600, 100 mL [facility] clonazePAM (KLONOPIN) tablet 0.5 mg 11-27 02:45: 00 Yes .5mg 0.5 mg, Oral, QHS, First dose on Thu11/27/23 at 2145, Until Discontinu ed, Routine [facility] lacosamide (VIMPAT) tablet 100 mg 11-27 01:00: 00 Yes 100mg 100 mg, Oral, BID, First dose (after last modificati on) on Thu11/27/23 at 2000, Until Discontinu ed, Routine [facility] gabapentin 100 mg capsule 11-27 00:00: 00 Yes [id number] 100mg Take 1 capsule by mouth in the morning and 1 capsule at noon and 1 capsule in the evening. [facility] divalproex ER 500 mg 24 hr tablet 11-27 00:00: 00 04-03 00:00 :00 No [id number] 1000mg Take 2 tablets by mouth every 12 (twelve) hours. [facility] apixaban 5 mg tablet 11-27 00:00: 00 03-01 04:59 :00 No [id number] Take 2 tablets by mouth 2 (two) times daily for 3 days, THEN 1 tablet 2 (two) times daily for 90 days. Indication s: history of deep vein thrombosis [facility] furosemide 40 mg tablet 11-27 00:00: 00 12-14 00:00 :00 No [id number] 40mg Take 1 tablet by mouth every morning and evening. [facility] lacosamide (VIMPAT) 200 mg in NaCl 0.9% (NS) 50 mL piggyback 11-26 18:45: 00 11-26 23:04 :00 No 200mg 200 mg, IV Piggyback, ONCE, 1 dose, On Thu11/27/23 at 1345, Administer over 30 Minutes, 50 mL [facility] furosemide (LASIX) tablet 40 mg 11-26 14:00: 00 Yes 40mg 40 mg, Oral, QAM+PM, First dose on Thu11/27/23 at 0900, Until Discontinu ed, Routine [facility] divalproex ER (DEPAKOTE ER) 24 hr tablet 1,000 mg 11-26 13:00: 00 Yes 1000mg 1,000 mg, Oral, Q12H, First dose (after last modificati on) on Thu11/27/23 at 0800, Until Discontinu ed, Routine [facility] furosemide (LASIX) injection 40 mg 11-26 01:00: 00 11-26 01:57 :00 No 40mg 40 mg, Slow IV Push, BID, 1 dose, First dose (after last modificati on) on Thu11/26/23 at 1999, Routine [facility] divalproex ER (DEPAKOTE ER) 24 hr tablet 1,250 mg 11-26 01:00: 00 11-26 02:38 :40 No 1250mg 1,250 mg, Oral, Q12H, First dose (after last modificati on) on Thu11/26/23 at 1999, Until Discontinu ed, Routine [facility] cyanocobala min (DODEX) injection 1,000 mcg 11-25 18:30: 00 11-25 19:31 :00 No 1000ug 1,000 mcg, Intramuscu lar, ONCE, 1 dose, On Thu11/26/23 at 1330, Routine [facility] thiamine (VITAMIN B1) 100 mg in NaCl 0.9% (NS) piggyback 11-25 18:00: 00 11-30 13:59 :00 No 100mg IV Piggyback, DAILY, 5 doses, First dose on Thu11/26/23 at 1300, Last dose on Thu11/30/23 at 0900, 50 mL [facility] digoxin (LANOXIN) tablet 125 mcg 11-25 16:30: 00 Yes 125ug 125 mcg, Oral, DAILY, First dose on Thu11/26/23 at 1130, Until Discontinu ed, Routine [facility] metoprolol succinate XL (TOPROL XL) tablet 25 mg 11-25 16:15: 00 11-27 13:09 :49 No 25mg 25 mg, Oral, DAILY, First dose on Thu11/26/23 at 1115, Until Discontinu ed, Routine [facility] apixaban (ELIQUIS) tablet 10 mg 11-25 01:00: 00 11-30 00:59 :00 No 10mg [Order 1 Start] Name: apixaban (ELIQUIS) tablet 10 mg Signed Summary: 10 mg, Oral, BID, 10 doses, First dose (after last modificati on) on Thu11/25/23 at 2000, Last dose on Thu11/30/23 at 0800, Routine, Indication s: DVT/PE [Order 1 End] [Order 2 Start] Name: apixaban (ELIQUIS) tablet 5 mg Signed Summary: 5 mg, Oral, BID, First dose (after last modificati on) on Thu11/30/23 at 2000, Until Discontinu ed, Routine, Indication s: DVT/PE [Order 2 End] [facility] furosemide (LASIX) injection 40 mg 11-25 01:00: 00 11-25 16:08 :20 No 40mg 40 mg, Slow IV Push, BID, First dose (after last modificati on) on Thu11/25/23 at 2000, Until Discontinu ed, Routine [facility] spironolact one (ALDACTONE) tablet 12.5 mg 2023-0 11-24 21:00: 00 Yes 12.5mg 12.5 mg, Oral, DAILY, First dose on Thu11/25/23 at 1600, Until Discontinu ed, Routine [facility] lisinopriL (PRINIVIL,Z ESTRIL) tablet 5 mg 2023-0 11-24 21:00: 00 Yes 5mg 5 mg, Oral, DAILY, First dose on Thu11/25/23 at 1600, Until Discontinu ed, Routine [facility] apixaban (ELIQUIS) tablet 5 mg 2023-0 11-24 16:30: 00 11-24 16:18 :00 No 5mg 5 mg, Oral, ONCE, 1 dose, On Thu11/25/23 at 1130, Routine, Indication s: DVT/PE [facility] apixaban (ELIQUIS) tablet 5 mg 11-24 14:00: 00 11-24 15:40 :42 No 5mg 5 mg, Oral, BID, 11 doses, First dose (after last modificati on) on Thu11/25/23 at 0900, Last dose on Thu11/30/23 at 0800, Routine, Indication s: DVT/PE [facility] divalproex ER (DEPAKOTE ER) 24 hr tablet 1,000 mg 2023-11-24 13:00: 00 11-25 17:41 :19 No 1000mg 1,000 mg, Oral, Q12H, First dose (after last modificati on) on Thu11/25/23 at 0800, Until Discontinu ed, Routine [facility] ondansetron (ZOFRAN (PF)) injection 4 mg 2023-0 11-24 03:45: 00 11-24 02:49 :00 No 4mg 4 mg, Slow IV Push, ONCE, On Thu11/24/23 at 2245, For 1 dose, Doses of ondansetro n 16 mg and above need to be administer ed via IV piggyback. For Dose >=24mg ECG monitoring is advisable. [facility] divalproex (DEPAKOTE) delayed release tablet 500 mg 11-24 03:45: 00 11-24 04:49 :00 No 500mg 500 mg, Oral, ONCE, 1 dose, On Thu11/24/23 at 2245, Routine [facility] nitroglycer in (NITROSTAT) sublingual tablet 0.4 mg 11-24 02:36: 01 Yes .4mg 0.4 mg, Sublingual , Q5MIN PRN, Starting on Thu11/24/23 at 2136, Until Discontinu ed, Routine, Chest pain [facility] nystatin (NILSTAT) 100,000 unit/mL suspension 500,000 Units 11-24 01:15: 00 11-26 20:18 :35 No 5mL 500,000 Units (5 mL), Oral, QID, First dose on Thu11/24/23 at 2015, Until Discontinu ed, Routine [facility] acetaminoph en-codeine (TYLENOL #3) 300-30 mg tablet 1 tablet 11-24 01:07: 37 Yes 1{tbl} 1 tablet, Oral, Q6HPRN, Starting on Thu11/24/23 at 2006, Until Discontinu ed, Routine, Pain (scale 4-6) [facility] iopamidol (ISOVUE 370-500 mL) injection 100 mL 11-23 23:15: 00 11-23 22:15 :00 No [id number] 100mL 100 mL, Intravenou s, ONCE, 1 dose, On Thu11/24/23 at 1815, Routine [facility] milrinone in 5 % dextrose (PRIMACOR) 20 mg/100 mL (200 mcg/mL) infusion RTU 11-23 20:45: 00 11-24 18:50 :54 No .25ug/k g/min 0.25 mcg/kg/min ?94.5 kg (7.0875 mL/hr, rounded to 7.09 mL/hr), IV Infusion, CONTINUOUS , Starting on Thu11/24/23 at 1545, 1. Dose to be adjusted by physician or provider. 2. Notify MD if MAP < 65 mmHG. [facility] polyethylen e glycol 3350 powder 17 g 11-23 19:15: 00 Yes 17g 17 g, Oral, DAILY, First dose on Thu11/24/23 at 1415, Until Discontinu ed, Routine [facility] ipratropium -albuteroL (DUONEB) 0.5 mg-3 mg(2.5 mg base)/3 mL nebulizer solution 3 mL 11-23 19:00: 00 Yes 3mL 3 mL, Inhalation , TID, First dose (after last modificati on) on Thu11/24/23 at 1400, Until Discontinu ed, Routine [facility] ondansetron (ZOFRAN (PF)) injection 4 mg 11-23 17:16: 00 11-23 17:24 :00 No 4mg 4 mg, Slow IV Push, ONCE, On Thu11/24/23 at 1230, For 1 dose, Doses of ondansetro n 16 mg and above need to be administer ed via IV piggyback. For Dose >=24mg ECG monitoring is advisable. [facility] apixaban (ELIQUIS) tablet 10 mg 11-23 15:45: 00 11-24 13:38 :20 No 10mg 10 mg, Oral, BID, 14 doses, First dose on Thu11/24/23 at 1045, Last dose on Thu11/30/23 at 2000, Routine, Indication s: DVT/PE [facility] milrinone in 5 % dextrose (PRIMACOR) 20 mg/100 mL (200 mcg/mL) infusion RTU 11-23 15:45: 00 11-23 20:33 :33 No .125ug/ kg/min 0.125 mcg/kg/min ?94.5 kg (3.5438 mL/hr, rounded to 3.54 mL/hr), IV Infusion, CONTINUOUS , Starting on Thu11/24/23 at 1045, 1. Dose to be adjusted by physician or provider. 2. Notify MD if MAP < 65 mmHG. [facility] HYDROcodone -acetaminop hen (NORCO 5) 5-325 mg tablet 1 tablet 11-23 14:28: 00 11-23 15:37 :00 No 1{tbl} 1 tablet, Oral, ONCE, 1 dose, On Thu11/24/23 at 0930, Routine [facility] hydrALAZINE (APRESOLINE ) tablet 10 mg 11-23 12:30: 00 11-25 13:28 :25 No 10mg 10 mg, Oral, Q8H, First dose on Thu11/24/23 at 0730, Until Discontinu ed, Routine [facility] iohexoL (OMNIPAQUE 180-20 mL) injection 11-22 20:31: 56 11-22 20:32 :10 No ONCE INTRA PROCEDURE, Starting on Thu11/23/23 at 1531, Until Thu11/23/23 at 1532, Routine, CV Intraproce dure [facility] nitroglycer in (TRIDIL) 2 mg in 10 mL D5W for Cardiac Cath 11-22 19:32: 38 11-22 20:32 :10 No ONCE INTRA PROCEDURE, Starting on Thu11/23/23 at 1432, Until Thu11/23/23 at 1532, Routine, CV Intraproce dure [facility] heparin 1,000 unit/mL injection 11-22 19:31: 28 11-22 20:32 :10 No ONCE INTRA PROCEDURE, Starting on Thu11/23/23 at 1431, Until Thu11/23/23 at 1532, Routine, CV Intraproce dure [facility] midazolam (VERSED) injection 11-22 19:24: 54 11-22 20:32 :10 No ONCE INTRA PROCEDURE, Starting on Thu11/23/23 at 1424, Until Thu11/23/23 at 1532, Routine, CV Intraproce dure [facility] FENTanyl PF (SUBLIMAZE (PF)) injection 11-22 19:21: 00 11-22 20:32 :10 No ONCE INTRA PROCEDURE, Starting on Thu11/23/23 at 1421, Until Thu11/23/23 at 1532, Routine, CV Intraproce dure [facility] lidocaine 1% (PF) (XYLOCAINE) injection 11-22 19:20: 00 11-22 20:32 :10 No ONCE INTRA PROCEDURE, Starting on Thu11/23/23 at 1420, Until Thu11/23/23 at 1532, Routine, CV Intraproce dure [facility] furosemide 20 mg tablet 11-22 15:47: 27 11-27 00:00 :00 No 20mg Take 1 tablet by mouth every morning and evening. [facility] milrinone in 5 % dextrose (PRIMACOR) 20 mg/100 mL (200 mcg/mL) infusion RTU 11-22 15:45: 00 11-23 15:32 :54 No .25ug/k g/min 0.25 mcg/kg/min ?94.5 kg (7.0875 mL/hr, rounded to 7.09 mL/hr), IV Infusion, CONTINUOUS , Starting on Thu11/23/23 at 1045, 1. Dose to be adjusted by physician or provider. 2. Notify MD if MAP < 65 mmHG. [facility] DULoxetine (CYMBALTA) capsule 30 mg 11-22 14:00: 00 11-27 00:00 :00 No 30mg 30 mg, Oral, DAILY, First dose on Thu11/23/23 at 0900, Until Discontinu ed, Routine [facility] magnesium oxide (MAG-OX 400) tablet 400 mg 11-22 13:45: 00 11-22 14:00 :00 No 400mg 400 mg, Oral, ONCE, 1 dose, On Thu11/23/23 at 0845, Routine [facility] hydrOXYzine (ATARAX) tablet 50 mg 11-22 13:42: 15 Yes 50mg 50 mg, Oral, Q8HPRN, Starting on Thu11/23/23 at 0842, Until Discontinu ed, Routine, Anxiety [facility] KCL (KLOR-CON M20) tablet 40 mEq 11-22 10:45: 00 11-22 10:20 :00 No 40meq 40 mEq, Oral, ONCE, 1 dose, On Thu11/23/23 at 0545, Routine [facility] mirtazapine (REMERON) tablet 15 mg 11-22 02:00: 00 Yes 15mg 15 mg, Oral, QHS, First dose on Thu11/22/23 at 2100, Until Discontinu ed, Routine [facility] atorvastati n (LIPITOR) tablet 40 mg 11-22 02:00: 00 11-25 16:05 :43 No 40mg 40 mg, Oral, QHS, First dose on Thu11/22/23 at 2100, Until Discontinu ed, Routine [facility] divalproex (DEPAKOTE) delayed release tablet 500 mg 11-22 01:00: 00 11-23 12:27 :34 No 500mg 500 mg, Oral, BID, First dose on Thu11/22/23 at 2000, Until Discontinu ed, Routine [facility] milrinone in 5 % dextrose (PRIMACOR) 20 mg/100 mL (200 mcg/mL) infusion RTU 11-21 19:30: 00 11-22 15:38 :58 No .125ug/ kg/min 0.125 mcg/kg/min ?94.5 kg (3.5438 mL/hr, rounded to 3.54 mL/hr), IV Infusion, CONTINUOUS , Starting on Thu11/22/23 at 1430, 1. Dose to be adjusted by physician or provider. 2. Notify MD if MAP < 65 mmHG. [facility] diazePAM (VALIUM) injection 2 mg 11-21 19:28: 00 11-21 20:15 :00 No 2mg 2 mg, Intravenou s, ONCE, 1 dose, On 11/22/23 at 1430, Routine [facility] gabapentin (NEURONTIN) capsule 100 mg 11-21 19:00: 00 Yes 100mg 100 mg, Oral, TID, First dose on 11/22/23 at 1400, Until Discontinu ed, Routine [facility] furosemide (LASIX) injection 40 mg 11-21 19:00: 00 11-24 18:54 :28 No 40mg 40 mg, Slow IV Push, TID, First dose on 11/22/23 at 1400, Until Discontinu ed, Routine [facility] ondansetron (ZOFRAN-ODT ) disintegrat ing tablet 4 mg 11-21 18:45: 00 11-21 18:25 :00 No 4mg 4 mg, Oral, ONCE, 1 dose, On 11/22/23 at 1345, [facility]sphere [facility] (DEFINITY) injection 2 mL 11-21 16:45: 00 11-21 16:45 :00 No [id number] 2mL 2 mL, IV Push, ONCE, 1 dose, On Thu11/22/23 at 1145, [facility] f[facility] 40 mg 11-21 14:15: 00 11-21 18:23 :20 No 40mg 40 mg, Slow IV Push, BID, 2 doses, First dose on 11/22/23 at 0915, Last dose on Thu11/22/23 at 2000, Routine [facility] losartan (COZAAR) tablet 25 mg 11-21 14:15: 00 11-21 20:14 :04 No 25mg 25 mg, Oral, DAILY, First dose on 11/22/23 at 0915, Until Discontinu ed, Routine [facility] tamsulosin (FLOMAX) capsule 0.4 mg 11-21 14:00: 00 Yes .4mg 0.4 mg, Oral, DAILY, First dose on 11/22/23 at 0900, Until Discontinu ed, Routine [facility] pantoprazol e (PROTONIX) EC tablet 40 mg 11-21 14:00: 00 Yes 40mg 40 mg, Oral, DAILY, First dose on 11/22/23 at 0900, Until Discontinu ed, Routine [facility] aspirin chewable tablet 81 mg 11-21 14:00: 00 Yes 81mg 81 mg, Oral, DAILY, First dose on Thu11/22/23 at 0900, Until Discontinu ed, Routine [facility] predniSONE (DELTASONE) tablet 40 mg 11-21 14:00: 00 11-25 13:14 :00 No 40mg 40 mg, Oral, DAILY, 5 doses, First dose on Thu11/22/23 at 0900, Last dose on Thu11/26/23 at 0900, Routine [facility] iopamidol (ISOVUE 370-500 mL) injection 80 mL 11-21 14:00: 00 11-21 14:00 :00 No [id number] 80mL 80 mL, Intravenou s, ONCE, 1 dose, On Thu11/22/23 at 0900, Routine [facility] Sliding Scale Insulin - Lispro (HumaLOG) 11-21 13:00: 00 Yes Subcutaneo us, TID MEALS+HS, First dose on 11/22/23 at 0800, Until Discontinu ed, Routine [facility] divalproex ER (DEPAKOTE ER) 24 hr tablet 500 mg 11-21 13:00: 00 11-24 02:43 :24 No 500mg 500 mg, Oral, Q12H, First dose on 11/22/23 at 0800, Until Discontinu ed, Routine [facility] ipratropium -albuteroL (DUONEB) 0.5 mg-3 mg(2.5 mg base)/3 mL nebulizer solution 3 mL 11-21 09:00: 00 11-23 15:56 :58 No 3mL 3 mL, Inhalation , Q4H, First dose on 11/22/23 at 0400, Until Discontinu ed, Routine [facility] furosemide (LASIX) injection 40 mg 11-21 07:45: 00 11-21 07:15 :00 No 40mg 40 mg, Slow IV Push, ONCE, 1 dose, On [place] 11/22/23 at 0245, Routine [facility] sodium chloride 7% (HYPER-IRVIN) nebulizer solution 4 mL 11-21 07:00: 00 11-23 14:32 :09 No 4mL 4 mL, Inhalation , DAILY, First dose on [place] 11/22/23 at 0200, Until Discontinu ed, Routine [facility] morpHINE (2 mg/mL) injection 2 mg 11-21 06:52: 11 Yes 2mg 2 mg, Slow IV Push, Q4HPRN, Starting on [place] 11/22/23 at 0152, Until Discontinu ed, Routine, Pain (scale 7-10) [facility] heparin 25,000 Units/250 mL (Premixed [...] ant therapy. Range, Dosing and Testing: FOR [facility], [facility], AND [facility] ONLY - aPTT < [...] once therapeuti c levels are reached. FOR [facility] ONLY - aPTT < 40: Bolus [...] INITIAL BOLUS OR INITIAL INFUSION RATE. [facility] heparin (1,000 unit/mL, 10 mL vial) for Rebolusing 11-21 06:43: 39 11-23 15:32 :54 No 3000U FOR REBOLUSING , Starting on Thu11/22/23 at 0143, Until Thu11/24/23 at 1032, Routine, Dosing based on aPPT testing parameters (refer to continuous heparin drip order). [facility] glucagon (GLUCAGEN DIAGNOSTIC KIT) injection 1 mg 11-21 06:36: 57 Yes 1mg [facility] dextrose 50 % in water (D50W) injection 25 mL 11-21 06:36: 57 Yes 25mL [facility] acetaminoph en (TYLENOL) tablet 650 mg 11-21 06:36: 44 Yes 650mg 650 mg, Oral, Q6HPRN, Starting on 11/22/23 at 0136, Until Discontinu ed, Routine, Pain (scale 1-3) [facility] ondansetron (ZOFRAN (PF)) injection 4 mg 11-21 04:45: 00 11-21 03:46 :00 No 4mg 4 mg, Slow IV Push, ONCE, 1 dose, On 11/21/23 at 2345, MICHAEL [facility] acetaminoph en (TYLENOL) tablet 975 mg 11-21 04:45: 00 11-21 03:44 :00 No 975mg 975 mg, Oral, ONCE, 1 dose, On 11/21/23 at 2345, MICHAEL [facility] HEPARIN SODIUM (PORCINE) 1,000 UNIT/ML BOLUS ACS ORDER SET 11-21 04:15: 00 11-21 04:33 :00 No 4000U 4,000 Units, IV Push, ONCE, 1 dose, On 11/21/23 at 2315, MICHAEL [facility] morpHINE (4 mg/mL) injection 4 mg 11-21 04:15: 00 11-21 04:27 :00 No 4mg 4 mg, Slow IV Push, ONCE, 1 dose, On 11/21/23 at 2315, STAT [facility] methylpredn isolone sod succ (SOLU-MEDRO L) injection 125 mg 11-21 04:15: 00 11-21 03:24 :00 No 125mg 125 mg, Slow IV Push, ONCE NOW, 1 dose, On 11/21/23 at 2315, MICHAEL [facility] heparin 25,000 Units/250 mL (Premixed Bag) in [...] ant therapy. Range, Dosing and Testing: FOR [facility], [facility], AND [facility] ONLY - aPTT < [...] INITIAL BOLUS OR INITIAL INFUSION RATE. [facility] ipratropium -albuteroL (DUONEB) 0.5 mg-3 mg(2.5 mg base)/3 mL nebulizer solution 3 mL 11-21 04:00: 00 11-21 02:51 :00 No 3mL 3 mL, Inhalation , ONCE, 1 dose, On 11/21/23 at 2300, MICHAEL [facility] ipratropium -albuteroL (DUONEB) 0.5 mg-3 mg(2.5 mg base)/3 mL nebulizer solution 3 mL 11-21 03:30: 00 11-21 02:37 :00 No 3mL 3 mL, Inhalation , ONCE, 1 dose, On 11/21/23 at 2230, MICHAEL [facility] NaCl 0.9% (NS) bolus infusion 500 mL 11-21 03:15: 00 11-21 04:14 :00 No 500mL at 999 mL/hr, 500 mL, IV Infusion, ONCE, 1 dose, On 11/21/23 at 2215, STAT [facility] mirtazapine 15 mg tablet -14 00:00: 00 Yes 15mg Take 1 tablet by mouth at bedtime. [facility] spironolact one 25 mg tablet -13 00:00: 00 11-27 00:00 :00 No 25mg Take 1 tablet by mouth in the morning and 1 tablet in the evening. [facility] metFORMIN 500 mg tablet -12 00:00: 00 12-14 00:00 :00 No 500mg Take 1 tablet by mouth in the morning. [facility] D[facility] (CYMBALTA[facility] 60 MG capsule 09-09 00:00: 00 10-08 23:59 :00 No 60mg QD Take 1 capsule (60 mg total) by mouth daily for 30 days. [facility] varenicline (CHANTIX) 1 mg tablet 09-08 10:51: 03 Yes 1mg Q.5D Take 1 tablet (1 mg total) by mouth 2 (two) times daily Give with meals and with a full glass of water.. [facility] atorvastati n (LIPITOR) 20 MG tablet 09-08 10:51: 03 Yes 20mg QD Take 1 tablet (20 mg total) by mouth daily. [facility] lidocaine (LIDODERM) 4 % patch 09-08 00:00: 00 10-07 23:59 :00 No 3{patch } Q24H Place 3 patches onto the skin daily for 30 days. [facility] cyanocobala min (VITAMIN B-12) 1000 MCG tablet 09-08 00:00: 00 10-07 23:59 :00 No 1000ug QD Take 1 tablet (1,000 mcg total) by mouth daily for 30 days. [facility] metoprolol succinate (TOPROL-XL) 25 MG 24 hr tablet 09-07 16:47: 05 09-07 00:00 :00 No 25mg QD Take 1 tablet (25 mg total) by mouth daily. [facility] albuterol HFA (VENTOLIN HFA) 90 mcg/actuati on inhaler 09-07 16:47: 05 09-07 00:00 :00 No 1{puff} Inhale 1 puff by mouth via inhaler every 6 (six) hours as needed for Wheezing. [facility] fluticasone -umeclidin- vilanter (Trelegy Ellipta) 200-62.5-25 mcg DsDv 09-07 16:47: 05 09-07 00:00 :00 No QD Inhale by mouth via inhaler daily. [facility] tamsulosin (FLOMAX) 0.4 mg Cap 24 hr capsule 09-07 00:00: 00 10-06 23:59 :00 No .4mg QD Take 1 capsule (0.4 mg total) by mouth daily for 30 days. [facility] senna-docus ate (SENOKOT S) 8.6-50 mg per tablet 09-07 00:00: 00 10-06 23:59 :00 No 2{tbl} Q.5D Take 2 tablets by mouth 2 (two) times daily for 30 days. [facility] polyethylen e glycol (GLYCOLAX) 17 gram packet 09-07 00:00: 00 10-06 23:59 :00 No 17g Q.5D Take 17 g by mouth 2 (two) times daily for 30 days. [facility] gabapentin (NEURONTIN) 400 MG capsule 09-07 00:00: 00 10-06 23:59 :00 No 400mg Q.[id number] 3D Take 1 capsule (400 mg total) by mouth 3 (three) times daily for 30 days. [facility] furosemide (LASIX) 20 MG tablet 09-07 00:00: 00 10-06 23:59 :00 No 20mg QD Take 1 tablet (20 mg total) by mouth daily for 30 days. [facility] fluticasone -umeclidin- vilanter (Trelegy Ellipta) 200-62.5-25 mcg DsDv 09-07 00:00: 00 10-06 23:59 :00 No 1{inhal ation} QD Inhale 1 Inhalation by mouth via inhaler daily for 30 days. [facility] albuterol HFA (VENTOLIN HFA) 90 mcg/actuati on inhaler 09-07 00:00: 00 10-06 23:59 :00 No 1{puff} Inhale 1 puff by mouth via inhaler every 6 (six) hours as needed for Wheezing for up to 30 days. [facility] metoprolol succinate (TOPROL-XL) 25 MG 24 hr tablet 09-07 00:00: 00 10-06 23:59 :00 No 25mg QD Take 1 tablet (25 mg total) by mouth daily for 30 days. [facility] baclofen (LIORESAL) 5 mg Tab 09-07 00:00: 00 10-06 23:59 :00 No 5mg QD Take 1 tablet (5 mg total) by mouth nightly for 30 days. [facility] lacosamide (VIMPAT) 100 mg in NaCl 0.9% (NS) 50 mL piggyback 08-12 21:15: 00 08-12 21:23 :00 No 100mg 100 mg, IV Piggyback, ONCE, 1 dose, On Thu08/12/23 at 1515, Administer over 30 Minutes, 50 mL
Facu lty member approving Restricted medication : MJ BRYAN [facility] tamsulosin (FLOMAX) 0.4 mg Cap 24 hr capsule 2022-07 00:00: 00 06-22 23:59 :00 No .4mg QD Take 1 capsule (0.4 mg total) by mouth daily for 5 days. [facility] varenicline (CHANTIX) 1 mg tablet 2022-07 19:45: 32 Yes 1mg Q.5D Take 1 tablet (1 mg total) by mouth 2 (two) times daily Give with meals and with a full glass of water.. [facility] atorvastati n (LIPITOR) 20 MG tablet 2022-07 19:45: 32 Yes 20mg QD Take 1 tablet (20 mg total) by mouth daily. [facility] metoprolol succinate (TOPROL-XL) 25 MG 24 hr tablet 2022-07 19:45: 32 09-07 00:00 :00 No 25mg QD Take 1 tablet (25 mg total) by mouth daily. [facility] albuterol HFA (VENTOLIN HFA) 90 mcg/actuati on inhaler 2022-07 19:45: 32 09-07 00:00 :00 No 1{puff} Inhale 1 puff by mouth via inhaler every 6 (six) hours as needed for Wheezing. [facility] fluticasone -umeclidin- vilanter (Trelegy Ellipta) 200-62.5-25 mcg DsDv 2022-07 19:45: 32 09-07 00:00 :00 No QD Inhale by mouth via inhaler daily. [facility] acetaminoph en-codeine (TYLENOL #3) 300-30 mg per tablet 2022-07 18:02: 00 06-16 00:00 :00 No 1{tbl} Take 1 tablet by mouth every 4 (four) hours as needed for Pain. [facility] DULoxetine (CYMBALTA) 30 MG capsule 2022-07 00:00: 00 09-08 00:00 :00 No 30mg QD Take 1 capsule (30 mg total) by mouth daily for 90 days. [facility] metroNIDAZO LE (FLAGYL) 500 MG tablet 2022-07 00:00: 00 07-04 23:59 :00 No 500mg Take 1 tablet (500 mg total) by mouth every 8 (eight) hours for 18 days. [facility] ciprofloxac in HCl (CIPRO) 500 MG tablet 2022-07 00:00: 00 07-04 23:59 :00 No 500mg Q.5D Take 1 tablet (500 mg total) by mouth 2 (two) times daily for 18 days. [facility] cyclobenzap rine (FLEXERIL) 10 MG tablet 2022-07 00:00: 00 06-26 23:59 :00 No 10mg Q.[id number] 3D Take 1 tablet (10 mg total) by mouth 3 (three) times daily for 10 days. [facility] oxyCODONE (OXY-IR) 10 mg tablet 2022-07 00:00: 00 06-26 23:59 :00 No 10mg Take 1 tablet (10 mg total) by mouth every 8 (eight) hours as needed for up to 10 days. Max Daily Amount: 30 mg [facility] nystatin (MYCOSTATIN ) 100,000 unit/mL suspension 2022-07 00:00: 00 06-21 23:59 :00 No [id number] Q.25D Take 5 mLs (500,000 Units total) by mouth 4 (four) times daily for 5 days. [facility] dexAMETHaso ne (DECADRON) 2 MG tablet 2022-07 00:00: 00 06-08 23:59 :00 No 1mg Take 0.5 tablets (1 mg total) by mouth 2 (two) times daily with breakfast and dinner for 2 days. [facility] metoprolol succinate (TOPROL-XL) 25 MG 24 hr tablet 2022-07 17:44: 21 Yes 25mg QD Take 1 tablet (25 mg total) by mouth daily. [facility] varenicline (CHANTIX) 1 mg tablet 2022-07 17:44: 21 Yes 1mg Q.5D Take 1 tablet (1 mg total) by mouth 2 (two) times daily Give with meals and with a full glass of water.. [facility] albuterol HFA (VENTOLIN HFA) 90 mcg/actuati on inhaler 2022-07 17:44: 21 Yes 1{puff} Inhale 1 puff by mouth via inhaler every 6 (six) hours as needed for Wheezing. [facility] fluticasone -umeclidin- vilanter (Trelegy Ellipta) 200-62.5-25 mcg DsDv 2022-07 17:44: 21 Yes QD Inhale by mouth via inhaler daily. [facility] atorvastati n (LIPITOR) 20 MG tablet 2022-07 17:44: 21 Yes 20mg QD Take 1 tablet (20 mg total) by mouth daily. [facility] acetaminoph en-codeine (TYLENOL #3) 300-30 mg per tablet 2022-07 17:44: 21 Yes 1{tbl} Take 1 tablet by mouth every 4 (four) hours as needed for Pain. [facility] senna (SENOKOT) 8.6 mg tablet 2022-07 00:00: 00 06-18 23:59 :00 No 17.2mg Q.5D Take 2 tablets (17.2 mg total) by mouth 2 (two) times daily for 14 days. [facility] cyclobenzap rine (FLEXERIL) 10 MG tablet 2022-07 00:00: 00 06-16 00:00 :00 No 10mg Q.[id number] 3D Take 1 tablet (10 mg total) by mouth 3 (three) times daily for 10 days. [facility] methocarbam oL (ROBAXIN) 500 MG tablet 2022-07 00:00: 00 06-16 00:00 :00 No 500mg Q.25D Take 1 tablet (500 mg total) by mouth 4 (four) times daily for 10 days. [facility] lactulose (CHRONULAC) 20 gram/30 mL solution 2022-07 00:00: 00 06-11 23:59 :00 No 20g Q.[id number] 3D Take 30 mLs (20 g total) by mouth 3 (three) times daily for 7 days. [facility] ondansetron (ZOFRAN-ODT ) 4 MG disintegrat ing tablet 2022-07 00:00: 00 06-11 23:59 :00 No 4mg Take 1 tablet (4 mg total) by mouth every 6 (six) hours as needed for up to 7 days. [facility] metoprolol succinate (TOPROL-XL) 25 MG 24 hr tablet 2022-07 15:23: 22 Yes 25mg QD Take 1 tablet (25 mg total) by mouth daily. [facility] varenicline (CHANTIX) 1 mg tablet 2022-07 15:23: 22 Yes 1mg Q.5D Take 1 tablet (1 mg total) by mouth 2 (two) times daily Give with meals and with a full glass of water.. [facility] albuterol HFA (VENTOLIN HFA) 90 mcg/actuati on inhaler 2022-07 15:23: 22 Yes 1{puff} Inhale 1 puff by mouth via inhaler every 6 (six) hours as needed for Wheezing. [facility] fluticasone -umeclidin- vilanter (Trelegy Ellipta) 200-62.5-25 mcg DsDv 2022-07 15:23: 22 Yes QD Inhale by mouth via inhaler daily. [facility] atorvastati n (LIPITOR) 20 MG tablet 2022-07 15:23: 22 Yes 20mg QD Take 1 tablet (20 mg total) by mouth daily. [facility] acetaminoph en-codeine (TYLENOL #3) 300-30 mg per tablet 2022-07 15:23: 22 Yes 1{tbl} Take 1 tablet by mouth every 4 (four) hours as needed for Pain. [facility] acetaminoph en-codeine (TYLENOL #3) 300-30 mg per tablet 2022-07 09:42: 02 Yes 1{tbl} Take 1 tablet by mouth every 4 (four) hours as needed for Pain. Max Daily Amount: 6 tablets [facility] varenicline (CHANTIX) 1 mg tablet 2022-07 09:40: 04 Yes 1mg Q.5D Take 1 tablet (1 mg total) by mouth 2 (two) times daily Give with meals and with a full glass of water.. [facility] albuterol HFA (VENTOLIN HFA) 90 mcg/actuati on inhaler 2022-07 09:40: 04 Yes 1{puff} Inhale 1 puff by mouth via inhaler every 6 (six) hours as needed for Wheezing. [facility] fluticasone -umeclidin- vilanter (Trelegy Ellipta) 200-62.5-25 mcg DsDv 2022-07 09:40: 04 Yes QD Inhale by mouth via inhaler daily. [facility] atorvastati n (LIPITOR) 20 MG tablet 2022-07 09:40: 04 Yes 20mg QD Take 1 tablet (20 mg total) by mouth daily. [facility] metoprolol succinate (TOPROL-XL) 25 MG 24 hr tablet 2022-07 09:13: 28 Yes 25mg QD Take 1 tablet (25 mg total) by mouth daily. [facility] metoprolol succinate XL 25 mg 24 hr tablet 2022-07 00:00: 00 11-27 00:00 :00 No 25mg Take 1 tablet by mouth every morning. [facility] furosemide (LASIX) 20 MG tablet 04-03 00:00: 00 09-07 00:00 :00 No 20mg QD Take 1 tablet (20 mg total) by mouth daily. [facility] aspirin 81 MG EC tablet 04-03 00:00: 00 07-02 23:59 :00 No 81mg QD Take 1 tablet (81 mg total) by mouth daily for 90 days. [facility] divalproex (DEPAKOTE) 500 MG EC tablet 04-03 00:00: 00 07-02 23:59 :00 No 500mg Q.5D Take 1 tablet (500 mg total) by mouth 2 (two) times daily for 90 days. [facility] gabapentin (NEURONTIN) 300 MG capsule 04-03 00:00: 00 07-02 23:59 :00 No 300mg Q.[id number] 3D Take 1 capsule (300 mg total) by mouth 3 (three) times daily for 90 days. [facility] DULoxetine (CYMBALTA) 30 MG capsule 04-03 00:00: 00 06-16 00:00 :00 No 30mg QD Take 1 capsule (30 mg total) by mouth daily. [facility] lisinopriL (PRINIVIL,Z ESTRIL) 5 MG tablet 04-03 00:00: 00 05-28 00:00 :00 No 5mg QD Take 1 tablet (5 mg total) by mouth daily. [facility] clonazePAM (KlonoPIN) 0.5 MG tablet 04-03 00:00: 00 05-03 23:59 :00 No .25mg Take 0.5 tablets (0.25 mg total) by mouth 2 (two) times daily as needed for Anxiety for up to 30 days. Max Daily Amount: 0.5 mg [facility] HYDROcodone -acetaminop hen (NORCO 10-325) 10-325 mg per tablet 04-03 00:00: 00 04-13 23:59 :00 No 1{tbl} Take 1 tablet by mouth every 6 (six) hours as needed for up to 10 days. Max Daily Amount: 4 tablets [facility] methocarbam oL (ROBAXIN) 500 MG tablet 04-03 00:00: 00 04-13 23:59 :00 No 500mg Q.25D Take 1 tablet (500 mg total) by mouth 4 (four) times daily for 10 days. [facility] gabapentin (NEURONTIN) 300 MG capsule 04-02 00:00: 00 04-03 00:00 :00 No 300mg [id number] 3D Take 1 capsule (300 mg total) by mouth 3 (three) times daily for 90 days. [facility] divalproex (DEPAKOTE) 500 MG EC tablet 04-02 00:00: 00 04-03 00:00 :00 No 500mg Q.5D Take 1 tablet (500 mg total) by mouth 2 (two) times daily for 90 days. [facility] clonazePAM (KlonoPIN) 0.5 MG tablet 04-02 00:00: 00 04-03 00:00 :00 No .25mg Take 0.5 tablets (0.25 mg total) by mouth 2 (two) times daily as needed for Anxiety for up to 30 days. Max Daily Amount: 0.5 mg [facility] HYDROcodone -acetaminop hen (NORCO 10-325) 10-325 mg per tablet 04-02 00:00: 00 04-03 00:00 :00 No 1{tbl} Take 1 tablet by mouth every 6 (six) hours as needed for up to 10 days. Max Daily Amount: 4 tablets [facility] methocarbam oL (ROBAXIN) 500 MG tablet 9-14 00:00: 00 15 00:00 :00 No 500mg Q.25D Take 1 tablet (500 mg total) by mouth 4 (four) times daily for 10 days. [facility] divalproex 500 mg delayed release tablet 6-29 00:00: 00 11-27 00:00 :00 No 500mg Take 1 tablet by mouth in the morning and 1 tablet in the evening. [facility] lacosamide (VIMPAT) 200 mg in NaCl 0.9% (NS) 50 mL piggyback 12-11 19:45: 00 12-11 19:57 :00 No 200mg 200 mg, IV Piggyback, ONCE, 1 dose, On Arpita 12/11/22 at 1445, Administer over 30 Minutes, 50 mL
Facu lty member approving Restricted medication : Alfonso ALVARADO [facility] ketorolac (TORADOL) injection 15 mg 12-11 18:15: 00 12-11 17:25 :00 No 15mg 15 mg, Slow IV Push, ONCE, 1 dose, [facility] Arpita 12/11/22 at 1315[facility] 370-500 mL) injection 80 mL 12-11 16:30: 00 12-11 16:27 :00 No [id number] 80mL 80 mL, Intravenou s, ONCE, 1 dose, On Arpita 12/11/22 at 1130, Routine [facility] nitroglycer in (NITROL) 2 % ointment 0.5 Inch 12-11 15:30: 00 12-11 14:31 :00 No .5[in_u s] 0.5 Inch, Transderma l (Apply To Skin), ONCE, 1 dose, On Arpita 12/11/22 at 1030, MICHAEL [facility] aspirin chewable tablet 324 mg 12-11 15:30: 00 12-11 14:30 :00 No 324mg 324 mg, Oral, ONCE, 1 dose, On Thu12/11/22 at 1030, Routine [facility] ondansetron (ZOFRAN (PF)) injection 4 mg 12-11 15:30: 00 12-11 14:29 :00 No 4mg 4 mg, Slow IV Push, ONCE, 1 dose, On Thu12/11/22 at 1030, [facility] LOR[facility] (ATIVAN) injection 1 mg 12-11 15:00: 00 12-11 14:57 :00 No 1mg 1 mg, Slow IV Push, ONCE, 1 dose, On Thu12/11/22 at 1000, [facility] Lacosamide (VIMPAT) 100 mg tablet 12-11 00:00: 00 Yes [id number] 100mg Take 1 tablet by mouth in the morning and 1 tablet in the evening. [facility] acetaminoph en-codeine (TYLENOL #3) 300-30 mg tablet 1 tablet 11-18 05:30: 00 11-18 05:30 :00 No 1{tbl} 1 tablet, Oral, ONCE, 1 dose, On Thu11/18/22 at 0030, [facility] methocarbam oL (ROBAXIN) tablet 1,000 mg 11-18 05:30: 00 11-18 05:30 :00 No 1000mg 1,000 mg, Oral, ONCE, 1 dose, On Thu11/18/22 at 0030, [facility] ondansetron (ZOFRAN (PF)) injection 4 mg 11-18 04:45: 00 11-18 03:38 :00 No 4mg 4 mg, Slow IV Push, ONCE, 1 dose, On Thu11/17/22 at 2345, [facility] morpHINE (4 mg/mL) injection 4 mg 11-18 03:45: 00 11-18 03:38 :00 No 4mg 4 mg, Slow IV Push, ONCE, 1 dose, On Thu11/17/22 at 2245, Routine [facility] methocarbam oL (ROBAXIN) injection 1,000 mg 11-18 00:30: 00 11-17 23:47 :00 No 1000mg 1,000 mg, Intravenou s, ONCE, 1 dose, On Thu11/17/22 at 1930, MICHAEL [facility] methocarbam oL 500 mg tablet 11-18 00:00: 00 12-02 00:00 :00 No [id number] 1000mg Take 2 tablets by mouth 4 (four) times daily as needed for Pain (scale 7-10). [facility] acetaminoph en-codeine 300-60 mg tablet 11-18 00:00: 00 11-26 04:59 :00 No [id number] 1{tbl} Take 1 tablet by mouth every 6 (six) hours as needed for Pain for up to 7 days. Indication s: acute pain [facility] ketorolac (TORADOL) injection 15 mg 11-18 00:00: 00 11-17 23:08 :00 No 15mg 15 mg, Slow IV Push, ONCE, 1 dose, On Thu11/17/22 at 1900, Routine [facility] morpHINE (4 mg/mL) injection 4 mg 11-17 23:45: 00 11-17 23:49 :00 No 4mg 4 mg, Slow IV Push, ONCE, 1 dose, On Thu11/17/22 at 1845, Routine [facility] ondansetron (ZOFRAN (PF)) injection 4 mg 11-17 23:15: 00 11-17 23:06 :00 No 4mg 4 mg, Slow IV Push, ONCE, 1 dose, On Thu11/17/22 at 1815, MICHAEL [facility] lisinopriL (PRINIVIL,Z ESTRIL) tablet 10 mg 08-02 15:00: 00 Yes 10mg 10 mg, Oral, DAILY, First dose on Thu08/02/22 at 0900, Until Discontinu ed, Routine [facility] predniSONE (DELTASONE) tablet 40 mg 08-02 15:00: 00 08-07 14:59 :00 No 40mg 40 mg, Oral, DAILY, 5 doses, First dose on Thu08/02/22 at 0900, Last dose on Thu08/06/22 at 0900, Routine [facility] morpHINE (2 mg/mL) injection 2 mg 08-02 03:29: 15 Yes 2mg 2 mg, Slow IV Push, Q4HPRN, Starting on Thu08/01/22 at 2129, Until Discontinu ed, Routine, Pain (scale 7-10) [facility] levETIRAcet am (KEPPRA) in NACL (ISO-OS) 1,000 mg/100 mL RTU 08-02 00:00: 00 Yes 1000mg 1,000 mg, IV Piggyback, Q12H, First dose on Thu08/01/22 at 1800, Until Discontinu ed, Administer over 15 Minutes, 100 mL [facility] MULTIVITAMI N ORAL 08-01 23:49: 34 Yes 1{tbl} Take 1 Tab by mouth daily. [facility] omega-3 fatty acids-vitam in E (FISH OIL) 1,000 mg capsule 08-01 23:49: 34 Yes 1g Take 1 g by mouth daily. [facility] loratadine (CLARITIN LIQUI-GEL) 10 mg capsule 08-01 23:49: 34 Yes Take by mouth daily. [facility] ondansetron 4 mg tablet 08-01 23:49: 34 Yes 4mg Take 1 tablet by mouth every 8 (eight) hours as needed for Nausea and Vomiting (N/V). [facility]-3 fatty acids-vitam in E (FISH OIL) 1,000 mg capsule 08-01 23:49: 34 Yes 1g Take 1 g by mouth daily. [facility] pantop[facility] e 40 mg EC tablet 08-01 23:49: 34 11-27 00:00 :00 No 40mg Take 40 mg by mouth daily. [facility] benzonatate (TESSALON PERLES) capsule 100 mg 08-01 20:00: 00 Yes 100mg 100 mg, Oral, Q8H, First dose on Thu08/01/22 at 1400, Until Discontinu ed, Routine [facility] ipratropium -albuteroL (DUONEB) 0.5 mg-3 mg(2.5 mg base)/3 mL nebulizer solution 3 mL 08-01 18:00: 00 Yes 3mL 3 mL, Inhalation , QID, First dose on Thu08/01/22 at 1200, Until Discontinu ed, Routine [facility] ipratropium -albuteroL (DUONEB) 0.5 mg-3 mg(2.5 mg base)/3 mL nebulizer solution 3 mL 08-01 17:07: 07 Yes 3mL 3 mL, Inhalation , QIDPRN, Starting on Thu08/01/22 at 1107, Until Discontinu ed, MICHAEL, Wheezing, Shortness of Breath [facility] sulfur hexafluorid e microsphr (LUMASON) injection 5 mL 08-01 17:00: 00 08-01 17:00 :00 No [id number] 5mL 5 mL, Intravenou s, ONCE, 1 dose, On Thu08/01/22 at 1100, Routine
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 : KYLEE MONTEZ [facility] pantoprazol e (PROTONIX) EC tablet 40 mg 08-01 15:00: 00 Yes 40mg 40 mg, Oral, DAILY, First dose on Thu08/01/22 at 0900, Until Discontinu ed, Routine [facility] aspirin chewable tablet 81 mg 08-01 15:00: 00 Yes 81mg 81 mg, Oral, DAILY, First dose on Thu08/01/22 at 0900, Until Discontinu ed, Routine [facility] amLODIPine (NORVASC) tablet 10 mg 08-01 15:00: 00 Yes 10mg 10 mg, Oral, DAILY, First dose on Thu08/01/22 at 0900, Until Discontinu ed, Routine [facility] levETIRAcet am (KEPPRA) tablet 500 mg 08-01 14:00: 00 08-01 23:56 :35 No 500mg 500 mg, Oral, BID, First dose on Thu08/01/22 at 0800, Until Discontinu ed, Routine [facility] carvediloL (COREG) tablet 6.25 mg 08-01 14:00: 00 08-01 17:29 :13 No 6.25mg 6.25 mg, Oral, BID MEALS, First dose on Thu08/01/22 at 0800, Until Discontinu ed, [facility] (KEPPRA) in NACL (ISO-OS) 1,000 mg/100 mL RTU 08-01 06:45: 00 08-01 06:32 :00 No 1000mg 1,000 mg, IV Piggyback, ONCE, 1 dose, On Thu08/01/22 at 0045, Administer over 15 Minutes, 100 mL [facility] LORazepam (ATIVAN) injection 1 mg 08-01 05:52: 54 Yes 1mg 1 mg, Slow IV Push, Q4HPRN, Starting on Thu07/31/22 at 2352, Until Discontinu ed, Routine, Seizures, Agitation, Anxiety, ETOH / Cocaine Withdrawl [facility] foLIC acid (FOLATE) tablet 1 mg 08-01 05:45: 00 Yes 1mg 1 mg, Oral, DAILY, First dose on Thu07/31/22 at 2345, Until Discontinu ed, [facility]ine [facility] thi[facility] (VIT[facility]IN B1) tablet 100 mg 08-01 05:45: 00 Yes 100mg 100 mg, Oral, DAILY, First dose on Thu07/31/22 at 2345, Until Discontinu ed, [facility]ine [facility] LORazepam (ATIVAN) injection 0.5 mg 08-01 05:30: 00 08-01 05:29 :00 No .5mg 0.5 mg, Slow IV Push, ONCE, 1 dose, On Thu07/31/22 at 2330, MICHAEL [facility] atorvastati n (LIPITOR) tablet 40 mg 08-01 03:00: 00 Yes 40mg 40 mg, Oral, QHS, First dose on Thu07/31/22 at 2100, Until Discontinu ed, Routine [facility] diphenhydrA MINE (BENADRYL) tablet 25 mg 08-01 00:32: 02 Yes 25mg 25 mg, Oral, Q6HPRN, Starting on Thu07/31/22 at 1832, Until Discontinu ed, Routine, Itching [facility] enoxaparin (LOVENOX) injection 40 mg 07-31 23:00: 00 Yes 40mg 40 mg, Subcutaneo us, DAILY, First dose on Thu07/31/22 at 1700, Until Discontinu ed, Routine [facility] morpHINE (2 mg/mL) injection 2 mg 07-31 23:00: 00 07-31 22:29 :00 No 2mg 2 mg, Slow IV Push, ONCE, 1 dose, On Thu07/31/22 at 1700, Routine [facility] HYDROcodone -acetaminop hen (NORCO) 10-325 mg tablet 1 tablet 07-31 22:01: 36 Yes 1{tbl} 1 tablet, Oral, Q6HPRN, Starting on Thu07/31/22 at 1601, Until Discontinu ed, Routine, Pain (scale 7-10) [facility] HYDROcodone -acetaminop hen (NORCO 5) 5-325 mg tablet 1 tablet 07-31 22:01: 34 08-02 22:00 :34 No 1{tbl} 1 tablet, Oral, Q6HPRN, Starting on Thu07/31/22 at 1601, Until 08/02/22 at 1600, Routine, Pain (scale 4-6) [facility] acetaminoph en (TYLENOL) tablet 650 mg 07-31 22:01: 33 Yes 650mg 650 mg, Oral, Q6HPRN, Starting on Thu07/31/22 at 1601, Until Discontinu ed, Routine, Pain (scale 1-3) [facility] ketorolac (TORADOL) injection 15 mg 07-31 21:45: 00 07-31 20:50 :00 No 15mg 15 mg, Slow IV Push, ONCE, 1 dose, On Arpita 07/31/22 at 1545, Routine [facility] ondansetron (ZOFRAN (PF)) injection 4 mg 07-31 21:00: 00 07-31 20:47 :00 No 4mg 4 mg, Slow IV Push, ONCE, 1 dose, On Arpita 07/31/22 at 1500, MICHAEL [facility] furosemide (LASIX) injection 40 mg 07-31 20:15: 00 Yes 40mg 40 mg, Slow IV Push, Q12H, First dose on Arpita 07/31/22 at 1415, Until Discontinu ed, Routine [facility] methylpredn isolone sod succ (SOLU-MEDRO L) injection 125 mg 07-31 19:30: 00 07-31 18:54 :00 No 125mg 125 mg, Slow IV Push, ONCE NOW, 1 dose, On Arpita 07/31/22 at 1330, MICHAEL [facility] ipratropium -albuteroL (DUONEB) 0.5 mg-3 mg(2.5 mg base)/3 mL nebulizer solution 3 mL 07-31 19:30: 00 07-31 18:48 :00 No 3mL 3 mL, Inhalation , ONCE, 1 dose, On Arpita 07/31/22 at 1330, MICHAEL [facility] pantoprazol e 40 mg EC tablet 07-31 17:15: 40 Yes 40mg Take 40 mg by mouth daily. [facility] MULTIVITAMI N ORAL 07-31 15:50: 57 Yes 1{tbl} Take 1 Tab by mouth daily. [facility] loratadine (CLARITIN LIQUI-GEL) 10 mg capsule 07-31 15:50: 57 Yes Take by mouth daily. [facility] ondansetron 4 mg tablet 07-31 15:50: 57 Yes 4mg Take 4 mg by mouth every 8 (eight) hours as needed. [facility] omega-3 fatty acids-vitam in E (FISH OIL) 1,000 mg capsule 07-31 15:21: 27 Yes 1g Take 1 g by mouth daily. [facility] TAKE ONE (1) TABLET(S) BY MOUTH THREE TIMES A DAY NEEDED. 07-28 00:00: 00 No Methylpredn isolone 4 mg tablet 2021-07 00:00: 00 05-12 04:59 :00 No [id number] 4mg Take 1 tablet through enteral tube in the morning for 1 dose. [facility] Methylpredn isolone 4 mg tablet 2021-07 00:00: 00 05-11 04:59 :00 No [id number] 4mg Take 1 tablet through enteral tube every 12 (twelve) hours for 2 doses. [facility] MULTIVITAMI N ORAL 2021-07 14:44: 48 Yes 1{tbl} Take 1 Tab by mouth daily. [facility] omega-3 fatty acids-vitam in E (FISH OIL) 1,000 mg capsule 2021-07 14:44: 48 Yes 1g Take 1 g by mouth daily. [facility] loratadine (CLARITIN LIQUI-GEL) 10 mg capsule 2021-07 14:44: 48 Yes Take by mouth daily. [facility] ondansetron (ZOFRAN) 4 mg tablet 2021-07 14:44: 48 Yes 4mg Take 4 mg by mouth every 8 (eight) hours as needed. [facility] pantoprazol e (PROTONIX) 40 mg EC tablet 2021-07 14:44: 48 Yes 40mg Take 40 mg by mouth daily. [facility] DULoxetine 30 mg capsule 2021-07 14:00: 00 Yes 30mg Take 1 capsule by mouth in the morning. [facility] divalproex (DEPAKOTE) EC tablet 1,000 mg 2021-07 13:00: 00 Yes 1000mg 1,000 mg, Oral, BID, First dose (after last modificati on) on Thu05/08/22 at 0800, Until Discontinu ed, Routine [facility] Methylpredn isolone (MEDROL) tablet 4 mg 2021-07 08:50: 10 05-09 08:59 :00 No 4mg 4 mg, Oral, Q8H TAPER, 3 doses, First dose on Thu05/08/22 at 0400, Last dose on Thu05/08/22 at 2000, Routine [facility] acetaminoph en-codeine (TYLENOL #3) 300-30 mg tablet 1 tablet 2021-07 04:07: 01 Yes 1{tbl} 1 tablet, Oral, Q4HPRN, Starting on Thu05/07/22 at 2307, Until Discontinu ed, Routine, Pain (scale 7-10) [facility] morpHINE (2 mg/mL) injection 2 mg 2021-07 03:03: 15 Yes 2mg 2 mg, Slow IV Push, Q4HPRN, Starting on Thu05/07/22 at 2203, Until Discontinu ed, Routine, Pain (scale 7-10) [facility] LORazepam (ATIVAN) tablet 1 mg 2021-07 00:02: 18 Yes 1mg 1 mg, Oral, Q6HPRN, Starting on Thu05/07/22 at 1902, Until Discontinu ed, Routine, Anxiety [facility] cyclobenzap rine 5 mg tablet 2021-07 00:00: 00 Yes [id number] 5mg Take 1 tablet by mouth in the morning and 1 tablet at noon and 1 tablet in the evening. [facility] DULoxetine (CYMBALTA) 30 mg capsule 2021-07 00:00: 00 06-08 05:59 :00 No [id number] 60mg Take 2 capsules by mouth in the morning for 30 days. [facility] divalproex (DEPAKOTE) 250 mg EC tablet 2021-07 00:00: 00 06-08 05:59 :00 No [id number] 750mg Take 3 tablets by mouth every 8 (eight) hours for 30 days. [facility] LORazepam 1 mg tablet 2021-07 00:00: 00 05-19 04:59 :00 No [id number] 1mg Take 1 tablet by mouth every 6 (six) hours as needed for Anxiety or Agitation for up to 10 days. [facility] acetaminoph en-codeine 300-30 mg tablet 2021-07 00:00: 00 05-16 04:59 :00 No [id number] 1{tbl} Take 1 tablet by mouth every 4 (four) hours as needed for Pain (scale 7-10) for up to 7 days. Indication s: acute pain [facility] Methylpredn isolone 4 mg tablet 2021-07 00:00: 00 05-10 04:59 :00 No [id number] 4mg Take 1 tablet by mouth every 8 (eight) hours for 3 doses. [facility] divalproex (DEPAKOTE) EC tablet 750 mg 2021-07 01:00: 00 05-08 09:40 :23 No 750mg 750 mg, Oral, BID, First dose on Thu05/06/22 at 2000, Until Discontinu ed, Routine [facility] levETIRAcet am (KEPPRA) tablet 1,500 mg 2021-07 13:00: 00 05-06 18:38 :22 No 1500mg 1,500 mg, Oral, BID, First dose (after last modificati on) on Thu05/06/22 at 0800, Until Discontinu ed, Routine [facility] levETIRAcet am (KEPPRA) in NACL (ISO-OS) 1,000 mg/100 mL RTU 2021-07 05:00: 00 05-06 05:46 :00 No 1000mg 1,000 mg, IV Piggyback, ONCE, 1 dose, On Thu05/06/22 at 0000, Administer over 15 Minutes, 100 mL [facility] methocarbam oL (ROBAXIN) tablet 500 mg 2021-07 02:15: 00 05-06 23:21 :42 No 500mg 500 mg, Oral, QID, First dose on Thu05/05/22 at 2115, Until Discontinu ed, Routine [facility] LORazepam (ATIVAN) tablet 2 mg 2021-07 01:30: 00 05-06 01:03 :00 No 2mg 2 mg, Oral, ONCE, 1 dose, On Thu05/05/22 at 2030, Routine [facility] levETIRAcet am (KEPPRA) tablet 1,000 mg 2021-07 01:00: 00 05-06 04:48 :06 No 1000mg 1,000 mg, Oral, BID, First dose on Thu05/05/22 at 2000, Until Discontinu ed, Routine [facility] enoxaparin (LOVENOX) injection 40 mg 2021-07 00:15: 00 Yes 40mg 40 mg, Subcutaneo us, Q24H, First dose on Thu05/05/22 at 1915, Until Discontinu ed, Routine [facility] levETIRAcet am (KEPPRA) in NACL (ISO-OS) 1,000 mg/100 mL RTU 2021-07 19:45: 00 05-05 20:05 :00 No 1000mg 1,000 mg, IV Piggyback, ONCE, 1 dose, On Thu05/05/22 at 1445, Administer over 15 Minutes, 100 mL [facility] clonazePAM (KLONOPIN) tablet 0.5 mg 2021-07 19:30: 00 Yes .5mg 0.5 mg, Oral, BID, First dose on Thu05/05/22 at 1430, Until Discontinu ed, Routine [facility] ibuprofen (IBU) tablet 600 mg 2021-07 19:30: 00 Yes 600mg 600 mg, Oral, TID MEALS, First dose on Thu05/05/22 at 1430, Until Discontinu ed, Routine [facility] gabapentin (NEURONTIN) capsule 300 mg 2021-07 19:30: 00 Yes 300mg 300 mg, Oral, TID, First dose on Thu05/05/22 at 1430, Until Discontinu ed, [facility]IL[facility] tablet 5 mg 2021-07 19:30: 00 Yes 5mg 5 mg, Oral, TID, First dose on Thu05/05/22 at 1430, Until Discontinu ed, [facility]ine [facility] acetaminoph en (TYLENOL) tablet 1,000 mg 2021-07 19:30: 00 Yes 1000mg 1,000 mg, Oral, Q8H, First dose on Thu05/05/22 at 1430, Until Discontinu ed, [facility]ine [facility] pantoprazol e (PROTONIX) EC tablet 40 mg 2021-07 14:00: 00 Yes 40mg 40 mg, Oral, DAILY, First dose on Thu05/05/22 at 0900, Until Discontinu ed, Routine [facility] docusate (COLACE) capsule 100 mg 2021-07 14:00: 00 Yes 100mg 100 mg, Oral, DAILY, First dose on Thu05/05/22 at 0900, Until Discontinu ed, Routine [facility] HYDROcodone -acetaminop hen (NORCO) 10-325 mg tablet 1 tablet 2021-07 10:32: 02 05-05 19:18 :52 No 1{tbl} 1 tablet, Oral, Q6HPRN, Starting on Thu05/05/22 at 0532, Until Thu05/05/22 at 1418, Routine, Pain (scale 7-10) [facility] ondansetron (ZOFRAN (PF)) injection 4 mg 2021-07 06:49: 57 Yes 4mg 4 mg, Slow IV Push, Q6HPRN, Starting on Thu05/05/22 at 0149, Until Discontinu ed, Routine, Nausea and Vomiting (N/V) [facility] HYDROcodone -acetaminop hen (NORCO 5) 5-325 mg tablet 1 tablet 2021-07 06:49: 41 05-05 10:32 :14 No 1{tbl} 1 tablet, Oral, Q6HPRN, Starting on Thu05/05/22 at 0149, Until Thu05/05/22 at 0532, Routine, Pain (scale 7-10) [facility] acetaminoph en (TYLENOL) tablet 325 mg 2021-07 06:49: 39 05-05 19:18 :52 No 325mg 325 mg, Oral, Q4HPRN, Starting on Thu05/05/22 at 0149, Until Thu05/05/22 at 1418, Routine, Pain (scale 4-6) [facility] ondansetron (ZOFRAN) tablet 4 mg 2021-07 04:00: 00 05-05 03:26 :00 No 4mg 4 mg, Oral, ONCE, 1 dose, On Thu05/04/22 at 2300, Routine [facility] morpHINE (2 mg/mL) injection 2 mg 2021-07 04:00: 00 05-05 03:26 :00 No 2mg 2 mg, Slow IV Push, ONCE, 1 dose, On Thu05/04/22 at 2300, Routine [facility] aspirin 81 mg chewable tablet 04-16 00:00: 00 Yes [id number] 81mg Take 1 tablet by mouth in the morning. [facility] MULTIVITAMI N ORAL 04-15 17:39: 14 Yes 1{tbl} Take 1 Tab by mouth daily. [facility] omega-3 fatty acids-vitam in E (FISH OIL) 1,000 mg capsule 04-15 17:39: 14 Yes 1g Take 1 g by mouth daily. [facility] loratadine (CLARITIN LIQUI-GEL) 10 mg capsule 04-15 17:39: 14 Yes Take by mouth daily. [facility] ondansetron (ZOFRAN) 4 mg tablet 04-15 17:39: 14 Yes 4mg Take 4 mg by mouth every 8 (eight) hours as needed. [facility] pantoprazol e (PROTONIX) 40 mg EC tablet 04-15 17:39: 14 Yes 40mg Take 40 mg by mouth daily. [facility] lisinopril- hydrochloro thiazide 20-12.5 mg per tablet 04-15 15:58: 35 04-15 00:00 :00 No 1{tbl} Take 1 tablet by mouth daily. [facility] levetiracet am (KEPPRA ORAL) 04-15 15:58: 35 04-15 00:00 :00 No Take by mouth. [facility] acetaminoph en-codeine (TYLENOL #4) 300-60 mg tablet 1 tablet 04-15 05:39: 23 04-15 14:39 :42 No 1{tbl} 1 tablet, Oral, Q6HPRN, Starting on Thu04/15/22 at 0039, Until Thu04/15/22 at 0939, Routine, Pain (scale 4-6), Pain (scale 1-3) [facility] LORazepam (ATIVAN) tablet 2 mg 04-15 03:30: 00 04-15 10:27 :00 No 2mg 2 mg, Oral, ONCE, 1 dose, On Thu04/14/22 at 2230, Routine [facility] levETIRAcet am (KEPPRA) tablet 1,000 mg 04-15 02:45: 00 Yes 1000mg 1,000 mg, Oral, BID, First dose (after last modificati on) on Thu04/14/22 at 2145, Until Discontinu ed, Routine [facility] ketorolac (TORADOL) injection 15 mg 04-15 02:13: 00 04-15 02:22 :00 No 15mg 15 mg, Slow IV Push, ONCE, 1 dose, On Thu04/14/22 at 2115, Routine [facility] levETIRAcet am 1,000 mg tablet 04-15 00:00: 00 Yes [id number] 1000mg Take 1 tablet by mouth in the morning and 1 tablet in the evening. [facility] atorvastati n 40 mg tablet 04-15 00:00: 00 01-09 00:00 :00 No [id number] 40mg Take 1 tablet by mouth at bedtime. [facility] lidocaine 5 % (700 mg/patch) patch 04-15 00:00: 00 04-23 04:59 :00 No [id number] 1{patch } Apply 1 Patch to area(s) in the morning for 7 days. [facility] HYDROcodone -acetaminop hen 5-325 mg tablet 04-15 00:00: 00 04-21 04:59 :00 No [id number] 1{tbl} Take 1 tablet by mouth every 6 (six) hours as needed for Pain (scale 7-10) for up to 5 days. Indication s: acute pain [facility] lidocaine (LIDODERM) 5 % (700 mg/patch) patch 1 Patch 04-14 21:45: 29 Yes 1{patch } 1 Patch, Topical, Administer over 12 Hours, [id number], Starting on Thu04/14/22 at 1645, Until Discontinu ed, Routine, Localized pain [facility] aspirin chewable tablet 81 mg 04-14 21:30: 00 Yes 81mg 81 mg, Oral, DAILY, First dose on Thu04/14/22 at 1630, Until Discontinu ed, Routine [facility] acetaminoph en (TYLENOL) tablet 650 mg 04-14 21:29: 25 Yes 650mg 650 mg, Oral, Q6HPRN, Starting on Thu04/14/22 at 1629, Until Discontinu ed, Routine, Pain (scale 1-3), Temp > 38.5 C, Temp > 37.5 C [facility] HYDROcodone -acetaminop hen (NORCO) 10-325 mg tablet 1 tablet 04-14 21:29: 02 04-15 05:39 :41 No 1{tbl} 1 tablet, Oral, Q6HPRN, Starting on Thu04/14/22 at 1629, Until 9/27/22 at 0039, Routine, Pain (scale 7-10), Pain (scale 4-6) [facility] sulfur hexafluorid e microsphr (LUMASON) injection 5 mL 04-14 16:45: 00 04-14 16:45 :00 No [id number] 5mL 5 mL, Intravenou s, ONCE, 1 dose, On Thu04/14/22 at 1145, Routine
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 : MADELINE PIERRE [facility] clopidogreL (PLAVIX) 75 mg tablet 75 mg 04-14 14:00: 00 Yes 75mg 75 mg, Oral, DAILY, First dose on Thu04/14/22 at 0900, Until Discontinu ed, Routine [facility] pantoprazol e (PROTONIX) EC tablet 40 mg 04-14 14:00: 00 Yes 40mg 40 mg, Oral, DAILY, First dose on Thu04/14/22 at 0900, Until Discontinu ed, Routine [facility] atorvastati n (LIPITOR) tablet 40 mg 04-14 02:00: 00 Yes 40mg 40 mg, Oral, QHS, First dose on Thu04/13/22 at 2100, Until Discontinu ed, Routine [facility] LORazepam (ATIVAN) tablet 1 mg 04-14 01:30: 00 04-14 01:45 :00 No 1mg 1 mg, Oral, ONCE, 1 dose, On Thu04/13/22 at 2030, Routine [facility] methocarbam oL (ROBAXIN) tablet 500 mg 04-14 01:00: 00 Yes 500mg 500 mg, Oral, QID, First dose on Thu04/13/22 at 2000, Until Discontinu ed, Routine [facility] heparin (porcine) injection 5,000 Units 04-14 01:00: 00 Yes 5000U 5,000 Units, Subcutaneo us, Q12H, First dose on Thu04/13/22 at 2000, Until Discontinu ed, Routine [facility] acetaminoph en (TYLENOL) tablet 650 mg 04-14 00:23: 25 04-14 21:29 :42 No 650mg 650 mg, Oral, Q6HPRN, Starting on Thu04/13/22 at 1923, Until Thu04/14/22 at 1629, Routine, Pain (scale 1-3), Pain (scale 4-6), Temp > 38.5 C, Temp > 37.5 C [facility] lidocaine (LIDODERM) 5 % (700 mg/patch) patch 1 Patch 04-14 00:22: 00 04-14 13:51 :00 No 1{patch } 1 Patch, Topical, Administer over 12 Hours, ONCE, 1 dose, On Thu04/13/22 at 1930, Routine [facility] FENTanyl PF (SUBLIMAZE (PF)) injection 50 mcg 04-13 20:30: 00 04-13 19:22 :00 No 50ug 50 mcg, Slow IV Push, ONCE, 1 dose, On Thu04/13/22 at 1530, Routine [facility] aspirin chewable tablet 650 mg 04-13 20:15: 00 04-13 20:15 :00 No 650mg 650 mg, Oral, ONCE, 1 dose, On Thu04/13/22 at 1515, Routine [facility] clopidogreL (PLAVIX) 300 mg tablet 300 mg 04-13 20:00: 00 04-13 19:15 :00 No 300mg 300 mg, Oral, ONCE, 1 dose, On Thu04/13/22 at 1500, Routine [facility] ondansetron (ZOFRAN (PF)) injection 4 mg 04-13 19:30: 00 04-13 19:22 :00 No 4mg 4 mg, Slow IV Push, ONCE, 1 dose, On Thu04/13/22 at 1430, MICHAEL [facility] iopamidol (ISOVUE 370-500 mL) injection 100 mL 04-13 18:31: 00 04-13 18:32 :00 No [id number] 100mL 100 mL, Intravenou s, ONCE, 1 dose, On 04/13/22 at 1345, Routine [facility] NaCl 0.9% (NS) injection 5 mL 04-13 18:14: 11 Yes 5mL 5 mL, Slow IV Push, PRN - SEE INSTRUCTIO NS, Starting on 04/13/22 at 1314, Until Discontinu ed, 10 mL [facility] aspirin chewable tablet 324 mg 11-24 14:00: 00 Yes 324mg 324 mg, Oral, DAILY, First dose on 11/24/21 at 0900, Until Discontinu ed, Routine [facility] metoclopram iker HCl (REGLAN) injection 10 mg 11-23 22:30: 00 11-23 21:24 :00 No 10mg 10 mg, Slow IV Push, ONCE, 1 dose, On 11/23/21 at 1730, [facility] acetaminoph en (TYLENOL) tablet 1,000 mg 11-23 22:15: 00 11-23 21:09 :00 No 1000mg 1,000 mg, Oral, ONCE, 1 dose, On 11/23/21 at 1715, [facility] ondansetron (ZOFRAN (PF)) injection 4 mg 11-23 21:45: 00 11-23 20:30 :00 No 4mg 4 mg, Slow IV Push, ONCE, 1 dose, On 11/23/21 at 1645, [facility] NaCl 0.9% (NS) bolus infusion 1,000 mL 11-23 21:30: 00 11-23 21:56 :00 No 1000mL at 999 mL/hr, 1,000 mL, IV Infusion, ONCE, 1 dose, On 11/23/21 at 1630, [facility] LORazepam (ATIVAN) injection 4 mg 11-23 21:30: 00 11-23 20:23 :00 No 4mg 4 mg, Slow IV Push, ONCE, 1 dose, On 5/7/22 at 1630, STAT [facility] levETIRAcet am (KEPPRA) in NACL (ISO-OS) 1,500 mg/100 mL RTU 2021-0 5-07 21:30: 00 - 20:47 :00 No 1500mg 1,500 mg, IV Piggyback, ONCE, 1 dose, On 11/23/21 at 1630, Administer over 15 Minutes, 100 mL [facility] Dose Unknown 202-0 4-08 00:00: 00 No Dose Unknown 2021-0 4-08 00:00: 00 No Prozac 20 mg capsule 2021-0 3-21 00:00: 00 No 1mg Prozac 20 mg capsule 2021-0 3-21 00:00: 00 No 1mg Dose Unknown 202-0 3-16 00:00: 00 No [...]
Durat ion of Therapy: 7 days [facility] morpHINE injection 4 mg 03-17 01:58: 00 03-17 02:13 :00 No 4mg 4 mg, Slow IV Push, ONCE, 1 dose, 03/16/21 at 2100, STAT [facility] ondansetron (ZOFRAN (PF)) injection 4 mg 03-17 01:58: 00 03-17 02:12 :00 No 4mg 4 mg, Slow IV Push, ONCE, 1 dose, 03/16/21 at 2100, MICHAEL [facility] ipratropium -albuteroL (DUONEB) 0.5 mg-3 mg(2.5 mg base)/3 mL nebulizer solution 3 mL 03-17 01:57: 00 03-17 02:15 :00 No 3mL 3 mL, Inhalation , ONCE, 1 dose, 03/16/21 at 2100, MICHAEL [facility] NaCl 0.9% (NS) IV infusion 1,000 mL 03-17 01:57: 00 03-17 03:07 :00 No 1000mL at 999 mL/hr, Intravenou s, ONCE, 1 dose, 03/16/21 at 2100, MICHAEL [facility] methylpredn isolone sod succ (SOLU-MEDRO L) injection 125 mg 03-17 01:57: 00 03-17 02:11 :00 No 125mg 125 mg, Slow IV Push, ONCE, 1 dose, 03/16/21 at 2100, STAT [facility] levoFLOXaci n 500 mg tablet 03-17 00:00: 00 03-24 04:59 :00 No [id number] 500mg Take 1 tablet by mouth daily for 6 days. [facility] predniSONE 10 mg tablet 03-17 00:00: 00 03-22 04:59 :00 No [id number] 30mg Take 3 tablets by mouth daily for 4 days. [facility] albuterol (VENTOLIN) inhaler 4 Puff 03-15 01:45: 00 03-15 00:44 :00 No [id number] 4{puff} 4 Puff, Inhalation , ONCE, 1 dose, Arpita 03/14/21 at 2044, Routine [facility] dexamethaso ne (DECADRON) injection 10 mg 03-15 01:45: 00 03-15 00:45 :00 No [id number] 10mg 10 mg, Intramuscu lar, ONCE, 1 dose, Arpita 03/14/21 at 2044, Routine [facility] albuterol 2.5 mg /3 mL (0.083 %) nebulizer solution 03-15 00:00: 00 01-09 00:00 :00 No [id number] 2.5mg Inhale 3 mL every 4 (four) hours as needed for Wheezing or Shortness of Breath. [facility] levETIRAcet am (KEPPRA) in NACL (ISO-OS) 1,000 mg/100 mL RTU 02-19 20:15: 00 02-19 19:30 :00 No 1000mg 1,000 mg, IV Infusion, ONCE, 1 dose, 02/19/21 at 1515, Administer over 15 Minutes, 100 mL [facility] levetiracet am (KEPPRA ORAL) 02-19 19:45: 33 Yes Take by mouth. [facility] LISINOPRIL- HYDROCHLORO THIAZIDE ORAL 02-19 19:41: 15 02-19 00:00 :00 No Take by mouth. [facility] dicyclomine (BENTYL) injection 20 mg 02-19 19:15: 02-19 19:04 :00 No 20mg 20 mg, Intramuscu lar, ONCE, 1 dose, 02/19/21 at 1415, Routine [facility] proMETHazin e (PHENERGAN) 25 mg in NaCl 0.9% (NS) 50 mL piggyback 02-19 19:15: 00 02-19 19:03 :00 No 25mg 25 mg, IV Piggyback, ONCE, 1 dose, 02/19/21 at 1415, 50 mL [facility] morpHINE injection 4 mg 02-19 17:15: 02-19 17:05 :00 No 4mg 4 mg, Slow IV Push, ONCE, 1 dose, 02/19/21 at 1215, STAT [facility] NaCl 0.9% (NS) bolus infusion 1,000 mL 02-19 17:15: 00 02-19 19:04 :00 No 1000mL at 999 mL/hr, 1,000 mL, IV Infusion, ONCE, 1 dose, 02/19/21 at 1215, STAT [facility] ondansetron (ZOFRAN (PF)) injection 4 mg 02-19 17:00: 00 02-19 15:59 :00 No 4mg 4 mg, Slow IV Push, ONCE, 1 dose, Thu02/19/21 at 1200, MICHAEL [facility] iopamidol (ISOVUE 370-500 mL) injection 100 mL 02-19 16:35: 00 02-19 16:45 :00 No [id number] 100mL 100 mL, Intravenou s, ONCE, 1 dose, Thu02/19/21 at 1145, Routine [facility] levetiracet am (KEPPRA ORAL) 02-19 14:45: 33 Yes Take by mouth. [facility] dicyclomine 20 mg tablet 02-19 00:00: 00 01-09 00:00 :00 No [id number] 20mg Take 1 tablet by mouth 4 (four) times daily as needed for Abdominal pain. [facility] proMETHazin e 25 mg tablet 02-19 00:00: 00 11-27 00:00 :00 No [id number] 25mg Take 1 tablet by mouth every 6 (six) hours as needed for Nausea and Vomiting (N/V). [facility] ZONISAMIDE 100 mg capsule 11-15 00:00: 00 Yes TAKE 1 CAPSULE BY MOUTH TWICE A DAY [facility] ondansetron (ZOFRAN) 4 mg tablet 02-09 20:05: 01 Yes 4mg Take 4 mg by mouth every 8 (eight) hours as needed. [facility] pantoprazol e (PROTONIX) 40 mg EC tablet 02-09 20:05: 01 Yes 40mg Take 40 mg by mouth daily. [facility] LISINOPRIL- HYDROCHLORO THIAZIDE ORAL 02-09 20:05: 01 Yes Take by mouth. [facility] lisinopril- hydrochloro thiazide 20-12.5 mg per tablet 02-09 20:03: 30 Yes 1{tbl} Take 1 tablet by mouth daily. [facility] omega-3 fatty acids-vitam in E (FISH OIL) 1,000 mg capsule 02-09 19:59: 52 Yes 1g Take 1 g by mouth daily. [facility] MULTIVITAMI N ORAL 02-09 19:58: 14 Yes 1{tbl} Take 1 Tab by mouth daily. [facility] loratadine (CLARITIN LIQUI-GEL) 10 mg capsule 02-09 19:58: 14 Yes Take by mouth daily. [facility] ondansetron (ZOFRAN) 4 mg tablet 02-09 15:05: 01 Yes 4mg Take 4 mg by mouth every 8 (eight) hours as needed. [facility] pantoprazol e (PROTONIX) 40 mg EC tablet 02-09 15:05: 01 Yes 40mg Take 40 mg by mouth daily. [facility] lisinopril- hydrochloro thiazide 20-12.5 mg per tablet 02-09 15:03: 30 Yes 1{tbl} Take 1 tablet by mouth daily. [facility] omega-3 fatty acids-vitam in E (FISH OIL) 1,000 mg capsule 02-09 14:59: 52 Yes 1g Take 1 g by mouth daily. [facility] MULTIVITAMI N ORAL 02-09 14:58: 14 Yes 1{tbl} Take 1 Tab by mouth daily. [facility] loratadine (CLARITIN LIQUI-GEL) 10 mg capsule 02-09 14:58: 14 Yes Take by mouth daily. [facility] proMETHazin e (PHENERGAN) 25 mg tablet 11-20 00:00: 00 Yes 25mg Take 1 tablet by mouth every 6 (six) hours as needed for Nausea and Vomiting (N/V). [facility] carvedilol (COREG) 6.25 mg tablet 09-19 00:00: 00 12-02 00:00 :00 No 6.25mg Take 1 Tab by mouth 2 (two) times daily with meals. [facility] amLODIPine (NORVASC) 10 mg tablet 09-19 00:00: 00 12-02 00:00 :00 No 10mg Take 1 Tab by mouth daily. [facility] lisinopril (PRINIVIL,Z ESTRIL) 40 mg tablet 09-19 00:00: 00 11-27 00:00 :00 No 40mg Take 1 Tab by mouth daily. [facility] Immunizations Ordered Immunization Name Filled Immunization Name Date Status Comments Source SARS-COV-2 COVID-19 PFIZER BA-SUCROSE VACCINE (ROSE TOP) 2022-02-19 00:00:00 Completed [facility] SARS-COV-2 COVID-19 PFIZER BA-SUCROSE VACCINE (ROSE TOP) 2022-02-19 00:00:00 Completed [facility] SARS-COV-2 COVID-19 PFIZER BA-SUCROSE VACCINE (ROSE TOP) 2022-02-19 00:00:00 Completed [facility] SARS-COV-2 COVID-19 PFIZER BA-SUCROSE VACCINE (ROSE TOP) 2022-02-19 00:00:00 Completed [facility] SARS-COV-2 COVID-19 PFIZER BA-SUCROSE VACCINE (ROSE TOP) 2022-02-19 00:00:00 Completed [facility] SARS-COV-2 COVID-19 PFIZER BA-SUCROSE VACCINE (ROSE TOP) 2022-02-19 00:00:00 Completed [facility] SARS-COV-2 COVID-19 PFIZER BA-SUCROSE VACCINE (ROSE TOP) 2022-02-19 00:00:00 Completed [facility] SARS-COV-2 COVID-19 PFIZER BA-SUCROSE VACCINE (ROSE TOP) 2022-02-19 00:00:00 Completed [facility] SARS-COV-2 COVID-19 PFIZER BA-SUCROSE VACCINE (ROSE TOP) 2022-02-19 00:00:00 Completed [facility] SARS-COV-2 COVID-19 PFIZER VACCINE 2021-05-24 00:00:00 Completed [facility] SARS-COV-2 COVID-19 PFIZER VACCINE 2021-05-24 00:00:00 Completed [facility] SARS-COV-2 COVID-19 PFIZER VACCINE 2021-05-24 00:00:00 Completed [facility] SARS-COV-2 COVID-19 PFIZER VACCINE 2021-05-24 00:00:00 Completed [facility] SARS-COV-2 COVID-19 PFIZER VACCINE 2021-05-24 00:00:00 Completed [facility] SARS-COV-2 COVID-19 PFIZER VACCINE 2021-05-24 00:00:00 Completed [facility] SARS-COV-2 COVID-19 PFIZER VACCINE 2021-05-24 00:00:00 Completed [facility] SARS-COV-2 COVID-19 PFIZER VACCINE 2021-05-24 00:00:00 Completed [facility] SARS-COV-2 COVID-19 PFIZER VACCINE 2021-05-24 00:00:00 Completed [facility] SARS-COV-2 COVID-19 PFIZER VACCINE 2021-05-24 00:00:00 Completed [facility] SARS-COV-2 COVID-19 PFIZER VACCINE 2021-05-24 00:00:00 Completed [facility] SARS-COV-2 COVID-19 PFIZER VACCINE 2021-05-03 00:00:00 Completed [facility] SARS-COV-2 COVID-19 PFIZER VACCINE 2021-05-03 00:00:00 Completed [facility] SARS-COV-2 COVID-19 PFIZER VACCINE 2021-05-03 00:00:00 Completed [facility] SARS-COV-2 COVID-19 PFIZER VACCINE 2021-05-03 00:00:00 Completed [facility] SARS-COV-2 COVID-19 PFIZER VACCINE 2021-05-03 00:00:00 Completed [facility] SARS-COV-2 COVID-19 PFIZER VACCINE 2021-05-03 00:00:00 Completed [facility] SARS-COV-2 COVID-19 PFIZER VACCINE 2021-05-03 00:00:00 Completed [facility] SARS-COV-2 COVID-19 PFIZER VACCINE 2021-05-03 00:00:00 Completed [facility] SARS-COV-2 COVID-19 PFIZER VACCINE 2021-05-03 00:00:00 Completed [facility] SARS-COV-2 COVID-19 PFIZER VACCINE 2021-05-03 00:00:00 Completed [facility] SARS-COV-2 COVID-19 PFIZER VACCINE 2021-05-03 00:00:00 Completed [facility] SARS-COV-2 COVID-19 PFIZER VACCINE 2021-05-03 00:00:00 Completed [facility] SARS-COV-2 COVID-19 PFIZER VACCINE Unknown Completed [facility] SARS-COV-2 COVID-19 PFIZER BA-SUCROSE VACCINE (ROSE TOP) Unknown Completed [facility] SARS-COV-2 COVID-19 PFIZER BA-SUCROSE VACCINE (ROSE TOP) Unknown [facility] PFIZER VACCINE Unknown Completed [facility] SARS-COV-2 COVID-19 PFIZER VACCINE Unknown Completed [facility] SARS-COV-2 COVID-19 PFIZER BA-SUCROSE VACCINE (ROSE TOP) Unknown Completed [facility] SARS-COV-2 COVID-19 PFIZER VACCINE Unknown Completed [facility] SARS-COV-2 COVID-19 PFIZER BA-SUCROSE VACCINE (ROSE TOP) Unknown [facility] COVID-19 PFIZER VACCINE Unknown Completed [facility] SARS-COV-2 COVID-19 PFIZER BA-SUCROSE VACCINE (ROSE TOP) Unknown [facility] COVID-19 PFIZER VACCINE Unknown Completed [facility] SARS-COV-2 COVID-19 PFIZER BA-SUCROSE VACCINE (ROSE TOP) Unknown Completed [facility] SARS-COV-2 COVID-19 PFIZER VACCINE Unknown Completed [facility] SARS-COV-2 COVID-19 PFIZER BA-SUCROSE VACCINE (ROSE TOP) Unknown [facility] COVID-19 PFIZER VACCINE Unknown Completed [facility] SARS-COV-2 COVID-19 PFIZER BA-SUCROSE VACCINE (ROSE TOP) Unknown Completed [facility] SARS-COV-2 COVID-19 PFIZER VACCINE Unknown Completed [facility] SARS-COV-2 COVID-19 PFIZER BA-SUCROSE VACCINE (ROSE TOP) Unknown [facility]2 COVID-19 PFIZER VACCINE Unknown Completed [facility] SARS-COV-2 COVID-19 PFIZER BA-SUCROSE VACCINE (ROSE TOP) Unknown Completed [facility] SARS-COV-2 COVID-19 PFIZER VACCINE Unknown Completed [facility] SARS-COV-2 COVID-19 PFIZER BA-SUCROSE VACCINE (ROSE TOP) Unknown Completed [facility] SARS-COV-2 COVID-19 PFIZER VACCINE Unknown Completed [facility] SARS-COV-2 COVID-19 PFIZER BA-SUCROSE VACCINE (ROSE TOP) Unknown Completed [facility] SARS-COV-2 COVID-19 PFIZER VACCINE Unknown Completed [facility] SARS-COV-2 COVID-19 PFIZER BA-SUCROSE VACCINE (ROSE TOP) Unknown Completed [facility] SARS-COV-2 COVID-19 PFIZER VACCINE Unknown Completed [facility] SARS-COV-2 COVID-19 PFIZER BA-SUCROSE VACCINE (ROSE TOP) Unknown Completed [facility] Vital Signs Vital Name Observation Time Observation Value Comments S ource Systolic blood pressure 2024-04-03 05:10:00 111 mm[Hg] [facility] Diastolic blood pressure 2024-04-03 05:10:00 65 mm[Hg] [facility] Heart rate 2024-04-03 05:10:00 70 /min [facility] Respiratory rate 2024-04-03 05:10:00 23 /min [facility] Oxygen saturation in Arterial blood by Pulse oximetry 2024-04-03 05:10:00 97 /min [facility] Body temperature 2024-04-03 01:49:00 37.33 Radha [facility] Body height 2024-04-03 01:49:[address] [facility] Body weight 2024-04-03 01:49:[address] [facility] BMI 2024-04-03 01:49:00 36.58 kg/m2 [facility] Systolic blood pressure 2024-01-13 04:50:00 103 mm[Hg] [facility] Diastolic blood pressure 2024-01-13 04:50:00 72 mm[Hg] [facility] Heart rate 2024-01-13 04:50:00 85 /min [facility] Body temperature 2024-01-13 04:50:00 36.67 Radha [facility] Oxygen saturation in Arterial blood by Pulse oximetry 2024-01-13 04:50:00 99 /min [facility] Respiratory rate 2024-01-13 04:40:00 19 /min [facility] Body height 2024-01-13 03:06:[address] [facility] Body weight 2024-01-13 03:06:[address] [facility] BMI 2024-01-13 03:06:00 31.71 kg/m2 [facility] Systolic blood pressure 2024-01-10 20:00:00 95 mm[Hg] [facility] Diastolic blood pressure 2024-01-10 20:00:00 71 mm[Hg] [facility] Heart rate 2024-01-10 20:00:00 73 /min [facility] Body temperature 2024-01-10 20:00:00 36.83 Radha [facility] Respiratory rate 2024-01-10 20:00:00 23 /min [facility] Oxygen saturation in Arterial blood by Pulse oximetry 2024-01-10 20:00:00 94 /min [facility] Body weight 2024-01-10 09:00:[address] [facility] BMI 2024-01-10 09:00:00 32.85 kg/m2 [facility] Body height 2024-01-09 21:10:[address] [facility] Heart rate 2023-12-15 12:35:00 73 /min [facility] Respiratory rate 2023-12-15 12:35:00 18 /min [facility] Oxygen saturation in Arterial blood by Pulse oximetry 2023-12-15 12:35:00 95 /min [facility] Systolic blood pressure 2023-12-15 12:20:00 105 mm[Hg] [facility] Diastolic blood pressure 2023-12-15 12:20:00 64 mm[Hg] [facility] Body temperature 2023-12-15 12:20:00 36.11 Radha [facility] Body weight 2023-12-15 08:12:[address] [facility] BMI 2023-12-15 08:12:00 30.65 kg/m2 [facility] Body height 2023-12-15 02:10:[address] [facility] Systolic blood pressure 2023-12-03 23:00:00 106 mm[Hg] [facility] Diastolic blood pressure 2023-12-03 23:00:00 75 mm[Hg] [facility] Heart rate 2023-12-03 23:00:00 108 /min [facility] Body temperature 2023-12-03 23:00:00 36.61 Radha [facility] Respiratory rate 2023-12-03 23:00:00 17 /min [facility] Oxygen saturation in Arterial blood by Pulse oximetry 2023-12-03 23:00:00 96 /min [facility] Body height 2023-12-03 19:39:[address] [facility] Body weight 2023-12-03 19:39:[address] [facility] BMI 2023-12-03 19:39:00 35.43 kg/m2 [facility] Systolic blood pressure 2023-11-28 16:39:00 91 mm[Hg] [facility] Diastolic blood pressure 2023-11-28 16:39:00 65 mm[Hg] [facility] Heart rate 2023-11-28 16:39:00 105 /min [facility] Body temperature 2023-11-28 16:39:00 36.28 Radha [facility] Respiratory rate 2023-11-28 16:39:00 20 /min [facility] Oxygen saturation in Arterial blood by Pulse oximetry 2023-11-28 16:39:00 97 /min [facility] Body weight 2023-11-28 01:00:[address] [facility] BMI 2023-11-28 01:00:00 32.81 kg/m2 [facility] Body height 2023-11-22 07:10:[address] [facility] Systolic blood pressure 2023-11-23 19:43:25 123 mm[Hg] [facility] Diastolic blood pressure 2023-11-23 19:43:25 79 mm[Hg] [facility] Respiratory rate 2023-11-23 19:43:25 17 /min [facility] Oxygen saturation in Arterial blood by Pulse oximetry 2023-11-23 19:43:25 97 /min [facility] Heart rate 2023-11-23 19:20:46 122 /min [facility] Body temperature 2023-11-23 15:00:00 36.22 Radha [facility] Body height 2023-11-22 07:10:[address] [facility] Body weight 2023-11-22 07:10:[address] [facility] BMI 2023-11-22 07:10:00 35.16 kg/m2 [facility] Systolic blood pressure 2023-08-12 21:00:00 130 mm[Hg] [facility] Diastolic blood pressure 2023-08-12 21:00:00 85 mm[Hg] [facility] Heart rate 2023-08-12 21:00:00 106 /min [facility] Respiratory rate 2023-08-12 21:00:00 14 /min [facility] Oxygen saturation in Arterial blood by Pulse oximetry 2023-08-12 21:00:00 95 /min [facility] Body temperature 2023-08-12 20:34:54 37.22 Radha [facility] Body height 2023-08-12 19:47:[address] [...] Systolic blood pressure 2022-12-11 20:00:00 142 mm[Hg] [facility] Diastolic blood pressure 2022-12-11 20:00:00 90 mm[Hg] [facility] Respiratory rate 2022-12-11 20:00:00 24 /min [facility] Heart rate 2022-12-11 18:00:00 101 /min [facility] Oxygen saturation in Arterial blood by Pulse oximetry 2022-12-11 18:00:00 93 /min [facility] BMI 2022-12-11 13:55:00 35.43 kg/m2 [facility] Body temperature 2022-12-11 13:55:00 37.22 Radha [facility] Body weight 2022-12-11 13:55:[address] [facility] Systolic blood pressure 2022-11-18 05:34:00 152 mm[Hg] [facility] Diastolic blood pressure 2022-11-18 05:34:00 98 mm[Hg] [facility] Heart rate 2022-11-18 05:34:00 88 /min [facility] Respiratory rate 2022-11-18 05:34:00 18 /min [facility] Oxygen saturation in Arterial blood by Pulse oximetry 2022-11-18 05:34:00 97 /min [facility] Body temperature 2022-11-17 22:28:00 37.06 Radha [facility] Body height 2022-11-17 22:28:[address] [facility] Body weight 2022-11-17 22:28:[address] [facility] BMI 2022-11-17 22:28:00 38.97 kg/m2 [facility] Heart rate 2022-08-02 02:02:00 108 /min [facility] Respiratory rate 2022-08-02 02:02:00 28 /min [facility] Oxygen saturation in Arterial blood by Pulse oximetry 2022-08-02 02:02:00 97 /min [facility] Body temperature 2022-08-02 01:00:00 36.44 Radha [facility] Systolic blood pressure 2022-08-01 23:29:00 145 mm[Hg] [facility] Diastolic blood pressure 2022-08-01 23:29:00 103 mm[Hg] [facility] Body weight 2022-08-01 09:16:[address] [facility] BMI 2022-08-01 09:16:00 38.26 kg/m2 [facility] Body height 2022-07-31 21:54:[address] [facility] Systolic blood pressure 2022-05-08 16:40:00 146 mm[Hg] [facility] Diastolic blood pressure 2022-05-08 16:40:00 96 mm[Hg] [facility] Heart rate 2022-05-08 16:40:00 112 /min [facility] Body temperature 2022-05-08 16:40:00 36.78 Radha [facility] Respiratory rate 2022-05-08 16:40:00 18 /min [facility] Oxygen saturation in Arterial blood by Pulse oximetry 2022-05-08 16:40:00 94 /min [facility] Body height 2022-05-05 23:44:[address] [facility] Body weight 2022-05-05 23:37:[address] [facility] BMI 2022-05-05 23:37:00 31.89 kg/m2 [facility] Systolic blood pressure 2022-04-15 18:52:00 104 mm[Hg] [facility] Diastolic blood pressure 2022-04-15 18:52:00 82 mm[Hg] [facility] Heart rate 2022-04-15 18:52:00 114 /min [facility] Oxygen saturation in Arterial blood by Pulse oximetry 2022-04-15 18:52:00 98 /min [facility] Body temperature 2022-04-15 16:14:00 36.28 Radha [facility] Respiratory rate 2022-04-15 16:14:00 17 /min [facility] Body height 2022-04-13 21:08:[address] [facility] Body weight 2022-04-13 21:08:[address] [facility] BMI 2022-04-13 21:08:00 35.61 kg/m2 [facility] Systolic blood pressure 2021-11-23 21:30:00 132 mm[Hg] [facility] Diastolic blood pressure 2021-11-23 21:30:00 76 mm[Hg] [facility] Heart rate 2021-11-23 21:30:00 95 /min [facility] Respiratory rate 2021-11-23 21:30:00 13 /min [facility] Oxygen saturation in Arterial blood by Pulse oximetry 2021-11-23 21:30:00 97 /min [facility] Body temperature 2021-11-23 20:15:00 37.56 Radha [facility] Systolic blood pressure 2021-03-17 03:00:00 117 mm[Hg] [facility] Diastolic blood pressure 2021-03-17 03:00:00 76 mm[Hg] [facility] Heart rate 2021-03-17 03:00:00 104 /min [facility] Respiratory rate 2021-03-17 03:00:00 28 /min [facility] Oxygen saturation in Arterial blood by Pulse oximetry 2021-03-17 03:00:00 96 /min [facility] Body temperature 2021-03-17 00:39:00 37.11 Radha [facility] Body height 2021-03-17 00:39:[address] [facility] Body weight 2021-03-17 00:39:[address] [facility] BMI 2021-03-17 00:39:00 23.03 kg/m2 [facility] Systolic blood pressure 2021-03-15 00:14:00 149 mm[Hg] [facility] Diastolic blood pressure 2021-03-15 00:14:00 78 mm[Hg] [facility] Heart rate 2021-03-15 00:14:00 100 /min [facility] Body temperature 2021-03-15 00:14:00 37.33 Radha [facility] Respiratory rate 2021-03-15 00:14:00 24 /min [facility] Body height 2021-03-15 00:14:[address] [facility] Body weight 2021-03-15 00:14:[address] [facility] BMI 2021-03-15 00:14:00 23.03 kg/m2 [facility] Oxygen saturation in Arterial blood by Pulse oximetry 2021-03-15 00:14:00 98 /min [facility] Systolic blood pressure 2021-02-19 18:00:00 131 mm[Hg] [facility] Diastolic blood pressure 2021-02-19 18:00:00 80 mm[Hg] [facility] Heart rate 2021-02-19 18:00:00 83 /min [facility] Respiratory rate 2021-02-19 18:00:00 18 /min [facility] Oxygen saturation in Arterial blood by Pulse oximetry 2021-02-19 18:00:00 100 /min [facility] Body temperature 2021-02-19 15:47:00 37 Radha [facility] Body height 2021-02-19 15:47:[address] [facility] Body weight 2021-02-19 15:47:[address] [facility] BMI 2021-02-19 15:47:00 23.03 kg/m2 [facility] Heart rate 2023-09-08 08:54:00 118 /min [facility] Respiratory rate 2023-09-08 08:54:00 21 /min [facility] Oxygen saturation in Arterial blood by Pulse oximetry 2023-09-08 08:54:00 100 /min [facility] Systolic blood pressure 2023-09-08 08:32:00 110 mm[Hg] [facility] Diastolic blood pressure 2023-09-08 08:32:00 77 mm[Hg] [facility] Body temperature 2023-09-08 08:32:00 36.06 Radha [facility] Body height 2023-09-04 00:58:00 157.5 cm [facility] Body weight 2023-09-04 00:58:00 80 kg [facility] BMI 2023-09-04 00:58:00 32.26 kg/m2 [facility] Heart rate 2023-06-16 17:00:00 108 /min [facility] Systolic blood pressure 2023-06-16 15:31:00 101 mm[Hg] [facility] Diastolic blood pressure 2023-06-16 15:31:00 81 mm[Hg] [facility] Body temperature 2023-06-16 15:31:00 36.61 Radha [facility] Respiratory rate 2023-06-16 15:31:00 18 /min [facility] Oxygen saturation in Arterial blood by Pulse oximetry 2023-06-16 15:31:00 94 /min [facility] Body weight 2023-06-16 05:26:00 86.047 kg [facility] BMI 2023-06-16 05:26:00 33.60 kg/m2 [facility] Body height 2023-06-13 04:00:00 160 cm [facility] Systolic blood pressure 2023-06-04 13:02:00 93 mm[Hg] [facility] Diastolic blood pressure 2023-06-04 13:02:00 57 mm[Hg] [facility] Heart rate 2023-06-04 13:02:00 101 /min [facility] Respiratory rate 2023-06-04 13:02:00 22 /min [facility] Oxygen saturation in Arterial blood by Pulse oximetry 2023-06-04 13:02:00 95 /min room air [facility] Body temperature 2023-06-04 11:46:00 35.28 Radha [facility] Systolic blood pressure 2023-05-28 16:00:00 154 mm[Hg] [facility] Diastolic blood pressure 2023-05-28 16:00:00 82 mm[Hg] [facility] Heart rate 2023-05-28 16:00:00 89 /min [facility] Body temperature 2023-05-28 16:00:00 36.67 Radha [facility] Respiratory rate 2023-05-28 16:00:00 16 /min [facility] Oxygen saturation in Arterial blood by Pulse oximetry 2023-05-28 16:00:00 97 /min [facility] Body height 2023-05-28 07:00:00 157.5 cm [facility] Body weight 2023-05-28 07:00:00 87.544 kg [facility] BMI 2023-05-28 07:00:00 35.30 kg/m2 [facility] Body height 2023-05-26 09:12:00 157.5 cm [facility] Body weight 2023-05-26 09:12:00 87.091 kg [facility] BMI 2023-05-26 09:12:00 35.12 kg/m2 [facility] Respiratory rate 2023-04-02 16:35:00 18 /min [facility] Oxygen saturation in Arterial blood by Pulse oximetry 2023-04-02 16:35:00 98 /min [facility] Systolic blood pressure 2023-04-02 12:00:00 147 mm[Hg] [facility] Diastolic blood pressure 2023-04-02 12:00:00 97 mm[Hg] [facility] Heart rate 2023-04-02 12:00:00 106 /min [facility] Body temperature 2023-04-02 12:00:00 36.28 Radha [facility] Body height 2023-03-30 02:14:00 157.5 cm [facility] Body weight 2023-03-30 02:14:00 92.08 kg [facility] BMI 2023-03-30 02:14:00 37.13 kg/m2 [facility] Respiratory rate 2022-08-03 14:40:00 18 /min [facility] Systolic blood pressure 2022-08-03 12:13:00 112 mm[Hg] [facility] Diastolic blood pressure 2022-08-03 12:13:00 77 mm[Hg] [facility] Heart rate 2022-08-03 12:13:00 115 /min [facility] Oxygen saturation in Arterial blood by Pulse oximetry 2022-08-03 12:13:00 93 /min [facility] Body temperature 2022-08-03 12:00:00 36.83 Radha [facility] Body height 2022-08-02 21:52:00 160.2 cm [facility] Body weight 2022-08-02 21:52:00 95 kg [facility] BMI 2022-08-02 21:52:00 37.02 kg/m2 [facility] BP Systolic 2022-07-24 13:31:00 136 mm[Hg] [...] Source LACTIC ACID WHOLE BLOOD 2024-04-03 01:59:00 Chrissy Mohr [facility] BASIC METABOLIC PANEL (NA, K , CL, CO2, GLUCOSE, BUN, CREATININE, CA) 2024-04-03 01:58:00 Chrissy Mohr [facility] CBC WITH DIFF 2024-04-03 01:58:00 Tammy Chrissy [facility] N-TERMINAL PRO-BNP 2024-04-03 01:58:00 Tammy Chrissy [facility] EKG-12 LEAD 2024-01-13 04:42:14 Radha Wyatt [facility] TROPONIN I 2024-01-13 03:20:00 Radha Wyatt [facility] COMP. METABOLIC PANEL ([id number]) 2024-01-13 03:20:00 Radha Wyatt [facility] CBC WITH DIFF 2024-01-13 03:20:00 Radha Wyatt [facility] TRANSTHORACIC ECHO (TTE) LIMITED W/ DOPPLER, COLOR AND CONTRAST 2024-01-10 13:07:00 Darrick Altamiraon [facility] MAGNESIUM 2024-01-10 09:16:00 Darrick Altamirano [facility] TROPONIN I 2024-01-10 09:16:00 Darrick Altamirano [facility] BASIC METABOLIC PANEL (NA, K , CL, CO2, GLUCOSE, BUN, CREATININE, CA) 2024-01-10 09:16:00 Darrick Altamirano [facility] LIPID PANEL (79331)(TOTAL CHOLESTEROL, TRIGLYCERIDES, HDL) 2024-01-10 09:16:00 Darrick Altamirano [facility] CBC WITH DIFF 2024-01-10 09:16:00 Darrick Altamirano [facility] PROTHROMBIN TIME / INR 2024-01-10 09:16:00 Darrick Altamirano [facility] ACTIVATED PARTIAL THRMPLAS DAVID 2024-01-10 09:16:00 Darrick Altamirano [facility] N-TERMINAL PRO-BNP 2024-01-10 09:16:00 Darrick Altamirano [facility] PHOSPHORUS 2024-01-10 04:58:00 Darrick Altamirano [facility] BLOOD CULTURE SCREEN 2024-01-10 02:39:00 Alfonso Alvarado [facility] BLOOD CULTURE SCREEN 2024-01-10 02:20:00 Alfonso Alvarado [facility] LACTIC ACID WHOLE BLOOD 2024-01-10 01:52:00 Alfonso Alvarado [facility] CT CHEST PULMONARY ANGIOGRAM 2024-01-09 23:59:01 Abundio [facility] XR CHEST 1 VW 2024-01-09 21:49:00 Susannasan [facility] TROPONIN I 2024-01-09 21:39:00 Susannasan [facility] COMP. METABOLIC PANEL ([id number]) 2024-01-09 21:39:00 Abundio [facility] CBC WITH DIFF 2024-01-09 21:39[facility] D-DIMER 2024-01-09 21:39:00 Susannasan [facility] N-TERMINAL PRO-BNP 2024-01-09 21:39:00 Susannasan [facility] HB ECG ROUTINE & RHYTHM STRIP 2024-01-09 21:13:02 Abundio [facility] POCT GLUCOSE (AUTOMATED) 2023-12-15 12:43:[facility] 2023-12-15 10:26:00 Reema [facility] TROPONIN I 2023-12-15 10:26:00 Reema [facility] BASIC METABOLIC PANEL (NA, K , CL, CO2, GLUCOSE, BUN, CREATININE, CA) 2023-12-15 10:26:00 Reema [facility] CBC WITH DIFF 2023-12-15 10:26:00 [facility] 2023-12-15 10:26:00 Reema [facility] TROPONIN I 2023-12-15 03:21:00 Reema [facility] FREE T4 2023-12-15 03:21:00 Reema [facility] DIGOXIN 2023-12-15 03:21:00 Dayanna Huff [facility] POCT GLUCOSE (AUTOMATED) 2023-12-15 00:56:00 Reema [facility] TROPONIN I 2023-12-14 21:05:00 Singer [facility] THYROID STIMULATING HORMONE 2023-12-14 21:05:00 Reema [facility] FREE T3 2023-12-14 21:05:00 Reema [facility] XR CHEST 1 VW 2023-12-14 19:25:00 Singer [facility] TROPONIN I 2023-12-14 19:19:00 Singer [facility] COMP. METABOLIC PANEL ([id number]) 2023-12-14 19:19:00 Singer [facility] CBC WITH DIFF 2023-12-14 19:19[facility]14 [facility] 2023-12-14 19:19:00 Bryan [facility] EKG-12 LEAD 2023-12-14 18:38:57 Reema [facility] POCT GLUCOSE (AUTOMATED) 2023-12-03 21:23:00 Connor Donaldson [facility] BASIC METABOLIC PANEL (NA, K , CL, CO2, GLUCOSE, BUN, CREATININE, CA) 2023-12-03 17:58:00 Mukesh Tabor [facility] POCT GLUCOSE (AUTOMATED) 2023-12-03 16:51:00 Connor Donaldson [facility] POCT GLUCOSE (AUTOMATED) 2023-12-03 13:00:00 Connor Donaldson [facility] MAGNESIUM 2023-12-03 09:21:00 Ginny Mariaelena [facility] HEPATIC FUNCTION PANEL ([id number]) (ALB,T.PRO,BILI T,BU/BC,ALT,AST,ALK PHOS) 2023-12-03 09:21:00 Ginny Mariaelena [facility] BASIC METABOLIC PANEL (NA, K , CL, CO2, GLUCOSE, BUN, CREATININE, CA) 2023-12-03 09:21:00 Ginny Mariaelena [facility] AC PANEL 21 + LACTIC ACID 2023-12-03 01:45:00 Ginny Mariaelena [facility] MRSA / MSSA SCREEN BY PCR, RED 2023-12-03 01:45:00 Ginny [facility] CT CHEST PULMONARY ANGIOGRAM 2023-12-02 19:32:14 Connor Donaldson [facility] XR CHEST 1 VW 2023-12-02 19:04:00 Connor Donaldson [facility] BLOOD CULTURE SCREEN 2023-12-02 18:53:00 Connor Donaldson [facility] TROPONIN I 2023-12-02 18:53:00 Connor Donaldson [facility] COMP. METABOLIC PANEL ([id number]) 2023-12-02 18:53:00 Connor Donaldson [facility] CBC WITH DIFF 2023-12-02 18:53:00 Connor Donaldson [facility] RAPID INFLUENZA A/B 2023-12-02 18:53:00 Connor Donaldson [facility] N-TERMINAL PRO-BNP 2023-12-02 18:53:00 Connor Donaldson [facility] COVID-19 (ID NOW RAPID TESTING) 2023-12-02 18:53:00 Connor Donaldson [facility] BLOOD CULTURE SCREEN 2023-12-02 18:49:00 Connor Donaldson [facility] AC ABG + LACTIC ACID 2023-12-02 18:26:00 Connor Donaldson [facility] HB ECG ROUTINE & RHYTHM STRIP 2023-12-02 18:06:10 Connor Donaldson [facility] POCT GLUCOSE (AUTOMATED) 2023-11-28 16:40:00 Cr Altamirano [facility] PHOSPHORUS 2023-11-28 09:22:00 Leander [facility] MAGNESIUM 2023-11-28 09:22:00 Leander [facility] COMP. METABOLIC PANEL ([id number]) 2023-11-28 09:22:00 Leander [facility] CBC WITH DIFF 2023-11-28 09:22:00 Leander [facility] N-TERMINAL PRO-BNP 2023-11-28 09:22:00 Torrey Baez [facility] POCT GLUCOSE (AUTOMATED) 2023-11-28 01:31:00 Lorenzo Ventura [facility] POCT GLUCOSE (AUTOMATED) 2023-11-27 21:45:00 Lorenzo Hemrosalie [facility] POCT GLUCOSE (AUTOMATED) 2023-11-27 16:30:00 Lorenzo Hemrosalie [facility] POCT GLUCOSE (AUTOMATED) 2023-11-27 12:39:00 [facility] LACTIC ACID WHOLE BLOOD 2023-11-27 06:35:00 Leander [facility] MAGNESIUM 2023-11-27 06:34:00 Leander [facility] COMP. METABOLIC PANEL ([id number]) 2023-11-27 06:34:00 Leander [facility] URINE DRUG (IMMUNOASSAY) - COMPREHENSIVE DRUG SCREEN 2023-11-27 03:59:00 Leander [facility] POCT GLUCOSE (AUTOMATED) 2023-11-27 02:25:00 Lorenzo Ventura [facility] CT HEAD WO CONTRAST 2023-11-26 21:56:31 Leander [facility] MAGNESIUM 2023-11-26 21:32:00 Leander [facility] COMP. METABOLIC PANEL ([id number]) 2023-11-26 21:32:00 Leander [facility] POCT GLUCOSE (AUTOMATED) 2023-11-26 21:11:00 Lorenzo Ventura [facility] VALPROIC ACID, FREE 2023-11-26 18:07:00 Leander [facility] KEPPRA (LEVETIRACETAM) 2023-11-26 18:07:00 Tabor, [facility] LACTIC ACID WHOLE BLOOD 2023-11-26 18:07:00 Tabor, [facility] POCT GLUCOSE (AUTOMATED) 2023-11-26 17:05:00 Lorenzo Ventura [facility] MAGNESIUM 2023-11-26 13:28:00 Raghu Castellanos [facility] VITAMIN B12, LEVEL 2023-11-26 13:28:00 Tabor, [facility] FOLATE 2023-11-26 13:28:00 Leander [facility] COMP. METABOLIC PANEL ([id number]) 2023-11-26 13:28:00 Raghu Castellanos [facility] CBC WITH DIFF 2023-11-26 13:28:00 Tabor, [facility] LACTIC ACID WHOLE BLOOD 2023-11-26 09:52:00 Robinson Shin [facility] POCT GLUCOSE (AUTOMATED) 2023-11-26 02:13:00 Lorenzo Ventura [facility] LACTIC ACID WHOLE BLOOD 2023-11-26 00:53:00 Raghu Castellanos [facility] ELECTROENCEPHALOGRAM 2023-11-26 00:00:00 Leander [facility] POCT GLUCOSE (AUTOMATED) 2023-11-25 20:59:00 Lorenzo Ventura [facility] LACTIC ACID WHOLE BLOOD 2023-11-25 20:56:00 Raghu Castellanos [facility] MAGNESIUM 2023-11-25 20:55:00 Raghu Castellanos [facility] COMP. METABOLIC PANEL ([id number]) 2023-11-25 20:55:00 Raghu Castellanos [facility] POCT GLUCOSE (AUTOMATED) 2023-11-25 16:58:00 Lorenzo Ventura [facility] POCT GLUCOSE (AUTOMATED) 2023-11-25 13:04:00 Lorenzo Ventura [facility] LACTIC ACID WHOLE BLOOD 2023-11-25 09:25:00 Jessica [facility] MAGNESIUM 2023-11-25 09:24:00 Raghu Castellanos [facility] COMP. METABOLIC PANEL ([id number]) 2023-11-25 09:24:00 Jessica [facility] CBC WITH DIFF 2023-11-25 09:24:00 Tabor [facility] MAGNESIUM 2023-11-25 04:52:00 Leander [facility] COMP. METABOLIC PANEL ([id number]) 2023-11-25 04:52:00 Leander [facility] LACTIC ACID WHOLE BLOOD 2023-11-25 04:52:00 Leander [facility] POCT GLUCOSE (AUTOMATED) 2023-11-25 03:00:00 Lorenzo Ventura [facility] TROPONIN I 2023-11-25 02:59:00 Jessica [facility] COMP. METABOLIC PANEL ([id number]) 2023-11-25 02:59:00 Jessica [facility] HIV 1/2 AG-AB WITH REFLEX 2023-11-25 02:59:00 Jessica [facility] CT ABDOMEN PELVIS W CONTRAST 2023-11-24 22:24:00 Leander [facility] POCT GLUCOSE (AUTOMATED) 2023-11-24 21:21:00 Lorenzo Ventura [facility] MAGNESIUM 2023-11-24 21:08:00 Tabor [facility] COMP. METABOLIC PANEL ([id number]) 2023-11-24 21:08:00 Tabor [facility] LACTIC ACID WHOLE BLOOD 2023-11-24 21:08:00 Jessica [facility] POCT GLUCOSE (AUTOMATED) 2023-11-24 17:43:00 Lorenzo Ventura [facility] POCT GLUCOSE (AUTOMATED) 2023-11-24 17:43:00 Al Hemrosalie [facility] MAGNESIUM 2023-11-24 15:47:00 Tabor, [facility] COMP. METABOLIC PANEL ([id number]) 2023-11-24 15:47:00 Tabor, [facility] ACTIVATED PARTIAL THRMPLAS DAVID 2023-11-24 15:47:00 Cris Mcnally [facility] LACTIC ACID WHOLE BLOOD 2023-11-24 15:47:00 Tabor, [facility] MAGNESIUM 2023-11-24 15:47:00 Tabor, [facility] COMP. METABOLIC PANEL ([id number]) 2023-11-24 15:47:00 Tabor, [facility] ACTIVATED PARTIAL THRMPLAS DAVID 2023-11-24 15:47:00 Cris Mcnally [facility] LACTIC ACID WHOLE BLOOD 2023-11-24 15:47:00 Tabor, [facility] POCT GLUCOSE (AUTOMATED) 2023-11-24 12:33:00 Al Hemrosalie [facility] POCT GLUCOSE (AUTOMATED) 2023-11-24 12:33:00 Lorenzo Hemrosalie [facility] MAGNESIUM 2023-11-24 10:03:00 Tabor, [facility] COMP. METABOLIC PANEL ([id number]) 2023-11-24 10:03:00 Tabor, [facility] CBC WITH DIFF 2023-11-24 10:03:00 Tabor, [facility] LACTIC ACID WITH 3 HOUR REFLEX 2023-11-24 10:03:00 Tabor, [facility] MAGNESIUM 2023-11-24 10:03:00 Tabor, [facility] COMP. METABOLIC PANEL ([id number]) 2023-11-24 10:03:00 Tabor, [facility] CBC WITH DIFF 2023-11-24 10:03:00 Tabor, [facility] LACTIC ACID WITH 3 HOUR REFLEX 2023-11-24 10:03:00 Tabor, [facility] ACTIVATED PARTIAL THRMPLAS DAVID 2023-11-24 06:13:00 [facility] THRMPLAS DAVID 2023-11-24 06:13:00 [facility] PO[facility] GLUCOSE (AUTOMATED) 2023-11-24 03:15:00 Lorenzo Ventura [facility] POCT GLUCOSE (AUTOMATED) 2023-11-24 03:15:00 Lorenzo Ventura [facility] ACTIVATED PARTIAL THRMPLAS DAVID 2023-11-23 23:09:00 Uli [facility] ACTIVATED PARTIAL THRMPLAS DAVID 2023-11-23 23:09:00 Uli [facility] POCT GLUCOSE (AUTOMATED) 2023-11-23 21:28:00 Lorenzo Ventura [facility] POCT GLUCOSE (AUTOMATED) 2023-11-23 21:28:00 Lorenzo Ventura [facility] CATH PROCEDURE LOG 2023-11-23 20:38:36 Lisandra [facility] CATH PROCEDURE LOG 2023-11-23 20:38:36 Lisandra [facility] CARDIAC CATHETERIZATION 2023-11-23 20:11:00 Lisandra [facility] CARDIAC CATHETERIZATION 2023-11-23 20:11:00 Lisandra [facility] CARDIAC CATHETERIZATION 2023-11-23 20:11:00 Lisandra [facility] CARDIAC CATHETERIZATION 2023-11-23 20:11:00 Lisandra [facility] POCT GLUCOSE (AUTOMATED) 2023-11-23 17:18:00 Lorenzo Ventura [facility] POCT GLUCOSE (AUTOMATED) 2023-11-23 17:18:00 Lorenzo Ventura [facility] POCT GLUCOSE (AUTOMATED) 2023-11-23 16:50:00 Lorenzo Hemrosalie [facility] POCT GLUCOSE (AUTOMATED) 2023-11-23 16:50:00 Lorenzo Ventura [facility] ACTIVATED PARTIAL THRMPLAS DAVID 2023-11-23 15:13:00 Uli [facility] ACTIVATED PARTIAL THRMPLAS DAVID 2023-11-23 15:13:00 [facility] WHOLE [facility]LO[facility] 2023-11-23 15:12:00 [facility] 2023-11-23 15:12:00 Ra Aleidawvalbin [facility] POCT GLUCOSE (AUTOMATED) 2023-11-23 12:47:00 Lorenzo Ventura [facility] POCT GLUCOSE (AUTOMATED) 2023-11-23 12:47:00 Lorenzo Hemrosalie [facility] MAGNESIUM 2023-11-23 07:52:00 Louise [facility] HEPATIC FUNCTION PANEL ([id number]) (ALB,T.PRO,BILI T,BU/BC,ALT,AST,ALK PHOS) 2023-11-23 07:52:00 Tabor [facility] BASIC METABOLIC PANEL (NA, K , CL, CO2, GLUCOSE, BUN, CREATININE, CA) 2023-11-23 07:52:00 Chrissieoot [facility] CBC WITH DIFF 2023-11-23 07:52:00 Louise [facility] ACTIVATED PARTIAL THRMPLAS DAVID 2023-11-23 07:52:00 [facility]li [facility] LACTIC ACID WHOLE BLOOD 2023-11-23 07:52:00 Robinson Shin [facility] MAGNESIUM 2023-11-23 07:52:00 Chrissieoot [facility] HEPATIC FUNCTION PANEL ([id number]) (ALB,T.PRO,BILI T,BU/BC,ALT,AST,ALK PHOS) 2023-11-23 07:52:00 TaborMukesh [facility] BASIC METABOLIC PANEL (NA, K , CL, CO2, GLUCOSE, BUN, CREATININE, CA) 2023-11-23 07:52:00 Tyet [facility] CBC WITH DIFF 2023-11-23 07:52:00 Louise [facility] ACTIVATED PARTIAL THRMPLAS DAVID 2023-11-23 07:52:00 Uli, Cris [facility] LACTIC ACID WHOLE BLOOD 2023-11-23 07:52:00 Rboinson Shin [facility] LACTIC ACID WHOLE BLOOD 2023-11-23 05:00:00 [facility] 2023-11-23 05:00:00 [facility] WHOLE [facility]LOOD 2023-11-23 03:12:00 [facility] WHOLE BLOOD 2023-11-23 03:12:00 Aleida [facility] LACTIC ACID WHOLE BLOOD 2023-11-23 00:57:00 Aleida [facility] LACTIC ACID WHOLE BLOOD 2023-11-23 00:57:00 Aleida [facility] POCT GLUCOSE (AUTOMATED) 2023-11-23 00:56:00 Lorenzo Ventura [facility] POCT GLUCOSE (AUTOMATED) 2023-11-23 00:56:00 Lorenzo Ventura [facility] LACTIC ACID WHOLE BLOOD 2023-11-22 23:49:00 Aleida [facility] LACTIC ACID WHOLE BLOOD 2023-11-22 23:49:00 Aleida [facility] POCT GLUCOSE (AUTOMATED) 2023-11-22 21:49:00 Lorenzo Ventura [facility] POCT GLUCOSE (AUTOMATED) 2023-11-22 21:49:00 Lorenzo Ventura [facility] LACTIC ACID WHOLE BLOOD 2023-11-22 21:41:00 Leander [facility] LACTIC ACID WHOLE BLOOD 2023-11-22 21:41:00 Leander [facility] POCT GLUCOSE (AUTOMATED) 2023-11-22 21:01:00 Lorenzo Ventura [facility] POCT GLUCOSE (AUTOMATED) 2023-11-22 21:01:00 Lorenzo Ventura [facility] ACTIVATED PARTIAL THRMPLAS DAVID 2023-11-22 19:46:00 Cris Mcnally [facility] LACTIC ACID WHOLE BLOOD 2023-11-22 19:46:00 Tabor, [facility] ACTIVATED PARTIAL THRMPLAS DAVID 2023-11-22 19:46:00 Uli [facility] LACTIC ACID WHOLE BLOOD 2023-11-22 19:46:00 Leander, [facility] LACTIC ACID WHOLE BLOOD 2023-11-22 17:22:00 [facility] LACTIC ACID WHOLE BLOOD 2023-11-22 17:22:00 [facility] POCT GLUCOSE (AUTOMATED) 2023-11-22 17:00:00 Ignacio [facility] POCT GLUCOSE (AUTOMATED) 2023-11-22 17:00:00 [facility]OWER EXTREMITY ARTERIAL DUPLEX BILATERAL - BY VASCULAR LAB 2023-11-22 16:43:47 [facility] LOWER EXTREMITY ARTERIAL DUPLEX BILATERAL - BY VASCULAR LAB 2023-11-22 16:43:47 [facility] TRANSTHORACIC ECHO (TTE) COMPLETE W/ CONTRAST 2023-11-22 15:50:00 Uli [facility] TRANSTHORACIC ECHO (TTE) COMPLETE W/ CONTRAST 2023-11-22 15:50:00 Uli [facility] US ABDOMEN LIMITED 2023-11-22 14:54:18 [facility] US ABDOMEN LIMITED 2023-11-22 14:54:18 [facility] HB ECG ROUTINE & RHYTHM STRIP 2023-11-22 14:28:42 Louise [facility] HB ECG ROUTINE & RHYTHM STRIP 2023-11-22 14:28:42 Louise [facility] COMP. METABOLIC PANEL ([id number]) 2023-11-22 14:26:00 [facility] IRON PANEL 2023-11-22 14:26:00 Uli [facility] LACTIC ACID WHOLE BLOOD 2023-11-22 14:26:00 [facility] COMP. METABOLIC PANEL ([id number]) 2023-11-22 14:26:00 Uli, [facility] IRON PANEL 2023-11-22 14:26:00 Uli [facility] LACTIC ACID WHOLE BLOOD 2023-11-22 14:26:00 Eric Hobbs [facility] POCT GLUCOSE (AUTOMATED) 2023-11-22 13:26:00 Madeline Pierre [facility] POCT GLUCOSE (AUTOMATED) 2023-11-22 13:26:[facility]MON[facility] ANGIOGRAM 2023-11-22 13:10:36 Uli [facility] CT CHEST PULMONARY ANGIOGRAM 2023-11-22 13:10:36 Uli [facility] PHOSPHORUS 2023-11-22 11:45:00 Uli [facility] CREATINE KINASE 2023-11-22 11:45:00 Janeth Gil [facility] FERRITIN SERUM 2023-11-22 11:45:00 Uli [facility] TROPONIN I 2023-11-22 11:45:00 Uli [facility] LIPID PANEL ([id number])(TOTAL CHOLESTEROL, TRIGLYCERIDES, HDL) 2023-11-22 11:45:00 Uli [facility] CBC WITH DIFF 2023-11-22 11:45:00 Uli [facility] GLYCOSYLATED HEMOGLOBIN (A1C) 2023-11-22 11:45:00 Uli [facility] PHOSPHORUS 2023-11-22 11:45:00 Uli [facility] CREATINE KINASE 2023-11-22 11:45:00 Janeth Gil [facility] FERRITIN SERUM 2023-11-22 11:45:00 Uli [facility] TROPONIN I 2023-11-22 11:45:00 Uli [facility] LIPID PANEL ([id number])(TOTAL CHOLESTEROL, TRIGLYCERIDES, HDL) 2023-11-22 11:45:00 Uli [facility] CBC WITH DIFF 2023-11-22 11:45:00 Uli [facility] GLYCOSYLATED HEMOGLOBIN (A1C) 2023-11-22 11:45:00 Uli [facility] BLOOD CULTURE SCREEN 2023-11-22 09:37:00 Uli [facility] BLOOD CULTURE SCREEN 2023-11-22 09:37:00 Uli [facility] BLOOD CULTURE SCREEN 2023-11-22 09:36:00 Uli, [facility] BLOOD CULTURE SCREEN 2023-11-22 09:36:00 Uli [facility] LOWER EXTREMITY VEIN WITH COMPRESSION BILATERAL (ONLY FOR RULE OUT DVT) 2023-11-22 08:09:01 Uli [facility] LOWER EXTREMITY VEIN WITH COMPRESSION BILATERAL (ONLY FOR RULE OUT DVT) 2023-11-22 08:09:01 Uli [facility] LACTIC ACID WHOLE BLOOD 2023-11-22 08:03:00 Uli [facility] LACTIC ACID WHOLE BLOOD 2023-11-22 08:03:00 Uli [facility] MAGNESIUM 2023-11-22 08:02:00 Uli [facility] TROPONIN I 2023-11-22 08:02:00 Uli [facility] PROTHROMBIN TIME / INR 2023-11-22 08:02:00 Uli [facility] D-DIMER 2023-11-22 08:02:00 Uli [facility] ACTIVATED PARTIAL THRMPLAS DAVID 2023-11-22 08:02:00 Uli [facility] PROCALCITONIN 2023-11-22 08:02:00 Uil [facility] MAGNESIUM 2023-11-22 08:02:00 Uli [facility] TROPONIN I 2023-11-22 08:02:00 Uli [facility] PROTHROMBIN TIME / INR 2023-11-22 08:02:00 Uli [facility] D-DIMER 2023-11-22 08:02:00 Uli [facility] ACTIVATED PARTIAL THRMPLAS DAVID 2023-11-22 08:02:00 Uli [facility] PROCALCITONIN 2023-11-22 08:02:00 Uli [facility] XR SHOULDER 2+ VW RIGHT 2023-11-22 07:33:00 Uli [facility] XR SHOULDER 2+ VW RIGHT 2023-11-22 07:33:00 Uli [facility] URINALYSIS 2023-11-22 04:33:00 [facility]IM[facility]UNOASSAY[facility] - COMPREHENSIVE DRUG SCREEN W/O REFLEX 2023-11-22 04:33:00 [facility] 2023-11-22 04:33:00 [facility]INE [facility] (IMMUNOASSAY) - COMPREHENSIVE DRUG SCREEN W/O REFLEX 2023-11-22 04:33:00 [facility] PROT[facility] / INR 2023-11-22 04:25:00 [facility] ACTIVATED PARTIAL THRMPLAS DAVID 2023-11-22 04:25:00 [facility] PROT[facility] / INR 2023-11-22 04:25:00 [facility] ACTIVATED PARTIAL THRMPLAS DAVID 2023-11-22 04:25:00 [facility] 2023-11-22 04:18:14 [facility] 2023-11-22 04:18:14 [facility] T4 2023-11-22 02:57:00 [facility] THYROID [facility]IMULATING HORMONE 2023-11-22 02:57:00 [facility] RAPID INFLUENZA A/B 2023-11-22 02:57:00 [facility] COVID-19 (ID NOW RAPID TESTING) 2023-11-22 02:57:00 Megan Rondon [facility] LAB ONLY COVID INTERPRETATION 2023-11-22 02:57:00 Megan Rondon [facility] FREE T4 2023-11-22 02:57:00 [facility] THYROID [facility]IM[facility]ATING HORMONE 2023-11-22 02:57:00 [facility] RAPID INFLUENZA A/B 2023-11-22 02:57:00 [facility] (ID NOW RAPID TESTING) 2023-11-22 02:57:00 [facility] COVID INTERPRETATION 2023-11-22 02:57:00 [facility] AMYLASE 2023-11-22 02:52:00 [facility] LIPASE 2023-11-22 02:52:00 [facility] TROPONIN I 2023-11-22 02:52:00 [facility] COMP. METABOLIC PANEL ([id number]) 2023-11-22 02:52:00 [facility] CBC WITH DIFF 2023-11-22 02:52:00 [facility] N-TERMINAL PRO-BNP 2023-11-22 02:52:00 [facility] AMYLASE 2023-11-22 02:52:00 [facility] LIPASE 2023-11-22 02:52:00 [facility] TROPONIN I 2023-11-22 02:52:00 [facility] COMP. METABOLIC PANEL ([id number]) 2023-11-22 02:52:00 [facility] CBC WITH DIFF 2023-11-22 02:52:00 [facility] N-TERMINAL PRO-BNP 2023-11-22 02:52:00 [facility] XR CHEST 1 VW 2023-11-22 02:34:13 [facility] 1 VW 2023-11-22 02:34:13 [facility] HB ECG ROUTINE & RHYTHM STRIP 2023-11-22 02:16:24 [facility] POCT-GLUCOSE METER 2023-09-08 08:40:00 Ferrer, [facility] CBC W/PLT COUNT & AUTO DIFFERENTIAL 2023-09-08 04:16:00 Joshua [facility] BASIC METABOLIC PANEL 2023-09-08 04:16:00 Joshua [facility] MAGNESIUM 2023-09-08 04:16:00 Joshua [facility] PHOSPHORUS 2023-09-08 04:16:00 Joshua [facility] CBC W/PLT COUNT & AUTO DIFFERENTIAL 2023-09-08 04:16:00 Joshua [facility] POCT-GLUCOSE METER 2023-09-07 21:29:00 Bud [facility] XR KNEE 3 VIEWS LEFT 2023-09-07 19:21:02 Bud [facility] VENOUS DOPPLER LEGS BILATERAL 2023-09-07 12:45:00 Joshua [facility] CBC W/PLT COUNT & AUTO DIFFERENTIAL 2023-09-07 03:17:00 Joshua [facility] BASIC METABOLIC PANEL 2023-09-07 03:17:00 Joshua [facility] MAGNESIUM 2023-09-07 03:17[facility]23-09-07 03:17:00 Joshua [facility] CBC W/PLT COUNT & AUTO DIFFERENTIAL 2023-09-07 03:17:00 [facility] POCT-GLUCOSE METER 2023-09-06 21:17:00 Bud [facility] POCT-GLUCOSE METER 2023-09-06 18:37:00 Bud [facility] POCT-GLUCOSE METER 2023-09-06 13:16:00 Bud [facility] POCT-GLUCOSE METER 2023-09-06 08:21:00 Bud [facility] CBC W/PLT COUNT & AUTO DIFFERENTIAL 2023-09-06 04:49:00 Joshua [facility] BASIC METABOLIC PANEL 2023-09-06 04:49:00 Joshua [facility] MAGNESIUM 2023-09-06 04:49:00 Joshua [facility] PHOSPHORUS 2023-09-06 04:49:00 [facility] W/[facility]T COUNT & AUTO DIFFERENTIAL 2023-09-06 04:49:00 [facility] POCT-GLUCOSE METER 2023-09-05 21:24:00 [facility]RAIN WITH & WITHOUT IV CONTRAST 2023-09-05 11:25:07 Sandi Aleman [facility] POCT-GLUCOSE METER 2023-09-05 08:10:00 Bud [facility] CBC W/PLT COUNT & AUTO DIFFERENTIAL 2023-09-05 04:44:00 [facility] BASIC [facility]OLIC PANEL 2023-09-05 04:44:00 [facility] MAGNESIUM 2023-09-05 04:44:00 [facility] PHOSPHORUS 2023-09-05 04:44:00 [facility] POCT-GLUCOSE METER 2023-09-05 04:44:00 [facility] W/[facility]T COUNT & AUTO DIFFERENTIAL 2023-09-05 04:44:00 [facility] POCT-GLUCOSE METER 2023-09-04 21:38:00 [facility] POCT-[facility]SE METER 2023-09-04 15:42:00 [facility] SARS-COV2/INFLUENZA/RSV RT-PCR 2023-09-04 11:25:00 Uli [facility] POCT-GLUCOSE METER 2023-09-04 10:53:00 Sabas [facility] POCT-GLUCOSE METER 2023-09-04 08:04:00 Sabas [facility] PROCALCITONIN 2023-09-04 06:56:00 Uli [facility] IRON, TIBC, % SAT. (WITHOUT FERRITIN) 2023-09-04 06:56:00 Uli [facility] FERRITIN 2023-09-04 06:56:00 Uli, Jovani [facility] BLOOD CULTURE 2023-09-04 06:37:00 Randall [facility] MR LUMBAR SPINE WITHOUT IV CONTRAST 2023-09-04 05:47:25 Melvi [facility] MR THORACIC SPINE WITHOUT IV CONTRAST 2023-09-04 04:53:00 Melvi [facility] MR CERVICAL SPINE WITHOUT IV CONTRAST 2023-09-04 04:18:00 Melvi [facility] CT THORACIC SPINE WITHOUT IV CONTRAST 2023-09-04 03:08:00 Randall [facility] CT LUMBAR SPINE WITHOUT IV CONTRAST 2023-09-04 03:08:00 Randall [facility] LACTIC ACID, VENOUS 2023-09-04 01:42:00 [facility] AND SCREEN, AUTOMATED 2023-09-04 01:42:00 Le [facility] CBC W/PLT COUNT & AUTO DIFFERENTIAL 2023-09-04 00:51:00 Melvi [facility] COMPREHENSIVE METABOLIC PANEL 2023-09-04 00:51:00 Melvi [facility] MAGNESIUM 2023-09-04 00:51:00 Melvi [facility] PHOSPHORUS 2023-09-04 00:51:00 Melvi [facility] PROTHROMBIN TIME/INR 2023-09-04 00:51:00 Melvi [facility] APTT 2023-09-04 00:51:00 Melvi [facility] B-TYPE NATRIURETIC FACTOR (BNP) 2023-09-04 00:51:00 Melvi [facility] URINALYSIS WITHOUT MICROSCOPIC 2023-09-04 00:51:00 [facility] RAPID DRUG SCREEN, URINE 2023-09-04 00:51:00 [facility] D-DIMER 2023-09-04 00:51:00 London [facility] FIBRINOGEN 2023-09-04 00:51:00 RandallJorge [facility] CBC W/PLT COUNT & AUTO DIFFERENTIAL 2023-09-04 00:51:00 AdrianaChico mcghee [facility] EKG-SCANNED 2023-09-04 00:00:00 Provider, Default Scanning [facility] LACTIC ACID WHOLE BLOOD 2023-08-12 20:31:00 Mj Bryan [facility] COMP. METABOLIC PANEL ([id number]) 2023-08-12 20:29:00 Mj Bryan [facility] CBC WITH DIFF 2023-08-12 20:29:00 Singer Mj [facility] CONSENT/REFUSAL FOR DIAGNOSI S AND TREATMENT 2023-08-12 19:43:16 Doctor Unassigned, [place] [facility] TRANSESOPHAGEAL ECHO 2023-06-16 11:05:00 [facility] T SPOT TB 2023-06-15 04:51:00 Lauren Blair [facility] FUNGITELL R B-D-GLUCAN WITH REFLEX TO TITER 2023-06-15 04:51:00 Lauren Blair [facility] ASPERGILLUS GALACTOMANNAN ANTIGEN 2023-06-15 04:51:00 Rossy [facility] Raul [facility] VANCOMYCIN LEVEL, TROUGH 2023-06-15 04:51:00 Kaylene Mendosa [facility] T-SPOT(R).TB (QUEST) 2023-06-15 04:27:00 Provider, Not In System [facility] T-SPOT(R).TB (QUEST) 2023-06-15 04:27:00 System, Provider Not In [facility] ECHO W CONTRAST & DOPPLER 2023-06-14 09:22:00 [facility] HEMOGLOBIN A1C 2023-06-14 04:08:00 Marianela Burgess [facility] CBC (HEMOGRAM ONLY) 2023-06-14 04:08:00 [facility]bi [facility] BASIC METABOLIC PANEL 2023-06-14 04:08:00 [facility] CRYPTOCOCCAL ANTIGEN 2023-06-13 17:21:00 Lauren Blair [facility] HC LAB HIV-1 AG W/HIV-1&2 AB 2023-06-13 17:21:00 Lauren Blair Raul [facility] VENOUS DOPPLER ARM, LEFT 2023-06-13 17:20:00 Marianela Burgess [facility] LEGIONELLA ANTIGEN, URINE 2023-06-13 17:00:00 [facility] SPUTUM CULTURE + GRAM STAIN 2023-06-13 14:33:00 [facility] MR LUMBAR SPINE WITH & WITHOUT IV CONTRAST 2023-06-13 13:03:47 Burt Nelson [facility] ECG 12-LEAD 2023-06-13 11:47:02 [facility] ECG 12-LEAD 2023-06-13 11:47:02 Unknown, Hl7 Doctor [facility] MRSA SCREEN 2023-06-13 09:19:00 [facility] CBC W/PLT COUNT & AUTO DIFFERENTIAL 2023-06-13 06:03:00 Marianela Burgess [facility] COMPREHENSIVE METABOLIC PANEL 2023-06-13 06:03:00 [facility] PROTHROMBIN TIME/INR 2023-06-13 06:03:00 DodieMarianela richardson [facility] CREATINE KINASE (CK) 2023-06-13 06:03:00 [facility] CBC W/PLT COUNT & AUTO DIFFERENTIAL 2023-06-13 06:03:00 Marianela Burgess [facility] BLOOD CULTURE 2023-06-13 06:02:00 Marianela Burgess [facility] CBC W/PLT COUNT & AUTO DIFFERENTIAL 2023-06-02 04:41:00 Sunil Chu [facility] BASIC METABOLIC PANEL 2023-06-02 04:41:00 KimberleySunil [facility] MAGNESIUM 2023-06-02 04:41:00 KimberleySunil [facility] PHOSPHORUS 2023-06-02 04:41:00 KimberleySunil [facility] CBC W/PLT COUNT & AUTO DIFFERENTIAL 2023-06-02 04:41:00 KimberleySunil [facility] XR SPINE LUMBAR 1 VIEW 2023-06-01 10:31:00 [place] [facility] XR SPINE LUMBAR 1 VIEW 2023-06-01 09:46:00 [facility] LAMINECTOMY, SPINE, LUMBAR 2023-06-01 09:10:00 [facility] PROCEDURE W/ C-ARM 2023-06-01 09:10:00 [facility] LAMINECTOMY, SPINE, LUMBAR 2023-06-01 07:30:[address] [facility] PROCED[facility] W/ C-ARM 2023-06-01 07:30:00 [place] [facility] SCREEN, URINE 2023-06-01 04:33:00 [place] [facility] BASIC METABOLIC PANEL 2023-05-31 22:55:00 Dallas Gomez [facility] CBC W/PLT COUNT & AUTO DIFFERENTIAL 2023-05-31 22:55:00 Dallas Gomez [facility] PT/APTT 2023-05-31 22:55:00 Dallas Gomez [facility] CBC W/PLT COUNT & AUTO DIFFERENTIAL 2023-05-31 22:55:00 Dallas Gomez [facility] CT NECK SOFT TISSUE WITHOUT IV CONTRAST 2023-05-31 09:39:[facility] TYPE AND SCREEN, AUTOMATED 2023-05-31 09:13:00 Omar Burt [facility] BASIC METABOLIC PANEL 2023-05-29 06:43:00 Omar [facility] CBC W/PLT COUNT & AUTO DIFFERENTIAL 2023-05-29 06:43:00 Omar Burt [facility] CBC W/PLT COUNT & AUTO DIFFERENTIAL 2023-05-29 06:43:00 Omar Burt [facility] XR SPINE CERVICAL 2 OR 3 VIEWS 2023-05-28 18:57:00 Omar [facility] FL FLUORO NON-SPECIFIC UP TO 1 HOUR 2023-05-28 10:48:00 Jose [facility] [place] FLUORO NON-SPECIFIC UP TO 1 HOUR 2023-05-28 10:07:00 Jose [facility] DISCECTOMY, SPINE, CERVICAL, ANTERIOR APPROACH, WITH FUSION 2023-05-28 08:15:00 [facility] INSERTION, HARDWARE, SPINAL 2023-05-28 08:15:00 [facility] PROCEDURE, ALLOGRAFT, FOR SPINE SURGERY 2023-05-28 08:15:00 [place] [facility] AUTOGRAFT FOR SPINE SURGERY 2023-05-28 08:15:00 Jose [place] Adi [facility] PROCEDURE W/ C-ARM 2023-05-28 08:15:00 [facility] NEUROPHYSIOLOGIC MONITORING, INTRAOPERATIVE 2023-05-28 08:15:00 Jose [facility] PROCEDURE, USING OPERATING MICROSCOPE 2023-05-28 08:15:00 [place] [facility] HCG, QUANTITATIVE, 2023-05-28 07:42:00 Yue Bui [facility] TYPE AND SCREEN, AUTOMATED 2023-05-28 07:42:00 Quin Monet [facility] XR CHEST 1 VIEW PORTABLE / BEDSIDE 2023-04-01 15:32:[address] [facility] B-TYPE NATRIURETIC FACTOR (BNP) 2023-04-01 13:32:00 Thomas oLzoya [facility] ECHO W CONTRAST & DOPPLER 2023-03-31 20:18:37 Mariah Aldridge [facility] MR CERVICAL SPINE WITHOUT IV CONTRAST 2023-03-31 09:25:00 Edward Lewis [facility] CBC (HEMOGRAM ONLY) 2023-03-31 03:45:00 Jasen [facility] COMPREHENSIVE METABOLIC PANEL 2023-03-31 03:45:00 Jasen [facility] ARTERIAL DOPPLER LEGS BILATERAL 2023-03-30 15:45:[facility] ARTERIAL (ALEISHA'S W/ DOPPLER) ONLY 2023-03-30 15:44:00 Jasen [facility] ECG 12-LEAD 2023-03-30 13:06:22 Jasen [facility] ECG 12-LEAD 2023-03-30 13:06:22 Unknown, Hl7 [facility] MR THORACIC SPINE WITHOUT IV CONTRAST 2023-03-30 12:29:58 Eric [facility] MR LUMBAR SPINE WITHOUT IV CONTRAST 2023-03-30 11:58:00 Eric [facility] EEG AWAKE AND DROWSY 2023-03-30 09:57:53 [facility] VALPROIC ACID LEVEL, TOTAL 2023-03-30 09:06:00 [facility] URINALYSIS W/ REFLEX URINE CULTURE 2023-03-30 03:54[facility] ONLY[facility] 2023-03-30 03:52:00 Jasen [facility] COMPREHENSIVE METABOLIC PANEL 2023-03-30 03:52:00 Jasen [facility] HEMOGLOBIN A1C 2023-03-30 03:52:00 [facility] PT/APTT 2023-03-30 03:52:00 Thomas Lozoya [facility] EKG-SCANNED 2023-03-29 00:00:00 Provider, Default Scanning [facility] CT HEAD WO CONTRAST 2022-12-11 18:36:49 Alfonso Alvarado [facility] URINE DRUG (IMMUNOASSAY) - COMPREHENSIVE DRUG SCREEN 2022-12-11 17:13:00 Alfonso Alvarado [facility] URINALYSIS 2022-12-11 17:13:00 Alfonso Alvarado [facility] CT CHEST PULMONARY ANGIOGRAM 2022-12-11 16:26:39 Alfonso Alvarado [facility] MAGNESIUM 2022-12-11 14:57:00 Alfonso Alvarado [facility] COMP. METABOLIC PANEL ([id number]) 2022-12-11 14:57:00 Alfonso Alvarado [facility] D-DIMER 2022-12-11 14:15:00 Alfonso Alvarado [facility] XR CHEST 1 VW 2022-12-11 14:10:26 Alfonso Alvarado [facility] TROPONIN I 2022-12-11 14:02:00 Alfonso Alvarado Lorelei [facility] CBC WITH DIFF 2022-12-11 14:02:00 Alfonso Alvarado Lorelei [facility] N-TERMINAL PRO-BNP 2022-12-11 14:02:00 Alfonso Alvarado [facility] HB ECG ROUTINE & RHYTHM STRIP 2022-12-11 14:01:08 Alfonso Alvarado Lorelei [facility] CONSENT/REFUSAL FOR DIAGNOSI S AND TREATMENT 2022-12-11 13:52:01 Doctor Unassigned, [place] [facility] ECG 12-LEAD 2022-08-03 05:03:32 Unknown, Hl7 Doctor [facility] ECG 12-LEAD 2022-08-03 05:03:32 Unknown, Hl7 Doctor [facility] LIPID PANEL 2022-08-02 21:14:00 [facility] TSH/FREE T4 IF INDICATED 2022-08-02 21:14:00 [facility] VITAMIN B12 2022-08-02 21:14:00 [facility] HEMOGLOBIN A1C 2022-08-02 21:14:00 [facility] COMPREHENSIVE METABOLIC PANEL 2022-08-02 21:14:00 [facility] CBC W/PLT COUNT & AUTO DIFFERENTIAL 2022-08-02 21:14:00 [place] [facility] RPR 2022-08-02 21:14:00 [facility] HC LAB HIV-1 AG W/HIV-1&2 AB 2022-08-02 21:14:00 [place] [facility] C-REACTIVE PROTEIN 2022-08-02 21:14:00 [facility] CBC W/PLT COUNT & AUTO DIFFERENTIAL 2022-08-02 21:14:00 [place] [facility] EKG-SCANNED 2022-08-02 00:00:00 Provider, Default Scanning [facility] CT HEAD WO CONTRAST 2022-08-01 23:52:15 Dami Lowry [facility] GALV ONLY - INFLUENZA A B RS V PCR 2022-08-01 18:28:00 Letitia Chambers [facility] TRANSTHORACIC ECHO (TTE) COMPLETE W/ CONTRAST 2022-08-01 14:42:00 Kylee Montez [facility] MAGNESIUM 2022-08-01 10:42:00 Dami Lowry [facility] BASIC METABOLIC PANEL (NA, K , CL, CO2, GLUCOSE, BUN, CREATININE, CA) 2022-08-01 10:42:00 Essence Dami [facility] CBC WITH DIFF 2022-08-01 10:42:00 Essence [facility] N-TERMINAL PRO-BNP 2022-08-01 10:42[facility] 2022-08-01 06:56:00 Dami Lowry [facility] CRITICAL CARE 2022-07-31 22:31:36 Megan Rondon [facility] URINALYSIS 2022-07-31 20:52:00 Megan Rondon [facility] URINE DRUG (IMMUNOASSAY) - COMPREHENSIVE DRUG SCREEN W/O REFLEX 2022-07-31 20:52:00 Megan Rondon [facility] XR CHEST 1 VW 2022-07-31 18:45:17 Megan Rondon [facility] LIPASE 2022-07-31 17:58:00 Megan Rondon [facility] TROPONIN I 2022-07-31 17:58:00 Megan Rondon [facility] COMP. METABOLIC PANEL ([id number]) 2022-07-31 17:58:00 Megan Rondon [facility] CBC WITH DIFF 2022-07-31 17:58:00 Megan Rondon [facility] PROTHROMBIN TIME / INR 2022-07-31 17:58:00 Megan Rondon [facility] ACTIVATED PARTIAL THRMPLAS DAVID 2022-07-31 17:58[facility]00 [facility] 2022-07-31 17:58:00 Megan Rondon [facility] HB ECG ROUTINE & RHYTHM STRIP 2022-07-31 17:46:28 [facility] [facility] NOTICE OF PRIVACY PRACTICES 2022-07-31 17:35:38 Doctor Unassigned, [place] [facility] CONSENT/REFUSAL FOR DIAGNOSI S AND TREATMENT 2022-07-31 17:35:13 Doctor Unassigned, [place] [facility] PHOSPHORUS 2022-05-08 05:51:00 Shefali Azeem [facility] MAGNESIUM 2022-05-08 05:51:00 Shefali [facility] BASIC METABOLIC PANEL (NA, K , CL, CO2, GLUCOSE, BUN, CREATININE, CA) 2022-05-08 05:51:00 Shefali [facility] CBC WITH DIFF 2022-05-08 05:51:00 Shefali [facility] BASIC METABOLIC PANEL (NA, K , CL, CO2, GLUCOSE, BUN, CREATININE, CA) 2022-05-07 07:09:00 John Cintron [facility] CBC WITH DIFF 2022-05-07 07:09:00 John Cintron [facility] POCT GLUCOSE (AUTOMATED) 2022-05-07 01:16:00 Brandyn Ibrahim [facility] HB ABO GROUPING 2022-05-06 05:07:00 Ismael Dunn [facility] BASIC METABOLIC PANEL (NA, K , CL, CO2, GLUCOSE, BUN, CREATININE, CA) 2022-05-06 05:04:00 Shefali [facility] CBC WITH DIFF 2022-05-06 05:04:00 Shefali [facility] KEPPRA (LEVETIRACETAM) 2022-05-06 05:04:00 Shefali [facility] MR LUMBAR SPINE WO CONTRAST 2022-05-06 02:54:37 Ender Monet [facility] ELECTROENCEPHALOGRAM 2022-05-06 00:00:00 John Cintron [facility] BASIC METABOLIC PANEL (NA, K , CL, CO2, GLUCOSE, BUN, CREATININE, CA) 2022-05-05 07:57[facility] 2022-05-05 07:57:00 Ismael Dunn [facility] PROTHROMBIN TIME / INR 2022-05-05 07:57:00 Ismael Dunn [facility] ACTIVATED PARTIAL THRMPLAS DAVID 2022-05-05 07:57:00 Ismael Dunn [facility] FIBRINOGEN 2022-05-05 07:57[facility]00 [facility]RE[facility] S AND AUTHORIZATIONS 2022-05-04 05:01:00 Doctor Unassigned, [place] [facility] VITAMIN D, 25-OH 2022-04-15 16:53:00 Sen [place] [facility] MR THORACIC SPINE WO CONTRAST 2022-04-15 11:56:19 Harshil [facility] MR CERVICAL SPINE WO CONTRAST 2022-04-15 11:20:00 Harshil [facility] BASIC METABOLIC PANEL (NA, K , CL, CO2, GLUCOSE, BUN, CREATININE, CA) 2022-04-15 10:36:00 Charmaine Morataya [facility] TEST, URINE 2022-04-15 04:39:00 Harshil [facility] URINE DRUG (IMMUNOASSAY) - COMPREHENSIVE DRUG SCREEN 2022-04-15 04:39:00 Harshil [facility] URINALYSIS 2022-04-15 04:39:00 Harshil [facility] TRANSTHORACIC ECHO (TTE) COMPLETE W/ CONTRAST 2022-04-14 16:37:03 Harshil [facility] KEPPRA (LEVETIRACETAM) 2022-04-14 15:30:00 Harshil [facility] MAGNESIUM 2022-04-14 10:03:00 Harshil [facility] BASIC METABOLIC PANEL (NA, K , CL, CO2, GLUCOSE, BUN, CREATININE, CA) 2022-04-14 10:03:00 Harshil [facility] MR LUMBAR SPINE WO CONTRAST 2022-04-14 02:48:12 Harshil [facility] MR STROKE BRAIN WO CONTRAST 2022-04-14 02:29:00 [address] [facility] CT STROKE ANGIOGRAM HEAD 2022-04-13 18:40:00 Sapna Vargas [facility] CT STROKE ANGIOGRAM NECK 2022-04-13 18:40:00 Sapna Vargas [facility] CT STROKE HEAD WO CONTRAST 2022-04-13 18:36:00 Sapna Vargas [facility] TROPONIN I 2022-04-13 18:17:00 Sapna Vargas [facility] THYROID STIMULATING HORMONE 2022-04-13 18:17:00 Harshil [facility] BASIC METABOLIC PANEL (NA, K , CL, CO2, GLUCOSE, BUN, CREATININE, CA) 2022-04-13 18:17:00 Sapna Vargas [facility] LIPID PANEL ([id number])(TOTAL CHOLESTEROL, TRIGLYCERIDES, HDL) 2022-04-13 18:17:00 Harshil [facility] CBC WITHOUT DIFF 2022-04-13 18:17:00 Sapna Vargas [facility] GLYCOSYLATED HEMOGLOBIN (A1C) 2022-04-13 18:17:00 Harshil [facility] PROTHROMBIN TIME / INR 2022-04-13 18:17:00 Sapna Vargas [facility] ACTIVATED PARTIAL THRMPLAS DAVID 2022-04-13 18:17:00 Sapna Vargas [facility] COVID-19 (ID NOW RAPID TESTING) 2022-04-13 18:17:00 Sapna Vargas [facility] LAB ONLY COVID INTERPRETATION 2022-04-13 18:17:00 Sapna Vargas [facility] HB ECG ROUTINE & RHYTHM STRIP 2022-04-13 18:15:49 Sapna Vargas [facility] CONSENT/REFUSAL FOR DIAGNOSI S AND TREATMENT 2022-04-13 18:05:14 Doctor Unassigned, [place] [facility] HOSPITAL ADMISSION 2022-04-13 05:01:00 Doctor Unassigned, [place] [facility] SARS-COV-2 COVID-19 VACCINE 12 YRS+,0.3ML,IM (PFIZER - ROSE TOP) 2022-02-19 15:21:12 Doctor Unassigned, [place] [facility] URINE DRUG (IMMUNOASSAY) - COMPREHENSIVE DRUG SCREEN W/O REFLEX 2021-11-23 21:21:00 Williams Virk [facility] CT HEAD WO CONTRAST 2021-11-23 20:58:00 Williams Virk [facility] POCT TEST 2021-11-23 20:46:00 Williams Virk [facility] URINALYSIS 2021-11-23 20:43:00 Williams Virk [facility] LIPASE 2021-11-23 20:27:00 Williams Virk [facility] TROPONIN I 2021-11-23 20:27:00 Williams Virk [facility] COMP. METABOLIC PANEL ([id number]) 2021-11-23 20:27:00 Williams Virk [facility] CBC WITH DIFF 2021-11-23 20:27:00 Williams Virk [facility] POCT GLUCOSE (AUTOMATED) 2021-11-23 20:15:00 Doctor Unassigned, [place] [facility] SARS-COV-2 COVID-19 VACCINE,0.3ML,IM (PFIZER) 2021-05-24 14:23:12 Doctor Unassigned, [place] [facility] SARS-COV-2 COVID-19 VACCINE,0.3ML,IM (PFIZER) 2021-05-03 14:59:29 Doctor Unassigned, [place] [facility] EMERGENCY SERVICES AGREEMENT S AND AUTHORIZATIONS 2021-04-16 05:01:00 Doctor Unassigned, [place] [facility] URINALYSIS 2021-03-17 03:09:00 Fabrice Chakraborty [facility] XR CHEST 1 VW 2021-03-17 01:45:07 Palmer [facility] TROPONIN I 2021-03-17 01:35:00 Palmer [facility] COMP. METABOLIC PANEL ([id number]) 2021-03-17 01:35:00 [facility] CBC WITH DIFF 2021-03-17 01:35:00 Palmer [facility] N-TERMINAL PRO-BNP 2021-03-17 01:35:00 Palmer [facility] COVID-19 (ID NOW RAPID TESTING) 2021-03-17 00:58:00 Mj Bryan [facility] CONSENT/REFUSAL FOR DIAGNOSI S AND TREATMENT 2021-03-17 00:32:59 Doctor Unassigned, [place] [facility] COVID-19 (ID NOW RAPID TESTING) 2021-02-19 17:04:00 Estefania Monroy [facility] CT ABDOMEN PELVIS W CONTRAST 2021-02-19 16:41:18 Estefania Monroy [facility] LIPASE 2021-02-19 15:58:00 Estefania Monroy [facility] COMP. METABOLIC PANEL ([id number]) 2021-02-19 15:58:00 Estefania Monroy [facility] CBC WITH DIFF 2021-02-19 15:58:00 Estefania Monroy [facility] URINALYSIS 2021-02-19 15:58:00 Estefania Monroy [facility] NOTICE OF PRIVACY PRACTICES 2021-02-19 15:30:46 Doctor Unassigned, [place] [facility] CONSENT/REFUSAL FOR DIAGNOSI S AND TREATMENT 2021-02-19 15:30:30 Doctor Unassigned, [place] [facility] Plan of Care Planned Activity Planned Date Details Comments Source Future Scheduled Test 2025-08-02 00:00:00 Lipid panel (procedure) [code = 29602074] [facility] Future Scheduled Test 2025-08-02 00:00:00 Lipid panel (procedure) [code = 28279846] [facility] Future Scheduled Test 2025-08-02 00:00:00 Lipid panel (procedure) [code = 99860689] [facility] Future Scheduled Test 2025-08-02 00:00:00 Lipid panel (procedure) [code = 55815637] [facility] Future Scheduled Test 2025-08-02 00:00:00 Lipid panel (procedure) [code = 40645571] [facility] Future Scheduled Test 2025-08-02 00:00:00 Lipid panel (procedure) [code = 97971137] [facility] Future Scheduled Test 2025-08-02 00:00:00 Lipid panel (procedure) [code = 66256838] [facility] Future Scheduled Test 2025-08-02 00:00:00 Lipid panel (procedure) [code = 35250062] [facility] Future Scheduled Test 2025-08-02 00:00:00 Lipid panel (procedure) [code = 49000035] [facility] Future Scheduled Test 2025-08-02 00:00:00 Lipid panel (procedure) [code = [id number]] [facility] Future Scheduled Test 2025-08-02 00:00:00 Lipid panel (procedure) [code = 84799259] [facility] Future Scheduled Test 2025-08-02 00:00:00 Lipid panel (procedure) [code = 06948099] [facility] Future Scheduled Test 2025-08-02 00:00:00 Lipid panel (procedure) [code = 30770891] [facility] Future Scheduled Test 2025-08-02 00:00:00 Lipid panel (procedure) [code = 57782543] [facility] Future Scheduled Test 2025-08-02 00:00:00 Lipid panel (procedure) [code = 60625294] [facility] Future Scheduled Test 2025-08-02 00:00:00 Lipid panel (procedure) [code = 34076778] [facility] Future Scheduled Test 2025-08-02 00:00:00 Lipid panel (procedure) [code = 62788870] [facility] Future Scheduled Test 2025-08-02 00:00:00 Lipid panel (procedure) [code = 97823315] [facility] Future Scheduled Test 2025-08-02 00:00:00 Lipid panel (procedure) [code = 30454341] [facility] Future Scheduled Test 2025-08-02 00:00:00 Lipid panel (procedure) [code = 17495925] [facility] Future Scheduled Test 2025-08-02 00:00:00 Lipid panel (procedure) [code = 53602886] [facility] Future Scheduled Test 2025-08-02 00:00:00 Lipid panel (procedure) [code = 37341344] [facility] Future Scheduled Test 2025-08-02 00:00:00 Lipid panel (procedure) [code = 43721035] [facility] Future Scheduled Test 2025-08-02 00:00:00 Lipid panel (procedure) [code = 18836588] [facility] Future Scheduled Test 2025-08-02 00:00:00 Lipid panel (procedure) [code = 19066367] [facility] Future Scheduled Test 2025-08-02 00:00:00 Lipid panel (procedure) [code = 32762400] [facility] Future Scheduled Test 2025-08-02 00:00:00 Lipid panel (procedure) [code = 47494405] [facility] Future Scheduled Test 2025-08-02 00:00:00 Lipid panel (procedure) [code = 41478792] [facility] Future Scheduled Test 2025-08-02 00:00:00 Lipid panel (procedure) [code = 82475648] [facility] Future Scheduled Test 2025-08-02 00:00:00 Lipid panel (procedure) [code = 39189953] [facility] Future Scheduled Test 2025-08-02 00:00:00 Lipid panel (procedure) [code = 04925940] [facility] Future Scheduled Test 2025-08-02 00:00:00 Lipid panel (procedure) [code = 62286989] [facility] Future Scheduled Test 2025-08-02 00:00:00 Lipid panel (procedure) [code = 65639190] [facility] Future Scheduled Test 2025-08-02 00:00:00 Lipid panel (procedure) [code = 07477973] [facility] Future Scheduled Test 2025-08-02 00:00:00 Lipid panel (procedure) [code = 43734820] [facility] Future Scheduled Test 2025-08-02 00:00:00 Lipid panel (procedure) [code = 64128129] [facility] Future Scheduled Test 2025-08-02 00:00:00 Lipid panel (procedure) [code = 72989263] [facility] Future Scheduled Test 2025-08-02 00:00:00 Lipid panel (procedure) [code = 07886232] [facility] Future Scheduled Test 2025-08-02 00:00:00 Lipid panel (procedure) [code = 06125726] [facility] Future Scheduled Test 2025-08-02 00:00:00 Lipid panel (procedure) [code = 49734601] [facility] Future Scheduled Test 2025-08-02 00:00:00 Lipid panel (procedure) [code = 59740441] [facility] Future Scheduled Test 2025-08-02 00:00:00 Lipid panel (procedure) [code = 17949052] [facility] Future Scheduled Test 2025-08-02 00:00:00 Lipid panel (procedure) [code = 55505233] [facility] Future Scheduled Test 2025-08-02 00:00:00 Lipid panel (procedure) [code = 74074599] [facility] Future Scheduled Test 2025-08-02 00:00:00 Lipid panel (procedure) [code = 34855921] [facility] Future Scheduled Test 2025-08-02 00:00:00 Lipid panel (procedure) [code = 08537727] [facility] Future Scheduled Test 2025-08-02 00:00:00 Lipid panel (procedure) [code = 75803846] [facility] Future Scheduled Test 2025-08-02 00:00:00 Lipid panel (procedure) [code = 39901452] [facility] Future Scheduled Test 2025-08-02 00:00:00 Lipid panel (procedure) [code = 72826601] [facility] Future Scheduled Test 2025-08-02 00:00:00 Lipid panel (procedure) [code = 80110288] [facility] Future Scheduled Test 2025-08-02 00:00:00 Lipid panel (procedure) [code = 47024578] [facility] Future Scheduled Test 2025-08-02 00:00:00 Lipid panel (procedure) [code = 44337705] [facility] Future Scheduled Test 2025-08-02 00:00:00 Lipid panel (procedure) [code = 83007408] [facility] Future Scheduled Test 2025-08-02 00:00:00 Lipid panel (procedure) [code = 05087642] [facility] Future Scheduled Test 2025-08-02 00:00:00 Lipid panel (procedure) [code = 04361471] [facility] Future Scheduled Test 2025-08-02 00:00:00 Lipid panel (procedure) [code = 02198210] [facility] Future Scheduled Test 2025-08-02 00:00:00 Lipid panel (procedure) [code = 16411112] [facility] Future Scheduled Test 2025-08-02 00:00:00 Lipid panel (procedure) [code = 20614463] [facility] Future Scheduled Test 2025-08-02 00:00:00 Lipid panel (procedure) [code = 63158117] [facility] Future Scheduled Test 2025-08-02 00:00:00 Lipid panel (procedure) [code = 01206348] [facility] Future Scheduled Test 2025-08-02 00:00:00 Lipid panel (procedure) [code = 53110971] [facility] Future Scheduled Test 2025-08-02 00:00:00 Lipid panel (procedure) [code = 41259645] [facility] Future Scheduled Test 2025-08-02 00:00:00 Lipid panel (procedure) [code = 44052038] [facility] Future Scheduled Test 2025-08-02 00:00:00 Lipid panel (procedure) [code = 27234002] [facility] Future Scheduled Test 2025-08-02 00:00:00 Lipid panel (procedure) [code = 81043503] [facility] Future Scheduled Test 2025-08-02 00:00:00 Lipid panel (procedure) [code = 08476232] [facility] Future Scheduled Test 2025-08-02 00:00:00 Lipid panel (procedure) [code = 86140588] [facility] Future Scheduled Test 2025-08-02 00:00:00 Lipid panel (procedure) [code = 97646681] [facility] Future Scheduled Test 2025-08-02 00:00:00 Lipid panel (procedure) [code = 19946310] [facility] Future Scheduled Test 2025-08-02 00:00:00 Lipid panel (procedure) [code = 89815284] [facility] Future Scheduled Test 2024-05-28 00:00:00 Tobacco Cessation Counseling and Screening (12+) [code = Tobacco Cessation Counseling and Screening (12+)] [facility] Future Scheduled Test 2024-05-28 00:00:00 Tobacco Cessation Counseling and Screening (12+) [code = Tobacco Cessation Counseling and Screening (12+)] [facility] Future Scheduled Test 2024-05-28 00:00:00 Tobacco Cessation Counseling and Screening (12+) [code = Tobacco Cessation Counseling and Screening (12+)] [facility] Future Scheduled Test 2024-05-28 00:00:00 Tobacco Cessation Counseling and Screening (12+) [code = Tobacco Cessation Counseling and Screening (12+)] [facility] Future Scheduled Test 2024-05-28 00:00:00 Tobacco Cessation Counseling and Screening (12+) [code = Tobacco Cessation Counseling and Screening (12+)] [facility] Future Scheduled Test 2024-05-28 00:00:00 Tobacco Cessation Counseling and Screening (12+) [code = Tobacco Cessation Counseling and Screening (12+)] [facility] Scheduled Test 2024-05-28 00:00:00 Tobacco Cessation Counseling and Screening (12+) [code = Tobacco Cessation Counseling and Screening (12+)] [facility] Scheduled Test 2024-05-28 00:00:00 Tobacco Cessation Counseling and Screening (12+) [code = Tobacco Cessation Counseling and Screening (12+)] [facility] Scheduled Test 2024-05-28 00:00:00 Tobacco Cessation Counseling and Screening (12+) [code = Tobacco Cessation Counseling and Screening (12+)] [facility] Scheduled Test 2024-05-28 00:00:00 Tobacco Cessation Counseling and Screening (12+) [code = Tobacco Cessation Counseling and Screening (12+)] [facility] Scheduled Test 2024-05-28 00:00:00 Tobacco Cessation Counseling and Screening (12+) [code = Tobacco Cessation Counseling and Screening (12+)] [facility] Scheduled Test 2024-05-28 00:00:00 Tobacco Cessation Counseling and Screening (12+) [code = Tobacco Cessation Counseling and Screening (12+)] [facility] Scheduled Test 2024-05-28 00:00:00 Tobacco Cessation Counseling and Screening (12+) [code = Tobacco Cessation Counseling and Screening (12+)] [facility] Scheduled Test 2024-05-28 00:00:00 Tobacco Cessation Counseling and Screening (12+) [code = Tobacco Cessation Counseling and Screening (12+)] [facility] Future Scheduled Test 2024-05-28 00:00:00 Tobacco Cessation Counseling and Screening (12+) [code = Tobacco Cessation Counseling and Screening (12+)] [facility] Scheduled Test 2024-05-28 00:00:00 Tobacco Cessation Counseling and Screening (12+) [code = Tobacco Cessation Counseling and Screening (12+)] [facility] Scheduled Test 2024-05-28 00:00:00 Tobacco Cessation Counseling and Screening (12+) [code = Tobacco Cessation Counseling and Screening (12+)] [facility] Scheduled Test 2024-05-28 00:00:00 Tobacco Cessation Counseling and Screening (12+) [code = Tobacco Cessation Counseling and Screening (12+)] [facility] Scheduled Test 2024-05-28 00:00:00 Tobacco Cessation Counseling and Screening (12+) [code = Tobacco Cessation Counseling and Screening (12+)] [facility] Scheduled Test 2024-05-28 00:00:00 Tobacco Cessation Counseling and Screening (12+) [code = Tobacco Cessation Counseling and Screening (12+)] [facility] Scheduled Test 2024-05-28 00:00:00 Tobacco Cessation Counseling and Screening (12+) [code = Tobacco Cessation Counseling and Screening (12+)] [facility] Scheduled Test 2024-05-28 00:00:00 Tobacco Cessation Counseling and Screening (12+) [code = Tobacco Cessation Counseling and Screening (12+)] [facility] Scheduled Test 2024-05-28 00:00:00 Tobacco Cessation Counseling and Screening (12+) [code = Tobacco Cessation Counseling and Screening (12+)] [facility] Scheduled Test 2024-05-28 00:00:00 Tobacco Cessation Counseling and Screening (12+) [code = Tobacco Cessation Counseling and Screening (12+)] [facility] Scheduled Test 2024-05-28 00:00:00 Tobacco Cessation Counseling and Screening (12+) [code = Tobacco Cessation Counseling and Screening (12+)] [facility] Scheduled Test 2024-05-28 00:00:00 Tobacco Cessation Counseling and Screening (12+) [code = Tobacco Cessation Counseling and Screening (12+)] [facility] Scheduled Test 2024-05-28 00:00:00 Tobacco Cessation Counseling and Screening (12+) [code = Tobacco Cessation Counseling and Screening (12+)] [facility] Scheduled Test 2024-05-28 00:00:00 Tobacco Cessation Counseling and Screening (12+) [code = Tobacco Cessation Counseling and Screening (12+)] [facility] Scheduled Test 2024-05-28 00:00:00 Tobacco Cessation Counseling and Screening (12+) [code = Tobacco Cessation Counseling and Screening (12+)] [facility] Scheduled Test 2024-05-28 00:00:00 Tobacco Cessation Counseling and Screening (12+) [code = Tobacco Cessation Counseling and Screening (12+)] [facility] Scheduled Test 2024-05-28 00:00:00 Tobacco Cessation Counseling and Screening (12+) [code = Tobacco Cessation Counseling and Screening (12+)] [facility] Scheduled Test 2024-05-28 00:00:00 Tobacco Cessation Counseling and Screening (12+) [code = Tobacco Cessation Counseling and Screening (12+)] [facility] Scheduled Test 2024-05-28 00:00:00 Tobacco Cessation Counseling and Screening (12+) [code = Tobacco Cessation Counseling and Screening (12+)] [facility] Scheduled Test 2024-05-28 00:00:00 Tobacco Cessation Counseling and Screening (12+) [code = Tobacco Cessation Counseling and Screening (12+)] [facility] Scheduled Test 2024-05-28 00:00:00 Tobacco Cessation Counseling and Screening (12+) [code = Tobacco Cessation Counseling and Screening (12+)] [facility] Scheduled Test 2024-05-28 00:00:00 Tobacco Cessation Counseling and Screening (12+) [code = Tobacco Cessation Counseling and Screening (12+)] [facility] Scheduled Test 2024-05-28 00:00:00 Tobacco Cessation Counseling and Screening (12+) [code = Tobacco Cessation Counseling and Screening (12+)] [facility] Scheduled Test 2024-05-28 00:00:00 Tobacco Cessation Counseling and Screening (12+) [code = Tobacco Cessation Counseling and Screening (12+)] [facility] Scheduled Test 2024-05-28 00:00:00 Tobacco Cessation Counseling and Screening (12+) [code = Tobacco Cessation Counseling and Screening (12+)] [facility] Scheduled Test 2024-05-28 00:00:00 Tobacco Cessation Counseling and Screening (12+) [code = Tobacco Cessation Counseling and Screening (12+)] [facility] Scheduled Test 2024-05-28 00:00:00 Tobacco Cessation Counseling and Screening (12+) [code = Tobacco Cessation Counseling and Screening (12+)] [facility] Scheduled Test 2024-05-28 00:00:00 Tobacco Cessation Counseling and Screening (12+) [code = Tobacco Cessation Counseling and Screening (12+)] [facility] Scheduled Test 2024-05-28 00:00:00 Tobacco Cessation Counseling and Screening (12+) [code = Tobacco Cessation Counseling and Screening (12+)] [facility] Scheduled Test 2024-05-28 00:00:00 Tobacco Cessation Counseling and Screening (12+) [code = Tobacco Cessation Counseling and Screening (12+)] [facility] Scheduled Test 2024-05-28 00:00:00 Tobacco Cessation Counseling and Screening (12+) [code = Tobacco Cessation Counseling and Screening (12+)] [facility] Scheduled Test 2024-05-26 00:00:00 Tobacco Cessation Counseling and Screening (12+) [code = Tobacco Cessation Counseling and Screening (12+)] [facility] Scheduled Test 2024-05-26 00:00:00 Tobacco Cessation Counseling and Screening (12+) [code = Tobacco Cessation Counseling and Screening (12+)] [facility] Scheduled Test 2024-03-20 00:00:00 Influenza Vaccine (Season Ended) [code = Influenza Vaccine (Season Ended)] [facility] Scheduled Test 2024-03-20 00:00:00 Influenza Vaccine (Season Ended) [code = Influenza Vaccine (Season Ended)] [facility] Scheduled Test 2024-03-20 00:00:00 Influenza Vaccine (Season Ended) [code = Influenza Vaccine (Season Ended)] [facility] Scheduled Test 2024-03-20 00:00:00 Influenza Vaccine (Season Ended) [code = Influenza Vaccine (Season Ended)] [facility] Scheduled Test 2024-03-20 00:00:00 Influenza Vaccine (Season Ended) [code = Influenza Vaccine (Season Ended)] [facility] Scheduled Test 2024-03-20 00:00:00 Influenza Vaccine (Season Ended) [code = Influenza Vaccine (Season Ended)] [facility] Scheduled Test 2024-03-20 00:00:00 Influenza Vaccine (Season Ended) [code = Influenza Vaccine (Season Ended)] [facility] Scheduled Test 2024-03-20 00:00:00 Influenza Vaccine (Season Ended) [code = Influenza Vaccine (Season Ended)] [facility] Scheduled Test 2024-03-20 00:00:00 Influenza Vaccine (Season Ended) [code = Influenza Vaccine (Season Ended)] [facility] Scheduled Test 2024-03-20 00:00:00 Influenza Vaccine (Season Ended) [code = Influenza Vaccine (Season Ended)] [facility] Scheduled Test 2023-07-20 00:00:00 DEPRESSION SCREENING (12+) [code = DEPRESSION SCREENING (12+)] [facility] Scheduled Test 2023-07-20 00:00:00 DEPRESSION SCREENING (12+) [code = DEPRESSION SCREENING (12+)] [facility] Scheduled Test 2023-07-20 00:00:00 DEPRESSION SCREENING (12+) [code = DEPRESSION SCREENING (12+)] [facility] Scheduled Test 2023-07-20 00:00:00 DEPRESSION SCREENING (12+) [code = DEPRESSION SCREENING (12+)] [facility] Scheduled Test 2023-07-20 00:00:00 DEPRESSION SCREENING (12+) [code = DEPRESSION SCREENING (12+)] [facility] Scheduled Test 2023-07-20 00:00:00 DEPRESSION SCREENING (12+) [code = DEPRESSION SCREENING (12+)] [facility] Scheduled Test 2023-07-20 00:00:00 DEPRESSION SCREENING (12+) [code = DEPRESSION SCREENING (12+)] [facility] Scheduled Test 2023-07-20 00:00:00 DEPRESSION SCREENING (12+) [code = DEPRESSION SCREENING (12+)] [facility] Scheduled Test 2023-07-20 00:00:00 DEPRESSION SCREENING (12+) [code = DEPRESSION SCREENING (12+)] [facility] Scheduled Test 2023-07-20 00:00:00 DEPRESSION SCREENING (12+) [code = DEPRESSION SCREENING (12+)] [facility] Scheduled Test 2023-07-20 00:00:00 DEPRESSION SCREENING (12+) [code = DEPRESSION SCREENING (12+)] [facility] Scheduled Test 2023-07-20 00:00:00 DEPRESSION SCREENING (12+) [code = DEPRESSION SCREENING (12+)] [facility] Scheduled Test 2023-07-20 00:00:00 DEPRESSION SCREENING (12+) [code = DEPRESSION SCREENING (12+)] [facility] Scheduled Test 2023-07-20 00:00:00 DEPRESSION SCREENING (12+) [code = DEPRESSION SCREENING (12+)] [facility] Scheduled Test 2023-07-20 00:00:00 DEPRESSION SCREENING (12+) [code = DEPRESSION SCREENING (12+)] [facility] Scheduled Test 2023-07-20 00:00:00 DEPRESSION SCREENING (12+) [code = DEPRESSION SCREENING (12+)] [facility] Scheduled Test 2023-07-20 00:00:00 DEPRESSION SCREENING (12+) [code = DEPRESSION SCREENING (12+)] [facility] Scheduled Test 2023-07-20 00:00:00 DEPRESSION SCREENING (12+) [code = DEPRESSION SCREENING (12+)] [facility] Scheduled Test 2023-07-20 00:00:00 DEPRESSION SCREENING (12+) [code = DEPRESSION SCREENING (12+)] [facility] Scheduled Test 2023-07-20 00:00:00 DEPRESSION SCREENING (12+) [code = DEPRESSION SCREENING (12+)] [facility] Scheduled Test 2023-07-20 00:00:00 DEPRESSION SCREENING (12+) [code = DEPRESSION SCREENING (12+)] [facility] Scheduled Test 2023-07-20 00:00:00 DEPRESSION SCREENING (12+) [code = DEPRESSION SCREENING (12+)] [facility] Scheduled Test 2023-07-20 00:00:00 DEPRESSION SCREENING (12+) [code = DEPRESSION SCREENING (12+)] [facility] Scheduled Test 2023-07-20 00:00:00 DEPRESSION SCREENING (12+) [code = DEPRESSION SCREENING (12+)] [facility] Scheduled Test 2023-07-20 00:00:00 DEPRESSION SCREENING (12+) [code = DEPRESSION SCREENING (12+)] [facility] Scheduled Test 2023-07-20 00:00:00 DEPRESSION SCREENING (12+) [code = DEPRESSION SCREENING (12+)] [facility] Scheduled Test 2023-07-20 00:00:00 DEPRESSION SCREENING (12+) [code = DEPRESSION SCREENING (12+)] [facility] Scheduled Test 2023-07-20 00:00:00 DEPRESSION SCREENING (12+) [code = DEPRESSION SCREENING (12+)] [facility] Scheduled Test 2023-07-20 00:00:00 DEPRESSION SCREENING (12+) [code = DEPRESSION SCREENING (12+)] [facility] Scheduled Test 2023-07-20 00:00:00 DEPRESSION SCREENING (12+) [code = DEPRESSION SCREENING (12+)] [facility] Scheduled Test 2023-07-20 00:00:00 DEPRESSION SCREENING (12+) [code = DEPRESSION SCREENING (12+)] [facility] Scheduled Test 2023-07-20 00:00:00 DEPRESSION SCREENING (12+) [code = DEPRESSION SCREENING (12+)] [facility] Scheduled Test 2023-07-20 00:00:00 DEPRESSION SCREENING (12+) [code = DEPRESSION SCREENING (12+)] [facility] Scheduled Test 2023-07-20 00:00:00 DEPRESSION SCREENING (12+) [code = DEPRESSION SCREENING (12+)] [facility] Scheduled Test 2023-07-20 00:00:00 DEPRESSION SCREENING (12+) [code = DEPRESSION SCREENING (12+)] [facility] Scheduled Test 2023-07-20 00:00:00 DEPRESSION SCREENING (12+) [code = DEPRESSION SCREENING (12+)] [facility] Scheduled Test 2023-07-20 00:00:00 DEPRESSION SCREENING (12+) [code = DEPRESSION SCREENING (12+)] [facility] Scheduled Test 2023-03-20 00:00:00 INFLUENZA VACCINE (Season Ended) [code = INFLUENZA VACCINE (Season Ended)] [facility] Scheduled Test 2023-03-20 00:00:00 INFLUENZA VACCINE (Season Ended) [code = INFLUENZA VACCINE (Season Ended)] [facility] Scheduled Test 2023-03-20 00:00:00 INFLUENZA VACCINE (Season Ended) [code = INFLUENZA VACCINE (Season Ended)] [facility] Scheduled Test 2023-03-20 00:00:00 INFLUENZA VACCINE (Season Ended) [code = INFLUENZA VACCINE (Season Ended)] [facility] Scheduled Test 2023-03-20 00:00:00 INFLUENZA VACCINE (Season Ended) [code = INFLUENZA VACCINE (Season Ended)] [facility] Scheduled Test 2023-03-20 00:00:00 INFLUENZA VACCINE (Season Ended) [code = INFLUENZA VACCINE (Season Ended)] [facility] Scheduled Test 2023-03-20 00:00:00 Influenza Vaccine (Season Ended) [code = Influenza Vaccine (Season Ended)] [facility] Scheduled Test 2023-03-20 00:00:00 Influenza Vaccine (Season Ended) [code = Influenza Vaccine (Season Ended)] [facility] Scheduled Test 2023-03-20 00:00:00 Influenza Vaccine (#1) [code = Influenza Vaccine (#1)] [facility] Scheduled Test 2023-03-20 00:00:00 Influenza Vaccine (#1) [code = Influenza Vaccine (#1)] [facility] Scheduled Test 2023-03-20 00:00:00 Influenza Vaccine (#1) [code = Influenza Vaccine (#1)] [facility] Scheduled Test 2023-03-20 00:00:00 Influenza Vaccine (#1) [code = Influenza Vaccine (#1)] [facility] Scheduled Test 2023-03-20 00:00:00 COVID-19 VACCINE ( season) [code = COVID-19 VACCINE ( season)] [facility] Scheduled Test 2023-03-20 00:00:00 Influenza Vaccine (#1) [code = Influenza Vaccine (#1)] [facility] Scheduled Test 2023-03-20 00:00:00 COVID-19 VACCINE ( season) [code = COVID-19 VACCINE ( season)] [facility] Scheduled Test 2023-03-20 00:00:00 Influenza Vaccine (#1) [code = Influenza Vaccine (#1)] [facility] Scheduled Test 2023-03-20 00:00:00 COVID-19 VACCINE ( season) [code = COVID-19 VACCINE ( season)] [facility] Scheduled Test 2023-03-20 00:00:00 Influenza Vaccine (#1) [code = Influenza Vaccine (#1)] [facility] Scheduled Test 2023-03-20 00:00:00 COVID-19 VACCINE ( season) [code = COVID-19 VACCINE ()] [facility] Scheduled Test 2023-03-20 00:00:00 Influenza Vaccine (#1) [code = Influenza Vaccine (#1)] [facility] Scheduled Test 2023-03-20 00:00:00 Influenza Vaccine (#1) [code = Influenza Vaccine (#1)] [facility] Scheduled Test 2023-03-20 00:00:00 COVID-19 VACCINE ( season) [code = COVID-19 VACCINE ( season)] [facility] Scheduled Test 2023-03-20 00:00:00 Influenza Vaccine (#1) [code = Influenza Vaccine (#1)] [facility] Scheduled Test 2023-03-20 00:00:00 COVID-19 VACCINE ( season) [code = COVID-19 VACCINE ( season)] [facility] Scheduled Test 2023-03-20 00:00:00 Influenza Vaccine (#1) [code = Influenza Vaccine (#1)] [facility] Scheduled Test 2023-03-20 00:00:00 COVID-19 VACCINE ( season) [code = COVID-19 VACCINE ()] [facility] Scheduled Test 2023-03-20 00:00:00 Influenza Vaccine (#1) [code = Influenza Vaccine (#1)] [facility] Scheduled Test 2023-03-20 00:00:00 COVID-19 VACCINE ( season) [code = COVID-19 VACCINE ( season)] [facility] Scheduled Test 2023-03-20 00:00:00 Influenza Vaccine (#1) [code = Influenza Vaccine (#1)] [facility] Scheduled Test 2023-03-20 00:00:00 COVID-19 VACCINE ( season) [code = COVID-19 VACCINE ()] [facility] Scheduled Test 2023-03-20 00:00:00 Influenza Vaccine (#1) [code = Influenza Vaccine (#1)] [facility] Scheduled Test 2023-03-20 00:00:00 COVID-19 VACCINE ( season) [code = COVID-19 VACCINE ()] [facility] Scheduled Test 2023-03-20 00:00:00 Influenza Vaccine (#1) [code = Influenza Vaccine (#1)] [facility] Scheduled Test 2023-03-20 00:00:00 COVID-19 VACCINE ( season) [code = COVID-19 VACCINE ( season)] [facility] Scheduled Test 2023-03-20 00:00:00 Influenza Vaccine (#1) [code = Influenza Vaccine (#1)] [facility] Scheduled Test 2023-03-20 00:00:00 Influenza Vaccine (#1) [code = Influenza Vaccine (#1)] [facility] Scheduled Test 2023-03-20 00:00:00 COVID-19 VACCINE ( season) [code = COVID-19 VACCINE ( season)] [facility] Scheduled Test 2023-03-20 00:00:00 Influenza Vaccine (#1) [code = Influenza Vaccine (#1)] [facility] Scheduled Test 2023-03-20 00:00:00 COVID-19 VACCINE ( season) [code = COVID-19 VACCINE ( season)] [facility] Scheduled Test 2023-03-20 00:00:00 Influenza Vaccine (#1) [code = Influenza Vaccine (#1)] [facility] Scheduled Test 2023-03-20 00:00:00 COVID-19 VACCINE ( season) [code = COVID-19 VACCINE ()] [facility] Scheduled Test 2023-03-20 00:00:00 Influenza Vaccine (#1) [code = Influenza Vaccine (#1)] [facility] Scheduled Test 2023-03-20 00:00:00 COVID-19 VACCINE ( season) [code = COVID-19 VACCINE ()] [facility] Scheduled Test 2023-03-20 00:00:00 Influenza Vaccine (#1) [code = Influenza Vaccine (#1)] [facility] Scheduled Test 2023-03-20 00:00:00 COVID-19 VACCINE ( season) [code = COVID-19 VACCINE ()] [facility] Scheduled Test 2023-03-20 00:00:00 Influenza Vaccine (#1) [code = Influenza Vaccine (#1)] [facility] Scheduled Test 2023-03-20 00:00:00 COVID-19 VACCINE ( season) [code = COVID-19 VACCINE ( season)] [facility] Scheduled Test 2023-03-20 00:00:00 Influenza Vaccine (#1) [code = Influenza Vaccine (#1)] [facility] Scheduled Test 2023-03-20 00:00:00 Influenza Vaccine (#1) [code = Influenza Vaccine (#1)] [facility] Scheduled Test 2023-03-20 00:00:00 COVID-19 VACCINE ( season) [code = COVID-19 VACCINE ()] [facility] Scheduled Test 2023-03-20 00:00:00 Influenza Vaccine (#1) [code = Influenza Vaccine (#1)] [facility] Scheduled Test 2023-03-20 00:00:00 COVID-19 VACCINE () [code = COVID-19 VACCINE ()] [facility] Scheduled Test 2023-03-20 00:00:00 Influenza Vaccine (#1) [code = Influenza Vaccine (#1)] [facility] Scheduled Test 2023-03-20 00:00:00 COVID-19 VACCINE () [code = COVID-19 VACCINE ()] [facility] Scheduled Test 2023-03-20 00:00:00 Influenza Vaccine (#1) [code = Influenza Vaccine (#1)] [facility] Scheduled Test 2023-03-20 00:00:00 COVID-19 VACCINE () [code = COVID-19 VACCINE ()] [facility] Scheduled Test 2023-03-20 00:00:00 Influenza Vaccine (#1) [code = Influenza Vaccine (#1)] [facility] Scheduled Test 2023-03-20 00:00:00 Influenza Vaccine (#1) [code = Influenza Vaccine (#1)] [facility] Scheduled Test 2023-03-20 00:00:00 COVID-19 VACCINE ( season) [code = COVID-19 VACCINE ()] [facility] Scheduled Test 2023-03-20 00:00:00 Influenza Vaccine (#1) [code = Influenza Vaccine (#1)] [facility] Scheduled Test 2023-03-20 00:00:00 COVID-19 VACCINE () [code = COVID-19 VACCINE ( season)] [facility] Scheduled Test 2023-03-20 00:00:00 Influenza Vaccine (#1) [code = Influenza Vaccine (#1)] [facility] Scheduled Test 2023-03-20 00:00:00 COVID-19 VACCINE ( season) [code = COVID-19 VACCINE ( season)] [facility] Scheduled Test 2023-03-20 00:00:00 Influenza Vaccine (#1) [code = Influenza Vaccine (#1)] [facility] Scheduled Test 2023-03-20 00:00:00 COVID-19 VACCINE ( season) [code = COVID-19 VACCINE ()] [facility] Scheduled Test 2023-03-20 00:00:00 Influenza Vaccine (#1) [code = Influenza Vaccine (#1)] [facility] Scheduled Test 2023-03-20 00:00:00 COVID-19 VACCINE ( season) [code = COVID-19 VACCINE ()] [facility] Scheduled Test 2023-03-20 00:00:00 Influenza Vaccine (#1) [code = Influenza Vaccine (#1)] [facility] Scheduled Test 2023-03-20 00:00:00 COVID-19 VACCINE ( season) [code = COVID-19 VACCINE ()] [facility] Scheduled Test 2023-03-20 00:00:00 Influenza Vaccine (#1) [code = Influenza Vaccine (#1)] [facility] Scheduled Test 2023-03-20 00:00:00 Influenza Vaccine (#1) [code = Influenza Vaccine (#1)] [facility] Scheduled Test 2023-03-20 00:00:00 COVID-19 VACCINE ( season) [code = COVID-19 VACCINE ()] [facility] Scheduled Test 2023-03-20 00:00:00 Influenza Vaccine (#1) [code = Influenza Vaccine (#1)] [facility] Scheduled Test 2023-03-20 00:00:00 COVID-19 VACCINE ( season) [code = COVID-19 VACCINE ()] [facility] Scheduled Test 2023-03-20 00:00:00 Influenza Vaccine (#1) [code = Influenza Vaccine (#1)] [facility] Scheduled Test 2023-03-20 00:00:00 COVID-19 VACCINE () [code = COVID-19 VACCINE ()] [facility] Scheduled Test 2023-03-20 00:00:00 COVID-19 VACCINE () [code = COVID-19 VACCINE ()] [facility] Scheduled Test 2023-03-20 00:00:00 COVID-19 VACCINE () [code = COVID-19 VACCINE ()] [facility] Scheduled Test 2023-03-20 00:00:00 COVID-19 VACCINE () [code = COVID-19 VACCINE ()] [facility] Scheduled Test 2023-03-20 00:00:00 COVID-19 VACCINE () [code = COVID-19 VACCINE ()] [facility] Scheduled Test 2023-03-20 00:00:00 COVID-19 VACCINE () [code = COVID-19 VACCINE ()] [facility] Scheduled Test 2023-03-20 00:00:00 Influenza Vaccine (#1) [code = Influenza Vaccine (#1)] [facility] Scheduled Test 2023-03-20 00:00:00 COVID-19 VACCINE ( season) [code = COVID-19 VACCINE ( season)] [facility] Scheduled Test 2023-03-20 00:00:00 COVID-19 VACCINE ( season) [code = COVID-19 VACCINE ( season)] [facility] Scheduled Test 2023-03-20 00:00:00 COVID-19 VACCINE ( season) [code = COVID-19 VACCINE ()] [facility] Scheduled Test 2023-03-20 00:00:00 COVID-19 VACCINE () [code = COVID-19 VACCINE ()] [facility] Scheduled Test 2023-03-20 00:00:00 Influenza Vaccine (#1) [code = Influenza Vaccine (#1)] [facility] Scheduled Test 2023-03-20 00:00:00 Influenza Vaccine (#1) [code = Influenza Vaccine (#1)] [facility] Scheduled Test 2023-03-20 00:00:00 Influenza Vaccine (#1) [code = Influenza Vaccine (#1)] [facility] Scheduled Test 2023-03-20 00:00:00 Influenza Vaccine (#1) [code = Influenza Vaccine (#1)] [facility] Scheduled Test 2023-03-20 00:00:00 Influenza Vaccine (#1) [code = Influenza Vaccine (#1)] [facility] Scheduled Test 2023-03-20 00:00:00 Influenza Vaccine (#1) [code = Influenza Vaccine (#1)] [facility] Scheduled Test 2023-03-20 00:00:00 Influenza Vaccine (#1) [code = Influenza Vaccine (#1)] [facility] Scheduled Test 2023-03-20 00:00:00 Influenza Vaccine (#1) [code = Influenza Vaccine (#1)] [facility] Scheduled Test 2023-03-20 00:00:00 Influenza Vaccine (#1) [code = Influenza Vaccine (#1)] [facility] Scheduled Test 2023-03-20 00:00:00 COVID-19 VACCINE ( season) [code = COVID-19 VACCINE ( season)] [facility] Scheduled Test 2022-07-20 00:00:00 DEPRESSION SCREENING (12+) [code = DEPRESSION SCREENING (12+)] [facility] Scheduled Test 2022-07-20 00:00:00 DEPRESSION SCREENING (12+) [code = DEPRESSION SCREENING (12+)] [facility] Scheduled Test 2022-07-20 00:00:00 DEPRESSION SCREENING (12+) [code = DEPRESSION SCREENING (12+)] [facility] Scheduled Test 2022-07-20 00:00:00 DEPRESSION SCREENING (12+) [code = DEPRESSION SCREENING (12+)] [facility] Scheduled Test 2022-07-20 00:00:00 DEPRESSION SCREENING (12+) [code = DEPRESSION SCREENING (12+)] [facility] Scheduled Test 2022-07-20 00:00:00 DEPRESSION SCREENING (12+) [code = DEPRESSION SCREENING (12+)] [facility] Scheduled Test 2022-07-20 00:00:00 DEPRESSION SCREENING (12+) [code = DEPRESSION SCREENING (12+)] [facility] Scheduled Test 2022-07-20 00:00:00 DEPRESSION SCREENING (12+) [code = DEPRESSION SCREENING (12+)] [facility] Scheduled Test 2022-07-20 00:00:00 DEPRESSION SCREENING (12+) [code = DEPRESSION SCREENING (12+)] [facility] Scheduled Test 2022-07-20 00:00:00 DEPRESSION SCREENING (12+) [code = DEPRESSION SCREENING (12+)] [facility] Scheduled Test 2022-07-20 00:00:00 DEPRESSION SCREENING (12+) [code = DEPRESSION SCREENING (12+)] [facility] Future Scheduled Test 2022-07-20 00:00:00 DEPRESSION SCREENING (12+) [code = DEPRESSION SCREENING (12+)] [facility] Future Scheduled Test 2022-07-20 00:00:00 DEPRESSION SCREENING (12+) [code = DEPRESSION SCREENING (12+)] [facility] Future Scheduled Test 2022-07-20 00:00:00 DEPRESSION SCREENING (12+) [code = DEPRESSION SCREENING (12+)] [facility] Future Scheduled Test 2022-07-20 00:00:00 DEPRESSION SCREENING (12+) [code = DEPRESSION SCREENING (12+)] [facility] Future Scheduled Test 2022-07-20 00:00:00 DEPRESSION SCREENING (12+) [code = DEPRESSION SCREENING (12+)] [facility] Future Scheduled Test 2022-07-20 00:00:00 DEPRESSION SCREENING (12+) [code = DEPRESSION SCREENING (12+)] [facility] Future Scheduled Test 2022-07-20 00:00:00 DEPRESSION SCREENING (12+) [code = DEPRESSION SCREENING (12+)] [facility] Future Scheduled Test 2022-07-20 00:00:00 DEPRESSION SCREENING (12+) [code = DEPRESSION SCREENING (12+)] [facility] Future Scheduled Test 2022-07-20 00:00:00 DEPRESSION SCREENING (12+) [code = DEPRESSION SCREENING (12+)] [facility] Future Scheduled Test 2022-07-20 00:00:00 DEPRESSION SCREENING (12+) [code = DEPRESSION SCREENING (12+)] [facility] Future Scheduled Test 2022-07-20 00:00:00 DEPRESSION SCREENING (12+) [code = DEPRESSION SCREENING (12+)] [facility] Future Scheduled Test 2022-07-20 00:00:00 DEPRESSION SCREENING (12+) [code = DEPRESSION SCREENING (12+)] [facility] Future Scheduled Test 2022-07-20 00:00:00 DEPRESSION SCREENING (12+) [code = DEPRESSION SCREENING (12+)] [facility] Future Scheduled Test 2022-07-20 00:00:00 DEPRESSION SCREENING (12+) [code = DEPRESSION SCREENING (12+)] [facility] Future Scheduled Test 2022-07-20 00:00:00 DEPRESSION SCREENING (12+) [code = DEPRESSION SCREENING (12+)] [facility] Future Scheduled Test 2022-07-20 00:00:00 DEPRESSION SCREENING (12+) [code = DEPRESSION SCREENING (12+)] [facility] Future Scheduled Test 2022-07-20 00:00:00 DEPRESSION SCREENING (12+) [code = DEPRESSION SCREENING (12+)] [facility] Future Scheduled Test 2022-07-20 00:00:00 DEPRESSION SCREENING (12+) [code = DEPRESSION SCREENING (12+)] [facility] Future Scheduled Test 2022-07-20 00:00:00 DEPRESSION SCREENING (12+) [code = DEPRESSION SCREENING (12+)] [facility] Future Scheduled Test 2022-07-20 00:00:00 DEPRESSION SCREENING (12+) [code = DEPRESSION SCREENING (12+)] [facility] Future Scheduled Test 2022-07-20 00:00:00 DEPRESSION SCREENING (12+) [code = DEPRESSION SCREENING (12+)] [facility] Future Scheduled Test 2022-07-20 00:00:00 DEPRESSION SCREENING (12+) [code = DEPRESSION SCREENING (12+)] [facility] Future Scheduled Test 2022-06-21 00:00:00 COVID-19 VACCINE (4 - Booster for Pfizer series) [code = COVID-19 VACCINE (4 - Booster for Pfizer series)] [facility] Future Scheduled Test 2022-06-21 00:00:00 COVID-19 VACCINE (4 - Booster for Pfizer series) [code = COVID-19 VACCINE (4 - Booster for Pfizer series)] [facility] Future Scheduled Test 2022-06-21 00:00:00 COVID-19 VACCINE (4 - Booster for Pfizer series) [code = COVID-19 VACCINE (4 - Booster for Pfizer series)] [facility] Future Scheduled Test 2022-06-21 00:00:00 COVID-19 VACCINE (4 - Booster for Pfizer series) [code = COVID-19 VACCINE (4 - Booster for Pfizer series)] [facility] Future Scheduled Test 2022-04-16 00:00:00 COVID-19 VACCINE (4 - Booster for Pfizer series) [code = COVID-19 VACCINE (4 - Booster for Pfizer series)] [facility] Future Scheduled Test 2022-04-16 00:00:00 COVID-19 VACCINE (4 - Booster for Pfizer series) [code = COVID-19 VACCINE (4 - Booster for Pfizer series)] [facility] Future Scheduled Test 2022-04-16 00:00:00 COVID-19 VACCINE (4 - Booster for Pfizer series) [code = COVID-19 VACCINE (4 - Booster for Pfizer series)] [facility] Future Scheduled Test 2022-04-16 00:00:00 COVID-19 VACCINE (4 - Booster for Pfizer series) [code = COVID-19 VACCINE (4 - Booster for Pfizer series)] [facility] Future Scheduled Test 2022-04-16 00:00:00 COVID-19 VACCINE (4 - Booster for Pfizer series) [code = COVID-19 VACCINE (4 - Booster for Pfizer series)] [facility] Future Scheduled Test 2022-04-16 00:00:00 COVID-19 VACCINE (4 - Booster for Pfizer series) [code = COVID-19 VACCINE (4 - Booster for Pfizer series)] [facility] Future Scheduled Test 2022-04-16 00:00:00 COVID-19 VACCINE (4 - Booster for Pfizer series) [code = COVID-19 VACCINE (4 - Booster for Pfizer series)] [facility] Future Scheduled Test 2022-04-16 00:00:00 COVID-19 VACCINE (4 - Booster for Pfizer series) [code = COVID-19 VACCINE (4 - Booster for Pfizer series)] [facility] Future Scheduled Test 2022-04-16 00:00:00 COVID-19 VACCINE (4 - Booster for Pfizer series) [code = COVID-19 VACCINE (4 - Booster for Pfizer series)] [facility] Future Scheduled Test 2022-04-16 00:00:00 COVID-19 VACCINE (4 - Booster for Pfizer series) [code = COVID-19 VACCINE (4 - Booster for Pfizer series)] [facility] Future Scheduled Test 2022-04-16 00:00:00 COVID-19 VACCINE (4 - Booster for Pfizer series) [code = COVID-19 VACCINE (4 - Booster for Pfizer series)] [facility] Future Scheduled Test 2022-04-16 00:00:00 COVID-19 VACCINE (4 - Booster for Pfizer series) [code = COVID-19 VACCINE (4 - Booster for Pfizer series)] [facility] Future Scheduled Test 2022-04-16 00:00:00 COVID-19 VACCINE (4 - Booster for Pfizer series) [code = COVID-19 VACCINE (4 - Booster for Pfizer series)] [facility] Future Scheduled Test 2022-04-16 00:00:00 COVID-19 VACCINE (4 - Booster for Pfizer series) [code = COVID-19 VACCINE (4 - Booster for Pfizer series)] [facility] Future Scheduled Test 2022-04-16 00:00:00 COVID-19 VACCINE (4 - Booster for Pfizer series) [code = COVID-19 VACCINE (4 - Booster for Pfizer series)] [facility] Future Scheduled Test 2022-04-16 00:00:00 COVID-19 VACCINE (4 - Booster for Pfizer series) [code = COVID-19 VACCINE (4 - Booster for Pfizer series)] [facility] Future Scheduled Test 2022-04-16 00:00:00 COVID-19 VACCINE (4 - Booster for Pfizer series) [code = COVID-19 VACCINE (4 - Booster for Pfizer series)] [facility] Future Scheduled Test 2022-04-16 00:00:00 COVID-19 VACCINE (4 - Booster for Pfizer series) [code = COVID-19 VACCINE (4 - Booster for Pfizer series)] [facility] Future Scheduled Test 2022-04-16 00:00:00 COVID-19 VACCINE (4 - Booster for Pfizer series) [code = COVID-19 VACCINE (4 - Booster for Pfizer series)] [facility] Future Scheduled Test 2022-04-16 00:00:00 COVID-19 VACCINE (4 - Booster for Pfizer series) [code = COVID-19 VACCINE (4 - Booster for Pfizer series)] [facility] Future Scheduled Test 2022-04-16 00:00:00 COVID-19 VACCINE (4 - Pfizer series) [code = COVID-19 VACCINE (4 - Pfizer series)] [facility] Future Scheduled Test 2022-04-16 00:00:00 COVID-19 VACCINE (4 - Pfizer series) [code = COVID-19 VACCINE (4 - Pfizer series)] [facility] Future Scheduled Test 2022-04-16 00:00:00 COVID-19 VACCINE (4 - Pfizer series) [code = COVID-19 VACCINE (4 - Pfizer series)] [facility] Future Scheduled Test 2022-04-16 00:00:00 COVID-19 VACCINE (4 - Pfizer series) [code = COVID-19 VACCINE (4 - Pfizer series)] [facility] Future Scheduled Test 2022-04-16 00:00:00 COVID-19 VACCINE (4 - Booster for Pfizer series) [code = COVID-19 VACCINE (4 - Booster for Pfizer series)] [facility] Future Scheduled Test 2022-04-16 00:00:00 COVID-19 VACCINE (4 - Pfizer series) [code = COVID-19 VACCINE (4 - Pfizer series)] [facility] Future Scheduled Test 2022-03-20 00:00:00 INFLUENZA VACCINE (#1) [code = INFLUENZA VACCINE (#1)] [facility] Future Scheduled Test 2022-03-20 00:00:00 INFLUENZA VACCINE (#1) [code = INFLUENZA VACCINE (#1)] [facility] Future Scheduled Test 2022-03-20 00:00:00 INFLUENZA VACCINE (#1) [code = INFLUENZA VACCINE (#1)] [facility] Future Scheduled Test 2022-03-20 00:00:00 INFLUENZA VACCINE (#1) [code = INFLUENZA VACCINE (#1)] [facility] Future Scheduled Test 2022-01-14 00:00:00 SHINGLES VACCINES (1 of 2) [code = SHINGLES VACCINES (1 of 2)] [facility] Future Scheduled Test 2022-01-14 00:00:00 SHINGLES VACCINES (1 of 2) [code = SHINGLES VACCINES (1 of 2)] [facility] Future Scheduled Test 2022-01-14 00:00:00 SHINGLES VACCINES (1 of 2) [code = SHINGLES VACCINES (1 of 2)] [facility] Future Scheduled Test 2022-01-14 00:00:00 SHINGLES VACCINES (1 of 2) [code = SHINGLES VACCINES (1 of 2)] [facility] Future Scheduled Test 2022-01-14 00:00:00 SHINGLES VACCINES (1 of 2) [code = SHINGLES VACCINES (1 of 2)] [facility] Future Scheduled Test 2022-01-14 00:00:00 SHINGLES VACCINES (1 of 2) [code = SHINGLES VACCINES (1 of 2)] [facility] Future Scheduled Test 2022-01-14 00:00:00 SHINGLES VACCINES (1 of 2) [code = SHINGLES VACCINES (1 of 2)] [facility] Future Scheduled Test 2022-01-14 00:00:00 SHINGLES VACCINES (1 of 2) [code = SHINGLES VACCINES (1 of 2)] [facility] Future Scheduled Test 2022-01-14 00:00:00 SHINGLES VACCINES (1 of 2) [code = SHINGLES VACCINES (1 of 2)] [facility] Future Scheduled Test 2022-01-14 00:00:00 SHINGLES VACCINES (1 of 2) [code = SHINGLES VACCINES (1 of 2)] [facility] Future Scheduled Test 2022-01-14 00:00:00 SHINGLES VACCINES (1 of 2) [code = SHINGLES VACCINES (1 of 2)] [facility] Future Scheduled Test 2022-01-14 00:00:00 SHINGLES VACCINES (1 of 2) [code = SHINGLES VACCINES (1 of 2)] [facility] Future Scheduled Test 2022-01-14 00:00:00 SHINGLES VACCINES (1 of 2) [code = SHINGLES VACCINES (1 of 2)] [facility] Future Scheduled Test 2022-01-14 00:00:00 SHINGLES VACCINES (1 of 2) [code = SHINGLES VACCINES (1 of 2)] [facility] Future Scheduled Test 2022-01-14 00:00:00 SHINGLES VACCINES (1 of 2) [code = SHINGLES VACCINES (1 of 2)] [facility] Future Scheduled Test 2022-01-14 00:00:00 Screening for malignant neoplasm of lung (procedure) [code = [id number]] [facility] Future Scheduled Test 2022-01-14 00:00:00 SHINGLES VACCINES (1 of 2) [code = SHINGLES VACCINES (1 of 2)] [facility] Future Scheduled Test 2022-01-14 00:00:00 Screening for malignant neoplasm of lung (procedure) [code = 416493984] [facility] Future Scheduled Test 2022-01-14 00:00:00 SHINGLES VACCINES (1 of 2) [code = SHINGLES VACCINES (1 of 2)] [facility] Future Scheduled Test 2022-01-14 00:00:00 Screening for malignant neoplasm of lung (procedure) [code = 724632200] [facility] Future Scheduled Test 2022-01-14 00:00:00 SHINGLES VACCINES (1 of 2) [code = SHINGLES VACCINES (1 of 2)] [facility] Future Scheduled Test 2022-01-14 00:00:00 Screening for malignant neoplasm of lung (procedure) [code = 150312515] [facility] Future Scheduled Test 2022-01-14 00:00:00 SHINGLES VACCINES (1 of 2) [code = SHINGLES VACCINES (1 of 2)] [facility] Future Scheduled Test 2022-01-14 00:00:00 Screening for malignant neoplasm of lung (procedure) [code = 180091550] [facility] Future Scheduled Test 2022-01-14 00:00:00 SHINGLES VACCINES (1 of 2) [code = SHINGLES VACCINES (1 of 2)] [facility] Future Scheduled Test 2022-01-14 00:00:00 Screening for malignant neoplasm of lung (procedure) [code = 123209988] [facility] Future Scheduled Test 2022-01-14 00:00:00 SHINGLES VACCINES (1 of 2) [code = SHINGLES VACCINES (1 of 2)] [facility] Future Scheduled Test 2022-01-14 00:00:00 Screening for malignant neoplasm of lung (procedure) [code = 360657819] [facility] Future Scheduled Test 2022-01-14 00:00:00 SHINGLES VACCINES (1 of 2) [code = SHINGLES VACCINES (1 of 2)] [facility] Future Scheduled Test 2022-01-14 00:00:00 Screening for malignant neoplasm of lung (procedure) [code = 979231495] [facility] Future Scheduled Test 2022-01-14 00:00:00 SHINGLES VACCINES (1 of 2) [code = SHINGLES VACCINES (1 of 2)] [facility] Future Scheduled Test 2022-01-14 00:00:00 Screening for malignant neoplasm of lung (procedure) [code = 154591514] [facility] Future Scheduled Test 2022-01-14 00:00:00 SHINGLES VACCINES (1 of 2) [code = SHINGLES VACCINES (1 of 2)] [facility] Future Scheduled Test 2022-01-14 00:00:00 Screening for malignant neoplasm of lung (procedure) [code = 023939079] [facility] Future Scheduled Test 2022-01-14 00:00:00 SHINGLES VACCINES (1 of 2) [code = SHINGLES VACCINES (1 of 2)] [facility] Future Scheduled Test 2022-01-14 00:00:00 Screening for malignant neoplasm of lung (procedure) [code = 618246158] [facility] Future Scheduled Test 2022-01-14 00:00:00 SHINGLES VACCINES (1 of 2) [code = SHINGLES VACCINES (1 of 2)] [facility] Future Scheduled Test 2022-01-14 00:00:00 Screening for malignant neoplasm of lung (procedure) [code = 961032296] [facility] Future Scheduled Test 2022-01-14 00:00:00 SHINGLES VACCINES (1 of 2) [code = SHINGLES VACCINES (1 of 2)] [facility] Future Scheduled Test 2022-01-14 00:00:00 Screening for malignant neoplasm of lung (procedure) [code = 270876999] [facility] Future Scheduled Test 2022-01-14 00:00:00 SHINGLES VACCINES (1 of 2) [code = SHINGLES VACCINES (1 of 2)] [facility] Future Scheduled Test 2022-01-14 00:00:00 Screening for malignant neoplasm of lung (procedure) [code = 972560825] [facility] Future Scheduled Test 2022-01-14 00:00:00 SHINGLES VACCINES (1 of 2) [code = SHINGLES VACCINES (1 of 2)] [facility] Future Scheduled Test 2022-01-14 00:00:00 Screening for malignant neoplasm of lung (procedure) [code = 777781085] [facility] Future Scheduled Test 2022-01-14 00:00:00 SHINGLES VACCINES (1 of 2) [code = SHINGLES VACCINES (1 of 2)] [facility] Future Scheduled Test 2022-01-14 00:00:00 Screening for malignant neoplasm of lung (procedure) [code = 397836709] [facility] Future Scheduled Test 2022-01-14 00:00:00 SHINGLES VACCINES (1 of 2) [code = SHINGLES VACCINES (1 of 2)] [facility] Future Scheduled Test 2022-01-14 00:00:00 Screening for malignant neoplasm of lung (procedure) [code = 024859216] [facility] Future Scheduled Test 2022-01-14 00:00:00 SHINGLES VACCINES (1 of 2) [code = SHINGLES VACCINES (1 of 2)] [facility] Future Scheduled Test 2022-01-14 00:00:00 Screening for malignant neoplasm of lung (procedure) [code = 522661883] [facility] Future Scheduled Test 2022-01-14 00:00:00 SHINGLES VACCINES (1 of 2) [code = SHINGLES VACCINES (1 of 2)] [facility] Future Scheduled Test 2022-01-14 00:00:00 Screening for malignant neoplasm of lung (procedure) [code = 794790477] [facility] Future Scheduled Test 2022-01-14 00:00:00 Screening for malignant neoplasm of lung (procedure) [code = 228144734] [facility] Future Scheduled Test 2022-01-14 00:00:00 SHINGLES VACCINES (1 of 2) [code = SHINGLES VACCINES (1 of 2)] [facility] Future Scheduled Test 2022-01-14 00:00:00 SHINGLES VACCINES (1 of 2) [code = SHINGLES VACCINES (1 of 2)] [facility] Future Scheduled Test 2022-01-14 00:00:00 Screening for malignant neoplasm of lung (procedure) [code = 828108541] [facility] Future Scheduled Test 2022-01-14 00:00:00 SHINGLES VACCINES (1 of 2) [code = SHINGLES VACCINES (1 of 2)] [facility] Future Scheduled Test 2022-01-14 00:00:00 Screening for malignant neoplasm of lung (procedure) [code = 963121105] [facility] Future Scheduled Test 2022-01-14 00:00:00 SHINGLES VACCINES (1 of 2) [code = SHINGLES VACCINES (1 of 2)] [facility] Future Scheduled Test 2022-01-14 00:00:00 Screening for malignant neoplasm of lung (procedure) [code = 328727012] [facility] Future Scheduled Test 2022-01-14 00:00:00 SHINGLES VACCINES (1 of 2) [code = SHINGLES VACCINES (1 of 2)] [facility] Future Scheduled Test 2022-01-14 00:00:00 Screening for malignant neoplasm of lung (procedure) [code = 570063358] [facility] Future Scheduled Test 2022-01-14 00:00:00 Screening for malignant neoplasm of lung (procedure) [code = 467607409] [facility] Future Scheduled Test 2022-01-14 00:00:00 SHINGLES VACCINES (1 of 2) [code = SHINGLES VACCINES (1 of 2)] [facility] Future Scheduled Test 2022-01-14 00:00:00 SHINGLES VACCINES (1 of 2) [code = SHINGLES VACCINES (1 of 2)] [facility] Future Scheduled Test 2022-01-14 00:00:00 Screening for malignant neoplasm of lung (procedure) [code = 970581138] [facility] Future Scheduled Test 2022-01-14 00:00:00 SHINGLES VACCINES (1 of 2) [code = SHINGLES VACCINES (1 of 2)] [facility] Future Scheduled Test 2022-01-14 00:00:00 Screening for malignant neoplasm of lung (procedure) [code = 016468798] [facility] Future Scheduled Test 2022-01-14 00:00:00 SHINGLES VACCINES (1 of 2) [code = SHINGLES VACCINES (1 of 2)] [facility] Future Scheduled Test 2022-01-14 00:00:00 Screening for malignant neoplasm of lung (procedure) [code = 455035679] [facility] Future Scheduled Test 2022-01-14 00:00:00 SHINGLES VACCINES (1 of 2) [code = SHINGLES VACCINES (1 of 2)] [facility] Future Scheduled Test 2022-01-14 00:00:00 Screening for malignant neoplasm of lung (procedure) [code = 175732292] [facility] Future Scheduled Test 2022-01-14 00:00:00 SHINGLES VACCINES (1 of 2) [code = SHINGLES VACCINES (1 of 2)] [facility] Future Scheduled Test 2022-01-14 00:00:00 Screening for malignant neoplasm of lung (procedure) [code = 305042348] [facility] Future Scheduled Test 2022-01-14 00:00:00 SHINGLES VACCINES (1 of 2) [code = SHINGLES VACCINES (1 of 2)] [facility] Future Scheduled Test 2022-01-14 00:00:00 Screening for malignant neoplasm of lung (procedure) [code = 924562524] [facility] Future Scheduled Test 2022-01-14 00:00:00 Screening for malignant neoplasm of lung (procedure) [code = 544017645] [facility] Future Scheduled Test 2022-01-14 00:00:00 SHINGLES VACCINES (1 of 2) [code = SHINGLES VACCINES (1 of 2)] [facility] Future Scheduled Test 2022-01-14 00:00:00 SHINGLES VACCINES (1 of 2) [code = SHINGLES VACCINES (1 of 2)] [facility] Future Scheduled Test 2022-01-14 00:00:00 Screening for malignant neoplasm of lung (procedure) [code = 235649601] [facility] Future Scheduled Test 2022-01-14 00:00:00 SHINGLES VACCINES (1 of 2) [code = SHINGLES VACCINES (1 of 2)] [facility] Scheduled Test 2022-01-14 00:00:00 Screening for malignant neoplasm of lung (procedure) [code = 069907803] [facility] Future Scheduled Test 2022-01-14 00:00:00 SHINGLES VACCINES (1 of 2) [code = SHINGLES VACCINES (1 of 2)] [facility] Future Scheduled Test 2022-01-14 00:00:00 Screening for malignant neoplasm of lung (procedure) [code = 831976133] [facility] Scheduled Test 2022-01-14 00:00:00 SHINGLES VACCINES (1 of 2) [code = SHINGLES VACCINES (1 of 2)] [facility] Future Scheduled Test 2022-01-14 00:00:00 Screening for malignant neoplasm of lung (procedure) [code = 911608972] [facility] Future Scheduled Test 2022-01-14 00:00:00 SHINGLES VACCINES (1 of 2) [code = SHINGLES VACCINES (1 of 2)] [facility] Future Scheduled Test 2022-01-14 00:00:00 Screening for malignant neoplasm of lung (procedure) [code = 828873115] [facility] Scheduled Test 2022-01-14 00:00:00 SHINGLES VACCINES (1 of 2) [code = SHINGLES VACCINES (1 of 2)] [facility] Future Scheduled Test 2022-01-14 00:00:00 Screening for malignant neoplasm of lung (procedure) [code = 089982731] [facility] Future Scheduled Test 2022-01-14 00:00:00 SHINGLES VACCINES (1 of 2) [code = SHINGLES VACCINES (1 of 2)] [facility] Future Scheduled Test 2022-01-14 00:00:00 Screening for malignant neoplasm of lung (procedure) [code = 940612367] [facility] Future Scheduled Test 2022-01-14 00:00:00 SHINGLES VACCINES (1 of 2) [code = SHINGLES VACCINES (1 of 2)] [facility] Scheduled Test 2022-01-14 00:00:00 Screening for malignant neoplasm of lung (procedure) [code = 732834235] [facility] Future Scheduled Test 2022-01-14 00:00:00 SHINGLES VACCINES (1 of 2) [code = SHINGLES VACCINES (1 of 2)] [facility] Future Scheduled Test 2022-01-14 00:00:00 Screening for malignant neoplasm of lung (procedure) [code = 763572584] [facility] Future Scheduled Test 2022-01-14 00:00:00 SHINGLES VACCINES (1 of 2) [code = SHINGLES VACCINES (1 of 2)] [facility] Future Scheduled Test 2022-01-14 00:00:00 Screening for malignant neoplasm of lung (procedure) [code = 556532964] [facility] Future Scheduled Test 2022-01-14 00:00:00 SHINGLES VACCINES (1 of 2) [code = SHINGLES VACCINES (1 of 2)] [facility] Future Scheduled Test 2022-01-14 00:00:00 Screening for malignant neoplasm of lung (procedure) [code = 527240227] [facility] Future Scheduled Test 2022-01-14 00:00:00 SHINGLES VACCINES (1 of 2) [code = SHINGLES VACCINES (1 of 2)] [facility] Future Scheduled Test 2022-01-14 00:00:00 Screening for malignant neoplasm of lung (procedure) [code = 416423846] [facility] Future Scheduled Test 2022-01-14 00:00:00 SHINGLES VACCINES (1 of 2) [code = SHINGLES VACCINES (1 of 2)] [facility] Future Scheduled Test 2022-01-14 00:00:00 Screening for malignant neoplasm of lung (procedure) [code = 663580738] [facility] Future Scheduled Test 2022-01-14 00:00:00 SHINGLES VACCINES (1 of 2) [code = SHINGLES VACCINES (1 of 2)] [facility] Future Scheduled Test 2022-01-14 00:00:00 Screening for malignant neoplasm of lung (procedure) [code = 933326421] [facility] Future Scheduled Test 2022-01-14 00:00:00 SHINGLES VACCINES (1 of 2) [code = SHINGLES VACCINES (1 of 2)] [facility] Future Scheduled Test 2022-01-14 00:00:00 SHINGLES VACCINES (1 of 2) [code = SHINGLES VACCINES (1 of 2)] [facility] Future Scheduled Test 2022-01-14 00:00:00 SHINGLES VACCINES (1 of 2) [code = SHINGLES VACCINES (1 of 2)] [facility] Future Scheduled Test 2022-01-14 00:00:00 Screening for malignant neoplasm of lung (procedure) [code = 505014298] [facility] Future Scheduled Test 2022-01-14 00:00:00 SHINGLES VACCINES (1 of 2) [code = SHINGLES VACCINES (1 of 2)] [facility] Future Scheduled Test 2022-01-14 00:00:00 Screening for malignant neoplasm of lung (procedure) [code = 257123175] [facility] Future Scheduled Test 2022-01-14 00:00:00 SHINGLES VACCINES (1 of 2) [code = SHINGLES VACCINES (1 of 2)] [facility] Future Scheduled Test 2022-01-14 00:00:00 Screening for malignant neoplasm of lung (procedure) [code = 376748927] [facility] Future Scheduled Test 2022-01-14 00:00:00 SHINGLES VACCINES (1 of 2) [code = SHINGLES VACCINES (1 of 2)] [facility] Future Scheduled Test 2022-01-14 00:00:00 Screening for malignant neoplasm of lung (procedure) [code = [id number]] [facility] Future Scheduled Test 2022-01-14 00:00:00 SHINGLES VACCINES (1 of 2) [code = SHINGLES VACCINES (1 of 2)] [facility] Future Scheduled Test 2022-01-14 00:00:00 Screening for malignant neoplasm of lung (procedure) [code = [id number]] [facility] Future Scheduled Test 2022-01-14 00:00:00 SHINGLES VACCINES (1 of 2) [code = SHINGLES VACCINES (1 of 2)] [facility] Future Scheduled Test 2022-01-14 00:00:00 Screening for malignant neoplasm of lung (procedure) [code = [id number]] [facility] Future Scheduled Test 2022-01-14 00:00:00 SHINGLES VACCINES (1 of 2) [code = SHINGLES VACCINES (1 of 2)] [facility] Future Scheduled Test 2022-01-14 00:00:00 Screening for malignant neoplasm of lung (procedure) [code = [id number]] [facility] Future Scheduled Test 2022-01-14 00:00:00 SHINGLES VACCINES (1 of 2) [code = SHINGLES VACCINES (1 of 2)] [facility] Future Scheduled Test 2013-12-15 00:00:00 PNEUMOCOCCAL VACCINE 0-64 YRS (2 - PCV) [code = PNEUMOCOCCAL VACCINE 0-64 YRS (2 - PCV)] [facility] Future Scheduled Test 2013-12-15 00:00:00 PNEUMOCOCCAL VACCINE 0-64 YRS (2 - PCV) [code = PNEUMOCOCCAL VACCINE 0-64 YRS (2 - PCV)] [facility] Future Scheduled Test 2013-12-15 00:00:00 PNEUMOCOCCAL VACCINE 0-64 YRS (2 - PCV) [code = PNEUMOCOCCAL VACCINE 0-64 YRS (2 - PCV)] [facility] Future Scheduled Test 2013-12-15 00:00:00 PNEUMOCOCCAL VACCINE 0-64 YRS (2 - PCV) [code = PNEUMOCOCCAL VACCINE 0-64 YRS (2 - PCV)] [facility] Future Scheduled Test 2013-12-15 00:00:00 Pneumococcal Vaccine: 0-64 Years (2 - PCV) [code = Pneumococcal Vaccine: 0-64 Years (2 - PCV)] [facility] Future Scheduled Test 2013-12-15 00:00:00 Pneumococcal Vaccine: 0-64 Years (2 - PCV) [code = Pneumococcal Vaccine: 0-64 Years (2 - PCV)] [facility] Future Scheduled Test 2013-12-15 00:00:00 Pneumococcal Vaccine: 0-64 Years (2 - PCV) [code = Pneumococcal Vaccine: 0-64 Years (2 - PCV)] [facility] Future Scheduled Test 2013-12-15 00:00:00 Pneumococcal Vaccine: 0-64 Years (2 - PCV) [code = Pneumococcal Vaccine: 0-64 Years (2 - PCV)] [facility] Future Scheduled Test 2013-12-15 00:00:00 Pneumococcal Vaccine: 0-64 Years (2 - PCV) [code = Pneumococcal Vaccine: 0-64 Years (2 - PCV)] [facility] Future Scheduled Test 2013-12-15 00:00:00 Pneumococcal Vaccine: 0-64 Years (2 - PCV) [code = Pneumococcal Vaccine: 0-64 Years (2 - PCV)] [facility] Future Scheduled Test 2013-12-15 00:00:00 Pneumococcal Vaccine: 0-64 Years (2 - PCV) [code = Pneumococcal Vaccine: 0-64 Years (2 - PCV)] [facility] Future Scheduled Test 2013-12-15 00:00:00 Pneumococcal Vaccine: 0-64 Years (2 - PCV) [code = Pneumococcal Vaccine: 0-64 Years (2 - PCV)] [facility] Future Scheduled Test 2013-12-15 00:00:00 Pneumococcal Vaccine: 0-64 Years (2 - PCV) [code = Pneumococcal Vaccine: 0-64 Years (2 - PCV)] [facility] Future Scheduled Test 2013-12-15 00:00:00 Pneumococcal Vaccine: 0-64 Years (2 - PCV) [code = Pneumococcal Vaccine: 0-64 Years (2 - PCV)] [facility] Future Scheduled Test 2013-12-15 00:00:00 Pneumococcal Vaccine: 0-64 Years (2 - PCV) [code = Pneumococcal Vaccine: 0-64 Years (2 - PCV)] [facility] Future Scheduled Test 2013-12-15 00:00:00 Pneumococcal Vaccine: 0-64 Years (2 - PCV) [code = Pneumococcal Vaccine: 0-64 Years (2 - PCV)] [facility] Future Scheduled Test 2013-12-15 00:00:00 Pneumococcal Vaccine: 0-64 Years (2 - PCV) [code = Pneumococcal Vaccine: 0-64 Years (2 - PCV)] [facility] Future Scheduled Test 2013-12-15 00:00:00 Pneumococcal Vaccine: 0-64 Years (2 - PCV) [code = Pneumococcal Vaccine: 0-64 Years (2 - PCV)] [facility] Future Scheduled Test 2013-12-15 00:00:00 Pneumococcal Vaccine: 0-64 Years (2 - PCV) [code = Pneumococcal Vaccine: 0-64 Years (2 - PCV)] [facility] Future Scheduled Test 2013-12-15 00:00:00 Pneumococcal Vaccine: 0-64 Years (2 - PCV) [code = Pneumococcal Vaccine: 0-64 Years (2 - PCV)] [facility] Future Scheduled Test 2013-12-15 00:00:00 Pneumococcal Vaccine: 0-64 Years (2 - PCV) [code = Pneumococcal Vaccine: 0-64 Years (2 - PCV)] [facility] Future Scheduled Test 2013-12-15 00:00:00 Pneumococcal Vaccine: 0-64 Years (2 - PCV) [code = Pneumococcal Vaccine: 0-64 Years (2 - PCV)] [facility] Future Scheduled Test 2013-12-15 00:00:00 Pneumococcal Vaccine: 0-64 Years (2 - PCV) [code = Pneumococcal Vaccine: 0-64 Years (2 - PCV)] [facility] Future Scheduled Test 2013-12-15 00:00:00 Pneumococcal Vaccine: 0-64 Years (2 - PCV) [code = Pneumococcal Vaccine: 0-64 Years (2 - PCV)] [facility] Future Scheduled Test 2013-12-15 00:00:00 Pneumococcal Vaccine: 0-64 Years (2 of 2 - PCV) [code = Pneumococcal Vaccine: 0-64 Years (2 of 2 - PCV)] [facility] Future Scheduled Test 2013-12-15 00:00:00 Pneumococcal Vaccine: 0-64 Years (2 of 2 - PCV) [code = Pneumococcal Vaccine: 0-64 Years (2 of 2 - PCV)] [facility] Future Scheduled Test 2013-12-15 00:00:00 Pneumococcal Vaccine: 0-64 Years (2 of 2 - PCV) [code = Pneumococcal Vaccine: 0-64 Years (2 of 2 - PCV)] [facility] Future Scheduled Test 2013-12-15 00:00:00 Pneumococcal Vaccine: 0-64 Years (2 of 2 - PCV) [code = Pneumococcal Vaccine: 0-64 Years (2 of 2 - PCV)] [facility] Future Scheduled Test 2013-12-15 00:00:00 Pneumococcal Vaccine: 0-64 Years (2 of 2 - PCV) [code = Pneumococcal Vaccine: 0-64 Years (2 of 2 - PCV)] [facility] Future Scheduled Test 2013-12-15 00:00:00 Pneumococcal Vaccine: 0-64 Years (2 of 2 - PCV) [code = Pneumococcal Vaccine: 0-64 Years (2 of 2 - PCV)] [facility] Future Scheduled Test 2013-12-15 00:00:00 Pneumococcal Vaccine: 0-64 Years (2 of 2 - PCV) [code = Pneumococcal Vaccine: 0-64 Years (2 of 2 - PCV)] [facility] Future Scheduled Test 2013-12-15 00:00:00 Pneumococcal Vaccine: 0-64 Years (2 of 2 - PCV) [code = Pneumococcal Vaccine: 0-64 Years (2 of 2 - PCV)] [facility] Future Scheduled Test 2013-12-15 00:00:00 Pneumococcal Vaccine: 0-64 Years (2 of 2 - PCV) [code = Pneumococcal Vaccine: 0-64 Years (2 of 2 - PCV)] [facility] Future Scheduled Test 2013-12-15 00:00:00 Pneumococcal Vaccine: 0-64 Years (2 of 2 - PCV) [code = Pneumococcal Vaccine: 0-64 Years (2 of 2 - PCV)] [facility] Future Scheduled Test 2013-12-15 00:00:00 Pneumococcal Vaccine: 0-64 Years (2 of 2 - PCV) [code = Pneumococcal Vaccine: 0-64 Years (2 of 2 - PCV)] [facility] Future Scheduled Test 2013-12-15 00:00:00 Pneumococcal Vaccine: 0-64 Years (2 of 2 - PCV) [code = Pneumococcal Vaccine: 0-64 Years (2 of 2 - PCV)] [facility] Future Scheduled Test 2013-12-15 00:00:00 Pneumococcal Vaccine: 0-64 Years (2 of 2 - PCV) [code = Pneumococcal Vaccine: 0-64 Years (2 of 2 - PCV)] [facility] Future Scheduled Test 2013-12-15 00:00:00 Pneumococcal Vaccine: 0-64 Years (2 of 2 - PCV) [code = Pneumococcal Vaccine: 0-64 Years (2 of 2 - PCV)] [facility] Future Scheduled Test 2013-12-15 00:00:00 Pneumococcal Vaccine: 0-64 Years (2 of 2 - PCV) [code = Pneumococcal Vaccine: 0-64 Years (2 of 2 - PCV)] [facility] Future Scheduled Test 2013-12-15 00:00:00 Pneumococcal Vaccine: 0-64 Years (2 of 2 - PCV) [code = Pneumococcal Vaccine: 0-64 Years (2 of 2 - PCV)] [facility] Future Scheduled Test 2013-12-15 00:00:00 Pneumococcal Vaccine: 0-64 Years (2 of 2 - PCV) [code = Pneumococcal Vaccine: 0-64 Years (2 of 2 - PCV)] [facility] Future Scheduled Test 2013-12-15 00:00:00 Pneumococcal Vaccine: 0-64 Years (2 of 2 - PCV) [code = Pneumococcal Vaccine: 0-64 Years (2 of 2 - PCV)] [facility] Future Scheduled Test 2013-12-15 00:00:00 Pneumococcal Vaccine: 0-64 Years (2 of 2 - PCV) [code = Pneumococcal Vaccine: 0-64 Years (2 of 2 - PCV)] [facility] Future Scheduled Test 2013-12-15 00:00:00 Pneumococcal Vaccine: 0-64 Years (2 - PCV) [code = Pneumococcal Vaccine: 0-64 Years (2 - PCV)] [facility] Future Scheduled Test 2013-12-15 00:00:00 Pneumococcal Vaccine: 0-64 Years (2 - PCV) [code = Pneumococcal Vaccine: 0-64 Years (2 - PCV)] [facility] Future Scheduled Test 2013-12-15 00:00:00 Pneumococcal Vaccine: 0-64 Years (2 - PCV) [code = Pneumococcal Vaccine: 0-64 Years (2 - PCV)] [facility] Future Scheduled Test 1993-01-14 00:00:00 Screening for malignant neoplasm of cervix (procedure) [code = [id number]] [facility] Future Scheduled Test 1993-01-14 00:00:00 Screening for malignant neoplasm of cervix (procedure) [code = [id number]] [facility] Future Scheduled Test 1993-01-14 00:00:00 Screening for malignant neoplasm of cervix (procedure) [code = [id number]] [facility] Future Scheduled Test 1993-01-14 00:00:00 Screening for malignant neoplasm of cervix (procedure) [code = [id number]] [facility] Future Scheduled Test 1993-01-14 00:00:00 Screening for malignant neoplasm of cervix (procedure) [code = [id number]] [facility] Future Scheduled Test 1993-01-14 00:00:00 Screening for malignant neoplasm of cervix (procedure) [code = [id number]] [facility] Future Scheduled Test 1993-01-14 00:00:00 Screening for malignant neoplasm of cervix (procedure) [code = 230735139] [facility] Future Scheduled Test 1993-01-14 00:00:00 Screening for malignant neoplasm of cervix (procedure) [code = [id number]] [facility] Future Scheduled Test 1993-01-14 00:00:00 Screening for malignant neoplasm of cervix (procedure) [code = [id number]] [facility] Future Scheduled Test 1993-01-14 00:00:00 Screening for malignant neoplasm of cervix (procedure) [code = 104754482] [facility] Future Scheduled Test 1993-01-14 00:00:00 Screening for malignant neoplasm of cervix (procedure) [code = 489643634] [facility] Future Scheduled Test 1993-01-14 00:00:00 Screening for malignant neoplasm of cervix (procedure) [code = [id number]] [facility] Future Scheduled Test 1993-01-14 00:00:00 Screening for malignant neoplasm of cervix (procedure) [code = 594037003] [facility] Future Scheduled Test 1993-01-14 00:00:00 Screening for malignant neoplasm of cervix (procedure) [code = 408739421] [facility] Future Scheduled Test 1993-01-14 00:00:00 Screening for malignant neoplasm of cervix (procedure) [code = [id number]] [facility] Future Scheduled Test 1993-01-14 00:00:00 Screening for malignant neoplasm of cervix (procedure) [code = 011457067] [facility] Future Scheduled Test 1993-01-14 00:00:00 Screening for malignant neoplasm of cervix (procedure) [code = 568088886] [facility] Future Scheduled Test 1993-01-14 00:00:00 Screening for malignant neoplasm of cervix (procedure) [code = 428559963] [facility] Future Scheduled Test 1993-01-14 00:00:00 Screening for malignant neoplasm of cervix (procedure) [code = 333992647] [facility] Future Scheduled Test 1993-01-14 00:00:00 Screening for malignant neoplasm of cervix (procedure) [code = 904372420] [facility] Future Scheduled Test 1993-01-14 00:00:00 Screening for malignant neoplasm of cervix (procedure) [code = [id number]] [facility] Future Scheduled Test 1993-01-14 00:00:00 Screening for malignant neoplasm of cervix (procedure) [code = [id number]] [facility] Future Scheduled Test 1993-01-14 00:00:00 Screening for malignant neoplasm of cervix (procedure) [code = 864464348] [facility] Future Scheduled Test 1993-01-14 00:00:00 Screening for malignant neoplasm of cervix (procedure) [code = 491536022] [facility] Future Scheduled Test 1993-01-14 00:00:00 Screening for malignant neoplasm of cervix (procedure) [code = 637899700] [facility] Future Scheduled Test 1993-01-14 00:00:00 Screening for malignant neoplasm of cervix (procedure) [code = [id number]] [facility] Future Scheduled Test 1993-01-14 00:00:00 Screening for malignant neoplasm of cervix (procedure) [code = 166043000] [facility] Future Scheduled Test 1993-01-14 00:00:00 Screening for malignant neoplasm of cervix (procedure) [code = 871499935] [facility] Future Scheduled Test 1993-01-14 00:00:00 Screening for malignant neoplasm of cervix (procedure) [code = 549890116] [facility] Future Scheduled Test 1993-01-14 00:00:00 Screening for malignant neoplasm of cervix (procedure) [code = 922698729] [facility] Future Scheduled Test 1993-01-14 00:00:00 Screening for malignant neoplasm of cervix (procedure) [code = 920861786] [facility] Future Scheduled Test 1993-01-14 00:00:00 Screening for malignant neoplasm of cervix (procedure) [code = 980048117] [facility] Future Scheduled Test 1993-01-14 00:00:00 Screening for malignant neoplasm of cervix (procedure) [code = 766876840] [facility] Future Scheduled Test 1993-01-14 00:00:00 Screening for malignant neoplasm of cervix (procedure) [code = 502542375] [facility] Future Scheduled Test 1993-01-14 00:00:00 Screening for malignant neoplasm of cervix (procedure) [code = 972888988] [facility] Future Scheduled Test 1993-01-14 00:00:00 Screening for malignant neoplasm of cervix (procedure) [code = 448740320] [facility] Future Scheduled Test 1993-01-14 00:00:00 Screening for malignant neoplasm of cervix (procedure) [code = 144513497] [facility] Future Scheduled Test 1993-01-14 00:00:00 Screening for malignant neoplasm of cervix (procedure) [code = 842865311] [facility] Future Scheduled Test 1993-01-14 00:00:00 Screening for malignant neoplasm of cervix (procedure) [code = 696495005] [facility] Future Scheduled Test 1993-01-14 00:00:00 Screening for malignant neoplasm of cervix (procedure) [code = 052065374] [facility] Future Scheduled Test 1993-01-14 00:00:00 Screening for malignant neoplasm of cervix (procedure) [code = 697161246] [facility] Future Scheduled Test 1993-01-14 00:00:00 Screening for malignant neoplasm of cervix (procedure) [code = 186700751] [facility] Future Scheduled Test 1993-01-14 00:00:00 Screening for malignant neoplasm of cervix (procedure) [code = 124033499] [facility] Future Scheduled Test 1993-01-14 00:00:00 Screening for malignant neoplasm of cervix (procedure) [code = 535598834] [facility] Future Scheduled Test 1993-01-14 00:00:00 Screening for malignant neoplasm of cervix (procedure) [code = 986485896] [facility] Future Scheduled Test 1993-01-14 00:00:00 Screening for malignant neoplasm of cervix (procedure) [code = 065438072] [facility] Future Scheduled Test 1993-01-14 00:00:00 Screening for malignant neoplasm of cervix (procedure) [code = 559958133] [facility] Future Scheduled Test 1993-01-14 00:00:00 Screening for malignant neoplasm of cervix (procedure) [code = 400396937] [facility] Future Scheduled Test 1993-01-14 00:00:00 Screening for malignant neoplasm of cervix (procedure) [code = 215604958] [facility] Future Scheduled Test 1993-01-14 00:00:00 Screening for malignant neoplasm of cervix (procedure) [code = 450138721] [facility] Future Scheduled Test 1993-01-14 00:00:00 Screening for malignant neoplasm of cervix (procedure) [code = 040223365] [facility] Future Scheduled Test 1993-01-14 00:00:00 Screening for malignant neoplasm of cervix (procedure) [code = 773156162] [facility] Future Scheduled Test 1993-01-14 00:00:00 Screening for malignant neoplasm of cervix (procedure) [code = 307040830] [facility] Future Scheduled Test 1993-01-14 00:00:00 Screening for malignant neoplasm of cervix (procedure) [code = 647263981] [facility] Future Scheduled Test 1993-01-14 00:00:00 Screening for malignant neoplasm of cervix (procedure) [code = 597473554] [facility] Future Scheduled Test 1993-01-14 00:00:00 Screening for malignant neoplasm of cervix (procedure) [code = 691812919] [facility] Future Scheduled Test 1993-01-14 00:00:00 Screening for malignant neoplasm of cervix (procedure) [code = 979148336] [facility] Future Scheduled Test 1993-01-14 00:00:00 Screening for malignant neoplasm of cervix (procedure) [code = 386238961] [facility] Future Scheduled Test 1993-01-14 00:00:00 Screening for malignant neoplasm of cervix (procedure) [code = 519057858] [facility] Future Scheduled Test 1993-01-14 00:00:00 Screening for malignant neoplasm of cervix (procedure) [code = 567144840] [facility] Future Scheduled Test 1993-01-14 00:00:00 Screening for malignant neoplasm of cervix (procedure) [code = 305290663] [facility] Future Scheduled Test 1993-01-14 00:00:00 Screening for malignant neoplasm of cervix (procedure) [code = 450495160] [facility] Future Scheduled Test 1993-01-14 00:00:00 Screening for malignant neoplasm of cervix (procedure) [code = 935924865] [facility] Future Scheduled Test 1993-01-14 00:00:00 Screening for malignant neoplasm of cervix (procedure) [code = 133921502] [facility] Future Scheduled Test 1993-01-14 00:00:00 Screening for malignant neoplasm of cervix (procedure) [code = 112426123] [facility] Future Scheduled Test 1993-01-14 00:00:00 Screening for malignant neoplasm of cervix (procedure) [code = [id number]] [facility] Future Scheduled Test 1993-01-14 00:00:00 Screening for malignant neoplasm of cervix (procedure) [code = [id number]] [facility] Future Scheduled Test 1993-01-14 00:00:00 Screening for malignant neoplasm of cervix (procedure) [code = 973027010] [facility] Future Scheduled Test 1993-01-14 00:00:00 Screening for malignant neoplasm of cervix (procedure) [code = [id number]] [facility] Future Scheduled Test 1993-01-14 00:00:00 Screening for malignant neoplasm of cervix (procedure) [code = [id number]] [facility] Future Scheduled Test 1991-01-14 00:00:00 DTAP/TDAP/TD VACCINES (1 - Tdap) [code = DTAP/TDAP/TD VACCINES (1 - Tdap)] [facility] Future Scheduled Test 1991-01-14 00:00:00 DTAP/TDAP/TD VACCINES (1 - Tdap) [code = DTAP/TDAP/TD VACCINES (1 - Tdap)] [facility] Future Scheduled Test 1991-01-14 00:00:00 DTAP/TDAP/TD VACCINES (1 - Tdap) [code = DTAP/TDAP/TD VACCINES (1 - Tdap)] [facility] Future Scheduled Test 1991-01-14 00:00:00 DTAP/TDAP/TD VACCINES (1 - Tdap) [code = DTAP/TDAP/TD VACCINES (1 - Tdap)] [facility] Future Scheduled Test 1991-01-14 00:00:00 DTAP/TDAP/TD VACCINES (1 - Tdap) [code = DTAP/TDAP/TD VACCINES (1 - Tdap)] [facility] Future Scheduled Test 1991-01-14 00:00:00 DTAP/TDAP/TD VACCINES (1 - Tdap) [code = DTAP/TDAP/TD VACCINES (1 - Tdap)] [facility] Future Scheduled Test 1991-01-14 00:00:00 DTAP/TDAP/TD VACCINES (1 - Tdap) [code = DTAP/TDAP/TD VACCINES (1 - Tdap)] [facility] Future Scheduled Test 1991-01-14 00:00:00 DTAP/TDAP/TD VACCINES (1 - Tdap) [code = DTAP/TDAP/TD VACCINES (1 - Tdap)] [facility] Future Scheduled Test 1991-01-14 00:00:00 DTAP/TDAP/TD VACCINES (1 - Tdap) [code = DTAP/TDAP/TD VACCINES (1 - Tdap)] [facility] Future Scheduled Test 1991-01-14 00:00:00 DTAP/TDAP/TD VACCINES (1 - Tdap) [code = DTAP/TDAP/TD VACCINES (1 - Tdap)] [facility] Future Scheduled Test 1991-01-14 00:00:00 DTAP/TDAP/TD VACCINES (1 - Tdap) [code = DTAP/TDAP/TD VACCINES (1 - Tdap)] [facility] Future Scheduled Test 1991-01-14 00:00:00 DTAP/TDAP/TD VACCINES (1 - Tdap) [code = DTAP/TDAP/TD VACCINES (1 - Tdap)] [facility] Future Scheduled Test 1991-01-14 00:00:00 DTAP/TDAP/TD VACCINES (1 - Tdap) [code = DTAP/TDAP/TD VACCINES (1 - Tdap)] [facility] Future Scheduled Test 1991-01-14 00:00:00 DTAP/TDAP/TD VACCINES (1 - Tdap) [code = DTAP/TDAP/TD VACCINES (1 - Tdap)] [facility] Future Scheduled Test 1991-01-14 00:00:00 DTAP/TDAP/TD VACCINES (1 - Tdap) [code = DTAP/TDAP/TD VACCINES (1 - Tdap)] [facility] Future Scheduled Test 1991-01-14 00:00:00 DTAP/TDAP/TD VACCINES (1 - Tdap) [code = DTAP/TDAP/TD VACCINES (1 - Tdap)] [facility] Future Scheduled Test 1991-01-14 00:00:00 DTAP/TDAP/TD VACCINES (1 - Tdap) [code = DTAP/TDAP/TD VACCINES (1 - Tdap)] [facility] Future Scheduled Test 1991-01-14 00:00:00 DTAP/TDAP/TD VACCINES (1 - Tdap) [code = DTAP/TDAP/TD VACCINES (1 - Tdap)] [facility] Future Scheduled Test 1991-01-14 00:00:00 DTAP/TDAP/TD VACCINES (1 - Tdap) [code = DTAP/TDAP/TD VACCINES (1 - Tdap)] [facility] Future Scheduled Test 1991-01-14 00:00:00 DTAP/TDAP/TD VACCINES (1 - Tdap) [code = DTAP/TDAP/TD VACCINES (1 - Tdap)] [facility] Future Scheduled Test 1991-01-14 00:00:00 DTAP/TDAP/TD VACCINES (1 - Tdap) [code = DTAP/TDAP/TD VACCINES (1 - Tdap)] [facility] Future Scheduled Test 1991-01-14 00:00:00 DTAP/TDAP/TD VACCINES (1 - Tdap) [code = DTAP/TDAP/TD VACCINES (1 - Tdap)] [facility] Future Scheduled Test 1991-01-14 00:00:00 DTAP/TDAP/TD VACCINES (1 - Tdap) [code = DTAP/TDAP/TD VACCINES (1 - Tdap)] [facility] Future Scheduled Test 1991-01-14 00:00:00 DTAP/TDAP/TD VACCINES (1 - Tdap) [code = DTAP/TDAP/TD VACCINES (1 - Tdap)] [facility] Future Scheduled Test 1991-01-14 00:00:00 DTAP/TDAP/TD VACCINES (1 - Tdap) [code = DTAP/TDAP/TD VACCINES (1 - Tdap)] [facility] Future Scheduled Test 1991-01-14 00:00:00 DTAP/TDAP/TD VACCINES (1 - Tdap) [code = DTAP/TDAP/TD VACCINES (1 - Tdap)] [facility] Future Scheduled Test 1991-01-14 00:00:00 DTAP/TDAP/TD VACCINES (1 - Tdap) [code = DTAP/TDAP/TD VACCINES (1 - Tdap)] [facility] Future Scheduled Test 1991-01-14 00:00:00 DTAP/TDAP/TD VACCINES (1 - Tdap) [code = DTAP/TDAP/TD VACCINES (1 - Tdap)] [facility] Future Scheduled Test 1991-01-14 00:00:00 DTAP/TDAP/TD VACCINES (1 - Tdap) [code = DTAP/TDAP/TD VACCINES (1 - Tdap)] [facility] Future Scheduled Test 1991-01-14 00:00:00 DTAP/TDAP/TD VACCINES (1 - Tdap) [code = DTAP/TDAP/TD VACCINES (1 - Tdap)] [facility] Future Scheduled Test 1991-01-14 00:00:00 DTAP/TDAP/TD VACCINES (1 - Tdap) [code = DTAP/TDAP/TD VACCINES (1 - Tdap)] [facility] Future Scheduled Test 1991-01-14 00:00:00 DTAP/TDAP/TD VACCINES (1 - Tdap) [code = DTAP/TDAP/TD VACCINES (1 - Tdap)] [facility] Future Scheduled Test 1991-01-14 00:00:00 DTAP/TDAP/TD VACCINES (1 - Tdap) [code = DTAP/TDAP/TD VACCINES (1 - Tdap)] [facility] Future Scheduled Test 1991-01-14 00:00:00 DTAP/TDAP/TD VACCINES (1 - Tdap) [code = DTAP/TDAP/TD VACCINES (1 - Tdap)] [facility] Future Scheduled Test 1991-01-14 00:00:00 DTAP/TDAP/TD VACCINES (1 - Tdap) [code = DTAP/TDAP/TD VACCINES (1 - Tdap)] [facility] Future Scheduled Test 1991-01-14 00:00:00 DTAP/TDAP/TD VACCINES (1 - Tdap) [code = DTAP/TDAP/TD VACCINES (1 - Tdap)] [facility] Future Scheduled Test 1991-01-14 00:00:00 DTAP/TDAP/TD VACCINES (1 - Tdap) [code = DTAP/TDAP/TD VACCINES (1 - Tdap)] [facility] Future Scheduled Test 1991-01-14 00:00:00 DTAP/TDAP/TD VACCINES (1 - Tdap) [code = DTAP/TDAP/TD VACCINES (1 - Tdap)] [facility] Future Scheduled Test 1991-01-14 00:00:00 DTAP/TDAP/TD VACCINES (1 - Tdap) [code = DTAP/TDAP/TD VACCINES (1 - Tdap)] [facility] Future Scheduled Test 1991-01-14 00:00:00 DTAP/TDAP/TD VACCINES (1 - Tdap) [code = DTAP/TDAP/TD VACCINES (1 - Tdap)] [facility] Future Scheduled Test 1991-01-14 00:00:00 DTAP/TDAP/TD VACCINES (1 - Tdap) [code = DTAP/TDAP/TD VACCINES (1 - Tdap)] [facility] Future Scheduled Test 1991-01-14 00:00:00 DTAP/TDAP/TD VACCINES (1 - Tdap) [code = DTAP/TDAP/TD VACCINES (1 - Tdap)] [facility] Future Scheduled Test 1991-01-14 00:00:00 DTAP/TDAP/TD VACCINES (1 - Tdap) [code = DTAP/TDAP/TD VACCINES (1 - Tdap)] [facility] Future Scheduled Test 1991-01-14 00:00:00 DTAP/TDAP/TD VACCINES (1 - Tdap) [code = DTAP/TDAP/TD VACCINES (1 - Tdap)] [facility] Future Scheduled Test 1991-01-14 00:00:00 DTAP/TDAP/TD VACCINES (1 - Tdap) [code = DTAP/TDAP/TD VACCINES (1 - Tdap)] [facility] Future Scheduled Test 1991-01-14 00:00:00 DTAP/TDAP/TD VACCINES (1 - Tdap) [code = DTAP/TDAP/TD VACCINES (1 - Tdap)] [facility] Future Scheduled Test 1991-01-14 00:00:00 DTAP/TDAP/TD VACCINES (1 - Tdap) [code = DTAP/TDAP/TD VACCINES (1 - Tdap)] [facility] Future Scheduled Test 1991-01-14 00:00:00 DTAP/TDAP/TD VACCINES (1 - Tdap) [code = DTAP/TDAP/TD VACCINES (1 - Tdap)] [facility] Future Scheduled Test 1991-01-14 00:00:00 DTAP/TDAP/TD VACCINES (1 - Tdap) [code = DTAP/TDAP/TD VACCINES (1 - Tdap)] [facility] Future Scheduled Test 1991-01-14 00:00:00 DTAP/TDAP/TD VACCINES (1 - Tdap) [code = DTAP/TDAP/TD VACCINES (1 - Tdap)] [facility] Future Scheduled Test 1991-01-14 00:00:00 DTAP/TDAP/TD VACCINES (1 - Tdap) [code = DTAP/TDAP/TD VACCINES (1 - Tdap)] [facility] Future Scheduled Test 1991-01-14 00:00:00 DTAP/TDAP/TD VACCINES (1 - Tdap) [code = DTAP/TDAP/TD VACCINES (1 - Tdap)] [facility] Future Scheduled Test 1991-01-14 00:00:00 DTAP/TDAP/TD VACCINES (1 - Tdap) [code = DTAP/TDAP/TD VACCINES (1 - Tdap)] [facility] Future Scheduled Test 1991-01-14 00:00:00 DTAP/TDAP/TD VACCINES (1 - Tdap) [code = DTAP/TDAP/TD VACCINES (1 - Tdap)] [facility] Future Scheduled Test 1991-01-14 00:00:00 DTAP/TDAP/TD VACCINES (1 - Tdap) [code = DTAP/TDAP/TD VACCINES (1 - Tdap)] [facility] Future Scheduled Test 1991-01-14 00:00:00 DTAP/TDAP/TD VACCINES (1 - Tdap) [code = DTAP/TDAP/TD VACCINES (1 - Tdap)] [facility] Future Scheduled Test 1991-01-14 00:00:00 DTAP/TDAP/TD VACCINES (1 - Tdap) [code = DTAP/TDAP/TD VACCINES (1 - Tdap)] [facility] Future Scheduled Test 1991-01-14 00:00:00 DTAP/TDAP/TD VACCINES (1 - Tdap) [code = DTAP/TDAP/TD VACCINES (1 - Tdap)] [facility] Future Scheduled Test 1991-01-14 00:00:00 DTAP/TDAP/TD VACCINES (1 - Tdap) [code = DTAP/TDAP/TD VACCINES (1 - Tdap)] [facility] Future Scheduled Test 1991-01-14 00:00:00 DTAP/TDAP/TD VACCINES (1 - Tdap) [code = DTAP/TDAP/TD VACCINES (1 - Tdap)] [facility] Future Scheduled Test 1991-01-14 00:00:00 DTAP/TDAP/TD VACCINES (1 - Tdap) [code = DTAP/TDAP/TD VACCINES (1 - Tdap)] [facility] Future Scheduled Test 1991-01-14 00:00:00 DTAP/TDAP/TD VACCINES (1 - Tdap) [code = DTAP/TDAP/TD VACCINES (1 - Tdap)] [facility] Future Scheduled Test 1991-01-14 00:00:00 DTAP/TDAP/TD VACCINES (1 - Tdap) [code = DTAP/TDAP/TD VACCINES (1 - Tdap)] [facility] Future Scheduled Test 1991-01-14 00:00:00 DTAP/TDAP/TD VACCINES (1 - Tdap) [code = DTAP/TDAP/TD VACCINES (1 - Tdap)] [facility] Future Scheduled Test 1991-01-14 00:00:00 DTAP/TDAP/TD VACCINES (1 - Tdap) [code = DTAP/TDAP/TD VACCINES (1 - Tdap)] [facility] Future Scheduled Test 1991-01-14 00:00:00 DTAP/TDAP/TD VACCINES (1 - Tdap) [code = DTAP/TDAP/TD VACCINES (1 - Tdap)] [facility] Future Scheduled Test 1991-01-14 00:00:00 DTAP/TDAP/TD VACCINES (1 - Tdap) [code = DTAP/TDAP/TD VACCINES (1 - Tdap)] [facility] Future Scheduled Test 1991-01-14 00:00:00 DTAP/TDAP/TD VACCINES (1 - Tdap) [code = DTAP/TDAP/TD VACCINES (1 - Tdap)] [facility] Future Scheduled Test 1991-01-14 00:00:00 DTAP/TDAP/TD VACCINES (1 - Tdap) [code = DTAP/TDAP/TD VACCINES (1 - Tdap)] [facility] Future Scheduled Test 1991-01-14 00:00:00 DTAP/TDAP/TD VACCINES (1 - Tdap) [code = DTAP/TDAP/TD VACCINES (1 - Tdap)] [facility] Future Scheduled Test 1990-01-14 00:00:00 HEPATITIS C SCREENING [code = HEPATITIS C SCREENING] [facility] Future Scheduled Test 1990-01-14 00:00:00 HEPATITIS C SCREENING [code = HEPATITIS C SCREENING] [facility] Future Scheduled Test 1990-01-14 00:00:00 HEPATITIS C SCREENING [code = HEPATITIS C SCREENING] [facility] Future Scheduled Test 1990-01-14 00:00:00 HEPATITIS C SCREENING [code = HEPATITIS C SCREENING] [facility] Future Scheduled Test 1990-01-14 00:00:00 HEPATITIS C SCREENING [code = HEPATITIS C SCREENING] [facility] Future Scheduled Test 1990-01-14 00:00:00 HEPATITIS C SCREENING [code = HEPATITIS C SCREENING] [facility] Future Scheduled Test 1990-01-14 00:00:00 HEPATITIS C SCREENING [code = HEPATITIS C SCREENING] [facility] Future Scheduled Test 1990-01-14 00:00:00 HEPATITIS C SCREENING [code = HEPATITIS C SCREENING] [facility] Future Scheduled Test 1990-01-14 00:00:00 HEPATITIS C SCREENING [code = HEPATITIS C SCREENING] [facility] Future Scheduled Test 1990-01-14 00:00:00 HEPATITIS C SCREENING [code = HEPATITIS C SCREENING] [facility] Future Scheduled Test 1990-01-14 00:00:00 HEPATITIS C SCREENING [code = HEPATITIS C SCREENING] [facility] Future Scheduled Test 1990-01-14 00:00:00 HEPATITIS C SCREENING [code = HEPATITIS C SCREENING] [facility] Future Scheduled Test 1990-01-14 00:00:00 HEPATITIS C SCREENING [code = HEPATITIS C SCREENING] [facility] Future Scheduled Test 1990-01-14 00:00:00 HEPATITIS C SCREENING [code = HEPATITIS C SCREENING] [facility] Future Scheduled Test 1990-01-14 00:00:00 HEPATITIS C SCREENING [code = HEPATITIS C SCREENING] [facility] Future Scheduled Test 1990-01-14 00:00:00 HEPATITIS C SCREENING [code = HEPATITIS C SCREENING] [facility] Future Scheduled Test 1990-01-14 00:00:00 HEPATITIS C SCREENING [code = HEPATITIS C SCREENING] [facility] Future Scheduled Test 1990-01-14 00:00:00 HEPATITIS C SCREENING [code = HEPATITIS C SCREENING] [facility] Future Scheduled Test 1990-01-14 00:00:00 HEPATITIS C SCREENING [code = HEPATITIS C SCREENING] [facility] Future Scheduled Test 1990-01-14 00:00:00 HEPATITIS C SCREENING [code = HEPATITIS C SCREENING] [facility] Future Scheduled Test 1990-01-14 00:00:00 HEPATITIS C SCREENING [code = HEPATITIS C SCREENING] [facility] Future Scheduled Test 1990-01-14 00:00:00 HEPATITIS C SCREENING [code = HEPATITIS C SCREENING] [facility] Future Scheduled Test 1990-01-14 00:00:00 HEPATITIS C SCREENING [code = HEPATITIS C SCREENING] [facility] Future Scheduled Test 1990-01-14 00:00:00 HEPATITIS C SCREENING [code = HEPATITIS C SCREENING] [facility] Future Scheduled Test 1990-01-14 00:00:00 HEPATITIS C SCREENING [code = HEPATITIS C SCREENING] [facility] Future Scheduled Test 1990-01-14 00:00:00 HEPATITIS C SCREENING [code = HEPATITIS C SCREENING] [facility] Future Scheduled Test 1990-01-14 00:00:00 HEPATITIS C SCREENING [code = HEPATITIS C SCREENING] [facility] Future Scheduled Test 1990-01-14 00:00:00 HEPATITIS C SCREENING [code = HEPATITIS C SCREENING] [facility] Future Scheduled Test 1990-01-14 00:00:00 HEPATITIS C SCREENING [code = HEPATITIS C SCREENING] [facility] Future Scheduled Test 1990-01-14 00:00:00 HEPATITIS C SCREENING [code = HEPATITIS C SCREENING] [facility] Future Scheduled Test 1990-01-14 00:00:00 HEPATITIS C SCREENING [code = HEPATITIS C SCREENING] [facility] Future Scheduled Test 1990-01-14 00:00:00 HEPATITIS C SCREENING [code = HEPATITIS C SCREENING] [facility] Future Scheduled Test 1990-01-14 00:00:00 HEPATITIS C SCREENING [code = HEPATITIS C SCREENING] [facility] Future Scheduled Test 1990-01-14 00:00:00 HEPATITIS C SCREENING [code = HEPATITIS C SCREENING] [facility] Future Scheduled Test 1990-01-14 00:00:00 HEPATITIS C SCREENING [code = HEPATITIS C SCREENING] [facility] Future Scheduled Test 1990-01-14 00:00:00 HEPATITIS C SCREENING [code = HEPATITIS C SCREENING] [facility] Future Scheduled Test 1990-01-14 00:00:00 HEPATITIS C SCREENING [code = HEPATITIS C SCREENING] [facility] Future Scheduled Test 1990-01-14 00:00:00 HEPATITIS C SCREENING [code = HEPATITIS C SCREENING] [facility] Future Scheduled Test 1990-01-14 00:00:00 HEPATITIS C SCREENING [code = HEPATITIS C SCREENING] [facility] Future Scheduled Test 1990-01-14 00:00:00 HEPATITIS C SCREENING [code = HEPATITIS C SCREENING] [facility] Future Scheduled Test 1990-01-14 00:00:00 HEPATITIS C SCREENING [code = HEPATITIS C SCREENING] [facility] Future Scheduled Test 1990-01-14 00:00:00 HEPATITIS C SCREENING [code = HEPATITIS C SCREENING] [facility] Future Scheduled Test 1990-01-14 00:00:00 HEPATITIS C SCREENING [code = HEPATITIS C SCREENING] [facility] Future Scheduled Test 1990-01-14 00:00:00 HEPATITIS C SCREENING [code = HEPATITIS C SCREENING] [facility] Future Scheduled Test 1990-01-14 00:00:00 HEPATITIS C SCREENING [code = HEPATITIS C SCREENING] [facility] Future Scheduled Test 1990-01-14 00:00:00 HEPATITIS C SCREENING [code = HEPATITIS C SCREENING] [facility] Future Scheduled Test 1990-01-14 00:00:00 HEPATITIS C SCREENING [code = HEPATITIS C SCREENING] [facility] Future Scheduled Test 1990-01-14 00:00:00 HEPATITIS C SCREENING [code = HEPATITIS C SCREENING] [facility] Future Scheduled Test 1990-01-14 00:00:00 HEPATITIS C SCREENING [code = HEPATITIS C SCREENING] [facility] Future Scheduled Test 1990-01-14 00:00:00 HEPATITIS C SCREENING [code = HEPATITIS C SCREENING] [facility] Future Scheduled Test 1990-01-14 00:00:00 HEPATITIS C SCREENING [code = HEPATITIS C SCREENING] [facility] Future Scheduled Test 1990-01-14 00:00:00 HEPATITIS C SCREENING [code = HEPATITIS C SCREENING] [facility] Future Scheduled Test 1990-01-14 00:00:00 HEPATITIS C SCREENING [code = HEPATITIS C SCREENING] [facility] Future Scheduled Test 1990-01-14 00:00:00 HEPATITIS C SCREENING [code = HEPATITIS C SCREENING] [facility] Future Scheduled Test 1990-01-14 00:00:00 HEPATITIS C SCREENING [code = HEPATITIS C SCREENING] [facility] Future Scheduled Test 1990-01-14 00:00:00 HEPATITIS C SCREENING [code = HEPATITIS C SCREENING] [facility] Future Scheduled Test 1990-01-14 00:00:00 HEPATITIS C SCREENING [code = HEPATITIS C SCREENING] [facility] Future Scheduled Test 1990-01-14 00:00:00 HEPATITIS C SCREENING [code = HEPATITIS C SCREENING] [facility] Future Scheduled Test 1990-01-14 00:00:00 HEPATITIS C SCREENING [code = HEPATITIS C SCREENING] [facility] Future Scheduled Test 1990-01-14 00:00:00 HEPATITIS C SCREENING [code = HEPATITIS C SCREENING] [facility] Future Scheduled Test 1990-01-14 00:00:00 HEPATITIS C SCREENING [code = HEPATITIS C SCREENING] [facility] Future Scheduled Test 1990-01-14 00:00:00 HEPATITIS C SCREENING [code = HEPATITIS C SCREENING] [facility] Future Scheduled Test 1990-01-14 00:00:00 HEPATITIS C SCREENING [code = HEPATITIS C SCREENING] [facility] Future Scheduled Test 1990-01-14 00:00:00 HEPATITIS C SCREENING [code = HEPATITIS C SCREENING] [facility] Future Scheduled Test 1990-01-14 00:00:00 HEPATITIS C SCREENING [code = HEPATITIS C SCREENING] [facility] Future Scheduled Test 1990-01-14 00:00:00 HEPATITIS C SCREENING [code = HEPATITIS C SCREENING] [facility] Future Scheduled Test 1990-01-14 00:00:00 HEPATITIS C SCREENING [code = HEPATITIS C SCREENING] [facility] Future Scheduled Test 1990-01-14 00:00:00 HEPATITIS C SCREENING [code = HEPATITIS C SCREENING] [facility] Future Scheduled Test 1990-01-14 00:00:00 HEPATITIS C SCREENING [code = HEPATITIS C SCREENING] [facility] Future Scheduled Test 1990-01-14 00:00:00 HEPATITIS C SCREENING [code = HEPATITIS C SCREENING] [facility] Future Scheduled Test 1987-01-14 00:00:00 Human immunodeficiency virus screening (procedure) [code = 581502041] [facility] Future Scheduled Test 1987-01-14 00:00:00 Human immunodeficiency virus screening (procedure) [code = 134634065] [facility] Future Scheduled Test 1984 00:00:00 Tobacco Cessation Counseling and Screening (12+) [code = Tobacco Cessation Counseling and Screening (12+)] [facility] Future Scheduled Test 1984 00:00:00 Tobacco Cessation Counseling and Screening (12+) [code = Tobacco Cessation Counseling and Screening (12+)] [facility] Scheduled Test 1984 00:00:00 Tobacco Cessation Counseling and Screening (12+) [code = Tobacco Cessation Counseling and Screening (12+)] [facility] Scheduled Test 1984 00:00:00 Tobacco Cessation Counseling and Screening (12+) [code = Tobacco Cessation Counseling and Screening (12+)] [facility] Scheduled Test 1984 00:00:00 Tobacco Cessation Counseling and Screening (12+) [code = Tobacco Cessation Counseling and Screening (12+)] [facility] Scheduled Test 1984 00:00:00 Tobacco Cessation Counseling and Screening (12+) [code = Tobacco Cessation Counseling and Screening (12+)] [facility] Future Scheduled Test 1984 00:00:00 Tobacco Cessation Counseling and Screening (12+) [code = Tobacco Cessation Counseling and Screening (12+)] [facility] Future Scheduled Test 1984 00:00:00 Tobacco Cessation Counseling and Screening (12+) [code = Tobacco Cessation Counseling and Screening (12+)] [facility] Future Scheduled Test 1984 00:00:00 Tobacco Cessation Counseling and Screening (12+) [code = Tobacco Cessation Counseling and Screening (12+)] [facility] Future Scheduled Test 1984 00:00:00 Tobacco Cessation Counseling and Screening (12+) [code = Tobacco Cessation Counseling and Screening (12+)] [facility] Future Scheduled Test 1984 00:00:00 Tobacco Cessation Counseling and Screening (12+) [code = Tobacco Cessation Counseling and Screening (12+)] [facility] Future Scheduled Test 1984 00:00:00 Tobacco Cessation Counseling and Screening (12+) [code = Tobacco Cessation Counseling and Screening (12+)] [facility] Scheduled Test 1984 00:00:00 Tobacco Cessation Counseling and Screening (12+) [code = Tobacco Cessation Counseling and Screening (12+)] [facility] Future Scheduled Test 1984 00:00:00 Tobacco Cessation Counseling and Screening (12+) [code = Tobacco Cessation Counseling and Screening (12+)] [facility] Scheduled Test 1984 00:00:00 Tobacco Cessation Counseling and Screening (12+) [code = Tobacco Cessation Counseling and Screening (12+)] [facility] Scheduled Test 1984 00:00:00 Tobacco Cessation Counseling and Screening (12+) [code = Tobacco Cessation Counseling and Screening (12+)] [facility] Scheduled Test 1984 00:00:00 Tobacco Cessation Counseling and Screening (12+) [code = Tobacco Cessation Counseling and Screening (12+)] [facility] Scheduled Test 1984 00:00:00 Tobacco Cessation Counseling and Screening (12+) [code = Tobacco Cessation Counseling and Screening (12+)] [facility] Future Scheduled Test 1984 00:00:00 Tobacco Cessation Counseling and Screening (12+) [code = Tobacco Cessation Counseling and Screening (12+)] [facility] Future Scheduled Test 1984 00:00:00 Tobacco Cessation Counseling and Screening (12+) [code = Tobacco Cessation Counseling and Screening (12+)] [facility] Future Scheduled Test 1984 00:00:00 Tobacco Cessation Counseling and Screening (12+) [code = Tobacco Cessation Counseling and Screening (12+)] [facility] Future Scheduled Test 1984 00:00:00 Tobacco Cessation Counseling and Screening (12+) [code = Tobacco Cessation Counseling and Screening (12+)] [facility] Future Scheduled Test 1984 00:00:00 Tobacco Cessation Counseling and Screening (12+) [code = Tobacco Cessation Counseling and Screening (12+)] [facility] Future Scheduled Test 1972 00:00:00 Screening for malignant neoplasm of breast (procedure) [code = [id number]] [facility] Future Scheduled Test 1972 00:00:00 CT Colonography (combo) [code = CT Colonography (combo)] [facility] Future Scheduled Test 1972 00:00:00 Screening for malignant neoplasm of colon (procedure) [code = 355559460] [facility] Future Scheduled Test 1972 00:00:00 Screening for malignant neoplasm of colon (procedure) [code = 691620485] [facility] Future Scheduled Test 1972 00:00:00 Screening for malignant neoplasm of colon (procedure) [code = 148501025] [facility] Future Scheduled Test 1972 00:00:00 Screening for malignant neoplasm of colon (procedure) [code = 917249250] [facility] Future Scheduled Test 1972 00:00:00 Sigmoidoscopy [code = Sigmoidoscopy] [facility] Future Scheduled Test 1972 00:00:00 Screening for malignant neoplasm of breast (procedure) [code = 032373455] [facility] Future Scheduled Test 1972 00:00:00 CT Colonography (combo) [code = CT Colonography (combo)] [facility] Future Scheduled Test 1972 00:00:00 Screening for malignant neoplasm of colon (procedure) [code = 065296469] [facility] Future Scheduled Test 1972 00:00:00 Screening for malignant neoplasm of colon (procedure) [code = 033555375] [facility] Future Scheduled Test 1972 00:00:00 Screening for malignant neoplasm of colon (procedure) [code = 339101617] [facility] Future Scheduled Test 1972 00:00:00 Screening for malignant neoplasm of colon (procedure) [code = 915758274] [facility] Future Scheduled Test 1972 00:00:00 Sigmoidoscopy [code = Sigmoidoscopy] [facility] Future Scheduled Test 1972 00:00:00 Screening for malignant neoplasm of breast (procedure) [code = 204672680] [facility] Future Scheduled Test 1972 00:00:00 CT Colonography (combo) [code = CT Colonography (combo)] [facility] Future Scheduled Test 1972 00:00:00 Screening for malignant neoplasm of colon (procedure) [code = 142597517] [facility] Future Scheduled Test 1972 00:00:00 Screening for malignant neoplasm of colon (procedure) [code = 356246800] [facility] Future Scheduled Test 1972 00:00:00 Screening for malignant neoplasm of colon (procedure) [code = 142056731] [facility] Future Scheduled Test 1972 00:00:00 Screening for malignant neoplasm of colon (procedure) [code = 721515265] [facility] Future Scheduled Test 1972 00:00:00 Sigmoidoscopy [code = Sigmoidoscopy] [facility] Future Scheduled Test 1972 00:00:00 Screening for malignant neoplasm of breast (procedure) [code = 944780356] [facility] Future Scheduled Test 1972 00:00:00 CT Colonography (combo) [code = CT Colonography (combo)] [facility] Future Scheduled Test 1972 00:00:00 Screening for malignant neoplasm of colon (procedure) [code = 513883237] [facility] Future Scheduled Test 1972 00:00:00 Screening for malignant neoplasm of colon (procedure) [code = 812435721] [facility] Future Scheduled Test 1972 00:00:00 Screening for malignant neoplasm of colon (procedure) [code = 930390105] [facility] Future Scheduled Test 1972 00:00:00 Screening for malignant neoplasm of colon (procedure) [code = 940256654] [facility] Future Scheduled Test 1972 00:00:00 Sigmoidoscopy [code = Sigmoidoscopy] [facility] Future Scheduled Test 1972 00:00:00 Screening for malignant neoplasm of breast (procedure) [code = 676695054] [facility] Future Scheduled Test 1972 00:00:00 CT Colonography (combo) [code = CT Colonography (combo)] [facility] Scheduled Test 1972 00:00:00 Screening for malignant neoplasm of colon (procedure) [code = 297929069] [facility] Future Scheduled Test 1972 00:00:00 Screening for malignant neoplasm of colon (procedure) [code = 387132607] [facility] Future Scheduled Test 1972 00:00:00 Screening for malignant neoplasm of colon (procedure) [code = 907097816] [facility] Future Scheduled Test 1972 00:00:00 Screening for malignant neoplasm of colon (procedure) [code = 787500958] [facility] Future Scheduled Test 1972 00:00:00 Sigmoidoscopy [code = Sigmoidoscopy] [facility] Scheduled Test 1972 00:00:00 Screening for malignant neoplasm of breast (procedure) [code = 586056552] [facility] Scheduled Test 1972 00:00:00 CT Colonography (combo) [code = CT Colonography (combo)] [facility] Scheduled Test 1972 00:00:00 Screening for malignant neoplasm of colon (procedure) [code = 586234327] [facility] Future Scheduled Test 1972 00:00:00 Screening for malignant neoplasm of colon (procedure) [code = 508740161] [facility] Future Scheduled Test 1972 00:00:00 Screening for malignant neoplasm of colon (procedure) [code = 222469696] [facility] Future Scheduled Test 1972 00:00:00 Screening for malignant neoplasm of colon (procedure) [code = 595796477] [facility] Future Scheduled Test 1972 00:00:00 Sigmoidoscopy [code = Sigmoidoscopy] [facility] Scheduled Test 1972 00:00:00 Screening for malignant neoplasm of breast (procedure) [code = 476118459] [facility] Future Scheduled Test 1972 00:00:00 CT Colonography (combo) [code = CT Colonography (combo)] [facility] Scheduled Test 1972 00:00:00 Screening for malignant neoplasm of colon (procedure) [code = 887367611] [facility] Future Scheduled Test 1972 00:00:00 Screening for malignant neoplasm of colon (procedure) [code = 593297359] [facility] Future Scheduled Test 1972 00:00:00 Screening for malignant neoplasm of colon (procedure) [code = 112074588] [facility] Future Scheduled Test 1972 00:00:00 Screening for malignant neoplasm of colon (procedure) [code = 989517207] [facility] Future Scheduled Test 1972 00:00:00 Sigmoidoscopy [code = Sigmoidoscopy] [facility] Scheduled Test 1972 00:00:00 Screening for malignant neoplasm of breast (procedure) [code = 108397364] [facility] Future Scheduled Test 1972 00:00:00 CT Colonography (combo) [code = CT Colonography (combo)] [facility] Scheduled Test 1972 00:00:00 Screening for malignant neoplasm of colon (procedure) [code = 321913277] [facility] Future Scheduled Test 1972 00:00:00 Screening for malignant neoplasm of colon (procedure) [code = 642976538] [facility] Future Scheduled Test 1972 00:00:00 Screening for malignant neoplasm of colon (procedure) [code = 359649745] [facility] Future Scheduled Test 1972 00:00:00 Screening for malignant neoplasm of colon (procedure) [code = 299134495] [facility] Future Scheduled Test 1972 00:00:00 Sigmoidoscopy [code = Sigmoidoscopy] [facility] Future Scheduled Test 1972 00:00:00 Screening for malignant neoplasm of breast (procedure) [code = 622588339] [facility] Future Scheduled Test 1972 00:00:00 CT Colonography (combo) [code = CT Colonography (combo)] [facility] Future Scheduled Test 1972 00:00:00 Screening for malignant neoplasm of colon (procedure) [code = 905513518] [facility] Future Scheduled Test 1972 00:00:00 Screening for malignant neoplasm of colon (procedure) [code = 578065139] [facility] Future Scheduled Test 1972 00:00:00 Screening for malignant neoplasm of colon (procedure) [code = 415708888] [facility] Future Scheduled Test 1972 00:00:00 Screening for malignant neoplasm of colon (procedure) [code = 494107359] [facility] Future Scheduled Test 1972 00:00:00 Sigmoidoscopy [code = Sigmoidoscopy] [facility] Future Scheduled Test 1972 00:00:00 Screening for malignant neoplasm of breast (procedure) [code = 807790025] [facility] Future Scheduled Test 1972 00:00:00 CT Colonography (combo) [code = CT Colonography (combo)] [facility] Future Scheduled Test 1972 00:00:00 Screening for malignant neoplasm of colon (procedure) [code = 271434392] [facility] Future Scheduled Test 1972 00:00:00 Screening for malignant neoplasm of colon (procedure) [code = 580863302] [facility] Future Scheduled Test 1972 00:00:00 Screening for malignant neoplasm of colon (procedure) [code = 684608181] [facility] Future Scheduled Test 1972 00:00:00 Screening for malignant neoplasm of colon (procedure) [code = 986842320] [facility] Future Scheduled Test 1972 00:00:00 Sigmoidoscopy [code = Sigmoidoscopy] [facility] Future Scheduled Test 1972 00:00:00 Screening for malignant neoplasm of breast (procedure) [code = 489257638] [facility] Future Scheduled Test 1972 00:00:00 CT Colonography (combo) [code = CT Colonography (combo)] [facility] Future Scheduled Test 1972 00:00:00 Screening for malignant neoplasm of colon (procedure) [code = 028397372] [facility] Future Scheduled Test 1972 00:00:00 Screening for malignant neoplasm of colon (procedure) [code = 985634271] [facility] Future Scheduled Test 1972 00:00:00 Screening for malignant neoplasm of colon (procedure) [code = 604832750] [facility] Future Scheduled Test 1972 00:00:00 Screening for malignant neoplasm of colon (procedure) [code = 683255668] [facility] Future Scheduled Test 1972 00:00:00 Sigmoidoscopy [code = Sigmoidoscopy] [facility] Future Scheduled Test 1972 00:00:00 Screening for malignant neoplasm of breast (procedure) [code = 041602307] [facility] Future Scheduled Test 1972 00:00:00 CT Colonography (combo) [code = CT Colonography (combo)] [facility] Future Scheduled Test 1972 00:00:00 Screening for malignant neoplasm of colon (procedure) [code = 014281136] [facility] Future Scheduled Test 1972 00:00:00 Screening for malignant neoplasm of colon (procedure) [code = 719102410] [facility] Future Scheduled Test 1972 00:00:00 Screening for malignant neoplasm of colon (procedure) [code = 196757143] [facility] Future Scheduled Test 1972 00:00:00 Screening for malignant neoplasm of colon (procedure) [code = 966250464] [facility] Future Scheduled Test 1972 00:00:00 Sigmoidoscopy [code = Sigmoidoscopy] [facility] Future Scheduled Test 1972 00:00:00 Screening for malignant neoplasm of breast (procedure) [code = 631311764] [facility] Future Scheduled Test 1972 00:00:00 CT Colonography (combo) [code = CT Colonography (combo)] [facility] Future Scheduled Test 1972 00:00:00 Screening for malignant neoplasm of colon (procedure) [code = 395391408] [facility] Future Scheduled Test 1972 00:00:00 Screening for malignant neoplasm of colon (procedure) [code = 642694078] [facility] Future Scheduled Test 1972 00:00:00 Screening for malignant neoplasm of colon (procedure) [code = 828435591] [facility] Future Scheduled Test 1972 00:00:00 Screening for malignant neoplasm of colon (procedure) [code = 954938499] [facility] Future Scheduled Test 1972 00:00:00 Sigmoidoscopy [code = Sigmoidoscopy] [facility] Future Scheduled Test 1972 00:00:00 Screening for malignant neoplasm of breast (procedure) [code = 728488493] [facility] Future Scheduled Test 1972 00:00:00 CT Colonography (combo) [code = CT Colonography (combo)] [facility] Future Scheduled Test 1972 00:00:00 Screening for malignant neoplasm of colon (procedure) [code = 038658255] [facility] Future Scheduled Test 1972 00:00:00 Screening for malignant neoplasm of colon (procedure) [code = 537660169] [facility] Future Scheduled Test 1972 00:00:00 Screening for malignant neoplasm of colon (procedure) [code = 948273728] [facility] Future Scheduled Test 1972 00:00:00 Screening for malignant neoplasm of colon (procedure) [code = 164038786] [facility] Future Scheduled Test 1972 00:00:00 Sigmoidoscopy [code = Sigmoidoscopy] [facility] Future Scheduled Test 1972 00:00:00 Screening for malignant neoplasm of breast (procedure) [code = 272822111] [facility] Future Scheduled Test 1972 00:00:00 CT Colonography (combo) [code = CT Colonography (combo)] [facility] Future Scheduled Test 1972 00:00:00 Screening for malignant neoplasm of colon (procedure) [code = 355823084] [facility] Future Scheduled Test 1972 00:00:00 Screening for malignant neoplasm of colon (procedure) [code = 151014436] [facility] Future Scheduled Test 1972 00:00:00 Screening for malignant neoplasm of colon (procedure) [code = 815315461] [facility] Future Scheduled Test 1972 00:00:00 Screening for malignant neoplasm of colon (procedure) [code = 053869539] [facility] Future Scheduled Test 1972 00:00:00 Sigmoidoscopy [code = Sigmoidoscopy] [facility] Future Scheduled Test 1972 00:00:00 Screening for malignant neoplasm of breast (procedure) [code = 874277912] [facility] Future Scheduled Test 1972 00:00:00 CT Colonography (combo) [code = CT Colonography (combo)] [facility] Future Scheduled Test 1972 00:00:00 Screening for malignant neoplasm of colon (procedure) [code = 765916447] [facility] Future Scheduled Test 1972 00:00:00 Screening for malignant neoplasm of colon (procedure) [code = 967034336] [facility] Future Scheduled Test 1972 00:00:00 Screening for malignant neoplasm of colon (procedure) [code = 800918571] [facility] Future Scheduled Test 1972 00:00:00 Screening for malignant neoplasm of colon (procedure) [code = 424281490] [facility] Future Scheduled Test 1972 00:00:00 Sigmoidoscopy [code = Sigmoidoscopy] [facility] Future Scheduled Test 1972 00:00:00 Screening for malignant neoplasm of breast (procedure) [code = 680356654] [facility] Future Scheduled Test 1972 00:00:00 CT Colonography (combo) [code = CT Colonography (combo)] [facility] Future Scheduled Test 1972 00:00:00 Screening for malignant neoplasm of colon (procedure) [code = 302918187] [facility] Future Scheduled Test 1972 00:00:00 Screening for malignant neoplasm of colon (procedure) [code = 583046574] [facility] Future Scheduled Test 1972 00:00:00 Screening for malignant neoplasm of colon (procedure) [code = 121979157] [facility] Future Scheduled Test 1972 00:00:00 Screening for malignant neoplasm of colon (procedure) [code = 794942585] [facility] Future Scheduled Test 1972 00:00:00 Sigmoidoscopy [code = Sigmoidoscopy] [facility] Future Scheduled Test 1972 00:00:00 Screening for malignant neoplasm of breast (procedure) [code = 781618531] [facility] Future Scheduled Test 1972 00:00:00 CT Colonography (combo) [code = CT Colonography (combo)] [facility] Future Scheduled Test 1972 00:00:00 Screening for malignant neoplasm of breast (procedure) [code = 086287991] [facility] Future Scheduled Test 1972 00:00:00 CT Colonography (combo) [code = CT Colonography (combo)] [facility] Future Scheduled Test 1972 00:00:00 Screening for malignant neoplasm of colon (procedure) [code = 419934299] [facility] Future Scheduled Test 1972 00:00:00 Screening for malignant neoplasm of colon (procedure) [code = 226340278] [facility] Future Scheduled Test 1972 00:00:00 Screening for malignant neoplasm of colon (procedure) [code = 096095166] [facility] Future Scheduled Test 1972 00:00:00 Screening for malignant neoplasm of colon (procedure) [code = 975088375] [facility] Future Scheduled Test 1972 00:00:00 Sigmoidoscopy [code = Sigmoidoscopy] [facility] Future Scheduled Test 1972 00:00:00 Screening for malignant neoplasm of colon (procedure) [code = 047683434] [facility] Future Scheduled Test 1972 00:00:00 Screening for malignant neoplasm of colon (procedure) [code = 295213384] [facility] Future Scheduled Test 1972 00:00:00 Screening for malignant neoplasm of colon (procedure) [code = 172519197] [facility] Future Scheduled Test 1972 00:00:00 Screening for malignant neoplasm of colon (procedure) [code = 764809291] [facility] Future Scheduled Test 1972 00:00:00 Sigmoidoscopy [code = Sigmoidoscopy] [facility] Future Scheduled Test 1972 00:00:00 Screening for malignant neoplasm of breast (procedure) [code = 423277734] [facility] Future Scheduled Test 1972 00:00:00 CT Colonography (combo) [code = CT Colonography (combo)] [facility] Future Scheduled Test 1972 00:00:00 Screening for malignant neoplasm of colon (procedure) [code = 681421912] [facility] Future Scheduled Test 1972 00:00:00 Screening for malignant neoplasm of colon (procedure) [code = 232112552] [facility] Future Scheduled Test 1972 00:00:00 Screening for malignant neoplasm of colon (procedure) [code = 114095459] [facility] Future Scheduled Test 1972 00:00:00 Screening for malignant neoplasm of colon (procedure) [code = 453387260] [facility] Future Scheduled Test 1972 00:00:00 Sigmoidoscopy [code = Sigmoidoscopy] [facility] Future Scheduled Test 1972 00:00:00 Screening for malignant neoplasm of breast (procedure) [code = 181855364] [facility] Future Scheduled Test 1972 00:00:00 CT Colonography (combo) [code = CT Colonography (combo)] [facility] Future Scheduled Test 1972 00:00:00 Screening for malignant neoplasm of colon (procedure) [code = 054488173] [facility] Future Scheduled Test 1972 00:00:00 Screening for malignant neoplasm of colon (procedure) [code = 485807803] [facility] Future Scheduled Test 1972 00:00:00 Screening for malignant neoplasm of colon (procedure) [code = 114207102] [facility] Future Scheduled Test 1972 00:00:00 Screening for malignant neoplasm of colon (procedure) [code = 118490252] [facility] Future Scheduled Test 1972 00:00:00 Sigmoidoscopy [code = Sigmoidoscopy] [facility] Future Scheduled Test 1972 00:00:00 Screening for malignant neoplasm of breast (procedure) [code = 496845923] [facility] Future Scheduled Test 1972 00:00:00 CT Colonography (combo) [code = CT Colonography (combo)] [facility] Future Scheduled Test 1972 00:00:00 Screening for malignant neoplasm of colon (procedure) [code = 351747967] [facility] Future Scheduled Test 1972 00:00:00 Screening for malignant neoplasm of colon (procedure) [code = 950949148] [facility] Future Scheduled Test 1972 00:00:00 Screening for malignant neoplasm of colon (procedure) [code = 764554658] [facility] Future Scheduled Test 1972 00:00:00 Screening for malignant neoplasm of colon (procedure) [code = 299578419] [facility] Future Scheduled Test 1972 00:00:00 Sigmoidoscopy [code = Sigmoidoscopy] [facility] Future Scheduled Test 1972 00:00:00 Screening for malignant neoplasm of breast (procedure) [code = 963233130] [facility] Future Scheduled Test 1972 00:00:00 CT Colonography (combo) [code = CT Colonography (combo)] [facility] Future Scheduled Test 1972 00:00:00 Screening for malignant neoplasm of colon (procedure) [code = 809173461] [facility] Future Scheduled Test 1972 00:00:00 Screening for malignant neoplasm of colon (procedure) [code = 603577572] [facility] Future Scheduled Test 1972 00:00:00 Screening for malignant neoplasm of colon (procedure) [code = 985206189] [facility] Future Scheduled Test 1972 00:00:00 Screening for malignant neoplasm of colon (procedure) [code = 074106996] [facility] Future Scheduled Test 1972 00:00:00 Sigmoidoscopy [code = Sigmoidoscopy] [facility] Future Scheduled Test 1972 00:00:00 Screening for malignant neoplasm of breast (procedure) [code = 512859924] [facility] Future Scheduled Test 1972 00:00:00 CT Colonography (combo) [code = CT Colonography (combo)] [facility] Future Scheduled Test 1972 00:00:00 Screening for malignant neoplasm of colon (procedure) [code = 441761132] [facility] Future Scheduled Test 1972 00:00:00 Screening for malignant neoplasm of colon (procedure) [code = 518878059] [facility] Future Scheduled Test 1972 00:00:00 Screening for malignant neoplasm of colon (procedure) [code = 593301428] [facility] Future Scheduled Test 1972 00:00:00 Screening for malignant neoplasm of colon (procedure) [code = 528498923] [facility] Future Scheduled Test 1972 00:00:00 Sigmoidoscopy [code = Sigmoidoscopy] [facility] Future Scheduled Test 1972 00:00:00 Screening for malignant neoplasm of breast (procedure) [code = 161018295] [facility] Future Scheduled Test 1972 00:00:00 CT Colonography (combo) [code = CT Colonography (combo)] [facility] Future Scheduled Test 1972 00:00:00 Screening for malignant neoplasm of colon (procedure) [code = 449858871] [facility] Future Scheduled Test 1972 00:00:00 Screening for malignant neoplasm of colon (procedure) [code = 150564505] [facility] Future Scheduled Test 1972 00:00:00 Screening for malignant neoplasm of colon (procedure) [code = 683499351] [facility] Future Scheduled Test 1972 00:00:00 Screening for malignant neoplasm of colon (procedure) [code = 060214849] [facility] Future Scheduled Test 1972 00:00:00 Sigmoidoscopy [code = Sigmoidoscopy] [facility] Future Scheduled Test 1972 00:00:00 Screening for malignant neoplasm of breast (procedure) [code = 501702459] [facility] Future Scheduled Test 1972 00:00:00 CT Colonography (combo) [code = CT Colonography (combo)] [facility] Future Scheduled Test 1972 00:00:00 Screening for malignant neoplasm of colon (procedure) [code = 026751118] [facility] Future Scheduled Test 1972 00:00:00 Screening for malignant neoplasm of colon (procedure) [code = 884090332] [facility] Future Scheduled Test 1972 00:00:00 Screening for malignant neoplasm of colon (procedure) [code = 972434003] [facility] Future Scheduled Test 1972 00:00:00 Screening for malignant neoplasm of colon (procedure) [code = 719014384] [facility] Future Scheduled Test 1972 00:00:00 Screening for malignant neoplasm of breast (procedure) [code = 625339795] [facility] Future Scheduled Test 1972 00:00:00 CT Colonography (combo) [code = CT Colonography (combo)] [facility] Future Scheduled Test 1972 00:00:00 Sigmoidoscopy [code = Sigmoidoscopy] [facility] Future Scheduled Test 1972 00:00:00 Screening for malignant neoplasm of colon (procedure) [code = 900583747] [facility] Future Scheduled Test 1972 00:00:00 Screening for malignant neoplasm of colon (procedure) [code = 990761716] [facility] Future Scheduled Test 1972 00:00:00 Screening for malignant neoplasm of colon (procedure) [code = 805437353] [facility] Future Scheduled Test 1972 00:00:00 Screening for malignant neoplasm of colon (procedure) [code = 565644268] [facility] Future Scheduled Test 1972 00:00:00 Sigmoidoscopy [code = Sigmoidoscopy] [facility] Future Scheduled Test 1972 00:00:00 Screening for malignant neoplasm of breast (procedure) [code = 801165783] [facility] Future Scheduled Test 1972 00:00:00 CT Colonography (combo) [code = CT Colonography (combo)] [facility] Future Scheduled Test 1972 00:00:00 Screening for malignant neoplasm of colon (procedure) [code = 982596101] [facility] Future Scheduled Test 1972 00:00:00 Screening for malignant neoplasm of colon (procedure) [code = 484786666] [facility] Future Scheduled Test 1972 00:00:00 Screening for malignant neoplasm of colon (procedure) [code = 945213276] [facility] Future Scheduled Test 1972 00:00:00 Screening for malignant neoplasm of colon (procedure) [code = 948130993] [facility] Future Scheduled Test 1972 00:00:00 Sigmoidoscopy [code = Sigmoidoscopy] [facility] Future Scheduled Test 1972 00:00:00 Screening for malignant neoplasm of breast (procedure) [code = 651112486] [facility] Future Scheduled Test 1972 00:00:00 CT Colonography (combo) [code = CT Colonography (combo)] [facility] Future Scheduled Test 1972 00:00:00 Screening for malignant neoplasm of colon (procedure) [code = 699641681] [facility] Future Scheduled Test 1972 00:00:00 Screening for malignant neoplasm of colon (procedure) [code = 145911950] [facility] Future Scheduled Test 1972 00:00:00 Screening for malignant neoplasm of colon (procedure) [code = 400756476] [facility] Future Scheduled Test 1972 00:00:00 Screening for malignant neoplasm of colon (procedure) [code = 591435230] [facility] Future Scheduled Test 1972 00:00:00 Sigmoidoscopy [code = Sigmoidoscopy] [facility] Future Scheduled Test 1972 00:00:00 Screening for malignant neoplasm of breast (procedure) [code = 879116536] [facility] Future Scheduled Test 1972 00:00:00 CT Colonography (combo) [code = CT Colonography (combo)] [facility] Future Scheduled Test 1972 00:00:00 Screening for malignant neoplasm of colon (procedure) [code = 556876231] [facility] Future Scheduled Test 1972 00:00:00 Screening for malignant neoplasm of colon (procedure) [code = 223794666] [facility] Future Scheduled Test 1972 00:00:00 Screening for malignant neoplasm of colon (procedure) [code = 753012641] [facility] Future Scheduled Test 1972 00:00:00 Screening for malignant neoplasm of colon (procedure) [code = 485533174] [facility] Future Scheduled Test 1972 00:00:00 Sigmoidoscopy [code = Sigmoidoscopy] [facility] Future Scheduled Test 1972 00:00:00 Screening for malignant neoplasm of breast (procedure) [code = 163433938] [facility] Future Scheduled Test 1972 00:00:00 CT Colonography (combo) [code = CT Colonography (combo)] [facility] Future Scheduled Test 1972 00:00:00 Screening for malignant neoplasm of colon (procedure) [code = 885645040] [facility] Future Scheduled Test 1972 00:00:00 Screening for malignant neoplasm of colon (procedure) [code = 738530924] [facility] Future Scheduled Test 1972 00:00:00 Screening for malignant neoplasm of colon (procedure) [code = 717859703] [facility] Future Scheduled Test 1972 00:00:00 Screening for malignant neoplasm of colon (procedure) [code = 508196979] [facility] Future Scheduled Test 1972 00:00:00 Sigmoidoscopy [code = Sigmoidoscopy] [facility] Future Scheduled Test 1972 00:00:00 Screening for malignant neoplasm of breast (procedure) [code = 143334254] [facility] Future Scheduled Test 1972 00:00:00 CT Colonography (combo) [code = CT Colonography (combo)] [facility] Future Scheduled Test 1972 00:00:00 Screening for malignant neoplasm of colon (procedure) [code = 658271948] [facility] Future Scheduled Test 1972 00:00:00 Screening for malignant neoplasm of colon (procedure) [code = 964942646] [facility] Future Scheduled Test 1972 00:00:00 Screening for malignant neoplasm of colon (procedure) [code = 582816414] [facility] Future Scheduled Test 1972 00:00:00 Screening for malignant neoplasm of colon (procedure) [code = 177273459] [facility] Future Scheduled Test 1972 00:00:00 Sigmoidoscopy [code = Sigmoidoscopy] [facility] Future Scheduled Test 1972 00:00:00 Screening for malignant neoplasm of breast (procedure) [code = 980969318] [facility] Future Scheduled Test 1972 00:00:00 CT Colonography (combo) [code = CT Colonography (combo)] [facility] Future Scheduled Test 1972 00:00:00 Screening for malignant neoplasm of colon (procedure) [code = 530679448] [facility] Future Scheduled Test 1972 00:00:00 Screening for malignant neoplasm of colon (procedure) [code = 147375626] [facility] Future Scheduled Test 1972 00:00:00 Screening for malignant neoplasm of breast (procedure) [code = 604695308] [facility] Future Scheduled Test 1972 00:00:00 Screening for malignant neoplasm of colon (procedure) [code = 608145712] [facility] Future Scheduled Test 1972 00:00:00 CT Colonography (combo) [code = CT Colonography (combo)] [facility] Future Scheduled Test 1972 00:00:00 Screening for malignant neoplasm of colon (procedure) [code = 607934162] [facility] Future Scheduled Test 1972 00:00:00 Screening for malignant neoplasm of colon (procedure) [code = 642897505] [facility] Future Scheduled Test 1972 00:00:00 Screening for malignant neoplasm of colon (procedure) [code = 515248008] [facility] Future Scheduled Test 1972 00:00:00 Screening for malignant neoplasm of colon (procedure) [code = 757886551] [facility] Future Scheduled Test 1972 00:00:00 Sigmoidoscopy [code = Sigmoidoscopy] [facility] Future Scheduled Test 1972 00:00:00 Screening for malignant neoplasm of colon (procedure) [code = 780464902] [facility] Future Scheduled Test 1972 00:00:00 Sigmoidoscopy [code = Sigmoidoscopy] [facility] Future Scheduled Test 1972 00:00:00 Screening for malignant neoplasm of breast (procedure) [code = 470675042] [facility] Future Scheduled Test 1972 00:00:00 CT Colonography (combo) [code = CT Colonography (combo)] [facility] Future Scheduled Test 1972 00:00:00 Screening for malignant neoplasm of colon (procedure) [code = 670192640] [facility] Future Scheduled Test 1972 00:00:00 Screening for malignant neoplasm of colon (procedure) [code = 169926395] [facility] Future Scheduled Test 1972 00:00:00 Screening for malignant neoplasm of colon (procedure) [code = 060194676] [facility] Future Scheduled Test 1972 00:00:00 Screening for malignant neoplasm of colon (procedure) [code = 019789140] [facility] Future Scheduled Test 1972 00:00:00 Sigmoidoscopy [code = Sigmoidoscopy] [facility] Scheduled Test 1972 00:00:00 Screening for malignant neoplasm of breast (procedure) [code = 122441869] [facility] Future Scheduled Test 1972 00:00:00 CT Colonography (combo) [code = CT Colonography (combo)] [facility] Future Scheduled Test 1972 00:00:00 Screening for malignant neoplasm of colon (procedure) [code = 489602463] [facility] Future Scheduled Test 1972 00:00:00 Screening for malignant neoplasm of colon (procedure) [code = 757961593] [facility] Future Scheduled Test 1972 00:00:00 Screening for malignant neoplasm of colon (procedure) [code = 873389881] [facility] Future Scheduled Test 1972 00:00:00 Screening for malignant neoplasm of colon (procedure) [code = 610076512] [facility] Future Scheduled Test 1972 00:00:00 Sigmoidoscopy [code = Sigmoidoscopy] [facility] Future Scheduled Test 1972 00:00:00 Screening for malignant neoplasm of breast (procedure) [code = 662754958] [facility] Future Scheduled Test 1972 00:00:00 CT Colonography (combo) [code = CT Colonography (combo)] [facility] Future Scheduled Test 1972 00:00:00 Screening for malignant neoplasm of colon (procedure) [code = 464800048] [facility] Future Scheduled Test 1972 00:00:00 Screening for malignant neoplasm of colon (procedure) [code = 574995084] [facility] Future Scheduled Test 1972 00:00:00 Screening for malignant neoplasm of colon (procedure) [code = 853831166] [facility] Future Scheduled Test 1972 00:00:00 Screening for malignant neoplasm of colon (procedure) [code = 580056207] [facility] Future Scheduled Test 1972 00:00:00 Sigmoidoscopy [code = Sigmoidoscopy] [facility] Future Scheduled Test 1972 00:00:00 Screening for malignant neoplasm of breast (procedure) [code = 823054616] [facility] Future Scheduled Test 1972 00:00:00 CT Colonography (combo) [code = CT Colonography (combo)] [facility] Future Scheduled Test 1972 00:00:00 Screening for malignant neoplasm of colon (procedure) [code = 650305753] [facility] Future Scheduled Test 1972 00:00:00 Screening for malignant neoplasm of colon (procedure) [code = 868077060] [facility] Future Scheduled Test 1972 00:00:00 Screening for malignant neoplasm of colon (procedure) [code = 673985202] [facility] Future Scheduled Test 1972 00:00:00 Screening for malignant neoplasm of colon (procedure) [code = 464820646] [facility] Future Scheduled Test 1972 00:00:00 Sigmoidoscopy [code = Sigmoidoscopy] [facility] Future Scheduled Test 1972 00:00:00 Screening for malignant neoplasm of breast (procedure) [code = 859203992] [facility] Future Scheduled Test 1972 00:00:00 CT Colonography (combo) [code = CT Colonography (combo)] [facility] Future Scheduled Test 1972 00:00:00 Screening for malignant neoplasm of colon (procedure) [code = 684437952] [facility] Future Scheduled Test 1972 00:00:00 Screening for malignant neoplasm of colon (procedure) [code = 867408141] [facility] Future Scheduled Test 1972 00:00:00 Screening for malignant neoplasm of colon (procedure) [code = 781969509] [facility] Future Scheduled Test 1972 00:00:00 Screening for malignant neoplasm of colon (procedure) [code = 685479890] [facility] Future Scheduled Test 1972 00:00:00 Sigmoidoscopy [code = Sigmoidoscopy] [facility] Future Scheduled Test 1972 00:00:00 Screening for malignant neoplasm of breast (procedure) [code = 765051535] [facility] Future Scheduled Test 1972 00:00:00 CT Colonography (combo) [code = CT Colonography (combo)] [facility] Future Scheduled Test 1972 00:00:00 Screening for malignant neoplasm of colon (procedure) [code = 512732438] [facility] Future Scheduled Test 1972 00:00:00 Screening for malignant neoplasm of colon (procedure) [code = 480214539] [facility] Future Scheduled Test 1972 00:00:00 Screening for malignant neoplasm of colon (procedure) [code = 607374279] [facility] Future Scheduled Test 1972 00:00:00 Screening for malignant neoplasm of colon (procedure) [code = 471864448] [facility] Future Scheduled Test 1972 00:00:00 Sigmoidoscopy [code = Sigmoidoscopy] [facility] Future Scheduled Test 1972 00:00:00 Screening for malignant neoplasm of breast (procedure) [code = 877738951] [facility] Future Scheduled Test 1972 00:00:00 CT Colonography (combo) [code = CT Colonography (combo)] [facility] Future Scheduled Test 1972 00:00:00 Screening for malignant neoplasm of colon (procedure) [code = 037863599] [facility] Future Scheduled Test 1972 00:00:00 Screening for malignant neoplasm of colon (procedure) [code = 698793781] [facility] Future Scheduled Test 1972 00:00:00 Screening for malignant neoplasm of colon (procedure) [code = 584539555] [facility] Future Scheduled Test 1972 00:00:00 Screening for malignant neoplasm of colon (procedure) [code = 335844637] [facility] Future Scheduled Test 1972 00:00:00 Sigmoidoscopy [code = Sigmoidoscopy] [facility] Future Scheduled Test 1972 00:00:00 Screening for malignant neoplasm of breast (procedure) [code = 173629931] [facility] Future Scheduled Test 1972 00:00:00 CT Colonography (combo) [code = CT Colonography (combo)] [facility] Future Scheduled Test 1972 00:00:00 Screening for malignant neoplasm of colon (procedure) [code = 265224696] [facility] Future Scheduled Test 1972 00:00:00 Screening for malignant neoplasm of colon (procedure) [code = 245340754] [facility] Future Scheduled Test 1972 00:00:00 Screening for malignant neoplasm of colon (procedure) [code = 940523612] [facility] Future Scheduled Test 1972 00:00:00 Screening for malignant neoplasm of colon (procedure) [code = 839548404] [facility] Future Scheduled Test 1972 00:00:00 Sigmoidoscopy [code = Sigmoidoscopy] [facility] Future Scheduled Test 1972 00:00:00 Screening for malignant neoplasm of breast (procedure) [code = 816308099] [facility] Future Scheduled Test 1972 00:00:00 CT Colonography (combo) [code = CT Colonography (combo)] [facility] Future Scheduled Test 1972 00:00:00 Screening for malignant neoplasm of colon (procedure) [code = 869499539] [facility] Future Scheduled Test 1972 00:00:00 Screening for malignant neoplasm of colon (procedure) [code = 385744870] [facility] Future Scheduled Test 1972 00:00:00 Screening for malignant neoplasm of colon (procedure) [code = 572374494] [facility] Future Scheduled Test 1972 00:00:00 Screening for malignant neoplasm of colon (procedure) [code = 238749184] [facility] Future Scheduled Test 1972 00:00:00 Sigmoidoscopy [code = Sigmoidoscopy] [facility] Future Scheduled Test 1972 00:00:00 Screening for malignant neoplasm of breast (procedure) [code = 480342357] [facility] Future Scheduled Test 1972 00:00:00 CT Colonography (combo) [code = CT Colonography (combo)] [facility] Future Scheduled Test 1972 00:00:00 Screening for malignant neoplasm of colon (procedure) [code = 501076585] [facility] Future Scheduled Test 1972 00:00:00 Screening for malignant neoplasm of colon (procedure) [code = 022889053] [facility] Future Scheduled Test 1972 00:00:00 Screening for malignant neoplasm of colon (procedure) [code = 270831119] [facility] Future Scheduled Test 1972 00:00:00 Screening for malignant neoplasm of colon (procedure) [code = 025215087] [facility] Future Scheduled Test 1972 00:00:00 Sigmoidoscopy [code = Sigmoidoscopy] [facility] Future Scheduled Test 1972 00:00:00 Screening for malignant neoplasm of breast (procedure) [code = 526526428] [facility] Future Scheduled Test 1972 00:00:00 CT Colonography (combo) [code = CT Colonography (combo)] [facility] Future Scheduled Test 1972 00:00:00 Screening for malignant neoplasm of colon (procedure) [code = 392739729] [facility] Future Scheduled Test 1972 00:00:00 Screening for malignant neoplasm of breast (procedure) [code = 238211853] [facility] Future Scheduled Test 1972 00:00:00 CT Colonography (combo) [code = CT Colonography (combo)] [facility] Future Scheduled Test 1972 00:00:00 Screening for malignant neoplasm of colon (procedure) [code = 650320087] [facility] Future Scheduled Test 1972 00:00:00 Screening for malignant neoplasm of colon (procedure) [code = 292168670] [facility] Future Scheduled Test 1972 00:00:00 Screening for malignant neoplasm of colon (procedure) [code = 478067454] [facility] Future Scheduled Test 1972 00:00:00 Screening for malignant neoplasm of colon (procedure) [code = 862313446] [facility] Future Scheduled Test 1972 00:00:00 Sigmoidoscopy [code = Sigmoidoscopy] [facility] Future Scheduled Test 1972 00:00:00 Screening for malignant neoplasm of colon (procedure) [code = 600827066] [facility] Future Scheduled Test 1972 00:00:00 Screening for malignant neoplasm of colon (procedure) [code = 914225332] [facility] Future Scheduled Test 1972 00:00:00 Screening for malignant neoplasm of colon (procedure) [code = 891280128] [facility] Future Scheduled Test 1972 00:00:00 Sigmoidoscopy [code = Sigmoidoscopy] [facility] Future Scheduled Test 1972 00:00:00 Screening for malignant neoplasm of breast (procedure) [code = 538513162] [facility] Future Scheduled Test 1972 00:00:00 CT Colonography (combo) [code = CT Colonography (combo)] [facility] Future Scheduled Test 1972 00:00:00 Screening for malignant neoplasm of colon (procedure) [code = 206322630] [facility] Future Scheduled Test 1972 00:00:00 Screening for malignant neoplasm of colon (procedure) [code = 879941450] [facility] Future Scheduled Test 1972 00:00:00 Screening for malignant neoplasm of colon (procedure) [code = 582125393] [facility] Future Scheduled Test 1972 00:00:00 Screening for malignant neoplasm of colon (procedure) [code = 885435292] [facility] Future Scheduled Test 1972 00:00:00 Sigmoidoscopy [code = Sigmoidoscopy] [facility] Future Scheduled Test 1972 00:00:00 Screening for malignant neoplasm of breast (procedure) [code = 891153738] [facility] Future Scheduled Test 1972 00:00:00 CT Colonography (combo) [code = CT Colonography (combo)] [facility] Future Scheduled Test 1972 00:00:00 Screening for malignant neoplasm of colon (procedure) [code = 129133262] [facility] Future Scheduled Test 1972 00:00:00 Screening for malignant neoplasm of colon (procedure) [code = 518784416] [facility] Future Scheduled Test 1972 00:00:00 Screening for malignant neoplasm of colon (procedure) [code = 829915483] [facility] Future Scheduled Test 1972 00:00:00 Screening for malignant neoplasm of colon (procedure) [code = 616611571] [facility] Future Scheduled Test 1972 00:00:00 Sigmoidoscopy [code = Sigmoidoscopy] [facility] Future Scheduled Test 1972 00:00:00 Screening for malignant neoplasm of breast (procedure) [code = 902401140] [facility] Future Scheduled Test 1972 00:00:00 CT Colonography (combo) [code = CT Colonography (combo)] [facility] Future Scheduled Test 1972 00:00:00 Screening for malignant neoplasm of colon (procedure) [code = 884274684] [facility] Future Scheduled Test 1972 00:00:00 Screening for malignant neoplasm of colon (procedure) [code = 161458737] [facility] Future Scheduled Test 1972 00:00:00 Screening for malignant neoplasm of colon (procedure) [code = 647729517] [facility] Future Scheduled Test 1972 00:00:00 Screening for malignant neoplasm of colon (procedure) [code = 574013823] [facility] Future Scheduled Test 1972 00:00:00 Sigmoidoscopy [code = Sigmoidoscopy] [facility] Future Scheduled Test 1972 00:00:00 Screening for malignant neoplasm of breast (procedure) [code = 846830199] [facility] Future Scheduled Test 1972 00:00:00 CT Colonography (combo) [code = CT Colonography (combo)] [facility] Future Scheduled Test 1972 00:00:00 Screening for malignant neoplasm of colon (procedure) [code = 283683447] [facility] Future Scheduled Test 1972 00:00:00 Screening for malignant neoplasm of colon (procedure) [code = 591279807] [facility] Future Scheduled Test 1972 00:00:00 Screening for malignant neoplasm of colon (procedure) [code = 869665903] [facility] Future Scheduled Test 1972 00:00:00 Screening for malignant neoplasm of colon (procedure) [code = 746438982] [facility] Future Scheduled Test 1972 00:00:00 Sigmoidoscopy [code = Sigmoidoscopy] [facility] Future Scheduled Test 1972 00:00:00 Screening for malignant neoplasm of breast (procedure) [code = 215384743] [facility] Future Scheduled Test 1972 00:00:00 CT Colonography (combo) [code = CT Colonography (combo)] [facility] Future Scheduled Test 1972 00:00:00 Screening for malignant neoplasm of colon (procedure) [code = 356076173] [facility] Future Scheduled Test 1972 00:00:00 Screening for malignant neoplasm of colon (procedure) [code = 705670332] [facility] Future Scheduled Test 1972 00:00:00 Screening for malignant neoplasm of colon (procedure) [code = 446794936] [facility] Future Scheduled Test 1972 00:00:00 Screening for malignant neoplasm of colon (procedure) [code = 300341234] [facility] Future Scheduled Test 1972 00:00:00 Screening for malignant neoplasm of breast (procedure) [code = 081360915] [facility] Future Scheduled Test 1972 00:00:00 Sigmoidoscopy [code = Sigmoidoscopy] [facility] Future Scheduled Test 1972 00:00:00 CT Colonography (combo) [code = CT Colonography (combo)] [facility] Future Scheduled Test 1972 00:00:00 Screening for malignant neoplasm of colon (procedure) [code = 775832808] [facility] Future Scheduled Test 1972 00:00:00 Screening for malignant neoplasm of breast (procedure) [code = 174749722] [facility] Future Scheduled Test 1972 00:00:00 CT Colonography (combo) [code = CT Colonography (combo)] [facility] Future Scheduled Test 1972 00:00:00 Screening for malignant neoplasm of colon (procedure) [code = 626590110] [facility] Future Scheduled Test 1972 00:00:00 Screening for malignant neoplasm of colon (procedure) [code = 335774082] [facility] Future Scheduled Test 1972 00:00:00 Screening for malignant neoplasm of colon (procedure) [code = 410299313] [facility] Future Scheduled Test 1972 00:00:00 Screening for malignant neoplasm of colon (procedure) [code = 558021233] [facility] Future Scheduled Test 1972 00:00:00 Screening for malignant neoplasm of colon (procedure) [code = 473831137] [facility] Future Scheduled Test 1972 00:00:00 Sigmoidoscopy [code = Sigmoidoscopy] [facility] Future Scheduled Test 1972 00:00:00 Screening for malignant neoplasm of colon (procedure) [code = 266212709] [facility] Future Scheduled Test 1972 00:00:00 Screening for malignant neoplasm of colon (procedure) [code = 219434964] [facility] Future Scheduled Test 1972 00:00:00 Screening for malignant neoplasm of breast (procedure) [code = 733433151] [facility] Future Scheduled Test 1972 00:00:00 CT Colonography (combo) [code = CT Colonography (combo)] [facility] Future Scheduled Test 1972 00:00:00 Screening for malignant neoplasm of colon (procedure) [code = 556535866] [facility] Future Scheduled Test 1972 00:00:00 Screening for malignant neoplasm of colon (procedure) [code = 920612309] [facility] Future Scheduled Test 1972 00:00:00 Sigmoidoscopy [code = Sigmoidoscopy] [facility] Future Scheduled Test 1972 00:00:00 Screening for malignant neoplasm of colon (procedure) [code = 546628525] [facility] Future Scheduled Test 1972 00:00:00 Screening for malignant neoplasm of colon (procedure) [code = 249111383] [facility] Future Scheduled Test 1972 00:00:00 Sigmoidoscopy [code = Sigmoidoscopy] [facility] Future Scheduled Test 1972 00:00:00 Screening for malignant neoplasm of breast (procedure) [code = 996166817] [facility] Future Scheduled Test 1972 00:00:00 CT Colonography (combo) [code = CT Colonography (combo)] [facility] Future Scheduled Test 1972 00:00:00 Screening for malignant neoplasm of colon (procedure) [code = 679475092] [facility] Future Scheduled Test 1972 00:00:00 Screening for malignant neoplasm of colon (procedure) [code = 779795859] [facility] Future Scheduled Test 1972 00:00:00 Screening for malignant neoplasm of colon (procedure) [code = 485510259] [facility] Future Scheduled Test 1972 00:00:00 Screening for malignant neoplasm of colon (procedure) [code = 116242483] [facility] Future Scheduled Test 1972 00:00:00 Sigmoidoscopy [code = Sigmoidoscopy] [facility] Future Scheduled Test 1972 00:00:00 Screening for malignant neoplasm of breast (procedure) [code = 147479506] [facility] Future Scheduled Test 1972 00:00:00 CT Colonography (combo) [code = CT Colonography (combo)] [facility] Future Scheduled Test 1972 00:00:00 Screening for malignant neoplasm of colon (procedure) [code = 433933788] [facility] Future Scheduled Test 1972 00:00:00 Screening for malignant neoplasm of colon (procedure) [code = 405815791] [facility] Future Scheduled Test 1972 00:00:00 Screening for malignant neoplasm of colon (procedure) [code = 480894811] [facility] Future Scheduled Test 1972 00:00:00 Screening for malignant neoplasm of colon (procedure) [code = 236031907] [facility] Future Scheduled Test 1972 00:00:00 Sigmoidoscopy [code = Sigmoidoscopy] [facility] Future Scheduled Test 1972 00:00:00 Screening for malignant neoplasm of breast (procedure) [code = 596952260] [facility] Future Scheduled Test 1972 00:00:00 CT Colonography (combo) [code = CT Colonography (combo)] [facility] Future Scheduled Test 1972 00:00:00 Screening for malignant neoplasm of colon (procedure) [code = 966717835] [facility] Future Scheduled Test 1972 00:00:00 Screening for malignant neoplasm of colon (procedure) [code = 445188254] [facility] Future Scheduled Test 1972 00:00:00 Screening for malignant neoplasm of colon (procedure) [code = 818966567] [facility] Future Scheduled Test 1972 00:00:00 Screening for malignant neoplasm of colon (procedure) [code = 712506316] [facility] Future Scheduled Test 1972 00:00:00 Sigmoidoscopy [code = Sigmoidoscopy] [facility] Future Scheduled Test 1972 00:00:00 Screening for malignant neoplasm of breast (procedure) [code = 277620943] [facility] Future Scheduled Test 1972 00:00:00 CT Colonography (combo) [code = CT Colonography (combo)] [facility] Future Scheduled Test 1972 00:00:00 Screening for malignant neoplasm of colon (procedure) [code = 026221893] [facility] Future Scheduled Test 1972 00:00:00 Screening for malignant neoplasm of colon (procedure) [code = 353792505] [facility] Future Scheduled Test 1972 00:00:00 Screening for malignant neoplasm of colon (procedure) [code = 974002460] [facility] Future Scheduled Test 1972 00:00:00 Screening for malignant neoplasm of colon (procedure) [code = 639345925] [facility] Future Scheduled Test 1972 00:00:00 Sigmoidoscopy [code = Sigmoidoscopy] [facility] Future Scheduled Test 1972 00:00:00 Screening for malignant neoplasm of breast (procedure) [code = 947268338] [facility] Future Scheduled Test 1972 00:00:00 CT Colonography (combo) [code = CT Colonography (combo)] [facility] Future Scheduled Test 1972 00:00:00 Screening for malignant neoplasm of colon (procedure) [code = 892081056] [facility] Future Scheduled Test 1972 00:00:00 Screening for malignant neoplasm of colon (procedure) [code = 992042100] [facility] Future Scheduled Test 1972 00:00:00 Screening for malignant neoplasm of colon (procedure) [code = 601511881] [facility] Future Scheduled Test 1972 00:00:00 Screening for malignant neoplasm of colon (procedure) [code = 148053550] [facility] Future Scheduled Test 1972 00:00:00 Sigmoidoscopy [code = Sigmoidoscopy] [facility] Future Scheduled Test 1972 00:00:00 Screening for malignant neoplasm of breast (procedure) [code = 813354565] [facility] Future Scheduled Test 1972 00:00:00 CT Colonography (combo) [code = CT Colonography (combo)] [facility] Future Scheduled Test 1972 00:00:00 Screening for malignant neoplasm of colon (procedure) [code = 297361193] [facility] Future Scheduled Test 1972 00:00:00 Screening for malignant neoplasm of colon (procedure) [code = 104471199] [facility] Future Scheduled Test 1972 00:00:00 Screening for malignant neoplasm of colon (procedure) [code = 486111067] [facility] Future Scheduled Test 1972 00:00:00 Screening for malignant neoplasm of colon (procedure) [code = 532731330] [facility] Future Scheduled Test 1972 00:00:00 Sigmoidoscopy [code = Sigmoidoscopy] [facility] Future Scheduled Test 1972 00:00:00 Screening for malignant neoplasm of breast (procedure) [code = 807756909] [facility] Future Scheduled Test 1972 00:00:00 CT Colonography (combo) [code = CT Colonography (combo)] [facility] Future Scheduled Test 1972 00:00:00 Screening for malignant neoplasm of colon (procedure) [code = 303664190] [facility] Future Scheduled Test 1972 00:00:00 Screening for malignant neoplasm of colon (procedure) [code = 476366027] [facility] Future Scheduled Test 1972 00:00:00 Screening for malignant neoplasm of colon (procedure) [code = 990346958] [facility] Future Scheduled Test 1972 00:00:00 Screening for malignant neoplasm of colon (procedure) [code = 917668162] [facility] Future Scheduled Test 1972 00:00:00 Sigmoidoscopy [code = Sigmoidoscopy] [facility] Future Scheduled Test 1972 00:00:00 Screening for malignant neoplasm of breast (procedure) [code = 818172751] [facility] Future Scheduled Test 1972 00:00:00 CT Colonography (combo) [code = CT Colonography (combo)] [facility] Future Scheduled Test 1972 00:00:00 Screening for malignant neoplasm of colon (procedure) [code = 882893027] [facility] Future Scheduled Test 1972 00:00:00 Screening for malignant neoplasm of colon (procedure) [code = 952564513] [facility] Future Scheduled Test 1972 00:00:00 Screening for malignant neoplasm of colon (procedure) [code = 954485598] [facility] Future Scheduled Test 1972 00:00:00 Screening for malignant neoplasm of colon (procedure) [code = 735336375] [facility] Future Scheduled Test 1972 00:00:00 Sigmoidoscopy [code = Sigmoidoscopy] [facility] Future Scheduled Test 1972 00:00:00 Screening for malignant neoplasm of breast (procedure) [code = 964682723] [facility] Future Scheduled Test 1972 00:00:00 CT Colonography (combo) [code = CT Colonography (combo)] [facility] Future Scheduled Test 1972 00:00:00 Screening for malignant neoplasm of colon (procedure) [code = 937738392] [facility] Future Scheduled Test 1972 00:00:00 Screening for malignant neoplasm of colon (procedure) [code = 942397317] [facility] Future Scheduled Test 1972 00:00:00 Screening for malignant neoplasm of colon (procedure) [code = 411132472] [facility] Future Scheduled Test 1972 00:00:00 Screening for malignant neoplasm of colon (procedure) [code = 414191757] [facility] Future Scheduled Test 1972 00:00:00 Sigmoidoscopy [code = Sigmoidoscopy] [facility] Future Scheduled Test 1972 00:00:00 Screening for malignant neoplasm of breast (procedure) [code = 503780342] [facility] Future Scheduled Test 1972 00:00:00 CT Colonography (combo) [code = CT Colonography (combo)] [facility] Future Scheduled Test 1972 00:00:00 Screening for malignant neoplasm of colon (procedure) [code = 545770042] [facility] Future Scheduled Test 1972 00:00:00 Screening for malignant neoplasm of colon (procedure) [code = 419395981] [facility] Future Scheduled Test 1972 00:00:00 Screening for malignant neoplasm of colon (procedure) [code = 136475226] [facility] Future Scheduled Test 1972 00:00:00 Screening for malignant neoplasm of colon (procedure) [code = 359386310] [facility] Future Scheduled Test 1972 00:00:00 Sigmoidoscopy [code = Sigmoidoscopy] [facility] Future Scheduled Test 1972 00:00:00 Screening for malignant neoplasm of breast (procedure) [code = 984136051] [facility] Future Scheduled Test 1972 00:00:00 CT Colonography (combo) [code = CT Colonography (combo)] [facility] Future Scheduled Test 1972 00:00:00 Screening for malignant neoplasm of colon (procedure) [code = 529107899] [facility] Future Scheduled Test 1972 00:00:00 Screening for malignant neoplasm of colon (procedure) [code = 359276283] [facility] Future Scheduled Test 1972 00:00:00 Screening for malignant neoplasm of colon (procedure) [code = 912488484] [facility] Future Scheduled Test 1972 00:00:00 Screening for malignant neoplasm of colon (procedure) [code = 613416784] [facility] Future Scheduled Test 1972 00:00:00 Sigmoidoscopy [code = Sigmoidoscopy] [facility] Future Scheduled Test 1972 00:00:00 Screening for malignant neoplasm of breast (procedure) [code = 775241768] [facility] Future Scheduled Test 1972 00:00:00 CT Colonography (combo) [code = CT Colonography (combo)] [facility] Future Scheduled Test 1972 00:00:00 Screening for malignant neoplasm of colon (procedure) [code = 413853068] [facility] Future Scheduled Test 1972 00:00:00 Screening for malignant neoplasm of colon (procedure) [code = 397498113] [facility] Future Scheduled Test 1972 00:00:00 Screening for malignant neoplasm of colon (procedure) [code = 062204337] [facility] Future Scheduled Test 1972 00:00:00 Screening for malignant neoplasm of colon (procedure) [code = 406998780] [facility] Future Scheduled Test 1972 00:00:00 Sigmoidoscopy [code = Sigmoidoscopy] [facility] Future Scheduled Test 1972 00:00:00 Screening for malignant neoplasm of breast (procedure) [code = 553709387] [facility] Future Scheduled Test 1972 00:00:00 CT Colonography (combo) [code = CT Colonography (combo)] [facility] Future Scheduled Test 1972 00:00:00 Screening for malignant neoplasm of colon (procedure) [code = 561451977] [facility] Future Scheduled Test 1972 00:00:00 Screening for malignant neoplasm of colon (procedure) [code = 914954565] [facility] Future Scheduled Test 1972 00:00:00 Screening for malignant neoplasm of colon (procedure) [code = 000888285] [facility] Future Scheduled Test 1972 00:00:00 Screening for malignant neoplasm of colon (procedure) [code = 377201413] [facility] Future Scheduled Test 1972 00:00:00 Sigmoidoscopy [code = Sigmoidoscopy] [facility] Future Scheduled Test 1972 00:00:00 Screening for malignant neoplasm of breast (procedure) [code = 715042044] [facility] Future Scheduled Test 1972 00:00:00 CT Colonography (combo) [code = CT Colonography (combo)] [facility] Future Scheduled Test 1972 00:00:00 Screening for malignant neoplasm of colon (procedure) [code = 236058919] [facility] Future Scheduled Test 1972 00:00:00 Screening for malignant neoplasm of colon (procedure) [code = 698020564] [facility] Future Scheduled Test 1972 00:00:00 Screening for malignant neoplasm of colon (procedure) [code = 261049914] [facility] Future Scheduled Test 1972 00:00:00 Screening for malignant neoplasm of colon (procedure) [code = 459606232] [facility] Future Scheduled Test 1972 00:00:00 Sigmoidoscopy [code = Sigmoidoscopy] [facility] Future Scheduled Test 1972 00:00:00 Screening for malignant neoplasm of breast (procedure) [code = 297552632] [facility] Future Scheduled Test 1972 00:00:00 CT Colonography (combo) [code = CT Colonography (combo)] [facility] Future Scheduled Test 1972 00:00:00 Screening for malignant neoplasm of colon (procedure) [code = 566022570] [facility] Future Scheduled Test 1972 00:00:00 Screening for malignant neoplasm of colon (procedure) [code = 895122655] [facility] Future Scheduled Test 1972 00:00:00 Screening for malignant neoplasm of colon (procedure) [code = 950306980] [facility] Future Scheduled Test 1972 00:00:00 Screening for malignant neoplasm of colon (procedure) [code = 192629795] [facility] Future Scheduled Test 1972 00:00:00 Sigmoidoscopy [code = Sigmoidoscopy] [facility] Future Scheduled Test 1972 00:00:00 Screening for malignant neoplasm of breast (procedure) [code = 889065230] [facility] Future Scheduled Test 1972 00:00:00 CT Colonography (combo) [code = CT Colonography (combo)] [facility] Future Scheduled Test 1972 00:00:00 Screening for malignant neoplasm of colon (procedure) [code = 013234596] [facility] Future Scheduled Test 1972 00:00:00 Screening for malignant neoplasm of colon (procedure) [code = 856365218] [facility] Future Scheduled Test 1972 00:00:00 Screening for malignant neoplasm of colon (procedure) [code = 931287444] [facility] Future Scheduled Test 1972 00:00:00 Screening for malignant neoplasm of colon (procedure) [code = 832480706] [facility] Future Scheduled Test 1972 00:00:00 Sigmoidoscopy [code = Sigmoidoscopy] [facility] Goal Plan of Care Not e [code = 73048-0] Goal Plan of Care Not e [code = 11673-0] Goal Plan of Care Not e [code = 83324-9] Goal Plan of Care Not e [code = 19983-6] Goal Plan of Care Not e [code = 96290-8] Goal Plan of Care Not e [code = 97791-2] Goal Plan of Care Not e [code = 31600-8] Goal Plan of Care Not e [code = 51464-8] Goal Plan of Care Not e [code = 16024-2] Goal Plan of Care Not e [code = 19216-0] Goal Plan of Care Not e [code = 49928-7] Goal Plan of Care Not e [code = 08305-5] Goal Plan of Care Not e [code = 95595-4] Goal Plan of Care Not e [code = 93224-4] Goal Plan of Care Not e [code = 80924-6] Goal Plan of Care Not e [code = 48101-0] Goal Plan of Care Not e [code = 23629-9] Goal Plan of Care Not e [code = 53441-8] Goal Plan of Care Not e [code = 95670-0] Goal Plan of Care Not e [code = 26628-1] Goal Plan of Care Not e [code = 58258-0] Goal Plan of Care Not e [code = 05435-7] Goal Plan of Care Not e [code = 44698-7] Goal Plan of Care Not e [code = 60458-4] Goal Plan of Care Not e [code = 68504-8] Goal Plan of Care Not e [code = 05152-1] Goal Plan of Care Not e [code = 46197-0] Goal Plan of Care Not e [code = 59340-9] Goal Plan of Care Not e [code = 76916-2] Goal Plan of Care Not e [code = 15576-5] Goal Plan of Care Not e [code = 33832-9] Goal Plan of Care Not e [code = 82120-9] Goal Plan of Care Not e [code = 83962-4] Goal Plan of Care Not e [code = 11524-3] Goal Plan of Care Not e [code = 19759-9] Encounters Start Date/Time End Date/Time Encounter Type Admission Type Attending Clinicians [facility] Care Department Encounter ID Source 2023-09-07 10:11:03 [facility] [id number] 2023-09-05 10:08:27 Inpatient PANKAJ PARRISH [facility] [id number] [facility] 2023-09-05 10:05:12 [facility] [id number] [facility] 2023-09-04 04:51:30 Inpatient PANKAJ PARRISH [facility] [id number] [facility] 2023-09-04 04:14:55 [facility] [id number] [facility] 2023-09-04 03:08:45 Inpatient PANKAJ PARRISH [facility] [id number] [facility] 2023-09-04 02:36:28 [facility] [id number] [facility] 2023-06-16 09:32:36 Inpatient AYDEE DICKENS [facility] [id number] [facility] 2023-06-16 09:32:09 Inpatient A[facility]E [facility]ICKENS [facility] [id number] [facility] 2023-06-16 09:31:53 [facility] [id number] [facility] 2023-06-14 07:46:02 Inpatient AYDEE DICKENS [facility] [id number] [facility] 2023-06-14 07:39:22 Inpatient AYDEE DICKENS [facility] [id number] [facility] 2023-06-14 06:38:38 Inpatient AYDEE DICKENS [facility] [id number] [facility] 2023-06-13 13:44:18 Inpatient EL MARIANELA BURGESS [facility] [id number] [facility] 2023-06-13 11:45:24 Inpatient AYDEE DICKENS [facility] [id number] [facility] 2023-05-08 11:21:00 Outpatient EL ADAM GARCIA [facility] Surgery [id number] [facility] 2023-04-01 14:26:29 Inpatient ER THOMAS LOZOYA [facility] [id number] [facility] 2023-03-31 09:24:52 Inpatient ER MARIAH ALDRIDGE [facility] [id number] [facility] 2021-05-20 18:48:04 Emergency [facility] [id number] [facility] 2021-05-20 12:43:40 Emergency [facility] [id number] [facility] 2024-04-02 20:43:00 2024-04-03 00:56:00 Emergency X CHRISSY MOHR TIMOTHY [facility] E[facility] [id number] [facility] 2024-04-02 20:43:00 2024-04-03 00:56:00 Emergency Chrissy Mohr [facility] AT [facility] 1.0.114 350.1.13.10 4.2.7.2.686 [id number] [facility] 2024-01-14 00:00:00 2024-02-20 18:26:15 Patient Secure Msg Doctor Unassigned, [place] [facility] 1.840.114 350.1.13.10 4.2.7.2.686 [id number] [facility] 2024-01-13 00:00:00 2024-02-13 18:19:27 Patient Secure Msg Doctor Unassigned, [place] [facility] 1.2840.114 350.1.13.10 4.2.7.2.686 [id number] [facility] 2024-01-12 22:04:00 2024-01-13 00:00:00 Emergency X ALAN WYATTNT AYDINRADHA [facility] ERT [id number] [facility] 2024-01-12 22:04:00 2024-01-13 00:00:00 Emergency Radha Wyatt J [facility] 1.2.840.114 350.1.13.10 4.2.7.2.686 [id number] [facility] 2024-01-12 00:00:00 2024-01-12 16:22:23 Transition of Care Veronique Carrillo 1.2.840.114 350.1.13.10 4.2.7.2.686 [id number] [facility] 2024-01-09 16:11:00 2024-01-10 15:56:00 Outpatient X DARRICK ALTAMIRANO [facility] SHEA [id number] [facility] 2024-01-09 16:11:00 2024-01-10 15:56:00 Hospital Encounter Olena Del Castillo K Paige Khan, Mohammad A. [facility] 1.2840.114 350.1.13.10 4.2.7.2.686 [id number] [facility] 2023-12-17 00:00:00 2023-12-17 00:00:00 Transition of Care Morena Joditristan [place] 1.2840.114 350.1.13.10 4.2.7.2.686 [id number] [facility] 2023-12-14 13:34:00 2023-12-15 11:08:00 Outpatient X TAL BENAVIDEZ [facility] SHEA [id number] [facility] 2023-12-14 13:34:00 2023-12-15 11:08:00 Emergency Mj Bryan Jelani [facility] 1.2.840.114 350.1.13.10 4.2.7.2.686 [id number] [facility] 2023-12-02 13:05:00 2023-12-03 19:00:00 Outpatient X MOJGAN SUERO [facility] [id number] [facility] 2023-12-02 13:05:00 2023-12-03 19:00:00 Hospital Encounter Connor Donaldson [facility] Ervin [facility] 1.2.840.114 350.1.13.10 4.2.7.2.686 [id number] [facility] 2023-12-01 00:00:00 2023-12-01 10:40:26 Transition of Care Madeline Mckinley Sharon BLAYNE MACIASY KENNEDY 1.2.840.114 350.1.13.10 4.2.7.2.686 [id number] [facility] 2023-11-30 00:00:00 2023-11-30 10:41:56 Transition of Care Madeline Mckinley 1.2.840.114 350.1.13.10 4.2.7.2.686 [id number] [facility] 2023-11-21 21:12:00 2023-11-28 16:01:00 Inpatient X MADELINE PIERRE [facility] [id number] [facility] 2023-11-21 21:12:00 2023-11-28 16:01:00 Hospital Encounter Madeline Pierre Donnell Khan, Cr Mcdermott, Ivis Rodriguez, Ryder Joshi [facility] 1.2.840.114 350.1.13.10 4.2.7.2.686 [id number] [facility] 2023-11-23 13:45:00 2023-11-23 14:45:00 Surgery Cris Molina [facility] 1.2.840.114 350.1.13.10 4.2.7.2.686 [id number] [facility] 2023-11-07 17:51:00 2023-11-07 22:04:[address] [facility] [id number] 2023-11-07 17:51:00 2023-11-07 22:04:00 Emergency ER JUANY [facility] [id number] [facility] 2023-09-04 00:14:00 2023-09-08 10:51:00 Inpatient ER EDWARD FERRER Neurosurger y [id number] [facility] 2023-09-04 00:14:00 2023-09-08 10:51:00 Hospital Encounter ER [place] Rahul Khan, Maria Hoffman [facility] [id number] [facility] 2023-09-04 00:14:00 2023-09-08 10:51:00 Hospital Encounter [place] Rahul Khan, Maria Hoffman, Maria [facility] [id number] [facility] 2023-09-07 18:41:43 2023-09-07 18:41:43 Outpatient EL EDWARD FERRER [facility] [id number] [facility] 2023-09-03 20:52:00 2023-09-03 23:44:00 emergency [facility] [id number] 2023-09-03 20:52:00 2023-09-03 23:44:00 Emergency ER JUANY [facility] [id number] Bunny silva [facility] 2023-08-19 00:00:00 2023-08-19 00:00:00 Outpatient EL QUIN MONET [facility] [id number] [facility] 2023-08-13 00:00:00 2023-08-13 13:44:39 Orders Only Quin Monet [facility] [id number] [facility] 2023-08-13 00:00:00 2023-08-13 13:44:39 Orders Only Quin Monet [facility] [id number] [facility] 2023-08-12 13:49:00 2023-08-12 16:12:00 Emergency X MJ BRYAN [facility] ERT [id number] [facility] 2023-08-12 13:49:00 2023-08-12 16:12:00 Emergency Mj Bryan [facility] 1.2.840.114 350.1.13.10 4.2.7.2.686 [id number] [facility] 2023-06-15 00:00:00 2023-06-18 10:20:39 Orders Only Provider, Not In System [facility] [id number] [facility] 2023-06-13 03:43:00 2023-06-16 19:45:00 Inpatient ER AYDEE GO [facility] Internal Med [id number] [facility] 2023-06-13 03:43:00 2023-06-16 19:45:00 Hospital Encounter ER Marianela Burgess Sahar [facility] [id number] [facility] 2023-06-13 16:30:06 2023-06-13 16:30:06 Outpatient AYDEE DICKENS [facility] [id number] [facility] 2023-06-13 00:00:00 2023-06-13 00:00:00 Orders Only [facility] [id number] [facility] 2023-06-13 00:00:00 2023-06-13 00:00:00 Travel [facility] [id number] [facility] 2023-06-12 00:00:00 2023-06-12 00:00:00 Telephone Dallas Gomez [facility] [id number] [facility] 2023-05-28 06:45:00 2023-06-04 17:36:00 Inpatient ADAM BRANTLEY [facility] Surgery [id number] [facility] 2023-05-28 06:45:00 2023-06-04 17:36:00 Hospital Encounter Adam Brantley [facility] [id number] [facility] 2023-06-01 09:10:00 2023-06-01 13:00:00 Anesthesia Event Harry Newsome Mujtaba [facility] [id number] [facility] 2023-06-01 09:00:00 2023-06-01 11:30:00 Surgery Adam Garcia [facility] [id number] [facility] 2023-06-01 09:47:57 2023-06-01 09:47:57 [facility] [id number] [facility] 2023-06-01 09:40:34 2023-06-01 09:40:34 Outpatient [facility] [id number] [facility] 2023-05-31 09:25:55 2023-05-31 23:59:00 Inpatient ADAM BRANTLEY [facility] [id number] [facility] 2023-05-31 09:00:00 2023-05-31 23:59:00 Hospital Encounter Adam Garcia [facility] [id number] [facility] 2023-05-28 18:15:29 2023-05-28 18:15:29 Outpatient ADAM BRANTLEY [facility] [id number] [facility] 2023-05-28 08:30:00 2023-05-28 11:54:00 Anesthesia Event Yue Bui [facility] [id number] [facility] 2023-05-28 11:41:14 2023-05-28 11:41:14 Outpatient ADAM BRANTLEY [facility] [id number] [facility] 2023-05-28 08:30:00 2023-05-28 11:00:00 Surgery Adam Garcia [facility] [id number] [facility] 2023-05-28 10:00:47 2023-05-28 10:00:47 Outpatient [facility] [id number] [facility] 2023-05-28 00:00:00 2023-05-28 00:00:00 Travel [facility] [id number] [facility] 2023-05-26 09:00:00 2023-05-26 09:00:00 Hospital Encounter Adam Garcia [facility] [id number] [facility] 2023-05-26 00:00:00 2023-05-26 00:00:00 Outpatient ADAM BRANTLEY [facility] [id number] [facility] 2023-05-26 00:00:00 2023-05-26 00:00:00 Outpatient NICOLETTE LIPSCOMB [facility] [id number] [facility] 2023-05-26 00:00:00 2023-05-26 00:00:00 Travel [facility] [id number] [facility] 2023-05-13 11:43:03 2023-05-13 11:43:03 Outpatient S[facility] 1025 Adria Martínez 2023-05-12 00:00:00 2023-05-12 00:00:00 Orders Only Adam Garcia [facility] [id number] [facility] 2023-05-08 14:11:21 2023-05-08 14:11:21 Outpatient [facility] 1020 Adria Martínez 2023-03-29 19:25:00 2023-04-02 20:48:00 Inpatient ER THOMAS LOZOYA [facility] Neurology [id number] [facility] 2023-03-29 19:25:00 2023-04-02 20:48:00 Hospital Encounter ER Connie Davey Shireen Kulkarni, Mrinalini Z [facility] [id number] [facility] 2023-03-31 08:32:56 2023-03-31 00:00:00 Inpatient ER MARIAH ALDRIDGE [facility] [id number] [facility] 2023-03-30 10:24:12 2023-03-30 23:59:00 Outpatient ER CONNIE DAVEY [facility] [id number] [facility] 2023-03-30 09:40:00 2023-03-30 23:59:00 Hospital Encounter Connie Davey [facility] [id number] [facility] 2023-03-30 13:46:20 2023-03-30 13:46:20 Outpatient ER MARIAH ALDRIDGE [facility] [id number] [facility] 2023-03-30 13:46:14 2023-03-30 13:46:14 Outpatient ER MARIAH ALDRIDGE [facility] [id number] [facility] 2023-03-30 10:24:04 2023-03-30 10:24:04 Outpatient ER CONNIE DAVEY [facility] [id number] [facility] 2023-03-30 00:00:00 2023-03-30 00:00:00 Orders Only [facility] [id number] [facility] 2023-03-30 00:00:00 2023-03-30 00:00:00 Travel [facility] [id number] [facility] 2022-12-11 08:56:00 2022-12-11 15:29:00 Emergency X Alfonso ALVARADO [facility] ERT [id number] [facility] 2022-12-11 08:56:00 2022-12-11 15:29:00 Emergency Alfonso Alvarado [facility] 1.2.840.114 350.1.13.10 4.2.7.2.686 [id number] [facility] 2022-11-17 17:25:00 2022-11-18 01:19:00 Emergency X RITCHIE WARREN [facility] ERT [id number] [facility] 2022-11-17 17:25:00 2022-11-18 01:19:00 Emergency Ritchie Warren [facility] 1.2.840.114 350.1.13.10 4.2.7.2.686 [id number] [facility] 2022-08-28 00:00:00 2022-08-28 00:00:00 Patient Outreach Shy Beckman 1.2.840.114 350.1.13.10 4.2.7.2.686 [id number] [facility] 2022-08-20 00:00:00 2022-08-20 00:00:00 Patient Outreach Shy Beckman 1.2.840.114 350.1.13.10 4.2.7.2.686 [id number] [facility] 2022-08-02 17:30:00 2022-08-03 14:29:00 Hospital Encounter Halima Guan Kinjal M Ibe, Chimkama Ngozi Cynthia [facility] [id number] [facility] 2022-08-02 17:30:00 2022-08-03 14:29:00 Outpatient ER PARRISH DIANE [facility] Neurology [id number] [facility] 2022-08-03 00:00:00 2022-08-03 00:00:00 Orders Only [facility] [id number] [facility] 2022-08-02 00:00:00 2022-08-02 00:00:00 Travel [facility] [id number] [facility] 2022-07-31 11:42:00 2022-08-01 21:48:00 Inpatient X DAMI LOWRY [facility] [id number] [facility] 2022-07-31 11:42:00 2022-08-01 21:48:00 Hospital Encounter Megan Rondon Dami [facility] [id number] [facility] 2022-08-01 00:00:00 2022-08-01 00:00:00 Transition of Care Maria Teresa Nicole [id number] [facility] 2022-07-28 14:41:38 2022-07-28 14:41:38 Outpatient [facility] [id number] Adria F Mauricio 2022-07-28 00:00:00 2022-07-28 00:00:00 Outpatient Visit [id number] 2022-07-24 13:24:40 2022-07-24 13:24:40 Outpatient [facility] [id number] Adria F Mauricio 2022-05-23 14:51:01 2022-05-23 14:51:01 Outpatient [facility] [id number] Adria F Mauricio 2022-05-23 00:00:00 2022-05-23 00:00:00 Outpatient Visit [id number] 2022-05-04 20:22:00 2022-05-08 14:44:00 Outpatient X CHANTEL BOJORQUEZ [facility] [id number] [facility] 2022-05-04 20:22:00 2022-05-08 14:44:00 Emergency Brandyn Ibrahim [place] [facility] 1.2840.114 350.1.13.10 4.2.7.2.686 [id number] [facility] 2022-04-13 13:06:00 2022-04-15 15:00:00 Inpatient X [facility] [id number] [facility] 2022-04-13 13:06:00 2022-04-15 15:00:00 Hospital Encounter Sapna Vargas Muhammad Zeeshan [facility] 1.2840.114 350.1.13.10 4.2.7.2.686 [id number] [facility] 2022-02-19 10:20:00 2022-02-19 10:30:00 Imm/Inj Visit [facility] Dangelo Pak [facility] 1.84.114 350.1.13.10 4.2.7.2.686 [id number] [facility] 2022-02-19 10:20:00 2022-02-19 10:20:00 Outpatient R JOSE PAK [facility] [id number] [facility] 2021-11-23 15:07:00 2021-11-23 17:03:00 Emergency X [facility] ERT [id number] [facility] 2021-11-23 15:07:00 2021-11-23 17:03:00 Emergency Megan Rondon Folusho F [facility] 1.2840.114 350.1.13.10 4.2.7.2.686 [id number] [facility] 2021-11-21 09:40:00 2021-11-21 09:40:00 Outpatient R [facility] [id number] [facility] 2021-05-24 09:30:00 2021-05-24 09:30:00 Outpatient R JOSE PAK [facility] [id number] [facility] 2021-05-24 08:47:51 2021-05-24 08:57:51 Imm/Inj Visit Vaccine, [place] Dangelo Pak [facility] 1.2840.114 350.1.13.10 4.2.7.2.686 [id number] [facility] 2021-05-03 09:40:00 2021-05-03 09:59:35 Outpatient R JOSE PAK [facility] [id number] [facility] 2021-05-03 09:17:43 2021-05-03 09:59:35 Imm/Inj Visit Vaccine, [place] Dangelo Pak [facility] 1.2840.114 350.1.13.10 4.2.7.2.686 [id number] [facility] 2021-04-16 00:00:00 2021-04-16 00:00:00 Orders Only Doctor Unassigned, [place] [facility] 1.2.840.114 350.1.13.10 4.2.7.2.686 [id number] [facility] 2021-03-17 00:00:00 2021-03-17 00:00:00 Telephone Miky Nava [facility] 1.2840.114 350.1.13.10 4.2.7.2.686 [id number] [facility] 2021-03-16 20:08:00 2021-03-16 23:24:00 Emergency Fabrice Chakraborty [facility] 1.2.840.114 350.1.13.10 4.2.7.2.686 [id number] [facility] 2021-03-14 18:59:34 2021-03-14 20:19:13 Urgent Care DamienalbinLydia conde Unknown, Attending [facility] 1.2.840.114 350.1.13.10 4.2.7.2.686 [id number] [facility] 2021-03-14 19:00:00 2021-03-14 19:00:00 Outpatient R UNKNOWN, ATTENDING [facility] [id number] [facility] 2021-02-19 10:49:00 2021-02-19 14:48:00 Emergency Monroy Estefania S [facility] 1.2.840.114 350.1.13.10 4.2.7.2.686 [id number] [facility] 2019-03-09 00:00:00 2019-03-09 00:00:00 Yehuda Zimmerman [facility] 1.2.840.114 350.1.13.10 4.2.7.2.686 [id number] 2019-03-09 00:00:00 2019-03-09 00:00:00 Yehuda Zimmerman [facility] 1.2.840.114 350.1.13.10 4.2.7.2.686 [id number] [facility] Results Test Description Test Time Test Comments Results Result Co mments Source [facility] (NA, K, CL, CO2, GLUCOSE, BUN, CREATININE, CA)2024-04-03 02:26:01* Test Item Value Reference Range Interpretation Comme nts NA (test code = 5132343312) 136 mmol/L 135-145 K (test code = 8238699576) 3.2 mmol/L 3.5-5.0 L CL (test code = 2347303239) 101 mmol/L 98-108 CO2 TOTAL (test code = 6461147743) 23 mmol/L 23-31 AGAP (test code = 2631383746) 12 2-16 BUN (test code = 7716539530) 4 mg/dL 7-23 L GLUCOSE (test code = 3177156696) 165 mg/dL 70-110 H CREATININE (test code = 2160-0) 0.67 mg/dL 0.50-1.04 CALCIUM (test code = 1914847181) 8.5 mg/dL 8.6-10.6 L eGFR (test code = 92921-0) 105.3 mL/min/1.73m2 CKD-EPI eGFR (2020). Assuming creatinine has been stable day-to-day for at least three months, the eGFR indicates Category G1 (>= 90 mL/min/1.73 m2) Lab Interpretation (test code = 43381-3) Abnormal [facility] with [id number] 02:19:04* Test Item Value Reference Range Interpretation [...] g/dL 31.6-35.1 L RDW-SD (test code = 00344-7) 53.9 fL 39.0-49.9 H RDW-CV (test code = 788-0) 18.2 % 12.0-15.5 H PLT (test code = 777-3) 458 166-358 H MPV (test code = 71262-0) 8.6 fL 9.5-12.9 L NRBC/100 WBC (test code = 1330168260) 0.0 0.0-10.0 NRBC x10^3 (test code = 9634118819) See_Comment [Automated messa ge] The system which generated this result transmitted reference range: 10*3/?L. The reference range was not used to interpret this result as normal/abnormal. GRAN MAT (NEUT) % (test code = 770-8) 62.8 % IMM GRAN % (test code = 5526092479) 0.40 % LYMPH % (test code = 736-9) 28.0 % MONO % (test code = 5905-5) 6.5 % EOS % (test code = 713-8) 1.3 % BASO % (test code = 706-2) 1.0 % GRAN MAT x10^3(ANC) (test code = 2853303448) 4.36 10*3/uL 1.88-7.09 IMM GRAN x10^3 (test code = 0811612194) 0.03 10*3/uL 0.00-0.06 LYMPH x10^3 (test code = 731-0) 1.94 10*3/uL 1.32-3.29 MONO x10^3 (test code = 742-7) 0.45 10*3/uL 0.33-0.92 EOS x10^3 (test code = 711-2) 0.09 10*3/uL 0.03-0.39 BASO x10^3 (test code = 704-7) 0.07 10*3/uL 0.01-0.07 Lab Interpretation (test code = 70050-9) Abnormal [facility] Whole [id number] 02:05:20* Test Item Value Reference Range Interpretation Comme nts LACTIC ACID (test code = 1411744474) 2.61 mmol/L 0.50-2.20 H Lab Interpretation (test cod e = 32965-5) Abnormal [facility]rop[facility] [id number] 04:25:23* Test Item Value Reference Range Interpretation Comme nts TROPONIN I (test code = 3679705586) 0.004 ng/mL <=0.034 LYNDSAY (test code = [...] of biotin. Lab Interpretation (test code = 50453-5) Normal [facility]. Metabolic Panel (69705)2024-01-13 04:13:41* Test Item Value Reference Range Interpretation Comme nts NA (test code = 7627024269) 140 mmol/L 135-145 K (test code = 8643423872) 3.7 mmol/L 3.5-5.0 CL (test code = 7972422274) 103 mmol/L 98-108 CO2 TOTAL (test code = 4570724704) 25 mmol/L 23-31 AGAP (test code = 7724841786) 12 2-16 BUN (test code = 7734379292) 12 mg/dL 7-23 GLUCOSE (test code = 1044835773) 143 mg/dL 70-110 H CREATININE (test code = 2160-0) 0.91 mg/dL 0.50-1.04 TOTAL BILI (test code = 6351239095) 0.4 mg/dL 0.1-1.1 CALCIUM (test code = 9282049302) 9.0 mg/dL 8.6-10.6 T PROTEIN (test code = 2345345209) 7.7 g/dL 6.3-8.2 ALBUMIN (test code = 4723551137) 4.2 g/dL 3.5-5.0 ALK PHOS (test code = 3077236266) 93 U/L 34-122 ALTv (test code = 1742-6) 9 U/L 5-35 AST(SGOT) (test code = 2272289494) 18 U/L 13-40 eGFR (test code = 58239-1) 76.5 mL/min/1.73m2 CKD-EPI eGFR (2020). Assuming creatinine has been stable day-to-day for at least three months, the eGFR indicates Category G2 (60 - 89 mL/min/1.73 m2) Lab Interpretation (test code = 29264-4) Abnormal [facility] with [id number] 03:58:19* Test Item Value Reference Range Interpretation [...] g/dL 31.6-35.1 L RDW-SD (test code = 23021-8) 59.0 fL 39.0-49.9 H RDW-CV (test code = 788-0) 18.7 % 12.0-15.5 H PLT (test code = 777-3) 394 166-358 H MPV (test code = 12714-8) 8.5 fL 9.5-12.9 L NRBC/100 WBC (test code = 2455847372) 0.0 0.0-10.0 NRBC x10^3 (test code = 5526689169) See_Comment [Automated messa ge] The system which generated this result transmitted reference range: 10*3/?L. The reference range was not used to interpret this result as normal/abnormal. GRAN MAT (NEUT) % (test code = 770-8) 60.6 % IMM GRAN % (test code = 9376449345) 1.40 % LYMPH % (test code = 736-9) 26.9 % MONO % (test code = 5905-5) 8.7 % EOS % (test code = 713-8) 1.8 % BASO % (test code = 706-2) 0.6 % GRAN MAT x10^3(ANC) (test code = 0880726248) 5.14 10*3/uL 1.88-7.09 IMM GRAN x10^3 (test code = 6104359117) 0.12 10*3/uL 0.00-0.06 H LYMPH x10^3 (test code = 731-0) 2.28 10*3/uL 1.32-3.29 MONO x10^3 (test code = 742-7) 0.74 10*3/uL 0.33-0.92 EOS x10^3 (test code = 711-2) 0.15 10*3/uL 0.03-0.39 BASO x10^3 (test code = 704-7) 0.05 10*3/uL 0.01-0.07 Lab Interpretation (test code = 81231-4) Abnormal [facility] (TTE)2024-01-10 16:40:03* Test Item Value Reference Range Interpretation Comme nts Height (test code = 8266752221) 62 in Weight (test code = 1963048317) 200 lbs Systolic BP (test code = 2482836185) 90 mmHg Diastolic BP (test code = 2385054054) 66 mmHg Heart Rate (test code = 9380413405) 69 bpm BSA (test code = 3161568459) 1.91 m2 LVOT diameter (test code = 9510394508) 2.13 cm LVOT area (test code = 4275415878) 3.60 cm2 LA size (test code = 3135498329) 3.5 cm LAV(MOD-sp4) (test code = 6589063299) 55.70 mL E wave decelartion time (test code = 1969336519) 0.12 s MV stenosis pressure 1/2 time (test code = 3650602363) 35.0 ms MV Peak A Evette (test code = 3655177250) 117.0 cm/s MV Peak E Evette (test code = 1143265008) 94.3 cm/s E/A ratio (test code = 3678437197) 0.81 ratio MV E/e' septal (test code = 1548681403) 10.2 cm/s LVOT stroke volume (test code = 9751772753) 59.50 cm3 LVOT peak evette (test code = 0164699616) 99.8 cm/s LVOT mn grad (test code = 1597598428) 1.9 mmHg AV LVOT peak gradient (test code = 9433230862) 4.0 mmHg LVOT peak VTI (test code = 7455589773) 16.7 cm LV V1 mean (test code = 9318594074) 64.40 cm/s Aortic valve mean velocity (test code = 8065380915) 155.3 cm/s Ao peak evette (test code = 0153892136) 222.6 cm/s Ao VTI (test code = 0686508808) 33.6 cm AV area by cont VTI (test code = 6943900006) 1.8 cm2 AV area peak evette (test code = 1366327193) 1.6 cm2 Ao max PG (test code = 9103262285) 19.80 mm[Hg] AV peak gradient (test code = 8683516729) 19.8 mmHg AV valve area (test code = 8889726301) 1.77 cm2 AV mean gradient (test code = 2843008782) 10.6 mmHg AV regurgitation pressure 1/2 time (test code = 0062612927) 651.6 ms AI dec slope (test code = 2769717568) 180.60 cm/s2 AI max evette (test code = 4569382476) 401.80 cm/s AI max PG (test code = 1225778145) 64.60 mm[Hg] LVIDD (test code = 0469082766) 4.90 cm Left Ventricular End Diastolic Volume by Teichholz Method (test code = 6618653) 114.6 mL IVS (test code = 8093384530) 1.17 cm Interventricular Septum Diastolic Thickness by 2D (test code = 2489515) 1.17 cm LVPWD (test code = 2200013439) 1.17 cm PW (test code = 1576310772) 1.17 cm 0.6-1.1 EF(Teich) (test code = 5625590896) 20.70 % LVIDS (test code = 8433640651) 4.50 cm Left Ventricular End Systolic Volume by Teichholz Method (test code = 7680945) 90.9 mL FS (test code = 2453616316) 9 % EF - 2D (test code = 89012651) 20.70 % Radiology Study observation (narrative) (test code = 89502-1) LYNDSAY (test code = LYNDSAY) ?Left?Ventricle: Left [...] [facility] Whole [id number] 02:02:28* Test Item Value Reference Range Interpretation Comme nts LACTIC ACID (test code = 9253689959) 1.36 mmol/L 0.50-2.20 Lab Interpretation (test cod e = 89178-7) Normal [facility] CHEST PULMONARY [id number] 01:16:45CTA CHEST WITH IV CONTRAST ORDERING PHYSICIAN: [...] spine.[facility]hamXR CHEST 1 [id number] 23:07:58Exam: Chest (1 View), 01/09/2024 4:15 PM. [...] seen.[facility] BrenhamTROPONIN [id number] 22:51:19* Test Item Value Reference Range Interpretation Comme nts TROPONIN I (test code = 8061729863) 0.006 ng/mL <=0.034 LYNDSAY (test code = [...] of biotin. Lab Interpretation (test code = 65723-8) Normal [facility]hamN-TERMINAL [id number]-[id number] 22:48:38* Test Item Value Reference Range Interpretation Comme nts NT-proBNP (test code = 95086-9) 877 pg/mL <=125 LYNDSAY (test code = LYNDSAY) Result Indeterminate-Consid er causes of NT-proBNP elevation other than Heart failure such as acute coronary syndrome, pulmonary embolism, pulmonary hypertension, sepsis, stroke, and renal dysfunction. Lab Interpretation (test code = 18049-3) Abnormal [facility]. METABOLIC PANEL (09107)2024-01-09 22:42:20* Test Item Value Reference Range Interpretation Comme nts NA (test code = 8515687661) 137 mmol/L 135-145 K (test code = 8386895759) 3.8 mmol/L 3.5-5.0 CL (test code = 4784334997) 104 mmol/L 98-108 CO2 TOTAL (test code = 7858671894) 25 mmol/L 23-31 AGAP (test code = 1233317617) 8 2-16 BUN (test code = 4761362161) 7 mg/dL 7-23 GLUCOSE (test code = 7706838572) 96 mg/dL 70-110 CREATININE (test code = 2160-0) 0.60 mg/dL 0.50-1.04 TOTAL BILI (test code = 7974444945) 0.4 mg/dL 0.1-1.1 CALCIUM (test code = 1566460326) 8.7 mg/dL 8.6-10.6 T PROTEIN (test code = 3582147781) 7.0 g/dL 6.3-8.2 ALBUMIN (test code = 4261077958) 3.9 g/dL 3.5-5.0 ALK PHOS (test code = 3875670829) 101 U/L 34-122 ALTv (test code = 1742-6) 7 U/L 5-35 AST(SGOT) (test code = 0913874435) 20 U/L 13-40 eGFR (test code = 29077-1) 108.8 mL/min/1.73m2 CKD-EPI eGFR (20 21). Assuming creatinine has been stable day-to-day for at least three months, the eGFR indicates Category G1 (>= 90 mL/min/1.73 m2) [facility]hamD-TFUQY0430-82-69 22:28:57* Test Item Value Reference Range Interpretation Comments D-DIMER (test code = 3666871274) 0.87 See_Comment H [Automated message] The system [...] a diagnosis. Lab Interpretation (test code = 59500-9) Abnormal [facility] WITH [id number] 22:09:01* Test Item Value Reference Range Interpretation [...] g/dL 31.6-35.1 L RDW-SD (test code = 61451-1) 58.1 fL 39.0-49.9 H RDW-CV (test code = 788-0) 18.6 % 12.0-15.5 H PLT (test code = 777-3) 312 166-358 MPV (test code = 91066-9) 8.3 fL 9.5-12.9 L NRBC/100 WBC (test code = 7565624799) 0.0 0.0-10.0 NRBC x10^3 (test code = 4657440491) See_Comment [Automated messa ge] The system which generated this result transmitted reference range: 10*3/?L. The reference range was not used to interpret this result as normal/abnormal. GRAN MAT (NEUT) % (test code = 770-8) 60.1 % IMM GRAN % (test code = 4993976819) 0.70 % LYMPH % (test code = 736-9) 27.3 % MONO % (test code = 5905-5) 10.1 % EOS % (test code = 713-8) 1.2 % BASO % (test code = 706-2) 0.6 % GRAN MAT x10^3(ANC) (test code = 0730106636) 5.12 10*3/uL 1.88-7.09 IMM GRAN x10^3 (test code = 3774396106) 0.06 10*3/uL 0.00-0.06 LYMPH x10^3 (test code = 731-0) 2.33 10*3/uL 1.32-3.29 MONO x10^3 (test code = 742-7) 0.86 10*3/uL 0.33-0.92 EOS x10^3 (test code = 711-2) 0.10 10*3/uL 0.03-0.39 BASO x10^3 (test code = 704-7) 0.05 10*3/uL 0.01-0.07 Lab Interpretation (test code = 24830-8) Abnormal [facility]hamPONC GLUCOSE (AUTOMATED)2023-12-15 12:45:21* Test Item Value Reference Range Interpretation Comme nts POCT GLU (test code = 6872267519) 144 mg/dL 70-110 H Lab Interpretation (test cod e = 54138-1) Abnormal [facility] BrenhamThyroid Stimulating Npanxvk8578-34-94 01:46:59 * Test Item Value Reference Range Interpretation Comme nts TSH (test code = 0185529420) 1.14 0.45-4.70 Lab Interpretation (test cod e = 02308-3) Normal [facility] [id number] 01:33:00* Test Item Value Reference Range Interpretation Comme nts FREE T3 (test code = 5897996162) 3.68 pg/mL 2.77-5.27 Lab Interpretation (test cod e = 73869-0) Normal [facility]hamPOCT GLUCOSE (AUTOMATED)2023-12-15 00:57:48* Test Item Value Reference Range Interpretation Comme nts POCT GLU (test code = 1547578110) 131 mg/dL 70-110 H Lab Interpretation (test cod e = 76341-6) Abnormal [facility]hamTroponin [id number] 21:45:52* Test Item Value Reference Range Interpretation Comme nts TROPONIN I (test code = 6763238220) 0.009 ng/mL <=0.034 LYNDSAY (test code = [...] of biotin. Lab Interpretation (test code = 94227-4) Normal [facility]. Metabolic Panel (52340)2023-12-14 20:19:49* Test Item Value Reference Range Interpretation Comme nts NA (test code = 8797155412) 138 mmol/L 135-145 K (test code = 3542346262) 3.5 mmol/L 3.5-5.0 CL (test code = 8598672311) 108 mmol/L 98-108 CO2 TOTAL (test code = 8262521459) 24 mmol/L 23-31 AGAP (test code = 5057973193) 6 2-16 BUN (test code = 5326731097) 7 mg/dL 7-23 GLUCOSE (test code = 2669294306) 96 mg/dL 70-110 CREATININE (test code = 2160-0) 0.51 mg/dL 0.50-1.04 TOTAL BILI (test code = 1854580761) 0.4 mg/dL 0.1-1.1 CALCIUM (test code = 8947788906) 8.6 mg/dL 8.6-10.6 T PROTEIN (test code = 9828876481) 6.8 g/dL 6.3-8.2 ALBUMIN (test code = 4808021322) 3.8 g/dL 3.5-5.0 ALK PHOS (test code = 3060756094) 107 U/L 34-122 ALTv (test code = 1742-6) 13 U/L 5-35 AST(SGOT) (test code = 3248211839) 28 U/L 13-40 eGFR (test code = 45126-5) 113.2 mL/min/1.73m2 CKD-EPI eGFR (20 21). Assuming creatinine has been stable day-to-day for at least three months, the eGFR indicates Category G1 (>= 90 mL/min/1.73 m2) [facility]hamTroponin [id number] 20:15:27* Test Item Value Reference Range Interpretation Comme nts TROPONIN I (test code = 6602591591) 0.009 ng/mL <=0.034 LYNDSAY (test code = [...] of biotin. Lab Interpretation (test code = 99823-1) Normal [facility]hamN-Terminal Awd-Yss0502-07-27 20:12:51* Test Item Value Reference Range Interpretation Comme nts NT-proBNP (test code = 88824-7) 2250 pg/mL <=125 H LYNDSAY (test code = LYNDSAY) Positive: Heart Failure Likely Lab Interpretation (test code = 64327-5) Abnormal [facility]hamXR CHEST 1 [id number] 20:00:17EXAM: XR CHEST 1 VW COMPARISON: 12/02/2023 HISTORY: 53 years-old Female; shortness of breath FINDINGS: Lungs: The lung volumes are normal. Left upper lung calcified granuloma. Nofocal opacities. No pneumothorax. No pleural effusion. Heart/Mediastinum: The cardiac silhouette appears normal. Bones andsoft tissues: No acute osseous findings are detected.Redemonstrated ACDF projecting over the lower cervical spine.[facility]hamD-Hhnie1138-70-04 19:45:05* Test Item Value Reference Range Interpretation Comments D-DIMER (test code = 0581508507) 1.33 See_Comment H [Automated message] The system [...] a diagnosis. Lab Interpretation (test code = 25555-1) Abnormal [facility] BrenhamCbc with [id number] 19:39:29* Test Item Value Reference Range Interpretation [...] g/dL 31.6-35.1 L RDW-SD (test code = 36794-0) 70.2 fL 39.0-49.9 H RDW-CV (test code = 788-0) 21.6 % 12.0-15.5 H PLT (test code = 777-3) 259 166-358 MPV (test code = 33559-0) 8.7 fL 9.5-12.9 L NRBC/100 WBC (test code = 9311822777) 0.0 0.0-10.0 NRBC x10^3 (test code = 4747586996) See_Comment [Automated messa ge] The system which generated this result transmitted reference range: 10*3/?L. The reference range was not used to interpret this result as normal/abnormal. GRAN MAT (NEUT) % (test code = 770-8) 57.7 % IMM GRAN % (test code = 7914375357) 0.40 % LYMPH % (test code = 736-9) 30.2 % MONO % (test code = 5905-5) 9.9 % EOS % (test code = 713-8) 0.8 % BASO % (test code = 706-2) 1.0 % GRAN MAT x10^3(ANC) (test code = 9497250167) 4.17 10*3/uL 1.88-7.09 IMM GRAN x10^3 (test code = 3068206351) 0.03 10*3/uL 0.00-0.06 LYMPH x10^3 (test code = 731-0) 2.19 10*3/uL 1.32-3.29 MONO x10^3 (test code = 742-7) 0.72 10*3/uL 0.33-0.92 EOS x10^3 (test code = 711-2) 0.06 10*3/uL 0.03-0.39 BASO x10^3 (test code = 704-7) 0.07 10*3/uL 0.01-0.07 Lab Interpretation (test code = 77426-1) Abnormal [facility] GLUCOSE (AUTOMATED)2023-12-03 21:30:58* Test Item Value Reference Range Interpretation Comme nts POCT GLU (test code = 9874708907) 102 mg/dL 70-110 Lab Interpretation (test cod e = 64402-0) Normal [facility] Metabolic Panel (NA, K, CL, CO2, GLUCOSE, BUN, CREATININE, CA)2023-12-03 18:22:31* Test Item Value Reference Range Interpretation Comme nts NA (test code = 1915962677) 135 mmol/L 135-145 K (test code = 6585598381) 3.9 mmol/L 3.5-5.0 CL (test code = 1747726403) 103 mmol/L 98-108 CO2 TOTAL (test code = 5970662910) 29 mmol/L 23-31 AGAP (test code = 1165885915) 3 2-16 BUN (test code = 7317007311) 12 mg/dL 7-23 GLUCOSE (test code = 1623326942) 85 mg/dL 70-110 CREATININE (test code = 2160-0) 0.63 mg/dL 0.50-1.04 CALCIUM (test code = 6600880569) 8.7 mg/dL 8.6-10.6 eGFR (test code = 41479-6) 107.6 mL/min/1.73m2 CKD-EPI eGFR (20 21). Assuming creatinine has been stable day-to-day for at least three months, the eGFR indicates Category G1 (>= 90 mL/min/1.73 m2) [facility] GLUCOSE (AUTOMATED)2023-12-03 16:52:56* Test Item Value Reference Range Interpretation Comme nts POCT GLU (test code = 1797408055) 98 mg/dL 70-110 Lab Interpretation (test cod e = 40967-8) Normal [facility] GLUCOSE (AUTOMATED)2023-12-03 13:01:11* Test Item Value Reference Range Interpretation Comme nts POCT GLU (test code = 0959105556) 102 mg/dL 70-110 Lab Interpretation (test cod e = 73511-7) Normal [facility] Metabolic Panel (NA, K, CL, CO2, GLUCOSE, BUN, CREATININE, CA)2023-12-03 10:22:08* Test Item Value Reference Range Interpretation Comme nts NA (test code = 4066195237) 138 mmol/L 135-145 K (test code = 1770820176) 3.2 mmol/L 3.5-5.0 L CL (test code = 2310426677) 105 mmol/L 98-108 CO2 TOTAL (test code = 1186007126) 26 mmol/L 23-31 AGAP (test code = 5713709982) 7 2-16 BUN (test code = 3239585173) 11 mg/dL 7-23 GLUCOSE (test code = 0667527226) 96 mg/dL 70-110 CREATININE (test code = 2160-0) 0.61 mg/dL 0.50-1.04 CALCIUM (test code = 7154463564) 8.6 mg/dL 8.6-10.6 eGFR (test code = 75954-7) 108.4 mL/min/1.73m2 CKD-EPI eGFR (2020). Assuming creatinine has been stable day-to-day for at least three months, the eGFR indicates Category G1 (>= 90 mL/min/1.73 m2) Lab Interpretation (test code = 60294-1) [facility]:22:08* Test Item Value Reference Range Interpretation Comme nts MAGNESIUM (test code = 3996165774) 1.9 mg/dL 1.7-2.4 Lab Interpretation (test cod e = 25213-8) [facility] (17980[facility] (ALB,T.PRO,BILI T,BU/BC,ALT,AST,ALK PHOS)2023-12-03 10:22:08* Test Item Value Reference Range Interpretation Comme nts TOTAL BILI (test code = 7167624694) 0.5 mg/dL 0.1-1.1 BILI UNCON (test code = 0722213226) 0.2 mg/dL 0.1-1.1 BILI CONJ (test code = 7106371213) 0.0 mg/dL 0.0-0.3 T PROTEIN (test code = 8340078385) 6.7 g/dL 6.3-8.2 ALBUMIN (test code = 4238029717) 3.7 g/dL 3.5-5.0 ALK PHOS (test code = 2837041343) 135 U/L 34-122 H ALTv (test code = 1742-6) 26 U/L 5-35 AST(SGOT) (test code = 4385773906) 24 U/L 13-40 Lab Interpretation (test cod e = 31726-1) [facility] + Lactic [id number] 02:00:25* Test Item Value Reference Range Interpretation Comme nts PH (test code = 6190716927) 7.40 7.32-7.42 PCO2 NOEMI (test code = 8263988230) 40 41-51 L PO2 NOEMI (test code = 6737523209) 34 25-40 HCO3 NOEMI (test code = 7707850351) 24 24-28 AC VBE(BEAKER) (test code = 9373624274) -0.8 mEq/L THB NOEMI (test code = 6002859550) 9.3 g/dL 12.0-16.0 L %O2HB NOEMI (test code = 4210004502) 57.9 % 52.0-63.0 %COHB NOEMI (test code = 1670111020) 1.1 % 0.0-1.5 %METHB NOEMI (test code = 6592800180) 0.3 % 0.4-1.5 L VOL%O2 NOEMI (test code = 0737746622) 7.6 % 6.0-12.0 NA (test code = 4889432403) 139 mmol/L 135-145 K+ (test code = 5138937842) 3.5 mmol/L 3.5-5.0 AC CA IONZ (test code = 2043369546) 4.50 mg/dL 4.50-5.30 GLUCOSE (test code = 4918439626) 88 mg/dL 70-110 LACTIC ACID (test code = 7445794693) 1.63 mmol/L 0.50-2.20 QUES Lab Interpretation (test cod e = 06335-9) [facility] [id number] 19:47:28HISTORY: Chest pain, rule out P.E. TECHNIQUE: [...] study.[facility] [facility] [id number] 19:38:49* Test Item Value Reference Range Interpretation Comme nts TROPONIN I (test code = 0497639963) 0.020 ng/mL <=0.034 LYNDSAY (test code = [...] of biotin. Lab Interpretation (test code = 50076-6) Normal [facility] Pfs-Gtz0333-10-15 19:37:29* Test Item Value Reference Range Interpretation Comme nts NT-proBNP (test code = 02650-7) 3420 pg/mL <=125 H LYNDSAY (test code = LYNDSAY) Positive: Heart Failure Likely Lab Interpretation (test code = 13392-2) [facility]normal [facility]hamCbc with Dyzl4381-44-31 19:28:47* Test Item Value Reference Range Interpretation [...] g/dL 31.6-35.1 L RDW-SD (test code = 21236-7) 68.9 fL 39.0-49.9 H RDW-CV (test code = 788-0) 22.6 % 12.0-15.5 H PLT (test code = 777-3) 379 166-358 H MPV (test code = 96044-8) 9.1 fL 9.5-12.9 L NRBC/100 WBC (test code = 5720413878) 0.0 0.0-10.0 NRBC x10^3 (test code = 0942478078) See_Comment [Automated messa ge] The system which generated this result transmitted reference range: 10*3/?L. The reference range was not used to interpret this result as normal/abnormal. GRAN MAT (NEUT) % (test code = 770-8) 73.5 % IMM GRAN % (test code = 0522104596) 1.70 % LYMPH % (test code = 736-9) 14.9 % MONO % (test code = 5905-5) 8.3 % EOS % (test code = 713-8) 1.2 % BASO % (test code = 706-2) 0.4 % GRAN MAT x10^3(ANC) (test code = 7735944623) 8.05 10*3/uL 1.88-7.09 H IMM GRAN x10^3 (test code = 9556184677) 0.19 10*3/uL 0.00-0.06 H LYMPH x10^3 (test code = 731-0) 1.63 10*3/uL 1.32-3.29 MONO x10^3 (test code = 742-7) 0.91 10*3/uL 0.33-0.92 EOS x10^3 (test code = 711-2) 0.13 10*3/uL 0.03-0.39 BASO x10^3 (test code = 704-7) 0.04 10*3/uL 0.01-0.07 Lab Interpretation (test code = 36684-2) [facility]normal [facility]hamXR CHEST 1 [id number] 19:28:17HISTORY: Dyspnea. TECHNIQUE: Portable AP view of the chest is obtained. Comparison made with11/21/2023 study. FINDINGS: No acute pneumonia. No pneumothorax or pleural effusion orpulmonary congestion detected. Mild cardiomegaly noted. Multilevel lowercervical ACDF surgical changes partially visualized. Mild degenerativechanges noted in the right glenohumeral joint. CONCLUSIONS: Mild cardiomegaly.[facility]hamComp. Metabolic Panel ([id number]) 2023-12-02 19:27:30* Test Item Value Reference Range Interpretation Comme nts NA (test code = 6599412626) 138 mmol/L 135-145 K (test code = 6005935664) 3.8 mmol/L 3.5-5.0 CL (test code = 7136958892) 106 mmol/L 98-108 CO2 TOTAL (test code = 4182887508) 22 mmol/L 23-31 L AGAP (test code = 2548361424) 10 2-16 BUN (test code = 2175367927) 11 mg/dL 7-23 GLUCOSE (test code = 1536744504) 103 mg/dL 70-110 CREATININE (test code = 2160-0) 0.56 mg/dL 0.50-1.04 TOTAL BILI (test code = 1303027949) 0.8 mg/dL 0.1-1.1 CALCIUM (test code = 0622198744) 8.9 mg/dL 8.6-10.6 T PROTEIN (test code = 2308143830) 7.3 g/dL 6.3-8.2 ALBUMIN (test code = 2282125282) 3.9 g/dL 3.5-5.0 ALK PHOS (test code = 3221379790) 147 U/L 34-122 H ALTv (test code = 1742-6) 34 U/L 5-35 AST(SGOT) (test code = 6974404195) 30 U/L 13-40 eGFR (test code = 95058-3) 110.7 mL/min/1.73m2 CKD-EPI eGFR (2020). Assuming creatinine has been stable day-to-day for at least three months, the eGFR indicates Category G1 (>= 90 mL/min/1.73 m2) Lab Interpretation (test code = 80678-1) Abnormal [facility]hamN[facility] Oqa-Zon9586-43-11 17:53:15* Test Item Value Reference Range Interpretation Comme [facility] NT-proBNP (test code = 69430-7) 1070 pg/mL <=125 H LYNDSAY (test code = LYNDSAY) Positive: Heart Failure Likely Lab Interpretation (test code = 63342-1) Abnormal [facility]hamPOCT GLUCOSE (AUTOMATED)2023-11-28 16:41:29* Test Item Value Reference Range Interpretation Comme nts POCT GLU (test code = 3386912729) 129 mg/dL 70-110 H Lab Interpretation (test cod e = 63939-8) Abnormal [facility] BrenhamMagnesium2024-05-11 10:02:12* Test Item Value Reference Range Interpretation Comme nts MAGNESIUM (test code = 4329920863) 2.1 mg/dL 1.7-2.4 Lab Interpretation (test cod e = 24720-5) Normal [facility] BrenhamPhosphorus2024-05-11 10:02:12* Test Item Value Reference Range Interpretation Comme nts PHOSPHORUS (test code = 3855595693) 5.9 mg/dL 2.5-5.0 H Lab Interpretation (test cod e = 45920-7) Abnormal [facility]. Metabolic Panel (77920)2023-11-28 10:02:12* Test Item Value Reference Range Interpretation Comme nts NA (test code = 0021694806) 140 mmol/L 135-145 K (test code = 1132388365) 3.7 mmol/L 3.5-5.0 CL (test code = 9868792027) 98 mmol/L 98-108 CO2 TOTAL (test code = 7396632540) 33 mmol/L 23-31 H AGAP (test code = 7753776643) 9 2-16 BUN (test code = 8533874742) 24 mg/dL 7-23 H GLUCOSE (test code = 0066062551) 107 mg/dL 70-110 CREATININE (test code = 2160-0) 0.61 mg/dL 0.50-1.04 TOTAL BILI (test code = 8022008378) 0.6 mg/dL 0.1-1.1 CALCIUM (test code = 4421747651) 8.0 mg/dL 8.6-10.6 L T PROTEIN (test code = 0159990170) 6.0 g/dL 6.3-8.2 L ALBUMIN (test code = 9115753145) 3.4 g/dL 3.5-5.0 L ALK PHOS (test code = 1133590818) 173 U/L 34-122 H ALTv (test code = 1742-6) 61 U/L 5-35 H AST(SGOT) (test code = 4981728002) 29 U/L 13-40 eGFR (test code = 48259-1) 108.4 mL/min/1.73m2 CKD-EPI eGFR (2020). Assuming creatinine has been stable day-to-day for at least three months, the eGFR indicates Category G1 (>= 90 mL/min/1.73 m2) Lab Interpretation (test code = 53663-7) Abnormal [facility]hamCb with Yenv5855-85-25 09:37:29* Test Item Value Reference Range Interpretation [...] g/dL 31.6-35.1 L RDW-SD (test code = 66659-4) 65.6 fL 39.0-49.9 H RDW-CV (test code = 788-0) 22.0 % 12.0-15.5 H PLT (test code = 777-3) 292 166-358 MPV (test code = 47946-1) 9.1 fL 9.5-12.9 L NRBC/100 WBC (test code = 1168199245) 0.0 0.0-10.0 NRBC x10^3 (test code = 7376446008) See_Comment [Automated messa ge] The system which generated this result transmitted reference range: 10*3/?L. The reference range was not used to interpret this result as normal/abnormal. GRAN MAT (NEUT) % (test code = 770-8) 62.0 % IMM GRAN % (test code = 5427782735) 1.20 % LYMPH % (test code = 736-9) 28.5 % MONO % (test code = 5905-5) 7.3 % EOS % (test code = 713-8) 0.9 % BASO % (test code = 706-2) 0.1 % GRAN MAT x10^3(ANC) (test code = 4016328990) 4.98 10*3/uL 1.88-7.09 IMM GRAN x10^3 (test code = 8200739353) 0.10 10*3/uL 0.00-0.06 H LYMPH x10^3 (test code = 731-0) 2.29 10*3/uL 1.32-3.29 MONO x10^3 (test code = 742-7) 0.59 10*3/uL 0.33-0.92 EOS x10^3 (test code = 711-2) 0.07 10*3/uL 0.03-0.39 BASO x10^3 (test code = 704-7) 0.01-0.07 Lab Interpretation (test code = 21699-4) Abnormal [facility] GLUCOSE (AUTOMATED)2023-11-28 01:32:15* Test Item Value Reference Range Interpretation Comme nts POCT GLU (test code = 9340918956) 154 mg/dL 70-110 H Lab Interpretation (test cod e = 83707-8) Abnormal [facility] GLUCOSE (AUTOMATED)2023-11-27 21:45:44* Test Item Value Reference Range Interpretation Comme nts POCT GLU (test code = 9675525075) 183 mg/dL 70-110 H Lab Interpretation (test cod e = 09979-4) Abnormal [facility] GLUCOSE (AUTOMATED)2023-11-27 16:31:46* Test Item Value Reference Range Interpretation Comme nts POCT GLU (test code = 8963058747) 96 mg/dL 70-110 Lab Interpretation (test cod e = 33808-4) Normal [facility] GLUCOSE (AUTOMATED)2023-11-27 12:42:32* Test Item Value Reference Range Interpretation Comme nts POCT GLU (test code = 4608665057) 88 mg/dL 70-110 Lab Interpretation (test cod e = 73048-4) Normal [facility] BrenhamLamaic Acid Whole Zrvec9099-10-12 06:44:07* Test Item Value Reference Range Interpretation Comme nts LACTIC ACID (test code = 8355911089) 1.48 mmol/L 0.50-2.20 Lab Interpretation (test cod e = 19486-6) Normal [facility] GLUCOSE (AUTOMATED)2023-11-27 02:37:00* Test Item Value Reference Range Interpretation Comme nts POCT GLU (test code = 2285555723) 167 mg/dL 70-110 H Lab Interpretation (test cod e = 81176-0) Abnormal [facility] BrenhamValproic Acid, Gejk0393-54-55 00:22:04* Test Item Value Reference Range Interpretation Comme nts Valproic Acid, Free (test code = 1803986256) 23.8 ug/mL 4.0-15.0 H LYNDSAY (test code = LYNDSAY) Toxic Range: ? Greater than 15 ug/mL Test developed and characteristics determined by [facility] Laboratory Services. Lab Interpretation (test code = 89066-7) Abnormal [facility] BrenhamFolate2024-05-09 22:17:52* Test Item Value Reference Range Interpretation Comme nts FOLATE SER (test code = 3878181055) 10.9 ng/mL 3.0-20.0 Lab Interpretation (test cod e = 27146-0) Normal [facility] BrenhamVitamin B12, Lrrks1662-58-79 22:17:52* Test Item Value Reference Range Interpretation Comme nts VIT B12 (test code = 3450793580) 485 pg/mL 240-930 LYNDSAY (test code = LYNDSAY) Biotin has been reported to cause a positive bias, interpret results relative to patient's use of biotin. Lab Interpretation (test code = 50884-4) Normal [facility]hamCT HEAD WO [id number] 22:17:11EXAM: CT HEAD WO CONTRAST HISTORY: 53 [...] [facility]hamMagnesium2024-05-09 22:11:53* Test Item Value Reference Range Interpretation Comme nts MAGNESIUM (test code = 4036142321) 2.1 mg/dL 1.7-2.4 Lab Interpretation (test cod e = 12906-0) Normal [facility]hamCom[facility] Metabolic Panel (58369)2023-11-26 22:11:53* Test Item Value Reference Range Interpretation Comme nts NA (test code = 7213692102) 132 mmol/L 135-145 L K (test code = 4108438762) 4.3 mmol/L 3.5-5.0 CL (test code = 4916559550) 94 mmol/L 98-108 L CO2 TOTAL (test code = 7988340844) 34 mmol/L 23-31 H AGAP (test code = 6516829135) 4 2-16 BUN (test code = 5328324265) 24 mg/dL 7-23 H GLUCOSE (test code = 3015282996) 178 mg/dL 70-110 H CREATININE (test code = 2160-0) 0.62 mg/dL 0.50-1.04 TOTAL BILI (test code = 5252342816) 0.6 mg/dL 0.1-1.1 CALCIUM (test code = 6524056196) 8.0 mg/dL 8.6-10.6 L T PROTEIN (test code = 4249226074) 6.1 g/dL 6.3-8.2 L ALBUMIN (test code = 4581693334) 3.5 g/dL 3.5-5.0 ALK PHOS (test code = 6118882451) 212 U/L 34-122 H ALTv (test code = 1742-6) 80 U/L 5-35 H AST(SGOT) (test code = 4993669572) 51 U/L 13-40 H eGFR (test code = 14928-5) 108.0 mL/min/1.73m2 CKD-EPI eGFR (2020). Assuming creatinine has been stable day-to-day for at least three months, the eGFR indicates Category G1 (>= 90 mL/min/1.73 m2) Lab Interpretation (test code = 31451-6) [facility]normal [facility]hamPO[facility]OMATED)2023-11-26 21:19:06* Test Item Value Reference Range Interpretation Comme nts POCT GLU (test code = 2532068159) 224 mg/dL 70-110 H Lab Interpretation (test cod e = 12542-2) Abnormal [facility] BrenhamKeppra (Levetiracetam)2023-11-26 19:45:17* Test Item Value Reference Range Interpretation Comme nts KEPPRA (test code = 0736019662) 12-46 L LYNDSAY (test code = LYNDSAY) Therapeutic range: 12-46 ?g/mL ? ?Toxic: Not well established.Test developed and characteristics determined by [facility] Laboratory Services. Lab Interpretation (test code = 69053-0) Abnormal [facility] BrenhamLamaic Acid Whole Vbdef7739-37-82 18:11:07* Test Item Value Reference Range Interpretation Comme [facility] LACTIC ACID (test code = 9179767666) 6.19 mmol/L 0.50-2.20 H Lab Interpretation (test cod e = 84129-6) Abnormal [facility]hamPONC GLUCOSE (AUTOMATED)2023-11-26 17:06:14* Test Item Value Reference Range Interpretation Comme [facility] POCT GLU (test code = 1922685050) 293 mg/dL 70-110 H Lab Interpretation (test cod e = 17470-0) Abnormal [facility]hamComp. Metabolic Panel (68614)2023-11-26 14:21:31* Test Item Value Reference Range Interpretation Comme [facility] NA (test code = 0811428005) 140 mmol/L 135-145 K (test code = 4683543247) 3.9 mmol/L 3.5-5.0 CL (test code = 0312697511) 93 mmol/L 98-108 L CO2 TOTAL (test code = 2471853663) 38 mmol/L 23-31 H AGAP (test code = 3248190142) 9 2-16 BUN (test code = 6101209453) 25 mg/dL 7-23 H GLUCOSE (test code = 0572485984) 83 mg/dL 70-110 CREATININE (test code = 2160-0) 0.71 mg/dL 0.50-1.04 TOTAL BILI (test code = 6288736480) 0.7 mg/dL 0.1-1.1 CALCIUM (test code = 1716819800) 8.7 mg/dL 8.6-10.6 T PROTEIN (test code = 5883559598) 6.6 g/dL 6.3-8.2 ALBUMIN (test code = 8748357395) 3.6 g/dL 3.5-5.0 ALK PHOS (test code = 3010105082) 220 U/L 34-122 H ALTv (test code = 1742-6) 95 U/L 5-35 H AST(SGOT) (test code = 2030304553) 47 U/L 13-40 H eGFR (test code = 04836-7) 103.1 mL/min/1.73m2 CKD-EPI eGFR (2020). Assuming creatinine has been stable day-to-day for at least three months, the eGFR indicates Category G1 (>= 90 mL/min/1.73 m2) Lab Interpretation (test code = 88727-9) Abnormal [facility] BrenhamMagnesium2024-05-09 14:03:47* Test Item Value Reference Range Interpretation Comme nts MAGNESIUM (test code = 5483052356) 2.3 mg/dL 1.7-2.4 Lab Interpretation (test cod e = 22687-1) Normal [facility] with Tgzs4685-07-91 13:57:47* Test Item Value Reference Range Interpretation [...] g/dL 31.6-35.1 L RDW-SD (test code = 91233-1) 67.3 fL 39.0-49.9 H RDW-CV (test code = 788-0) 22.5 % 12.0-15.5 H PLT (test code = 777-3) 285 166-358 MPV (test code = 97612-9) 9.2 fL 9.5-12.9 L NRBC/100 WBC (test code = 6776756697) 0.3 0.0-10.0 NRBC x10^3 (test code = 1530084482) 0.03 See_Comment [Automated messa ge] The system which generated this result transmitted reference range: 10*3/?L. The reference range was not used to interpret this result as normal/abnormal. GRAN MAT (NEUT) % (test code = 770-8) 70.5 % IMM GRAN % (test code = 8881017438) 0.80 % LYMPH % (test code = 736-9) 21.7 % MONO % (test code = 5905-5) 6.4 % EOS % (test code = 713-8) 0.5 % BASO % (test code = 706-2) 0.1 % GRAN MAT x10^3(ANC) (test code = 5390226164) 7.54 10*3/uL 1.88-7.09 H IMM GRAN x10^3 (test code = 9378891363) 0.09 10*3/uL 0.00-0.06 H LYMPH x10^3 (test code = 731-0) 2.32 10*3/uL 1.32-3.29 MONO x10^3 (test code = 742-7) 0.69 10*3/uL 0.33-0.92 EOS x10^3 (test code = 711-2) 0.05 10*3/uL 0.03-0.39 BASO x10^3 (test code = 704-7) 0.01-0.07 Lab Interpretation (test code = 89642-8) Abnormal [facility] BrenhamLamaic Acid Whole Qbsdn6976-77-83 10:06:23* Test Item Value Reference Range Interpretation Comme [facility] LACTIC ACID (test code = 6780884300) 2.41 mmol/L 0.50-2.20 H Lab Interpretation (test cod e = 27561-8) Abnormal [facility] GLUCOSE (AUTOMATED)2023-11-26 02:14:06* Test Item Value Reference Range Interpretation Comme [facility] POCT GLU (test code = 5150494266) 288 mg/dL 70-110 H Lab Interpretation (test cod e = 85883-5) [facility] Qqpmt6014-00-30 00:56:52* Test Item Value Reference Range Interpretation Comme nts LACTIC ACID (test code = 7012975267) 2.93 mmol/L 0.50-2.20 H Lab Interpretation (test cod e = 06398-0) [facility]normal [facility]hamElectroencephalogram (EEG) - Duration of test: Continuous EEG Monitoring (LTM); Release to patient:Drvjozxao9697-62-28 00:00:00 * Test Item Value Reference Range Interpretation Comme nts LYNDSAY (test code = LYNDSAY) LONG-TERM EEG MONITORING #1: 11/26/2023, 15:40 - 16: 31 Name: Heather TurnerN: [id number] Age:53 year oldSex: female History from chart review: This is a 53 year old female with a PMH significant for HFrEF (~35% 05/2023), HTN, Smoker, COPD (on intermittent home O2), chronic low back pain, seizure disorder, C3-C4 ACDF and L3-L4 laminectomies (06/01/23) c/b chronic low back pain 2/2 lumbar spinal stenosis, and depression presenting from [facility] ED due to SOB. Level of Consciousness: ?Awake and Drowsy Reason for EEG: History of seizures Current Antiseizure Medications: ? ?divalproex ER (DEPAKOTE ER) 24 hr tablet 1,250 mg, 1,250 mg, Oral, Q12H TECHNICAL INFORMATION: ?The [place] electroencephalogram was simultaneously recorded with the video. [...] segment. Laura Ramirez MD, PhD, FAESData: 11/26/2023 HAT BLOCKER EEG MONITORING SEGMENT #2: 11/26/23, 16:31:09-19:29:41 In [...] Interpreted by Dewey Neal MD on 11/26/23 -----HAT BLOCKER EEG MONITORING SEGMENT #3: 11/26/23, 19:29:41 to [...] on 11/27/23 Lab Interpretation (test code = 65180-6) Abnormal [facility]. Metabolic Panel (03456)2023-11-25 21:24:39* Test Item Value Reference Range Interpretation Comme nts NA (test code = 0746821642) 134 mmol/L 135-145 L K (test code = 2726796456) 4.3 mmol/L 3.5-5.0 CL (test code = 4982721254) 89 mmol/L 98-108 L CO2 TOTAL (test code = 7891192884) 37 mmol/L 23-31 H AGAP (test code = 1486499268) 8 2-16 BUN (test code = 6050075872) 24 mg/dL 7-23 H GLUCOSE (test code = 9311908650) 177 mg/dL 70-110 H CREATININE (test code = 2160-0) 0.69 mg/dL 0.50-1.04 TOTAL BILI (test code = 8457147978) 0.9 mg/dL 0.1-1.1 CALCIUM (test code = 5667302272) 8.6 mg/dL 8.6-10.6 T PROTEIN (test code = 4055489686) 7.3 g/dL 6.3-8.2 ALBUMIN (test code = 2108971947) 4.1 g/dL 3.5-5.0 ALK PHOS (test code = 2984590210) 263 U/L 34-122 H ALTv (test code = 1742-6) 116 U/L 5-35 H AST(SGOT) (test code = 8914401548) 36 U/L 13-40 eGFR (test code = 36148-0) 105.2 mL/min/1.73m2 CKD-EPI eGFR (2020). Assuming creatinine has been stable day-to-day for at least three months, the eGFR indicates Category G1 (>= 90 mL/min/1.73 m2) Lab Interpretation (test code = 60878-6) [facility]normal [facility]hamMagnesium2024-05-08 21:24:39* Test Item Value Reference Range Interpretation Comme nts MAGNESIUM (test code = 1988467457) 2.1 mg/dL 1.7-2.4 Lab Interpretation (test cod e = 54950-4) Normal [facility] BrenhamLactic Acid Whole Uosrz2505-41-72 21:10:26* Test Item Value Reference Range Interpretation Comme nts LACTIC ACID (test code = 5047468971) 4.07 mmol/L 0.50-2.20 H Lab Interpretation (test cod e = 94020-9) Abnormal [facility] GLUCOSE (AUTOMATED)2023-11-25 21:01:04* Test Item Value Reference Range Interpretation Comme nts POCT GLU (test code = 9812970674) 173 mg/dL 70-110 H Lab Interpretation (test cod e = 84020-5) Abnormal [facility] GLUCOSE (AUTOMATED)2023-11-25 16:59:00* Test Item Value Reference Range Interpretation Comme nts POCT GLU (test code = 9509287009) 220 mg/dL 70-110 H Lab Interpretation (test cod e = 44225-4) Abnormal [facility] GLUCOSE (AUTOMATED)2023-11-25 13:06:20* Test Item Value Reference Range Interpretation Comme nts POCT GLU (test code = 6936125478) 92 mg/dL 70-110 Lab Interpretation (test cod e = 31404-1) [facility] Zbjgs7014-13-67 09:28:51* Test Item Value Reference Range Interpretation Comme nts LACTIC ACID (test code = 1241423748) 1.66 mmol/L 0.50-2.20 Lab Interpretation (test cod e = 68899-2) [facility] Ngxpk3904-37-66 04:58:57* Test Item Value Reference Range Interpretation Comme nts LACTIC ACID (test code = 7221874715) 2.00 mmol/L 0.50-2.20 Lab Interpretation (test cod e = 06518-2) Normal [facility] GLUCOSE (AUTOMATED)2023-11-25 03:05:13* Test Item Value Reference Range Interpretation Comme [facility] POCT GLU (test code = 0033860080) 189 mg/dL 70-110 H Lab Interpretation (test cod e = 11107-7) [facility]normal [facility]hamCT ABDOMEN PELVIS W GZAMFSAU8326-11-32 00:18:09CT ABDOMEN PELVIS W CONTRAST 11/24/2023 5:07 [...] edema.[facility] BrenhamLactic Acid Whole Oyijs6462-98-69 21:31:49* Test Item Value Reference Range Interpretation Comme [facility] LACTIC ACID (test code = 5384981749) 4.54 mmol/L 0.50-2.20 H Lab Interpretation (test cod e = 78206-8) Abnormal [facility] GLUCOSE (AUTOMATED)2023-11-24 21:31:39* Test Item Value Reference Range Interpretation Comme nts POCT GLU (test code = 2028404467) 198 mg/dL 70-110 H Lab Interpretation (test cod e = 87464-2) Abnormal [facility] GLUCOSE (AUTOMATED)2023-11-24 17:53:57* Test Item Value Reference Range Interpretation Comme nts POCT GLU (test code = 4100658343) 226 mg/dL 70-110 H Lab Interpretation (test cod e = 52200-0) Abnormal [facility] GLUCOSE (AUTOMATED)2023-11-24 17:53:57* Test Item Value Reference Range Interpretation Comme nts POCT GLU (test code = 2546487982) 226 mg/dL 70-110 H Lab Interpretation (test cod e = 05922-4) Abnormal [facility] GLUCOSE (AUTOMATED)2023-11-24 17:53:57* Test Item Value Reference Range Interpretation Comme nts POCT GLU (test code = 1379399354) 226 mg/dL 70-110 H Lab Interpretation (test cod e = 25928-9) [facility]normal [facility]hamLactic Acid Whole Awbyf3544-55-57 15:48:27* Test Item Value Reference Range Interpretation Comme nts LACTIC ACID (test code = 6673889926) 4.43 mmol/L 0.50-2.20 H Lab Interpretation (test cod e = 88570-7) [facility]normal [facility]hamLactic Acid Whole Anbku8887-80-12 15:48:27* Test Item Value Reference Range Interpretation Comme nts LACTIC ACID (test code = 0313338001) 4.43 mmol/L 0.50-2.20 H Lab Interpretation (test cod e = 00261-1) Abnormal [facility]hamLactic Acid Whole Ivzug4559-76-76 15:48:27* Test Item Value Reference Range Interpretation Comme nts LACTIC ACID (test code = 1850805608) 4.43 mmol/L 0.50-2.20 H Lab Interpretation (test cod e = 43710-0) [facility]hamCardiovascular Dkzogebegfhfeff5014-76-03 14:28:29? ?RHC/Coronary Angiography Date of Service: 11/23/2023 ?3:18 PM Indication/Diagnosis: heart failure Consent source: self Consent type: indications/complications discussed with patient/legal guardian; written consent obtained Time out completed: yes Aseptic technique: Chlorprep Local Anesthesia: 1% lidocaine without epinephrine Sedation: fentanyl 50 mcg, Versed 2 mg Access site: right radial artery, RIJ Ulmer 4.0 5fr8 Fr IJ sheathSwan Rosalba ? [...] sided failure. Nataliia Ivy professor.Division of cardiovascular medicineUTKnapp [facility] Center [facility] ([facility]OMATED)2023-11-24 12:34:31* Test Item Value Reference Range Interpretation Comme nts POCT GLU (test code = 8125446974) 114 mg/dL 70-110 H Lab Interpretation (test cod e = 48666-7) Abnormal [facility] GLUCOSE (AUTOMATED)2023-11-24 12:34:31* Test Item Value Reference Range Interpretation Comme nts POCT GLU (test code = 3905504325) 114 mg/dL 70-110 H Lab Interpretation (test cod e = 69521-4) Abnormal [facility] GLUCOSE (AUTOMATED)2023-11-24 12:34:31* Test Item Value Reference Range Interpretation Comme nts POCT GLU (test code = 8515734729) 114 mg/dL 70-110 H Lab Interpretation (test cod e = 54412-9) [facility]:10:57* Test Item Value Reference Range Interpretation Comme nts MAGNESIUM (test code = 7752990379) 2.2 mg/dL 1.7-2.4 Lab Interpretation (test cod e = 03155-1) Normal [facility]. Metabolic Panel ([id number])2023-11-24 11:10:57* Test Item Value Reference Range Interpretation Comme nts NA (test code = 9626278524) 141 mmol/L 135-145 K (test code = 8093230520) 4.1 mmol/L 3.5-5.0 CL (test code = 7201598693) 97 mmol/L 98-108 L CO2 TOTAL (test code = 3072253171) 36 mmol/L 23-31 H AGAP (test code = 0896640782) 8 2-16 BUN (test code = 5992400806) 20 mg/dL 7-23 GLUCOSE (test code = 7135360183) 125 mg/dL 70-110 H CREATININE (test code = 2160-0) 0.66 mg/dL 0.50-1.04 TOTAL BILI (test code = 3401458193) 0.7 mg/dL 0.1-1.1 CALCIUM (test code = 2930889580) 8.4 mg/dL 8.6-10.6 L T PROTEIN (test code = 4900709635) 6.5 g/dL 6.3-8.2 ALBUMIN (test code = 9979247401) 3.7 g/dL 3.5-5.0 ALK PHOS (test code = 5309031967) 266 U/L 34-122 H ALTv (test code = 1742-6) 149 U/L 5-35 H AST(SGOT) (test code = 7876594660) 35 U/L 13-40 eGFR (test code = 78257-5) 106.4 mL/min/1.73m2 CKD-EPI eGFR (2020). Assuming creatinine has been stable day-to-day for at least three months, the eGFR indicates Category G1 (>= 90 mL/min/1.73 m2) Lab Interpretation (test code = 52779-8) [facility] 11:10:57* Test Item Value Reference Range Interpretation Comme nts MAGNESIUM (test code = 6717728795) 2.2 mg/dL 1.7-2.4 Lab Interpretation (test cod e = 25044-4) [facility] Met[facility] (98257)2023-11-24 11:10:57* Test Item Value Reference Range Interpretation Comme nts NA (test code = 4537515583) 141 mmol/L 135-145 K (test code = 9304448547) 4.1 mmol/L 3.5-5.0 CL (test code = 7377808179) 97 mmol/L 98-108 L CO2 TOTAL (test code = 4844543395) 36 mmol/L 23-31 H AGAP (test code = 3476158274) 8 2-16 BUN (test code = 1732938920) 20 mg/dL 7-23 GLUCOSE (test code = 0606924884) 125 mg/dL 70-110 H CREATININE (test code = 2160-0) 0.66 mg/dL 0.50-1.04 TOTAL BILI (test code = 9244858587) 0.7 mg/dL 0.1-1.1 CALCIUM (test code = 9671951430) 8.4 mg/dL 8.6-10.6 L T PROTEIN (test code = 5455430571) 6.5 g/dL 6.3-8.2 ALBUMIN (test code = 3787856723) 3.7 g/dL 3.5-5.0 ALK PHOS (test code = 8408375613) 266 U/L 34-122 H ALTv (test code = 1742-6) 149 U/L 5-35 H AST(SGOT) (test code = 7620071613) 35 U/L 13-40 eGFR (test code = 14179-2) 106.4 mL/min/1.73m2 CKD-EPI eGFR (2020). Assuming creatinine has been stable day-to-day for at least three months, the eGFR indicates Category G1 (>= 90 mL/min/1.73 m2) Lab Interpretation (test code = 92002-7) [facility] 11:10:57* Test Item Value Reference Range Interpretation Comme nts MAGNESIUM (test code = 6862314547) 2.2 mg/dL 1.7-2.4 Lab Interpretation (test cod e = 91569-2) Normal [facility]. Metabolic Panel (76598)2023-11-24 11:10:57* Test Item Value Reference Range Interpretation Comme nts NA (test code = 2845415071) 141 mmol/L 135-145 K (test code = 2227439168) 4.1 mmol/L 3.5-5.0 CL (test code = 1126127876) 97 mmol/L 98-108 L CO2 TOTAL (test code = 9336688840) 36 mmol/L 23-31 H AGAP (test code = 4491099106) 8 2-16 BUN (test code = 5571836679) 20 mg/dL 7-23 GLUCOSE (test code = 0394337214) 125 mg/dL 70-110 H CREATININE (test code = 2160-0) 0.66 mg/dL 0.50-1.04 TOTAL BILI (test code = 4556170806) 0.7 mg/dL 0.1-1.1 CALCIUM (test code = 0571285193) 8.4 mg/dL 8.6-10.6 L T PROTEIN (test code = 3967552080) 6.5 g/dL 6.3-8.2 ALBUMIN (test code = 1550015665) 3.7 g/dL 3.5-5.0 ALK PHOS (test code = 1604151184) 266 U/L 34-122 H ALTv (test code = 1742-6) 149 U/L 5-35 H AST(SGOT) (test code = 3141178181) 35 U/L 13-40 eGFR (test code = 06780-0) 106.4 mL/min/1.73m2 CKD-EPI eGFR (2020). Assuming creatinine has been stable day-to-day for at least three months, the eGFR indicates Category G1 (>= 90 mL/min/1.73 m2) Lab Interpretation (test code = 17760-2) [facility] Wurmep6458-38-30 11:07:59* Test Item Value Reference Range Interpretation Comme nts LACTIC ACID (test code = 8957182721) 3.41 mmol/L 0.50-2.20 H Lab Interpretation (test cod e = 06215-2) [facility] 3 Hour Qiqzqy3416-14-89 11:07:59* Test Item Value Reference Range Interpretation Comme nts LACTIC ACID (test code = 3790119302) 3.41 mmol/L 0.50-2.20 H Lab Interpretation (test cod e = 27755-7) [facility]normal [facility] with 3 Hour Nmociu3872-27-78 11:07:59* Test Item Value Reference Range Interpretation Comme nts LACTIC ACID (test code = 7040348091) 3.41 mmol/L 0.50-2.20 H Lab Interpretation (test cod e = 92585-6) Abnormal [facility] with Yduu9997-15-57 10:28:34* Test Item Value Reference Range Interpretation [...] g/dL 31.6-35.1 L RDW-SD (test code = 45540-7) 67.5 fL 39.0-49.9 H RDW-CV (test code = 788-0) 22.5 % 12.0-15.5 H PLT (test code = 777-3) 245 166-358 MPV (test code = 51872-0) 9.5 fL 9.5-12.9 NRBC/100 WBC (test code = 1325892197) 1.2 0.0-10.0 NRBC x10^3 (test code = 0945213996) 0.11 See_Comment [Automated messa ge] The system which generated this result transmitted reference range: 10*3/?L. The reference range was not used to interpret this result as normal/abnormal. GRAN MAT (NEUT) % (test code = 770-8) 84.8 % IMM GRAN % (test code = 5042219135) 0.80 % LYMPH % (test code = 736-9) 7.3 % MONO % (test code = 5905-5) 7.0 % EOS % (test code = 713-8) 0.0 % BASO % (test code = 706-2) 0.1 % GRAN MAT x10^3(ANC) (test code = 4408924850) 8.03 10*3/uL 1.88-7.09 H IMM GRAN x10^3 (test code = 4235427432) 0.08 10*3/uL 0.00-0.06 H LYMPH x10^3 (test code = 731-0) 0.69 10*3/uL 1.32-3.29 L MONO x10^3 (test code = 742-7) 0.66 10*3/uL 0.33-0.92 EOS x10^3 (test code = 711-2) 0.03-0.39 L BASO x10^3 (test code = 704-7) 0.01-0.07 Lab Interpretation (test code = 85222-8) Abnormal [facility] with Cxrr1932-08-60 10:28:34* Test Item Value Reference Range Interpretation [...] g/dL 31.6-35.1 L RDW-SD (test code = 60872-8) 67.5 fL 39.0-49.9 H RDW-CV (test code = 788-0) 22.5 % 12.0-15.5 H PLT (test code = 777-3) 245 166-358 MPV (test code = 79757-5) 9.5 fL 9.5-12.9 NRBC/100 WBC (test code = 8724224406) 1.2 0.0-10.0 NRBC x10^3 (test code = 3983942852) 0.11 See_Comment [Automated messa ge] The system which generated this result transmitted reference range: 10*3/?L. The reference range was not used to interpret this result as normal/abnormal. GRAN MAT (NEUT) % (test code = 770-8) 84.8 % IMM GRAN % (test code = 7899708304) 0.80 % LYMPH % (test code = 736-9) 7.3 % MONO % (test code = 5905-5) 7.0 % EOS % (test code = 713-8) 0.0 % BASO % (test code = 706-2) 0.1 % GRAN MAT x10^3(ANC) (test code = 7013975357) 8.03 10*3/uL 1.88-7.09 H IMM GRAN x10^3 (test code = 8112490411) 0.08 10*3/uL 0.00-0.06 H LYMPH x10^3 (test code = 731-0) 0.69 10*3/uL 1.32-3.29 L MONO x10^3 (test code = 742-7) 0.66 10*3/uL 0.33-0.92 EOS x10^3 (test code = 711-2) 0.03-0.39 L BASO x10^3 (test code = 704-7) 0.01-0.07 Lab Interpretation (test code = 17392-3) Abnormal [facility] with Arbj9610-77-55 10:28:34* Test Item Value Reference Range Interpretation [...] g/dL 31.6-35.1 L RDW-SD (test code = 45288-9) 67.5 fL 39.0-49.9 H RDW-CV (test code = 788-0) 22.5 % 12.0-15.5 H PLT (test code = 777-3) 245 166-358 MPV (test code = 65409-7) 9.5 fL 9.5-12.9 NRBC/100 WBC (test code = 0655330494) 1.2 0.0-10.0 NRBC x10^3 (test code = 4319622215) 0.11 See_Comment [Automated messa ge] The system which generated this result transmitted reference range: 10*3/?L. The reference range was not used to interpret this result as normal/abnormal. GRAN MAT (NEUT) % (test code = 770-8) 84.8 % IMM GRAN % (test code = 2041966855) 0.80 % LYMPH % (test code = 736-9) 7.3 % MONO % (test code = 5905-5) 7.0 % EOS % (test code = 713-8) 0.0 % BASO % (test code = 706-2) 0.1 % GRAN MAT x10^3(ANC) (test code = 8733087423) 8.03 10*3/uL 1.88-7.09 H IMM GRAN x10^3 (test code = 3458329507) 0.08 10*3/uL 0.00-0.06 H LYMPH x10^3 (test code = 731-0) 0.69 10*3/uL 1.32-3.29 L MONO x10^3 (test code = 742-7) 0.66 10*3/uL 0.33-0.92 EOS x10^3 (test code = 711-2) 0.03-0.39 L BASO x10^3 (test code = 704-7) 0.01-0.07 Lab Interpretation (test code = 94344-4) [facility] 06:40:52* Test Item Value Reference Range Interpretation Comme nts APTT Patient (test code = 3173-2) 26 26-36 Lab Interpretation (test cod e = 83523-5) Normal [facility] (for use with Heparin Infusion)2023-11-24 06:40:52* Test Item Value Reference Range Interpretation Comme nts APTT Patient (test code = 3173-2) 36 Lab Interpretation (test cod e = 51163-9) [facility] with [facility] Infusion[facility]2023-11-24 06:40:52* Test Item Value Reference Range Interpretation Comme nts APTT Patient (test code = 3173-2) 36 Lab Interpretation (test cod e = 58996-9) Normal [facility] GLUCOSE (AUTOMATED)2023-11-24 03:18:58* Test Item Value Reference Range Interpretation Comme nts POCT GLU (test code = 1320169267) 263 mg/dL 70-110 H Lab Interpretation (test cod e = 27608-0) Abnormal [facility] GLUCOSE (AUTOMATED)2023-11-24 03:18:58* Test Item Value Reference Range Interpretation Comme nts POCT GLU (test code = 2792896495) 263 mg/dL 70-110 H Lab Interpretation (test cod e = 92708-3) Abnormal [facility] GLUCOSE (AUTOMATED)2023-11-24 03:18:58* Test Item Value Reference Range Interpretation Comme nts POCT GLU (test code = 1759468520) 263 mg/dL 70-110 H Lab Interpretation (test cod e = 31256-7) Abnormal [facility] GLUCOSE (AUTOMATED)2023-11-23 21:29:57* Test Item Value Reference Range Interpretation Comme nts POCT GLU (test code = 8727355797) 137 mg/dL 70-110 H Lab Interpretation (test cod e = 80766-4) Abnormal [facility] GLUCOSE (AUTOMATED)2023-11-23 21:29:57* Test Item Value Reference Range Interpretation Comme nts POCT GLU (test code = 5551505076) 137 mg/dL 70-110 H Lab Interpretation (test cod e = 16649-7) Abnormal [facility] GLUCOSE (AUTOMATED)2023-11-23 21:29:57* Test Item Value Reference Range Interpretation Comme nts POCT GLU (test code = 9201839726) 137 mg/dL 70-110 H Lab Interpretation (test cod e = 78138-5) [facility] (61533) (ALB,T.PRO,BILI T,BU/BC,ALT,AST,ALK PHOS)2023-11-23 17:45:02* Test Item Value Reference Range Interpretation Comme nts TOTAL BILI (test code = 6630573333) 0.7 mg/dL 0.1-1.1 BILI UNCON (test code = 6863620284) 0.1 mg/dL 0.1-1.1 BILI CONJ (test code = 2655299258) 0.0 mg/dL 0.0-0.3 T PROTEIN (test code = 4941527275) 6.2 g/dL 6.3-8.2 L ALBUMIN (test code = 5781420104) 3.5 g/dL 3.5-5.0 ALK PHOS (test code = 7847137000) 274 U/L 34-122 H ALTv (test code = 1742-6) 176 U/L 5-35 H AST(SGOT) (test code = 2412368949) 40 U/L 13-40 Lab Interpretation (test cod e = 06236-7) [facility] (59473) (ALB,T.PRO,BILI T,BU/BC,ALT,AST,ALK PHOS)2023-11-23 17:45:02* Test Item Value Reference Range Interpretation Comme nts TOTAL BILI (test code = 6656969324) 0.7 mg/dL 0.1-1.1 BILI UNCON (test code = 9364217638) 0.1 mg/dL 0.1-1.1 BILI CONJ (test code = 3383025154) 0.0 mg/dL 0.0-0.3 T PROTEIN (test code = 5737603089) 6.2 g/dL 6.3-8.2 L ALBUMIN (test code = 1735401783) 3.5 g/dL 3.5-5.0 ALK PHOS (test code = 8885973414) 274 U/L 34-122 H ALTv (test code = 1742-6) 176 U/L 5-35 H AST(SGOT) (test code = 1956510938) 40 U/L 13-40 Lab Interpretation (test cod e = 69562-4) [facility] (35695) (ALB,T.PRO,BILI T,BU/BC,ALT,AST,ALK PHOS)2023-11-23 17:45:02* Test Item Value Reference Range Interpretation Comme nts TOTAL BILI (test code = 3235730213) 0.7 mg/dL 0.1-1.1 BILI UNCON (test code = 1022785133) 0.1 mg/dL 0.1-1.1 BILI CONJ (test code = 4317382974) 0.0 mg/dL 0.0-0.3 T PROTEIN (test code = 3033814016) 6.2 g/dL 6.3-8.2 L ALBUMIN (test code = 5657021339) 3.5 g/dL 3.5-5.0 ALK PHOS (test code = 5605979908) 274 U/L 34-122 H ALTv (test code = 1742-6) 176 U/L 5-35 H AST(SGOT) (test code = 1636261158) 40 U/L 13-40 Lab Interpretation (test cod e = 17417-1) Abnormal [facility] GLUCOSE (AUTOMATED)2023-11-23 17:19:25* Test Item Value Reference Range Interpretation Comme nts POCT GLU (test code = 9499843882) 137 mg/dL 70-110 H Lab Interpretation (test cod e = 58887-5) Abnormal [facility] GLUCOSE (AUTOMATED)2023-11-23 17:19:25* Test Item Value Reference Range Interpretation Comme nts POCT GLU (test code = 7383775121) 137 mg/dL 70-110 H Lab Interpretation (test cod e = 17768-6) Abnormal [facility] GLUCOSE (AUTOMATED)2023-11-23 17:19:25* Test Item Value Reference Range Interpretation Comme nts POCT GLU (test code = 7794121011) 137 mg/dL 70-110 H Lab Interpretation (test cod e = 22982-3) Abnormal [facility] GLUCOSE (AUTOMATED)2023-11-23 16:51:25* Test Item Value Reference Range Interpretation Comme nts POCT GLU (test code = 4890607179) 145 mg/dL 70-110 H Lab Interpretation (test cod e = 15384-0) Abnormal [facility] GLUCOSE (AUTOMATED)2023-11-23 16:51:25* Test Item Value Reference Range Interpretation Comme nts POCT GLU (test code = 6814039535) 145 mg/dL 70-110 H Lab Interpretation (test cod e = 41300-8) Abnormal [facility] GLUCOSE (AUTOMATED)2023-11-23 16:51:25* Test Item Value Reference Range Interpretation Comme nts POCT GLU (test code = 5487504900) 145 mg/dL 70-110 H Lab Interpretation (test cod e = 78542-9) [facility] use with [facility]arin Infusion[facility]2023-11-23 15:36:08* Test Item Value Reference Range Interpretation Comme nts APTT Patient (test code = 3173-2) 44 26-36 H Lab Interpretation (test cod e = 70244-2) [facility]for use with Heparin Infusion[facility]2023-11-23 15:36:08* Test Item Value Reference Range Interpretation Comme nts APTT Patient (test code = 3173-2) 44 26-36 H Lab Interpretation (test cod e = 61278-9) Abnormal [facility]ella[facility] (for use with Heparin Infusion)2023-11-23 15:36:08* Test Item Value Reference Range Interpretation Comme nts APTT Patient (test code = 3173-2) 44 26-36 H Lab Interpretation (test cod e = 51744-0) [facility]normal [facility] Whole Gizkd4913-44-54 15:21:35* Test Item Value Reference Range Interpretation Comme nts LACTIC ACID (test code = 3067788338) 4.80 mmol/L 0.50-2.20 H Lab Interpretation (test cod e = 78337-0) [facility]normal [facility] Whole Slzir7577-91-13 15:21:35* Test Item Value Reference Range Interpretation Comme nts LACTIC ACID (test code = 5299330694) 4.80 mmol/L 0.50-2.20 H Lab Interpretation (test cod e = 92864-9) [facility]normal [facility] Whole Zaoqx1307-71-66 15:21:35* Test Item Value Reference Range Interpretation Comme nts LACTIC ACID (test code = 1781726747) 4.80 mmol/L 0.50-2.20 H Lab Interpretation (test cod e = 48042-8) Abnormal [facility] GLUCOSE (AUTOMATED)2023-11-23 12:49:15* Test Item Value Reference Range Interpretation Comme nts POCT GLU (test code = 5734434013) 162 mg/dL 70-110 H Lab Interpretation (test cod e = 43361-9) Abnormal [facility] GLUCOSE (AUTOMATED)2023-11-23 12:49:15* Test Item Value Reference Range Interpretation Comme nts POCT GLU (test code = 7795895736) 162 mg/dL 70-110 H Lab Interpretation (test cod e = 60022-8) Abnormal [facility] GLUCOSE (AUTOMATED)2023-11-23 12:49:15* Test Item Value Reference Range Interpretation Comme nts POCT GLU (test code = 3382741797) 162 mg/dL 70-110 H Lab Interpretation (test cod e = 21106-6) [facility] 08:44:42* Test Item Value Reference Range Interpretation Comme nts MAGNESIUM (test code = 9880462663) 1.9 mg/dL 1.7-2.4 Lab Interpretation (test cod e = 46910-5) Normal [facility] Metabolic Panel (NA, K, CL, CO2, GLUCOSE, BUN, CREATININE, CA)2023-11-23 08:44:42* Test Item Value Reference Range Interpretation Comme nts NA (test code = 1780912051) 136 mmol/L 135-145 K (test code = 2831902183) 3.7 mmol/L 3.5-5.0 CL (test code = 2113265687) 99 mmol/L 98-108 CO2 TOTAL (test code = 5684947027) 31 mmol/L 23-31 AGAP (test code = 1125370483) 6 2-16 BUN (test code = 3980946116) 20 mg/dL 7-23 GLUCOSE (test code = 0124799122) 184 mg/dL 70-110 H CREATININE (test code = 2160-0) 0.66 mg/dL 0.50-1.04 CALCIUM (test code = 8842089711) 7.9 mg/dL 8.6-10.6 L eGFR (test code = 32647-4) 106.4 mL/min/1.73m2 CKD-EPI eGFR (2020). Assuming creatinine has been stable day-to-day for at least three months, the eGFR indicates Category G1 (>= 90 mL/min/1.73 m2) Lab Interpretation (test code = 96324-4) [facility]* Test Item Value Reference Range Interpretation Comme nts MAGNESIUM (test code = 9308933682) 1.9 mg/dL 1.7-2.4 Lab Interpretation (test cod e = 00627-6) Normal [facility] Metabolic Panel (NA, K, CL, CO2, GLUCOSE, BUN, CREATININE, CA)2023-11-23 08:44:42* Test Item Value Reference Range Interpretation Comme nts NA (test code = 8631914269) 136 mmol/L 135-145 K (test code = 5429068255) 3.7 mmol/L 3.5-5.0 CL (test code = 7636622999) 99 mmol/L 98-108 CO2 TOTAL (test code = 1380256248) 31 mmol/L 23-31 AGAP (test code = 8358867046) 6 2-16 BUN (test code = 8239721646) 20 mg/dL 7-23 GLUCOSE (test code = 0867824254) 184 mg/dL 70-110 H CREATININE (test code = 2160-0) 0.66 mg/dL 0.50-1.04 CALCIUM (test code = 3353253459) 7.9 mg/dL 8.6-10.6 L eGFR (test code = 48754-9) 106.4 mL/min/1.73m2 CKD-EPI eGFR (2020). Assuming creatinine has been stable day-to-day for at least three months, the eGFR indicates Category G1 (>= 90 mL/min/1.73 m2) Lab Interpretation (test code = 67001-2) Abnormal [facility]2024-05-06 08:44:42* Test Item Value Reference Range Interpretation Comme nts MAGNESIUM (test code = 8410031962) 1.9 mg/dL 1.7-2.4 Lab Interpretation (test cod e = 39878-5) [facility] (NA, K, CL, CO2, GLUCOSE, BUN, CREATININE, CA)2023-11-23 08:44:42* Test Item Value Reference Range Interpretation Comme [facility] NA (test code = 3384444562) 136 mmol/L 135-145 K (test code = 6287939848) 3.7 mmol/L 3.5-5.0 CL (test code = 4514009684) 99 mmol/L 98-108 CO2 TOTAL (test code = 3305887269) 31 mmol/L 23-31 AGAP (test code = 9456554157) 6 2-16 BUN (test code = 2163987990) 20 mg/dL 7-23 GLUCOSE (test code = 7551464862) 184 mg/dL 70-110 H CREATININE (test code = 2160-0) 0.66 mg/dL 0.50-1.04 CALCIUM (test code = 9298965159) 7.9 mg/dL 8.6-10.6 L eGFR (test code = 73478-3) 106.4 mL/min/1.73m2 CKD-EPI eGFR (2020). Assuming creatinine has been stable day-to-day for at least three months, the eGFR indicates Category G1 (>= 90 mL/min/1.73 m2) Lab Interpretation (test code = 80156-8) Abnormal [facility] (for use with Heparin Infusion)2023-11-23 08:29:39* Test Item Value Reference Range Interpretation Comme [facility] APTT Patient (test code = 3173-2) 49 26-36 H Lab Interpretation (test cod e = 11172-9) [facility] Infusion[facility]2023-11-23 08:29:39* Test Item Value Reference Range Interpretation Comme [facility] APTT Patient (test code = 3173-2) 49 26-36 H Lab Interpretation (test cod e = 58980-0) Abnormal [facility] (for use with Heparin Infusion)2023-11-23 08:29:39* Test Item Value Reference Range Interpretation Comme [facility] APTT Patient (test code = 3173-2) 49 26-36 H Lab Interpretation (test cod e = 19545-0) Abnormal [facility] with Hdll8865-28-99 08:24:03* Test Item Value Reference Range Interpretation [...] g/dL 31.6-35.1 L RDW-SD (test code = 61076-5) 66.0 fL 39.0-49.9 H RDW-CV (test code = 788-0) 22.5 % 12.0-15.5 H PLT (test code = 777-3) 204 166-358 MPV (test code = 71086-5) 9.8 fL 9.5-12.9 NRBC/100 WBC (test code = 3456304923) 2.4 0.0-10.0 NRBC x10^3 (test code = 8850505822) 0.17 See_Comment [Automated messa ge] The system which generated this result transmitted reference range: 10*3/?L. The reference range was not used to interpret this result as normal/abnormal. GRAN MAT (NEUT) % (test code = 770-8) 80.3 % IMM GRAN % (test code = 5876350499) 1.70 % LYMPH % (test code = 736-9) 9.5 % MONO % (test code = 5905-5) 8.5 % EOS % (test code = 713-8) 0.0 % BASO % (test code = 706-2) 0.0 % GRAN MAT x10^3(ANC) (test code = 2394532297) 5.77 10*3/uL 1.88-7.09 IMM GRAN x10^3 (test code = 3335307572) 0.12 10*3/uL 0.00-0.06 H LYMPH x10^3 (test code = 731-0) 0.68 10*3/uL 1.32-3.29 L MONO x10^3 (test code = 742-7) 0.61 10*3/uL 0.33-0.92 EOS x10^3 (test code = 711-2) 0.03-0.39 L BASO x10^3 (test code = 704-7) 0.01-0.07 Lab Interpretation (test code = 01914-6) Abnormal [facility] with Lebz7696-99-77 08:24:03* Test Item Value Reference Range Interpretation [...] g/dL 31.6-35.1 L RDW-SD (test code = 40979-3) 66.0 fL 39.0-49.9 H RDW-CV (test code = 788-0) 22.5 % 12.0-15.5 H PLT (test code = 777-3) 204 166-358 MPV (test code = 24830-6) 9.8 fL 9.5-12.9 NRBC/100 WBC (test code = 1003942605) 2.4 0.0-10.0 NRBC x10^3 (test code = 9063762611) 0.17 See_Comment [Automated messa ge] The system which generated this result transmitted reference range: 10*3/?L. The reference range was not used to interpret this result as normal/abnormal. GRAN MAT (NEUT) % (test code = 770-8) 80.3 % IMM GRAN % (test code = 7273482602) 1.70 % LYMPH % (test code = 736-9) 9.5 % MONO % (test code = 5905-5) 8.5 % EOS % (test code = 713-8) 0.0 % BASO % (test code = 706-2) 0.0 % GRAN MAT x10^3(ANC) (test code = 0303156339) 5.77 10*3/uL 1.88-7.09 IMM GRAN x10^3 (test code = 8316510805) 0.12 10*3/uL 0.00-0.06 H LYMPH x10^3 (test code = 731-0) 0.68 10*3/uL 1.32-3.29 L MONO x10^3 (test code = 742-7) 0.61 10*3/uL 0.33-0.92 EOS x10^3 (test code = 711-2) 0.03-0.39 L BASO x10^3 (test code = 704-7) 0.01-0.07 Lab Interpretation (test code = 62288-4) Abnormal [facility] with [id number] 08:24:03* Test Item Value Reference Range Interpretation [...] g/dL 31.6-35.1 L RDW-SD (test code = 15241-1) 66.0 fL 39.0-49.9 H RDW-CV (test code = 788-0) 22.5 % 12.0-15.5 H PLT (test code = 777-3) 204 166-358 MPV (test code = 31585-9) 9.8 fL 9.5-12.9 NRBC/100 WBC (test code = 0781994934) 2.4 0.0-10.0 NRBC x10^3 (test code = 4813480715) 0.17 See_Comment [Automated messa ge] The system which generated this result transmitted reference range: 10*3/?L. The reference range was not used to interpret this result as normal/abnormal. GRAN MAT (NEUT) % (test code = 770-8) 80.3 % IMM GRAN % (test code = 3984105390) 1.70 % LYMPH % (test code = 736-9) 9.5 % MONO % (test code = 5905-5) 8.5 % EOS % (test code = 713-8) 0.0 % BASO % (test code = 706-2) 0.0 % GRAN MAT x10^3(ANC) (test code = 3094345017) 5.77 10*3/uL 1.88-7.09 IMM GRAN x10^3 (test code = 1629281077) 0.12 10*3/uL 0.00-0.06 H LYMPH x10^3 (test code = 731-0) 0.68 10*3/uL 1.32-3.29 L MONO x10^3 (test code = 742-7) 0.61 10*3/uL 0.33-0.92 EOS x10^3 (test code = 711-2) 0.03-0.39 L BASO x10^3 (test code = 704-7) 0.01-0.07 Lab Interpretation (test code = 26224-1) [facility] [id number] 08:04:10* Test Item Value Reference Range Interpretation Comme nts LACTIC ACID (test code = 2938746344) 4.15 mmol/L 0.50-2.20 H Lab Interpretation (test cod e = 36437-0) [facility] [id number] 08:04:10* Test Item Value Reference Range Interpretation Comme nts LACTIC ACID (test code = 8359610738) 4.15 mmol/L 0.50-2.20 H Lab Interpretation (test cod e = 02146-0) [facility] [id number] 08:04:10* Test Item Value Reference Range Interpretation Comme nts LACTIC ACID (test code = 8055908615) 4.15 mmol/L 0.50-2.20 H Lab Interpretation (test cod e = 72043-2) [facility] [id number] 05:11:29* Test Item Value Reference Range Interpretation Comme nts LACTIC ACID (test code = 7926940480) 4.23 mmol/L 0.50-2.20 H Lab Interpretation (test cod e = 02984-7) [facility] [id number] 05:11:29* Test Item Value Reference Range Interpretation Comme nts LACTIC ACID (test code = 4681207540) 4.23 mmol/L 0.50-2.20 H Lab Interpretation (test cod e = 90061-4) [facility] Sdizl6601-84-12 05:11:29* Test Item Value Reference Range Interpretation Comme nts LACTIC ACID (test code = 4472593907) 4.23 mmol/L 0.50-2.20 H Lab Interpretation (test cod e = 95351-3) [facility] Awiws2836-45-60 03:16:26* Test Item Value Reference Range Interpretation Comme nts LACTIC ACID (test code = 6475626104) 3.66 mmol/L 0.50-2.20 H Lab Interpretation (test cod e = 35758-0) [facility]normal [facility] Tuqsh3280-41-32 03:16:26* Test Item Value Reference Range Interpretation Comme nts LACTIC ACID (test code = 2107063049) 3.66 mmol/L 0.50-2.20 H Lab Interpretation (test cod e = 63971-5) [facility]normal [facility] Whole Prfyk5312-41-44 03:16:26* Test Item Value Reference Range Interpretation Comme nts LACTIC ACID (test code = 3000981305) 3.66 mmol/L 0.50-2.20 H Lab Interpretation (test cod e = 88286-9) [facility]normal [facility] Whole Pxipf5774-40-42 01:21:56* Test Item Value Reference Range Interpretation Comme nts LACTIC ACID (test code = 4277746658) 3.68 mmol/L 0.50-2.20 H Lab Interpretation (test cod e = 46270-9) [facility]normal [facility] Whole Yxwen1976-04-00 01:21:56* Test Item Value Reference Range Interpretation Comme nts LACTIC ACID (test code = 1681517679) 3.68 mmol/L 0.50-2.20 H Lab Interpretation (test cod e = 09458-7) [facility]normal [facility] Whole Deyjl9004-01-02 01:21:56* Test Item Value Reference Range Interpretation Comme nts LACTIC ACID (test code = 0113082429) 3.68 mmol/L 0.50-2.20 H Lab Interpretation (test cod e = 72988-9) Abnormal [facility] GLUCOSE (AUTOMATED)2023-11-23 01:07:13* Test Item Value Reference Range Interpretation Comme nts POCT GLU (test code = 7543779637) 193 mg/dL 70-110 H Lab Interpretation (test cod e = 53424-8) Abnormal [facility] GLUCOSE (AUTOMATED)2023-11-23 01:07:13* Test Item Value Reference Range Interpretation Comme nts POCT GLU (test code = 5085642616) 193 mg/dL 70-110 H Lab Interpretation (test cod e = 04393-4) Abnormal [facility] GLUCOSE (AUTOMATED)2023-11-23 01:07:13* Test Item Value Reference Range Interpretation Comme nts POCT GLU (test code = 2887597984) 193 mg/dL 70-110 H Lab Interpretation (test cod e = 95872-8) [facility] Zghdu4768-07-95 23:56:10* Test Item Value Reference Range Interpretation Comme nts LACTIC ACID (test code = 1208262375) 3.82 mmol/L 0.50-2.20 H Lab Interpretation (test cod e = 06789-4) [facility] Tdlbu9425-75-39 23:56:10* Test Item Value Reference Range Interpretation Comme nts LACTIC ACID (test code = 9838850964) 3.82 mmol/L 0.50-2.20 H Lab Interpretation (test cod e = 10698-9) Abnormal [facility] Whole Ujykc1492-03-46 23:56:10* Test Item Value Reference Range Interpretation Comme nts LACTIC ACID (test code = 8479865727) 3.82 mmol/L 0.50-2.20 H Lab Interpretation (test cod e = 99870-2) Abnormal [facility] GLUCOSE (AUTOMATED)2023-11-22 22:00:27* Test Item Value Reference Range Interpretation Comme nts POCT GLU (test code = 2980014318) 218 mg/dL 70-110 H Lab Interpretation (test cod e = 19680-4) Abnormal [facility] GLUCOSE (AUTOMATED)2023-11-22 22:00:27* Test Item Value Reference Range Interpretation Comme nts POCT GLU (test code = 3898022564) 218 mg/dL 70-110 H Lab Interpretation (test cod e = 75358-8) Abnormal [facility] GLUCOSE (AUTOMATED)2023-11-22 22:00:27* Test Item Value Reference Range Interpretation Comme nts POCT GLU (test code = 1448768175) 218 mg/dL 70-110 H Lab Interpretation (test cod e = 23702-1) [facility] Bparu2854-31-98 21:49:39* Test Item Value Reference Range Interpretation Comme nts LACTIC ACID (test code = 5231211416) 4.40 mmol/L 0.50-2.20 H Lab Interpretation (test cod e = 40757-5) [facility] Iisoo4690-95-44 21:49:39* Test Item Value Reference Range Interpretation Comme nts LACTIC ACID (test code = 7584466535) 4.40 mmol/L 0.50-2.20 H Lab Interpretation (test cod e = 14631-8) Abnormal [facility] Whole Wzvhx8874-30-45 21:49:39* Test Item Value Reference Range Interpretation Comme nts LACTIC ACID (test code = 1721440383) 4.40 mmol/L 0.50-2.20 H Lab Interpretation (test cod e = 55531-9) Abnormal [facility] GLUCOSE (AUTOMATED)2023-11-22 21:02:20* Test Item Value Reference Range Interpretation Comme nts POCT GLU (test code = 9391851059) 208 mg/dL 70-110 H Lab Interpretation (test cod e = 22838-9) Abnormal [facility] GLUCOSE (AUTOMATED)2023-11-22 21:02:20* Test Item Value Reference Range Interpretation Comme nts POCT GLU (test code = 9178969210) 208 mg/dL 70-110 H Lab Interpretation (test cod e = 78267-9) Abnormal [facility] GLUCOSE (AUTOMATED)2023-11-22 21:02:20* Test Item Value Reference Range Interpretation Comme nts POCT GLU (test code = 5374234204) 208 mg/dL 70-110 H Lab Interpretation (test cod e = 41378-6) Abnormal [facility] Whole Cwuuk0505-58-90 20:01:46* Test Item Value Reference Range Interpretation Comme nts LACTIC ACID (test code = 5497095942) 6.14 mmol/L 0.50-2.20 H Lab Interpretation (test cod e = 13298-7) [facility] Unxub6794-96-72 20:01:46* Test Item Value Reference Range Interpretation Comme nts LACTIC ACID (test code = 0279723029) 6.14 mmol/L 0.50-2.20 H Lab Interpretation (test cod e = 01453-1) [facility] Zrvlx5384-51-00 20:01:46* Test Item Value Reference Range Interpretation Comme nts LACTIC ACID (test code = 9734962432) 6.14 mmol/L 0.50-2.20 H Lab Interpretation (test cod e = 05514-4) Abnormal [facility] VMXWOGU7136-73-38 18:29:14 Procedure: ? RIGHT UPPER QUADRANT ULTRASOUND 11/22/2023 1:27 PM Ordering physician: MGEAN RONDON Clinical indication: ?right upper quadrant pain. [...] ascites.[facility] 2023-11-22 18:29:14Procedure: ? RIGHT UPPER [...] ascites.[facility] Transthoracic echo (TTE)2023-11-22 18:16:22* Test Item Value Reference Range Interpretation Comme nts Height (test code = 9095784157) 63 in Weight (test code = 4406332990) 208 lbs Systolic BP (test code = 3421263235) 146 mmHg Diastolic BP (test code = 6218504148) 103 mmHg Heart Rate (test code = 8328016546) 112 bpm BSA (test code = 7719357171) 1.97 m2 LVOT diameter (test code = 0139580160) 2.5 cm LVOT area (test code = 9541405687) 5.00 cm2 LA size (test code = 2584549018) 4.2 cm MV Peak E Evette (test code = 8376667478) 128.5 cm/s MV Peak A Evette (test code = 8027378396) 62.4 cm/s E/A ratio (test code = 9281590321) 2.06 ratio E wave decelartion time (test code = 4492154847) 0.12 s MV Prop V (test code = 5281041048) 38.00 cm/s LAV(MOD-sp4) (test code = 4212044855) 68.70 mL Tapse (test code = 9253019305) 0.7 cm LA Volume Index (BP) (test code = 1019009365) 34.6 mL/m2 LA volume (BP) (test code = 9676986801) 68.0 mL LAV(MOD-sp2) (test code = 7884425072) 66.30 mL Ao peak evette (test code = 1950613928) 124.9 cm/s Ao max PG (test code = 5060547300) 6.20 mm[Hg] AV peak gradient (test code = 2425358242) 6.2 mmHg LVOT stroke volume (test code = 4425686759) 42.40 cm3 LVOT peak evette (test code = 6379370509) 67.8 cm/s LVOT mn grad (test code = 3629325533) 0.9 mmHg AV LVOT peak gradient (test code = 1840983266) 1.84 mmHg LVOT peak VTI (test code = 7096836570) 8.4 cm AV area peak evette (test code = 7082256864) 2.7 cm2 LV V1 mean (test code = 2554932585) 43.20 cm/s TR Peak Evette (test code = 9573702600) 247.7 cm/s Triscuspid Valve Regurgitation Peak Gradient (test code = 3599098960) 24.5 mmHg MR max PG (test code = 6452532104) 85.20 mm[Hg] MR max evette (test code = 2191113531) 461.50 cm/s Mr max evette (test code = 9748087717) 461.5 m/s AV regurgitation pressure 1/2 time (test code = 2044340923) 305.5 ms AI dec slope (test code = 4886734428) 432.10 cm/s2 AI max evette (test code = 6884679577) 450.60 cm/s AI max PG (test code = 8945092531) 81.20 mm[Hg] LVIDD (test code = 4683645908) 5.00 cm Left Ventricular End Diastolic Volume by Teichholz Method (test code = 8496595) 116.6 mL IVS (test code = 6649276410) 0.93 cm Interventricular Septum Diastolic Thickness by 2D (test code = 4274700) 0.93 cm LVPWD (test code = 0901592018) 1.00 cm PW (test code = 6671021435) 1.00 cm 0.6-1.1 EF(Teich) (test code = 9845205843) 33.90 % LVIDS (test code = 6456638379) 4.20 cm Left Ventricular End Systolic Volume by Teichholz Method (test code = 9656675) 77.1 mL FS (test code = 0369868271) 16 % EF - 2D (test code = 22976453) 33.90 % Radiology Study observation (narrative) (test code = 19173-2) LYNDSAY (test code = LYNDSAY) ?Left?Ventricle: Left [...] [facility] (TTE)2023-11-22 18:16:22* Test Item Value Reference Range Interpretation Comme nts Height (test code = 7886992138) 63 in Weight (test code = 8502263975) 208 lbs Systolic BP (test code = 8015805780) 146 mmHg Diastolic BP (test code = 2899661956) 103 mmHg Heart Rate (test code = 8788562318) 112 bpm BSA (test code = 7633930788) 1.97 m2 LVOT diameter (test code = 9934508512) 2.5 cm LVOT area (test code = 2649006853) 5.00 cm2 LA size (test code = 2734005485) 4.2 cm MV Peak E Evette (test code = 4012733942) 128.5 cm/s MV Peak A Evette (test code = 0736163673) 62.4 cm/s E/A ratio (test code = 5090636123) 2.06 ratio E wave decelartion time (test code = 0643887456) 0.12 s MV Prop V (test code = 0955580676) 38.00 cm/s LAV(MOD-sp4) (test code = 7693642857) 68.70 mL Tapse (test code = 1230232282) 0.7 cm LA Volume Index (BP) (test code = 4852887428) 34.6 mL/m2 LA volume (BP) (test code = 1800333852) 68.0 mL LAV(MOD-sp2) (test code = 9677531669) 66.30 mL Ao peak evette (test code = 9269719231) 124.9 cm/s Ao max PG (test code = 3002513604) 6.20 mm[Hg] AV peak gradient (test code = 7994076032) 6.2 mmHg LVOT stroke volume (test code = 3767137160) 42.40 cm3 LVOT peak evette (test code = 5568403501) 67.8 cm/s LVOT mn grad (test code = 4086875349) 0.9 mmHg AV LVOT peak gradient (test code = 7982696501) 1.84 mmHg LVOT peak VTI (test code = 5043384498) 8.4 cm AV area peak evette (test code = 3992212049) 2.7 cm2 LV V1 mean (test code = 8994207504) 43.20 cm/s TR Peak Evette (test code = 6059621969) 247.7 cm/s Triscuspid Valve Regurgitation Peak Gradient (test code = 0407140301) 24.5 mmHg MR max PG (test code = 0820374424) 85.20 mm[Hg] MR max evette (test code = 8058293978) 461.50 cm/s Mr max evette (test code = 6659568632) 461.5 m/s AV regurgitation pressure 1/2 time (test code = 7497067226) 305.5 ms AI dec slope (test code = 2038421333) 432.10 cm/s2 AI max evette (test code = 8731626328) 450.60 cm/s AI max PG (test code = 2738797071) 81.20 mm[Hg] LVIDD (test code = 9193475323) 5.00 cm Left Ventricular End Diastolic Volume by Teichholz Method (test code = 9015103) 116.6 mL IVS (test code = 1556578493) 0.93 cm Interventricular Septum Diastolic Thickness by 2D (test code = 2987737) 0.93 cm LVPWD (test code = 7726972862) 1.00 cm PW (test code = 4223312699) 1.00 cm 0.6-1.1 EF(Teich) (test code = 7543054751) 33.90 % LVIDS (test code = 6405014641) 4.20 cm Left Ventricular End Systolic Volume by Teichholz Method (test code = 4734231) 77.1 mL FS (test code = 6481678349) 16 % EF - 2D (test code = 25496368) 33.90 % Radiology Study observation (narrative) (test code = 54982-7) LYNDSAY (test code = LYNDSAY) ?Left?Ventricle: Left [...] mL of Definity ultrasound enhancing agent used. [facility] Acid Whole Ofwuf8191-48-59 17:29:30* Test Item Value Reference Range Interpretation Comme nts LACTIC ACID (test code = 9188082151) 4.00 mmol/L 0.50-2.20 H QUES Lab Interpretation (test cod e = 15251-8) Abnormal [facility] Acid Whole Atzoj0976-60-68 17:29:30* Test Item Value Reference Range Interpretation Comme nts LACTIC ACID (test code = 3881019808) 4.00 mmol/L 0.50-2.20 H QUES Lab Interpretation (test cod e = 46071-8) Abnormal [facility] Acid Whole Kwjbv9862-11-38 17:29:30* Test Item Value Reference Range Interpretation Comme nts LACTIC ACID (test code = 4610026533) 4.00 mmol/L 0.50-2.20 H QUES Lab Interpretation (test cod e = 80617-5) Abnormal [facility] GLUCOSE (AUTOMATED)2023-11-22 17:01:27* Test Item Value Reference Range Interpretation Comme nts POCT GLU (test code = 4832789085) 152 mg/dL 70-110 H Notified Provide r Lab Interpretation (test code = 86656-9) Abnormal [facility] GLUCOSE (AUTOMATED)2023-11-22 17:01:27* Test Item Value Reference Range Interpretation Comme nts POCT GLU (test code = 8862951352) 152 mg/dL 70-110 H Notified Provide r Lab Interpretation (test code = 10904-4) Abnormal [facility] GLUCOSE (AUTOMATED)2023-11-22 17:01:27* Test Item Value Reference Range Interpretation Comme nts POCT GLU (test code = 7981834001) 152 mg/dL 70-110 H Notified Provide r Lab Interpretation (test code = 95224-1) [facility]normal [facility]Iron Qyfsv2377-17-70 16:28:02* Test Item Value Reference Range Interpretation Comme nts IRON (test code = 2525490691) 44 ug/dL 50-160 L TIBC (test code = 5717274168) 395 ug/dL 250-410 % FE SAT (test code = 9872443405) 11 % 20-50 L Lab Interpretation (test cod e = 94090-0) [facility] Eexwf5955-93-29 16:28:02* Test Item Value Reference Range Interpretation Comme nts IRON (test code = 1868909354) 44 ug/dL 50-160 L TIBC (test code = 0469450092) 395 ug/dL 250-410 % FE SAT (test code = 4939177211) 11 % 20-50 L Lab Interpretation (test cod e = 65782-9) [facility] Ulynk4000-35-50 16:28:02* Test Item Value Reference Range Interpretation Comme nts IRON (test code = 9826612560) 44 ug/dL 50-160 L TIBC (test code = 9065840441) 395 ug/dL 250-410 % FE SAT (test code = 3334375405) 11 % 20-50 L Lab Interpretation (test cod e = 43745-7) Abnormal [facility]. Metabolic Panel (61981)2023-11-22 16:20:58* Test Item Value Reference Range Interpretation Comme nts NA (test code = 7319889307) 135 mmol/L 135-145 K (test code = 0986788957) 4.0 mmol/L 3.5-5.0 Slight hemolysis CL (test code = 4682779716) 108 mmol/L 98-108 CO2 TOTAL (test code = 6110467100) 20 mmol/L 23-31 L AGAP (test code = 1506784876) 7 2-16 BUN (test code = 4131318114) 20 mg/dL 7-23 Slight hemolysis GLUCOSE (test code = 3981568730) 136 mg/dL 70-110 H CREATININE (test code = 2160-0) 0.48 mg/dL 0.50-1.04 L TOTAL BILI (test code = 5068250512) 0.8 mg/dL 0.1-1.1 CALCIUM (test code = 9171242950) 6.7 mg/dL 8.6-10.6 L T PROTEIN (test code = 6859609120) 5.6 g/dL 6.3-8.2 L ALBUMIN (test code = 1938872730) 3.1 g/dL 3.5-5.0 L ALK PHOS (test code = 7150283655) 282 U/L 34-122 H Slight hemolysis ALTv (test code = 1742-6) 196 U/L 5-35 H AST(SGOT) (test code = 8485908654) 56 U/L 13-40 H Slight hemolysis eGFR (test code = 53835-3) 114.8 mL/min/1.73m2 CKD-EPI eGFR (2020). Assuming creatinine has been stable day-to-day for at least three months, the eGFR indicates Category G1 (>= 90 mL/min/1.73 m2) Lab Interpretation (test code = 82697-2) Abnormal [facility]. Metabolic Panel (36898)2023-11-22 16:20:58* Test Item Value Reference Range Interpretation Comme nts NA (test code = 2019965838) 135 mmol/L 135-145 K (test code = 1768935727) 4.0 mmol/L 3.5-5.0 Slight hemolysis CL (test code = 6741536389) 108 mmol/L 98-108 CO2 TOTAL (test code = 4275403951) 20 mmol/L 23-31 L AGAP (test code = 8742026668) 7 2-16 BUN (test code = 2763842064) 20 mg/dL 7-23 Slight hemolysis GLUCOSE (test code = 4041630592) 136 mg/dL 70-110 H CREATININE (test code = 2160-0) 0.48 mg/dL 0.50-1.04 L TOTAL BILI (test code = 5330724080) 0.8 mg/dL 0.1-1.1 CALCIUM (test code = 3412560979) 6.7 mg/dL 8.6-10.6 L T PROTEIN (test code = 7174883919) 5.6 g/dL 6.3-8.2 L ALBUMIN (test code = 5905410854) 3.1 g/dL 3.5-5.0 L ALK PHOS (test code = 8850580165) 282 U/L 34-122 H Slight hemolysis ALTv (test code = 1742-6) 196 U/L 5-35 H AST(SGOT) (test code = 4984692661) 56 U/L 13-40 H Slight hemolysis eGFR (test code = 11545-3) 114.8 mL/min/1.73m2 CKD-EPI eGFR (2020). Assuming creatinine has been stable day-to-day for at least three months, the eGFR indicates Category G1 (>= 90 mL/min/1.73 m2) Lab Interpretation (test code = 89858-7) Abnormal [facility]. Metabolic Panel (08179)2023-11-22 16:20:58* Test Item Value Reference Range Interpretation Comme nts NA (test code = 5640558456) 135 mmol/L 135-145 K (test code = 7549484556) 4.0 mmol/L 3.5-5.0 Slight hemolysis CL (test code = 3043268986) 108 mmol/L 98-108 CO2 TOTAL (test code = 5360097356) 20 mmol/L 23-31 L AGAP (test code = 7370420561) 7 2-16 BUN (test code = 1223928574) 20 mg/dL 7-23 Slight hemolysis GLUCOSE (test code = 4873860823) 136 mg/dL 70-110 H CREATININE (test code = 2160-0) 0.48 mg/dL 0.50-1.04 L TOTAL BILI (test code = 4502964909) 0.8 mg/dL 0.1-1.1 CALCIUM (test code = 7091939269) 6.7 mg/dL 8.6-10.6 L T PROTEIN (test code = 8903745891) 5.6 g/dL 6.3-8.2 L ALBUMIN (test code = 9486897205) 3.1 g/dL 3.5-5.0 L ALK PHOS (test code = 9373287602) 282 U/L 34-122 H Slight hemolysis ALTv (test code = 1742-6) 196 U/L 5-35 H AST(SGOT) (test code = 0473781296) 56 U/L 13-40 H Slight hemolysis eGFR (test code = 88323-8) 114.8 mL/min/1.73m2 CKD-EPI eGFR (2020). Assuming creatinine has been stable day-to-day for at least three months, the eGFR indicates Category G1 (>= 90 mL/min/1.73 m2) Lab Interpretation (test code = 88810-5) [facility]normal [facility] PULMONARY [id number] 15:51:03PROCEDURE: CT ANGIO CHEST WITH CONTRAST - [...] [facility] CHEST PULMONARY PRSLXPJNM6690-71-95 15:51:03PROCEDURE: CT ANGIO CHEST WITH CONTRAST - [...] [facility]hamL[facility] Acid Whole Wbowc7038-74-27 14:33:11* Test Item Value Reference Range Interpretation Comme nts LACTIC ACID (test code = 2428890999) 4.04 mmol/L 0.50-2.20 H QUES Lab Interpretation (test cod e = 57998-8) Abnormal [facility]hamL[facility] Acid Whole Mbmcd9068-91-78 14:33:11* Test Item Value Reference Range Interpretation Comme nts LACTIC ACID (test code = 8032991401) 4.04 mmol/L 0.50-2.20 H QUES Lab Interpretation (test cod e = 44191-0) Abnormal [facility] Whole Jpjjm7951-97-29 14:33:11* Test Item Value Reference Range Interpretation Comme nts LACTIC ACID (test code = 6319454093) 4.04 mmol/L 0.50-2.20 H QUES Lab Interpretation (test cod e = 48578-4) [facility] 13:26:51* Test Item Value Reference Range Interpretation Comme nts POCT GLU (test code = 8408765729) 180 mg/dL 70-110 H Notified Provide r Lab Interpretation (test code = 58114-4) [facility] 13:26:51* Test Item Value Reference Range Interpretation Comme nts POCT GLU (test code = 4030154675) 180 mg/dL 70-110 H Notified Provide r Lab Interpretation (test code = 32939-8) [facility] 13:26:51* Test Item Value Reference Range Interpretation Comme nts POCT GLU (test code = 2524097682) 180 mg/dL 70-110 H Notified Provide r Lab Interpretation (test code = 85471-6) Abnormal [facility]hamXR SHOULDER 2+ VW [id number] 09:05:30 Exam: XR SHOULDER 2+ VW RIGHT, [...] [facility] SH[facility] 2+ VW [id number] 09:05:30 Exam: XR SHOULDER 2+ VW RIGHT, 11/22/2023 1:45 AM. Ordering Physician: IVIS MCDERMOTT. History: R arm injury . Technique: Routine view(s) XR SHOULDER 2+ VW RIGHT. Comparison: None. Findings: No evidence of traumatic malalignment. No acute fracture. 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 Eburnation of thegreater tuberosity, sequela of chronic rotator cuff injury. No focalsofttissue swelling. Lungs are clear as visualized. Cervical fusion. [facility] LOWER EXTREMITY VEIN WITH COMPRESSION BILATERAL [...] waveforms on the right. No DVT on theleft.[facility] LOWER EXTREMITY VEIN WITH COMPRESSION BILATERAL [...] theleft.[facility] Whole Blood 2023-11-22 08:16:23* Test Item Value Reference Range Interpretation Comme [facility] LACTIC ACID (test code = 8560488908) 3.93 mmol/L 0.50-2.20 H Lab Interpretation (test cod e = 46159-5) Abnormal [facility]hamL[facility] Acid Whole Bosmv2804-62-92 08:16:23* Test Item Value Reference Range Interpretation Comme [facility] LACTIC ACID (test code = 6896355281) 3.93 mmol/L 0.50-2.20 H Lab Interpretation (test cod e = 73519-5) Abnormal [facility]hamL[facility] Acid Whole Vqnka5275-21-40 08:16:23* Test Item Value Reference Range Interpretation Comme [facility] LACTIC ACID (test code = 0969029334) 3.93 mmol/L 0.50-2.20 H Lab Interpretation (test cod e = 11768-3) Abnormal [facility]hamProthrombin Time / [id number] 05:00:31* Test Item Value Reference Range Interpretation Comme [facility] PROTIME PATIENT (test code = 5964-2) 15.4 10.1-12.6 H INR (test code = 6301-6) 1.3 Normal INR <1.1; Warfarin Therapeutic range 2.0 to 3.0 or 2.5 to 3.5, depending upon the indications. Lab Interpretation (test code = 81609-7) Abnormal [facility] BrenhamaPTT2024-05-05 05:00:31* Test Item Value Reference Range Interpretation Comme [facility] APTT Patient (test code = 3173-2) 27 26-36 LYNDSAY (test code = LYNDSAY) The [facility] patient population mean normal value for aPTT is 30 seconds. Lab Interpretation (test code = 17563-1) Normal [facility]hamProthrombin Time / [id number] 05:00:31* Test Item Value Reference Range Interpretation Comme nts PROTIME PATIENT (test code = 5964-2) 15.4 10.1-12.6 H INR (test code = 6301-6) 1.3 Normal INR <1.1; Warfarin Therapeutic range 2.0 to 3.0 or 2.5 to 3.5, depending upon the indications. Lab Interpretation (test code = 65505-2) [facility]normal [facility]hamaPTT2024-05-05 05:00:31* Test Item Value Reference Range Interpretation Comme nts APTT Patient (test code = 3173-2) LYNDSAY (test code = LYNDSAY) The [facility] patient population mean normal value for aPTT is 30 seconds. Lab Interpretation (test code = 35053-5) Normal [facility]hamProthrombin Time / [id number] 05:00:31* Test Item Value Reference Range Interpretation Comme nts PROTIME PATIENT (test code = 5964-2) 15.4 10.1-12.6 H INR (test code = 6301-6) 1.3 Normal INR <1.1; Warfarin Therapeutic range 2.0 to 3.0 or 2.5 to 3.5, depending upon the indications. Lab Interpretation (test code = 64169-4) [facility]normal [facility]hamaPTT2024-05-05 05:00:31* Test Item Value Reference Range Interpretation Comme nts APTT Patient (test code = 3173-2) LYNDSAY (test code = LYNDSAY) The [facility] patient population mean normal value for aPTT is 30 seconds. Lab Interpretation (test code = 63040-5) Normal [facility]hamThyroid Stimulating Nypldfb2044-01-72 04:25:31 * Test Item Value Reference Range Interpretation Comme nts TSH (test code = 1799594341) 5.26 0.45-4.70 H Lab Interpretation (test cod e = 66192-9) [facility]normal [facility] Powqwxu5877-05-28 04:25:31 * Test Item Value Reference Range Interpretation Comme nts TSH (test code = 5936629944) 5.26 0.45-4.70 H Lab Interpretation (test cod e = 01506-0) [facility]normal [facility] Xxkosvo6186-25-66 04:25:31 * Test Item Value Reference Range Interpretation Comme nts TSH (test code = 0625418720) 5.26 0.45-4.70 H Lab Interpretation (test cod e = 32059-5) [facility]normal [facility] [id number] 04:18:14Megan Rondon MD ? ? 11/21/2023 11:18 [...] patients.[facility]ham[facility] [id number] 04:11:28* Test Item Value Reference Range Interpretation Comme nts FREE T4 (test code = 0128011958) 1.07 0.78-2.20 Lab Interpretation (test cod e = 40307-9) Normal [facility] [id number] 04:11:28* Test Item Value Reference Range Interpretation Comme nts FREE T4 (test code = 5156911036) 1.07 0.78-2.20 Lab Interpretation (test cod e = 05334-1) Normal [facility] [id number] 04:11:28* Test Item Value Reference Range Interpretation Comme nts FREE T4 (test code = 7073103123) 1.07 0.78-2.20 Lab Interpretation (test cod e = 23063-9) Normal [facility] CHEST 1 [id number] 03:22:56Exam: Chest (1 View), 11/21/2023 9:15 PM. [...] seen.[facility] CHEST 1 [id number] 03:22:56Exam: Chest (1 View), 11/21/2023 9:15 PM. [...] [facility]hamBLO[facility] [id number] 07:00:10* Test Item Value Reference Range Interpretation Comme nts CULTURE (BEAKER) (test code = 1095) No growth in 5 days XR KNEE 3 VIEWS LEFT Non-Weight Pjtuutr6004-29-17 09:27:00XR KNEE 3 VIEWS LEFT CLINICAL INDICATION: S/p fall COMPARISON: None FINDINGS: 3views of the left kne e. There is no fracture or malalignment. The femorotibial andfemoropatellar joint spaces are intact. No joint fluid is demonstrated.Surrounding soft tissues are unremarkable. Scattered atheroscleroticvascular calcifications.[facility] HospitalXR K[facility]EE 3 VIEWS LEFT Non-Weight Ykoqkmg4814-22-66 09:27:00XR KNEE 3 VIEWS LEFT CLINICAL INDICATION: S/p fall COMPARISON: None FINDINGS: 3views of the left knee. There is no fracture or malalignment. The femorotibial andfemoropatellar joint spaces are intact. No joint fluid is demonstrated.Surrounding soft tissues are unremarkable. Scattered atheroscleroticvascular calcifications.[facility] HospitalXR KNEE 3 VIEWS [id number] 09:27:00 [facility] : 1970 Sex: FXR KNEE 3 VIEWS LEFT CLINICAL INDICATION: S/p fall COMPARISON: NoneFINDINGS: 3views of the left knee.There is no fracture or malalignment. The femorotibial andfemoropatellar joint spaces are intact.No joint fluid is demonstrated.Surrounding soft tissues are unremarkable. Scattered atheroscleroticvascular calcifications.IMPRESSION: No acute fracture or malalignment of the knee Electronically Signed By: Maxim Sultana09/08/2023 09:29 CDTWorkstation Name: [id number] kcxwg9908-48-70 08:53:50* Test Item Value Reference Range Interpretation Comme nts POC-Glucose Meter (test code = 1538) 101 mg/dL 70-110 : TESTED AT [facility] [address], [address]: Air Pollution Analyst/Spud Sorter ID = [id number] for Christopher Delacruzu Lab Interpretation (test code = 35621-1) [facility] [id number] 08:53:50* Test Item Value Reference Range Interpretation Comme nts POC-Glucose Meter (test code = 1538) 101 mg/dL 70-110 : TESTED AT [facility] [address] [facility], [address]: Air Pollution Analyst/Spud Sorter ID = [id number] [facility] Lab Interpretation (test code = 14387-7) Normal [facility] HospitalPONC-GLUCOSE [id number] 08:53:50* Test Item Value Reference Range Interpretation Comme nts POC-GLUCOSE METER (BEAKER) (test code = 1538) 101 mg/dL 70-110 : TESTED AT [facility] [address], [address]: Air Pollution Analyst/Spud Sorter ID = [id number] for Christopher Delacruzu BASIC METABOLIC [id number] 05:40:45* Test Item Value Reference Range Interpretation [...] GFR is not applicable for dialysis patients Air Pollution Analyst ID - [id number] 05:40:45* Test Item Value Reference Range Interpretation Comme nts MAGNESIUM (BEAKER) (test cod e = 627) 2.1 mg/dL 1.6-2.6 Air Pollution Analyst ID - SZNUVIFHIQMCUEB0472-77-93 05:40:45* Test Item Value Reference Range Interpretation Comme nts PHOSPHORUS (BEAKER) (test co de = 604) 5.0 mg/dL 2.3-4.7 H Air Pollution Analyst ID - ADMINCBC W/PLT COUNT & AUTO [id number] 04:49:23* Test Item Value Reference Range Interpretation [...] code = 2801) 0.40 % 0.00-1.00 POCT-GLUCOSE [id number] 21:40:23* Test Item Value Reference Range Interpretation Comme nts POC-GLUCOSE METER (BEAKER) (test code = 1538) 144 mg/dL 70-110 H : TESTED AT [facility] [address] [facility], [address]: Air Pollution Analyst/Spud Sorter ID = [id number] for Diana Baeza Venous doppler legs hfsfbbsla0301-47-41 14:27:12PV LAB - Lower Extremities DVT Study Demographics Patient Name YUE LAWS Date of Study 09/07/2023 ESTELLE Age 53 Visit Number [id number] Gender Female Accession Number [id number] Date of 1970 Referring EDWARD FERRER Room Number 2263 Physician Cardiology Specialist Adalberto Wood Interpreting John Solorio, Physician FellowProcedureType [...] in cm/s ; Di[facility] zovlwddhr5616-71-03 14:27:12PV LAB - Lower Extremities DVT Study Demographics Patient Name YUE LAWS Date of Study 09/07/2023 ESTELLE Age 53 Visit Number [id number] Gender Female Accession Number [id number] Dateof 1970 Referring EDWARD FERRER Room Number 2263 Physician Cardiology Specialist Adalberto Wood Interpreting John Solorio, Physician FellowProcedureType [...] in cm/s ; Diameters are measured in [facility] [id number] 04:05:54* Test Item Value Reference Range Interpretation Comme nts MAGNESIUM (BEAKER) (test code = 627) 2.0 mg/dL 1.6-2.6 Specimen sligh tly hemolyzed Air Pollution Analyst ID - MADELINE DZDTTRHFJES8615-79-72 04:05:54* Test Item Value Reference Range Interpretation Comme nts PHOSPHORUS (BEAKER) (test code = 604) 4.5 mg/dL 2.3-4.7 Specimen sligh tly hemolyzed Air Pollution Analyst ID - MADELINE WBASIC METABOLIC [id number] 04:05:54* Test Item Value Reference Range Interpretation [...] GFR is not applicable for dialysis patients Air Pollution Analyst ID - MADELINE WCBC W/PLT COUNT & AUTO [id number] 03:40:48* Test Item Value Reference Range Interpretation [...] code = 2801) 0.30 % 0.00-1.00 POCT-GLUCOSE [id number] 21:28:35* Test Item Value Reference Range Interpretation Comme nts POC-GLUCOSE METER (BEAKER) (test code = 1538) 127 mg/dL 70-110 H : TESTED AT [address], [address]: Air Pollution Analyst/Spud Sorter ID = [id number] for Ryan Morin POCT-GLUCOSE [id number] 18:49:21* Test Item Value Reference Range Interpretation Comme nts POC-GLUCOSE METER (BEAKER) (test code = 1538) 122 mg/dL 70-110 H : TESTED AT [address], [address]: Air Pollution Analyst/Spud Sorter ID = [id number] for Lauren Santillan POCT-GLUCOSE [id number] 13:27:27* Test Item Value Reference Range Interpretation Comme nts POC-GLUCOSE METER (BEAKER) (test code = 1538) 130 mg/dL 70-110 H : TESTED AT [address], [address]: Air Pollution Analyst/Spud Sorter ID = [id number] for Lauren Santillan RYVSIAKGL2804-24-86 09:09:14* Test Item Value Reference Range Interpretation Comme nts MAGNESIUM (BEAKER) (test cod e = 627) 2.2 mg/dL 1.6-2.6 [id number] 09:09:14* Test Item Value Reference Range Interpretation Comme nts PHOSPHORUS (BEAKER) (test co de = 604) 4.8 mg/dL 2.3-4.7 H BASIC METABOLIC RLOSE2734-15-25 09:09:14* Test Item Value Reference Range Interpretation [...] is not applicable for dialysis patients POCT-GLUCOSE [id number] 08:33:30* Test Item Value Reference Range Interpretation Comme nts POC-GLUCOSE METER (BEAKER) (test code = 1538) 132 mg/dL 70-110 H : TESTED AT [facility] [address], [address]: Air Pollution Analyst/Spud Sorter ID = [id number] for Lauren Santillan CBC W/PLT COUNT & AUTO [id number] 05:47:59* Test Item Value Reference Range Interpretation [...] code = 2801) 0.40 % 0.00-1.00 POCT-GLUCOSE [id number] 21:35:37* Test Item Value Reference Range Interpretation Comme nts POC-GLUCOSE METER (LATOYA) (test code = 1538) 129 mg/dL 70-110 H : TESTED AT [facility] [address], [address]: Air Pollution Analyst/Spud Sorter ID = [id number] for Ryan Morin MR Brain Without & With IV Yfruomxj9588-60-92 15:49:58MR BRAIN WITH & WITHOUT IV CONTRAST [...] limits. No obstructive paranasal sinus disease. Additionalfindings: None.[facility] HospitalMR Brain Without & With IV Hovvxcpv2917-91-91 15:49:58MR BRAIN WITH & WITHOUT IV CONTRAST [...] limits. No obstructive paranasal sinus disease. Additionalfindings: None.[facility] HospitalMR BRAIN WITH & WITHOUT IV [id number] 15:49:58 [facility] : 1970 Sex: FMR [...] Signed By: Zeinab Dempsey09/05/2023 15:53 CDTWorkstation Name: [id number] METER 2023-09-05 08:34:25* Test Item Value Reference Range Interpretation Comme nts POC-GLUCOSE METER (BEAKER) (test code = 1538) 115 mg/dL 70-110 H : TESTED AT [facility] [address] [facility], [address]: Air Pollution Analyst/Spud Sorter ID = [id number] for DOMINGA AMADOR BASIC METABOLIC [id number] 06:06:56* Test Item Value Reference Range Interpretation [...] GFR is not applicable for dialysis patients Air Pollution Analyst ID - [id number] 06:06:56* Test Item Value Reference Range Interpretation Comme nts MAGNESIUM (BEAKER) (test cod e = 627) 2.2 mg/dL 1.6-2.6 Air Pollution Analyst ID - [id number] 06:06:56* Test Item Value Reference Range Interpretation Comme nts PHOSPHORUS (BEAKER) (test co de = 604) 3.8 mg/dL 2.3-4.7 Air Pollution Analyst ID - ADMINCBC W/PLT COUNT & AUTO [id number] 05:29:32* Test Item Value Reference Range Interpretation [...] code = 2801) 0.50 % 0.00-1.00 POCT-GLUCOSE [id number] 04:55:18* Test Item Value Reference Range Interpretation Comme nts POC-GLUCOSE METER (BEAKER) (test code = 1538) 99 mg/dL 70-110 : TESTED AT [facility] [address], [address]: Air Pollution Analyst/Spud Sorter ID = [id number] for Mikel Kyahawn POCT-GLUCOSE [id number] 21:49:23* Test Item Value Reference Range Interpretation Comme nts POC-GLUCOSE METER (BEAKER) (test code = 1538) 124 mg/dL 70-110 H : TESTED AT [facility] [address], [address]: Air Pollution Analyst/Spud Sorter ID = [id number] for Mikel, Reshawn POCT-GLUCOSE [id number] 15:55:53* Test Item Value Reference Range Interpretation Comme nts POC-GLUCOSE METER (TrabajoPanelAKER) (test code = 1538) 126 mg/dL 70-110 H : TESTED AT [facility] [address] [facility], [address]: Air Pollution Analyst/Spud Sorter ID = [id number] for Tramaine Daniels [id number] 12:37:56* Test Item Value Reference Range Interpretation Comme nts PROCALCITONIN (BEAKER) (test code = 3036) < ng/mL <0.05 SEPSIS RISK (ng/mL)Low: 0.05-0.50Intermediate: 0.51-2.00High: >=2.01SARS- CoV2/Influenza/RSV [id number] 12:18:09* Test Item Value Reference Range Interpretation Comments SARS-COV2/RT-PCR (test code = 82207-4) Negative Negative The SARS-CoV-2 target nucleic acids [...] provider. Influenza A RT-PCR (test code = 47352-3) Negative Negative The Flu A target nucleic acids are not detected in this specimen. Influenza B RT-PCR (test code = 96692-0) Negative Negative The Flu B target nucleic acids are not detected in this specimen. RSV by RT-PCR (test code = 31609-2) Negative Negative The RSV target nucleic acids [...] SARS-CoV-2/Flu/RSV by their healthcare provider. Results from [facility] Xpert Xpress SARS-CoV-2/Flu/RSV test should be [...] the Act. Fact Sheet for Healthcare Providers:https://w Flow[employer]/Docu ments/Xpert%20Xpres s%20SARS%20CoV-2/Fa ct%20Sheets/302-390 2%23CZXG-QCA-5%20HE ALTHCARE%20PROVIDER S%20FACT%20SHEET.pd f Fact Sheet for Healthcare Patients:https://Lightbox/Docum ents/Xpert%20Xpress %20SARS%20Cov-2/Fac t%20Sheets/302-3801 %29JGRQ-ZEY-2%20PAT IENT%20FACT%20SHEET .pdf Lab Interpretation (test code = 58720-0) Normal [facility]Influenza/RSV SQ-[id number] 12:18:09* Test Item Value Reference Range Interpretation Comments SARS-COV2/RT-PCR (test code = 06740-7) Negative Negative The SARS-CoV-2 target nucleic acids [...] provider. Influenza A RT-PCR (test code = 86032-7) Negative Negative The Flu A target nucleic acids are not detected in this specimen. Influenza B RT-PCR (test code = 04898-9) Negative Negative The Flu B target nucleic acids are not detected in this specimen. RSV by RT-PCR (test code = 70071-7) Negative Negative The RSV target nucleic acids [...] the Act. Fact Sheet for Healthcare Providers:https://w Flow[employer]/Docu ments/Xpert%20Xpres s%20SARS%20CoV-2/Fa ct%20Sheets/302-390 2%97PQOM-NDA-4%20HE ALTHCARE%20PROVIDER S%20FACT%20SHEET.pd f Fact Sheet for Healthcare Patients:https://ww -[employer]/Docum ents/Xpert%20Xpress %20SARS%20Cov-2/Fac t%20Sheets/302-3801 %32TOAE-DPS-7%20PAT IENT%20FACT%20SHEET .pdf Lab Interpretation (test code = 71092-6) Normal [facility]OV[facility]/INFLUENZA/RSV [id number] 12:18:09* Test Item Value Reference Range Interpretation Comme nts SARS-COV2/RT-PCR (test code = 0574763) Negative Negative The SARS-CoV-2 t arget nucleic [...] provider. INFLUENZA A RT-PCR (test code = 4803015) Negative Negative The Flu A target nucleic acids are not detected in this specimen. INFLUENZA B RT-PCR (test code = 0093985) Negative Negative The Flu B target nucleic acids are not detected in this specimen. RSV RT-PCR (test code = 6663322) Negative Negative The RSV target n ucleic [...] 564(g) of the Act.Fact Sheet for Healthcare Providers:https://www.[employer]trac/Documents/Xpert%20Xpress%20SARS%20CoV-2/Fact%2 0Sheets/3023902%04LYBX-GJW-8%20HEALTHCARE%20PROVIDERS%20FACT%20SHEET.pdfFact Sheet for Healthcare Patients:https://ww w.[employer].i[employer]trac/Documents/Xpert%20Xpress%20SARS%20Cov-2/Fact%20Sheets/3023801%20S ARS-COV-2%20PATIENT%20FACT%20SHEET.pdfPOCT-GLUCOSE [id number] 11:08:35* Test Item Value Reference Range Interpretation Comme nts POC-GLUCOSE METER (BEAKER) (test code = 1538) 111 mg/dL 70-110 H : TESTED AT [facility] [address] [facility], [address]: Air Pollution Analyst/Spud Sorter ID = [id number] for HemTramaine montgomery POCT-GLUCOSE SDATK5630-16-09 08:16:42* Test Item Value Reference Range Interpretation Comme nts POC-GLUCOSE METER (BEAKER) (test code = 1538) 108 mg/dL 70-110 : TESTED AT [facility] [address] [facility], [address]: Air Pollution Analyst/Spud Sorter ID = [id number] for Beata Vargas MR spine lumbar without IV yuaqrhqp6833-95-30 07:58:49MR LUMBAR SPINE WITHOUT IV CONTRAST, MR [...] Posterior ligament ossifications at the calcifications at O34-V28khwuzce moderate spinal canal stenosisPosterior disc osteophyte at the T11-T12 level causing mild spinal canalstenosis The spinal cord is normal in caliber and signal intensity. There is no significant foraminal or spinal canal stenosis. 2.1 x 2.3 cm left adrenal nodule, incompletely characterized Paraspinal soft tissues are unremarkable. Lumbar spine: Postoperative changes from posterior decompression at the L3 and G3ojiizy. A 1.3 x 1.5 cm (AP by [...] facet arthropathy with moderatebilateral neural foraminal stenosisCHI San Vicente HospitalMR spine lumbar without IV qlpydiop9125-39-08 07:58:49MR LUMBAR SPINE WITHOUT IV CONTRAST, MR [...] Posterior ligament ossifications at the calcifications at R35-E10noxxtsw moderate spinal canal stenosisPosterior disc osteophyte at the T11-T12 level causing mild spinal canalstenosis The spinal cord is normal in caliber and signal intensity. There is no significant foraminal or spinal canal stenosis. 2.1 x 2.3 cm left adrenal nodule, incompletely characterized Paraspinal soft tissues are unremarkable. Lumbar spine: Postoperative changes from posterior decompression at the L3 and Q4quyvey. A 1.3 x 1.5 cm (AP by [...] facet arthropathy with moderatebilateral neural foraminal stenosisCHI San Vicente HospitalMR thoracic spine without IV ihwidjhw5387-71-66 07:58:49MR LUMBAR SPINE WITHOUT IV CONTRAST, MR [...] Posterior ligament ossifications at the calcifications at I81-M35erlnkoe moderate spinal canal stenosisPosterior disc osteophyte at the T11-T12 level causing mild spinal canalstenosis The spinal cord is normal in caliber and signal intensity. There is no significant foraminal or spinal canal stenosis. 2.1 x 2.3 cm left adrenal nodule, incompletely characterized Paraspinal soft tissues are unremarkable. Lumbar spine: Postoperative changes from posterior decompression at the L3 and N2lmremc. A 1.3 x 1.5 cm (AP by [...] facet arthropathy with moderatebilateral neural foraminal stenosisCHI San Vicente HospitalMR thoracic spine without IV zawmhnld9685-28-83 07:58:49MR LUMBAR SPINE WITHOUT IV CONTRAST, MR [...] Posterior ligament ossifications at the calcifications at J98-I08utnpvjt moderate spinal canal stenosisPosterior disc osteophyte at the T11-T12 level causing mild spinal canalstenosis The spinal cord is normal in caliber and signal intensity. There is no significant foraminal or spinal canal stenosis. 2.1 x 2.3 cm left adrenal nodule, incompletely characterized Paraspinal soft tissues are unremarkable. Lumbar spine: Postoperative changes from posterior decompression at the L3 and J3ssvktw. A 1.3 x 1.5 cm (AP by [...] facet arthropathy with moderatebilateral neural foraminal stenosisCHI San Vicente HospitalMR spine cervical without IV vkzuxrsc4741-10-09 07:58:49MR LUMBAR SPINE WITHOUT IV CONTRAST, MR THORACIC SPINE WITHOUT IVCONTRAST, MR CERVICAL SPINE WITHOUT IV CONTRAST INDICATION: Myelopathy, acute or progressive TECHNIQUE: Multiplanar, multisequence nonc ontrast MR images of thecervical, thoracic, and lumbar spine were obtained. COMPARISON: MRI lumbar, 06/13/2023 and 06/12/2023 CT cervical spine FINDINGS:Cervical Spine: The craniocervical junction is normal. The vertebral bodies have normal height, alignment, and signalintensity. Posterior changesfrom anterior cervical discectomy fusion at C3-C7 STIR hyperintensity seen within the cord at the C3-C4 level Paraspinalsoft tissues are unremarkable. C2-C3: Moderate spinal canal stenosis and facet arthropathy C3-C4: Moderate to severe spinal canal stenosis and mild to moderatebilateral neural foraminal stenosis C4-C5: No significant spinal canal or neural foraminal stenosis C5-C6: No significant spinal canal or neural foraminal stenosis C6-C7: Ligamentum flavum buckling with mild to moderate spinal canalstenosis C7-T1: No significant spinal canal or neural foraminal stenosis Thoracic spine:The vertebral bodies have normal height, alignment, and signalintensity. Mild to moderate spondylosis and facet arthropathy are present withinthe spine. Posterior ligament ossifications at the calcifications at I28-N98vrlcwgd moderate spinal canal stenosisPosterior disc osteophyte at the T11-T12 level causing mild spinal canalstenosis The spinal cord is normal in caliber and signal intensity. There is no significant foraminal or spinal canal stenosis. 2.1 x 2.3 cm left adrenal nodule, incomplete ly characterized Paraspinal soft tissues are unremarkable. Lumbar spine: Postoperative changes fromposterior decompression at the L3 and G8mtbngt. A 1.3 x 1.5 cm (AP by [...] facet arthropathy with moderatebilateral neural foraminal stenosisCHI San Vicente HospitalMR spine cervical without IV cdmmmjqz2600-33-85 07:58:49MR LUMBAR SPINE WITHOUT IV CONTRAST, MR [...] Posterior ligament ossifications at the calcifications at T49-A16bzgtjeq moderate spinal canal stenosisPosterior disc osteophyte at the T11-T12 level causing mild spinal canalstenosis The spinal cord is normal in caliber and signal intensity. There is no significant foraminal or spinal canal stenosis. 2.1 x 2.3 cm left adrenal nodule, incompletely characterized Paraspinal soft tissues are unremarkable. Lumbar spine: Postoperative changes from posterior decompression at the L3 and U9srldml. A 1.3 x 1.5 cm (AP by [...] facet arthropathy with moderatebilateral neural foraminal stenosisCHI San Vicente HospitalMR CERVICAL SPINE WITHOUT IV [id number] 07:58:49 [facility]UE HEATHERGRACIELA MCCABE : [...] ligament ossifications at the calcifications at T10- Y08jkygzim moderate spinal canal stenosisPosterior disc osteophyte at the T11- T12 level causing mild spinal canalstenosisThe spinal cord is normal in caliber and signal intensity. There is no significant foraminal or spinal canal stenosis.2.1 x 2.3 cm left adrenal nodule, incompletely characterizedParaspinal soft tissues are unremarkable.Lumbar spine:Postoperative changes from posterior decompression at the L3 and V4ruczwz. A 1.3 x 1.5 cm (AP by [...] Signed By: Maxim Sultana09/04/2023 08:00 CDTWorkstation Name: [id number] THORACIC SPINE WITHOUT IV [id number] 07:58:49 [facility] : 1970 [...] ligament ossifications at the calcifications at T10- C45egvldwu moderate spinal canal stenosisPosterior disc osteophyte at the T11- T12 level causing mild spinal canalstenosisThe spinal cord is normal in caliber and signal intensity. There is no significant foraminal or spinal canal stenosis.2.1 x 2.3 cm left adrenal nodule, incompletely characterizedParaspinal soft tissues are unremarkable.Lumbar spine:Postoperative changes from posterior decompression at the L3 and M5rjxsso. A 1.3 x 1.5 cm (AP by [...] incompletely characterized,similar to prior examElectronically Signed By: aMxim Sultana09/04/2023 08:00 CDTWorkstation Name: [id number] LUMBAR SPINE WITHOUT IV [id number] 07:58:49 [facility] : 1970 [...] ligament ossifications at the calcifications at T10- A20mkdvqya moderate spinal canal stenosisPosterior disc osteophyte at the T11- T12 level causing mild spinal canalstenosisThe spinal cord is normal in caliber and signal intensity. There is no significant foraminal or spinal canal stenosis.2.1 x 2.3 cm left adrenal nodule, incompletely characterizedParaspinal soft tissues are unremarkable.Lumbar spine:Postoperative changes from posterior decompression at the L3 and L6gidbdf. A 1.3 x 1.5 cm (AP by [...] Signed By: Maxim Sultana09/04/2023 08:00 CDTWorkstation Name: [id number] 07:46:14 * Test Item Value Reference Range Interpretation Comme nts FERRITIN (BEAKER) (test code = 361) 31.77 ng/mL 5.00-275.00 Air Pollution Analyst ID - hgIRON, TIBC, % SAT. (WITHOUT FERRITIN)2023-09-04 07:24:52* Test Item Value Reference Range Interpretation Comme nts IRON (BEAKER) (test code = 547) 22.0 ug/dL 40.0-160.0 L TOTAL IRON BINDING CAPACITY (BEAKER) (test code = 769) 369 ug/dL 250-450 IRON % SATURATION (2) (LINNEAAKE R) (test code = 2590) 6 % 20-55 L Air Pollution Analyst ID - hgCT spine thoracic without IV pwuszgpc6334-34-92 05:42:45EXAM: CT THORACIC SPINE WITHOUT IV CONTRAST, [...] Bones/alignment: Age- indeterminate nondisplaced fracture of the F1anscfmnuu elements, predominantly involving the lamina and pinusprocess.. [...] Postoperative changes in themidline posterior lumbar soft tissues.[facility] HospitalCT spine lumbar without IV llntzobu9072-40-47 05:42:45EXAM: CT THORACIC SPINE WITHOUT IV CONTRAST, [...] Bones/alignment: Age- indeterminate nondisplaced fracture of the G8nmammzowz elements, predominantly involving the lamina and pinusprocess.. [...] Postoperative changes in themidline posterior lumbar soft tissues.[facility] HospitalCT spine thoracic without IV contrast 2023-09-04 [...] Bones/alignment: Age- indeterminate nondisplaced fracture of the T3mxknehqhf elements, predominantly involving the lamina and pinusprocess.. [...] Postoperative changes in themidline posterior lumbar soft tissues.[facility] HospitalCT spine lumbar without IV saxckiar1643-15-71 05:42:45EXAM: CT THORACIC SPINE WITHOUT IV CONTRAST, [...] Bones/alignment: Age- indeterminate nondisplaced fracture of the S3arpzdjecg elements, predominantly involving the lamina and pinusprocess.. [...] Postoperative changes in themidline posterior lumbar soft tissues.[facility] HospitalCT LUMBAR SPINE WITHOUT IV OHNCWATD5023-12-38 05:42:45[facility] : 1970 Sex: FEXAM: [...] spine:Bones/alignment: Age- indeterminate nondisplaced fracture of the K2afkciwpdz elements, predominantly i nvolving the lamina and [...] Signed By: Suzan Weaver09/04/2023 05:45 CDTWorkstation Name: [id number] THORACIC SPINE WITHOUT IV NWYJXDBU9015-04-37 05:42:45 [facility] : 1970 Sex: FEXAM: [...] spine:Bones/alignment: Age- indeterminate nondisplaced fracture of the B6aipbyxchg elements, predominantly i nvolving the lamina and [...] Signed By: Suzan Chandra 05:45 CDTWorkstation Name: [id number] 2023-09-04 04:44:34* Test Item Value Reference Range Interpretation Comme nts FIBRINOGEN LEVEL (BEAKER) (t est code = 658) 410 mg/dl 225-434 Urinalysis without Jucyslcvlym3122-86-15 03:58:52* Test Item Value Reference Range Interpretation Comme nts Color, UA (test code = 5778-6) Light Yellow Clarity, UA (test code = 5767-9) Hazy Specific [place], UA (test code = 5811-5) 1.017 1.001-1.035 pH, UA (test code = 5803-2) 6 5.0-8.0 Protein, UA (test code = 69665-4) 10 mg/dL Negative A Glucose, UA (test code = 365) Negative Negative Ketones, UA (test code = 2514-8) Trace Negative A Bilirubin, UA (test code = 10011-6) Negative Negative Blood, UA (test code = 96839-1) Trace Negative A Nitrite, UA (test code = 5802-4) Negative Negative Leukocytes, UA (test code = 5799-2) Negative Negative Urobilinogen, UA (test code = 43400-5) 0.2 0.2-1.0 Specimen Source (test code = 2795) LYNDSAY (test code = LYNDSAY) Air Pollution Analyst ID - [auto]Air Pollution Analyst ID - tech Lab Interpretation (test code = 67005-6) Abnormal [facility] Hospital[facility]inal[facility] without Souxkndtycs1130-68-61 03:58:52* Test Item Value Reference Range Interpretation Comme nts Color, UA (test code = 5778-6) Light Yellow Clarity, UA (test code = 5767-9) Hazy Specific [place], UA (test code = 5811-5) 1.017 1.001-1.035 pH, UA (test code = 5803-2) 6 5.0-8.0 Protein, UA (test code = 53743-0) 10 mg/dL Negative A Glucose, UA (test code = 365) Negative Negative Ketones, UA (test code = 2514-8) Trace Negative A Bilirubin, UA (test code = 49628-6) Negative Negative Blood, UA (test code = 10395-8) Trace Negative A Nitrite, UA (test code = 5802-4) Negative Negative Leukocytes, UA (test code = 5799-2) Negative Negative Urobilinogen, UA (test code = 28040-3) 0.2 0.2-1.0 Specimen Source (test code = 2795) LYNDSAY (test code = LYNDSAY) Air Pollution Analyst ID - [auto]Air Pollution Analyst ID - tech Lab Interpretation (test code = 81749-4) Abnormal [facility] HospitalURINALYSIS WITHOUT CPWSMYPTQOO9397-94-05 03:58:52* Test Item Value Reference Range Interpretation [...] 0.2 0.2-1.0 SOURCE(BEAKER) (test code = 2795) Air Pollution Analyst ID - [auto]Air Pollution Analyst ID - techCBC W/PLT COUNT & AUTO [...] 2801) 0.70 % 0.00-1.00 Rapid drug screen, cmxfg4731-20-44 02:20:15* Test Item Value Reference Range Interpretation Comme nts Barbiturate Screen (test code = 22929-6) Negative Negative Benzodiazepine Screen (test code = 65422-4) Negative Negative Cocaine (Metab.) Screen (test code = 3397-7) Positive Negative A Methadone Screen (test code = 21837-4) Negative Negative Opiate Screen (test code = 08152-9) Negative Negative Cannabinoid Screen (test code = 67281-9) Positive Negative A Amph/Methamph Screen (test code = 88372-2) Negative Negative Phencyclidine Screen (test code = 80109-0) Negative Negative pH, UA (test code = 5803-2) 6 5.0-8.0 LYNDSAY (test code = LYNDSAY) DRUG CUTOFF CONC.Cocaine 300 ng/mL Cannabinoid 50 ng/mLBenzodiazepine 200 ng/mLBarbiturate 200 ng/mLPhencyclidine 25 ng/mLOpiate 300 ng/mLMethadone 300 ng/mLAmphetamine/ 1000 ng/mL Methamphetamine This assay provides an unconfirmed qualitative test result for the clinical management of patients in emergency situations. Chain of custody not maintained. Some bggk-dbu-iapcewm medications, as well as adulterants, may cause inaccurate results. Clinical correlation should be applied. A more comprehensive drug screen or confirmation of a detected drug may be performed upon request.Air Pollution Analyst ID - ADMIN Lab Interpretation (test code = 40039-3) Abnormal [facility] HospitalRapid drug screen, nsxyz4972-18-37 02:20:15* Test Item Value Reference Range Interpretation Comme nts Barbiturate Screen (test code = 74024-8) Negative Negative Benzodiazepine Screen (test code = 35465-0) Negative Negative Cocaine (Metab.) Screen (test code = 3397-7) Positive Negative A Methadone Screen (test code = 38510-4) Negative Negative Opiate Screen (test code = 42280-0) Negative Negative Cannabinoid Screen (test code = 92903-0) Positive Negative A Amph/Methamph Screen (test code = 81473-0) Negative Negative Phencyclidine Screen (test code = 81556-5) Negative Negative pH, UA (test code = 5803-2) 6 5.0-8.0 LYNDSAY (test code = LYNDSAY) DRUG CUTOFF CONC.Cocaine 300 ng/mL Cannabinoid 50 ng/mLBenzodiazepine 200 ng/mLBarbiturate 200 ng/mLPhencyclidine 25 ng/mLOpiate 300 ng/mLMethadone 300 ng/mLAmphetamine/ 1000 ng/mL Methamphetamine This assay provides an unconfirmed qualitative test result for the clinical management of patients in emergency situations. Chain of custody not maintained. Some eldf-frt-njioxou medications, as well as adulterants, may cause inaccurate results. Clinical correlation should be applied. A more comprehensive drug screen or confirmation of a detected drug may be performed upon request.Air Pollution Analyst ID - ADMIN Lab Interpretation (test code = 91946-6) Abnormal [facility] HospitalRAPID DRUG SCREEN, [id number] 02:20:15* Test Item Value Reference Range Interpretation [...] situations. Chain of custody not maintained. Some mgvm-fjp-efwciag medications, as well as adulterants, may cause inaccurate results. Clinical correlation should be applied. A more comprehensive drug screen or confirmation of a detected drug may be performed upon request.Air Pollution Analyst ID - ADMINB-TYPE NATRIURETIC FACTOR (BNP)2023-09-04 02:11:53* Test Item Value Reference Range Interpretation Comme nts B-TYPE NATRIURETIC PEPTIDE (BEAKER) (test code = 700) 1761 pg/mL 0-100 H Air Pollution Analyst ID - ADMINLACTIC ACID, [id number] 02:10:37* Test Item Value Reference Range Interpretation Comme nts LACTATE BLOOD VENOUS (2) (BEAKER) (test code = 2872) 1.04 mmol/L 0.50-2.00 Specimen slightl y hemolyzed Air Pollution Analyst ID - MHSVSVCUQPQNQPZ1194-56-41 02:04:37* Test Item Value Reference Range Interpretation Comme nts PHOSPHORUS (BEAKER) (test code = 604) 4.2 mg/dL 2.3-4.7 Specimen sligh tly hemolyzed Air Pollution Analyst ID - ADMINCOMPREHENSIVE METABOLIC [id number] 02:04:37* Test Item Value Reference Range Interpretation [...] GFR is not applicable for dialysis patients Air Pollution Analyst ID - XBNNOICKSCTPOU0996-88-55 02:04:36* Test Item Value Reference Range Interpretation Comme nts MAGNESIUM (LATOYA) (test code = 627) 2.1 mg/dL 1.6-2.6 Specimen sligh tly hemolyzed Air Pollution Analyst ID - CPZADX-PQLEB8943-86-16 01:45:13* Test Item Value Reference Range Interpretation [...] code = 760) 28.5 seconds 22.5-36.0 PROTHROMBIN TIME/[id number] 01:42:15* Test Item Value Reference Range Interpretation Comme nts PROTIME (LATOYA) (test code = 759) 15.8 seconds 11.9-14.2 H INR (LATOYA) (test code = 370) 1.25 <=5.90 RECOMMENDED COUMADIN/WARFARIN INR THERAPY RANGESSTANDARD DOSE: 2.0 - 3.0 Includes: PROPHYLAXIS for venous thrombosis, systemic embolization; TREATMENT for venous thrombosis and/or pulmonary embolus.HIGH RISK: Target INR is 2.5-3.5 for patients with mechanical heart valves.MKP-ZBPTDNZ3065-56-16 00:00:00Ordered by an unspecified provider.[facility] HospitalEKG-ENWZXSS9182-91-53 00:00:00Ordered by an unspecified provider.[facility] HospitalLactic Acid Whole Nbnwl4233-50-05 20:51:22* Test Item Value Reference Range Interpretation Comme nts LACTIC ACID (test code = 1582678342) 1.56 mmol/L 0.50-2.20 Lab Interpretation (test cod e = 99619-7) Normal [facility]BL[facility] EOJJGII7601-31-09 07:00:09* Test Item Value Reference Range Interpretation Comme nts CULTURE (BEAKER) (test code = 1095) No growth in 5 days T-SPOT(R).[id number] 18:35:00* Test Item Value Reference Range Interpretation Comme nts T-SPOT.TB (test code = 8217868) Negative SeeBelow Normal Value: Ne gativeA negative [...] CORRECTED FOR NEG CONTROL (test code = 7318328) 1 PANEL B SPOT COUNT CORRECTED FOR NEG CONTROL (test code = 5322524) 0 NEGATIVE CONTROL (test code = 4580583) Passed POSITIVE CONTROL (test code = 2255289) Passed LYNDSAY (test code = LYNDSAY) [id number] [facility] HospitalT-SPOT(R).[id number] 18:35:00* Test Item Value Reference Range Interpretation Comme nts T-SPOT.TB (test code = 78886-0) Negative SeeBelow Normal Value: Ne gativeA negative [...] CORRECTED FOR NEG CONTROL (test code = 93333-5) 0 NEGATIVE CONTROL (test code = 28382-0) Passed POSITIVE CONTROL (test code = 78066-8) Passed LYNDSAY (test code = LYNDSAY) [id number] [facility] HospitalTransesophageal ffhz1685-77-22 13:41:18 Transesophageal Echocardiography Report (CHETAN) Demographics Patient Name YUE LAWS Date of Study 06/16/2023 ESTELLE Gender Female Visit Number [id number] Race Room Number 1055 Number Date of 1970 Referring Physician Age 53 year(s) Cardiology Specialist Interpreting Physician Brian MDProcedure Type of Study [...] Valve Partially visualized. Pulmonic Valve Not visualized.[facility] HospitalTransesophageal echo 2023-06-16 13:41:18Transesophageal Echocardiography Report (CHETAN) Demographics Patient Name YUE LAWS Date of Study 06/16/2023 ESTELLE Gender Female Visit Number [id number] Race Room Number 1055 Number Date of 1970 Referring Physician Age 53 year(s) Cardiology Specialist Interpreting Physician Brian MDProcedure Type of Study [...] valve.Tricuspid Valve Partially visualized. Pulmonic Valve Not visualized.[facility] hdiwvg2203-13-99 09:55:41* Test Item Value Reference Range Interpretation Comme nts Result (test code = 6463-4) No MRSA isolated [facility] [id number] 09:55:41* Test Item Value Reference Range Interpretation Comme nts CULTURE (Ethical Electric) (test code = 1095) No MRSA isolated CRYPTOCOCCAL [id number] 15:50:36* Test Item Value Reference Range Interpretation Comme nts CRYPTOCOCCAL ANTIGEN, SERUM ([employer]) (test code = 1828) Negative Negative, Interference SPUTUM CULTURE + GRAM [id number] 10:30:11* Test Item Value Reference Range Interpretation Comme nts CULTURE ([employer]) (test code = 1095) PSEUDOMONAS AERUGINOSA A [...] GRAM STAIN RESULT (BEAKER) (test code = 401153) 10-15 epithelial cells GRAM STAIN RESULT (BEAKER) (test code = 209504) 2+ gram positive cocci in chains and pairs GRAM STAIN RESULT (BEAKER) (test code = 870589) 1+ gram negative rods GRAM STAIN RESULT (BEAKER) (test code = 500100) 1+ yeast 2+ Normal respiratory rebel presentVANCOMYCIN LEVEL, [id number] 06:41:26* Test Item Value Reference Range Interpretation Comme nts VANCOMYCIN TROUGH (BEAKER) ( test code = 522) 17.0 ug/mL 10.0-20.0 Air Pollution Analyst ID - ADMINECHO W CONTRAST & [id number] 13:44:03Transthoracic Echocardiography Report (TTE) Demographics Patient Name YUE LAWS Date of Study 06/14/2023 ESTELLE Gender Female Visit Number [id number] Race Room Number 1055 Number Date of 1970 Referring Aydee Go MD Physician Age 53 year(s) Cardiology Specialist James Albarran RDCS Interpreting Physician Brian MDProcedure [...] Peak Velocity: 0.85 m/s Peak Gradient: 2.89 mmHgJohn C. Fremont HospitalECHO W CONTRAST & [id number] 13:44:03Transthoracic Echocardiography Report (TTE) Demographics Patient Name YUE LAWS Date of Study 06/14/2023 ESTELLE Gender Female Visit Number [id number] Race 388 Room Number 1055 Number Date of 1970 Referring Aydee Go MD Physician Age 53 year(s) Cardiology Specialist James Albarran AISHWARYA Interpreting Mauricio Bonilla, Physician MDProcedure Type of [...] Velocity: 0.85 m/s Peak Gradient: 2.89 mmHgCHI San Vicente HospitalHEMOGLOBIN A1C 2023-06-14 09:26:42* Test Item Value Reference Range Interpretation Comme nts HEMOGLOBIN A1C ELECTROPHORESIS (BEAKER) (test code = 3811) 6.7 % See_Comment H [Automated me ssage] The system which generated this result transmitted reference range: <=5.6%. The reference range was not used to interpret this result as normal/abnormal. "The A1c is measured using a [facility]-certified method. HbA1c value equal to or greater than 6.5% as the diagnosis cutoff for diabetes. An HbA1c value of 5.7- 6.4% indicates increased risk for diabetes (prediabetes)."Air Pollution Analyst ID - ADMOperator ID - ADMECG 12 eojq2479-50-13 09:06:12Ventricular Rate 97 BPMAtrial Rate 97 BPMP-R Interval 146 msQRS Duration 96 msQ-T Interval 378 msQTC Calculation(Bazett) 480 msP Enon 68 degreesR [place] 107 degreesT [place] 18 degrees Suspect arm leadreversal, interpretation assumes no reversalNormal sinus rhythmRightward axisNonspecific T wave abnormalityAbnormal ECGWhen compared with ECG of 30-MAR-2023 13:06,QRS axis Shifted rightConfirmed by Luis Lopez ([id number]) on 06/14/2023 9:06:07 [facility]EC[facility] jazi1243-21-66 09:06:12Ventricular Rate 97 BPMAtrial Rate 97 BPMP-R Interval 146 msQRS Duration 96 msQ-T Interval 378 msQTC Calculation(Bazett) 480 msP [place] 68 degreesR [place] 107 degreesT [place] 18 degrees Suspect arm leadreversal, interpretation assumes no reversalNormal sinus rhythmRightward axisNonspecific T wave abno rmalityAbnormal ECGWhen compared with ECG of 30-MAR-2023 13:06,QRS axis Shifted rightConfirmed by Luis Lopez ([id number]) on 06/14/2023 9:06:07 [facility] HospitalBASIC METABOLIC [id number] 04:48:18* Test Item Value Reference Range Interpretation [...] GFR is not applicable for dialysis patients Air Pollution Analyst ID - ADMINCBC (HEMOGRAM ONLY)2023-06-14 04:22:50* Test [...] 413) 0 /100 WBC 0-0 Strep pneumoniae tcyqwht8307-00-25 23:34:41* Test Item Value Reference Range Interpretation Comme nts Strep pneumoniae Antigen (test code = 41578-1) Presumptive negative for pneumococcal pneumonia - see [...] the test. Lab Interpretation (test code = 32484-0) Normal [facility] CenterTREP PNEUMONIAE [id number] 23:34:41* Test Item Value Reference Range Interpretation [...] detection limit of the test. Legionella antigen, [id number] 23:29:07* Test Item Value Reference Range Interpretation Comme nts Legionella Urine Antigen (test code = 56273-7) Negative - see comment Negative Negative for L. pneumophila serogroup 1 antigen, suggesting no recent or current infection with this serogroup. Legionellosis cannot be ruled out since other serogroups and species may cause disease. Lab Interpretation (test code = 51658-6) Normal [facility] HospitalLEGIONELLA ANTIGEN, [id number] 23:29:07* Test Item Value Reference Range Interpretation Comme nts L. PNEUMOPHILA SEROGP 1 UR AG (BEAKER) (test code = 1156) Negative - see comment Negative Negative for L. pneumophila serogroup 1 antigen, suggesting no recent or current infection with this serogroup. Legionellosis cannot be ruled out since other serogroups and species may cause disease. Venous doppler arm, [id number] 20:05:32PV LAB - Upper Extremities Veins Demographics Patient Name YUE LAWS Date of Study 06/13/2023 ESTELLE Age 53 Visit Number [id number] Gender Female Accession Number [id number] Date ofBirth 1970 Referring Marianela Burgess Room Number 1055 Physician Cardiology Specialist Lisa RuizInterpreting Jonh Solorio, Physician FellowProcedureType of Study: Veins: Upper [...] in cm/s ; Diameters are [facility] in [facility] CenterVen[facility], rqnb0966-08-06 20:05:32PV LAB - Upper Extremities Veins Demographics Patient Name YUE LAWS Date of Study 06/13/2023 ESTELLE Age 53 Visit Number [id number] Gender Female Accession Number [id number] Date of 1970 Referring Audrastalin Hamilton Dodiecarlottadebra Room Number 1055 Physician Cardiology Specialist Lisa Ruiz Interpreting John Solorio, Physician FellowProcedureType [...] in cm/s ; Diameters are measured in [facility] CenterHIV-1 ANTIGEN WITH HIV-1/2 [id number] 18:36:40* Test Item Value Reference Range Interpretation Comme nts HIV-1 ANTIGEN WITH HIV 1\\T\\2 ANTIBODY (2) (LATOYA) (test code = 2586) Nonreactive Nonreactive MR lumbar spine without & with IV nnrvfcyv6226-13-63 14:53:29MR LUMBAR SPINE WITH & WITHOUT IV [...] x 1.7x 1.7 cm. Dorsal paraspinal musculature E8ukevmlqtdrpwpq. Postcontrast imaging demonstrates mild peripheralenhancement of the dorsal paraspinal fluid collection. Left adrenalgland 2.9 cm nodule.[facility] HospitalMR lumbar spine without & with IV wkqookrw5858-11-15 14:53:29MR LUMBAR SPINE WITH & WITHOUT IV [...] x 1.7x 1.7 cm. Dorsal paraspinal musculature N1mnngcekvcwbumn. Postcontrast imaging demonstrates mild peripheralenhancement of the dorsal paraspinal fluid collection. Left adrenalgland 2.9 cm nodule.[facility] HospitalMR LUMBAR SPINE WITH & WITHOUT IV [id number] 14:53:29[facility] : 1970 Sex: FMR [...] 1.7 x 1.7 cm. Dorsal paraspinal musculature U3afxanpqsebemag. Postcontrast imaging demonstrates mild peripheralenhancement of the [...] Signed By: Ryan Buckley06/13/2023 14:55 CDTWorkstation Name: [id number] KINASE (CK)2023-06-13 11:54:02* Test Item Value Reference Range Interpretation Comme nts CREATINE KINASE TOTAL (BEAKE R) (test code = 380) 43 U/L 29-200 Air Pollution Analyst ID - ADMINCOMPREHENSIVE METABOLIC [id number] 06:48:22* Test Item Value Reference Range Interpretation [...] GFR is not applicable for dialysis patients Air Pollution Analyst ID - ADMINPROTHROMBIN TIME/[id number] 06:40:01* Test Item Value Reference Range Interpretation [...] code = 2801) 1.70 % 0.00-1.00 H [id number] 05:26:09* Test Item Value Reference Range Interpretation Comme nts MAGNESIUM (BEAKER) (test cod e = 627) 2.0 mg/dL 1.6-2.6 Air Pollution Analyst ID - LPTLLHRUQOGJYOA3656-25-63 05:26:09* Test Item Value Reference Range Interpretation Comme nts PHOSPHORUS (BEAKER) (test co de = 604) 3.5 mg/dL 2.3-4.7 Air Pollution Analyst ID - ADMINBASIC METABOLIC [id number] 05:26:08* Test Item Value Reference Range Interpretation [...] GFR is not applicable for dialysis patients Air Pollution Analyst ID - ADMINCBC W/PLT COUNT & AUTO [id number] 05:11:15* Test Item Value Reference Range Interpretation [...] 0.70 % 0.00-1.00 XR spine lumbar 1 [id number] 10:32:20XR SPINE LUMBAR 1 VIEW CLINICAL INDICATION: L3-4 L[facility]INECTOMY [facility] 1 [id number] 10:32:20XR SPINE LUMBAR 1 VIEW CLINICAL INDICATION: L3-4 LAMINECTOMY [facility] 1 VIEW 2023-06-01 10:32:20 [facility] : 1970 Sex: FXR SPINE LUMBAR 1 VIEWCLINICAL INDICATION: L3-4 LAMINECTOMYCOMPARISON: NoneIMPRESSION:A single lateral view of the lumbar spine is obtained intraoperatively.The posterior approach surgical instrument is seen at the L3-L4 level,inferior to the L3 spinous process. Results were communicated to , who concurred with the above findings. Electronically Signed By: Maxim Ramos08/01/2022 10:34 CDTWo rkstation Name: [id number] SPINE LUMBAR 1 [id number] 10:29:18 [facility] : 1970 Sex: FCLINICAL [...] Signed By: Maxim Ramos08/01/2022 10:31 CDTWorkstation Name: [id number] Screen, wegdd5996-87-84 05:32:52* Test Item Value Reference Range Interpretation Comme nts Preg Test, Ur (test code = 2112-1) Negative Negative Lab Interpretation (test cod e = 16963-9) Normal [facility] HospitalPREGNANCY SCREEN, [id number] 05:32:52* Test Item Value Reference Range Interpretation Comme nts TEST URINE (BEAKER ) (test code = 583) Negative Negative BASIC METABOLIC [id number] 23:30:54* Test Item Value Reference Range Interpretation [...] GFR is not applicable for dialysis patients Air Pollution Analyst ID - ADMINPT/SILG2760-00-05 23:15:33* Test Item Value Reference Range Interpretation [...] H CT neck soft tissue without IV ncpllxdl7511-93-89 13:45:22EXAM: CT NECK SOFT TISSUE WITHOUT IV [...] Postoperative changes from anterior cervical discectomy fusionat C3-E6Aewkmqqi Lung Apices: NormalCHI San Vicente HospitalCT neck soft tissue without IV ohjuuveh3378-00-66 13:45:22EXAM: CT NECK SOFT TISSUE WITHOUT IV [...] Postoperative changes from anterior cervical discectomy fusionat C3-L3Vpocwesc Lung Apices: NormalCHI San Vicente HospitalCT NECK SOFT TISSUE WITHOUT IV [id number] 13:45:22 [facility] 1970 [...] Postoperative changes from anterior cervical discectomy fusionat C3-Y3Ardngljm Lung Apices: NormalIMPRESSION:Exam limited by lack of intravenous contrast.1. 1.8 x 2.9 x 1.3 cm ill-defined fluid collection in the leftanterolateral neck soft tissues, suggesting evolving postoperativehemorrhage. Superimposed infection is not ex cluded.2. Retropharyngeal fluid and air measuring up to 0.8 cm in thickness,favored to be present postoperative right frontal edema. Superimposedinfection is not excluded.3. Postoperative changes from ACDF at C3- V5Xciowiykpcjvkw Signed By: Maxim Ramos07/31/2022 13:47 CDTWorkstation Name: [id number] METABOLIC [id number] 08:13:13* Test Item Value Reference Range Interpretation [...] GFR is not applicable for dialysis patients Air Pollution Analyst ID - BVCBC W/PLT COUNT & AUTO [id number] 07:46:31* Test Item Value Reference Range Interpretation [...] 0.00-1.00 XR spine cervical 2 or 3 [id number] 20:24:23TECHNIQUE: Frontal and lateral views of the cervical spine. INDICATION: Postop Standing Films. COMPARISON: None.[facility] HospitalXR spine cervical 2 or 3 psjlm6408-95-56 20:24:23TECHNIQUE: Frontal and lateral views of the cervical spine. INDICATION: Postop Standing Films. COMPARISON: None.[facility] HospitalXR SPINE CERVICAL 2 OR 3 [id number] 20:24:23 [facility] : 1970 Sex: FTECHNIQUE: [...] Signed By: Zachariah Garcia05/28/2023 20:26 CDTWorkstation Name: [id number] fluoro non-specific up to 1 hour 2023-05-28 11:45:16This is a non-reportable study with no Radiologist dictation. Please refer to your PACS to review images, or Doc Flowsheets for documentation on studies without images.[facility] HospitalFL fluoro non-specific up to 1 [id number] 11:45:16This is a non-reportable study with no Radiologist dictation. Please refer to your PACS to review images, or Doc Flowsheets for documentation on studies without images.[facility] HospitalFL FLUORO NON-SPECIFIC UP TO 1 [id number] 11:45:16 [facility] : 1970 Sex: FThis is a non- reportable study with no Radiologist dictation. Please refer to your PACS to review images, or Doc Flowsheets for documentation on studies without images.FL FLUORO NON-SPECIFIC UP TO 1 [id number] 10:13:02 [facility] : 1970 Sex: FTECHNIQUE: 1 lateral fluoroscopic image of the cervical spine forlocalization.Fluoroscopic time: 3second(s).FINDINGS:The surgical pointer is at C3-C4.The findings were discussed with Dr. Garcia in theOR who concurred withthe findings.IMPRESSION:Intraoperative localization plain film as described abo ve.Electronically Signed By: Derik Reyez05/28/2023 10:15 CDTWorkstation Name: [id number], QUANTITATIVE, [id number] 08:21:03* Test Item Value Reference Range Interpretation Comme nts GONADOTROPIN, CHORIONIC (HCG ) QUANT (BEAKER) (test code = 649) < mIU/mL 0-10 Non- Females: <10 mIU/mL Females: Gestation Age Reference Range(mIU/mL) 0.2-1 Week 5-50 1-2 Weeks 50-500 2-3 Weeks 100-5,000 3-4 Weeks 500-10,000 4-5 Weeks 1,000-50,000 5-6 Weeks 10,000-100,000 6-8 Weeks 15,000- 200,000 2-3 Months 10,000-100,000 Air Pollution Analyst ID - ADMINCULTURE, [id number] 09:28:30SPECIMEN NUMBER: [id number] CULTURE, URINE SPECIMEN NUMBER: [id number] SPECIMEN COMMENT: URINE SOURCE: URINE REPORT STATUS: FINAL FINAL REPORT: 05/15/2023 >100,000 CFU/ML UROGENITAL REBEL PRESENT NOCOMMON PATHOGENS UNLESS OTHERWISE INDICATED, ALL TESTING PERFORMED AT [facility] [address] [place] [address] ASSOCIATE PROFESSOR COMPUTER SCIENCE: JANNY STEINER M.D. CLIA NUMBER [id number] [place] [id number], [id number] 12:02:50SPECIMEN NUMBER: [id number] CULTURE, URINE SPECIMEN NUMBER: [id number] SOURCE: URINE REPORT STATUS: FINAL FINAL REPORT: 05/13/2023 NO SPECIMEN RECEIVED FOR TESTING. CHARGES DELETED.BASIC METABOLIC [id number] 04:48:43* Test Item Value Reference Range Interpretation Comme nts GLUCOSE (test code = 2217) 117 MG/DL 70-99 H BUN (test code = 2208) 20 MG/DL 6-20 CREATININE (test code = 2214) 0.83 MG/DL 0.60-1.30 eGFR (2020 CKD-EPI) (test co de = 23351) 85 ML/MIN/1.73 >60 SODIUM (test code = [...] 12.7 SECONDS 12.5-14.7 INR (test code = 97345) 0.9 SEE BELOW CURRENT RECOMMENDATIONS ARE FOR AN INR OF 2.0-3.0 FOR ALL PATIENTS ON VITAMIN K ANTAGONISTS, EXCEPT THOSE WITH PROSTHETIC HEART VALVES, FOR WHOM INR OF 2.5-3.5 IS RECOMMENDED. UNLESS OTHERWISE INDICATED, ALL TESTING PERFORMED AT [facility] [address] [place] [address] ASSOCIATE PROFESSOR COMPUTER SCIENCE: JANNY STEINER M.D. CLIA NUMBER [id number] [facility] [place]. [id number] CBC W/AUTO DIFF WITH [id number] 01:54:17* Test Item Value Reference Range Interpretation [...] H ABS NUCLEATED RBCS (test code = 48344) 0.00 K/UL 0.00-0.11 ECG 12 [id number] 14:02:48Ventricular Rate 102 BPMAtrial Rate 102 BPMP-R Interval 146 msQRS Duration 90 msQ-T Interval 372 msQTC Calculation(Bazett) 484 msP Enon 11 degreesR Enon -53 degreesT Enon 29 degrees Sinus tachycardiaPossible Left atrial enlargementLeft axis deviationPoor R wave progression Cannot rule out Anterior infarct , age undetermined vs lead misplacementNonspecific T wave abnormalityProlonged QTAbnormal ECGNo previous ECGs availableConfirmed by David GARCIA BASANT ([id number]) on 04/06/2023 2:02:46 [facility] & [id number] 13:11:39Transthoracic Echocardiography Report (TTE) Demographics Patient Name YUE LAWS Date of Study 03/31/2023 ESTELLE Gender Female Visit Number [id number] Race Room Number 2227 Number Date of 1970 Referring Physician Mariah Aldridge MD Age 53year(s) Cardiology Specialist Limaedinjuan jose Francois [employer] Josefina Corbett, [facility] Interpreting Physician Melody MDProcedure Type of [...] Velocity: 0.74 m/s Peak Gradient: 2.22 mmHgCHI San Vicente HospitalECHO W CONTRAST & [id number] 13:11:39Transthoracic Echocardiography Report (TTE) Demographics Patient Name YUE LAWS Date of Study 03/31/2023 ESTELLE Gender Female Visit Number [id number] Race Room Number 2227 Number Date of 1970 Referring Physician Mariah Aldridge MD Age 53 year(s) Cardiology Specialist Wilmer Francois [employer] Of [employer] Josefina Corbett, [facility] Interpreting Physician Melody MDProcedure Type of [...] Velocity: 0.74 m/s Peak Gradient: 2.22 mmHgCHI San Vicente HospitalXR chest 1 view portable / [id number] 15:39:07TECHNIQUE: Frontal view of the chest. INDICATION: CHf. COMPARISON: None. FINDINGS: LINES/TUBES: None. HEART AND MEDIASTINUM: Cardiomediastinal contour is within normallimits. LUNGS: The lungs are well inflated and clear. No consolidation orpulmonary edema. PLEURA: No pneumothorax. No significant pleural effusion. SOFT TISSUES AND BONES: Cervical spinal fixation hardware is noted.[facility] HospitalXR chest 1 view portable / [id number] 15:39:07TECHNIQUE: Frontal view of the chest. INDICATION: CHf. COMPARISON: None. FINDINGS: LINES/TUBES: None. HEART AND MEDIASTINUM: Cardiomediastinal contour is within normallimits. LUNGS: The lungs are well inflated and clear. No consolidation orpulmonary edema. PLEURA: No pneumothorax. No significant pleural effusion. SOFT TISSUES AND BONES: Cervical spinal fixation hardware is noted.[facility] HospitalXR CHEST 1 VIEW PORTABLE / [id number] 15:39:07 [facility] 1970 Sex: FTECHNIQUE: Frontal view of the chest.INDICATION: CHf.COMPARISON: None.FINDINGS:LINES/TUBES: None.HE ART AND MEDIASTINUM: Cardiomediastinal contour is within normallimits. LUNGS: The lungs are well inflated and clear. No consolidation orpulmonary edema.PLEURA: No pneumothorax. No significant pleuraleffusion.SOFT TISSUES AND BONES: Cervical spinal fixation hardware is noted.IMPRESSION:No acute card iopulmonary process.Electronically Signed By: Jose Carlos Lebron04/01/2023 15:41 CDTWorkstation Name: [id number] NATRIURETIC FACTOR (BNP)2023-04-01 14:15:07* Test Item Value Reference Range Interpretation Comme nts B-TYPE NATRIURETIC PEPTIDE ( BEAKER) (test code = 700) 192 pg/mL 0-100 H Air Pollution Analyst ID - ADMINMR spine cervical without IV [id number] 11:30:35MRI cervical spine without contrast CLINICAL HISTORY: [...] and paraspinal soft tissues are within normal limits.[facility] HospitalMR CERVICAL SPINE WITHOUT IV [id number] 11:30:35 [facility] : 1970 Sex: FMRI [...] Signed By: Maxim Sultana03/31/2023 11:32 CDTWorkstation Name: [id number] METABOLIC [id number] 04:43:14* Test Item Value Reference Range Interpretation [...] GFR is not applicable for dialysis patients Air Pollution Analyst GEOVANNA [facility]A [facility] (HEMOGRAM ONLY)2023-03-31 04:20:07* Test Item Value [...] 0 /100 WBC 0-0 Arterial doppler legs mexdwstqe2412-48-83 17:44:07PV LAB - Lower Extremity Arterial Duplex Demographics Patient Name YUE LAWS Date of Study ESTELLE Age 53 Visit Number [id number] Gender Female Accession Number [id number] Date of 1970 Referring Mariah Aldridge, Room Number 2227 Physician Cardiology Specialist Yovana Akins Interpreting John Solorio, Physician FellowProcedureType [...] + + + + + + !Prox FUNERAL DIRECTOR/EMBALMER/OWNER ! !32 ! !Biphasic ! !60.9 ! !Triphasic ! + + + + + + + + + + !Mid FUNERAL DIRECTOR/EMBALMER/OWNER ! !25.9 ! !Biphasic ! !59.7 ! !Triphasic ! + + + + + + + + + + !Dist FUNERAL DIRECTOR/EMBALMER/OWNER ! !33.2 ! !Biphasic ! !37.4 ! [...] + + + + + + +[facility] HospitalArterial doppler legs wohqikixp5634-85-24 17:44:07PV LAB - Lower Extremity Arterial Duplex Demographics Patient Name YUE LAWS Date of Study 03/30/2023 ESTELLE Age 53 Visit Number [id number] Gender Female Accession Number [id number] Date of 1970 Referring Mariah Aldridge, Room Number 2227 Physician Cardiology Specialist Yovana Akins Interpreting John Solorio, Physician FellowProcedureType [...] + + + + + + !Prox FUNERAL DIRECTOR/EMBALMER/OWNER ! !32 ! !Biphasic ! !60.9 ! !Triphasic ! + + + + + + + + + + !Mid FUNERAL DIRECTOR/EMBALMER/OWNER ! !25.9 ! !Biphasic ! !59.7 ! !Triphasic ! + + + + + + + + + + !Dist FUNERAL DIRECTOR/EMBALMER/OWNER ! !33.2 ! !Biphasic ! !37.4 ! [...] + + + + + + +[facility] HospitalABI's Only(Ankle/Brachial Index)2023-03-30 17:13:47PV LAB - Lower Extremity Arterial Procedure Demographics Patient Name YUE LAWS Date of Study 03/30/2023 ESTELLE Age 53 Visit Number [id number] Gender Female Accession Number [id number] Date of 1970 Referring Mariah Aldridge, Room Number 2227 Physician Cardiology Specialist Yovana Akins Interpreting John Solorio, Physician FellowProcedureType [...] in cm/s ; Diameters are measured in [facility](Ankle/Brachial Index)2023-03-30 17:13:47PV LAB - Lower Extremity Arterial Procedure Demographics Patient Name YUE LAWS Date of Study 03/30/2023 ESTELLE Age 53 Visit Number [id number] Gender Female Accession Number [id number] Date of 1970 Referring Mariah Aldridge, Room Number 2227 Physician Cardiology Specialist Yovana Tashi Interpreting John Solorio, Physician FellowProcedureType of Study: [...] in cm/s ; Diameters are measured in [facility] thoracic spine without IV dqhijrge1548-39-53 12:50:50MR THORACIC SPINE WITHOUT IV CONTRAST INDICATION: [...] abnormality. T10-11 moderate right neural foraminal stenosis vcyG97-80 moderate bilateral foraminal stenosis due to facet hypertrophyand ligamentum flavum redundancy. Thoracic vertebrae maintain normal height. Mild multilevel degenerativedisc changes. No evidence of acute osseous fracture or traumaticmalalignment. No paraspinal mass. Conus medullaris terminates at L1. Redundant cauda equina partiallyimaged and further reported on MRI lumbar spine.[facility] HospitalMR THORACIC SPINE WITHOUT IV [id number] 12:50:50 [facility] : 1970 Sex: FMR [...] abnormality. T10-11 moderate right neural foraminal stenosis cboO90-33 moderate bilateral foraminal stenosis due to facet [...] Signed By: Ryan Buckley03/30/2023 12:52 CDTWorkstation Name: [id number] spine lumbar without IV ftuxxefa4728-59-21 12:33:57MR LUMBAR SPINE WITHOUT IV CONTRAST INDICATION: Unlisted Reason for ExamConcern for cord compression COMPARISON: None TECHNIQUE: Multiplanar, multisequence MR images of the lumbar spinewithout contrast. FINDINGS: For the purposes of this dictation, the 5 lowermost mamdqd-ygajydwkitxop-czrg vertebral bodies are labeled L1-L5.Alignment of the [...] with mild to moderatebilateral neural foraminal stenosisCHI San Vicente HospitalMR LUMBAR SPINE WITHOUT IV [id number] 12:33:57 [facility] 1970 Sex: FMR LUMBAR SPINE WITHOUT IV CONTRASTINDICATION: Unlisted Reason for ExamConcern for cord compressionCOMPARISON: NoneTECHNIQUE: Multiplanar, multisequence MR images of the lumbar spinewithout contrast. FINDINGS: For the purposes of this dictation, the 5 lowermost rjszgx-ccozlpvxwledu-efbr vertebralbodies are labeled L1- L5.Alignment of the [...] flavum buckling versus synovial cyst at the ojzxmQ52-I87 level (series 301 image eight). MRI thoracic spine can beconsidered for further evaluation.7. Mild clumping of the cauda equina nerve roots, which is nonspecificbut may represent arachnoiditis. Postcontrast imaging can be consideredfor further evaluation.Electronically Signed By: Maxim Sultana03/30/2023 12:36 CDTWorkstation Name: [id number] 11:45:01* Test Item Value Reference Range Interpretation [...] 5.7- 6.4% indicates increased risk for diabetes (prediabetes)."Air Pollution Analyst ID - ADMEEG AWAKE AND UPTNUC9769-37-89 09:57:53Steph Martinez MD 03/30/2023 9:59 AMELECTROENCEPHALOGRAM FOR [facility] Type: Inpatient, outpatient, EMUDATE(s) OF EE03/30/23DATE OF REPORT: 03/30/23MRN: [id number] of : 1970EE-1454Start time: 08:36Stop time: 09:23ICD-10: R56.9 CPT Code: 95867 (awake and asleep)HISTORY: 53 y/o female with [...] EEG recordings. Steph Elias MD, MPHNeurophysiology/Epilepsy AttendingCHI San [facility] Hospital EEG AWAKE AND [id number] 09:57:53Steph Martinez MD 03/30/2023 9:59 AMELECTROENCEPHALOGRAM FOR [facility] EEG Type: Inpatient, outpatient, EMUDATE(s) OF EE03/30/23DATE OF REPORT: 03/30/23MRN: [id number] of : 1970EE-1454Start time: 08:36Stop time: 09:23ICD-10: R56.9 CPT Code: 31077 (awake and asleep)HISTORY: 53 y/o female with [...] EEG recordings. Steph Elias MD, MPHNeurophysiology/Epilepsy AttendingCHI San [facility] Hospital EEG AWAKE AND [id number] 09:57:53Steph Martinez MD 03/30/2023 9:59 AMELECTROENCEPHALOGRAM FOR [facility] EEG Type: Inpatient, outpatient, EMUDATE(s) OF EE03/30/23DATE OF REPORT: 03/30/23MRN: [id number] of : 1970EE-1454Start time: 08:36Stop time: 09:23ICD-10: R56.9 CPT Code: 46071 (awake and asleep) HISTORY: 53 y/o female [...] additional EEG recordings. Steph Elias MD, MPHNeurophysiology/Epilepsy AttendingJohn C. Fremont Hospital EEG AWAKE AND [id number] 09:57:53Steph Martinez MD 03/30/2023 9:[address] EEG Type: Inpatient, outpatient, EMUDATE(s) OF EE03/30/23DATE OF REPORT: 03/30/23MRN: [id number] of : 1970EE-1454Start time: 08:36Stop time: :23ICD-10: R56.9 CPT Code: 25858 (awake and asleep)HISTORY: 53 y/o female with [...] EEG recordings. Steph Elias MD, MPHNeurophysiology/Epilepsy AttendingCHI [facility] Hospital VALPROIC ACID LEVEL, [id number] 09:42:31* Test Item Value Reference Range Interpretation Comme nts VALPROIC ACID TOTAL (BEAKER) (test code = 924) 76 ug/mL 50-100 Therapeutic range for some clinical conditions may be >100 ug/mLUrinalysis w/Microscopic + Reflex to Zwwbaze4326-44-57 08:43:51* Test Item Value Reference Range Interpretation Comme nts Color, UA (test code = 5778-6) Yellow Clarity, UA (test code = 5767-9) Clear Specific [place], UA (test code = 5811-5) 1.033 1.001-1.035 pH, UA (test code = 5803-2) 6.0 5.0-8.0 Protein, UA (test code = 43523-5) 30 mg/dL Negative A Glucose, UA (test code = 365) Negative Negative Ketones, UA (test code = 2514-8) Negative Negative Bilirubin, UA (test code = 52282-2) Negative Negative Blood, UA (test code = 22447-9) Small Negative A Nitrite, UA (test code = 5802-4) Negative Negative Leukocytes, UA (test code = 5799-2) Negative Negative Urobilinogen, UA (test code = 84781-1) 0.2 0.2-1.0 RBC, UA (test code = 36704-8) 51 See_Comment [Automated message] The system which [...] Occasional Squam Epithel, UA (test code = 75383-5) See_Comment [Automated message] The system which generated this result transmitted reference range: /HPF. The reference range was not used to interpret this result as normal/abnormal. Specimen Source (test code = 2795) LYNDSAY (test code = LYNDSAY) Air Pollution Analyst ID - [auto]Air Pollution Analyst ID - tech Lab Interpretation (test code = 86280-7) Abnormal [facility] HospitalURINALYSIS W/ REFLEX URINE [id number] 08:43:51 * Test Item Value Reference Range [...] < /HPF SOURCE(BEAKER) (test code = 2795) Air Pollution Analyst ID - [auto]Air Pollution Analyst ID - techCOMPREHENSIVE METABOLIC NGUDD0945-48-79 04:37:29* Test Item Value Reference Range Interpretation [...] GFR is not applicable for dialysis patients Air Pollution Analyst ID - MATT BPT/SKTS5865-02-73 04:30:17* Test Item Value Reference Range Interpretation Comme nts PROTIME (BEAKER) (test code = 759) 13.8 seconds 11.9-14.2 INR (BEAKER) (test code = 370) 1.13 See_Comment [Automated Noxilizer] The system which generated this result transmitted reference range: <=5.90. The reference range was not used to interpret this result as normal/abnormal. PARTIAL THROMBOPLASTIN TIME (BEAKER) (test code = 171) 27.4 seconds 22.5-36.0 RECOMMENDED COUMADIN/WARFARIN INR THERAPY [...] code = 413) 0 /100 WBC 0-0 ENJ-[id number] 00:00:00Ordered by an unspecified provider.[facility]rem[facility] HospitalMAGNESIUM2023-05-25 17:14:06* Test Item Value Reference Range Interpretation Comme nts MAGNESIUM (test code = 9666635973) 1.9 mg/dL 1.7-2.4 Lab Interpretation (test cod e = 40423-0) Normal [facility]hamCOMP[facility] METABOLIC PANEL (02035)2022-12-11 15:16:25* Test Item Value Reference Range Interpretation Comme nts NA (test code = 0728402435) 139 mmol/L 135-145 K (test code = 6970647226) 3.5 mmol/L 3.5-5.0 CL (test code = 8533593392) 107 mmol/L 98-108 CO2 TOTAL (test code = 9241881984) 24 mmol/L 23-31 AGAP (test code = 3576377718) 8 2-16 BUN (test code = 4102039956) 9 mg/dL 7-23 GLUCOSE (test code = 2502554788) 129 mg/dL 70-110 H CREATININE (test code = 8827395110) 0.68 mg/dL 0.50-1.04 TOTAL BILI (test code = 7549091507) 0.5 mg/dL 0.1-1.1 CALCIUM (test code = 6182127672) 8.9 mg/dL 8.6-10.6 T PROTEIN (test code = 0881104340) 6.3 g/dL 6.3-8.2 ALBUMIN (test code = 4290462374) 3.8 g/dL 3.5-5.0 ALK PHOS (test code = 1951308891) 87 U/L 34-122 ALTv (test code = 1742-6) 24 U/L 5-35 AST(SGOT) (test code = 6345967311) 21 U/L 13-40 eGFR (test code = 5168599507) 91.6 mL/min/1.73m2 LYNDSAY (test code = LYNDSAY) [...] imaging tests). Lab Interpretation (test code = 76062-3) Abnormal [facility]hamTROPONIN [id number] 15:10:45* Test Item Value Reference Range Interpretation Comme nts TROPONIN I (test code = 4813459301) 0.015 ng/mL <=0.034 LYNDSAY (test code = [...] of biotin. Lab Interpretation (test code = 79960-3) Normal [facility]hamN-TERMINAL XLH-[id number] 15:07:48* Test Item Value Reference Range Interpretation Comme nts NT-proBNP (test code = 7911789836) 1460 pg/mL <=125 H LYNDSAY (test code = LYNDSAY) Biotin has been reported to cause a negative bias, interpret results relative to patient's use of biotin. Lab Interpretation (test code = 02237-2) Abnormal [facility]hamD-LGXFN9036-57-22 14:45:24* Test Item Value Reference Range Interpretation Comments D-DIMER (test code = 8464264285) 0.99 See_Comment H [Automated message] The system [...] a diagnosis. Lab Interpretation (test code = 45201-0) Abnormal [facility] WITH [id number] 14:14:48* Test Item Value Reference Range Interpretation Comme nts WBC (test code = 6690-2) 7.86 See_Comment [Automated STYLHUNTa [employer]] The system which generated this result transmitted reference range: 4.30 - 11.10 10*3/?L. The reference range was not used to interpret this result as normal/abnormal. RBC (test code = 789-8) 5.13 See_Comment [Automated STYLHUNTa FD[employer]] The system which generated this result [...] g/dL 31.6-35.1 L RDW-SD (test code = 87954-3) 47.8 fL 39.0-49.9 RDW-CV (test code = 788-0) 16.9 % 12.0-15.5 H PLT (test code = 777-3) 507 See_Comment H [Automated STYLHUNTa [employer]] The system which generated this result transmitted reference range: 166 - 358 10*3/?L. The reference range was not used to interpret this result as normal/abnormal. MPV (test code = 37273-7) 8.2 fL 9.5-12.9 L NRBC/100 WBC (test code = 4364844334) 0.0 See_Comment [Automated me ssage] The system which generated this result transmitted reference range: 0.0 - 10.0 /100 WBCs. The reference range was not used to interpret this result as normal/abnormal. NRBC x10^3 (test code = 5997805512) See_Comment [Automated messa ge] The system which generated this result transmitted reference range: 10*3/?L. The reference range was not used to interpret this result as normal/abnormal. GRAN MAT (NEUT) % (test code = 770-8) 64.5 % IMM GRAN % (test code = 9620051157) 0.30 % LYMPH % (test code = 736-9) 25.6 % MONO % (test code = 5905-5) 7.5 % EOS % (test code = 713-8) 1.0 % BASO % (test code = 706-2) 1.1 % GRAN MAT x10^3(ANC) (test code = 4113986661) 5.07 10*3/uL 1.88-7.09 IMM GRAN x10^3 (test code = 6469359166) 0.00-0.06 LYMPH x10^3 (test code = 731-0) 2.01 10*3/uL 1.32-3.29 MONO x10^3 (test code = 742-7) 0.59 10*3/uL 0.33-0.92 EOS x10^3 (test code = 711-2) 0.08 10*3/uL 0.03-0.39 BASO x10^3 (test code = 704-7) 0.09 10*3/uL 0.01-0.07 H Lab Interpretation (test code = 34778-8) Abnormal [facility]hamRPR2023-01-17 13:17:22* Test Item Value Reference Range Interpretation Comme nts RPR SCREEN (Ethical Electric) (test co de = 420) Nonreactive Nonreactive HEMOGLOBIN [id number] 10:39:49* Test Item Value Reference Range Interpretation Comme nts HEMOGLOBIN A1C ELECTROPHORESIS (TrabajoPanelAKER) (test code = 3811) 5.8 % See_Comment H [Automated me ssage] The system which generated this result transmitted reference range: <=5.6%. The reference range was not used to interpret this result as normal/abnormal. "The A1c is measured using a [facility]-certified method. HbA1c value equal to or greater than 6.5% as the diagnosis cutoff for diabetes. An HbA1c value of 5.7- 6.4% indicates increased risk for diabetes (prediabetes)."Air Pollution Analyst ID - ADM VITAMIN [id number] 22:48:27* Test Item Value Reference Range Interpretation Comme nts VITAMIN B12 (BEAKER) (test c ode = 774) 227 pg/mL 213-816 Air Pollution Analyst ID - MARCOTSH/FREE T4 IF XCLAATHHN9879-05-21 22:08:28* Test Item Value Reference Range Interpretation Comme nts THYROID STIMULATING HORMONE (BEAKER) (test code = 772) 3.309 uIU/mL 0.350-4.940 Air Pollution Analyst ID - LEONHIV-1 ANTIGEN WITH HIV-1/2 BCNXRMPY6783-41-95 22:08:28* Test Item Value Reference Range Interpretation Comme nts HIV-1 ANTIGEN WITH HIV 1\\T\\2 ANTIBODY (2) (BEAKER) (test code = 2586) Nonreactive Nonreactive Air Pollution Analyst ID - LEONC-REACTIVE HYCEORY8622-14-16 21:49:44* Test Item Value Reference Range Interpretation Comme nts C-REACTIVE PROTEIN (BEAKER) (test code = 676) 0.35 mg/dL 0.00-0.50 Air Pollution Analyst ID - LEONCOMPREHENSIVE METABOLIC JJTCN0245-56-87 21:49:43* Test Item Value Reference Range Interpretation [...] GFR is not applicable for dialysis patients Air Pollution Analyst ID - JSLIPID FIBST3620-95-99 21:49:43* Test Item Value Reference Range Interpretation [...] Borderline 130-159 High 160-189 Very High >=190 Air Pollution Analyst ID - JSCBC W/PLT COUNT & AUTO CHHTANTDGVOO1275-88-92 21:34:03* Test Item Value Reference Range Interpretation [...] Interpretation Comme nts Height (test code = 3416413931) in Weight (test code = 0953946105) lbs Systolic BP (test code = 1931915382) mmHg Diastolic BP (test code = 9428384991) mmHg Heart Rate (test code = 1623540411) bpm BSA (test code = 3992416206) 2.00 m2 Ao root diam (test code = 9679912898) 3.20 cm Aortic root (test code = 7746951032) 3.2 cm Ao root annulus (test code = 4414693904) 3.2 cm LVOT diameter (test code = 2047647857) 1.99 cm LVOT area (test code = 9730099092) 3.10 cm2 LVIDD (test code = 8586097912) 5.10 cm Left Ventricular End Diastolic Volume by Teichholz Method (test code = 7724925) 123.0 mL IVS (test code = 0255388187) 1.34 cm Interventricular Septum Diastolic Thickness by 2D (test code = 7106552) 1.34 cm LVPWD (test code = 3803373374) 1.34 cm PW (test code = 9353265299) 1.34 cm 0.6-1.1 EF(Teich) (test code = 7259723352) 41.80 % LVIDS (test code = 1645212499) 4.00 cm Left Ventricular End Systolic Volume by Teichholz Method (test code = 3916063) 71.5 mL FS (test code = 6915867119) 21 % EF - 2D (test code = 89432981) 41.80 % LA size (test code = 7160809534) 4.6 cm Pulmonic Regurgitant End Max Velocity (test code = 7068417251) 119.4 cm/s LAV(MOD-sp4) (test code = 6658100375) 95.00 mL E wave decelartion time (test code = 7101888063) 0.15 s MV stenosis pressure 1/2 time (test code = 6906669762) 45.6 ms MV Peak A Evette (test code = 2490197541) 123.8 cm/s MV Peak E Evette (test code = 4040019722) 109.7 cm/s E/A ratio (test code = 9987720105) ratio MR max PG (test code = 9915302595) 87.20 mm[Hg] MR max evette (test code = 7270468566) 466.90 cm/s Mr max evette (test code = 3197161668) 466.9 m/s MV Prop V (test code = 8174240678) 51.00 cm/s MV E/e' septal (test code = 5014714011) 8.1 cm/s Tapse (test code = 0410244892) 2.21 cm LVOT stroke volume (test code = 2758832474) 49.80 cm3 LVOT peak evette (test code = 4821414420) 89.1 cm/s LVOT mn grad (test code = 8048274075) mmHg AV LVOT peak gradient (test code = 9635588672) mmHg LVOT peak VTI (test code = 5288162216) 16.0 cm LV V1 mean (test code = 3486238631) 64.30 cm/s Aortic valve mean velocity (test code = 0867833176) 133.8 cm/s Ao peak evette (test code = 9027734558) 175.3 cm/s Ao VTI (test code = 4289328024) 32.2 cm AV area by cont VTI (test code = 4319707468) 1.6 cm2 AV area peak evette (test code = 1475339988) 1.6 cm2 Ao max PG (test code = 8264642447) 12.30 mm[Hg] AV peak gradient (test code = 0314815346) mmHg AV valve area (test code = 1495060219) 1.55 cm2 AV mean gradient (test code = 4633917731) mmHg AV regurgitation pressure 1/2 time (test code = 8116384863) 358.5 ms AI dec slope (test code = 9156862391) 364.20 cm/s2 AI max evette (test code = 3757908321) 445.80 cm/s AI max PG (test code = 1859894609) 79.50 mm[Hg] Radiology Study observation (narrative) (test code = 95968-3) LYNDSAY (test code = LYNDSAY) ?Left?Ventricle: Left [...] [facility] 10:43:32* Test Item Value Reference Range Interpretation Comme [facility] POCT GLU (test code = 5429693467) 148 mg/dL 70-110 H Lab Interpretation (test cod e = 16454-2) Abnormal [facility]hamACTIV[facility] PARTIAL THRMPLAS [id number] 18:39:45* Test Item Value Reference Range Interpretation Comme [facility] APTT Patient (test code = 3173-2) See_Comment [Automated message] The system which generated this result transmitted reference range: 23 - 38 Seconds. The reference range was not used to interpret this result as normal/abnormal. LYNDSAY (test code = LYNDSAY) The [facility] patient population mean normal value for aPTT is 30 seconds. Lab Interpretation (test code = 46336-6) Normal [facility]hamPROTHROMBIN TIME / [id number] 18:37:42* Test Item Value Reference Range Interpretation Comme nts PROTIME PATIENT (test code = 5964-2) See_Comment [Automated STYLHUNTa ge] The system which generated this result transmitted reference range: 12.0 - 14.7 Seconds. The reference range was not used to interpret this result as normal/abnormal. INR (test code = 6301-6) Normal INR <1.1; Warfarin Therapeutic range 2.0 to 3.0 or 2.5 to 3.5, depending upon the indications. Lab Interpretation (test code = 57836-5) Normal [facility]hamTROPONIN [id number] 18:32:01* Test Item Value Reference Range Interpretation Comments TROPONIN I (test code = 6328669416) 0.019 ng/mL See_Comment [Automated message] The system [...] of biotin. Lab Interpretation (test code = 57716-9) Normal [facility]hamN-TERMINAL [id number] 18:29:01* Test Item Value Reference Range Interpretation Comme [facility] NT-proBNP (test code = 3205187357) 2770 pg/mL See_Comment H [Automated message] The system which generated this result transmitted reference range: <=125. The reference range was not used to interpret this result as normal/abnormal. LYNDSAY (test code = LYNDSAY) Biotin has been reported to cause a negative bias, interpret results relative to patient's use of biotin. Lab Interpretation (test code = 10927-1) Abnormal [facility]. METABOLIC PANEL (91753)2022-07-31 18:21:42* Test Item Value Reference Range Interpretation Comme nts NA (test code = 9719324691) 136 mmol/L 135-145 K (test code = 1036388575) 4.6 mmol/L 3.5-5.0 CL (test code = 8598451049) 104 mmol/L 98-108 CO2 TOTAL (test code = 4219356371) 26 mmol/L 23-31 AGAP (test code = 0895290492) 2-16 BUN (test code = 7551348491) 9 mg/dL 7-23 GLUCOSE (test code = 6380459345) 97 mg/dL 70-110 CREATININE (test code = 3455958885) 0.64 mg/dL 0.50-1.04 TOTAL BILI (test code = 4216031897) 0.5 mg/dL 0.1-1.1 CALCIUM (test code = 8375504407) 8.2 mg/dL 8.6-10.6 L T PROTEIN (test code = 0084912633) 6.5 g/dL 6.3-8.2 ALBUMIN (test code = 4092395244) 3.9 g/dL 3.5-5.0 ALK PHOS (test code = 7280995047) 93 U/L 34-122 ALTv (test code = 1742-6) 18 U/L 5-35 AST(SGOT) (test code = 1283911456) 19 U/L 13-40 eGFR (test code = 8328215059) mL/min/1.73m2 LYNDSAY (test code = LYNDSAY) Association [...] imaging tests). Lab Interpretation (test code = 42168-1) [facility]normal [facility]IP[facility]2023-01-12 18:21:01* Test Item Value Reference Range Interpretation Comme nts LIPASE (test code = 5678994287) 54 U/L 0-220 Lab Interpretation (test cod e = 98809-7) Normal [facility] WITH [id number] 18:07:00* Test Item Value Reference Range Interpretation Comme nts WBC (test code = 6690-2) See_Comment [Automated Noxilizer] The system which generated this result transmitted reference range: 4.30 - 11.10 10*3/?L. The reference range was not used to interpret this result as normal/abnormal. RBC (test code = 789-8) See_Comment [Automated Noxilizer] The system which generated this result transmitted [...] g/dL 31.6-35.1 L RDW-SD (test code = 20210-4) 53.1 fL 39.0-49.9 H RDW-CV (test code = 788-0) 17.0 % 12.0-15.5 H PLT (test code = 777-3) See_Comment H [Automated messa ge] The system which generated this result transmitted reference range: 166 - 358 10*3/?L. The reference range was not used to interpret this result as normal/abnormal. MPV (test code = 64391-1) 8.2 fL 9.5-12.9 L NRBC/100 WBC (test code = 5358691103) See_Comment [Automated Color Prom[employer] ssage] The system which generated this result transmitted reference range: 0.0 - 10.0 /100 WBCs. The reference range was not used to interpret this result as normal/abnormal. NRBC x10^3 (test code = 7200249941) See_Comment [Automated messa ge] The system which generated this result transmitted reference range: 10*3/?L. The reference range was not used to interpret this result as normal/abnormal. GRAN MAT (NEUT) % (test code = 770-8) 64.0 % IMM GRAN % (test code = 2021533891) 0.40 % LYMPH % (test code = 736-9) 27.3 % MONO % (test code = 5905-5) 6.5 % EOS % (test code = 713-8) 1.1 % BASO % (test code = 706-2) 0.7 % GRAN MAT x10^3(ANC) (test code = 1739014909) 5.46 10*3/uL 1.88-7.09 IMM GRAN x10^3 (test code = 1476161763) 0.03 10*3/uL 0.00-0.06 LYMPH x10^3 (test code = 731-0) 2.32 10*3/uL 1.32-3.29 MONO x10^3 (test code = 742-7) 0.55 10*3/uL 0.33-0.92 EOS x10^3 (test code = 711-2) 0.09 10*3/uL 0.03-0.39 BASO x10^3 (test code = 704-7) 0.06 10*3/uL 0.01-0.07 Lab Interpretation (test code = 52443-7) Abnormal [facility] METABOLIC PANEL (NA, K, CL, CO2, GLUCOSE, BUN, CREATININE, CA)2022-05-08 06:37:01* Test Item Value Reference Range Interpretation Comme nts NA (test code = 5899349664) 137 mmol/L 135-145 K (test code = 4959204899) 3.8 mmol/L 3.5-5 CL (test code = 3321080526) 103 mmol/L 98-108 CO2 TOTAL (test code = 3683591966) 24 mmol/L 23-31 AGAP (test code = 3996045178) 2-16 BUN (test code = 5688251980) 13 mg/dL 7-23 GLUCOSE (test code = 8172398822) 90 mg/dL 70-110 CREATININE (test code = 7544213221) 0.69 mg/dL 0.5-1.04 CALCIUM (test code = 5899489560) 8.5 mg/dL 8.6-10.6 L eGFR (test code = 7299501996) mL/min/1.73m2 LYNDSAY (test code = LYNDSAY) Association [...] imaging tests). Lab Interpretation (test code = 05168-5) Abnormal [facility]hamMAGNESIUM2022-10-20 06:37:01* Test Item Value Reference Range Interpretation Comme nts MAGNESIUM (test code = 7865552618) 2.1 mg/dL 1.7-2.4 Lab Interpretation (test cod e = 11198-2) Normal [facility]hamPHOSPHORUS2022-10-20 06:37:01* Test Item Value Reference Range Interpretation Comme nts PHOSPHORUS (test code = 3708911409) 4.7 mg/dL 2.5-5 Lab Interpretation (test cod e = 74452-5) Normal [facility]hamCB WITH [id number] 06:11:54* Test Item Value Reference Range Interpretation Comme nts WBC (test code = 6690-2) See_Comment [Automated Noxilizer] The system which generated this result transmitted reference range: 4.30 - 11.10 10*3/?L. The reference range was not used to interpret this result as normal/abnormal. RBC (test code = 789-8) See_Comment [Automated Noxilizer] The system which generated this result transmitted [...] 32.4 g/dL 31.6-35.1 RDW-SD (test code = 44255-4) 51.0 fL 39-49.9 H RDW-CV (test code = 788-0) 16.5 % 12-15.5 H PLT (test code = 777-3) See_Comment H [Automated messa ge] The system which generated this result transmitted reference range: 166 - 358 10*3/?L. The reference range was not used to interpret this result as normal/abnormal. MPV (test code = 16892-1) 8.3 fL 9.5-12.9 L NRBC/100 WBC (test code = 9818127284) See_Comment [Automated me ssage] The system which generated this result transmitted reference range: 0.0 - 10.0 /100 WBCs. The reference range was not used to interpret this result as normal/abnormal. NRBC x10^3 (test code = 8915340554) See_Comment [Automated messa ge] The system which generated this result transmitted reference range: 10*3/?L. The reference range was not used to interpret this result as normal/abnormal. GRAN MAT (NEUT) % (test code = 770-8) 64.5 % IMM GRAN % (test code = 3360013397) 0.50 % LYMPH % (test code = 736-9) 27.1 % MONO % (test code = 5905-5) 6.6 % EOS % (test code = 713-8) 0.6 % BASO % (test code = 706-2) 0.7 % GRAN MAT x10^3(ANC) (test code = 0949932608) 5.28 10*3/uL 1.88-7.09 IMM GRAN x10^3 (test code = 5919009507) 0.04 10*3/uL 0-0.06 LYMPH x10^3 (test code = 731-0) 2.22 10*3/uL 1.32-3.29 MONO x10^3 (test code = 742-7) 0.54 10*3/uL 0.33-0.92 EOS x10^3 (test code = 711-2) 0.05 10*3/uL 0.03-0.39 BASO x10^3 (test code = 704-7) 0.06 10*3/uL 0.01-0.07 Lab Interpretation (test code = 25677-3) Abnormal [facility]2022-05-07 01:18:10* Test Item Value Reference Range Interpretation Comme nts POCT GLU (test code = 7703914395) 120 mg/dL 70-110 H Lab Interpretation (test cod e = 04416-8) Abnormal [facility]hamType and Screen - ONCE [id number] 05:46:35* Test Item Value Reference Range Interpretation Comme nts ABO & RH (test code = 20) O POSITIVE Performed at [facility] Laboratory Services [facility] Blood [place] [id number] Free: [phone] No. [id number] IAT (test code = 1185) Negative Performed at [facility] Laboratory Services [facility] Blood [place] [id number] Free: [phone] No. [id number] [facility]hamBAS[facility] METABOLIC PANEL (NA, K, CL, CO2, GLUCOSE, BUN, CREATININE, CA)2022-05-05 08:22:57* Test Item Value Reference Range Interpretation Comme nts NA (test code = 6164911151) 136 mmol/L 135-145 K (test code = 3850579823) 4.9 mmol/L 3.5-5 CL (test code = 6867823948) 108 mmol/L 98-108 CO2 TOTAL (test code = 8821860098) 22 mmol/L 23-31 L AGAP (test code = 7623653400) 2-16 BUN (test code = 8904062508) 12 mg/dL 7-23 GLUCOSE (test code = 6520326165) 155 mg/dL 70-110 H CREATININE (test code = 1037057383) 0.63 mg/dL 0.5-1.04 CALCIUM (test code = 9642928883) 8.4 mg/dL 8.6-10.6 L eGFR (test code = 8357386882) mL/min/1.73m2 LYNDSAY (test code = LYNDSAY) Association [...] imaging tests). Lab Interpretation (test code = 68478-3) Abnormal [facility]hamPROTHROMBIN TIME / [id number] 08:22:37* Test Item Value Reference Range Interpretation Comme nts PROTIME PATIENT (test code = 5964-2) See_Comment [[employer]] The system which generated this result transmitted reference range: 10.1 - 12.6 Seconds. The reference range was not used to interpret this result as normal/abnormal. INR (test code = 6301-6) Normal INR <1.1; Warfarin Therapeutic range 2.0 to 3.0 or 2.5 to 3.5, depending upon the indications. Lab Interpretation (test code = 14763-8) Normal [facility] BrenhamaPTT2022-10-17 08:22:37* Test Item Value Reference Range Interpretation Comme nts APTT Patient (test code = 3173-2) See_Comment [[employer]] The system which generated this result transmitted reference range: 26 - 36 Seconds. The reference range was not used to interpret this result as normal/abnormal. Lab Interpretation (test code = 64335-6) Normal [facility]hamFIBRINOGEN2022-10-17 08:22:37* Test Item Value Reference Range Interpretation Comme nts Fibrinogen (test code = 6173216782) 294 mg/dL 167-453 Lab Interpretation (test cod e = 77922-5) Normal [facility]hamCB WITH [id number] 08:15:01* Test Item Value Reference Range Interpretation [...] g/dL 31.6-35.1 L RDW-SD (test code = 95186-7) 52.9 fL 39-49.9 H RDW-CV (test code = 788-0) 16.8 % 12-15.5 H PLT (test code = 777-3) See_Comment H [Automated messa ge] The system which generated this result transmitted reference range: 166 - 358 10*3/?L. The reference range was not used to interpret this result as normal/abnormal. MPV (test code = 09307-1) 8.3 fL 9.5-12.9 L NRBC/100 WBC (test code = 8468142445) See_Comment [Automated Color Prom[employer] ssage] The system which generated this result transmitted reference range: 0.0 - 10.0 /100 WBCs. The reference range was not used to interpret this result as normal/abnormal. NRBC x10^3 (test code = 1184986121) See_Comment [Automated messa ge] The system which generated this result transmitted reference range: 10*3/?L. The reference range was not used to interpret this result as normal/abnormal. GRAN MAT (NEUT) % (test code = 770-8) 86.4 % IMM GRAN % (test code = 6045585203) 0.40 % LYMPH % (test code = 736-9) 11.7 % MONO % (test code = 5905-5) 1.1 % EOS % (test code = 713-8) 0.0 % BASO % (test code = 706-2) 0.4 % GRAN MAT x10^3(ANC) (test code = 5967835037) 6.36 10*3/uL 1.88-7.09 IMM GRAN x10^3 (test code = 4217341470) 0.03 10*3/uL 0-0.06 LYMPH x10^3 (test code = 731-0) 0.86 10*3/uL 1.32-3.29 L MONO x10^3 (test code = 742-7) 0.08 10*3/uL 0.33-0.92 L EOS x10^3 (test code = 711-2) 0.03-0.39 L BASO x10^3 (test code = 704-7) 0.03 10*3/uL 0.01-0.07 Lab Interpretation (test code = 26245-5) Abnormal [facility]hamVITAMIN D, [id number] 20:14:03* Test Item Value Reference Range Interpretation Comme [facility] VIT D 25OH (test code = 36522-0) 22 ng/mL 25-80 L LYNDSAY (test code = LYNDSAY) Deficiency: <20 ng/mLInsufficiency: 20-24 ng/mLOptimal: 25-80 ng/mL Lab Interpretation (test code = 28002-4) Abnormal [facility]hamBASI METABOLIC PANEL (NA, K, CL, CO2, GLUCOSE, BUN, CREATININE, CA)2022-04-15 11:27:57* Test Item Value Reference Range Interpretation Comme [facility] NA (test code = 1197365271) 138 mmol/L 135-145 K (test code = 5833070585) 3.9 mmol/L 3.5-5 CL (test code = 0595232464) 106 mmol/L 98-108 CO2 TOTAL (test code = 9277527085) 23 mmol/L 23-31 AGAP (test code = 0726661369) 2-16 BUN (test code = 9328610893) 10 mg/dL 7-23 GLUCOSE (test code = 8198928878) 91 mg/dL 70-110 CREATININE (test code = 3795669701) 0.65 mg/dL 0.5-1.04 CALCIUM (test code = 2869924815) 8.1 mg/dL 8.6-10.6 L eGFR (test code = 6363956571) mL/min/1.73m2 LYNDSAY (test code = LYNDSAY) Association [...] imaging tests). Lab Interpretation (test code = 86296-9) Abnormal [facility]hamSTROKE Protocol - Transthoracic echo (TTE) 2022-04-14 22:07:33* Test Item Value Reference Range Interpretation Comme nts Height (test code = 4128469018) in Weight (test code = 5319951656) lbs Systolic BP (test code = 4322827371) mmHg Diastolic BP (test code = 4628672997) mmHg Heart Rate (test code = 0991410471) bpm BSA (test code = 4191343864) 1.94 m2 TASV (test code = 3909024010) 15.5 cm/s LVIDD (test code = 4253090474) 6.00 cm Left Ventricular End Diastolic Volume by Teichholz Method (test code = 3667982) 183.0 mL IVS (test code = 9646591338) 1.09 cm Interventricular Septum Diastolic Thickness by 2D (test code = 4963133) 1.09 cm LVPWD (test code = 6713660312) 0.94 cm PW (test code = 0392607056) 0.94 cm 0.6-1.1 EF(Teich) (test code = 4295654539) 40.30 % LVIDS (test code = 9960440663) 4.80 cm Left Ventricular End Systolic Volume by Teichholz Method (test code = 1690946) 109.2 mL FS (test code = 5973374885) 20 % EF - 2D (test code = 24109839) 40.30 % LVOT diameter (test code = 4274381704) 2.05 cm LVOT area (test code = 7562969539) 3.30 cm2 Ao root diam (test code = 5498388914) 3.10 cm Aortic root (test code = 0219392567) 3.1 cm Ao root annulus (test code = 5349239120) 3.1 cm LA size (test code = 7647299312) 4.2 cm LAV(MOD-sp4) (test code = 1457126838) 64.90 mL MV Peak A Evette (test code = 5414274184) 115.7 cm/s E wave decelartion time (test code = 6032142154) 0.15 s MV Peak E Evette (test code = 9242748396) 106.2 cm/s E/A ratio (test code = 1875689131) ratio LVOT stroke volume (test code = 9755092587) 48.30 cm3 LVOT peak evette (test code = 2055479050) 78.4 cm/s LVOT mn grad (test code = 4225802045) mmHg AV LVOT peak gradient (test code = 8260274651) mmHg LVOT peak VTI (test code = 1561960817) 14.7 cm LV V1 mean (test code = 5150105451) 51.40 cm/s Ao peak evette (test code = 5808573795) 154.7 cm/s AV area peak evette (test code = 0908878307) 1.7 cm2 Ao max PG (test code = 6609188942) 9.60 mm[Hg] AV peak gradient (test code = 1611339694) mmHg AV regurgitation pressure 1/2 time (test code = 9911849730) 257.3 ms AI dec slope (test code = 7704434483) 498.10 cm/s2 AI max evette (test code = 5631242246) 437.60 cm/s AI max PG (test code = 9114052649) 77.80 mm[Hg] Tapse (test code = 8549888289) 2.19 cm LA Volume Index (BP) (test code = 3823078824) 32.0 mL/m2 LA volume (BP) (test code = 0652478155) 62.1 mL LAV(MOD-sp2) (test code = 4850551832) 52.70 mL A4C EF (test code = 6156151231) 44.80 % EF(sp4-el) (test code = 3244641192) 45.20 % SV(MOD-sp4) (test code = 1044345756) 71.20 mL SV(sp4-el) (test code = 8939019163) 73.90 mL LV Diastolic Volume (BP) (test code = 5726946600) 146.3 mL A2C EF (test code = 8801517922) 52.00 % EF(MOD-bp) (test code = 9951575163) 46.70 % EF(sp2-el) (test code = 6778845196) 52.40 % LV Systolic Volume (BP) (test code = 5726299233) 77.9 mL SV(MOD-bp) (test code = 1863790540) 68.40 mL SV(MOD-sp2) (test code = 8505049379) 69.20 mL EF (test code = 9802614597) Left Ventricular Stroke Volume by 2-D Biplane-MOD (test code = 9903592) 68.4 mL Radiology Study observation (narrative) (test code = 04904-0) LYNDSAY (test code = LYNDSAY) ?Left?Ventricle: Left [...] agent used and saline contrast was performed. [facility] (LEVETIRACETAM)2022-04-14 16:48:36* Test Item Value Reference Range Interpretation Comme nts JUSTINEPPRA (test code = 5297342434) 12-46 L LYNDSAY (test code = LYNDSAY) Therapeutic range: 12-46 ?g/mL ? ?Toxic: Not well established.Test developed and characteristics determined by [facility] Laboratory Services. Lab Interpretation (test code = 94720-4) [facility] (Na, K, Cl, CO2, Glucose, BUN, Creatinine, Ca)2022-04-14 10:50:11* Test Item Value Reference Range Interpretation Comme nts NA (test code = 0274602334) 136 mmol/L 135-145 K (test code = 5684014790) 3.8 mmol/L 3.5-5 CL (test code = 3152594640) 105 mmol/L 98-108 CO2 TOTAL (test code = 3687618862) 25 mmol/L 23-31 AGAP (test code = 2436060772) 2-16 BUN (test code = 4526519476) 9 mg/dL 7-23 GLUCOSE (test code = 5492195484) 101 mg/dL 70-110 CREATININE (test code = 2753093669) 0.66 mg/dL 0.5-1.04 CALCIUM (test code = 6509458892) 8.1 mg/dL 8.6-10.6 L eGFR (test code = 9661241605) mL/min/1.73m2 LYNDSAY (test code = LYNDSAY) Association [...] imaging tests). Lab Interpretation (test code = 76485-5) Abnormal [facility] BrenhamMagensium, [id number] 10:50:11* Test Item Value Reference Range Interpretation Comme nts MAGNESIUM (test code = 6293477594) 1.9 mg/dL 1.7-2.4 Lab Interpretation (test cod e = 20557-6) Normal [facility] BrenhamThyroid Stimulating Chidfek6645-33-72 22:21:44 * Test Item Value Reference Range Interpretation Comme nts TSH (test code = 3001428033) See_Comment Biotin has been reported to cause a negative bias, interpret results relative to patient's use of biotin. [Automated message] The system which generated this result transmitted reference range: 0.45 - 4.70 mIU/L. The reference range was not used to interpret this result as normal/abnormal. Lab Interpretation (test code = 19807-8) Normal [facility] BrenhamGLYCOSYLATED HEMOGLOBIN (A1C)2022-04-13 21:53:43* Test Item Value Reference Range Interpretation Comme nts HGB A1C (test code = 4548-4) 5.8 % 4-5.7 H LYNDSAY (test code = LYNDSAY) Reference RangesNormal: <5.7%Prediabetes: 5.7 - 6.4%Diabetes: > 6.5% Lab Interpretation (test code = 10408-5) Abnormal [facility] BrenhamFASTING LIPID PANEL (32280)(TOTAL CHOLESTEROL, TRIGLYCERIDES, HDL)2022-04-13 21:34:53* Test Item Value Reference Range Interpretation Comme nts CHOL (test code = 1796658501) 201 mg/dL 120-200 H HDL (test code = 6956709237) 56 mg/dL See_Comment [Automated Noxilizer] The system which generated this result transmitted reference range: >=50. The reference range was not used to interpret this result as normal/abnormal. HDLC RATIO (test code = 1224945457) See_Comment [Automated Noxilizer] The system which generated this result transmitted reference range: <=4.5. The reference range was not used to interpret this result as normal/abnormal. TRIG (test code = 0665734178) 355 mg/dL 30-170 H LDL CHOL (test code = 04963-5) 74 mg/dL See_Comment [Automated Noxilizer] The system which generated this result transmitted reference range: <=160. The reference range was not used to interpret this result as normal/abnormal. VLDL (test code = 4851075919) 71 mg/dL 5-60 H Lab Interpretation (test code = 34548-8) Abnormal [facility] BrenhamTroponin I - Code Qaaaqb4170-18-08 18:46:27* Test Item Value Reference Range Interpretation Comments TROPONIN I (test code = 3249923243) 0.013 ng/mL See_Comment [Automated message] The system [...] of biotin. Lab Interpretation (test code = 07065-3) Normal [facility] Metabolic Panel (NA, K, CL, CO2, Glucose, BUN, Creatinine, CA) - Code Hemezo9881-14-34 18:35:07* Test Item Value Reference Range Interpretation Comme nts NA (test code = 7628829964) 136 mmol/L 135-145 K (test code = 9684426902) 4.3 mmol/L 3.5-5 CL (test code = 6873242540) 105 mmol/L 98-108 CO2 TOTAL (test code = 1113986965) 27 mmol/L 23-31 AGAP (test code = 9860241328) 2-16 BUN (test code = 2594574428) 8 mg/dL 7-23 GLUCOSE (test code = 7705707976) 130 mg/dL 70-110 H CREATININE (test code = 5890659231) 0.75 mg/dL 0.5-1.04 CALCIUM (test code = 6118307200) 8.5 mg/dL 8.6-10.6 L eGFR (test code = 3008825288) mL/min/1.73m2 LYNDSAY (test code = LYNDSAY) Association [...] imaging tests). Lab Interpretation (test code = 87578-6) [facility]normal [facility] BrenhamaPTT - Code Ygfzda8451-46-47 18:32:46* Test Item Value Reference Range Interpretation Comme [facility] APTT Patient (test code = 3173-2) See_Comment [Automated message] The system which generated this result transmitted reference range: 23 - 38 Seconds. The reference range was not used to interpret this result as normal/abnormal. LYNDSAY (test code = LYNDSAY) The [facility] patient population mean normal value for aPTT is 30 seconds. Lab Interpretation (test code = 85746-0) Normal [facility] BrenhamProthrombin Time / INR - Code Knbtyt6784-65-16 18:30:45* Test Item Value Reference Range Interpretation [...] the indications. Lab Interpretation (test code = 93266-9) Normal [facility] BrenhamCBC without Diff - Code Alqxvb5649-85-03 18:23:07* Test Item Value Reference Range Interpretation [...] result as normal/abnormal. MPV (test code = 43998-0) 8.1 fL 9.5-12.9 L RDW-CV (test code = 788-0) 16.1 % 12-15.5 H RDW-SD (test code = 69956-2) 49.2 fL 39-49.9 NRBC x10^3 (test code = [id number]) See_Comment [Automated STYLHUNTa ge] The system which generated this result transmitted reference range: 10*3/?L. The reference range was not used to interpret this result as normal/abnormal. NRBC/100 WBC (test code = [id number]) See_Comment [Automated STYLHUNTa ge] The system which generated this result transmitted reference range: 0.0 - 10.0 /100 WBCs. The reference range was not used to interpret this result as normal/abnormal. IPF % (test code = [id number]) Lab Interpretation (test code = 95637-2) Abnormal [facility] [id number] 21:06:40* Test Item Value Reference Range Interpretation Comments TROPONIN I (test code = 7471565673) 0.005 ng/mL See_Comment [Automated message] The system [...] of biotin. Lab Interpretation (test code = 54256-1) Normal [facility]. METABOLIC PANEL (55853)2021-11-23 20:55:42* Test Item Value Reference Range Interpretation Comme nts NA (test code = 2094852821) 137 mmol/L 135-145 K (test code = 0462344796) 4.3 mmol/L 3.5-5.0 CL (test code = 7833794391) 104 mmol/L 98-108 CO2 TOTAL (test code = 4256303716) 22 mmol/L 23-31 L AGAP (test code = 4168795103) 2-16 BUN (test code = 5588324192) 15 mg/dL 7-23 GLUCOSE (test code = 5030852040) 114 mg/dL 70-110 H CREATININE (test code = 3589521128) 0.68 mg/dL 0.50-1.04 TOTAL BILI (test code = 7051842145) 0.5 mg/dL 0.1-1.1 CALCIUM (test code = 4062713093) 9.1 mg/dL 8.6-10.6 T PROTEIN (test code = 3044012378) 7.3 g/dL 6.3-8.2 ALBUMIN (test code = 8335925586) 4.4 g/dL 3.5-5.0 ALK PHOS (test code = 6227425327) 243 U/L 34-122 H ALTv (test code = 1742-6) 24 U/L 5-35 AST(SGOT) (test code = 9963190110) 30 U/L 13-40 eGFR (test code = 4609458083) mL/min/1.73m2 LYNDSAY (test code = LYNDSAY) Association [...] imaging tests). Lab Interpretation (test code = 57343-4) [facility] 20:55:22* Test Item Value Reference Range Interpretation Comme nts LIPASE (test code = 9618536726) 96 U/L 0-220 Lab Interpretation (test cod e = 59747-4) [facility] [id number] 20:46:00* Test Item Value Reference Range Interpretation Comme nts POCT PREG (test code = 1605) negative On board controls acceptable with C Line (test code = 3574) present POCT PREG LOT # (test code = 3575) [id number] POCT PREG TEST DATE ( test code = 3576) 04/18/2023 Lab Interpretation (test cod e = 40154-2) [facility] WITH [id number] 20:40:38* Test Item Value Reference Range Interpretation Comme nts WBC (test code = 6690-2) See_Comment [Automated Noxilizer] The system which generated this result transmitted reference range: 4.30 - 11.10 10*3/?L. The reference range was not used to interpret this result as normal/abnormal. RBC (test code = 789-8) See_Comment [Automated Noxilizer] The system which generated this result transmitted [...] 31.8 g/dL 31.6-35.1 RDW-SD (test code = 26688-0) 53.7 fL 39.0-49.9 H RDW-CV (test code = 788-0) 17.2 % 12.0-15.5 H PLT (test code = 777-3) See_Comment H [Automated messa ge] The system which generated this result transmitted reference range: 166 - 358 10*3/?L. The reference range was not used to interpret this result as normal/abnormal. MPV (test code = 37000-0) 8.5 fL 9.5-12.9 L NRBC/100 WBC (test code = 0203335964) See_Comment [Automated Color Promos ssage] The system which generated this result transmitted reference range: 0.0 - 10.0 /100 WBCs. The reference range was not used to interpret this result as normal/abnormal. NRBC x10^3 (test code = 8035524925) <0.01 See_Comment [Automated messa ge] The system which generated this result transmitted reference range: 10*3/?L. The reference range was not used to interpret this result as normal/abnormal. GRAN MAT (NEUT) % (test code = 770-8) 53.7 % IMM GRAN % (test code = 5033294156) 0.90 % LYMPH % (test code = 736-9) 32.6 % MONO % (test code = 5905-5) 10.1 % EOS % (test code = 713-8) 1.5 % BASO % (test code = 706-2) 1.2 % GRAN MAT x10^3(ANC) (test code = 5361595744) 4.98 10*3/uL 1.88-7.09 IMM GRAN x10^3 (test code = 7909650283) 0.08 10*3/uL 0.00-0.06 H LYMPH x10^3 (test code = 731-0) 3.02 10*3/uL 1.32-3.29 MONO x10^3 (test code = 742-7) 0.94 10*3/uL 0.33-0.92 H EOS x10^3 (test code = 711-2) 0.14 10*3/uL 0.03-0.39 BASO x10^3 (test code = 704-7) 0.11 10*3/uL 0.01-0.07 H Lab Interpretation (test code = 30304-6) Abnormal [facility] GLU[facility] (AUTOMATED)2021-11-23 20:17:33* Test Item Value Reference Range Interpretation Comme nts POCT GLU (test code = 2770305690) 111 mg/dL 70-110 H Notified Provide r Lab Interpretation (test code = 25159-2) Abnormal [facility] TEST, THINPREP, [id number] 00:00:00 * Test Item Value Reference Range Interpretation Comme nts SOURCE: (test code = 8001) Endocervical SLIDES: (test code = 8011) 1 LMP: (test code = 8021) 06/03/2021 SPECIMEN ADEQUACY: (test code = 58271) (NOTE) INTERPRETATION: (test code = 47021) ASCUS/EPITH. ABNORMALITY; SEE BELOW INFORMATION BROKER: (test code = 8101) CHANA Thacker(ASC)[facility] PATHOLOGIST INTERPRETATION BY: (test code = 8122) Nahid Russell M.D. LOCATION: (test code = 82841) (NOTE) CPT: (test code = 8140) (NOTE) PAP TEST, THINPREP, [id number] 00:00:00* Test Item Value Reference Range Interpretation Comme nts SOURCE: (test code = 8001) Endocervical SLIDES: (test code = 8011) 1 LMP: (test code = 8021) 06/03/2021 SPECIMEN ADEQUACY: (test code = 81585) (NOTE) INTERPRETATION: (test code = 34141) ASCUS/EPITH. ABNORMALITY; SEE BELOW INFORMATION BROKER: (test code = 8101) CHANA Thacker(ASC)[facility] INTERPRETATION BY: (test code = 8122) Nahid J Russell, M.D. LOCATION: (test code = 88734) (NOTE) CPT: (test code = 8140) (NOTE) HPV HIGH RISK WITH GENOTYPE, [id number] 00:00:00* Test Item Value Reference Range Interpretation Comme nts HPV HIGH RISK INTERP (test c ode = 71861) POSITIVE HPV 16 (test code = 07763) POSITIVE HPV 18 (test code = 63135) NEGATIVE HPV, HR, OTHER GENOTYPES (te st code = 23946) POSITIVE HPV HIGH RISK WITH GENOTYPE, [id number] 00:00:00* Test Item Value Reference Range Interpretation Comme nts HPV HIGH RISK INTERP (test c ode = 26722) POSITIVE HPV 16 (test code = 69500) POSITIVE HPV 18 (test code = 82981) NEGATIVE HPV, HR, OTHER GENOTYPES (te st code = 44869) POSITIVE [id number] 03:22:48* Test Item Value Reference Range Interpretation Comme nts APPEARANCE (test code = 9295572321) Hazy Clear A COLOR (test code = 0501360262) Yellow Yellow PH (test code = 3580883297) 4.8-8.0 SP GRAVITY (test code = 7773995899) 1.003-1.030 GLU U QUAL (test code = 6558895538) Normal Normal BLOOD (test code = 7555562659) Negative Negative Interference fro m ascorbic acid may cause false negative results. KETONES (test code = 7316906656) 5 mg/dL Negative A PROTEIN (test code = 2887-8) Negative Negative UROBILIN (test code = 5380540922) 4.0 mg/dL Normal A BILIRUBIN (test code = 9142515842) Negative Negative NITRITE (test code = 2341906927) Negative Negative LEUK GRUPO (test code = 2823608854) Negative Negative RBC/HPF (test code = 7694047845) See_Comment [Automated STYLHUNTa ge] The system which generated this result transmitted reference range: 0 - 3 HPF. The reference range was not used to interpret this result as normal/abnormal. WBC/HPF (test code = 0712884234) <1 See_Comment [Automated STYLHUNTa ge] The system which generated this result transmitted reference range: 0 - 5 HPF. The reference range was not used to interpret this result as normal/abnormal. BACTERIA (test code = 6952974814) Few Negative A SQ EPITH (test code = 1097638624) HPF Lab Interpretation (test code = 14924-3) [facility]normal [facility]2021-08-29 03:22:48* Test Item Value Reference Range Interpretation Comme nts APPEARANCE (test code = 3378009583) Hazy Clear A COLOR (test code = 1171948866) Yellow Yellow PH (test code = 6998200368) 4.8-8.0 SP GRAVITY (test code = 7555983976) 1.003-1.030 GLU U QUAL (test code = 1323129828) Normal Normal BLOOD (test code = 2620536541) Negative Negative KETONES (test code = 5781426906) 5 mg/dL Negative A PROTEIN (test code = 2887-8) Negative Negative UROBILIN (test code = 8181731291) 4.0 mg/dL Normal A BILIRUBIN (test code = 1832169475) Negative Negative NITRITE (test code = 0396988303) Negative Negative LEUK GRUPO (test code = 5187201852) Negative Negative RBC/HPF (test code = 1073078625) See_Comment [Automated Noxilizer] The system which generated this result transmitted reference range: 0 - 3 HPF. The reference range was not used to interpret this result as normal/abnormal. WBC/HPF (test code = 9362648438) <1 See_Comment [Automated Noxilizer] The system which generated this result transmitted reference range: 0 - 5 HPF. The reference range was not used to interpret this result as normal/abnormal. BACTERIA (test code = 6272195207) Few Negative A SQ EPITH (test code = 8303956640) HPF Lab Interpretation (test code = 30254-0) [facility]normal [facility] [id number] 02:45:00* Test Item Value Reference Range Interpretation Comments TROPONIN I (test code = 3918883210) 0.002 ng/mL See_Comment [Automated message] The system [...] of biotin. Lab Interpretation (test code = 41001-0) Normal [facility] [id number] 02:45:00* Test Item Value Reference Range Interpretation Comme nts TROPONIN I (test code = 1060768410) 0.002 ng/mL See_Comment [Automated STYLHUNTa FD[employer] Group] The system which generated this result transmitted reference range: <=0.034. The reference range was not used to interpret this result as normal/abnormal. LYNDSAY (test code = LYNDSAY) Lab Interpretation (test code = 79085-9) Normal [facility] [id number] 02:41:57* Test Item Value Reference Range Interpretation Comme nts NT-proBNP (test code = 8578937095) 169 pg/mL See_Comment H [Automated message] The system which generated this result transmitted reference range: <=125. The reference range was not used to interpret this result as normal/abnormal. LYNDSAY (test code = LYNDSAY) Biotin has been reported to cause a negative bias, interpret results relative to patient's use of biotin. Lab Interpretation (test code = 65015-4) Abnormal [facility] [id number] 02:41:57* Test Item Value Reference Range Interpretation Comme nts NT-proBNP (test code = 8071027182) 169 pg/mL See_Comment H [Automated STYLHUNTa FD9 Group] The system which generated this result transmitted reference range: <=125. The reference range was not used to interpret this result as normal/abnormal. LYNDSAY (test code = LYNDSAY) Lab Interpretation (test code = 36032-2) [facility]normal [facility] METABOLIC PANEL (51164)2021-03-17 02:09:13* Test Item Value Reference Range Interpretation Comme nts NA (test code = 7373100982) 137 mmol/L 135-145 K (test code = 3735693939) 4.2 mmol/L 3.5-5.0 CL (test code = 7164210408) 102 mmol/L 98-108 CO2 TOTAL (test code = 9391503488) 25 mmol/L 23-31 AGAP (test code = 2772221649) 2-16 BUN (test code = 8319268505) 18 mg/dL 7-23 GLUCOSE (test code = 3037248840) 144 mg/dL 70-110 H CREATININE (test code = 3771917522) 0.77 mg/dL 0.50-1.04 TOTAL BILI (test code = 5170192650) 0.4 mg/dL 0.1-1.1 CALCIUM (test code = 4409184082) 8.9 mg/dL 8.6-10.6 T PROTEIN (test code = 9452432836) 6.8 g/dL 6.3-8.2 ALBUMIN (test code = 3988494607) 3.9 g/dL 3.5-5.0 ALK PHOS (test code = 8207564802) 84 U/L 34-122 ALTv (test code = 1742-6) 13 U/L 5-35 AST(SGOT) (test code = 6609024328) 17 U/L 13-40 eGFR (test code = 5483261580) mL/min/1.73m2 LYNDSAY (test code = LYNDSAY) Association [...] imaging tests). Lab Interpretation (test code = 80185-8) Abnormal [facility]. METABOLIC PANEL (24010)2021-03-17 02:09:13* Test Item Value Reference Range Interpretation Comme nts NA (test code = 6170079754) 137 mmol/L 135-145 K (test code = 1804307193) 4.2 mmol/L 3.5-5.0 CL (test code = 5887738239) 102 mmol/L 98-108 CO2 TOTAL (test code = 7133714490) 25 mmol/L 23-31 AGAP (test code = 6009722379) 2-16 BUN (test code = 1160462895) 18 mg/dL 7-23 GLUCOSE (test code = 4917402127) 144 mg/dL 70-110 H CREATININE (test code = 7642569561) 0.77 mg/dL 0.50-1.04 TOTAL BILI (test code = 3465939441) 0.4 mg/dL 0.1-1.1 CALCIUM (test code = 7258097508) 8.9 mg/dL 8.6-10.6 T PROTEIN (test code = 6750519450) 6.8 g/dL 6.3-8.2 ALBUMIN (test code = 4699755875) 3.9 g/dL 3.5-5.0 ALK PHOS (test code = 3067361752) 84 U/L 34-122 ALTv (test code = 1742-6) 13 U/L 5-35 AST(SGOT) (test code = 1950721561) 17 U/L 13-40 eGFR (test code = 7674655016) mL/min/1.73m2 LYNDSAY (test code = LYNDSAY) Lab Interpretation (test cod e = 69427-2) Abnormal [facility] WITH [id number] 01:56:33* Test Item Value Reference Range Interpretation [...] g/dL 31.6-35.1 L RDW-SD (test code = 26442-0) 55.5 fL 39.0-49.9 H RDW-CV (test code = 788-0) 18.9 % 12.0-15.5 H PLT (test code = 777-3) See_Comment H [Automated messa ge] The system which generated this result transmitted reference range: 166 - 358 10*3/?L. The reference range was not used to interpret this result as normal/abnormal. MPV (test code = 97047-6) 8.2 fL 9.5-12.9 L NRBC/100 WBC (test code = 2115437178) See_Comment [Automated Color Promos ssage] The system which generated this result transmitted reference range: 0.0 - 10.0 /100 WBCs. The reference range was not used to interpret this result as normal/abnormal. NRBC x10^3 (test code = 2047522520) <0.01 See_Comment [Automated messa ge] The system which generated this result transmitted reference range: 10*3/?L. The reference range was not used to interpret this result as normal/abnormal. GRAN MAT (NEUT) % (test code = 770-8) 61.7 % IMM GRAN % (test code = 7479870535) 0.80 % LYMPH % (test code = 736-9) 28.5 % MONO % (test code = 5905-5) 6.3 % EOS % (test code = 713-8) 1.8 % BASO % (test code = 706-2) 0.9 % GRAN MAT x10^3(ANC) (test code = 1228218023) 7.31 10*3/uL 1.88-7.09 H IMM GRAN x10^3 (test code = 4117017952) 0.09 10*3/uL 0.00-0.06 H LYMPH x10^3 (test code = 731-0) 3.38 10*3/uL 1.32-3.29 H MONO x10^3 (test code = 742-7) 0.75 10*3/uL 0.33-0.92 EOS x10^3 (test code = 711-2) 0.21 10*3/uL 0.03-0.39 BASO x10^3 (test code = 704-7) 0.11 10*3/uL 0.01-0.07 H Lab Interpretation (test code = 98803-0) Abnormal [facility] WITH [id number] 01:56:33* Test Item Value Reference Range Interpretation [...] g/dL 31.6-35.1 L RDW-SD (test code = 48277-4) 55.5 fL 39.0-49.9 H RDW-CV (test code = 788-0) 18.9 % 12.0-15.5 H PLT (test code = 777-3) See_Comment H [Automated messa ge] The system which generated this result transmitted reference range: 166 - 358 10*3/?L. The reference range was not used to interpret this result as normal/abnormal. MPV (test code = 06960-8) 8.2 fL 9.5-12.9 L NRBC/100 WBC (test code = 2966421301) See_Comment [Automated Color Promos ssage] The system which generated this result transmitted reference range: 0.0 - 10.0 /100 WBCs. The reference range was not used to interpret this result as normal/abnormal. NRBC x10^3 (test code = 7274043072) <0.01 See_Comment [Automated messa ge] The system which generated this result transmitted reference range: 10*3/?L. The reference range was not used to interpret this result as normal/abnormal. GRAN MAT (NEUT) % (test code = 770-8) 61.7 % IMM GRAN % (test code = 6526025392) 0.80 % LYMPH % (test code = 736-9) 28.5 % MONO % (test code = 5905-5) 6.3 % EOS % (test code = 713-8) 1.8 % BASO % (test code = 706-2) 0.9 % GRAN MAT x10^3(ANC) (test code = 8126652700) 7.31 10*3/uL 1.88-7.09 H IMM GRAN x10^3 (test code = 8695931317) 0.09 10*3/uL 0.00-0.06 H LYMPH x10^3 (test code = 731-0) 3.38 10*3/uL 1.32-3.29 H MONO x10^3 (test code = 742-7) 0.75 10*3/uL 0.33-0.92 EOS x10^3 (test code = 711-2) 0.21 10*3/uL 0.03-0.39 BASO x10^3 (test code = 704-7) 0.11 10*3/uL 0.01-0.07 H Lab Interpretation (test code = 69462-4) Abnormal [facility]- (ID NOW RAPID TESTING)2021-03-17 01:38:12* Test Item Value Reference Range Interpretation Comme nts SARS-CoV-2 Rapid ID NOW (test code = 36142-3) Not Detected Not Detected LYNDSAY (test code = LYNDSAY) ID NOW COVID-19 As say is an isothermal nucleic acid amplification test intended for the qualitative detection of nucleic acid from SARS-CoV-2 viral RNA in nasopharyngeal (HEAD [employer]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 It is used under Emergency [...] clinically indicated. Lab Interpretation (test code = 73948-1) Normal [place] [address] (ID NOW RAPID TESTING)2021-03-17 01:38:12* Test Item Value Reference Range Interpretation Comme nts SARS-CoV-2 Rapid ID NOW (raisa t code = 86215-6) Not Detected Not Detected LYNDSAY (test code = LYNDSAY) Lab Interpretation (test cod e = 07012-8) Normal [place] [address] (ID NOW RAPID TESTING)2021-02-19 17:42:45* Test Item Value Reference Range Interpretation Comme nts SARS-CoV-2 Rapid ID NOW (test code = 68246-8) Not Detected Not Detected LYNDSAY (test code = LYNDSAY) ID NOW COVID-19 As say is an isothermal nucleic acid amplification test intended for the qualitative detection of nucleic acid from SARS-CoV-2 viral RNA in nasopharyngeal (HEAD START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 It is used under Emergency [...] clinically indicated. Lab Interpretation (test code = 87849-4) Normal [facility] ABDOMEN PELVIS W [id number] 17:24:55Thickening of the gastric antrum and duodenal bulb could be fromunderdistention, the differential would include sequela of peptic ulcerdisease. No findings of ulcer perforation. Otherwise, no acute intra- abdominal or pelvic abnormality. Stable thickening and nodularity of the left adrenal gland. RL: 8722 Patient name: HEATHER TURNERB: 1970 51 years EXAMINATION: CT ABDOMEN [...] by James Freeman at 02/19/2021 12:24 PMUnTexas [facility] for ChildrenUrinalysis2021-08-03 17:03:40* Test Item Value Reference Range Interpretation Comme nts APPEARANCE (test code = 9313835874) Hazy Clear A COLOR (test code = 6845398629) Mabel Yellow A PH (test code = 0925117898) 4.8-8.0 SP GRAVITY (test code = 2049024033) 1.003-1.030 H GLU U QUAL (test code = 6501680500) Normal Normal BLOOD (test code = 5283888554) Negative Negative KETONES (test code = 6229265604) 5 mg/dL Negative A PROTEIN (test code = 2887-8) 30 mg/dL Negative A UROBILIN (test code = 3491795588) 4.0 mg/dL Normal A BILIRUBIN (test code = 3300779588) 4 mg/dL Negative A NITRITE (test code = 1361491756) Negative Negative LEUK GRUPO (test code = 2316689512) Negative Negative RBC/HPF (test code = 9292016522) See_Comment H [Automated messa ge] The system which generated this result transmitted reference range: 0 - 3 HPF. The reference range was not used to interpret this result as normal/abnormal. WBC/HPF (test code = 2865310552) See_Comment H [Automated messa ge] The system which generated this result transmitted reference range: 0 - 5 HPF. The reference range was not used to interpret this result as normal/abnormal. BACTERIA (test code = 8181161547) Few Negative A MUCOUS (test code = 7352580653) Moderate Negative LPF A SQ EPITH (test code = 5942889547) HPF CA OXALATE (test code = 1135824869) See_Comment H [Automated messa ge] The system which generated this result transmitted reference range: <=1 HPF. The reference range was not used to interpret this result as normal/abnormal. Ictotest (test code = 8663318704) Negative Lab Interpretation (test code = 22866-4) [facility]normal [facility]ham[facility] Metabolic Xspog2907-17-04 16:34:55* Test Item Value Reference Range Interpretation Comme nts NA (test code = 5099662741) 139 mmol/L 135-145 K (test code = 2458373066) 4.3 mmol/L 3.5-5.0 CL (test code = 4039695280) 105 mmol/L 98-108 CO2 TOTAL (test code = 6952006807) 26 mmol/L 23-31 AGAP (test code = 6523206493) 2-16 BUN (test code = 8970410930) 11 mg/dL 7-23 GLUCOSE (test code = 8369089197) 95 mg/dL 70-110 CREATININE (test code = 1894733698) 0.70 mg/dL 0.50-1.04 TOTAL BILI (test code = 8886815837) 0.6 mg/dL 0.1-1.1 CALCIUM (test code = 5334965253) 8.9 mg/dL 8.6-10.6 T PROTEIN (test code = 4468769648) 7.7 g/dL 6.3-8.2 ALBUMIN (test code = 6132458570) 4.1 g/dL 3.5-5.0 ALK PHOS (test code = 5727102868) 79 U/L 34-122 ALTv (test code = 1742-6) 10 U/L 5-35 AST(SGOT) (test code = 0862818558) 22 U/L 13-40 eGFR (test code = 5981599521) mL/min/1.73m2 LYNDSAY (test code = LYNDSAY) Association [...] [facility]ham[facility], [id number] 16:34:14* Test Item Value Reference Range Interpretation Comme nts LIPASE (test code = 1281381805) 45 U/L 0-220 Lab Interpretation (test cod e = 52722-1) Normal [facility]ham[facility] with [id number] 16:21:12* Test Item Value Reference Range Interpretation Comme nts WBC (test code = 6690-2) See_Comment [Automated Noxilizer] The system which generated this result transmitted reference range: 4.30 - 11.10 10*3/?L. The reference range was not used to interpret this result as normal/abnormal. RBC (test code = 789-8) See_Comment [Automated Noxilizer] The system which generated this result transmitted [...] g/dL 31.6-35.1 L RDW-SD (test code = 08839-0) 54.4 fL 39.0-49.9 H RDW-CV (test code = 788-0) 18.3 % 12.0-15.5 H PLT (test code = 777-3) See_Comment H [Automated messa ge] The system which generated this result transmitted reference range: 166 - 358 10*3/?L. The reference range was not used to interpret this result as normal/abnormal. MPV (test code = 03333-0) 8.5 fL 9.5-12.9 L NRBC/100 WBC (test code = 4452302499) See_Comment [Automated me ssage] The system which generated this result transmitted reference range: 0.0 - 10.0 /100 WBCs. The reference range was not used to interpret this result as normal/abnormal. NRBC x10^3 (test code = 4677003344) <0.01 See_Comment [Automated messa ge] The system which generated this result transmitted reference range: 10*3/?L. The reference range was not used to interpret this result as normal/abnormal. GRAN MAT (NEUT) % (test code = 770-8) 78.3 % IMM GRAN % (test code = 3024936427) 0.40 % LYMPH % (test code = 736-9) 15.4 % MONO % (test code = 5905-5) 4.8 % EOS % (test code = 713-8) 0.1 % BASO % (test code = 706-2) 1.0 % GRAN MAT x10^3(ANC) (test code = 5213482493) 7.15 10*3/uL 1.88-7.09 H IMM GRAN x10^3 (test code = 8212683881) 0.04 10*3/uL 0.00-0.06 LYMPH x10^3 (test code = 731-0) 1.41 10*3/uL 1.32-3.29 MONO x10^3 (test code = 742-7) 0.44 10*3/uL 0.33-0.92 EOS x10^3 (test code = 711-2) <0.03 0.03-0.39 L BASO x10^3 (test code = 704-7) 0.09 10*3/uL 0.01-0.07 H Lab Interpretation (test code = 79302-2) Abnormal [facility] Consult Notes Date/Time Note Provider Source 2024-01-10 12:39:30 Associated Order(s): CONSULT CARDIOLOGY [facility] Cardiology Consult PCP: PATIENT DOES NOT HAVE A PCP Date of Service: 01/10/2024 CHIEF COMPLAINT/reason for consult: Chest pain HISTORY OF PRESENT ILLNESS This is a 53 years old female with past medical history of smoking, COPD, hypertension, obesity, nonobstructive coronary artery disease, systolic and diastolic heart failure, left ventricular thrombosis and pulm hypertension. She presented to [facility] emergency room with chest pain. She has [...] (chronic obstructive pulmonary disease) Diverticulitis Epilepsy Hypertension LA (myocardial infarction) 07/20/2007 Slipped disc Stomach cancer Substance abuse Marijuana daily-for anxiety Past Surgical History: Procedure Laterality Date ANTERIOR CERVICAL FUSION CHOLECYSTECTOMY HAND/FINGER SURGERY UNLISTED Bilateral 3 L hand, 3 R hand METATARSAL OSTEOTOMY Right 08/14/2015 Surgeon: Luis Jones Jr., DPM; Location: [facility] OR [facility] TONSILLECTOMY Family History Problem Relation Age [...] pulmonary disease) Obesity Coronary artery disease involving resighini coronary artery of resighini heart without angina pectoris Snores Cigarette smoker [...] further assistance. Kylee Montez MD, FACC, [employer] Science Instructor Division of Cardiovascular Medicine [facility] - Health 2023-12-15 08:28:19 Associated Order(s): CONSULT CARDIOLOGY [facility] Cardiology Consult PCP: PATIENT DOES NOT HAVE A PCP Date of Service: 12/15/2023 CHIEF COMPLAINT/reason for consult: Heart failure HISTORY OF PRESENT ILLNESS This is a 53 years old female with past medical history of smoking, COPD, hypertension, obesity, nonobstructive coronary artery disease, systolic and diastolic heart failure, left ventricular thrombosis and pulm hypertension. She presented to [facility] emergency room with dyspnea, chest pain and [...] (chronic obstructive pulmonary disease) Diverticulitis Epilepsy Hypertension LA (myocardial infarction) 07/20/2007 Slipped disc Stomach cancer Substance abuse Marijuana daily-for anxiety Past Surgical History: Procedure Laterality Date ANTERIOR CERVICAL FUSION CHOLECYSTECTOMY HAND/FINGER SURGERY UNLISTED Bilateral 3 L hand, 3 R hand METATARSAL OSTEOTOMY Right 08/14/2015 Surgeon: Luis Jones Jr., ESTHER; Location: [facility] OR [facility] TONSILLECTOMY Family History Problem Relation Age [...] pain, unspecified type Coronary artery disease involving resighini coronary artery of resighini heart without angina pectoris Snores Cigarette smoker [...] be of further assistance. Kylee Montez MD, [facility], [place] Science Instructor Division of Cardiovascular Medicine [facility] [employer] 2023-11-27 14:57:00 Associated Order(s): CONSULT ADULT PHYSICAL THERAPY 11/27/2023 Physical therapy note: Duplicate consult. Sami Teran PT, DPT,CMSR Sami Teran PT [facility] [employer] 2023-11-25 10:16:00 Associated Order(s): CONSULT ADULT PHYSICAL [...] (chronic obstructive pulmonary disease) Diverticulitis Epilepsy Hypertension LA (myocardial infarction) 07/20/2007 Slipped disc Stomach cancer Substance abuse Marijuana daily-for anxiety PSH: Past Surgical History: Procedure Laterality Date ANTERIOR CERVICAL FUSION CHOLECYSTECTOMY HAND/FINGER SURGERY UNLISTED Bilateral 3 L hand, 3 R hand METATARSAL OSTEOTOMY Right 08/14/2015 Surgeon: Luis Jones Jr., DPM; Location: [facility] TONSILLECTOMY Prior Living Situation: lives with her [...] -Pain Management: Nursing Notified COMMUNICATION Primary Language: Sami Able to Verbalize needs: Yes Vision:good; no [...] 30 min Sami Loza. GAURI Teran, DPT,CMSR [facility] - Health History and Physical Notes Date/Time Note Provider Source 2024-01-09 22:04:15 [facility] Hospitalist Admission H&P Date of Service: 01/09/2024 CHIEF COMPLAINT: Patient with complaints of chest pain and a history of cardiomyopathy with left ventricular thrombus HISTORY OF PRESENT ILLNESS Heather Turner is a 53 year old female who presents with chest discomfort. Patient had extensive cardiac workup done recently at [facility]. At that time, patient was noted [...] a while. Patient recently started coming to [facility] as she had been going to [facility]. At this time, she will be [...] (chronic obstructive pulmonary disease) Diverticulitis Epilepsy Hypertension LA (myocardial infarction) 07/20/2007 Slipped disc Stomach cancer Substance abuse Marijuana daily-for anxiety Pseudoseizures PAST SURGICAL HISTORY Past Surgical History: Procedure Laterality Date ANTERIOR CERVICAL FUSION CHOLECYSTECTOMY HAND/FINGER SURGERY UNLISTED Bilateral 3 L hand, 3 R hand METATARSAL OSTEOTOMY Right 08/14/2015 Surgeon: Luis Jones Jr., ESTHER; Location: [facility] OR Location TONSILLECTOMY ALLERGIES Allergies [...] edema versus atypical pneumonia. RL: [id number] AFC: [id number] End of report CHEST 1 VW Narrative [...] high risk of morbidity and mortality. 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 [...] (chronic obstructive pulmonary disease) Diverticulitis Epilepsy Hypertension LA (myocardial infarction) 07/20/2007 Slipped disc Stomach cancer Substance abuse Marijuana daily-for anxiety Past Surgical History: Procedure Laterality Date ANTERIOR CERVICAL FUSION CHOLECYSTECTOMY HAND/FINGER SURGERY UNLISTED Bilateral 3 L hand, 3 R hand METATARSAL OSTEOTOMY Right 08/14/2015 Surgeon: Luis Jones Jr., DPM; Location: [facility] TONSILLECTOMY Family History Problem Relation Age of [...] On Eliquis Code Status: Full Code T [facility] EMERGENCY PHYSICIAN STAFF [facility] 2023-11-22 13:30:57 CCU Team Admit H&P [...] lumbar spinal stenosis, and depression presenting from [facility] ED due to SOB. Patient with NSTEMI [...] (chronic obstructive pulmonary disease) Diverticulitis Epilepsy Hypertension LA (myocardial infarction) 07/20/2007 Slipped disc Stomach cancer Substance abuse Marijuana daily-for anxiety Prior to Admission medications Medication Sig Start Date End Date Taking? Authorizing Provider metoprolol succinate XL 25 mg 24 hr tablet Take 1 tablet by mouth every morning. 05/11/23 Yes Doctor Unassigned, [place] spironolactone 25 mg tablet Take 1 tablet by mouth in the morning and 1 tablet in the evening. 09/30/23 Yes Doctor Unassigned, [place] DULoxetine 30 mg capsule Take 1 capsule by mouth in the morning. Doctor Unassigned, [place] furosemide 20 mg tablet Take 1 tablet by mouth every morning and evening. Doctor Unassigned, [place] Lacosamide (VIMPAT) 100 mg tablet Take 1 tablet by mouth in the morning and 1 tablet in the evening. 12/11/22 Alfonso Alvarado, [place] methocarbamoL 500 mg tablet Take 2 tablets [...] 8 (eight) hours as needed. Doctor Unassigned, [place] pantoprazole 40 mg EC tablet Take 40 mg by mouth daily. Doctor Unassigned, [place] amLODIPine (NORVASC) 10 mg tablet Take 1 Tab by mouth daily. 09/20/15 Kylee Montez MD carvedilol (COREG) 6.25 mg tablet Take 1 Tab by mouth 2 (two) times daily with meals. 09/20/15 Kylee Montez MD lisinopril (PRINIVIL,ZESTRIL) 40 mg tablet Take 1 Tab by mouth daily. 09/20/15 Kylee Montez MD loratadine (CLARITIN LIQUI-GEL) 10 mg capsule Take by mouth daily. Doctor Unassigned, [place] MULTIVITAMIN ORAL Take 1 Tab by mouth daily. Doctor Unassigned, [place] omega-3 fatty acids-vitamin E (FISH OIL) 1,000 mg capsule Take 1 g by mouth daily. Doctor Unassigned, [place] Allergies Allergen Reactions Green Tea Other - See comments Seizures Diclofenac Hypertension Keppra [Levetiracetam] Other - See comments Makes seizures worse Past surgical history: Past Surgical History: Procedure Laterality Date ANTERIOR CERVICAL FUSION CHOLECYSTECTOMY HAND/FINGER SURGERY UNLISTED Bilateral 3 L hand, 3 R hand METATARSAL OSTEOTOMY Right 08/14/2015 Surgeon: Luis Jones Jr., [facility]; Location: [facility] OR [facility] TONSILLECTOMY Allergies: Allergies Allergen Reactions Green [...] Friends and Family: Not on file Attends Yazidi Services: Not on file Active Member of [...] Otherwise, Sonographically unremarkable right upper quadrant. RL: [id number] HS:Y CHEST PULMONARY ANGIOGRAM Result Date: 11/22/2023 [...] on TTE, currently on heparin gtt. Negative Baker Criteria. Blood cultures NGTD. Received cefepime 1 [...] referrals and/or communicating with other health healthcare sales representative (not separately reported), documenting clinical information in the electronic or other health record, and care coordination (not separately reported). 53 yo F with cardiogenic shock and PE Acute decompensated HFrEF NSTEMI Pulmonary embolism Polysubstance use LV thrombus COPD Elevated lactate- started on milrinone on 11/21 Continue milrinone Continue anticoagulation RHC/LHC today for BiV failure Cr Altamirano MD [facility] Cardiology 11/23/23 [facility] [employer] 2023-11-22 02:28:50 [facility] [place] H&P PCP: PATIENT DOES NOT HAVE A PCP Date of Service: 11/21/2023 CHIEF COMPLAINT: SOB History of Present Illness Heather Turner is a 53 year old female with a PMH significant for HFrEF (~35% 05/2023), HTN, Smoker, COPD, chronic low back pain, depression presenting from [facility] ED due to SOB. Pt states her home pulse ox was reading 86% and was having trouble catching her breath. Associated sx include PETERSON, orthopnea, CP that is substernal, pressure-like, and non radiating. She says the SOB started earlier today with productive cough. Denies fevers or chills. No recent sick contacts. States she was treated for pneumonia at [facility] 2 weeks ago with levaquin and prednisone [...] (chronic obstructive pulmonary disease) Diverticulitis Epilepsy Hypertension LA (myocardial infarction) 07/20/2007 Slipped disc Stomach cancer Substance abuse Marijuana daily-for anxiety Past Surgical History: Procedure Laterality Date ANTERIOR CERVICAL FUSION CHOLECYSTECTOMY HAND/FINGER SURGERY UNLISTED Bilateral 3 L hand, 3 R hand METATARSAL OSTEOTOMY Right 08/14/2015 Surgeon: Luis Jones Jr., ESTHER; Location: [facility] TONSILLECTOMY Family History Problem Relation Age of [...] Depakote - c/w flomax Pain UncontrolledTylenol and [place] Prophylaxis: DVT- heparin Stress Ulcer: pantoprazole Code [...] results to the patient. Ivis Mcdermott MD [facility] Department of Internal Medicine Division of Cardiovascular Disease [facility] - [facility] Procedure Notes Date/Time Note Provider Source 2023-11-23 15:17:41 Left Heart Cath/Coronary Angiography Date of Service: 11/23/2023 3:18 PM Indication/Diagnosis: heart failure Consent source: self Consent type: indications/complications discussed with patient/legal guardian; written consent obtained Time out completed: yes Aseptic technique: Chlorprep Local Anesthesia: 1% lidocaine without epinephrine Sedation: fentanyl 50 mcg, Versed 2 mg Access site: right radial artery, [facility] [place] 4.0 5fr 8 Fr IJ sheath [place] Closure Method: TR Band, manual pressure [...] was present for the entire procedure. [facility] Associated attestation - Cris Molina MD [...] of right sided failure. Cris Molina MD associate professor physician. Division of cardiovascular medicine [facility] IM-CARDIOVASCULAR DISEASE [facility]
[2024-07-17 11:15] LABS: Absolute Basophils 0.1 K/uL (0-0.5); Absolute Eosinophils 0.2 K/uL (0-0.5); Absolute Lymphocytes (CBC) 1.9 K/uL (0.7-4.9); Absolute Monocytes 0.4 K/uL (0.1-1.3); Absolute Neutrophil 4.7 K/uL (1.8-8.0); Basophils % 1.9 % (0-1.3); Eosinophils % 2.2 % (0-4.4); Hematocrit 40.7 % (36.0-45.0); Hemoglobin 12.9 g/dL (12.0-15.0); Lymphocytes % 26.3 % (15.3-44.8); MCH 27.6 pg (27.0-35.0); MCHC 31.6 g/dL (32.0-36.0); MCV 87.4 fL (80-100); Monocytes % 6.1 % (3.3-12.3); Neutrophils % 63.5 % (41.7-73.7); Platelets 572 thou/uL (152-406); RBC Red Blood Cell Count 4.66 M/uL (3.86-4.86); Red Cell Distribution Width 19.1 % (12.1-15.2)
--- NOTE | 2024-07-17 11:34 | RAD REPORT ---
EXAM: Chest Single View HISTORY: Chest pain;Dyspnea COMPARISON: 05/27/2024 FINDINGS: LUNGS/PLEURA: The lungs are clear. No pleural effusions or pneumothorax. No pulmonary edema. Calcifie d left upper lobe nodule. MEDIASTINUM: The mediastinal silhouette is within normal limits. CARDIAC: The cardiac silhouette is within normal limits. UPPER ABDOMEN: No significant abnormality. BONES: No acute abnormality. ACDF in the cervical spine. LINES/TUBES/OTHER: N/A IMPRESSION: No evidence of acute cardiopulmonary disease.
[2024-07-17] MEDS ORDERED: ONDANSETRON 4 MG/2 ML VIAL ONE ×2 (11:43→15:06)
[2024-07-17] MEDS ORDERED: MORPHINE 4 MG/ML SYR ONE ×2 (11:44→15:06)
--- NOTE | 2024-07-17 12:14 | RAD REPORT ---
EXAMINATION: US LOWER EXTREMITY VENOUS DOPPLER BILATERAL CLINICAL INDICATION: Female, 54 years old.PAIN TECHNIQUE: Complete bilateral duplex sonography of the lower extremity veins was performed. The exami nation included compression for vein patency, color Doppler imaging and flow augmentation in response to distal compression of the distal external iliac, common femoral, femoral, popliteal, dunia bita, tibial and great saphenous veins. [id number]. COMPARISON: No prior exams FINDINGS: Duplex sonography imaging demonstrates all deep examined to be fully compressible with spontaneous, p hasic and augmented flow bilaterally. IMPRESSION: No evidence of deep venous thrombosis seen in either lower extremity.
[2024-07-17 14:00] LABS: Troponin High Sensitivity 9.9 pg/mL (<58.9)
--- NOTE | 2024-07-17 14:52 | RAD REPORT ---
EXAMINATION: CTA CHEST PE CLINICAL INDICATION: Female, 54 years old. Chest pain;Dyspnea TECHNIQUE: This examination was performed according to an angiographic protocol with 3D post-processi ng. This involves 3D reconstructions, MIPs, volume rendered images and/or shaded surface rendering. One or more of the following dose reduction techniques were used: Automated exposure control, adjustm ent of the mA and/or kV according to patient size, and/or iterative reconstruction. Unless otherwise specified, incidental findings do not require dedicated imaging follow-up. [id number]. COMPARISON: 06/13/2024 FINDINGS: LOWER NECK: Visualized thyroid gland and soft tissues are normal. LUNGS AND AIRWAYS: Dependent atelectasis. Mild bronchial wall thickening.No suspicious and/or stable pulmonary nodules. PLEURA: No pleural effusion. No pneumothorax. Hemidiaphragms are normally positioned. MEDIASTINUM AND LYMPH NODES: No mediastinal mass or fluid collection. Normal size mediastinal, hilar, and axillary lymph nodes. THORACIC AORTA: No thoracic aortic aneurysm. Atherosclerotic changes are present. PULMONARY ARTERIES: Caliber is within normal limits. HEART: Normal heart size. Multivessel coronary artery diseaseNo significant pericardial effusion. OSSEOUS STRUCTURES AND CHEST WALL: No acute fracture. Hardware in the cervical spine. UPPER ABDOMEN: No significant abnormalities. IMPRESSION: No evidence of pulmonary emboli to the subsegmental level. Lungs are clear.
--- NOTE | 2024-07-17 15:06 | ER ---
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 EMS states: [facility]: No IV, no ll1 12 lead. aspirin 325 MG PO en route by EMS. 1 nitro .4 mg SL. BP elevated 190'2 systolic. Coronavirus screen: Client denies travel out of the [place] in the last 14 days. cough unrelated to allergies, Client presents with at least one sign or symptom that may indicate coronavirus-19. Standard/surgical mask placed on the client. Ebola Screen: Patient denies travel to an Ebola-affected area in the 21 days before illness onset. Initial Sepsis Screen: Does the patient meet any 2 criteria? No. Patient's initial sepsis screen is negative. Does the patient have a suspected source of infection? No. Patient's initial sepsis screen is negative. Risk Assessment: Do you want to hurt yourself or someone else? Patient reports no desire to harm self or others. Onset of symptoms was July 17, 2024. 10:40 Method Of Arrival: EMS: [facility] ll1 10:40 Acuity: ANDER 3 ll1 Triage Assessment: 10:44 General: Appears in no apparent distress. Behavior is calm, cooperative, appropriate ll1 for age. Pain: Complains of pain in chest Pain currently is 8 out of 10 on a pain scale. Quality of pain is described as pressure, Pain began 3 hours ago. Cardiovascular: Reports chest pain. Respiratory: Reports cough that is. 10:44 GI: Reports upper abdominal pain, nausea. 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 - Infectious Disease History:: Denies. - Social history:: Smoking status: Patient reports the use of cigarette tobacco products, smokes .75 packs per day. - Family history:: not pertinent. - Hospitalizations: : No recent hospitalization is reported. Screenin:53 [facility] ED Fall Risk Assessment (Adult) History of falling in the last 3 months, ll1 including since admission No falls in past 3 months (0 pts) Confusion or Disorientation No (0 pts) Intoxicated or Sedated No (0 pts) Impaired Gait No (0 pts) Mobility Assist Device Used No (0 pt) Altered Elimination No (0 pt) Score/Fall Risk Level 0 - 2 = Low Risk Maintained a safe environment, Hourly rounding (assess needs \T\ fall precautionary measures) done. Abuse screen: Denies threats or abuse. Nutritional screening: No deficits noted. Tuberculosis screening: No symptoms or risk factors identified. Assessment: 11:52 Pain: Pain does not radiate. ll1 12:26 Reassessment: Patient and/or family updated on plan of care and expected duration. Pain ll1 level reassessed. Charge nurse at trying to get IV. 12:48 Reassessment: No changes from previously documented assessment. Patient and/or family ll1 updated on plan of care and expected duration. Pain level reassessed. 13:08 Reassessment: No changes from previously documented assessment. cannot get recollect. ll1 14:09 Reassessment: Patient and/or family updated on plan of care and expected duration. Pain ll1 level reassessed. 15:03 Reassessment: No changes from previously documented assessment. Patient and/or family ll1 updated on plan of care and expected duration. Pain level reassessed. asked for more pain and nausea medicine. Dr. Parham informed. Vital Signs: 10:40 BP 160 / 96; Pulse 97; Resp 18; Temp 98; Pulse Ox 98% on R/A; Weight 90.72 kg; Height 5 ll1 ft. 3 in. ; Pain 8/10; 12:48 BP 163 / 93; Pulse 87; Resp 17; Pulse Ox 97% ; Pain 8/10; ll1 14:10 BP 152 / 88; Pulse 77; Resp 17; Pulse Ox 96% on R/A; ll1 15:48 BP 151 / 81; Pulse 76; Resp 17; Pulse Ox 96% on R/A; ll1 10:40 Body Mass Index 35.43 (90.72 kg, 160.02 cm) ll1 10:40 Pain Scale: Adult ll1 12:48 Pain Scale: Adult ll1 ED Course: 10:39 Patient arrived in ED. ll1 10:39 Arm band placed on Patient placed in an exam room, on a stretcher. ll1 10:40 Patient has correct armband on for positive identification. Bed in low position. ll1 Provided Education on: ER procedures and process. Client placed on continuous cardiac and pulse oximetry monitoring. NIBP monitoring applied. quality assurance monitor on. 10:44 Triage completed. ll1 10:44 Jones Parham MD is Attending Physician. rn 10:45 Yanelis Currie RN is Primary Nurse. ll1 10:45 EKG completed in triage. Results shown to MD. ll1 11:07 Initial lab(s) drawn, by me, sent to lab. Missed attempt(s): 22 gauge in right ll1 antecubital area. Bleeding controlled, band aid applied, catheter tip intact. 11:18 XRAY Chest (1 view) In Process Unspecified. EDMS 11:30 Notified Charge Nurse of need help getting IV access. ll1 11:30 No provider procedures requiring assistance completed. Missed attempt(s): 22 gauge in ll1 left antecubital area. Bleeding controlled, band aid applied, catheter tip intact. Patient maintains SpO2 saturation greater than 95% on room air. 12:12 Extrem Venous W Compression Yuriy US In Process Unspecified. EDMS 12:24 Radiology exam delayed due to IV insertion attempt and/or patient not having sm9 appropriate IV at this time. 12:44 Accessed peripheral vein via ultrasound, utilizing dynamic ultrasound technique using ss 20G Nexia IV catheter ,sterile technique, per hospital protocol. Clean \T\ dry. Dressing intact. Good blood return. Flushes easily. 14:39 CT Chest For PE Angio In Process Unspecified. EDMS 15:48 IV discontinued, intact, bleeding controlled, No redness/swelling at site. Pressure ll1 dressing applied. Administered Medications: 12:47 Drug: Ondansetron IVP 4 mg IVP once; over 2 minutes Route: IVP; Site: right antecubital;ll1 15:04 Follow up: Response: No adverse reaction; Nausea is decreased ll1 12:47 Drug: morphine IVP or IV 4 mg IVP once over 4 mins {Note: pain 8/10, RASS 0.} Route: ll1 IVP; Infused Over: 4 mins; Site: right antecubital; 15:04 Follow up: Response: No adverse reaction; Pain is decreased; RASS: Alert and Calm (0) ll1 15:12 Drug: morphine IVP or IV 4 mg IVP once over 4 mins {Note: pain 7/10 RASS 0.} Route: ss IVP; Infused Over: 4 mins; Site: right antecubital; 15:48 Follow up: Response: No adverse reaction; Pain is decreased; RASS: Alert and Calm (0) ll1 15:12 Drug: Ondansetron IVP 4 mg IVP once; over 2 minutes Route: IVP; Site: right antecubital;ss 15:48 Follow up: Response: No adverse reaction ll1 Medication: 11:52 VIS not applicable for this client. ll1 Outcome: 15:05 Discharge ordered by . rn 15:49 Patient left the ED. ll1 15:49 Discharged to home via wheelchair, ll1 15:49 Condition: stable 15:49 Discharge instructions given to patient, Instructed on discharge instructions, follow up and referral plans. Demonstrated understanding of instructions, follow-up care, Signatures: Dispatcher [employer] EDJones Mane MD MD rn Blanchard, Shelby, RN RN ss Lewis, Lynsay, RN RN [facility] Zeinab Rahman 9 Corrections: (The following items were deleted from the chart) 10:45 10:44 General: Appears in no apparent distress. Behavior is calm, cooperative, ll1 appropriate for age, ll1
--- NOTE | 2024-07-17 15:06 | EDPHYS ---
Physician Documentation [facility] Name: Heather Coon Age: 54 yrs Sex: Female : 1970 Arrival Date: 07/17/2024 Time: 10:32 Bed 17 Private MD: ED Physician Jones Parham HPI: 07/17 11:29 This 54 yrs old Female presents to ER via EMS with complaints of Chest Pain. rn 11:29 The patient or guardian reports chest pain that is located primarily in the substernal rn area. 11:30 Onset: this morning. The pain does not radiate. Associated signs and symptoms: rn Pertinent positives: shortness of breath, Pertinent negatives: abdominal pain, cough, diaphoresis, syncope, vomiting. The chest pain is described as aching. Modifying factors: The symptoms are alleviated by nothing. the symptoms are aggravated by nothing. Severity of pain: At its worst the pain was moderate in the emergency department the pain has improved. The patient has experienced similar episodes in the past. Patient reports chest pain, substernal, nonradiating, associated with shortness of breath, worse with exertion that began this morning. Denies previous CAD or stents. Does have history of COPD and anxiety.. 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 - Infectious Disease History:: Denies. - Social history:: Smoking status: Patient reports the use of cigarette tobacco products, smokes .75 packs per day. - Family history:: not pertinent. - Hospitalizations: : No recent hospitalization is reported. ROS: 11:30 Constitutional: Negative for fever, chills, and weight loss, Cardiovascular: Negative rn for palpitations, and edema, Respiratory: Negative for wheezing, and pleuritic chest pain, Abdomen/GI: Negative for abdominal pain, nausea, vomiting, diarrhea, and constipation, Back: Negative for injury and pain, MS/Extremity: Negative for injury and deformity, Skin: Negative for injury, rash, and discoloration, Neuro: Negative for headache, weakness, numbness, tingling, and seizure, Exam: 11:30 Constitutional: This is a well developed, well nourished patient who is awake, alert, rn and in no acute distress. Head/Face: Normocephalic, atraumatic. Cardiovascular: Regular rate and rhythm. No pulse deficits. Respiratory: Speaking full sentences, unlabored. No increased work of breathing, no retractions or nasal flaring. Abdomen/GI: Soft, non-tender Skin: No cyanosis MS/ Extremity: Pulses equal, no cyanosis. Neuro: Awake and alert, GCS 15 11:47 ECG was reviewed by the Attending Physician. rn Vital Signs: 10:40 BP 160 / 96; Pulse 97; Resp 18; Temp 98; Pulse Ox 98% on R/A; Weight 90.72 kg; Height 5 ll1 ft. 3 in. ; Pain 8/10; 12:48 BP 163 / 93; Pulse 87; Resp 17; Pulse Ox 97% ; Pain 8/10; ll1 14:10 BP 152 / 88; Pulse 77; Resp 17; Pulse Ox 96% on R/A; ll1 15:48 BP 151 / 81; Pulse 76; Resp 17; Pulse Ox 96% on R/A; ll1 10:40 Body Mass Index 35.43 (90.72 kg, 160.02 cm) ll1 10:40 Pain Scale: Adult ll1 12:48 Pain Scale: Adult ll1 MDM: 10:44 Medical Screening Exam initiated rn 15:04 Differential diagnosis: acute myocardial infarction, acute pericarditis, anxiety, rn coronary artery disease chest wall pain, costochondritis, gastroesophageal reflux disease (GERD), pleurisy, pneumonia, pneumothorax, pulmonary embolus. Data reviewed: vital signs, nurses notes, lab test result(s), EKG, radiologic studies, CT scan, plain films, and as a result, I will discharge patient. Counseling: I had a detailed discussion with the patient and/or guardian regarding the historical points, exam findings, and any diagnostic results supporting the discharge/admit diagnosis, lab results, radiology results, the need for outpatient follow up, to return to the emergency department if symptoms worsen or persist or if there are any questions or concerns that arise at home. Special discussion: Based on the patient's history, exam, and Dx evaluation, there is no indication for emergent intervention or inpatient Tx. It is understood by the patient/guardian that if the Sx's persist or worsen they need to return immediately for re-evaluation. I discussed with the patient/guardian in detail that at this point there is no indication for admission to the hospital. It is understood, however, that if the symptoms persist or worsen the patient needs to return immediately for re-evaluation. 07/17 10:57 Order name: Basic Metabolic Panel; Complete Time: 14:08 rn 07/17 10:57 Order name: CBC with Diff; Complete Time: 11: rn 07/17 10:57 Order name: NT PRO-BNP; Complete Time: 14:08 rn 07/17 10:57 Order name: Troponin HS; Complete Time: 14:08 rn 07/17 10:57 Order name: XRAY Chest (1 view); Complete Time: 11: rn 07/17 11:07 Order name: CT Chest For PE Angio; Complete Time: 14:59 rn 07/17 11:07 Order name: Extrem Venous W Compression Yuriy US; Complete Time: 13:15 rn 07/17 10:57 Order name: Cardiac monitoring; Complete Time: 10:57 rn 07/17 10:57 Order name: EKG - Nurse/Tech; Complete Time: 10:57 rn 07/17 10:57 Order name: IV Saline Lock; Complete Time: 11: rn 07/17 10:57 Order name: Labs collected and sent; Complete Time: 11: rn 07/17 10:57 Order name: O2 Per Protocol; Complete Time: 10:57 rn 07/17 10:57 Order name: O2 Sat Monitoring; Complete Time: : rn 07/17 12:57 Order name: Labs - recollect needed: recollect chemistries again. hemolyzed per Karen; eb Complete Time: 13:01 EC:47 Rate is 92 beats/min. Rhythm is regular. QRS [place] is Normal. ME interval is normal. QRS rn interval is normal. QT interval is normal. No Q waves. T waves are Normal. No ST changes noted. Clinical impression: NSR w/ Non-specific ST/T Changes. Interpreted by me. Reviewed by me. Administered Medications: 12:47 Drug: Ondansetron IVP 4 mg IVP once; over 2 minutes Route: IVP; Site: right antecubital;ll1 15:04 Follow up: Response: No adverse reaction; Nausea is decreased ll1 12:47 Drug: morphine IVP or IV 4 mg IVP once over 4 mins {Note: pain 8/10, RASS 0.} Route: ll1 IVP; Infused Over: 4 mins; Site: right antecubital; 15:04 Follow up: Response: No adverse reaction; Pain is decreased; RASS: Alert and Calm (0) ll1 15:12 Drug: morphine IVP or IV 4 mg IVP once over 4 mins {Note: pain 7/10 RASS 0.} Route: ss IVP; Infused Over: 4 mins; Site: right antecubital; 15:48 Follow up: Response: No adverse reaction; Pain is decreased; RASS: Alert and Calm (0) ll1 15:12 Drug: Ondansetron IVP 4 mg IVP once; over 2 minutes Route: IVP; Site: right antecubital;ss 15:48 Follow up: Response: No adverse reaction ll1 Disposition Summary: 07/17/24 15:05 Discharge Ordered Notes: Location: Home rn Problem: new rn Symptoms: have improved rn Condition: Stable rn Diagnosis - Chest pain, unspecified rn Followup: rn - With: Private Physician - When: As needed - Reason: Recheck today's complaints, Re-evaluation by your physician Discharge Instructions: - Discharge Summary Sheet rn - Nonspecific Chest Pain, Adult rn Forms: - Medication Reconciliation Form rn - 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 EDMS EDMS
[2024-07-17 15:54] VITALS: TEMP 98
[2024-07-17 15:57] VITALS: O2SAT 96
[2024-07-17 15:58] VITALS: BP 151/81
--- NOTE | 2024-07-18 11:11 | EKG ---
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
== END 2024-07-17 15:49 | disposition home or self-care (01) ==
LOC: ER 10:32
DX: R07.9 Chest pain, unspecified (principal); J44.9 Chronic obstructive pulmonary disease, unspecified; I10 Essential (primary) hypertension; F17.210 Nicotine dependence, cigarettes, uncomplicated
CPT/HCPCS: 93005; 85025; 80048; 36415; 84484; 83880; 71275; 71045; 93970; 96375; 96374; 99285; Q9967; J2405 ×2

== ENCOUNTER 2024-08-29 00:39 | Emergency (ER) | payer OTHER ==
--- OUTSIDE RECORDS SUMMARY | 2024-08-29 01:05 | XMS REPORT | Continuity of Care Document ---
Author Name Unknown Address [address] [facility] [place] [address] [facility] thconnect Address [address] 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 Name Role Phone Pcp, Pcp Primary Care Physician Unavailab PANKAJ Cook Attending Clinician Un available AYDEE GO Attending Clinician Unavailable MARIANELA BURGESS Attending Clinician Unavailab ADAM Cabrera Attending Clinician Unavailable THOMAS LOZOYA Attending Clinician Nina vailable MARIAH ALDRIDGE Attending Clinician Unavailable Brooklynn Paige MD Attending Clinician [phone] Sabra ELIZONDO, Wendi Attending Clinician [phone] WENDI DICK Attending Clinician Unavailable System, Provider Not In Attending Clinician Unav ailable GUSTAVO DELANEY Attending Clinician Unavailable CHRISSY MOHR Attending Clinician Unavailable CHRISSY MOHR Attending Clinician Unavailable Chrissy Mohr DO Attending Clinician [phone] MD GERRY Attending Clinician Unavailab le Doctor Unassigned, [place] Attending Clinician U MORALES Matamoros Attending Clinician Unavailab RADHA Vargas Attending Clinician Unavailable RADHA WYATT Attending Clinician Unavailable Gerardo CAMPOS, Veronique Olviia Attending Clinician [phone] DARRICK ALTAMIRANO. Attending Clinician Unavailabl Olena Bob NP Attending Clinician [phone] Alfonso Lopez Attending Clinician [phone] Darrick Altamirano MD. Attending Clinician [phone] Morena CAMPOS, Jodi Gonzalez Attending Clinician Unavail able TAL BENAVIDEZ Attending Clinician Unavailable Mj Bryan DO Attending Clinician +[phone] Tal Benavidez MD Attending Clinician [phone] MOJGAN SIMENTAL Attending Clinician Unav ailable Connor Donaldson MD Attending Clinician + [phone] Mojgan Simental MD Attending Clinician + Madeline Mckinley RN Attending Clinician Unavailab MADELINE Edwards Attending Clinician Unavailable MADELINE PIERRE Attending Clinician Unavailable Megan Rondon MD Attending Clinician [phone] Altamirano MD Attending Clinician [phone] Lorenzo Ventura MD, Ivis Attending Clinician +[phone] Ryder Vaca MD Attending Clinici an AARON LEDESMA Attending Clinician Unavailable Tracy ELIZONDO, Cris Attending Clinician [phone] EFRA BABCOCK Attending Clinician Un available MYLA MIJARES Attending Clinician Unavailable JUANY GREEN Attending Clinician Unavailable PROVIDER, CAMPAIGNS Attending Clinician Unavaila SIDDHARTH Kaye Attending Clinician UnavailMARGOT Dexter Attending Clinician Unavailable SARAI JULES Attending Clinician Unavaila YONATAN Juarez Attending Clinician Unamario ilEDWARD Arreola Attending Clinician Unavailable Nir ELIZONDO, [place] Olivia Attending Clinician Unavailab monroe Obregon MD, Pankaj Attending Clinician [phone] Edward Altamirano DO Attending Clinician [phone] Bud ELIZONDO, Edward Attending Clinician [phone] DEMETRIUS TOBAR Attending Clinician Unavailab QUIN Armenta Attending Clinician Unavail able Kael BELTRAN, Quin Stewart Attending Clinician [phone] MJ BRYAN Attending Clinician Unavailable Provider, Not In System Attending Clinician Unav arianna Burgess MD, Marianela Hamilton Attending Clinician [phone] Aydee Go MD Attending Clinician [phone] Dallas Gomez Attending Clinician [phone] Adam Garcia MD Attending Clinician [phone] Mercedez ELIZONDO, Harry Attending Clinician +[phone] Rocael ELIZONDO, Antwon Attending Clinician Unavailab Yue Booth MD Attending Clinician [phone] Connie Davey MD Attending Clinician +[phone] Mariah Aldridge MD Attending Clinician +[phone] Devora ELIZONDO, Thomas Reddy Attending Clinician + [phone] CONNIE DAVEY Attending Clinician UnavailAlfonso Oh Attending Clinician Unavailable RITCHIE WARREN Attending Clinician Unavailable Ritchie Warren MD Attending Clinician [phone] Rk CAMPOS, Margot Stoner Attending Clinician [phone] PARRISH WHEATLEY Attending Clinician Unavaila yaya Mendoza MD, Halima Hummel Attending Clinician [phone] Ning Geller MD Attending Clinician [phone] Roxi ELIZONDO, Parrish Reyez Attending Clinici an DAMI LOWRY Attending Clinician Unavailable Essence ELIZONDO, Dami Attending Clinician [phone] Maria Teresa Nicole LVN Attending Clinician [phone] CHANTEL BOJORQUEZ Attending Clinician CHANTEL Kelly Attending Clinician Jack Ibrahim MD, Brandyn Otoole Attending Clinician [phone] SELINA MARTINES Attending Clinician Unavailable Sapna Vargas DO Attending Clinician + [phone] Tyrel ELIZONDO, Glory Katz Attending Clinician + Selina Martines MD Attending Clinician [phone] Vaccine, [place] Pedi Attending Clinician U chelsi Pak MD, Jose Attending Clinician [phone] JOSE PAK Attending Clinician Unavailable WILLIAMS VIRK Attending Clinician Unavaila yaya Virk COMPUTATIONAL SCIENCES PROFESSOR, Folushtavo F Attending Clinician [phone] Miky Nava RN Attending Clinician Unavailab monroe Chakraborty COMPUTATIONAL SCIENCES PROFESSOR, Shinta Attending Clinician [phone] Ebpenelope COMPUTATIONAL SCIENCES PROFESSOR, Rania Attending Clinician [phone] Unknown, Attending Attending Clinician Unavailab le UNKNOWN, ATTENDING Attending Clinician Unavailab Estefania Berg Attending Clinician [phone] Yehuda Arcos MD Attending Clinician +[phone] PANKAJ BOREGON Admitting Clinician Un available MARIANELA BURGESS Admitting Clinician Unavailab ADAM Cabrera Admitting Clinician Unavailable MARIAH ALDRIDGE Admitting Clinician Unavailable CHRISSY MOHR Admitting Clinician Unavailable RADHA WYATT Admitting Clinician Unavailable DARRICK ALTAMIRANO Admitting Clinician UnavailDarrick [place] MD Admitting Clinician TAL BENAVIDEZ Admitting Clinician Unavailable Tal Benavidez MD Admitting Clinician MOJGAN SIMENTAL Admitting Clinician Unav ailable Mojgan Simental MD Admitting Clinician + CR ALTAMIRANO Admitting Clinician Unavailable CONNIE DAVEY Admitting Clinician UnavailAlfonso Oh Admitting Clinician Unavailable RITCHIE WARREN Admitting Clinician Unavailable NING GELLER Admitting Clinician Unavaila ble DAMI LOWRY Admitting Clinician Unavailable Dami Lowry MD Admitting Clinician [phone] BRANDYN IBRAHIM Admitting Clinician Unavailable Brandyn Ibrahim MD Admitting Clinician +[phone] GLORY ESTEVES Admitting Clinician Unav ailable WILLIAMS VIRK Admitting Clinician Unavaila yaya Payers Payer Name Policy Type Policy Number Effective Date Expirati on Date Source [facility] CYNTHIA VORA [id number] 2023 00:00:00 AMBVENKATR [id number] 2023 00:00:00 [facility] Valentin/ CYNTHIA VELASQUEZ [id number] 2023 00:00:00 2023 00:00:00 [facility] SESAR SEVILLA COPAY FOCUS 9 [id number] 2023 00:00:00 MEDICAID PENDING PENDING 2022 00:00:00 Problems Condition Name Condition Details Condition Category Status Onset Date Resolution Date Last Treatment Date Treating Clinician Comments Source Seizure Seizure Disease Active 08-10 00:00: 00 [facility] Subdural hemorrhage Subdural hemorrhage Disease Active 08-10 00:00: 00 [facility] 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 systolic and diastolic congestive heart failure Disease Active 01-09 00:00: [address] [facility] Hypotensio n Hypotensio n Disease Active 01-08 00:00: 00 [facility] LV (left ventricula r) mural thrombus LV (left ventricula r) mural thrombus Disease Active 12-14 00:00: [address] [facility] Pulmonary hypertensi on Pulmonary hypertensi on Disease Active 12-14 00:00: [address] [facility] Shortness of breath Shortness of breath Disease Active 12-13 00:00: 00 [facility] Other chest pain Other chest pain Disease Active 12-01 00:00: 00 [facility] Depression Depression Disease Active 09-29 00:00: 00 Cynthia Garcia - Kaceya raul Anxiety Anxiety Disease Active 09-29 00:00: 00 Cynthia Garcia - Kaceya raul CAD (coronary artery disease) CAD (coronary artery disease) Disease Active 09-29 00:00: 00 Cynthia Garcia - Externa raul COPD (chronic obstructiv e pulmonary disease) (multi HCC) COPD (chronic obstructiv e pulmonary disease) (multi HCC) Disease Active 09-29 00:00: 00 Cynthia Garcia - Externa raul History of colon polyps History of colon polyps Disease Active 09-29 00:00: 00 Cynthia Garcia - Externa raul Marijuana use Marijuana use Disease Active 09-29 00:00: 00 Cynthia Garcia - Externa raul Seizure (multi HCC) Seizure (multi HCC) Disease Active 09-29 00:00: 00 Cynthia Garcia - Externa raul Tobacco use Tobacco use Disease Active 09-29 00:00: 00 Cynthia Garcia - Externa raul Type 2 diabetes mellitus with hyperglyce ortega, without long-term current use of insulin (multi HCC) Type 2 diabetes mellitus with hyperglyce ortega, without long-term current use of insulin (multi HCC) Disease Active 09-11 00:00: 00 Cynthia Seybold - Externa l CHF (congestiv e heart failure) (multi HCC) CHF (congestiv e heart failure) (multi HCC) Disease Active 09-11 00:00: 00 Cynthia Garcia - Externa l Bipolar disorder (multi HCC) Bipolar disorder (multi HCC) Disease Active 09-11 00:00: 00 Cynthia Garcia - Externa l Seizure disorder (multi HCC) Seizure disorder (multi HCC) Disease Active 09-11 00:00: 00 Cynthia Garcia - Externa l Prediabete s Prediabete s Disease Active 09-11 00:00: 00 Cynthia Garcia - Externa l Bilateral leg weakness Bilateral leg weakness Disease Active 2022-07 00:00: 00 [facility] Bilateral leg weakness Bilateral leg weakness Disease Active 2022-07 00:00: 00 [facility] Pneumonia Pneumonia Disease Active 2022-07 00:00: 00 [facility] Cavitary lesion of lung Cavitary lesion of lung Disease Active 2022-07 00:00: 00 [facility] Cervical myelopathy Cervical myelopathy Disease Recurre nce 2022-07 00:00: 00 [facility] Cervical disc disorder with myelopathy , high cervical region Cervical disc disorder with myelopathy , high cervical region Disease Active 2022-07 00:00: 00 [facility] Cord compressio n Cord compressio n Disease Recurre nce - 00:00: 00 [facility] Cauda equina compressio n Cauda equina compressio n Disease Active 03-30 00:00: 00 [facility] Seizure Seizure Disease Recurre nce - 00:00: 00 [facility] Cardiomyop athy Cardiomyop athy Disease Active 08-01 00:00: 00 [facility] NSVT (nonsustai keisha ventricula r tachycardi a) NSVT (nonsustai keisha ventricula r tachycardi a) Disease Active 08-01 00:00: 00 [facility] Elevated brain natriureti c peptide (BNP) level Elevated brain natriureti c peptide (BNP) level Disease Active 07-31 00:00: 00 [facility] Chest pain, unspecifie d type Chest pain, unspecifie d type Disease Active 07-31 00:00: 00 [facility] Elevated brain natriureti c peptide (BNP) level Elevated brain natriureti c peptide (BNP) level Disease Active 07-31 00:00: 00 [facility] Coronary artery disease involving [place] [...] [facility] Coronary artery disease involving [place] coronary artery of [place] heart without angina pectoris Coronary artery disease involving [place] coronary artery of [place] heart without angina pectoris Disease Active 07-31 00:00: 00 [facility] Chronic bilateral low back pain with bilateral sciatica Chronic bilateral low back pain with bilateral sciatica Disease Active 2021-07 0-17 00:00: 00 [facility] 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 Neuroforam inal stenosis of lumbar spine Neuroforam inal stenosis of lumbar spine Disease Active 09-27 00:00: [address] [facility] Bilateral acute otitis media, recurrence not specified, unspecifie d otitis media type Bilateral acute otitis media, recurrence not specified, unspecifie d otitis media type Disease Active 09-27 00:00: [address] [facility] Lumbar spinal stenosis Lumbar spinal stenosis Disease Active 09-27 00:00: [address] [facility] Right-side d low back pain with sciatica, sciatica laterality unspecifie d Right-side d low back pain with sciatica, sciatica laterality unspecifie d Disease Active 09-27 00:00: [address] [facility] Generalize d anxiety disorder Generalize d anxiety disorder Disease Active 09-27 00:00: [address] [facility] Agoraphobi a Agoraphobi a Disease Active 09-27 00:00: [address] [facility] Bipolar disorder, in partial remission, most recent episode manic Bipolar disorder, in partial remission, most recent episode manic Disease Active 09-27 00:00: [address] [facility] Obsessive compulsive disorder Obsessive compulsive disorder Disease Active 09-27 00:00: [address] [facility] Breast mass, left Breast mass, left Disease Active 09-17 00:00: [address] [facility] Anxiety Anxiety Disease Active 09-17 00:00: [address] [facility] Lower back pain Lower back pain Disease Active 09-17 00:00: [address] [facility] High blood pressure High blood pressure Disease Active 09-17 00:00: [address] [facility] COPD (chronic obstructiv e pulmonary disease) COPD (chronic obstructiv e pulmonary disease) Disease Active 09-17 00:00: [address] [facility] Obesity Obesity Disease Active 09-17 00:00: [address] [facility] Breast pain Breast pain Disease Resolve d 09-17 00:00: 00 2015-09-18 00:00:00 2015-09-18 13:19:09 [facility] Allergies, Adverse Reactions, Alerts Allergy Name Allergy Type Status Severity Reaction(s) Onset Date Inactive Date Treating Clinician Comments Source Levetira cetam Propensi ty to adverse reaction s Active 1-22 00:00: 00 [facility] Fluoxeti ne Propensi ty to adverse reaction s Active - 00:00: 00 [facility] Green Tea Drug Allergy Active Other (See Comments) - 00:00: 00 Seizure like activity [facility] Levetira cetam Drug Allergy Active Nausea And Vomiting - 00:00: 00 Intensifi es seizure [facility] FLUOXETI NE Allergy Active - 00:00: 00 [facility] GREEN TEA Allergy Active High Other 9- 00:00: 00 [facility] LEVETIRA CETAM Allergy Active High N\\T\\V 9- 00:00: 00 [facility] Green Tea Propensi ty to adverse reaction s Active - 00:00: 00 Seizure like activity [facility] Levetira cetam Propensi ty to adverse reaction s Active Nausea And Vomiting 9- 00:00: 00 Intensifi es seizure [facility] LEVETIRA CETAM DRUG INGREDI Active Other-Cmnt 11-17 00:00: [address] [facility] Levetira cetam Propensi ty to adverse reaction s Active Other - See comments 11-17 00:00: 00 Makes seizures worse [facility] Levetira cetam Propensi ty to adverse reaction s Active Other 11-17 00:00: 00 Intensifi es seizure Makes seizures worse Makes seizures worse Intensifi es seizure Cynthia Seybold - Externa l FLUOXETI NE Allergy Active Med Rash 1-14 00:00: 00 [facility] Fluoxeti ne Propensi ty to adverse reaction s Active Rash 08-02 00:00: 00 [facility] Green Tea Propensi ty to adverse reaction s Active 08-02 00:00: 00 [facility] GREEN TEA Allergy Active 08-02 00:00: 00 [facility] Fluoxeti ne Propensi ty to adverse reaction s Active Unknown - See comments 03-25 00:00: [address] [facility] FLUOXETI NE DRUG INGREDI Active Unknown-Cmnt 03-25 00:00: [address] [facility] DICLOFEN AC DRUG INGREDI Active HYPERTENSION 11-20 00:00: [address] [facility] Diclofen ac Propensi ty to adverse reaction s Active Anxiety 11-20 00:00: 00 Cynthia Garcia - Externa l GREEN TEA DRUG INGREDI Active Med Other-Cmnt 08-10 00:00: [address] [facility] Green Tea Propensi ty to adverse reaction s to drug Active Other - See comments 08-10 00:00: [address] [facility] Green Tea Propensi ty to adverse reaction s Active Anxiety 08-10 00:00: 00 Seizure like activity Seizures Seizures Seizure like activity Cynthia Bedoyaold - Externa l FLUOXETI NE HCL DRUG INGREDI Active Hives 03-19 00:00: 00 [facility] Fluoxeti ne Hcl Propensi ty to adverse reaction s Active Hives 03-19 00:00: 00 [facility] Family History Family Member Diagnosis Comments Start Date Stop Date Sourc e Natural mother Alcohol abuse [facility] Natural mother Cancer [facility] Natural mother Diabetes [facility] Natural mother Heart disease [facility] Natural mother Hyperlipidemia [facility] Natural mother Kidney disease [facility] Natural mother Stroke [facility] Natural mother Alcohol abuse [facility] Natural mother Stroke [facility] Paternal uncle Diabetes [facility] Social History Social Habit Start Date Stop Date Quantity Comments Source Gender identity Jeffrey margarita Bolaños Epic History SDOH Alcohol Frequency [facility] History SDOH Alcohol Std Drinks [facility] History SDOH Alcohol Binge [facility] History SDOH Housing Homeless Last Year [facility] History of tobacco use Passive smoker [facility] History SDOH Social Connections Get Together [facility] History SDOH Social Connections [facility] History SDOH Social Connections Membership [facility] History SDOH Social Connections Meetings [facility] ASSERTION Not [facility] Sexual orientation [facility] Alcohol intake 2023-09-30 00:00:00 2023-09-30 00:00:00 .57 /d Cynthia Garcia - External Education - What is the highest level of school you have completed or the highest degree you have received? 2023-09-30 00:00:00 2023-09-30 00:00:00 GED or equivalent Cynthia Garcia - External History of Social function 2023-08-03 00:00:00 2023-08-03 00:00:00 [facility] Alcoholic beverage intake 2023-06-02 00:00:00 2023-06-02 00:00:00 Current drinker of alcohol (finding) [facility] Exposure to SARS-CoV-2 (event) 2023-05-18 00:00:00 2023-05-28 07:28:00 Not sure [facility] History SDOH Housing Unable to Pay - In the last 12 months, was there a time when you were not able to pay the mortgage or rent on time? 2023-05-26 00:00:00 2023-05-26 00:00:00 Yes [facility] Cigarettes smoked current (pack per day) - Reported 2023-05-26 00:00:00 2023-05-26 00:00:00 [facility] Cigarette pack-years 2023-05-26 00:00:00 2023-05-26 00:00:00 [facility] Tobacco use and exposure 2023-05-26 00:00:00 2023-05-26 00:00:00 Smokeless tobacco non-user [facility] History SDOH Housing Places Lived 2023-03-30 00:00:00 2023-03-30 00:00:00 1 [facility] Alcohol Comment 2023-03-29 00:00:00 2023-03-29 00:00:00 2x a week [facility] History SDOH Social Connections Phone 2022-08-01 00:00:00 2022-08-01 00:00:00 5 [facility] History SDOH Social Connections Living 2022-08-01 00:00:00 2022-08-01 00:00:00 5 [facility] History SDOH Physical Activity DPW 2022-08-01 00:00:00 2022-08-01 00:00:00 0 [facility] History SDOH Physical Activity MPS 2022-08-01 00:00:00 2022-08-01 00:00:00 0 [facility] History SDOH Financial 2022-08-01 00:00:00 2022-08-01 00:00:00 3 [facility] History SDOH Food Worry 2022-08-01 00:00:00 2022-08-01 00:00:00 1 [facility] History SDOH Food Scarcity 2022-08-01 00:00:00 2022-08-01 00:00:00 1 [facility] History SDOH Transport Med 2022-08-01 00:00:00 2022-08-01 00:00:00 2 [facility] History SDOH Transport Non-Med 2022-08-01 00:00:00 2022-08-01 00:00:00 2 [facility] Sex assigned at 1970 00:00:00 1970 00:00:00 [facility] Smoking Status Start Date Stop Date Source Tobacco smoking consumption unknown [facility] Smokes tobacco daily 2023-11-25 00:00:00 [facility] Never smoked tobacco Cynthia Garcia - External Ex-smoker 2023-05-26 00:00:00 2023-05-26 00:00:00 [facility] Medications Ordered Medication Name Filled Medication Name Start Date Stop Date Current Medication? Ordering Clinician Indication Dosage Frequency Signature (SIG) Comments Components Source gabapentin (Neurontin) capsule 300 mg gabapentin (Neurontin) capsule 300 mg 08-10 14:55: 00 Yes 300mg 300 mg, Oral, Once, On Thu08/10/24 at 1455, For 1 dose [facility] methocarbam ol (Robaxin) tablet 1,500 mg methocarbam ol (Robaxin) tablet 1,500 mg 08-10 14:55: 00 Yes 1500mg 1,500 mg, Oral, Once, On Thu08/10/24 at 1455, For 1 dose [facility] Epic acetaminoph en (Tylenol) tablet 650 mg acetaminoph en (Tylenol) tablet 650 mg 08-10 14:55: 00 08-10 15:04 :00 No 650mg 650 mg, Oral, Once, On Thu08/10/24 at 1455, For 1 dose, Max acetaminop hen = 4000mg/day (4gm/day) [facility] HYDROcodone -acetaminop hen ([place]) 5-325 MG per tablet 1 tablet HYDROcodone -acetaminop hen ([place]so) 5-325 MG per tablet 1 tablet 08-10 10:10: 00 08-10 10:42 :00 No 1{tbl} 1 tablet, Oral, Once, On Thu08/10/24 at 1010, For 1 dose [facility] lidocaine 4 % patch 1 patch lidocaine 4 % patch 1 patch 08-10 09:25: 00 Yes 1{patch } 1 patch, Apply externally , Administer over 12 Hours, Once, On Thu08/10/24 at 0925, For 1 dose, Patch is applied to intact skin to cover painful area for up to 12 hours in a 24-hour period (12 hours on and 12 hours off). Apply to skin Remove old patch before applicatio n of new patch. [facility] thiamine (Vitamin B1) injection 500 mg thiamine (Vitamin B1) injection 500 mg 08-10 05:55: 00 08-10 07:11 :00 No 500mg 500 mg, Intravenou s, Once, On Thu08/10/24 at 0555, For 1 dose, Administer by slow IV Push over 1-2 minutes [facility] Epic ondansetron (Zofran) injection 4 mg ondansetron (Zofran) injection 4 mg 08-10 05:55: 00 08-10 06:02 :00 No 4mg 4 mg, Intravenou s, Once, On Thu08/10/24 at 0555, For 1 dose Membrenda Bolaños Epic PHENobarbit al (Luminal) injection 130 mg PHENobarbit al (Luminal) injection 130 mg 08-10 05:40: 00 08-10 06:00 :00 No 130mg 130 mg, Intravenou s, Once, On Thu08/10/24 at 0540, For 1 dose, Administer no faster than 1 mg/kg/jorge te, to a max of 60 mg/min in adults. [facility] LORazepam (Ativan) injection 1 mg LORazepam (Ativan) injection 1 mg 08-10 05:40: 00 08-10 06:02 :00 No 1mg 1 mg, Intravenou s, Once, On Thu08/10/24 at 0540, For 1 dose [facility] divalproex (Depakote) 500 MG EC tablet divalproex (Depakote) 500 MG EC tablet 08-10 00:00: 00 08-10 23:59 :00 No 1000mg Q.5D Take 2 tablets by mouth in the morning and 2 tablets in the evening. Do not crush, chew, or split.. Blade Hare gabapentin (Neurontin) 300 MG capsule gabapentin (Neurontin) 300 MG capsule 08-10 00:00: 00 09-09 23:59 :00 No 300mg [id number] 3D Take 1 capsule by mouth in the morning and 1 capsule at noon and 1 capsule in the evening. [facility] cefpodoxime (Vantin) 200 MG tablet cefpodoxime (Vantin) 200 MG tablet 08-10 00:00: 00 08-20 23:59 :00 No 200mg Q.5D Take 1 tablet by mouth in the morning and 1 tablet in the evening. Do all this for 10 days. [facility] methocarbam ol (Robaxin) 750 MG tablet methocarbam ol (Robaxin) 750 MG tablet 1- 00:00: 00 08-20 23:59 :00 No 750mg Q.5D Take 1 tablet by mouth in the morning and 1 tablet in the evening. Do all this for 10 days. [facility] H[facility] acetaminoph en (OFIRMEV) IV piggyback 1,000 mg 04-03 04:30: 00 04-03 04:04 :00 No 1000mg 1,000 mg, IV Piggyback, at 400 mL/hr Administer over 15 Minutes, ONCE, 1 dose, On 04/02/24 at 2330, MICHAEL, Is the patient strict NPO and unable to tolerate oral medication s? Yes [facility] valproate (DEPACON) 500 mg in D5W piggyback 04-03 03:30: 00 04-03 04:49 :00 No 500mg 500 mg, IV Piggyback, ONCE NOW, 1 dose, On 04/02/24 at 2245, Administer over 30 Minutes, 100 mL [facility] divalproex (DEPAKOTE) delayed release tablet 250 mg 04-03 03:15: 00 04-03 04:07 :00 No 250mg 250 mg, Oral, ONCE NOW, 1 dose, On 04/02/24 at 2215, MICHAEL [facility] ondansetron (ZOFRAN (PF)) injection 4 mg 04-03 02:30: 00 04-03 04:58 :00 No 4mg 4 mg, Slow IV Push, ONCE, 1 dose, On 04/02/24 at 2130, MICHAEL [facility] morpHINE (4 mg/mL) injection 4 mg 04-03 02:30: 00 04-03 04:58 :00 No 4mg 4 mg, Slow IV Push, ONCE, 1 dose, On 04/02/24 at 2130, STAT [facility] divalproex ER 500 mg 24 hr tablet 04-03 00:00: 00 Yes [id number] 1000mg Take 2 tablets by mouth every 12 (twelve) hours. [facility] KCL 20 mEq tablet 04-03 00:00: 00 04-09 04:59 :00 No [id number] 40meq Take 2 tablets by mouth in the morning for 5 days. [facility] LORazepam (ATIVAN) tablet 1 mg 01-12 04:00: 00 01-12 03:56 :00 No 1mg 1 mg, Oral, ONCE, 1 dose, On Thu01/12/24 at 2300, MICHAEL [facility] ondansetron (ZOFRAN (PF)) injection 8 mg 01-12 04:00: 00 01-12 03:55 :00 No 8mg 8 mg, Slow IV Push, ONCE, 1 dose, On Thu01/12/24 at 2300, [facility] morpHINE (4 mg/mL) injection 6 mg 01-12 04:00: 00 01-12 03:55 :00 No 6mg 6 mg, Slow IV Push, ONCE, 1 dose, On Thu01/12/24 at 2300, STAT [facility] mirtazapine (REMERON) tablet 15 mg 01-10 02:00: 00 Yes 15mg [facility] atorvastati n (LIPITOR) tablet 40 mg 01-10 02:00: 00 Yes 40mg [facility] MULTIVITAMI N ORAL 01-09 15:56: 06 Yes 1{tbl} Take 1 Tab by mouth daily. [facility] omega-3 fatty acids-vitam in E (FISH OIL) 1,000 mg capsule 01-09 15:56: 06 Yes 1g Take 1 g by mouth daily. [facility] loratadine (CLARITIN LIQUI-GEL) 10 mg capsule 01-09 15:56: 06 Yes Take by mouth daily. [facility] metoprolol succinate XL 50 mg 24 hr tablet 01-09 15:56: 06 01-09 00:00 :00 No 50mg Take 1 tablet by mouth in the morning. [facility] KCL (KLOR-CON M20) tablet 40 mEq 01-09 15:45: 00 01-09 17:43 :00 No 40meq 40 mEq, Oral, ONCE, 1 dose, On Thu01/10/24 at 1045, Routine [facility] ondansetron 4 mg tablet 01-09 14:46: 23 01-09 00:00 :00 No 4mg Take 1 tablet by mouth every 8 (eight) hours as needed for Nausea and Vomiting (N/V). [facility] perflutren protein-A microsphr (OPTISON) injection 3 mL 01-09 14:15: 00 01-09 14:15 :00 No [id number] 3mL 3 mL, IV Push, ONCE, 1 dose, On Thu01/10/24 at 0915, Routine [facility] tamsulosin (FLOMAX) capsule 0.4 mg 01-09 14:00: 00 Yes .4mg 0.4 mg, Oral, DAILY, First dose on Thu01/10/24 at 0900, Until Discontinu ed, Routine [facility] metoprolol succinate XL (TOPROL XL) tablet 12.5 mg 01-09 14:00: 00 Yes 12.5mg [facility] DULoxetine (CYMBALTA) capsule 30 mg 01-09 14:00: 00 Yes 30mg 30 mg, Oral, DAILY, First dose on 01/10/24 at 0900, Until Discontinu ed, Routine [facility] digoxin (LANOXIN) tablet 125 mcg 01-09 14:00: 00 Yes 125ug 125 mcg, Oral, DAILY, First dose on 01/10/24 at 0900, [facility] 81 mg 01-09 14:00: 00 Yes 81mg 81 mg, Oral, DAILY, First dose on 01/10/24 at 0900, Until Discontinu ed, Routine [facility] nicotine (NICODERM) 21 mg/24 hr patch 1 Patch 01-09 13:45: 00 Yes 1{patch } 1 Patch, Topical, Administer over 24 Hours, Q24H, First dose on 01/10/24 at 0845, Until Discontinu ed, Routine [facility] gabapentin (NEURONTIN) capsule 100 mg 01-09 13:00: 00 Yes 100mg 100 mg, Oral, TID, First dose on 01/10/24 at 0800, Until Discontinu ed, Routine [facility] divalproex (DEPAKOTE) delayed release tablet 1,000 mg 01-09 13:00: 00 Yes 1000mg 1,000 mg, Oral, Q12H, First dose on 01/10/24 at 0800, Until Discontinu ed, Routine [facility] cyclobenzap rine (FLEXERIL) tablet 5 mg 01-09 13:00: 00 Yes 5mg 5 mg, Oral, TID, First dose on 01/10/24 at 0800, Until Discontinu ed, Routine [facility] apixaban (ELIQUIS) tablet 5 mg 01-09 13:00: 00 02-27 12:59 :00 No [id number] 5mg 5 mg, Oral, BID, 98 doses, First dose on 01/10/24 at 0800, Last dose on 02/27/24 at 2000, Routine, Indication s: DVT/PE [facility] FENTanyl PF (SUBLIMAZE (PF)) injection 25 mcg 01-09 03:08: 20 01-10 03:07 :20 No 25ug 25 mcg, Slow IV Push, Q4HPRN, Starting on 01/09/24 at 2208, Until 01/10/24 at 2206, Routine, Pain (scale 7-10), Pain (scale 4-6) [facility] acetaminoph en (TYLENOL) tablet 650 mg 01-09 03:08: 07 Yes 650mg 650 mg, Oral, Q6HPRN, Starting on 01/09/24 at 2208, Until Discontinu ed, Routine, Pain (scale 1-3) [facility] ondansetron (ZOFRAN (PF)) injection 4 mg 01-09 02:45: 00 01-09 01:53 :00 No 4mg 4 mg, Slow IV Push, ONCE, 1 dose, On 01/09/24 at 2145, MICHAEL [facility] ipratropium -albuteroL (DUONEB) 0.5 mg-3 mg(2.5 mg base)/3 mL nebulizer solution 3 mL 01-09 02:45: 00 01-09 02:01 :00 No 3mL 3 mL, Inhalation , ONCE, 1 dose, On 01/09/24 at 2145, Routine [facility] cefTRIAXone (ROCEPHIN) 1,000 mg in NaCl 0.9% (NS) 100 mL MINI-BAG 01-09 02:30: 00 01-09 03:10 :00 No 1000mg 1,000 mg, IV Piggyback, ONCE, 1 dose, On 01/09/24 at 2130, Administer over 30 Minutes, 100 mL, Reason for Anti-Infec tive: Documented Infection, Documented Infection Site: Respirator y, Duration of Therapy: Once (ED) [facility] famotidine (PEPCID (PF)) injection 20 mg 01-09 01:45: 00 01-09 01:53 :00 No 20mg 20 mg, Slow IV Push, ONCE, 1 dose, On 01/09/24 at 2045, MICHAEL [facility] iopamidol (ISOVUE 370-500 mL) injection 90 mL 01-09 00:45: 00 01-09 00:45 :00 No [id number] 90mL 90 mL, Intravenou s, ONCE, 1 dose, On 01/09/24 at 1945, Routine [facility] atorvastati n 40 mg tablet 01-09 00:00: 00 Yes [id number] 20mg Take 0.5 tablets by mouth at bedtime. [facility] furosemide 40 mg tablet 01-09 00:00: 00 Yes [id number] 40mg Take 1 tablet by mouth every morning and evening. [facility] ipratropium -albuteroL 0.5 mg-3 mg(2.5 mg base)/3 mL nebulizer solution 01-09 00:00: 00 Yes [id number] 3mL Inhale 3 mL every 6 (six) hours as needed for Wheezing or Shortness of Breath. [facility] predniSONE 20 mg tablet 01-09 00:00: 00 01-15 04:59 :00 No [id number] 40mg Take 2 tablets by mouth in the morning for 5 days. [facility] FENTanyl PF (SUBLIMAZE (PF)) injection 50 mcg 01-08 22:45: 00 01-08 23:10 :00 No 50ug 50 mcg, Slow IV Push, ONCE, 1 dose, On 01/09/24 at 1745, STAT [facility] ondansetron (ZOFRAN (PF)) injection 4 mg 01-08 21:30: 00 01-08 21:47 :00 No 4mg 4 mg, Slow IV Push, ONCE, 1 dose, On 01/09/24 at 1630, MICHAEL [facility] aspirin tablet 325 mg 01-08 21:15: 00 01-08 21:47 :00 No 325mg 325 mg, Oral, ONCE, 1 dose, On 01/09/24 at 1615, STAT [facility] spironolact one 25 mg tablet 12-15 00:00: 00 01-15 04:59 :00 No [id number] 25mg Take 1 tablet by mouth in the morning for 30 days. [facility] furosemide (LASIX) tablet 40 mg 12-14 22:00: 00 Yes 40mg 40 mg, Oral, QAM+PM, First dose (after last modificati on) on Thu12/15/23 at 1700, Until Discontinu ed, Routine [facility] spironolact one (ALDACTONE) tablet 25 mg 12-14 14:00: 00 Yes 25mg 25 mg, Oral, DAILY, First dose on Thu12/15/23 at 0900, Until Discontinu ed, Routine [facility] tamsulosin (FLOMAX) capsule 0.4 mg 12-14 14:00: 00 Yes .4mg 0.4 mg, Oral, DAILY, First dose on Thu12/15/23 at 0900, Until Discontinu ed, Routine [facility] metoprolol succinate XL (TOPROL XL) tablet 12.5 mg 12-14 14:00: 00 Yes 12.5mg 12.5 mg, Oral, DAILY, First dose on Thu12/15/23 at 0900, Until Discontinu ed, Routine [facility] lisinopriL (PRINIVIL,Z ESTRIL) tablet 2.5 mg 12-14 14:00: 00 Yes 2.5mg [facility] DULoxetine (CYMBALTA) capsule 30 mg 12-14 14:00: 00 Yes 30mg 30 mg, Oral, DAILY, First dose on Thu12/15/23 at 0900, Until Discontinu ed, Routine [facility] digoxin (LANOXIN) tablet 125 mcg 12-14 14:00: 00 Yes 125ug 125 mcg, Oral, DAILY, First dose on Thu12/15/23 at 0900, Until Discontinu ed [facility] aspirin chewable tablet 81 mg 12-14 14:00: 00 Yes 81mg 81 mg, Oral, DAILY, First dose on Thu12/15/23 at 0900, Until Discontinu ed, Routine [facility] furosemide (LASIX) injection 40 mg 12-14 14:00: 00 12-14 13:49 :00 No 40mg 40 mg, Slow IV Push, ONCE, 1 dose, On Thu12/15/23 at 0900, Routine [facility] MULTIVITAMI N ORAL 12-14 11:08: 41 Yes 1{tbl} Take 1 Tab by mouth daily. [facility] omega-3 fatty acids-vitam in E (FISH OIL) 1,000 mg capsule 12-14 11:08: 41 Yes 1g Take 1 g by mouth daily. [facility] loratadine (CLARITIN LIQUI-GEL) 10 mg capsule 12-14 11:08: 41 Yes Take by mouth daily. [facility] ondansetron 4 mg tablet 12-14 11:08: 41 Yes 4mg Take 1 tablet by mouth every 8 (eight) hours as needed for Nausea and Vomiting (N/V). [facility] methylPREDN ISolone sod succ (SOLU-MEDRO L (PF)) injection 40 mg 12-14 11:00: 00 Yes 40mg 40 mg, Intravenou s, Q6H, First dose (after last modificati on) on Thu12/15/23 at 0600, Until Discontinu ed, Routine [facility] ipratropium -albuteroL (DUONEB) 0.5 mg-3 mg(2.5 mg base)/3 mL nebulizer solution 3 mL 12-14 08:08: 34 Yes 3mL 3 mL, Inhalation , QIDPRN, Starting on Thu12/15/23 at 0308, Until Discontinu ed, Routine, Wheezing, Shortness of Breath, Bronchospa sm, Chest tightness [facility] ipratropium -albuteroL (DUONEB) 0.5 mg-3 mg(2.5 mg base)/3 mL nebulizer solution 3 mL 12-14 03:19: 38 Yes 3mL 3 mL, Inhalation , QIDPRN, Starting on Thu12/14/23 at 2219, Until Discontinu ed, Routine, Wheezing, Shortness of Breath, Bronchospa sm, Chest tightness [facility] Sliding Scale Insulin - Lispro (HumaLOG) 12-14 02:00: 00 Yes [facility] mirtazapine (REMERON) tablet 15 mg 12-14 02:00: 00 Yes 15mg 15 mg, Oral, QHS, First dose on Thu12/14/23 at 2100, Until Discontinu ed, Routine [facility] atorvastati n (LIPITOR) tablet 40 mg 12-14 02:00: 00 Yes 40mg 40 mg, Oral, QHS, First dose on Thu12/14/23 at 2100, Until Discontinu ed, Routine [facility] lacosamide (VIMPAT) tablet 100 mg 12-14 01:00: 00 Yes 100mg 100 mg, Oral, BID, First dose on Thu12/14/23 at 2000, Until Discontinu ed, Routine [facility] gabapentin (NEURONTIN) capsule 100 mg 12-14 01:00: 00 Yes 100mg 100 mg, Oral, TID, First dose on Thu12/14/23 at 1999, Until Discontinu ed, Routine [facility] divalproex (DEPAKOTE) delayed release tablet 1,000 mg 12-14 01:00: 00 Yes 1000mg 1,000 mg, Oral, Q12H, First dose on Thu12/14/23 at 2000, Until Discontinu ed, [facility] cyclobenzap [facility]ine (FLEXERIL) tablet 5 mg 12-14 01:00: 00 Yes 5mg 5 mg, Oral, TID, First dose on Thu12/14/23 at 2000, Until Discontinu ed, Routine [facility] apixaban (ELIQUIS) tablet 5 mg 12-14 01:00: 00 02-28 00:59 :00 No [id number] 5mg 5 mg, Oral, BID, 152 doses, First dose on Thu12/14/23 at 1999, Last dose on Thu02/28/24 at 0800, Routine, Indication s: DVT/PE [facility] ondansetron (ZOFRAN (PF)) injection 4 mg 12-14 00:15: 00 12-13 23:26 :00 No 4mg 4 mg, Slow IV Push, ONCE, 1 dose, On Thu12/14/23 at 1915, Routine [facility] morpHINE (4 mg/mL) injection 4 mg 12-14 00:15: 00 12-13 23:27 :00 No 4mg 4 mg, Slow IV Push, ONCE, 1 dose, On Thu12/14/23 at 1915, STAT [facility] metFORMIN 500 mg tablet 12-14 00:00: 00 01-14 04:59 :00 No [id number] 500mg Take 1 tablet by mouth in the morning for 30 days. [facility] empaglifloz in (JARDIANCE) 10 mg tablet 12-14 00:00: 00 01-14 04:59 :00 No [id number] 10mg Take 1 tablet by mouth in the morning for 30 days. [facility] furosemide 40 mg tablet 12-14 00:00: 00 01-09 00:00 :00 No [id number] 60mg Take 1.5 tablets by mouth every morning and evening for 60 days. [facility] glucagon (GLUCAGEN DIAGNOSTIC KIT) injection 1 mg 12-13 23:57: 51 Yes 1mg [facility] dextrose 50 % in water (D50W) injection 25 mL 12-13 23:57: 51 Yes 25mL [facility] ondansetron (ZOFRAN (PF)) injection 4 mg 12-13 23:57: 45 Yes 4mg [facility] morpHINE (2 mg/mL) injection 2 mg 12-13 23:57: 39 12-14 23:56 :39 No 2mg 2 mg, Slow IV Push, Q4HPRN, Starting on Thu12/14/23 at 1857, Until Thu12/15/23 at 1856, Routine, Pain (scale 7-10) [facility] HYDROcodone -acetaminop hen (NORCO 5) 5-325 mg tablet 1 tablet 12-13 23:57: 36 12-15 23:56 :36 No 1{tbl} 1 tablet, Oral, Q6HPRN, Starting on Thu12/14/23 at 1857, Until Thu12/16/23 at 1856, Routine, Pain (scale 4-6) [facility] acetaminoph en (TYLENOL) tablet 650 mg 12-13 23:57: 28 Yes 650mg 650 mg, Oral, Q6HPRN, Starting on Thu12/14/23 at 1857, Until Discontinu ed, Routine, Pain (scale 1-3), Temp > 38 C [facility] dicyclomine (BENTYL) tablet 20 mg 12-13 23:53: 34 Yes 20mg [facility] methylpredn isolone sod succ (SOLU-MEDRO L) injection 125 mg 12-13 23:00: 00 12-14 08:08 :57 No 125mg 125 mg, Intravenou s, Q6H, First dose on Thu12/14/23 at 1800, Until Discontinu ed, Routine [facility] ipratropium -albuteroL (DUONEB) 0.5 mg-3 mg(2.5 mg base)/3 mL nebulizer solution 3 mL 12-13 21:00: 00 Yes 3mL 3 mL, Inhalation , QID, First dose on Thu12/14/23 at 1600, Until Discontinu ed, Routine [facility] ondans[facility]ron (ZOFRAN (PF)) injection 4 mg 12-13 20:45: 00 12-13 19:40 :00 No 4mg 4 mg, Slow IV Push, ONCE, 1 dose, On Thu12/14/23 at 1545, Routine [facility] morpHINE (4 mg/mL) injection 4 mg 12-13 20:45: 00 12-13 19:41 :00 No 4mg 4 mg, Slow IV Push, ONCE, 1 dose, On Thu12/14/23 at 1545, STAT [facility] furosemide (LASIX) tablet 40 mg 12-03 14:00: 00 Yes 40mg 40 mg, Oral, DAILY, First dose (after last modificati on) on Thu12/04/23 at 0900, Until Discontinu ed, Routine [facility] mirtazapine (REMERON) tablet 15 mg 12-03 02:00: 00 Yes 15mg [facility] metoprolol succinate XL 25 mg 24 hr tablet 12-03 00:00: 00 Yes [id number] 12.5mg Take 0.5 tablets by mouth in the morning. [facility] Potassium Bicarb-Citr ic Acid (EFFER-K) effervescen t tablet 40 mEq 12-02 21:06: 00 12-02 23:09 :00 No 40meq 40 mEq, Oral, ONCE, 1 dose, On Thu12/03/23 at 1615, Routine [facility] metoprolol succinate XL (TOPROL XL) tablet 12.5 mg 12-02 16:00: 00 Yes 12.5mg 12.5 mg, Oral, DAILY, First dose on Thu12/03/23 at 1100, Until Discontinu ed, Routine [facility] sennosides (SENOKOT) tablet 8.6 mg 12-02 15:00: 00 Yes 8.6mg 8.6 mg, Oral, DAILY, First dose on Thu12/03/23 at 1000, Until Discontinu ed, Routine [facility] acetaminoph en (TYLENOL) tablet 650 mg 12-02 14:47: 07 Yes 650mg 650 mg, Oral, Q6HPRN, Starting on Thu12/03/23 at 0947, Until Discontinu ed, Routine, Pain (scale 1-3) [facility] ipratropium -albuteroL (DUONEB) 0.5 mg-3 mg(2.5 mg base)/3 mL nebulizer solution 3 mL 12-02 14:45: 00 Yes 3mL 3 mL, Inhalation , QID, First dose (after last modificati on) on Thu12/03/23 at 0945, Until Discontinu ed, Routine [facility] tamsulosin (FLOMAX) capsule 0.4 mg 12-02 14:00: 00 Yes .4mg 0.4 mg, Oral, DAILY, First dose on Thu12/03/23 at 0900, Until Discontinu ed, Routine [facility] DULoxetine (CYMBALTA) capsule 30 mg 12-02 14:00: 00 Yes 30mg 30 mg, Oral, DAILY, First dose on Thu12/03/23 at 0900, Until Discontinu ed, Routine [facility] digoxin (LANOXIN) tablet 125 mcg 12-02 14:00: 00 Yes 125ug 125 mcg, Oral, DAILY, First dose on Thu12/03/23 at 0900, Until Discontinu ed [facility] aspirin chewable tablet 81 mg 12-02 14:00: 00 Yes 81mg 81 mg, Oral, DAILY, First dose on Thu12/03/23 at 0900, Until Discontinu ed, Routine [facility] furosemide (LASIX) tablet 40 mg 12-02 14:00: 00 12-02 17:37 :33 No 40mg 40 mg, Oral, QAM+PM, First dose on Thu12/03/23 at 0900, Until Discontinu ed, Routine [facility] lacosamide (VIMPAT) tablet 100 mg 12-02 13:30: 00 Yes 100mg 100 mg, Oral, BID, First dose on Thu12/03/23 at 0830, Until Discontinu ed, Routine [facility] magnesium oxide (MAG-OX 400) tablet 400 mg 12-02 13:26: 00 12-02 14:24 :00 No 400mg 400 mg, Oral, ONCE, 1 dose, On Thu12/03/23 at 0830, Routine [facility] Potassium Bicarb-Citr ic Acid (EFFER-K) effervescen t tablet 40 mEq 12-02 13:19: 00 12-02 14:24 :00 No 40meq 40 mEq, Oral, ONCE, 1 dose, On Thu12/03/23 at 0830, Routine [facility] Sliding Scale Insulin - Lispro (HumaLOG) 12-02 13:00: 00 Yes Subcutaneo us, TID MEALS+HS, First dose on Thu12/03/23 at 0800, Until Discontinu ed, Routine [facility] gabapentin (NEURONTIN) capsule 100 mg 12-02 13:00: 00 Yes 100mg 100 mg, Oral, TID, First dose on Thu12/03/23 at 0800, Until Discontinu ed, Routine [facility] divalproex ER (DEPAKOTE ER) 24 hr tablet 1,000 mg 12-02 13:00: 00 Yes 1000mg 1,000 mg, Oral, Q12H, First dose on Thu12/03/23 at 0800, Until Discontinu ed, Routine [facility] cyclobenzap rine (FLEXERIL) tablet 5 mg 12-02 13:00: 00 Yes 5mg 5 mg, Oral, TID, First dose on Thu12/03/23 at 0800, Until Discontinu ed, Routine [facility] KCL (KLOR-CON M20) tablet 40 mEq 12-02 12:15: 00 12-02 14:24 :00 No 40meq 40 mEq, Oral, ONCE, 1 dose, On Thu12/03/23 at 0715, Routine [facility] KCL (KLOR-CON M20) tablet 20 mEq 12-02 04:00: 00 12-02 04:07 :00 No 20meq 20 mEq, Oral, ONCE, 1 dose, On Thu12/02/23 at 2300, Routine [facility] furosemide (LASIX) injection 40 mg 12-02 03:15: 00 12-02 02:36 :00 No 40mg 40 mg, Slow IV Push, ONCE, 1 dose, On Thu12/02/23 at 2215, Routine [facility] glucagon (GLUCAGEN DIAGNOSTIC KIT) injection 1 mg 12-02 02:54: 39 Yes 1mg 1 mg, Intramuscu lar, PRN, Starting on Thu12/02/23 at 2154, Until Discontinu ed, MICHAEL, Blood Glucose < or = 70 mg/dL and patient is NPO, unable to swallow or has mental changes. [facility] dextrose 50 % in water (D50W) injection 25 mL 12-02 02:54: 38 Yes 25mL 25 mL, Slow IV Push, PRN, Starting on Thu12/02/23 at 2154, Until Discontinu ed, MICHAEL, Blood Glucose < or = 70 mg/dL and patient is NPO, unable to swallow or has mental status changes. [facility] atorvastati n (LIPITOR) tablet 40 mg 12-02 02:00: 00 Yes 40mg 40 mg, Oral, QHS, First dose on Thu12/02/23 at 2100, Until Discontinu ed, Routine [facility] apixaban (ELIQUIS) tablet 5 mg 12-02 01:45: 00 02-28 00:59 :00 No [id number] 5mg 5 mg, Oral, BID, 176 doses, First dose on Thu12/02/23 at 2045, Last dose on Thu02/28/24 at 0800, Routine, Indication s: DVT/PE [facility] albuterol (PROVENTIL) 2.5 mg /3 mL (0.083 %) nebulizer solution 2.5 mg 12-02 01:40: 57 Yes 2.5mg [facility] ondansetron (ZOFRAN (PF)) injection 4 mg 12-02 01:02: 39 Yes 4mg 4 mg, Slow IV Push, Q6HPRN, Nausea and Vomiting (N/V), Starting on Thu12/02/23 at 2001, Doses of ondansetro n 16 mg and above need to be administer ed via IV piggyback. For Dose >=24mg ECG monitoring is advisable. [facility] lisinopriL 2.5 mg tablet 12-02 00:00: 00 Yes [id number] 2.5mg Take 1 tablet by mouth in the morning. [facility] acetaminoph en (OFIRMEV) IV piggyback 1,000 mg 12-01 22:15: 00 12-01 21:51 :00 No 1000mg 1,000 mg, IV Piggyback, at 400 mL/hr Administer over 15 Minutes, ONCE, 1 dose, On Thu12/02/23 at 1715, Routine, Is the patient strict NPO and unable to tolerate oral medication s? Yes [facility] iopamidol (ISOVUE 370-500 mL) injection 85 mL 12-01 19:15: 00 12-01 19:33 :00 No [id number] 85mL 85 mL, Intravenou s, ONCE, 1 dose, On Thu12/02/23 at 1415, Routine [facility] FENTanyl PF (SUBLIMAZE (PF)) injection 25 mcg 12-01 18:30: 00 12-01 19:38 :00 No 25ug 25 mcg, Slow IV Push, ONCE, 1 dose, On Thu12/02/23 at 1330, STAT [facility] NaCl 0.9% (NS) bolus infusion 1,000 mL 12-01 18:15: 00 12-01 21:00 :00 No 1000mL at 999 mL/hr, 1,000 mL, IV Infusion, ONCE, 1 dose, On Thu12/02/23 at 1315, STAT [facility] DULoxetine 30 mg capsule 11-28 00:00: 00 Yes [id number] 30mg Take 1 capsule by mouth in the morning. [facility] digoxin 125 mcg tablet 11-28 00:00: 00 Yes [id number] .125mg Take 1 tablet by mouth in the morning. [facility] tamsulosin 0.4 mg 24 hr capsule 11-28 00:00: 00 02-27 04:59 :00 No [id number] .4mg Take 1 capsule by mouth in the morning for 90 days. [facility] metoprolol succinate XL 50 mg 24 hr tablet 11-28 00:00: 00 12-02 00:00 :00 No [id number] 50mg Take 1 tablet by mouth in the morning. [facility] lisinopriL 5 mg tablet 11-28 00:00: 00 12-02 00:00 :00 No [id number] 5mg Take 1 tablet by mouth in the morning. [facility] spironolact one 25 mg tablet 11-28 00:00: 00 12-02 00:00 :00 No [id number] 50mg Take 2 tablets by mouth in the morning. [facility] metoprolol succinate XL (TOPROL XL) tablet 50 mg 11-27 14:00: 00 Yes 50mg 50 mg, Oral, DAILY, First dose (after last modificati on) on Thu11/28/23 at 0900, Until Discontinu ed, Routine [facility] KCL (KLOR-CON M20) tablet 40 mEq 11-27 12:30: 00 11-27 13:39 :00 No 40meq 40 mEq, Oral, ONCE, 1 dose, On Thu11/28/23 at 0730, Routine [facility] potassium chloride in water (KCL) 20 mEq/100 mL RTU IVPB 20 mEq 11-27 11:00: 00 11-27 13:40 :00 No 20meq 20 mEq, IV Piggyback, ONCE, 1 dose, On 11/28/23 at 0600, 100 mL [facility] clonazePAM (KLONOPIN) tablet 0.5 mg 11-27 02:45: 00 Yes .5mg 0.5 mg, Oral, QHS, First dose on Thu11/27/23 at 2145, Until Discontinu ed, Routine [facility] lacosamide (VIMPAT) tablet 100 mg 11-27 01:00: 00 Yes 100mg 100 mg, Oral, BID, First dose (after last modificati on) on Thu11/27/23 at 2000, Until Discontinu ed, Routine [facility] gabapentin 100 mg capsule 11-27 00:00: 00 Yes [id number] 100mg Take 1 capsule by mouth in the morning and 1 capsule at noon and 1 capsule in the evening. [facility] divalproex ER 500 mg 24 hr tablet 11-27 00:00: 00 04-03 00:00 :00 No [id number] 1000mg Take 2 tablets by mouth every 12 (twelve) hours. [facility] apixaban 5 mg tablet 11-27 00:00: 00 03-01 04:59 :00 No [id number] Take 2 tablets by mouth 2 (two) times daily for 3 days, THEN 1 tablet 2 (two) times daily for 90 days. Indication s: history of deep vein thrombosis [facility] furosemide 40 mg tablet 11-27 00:00: 00 12-14 00:00 :00 No [id number] 40mg Take 1 tablet by mouth every morning and evening. [facility] lacosamide (VIMPAT) 200 mg in NaCl 0.9% (NS) 50 mL piggyback 11-26 18:45: 00 11-26 23:04 :00 No 200mg 200 mg, IV Piggyback, ONCE, 1 dose, On Thu11/27/23 at 1345, Administer over 30 Minutes, 50 mL [facility] furosemide (LASIX) tablet 40 mg 11-26 14:00: 00 Yes 40mg 40 mg, Oral, QAM+PM, First dose on Thu11/27/23 at 0900, Until Discontinu ed, Routine [facility] divalproex ER (DEPAKOTE ER) 24 hr tablet 1,000 mg 11-26 13:00: 00 Yes 1000mg 1,000 mg, Oral, Q12H, First dose (after last modificati on) on Thu11/27/23 at 0800, Until Discontinu ed, Routine [facility] furosemide (LASIX) injection 40 mg 11-26 01:00: 00 11-26 01:57 :00 No 40mg 40 mg, Slow IV Push, BID, 1 dose, First dose (after last modificati on) on Thu11/26/23 at 2000, Routine [facility] divalproex ER (DEPAKOTE ER) 24 hr tablet 1,250 mg 11-26 01:00: 00 11-26 02:38 :40 No 1250mg 1,250 mg, Oral, Q12H, First dose (after last modificati on) on Thu11/26/23 at 2000, Until Discontinu ed, Routine [facility] cyanocobala min (DODEX) injection 1,000 mcg 11-25 18:30: 00 11-25 19:31 :00 No 1000ug 1,000 mcg, Intramuscu lar, ONCE, 1 dose, On Thu11/26/23 at 1330, Routine [facility] thiamine (VITAMIN B1) 100 mg in NaCl 0.9% (NS) piggyback 11-25 18:00: 00 11-30 13:59 :00 No 100mg IV Piggyback, DAILY, 5 doses, First dose on Thu11/26/23 at 1300, Last dose on Thu11/30/23 at 0900, 50 mL [facility] digoxin (LANOXIN) tablet 125 mcg 11-25 16:30: 00 Yes 125ug 125 mcg, Oral, DAILY, First dose on Thu11/26/23 at 1130, Until Discontinu ed, Routine [facility] metoprolol succinate XL (TOPROL XL) tablet 25 mg 11-25 16:15: 00 11-27 13:09 :49 No 25mg 25 mg, Oral, DAILY, First dose on Thu11/26/23 at 1115, Until Discontinu ed, Routine [facility] apixaban (ELIQUIS) tablet 10 mg 11-25 [...] Routine, Indication s: DVT/PE [Order 2 End] [facility] furosemide (LASIX) injection 40 mg 2023-11-25 01:00: 00 11-25 16:08 :20 No 40mg 40 mg, Slow IV Push, BID, First dose (after last modificati on) on Thu11/25/23 at 2000, Until Discontinu ed, Routine [facility] spironolact one (ALDACTONE) tablet 12.5 mg 11-24 21:00: 00 Yes 12.5mg 12.5 mg, Oral, DAILY, First dose on Thu11/25/23 at 1600, Until Discontinu ed, Routine [facility] lisinopriL (PRINIVIL,Z ESTRIL) tablet 5 mg 11-24 21:00: 00 Yes 5mg 5 mg, Oral, DAILY, First dose on Thu11/25/23 at 1600, Until Discontinu ed, Routine [facility] apixaban (ELIQUIS) tablet 5 mg 2023-11-24 16:30: 00 11-24 16:18 :00 No 5mg 5 mg, Oral, ONCE, 1 dose, On Thu11/25/23 at 1130, Routine, Indication s: DVT/PE [facility] apixaban (ELIQUIS) tablet 5 mg 11-24 14:00: 00 11-24 15:40 :42 No 5mg 5 mg, Oral, BID, 11 doses, First dose (after last modificati on) on Thu11/25/23 at 0900, Last dose on Thu11/30/23 at 0800, Routine, Indication s: DVT/PE [facility] divalproex ER (DEPAKOTE ER) 24 hr tablet 1,000 mg 2023-11-24 13:00: 00 11-25 17:41 :19 No 1000mg 1,000 mg, Oral, Q12H, First dose (after last modificati on) on Thu11/25/23 at 0800, Until Discontinu ed, Routine [facility] ondansetron (ZOFRAN (PF)) injection 4 mg 11-24 03:45: 00 11-24 02:49 :00 No 4mg 4 mg, Slow IV Push, ONCE, On Thu11/24/23 at 2245, For 1 dose, Doses of ondansetro n 16 mg and above need to be administer ed via IV piggyback. For Dose >=24mg ECG monitoring is advisable. [facility] divalproex (DEPAKOTE) delayed release tablet 500 mg 11-24 03:45: 00 11-24 04:49 :00 No 500mg 500 mg, Oral, ONCE, 1 dose, On Thu11/24/23 at 2245, Routine [facility] nitroglycer in (NITROSTAT) sublingual tablet 0.4 mg 11-24 02:36: 01 Yes .4mg 0.4 mg, Sublingual , Q5MIN PRN, Starting on Thu11/24/23 at 2136, Until Discontinu ed, Routine, Chest pain [facility] nystatin (NILSTAT) 100,000 unit/mL suspension 500,000 Units 11-24 01:15: 00 11-26 20:18 :35 No 5mL 500,000 Units (5 mL), Oral, QID, First dose on Thu11/24/23 at 2014, Until Discontinu ed, [facility] acetaminoph en-codeine (TYLENOL #3) 300-30 mg tablet 1 tablet 11-24 01:07: 37 Yes 1{tbl} 1 tablet, Oral, Q6HPRN, Starting on Thu11/24/23 at 2006, Until Discontinu ed, Routine, Pain (scale 4-6) [facility] iopamidol (ISOVUE 370-500 mL) injection 100 mL 11-23 23:15: 00 11-23 22:15 :00 No [id number] 100mL 100 mL, Intravenou s, ONCE, 1 dose, On Thu11/24/23 at 1815, [facility]ine [facility] milrinone in 5 % dextrose (PRIMACOR) 20 mg/100 mL (200 mcg/mL) infusion RTU 11-23 20:45: 00 11-24 18:50 :54 No .25ug/k g/min 0.25 mcg/kg/min ?94.5 kg (7.0875 mL/hr, rounded to 7.09 mL/hr), IV Infusion, CONTINUOUS , Starting on Thu11/24/23 at 1545, 1. Dose to be adjusted by physician or provider. 2. Notify MD if MAP < 65 mmHG. [facility] polyethylen e glycol 3350 powder 17 g 11-23 19:15: 00 Yes 17g 17 g, Oral, DAILY, First dose on Thu11/24/23 at 1415, Until Discontinu ed, Routine [facility] ipratropium -albuteroL (DUONEB) 0.5 mg-3 mg(2.5 mg base)/3 mL nebulizer solution 3 mL 11-23 19:00: 00 Yes 3mL 3 mL, Inhalation , TID, First dose (after last modificati on) on Thu11/24/23 at 1400, Until Discontinu ed, Routine [facility] ondansetron (ZOFRAN (PF)) injection 4 mg 11-23 17:16: 00 11-23 17:24 :00 No 4mg 4 mg, Slow IV Push, ONCE, On Thu11/24/23 at 1230, For 1 dose, Doses of ondansetro n 16 mg and above need to be administer ed via IV piggyback. For Dose >=24mg ECG monitoring is advisable. [facility] apixaban (ELIQUIS) tablet 10 mg 11-23 15:45: 00 11-24 13:38 :20 No 10mg 10 mg, Oral, BID, 14 doses, First dose on Thu11/24/23 at 1045, Last dose on Thu11/30/23 at 2000, Routine, Indication s: DVT/PE [facility] milrinone in 5 % dextrose (PRIMACOR) 20 mg/100 mL (200 mcg/mL) infusion RTU 11-23 15:45: 00 11-23 20:33 :33 No .125ug/ kg/min 0.125 mcg/kg/min ?94.5 kg (3.5438 mL/hr, rounded to 3.54 mL/hr), IV Infusion, CONTINUOUS , Starting on Thu11/24/23 at 1045, 1. Dose to be adjusted by physician or provider. 2. Notify MD if MAP < 65 mmHG. [facility] HYDROcodone -acetaminop hen (NORCO 5) 5-325 mg tablet 1 tablet 11-23 14:28: 00 11-23 15:37 :00 No 1{tbl} 1 tablet, Oral, ONCE, 1 dose, On Thu11/24/23 at 0930, Routine [facility] hydrALAZINE (APRESOLINE ) tablet 10 mg 11-23 12:30: 00 11-25 13:28 :25 No 10mg 10 mg, Oral, Q8H, First dose on Thu11/24/23 at 0730, Until Discontinu ed, Routine [facility] iohexoL (OMNIPAQUE 180-20 mL) injection 11-22 20:31: 56 11-22 20:32 :10 No ONCE INTRA PROCEDURE, Starting on Thu11/23/23 at 1531, Until Thu11/23/23 at 1532, Routine, CV Intraproce dure [facility] nitroglycer in (TRIDIL) 2 mg in 10 mL D5W for Cardiac Cath 11-22 19:32: 38 11-22 20:32 :10 No ONCE INTRA PROCEDURE, Starting on Thu11/23/23 at 1432, Until Thu11/23/23 at 1532, Routine, CV Intraproce dure [facility] heparin 1,000 unit/mL injection 11-22 19:31: 28 11-22 20:32 :10 No ONCE INTRA PROCEDURE, Starting on Thu11/23/23 at 1431, Until Thu11/23/23 at 1532, Routine, CV Intraproce dure [facility] midazolam (VERSED) injection 11-22 19:24: 54 11-22 20:32 :10 No ONCE INTRA PROCEDURE, Starting on Thu11/23/23 at 1424, Until Thu11/23/23 at 1532, Routine, CV Intraproce dure [facility] FENTanyl PF (SUBLIMAZE (PF)) injection 11-22 19:21: 00 11-22 20:32 :10 No ONCE INTRA PROCEDURE, Starting on Thu11/23/23 at 1421, Until Thu11/23/23 at 1532, Routine, CV Intraproce dure [facility] lidocaine 1% (PF) (XYLOCAINE) injection 11-22 19:20: 00 11-22 20:32 :10 No ONCE INTRA PROCEDURE, Starting on Thu11/23/23 at 1420, Until Thu11/23/23 at 1532, Routine, CV Intraproce dure [facility] furosemide 20 mg tablet 11-22 15:47: 27 11-27 00:00 :00 No 20mg Take 1 tablet by mouth every morning and evening. [facility] milrinone in 5 % dextrose (PRIMACOR) 20 mg/100 mL (200 mcg/mL) infusion RTU 11-22 15:45: 00 11-23 15:32 :54 No .25ug/k g/min 0.25 mcg/kg/min ?94.5 kg (7.0875 mL/hr, rounded to 7.09 mL/hr), IV Infusion, CONTINUOUS , Starting on Thu11/23/23 at 1045, 1. Dose to be adjusted by physician or provider. 2. Notify MD if MAP < 65 mmHG. [facility] DULoxetine (CYMBALTA) capsule 30 mg 11-22 14:00: 00 11-27 00:00 :00 No 30mg 30 mg, Oral, DAILY, First dose on Thu11/23/23 at 0900, Until Discontinu ed, Routine [facility] magnesium oxide (MAG-OX 400) tablet 400 mg 11-22 13:45: 00 11-22 14:00 :00 No 400mg 400 mg, Oral, ONCE, 1 dose, On Thu11/23/23 at 0845, [facility]ine [facility] hydrOXYzine (ATARAX) tablet 50 mg 11-22 13:42: 15 Yes 50mg 50 mg, Oral, Q8HPRN, Starting on Thu11/23/23 at 0842, Until Discontinu ed, Routine, Anxiety [facility] KCL (KLOR-CON M20) tablet 40 mEq 11-22 10:45: 00 11-22 10:20 :00 No 40meq 40 mEq, Oral, ONCE, 1 dose, On Thu11/23/23 at 0545, Routine [facility] mirtazapine (REMERON) tablet 15 mg 11-22 02:00: 00 Yes 15mg 15 mg, Oral, QHS, First dose on Thu11/22/23 at 2100, Until Discontinu ed, Routine [facility] atorvastati n (LIPITOR) tablet 40 mg 11-22 02:00: 00 11-25 16:05 :43 No 40mg 40 mg, Oral, QHS, First dose on Thu11/22/23 at 2100, Until Discontinu ed, Routine [facility] divalproex (DEPAKOTE) delayed release tablet 500 mg 11-22 01:00: 00 11-23 12:27 :34 No 500mg 500 mg, Oral, BID, First dose on Thu11/22/23 at 2000, Until Discontinu ed, Routine [facility] milrinone in 5 % dextrose (PRIMACOR) 20 mg/100 mL (200 mcg/mL) infusion RTU 11-21 19:30: 00 11-22 15:38 :58 No .125ug/ kg/min 0.125 mcg/kg/min ?94.5 kg (3.5438 mL/hr, rounded to 3.54 mL/hr), IV Infusion, CONTINUOUS , Starting on Thu11/22/23 at 1430, 1. Dose to be adjusted by physician or provider. 2. Notify MD if MAP < 65 mmHG. [facility] diazePAM (VALIUM) injection 2 mg 11-21 19:28: 00 11-21 20:15 :00 No 2mg 2 mg, Intravenou s, ONCE, 1 dose, On 11/22/23 at 1430, Routine [facility] gabapentin (NEURONTIN) capsule 100 mg 11-21 19:00: 00 Yes 100mg 100 mg, Oral, TID, First dose on 11/22/23 at 1400, Until Discontinu ed, Routine [facility] furosemide (LASIX) injection 40 mg 11-21 19:00: 00 11-24 18:54 :28 No 40mg 40 mg, Slow IV Push, TID, First dose on 11/22/23 at 1400, Until Discontinu ed, Routine [facility] ondansetron (ZOFRAN-ODT ) disintegrat ing tablet 4 mg 11-21 18:45: 00 11-21 18:25 :00 No 4mg 4 mg, Oral, ONCE, 1 dose, On 11/22/23 at 1345, Routine [facility] perflutren lipid microsphere s (DEFINITY) injection 2 mL 11-21 16:45: 00 11-21 16:45 :00 No [id number] 2mL 2 mL, IV Push, ONCE, 1 dose, On 11/22/23 at 1145, Routine [facility] furosemide (LASIX) injection 40 mg 11-21 14:15: 00 11-21 18:23 :20 No 40mg 40 mg, Slow IV Push, BID, 2 doses, First dose on 11/22/23 at 0915, Last dose on 11/22/23 at 2000, Routine [facility] losartan (COZAAR) tablet 25 mg 11-21 14:15: 00 11-21 20:14 :04 No 25mg 25 mg, Oral, DAILY, First dose on 11/22/23 at 0915, Until Discontinu ed, Routine [facility] tamsulosin (FLOMAX) capsule 0.4 mg 11-21 14:00: 00 Yes .4mg 0.4 mg, Oral, DAILY, First dose on Thu11/22/23 at 0900, Until Discontinu ed, Routine [facility] pantoprazol e (PROTONIX) EC tablet 40 mg 11-21 14:00: 00 Yes 40mg 40 mg, Oral, DAILY, First dose on Thu11/22/23 at 0900, Until Discontinu ed, Routine [facility] aspirin chewable tablet 81 mg 11-21 14:00: 00 Yes 81mg 81 mg, Oral, DAILY, First dose on 11/22/23 at 0900, Until Discontinu ed, Routine [facility] predniSONE (DELTASONE) tablet 40 mg 11-21 14:00: 00 11-25 13:14 :00 No 40mg 40 mg, Oral, DAILY, 5 doses, First dose on Thu11/22/23 at 0900, Last dose on Arpita 11/26/23 at 0900, [facility]ine [facility] iopamidol (ISOVUE 370-500 mL) injection 80 mL 11-21 14:00: 00 11-21 14:00 :00 No [id number] 80mL 80 mL, Intravenou s, ONCE, 1 dose, On Thu11/22/23 at 0900, [facility]ine [facility] Sliding Scale Insulin - Lispro (HumaLOG) 11-21 13:00: 00 Yes Subcutaneo us, TID MEALS+HS, First dose on Thu11/22/23 at 0800, Until Discontinu ed, Routine [facility] divalproex ER (DEPAKOTE ER) 24 hr tablet 500 mg 11-21 13:00: 00 11-24 02:43 :24 No 500mg 500 mg, Oral, Q12H, First dose on 11/22/23 at 0800, Until Discontinu ed, Routine [facility] ipratropium -albuteroL (DUONEB) 0.5 mg-3 mg(2.5 mg base)/3 mL nebulizer solution 3 mL 11-21 09:00: 00 11-23 15:56 :58 No 3mL 3 mL, Inhalation , Q4H, First dose on Thu11/22/23 at 0400, Until Discontinu ed, Routine [facility] furosemide (LASIX) injection 40 mg 11-21 07:45: 00 11-21 07:15 :00 No 40mg 40 mg, Slow IV Push, ONCE, 1 dose, On Thu11/22/23 at 0245, Routine [facility] sodium chloride 7% (HYPER-IRVIN) nebulizer solution 4 mL 11-21 07:00: 00 11-23 14:32 :09 No 4mL 4 mL, Inhalation , DAILY, First dose on Thu11/22/23 at 0200, Until Discontinu ed, Routine [facility] morpHINE (2 mg/mL) injection 2 mg 11-21 06:52: 11 Yes 2mg 2 mg, Slow IV Push, Q4HPRN, Starting on Thu11/22/23 at 0152, Until Discontinu ed, Routine, Pain (scale 7-10) [facility] heparin 25,000 Units/250 mL (Premixed Bag) [...] ant therapy. Range, Dosing and Testing: FOR [facility], [facility], AND [facility] ONLY - aPTT < 35: Bolus [...] once therapeuti c levels are reached. FOR [facility] ONLY - aPTT < [...] ADJUST INITIAL BOLUS OR INITIAL INFUSION RATE. [facility] heparin (1,000 unit/mL, 10 mL vial) for Rebolusing 11-21 06:43: 39 11-23 15:32 :54 No 3000U FOR REBOLUSING , Starting on 11/22/23 at 0143, Until Thu11/24/23 at 1032, Routine, Dosing based on aPPT testing parameters (refer to continuous heparin drip order). [facility] glucagon (GLUCAGEN DIAGNOSTIC KIT) injection 1 mg 11-21 06:36: 57 Yes 1mg [facility] dextrose 50 % in water (D50W) injection 25 mL 11-21 06:36: 57 Yes 25mL [facility] acetaminoph en (TYLENOL) tablet 650 mg 11-21 06:36: 44 Yes 650mg 650 mg, Oral, Q6HPRN, Starting on 11/22/23 at 0136, Until Discontinu ed, Routine, Pain (scale 1-3) [facility] ondansetron (ZOFRAN (PF)) injection 4 mg 11-21 04:45: 00 11-21 03:46 :00 No 4mg 4 mg, Slow IV Push, ONCE, 1 dose, On 11/21/23 at 2345, MICHAEL [facility] acetaminoph en (TYLENOL) tablet 975 mg 11-21 04:45: 00 11-21 03:44 :00 No 975mg 975 mg, Oral, ONCE, 1 dose, On 11/21/23 at 2345, MICHAEL [facility] HEPARIN SODIUM (PORCINE) 1,000 UNIT/ML BOLUS ACS ORDER SET 11-21 04:15: 00 11-21 04:33 :00 No 4000U 4,000 Units, IV Push, ONCE, 1 dose, On 11/21/23 at 2315, MICHAEL [facility] morpHINE (4 mg/mL) injection 4 mg 11-21 04:15: 00 11-21 04:27 :00 No 4mg 4 mg, Slow IV Push, ONCE, 1 dose, On 11/21/23 at 2315, STAT [facility] methylpredn isolone sod succ (SOLU-MEDRO L) injection 125 mg 11-21 04:15: 00 11-21 03:24 :00 No 125mg 125 mg, Slow IV Push, ONCE NOW, 1 dose, On 11/21/23 at 2315, MICHAEL [facility] heparin 25,000 Units/250 mL (Premixed Bag) [...] ant therapy. Range, Dosing and Testing: FOR [facility], [facility], AND [facility] ONLY - aPTT < 35: Bolus 5000 [...] once therapeuti c levels are reached. FOR [facility] ONLY - aPTT < [...] ADJUST INITIAL BOLUS OR INITIAL INFUSION RATE. [facility] ipratropium -albuteroL (DUONEB) 0.5 mg-3 mg(2.5 mg base)/3 mL nebulizer solution 3 mL 11-21 04:00: 00 11-21 02:51 :00 No 3mL 3 mL, Inhalation , ONCE, 1 dose, On 11/21/23 at 2300, MICHAEL [facility] ipratropium -albuteroL (DUONEB) 0.5 mg-3 mg(2.5 mg base)/3 mL nebulizer solution 3 mL 11-21 03:30: 00 11-21 02:37 :00 No 3mL 3 mL, Inhalation , ONCE, 1 dose, On 11/21/23 at 2230, MICHAEL [facility] NaCl 0.9% (NS) bolus infusion 500 mL 11-21 03:15: 00 11-21 04:14 :00 No 500mL at 999 mL/hr, 500 mL, IV Infusion, ONCE, 1 dose, On 11/21/23 at 2215, STAT [facility] mirtazapine 15 mg tablet 09-30 00:00: 00 Yes 15mg Take 1 tablet by mouth at bedtime. [facility] Metformin HCl 500 MG oral Tablet 13 14:28: 11 Yes 500mg Take 1 tablet (500 mg total) by mouth daily (with breakfast) . [facility] Ibuprofen (MOTRIN) 200 MG oral Tablet 09-29 14:27: 32 09-29 00:00 :00 No 200mg [id number] 3D Take 1 tablet (200 mg total) by mouth every 8 hours as needed for pain. [facility] Fluticasone -Umeclidin- Vilant (Trelegy Ellipta) 100-62.5-25 MCG/ACT inhalation AEROSOL POWDER, BREATH ACTIVATED 09-29 00:00: 00 Yes [id number] 1{puff} Inhale 1 puff into the lungs daily. [facility] Carvedilol 12.5 MG oral Tablet 09-29 00:00: 00 Yes [id number] 12.5mg Take 1 tablet (12.5 mg total) by mouth in the morning and 1 tablet (12.5 mg total) in the evening. Take with meals. [facility] Duloxetine HCl [address] Particles 09-29 00:00: 00 Yes [id number] 20mg Take 1 capsule (20 mg total) by mouth daily. [facility] Acetaminoph en-Codeine (TYLENOL/CO DEINE #3) 300-30 MG oral Tablet 09-29 00:00: 00 Yes [id number] 1{tbl} Q.25D Take 1 tablet by mouth every 6 hours as needed for pain. [facility] Clonazepam 1 MG oral Tablet 09-29 00:00: 00 Yes [id number] 1mg QD Take 1 tablet (1 mg total) by mouth nightly as needed for anxiety. [facility] spironolact one 25 mg tablet 09-29 00:00: 00 11-27 00:00 :00 No 25mg Take 1 tablet by mouth in the morning and 1 tablet in the evening. [facility] metFORMIN 500 mg tablet 09-28 00:00: 00 12-14 00:00 :00 No 500mg Take 1 tablet by mouth in the morning. [facility] Carvedilol 12.5 MG oral Tablet 09-28 [...] MG oral Tablet 09-11 00:00: 00 Yes [id number] 15mg QD Take 1 tablet (15 mg total) by mouth nightly as needed. [facility] Acetaminoph en-Codeine (TYLENOL/CO DEINE #3) 300-30 MG oral Tablet 09-11 00:00: 00 09-29 00:00 :00 No [id number] 1{tbl} Q.25D Take 1 tablet by mouth every 6 hours as needed for pain. [facility] DULoxetine (CYMBALTA) 60 MG capsule 09-09 00:00: 00 10-08 23:59 :00 No 60mg QD Take 1 capsule (60 mg total) by mouth daily for 30 days. [facility] varenicline (CHANTIX) 1 mg tablet 09-08 10:51: 03 Yes 1mg Q.5D Take 1 tablet (1 mg total) by mouth 2 (two) times daily Give with meals and with a full glass of water.. [facility] atorvastati n (LIPITOR) 20 MG tablet 09-08 10:51: 03 Yes 20mg QD Take 1 tablet (20 mg total) by mouth daily. [facility] Cyanocobala min (Vitamin B-12) 1000 MCG oral Tablet 09-08 00:00: 00 10-08 04:59 :00 No 1000ug Take 1 tablet (1,000 mcg total) by mouth daily. [facility] lidocaine (LIDODERM) 4 % patch 09-08 00:00: 00 10-07 23:59 :00 No 3{patch } Q24H Place 3 patches onto the skin daily for 30 days. [facility] metoprolol succinate (TOPROL-XL) 25 MG 24 hr tablet 09-07 16:47: 05 09-07 00:00 :00 No 25mg QD Take 1 tablet (25 mg total) by mouth daily. [facility] albuterol HFA (VENTOLIN HFA) 90 mcg/actuati on inhaler 09-07 16:47: 05 09-07 00:00 :00 No 1{puff} Inhale 1 puff by mouth via inhaler every 6 (six) hours as needed for Wheezing. [facility] fluticasone -umeclidin- vilanter (Trelegy Ellipta) 200-62.5-25 mcg DsDv 09-07 16:47: 05 09-07 00:00 :00 No QD Inhale by mouth via inhaler daily. [facility] Albuterol HFA 108 (90 Base) [...] total) by mouth daily for 30 days. [facility] polyethylen e glycol (GLYCOLAX) 17 gram packet 09-07 00:00: 00 10-06 23:59 :00 No 17g Q.5D Take 17 g by mouth 2 (two) times daily for 30 days. [facility] gabapentin (NEURONTIN) 400 MG capsule 09-07 00:00: 00 10-06 23:59 :00 No 400mg Q.[id number] 3D Take 1 capsule (400 mg total) by mouth 3 (three) times daily for 30 days. [facility] furosemide (LASIX) 20 MG tablet 09-07 00:00: 00 10-06 23:59 :00 No 20mg QD Take 1 tablet (20 mg total) by mouth daily for 30 days. [facility] fluticasone -umeclidin- vilanter (Trelegy Ellipta) 200-62.5-25 mcg DsDv 09-07 00:00: 00 10-06 23:59 :00 No 1{inhal ation} QD Inhale 1 Inhalation by mouth via inhaler daily for 30 days. [facility] metoprolol succinate (TOPROL-XL) 25 MG 24 hr tablet 09-07 00:00: 00 10-06 23:59 :00 No 25mg QD Take 1 tablet (25 mg total) by mouth daily for 30 days. [facility] lacosamide (VIMPAT) 100 mg in NaCl 0.9% (NS) 50 mL piggyback 08-12 21:15: 00 08-12 21:23 :00 No 100mg 100 mg, IV Piggyback, ONCE, 1 dose, On Thu08/12/23 at 1515, Administer over 30 Minutes, 50 mL
Facu lty member approving Restricted medication : MJ BRYAN [facility] Dicyclomine HCl 20 MG oral [...] total) by mouth daily for 5 days. [facility] varenicline (CHANTIX) 1 mg tablet 2022-07 19:45: 32 Yes 1mg Q.5D Take 1 tablet (1 mg total) by mouth 2 (two) times daily Give with meals and with a full glass of water.. [facility] atorvastati n (LIPITOR) 20 MG tablet 2022-07 19:45: 32 Yes 20mg QD Take 1 tablet (20 mg total) by mouth daily. [facility] metoprolol succinate (TOPROL-XL) 25 MG 24 hr tablet 2022-07 19:45: 32 09-07 00:00 :00 No 25mg QD Take 1 tablet (25 mg total) by mouth daily. [facility] albuterol HFA (VENTOLIN HFA) 90 mcg/actuati on inhaler 2022-07 19:45: 32 09-07 00:00 :00 No 1{puff} Inhale 1 puff by mouth via inhaler every 6 (six) hours as needed for Wheezing. [facility] fluticasone -umeclidin- vilanter (Trelegy Ellipta) 200-62.5-25 mcg DsDv 2022-07 19:45: 32 09-07 00:00 :00 No QD Inhale by mouth via inhaler daily. [facility] acetaminoph en-codeine (TYLENOL #3) 300-30 mg per tablet 2022-07 18:02: 00 06-16 00:00 :00 No 1{tbl} Take 1 tablet by mouth every 4 (four) hours as needed for Pain. [facility] DULoxetine (CYMBALTA) 30 MG capsule 2022-07 00:00: 00 09-08 00:00 :00 No 30mg QD Take 1 capsule (30 mg total) by mouth daily for 90 days. [facility] metroNIDAZO LE (FLAGYL) 500 MG tablet 2022-07 00:00: 00 07-04 23:59 :00 No 500mg Take 1 tablet (500 mg total) by mouth every 8 (eight) hours for 18 days. [facility] ciprofloxac in HCl (CIPRO) 500 MG tablet 2022-07 00:00: 00 07-04 23:59 :00 No 500mg Q.5D Take 1 tablet (500 mg total) by mouth 2 (two) times daily for 18 days. [facility] cyclobenzap rine (FLEXERIL) 10 MG tablet 2022-07 00:00: 00 06-26 23:59 :00 No 10mg [id number] 3D Take 1 tablet (10 mg total) by mouth 3 (three) times daily for 10 days. [facility] oxyCODONE (OXY-IR) 10 mg tablet 2022-07 00:00: 00 06-26 23:59 :00 No 10mg Take 1 tablet (10 mg total) by mouth every 8 (eight) hours as needed for up to 10 days. Max Daily Amount: 30 mg [facility] nystatin (MYCOSTATIN ) 100,000 unit/mL suspension 2022-07 00:00: 00 06-21 23:59 :00 No [id number] Q.25D Take 5 mLs (500,000 Units total) by mouth 4 (four) times daily for 5 days. [facility] dexAMETHaso ne (DECADRON) 2 MG tablet 2022-07 00:00: 00 06-08 23:59 :00 No 1mg Take 0.5 tablets (1 mg total) by mouth 2 (two) times daily with breakfast and dinner for 2 days. [facility] metoprolol succinate (TOPROL-XL) 25 MG 24 hr tablet 2022-07 17:44: 21 Yes 25mg QD Take 1 tablet (25 mg total) by mouth daily. [facility] varenicline (CHANTIX) 1 mg tablet 2022-07 17:44: 21 Yes 1mg Q.5D Take 1 tablet (1 mg total) by mouth 2 (two) times daily Give with meals and with a full glass of water.. [facility] albuterol HFA (VENTOLIN HFA) 90 mcg/actuati on inhaler 2022-07 17:44: 21 Yes 1{puff} Inhale 1 puff by mouth via inhaler every 6 (six) hours as needed for Wheezing. [facility] fluticasone -umeclidin- vilanter (Trelegy Ellipta) 200-62.5-25 mcg DsDv 2022-07 17:44: 21 Yes QD Inhale by mouth via inhaler daily. [facility] atorvastati n (LIPITOR) 20 MG tablet 2022-07 17:44: 21 Yes 20mg QD Take 1 tablet (20 mg total) by mouth daily. [facility] acetaminoph en-codeine (TYLENOL #3) 300-30 mg per tablet 2022-07 17:44: 21 Yes 1{tbl} Take 1 tablet by mouth every 4 (four) hours as needed for Pain. [facility] Naloxone (NARCAN) 4 MG/0.1ML nasal Liquid 2022-07 00:00: 00 Yes 4mg 0.1 mL (4 mg total) as needed. Cynthia gonzalez senna (SENOKOT) 8.6 mg tablet 2022-07 00:00: 00 06-18 23:59 :00 No 17.2mg Q.5D Take 2 tablets (17.2 mg total) by mouth 2 (two) times daily for 14 days. [facility] cyclobenzap rine (FLEXERIL) 10 MG tablet 2022-07 00:00: 00 06-16 00:00 :00 No 10mg [id number] 3D Take 1 tablet (10 mg total) by mouth 3 (three) times daily for 10 days. [facility] methocarbam oL (ROBAXIN) 500 MG tablet 2022-07 00:00: 00 06-16 00:00 :00 No 500mg Q.25D Take 1 tablet (500 mg total) by mouth 4 (four) times daily for 10 days. [facility] lactulose (CHRONULAC) 20 gram/30 mL solution 2022-07 00:00: 00 06-11 23:59 :00 No 20g Q.[id number] 3D Take 30 mLs (20 g total) by mouth 3 (three) times daily for 7 days. [facility] ondansetron (ZOFRAN-ODT ) 4 MG disintegrat ing tablet 2022-07 00:00: 00 06-11 23:59 :00 No 4mg Take 1 tablet (4 mg total) by mouth every 6 (six) hours as needed for up to 7 days. [facility] metoprolol succinate (TOPROL-XL) 25 MG 24 hr tablet 2022-07 15:23: 22 Yes 25mg QD Take 1 tablet (25 mg total) by mouth daily. [facility] varenicline (CHANTIX) 1 mg tablet 2022-07 15:23: 22 Yes 1mg Q.5D Take 1 tablet (1 mg total) by mouth 2 (two) times daily Give with meals and with a full glass of water.. [facility] albuterol HFA (VENTOLIN HFA) 90 mcg/actuati on inhaler 2022-07 15:23: 22 Yes 1{puff} Inhale 1 puff by mouth via inhaler every 6 (six) hours as needed for Wheezing. [facility] fluticasone -umeclidin- vilanter (Trelegy Ellipta) 200-62.5-25 mcg DsDv 2022-07 15:23: 22 Yes QD Inhale by mouth via inhaler daily. [facility] atorvastati n (LIPITOR) 20 MG tablet 2022-07 15:23: 22 Yes 20mg QD Take 1 tablet (20 mg total) by mouth daily. [facility] acetaminoph en-codeine (TYLENOL #3) 300-30 mg per tablet 2022-07 15:23: 22 Yes 1{tbl} Take 1 tablet by mouth every 4 (four) hours as needed for Pain. [facility] acetaminoph en-codeine (TYLENOL #3) 300-30 mg per tablet 2022-07 09:42: 02 Yes 1{tbl} Take 1 tablet by mouth every 4 (four) hours as needed for Pain. Max Daily Amount: 6 tablets [facility] varenicline (CHANTIX) 1 mg tablet 2022-07 09:40: 04 Yes 1mg Q.5D Take 1 tablet (1 mg total) by mouth 2 (two) times daily Give with meals and with a full glass of water.. [facility] albuterol HFA (VENTOLIN HFA) 90 mcg/actuati on inhaler 2022-07 09:40: 04 Yes 1{puff} Inhale 1 puff by mouth via inhaler every 6 (six) hours as needed for Wheezing. [facility] fluticasone -umeclidin- vilanter (Trelegy Ellipta) 200-62.5-25 mcg DsDv 2022-07 09:40: 04 Yes QD Inhale by mouth via inhaler daily. [facility] atorvastati n (LIPITOR) 20 MG tablet 2022-07 09:40: 04 Yes 20mg QD Take 1 tablet (20 mg total) by mouth daily. [facility] metoprolol succinate (TOPROL-XL) 25 MG 24 hr tablet 2022-07 09:13: 28 Yes 25mg QD Take 1 tablet (25 mg total) by mouth daily. [facility] Atorvastati n Calcium 20 MG oral Tablet 2022-07 00:00: 00 Yes 20mg Take 1 tablet (20 mg total) by mouth daily. Cynthia gonzalez metoprolol succinate XL 25 mg 24 hr tablet 2022-07 00:00: 00 11-27 00:00 :00 No 25mg Take 1 tablet by mouth every morning. [facility] Nitroglycer in 0.4 MG sublingual SL [...] tablet (20 mg total) by mouth daily. [facility] aspirin 81 MG EC tablet 04-03 00:00: 00 07-02 23:59 :00 No 81mg QD Take 1 tablet (81 mg total) by mouth daily for 90 days. [facility] divalproex (DEPAKOTE) 500 MG EC tablet 04-03 00:00: 00 07-02 23:59 :00 No 500mg Q.5D Take 1 tablet (500 mg total) by mouth 2 (two) times daily for 90 days. [facility] lisinopriL (PRINIVIL,Z ESTRIL) 5 MG tablet 04-03 00:00: 00 05-28 00:00 :00 No 5mg QD Take 1 tablet (5 mg total) by mouth daily. [facility] clonazePAM (KlonoPIN) 0.5 MG tablet 04-03 00:00: 00 05-03 23:59 :00 No .25mg Take 0.5 tablets (0.25 mg total) by mouth 2 (two) times daily as needed for Anxiety for up to 30 days. Max Daily Amount: 0.5 mg [facility] HYDROcodone -acetaminop hen (NORCO 10-325) 10-325 mg per tablet 04-03 00:00: 00 04-13 23:59 :00 No 1{tbl} Take 1 tablet by mouth every 6 (six) hours as needed for up to 10 days. Max Daily Amount: 4 tablets [facility] methocarbam oL (ROBAXIN) 500 MG tablet 04-03 00:00: 00 04-13 23:59 :00 No 500mg Q.25D Take 1 tablet (500 mg total) by mouth 4 (four) times daily for 10 days. [facility] gabapentin (NEURONTIN) 300 MG capsule 04-02 00:00: 00 04-03 00:00 :00 No 300mg Q.[id number] 3D Take 1 capsule (300 mg total) by mouth 3 (three) times daily for 90 days. [facility] divalproex (DEPAKOTE) 500 MG EC tablet 04-02 00:00: 00 04-03 00:00 :00 No 500mg Q.5D Take 1 tablet (500 mg total) by mouth 2 (two) times daily for 90 days. [facility] clonazePAM (KlonoPIN) 0.5 MG tablet 04-02 00:00: 00 04-03 00:00 :00 No .25mg Take 0.5 tablets (0.25 mg total) by mouth 2 (two) times daily as needed for Anxiety for up to 30 days. Max Daily Amount: 0.5 mg [facility] HYDROcodone -acetaminop hen (NORCO 10-325) 10-325 mg per tablet 04-02 00:00: 00 04-03 00:00 :00 No 1{tbl} Take 1 tablet by mouth every 6 (six) hours as needed for up to 10 days. Max Daily Amount: 4 tablets [facility] methocarbam oL (ROBAXIN) 500 MG tablet 04-02 00:00: 00 04-03 00:00 :00 No 500mg Q.25D Take 1 tablet (500 mg total) by mouth 4 (four) times daily for 10 days. [facility] Metronidazo le 500 MG oral Tablet 7-01 00:00: 00 Yes Cynthia Garcia - Nadir gonzalez Clonazepam 1 MG oral Tablet 6-30 00:00: 09-29 00:00 :00 No 1mg 1 tablet [...] tablet in the evening. [facility] Divalproex Sodium 500 MG oral Tablet [...] dose, On Arpita 12/11/22 at 1315, MICHAEL [facility] iopamidol (ISOVUE 370-500 mL) injection 80 mL 12-11 16:30: 00 12-11 16:27 :00 No [id number] 80mL 80 mL, Intravenou s, ONCE, 1 dose, On Arpita 12/11/22 at 1130, Routine [facility] nitroglycer in (NITROL) 2 % ointment 0.5 Inch 12-11 15:30: 00 12-11 14:31 :00 No .5[in_u s] 0.5 Inch, Transderma l (Apply To Skin), ONCE, 1 dose, On Thu12/11/22 at 1030, [facility] aspirin [...] 100 mg tablet 12-11 00:00: 00 Yes [id number] 100mg Take 1 tablet by mouth in [...] 1 dose, On Thu11/17/22 at 2345, MICHAEL [facility] morpHINE (4 mg/mL) injection 4 mg 11-18 03:45: 00 11-18 03:38 :00 No 4mg 4 mg, Slow IV Push, ONCE, 1 dose, On Thu11/17/22 at 2245, Routine [facility] methocarbam oL (ROBAXIN) injection 1,000 mg 11-18 00:30: 00 11-17 23:47 :00 No 1000mg 1,000 mg, Intravenou s, ONCE, 1 dose, On Thu11/17/22 at 1930, [facility] methocarbam oL 500 mg tablet 11-18 00:00: 00 12-02 00:00 :00 No [id number] 1000mg Take 2 tablets by mouth 4 [...] 1 dose, On Thu11/17/22 at 1900, Routine [facility] morpHINE (4 mg/mL) injection 4 mg 11-17 23:45: 00 11-17 23:49 :00 No 4mg 4 mg, Slow IV Push, ONCE, 1 dose, On Thu11/17/22 at 1845, Routine [facility] ondansetron (ZOFRAN (PF)) injection 4 mg 11-17 23:15: 00 11-17 23:06 :00 No 4mg 4 mg, Slow IV Push, ONCE, 1 dose, On Thu11/17/22 at 1815, MICHAEL [facility] lisinopriL (PRINIVIL,Z ESTRIL) tablet 10 mg 08-02 15:00: 00 Yes 10mg 10 mg, Oral, DAILY, First dose on Thu08/02/22 at 0900, Until Discontinu ed, Routine [facility] predniSONE (DELTASONE) tablet 40 mg 08-02 [...] Nausea and Vomiting (N/V). [facility] omega-3 fatty acids-vitam in E (FISH OIL) 1,000 mg capsule 08-01 23:49: 34 Yes 1g Take 1 g by mouth daily. [facility] pantoprazol e 40 mg EC tablet 08-01 23:49: 34 11-27 00:00 :00 No 40mg Take 40 mg by mouth daily. [facility] benzonatate (TESSALON PERLES) capsule 100 mg 08-01 20:00: 00 Yes 100mg 100 mg, Oral, Q8H, First dose on Thu08/01/22 at 1400, Until Discontinu ed, Routine [facility] ipratropium -albuteroL (DUONEB) 0.5 mg-3 mg(2.5 mg base)/3 mL nebulizer solution 3 mL 08-01 18:00: 00 Yes 3mL 3 mL, Inhalation , QID, First dose on Thu08/01/22 at 1200, Until Discontinu ed, Routine [facility] ipratropium -albuteroL (DUONEB) 0.5 mg-3 mg(2.5 mg base)/3 mL nebulizer solution 3 mL 08-01 17:07: 07 Yes 3mL 3 mL, Inhalation , QIDPRN, Starting on Thu08/01/22 at 1107, Until Discontinu ed, MICHAEL, Wheezing, Shortness of Breath [facility] sulfur hexafluorid e microsphr (LUMASON) injection 5 mL 08-01 17:00: 00 08-01 17:00 :00 No [id number] 5mL 5 mL, Intravenou s, ONCE, 1 dose, On Thu08/01/22 at 1100, Routine
business analytics faculty member approving Restricted medication : KYLEE MONTEZ [facility] pantoprazol e (PROTONIX) EC tablet 40 mg 08-01 15:00: 00 Yes 40mg 40 mg, Oral, DAILY, First dose on Thu08/01/22 at 0900, Until Discontinu ed, Routine [facility] aspirin chewable tablet 81 mg 08-01 15:00: 00 Yes 81mg 81 mg, Oral, DAILY, First dose on Thu08/01/22 at 0900, Until Discontinu ed, Routine [facility] amLODIPine (NORVASC) tablet 10 mg 08-01 15:00: 00 Yes 10mg 10 mg, Oral, DAILY, First dose on Thu08/01/22 at 0900, Until Discontinu ed, Routine [facility] levETIRAcet am (KEPPRA) tablet 500 mg 08-01 14:00: 00 08-01 23:56 :35 No 500mg 500 mg, Oral, BID, First dose on Thu08/01/22 at 0800, Until Discontinu ed, Routine [facility] carvediloL (COREG) tablet 6.25 mg 08-01 14:00: 00 08-01 17:29 :13 No 6.25mg 6.25 mg, Oral, BID MEALS, First dose on Thu08/01/22 at 0800, Until Discontinu ed, Routine [facility] levETIRAcet am (KEPPRA) in NACL (ISO-OS) [...] at 2345, Until Discontinu ed, [facility] B[facility] 100 mg 08-01 05:45: 00 Yes 100mg 100 mg, Oral, DAILY, First dose on Thu07/31/22 at 2345, Until Discontinu ed, Routine [facility] LORazepam (ATIVAN) injection 0.5 mg 08-01 05:30: 00 08-01 05:29 :00 No .5mg 0.5 mg, Slow IV Push, ONCE, 1 dose, On Thu07/31/22 at 2330, MICHAEL [facility] atorvastati n (LIPITOR) tablet 40 mg 08-01 03:00: 00 Yes 40mg 40 mg, Oral, QHS, First dose on Thu07/31/22 at 2100, Until Discontinu ed, Routine [facility] diphenhydrA MINE (BENADRYL) tablet 25 mg 08-01 00:32: 02 Yes 25mg 25 mg, Oral, Q6HPRN, Starting on Thu07/31/22 at 1832, Until Discontinu ed, Routine, Itching [facility] enoxaparin (LOVENOX) injection 40 mg 07-31 23:00: 00 Yes 40mg 40 mg, Subcutaneo us, DAILY, First dose on Thu07/31/22 at 1700, Until Discontinu ed, Routine [facility] morpHINE (2 mg/mL) injection 2 mg 07-31 23:00: 00 07-31 22:29 :00 No 2mg 2 mg, Slow IV Push, ONCE, 1 dose, On Thu07/31/22 at 1700, Routine [facility] HYDROcodone -acetaminop hen (NORCO) 10-325 mg tablet 1 tablet 07-31 22:01: 36 Yes 1{tbl} 1 tablet, Oral, Q6HPRN, Starting on Thu07/31/22 at 1601, Until Discontinu ed, Routine, Pain (scale 7-10) [facility] HYDROcodone -acetaminop hen (NORCO 5) 5-325 mg tablet 1 tablet 07-31 22:01: 34 08-02 22:00 :34 No 1{tbl} 1 tablet, Oral, Q6HPRN, Starting on Thu07/31/22 at 1601, Until 08/02/22 at 1600, Routine, Pain (scale 4-6) [facility] acetaminoph en (TYLENOL) tablet [...] 2021-07 00:00: 00 05-12 04:59 :00 No [id number] 4mg Take 1 tablet through enteral tube in the morning for 1 dose. [facility] Methylpredn isolone 4 mg tablet 2021-07 00:00: 00 05-11 04:59 :00 No [id number] 4mg Take 1 tablet through enteral tube [...] by mouth daily. [facility] DULoxetine 30 mg capsule 2021-07 14:00: 00 Yes 30mg Take 1 capsule by mouth in the morning. [facility] divalproex (DEPAKOTE) EC tablet 1,000 mg 2021-07 13:00: 00 Yes 1000mg 1,000 mg, Oral, BID, First dose (after last modificati on) on Thu05/08/22 at 0800, Until Discontinu ed, Routine [facility] Methylpredn isolone (MEDROL) tablet 4 mg 2021-07 08:50: 10 05-09 08:59 :00 No 4mg 4 mg, Oral, Q8H TAPER, 3 doses, First dose on Thu05/08/22 at 0400, Last dose on Thu05/08/22 at 2000, Routine [facility] acetaminoph en-codeine (TYLENOL #3) [...] 5 mg tablet 2021-07 00:00: 00 Yes [id number] 5mg Take 1 tablet by mouth in the morning and 1 tablet at noon and 1 tablet in the evening. [facility] DULoxetine (CYMBALTA) 30 mg capsule 2021-07 00:00: 00 06-08 05:59 :00 No [id number] 60mg Take 2 capsules by mouth in the morning for [facility] days[facility] divalproex (DEPAKOTE) 250 mg EC tablet 2021-07 00:00: 00 06-08 05:59 :00 No [id number] 750mg Take 3 tablets by mouth every 8 (eight) hours for 30 days. [facility] LORazepam 1 mg tablet 2021-07 00:00: 00 05-19 04:59 :00 No [id number] 1mg Take 1 tablet by mouth every 6 (six) hours as needed for Anxiety or Agitation for up to 10 days. [facility] acetaminoph en-codeine 300-30 mg tablet 2021-07 00:00: 00 05-16 04:59 :00 No [id number] 1{tbl} Take 1 tablet by mouth every 4 (four) hours as needed for Pain (scale 7-10) for up to 7 days. Indication s: acute pain [facility] Methylpredn isolone 4 mg tablet 2021-07 00:00: 00 05-10 04:59 :00 No [id number] 4mg Take 1 tablet by mouth every 8 (eight) hours for 3 doses. [facility] divalproex (DEPAKOTE) EC tablet 750 mg 2021-07 01:00: 00 05-08 09:40 :23 No 750mg 750 mg, Oral, BID, First dose on Thu05/06/22 at 2000, Until Discontinu ed, Routine [facility] levETIRAcet am (KEPPRA) tablet 1,500 mg 2021-07 13:00: 00 05-06 18:38 :22 No 1500mg 1,500 mg, Oral, BID, First dose (after last modificati on) on Thu05/06/22 at 0800, Until Discontinu ed, Routine [facility] levETIRAcet am (KEPPRA) in NACL (ISO-OS) 1,000 mg/100 mL RTU 2021-07 05:00: 00 05-06 05:46 :00 No 1000mg 1,000 mg, IV Piggyback, ONCE, 1 dose, On Thu05/06/22 at 0000, Administer over 15 Minutes, 100 mL [facility] methocarbam oL (ROBAXIN) tablet 500 mg 2021-07 02:15: 00 05-06 23:21 :42 No 500mg 500 mg, Oral, QID, First dose on Thu05/05/22 at 2115, Until Discontinu ed, Routine [facility] LORazepam (ATIVAN) tablet 2 mg 2021-07 01:30: 00 05-06 01:03 :00 No 2mg 2 mg, Oral, ONCE, 1 dose, On Thu05/05/22 at 2030, Routine [facility] levETIRAcet am (KEPPRA) tablet 1,000 mg 2021-07 01:00: 00 05-06 04:48 :06 No 1000mg 1,000 mg, Oral, BID, First dose on Thu05/05/22 at 2000, Until Discontinu ed, Routine [facility] enoxaparin (LOVENOX) injection 40 mg 2021-07 00:15: 00 Yes 40mg 40 mg, Subcutaneo us, Q24H, First dose on Thu05/05/22 at 1915, Until Discontinu ed, Routine [facility] levETIRAcet am (KEPPRA) in NACL (ISO-OS) 1,000 mg/100 mL RTU 2021-07 19:45: 00 05-05 20:05 :00 No 1000mg 1,000 mg, IV Piggyback, ONCE, 1 dose, On Thu05/05/22 at 1445, Administer over 15 Minutes, 100 mL [facility] clonazePAM (KLONOPIN) tablet 0.5 mg 2021-07 19:30: 00 Yes .5mg 0.5 mg, Oral, BID, First dose on Thu05/05/22 at 1430, Until Discontinu ed, [facility] ([facility] 600 mg 2021-07 19:30: 00 Yes 600mg 600 mg, Oral, TID MEALS, First dose on Thu05/05/22 at 1430, Until Discontinu ed, Routine [facility] gabap[facility] (NEURONTIN) capsule 300 mg 2021-07 19:30: 00 Yes 300mg 300 mg, Oral, TID, First dose on Thu05/05/22 at 1430, Until Discontinu ed, Routine [facility] cyclobenzap rine (FLEXERIL) tablet 5 mg 2021-07 19:30: 00 Yes 5mg 5 mg, Oral, TID, First dose on Thu05/05/22 at 1430, Until Discontinu ed, Routine [facility] acetaminoph en (TYLENOL) tablet 1,000 mg 2021-07 19:30: 00 Yes 1000mg 1,000 mg, Oral, Q8H, First dose on Thu05/05/22 at 1430, Until Discontinu ed, Routine [facility] pantoprazol e (PROTONIX) EC tablet 40 mg 2021-07 14:00: 00 Yes 40mg 40 mg, Oral, DAILY, First dose on Thu05/05/22 at 0900, Until Discontinu ed, Routine [facility] docusate (COLACE) capsule 100 mg 2021-07 14:00: 00 Yes 100mg 100 mg, Oral, DAILY, First dose on Thu05/05/22 at 0900, Until Discontinu ed, [facility]ine [facility] HYDROcodone -acetaminop hen (NORCO) 10-325 mg tablet 1 tablet 2021-07 10:32: 02 05-05 19:18 :52 No 1{tbl} 1 tablet, Oral, Q6HPRN, Starting on Thu05/05/22 at 0532, Until Thu05/05/22 at 1418, Routine, Pain (scale 7-10) [facility] ondansetron (ZOFRAN (PF)) injection 4 mg [...] 1 dose, On 05/04/22 at 2300, Routine [facility] morpHINE (2 mg/mL) injection 2 mg 2021-07 04:00: 00 05-05 03:26 :00 No 2mg 2 mg, Slow IV Push, ONCE, 1 dose, On 05/04/22 at 2300, Routine [facility] aspirin 81 mg chewable tablet 04-16 00:00: 00 Yes [id number] 81mg Take 1 tablet by mouth in [...] ketorolac (TORADOL) injection 15 mg 04-15 02:13: 04-15 02:22 :00 No 15mg 15 mg, Slow IV Push, ONCE, 1 dose, On Thu04/14/22 at 2115, Routine [facility] levETIRAcet am 1,000 mg tablet 04-15 00:00: 00 Yes [id number] 1000mg Take 1 tablet by mouth in the morning and 1 tablet in the evening. [facility] atorvastati n 40 mg tablet 04-15 00:00: 00 01-09 00:00 :00 No [id number] 40mg Take 1 tablet by mouth at bedtime. [facility] lidocaine 5 % (700 mg/patch) patch 04-15 00:00: 00 04-23 04:59 :00 No [id number] 1{patch } Apply 1 Patch to area(s) [...] 1 Patch, Topical, Administer over 12 Hours, [id number], Starting on Thu04/14/22 at 1645, Until Discontinu ed, Routine, Localized pain [facility] aspirin chewable tablet 81 mg 04-14 [...] Temp > 37.5 C [facility] HYDROcodone -acetaminop hen (NORCO) 10-325 mg tablet 1 tablet 04-14 21:29: 02 04-15 05:39 :41 No 1{tbl} 1 tablet, Oral, Q6HPRN, Starting on Thu04/14/22 at 1629, Until Thu04/15/22 at 0039, Routine, Pain (scale 7-10), Pain (scale 4-6) [facility] sulfur hexafluorid e microsphr (LUMASON) injection 5 mL 04-14 16:45: 00 04-14 16:45 :00 No [id number] 5mL 5 mL, Intravenou s, ONCE, 1 dose, On Thu04/14/22 at 1145, Routine
business analytics faculty member approving Restricted medication : MADELINE PIERRE [facility] clopidogreL (PLAVIX) 75 mg tablet 75 mg 04-14 14:00: 00 Yes 75mg 75 mg, Oral, DAILY, First dose on Thu04/14/22 at 0900, Until Discontinu ed, Routine [facility] pantoprazol e (PROTONIX) EC tablet 40 mg 04-14 14:00: 00 Yes 40mg 40 mg, Oral, DAILY, First dose on Thu04/14/22 at 0900, Until Discontinu ed, Routine [facility] atorvastati n (LIPITOR) tablet 40 mg 04-14 02:00: 00 Yes 40mg 40 mg, Oral, QHS, First dose on Thu04/13/22 at 2100, Until Discontinu ed, Routine [facility] LORazepam (ATIVAN) tablet 1 mg 04-14 01:30: 00 04-14 01:45 :00 No 1mg 1 mg, Oral, ONCE, 1 dose, On Thu04/13/22 at 2030, Routine [facility] methocarbam oL (ROBAXIN) tablet 500 mg 04-14 01:00: 00 Yes 500mg 500 mg, Oral, QID, First dose on Thu04/13/22 at 2000, Until Discontinu ed, Routine [facility] heparin (porcine) injection 5,000 Units 04-14 01:00: 00 Yes 5000U 5,000 Units, Subcutaneo us, Q12H, First dose on Thu04/13/22 at 2000, Until Discontinu ed, Routine [facility] acetaminoph en (TYLENOL) tablet 650 mg 04-14 00:23: 25 04-14 21:29 :42 No 650mg 650 mg, Oral, Q6HPRN, Starting on Thu04/13/22 at 1923, Until Thu04/14/22 at 1629, Routine, Pain (scale 1-3), Pain (scale 4-6), Temp > 38.5 C, Temp > 37.5 C [facility] (LIDODERM[facility] 5 % (700 mg/patch) patch 1 Patch 04-14 00:22: 00 04-14 13:51 :00 No 1{patch } 1 Patch, Topical, Administer over 12 Hours, ONCE, 1 dose, On Thu04/13/22 at 1930, [facility] FENT[facility] PF (SUBLIMAZE (PF)) injection 50 mcg 04-13 20:30: 00 04-13 19:22 :00 No 50ug 50 mcg, Slow IV Push, ONCE, 1 dose, On Thu04/13/22 at 1530, [facility]ine [facility] chewable tablet 650 mg 04-13 20:15: 00 04-13 20:15 :00 No 650mg 650 mg, Oral, ONCE, 1 dose, On Thu04/13/22 at 1515, Routine [facility] clopidogreL (PLAVIX) 300 mg tablet 300 mg 04-13 20:00: 00 04-13 19:15 :00 No 300mg 300 mg, Oral, ONCE, 1 dose, On Thu04/13/22 at 1500, Routine [facility] ondansetron (ZOFRAN (PF)) injection 4 mg 04-13 19:30: 00 04-13 19:22 :00 No 4mg 4 mg, Slow IV Push, ONCE, 1 dose, On 04/13/22 at 1430, [facility] iopamidol (ISOVUE 370-500 mL) injection 100 mL 04-13 18:31: 00 04-13 18:32 :00 No [id number] 100mL 100 mL, Intravenou s, ONCE, 1 dose, On 04/13/22 at 1345, Routine [facility] NaCl [...] ONCE, 1 dose, On 11/23/21 at 1730, [facility] acetaminoph en (TYLENOL) tablet 1,000 mg 11-23 22:15: 00 11-23 21:09 :00 No 1000mg 1,000 mg, Oral, ONCE, 1 dose, On 11/23/21 at 1715, [facility] ondansetron (ZOFRAN (PF)) injection 4 mg 11-23 21:45: 00 11-23 20:30 :00 No 4mg 4 mg, Slow IV Push, ONCE, 1 dose, On 11/23/21 at 1645, [facility] NaCl 0.9% (NS) bolus infusion 1,000 mL 11-23 21:30: 00 11-23 21:56 :00 No 1000mL at 999 mL/hr, 1,000 mL, IV Infusion, ONCE, 1 dose, On 11/23/21 at 1630, MICHAEL Univers [facility] LORazepam (ATIVAN) injection 4 mg 11-23 21:30: 00 11-23 20:23 :00 No 4mg 4 mg, Slow IV Push, ONCE, 1 dose, On 11/23/21 at 1630, STAT Univers [facility] levETIRAcet am (KEPPRA) in NACL (ISO-OS) 1,500 mg/100 mL RTU 11-23 21:30: 00 11-23 20:47 :00 No 1500mg 1,500 mg, IV Piggyback, ONCE, 1 dose, On 11/23/21 at 1630, Administer over 15 Minutes, 100 mL [facility] Dose Unknown 2021-0 4-08 00:00: 00 No Dose Unknown 0 [...] Push, ONCE, 1 dose, 03/16/21 at 2100, [facility] ipratropium -albuteroL (DUONEB) 0.5 mg-3 mg(2.5 mg base)/3 mL nebulizer solution 3 mL 03-17 01:57: 00 03-17 02:15 :00 No 3mL 3 mL, Inhalation , ONCE, 1 dose, 03/16/21 at 2099, [facility] NaCl 0.9% (NS) IV infusion 1,000 mL 03-17 01:57: 00 03-17 03:07 :00 No 1000mL at 999 mL/hr, Intravenou s, ONCE, 1 dose, 03/16/21 at 2099, [facility] methylpredn isolone sod succ (SOLU-MEDRO L) injection 125 mg 03-17 01:57: 00 03-17 02:11 :00 No 125mg 125 mg, Slow IV Push, ONCE, 1 dose, 03/16/21 at 2099, STAT [facility] levoFLOXaci n 500 mg tablet 03-17 00:00: 00 03-24 04:59 :00 No [id number] 500mg Take 1 tablet by mouth daily for 6 days. [facility] predniSONE 10 mg tablet 03-17 00:00: 00 03-22 04:59 :00 No [id number] 30mg Take 3 tablets by mouth daily for 4 days. [facility] albuterol (VENTOLIN) inhaler 4 Puff 03-15 01:45: 00 03-15 00:44 :00 No [id number] 4{puff} 4 Puff, Inhalation , ONCE, 1 dose, Arpita 03/14/21 at 2044, Routine [facility] dexamethaso ne (DECADRON) injection 10 mg 03-15 01:45: 00 03-15 00:45 :00 No [id number] 10mg 10 mg, Intramuscu lar, ONCE, 1 dose, Arpita 03/14/21 at 2044, Routine [facility] albuterol 2.5 mg /3 mL (0.083 %) nebulizer solution 03-15 00:00: 00 01-09 00:00 :00 No [id number] 2.5mg Inhale 3 mL every 4 (four) [...] ONCE, 1 dose, Thu02/19/21 at 1200, MICHAEL [facility] iopamidol (ISOVUE 370-500 mL) injection 100 mL 02-19 16:35: 00 02-19 16:45 :00 No [id number] 100mL 100 mL, Intravenou s, ONCE, 1 dose, e 02/19/21 at 1145, Routine [facility] levetiracet am (KEPPRA ORAL) 02-19 14:45: 33 Yes Take by mouth. [facility] dicyclomine 20 mg tablet 02-19 00:00: 00 01-09 00:00 :00 No [id number] 20mg Take 1 tablet by mouth 4 (four) times daily as needed for Abdominal pain. [facility] proMETHazin e 25 mg tablet 02-19 00:00: 00 11-27 00:00 :00 No [id number] 25mg Take 1 tablet by mouth every 6 (six) hours as needed for Nausea and Vomiting (N/V). [facility] ZONISAMIDE 100 mg capsule [...] BA-SUCROSE VACCINE (ROSE TOP) 2022-02-19 00:00:00 Completed [facility] SARS-COV-2 COVID-19 PFIZER BA-SUCROSE VACCINE (ROSE TOP) 2022-02-19 00:00:00 Completed [facility] SARS-COV-2 COVID-19 PFIZER BA-SUCROSE VACCINE (ROSE TOP) 2022-02-19 00:00:00 Completed [facility] SARS-COV-2 COVID-19 PFIZER BA-SUCROSE VACCINE (ROSE TOP) 2022-02-19 00:00:00 Completed [facility] SARS-COV-2 COVID-19 PFIZER BA-SUCROSE VACCINE (ROSE TOP) 2022-02-19 00:00:00 Completed [facility] SARS-COV-2 COVID-19 PFIZER BA-SUCROSE VACCINE (ROSE TOP) 2022-02-19 00:00:00 Completed [facility] SARS-COV-2 COVID-19 PFIZER BA-SUCROSE VACCINE (ROSE TOP) 2022-02-19 00:00:00 Completed [facility] SARS-COV-2 COVID-19 PFIZER BA-SUCROSE VACCINE (ROSE TOP) 2022-02-19 00:00:00 Completed [facility] SARS-COV-2 COVID-19 PFIZER BA-SUCROSE VACCINE (ROSE TOP) 2022-02-19 00:00:00 Completed [facility] SARS-COV-2 COVID-19 PFIZER VACCINE 2021-05-24 00:00:00 Completed [facility] SARS-COV-2 COVID-19 PFIZER VACCINE 2021-05-24 00:00:00 Completed [facility] SARS-COV-2 COVID-19 PFIZER VACCINE 2021-05-24 00:00:00 Completed [facility] SARS-COV-2 COVID-19 PFIZER VACCINE 2021-05-24 00:00:00 Completed [facility] SARS-COV-2 COVID-19 PFIZER VACCINE 2021-05-24 00:00:00 Completed [facility] SARS-COV-2 COVID-19 PFIZER VACCINE 2021-05-24 00:00:00 Completed [facility] SARS-COV-2 COVID-19 PFIZER VACCINE 2021-05-24 00:00:00 Completed [facility] SARS-COV-2 COVID-19 PFIZER VACCINE 2021-05-24 00:00:00 Completed [facility] SARS-COV-2 COVID-19 PFIZER VACCINE 2021-05-24 00:00:00 Completed [facility] SARS-COV-2 COVID-19 PFIZER VACCINE 2021-05-24 00:00:00 Completed [facility] SARS-COV-2 COVID-19 PFIZER VACCINE 2021-05-24 00:00:00 Completed [facility] SARS-COV-2 COVID-19 PFIZER VACCINE 2021-05-03 00:00:00 Completed [facility] SARS-COV-2 COVID-19 PFIZER VACCINE 2021-05-03 00:00:00 Completed [facility] SARS-COV-2 COVID-19 PFIZER VACCINE 2021-05-03 00:00:00 Completed [facility] SARS-COV-2 COVID-19 PFIZER VACCINE 2021-05-03 00:00:00 Completed [facility] SARS-COV-2 COVID-19 PFIZER VACCINE 2021-05-03 00:00:00 Completed [facility] SARS-COV-2 COVID-19 PFIZER VACCINE 2021-05-03 00:00:00 Completed [facility] SARS-COV-2 COVID-19 PFIZER VACCINE 2021-05-03 00:00:00 Completed [facility] SARS-COV-2 COVID-19 PFIZER VACCINE 2021-05-03 00:00:00 Completed [facility] SARS-COV-2 COVID-19 PFIZER VACCINE 2021-05-03 00:00:00 Completed [facility] SARS-COV-2 COVID-19 PFIZER VACCINE 2021-05-03 00:00:00 Completed [facility] SARS-COV-2 COVID-19 PFIZER VACCINE 2021-05-03 00:00:00 Completed [facility] SARS-COV-2 COVID-19 PFIZER VACCINE 2021-05-03 00:00:00 Completed [facility] SARS-COV-2 COVID-19 PFIZER VACCINE Unknown Completed [facility] SARS-COV-2 COVID-19 PFIZER BA-SUCROSE VACCINE (ROSE TOP) Unknown [facility]OV[facility] COVID-19 PFIZER BA-SUCROSE VACCINE (ROSE TOP) Unknown Completed [facility] SARS-COV-2 COVID-19 PFIZER VACCINE Unknown Completed [facility] SARS-COV-2 COVID-19 PFIZER VACCINE Unknown Completed [facility] SARS-COV-2 COVID-19 PFIZER BA-SUCROSE VACCINE (ROSE TOP) Unknown [facility] SARS-COV-2 COVID-19 PFIZER VACCINE Unknown Completed [facility] SARS-COV-2 COVID-19 PFIZER BA-SUCROSE VACCINE (ROSE TOP) Unknown Completed [facility] SARS-COV-2 COVID-19 PFIZER VACCINE Unknown Completed [facility] SARS-COV-2 COVID-19 PFIZER BA-SUCROSE VACCINE (ROSE TOP) Unknown Completed [facility] SARS-COV-2 COVID-19 PFIZER VACCINE Unknown Completed [facility] SARS-COV-2 COVID-19 PFIZER BA-SUCROSE VACCINE (ROSE TOP) Unknown Completed [facility] SARS-COV-2 COVID-19 PFIZER VACCINE Unknown Completed [facility] SARS-COV-2 COVID-19 PFIZER BA-SUCROSE VACCINE (ROSE TOP) Unknown Completed [facility] SARS-COV-2 COVID-19 PFIZER VACCINE Unknown Completed [facility] SARS-COV-2 COVID-19 PFIZER BA-SUCROSE VACCINE (ROSE TOP) Unknown [facility] SARS-COV-2 COVID-19 PFIZER VACCINE Unknown Completed [facility] SARS-COV-2 COVID-19 PFIZER BA-SUCROSE VACCINE (ROSE TOP) Unknown Completed [facility] SARS-COV-2 COVID-19 PFIZER VACCINE Unknown Completed [facility] SARS-COV-2 COVID-19 PFIZER BA-SUCROSE VACCINE (ROSE TOP) Unknown Completed [facility] SARS-COV-2 COVID-19 PFIZER VACCINE Unknown Completed [facility] SARS-COV-2 COVID-19 PFIZER BA-SUCROSE VACCINE (ROSE TOP) Unknown Completed [facility] SARS-COV-2 COVID-19 PFIZER VACCINE Unknown Completed [facility] SARS-COV-2 COVID-19 PFIZER BA-SUCROSE VACCINE (ROSE TOP) Unknown Completed [facility] SARS-COV-2 COVID-19 PFIZER VACCINE Unknown Completed [facility] SARS-COV-2 COVID-19 PFIZER BA-SUCROSE VACCINE (ROSE TOP) Unknown Completed [facility] SARS-COV-2 COVID-19 PFIZER VACCINE Unknown Completed [facility] SARS-COV-2 COVID-19 PFIZER BA-SUCROSE VACCINE (ROSE TOP) Unknown Completed [facility] Vital Signs Vital Name Observation Time Observation Value Comments S ource Systolic blood pressure 2024-08-10 15:08:00 164 mm[Hg] [facility] Diastolic blood pressure 2024-08-10 15:08:00 87 mm[Hg] [facility] Heart rate 2024-08-10 15:08:00 90 /min [facility] Body temperature 2024-08-10 15:08:00 36.44 Radha [facility] Respiratory rate 2024-08-10 15:08:00 20 /min [facility] Oxygen saturation in Arterial blood by Pulse oximetry 2024-08-10 15:08:00 97 /min [facility] Body height 2024-08-10 05:20:00 160 cm [facility] Body weight 2024-08-10 05:20:00 81.647 kg [facility] BMI 2024-08-10 05:20:00 31.89 kg/m2 [facility] Systolic blood pressure 2024-08-10 15:08:00 164 mm[Hg] [facility] Diastolic blood pressure 2024-08-10 15:08:00 87 mm[Hg] [facility] Heart rate 2024-08-10 15:08:00 90 /min Suma Bolaños [facility] Body temperature 2024-08-10 15:08:00 36.44 Radha [facility] Respiratory rate 2024-08-10 15:08:00 20 /min [facility] Miky [facility] Oxygen saturation in Arterial blood by Pulse oximetry 2024-08-10 15:08:00 97 /min [facility] Body height 2024-08-10 05:20:00 160 cm Jeffreytavo Bolaños [facility] Body weight 2024-08-10 05:20:00 81.647 kg Jeffreytavo Bolaños [facility] BMI 2024-08-10 05:20:00 31.89 kg/m2 Jeffreytavo avila [facility] Systolic blood pressure 2024-04-03 05:10:00 111 mm[Hg] [facility] Diastolic blood pressure 2024-04-03 05:10:00 65 mm[Hg] [facility] Heart rate 2024-04-03 05:10:00 70 /min [facility] Respiratory rate 2024-04-03 05:10:00 23 /min [facility] Oxygen saturation in Arterial blood by Pulse oximetry 2024-04-03 05:10:00 97 /min [facility] Body temperature 2024-04-03 01:49:00 37.33 Radha [facility] Body height 2024-04-03 01:49:00 157.5 cm [facility] Body weight 2024-04-03 01:49:00 90.719 kg [facility] BMI 2024-04-03 01:49:00 36.58 kg/m2 [facility] Systolic blood pressure 2024-01-13 04:50:00 103 mm[Hg] [facility] Diastolic blood pressure 2024-01-13 04:50:00 72 mm[Hg] [facility] Heart rate 2024-01-13 04:50:00 85 /min [facility] Body temperature 2024-01-13 04:50:00 36.67 Radha [facility] Oxygen saturation in Arterial blood by Pulse oximetry 2024-01-13 04:50:00 99 /min [facility] Respiratory rate 2024-01-13 04:40:00 19 /min [facility] Body height 2024-01-13 03:06:00 160 cm [facility] Body weight 2024-01-13 03:06:00 81.194 kg [facility] BMI 2024-01-13 03:06:00 31.71 kg/m2 [facility] Systolic blood pressure 2024-01-10 20:00:00 95 mm[Hg] [facility] Diastolic blood pressure 2024-01-10 20:00:00 71 mm[Hg] [facility] Heart rate 2024-01-10 20:00:00 73 /min [facility] Body temperature 2024-01-10 20:00:00 36.83 Radha [facility] Respiratory rate 2024-01-10 20:00:00 23 /min [facility] Oxygen saturation in Arterial blood by Pulse oximetry 2024-01-10 20:00:00 94 /min [facility] Body weight 2024-01-10 09:00:00 81.466 kg [facility] BMI 2024-01-10 09:00:00 32.85 kg/m2 [facility] Body height 2024-01-09 21:10:00 157.5 cm [facility] Heart rate 2023-12-15 12:35:00 73 /min [facility] Respiratory rate 2023-12-15 12:35:00 18 /min [facility] Oxygen saturation in Arterial blood by Pulse oximetry 2023-12-15 12:35:00 95 /min [facility] Systolic blood pressure 2023-12-15 12:20:00 105 mm[Hg] [facility] Diastolic blood pressure 2023-12-15 12:20:00 64 mm[Hg] [facility] Body temperature 2023-12-15 12:20:00 36.11 Radha [facility] Body weight 2023-12-15 08:12:00 78.472 kg [facility] BMI 2023-12-15 08:12:00 30.65 kg/m2 [facility] Body height 2023-12-15 02:10:00 160 cm [facility] Systolic blood pressure 2023-12-03 23:00:00 106 mm[Hg] [facility] Diastolic blood pressure 2023-12-03 23:00:00 75 mm[Hg] [facility] Heart rate 2023-12-03 23:00:00 108 /min [facility] Body temperature 2023-12-03 23:00:00 36.61 Radha [facility] Respiratory rate 2023-12-03 23:00:00 17 /min [facility] Oxygen saturation in Arterial blood by Pulse oximetry 2023-12-03 23:00:00 96 /min [facility] Body height 2023-12-03 19:39:00 160 cm [facility] Body weight 2023-12-03 19:39:00 90.7 kg [facility] BMI 2023-12-03 19:39:00 35.43 kg/m2 [facility] Systolic blood pressure 2023-11-28 16:39:00 91 mm[Hg] [facility] Diastolic blood pressure 2023-11-28 16:39:00 65 mm[Hg] [facility] Heart rate 2023-11-28 16:39:00 105 /min [facility] Body temperature 2023-11-28 16:39:00 36.28 Radha [facility] Respiratory rate 2023-11-28 16:39:00 20 /min [facility] Oxygen saturation in Arterial blood by Pulse oximetry 2023-11-28 16:39:00 97 /min [facility] Body weight 2023-11-28 01:00:00 84 kg [facility] BMI 2023-11-28 01:00:00 32.81 kg/m2 [facility] Body height 2023-11-22 07:10:00 160 cm [facility] Systolic blood pressure 2023-11-23 19:43:25 123 mm[Hg] [facility] Diastolic blood pressure 2023-11-23 19:43:25 79 mm[Hg] [facility] Respiratory rate 2023-11-23 19:43:25 17 /min [facility] Oxygen saturation in Arterial blood by Pulse oximetry 2023-11-23 19:43:25 97 /min [facility] Heart rate 2023-11-23 19:20:46 122 /min [facility] Body temperature 2023-11-23 15:00:00 36.22 Radha [facility] Body height 2023-11-22 07:10:00 160 cm [facility] Body weight 2023-11-22 07:10:00 94.484 kg [facility] BMI 2023-11-22 07:10:00 35.16 kg/m2 [facility] Systolic blood pressure 2023-09-11 17:27:00 122 mm[Hg] [facility]thia [facility] Diastolic blood pressure 2023-09-11 17:27:00 74 mm[Hg] [facility] Heart rate 2023-09-11 17:27:00 80 /min Kelse y Seybold - External Body temperature 2023-09-11 [...] Pulse oximetry 2023-09-11 17:27:00 97 /min Cynthia [facility] Systolic blood pressure 2023-08-12 21:00:00 130 mm[Hg] [facility] Diastolic blood pressure 2023-08-12 21:00:00 85 mm[Hg] [facility] Heart rate 2023-08-12 21:00:00 106 /min [facility] Respiratory rate 2023-08-12 21:00:00 14 /min [facility] Oxygen saturation in Arterial blood by Pulse oximetry 2023-08-12 21:00:00 95 /min [facility] Body temperature 2023-08-12 20:34:54 37.22 Radha [facility] Body height 2023-08-12 19:47:00 157.5 cm [facility] Body weight 2023-08-12 19:47:00 81.647 kg [facility] BMI 2023-08-12 19:47:00 32.92 kg/m2 [facility] WEIGHT 2023-06-16 05:26:00 86.047 [...] Center Respiratory rate 2022-12-11 20:00:00 24 /min [facility] Heart rate 2022-12-11 18:00:00 101 /min [facility] Oxygen saturation in Arterial blood by Pulse oximetry 2022-12-11 18:00:00 93 /min [facility] BMI 2022-12-11 13:55:00 35.43 kg/m2 [facility] Body temperature 2022-12-11 13:55:00 37.22 Radha [facility] Body weight 2022-12-11 13:55:00 90.719 kg [facility] Systolic blood pressure 2022-11-18 05:34:00 152 mm[Hg] [facility] Diastolic blood pressure 2022-11-18 05:34:00 98 mm[Hg] [facility] Heart rate 2022-11-18 05:34:00 88 /min [facility] Respiratory rate 2022-11-18 05:34:00 18 /min [facility] Oxygen saturation in Arterial blood by Pulse oximetry 2022-11-18 05:34:00 97 /min [facility] Body temperature 2022-11-17 22:28:00 37.06 Radha [facility] Body height 2022-11-17 22:28:00 160 cm [facility] Body weight 2022-11-17 22:28:00 99.791 kg [facility] BMI 2022-11-17 22:28:00 38.97 kg/m2 [facility] Heart rate 2022-08-02 02:02:00 108 /min [facility] Respiratory rate 2022-08-02 02:02:00 28 /min [facility] Oxygen saturation in Arterial blood by Pulse oximetry 2022-08-02 02:02:00 97 /min [facility] Body temperature 2022-08-02 01:00:00 36.44 Radha [facility] Systolic blood pressure 2022-08-01 23:29:00 145 mm[Hg] [facility] Diastolic blood pressure 2022-08-01 23:29:00 103 mm[Hg] [facility] Body weight 2022-08-01 09:16:00 97.977 kg [facility] BMI 2022-08-01 09:16:00 38.26 kg/m2 [facility] Body height 2022-07-31 21:54:00 160 cm [facility] Systolic blood pressure 2022-05-08 16:40:00 146 mm[Hg] [facility] Diastolic blood pressure 2022-05-08 16:40:00 96 mm[Hg] [facility] Heart rate 2022-05-08 16:40:00 112 /min [facility] Body temperature 2022-05-08 16:40:00 36.78 Radha [facility] Respiratory rate 2022-05-08 16:40:00 18 /min [facility] Oxygen saturation in Arterial blood by Pulse oximetry 2022-05-08 16:40:00 94 /min [facility] Body height 2022-05-05 23:44:00 160 cm [facility] Body weight 2022-05-05 23:37:00 81.647 kg [facility] BMI 2022-05-05 23:37:00 31.89 kg/m2 [facility] Systolic blood pressure 2022-04-15 18:52:00 104 mm[Hg] [facility] Diastolic blood pressure 2022-04-15 18:52:00 82 mm[Hg] [facility] Heart rate 2022-04-15 18:52:00 114 /min [facility] Oxygen saturation in Arterial blood by Pulse oximetry 2022-04-15 18:52:00 98 /min [facility] Body temperature 2022-04-15 16:14:00 36.28 Radha [facility] Respiratory rate 2022-04-15 16:14:00 17 /min [facility] Body height 2022-04-13 21:08:00 160 cm [facility] Body weight 2022-04-13 21:08:00 91.173 kg [facility] [facility] 2022-04-13 21:08:00 35.61 kg/m2 [facility] Systolic blood pressure 2021-11-23 21:30:00 132 mm[Hg] [facility] Diastolic blood pressure 2021-11-23 21:30:00 76 mm[Hg] [facility] Heart rate 2021-11-23 21:30:00 95 /min [facility] Respiratory rate 2021-11-23 21:30:00 13 /min [facility] Oxygen saturation in Arterial blood by Pulse oximetry 2021-11-23 21:30:00 97 /min [facility] Body temperature 2021-11-23 20:15:00 37.56 Radha [facility] Systolic blood pressure 2021-03-17 03:00:00 117 mm[Hg] [facility] Diastolic blood pressure 2021-03-17 03:00:00 76 mm[Hg] [facility] Heart rate 2021-03-17 03:00:00 104 /min [facility] Respiratory rate 2021-03-17 03:00:00 28 /min [facility] Oxygen saturation in Arterial blood by Pulse oximetry 2021-03-17 03:00:00 96 /min [facility] Body temperature 2021-03-17 00:39:00 37.11 Radha [facility] Body height 2021-03-17 00:39:00 160 cm [facility] Body weight 2021-03-17 00:39:00 58.968 kg [facility] BMI 2021-03-17 00:39:00 23.03 kg/m2 [facility] Systolic blood pressure 2021-03-15 00:14:00 149 mm[Hg] [facility] Diastolic blood pressure 2021-03-15 00:14:00 78 mm[Hg] [facility] Heart rate 2021-03-15 00:14:00 100 /min [facility] Body temperature 2021-03-15 00:14:00 37.33 Radha [facility] Respiratory rate 2021-03-15 00:14:00 24 /min [facility] Body height 2021-03-15 00:14:00 160 cm [facility] Body weight 2021-03-15 00:14:00 58.968 kg [facility] BMI 2021-03-15 00:14:00 23.03 kg/m2 [facility] Oxygen saturation in Arterial blood by Pulse oximetry 2021-03-15 00:14:00 98 /min [facility] Systolic blood pressure 2021-02-19 18:00:00 131 mm[Hg] [facility] Diastolic blood pressure 2021-02-19 18:00:00 80 mm[Hg] [facility] Heart rate 2021-02-19 18:00:00 83 /min [facility] Respiratory rate 2021-02-19 18:00:00 18 /min [facility] Oxygen saturation in Arterial blood by Pulse oximetry 2021-02-19 18:00:00 100 /min [facility] Body temperature 2021-02-19 15:47:00 37 Radha [facility] Body height 2021-02-19 15:47:00 160 cm [facility] Body weight 2021-02-19 15:47:00 58.968 kg [facility] BMI 2021-02-19 15:47:00 23.03 kg/m2 [facility] Heart rate 2023-09-08 08:54:00 118 /min [facility] Respiratory rate 2023-09-08 08:54:00 21 /min [facility] Oxygen saturation in Arterial blood by Pulse oximetry 2023-09-08 08:54:00 100 /min [facility] Systolic blood pressure 2023-09-08 08:32:00 110 mm[Hg] [facility] Diastolic blood pressure 2023-09-08 08:32:00 77 mm[Hg] [facility] Body temperature 2023-09-08 08:32:00 36.06 Radha [facility] Body height 2023-09-04 00:58:00 157.5 cm [facility] Body weight 2023-09-04 00:58:00 80 kg [facility] BMI 2023-09-04 00:58:00 32.26 kg/m2 [facility] Heart rate 2023-06-16 17:00:00 108 /min [facility] Systolic blood pressure 2023-06-16 15:31:00 101 mm[Hg] [facility] Diastolic blood pressure 2023-06-16 15:31:00 81 mm[Hg] [facility] Body temperature 2023-06-16 15:31:00 36.61 Radha [facility] Respiratory rate 2023-06-16 15:31:00 18 /min [facility] Oxygen saturation in Arterial blood by Pulse oximetry 2023-06-16 15:31:00 94 /min [facility] Body weight 2023-06-16 05:26:00 86.047 kg [facility] BMI 2023-06-16 05:26:00 33.60 kg/m2 [facility] Body height 2023-06-13 04:00:00 160 cm [facility] Systolic blood pressure 2023-06-04 13:02:00 93 mm[Hg] [facility] Diastolic blood pressure 2023-06-04 13:02:00 57 mm[Hg] [facility] Heart rate 2023-06-04 13:02:00 101 /min [facility] Respiratory rate 2023-06-04 13:02:00 22 /min [facility] Oxygen saturation in Arterial blood by Pulse oximetry 2023-06-04 13:02:00 95 /min room air [facility] Body temperature 2023-06-04 11:46:00 35.28 Radha [facility] Systolic blood pressure 2023-05-28 16:00:00 154 mm[Hg] [facility] Diastolic blood pressure 2023-05-28 16:00:00 82 mm[Hg] [facility] Heart rate 2023-05-28 16:00:00 89 /min [facility] Body temperature 2023-05-28 16:00:00 36.67 Radha [facility] Respiratory rate 2023-05-28 16:00:00 16 /min [facility] Oxygen saturation in Arterial blood by Pulse oximetry 2023-05-28 16:00:00 97 /min [facility] Body height 2023-05-28 07:00:00 157.5 cm [facility] Body weight 2023-05-28 07:00:00 87.544 kg [facility] BMI 2023-05-28 07:00:00 35.30 kg/m2 [facility] Body height 2023-05-26 09:12:00 157.5 cm [facility] Body weight 2023-05-26 09:12:00 87.091 kg [facility] BMI 2023-05-26 09:12:00 35.12 kg/m2 [facility] Respiratory rate 2023-04-02 16:35:00 18 /min [facility] Oxygen saturation in Arterial blood by Pulse oximetry 2023-04-02 16:35:00 98 /min [facility] Systolic blood pressure 2023-04-02 12:00:00 147 mm[Hg] [facility] Diastolic blood pressure 2023-04-02 12:00:00 97 mm[Hg] [facility] Heart rate 2023-04-02 12:00:00 106 /min [facility] Body temperature 2023-04-02 12:00:00 36.28 Radha [facility] Body height 2023-03-30 02:14:00 157.5 cm [facility] Body weight 2023-03-30 02:14:00 92.08 kg [facility] BMI 2023-03-30 02:14:00 37.13 kg/m2 [facility] Respiratory rate 2022-08-03 14:40:00 18 /min [facility] Systolic blood pressure 2022-08-03 12:13:00 112 mm[Hg] [facility] Diastolic blood pressure 2022-08-03 12:13:00 77 mm[Hg] [facility] Heart rate 2022-08-03 12:13:00 115 /min [facility] Oxygen saturation in Arterial blood by Pulse oximetry 2022-08-03 12:13:00 93 /min [facility] Body temperature 2022-08-03 12:00:00 36.83 Radha [facility] Body height 2022-08-02 21:52:00 160.2 cm [facility] Body weight 2022-08-02 21:52:00 95 kg [facility] BMI 2022-08-02 21:52:00 37.02 kg/m2 [facility] BP Systolic 2022-07-24 13:31:00 136 [...] Date / Time Performed Performing Clinician Source CT brain wo IV contrast 2024-08-24 00:00:00 [facility] XR FEMUR 2+ VW RIGHT 2024-08-10 10:28:08 Dipak Colindres [facility] XR HIP 2-3 VIEWS RIGHT 2024-08-10 10:27:46 Dipak Colindres [facility] UA WITH CULTURE IF INDICATED 2024-08-10 09:51:00 Dipak Colindres [facility] VALPROIC ACID LEVEL 2024-08-10 08:31:00 Prakash Eckert [facility] XR CHEST 1 VIEW 2024-08-10 07:18:37 Dipak Colindres [facility] XR PELVIS 1-2 VIEWS 2024-08-10 07:18:15 Dipak Colindres [facility] CT BRAIN WO IV CONTRAST 2024-08-10 06:06:00 Dipak Colindres [facility] CT CERVICAL SPINE WO IV CONTRAST 2024-08-10 06:06:00 Dipak Colindres [facility] BASIC METABOLIC PANEL 2024-08-10 05:51:00 Dipak Colindres [facility] HEPATIC FUNCTION PANEL 2024-08-10 05:51:00 Dipak Colindres [facility] MAGNESIUM LEVEL 2024-08-10 05:51:00 Colindres Dipak Dixon [facility] PHOSPHORUS LEVEL 2024-08-10 05:51:00 Jens Dipak Dixon [facility] TYPE AND SCREEN 2024-08-10 05:51:00 Colindres, Dipak Dixon [facility] COMPLETE BLOOD COUNT W/DIFF AND PLATELET 2024-08-10 05:51:00 Jens Dipak Dixon [facility] THROMBOELASTOGRAPH RAPID 2024-08-10 05:51:00 Jens Dipak Dixon [facility] COMPLETE BLOOD COUNT 2024-08-10 05:51:00 Jens Dipak Dixon [facility] AUTOMATED DIFFERENTIAL 2024-08-10 05:51:00 Jens Dipak Dixon [facility] POC GLUCOSE UNSOLICITED RESULTS 2024-08-10 05:33:00 Brooklynn Paige [facility] ECG 12 lead (arrhythmia) 2024-08-10 00:00:00 [facility] Urine Culture 2024-08-10 00:00:00 [facility] LACTIC ACID WHOLE BLOOD 2024-04-03 01:59:00 Chrissy Mohr [facility] BASIC METABOLIC PANEL (NA, K , CL, CO2, GLUCOSE, BUN, CREATININE, CA) 2024-04-03 01:58:00 Tammy Chrissy [facility] CBC WITH DIFF 2024-04-03 01:58:00 [facility] N-TERMINAL PRO-BNP 2024-04-03 01:58:00 Tammy Chrissy [facility] EKG-12 LEAD 2024-01-13 04:42:14 Radha Wyatt [facility] TROPONIN I 2024-01-13 03:20:00 Radha Wyatt [facility] COMP. METABOLIC PANEL ([id number]) 2024-01-13 03:20:00 Radha Wyatt [facility] CBC WITH DIFF 2024-01-13 03:20:00 Radha Wyatt [facility] TRANSTHORACIC ECHO (TTE) LIMITED W/ DOPPLER, COLOR AND CONTRAST 2024-01-10 13:07:00 Darrick Altamirano [facility] MAGNESIUM 2024-01-10 09:16:00 Darrick Altamirano [facility] TROPONIN I 2024-01-10 09:16:00 Darrick Altamirano [facility] BASIC METABOLIC PANEL (NA, K , CL, CO2, GLUCOSE, BUN, CREATININE, CA) 2024-01-10 09:16:00 Darrick Altamirano [facility] LIPID PANEL ([id number])(TOTAL CHOLESTEROL, TRIGLYCERIDES, HDL) 2024-01-10 09:16:00 Darrick Altamirano [facility] CBC WITH DIFF 2024-01-10 09:16:00 Darrick Altamirano [facility] PROTHROMBIN TIME / INR 2024-01-10 09:16:00 Darrick Altamirano [facility] ACTIVATED PARTIAL THRMPLAS DAVID 2024-01-10 09:16:00 Darrick Altamirano [facility] N-TERMINAL PRO-BNP 2024-01-10 09:16:00 Darrick Altamirano [facility] PHOSPHORUS 2024-01-10 04:58:00 Darrick Altamirano [facility] BLOOD CULTURE SCREEN 2024-01-10 02:39:00 Alfonso Alvarado [facility] BLOOD CULTURE SCREEN 2024-01-10 02:20:00 Alfonso Alvarado [facility] LACTIC ACID WHOLE BLOOD 2024-01-10 01:52:00 Alfonso Alvarado [facility] CT CHEST PULMONARY ANGIOGRAM 2024-01-09 23:59:01 Olena Del Castillo [facility] XR CHEST 1 VW 2024-01-09 21:49:00 Abundio Bannerktalyn [facility] TROPONIN I 2024-01-09 21:39:00 Abundio zhang [facility] COMP. METABOLIC PANEL ([id number]) 2024-01-09 21:39:00 Olena Del Castillo [facility] CBC WITH DIFF 2024-01-09 21:39:00 Abundio Bannerkatlyn [facility] D-DIMER 2024-01-09 21:39:00 [facility] 2024-01-09 21:39:00 [facility] HB [facility] ROUTINE & RHYTHM STRIP 2024-01-09 21:13:02 [facility]SE (AUTOMATED) 2023-12-15 12:43[facility]-12-15 10:26:00 Reema [facility] TROPONIN I 2023-12-15 10:26:00 Reema [facility] BASIC METABOLIC PANEL (NA, K , CL, CO2, GLUCOSE, BUN, CREATININE, CA) 2023-12-15 10:26:00 Reema [facility] CBC WITH DIFF 2023-12-15 10:26:00 Daria [facility] N-TERMINAL PRO-BNP 2023-12-15 10:26:00 Reema [facility] TROPONIN I 2023-12-15 03:21:00 Reema [facility] FREE T4 2023-12-15 03:21:00 Reema [facility] DIGOXIN 2023-12-15 03:21:00 Daria [facility] POCT GLUCOSE (AUTOMATED) 2023-12-15 00:56:00 Reema [facility] TROPONIN I 2023-12-14 21:05:00 Singer [facility] THYROID STIMULATING HORMONE 2023-12-14 21:05:00 Reema [facility] FREE T3 2023-12-14 21:05:00 Reema [facility] XR CHEST 1 VW 2023-12-14 19:25:00 Singer [facility] TROPONIN I 2023-12-14 19:19:00 Singer [facility] COMP. METABOLIC PANEL ([id number]) 2023-12-14 19:19:00 Singer [facility] CBC WITH DIFF 2023-12-14 19:19:00 Singer [facility] D-DIMER 2023-12-14 19:19:00 Singer [facility] N-TERMINAL PRO-BNP 2023-12-14 19:19:00 Singer [facility] EKG-12 LEAD 2023-12-14 18:38:57 Tal Benavidez [facility] POCT GLUCOSE (AUTOMATED) 2023-12-03 21:23:00 Connor Donaldson [facility] BASIC METABOLIC PANEL (NA, K , CL, CO2, GLUCOSE, BUN, CREATININE, CA) 2023-12-03 17:58:00 Mukesh Tabor [facility] POCT GLUCOSE (AUTOMATED) 2023-12-03 16:51:00 Connor Donaldson [facility] POCT GLUCOSE (AUTOMATED) 2023-12-03 13:00:00 Connor Donaldson [facility] MAGNESIUM 2023-12-03 09:21:00 [facility] ([id number]) (ALB,T.PRO,BILI T,BU/BC,ALT,AST,ALK PHOS) 2023-12-03 09:21:00 Ginny Mariaelena [facility] BASIC METABOLIC PANEL (NA, K , CL, CO2, GLUCOSE, BUN, CREATININE, CA) 2023-12-03 09:21:00 Ginny Mariaelena [facility] AC PANEL 21 + LACTIC ACID 2023-12-03 01:45:00 Ginny [facility] MRSA / MSSA SCREEN BY PCRRED 2023-12-03 01:45:00 Ginny Mariaelena [facility] CT CHEST PULMONARY ANGIOGRAM 2023-12-02 19:32:14 Connor Donaldson [facility] XR CHEST 1 VW 2023-12-02 19:04:00 Connor Donaldson [facility] BLOOD CULTURE SCREEN 2023-12-02 18:53:00 Connor Donaldson [facility] TROPONIN I 2023-12-02 18:53:00 Connor Donaldson [facility] COMP. METABOLIC PANEL ([id number]) 2023-12-02 18:53:00 Connor Donaldson [facility] CBC WITH DIFF 2023-12-02 18:53:00 Connor Donaldson [facility] RAPID INFLUENZA A/B 2023-12-02 18:53:00 Connor Donaldson [facility] N-TERMINAL PRO-BNP 2023-12-02 18:53:00 Connor Donaldson [facility] COVID-19 (ID NOW RAPID TESTING) 2023-12-02 18:53:00 Connor Donaldson [facility] BLOOD CULTURE SCREEN 2023-12-02 18:49:00 Connor Donaldson [facility] AC ABG + LACTIC ACID 2023-12-02 18:26:00 Connor Donaldson [facility] HB ECG ROUTINE & RHYTHM STRIP 2023-12-02 18:06:10 Connor Donaldson [facility] POCT GLUCOSE (AUTOMATED) 2023-11-28 16:40:00 Cr Altamirano [facility] PHOSPHORUS 2023-11-28 09:22:00 Leander [facility] MAGNESIUM 2023-11-28 09:22:00 Leander [facility] COMP. METABOLIC PANEL ([id number]) 2023-11-28 09:22:00 Leander [facility] CBC WITH DIFF 2023-11-28 09:22:00 Leander [facility] N-TERMINAL PRO-BNP 2023-11-28 09:22:00 Torrey Baez [facility] POCT GLUCOSE (AUTOMATED) 2023-11-28 01:31:00 [facility] POCT GLUCOSE (AUTOMATED) 2023-11-27 21:45:00 [facility] POCT GLUCOSE (AUTOMATED) 2023-11-27 16:30:00 [facility] POCT GLUCOSE (AUTOMATED) 2023-11-27 12:39:00 Lorenzo Ventura [facility] LACTIC ACID WHOLE BLOOD 2023-11-27 06:35:00 Leander [facility] MAGNESIUM 2023-11-27 06:34:00 Leander, [facility] COMP. METABOLIC PANEL ([id number]) 2023-11-27 06:34:00 Leander [facility] URINE DRUG (IMMUNOASSAY) - COMPREHENSIVE DRUG SCREEN 2023-11-27 03:59:00 Leander, [facility] POCT GLUCOSE (AUTOMATED) 2023-11-27 02:25:00 Lorenzo Ventura [facility] CT HEAD WO CONTRAST 2023-11-26 21:56:31 Leander [facility] MAGNESIUM 2023-11-26 21:32:00 Leander, [facility] COMP. METABOLIC PANEL ([id number]) 2023-11-26 21:32:00 Leander [facility] POCT GLUCOSE (AUTOMATED) 2023-11-26 21:11:00 Lorenzo Ventura [facility] VALPROIC ACID, FREE 2023-11-26 18:07:00 Leander [facility] KEPPRA (LEVETIRACETAM) 2023-11-26 18:07:00 Tabor, [facility] LACTIC ACID WHOLE BLOOD 2023-11-26 18:07:00 Leander [facility] POCT GLUCOSE (AUTOMATED) 2023-11-26 17:05:00 Lorenzo Ventura [facility] MAGNESIUM 2023-11-26 13:28:00 Raghu [facility] VITAMIN B12, LEVEL 2023-11-26 13:28:00 Leander [facility] FOLATE 2023-11-26 13:28:00 Leander, [facility] COMP. METABOLIC PANEL ([id number]) 2023-11-26 13:28:00 Raghu [facility] CBC WITH DIFF 2023-11-26 13:28:00 Tabor [facility] LACTIC ACID WHOLE BLOOD 2023-11-26 09:52:00 Robinson Shin [facility] POCT GLUCOSE (AUTOMATED) 2023-11-26 02:13:00 Lorenzo Ventura [facility] LACTIC ACID WHOLE BLOOD 2023-11-26 00:53:00 Raghu [facility]ell[facility] ELECTROENCEPHALOGRAM 2023-11-26 00:00:00 Leander [facility] POCT GLUCOSE (AUTOMATED) 2023-11-25 20:59:00 Lorenzo Ventura [facility] LACTIC ACID WHOLE BLOOD 2023-11-25 20:56:00 Raghu [facility]ell[facility] MAGNESIUM 2023-11-25 20:55:00 Raghu [facility] COMP. METABOLIC PANEL ([id number]) 2023-11-25 20:55:00 Raghu [facility] POCT GLUCOSE (AUTOMATED) 2023-11-25 16:58:00 Lorenzo Ventura [facility] POCT GLUCOSE (AUTOMATED) 2023-11-25 13:04:00 Lorenzo Ventura [facility] LACTIC ACID WHOLE BLOOD 2023-11-25 09:25:00 Jessica [facility] MAGNESIUM 2023-11-25 09:24:00 Raghu [facility] COMP. METABOLIC PANEL ([id number]) 2023-11-25 09:24:00 Nestor Lopez [facility] CBC WITH DIFF 2023-11-25 09:24:00 Tabor [facility] MAGNESIUM 2023-11-25 04:52:00 Tabor [facility] COMP. METABOLIC PANEL ([id number]) 2023-11-25 04:52:00 Leander [facility] LACTIC ACID WHOLE BLOOD 2023-11-25 04:52:00 Leander [facility] POCT GLUCOSE (AUTOMATED) 2023-11-25 03:00:00 Lorenzo Ventura [facility] TROPONIN I 2023-11-25 02:59:00 Jessica [facility] COMP. METABOLIC PANEL ([id number]) 2023-11-25 02:59:00 Nestor Lopez [facility] HIV 1/2 AG-AB WITH REFLEX 2023-11-25 02:59[facility] 2023-11-24 22:24:00 Leander [facility] POCT GLUCOSE (AUTOMATED) 2023-11-24 21:21:00 Lorenzo Ventura [facility] MAGNESIUM 2023-11-24 21:08:00 Tabor, [facility] COMP. METABOLIC PANEL ([id number]) 2023-11-24 21:08:00 Tabor, [facility] LACTIC ACID WHOLE BLOOD 2023-11-24 21:08:00 Jessica [facility] POCT GLUCOSE (AUTOMATED) 2023-11-24 17:43:00 Lorenzo Ventura [facility] POCT GLUCOSE (AUTOMATED) 2023-11-24 17:43:00 Lorenzo Hemrosalie [facility] MAGNESIUM 2023-11-24 15:47:00 Tabor, [facility] COMP. METABOLIC PANEL ([id number]) 2023-11-24 15:47:00 Tabor [facility] ACTIVATED PARTIAL THRMPLAS DAVID 2023-11-24 15:47:00 Uli [facility] LACTIC ACID WHOLE BLOOD 2023-11-24 15:47:00 Tabor [facility] MAGNESIUM 2023-11-24 15:47:00 Tabor, [facility] COMP. METABOLIC PANEL ([id number]) 2023-11-24 15:47:00 Tabor [facility] ACTIVATED PARTIAL THRMPLAS DAVID 2023-11-24 15:47:00 Uli [facility] LACTIC ACID WHOLE BLOOD 2023-11-24 15:47:00 Tabor [facility] POCT GLUCOSE (AUTOMATED) 2023-11-24 12:33:00 Lorenzo Hemrosalie [facility] POCT GLUCOSE (AUTOMATED) 2023-11-24 12:33:00 Al Hemyari, [facility] MAGNESIUM 2023-11-24 10:03:00 Tabor, [facility] COMP. METABOLIC PANEL ([id number]) 2023-11-24 10:03:00 Tabor, [facility] CBC WITH DIFF 2023-11-24 10:03:00 Tabor, [facility] LACTIC ACID WITH 3 HOUR REFLEX 2023-11-24 10:03:00 Tabor, [facility] MAGNESIUM 2023-11-24 10:03:00 Tabor, [facility] COMP. METABOLIC PANEL ([id number]) 2023-11-24 10:03:00 Tabor, [facility] CBC WITH DIFF 2023-11-24 10:03:00 Tabor, [facility] LACTIC ACID WITH 3 HOUR REFLEX 2023-11-24 10:03:00 Tabor, [facility] ACTIVATED PARTIAL THRMPLAS DAVID 2023-11-24 06:13:00 Uli [facility] ACTIVATED PARTIAL THRMPLAS DAVID 2023-11-24 06:13:00 Uli [facility] POCT GLUCOSE (AUTOMATED) 2023-11-24 03:15:00 Lorenzo Ventura [facility] POCT GLUCOSE (AUTOMATED) 2023-11-24 03:15:00 Lorenzo Ventura [facility] ACTIVATED PARTIAL THRMPLAS DAVID 2023-11-23 23:09:00 Uli [facility] ACTIVATED PARTIAL THRMPLAS DAVID 2023-11-23 23:09:00 Uli [facility] POCT GLUCOSE (AUTOMATED) 2023-11-23 21:28:00 Lorenzo Ventura [facility] POCT GLUCOSE (AUTOMATED) 2023-11-23 21:28:00 Lorenzo Ventura [facility] CATH PROCEDURE LOG 2023-11-23 20:38:36 [facility] 2023-11-23 20:38:36 Senthil Altamiranowan [facility] CARDIAC CATHETERIZATION 2023-11-23 20:11:00 Altamirano, [facility] CARDIAC CATHETERIZATION 2023-11-23 20:11:00 Lisandra [facility] CARDIAC CATHETERIZATION 2023-11-23 20:11:00 Lisandra [facility] CARDIAC CATHETERIZATION 2023-11-23 20:11:00 Lisandra [facility] POCT GLUCOSE (AUTOMATED) 2023-11-23 17:18:00 Lorenzo Hemrosalie [facility] POCT GLUCOSE (AUTOMATED) 2023-11-23 17:18:00 Lorenzo Hemrosalie [facility] POCT GLUCOSE (AUTOMATED) 2023-11-23 16:50:00 Lorenzo [facility] PO[facility] GLUCOSE (AUTOMATED) 2023-11-23 16:50:00 Lorenzo [facility] ACTIVATED PARTIAL THRMPLAS DAVID 2023-11-23 15:13:00 Uli [facility] ACTIVATED PARTIAL THRMPLAS DAVID 2023-11-23 15:13:00 Uli [facility] LACTIC ACID WHOLE BLOOD 2023-11-23 15:12:00 Aleida [facility] LACTIC ACID WHOLE BLOOD 2023-11-23 15:12:00 Aleida [facility] POCT GLUCOSE (AUTOMATED) 2023-11-23 12:47:00 Lorenzo [facility] POCT GLUCOSE (AUTOMATED) 2023-11-23 12:47:00 Lorenzo [facility] MAGNESIUM 2023-11-23 07:52:00 Louise [facility] HEPATIC FUNCTION PANEL (48598) (ALB,T.PRO,BILI T,BU/BC,ALT,AST,ALK PHOS) 2023-11-23 07:52:00 Mukesh Tabor [facility] BASIC METABOLIC PANEL (NA, K , CL, CO2, GLUCOSE, BUN, CREATININE, CA) 2023-11-23 07:52:00 Louise [facility] CBC WITH DIFF 2023-11-23 07:52:00 Louise [facility] ACTIVATED PARTIAL THRMPLAS DAVID 2023-11-23 07:52:00 [facility] 2023-11-23 07:52:00 Robinson Shin [facility] MAGNESIUM 2023-11-23 07:52:00 Louise [facility] HEPATIC FUNCTION PANEL ([id number]) (ALB,T.PRO,BILI T,BU/BC,ALT,AST,ALK PHOS) 2023-11-23 07:52:00 Mukesh Tabor [facility] BASIC METABOLIC PANEL (NA, K , CL, CO2, GLUCOSE, BUN, CREATININE, CA) 2023-11-23 07:52:00 Louise [facility] CBC WITH DIFF 2023-11-23 07:52:00 Louise [facility] ACTIVATED PARTIAL THRMPLAS DAVID 2023-11-23 07:52:00 [facility]LO[facility] 2023-11-23 07:52:00 [facility] 2023-11-23 05:00:00 [facility] LACTIC [facility]ID WHOLE BLOOD 2023-11-23 05:00:00 Aleida [facility] LACTIC ACID WHOLE BLOOD 2023-11-23 03:12:00 [facility] LACTIC ACID WHOLE BLOOD 2023-11-23 03:12:00 [facility] LACTIC ACID WHOLE BLOOD 2023-11-23 00:57:00 [facility] LACTIC ACID WHOLE BLOOD 2023-11-23 00:57:00 [facility] PO[facility] GLUCOSE (AUTOMATED) 2023-11-23 00:56:00 Lorenzo [facility] POCT GLUCOSE (AUTOMATED) 2023-11-23 00:56:00 Lorenzo [facility] LACTIC ACID WHOLE BLOOD 2023-11-22 23:49:00 [facility] 2023-11-22 23:49:00 Robinson Shin [facility] POCT GLUCOSE (AUTOMATED) 2023-11-22 21:49:00 Lorenzo [facility] POCT GLUCOSE (AUTOMATED) 2023-11-22 21:49:00 Lorenzo [facility]ie [facility] LACTIC ACID WHOLE BLOOD 2023-11-22 21:41:00 Tabor [facility] LACTIC ACID WHOLE BLOOD 2023-11-22 21:41:00 Tabor [facility] POCT GLUCOSE (AUTOMATED) 2023-11-22 21:01:00 Lorenzo [facility]adian[facility] POCT GLUCOSE (AUTOMATED) 2023-11-22 21:01:00 Lorenzo [facility] ACTIVATED PARTIAL THRMPLAS DAVID 2023-11-22 19:46:00 Uli [facility] LACTIC ACID WHOLE BLOOD 2023-11-22 19:46:00 Leander [facility] ACTIVATED PARTIAL THRMPLAS DAVID 2023-11-22 19:46:00 Uli [facility] LACTIC ACID WHOLE BLOOD 2023-11-22 19:46:00 Leander [facility] LACTIC ACID WHOLE BLOOD 2023-11-22 17:22:00 Faby [facility] LACTIC ACID WHOLE BLOOD 2023-11-22 17:22:00 Faby [facility] POCT GLUCOSE (AUTOMATED) 2023-11-22 17:00:00 Madeline Pierre [facility] POCT GLUCOSE (AUTOMATED) 2023-11-22 17:00:00 Madeline Pierre [facility] LOWER EXTREMITY ARTERIAL DUPLEX BILATERAL - BY VASCULAR LAB 2023-11-22 16:43:47 Faby [facility] LOWER EXTREMITY ARTERIAL DUPLEX BILATERAL - BY VASCULAR LAB 2023-11-22 16:43:47 Faby [facility] TRANSTHORACIC ECHO (TTE) COMPLETE W/ CONTRAST 2023-11-22 15:50:00 Cris Mcnally [facility] TRANSTHORACIC ECHO (TTE) COMPLETE W/ CONTRAST 2023-11-22 15:50:00 [facility] ABDOMEN [facility] 2023-11-22 14:54:18 Faby [facility] US ABDOMEN LIMITED 2023-11-22 14:54:18 Faby [facility] HB ECG ROUTINE & RHYTHM STRIP 2023-11-22 14:28:42 Louise [facility] HB ECG ROUTINE & RHYTHM STRIP 2023-11-22 14:28:42 Louise [facility] COMP. METABOLIC PANEL ([id number]) 2023-11-22 14:26:00 Uli [facility] IRON PANEL 2023-11-22 14:26:00 Uli [facility] LACTIC ACID WHOLE BLOOD 2023-11-22 14:26:00 Faby [facility] COMP. METABOLIC PANEL ([id number]) 2023-11-22 14:26:00 Uli [facility] IRON PANEL 2023-11-22 14:26:00 Uli [facility] LACTIC ACID WHOLE BLOOD 2023-11-22 14:26:00 Faby [facility] POCT GLUCOSE (AUTOMATED) 2023-11-22 13:26:00 Ignacio [facility] POCT GLUCOSE (AUTOMATED) 2023-11-22 13:26:[address] [facility] [address] CHEST PULMONARY ANGIOGRAM 2023-11-22 13:10:36 Uli [facility] CT CHEST PULMONARY ANGIOGRAM 2023-11-22 13:10:36 Uli [facility] PHOSPHORUS 2023-11-22 11:45:00 Uli [facility] CREATINE KINASE 2023-11-22 11:45:00 Louise [facility] FERRITIN SERUM 2023-11-22 11:45:00 Uli [facility] TROPONIN I 2023-11-22 11:45:00 Uli [facility] LIPID PANEL ([id number])(TOTAL CHOLESTEROL, TRIGLYCERIDES, HDL) 2023-11-22 11:45:00 Uli [facility] CBC WITH DIFF 2023-11-22 11:45:00 Uli [facility] GLYCOSYLATED HEMOGLOBIN (A1C) 2023-11-22 11:45:00 Uli [facility] PHOSPHORUS 2023-11-22 11:45:00 Uli [facility] CREATINE KINASE 2023-11-22 11:45:00 Janeth Gil [facility] FERRITIN SERUM 2023-11-22 11:45:00 Uli [facility] TROPONIN I 2023-11-22 11:45:00 Uli [facility] LIPID PANEL ([id number])(TOTAL CHOLESTEROL, TRIGLYCERIDES, HDL) 2023-11-22 11:45:00 Uli [facility] CBC WITH DIFF 2023-11-22 11:45:00 Uli [facility] GLYCOSYLATED HEMOGLOBIN (A1C) 2023-11-22 11:45:00 Uli [facility] BLOOD CULTURE SCREEN 2023-11-22 09:37:00 Uli [facility] BLOOD CULTURE SCREEN 2023-11-22 09:37:00 Uli [facility] BLOOD CULTURE SCREEN 2023-11-22 09:36:00 Uli [facility] BLOOD CULTURE SCREEN 2023-11-22 09:36:00 Uli [facility] US LOWER EXTREMITY VEIN WITH COMPRESSION BILATERAL (ONLY FOR RULE OUT DVT) 2023-11-22 08:09:01 Uli [facility] US LOWER EXTREMITY VEIN WITH COMPRESSION BILATERAL (ONLY FOR RULE OUT DVT) 2023-11-22 08:09:01 Uli [facility] LACTIC ACID WHOLE BLOOD 2023-11-22 08:03:00 Uli [facility] LACTIC ACID WHOLE BLOOD 2023-11-22 08:03:00 Uli [facility] MAGNESIUM 2023-11-22 08:02:00 Uli [facility] TROPONIN I 2023-11-22 08:02:00 Uli, [facility] PROTHROMBIN TIME / INR 2023-11-22 08:02:00 Lui, [facility] D-DIMER 2023-11-22 08:02:00 Uli, [facility] ACTIVATED PARTIAL THRMPLAS DAVID 2023-11-22 08:02:00 Uli, [facility] PROCALCITONIN 2023-11-22 08:02:00 Uli, [facility] MAGNESIUM 2023-11-22 08:02:00 Uli, [facility] TROPONIN I 2023-11-22 08:02:00 Uli, [facility] PROTHROMBIN TIME / INR 2023-11-22 08:02:00 Uli, [facility] D-DIMER 2023-11-22 08:02:00 Uli, [facility] ACTIVATED PARTIAL THRMPLAS DAVID 2023-11-22 08:02:00 Uli, [facility] PROCALCITONIN 2023-11-22 08:02:00 Uli, [facility] XR SHOULDER 2+ VW RIGHT 2023-11-22 07:33:00 Uli, [facility] XR SHOULDER 2+ VW RIGHT 2023-11-22 07:33:00 Uli, [facility] URINALYSIS 2023-11-22 04:33:00 Megan Rondon [facility] URINE DRUG (IMMUNOASSAY) - COMPREHENSIVE DRUG SCREEN W/O REFLEX 2023-11-22 04:33:00 Alcon [facility] URINALYSIS 2023-11-22 04:33:00 Megan Rondon [facility] URINE DRUG (IMMUNOASSAY) - COMPREHENSIVE DRUG SCREEN W/O REFLEX 2023-11-22 04:33:00 Alcon [facility] PROTHROMBIN TIME / INR 2023-11-22 04:25:00 Alcon [facility] ACTIVATED PARTIAL THRMPLAS DAVID 2023-11-22 04:25:00 Megan Rondon [facility] PROTHROMBIN TIME / INR 2023-11-22 04:25:00 Megan Rondon [facility] ACTIVATED PARTIAL THRMPLAS DAVID 2023-11-22 04:25:00 Megan Rondon [facility] CRITICAL CARE 2023-11-22 04:18:14 Megan Rondon [facility] CRITICAL CARE 2023-11-22 04:18:14 Megan Rondon [facility] FREE T4 2023-11-22 02:57:00 Megan Rondon [facility] THYROID STIMULATING HORMONE 2023-11-22 02:57:00 Megan Rondon [facility] RAPID INFLUENZA A/B 2023-11-22 02:57:00 Megan Rondon [facility] COVID-19 (ID NOW RAPID TESTING) 2023-11-22 02:57:00 Megan Rondon [facility] LAB ONLY COVID INTERPRETATION 2023-11-22 02:57:00 Megan Rondon [facility] FREE T4 2023-11-22 02:57:00 Megan Rondon [facility] THYROID STIMULATING HORMONE 2023-11-22 02:57:00 Megan Rondon [facility] RAPID INFLUENZA A/B 2023-11-22 02:57:00 Megan Rondon [facility] COVID-19 (ID NOW RAPID TESTING) 2023-11-22 02:57:00 Megan Rondon [facility] LAB ONLY COVID INTERPRETATION 2023-11-22 02:57:00 Megan Rondon [facility] AMYLASE 2023-11-22 02:52:00 Megan Rondon [facility] LIPASE 2023-11-22 02:52:00 Megan Rondon [facility] TROPONIN I 2023-11-22 02:52:00 Megan Rondon [facility] COMP. METABOLIC PANEL ([id number]) 2023-11-22 02:52:00 Megan Rondon [facility] CBC WITH DIFF 2023-11-22 02:52:00 Megan Rondon [facility] N-TERMINAL PRO-BNP 2023-11-22 02:52:00 Megan Rondon [facility] AMYLASE 2023-11-22 02:52:00 Megan Rondon [facility] LIPASE 2023-11-22 02:52[facility]23-11-22 02:52[facility]00 [facility] COMP. METABOLIC PANEL ([id number]) 2023-11-22 02:52:00 Megan Rondon [facility] CBC WITH DIFF 2023-11-22 02:52:00 [facility] N-TERMINAL PRO-BNP 2023-11-22 02:52:00 [facility]ST 1 VW 2023-11-22 02:34:13 [facility]ST 1 VW 2023-11-22 02:34:13 [facility] HB [facility] ROUTINE & RHYTHM STRIP 2023-11-22 02:16:24 Alcon [facility] POCT-GLUCOSE METER 2023-09-08 08:40:00 [facility] CBC W/PLT COUNT & AUTO DIFFERENTIAL 2023-09-08 04:16[facility]00 [facility] 2023-09-08 04:16:00 [facility] MAGN[facility]UM 2023-09-08 04:16:00 [facility] PHOSPHORUS 2023-09-08 04:16:00 [facility] CBC W/PLT COUNT & AUTO DIFFERENTIAL 2023-09-08 04:16:00 [facility] POCT-GLUCOSE METER 2023-09-07 21:29:00 [facility] XR KNEE 3 VIEWS LEFT 2023-09-07 19:21:02 [facility] VEN[facility] DOPPLER LEGS BILATERAL 2023-09-07 12:45:00 [facility] CBC W/PLT COUNT & AUTO DIFFERENTIAL 2023-09-07 03:17:00 [facility] BASIC METABOLIC PANEL 2023-09-07 03:17:00 [facility] MAGNESIUM 2023-09-07 03:17:00 [facility] PHOSPHORUS 2023-09-07 03:17:00 [facility] CBC W/PLT COUNT & AUTO DIFFERENTIAL 2023-09-07 03:17:00 [facility] POCT-GLUCOSE METER 2023-09-06 21:17:00 [facility] POCT-GLUCOSE METER 2023-09-06 18:37:00 [facility] POCT-GLUCOSE METER 2023-09-06 13:16:00 [facility] POCT-GLUCOSE METER 2023-09-06 08:21:00 [facility] CBC W/PLT COUNT & AUTO DIFFERENTIAL 2023-09-06 04:49:00 Joshua [facility] BASIC METABOLIC PANEL 2023-09-06 04:49:00 Joshua [facility] MAGNESIUM 2023-09-06 04:49:00 Joshua [facility] PHOSPHORUS 2023-09-06 04:49:00 [facility] CBC W/PLT COUNT & AUTO DIFFERENTIAL 2023-09-06 04:49:00 [facility] POCT-GLUCOSE METER 2023-09-05 21:24:00 [facility] MR BRAIN WITH & WITHOUT IV CONTRAST 2023-09-05 11:25:07 Sandi Aleman [facility] POCT-GLUCOSE METER 2023-09-05 08:10:00 [facility] CBC W/PLT COUNT & AUTO DIFFERENTIAL 2023-09-05 04:44:00 [facility] BASIC METABOLIC PANEL 2023-09-05 04:44:00 [facility] MAGNESIUM 2023-09-05 04:44:00 Joshua [facility] PHOSPHORUS 2023-09-05 04:44:00 [facility] POCT-GLUCOSE METER 2023-09-05 04:44:00 Lisandra [facility] CBC W/PLT COUNT & AUTO DIFFERENTIAL 2023-09-05 04:44:00 Joshua [facility] POCT-GLUCOSE METER 2023-09-04 21:38:00 Altamirano, [facility] POCT-GLUCOSE METER 2023-09-04 15:42:00 Lisandra [facility] SARS-COV2/INFLUENZA/RSV RT-PCR 2023-09-04 11:25:00 Uli [facility] POCT-GLUCOSE METER 2023-09-04 10:53:00 Sabas [facility] POCT-GLUCOSE METER 2023-09-04 08:04:00 Sabas [facility] PROCALCITONIN 2023-09-04 06:56:00 Uli [facility] IRON, TIBC, % SAT. (WITHOUT FERRITIN) 2023-09-04 06:56:00 Uli [facility] FERRITIN 2023-09-04 06:56:00 Uli [facility] BLOOD CULTURE 2023-09-04 06:37:00 Randall, [facility] MR LUMBAR SPINE WITHOUT IV CONTRAST 2023-09-04 05:47:25 Postsantana [facility] MR THORACIC SPINE WITHOUT IV CONTRAST 2023-09-04 04:53:00 Melvi [facility] MR CERVICAL SPINE WITHOUT IV CONTRAST 2023-09-04 04:18:00 Melvi [facility] CT THORACIC SPINE WITHOUT IV CONTRAST 2023-09-04 03:08:00 Randall [facility] CT LUMBAR SPINE WITHOUT IV CONTRAST 2023-09-04 03:08:00 Randall [facility] LACTIC ACID, VENOUS 2023-09-04 01:42:00 [place] [facility] TYPE AND SCREEN, AUTOMATED 2023-09-04 01:42:00 Monroe [facility] CBC W/PLT COUNT & AUTO DIFFERENTIAL 2023-09-04 00:51:00 Melvi [facility] COMPREHENSIVE METABOLIC PANEL 2023-09-04 00:51:00 Melvi [facility] MAGNESIUM 2023-09-04 00:51:00 Melvi [facility] PHOSPHORUS 2023-09-04 00:51:00 Melvi [facility] PROTHROMBIN TIME/INR 2023-09-04 00:51:00 Melvi [facility] APTT 2023-09-04 00:51:00 Melvi [facility] B-TYPE NATRIURETIC FACTOR (BNP) 2023-09-04 00:51:00 Melvi [facility] URINALYSIS WITHOUT MICROSCOPIC 2023-09-04 00:51:00 Melvi [facility] RAPID DRUG SCREEN, URINE 2023-09-04 00:51:00 Melvi [facility] D-DIMER 2023-09-04 00:51:00 London Loyola [facility] FIBRINOGEN 2023-09-04 00:51:00 Jorge Pereira [facility] CBC W/PLT COUNT & AUTO DIFFERENTIAL 2023-09-04 00:51:00 Melvi [facility] EKG-SCANNED 2023-09-04 00:00:00 Provider, Default Scanning [facility] LACTIC ACID WHOLE BLOOD 2023-08-12 20:31:00 Mj Bryan [facility] COMP. METABOLIC PANEL ([id number]) 2023-08-12 20:29:00 Mj Bryan [facility] CBC WITH DIFF 2023-08-12 20:29:00 Mj Bryan [facility] CONSENT/REFUSAL FOR DIAGNOSI S AND TREATMENT 2023-08-12 19:43:16 Doctor Unassigned, [place] [facility] TRANSESOPHAGEAL ECHO 2023-06-16 11:05:00 Aydee Go [facility] T SPOT TB 2023-06-15 04:51:00 Lauren Blair [facility] FUNGITELL R B-D-GLUCAN WITH REFLEX TO TITER 2023-06-15 04:51:00 Lauren Blair [facility] ASPERGILLUS GALACTOMANNAN ANTIGEN 2023-06-15 04:51:00 Filiberto Blairmd Raul [facility] VANCOMYCIN LEVEL, TROUGH 2023-06-15 04:51:00 Kaylene Mendosa [facility] T-SPOT(R).TB (QUEST) 2023-06-15 04:27:00 Provider, Not In System [facility] T-SPOT(R).TB (QUEST) 2023-06-15 04:27:00 System, Provider Not In [facility] ECHO W CONTRAST & DOPPLER 2023-06-14 09:22:00 [facility] HEMOGLOBIN A1C 2023-06-14 04:08:00 Marianela Burgess [facility] CBC (HEMOGRAM ONLY) 2023-06-14 04:08:00 [facility] BASIC METABOLIC PANEL 2023-06-14 04:08:00 [facility] CRYPTOCOCCAL ANTIGEN 2023-06-13 17:21:00 Rossy deisymd Raul [facility] HC LAB HIV-1 AG W/HIV-1&2 AB 2023-06-13 17:21:00 Rossy [facility] VENOUS DOPPLER ARM, LEFT 2023-06-13 17:20:00 Marianela Burgess [facility] LEGIONELLA ANTIGEN, URINE 2023-06-13 17:00:00 [facility] SPUTUM CULTURE + GRAM STAIN 2023-06-13 14:33:00 [facility] MR LUMBAR SPINE WITH & WITHOUT IV CONTRAST 2023-06-13 13:03:47 Burt Nelson [facility] ECG 12-LEAD 2023-06-13 11:47:02 [facility] ECG 12-LEAD 2023-06-13 11:47:02 Unknown, Hl7 Doctor [facility] MRSA SCREEN 2023-06-13 09:19:00 [facility] CBC W/PLT COUNT & AUTO DIFFERENTIAL 2023-06-13 06:03:00 Marianela Burgess [facility] COMPREHENSIVE METABOLIC PANEL 2023-06-13 06:03:00 Marianela Burgess [facility] PROTHROMBIN TIME/INR 2023-06-13 06:03:00 [facility] CREATINE KINASE (CK) 2023-06-13 06:03:00 Aydee Go [facility] CBC W/PLT COUNT & AUTO DIFFERENTIAL 2023-06-13 06:03:00 [facility] BLOOD CULTURE 2023-06-13 06:02:00 Marianela Burgess [facility] CBC W/PLT COUNT & AUTO DIFFERENTIAL 2023-06-02 04:41:00 Kimberley [facility] BASIC METABOLIC PANEL 2023-06-02 04:41:00 Kimberley [facility] MAGNESIUM 2023-06-02 04:41:00 Kimberley [facility] PHOSPHORUS 2023-06-02 04:41:00 Kimberley [facility] CBC W/PLT COUNT & AUTO DIFFERENTIAL 2023-06-02 04:41:00 Kimberley [facility] XR SPINE LUMBAR 1 VIEW 2023-06-01 10:31:00 [facility] XR SPINE LUMBAR 1 VIEW 2023-06-01 09:46:00 Lajas [facility] LAMINECTOMY, SPINE, LUMBAR 2023-06-01 09:10:00 Lajas [facility] PROCEDURE W/ C-ARM 2023-06-01 09:10:00 Lajas [facility] LAMINECTOMY, SPINE, LUMBAR 2023-06-01 07:30:00 Lajas [facility] PROCEDURE W/ C-ARM 2023-06-01 07:30:00 Lajas [facility] SCREEN, URINE 2023-06-01 04:33:00 Lajas [facility] BASIC METABOLIC PANEL 2023-05-31 22:55:00 Patricia Dallas Stewart [facility] CBC W/PLT COUNT & AUTO DIFFERENTIAL 2023-05-31 22:55:00 Patricia Dallas Stewart [facility] PT/APTT 2023-05-31 22:55:00 Patricia Dallas Stewart [facility] CBC W/PLT COUNT & AUTO DIFFERENTIAL 2023-05-31 22:55:00 Gomez, Dallas Stewart [facility] CT NECK SOFT TISSUE WITHOUT IV CONTRAST 2023-05-31 09:39:30 [facility] TYPE AND SCREEN, AUTOMATED 2023-05-31 09:13:00 [facility] BASIC METABOLIC PANEL 2023-05-29 06:43:00 [facility] CBC W/PLT COUNT & AUTO DIFFERENTIAL 2023-05-29 06:43:00 [facility] CBC W/PLT COUNT & AUTO DIFFERENTIAL 2023-05-29 06:43:00 [facility] XR SPINE CERVICAL 2 OR 3 VIEWS 2023-05-28 18:57:00 [facility] FL FLUORO NON-SPECIFIC UP TO 1 HOUR 2023-05-28 10:48:00 [facility] [place] FLUORO NON-SPECIFIC UP TO 1 HOUR 2023-05-28 10:07:00 Jose [facility] DISCECTOMY, SPINE, CERVICAL, ANTERIOR APPROACH, WITH FUSION 2023-05-28 08:15:00 Lajas [facility] INSERTION, HARDWARE, SPINAL 2023-05-28 08:15:00 Lajas [facility] PROCEDURE, ALLOGRAFT, FOR SPINE SURGERY 2023-05-28 08:15:00 Lajas [facility] AUTOGRAFT FOR SPINE SURGERY 2023-05-28 08:15:00 Jose Adam Adi [facility] PROCEDURE W/ C-ARM 2023-05-28 08:15:00 Jose Adam [facility] NEUROPHYSIOLOGIC MONITORING, INTRAOPERATIVE 2023-05-28 08:15:00 Adam Garcia [facility] PROCEDURE, USING OPERATING MICROSCOPE 2023-05-28 08:15:00 Jose [facility] HCG, QUANTITATIVE, 2023-05-28 07:42:00 Yue Bui [facility] TYPE AND SCREEN, AUTOMATED 2023-05-28 07:42:00 Quin Scruggs [facility] XR CHEST 1 VIEW PORTABLE / BEDSIDE 2023-04-01 15:32:16 Thomas Lozoya [facility] B-TYPE NATRIURETIC FACTOR (BNP) 2023-04-01 13:32:00 [facility] ECHO W CONTRAST & DOPPLER 2023-03-31 20:18:37 Jasen [facility] MR CERVICAL SPINE WITHOUT IV CONTRAST 2023-03-31 09:25:00 Edward Lewis [facility] CBC (HEMOGRAM ONLY) 2023-03-31 03:45:00 [facility] COMPREHENSIVE METABOLIC PANEL 2023-03-31 03:45:00 [facility] ARTERIAL DOPPLER LEGS BILATERAL 2023-03-30 15:45:00 [facility] ([facility]HA[facility] W/ DOPPLER) ONLY 2023-03-30 15:44:00 Jasen [facility] ECG 12-LEAD 2023-03-30 13:06:22 Jasen [facility] ECG 12-LEAD 2023-03-30 13:06:22 Unknown, Hl7 [facility] MR THORACIC SPINE WITHOUT IV CONTRAST 2023-03-30 12:29:58 Eric [facility] MR LUMBAR SPINE WITHOUT IV CONTRAST 2023-03-30 11:58:00 Gloria Reyes [facility] EEG AWAKE AND DROWSY 2023-03-30 09:57:53 Liudmila Smart [facility] VALPROIC ACID LEVEL, TOTAL 2023-03-30 09:06:00 Liudmila Smart [facility] URINALYSIS W/ REFLEX URINE CULTURE 2023-03-30 03:54:00 Parveen Reyesnancychristoph [facility] CBC (HEMOGRAM ONLY) 2023-03-30 03:52:00 Jasen [facility] COMPREHENSIVE METABOLIC PANEL 2023-03-30 03:52:00 Jasen [facility] HEMOGLOBIN A1C 2023-03-30 03:52:00 Jasen [facility] PT/APTT 2023-03-30 03:52:00 Thomas Lozoya [facility] EKG-SCANNED 2023-03-29 00:00:00 Provider, Default Scanning [facility] CT HEAD WO CONTRAST 2022-12-11 18:36:49 Alfonso Alvarado [facility] URINE DRUG (IMMUNOASSAY) - COMPREHENSIVE DRUG SCREEN 2022-12-11 17:13:00 Alfonso Alvarado [facility] URINALYSIS 2022-12-11 17:13:00 Alfonso Alvarado [facility] CT CHEST PULMONARY ANGIOGRAM 2022-12-11 16:26:39 Alfonso Alvarado [facility] MAGNESIUM 2022-12-11 14:57:00 Alfonso Alvarado [facility] COMP. METABOLIC PANEL (63398) 2022-12-11 14:57:00 Alfonso Alvarado [facility] D-DIMER 2022-12-11 14:15:00 Alfonso Alvarado [facility] XR CHEST 1 VW 2022-12-11 14:10:26 Alfonso Alvarado [facility] TROPONIN I 2022-12-11 14:02:00 Alfonso Alvarado [facility] CBC WITH DIFF 2022-12-11 14:02:00 Alfonso Alvarado [facility] N-TERMINAL PRO-BNP 2022-12-11 14:02:00 Alfonso Alvarado [facility] HB ECG ROUTINE & RHYTHM STRIP 2022-12-11 14:01:08 Alfonso Alvarado [facility] CONSENT/REFUSAL FOR DIAGNOSI S AND TREATMENT 2022-12-11 13:52:01 Doctor Unassigned, [place] [facility] ECG 12-LEAD 2022-08-03 05:03:32 Unknown, Hl7 Doctor [facility] ECG 12-LEAD 2022-08-03 05:03:32 Unknown, Hl7 [facility] LIPID PANEL 2022-08-02 21:14:00 [facility] TSH/FREE T4 IF INDICATED 2022-08-02 21:14:00 [facility] VITAMIN B12 2022-08-02 21:14:00 [facility] HEMOGLOBIN A1C 2022-08-02 21:14:00 [facility] COMPREHENSIVE METABOLIC PANEL 2022-08-02 21:14:00 [facility] CBC W/PLT COUNT & AUTO DIFFERENTIAL 2022-08-02 21:14:00 [facility] RPR 2022-08-02 21:14:00 [facility] HC LAB HIV-1 AG W/HIV-1&2 AB 2022-08-02 21:14:00 [facility] C-REACTIVE PROTEIN 2022-08-02 21:14:00 [facility] CBC W/PLT COUNT & AUTO DIFFERENTIAL 2022-08-02 21:14:00 [facility] EKG-SCANNED 2022-08-02 00:00:00 Provider, Default Scanning [facility] CT HEAD WO CONTRAST 2022-08-01 23:52:15 Dami Lowry [facility] GALV ONLY - INFLUENZA A B RS V PCR 2022-08-01 18:28:00 Letitia Chambers [facility] TRANSTHORACIC ECHO (TTE) COMPLETE W/ CONTRAST 2022-08-01 14:42:00 Kylee Montez [facility] MAGNESIUM 2022-08-01 10:42:00 Dami Lowry [facility] BASIC METABOLIC PANEL (NA, K , CL, CO2, GLUCOSE, BUN, CREATININE, CA) 2022-08-01 10:42:00 Dami Lowry [facility] CBC WITH DIFF 2022-08-01 10:42:00 Essence [facility] N-TERMINAL PRO-BNP 2022-08-01 10:42:00 Kylee Montez [facility] POCT GLUCOSE (AUTOMATED) 2022-08-01 06:56:00 Dami Lowry [facility] CRITICAL CARE 2022-07-31 22:31:36 Alcon [facility] URINALYSIS 2022-07-31 20:52:00 Alcon [facility] URINE DRUG (IMMUNOASSAY) - COMPREHENSIVE DRUG SCREEN W/O REFLEX 2022-07-31 20:52:00 Alcon [facility] XR CHEST 1 VW 2022-07-31 18:45[facility]22-07-31 17:58:00 Alcon [facility] TROPONIN I 2022-07-31 17:58:00 Alcon [facility] COMP. METABOLIC PANEL (97096) 2022-07-31 17:58:00 Alcon [facility] CBC WITH DIFF 2022-07-31 17:58:00 Alcon [facility] PROTHROMBIN TIME / INR 2022-07-31 17:58:00 Alcon [facility] ACTIVATED PARTIAL THRMPLAS DAVID 2022-07-31 17:58:00 Alcon [facility] N-TERMINAL PRO-BNP 2022-07-31 17:58:00 Alcon [facility] HB ECG ROUTINE & RHYTHM STRIP 2022-07-31 17:46[facility] NOTICE OF PRIVACY PRACTICES 2022-07-31 17:35:38 Doctor Unassigned, [place] [facility] CONSENT/REFUSAL FOR DIAGNOSI S AND TREATMENT 2022-07-31 17:35:13 Doctor Unassigned, [place] [facility] PHOSPHORUS 2022-05-08 05:51:00 Azeem Meehan [facility] MAGNESIUM 2022-05-08 05:51:00 Shefali Azeem [facility] BASIC METABOLIC PANEL (NA, K , CL, CO2, GLUCOSE, BUN, CREATININE, CA) 2022-05-08 05:51:00 Shefali [facility] CBC WITH DIFF 2022-05-08 05:51:00 Shefali [facility] BASIC METABOLIC PANEL (NA, K , CL, CO2, GLUCOSE, BUN, CREATININE, CA) 2022-05-07 07:09:00 John Cintron [facility] CBC WITH DIFF 2022-05-07 07:09:00 John Cintron [facility] POCT GLUCOSE (AUTOMATED) 2022-05-07 01:16:00 Brandyn Ibrahim [facility] HB ABO GROUPING 2022-05-06 05:07:00 Ismael Dunn [facility] BASIC METABOLIC PANEL (NA, K , CL, CO2, GLUCOSE, BUN, CREATININE, CA) 2022-05-06 05:04:00 Shefali [facility] CBC WITH DIFF 2022-05-06 05:04:00 Shefali [facility] KEPPRA (LEVETIRACETAM) 2022-05-06 05:04:00 Shefali [facility] MR LUMBAR SPINE WO CONTRAST 2022-05-06 02:54:37 Ender Monet [facility] ELECTROENCEPHALOGRAM 2022-05-06 00:00:00 John Cintron [facility] BASIC METABOLIC PANEL (NA, K , CL, CO2, GLUCOSE, BUN, CREATININE, CA) 2022-05-05 07:57:00 Ismael Dunn [facility] CBC WITH DIFF 2022-05-05 07:57:00 Ismael Dunn [facility] PROTHROMBIN TIME / INR 2022-05-05 07:57:00 Ismael Dunn [facility] ACTIVATED PARTIAL THRMPLAS DAVID 2022-05-05 07:57:00 [place] FIBRINOGEN 2022-05-05 07:57:00 Ismael Dunn [facility] EMERGENCY SERVICES AGREEMENT S AND AUTHORIZATIONS 2022-05-04 05:01:00 Doctor Unassigned, [place] [facility] VITAMIN D, 25-OH 2022-04-15 16:53:00 Sen [place] [facility] MR THORACIC SPINE WO CONTRAST 2022-04-15 11:56:19 Harshil [facility] MR CERVICAL SPINE WO CONTRAST 2022-04-15 11:20:00 Harshil [facility] BASIC METABOLIC PANEL (NA, K , CL, CO2, GLUCOSE, BUN, CREATININE, CA) 2022-04-15 10:36:00 Charmaine Morataya [facility] TEST, URINE 2022-04-15 04:39:00 Harshil [facility] URINE DRUG (IMMUNOASSAY) - COMPREHENSIVE DRUG SCREEN 2022-04-15 04:39:00 Harshil [facility] URINALYSIS 2022-04-15 04:39:00 Harshil [facility] TRANSTHORACIC ECHO (TTE) COMPLETE W/ CONTRAST 2022-04-14 16:37:03 Harshil [facility] KEPPRA (LEVETIRACETAM) 2022-04-14 15:30:00 Harshil [facility] MAGNESIUM 2022-04-14 10:03:00 Harshil [facility] BASIC METABOLIC PANEL (NA, K , CL, CO2, GLUCOSE, BUN, CREATININE, CA) 2022-04-14 10:03:00 Harshil [facility] MR LUMBAR SPINE WO CONTRAST 2022-04-14 02:48:12 Harshil [facility] MR STROKE BRAIN WO CONTRAST 2022-04-14 02:29:[address] [facility] CT STROKE ANGIOGRAM HEAD 2022-04-13 18:40:00 Sapna Vargas [facility] CT STROKE ANGIOGRAM NECK 2022-04-13 18:40:00 Sapna Vargas [facility] CT STROKE HEAD WO CONTRAST 2022-04-13 18:36:00 Sapna Vargas [facility] TROPONIN I 2022-04-13 18:17:00 Sapna Vargas [facility] THYROID STIMULATING HORMONE 2022-04-13 18:17:00 Harshil [facility] BASIC METABOLIC PANEL (NA, K , CL, CO2, GLUCOSE, BUN, CREATININE, CA) 2022-04-13 18:17:00 Sapna Vargas [facility] LIPID PANEL (92120)(TOTAL CHOLESTEROL, TRIGLYCERIDES, HDL) 2022-04-13 18:17:00 Harshil [facility] CBC WITHOUT DIFF 2022-04-13 18:17:00 Sapna Vargas [facility] GLYCOSYLATED HEMOGLOBIN (A1C) 2022-04-13 18:17:00 Harshil [facility] PROTHROMBIN TIME / INR 2022-04-13 18:17:00 Sapna Vargas [facility] ACTIVATED PARTIAL THRMPLAS DAVID 2022-04-13 18:17:00 Sapna Vargas [facility] COVID-19 (ID NOW RAPID TESTING) 2022-04-13 18:17:00 Sapna Vargas [facility] LAB ONLY COVID INTERPRETATION 2022-04-13 18:17:00 Sapna Vargas [facility] HB ECG ROUTINE & RHYTHM STRIP 2022-04-13 18:15:49 Sapna Vargas [facility] CONSENT/REFUSAL FOR DIAGNOSI S AND TREATMENT 2022-04-13 18:05:14 Doctor Unassigned, [place] [facility] HOSPITAL ADMISSION 2022-04-13 05:01:00 Doctor Unassigned, [place] [facility] SARS-COV-2 COVID-19 VACCINE 12 YRS+,0.3ML,IM (PFIZER - ROSE TOP) 2022-02-19 15:21:12 Doctor Unassigned, [place] [facility] URINE DRUG (IMMUNOASSAY) - COMPREHENSIVE DRUG SCREEN W/O REFLEX 2021-11-23 21:21:00 Williams Virk [facility] CT HEAD WO CONTRAST 2021-11-23 20:58:00 Williams Virk [facility] POCT TEST 2021-11-23 20:46:00 AjWilliams simmons [facility] URINALYSIS 2021-11-23 20:43:00 AjWilliams simmons [facility] LIPASE 2021-11-23 20:27:00 Segundo Virk Angelia [facility] TROPONIN I 2021-11-23 20:27[facility]. METABOLIC PANEL ([id number]) 2021-11-23 20:27:00 Williams Virk [facility] CBC WITH DIFF 2021-11-23 20:27:00 Ajtroy [facility] POCT GLUCOSE (AUTOMATED) 2021-11-23 20:15:00 Doctor Unassigned, [place] [facility] SARS-COV-2 COVID-19 VACCINE,0.3ML,IM (PFIZER) 2021-05-24 14:23:12 Doctor Unassigned, [place] [facility] SARS-COV-2 COVID-19 VACCINE,0.3ML,IM (PFIZER) 2021-05-03 14:59:29 Doctor Unassigned, [place] [facility] EMERGENCY SERVICES AGREEMENT S AND AUTHORIZATIONS 2021-04-16 05:01:00 Doctor Unassigned, [place] [facility] URINALYSIS 2021-03-17 03:09:00 Fabrice Chakraborty [facility] XR CHEST 1 VW 2021-03-17 01:45:07 [facility] TROPONIN I 2021-03-17 01:35:00 [facility] COMP. METABOLIC PANEL ([id number]) 2021-03-17 01:35:00 [facility] CBC WITH DIFF 2021-03-17 01:35:00 [facility] N-TERMINAL PRO-BNP 2021-03-17 01:35:00 [facility] COVID-19 (ID NOW RAPID TESTING) 2021-03-17 00:58:00 Mj Bryan [facility] CONSENT/REFUSAL FOR DIAGNOSI S AND TREATMENT 2021-03-17 00:32:59 Doctor Unassigned, [place] [facility] COVID-19 (ID NOW RAPID TESTING) 2021-02-19 17:04:00 Estefania Monroy [facility] CT ABDOMEN PELVIS W CONTRAST 2021-02-19 16:41:18 Estefania Monroy [facility] LIPASE 2021-02-19 15:58:00 Estefania Monroy [facility] COMP. METABOLIC PANEL ([id number]) 2021-02-19 15:58:00 Estefania Monroy [facility] CBC WITH DIFF 2021-02-19 15:58:00 Estefania Monroy [facility] URINALYSIS 2021-02-19 15:58:00 Estefania Monroy [facility] NOTICE OF PRIVACY PRACTICES 2021-02-19 15:30:46 Doctor Unassigned, [place] [facility] CONSENT/REFUSAL FOR DIAGNOSI S AND TREATMENT 2021-02-19 15:30:30 Doctor Unassigned, [place] [facility] Plan of Care Planned Activity Planned Date Details Comments Source Future Scheduled Test 2025-08-02 00:00:00 Lipid panel (procedure) [code = 75007765] [facility] Future Scheduled Test 2025-08-02 00:00:00 Lipid panel (procedure) [code = 26011316] [facility] Future Scheduled Test 2025-08-02 00:00:00 Lipid panel (procedure) [code = 12100137] [facility] Future Scheduled Test 2025-08-02 00:00:00 Lipid panel (procedure) [code = 47634423] [facility] Future Scheduled Test 2025-08-02 00:00:00 Lipid panel (procedure) [code = 67505453] [facility] Future Scheduled Test 2025-08-02 00:00:00 Lipid panel (procedure) [code = 46154525] [facility] Future Scheduled Test 2025-08-02 00:00:00 Lipid panel (procedure) [code = 29386822] [facility] Future Scheduled Test 2025-08-02 00:00:00 Lipid panel (procedure) [code = 49314903] [facility] Future Scheduled Test 2025-08-02 00:00:00 Lipid panel (procedure) [code = 45652524] [facility] Future Scheduled Test 2025-08-02 00:00:00 Lipid panel (procedure) [code = 65407833] [facility] Future Scheduled Test 2025-08-02 00:00:00 Lipid panel (procedure) [code = 26924596] [facility] Future Scheduled Test 2025-08-02 00:00:00 Lipid panel (procedure) [code = 21891611] [facility] Future Scheduled Test 2025-08-02 00:00:00 Lipid panel (procedure) [code = 68395388] [facility] Future Scheduled Test 2025-08-02 00:00:00 Lipid panel (procedure) [code = 39342386] [facility] Future Scheduled Test 2025-08-02 00:00:00 Lipid panel (procedure) [code = 14388691] [facility] Future Scheduled Test 2025-08-02 00:00:00 Lipid panel (procedure) [code = 88775812] [facility] Future Scheduled Test 2025-08-02 00:00:00 Lipid panel (procedure) [code = 92914190] [facility] Future Scheduled Test 2025-08-02 00:00:00 Lipid panel (procedure) [code = 68268295] [facility] Future Scheduled Test 2025-08-02 00:00:00 Lipid panel (procedure) [code = 29739051] [facility] Future Scheduled Test 2025-08-02 00:00:00 Lipid panel (procedure) [code = 26084242] [facility] Future Scheduled Test 2025-08-02 00:00:00 Lipid panel (procedure) [code = 17427507] [facility] Future Scheduled Test 2025-08-02 00:00:00 Lipid panel (procedure) [code = 25091249] [facility] Future Scheduled Test 2025-08-02 00:00:00 Lipid panel (procedure) [code = 25051526] [facility] Future Scheduled Test 2025-08-02 00:00:00 Lipid panel (procedure) [code = 65540902] [facility] Future Scheduled Test 2025-08-02 00:00:00 Lipid panel (procedure) [code = 90278511] [facility] Future Scheduled Test 2025-08-02 00:00:00 Lipid panel (procedure) [code = 40060742] [facility] Future Scheduled Test 2025-08-02 00:00:00 Lipid panel (procedure) [code = 28427280] [facility] Future Scheduled Test 2025-08-02 00:00:00 Lipid panel (procedure) [code = 96822368] [facility] Future Scheduled Test 2025-08-02 00:00:00 Lipid panel (procedure) [code = 00202801] [facility] Future Scheduled Test 2025-08-02 00:00:00 Lipid panel (procedure) [code = 16871800] [facility] Future Scheduled Test 2025-08-02 00:00:00 Lipid panel (procedure) [code = 25773847] [facility] Future Scheduled Test 2025-08-02 00:00:00 Lipid panel (procedure) [code = 52384293] [facility] Future Scheduled Test 2025-08-02 00:00:00 Lipid panel (procedure) [code = 14635329] [facility] Future Scheduled Test 2025-08-02 00:00:00 Lipid panel (procedure) [code = 73908118] [facility] Future Scheduled Test 2025-08-02 00:00:00 Lipid panel (procedure) [code = 25335703] [facility] Future Scheduled Test 2025-08-02 00:00:00 Lipid panel (procedure) [code = 92760741] [facility] Future Scheduled Test 2025-08-02 00:00:00 Lipid panel (procedure) [code = 11013846] [facility] Future Scheduled Test 2025-08-02 00:00:00 Lipid panel (procedure) [code = 05339259] [facility] Future Scheduled Test 2025-08-02 00:00:00 Lipid panel (procedure) [code = 12758678] [facility] Future Scheduled Test 2025-08-02 00:00:00 Lipid panel (procedure) [code = 24773007] [facility] Future Scheduled Test 2025-08-02 00:00:00 Lipid panel (procedure) [code = 47789662] [facility] Future Scheduled Test 2025-08-02 00:00:00 Lipid panel (procedure) [code = 63599450] [facility] Future Scheduled Test 2025-08-02 00:00:00 Lipid panel (procedure) [code = 05578375] [facility] Future Scheduled Test 2025-08-02 00:00:00 Lipid panel (procedure) [code = 64824904] [facility] Future Scheduled Test 2025-08-02 00:00:00 Lipid panel (procedure) [code = 71879687] [facility] Future Scheduled Test 2025-08-02 00:00:00 Lipid panel (procedure) [code = 84003666] [facility] Future Scheduled Test 2025-08-02 00:00:00 Lipid panel (procedure) [code = 35569398] [facility] Future Scheduled Test 2025-08-02 00:00:00 Lipid panel (procedure) [code = 28334823] [facility] Future Scheduled Test 2025-08-02 00:00:00 Lipid panel (procedure) [code = 48167120] [facility] Future Scheduled Test 2025-08-02 00:00:00 Lipid panel (procedure) [code = 31326063] [facility] Future Scheduled Test 2025-08-02 00:00:00 Lipid panel (procedure) [code = 24757794] [facility] Future Scheduled Test 2025-08-02 00:00:00 Lipid panel (procedure) [code = 87617160] [facility] Future Scheduled Test 2025-08-02 00:00:00 Lipid panel (procedure) [code = 24036271] [facility] Future Scheduled Test 2025-08-02 00:00:00 Lipid panel (procedure) [code = 22553790] [facility] Future Scheduled Test 2025-08-02 00:00:00 Lipid panel (procedure) [code = 54857956] [facility] Future Scheduled Test 2025-08-02 00:00:00 Lipid panel (procedure) [code = 45436800] [facility] Future Scheduled Test 2025-08-02 00:00:00 Lipid panel (procedure) [code = 31329056] [facility] Future Scheduled Test 2025-08-02 00:00:00 Lipid panel (procedure) [code = 50588369] [facility] Future Scheduled Test 2025-08-02 00:00:00 Lipid panel (procedure) [code = 76695199] [facility] Future Scheduled Test 2025-08-02 00:00:00 Lipid panel (procedure) [code = 11552854] [facility] Future Scheduled Test 2025-08-02 00:00:00 Lipid panel (procedure) [code = 46488849] [facility] Future Scheduled Test 2025-08-02 00:00:00 Lipid panel (procedure) [code = 70751153] [facility] Future Scheduled Test 2025-08-02 00:00:00 Lipid panel (procedure) [code = 36515262] [facility] Future Scheduled Test 2025-08-02 00:00:00 Lipid panel (procedure) [code = 57194591] [facility] Future Scheduled Test 2025-08-02 00:00:00 Lipid panel (procedure) [code = 44928180] [facility] Future Scheduled Test 2025-08-02 00:00:00 Lipid panel (procedure) [code = 82003553] [facility] Future Scheduled Test 2025-08-02 00:00:00 Lipid panel (procedure) [code = 53647463] [facility] Future Scheduled Test 2025-08-02 00:00:00 Lipid panel (procedure) [code = 46528993] [facility] Future Scheduled Test 2025-08-02 00:00:00 Lipid panel (procedure) [code = 13211596] [facility] Future Scheduled Test 2025-08-02 00:00:00 Lipid panel (procedure) [code = 27476607] [facility] Future Scheduled Test 2024-05-28 00:00:00 Tobacco Cessation Counseling and Screening (12+) [code = Tobacco Cessation Counseling and Screening (12+)] [facility] Scheduled Test 2024-05-28 00:00:00 Tobacco Cessation Counseling and Screening (12+) [code = Tobacco Cessation Counseling and Screening (12+)] [facility] Scheduled Test 2024-05-28 00:00:00 Tobacco Cessation Counseling and Screening (12+) [code = Tobacco Cessation Counseling and Screening (12+)] [facility] Scheduled Test 2024-05-28 00:00:00 Tobacco Cessation Counseling and Screening (12+) [code = Tobacco Cessation Counseling and Screening (12+)] [facility] Scheduled Test 2024-05-28 00:00:00 Tobacco Cessation Counseling and Screening (12+) [code = Tobacco Cessation Counseling and Screening (12+)] [facility] Scheduled Test 2024-05-28 00:00:00 Tobacco Cessation Counseling and Screening (12+) [code = Tobacco Cessation Counseling and Screening (12+)] [facility] Scheduled Test 2024-05-28 00:00:00 Tobacco Cessation Counseling and Screening (12+) [code = Tobacco Cessation Counseling and Screening (12+)] [facility] Scheduled Test 2024-05-28 00:00:00 Tobacco Cessation Counseling and Screening (12+) [code = Tobacco Cessation Counseling and Screening (12+)] [facility] Scheduled Test 2024-05-28 00:00:00 Tobacco Cessation Counseling and Screening (12+) [code = Tobacco Cessation Counseling and Screening (12+)] [facility] Future Scheduled Test 2024-05-28 00:00:00 Tobacco Cessation Counseling and Screening (12+) [code = Tobacco Cessation Counseling and Screening (12+)] [facility] Scheduled Test 2024-05-28 00:00:00 Tobacco Cessation Counseling and Screening (12+) [code = Tobacco Cessation Counseling and Screening (12+)] [facility] Scheduled Test 2024-05-28 00:00:00 Tobacco Cessation Counseling and Screening (12+) [code = Tobacco Cessation Counseling and Screening (12+)] [facility] Future Scheduled Test 2024-05-28 00:00:00 Tobacco Cessation Counseling and Screening (12+) [code = Tobacco Cessation Counseling and Screening (12+)] [facility] Scheduled Test 2024-05-28 00:00:00 Tobacco Cessation Counseling and Screening (12+) [code = Tobacco Cessation Counseling and Screening (12+)] [facility] Scheduled Test 2024-05-28 00:00:00 Tobacco Cessation Counseling and Screening (12+) [code = Tobacco Cessation Counseling and Screening (12+)] [facility] Scheduled Test 2024-05-28 00:00:00 Tobacco Cessation Counseling and Screening (12+) [code = Tobacco Cessation Counseling and Screening (12+)] [facility] Scheduled Test 2024-05-28 00:00:00 Tobacco Cessation Counseling and Screening (12+) [code = Tobacco Cessation Counseling and Screening (12+)] [facility] Scheduled Test 2024-05-28 00:00:00 Tobacco Cessation Counseling and Screening (12+) [code = Tobacco Cessation Counseling and Screening (12+)] [facility] Scheduled Test 2024-05-28 00:00:00 Tobacco Cessation Counseling and Screening (12+) [code = Tobacco Cessation Counseling and Screening (12+)] [facility] Scheduled Test 2024-05-28 00:00:00 Tobacco Cessation Counseling and Screening (12+) [code = Tobacco Cessation Counseling and Screening (12+)] [facility] Scheduled Test 2024-05-28 00:00:00 Tobacco Cessation Counseling and Screening (12+) [code = Tobacco Cessation Counseling and Screening (12+)] [facility] Future Scheduled Test 2024-05-28 00:00:00 Tobacco Cessation Counseling and Screening (12+) [code = Tobacco Cessation Counseling and Screening (12+)] [facility] Scheduled Test 2024-05-28 00:00:00 Tobacco Cessation Counseling and Screening (12+) [code = Tobacco Cessation Counseling and Screening (12+)] [facility] Scheduled Test 2024-05-28 00:00:00 Tobacco Cessation Counseling and Screening (12+) [code = Tobacco Cessation Counseling and Screening (12+)] [facility] Future Scheduled Test 2024-05-28 00:00:00 Tobacco Cessation Counseling and Screening (12+) [code = Tobacco Cessation Counseling and Screening (12+)] [facility] Scheduled Test 2024-05-28 00:00:00 Tobacco Cessation Counseling and Screening (12+) [code = Tobacco Cessation Counseling and Screening (12+)] [facility] Scheduled Test 2024-05-28 00:00:00 Tobacco Cessation Counseling and Screening (12+) [code = Tobacco Cessation Counseling and Screening (12+)] [facility] Scheduled Test 2024-05-28 00:00:00 Tobacco Cessation Counseling and Screening (12+) [code = Tobacco Cessation Counseling and Screening (12+)] [facility] Scheduled Test 2024-05-28 00:00:00 Tobacco Cessation Counseling and Screening (12+) [code = Tobacco Cessation Counseling and Screening (12+)] [facility] Scheduled Test 2024-05-28 00:00:00 Tobacco Cessation Counseling and Screening (12+) [code = Tobacco Cessation Counseling and Screening (12+)] [facility] Scheduled Test 2024-05-28 00:00:00 Tobacco Cessation Counseling and Screening (12+) [code = Tobacco Cessation Counseling and Screening (12+)] [facility] Scheduled Test 2024-05-28 00:00:00 Tobacco Cessation Counseling and Screening (12+) [code = Tobacco Cessation Counseling and Screening (12+)] [facility] Scheduled Test 2024-05-28 00:00:00 Tobacco Cessation Counseling and Screening (12+) [code = Tobacco Cessation Counseling and Screening (12+)] [facility] Scheduled Test 2024-05-28 00:00:00 Tobacco Cessation Counseling and Screening (12+) [code = Tobacco Cessation Counseling and Screening (12+)] [facility] Scheduled Test 2024-05-28 00:00:00 Tobacco Cessation Counseling and Screening (12+) [code = Tobacco Cessation Counseling and Screening (12+)] [facility] Scheduled Test 2024-05-28 00:00:00 Tobacco Cessation Counseling and Screening (12+) [code = Tobacco Cessation Counseling and Screening (12+)] [facility] Future Scheduled Test 2024-05-28 00:00:00 Tobacco Cessation Counseling and Screening (12+) [code = Tobacco Cessation Counseling and Screening (12+)] [facility] Scheduled Test 2024-05-28 00:00:00 Tobacco Cessation Counseling and Screening (12+) [code = Tobacco Cessation Counseling and Screening (12+)] [facility] Scheduled Test 2024-05-28 00:00:00 Tobacco Cessation Counseling and Screening (12+) [code = Tobacco Cessation Counseling and Screening (12+)] [facility] Scheduled Test 2024-05-28 00:00:00 Tobacco Cessation Counseling and Screening (12+) [code = Tobacco Cessation Counseling and Screening (12+)] [facility] Scheduled Test 2024-05-28 00:00:00 Tobacco Cessation Counseling and Screening (12+) [code = Tobacco Cessation Counseling and Screening (12+)] [facility] Scheduled Test 2024-05-28 00:00:00 Tobacco Cessation Counseling and Screening (12+) [code = Tobacco Cessation Counseling and Screening (12+)] [facility] Scheduled Test 2024-05-28 00:00:00 Tobacco Cessation Counseling and Screening (12+) [code = Tobacco Cessation Counseling and Screening (12+)] [facility] Scheduled Test 2024-05-28 00:00:00 Tobacco Cessation Counseling and Screening (12+) [code = Tobacco Cessation Counseling and Screening (12+)] [facility] Scheduled Test 2024-05-28 00:00:00 Tobacco Cessation Counseling and Screening (12+) [code = Tobacco Cessation Counseling and Screening (12+)] [facility] Scheduled Test 2024-05-26 00:00:00 Tobacco Cessation Counseling and Screening (12+) [code = Tobacco Cessation Counseling and Screening (12+)] [facility] Scheduled Test 2024-05-26 00:00:00 Tobacco Cessation Counseling and Screening (12+) [code = Tobacco Cessation Counseling and Screening (12+)] [facility] Scheduled Test 2024-03-20 00:00:00 Influenza Vaccine (Season Ended) [code = Influenza Vaccine (Season Ended)] [facility] Future Scheduled Test 2024-03-20 00:00:00 Influenza Vaccine (Season Ended) [code = Influenza Vaccine (Season Ended)] [facility] Future Scheduled Test 2024-03-20 00:00:00 Influenza Vaccine (Season Ended) [code = Influenza Vaccine (Season Ended)] [facility] Future Scheduled Test 2024-03-20 00:00:00 Influenza Vaccine (Season Ended) [code = Influenza Vaccine (Season Ended)] [facility] Future Scheduled Test 2024-03-20 00:00:00 Influenza Vaccine (Season Ended) [code = Influenza Vaccine (Season Ended)] [facility] Future Scheduled Test 2024-03-20 00:00:00 Influenza Vaccine (Season Ended) [code = Influenza Vaccine (Season Ended)] [facility] Future Scheduled Test 2024-03-20 00:00:00 Influenza Vaccine (Season Ended) [code = Influenza Vaccine (Season Ended)] [facility] Future Scheduled Test 2024-03-20 00:00:00 Influenza Vaccine (Season Ended) [code = Influenza Vaccine (Season Ended)] [facility] Future Scheduled Test 2024-03-20 00:00:00 Influenza Vaccine (Season Ended) [code = Influenza Vaccine (Season Ended)] [facility] Future Scheduled Test 2024-03-20 00:00:00 Influenza Vaccine (Season Ended) [code = Influenza Vaccine (Season Ended)] [facility] Future Scheduled Test 2023-07-20 00:00:00 DEPRESSION SCREENING (12+) [code = DEPRESSION SCREENING (12+)] [facility] Future Scheduled Test 2023-07-20 00:00:00 DEPRESSION SCREENING (12+) [code = DEPRESSION SCREENING (12+)] [facility] Future Scheduled Test 2023-07-20 00:00:00 DEPRESSION SCREENING (12+) [code = DEPRESSION SCREENING (12+)] [facility] Future Scheduled Test 2023-07-20 00:00:00 DEPRESSION SCREENING (12+) [code = DEPRESSION SCREENING (12+)] [facility] Future Scheduled Test 2023-07-20 00:00:00 DEPRESSION SCREENING (12+) [code = DEPRESSION SCREENING (12+)] [facility] Future Scheduled Test 2023-07-20 00:00:00 DEPRESSION SCREENING (12+) [code = DEPRESSION SCREENING (12+)] [facility] Future Scheduled Test 2023-07-20 00:00:00 DEPRESSION SCREENING (12+) [code = DEPRESSION SCREENING (12+)] [facility] Future Scheduled Test 2023-07-20 00:00:00 DEPRESSION SCREENING (12+) [code = DEPRESSION SCREENING (12+)] [facility] Future Scheduled Test 2023-07-20 00:00:00 DEPRESSION SCREENING (12+) [code = DEPRESSION SCREENING (12+)] [facility] Future Scheduled Test 2023-07-20 00:00:00 DEPRESSION SCREENING (12+) [code = DEPRESSION SCREENING (12+)] [facility] Future Scheduled Test 2023-07-20 00:00:00 DEPRESSION SCREENING (12+) [code = DEPRESSION SCREENING (12+)] [facility] Future Scheduled Test 2023-07-20 00:00:00 DEPRESSION SCREENING (12+) [code = DEPRESSION SCREENING (12+)] [facility] Future Scheduled Test 2023-07-20 00:00:00 DEPRESSION SCREENING (12+) [code = DEPRESSION SCREENING (12+)] [facility] Future Scheduled Test 2023-07-20 00:00:00 DEPRESSION SCREENING (12+) [code = DEPRESSION SCREENING (12+)] [facility] Future Scheduled Test 2023-07-20 00:00:00 DEPRESSION SCREENING (12+) [code = DEPRESSION SCREENING (12+)] [facility] Future Scheduled Test 2023-07-20 00:00:00 DEPRESSION SCREENING (12+) [code = DEPRESSION SCREENING (12+)] [facility] Future Scheduled Test 2023-07-20 00:00:00 DEPRESSION SCREENING (12+) [code = DEPRESSION SCREENING (12+)] [facility] Future Scheduled Test 2023-07-20 00:00:00 DEPRESSION SCREENING (12+) [code = DEPRESSION SCREENING (12+)] [facility] Future Scheduled Test 2023-07-20 00:00:00 DEPRESSION SCREENING (12+) [code = DEPRESSION SCREENING (12+)] [facility] Future Scheduled Test 2023-07-20 00:00:00 DEPRESSION SCREENING (12+) [code = DEPRESSION SCREENING (12+)] [facility] Future Scheduled Test 2023-07-20 00:00:00 DEPRESSION SCREENING (12+) [code = DEPRESSION SCREENING (12+)] [facility] Future Scheduled Test 2023-07-20 00:00:00 DEPRESSION SCREENING (12+) [code = DEPRESSION SCREENING (12+)] [facility] Future Scheduled Test 2023-07-20 00:00:00 DEPRESSION SCREENING (12+) [code = DEPRESSION SCREENING (12+)] [facility] Future Scheduled Test 2023-07-20 00:00:00 DEPRESSION SCREENING (12+) [code = DEPRESSION SCREENING (12+)] [facility] Future Scheduled Test 2023-07-20 00:00:00 DEPRESSION SCREENING (12+) [code = DEPRESSION SCREENING (12+)] [facility] Future Scheduled Test 2023-07-20 00:00:00 DEPRESSION SCREENING (12+) [code = DEPRESSION SCREENING (12+)] [facility] Future Scheduled Test 2023-07-20 00:00:00 DEPRESSION SCREENING (12+) [code = DEPRESSION SCREENING (12+)] [facility] Future Scheduled Test 2023-07-20 00:00:00 DEPRESSION SCREENING (12+) [code = DEPRESSION SCREENING (12+)] [facility] Future Scheduled Test 2023-07-20 00:00:00 DEPRESSION SCREENING (12+) [code = DEPRESSION SCREENING (12+)] [facility] Future Scheduled Test 2023-07-20 00:00:00 DEPRESSION SCREENING (12+) [code = DEPRESSION SCREENING (12+)] [facility] Future Scheduled Test 2023-07-20 00:00:00 DEPRESSION SCREENING (12+) [code = DEPRESSION SCREENING (12+)] [facility] Future Scheduled Test 2023-07-20 00:00:00 DEPRESSION SCREENING (12+) [code = DEPRESSION SCREENING (12+)] [facility] Future Scheduled Test 2023-07-20 00:00:00 DEPRESSION SCREENING (12+) [code = DEPRESSION SCREENING (12+)] [facility] Future Scheduled Test 2023-07-20 00:00:00 DEPRESSION SCREENING (12+) [code = DEPRESSION SCREENING (12+)] [facility] Future Scheduled Test 2023-07-20 00:00:00 DEPRESSION SCREENING (12+) [code = DEPRESSION SCREENING (12+)] [facility] Future Scheduled Test 2023-07-20 00:00:00 DEPRESSION SCREENING (12+) [code = DEPRESSION SCREENING (12+)] [facility] Future Scheduled Test 2023-07-20 00:00:00 DEPRESSION SCREENING (12+) [code = DEPRESSION SCREENING (12+)] [facility] Future Scheduled Test 2023-03-20 00:00:00 INFLUENZA VACCINE (Season Ended) [code = INFLUENZA VACCINE (Season Ended)] [facility] Future Scheduled Test 2023-03-20 00:00:00 INFLUENZA VACCINE (Season Ended) [code = INFLUENZA VACCINE (Season Ended)] [facility] Future Scheduled Test 2023-03-20 00:00:00 INFLUENZA VACCINE (Season Ended) [code = INFLUENZA VACCINE (Season Ended)] [facility] Future Scheduled Test 2023-03-20 00:00:00 INFLUENZA VACCINE (Season Ended) [code = INFLUENZA VACCINE (Season Ended)] [facility] Future Scheduled Test 2023-03-20 00:00:00 INFLUENZA VACCINE (Season Ended) [code = INFLUENZA VACCINE (Season Ended)] [facility] Future Scheduled Test 2023-03-20 00:00:00 INFLUENZA VACCINE (Season Ended) [code = INFLUENZA VACCINE (Season Ended)] [facility] Future Scheduled Test 2023-03-20 00:00:00 Influenza Vaccine (Season Ended) [code = Influenza Vaccine (Season Ended)] [facility] Future Scheduled Test 2023-03-20 00:00:00 Influenza Vaccine (Season Ended) [code = Influenza Vaccine (Season Ended)] [facility] Future Scheduled Test 2023-03-20 00:00:00 Influenza Vaccine (#1) [code = Influenza Vaccine (#1)] [facility] Future Scheduled Test 2023-03-20 00:00:00 Influenza Vaccine (#1) [code = Influenza Vaccine (#1)] [facility] Future Scheduled Test 2023-03-20 00:00:00 Influenza Vaccine (#1) [code = Influenza Vaccine (#1)] [facility] Future Scheduled Test 2023-03-20 00:00:00 Influenza Vaccine (#1) [code = Influenza Vaccine (#1)] [facility] Future Scheduled Test 2023-03-20 00:00:00 COVID-19 VACCINE ( season) [code = COVID-19 VACCINE ( season)] [facility] Future Scheduled Test 2023-03-20 00:00:00 Influenza Vaccine (#1) [code = Influenza Vaccine (#1)] [facility] Future Scheduled Test 2023-03-20 00:00:00 COVID-19 VACCINE () [code = COVID-19 VACCINE ()] [facility] Future Scheduled Test 2023-03-20 00:00:00 Influenza Vaccine (#1) [code = Influenza Vaccine (#1)] [facility] Future Scheduled Test 2023-03-20 00:00:00 COVID-19 VACCINE ( season) [code = COVID-19 VACCINE ( season)] [facility] Future Scheduled Test 2023-03-20 00:00:00 Influenza Vaccine (#1) [code = Influenza Vaccine (#1)] [facility] Future Scheduled Test 2023-03-20 00:00:00 COVID-19 VACCINE ( season) [code = COVID-19 VACCINE ( season)] [facility] Future Scheduled Test 2023-03-20 00:00:00 Influenza Vaccine (#1) [code = Influenza Vaccine (#1)] [facility] Future Scheduled Test 2023-03-20 00:00:00 Influenza Vaccine (#1) [code = Influenza Vaccine (#1)] [facility] Future Scheduled Test 2023-03-20 00:00:00 COVID-19 VACCINE ( season) [code = COVID-19 VACCINE ( season)] [facility] Future Scheduled Test 2023-03-20 00:00:00 Influenza Vaccine (#1) [code = Influenza Vaccine (#1)] [facility] Future Scheduled Test 2023-03-20 00:00:00 COVID-19 VACCINE ( season) [code = COVID-19 VACCINE ( season)] [facility] Future Scheduled Test 2023-03-20 00:00:00 Influenza Vaccine (#1) [code = Influenza Vaccine (#1)] [facility] Future Scheduled Test 2023-03-20 00:00:00 COVID-19 VACCINE ( season) [code = COVID-19 VACCINE ()] [facility] Future Scheduled Test 2023-03-20 00:00:00 Influenza Vaccine (#1) [code = Influenza Vaccine (#1)] [facility] Future Scheduled Test 2023-03-20 00:00:00 COVID-19 VACCINE ( season) [code = COVID-19 VACCINE ()] [facility] Future Scheduled Test 2023-03-20 00:00:00 Influenza Vaccine (#1) [code = Influenza Vaccine (#1)] [facility] Future Scheduled Test 2023-03-20 00:00:00 COVID-19 VACCINE ( season) [code = COVID-19 VACCINE ( season)] [facility] Future Scheduled Test 2023-03-20 00:00:00 Influenza Vaccine (#1) [code = Influenza Vaccine (#1)] [facility] Future Scheduled Test 2023-03-20 00:00:00 COVID-19 VACCINE ( season) [code = COVID-19 VACCINE ( season)] [facility] Future Scheduled Test 2023-03-20 00:00:00 Influenza Vaccine (#1) [code = Influenza Vaccine (#1)] [facility] Future Scheduled Test 2023-03-20 00:00:00 COVID-19 VACCINE ( season) [code = COVID-19 VACCINE ( season)] [facility] Future Scheduled Test 2023-03-20 00:00:00 Influenza Vaccine (#1) [code = Influenza Vaccine (#1)] [facility] Future Scheduled Test 2023-03-20 00:00:00 Influenza Vaccine (#1) [code = Influenza Vaccine (#1)] [facility] Future Scheduled Test 2023-03-20 00:00:00 COVID-19 VACCINE ( season) [code = COVID-19 VACCINE ()] [facility] Future Scheduled Test 2023-03-20 00:00:00 Influenza Vaccine (#1) [code = Influenza Vaccine (#1)] [facility] Future Scheduled Test 2023-03-20 00:00:00 COVID-19 VACCINE ( season) [code = COVID-19 VACCINE ()] [facility] Future Scheduled Test 2023-03-20 00:00:00 Influenza Vaccine (#1) [code = Influenza Vaccine (#1)] [facility] Future Scheduled Test 2023-03-20 00:00:00 COVID-19 VACCINE ( season) [code = COVID-19 VACCINE ( season)] [facility] Future Scheduled Test 2023-03-20 00:00:00 Influenza Vaccine (#1) [code = Influenza Vaccine (#1)] [facility] Future Scheduled Test 2023-03-20 00:00:00 COVID-19 VACCINE ( season) [code = COVID-19 VACCINE ( season)] [facility] Future Scheduled Test 2023-03-20 00:00:00 Influenza Vaccine (#1) [code = Influenza Vaccine (#1)] [facility] Future Scheduled Test 2023-03-20 00:00:00 COVID-19 VACCINE ( season) [code = COVID-19 VACCINE ()] [facility] Future Scheduled Test 2023-03-20 00:00:00 Influenza Vaccine (#1) [code = Influenza Vaccine (#1)] [facility] Future Scheduled Test 2023-03-20 00:00:00 COVID-19 VACCINE ( season) [code = COVID-19 VACCINE ()] [facility] Future Scheduled Test 2023-03-20 00:00:00 Influenza Vaccine (#1) [code = Influenza Vaccine (#1)] [facility] Future Scheduled Test 2023-03-20 00:00:00 Influenza Vaccine (#1) [code = Influenza Vaccine (#1)] [facility] Future Scheduled Test 2023-03-20 00:00:00 COVID-19 VACCINE ( season) [code = COVID-19 VACCINE ()] [facility] Future Scheduled Test 2023-03-20 00:00:00 Influenza Vaccine (#1) [code = Influenza Vaccine (#1)] [facility] Future Scheduled Test 2023-03-20 00:00:00 COVID-19 VACCINE ( season) [code = COVID-19 VACCINE ()] [facility] Future Scheduled Test 2023-03-20 00:00:00 Influenza Vaccine (#1) [code = Influenza Vaccine (#1)] [facility] Future Scheduled Test 2023-03-20 00:00:00 COVID-19 VACCINE ( season) [code = COVID-19 VACCINE ( season)] [facility] Future Scheduled Test 2023-03-20 00:00:00 Influenza Vaccine (#1) [code = Influenza Vaccine (#1)] [facility] Future Scheduled Test 2023-03-20 00:00:00 COVID-19 VACCINE (4 - 2023-24 season) [code = COVID-19 VACCINE ( season)] [facility] Future Scheduled Test 2023-03-20 00:00:00 Influenza Vaccine (#1) [code = Influenza Vaccine (#1)] [facility] Future Scheduled Test 2023-03-20 00:00:00 Influenza Vaccine (#1) [code = Influenza Vaccine (#1)] [facility] Future Scheduled Test 2023-03-20 00:00:00 COVID-19 VACCINE ( season) [code = COVID-19 VACCINE ()] [facility] Future Scheduled Test 2023-03-20 00:00:00 Influenza Vaccine (#1) [code = Influenza Vaccine (#1)] [facility] Future Scheduled Test 2023-03-20 00:00:00 COVID-19 VACCINE ( season) [code = COVID-19 VACCINE ()] [facility] Future Scheduled Test 2023-03-20 00:00:00 Influenza Vaccine (#1) [code = Influenza Vaccine (#1)] [facility] Future Scheduled Test 2023-03-20 00:00:00 COVID-19 VACCINE ( season) [code = COVID-19 VACCINE ( season)] [facility] Future Scheduled Test 2023-03-20 00:00:00 Influenza Vaccine (#1) [code = Influenza Vaccine (#1)] [facility] Future Scheduled Test 2023-03-20 00:00:00 COVID-19 VACCINE ( season) [code = COVID-19 VACCINE ( season)] [facility] Future Scheduled Test 2023-03-20 00:00:00 Influenza Vaccine (#1) [code = Influenza Vaccine (#1)] [facility] Future Scheduled Test 2023-03-20 00:00:00 COVID-19 VACCINE ( season) [code = COVID-19 VACCINE ()] [facility] Future Scheduled Test 2023-03-20 00:00:00 Influenza Vaccine (#1) [code = Influenza Vaccine (#1)] [facility] Future Scheduled Test 2023-03-20 00:00:00 COVID-19 VACCINE ( season) [code = COVID-19 VACCINE ( season)] [facility] Future Scheduled Test 2023-03-20 00:00:00 Influenza Vaccine (#1) [code = Influenza Vaccine (#1)] [facility] Future Scheduled Test 2023-03-20 00:00:00 Influenza Vaccine (#1) [code = Influenza Vaccine (#1)] [facility] Future Scheduled Test 2023-03-20 00:00:00 COVID-19 VACCINE ( season) [code = COVID-19 VACCINE ()] [facility] Future Scheduled Test 2023-03-20 00:00:00 Influenza Vaccine (#1) [code = Influenza Vaccine (#1)] [facility] Future Scheduled Test 2023-03-20 00:00:00 COVID-19 VACCINE ( season) [code = COVID-19 VACCINE ()] [facility] Future Scheduled Test 2023-03-20 00:00:00 Influenza Vaccine (#1) [code = Influenza Vaccine (#1)] [facility] Future Scheduled Test 2023-03-20 00:00:00 COVID-19 VACCINE ( season) [code = COVID-19 VACCINE ()] [facility] Future Scheduled Test 2023-03-20 00:00:00 COVID-19 VACCINE ( season) [code = COVID-19 VACCINE ()] [facility] Future Scheduled Test 2023-03-20 00:00:00 COVID-19 VACCINE ( season) [code = COVID-19 VACCINE ()] [facility] Future Scheduled Test 2023-03-20 00:00:00 COVID-19 VACCINE ( season) [code = COVID-19 VACCINE ()] [facility] Future Scheduled Test 2023-03-20 00:00:00 COVID-19 VACCINE ( season) [code = COVID-19 VACCINE ()] [facility] Future Scheduled Test 2023-03-20 00:00:00 COVID-19 VACCINE ( season) [code = COVID-19 VACCINE ()] [facility] Future Scheduled Test 2023-03-20 00:00:00 Influenza Vaccine (#1) [code = Influenza Vaccine (#1)] [facility] Future Scheduled Test 2023-03-20 00:00:00 COVID-19 VACCINE () [code = COVID-19 VACCINE ()] [facility] Future Scheduled Test 2023-03-20 00:00:00 COVID-19 VACCINE () [code = COVID-19 VACCINE ()] [facility] Future Scheduled Test 2023-03-20 00:00:00 COVID-19 VACCINE ( season) [code = COVID-19 VACCINE ()] [facility] Future Scheduled Test 2023-03-20 00:00:00 COVID-19 VACCINE ( season) [code = COVID-19 VACCINE ()] [facility] Future Scheduled Test 2023-03-20 00:00:00 Influenza Vaccine (#1) [code = Influenza Vaccine (#1)] [facility] Scheduled Test 2023-03-20 00:00:00 Influenza Vaccine (#1) [code = Influenza Vaccine (#1)] [facility] Scheduled Test 2023-03-20 00:00:00 Influenza Vaccine (#1) [code = Influenza Vaccine (#1)] [facility] Scheduled Test 2023-03-20 00:00:00 Influenza Vaccine (#1) [code = Influenza Vaccine (#1)] [facility] Scheduled Test 2023-03-20 00:00:00 Influenza Vaccine (#1) [code = Influenza Vaccine (#1)] [facility] Scheduled Test 2023-03-20 00:00:00 Influenza Vaccine (#1) [code = Influenza Vaccine (#1)] [facility] Scheduled Test 2023-03-20 00:00:00 Influenza Vaccine (#1) [code = Influenza Vaccine (#1)] [facility] Scheduled Test 2023-03-20 00:00:00 Influenza Vaccine (#1) [code = Influenza Vaccine (#1)] [facility] Scheduled Test 2023-03-20 00:00:00 Influenza Vaccine (#1) [code = Influenza Vaccine (#1)] [facility] Scheduled Test 2023-03-20 00:00:00 COVID-19 VACCINE ( season) [code = COVID-19 VACCINE ( season)] [facility] Scheduled Test 2022-07-20 00:00:00 DEPRESSION SCREENING (12+) [code = DEPRESSION SCREENING (12+)] [facility] Scheduled Test 2022-07-20 00:00:00 DEPRESSION SCREENING (12+) [code = DEPRESSION SCREENING (12+)] [facility] Scheduled Test 2022-07-20 00:00:00 DEPRESSION SCREENING (12+) [code = DEPRESSION SCREENING (12+)] [facility] Scheduled Test 2022-07-20 00:00:00 DEPRESSION SCREENING (12+) [code = DEPRESSION SCREENING (12+)] [facility] Scheduled Test 2022-07-20 00:00:00 DEPRESSION SCREENING (12+) [code = DEPRESSION SCREENING (12+)] [facility] Scheduled Test 2022-07-20 00:00:00 DEPRESSION SCREENING (12+) [code = DEPRESSION SCREENING (12+)] [facility] Scheduled Test 2022-07-20 00:00:00 DEPRESSION SCREENING (12+) [code = DEPRESSION SCREENING (12+)] [facility] Scheduled Test 2022-07-20 00:00:00 DEPRESSION SCREENING (12+) [code = DEPRESSION SCREENING (12+)] [facility] Scheduled Test 2022-07-20 00:00:00 DEPRESSION SCREENING (12+) [code = DEPRESSION SCREENING (12+)] [facility] Scheduled Test 2022-07-20 00:00:00 DEPRESSION SCREENING (12+) [code = DEPRESSION SCREENING (12+)] [facility] Scheduled Test 2022-07-20 00:00:00 DEPRESSION SCREENING (12+) [code = DEPRESSION SCREENING (12+)] [facility] Scheduled Test 2022-07-20 00:00:00 DEPRESSION SCREENING (12+) [code = DEPRESSION SCREENING (12+)] [facility] Scheduled Test 2022-07-20 00:00:00 DEPRESSION SCREENING (12+) [code = DEPRESSION SCREENING (12+)] [facility] Scheduled Test 2022-07-20 00:00:00 DEPRESSION SCREENING (12+) [code = DEPRESSION SCREENING (12+)] [facility] Scheduled Test 2022-07-20 00:00:00 DEPRESSION SCREENING (12+) [code = DEPRESSION SCREENING (12+)] [facility] Scheduled Test 2022-07-20 00:00:00 DEPRESSION SCREENING (12+) [code = DEPRESSION SCREENING (12+)] [facility] Scheduled Test 2022-07-20 00:00:00 DEPRESSION SCREENING (12+) [code = DEPRESSION SCREENING (12+)] [facility] Scheduled Test 2022-07-20 00:00:00 DEPRESSION SCREENING (12+) [code = DEPRESSION SCREENING (12+)] [facility] Scheduled Test 2022-07-20 00:00:00 DEPRESSION SCREENING (12+) [code = DEPRESSION SCREENING (12+)] [facility] Scheduled Test 2022-07-20 00:00:00 DEPRESSION SCREENING (12+) [code = DEPRESSION SCREENING (12+)] [facility] Scheduled Test 2022-07-20 00:00:00 DEPRESSION SCREENING (12+) [code = DEPRESSION SCREENING (12+)] [facility] Scheduled Test 2022-07-20 00:00:00 DEPRESSION SCREENING (12+) [code = DEPRESSION SCREENING (12+)] [facility] Scheduled Test 2022-07-20 00:00:00 DEPRESSION SCREENING (12+) [code = DEPRESSION SCREENING (12+)] [facility] Scheduled Test 2022-07-20 00:00:00 DEPRESSION SCREENING (12+) [code = DEPRESSION SCREENING (12+)] [facility] Scheduled Test 2022-07-20 00:00:00 DEPRESSION SCREENING (12+) [code = DEPRESSION SCREENING (12+)] [facility] Scheduled Test 2022-07-20 00:00:00 DEPRESSION SCREENING (12+) [code = DEPRESSION SCREENING (12+)] [facility] Scheduled Test 2022-07-20 00:00:00 DEPRESSION SCREENING (12+) [code = DEPRESSION SCREENING (12+)] [facility] Scheduled Test 2022-07-20 00:00:00 DEPRESSION SCREENING (12+) [code = DEPRESSION SCREENING (12+)] [facility] Scheduled Test 2022-07-20 00:00:00 DEPRESSION SCREENING (12+) [code = DEPRESSION SCREENING (12+)] [facility] Scheduled Test 2022-07-20 00:00:00 DEPRESSION SCREENING (12+) [code = DEPRESSION SCREENING (12+)] [facility] Scheduled Test 2022-07-20 00:00:00 DEPRESSION SCREENING (12+) [code = DEPRESSION SCREENING (12+)] [facility] Scheduled Test 2022-07-20 00:00:00 DEPRESSION SCREENING (12+) [code = DEPRESSION SCREENING (12+)] [facility] Scheduled Test 2022-07-20 00:00:00 DEPRESSION SCREENING (12+) [code = DEPRESSION SCREENING (12+)] [facility] Scheduled Test 2022-06-21 00:00:00 COVID-19 VACCINE (4 - Booster for Pfizer series) [code = COVID-19 VACCINE (4 - Booster for Pfizer series)] [facility] Scheduled Test 2022-06-21 00:00:00 COVID-19 VACCINE (4 - Booster for Pfizer series) [code = COVID-19 VACCINE (4 - Booster for Pfizer series)] [facility] Scheduled Test 2022-06-21 00:00:00 COVID-19 VACCINE (4 - Booster for Pfizer series) [code = COVID-19 VACCINE (4 - Booster for Pfizer series)] [facility] Scheduled Test 2022-06-21 00:00:00 COVID-19 VACCINE (4 - Booster for Pfizer series) [code = COVID-19 VACCINE (4 - Booster for Pfizer series)] [facility] Scheduled Test 2022-04-16 00:00:00 COVID-19 VACCINE (4 - Booster for Pfizer series) [code = COVID-19 VACCINE (4 - Booster for Pfizer series)] [facility] Scheduled Test 2022-04-16 00:00:00 COVID-19 VACCINE (4 - Booster for Pfizer series) [code = COVID-19 VACCINE (4 - Booster for Pfizer series)] [facility] Scheduled Test 2022-04-16 00:00:00 COVID-19 VACCINE (4 - Booster for Pfizer series) [code = COVID-19 VACCINE (4 - Booster for Pfizer series)] [facility] Scheduled Test 2022-04-16 00:00:00 COVID-19 VACCINE (4 - Booster for Pfizer series) [code = COVID-19 VACCINE (4 - Booster for Pfizer series)] [facility] Scheduled Test 2022-04-16 00:00:00 COVID-19 VACCINE (4 - Booster for Pfizer series) [code = COVID-19 VACCINE (4 - Booster for Pfizer series)] [facility] Scheduled Test 2022-04-16 00:00:00 COVID-19 VACCINE (4 - Booster for Pfizer series) [code = COVID-19 VACCINE (4 - Booster for Pfizer series)] [facility] Scheduled Test 2022-04-16 00:00:00 COVID-19 VACCINE (4 - Booster for Pfizer series) [code = COVID-19 VACCINE (4 - Booster for Pfizer series)] [facility] Scheduled Test 2022-04-16 00:00:00 COVID-19 VACCINE (4 - Booster for Pfizer series) [code = COVID-19 VACCINE (4 - Booster for Pfizer series)] [facility] Scheduled Test 2022-04-16 00:00:00 COVID-19 VACCINE (4 - Booster for Pfizer series) [code = COVID-19 VACCINE (4 - Booster for Pfizer series)] [facility] Scheduled Test 2022-04-16 00:00:00 COVID-19 VACCINE (4 - Booster for Pfizer series) [code = COVID-19 VACCINE (4 - Booster for Pfizer series)] [facility] Scheduled Test 2022-04-16 00:00:00 COVID-19 VACCINE (4 - Booster for Pfizer series) [code = COVID-19 VACCINE (4 - Booster for Pfizer series)] [facility] Scheduled Test 2022-04-16 00:00:00 COVID-19 VACCINE (4 - Booster for Pfizer series) [code = COVID-19 VACCINE (4 - Booster for Pfizer series)] [facility] Scheduled Test 2022-04-16 00:00:00 COVID-19 VACCINE (4 - Booster for Pfizer series) [code = COVID-19 VACCINE (4 - Booster for Pfizer series)] [facility] Scheduled Test 2022-04-16 00:00:00 COVID-19 VACCINE (4 - Booster for Pfizer series) [code = COVID-19 VACCINE (4 - Booster for Pfizer series)] [facility] Scheduled Test 2022-04-16 00:00:00 COVID-19 VACCINE (4 - Booster for Pfizer series) [code = COVID-19 VACCINE (4 - Booster for Pfizer series)] [facility] Scheduled Test 2022-04-16 00:00:00 COVID-19 VACCINE (4 - Booster for Pfizer series) [code = COVID-19 VACCINE (4 - Booster for Pfizer series)] [facility] Scheduled Test 2022-04-16 00:00:00 COVID-19 VACCINE (4 - Booster for Pfizer series) [code = COVID-19 VACCINE (4 - Booster for Pfizer series)] [facility] Scheduled Test 2022-04-16 00:00:00 COVID-19 VACCINE (4 - Booster for Pfizer series) [code = COVID-19 VACCINE (4 - Booster for Pfizer series)] [facility] Scheduled Test 2022-04-16 00:00:00 COVID-19 VACCINE (4 - Booster for Pfizer series) [code = COVID-19 VACCINE (4 - Booster for Pfizer series)] [facility] Scheduled Test 2022-04-16 00:00:00 COVID-19 VACCINE (4 - Booster for Pfizer series) [code = COVID-19 VACCINE (4 - Booster for Pfizer series)] [facility] Scheduled Test 2022-04-16 00:00:00 COVID-19 VACCINE (4 - Pfizer series) [code = COVID-19 VACCINE (4 - Pfizer series)] [facility] Scheduled Test 2022-04-16 00:00:00 COVID-19 VACCINE (4 - Pfizer series) [code = COVID-19 VACCINE (4 - Pfizer series)] [facility] Scheduled Test 2022-04-16 00:00:00 COVID-19 VACCINE (4 - Pfizer series) [code = COVID-19 VACCINE (4 - Pfizer series)] [facility] Scheduled Test 2022-04-16 00:00:00 COVID-19 VACCINE (4 - Pfizer series) [code = COVID-19 VACCINE (4 - Pfizer series)] [facility] Scheduled Test 2022-04-16 00:00:00 COVID-19 VACCINE (4 - Booster for Pfizer series) [code = COVID-19 VACCINE (4 - Booster for Pfizer series)] [facility] Scheduled Test 2022-04-16 00:00:00 COVID-19 VACCINE (4 - Pfizer series) [code = COVID-19 VACCINE (4 - Pfizer series)] [facility] Scheduled Test 2022-03-20 00:00:00 INFLUENZA VACCINE (#1) [code = INFLUENZA VACCINE (#1)] [facility] Scheduled Test 2022-03-20 00:00:00 INFLUENZA VACCINE (#1) [code = INFLUENZA VACCINE (#1)] [facility] Scheduled Test 2022-03-20 00:00:00 INFLUENZA VACCINE (#1) [code = INFLUENZA VACCINE (#1)] [facility] Scheduled Test 2022-03-20 00:00:00 INFLUENZA VACCINE (#1) [code = INFLUENZA VACCINE (#1)] [facility] Scheduled Test 2022-01-14 00:00:00 SHINGLES VACCINES (1 of 2) [code = SHINGLES VACCINES (1 of 2)] [facility] Scheduled Test 2022-01-14 00:00:00 SHINGLES VACCINES (1 of 2) [code = SHINGLES VACCINES (1 of 2)] [facility] Scheduled Test 2022-01-14 00:00:00 SHINGLES VACCINES (1 of 2) [code = SHINGLES VACCINES (1 of 2)] [facility] Scheduled Test 2022-01-14 00:00:00 SHINGLES VACCINES (1 of 2) [code = SHINGLES VACCINES (1 of 2)] [facility] Scheduled Test 2022-01-14 00:00:00 SHINGLES VACCINES (1 of 2) [code = SHINGLES VACCINES (1 of 2)] [facility] Scheduled Test 2022-01-14 00:00:00 SHINGLES VACCINES (1 of 2) [code = SHINGLES VACCINES (1 of 2)] [facility] Scheduled Test 2022-01-14 00:00:00 SHINGLES VACCINES (1 of 2) [code = SHINGLES VACCINES (1 of 2)] [facility] Scheduled Test 2022-01-14 00:00:00 SHINGLES VACCINES (1 of 2) [code = SHINGLES VACCINES (1 of 2)] [facility] Scheduled Test 2022-01-14 00:00:00 SHINGLES VACCINES (1 of 2) [code = SHINGLES VACCINES (1 of 2)] [facility] Scheduled Test 2022-01-14 00:00:00 SHINGLES VACCINES (1 of 2) [code = SHINGLES VACCINES (1 of 2)] [facility] Scheduled Test 2022-01-14 00:00:00 SHINGLES VACCINES (1 of 2) [code = SHINGLES VACCINES (1 of 2)] [facility] Scheduled Test 2022-01-14 00:00:00 SHINGLES VACCINES (1 of 2) [code = SHINGLES VACCINES (1 of 2)] [facility] Scheduled Test 2022-01-14 00:00:00 SHINGLES VACCINES (1 of 2) [code = SHINGLES VACCINES (1 of 2)] [facility] Scheduled Test 2022-01-14 00:00:00 SHINGLES VACCINES (1 of 2) [code = SHINGLES VACCINES (1 of 2)] [facility] Scheduled Test 2022-01-14 00:00:00 SHINGLES VACCINES (1 of 2) [code = SHINGLES VACCINES (1 of 2)] [facility] Scheduled Test 2022-01-14 00:00:00 Screening for malignant neoplasm of lung (procedure) [code = [id number]] [facility] Scheduled Test 2022-01-14 00:00:00 SHINGLES VACCINES (1 of 2) [code = SHINGLES VACCINES (1 of 2)] [facility] Scheduled Test 2022-01-14 00:00:00 Screening for malignant neoplasm of lung (procedure) [code = 258547102] [facility] Scheduled Test 2022-01-14 00:00:00 SHINGLES VACCINES (1 of 2) [code = SHINGLES VACCINES (1 of 2)] [facility] Scheduled Test 2022-01-14 00:00:00 Screening for malignant neoplasm of lung (procedure) [code = 128804024] [facility] Scheduled Test 2022-01-14 00:00:00 SHINGLES VACCINES (1 of 2) [code = SHINGLES VACCINES (1 of 2)] [facility] Scheduled Test 2022-01-14 00:00:00 Screening for malignant neoplasm of lung (procedure) [code = [id number]] [facility] Scheduled Test 2022-01-14 00:00:00 SHINGLES VACCINES (1 of 2) [code = SHINGLES VACCINES (1 of 2)] [facility] Scheduled Test 2022-01-14 00:00:00 Screening for malignant neoplasm of lung (procedure) [code = 615986053] [facility] Scheduled Test 2022-01-14 00:00:00 SHINGLES VACCINES (1 of 2) [code = SHINGLES VACCINES (1 of 2)] [facility] Scheduled Test 2022-01-14 00:00:00 Screening for malignant neoplasm of lung (procedure) [code = 528136131] [facility] Scheduled Test 2022-01-14 00:00:00 SHINGLES VACCINES (1 of 2) [code = SHINGLES VACCINES (1 of 2)] [facility] Scheduled Test 2022-01-14 00:00:00 Screening for malignant neoplasm of lung (procedure) [code = 572944232] [facility] Scheduled Test 2022-01-14 00:00:00 SHINGLES VACCINES (1 of 2) [code = SHINGLES VACCINES (1 of 2)] [facility] Scheduled Test 2022-01-14 00:00:00 Screening for malignant neoplasm of lung (procedure) [code = 903375061] [facility] Scheduled Test 2022-01-14 00:00:00 SHINGLES VACCINES (1 of 2) [code = SHINGLES VACCINES (1 of 2)] [facility] Scheduled Test 2022-01-14 00:00:00 Screening for malignant neoplasm of lung (procedure) [code = 577531958] [facility] Scheduled Test 2022-01-14 00:00:00 SHINGLES VACCINES (1 of 2) [code = SHINGLES VACCINES (1 of 2)] [facility] Scheduled Test 2022-01-14 00:00:00 Screening for malignant neoplasm of lung (procedure) [code = 151870335] [facility] Scheduled Test 2022-01-14 00:00:00 SHINGLES VACCINES (1 of 2) [code = SHINGLES VACCINES (1 of 2)] [facility] Scheduled Test 2022-01-14 00:00:00 Screening for malignant neoplasm of lung (procedure) [code = [id number]] [facility] Scheduled Test 2022-01-14 00:00:00 SHINGLES VACCINES (1 of 2) [code = SHINGLES VACCINES (1 of 2)] [facility] Scheduled Test 2022-01-14 00:00:00 Screening for malignant neoplasm of lung (procedure) [code = 011994629] [facility] Scheduled Test 2022-01-14 00:00:00 SHINGLES VACCINES (1 of 2) [code = SHINGLES VACCINES (1 of 2)] [facility] Scheduled Test 2022-01-14 00:00:00 Screening for malignant neoplasm of lung (procedure) [code = [id number]] [facility] Scheduled Test 2022-01-14 00:00:00 SHINGLES VACCINES (1 of 2) [code = SHINGLES VACCINES (1 of 2)] [facility] Scheduled Test 2022-01-14 00:00:00 Screening for malignant neoplasm of lung (procedure) [code = 128081396] [facility] Scheduled Test 2022-01-14 00:00:00 SHINGLES VACCINES (1 of 2) [code = SHINGLES VACCINES (1 of 2)] [facility] Scheduled Test 2022-01-14 00:00:00 Screening for malignant neoplasm of lung (procedure) [code = 059921631] [facility] Scheduled Test 2022-01-14 00:00:00 SHINGLES VACCINES (1 of 2) [code = SHINGLES VACCINES (1 of 2)] [facility] Scheduled Test 2022-01-14 00:00:00 Screening for malignant neoplasm of lung (procedure) [code = 851202780] [facility] Scheduled Test 2022-01-14 00:00:00 SHINGLES VACCINES (1 of 2) [code = SHINGLES VACCINES (1 of 2)] [facility] Scheduled Test 2022-01-14 00:00:00 Screening for malignant neoplasm of lung (procedure) [code = 200509087] [facility] Scheduled Test 2022-01-14 00:00:00 SHINGLES VACCINES (1 of 2) [code = SHINGLES VACCINES (1 of 2)] [facility] Scheduled Test 2022-01-14 00:00:00 Screening for malignant neoplasm of lung (procedure) [code = 069857656] [facility] Scheduled Test 2022-01-14 00:00:00 SHINGLES VACCINES (1 of 2) [code = SHINGLES VACCINES (1 of 2)] [facility] Scheduled Test 2022-01-14 00:00:00 Screening for malignant neoplasm of lung (procedure) [code = 526146480] [facility] Scheduled Test 2022-01-14 00:00:00 Screening for malignant neoplasm of lung (procedure) [code = 055850960] [facility] Scheduled Test 2022-01-14 00:00:00 SHINGLES VACCINES (1 of 2) [code = SHINGLES VACCINES (1 of 2)] [facility] Scheduled Test 2022-01-14 00:00:00 SHINGLES VACCINES (1 of 2) [code = SHINGLES VACCINES (1 of 2)] [facility] Scheduled Test 2022-01-14 00:00:00 Screening for malignant neoplasm of lung (procedure) [code = 936898464] [facility] Scheduled Test 2022-01-14 00:00:00 SHINGLES VACCINES (1 of 2) [code = SHINGLES VACCINES (1 of 2)] [facility] Scheduled Test 2022-01-14 00:00:00 Screening for malignant neoplasm of lung (procedure) [code = 682059197] [facility] Scheduled Test 2022-01-14 00:00:00 SHINGLES VACCINES (1 of 2) [code = SHINGLES VACCINES (1 of 2)] [facility] Scheduled Test 2022-01-14 00:00:00 Screening for malignant neoplasm of lung (procedure) [code = 686598040] [facility] Scheduled Test 2022-01-14 00:00:00 SHINGLES VACCINES (1 of 2) [code = SHINGLES VACCINES (1 of 2)] [facility] Scheduled Test 2022-01-14 00:00:00 Screening for malignant neoplasm of lung (procedure) [code = 151436381] [facility] Scheduled Test 2022-01-14 00:00:00 Screening for malignant neoplasm of lung (procedure) [code = 114824457] [facility] Scheduled Test 2022-01-14 00:00:00 SHINGLES VACCINES (1 of 2) [code = SHINGLES VACCINES (1 of 2)] [facility] Scheduled Test 2022-01-14 00:00:00 SHINGLES VACCINES (1 of 2) [code = SHINGLES VACCINES (1 of 2)] [facility] Scheduled Test 2022-01-14 00:00:00 Screening for malignant neoplasm of lung (procedure) [code = 094387971] [facility] Scheduled Test 2022-01-14 00:00:00 SHINGLES VACCINES (1 of 2) [code = SHINGLES VACCINES (1 of 2)] [facility] Scheduled Test 2022-01-14 00:00:00 Screening for malignant neoplasm of lung (procedure) [code = 102611640] [facility] Scheduled Test 2022-01-14 00:00:00 SHINGLES VACCINES (1 of 2) [code = SHINGLES VACCINES (1 of 2)] [facility] Scheduled Test 2022-01-14 00:00:00 Screening for malignant neoplasm of lung (procedure) [code = 052196467] [facility] Scheduled Test 2022-01-14 00:00:00 SHINGLES VACCINES (1 of 2) [code = SHINGLES VACCINES (1 of 2)] [facility] Scheduled Test 2022-01-14 00:00:00 Screening for malignant neoplasm of lung (procedure) [code = 361034660] [facility] Scheduled Test 2022-01-14 00:00:00 SHINGLES VACCINES (1 of 2) [code = SHINGLES VACCINES (1 of 2)] [facility] Scheduled Test 2022-01-14 00:00:00 Screening for malignant neoplasm of lung (procedure) [code = 152304544] [facility] Scheduled Test 2022-01-14 00:00:00 SHINGLES VACCINES (1 of 2) [code = SHINGLES VACCINES (1 of 2)] [facility] Scheduled Test 2022-01-14 00:00:00 Screening for malignant neoplasm of lung (procedure) [code = 569015814] [facility] Scheduled Test 2022-01-14 00:00:00 Screening for malignant neoplasm of lung (procedure) [code = 769837043] [facility] Scheduled Test 2022-01-14 00:00:00 SHINGLES VACCINES (1 of 2) [code = SHINGLES VACCINES (1 of 2)] [facility] Scheduled Test 2022-01-14 00:00:00 SHINGLES VACCINES (1 of 2) [code = SHINGLES VACCINES (1 of 2)] [facility] Scheduled Test 2022-01-14 00:00:00 Screening for malignant neoplasm of lung (procedure) [code = 238089708] [facility] Scheduled Test 2022-01-14 00:00:00 SHINGLES VACCINES (1 of 2) [code = SHINGLES VACCINES (1 of 2)] [facility] Scheduled Test 2022-01-14 00:00:00 Screening for malignant neoplasm of lung (procedure) [code = 377074582] [facility] Scheduled Test 2022-01-14 00:00:00 SHINGLES VACCINES (1 of 2) [code = SHINGLES VACCINES (1 of 2)] [facility] Scheduled Test 2022-01-14 00:00:00 Screening for malignant neoplasm of lung (procedure) [code = 823415091] [facility] Scheduled Test 2022-01-14 00:00:00 SHINGLES VACCINES (1 of 2) [code = SHINGLES VACCINES (1 of 2)] [facility] Scheduled Test 2022-01-14 00:00:00 Screening for malignant neoplasm of lung (procedure) [code = 324137687] [facility] Scheduled Test 2022-01-14 00:00:00 SHINGLES VACCINES (1 of 2) [code = SHINGLES VACCINES (1 of 2)] [facility] Scheduled Test 2022-01-14 00:00:00 Screening for malignant neoplasm of lung (procedure) [code = 833928094] [facility] Scheduled Test 2022-01-14 00:00:00 SHINGLES VACCINES (1 of 2) [code = SHINGLES VACCINES (1 of 2)] [facility] Scheduled Test 2022-01-14 00:00:00 Screening for malignant neoplasm of lung (procedure) [code = 074750798] [facility] Scheduled Test 2022-01-14 00:00:00 SHINGLES VACCINES (1 of 2) [code = SHINGLES VACCINES (1 of 2)] [facility] Future Scheduled Test 2022-01-14 00:00:00 Screening for malignant neoplasm of lung (procedure) [code = [id number]] [facility] Future Scheduled Test 2022-01-14 00:00:00 SHINGLES VACCINES (1 of 2) [code = SHINGLES VACCINES (1 of 2)] [facility] Future Scheduled Test 2022-01-14 00:00:00 Screening for malignant neoplasm of lung (procedure) [code = [id number]] [facility] Future Scheduled Test 2022-01-14 00:00:00 SHINGLES VACCINES (1 of 2) [code = SHINGLES VACCINES (1 of 2)] [facility] Future Scheduled Test 2022-01-14 00:00:00 Screening for malignant neoplasm of lung (procedure) [code = [id number]] [facility] Future Scheduled Test 2022-01-14 00:00:00 SHINGLES VACCINES (1 of 2) [code = SHINGLES VACCINES (1 of 2)] [facility] Future Scheduled Test 2022-01-14 00:00:00 Screening for malignant neoplasm of lung (procedure) [code = [id number]] [facility] Future Scheduled Test 2022-01-14 00:00:00 SHINGLES VACCINES (1 of 2) [code = SHINGLES VACCINES (1 of 2)] [facility] Future Scheduled Test 2022-01-14 00:00:00 Screening for malignant neoplasm of lung (procedure) [code = [id number]] [facility] Future Scheduled Test 2022-01-14 00:00:00 SHINGLES VACCINES (1 of 2) [code = SHINGLES VACCINES (1 of 2)] [facility] Future Scheduled Test 2022-01-14 00:00:00 Screening for malignant neoplasm of lung (procedure) [code = [id number]] [facility] Future Scheduled Test 2022-01-14 00:00:00 SHINGLES VACCINES (1 of 2) [code = SHINGLES VACCINES (1 of 2)] [facility] Future Scheduled Test 2022-01-14 00:00:00 Screening for malignant neoplasm of lung (procedure) [code = [id number]] [facility] Future Scheduled Test 2022-01-14 00:00:00 SHINGLES VACCINES (1 of 2) [code = SHINGLES VACCINES (1 of 2)] [facility] Future Scheduled Test 2022-01-14 00:00:00 Screening for malignant neoplasm of lung (procedure) [code = [id number]] [facility] Future Scheduled Test 2022-01-14 00:00:00 SHINGLES VACCINES (1 of 2) [code = SHINGLES VACCINES (1 of 2)] [facility] Future Scheduled Test 2022-01-14 00:00:00 SHINGLES VACCINES (1 of 2) [code = SHINGLES VACCINES (1 of 2)] [facility] Future Scheduled Test 2022-01-14 00:00:00 SHINGLES VACCINES (1 of 2) [code = SHINGLES VACCINES (1 of 2)] [facility] Future Scheduled Test 2022-01-14 00:00:00 Screening for malignant neoplasm of lung (procedure) [code = [id number]] [facility] Future Scheduled Test 2022-01-14 00:00:00 SHINGLES VACCINES (1 of 2) [code = SHINGLES VACCINES (1 of 2)] [facility] Future Scheduled Test 2022-01-14 00:00:00 Screening for malignant neoplasm of lung (procedure) [code = 735694943] [facility] Future Scheduled Test 2022-01-14 00:00:00 SHINGLES VACCINES (1 of 2) [code = SHINGLES VACCINES (1 of 2)] [facility] Future Scheduled Test 2022-01-14 00:00:00 Screening for malignant neoplasm of lung (procedure) [code = [id number]] [facility] Future Scheduled Test 2022-01-14 00:00:00 SHINGLES VACCINES (1 of 2) [code = SHINGLES VACCINES (1 of 2)] [facility] Future Scheduled Test 2022-01-14 00:00:00 Screening for malignant neoplasm of lung (procedure) [code = [id number]] [facility] Future Scheduled Test 2022-01-14 00:00:00 SHINGLES VACCINES (1 of 2) [code = SHINGLES VACCINES (1 of 2)] [facility] Future Scheduled Test 2022-01-14 00:00:00 Screening for malignant neoplasm of lung (procedure) [code = [id number]] [facility] Future Scheduled Test 2022-01-14 00:00:00 SHINGLES VACCINES (1 of 2) [code = SHINGLES VACCINES (1 of 2)] [facility] Future Scheduled Test 2022-01-14 00:00:00 Screening for malignant neoplasm of lung (procedure) [code = [id number]] [facility] Future Scheduled Test 2022-01-14 00:00:00 SHINGLES VACCINES (1 of 2) [code = SHINGLES VACCINES (1 of 2)] [facility] Future Scheduled Test 2022-01-14 00:00:00 Screening for malignant neoplasm of lung (procedure) [code = [id number]] [facility] Future Scheduled Test 2022-01-14 00:00:00 SHINGLES VACCINES (1 of 2) [code = SHINGLES VACCINES (1 of 2)] [facility] Future Scheduled Test 2013-12-15 00:00:00 PNEUMOCOCCAL VACCINE 0-64 YRS (2 - PCV) [code = PNEUMOCOCCAL VACCINE 0-64 YRS (2 - PCV)] [facility] Future Scheduled Test 2013-12-15 00:00:00 PNEUMOCOCCAL VACCINE 0-64 YRS (2 - PCV) [code = PNEUMOCOCCAL VACCINE 0-64 YRS (2 - PCV)] [facility] Future Scheduled Test 2013-12-15 00:00:00 PNEUMOCOCCAL VACCINE 0-64 YRS (2 - PCV) [code = PNEUMOCOCCAL VACCINE 0-64 YRS (2 - PCV)] [facility] Future Scheduled Test 2013-12-15 00:00:00 PNEUMOCOCCAL VACCINE 0-64 YRS (2 - PCV) [code = PNEUMOCOCCAL VACCINE 0-64 YRS (2 - PCV)] [facility] Future Scheduled Test 2013-12-15 00:00:00 Pneumococcal Vaccine: 0-64 Years (2 - PCV) [code = Pneumococcal Vaccine: 0-64 Years (2 - PCV)] [facility] Future Scheduled Test 2013-12-15 00:00:00 Pneumococcal Vaccine: 0-64 Years (2 - PCV) [code = Pneumococcal Vaccine: 0-64 Years (2 - PCV)] [facility] Future Scheduled Test 2013-12-15 00:00:00 Pneumococcal Vaccine: 0-64 Years (2 - PCV) [code = Pneumococcal Vaccine: 0-64 Years (2 - PCV)] [facility] Future Scheduled Test 2013-12-15 00:00:00 Pneumococcal Vaccine: 0-64 Years (2 - PCV) [code = Pneumococcal Vaccine: 0-64 Years (2 - PCV)] [facility] Future Scheduled Test 2013-12-15 00:00:00 Pneumococcal Vaccine: 0-64 Years (2 - PCV) [code = Pneumococcal Vaccine: 0-64 Years (2 - PCV)] [facility] Future Scheduled Test 2013-12-15 00:00:00 Pneumococcal Vaccine: 0-64 Years (2 - PCV) [code = Pneumococcal Vaccine: 0-64 Years (2 - PCV)] [facility] Future Scheduled Test 2013-12-15 00:00:00 Pneumococcal Vaccine: 0-64 Years (2 - PCV) [code = Pneumococcal Vaccine: 0-64 Years (2 - PCV)] [facility] Future Scheduled Test 2013-12-15 00:00:00 Pneumococcal Vaccine: 0-64 Years (2 - PCV) [code = Pneumococcal Vaccine: 0-64 Years (2 - PCV)] [facility] Future Scheduled Test 2013-12-15 00:00:00 Pneumococcal Vaccine: 0-64 Years (2 - PCV) [code = Pneumococcal Vaccine: 0-64 Years (2 - PCV)] [facility] Future Scheduled Test 2013-12-15 00:00:00 Pneumococcal Vaccine: 0-64 Years (2 - PCV) [code = Pneumococcal Vaccine: 0-64 Years (2 - PCV)] [facility] Future Scheduled Test 2013-12-15 00:00:00 Pneumococcal Vaccine: 0-64 Years (2 - PCV) [code = Pneumococcal Vaccine: 0-64 Years (2 - PCV)] [facility] Future Scheduled Test 2013-12-15 00:00:00 Pneumococcal Vaccine: 0-64 Years (2 - PCV) [code = Pneumococcal Vaccine: 0-64 Years (2 - PCV)] [facility] Future Scheduled Test 2013-12-15 00:00:00 Pneumococcal Vaccine: 0-64 Years (2 - PCV) [code = Pneumococcal Vaccine: 0-64 Years (2 - PCV)] [facility] Future Scheduled Test 2013-12-15 00:00:00 Pneumococcal Vaccine: 0-64 Years (2 - PCV) [code = Pneumococcal Vaccine: 0-64 Years (2 - PCV)] [facility] Future Scheduled Test 2013-12-15 00:00:00 Pneumococcal Vaccine: 0-64 Years (2 - PCV) [code = Pneumococcal Vaccine: 0-64 Years (2 - PCV)] [facility] Future Scheduled Test 2013-12-15 00:00:00 Pneumococcal Vaccine: 0-64 Years (2 - PCV) [code = Pneumococcal Vaccine: 0-64 Years (2 - PCV)] [facility] Future Scheduled Test 2013-12-15 00:00:00 Pneumococcal Vaccine: 0-64 Years (2 - PCV) [code = Pneumococcal Vaccine: 0-64 Years (2 - PCV)] [facility] Future Scheduled Test 2013-12-15 00:00:00 Pneumococcal Vaccine: 0-64 Years (2 - PCV) [code = Pneumococcal Vaccine: 0-64 Years (2 - PCV)] [facility] Future Scheduled Test 2013-12-15 00:00:00 Pneumococcal Vaccine: 0-64 Years (2 - PCV) [code = Pneumococcal Vaccine: 0-64 Years (2 - PCV)] [facility] Future Scheduled Test 2013-12-15 00:00:00 Pneumococcal Vaccine: 0-64 Years (2 - PCV) [code = Pneumococcal Vaccine: 0-64 Years (2 - PCV)] [facility] Future Scheduled Test 2013-12-15 00:00:00 Pneumococcal Vaccine: 0-64 Years (2 of 2 - PCV) [code = Pneumococcal Vaccine: 0-64 Years (2 of 2 - PCV)] [facility] Future Scheduled Test 2013-12-15 00:00:00 Pneumococcal Vaccine: 0-64 Years (2 of 2 - PCV) [code = Pneumococcal Vaccine: 0-64 Years (2 of 2 - PCV)] [facility] Future Scheduled Test 2013-12-15 00:00:00 Pneumococcal Vaccine: 0-64 Years (2 of 2 - PCV) [code = Pneumococcal Vaccine: 0-64 Years (2 of 2 - PCV)] [facility] Future Scheduled Test 2013-12-15 00:00:00 Pneumococcal Vaccine: 0-64 Years (2 of 2 - PCV) [code = Pneumococcal Vaccine: 0-64 Years (2 of 2 - PCV)] [facility] Future Scheduled Test 2013-12-15 00:00:00 Pneumococcal Vaccine: 0-64 Years (2 of 2 - PCV) [code = Pneumococcal Vaccine: 0-64 Years (2 of 2 - PCV)] [facility] Future Scheduled Test 2013-12-15 00:00:00 Pneumococcal Vaccine: 0-64 Years (2 of 2 - PCV) [code = Pneumococcal Vaccine: 0-64 Years (2 of 2 - PCV)] [facility] Future Scheduled Test 2013-12-15 00:00:00 Pneumococcal Vaccine: 0-64 Years (2 of 2 - PCV) [code = Pneumococcal Vaccine: 0-64 Years (2 of 2 - PCV)] [facility] Future Scheduled Test 2013-12-15 00:00:00 Pneumococcal Vaccine: 0-64 Years (2 of 2 - PCV) [code = Pneumococcal Vaccine: 0-64 Years (2 of 2 - PCV)] [facility] Future Scheduled Test 2013-12-15 00:00:00 Pneumococcal Vaccine: 0-64 Years (2 of 2 - PCV) [code = Pneumococcal Vaccine: 0-64 Years (2 of 2 - PCV)] [facility] Future Scheduled Test 2013-12-15 00:00:00 Pneumococcal Vaccine: 0-64 Years (2 of 2 - PCV) [code = Pneumococcal Vaccine: 0-64 Years (2 of 2 - PCV)] [facility] Future Scheduled Test 2013-12-15 00:00:00 Pneumococcal Vaccine: 0-64 Years (2 of 2 - PCV) [code = Pneumococcal Vaccine: 0-64 Years (2 of 2 - PCV)] [facility] Future Scheduled Test 2013-12-15 00:00:00 Pneumococcal Vaccine: 0-64 Years (2 of 2 - PCV) [code = Pneumococcal Vaccine: 0-64 Years (2 of 2 - PCV)] [facility] Future Scheduled Test 2013-12-15 00:00:00 Pneumococcal Vaccine: 0-64 Years (2 of 2 - PCV) [code = Pneumococcal Vaccine: 0-64 Years (2 of 2 - PCV)] [facility] Future Scheduled Test 2013-12-15 00:00:00 Pneumococcal Vaccine: 0-64 Years (2 of 2 - PCV) [code = Pneumococcal Vaccine: 0-64 Years (2 of 2 - PCV)] [facility] Future Scheduled Test 2013-12-15 00:00:00 Pneumococcal Vaccine: 0-64 Years (2 of 2 - PCV) [code = Pneumococcal Vaccine: 0-64 Years (2 of 2 - PCV)] [facility] Future Scheduled Test 2013-12-15 00:00:00 Pneumococcal Vaccine: 0-64 Years (2 of 2 - PCV) [code = Pneumococcal Vaccine: 0-64 Years (2 of 2 - PCV)] [facility] Future Scheduled Test 2013-12-15 00:00:00 Pneumococcal Vaccine: 0-64 Years (2 of 2 - PCV) [code = Pneumococcal Vaccine: 0-64 Years (2 of 2 - PCV)] [facility] Future Scheduled Test 2013-12-15 00:00:00 Pneumococcal Vaccine: 0-64 Years (2 of 2 - PCV) [code = Pneumococcal Vaccine: 0-64 Years (2 of 2 - PCV)] [facility] Future Scheduled Test 2013-12-15 00:00:00 Pneumococcal Vaccine: 0-64 Years (2 of 2 - PCV) [code = Pneumococcal Vaccine: 0-64 Years (2 of 2 - PCV)] [facility] Future Scheduled Test 2013-12-15 00:00:00 Pneumococcal Vaccine: 0-64 Years (2 - PCV) [code = Pneumococcal Vaccine: 0-64 Years (2 - PCV)] [facility] Future Scheduled Test 2013-12-15 00:00:00 Pneumococcal Vaccine: 0-64 Years (2 - PCV) [code = Pneumococcal Vaccine: 0-64 Years (2 - PCV)] [facility] Future Scheduled Test 2013-12-15 00:00:00 Pneumococcal Vaccine: 0-64 Years (2 - PCV) [code = Pneumococcal Vaccine: 0-64 Years (2 - PCV)] [facility] Future Scheduled Test 1993-01-14 00:00:00 Screening for malignant neoplasm of cervix (procedure) [code = [id number]] [facility] Future Scheduled Test 1993-01-14 00:00:00 Screening for malignant neoplasm of cervix (procedure) [code = [id number]] [facility] Future Scheduled Test 1993-01-14 00:00:00 Screening for malignant neoplasm of cervix (procedure) [code = 842295200] [facility] Future Scheduled Test 1993-01-14 00:00:00 Screening for malignant neoplasm of cervix (procedure) [code = 850119026] [facility] Future Scheduled Test 1993-01-14 00:00:00 Screening for malignant neoplasm of cervix (procedure) [code = 291099585] [facility] Future Scheduled Test 1993-01-14 00:00:00 Screening for malignant neoplasm of cervix (procedure) [code = [id number]] [facility] Future Scheduled Test 1993-01-14 00:00:00 Screening for malignant neoplasm of cervix (procedure) [code = 563089276] [facility] Future Scheduled Test 1993-01-14 00:00:00 Screening for malignant neoplasm of cervix (procedure) [code = 696033114] [facility] Future Scheduled Test 1993-01-14 00:00:00 Screening for malignant neoplasm of cervix (procedure) [code = 696799378] [facility] Future Scheduled Test 1993-01-14 00:00:00 Screening for malignant neoplasm of cervix (procedure) [code = 718748400] [facility] Future Scheduled Test 1993-01-14 00:00:00 Screening for malignant neoplasm of cervix (procedure) [code = 031861402] [facility] Future Scheduled Test 1993-01-14 00:00:00 Screening for malignant neoplasm of cervix (procedure) [code = 815088887] [facility] Future Scheduled Test 1993-01-14 00:00:00 Screening for malignant neoplasm of cervix (procedure) [code = 668985020] [facility] Future Scheduled Test 1993-01-14 00:00:00 Screening for malignant neoplasm of cervix (procedure) [code = [id number]] [facility] Future Scheduled Test 1993-01-14 00:00:00 Screening for malignant neoplasm of cervix (procedure) [code = 953733567] [facility] Future Scheduled Test 1993-01-14 00:00:00 Screening for malignant neoplasm of cervix (procedure) [code = 053494175] [facility] Future Scheduled Test 1993-01-14 00:00:00 Screening for malignant neoplasm of cervix (procedure) [code = 167855805] [facility] Future Scheduled Test 1993-01-14 00:00:00 Screening for malignant neoplasm of cervix (procedure) [code = 459042200] [facility] Future Scheduled Test 1993-01-14 00:00:00 Screening for malignant neoplasm of cervix (procedure) [code = 779859569] [facility] Future Scheduled Test 1993-01-14 00:00:00 Screening for malignant neoplasm of cervix (procedure) [code = 650545011] [facility] Future Scheduled Test 1993-01-14 00:00:00 Screening for malignant neoplasm of cervix (procedure) [code = 672212618] [facility] Future Scheduled Test 1993-01-14 00:00:00 Screening for malignant neoplasm of cervix (procedure) [code = 555679039] [facility] Future Scheduled Test 1993-01-14 00:00:00 Screening for malignant neoplasm of cervix (procedure) [code = 330462501] [facility] Future Scheduled Test 1993-01-14 00:00:00 Screening for malignant neoplasm of cervix (procedure) [code = 402352520] [facility] Future Scheduled Test 1993-01-14 00:00:00 Screening for malignant neoplasm of cervix (procedure) [code = 338885562] [facility] Future Scheduled Test 1993-01-14 00:00:00 Screening for malignant neoplasm of cervix (procedure) [code = 611952729] [facility] Future Scheduled Test 1993-01-14 00:00:00 Screening for malignant neoplasm of cervix (procedure) [code = 292590564] [facility] Future Scheduled Test 1993-01-14 00:00:00 Screening for malignant neoplasm of cervix (procedure) [code = 629236848] [facility] Future Scheduled Test 1993-01-14 00:00:00 Screening for malignant neoplasm of cervix (procedure) [code = 421225010] [facility] Future Scheduled Test 1993-01-14 00:00:00 Screening for malignant neoplasm of cervix (procedure) [code = 615902585] [facility] Future Scheduled Test 1993-01-14 00:00:00 Screening for malignant neoplasm of cervix (procedure) [code = 930736370] [facility] Future Scheduled Test 1993-01-14 00:00:00 Screening for malignant neoplasm of cervix (procedure) [code = 455476173] [facility] Future Scheduled Test 1993-01-14 00:00:00 Screening for malignant neoplasm of cervix (procedure) [code = 054174073] [facility] Future Scheduled Test 1993-01-14 00:00:00 Screening for malignant neoplasm of cervix (procedure) [code = 309042136] [facility] Future Scheduled Test 1993-01-14 00:00:00 Screening for malignant neoplasm of cervix (procedure) [code = 117412407] [facility] Future Scheduled Test 1993-01-14 00:00:00 Screening for malignant neoplasm of cervix (procedure) [code = 436323432] [facility] Future Scheduled Test 1993-01-14 00:00:00 Screening for malignant neoplasm of cervix (procedure) [code = 140821331] [facility] Future Scheduled Test 1993-01-14 00:00:00 Screening for malignant neoplasm of cervix (procedure) [code = 604572785] [facility] Future Scheduled Test 1993-01-14 00:00:00 Screening for malignant neoplasm of cervix (procedure) [code = 718139457] [facility] Future Scheduled Test 1993-01-14 00:00:00 Screening for malignant neoplasm of cervix (procedure) [code = 652734834] [facility] Future Scheduled Test 1993-01-14 00:00:00 Screening for malignant neoplasm of cervix (procedure) [code = 876709315] [facility] Future Scheduled Test 1993-01-14 00:00:00 Screening for malignant neoplasm of cervix (procedure) [code = 605912775] [facility] Future Scheduled Test 1993-01-14 00:00:00 Screening for malignant neoplasm of cervix (procedure) [code = [id number]] [facility] Future Scheduled Test 1993-01-14 00:00:00 Screening for malignant neoplasm of cervix (procedure) [code = 761028857] [facility] Future Scheduled Test 1993-01-14 00:00:00 Screening for malignant neoplasm of cervix (procedure) [code = 841638354] [facility] Future Scheduled Test 1993-01-14 00:00:00 Screening for malignant neoplasm of cervix (procedure) [code = 901317371] [facility] Future Scheduled Test 1993-01-14 00:00:00 Screening for malignant neoplasm of cervix (procedure) [code = 171433820] [facility] Future Scheduled Test 1993-01-14 00:00:00 Screening for malignant neoplasm of cervix (procedure) [code = 760292702] [facility] Future Scheduled Test 1993-01-14 00:00:00 Screening for malignant neoplasm of cervix (procedure) [code = [id number]] [facility] Future Scheduled Test 1993-01-14 00:00:00 Screening for malignant neoplasm of cervix (procedure) [code = 466881567] [facility] Future Scheduled Test 1993-01-14 00:00:00 Screening for malignant neoplasm of cervix (procedure) [code = 442323894] [facility] Future Scheduled Test 1993-01-14 00:00:00 Screening for malignant neoplasm of cervix (procedure) [code = 675719755] [facility] Future Scheduled Test 1993-01-14 00:00:00 Screening for malignant neoplasm of cervix (procedure) [code = 540312985] [facility] Future Scheduled Test 1993-01-14 00:00:00 Screening for malignant neoplasm of cervix (procedure) [code = 380493365] [facility] Future Scheduled Test 1993-01-14 00:00:00 Screening for malignant neoplasm of cervix (procedure) [code = 236900275] [facility] Future Scheduled Test 1993-01-14 00:00:00 Screening for malignant neoplasm of cervix (procedure) [code = 650726015] [facility] Future Scheduled Test 1993-01-14 00:00:00 Screening for malignant neoplasm of cervix (procedure) [code = 570898038] [facility] Future Scheduled Test 1993-01-14 00:00:00 Screening for malignant neoplasm of cervix (procedure) [code = 448832306] [facility] Future Scheduled Test 1993-01-14 00:00:00 Screening for malignant neoplasm of cervix (procedure) [code = 573369497] [facility] Future Scheduled Test 1993-01-14 00:00:00 Screening for malignant neoplasm of cervix (procedure) [code = 261892476] [facility] Future Scheduled Test 1993-01-14 00:00:00 Screening for malignant neoplasm of cervix (procedure) [code = 457791454] [facility] Future Scheduled Test 1993-01-14 00:00:00 Screening for malignant neoplasm of cervix (procedure) [code = 620523650] [facility] Future Scheduled Test 1993-01-14 00:00:00 Screening for malignant neoplasm of cervix (procedure) [code = 693975541] [facility] Future Scheduled Test 1993-01-14 00:00:00 Screening for malignant neoplasm of cervix (procedure) [code = 334925427] [facility] Future Scheduled Test 1993-01-14 00:00:00 Screening for malignant neoplasm of cervix (procedure) [code = [id number]] [facility] Future Scheduled Test 1993-01-14 00:00:00 Screening for malignant neoplasm of cervix (procedure) [code = 802349736] [facility] Future Scheduled Test 1993-01-14 00:00:00 Screening for malignant neoplasm of cervix (procedure) [code = 417485734] [facility] Future Scheduled Test 1993-01-14 00:00:00 Screening for malignant neoplasm of cervix (procedure) [code = 857731739] [facility] Future Scheduled Test 1993-01-14 00:00:00 Screening for malignant neoplasm of cervix (procedure) [code = 308090250] [facility] Future Scheduled Test 1993-01-14 00:00:00 Screening for malignant neoplasm of cervix (procedure) [code = 967283818] [facility] Future Scheduled Test 1991-01-14 00:00:00 DTAP/TDAP/TD VACCINES (1 - Tdap) [code = DTAP/TDAP/TD VACCINES (1 - Tdap)] [facility] Future Scheduled Test 1991-01-14 00:00:00 DTAP/TDAP/TD VACCINES (1 - Tdap) [code = DTAP/TDAP/TD VACCINES (1 - Tdap)] [facility] Future Scheduled Test 1991-01-14 00:00:00 DTAP/TDAP/TD VACCINES (1 - Tdap) [code = DTAP/TDAP/TD VACCINES (1 - Tdap)] [facility] Future Scheduled Test 1991-01-14 00:00:00 DTAP/TDAP/TD VACCINES (1 - Tdap) [code = DTAP/TDAP/TD VACCINES (1 - Tdap)] [facility] Future Scheduled Test 1991-01-14 00:00:00 DTAP/TDAP/TD VACCINES (1 - Tdap) [code = DTAP/TDAP/TD VACCINES (1 - Tdap)] [facility] Future Scheduled Test 1991-01-14 00:00:00 DTAP/TDAP/TD VACCINES (1 - Tdap) [code = DTAP/TDAP/TD VACCINES (1 - Tdap)] [facility] Future Scheduled Test 1991-01-14 00:00:00 DTAP/TDAP/TD VACCINES (1 - Tdap) [code = DTAP/TDAP/TD VACCINES (1 - Tdap)] [facility] Future Scheduled Test 1991-01-14 00:00:00 DTAP/TDAP/TD VACCINES (1 - Tdap) [code = DTAP/TDAP/TD VACCINES (1 - Tdap)] [facility] Future Scheduled Test 1991-01-14 00:00:00 DTAP/TDAP/TD VACCINES (1 - Tdap) [code = DTAP/TDAP/TD VACCINES (1 - Tdap)] [facility] Future Scheduled Test 1991-01-14 00:00:00 DTAP/TDAP/TD VACCINES (1 - Tdap) [code = DTAP/TDAP/TD VACCINES (1 - Tdap)] [facility] Future Scheduled Test 1991-01-14 00:00:00 DTAP/TDAP/TD VACCINES (1 - Tdap) [code = DTAP/TDAP/TD VACCINES (1 - Tdap)] [facility] Future Scheduled Test 1991-01-14 00:00:00 DTAP/TDAP/TD VACCINES (1 - Tdap) [code = DTAP/TDAP/TD VACCINES (1 - Tdap)] [facility] Future Scheduled Test 1991-01-14 00:00:00 DTAP/TDAP/TD VACCINES (1 - Tdap) [code = DTAP/TDAP/TD VACCINES (1 - Tdap)] [facility] Future Scheduled Test 1991-01-14 00:00:00 DTAP/TDAP/TD VACCINES (1 - Tdap) [code = DTAP/TDAP/TD VACCINES (1 - Tdap)] [facility] Future Scheduled Test 1991-01-14 00:00:00 DTAP/TDAP/TD VACCINES (1 - Tdap) [code = DTAP/TDAP/TD VACCINES (1 - Tdap)] [facility] Future Scheduled Test 1991-01-14 00:00:00 DTAP/TDAP/TD VACCINES (1 - Tdap) [code = DTAP/TDAP/TD VACCINES (1 - Tdap)] [facility] Future Scheduled Test 1991-01-14 00:00:00 DTAP/TDAP/TD VACCINES (1 - Tdap) [code = DTAP/TDAP/TD VACCINES (1 - Tdap)] [facility] Future Scheduled Test 1991-01-14 00:00:00 DTAP/TDAP/TD VACCINES (1 - Tdap) [code = DTAP/TDAP/TD VACCINES (1 - Tdap)] [facility] Future Scheduled Test 1991-01-14 00:00:00 DTAP/TDAP/TD VACCINES (1 - Tdap) [code = DTAP/TDAP/TD VACCINES (1 - Tdap)] [facility] Future Scheduled Test 1991-01-14 00:00:00 DTAP/TDAP/TD VACCINES (1 - Tdap) [code = DTAP/TDAP/TD VACCINES (1 - Tdap)] [facility] Future Scheduled Test 1991-01-14 00:00:00 DTAP/TDAP/TD VACCINES (1 - Tdap) [code = DTAP/TDAP/TD VACCINES (1 - Tdap)] [facility] Future Scheduled Test 1991-01-14 00:00:00 DTAP/TDAP/TD VACCINES (1 - Tdap) [code = DTAP/TDAP/TD VACCINES (1 - Tdap)] [facility] Future Scheduled Test 1991-01-14 00:00:00 DTAP/TDAP/TD VACCINES (1 - Tdap) [code = DTAP/TDAP/TD VACCINES (1 - Tdap)] [facility] Future Scheduled Test 1991-01-14 00:00:00 DTAP/TDAP/TD VACCINES (1 - Tdap) [code = DTAP/TDAP/TD VACCINES (1 - Tdap)] [facility] Future Scheduled Test 1991-01-14 00:00:00 DTAP/TDAP/TD VACCINES (1 - Tdap) [code = DTAP/TDAP/TD VACCINES (1 - Tdap)] [facility] Future Scheduled Test 1991-01-14 00:00:00 DTAP/TDAP/TD VACCINES (1 - Tdap) [code = DTAP/TDAP/TD VACCINES (1 - Tdap)] [facility] Future Scheduled Test 1991-01-14 00:00:00 DTAP/TDAP/TD VACCINES (1 - Tdap) [code = DTAP/TDAP/TD VACCINES (1 - Tdap)] [facility] Future Scheduled Test 1991-01-14 00:00:00 DTAP/TDAP/TD VACCINES (1 - Tdap) [code = DTAP/TDAP/TD VACCINES (1 - Tdap)] [facility] Future Scheduled Test 1991-01-14 00:00:00 DTAP/TDAP/TD VACCINES (1 - Tdap) [code = DTAP/TDAP/TD VACCINES (1 - Tdap)] [facility] Future Scheduled Test 1991-01-14 00:00:00 DTAP/TDAP/TD VACCINES (1 - Tdap) [code = DTAP/TDAP/TD VACCINES (1 - Tdap)] [facility] Future Scheduled Test 1991-01-14 00:00:00 DTAP/TDAP/TD VACCINES (1 - Tdap) [code = DTAP/TDAP/TD VACCINES (1 - Tdap)] [facility] Future Scheduled Test 1991-01-14 00:00:00 DTAP/TDAP/TD VACCINES (1 - Tdap) [code = DTAP/TDAP/TD VACCINES (1 - Tdap)] [facility] Future Scheduled Test 1991-01-14 00:00:00 DTAP/TDAP/TD VACCINES (1 - Tdap) [code = DTAP/TDAP/TD VACCINES (1 - Tdap)] [facility] Future Scheduled Test 1991-01-14 00:00:00 DTAP/TDAP/TD VACCINES (1 - Tdap) [code = DTAP/TDAP/TD VACCINES (1 - Tdap)] [facility] Future Scheduled Test 1991-01-14 00:00:00 DTAP/TDAP/TD VACCINES (1 - Tdap) [code = DTAP/TDAP/TD VACCINES (1 - Tdap)] [facility] Future Scheduled Test 1991-01-14 00:00:00 DTAP/TDAP/TD VACCINES (1 - Tdap) [code = DTAP/TDAP/TD VACCINES (1 - Tdap)] [facility] Future Scheduled Test 1991-01-14 00:00:00 DTAP/TDAP/TD VACCINES (1 - Tdap) [code = DTAP/TDAP/TD VACCINES (1 - Tdap)] [facility] Future Scheduled Test 1991-01-14 00:00:00 DTAP/TDAP/TD VACCINES (1 - Tdap) [code = DTAP/TDAP/TD VACCINES (1 - Tdap)] [facility] Future Scheduled Test 1991-01-14 00:00:00 DTAP/TDAP/TD VACCINES (1 - Tdap) [code = DTAP/TDAP/TD VACCINES (1 - Tdap)] [facility] Future Scheduled Test 1991-01-14 00:00:00 DTAP/TDAP/TD VACCINES (1 - Tdap) [code = DTAP/TDAP/TD VACCINES (1 - Tdap)] [facility] Future Scheduled Test 1991-01-14 00:00:00 DTAP/TDAP/TD VACCINES (1 - Tdap) [code = DTAP/TDAP/TD VACCINES (1 - Tdap)] [facility] Future Scheduled Test 1991-01-14 00:00:00 DTAP/TDAP/TD VACCINES (1 - Tdap) [code = DTAP/TDAP/TD VACCINES (1 - Tdap)] [facility] Future Scheduled Test 1991-01-14 00:00:00 DTAP/TDAP/TD VACCINES (1 - Tdap) [code = DTAP/TDAP/TD VACCINES (1 - Tdap)] [facility] Future Scheduled Test 1991-01-14 00:00:00 DTAP/TDAP/TD VACCINES (1 - Tdap) [code = DTAP/TDAP/TD VACCINES (1 - Tdap)] [facility] Future Scheduled Test 1991-01-14 00:00:00 DTAP/TDAP/TD VACCINES (1 - Tdap) [code = DTAP/TDAP/TD VACCINES (1 - Tdap)] [facility] Future Scheduled Test 1991-01-14 00:00:00 DTAP/TDAP/TD VACCINES (1 - Tdap) [code = DTAP/TDAP/TD VACCINES (1 - Tdap)] [facility] Future Scheduled Test 1991-01-14 00:00:00 DTAP/TDAP/TD VACCINES (1 - Tdap) [code = DTAP/TDAP/TD VACCINES (1 - Tdap)] [facility] Future Scheduled Test 1991-01-14 00:00:00 DTAP/TDAP/TD VACCINES (1 - Tdap) [code = DTAP/TDAP/TD VACCINES (1 - Tdap)] [facility] Future Scheduled Test 1991-01-14 00:00:00 DTAP/TDAP/TD VACCINES (1 - Tdap) [code = DTAP/TDAP/TD VACCINES (1 - Tdap)] [facility] Future Scheduled Test 1991-01-14 00:00:00 DTAP/TDAP/TD VACCINES (1 - Tdap) [code = DTAP/TDAP/TD VACCINES (1 - Tdap)] [facility] Future Scheduled Test 1991-01-14 00:00:00 DTAP/TDAP/TD VACCINES (1 - Tdap) [code = DTAP/TDAP/TD VACCINES (1 - Tdap)] [facility] Future Scheduled Test 1991-01-14 00:00:00 DTAP/TDAP/TD VACCINES (1 - Tdap) [code = DTAP/TDAP/TD VACCINES (1 - Tdap)] [facility] Future Scheduled Test 1991-01-14 00:00:00 DTAP/TDAP/TD VACCINES (1 - Tdap) [code = DTAP/TDAP/TD VACCINES (1 - Tdap)] [facility] Future Scheduled Test 1991-01-14 00:00:00 DTAP/TDAP/TD VACCINES (1 - Tdap) [code = DTAP/TDAP/TD VACCINES (1 - Tdap)] [facility] Future Scheduled Test 1991-01-14 00:00:00 DTAP/TDAP/TD VACCINES (1 - Tdap) [code = DTAP/TDAP/TD VACCINES (1 - Tdap)] [facility] Future Scheduled Test 1991-01-14 00:00:00 DTAP/TDAP/TD VACCINES (1 - Tdap) [code = DTAP/TDAP/TD VACCINES (1 - Tdap)] [facility] Future Scheduled Test 1991-01-14 00:00:00 DTAP/TDAP/TD VACCINES (1 - Tdap) [code = DTAP/TDAP/TD VACCINES (1 - Tdap)] [facility] Future Scheduled Test 1991-01-14 00:00:00 DTAP/TDAP/TD VACCINES (1 - Tdap) [code = DTAP/TDAP/TD VACCINES (1 - Tdap)] [facility] Future Scheduled Test 1991-01-14 00:00:00 DTAP/TDAP/TD VACCINES (1 - Tdap) [code = DTAP/TDAP/TD VACCINES (1 - Tdap)] [facility] Future Scheduled Test 1991-01-14 00:00:00 DTAP/TDAP/TD VACCINES (1 - Tdap) [code = DTAP/TDAP/TD VACCINES (1 - Tdap)] [facility] Future Scheduled Test 1991-01-14 00:00:00 DTAP/TDAP/TD VACCINES (1 - Tdap) [code = DTAP/TDAP/TD VACCINES (1 - Tdap)] [facility] Future Scheduled Test 1991-01-14 00:00:00 DTAP/TDAP/TD VACCINES (1 - Tdap) [code = DTAP/TDAP/TD VACCINES (1 - Tdap)] [facility] Future Scheduled Test 1991-01-14 00:00:00 DTAP/TDAP/TD VACCINES (1 - Tdap) [code = DTAP/TDAP/TD VACCINES (1 - Tdap)] [facility] Future Scheduled Test 1991-01-14 00:00:00 DTAP/TDAP/TD VACCINES (1 - Tdap) [code = DTAP/TDAP/TD VACCINES (1 - Tdap)] [facility] Future Scheduled Test 1991-01-14 00:00:00 DTAP/TDAP/TD VACCINES (1 - Tdap) [code = DTAP/TDAP/TD VACCINES (1 - Tdap)] [facility] Future Scheduled Test 1991-01-14 00:00:00 DTAP/TDAP/TD VACCINES (1 - Tdap) [code = DTAP/TDAP/TD VACCINES (1 - Tdap)] [facility] Future Scheduled Test 1991-01-14 00:00:00 DTAP/TDAP/TD VACCINES (1 - Tdap) [code = DTAP/TDAP/TD VACCINES (1 - Tdap)] [facility] Future Scheduled Test 1991-01-14 00:00:00 DTAP/TDAP/TD VACCINES (1 - Tdap) [code = DTAP/TDAP/TD VACCINES (1 - Tdap)] [facility] Future Scheduled Test 1991-01-14 00:00:00 DTAP/TDAP/TD VACCINES (1 - Tdap) [code = DTAP/TDAP/TD VACCINES (1 - Tdap)] [facility] Future Scheduled Test 1991-01-14 00:00:00 DTAP/TDAP/TD VACCINES (1 - Tdap) [code = DTAP/TDAP/TD VACCINES (1 - Tdap)] [facility] Future Scheduled Test 1990-01-14 00:00:00 HEPATITIS C SCREENING [code = HEPATITIS C SCREENING] [facility] Future Scheduled Test 1990-01-14 00:00:00 HEPATITIS C SCREENING [code = HEPATITIS C SCREENING] [facility] Future Scheduled Test 1990-01-14 00:00:00 HEPATITIS C SCREENING [code = HEPATITIS C SCREENING] [facility] Future Scheduled Test 1990-01-14 00:00:00 HEPATITIS C SCREENING [code = HEPATITIS C SCREENING] [facility] Future Scheduled Test 1990-01-14 00:00:00 HEPATITIS C SCREENING [code = HEPATITIS C SCREENING] [facility] Future Scheduled Test 1990-01-14 00:00:00 HEPATITIS C SCREENING [code = HEPATITIS C SCREENING] [facility] Future Scheduled Test 1990-01-14 00:00:00 HEPATITIS C SCREENING [code = HEPATITIS C SCREENING] [facility] Future Scheduled Test 1990-01-14 00:00:00 HEPATITIS C SCREENING [code = HEPATITIS C SCREENING] [facility] Future Scheduled Test 1990-01-14 00:00:00 HEPATITIS C SCREENING [code = HEPATITIS C SCREENING] [facility] Future Scheduled Test 1990-01-14 00:00:00 HEPATITIS C SCREENING [code = HEPATITIS C SCREENING] [facility] Future Scheduled Test 1990-01-14 00:00:00 HEPATITIS C SCREENING [code = HEPATITIS C SCREENING] [facility] Future Scheduled Test 1990-01-14 00:00:00 HEPATITIS C SCREENING [code = HEPATITIS C SCREENING] [facility] Future Scheduled Test 1990-01-14 00:00:00 HEPATITIS C SCREENING [code = HEPATITIS C SCREENING] [facility] Future Scheduled Test 1990-01-14 00:00:00 HEPATITIS C SCREENING [code = HEPATITIS C SCREENING] [facility] Future Scheduled Test 1990-01-14 00:00:00 HEPATITIS C SCREENING [code = HEPATITIS C SCREENING] [facility] Future Scheduled Test 1990-01-14 00:00:00 HEPATITIS C SCREENING [code = HEPATITIS C SCREENING] [facility] Future Scheduled Test 1990-01-14 00:00:00 HEPATITIS C SCREENING [code = HEPATITIS C SCREENING] [facility] Future Scheduled Test 1990-01-14 00:00:00 HEPATITIS C SCREENING [code = HEPATITIS C SCREENING] [facility] Future Scheduled Test 1990-01-14 00:00:00 HEPATITIS C SCREENING [code = HEPATITIS C SCREENING] [facility] Future Scheduled Test 1990-01-14 00:00:00 HEPATITIS C SCREENING [code = HEPATITIS C SCREENING] [facility] Future Scheduled Test 1990-01-14 00:00:00 HEPATITIS C SCREENING [code = HEPATITIS C SCREENING] [facility] Future Scheduled Test 1990-01-14 00:00:00 HEPATITIS C SCREENING [code = HEPATITIS C SCREENING] [facility] Future Scheduled Test 1990-01-14 00:00:00 HEPATITIS C SCREENING [code = HEPATITIS C SCREENING] [facility] Future Scheduled Test 1990-01-14 00:00:00 HEPATITIS C SCREENING [code = HEPATITIS C SCREENING] [facility] Future Scheduled Test 1990-01-14 00:00:00 HEPATITIS C SCREENING [code = HEPATITIS C SCREENING] [facility] Future Scheduled Test 1990-01-14 00:00:00 HEPATITIS C SCREENING [code = HEPATITIS C SCREENING] [facility] Future Scheduled Test 1990-01-14 00:00:00 HEPATITIS C SCREENING [code = HEPATITIS C SCREENING] [facility] Future Scheduled Test 1990-01-14 00:00:00 HEPATITIS C SCREENING [code = HEPATITIS C SCREENING] [facility] Future Scheduled Test 1990-01-14 00:00:00 HEPATITIS C SCREENING [code = HEPATITIS C SCREENING] [facility] Future Scheduled Test 1990-01-14 00:00:00 HEPATITIS C SCREENING [code = HEPATITIS C SCREENING] [facility] Future Scheduled Test 1990-01-14 00:00:00 HEPATITIS C SCREENING [code = HEPATITIS C SCREENING] [facility] Future Scheduled Test 1990-01-14 00:00:00 HEPATITIS C SCREENING [code = HEPATITIS C SCREENING] [facility] Future Scheduled Test 1990-01-14 00:00:00 HEPATITIS C SCREENING [code = HEPATITIS C SCREENING] [facility] Future Scheduled Test 1990-01-14 00:00:00 HEPATITIS C SCREENING [code = HEPATITIS C SCREENING] [facility] Future Scheduled Test 1990-01-14 00:00:00 HEPATITIS C SCREENING [code = HEPATITIS C SCREENING] [facility] Future Scheduled Test 1990-01-14 00:00:00 HEPATITIS C SCREENING [code = HEPATITIS C SCREENING] [facility] Future Scheduled Test 1990-01-14 00:00:00 HEPATITIS C SCREENING [code = HEPATITIS C SCREENING] [facility] Future Scheduled Test 1990-01-14 00:00:00 HEPATITIS C SCREENING [code = HEPATITIS C SCREENING] [facility] Future Scheduled Test 1990-01-14 00:00:00 HEPATITIS C SCREENING [code = HEPATITIS C SCREENING] [facility] Future Scheduled Test 1990-01-14 00:00:00 HEPATITIS C SCREENING [code = HEPATITIS C SCREENING] [facility] Future Scheduled Test 1990-01-14 00:00:00 HEPATITIS C SCREENING [code = HEPATITIS C SCREENING] [facility] Future Scheduled Test 1990-01-14 00:00:00 HEPATITIS C SCREENING [code = HEPATITIS C SCREENING] [facility] Future Scheduled Test 1990-01-14 00:00:00 HEPATITIS C SCREENING [code = HEPATITIS C SCREENING] [facility] Future Scheduled Test 1990-01-14 00:00:00 HEPATITIS C SCREENING [code = HEPATITIS C SCREENING] [facility] Future Scheduled Test 1990-01-14 00:00:00 HEPATITIS C SCREENING [code = HEPATITIS C SCREENING] [facility] Future Scheduled Test 1990-01-14 00:00:00 HEPATITIS C SCREENING [code = HEPATITIS C SCREENING] [facility] Future Scheduled Test 1990-01-14 00:00:00 HEPATITIS C SCREENING [code = HEPATITIS C SCREENING] [facility] Future Scheduled Test 1990-01-14 00:00:00 HEPATITIS C SCREENING [code = HEPATITIS C SCREENING] [facility] Future Scheduled Test 1990-01-14 00:00:00 HEPATITIS C SCREENING [code = HEPATITIS C SCREENING] [facility] Future Scheduled Test 1990-01-14 00:00:00 HEPATITIS C SCREENING [code = HEPATITIS C SCREENING] [facility] Future Scheduled Test 1990-01-14 00:00:00 HEPATITIS C SCREENING [code = HEPATITIS C SCREENING] [facility] Future Scheduled Test 1990-01-14 00:00:00 HEPATITIS C SCREENING [code = HEPATITIS C SCREENING] [facility] Future Scheduled Test 1990-01-14 00:00:00 HEPATITIS C SCREENING [code = HEPATITIS C SCREENING] [facility] Future Scheduled Test 1990-01-14 00:00:00 HEPATITIS C SCREENING [code = HEPATITIS C SCREENING] [facility] Future Scheduled Test 1990-01-14 00:00:00 HEPATITIS C SCREENING [code = HEPATITIS C SCREENING] [facility] Future Scheduled Test 1990-01-14 00:00:00 HEPATITIS C SCREENING [code = HEPATITIS C SCREENING] [facility] Future Scheduled Test 1990-01-14 00:00:00 HEPATITIS C SCREENING [code = HEPATITIS C SCREENING] [facility] Future Scheduled Test 1990-01-14 00:00:00 HEPATITIS C SCREENING [code = HEPATITIS C SCREENING] [facility] Future Scheduled Test 1990-01-14 00:00:00 HEPATITIS C SCREENING [code = HEPATITIS C SCREENING] [facility] Future Scheduled Test 1990-01-14 00:00:00 HEPATITIS C SCREENING [code = HEPATITIS C SCREENING] [facility] Future Scheduled Test 1990-01-14 00:00:00 HEPATITIS C SCREENING [code = HEPATITIS C SCREENING] [facility] Future Scheduled Test 1990-01-14 00:00:00 HEPATITIS C SCREENING [code = HEPATITIS C SCREENING] [facility] Future Scheduled Test 1990-01-14 00:00:00 HEPATITIS C SCREENING [code = HEPATITIS C SCREENING] [facility] Future Scheduled Test 1990-01-14 00:00:00 HEPATITIS C SCREENING [code = HEPATITIS C SCREENING] [facility] Future Scheduled Test 1990-01-14 00:00:00 HEPATITIS C SCREENING [code = HEPATITIS C SCREENING] [facility] Future Scheduled Test 1990-01-14 00:00:00 HEPATITIS C SCREENING [code = HEPATITIS C SCREENING] [facility] Future Scheduled Test 1990-01-14 00:00:00 HEPATITIS C SCREENING [code = HEPATITIS C SCREENING] [facility] Future Scheduled Test 1990-01-14 00:00:00 HEPATITIS C SCREENING [code = HEPATITIS C SCREENING] [facility] Future Scheduled Test 1990-01-14 00:00:00 HEPATITIS C SCREENING [code = HEPATITIS C SCREENING] [facility] Future Scheduled Test 1990-01-14 00:00:00 HEPATITIS C SCREENING [code = HEPATITIS C SCREENING] [facility] Future Scheduled Test 1987-01-14 00:00:00 Human immunodeficiency virus screening (procedure) [code = 880431614] [facility] Future Scheduled Test 1987-01-14 00:00:00 Human immunodeficiency virus screening (procedure) [code = [id number]] [facility] Future Scheduled Test 1984 00:00:00 Tobacco Cessation Counseling and Screening (12+) [code = Tobacco Cessation Counseling and Screening (12+)] [facility] Future Scheduled Test 1984 00:00:00 Tobacco Cessation Counseling and Screening (12+) [code = Tobacco Cessation Counseling and Screening (12+)] [facility] Future Scheduled Test 1984 00:00:00 Tobacco Cessation Counseling and Screening (12+) [code = Tobacco Cessation Counseling and Screening (12+)] [facility] Future Scheduled Test 1984 00:00:00 Tobacco Cessation Counseling and Screening (12+) [code = Tobacco Cessation Counseling and Screening (12+)] [facility] Future Scheduled Test 1984 00:00:00 Tobacco Cessation Counseling and Screening (12+) [code = Tobacco Cessation Counseling and Screening (12+)] [facility] Future Scheduled Test 1984 00:00:00 Tobacco Cessation Counseling and Screening (12+) [code = Tobacco Cessation Counseling and Screening (12+)] [facility] Future Scheduled Test 1984 00:00:00 Tobacco Cessation Counseling and Screening (12+) [code = Tobacco Cessation Counseling and Screening (12+)] [facility] Future Scheduled Test 1984 00:00:00 Tobacco Cessation Counseling and Screening (12+) [code = Tobacco Cessation Counseling and Screening (12+)] [facility] Scheduled Test 1984 00:00:00 Tobacco Cessation Counseling and Screening (12+) [code = Tobacco Cessation Counseling and Screening (12+)] [facility] Scheduled Test 1984 00:00:00 Tobacco Cessation Counseling and Screening (12+) [code = Tobacco Cessation Counseling and Screening (12+)] [facility] Future Scheduled Test 1984 00:00:00 Tobacco Cessation Counseling and Screening (12+) [code = Tobacco Cessation Counseling and Screening (12+)] [facility] Scheduled Test 1984 00:00:00 Tobacco Cessation Counseling and Screening (12+) [code = Tobacco Cessation Counseling and Screening (12+)] [facility] Future Scheduled Test 1984 00:00:00 Tobacco Cessation Counseling and Screening (12+) [code = Tobacco Cessation Counseling and Screening (12+)] [facility] Future Scheduled Test 1984 00:00:00 Tobacco Cessation Counseling and Screening (12+) [code = Tobacco Cessation Counseling and Screening (12+)] [facility] Future Scheduled Test 1984 00:00:00 Tobacco Cessation Counseling and Screening (12+) [code = Tobacco Cessation Counseling and Screening (12+)] [facility] Future Scheduled Test 1984 00:00:00 Tobacco Cessation Counseling and Screening (12+) [code = Tobacco Cessation Counseling and Screening (12+)] [facility] Future Scheduled Test 1984 00:00:00 Tobacco Cessation Counseling and Screening (12+) [code = Tobacco Cessation Counseling and Screening (12+)] [facility] Future Scheduled Test 1984 00:00:00 Tobacco Cessation Counseling and Screening (12+) [code = Tobacco Cessation Counseling and Screening (12+)] [facility] Future Scheduled Test 1984 00:00:00 Tobacco Cessation Counseling and Screening (12+) [code = Tobacco Cessation Counseling and Screening (12+)] [facility] Future Scheduled Test 1984 00:00:00 Tobacco Cessation Counseling and Screening (12+) [code = Tobacco Cessation Counseling and Screening (12+)] [facility] Future Scheduled Test 1984 00:00:00 Tobacco Cessation Counseling and Screening (12+) [code = Tobacco Cessation Counseling and Screening (12+)] [facility] Future Scheduled Test 1984 00:00:00 Tobacco Cessation Counseling and Screening (12+) [code = Tobacco Cessation Counseling and Screening (12+)] [facility] Future Scheduled Test 1984 00:00:00 Tobacco Cessation Counseling and Screening (12+) [code = Tobacco Cessation Counseling and Screening (12+)] [facility] Future Scheduled Test 1972 00:00:00 Screening for malignant neoplasm of breast (procedure) [code = [id number]] [facility] Future Scheduled Test 1972 00:00:00 CT Colonography (combo) [code = CT Colonography (combo)] [facility] Future Scheduled Test 1972 00:00:00 Screening for malignant neoplasm of colon (procedure) [code = [id number]] [facility] Future Scheduled Test 1972 00:00:00 Screening for malignant neoplasm of colon (procedure) [code = 178620885] [facility] Future Scheduled Test 1972 00:00:00 Screening for malignant neoplasm of colon (procedure) [code = [id number]] [facility] Future Scheduled Test 1972 00:00:00 Screening for malignant neoplasm of colon (procedure) [code = 386325421] [facility] Future Scheduled Test 1972 00:00:00 Sigmoidoscopy [code = Sigmoidoscopy] [facility] Future Scheduled Test 1972 00:00:00 Screening for malignant neoplasm of breast (procedure) [code = 212126342] [facility] Future Scheduled Test 1972 00:00:00 CT Colonography (combo) [code = CT Colonography (combo)] [facility] Future Scheduled Test 1972 00:00:00 Screening for malignant neoplasm of colon (procedure) [code = [id number]] [facility] Future Scheduled Test 1972 00:00:00 Screening for malignant neoplasm of colon (procedure) [code = 921593655] [facility] Future Scheduled Test 1972 00:00:00 Screening for malignant neoplasm of colon (procedure) [code = 850829653] [facility] Future Scheduled Test 1972 00:00:00 Screening for malignant neoplasm of colon (procedure) [code = 607961239] [facility] Future Scheduled Test 1972 00:00:00 Sigmoidoscopy [code = Sigmoidoscopy] [facility] Future Scheduled Test 1972 00:00:00 Screening for malignant neoplasm of breast (procedure) [code = [id number]] [facility] Future Scheduled Test 1972 00:00:00 CT Colonography (combo) [code = CT Colonography (combo)] [facility] Future Scheduled Test 1972 00:00:00 Screening for malignant neoplasm of colon (procedure) [code = [id number]] [facility] Future Scheduled Test 1972 00:00:00 Screening for malignant neoplasm of colon (procedure) [code = 571239444] [facility] Future Scheduled Test 1972 00:00:00 Screening for malignant neoplasm of colon (procedure) [code = 277862989] [facility] Future Scheduled Test 1972 00:00:00 Screening for malignant neoplasm of colon (procedure) [code = 975979171] [facility] Future Scheduled Test 1972 00:00:00 Sigmoidoscopy [code = Sigmoidoscopy] [facility] Future Scheduled Test 1972 00:00:00 Screening for malignant neoplasm of breast (procedure) [code = 030233938] [facility] Future Scheduled Test 1972 00:00:00 CT Colonography (combo) [code = CT Colonography (combo)] [facility] Future Scheduled Test 1972 00:00:00 Screening for malignant neoplasm of colon (procedure) [code = 508422621] [facility] Future Scheduled Test 1972 00:00:00 Screening for malignant neoplasm of colon (procedure) [code = 749661538] [facility] Future Scheduled Test 1972 00:00:00 Screening for malignant neoplasm of colon (procedure) [code = 774330041] [facility] Future Scheduled Test 1972 00:00:00 Screening for malignant neoplasm of colon (procedure) [code = 580373246] [facility] Future Scheduled Test 1972 00:00:00 Sigmoidoscopy [code = Sigmoidoscopy] [facility] Future Scheduled Test 1972 00:00:00 Screening for malignant neoplasm of breast (procedure) [code = 029522032] [facility] Future Scheduled Test 1972 00:00:00 CT Colonography (combo) [code = CT Colonography (combo)] [facility] Future Scheduled Test 1972 00:00:00 Screening for malignant neoplasm of colon (procedure) [code = 772147986] [facility] Future Scheduled Test 1972 00:00:00 Screening for malignant neoplasm of colon (procedure) [code = 474632666] [facility] Future Scheduled Test 1972 00:00:00 Screening for malignant neoplasm of colon (procedure) [code = 178380329] [facility] Future Scheduled Test 1972 00:00:00 Screening for malignant neoplasm of colon (procedure) [code = 787753603] [facility] Future Scheduled Test 1972 00:00:00 Sigmoidoscopy [code = Sigmoidoscopy] [facility] Future Scheduled Test 1972 00:00:00 Screening for malignant neoplasm of breast (procedure) [code = 933699962] [facility] Future Scheduled Test 1972 00:00:00 CT Colonography (combo) [code = CT Colonography (combo)] [facility] Future Scheduled Test 1972 00:00:00 Screening for malignant neoplasm of colon (procedure) [code = 082235709] [facility] Future Scheduled Test 1972 00:00:00 Screening for malignant neoplasm of colon (procedure) [code = 109497942] [facility] Future Scheduled Test 1972 00:00:00 Screening for malignant neoplasm of colon (procedure) [code = 345812340] [facility] Future Scheduled Test 1972 00:00:00 Screening for malignant neoplasm of colon (procedure) [code = 819039465] [facility] Future Scheduled Test 1972 00:00:00 Sigmoidoscopy [code = Sigmoidoscopy] [facility] Future Scheduled Test 1972 00:00:00 Screening for malignant neoplasm of breast (procedure) [code = 896976746] [facility] Future Scheduled Test 1972 00:00:00 CT Colonography (combo) [code = CT Colonography (combo)] [facility] Future Scheduled Test 1972 00:00:00 Screening for malignant neoplasm of colon (procedure) [code = 141720679] [facility] Future Scheduled Test 1972 00:00:00 Screening for malignant neoplasm of colon (procedure) [code = 577962995] [facility] Future Scheduled Test 1972 00:00:00 Screening for malignant neoplasm of colon (procedure) [code = 144504658] [facility] Future Scheduled Test 1972 00:00:00 Screening for malignant neoplasm of colon (procedure) [code = 104869653] [facility] Future Scheduled Test 1972 00:00:00 Sigmoidoscopy [code = Sigmoidoscopy] [facility] Future Scheduled Test 1972 00:00:00 Screening for malignant neoplasm of breast (procedure) [code = 891558475] [facility] Future Scheduled Test 1972 00:00:00 CT Colonography (combo) [code = CT Colonography (combo)] [facility] Future Scheduled Test 1972 00:00:00 Screening for malignant neoplasm of colon (procedure) [code = 849147740] [facility] Future Scheduled Test 1972 00:00:00 Screening for malignant neoplasm of colon (procedure) [code = 858431953] [facility] Future Scheduled Test 1972 00:00:00 Screening for malignant neoplasm of colon (procedure) [code = 148564218] [facility] Future Scheduled Test 1972 00:00:00 Screening for malignant neoplasm of colon (procedure) [code = 699294755] [facility] Future Scheduled Test 1972 00:00:00 Sigmoidoscopy [code = Sigmoidoscopy] [facility] Future Scheduled Test 1972 00:00:00 Screening for malignant neoplasm of breast (procedure) [code = 798097091] [facility] Future Scheduled Test 1972 00:00:00 CT Colonography (combo) [code = CT Colonography (combo)] [facility] Future Scheduled Test 1972 00:00:00 Screening for malignant neoplasm of colon (procedure) [code = 905077204] [facility] Future Scheduled Test 1972 00:00:00 Screening for malignant neoplasm of colon (procedure) [code = 328073624] [facility] Future Scheduled Test 1972 00:00:00 Screening for malignant neoplasm of colon (procedure) [code = 554732803] [facility] Future Scheduled Test 1972 00:00:00 Screening for malignant neoplasm of colon (procedure) [code = 676519660] [facility] Future Scheduled Test 1972 00:00:00 Sigmoidoscopy [code = Sigmoidoscopy] [facility] Future Scheduled Test 1972 00:00:00 Screening for malignant neoplasm of breast (procedure) [code = 881387692] [facility] Future Scheduled Test 1972 00:00:00 CT Colonography (combo) [code = CT Colonography (combo)] [facility] Future Scheduled Test 1972 00:00:00 Screening for malignant neoplasm of colon (procedure) [code = 788911589] [facility] Future Scheduled Test 1972 00:00:00 Screening for malignant neoplasm of colon (procedure) [code = 509662084] [facility] Future Scheduled Test 1972 00:00:00 Screening for malignant neoplasm of colon (procedure) [code = 542863429] [facility] Future Scheduled Test 1972 00:00:00 Screening for malignant neoplasm of colon (procedure) [code = 148609206] [facility] Future Scheduled Test 1972 00:00:00 Sigmoidoscopy [code = Sigmoidoscopy] [facility] Future Scheduled Test 1972 00:00:00 Screening for malignant neoplasm of breast (procedure) [code = 323006821] [facility] Future Scheduled Test 1972 00:00:00 CT Colonography (combo) [code = CT Colonography (combo)] [facility] Future Scheduled Test 1972 00:00:00 Screening for malignant neoplasm of colon (procedure) [code = 944563910] [facility] Future Scheduled Test 1972 00:00:00 Screening for malignant neoplasm of colon (procedure) [code = 986491885] [facility] Future Scheduled Test 1972 00:00:00 Screening for malignant neoplasm of colon (procedure) [code = 926740902] [facility] Future Scheduled Test 1972 00:00:00 Screening for malignant neoplasm of colon (procedure) [code = 451574767] [facility] Future Scheduled Test 1972 00:00:00 Sigmoidoscopy [code = Sigmoidoscopy] [facility] Future Scheduled Test 1972 00:00:00 Screening for malignant neoplasm of breast (procedure) [code = 602666894] [facility] Future Scheduled Test 1972 00:00:00 CT Colonography (combo) [code = CT Colonography (combo)] [facility] Future Scheduled Test 1972 00:00:00 Screening for malignant neoplasm of colon (procedure) [code = 287864078] [facility] Future Scheduled Test 1972 00:00:00 Screening for malignant neoplasm of colon (procedure) [code = 967458295] [facility] Future Scheduled Test 1972 00:00:00 Screening for malignant neoplasm of colon (procedure) [code = 411609328] [facility] Future Scheduled Test 1972 00:00:00 Screening for malignant neoplasm of colon (procedure) [code = 826916398] [facility] Future Scheduled Test 1972 00:00:00 Sigmoidoscopy [code = Sigmoidoscopy] [facility] Future Scheduled Test 1972 00:00:00 Screening for malignant neoplasm of breast (procedure) [code = 031385657] [facility] Future Scheduled Test 1972 00:00:00 CT Colonography (combo) [code = CT Colonography (combo)] [facility] Future Scheduled Test 1972 00:00:00 Screening for malignant neoplasm of colon (procedure) [code = 720063683] [facility] Future Scheduled Test 1972 00:00:00 Screening for malignant neoplasm of colon (procedure) [code = 225572337] [facility] Future Scheduled Test 1972 00:00:00 Screening for malignant neoplasm of colon (procedure) [code = 761274582] [facility] Future Scheduled Test 1972 00:00:00 Screening for malignant neoplasm of colon (procedure) [code = 186798306] [facility] Future Scheduled Test 1972 00:00:00 Sigmoidoscopy [code = Sigmoidoscopy] [facility] Future Scheduled Test 1972 00:00:00 Screening for malignant neoplasm of breast (procedure) [code = 839020952] [facility] Future Scheduled Test 1972 00:00:00 CT Colonography (combo) [code = CT Colonography (combo)] [facility] Future Scheduled Test 1972 00:00:00 Screening for malignant neoplasm of colon (procedure) [code = 969811403] [facility] Future Scheduled Test 1972 00:00:00 Screening for malignant neoplasm of colon (procedure) [code = 933711018] [facility] Future Scheduled Test 1972 00:00:00 Screening for malignant neoplasm of colon (procedure) [code = 782083830] [facility] Future Scheduled Test 1972 00:00:00 Screening for malignant neoplasm of colon (procedure) [code = 961493074] [facility] Future Scheduled Test 1972 00:00:00 Sigmoidoscopy [code = Sigmoidoscopy] [facility] Future Scheduled Test 1972 00:00:00 Screening for malignant neoplasm of breast (procedure) [code = 542527465] [facility] Future Scheduled Test 1972 00:00:00 CT Colonography (combo) [code = CT Colonography (combo)] [facility] Future Scheduled Test 1972 00:00:00 Screening for malignant neoplasm of colon (procedure) [code = 009660887] [facility] Future Scheduled Test 1972 00:00:00 Screening for malignant neoplasm of colon (procedure) [code = 129927301] [facility] Future Scheduled Test 1972 00:00:00 Screening for malignant neoplasm of colon (procedure) [code = 333616819] [facility] Future Scheduled Test 1972 00:00:00 Screening for malignant neoplasm of colon (procedure) [code = 140714398] [facility] Future Scheduled Test 1972 00:00:00 Sigmoidoscopy [code = Sigmoidoscopy] [facility] Future Scheduled Test 1972 00:00:00 Screening for malignant neoplasm of breast (procedure) [code = 323154992] [facility] Future Scheduled Test 1972 00:00:00 CT Colonography (combo) [code = CT Colonography (combo)] [facility] Future Scheduled Test 1972 00:00:00 Screening for malignant neoplasm of colon (procedure) [code = 014127022] [facility] Future Scheduled Test 1972 00:00:00 Screening for malignant neoplasm of colon (procedure) [code = 491678148] [facility] Future Scheduled Test 1972 00:00:00 Screening for malignant neoplasm of colon (procedure) [code = 124095786] [facility] Future Scheduled Test 1972 00:00:00 Screening for malignant neoplasm of colon (procedure) [code = 465504664] [facility] Future Scheduled Test 1972 00:00:00 Sigmoidoscopy [code = Sigmoidoscopy] [facility] Future Scheduled Test 1972 00:00:00 Screening for malignant neoplasm of breast (procedure) [code = 616401259] [facility] Future Scheduled Test 1972 00:00:00 CT Colonography (combo) [code = CT Colonography (combo)] [facility] Future Scheduled Test 1972 00:00:00 Screening for malignant neoplasm of colon (procedure) [code = 655849470] [facility] Future Scheduled Test 1972 00:00:00 Screening for malignant neoplasm of colon (procedure) [code = 883032992] [facility] Future Scheduled Test 1972 00:00:00 Screening for malignant neoplasm of colon (procedure) [code = 636516190] [facility] Future Scheduled Test 1972 00:00:00 Screening for malignant neoplasm of colon (procedure) [code = 643543125] [facility] Future Scheduled Test 1972 00:00:00 Sigmoidoscopy [code = Sigmoidoscopy] [facility] Future Scheduled Test 1972 00:00:00 Screening for malignant neoplasm of breast (procedure) [code = 651458754] [facility] Future Scheduled Test 1972 00:00:00 CT Colonography (combo) [code = CT Colonography (combo)] [facility] Future Scheduled Test 1972 00:00:00 Screening for malignant neoplasm of breast (procedure) [code = 873882631] [facility] Future Scheduled Test 1972 00:00:00 CT Colonography (combo) [code = CT Colonography (combo)] [facility] Future Scheduled Test 1972 00:00:00 Screening for malignant neoplasm of colon (procedure) [code = 016982623] [facility] Future Scheduled Test 1972 00:00:00 Screening for malignant neoplasm of colon (procedure) [code = 992143519] [facility] Future Scheduled Test 1972 00:00:00 Screening for malignant neoplasm of colon (procedure) [code = 418912671] [facility] Future Scheduled Test 1972 00:00:00 Screening for malignant neoplasm of colon (procedure) [code = 984497110] [facility] Future Scheduled Test 1972 00:00:00 Sigmoidoscopy [code = Sigmoidoscopy] [facility] Future Scheduled Test 1972 00:00:00 Screening for malignant neoplasm of colon (procedure) [code = 593990666] [facility] Future Scheduled Test 1972 00:00:00 Screening for malignant neoplasm of colon (procedure) [code = 556250721] [facility] Future Scheduled Test 1972 00:00:00 Screening for malignant neoplasm of colon (procedure) [code = 399194112] [facility] Future Scheduled Test 1972 00:00:00 Screening for malignant neoplasm of colon (procedure) [code = 910622937] [facility] Future Scheduled Test 1972 00:00:00 Sigmoidoscopy [code = Sigmoidoscopy] [facility] Future Scheduled Test 1972 00:00:00 Screening for malignant neoplasm of breast (procedure) [code = 680119431] [facility] Future Scheduled Test 1972 00:00:00 CT Colonography (combo) [code = CT Colonography (combo)] [facility] Future Scheduled Test 1972 00:00:00 Screening for malignant neoplasm of colon (procedure) [code = 052576453] [facility] Future Scheduled Test 1972 00:00:00 Screening for malignant neoplasm of colon (procedure) [code = 740834563] [facility] Future Scheduled Test 1972 00:00:00 Screening for malignant neoplasm of colon (procedure) [code = 318664928] [facility] Future Scheduled Test 1972 00:00:00 Screening for malignant neoplasm of colon (procedure) [code = 100680821] [facility] Future Scheduled Test 1972 00:00:00 Sigmoidoscopy [code = Sigmoidoscopy] [facility] Future Scheduled Test 1972 00:00:00 Screening for malignant neoplasm of breast (procedure) [code = 916180157] [facility] Future Scheduled Test 1972 00:00:00 CT Colonography (combo) [code = CT Colonography (combo)] [facility] Future Scheduled Test 1972 00:00:00 Screening for malignant neoplasm of colon (procedure) [code = 220207894] [facility] Future Scheduled Test 1972 00:00:00 Screening for malignant neoplasm of colon (procedure) [code = 719402672] [facility] Future Scheduled Test 1972 00:00:00 Screening for malignant neoplasm of colon (procedure) [code = 055513913] [facility] Future Scheduled Test 1972 00:00:00 Screening for malignant neoplasm of colon (procedure) [code = 410124337] [facility] Future Scheduled Test 1972 00:00:00 Sigmoidoscopy [code = Sigmoidoscopy] [facility] Future Scheduled Test 1972 00:00:00 Screening for malignant neoplasm of breast (procedure) [code = 011769328] [facility] Future Scheduled Test 1972 00:00:00 CT Colonography (combo) [code = CT Colonography (combo)] [facility] Future Scheduled Test 1972 00:00:00 Screening for malignant neoplasm of colon (procedure) [code = 261297920] [facility] Future Scheduled Test 1972 00:00:00 Screening for malignant neoplasm of colon (procedure) [code = 947753697] [facility] Future Scheduled Test 1972 00:00:00 Screening for malignant neoplasm of colon (procedure) [code = 832835312] [facility] Future Scheduled Test 1972 00:00:00 Screening for malignant neoplasm of colon (procedure) [code = 568162460] [facility] Future Scheduled Test 1972 00:00:00 Sigmoidoscopy [code = Sigmoidoscopy] [facility] Future Scheduled Test 1972 00:00:00 Screening for malignant neoplasm of breast (procedure) [code = 592654994] [facility] Future Scheduled Test 1972 00:00:00 CT Colonography (combo) [code = CT Colonography (combo)] [facility] Future Scheduled Test 1972 00:00:00 Screening for malignant neoplasm of colon (procedure) [code = 750314868] [facility] Future Scheduled Test 1972 00:00:00 Screening for malignant neoplasm of colon (procedure) [code = 784977802] [facility] Future Scheduled Test 1972 00:00:00 Screening for malignant neoplasm of colon (procedure) [code = 989364083] [facility] Future Scheduled Test 1972 00:00:00 Screening for malignant neoplasm of colon (procedure) [code = 920826871] [facility] Future Scheduled Test 1972 00:00:00 Sigmoidoscopy [code = Sigmoidoscopy] [facility] Future Scheduled Test 1972 00:00:00 Screening for malignant neoplasm of breast (procedure) [code = 190979415] [facility] Future Scheduled Test 1972 00:00:00 CT Colonography (combo) [code = CT Colonography (combo)] [facility] Future Scheduled Test 1972 00:00:00 Screening for malignant neoplasm of colon (procedure) [code = 414017601] [facility] Future Scheduled Test 1972 00:00:00 Screening for malignant neoplasm of colon (procedure) [code = 216808790] [facility] Future Scheduled Test 1972 00:00:00 Screening for malignant neoplasm of colon (procedure) [code = 873160722] [facility] Future Scheduled Test 1972 00:00:00 Screening for malignant neoplasm of colon (procedure) [code = 487724486] [facility] Future Scheduled Test 1972 00:00:00 Sigmoidoscopy [code = Sigmoidoscopy] [facility] Future Scheduled Test 1972 00:00:00 Screening for malignant neoplasm of breast (procedure) [code = 612131684] [facility] Future Scheduled Test 1972 00:00:00 CT Colonography (combo) [code = CT Colonography (combo)] [facility] Future Scheduled Test 1972 00:00:00 Screening for malignant neoplasm of colon (procedure) [code = 633306188] [facility] Future Scheduled Test 1972 00:00:00 Screening for malignant neoplasm of colon (procedure) [code = 077610782] [facility] Future Scheduled Test 1972 00:00:00 Screening for malignant neoplasm of colon (procedure) [code = 864127546] [facility] Future Scheduled Test 1972 00:00:00 Screening for malignant neoplasm of colon (procedure) [code = 524041516] [facility] Future Scheduled Test 1972 00:00:00 Sigmoidoscopy [code = Sigmoidoscopy] [facility] Future Scheduled Test 1972 00:00:00 Screening for malignant neoplasm of breast (procedure) [code = 125747154] [facility] Future Scheduled Test 1972 00:00:00 CT Colonography (combo) [code = CT Colonography (combo)] [facility] Future Scheduled Test 1972 00:00:00 Screening for malignant neoplasm of colon (procedure) [code = 478331235] [facility] Future Scheduled Test 1972 00:00:00 Screening for malignant neoplasm of colon (procedure) [code = 975638252] [facility] Future Scheduled Test 1972 00:00:00 Screening for malignant neoplasm of colon (procedure) [code = 682939365] [facility] Future Scheduled Test 1972 00:00:00 Screening for malignant neoplasm of colon (procedure) [code = 779192809] [facility] Future Scheduled Test 1972 00:00:00 Screening for malignant neoplasm of breast (procedure) [code = 814110040] [facility] Future Scheduled Test 1972 00:00:00 CT Colonography (combo) [code = CT Colonography (combo)] [facility] Future Scheduled Test 1972 00:00:00 Sigmoidoscopy [code = Sigmoidoscopy] [facility] Future Scheduled Test 1972 00:00:00 Screening for malignant neoplasm of colon (procedure) [code = 475948936] [facility] Future Scheduled Test 1972 00:00:00 Screening for malignant neoplasm of colon (procedure) [code = 616100439] [facility] Future Scheduled Test 1972 00:00:00 Screening for malignant neoplasm of colon (procedure) [code = 737879447] [facility] Future Scheduled Test 1972 00:00:00 Screening for malignant neoplasm of colon (procedure) [code = 915547190] [facility] Future Scheduled Test 1972 00:00:00 Sigmoidoscopy [code = Sigmoidoscopy] [facility] Future Scheduled Test 1972 00:00:00 Screening for malignant neoplasm of breast (procedure) [code = 873728843] [facility] Future Scheduled Test 1972 00:00:00 CT Colonography (combo) [code = CT Colonography (combo)] [facility] Future Scheduled Test 1972 00:00:00 Screening for malignant neoplasm of colon (procedure) [code = 263626108] [facility] Future Scheduled Test 1972 00:00:00 Screening for malignant neoplasm of colon (procedure) [code = 082399338] [facility] Future Scheduled Test 1972 00:00:00 Screening for malignant neoplasm of colon (procedure) [code = 699926310] [facility] Future Scheduled Test 1972 00:00:00 Screening for malignant neoplasm of colon (procedure) [code = 459427191] [facility] Future Scheduled Test 1972 00:00:00 Sigmoidoscopy [code = Sigmoidoscopy] [facility] Future Scheduled Test 1972 00:00:00 Screening for malignant neoplasm of breast (procedure) [code = 987657438] [facility] Future Scheduled Test 1972 00:00:00 CT Colonography (combo) [code = CT Colonography (combo)] [facility] Future Scheduled Test 1972 00:00:00 Screening for malignant neoplasm of colon (procedure) [code = [id number]] [facility] Future Scheduled Test 1972 00:00:00 Screening for malignant neoplasm of colon (procedure) [code = 006230176] [facility] Future Scheduled Test 1972 00:00:00 Screening for malignant neoplasm of colon (procedure) [code = 956408370] [facility] Future Scheduled Test 1972 00:00:00 Screening for malignant neoplasm of colon (procedure) [code = 447440525] [facility] Future Scheduled Test 1972 00:00:00 Sigmoidoscopy [code = Sigmoidoscopy] [facility] Future Scheduled Test 1972 00:00:00 Screening for malignant neoplasm of breast (procedure) [code = 773681424] [facility] Future Scheduled Test 1972 00:00:00 CT Colonography (combo) [code = CT Colonography (combo)] [facility] Future Scheduled Test 1972 00:00:00 Screening for malignant neoplasm of colon (procedure) [code = 438747819] [facility] Future Scheduled Test 1972 00:00:00 Screening for malignant neoplasm of colon (procedure) [code = 610225557] [facility] Future Scheduled Test 1972 00:00:00 Screening for malignant neoplasm of colon (procedure) [code = 050563242] [facility] Future Scheduled Test 1972 00:00:00 Screening for malignant neoplasm of colon (procedure) [code = 499186306] [facility] Future Scheduled Test 1972 00:00:00 Sigmoidoscopy [code = Sigmoidoscopy] [facility] Future Scheduled Test 1972 00:00:00 Screening for malignant neoplasm of breast (procedure) [code = 839136348] [facility] Future Scheduled Test 1972 00:00:00 CT Colonography (combo) [code = CT Colonography (combo)] [facility] Future Scheduled Test 1972 00:00:00 Screening for malignant neoplasm of colon (procedure) [code = 824748560] [facility] Future Scheduled Test 1972 00:00:00 Screening for malignant neoplasm of colon (procedure) [code = 472889443] [facility] Future Scheduled Test 1972 00:00:00 Screening for malignant neoplasm of colon (procedure) [code = 831793922] [facility] Future Scheduled Test 1972 00:00:00 Screening for malignant neoplasm of colon (procedure) [code = 422528333] [facility] Future Scheduled Test 1972 00:00:00 Sigmoidoscopy [code = Sigmoidoscopy] [facility] Future Scheduled Test 1972 00:00:00 Screening for malignant neoplasm of breast (procedure) [code = 944687874] [facility] Future Scheduled Test 1972 00:00:00 CT Colonography (combo) [code = CT Colonography (combo)] [facility] Future Scheduled Test 1972 00:00:00 Screening for malignant neoplasm of colon (procedure) [code = 667445972] [facility] Future Scheduled Test 1972 00:00:00 Screening for malignant neoplasm of colon (procedure) [code = 160340236] [facility] Future Scheduled Test 1972 00:00:00 Screening for malignant neoplasm of colon (procedure) [code = 945018939] [facility] Future Scheduled Test 1972 00:00:00 Screening for malignant neoplasm of colon (procedure) [code = 361809650] [facility] Future Scheduled Test 1972 00:00:00 Sigmoidoscopy [code = Sigmoidoscopy] [facility] Future Scheduled Test 1972 00:00:00 Screening for malignant neoplasm of breast (procedure) [code = 343653499] [facility] Future Scheduled Test 1972 00:00:00 CT Colonography (combo) [code = CT Colonography (combo)] [facility] Future Scheduled Test 1972 00:00:00 Screening for malignant neoplasm of colon (procedure) [code = 711179013] [facility] Future Scheduled Test 1972 00:00:00 Screening for malignant neoplasm of colon (procedure) [code = 532449345] [facility] Future Scheduled Test 1972 00:00:00 Screening for malignant neoplasm of breast (procedure) [code = 083861509] [facility] Future Scheduled Test 1972 00:00:00 Screening for malignant neoplasm of colon (procedure) [code = 988291626] [facility] Future Scheduled Test 1972 00:00:00 CT Colonography (combo) [code = CT Colonography (combo)] [facility] Future Scheduled Test 1972 00:00:00 Screening for malignant neoplasm of colon (procedure) [code = 688620444] [facility] Future Scheduled Test 1972 00:00:00 Screening for malignant neoplasm of colon (procedure) [code = 677559298] [facility] Future Scheduled Test 1972 00:00:00 Screening for malignant neoplasm of colon (procedure) [code = 450353587] [facility] Future Scheduled Test 1972 00:00:00 Screening for malignant neoplasm of colon (procedure) [code = 505639802] [facility] Future Scheduled Test 1972 00:00:00 Sigmoidoscopy [code = Sigmoidoscopy] [facility] Future Scheduled Test 1972 00:00:00 Screening for malignant neoplasm of colon (procedure) [code = 729508036] [facility] Future Scheduled Test 1972 00:00:00 Sigmoidoscopy [code = Sigmoidoscopy] [facility] Future Scheduled Test 1972 00:00:00 Screening for malignant neoplasm of breast (procedure) [code = 366974685] [facility] Future Scheduled Test 1972 00:00:00 CT Colonography (combo) [code = CT Colonography (combo)] [facility] Future Scheduled Test 1972 00:00:00 Screening for malignant neoplasm of colon (procedure) [code = 904514575] [facility] Future Scheduled Test 1972 00:00:00 Screening for malignant neoplasm of colon (procedure) [code = 316787111] [facility] Future Scheduled Test 1972 00:00:00 Screening for malignant neoplasm of colon (procedure) [code = 439782065] [facility] Future Scheduled Test 1972 00:00:00 Screening for malignant neoplasm of colon (procedure) [code = 320634119] [facility] Future Scheduled Test 1972 00:00:00 Sigmoidoscopy [code = Sigmoidoscopy] [facility] Future Scheduled Test 1972 00:00:00 Screening for malignant neoplasm of breast (procedure) [code = 554791931] [facility] Future Scheduled Test 1972 00:00:00 CT Colonography (combo) [code = CT Colonography (combo)] [facility] Future Scheduled Test 1972 00:00:00 Screening for malignant neoplasm of colon (procedure) [code = 164273453] [facility] Future Scheduled Test 1972 00:00:00 Screening for malignant neoplasm of colon (procedure) [code = 243709550] [facility] Future Scheduled Test 1972 00:00:00 Screening for malignant neoplasm of colon (procedure) [code = 401904558] [facility] Future Scheduled Test 1972 00:00:00 Screening for malignant neoplasm of colon (procedure) [code = 837412729] [facility] Future Scheduled Test 1972 00:00:00 Sigmoidoscopy [code = Sigmoidoscopy] [facility] Future Scheduled Test 1972 00:00:00 Screening for malignant neoplasm of breast (procedure) [code = 615461937] [facility] Future Scheduled Test 1972 00:00:00 CT Colonography (combo) [code = CT Colonography (combo)] [facility] Future Scheduled Test 1972 00:00:00 Screening for malignant neoplasm of colon (procedure) [code = 910742981] [facility] Future Scheduled Test 1972 00:00:00 Screening for malignant neoplasm of colon (procedure) [code = 729003645] [facility] Future Scheduled Test 1972 00:00:00 Screening for malignant neoplasm of colon (procedure) [code = 063233831] [facility] Future Scheduled Test 1972 00:00:00 Screening for malignant neoplasm of colon (procedure) [code = 922712199] [facility] Future Scheduled Test 1972 00:00:00 Sigmoidoscopy [code = Sigmoidoscopy] [facility] Future Scheduled Test 1972 00:00:00 Screening for malignant neoplasm of breast (procedure) [code = 940068693] [facility] Future Scheduled Test 1972 00:00:00 CT Colonography (combo) [code = CT Colonography (combo)] [facility] Future Scheduled Test 1972 00:00:00 Screening for malignant neoplasm of colon (procedure) [code = 653766589] [facility] Future Scheduled Test 1972 00:00:00 Screening for malignant neoplasm of colon (procedure) [code = 704644421] [facility] Future Scheduled Test 1972 00:00:00 Screening for malignant neoplasm of colon (procedure) [code = 303875386] [facility] Future Scheduled Test 1972 00:00:00 Screening for malignant neoplasm of colon (procedure) [code = 687098564] [facility] Future Scheduled Test 1972 00:00:00 Sigmoidoscopy [code = Sigmoidoscopy] [facility] Future Scheduled Test 1972 00:00:00 Screening for malignant neoplasm of breast (procedure) [code = 144085402] [facility] Future Scheduled Test 1972 00:00:00 CT Colonography (combo) [code = CT Colonography (combo)] [facility] Future Scheduled Test 1972 00:00:00 Screening for malignant neoplasm of colon (procedure) [code = 190466403] [facility] Future Scheduled Test 1972 00:00:00 Screening for malignant neoplasm of colon (procedure) [code = 555025548] [facility] Future Scheduled Test 1972 00:00:00 Screening for malignant neoplasm of colon (procedure) [code = 753030087] [facility] Future Scheduled Test 1972 00:00:00 Screening for malignant neoplasm of colon (procedure) [code = 032665043] [facility] Future Scheduled Test 1972 00:00:00 Sigmoidoscopy [code = Sigmoidoscopy] [facility] Future Scheduled Test 1972 00:00:00 Screening for malignant neoplasm of breast (procedure) [code = 105626938] [facility] Future Scheduled Test 1972 00:00:00 CT Colonography (combo) [code = CT Colonography (combo)] [facility] Future Scheduled Test 1972 00:00:00 Screening for malignant neoplasm of colon (procedure) [code = 651607497] [facility] Future Scheduled Test 1972 00:00:00 Screening for malignant neoplasm of colon (procedure) [code = 846134947] [facility] Future Scheduled Test 1972 00:00:00 Screening for malignant neoplasm of colon (procedure) [code = 426134365] [facility] Future Scheduled Test 1972 00:00:00 Screening for malignant neoplasm of colon (procedure) [code = 353092562] [facility] Future Scheduled Test 1972 00:00:00 Sigmoidoscopy [code = Sigmoidoscopy] [facility] Future Scheduled Test 1972 00:00:00 Screening for malignant neoplasm of breast (procedure) [code = 057840121] [facility] Future Scheduled Test 1972 00:00:00 CT Colonography (combo) [code = CT Colonography (combo)] [facility] Future Scheduled Test 1972 00:00:00 Screening for malignant neoplasm of colon (procedure) [code = 196778936] [facility] Future Scheduled Test 1972 00:00:00 Screening for malignant neoplasm of colon (procedure) [code = 905970515] [facility] Future Scheduled Test 1972 00:00:00 Screening for malignant neoplasm of colon (procedure) [code = 649778005] [facility] Future Scheduled Test 1972 00:00:00 Screening for malignant neoplasm of colon (procedure) [code = 015041913] [facility] Future Scheduled Test 1972 00:00:00 Sigmoidoscopy [code = Sigmoidoscopy] [facility] Future Scheduled Test 1972 00:00:00 Screening for malignant neoplasm of breast (procedure) [code = 914630854] [facility] Future Scheduled Test 1972 00:00:00 CT Colonography (combo) [code = CT Colonography (combo)] [facility] Future Scheduled Test 1972 00:00:00 Screening for malignant neoplasm of colon (procedure) [code = 072213939] [facility] Future Scheduled Test 1972 00:00:00 Screening for malignant neoplasm of colon (procedure) [code = 627012403] [facility] Future Scheduled Test 1972 00:00:00 Screening for malignant neoplasm of colon (procedure) [code = 529056595] [facility] Future Scheduled Test 1972 00:00:00 Screening for malignant neoplasm of colon (procedure) [code = 869754847] [facility] Future Scheduled Test 1972 00:00:00 Sigmoidoscopy [code = Sigmoidoscopy] [facility] Future Scheduled Test 1972 00:00:00 Screening for malignant neoplasm of breast (procedure) [code = 546924704] [facility] Future Scheduled Test 1972 00:00:00 CT Colonography (combo) [code = CT Colonography (combo)] [facility] Future Scheduled Test 1972 00:00:00 Screening for malignant neoplasm of colon (procedure) [code = 455777389] [facility] Future Scheduled Test 1972 00:00:00 Screening for malignant neoplasm of colon (procedure) [code = 030709212] [facility] Future Scheduled Test 1972 00:00:00 Screening for malignant neoplasm of colon (procedure) [code = 534014748] [facility] Future Scheduled Test 1972 00:00:00 Screening for malignant neoplasm of colon (procedure) [code = 165392194] [facility] Future Scheduled Test 1972 00:00:00 Sigmoidoscopy [code = Sigmoidoscopy] [facility] Future Scheduled Test 1972 00:00:00 Screening for malignant neoplasm of breast (procedure) [code = 897743329] [facility] Future Scheduled Test 1972 00:00:00 CT Colonography (combo) [code = CT Colonography (combo)] [facility] Future Scheduled Test 1972 00:00:00 Screening for malignant neoplasm of colon (procedure) [code = 789190691] [facility] Future Scheduled Test 1972 00:00:00 Screening for malignant neoplasm of colon (procedure) [code = 121960548] [facility] Future Scheduled Test 1972 00:00:00 Screening for malignant neoplasm of colon (procedure) [code = 817278864] [facility] Future Scheduled Test 1972 00:00:00 Screening for malignant neoplasm of colon (procedure) [code = 205183404] [facility] Future Scheduled Test 1972 00:00:00 Sigmoidoscopy [code = Sigmoidoscopy] [facility] Future Scheduled Test 1972 00:00:00 Screening for malignant neoplasm of breast (procedure) [code = 996514559] [facility] Future Scheduled Test 1972 00:00:00 CT Colonography (combo) [code = CT Colonography (combo)] [facility] Future Scheduled Test 1972 00:00:00 Screening for malignant neoplasm of colon (procedure) [code = 592911042] [facility] Future Scheduled Test 1972 00:00:00 Screening for malignant neoplasm of breast (procedure) [code = 307327481] [facility] Future Scheduled Test 1972 00:00:00 CT Colonography (combo) [code = CT Colonography (combo)] [facility] Future Scheduled Test 1972 00:00:00 Screening for malignant neoplasm of colon (procedure) [code = 088404426] [facility] Future Scheduled Test 1972 00:00:00 Screening for malignant neoplasm of colon (procedure) [code = 430704643] [facility] Future Scheduled Test 1972 00:00:00 Screening for malignant neoplasm of colon (procedure) [code = 497922305] [facility] Future Scheduled Test 1972 00:00:00 Screening for malignant neoplasm of colon (procedure) [code = 758011819] [facility] Future Scheduled Test 1972 00:00:00 Sigmoidoscopy [code = Sigmoidoscopy] [facility] Future Scheduled Test 1972 00:00:00 Screening for malignant neoplasm of colon (procedure) [code = 463867512] [facility] Future Scheduled Test 1972 00:00:00 Screening for malignant neoplasm of colon (procedure) [code = 878277123] [facility] Future Scheduled Test 1972 00:00:00 Screening for malignant neoplasm of colon (procedure) [code = 025275093] [facility] Future Scheduled Test 1972 00:00:00 Sigmoidoscopy [code = Sigmoidoscopy] [facility] Future Scheduled Test 1972 00:00:00 Screening for malignant neoplasm of breast (procedure) [code = 306515231] [facility] Future Scheduled Test 1972 00:00:00 CT Colonography (combo) [code = CT Colonography (combo)] [facility] Future Scheduled Test 1972 00:00:00 Screening for malignant neoplasm of colon (procedure) [code = 580591478] [facility] Future Scheduled Test 1972 00:00:00 Screening for malignant neoplasm of colon (procedure) [code = 324333450] [facility] Future Scheduled Test 1972 00:00:00 Screening for malignant neoplasm of colon (procedure) [code = 141866201] [facility] Future Scheduled Test 1972 00:00:00 Screening for malignant neoplasm of colon (procedure) [code = 676870866] [facility] Future Scheduled Test 1972 00:00:00 Sigmoidoscopy [code = Sigmoidoscopy] [facility] Future Scheduled Test 1972 00:00:00 Screening for malignant neoplasm of breast (procedure) [code = 486817292] [facility] Future Scheduled Test 1972 00:00:00 CT Colonography (combo) [code = CT Colonography (combo)] [facility] Future Scheduled Test 1972 00:00:00 Screening for malignant neoplasm of colon (procedure) [code = 034915285] [facility] Future Scheduled Test 1972 00:00:00 Screening for malignant neoplasm of colon (procedure) [code = 134526798] [facility] Future Scheduled Test 1972 00:00:00 Screening for malignant neoplasm of colon (procedure) [code = 599725498] [facility] Future Scheduled Test 1972 00:00:00 Screening for malignant neoplasm of colon (procedure) [code = 129836921] [facility] Future Scheduled Test 1972 00:00:00 Sigmoidoscopy [code = Sigmoidoscopy] [facility] Future Scheduled Test 1972 00:00:00 Screening for malignant neoplasm of breast (procedure) [code = 759714361] [facility] Future Scheduled Test 1972 00:00:00 CT Colonography (combo) [code = CT Colonography (combo)] [facility] Future Scheduled Test 1972 00:00:00 Screening for malignant neoplasm of colon (procedure) [code = 747962670] [facility] Future Scheduled Test 1972 00:00:00 Screening for malignant neoplasm of colon (procedure) [code = 100800156] [facility] Future Scheduled Test 1972 00:00:00 Screening for malignant neoplasm of colon (procedure) [code = 599822096] [facility] Future Scheduled Test 1972 00:00:00 Screening for malignant neoplasm of colon (procedure) [code = 904570806] [facility] Future Scheduled Test 1972 00:00:00 Sigmoidoscopy [code = Sigmoidoscopy] [facility] Future Scheduled Test 1972 00:00:00 Screening for malignant neoplasm of breast (procedure) [code = 110785880] [facility] Future Scheduled Test 1972 00:00:00 CT Colonography (combo) [code = CT Colonography (combo)] [facility] Future Scheduled Test 1972 00:00:00 Screening for malignant neoplasm of colon (procedure) [code = 589212120] [facility] Future Scheduled Test 1972 00:00:00 Screening for malignant neoplasm of colon (procedure) [code = 677082901] [facility] Future Scheduled Test 1972 00:00:00 Screening for malignant neoplasm of colon (procedure) [code = 342092822] [facility] Future Scheduled Test 1972 00:00:00 Screening for malignant neoplasm of colon (procedure) [code = 485270319] [facility] Future Scheduled Test 1972 00:00:00 Sigmoidoscopy [code = Sigmoidoscopy] [facility] Future Scheduled Test 1972 00:00:00 Screening for malignant neoplasm of breast (procedure) [code = 065169272] [facility] Future Scheduled Test 1972 00:00:00 CT Colonography (combo) [code = CT Colonography (combo)] [facility] Future Scheduled Test 1972 00:00:00 Screening for malignant neoplasm of colon (procedure) [code = 697956316] [facility] Future Scheduled Test 1972 00:00:00 Screening for malignant neoplasm of colon (procedure) [code = 542991508] [facility] Future Scheduled Test 1972 00:00:00 Screening for malignant neoplasm of colon (procedure) [code = 356585457] [facility] Future Scheduled Test 1972 00:00:00 Screening for malignant neoplasm of colon (procedure) [code = 856191554] [facility] Future Scheduled Test 1972 00:00:00 Screening for malignant neoplasm of breast (procedure) [code = 337026484] [facility] Future Scheduled Test 1972 00:00:00 Sigmoidoscopy [code = Sigmoidoscopy] [facility] Future Scheduled Test 1972 00:00:00 CT Colonography (combo) [code = CT Colonography (combo)] [facility] Future Scheduled Test 1972 00:00:00 Screening for malignant neoplasm of colon (procedure) [code = 708151833] [facility] Future Scheduled Test 1972 00:00:00 Screening for malignant neoplasm of breast (procedure) [code = 781787014] [facility] Future Scheduled Test 1972 00:00:00 CT Colonography (combo) [code = CT Colonography (combo)] [facility] Future Scheduled Test 1972 00:00:00 Screening for malignant neoplasm of colon (procedure) [code = 459287600] [facility] Future Scheduled Test 1972 00:00:00 Screening for malignant neoplasm of colon (procedure) [code = 184839633] [facility] Future Scheduled Test 1972 00:00:00 Screening for malignant neoplasm of colon (procedure) [code = 012032373] [facility] Future Scheduled Test 1972 00:00:00 Screening for malignant neoplasm of colon (procedure) [code = 144810490] [facility] Future Scheduled Test 1972 00:00:00 Screening for malignant neoplasm of colon (procedure) [code = 861092981] [facility] Future Scheduled Test 1972 00:00:00 Sigmoidoscopy [code = Sigmoidoscopy] [facility] Future Scheduled Test 1972 00:00:00 Screening for malignant neoplasm of colon (procedure) [code = 240227420] [facility] Future Scheduled Test 1972 00:00:00 Screening for malignant neoplasm of colon (procedure) [code = 746081355] [facility] Future Scheduled Test 1972 00:00:00 Screening for malignant neoplasm of breast (procedure) [code = 521547100] [facility] Future Scheduled Test 1972 00:00:00 CT Colonography (combo) [code = CT Colonography (combo)] [facility] Future Scheduled Test 1972 00:00:00 Screening for malignant neoplasm of colon (procedure) [code = 599464135] [facility] Future Scheduled Test 1972 00:00:00 Screening for malignant neoplasm of colon (procedure) [code = 723750402] [facility] Future Scheduled Test 1972 00:00:00 Sigmoidoscopy [code = Sigmoidoscopy] [facility] Future Scheduled Test 1972 00:00:00 Screening for malignant neoplasm of colon (procedure) [code = 904380608] [facility] Future Scheduled Test 1972 00:00:00 Screening for malignant neoplasm of colon (procedure) [code = 176725804] [facility] Future Scheduled Test 1972 00:00:00 Sigmoidoscopy [code = Sigmoidoscopy] [facility] Future Scheduled Test 1972 00:00:00 Screening for malignant neoplasm of breast (procedure) [code = 095726572] [facility] Future Scheduled Test 1972 00:00:00 CT Colonography (combo) [code = CT Colonography (combo)] [facility] Future Scheduled Test 1972 00:00:00 Screening for malignant neoplasm of colon (procedure) [code = 078992138] [facility] Future Scheduled Test 1972 00:00:00 Screening for malignant neoplasm of colon (procedure) [code = 120112442] [facility] Future Scheduled Test 1972 00:00:00 Screening for malignant neoplasm of colon (procedure) [code = 466579766] [facility] Future Scheduled Test 1972 00:00:00 Screening for malignant neoplasm of colon (procedure) [code = 008997967] [facility] Future Scheduled Test 1972 00:00:00 Sigmoidoscopy [code = Sigmoidoscopy] [facility] Future Scheduled Test 1972 00:00:00 Screening for malignant neoplasm of breast (procedure) [code = 829124268] [facility] Future Scheduled Test 1972 00:00:00 CT Colonography (combo) [code = CT Colonography (combo)] [facility] Future Scheduled Test 1972 00:00:00 Screening for malignant neoplasm of colon (procedure) [code = 141377425] [facility] Future Scheduled Test 1972 00:00:00 Screening for malignant neoplasm of colon (procedure) [code = 167465678] [facility] Future Scheduled Test 1972 00:00:00 Screening for malignant neoplasm of colon (procedure) [code = 962131657] [facility] Future Scheduled Test 1972 00:00:00 Screening for malignant neoplasm of colon (procedure) [code = 057435693] [facility] Future Scheduled Test 1972 00:00:00 Sigmoidoscopy [code = Sigmoidoscopy] [facility] Future Scheduled Test 1972 00:00:00 Screening for malignant neoplasm of breast (procedure) [code = 338600102] [facility] Future Scheduled Test 1972 00:00:00 CT Colonography (combo) [code = CT Colonography (combo)] [facility] Future Scheduled Test 1972 00:00:00 Screening for malignant neoplasm of colon (procedure) [code = 058997010] [facility] Future Scheduled Test 1972 00:00:00 Screening for malignant neoplasm of colon (procedure) [code = 325825178] [facility] Future Scheduled Test 1972 00:00:00 Screening for malignant neoplasm of colon (procedure) [code = 349386797] [facility] Future Scheduled Test 1972 00:00:00 Screening for malignant neoplasm of colon (procedure) [code = 626770386] [facility] Future Scheduled Test 1972 00:00:00 Sigmoidoscopy [code = Sigmoidoscopy] [facility] Future Scheduled Test 1972 00:00:00 Screening for malignant neoplasm of breast (procedure) [code = 217478652] [facility] Future Scheduled Test 1972 00:00:00 CT Colonography (combo) [code = CT Colonography (combo)] [facility] Future Scheduled Test 1972 00:00:00 Screening for malignant neoplasm of colon (procedure) [code = 956815564] [facility] Future Scheduled Test 1972 00:00:00 Screening for malignant neoplasm of colon (procedure) [code = 531429634] [facility] Future Scheduled Test 1972 00:00:00 Screening for malignant neoplasm of colon (procedure) [code = 922313557] [facility] Future Scheduled Test 1972 00:00:00 Screening for malignant neoplasm of colon (procedure) [code = 406017507] [facility] Future Scheduled Test 1972 00:00:00 Sigmoidoscopy [code = Sigmoidoscopy] [facility] Future Scheduled Test 1972 00:00:00 Screening for malignant neoplasm of breast (procedure) [code = 901106334] [facility] Future Scheduled Test 1972 00:00:00 CT Colonography (combo) [code = CT Colonography (combo)] [facility] Future Scheduled Test 1972 00:00:00 Screening for malignant neoplasm of colon (procedure) [code = 861020187] [facility] Future Scheduled Test 1972 00:00:00 Screening for malignant neoplasm of colon (procedure) [code = 590104479] [facility] Future Scheduled Test 1972 00:00:00 Screening for malignant neoplasm of colon (procedure) [code = 601937905] [facility] Future Scheduled Test 1972 00:00:00 Screening for malignant neoplasm of colon (procedure) [code = 982022017] [facility] Future Scheduled Test 1972 00:00:00 Sigmoidoscopy [code = Sigmoidoscopy] [facility] Future Scheduled Test 1972 00:00:00 Screening for malignant neoplasm of breast (procedure) [code = 617963383] [facility] Future Scheduled Test 1972 00:00:00 CT Colonography (combo) [code = CT Colonography (combo)] [facility] Future Scheduled Test 1972 00:00:00 Screening for malignant neoplasm of colon (procedure) [code = 554760220] [facility] Future Scheduled Test 1972 00:00:00 Screening for malignant neoplasm of colon (procedure) [code = 557415704] [facility] Future Scheduled Test 1972 00:00:00 Screening for malignant neoplasm of colon (procedure) [code = 809233752] [facility] Future Scheduled Test 1972 00:00:00 Screening for malignant neoplasm of colon (procedure) [code = 671248730] [facility] Future Scheduled Test 1972 00:00:00 Sigmoidoscopy [code = Sigmoidoscopy] [facility] Future Scheduled Test 1972 00:00:00 Screening for malignant neoplasm of breast (procedure) [code = 987641662] [facility] Future Scheduled Test 1972 00:00:00 CT Colonography (combo) [code = CT Colonography (combo)] [facility] Future Scheduled Test 1972 00:00:00 Screening for malignant neoplasm of colon (procedure) [code = 902360087] [facility] Future Scheduled Test 1972 00:00:00 Screening for malignant neoplasm of colon (procedure) [code = 097272735] [facility] Future Scheduled Test 1972 00:00:00 Screening for malignant neoplasm of colon (procedure) [code = 730417449] [facility] Future Scheduled Test 1972 00:00:00 Screening for malignant neoplasm of colon (procedure) [code = 715204903] [facility] Future Scheduled Test 1972 00:00:00 Sigmoidoscopy [code = Sigmoidoscopy] [facility] Future Scheduled Test 1972 00:00:00 Screening for malignant neoplasm of breast (procedure) [code = 815683634] [facility] Future Scheduled Test 1972 00:00:00 CT Colonography (combo) [code = CT Colonography (combo)] [facility] Future Scheduled Test 1972 00:00:00 Screening for malignant neoplasm of colon (procedure) [code = 527991098] [facility] Future Scheduled Test 1972 00:00:00 Screening for malignant neoplasm of colon (procedure) [code = 740100944] [facility] Future Scheduled Test 1972 00:00:00 Screening for malignant neoplasm of colon (procedure) [code = 238690066] [facility] Future Scheduled Test 1972 00:00:00 Screening for malignant neoplasm of colon (procedure) [code = 414844164] [facility] Future Scheduled Test 1972 00:00:00 Sigmoidoscopy [code = Sigmoidoscopy] [facility] Future Scheduled Test 1972 00:00:00 Screening for malignant neoplasm of breast (procedure) [code = 431458943] [facility] Future Scheduled Test 1972 00:00:00 CT Colonography (combo) [code = CT Colonography (combo)] [facility] Future Scheduled Test 1972 00:00:00 Screening for malignant neoplasm of colon (procedure) [code = 894271300] [facility] Future Scheduled Test 1972 00:00:00 Screening for malignant neoplasm of colon (procedure) [code = 792458523] [facility] Future Scheduled Test 1972 00:00:00 Screening for malignant neoplasm of colon (procedure) [code = 120641515] [facility] Future Scheduled Test 1972 00:00:00 Screening for malignant neoplasm of colon (procedure) [code = 306014086] [facility] Future Scheduled Test 1972 00:00:00 Sigmoidoscopy [code = Sigmoidoscopy] [facility] Future Scheduled Test 1972 00:00:00 Screening for malignant neoplasm of breast (procedure) [code = 858115877] [facility] Future Scheduled Test 1972 00:00:00 CT Colonography (combo) [code = CT Colonography (combo)] [facility] Future Scheduled Test 1972 00:00:00 Screening for malignant neoplasm of colon (procedure) [code = 755233479] [facility] Future Scheduled Test 1972 00:00:00 Screening for malignant neoplasm of colon (procedure) [code = 011915634] [facility] Future Scheduled Test 1972 00:00:00 Screening for malignant neoplasm of colon (procedure) [code = 052130763] [facility] Future Scheduled Test 1972 00:00:00 Screening for malignant neoplasm of colon (procedure) [code = 766352914] [facility] Future Scheduled Test 1972 00:00:00 Sigmoidoscopy [code = Sigmoidoscopy] [facility] Future Scheduled Test 1972 00:00:00 Screening for malignant neoplasm of breast (procedure) [code = 625218670] [facility] Future Scheduled Test 1972 00:00:00 CT Colonography (combo) [code = CT Colonography (combo)] [facility] Future Scheduled Test 1972 00:00:00 Screening for malignant neoplasm of colon (procedure) [code = 908935668] [facility] Future Scheduled Test 1972 00:00:00 Screening for malignant neoplasm of colon (procedure) [code = 914964228] [facility] Future Scheduled Test 1972 00:00:00 Screening for malignant neoplasm of colon (procedure) [code = 276861275] [facility] Future Scheduled Test 1972 00:00:00 Screening for malignant neoplasm of colon (procedure) [code = 349075957] [facility] Future Scheduled Test 1972 00:00:00 Sigmoidoscopy [code = Sigmoidoscopy] [facility] Future Scheduled Test 1972 00:00:00 Screening for malignant neoplasm of breast (procedure) [code = 078810313] [facility] Future Scheduled Test 1972 00:00:00 CT Colonography (combo) [code = CT Colonography (combo)] [facility] Future Scheduled Test 1972 00:00:00 Screening for malignant neoplasm of colon (procedure) [code = 742958515] [facility] Future Scheduled Test 1972 00:00:00 Screening for malignant neoplasm of colon (procedure) [code = 781955353] [facility] Future Scheduled Test 1972 00:00:00 Screening for malignant neoplasm of colon (procedure) [code = 012433092] [facility] Future Scheduled Test 1972 00:00:00 Screening for malignant neoplasm of colon (procedure) [code = 425804002] [facility] Future Scheduled Test 1972 00:00:00 Sigmoidoscopy [code = Sigmoidoscopy] [facility] Future Scheduled Test 1972 00:00:00 Screening for malignant neoplasm of breast (procedure) [code = 271320065] [facility] Future Scheduled Test 1972 00:00:00 CT Colonography (combo) [code = CT Colonography (combo)] [facility] Future Scheduled Test 1972 00:00:00 Screening for malignant neoplasm of colon (procedure) [code = 595661705] [facility] Future Scheduled Test 1972 00:00:00 Screening for malignant neoplasm of colon (procedure) [code = 959333777] [facility] Future Scheduled Test 1972 00:00:00 Screening for malignant neoplasm of colon (procedure) [code = 285119221] [facility] Future Scheduled Test 1972 00:00:00 Screening for malignant neoplasm of colon (procedure) [code = 634348969] [facility] Future Scheduled Test 1972 00:00:00 Sigmoidoscopy [code = Sigmoidoscopy] [facility] Future Scheduled Test 1972 00:00:00 Screening for malignant neoplasm of breast (procedure) [code = 023213718] [facility] Future Scheduled Test 1972 00:00:00 CT Colonography (combo) [code = CT Colonography (combo)] [facility] Future Scheduled Test 1972 00:00:00 Screening for malignant neoplasm of colon (procedure) [code = 421332324] [facility] Future Scheduled Test 1972 00:00:00 Screening for malignant neoplasm of colon (procedure) [code = 289600413] [facility] Future Scheduled Test 1972 00:00:00 Screening for malignant neoplasm of colon (procedure) [code = 875945819] [facility] Future Scheduled Test 1972 00:00:00 Screening for malignant neoplasm of colon (procedure) [code = 388643747] [facility] Future Scheduled Test 1972 00:00:00 Sigmoidoscopy [code = Sigmoidoscopy] [facility] Future Scheduled Test 1972 00:00:00 Screening for malignant neoplasm of breast (procedure) [code = 008997275] [facility] Future Scheduled Test 1972 00:00:00 CT Colonography (combo) [code = CT Colonography (combo)] [facility] Future Scheduled Test 1972 00:00:00 Screening for malignant neoplasm of colon (procedure) [code = 275873840] [facility] Future Scheduled Test 1972 00:00:00 Screening for malignant neoplasm of colon (procedure) [code = 138729800] [facility] Future Scheduled Test 1972 00:00:00 Screening for malignant neoplasm of colon (procedure) [code = 012760636] [facility] Future Scheduled Test 1972 00:00:00 Screening for malignant neoplasm of colon (procedure) [code = 364343154] [facility] Future Scheduled Test 1972 00:00:00 Sigmoidoscopy [code = Sigmoidoscopy] [facility] Future Scheduled Test 1972 00:00:00 Screening for malignant neoplasm of breast (procedure) [code = 111566111] [facility] Future Scheduled Test 1972 00:00:00 CT Colonography (combo) [code = CT Colonography (combo)] [facility] Future Scheduled Test 1972 00:00:00 Screening for malignant neoplasm of colon (procedure) [code = 553837531] [facility] Future Scheduled Test 1972 00:00:00 Screening for malignant neoplasm of colon (procedure) [code = 994091498] [facility] Future Scheduled Test 1972 00:00:00 Screening for malignant neoplasm of colon (procedure) [code = 280152933] [facility] Future Scheduled Test 1972 00:00:00 Screening for malignant neoplasm of colon (procedure) [code = 842880886] [facility] Future Scheduled Test 1972 00:00:00 Sigmoidoscopy [code = Sigmoidoscopy] [facility] Goal Plan of Care Not e [code = 53608-2] Goal Plan of Care Not e [code = 91964-3] Goal Plan of Care Not e [code = 68048-4] Goal Plan of Care Not e [code = 13725-8] Goal Plan of Care Not e [code = 56901-5] Goal Plan of Care Not e [code = 88079-1] Goal Plan of Care Not e [code = 01201-1] Goal Plan of Care Not e [code = 85440-9] Goal Plan of Care Not e [code = 31125-1] Goal Plan of Care Not e [code = 44478-8] Goal Plan of Care Not e [code = 36823-1] Goal Plan of Care Not e [code = 17761-9] Goal Plan of Care Not e [code = 34745-0] Goal Plan of Care Not e [code = 69586-6] Goal Plan of Care Not e [code = 35655-1] Goal Plan of Care Not e [code = 51826-4] Goal Plan of Care Not e [code = 39835-8] Goal Plan of Care Not e [code = 95132-7] Goal Plan of Care Not e [code = 18293-0] Goal Plan of Care Not e [code = 79117-0] Goal Plan of Care Not e [code = 85573-9] Goal Plan of Care Not e [code = 81335-3] Goal Plan of Care Not e [code = 46289-9] Goal Plan of Care Not e [code = 85798-3] Goal Plan of Care Not e [code = 97188-6] Goal Plan of Care Not e [code = 21762-4] Goal Plan of Care Not e [code = 27528-2] Goal Plan of Care Not e [code = 90802-7] Goal Plan of Care Not e [code = 39695-6] Goal Plan of Care Not e [code = 41151-8] Goal Plan of Care Not e [code = 02548-9] Goal Plan of Care Not e [code = 35068-1] Goal Plan of Care Not e [code = 86729-5] Goal Plan of Care Not e [code = 11437-5] Goal Plan of Care Not e [code = 38638-0] Encounters Start Date/Time End Date/Time Encounter Type Admission Type Attending [facility] Facility Care Department Encounter ID Source 2023-09-07 10:11:[address] [facility] [id number] [facility] 2023-09-05 10:08:27 In[address]E OBREGON [address] [facility] [id number] [facility] 2023-09-05 10:05:12 Inpatient [address]LETTE OBREGON [facility]HUL [facility] [id number] [facility] 2023-09-04 04:51:[address] [facility] [id number] [facility] 2023-09-04 04:14:55 Inpatient PANKAJ PARRISH [facility] [id number] [facility] 2023-09-04 03:08:45 Inpatient PANKAJ PARRISH [facility] [id number] [facility] 2023-09-04 02:36:28 Inpatient PANKAJ PARRISH [facility] [id number] [facility] 2023-06-16 09:32:36 Inpatient AYDEE DICKENS [facility] [id number] [facility] 2023-06-16 09:32:09 Inpatient AYDEE DICKENS [facility] [id number] [facility] 2023-06-16 09:31:53 Inpatient AYDEE DICKENS [facility] [id number] [facility] 2023-06-14 07:46:02 Inpatient AYDEE DICKENS [facility] [id number] [facility] 2023-06-14 07:39:22 Inpatient AYDEE DICKENS [facility] [id number] [facility] 2023-06-14 06:38:38 Inpatient AYDEE DICKENS [facility] [id number] [facility] 2023-06-13 13:44:18 Inpatient MARIANELA MURPHY [facility] [id number] [facility] 2023-06-13 11:45:24 Inpatient AYDEE DICKENS [facility] [id number] [facility] 2023-05-08 11:21:00 Outpatient EL ADAM GARCIA [facility] Surgery [id number] [facility] 2023-04-01 14:26:29 Inpatient ER DEVORA THOMAS [facility] [id number] [facility] 2023-03-31 09:24:52 Inpatient ER MARIAH ALDRIDGE [facility] SLE [id number] [facility] 2021-05-20 18:48:04 Emergency [facility] [id number] [facility] 2021-05-20 12:43:40 Emergency [facility] [id number] [facility] 2024-08-10 06:02:28 2024-08-10 23:59:00 Outpatient [facility] [id number] [facility] 2024-08-10 05:24:00 2024-08-10 15:10:00 Emergency Brooklynn Paige Wendi Ornelas [facility] 1.84.114 350.1.13.70 8.2.7.2.686 [id number] [facility] 2024-08-10 05:24:00 2024-08-10 15:10:00 Emergency Emergency WENDI DICK [facility] General Medicine [id number] [facility] 2024-08-10 00:00:00 2024-08-10 06:02:27 Orders Only System, Provider Not In [facility] 1..114 350.1.13.70 8.2.7.2.686 [id number] Blade gonzalez [facility] 2024-04-14 11:30:00 2024-04-14 11:30:00 Outpatient GUSTAVO DELANEY [id number] [facility] 2024-04-02 20:43:00 2024-04-03 00:56:00 Emergency X MOHR, CHRISSY MOHR, CHRISSY [facility] [id number] [facility] 2024-04-02 20:43:00 2024-04-03 00:56:00 Emergency Chrissy Mohr [facility] 1.84.114 350.1.13.10 4.2.7.2.686 [id number] [facility] 2024-03-08 00:00:00 2024-03-08 00:00:00 Outpatient MD CYNTHIA MARLEY [id number] [facility] 2024-01-14 00:00:00 2024-02-20 18:26:15 Patient Secure Msg Doctor Unassigned, [place] [facility] 1.284.114 350.1.13.10 4.2.7.2.686 [id number] [facility] 2024-02-19 00:00:00 2024-02-19 00:00:00 Outpatient GUSTAVO DELANEY CY[facility]THIA [id number] [facility] 2024-02-16 10:15:00 2024-02-16 10:15:00 Outpatient MORALES BALL CYNTHIA CYNTHIA [id number] Cynthia Garcia 2024-01-13 00:00:00 2024-02-13 18:19:27 Patient Secure Msg Doctor Unassigned, [place] [facility] 1.2840.114 350.1.13.10 4.2.7.2.686 [id number] [facility] 2024-01-12 22:04:00 2024-01-13 00:00:00 Emergency X RADHA WYATT BRENT [facility] ERT [id number] [facility] 2024-01-12 22:04:00 2024-01-13 00:00:00 Emergency Radha Wyatt J [facility] 1.2840.114 350.1.13.10 4.2.7.2.686 [id number] [facility] 2024-01-12 00:00:00 2024-01-12 16:22:23 Transition of Care Gerardo Veronique Ne HOLTBubba RODRIGO BENAVIDES 1..840.114 350.1.13.10 4.2.7.2.686 [id number] [facility] 2024-01-09 16:11:00 2024-01-10 15:56:00 Outpatient X DARRICK ALTAMIRANO [facility] SHEA [id number] [facility] 2024-01-09 16:11:00 2024-01-10 15:56:00 Hospital Encounter Olena Del Castillo K Paige Khan, Mohammad A. [facility] 1.2840.114 350.1.13.10 4.2.7.2.686 [id number] [facility] 2023-12-17 00:00:00 2023-12-17 00:00:00 Transition of Care Jodi Berg BLAYNE BENAVIDES 1.2.840.114 350.1.13.10 4.2.7.2.686 [id number] [facility] 2023-12-14 13:34:00 2023-12-15 11:08:00 Outpatient X TAL BENAVIDEZ [facility] [id number] [facility] 2023-12-14 13:34:00 2023-12-15 11:08:00 Emergency Mj Bryan Jelani [facility] 1..840.114 350.1.13.10 4.2.7.2.686 [id number] [facility] 2023-12-07 00:00:00 2023-12-07 00:00:00 Outpatient GUSTAVO DELANEY [id number] Cynthia Garcia 2023-12-02 13:05:00 2023-12-03 19:00:00 Outpatient X MOJGAN [facility] [id number] [facility] 2023-12-02 13:05:00 2023-12-03 19:00:00 Hospital Encounter [facility] 1..840.114 350.1.13.10 4.2.7.2.686 [id number] [facility] 2023-12-01 00:00:00 2023-12-01 10:40:26 Transition of Care Madeline Mckinley 1.2.840.114 350.1.13.10 4.2.7.2.686 [id number] [facility] 2023-11-30 00:00:00 2023-11-30 10:41:56 Transition of Care Madeline [place] 1.2.840.114 350.1.13.10 4.2.7.2.686 [id number] [facility] 2023-11-21 21:12:00 2023-11-28 16:01:00 Inpatient X MADELINE PIERRE [facility] [id number] [facility] 2023-11-21 21:12:00 2023-11-28 16:01:00 Hospital Encounter Madeline Pierre Donnell Khan, Cr Mcdermott, Ivis Rodriguez, Ryder Joshi [facility] 1.2.840.114 350.1.13.10 4.2.7.2.686 [id number] [facility] 2023-11-26 14:15:00 2023-11-26 14:15:00 Outpatient AARON LEDESMA [id number] Cynthia [facility] 2023-11-23 13:45:00 2023-11-23 14:45:00 Surgery Cris Molina [facility] 1.2.840.114 350.1.13.10 4.2.7.2.686 [id number] [facility] 2023-11-18 00:00:00 2023-11-18 00:00:00 Outpatient EFRA BABCOCK [id number] Cynthia [facility] 2023-11-15 00:00:00 2023-11-15 00:00:00 Outpatient CYNTHIA MTZ [id number] Cynthia [facility] 2023-11-15 00:00:00 2023-11-15 00:00:00 Outpatient CYNTHIA MTZ [id number] Cynthia [facility] 2023-11-15 00:00:00 2023-11-15 00:00:00 Outpatient CYNTHIA MTZ [id number] Cynthia [facility] 2023-11-12 15:15:00 2023-11-12 15:15:00 Outpatient GUSTAVO DELANEY CYNTHIA MTZ [id number] [facility] 2023-11-12 00:00:00 2023-11-12 00:00:00 Outpatient CYNTHIA MTZ [id number] Cynthia [facility] 2023-11-10 09:30:00 2023-11-10 09:30:00 Outpatient MIJARESJESUS ALBERTO PATELSADAF MTZ [id number] Cynthia [facility] 2023-11-09 00:00:00 2023-11-09 00:00:00 Outpatient GUSTAVO DELANEY CYNTHIA MTZ [id number] Cynthia [facility] 2023-11-09 00:00:00 2023-11-09 00:00:00 Outpatient MIJARESMYLA PATEL CYNTHIA MTZ [id number] Cynthia [facility] 2023-11-07 17:51:00 2023-11-07 22:04:00 Emergency ER JUANY [facility] [id number] [facility] 2023-11-07 17:51:00 2023-11-07 22:04:00 emergency [facility] [id number] 2023-11-05 00:00:00 2023-11-05 00:00:00 Outpatient PROVIDERTIFFANY [id number] Cynthia [facility] 2023-11-03 00:00:00 2023-11-03 00:00:00 Outpatient CYNTHIA MTZ [id number] Cynthia [facility] 2023-10-29 00:00:00 2023-10-29 00:00:00 Outpatient GUSTAVO DELANEY [id number] [facility] 2023-10-26 00:00:00 2023-10-26 00:00:00 Outpatient EFRA BABCOCK [id number] [facility] 2023-10-22 00:00:00 2023-10-22 00:00:00 Outpatient GUSTAVO DELANEY [id number] [facility] 2023-10-16 11:10:00 2023-10-16 11:10:00 Outpatient ABDOULAYE SIDDHARTH CYNTHIA MTZ [id number] [facility] 2023-10-15 00:00:00 2023-10-15 00:00:00 Outpatient MD CYNTHIA MARLEY [id number] Cynthia Seybold 2023-10-15 00:00:00 2023-10-15 00:00:00 Outpatient GUILLENMARGOT PIERCE CYNTHIA MTZ [id number] Cynthia Seybold 2023-10-15 00:00:00 2023-10-15 00:00:00 Outpatient MINDYMARGOT CYNTHIA MTZ [id number] [facility] 2023-10-06 10:45:00 2023-10-06 10:45:00 Outpatient SARAI JULES [id number] [facility] 2023-10-05 11:30:00 2023-10-05 11:30:00 Outpatient GUSTAVO DELANEY [id number] [facility] 2023-10-01 00:00:00 2023-10-01 00:00:00 Outpatient PREGUSTAVO VILLANUEVA [id number] Cynthia Seybold 2023-09-30 14:15:00 2023-09-30 14:15:00 Outpatient PREZAGUSTAVO Alexander [id number] [facility] 2023-09-24 00:00:00 2023-09-24 00:00:00 Outpatient PREZAGUSTAVO Alexander [id number] Cynthia Seybold 2023-09-23 00:00:00 2023-09-23 00:00:00 Outpatient TIFFANY PUENTE [id number] Cynthia Seybold 2023-09-22 00:00:00 2023-09-22 00:00:00 Outpatient PREGUSTAVO VILLANUEVA [id number] Cynthia Seybold 2023-09-22 00:00:00 2023-09-22 00:00:00 Outpatient MINDYMARGOT CYNTHIA MTZ [id number] Cynthia Seybold 2023-09-16 00:00:00 2023-09-16 00:00:00 Outpatient GUSTAVO DELANEY CYNTHIA [id number] Cynthia [facility] 2023-09-16 00:00:00 2023-09-16 00:00:00 Outpatient GUSTAVO DELANEY CYNTHIA [id number] Cynthia [facility] 2023-09-16 00:00:00 2023-09-16 00:00:00 Outpatient GUSTAVO DELANEY CYNTHIA [id number] Cynthia [facility] 2023-09-14 00:00:00 2023-09-14 00:00:00 Outpatient MARGOT GUILLEN CYNTHIA MTZ [id number] Cynthia [facility] 2023-09-14 00:00:00 2023-09-14 00:00:00 Outpatient MARGOT GUILLEN CYNTHIA MTZ [id number] [facility] 2023-09-11 11:00:00 2023-09-11 11:00:00 Outpatient BJ YONATAN CYNTHIA MTZ [id number] [facility] 2023-09-09 00:00:00 2023-09-09 00:00:00 Outpatient CYNTHIA MTZ [id number] [facility] 2023-09-04 00:14:00 2023-09-08 10:51:00 Inpatient ER EDWARD FERRER Neurosurger y [id number] [facility] 2023-09-04 00:14:00 2023-09-08 10:51:00 Hospital Encounter [place] Rahul Khan, Maria Hoffman, Maria [facility] [id number] [facility] 2023-09-04 00:14:00 2023-09-08 10:51:00 Hospital Encounter ER [place] Rahul Khan, Maria Hoffman, Maria [facility] [id number] [facility] 2023-09-07 18:41:43 2023-09-07 18:41:43 Outpatient EDWARD MANE [facility] [id number] [facility] 2023-09-03 20:52:00 2023-09-03 23:44:00 Emergency ER CATANESCU, JUANY [facility] [id number] [facility] 2023-09-03 20:52:00 2023-09-03 23:44:00 emergency [facility] [id number] 2023-09-02 00:00:00 2023-09-02 00:00:00 Outpatient TIFFANY PUENTE [id number] Cynthia [facility] 2023-09-01 15:30:00 2023-09-01 15:30:00 Outpatient DEMETRIUS TOBAR [id number] Cynthia [facility] 2023-08-19 00:00:00 2023-08-19 00:00:[address] [facility] [id number] [facility] 2023-08-13 00:00:00 2023-08-13 13:44:39 Orders Only Quin Scruggs [facility] [id number] [facility] 2023-08-12 13:49:00 2023-08-12 16:12:00 Emergency X SINGER MJ [facility] ERT [id number] [facility] 2023-08-12 13:49:00 2023-08-12 16:12:00 Emergency Mj Bryan [facility] 1.2.840.114 350.1.13.10 4.2.7.2.686 [id number] [facility] 2023-06-15 00:00:00 2023-06-18 10:20:39 Orders Only Provider, Not In System [facility] [id number] [facility] 2023-06-13 03:43:00 2023-06-16 19:45:00 Inpatient ER AYDEE GO [facility] Internal Med [id number] [facility] 2023-06-13 03:43:00 2023-06-16 19:45:00 Hospital Encounter ER Marianela Burgess Sahar [facility] [id number] [facility] 2023-06-13 16:30:06 2023-06-13 16:30:06 Outpatient AYDEE DICKENS [facility] [id number] [facility] 2023-06-13 00:00:00 2023-06-13 00:00:[address] [facility] [id number] [facility] 2023-06-13 00:00:00 2023-06-13 00:00:00 Travel [facility] [id number] [facility] 2023-06-12 00:00:00 2023-06-12 00:00:[address] [facility] [id number] [facility] 2023-05-28 06:45:00 2023-06-04 17:36:00 Inpatient NICOLETTE ADAM GARCIA [facility] Surgery [id number] [facility] 2023-05-28 06:45:00 2023-06-04 17:36:00 Hospital Encounter Adam Brantley [facility] [id number] [facility] 2023-06-01 09:10:00 2023-06-01 13:00:00 Anesthesia Event Harry Newsome Mujtaba [facility] [id number] [facility] 2023-06-01 09:00:00 2023-06-01 11:30:[address] [facility] [id number] [facility] 2023-06-01 09:47:57 2023-06-01 09:47:[address] [facility] [id number] [facility] 2023-06-01 09:40:34 2023-06-01 09:40:[address] [facility] [id number] [facility] 2023-05-31 09:25:55 2023-05-31 23:59:00 [facility] [id number] [facility] 2023-05-31 09:00:00 2023-05-31 23:59:00 Hospital Encounter Adam Garcia [facility] [id number] [facility] 2023-05-28 18:15:29 2023-05-28 18:15:29 Outpatient ADAM BRANTLEY [facility] [id number] [facility] 2023-05-28 08:30:00 2023-05-28 11:54:00 Anesthesia Event Yue Bui [facility] [id number] [facility] 2023-05-28 11:41:14 2023-05-28 11:41:14 [facility] [id number] 2023-05-28 08:30:00 2023-05-28 11:00:[address] [facility] [id number] [facility] 2023-05-28 10:00:47 2023-05-28 10:00:[address] [facility] [id number] [facility] 2023-05-28 00:00:00 2023-05-28 00:00:00 Travel [facility] [id number] [facility] 2023-05-26 09:00:00 2023-05-26 09:00:00 Hospital Encounter Adam Garcia [facility] [id number] [facility] 2023-05-26 00:00:00 2023-05-26 00:00:00 Outpatient ADAM BRANTLEY [facility] SLE [id number] [facility] 2023-05-26 00:00:00 2023-05-26 00:00:00 Outpatient NICOLETTE LIPSCOMB [facility] [id number] [facility] 2023-05-26 00:00:00 2023-05-26 00:00:00 Travel [facility] [id number] [facility] 2023-05-13 11:43:03 2023-05-13 11:43:[address] [facility] [id number] Adria Martínez 2023-05-12 00:00:00 2023-05-12 00:00:00 Orders Only Adam Garcia [facility] [id number] [facility] 2023-05-08 14:11:21 2023-05-08 14:11:[address] [facility] [id number] Adria Martínez 2023-03-29 19:25:00 2023-04-02 20:48:00 Inpatient ER DEVORA, MARJORIENALINI [facility] Neurology [id number] [facility] 2023-03-29 19:25:00 2023-04-02 20:48:00 Hospital Encounter ER Connie Davey Shireen Kulkarni, Thomas Z [facility] [id number] [facility] 2023-03-31 08:32:56 2023-03-31 00:00:00 Inpatient ER MARIAH ALDRIDGE SLERigoberto [facility] [id number] [facility] 2023-03-30 10:24:12 2023-03-30 23:59:00 Outpatient ER CONNIE DAVEY [facility] [id number] [facility] 2023-03-30 09:40:00 2023-03-30 23:59:00 Hospital Encounter Connie Davey [facility] [id number] [facility] 2023-03-30 13:46:20 2023-03-30 13:46:20 Outpatient ER MARIAH ALDRIDGE SLERigoberto [facility] [id number] [facility] 2023-03-30 13:46:14 2023-03-30 13:46:14 Outpatient ER MARIAH ALDRIDGE SLERigoberto [facility] [id number] [facility] 2023-03-30 10:24:04 2023-03-30 10:24:04 Outpatient ER CONNIE DAVEY [facility] [id number] [facility] 2023-03-30 00:00:00 2023-03-30 00:00:[address] [facility] [id number] [facility] 2023-03-30 00:00:00 2023-03-30 00:00:00 Travel [facility] [id number] [facility] 2022-12-11 08:56:00 2022-12-11 15:29:00 Emergency X Alfonso ALVARADO [facility] [id number] [facility] 2022-12-11 08:56:00 2022-12-11 15:29:00 Emergency Alfonso Alvarado [facility] 1.2.840.114 350.1.13.10 4.2.7.2.686 [id number] [facility] 2022-11-17 17:25:00 2022-11-18 01:19:00 Emergency X RITCHIE WARREN [facility] ERT [id number] [facility] 2022-11-17 17:25:00 2022-11-18 01:19:00 Emergency Ritchie Warren [facility] 1.2.840.114 350.1.13.10 4.2.7.2.686 [id number] [facility] 2022-08-28 00:00:00 2022-08-28 00:00:00 Patient Outreach Margot Beckman 1.2.840.114 350.1.13.10 4.2.7.2.686 [id number] [facility] 2022-08-20 00:00:00 2022-08-20 00:00:00 Patient Outreach Margot Beckman 1.2.840.114 350.1.13.10 4.2.7.2.686 [id number] [facility] 2022-08-02 17:30:00 2022-08-03 14:29:00 Outpatient ER PARRISH WHEATLEY [facility] Neurology [id number] [facility] 2022-08-02 17:30:00 2022-08-03 14:29:00 Hospital Encounter ER Halima Mendoza Kinjal M Ibe, Chimkama Ngozi Cynthia [facility] [id number] [facility] 2022-08-03 00:00:00 2022-08-03 00:00:[address] [facility] [id number] [facility] 2022-08-02 00:00:00 2022-08-02 00:00:00 Travel [facility] [id number] [facility] 2022-07-31 11:42:00 2022-08-01 21:48:00 Inpatient X SERGIOBENJAMÍN DAMI [facility] [id number] [facility] 2022-07-31 11:42:00 2022-08-01 21:48:00 Hospital Encounter Megan Rondon Dami Lowry [facility] 1.2.840.114 350.1.13.10 4.2.7.2.686 [id number] [facility] 2022-08-01 00:00:00 2022-08-01 00:00:00 Transition of Care Maria Teresa Nicole 1.2.840.114 350.1.13.10 4.2.7.2.686 [id number] [facility] 2022-07-28 14:41:38 2022-07-28 14:41:[address] [facility] 9 Adria Martínez 2022-07-28 00:00:00 2022-07-28 00:00:00 Outpatient Visit [id number] 2022-07-24 13:24:40 2022-07-24 13:24:[address] [facility] [id number] Adria Galan Mauricio 2022-05-23 14:51:01 2022-05-23 14:51:[address] [facility] [id number] Adria Galan Mauricio 2022-05-23 00:00:00 2022-05-23 00:00:00 Outpatient Visit [id number] 2022-05-04 20:22:00 2022-05-08 14:44:00 Outpatient X ANNEMARIE [facility] [id number] [facility] 2022-05-04 20:22:00 2022-05-08 14:44:00 Emergency BrinerBrandyn Sharpe [facility] 1.2.840.114 350.1.13.10 4.2.7.2.686 [id number] [facility] 2022-04-13 13:06:00 2022-04-15 15:00:00 Inpatient X CONRAD [facility] [id number] [facility] 2022-04-13 13:06:00 2022-04-15 15:00:00 Hospital Encounter Sapna Vargas Muhammad Zeeshan [facility] 1.2.840.114 350.1.13.10 4.2.7.2.686 [id number] [facility] 2022-02-19 10:20:00 2022-02-19 10:30:00 Imm/Inj Visit [facility] [place] Jose Santiago [facility] 1.2.840.114 350.1.13.10 4.2.7.2.686 [id number] [facility] 2022-02-19 10:20:00 2022-02-19 10:20:00 Outpatient R JOSE PAK [facility] [id number] [facility] 2021-11-23 15:07:00 2021-11-23 17:03:00 Emergency X WILLIAMS VIRK [facility] ERT [id number] [facility] 2021-11-23 15:07:00 2021-11-23 17:03:00 Emergency Megan Rondon Folusho F [facility] 1..114 350.1.13.10 4.2.7.2.686 [id number] [facility] 2021-11-21 09:40:00 2021-11-21 09:40:00 Outpatient R [facility] [id number] [facility] 2021-05-24 09:30:00 2021-05-24 09:30:00 Outpatient R JOSE PAK [facility] [id number] [facility] 2021-05-24 08:47:51 2021-05-24 08:57:51 Imm/Inj Visit Vaccine, [place] Collettetristan Kabapipo Jose [facility] 1.114 350.1.13.10 4.2.7.2.686 [id number] [facility] 2021-05-03 09:40:00 2021-05-03 09:59:35 Outpatient R JOSE PAK [facility] [id number] [facility] 2021-05-03 09:17:43 2021-05-03 09:59:35 Imm/Inj Visit Vaccine, [place] Dangelo Pak [facility] 1.114 350.1.13.10 4.2.7.2.686 [id number] [facility] 2021-04-16 00:00:00 2021-04-16 00:00:00 Orders Only Doctor Unassigned, [place] [facility] 1..114 350.1.13.10 4.2.7.2.686 [id number] [facility] 2021-03-17 00:00:00 2021-03-17 00:00:00 Telephone Miky Nava [facility] 1..114 350.1.13.10 4.2.7.2.686 [id number] [facility] 2021-03-16 20:08:00 2021-03-16 23:24:00 Emergency Fabrice Chakraborty [facility] 1.2.840.114 350.1.13.10 4.2.7.2.686 [id number] [facility] 2021-03-14 18:59:34 2021-03-14 20:19:13 Urgent Care Jermaine Desouzajolly Unknown, Attending [facility] 1.2.840.114 350.1.13.10 4.2.7.2.686 [id number] [facility] 2021-03-14 19:00:00 2021-03-14 19:00:00 Outpatient R UNKNOWN, ATTENDING [facility] [id number] [facility] 2021-02-19 10:49:00 2021-02-19 14:48:00 Emergency Estefania Monroy [facility] 1.2.840.114 350.1.13.10 4.2.7.2.686 [id number] [facility] 2019-03-09 00:00:00 2019-03-09 00:00:[address] [facility] 1.2.840.114 350.1.13.10 4.2.7.2.686 [id number] 2019-03-09 00:00:00 2019-03-09 00:00:[address] [facility] 1.2.840.114 350.1.13.10 4.2.7.2.686 [id number] [facility] Results Test Description Test Time Test Comments Results [id number] 02:35:03* Test Item Value Reference Range Interpretation Comme nts NT-proBNP (test code = 39925-5) 2090 pg/mL <=125 H LYNDSAY (test code = LYNDSAY) Positive: Heart Failure Likely Lab Interpretation (test code = 49739-8) Abnormal [facility] Metabolic Panel (NA, K, CL, CO2, GLUCOSE, BUN, CREATININE, CA)2024-04-03 02:26:01* Test Item Value Reference Range Interpretation Comme nts NA (test code = 5367433699) 136 mmol/L 135-145 K (test code = 5121968409) 3.2 mmol/L 3.5-5.0 L CL (test code = 6977551071) 101 mmol/L 98-108 CO2 TOTAL (test code = 3242842010) 23 mmol/L 23-31 AGAP (test code = 3936930033) 12 2-16 BUN (test code = 9040700907) 4 mg/dL 7-23 L GLUCOSE (test code = 1747713204) 165 mg/dL 70-110 H CREATININE (test code = 2160-0) 0.67 mg/dL 0.50-1.04 CALCIUM (test code = 5469561453) 8.5 mg/dL 8.6-10.6 L eGFR (test code = 11751-4) 105.3 mL/min/1.73m2 CKD-EPI eGFR (2020). Assuming creatinine has been stable day-to-day for at least three months, the eGFR indicates Category G1 (>= 90 mL/min/1.73 m2) Lab Interpretation (test code = 00325-6) Abnormal [facility] with [id number] 02:19:04* Test Item Value Reference Range Interpretation [...] g/dL 31.6-35.1 L RDW-SD (test code = 01826-4) 53.9 fL 39.0-49.9 H RDW-CV (test code = 788-0) 18.2 % 12.0-15.5 H PLT (test code = 777-3) 458 166-358 H MPV (test code = 60606-2) 8.6 fL 9.5-12.9 L NRBC/100 WBC (test code = 0186659634) 0.0 0.0-10.0 NRBC x10^3 (test code = 1190595865) See_Comment [Automated messa ge] The system which generated this result transmitted reference range: 10*3/?L. The reference range was not used to interpret this result as normal/abnormal. GRAN MAT (NEUT) % (test code = 770-8) 62.8 % IMM GRAN % (test code = 2634318365) 0.40 % LYMPH % (test code = 736-9) 28.0 % MONO % (test code = 5905-5) 6.5 % EOS % (test code = 713-8) 1.3 % BASO % (test code = 706-2) 1.0 % GRAN MAT x10^3(ANC) (test code = 7409351179) 4.36 10*3/uL 1.88-7.09 IMM GRAN x10^3 (test code = 7546871077) 0.03 10*3/uL 0.00-0.06 LYMPH x10^3 (test code = 731-0) 1.94 10*3/uL 1.32-3.29 MONO x10^3 (test code = 742-7) 0.45 10*3/uL 0.33-0.92 EOS x10^3 (test code = 711-2) 0.09 10*3/uL 0.03-0.39 BASO x10^3 (test code = 704-7) 0.07 10*3/uL 0.01-0.07 Lab Interpretation (test code = 23916-2) Abnormal [facility] Acid Whole [id number] 02:05:20* Test Item Value Reference Range Interpretation Comme nts LACTIC ACID (test code = 4768508017) 2.61 mmol/L 0.50-2.20 H Lab Interpretation (test cod e = 82522-7) [facility]normal [facility] [id number] 04:25:23* Test Item Value Reference Range Interpretation Comme nts TROPONIN I (test code = 8457174656) 0.004 ng/mL <=0.034 LYNDSAY (test code = [...] of biotin. Lab Interpretation (test code = 45189-9) Normal [facility]. Metabolic Panel (60157)2024-01-13 04:13:41* Test Item Value Reference Range Interpretation Comme nts NA (test code = 0843034773) 140 mmol/L 135-145 K (test code = 4026699156) 3.7 mmol/L 3.5-5.0 CL (test code = 2063485610) 103 mmol/L 98-108 CO2 TOTAL (test code = 1519037643) 25 mmol/L 23-31 AGAP (test code = 1984579326) 12 2-16 BUN (test code = 2655124625) 12 mg/dL 7-23 GLUCOSE (test code = 6472778357) 143 mg/dL 70-110 H CREATININE (test code = 2160-0) 0.91 mg/dL 0.50-1.04 TOTAL BILI (test code = 2606568217) 0.4 mg/dL 0.1-1.1 CALCIUM (test code = 8106683278) 9.0 mg/dL 8.6-10.6 T PROTEIN (test code = 5132273315) 7.7 g/dL 6.3-8.2 ALBUMIN (test code = 1975108556) 4.2 g/dL 3.5-5.0 ALK PHOS (test code = 8687328690) 93 U/L 34-122 ALTv (test code = 1742-6) 9 U/L 5-35 AST(SGOT) (test code = 3876103285) 18 U/L 13-40 eGFR (test code = 71117-5) 76.5 mL/min/1.73m2 CKD-EPI eGFR (2020). Assuming creatinine has been stable day-to-day for at least three months, the eGFR indicates Category G2 (60 - 89 mL/min/1.73 m2) Lab Interpretation (test code = 40634-2) Abnormal [facility] with [id number] 03:58:19* Test Item Value Reference Range Interpretation [...] g/dL 31.6-35.1 L RDW-SD (test code = 77096-2) 59.0 fL 39.0-49.9 H RDW-CV (test code = 788-0) 18.7 % 12.0-15.5 H PLT (test code = 777-3) 394 166-358 H MPV (test code = 89233-3) 8.5 fL 9.5-12.9 L NRBC/100 WBC (test code = 3769546424) 0.0 0.0-10.0 NRBC x10^3 (test code = 6668150893) See_Comment [Automated messa ge] The system which generated this result transmitted reference range: 10*3/?L. The reference range was not used to interpret this result as normal/abnormal. GRAN MAT (NEUT) % (test code = 770-8) 60.6 % IMM GRAN % (test code = 4803446869) 1.40 % LYMPH % (test code = 736-9) 26.9 % MONO % (test code = 5905-5) 8.7 % EOS % (test code = 713-8) 1.8 % BASO % (test code = 706-2) 0.6 % GRAN MAT x10^3(ANC) (test code = 8663706015) 5.14 10*3/uL 1.88-7.09 IMM GRAN x10^3 (test code = 8374767571) 0.12 10*3/uL 0.00-0.06 H LYMPH x10^3 (test code = 731-0) 2.28 10*3/uL 1.32-3.29 MONO x10^3 (test code = 742-7) 0.74 10*3/uL 0.33-0.92 EOS x10^3 (test code = 711-2) 0.15 10*3/uL 0.03-0.39 BASO x10^3 (test code = 704-7) 0.05 10*3/uL 0.01-0.07 Lab Interpretation (test code = 12779-8) [facility]:40:03* Test Item Value Reference Range Interpretation Comme nts Height (test code = 5258528189) 62 in Weight (test code = 3721368392) 200 lbs Systolic BP (test code = 2047015458) 90 mmHg Diastolic BP (test code = 2513180169) 66 mmHg Heart Rate (test code = 1048914278) 69 bpm BSA (test code = 9717680043) 1.91 m2 LVOT diameter (test code = 7164593021) 2.13 cm LVOT area (test code = 9262687726) 3.60 cm2 LA size (test code = 3716941432) 3.5 cm LAV(MOD-sp4) (test code = 3891568056) 55.70 mL E wave decelartion time (test code = 7943980046) 0.12 s MV stenosis pressure 1/2 time (test code = 1446069505) 35.0 ms MV Peak A Evette (test code = 3036584540) 117.0 cm/s MV Peak E Evette (test code = 1775673066) 94.3 cm/s E/A ratio (test code = 8840656507) 0.81 ratio MV E/e' septal (test code = 9675989715) 10.2 cm/s LVOT stroke volume (test code = 5878429884) 59.50 cm3 LVOT peak evette (test code = 8332084545) 99.8 cm/s LVOT mn grad (test code = 3949069870) 1.9 mmHg AV LVOT peak gradient (test code = 5054132296) 4.0 mmHg LVOT peak VTI (test code = 4082878992) 16.7 cm LV V1 mean (test code = 4655837461) 64.40 cm/s Aortic valve mean velocity (test code = 0981925813) 155.3 cm/s Ao peak evette (test code = 6861810623) 222.6 cm/s Ao VTI (test code = 8551160066) 33.6 cm AV area by cont VTI (test code = 9660148517) 1.8 cm2 AV area peak evette (test code = 9263509779) 1.6 cm2 Ao max PG (test code = 3496348354) 19.80 mm[Hg] AV peak gradient (test code = 1035832092) 19.8 mmHg AV valve area (test code = 7501437367) 1.77 cm2 AV mean gradient (test code = 2060359797) 10.6 mmHg AV regurgitation pressure 1/2 time (test code = 5737559129) 651.6 ms AI dec slope (test code = 9741051339) 180.60 cm/s2 AI max evette (test code = 7732808204) 401.80 cm/s AI max PG (test code = 1770819171) 64.60 mm[Hg] LVIDD (test code = 4839095132) 4.90 cm Left Ventricular End Diastolic Volume by Teichholz Method (test code = 1221255) 114.6 mL IVS (test code = 3301361130) 1.17 cm Interventricular Septum Diastolic Thickness by 2D (test code = 1746646) 1.17 cm LVPWD (test code = 9440331320) 1.17 cm PW (test code = 2164365425) 1.17 cm 0.6-1.1 EF(Teich) (test code = 1641324158) 20.70 % LVIDS (test code = 0584783833) 4.50 cm Left Ventricular End Systolic Volume by Teichholz Method (test code = 1270781) 90.9 mL FS (test code = 6970819136) 9 % EF - 2D (test code = 13887236) 20.70 % Radiology Study observation (narrative) (test code = 54805-9) LYNDSAY (test code = LYNDSAY) ?Left?Ventricle: Left [...] mL of Optison ultrasound enhancing agent used. [facility]villeL[facility] Acid Whole Oxjpu2087-19-78 02:02:28* Test Item Value Reference Range Interpretation Comme nts LACTIC ACID (test code = 4413489494) 1.36 mmol/L 0.50-2.20 Lab Interpretation (test cod e = 02496-9) Normal [facility]villeCT CHEST PULMONARY [id number] 01:16:45CTA CHEST WITH IV CONTRAST ORDERING PHYSICIAN: [...] adenoma. ACDF hardware in the lower cervical spine.[facility]villeXR CHEST 1 [id number] 23:07:58Exam: Chest (1 View), 01/09/2024 4:15 PM. Ordering Physician: OLENA DEL CASTILLO. History: Chest Pain. Technique: One view of the chest. Comparison: 12/14/2023. Findings: Cardiac silhouette is mildly enlarged. There is no pneumothorax. There isno consolidation or pleural effusion. Pleural and diaphragmatic contoursare normal. Calcified granuloma is seen in the left upper lobe. Changes ofanterior cervical discectomy and fusion are seen.[facility]villeTROPONIN [id number] 22:51:19* Test Item Value Reference Range Interpretation Comme nts TROPONIN I (test code = 4519120197) 0.006 ng/mL <=0.034 LYNDSAY (test code = [...] of biotin. Lab Interpretation (test code = 31308-0) Normal [facility]villeN-TERMINAL DCN-[id number] 22:48:38* Test Item Value Reference Range Interpretation Comme nts NT-proBNP (test code = 67381-6) 877 pg/mL <=125 LYNDSAY (test code = LYNDSAY) Result Indeterminate-Consid er causes of NT-proBNP elevation other than Heart failure such as acute coronary syndrome, pulmonary embolism, pulmonary hypertension, sepsis, stroke, and renal dysfunction. Lab Interpretation (test code = 59712-4) Abnormal [facility] StephenvilleCOMP. METABOLIC PANEL (58083)2024-01-09 22:42:20* Test Item Value Reference Range Interpretation Comme nts NA (test code = 8210244045) 137 mmol/L 135-145 K (test code = 9102900133) 3.8 mmol/L 3.5-5.0 CL (test code = 5108371347) 104 mmol/L 98-108 CO2 TOTAL (test code = 1349880906) 25 mmol/L 23-31 AGAP (test code = 1816132969) 8 2-16 BUN (test code = 8055486456) 7 mg/dL 7-23 GLUCOSE (test code = 6959745153) 96 mg/dL 70-110 CREATININE (test code = 2160-0) 0.60 mg/dL 0.50-1.04 TOTAL BILI (test code = 3755727860) 0.4 mg/dL 0.1-1.1 CALCIUM (test code = 5633866921) 8.7 mg/dL 8.6-10.6 T PROTEIN (test code = 5320834448) 7.0 g/dL 6.3-8.2 ALBUMIN (test code = 2159216771) 3.9 g/dL 3.5-5.0 ALK PHOS (test code = 4764739889) 101 U/L 34-122 ALTv (test code = 1742-6) 7 U/L 5-35 AST(SGOT) (test code = 5197929434) 20 U/L 13-40 eGFR (test code = 91409-3) 108.8 mL/min/1.73m2 CKD-EPI eGFR (20 21). Assuming creatinine has been stable day-to-day for at least three months, the eGFR indicates Category G1 (>= 90 mL/min/1.73 m2) [facility]villeD-MQLFP9284-66-52 22:28:57* Test Item Value Reference Range Interpretation Comments D-DIMER (test code = 9767644716) 0.87 See_Comment H [Automated message] The system [...] a diagnosis. Lab Interpretation (test code = 62102-9) Abnormal [facility] WITH [id number] 22:09:01* Test Item Value Reference Range Interpretation [...] g/dL 31.6-35.1 L RDW-SD (test code = 79697-6) 58.1 fL 39.0-49.9 H RDW-CV (test code = 788-0) 18.6 % 12.0-15.5 H PLT (test code = 777-3) 312 166-358 MPV (test code = 28164-4) 8.3 fL 9.5-12.9 L NRBC/100 WBC (test code = 3728178320) 0.0 0.0-10.0 NRBC x10^3 (test code = 2436202277) See_Comment [Automated messa ge] The system which generated this result transmitted reference range: 10*3/?L. The reference range was not used to interpret this result as normal/abnormal. GRAN MAT (NEUT) % (test code = 770-8) 60.1 % IMM GRAN % (test code = 5849962060) 0.70 % LYMPH % (test code = 736-9) 27.3 % MONO % (test code = 5905-5) 10.1 % EOS % (test code = 713-8) 1.2 % BASO % (test code = 706-2) 0.6 % GRAN MAT x10^3(ANC) (test code = 2046379620) 5.12 10*3/uL 1.88-7.09 IMM GRAN x10^3 (test code = 7203500580) 0.06 10*3/uL 0.00-0.06 LYMPH x10^3 (test code = 731-0) 2.33 10*3/uL 1.32-3.29 MONO x10^3 (test code = 742-7) 0.86 10*3/uL 0.33-0.92 EOS x10^3 (test code = 711-2) 0.10 10*3/uL 0.03-0.39 BASO x10^3 (test code = 704-7) 0.05 10*3/uL 0.01-0.07 Lab Interpretation (test code = 63629-2) Abnormal [facility] GLUCOSE (AUTOMATED)2023-12-15 12:45:21* Test Item Value Reference Range Interpretation Comme nts POCT GLU (test code = 7978430094) 144 mg/dL 70-110 H Lab Interpretation (test cod e = 57365-3) Abnormal [facility] StephenvilleThyroid Stimulating Scsllid9618-36-26 01:46:59 * Test Item Value Reference Range Interpretation Comme nts TSH (test code = 4633234092) 1.14 0.45-4.70 Lab Interpretation (test cod e = 48877-1) Normal [facility] StephenvilleFR [id number] 01:33:00* Test Item Value Reference Range Interpretation Comme nts FREE T3 (test code = 3469183275) 3.68 pg/mL 2.77-5.27 Lab Interpretation (test cod e = 35127-8) Normal [facility] GLUCOSE (AUTOMATED)2023-12-15 00:57:48* Test Item Value Reference Range Interpretation Comme nts POCT GLU (test code = 9673341492) 131 mg/dL 70-110 H Lab Interpretation (test cod e = 12910-8) Abnormal [facility] StephenvilleTroponin [id number] 21:45:52* Test Item Value Reference Range Interpretation Comme nts TROPONIN I (test code = 8723719421) 0.009 ng/mL <=0.034 LYNDSAY (test code = [...] of biotin. Lab Interpretation (test code = 77675-1) Normal [facility] StephenvilleComp. Metabolic Panel (85195)2023-12-14 20:19:49* Test Item Value Reference Range Interpretation Comme nts NA (test code = 6808538808) 138 mmol/L 135-145 K (test code = 8743998981) 3.5 mmol/L 3.5-5.0 CL (test code = 9079331893) 108 mmol/L 98-108 CO2 TOTAL (test code = 7347698998) 24 mmol/L 23-31 AGAP (test code = 0804150510) 6 2-16 BUN (test code = 9665762650) 7 mg/dL 7-23 GLUCOSE (test code = 2256697122) 96 mg/dL 70-110 CREATININE (test code = 2160-0) 0.51 mg/dL 0.50-1.04 TOTAL BILI (test code = 5194213479) 0.4 mg/dL 0.1-1.1 CALCIUM (test code = 7988082040) 8.6 mg/dL 8.6-10.6 T PROTEIN (test code = 3140816612) 6.8 g/dL 6.3-8.2 ALBUMIN (test code = 7976944060) 3.8 g/dL 3.5-5.0 ALK PHOS (test code = 6578579839) 107 U/L 34-122 ALTv (test code = 1742-6) 13 U/L 5-35 AST(SGOT) (test code = 0562155339) 28 U/L 13-40 eGFR (test code = 42920-1) 113.2 mL/min/1.73m2 CKD-EPI eGFR (20 21). Assuming creatinine has been stable day-to-day for at least three months, the eGFR indicates Category G1 (>= 90 mL/min/1.73 m2) [facility]villeTroponin [id number] 20:15:27* Test Item Value Reference Range Interpretation Comme nts TROPONIN I (test code = 3905353746) 0.009 ng/mL <=0.034 LYNDSAY (test code = [...] of biotin. Lab Interpretation (test code = 75784-5) Normal [facility] StephenvilleN-Terminal Wuz-Bko4503-72-27 20:12:51* Test Item Value Reference Range Interpretation Comme nts NT-proBNP (test code = 31706-2) 2250 pg/mL <=125 H LYNDSAY (test code = LYNDSAY) Positive: Heart Failure Likely Lab Interpretation (test code = 56703-4) Abnormal [facility]villeXR CHEST 1 [id number] 20:00:17EXAM: XR CHEST 1 VW COMPARISON: 12/02/2023 HISTORY: 53 years-old Female; shortness of breath FINDINGS: Lungs: The lung volumes are normal. Left upper lung calcified granuloma. Nofocal opacities. No pneumothorax. No pleural effusion. Heart/Mediastinum: The cardiac silhouette appears normal. Bones andsoft tissues: No acute osseous findings are detected.Redemonstrated ACDF projecting over the lower cervical spine.[facility] StephenvilleD-Discf0975-94-48 19:45:05* Test Item Value Reference Range Interpretation Comments D-DIMER (test code = 5805120834) 1.33 See_Comment H [Automated message] The system [...] a diagnosis. Lab Interpretation (test code = 80554-4) Abnormal [facility] with [id number] 19:39:29* Test Item Value Reference Range Interpretation [...] g/dL 31.6-35.1 L RDW-SD (test code = 58122-1) 70.2 fL 39.0-49.9 H RDW-CV (test code = 788-0) 21.6 % 12.0-15.5 H PLT (test code = 777-3) 259 166-358 MPV (test code = 68993-1) 8.7 fL 9.5-12.9 L NRBC/100 WBC (test code = 0942404240) 0.0 0.0-10.0 NRBC x10^3 (test code = 1752029656) See_Comment [Automated messa ge] The system which generated this result transmitted reference range: 10*3/?L. The reference range was not used to interpret this result as normal/abnormal. GRAN MAT (NEUT) % (test code = 770-8) 57.7 % IMM GRAN % (test code = 7451158207) 0.40 % LYMPH % (test code = 736-9) 30.2 % MONO % (test code = 5905-5) 9.9 % EOS % (test code = 713-8) 0.8 % BASO % (test code = 706-2) 1.0 % GRAN MAT x10^3(ANC) (test code = 3841645671) 4.17 10*3/uL 1.88-7.09 IMM GRAN x10^3 (test code = 3937249188) 0.03 10*3/uL 0.00-0.06 LYMPH x10^3 (test code = 731-0) 2.19 10*3/uL 1.32-3.29 MONO x10^3 (test code = 742-7) 0.72 10*3/uL 0.33-0.92 EOS x10^3 (test code = 711-2) 0.06 10*3/uL 0.03-0.39 BASO x10^3 (test code = 704-7) 0.07 10*3/uL 0.01-0.07 Lab Interpretation (test code = 23554-8) Abnormal [facility]villePOTN GLUCOSE (AUTOMATED)2023-12-03 21:30:58* Test Item Value Reference Range Interpretation Comme [facility] POCT GLU (test code = 1226739502) 102 mg/dL 70-110 Lab Interpretation (test cod e = 52326-9) Normal [facility] Metabolic Panel (NA, K, CL, CO2, GLUCOSE, BUN, CREATININE, CA)2023-12-03 18:22:31* Test Item Value Reference Range Interpretation Comme [facility] NA (test code = 8512338638) 135 mmol/L 135-145 K (test code = 8465098592) 3.9 mmol/L 3.5-5.0 CL (test code = 1389753284) 103 mmol/L 98-108 CO2 TOTAL (test code = 2813954774) 29 mmol/L 23-31 AGAP (test code = 2898592599) 3 2-16 BUN (test code = 9180473221) 12 mg/dL 7-23 GLUCOSE (test code = 8301519434) 85 mg/dL 70-110 CREATININE (test code = 2160-0) 0.63 mg/dL 0.50-1.04 CALCIUM (test code = 3661015093) 8.7 mg/dL 8.6-10.6 eGFR (test code = 58200-7) 107.6 mL/min/1.73m2 CKD-EPI eGFR (20 21). Assuming creatinine has been stable day-to-day for at least three months, the eGFR indicates Category G1 (>= 90 mL/min/1.73 m2) [facility] GLUCOSE (AUTOMATED)2023-12-03 16:52:56* Test Item Value Reference Range Interpretation Comme nts POCT GLU (test code = 4891859701) 98 mg/dL 70-110 Lab Interpretation (test cod e = 72589-3) Normal [facility] GLUCOSE (AUTOMATED)2023-12-03 13:01:11* Test Item Value Reference Range Interpretation Comme nts POCT GLU (test code = 4260452392) 102 mg/dL 70-110 Lab Interpretation (test cod e = 00704-1) Normal [facility] Metabolic Panel (NA, K, CL, CO2, GLUCOSE, BUN, CREATININE, CA)2023-12-03 10:22:08* Test Item Value Reference Range Interpretation Comme nts NA (test code = 9549744471) 138 mmol/L 135-145 K (test code = 1895016856) 3.2 mmol/L 3.5-5.0 L CL (test code = 1773908998) 105 mmol/L 98-108 CO2 TOTAL (test code = 6049859138) 26 mmol/L 23-31 AGAP (test code = 1070844571) 7 2-16 BUN (test code = 8405597644) 11 mg/dL 7-23 GLUCOSE (test code = 9329102946) 96 mg/dL 70-110 CREATININE (test code = 2160-0) 0.61 mg/dL 0.50-1.04 CALCIUM (test code = 7832232806) 8.6 mg/dL 8.6-10.6 eGFR (test code = 24998-9) 108.4 mL/min/1.73m2 CKD-EPI eGFR (2020). Assuming creatinine has been stable day-to-day for at least three months, the eGFR indicates Category G1 (>= 90 mL/min/1.73 m2) Lab Interpretation (test code = 75782-2) Abnormal [facility] StephenvilleMagnesium2024-05-16 10:22:08* Test Item Value Reference Range Interpretation Comme nts MAGNESIUM (test code = 2100216384) 1.9 mg/dL 1.7-2.4 Lab Interpretation (test cod e = 00689-8) Normal [facility] StephenvilleHepatic Function Panel (22462) (ALB,T.PRO,BILI T,BU/BC,ALT,AST,ALK PHOS)2023-12-03 10:22:08* Test Item Value Reference Range Interpretation Comme nts TOTAL BILI (test code = 4174867167) 0.5 mg/dL 0.1-1.1 BILI UNCON (test code = 2917725504) 0.2 mg/dL 0.1-1.1 BILI CONJ (test code = 2437213759) 0.0 mg/dL 0.0-0.3 T PROTEIN (test code = 5168161849) 6.7 g/dL 6.3-8.2 ALBUMIN (test code = 4563924626) 3.7 g/dL 3.5-5.0 ALK PHOS (test code = 6162936487) 135 U/L 34-122 H ALTv (test code = 1742-6) 26 U/L 5-35 AST(SGOT) (test code = 8986558508) 24 U/L 13-40 Lab Interpretation (test cod e = 58184-2) Abnormal [facility] StephenvilleAC Panel 21 + Lactic Pmpw4161-50-92 02:00:25* Test Item Value Reference Range Interpretation Comme nts PH (test code = 5209613582) 7.40 7.32-7.42 PCO2 NOEMI (test code = 4338431882) 40 41-51 L PO2 NOEMI (test code = 4845317753) 34 25-40 HCO3 NOEMI (test code = 2706407886) 24 24-28 AC VBE(BEAKER) (test code = 6618781832) -0.8 mEq/L THB NOEMI (test code = 7720913197) 9.3 g/dL 12.0-16.0 L %O2HB NOEMI (test code = 8252864928) 57.9 % 52.0-63.0 %COHB NOEMI (test code = 5145385518) 1.1 % 0.0-1.5 %METHB NOEMI (test code = 4967603080) 0.3 % 0.4-1.5 L VOL%O2 NOEMI (test code = 0966286450) 7.6 % 6.0-12.0 NA (test code = 5584642345) 139 mmol/L 135-145 K+ (test code = 3089357592) 3.5 mmol/L 3.5-5.0 AC CA IONZ (test code = 1314555881) 4.50 mg/dL 4.50-5.30 GLUCOSE (test code = 2286519534) 88 mg/dL 70-110 LACTIC ACID (test code = 1336519586) 1.63 mmol/L 0.50-2.20 QUES Lab Interpretation (test cod e = 42420-4) Abnormal [facility]villeCT CHEST PULMONARY [id number] 19:47:28HISTORY: Chest pain, rule out P.E. 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 Lab Interpretation (test code = 76202-9) Normal [facility] StephenvilleN-Terminal Dwo-Rch3519-93-15 19:37:29* Test Item Value Reference Range Interpretation Comme nts NT-proBNP (test code = 57404-9) 3420 pg/mL <=125 H LYNDSAY (test code = LYNDSAY) Positive: Heart Failure Likely Lab Interpretation (test code = 94673-4) Abnormal [facility] StephenvilleCbc with Tbit0767-57-07 19:28:47* Test Item Value Reference Range Interpretation [...] g/dL 31.6-35.1 L RDW-SD (test code = 32194-7) 68.9 fL 39.0-49.9 H RDW-CV (test code = 788-0) 22.6 % 12.0-15.5 H PLT (test code = 777-3) 379 166-358 H MPV (test code = 37545-3) 9.1 fL 9.5-12.9 L NRBC/100 WBC (test code = 9035711096) 0.0 0.0-10.0 NRBC x10^3 (test code = 2405430086) See_Comment [Automated messa ge] The system which generated this result transmitted reference range: 10*3/?L. The reference range was not used to interpret this result as normal/abnormal. GRAN MAT (NEUT) % (test code = 770-8) 73.5 % IMM GRAN % (test code = 5832909901) 1.70 % LYMPH % (test code = 736-9) 14.9 % MONO % (test code = 5905-5) 8.3 % EOS % (test code = 713-8) 1.2 % BASO % (test code = 706-2) 0.4 % GRAN MAT x10^3(ANC) (test code = 6967840103) 8.05 10*3/uL 1.88-7.09 H IMM GRAN x10^3 (test code = 1767747595) 0.19 10*3/uL 0.00-0.06 H LYMPH x10^3 (test code = 731-0) 1.63 10*3/uL 1.32-3.29 MONO x10^3 (test code = 742-7) 0.91 10*3/uL 0.33-0.92 EOS x10^3 (test code = 711-2) 0.13 10*3/uL 0.03-0.39 BASO x10^3 (test code = 704-7) 0.04 10*3/uL 0.01-0.07 Lab Interpretation (test code = 66147-1) Abnormal [facility]villeXR CHEST 1 [id number] 19:28:17HISTORY: Dyspnea. TECHNIQUE: Portable AP view of the chest is obtained. Comparison made with11/21/2023 study. FINDINGS: No acute pneumonia. No pneumothorax or pleural effusion orpulmonary congestion detected. Mild cardiomegaly noted. Multilevel lowercervical ACDF surgical changes partially visualized. Mild degenerativechanges noted in the right glenohumeral joint. CONCLUSIONS: Mild cardiomegaly.[facility] Metabolic Panel (26794) 2023-12-02 19:27:30* Test Item Value Reference Range Interpretation Comme nts NA (test code = 2654769102) 138 mmol/L 135-145 K (test code = 3684048735) 3.8 mmol/L 3.5-5.0 CL (test code = 0564085061) 106 mmol/L 98-108 CO2 TOTAL (test code = 7810415078) 22 mmol/L 23-31 L AGAP (test code = 7637496276) 10 2-16 BUN (test code = 6723182417) 11 mg/dL 7-23 GLUCOSE (test code = 9291366375) 103 mg/dL 70-110 CREATININE (test code = 2160-0) 0.56 mg/dL 0.50-1.04 TOTAL BILI (test code = 3204084108) 0.8 mg/dL 0.1-1.1 CALCIUM (test code = 0867871022) 8.9 mg/dL 8.6-10.6 T PROTEIN (test code = 8928552226) 7.3 g/dL 6.3-8.2 ALBUMIN (test code = 7302197353) 3.9 g/dL 3.5-5.0 ALK PHOS (test code = 3414581926) 147 U/L 34-122 H ALTv (test code = 1742-6) 34 U/L 5-35 AST(SGOT) (test code = 4504498133) 30 U/L 13-40 eGFR (test code = 50940-5) 110.7 mL/min/1.73m2 CKD-EPI eGFR (2020). Assuming creatinine has been stable day-to-day for at least three months, the eGFR indicates Category G1 (>= 90 mL/min/1.73 m2) Lab Interpretation (test code = 20828-1) Abnormal [facility]villeN-Terminal Bpx-Lda7901-53-11 17:53:15* Test Item Value Reference Range Interpretation Comme nts NT-proBNP (test code = 22251-7) 1070 pg/mL <=125 H LYNDSAY (test code = LYNDSAY) Positive: Heart Failure Likely Lab Interpretation (test code = 07740-3) Abnormal [facility] StephenvillePOCT GLUCOSE (AUTOMATED)2023-11-28 16:41:29* Test Item Value Reference Range Interpretation Comme nts POCT GLU (test code = 7211894515) 129 mg/dL 70-110 H Lab Interpretation (test cod e = 40267-2) Abnormal [facility] StephenvilleMagnesium2024-05-11 10:02:12* Test Item Value Reference Range Interpretation Comme nts MAGNESIUM (test code = 9290281826) 2.1 mg/dL 1.7-2.4 Lab Interpretation (test cod e = 85920-3) Normal [facility] StephenvillePhosphorus2024-05-11 10:02:12* Test Item Value Reference Range Interpretation Comme nts PHOSPHORUS (test code = 9822930930) 5.9 mg/dL 2.5-5.0 H Lab Interpretation (test cod e = 89855-2) Abnormal [facility] StephenvilleComp. Metabolic Panel (10382)2023-11-28 10:02:12* Test Item Value Reference Range Interpretation Comme nts NA (test code = 7145457199) 140 mmol/L 135-145 K (test code = 2879627474) 3.7 mmol/L 3.5-5.0 CL (test code = 5202915676) 98 mmol/L 98-108 CO2 TOTAL (test code = 8105115362) 33 mmol/L 23-31 H AGAP (test code = 7811257100) 9 2-16 BUN (test code = 7052558564) 24 mg/dL 7-23 H GLUCOSE (test code = 7892163720) 107 mg/dL 70-110 CREATININE (test code = 2160-0) 0.61 mg/dL 0.50-1.04 TOTAL BILI (test code = 3121920123) 0.6 mg/dL 0.1-1.1 CALCIUM (test code = 3120748007) 8.0 mg/dL 8.6-10.6 L T PROTEIN (test code = 6544207173) 6.0 g/dL 6.3-8.2 L ALBUMIN (test code = 7910408527) 3.4 g/dL 3.5-5.0 L ALK PHOS (test code = 4051255326) 173 U/L 34-122 H ALTv (test code = 1742-6) 61 U/L 5-35 H AST(SGOT) (test code = 4404219448) 29 U/L 13-40 eGFR (test code = 94864-0) 108.4 mL/min/1.73m2 CKD-EPI eGFR (2020). Assuming creatinine has been stable day-to-day for at least three months, the eGFR indicates Category G1 (>= 90 mL/min/1.73 m2) Lab Interpretation (test code = 85495-5) Abnormal [facility] with Qlwh8250-81-36 09:37:29* Test Item Value Reference Range Interpretation [...] g/dL 31.6-35.1 L RDW-SD (test code = 36559-7) 65.6 fL 39.0-49.9 H RDW-CV (test code = 788-0) 22.0 % 12.0-15.5 H PLT (test code = 777-3) 292 166-358 MPV (test code = 65558-7) 9.1 fL 9.5-12.9 L NRBC/100 WBC (test code = 8053981149) 0.0 0.0-10.0 NRBC x10^3 (test code = 4705776204) See_Comment [Automated messa ge] The system which generated this result transmitted reference range: 10*3/?L. The reference range was not used to interpret this result as normal/abnormal. GRAN MAT (NEUT) % (test code = 770-8) 62.0 % IMM GRAN % (test code = 2578732380) 1.20 % LYMPH % (test code = 736-9) 28.5 % MONO % (test code = 5905-5) 7.3 % EOS % (test code = 713-8) 0.9 % BASO % (test code = 706-2) 0.1 % GRAN MAT x10^3(ANC) (test code = 0936739106) 4.98 10*3/uL 1.88-7.09 IMM GRAN x10^3 (test code = 1088841061) 0.10 10*3/uL 0.00-0.06 H LYMPH x10^3 (test code = 731-0) 2.29 10*3/uL 1.32-3.29 MONO x10^3 (test code = 742-7) 0.59 10*3/uL 0.33-0.92 EOS x10^3 (test code = 711-2) 0.07 10*3/uL 0.03-0.39 BASO x10^3 (test code = 704-7) 0.01-0.07 Lab Interpretation (test code = 02189-1) Abnormal [facility] GLUCOSE (AUTOMATED)2023-11-28 01:32:15* Test Item Value Reference Range Interpretation Comme nts POCT GLU (test code = 9006882977) 154 mg/dL 70-110 H Lab Interpretation (test cod e = 30148-9) Abnormal [facility] GLUCOSE (AUTOMATED)2023-11-27 21:45:44* Test Item Value Reference Range Interpretation Comme nts POCT GLU (test code = 5309920871) 183 mg/dL 70-110 H Lab Interpretation (test cod e = 71646-7) Abnormal [facility] GLUCOSE (AUTOMATED)2023-11-27 16:31:46* Test Item Value Reference Range Interpretation Comme nts POCT GLU (test code = 3840853581) 96 mg/dL 70-110 Lab Interpretation (test cod e = 96146-6) Normal [facility] GLUCOSE (AUTOMATED)2023-11-27 12:42:32* Test Item Value Reference Range Interpretation Comme nts POCT GLU (test code = 0138400927) 88 mg/dL 70-110 Lab Interpretation (test cod e = 80709-9) [facility] Whole [id number] 06:44:07* Test Item Value Reference Range Interpretation Comme nts LACTIC ACID (test code = 1739239697) 1.48 mmol/L 0.50-2.20 Lab Interpretation (test cod e = 91557-2) [facility]2023-11-27 02:37:00* Test Item Value Reference Range Interpretation Comme nts POCT GLU (test code = 7728324604) 167 mg/dL 70-110 H Lab Interpretation (test cod e = 66924-6) Abnormal [facility]pro[facility] Acid, [id number] 00:22:04* Test Item Value Reference Range Interpretation Comme nts Valproic Acid, Free (test code = 6376016442) 23.8 ug/mL 4.0-15.0 H LYNDSAY (test code = LYNDSAY) Toxic Range: ? Greater than 15 ug/mL Test developed and characteristics determined by [facility] Laboratory Services. Lab Interpretation (test code = 23173-1) [facility]normal [facility]ville[facility]2024-05-09 22:17:52* Test Item Value Reference Range Interpretation Comme nts FOLATE SER (test code = 4947181546) 10.9 ng/mL 3.0-20.0 Lab Interpretation (test cod e = 75648-4) Normal [facility]villeVitamin B12, [id number] 22:17:52* Test Item Value Reference Range Interpretation Comme nts VIT B12 (test code = 0795752205) 485 pg/mL 240-930 LYNDSAY (test code = LYNDSAY) Biotin has been reported to cause a positive bias, interpret results relative to patient's use of biotin. Lab Interpretation (test code = 19362-6) [facility] WO [id number] 22:17:11EXAM: CT HEAD WO CONTRAST HISTORY: 53 [...] The calvarium and central skull base areunremarkable. [place] [facility]ville[facility]esium[facility] 22:11:53* Test Item Value Reference Range Interpretation Comme nts MAGNESIUM (test code = 8850317910) 2.1 mg/dL 1.7-2.4 Lab Interpretation (test cod e = 22728-9) Normal [facility]. Metabolic Panel ([id number])2023-11-26 22:11:53* Test Item Value Reference Range Interpretation Comme nts NA (test code = 9470263369) 132 mmol/L 135-145 L K (test code = 4878576883) 4.3 mmol/L 3.5-5.0 CL (test code = 1334540598) 94 mmol/L 98-108 L CO2 TOTAL (test code = 2821761294) 34 mmol/L 23-31 H AGAP (test code = 9113386017) 4 2-16 BUN (test code = 6347913970) 24 mg/dL 7-23 H GLUCOSE (test code = 7141395295) 178 mg/dL 70-110 H CREATININE (test code = 2160-0) 0.62 mg/dL 0.50-1.04 TOTAL BILI (test code = 4696884704) 0.6 mg/dL 0.1-1.1 CALCIUM (test code = 7318411541) 8.0 mg/dL 8.6-10.6 L T PROTEIN (test code = 7543950124) 6.1 g/dL 6.3-8.2 L ALBUMIN (test code = 3608181827) 3.5 g/dL 3.5-5.0 ALK PHOS (test code = 2078489692) 212 U/L 34-122 H ALTv (test code = 1742-6) 80 U/L 5-35 H AST(SGOT) (test code = 5399671906) 51 U/L 13-40 H eGFR (test code = 57144-9) 108.0 mL/min/1.73m2 CKD-EPI eGFR (2020). Assuming creatinine has been stable day-to-day for at least three months, the eGFR indicates Category G1 (>= 90 mL/min/1.73 m2) Lab Interpretation (test code = 83105-3) Abnormal [facility] GLUCOSE (AUTOMATED)2023-11-26 21:19:06* Test Item Value Reference Range Interpretation Comme nts POCT GLU (test code = 7757789278) 224 mg/dL 70-110 H Lab Interpretation (test cod e = 54241-3) [facility]normal [facility]ville[facility] (Levetiracetam)2023-11-26 19:45:17* Test Item Value Reference Range Interpretation Comme nts KEPPRA (test code = 0459532317) 12-46 L LYNDSAY (test code = LYNDSAY) Therapeutic range: 12-46 ?g/mL ? ?Toxic: Not well established.Test developed and characteristics determined by [facility] Laboratory Services. Lab Interpretation (test code = 49611-2) Abnormal [facility]villeLari[facility] Acid Whole Ognlj9262-63-52 18:11:07* Test Item Value Reference Range Interpretation Comme nts LACTIC ACID (test code = 1803191111) 6.19 mmol/L 0.50-2.20 H Lab Interpretation (test cod e = 41953-0) Abnormal [facility] GLUCOSE (AUTOMATED)2023-11-26 17:06:14* Test Item Value Reference Range Interpretation Comme nts POCT GLU (test code = 6297770539) 293 mg/dL 70-110 H Lab Interpretation (test cod e = 30142-3) Abnormal [facility] Metabolic Panel (17401)2023-11-26 14:21:31* Test Item Value Reference Range Interpretation Comme nts NA (test code = 8931661281) 140 mmol/L 135-145 K (test code = 2760840012) 3.9 mmol/L 3.5-5.0 CL (test code = 6092358543) 93 mmol/L 98-108 L CO2 TOTAL (test code = 9354639651) 38 mmol/L 23-31 H AGAP (test code = 8182727934) 9 2-16 BUN (test code = 5458393766) 25 mg/dL 7-23 H GLUCOSE (test code = 2707436757) 83 mg/dL 70-110 CREATININE (test code = 2160-0) 0.71 mg/dL 0.50-1.04 TOTAL BILI (test code = 1079370827) 0.7 mg/dL 0.1-1.1 CALCIUM (test code = 0955173376) 8.7 mg/dL 8.6-10.6 T PROTEIN (test code = 8332299802) 6.6 g/dL 6.3-8.2 ALBUMIN (test code = 4767960171) 3.6 g/dL 3.5-5.0 ALK PHOS (test code = 6350474740) 220 U/L 34-122 H ALTv (test code = 1742-6) 95 U/L 5-35 H AST(SGOT) (test code = 9014053629) 47 U/L 13-40 H eGFR (test code = 92568-0) 103.1 mL/min/1.73m2 CKD-EPI eGFR (2020). Assuming creatinine has been stable day-to-day for at least three months, the eGFR indicates Category G1 (>= 90 mL/min/1.73 m2) Lab Interpretation (test code = 04422-2) [facility]normal [facility]ville[facility]esium2024-05-09 14:03:47* Test Item Value Reference Range Interpretation Comme nts MAGNESIUM (test code = 4855685857) 2.3 mg/dL 1.7-2.4 Lab Interpretation (test cod e = 41049-7) Normal [facility]villeCb with Ytjy9232-94-60 13:57:47* Test Item Value Reference Range Interpretation [...] g/dL 31.6-35.1 L RDW-SD (test code = 37624-5) 67.3 fL 39.0-49.9 H RDW-CV (test code = 788-0) 22.5 % 12.0-15.5 H PLT (test code = 777-3) 285 166-358 MPV (test code = 22602-3) 9.2 fL 9.5-12.9 L NRBC/100 WBC (test code = 6706356042) 0.3 0.0-10.0 NRBC x10^3 (test code = 0627780390) 0.03 See_Comment [Automated messa ge] The system which generated this result transmitted reference range: 10*3/?L. The reference range was not used to interpret this result as normal/abnormal. GRAN MAT (NEUT) % (test code = 770-8) 70.5 % IMM GRAN % (test code = 5215821922) 0.80 % LYMPH % (test code = 736-9) 21.7 % MONO % (test code = 5905-5) 6.4 % EOS % (test code = 713-8) 0.5 % BASO % (test code = 706-2) 0.1 % GRAN MAT x10^3(ANC) (test code = 7768649341) 7.54 10*3/uL 1.88-7.09 H IMM GRAN x10^3 (test code = 0440811625) 0.09 10*3/uL 0.00-0.06 H LYMPH x10^3 (test code = 731-0) 2.32 10*3/uL 1.32-3.29 MONO x10^3 (test code = 742-7) 0.69 10*3/uL 0.33-0.92 EOS x10^3 (test code = 711-2) 0.05 10*3/uL 0.03-0.39 BASO x10^3 (test code = 704-7) 0.01-0.07 Lab Interpretation (test code = 20847-7) Abnormal [facility]villeL[facility] Acid Whole Taoaw2698-59-49 10:06:23* Test Item Value Reference Range Interpretation Comme nts LACTIC ACID (test code = 5051598905) 2.41 mmol/L 0.50-2.20 H Lab Interpretation (test cod e = 00903-2) Abnormal [facility] GLU[facility] ([facility])2023-11-26 02:14:06* Test Item Value Reference Range Interpretation Comme nts POCT GLU (test code = 8053875062) 288 mg/dL 70-110 H Lab Interpretation (test cod e = 61390-6) Abnormal [facility]villeL[facility] Acid Whole Yfrlw4148-34-25 00:56:52* Test Item Value Reference Range Interpretation Comme nts LACTIC ACID (test code = 6764884536) 2.93 mmol/L 0.50-2.20 H Lab Interpretation (test cod e = 83759-2) Abnormal [facility]villeElectroencephalogram (EEG) - Duration of test: Continuous EEG Monitoring (LTM); Release to patient:Reijksgjo4702-46-88 00:00:00 * Test Item Value Reference Range Interpretation Comme [facility] LYNDSAY (test code = LYNDSAY) LONG-TERM EEG MONITORING #1: 11/26/2023, 15:40 - 16: 31 Name: Heather TurnerMRN: [id number] Age:53 year oldSex: female History from chart review: This is a 53 year old female with a PMH significant for HFrEF (~35% 05/2023), HTN, Smoker, COPD (on intermittent home O2), chronic low back pain, seizure disorder, C3-C4 ACDF and L3-L4 laminectomies (06/01/23) c/b chronic low back pain 2/2 lumbar spinal stenosis, and depression presenting from [facility] ED due to SOB. Level of Consciousness: ?Awake and Drowsy Reason for EEG: History of seizures Current Antiseizure Medications: ? ?divalproex ER (DEPAKOTE ER) 24 hr tablet 1,250 mg, 1,250 mg, Oral, Q12H TECHNICAL INFORMATION: ?The [facility] electroencephalogram was simultaneously recorded with the video. [...] Interpreted by Dewey Neal MD on 11/26/23 -----INTERMEDIATE EEG MONITORING SEGMENT #3: 11/26/23, 19:29:41 to [...] on 11/27/23 Lab Interpretation (test code = 71181-5) Abnormal [facility]. Metabolic Panel (84872)2023-11-25 21:24:39* Test Item Value Reference Range Interpretation Comme nts NA (test code = 8966589517) 134 mmol/L 135-145 L K (test code = 1324486145) 4.3 mmol/L 3.5-5.0 CL (test code = 4208466627) 89 mmol/L 98-108 L CO2 TOTAL (test code = 2351810824) 37 mmol/L 23-31 H AGAP (test code = 6090100763) 8 2-16 BUN (test code = 3509046043) 24 mg/dL 7-23 H GLUCOSE (test code = 0873423588) 177 mg/dL 70-110 H CREATININE (test code = 2160-0) 0.69 mg/dL 0.50-1.04 TOTAL BILI (test code = 6398933578) 0.9 mg/dL 0.1-1.1 CALCIUM (test code = 9463630861) 8.6 mg/dL 8.6-10.6 T PROTEIN (test code = 8098950332) 7.3 g/dL 6.3-8.2 ALBUMIN (test code = 4082506521) 4.1 g/dL 3.5-5.0 ALK PHOS (test code = 7362741201) 263 U/L 34-122 H ALTv (test code = 1742-6) 116 U/L 5-35 H AST(SGOT) (test code = 7156763204) 36 U/L 13-40 eGFR (test code = 23048-8) 105.2 mL/min/1.73m2 CKD-EPI eGFR (2020). Assuming creatinine has been stable day-to-day for at least three months, the eGFR indicates Category G1 (>= 90 mL/min/1.73 m2) Lab Interpretation (test code = 31983-4) [facility]normal [facility]ville[facility]esium2024-05-08 21:24:39* Test Item Value Reference Range Interpretation Comme nts MAGNESIUM (test code = 3917608419) 2.1 mg/dL 1.7-2.4 Lab Interpretation (test cod e = 64298-4) Normal [facility] StephenvilleLariic Acid Whole Brxro9104-48-59 21:10:26* Test Item Value Reference Range Interpretation Comme nts LACTIC ACID (test code = 8577594616) 4.07 mmol/L 0.50-2.20 H Lab Interpretation (test cod e = 61789-1) Abnormal [facility] GLUCOSE (AUTOMATED)2023-11-25 21:01:04* Test Item Value Reference Range Interpretation Comme nts POCT GLU (test code = 6085916895) 173 mg/dL 70-110 H Lab Interpretation (test cod e = 89010-5) Abnormal [facility] GLUCOSE (AUTOMATED)2023-11-25 16:59:00* Test Item Value Reference Range Interpretation Comme nts POCT GLU (test code = 6899693919) 220 mg/dL 70-110 H Lab Interpretation (test cod e = 19550-8) Abnormal [facility] GLUCOSE (AUTOMATED)2023-11-25 13:06:20* Test Item Value Reference Range Interpretation Comme nts POCT GLU (test code = 6166342921) 92 mg/dL 70-110 Lab Interpretation (test cod e = 69663-3) Normal [facility]villeLari[facility] Acid Whole Pchnm5917-59-36 09:28:51* Test Item Value Reference Range Interpretation Comme [facility] LACTIC ACID (test code = 5543349568) 1.66 mmol/L 0.50-2.20 Lab Interpretation (test cod e = 60856-5) [facility] Fmndm0265-90-90 04:58:57* Test Item Value Reference Range Interpretation Comme nts LACTIC ACID (test code = 3575769236) 2.00 mmol/L 0.50-2.20 Lab Interpretation (test cod e = 62725-8) Normal [facility] GLUCOSE (AUTOMATED)2023-11-25 03:05:13* Test Item Value Reference Range Interpretation Comme nts POCT GLU (test code = 6577356090) 189 mg/dL 70-110 H Lab Interpretation (test cod e = 25239-5) Abnormal [facility] ABDOMEN PELVIS W XVYCUOLK5779-56-30 00:18:09CT ABDOMEN PELVIS W CONTRAST 11/24/2023 5:07 [...] pelvic and upper thigh skinthickening and subcutaneous edema.[facility] Acid Whole Vgzga1734-95-67 21:31:49* Test Item Value Reference Range Interpretation Comme nts LACTIC ACID (test code = 8849468856) 4.54 mmol/L 0.50-2.20 H Lab Interpretation (test cod e = 34999-2) Abnormal [facility] GLUCOSE (AUTOMATED)2023-11-24 21:31:39* Test Item Value Reference Range Interpretation Comme nts POCT GLU (test code = 8341002499) 198 mg/dL 70-110 H Lab Interpretation (test cod e = 70418-2) Abnormal [facility] GLUCOSE (AUTOMATED)2023-11-24 17:53:57* Test Item Value Reference Range Interpretation Comme nts POCT GLU (test code = 2879256917) 226 mg/dL 70-110 H Lab Interpretation (test cod e = 70990-1) Abnormal [facility] GLUCOSE (AUTOMATED)2023-11-24 17:53:57* Test Item Value Reference Range Interpretation Comme nts POCT GLU (test code = 5595560018) 226 mg/dL 70-110 H Lab Interpretation (test cod e = 97186-0) Abnormal [facility] GLUCOSE (AUTOMATED)2023-11-24 17:53:57* Test Item Value Reference Range Interpretation Comme nts POCT GLU (test code = 6321602565) 226 mg/dL 70-110 H Lab Interpretation (test cod e = 46056-8) Abnormal [facility] Acid Whole Jrejr9913-88-78 15:48:27* Test Item Value Reference Range Interpretation Comme nts LACTIC ACID (test code = 9939551292) 4.43 mmol/L 0.50-2.20 H Lab Interpretation (test cod e = 79325-6) [facility] Whole Orwqp0310-10-78 15:48:27* Test Item Value Reference Range Interpretation Comme nts LACTIC ACID (test code = 7157062756) 4.43 mmol/L 0.50-2.20 H Lab Interpretation (test cod e = 74670-9) Abnormal [facility]villeL[facility] Acid Whole Jyeqz1610-47-75 15:48:27* Test Item Value Reference Range Interpretation Comme nts LACTIC ACID (test code = 7429378903) 4.43 mmol/L 0.50-2.20 H Lab Interpretation (test cod e = 29883-4) Abnormal [facility]villeCardiovascular Jkdctcrmrcmcdjm5476-42-59 14:28:29? ?RHC/Coronary Angiography Date of Service: 11/23/2023 ?3:18 PM Indication/Diagnosis: heart failure Consent source: self Consent type: indications/complications discussed with patient/legal guardian; written consent obtained Time out completed: yes Aseptic technique: Chlorprep Local Anesthesia: 1% lidocaine without epinephrine Sedation: fentanyl 50 mcg, Versed 2 mg Access site: right radial artery, RIJ [place] 4.0 5fr8 Fr IJ sheathSwan Rosalba ? [...] was present for the entire procedure. [facility] Post-Procedure Sedation AddendumImmediately prior to start of [...] sided failure. Nataliia Ivy professor.Division of cardiovascular medicineThe [facility] GLU[facility]SE (AUTOMATED)2023-11-24 12:34:31* Test Item Value Reference Range Interpretation Comme nts POCT GLU (test code = 1704264194) 114 mg/dL 70-110 H Lab Interpretation (test cod e = 68725-1) Abnormal [facility] GLUCOSE (AUTOMATED)2023-11-24 12:34:31* Test Item Value Reference Range Interpretation Comme nts POCT GLU (test code = 7237489942) 114 mg/dL 70-110 H Lab Interpretation (test cod e = 98080-5) Abnormal [facility] GLUCOSE (AUTOMATED)2023-11-24 12:34:31* Test Item Value Reference Range Interpretation Comme nts POCT GLU (test code = 9766536182) 114 mg/dL 70-110 H Lab Interpretation (test cod e = 86332-2) Abnormal [facility]villeMagnesium2024-05-07 11:10:57* Test Item Value Reference Range Interpretation Comme nts MAGNESIUM (test code = 7404706443) 2.2 mg/dL 1.7-2.4 Lab Interpretation (test cod e = 81718-9) Normal [facility]ville[facility]. Metabolic Panel (32489)2023-11-24 11:10:57* Test Item Value Reference Range Interpretation Comme nts NA (test code = 8536485541) 141 mmol/L 135-145 K (test code = 7559371704) 4.1 mmol/L 3.5-5.0 CL (test code = 5477270500) 97 mmol/L 98-108 L CO2 TOTAL (test code = 4032635762) 36 mmol/L 23-31 H AGAP (test code = 0303881994) 8 2-16 BUN (test code = 1564651376) 20 mg/dL 7-23 GLUCOSE (test code = 7809988625) 125 mg/dL 70-110 H CREATININE (test code = 2160-0) 0.66 mg/dL 0.50-1.04 TOTAL BILI (test code = 4262818591) 0.7 mg/dL 0.1-1.1 CALCIUM (test code = 4867938075) 8.4 mg/dL 8.6-10.6 L T PROTEIN (test code = 1668819396) 6.5 g/dL 6.3-8.2 ALBUMIN (test code = 8489690271) 3.7 g/dL 3.5-5.0 ALK PHOS (test code = 2905102169) 266 U/L 34-122 H ALTv (test code = 1742-6) 149 U/L 5-35 H AST(SGOT) (test code = 8293436625) 35 U/L 13-40 eGFR (test code = 24712-3) 106.4 mL/min/1.73m2 CKD-EPI eGFR (2020). Assuming creatinine has been stable day-to-day for at least three months, the eGFR indicates Category G1 (>= 90 mL/min/1.73 m2) Lab Interpretation (test code = 93886-9) Abnormal [facility]ville[facility]esium2024-05-07 11:10:57* Test Item Value Reference Range Interpretation Comme nts MAGNESIUM (test code = 5239956603) 2.2 mg/dL 1.7-2.4 Lab Interpretation (test cod e = 07402-3) Normal [facility]ville[facility] Metabolic Panel (69602)2023-11-24 11:10:57* Test Item Value Reference Range Interpretation Comme nts NA (test code = 6000759671) 141 mmol/L 135-145 K (test code = 1387180460) 4.1 mmol/L 3.5-5.0 CL (test code = 9071935818) 97 mmol/L 98-108 L CO2 TOTAL (test code = 3732570616) 36 mmol/L 23-31 H AGAP (test code = 4956701942) 8 2-16 BUN (test code = 1772189691) 20 mg/dL 7-23 GLUCOSE (test code = 8901102348) 125 mg/dL 70-110 H CREATININE (test code = 2160-0) 0.66 mg/dL 0.50-1.04 TOTAL BILI (test code = 9108103187) 0.7 mg/dL 0.1-1.1 CALCIUM (test code = 8525505730) 8.4 mg/dL 8.6-10.6 L T PROTEIN (test code = 8691550932) 6.5 g/dL 6.3-8.2 ALBUMIN (test code = 3847392590) 3.7 g/dL 3.5-5.0 ALK PHOS (test code = 7106196162) 266 U/L 34-122 H ALTv (test code = 1742-6) 149 U/L 5-35 H AST(SGOT) (test code = 3801855460) 35 U/L 13-40 eGFR (test code = 40111-9) 106.4 mL/min/1.73m2 CKD-EPI eGFR (2020). Assuming creatinine has been stable day-to-day for at least three months, the eGFR indicates Category G1 (>= 90 mL/min/1.73 m2) Lab Interpretation (test code = 87388-7) Abnormal [facility]ville[facility]2024-05-07 11:10:57* Test Item Value Reference Range Interpretation Comme nts MAGNESIUM (test code = 3940073746) 2.2 mg/dL 1.7-2.4 Lab Interpretation (test cod e = 63489-7) Normal [facility]. Metabolic Panel (18683)2023-11-24 11:10:57* Test Item Value Reference Range Interpretation Comme nts NA (test code = 1634772292) 141 mmol/L 135-145 K (test code = 9367363793) 4.1 mmol/L 3.5-5.0 CL (test code = 1128034434) 97 mmol/L 98-108 L CO2 TOTAL (test code = 9878080253) 36 mmol/L 23-31 H AGAP (test code = 8508574918) 8 2-16 BUN (test code = 8320721186) 20 mg/dL 7-23 GLUCOSE (test code = 8078321838) 125 mg/dL 70-110 H CREATININE (test code = 2160-0) 0.66 mg/dL 0.50-1.04 TOTAL BILI (test code = 2189521702) 0.7 mg/dL 0.1-1.1 CALCIUM (test code = 2098399781) 8.4 mg/dL 8.6-10.6 L T PROTEIN (test code = 3526331086) 6.5 g/dL 6.3-8.2 ALBUMIN (test code = 5096630766) 3.7 g/dL 3.5-5.0 ALK PHOS (test code = 0965500928) 266 U/L 34-122 H ALTv (test code = 1742-6) 149 U/L 5-35 H AST(SGOT) (test code = 7255479952) 35 U/L 13-40 eGFR (test code = 04899-3) 106.4 mL/min/1.73m2 CKD-EPI eGFR (2020). Assuming creatinine has been stable day-to-day for at least three months, the eGFR indicates Category G1 (>= 90 mL/min/1.73 m2) Lab Interpretation (test code = 01424-3) [facility] Vvykyk7270-44-68 11:07:59* Test Item Value Reference Range Interpretation Comme nts LACTIC ACID (test code = 4208577971) 3.41 mmol/L 0.50-2.20 H Lab Interpretation (test cod e = 03606-8) [facility] Ykxycc5049-85-37 11:07:59* Test Item Value Reference Range Interpretation Comme nts LACTIC ACID (test code = 5512035670) 3.41 mmol/L 0.50-2.20 H Lab Interpretation (test cod e = 71572-5) [facility] Dpmafc4003-76-56 11:07:59* Test Item Value Reference Range Interpretation Comme nts LACTIC ACID (test code = 4374304695) 3.41 mmol/L 0.50-2.20 H Lab Interpretation (test cod e = 60928-1) Abnormal [facility] with Mcwq3449-93-70 10:28:34* Test Item Value Reference Range Interpretation [...] g/dL 31.6-35.1 L RDW-SD (test code = 20655-8) 67.5 fL 39.0-49.9 H RDW-CV (test code = 788-0) 22.5 % 12.0-15.5 H PLT (test code = 777-3) 245 166-358 MPV (test code = 26274-2) 9.5 fL 9.5-12.9 NRBC/100 WBC (test code = 4616579594) 1.2 0.0-10.0 NRBC x10^3 (test code = 4307783309) 0.11 See_Comment [Automated messa ge] The system which generated this result transmitted reference range: 10*3/?L. The reference range was not used to interpret this result as normal/abnormal. GRAN MAT (NEUT) % (test code = 770-8) 84.8 % IMM GRAN % (test code = 3580005717) 0.80 % LYMPH % (test code = 736-9) 7.3 % MONO % (test code = 5905-5) 7.0 % EOS % (test code = 713-8) 0.0 % BASO % (test code = 706-2) 0.1 % GRAN MAT x10^3(ANC) (test code = 0585415931) 8.03 10*3/uL 1.88-7.09 H IMM GRAN x10^3 (test code = 4396291045) 0.08 10*3/uL 0.00-0.06 H LYMPH x10^3 (test code = 731-0) 0.69 10*3/uL 1.32-3.29 L MONO x10^3 (test code = 742-7) 0.66 10*3/uL 0.33-0.92 EOS x10^3 (test code = 711-2) 0.03-0.39 L BASO x10^3 (test code = 704-7) 0.01-0.07 Lab Interpretation (test code = 49110-1) Abnormal [facility] with Xnka6934-72-77 10:28:34* Test Item Value Reference Range Interpretation [...] g/dL 31.6-35.1 L RDW-SD (test code = 48861-2) 67.5 fL 39.0-49.9 H RDW-CV (test code = 788-0) 22.5 % 12.0-15.5 H PLT (test code = 777-3) 245 166-358 MPV (test code = 35412-8) 9.5 fL 9.5-12.9 NRBC/100 WBC (test code = 5216346964) 1.2 0.0-10.0 NRBC x10^3 (test code = 2193494539) 0.11 See_Comment [Automated messa ge] The system which generated this result transmitted reference range: 10*3/?L. The reference range was not used to interpret this result as normal/abnormal. GRAN MAT (NEUT) % (test code = 770-8) 84.8 % IMM GRAN % (test code = 3501659635) 0.80 % LYMPH % (test code = 736-9) 7.3 % MONO % (test code = 5905-5) 7.0 % EOS % (test code = 713-8) 0.0 % BASO % (test code = 706-2) 0.1 % GRAN MAT x10^3(ANC) (test code = 8976573348) 8.03 10*3/uL 1.88-7.09 H IMM GRAN x10^3 (test code = 0753219724) 0.08 10*3/uL 0.00-0.06 H LYMPH x10^3 (test code = 731-0) 0.69 10*3/uL 1.32-3.29 L MONO x10^3 (test code = 742-7) 0.66 10*3/uL 0.33-0.92 EOS x10^3 (test code = 711-2) 0.03-0.39 L BASO x10^3 (test code = 704-7) 0.01-0.07 Lab Interpretation (test code = 60191-0) Abnormal [facility] with Kejf5835-32-34 10:28:34* Test Item Value Reference Range Interpretation [...] g/dL 31.6-35.1 L RDW-SD (test code = 03143-4) 67.5 fL 39.0-49.9 H RDW-CV (test code = 788-0) 22.5 % 12.0-15.5 H PLT (test code = 777-3) 245 166-358 MPV (test code = 76700-4) 9.5 fL 9.5-12.9 NRBC/100 WBC (test code = 2594842692) 1.2 0.0-10.0 NRBC x10^3 (test code = 3573855728) 0.11 See_Comment [Automated messa ge] The system which generated this result transmitted reference range: 10*3/?L. The reference range was not used to interpret this result as normal/abnormal. GRAN MAT (NEUT) % (test code = 770-8) 84.8 % IMM GRAN % (test code = 1865036934) 0.80 % LYMPH % (test code = 736-9) 7.3 % MONO % (test code = 5905-5) 7.0 % EOS % (test code = 713-8) 0.0 % BASO % (test code = 706-2) 0.1 % GRAN MAT x10^3(ANC) (test code = 3272831251) 8.03 10*3/uL 1.88-7.09 H IMM GRAN x10^3 (test code = 4088042902) 0.08 10*3/uL 0.00-0.06 H LYMPH x10^3 (test code = 731-0) 0.69 10*3/uL 1.32-3.29 L MONO x10^3 (test code = 742-7) 0.66 10*3/uL 0.33-0.92 EOS x10^3 (test code = 711-2) 0.03-0.39 L BASO x10^3 (test code = 704-7) 0.01-0.07 Lab Interpretation (test code = 16398-8) [facility] 06:40:52* Test Item Value Reference Range Interpretation Comme nts APTT Patient (test code = 3173-2) -36 Lab Interpretation (test cod e = 19097-9) Normal [facility] (for use with Heparin Infusion)2023-11-24 06:40:52* Test Item Value Reference Range Interpretation Comme nts APTT Patient (test code = 3173-2) -36 Lab Interpretation (test cod e = 09521-1) Normal [facility] (for use with Heparin Infusion)2023-11-24 06:40:52* Test Item Value Reference Range Interpretation Comme nts APTT Patient (test code = 3173-2) -36 Lab Interpretation (test cod e = 12087-4) Normal [facility] GLUCOSE (AUTOMATED)2023-11-24 03:18:58* Test Item Value Reference Range Interpretation Comme nts POCT GLU (test code = 5533274928) 263 mg/dL 70-110 H Lab Interpretation (test cod e = 20076-3) Abnormal [facility] GLUCOSE (AUTOMATED)2023-11-24 03:18:58* Test Item Value Reference Range Interpretation Comme nts POCT GLU (test code = 4170205836) 263 mg/dL 70-110 H Lab Interpretation (test cod e = 40504-8) Abnormal [facility] GLUCOSE (AUTOMATED)2023-11-24 03:18:58* Test Item Value Reference Range Interpretation Comme nts POCT GLU (test code = 2208202592) 263 mg/dL 70-110 H Lab Interpretation (test cod e = 03448-0) Abnormal [facility] GLUCOSE (AUTOMATED)2023-11-23 21:29:57* Test Item Value Reference Range Interpretation Comme nts POCT GLU (test code = 2315739185) 137 mg/dL 70-110 H Lab Interpretation (test cod e = 07808-5) Abnormal [facility] GLUCOSE (AUTOMATED)2023-11-23 21:29:57* Test Item Value Reference Range Interpretation Comme nts POCT GLU (test code = 5353123738) 137 mg/dL 70-110 H Lab Interpretation (test cod e = 64798-7) Abnormal [facility] GLUCOSE (AUTOMATED)2023-11-23 21:29:57* Test Item Value Reference Range Interpretation Comme nts POCT GLU (test code = 1463117737) 137 mg/dL 70-110 H Lab Interpretation (test cod e = 97424-3) [facility] ([facility] (ALB,T.PRO,BILI T,BU/BC,ALT,AST,ALK PHOS)2023-11-23 17:45:02* Test Item Value Reference Range Interpretation Comme nts TOTAL BILI (test code = 9167335615) 0.7 mg/dL 0.1-1.1 BILI UNCON (test code = 4833315879) 0.1 mg/dL 0.1-1.1 BILI CONJ (test code = 6284040339) 0.0 mg/dL 0.0-0.3 T PROTEIN (test code = 8138745461) 6.2 g/dL 6.3-8.2 L ALBUMIN (test code = 8412492530) 3.5 g/dL 3.5-5.0 ALK PHOS (test code = 0312552139) 274 U/L 34-122 H ALTv (test code = 1742-6) 176 U/L 5-35 H AST(SGOT) (test code = 0227993971) 40 U/L 13-40 Lab Interpretation (test cod e = 87352-5) [facility]normal [facility] (69790[facility] (ALB,T.PRO,BILI T,BU/BC,ALT,AST,ALK PHOS)2023-11-23 17:45:02* Test Item Value Reference Range Interpretation Comme nts TOTAL BILI (test code = 1000191178) 0.7 mg/dL 0.1-1.1 BILI UNCON (test code = 4473912412) 0.1 mg/dL 0.1-1.1 BILI CONJ (test code = 2881278478) 0.0 mg/dL 0.0-0.3 T PROTEIN (test code = 1223870795) 6.2 g/dL 6.3-8.2 L ALBUMIN (test code = 2768459084) 3.5 g/dL 3.5-5.0 ALK PHOS (test code = 8329819649) 274 U/L 34-122 H ALTv (test code = 1742-6) 176 U/L 5-35 H AST(SGOT) (test code = 6958724213) 40 U/L 13-40 Lab Interpretation (test cod e = 86151-2) [facility]normal [facility] (83011[facility] (ALB,T.PRO,BILI T,BU/BC,ALT,AST,ALK PHOS)2023-11-23 17:45:02* Test Item Value Reference Range Interpretation Comme nts TOTAL BILI (test code = 6741791730) 0.7 mg/dL 0.1-1.1 BILI UNCON (test code = 1176405274) 0.1 mg/dL 0.1-1.1 BILI CONJ (test code = 2458837515) 0.0 mg/dL 0.0-0.3 T PROTEIN (test code = 5904591611) 6.2 g/dL 6.3-8.2 L ALBUMIN (test code = 5760066480) 3.5 g/dL 3.5-5.0 ALK PHOS (test code = 7741326725) 274 U/L 34-122 H ALTv (test code = 1742-6) 176 U/L 5-35 H AST(SGOT) (test code = 5513139318) 40 U/L 13-40 Lab Interpretation (test cod e = 01643-6) Abnormal [facility] GLUCOSE (AUTOMATED)2023-11-23 17:19:25* Test Item Value Reference Range Interpretation Comme nts POCT GLU (test code = 5087329626) 137 mg/dL 70-110 H Lab Interpretation (test cod e = 72467-6) Abnormal [facility] GLUCOSE (AUTOMATED)2023-11-23 17:19:25* Test Item Value Reference Range Interpretation Comme nts POCT GLU (test code = 0606487424) 137 mg/dL 70-110 H Lab Interpretation (test cod e = 20322-3) Abnormal [facility] GLUCOSE (AUTOMATED)2023-11-23 17:19:25* Test Item Value Reference Range Interpretation Comme nts POCT GLU (test code = 4388863292) 137 mg/dL 70-110 H Lab Interpretation (test cod e = 32919-2) Abnormal [facility] GLUCOSE (AUTOMATED)2023-11-23 16:51:25* Test Item Value Reference Range Interpretation Comme nts POCT GLU (test code = 9253715080) 145 mg/dL 70-110 H Lab Interpretation (test cod e = 43900-0) Abnormal [facility] GLUCOSE (AUTOMATED)2023-11-23 16:51:25* Test Item Value Reference Range Interpretation Comme nts POCT GLU (test code = 9622568816) 145 mg/dL 70-110 H Lab Interpretation (test cod e = 26533-3) Abnormal [facility] GLUCOSE (AUTOMATED)2023-11-23 16:51:25* Test Item Value Reference Range Interpretation Comme nts POCT GLU (test code = 4532561887) 145 mg/dL 70-110 H Lab Interpretation (test cod e = 02481-7) [facility]23 15:36:08* Test Item Value Reference Range Interpretation Comme nts APTT Patient (test code = 3173-2) 44 26-36 H Lab Interpretation (test cod e = 80659-8) [facility]2023-11-23 15:36:08* Test Item Value Reference Range Interpretation Comme nts APTT Patient (test code = 3173-2) 44 26-36 H Lab Interpretation (test cod e = 90534-9) [facility]2023-11-23 15:36:08* Test Item Value Reference Range Interpretation Comme nts APTT Patient (test code = 3173-2) 44 26-36 H Lab Interpretation (test cod e = 06797-2) [facility] Fdfhp2508-62-87 15:21:35* Test Item Value Reference Range Interpretation Comme nts LACTIC ACID (test code = 5386856872) 4.80 mmol/L 0.50-2.20 H Lab Interpretation (test cod e = 62736-6) [facility] Zgunx5664-15-58 15:21:35* Test Item Value Reference Range Interpretation Comme nts LACTIC ACID (test code = 6213518138) 4.80 mmol/L 0.50-2.20 H Lab Interpretation (test cod e = 68294-3) [facility] Pnchf5460-75-26 15:21:35* Test Item Value Reference Range Interpretation Comme nts LACTIC ACID (test code = 1566363121) 4.80 mmol/L 0.50-2.20 H Lab Interpretation (test cod e = 72183-4) Abnormal [facility] GLUCOSE (AUTOMATED)2023-11-23 12:49:15* Test Item Value Reference Range Interpretation Comme nts POCT GLU (test code = 6106379571) 162 mg/dL 70-110 H Lab Interpretation (test cod e = 64322-0) Abnormal [facility] GLUCOSE (AUTOMATED)2023-11-23 12:49:15* Test Item Value Reference Range Interpretation Comme nts POCT GLU (test code = 6110929645) 162 mg/dL 70-110 H Lab Interpretation (test cod e = 56506-2) Abnormal [facility] GLUCOSE (AUTOMATED)2023-11-23 12:49:15* Test Item Value Reference Range Interpretation Comme nts POCT GLU (test code = 4073209896) 162 mg/dL 70-110 H Lab Interpretation (test cod e = 53923-3) [facility]normal [facility]2024-[facility] 08:44:42* Test Item Value Reference Range Interpretation Comme nts MAGNESIUM (test code = 4547132151) 1.9 mg/dL 1.7-2.4 Lab Interpretation (test cod e = 94565-5) Normal [facility] Metabolic Panel (NA, K, CL, CO2, GLUCOSE, BUN, CREATININE, CA)2023-11-23 08:44:42* Test Item Value Reference Range Interpretation Comme nts NA (test code = 8594668035) 136 mmol/L 135-145 K (test code = 8545026315) 3.7 mmol/L 3.5-5.0 CL (test code = 7689538983) 99 mmol/L 98-108 CO2 TOTAL (test code = 3506450739) 31 mmol/L 23-31 AGAP (test code = 0634248692) 6 2-16 BUN (test code = 1963857491) 20 mg/dL 7-23 GLUCOSE (test code = 9117183076) 184 mg/dL 70-110 H CREATININE (test code = 2160-0) 0.66 mg/dL 0.50-1.04 CALCIUM (test code = 7235274171) 7.9 mg/dL 8.6-10.6 L eGFR (test code = 26211-6) 106.4 mL/min/1.73m2 CKD-EPI eGFR (2020). Assuming creatinine has been stable day-to-day for at least three months, the eGFR indicates Category G1 (>= 90 mL/min/1.73 m2) Lab Interpretation (test code = 68116-7) [facility]normal [facility]2024-[facility] 08:44:42* Test Item Value Reference Range Interpretation Comme nts MAGNESIUM (test code = 8545396225) 1.9 mg/dL 1.7-2.4 Lab Interpretation (test cod e = 35506-1) Normal [facility] (NA, K, CL, CO2, GLUCOSE, BUN, CREATININE, CA)2023-11-23 08:44:42* Test Item Value Reference Range Interpretation Comme nts NA (test code = 4687009394) 136 mmol/L 135-145 K (test code = 9324778684) 3.7 mmol/L 3.5-5.0 CL (test code = 3386832382) 99 mmol/L 98-108 CO2 TOTAL (test code = 6996308584) 31 mmol/L 23-31 AGAP (test code = 9976872741) 6 2-16 BUN (test code = 0084434226) 20 mg/dL 7-23 GLUCOSE (test code = 4463652993) 184 mg/dL 70-110 H CREATININE (test code = 2160-0) 0.66 mg/dL 0.50-1.04 CALCIUM (test code = 2466085915) 7.9 mg/dL 8.6-10.6 L eGFR (test code = 07763-9) 106.4 mL/min/1.73m2 CKD-EPI eGFR (2020). Assuming creatinine has been stable day-to-day for at least three months, the eGFR indicates Category G1 (>= 90 mL/min/1.73 m2) Lab Interpretation (test code = 53781-6) [facility]normal [facility]2024-[facility] 08:44:42* Test Item Value Reference Range Interpretation Comme nts MAGNESIUM (test code = 7112228142) 1.9 mg/dL 1.7-2.4 Lab Interpretation (test cod e = 99153-3) Normal [facility] Metabolic Panel (NA, K, CL, CO2, GLUCOSE, BUN, CREATININE, CA)2023-11-23 08:44:42* Test Item Value Reference Range Interpretation Comme nts NA (test code = 9668928768) 136 mmol/L 135-145 K (test code = 5792777007) 3.7 mmol/L 3.5-5.0 CL (test code = 2465679547) 99 mmol/L 98-108 CO2 TOTAL (test code = 6357578617) 31 mmol/L 23-31 AGAP (test code = 4307019793) 6 2-16 BUN (test code = 1775385881) 20 mg/dL 7-23 GLUCOSE (test code = 2307663605) 184 mg/dL 70-110 H CREATININE (test code = 2160-0) 0.66 mg/dL 0.50-1.04 CALCIUM (test code = 7706348925) 7.9 mg/dL 8.6-10.6 L eGFR (test code = 33884-4) 106.4 mL/min/1.73m2 CKD-EPI eGFR (2020). Assuming creatinine has been stable day-to-day for at least three months, the eGFR indicates Category G1 (>= 90 mL/min/1.73 m2) Lab Interpretation (test code = 75492-3) [facility] In[facility]2023-11-23 08:29:39* Test Item Value Reference Range Interpretation Comme nts APTT Patient (test code = 3173-2) 49 26-36 H Lab Interpretation (test cod e = 57407-6) [facility]normal [facility] use [facility] Infusion[facility]2023-11-23 08:29:39* Test Item Value Reference Range Interpretation Comme nts APTT Patient (test code = 3173-2) 49 26-36 H Lab Interpretation (test cod e = 68844-4) [facility]normal [facility] use with [facility] Infusion[facility]2023-11-23 08:29:39* Test Item Value Reference Range Interpretation Comme nts APTT Patient (test code = 3173-2) 49 26-36 H Lab Interpretation (test cod e = 23768-9) [facility]normal [facility] with Tuaj7144-11-54 08:24:03* Test Item Value Reference Range Interpretation [...] g/dL 31.6-35.1 L RDW-SD (test code = 14815-8) 66.0 fL 39.0-49.9 H RDW-CV (test code = 788-0) 22.5 % 12.0-15.5 H PLT (test code = 777-3) 204 166-358 MPV (test code = 30826-2) 9.8 fL 9.5-12.9 NRBC/100 WBC (test code = 5383277055) 2.4 0.0-10.0 NRBC x10^3 (test code = 6547888376) 0.17 See_Comment [Automated messa ge] The system which generated this result transmitted reference range: 10*3/?L. The reference range was not used to interpret this result as normal/abnormal. GRAN MAT (NEUT) % (test code = 770-8) 80.3 % IMM GRAN % (test code = 5631174396) 1.70 % LYMPH % (test code = 736-9) 9.5 % MONO % (test code = 5905-5) 8.5 % EOS % (test code = 713-8) 0.0 % BASO % (test code = 706-2) 0.0 % GRAN MAT x10^3(ANC) (test code = 8851276547) 5.77 10*3/uL 1.88-7.09 IMM GRAN x10^3 (test code = 3452013167) 0.12 10*3/uL 0.00-0.06 H LYMPH x10^3 (test code = 731-0) 0.68 10*3/uL 1.32-3.29 L MONO x10^3 (test code = 742-7) 0.61 10*3/uL 0.33-0.92 EOS x10^3 (test code = 711-2) 0.03-0.39 L BASO x10^3 (test code = 704-7) 0.01-0.07 Lab Interpretation (test code = 87747-0) Abnormal [facility] with Qsko4611-88-06 08:24:03* Test Item Value Reference Range Interpretation [...] g/dL 31.6-35.1 L RDW-SD (test code = 21793-6) 66.0 fL 39.0-49.9 H RDW-CV (test code = 788-0) 22.5 % 12.0-15.5 H PLT (test code = 777-3) 204 166-358 MPV (test code = 67577-8) 9.8 fL 9.5-12.9 NRBC/100 WBC (test code = 6916490551) 2.4 0.0-10.0 NRBC x10^3 (test code = 8457338319) 0.17 See_Comment [Automated messa ge] The system which generated this result transmitted reference range: 10*3/?L. The reference range was not used to interpret this result as normal/abnormal. GRAN MAT (NEUT) % (test code = 770-8) 80.3 % IMM GRAN % (test code = 7285463337) 1.70 % LYMPH % (test code = 736-9) 9.5 % MONO % (test code = 5905-5) 8.5 % EOS % (test code = 713-8) 0.0 % BASO % (test code = 706-2) 0.0 % GRAN MAT x10^3(ANC) (test code = 9314631940) 5.77 10*3/uL 1.88-7.09 IMM GRAN x10^3 (test code = 8501504577) 0.12 10*3/uL 0.00-0.06 H LYMPH x10^3 (test code = 731-0) 0.68 10*3/uL 1.32-3.29 L MONO x10^3 (test code = 742-7) 0.61 10*3/uL 0.33-0.92 EOS x10^3 (test code = 711-2) 0.03-0.39 L BASO x10^3 (test code = 704-7) 0.01-0.07 Lab Interpretation (test code = 15979-6) Abnormal [facility] with Nhsz3841-29-91 08:24:03* Test Item Value Reference Range Interpretation [...] g/dL 31.6-35.1 L RDW-SD (test code = 51030-9) 66.0 fL 39.0-49.9 H RDW-CV (test code = 788-0) 22.5 % 12.0-15.5 H PLT (test code = 777-3) 204 166-358 MPV (test code = 75053-6) 9.8 fL 9.5-12.9 NRBC/100 WBC (test code = 5247975979) 2.4 0.0-10.0 NRBC x10^3 (test code = 8107323936) 0.17 See_Comment [Automated messa ge] The system which generated this result transmitted reference range: 10*3/?L. The reference range was not used to interpret this result as normal/abnormal. GRAN MAT (NEUT) % (test code = 770-8) 80.3 % IMM GRAN % (test code = 3137525528) 1.70 % LYMPH % (test code = 736-9) 9.5 % MONO % (test code = 5905-5) 8.5 % EOS % (test code = 713-8) 0.0 % BASO % (test code = 706-2) 0.0 % GRAN MAT x10^3(ANC) (test code = 2198798339) 5.77 10*3/uL 1.88-7.09 IMM GRAN x10^3 (test code = 9283118620) 0.12 10*3/uL 0.00-0.06 H LYMPH x10^3 (test code = 731-0) 0.68 10*3/uL 1.32-3.29 L MONO x10^3 (test code = 742-7) 0.61 10*3/uL 0.33-0.92 EOS x10^3 (test code = 711-2) 0.03-0.39 L BASO x10^3 (test code = 704-7) 0.01-0.07 Lab Interpretation (test code = 61207-8) [facility] Whole Jcudi9888-33-22 08:04:10* Test Item Value Reference Range Interpretation Comme nts LACTIC ACID (test code = 8656467192) 4.15 mmol/L 0.50-2.20 H Lab Interpretation (test cod e = 73238-1) [facility]normal [facility] Whole Osulc6027-99-86 08:04:10* Test Item Value Reference Range Interpretation Comme nts LACTIC ACID (test code = 6636345337) 4.15 mmol/L 0.50-2.20 H Lab Interpretation (test cod e = 81452-2) [facility] Ajago1879-39-19 08:04:10* Test Item Value Reference Range Interpretation Comme nts LACTIC ACID (test code = 1953206455) 4.15 mmol/L 0.50-2.20 H Lab Interpretation (test cod e = 04286-0) [facility] Tpcjt2216-75-74 05:11:29* Test Item Value Reference Range Interpretation Comme nts LACTIC ACID (test code = 0907233075) 4.23 mmol/L 0.50-2.20 H Lab Interpretation (test cod e = 04520-7) Abnormal [facility] Whole Ybglj4838-63-97 05:11:29* Test Item Value Reference Range Interpretation Comme nts LACTIC ACID (test code = 7954972418) 4.23 mmol/L 0.50-2.20 H Lab Interpretation (test cod e = 07138-4) Abnormal [facility] Whole Xyxlg5926-48-22 05:11:29* Test Item Value Reference Range Interpretation Comme nts LACTIC ACID (test code = 7494127000) 4.23 mmol/L 0.50-2.20 H Lab Interpretation (test cod e = 55112-7) Abnormal [facility] Whole Dguko2949-95-95 03:16:26* Test Item Value Reference Range Interpretation Comme nts LACTIC ACID (test code = 1681971127) 3.66 mmol/L 0.50-2.20 H Lab Interpretation (test cod e = 32096-5) Abnormal [facility] Whole Ejseq7581-37-95 03:16:26* Test Item Value Reference Range Interpretation Comme nts LACTIC ACID (test code = 1269893833) 3.66 mmol/L 0.50-2.20 H Lab Interpretation (test cod e = 40479-5) [facility] Uzsbg5912-94-10 03:16:26* Test Item Value Reference Range Interpretation Comme nts LACTIC ACID (test code = 0744568104) 3.66 mmol/L 0.50-2.20 H Lab Interpretation (test cod e = 57333-2) [facility] Ldtzs8369-75-87 01:21:56* Test Item Value Reference Range Interpretation Comme nts LACTIC ACID (test code = 8958755131) 3.68 mmol/L 0.50-2.20 H Lab Interpretation (test cod e = 88368-9) [facility] Ynidk4808-38-75 01:21:56* Test Item Value Reference Range Interpretation Comme nts LACTIC ACID (test code = 6795090933) 3.68 mmol/L 0.50-2.20 H Lab Interpretation (test cod e = 64180-2) [facility] Jmoze4712-34-42 01:21:56* Test Item Value Reference Range Interpretation Comme nts LACTIC ACID (test code = 4749124169) 3.68 mmol/L 0.50-2.20 H Lab Interpretation (test cod e = 17384-4) Abnormal [facility] GLUCOSE (AUTOMATED)2023-11-23 01:07:13* Test Item Value Reference Range Interpretation Comme nts POCT GLU (test code = 6195844000) 193 mg/dL 70-110 H Lab Interpretation (test cod e = 58962-9) Abnormal [facility] GLUCOSE (AUTOMATED)2023-11-23 01:07:13* Test Item Value Reference Range Interpretation Comme nts POCT GLU (test code = 8258496606) 193 mg/dL 70-110 H Lab Interpretation (test cod e = 17323-5) Abnormal [facility] GLUCOSE (AUTOMATED)2023-11-23 01:07:13* Test Item Value Reference Range Interpretation Comme nts POCT GLU (test code = 8362585934) 193 mg/dL 70-110 H Lab Interpretation (test cod e = 98268-6) Abnormal [facility] Whole Ztboh1491-50-52 23:56:10* Test Item Value Reference Range Interpretation Comme nts LACTIC ACID (test code = 2875547527) 3.82 mmol/L 0.50-2.20 H Lab Interpretation (test cod e = 18698-5) [facility] Vcqxo5224-98-00 23:56:10* Test Item Value Reference Range Interpretation Comme nts LACTIC ACID (test code = 4181080323) 3.82 mmol/L 0.50-2.20 H Lab Interpretation (test cod e = 94859-9) [facility] Hihcr7838-57-01 23:56:10* Test Item Value Reference Range Interpretation Comme nts LACTIC ACID (test code = 7675546038) 3.82 mmol/L 0.50-2.20 H Lab Interpretation (test cod e = 50434-2) Abnormal [facility] GLUCOSE (AUTOMATED)2023-11-22 22:00:27* Test Item Value Reference Range Interpretation Comme nts POCT GLU (test code = 8939079108) 218 mg/dL 70-110 H Lab Interpretation (test cod e = 21301-3) Abnormal [facility] GLUCOSE (AUTOMATED)2023-11-22 22:00:27* Test Item Value Reference Range Interpretation Comme nts POCT GLU (test code = 9092487240) 218 mg/dL 70-110 H Lab Interpretation (test cod e = 51639-1) Abnormal [facility] GLUCOSE (AUTOMATED)2023-11-22 22:00:27* Test Item Value Reference Range Interpretation Comme nts POCT GLU (test code = 2526414527) 218 mg/dL 70-110 H Lab Interpretation (test cod e = 48578-2) [facility] Qdhbu7797-84-98 21:49:39* Test Item Value Reference Range Interpretation Comme nts LACTIC ACID (test code = 5249656556) 4.40 mmol/L 0.50-2.20 H Lab Interpretation (test cod e = 13067-1) [facility]normal [facility] Whole Ydfml7526-70-42 21:49:39* Test Item Value Reference Range Interpretation Comme nts LACTIC ACID (test code = 2139446139) 4.40 mmol/L 0.50-2.20 H Lab Interpretation (test cod e = 31253-3) [facility] Pdfyd5131-08-03 21:49:39* Test Item Value Reference Range Interpretation Comme nts LACTIC ACID (test code = 6988439069) 4.40 mmol/L 0.50-2.20 H Lab Interpretation (test cod e = 52514-2) Abnormal [facility] GLUCOSE (AUTOMATED)2023-11-22 21:02:20* Test Item Value Reference Range Interpretation Comme nts POCT GLU (test code = 8413872456) 208 mg/dL 70-110 H Lab Interpretation (test cod e = 79178-5) Abnormal [facility] GLUCOSE (AUTOMATED)2023-11-22 21:02:20* Test Item Value Reference Range Interpretation Comme nts POCT GLU (test code = 0091164136) 208 mg/dL 70-110 H Lab Interpretation (test cod e = 72540-7) Abnormal [facility] GLUCOSE (AUTOMATED)2023-11-22 21:02:20* Test Item Value Reference Range Interpretation Comme nts POCT GLU (test code = 5850626715) 208 mg/dL 70-110 H Lab Interpretation (test cod e = 22091-6) [facility] Atuog9388-71-36 20:01:46* Test Item Value Reference Range Interpretation Comme nts LACTIC ACID (test code = 4224595463) 6.14 mmol/L 0.50-2.20 H Lab Interpretation (test cod e = 68970-9) [facility] Rehaj0854-64-18 20:01:46* Test Item Value Reference Range Interpretation Comme nts LACTIC ACID (test code = 5609809255) 6.14 mmol/L 0.50-2.20 H Lab Interpretation (test cod e = 94459-8) [facility]normal [facility] Whole Rzrcn3546-00-79 20:01:46* Test Item Value Reference Range Interpretation Comme nts LACTIC ACID (test code = 8243232371) 6.14 mmol/L 0.50-2.20 H Lab Interpretation (test cod e = 66388-4) Abnormal [facility] XOARJNB3878-62-37 18:29:14 Procedure: ? RIGHT UPPER QUADRANT ULTRASOUND [...] are sonographically unremarkable inappearance. ?No evidence to ascites.[facility] 2023-11-22 18:29:14Procedure: ? RIGHT UPPER [...] are sonographically unremarkable inappearance. ?No evidence to ascites.[facility] Transthoracic echo (TTE)2023-11-22 18:16:22* Test Item Value Reference Range Interpretation Comme nts Height (test code = 2979654225) 63 in Weight (test code = 4032024849) 208 lbs Systolic BP (test code = 8047445310) 146 mmHg Diastolic BP (test code = 7785839748) 103 mmHg Heart Rate (test code = 7253234541) 112 bpm BSA (test code = 7678708208) 1.97 m2 LVOT diameter (test code = 3222527722) 2.5 cm LVOT area (test code = 4976696527) 5.00 cm2 LA size (test code = 5690184423) 4.2 cm MV Peak E Evette (test code = 8267658466) 128.5 cm/s MV Peak A Evette (test code = 1203322910) 62.4 cm/s E/A ratio (test code = 6095475413) 2.06 ratio E wave decelartion time (test code = 8760081266) 0.12 s MV Prop V (test code = 8726751404) 38.00 cm/s LAV(MOD-sp4) (test code = 9779432740) 68.70 mL Tapse (test code = 2030115253) 0.7 cm LA Volume Index (BP) (test code = 2881053557) 34.6 mL/m2 LA volume (BP) (test code = 1750094570) 68.0 mL LAV(MOD-sp2) (test code = 6354667246) 66.30 mL Ao peak evette (test code = 6172167239) 124.9 cm/s Ao max PG (test code = 0451982403) 6.20 mm[Hg] AV peak gradient (test code = 1919954529) 6.2 mmHg LVOT stroke volume (test code = 2279164447) 42.40 cm3 LVOT peak evette (test code = 1531437322) 67.8 cm/s LVOT mn grad (test code = 3081371833) 0.9 mmHg AV LVOT peak gradient (test code = 7374294840) 1.84 mmHg LVOT peak VTI (test code = 5695900223) 8.4 cm AV area peak evette (test code = 9837063900) 2.7 cm2 LV V1 mean (test code = 7854898094) 43.20 cm/s TR Peak Evette (test code = 0978891629) 247.7 cm/s Triscuspid Valve Regurgitation Peak Gradient (test code = 0512084922) 24.5 mmHg MR max PG (test code = 6661445359) 85.20 mm[Hg] MR max evette (test code = 9079706838) 461.50 cm/s Mr max evette (test code = 1367676058) 461.5 m/s AV regurgitation pressure 1/2 time (test code = 8473173473) 305.5 ms AI dec slope (test code = 9042353739) 432.10 cm/s2 AI max evette (test code = 3442198125) 450.60 cm/s AI max PG (test code = 6325206819) 81.20 mm[Hg] LVIDD (test code = 7374443500) 5.00 cm Left Ventricular End Diastolic Volume by Teichholz Method (test code = 7000656) 116.6 mL IVS (test code = 6887165048) 0.93 cm Interventricular Septum Diastolic Thickness by 2D (test code = 0760824) 0.93 cm LVPWD (test code = 8740396448) 1.00 cm PW (test code = 1290207111) 1.00 cm 0.6-1.1 EF(Teich) (test code = 1236428358) 33.90 % LVIDS (test code = 4291643375) 4.20 cm Left Ventricular End Systolic Volume by Teichholz Method (test code = 3944606) 77.1 mL FS (test code = 6820816126) 16 % EF - 2D (test code = 12266097) 33.90 % Radiology Study observation (narrative) (test code = 64806-1) LYNDSAY (test code = LYNDSAY) ?Left?Ventricle: Left [...] agent used. [facility]2023-[facility]-22 18:16:22* Test Item Value Reference Range Interpretation Comme nts Height (test code = 3487981622) 63 in Weight (test code = 3635273654) 208 lbs Systolic BP (test code = 7921779582) 146 mmHg Diastolic BP (test code = 6729424025) 103 mmHg Heart Rate (test code = 7524893467) 112 bpm BSA (test code = 8640681804) 1.97 m2 LVOT diameter (test code = 2002401294) 2.5 cm LVOT area (test code = 7056480851) 5.00 cm2 LA size (test code = 2524283864) 4.2 cm MV Peak E Evette (test code = 8305429648) 128.5 cm/s MV Peak A Evette (test code = 2564828421) 62.4 cm/s E/A ratio (test code = 1929916563) 2.06 ratio E wave decelartion time (test code = 2945701011) 0.12 s MV Prop V (test code = 3126838332) 38.00 cm/s LAV(MOD-sp4) (test code = 0255050672) 68.70 mL Tapse (test code = 2707214049) 0.7 cm LA Volume Index (BP) (test code = 6164027845) 34.6 mL/m2 LA volume (BP) (test code = 5271547298) 68.0 mL LAV(MOD-sp2) (test code = 9390883326) 66.30 mL Ao peak evette (test code = 5511996319) 124.9 cm/s Ao max PG (test code = 9218855028) 6.20 mm[Hg] AV peak gradient (test code = 6625602485) 6.2 mmHg LVOT stroke volume (test code = 3998160930) 42.40 cm3 LVOT peak evette (test code = 2020415484) 67.8 cm/s LVOT mn grad (test code = 5234328414) 0.9 mmHg AV LVOT peak gradient (test code = 7147827914) 1.84 mmHg LVOT peak VTI (test code = 3293246425) 8.4 cm AV area peak evette (test code = 9509880254) 2.7 cm2 LV V1 mean (test code = 2891175157) 43.20 cm/s TR Peak Evette (test code = 9075069569) 247.7 cm/s Triscuspid Valve Regurgitation Peak Gradient (test code = 1455243783) 24.5 mmHg MR max PG (test code = 1008436302) 85.20 mm[Hg] MR max evette (test code = 2378371819) 461.50 cm/s Mr max evette (test code = 0461695152) 461.5 m/s AV regurgitation pressure 1/2 time (test code = 7516695800) 305.5 ms AI dec slope (test code = 3313785387) 432.10 cm/s2 AI max evette (test code = 8497300449) 450.60 cm/s AI max PG (test code = 5543712379) 81.20 mm[Hg] LVIDD (test code = 6413488354) 5.00 cm Left Ventricular End Diastolic Volume by Teichholz Method (test code = 8789099) 116.6 mL IVS (test code = 1625742052) 0.93 cm Interventricular Septum Diastolic Thickness by 2D (test code = 9256491) 0.93 cm LVPWD (test code = 2418010777) 1.00 cm PW (test code = 7247882250) 1.00 cm 0.6-1.1 EF(Teich) (test code = 9081150739) 33.90 % LVIDS (test code = 6779559226) 4.20 cm Left Ventricular End Systolic Volume by Teichholz Method (test code = 3745002) 77.1 mL FS (test code = 2137160529) 16 % EF - 2D (test code = 75727025) 33.90 % Radiology Study observation (narrative) (test code = 44280-4) LYNDSAY (test code = LYNDSAY) ?Left?Ventricle: Left [...] mL of Definity ultrasound enhancing agent used. [facility] Acid Whole Fpnbq7025-67-44 17:29:30* Test Item Value Reference Range Interpretation Comme [facility] LACTIC ACID (test code = 6566386144) 4.00 mmol/L 0.50-2.20 H QUES Lab Interpretation (test cod e = 68907-3) [facility] Harlu2762-00-26 17:29:30* Test Item Value Reference Range Interpretation Comme nts LACTIC ACID (test code = 8823125988) 4.00 mmol/L 0.50-2.20 H QUES Lab Interpretation (test cod e = 13584-4) [facility] Zmvuh7848-67-40 17:29:30* Test Item Value Reference Range Interpretation Comme nts LACTIC ACID (test code = 8636652326) 4.00 mmol/L 0.50-2.20 H QUES Lab Interpretation (test cod e = 92582-2) Abnormal [facility] GLUCOSE (AUTOMATED)2023-11-22 17:01:27* Test Item Value Reference Range Interpretation Comme [facility] POCT GLU (test code = 4416576614) 152 mg/dL 70-110 H Notified Provide r Lab Interpretation (test code = 30894-6) Abnormal [facility] GLUCOSE (AUTOMATED)2023-11-22 17:01:27* Test Item Value Reference Range Interpretation Comme nts POCT GLU (test code = 4804234701) 152 mg/dL 70-110 H Notified Provide r Lab Interpretation (test code = 10329-8) Abnormal [facility] GLUCOSE (AUTOMATED)2023-11-22 17:01:27* Test Item Value Reference Range Interpretation Comme nts POCT GLU (test code = 4517772342) 152 mg/dL 70-110 H Notified Provide r Lab Interpretation (test code = 50062-8) Abnormal [facility] Fkdix6112-11-32 16:28:02* Test Item Value Reference Range Interpretation Comme nts IRON (test code = 5044600923) 44 ug/dL 50-160 L TIBC (test code = 7602743319) 395 ug/dL 250-410 % FE SAT (test code = 5529075077) 11 % 20-50 L Lab Interpretation (test cod e = 92740-5) Abnormal [facility] Kprbt7284-72-67 16:28:02* Test Item Value Reference Range Interpretation Comme nts IRON (test code = 8135688321) 44 ug/dL 50-160 L TIBC (test code = 2564187564) 395 ug/dL 250-410 % FE SAT (test code = 3181969321) 11 % 20-50 L Lab Interpretation (test cod e = 33877-7) Abnormal [facility] Xcnfk3856-57-91 16:28:02* Test Item Value Reference Range Interpretation Comme nts IRON (test code = 6674512090) 44 ug/dL 50-160 L TIBC (test code = 3796624190) 395 ug/dL 250-410 % FE SAT (test code = 2201615909) 11 % 20-50 L Lab Interpretation (test cod e = 46545-8) Abnormal [facility]. Metabolic Panel (99409)2023-11-22 16:20:58* Test Item Value Reference Range Interpretation Comme nts NA (test code = 7685758826) 135 mmol/L 135-145 K (test code = 5882509215) 4.0 mmol/L 3.5-5.0 Slight hemolysis CL (test code = 8694064108) 108 mmol/L 98-108 CO2 TOTAL (test code = 8301776084) 20 mmol/L 23-31 L AGAP (test code = 0330673530) 7 2-16 BUN (test code = 3580830178) 20 mg/dL 7-23 Slight hemolysis GLUCOSE (test code = 8865616877) 136 mg/dL 70-110 H CREATININE (test code = 2160-0) 0.48 mg/dL 0.50-1.04 L TOTAL BILI (test code = 7308666732) 0.8 mg/dL 0.1-1.1 CALCIUM (test code = 9637650169) 6.7 mg/dL 8.6-10.6 L T PROTEIN (test code = 4813822542) 5.6 g/dL 6.3-8.2 L ALBUMIN (test code = 4499384750) 3.1 g/dL 3.5-5.0 L ALK PHOS (test code = 3553264774) 282 U/L 34-122 H Slight hemolysis ALTv (test code = 1742-6) 196 U/L 5-35 H AST(SGOT) (test code = 0919934126) 56 U/L 13-40 H Slight hemolysis eGFR (test code = 05668-6) 114.8 mL/min/1.73m2 CKD-EPI eGFR (2020). Assuming creatinine has been stable day-to-day for at least three months, the eGFR indicates Category G1 (>= 90 mL/min/1.73 m2) Lab Interpretation (test code = 61993-7) Abnormal [facility]. Metabolic Panel (52023)2023-11-22 16:20:58* Test Item Value Reference Range Interpretation Comme nts NA (test code = 0798949874) 135 mmol/L 135-145 K (test code = 6909892807) 4.0 mmol/L 3.5-5.0 Slight hemolysis CL (test code = 3355769300) 108 mmol/L 98-108 CO2 TOTAL (test code = 3448315007) 20 mmol/L 23-31 L AGAP (test code = 6177948658) 7 2-16 BUN (test code = 2443457706) 20 mg/dL 7-23 Slight hemolysis GLUCOSE (test code = 5750275308) 136 mg/dL 70-110 H CREATININE (test code = 2160-0) 0.48 mg/dL 0.50-1.04 L TOTAL BILI (test code = 0841319517) 0.8 mg/dL 0.1-1.1 CALCIUM (test code = 5754177957) 6.7 mg/dL 8.6-10.6 L T PROTEIN (test code = 7357988833) 5.6 g/dL 6.3-8.2 L ALBUMIN (test code = 2953880358) 3.1 g/dL 3.5-5.0 L ALK PHOS (test code = 6927917767) 282 U/L 34-122 H Slight hemolysis ALTv (test code = 1742-6) 196 U/L 5-35 H AST(SGOT) (test code = 4500596077) 56 U/L 13-40 H Slight hemolysis eGFR (test code = 17754-3) 114.8 mL/min/1.73m2 CKD-EPI eGFR (2020). Assuming creatinine has been stable day-to-day for at least three months, the eGFR indicates Category G1 (>= 90 mL/min/1.73 m2) Lab Interpretation (test code = 17612-2) Abnormal [facility] (77199)2023-11-22 16:20:58* Test Item Value Reference Range Interpretation Comme nts NA (test code = 1922202629) 135 mmol/L 135-145 K (test code = 5377344937) 4.0 mmol/L 3.5-5.0 Slight hemolysis CL (test code = 1583473475) 108 mmol/L 98-108 CO2 TOTAL (test code = 3705495670) 20 mmol/L 23-31 L AGAP (test code = 3136825493) 7 2-16 BUN (test code = 4303319517) 20 mg/dL 7-23 Slight hemolysis GLUCOSE (test code = 9892197586) 136 mg/dL 70-110 H CREATININE (test code = 2160-0) 0.48 mg/dL 0.50-1.04 L TOTAL BILI (test code = 9769361262) 0.8 mg/dL 0.1-1.1 CALCIUM (test code = 7941696370) 6.7 mg/dL 8.6-10.6 L T PROTEIN (test code = 2335895897) 5.6 g/dL 6.3-8.2 L ALBUMIN (test code = 4295676427) 3.1 g/dL 3.5-5.0 L ALK PHOS (test code = 1604122854) 282 U/L 34-122 H Slight hemolysis ALTv (test code = 1742-6) 196 U/L 5-35 H AST(SGOT) (test code = 5386920251) 56 U/L 13-40 H Slight hemolysis eGFR (test code = 19701-3) 114.8 mL/min/1.73m2 CKD-EPI eGFR (2020). Assuming creatinine has been stable day-to-day for at least three months, the eGFR indicates Category G1 (>= 90 mL/min/1.73 m2) Lab Interpretation (test code = 24783-7) Abnormal [facility] [id number] 15:51:03PROCEDURE: CT ANGIO CHEST WITH CONTRAST - [...] cholecystectomy. A left adrenal 2.7cm nodule suspected. [facility] [id number] 15:51:03PROCEDURE: CT ANGIO CHEST WITH CONTRAST - [...] cholecystectomy. A left adrenal 2.7cm nodule suspected. [facility] Bcqzl5511-58-19 14:33:11* Test Item Value Reference Range Interpretation Comme nts LACTIC ACID (test code = 2827171140) 4.04 mmol/L 0.50-2.20 H QUES Lab Interpretation (test cod e = 93119-5) [facility]normal [facility] Qvcsx2133-31-02 14:33:11* Test Item Value Reference Range Interpretation Comme nts LACTIC ACID (test code = 7830303805) 4.04 mmol/L 0.50-2.20 H QUES Lab Interpretation (test cod e = 64185-0) Abnormal [facility] Lzdjq4347-08-97 14:33:11* Test Item Value Reference Range Interpretation Comme nts LACTIC ACID (test code = 7830431125) 4.04 mmol/L 0.50-2.20 H QUES Lab Interpretation (test cod e = 94163-7) Abnormal [facility] GLUCOSE (AUTOMATED)2023-11-22 13:26:51* Test Item Value Reference Range Interpretation Comme nts POCT GLU (test code = 4242188592) 180 mg/dL 70-110 H Notified Provide r Lab Interpretation (test code = 59677-3) Abnormal [facility] GLUCOSE (AUTOMATED)2023-11-22 13:26:51* Test Item Value Reference Range Interpretation Comme nts POCT GLU (test code = 8440619415) 180 mg/dL 70-110 H Notified Provide r Lab Interpretation (test code = 12376-5) [facility] 13:26:51* Test Item Value Reference Range Interpretation Comme nts POCT GLU (test code = 6985745118) 180 mg/dL 70-110 H Notified Provide r Lab Interpretation (test code = 25440-3) Abnormal [facility]villeXR SHOULDER 2+ VW [id number] 09:05:30 Exam: XR SHOULDER 2+ VW RIGHT, 11/22/2023 1:45 AM. Ordering Physician: IVIS MCDERMOTT. History: R arm injury . Technique: Routine view(s) XR SHOULDER 2+ VW RIGHT. Comparison: None. Findings: No evidence of traumatic malalignment. No acute fracture. 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 Eburnation of thegreater tuberosity, sequela of chronic rotator cuff injury. No focalsofttissue swelling. Lungs are clear as visualized. Cervical fusion. [facility] 2+ VW [id number] 09:05:30 Exam: XR SHOULDER 2+ VW RIGHT, 11/22/2023 1:45 AM. Ordering Physician: IVIS MCDERMOTT. History: R arm injury . Technique: Routine view(s) XR SHOULDER 2+ VW RIGHT. Comparison: None. Findings: No evidence of traumatic malalignment. No acute fracture. 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 Eburnation of thegreater tuberosity, sequela of chronic rotator cuff injury. No focalsofttissue swelling. Lungs are clear as visualized. Cervical fusion. [facility] LOWER EXTREMITY VEIN WITH COMPRESSION BILATERAL (ONLY [...] waveforms on the right. No DVT on theleft.[facility] LOWER EXTREMITY VEIN WITH COMPRESSION BILATERAL (ONLY FOR RULE OUT DVT)2023-11-22 08:50:54Exam: LOWER EXTREMITY VEIN WITH COMPRESSION BILATERAL (ONLY [...] waveforms on the right. No DVT on theleft.[facility]villeL[facility] Acid Whole Blood 2023-11-22 08:16:23* Test Item Value Reference Range Interpretation Comme [facility] LACTIC ACID (test code = 1142560467) 3.93 mmol/L 0.50-2.20 H Lab Interpretation (test cod e = 64001-0) Abnormal [facility] StephenvilleLactic Acid Whole Eodhi6787-13-50 08:16:23* Test Item Value Reference Range Interpretation Comme nts LACTIC ACID (test code = 2994311929) 3.93 mmol/L 0.50-2.20 H Lab Interpretation (test cod e = 26234-3) [facility]normal [facility] Whole Pfntg3030-28-58 08:16:23* Test Item Value Reference Range Interpretation Comme [facility] LACTIC ACID (test code = 2353932236) 3.93 mmol/L 0.50-2.20 H Lab Interpretation (test cod e = 03684-9) Abnormal [facility]villeProthrombin Time / [id number] 05:00:31* Test Item Value Reference Range Interpretation Comme nts PROTIME PATIENT (test code = 5964-2) 15.4 10.1-12.6 H INR (test code = 6301-6) 1.3 Normal INR <1.1; Warfarin Therapeutic range 2.0 to 3.0 or 2.5 to 3.5, depending upon the indications. Lab Interpretation (test code = 29434-4) Abnormal [facility]villeaPTT2024-05-05 05:00:31* Test Item Value Reference Range Interpretation Comme nts APTT Patient (test code = 3173-2) LYNDSAY (test code = LYNDSAY) The [facility] patient population mean normal value for aPTT is 30 seconds. Lab Interpretation (test code = 12971-8) Normal [facility]villeProthrombin Time / [id number] 05:00:31* Test Item Value Reference Range Interpretation Comme nts PROTIME PATIENT (test code = 5964-2) 15.4 10.1-12.6 H INR (test code = 6301-6) 1.3 Normal INR <1.1; Warfarin Therapeutic range 2.0 to 3.0 or 2.5 to 3.5, depending upon the indications. Lab Interpretation (test code = 43707-6) Abnormal [facility]aPTT2024-05-05 05:00:31* Test Item Value Reference Range Interpretation Comme nts APTT Patient (test code = 3173-2) LYNDSAY (test code = LYNDSAY) The [facility] patient population mean normal value for aPTT is 30 seconds. Lab Interpretation (test code = 16180-3) Normal [facility]villeProthrombin Time / [id number] 05:00:31* Test Item Value Reference Range Interpretation Comme nts PROTIME PATIENT (test code = 5964-2) 15.4 10.1-12.6 H INR (test code = 6301-6) 1.3 Normal INR <1.1; Warfarin Therapeutic range 2.0 to 3.0 or 2.5 to 3.5, depending upon the indications. Lab Interpretation (test code = 26371-0) Abnormal [facility]aPTT2024-05-05 05:00:31* Test Item Value Reference Range Interpretation Comme nts APTT Patient (test code = 3173-2) 27 26-36 LYNDSAY (test code = LYNDSAY) The [facility] patient population mean normal value for aPTT is 30 seconds. Lab Interpretation (test code = 89365-8) Normal [facility]villeThyroid Stimulating Axnyztj9729-99-34 04:25:31 * Test Item Value Reference Range Interpretation Comme nts TSH (test code = 9423096605) 5.26 0.45-4.70 H Lab Interpretation (test cod e = 94028-2) Abnormal [facility]villeThyroid Stimulating Xmvooda4535-74-77 04:25:31 * Test Item Value Reference Range Interpretation Comme nts TSH (test code = 6064957924) 5.26 0.45-4.70 H Lab Interpretation (test cod e = 14494-8) Abnormal [facility]villeThyroid Stimulating Iywfydy1622-82-44 04:25:31 * Test Item Value Reference Range Interpretation Comme nts TSH (test code = 0509987351) 5.26 0.45-4.70 H Lab Interpretation (test cod e = 43037-2) Abnormal [facility]villeCritical Pkro7758-94-05 04:18:14Megan Rondon MD ? ? 11/21/2023 11:18 [...] of separately billable procedures and treating other patients.[facility] [id number] 04:11:28* Test Item Value Reference Range Interpretation Comme nts FREE T4 (test code = 9200408914) 1.07 0.78-2.20 Lab Interpretation (test cod e = 96267-2) Normal [facility] [id number] 04:11:28* Test Item Value Reference Range Interpretation Comme nts FREE T4 (test code = 4598453513) 1.07 0.78-2.20 Lab Interpretation (test cod e = 57599-0) Normal [facility] [id number] 04:11:28* Test Item Value Reference Range Interpretation Comme nts FREE T4 (test code = 3996449127) 1.07 0.78-2.20 Lab Interpretation (test cod e = 64041-8) Normal [facility] CHEST 1 [id number] 03:22:56Exam: Chest (1 View), 11/21/2023 9:15 PM. Ordering Physician: MEGAN RONDON. History: Chest pain. Technique: One view of the chest. Comparison: 12/11/2022. Findings: Cardiac silhouette is moderately enlarged. There is no pneumothorax. Thereis no consolidation or pleural effusion. Stable mild diffuse interstitialopacities are noted. Pleural and diaphragmatic contours are normal. Changesof anterior ce rvical discectomy and fusion are seen.[facility] CHEST 1 [id number] 03:22:56Exam: Chest (1 View), 11/21/2023 9:15 PM. Ordering Physician: MEGAN RONDON. History: Chest pain. Technique: One view of the chest. Comparison: 12/11/2022. Findings: Cardiac silhouette is moderately enl arged. There is no pneumothorax. Thereis no consolidation or pleural effusion. Stable mild diffuse interstitialopacities are noted. Pleural and diaphragmatic contours are normal. Changesof anterior cervical discectomy and fusion are seen. [facility]villeBLOOD [id number] 07:00:10* Test Item Value Reference Range Interpretation Comme nts CULTURE (BEAKER) (test code = 1095) No growth in 5 days XR KNEE 3 VIEWS LEFT Non-Weight Isaaqzh0325-76-27 09:27:00XR KNEE 3 VIEWS LEFT CLINICAL INDICATION: S/p fall COMPARISON: None FINDINGS: 3views of the left kne e. There is no fracture or malalignment. The femorotibial andfemoropatellar joint spaces are intact. No joint fluid is demonstrated.Surrounding soft tissues are unremarkable. Scattered atheroscleroticvascular calcifications.[facility] Non-Weight Qhyqyhy0156-86-07 09:27:00XR KNEE 3 VIEWS LEFT CLINICAL INDICATION: S/p fall COMPARISON: None FINDINGS: 3views of the left knee. There is no fracture or malalignment. The femorotibial andfemoropatellar joint spaces are intact. No joint fluid is demonstrated.Surrounding soft tissues are unremarkable. Scattered atheroscleroticvascular calcifications.[facility]EE 3 VIEWS [id number] 09:27:00 [facility] 1970 Sex: FXR KNEE 3 VIEWS LEFT CLINICAL INDICATION: S/p fall COMPARISON: NoneFINDINGS: 3views of the left knee.There is no fracture or malalignment. The femorotibial andfemoropatellar joint spaces are intact.No joint fluid is demonstrated.Surrounding soft tissues are unremarkable. Scattered atheroscleroticvascular calcifications.IMPRESSION: No acute fracture or malalignment of the knee Electronically Signed By: Maxim Sultana09/08/2023 09:29 CDTWorkstation Name: [id number] vcnno9922-27-06 08:53:50* Test Item Value Reference Range Interpretation Comme nts POC-Glucose Meter (test code = 1538) 101 mg/dL 70-110 : TESTED AT [address], [address]: Oyster Grower/Physical Science Technician ID = [id number] for Umeh, Akumbu Lab Interpretation (test code = 23249-6) Normal [facility]POC[facility]Glucose qpopk8989-11-74 08:53:50* Test Item Value Reference Range Interpretation Comme nts POC-Glucose Meter (test code = 1538) 101 mg/dL 70-110 : TESTED AT [address], [address]: Oyster Grower/Physical Science Technician ID = [id number] for Umeh, Akumbu Lab Interpretation (test code = 33891-5) Normal [facility]PO[facility]SE [id number] 08:53:50* Test Item Value Reference Range Interpretation Comme nts POC-GLUCOSE METER (BEAKER) (test code = 1538) 101 mg/dL 70-110 : TESTED AT [address], [address]: Oyster Grower/Physical Science Technician ID = [id number] for Umeh, Akumbu BASIC METABOLIC [id number] 05:40:45* Test Item Value Reference Range Interpretation [...] GFR is not applicable for dialysis patients Oyster Grower ID - [id number] 05:40:45* Test Item Value Reference Range Interpretation Comme nts MAGNESIUM (BEAKER) (test cod e = 627) 2.1 mg/dL 1.6-2.6 Oyster Grower ID - [id number] 05:40:45* Test Item Value Reference Range Interpretation Comme nts PHOSPHORUS (BEAKER) (test co de = 604) 5.0 mg/dL 2.3-4.7 H Oyster Grower ID - ADMINCBC W/PLT COUNT & AUTO [id number] 04:49:23* Test Item Value Reference Range Interpretation [...] code = 2801) 0.40 % 0.00-1.00 POCT-GLUCOSE [id number] 21:40:23* Test Item Value Reference Range Interpretation Comme nts POC-GLUCOSE METER (BEAKER) (test code = 1538) 144 mg/dL 70-110 H : TESTED AT [facility] [address], [address]: Oyster Grower/Physical Science Technician ID = [id number] for Baeza, Diana Venous doppler legs xkfqfqxrs2044-21-16 14:27:12PV LAB - Lower Extremities DVT Study Demographics Patient Name YUE LAWS Date of Study 09/07/2023 BR[place] Age 53 Visit Number [id number] Gender Female Accession Number [id number] Dateof 1970 Referring [facility] Room Number 2263 Physician Klystrom Tube Tester Adalberto Wood Interpreting John Solorio, Physician FellowProcedureType [...] in cm/s ; Diameters are measured in [facility]Venous [facility] legs hcnnkqflo7383-80-70 14:27:12PV LAB - Lower Extremities DVT Study Demographics Patient Name YUE LAWS Date of Study 09/07/2023 BROOKLYNN Age 53 Visit Number [id number] Gender Female Accession Number [id number] Date of 1970 Referring EDWARD FERRER Room Number 2263 Physician Klystrom Tube Tester Adalberto Wood Interpreting John Solorio, Physician FellowProcedureType [...] in cm/s ; Diameters are measured in [facility] EEDTRRVPP2457-18-49 04:05:54* Test Item Value Reference Range Interpretation Comme nts MAGNESIUM (BEAKER) (test code = 627) 2.0 mg/dL 1.6-2.6 Specimen sligh tly hemolyzed Oyster Grower ID - MADELINE USGXSBKCLKW6113-26-52 04:05:54* Test Item Value Reference Range Interpretation Comme nts PHOSPHORUS (BEAKER) (test code = 604) 4.5 mg/dL 2.3-4.7 Specimen sligh tly hemolyzed Oyster Grower GEOVANNA CORREA WBASIC METABOLIC [id number] 04:05:54* Test Item Value Reference Range Interpretation [...] GFR is not applicable for dialysis patients Oyster Grower GEOVANNA CORREA WCBC W/PLT COUNT & AUTO [id number] 03:40:48* Test Item Value Reference Range Interpretation [...] code = 2801) 0.30 % 0.00-1.00 POCT-GLUCOSE [id number] 21:28:35* Test Item Value Reference Range Interpretation Comme nts POC-GLUCOSE METER (BEAKER) (test code = 1538) 127 mg/dL 70-110 H : TESTED AT [facility] [address], [address]: Oyster Grower/Physical Science Technician ID = [id number] for Ryan Morin POCT-GLUCOSE [id number] 18:49:21* Test Item Value Reference Range Interpretation Comme nts POC-GLUCOSE METER (BEAKER) (test code = 1538) 122 mg/dL 70-110 H : TESTED AT [facility] [address], [address]: Oyster Grower/Physical Science Technician ID = [id number] for Lauren Santillan POCT-GLUCOSE [id number] 13:27:27* Test Item Value Reference Range Interpretation Comme nts POC-GLUCOSE METER (BEAKER) (test code = 1538) 130 mg/dL 70-110 H : TESTED AT [facility] [address], [address]: Oyster Grower/Physical Science Technician ID = [id number] for Lauren Santillan [id number] 09:09:14* Test Item Value Reference Range Interpretation Comme nts MAGNESIUM (BEAKER) (test cod e = 627) 2.2 mg/dL 1.6-2.6 [id number] 09:09:14* Test Item Value Reference Range Interpretation Comme nts PHOSPHORUS (BEAKER) (test co de = 604) 4.8 mg/dL 2.3-4.7 H BASIC METABOLIC [id number] 09:09:14* Test Item Value Reference Range Interpretation [...] is not applicable for dialysis patients POCT-GLUCOSE [id number] 08:33:30* Test Item Value Reference Range Interpretation Comme [facility] POC-GLUCOSE METER (BEAKER) (test code = 1538) 132 mg/dL 70-110 H : TESTED AT [facility] [address], [address]: Oyster Grower/Physical Science Technician ID = [id number] for Lauren Santillan CBC W/PLT COUNT & AUTO [id number] 05:47:59* Test Item Value Reference Range Interpretation [...] code = 2801) 0.40 % 0.00-1.00 POCT-GLUCOSE [id number] 21:35:37* Test Item Value Reference Range Interpretation Comme nts POC-GLUCOSE METER (BEAKER) (test code = 1538) 129 mg/dL 70-110 H : TESTED AT [facility] [address], [address]: Oyster Grower/Physical Science Technician ID = [id number] for Ryan Morin MR Brain Without & With IV Lqkvbtjg2180-96-92 15:49:58MR BRAIN WITH & WITHOUT IV CONTRAST [...] limits. No obstructive paranasal sinus disease. Additionalfindings: None.[facility]MR [facility] Without & With IV [id number] 15:49:58MR BRAIN WITH & WITHOUT IV CONTRAST [...] limits. No obstructive paranasal sinus disease. Additionalfindings: None.[facility] CenterMR BRAIN WITH & WITHOUT IV [id number] 15:49:58 [facility] 1970 Sex: FMR [...] MRI of the brain.Electronically Signed By: Zeinab Dempsey5:53 CDTWorkstation Name: [id number] METER 2023-09-05 08:34:25* Test Item Value Reference Range Interpretation Comme [facility] POC-GLUCOSE METER (LINNEAAKER) (test code = 1538) 115 mg/dL 70-110 H : TESTED AT [facility] [address], [address]: Oyster Grower/Physical Science Technician ID = [id number] for DOMINGA AMADOR BASIC METABOLIC [id number] 06:06:56* Test Item Value Reference Range Interpretation [...] GFR is not applicable for dialysis patients Oyster Grower ID - [id number] 06:06:56* Test Item Value Reference Range Interpretation Comme nts MAGNESIUM (BEAKER) (test cod e = 627) 2.2 mg/dL 1.6-2.6 Oyster Grower ID - [id number] 06:06:56* Test Item Value Reference Range Interpretation Comme nts PHOSPHORUS (BEAKER) (test co de = 604) 3.8 mg/dL 2.3-4.7 Oyster Grower ID - ADMINCBC W/PLT COUNT & AUTO [id number] 05:29:32* Test Item Value Reference Range Interpretation Comme nts WHITE BLOOD CELL COUNT (BEAK ER) (test code = 775) 8.1 K/ L 3.5-10.5 RED BLOOD CELL COUNT (BEAKER ) (test code = 761) 4.02 M/ L 3.93-5.22 HEMOGLOBIN (BEAKER) (test co de = 410) 10.4 GM/DL 11.2-15.7 L HEMATOCRIT (BEAKER) (test co de = 411) 34.1 % 34.1-44.9 MEAN CORPUSCULAR VOLUME (SGAE KER) (test code = 753) 85 fL [...] code = 2801) 0.50 % 0.00-1.00 POCT-GLUCOSE [id number] 04:55:18* Test Item Value Reference Range Interpretation Comme nts POC-GLUCOSE METER (BEAKER) (test code = 1538) 99 mg/dL 70-110 : TESTED AT [facility] [address], [address]: Oyster Grower/Physical Science Technician ID = [id number] for Ryan Morin POCT-GLUCOSE [id number] 21:49:23* Test Item Value Reference Range Interpretation Comme nts POC-GLUCOSE METER (BEAKER) (test code = 1538) 124 mg/dL 70-110 H : TESTED AT [address], [address]: Oyster Grower/Physical Science Technician ID = [id number] for Rosa Morinn POCT-GLUCOSE [id number] 15:55:53* Test Item Value Reference Range Interpretation Comme nts POC-GLUCOSE METER (BEAKER) (test code = 1538) 126 mg/dL 70-110 H : TESTED AT [address], [address]: Oyster Grower/Physical Science Technician ID = [id number] for Tramaine Daniels [id number] 12:37:56* Test Item Value Reference Range Interpretation Comme nts PROCALCITONIN (BEAKER) (test code = 3036) < ng/mL <0.05 SEPSIS RISK (ng/mL)Low: 0.05-0.50Intermediate: 0.51-2.00High: >=2.01SARS- CoV2/Influenza/RSV [id number] 12:18:09* Test Item Value Reference Range Interpretation Comments SARS-COV2/RT-PCR (test code = 52151-3) Negative Negative The SARS-CoV-2 target nucleic acids [...] provider. Influenza A RT-PCR (test code = 10140-4) Negative Negative The Flu A target nucleic acids are not detected in this specimen. Influenza B RT-PCR (test code = 05617-4) Negative Negative The Flu B target nucleic acids are not detected in this specimen. RSV by RT-PCR (test code = 76641-9) Negative Negative The RSV target nucleic acids [...] the Act. Fact Sheet for Healthcare Providers:https://w ww.[employer]/Docu ments/Xpert%20Xpres s%20SARS%20CoV-2/Fa ct%20Sheets/302-390 2%50UIGF-LLT-4%20HE ALTHCARE%20PROVIDER S%20FACT%20SHEET.pd f Fact Sheet for Healthcare Patients:https://ww w.[employer]/Docum ents/Xpert%20Xpress %20SARS%20Cov-2/Fac t%20Sheets/302-3801 %46GIUD-BSQ-7%20PAT IENT%20FACT%20SHEET .pdf Lab Interpretation (test code = 78122-7) Normal [facility]flu[facility]/RSV [id number] 12:18:09* Test Item Value Reference Range Interpretation Comments SARS-COV2/RT-PCR (test code = 08017-2) Negative Negative The SARS-CoV-2 target nucleic acids [...] provider. Influenza A RT-PCR (test code = 11104-1) Negative Negative The Flu A target nucleic acids are not detected in this specimen. Influenza B RT-PCR (test code = 08355-2) Negative Negative The Flu B target nucleic acids are not detected in this specimen. RSV by RT-PCR (test code = 38008-0) Negative Negative The RSV target nucleic acids [...] the Act. Fact Sheet for Healthcare Providers:https://w [employer]/Docu ments/Xpert%20Xpres s%20SARS%20CoV-2/Fa ct%20Sheets/302-390 2%92MJBQ-JLF-1%20HE ALTHCARE%20PROVIDER S%20FACT%20SHEET.pd f Fact Sheet for Healthcare Patients:https://[employer]/Docum ents/Xpert%20Xpress %20SARS%20Cov-2/Fac t%20Sheets/302-3801 %42PPHE-IJI-2%20PAT IENT%20FACT%20SHEET .pdf Lab Interpretation (test code = 77196-7) Normal [facility] CenterARS[facility]OV[facility]/INFLUENZA/RSV [id number] 12:18:09* Test Item Value Reference Range Interpretation Comme nts SARS-COV2/RT-PCR (test code = 9353648) Negative Negative The SARS-CoV-2 t arget nucleic [...] provider. INFLUENZA A RT-PCR (test code = 8138104) Negative Negative The Flu A target nucleic acids are not detected in this specimen. INFLUENZA B RT-PCR (test code = 0026881) Negative Negative The Flu B target nucleic acids are not detected in this specimen. RSV RT-PCR (test code = 0351941) Negative Negative The RSV target n ucleic [...] 564(g) of the Act.Fact Sheet for Healthcare Providers:https://www.[employer]/Documents/Xpert%20Xpress%20SARS%20CoV-2/Fact%2 0Sheets/302-3902%19WNCI-RSC-0%20HEALTHCARE%20PROVIDERS%20FACT%20SHEET.pdfFact Sheet for Healthcare Patients:https://ww w.[employer]/Documents/Xpert%20Xpress%20SARS%20Cov-2/Fact%20Sheets/302-3801%20S ARS-COV-2%20PATIENT%20FACT%20SHEET.pdfPOCT-GLUCOSE [id number] 11:08:35* Test Item Value Reference Range Interpretation Comme nts POC-GLUCOSE METER (BEAKER) (test code = 1538) 111 mg/dL 70-110 H : TESTED AT [place] [id number], [address]: Oyster Grower/Physical Science Technician ID = [id number] for Emily Danielse POCT-GLUCOSE [id number] 08:16:42* Test Item Value Reference Range Interpretation Comme nts POC-GLUCOSE METER (BEAKER) (test code = 1538) 108 mg/dL 70-110 : TESTED AT [facility] [address], [address]: Oyster Grower/Physical Science Technician ID = [id number] for Beata Vargas MR spine lumbar without IV krvgfpbq7198-03-21 07:58:49MR LUMBAR SPINE WITHOUT IV CONTRAST, MR [...] Posterior ligament ossifications at the calcifications at I31-S85urscndx moderate spinal canal stenosisPosterior disc osteophyte at the T11-T12 level causing mild spinal canalstenosis The spinal cord is normal in caliber and signal intensity. There is no significant foraminal or spinal canal stenosis. 2.1 x 2.3 cm left adrenal nodule, incompletely characterized Paraspinal soft tissues are unremarkable. Lumbar spine: Postoperative changes from posterior decompression at the L3 and F7qfutjp. A 1.3 x 1.5 cm (AP by [...] facet arthropathy with moderatebilateral neural foraminal stenosisCHI Seton Medical CenterMR spine lumbar without IV nbmkheah5568-33-54 07:58:49MR LUMBAR SPINE WITHOUT IV CONTRAST, MR [...] Posterior ligament ossifications at the calcifications at M54-P16ytndpez moderate spinal canal stenosisPosterior disc osteophyte at the T11-T12 level causing mild spinal canalstenosis The spinal cord is normal in caliber and signal intensity. There is no significant foraminal or spinal canal stenosis. 2.1 x 2.3 cm left adrenal nodule, incompletely characterized Paraspinal soft tissues are unremarkable. Lumbar spine: Postoperative changes from posterior decompression at the L3 and S0fudgue. A 1.3 x 1.5 cm (AP by [...] facet arthropathy with moderatebilateral neural foraminal stenosisCHI [facility] CenterMR thoracic spine without IV zeegstff8958-50-26 07:58:49MR LUMBAR SPINE WITHOUT IV CONTRAST, MR [...] Posterior ligament ossifications at the calcifications at H17-X73foawbbl moderate spinal canal stenosisPosterior disc osteophyte at the T11-T12 level causing mild spinal canalstenosis The spinal cord is normal in caliber and signal intensity. There is no significant foraminal or spinal canal stenosis. 2.1 x 2.3 cm left adrenal nodule, incompletely characterized Paraspinal soft tissues are unremarkable. Lumbar spine: Postoperative changes from posterior decompression at the L3 and N5wdmbzl. A 1.3 x 1.5 cm (AP by [...] facet arthropathy with moderatebilateral neural foraminal stenosisCHI [facility]on Medical CenterMR thoracic spine without IV zhebwgvm6551-93-77 07:58:49MR LUMBAR SPINE WITHOUT IV CONTRAST, MR [...] Posterior ligament ossifications at the calcifications at B28-L21rnjbldy moderate spinal canal stenosisPosterior disc osteophyte at the T11-T12 level causing mild spinal canalstenosis The spinal cord is normal in caliber and signal intensity. There is no significant foraminal or spinal canal stenosis. 2.1 x 2.3 cm left adrenal nodule, incompletely characterized Paraspinal soft tissues are unremarkable. Lumbar spine: Postoperative changes from posterior decompression at the L3 and I1hqfdam. A 1.3 x 1.5 cm (AP by [...] facet arthropathy with moderatebilateral neural foraminal stenosisCHI [facility]on Medical CenterMR spine cervical without IV dvjtezuw2306-70-12 07:58:49MR LUMBAR SPINE WITHOUT IV CONTRAST, MR [...] Posterior ligament ossifications at the calcifications at I06-Q16hpbtgqq moderate spinal canal stenosisPosterior disc osteophyte at the T11-T12 level causing mild spinal canalstenosis The spinal cord is normal in caliber and signal intensity. There is no significant foraminal or spinal canal stenosis. 2.1 x 2.3 cm left adrenal nodule, incompletely characterized Paraspinal soft tissues are unremarkable. Lumbar spine: Postoperative changes from posterior decompression at the L3 and Z5ocykrr. A 1.3 x 1.5 cm (AP by [...] facet arthropathy with moderatebilateral neural foraminal stenosisCHI [facility] Medical CenterMR spine cervical without IV didzzsao1686-15-62 07:58:49MR LUMBAR SPINE WITHOUT IV CONTRAST, MR [...] Posterior ligament ossifications at the calcifications at E92-Z15pwhivkd moderate spinal canal stenosisPosterior disc osteophyte at the T11-T12 level causing mild spinal canalstenosis The spinal cord is normal in caliber and signal intensity. There is no significant foraminal or spinal canal stenosis. 2.1 x 2.3 cm left adrenal nodule, incompletely characterized Paraspinal soft tissues are unremarkable. Lumbar spine: Postoperative changes from posterior decompression at the L3 and U8ggllfp. A 1.3 x 1.5 cm (AP by [...] facet arthropathy with moderatebilateral neural foraminal stenosisCHI [facility]on Medical CenterMR CERVICAL SPINE WITHOUT IV [id number] 07:58:49 [facility] 1970 [...] ligament ossifications at the calcifications at T10- O52iovcswp moderate spinal canal stenosisPosterior disc osteophyte at the T11- T12 level causing mild spinal canalstenosisThe spinal cord is normal in caliber and signal intensity. There is no significant foraminal or spinal canal stenosis.2.1 x 2.3 cm left adrenal nodule, incompletely characterizedParaspinal soft tissues are unremarkable.Lumbar spine:Postoperative changes from posterior decompression at the L3 and O1zoarun. A 1.3 x 1.5 cm (AP by [...] Signed By: Maxim Sultana09/04/2023 08:00 CDTWorkstation Name: [id number] THORACIC SPINE WITHOUT IV [id number] 07:58:49 [facility]ABE : 1970 Sex: FMR [...] ligament ossifications at the calcifications at T10- J47pyypmro moderate spinal canal stenosisPosterior disc osteophyte at the T11- T12 level causing mild spinal canalstenosisThe spinal cord is normal in caliber and signal intensity. There is no significant foraminal or spinal canal stenosis.2.1 x 2.3 cm left adrenal nodule, incompletely characterizedParaspinal soft tissues are unremarkable.Lumbar spine:Postoperative changes from posterior decompression at the L3 and C2qqqkdz. A 1.3 x 1.5 cm (AP by [...] Signed By: Maxim Sultana09/04/2023 08:00 CDTWorkstation Name: [id number] LUMBAR SPINE WITHOUT IV [id number] 07:58:49 [facility] : 1970 [...] ligament ossifications at the calcifications at T10- J90pwtoygk moderate spinal canal stenosisPosterior disc osteophyte at the T11- T12 level causing mild spinal canalstenosisThe spinal cord is normal in caliber and signal intensity. There is no significant foraminal or spinal canal stenosis.2.1 x 2.3 cm left adrenal nodule, incompletely characterizedParaspinal soft tissues are unremarkable.Lumbar spine:Postoperative changes from posterior decompression at the L3 and M4klviiu. A 1.3 x 1.5 cm (AP by [...] Signed By: Maxim Narvaez 08:00 CDTWorkstation Name: [id number] 07:46:14 * Test Item Value Reference Range Interpretation Comme nts FERRITIN (BEAKER) (test code = 361) 31.77 ng/mL 5.00-275.00 Oyster Grower ID - hgIRON, TIBC, % SAT. (WITHOUT FERRITIN)2023-09-04 07:24:52* Test Item Value Reference Range Interpretation Comme nts IRON (BEAKER) (test code = 547) 22.0 ug/dL 40.0-160.0 L TOTAL IRON BINDING CAPACITY (BEAKER) (test code = 769) 369 ug/dL 250-450 IRON % SATURATION (2) (BEAKE R) (test code = 2590) 6 % 20-55 L Oyster Grower ID - hgCT spine thoracic without IV qmvcxhrc1846-62-50 05:42:45EXAM: CT THORACIC SPINE WITHOUT IV CONTRAST, [...] Bones/alignment: Age- indeterminate nondisplaced fracture of the X6proogftbr elements, predominantly involving the lamina and pinusprocess.. [...] Postoperative changes in themidline posterior lumbar soft tissues.[facility] CenterCT spine lumbar without IV yxhagzlr7187-04-31 05:42:45EXAM: CT THORACIC SPINE WITHOUT IV CONTRAST, [...] Bones/alignment: Age- indeterminate nondisplaced fracture of the V5fvxxnghuz elements, predominantly involving the lamina and pinusprocess.. [...] Postoperative changes in themidline posterior lumbar soft tissues.[facility] CenterCT spine thoracic without IV contrast [...] Bones/alignment: Age- indeterminate nondisplaced fracture of the W2uqtkmlouv elements, predominantly involving the lamina and pinusprocess.. [...] Postoperative changes in themidline posterior lumbar soft tissues.[facility] CenterCT spine lumbar without IV quawkysu9665-84-53 05:42:45EXAM: CT THORACIC SPINE WITHOUT IV CONTRAST, [...] Bones/alignment: Age- indeterminate nondisplaced fracture of the Y5kgpuecsdo elements, predominantly involving the lamina and pinusprocess.. [...] Postoperative changes in themidline posterior lumbar soft tissues.[facility] CenterCT LUMBAR SPINE WITHOUT IV [id number] 05:42:45[facility] : 1970 Sex: FEXAM: CT [...] spine:Bones/alignment: Age- indeterminate nondisplaced fracture of the O7bhhykblak elements, predominantly i nvolving the lamina and [...] Signed By: Suzan Weaver09/04/2023 05:45 CDTWorkstation Name: [id number] THORACIC SPINE WITHOUT IV [id number] 05:42:45 [facility] : 1970 Sex: FEXAM: [...] spine:Bones/alignment: Age- indeterminate nondisplaced fracture of the P4musaidrag elements, predominantly i nvolving the lamina and [...] Signed By: Suzan Weaver09/04/2023 05:45 CDTWorkstation Name: [id number] 2023-09-04 04:44:34* Test Item Value Reference Range Interpretation Comme nts FIBRINOGEN LEVEL (BEAKER) (t est code = 658) 410 mg/dl 225-434 Urinalysis without Dqlfzufdimt3780-69-51 03:58:52* Test Item Value Reference Range Interpretation Comme nts Color, UA (test code = 5778-6) Light Yellow Clarity, UA (test code = 5767-9) Hazy Specific [place], UA (test code = 5811-5) 1.017 1.001-1.035 pH, UA (test code = 5803-2) 6 5.0-8.0 Protein, UA (test code = 43571-6) 10 mg/dL Negative A Glucose, UA (test code = 365) Negative Negative Ketones, UA (test code = 2514-8) Trace Negative A Bilirubin, UA (test code = 28336-2) Negative Negative Blood, UA (test code = 85789-9) Trace Negative A Nitrite, UA (test code = 5802-4) Negative Negative Leukocytes, UA (test code = 5799-2) Negative Negative Urobilinogen, UA (test code = 92857-3) 0.2 0.2-1.0 Specimen Source (test code = 2795) LYNDSAY (test code = LYNDSAY) Oyster Grower ID - [auto]Oyster Grower ID - tech Lab Interpretation (test code = 06596-5) Abnormal [facility] CenterUrinalysis without Ulcewfbeghb1910-94-60 03:58:52* Test Item Value Reference Range Interpretation Comme nts Color, UA (test code = 5778-6) Light Yellow Clarity, UA (test code = 5767-9) Hazy Specific [place], UA (test code = 5811-5) 1.017 1.001-1.035 pH, UA (test code = 5803-2) 6 5.0-8.0 Protein, UA (test code = 33190-9) 10 mg/dL Negative A Glucose, UA (test code = 365) Negative Negative Ketones, UA (test code = 2514-8) Trace Negative A Bilirubin, UA (test code = 58297-0) Negative Negative Blood, UA (test code = 54997-2) Trace Negative A Nitrite, UA (test code = 5802-4) Negative Negative Leukocytes, UA (test code = 5799-2) Negative Negative Urobilinogen, UA (test code = 36188-3) 0.2 0.2-1.0 Specimen Source (test code = 2795) LYNDSAY (test code = LYNDSAY) Oyster Grower ID - [auto]Oyster Grower ID - tech Lab Interpretation (test code = 51412-3) Abnormal [facility] CenterURINALYSIS WITHOUT [id number] 03:58:52* Test Item Value Reference Range Interpretation [...] 0.2 0.2-1.0 SOURCE(BEAKER) (test code = 2795) Oyster Grower ID - [auto]Oyster Grower ID - techCBC W/PLT COUNT & AUTO [...] 2801) 0.70 % 0.00-1.00 Rapid drug screen, [id number] 02:20:15* Test Item Value Reference Range Interpretation Comme nts Barbiturate Screen (test code = 49326-7) Negative Negative Benzodiazepine Screen (test code = 44750-1) Negative Negative Cocaine (Metab.) Screen (test code = 3397-7) Positive Negative A Methadone Screen (test code = 95194-4) Negative Negative Opiate Screen (test code = 54690-5) Negative Negative Cannabinoid Screen (test code = 92284-4) Positive Negative A Amph/Methamph Screen (test code = 31331-8) Negative Negative Phencyclidine Screen (test code = 16590-2) Negative Negative pH, UA (test code = 5803-2) 6 5.0-8.0 LYNDSAY (test code = LYNDSAY) DRUG CUTOFF CONC.Cocaine 300 ng/mL Cannabinoid 50 ng/mLBenzodiazepine 200 ng/mLBarbiturate 200 ng/mLPhencyclidine 25 ng/mLOpiate 300 ng/mLMethadone 300 ng/mLAmphetamine/ 1000 ng/mL Methamphetamine This assay provides an unconfirmed qualitative test result for the clinical management of patients in emergency situations. Chain of custody not maintained. Some amjm-huw-hzigrjx medications, as well as adulterants, may cause inaccurate results. Clinical correlation should be applied. A more comprehensive drug screen or confirmation of a detected drug may be performed upon request.Oyster Grower ID - ADMIN Lab Interpretation (test code = 08256-1) Abnormal [facility] CenterRapid drug screen, [id number] 02:20:15* Test Item Value Reference Range Interpretation Comme nts Barbiturate Screen (test code = 87270-3) Negative Negative Benzodiazepine Screen (test code = 61428-5) Negative Negative Cocaine (Metab.) Screen (test code = 3397-7) Positive Negative A Methadone Screen (test code = 28329-3) Negative Negative Opiate Screen (test code = 59446-6) Negative Negative Cannabinoid Screen (test code = 83600-7) Positive Negative A Amph/Methamph Screen (test code = 72535-2) Negative Negative Phencyclidine Screen (test code = 87655-5) Negative Negative pH, UA (test code = 5803-2) 6 5.0-8.0 LYNDSAY (test code = LYNDSAY) DRUG CUTOFF CONC.Cocaine 300 ng/mL Cannabinoid 50 ng/mLBenzodiazepine 200 ng/mLBarbiturate 200 ng/mLPhencyclidine 25 ng/mLOpiate 300 ng/mLMethadone 300 ng/mLAmphetamine/ 1000 ng/mL Methamphetamine This assay provides an unconfirmed qualitative test result for the clinical management of patients in emergency situations. Chain of custody not maintained. Some txco-oww-aluonow medications, as well as adulterants, may cause inaccurate results. Clinical correlation should be applied. A more comprehensive drug screen or confirmation of a detected drug may be performed upon request.Oyster Grower ID - ADMIN Lab Interpretation (test code = 12075-6) Abnormal [facility] CenterRAPID DRUG SCREEN, [id number] 02:20:15* Test Item Value Reference Range Interpretation [...] situations. Chain of custody not maintained. Some cfjj-yyi-dhmhmwh medications, as well as adulterants, may cause inaccurate results. Clinical correlation should be applied. A more comprehensive drug screen or confirmation of a detected drug may be performed upon request.Oyster Grower ID - ADMINB-TYPE NATRIURETIC FACTOR (BNP)2023-09-04 02:11:53* Test Item Value Reference Range Interpretation Comme nts B-TYPE NATRIURETIC PEPTIDE (BEAKER) (test code = 700) 1761 pg/mL 0-100 H Oyster Grower ID - ADMINLACTIC ACID, [id number] 02:10:37* Test Item Value Reference Range Interpretation Comme nts LACTATE BLOOD VENOUS (2) (BEAKER) (test code = 2872) 1.04 mmol/L 0.50-2.00 Specimen slightl y hemolyzed Oyster Grower ID - [id number] 02:04:37* Test Item Value Reference Range Interpretation Comme nts PHOSPHORUS (BEAKER) (test code = 604) 4.2 mg/dL 2.3-4.7 Specimen sligh tly hemolyzed Oyster Grower ID - ADMINCOMPREHENSIVE METABOLIC [id number] 02:04:37* Test Item Value Reference Range Interpretation [...] GFR is not applicable for dialysis patients Oyster Grower ID - [id number] 02:04:36* Test Item Value Reference Range Interpretation Comme nts MAGNESIUM (LATOYA) (test code = 627) 2.1 mg/dL 1.6-2.6 Specimen sligh tly hemolyzed Oyster Grower ID - [id number]-KYRHV6047-02-16 01:45:13* Test Item Value Reference Range Interpretation [...] code = 760) 28.5 seconds 22.5-36.0 PROTHROMBIN TIME/[id number] 01:42:15* Test Item Value Reference Range Interpretation Comme nts PROTIME (BEAKER) (test code = 759) 15.8 seconds 11.9-14.2 H INR (BEAKER) (test code = 370) 1.25 <=5.90 RECOMMENDED COUMADIN/WARFARIN INR THERAPY RANGESSTANDARD DOSE: 2.0 - 3.0 Includes: PROPHYLAXIS for venous thrombosis, systemic embolization; TREATMENT for venous thrombosis and/or pulmonary embolus.HIGH RISK: Target INR is 2.5-3.5 for patients with mechanical heart valves.[facility]-XSNJWRM6469-79-16 00:00:00Ordered by an unspecified provider.[facility] CenterEKG-CLDQGFK4287-20-00 00:00:00Ordered by an unspecified provider.[facility] CenterLactic Acid Whole Kbfvl0382-10-63 20:51:22* Test Item Value Reference Range Interpretation Comme nts LACTIC ACID (test code = 6389757755) 1.56 mmol/L 0.50-2.20 Lab Interpretation (test cod e = 34433-7) Normal [facility]BL[facility] [id number] 07:00:09* Test Item Value Reference Range Interpretation Comme nts CULTURE (BEAKER) (test code = 1095) No growth in 5 days T-SPOT(R).KG6167-26-15 18:35:00* Test Item Value Reference Range Interpretation Comme nts T-SPOT.TB (test code = 2641195) Negative SeeBelow Normal Value: Ne gativeA negative [...] CORRECTED FOR NEG CONTROL (test code = 4979996) 1 PANEL B SPOT COUNT CORRECTED FOR NEG CONTROL (test code = 2395357) 0 NEGATIVE CONTROL (test code = 5251736) Passed POSITIVE CONTROL (test code = 1994640) Passed LYNDSAY (test code = LYNDSAY) [id number] [facility] CenterT-SPOT(R).[id number] 18:35:00* Test Item Value Reference Range Interpretation Comme nts T-SPOT.TB (test code = 36087-6) Negative SeeBelow Normal Value: Ne gativeA negative [...] CORRECTED FOR NEG CONTROL (test code = 99700-7) 0 NEGATIVE CONTROL (test code = 79708-9) Passed POSITIVE CONTROL (test code = 11302-1) Passed LYNDSAY (test code = LYNDSAY) [id number] [facility] CenterTransesophageal [id number] 13:41:18 Transesophageal Echocardiography Report (CHETAN) Demographics Patient Name YUE LAWS Date of Study 06/16/2023 [place] Gender Female Visit Number [id number] Race Room Number 1055 Number Date of 1970 Referring Physician Age 53 year(s) Klystrom Tube Tester Interpreting Physician Brian MDProcedure Type of Study [...] Tricuspid Valve Partially visualized. Pulmonic Valve Not visualized.[facility] CenterTransesophageal echo 2023-06-16 13:41:18Transesophageal Echocardiography Report (CHETAN) Demographics Patient Name YUE LAWS Date of Study 06/16/2023 [place] Gender Female Visit Number [id number] Race Room Number 1055 Number Date of 1970 Referring Physician Age 53 year(s) Klystrom Tube Tester Interpreting Physician Brian MDProcedure Type of Study [...] Tricuspid Valve Partially visualized. Pulmonic Valve Not visualized.[facility] HospitalSA kbtkxa1944-74-79 09:55:41* Test Item Value Reference Range Interpretation Comme nts Result (test code = 6463-4) No MRSA isolated [facility] CenterMRSA [id number] 09:55:41* Test Item Value Reference Range Interpretation Comme nts CULTURE (BEAKER) (test code = 1095) No MRSA isolated CRYPTOCOCCAL [id number] 15:50:36* Test Item Value Reference Range Interpretation Comme nts CRYPTOCOCCAL ANTIGEN, SERUM (BEAKER) (test code = 1828) Negative Negative, Interference SPUTUM CULTURE + GRAM [id number] 10:30:11* Test Item Value Reference Range Interpretation [...] GRAM STAIN RESULT (BEAKER) (test code = 544397) 10-15 epithelial cells GRAM STAIN RESULT (BEAKER) (test code = 024710) 2+ gram positive cocci in chains and pairs GRAM STAIN RESULT (BEAKER) (test code = 642759) 1+ gram negative rods GRAM STAIN RESULT (BEAKER) (test code = 870823) 1+ yeast 2+ Normal respiratory rebel presentVANCOMYCIN LEVEL, [id number] 06:41:26* Test Item Value Reference Range Interpretation Comme nts VANCOMYCIN TROUGH (BEAKER) ( test code = 522) 17.0 ug/mL 10.0-20.0 Oyster Grower ID - ADMINECHO W CONTRAST & [id number] 13:44:03Transthoracic Echocardiography Report (TTE) Demographics Patient Name YUE LAWS Date of Study 06/14/2023 [place] Gender Female Visit Number [id number] Race Room Number 1055 Number Date of 1970 Referring Aydee Go MD Physician Age 53 year(s) Klystrom Tube Tester James Albarran RDCS Interpreting Mauricio Bonilla Physician MDProcedure Typeof Study TTE procedure:2DECHO W [...] Peak Velocity: 0.85 m/s Peak Gradient: 2.89 mmHgMenifee Global Medical CenterECHO W CONTRAST & [id number] 13:44:03Transthoracic Echocardiography Report (TTE) Demographics Patient Name YUE LAWS Date of Study 06/14/2023 [place] Gender Female Visit Number [id number] Race Room Number 1055 Number Date of 1970 Referring Aydee Go MD Physician Age 53 year(s) Klystrom Tube Tester James Albarran RDCS Interpreting Physician Brian MDProcedure Type ofStudy TTE [...] Peak Velocity: 0.85 m/s Peak Gradient: 2.89 mmHgMenifee [facility] Medical Center HEMOGLOBIN [id number] 09:26:42* Test Item Value Reference Range Interpretation [...] 5.7- 6.4% indicates increased risk for diabetes (prediabetes)."Oyster Grower ID - ADMOperator ID - ADMECG 12 sdyt0851-55-87 09:06:12Ventricular Rate 97 BPMAtrial Rate 97 BPMP-R Interval 146 msQRS Duration 96 msQ-T Interval 378 msQTC Calculation(Bazett) 480 msP Jackson 68 degreesR Jackson 107 degreesT Jackson 18 degrees Suspect arm leadreversal, interpretation assumes no reversalNormal sinus rhythmRightward axisNonspecific T wave abnormalityAbnormal ECGWhen compared with ECG of 30-MAR-2023 13:06,QRS axis Shifted rightConfirmed by Luis Lopez ([id number]) on 06/14/2023 9:06:07 [facility] CampusECG 12 sntl1188-67-70 09:06:12Ventricular Rate 97 BPMAtrial Rate 97 BPMP-R Interval 146 msQRS Duration 96 msQ-T Interval 378 msQTC Calculation(Bazett) 480 msP Jackson 68 degreesR Jackson 107 degreesT Jackson 18 degrees Suspect arm leadreversal, interpretation assumes no reversalNormal sinus rhythmRightward axisNonspecific T wave abno rmalityAbnormal ECGWhen compared with ECG of 30-MAR-2023 13:06,QRS axis Shifted rightConfirmed by Luis Lopez ([id number]) on 06/14/2023 9:06:07 [facility] CampusBASI METABOLIC [id number] 04:48:18* Test Item Value Reference Range Interpretation [...] GFR is not applicable for dialysis patients Oyster Grower ID - ADMINCBC (HEMOGRAM ONLY)2023-06-14 04:22:50* Test [...] 413) 0 /100 WBC 0-0 Strep pneumoniae cjczxzp2880-46-87 23:34:41* Test Item Value Reference Range Interpretation Comme nts Strep pneumoniae Antigen (test code = 10227-3) Presumptive negative for pneumococcal pneumonia - see [...] the test. Lab Interpretation (test code = 88131-9) Normal [facility] CenterTREP PNEUMONIAE QIPOQZW5065-07-21 23:34:41* Test Item Value Reference Range Interpretation [...] detection limit of the test. Legionella antigen, qkyro8338-43-53 23:29:07* Test Item Value Reference Range Interpretation Comme nts Legionella Urine Antigen (test code = 56466-6) Negative - see comment Negative Negative for L. pneumophila serogroup 1 antigen, suggesting no recent or current infection with this serogroup. Legionellosis cannot be ruled out since other serogroups and species may cause disease. Lab Interpretation (test code = 01360-1) Normal [facility] CenterLEGIONELLA ANTIGEN, [id number] 23:29:07* Test Item Value Reference Range Interpretation Comme nts L. PNEUMOPHILA SEROGP 1 UR AG (BEAKER) (test code = 1156) Negative - see comment Negative Negative for L. pneumophila serogroup 1 antigen, suggesting no recent or current infection with this serogroup. Legionellosis cannot be ruled out since other serogroups and species may cause disease. Venous doppler arm, [id number] 20:05:32PV LAB - Upper Extremities Veins Demographics Patient Name YUE LAWS Date of Study 06/13/2023 [place] Age 53 Visit Number [id number] Gender Female Accession Number [id number] Date ofBirth 1970 Referring Marianela Burgess Room Number 1055 Physician Klystrom Tube Tester Lisa Ruiz Interpreting John Solorio, Physician FellowProcedureType [...] in cm/s ; Diameters are measured in [facility] HospitalVenous doppler arm, [id number] 20:05:32PV LAB - Upper Extremities Veins Demographics Patient Name YUE LAWS Date of Study 06/13/2023 [place] Age 53 Visit Number [id number] Gender Female Accession Number [id number] Date of 1970 Referring Marianela Burgess Room Number 1055 Physician Klystrom Tube Tester Lisa Ruiz Interpreting Physician CARO Oliver FellowProcedureType [...] cm/s ; Diameters are measured in cmCHI [facility]on Medical CenterHIV-1 ANTIGEN WITH HIV-1/2 [id number] 18:36:40* Test Item Value Reference Range Interpretation Comme nts HIV-1 ANTIGEN WITH HIV 1\\T\\2 ANTIBODY (2) (LATOYA) (test code = 2586) Nonreactive Nonreactive MR lumbar spine without & with IV ixferwtx4391-67-12 14:53:29MR LUMBAR SPINE WITH & WITHOUT IV [...] x 1.7x 1.7 cm. Dorsal paraspinal musculature Q2qomughzsrzdgik. Postcontrast imaging demonstrates mild peripheralenhancement of the dorsal paraspinal fluid collection. Left adrenalgland 2.9 cm nodule.[facility] CenterMR lumbar spine without & with IV rzeesvjj1779-39-99 14:53:29MR LUMBAR SPINE WITH & WITHOUT IV [...] x 1.7x 1.7 cm. Dorsal paraspinal musculature G9bmixtdesylrhnr. Postcontrast imaging demonstrates mild peripheralenhancement of the dorsal paraspinal fluid collection. Left adrenalgland 2.9 cm nodule.[facility] LUMBAR SPINE WITH & WITHOUT IV PRUKOFZX8992-19-53 14:53:29[facility] 1970 Sex: FMR LUMBAR SPINE WITH & WITHOUT IV CONTRASTINDICATION: Lumbar radiculopathy, prior surgery, new symptomsCOMPARISON: 03/30/2023TECHNIQUE: Multiplanar, multisequence MR images of the lumbar spine withand without contrast. FINDINGS: Numbering: Last fully formed disc space is designated L5-S1.Spinal cord: The conus medullaris is normal is size, signal intensity,and position, terminating at the D9usmiu. Reduced cauda equinaredundancy above the L3-4 level.Osseous [...] 1.7 x 1.7 cm. Dorsal paraspinal musculature D2ruixryzlypused. Postcontrast imaging demonstrates mild peripheralenhancement of the [...] Signed By: Ryan Buckley06/13/2023 14:55 CDTWorkstation Name: [id number] KINASE (CK)2023-06-13 11:54:02* Test Item Value Reference Range Interpretation Comme nts CREATINE KINASE TOTAL (BEAKE R) (test code = 380) 43 U/L 29-200 Oyster Grower ID - ADMINCOMPREHENSIVE METABOLIC TJRYR8244-44-65 06:48:22* Test Item Value Reference Range Interpretation [...] GFR is not applicable for dialysis patients Oyster Grower ID - ADMINPROTHROMBIN TIME/PUN1978-23-35 06:40:01* Test Item Value Reference Range Interpretation [...] code = 2801) 1.70 % 0.00-1.00 H QHBISQQYU2911-41-04 05:26:09* Test Item Value Reference Range Interpretation Comme nts MAGNESIUM (BEAKER) (test cod e = 627) 2.0 mg/dL 1.6-2.6 Oyster Grower ID - EBMGFYYBNTYLCIA4691-24-29 05:26:09* Test Item Value Reference Range Interpretation Comme nts PHOSPHORUS (BEAKER) (test co de = 604) 3.5 mg/dL 2.3-4.7 Oyster Grower ID - ADMINBASIC METABOLIC [id number] 05:26:08* Test Item Value Reference Range Interpretation [...] GFR is not applicable for dialysis patients Oyster Grower ID - ADMINCBC W/PLT COUNT & AUTO [id number] 05:11:15* Test Item Value Reference Range Interpretation [...] 0.70 % 0.00-1.00 XR spine lumbar 1 ilwc5090-09-57 10:32:20XR SPINE LUMBAR 1 VIEW CLINICAL INDICATION: L3-4 LAMINECTOMY COMPAR[facility]: [facility]XR [facility] 1 wnlm4532-10-04 10:32:20XR SPINE LUMBAR 1 VIEW CLINICAL INDICATION: L3-4 LAMINECTOMY COMPARISON: [facility]XR SPINE LUMBAR 1 VIEW 2023-06-01 10:32:20 [facility] 1970 Sex: FXR SPINE LUMBAR 1 VIEWCLINICAL INDICATION: L3-4 LAMINECTOMYCOMPARISON: NoneIMPRESSION:A single lateral view of the lumbar spine is obtained intraoperatively.The posterior approach surgical instrument is seen at the L3-L4 level,inferior to the L3 spinous process. Results were communicated to , who concurred with the above findings. Electronically Signed By: Maxim Ramos08/01/2022 10:34 CDTWo rkstation Name: [id number] SPINE LUMBAR 1 [id number] 10:29:18 [facility] : 1970 Sex: FCLINICAL [...] Signed By: Maxim Ramos08/01/2022 10:31 CDTWorkstation Name: [id number] Screen, adbgj3260-86-65 05:32:52* Test Item Value Reference Range Interpretation Comme nts Preg Test, Ur (test code = 2112-1) Negative Negative Lab Interpretation (test cod e = 13972-6) Normal [facility] CenterPREGNANCY SCREEN, [id number] 05:32:52* Test Item Value Reference Range Interpretation Comme nts TEST URINE (BEAKER ) (test code = 583) Negative Negative BASIC METABOLIC [id number] 23:30:54* Test Item Value Reference Range Interpretation [...] GFR is not applicable for dialysis patients Oyster Grower ID - ADMINPT/UBNT3027-57-72 23:15:33* Test Item Value Reference Range Interpretation [...] H CT neck soft tissue without IV zmnmufet1995-80-92 13:45:22EXAM: CT NECK SOFT TISSUE WITHOUT IV [...] Postoperative changes from anterior cervical discectomy fusionat C3-P5Vtejydcf Lung Apices: NormalCHI Seton Medical CenterCT neck soft tissue without IV qwrpqbkj6241-03-32 13:45:22EXAM: CT NECK SOFT TISSUE WITHOUT IV [...] Postoperative changes from anterior cervical discectomy fusionat C3-R9Dgdxfenm Lung Apices: NormalCHI Seton Medical CenterCT NECK SOFT TISSUE WITHOUT IV [id number] 13:45:22 [facility] : 1970 [...] Postoperative changes from anterior cervical discectomy fusionat C3-R5Omdpkoda Lung Apices: NormalIMPRESSION:Exam limited by lack of intravenous contrast.1. 1.8 x 2.9 x 1.3 cm ill-defined fluid collection in the leftanterolateral neck soft tissues, suggesting evolving postoperativehemorrhage. Superimposed infection is not ex cluded.2. Retropharyngeal fluid and air measuring up to 0.8 cm in thickness,favored to be present postoperative right frontal edema. Superimposedinfection is not excluded.3. Postoperative changes from ACDF at C3- B9Lfixwgqjwcpxai Signed By: Maxim Ramos07/31/2022 13:47 CDTWorkstation Name: [id number] METABOLIC FDXZZ6190-05-27 08:13:13* Test Item Value Reference Range Interpretation [...] GFR is not applicable for dialysis patients Oyster Grower ID - BVCBC W/PLT COUNT & AUTO TKJJORXTDKWS4365-49-98 07:46:31* Test Item Value Reference Range Interpretation [...] 0.00-1.00 XR spine cervical 2 or 3 heboe7655-71-98 20:24:23TECHNIQUE: Frontal and lateral views of the cervical spine. INDICATION: Postop Standing Films. COMPARISON: None.[facility] CenterXR spine cervical 2 or 3 zizwl3291-08-46 20:24:23TECHNIQUE: Frontal and lateral views of the cervical spine. INDICATION: Postop Standing Films. COMPARISON: None.[facility] CenterXR SPINE CERVICAL 2 OR 3 [id number] 20:24:23 [facility] 1970 Sex: FTECHNIQUE: [...] Signed By: Zachariah Garcia05/28/2023 20:26 CDTWorkstation Name: [id number] fluoro non-specific up to 1 hour 2023-05-28 11:45:16This is a non-reportable study with no Radiologist dictation. Please refer to your PACS to review images, or Doc Flowsheets for documentation on studies without images.[facility] CenterFL fluoro non-specific up to 1 iuqf6242-21-72 11:45:16This is a non-reportable study with no Radiologist dictation. Please refer to your PACS to review images, or Doc Flowsheets for documentation on studies without images.[facility] CenterFL FLUORO NON-SPECIFIC UP TO 1 [id number] 11:45:16 [facility] : 1970 Sex: FThis is a non- reportable study with no Radiologist dictation. Please refer to your PACS to review images, or Doc Flowsheets for documentation on studies without images.FL FLUORO NON-SPECIFIC UP TO 1 [id number] 10:13:02 [facility] : 1970 Sex: FTECHNIQUE: 1 lateral fluoroscopic image of the cervical spine forlocalization.Fluoroscopic time: 3second(s).FINDINGS:The surgical pointer is at C3-C4.The findings were discussed with Dr. Garcia in theOR who concurred withthe findings.IMPRESSION:Intraoperative localization plain film as described abo ve.Electronically Signed By: Derik Reyez05/28/2023 10:15 CDTWorkstation Name: [id number], QUANTITATIVE, SSFTAFDOM6903-18-43 08:21:03* Test Item Value Reference Range Interpretation Comme nts GONADOTROPIN, CHORIONIC (HCG ) QUANT (BEAKER) (test code = 649) < mIU/mL 0-10 Non- Females: <10 mIU/mL Females: Gestation Age Reference Range(mIU/mL) 0.2-1 Week 5-50 1-2 Weeks 50-500 2-3 Weeks 100-5,000 3-4 Weeks 500-10,000 4-5 Weeks 1,000-50,000 5-6 Weeks 10,000-100,000 6-8 Weeks 15,000- 200,000 2-3 Months 10,000-100,000 Oyster Grower ID - ADMINCULTURE, [id number] 09:28:30SPECIMEN NUMBER: [id number] CULTURE, URINE SPECIMEN NUMBER: [id number] SPECIMEN COMMENT: URINE SOURCE: URINE REPORT STATUS: FINAL FINAL REPORT: 05/15/2023 >100,000 CFU/ML UROGENITAL REBEL PRESENT NOCOMMON PATHOGENS UNLESS OTHERWISE INDICATED, ALL TESTING PERFORMED AT [facility] [employer] [address] [place] [address] COTTON PICKER: JANNY STEINER M.D. CLIA NUMBER [id number] [place]. [id number], [id number] 12:02:50SPECIMEN NUMBER: [id number] CULTURE, URINE SPECIMEN NUMBER: [id number] SOURCE: URINE REPORT STATUS: FINAL FINAL REPORT: 05/13/2023 NO SPECIMEN RECEIVED FOR TESTING. CHARGES DELETED.BASIC METABOLIC [id number] 04:48:43* Test Item Value Reference Range Interpretation Comme nts GLUCOSE (test code = 2217) 117 MG/DL 70-99 H BUN (test code = 2208) 20 MG/DL 6-20 CREATININE (test code = 2214) 0.83 MG/DL 0.60-1.30 eGFR (2020 CKD-EPI) (test co de = 64019) 85 ML/MIN/1.73 >60 SODIUM (test code = [...] 12.7 SECONDS 12.5-14.7 INR (test code = 24336) 0.9 SEE BELOW CURRENT RECOMMENDATIONS ARE FOR AN INR OF 2.0-3.0 FOR ALL PATIENTS ON VITAMIN K ANTAGONISTS, EXCEPT THOSE WITH PROSTHETIC HEART VALVES, FOR WHOM INR OF 2.5-3.5 IS RECOMMENDED. UNLESS OTHERWISE INDICATED, ALL TESTING PERFORMED AT [employer] [facility] [employer] [address] [place] [address] COTTON PICKER: JANNY STEINER M.D. CLIA NUMBER [id number] [place]. [id number] CBC W/AUTO DIFF WITH [id number] 01:54:17* Test Item Value Reference Range Interpretation [...] = 1065) 0.0 /100 WBC'S See_Comment [Automated PiAutoa ge] The system which generated this result [...] H ABS NUCLEATED RBCS (test code = 73841) 0.00 K/UL 0.00-0.11 ECG 12 [id number] 14:02:48Ventricular Rate 102 BPMAtrial Rate 102 BPMP-R Interval 146 msQRS Duration 90 msQ-T Interval 372 msQTC Calculation(Bazeyury) 484 msP Jackson 11 degreesR Jackson -53 degreesT Jackson 29 degrees Sinus tachycardiaPossible Left atrial enlargementLeft axis deviationPoor R wave progression Cannot rule out Anterior infarct , age undetermined vs lead misplacementNonspecific T wave abnormalityProlonged QTAbnormal ECGNo previous ECGs availableConfirmed by David GARCIA BASANT ([id number]) on 04/06/2023 2:02:46 [facility] CONTRAST & [id number] 13:11:39Transthoracic Echocardiography Report (TTE) Demographics Patient Name YUE LAWS Date of Study 03/31/2023 [place] Gender Female Visit Number [id number] Race 122 Room Number 2227 Number Date of 1970 Referring Physician Mariah Aldridge MD Age 53year(s) Klystrom Tube Tester Wilmer Francois Senior Production Manager Josefina Corbett, [facility] Interpreting Physician Melody MDProcedure Type of Study [...] PV is not well visualized; function appears normalby Doppler visualized. Aorta Aortic root size (Sinus [...] Velocity: 0.74 m/s Peak Gradient: 2.22 mmHgCHI Seton Medical CenterECHO W CONTRAST & [id number] 13:11:39Transthoracic Echocardiography Report (TTE) Demographics Patient Name YUE LAWS Date of Study 03/31/2023 [place] Gender Female Visit Number [id number] Race Room Number 2227 Number Date of 1970 Referring Physician Mariah Aldridge MD Age 53 year(s) Klystrom Tube Tester Wilmer Francois Senior Production Manager Josefina Corbett RDCS Interpreting Physician Melody MDProcedure [...] PV is not well visualized; function appears normalby Doppler visualized. Aorta Aortic root size (Sinus [...] Peak Velocity: 0.74 m/s Peak Gradient: 2.22 mmHgMenifee Global Medical CenterXR chest 1 view portable / [id number] 15:39:07TECHNIQUE: Frontal view of the chest. INDICATION: CHf. COMPARISON: None. FINDINGS: LINES/TUBES: None. HEART AND MEDIASTINUM: Cardiomediastinal contour is within normallimits. LUNGS: The lungs are well inflated and clear. No consolidation orpulmonary edema. PLEURA: No pneumothorax. No significant pleural effusion. SOFT TISSUES AND BONES: Cervical spinal fixation hardware is noted.[facility] CenterXR chest 1 view portable / emwvhjk9613-77-97 15:39:07TECHNIQUE: Frontal view of the chest. INDICATION: CHf. COMPARISON: None. FINDINGS: LINES/TUBES: None. HEART AND MEDIASTINUM: Cardiomediastinal contour is within normallimits. LUNGS: The lungs are well inflated and clear. No consolidation orpulmonary edema. PLEURA: No pneumothorax. No significant pleural effusion. SOFT TISSUES AND BONES: Cervical spinal fixation hardware is noted.[facility] CenterXR CHEST 1 VIEW PORTABLE / [id number] 15:39:07 [facility] 1970 Sex: FTECHNIQUE: Frontal view of the chest.INDICATION: CHf.COMPARISON: None.FINDINGS:LINES/TUBES: None.HE ART AND MEDIASTINUM: Cardiomediastinal contour is within normallimits. LUNGS: The lungs are well inflated and clear. No consolidation orpulmonary edema.PLEURA: No pneumothorax. No significant pleuraleffusion.SOFT TISSUES AND BONES: Cervical spinal fixation hardware is noted.IMPRESSION:No acute card iopulmonary process.Electronically Signed By: Jose Carlos Longoriaman04/01/2023 15:41 CDTWorkstation Name: [id number]-WELI NATRIURETIC FACTOR (BNP)2023-04-01 14:15:07* Test Item Value Reference Range Interpretation Comme nts B-TYPE NATRIURETIC PEPTIDE ( BEAKER) (test code = 700) 192 pg/mL 0-100 H Oyster Grower ID - ADMINMR spine cervical without IV [id number] 11:30:35MRI cervical spine without contrast CLINICAL HISTORY: [...] and paraspinal soft tissues are within normal limits.[facility] CenterMR CERVICAL SPINE WITHOUT IV [id number] 11:30:35 [facility] : 1970 Sex: FMRI [...] Signed By: Maxim Sultana03/31/2023 11:32 CDTWorkstation Name: [id number] METABOLIC [id number] 04:43:14* Test Item Value Reference Range Interpretation [...] GFR is not applicable for dialysis patients Oyster Grower GEOVANNA Yarelis [facility] (HEMOGRAM ONLY)2023-03-31 04:20:07* Test Item Value [...] 0 /100 WBC 0-0 Arterial doppler legs bjwrxjkwd3586-12-26 17:44:07PV LAB - Lower Extremity Arterial Duplex Demographics Patient Name YUE LAWS Date of Study BR[place]NN Age 53 Visit Number [id number] Gender Female Accession Number [id number] of 1970 Referring Mariah Aldridge, Room Number 2227 Physician Klystrom Tube Tester Yovana Akins Interpreting John Solorio, Physician FellowProcedureType [...] + + + + + + !Prox MONITORING SPECIALIST ! !32 ! !Biphasic ! !60.9 ! !Triphasic ! +- + + + + + + + + + !Mid MONITORING SPECIALIST ! !25.9 ! !Biphasic ! !59.7 ! !Triphasic ! + + + + + + + + + + !Dist MONITORING SPECIALIST ! !33.2 ! !Biphasic ! !37.4 ! [...] + + + + + + +[facility] CenterArterial doppler legs hncazyplw4838-17-73 17:44:07PV LAB - Lower Extremity Arterial Duplex Demographics Patient Name YUE LAWS Date of Study 03/30/2023 BR[place] Age 53 Visit Number [id number] Gender Female Accession Number [id number] Date of 1970 Referring Mariah Aldridge, Room Number 5805 Physician Klystrom Tube Tester Yovana Akins Interpreting John Solorio, Physician FellowProcedureType [...] + + + + + + !Prox MONITORING SPECIALIST ! !32 ! !Biphasic ! !60.9 ! !Triphasic ! +-- + + + + + + + + + !Mid MONITORING SPECIALIST ! !25.9 ! !Biphasic ! !59.7 ! !Triphasic ! + + + + + + + + + + !Dist MONITORING SPECIALIST ! !33.2 ! !Biphasic ! !37.4 ! [...] + + + + + + +[facility] CenterABI's Only(Ankle/Brachial Index)2023-03-30 17:13:47PV LAB - Lower Extremity Arterial Procedure Demographics Patient Name YUE LAWS Date of Study 03/30/2023 [place] Age 53 Visit Number [id number] Gender Female Accession Number [id number] Date of 1970 Referring Mariah Aldridge, Room Number 2227 Physician Klystrom Tube Tester Yovana Akins Interpreting John Solorio, Physician FellowProcedureType [...] in cm/s ; Diameters are measured in [facility] HospitalABI's Only(Ankle/Brachial Index)2023-03-30 17:13:47PV LAB - Lower Extremity Arterial Procedure Demographics Patient Name YUE LAWS Date of Study 03/30/2023 [place] Age 53 Visit Number [id number] Gender Female Accession Number [id number] Date of 1970 Referring Mariah Escotojeredneena, Room Number 2227 Physician Klystrom Tube Tester Yovana Akins Interpreting Physician CARO Oliver FellowProcedureType of Study: Extremities Arteries: Lower Extremity Arterial Procedure, ARTERIAL (ALEISHA'S W/DOPPLER) ONLY.Indications for Romel dy:PVD.Patient Status:Routine.Study Location:Vascular Lab.Technical Quality:Adequate visualization.Risk FactorsHistory of [...] in cm/s ; Diameters are [facility] in [facility] without IV hpjftvrf1989-50-41 12:50:50MR THORACIC SPINE WITHOUT IV CONTRAST INDICATION: [...] and further reported on MRI lumbar spine. [facility] IV [id number] 12:50:50[facility] 1970 Sex: FMR [...] abnormality. T10-11 moderate right neural foraminal stenosis ntuE77-77 moderate bilateral foraminal stenosis due to facet [...] Signed By: Ryan Buckley03/30/2023 12:52 CDTWorkstation Name: [id number] spine lumbar without IV hhqwfiyh0482-52-15 12:33:57MR LUMBAR SPINE WITHOUT IV CONTRAST INDICATION: Unlisted Reason for ExamConcern for cord compression COMPARISON: None TECHNIQUE: Multiplanar, multisequence MR images of the lumbar spinewithout contrast. FINDINGS: For the purposes of this dictation, the 5 lowermost xvmfix-vuedoxiflebrb-gnvr vertebral bodies are labeled L1-L5.Alignment of the [...] with mild to moderatebilateral neural foraminal stenosisCHI Seton Medical CenterMR LUMBAR SPINE WITHOUT IV [id number] 12:33:57 [facility] : 1970 Sex: FMR LUMBAR SPINE WITHOUT IV CONTRASTINDICATION: Unlisted Reason for ExamConcern for cord compressionCOMPARISON: NoneTECHNIQUE: Multiplanar, multisequence MR images of the lumbar spinewithout contrast. FINDINGS: For the purposes of this dictation, the 5 lowermost qlznrs-chhxvudfuzmhf-glip vertebral bodies are labeled L1- L5.Alignment of the lumbar spine is within normal limits. Vertebral body height is maintained. Bone marrow edema is seen at the inferior L3 and superior L4 vertebralbodies and bilateral L4 pedicles, favored to be degenerative in nature.Suggestion of a synovial cyst at the lvkbhS63-M15 level (series 301image eight).No spinal cord signal [...] flavum buckling versus synovial cyst at the uspztK52-R48 level (series 301image eight). MRI thoracic spine can beconsidered for further evaluation.7. Mild clumping of the cauda equina nerve roots, which is nonspecificbut may represent arachnoiditis. Postcontrast imaging can be consideredfor further evaluation.Electronically Signed By: Maxim Sultana03/30/2023 12:36 CDTWorkstation Name: [id number] [id number] 11:45:01* Test Item Value Reference Range Interpretation Comme nts HEMOGLOBIN A1C ELECTROPHORESIS ([facility]) (test code = 3811) 5.7 % See_Comment [...] 5.7- 6.4% indicates increased risk for diabetes (prediabetes)."Oyster Grower ID - ADMEEG AWAKE AND FLPURL0435-69-13 09:57:53Steph Martinez MD 03/30/2023 9:[address] Type: Inpatient, outpatient, EMUDATE(s) OF EE03/30/23DATE OF REPORT: 03/30/23MRN: [id number] of : 1970EE-1454Start time: 08:36Stop time: 09:23ICD-10: R56.9 CPT Code: 89039 (awake and asleep) HISTORY: 53 y/o female [...] EEG recordings. Steph Elias MD, MPHNeurophysiology/Epilepsy AttendingCHI [facility]on Medical Center EEG AWAKE AND [id number] 09:57:53Steph Martinez MD 03/30/2023 9:59 AMELECTROENCEPHALOGRAM FOR [facility] EEG Type: Inpatient, outpatient, EMUDATE(s) OF EE03/30/23DATE OF REPORT: 03/30/23MRN: [id number] of : 1970EE-1454Start time: 08:36Stop time: :23ICD-10: R56.9 CPT Code: 02183 (awake and asleep)HISTORY: 53 y/o female with [...] EEG recordings. Steph Elias MD, MPHNeurophysiology/Epilepsy AttendingCHI [facility]on [facility] Center EEG AWAKE AND [id number] 09:57:53Steph Martinez MD 03/30/2023 9:59 AMELECTROENCEPHALOGRAM FOR [facility] EEG Type: Inpatient, outpatient, EMUDATE(s) OF EE03/30/23DATE OF REPORT: 03/30/23MRN: [id number] of : 1970EE-1454Start time: 08:36Stop time: 09:23ICD-10: R56.9 CPT Code: 09935 (awake and asleep)HISTORY: 53 y/o female with [...] of epilepsy remains, consider additional EEG recordings. Setph Elias MD, MPHNeurophysiology/Epilepsy AttendingCH[facility] EEG AWAKE AND [id number] 09:57:53Gadarcy Martinez MD 03/30/2023 9:59 AMELECTROENCEPHALOGRAM FOR [facility] EEG Type: Inpatient, outpatient, EMUDATE(s) OF EE03/30/23DATE OF REPORT: 03/30/23MRN: [id number] of : 1970EE-1454Start time: 08:36Stop time: 09:23ICD-10: R56.9 CPT Code: 08746 (awake and asleep)HISTORY: 53 y/o female with [...] EEG recordings. Steph Elias MD, MPHNeurophysiology/Epilepsy AttendingCHI [facility] Center VALPROIC ACID LEVEL, [id number] 09:42:31* Test Item Value Reference Range Interpretation Comme nts VALPROIC ACID TOTAL (BEAKER) (test code = 924) 76 ug/mL 50-100 Therapeutic range for some clinical conditions may be >100 ug/mLUrinalysis w/Microscopic + Reflex to [id number] 08:43:51* Test Item Value Reference Range Interpretation Comme nts Color, UA (test code = 5778-6) Yellow Clarity, UA (test code = 5767-9) Clear Specific [place], UA (test code = 5811-5) 1.033 1.001-1.035 pH, UA (test code = 5803-2) 6.0 5.0-8.0 Protein, UA (test code = 15919-2) 30 mg/dL Negative A Glucose, UA (test code = 365) Negative Negative Ketones, UA (test code = 2514-8) Negative Negative Bilirubin, UA (test code = 68029-1) Negative Negative Blood, UA (test code = 73512-0) Small Negative A Nitrite, UA (test code = 5802-4) Negative Negative Leukocytes, UA (test code = 5799-2) Negative Negative Urobilinogen, UA (test code = 55171-9) 0.2 0.2-1.0 RBC, UA (test code = 17644-8) 51 See_Comment [Automated message] The system which [...] Occasional Squam Epithel, UA (test code = 22131-1) See_Comment [Automated message] The system which generated this result transmitted reference range: /HPF. The reference range was not used to interpret this result as normal/abnormal. Specimen Source (test code = 2795) LYNDSAY (test code = LYNDSAY) Oyster Grower ID - [auto]Oyster Grower ID - tech Lab Interpretation (test code = 43049-2) Abnormal [facility] CenterURINALYSIS W/ REFLEX URINE [id number] 08:43:51 * Test Item Value Reference Range [...] < /HPF SOURCE(BEAKER) (test code = 2795) Oyster Grower ID - [auto]Oyster Grower ID - techCOMPREHENSIVE METABOLIC [id number] 04:37:29* Test Item Value Reference Range Interpretation [...] GFR is not applicable for dialysis patients Oyster Grower ID - MATT BPT/AZKN6405-61-46 04:30:17* Test Item Value Reference Range Interpretation Comme nts PROTIME (BEAKER) (test code = 759) 13.8 seconds 11.9-14.2 INR (BEAKER) (test code = 370) 1.13 See_Comment [Automated PiAutoa ge] The system which generated this result [...] code = 413) 0 /100 WBC 0-0 [id number]-YJGAWZF1503-71-10 00:00:00Ordered by an unspecified provider.[facility] BfzqkhMFYOMCGJH5115-37-37 17:14:06* Test Item Value Reference Range Interpretation Comme nts MAGNESIUM (test code = 7970688221) 1.9 mg/dL 1.7-2.4 Lab Interpretation (test cod e = 77910-1) Normal [facility]. METABOLIC PANEL (16286)2022-12-11 15:16:25* Test Item Value Reference Range Interpretation Comme nts NA (test code = 9898996345) 139 mmol/L 135-145 K (test code = 0868930819) 3.5 mmol/L 3.5-5.0 CL (test code = 1589971202) 107 mmol/L 98-108 CO2 TOTAL (test code = 9610013881) 24 mmol/L 23-31 AGAP (test code = 5901363328) 8 2-16 BUN (test code = 1880798190) 9 mg/dL 7-23 GLUCOSE (test code = 6350300103) 129 mg/dL 70-110 H CREATININE (test code = 9738735540) 0.68 mg/dL 0.50-1.04 TOTAL BILI (test code = 0750341755) 0.5 mg/dL 0.1-1.1 CALCIUM (test code = 3337170496) 8.9 mg/dL 8.6-10.6 T PROTEIN (test code = 5459845760) 6.3 g/dL 6.3-8.2 ALBUMIN (test code = 3603139882) 3.8 g/dL 3.5-5.0 ALK PHOS (test code = 5345612855) 87 U/L 34-122 ALTv (test code = 1742-6) 24 U/L 5-35 AST(SGOT) (test code = 5225114214) 21 U/L 13-40 eGFR (test code = 0191448337) 91.6 mL/min/1.73m2 LYNDSAY (test code = LYNDSAY) [...] imaging tests). Lab Interpretation (test code = 14580-3) Abnormal [facility]villeTROPONIN [id number] 15:10:45* Test Item Value Reference Range Interpretation Comme nts TROPONIN I (test code = 3798342657) 0.015 ng/mL <=0.034 LYNDSAY (test code = [...] of biotin. Lab Interpretation (test code = 71569-4) Normal [facility] StephenvilleN-TERMINAL QBM-[id number] 15:07:48* Test Item Value Reference Range Interpretation Comme nts NT-proBNP (test code = 9963155416) 1460 pg/mL <=125 H LYNDSAY (test code = LYNDSAY) Biotin has been reported to cause a negative bias, interpret results relative to patient's use of biotin. Lab Interpretation (test code = 40682-7) Abnormal [facility] StephenvilleD-MSRJS1586-77-38 14:45:24* Test Item Value Reference Range Interpretation Comments D-DIMER (test code = 1268007282) 0.99 See_Comment H [Automated message] The system [...] a diagnosis. Lab Interpretation (test code = 85116-1) Abnormal [facility] StephenvilleCBC WITH [id number] 14:14:48* Test Item Value Reference Range Interpretation Comme nts WBC (test code = 6690-2) 7.86 See_Comment [Automated Gentis] The system which generated this result transmitted reference range: 4.30 - 11.10 10*3/?L. The reference range was not used to interpret this result as normal/abnormal. RBC (test code = 789-8) 5.13 See_Comment [Automated Gentis] The system which generated this result transmitted [...] g/dL 31.6-35.1 L RDW-SD (test code = 49484-8) 47.8 fL 39.0-49.9 RDW-CV (test code = 788-0) 16.9 % 12.0-15.5 H PLT (test code = 777-3) 507 See_Comment H [Automated messa ge] The system which generated this result transmitted reference range: 166 - 358 10*3/?L. The reference range was not used to interpret this result as normal/abnormal. MPV (test code = 57790-3) 8.2 fL 9.5-12.9 L NRBC/100 WBC (test code = 7087973575) 0.0 See_Comment [Automated Definiens ssage] The system which generated this result transmitted reference range: 0.0 - 10.0 /100 WBCs. The reference range was not used to interpret this result as normal/abnormal. NRBC x10^3 (test code = 1967358795) See_Comment [Automated messa ge] The system which generated this result transmitted reference range: 10*3/?L. The reference range was not used to interpret this result as normal/abnormal. GRAN MAT (NEUT) % (test code = 770-8) 64.5 % IMM GRAN % (test code = 0166174573) 0.30 % LYMPH % (test code = 736-9) 25.6 % MONO % (test code = 5905-5) 7.5 % EOS % (test code = 713-8) 1.0 % BASO % (test code = 706-2) 1.1 % GRAN MAT x10^3(ANC) (test code = 5749912696) 5.07 10*3/uL 1.88-7.09 IMM GRAN x10^3 (test code = 4801998719) 0.00-0.06 LYMPH x10^3 (test code = 731-0) 2.01 10*3/uL 1.32-3.29 MONO x10^3 (test code = 742-7) 0.59 10*3/uL 0.33-0.92 EOS x10^3 (test code = 711-2) 0.08 10*3/uL 0.03-0.39 BASO x10^3 (test code = 704-7) 0.09 10*3/uL 0.01-0.07 H Lab Interpretation (test code = 40510-7) Abnormal [facility] StephenvilleRPR2023-01-17 13:17:22* Test Item Value Reference Range Interpretation Comme nts RPR SCREEN (LATOYA) (test co de = 420) Nonreactive Nonreactive HEMOGLOBIN [id number] 10:39:49* Test Item Value Reference Range Interpretation [...] 5.7- 6.4% indicates increased risk for diabetes (prediabetes)."Oyster Grower ID - ADM VITAMIN [id number] 22:48:27* Test Item Value Reference Range Interpretation Comme nts VITAMIN B12 (LATOYA) (test c ode = 774) 227 pg/mL 213-816 Oyster Grower ID - MARCOTSH/FREE T4 IF LQQRCSINY7539-90-07 22:08:28* Test Item Value Reference Range Interpretation Comme nts THYROID STIMULATING HORMONE (LATOYA) (test code = 772) 3.309 uIU/mL 0.350-4.940 Oyster Grower ID - JSHIV-1 ANTIGEN WITH HIV-1/2 VQOKZGRC5373-34-24 22:08:28* Test Item Value Reference Range Interpretation Comme nts HIV-1 ANTIGEN WITH HIV 1\\T\\2 ANTIBODY (2) (LATOYA) (test code = 2586) Nonreactive Nonreactive Oyster Grower ID - JSC-REACTIVE IADOFGT0006-52-34 21:49:44* Test Item Value Reference Range Interpretation Comme nts C-REACTIVE PROTEIN (LATYOA) (test code = 676) 0.35 mg/dL 0.00-0.50 Oyster Grower ID - JSCOMPREHENSIVE METABOLIC [id number] 21:49:43* Test Item Value Reference Range Interpretation [...] GFR is not applicable for dialysis patients Oyster Grower ID - JSLIPID HCIOG1314-47-79 21:49:43* Test Item Value Reference Range Interpretation [...] Borderline 130-159 High 160-189 Very High >=190 Oyster Grower ID - JSCBC W/PLT COUNT & AUTO IWQOQOZVXOWZ7342-82-05 21:34:03* Test Item Value Reference Range Interpretation [...] Interpretation Comme nts Height (test code = 1216036848) in Weight (test code = 1897119526) lbs Systolic BP (test code = 0614675786) mmHg Diastolic BP (test code = 0616085496) mmHg Heart Rate (test code = 4581430595) bpm BSA (test code = 0380262566) 2.00 m2 Ao root diam (test code = 6015451525) 3.20 cm Aortic root (test code = 2086876893) 3.2 cm Ao root annulus (test code = 6422058703) 3.2 cm LVOT diameter (test code = 2914575959) 1.99 cm LVOT area (test code = 1989508235) 3.10 cm2 LVIDD (test code = 5369386257) 5.10 cm Left Ventricular End Diastolic Volume by Teichholz Method (test code = 0634217) 123.0 mL IVS (test code = 8149766983) 1.34 cm Interventricular Septum Diastolic Thickness by 2D (test code = 3988795) 1.34 cm LVPWD (test code = 9230638766) 1.34 cm PW (test code = 6019244712) 1.34 cm 0.6-1.1 EF(Teich) (test code = 7538947857) 41.80 % LVIDS (test code = 5765995769) 4.00 cm Left Ventricular End Systolic Volume by Teichholz Method (test code = 5010715) 71.5 mL FS (test code = 5702873591) 21 % EF - 2D (test code = 75405510) 41.80 % LA size (test code = 7072535003) 4.6 cm Pulmonic Regurgitant End Max Velocity (test code = 6415343806) 119.4 cm/s LAV(MOD-sp4) (test code = 6375937061) 95.00 mL E wave decelartion time (test code = 6784894040) 0.15 s MV stenosis pressure 1/2 time (test code = 3476118506) 45.6 ms MV Peak A Evette (test code = 5313687214) 123.8 cm/s MV Peak E Evette (test code = 9149739393) 109.7 cm/s E/A ratio (test code = 9065850227) ratio MR max PG (test code = 5989392788) 87.20 mm[Hg] MR max evette (test code = 9477255670) 466.90 cm/s Mr max evette (test code = 0824345962) 466.9 m/s MV Prop V (test code = 3076152000) 51.00 cm/s MV E/e' septal (test code = 5500369668) 8.1 cm/s Tapse (test code = 3910393293) 2.21 cm LVOT stroke volume (test code = 8531384285) 49.80 cm3 LVOT peak evette (test code = 5146504519) 89.1 cm/s LVOT mn grad (test code = 8006204476) mmHg AV LVOT peak gradient (test code = 6609119724) mmHg LVOT peak VTI (test code = 9492794388) 16.0 cm LV V1 mean (test code = 1271120697) 64.30 cm/s Aortic valve mean velocity (test code = 8657152343) 133.8 cm/s Ao peak evette (test code = 4206098881) 175.3 cm/s Ao VTI (test code = 2376536809) 32.2 cm AV area by cont VTI (test code = 2430873675) 1.6 cm2 AV area peak evette (test code = 7311948521) 1.6 cm2 Ao max PG (test code = 4334590274) 12.30 mm[Hg] AV peak gradient (test code = 6599841394) mmHg AV valve area (test code = 2176591325) 1.55 cm2 AV mean gradient (test code = 7417674803) mmHg AV regurgitation pressure 1/2 time (test code = 3433718253) 358.5 ms AI dec slope (test code = 9304353407) 364.20 cm/s2 AI max evette (test code = 3350680524) 445.80 cm/s AI max PG (test code = 3789716208) 79.50 mm[Hg] Radiology Study observation (narrative) (test code = 85468-3) LYNDSAY (test code = LYNDSAY) ?Left?Ventricle: Left [...] Lumason ultrasound enhancing agent used. [facility]villePOCT GLUCOSE (AUTOMATED)2022-08-01 10:43:32* Test Item Value Reference Range Interpretation Comme [facility] POCT GLU (test code = 7603254397) 148 mg/dL 70-110 H Lab Interpretation (test cod e = 26657-3) Abnormal [facility] StephenvilleACTIVATED PARTIAL THRMPLAS [id number] 18:39:45* Test Item Value Reference Range Interpretation [...] 30 seconds. Lab Interpretation (test code = 87863-2) Normal [facility] StephenvillePROTHROMBIN TIME / [id number] 18:37:42* Test Item Value Reference Range Interpretation Comme [facility] PROTIME PATIENT (test code = 5964-2) See_Comment [Automated [employer]] The system which generated this result transmitted reference range: 12.0 - 14.7 Seconds. The reference range was not used to interpret this result as normal/abnormal. INR (test code = 6301-6) Normal INR <1.1; Warfarin Therapeutic range 2.0 to 3.0 or 2.5 to 3.5, depending upon the indications. Lab Interpretation (test code = 95269-7) Normal [facility] StephenvilleTROPONIN [id number] 18:32:01* Test Item Value Reference Range Interpretation Comments TROPONIN I (test code = 6836072018) 0.019 ng/mL See_Comment [Automated message] The system [...] of biotin. Lab Interpretation (test code = 80743-3) Normal [facility] StephenvilleN-TERMINAL [id number]-[id number] 18:29:01* Test Item Value Reference Range Interpretation Comme nts NT-proBNP (test code = 0647023065) 2770 pg/mL See_Comment H [Automated message] The system which generated this result transmitted reference range: <=125. The reference range was not used to interpret this result as normal/abnormal. LYNDSAY (test code = LYNDSAY) Biotin has been reported to cause a negative bias, interpret results relative to patient's use of biotin. Lab Interpretation (test code = 63123-8) Abnormal [facility] StephenvilleCOMP. METABOLIC PANEL (19026)2022-07-31 18:21:42* Test Item Value Reference Range Interpretation Comme nts NA (test code = 0184577838) 136 mmol/L 135-145 K (test code = 8076405247) 4.6 mmol/L 3.5-5.0 CL (test code = 7223161810) 104 mmol/L 98-108 CO2 TOTAL (test code = 3440783470) 26 mmol/L 23-31 AGAP (test code = 0117402142) 2-16 BUN (test code = 6766654681) 9 mg/dL 7-23 GLUCOSE (test code = 3228457394) 97 mg/dL 70-110 CREATININE (test code = 4742397416) 0.64 mg/dL 0.50-1.04 TOTAL BILI (test code = 3717103462) 0.5 mg/dL 0.1-1.1 CALCIUM (test code = 2715680636) 8.2 mg/dL 8.6-10.6 L T PROTEIN (test code = 8743186011) 6.5 g/dL 6.3-8.2 ALBUMIN (test code = 5661495914) 3.9 g/dL 3.5-5.0 ALK PHOS (test code = 7810474554) 93 U/L 34-122 ALTv (test code = 1742-6) 18 U/L 5-35 AST(SGOT) (test code = 4695210230) 19 U/L 13-40 eGFR (test code = 2491772128) mL/min/1.73m2 LYNDSAY (test code = LYNDSAY) Association [...] imaging tests). Lab Interpretation (test code = 60706-4) Abnormal [facility] StephenvilleLIPASE2023-01-12 18:21:01* Test Item Value Reference Range Interpretation Comme nts LIPASE (test code = 0043835956) 54 U/L 0-220 Lab Interpretation (test cod e = 63110-3) Normal [facility] StephenvilleCB WITH [id number] 18:07:00* Test Item Value Reference Range Interpretation Comme nts WBC (test code = 6690-2) See_Comment [Automated Gentis] The system which generated this result transmitted [...] g/dL 31.6-35.1 L RDW-SD (test code = 16625-6) 53.1 fL 39.0-49.9 H RDW-CV (test code = 788-0) 17.0 % 12.0-15.5 H PLT (test code = 777-3) See_Comment H [Automated messa ge] The system which generated this result transmitted reference range: 166 - 358 10*3/?L. The reference range was not used to interpret this result as normal/abnormal. MPV (test code = 37761-9) 8.2 fL 9.5-12.9 L NRBC/100 WBC (test code = 2392035508) See_Comment [Automated Definiens ssage] The system which generated this result transmitted reference range: 0.0 - 10.0 /100 WBCs. The reference range was not used to interpret this result as normal/abnormal. NRBC x10^3 (test code = 1525404828) See_Comment [Automated messa ge] The system which generated this result transmitted reference range: 10*3/?L. The reference range was not used to interpret this result as normal/abnormal. GRAN MAT (NEUT) % (test code = 770-8) 64.0 % IMM GRAN % (test code = 1765516130) 0.40 % LYMPH % (test code = 736-9) 27.3 % MONO % (test code = 5905-5) 6.5 % EOS % (test code = 713-8) 1.1 % BASO % (test code = 706-2) 0.7 % GRAN MAT x10^3(ANC) (test code = 1568537932) 5.46 10*3/uL 1.88-7.09 IMM GRAN x10^3 (test code = 5342742861) 0.03 10*3/uL 0.00-0.06 LYMPH x10^3 (test code = 731-0) 2.32 10*3/uL 1.32-3.29 MONO x10^3 (test code = 742-7) 0.55 10*3/uL 0.33-0.92 EOS x10^3 (test code = 711-2) 0.09 10*3/uL 0.03-0.39 BASO x10^3 (test code = 704-7) 0.06 10*3/uL 0.01-0.07 Lab Interpretation (test code = 12017-6) Abnormal [facility] METABOLIC PANEL (NA, K, CL, CO2, GLUCOSE, BUN, CREATININE, CA)2022-05-08 06:37:01* Test Item Value Reference Range Interpretation Comme nts NA (test code = 3379973078) 137 mmol/L 135-145 K (test code = 7805422657) 3.8 mmol/L 3.5-5 CL (test code = 8002212588) 103 mmol/L 98-108 CO2 TOTAL (test code = 2769912385) 24 mmol/L 23-31 AGAP (test code = 2526111147) 2-16 BUN (test code = 6477559982) 13 mg/dL 7-23 GLUCOSE (test code = 9848074452) 90 mg/dL 70-110 CREATININE (test code = 2744982380) 0.69 mg/dL 0.5-1.04 CALCIUM (test code = 4450464250) 8.5 mg/dL 8.6-10.6 L eGFR (test code = 9138341315) mL/min/1.73m2 LYNDSAY (test code = LYNDSAY) Association [...] imaging tests). Lab Interpretation (test code = 25148-8) Abnormal [facility] StephenvilleMAGNESIUM2022-10-20 06:37:01* Test Item Value Reference Range Interpretation Comme nts MAGNESIUM (test code = 9274627819) 2.1 mg/dL 1.7-2.4 Lab Interpretation (test cod e = 37580-9) Normal [facility] StephenvillePHOSPHORUS2022-10-20 06:37:01* Test Item Value Reference Range Interpretation Comme nts PHOSPHORUS (test code = 3628628861) 4.7 mg/dL 2.5-5 Lab Interpretation (test cod e = 37922-0) Normal [facility] StephenvilleCB WITH [id number] 06:11:54* Test Item Value Reference Range Interpretation Comme nts WBC (test code = 6690-2) See_Comment [Automated Gentis] The system which generated this result transmitted reference range: 4.30 - 11.10 10*3/?L. The reference range was not used to interpret this result as normal/abnormal. RBC (test code = 789-8) See_Comment [Automated PiAutoa ge] The system which generated this result [...] 32.4 g/dL 31.6-35.1 RDW-SD (test code = 68615-1) 51.0 fL 39-49.9 H RDW-CV (test code = 788-0) 16.5 % 12-15.5 H PLT (test code = 777-3) See_Comment H [Automated messa ge] The system which generated this result transmitted reference range: 166 - 358 10*3/?L. The reference range was not used to interpret this result as normal/abnormal. MPV (test code = 94815-2) 8.3 fL 9.5-12.9 L NRBC/100 WBC (test code = 0231529076) See_Comment [Automated Definiens ssage] The system which generated this result transmitted reference range: 0.0 - 10.0 /100 WBCs. The reference range was not used to interpret this result as normal/abnormal. NRBC x10^3 (test code = 8060957898) See_Comment [Automated PiAutoa ge] The system which generated this result transmitted reference range: 10*3/?L. The reference range was not used to interpret this result as normal/abnormal. GRAN MAT (NEUT) % (test code = 770-8) 64.5 % IMM GRAN % (test code = 5536836145) 0.50 % LYMPH % (test code = 736-9) 27.1 % MONO % (test code = 5905-5) 6.6 % EOS % (test code = 713-8) 0.6 % BASO % (test code = 706-2) 0.7 % GRAN MAT x10^3(ANC) (test code = 4724464524) 5.28 10*3/uL 1.88-7.09 IMM GRAN x10^3 (test code = 6213038397) 0.04 10*3/uL 0-0.06 LYMPH x10^3 (test code = 731-0) 2.22 10*3/uL 1.32-3.29 MONO x10^3 (test code = 742-7) 0.54 10*3/uL 0.33-0.92 EOS x10^3 (test code = 711-2) 0.05 10*3/uL 0.03-0.39 BASO x10^3 (test code = 704-7) 0.06 10*3/uL 0.01-0.07 Lab Interpretation (test code = 60948-4) [facility] 01:18:10* Test Item Value Reference Range Interpretation Comme nts POCT GLU (test code = [id number]) 120 mg/dL 70-110 H Lab Interpretation (test cod e = 49846-2) [facility]normal [facility]villeType and Screen - ONCE [id number] 05:46:35* Test Item Value Reference Range Interpretation Comme nts ABO & RH (test code = 20) O POSITIVE Performed at [facility] Laboratory Services [facility] Blood [address] Free: [phone] No. [id number] IAT (test code = 1185) Negative Performed at [facility] Laboratory Services [facility] Blood [address] Free: [phone] No. [id number] [facility]villeBASIC METABOLIC PANEL (NA, K, CL, CO2, GLUCOSE, BUN, CREATININE, CA)2022-05-05 08:22:57* Test Item Value Reference Range Interpretation Comme nts NA (test code = 2583934370) 136 mmol/L 135-145 K (test code = 5673590766) 4.9 mmol/L 3.5-5 CL (test code = 8129007299) 108 mmol/L 98-108 CO2 TOTAL (test code = 3986897818) 22 mmol/L 23-31 L AGAP (test code = 6285849534) 2-16 BUN (test code = 1949177656) 12 mg/dL 7-23 GLUCOSE (test code = 1928676329) 155 mg/dL 70-110 H CREATININE (test code = 0867108545) 0.63 mg/dL 0.5-1.04 CALCIUM (test code = 0351693216) 8.4 mg/dL 8.6-10.6 L eGFR (test code = 5388938007) mL/min/1.73m2 LYNDSAY (test code = LYNDSAY) Association [...] imaging tests). Lab Interpretation (test code = 46494-4) Abnormal [facility]villePROTHROMBIN TIME / [id number] 08:22:37* Test Item Value Reference Range Interpretation [...] the indications. Lab Interpretation (test code = 33382-1) Normal [facility]villeaPTT2022-10-17 08:22:37* Test Item Value Reference Range Interpretation Comme nts APTT Patient (test code = 3173-2) See_Comment [Automated [employer]] The system which generated this result transmitted reference range: 26 - 36 Seconds. The reference range was not used to interpret this result as normal/abnormal. Lab Interpretation (test code = 17302-5) Normal [facility]villeFIBRINOGEN2022-10-17 08:22:37* Test Item Value Reference Range Interpretation Comme [facility] Fibrinogen (test code = 3108612771) 294 mg/dL 167-453 Lab Interpretation (test cod e = 22221-1) Normal [facility]villeCB WITH [id number] 08:15:01* Test Item Value Reference Range Interpretation Comme [facility] WBC (test code = 6690-2) See_Comment [Automated [employer]] The system which generated this result transmitted reference range: 4.30 - 11.10 10*3/?L. The reference range was not used to interpret this result as normal/abnormal. RBC (test code = 789-8) See_Comment [Automated [employer]] The system which generated this result transmitted [...] g/dL 31.6-35.1 L RDW-SD (test code = 82893-6) 52.9 fL 39-49.9 H RDW-CV (test code = 788-0) 16.8 % 12-15.5 H PLT (test code = 777-3) See_Comment H [Automated messa ge] The system which generated this result transmitted reference range: 166 - 358 10*3/?L. The reference range was not used to interpret this result as normal/abnormal. MPV (test code = 07673-8) 8.3 fL 9.5-12.9 L NRBC/100 WBC (test code = 7872635897) See_Comment [Automated me ssage] The system which generated this result transmitted reference range: 0.0 - 10.0 /100 WBCs. The reference range was not used to interpret this result as normal/abnormal. NRBC x10^3 (test code = 6981754181) See_Comment [Automated messa ge] The system which generated this result transmitted reference range: 10*3/?L. The reference range was not used to interpret this result as normal/abnormal. GRAN MAT (NEUT) % (test code = 770-8) 86.4 % IMM GRAN % (test code = 3298095288) 0.40 % LYMPH % (test code = 736-9) 11.7 % MONO % (test code = 5905-5) 1.1 % EOS % (test code = 713-8) 0.0 % BASO % (test code = 706-2) 0.4 % GRAN MAT x10^3(ANC) (test code = 9697621605) 6.36 10*3/uL 1.88-7.09 IMM GRAN x10^3 (test code = 9798771784) 0.03 10*3/uL 0-0.06 LYMPH x10^3 (test code = 731-0) 0.86 10*3/uL 1.32-3.29 L MONO x10^3 (test code = 742-7) 0.08 10*3/uL 0.33-0.92 L EOS x10^3 (test code = 711-2) 0.03-0.39 L BASO x10^3 (test code = 704-7) 0.03 10*3/uL 0.01-0.07 Lab Interpretation (test code = 37820-4) Abnormal [facility]villeVITAMIN D, [id number] 20:14:03* Test Item Value Reference Range Interpretation Comme [facility] VIT D 25OH (test code = 83939-3) 22 ng/mL 25-80 L LYNDSAY (test code = LYNDSAY) Deficiency: <20 ng/mLInsufficiency: 20-24 ng/mLOptimal: 25-80 ng/mL Lab Interpretation (test code = 62853-9) Abnormal [facility] StephenvilleBASI METABOLIC PANEL (NA, K, CL, CO2, GLUCOSE, BUN, CREATININE, CA)2022-04-15 11:27:57* Test Item Value Reference Range Interpretation Comme [facility] NA (test code = 4046714878) 138 mmol/L 135-145 K (test code = 5393328844) 3.9 mmol/L 3.5-5 CL (test code = 9306655816) 106 mmol/L 98-108 CO2 TOTAL (test code = 0580154397) 23 mmol/L 23-31 AGAP (test code = 9322542382) 2-16 BUN (test code = 3007403517) 10 mg/dL 7-23 GLUCOSE (test code = 5659512100) 91 mg/dL 70-110 CREATININE (test code = 4957608025) 0.65 mg/dL 0.5-1.04 CALCIUM (test code = 2616703495) 8.1 mg/dL 8.6-10.6 L eGFR (test code = 8828441345) mL/min/1.73m2 LYNDSAY (test code = LYNDSAY) Association [...] imaging tests). Lab Interpretation (test code = 12263-3) Abnormal [facility]villeSTROKE Protocol - Transthoracic echo (TTE) 2022-04-14 22:07:33* Test Item Value Reference Range Interpretation Comme nts Height (test code = 6764083220) in Weight (test code = 4215489304) lbs Systolic BP (test code = 9133865046) mmHg Diastolic BP (test code = 6934579566) mmHg Heart Rate (test code = 2081840741) bpm BSA (test code = 5416854295) 1.94 m2 TASV (test code = 3716706452) 15.5 cm/s LVIDD (test code = 8056686869) 6.00 cm Left Ventricular End Diastolic Volume by Teichholz Method (test code = 0037617) 183.0 mL IVS (test code = 7912460355) 1.09 cm Interventricular Septum Diastolic Thickness by 2D (test code = 6474345) 1.09 cm LVPWD (test code = 0234863397) 0.94 cm PW (test code = 5511865381) 0.94 cm 0.6-1.1 EF(Teich) (test code = 7616031996) 40.30 % LVIDS (test code = 2387981823) 4.80 cm Left Ventricular End Systolic Volume by Teichholz Method (test code = 7437206) 109.2 mL FS (test code = 2788097162) 20 % EF - 2D (test code = 98820355) 40.30 % LVOT diameter (test code = 5988759646) 2.05 cm LVOT area (test code = 2851716380) 3.30 cm2 Ao root diam (test code = 4336693079) 3.10 cm Aortic root (test code = 0925801711) 3.1 cm Ao root annulus (test code = 1667299363) 3.1 cm LA size (test code = 7905435249) 4.2 cm LAV(MOD-sp4) (test code = 1261730477) 64.90 mL MV Peak A Evette (test code = 5732689922) 115.7 cm/s E wave decelartion time (test code = 2337022229) 0.15 s MV Peak E Evette (test code = 1679746388) 106.2 cm/s E/A ratio (test code = 3248935410) ratio LVOT stroke volume (test code = 1868897613) 48.30 cm3 LVOT peak evette (test code = 2618862166) 78.4 cm/s LVOT mn grad (test code = 6413523305) mmHg AV LVOT peak gradient (test code = 3479064899) mmHg LVOT peak VTI (test code = 3480655857) 14.7 cm LV V1 mean (test code = 6273965256) 51.40 cm/s Ao peak evette (test code = 2698324809) 154.7 cm/s AV area peak evette (test code = 6726646373) 1.7 cm2 Ao max PG (test code = 9688043535) 9.60 mm[Hg] AV peak gradient (test code = 5470482644) mmHg AV regurgitation pressure 1/2 time (test code = 9332436894) 257.3 ms AI dec slope (test code = 2860780426) 498.10 cm/s2 AI max evette (test code = 6829523036) 437.60 cm/s AI max PG (test code = 5279356986) 77.80 mm[Hg] Tapse (test code = 6775414501) 2.19 cm LA Volume Index (BP) (test code = 1652976449) 32.0 mL/m2 LA volume (BP) (test code = 5176675261) 62.1 mL LAV(MOD-sp2) (test code = 5212125462) 52.70 mL A4C EF (test code = 3336471188) 44.80 % EF(sp4-el) (test code = 8557054591) 45.20 % SV(MOD-sp4) (test code = 5900436193) 71.20 mL SV(sp4-el) (test code = 5459361824) 73.90 mL LV Diastolic Volume (BP) (test code = 1393819922) 146.3 mL A2C EF (test code = 6634325652) 52.00 % EF(MOD-bp) (test code = 3660685592) 46.70 % EF(sp2-el) (test code = 5607218917) 52.40 % LV Systolic Volume (BP) (test code = 3716261027) 77.9 mL SV(MOD-bp) (test code = 4147898555) 68.40 mL SV(MOD-sp2) (test code = 3354901468) 69.20 mL EF (test code = 8446967290) Left Ventricular Stroke Volume by 2-D Biplane-MOD (test code = 6291979) 68.4 mL Radiology Study observation (narrative) (test code = 49267-0) LYNDSAY (test code = LYNDSAY) ?Left?Ventricle: Left [...] and saline contrast was performed. [facility]villeKEPPRA (LEVETIRACETAM)2022-04-14 16:48:36* Test Item Value Reference Range Interpretation Comme nts KEPPRA (test code = 5461594488) 12-46 L LYNDSAY (test code = LYNDSAY) Therapeutic range: 12-46 ?g/mL ? ?Toxic: Not well established.Test developed and characteristics determined by [facility] Laboratory Services. Lab Interpretation (test code = 80961-0) Abnormal [facility] Metabolic Panel (Na, K, Cl, CO2, Glucose, BUN, Creatinine, Ca)2022-04-14 10:50:11* Test Item Value Reference Range Interpretation Comme [facility] NA (test code = 2257615982) 136 mmol/L 135-145 K (test code = 7029795282) 3.8 mmol/L 3.5-5 CL (test code = 3492801783) 105 mmol/L 98-108 CO2 TOTAL (test code = 5885841810) 25 mmol/L 23-31 AGAP (test code = 7891743428) 2-16 BUN (test code = 9666920855) 9 mg/dL 7-23 GLUCOSE (test code = 8699709672) 101 mg/dL 70-110 CREATININE (test code = 9707252629) 0.66 mg/dL 0.5-1.04 CALCIUM (test code = 6950861873) 8.1 mg/dL 8.6-10.6 L eGFR (test code = 7396770496) mL/min/1.73m2 LYNDSAY (test code = LYNDSAY) Association [...] imaging tests). Lab Interpretation (test code = 46855-8) Abnormal [facility] StephenvilleMagensium, [id number] 10:50:11* Test Item Value Reference Range Interpretation Comme nts MAGNESIUM (test code = 9986404692) 1.9 mg/dL 1.7-2.4 Lab Interpretation (test cod e = 08625-9) Normal [facility] StephenvilleThyroid Stimulating [id number] 22:21:44 * Test Item Value Reference Range Interpretation Comme nts TSH (test code = 1388402617) See_Comment Biotin has been reported to cause a negative bias, interpret results relative to patient's use of biotin. [Automated message] The system which generated this result transmitted reference range: 0.45 - 4.70 mIU/L. The reference range was not used to interpret this result as normal/abnormal. Lab Interpretation (test code = 02720-4) Normal [facility] StephenvilleGLYCOSYLATED HEMOGLOBIN (A1C)2022-04-13 21:53:43* Test Item Value Reference Range Interpretation Comme nts HGB A1C (test code = 4548-4) 5.8 % 4-5.7 H LYNDSAY (test code = LYNDSAY) Reference RangesNormal: <5.7%Prediabetes: 5.7 - 6.4%Diabetes: > 6.5% Lab Interpretation (test code = 27373-4) Abnormal [facility] StephenvilleFASTING LIPID PANEL (25282)(TOTAL CHOLESTEROL, TRIGLYCERIDES, HDL)2022-04-13 21:34:53* Test Item Value Reference Range Interpretation Comme nts CHOL (test code = 7408986773) 201 mg/dL 120-200 H HDL (test code = 7645389382) 56 mg/dL See_Comment [Automated [employer]] The system which generated this result transmitted reference range: >=50. The reference range was not used to interpret this result as normal/abnormal. HDLC RATIO (test code = 6018518668) See_Comment [Automated [employer]] The system which generated this result transmitted reference range: <=4.5. The reference range was not used to interpret this result as normal/abnormal. TRIG (test code = 7424438140) 355 mg/dL 30-170 H LDL CHOL (test code = 86193-3) 74 mg/dL See_Comment [Automated [employer]] The system which generated this result transmitted reference range: <=160. The reference range was not used to interpret this result as normal/abnormal. VLDL (test code = 5119344694) 71 mg/dL 5-60 H Lab Interpretation (test code = 72436-0) Abnormal [facility] StephenvilleTroponin I - Code [id number] 18:46:27* Test Item Value Reference Range Interpretation Comments TROPONIN I (test code = 5804008607) 0.013 ng/mL See_Comment [Automated message] The system [...] of biotin. Lab Interpretation (test code = 15337-0) Normal [facility] Metabolic Panel (NA, K, CL, CO2, Glucose, BUN, Creatinine, CA) - Code [id number] 18:35:07* Test Item Value Reference Range Interpretation Comme nts NA (test code = 5722741911) 136 mmol/L 135-145 K (test code = 2090982687) 4.3 mmol/L 3.5-5 CL (test code = 0753116303) 105 mmol/L 98-108 CO2 TOTAL (test code = 2210902281) 27 mmol/L 23-31 AGAP (test code = 5902830383) 2-16 BUN (test code = 1065991310) 8 mg/dL 7-23 GLUCOSE (test code = 7894788641) 130 mg/dL 70-110 H CREATININE (test code = 6870082521) 0.75 mg/dL 0.5-1.04 CALCIUM (test code = 6038709025) 8.5 mg/dL 8.6-10.6 L eGFR (test code = 7699280134) mL/min/1.73m2 LYNDSAY (test code = LYNDSAY) Association [...] imaging tests). Lab Interpretation (test code = 08465-7) Abnormal [facility]villeaPTT - Code [id number] 18:32:46* Test Item Value Reference Range Interpretation [...] 30 seconds. Lab Interpretation (test code = 93393-5) Normal [facility] StephenvilleProthrombin Time / INR - Code [id number] 18:30:45* Test Item Value Reference Range Interpretation [...] the indications. Lab Interpretation (test code = 40387-3) Normal [facility] StephenvilleCBC without Diff - Code Mhhlll6772-03-85 18:23:07* Test Item Value Reference Range Interpretation [...] result as normal/abnormal. MPV (test code = 10251-9) 8.1 fL 9.5-12.9 L RDW-CV (test code = 788-0) 16.1 % 12-15.5 H RDW-SD (test code = 33907-4) 49.2 fL 39-49.9 NRBC x10^3 (test code = 5493374245) See_Comment [Automated [employer] ge] The system which generated this result transmitted reference range: 10*3/?L. The reference range was not used to interpret this result as normal/abnormal. NRBC/100 WBC (test code = 2623892368) See_Comment [Automated [employer] ge] The system which generated this result transmitted reference range: 0.0 - 10.0 /100 WBCs. The reference range was not used to interpret this result as normal/abnormal. IPF % (test code = 1293760357) Lab Interpretation (test code = 37544-3) Abnormal [facility] [id number] 21:06:40* Test Item Value Reference Range Interpretation Comments TROPONIN I (test code = 4950442366) 0.005 ng/mL See_Comment [Automated message] The system [...] of biotin. Lab Interpretation (test code = 35206-2) Normal [facility]. METABOLIC PANEL (16892)2021-11-23 20:55:42* Test Item Value Reference Range Interpretation Comme nts NA (test code = 7750591898) 137 mmol/L 135-145 K (test code = 3234786579) 4.3 mmol/L 3.5-5.0 CL (test code = 5252827803) 104 mmol/L 98-108 CO2 TOTAL (test code = 7294793101) 22 mmol/L 23-31 L AGAP (test code = 8901704302) 2-16 BUN (test code = 0076566779) 15 mg/dL 7-23 GLUCOSE (test code = 3279106608) 114 mg/dL 70-110 H CREATININE (test code = 5359891332) 0.68 mg/dL 0.50-1.04 TOTAL BILI (test code = 8679151183) 0.5 mg/dL 0.1-1.1 CALCIUM (test code = 8584846554) 9.1 mg/dL 8.6-10.6 T PROTEIN (test code = 5787575707) 7.3 g/dL 6.3-8.2 ALBUMIN (test code = 1705585473) 4.4 g/dL 3.5-5.0 ALK PHOS (test code = 2925344693) 243 U/L 34-122 H ALTv (test code = 1742-6) 24 U/L 5-35 AST(SGOT) (test code = 2258686025) 30 U/L 13-40 eGFR (test code = 0688884785) mL/min/1.73m2 LYNDSAY (test code = LYNDSAY) Association [...] imaging tests). Lab Interpretation (test code = 57996-7) Abnormal [facility] StephenvilleLIPASE2022-05-07 20:55:22* Test Item Value Reference Range Interpretation Comme [facility] LIPASE (test code = 8651464926) 96 U/L 0-220 Lab Interpretation (test cod e = 90672-1) Normal [facility] StephenvillePOCT [id number] 20:46:00* Test Item Value Reference Range Interpretation Comme [facility] POCT PREG (test code = 1605) negative On board controls acceptable with C Line (test code = 3574) present POCT PREG LOT # (test code = 3575) [id number] POCT PREG TEST DATE ( test code = 3576) 04/18/2023 Lab Interpretation (test cod e = 28971-6) Normal [facility] WITH [id number] 20:40:38* Test Item Value Reference Range Interpretation [...] 31.8 g/dL 31.6-35.1 RDW-SD (test code = 60032-1) 53.7 fL 39.0-49.9 H RDW-CV (test code = 788-0) 17.2 % 12.0-15.5 H PLT (test code = 777-3) See_Comment H [Automated messa ge] The system which generated this result transmitted reference range: 166 - 358 10*3/?L. The reference range was not used to interpret this result as normal/abnormal. MPV (test code = 02731-4) 8.5 fL 9.5-12.9 L NRBC/100 WBC (test code = 3453953334) See_Comment [Automated Definiens ssage] The system which generated this result transmitted reference range: 0.0 - 10.0 /100 WBCs. The reference range was not used to interpret this result as normal/abnormal. NRBC x10^3 (test code = 4277616092) <0.01 See_Comment [Automated messa ge] The system which generated this result transmitted reference range: 10*3/?L. The reference range was not used to interpret this result as normal/abnormal. GRAN MAT (NEUT) % (test code = 770-8) 53.7 % IMM GRAN % (test code = 3066318936) 0.90 % LYMPH % (test code = 736-9) 32.6 % MONO % (test code = 5905-5) 10.1 % EOS % (test code = 713-8) 1.5 % BASO % (test code = 706-2) 1.2 % GRAN MAT x10^3(ANC) (test code = 9812685544) 4.98 10*3/uL 1.88-7.09 IMM GRAN x10^3 (test code = 7357324288) 0.08 10*3/uL 0.00-0.06 H LYMPH x10^3 (test code = 731-0) 3.02 10*3/uL 1.32-3.29 MONO x10^3 (test code = 742-7) 0.94 10*3/uL 0.33-0.92 H EOS x10^3 (test code = 711-2) 0.14 10*3/uL 0.03-0.39 BASO x10^3 (test code = 704-7) 0.11 10*3/uL 0.01-0.07 H Lab Interpretation (test code = 05554-9) Abnormal [facility] StephenvillePOTN GLUCOSE (AUTOMATED)2021-11-23 20:17:33* Test Item Value Reference Range Interpretation Comme nts POCT GLU (test code = 4828062490) 111 mg/dL 70-110 H Notified Provide r Lab Interpretation (test code = 83721-3) Abnormal [facility] TEST, THINPREP, [id number] 00:00:00 * Test Item Value Reference Range Interpretation Comme nts SOURCE: (test code = 8001) Endocervical SLIDES: (test code = 8011) 1 LMP: (test code = 8021) 06/03/2021 SPECIMEN ADEQUACY: (test code = 74170) (NOTE) INTERPRETATION: (test code = 74406) ASCUS/EPITH. ABNORMALITY; SEE BELOW BRIDGES AND BUILDINGS SUPERVISOR: (test code = 8101) CHANA Thacker(ASCP)IAC PATHOLOGIST INTERPRETATION BY: (test code = 8122) Nahid Russell M.D. LOCATION: (test code = 88432) (NOTE) CPT: (test code = 8140) (NOTE) PAP TEST, THINPREP, [id number] 00:00:00* Test Item Value Reference Range Interpretation Comme [facility] SOURCE: (test code = 8001) Endocervical SLIDES: (test code = 8011) 1 LMP: (test code = 8021) 06/03/2021 SPECIMEN ADEQUACY: (test code = 71674) (NOTE) INTERPRETATION: (test code = 84037) ASCUS/EPITH. ABNORMALITY; SEE BELOW BRIDGES AND BUILDINGS SUPERVISOR: (test code = 8101) CHANA Thacker(ASCP)IAC PATHOLOGIST INTERPRETATION BY: (test code = 8122) Nahid Russell M.D. LOCATION: (test code = 52050) (NOTE) CPT: (test code = 8140) (NOTE) HPV HIGH RISK WITH GENOTYPE, [id number] 00:00:00* Test Item Value Reference Range Interpretation Comme [facility] HPV HIGH RISK INTERP (test c ode = 79334) POSITIVE HPV 16 (test code = 64053) POSITIVE HPV 18 (test code = 42882) NEGATIVE HPV, HR, OTHER GENOTYPES (te st code = 31461) POSITIVE HPV HIGH RISK WITH GENOTYPE, [id number] 00:00:00* Test Item Value Reference Range Interpretation Comme [facility] HPV HIGH RISK INTERP (test c ode = 50651) POSITIVE HPV 16 (test code = 12367) POSITIVE HPV 18 (test code = 96847) NEGATIVE HPV, HR, OTHER GENOTYPES (te st code = 53710) POSITIVE [id number] 03:22:48* Test Item Value Reference Range Interpretation Comme nts APPEARANCE (test code = 9202767054) Hazy Clear A COLOR (test code = 8450200895) Yellow Yellow PH (test code = 6237139048) 4.8-8.0 SP GRAVITY (test code = 2345235820) 1.003-1.030 GLU U QUAL (test code = 1172353653) Normal Normal BLOOD (test code = 1549886020) Negative Negative Interference fro m ascorbic acid may cause false negative results. KETONES (test code = 3813404845) 5 mg/dL Negative A PROTEIN (test code = 2887-8) Negative Negative UROBILIN (test code = 5110296062) 4.0 mg/dL Normal A BILIRUBIN (test code = 2343367002) Negative Negative NITRITE (test code = 4208519238) Negative Negative LEUK GRUPO (test code = 0778193885) Negative Negative RBC/HPF (test code = 0017226683) See_Comment [Automated messa ge] The system which generated this result transmitted reference range: 0 - 3 HPF. The reference range was not used to interpret this result as normal/abnormal. WBC/HPF (test code = 0087575516) <1 See_Comment [Automated messa ge] The system which generated this result transmitted reference range: 0 - 5 HPF. The reference range was not used to interpret this result as normal/abnormal. BACTERIA (test code = 8862180955) Few Negative A SQ EPITH (test code = 0445478045) HPF Lab Interpretation (test code = 01583-5) Abnormal [facility]villeURINALYSIS2021-08-29 03:22:48* Test Item Value Reference Range Interpretation Comme nts APPEARANCE (test code = 8252147157) Hazy Clear A COLOR (test code = 0690128068) Yellow Yellow PH (test code = 1457280880) 4.8-8.0 SP GRAVITY (test code = 7559574083) 1.003-1.030 GLU U QUAL (test code = 0103629230) Normal Normal BLOOD (test code = 5962265745) Negative Negative KETONES (test code = 1962163388) 5 mg/dL Negative A PROTEIN (test code = 2887-8) Negative Negative UROBILIN (test code = 4737444326) 4.0 mg/dL Normal A BILIRUBIN (test code = 2571572094) Negative Negative NITRITE (test code = 5113331501) Negative Negative LEUK GRUPO (test code = 8466796435) Negative Negative RBC/HPF (test code = 3450757691) See_Comment [Automated messa ge] The system which generated this result transmitted reference range: 0 - 3 HPF. The reference range was not used to interpret this result as normal/abnormal. WBC/HPF (test code = 3163967173) <1 See_Comment [Automated messa ge] The system which generated this result transmitted reference range: 0 - 5 HPF. The reference range was not used to interpret this result as normal/abnormal. BACTERIA (test code = 6168026073) Few Negative A SQ EPITH (test code = 4435891187) HPF Lab Interpretation (test code = 92477-6) Abnormal [facility] [id number] 02:45:00* Test Item Value Reference Range Interpretation Comments TROPONIN I (test code = 1308299236) 0.002 ng/mL See_Comment [Automated message] The system [...] of biotin. Lab Interpretation (test code = 30401-7) Normal [facility] [id number] 02:45:00* Test Item Value Reference Range Interpretation Comme nts TROPONIN I (test code = 5352249096) 0.002 ng/mL See_Comment [Automated PiAutoa ge] The system which generated this result transmitted reference range: <=0.034. The reference range was not used to interpret this result as normal/abnormal. LYNDSAY (test code = LYNDSAY) Lab Interpretation (test code = 73320-8) Normal [facility]villeN-TERMINAL [id number] 02:41:57* Test Item Value Reference Range Interpretation Comme nts NT-proBNP (test code = 2291189790) 169 pg/mL See_Comment H [Automated message] The system which generated this result transmitted reference range: <=125. The reference range was not used to interpret this result as normal/abnormal. LYNDSAY (test code = LYNDSAY) Biotin has been reported to cause a negative bias, interpret results relative to patient's use of biotin. Lab Interpretation (test code = 84766-8) [facility]normal [facility] [id number] 02:41:57* Test Item Value Reference Range Interpretation Comme nts NT-proBNP (test code = 3519618208) 169 pg/mL See_Comment H [Automated messa ge] The system which generated this result transmitted reference range: <=125. The reference range was not used to interpret this result as normal/abnormal. LYNDSAY (test code = LYNDSAY) Lab Interpretation (test code = 46726-5) [facility]normal [facility] METABOLIC PANEL (20726)2021-03-17 02:09:13* Test Item Value Reference Range Interpretation Comme nts NA (test code = 8199927113) 137 mmol/L 135-145 K (test code = 4919680868) 4.2 mmol/L 3.5-5.0 CL (test code = 6839268058) 102 mmol/L 98-108 CO2 TOTAL (test code = 1496802961) 25 mmol/L 23-31 AGAP (test code = 7455001638) 2-16 BUN (test code = 8540406642) 18 mg/dL 7-23 GLUCOSE (test code = 1565327972) 144 mg/dL 70-110 H CREATININE (test code = 1194772319) 0.77 mg/dL 0.50-1.04 TOTAL BILI (test code = 2539264166) 0.4 mg/dL 0.1-1.1 CALCIUM (test code = 5207720097) 8.9 mg/dL 8.6-10.6 T PROTEIN (test code = 0085920804) 6.8 g/dL 6.3-8.2 ALBUMIN (test code = 0821992610) 3.9 g/dL 3.5-5.0 ALK PHOS (test code = 6804306058) 84 U/L 34-122 ALTv (test code = 1742-6) 13 U/L 5-35 AST(SGOT) (test code = 4507787279) 17 U/L 13-40 eGFR (test code = 8385469000) mL/min/1.73m2 LYNDSAY (test code = LYNDSAY) Association [...] imaging tests). Lab Interpretation (test code = 41895-3) Abnormal [facility]. METABOLIC PANEL (77655)2021-03-17 02:09:13* Test Item Value Reference Range Interpretation Comme nts NA (test code = 8156958116) 137 mmol/L 135-145 K (test code = 2821000218) 4.2 mmol/L 3.5-5.0 CL (test code = 4273291954) 102 mmol/L 98-108 CO2 TOTAL (test code = 6390701015) 25 mmol/L 23-31 AGAP (test code = 9416709824) 2-16 BUN (test code = 1078638023) 18 mg/dL 7-23 GLUCOSE (test code = 3344937645) 144 mg/dL 70-110 H CREATININE (test code = 2742550610) 0.77 mg/dL 0.50-1.04 TOTAL BILI (test code = 0417322690) 0.4 mg/dL 0.1-1.1 CALCIUM (test code = 9799975222) 8.9 mg/dL 8.6-10.6 T PROTEIN (test code = 0282872288) 6.8 g/dL 6.3-8.2 ALBUMIN (test code = 1995784899) 3.9 g/dL 3.5-5.0 ALK PHOS (test code = 1947435592) 84 U/L 34-122 ALTv (test code = 1742-6) 13 U/L 5-35 AST(SGOT) (test code = 3870114334) 17 U/L 13-40 eGFR (test code = 2041463625) mL/min/1.73m2 LYNDSAY (test code = LYNDSAY) Lab Interpretation (test cod e = 50863-8) Abnormal [facility] WITH [id number] 01:56:33* Test Item Value Reference Range Interpretation [...] g/dL 31.6-35.1 L RDW-SD (test code = 17846-4) 55.5 fL 39.0-49.9 H RDW-CV (test code = 788-0) 18.9 % 12.0-15.5 H PLT (test code = 777-3) See_Comment H [Automated messa ge] The system which generated this result transmitted reference range: 166 - 358 10*3/?L. The reference range was not used to interpret this result as normal/abnormal. MPV (test code = 91489-2) 8.2 fL 9.5-12.9 L NRBC/100 WBC (test code = 1485296459) See_Comment [Automated me ssage] The system which generated this result transmitted reference range: 0.0 - 10.0 /100 WBCs. The reference range was not used to interpret this result as normal/abnormal. NRBC x10^3 (test code = 3135629621) <0.01 See_Comment [Automated messa ge] The system which generated this result transmitted reference range: 10*3/?L. The reference range was not used to interpret this result as normal/abnormal. GRAN MAT (NEUT) % (test code = 770-8) 61.7 % IMM GRAN % (test code = 2263522419) 0.80 % LYMPH % (test code = 736-9) 28.5 % MONO % (test code = 5905-5) 6.3 % EOS % (test code = 713-8) 1.8 % BASO % (test code = 706-2) 0.9 % GRAN MAT x10^3(ANC) (test code = 8872343625) 7.31 10*3/uL 1.88-7.09 H IMM GRAN x10^3 (test code = 9328580767) 0.09 10*3/uL 0.00-0.06 H LYMPH x10^3 (test code = 731-0) 3.38 10*3/uL 1.32-3.29 H MONO x10^3 (test code = 742-7) 0.75 10*3/uL 0.33-0.92 EOS x10^3 (test code = 711-2) 0.21 10*3/uL 0.03-0.39 BASO x10^3 (test code = 704-7) 0.11 10*3/uL 0.01-0.07 H Lab Interpretation (test code = 04306-7) Abnormal [facility] WITH [id number] 01:56:33* Test Item Value Reference Range Interpretation Comme nts WBC (test code = 6690-2) See_Comment H [Automated messa ge] The system which generated this result transmitted reference range: 4.30 - 11.10 10*3/?L. The reference range was not used to interpret this result as normal/abnormal. RBC (test code = 789-8) See_Comment [Automated PiAutoa ge] The system which generated this result [...] g/dL 31.6-35.1 L RDW-SD (test code = 17924-1) 55.5 fL 39.0-49.9 H RDW-CV (test code = 788-0) 18.9 % 12.0-15.5 H PLT (test code = 777-3) See_Comment H [Automated PiAutoa ge] The system which generated this result transmitted reference range: 166 - 358 10*3/?L. The reference range was not used to interpret this result as normal/abnormal. MPV (test code = 07574-0) 8.2 fL 9.5-12.9 L NRBC/100 WBC (test code = 1502368094) See_Comment [Automated Definiens ssage] The system which generated this result transmitted reference range: 0.0 - 10.0 /100 WBCs. The reference range was not used to interpret this result as normal/abnormal. NRBC x10^3 (test code = 7368817483) <0.01 See_Comment [Automated PiAutoa ge] The system which generated this result transmitted reference range: 10*3/?L. The reference range was not used to interpret this result as normal/abnormal. GRAN MAT (NEUT) % (test code = 770-8) 61.7 % IMM GRAN % (test code = 1507073783) 0.80 % LYMPH % (test code = 736-9) 28.5 % MONO % (test code = 5905-5) 6.3 % EOS % (test code = 713-8) 1.8 % BASO % (test code = 706-2) 0.9 % GRAN MAT x10^3(ANC) (test code = 4290425428) 7.31 10*3/uL 1.88-7.09 H IMM GRAN x10^3 (test code = 6018009908) 0.09 10*3/uL 0.00-0.06 H LYMPH x10^3 (test code = 731-0) 3.38 10*3/uL 1.32-3.29 H MONO x10^3 (test code = 742-7) 0.75 10*3/uL 0.33-0.92 EOS x10^3 (test code = 711-2) 0.21 10*3/uL 0.03-0.39 BASO x10^3 (test code = 704-7) 0.11 10*3/uL 0.01-0.07 H Lab Interpretation (test code = 99688-3) [facility]normal [facility]ID NOW RAPID TESTING)2021-03-17 01:38:12* Test Item Value Reference Range Interpretation Comme nts SARS-CoV-2 Rapid ID NOW (test code = 19702-4) Not Detected Not Detected LYNDSAY (test code = LYNDSAY) ID NOW COVID-19 As say is an isothermal nucleic acid amplification test intended for the qualitative detection of nucleic acid from SARS-CoV-2 viral RNA in nasopharyngeal (SCIENTIFIC PUBLICATIONS EDITOR) specimens. It is used under Emergency [...] clinically indicated. Lab Interpretation (test code = 70093-2) Normal [facility] (ID NOW RAPID TESTING)2021-03-17 01:38:12* Test Item Value Reference Range Interpretation Comme nts SARS-CoV-2 Rapid ID NOW (raisa t code = 37773-1) Not Detected Not Detected LYNDSAY (test code = LYNDSAY) Lab Interpretation (test cod e = 45773-3) Normal [facility] (ID NOW RAPID TESTING)2021-02-19 17:42:45* Test Item Value Reference Range Interpretation Comme nts SARS-CoV-2 Rapid ID NOW (test code = 63521-4) Not Detected Not Detected LYNDSAY (test code = LYNDSAY) ID NOW COVID-19 As say is an isothermal nucleic acid amplification test intended for the qualitative detection of nucleic acid from SARS-CoV-2 viral RNA in nasopharyngeal (SCIENTIFIC PUBLICATIONS EDITOR) specimens. It is used under Emergency [...] clinically indicated. Lab Interpretation (test code = 69214-5) Normal [facility]CT ABDOMEN PELVIS W [id number] 17:24:55Thickening of the gastric antrum and duodenal [...] Electronicallysigned by James Freeman at 02/19/2021 12:24 PMUnHarris [facility] HospitalUrinalysis2021-08-03 17:03:40* Test Item Value Reference Range Interpretation Comme nts APPEARANCE (test code = 7384588676) Hazy Clear A COLOR (test code = 7580916353) Mabel Yellow A PH (test code = 1500575487) 4.8-8.0 SP GRAVITY (test code = 1024358875) 1.003-1.030 H GLU U QUAL (test code = 9931938175) Normal Normal BLOOD (test code = 5593831995) Negative Negative KETONES (test code = 4656575876) 5 mg/dL Negative A PROTEIN (test code = 2887-8) 30 mg/dL Negative A UROBILIN (test code = 9318607024) 4.0 mg/dL Normal A BILIRUBIN (test code = 6003138480) 4 mg/dL Negative A NITRITE (test code = 3934450675) Negative Negative LEUK GRUPO (test code = 3560118507) Negative Negative RBC/HPF (test code = 9648714676) See_Comment H [Automated Gentis] The system which generated this result transmitted reference range: 0 - 3 HPF. The reference range was not used to interpret this result as normal/abnormal. WBC/HPF (test code = 6333879583) See_Comment H [Automated [employer]] The system which generated this result transmitted reference range: 0 - 5 HPF. The reference range was not used to interpret this result as normal/abnormal. BACTERIA (test code = 8473619119) Few Negative A MUCOUS (test code = 2213854356) Moderate Negative LPF A SQ EPITH (test code = 1333204144) HPF CA OXALATE (test code = 3805584177) See_Comment H [Automated messa ge] The system which generated this result transmitted reference range: <=1 HPF. The reference range was not used to interpret this result as normal/abnormal. Ictotest (test code = 0501223986) Negative Lab Interpretation (test code = 01855-0) Abnormal [facility]ville[facility] Metabolic [id number] 16:34:55* Test Item Value Reference Range Interpretation Comme nts NA (test code = 0564869124) 139 mmol/L 135-145 K (test code = 7322123000) 4.3 mmol/L 3.5-5.0 CL (test code = 6028614073) 105 mmol/L 98-108 CO2 TOTAL (test code = 9480521689) 26 mmol/L 23-31 AGAP (test code = 0269262107) 2-16 BUN (test code = 7862556901) 11 mg/dL 7-23 GLUCOSE (test code = 2388718060) 95 mg/dL 70-110 CREATININE (test code = 4021657792) 0.70 mg/dL 0.50-1.04 TOTAL BILI (test code = 1557343210) 0.6 mg/dL 0.1-1.1 CALCIUM (test code = 5169760873) 8.9 mg/dL 8.6-10.6 T PROTEIN (test code = 7687890253) 7.7 g/dL 6.3-8.2 ALBUMIN (test code = 9719511637) 4.1 g/dL 3.5-5.0 ALK PHOS (test code = 4501973493) 79 U/L 34-122 ALTv (test code = 1742-6) 10 U/L 5-35 AST(SGOT) (test code = 1539300838) 22 U/L 13-40 eGFR (test code = 5733120321) mL/min/1.73m2 LYNDSAY (test code = LYNDSAY) Association [...] or abnormalities in imaging tests). [facility]villeLip[facility], [id number] 16:34:14* Test Item Value Reference Range Interpretation Comme nts LIPASE (test code = 8164363799) 45 U/L 0-220 Lab Interpretation (test cod e = 57508-7) Normal [facility]ville[facility] with [id number] 16:21:12* Test Item Value Reference Range Interpretation Comme nts WBC (test code = 6690-2) See_Comment [Automated Gentis] The system which generated this result transmitted reference range: 4.30 - 11.10 10*3/?L. The reference range was not used to interpret this result as normal/abnormal. RBC (test code = 789-8) See_Comment [Automated Gentis] The system which generated this result transmitted [...] g/dL 31.6-35.1 L RDW-SD (test code = 50695-0) 54.4 fL 39.0-49.9 H RDW-CV (test code = 788-0) 18.3 % 12.0-15.5 H PLT (test code = 777-3) See_Comment H [Automated messa ge] The system which generated this result transmitted reference range: 166 - 358 10*3/?L. The reference range was not used to interpret this result as normal/abnormal. MPV (test code = 47455-8) 8.5 fL 9.5-12.9 L NRBC/100 WBC (test code = 4036565864) See_Comment [Automated Definiens ssage] The system which generated this result transmitted reference range: 0.0 - 10.0 /100 WBCs. The reference range was not used to interpret this result as normal/abnormal. NRBC x10^3 (test code = 9800113252) <0.01 See_Comment [Automated messa ge] The system which generated this result transmitted reference range: 10*3/?L. The reference range was not used to interpret this result as normal/abnormal. GRAN MAT (NEUT) % (test code = 770-8) 78.3 % IMM GRAN % (test code = 0046764935) 0.40 % LYMPH % (test code = 736-9) 15.4 % MONO % (test code = 5905-5) 4.8 % EOS % (test code = 713-8) 0.1 % BASO % (test code = 706-2) 1.0 % GRAN MAT x10^3(ANC) (test code = 9065439594) 7.15 10*3/uL 1.88-7.09 H IMM GRAN x10^3 (test code = 5894094983) 0.04 10*3/uL 0.00-0.06 LYMPH x10^3 (test code = 731-0) 1.41 10*3/uL 1.32-3.29 MONO x10^3 (test code = 742-7) 0.44 10*3/uL 0.33-0.92 EOS x10^3 (test code = 711-2) <0.03 0.03-0.39 L BASO x10^3 (test code = 704-7) 0.09 10*3/uL 0.01-0.07 H Lab Interpretation (test code = 26313-9) Abnormal [facility] Consult Notes Date/Time Note Provider Source 2024-08-10 12:16:49 Associated Order(s): IP CONSULT TO SOCIAL WORK Reason For Consult SW consulted for transport home. Pt transferred from [place]. SW spoke with pt at bedside, pt states she is going to her friend's Jew[place] ([phone]) home at [address] [place] [address]. Pt is wheelchair bound and does not have wheelchair here. SW arranged [facility] [place] [facility] 2024-01-10 12:39:30 Associated Order(s): CONSULT CARDIOLOGY [facility] Cardiology Consult PCP: PATIENT DOES NOT HAVE A PCP Date of Service: 01/10/2024 CHIEF COMPLAINT/reason for consult: Chest pain HISTORY OF PRESENT ILLNESS This is a 53 years old female with past medical history of smoking, COPD, hypertension, obesity, nonobstructive coronary artery disease, systolic and diastolic heart failure, left ventricular thrombosis and pulm hypertension. She presented to [facility] emergency room with chest pain. She has [...] (chronic obstructive pulmonary disease) Diverticulitis Epilepsy Hypertension [place] (myocardial infarction) 07/20/2007 Slipped disc Stomach cancer Substance abuse Marijuana daily-for anxiety Past Surgical History: Procedure Laterality Date ANTERIOR CERVICAL FUSION CHOLECYSTECTOMY HAND/FINGER SURGERY UNLISTED Bilateral 3 L hand, 3 R hand METATARSAL OSTEOTOMY Right 08/14/2015 Surgeon: Luis Jones Jr., ESTHER; [place] [facility] [place] Family History Problem Relation Age of [...] pulmonary disease) Obesity Coronary artery disease involving [place] coronary artery of [place] heart without angina pectoris Snores Cigarette smoker [...] be of further assistance. Kylee Montez MD, [facility], [address] Mri Technologist Division of Cardiovascular Medicine [facility] [employer] 2023-12-15 08:28:19 Associated Order(s): CONSULT CARDIOLOGY [facility] Cardiology Consult PCP: PATIENT DOES NOT HAVE A PCP Date of Service: 12/15/2023 CHIEF COMPLAINT/reason for consult: Heart failure HISTORY OF PRESENT ILLNESS This is a 53 years old female with past medical history of smoking, COPD, hypertension, obesity, nonobstructive coronary artery disease, systolic and diastolic heart failure, left ventricular thrombosis and pulm hypertension. She presented to [facility] emergency room with dyspnea, chest pain and [...] (chronic obstructive pulmonary disease) Diverticulitis Epilepsy Hypertension [place] (myocardial infarction) 07/20/2007 Slipped disc Stomach cancer Substance abuse Marijuana daily-for anxiety Past Surgical History: Procedure Laterality Date ANTERIOR CERVICAL FUSION CHOLECYSTECTOMY HAND/FINGER SURGERY UNLISTED Bilateral 3 L hand, 3 R hand METATARSAL OSTEOTOMY Right 08/14/2015 Surgeon: Luis Jones Jr., ESTHER; [place] [facility] [place] Family History Problem Relation Age of [...] pain, unspecified type Coronary artery disease involving [place] coronary artery of [place] heart without angina pectoris Snores Cigarette smoker [...] further assistance. Kylee Montez MD, FACC, [address] Mri Technologist Division of Cardiovascular Medicine [facility] 2023-11-27 14:57:00 Associated Order(s): CONSULT ADULT PHYSICAL THERAPY 11/27/2023 Physical therapy note: Duplicate consult. Sami Teran PT, DPT,CMSR Sami Teran PT [facility] 2023-11-25 10:16:00 Associated Order(s): CONSULT ADULT [...] (chronic obstructive pulmonary disease) Diverticulitis Epilepsy Hypertension [place] (myocardial infarction) 07/20/2007 Slipped disc Stomach cancer Substance abuse Marijuana daily-for anxiety PSH: Past Surgical History: Procedure Laterality Date ANTERIOR CERVICAL FUSION CHOLECYSTECTOMY HAND/FINGER SURGERY UNLISTED Bilateral 3 L hand, 3 R hand METATARSAL OSTEOTOMY Right 08/14/2015 Surgeon: Luis Jones Jr., DPM; Location: [facility] [place] [facility] Location TONSILLECTOMY Prior Living Situation: lives with her [...] -Pain Management: Nursing Notified COMMUNICATION Primary Language: Afghan Able to Verbalize needs: Yes Vision:good; no [...] in Minutes: 30 min Sami Teran,PT, DPT,CMSR T [facility] - Health History and Physical Notes Date/Time Note Provider Source 2024-08-10 06:52:16 NEUROSURGERY History & Physical Date: 08/10/24 Patients Name: Heather Turner Admit Date: 08/10/2024 Admitting Provider: Brooklynn Paige MD : 1970 Service: Neurosurgery Trauma Team Age/Sex: 54 y.o. female CHIEF COMPLAINT: - Chief Complaint: S/P seizure/fall, CT revealed R parafalcine SDH - Consult Time: 6:52 hrs - Evaluation Time: 07:05 hrs HISTORY AND PHYSICAL: Pt is a 54 year old female with a past medical history of HTN, Epilepsy, CAD, HFrEF 15-20% EF who reportedly is noncompliant with Depakote (patient reports muñoz prohibitive), and had a seizure when she was in her wheelchair and fell down striking her head. She presented to a local ED and CT scan revealed right-sided parafalcine SDH, stable on repeat. Patient reportedly had 3 seizures in total and received loading dose of fosphenytoin, ativan, and phenobarbital. She endorse RIOS and some nausea that is similar to after prior seizures. Patient denies dizziness, vomiting, decreased sensation, or new weakness. Patient is not on blood thinners. Pt was transferred to [facility] ED for a higher level of care and treatment recommendations. REVIEW OF SYSTEMS: 14 point review of systems was performed and negative except for those noted in the HPI Seizure, headache. MEDICAL HISTORY: PAST MEDICAL HISTORY: HTN, Epilepsy, CAD, CHF PAST SURGICAL HISTORY: Past Surgical History: Procedure Laterality Date MRI ANGIOGRAM HEAD W AND WO IV CONTRAST 09/05/2023 MRI ANGIOGRAM HEAD W AND WO IV CONTRAST 09/05/2023 - ACDF - C2-C7 PRE-ADMISSION MEDICATIONS: (Not in a hospital admission) ALLERGIES: Allergies Allergen Reactions Keppra [Levetiracetam] SOCIAL HISTORY: - Hand dominance: right - Positive for ETOH abuse, Cocaine abuse FAMILY HISTORY: Family history is non-contributory to current disease process No family history on file. VITAL SIGNS: Vitals: 08/10/24 0520 BP: 131/72 Pulse: 97 Resp: 18 Temp: 36.7 ?C (98.1 ?F) SpO2: 98% PHYSICAL EXAM: Eyes open Fcx4 Alert and oriented x3 Left pupil 3mm and brisk Right pupil 3 mm and brisk EOMI RUE full strength RLE 4/5 strength (uses wheelchair at baseline) LUE full strength LLE 4/5 strength (uses wheelchair at baseline) Intact neurological exam elements: EOMI peripheral visual ryan vision 20/20 bilaterally w/ correction intact facial sensation facial movements symmetric Hearing intact bilaterally palate elevates midline tongue protrudes midline shoulder shrug symmetric LABS: Results from last 7 days Lab Units 08/10/24 0551 WBC 10*3/uL 8.32 HEMOGLOBIN g/dL 12.1 HEMATOCRIT % 37.2 PLATELETS 10*3/uL 421 LYMPHOCYTES % 32.2 MONOCYTES % 11.8* Results from last 7 days Lab Units 08/10/24 0551 SODIUM mEq/L 144 POTASSIUM mEq/L 3.6 CHLORIDE mEq/L 111* CO2 mEq/L 21.1 BUN mg/dL <7* CREATININE mg/dL 0.59 CALCIUM mg/dL 8.1* PROTEIN TOTAL g/dL 7.1 BILIRUBIN TOTAL mg/dL <0.15* ALK PHOS U/L 99 ALT U/L 10 AST U/L 16 GLUCOSE mg/dL 109* No results found for: "PT", "INR", "PTT" Activated Clotting Time (TEG) Rapid Date Value Ref Range Status 08/10/2024 97 86 - 118 sec Final IMAGING: CT BRAIN: Trace right-sided parafalcine SDH, no mass effect, no midline shift. CT C-SPINE: No acute fractures, no hardware complications form fusion of C2-C7. NEURO ASSESSMENT/PLAN: Active Problems: Patient Active Problem List Diagnosis Seizure (HCC) Subdural hemorrhage (HCC) Assessment: Pt is a 54 year old female with a past medical history of HTN, Epilepsy, CAD, HFrEF 15-20% EF who reportedly is noncompliant with Depakote (patient reports muñoz prohibitive), and had a seizure when she was in her wheelchair and fell down striking her head. She presented to a local ED and CT scan revealed right-sided parafalcine SDH, stable on repeat. Patient reportedly had 3 seizures in total and received loading dose of fosphenytoin, ativan, and phenobarbital. She endorse RIOS and some nausea that is similar to after prior seizures. Patient denies dizziness, vomiting, decreased sensation, or new weakness. Patient is not on blood thinners. Pt was transferred to [facility] ED for a higher level of care and treatment recommendations. Impression: - Right-sided trace parafalcine SDH - Seizure with know epilepsy and med non-compliance -Prior C2-7 ACDF Plan: -No acute neurosurgical intervention needed -Repeat CT brain grossly stable, pending final read -CT c-spine prior C2-7 ACDF observed, no acute abnormality -Keppra 1g load, then 500mg q12h for 7 day for sz ppx -rTEG wnl -Trauma work-up per ED -Recommend Neurology consult for multiple seizures, while etiology of non-compliance perhaps less expensive AEDs possible, patient at high risk of further seizures -If Final Read of repeat CT head stble, then dispo per ED. Please have the patient follow up in Neurosurgery trauma clinic 2 weeks after discharge with repeat CT brain without contrast. Please call [phone] to schedule an appointment. Importance of follow up and red flags symptoms discussed with patient. She was counseled on not take ASA or blood thinners. - Please call [phone] with NSGY questions or concerns Prakash Eckert MD [facility] Neurosurgery Cosigned by Gus Jamison MD at 08/10/2024 8:06 AM SILVERER ERER ERER Associated attestation - Gus Jamison MD - 08/10/2024 8:06 AM SILVERER I have reviewed the case and imaging. The CT shows minimal, unchanged hemorrhage that does not require intervention. We will defer further management to the ER and neurology. Please call [phone] with questions. Neurosurgery Physician Jeffry Bolaños 2024-01-09 22:04:15 [facility] Hospitalist Admission H&P Date of Service: 01/09/2024 CHIEF COMPLAINT: Patient with complaints of chest pain and a history of cardiomyopathy with left ventricular thrombus HISTORY OF PRESENT ILLNESS Heather Turner is a 53 year old female who presents with chest discomfort. Patient had extensive cardiac workup done recently at [facility]. At that time, patient was noted to [...] a while. Patient recently started coming to [facility] as she had been going to [facility]. At this time, she will be [...] (chronic obstructive pulmonary disease) Diverticulitis Epilepsy Hypertension [place] (myocardial infarction) 07/20/2007 Slipped disc Stomach cancer Substance abuse Marijuana daily-for anxiety Pseudoseizures PAST SURGICAL HISTORY Past Surgical History: Procedure Laterality Date ANTERIOR CERVICAL FUSION CHOLECYSTECTOMY HAND/FINGER SURGERY UNLISTED Bilateral 3 L hand, 3 R hand METATARSAL OSTEOTOMY Right 08/14/2015 Surgeon: Luis Jones Jr., ESTHER; Location: [facility] OR Location TONSILLECTOMY ALLERGIES Allergies Allergen Reactions [...] edema versus atypical pneumonia. RL: 4131 AFC: [id number] End of report CHEST 1 VW Narrative [...] given high risk of morbidity and mortality. [place] SENIOR OFFICE SUPPORT ASSISTANT SOSA was verified during stay Darrick Altamirano MD [facility] 2023-12-14 22:42:40 MEDICINE [facility] ADMIT H&P Date of Service: 12/14/2023 CHIEF COMPLAINT: shortness of breath Subjective History of Present Illness 53 year old female with a PMH significant for HFrEF (15-20% on 11/22/23) w/ LV thrombus, RLE DVT, RLL segmental PE, HTN, smoker, COPD, chronic low back pain, depression presenting from [facility] ED due to chest heaviness [...] (chronic obstructive pulmonary disease) Diverticulitis Epilepsy Hypertension [place] (myocardial infarction) 07/20/2007 Slipped disc Stomach cancer Substance abuse Marijuana daily-for anxiety Past Surgical History: Procedure Laterality Date ANTERIOR CERVICAL FUSION CHOLECYSTECTOMY HAND/FINGER SURGERY UNLISTED Bilateral 3 L hand, 3 R hand METATARSAL OSTEOTOMY Right 08/14/2015 Surgeon: Luis Jones Jr., ESTHER; [place] [facility] [place] Family History Problem Relation Age of [...] BP: 116/82 115/78 Pulse: 80 90 Resp: Temp: 36.9 ?C (98.4 ?F) 36.2 ?C [...] On Eliquis Code Status: Full Code T [facility] EMERGENCY PHYSICIAN STAFF [facility] 2023-11-22 13:30:57 CCU Team Admit H&P [...] lumbar spinal stenosis, and depression presenting from [facility] ED due to SOB. Patient [...] (chronic obstructive pulmonary disease) Diverticulitis Epilepsy Hypertension [place] (myocardial infarction) 07/20/2007 Slipped disc Stomach cancer Substance abuse Marijuana daily-for anxiety Prior to Admission medications Medication Sig Start Date End Date Taking? Authorizing Provider metoprolol succinate XL 25 mg 24 hr tablet Take 1 tablet by mouth every morning. 05/11/23 Yes Doctor Unassigned, [place] spironolactone 25 mg tablet Take 1 tablet by mouth in the morning and 1 tablet in the evening. 09/30/23 Yes Doctor Unassigned, [place] DULoxetine 30 mg capsule Take 1 capsule by mouth in the morning. Doctor Unassigned, [place] furosemide 20 mg tablet Take 1 tablet by mouth every morning and evening. Doctor Unassigned, [place] Lacosamide (VIMPAT) 100 mg tablet Take 1 [...] or Shortness of Breath. 03/15/21 Lydia Desouza, DANIELA dicyclomine 20 mg tablet Take 1 tablet by mouth 4 (four) times daily as needed for Abdominal pain. 02/19/21 Estefania Monroy PAC proMETHazine 25 mg tablet Take 1 tablet by mouth every 6 (six) hours as needed for Nausea and Vomiting (N/V). 02/19/21 Estefania Monroy PAC ondansetron 4 mg tablet Take 4 mg by mouth every 8 (eight) hours as needed. Doctor Unassigned, [place] pantoprazole 40 mg EC tablet Take 40 mg by mouth daily. Doctor Unassigned, [place] amLODIPine (NORVASC) 10 mg tablet Take 1 Tab by mouth daily. 09/20/15 Kylee Montez MD carvedilol (COREG) 6.25 mg tablet Take 1 Tab by mouth 2 (two) times daily with meals. 09/20/15 Kylee Montez MD lisinopril (PRINIVIL,ZESTRIL) 40 mg tablet Take 1 Tab by mouth daily. 09/20/15 Kylee Montez MD loratadine (CLARITIN LIQUI-GEL) 10 mg capsule Take by mouth daily. Doctor Unassigned, [place] MULTIVITAMIN ORAL Take 1 Tab by mouth daily. Doctor Unassigned, [place] omega-3 fatty acids-vitamin E (FISH OIL) 1,000 mg capsule Take 1 g by mouth daily. Doctor Unassigned, [place] Allergies Allergen Reactions Green Tea Other - See comments Seizures Diclofenac Hypertension Keppra [Levetiracetam] Other - See comments Makes seizures worse Past surgical history: Past Surgical History: Procedure Laterality Date ANTERIOR CERVICAL FUSION CHOLECYSTECTOMY HAND/FINGER SURGERY UNLISTED Bilateral 3 L hand, 3 R hand METATARSAL OSTEOTOMY Right 08/14/2015 Surgeon: Luis Jones Jr., ESTHER; Location: [facility] OR [facility] [...] Friends and Family: Not on file Attends [employer]: Not on file Active Member of [...] Otherwise, Sonographically unremarkable right upper quadrant. RL: [id number] HS:Y CHEST PULMONARY ANGIOGRAM Result Date: 11/22/2023 1. Right lung lower lobe segmental pulmonary embolism. The patient is already on anticoagulation for lower extremity DVT. 2. Mild cardiomegaly. 3. Left adrenal nodule consider follow-up with elective contrast CT. ___ XR SHOULDER 2+ VW RIGHT Result Date: 11/22/2023 Impression: 1. No acute osseous abnormality. 2. Chronic findings as detailed. RL: [id number] End of Report LOWER EXTREMITY VEIN WITH COMPRESSION BILATERAL (ONLY FOR RULE OUT DVT) Result Date: 11/22/2023 Impression: Nonocclusive thrombus in the right common femoral/greater saphenous vein. Critical Result: DVT Findings were discussed with nurse Merlyn Osullivan, who acknowledged receipt and understanding of the findings, at 11/22/2023 3:47 AM. RL: 5 End of Report CHEST 1 VW Result Date: 11/21/2023 Impression: No consolidation or pleural effusion. No pneumothorax. RL: [id number] End of Report SSMENT/PLAN: Heather Turner is a 53 year old female admitted to the hospital with: Decompensated acute on chronic HFrEF 15-20% EF Cardiogenic shock NSTEMI Congestive hepatopathy Lactic acidosis LV thrombus HTN Iron deficiency anemia Patient in cardiogenic shock with lactic acidosis and congestive hepatopathy on milrinone and lasix. New LV thrombus identified on TTE, currently on heparin gtt. Negative [place] Criteria. Blood cultures NGTD. Received cefepime 1 [...] ordering referrals and/or communicating with other health home health caregiver (not separately reported), documenting clinical information in the electronic or other health record, and care coordination (not separately reported). 53 yo F with cardiogenic shock and PE Acute decompensated HFrEF NSTEMI Pulmonary embolism Polysubstance use LV thrombus COPD Elevated lactate- started on milrinone on 11/21 Continue milrinone Continue anticoagulation RHC/LHC today for BiV failure Cr Altamirano MD [employer]uttle [employer] [facility] Cardiology 11/23/23 [facility] 2023-11-22 02:28:50 MEDICINE [place] H&P PCP: PATIENT DOES NOT HAVE A PCP Date of Service: 11/21/2023 CHIEF COMPLAINT: SOB History of Present Illness Heather Turner is a 53 year old female with a PMH significant for HFrEF (~35% 05/2023), HTN, Smoker, COPD, chronic low back pain, depression presenting from [facility] ED due to SOB. Pt states her home pulse ox was reading 86% and was having trouble catching her breath. Associated sx include PETERSON, orthopnea, CP that is substernal, pressure-like, and non radiating. She says the SOB started earlier today with productive cough. Denies fevers or chills. No recent sick contacts. States she was treated for pneumonia at [place] 2 weeks ago with levaquin and prednisone [...] (chronic obstructive pulmonary disease) Diverticulitis Epilepsy Hypertension [place] (myocardial infarction) 07/20/2007 Slipped disc Stomach cancer Substance abuse Marijuana daily-for anxiety Past Surgical History: Procedure Laterality Date ANTERIOR CERVICAL FUSION CHOLECYSTECTOMY HAND/FINGER SURGERY UNLISTED Bilateral 3 L hand, 3 R hand METATARSAL OSTEOTOMY Right 08/14/2015 Surgeon: Luis Jones Jr., ESTHER; Location: [facility] OR [facility] [...] Depakote - c/w flomax Pain UncontrolledTylenol and [place] Prophylaxis: DVT- heparin Stress Ulcer: pantoprazole Code Status: addressed: Full Code Cris Mcnally, DO Internal Medicine [place] Team Associated attestation [...] results to the patient. Ivis Mcdermott MD [employer] Department of Internal Medicine Division of Cardiovascular Disease [facility] Procedure Notes Date/Time [...] mg Access site: right radial artery, RIJ [place] 4.0 5fr 8 Fr IJ sheath [place] Rosalba Closure Method: TR Band, manual pressure [...] was present for the entire procedure. KEVIN [facility] Associated attestation - Cris Molina MD - [...] failure. Cris Molina MD assistant professor of art. Division of cardiovascular medicine [facility] IM-CARDIOVASCULAR DISEASE [facility]
[2024-08-29 01:41] LABS: Absolute Basophils 0.1 K/uL (0-0.5); Absolute Lymphocytes (CBC) 2.7 K/uL (0.7-4.9); Absolute Monocytes 0.8 K/uL (0.1-1.3); Absolute Neutrophil 5.5 K/uL (1.8-8.0); Basophils % 1.1 % (0-1.3); Eosinophils % 0.5 % (0-4.4); Hematocrit 40.5 % (36.0-45.0); Hemoglobin 13.6 g/dL (12.0-15.0); Lymphocytes % 29.4 % (15.3-44.8); MCH 28.9 pg (27.0-35.0); MCHC 33.7 g/dL (32.0-36.0); MCV 85.7 fL (80-100); MPV 6.5 fL (7.6-11.3); Monocytes % 8.8 % (3.3-12.3); Neutrophils % 60.2 % (41.7-73.7); Platelets 430 thou/uL (152-406); RBC Red Blood Cell Count 4.72 M/uL (3.86-4.86); Red Cell Distribution Width 17.8 % (12.1-15.2)
[2024-08-29 01:45] LABS: PT Prothrombin Time 11.3 SECONDS (9.4-12.5); PTT, Activated Partial Thromb 33.3 SECONDS (24.3-36.9); Protime INR 1.08
[2024-08-29 01:52] LABS: ALT/SGPT 30 U/L (13-56); AST/SGOT 36 U/L (15-37); Albumin 3.5 g/dL (3.4-5.0); Albumin/Globulin Ratio 0.8 (1.1-1.8); Alkaline Phosphatase 123 U/L (45-117); Anion Gap 14.9 mEq/L (5.0-15.0); BUN Blood Urea Nitrogen 8 mg/dL (7-18); Bicarbonate 19 mEq/L (21-32); Bilirubin Direct < 0.2 mg/dL (0-0.2); Bilirubin Indirect, Calculated 0.1 mg/dL (0.2-0.8); Bilirubin Total 0.3 mg/dL (0.2-1.0); Globulin 4.5 g/dL (2.3-3.5); Glomerular Filtration Rate 104 ml/min (=/>90); Glucose Level 101 mg/dL (74-106); Potassium 3.9 mEq/L (3.5-5.1); Sodium Level 137 mEq/L (136-145); Valproic Acid (Depakene) Level < 3.0 mcg/mL (50.0-100.0)
[2024-08-29] MEDS ORDERED: ONDANSETRON 4 MG/2 ML VIAL ONE (01:52)
[2024-08-29] MEDS ORDERED: THIAMINE 200 MG/2 ML INJ ONE (01:52)
[2024-08-29] MEDS ORDERED: MULTIVITAMINS 10 ML VIAL (INJ) IV ONE (01:53)
[2024-08-29] MEDS ORDERED: FOLIC ACID 5 MG/ML VIAL ONE (01:54)
--- NOTE | 2024-08-29 02:03 | ER ---
Nurse's Notes [facility] Name: Heather Coon Age: 54 yrs Sex: Female : 1970 Arrival Date: 08/29/2024 Time: 00:39 Bed 4 Private MD: Diagnosis: Alcohol abuse with intoxication;Epileptic seizures related to external causes, not intractable Presentation: 08/29 01:06 Chief complaint: Patient states: PT BROUGHT TO ER DUE TO SEIZURES. PT HAS BEEN DRINKING br2 ETOH. PT WAS GIVEN VERSED 5MG X2 PER NASAL BY EMS PATIENT SERVICES TECHNICIAN. Coronavirus screen: Client denies travel out of the [place] in the last 14 days. Ebola Screen: Patient denies exposure to infectious person. Initial Sepsis Screen: Does the patient meet any 2 criteria? No. Patient's initial sepsis screen is negative. Does the patient have a suspected source of infection? No. Patient's initial sepsis screen is negative. Risk Assessment: Do you want to hurt yourself or someone else? Patient reports no desire to harm self or others. Onset of symptoms was August 29, 2024. 01:06 Method Of Arrival: EMS: [facility] br2 01:06 Acuity: ANDER 3 br2 Triage Assessment: 00:30 General: Appears obese, unkempt. General: Behavior is crying. Pain: Unable to use pain br2 scale. INTOXICATED. - Family history:: not pertinent. Screenin:45 [facility] ED Fall Risk Assessment (Adult) History of falling in the last 3 months, br2 including since admission Yes- fall prone (multiple falls) (3 pts) Confusion or Disorientation No (0 pts) Intoxicated or Sedated Yes (3 pts) Impaired Gait Yes (1 pt) Mobility Assist Device Used Yes (1 pt) Altered Elimination No (0 pt) Score/Fall Risk Level 3 or more points = High Risk Maintained a safe environment. Abuse screen: Denies threats or abuse. Denies injuries from another. Nutritional screening: No deficits noted. Tuberculosis screening: No symptoms or risk factors identified. Assessment: 00:39 Reassessment: Patient and/or family updated on plan of care and expected duration. Pain br2 level reassessed. Patient is alert, oriented x 3, equal unlabored respirations, skin warm/dry/pink. General: Appears obese, unkempt, Behavior is crying, restless, CRYING AND ETOH ON BOARD. 00:39 Neuro: Level of Consciousness is awake, alert, Oriented to person. Neuro: Seizure br2 activity PT HAVING "SEIZURE LIKE ACTIVITY" THAT LAST APPROX 15 SECOND AND THEN SPEAK TO YOU. Respiratory: Airway is patent Respiratory effort is even, Respiratory pattern is regular, symmetrical. GI: Pt is actively vomiting undigested food. : No signs and/or symptoms were reported regarding the genitourinary system. 01:30 Reassessment: PT HOLLERING AND CRYING, THROWING UP ON THE FLOOR, TAKING OFF B/P CUFF br2 AND PULSE OX.... 02:15 Reassessment: PT CONTINUES TO THROW UP ON THE FLOOR AND CRYING. PT STATES TODAY IS 4 br2 YEARS SINCE HER .... 02:45 Reassessment: Patient and/or family updated on plan of care and expected duration. Pain br2 level reassessed. Patient is alert, oriented x 3, equal unlabored respirations, skin warm/dry/pink. PT OUT OF BED TO BED SIDE COMMODE WITH ASSIST. 03:30 Reassessment: PT UPSET THAT SHE IS GETTING DISCHARGED. PT STATES NO ONE CARES, br2 SCREAMING AND HOLLERING. PT WANTING A CT HEAD BECAUSE SHE STATES SHE HIT HER HEAD DURING SEIZURE. DR MACIAS NOTIFIED AND CT ORDERED. 04:00 Reassessment: Reassessment: PT SCREAMING SAYING TO FORGET ABOUT THE CT THAT SHE WANTS br2 TO LEAVE SHE IS PULLING OFF B/P CUFF. PT BEGINS TO HOLLAR AT ME STATING NO ONE CARES SHE JUST WANTS TO LEAVE. Vital Signs: 01:06 BP 149 / 91; Pulse 127; Resp 16 S; Temp 97.1(TE); Pulse Ox 98% on R/A; Weight 81.65 kg; br2 Height 5 ft. 3 in. ; Pain 10/10; 01:30 BP 140 / 84; Pulse 110; Resp 17 S; Pulse Ox 98% on R/A; br2 01:06 Body Mass Index 31.89 (81.65 kg, 160.02 cm) br2 01:06 Pain Scale: Adult br2 ED Course: 00:41 Patient arrived in ED. [email or web address] 00:42 Derrick Macias MD is Attending Physician. fabrice 00:45 Fall risk band placed. Bed in low position. Call light in reach. Side rails up X 1. br2 Seizure precautions initiated. Provided Education on: PLAN OF CARE. 00:45 Arm band placed on right wrist. br2 01:06 Anjali Daily RN is Primary Nurse. br2 01:06 Maintain EMS IV. Dressing intact. Good blood return noted. Site clean \\T\\ dry. Gauge \\T\\ br 2 site: 20 LEFT HAND . 01:09 Triage completed. br2 01:15 Inserted saline lock: 20 gauge in right hand, using aseptic technique. Blood collected. br2 Flushed with 10 mL NS. 01:42 Acetaminophen Sent. br2 01:42 Basic Metabolic Panel Sent. br2 01:42 CBC with Diff Sent. br2 01:42 ETOH Level Sent. br2 01:42 Hepatic Function Sent. br2 01:42 PT-INR Sent. br2 01:42 Ptt, Activated Sent. br2 01:42 Salicylate Sent. br2 04:20 No provider procedures requiring assistance completed. br2 04:20 IV discontinued, intact, bleeding controlled, No redness/swelling at site. Pressure br2 dressing applied. Administered Medications: 02:15 Drug: Ativan (LORazepam) 1 mg IVP once {Note: RECIEVED VERBAL ORDER BY DR. MACIAS .} ha1 Route: IVP; Site: right hand; 02:45 Follow up: Response: No adverse reaction br2 02:16 Drug: Banana Bag - (Multivitamin IV 1 amp, NS 0.9% IV 1000 ml, Thiamine IV 100 mg, br2 foLIC Acid IVPB 1 mg) IV at 500 ml/hr once Route: IV; Rate: 500 ml/hr; Site: left hand; 04:20 Follow up: IV Status: Completed infusion; IV Intake: 100ml br2 02:16 Drug: Ondansetron IVP 4 mg IVP once; over 2 minutes Route: IVP; Site: left hand; br2 02:45 Follow up: Response: No adverse reaction br2 02:16 Drug: Thiamine IV 100 mg IV at bolus once Route: IV; Rate: bolus; Site: left hand; br2 02:45 Follow up: Response: No adverse reaction; IV Intake: 1ml br2 Intake: 02:45 IV: 1ml; Total: 1ml. br2 04:20 IV: 100ml; Total: 101ml. br2 Outcome: 02:02 Discharge ordered by . fabrice 04:20 Condition: stable ha1 04:20 Discharged to home via wheelchair, with family, ha1 04:20 Discharge instructions given to patient, Instructed on discharge instructions, follow ha1 up and referral plans. medication usage, Demonstrated understanding of instructions, follow-up care, medications, Prescriptions given X 1, 04:36 Patient left the ED. ha1 Signatures: Derrick Macias MD MD cha Jeffries, Jennifer jj6 Maria Elena Cottrell, RN RN ha1 Anjali Daily RN RN br2 Corrections: (The following items were deleted from the chart) 04:25 01:06 Chief complaint: Patient states: PT BROUGHT TO ER DUE TO SIEZURES. PT HAS BEEN br2 DRINKING ETOH. PT WAS GIVEN VERSED 5MG X2 PER NASAL BY EMS PATIENT SERVICES TECHNICIAN br2 04:35 04:34 Discharged to home via wheelchair, with family, ha1 ha1 04:35 04:34 Condition: stable ha1 ha1 04:35 04:34 Discharge instructions given to patient, Instructed on discharge instructions, ha1 follow up and referral plans. medication usage, Demonstrated understanding of instructions, follow-up care, medications, Prescriptions given X 1, ha1 05:38 01:06 BP 149 / 91; Pulse 127bpm; Resp 16bpm; Spontaneous; Pulse Ox 98% RA; Temp 9.1F br2 Temporal; 81.65 kg; Height 5 ft. 3 in.; BMI: 31.8; Pain 10/10, Adult; br2
--- NOTE | 2024-08-29 02:03 | EDPHYS ---
Physician Documentation [facility] Name: Heather Coon Age: 54 yrs Sex: Female : 1970 Arrival Date: 08/29/2024 Time: 00:39 Bed 4 Private MD: Derrick Mota HPI: 08/29 01:01 This 54 yrs old Female presents to ER via Unassigned with complaints of fabrice Seizure. 01:01 The patient presents with a history of multiple seizures, an unknown number. Character fabrice of seizure(s): Loss of consciousness: the patient did not lose consciousness, Motor activity: generalized, Incontinence: none, Apnea: the patient did not experience apnea, Circulation: the patient did not experience evidence of pulse disturbance. Seizure onset: just prior to arrival. Context: the seizure(s) was witnessed, by family. Seizure Hx: Cause: unknown. Associated injury: The patient did not suffer any apparent associated injury. Current symptoms: confusion. The patient has experienced similar episodes in the past, a few times. - Family history:: not pertinent. ROS: 01:03 Constitutional: Negative for fever, chills, and weight loss, Eyes: Negative for injury, fabrice pain, redness, and discharge, ENT: Negative for injury, pain, and discharge, Neck: Negative for injury, pain, and swelling, Cardiovascular: Negative for chest pain, palpitations, and edema, Respiratory: Negative for shortness of breath, cough, wheezing, and pleuritic chest pain, Abdomen/GI: Negative for abdominal pain, nausea, vomiting, diarrhea, and constipation, Back: Negative for injury and pain, : Negative for injury, bleeding, discharge, and swelling, MS/Extremity: Negative for injury and deformity, Skin: Negative for injury, rash, and discoloration, Neuro: Negative for headache, weakness, numbness, tingling, and seizure, Allergy/Immunology: Negative for hives, rash, and allergies, Endocrine: Negative for neck swelling, polydipsia, polyuria, polyphagia, and marked weight changes, Hematologic/Lymphatic: Negative for swollen nodes, abnormal bleeding, and unusual bruising, 01:03 Psych: Positive for anxiety, depression, Exam: 01:03 Constitutional: This is a well developed, well nourished patient who is awake, alert, fabrice and in no acute distress. Head/Face: Normocephalic, atraumatic. Eyes: Pupils equal round and reactive to light, extra-ocular motions intact. Lids and lashes normal. Conjunctiva and sclera are non-icteric and not injected. Cornea within normal limits. Periorbital areas with no swelling, redness, or edema. ENT: Nares patent. No nasal discharge, no septal abnormalities noted. Tympanic membranes are normal and external auditory canals are clear. Oropharynx with no redness, swelling, or masses, exudates, or evidence of obstruction, uvula midline. Mucous membranes moist. Neck: Trachea midline, no thyromegaly or masses palpated, and no cervical lymphadenopathy. Supple, full range of motion without nuchal rigidity, or vertebral point tenderness. No Meningismus. Chest/axilla: Normal chest wall appearance and motion. Nontender with no deformity. No lesions are appreciated. Cardiovascular: Regular rate and rhythm with a normal S1 and S2. No gallops, murmurs, or rubs. Normal PMI, no JVD. No pulse deficits. Respiratory: Lungs have equal breath sounds bilaterally, clear to auscultation and percussion. No rales, rhonchi or wheezes noted. No increased work of breathing, no retractions or nasal flaring. Abdomen/GI: Soft, non-tender, with normal bowel sounds. No distension or tympany. No guarding or rebound. No evidence of tenderness throughout. Back: No spinal tenderness. No costovertebral tenderness. Full range of motion. Skin: Warm, dry with normal turgor. Normal color with no rashes, no lesions, and no evidence of cellulitis. MS/ Extremity: Pulses equal, no cyanosis. Neurovascular intact. Full, normal range of motion., bilateral aka Neuro: Awake and alert, GCS 15, oriented to person, place, time, and situation. Cranial nerves II-XII grossly intact. Motor strength 5/5 in all extremities. Sensory grossly intact. Cerebellar exam normal. Normal gait. Psych: Awake, alert, with orientation to person, place and time. Behavior, mood, and affect are within normal limits. Vital Signs: 01:06 BP 149 / 91; Pulse 127; Resp 16 S; Temp 97.1(TE); Pulse Ox 98% on R/A; Weight 81.65 kg; br2 Height 5 ft. 3 in. ; Pain 10/10; 01:30 BP 140 / 84; Pulse 110; Resp 17 S; Pulse Ox 98% on R/A; br2 01:06 Body Mass Index 31.89 (81.65 kg, 160.02 cm) br2 01:06 Pain Scale: Adult br2 MDM: 00:42 Medical Screening Exam initiated fabrice 01:30 Differential diagnosis: Ingestion/exposure to DRUGS, ETOH. Differential diagnosis: CVA, fabrice electrolyte abnormality, alcohol intoxication, hypoglycemia, intracranial bleed, overdose, seizure, sepsis, TIA, UTI, volume depletion, drug overdose, cardiac arrhythmia, seizure. Data reviewed: vital signs, nurses notes, lab test result(s), EKG. Consideration of Admission/Observation Escalation of care including admission/observation considered. I considered the following discharge prescriptions or medication management in the emergency department Medications were administered in the Emergency Department. See MAR. Independent interpretation of the following test(s) in the Emergency Department EKG: See my EKG interpretation above. Test considered but Not performed: CT: NO CT HEAD. Historians other than the Patient: EMS: EMS WELL INFORMED. Care significantly affected by the following chronic conditions: Obesity, SEIZURE DO. 08/29 01: Order name: Acetaminophen; Complete Time: [facility] 08/29 01:01 Order name: Basic Metabolic Panel; Complete Time: fabrice 08/29 01:01 Order name: CBC with Diff; Complete Time: fabrice 08/29 01:01 Order name: ETOH Level; Complete Time: 02:17 fabrice 08/29 01:01 Order name: Hepatic Function; Complete Time: [facility] 08/29 01:01 Order name: PT-INR; Complete Time: fabrice 08/29 01:01 Order name: Ptt, Activated; Complete Time: fabrice 08/29 01:01 Order name: Salicylate; Complete Time: [facility] 08/29 01:01 Order name: Depakote; Complete Time: [facility] 08/29 01:01 Order name: EKG - Nurse/Tech; Complete Time: :42 fabrice 08/29 01:01 Order name: IV Saline Lock; Complete Time: 01:42 fabrice 08/29 01:01 Order name: Labs collected and sent; Complete Time: :42 fabrice 08/29 01:01 Order name: Suicide Screening ([place]) fabrice Administered Medications: 02:15 Drug: Ativan (LORazepam) 1 mg IVP once {Note: RECIEVED VERBAL ORDER BY DR. MACIAS .} ha1 Route: IVP; Site: right hand; 02:45 Follow up: Response: No adverse reaction br2 02:16 Drug: Banana Bag - (Multivitamin IV 1 amp, NS 0.9% IV 1000 ml, Thiamine IV 100 mg, br2 foLIC Acid IVPB 1 mg) IV at 500 ml/hr once Route: IV; Rate: 500 ml/hr; Site: left hand; 04:20 Follow up: IV Status: Completed infusion; IV Intake: 100ml br2 02:16 Drug: Ondansetron IVP 4 mg IVP once; over 2 minutes Route: IVP; Site: left hand; br2 02:45 Follow up: Response: No adverse reaction br2 02:16 Drug: Thiamine IV 100 mg IV at bolus once Route: IV; Rate: bolus; Site: left hand; br2 02:45 Follow up: Response: No adverse reaction; IV Intake: 1ml br2 Disposition Summary: 08/29/24 02:02 Discharge Ordered Notes: Location: Home fabrice Problem: new fabrice Symptoms: have improved fabrice Condition: Fair fabrice Diagnosis - Alcohol abuse with intoxication fabrice - Epileptic seizures related to external causes, not intractable fabrice Followup: fabrice - With: Private Physician - When: 2 - 3 days - Reason: Recheck today's complaints, Continuance of care, Re-evaluation by your physician Discharge Instructions: - Discharge Summary Sheet fabrice - Alcohol Intoxication fabrice - Seizure, Adult fabrice - Alcohol Intoxication, [id number] fabrice - Alcohol Abuse and Nutrition fabrice - Seizure, Adult, [id number] fabrice Forms: - Medication Reconciliation Form fabrice - Antibiotic Education fabrice - Prescription Opioid Use fabrice - Patient Portal Instructions [facility] - Leadership Thank You Letter [facility] Prescriptions: - ondansetron 4 mg Oral Tablet,disintegrating - take 1 tablet ORAL route 3 times per day for 5 days nausea, prn; 20 tablet; [facility] Refills: 0, Product Selection Permitted Signatures: Dispatcher [employer] Derrick Payton MD MD cha Ayala, Heidy, RN RN ha1 Anjali Daily RN RN br2 Corrections: (The following items were deleted from the chart) 04:26 03:47 Head Brain Wo Cont+CT.RAD.BRZ ordered. EDMS EDMS
[2024-08-29] MEDS ORDERED: LORazepam 2 MG/ML VIAL ONE (02:08)
[2024-08-29 04:40] VITALS: BP 149/91; TEMP 9.1; O2SAT 98
== END 2024-08-29 04:36 | disposition home or self-care (01) ==
LOC: ER 00:39
DX: G40.509 Epileptic seizures related to external causes, not intractable, without status epilepticus (principal); F10.129 Alcohol abuse with intoxication, unspecified
CPT/HCPCS: 85025; 80048; 36415; 85610; 80076; 80164; 85730; 80143; 80179; 82077; J3411; J2405; 99284

== ENCOUNTER 2024-09-09 20:24 | Emergency (ER) | payer OTHER ==
[2024-09-09] MEDS ORDERED: DIVALPROEX DR 250 MG TAB PO ONE (20:34)
--- OUTSIDE RECORDS SUMMARY | 2024-09-09 20:48 | XMS REPORT | Continuity of Care Document ---
Author Name Unknown Address [address] [facility] [address] [place] [address] [facility] thconnect Address [address] [facility] [address] [place] [address] Care Team Providers Care Testing Lead Name Role Phone Myacaro Aneta SUAREZ Primary Care Physician PANKAJ OBREGON Attending Clinician Un available AYDEE GO Attending Clinician Unavailable MARIANELA BURGESS Attending Clinician UnavailADAM Moreno Attending Clinician Unavailable THOMAS LOZOYA Attending Clinician Nina MARIAH Quiroga Attending Clinician Unavailable Doctor Unassigned, [place] Attending Clinician U WENDI Reardon Attending Clinician Unavailable Brooklynn Paige MD Attending Clinician [phone] Wendi Dick MD Attending Clinician [phone] System, Provider Not In Attending Clinician Unav ailGUSTAVO Lindsey Attending Clinician Unavailable CHRISSY MOHR Attending Clinician Unavailable CHRISSY MOHR Attending Clinician Unavailable Chrissy Mohr DO Attending Clinician [phone] MD GERRY Attending Clinician Unavailab le Doctor Unassigned, [place] Attending Clinician U MORALES Matamoros Attending Clinician Unavailab RADHA Vargas Attending Clinician Unavailable RADHA WYATT Attending Clinician Unavailable Gerardo CAMPOS, Veronique Olivia Attending Clinician + [phone] DARRICK ALTAMIRANO Attending Clinician Unavailabl itz Del [place] INFORMATION DEVELOPER, Olena Attending Clinician [phone] Alfonso Lopez Attending Clinician [phone] Darrick Altamirano MD Attending Clinician [phone] Morena CAMPOS, Jodi Gonzalez Attending Clinician Unavail able TAL BENAVIDEZ Attending Clinician Unavailable Mj Bryan DO Attending Clinician +[phone] Benavidez MD Attending Clinician [phone] MOJGAN SIMENTAL Attending Clinician Unav Connor Ortiz MD Attending Clinician + [phone] Mojgan Simental MD Attending Clinician + Madeline Mckinley RN Attending Clinician Unavailab MADELINE Edwards Attending Clinician Unavailable MADELINE PIERRE Attending Clinician Unavailable Megan Rondon MD Attending Clinician +[phone] Altamirano MD Attending Clinician +[phone] Ivis Mcdermott MD Attending Clinician [phone] Nola ELIZONOD, Ryder Joshi Attending Clinici an AARON LEDESMA Attending Clinician Unavailable Tracy ELIZONDO, Cris Attending Clinician +[phone] EFRA BABCOCK Attending Clinician Un available MYLA LIEBERMAN Attending Clinician Unavailable JUANY GREEN Attending Clinician Unavailable PROVIDER, CAMPAIGNS Attending Clinician Unavaila SIDDAHRTH Kaye Attending Clinician UnavailMARGOT Dexter Attending Clinician Unavailable SARAI JULES Attending Clinician Unavaila YONATAN Juarez Attending Clinician Unava radha FERRER, EDWARD Attending Clinician Unavailable Nir ELIZONDO, [place] Olivia Attending Clinician Unavailab monroe Obregon MD, Pankaj Attending Clinician [phone] Edward Altamirano DO Attending Clinician [phone] Bud ELIZONDO, Edward Attending Clinician [phone] DEMETRIUS TOBAR Attending Clinician Unavailab QUIN Armenta Attending Clinician Unavail able Kael INFORMATION DEVELOPER, Quin R Attending Clinician [phone] MJ BRYAN Attending Clinician Unavailable Provider, Not In System Attending Clinician Unav arianna Burgess MD, Marianela Hamilton Attending Clinician [phone] Aydee Go MD Attending Clinician [phone] Dallas Gomez Attending Clinician +[phone] Adam Garcia MD Attending Clinician [phone] Mercedez ELIZONDO, Harry Attending Clinician [phone] Rocael ELIZONDO, Antwon Attending Clinician Unavailab monroe Bui MD, Yue Attending Clinician [phone] Connie Davey MD Attending Clinician [phone] Mariah Aldridge MD Attending Clinician +[phone] Valerio ELIZONDO, Thomas Reddy Attending Clinician + [phone] CONNIE DAVEY Attending Clinician UnavailAlfonso Oh Attending Clinician Unavailable RITCHIE WARREN Attending Clinician Unavailable Briana ELIZONDO, Ritchie Stoner Attending Clinician [phone] Rk CAMPOS, Margot Stoner Attending Clinician +[phone] PARRISH WHEATLEY Attending Clinician Unavaila yaya Mendoza MD, Halima Hummel Attending Clinician [phone] Lucho ELIZONDO, Ning Olivia Attending Clinician [phone] Roxi ELIZONDO, Parrish Reyez Attending Clinici an DAMI LOWRY Attending Clinician Unavailable Essence ELIZONDO, Dami Attending Clinician [phone] Corey DUMONT, Maria Teresa Attending Clinician + [phone] CHANTEL BOJORQUEZ Attending Clinician CHANTEL Kelly Attending Clinician Jack Ibrahim MD, Brandyn Otoole Attending Clinician [phone] SELINA MARTINES Attending Clinician Unavailable Sapna Vargas DO Attending Clinician [phone] Tyrel ELIZONDO, Glory Katz Attending Clinician + Selina Martines MD Attending Clinician [phone] Vaccine, [place] Pedi Attending Clinician U chelsi Pak MD, Jose Attending Clinician [phone] JOSE PAK Attending Clinician Unavailable WILLIAMS VIRK Attending Clinician Unavaila yaya Virk NUTRITION SERVICES WORKER, Williams F Attending Clinician [phone] Brandy CAMPOS, Miky Attending Clinician Unavailab monroe Chakraborty NUTRITION SERVICES WORKER, Shinberyl Attending Clinician [phone] [place] NUTRITION SERVICES WORKER, Lydia Attending Clinician [phone] Unknown, Attending Attending Clinician Unavailab le UNKNOWN, ATTENDING Attending Clinician Unavailab Estefania Berg Attending Clinician [phone] Yehuda Arcos MD Attending Clinician [phone] PANKAJ OBREGON Admitting Clinician Un available MARIANELA [...] Clinician Unavailable Dami Lowry MD Admitting Clinician +[phone] BRANDYN IBRAHIM Admitting Clinician Unavailable Brandyn Ibrahim MD Admitting Clinician GLORY ESTEVES Admitting Clinician Unav ailable WILLIAMS VIRK Admitting Clinician Unavaila ble Payers Payer Name Policy Type Policy Number Effective Date Expirati on Date Source [facility] CYNTHIA EXCH [id number] 2023 00:00:00 ISA RICARDO [id number] 2023 00:00:00 [facility] SESAR NASH COPAY FOCUS 9 [id number] 2023 00:00:00 MEDICAID PENDING PENDING 2022 00:00:00 [...] failure Disease Active 01-09 00:00: 00 [facility] Hypotensio n Hypotensio n Disease Active 6-22 00:00: 00 [facility] LV (left ventricula r) mural thrombus LV (left ventricula r) mural thrombus Disease Active 5-28 00:00: 00 [facility] Pulmonary hypertensi on Pulmonary hypertensi on Disease Active 28 00:00: 00 [facility] Shortness of breath Shortness of breath Disease Active 5-27 00:00: 00 [facility] Other chest pain Other chest pain Disease Active 5-15 00:00: 00 [facility] Depression Depression Disease Active 09-29 00:00: 00 Cynthia gonzalez Anxiety Anxiety Disease Active 09-29 00:00: 00 Cynthia gonzalez CAD (coronary artery disease) CAD (coronary artery disease) Disease Active 09-29 00:00: 00 Cynthia Erazoa raul COPD (chronic obstructiv e pulmonary disease) (multi HCC) COPD (chronic obstructiv e pulmonary disease) (multi HCC) Disease Active 09-29 00:00: 00 Cynthia gonzalez History of colon polyps History of colon polyps Disease Active 09-29 00:00: 00 Cynthia Erazoa raul Marijuana use Marijuana use Disease Active 09-29 00:00: 00 Cynthia Erazoa raul Seizure (multi HCC) Seizure (multi HCC) Disease Active 13 00:00: 00 Cynthia Erazoa raul Tobacco use Tobacco use Disease Active 09-29 00:00: 00 Cynthia gonzalez Type 2 diabetes mellitus with hyperglyce ortega, without long-term current use of insulin (multi HCC) Type 2 diabetes mellitus with hyperglyce ortega, without long-term current use of insulin (multi HCC) Disease Active 2-23 00:00: 00 Cynthia Erazoa raul CHF (congestiv e heart failure) (multi HCC) CHF (congestiv e heart failure) (multi HCC) Disease Active 09-11 00:00: 00 Cynthia Garcia - Externa raul Bipolar disorder (multi HCC) Bipolar disorder (multi HCC) Disease Active 09-11 00:00: 00 Cynthia Bedoyaold - Externa l Seizure disorder (multi HCC) Seizure disorder (multi HCC) Disease Active 09-11 00:00: 00 Cynthia Garcia - Externa l Prediabete s Prediabete s Disease Active 09-11 00:00: 00 Cynthia Garcia - Externa l Bilateral leg weakness Bilateral leg weakness Disease Active 2022-07 00:00: 00 [facility] Bilateral leg weakness Bilateral leg weakness Disease Active 2022-07 00:00: 00 [facility] Pneumonia Pneumonia Disease Active 2022-07 00:00: 00 [facility] Cavitary lesion of lung Cavitary lesion of lung Disease Active 2022-07 00:00: 00 [facility] Cervical myelopathy Cervical myelopathy Disease Recurre wie 2022-07 00:00: 00 [facility] Cervical disc disorder with myelopathy , high cervical region Cervical disc disorder with myelopathy , high cervical region Disease Active 2022-07 00:00: 00 [facility] Cord compressio n Cord compressio n Disease Recurre nce - 00:00: 00 [facility] Cauda equina compressio n Cauda equina compressio n Disease Active - 00:00: 00 [facility] Seizure Seizure Disease Recurre wie - 00:00: 00 [facility] Cardiomyop athy Cardiomyop athy Disease Active 08-01 00:00: 00 [facility] NSVT (nonsustai keisha ventricula r tachycardi a) NSVT (nonsustai keisha ventricula r tachycardi a) Disease Active 08-01 00:00: 00 [facility] Elevated brain natriureti c peptide (BNP) level Elevated brain natriureti c peptide (BNP) level Disease Active 07-31 00:00: 00 [facility] Chest pain, unspecifie d type Chest pain, unspecifie d type Disease Active 07-31 00:00: 00 [facility] Elevated brain natriureti c peptide (BNP) level Elevated brain natriureti c peptide (BNP) level Disease Active 07-31 00:00: 00 [facility] Coronary artery disease involving galena coronary artery of galena heart without angina pectoris Coronary artery disease involving galena coronary artery of galena heart without angina pectoris Disease Active 07-31 00:00: 00 [facility] Snores Snores Disease Active 07-31 00:00: 00 [facility] Cigarette smoker Cigarette smoker Disease Active 07-31 00:00: 00 [facility] Primary hypertensi on Primary hypertensi on Disease Active 07-31 00:00: 00 [facility] Other hyperlipid emia Other hyperlipid emia Disease Active 07-31 00:00: 00 [facility] Coronary artery disease involving galena coronary artery of galena heart without angina pectoris Coronary artery disease involving galena coronary artery of galena heart without angina pectoris Disease Active 07-31 00:00: 00 [facility] Chronic bilateral low back pain with bilateral sciatica Chronic bilateral low back pain with bilateral sciatica Disease Active 2021-07 0-17 00:00: 00 [facility] 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 Disease Active 04-15 00:00: 00 [facility] Neuroforam inal stenosis of cervical spine Neuroforam inal stenosis of cervical spine Disease Active 04-15 00:00: 00 [facility] Stroke-lik e symptoms Stroke-lik e symptoms Disease Active 9 00:00: 00 [facility] Bipolar disorder, in partial remission, most recent episode manic Bipolar disorder, in partial remission, most recent episode manic Disease Active 09-27 00:00: 00 [facility] Neuroforam inal stenosis of lumbar spine Neuroforam inal stenosis of lumbar spine Disease Active 09-27 00:00: 00 [facility] Bilateral acute otitis media, recurrence not specified, unspecifie d otitis media type Bilateral acute otitis media, recurrence not specified, unspecifie d otitis media type Disease Active 09-27 00:00: 00 [facility] Lumbar spinal stenosis Lumbar spinal stenosis Disease Active 09-27 00:00: 00 [facility] Right-side d low back pain with sciatica, [...] a Disease Active 09-27 00:00: 00 [facility] Bipolar disorder, in partial remission, most recent episode manic Bipolar disorder, in partial remission, most recent episode manic Disease Active 09-27 00:00: 00 [facility] Obsessive compulsive disorder Obsessive compulsive disorder Disease Active 09-27 00:00: 00 [facility] Breast mass, left Breast mass, left Disease Active 09-17 00:00: 00 [facility] Anxiety Anxiety Disease Active 09-17 00:00: 00 [facility] Lower back pain Lower back pain Disease Active 09-17 00:00: 00 [facility] High blood pressure High blood pressure Disease Active 09-17 00:00: 00 [facility] COPD (chronic obstructiv e pulmonary disease) COPD (chronic obstructiv e pulmonary disease) Disease Active 09-17 00:00: 00 [facility] Obesity Obesity Disease Active 09-17 00:00: 00 [facility] Breast pain Breast pain Disease Resolve d 09-17 00:00: 00 2015-09-18 00:00:00 2015-09-18 13:19:09 [facility] Allergies, Adverse Reactions, Alerts Allergy Name Allergy Type Status Severity Reaction(s) Onset Date Inactive Date Treating Clinician Comments Source Levetira cetam Propensi ty to adverse reaction s Active - 00:00: 00 Jackybrenda raul Bolaños Epic Fluoxeti ne Propensi ty to adverse reaction s Active - 00:00: 00 [facility] Green Tea Drug Allergy Active Other (See Comments) 03-29 00:00: 00 Seizure like activity [facility] Levetira cetam Drug Allergy Active Nausea And Vomiting - 00:00: 00 Intensifi es seizure [facility] FLUOXETI NE Allergy Active 03-29 00:00: 00 [facility] GREEN TEA Allergy Active High Other - 00:00: 00 [facility] LEVETIRA CETAM Allergy Active High N\\T\\V - 00:00: 00 [facility] Green Tea Propensi ty to adverse reaction s Active - 00:00: 00 Seizure like activity [facility] Levetira cetam Propensi ty to adverse reaction s Active Nausea And Vomiting 03-29 00:00: 00 Intensifi es seizure [facility] Levetira cetam Propensi ty to adverse reaction s Active Other 11-17 00:00: 00 Intensifi es seizure Makes seizures worse Makes seizures worse Intensifi es seizure Cynthia Seybold - Externa l LEVETIRA CETAM DRUG INGREDI Active Other-Cmnt 11-17 00:00: 00 [facility] Levetira cetam Propensi ty to adverse reaction s Active Other - See comments 11-17 00:00: 00 Makes seizures worse [facility] FLUOXETI NE Allergy Active Med Rash 1-14 00:00: 00 [facility] Fluoxeti ne Propensi ty to adverse reaction s Active Rash 1-14 00:00: 00 [facility] Green Tea Propensi ty to adverse reaction s Active 08-02 00:00: 00 [facility] GREEN TEA Allergy Active 08-02 00:00: 00 [facility] Fluoxeti ne Propensi ty to adverse reaction s Active Unknown - See comments 03-25 00:00: 00 [facility] FLUOXETI NE DRUG INGREDI Active Unknown-Cmnt 03-25 00:00: 00 [facility] Diclofen ac Propensi ty to adverse reaction s Active Anxiety 11-20 00:00: 00 Cynthia Bedoyaold - Externa raul DICLOFEN AC DRUG INGREDI Active HYPERTENSION 11-20 00:00: 00 [facility] Green Tea Propensi ty to adverse reaction s Active Anxiety 08-10 00:00: 00 Seizure like activity Seizures Seizures Seizure like activity Cynthia Erazoa raul GREEN TEA DRUG INGREDI Active Med Other-Cmnt 08-10 00:00: 00 [facility] Green Tea Propensi ty to adverse reaction s to drug Active Other - See comments 08-10 00:00: 00 Seizures [facility] FLUOXETI NE HCL DRUG INGREDI Active Hives 03-19 00:00: 00 [facility] Fluoxeti ne Hcl Propensi ty to adverse reaction s Active Hives 03-19 00:00: 00 [facility] Family History Family Member Diagnosis Comments Start Date Stop Date Sourc e Natural mother Alcohol abuse C [facility] Natural mother Cancer [facility] Natural mother Diabetes [facility] Natural mother Heart disease C [facility] Natural mother Hyperlipidemia [facility] Natural mother Kidney disease [facility] Natural mother Stroke [facility] Natural mother Alcohol abuse C [facility] Natural mother Stroke [facility] Paternal uncle Diabetes [facility] Social History Social Habit Start Date Stop Date Quantity Comments Source History of tobacco use Cigarette Smoker Cynthia boyd - External History SDOH Alcohol Frequency [facility] History SDOH Alcohol Std Drinks [facility] History SDOH Alcohol Binge [facility] History SDOH Housing Homeless Last Year [facility] ASSERTION Not [facility] Sexual orientation C HI [facility] History SDOH Social Connections Get Together [facility] History SDOH Social Connections Baptism [facility] History SDOH Social Connections Membership [facility] History SDOH Social Connections Meetings [facility] Gender identity Jeffrey margarita Bolaños [facility] Tobacco use and exposure 2023-09-30 00:00:00 2023-09-30 00:00:00 Smokeless tobacco non-user Cynthia Garcia - External Alcohol intake 2023-09-30 00:00:00 2023-09-30 00:00:00 .57 /d Cynthia Garcia - External Education - What is the highest level of school you have completed or the highest degree you have received? 2023-09-30 00:00:00 2023-09-30 00:00:00 GED or equivalent Cynthia Garcia - External History of Social function 2023-08-03 00:00:00 2023-08-03 00:00:00 [facility] Alcoholic beverage intake 2023-06-02 00:00:00 2023-06-02 00:00:00 Current drinker of alcohol (finding) [facility] Exposure to SARS-CoV-2 (event) 2023-05-18 00:00:00 2023-05-28 07:28:00 Not sure [facility] History SDOH Housing Unable to Pay - In the last 12 months, was there a time when you were not able to pay the mortgage or rent on time? 2023-05-26 00:00:00 2023-05-26 00:00:00 Yes [facility] Cigarette pack-years 2023-05-26 00:00:00 2023-05-26 00:00:00 [facility] Cigarettes smoked current (pack per day) - Reported 2023-05-26 00:00:00 2023-05-26 00:00:00 [facility] History SDOH Housing Places Lived 2023-03-30 00:00:00 2023-03-30 00:00:00 1 [facility] Alcohol Comment 2023-03-29 00:00:00 2023-03-29 00:00:00 2x a week [facility] History SDOH Social Connections Phone 2022-08-01 00:00:00 2022-08-01 00:00:00 5 [facility] History SDOH Social Connections Living 2022-08-01 00:00:00 2022-08-01 00:00:00 5 [facility] History SDOH Physical Activity DPW 2022-08-01 00:00:00 2022-08-01 00:00:00 0 [facility] History SDOH Physical Activity MPS 2022-08-01 00:00:00 2022-08-01 00:00:00 0 [facility] History SDOH Financial 2022-08-01 00:00:00 2022-08-01 00:00:00 3 [facility] History SDOH Food Worry 2022-08-01 00:00:00 2022-08-01 00:00:00 1 [facility] History SDOH Food Scarcity 2022-08-01 00:00:00 2022-08-01 00:00:00 1 [facility] History SDOH Transport Med 2022-08-01 00:00:00 2022-08-01 00:00:00 2 [facility] History SDOH Transport Non-Med 2022-08-01 00:00:00 2022-08-01 00:00:00 2 [facility] Sex assigned at 1970 00:00:00 1970 00:00:00 [facility] Smoking Status Start Date Stop Date Source Tobacco smoking consumption unknown [facility] Smokes tobacco daily 2023-09-30 00:00:00 Cynthia Garcia - External Never smoked tobacco Cynthia Garcia - External Ex-smoker 2023-05-26 00:00:00 2023-05-26 00:00:00 [facility] Medications Ordered Medication Name Filled [...] at 1455, For 1 dose Blade Hare acetaminoph en (Tylenol) tablet 650 mg acetaminoph en (Tylenol) tablet 650 mg 08-10 14:55: 00 08-10 15:04 :00 No 650mg 650 mg, Oral, Once, On Thu08/10/24 at 1455, For 1 dose, Max acetaminop hen = 4000mg/day (4gm/day) Blade Hare HYDROcodone -acetaminop hen ([place]) 5-325 MG per tablet 1 tablet HYDROcodone -acetaminop hen ([place]o) 5-325 MG per tablet 1 tablet 08-10 [...] slow IV Push over 1-2 minutes Blade Hare ondansetron (Zofran) injection 4 mg ondansetron (Zofran) injection 4 mg 08-10 05:55: 00 08-10 06:02 :00 No 4mg 4 mg, Intravenou s, Once, On Thu08/10/24 at 0555, For 1 dose Blade Bolaños Epic PHENobarbit al (Luminal) injection 130 [...] Thu08/10/24 at 0540, For 1 dose Blade Hare divalproex (Depakote) 500 MG EC tablet divalproex (Depakote) 500 MG EC tablet 08-10 00:00: 00 08-10 23:59 :00 No 1000mg Q.5D Take 2 tablets by mouth in the morning and 2 tablets in the evening. Do not crush, chew, or split.. Blade Hare gabapentin (Neurontin) 300 MG capsule gabapentin (Neurontin) 300 MG capsule 08-10 00:00: 00 09-09 23:59 :00 No 300mg [id number] 3D Take 1 capsule by mouth in the morning and 1 capsule at noon and 1 capsule in the evening. [facility] H[facility] cefpodoxime (Vantin) 200 MG tablet cefpodoxime (Vantin) 200 MG tablet 08-10 00:00: 00 08-20 23:59 :00 No 200mg Q.5D Take 1 tablet by mouth in the morning and 1 tablet in the evening. Do all this for 10 days. Memoria l Miky Epic methocarbam ol (Robaxin) 750 MG tablet methocarbam ol (Robaxin) 750 MG tablet 1-22 00:00: 00 08-20 23:59 :00 No 750mg [...] unable to tolerate oral medication s? Yes [facility] valproate (DEPACON) 500 mg in D5W piggyback 04-03 03:30: 00 04-03 04:49 :00 No 500mg 500 mg, IV Piggyback, ONCE NOW, 1 dose, On 04/02/24 at 2245, Administer over 30 Minutes, 100 mL [facility] divalproex (DEPAKOTE) delayed release tablet 250 mg 04-03 03:15: 00 04-03 04:07 :00 No 250mg 250 mg, Oral, ONCE NOW, 1 dose, On 04/02/24 at 2215, MICHAEL [facility] ondansetron (ZOFRAN (PF)) injection 4 mg 04-03 02:30: 00 04-03 04:58 :00 No 4mg 4 mg, Slow IV Push, ONCE, 1 dose, On 04/02/24 at 2130, MICHAEL [facility] morpHINE (4 mg/mL) injection 4 mg 04-03 02:30: 00 04-03 04:58 :00 No 4mg 4 mg, Slow IV Push, ONCE, 1 dose, On 04/02/24 at 2130, STAT [facility] divalproex ER 500 mg 24 hr tablet 04-03 00:00: 00 Yes [id number] 1000mg Take 2 tablets by mouth every 12 (twelve) hours. [facility] KCL 20 mEq tablet 9-15 00:00: 00 04-09 04:59 :00 No [id number] 40meq Take 2 tablets by mouth in the morning for 5 days. [facility] LORazepam (ATIVAN) tablet 1 mg 01-12 04:00: 00 01-12 03:56 :00 No 1mg 1 mg, Oral, ONCE, 1 dose, On Thu01/12/24 at 2300, MICHAEL [facility] ondansetron (ZOFRAN (PF)) injection 8 mg 01-12 04:00: 00 01-12 03:55 :00 No 8mg 8 mg, Slow IV Push, ONCE, 1 dose, On Thu01/12/24 at 2300, MICHAEL [facility] morpHINE (4 mg/mL) injection 6 mg 01-12 04:00: 00 01-12 03:55 :00 No 6mg 6 mg, Slow IV Push, ONCE, 1 dose, On Thu01/12/24 at 2300, STAT [facility] mirtazapine (REMERON) tablet 15 mg 01-10 02:00: 00 Yes 15mg [facility] atorvastati n (LIPITOR) tablet 40 mg 01-10 02:00: 00 Yes 40mg [facility] MULTIVITAMI N ORAL 01-09 15:56: 06 Yes 1{tbl} Take 1 Tab by mouth daily. [facility] omega-3 fatty acids-vitam in E (FISH OIL) 1,000 mg capsule 01-09 15:56: 06 Yes 1g Take 1 g by mouth daily. [facility] loratadine (CLARITIN LIQUI-GEL) 10 mg capsule 01-09 15:56: 06 Yes Take by mouth daily. [facility] metoprolol succinate XL 50 mg 24 hr tablet 01-09 15:56: 06 01-09 00:00 :00 No 50mg Take 1 tablet by mouth in the morning. [facility] KCL (KLOR-CON M20) tablet 40 mEq 01-09 15:45: 00 01-09 17:43 :00 No 40meq 40 mEq, Oral, ONCE, 1 dose, On 01/10/24 at 1045, Routine [facility] ondansetron 4 mg tablet 01-09 14:46: 23 01-09 00:00 :00 No 4mg Take 1 tablet by mouth every 8 (eight) hours as needed for Nausea and Vomiting (N/V). [facility] perflutren protein-A microsphr (OPTISON) injection 3 mL 01-09 14:15: 00 01-09 14:15 :00 No [id number] 3mL 3 mL, IV Push, ONCE, 1 dose, On Thu01/10/24 at 0915, Routine [facility] tamsulosin (FLOMAX) capsule 0.4 mg 01-09 14:00: 00 Yes .4mg 0.4 mg, Oral, DAILY, First dose on 01/10/24 at 0900, Until Discontinu ed, Routine [facility] metoprolol succinate XL (TOPROL XL) tablet 12.5 mg 01-09 14:00: 00 Yes 12.5mg [facility] DULoxetine (CYMBALTA) capsule 30 mg 01-09 14:00: 00 Yes 30mg 30 mg, Oral, DAILY, First dose on 01/10/24 at 0900, Until Discontinu ed, Routine [facility] digoxin (LANOXIN) tablet 125 mcg 01-09 14:00: 00 Yes 125ug 125 mcg, Oral, DAILY, First dose on 01/10/24 at 0900, Until Discontinu ed [facility] aspirin chewable tablet 81 mg 01-09 14:00: 00 Yes 81mg 81 mg, Oral, DAILY, First dose on 01/10/24 at 0900, Until Discontinu ed, Routine [facility] nicotine (NICODERM) 21 mg/24 hr patch 1 Patch 01-09 13:45: 00 Yes 1{patch } 1 Patch, Topical, Administer over 24 Hours, Q24H, First dose on 01/10/24 at 0845, Until Discontinu ed, Routine [facility] gabapentin (NEURONTIN) capsule 100 mg 01-09 13:00: 00 Yes 100mg 100 mg, Oral, TID, First dose on Thu01/10/24 at 0800, Until Discontinu ed, Routine [facility] divalproex (DEPAKOTE) delayed release tablet 1,000 mg 01-09 13:00: 00 Yes 1000mg 1,000 mg, Oral, Q12H, First dose on 01/10/24 at 0800, Until Discontinu ed, Routine [facility] cyclobenzap rine (FLEXERIL) tablet 5 mg 01-09 13:00: 00 Yes 5mg 5 mg, Oral, TID, First dose on 01/10/24 at 0800, Until Discontinu ed, Routine [facility] apixaban (ELIQUIS) tablet 5 mg 01-09 13:00: 00 02-27 12:59 :00 No [id number] 5mg 5 mg, Oral, BID, 98 doses, First dose on Thu01/10/24 at 0800, Last dose on 02/27/24 at 2000, Routine, Indication s: DVT/PE [facility] FENTanyl PF (SUBLIMAZE (PF)) injection 25 mcg 01-09 03:08: 20 01-10 03:07 :20 No 25ug 25 mcg, Slow IV Push, Q4HPRN, Starting on 01/09/24 at 2208, Until 01/10/24 at 2207, Routine, Pain (scale 7-10), Pain (scale 4-6) [facility] acetaminoph en (TYLENOL) tablet 650 mg 01-09 03:08: 07 Yes 650mg 650 mg, Oral, Q6HPRN, Starting on 01/09/24 at 2208, Until Discontinu ed, Routine, Pain (scale 1-3) [facility] ondansetron (ZOFRAN (PF)) injection 4 mg 01-09 02:45: 00 01-09 01:53 :00 No 4mg 4 mg, Slow IV Push, ONCE, 1 dose, On 01/09/24 at 2145, MICHAEL [facility] ipratropium -albuteroL (DUONEB) 0.5 mg-3 mg(2.5 mg base)/3 mL nebulizer solution 3 mL 01-09 02:45: 00 01-09 02:01 :00 No 3mL 3 mL, Inhalation , ONCE, 1 dose, On 01/09/24 at 2145, Routine [facility] cefTRIAXone (ROCEPHIN) 1,000 mg in NaCl 0.9% (NS) 100 mL MINI-BAG 01-09 02:30: 00 01-09 03:10 :00 No 1000mg 1,000 mg, IV Piggyback, ONCE, 1 dose, On 01/09/24 at 2130, Administer over 30 Minutes, 100 mL, Reason for Anti-Infec tive: Documented Infection, Documented Infection Site: Respirator y, Duration of Therapy: Once (ED) [facility] famotidine (PEPCID (PF)) injection 20 mg 01-09 01:45: 00 01-09 01:53 :00 No 20mg 20 mg, Slow IV Push, ONCE, 1 dose, On 01/09/24 at 2045, MICHAEL [facility] iopamidol (ISOVUE 370-500 mL) injection 90 mL 01-09 00:45: 00 01-09 00:45 :00 No [id number] 90mL 90 mL, Intravenou s, ONCE, 1 dose, On 01/09/24 at 1945, Routine [facility] atorvastati n 40 mg tablet 01-09 00:00: 00 Yes [id number] 20mg Take 0.5 tablets by mouth at bedtime. [facility] furosemide 40 mg tablet 01-09 00:00: 00 Yes [id number] 40mg Take 1 tablet by mouth every morning and evening. [facility] ipratropium -albuteroL 0.5 mg-3 mg(2.5 mg base)/3 mL nebulizer solution 01-09 00:00: 00 Yes [id number] 3mL Inhale 3 mL every 6 (six) hours as needed for Wheezing or Shortness of Breath. [facility] predniSONE 20 mg tablet 01-09 00:00: 00 01-15 04:59 :00 No [id number] 40mg Take 2 tablets by mouth in the morning for 5 days. [facility] FENTanyl PF (SUBLIMAZE (PF)) injection 50 mcg 01-08 22:45: 00 01-08 23:10 :00 No 50ug 50 mcg, Slow IV Push, ONCE, 1 dose, On 01/09/24 at 1745, STAT [facility] ondansetron (ZOFRAN (PF)) injection 4 mg 01-08 21:30: 00 01-08 21:47 :00 No 4mg 4 mg, Slow IV Push, ONCE, 1 dose, On 01/09/24 at 1630, MICHAEL [facility] aspirin tablet 325 mg 01-08 21:15: 00 01-08 21:47 :00 No 325mg 325 mg, Oral, ONCE, 1 dose, On 01/09/24 at 1615, STAT [facility] spironolact one 25 mg tablet 12-15 00:00: 00 01-15 04:59 :00 No [id number] 25mg Take 1 tablet by mouth in the morning for 30 days. [facility] furosemide (LASIX) tablet 40 mg 12-14 22:00: 00 Yes 40mg 40 mg, Oral, QAM+PM, First dose (after last modificati on) on Thu12/15/23 at 1700, Until Discontinu ed, Routine [facility] spironolact one (ALDACTONE) tablet 25 mg 12-14 14:00: 00 Yes 25mg 25 mg, Oral, DAILY, First dose on Thu12/15/23 at 0900, Until Discontinu ed, Routine [facility] tamsulosin (FLOMAX) capsule 0.4 mg 12-14 14:00: 00 Yes .4mg 0.4 mg, Oral, DAILY, First dose on Thu12/15/23 at 0900, Until Discontinu ed, Routine [facility] metoprolol succinate XL (TOPROL XL) tablet 12.5 mg 12-14 14:00: 00 Yes 12.5mg 12.5 mg, Oral, DAILY, First dose on Thu12/15/23 at 0900, Until Discontinu ed, Routine [facility] lisinopriL (PRINIVIL,Z ESTRIL) tablet 2.5 mg 12-14 14:00: 00 Yes 2.5mg [facility] DULoxetine (CYMBALTA) capsule 30 mg 12-14 14:00: 00 Yes 30mg 30 mg, Oral, DAILY, First dose on Thu12/15/23 at 0900, Until Discontinu ed, Routine [facility] digoxin (LANOXIN) tablet 125 mcg 12-14 14:00: 00 Yes 125ug 125 mcg, Oral, DAILY, First dose on Thu12/15/23 at 0900, Until Discontinu ed [facility] aspirin chewable tablet 81 mg 12-14 14:00: 00 Yes 81mg 81 mg, Oral, DAILY, First dose on Thu12/15/23 at 0900, Until Discontinu ed, Routine [facility] furosemide (LASIX) injection 40 mg 12-14 14:00: 00 12-14 13:49 :00 No 40mg 40 mg, Slow IV Push, ONCE, 1 dose, On Thu12/15/23 at 0900, Routine [facility] MULTIVITAMI N ORAL 12-14 11:08: 41 Yes 1{tbl} Take 1 Tab by mouth daily. [facility] omega-3 fatty acids-vitam in E (FISH OIL) 1,000 mg capsule 12-14 11:08: 41 Yes 1g Take 1 g by mouth daily. [facility] loratadine (CLARITIN LIQUI-GEL) 10 mg capsule 12-14 11:08: 41 Yes Take by mouth daily. [facility] ondansetron 4 mg tablet 12-14 11:08: 41 Yes 4mg Take 1 tablet by mouth every 8 (eight) hours as needed for Nausea and Vomiting (N/V). [facility] methylPREDN ISolone sod succ (SOLU-MEDRO L (PF)) injection 40 mg 12-14 11:00: 00 Yes 40mg 40 mg, Intravenou s, Q6H, First dose (after last modificati on) on Thu12/15/23 at 0600, Until Discontinu ed, Routine [facility] ipratropium -albuteroL (DUONEB) 0.5 mg-3 mg(2.5 mg base)/3 mL nebulizer solution 3 mL 12-14 08:08: 34 Yes 3mL 3 mL, Inhalation , QIDPRN, Starting on Thu12/15/23 at 0308, Until Discontinu ed, Routine, Wheezing, Shortness of Breath, Bronchospa sm, Chest tightness [facility] ipratropium -albuteroL (DUONEB) 0.5 mg-3 mg(2.5 mg base)/3 mL nebulizer solution 3 mL 12-14 03:19: 38 Yes 3mL 3 mL, Inhalation , QIDPRN, Starting on Thu12/14/23 at 2219, Until Discontinu ed, Routine, Wheezing, Shortness of Breath, Bronchospa sm, Chest tightness [facility] Sliding Scale Insulin - Lispro (HumaLOG) 12-14 02:00: 00 [facility] mirtazapine (REMERON) tablet 15 mg 12-14 02:00: 00 Yes 15mg 15 mg, Oral, QHS, First dose on Thu12/14/23 at 2100, Until Discontinu ed, Routine [facility] atorvastati n (LIPITOR) tablet 40 mg 12-14 02:00: 00 Yes 40mg 40 mg, Oral, QHS, First dose on Thu12/14/23 at 2100, Until Discontinu ed, Routine [facility] lacosamide (VIMPAT) tablet 100 mg 12-14 01:00: 00 Yes 100mg 100 mg, Oral, BID, First dose on Thu12/14/23 at 1999, Until Discontinu ed, Routine [facility] gabapentin (NEURONTIN) capsule 100 mg 12-14 01:00: 00 Yes 100mg 100 mg, Oral, TID, First dose on Thu12/14/23 at 1999, Until Discontinu ed, Routine [facility] divalproex (DEPAKOTE) delayed release tablet 1,000 mg 12-14 01:00: 00 Yes 1000mg 1,000 mg, Oral, Q12H, First dose on Thu12/14/23 at 1999, Until Discontinu ed, Routine [facility] cyclobenzap rine (FLEXERIL) tablet 5 mg 12-14 01:00: 00 Yes 5mg 5 mg, Oral, TID, First dose on Thu12/14/23 at 1999, Until Discontinu ed, [facility] ap[facility] (ELIQUIS[facility] tablet 5 mg 12-14 01:00: 00 02-28 00:59 :00 No [id number] 5mg 5 mg, Oral, BID, 152 doses, First dose on Thu12/14/23 at 1999, Last dose on Thu02/28/24 at 0800, Routine, Indication s: DVT/PE [facility] ondansetron (ZOFRAN (PF)) injection 4 mg 12-14 00:15: 00 12-13 23:26 :00 No 4mg 4 mg, Slow IV Push, ONCE, 1 dose, On Thu12/14/23 at 1915, Routine [facility] morpHINE (4 mg/mL) injection 4 mg 12-14 00:15: 00 12-13 23:27 :00 No 4mg 4 mg, Slow IV Push, ONCE, 1 dose, On Thu12/14/23 at 1915, STAT [facility] metFORMIN 500 mg tablet 12-14 00:00: 00 01-14 04:59 :00 No [id number] 500mg Take 1 tablet by mouth in the morning for 30 days. [facility] empaglifloz in (JARDIANCE) 10 mg tablet 12-14 00:00: 00 01-14 04:59 :00 No [id number] 10mg Take 1 tablet by mouth in the morning for 30 days. [facility] furosemide 40 mg tablet 12-14 00:00: 00 01-09 00:00 :00 No [id number] 60mg Take 1.5 tablets by mouth every morning and evening for 60 days. [facility] glucagon (GLUCAGEN DIAGNOSTIC KIT) injection 1 mg 12-13 23:57: 51 Yes 1mg [facility] dextrose 50 % in water (D50W) injection 25 mL 12-13 23:57: 51 Yes 25mL [facility] ondansetron (ZOFRAN (PF)) injection 4 mg 12-13 23:57: 45 Yes 4mg [facility] morpHINE (2 mg/mL) injection 2 mg 12-13 23:57: 39 12-14 23:56 :39 No 2mg 2 mg, Slow IV Push, Q4HPRN, Starting on Thu12/14/23 at 1857, Until Thu12/15/23 at 1856, Routine, Pain (scale 7-10) [facility] HYDROcodone -acetaminop hen (NORCO 5) 5-325 mg tablet 1 tablet 12-13 23:57: 36 12-15 23:56 :36 No 1{tbl} 1 tablet, Oral, Q6HPRN, Starting on Thu12/14/23 at 1857, Until Thu12/16/23 at 1856, Routine, Pain (scale 4-6) [facility] acetaminoph en (TYLENOL) tablet 650 mg 12-13 23:57: 28 Yes 650mg 650 mg, Oral, Q6HPRN, Starting on Thu12/14/23 at 1857, Until Discontinu ed, Routine, Pain (scale 1-3), Temp > 38 C [facility] dicyclomine (BENTYL) tablet 20 mg 12-13 23:53: 34 Yes 20mg [facility] methylpredn isolone sod succ (SOLU-MEDRO L) injection 125 mg 12-13 23:00: 00 12-14 08:08 :57 No 125mg 125 mg, Intravenou s, Q6H, First dose on Thu12/14/23 at 1800, Until Discontinu ed, Routine [facility] ipratropium -albuteroL (DUONEB) 0.5 mg-3 mg(2.5 mg base)/3 mL nebulizer solution 3 mL 12-13 21:00: 00 Yes 3mL 3 mL, Inhalation , QID, First dose on Thu12/14/23 at 1600, Until Discontinu ed, Routine [facility] ondansetron (ZOFRAN (PF)) injection 4 mg 12-13 20:45: 00 12-13 19:40 :00 No 4mg 4 mg, Slow IV Push, ONCE, 1 dose, On Thu12/14/23 at 1545, Routine [facility] morpHINE (4 mg/mL) injection 4 mg 12-13 20:45: 00 12-13 19:41 :00 No 4mg 4 mg, Slow IV Push, ONCE, 1 dose, On Thu12/14/23 at 1545, STAT [facility] furosemide (LASIX) tablet 40 mg 12-03 14:00: 00 Yes 40mg 40 mg, Oral, DAILY, First dose (after last modificati on) on Thu12/04/23 at 0900, Until Discontinu ed, Routine [facility] mirtazapine (REMERON) tablet 15 mg 2024-0 5-17 02:00: 00 Yes 15mg [facility] metoprolol succinate XL 25 mg 24 hr tablet 12-03 00:00: 00 Yes [id number] 12.5mg Take 0.5 tablets by mouth in the morning. [facility] Potassium Bicarb-Citr ic Acid (EFFER-K) effervescen t tablet 40 mEq 12-02 21:06: 00 12-02 23:09 :00 No 40meq 40 mEq, Oral, ONCE, 1 dose, On Arpita 12/03/23 at 1615, Routine [facility] metoprolol succinate XL (TOPROL XL) tablet 12.5 mg 12-02 16:00: 00 Yes 12.5mg 12.5 mg, Oral, DAILY, First dose on Thu12/03/23 at 1100, Until Discontinu ed, Routine [facility] sennosides (SENOKOT) tablet 8.6 mg 12-02 15:00: 00 Yes 8.6mg 8.6 mg, Oral, DAILY, First dose on Thu12/03/23 at 1000, Until Discontinu ed, Routine [facility] acetaminoph en (TYLENOL) tablet 650 mg 12-02 14:47: 07 Yes 650mg 650 mg, Oral, Q6HPRN, Starting on Thu12/03/23 at 0947, Until Discontinu ed, Routine, Pain (scale 1-3) [facility] ipratropium -albuteroL (DUONEB) 0.5 mg-3 mg(2.5 mg base)/3 mL nebulizer solution 3 mL 12-02 14:45: 00 Yes 3mL 3 mL, Inhalation , QID, First dose (after last modificati on) on Arpita 12/03/23 at 0945, Until Discontinu ed, Routine [facility] tamsulosin (FLOMAX) capsule 0.4 mg 12-02 14:00: 00 Yes .4mg 0.4 mg, Oral, DAILY, First dose on Thu12/03/23 at 0900, Until Discontinu ed, Routine [facility] DULoxetine (CYMBALTA) capsule 30 mg 12-02 14:00: 00 Yes 30mg 30 mg, Oral, DAILY, First dose on Thu12/03/23 at 0900, Until Discontinu ed, Routine [facility] digoxin (LANOXIN) tablet 125 mcg 12-02 14:00: 00 Yes 125ug 125 mcg, Oral, DAILY, First dose on Thu12/03/23 at 0900, Until Discontinu ed [facility] aspirin chewable tablet 81 mg 12-02 14:00: 00 Yes 81mg 81 mg, Oral, DAILY, First dose on Thu12/03/23 at 0900, Until Discontinu ed, Routine [facility] furosemide (LASIX) tablet 40 mg 12-02 14:00: 00 12-02 17:37 :33 No 40mg 40 mg, Oral, QAM+PM, First dose on Thu12/03/23 at 0900, Until Discontinu ed, Routine [facility] lacosamide (VIMPAT) tablet 100 mg 12-02 13:30: 00 Yes 100mg 100 mg, Oral, BID, First dose on Thu12/03/23 at 0830, Until Discontinu ed, Routine [facility] magnesium oxide (MAG-OX 400) tablet 400 mg 12-02 13:26: 00 12-02 14:24 :00 No 400mg 400 mg, Oral, ONCE, 1 dose, On Thu12/03/23 at 0830, Routine [facility] Potassium Bicarb-Citr ic Acid (EFFER-K) effervescen t tablet 40 mEq 12-02 13:19: 00 12-02 14:24 :00 No 40meq 40 mEq, Oral, ONCE, 1 dose, On Thu12/03/23 at 0830, Routine [facility] Sliding Scale Insulin - Lispro (HumaLOG) 12-02 13:00: 00 Yes Subcutaneo us, TID MEALS+HS, First dose on Thu12/03/23 at 0800, Until Discontinu ed, Routine [facility] gabapentin (NEURONTIN) capsule 100 mg 12-02 13:00: 00 Yes 100mg 100 mg, Oral, TID, First dose on Thu12/03/23 at 0800, Until Discontinu ed, Routine [facility] divalproex ER (DEPAKOTE ER) 24 hr tablet 1,000 mg 12-02 13:00: 00 Yes 1000mg 1,000 mg, Oral, Q12H, First dose on Thu12/03/23 at 0800, Until Discontinu ed, Routine [facility] cyclobenzap rine (FLEXERIL) tablet 5 mg 12-02 13:00: 00 Yes 5mg 5 mg, Oral, TID, First dose on Thu12/03/23 at 0800, Until Discontinu ed, Routine [facility] KCL (KLOR-CON M20) tablet 40 mEq 12-02 12:15: 00 12-02 14:24 :00 No 40meq 40 mEq, Oral, ONCE, 1 dose, On Thu12/03/23 at 0715, Routine [facility] KCL (KLOR-CON M20) tablet 20 mEq 12-02 04:00: 00 12-02 04:07 :00 No 20meq 20 mEq, Oral, ONCE, 1 dose, On Thu12/02/23 at 2300, Routine [facility] furosemide (LASIX) injection 40 mg 12-02 03:15: 00 12-02 02:36 :00 No 40mg 40 mg, Slow IV Push, ONCE, 1 dose, On Thu12/02/23 at 2215, Routine [facility] glucagon (GLUCAGEN DIAGNOSTIC KIT) injection 1 mg 12-02 02:54: 39 Yes 1mg 1 mg, Intramuscu lar, PRN, Starting on Thu12/02/23 at 2154, Until Discontinu ed, MICHAEL, Blood Glucose < or = 70 mg/dL and patient is NPO, unable to swallow or has mental changes. [facility] dextrose 50 % in water (D50W) injection 25 mL 12-02 02:54: 38 Yes 25mL 25 mL, Slow IV Push, PRN, Starting on Thu12/02/23 at 2154, Until Discontinu ed, MICHAEL, Blood Glucose < or = 70 mg/dL and patient is NPO, unable to swallow or has mental status changes. [facility] atorvastati n (LIPITOR) tablet 40 mg 12-02 02:00: 00 Yes 40mg 40 mg, Oral, QHS, First dose on Thu12/02/23 at 2100, Until Discontinu ed, Routine [facility] apixaban (ELIQUIS) tablet 5 mg 12-02 01:45: 00 02-28 00:59 :00 No [id number] 5mg 5 mg, Oral, BID, 176 doses, First dose on Thu12/02/23 at 2045, Last dose on Thu02/28/24 at 0800, Routine, Indication s: DVT/PE [facility] albuterol (PROVENTIL) 2.5 mg /3 mL (0.083 %) nebulizer solution 2.5 mg 12-02 01:40: 57 Yes 2.5mg [facility] ondansetron (ZOFRAN (PF)) injection 4 mg 12-02 01:02: 39 Yes 4mg 4 mg, Slow IV Push, Q6HPRN, Nausea and Vomiting (N/V), Starting on Thu12/02/23 at 2001, Doses of ondansetro n 16 mg and above need to be administer ed via IV piggyback. For Dose >=24mg ECG monitoring is advisable. [facility] lisinopriL 2.5 mg tablet 12-02 00:00: 00 Yes [id number] 2.5mg Take 1 tablet by mouth in the morning. [facility] acetaminoph en (OFIRMEV) IV piggyback 1,000 mg 12-01 22:15: 00 12-01 21:51 :00 No 1000mg 1,000 mg, IV Piggyback, at 400 mL/hr Administer over 15 Minutes, ONCE, 1 dose, On Thu12/02/23 at 1715, Routine, Is the patient strict NPO and unable to tolerate oral medication s? Yes [facility] iopamidol (ISOVUE 370-500 mL) injection 85 mL 12-01 19:15: 00 12-01 19:33 :00 No [id number] 85mL 85 mL, Intravenou s, ONCE, 1 dose, On Thu12/02/23 at 1415, Routine [facility] FENTanyl PF (SUBLIMAZE (PF)) injection 25 mcg 12-01 18:30: 00 12-01 19:38 :00 No 25ug 25 mcg, Slow IV Push, ONCE, 1 dose, On Thu12/02/23 at 1330, STAT [facility] NaCl 0.9% (NS) bolus infusion 1,000 mL 12-01 18:15: 00 12-01 21:00 :00 No 1000mL at 999 mL/hr, 1,000 mL, IV Infusion, ONCE, 1 dose, On Thu12/02/23 at 1315, STAT [facility] DULoxetine 30 mg capsule 11-28 00:00: 00 Yes [id number] 30mg Take 1 capsule by mouth in the morning. [facility] digoxin 125 mcg tablet 11-28 00:00: 00 Yes [id number] .125mg Take 1 tablet by mouth in the morning. [facility] tamsulosin 0.4 mg 24 hr capsule 11-28 00:00: 00 02-27 04:59 :00 No [id number] .4mg Take 1 capsule by mouth in the morning for 90 days. [facility] metoprolol succinate XL 50 mg 24 hr tablet 11-28 00:00: 00 12-02 00:00 :00 No [id number] 50mg Take 1 tablet by mouth in the morning. [facility] lisinopriL 5 mg tablet 11-28 00:00: 00 12-02 00:00 :00 No [id number] 5mg Take 1 tablet by mouth in the morning. [facility] spironolact one 25 mg tablet 11-28 00:00: 00 12-02 00:00 :00 No [id number] 50mg Take 2 tablets by mouth in the morning. [facility] metoprolol succinate XL (TOPROL XL) tablet 50 mg 11-27 14:00: 00 Yes 50mg 50 mg, Oral, DAILY, First dose (after last modificati on) on Thu11/28/23 at 0900, Until Discontinu ed, Routine [facility] KCL (KLOR-CON M20) tablet 40 mEq 11-27 12:30: 00 11-27 13:39 :00 No 40meq 40 mEq, Oral, ONCE, 1 dose, On Thu11/28/23 at 0730, Routine [facility] potassium chloride in water (KCL) 20 mEq/100 mL RTU IVPB 20 mEq 11-27 11:00: 00 11-27 13:40 :00 No 20meq 20 mEq, IV Piggyback, ONCE, 1 dose, On 11/28/23 at 0600, 100 mL [facility] clonazePAM (KLONOPIN) tablet 0.5 mg 11-27 02:45: 00 Yes .5mg 0.5 mg, Oral, QHS, First dose on Thu11/27/23 at 2145, Until Discontinu ed, Routine [facility] lacosamide (VIMPAT) tablet 100 mg 11-27 01:00: 00 Yes 100mg 100 mg, Oral, BID, First dose (after last modificati on) on Thu11/27/23 at 2000, Until Discontinu ed, Routine [facility] gabapentin 100 mg capsule 11-27 00:00: 00 Yes [id number] 100mg Take 1 capsule by mouth in the morning and 1 capsule at noon and 1 capsule in the evening. [facility] divalproex ER 500 mg 24 hr tablet 11-27 00:00: 00 04-03 00:00 :00 No [id number] 1000mg Take 2 tablets by mouth every 12 (twelve) hours. [facility] apixaban 5 mg tablet 11-27 00:00: 00 03-01 04:59 :00 No [id number] Take 2 tablets by mouth 2 (two) times daily for 3 days, THEN 1 tablet 2 (two) times daily for 90 days. Indication s: history of deep vein thrombosis [facility] furosemide 40 mg tablet 11-27 00:00: 00 12-14 00:00 :00 No [id number] 40mg Take 1 tablet by mouth every morning and evening. [facility] lacosamide (VIMPAT) 200 mg in NaCl 0.9% (NS) 50 mL piggyback 11-26 18:45: 00 11-26 23:04 :00 No 200mg 200 mg, IV Piggyback, ONCE, 1 dose, On Thu11/27/23 at 1345, Administer over 30 Minutes, 50 mL [facility] furosemide (LASIX) tablet 40 mg 11-26 14:00: 00 Yes 40mg 40 mg, Oral, QAM+PM, First dose on Thu11/27/23 at 0900, Until Discontinu ed, Routine [facility] divalproex ER (DEPAKOTE ER) 24 hr tablet 1,000 mg 11-26 13:00: 00 Yes 1000mg 1,000 mg, Oral, Q12H, First dose (after last modificati on) on Thu11/27/23 at 0800, Until Discontinu ed, Routine [facility] furosemide (LASIX) injection 40 mg 11-26 01:00: 00 11-26 01:57 :00 No 40mg 40 mg, Slow IV Push, BID, 1 dose, First dose (after last modificati on) on Arpita 11/26/23 at 2000, Routine [facility] divalproex ER (DEPAKOTE ER) 24 hr tablet 1,250 mg 11-26 01:00: 00 11-26 02:38 :40 No 1250mg 1,250 mg, Oral, Q12H, First dose (after last modificati on) on Thu11/26/23 at 2000, Until Discontinu ed, Routine [facility] cyanocobala min (DODEX) injection 1,000 mcg 11-25 18:30: 00 11-25 19:31 :00 No 1000ug 1,000 mcg, Intramuscu lar, ONCE, 1 dose, On Thu11/26/23 at 1330, Routine [facility] thiamine (VITAMIN B1) 100 mg in NaCl 0.9% (NS) piggyback 11-25 18:00: 00 11-30 13:59 :00 No 100mg IV Piggyback, DAILY, 5 doses, First dose on Thu11/26/23 at 1300, Last dose on Thu11/30/23 at 0900, 50 mL [facility] digoxin (LANOXIN) tablet 125 mcg 11-25 16:30: 00 Yes 125ug 125 mcg, Oral, DAILY, First dose on Thu11/26/23 at 1130, Until Discontinu ed, Routine [facility] metoprolol succinate XL (TOPROL XL) tablet 25 mg 11-25 16:15: 00 11-27 13:09 :49 No 25mg 25 mg, Oral, DAILY, First dose on Thu11/26/23 at 1115, Until Discontinu ed, Routine [facility] apixaban (ELIQUIS) tablet 10 mg 11-25 01:00: [...] Routine, Indication s: DVT/PE [Order 2 End] [facility] furosemide (LASIX) injection 40 mg 11-25 01:00: 00 11-25 16:08 :20 No 40mg 40 mg, Slow IV Push, BID, First dose (after last modificati on) on Thu11/25/23 at 2000, Until Discontinu ed, Routine [facility] spironolact one (ALDACTONE) tablet 12.5 mg 11-24 21:00: 00 Yes 12.5mg 12.5 mg, Oral, DAILY, First dose on Thu11/25/23 at 1600, Until Discontinu ed, Routine [facility] lisinopriL (PRINIVIL,Z ESTRIL) tablet 5 mg 11-24 21:00: 00 Yes 5mg 5 mg, Oral, DAILY, First dose on Thu11/25/23 at 1600, Until Discontinu ed, Routine [facility] apixaban (ELIQUIS) tablet 5 mg 11-24 16:30: 00 11-24 16:18 :00 No 5mg 5 mg, Oral, ONCE, 1 dose, On Thu11/25/23 at 1130, Routine, Indication s: DVT/PE [facility] apixaban (ELIQUIS) tablet 5 mg 11-24 14:00: 00 11-24 15:40 :42 No 5mg 5 mg, Oral, BID, 11 doses, First dose (after last modificati on) on Thu11/25/23 at 0900, Last dose on Thu11/30/23 at 0800, Routine, Indication s: DVT/PE [facility] divalproex ER (DEPAKOTE ER) 24 hr tablet 1,000 mg 11-24 13:00: 00 11-25 17:41 :19 No 1000mg 1,000 mg, Oral, Q12H, First dose (after last modificati on) on Thu11/25/23 at 0800, Until Discontinu ed, Routine [facility] ondansetron (ZOFRAN (PF)) injection 4 mg 11-24 03:45: 00 11-24 02:49 :00 No 4mg 4 mg, Slow IV Push, ONCE, On Thu11/24/23 at 2245, For 1 dose, Doses of ondansetro n 16 mg and above need to be administer ed via IV piggyback. For Dose >=24mg ECG monitoring is advisable. [facility] divalproex (DEPAKOTE) delayed release tablet 500 mg 11-24 03:45: 00 11-24 04:49 :00 No 500mg 500 mg, Oral, ONCE, 1 dose, On Thu11/24/23 at 2245, Routine [facility] nitroglycer in (NITROSTAT) sublingual tablet 0.4 mg 11-24 02:36: 01 Yes .4mg 0.4 mg, Sublingual , Q5MIN PRN, Starting on Thu11/24/23 at 2136, Until Discontinu ed, Routine, Chest pain [facility] nystatin (NILSTAT) 100,000 unit/mL suspension 500,000 Units 11-24 01:15: 00 11-26 20:18 :35 No 5mL 500,000 Units (5 mL), Oral, QID, First dose on Thu11/24/23 at 2014, Until Discontinu ed, Routine [facility] acetaminoph en-codeine (TYLENOL #3) 300-30 mg tablet 1 tablet 11-24 01:07: 37 Yes 1{tbl} 1 tablet, Oral, Q6HPRN, Starting on Thu11/24/23 at 2006, Until Discontinu ed, Routine, Pain (scale 4-6) [facility] iopamidol (ISOVUE 370-500 mL) injection 100 mL 11-23 23:15: 00 11-23 22:15 :00 No [id number] 100mL 100 mL, Intravenou s, ONCE, 1 dose, On Thu11/24/23 at 1815, Routine [facility] milrinone in 5 % dextrose (PRIMACOR) 20 mg/100 mL (200 mcg/mL) infusion RTU 11-23 20:45: 00 11-24 18:50 :54 No .25ug/k g/min 0.25 mcg/kg/min ?94.5 kg (7.0875 mL/hr, rounded to 7.09 mL/hr), IV Infusion, CONTINUOUS , Starting on Thu11/24/23 at 1545, 1. Dose to be adjusted by physician or provider. 2. Notify MD if MAP < 65 mmHG. [facility] polyethylen e glycol 3350 powder 17 g 11-23 19:15: 00 Yes 17g 17 g, Oral, DAILY, First dose on Thu11/24/23 at 1415, Until Discontinu ed, Routine [facility] ipratropium -albuteroL (DUONEB) 0.5 mg-3 mg(2.5 mg base)/3 mL nebulizer solution 3 mL 11-23 19:00: 00 Yes 3mL 3 mL, Inhalation , TID, First dose (after last modificati on) on Thu11/24/23 at 1400, Until Discontinu ed, Routine [facility] ondansetron (ZOFRAN (PF)) injection 4 mg 11-23 17:16: 00 11-23 17:24 :00 No 4mg 4 mg, Slow IV Push, ONCE, On Thu11/24/23 at 1230, For 1 dose, Doses of ondansetro n 16 mg and above need to be administer ed via IV piggyback. For Dose >=24mg ECG monitoring is advisable. [facility] apixaban (ELIQUIS) tablet 10 mg 11-23 15:45: 00 11-24 13:38 :20 No 10mg 10 mg, Oral, BID, 14 doses, First dose on Thu11/24/23 at 1045, Last dose on Thu11/30/23 at 2000, Routine, Indication s: DVT/PE [facility] milrinone in 5 % dextrose (PRIMACOR) 20 mg/100 mL (200 mcg/mL) infusion RTU 11-23 15:45: 00 11-23 20:33 :33 No .125ug/ kg/min 0.125 mcg/kg/min ?94.5 kg (3.5438 mL/hr, rounded to 3.54 mL/hr), IV Infusion, CONTINUOUS , Starting on Thu11/24/23 at 1045, 1. Dose to be adjusted by physician or provider. 2. Notify MD if MAP < 65 mmHG. [facility] HYDROcodone -acetaminop hen (NORCO 5) 5-325 mg tablet 1 tablet 11-23 14:28: 00 11-23 15:37 :00 No 1{tbl} 1 tablet, Oral, ONCE, 1 dose, On Thu11/24/23 at 0930, Routine [facility] hydrALAZINE (APRESOLINE ) tablet 10 mg 11-23 12:30: 00 11-25 13:28 :25 No 10mg 10 mg, Oral, Q8H, First dose on Thu11/24/23 at 0730, Until Discontinu ed, Routine [facility] iohexoL (OMNIPAQUE 180-20 mL) injection 11-22 20:31: 56 11-22 20:32 :10 No ONCE INTRA PROCEDURE, Starting on Thu11/23/23 at 1531, Until Thu11/23/23 at 1532, Routine, CV Intraproce dure [facility] nitroglycer in (TRIDIL) 2 mg in 10 mL D5W for Cardiac Cath 11-22 19:32: 38 11-22 20:32 :10 No ONCE INTRA PROCEDURE, Starting on Thu11/23/23 at 1432, Until Thu11/23/23 at 1532, Routine, CV Intraproce dure [facility] heparin 1,000 unit/mL injection 11-22 19:31: 28 11-22 20:32 :10 No ONCE INTRA PROCEDURE, Starting on Thu11/23/23 at 1431, Until Thu11/23/23 at 1532, Routine, CV Intraproce dure [facility] midazolam (VERSED) injection 11-22 19:24: 54 11-22 20:32 :10 No ONCE INTRA PROCEDURE, Starting on Thu11/23/23 at 1424, Until Thu11/23/23 at 1532, Routine, CV Intraproce dure [facility] FENTanyl PF (SUBLIMAZE (PF)) injection 11-22 19:21: 00 11-22 20:32 :10 No ONCE INTRA PROCEDURE, Starting on Thu11/23/23 at 1421, Until Thu11/23/23 at 1532, Routine, CV Intraproce dure [facility] lidocaine 1% (PF) (XYLOCAINE) injection 11-22 19:20: 00 11-22 20:32 :10 No ONCE INTRA PROCEDURE, Starting on Thu11/23/23 at 1420, Until Thu11/23/23 at 1532, Routine, CV Intraproce dure [facility] furosemide 20 mg tablet 11-22 15:47: 27 11-27 00:00 :00 No 20mg Take 1 tablet by mouth every morning and evening. [facility] milrinone in 5 % dextrose (PRIMACOR) 20 mg/100 mL (200 mcg/mL) infusion RTU 11-22 15:45: 00 11-23 15:32 :54 No .25ug/k g/min 0.25 mcg/kg/min ?94.5 kg (7.0875 mL/hr, rounded to 7.09 mL/hr), IV Infusion, CONTINUOUS , Starting on Thu11/23/23 at 1045, 1. Dose to be adjusted by physician or provider. 2. Notify MD if MAP < 65 mmHG. [facility] DULoxetine (CYMBALTA) capsule 30 mg 11-22 14:00: 00 11-27 00:00 :00 No 30mg 30 mg, Oral, DAILY, First dose on Thu11/23/23 at 0900, Until Discontinu ed, Routine [facility] magnesium oxide (MAG-OX 400) tablet 400 mg 11-22 13:45: 00 11-22 14:00 :00 No 400mg 400 mg, Oral, ONCE, 1 dose, On Thu11/23/23 at 0845, Routine [facility] hydrOXYzine (ATARAX) tablet 50 mg 11-22 13:42: 15 Yes 50mg 50 mg, Oral, Q8HPRN, Starting on Thu11/23/23 at 0842, Until Discontinu ed, Routine, Anxiety [facility] KCL (KLOR-CON M20) tablet 40 mEq 11-22 10:45: 00 11-22 10:20 :00 No 40meq 40 mEq, Oral, ONCE, 1 dose, On Thu11/23/23 at 0545, Routine [facility] mirtazapine (REMERON) tablet 15 mg 11-22 02:00: 00 Yes 15mg 15 mg, Oral, QHS, First dose on 11/22/23 at 2100, Until Discontinu ed, Routine [facility] atorvastati n (LIPITOR) tablet 40 mg 11-22 02:00: 00 11-25 16:05 :43 No 40mg 40 mg, Oral, QHS, First dose on Thu11/22/23 at 2100, Until Discontinu ed, Routine [facility] divalproex (DEPAKOTE) delayed release tablet 500 mg 11-22 01:00: 00 11-23 12:27 :34 No 500mg 500 mg, Oral, BID, First dose on Thu11/22/23 at 2000, Until Discontinu ed, Routine [facility] milrinone in 5 % dextrose (PRIMACOR) 20 mg/100 mL (200 mcg/mL) infusion RTU 11-21 19:30: 00 11-22 15:38 :58 No .125ug/ kg/min 0.125 mcg/kg/min ?94.5 kg (3.5438 mL/hr, rounded to 3.54 mL/hr), IV Infusion, CONTINUOUS , Starting on Thu11/22/23 at 1430, 1. Dose to be adjusted by physician or provider. 2. Notify MD if MAP < 65 mmHG. [facility] diazePAM (VALIUM) injection 2 mg 11-21 19:28: 00 11-21 20:15 :00 No 2mg 2 mg, Intravenou s, ONCE, 1 dose, On 11/22/23 at 1430, Routine [facility] gabapentin (NEURONTIN) capsule 100 mg 11-21 19:00: 00 Yes 100mg 100 mg, Oral, TID, First dose on 11/22/23 at 1400, Until Discontinu ed, Routine [facility] furosemide (LASIX) injection 40 mg 11-21 19:00: 00 11-24 18:54 :28 No 40mg 40 mg, Slow IV Push, TID, First dose on 11/22/23 at 1400, Until Discontinu ed, Routine [facility] ondansetron (ZOFRAN-ODT ) disintegrat ing tablet 4 mg 11-21 18:45: 00 11-21 18:25 :00 No 4mg 4 mg, Oral, ONCE, 1 dose, On 11/22/23 at 1345, [facility]ine [facility] perflutren lipid microsphere s (DEFINITY) injection 2 mL 11-21 16:45: 00 11-21 16:45 :00 No [id number] 2mL 2 mL, IV Push, ONCE, 1 dose, On 11/22/23 at 1145, Routine [facility] furosem[facility] (LASIX) injection 40 mg 11-21 14:15: 00 11-21 18:23 :20 No 40mg 40 mg, Slow IV Push, BID, 2 doses, First dose on 11/22/23 at 0915, Last dose on 11/22/23 at 2000, Routine [facility] losartan (COZAAR) tablet 25 mg 11-21 14:15: 00 11-21 20:14 :04 No 25mg 25 mg, Oral, DAILY, First dose on 11/22/23 at 0915, Until Discontinu ed, Routine [facility] tamsulosin (FLOMAX) capsule 0.4 mg 11-21 14:00: 00 Yes .4mg 0.4 mg, Oral, DAILY, First dose on 11/22/23 at 0900, Until Discontinu ed, Routine [facility] pantoprazol e (PROTONIX) EC tablet 40 mg 11-21 14:00: 00 Yes 40mg 40 mg, Oral, DAILY, First dose on 11/22/23 at 0900, Until Discontinu ed, Routine [facility] aspirin chewable tablet 81 mg 11-21 14:00: 00 Yes 81mg 81 mg, Oral, DAILY, First dose on 11/22/23 at 0900, Until Discontinu ed, Routine [facility] predniSONE (DELTASONE) tablet 40 mg 11-21 14:00: 00 11-25 13:14 :00 No 40mg 40 mg, Oral, DAILY, 5 doses, First dose on Thu11/22/23 at 0900, Last dose on Thu11/26/23 at 0900, Routine [facility] iopamidol (ISOVUE 370-500 mL) injection 80 mL 11-21 14:00: 00 11-21 14:00 :00 No [id number] 80mL 80 mL, Intravenou s, ONCE, 1 dose, On Thu11/22/23 at 0900, Routine [facility] Sliding Scale Insulin - Lispro (HumaLOG) 11-21 13:00: 00 Yes Subcutaneo us, TID MEALS+HS, First dose on Thu11/22/23 at 0800, Until Discontinu ed, Routine [facility] divalproex ER (DEPAKOTE ER) 24 hr tablet 500 mg 11-21 13:00: 00 11-24 02:43 :24 No 500mg 500 mg, Oral, Q12H, First dose on 11/22/23 at 0800, Until Discontinu ed, Routine [facility] ipratropium -albuteroL (DUONEB) 0.5 mg-3 mg(2.5 mg base)/3 mL nebulizer solution 3 mL 11-21 09:00: 00 11-23 15:56 :58 No 3mL 3 mL, Inhalation , Q4H, First dose on Thu11/22/23 at 0400, Until Discontinu ed, Routine [facility] furosemide (LASIX) injection 40 mg 11-21 07:45: 00 11-21 07:15 :00 No 40mg 40 mg, Slow IV Push, ONCE, 1 dose, On [place] 11/22/23 at 0245, Routine [facility] sodium chloride 7% (HYPER-IRVIN) nebulizer solution 4 mL 11-21 07:00: 00 11-23 14:32 :09 No 4mL 4 mL, Inhalation , DAILY, First dose on [place] 11/22/23 at 0200, Until Discontinu ed, Routine [facility] morpHINE (2 mg/mL) injection 2 mg 11-21 06:52: 11 Yes 2mg 2 mg, Slow IV Push, Q4HPRN, Starting on [place] 11/22/23 at 0152, Until Discontinu ed, Routine, Pain (scale 7-10) [facility] heparin 25,000 Units/250 mL (Premixed Bag) in [...] ant therapy. Range, Dosing and Testing: FOR [place], [facility], AND [facility] ONLY - aPTT < 35: Bolus [...] once therapeuti c levels are reached. FOR [facility] ONLY - aPTT [...] BOLUS OR INITIAL INFUSION RATE. [facility] heparin (1,000 unit/mL, 10 mL vial) for Rebolusing 11-21 06:43: 39 11-23 15:32 :54 No 3000U FOR REBOLUSING , Starting on 11/22/23 at 0143, Until Tu11/24/23 at 1032, Routine, Dosing based on aPPT testing parameters (refer to continuous heparin drip order). [facility] glucagon (GLUCAGEN DIAGNOSTIC KIT) injection 1 mg 11-21 06:36: 57 Yes 1mg [facility] dextrose 50 % in water (D50W) injection 25 mL 11-21 06:36: 57 Yes 25mL [facility] acetaminoph en (TYLENOL) tablet 650 mg 11-21 06:36: 44 Yes 650mg 650 mg, Oral, Q6HPRN, Starting on 11/22/23 at 0136, Until Discontinu ed, Routine, Pain (scale 1-3) [facility] ondansetron (ZOFRAN (PF)) injection 4 mg 11-21 04:45: 00 11-21 03:46 :00 No 4mg 4 mg, Slow IV Push, ONCE, 1 dose, On 11/21/23 at 2345, [facility] 975 mg 11-21 04:45: 00 11-21 03:44 :00 No 975mg 975 mg, Oral, ONCE, 1 dose, On 11/21/23 at 2345, [facility] HEPARIN SODIUM (PORCINE) 1,000 UNIT/ML BOLUS ACS ORDER SET 11-21 04:15: 00 11-21 04:33 :00 No 4000U 4,000 Units, IV Push, ONCE, 1 dose, On 11/21/23 at 2315, [facility] morpHINE (4 mg/mL) injection 4 mg 11-21 04:15: 00 11-21 04:27 :00 No 4mg 4 mg, Slow IV Push, ONCE, 1 dose, On 11/21/23 at 2315, STAT [facility] methylpredn isolone sod succ (SOLU-MEDRO L) injection 125 mg 11-21 04:15: 00 11-21 03:24 :00 No 125mg 125 mg, Slow IV Push, ONCE NOW, 1 dose, On 11/21/23 at 2315, [facility] heparin 25,000 Units/250 mL (Premixed [...] ant therapy. Range, Dosing and Testing: FOR [place], [facility], AND [facility] ONLY - aPTT < 35: Bolus [...] once therapeuti c levels are reached. FOR [facility] ONLY - aPTT < 40: Bolus 5000 [...] ADJUST INITIAL BOLUS OR INITIAL INFUSION RATE. [facility] ipratropium -albuteroL (DUONEB) 0.5 mg-3 mg(2.5 mg base)/3 mL nebulizer solution 3 mL 11-21 04:00: 00 11-21 02:51 :00 No 3mL 3 mL, Inhalation , ONCE, 1 dose, On 11/21/23 at 2300, [facility] ipratropium -albuteroL (DUONEB) 0.5 mg-3 mg(2.5 mg base)/3 mL nebulizer solution 3 mL 11-21 03:30: 00 11-21 02:37 :00 No 3mL 3 mL, Inhalation , ONCE, 1 dose, On 11/21/23 at 2230, [facility] NaCl 0.9% (NS) bolus infusion 500 mL 11-21 03:15: 00 11-21 04:14 :00 No 500mL at 999 mL/hr, 500 mL, IV Infusion, ONCE, 1 dose, On 11/21/23 at 2215, STAT [facility] mirtazapine 15 mg tablet 09-30 00:00: 00 Yes 15mg Take 1 tablet by mouth at bedtime. [facility] Metformin HCl 500 MG oral Tablet 09-29 14:28: 11 Yes 500mg Take 1 tablet (500 mg total) by mouth daily (with breakfast) . [facility] Ibuprofen (MOTRIN) 200 MG oral Tablet 09-29 14:27: 32 09-29 00:00 :00 No 200mg Q.[id number] 3D Take 1 tablet (200 mg total) by mouth every 8 hours as needed for pain. [facility] Fluticasone -Umeclidin- Vilant (Trelegy Ellipta) 100-62.5-25 MCG/ACT inhalation AEROSOL POWDER, BREATH ACTIVATED 09-29 00:00: 00 Yes [id number] 1{puff} Inhale 1 puff into the lungs daily. [facility] Carvedilol 12.5 MG oral Tablet 09-29 00:00: 00 Yes [id number] 12.5mg Take 1 tablet (12.5 mg total) by mouth in the morning and 1 tablet (12.5 mg total) in the evening. Take with meals. [facility] Duloxetine HCl [address] Particles 09-29 00:00: 00 Yes [id number] 20mg Take 1 capsule (20 mg total) by mouth daily. [facility] Acetaminoph en-Codeine (TYLENOL/CO DEINE #3) 300-30 MG oral Tablet 09-29 00:00: 00 Yes [id number] 1{tbl} Q.25D Take 1 tablet by mouth every 6 hours as needed for pain. [facility] Clonazepam 1 MG oral Tablet 09-29 00:00: 00 Yes [id number] 1mg QD Take 1 tablet (1 mg total) by mouth nightly as needed for anxiety. [facility] spironolact one 25 mg tablet 09-29 00:00: 00 11-27 00:00 :00 No 25mg Take 1 tablet by mouth in the morning and 1 tablet in the evening. [facility] metFORMIN 500 mg tablet 09-28 00:00: 00 12-14 00:00 :00 No 500mg Take 1 tablet by mouth in the morning. [facility] Carvedilol 12.5 MG oral [...] MG oral Tablet 09-11 00:00: 00 Yes [id number] 15mg QD Take 1 tablet (15 mg total) by mouth nightly as needed. [facility] Acetaminoph en-Codeine (TYLENOL/CO DEINE #3) 300-30 MG oral Tablet 09-11 00:00: 00 09-29 00:00 :00 No [id number] 1{tbl} Q.25D Take 1 tablet by mouth every 6 hours as needed for pain. [facility] DULoxetine (CYMBALTA) 60 MG capsule 09-09 00:00: 00 10-08 23:59 :00 No 60mg QD Take 1 capsule (60 mg total) by mouth daily for 30 days. [facility] varenicline (CHANTIX) 1 mg tablet 09-08 10:51: 03 Yes 1mg Q.5D Take 1 tablet (1 mg total) by mouth 2 (two) times daily Give with meals and with a full glass of water.. [facility] atorvastati n (LIPITOR) 20 MG tablet 09-08 10:51: 03 Yes 20mg QD Take 1 tablet (20 mg total) by mouth daily. [facility] Cyanocobala min (Vitamin B-12) 1000 MCG oral Tablet 09-08 00:00: 00 10-08 04:59 :00 No 1000ug Take 1 tablet (1,000 mcg total) by mouth daily. [facility] lidocaine (LIDODERM) 4 % patch 09-08 00:00: 00 10-07 23:59 :00 No 3{patch } Q24H Place 3 patches onto the skin daily for 30 days. [facility] metoprolol succinate (TOPROL-XL) 25 MG 24 hr tablet 09-07 16:47: 05 09-07 00:00 :00 No 25mg QD Take 1 tablet (25 mg total) by mouth daily. [facility] albuterol HFA (VENTOLIN HFA) 90 mcg/actuati on inhaler 09-07 16:47: 05 09-07 00:00 :00 No 1{puff} Inhale 1 puff by mouth via inhaler every 6 (six) hours as needed for Wheezing. [facility] fluticasone -umeclidin- vilanter (Trelegy Ellipta) 200-62.5-25 mcg DsDv - 16:47: 05 09-07 00:00 :00 No QD Inhale by mouth via inhaler daily. [facility] Albuterol HFA 108 (90 Base) MCG/ACT IN AERS - 00:00: 00 10-07 04:59 :00 No 1{puff} [...] total) by mouth daily for 30 days. [facility] polyethylen e glycol (GLYCOLAX) 17 gram packet 09-07 00:00: 00 10-06 23:59 :00 No 17g Q.5D Take 17 g by mouth 2 (two) times daily for 30 days. [facility] gabapentin (NEURONTIN) 400 MG capsule 09-07 00:00: 00 10-06 23:59 :00 No 400mg Q.[id number] 3D Take 1 capsule (400 mg total) by mouth 3 (three) times daily for 30 days. [facility] furosemide (LASIX) 20 MG tablet - 00:00: 00 10-06 23:59 :00 No 20mg QD Take 1 tablet (20 mg total) by mouth daily for 30 days. [facility] fluticasone -umeclidin- vilanter (Trelegy Ellipta) 200-62.5-25 mcg DsDv 09-07 00:00: 00 10-06 23:59 :00 No 1{inhal ation} QD Inhale 1 Inhalation by mouth via inhaler daily for 30 days. [facility] metoprolol succinate (TOPROL-XL) 25 MG 24 hr tablet 09-07 00:00: 00 10-06 23:59 :00 No 25mg QD Take 1 tablet (25 mg total) by mouth daily for 30 days. [facility] lacosamide (VIMPAT) 100 mg in NaCl 0.9% (NS) 50 mL piggyback 08-12 21:15: 00 08-12 21:23 :00 No 100mg 100 mg, IV Piggyback, ONCE, 1 dose, On Thu08/12/23 at 1515, Administer over 30 Minutes, 50 mL
Facu lty member approving Restricted medication : MJ BRYAN shawn [facility] Dicyclomine HCl 20 MG oral Tablet 08-06 [...] total) by mouth daily for 5 days. [facility] varenicline (CHANTIX) 1 mg tablet 2022-07 19:45: 32 Yes 1mg Q.5D Take 1 tablet (1 mg total) by mouth 2 (two) times daily Give with meals and with a full glass of water.. [facility] atorvastati n (LIPITOR) 20 MG tablet 2022-07 19:45: 32 Yes 20mg QD Take 1 tablet (20 mg total) by mouth daily. [facility] metoprolol succinate (TOPROL-XL) 25 MG 24 hr tablet 2022-07 19:45: 32 09-07 00:00 :00 No 25mg QD Take 1 tablet (25 mg total) by mouth daily. [facility] albuterol HFA (VENTOLIN HFA) 90 mcg/actuati on inhaler 2022-07 19:45: 32 09-07 00:00 :00 No 1{puff} Inhale 1 puff by mouth via inhaler every 6 (six) hours as needed for Wheezing. [facility] fluticasone -umeclidin- vilanter (Trelegy Ellipta) 200-62.5-25 mcg DsDv 2022-07 19:45: 32 09-07 00:00 :00 No QD Inhale by mouth via inhaler daily. [facility] acetaminoph en-codeine (TYLENOL #3) 300-30 mg per tablet 2022-07 18:02: 00 06-16 00:00 :00 No 1{tbl} Take 1 tablet by mouth every 4 (four) hours as needed for Pain. [facility] DULoxetine (CYMBALTA) 30 MG capsule 2022-07 00:00: 00 09-08 00:00 :00 No 30mg QD Take 1 capsule (30 mg total) by mouth daily for 90 days. [facility] metroNIDAZO LE (FLAGYL) 500 MG tablet 2022-07 00:00: 00 07-04 23:59 :00 No 500mg Take 1 tablet (500 mg total) by mouth every 8 (eight) hours for 18 days. [facility] ciprofloxac in HCl (CIPRO) 500 MG tablet 2022-07 00:00: 00 07-04 23:59 :00 No 500mg Q.5D Take 1 tablet (500 mg total) by mouth 2 (two) times daily for 18 days. [facility] cyclobenzap rine (FLEXERIL) 10 MG tablet 2022-07 00:00: 00 06-26 23:59 :00 No 10mg Q.[id number] 3D Take 1 tablet (10 mg total) by mouth 3 (three) times daily for 10 days. [facility] oxyCODONE (OXY-IR) 10 mg tablet 2022-07 00:00: 00 06-26 23:59 :00 No 10mg Take 1 tablet (10 mg total) by mouth every 8 (eight) hours as needed for up to 10 days. Max Daily Amount: 30 mg [facility] nystatin (MYCOSTATIN ) 100,000 unit/mL suspension 2022-07 00:00: 00 06-21 23:59 :00 No [id number] Q.25D Take 5 mLs (500,000 Units total) by mouth 4 (four) times daily for 5 days. [facility] dexAMETHaso ne (DECADRON) 2 MG tablet 2022-07 00:00: 00 06-08 23:59 :00 No 1mg Take 0.5 tablets (1 mg total) by mouth 2 (two) times daily with breakfast and dinner for 2 days. [facility] metoprolol succinate (TOPROL-XL) 25 MG 24 hr tablet 2022-07 17:44: 21 Yes 25mg QD Take 1 tablet (25 mg total) by mouth daily. [facility] varenicline (CHANTIX) 1 mg tablet 2022-07 17:44: 21 Yes 1mg Q.5D Take 1 tablet (1 mg total) by mouth 2 (two) times daily Give with meals and with a full glass of water.. [facility] albuterol HFA (VENTOLIN HFA) 90 mcg/actuati on inhaler 2022-07 17:44: 21 Yes 1{puff} Inhale 1 puff by mouth via inhaler every 6 (six) hours as needed for Wheezing. [facility] fluticasone -umeclidin- vilanter (Trelegy Ellipta) 200-62.5-25 mcg DsDv 2022-07 17:44: 21 Yes QD Inhale by mouth via inhaler daily. [facility] atorvastati n (LIPITOR) 20 MG tablet 2022-07 17:44: 21 Yes 20mg QD Take 1 tablet (20 mg total) by mouth daily. [facility] acetaminoph en-codeine (TYLENOL #3) 300-30 mg per tablet 2022-07 17:44: 21 Yes 1{tbl} Take 1 tablet by mouth every 4 (four) hours as needed for Pain. [facility] Naloxone (NARCAN) 4 MG/0.1ML nasal Liquid 2022-07 00:00: 00 Yes 4mg 0.1 mL (4 mg total) as needed. [facility] gonzalez senna (SENOKOT) 8.6 mg tablet 2022-07 00:00: 00 06-18 23:59 :00 No 17.2mg Q.5D Take 2 tablets (17.2 mg total) by mouth 2 (two) times daily for 14 days. [facility] cyclobenzap rine (FLEXERIL) 10 MG tablet 2022-07 00:00: 00 06-16 00:00 :00 No 10mg Q.[id number] 3D Take 1 tablet (10 mg total) by mouth 3 (three) times daily for 10 days. [facility] methocarbam oL (ROBAXIN) 500 MG tablet 2022-07 00:00: 00 06-16 00:00 :00 No 500mg Q.25D Take 1 tablet (500 mg total) by mouth 4 (four) times daily for 10 days. [facility] lactulose (CHRONULAC) 20 gram/30 mL solution 2022-07 00:00: 00 06-11 23:59 :00 No 20g Q.[id number] 3D Take 30 mLs (20 g total) by mouth 3 (three) times daily for 7 days. [facility] ondansetron (ZOFRAN-ODT ) 4 MG disintegrat ing tablet 2022-07 00:00: 00 06-11 23:59 :00 No 4mg Take 1 tablet (4 mg total) by mouth every 6 (six) hours as needed for up to 7 days. [facility] metoprolol succinate (TOPROL-XL) 25 MG 24 hr tablet 2022-07 15:23: 22 Yes 25mg QD Take 1 tablet (25 mg total) by mouth daily. [facility] varenicline (CHANTIX) 1 mg tablet 2022-07 15:23: 22 Yes 1mg Q.5D Take 1 tablet (1 mg total) by mouth 2 (two) times daily Give with meals and with a full glass of water.. [facility] albuterol HFA (VENTOLIN HFA) 90 mcg/actuati on inhaler 2022-07 15:23: 22 Yes 1{puff} Inhale 1 puff by mouth via inhaler every 6 (six) hours as needed for Wheezing. [facility] fluticasone -umeclidin- vilanter (Trelegy Ellipta) 200-62.5-25 mcg DsDv 2022-07 15:23: 22 Yes QD Inhale by mouth via inhaler daily. [facility] atorvastati n (LIPITOR) 20 MG tablet 2022-07 15:23: 22 Yes 20mg QD Take 1 tablet (20 mg total) by mouth daily. [facility] acetaminoph en-codeine (TYLENOL #3) 300-30 mg per tablet 2022-07 15:23: 22 Yes 1{tbl} Take 1 tablet by mouth every 4 (four) hours as needed for Pain. [facility] acetaminoph en-codeine (TYLENOL #3) 300-30 mg per tablet 2022-07 09:42: 02 Yes 1{tbl} Take 1 tablet by mouth every 4 (four) hours as needed for Pain. Max Daily Amount: 6 tablets [facility] varenicline (CHANTIX) 1 mg tablet 2022-07 09:40: 04 Yes 1mg Q.5D Take 1 tablet (1 mg total) by mouth 2 (two) times daily Give with meals and with a full glass of water.. [facility] albuterol HFA (VENTOLIN HFA) 90 mcg/actuati on inhaler 2022-07 09:40: 04 Yes 1{puff} Inhale 1 puff by mouth via inhaler every 6 (six) hours as needed for Wheezing. [facility] fluticasone -umeclidin- vilanter (Trelegy Ellipta) 200-62.5-25 mcg DsDv 2022-07 09:40: 04 Yes QD Inhale by mouth via inhaler daily. [facility] atorvastati n (LIPITOR) 20 MG tablet 2022-07 09:40: 04 Yes 20mg QD Take 1 tablet (20 mg total) by mouth daily. [facility] metoprolol succinate (TOPROL-XL) 25 MG 24 hr tablet 2022-07 09:13: 28 Yes 25mg QD Take 1 tablet (25 mg total) by mouth daily. [facility] Atorvastati n Calcium 20 MG oral Tablet 2022-07 00:00: 00 Yes 20mg Take 1 tablet (20 mg total) by mouth daily. Cynthia gonzalez metoprolol succinate XL 25 mg 24 hr tablet 2022-07 00:00: 00 11-27 00:00 :00 No 25mg Take 1 tablet by mouth every morning. [facility] Nitroglycer in 0.4 MG sublingual SL Tab [...] inhalation AEROSOL POWDER, BREATH ACTIVATED 2022-07 00:00: 09-29 00:00 :00 No 1{puff} 1 puff [...] tablet (20 mg total) by mouth daily. [facility] aspirin 81 MG EC tablet 04-03 00:00: 00 07-02 23:59 :00 No 81mg QD Take 1 tablet (81 mg total) by mouth daily for 90 days. [facility] divalproex (DEPAKOTE) 500 MG EC tablet 04-03 00:00: 00 07-02 23:59 :00 No 500mg Q.5D Take 1 tablet (500 mg total) by mouth 2 (two) times daily for 90 days. [facility] lisinopriL (PRINIVIL,Z ESTRIL) 5 MG tablet 04-03 00:00: 00 05-28 00:00 :00 No 5mg QD Take 1 tablet (5 mg total) by mouth daily. [facility] clonazePAM (KlonoPIN) 0.5 MG tablet 04-03 00:00: 00 05-03 23:59 :00 No .25mg Take 0.5 tablets (0.25 mg total) by mouth 2 (two) times daily as needed for Anxiety for up to 30 days. Max Daily Amount: 0.5 mg [facility] HYDROcodone -acetaminop hen (NORCO 10-325) 10-325 mg per tablet 04-03 00:00: 00 04-13 23:59 :00 No 1{tbl} Take 1 tablet by mouth every 6 (six) hours as needed for up to 10 days. Max Daily Amount: 4 tablets [facility] methocarbam oL (ROBAXIN) 500 MG tablet 04-03 00:00: 00 04-13 23:59 :00 No 500mg Q.25D Take 1 tablet (500 mg total) by mouth 4 (four) times daily for 10 days. [facility] gabapentin (NEURONTIN) 300 MG capsule 04-02 00:00: 00 04-03 00:00 :00 No 300mg [id number] 3D Take 1 capsule (300 mg total) by mouth 3 (three) times daily for 90 days. [facility] divalproex (DEPAKOTE) 500 MG EC tablet 04-02 00:00: 00 04-03 00:00 :00 No 500mg Q.5D Take 1 tablet (500 mg total) by mouth 2 (two) times daily for 90 days. [facility] clonazePAM (KlonoPIN) 0.5 MG tablet 04-02 00:00: 00 04-03 00:00 :00 No .25mg Take 0.5 tablets (0.25 mg total) by mouth 2 (two) times daily as needed for Anxiety for up to 30 days. Max Daily Amount: 0.5 mg [facility] HYDROcodone -acetaminop hen (NORCO 10-325) 10-325 mg per tablet 04-02 00:00: 00 04-03 00:00 :00 No 1{tbl} Take 1 tablet by mouth every 6 (six) hours as needed for up to 10 days. Max Daily Amount: 4 tablets [facility] methocarbam oL (ROBAXIN) 500 MG tablet 04-02 00:00: 00 04-03 00:00 :00 No 500mg Q.25D Take 1 tablet (500 mg total) by mouth 4 (four) times daily for 10 days. [facility] Metronidazo le 500 MG oral Tablet - 00:00: 00 Yes Cynthia Garcia - Nadir [...] morning and 1 tablet in the evening. [facility] Divalproex Sodium 500 MG [...] member approving Restricted medication : Alfonso ALVARADO [facility] ketorolac (TORADOL) injection 15 mg 12-11 18:15: 00 12-11 17:25 :00 No 15mg 15 mg, Slow IV Push, ONCE, 1 dose, On Arpita 12/11/22 at 1315, MICHAEL [facility] iopamidol (ISOVUE 370-500 mL) injection 80 mL 12-11 16:30: 00 12-11 16:27 :00 No [id number] 80mL 80 mL, Intravenou s, ONCE, 1 dose, On Arpita 12/11/22 at 1130, Routine [facility] nitroglycer in (NITROL) 2 % ointment 0.5 Inch 12-11 15:30: 00 12-11 14:31 :00 No .5[in_u s] 0.5 Inch, Transderma l (Apply To Skin), ONCE, 1 dose, On Thu12/11/22 at 1030, [facility] aspirin chewable tablet 324 mg 12-11 15:30: 00 12-11 14:30 :00 No 324mg 324 mg, Oral, ONCE, 1 dose, On Thu12/11/22 at 1030, Routine [facility] ondansetron (ZOFRAN (PF)) injection 4 mg 12-11 15:30: 00 12-11 14:29 :00 No 4mg 4 mg, Slow IV Push, ONCE, 1 dose, On Thu12/11/22 at 1030, [facility] LORazepam (ATIVAN) injection 1 mg 12-11 15:00: 00 12-11 14:57 :00 No 1mg 1 mg, Slow IV Push, ONCE, 1 dose, On Thu12/11/22 at 1000, STAT [facility] Lacosamide (VIMPAT) 100 mg tablet 12-11 00:00: 00 Yes [id number] 100mg Take 1 tablet by mouth in the morning and 1 tablet in the evening. [facility] acetaminoph en-codeine (TYLENOL #3) 300-30 mg tablet 1 tablet 11-18 05:30: 00 11-18 05:30 :00 No 1{tbl} 1 tablet, Oral, ONCE, 1 dose, On Thu11/18/22 at 0030, [facility] methocarbam oL (ROBAXIN) tablet 1,000 mg 11-18 05:30: 00 11-18 05:30 :00 No 1000mg 1,000 mg, Oral, ONCE, 1 dose, On Thu11/18/22 at 0030, [facility] ondansetron (ZOFRAN (PF)) injection 4 mg 11-18 04:45: 00 11-18 03:38 :00 No 4mg 4 mg, Slow IV Push, ONCE, 1 dose, On Thu11/17/22 at 2345, [facility] morpHINE (4 mg/mL) injection 4 mg 11-18 03:45: 00 11-18 03:38 :00 No 4mg 4 mg, Slow IV Push, ONCE, 1 dose, On Thu11/17/22 at 2245, Routine [facility] methocarbam oL (ROBAXIN) injection 1,000 mg 11-18 00:30: 00 11-17 23:47 :00 No 1000mg 1,000 mg, Intravenou s, ONCE, 1 dose, On Thu11/17/22 at 1930, [facility] methocarbam oL 500 mg tablet 11-18 00:00: 00 12-02 00:00 :00 No [id number] 1000mg Take 2 tablets by mouth 4 (four) times daily as needed for Pain (scale 7-10). [facility] acetaminoph en-codeine 300-60 mg tablet 11-18 00:00: 00 11-26 04:59 :00 No [id number] 1{tbl} Take 1 tablet by mouth every 6 (six) hours as needed for Pain for up to 7 days. Indication s: acute pain [facility] ketorolac (TORADOL) injection 15 mg 11-18 00:00: 00 11-17 23:08 :00 No 15mg 15 mg, Slow IV Push, ONCE, 1 dose, On Thu11/17/22 at 1900, Routine [facility] morpHINE (4 mg/mL) injection 4 mg 11-17 23:45: 00 11-17 23:49 :00 No 4mg 4 mg, Slow IV Push, ONCE, 1 dose, On Thu11/17/22 at 1845, Routine [facility] ondansetron (ZOFRAN (PF)) injection 4 mg 11-17 23:15: 00 11-17 23:06 :00 No 4mg 4 mg, Slow IV Push, ONCE, 1 dose, On Thu11/17/22 at 1815, [facility] lisinopriL (PRINIVIL,Z ESTRIL) tablet 10 mg 08-02 15:00: 00 Yes 10mg 10 mg, Oral, DAILY, First dose on Thu08/02/22 at 0900, Until Discontinu ed, Routine [facility] predniSONE (DELTASONE) tablet 40 mg 08-02 15:00: 00 08-07 14:59 :00 No 40mg 40 mg, Oral, DAILY, 5 doses, First dose on Thu08/02/22 at 0900, Last dose on Thu08/06/22 at 0900, [facility] mor[facility] (2 mg/mL) injection 2 mg 08-02 03:29: 15 Yes 2mg 2 mg, Slow IV Push, Q4HPRN, Starting on Thu08/01/22 at 2129, Until Discontinu ed, Routine, Pain (scale 7-10) [facility] levETIRAcet am (KEPPRA) in NACL (ISO-OS) 1,000 mg/100 mL RTU 08-02 00:00: 00 Yes 1000mg 1,000 mg, IV Piggyback, Q12H, First dose on Thu08/01/22 at 1800, Until Discontinu ed, Administer over 15 Minutes, 100 mL [facility] MULTIVITAMI N ORAL 08-01 23:49: 34 Yes 1{tbl} Take 1 Tab by mouth daily. [facility] omega-3 fatty acids-vitam in E (FISH OIL) 1,000 mg capsule 08-01 23:49: 34 Yes 1g Take 1 g by mouth daily. [facility] loratadine (CLARITIN LIQUI-GEL) 10 mg capsule 08-01 23:49: 34 Yes Take by mouth daily. [facility] ondansetron 4 mg tablet 08-01 23:49: 34 Yes 4mg Take 1 tablet by mouth every 8 (eight) hours as needed for Nausea and Vomiting (N/V). [facility] omega-3 fatty acids-vitam in E (FISH OIL) 1,000 mg capsule 08-01 23:49: 34 Yes 1g Take 1 g by mouth daily. [facility] pantoprazol e 40 mg EC tablet 08-01 23:49: 34 11-27 00:00 :00 No 40mg Take 40 mg by mouth daily. [facility] benzonatate (TESSALON PERLES) capsule 100 mg 08-01 20:00: 00 Yes 100mg 100 mg, Oral, Q8H, First dose on Thu08/01/22 at 1400, Until Discontinu ed, Routine [facility] ipratropium -albuteroL (DUONEB) 0.5 mg-3 mg(2.5 mg base)/3 mL nebulizer solution 3 mL 08-01 18:00: 00 Yes 3mL 3 mL, Inhalation , QID, First dose on Thu08/01/22 at 1200, Until Discontinu ed, Routine [facility] ipratropium -albuteroL (DUONEB) 0.5 mg-3 mg(2.5 mg base)/3 mL nebulizer solution 3 mL 08-01 17:07: 07 Yes 3mL 3 mL, Inhalation , QIDPRN, Starting on Thu08/01/22 at 1107, Until Discontinu ed, MICHAEL, Wheezing, Shortness of Breath [facility] sulfur hexafluorid e microsphr (LUMASON) injection 5 mL 08-01 17:00: 00 08-01 17:00 :00 No [id number] 5mL 5 mL, Intravenou s, ONCE, 1 dose, On Thu08/01/22 at 1100, Routine
food service team member approving Restricted medication : KYLEE MONTEZ [facility] pantoprazol e (PROTONIX) EC tablet 40 mg 08-01 15:00: 00 Yes 40mg 40 mg, Oral, DAILY, First dose on Thu08/01/22 at 0900, Until Discontinu ed, Routine [facility] aspirin chewable tablet 81 mg 08-01 15:00: 00 Yes 81mg 81 mg, Oral, DAILY, First dose on Thu08/01/22 at 0900, Until Discontinu ed, Routine [facility] amLODIPine (NORVASC) tablet 10 mg 08-01 15:00: 00 Yes 10mg 10 mg, Oral, DAILY, First dose on Thu08/01/22 at 0900, Until Discontinu ed, Routine [facility] levETIRAcet am (KEPPRA) tablet 500 mg 08-01 14:00: 00 08-01 23:56 :35 No 500mg 500 mg, Oral, BID, First dose on Thu08/01/22 at 0800, Until Discontinu ed, Routine [facility] carvediloL (COREG) tablet 6.25 mg 08-01 14:00: 00 08-01 17:29 :13 No 6.25mg 6.25 mg, Oral, BID MEALS, First dose on Thu08/01/22 at 0800, Until Discontinu ed, [facility]ine [facility] levETIRAcet am (KEPPRA) in NACL (ISO-OS) 1,000 mg/100 mL RTU 08-01 06:45: 00 08-01 06:32 :00 No 1000mg 1,000 mg, IV Piggyback, ONCE, 1 dose, On Thu08/01/22 at 0045, Administer over 15 Minutes, 100 mL [facility] LORazepam (ATIVAN) injection 1 mg 08-01 05:52: 54 Yes 1mg 1 mg, Slow IV Push, Q4HPRN, Starting on Thu07/31/22 at 2352, Until Discontinu ed, Routine, Seizures, Agitation, Anxiety, ETOH / Cocaine Withdrawl [facility] foLIC acid (FOLATE) tablet 1 mg 08-01 05:45: 00 Yes 1mg 1 mg, Oral, DAILY, First dose on Thu07/31/22 at 2345, Until Discontinu ed, Routine [facility] thiamine (VITAMIN B1) tablet 100 mg 08-01 05:45: 00 Yes 100mg 100 mg, Oral, DAILY, First dose on Thu07/31/22 at 2345, Until Discontinu ed, [facility]ine [facility] LORazepam (ATIVAN) injection 0.5 mg 08-01 05:30: 00 08-01 05:29 :00 No .5mg 0.5 mg, Slow IV Push, ONCE, 1 dose, On Thu07/31/22 at 2330, MICHAEL [facility] atorvastati n (LIPITOR) tablet 40 mg 08-01 03:00: 00 Yes 40mg 40 mg, Oral, QHS, First dose on Thu07/31/22 at 2100, Until Discontinu ed, Routine [facility] diphenhydrA MINE (BENADRYL) tablet 25 mg 08-01 00:32: 02 Yes 25mg 25 mg, Oral, Q6HPRN, Starting on Thu07/31/22 at 1832, Until Discontinu ed, Routine, Itching [facility] enoxaparin (LOVENOX) injection 40 mg 07-31 23:00: 00 Yes 40mg 40 mg, Subcutaneo us, DAILY, First dose on Thu07/31/22 at 1700, Until Discontinu ed, Routine [facility] morpHINE (2 mg/mL) injection 2 mg 07-31 23:00: 00 07-31 22:29 :00 No 2mg 2 mg, Slow IV Push, ONCE, 1 dose, On Thu07/31/22 at 1700, Routine [facility] HYDROcodone -acetaminop hen (NORCO) 10-325 mg tablet 1 tablet 07-31 22:01: 36 Yes 1{tbl} 1 tablet, Oral, Q6HPRN, Starting on Thu07/31/22 at 1601, Until Discontinu ed, Routine, Pain (scale 7-10) [facility] HYDROcodone -acetaminop hen (NORCO 5) 5-325 mg tablet 1 tablet 07-31 22:01: 34 08-02 22:00 :34 No 1{tbl} 1 tablet, Oral, Q6HPRN, Starting on Thu07/31/22 at 1601, Until Thu08/02/22 at 1600, Routine, Pain (scale 4-6) [facility] acetaminoph en (TYLENOL) tablet 650 mg 07-31 22:01: 33 Yes 650mg 650 mg, Oral, Q6HPRN, Starting on Arpita 07/31/22 at 1601, Until Discontinu ed, Routine, Pain (scale 1-3) [facility] ketorolac (TORADOL) injection 15 mg 07-31 21:45: 00 07-31 20:50 :00 No 15mg 15 mg, Slow IV Push, ONCE, 1 dose, On Arpita 07/31/22 at 1545, Routine [facility] ondansetron (ZOFRAN (PF)) injection 4 mg 07-31 21:00: 00 07-31 20:47 :00 No 4mg 4 mg, Slow IV Push, ONCE, 1 dose, On Arpita 07/31/22 at 1500, MICHAEL [facility] furosemide (LASIX) injection 40 mg 07-31 20:15: 00 Yes 40mg 40 mg, Slow IV Push, Q12H, First dose on Arpita 07/31/22 at 1415, Until Discontinu ed, Routine [facility] methylpredn isolone sod succ (SOLU-MEDRO L) injection 125 mg 07-31 19:30: 00 07-31 18:54 :00 No 125mg 125 mg, Slow IV Push, ONCE NOW, 1 dose, On Arpita 07/31/22 at 1330, MICHAEL [facility] ipratropium -albuteroL (DUONEB) 0.5 mg-3 mg(2.5 mg base)/3 mL nebulizer solution 3 mL 07-31 19:30: 00 07-31 18:48 :00 No 3mL 3 mL, Inhalation , ONCE, 1 dose, On Arpita 07/31/22 at 1330, MICHAEL [facility] pantoprazol e 40 mg EC tablet 07-31 17:15: 40 Yes 40mg Take 40 mg by mouth daily. [facility] MULTIVITAMI N ORAL 07-31 15:50: 57 Yes 1{tbl} Take 1 Tab by mouth daily. [facility] loratadine (CLARITIN LIQUI-GEL) 10 mg capsule 07-31 15:50: 57 Yes Take by mouth daily. [facility] ondansetron 4 mg tablet 07-31 15:50: 57 Yes 4mg Take 4 mg by mouth every 8 (eight) hours as needed. [facility] omega-3 fatty acids-vitam in E (FISH OIL) 1,000 mg capsule 07-31 15:21: 27 Yes 1g Take 1 g by mouth daily. [facility] TAKE ONE (1) TABLET(S) BY MOUTH THREE TIMES A DAY NEEDED. 07-28 00:00: 00 No Methylpredn isolone 4 mg tablet 2021-07 00:00: 00 05-12 04:59 :00 No [id number] 4mg Take 1 tablet through enteral tube in the morning for 1 dose. [facility] Methylpredn isolone 4 mg tablet 2021-07 00:00: 00 05-11 04:59 :00 No [id number] 4mg Take 1 tablet through enteral tube every 12 (twelve) hours for 2 doses. [facility] MULTIVITAMI N ORAL 2021-07 14:44: 48 Yes 1{tbl} Take 1 Tab by mouth daily. [facility] omega-3 fatty acids-vitam in E (FISH OIL) 1,000 mg capsule 2021-07 14:44: 48 Yes 1g Take 1 g by mouth daily. [facility] loratadine (CLARITIN LIQUI-GEL) 10 mg capsule 2021-07 14:44: 48 Yes Take by mouth daily. [facility] ondansetron (ZOFRAN) 4 mg tablet 2021-07 14:44: 48 Yes 4mg Take 4 mg by mouth every 8 (eight) hours as needed. [facility] pantoprazol e (PROTONIX) 40 mg EC tablet 2021-07 14:44: 48 Yes 40mg Take 40 mg by mouth daily. [facility] DULoxetine 30 mg capsule 2021-07 14:00: 00 Yes 30mg Take 1 capsule by mouth in the morning. [facility] divalproex (DEPAKOTE) EC tablet [...] Last dose on Thu05/08/22 at 2000, Routine [facility] acetaminoph en-codeine (TYLENOL #3) 300-30 mg tablet 1 tablet 2021-07 04:07: 01 Yes 1{tbl} 1 tablet, Oral, Q4HPRN, Starting on Thu05/07/22 at 2307, Until Discontinu ed, Routine, Pain (scale 7-10) [facility] morpHINE (2 mg/mL) injection 2 mg 2021-07 03:03: 15 Yes 2mg 2 mg, Slow IV Push, Q4HPRN, Starting on Thu05/07/22 at 2203, Until Discontinu ed, Routine, Pain (scale 7-10) [facility] LORazepam (ATIVAN) tablet 1 mg 2021-07 00:02: 18 Yes 1mg 1 mg, Oral, Q6HPRN, Starting on Thu05/07/22 at 1902, Until Discontinu ed, Routine, Anxiety [facility] cyclobenzap rine 5 mg tablet 2021-07 00:00: 00 Yes [id number] 5mg Take 1 tablet by mouth in the morning and 1 tablet at noon and 1 tablet in the evening. [facility] DULoxetine (CYMBALTA) 30 mg capsule 2021-07 00:00: 00 06-08 05:59 :00 No [id number] 60mg Take 2 capsules by mouth in the morning for 30 days. [facility] divalproex (DEPAKOTE) 250 mg EC tablet 2021-07 00:00: 00 06-08 05:59 :00 No [id number] 750mg Take 3 tablets by mouth every 8 (eight) hours for 30 days. [facility] LOR[facility]epam 1 mg tablet 2021-07 00:00: 00 05-19 04:59 :00 No [id number] 1mg Take 1 tablet by mouth every 6 (six) hours as needed for Anxiety or Agitation for up to 10 days. [facility] acetaminoph en-codeine 300-30 mg tablet 2021-07 00:00: 00 05-16 04:59 :00 No [id number] 1{tbl} Take 1 tablet by mouth every 4 (four) hours as needed for Pain (scale 7-10) for up to 7 days. Indication s: acute pain [facility] Methylpredn isolone 4 mg tablet 2021-07 00:00: 00 05-10 04:59 :00 No [id number] 4mg Take 1 tablet by mouth every 8 (eight) hours for 3 doses. [facility] divalproex (DEPAKOTE) EC tablet 750 mg 2021-07 01:00: 00 05-08 09:40 :23 No 750mg 750 mg, Oral, BID, First dose on Thu05/06/22 at 2000, Until Discontinu ed, Routine [facility] levETIRAcet am (KEPPRA) tablet 1,500 mg 2021-07 13:00: 00 05-06 18:38 :22 No 1500mg 1,500 mg, Oral, BID, First dose (after last modificati on) on Thu05/06/22 at 0800, Until Discontinu ed, Routine [facility] levETIRAcet am (KEPPRA) in NACL (ISO-OS) 1,000 mg/100 mL RTU 2021-07 05:00: 00 05-06 05:46 :00 No 1000mg 1,000 mg, IV Piggyback, ONCE, 1 dose, On Thu05/06/22 at 0000, Administer over 15 Minutes, 100 mL [facility] methocarbam oL (ROBAXIN) tablet 500 mg 2021-07 02:15: 00 05-06 23:21 :42 No 500mg 500 mg, Oral, QID, First dose on Thu05/05/22 at 2115, Until Discontinu ed, Routine [facility] LORazepam (ATIVAN) tablet 2 mg 2021-07 01:30: 00 05-06 01:03 :00 No 2mg 2 mg, Oral, ONCE, 1 dose, On Thu05/05/22 at 2030, Routine [facility] levETIRAcet am (KEPPRA) tablet 1,000 mg 2021-07 01:00: 00 05-06 04:48 :06 No 1000mg 1,000 mg, Oral, BID, First dose on Thu05/05/22 at 2000, Until Discontinu ed, Routine [facility] enoxaparin (LOVENOX) injection 40 mg 2021-07 00:15: 00 Yes 40mg 40 mg, Subcutaneo us, Q24H, First dose on Thu05/05/22 at 1915, Until Discontinu ed, Routine [facility] levETIRAcet am (KEPPRA) in NACL (ISO-OS) 1,000 mg/100 mL RTU 2021-07 19:45: 00 05-05 20:05 :00 No 1000mg 1,000 mg, IV Piggyback, ONCE, 1 dose, On Thu05/05/22 at 1445, Administer over 15 Minutes, 100 mL [facility] clonazePAM (KLONOPIN) tablet 0.5 mg 2021-07 19:30: 00 Yes .5mg 0.5 mg, Oral, BID, First dose on Thu05/05/22 at 1430, Until Discontinu ed, Routine [facility] ibuprofen (IBU) tablet 600 mg 2021-07 19:30: 00 Yes 600mg 600 mg, Oral, TID MEALS, First dose on Thu05/05/22 at 1430, Until Discontinu ed, Routine [facility] gabapentin (NEURONTIN) [...] [facility] docusate (COLACE) capsule 100 mg 2021-07 14:00: [...] 1418, Routine, Pain (scale 7-10) [facility] ondansetron (ZOFRAN (PF)) injection 4 mg 2021-07 06:49: 57 Yes 4mg 4 mg, Slow IV Push, Q6HPRN, Starting on Thu05/05/22 at 0149, Until Discontinu ed, Routine, Nausea and Vomiting (N/V) [facility] HYDROcodone -acetaminop hen (NORCO 5) 5-325 mg tablet 1 tablet 2021-07 06:49: 41 05-05 10:32 :14 No 1{tbl} 1 tablet, Oral, Q6HPRN, Starting on Thu05/05/22 at 0149, Until Thu05/05/22 at 0532, Routine, Pain (scale 7-10) [facility] acetaminoph en (TYLENOL) tablet 325 mg 2021-07 06:49: 39 05-05 19:18 :52 No 325mg 325 mg, Oral, Q4HPRN, Starting on Thu05/05/22 at 0149, Until Thu05/05/22 at 1418, Routine, Pain (scale 4-6) [facility] ondansetron (ZOFRAN) tablet 4 mg 2021-07 04:00: 00 05-05 03:26 :00 No 4mg 4 mg, Oral, ONCE, 1 dose, On Thu05/04/22 at 2300, Routine [facility] morpHINE (2 mg/mL) injection 2 mg 2021-07 04:00: 00 05-05 03:26 :00 No 2mg 2 mg, Slow IV Push, ONCE, 1 dose, On Thu05/04/22 at 2300, Routine [facility] aspirin 81 mg chewable tablet 04-16 00:00: 00 Yes [id number] 81mg Take 1 tablet by mouth in the morning. [facility] MULTIVITAMI N ORAL 04-15 17:39: 14 Yes 1{tbl} Take 1 Tab by mouth daily. [facility] omega-3 fatty acids-vitam in E (FISH OIL) 1,000 mg capsule 04-15 17:39: 14 Yes 1g Take 1 g by mouth daily. [facility] loratadine (CLARITIN LIQUI-GEL) 10 mg capsule 04-15 17:39: 14 Yes Take by mouth daily. [facility] ondansetron (ZOFRAN) 4 mg tablet 04-15 17:39: 14 Yes 4mg Take 4 mg by mouth every 8 (eight) hours as needed. [facility] pantoprazol e (PROTONIX) 40 mg EC tablet 04-15 17:39: 14 Yes 40mg Take 40 mg by mouth daily. [facility] lisinopril- hydrochloro thiazide 20-12.5 mg per tablet 04-15 15:58: 35 04-15 00:00 :00 No 1{tbl} Take 1 tablet by mouth daily. [facility] levetiracet am (KEPPRA ORAL) 04-15 15:58: 35 04-15 00:00 :00 No Take by mouth. [facility] acetaminoph en-codeine (TYLENOL #4) 300-60 mg tablet 1 tablet 04-15 05:39: 23 04-15 14:39 :42 No 1{tbl} 1 tablet, Oral, Q6HPRN, Starting on Thu04/15/22 at 0039, Until Thu04/15/22 at 0939, Routine, Pain (scale 4-6), Pain (scale 1-3) [facility] LORazepam (ATIVAN) tablet 2 mg 04-15 03:30: 00 04-15 10:27 :00 No 2mg 2 mg, Oral, ONCE, 1 dose, On Thu04/14/22 at 2230, Routine [facility] levETIRAcet am (KEPPRA) tablet 1,000 mg 04-15 02:45: 00 Yes 1000mg 1,000 mg, Oral, BID, First dose (after last modificati on) on Thu04/14/22 at 2145, Until Discontinu ed, Routine [facility] ketorolac (TORADOL) injection 15 mg 04-15 02:13: 00 04-15 02:22 :00 No 15mg 15 mg, Slow IV Push, ONCE, 1 dose, On Thu04/14/22 at 2115, Routine [facility] levETIRAcet am 1,000 mg tablet 04-15 00:00: 00 Yes [id number] 1000mg Take 1 tablet by mouth in the morning and 1 tablet in the evening. [facility] atorvastati n 40 mg tablet 04-15 00:00: 00 01-09 00:00 :00 No [id number] 40mg Take 1 tablet by mouth at bedtime. [facility] lidocaine 5 % (700 mg/patch) patch 04-15 00:00: 00 04-23 04:59 :00 No [id number] 1{patch } Apply 1 Patch to area(s) in the morning for 7 days. [facility] HYDROcodone -acetaminop hen 5-325 mg tablet 04-15 00:00: 00 04-21 04:59 :00 No [id number] 1{tbl} Take 1 tablet by mouth every 6 (six) hours as needed for Pain (scale 7-10) for up to 5 days. Indication s: acute pain [facility] lidocaine (LIDODERM) 5 % (700 mg/patch) patch 1 Patch 04-14 21:45: 29 Yes 1{patch } 1 Patch, Topical, Administer over 12 Hours, [id number], Starting on Thu04/14/22 at 1645, Until Discontinu ed, Routine, Localized pain [facility] aspirin chewable tablet 81 mg 04-14 21:30: 00 Yes 81mg 81 mg, Oral, DAILY, First dose on Thu04/14/22 at 1630, Until Discontinu ed, Routine [facility] acetaminoph en (TYLENOL) tablet 650 mg 04-14 [...] (scale 7-10), Pain (scale 4-6) [facility] sulfur hexafluorid e microsphr (LUMASON) injection 5 mL 04-14 16:45: 00 04-14 16:45 :00 No [id number] 5mL 5 mL, Intravenou s, ONCE, 1 dose, On Thu04/14/22 at 1145, Routine
food service team member approving Restricted medication : MADELINE PIERRE [facility] clopidogreL (PLAVIX) 75 mg tablet 75 mg 04-14 14:00: 00 Yes 75mg 75 mg, Oral, DAILY, First dose on Thu04/14/22 at 0900, Until Discontinu ed, [facility]op[facility] (PROTONIX[facility] EC tablet 40 mg 04-14 14:00: 00 Yes 40mg 40 mg, Oral, DAILY, First dose on Thu04/14/22 at 0900, Until Discontinu ed, Routine [facility] atorvastati n (LIPITOR) tablet 40 mg 04-14 02:00: 00 Yes 40mg 40 mg, Oral, QHS, First dose on Thu04/13/22 at 2100, Until Discontinu ed, [facility] LORazepam (ATIVAN) tablet 1 mg 04-14 01:30: 00 04-14 01:45 :00 No 1mg 1 mg, Oral, ONCE, 1 dose, On Thu04/13/22 at 2030, Routine [facility] methocarbam oL (ROBAXIN) tablet 500 mg 04-14 01:00: 00 Yes 500mg 500 mg, Oral, QID, First dose on Thu04/13/22 at 2000, Until Discontinu ed, Routine [facility] heparin (porcine) injection 5,000 Units 04-14 01:00: 00 Yes 5000U 5,000 Units, Subcutaneo us, Q12H, First dose on Thu04/13/22 at 2000, Until Discontinu ed, Routine [facility] acetaminoph en (TYLENOL) tablet 650 mg 04-14 00:23: 25 04-14 21:29 :42 No 650mg 650 mg, Oral, Q6HPRN, Starting on Thu04/13/22 at 1923, Until Thu04/14/22 at 1629, Routine, Pain (scale 1-3), Pain (scale 4-6), Temp > 38.5 C, Temp > 37.5 C [facility] lidocaine (LIDODERM) 5 % [...] ONCE, 1 dose, On Thu04/13/22 at 1430, [facility] iopamidol (ISOVUE 370-500 mL) injection 100 mL 04-13 18:31: 00 04-13 18:32 :00 No [id number] 100mL 100 mL, Intravenou s, ONCE, 1 dose, On 04/13/22 at 1345, Routine [facility] NaCl 0.9% (NS) injection 5 mL 04-13 18:14: 11 Yes 5mL 5 mL, Slow IV Push, PRN - SEE INSTRUCTIO NS, Starting on [place] 04/13/22 at 1314, Until Discontinu ed, 10 mL [facility] aspirin chewable tablet 324 mg 11-24 14:00: 00 Yes 324mg 324 mg, Oral, DAILY, First dose on [place] 11/24/21 at 0900, Until Discontinu ed, Routine [facility] metoclopram iker HCl (REGLAN) injection 10 mg 11-23 22:30: 00 11-23 21:24 :00 No 10mg 10 mg, Slow IV Push, ONCE, 1 dose, On 11/23/21 at 1730, [facility] acetaminoph en (TYLENOL) tablet 1,000 mg 11-23 22:15: 00 11-23 21:09 :00 No 1000mg 1,000 mg, Oral, ONCE, 1 dose, On 11/23/21 at 1715, [facility] ondansetron (ZOFRAN (PF)) injection 4 mg 11-23 21:45: 00 11-23 20:30 :00 No 4mg 4 mg, Slow IV Push, ONCE, 1 dose, On 11/23/21 at 1645, [facility] NaCl 0.9% (NS) bolus infusion 1,000 mL 11-23 21:30: 00 11-23 21:56 :00 No 1000mL at 999 mL/hr, 1,000 mL, IV Infusion, ONCE, 1 dose, On 11/23/21 at 1630, [facility] LORazepam (ATIVAN) injection 4 mg 11-23 21:30: 00 11-23 20:23 :00 No 4mg 4 mg, Slow IV Push, ONCE, 1 dose, On 11/23/21 at 1630, STAT [facility] levETIRAcet am (KEPPRA) in NACL (ISO-OS) 1,500 mg/100 mL RTU 11-23 21:30: 00 11-23 20:47 :00 No 1500mg 1,500 mg, IV Piggyback, ONCE, 1 dose, On 11/23/21 at 1630, Administer over 15 Minutes, 100 mL [facility] Dose Unknown 0 4-08 00:00: 00 No Dose Unknown 0 408 00:00: 00 No Prozac 20 mg capsule [...] 2022-0 3-06 00:00: 00 No Dose Unknown 2021-0 3-06 00:00: 00 No Dose Unknown 2021-0 3-06 00:00: 00 No Dose Unknown 2021-0 3-06 00:00: 00 No Dose Unknown 3-06 [...] y
Durat ion of Therapy: 7 days [facility] morpHINE injection 4 mg 03-17 01:58: 00 03-17 02:13 :00 No 4mg 4 mg, Slow IV Push, ONCE, 1 dose, 03/16/21 at 2100, STAT [facility] ondansetron (ZOFRAN (PF)) injection 4 mg 03-17 01:58: 00 03-17 02:12 :00 No 4mg 4 mg, Slow IV Push, ONCE, 1 dose, 03/16/21 at 2100, [facility] ipratropium -albuteroL (DUONEB) 0.5 mg-3 mg(2.5 mg base)/3 mL nebulizer solution 3 mL 03-17 01:57: 00 03-17 02:15 :00 No 3mL 3 mL, Inhalation , ONCE, 1 dose, 03/16/21 at 2100, [facility] NaCl 0.9% (NS) IV infusion 1,000 mL 03-17 01:57: 00 03-17 03:07 :00 No 1000mL at 999 mL/hr, Intravenou s, ONCE, 1 dose, 03/16/21 at 2100, [facility] methylpredn isolone sod succ (SOLU-MEDRO L) injection 125 mg 03-17 01:57: 00 03-17 02:11 :00 No 125mg 125 mg, Slow IV Push, ONCE, 1 dose, 03/16/21 at 2100, STAT [facility] levoFLOXaci n 500 mg tablet 03-17 00:00: 00 03-24 04:59 :00 No [id number] 500mg Take 1 tablet by mouth daily for 6 days. [facility] predniSONE 10 mg tablet 03-17 00:00: 00 03-22 04:59 :00 No [id number] 30mg Take 3 tablets by mouth daily for 4 days. [facility] albuterol (VENTOLIN) inhaler 4 Puff 03-15 01:45: 00 03-15 00:44 :00 No [id number] 4{puff} 4 Puff, Inhalation , ONCE, 1 dose, [place] 03/14/21 at 2044, Routine [facility] dexamethaso ne (DECADRON) injection 10 mg 03-15 01:45: 00 03-15 00:45 :00 No [id number] 10mg 10 mg, Intramuscu lar, ONCE, 1 dose, [place] 03/14/21 at 2044, Routine [facility] albuterol 2.5 mg /3 mL (0.083 %) nebulizer solution 03-15 00:00: 00 01-09 00:00 :00 No [id number] 2.5mg Inhale 3 mL every 4 (four) hours as needed for Wheezing or Shortness of Breath. [facility] levETIRAcet am (KEPPRA) in NACL (ISO-OS) 1,000 mg/100 mL RTU 02-19 20:15: 00 02-19 19:30 :00 No 1000mg 1,000 mg, IV Infusion, ONCE, 1 dose, 02/19/21 at 1515, Administer over 15 Minutes, 100 mL [facility] levetiracet am (KEPPRA ORAL) 02-19 19:45: 33 Yes Take by mouth. [facility] LISINOPRIL- HYDROCHLORO THIAZIDE ORAL 02-19 19:41: 15 02-19 00:00 :00 No Take by mouth. [facility] dicyclomine (BENTYL) injection 20 mg 02-19 19:15: 00 02-19 19:04 :00 No 20mg 20 mg, Intramuscu lar, ONCE, 1 dose, 02/19/21 at 1415, Routine [facility] proMETHazin e (PHENERGAN) 25 mg in NaCl 0.9% (NS) 50 mL piggyback 02-19 19:15: 02-19 19:03 :00 No 25mg 25 mg, IV Piggyback, ONCE, 1 dose, 02/19/21 at 1415, 50 mL [facility] morpHINE injection 4 mg 02-19 17:15: 00 02-19 17:05 :00 No 4mg 4 mg, Slow IV Push, ONCE, 1 dose, 02/19/21 at 1215, STAT [facility] NaCl 0.9% (NS) bolus infusion 1,000 mL 02-19 17:15: 00 02-19 19:04 :00 No 1000mL at 999 mL/hr, 1,000 mL, IV Infusion, ONCE, 1 dose, 02/19/21 at 1215, STAT [facility] ondansetron (ZOFRAN (PF)) injection 4 mg 02-19 17:00: 00 02-19 15:59 :00 No 4mg 4 mg, Slow IV Push, ONCE, 1 dose, Thu02/19/21 at 1200, [facility] iopamidol (ISOVUE 370-500 mL) injection 100 mL 02-19 16:35: 00 02-19 16:45 :00 No [id number] 100mL 100 mL, Intravenou s, ONCE, 1 dose, Thu02/19/21 at 1145, Routine [facility] levetiracet am (KEPPRA ORAL) 02-19 14:45: 33 Yes Take by mouth. [facility] dicyclomine 20 mg tablet 02-19 00:00: 00 01-09 00:00 :00 No [id number] 20mg Take 1 tablet by mouth 4 (four) times daily as needed for Abdominal pain. [facility] proMETHazin e 25 mg tablet 02-19 00:00: 00 11-27 00:00 :00 No [id number] 25mg Take 1 tablet by mouth every 6 (six) hours as needed for Nausea and Vomiting (N/V). [facility] ZONISAMIDE 100 mg capsule 11-15 00:00: 00 Yes TAKE 1 CAPSULE BY MOUTH TWICE A DAY [facility] ondansetron (ZOFRAN) 4 mg tablet 02-09 20:05: 01 Yes 4mg Take 4 mg by mouth every 8 (eight) hours as needed. [facility] pantoprazol e (PROTONIX) 40 mg EC tablet 02-09 20:05: 01 Yes 40mg Take 40 mg by mouth daily. [facility] LISINOPRIL- HYDROCHLORO THIAZIDE ORAL 02-09 20:05: 01 Yes Take by mouth. [facility] lisinopril- hydrochloro thiazide 20-12.5 mg per tablet 02-09 20:03: 30 Yes 1{tbl} Take 1 tablet by mouth daily. [facility] omega-3 fatty acids-vitam in E (FISH OIL) 1,000 mg capsule 02-09 19:59: 52 Yes 1g Take 1 g by mouth daily. [facility] MULTIVITAMI N ORAL 02-09 19:58: 14 Yes 1{tbl} Take 1 Tab by mouth daily. [facility] loratadine (CLARITIN LIQUI-GEL) 10 mg capsule 02-09 19:58: 14 Yes Take by mouth daily. [facility] ondansetron (ZOFRAN) 4 mg tablet 02-09 15:05: 01 Yes 4mg Take 4 mg by mouth every 8 (eight) hours as needed. [facility] pantoprazol e (PROTONIX) 40 mg EC tablet 02-09 15:05: 01 Yes 40mg Take 40 mg by mouth daily. [facility] lisinopril- hydrochloro thiazide 20-12.5 mg per tablet 02-09 15:03: 30 Yes 1{tbl} Take 1 tablet by mouth daily. [facility] omega-3 fatty acids-vitam in E (FISH OIL) 1,000 mg capsule 02-09 14:59: 52 Yes 1g Take 1 g by mouth daily. [facility] MULTIVITAMI N ORAL 02-09 14:58: 14 Yes 1{tbl} Take 1 Tab by mouth daily. [facility] loratadine (CLARITIN LIQUI-GEL) 10 mg capsule 02-09 14:58: 14 Yes Take by mouth daily. [facility] proMETHazin e (PHENERGAN) 25 mg tablet 11-20 00:00: 00 Yes 25mg Take 1 tablet by mouth every 6 (six) hours as needed for Nausea and Vomiting (N/V). [facility] carvedilol (COREG) 6.25 mg tablet 09-19 00:00: 00 12-02 00:00 :00 No 6.25mg Take 1 Tab by mouth 2 (two) times daily with meals. [facility] amLODIPine (NORVASC) 10 mg tablet 09-19 00:00: 00 12-02 00:00 :00 No 10mg Take 1 Tab by mouth daily. [facility] lisinopril (PRINIVIL,Z ESTRIL) 40 mg tablet 09-19 00:00: 00 11-27 00:00 :00 No 40mg Take 1 Tab by mouth daily. [facility] Immunizations Ordered Immunization Name Filled Immunization Name Date Status Comments Source SARS-COV-2 COVID-19 PFIZER BA-SUCROSE VACCINE ([facility]) 2022-02-19 00:00:00 Completed [facility] SARS-COV-2 COVID-19 PFIZER BA-SUCROSE VACCINE ([facility]) 2022-02-19 00:00:00 Completed [facility] SARS-COV-2 COVID-19 PFIZER BA-SUCROSE VACCINE ([facility]) 2022-02-19 00:00:00 Completed [facility] SARS-COV-2 COVID-19 PFIZER AB-SUCROSE VACCINE ([facility]) 2022-02-19 00:00:00 Completed [facility] SARS-COV-2 COVID-19 PFIZER BA-SUCROSE VACCINE ([facility]) 2022-02-19 00:00:00 Completed [facility] SARS-COV-2 COVID-19 PFIZER BA-SUCROSE VACCINE ([facility]) 2022-02-19 00:00:00 Completed [facility] SARS-COV-2 COVID-19 PFIZER BA-SUCROSE VACCINE ([facility]) 2022-02-19 00:00:00 Completed [facility] SARS-COV-2 COVID-19 PFIZER BA-SUCROSE VACCINE ([facility]) 2022-02-19 00:00:00 Completed [facility] SARS-COV-2 COVID-19 PFIZER BA-SUCROSE VACCINE ([facility]) 2022-02-19 00:00:00 Completed [facility] SARS-COV-2 COVID-19 PFIZER BA-SUCROSE VACCINE ([facility]) 2022-02-19 00:00:00 Completed [facility] SARS-COV-2 COVID-19 PFIZER VACCINE 2021-05-24 00:00:00 Completed SARS-COV-2 COVID-19 PFIZER VACCINE 2021-05-24 00:00:00 Completed [facility] SARS-COV-2 COVID-19 PFIZER VACCINE 2021-05-24 00:00:00 Completed [facility] SARS-COV-2 COVID-19 PFIZER VACCINE 2021-05-24 00:00:00 Completed [facility] SARS-COV-2 COVID-19 PFIZER VACCINE 2021-05-24 00:00:00 Completed [facility] SARS-COV-2 COVID-19 PFIZER VACCINE 2021-05-24 00:00:00 Completed [facility] SARS-COV-2 COVID-19 PFIZER VACCINE 2021-05-24 00:00:00 Completed [facility] SARS-COV-2 COVID-19 PFIZER VACCINE 2021-05-24 00:00:00 Completed [facility] SARS-COV-2 COVID-19 PFIZER VACCINE 2021-05-24 00:00:00 Completed [facility] SARS-COV-2 COVID-19 PFIZER VACCINE 2021-05-24 00:00:00 Completed [facility] SARS-COV-2 COVID-19 PFIZER VACCINE 2021-05-24 00:00:00 Completed [facility] SARS-COV-2 COVID-19 PFIZER VACCINE 2021-05-24 00:00:00 Completed [facility] SARS-COV-2 COVID-19 PFIZER VACCINE 2021-05-03 00:00:00 Completed [facility] SARS-COV-2 COVID-19 PFIZER VACCINE 2021-05-03 00:00:00 Completed [facility] SARS-COV-2 COVID-19 PFIZER VACCINE 2021-05-03 00:00:00 Completed [facility] SARS-COV-2 COVID-19 PFIZER VACCINE 2021-05-03 00:00:00 Completed [facility] SARS-COV-2 COVID-19 PFIZER VACCINE 2021-05-03 00:00:00 Completed [facility] SARS-COV-2 COVID-19 PFIZER VACCINE 2021-05-03 00:00:00 Completed [facility] SARS-COV-2 COVID-19 PFIZER VACCINE 2021-05-03 00:00:00 Completed [facility] SARS-COV-2 COVID-19 PFIZER VACCINE 2021-05-03 00:00:00 Completed [facility] SARS-COV-2 COVID-19 PFIZER VACCINE 2021-05-03 00:00:00 Completed [facility] SARS-COV-2 COVID-19 PFIZER VACCINE 2021-05-03 00:00:00 Completed [facility] SARS-COV-2 COVID-19 PFIZER VACCINE 2021-05-03 00:00:00 Completed [facility] SARS-COV-2 COVID-19 PFIZER VACCINE 2021-05-03 00:00:00 Completed [facility] SARS-COV-2 COVID-19 PFIZER VACCINE 2021-05-03 00:00:00 Completed [facility] SARS-COV-2 COVID-19 PFIZER VACCINE Unknown Completed [facility] SARS-COV-2 COVID-19 PFIZER BA-SUCROSE VACCINE ([facility]) Unknown Completed [facility] SARS-COV-2 COVID-19 PFIZER BA-SUCROSE VACCINE ([facility] TOP) Unknown Completed [facility] SARS-COV-2 COVID-19 PFIZER VACCINE Unknown Completed [facility] SARS-COV-2 COVID-19 PFIZER VACCINE Unknown Completed [facility] SARS-COV-2 COVID-19 PFIZER BA-SUCROSE VACCINE ([facility] [facility]) Unknown Completed [facility] SARS-COV-2 COVID-19 PFIZER VACCINE Unknown Completed [facility] SARS-COV-2 COVID-19 PFIZER BA-SUCROSE VACCINE ([place] TOP) Unknown Completed [facility] SARS-COV-2 COVID-19 PFIZER VACCINE Unknown Completed [facility] SARS-COV-2 COVID-19 PFIZER BA-SUCROSE VACCINE ([place] TOP) Unknown Completed [facility] SARS-COV-2 COVID-19 PFIZER VACCINE Unknown Completed [facility] SARS-COV-2 COVID-19 PFIZER BA-SUCROSE VACCINE ([place] TOP) Unknown Completed [facility] SARS-COV-2 COVID-19 PFIZER VACCINE Unknown Completed [facility] SARS-COV-2 COVID-19 PFIZER BA-SUCROSE VACCINE ([place] TOP) Unknown Completed [facility] SARS-COV-2 COVID-19 PFIZER VACCINE Unknown Completed [facility] SARS-COV-2 COVID-19 PFIZER BA-SUCROSE VACCINE ([place] TOP) Unknown Completed [facility] SARS-COV-2 COVID-19 PFIZER VACCINE Unknown Completed [facility] SARS-COV-2 COVID-19 PFIZER BA-SUCROSE VACCINE ([facility] TOP) Unknown Completed [facility] SARS-COV-2 COVID-19 PFIZER VACCINE Unknown Completed [facility] SARS-COV-2 COVID-19 PFIZER BA-SUCROSE VACCINE ([facility] TOP) Unknown Completed [facility] SARS-COV-2 COVID-19 PFIZER VACCINE Unknown Completed [facility] SARS-COV-2 COVID-19 PFIZER BA-SUCROSE VACCINE ([facility] TOP) Unknown Completed [facility] SARS-COV-2 COVID-19 PFIZER VACCINE Unknown Completed [facility] SARS-COV-2 COVID-19 PFIZER BA-SUCROSE VACCINE ([facility] TOP) Unknown Completed [facility] SARS-COV-2 COVID-19 PFIZER VACCINE Unknown Completed [facility] SARS-COV-2 COVID-19 PFIZER BA-SUCROSE VACCINE ([facility] TOP) Unknown Completed [facility] SARS-COV-2 COVID-19 PFIZER VACCINE Unknown Completed [facility] SARS-COV-2 COVID-19 PFIZER BA-SUCROSE VACCINE ([facility] TOP) Unknown Completed [facility] Vital Signs Vital Name Observation Time Observation Value Comments S ource Systolic blood pressure 2024-08-10 15:08:00 164 mm[Hg] [facility] Diastolic blood pressure 2024-08-10 15:08:00 87 mm[Hg] [facility] Heart rate 2024-08-10 15:08:00 90 /min Jackyor iaraul [facility] Body temperature 2024-08-10 15:08:00 36.44 Radha [facility] Respiratory rate 2024-08-10 15:08:00 20 /min [facility] Oxygen saturation in Arterial blood by Pulse oximetry 2024-08-10 15:08:00 97 /min [facility] Body height 2024-08-10 05:20:00 160 cm Jeffrey Ayalaann [facility] Body weight 2024-08-10 05:20:00 81.647 kg Jeffrey [facility] BMI 2024-08-10 05:20:00 31.89 kg/m2 Jeffrey [facility] Systolic blood pressure 2024-08-10 15:08:00 164 mm[Hg] [facility] Diastolic blood pressure 2024-08-10 15:08:00 87 mm[Hg] [facility] Heart rate 2024-08-10 15:08:00 90 [facility] 2024-08-10 15:08:00 36.44 Radha [facility] Respiratory rate 2024-08-10 15:08:00 20 /min [facility] Oxygen saturation in Arterial blood by Pulse oximetry 2024-08-10 15:08:00 97 /min [facility] Her [facility] Body height 2024-08-10 05:20:00 160 cm Jeffrey Ayalaann [facility] Body weight 2024-08-10 05:20:00 81.647 kg [facility] 2024-08-10 05:20:00 31.89 kg/m2 [facility] Systolic blood pressure 2024-04-03 05:10:00 111 mm[Hg] [facility] Diastolic blood pressure 2024-04-03 05:10:00 65 mm[Hg] [facility] Heart rate 2024-04-03 05:10:00 70 /min [facility] 2024-04-03 05:10:00 23 /min [facility] Oxygen saturation in Arterial blood by Pulse oximetry 2024-04-03 05:10:00 97 /min [facility] Body temperature 2024-04-03 01:49:00 37.33 Radha [facility] Body height 2024-04-03 01:49:00 157.5 cm [facility] Body weight 2024-04-03 01:49:00 90.719 kg [facility] BMI 2024-04-03 01:49:00 36.58 kg/m2 [facility] Systolic blood pressure 2024-01-13 04:50:00 103 mm[Hg] [facility] Diastolic blood pressure 2024-01-13 04:50:00 72 mm[Hg] [facility] Heart rate 2024-01-13 04:50:00 85 /min [facility] Body temperature 2024-01-13 04:50:00 36.67 Radha [facility] Oxygen saturation in Arterial blood by Pulse oximetry 2024-01-13 04:50:00 99 /min [facility] Respiratory rate 2024-01-13 04:40:00 19 /min [facility] Body height 2024-01-13 03:06:00 160 cm [facility] Body weight 2024-01-13 03:06:00 81.194 kg [facility] BMI 2024-01-13 03:06:00 31.71 kg/m2 [facility] Systolic blood pressure 2024-01-10 20:00:00 95 mm[Hg] [facility] Diastolic blood pressure 2024-01-10 20:00:00 71 mm[Hg] [facility] Heart rate 2024-01-10 20:00:00 73 /min [facility] Body temperature 2024-01-10 20:00:00 36.83 Radha [facility] Respiratory rate 2024-01-10 20:00:00 23 /min [facility] Oxygen saturation in Arterial blood by Pulse oximetry 2024-01-10 20:00:00 94 /min [facility] Body weight 2024-01-10 09:00:00 81.466 kg [facility] BMI 2024-01-10 09:00:00 32.85 kg/m2 [facility] Body height 2024-01-09 21:10:00 157.5 cm [facility] Heart rate 2023-12-15 12:35:00 73 /min [facility] Respiratory rate 2023-12-15 12:35:00 18 /min [facility] Oxygen saturation in Arterial blood by Pulse oximetry 2023-12-15 12:35:00 95 /min [facility] Systolic blood pressure 2023-12-15 12:20:00 105 mm[Hg] [facility] Diastolic blood pressure 2023-12-15 12:20:00 64 mm[Hg] [facility] Body temperature 2023-12-15 12:20:00 36.11 Radha [facility] Body weight 2023-12-15 08:12:00 78.472 kg [facility] BMI 2023-12-15 08:12:00 30.65 kg/m2 [facility] Body height 2023-12-15 02:10:00 160 cm [facility] Systolic blood pressure 2023-12-03 23:00:00 106 mm[Hg] [facility] Diastolic blood pressure 2023-12-03 23:00:00 75 mm[Hg] [facility] Heart rate 2023-12-03 23:00:00 108 /min [facility] Body temperature 2023-12-03 23:00:00 36.61 [facility] Respiratory rate 2023-12-03 23:00:00 17 /min [facility] Oxygen saturation in Arterial blood by Pulse oximetry 2023-12-03 23:00:00 96 /min [facility] Body height 2023-12-03 19:39:00 160 cm [facility] Body weight 2023-12-03 19:39:00 90.7 kg [facility] BMI 2023-12-03 19:39:00 35.43 kg/m2 [facility] Systolic blood pressure 2023-11-28 16:39:00 91 mm[Hg] [facility] Diastolic blood pressure 2023-11-28 16:39:00 65 mm[Hg] [facility] Heart rate 2023-11-28 16:39:00 105 /min [facility] Body temperature 2023-11-28 16:39:00 36.28 Radha [facility] Respiratory rate 2023-11-28 16:39:00 20 /min [facility] Oxygen saturation in Arterial blood by Pulse oximetry 2023-11-28 16:39:00 97 /min [facility] Body weight 2023-11-28 01:00:00 84 kg [facility] BMI 2023-11-28 01:00:00 32.81 kg/m2 [facility] Body height 2023-11-22 07:10:00 160 cm [facility] Systolic blood pressure 2023-11-23 19:43:25 123 mm[Hg] [facility] Diastolic blood pressure 2023-11-23 19:43:25 79 mm[Hg] [facility] Respiratory rate 2023-11-23 19:43:25 17 /min [facility] Oxygen saturation in Arterial blood by Pulse oximetry 2023-11-23 19:43:25 97 /min [facility] Heart rate 2023-11-23 19:20:46 122 /min [facility] Body temperature 2023-11-23 15:00:00 36.22 Radha [facility] Body height 2023-11-22 07:10:00 160 cm [facility] Body weight 2023-11-22 07:10:00 94.484 kg [facility] BMI 2023-11-22 07:10:00 35.16 kg/m2 [facility] Systolic blood pressure 2023-09-11 17:27:00 122 [...] Systolic blood pressure 2023-08-12 21:00:00 130 mm[Hg] [facility] Diastolic blood pressure 2023-08-12 21:00:00 85 mm[Hg] [facility] Heart rate 2023-08-12 21:00:00 106 /min [facility] Respiratory rate 2023-08-12 21:00:00 14 /min [facility] Oxygen saturation in Arterial blood by Pulse oximetry 2023-08-12 21:00:00 95 /min [facility] Body temperature 2023-08-12 20:34:54 37.22 Radha [facility] Body height 2023-08-12 19:47:00 157.5 cm [facility] Body weight 2023-08-12 19:47:00 81.647 kg [facility] BMI 2023-08-12 19:47:00 32.92 kg/m2 [facility] WEIGHT 2023-06-16 05:26:00 86.047 kg [...] Systolic blood pressure 2022-12-11 20:00:00 142 mm[Hg] [facility] Diastolic blood pressure 2022-12-11 20:00:00 90 mm[Hg] [facility] Respiratory rate 2022-12-11 20:00:00 24 /min [facility] Heart rate 2022-12-11 18:00:00 101 /min [facility] Oxygen saturation in Arterial blood by Pulse oximetry 2022-12-11 18:00:00 93 /min [facility] BMI 2022-12-11 13:55:00 35.43 kg/m2 [facility] Body temperature 2022-12-11 13:55:00 37.22 Radha [facility] Body weight 2022-12-11 13:55:00 90.719 kg [facility] Systolic blood pressure 2022-11-18 05:34:00 152 mm[Hg] [facility] Diastolic blood pressure 2022-11-18 05:34:00 98 mm[Hg] [facility] Heart rate 2022-11-18 05:34:00 88 /min [facility] Respiratory rate 2022-11-18 05:34:00 18 /min [facility] Oxygen saturation in Arterial blood by Pulse oximetry 2022-11-18 05:34:00 97 /min [facility] Body temperature 2022-11-17 22:28:00 37.06 Radha [facility] Body height 2022-11-17 22:28:00 160 cm [facility] Body weight 2022-11-17 22:28:00 99.791 [facility] [facility] BMI 2022-11-17 22:28:00 38.97 kg/m2 [facility] Heart rate 2022-08-02 02:02:00 108 /min [facility] Respiratory rate 2022-08-02 02:02:00 28 /min [facility] Oxygen saturation in Arterial blood by Pulse oximetry 2022-08-02 02:02:00 97 /min [facility] Body temperature 2022-08-02 01:00:00 36.44 Radha [facility] Systolic blood pressure 2022-08-01 23:29:00 145 mm[Hg] [facility] Diastolic blood pressure 2022-08-01 23:29:00 103 mm[Hg] [facility] Body weight 2022-08-01 09:16:00 97.977 kg [facility] BMI 2022-08-01 09:16:00 38.26 kg/m2 [facility] Body height 2022-07-31 21:54:00 160 cm [facility] Systolic blood pressure 2022-05-08 16:40:00 146 mm[Hg] [facility] Diastolic blood pressure 2022-05-08 16:40:00 96 mm[Hg] [facility] Heart rate 2022-05-08 16:40:00 112 /min [facility] Body temperature 2022-05-08 16:40:00 36.78 Radha [facility] Respiratory rate 2022-05-08 16:40:00 18 /min [facility] Oxygen saturation in Arterial blood by Pulse oximetry 2022-05-08 16:40:00 94 /min [facility] Body height 2022-05-05 23:44:00 160 cm [facility] Body weight 2022-05-05 23:37:00 81.647 kg [facility] BMI 2022-05-05 23:37:00 31.89 kg/m2 [facility] Systolic blood pressure 2022-04-15 18:52:00 104 mm[Hg] [facility] Diastolic blood pressure 2022-04-15 18:52:00 82 mm[Hg] [facility] Heart rate 2022-04-15 18:52:00 114 /min [facility] Oxygen saturation in Arterial blood by Pulse oximetry 2022-04-15 18:52:00 98 /min [facility] Body temperature 2022-04-15 16:14:00 36.28 Radha [facility] Respiratory rate 2022-04-15 16:14:00 17 /min [facility] Body height 2022-04-13 21:08:00 160 cm [facility] Body weight 2022-04-13 21:08:00 91.173 kg [facility] BMI 2022-04-13 21:08:00 35.61 kg/m2 [facility] Systolic blood pressure 2021-11-23 21:30:00 132 mm[Hg] [facility] Diastolic blood pressure 2021-11-23 21:30:00 76 mm[Hg] [facility] Heart rate 2021-11-23 21:30:00 95 /min [facility] Respiratory rate 2021-11-23 21:30:00 13 /min [facility] Oxygen saturation in Arterial blood by Pulse oximetry 2021-11-23 21:30:00 97 /min [facility] Body temperature 2021-11-23 20:15:00 37.56 Radha [facility] Systolic blood pressure 2021-03-17 03:00:00 117 mm[Hg] [facility] Diastolic blood pressure 2021-03-17 03:00:00 76 mm[Hg] [facility] Heart rate 2021-03-17 03:00:00 104 /min [facility] Respiratory rate 2021-03-17 03:00:00 28 /min [facility] Oxygen saturation in Arterial blood by Pulse oximetry 2021-03-17 03:00:00 96 /min [facility] Body temperature 2021-03-17 00:39:00 37.11 Rahda [facility] Body height 2021-03-17 00:39:00 160 cm [facility] Body weight 2021-03-17 00:39:00 58.968 kg [facility] BMI 2021-03-17 00:39:00 23.03 kg/m2 [facility] Systolic blood pressure 2021-03-15 00:14:00 149 mm[Hg] [facility] Diastolic blood pressure 2021-03-15 00:14:00 78 mm[Hg] [facility] Heart rate 2021-03-15 00:14:00 100 /min [facility] Body temperature 2021-03-15 00:14:00 37.33 Radha [facility] Respiratory rate 2021-03-15 00:14:00 24 /min [facility] Body height 2021-03-15 00:14:00 160 cm [facility] Body weight 2021-03-15 00:14:00 58.968 kg [facility] BMI 2021-03-15 00:14:00 23.03 kg/m2 [facility] Oxygen saturation in Arterial blood by Pulse oximetry 2021-03-15 00:14:00 98 /min [facility] Systolic blood pressure 2021-02-19 18:00:00 131 mm[Hg] [facility] Diastolic blood pressure 2021-02-19 18:00:00 80 mm[Hg] [facility] Heart rate 2021-02-19 18:00:00 83 /min [facility] Respiratory rate 2021-02-19 18:00:00 18 /min [facility] Oxygen saturation in Arterial blood by Pulse oximetry 2021-02-19 18:00:00 100 /min [facility] Body temperature 2021-02-19 15:47:00 37 Radha [facility] Body height 2021-02-19 15:47:00 160 cm [facility] Body weight 2021-02-19 15:47:00 58.968 kg [facility] BMI 2021-02-19 15:47:00 23.03 kg/m2 [facility] Heart rate 2023-09-08 08:54:00 118 /min [facility] Respiratory rate 2023-09-08 08:54:00 21 /min [facility] Oxygen saturation in Arterial blood by Pulse oximetry 2023-09-08 08:54:00 100 /min [facility] Systolic blood pressure 2023-09-08 08:32:00 110 mm[Hg] [facility] Diastolic blood pressure 2023-09-08 08:32:00 77 mm[Hg] [facility] Body temperature 2023-09-08 08:32:00 36.06 Radha [facility] Body height 2023-09-04 00:58:00 157.5 cm [facility] Body weight 2023-09-04 00:58:00 80 kg [facility] BMI 2023-09-04 00:58:00 32.26 kg/m2 [facility] Heart rate 2023-06-16 17:00:00 108 /min [facility] Systolic blood pressure 2023-06-16 15:31:00 101 mm[Hg] [facility] Diastolic blood pressure 2023-06-16 15:31:00 81 mm[Hg] [facility] Body temperature 2023-06-16 15:31:00 36.61 Radha [facility] Respiratory rate 2023-06-16 15:31:00 18 /min [facility] Oxygen saturation in Arterial blood by Pulse oximetry 2023-06-16 15:31:00 94 /min [facility] Body weight 2023-06-16 05:26:00 86.047 kg [facility] BMI 2023-06-16 05:26:00 33.60 kg/m2 [facility] Body height 2023-06-13 04:00:00 160 cm [facility] Systolic blood pressure 2023-06-04 13:02:00 93 mm[Hg] [facility] Diastolic blood pressure 2023-06-04 13:02:00 57 mm[Hg] [facility] Heart rate 2023-06-04 13:02:00 101 /min [facility] Respiratory rate 2023-06-04 13:02:00 22 /min [facility] Oxygen saturation in Arterial blood by Pulse oximetry 2023-06-04 13:02:00 95 /min room air [facility] Body temperature 2023-06-04 11:46:00 35.28 Radha [facility] Systolic blood pressure 2023-05-28 16:00:00 154 mm[Hg] [facility] Diastolic blood pressure 2023-05-28 16:00:00 82 mm[Hg] [facility] Heart rate 2023-05-28 16:00:00 89 /min [facility] Body temperature 2023-05-28 16:00:00 36.67 Radha [facility] Respiratory rate 2023-05-28 16:00:00 16 /min [facility] Oxygen saturation in Arterial blood by Pulse oximetry 2023-05-28 16:00:00 97 /min [facility] Body height 2023-05-28 07:00:00 157.5 cm [facility] Body weight 2023-05-28 07:00:00 87.544 kg [facility] BMI 2023-05-28 07:00:00 35.30 kg/m2 [facility] Body height 2023-05-26 09:12:00 157.5 cm [facility] Body weight 2023-05-26 09:12:00 87.091 kg [facility] BMI 2023-05-26 09:12:00 35.12 kg/m2 [facility] Respiratory rate 2023-04-02 16:35:00 18 /min [facility] Oxygen saturation in Arterial blood by Pulse oximetry 2023-04-02 16:35:00 98 /min [facility] Systolic blood pressure 2023-04-02 12:00:00 147 mm[Hg] [facility] Diastolic blood pressure 2023-04-02 12:00:00 97 mm[Hg] [facility] Heart rate 2023-04-02 12:00:00 106 /min [facility] Body temperature 2023-04-02 12:00:00 36.28 Radha [facility] Body height 2023-03-30 02:14:00 157.5 cm [facility] Body weight 2023-03-30 02:14:00 92.08 kg [facility] BMI 2023-03-30 02:14:00 37.13 kg/m2 [facility] Respiratory rate 2022-08-03 14:40:00 18 /min [facility] Systolic blood pressure 2022-08-03 12:13:00 112 mm[Hg] [facility] Diastolic blood pressure 2022-08-03 12:13:00 77 mm[Hg] [facility] Heart rate 2022-08-03 12:13:00 115 /min [facility] Oxygen saturation in Arterial blood by Pulse oximetry 2022-08-03 12:13:00 93 /min [facility] Body temperature 2022-08-03 12:00:00 36.83 Radha [facility] Body height 2022-08-02 21:52:00 160.2 cm [facility] Body weight 2022-08-02 21:52:00 95 kg [facility] BMI 2022-08-02 21:52:00 37.02 kg/m2 [facility] BP Systolic 2022-07-24 13:31:00 136 [...] CT brain wo IV contrast 2024-08-24 00:00:00 [facility] X[facility] FEMUR 2+ VW RIGHT 2024-08-10 10:28:08 Dipak Colindres [facility] XR HIP 2-3 VIEWS RIGHT 2024-08-10 10:27:46 Dipak Colindres [facility] UA WITH CULTURE IF INDICATED 2024-08-10 09:51:00 Dipak Colindres [facility] VALPROIC ACID LEVEL 2024-08-10 08:31:00 Prakash Eckert [facility] XR CHEST 1 VIEW 2024-08-10 07:18:37 Dipak Colindres [facility] XR PELVIS 1-2 VIEWS 2024-08-10 07:18:15 Dipak Colindres [facility] CT BRAIN WO IV CONTRAST 2024-08-10 06:06:00 Dipak Colindres [facility] CT CERVICAL SPINE WO IV CONTRAST 2024-08-10 06:06:00 Jens Dipak Dixon [facility] BASIC METABOLIC PANEL 2024-08-10 05:51:00 Jens Dipak Dixon [facility] HEPATIC FUNCTION PANEL 2024-08-10 05:51:00 Jens Dipak Dixon [facility] MAGNESIUM LEVEL 2024-08-10 05:51:00 Jens Dipak Dixon [facility] PHOSPHORUS LEVEL 2024-08-10 05:51:00 Jens Dipak Dixon [facility] TYPE AND SCREEN 2024-08-10 05:51:00 Jens Dpiak Dixon [facility] COMPLETE BLOOD COUNT W/DIFF AND PLATELET 2024-08-10 05:51:00 Jens Dipak Dixon [facility] THROMBOELASTOGRAPH RAPID 2024-08-10 05:51:00 Jens Dipak Dixon [facility] COMPLETE BLOOD COUNT 2024-08-10 05:51:00 Jens Dipak Dixon [facility] AUTOMATED DIFFERENTIAL 2024-08-10 05:51:00 Jens Dipak Dixon [facility] POC GLUCOSE UNSOLICITED RESULTS 2024-08-10 05:33:00 Brooklynn Paige [facility] ECG 12 lead (arrhythmia) 2024-08-10 00:00:00 [facility] Urine Culture 2024-08-10 00:00:00 [facility] LACTIC ACID WHOLE BLOOD 2024-04-03 01:59:00 Chrissy Mohr [facility] BASIC METABOLIC PANEL (NA, K , CL, CO2, GLUCOSE, BUN, CREATININE, CA) 2024-04-03 01:58:00 Chrissy Mohr [facility] CBC WITH DIFF 2024-04-03 01:58:00 Tammy Chrissy [facility] N-TERMINAL PRO-BNP 2024-04-03 01:58:00 Chrissy Mohr [facility] EKG-12 LEAD 2024-01-13 04:42:14 Radha Wyatt [facility] TROPONIN I 2024-01-13 03:20:00 Radha Wyatt [facility] COMP. METABOLIC PANEL ([id number]) 2024-01-13 03:20:00 Radha Wyatt [facility] CBC WITH DIFF 2024-01-13 03:20:00 Radha Wyatt [facility] TRANSTHORACIC ECHO (TTE) LIMITED W/ DOPPLER, COLOR AND CONTRAST 2024-01-10 13:07:00 Darrick Altamirano [facility] MAGNESIUM 2024-01-10 09:16:00 Darrick Altamirano [facility] TROPONIN I 2024-01-10 09:16:00 Darrick Altamirano [facility] BASIC METABOLIC PANEL (NA, K , CL, CO2, GLUCOSE, BUN, CREATININE, CA) 2024-01-10 09:16:00 Darrick Altamirano [facility] LIPID PANEL ([id number])(TOTAL CHOLESTEROL, TRIGLYCERIDES, HDL) 2024-01-10 09:16:00 Darrick Altamirano [facility] CBC WITH DIFF 2024-01-10 09:16:00 Darrick Altamirano [facility] PROTHROMBIN TIME / INR 2024-01-10 09:16:00 Darrick Altamirano [facility] ACTIVATED PARTIAL THRMPLAS DAVID 2024-01-10 09:16:00 Darrick Altamirano [facility] N-TERMINAL PRO-BNP 2024-01-10 09:16:00 Darrick Altamirano [facility] PHOSPHORUS 2024-01-10 04:58:00 Darrick Altamirano [facility] BLOOD CULTURE SCREEN 2024-01-10 02:39:00 Alfonso Alvarado [facility] BLOOD CULTURE SCREEN 2024-01-10 02:20:00 Alfonso Alvarado [facility] LACTIC ACID WHOLE BLOOD 2024-01-10 01:52:00 Alfonso Alvarado [facility] CT CHEST PULMONARY ANGIOGRAM 2024-01-09 23:59:01 Olena Del Castillo [facility] XR CHEST 1 VW 2024-01-09 21:49:00 Olena Del Castillo [facility] TROPONIN I 2024-01-09 21:39:00 Aderibigbe, [facility] COMP. METABOLIC PANEL ([id number]) 2024-01-09 21:39:00 Abundio [facility] CBC WITH DIFF 2024-01-09 [facility]:39[facility] D-DIMER 2024-01-09 21:39:00 [facility] N-TERMINAL PRO-BNP 2024-01-09 21:39:00 Susannaitz [facility] HB ECG ROUTINE & RHYTHM STRIP 2024-01-09 21:13[facility] POCT GLUCOSE (AUTOMATED) 2023-12-15 12:43:00 Reema [facility] MAGNESIUM 2023-12-15 10:26:00 Reema [facility] TROPONIN I 2023-12-15 10:26:00 Reema [facility] BASIC METABOLIC PANEL (NA, K , CL, CO2, GLUCOSE, BUN, CREATININE, CA) 2023-12-15 10:26:00 Reema [facility] CBC WITH DIFF 2023-12-15 10:26:00 Daria [facility] N-TERMINAL PRO-BNP 2023-12-15 10:26:00 Reema [facility] TROPONIN I 2023-12-15 03:21:00 Reema [facility] FREE T4 2023-12-15 03:21:00 Reema [facility] DIGOXIN 2023-12-15 03:21:00 Daria [facility] POCT GLUCOSE (AUTOMATED) 2023-12-15 00:56:00 Reema [facility] TROPONIN I 2023-12-14 21:05:00 Mj Bryan [facility] THYROID STIMULATING HORMONE 2023-12-14 21:05:00 Reema [facility] FREE T3 2023-12-14 21:05:00 Reema [facility] XR CHEST 1 VW 2023-12-14 19:25:00 Singer [facility] TROPONIN I 2023-12-14 19:19:00 Singer [facility] COMP. METABOLIC PANEL ([id number]) 2023-12-14 19:19:00 Singer [facility] CBC WITH DIFF 2023-12-14 19:19:00 Singer [facility] D-DIMER 2023-12-14 19:19:00 Singer [facility] N-TERMINAL PRO-BNP 2023-12-14 19:19:00 Singer [facility] EKG-12 LEAD 2023-12-14 18:38:57 Tal Benavidez [facility] POCT GLUCOSE (AUTOMATED) 2023-12-03 21:23:00 Connor Renee [facility] BASIC METABOLIC PANEL (NA, K , CL, CO2, GLUCOSE, BUN, CREATININE, CA) 2023-12-03 17:58:00 Mukesh Tabor [facility] POCT GLUCOSE (AUTOMATED) 2023-12-03 16:51:00 Connor Renee [facility] POCT GLUCOSE (AUTOMATED) 2023-12-03 13:00:00 Connor Renee [facility] MAGNESIUM 2023-12-03 09:21:[address] [facility] ([id number]) (ALB,T.PRO,BILI T,BU/BC,ALT,AST,ALK PHOS) 2023-12-03 09:21:00 [facility] BASIC METABOLIC PANEL (NA, K , CL, CO2, GLUCOSE, BUN, CREATININE, CA) 2023-12-03 09:21:00 [facility] AC PANEL 21 + LACTIC ACID 2023-12-03 01:45:00 [facility] MRSA / MSSA SCREEN BY RED COKER 2023-12-03 01:45:00 [facility] CT CHEST PULMONARY ANGIOGRAM 2023-12-02 19:32:14 Connor Renee [facility] XR CHEST 1 VW 2023-12-02 19:04:00 Connor Renee [facility] BLOOD CULTURE SCREEN 2023-12-02 18:53:00 Connor Renee [facility] TROPONIN I 2023-12-02 18:53:00 Connor Renee [facility] COMP. METABOLIC PANEL ([id number]) 2023-12-02 18:53:00 Connor Renee [facility] CBC WITH DIFF 2023-12-02 18:53:00 Connor Renee [facility] RAPID INFLUENZA A/B 2023-12-02 18:53:00 Connor Renee [facility] N-TERMINAL PRO-BNP 2023-12-02 18:53:00 Connor Renee [facility] COVID-19 (ID NOW RAPID TESTING) 2023-12-02 18:53:00 Connor Renee [facility] BLOOD CULTURE SCREEN 2023-12-02 18:49:00 Connor Renee [facility] AC ABG + LACTIC ACID 2023-12-02 18:26:00 Connor Renee [facility] HB ECG ROUTINE & RHYTHM STRIP 2023-12-02 18:06:10 Connor Renee [facility] POCT GLUCOSE (AUTOMATED) 2023-11-28 16:40:00 Cr Altamirano [facility] PHOSPHORUS 2023-11-28 09:22:00 Tabor [facility] MAGNESIUM 2023-11-28 09:22:00 Tabor [facility] COMP. METABOLIC PANEL ([id number]) 2023-11-28 09:22:00 Tabor [facility] CBC WITH DIFF 2023-11-28 09:22:00 Tabor [facility] N-TERMINAL PRO-BNP 2023-11-28 09:22:00 Torery Baez [facility] POCT GLUCOSE (AUTOMATED) 2023-11-28 01:31:00 Lorenzo Ventura [facility] POCT GLUCOSE (AUTOMATED) 2023-11-27 21:45:00 Lorenzo Ventura [facility] POCT GLUCOSE (AUTOMATED) 2023-11-27 16:30:00 Lorenzo Urielrosalie [facility] POCT GLUCOSE (AUTOMATED) 2023-11-27 12:39:00 Lorenzo Ventura [facility] LACTIC ACID WHOLE BLOOD 2023-11-27 06:35:00 Tabor [facility] MAGNESIUM 2023-11-27 06:34:00 Tabor, [facility] COMP. METABOLIC PANEL ([id number]) 2023-11-27 06:34:00 Leander [facility] URINE DRUG (IMMUNOASSAY) - COMPREHENSIVE DRUG SCREEN 2023-11-27 03:59:00 Leander [facility] POCT GLUCOSE (AUTOMATED) 2023-11-27 02:25:00 Lorenzo Ventura [facility] CT HEAD WO CONTRAST 2023-11-26 21:56:31 Leander [facility] MAGNESIUM 2023-11-26 21:32:00 Leander [facility] COMP. METABOLIC PANEL ([id number]) 2023-11-26 21:32:00 Leander [facility] POCT GLUCOSE (AUTOMATED) 2023-11-26 21:11:00 Lorenzo Ventura [facility] VALPROIC ACID, FREE 2023-11-26 18:07:00 Tabor [facility] KEPPRA (LEVETIRACETAM) 2023-11-26 18:07:00 Tabor [facility] LACTIC ACID WHOLE BLOOD 2023-11-26 18:07:00 Tabor, [facility] POCT GLUCOSE (AUTOMATED) 2023-11-26 17:05:00 Lorenzo Ventura [facility] MAGNESIUM 2023-11-26 13:28:00 Raghu Castellanos [facility] VITAMIN B12, LEVEL 2023-11-26 13:28:00 Tabor [facility] FOLATE 2023-11-26 13:28:00 Leandre [facility] COMP. METABOLIC PANEL ([id number]) 2023-11-26 13:28:00 Raghu Castellanos [facility] CBC WITH DIFF 2023-11-26 13:28:00 Leander [facility] LACTIC ACID WHOLE BLOOD 2023-11-26 09:52:00 Robinson Shin [facility] POCT GLUCOSE (AUTOMATED) 2023-11-26 02:13:00 Lorenzo Hemrosalie [facility] LACTIC ACID WHOLE BLOOD 2023-11-26 00:53:00 Raghu Castellanos [facility] ELECTROENCEPHALOGRAM 2023-11-26 00:00:00 Leander [facility] POCT GLUCOSE (AUTOMATED) 2023-11-25 20:59:00 Lorenzo Ventura [facility] LACTIC ACID WHOLE BLOOD 2023-11-25 20:56:00 Raghu Castellanos [facility] MAGNESIUM 2023-11-25 20:55:00 Raghu Castellanos [facility] COMP. METABOLIC PANEL ([id number]) 2023-11-25 20:55:00 Raghu Castellanos [facility] POCT GLUCOSE (AUTOMATED) 2023-11-25 16:58:00 Lorenzo Ventura [facility] POCT GLUCOSE (AUTOMATED) 2023-11-25 13:04:00 Lorenzo Ventura [facility] LACTIC ACID WHOLE BLOOD 2023-11-25 09:25:00 Jessica [facility] MAGNESIUM 2023-11-25 09:24:00 Raghu Castellanos [facility] COMP. METABOLIC PANEL ([id number]) 2023-11-25 09:24:00 Jessica [facility] CBC WITH DIFF 2023-11-25 09:24:00 Leander [facility] MAGNESIUM 2023-11-25 04:52:00 Leander [facility] COMP. METABOLIC PANEL ([id number]) 2023-11-25 04:52:00 Tabor [facility] LACTIC ACID WHOLE BLOOD 2023-11-25 04:52:00 Leander [facility] POCT GLUCOSE (AUTOMATED) 2023-11-25 03:00:00 Lorenzo Ventura [facility] TROPONIN I 2023-11-25 02:59:00 Jessica [facility] COMP. METABOLIC PANEL ([id number]) 2023-11-25 02:59:00 Nestor Lopez [facility] HIV 1/2 AG-AB WITH REFLEX 2023-11-25 02:59[facility]AST 2023-11-24 22:24:00 Leander [facility] POCT GLUCOSE (AUTOMATED) 2023-11-24 21:21:00 Lorenzo Ventura [facility] MAGNESIUM 2023-11-24 21:08:00 Leander [facility] COMP. METABOLIC PANEL ([id number]) 2023-11-24 21:08:00 Tabor, [facility] LACTIC ACID WHOLE BLOOD 2023-11-24 21:08:00 Jessica [facility] POCT GLUCOSE (AUTOMATED) 2023-11-24 17:43:00 Lorenzo Ventura [facility] POCT GLUCOSE (AUTOMATED) 2023-11-24 17:43:00 Lorenzo Ventura [facility] MAGNESIUM 2023-11-24 15:47:00 Leander [facility] COMP. METABOLIC PANEL ([id number]) 2023-11-24 15:47:00 Tabor [facility] ACTIVATED PARTIAL THRMPLAS DAVID 2023-11-24 15:47[facility] 2023-11-24 15:47:00 Tabor [facility] MAGNESIUM 2023-11-24 15:47:00 Tabor, [facility] COMP. METABOLIC PANEL ([id number]) 2023-11-24 15:47:00 Tabor [facility] ACTIVATED PARTIAL THRMPLAS DAVID 2023-11-24 15:47:00 Uli [facility] LACTIC ACID WHOLE BLOOD 2023-11-24 15:47:00 Tabor, [facility] POCT GLUCOSE (AUTOMATED) 2023-11-24 12:33:00 Lorenzo Ventura [facility] POCT GLUCOSE (AUTOMATED) 2023-11-24 12:33:00 Lorenzo Hemrosalie [facility] MAGNESIUM 2023-11-24 10:03:00 Tabor, [facility] COMP. METABOLIC PANEL ([id number]) 2023-11-24 10:03:00 Tabor, [facility] CBC WITH DIFF 2023-11-24 10:03:00 Tabor, [facility] LACTIC ACID WITH 3 HOUR REFLEX 2023-11-24 10:03:00 Tabor, [facility] MAGNESIUM 2023-11-24 10:03:00 Tabor, [facility] COMP. METABOLIC PANEL ([id number]) 2023-11-24 10:03:00 Tabor, [facility] CBC WITH DIFF 2023-11-24 10:03:00 Tabor, [facility] LACTIC ACID WITH 3 HOUR REFLEX 2023-11-24 10:03:00 Leander, [facility] ACTIVATED PARTIAL THRMPLAS DAVID 2023-11-24 06:13:00 [facility] ACTIVATED PARTIAL THRMPLAS DAVID 2023-11-24 06:13:00 [facility] POCT GLUCOSE (AUTOMATED) 2023-11-24 03:15:00 Lorenzo Hemrosalie [facility] POCT GLUCOSE (AUTOMATED) 2023-11-24 03:15:00 Lorenzo Hemrosalie [facility] ACTIVATED PARTIAL THRMPLAS DAVID 2023-11-23 23:09:00 [facility] ACTIVATED PARTIAL THRMPLAS DAVID 2023-11-23 23:09:00 [facility] POCT GLUCOSE (AUTOMATED) 2023-11-23 21:28:00 Lorenzo Hemrosalie [facility] POCT GLUCOSE (AUTOMATED) 2023-11-23 21:28:00 Lorenzo Ventura [facility] CATH PROCEDURE LOG 2023-11-23 20:38:36 [facility] CATH PROCEDURE LOG 2023-11-23 20:38:36 [facility] CARDIAC CATHETERIZATION 2023-11-23 20:11:00 [facility] CARDIAC CATHETERIZATION 2023-11-23 20:11:00 [facility] CARDIAC CATHETERIZATION 2023-11-23 20:11:00 [facility] CARDIAC CATHETERIZATION 2023-11-23 20:11:00 [facility] POCT GLUCOSE (AUTOMATED) 2023-11-23 17:18:00 Lorenzo Ventura [facility] POCT GLUCOSE (AUTOMATED) 2023-11-23 17:18:00 Lorenzo Ventura [facility] POCT GLUCOSE (AUTOMATED) 2023-11-23 16:50:00 [facility]) 2023-11-23 16:50:00 Lorenzo Ventura [facility] ACTIVATED PARTIAL THRMPLAS DAVID 2023-11-23 15:13:00 [facility] ACTIVATED PARTIAL THRMPLAS DAVID 2023-11-23 15:13:00 [facility] LACTIC ACID WHOLE BLOOD 2023-11-23 15:12:00 [facility] 2023-11-23 15:12:00 Robinson Shin [facility] POCT GLUCOSE (AUTOMATED) 2023-11-23 12:47:00 Lorenzo Ventura [facility] POCT GLUCOSE (AUTOMATED) 2023-11-23 12:47:00 Lorenzo Ventura [facility] MAGNESIUM 2023-11-23 07:52:00 Janeth Gil [facility] HEPATIC FUNCTION PANEL (25986) (ALB,T.PRO,BILI T,BU/BC,ALT,AST,ALK PHOS) 2023-11-23 07:52:00 Leander [facility] BASIC METABOLIC PANEL (NA, K , CL, CO2, GLUCOSE, BUN, CREATININE, CA) 2023-11-23 07:52:00 Khoot [facility] CBC WITH DIFF 2023-11-23 07:52:00 Khoot, [facility] ACTIVATED PARTIAL THRMPLAS DAVID 2023-11-23 07:52:00 [facility] 2023-11-23 07:52:00 Aleida [facility] MAGNESIUM 2023-11-23 07:52:00 Khiont [facility] HEPATIC FUNCTION PANEL ([id number]) (ALB,T.PRO,BILI T,BU/BC,ALT,AST,ALK PHOS) 2023-11-23 07:52:00 Leander [facility] BASIC METABOLIC PANEL (NA, K , CL, CO2, GLUCOSE, BUN, CREATININE, CA) 2023-11-23 07:52:00 Louise [facility] CBC WITH DIFF 2023-11-23 07:52:00 Tyet [facility] ACTIVATED PARTIAL THRMPLAS DAVID 2023-11-23 07:52:00 [facility] 2023-11-23 07:52:00 Aleida [facility] LACTIC ACID WHOLE BLOOD 2023-11-23 05:00:00 Aleida [facility] LACTIC ACID WHOLE BLOOD 2023-11-23 05:00:00 Aleida [facility] LACTIC ACID WHOLE BLOOD 2023-11-23 03:12:00 Aleida [facility] LACTIC ACID WHOLE BLOOD 2023-11-23 03:12:00 Aleida [facility] LACTIC ACID WHOLE BLOOD 2023-11-23 00:57:00 Aleida [facility] LACTIC ACID WHOLE BLOOD 2023-11-23 00:57:00 Aleida [facility] POCT GLUCOSE (AUTOMATED) 2023-11-23 00:56:00 Lorenzo Ventura [facility] POCT GLUCOSE (AUTOMATED) 2023-11-23 00:56:00 Lorenzo Ventura [facility] LACTIC ACID WHOLE BLOOD 2023-11-22 23:49:00 Robinson Shin [facility] LACTIC ACID WHOLE BLOOD 2023-11-22 23:49:00 Robinson Shin [facility] POCT GLUCOSE (AUTOMATED) 2023-11-22 21:49:00 Lorenzo Hemrosalie [facility] POCT GLUCOSE (AUTOMATED) 2023-11-22 21:49:00 Lorenzo Sissydianna [facility] LACTIC ACID WHOLE BLOOD 2023-11-22 21:41:00 Leander [facility] LACTIC ACID WHOLE BLOOD 2023-11-22 21:41:00 Leander [facility] POCT GLUCOSE (AUTOMATED) 2023-11-22 21:01:00 Lorenzo Audrey [facility] POCT GLUCOSE (AUTOMATED) 2023-11-22 21:01:00 Lorenzo Sissydianna [facility] ACTIVATED PARTIAL THRMPLAS DAVID 2023-11-22 19:46:00 [facility] LACTIC ACID WHOLE BLOOD 2023-11-22 19:46:00 Leander [facility] ACTIVATED PARTIAL THRMPLAS DAVID 2023-11-22 19:46:00 [facility] LACTIC ACID WHOLE BLOOD 2023-11-22 19:46:00 Leander [facility] LACTIC ACID WHOLE BLOOD 2023-11-22 17:22:00 Faby [facility] LACTIC ACID WHOLE BLOOD 2023-11-22 17:22:00 Faby [facility] POCT GLUCOSE (AUTOMATED) 2023-11-22 17:00:00 [facility]) 2023-11-22 17:00:00 Madeline Pierre [facility] LOWER EXTREMITY ARTERIAL DUPLEX BILATERAL - BY VASCULAR LAB 2023-11-22 16:43:47 Faby [facility] LOWER EXTREMITY ARTERIAL DUPLEX BILATERAL - BY VASCULAR LAB 2023-11-22 16:43:47 Faby [facility] TRANSTHORACIC ECHO (TTE) COMPLETE W/ CONTRAST 2023-11-22 15:50:00 [facility] TRANSTHORACIC ECHO (TTE) COMPLETE W/ CONTRAST 2023-11-22 15:50:00 [facility] 2023-11-22 14:54:18 Faby [facility] US ABDOMEN LIMITED 2023-11-22 14:54:18 Faby [facility] HB ECG ROUTINE & RHYTHM STRIP 2023-11-22 14:28:42 Louise [facility] HB ECG ROUTINE & RHYTHM STRIP 2023-11-22 14:28:42 Louise [facility] COMP. METABOLIC PANEL ([id number]) 2023-11-22 14:26:00 [facility] IRON PANEL 2023-11-22 14:26:00 [facility] LACTIC ACID WHOLE BLOOD 2023-11-22 14:26:00 Faby [facility] COMP. METABOLIC PANEL ([id number]) 2023-11-22 14:26:00 [facility] IRON PANEL 2023-11-22 14:26:00 [facility] LACTIC ACID WHOLE BLOOD 2023-11-22 14:26:00 Faby [facility] POCT GLUCOSE (AUTOMATED) 2023-11-22 13:26:00 [facility]SE ([facility]OMATED) 2023-11-22 13:26:00 Madeline Pierre [facility] CT CHEST PULMONARY ANGIOGRAM 2023-11-22 13:10:36 [facility] CT CHEST PULMONARY ANGIOGRAM 2023-11-22 13:10:36 [facility] PHOSPHORUS 2023-11-22 11:45:00 [facility] CREATINE KINASE 2023-11-22 11:45:00 [facility] F[facility] 2023-11-22 11:45:00 [facility] TROPONIN I 2023-11-22 11:45:00 [facility] LIPID PANEL ([id number])(TOTAL CHOLESTEROL, TRIGLYCERIDES, HDL) 2023-11-22 11:45:00 [facility] CBC WITH DIFF 2023-11-22 11:45:00 [facility] GLYCOSYLATED HEMOGLOBIN (A1C) 2023-11-22 11:45:00 [facility] PHOSPHORUS 2023-11-22 11:45:00 [facility] CREATINE KINASE 2023-11-22 11:45:00 Louise [facility] FERRITIN SERUM 2023-11-22 11:45:00 [facility] TROPONIN I 2023-11-22 11:45:00 [facility] LIPID PANEL ([id number])(TOTAL CHOLESTEROL, TRIGLYCERIDES, HDL) 2023-11-22 11:45:00 [facility] CBC WITH DIFF 2023-11-22 11:45:00 [facility] GLYCOSYLATED HEMOGLOBIN (A1C) 2023-11-22 11:45:00 [facility] BLOOD CULTURE SCREEN 2023-11-22 09:37:00 [facility] BLOOD CULTURE SCREEN 2023-11-22 09:37:00 [facility] BLOOD CULTURE SCREEN 2023-11-22 09:36:00 [facility] BLOOD CULTURE SCREEN 2023-11-22 09:36:00 Uli [facility] LOWER EXTREMITY VEIN WITH COMPRESSION BILATERAL (ONLY FOR RULE OUT DVT) 2023-11-22 08:09:01 Uli [facility] LOWER EXTREMITY VEIN WITH COMPRESSION BILATERAL (ONLY FOR RULE OUT DVT) 2023-11-22 08:09:01 [facility] LACTIC ACID WHOLE BLOOD 2023-11-22 08:03:00 [facility]li[facility] LACTIC ACID WHOLE BLOOD 2023-11-22 08:03:00 [facility]li, [facility] MAGNESIUM 2023-11-22 08:02:00 [facility] TROPONIN I 2023-11-22 08:02:00 [facility] PROTHROMBIN TIME / INR 2023-11-22 08:02:00 [facility] D-DIMER 2023-11-22 08:02:00 [facility]li, [facility] ACTIVATED PARTIAL THRMPLAS DAVID 2023-11-22 08:02:00 [facility]li [facility] PROCALCITONIN 2023-11-22 08:02:00 [facility] MAGNESIUM 2023-11-22 08:02:00 [facility] TROPONIN I 2023-11-22 08:02:00 [facility]li, [facility] PROTHROMBIN TIME / INR 2023-11-22 08:02:00 Uli, [facility] D-DIMER 2023-11-22 08:02:00 Uli, [facility] ACTIVATED PARTIAL THRMPLAS DAVID 2023-11-22 08:02:00 [facility] PROCALCITONIN 2023-11-22 08:02:00 [facility] XR SHOULDER 2+ VW RIGHT 2023-11-22 07:33:00 [facility] XR SHOULDER 2+ VW RIGHT 2023-11-22 07:33:00 [facility] URINALYSIS 2023-11-22 04:33:00 Megan Rondon [facility] URINE DRUG (IMMUNOASSAY) - COMPREHENSIVE DRUG SCREEN W/O REFLEX 2023-11-22 04:33:00 Megan Rondon [facility] URINALYSIS 2023-11-22 04:33:00 Megan Rondon [facility] URINE DRUG (IMMUNOASSAY) - COMPREHENSIVE DRUG SCREEN W/O REFLEX 2023-11-22 04:33:00 Megan Rondon [facility] PROTHROMBIN TIME / INR 2023-11-22 04:25:00 Megan Rondon [facility] ACTIVATED PARTIAL THRMPLAS DAVID 2023-11-22 04:25:00 Megan Rondon [facility] PROTHROMBIN TIME / INR 2023-11-22 04:25:00 Megan Rondon [facility] ACTIVATED PARTIAL THRMPLAS DAVID 2023-11-22 04:25:00 Megan Rondon [facility] CRITICAL CARE 2023-11-22 04:18:14 Megan Rondon [facility] CRITICAL CARE 2023-11-22 04:18:14 [facility] 2023-11-22 02:57:00 [facility] THYRO[facility]IM[facility]ATING HORMONE 2023-11-22 02:57:00 [facility] RAPID INFLUENZA A/B 2023-11-22 02:57:00 Alcon [facility] COVID-19 (ID NOW RAPID TESTING) 2023-11-22 02:57:00 Alcon [facility] LAB ONLY COVID INTERPRETATION 2023-11-22 02:57:00 [facility] 2023-11-22 02:57:00 [facility] THYROID STIMULATING HORMONE 2023-11-22 02:57:00 [facility] RAPID INFLUENZA A/B 2023-11-22 02:57:00 [facility] COVID-[facility] (ID NOW RAPID TESTING) 2023-11-22 02:57:00 [facility] LAB ONLY COVID INTERPRETATION 2023-11-22 02:57:00 Megan Rondon [facility] AMYLASE 2023-11-22 02:52:00 Megan Rondon [facility] LIPASE 2023-11-22 02:52:00 Megan Rondon [facility] TROPONIN I 2023-11-22 02:52:00 [facility] COMP. METABOLIC PANEL ([id number]) 2023-11-22 02:52:00 Megan Rondon [facility] CBC WITH DIFF 2023-11-22 02:52:00 [facility] N-TERMINAL PRO-BNP 2023-11-22 02:52:00 Megan Rondon [facility] AMYLASE 2023-11-22 02:52:00 Megan Rondon [facility] LIPASE 2023-11-22 02:52:00 Megan Rondon [facility] TROPONIN I 2023-11-22 02:52:00 [facility] COMP. METABOLIC PANEL ([id number]) 2023-11-22 02:52:00 [facility] CBC WITH DIFF 2023-11-22 02:52:00 [facility] N-TERMINAL PRO-BNP 2023-11-22 02:52:00 [facility] X[facility] CHEST 1 VW 2023-11-22 02:34:13 [facility] X[facility] CHEST 1 VW 2023-11-22 02:34:13 [facility] HB ECG ROUTINE & RHYTHM STRIP 2023-11-22 02:16:24 [facility] DOC[facility] 2023-11-18 18:34:06 Doctor Unassigned, [place] [facility] RADIOLOGY DOCUMENTATION 2023-11-05 19:18:01 Doctor Unassigned, [place] [facility] POCT-GLUCOSE METER 2023-09-08 08:40:00 Bud [facility] CBC W/PLT COUNT & AUTO DIFFERENTIAL 2023-09-08 04:16:00 [facility]OL[facility] 2023-09-08 04:16:00 [facility] MAGNESIUM 2023-09-08 04:16:00 [facility] 2023-09-08 04:16:00 [facility] CBC W/PLT COUNT & AUTO DIFFERENTIAL 2023-09-08 04:16:00 [facility] POCT-GLUCOSE METER 2023-09-07 21:29:00 Bud [facility] XR KNEE 3 VIEWS LEFT 2023-09-07 19:21:02 Bud [facility] VENOUS DOPPLER LEGS BILATERAL 2023-09-07 12:45:00 Joshua [facility] CBC W/PLT COUNT & AUTO DIFFERENTIAL 2023-09-07 03:17:00 Joshua [facility] BASIC METABOLIC PANEL 2023-09-07 03:17:00 Joshua [facility] MAGNESIUM 2023-09-07 03:17:00 Joshua [facility] PHOSPHORUS 2023-09-07 03:17:00 Joshua [facility] CBC W/PLT COUNT & AUTO DIFFERENTIAL 2023-09-07 03:17:00 Joshua [facility] POCT-GLUCOSE METER 2023-09-06 21:17:00 Bud [facility] POCT-GLUCOSE METER 2023-09-06 18:37:00 Bud [facility] POCT-GLUCOSE METER 2023-09-06 13:16:00 Bud [facility] POCT-GLUCOSE METER 2023-09-06 08:21:00 Bud [facility] CBC W/PLT COUNT & AUTO DIFFERENTIAL 2023-09-06 04:49:00 Joshua [facility] BASIC METABOLIC PANEL 2023-09-06 04:49:00 Joshua [facility] MAGNESIUM 2023-09-06 04:49:00 Joshua [facility] PHOSPHORUS 2023-09-06 04:49:00 Joshua [facility] CBC W/PLT COUNT & AUTO DIFFERENTIAL 2023-09-06 04:49:00 Joshua [facility] POCT-GLUCOSE METER 2023-09-05 21:24:00 Bud [facility] MR BRAIN WITH & WITHOUT IV CONTRAST 2023-09-05 11:25:07 Sandi Aleman [facility] POCT-GLUCOSE METER 2023-09-05 08:10:00 Bud [facility] CBC W/PLT COUNT & AUTO DIFFERENTIAL 2023-09-05 04:44:00 Joshua [facility] BASIC METABOLIC PANEL 2023-09-05 04:44:00 Joshua [facility] MAGNESIUM 2023-09-05 04:44:00 Joshua [facility] PHOSPHORUS 2023-09-05 04:44:00 Joshua [facility] POCT-GLUCOSE METER 2023-09-05 04:44:00 Lisandra [facility] CBC W/PLT COUNT & AUTO DIFFERENTIAL 2023-09-05 04:44:00 Joshua [facility] POCT-GLUCOSE METER 2023-09-04 21:38:00 Lisandra [facility] POCT-GLUCOSE METER 2023-09-04 15:42:00 [facility] SARS-COV2/INFLUENZA/RSV RT-PCR 2023-09-04 11:25:00 [facility]li [facility] POCT-GLUCOSE METER 2023-09-04 10:53:00 Sabas [facility] POCT-GLUCOSE METER 2023-09-04 08:04:00 Sabas [facility] PROCALCITONIN 2023-09-04 06:56:00 [facility] IRON, TIBC, % SAT. (WITHOUT FERRITIN) 2023-09-04 06:56:00 [facility] FERRITIN 2023-09-04 06:56:00 [facility] BLOOD CULTURE 2023-09-04 06:37:00 [facility] WITHOUT IV CONTRAST 2023-09-04 05:47:25 [facility] MR THORACIC SPINE WITHOUT IV CONTRAST 2023-09-04 04:53:00 Mel[facility] MR CERVICAL SPINE WITHOUT IV CONTRAST 2023-09-04 04:18:[address] [facility] [address] THORACIC SPINE WITHOUT IV CONTRAST 2023-09-04 03:08:00 Randall [facility] CT LUMBAR SPINE WITHOUT IV CONTRAST 2023-09-04 03:08:00 RandallJorge [facility] LACTIC ACID, VENOUS 2023-09-04 01:42:00 [place] [facility] TYPE AND SCREEN, AUTOMATED 2023-09-04 01:42:00 [place] [facility] CBC W/PLT COUNT & AUTO DIFFERENTIAL 2023-09-04 00:51:00 Melvi [facility] COMPREHENSIVE METABOLIC PANEL 2023-09-04 00:51:00 Melvi [facility] MAGNESIUM 2023-09-04 00:51:00 Mel[facility] PHOSPHORUS 2023-09-04 00:51:00 Mel[facility] PROTHROMBIN TIME/INR 2023-09-04 00:51:00 Mel[facility] APTT 2023-09-04 00:51:00 Mel[facility] B-TYPE NATRIURETIC FACTOR (BNP) 2023-09-04 00:51:00 Mel[facility] URINALYSIS WITHOUT MICROSCOPIC 2023-09-04 00:51:00 Mel[facility] RAPID DRUG SCREEN, URINE 2023-09-04 00:51:00 Mel[facility] D-DIMER 2023-09-04 00:51:00 London Loyola [facility] FIBRINOGEN 2023-09-04 00:51:00 [facility] W/[facility]T COUNT & AUTO DIFFERENTIAL 2023-09-04 00:51:00 [facility] EKG-SCANNED 2023-09-04 00:00:00 Eliceo Montanez [facility] LACTIC ACID WHOLE BLOOD 2023-08-12 20:31:00 Mj Bryan [facility] COMP. METABOLIC PANEL ([id number]) 2023-08-12 20:29:00 Mj Bryan [facility] CBC WITH DIFF 2023-08-12 20:29:00 Mj Bryan [facility] CONSENT/REFUSAL FOR DIAGNOSI S AND TREATMENT 2023-08-12 19:43:16 Doctor Unassigned, [place] [facility] TRANSESOPHAGEAL ECHO 2023-06-16 11:05:00 Abbi [facility] T SPOT TB 2023-06-15 04:51:00 Filiberto Blairdc Raul [facility] FUNGITELL R B-D-GLUCAN WITH REFLEX TO TITER 2023-06-15 04:51[facility]00 [facility] GALACTOMANNAN [facility]TIGEN 2023-06-15 04:51:00 Filiberto Blairdc Raul [facility] VANCOMYCIN LEVEL, TROUGH 2023-06-15 04:51:00 Kaylene Mendosa [facility] T-SPOT(R).TB (QUEST) 2023-06-15 04:27:00 Provider, Not In System [facility] T-SPOT(R).TB (QUEST) 2023-06-15 04:27:00 System, Provider Not In [facility] ECHO W CONTRAST & DOPPLER 2023-06-14 09:22:00 [facility] HEMOGLOBIN A1C 2023-06-14 04:08:00 Marianela Burgess [facility] CBC (HEMOGRAM ONLY) 2023-06-14 04:08:00 [facility] BASIC METABOLIC PANEL 2023-06-14 04:08:00 Torrey [facility] CRYPTOCOCCAL ANTIGEN 2023-06-13 17:21:00 Lauren Blair [facility] HC LAB HIV-1 AG W/HIV-1&2 AB 2023-06-13 17:21:00 Rossy deisydc Raul [facility] VENOUS DOPPLER ARM, LEFT 2023-06-13 17:20:00 Marianela Burgess [facility] LEGIONELLA ANTIGEN, URINE 2023-06-13 17:00:00 Abbi [facility] SPUTUM CULTURE + GRAM STAIN 2023-06-13 14:33:00 Ari, [facility] MR LUMBAR SPINE WITH & WITHOUT IV CONTRAST 2023-06-13 13:03:47 Burt Nelson [facility] ECG 12-LEAD 2023-06-13 11:47:02 Arimike, [facility] ECG 12-LEAD 2023-06-13 11:47:02 Unknown, Hl7 Doctor [facility] MRSA SCREEN 2023-06-13 09:19:00 [facility], [facility] CBC W/PLT COUNT & AUTO DIFFERENTIAL 2023-06-13 06:03:00 [facility] COMPREHENSIVE METABOLIC PANEL 2023-06-13 06:03:00 DodieMarianela richardson [facility] PROTHROMBIN TIME/INR 2023-06-13 06:03:00 [facility] CREATINE KINASE (CK) 2023-06-13 06:03:00 [facility] CBC W/PLT COUNT & AUTO DIFFERENTIAL 2023-06-13 06:03:00 [facility] BLOOD CULTURE 2023-06-13 06:02:00 Marianela Burgess [facility] CBC W/PLT COUNT & AUTO DIFFERENTIAL 2023-06-02 04:41:00 Sunil Chu [facility] BASIC METABOLIC PANEL 2023-06-02 04:41:00 uSnil Chu [facility] MAGNESIUM 2023-06-02 04:41:00 Sunil Chu [facility] PHOSPHORUS 2023-06-02 04:41:00 Sunil Chu [facility] CBC W/PLT COUNT & AUTO DIFFERENTIAL 2023-06-02 04:41:00 Sunil Chu [facility] XR SPINE LUMBAR 1 VIEW 2023-06-01 10:31:00 Laurel [facility] XR SPINE LUMBAR 1 VIEW 2023-06-01 09:46:00 Laurel [facility] LAMINECTOMY, SPINE, LUMBAR 2023-06-01 09:10:00 [facility] PROCEDURE W/ C-ARM 2023-06-01 09:10:00 [facility] LAMINECTOMY, SPINE, LUMBAR 2023-06-01 07:30:00 [facility] PROCEDURE W/ C-ARM 2023-06-01 07:30:00 Laurel [facility] SCREEN, URINE 2023-06-01 04:33:00 [facility] BASIC METABOLIC PANEL 2023-05-31 22:55:00 Patricia [facility] CBC W/PLT COUNT & AUTO DIFFERENTIAL 2023-05-31 22:55:00 Patricia [facility] PT/APTT 2023-05-31 22:55:00 Patricia [facility] CBC W/PLT COUNT & AUTO DIFFERENTIAL 2023-05-31 22:55:00 Dallas Gomez [facility] CT NECK SOFT TISSUE WITHOUT IV CONTRAST 2023-05-31 09:39:30 [facility] TYPE AND SCREEN, AUTOMATED 2023-05-31 09:13:00 [facility] BASIC METABOLIC PANEL 2023-05-29 06:43:00 [facility] CBC W/PLT COUNT & AUTO DIFFERENTIAL 2023-05-29 06:43:00 [facility] CBC W/PLT COUNT & AUTO DIFFERENTIAL 2023-05-29 06:43:00 [facility] XR SPINE CERVICAL 2 OR 3 VIEWS 2023-05-28 18:57:00 [facility] FL FLUORO NON-SPECIFIC UP TO 1 HOUR 2023-05-28 10:48:00 [facility] [place] FLUORO NON-SPECIFIC UP TO 1 HOUR 2023-05-28 10:07:00 [facility] DISCECTOMY, SPINE, CERVICAL, ANTERIOR APPROACH, WITH FUSION 2023-05-28 08:15:00 Jose [facility] INSERTION, HARDWARE, SPINAL 2023-05-28 08:15:00 Jose [facility] PROCEDURE, ALLOGRAFT, FOR SPINE SURGERY 2023-05-28 08:15:00 Jose [facility] AUTOGRAFT FOR SPINE SURGERY 2023-05-28 08:15:00 Adam Garcia [facility] PROCEDURE W/ C-ARM 2023-05-28 08:15:00 Jose [facility] NEUROPHYSIOLOGIC MONITORING, INTRAOPERATIVE 2023-05-28 08:15:00 Laurel [facility] PROCEDURE, USING OPERATING MICROSCOPE 2023-05-28 08:15:00 Laurel [facility] HCG, QUANTITATIVE, 2023-05-28 07:42:00 Yue Bui [facility] TYPE AND SCREEN, AUTOMATED 2023-05-28 07:42:00 Quin Scruggs [facility] XR CHEST 1 VIEW PORTABLE / BEDSIDE 2023-04-01 15:32:16 Thomas Lozoya [facility] B-TYPE NATRIURETIC FACTOR (BNP) 2023-04-01 13:32:00 Thomas [place]oz[place] [facility] & DOPPLER 2023-03-31 20:18:37 Jasen [facility] MR CERVICAL SPINE WITHOUT IV CONTRAST 2023-03-31 09:25:00 Edward Lewis [facility] CBC (HEMOGRAM ONLY) 2023-03-31 03:45:00 Jasen [facility] COMPREHENSIVE METABOLIC PANEL 2023-03-31 03:45:00 Jasen [facility] ARTERIAL DOPPLER LEGS BILATERAL 2023-03-30 15:45:00 Jasen [facility] ARTERIAL (ALEISHA'S W/ DOPPLER) ONLY 2023-03-30 15:44:00 Jasen [facility] ECG 12-LEAD 2023-03-30 13:06:22 Jasen [facility] ECG 12-LEAD 2023-03-30 13:06:22 Unknown, Hl7 [facility] MR THORACIC SPINE WITHOUT IV CONTRAST 2023-03-30 12:29:58 Eric [facility] MR LUMBAR SPINE WITHOUT IV CONTRAST 2023-03-30 [facility] 2023-03-30 09:57:53 [facility] VALPROIC ACID LEVEL, TOTAL 2023-03-30 09:06:00 [facility] URINALYSIS W/ REFLEX URINE CULTURE 2023-03-30 03:54:00 Eric [facility] CBC (HEMOGRAM ONLY) 2023-03-30 03:52[facility] COMPREHENSIVE METABOLIC PANEL 2023-03-30 03:52:00 [facility] HEMOGLOBIN A1C 2023-03-30 03:52:00 [facility] PT/APTT 2023-03-30 03:52:00 Thomas Lozoya [facility] EKG-SCANNED 2023-03-29 00:00:00 Provider, Default Scanning [facility] CT HEAD WO CONTRAST 2022-12-11 18:36:49 Alfonso Alvarado [facility] URINE DRUG (IMMUNOASSAY) - COMPREHENSIVE DRUG SCREEN 2022-12-11 17:13:00 Alfonso Alvarado [facility] URINALYSIS 2022-12-11 17:13:00 Alfonso Alvarado [facility] CT CHEST PULMONARY ANGIOGRAM 2022-12-11 16:26:39 Alfonso Alvarado [facility] MAGNESIUM 2022-12-11 14:57:00 Alfonso Alvarado [facility] COMP. METABOLIC PANEL ([id number]) 2022-12-11 14:57:00 Alfonso Alvarado [facility] D-DIMER 2022-12-11 14:15:00 Alfonso Alvarado [facility] XR CHEST 1 VW 2022-12-11 14:10:26 Alfonso Alvarado [facility] TROPONIN I 2022-12-11 14:02:00 Alfonso Alvarado [facility] CBC WITH DIFF 2022-12-11 14:02:00 Alfonso Alvarado [facility] N-TERMINAL PRO-BNP 2022-12-11 14:02:00 Alfonso Alvarado [facility] HB ECG ROUTINE & RHYTHM STRIP 2022-12-11 14:01:08 Alfonso Alvarado Lorelei [facility] CONSENT/REFUSAL FOR DIAGNOSI S AND TREATMENT 2022-12-11 13:52:01 Doctor Unassigned, [place] [facility] ECG 12-LEAD 2022-08-03 05:03:32 Unknown, Hl7 [facility] ECG 12-LEAD 2022-08-03 05:03:32 Unknown, Hl7 [facility] LIPID PANEL 2022-08-02 21:14:00 [facility]FREE T4 IF INDICATED 2022-08-02 21:14:00 [facility] VIT[facility] B12 2022-08-02 21:14:00 [facility] HEMOGLOBIN A1C 2022-08-02 21:14:00 [facility] COMPREHENSIVE METABOLIC PANEL 2022-08-02 21:14:00 [facility] CBC W/PLT COUNT & AUTO DIFFERENTIAL 2022-08-02 21:14:00 [facility] RPR 2022-08-02 21:14:00 [facility] HC LAB HIV-1 AG W/HIV-1&2 AB 2022-08-02 21:14:00 [facility] C-REACTIVE PROTEIN 2022-08-02 21:14:00 [facility] CBC W/PLT COUNT & AUTO DIFFERENTIAL 2022-08-02 21:14:00 [facility] EKG-SCANNED 2022-08-02 00:00:00 Provider, Default Scanning [facility] CT HEAD WO CONTRAST 2022-08-01 23:52:15 Dami Lowry [facility] GALV ONLY - INFLUENZA A B RS V PCR 2022-08-01 18:28:00 Letitia Chambers [facility] TRANSTHORACIC ECHO (TTE) COMPLETE W/ CONTRAST 2022-08-01 14:42:00 Kylee Montez [facility] MAGNESIUM 2022-08-01 10:42:00 Dami Lowry [facility] BASIC METABOLIC PANEL (NA, K , CL, CO2, GLUCOSE, BUN, CREATININE, CA) 2022-08-01 10:42:00 [facility] CBC WITH DIFF 2022-08-01 10:42:00 [facility] N-TERMINAL PRO-BNP 2022-08-01 10:42:00 [facility] 2022-08-01 06:56:00 Dami Lowry [facility] CRITICAL CARE 2022-07-31 22:31:36 [facility]con [facility] URINALYSIS 2022-07-31 20:52:00 [facility] URINE DRUG (IMMUNOASSAY) - COMPREHENSIVE DRUG SCREEN W/O REFLEX 2022-07-31 20:52:00 [facility]con [facility] XR CHEST 1 VW 2022-07-31 18:45:17 Alcon Megan [facility] LIPASE 2022-07-31 17:58:00 Alcon [facility] TROPONIN I 2022-07-31 17:58:00 Alcon [facility] COMP. METABOLIC PANEL ([id number]) 2022-07-31 17:58:00 Alcon [facility] CBC WITH DIFF 2022-07-31 17:58:00 Alcon [facility] PROTHROMBIN TIME / INR 2022-07-31 17:58:00 Alcon [facility] ACTIVATED PARTIAL THRMPLAS DAVID 2022-07-31 17:58:00 [facility]con [facility] N-TERMINAL PRO-BNP 2022-07-31 17:58:00 Megan Rondon [facility] HB ECG ROUTINE & RHYTHM STRIP 2022-07-31 17:46:28 Megan Rondon [facility] NOTICE OF PRIVACY PRACTICES 2022-07-31 17:35:38 Doctor Unassigned, [place] [facility] CONSENT/REFUSAL FOR DIAGNOSI S AND TREATMENT 2022-07-31 17:35:13 Doctor Unassigned, [place] [facility] PHOSPHORUS 2022-05-08 05:51:00 Shefali Azeem [facility] MAGNESIUM 2022-05-08 05:51:00 Shefali [facility] BASIC METABOLIC PANEL (NA, K , CL, CO2, GLUCOSE, BUN, CREATININE, CA) 2022-05-08 05:51:00 Shefali [facility] CBC WITH DIFF 2022-05-08 05:51:00 Shefali [facility] BASIC METABOLIC PANEL (NA, K , CL, CO2, GLUCOSE, BUN, CREATININE, CA) 2022-05-07 07:09:00 John Cintron [facility] CBC WITH DIFF 2022-05-07 07:09:00 John Cintron [facility] POCT GLUCOSE (AUTOMATED) 2022-05-07 01:16:00 Brandyn Ibrahim [facility] HB ABO GROUPING 2022-05-06 05:07:00 Ismael Dunn [facility] BASIC METABOLIC PANEL (NA, K , CL, CO2, GLUCOSE, BUN, CREATININE, CA) 2022-05-06 05:04:00 Shefali [facility] CBC WITH DIFF 2022-05-06 05:04:00 Shefali [facility] KEPPRA (LEVETIRACETAM) 2022-05-06 05:04:00 Shefali [facility] MR LUMBAR SPINE WO CONTRAST 2022-05-06 02:54:37 Ender Monet [facility] ELECTROENCEPHALOGRAM 2022-05-06 00:00:00 John Cintron [facility] BASIC METABOLIC PANEL (NA, K , CL, CO2, GLUCOSE, BUN, CREATININE, CA) 2022-05-05 07:57[facility]00 [facility] 2022-05-05 07:57:00 Ismael Dunn [facility] PROTHROMBIN TIME / INR 2022-05-05 07:57:00 Ismael Dunn [facility] ACTIVATED PARTIAL THRMPLAS DAVID 2022-05-05 07:57:00 [facility] 2022-05-05 07:57:00 Shaun Mu-Ism [facility] EMERGENCY SERVICES AGREEMENT S AND AUTHORIZATIONS 2022-05-04 05:01:00 Doctor Unassigned, [place] [facility] VITAMIN D, 25-OH 2022-04-15 16:53:00 Sen Toledo [facility] MR THORACIC SPINE WO CONTRAST 2022-04-15 11:56:19 [facility] MR CERVICAL SPINE WO CONTRAST 2022-04-15 11:20:00 [facility] BASIC METABOLIC PANEL (NA, K , CL, CO2, GLUCOSE, BUN, CREATININE, CA) 2022-04-15 10:36:00 Charmaine Morataya [facility] TEST, URINE 2022-04-15 04:39:00 [facility] URINE DRUG (IMMUNOASSAY) - COMPREHENSIVE DRUG SCREEN 2022-04-15 04:39:00 [facility] URINALYSIS 2022-04-15 04:39:00 [facility] TRANSTHORACIC ECHO (TTE) COMPLETE W/ CONTRAST 2022-04-14 16:37:03 [facility] KEPPRA (LEVETIRACETAM) 2022-04-14 15:30:00 [facility]arsh[facility] MAGNESIUM 2022-04-14 10:03:00 [facility] BASIC METABOLIC PANEL (NA, K , CL, CO2, GLUCOSE, BUN, CREATININE, CA) 2022-04-14 10:03:00 [facility]arsh[facility] MR LUMBAR SPINE WO CONTRAST 2022-04-14 02:48:12 [facility] MR STROKE BRAIN WO CONTRAST 2022-04-14 02:29:00 [facility] CT STROKE ANGIOGRAM HEAD 2022-04-13 18:40:00 Sapna Vargas [facility] CT STROKE ANGIOGRAM NECK 2022-04-13 18:40:00 Sapna Vargas [facility] CT STROKE HEAD WO CONTRAST 2022-04-13 18:36:00 Sapna Vargas [facility] TROPONIN I 2022-04-13 18:17:00 Sapna Vargas [facility] THYROID STIMULATING HORMONE 2022-04-13 18:17:00 Harshil [facility] BASIC METABOLIC PANEL (NA, K , CL, CO2, GLUCOSE, BUN, CREATININE, CA) 2022-04-13 18:17:00 Sapna Vargas [facility] LIPID PANEL ([id number])(TOTAL CHOLESTEROL, TRIGLYCERIDES, HDL) 2022-04-13 18:17:00 [facility] CBC WITHOUT DIFF 2022-04-13 18:17:00 Sapna Vargas [facility] GLYCOSYLATED HEMOGLOBIN (A1C) 2022-04-13 18:17:00 Harshil [facility] PROTHROMBIN TIME / INR 2022-04-13 18:17:00 Sapna Vargas [facility] ACTIVATED PARTIAL THRMPLAS DAVID 2022-04-13 18:17:00 Sapna Vargas [facility] COVID-19 (ID NOW RAPID TESTING) 2022-04-13 18:17:00 Sapna Vargas [facility] LAB ONLY COVID INTERPRETATION 2022-04-13 18:17:00 Sapna Vargas [facility] HB ECG ROUTINE & RHYTHM STRIP 2022-04-13 18:15:49 Sapna Vargas [facility] CONSENT/REFUSAL FOR DIAGNOSI S AND TREATMENT 2022-04-13 18:05:14 Doctor Unassigned, [place] [facility] HOSPITAL ADMISSION 2022-04-13 05:01:00 Doctor Unassigned, [place] [facility] SARS-COV-2 COVID-19 VACCINE 12 YRS+,0.3ML,IM (PFIZER - MORTON TOP) 2022-02-19 15:21:12 Doctor Unassigned, [place] [facility] URINE DRUG (IMMUNOASSAY) - COMPREHENSIVE DRUG SCREEN W/O REFLEX 2021-11-23 21:21:00 Williams Virk [facility] CT HEAD WO CONTRAST 2021-11-23 20:58:00 Williams Virk [facility] POCT TEST 2021-11-23 20:46:00 Williams Virk [facility] URINALYSIS 2021-11-23 20:43:00 Williams Virk [facility] LIPASE 2021-11-23 20:27:00 Williams Virk [facility] TROPONIN I 2021-11-23 20:27:00 Williams Virk [facility] COMP. METABOLIC PANEL ([id number]) 2021-11-23 20:27:00 Williams Virk [facility] CBC WITH DIFF 2021-11-23 20:27:00 [facility] POCT GLUCOSE (AUTOMATED) 2021-11-23 20:15:00 Doctor Unassigned, [place] [facility] SARS-COV-2 COVID-19 VACCINE,0.3ML,IM (PFIZER) 2021-05-24 14:23:12 Doctor Unassigned, [place] [facility] SARS-COV-2 COVID-19 VACCINE,0.3ML,IM (PFIZER) 2021-05-03 14:59:29 Doctor Unassigned, [place] [facility] EMERGENCY SERVICES AGREEMENT S AND AUTHORIZATIONS 2021-04-16 05:01:00 Doctor Unassigned, [place] [facility] URINALYSIS 2021-03-17 03:09:00 Fabrice Chakraborty [facility] XR CHEST 1 VW 2021-03-17 01:45:07 Fabrice Chakraborty [facility] TROPONIN I 2021-03-17 01:35:00 Fabrice Chakraborty [facility] COMP. METABOLIC PANEL ([id number]) 2021-03-17 01:35:00 Fabrice Chakraborty [facility] CBC WITH DIFF 2021-03-17 01:35:00 Fabrice Chakraborty [facility] N-TERMINAL PRO-BNP 2021-03-17 01:35:00 Fabrice Chakraborty [facility] COVID-19 (ID NOW RAPID TESTING) 2021-03-17 00:58:00 Mj Bryan [facility] CONSENT/REFUSAL FOR DIAGNOSI S AND TREATMENT 2021-03-17 00:32:59 Doctor Unassigned, [place] [facility] COVID-19 (ID NOW RAPID TESTING) 2021-02-19 17:04:00 Estefania Monroy [facility] CT ABDOMEN PELVIS W CONTRAST 2021-02-19 16:41:18 Estefania Monroy [facility] LIPASE 2021-02-19 15:58:00 Estefania Monroy [facility] COMP. METABOLIC PANEL ([id number]) 2021-02-19 15:58:00 Estefania Monroy [facility] CBC WITH DIFF 2021-02-19 15:58:00 Estefania Monroy [facility] URINALYSIS 2021-02-19 15:58:00 Estefania Monroy [facility] NOTICE OF PRIVACY PRACTICES 2021-02-19 15:30:46 Doctor Unassigned, [place] [facility] CONSENT/REFUSAL FOR DIAGNOSI S AND TREATMENT 2021-02-19 15:30:30 Doctor Unassigned, [place] [facility] Plan of Care Planned Activity Planned Date Details Comments Source Future Scheduled Test 2025-08-02 00:00:00 Lipid panel (procedure) [code = 36257507] [facility] Future Scheduled Test 2025-08-02 00:00:00 Lipid panel (procedure) [code = 05119885] [facility] Future Scheduled Test 2025-08-02 00:00:00 Lipid panel (procedure) [code = 45911141] [facility] Future Scheduled Test 2025-08-02 00:00:00 Lipid panel (procedure) [code = 71974199] [facility] Future Scheduled Test 2025-08-02 00:00:00 Lipid panel (procedure) [code = 07360610] [facility] Future Scheduled Test 2025-08-02 00:00:00 Lipid panel (procedure) [code = 08675908] [facility] Future Scheduled Test 2025-08-02 00:00:00 Lipid panel (procedure) [code = 15596330] [facility] Future Scheduled Test 2025-08-02 00:00:00 Lipid panel (procedure) [code = 33446910] [facility] Future Scheduled Test 2025-08-02 00:00:00 Lipid panel (procedure) [code = 30367571] [facility] Future Scheduled Test 2025-08-02 00:00:00 Lipid panel (procedure) [code = 75781592] [facility] Future Scheduled Test 2025-08-02 00:00:00 Lipid panel (procedure) [code = 92217895] [facility] Future Scheduled Test 2025-08-02 00:00:00 Lipid panel (procedure) [code = 54643036] [facility] Future Scheduled Test 2025-08-02 00:00:00 Lipid panel (procedure) [code = 90898139] [facility] Future Scheduled Test 2025-08-02 00:00:00 Lipid panel (procedure) [code = 27587504] [facility] Future Scheduled Test 2025-08-02 00:00:00 Lipid panel (procedure) [code = 97762147] [facility] Future Scheduled Test 2025-08-02 00:00:00 Lipid panel (procedure) [code = 40777602] [facility] Future Scheduled Test 2025-08-02 00:00:00 Lipid panel (procedure) [code = 56502695] [facility] Future Scheduled Test 2025-08-02 00:00:00 Lipid panel (procedure) [code = 84806024] [facility] Future Scheduled Test 2025-08-02 00:00:00 Lipid panel (procedure) [code = 61308551] [facility] Future Scheduled Test 2025-08-02 00:00:00 Lipid panel (procedure) [code = 07486040] [facility] Future Scheduled Test 2025-08-02 00:00:00 Lipid panel (procedure) [code = 30188385] [facility] Future Scheduled Test 2025-08-02 00:00:00 Lipid panel (procedure) [code = 13117020] [facility] Future Scheduled Test 2025-08-02 00:00:00 Lipid panel (procedure) [code = 50465117] [facility] Future Scheduled Test 2025-08-02 00:00:00 Lipid panel (procedure) [code = 96584141] [facility] Future Scheduled Test 2025-08-02 00:00:00 Lipid panel (procedure) [code = 68219547] [facility] Future Scheduled Test 2025-08-02 00:00:00 Lipid panel (procedure) [code = 83274469] [facility] Future Scheduled Test 2025-08-02 00:00:00 Lipid panel (procedure) [code = 78995646] [facility] Future Scheduled Test 2025-08-02 00:00:00 Lipid panel (procedure) [code = 23353007] [facility] Future Scheduled Test 2025-08-02 00:00:00 Lipid panel (procedure) [code = 52795986] [facility] Future Scheduled Test 2025-08-02 00:00:00 Lipid panel (procedure) [code = 49948122] [facility] Future Scheduled Test 2025-08-02 00:00:00 Lipid panel (procedure) [code = 65356691] [facility] Future Scheduled Test 2025-08-02 00:00:00 Lipid panel (procedure) [code = 76491983] [facility] Future Scheduled Test 2025-08-02 00:00:00 Lipid panel (procedure) [code = 87472061] [facility] Future Scheduled Test 2025-08-02 00:00:00 Lipid panel (procedure) [code = 15394082] [facility] Future Scheduled Test 2025-08-02 00:00:00 Lipid panel (procedure) [code = 61918835] [facility] Future Scheduled Test 2025-08-02 00:00:00 Lipid panel (procedure) [code = 97727363] [facility] Future Scheduled Test 2025-08-02 00:00:00 Lipid panel (procedure) [code = 13494672] [facility] Future Scheduled Test 2025-08-02 00:00:00 Lipid panel (procedure) [code = 82319930] [facility] Future Scheduled Test 2025-08-02 00:00:00 Lipid panel (procedure) [code = 19487280] [facility] Future Scheduled Test 2025-08-02 00:00:00 Lipid panel (procedure) [code = 85830910] [facility] Future Scheduled Test 2025-08-02 00:00:00 Lipid panel (procedure) [code = 50400202] [facility] Future Scheduled Test 2025-08-02 00:00:00 Lipid panel (procedure) [code = 13997354] [facility] Future Scheduled Test 2025-08-02 00:00:00 Lipid panel (procedure) [code = 82493190] [facility] Future Scheduled Test 2025-08-02 00:00:00 Lipid panel (procedure) [code = 02127476] [facility] Future Scheduled Test 2025-08-02 00:00:00 Lipid panel (procedure) [code = 69264414] [facility] Future Scheduled Test 2025-08-02 00:00:00 Lipid panel (procedure) [code = 01243756] [facility] Future Scheduled Test 2025-08-02 00:00:00 Lipid panel (procedure) [code = 99179637] [facility] Future Scheduled Test 2025-08-02 00:00:00 Lipid panel (procedure) [code = 63195975] [facility] Future Scheduled Test 2025-08-02 00:00:00 Lipid panel (procedure) [code = 89769927] [facility] Future Scheduled Test 2025-08-02 00:00:00 Lipid panel (procedure) [code = 76988516] [facility] Future Scheduled Test 2025-08-02 00:00:00 Lipid panel (procedure) [code = 24718083] [facility] Future Scheduled Test 2025-08-02 00:00:00 Lipid panel (procedure) [code = 19515738] [facility] Future Scheduled Test 2025-08-02 00:00:00 Lipid panel (procedure) [code = 07510912] [facility] Future Scheduled Test 2025-08-02 00:00:00 Lipid panel (procedure) [code = 63949248] [facility] Future Scheduled Test 2025-08-02 00:00:00 Lipid panel (procedure) [code = 00063085] [facility] Future Scheduled Test 2025-08-02 00:00:00 Lipid panel (procedure) [code = 25426359] [facility] Future Scheduled Test 2025-08-02 00:00:00 Lipid panel (procedure) [code = 00452682] [facility] Future Scheduled Test 2025-08-02 00:00:00 Lipid panel (procedure) [code = 75646440] [facility] Future Scheduled Test 2025-08-02 00:00:00 Lipid panel (procedure) [code = 89237360] [facility] Future Scheduled Test 2025-08-02 00:00:00 Lipid panel (procedure) [code = 16781515] [facility] Future Scheduled Test 2025-08-02 00:00:00 Lipid panel (procedure) [code = 03399755] [facility] Future Scheduled Test 2025-08-02 00:00:00 Lipid panel (procedure) [code = 34592425] [facility] Future Scheduled Test 2025-08-02 00:00:00 Lipid panel (procedure) [code = 43237946] [facility] Future Scheduled Test 2025-08-02 00:00:00 Lipid panel (procedure) [code = 19368288] [facility] Future Scheduled Test 2025-08-02 00:00:00 Lipid panel (procedure) [code = 63610541] [facility] Future Scheduled Test 2025-08-02 00:00:00 Lipid panel (procedure) [code = 38178578] [facility] Future Scheduled Test 2025-08-02 00:00:00 Lipid panel (procedure) [code = 86809328] [facility] Future Scheduled Test 2025-08-02 00:00:00 Lipid panel (procedure) [code = 80886420] [facility] Scheduled Test 2025-08-02 00:00:00 Lipid panel (procedure) [code = 67389146] [facility] Future Scheduled Test 2025-08-02 00:00:00 Lipid panel (procedure) [code = 97659284] [facility] Scheduled Test 2024-05-28 00:00:00 Tobacco Cessation Counseling and Screening (12+) [code = Tobacco Cessation Counseling and Screening (12+)] [facility] Scheduled Test 2024-05-28 00:00:00 Tobacco Cessation Counseling and Screening (12+) [code = Tobacco Cessation Counseling and Screening (12+)] [facility] Scheduled Test 2024-05-28 00:00:00 Tobacco Cessation Counseling and Screening (12+) [code = Tobacco Cessation Counseling and Screening (12+)] [facility] Scheduled Test 2024-05-28 00:00:00 Tobacco Cessation Counseling and Screening (12+) [code = Tobacco Cessation Counseling and Screening (12+)] [facility] Scheduled Test 2024-05-28 00:00:00 Tobacco Cessation Counseling and Screening (12+) [code = Tobacco Cessation Counseling and Screening (12+)] [facility] Scheduled Test 2024-05-28 00:00:00 Tobacco Cessation Counseling and Screening (12+) [code = Tobacco Cessation Counseling and Screening (12+)] [facility] Scheduled Test 2024-05-28 00:00:00 Tobacco Cessation Counseling and Screening (12+) [code = Tobacco Cessation Counseling and Screening (12+)] [facility] Scheduled Test 2024-05-28 00:00:00 Tobacco Cessation Counseling and Screening (12+) [code = Tobacco Cessation Counseling and Screening (12+)] [facility] Scheduled Test 2024-05-28 00:00:00 Tobacco Cessation Counseling and Screening (12+) [code = Tobacco Cessation Counseling and Screening (12+)] [facility] Future Scheduled Test 2024-05-28 00:00:00 Tobacco Cessation Counseling and Screening (12+) [code = Tobacco Cessation Counseling and Screening (12+)] [facility] Scheduled Test 2024-05-28 00:00:00 Tobacco Cessation Counseling and Screening (12+) [code = Tobacco Cessation Counseling and Screening (12+)] [facility] Scheduled Test 2024-05-28 00:00:00 Tobacco Cessation Counseling and Screening (12+) [code = Tobacco Cessation Counseling and Screening (12+)] [facility] Scheduled Test 2024-05-28 00:00:00 Tobacco Cessation Counseling and Screening (12+) [code = Tobacco Cessation Counseling and Screening (12+)] [facility] Scheduled Test 2024-05-28 00:00:00 Tobacco Cessation Counseling and Screening (12+) [code = Tobacco Cessation Counseling and Screening (12+)] [facility] Scheduled Test 2024-05-28 00:00:00 Tobacco Cessation Counseling and Screening (12+) [code = Tobacco Cessation Counseling and Screening (12+)] [facility] Scheduled Test 2024-05-28 00:00:00 Tobacco Cessation Counseling and Screening (12+) [code = Tobacco Cessation Counseling and Screening (12+)] [facility] Scheduled Test 2024-05-28 00:00:00 Tobacco Cessation Counseling and Screening (12+) [code = Tobacco Cessation Counseling and Screening (12+)] [facility] Scheduled Test 2024-05-28 00:00:00 Tobacco Cessation Counseling and Screening (12+) [code = Tobacco Cessation Counseling and Screening (12+)] [facility] Future Scheduled Test 2024-05-28 00:00:00 Tobacco Cessation Counseling and Screening (12+) [code = Tobacco Cessation Counseling and Screening (12+)] [facility] Scheduled Test 2024-05-28 00:00:00 Tobacco Cessation Counseling and Screening (12+) [code = Tobacco Cessation Counseling and Screening (12+)] [facility] Scheduled Test 2024-05-28 00:00:00 Tobacco Cessation Counseling and Screening (12+) [code = Tobacco Cessation Counseling and Screening (12+)] [facility] Scheduled Test 2024-05-28 00:00:00 Tobacco Cessation Counseling and Screening (12+) [code = Tobacco Cessation Counseling and Screening (12+)] [facility] Scheduled Test 2024-05-28 00:00:00 Tobacco Cessation Counseling and Screening (12+) [code = Tobacco Cessation Counseling and Screening (12+)] [facility] Scheduled Test 2024-05-28 00:00:00 Tobacco Cessation Counseling and Screening (12+) [code = Tobacco Cessation Counseling and Screening (12+)] [facility] Scheduled Test 2024-05-28 00:00:00 Tobacco Cessation Counseling and Screening (12+) [code = Tobacco Cessation Counseling and Screening (12+)] [facility] Scheduled Test 2024-05-28 00:00:00 Tobacco Cessation Counseling and Screening (12+) [code = Tobacco Cessation Counseling and Screening (12+)] [facility] Scheduled Test 2024-05-28 00:00:00 Tobacco Cessation Counseling and Screening (12+) [code = Tobacco Cessation Counseling and Screening (12+)] [facility] Scheduled Test 2024-05-28 00:00:00 Tobacco Cessation Counseling and Screening (12+) [code = Tobacco Cessation Counseling and Screening (12+)] [facility] Scheduled Test 2024-05-28 00:00:00 Tobacco Cessation Counseling and Screening (12+) [code = Tobacco Cessation Counseling and Screening (12+)] [facility] Scheduled Test 2024-05-28 00:00:00 Tobacco Cessation Counseling and Screening (12+) [code = Tobacco Cessation Counseling and Screening (12+)] [facility] Scheduled Test 2024-05-28 00:00:00 Tobacco Cessation Counseling and Screening (12+) [code = Tobacco Cessation Counseling and Screening (12+)] [facility] Scheduled Test 2024-05-28 00:00:00 Tobacco Cessation Counseling and Screening (12+) [code = Tobacco Cessation Counseling and Screening (12+)] [facility] Scheduled Test 2024-05-28 00:00:00 Tobacco Cessation Counseling and Screening (12+) [code = Tobacco Cessation Counseling and Screening (12+)] [facility] Scheduled Test 2024-05-28 00:00:00 Tobacco Cessation Counseling and Screening (12+) [code = Tobacco Cessation Counseling and Screening (12+)] [facility] Scheduled Test 2024-05-28 00:00:00 Tobacco Cessation Counseling and Screening (12+) [code = Tobacco Cessation Counseling and Screening (12+)] [facility] Scheduled Test 2024-05-28 00:00:00 Tobacco Cessation Counseling and Screening (12+) [code = Tobacco Cessation Counseling and Screening (12+)] [facility] Scheduled Test 2024-05-28 00:00:00 Tobacco Cessation Counseling and Screening (12+) [code = Tobacco Cessation Counseling and Screening (12+)] [facility] Scheduled Test 2024-05-28 00:00:00 Tobacco Cessation Counseling and Screening (12+) [code = Tobacco Cessation Counseling and Screening (12+)] [facility] Scheduled Test 2024-05-28 00:00:00 Tobacco Cessation Counseling and Screening (12+) [code = Tobacco Cessation Counseling and Screening (12+)] [facility] Scheduled Test 2024-05-28 00:00:00 Tobacco Cessation Counseling and Screening (12+) [code = Tobacco Cessation Counseling and Screening (12+)] [facility] Scheduled Test 2024-05-28 00:00:00 Tobacco Cessation Counseling and Screening (12+) [code = Tobacco Cessation Counseling and Screening (12+)] [facility] Scheduled Test 2024-05-28 00:00:00 Tobacco Cessation Counseling and Screening (12+) [code = Tobacco Cessation Counseling and Screening (12+)] [facility] Scheduled Test 2024-05-28 00:00:00 Tobacco Cessation Counseling and Screening (12+) [code = Tobacco Cessation Counseling and Screening (12+)] [facility] Scheduled Test 2024-05-28 00:00:00 Tobacco Cessation Counseling and Screening (12+) [code = Tobacco Cessation Counseling and Screening (12+)] [facility] Scheduled Test 2024-05-28 00:00:00 Tobacco Cessation Counseling and Screening (12+) [code = Tobacco Cessation Counseling and Screening (12+)] [facility] Scheduled Test 2024-05-26 00:00:00 Tobacco Cessation Counseling and Screening (12+) [code = Tobacco Cessation Counseling and Screening (12+)] [facility] Scheduled Test 2024-05-26 00:00:00 Tobacco Cessation Counseling and Screening (12+) [code = Tobacco Cessation Counseling and Screening (12+)] [facility] Scheduled Test 2024-03-20 00:00:00 Influenza Vaccine (Season Ended) [code = Influenza Vaccine (Season Ended)] [facility] Scheduled Test 2024-03-20 00:00:00 Influenza Vaccine (Season Ended) [code = Influenza Vaccine (Season Ended)] [facility] Scheduled Test 2024-03-20 00:00:00 Influenza Vaccine (Season Ended) [code = Influenza Vaccine (Season Ended)] [facility] Scheduled Test 2024-03-20 00:00:00 Influenza Vaccine (Season Ended) [code = Influenza Vaccine (Season Ended)] [facility] Scheduled Test 2024-03-20 00:00:00 Influenza Vaccine (Season Ended) [code = Influenza Vaccine (Season Ended)] [facility] Scheduled Test 2024-03-20 00:00:00 Influenza Vaccine (Season Ended) [code = Influenza Vaccine (Season Ended)] [facility] Scheduled Test 2024-03-20 00:00:00 Influenza Vaccine (Season Ended) [code = Influenza Vaccine (Season Ended)] [facility] Scheduled Test 2024-03-20 00:00:00 Influenza Vaccine (Season Ended) [code = Influenza Vaccine (Season Ended)] [facility] Scheduled Test 2024-03-20 00:00:00 Influenza Vaccine (Season Ended) [code = Influenza Vaccine (Season Ended)] [facility] Scheduled Test 2024-03-20 00:00:00 Influenza Vaccine (Season Ended) [code = Influenza Vaccine (Season Ended)] [facility] Scheduled Test 2023-07-20 00:00:00 DEPRESSION SCREENING (12+) [code = DEPRESSION SCREENING (12+)] [facility] Scheduled Test 2023-07-20 00:00:00 DEPRESSION SCREENING (12+) [code = DEPRESSION SCREENING (12+)] [facility] Scheduled Test 2023-07-20 00:00:00 DEPRESSION SCREENING (12+) [code = DEPRESSION SCREENING (12+)] [facility] Scheduled Test 2023-07-20 00:00:00 DEPRESSION SCREENING (12+) [code = DEPRESSION SCREENING (12+)] [facility] Scheduled Test 2023-07-20 00:00:00 DEPRESSION SCREENING (12+) [code = DEPRESSION SCREENING (12+)] [facility] Scheduled Test 2023-07-20 00:00:00 DEPRESSION SCREENING (12+) [code = DEPRESSION SCREENING (12+)] [facility] Scheduled Test 2023-07-20 00:00:00 DEPRESSION SCREENING (12+) [code = DEPRESSION SCREENING (12+)] [facility] Scheduled Test 2023-07-20 00:00:00 DEPRESSION SCREENING (12+) [code = DEPRESSION SCREENING (12+)] [facility] Scheduled Test 2023-07-20 00:00:00 DEPRESSION SCREENING (12+) [code = DEPRESSION SCREENING (12+)] [facility] Scheduled Test 2023-07-20 00:00:00 DEPRESSION SCREENING (12+) [code = DEPRESSION SCREENING (12+)] [facility] Scheduled Test 2023-07-20 00:00:00 DEPRESSION SCREENING (12+) [code = DEPRESSION SCREENING (12+)] [facility] Scheduled Test 2023-07-20 00:00:00 DEPRESSION SCREENING (12+) [code = DEPRESSION SCREENING (12+)] [facility] Scheduled Test 2023-07-20 00:00:00 DEPRESSION SCREENING (12+) [code = DEPRESSION SCREENING (12+)] [facility] Scheduled Test 2023-07-20 00:00:00 DEPRESSION SCREENING (12+) [code = DEPRESSION SCREENING (12+)] [facility] Scheduled Test 2023-07-20 00:00:00 DEPRESSION SCREENING (12+) [code = DEPRESSION SCREENING (12+)] [facility] Scheduled Test 2023-07-20 00:00:00 DEPRESSION SCREENING (12+) [code = DEPRESSION SCREENING (12+)] [facility] Scheduled Test 2023-07-20 00:00:00 DEPRESSION SCREENING (12+) [code = DEPRESSION SCREENING (12+)] [facility] Scheduled Test 2023-07-20 00:00:00 DEPRESSION SCREENING (12+) [code = DEPRESSION SCREENING (12+)] [facility] Scheduled Test 2023-07-20 00:00:00 DEPRESSION SCREENING (12+) [code = DEPRESSION SCREENING (12+)] [facility] Scheduled Test 2023-07-20 00:00:00 DEPRESSION SCREENING (12+) [code = DEPRESSION SCREENING (12+)] [facility] Scheduled Test 2023-07-20 00:00:00 DEPRESSION SCREENING (12+) [code = DEPRESSION SCREENING (12+)] [facility] Scheduled Test 2023-07-20 00:00:00 DEPRESSION SCREENING (12+) [code = DEPRESSION SCREENING (12+)] [facility] Scheduled Test 2023-07-20 00:00:00 DEPRESSION SCREENING (12+) [code = DEPRESSION SCREENING (12+)] [facility] Scheduled Test 2023-07-20 00:00:00 DEPRESSION SCREENING (12+) [code = DEPRESSION SCREENING (12+)] [facility] Scheduled Test 2023-07-20 00:00:00 DEPRESSION SCREENING (12+) [code = DEPRESSION SCREENING (12+)] [facility] Scheduled Test 2023-07-20 00:00:00 DEPRESSION SCREENING (12+) [code = DEPRESSION SCREENING (12+)] [facility] Scheduled Test 2023-07-20 00:00:00 DEPRESSION SCREENING (12+) [code = DEPRESSION SCREENING (12+)] [facility] Scheduled Test 2023-07-20 00:00:00 DEPRESSION SCREENING (12+) [code = DEPRESSION SCREENING (12+)] [facility] Scheduled Test 2023-07-20 00:00:00 DEPRESSION SCREENING (12+) [code = DEPRESSION SCREENING (12+)] [facility] Scheduled Test 2023-07-20 00:00:00 DEPRESSION SCREENING (12+) [code = DEPRESSION SCREENING (12+)] [facility] Scheduled Test 2023-07-20 00:00:00 DEPRESSION SCREENING (12+) [code = DEPRESSION SCREENING (12+)] [facility] Scheduled Test 2023-07-20 00:00:00 DEPRESSION SCREENING (12+) [code = DEPRESSION SCREENING (12+)] [facility] Scheduled Test 2023-07-20 00:00:00 DEPRESSION SCREENING (12+) [code = DEPRESSION SCREENING (12+)] [facility] Scheduled Test 2023-07-20 00:00:00 DEPRESSION SCREENING (12+) [code = DEPRESSION SCREENING (12+)] [facility] Scheduled Test 2023-07-20 00:00:00 DEPRESSION SCREENING (12+) [code = DEPRESSION SCREENING (12+)] [facility] Scheduled Test 2023-07-20 00:00:00 DEPRESSION SCREENING (12+) [code = DEPRESSION SCREENING (12+)] [facility] Scheduled Test 2023-07-20 00:00:00 DEPRESSION SCREENING (12+) [code = DEPRESSION SCREENING (12+)] [facility] Scheduled Test 2023-03-20 00:00:00 INFLUENZA VACCINE (Season Ended) [code = INFLUENZA VACCINE (Season Ended)] [facility] Scheduled Test 2023-03-20 00:00:00 INFLUENZA VACCINE (Season Ended) [code = INFLUENZA VACCINE (Season Ended)] [facility] Scheduled Test 2023-03-20 00:00:00 INFLUENZA VACCINE (Season Ended) [code = INFLUENZA VACCINE (Season Ended)] [facility] Scheduled Test 2023-03-20 00:00:00 INFLUENZA VACCINE (Season Ended) [code = INFLUENZA VACCINE (Season Ended)] [facility] Scheduled Test 2023-03-20 00:00:00 INFLUENZA VACCINE (Season Ended) [code = INFLUENZA VACCINE (Season Ended)] [facility] Scheduled Test 2023-03-20 00:00:00 INFLUENZA VACCINE (Season Ended) [code = INFLUENZA VACCINE (Season Ended)] [facility] Scheduled Test 2023-03-20 00:00:00 Influenza Vaccine (Season Ended) [code = Influenza Vaccine (Season Ended)] [facility] Scheduled Test 2023-03-20 00:00:00 Influenza Vaccine (Season Ended) [code = Influenza Vaccine (Season Ended)] [facility] Scheduled Test 2023-03-20 00:00:00 Influenza Vaccine (#1) [code = Influenza Vaccine (#1)] [facility] Scheduled Test 2023-03-20 00:00:00 Influenza Vaccine (#1) [code = Influenza Vaccine (#1)] [facility] Scheduled Test 2023-03-20 00:00:00 Influenza Vaccine (#1) [code = Influenza Vaccine (#1)] [facility] Scheduled Test 2023-03-20 00:00:00 Influenza Vaccine (#1) [code = Influenza Vaccine (#1)] [facility] Scheduled Test 2023-03-20 00:00:00 COVID-19 VACCINE ( season) [code = COVID-19 VACCINE ( season)] [facility] Scheduled Test 2023-03-20 00:00:00 Influenza Vaccine (#1) [code = Influenza Vaccine (#1)] [facility] Scheduled Test 2023-03-20 00:00:00 COVID-19 VACCINE ( season) [code = COVID-19 VACCINE ( season)] [facility] Scheduled Test 2023-03-20 00:00:00 Influenza Vaccine (#1) [code = Influenza Vaccine (#1)] [facility] Scheduled Test 2023-03-20 00:00:00 COVID-19 VACCINE ( season) [code = COVID-19 VACCINE ( season)] [facility] Scheduled Test 2023-03-20 00:00:00 Influenza Vaccine (#1) [code = Influenza Vaccine (#1)] [facility] Scheduled Test 2023-03-20 00:00:00 COVID-19 VACCINE ( season) [code = COVID-19 VACCINE ( season)] [facility] Scheduled Test 2023-03-20 00:00:00 Influenza Vaccine (#1) [code = Influenza Vaccine (#1)] [facility] Scheduled Test 2023-03-20 00:00:00 Influenza Vaccine (#1) [code = Influenza Vaccine (#1)] [facility] Scheduled Test 2023-03-20 00:00:00 COVID-19 VACCINE ( season) [code = COVID-19 VACCINE ()] [facility] Scheduled Test 2023-03-20 00:00:00 Influenza Vaccine (#1) [code = Influenza Vaccine (#1)] [facility] Scheduled Test 2023-03-20 00:00:00 COVID-19 VACCINE ( season) [code = COVID-19 VACCINE ()] [facility] Scheduled Test 2023-03-20 00:00:00 Influenza Vaccine (#1) [code = Influenza Vaccine (#1)] [facility] Scheduled Test 2023-03-20 00:00:00 COVID-19 VACCINE ( season) [code = COVID-19 VACCINE ()] [facility] Scheduled Test 2023-03-20 00:00:00 Influenza Vaccine (#1) [code = Influenza Vaccine (#1)] [facility] Scheduled Test 2023-03-20 00:00:00 COVID-19 VACCINE ( season) [code = COVID-19 VACCINE ( season)] [facility] Scheduled Test 2023-03-20 00:00:00 Influenza Vaccine (#1) [code = Influenza Vaccine (#1)] [facility] Scheduled Test 2023-03-20 00:00:00 COVID-19 VACCINE ( season) [code = COVID-19 VACCINE ( season)] [facility] Scheduled Test 2023-03-20 00:00:00 Influenza Vaccine (#1) [code = Influenza Vaccine (#1)] [facility] Scheduled Test 2023-03-20 00:00:00 COVID-19 VACCINE ( season) [code = COVID-19 VACCINE ( season)] [facility] Scheduled Test 2023-03-20 00:00:00 Influenza Vaccine (#1) [code = Influenza Vaccine (#1)] [facility] Scheduled Test 2023-03-20 00:00:00 COVID-19 VACCINE ( season) [code = COVID-19 VACCINE ()] [facility] Scheduled Test 2023-03-20 00:00:00 Influenza Vaccine (#1) [code = Influenza Vaccine (#1)] [facility] Scheduled Test 2023-03-20 00:00:00 Influenza Vaccine (#1) [code = Influenza Vaccine (#1)] [facility] Scheduled Test 2023-03-20 00:00:00 COVID-19 VACCINE ( season) [code = COVID-19 VACCINE ( season)] [facility] Scheduled Test 2023-03-20 00:00:00 Influenza Vaccine (#1) [code = Influenza Vaccine (#1)] [facility] Scheduled Test 2023-03-20 00:00:00 COVID-19 VACCINE ( season) [code = COVID-19 VACCINE ( season)] [facility] Scheduled Test 2023-03-20 00:00:00 Influenza Vaccine (#1) [code = Influenza Vaccine (#1)] [facility] Scheduled Test 2023-03-20 00:00:00 COVID-19 VACCINE ( season) [code = COVID-19 VACCINE ()] [facility] Scheduled Test 2023-03-20 00:00:00 Influenza Vaccine (#1) [code = Influenza Vaccine (#1)] [facility] Scheduled Test 2023-03-20 00:00:00 COVID-19 VACCINE ( season) [code = COVID-19 VACCINE ( season)] [facility] Scheduled Test 2023-03-20 00:00:00 Influenza Vaccine (#1) [code = Influenza Vaccine (#1)] [facility] Scheduled Test 2023-03-20 00:00:00 COVID-19 VACCINE ( season) [code = COVID-19 VACCINE ()] [facility] Scheduled Test 2023-03-20 00:00:00 Influenza Vaccine (#1) [code = Influenza Vaccine (#1)] [facility] Scheduled Test 2023-03-20 00:00:00 COVID-19 VACCINE ( season) [code = COVID-19 VACCINE ()] [facility] Scheduled Test 2023-03-20 00:00:00 Influenza Vaccine (#1) [code = Influenza Vaccine (#1)] [facility] Scheduled Test 2023-03-20 00:00:00 Influenza Vaccine (#1) [code = Influenza Vaccine (#1)] [facility] Scheduled Test 2023-03-20 00:00:00 COVID-19 VACCINE ( season) [code = COVID-19 VACCINE ( season)] [facility] Scheduled Test 2023-03-20 00:00:00 Influenza Vaccine (#1) [code = Influenza Vaccine (#1)] [facility] Scheduled Test 2023-03-20 00:00:00 COVID-19 VACCINE ( season) [code = COVID-19 VACCINE ( season)] [facility] Scheduled Test 2023-03-20 00:00:00 Influenza Vaccine (#1) [code = Influenza Vaccine (#1)] [facility] Scheduled Test 2023-03-20 00:00:00 COVID-19 VACCINE ( season) [code = COVID-19 VACCINE ( season)] [facility] Scheduled Test 2023-03-20 00:00:00 Influenza Vaccine (#1) [code = Influenza Vaccine (#1)] [facility] Scheduled Test 2023-03-20 00:00:00 COVID-19 VACCINE ( season) [code = COVID-19 VACCINE ()] [facility] Scheduled Test 2023-03-20 00:00:00 Influenza Vaccine (#1) [code = Influenza Vaccine (#1)] [facility] Scheduled Test 2023-03-20 00:00:00 Influenza Vaccine (#1) [code = Influenza Vaccine (#1)] [facility] Scheduled Test 2023-03-20 00:00:00 COVID-19 VACCINE ( season) [code = COVID-19 VACCINE ()] [facility] Scheduled Test 2023-03-20 00:00:00 Influenza Vaccine (#1) [code = Influenza Vaccine (#1)] [facility] Scheduled Test 2023-03-20 00:00:00 COVID-19 VACCINE ( season) [code = COVID-19 VACCINE ()] [facility] Scheduled Test 2023-03-20 00:00:00 Influenza Vaccine (#1) [code = Influenza Vaccine (#1)] [facility] Scheduled Test 2023-03-20 00:00:00 COVID-19 VACCINE ( season) [code = COVID-19 VACCINE ( season)] [facility] Scheduled Test 2023-03-20 00:00:00 Influenza Vaccine (#1) [code = Influenza Vaccine (#1)] [facility] Scheduled Test 2023-03-20 00:00:00 COVID-19 VACCINE ( season) [code = COVID-19 VACCINE ()] [facility] Scheduled Test 2023-03-20 00:00:00 Influenza Vaccine (#1) [code = Influenza Vaccine (#1)] [facility] Scheduled Test 2023-03-20 00:00:00 COVID-19 VACCINE () [code = COVID-19 VACCINE ()] [facility] Scheduled Test 2023-03-20 00:00:00 Influenza Vaccine (#1) [code = Influenza Vaccine (#1)] [facility] Scheduled Test 2023-03-20 00:00:00 COVID-19 VACCINE () [code = COVID-19 VACCINE ()] [facility] Scheduled Test 2023-03-20 00:00:00 Influenza Vaccine (#1) [code = Influenza Vaccine (#1)] [facility] Scheduled Test 2023-03-20 00:00:00 Influenza Vaccine (#1) [code = Influenza Vaccine (#1)] [facility] Scheduled Test 2023-03-20 00:00:00 COVID-19 VACCINE () [code = COVID-19 VACCINE ()] [facility] Scheduled Test 2023-03-20 00:00:00 Influenza Vaccine (#1) [code = Influenza Vaccine (#1)] [facility] Scheduled Test 2023-03-20 00:00:00 COVID-19 VACCINE ( season) [code = COVID-19 VACCINE ()] [facility] Scheduled Test 2023-03-20 00:00:00 Influenza Vaccine (#1) [code = Influenza Vaccine (#1)] [facility] Scheduled Test 2023-03-20 00:00:00 COVID-19 VACCINE () [code = COVID-19 VACCINE ()] [facility] Scheduled Test 2023-03-20 00:00:00 COVID-19 VACCINE ( season) [code = COVID-19 VACCINE ()] [facility] Scheduled Test 2023-03-20 00:00:00 COVID-19 VACCINE () [code = COVID-19 VACCINE ()] [facility] Scheduled Test 2023-03-20 00:00:00 COVID-19 VACCINE () [code = COVID-19 VACCINE ()] [facility] Scheduled Test 2023-03-20 00:00:00 COVID-19 VACCINE () [code = COVID-19 VACCINE ()] [facility] Scheduled Test 2023-03-20 00:00:00 COVID-19 VACCINE () [code = COVID-19 VACCINE ()] [facility] Scheduled Test 2023-03-20 00:00:00 Influenza Vaccine (#1) [code = Influenza Vaccine (#1)] [facility] Scheduled Test 2023-03-20 00:00:00 COVID-19 VACCINE () [code = COVID-19 VACCINE ()] [facility] Scheduled Test 2023-03-20 00:00:00 COVID-19 VACCINE () [code = COVID-19 VACCINE ()] [facility] Scheduled Test 2023-03-20 00:00:00 COVID-19 VACCINE () [code = COVID-19 VACCINE ()] [facility] Scheduled Test 2023-03-20 00:00:00 COVID-19 VACCINE (4 - 2023-24 season) [code = COVID-19 VACCINE ( season)] [facility] Scheduled Test 2023-03-20 00:00:00 Influenza Vaccine (#1) [code = Influenza Vaccine (#1)] [facility] Scheduled Test 2023-03-20 00:00:00 Influenza Vaccine (#1) [code = Influenza Vaccine (#1)] [facility] Scheduled Test 2023-03-20 00:00:00 Influenza Vaccine (#1) [code = Influenza Vaccine (#1)] [facility] Scheduled Test 2023-03-20 00:00:00 Influenza Vaccine (#1) [code = Influenza Vaccine (#1)] [facility] Scheduled Test 2023-03-20 00:00:00 Influenza Vaccine (#1) [code = Influenza Vaccine (#1)] [facility] Scheduled Test 2023-03-20 00:00:00 Influenza Vaccine (#1) [code = Influenza Vaccine (#1)] [facility] Scheduled Test 2023-03-20 00:00:00 Influenza Vaccine (#1) [code = Influenza Vaccine (#1)] [facility] Scheduled Test 2023-03-20 00:00:00 Influenza Vaccine (#1) [code = Influenza Vaccine (#1)] [facility] [facility] Scheduled Test 2023-03-20 00:00:00 Influenza Vaccine (#1) [code = Influenza Vaccine (#1)] [facility] Scheduled Test 2023-03-20 00:00:00 COVID-19 VACCINE ( season) [code = COVID-19 VACCINE ( season)] [facility] Scheduled Test 2022-07-20 00:00:00 DEPRESSION SCREENING (12+) [code = DEPRESSION SCREENING (12+)] [facility] Scheduled Test 2022-07-20 00:00:00 DEPRESSION SCREENING (12+) [code = DEPRESSION SCREENING (12+)] [facility] Scheduled Test 2022-07-20 00:00:00 DEPRESSION SCREENING (12+) [code = DEPRESSION SCREENING (12+)] [facility] Scheduled Test 2022-07-20 00:00:00 DEPRESSION SCREENING (12+) [code = DEPRESSION SCREENING (12+)] [facility] Scheduled Test 2022-07-20 00:00:00 DEPRESSION SCREENING (12+) [code = DEPRESSION SCREENING (12+)] [facility] Scheduled Test 2022-07-20 00:00:00 DEPRESSION SCREENING (12+) [code = DEPRESSION SCREENING (12+)] [facility] Scheduled Test 2022-07-20 00:00:00 DEPRESSION SCREENING (12+) [code = DEPRESSION SCREENING (12+)] [facility] Scheduled Test 2022-07-20 00:00:00 DEPRESSION SCREENING (12+) [code = DEPRESSION SCREENING (12+)] [facility] Scheduled Test 2022-07-20 00:00:00 DEPRESSION SCREENING (12+) [code = DEPRESSION SCREENING (12+)] [facility] Scheduled Test 2022-07-20 00:00:00 DEPRESSION SCREENING (12+) [code = DEPRESSION SCREENING (12+)] [facility] Scheduled Test 2022-07-20 00:00:00 DEPRESSION SCREENING (12+) [code = DEPRESSION SCREENING (12+)] [facility] Scheduled Test 2022-07-20 00:00:00 DEPRESSION SCREENING (12+) [code = DEPRESSION SCREENING (12+)] [facility] Scheduled Test 2022-07-20 00:00:00 DEPRESSION SCREENING (12+) [code = DEPRESSION SCREENING (12+)] [facility] Scheduled Test 2022-07-20 00:00:00 DEPRESSION SCREENING (12+) [code = DEPRESSION SCREENING (12+)] [facility] Scheduled Test 2022-07-20 00:00:00 DEPRESSION SCREENING (12+) [code = DEPRESSION SCREENING (12+)] [facility] Scheduled Test 2022-07-20 00:00:00 DEPRESSION SCREENING (12+) [code = DEPRESSION SCREENING (12+)] [facility] Scheduled Test 2022-07-20 00:00:00 DEPRESSION SCREENING (12+) [code = DEPRESSION SCREENING (12+)] [facility] Scheduled Test 2022-07-20 00:00:00 DEPRESSION SCREENING (12+) [code = DEPRESSION SCREENING (12+)] [facility] Scheduled Test 2022-07-20 00:00:00 DEPRESSION SCREENING (12+) [code = DEPRESSION SCREENING (12+)] [facility] Scheduled Test 2022-07-20 00:00:00 DEPRESSION SCREENING (12+) [code = DEPRESSION SCREENING (12+)] [facility] Scheduled Test 2022-07-20 00:00:00 DEPRESSION SCREENING (12+) [code = DEPRESSION SCREENING (12+)] [facility] Scheduled Test 2022-07-20 00:00:00 DEPRESSION SCREENING (12+) [code = DEPRESSION SCREENING (12+)] [facility] Scheduled Test 2022-07-20 00:00:00 DEPRESSION SCREENING (12+) [code = DEPRESSION SCREENING (12+)] [facility] Scheduled Test 2022-07-20 00:00:00 DEPRESSION SCREENING (12+) [code = DEPRESSION SCREENING (12+)] [facility] Scheduled Test 2022-07-20 00:00:00 DEPRESSION SCREENING (12+) [code = DEPRESSION SCREENING (12+)] [facility] Scheduled Test 2022-07-20 00:00:00 DEPRESSION SCREENING (12+) [code = DEPRESSION SCREENING (12+)] [facility] Scheduled Test 2022-07-20 00:00:00 DEPRESSION SCREENING (12+) [code = DEPRESSION SCREENING (12+)] [facility] Scheduled Test 2022-07-20 00:00:00 DEPRESSION SCREENING (12+) [code = DEPRESSION SCREENING (12+)] [facility] Scheduled Test 2022-07-20 00:00:00 DEPRESSION SCREENING (12+) [code = DEPRESSION SCREENING (12+)] [facility] Scheduled Test 2022-07-20 00:00:00 DEPRESSION SCREENING (12+) [code = DEPRESSION SCREENING (12+)] [facility] Scheduled Test 2022-07-20 00:00:00 DEPRESSION SCREENING (12+) [code = DEPRESSION SCREENING (12+)] [facility] Scheduled Test 2022-07-20 00:00:00 DEPRESSION SCREENING (12+) [code = DEPRESSION SCREENING (12+)] [facility] Scheduled Test 2022-07-20 00:00:00 DEPRESSION SCREENING (12+) [code = DEPRESSION SCREENING (12+)] [facility] Scheduled Test 2022-06-21 00:00:00 COVID-19 VACCINE (4 - Booster for Pfizer series) [code = COVID-19 VACCINE (4 - Booster for Pfizer series)] [facility] Scheduled Test 2022-06-21 00:00:00 COVID-19 VACCINE (4 - Booster for Pfizer series) [code = COVID-19 VACCINE (4 - Booster for Pfizer series)] [facility] Scheduled Test 2022-06-21 00:00:00 COVID-19 VACCINE (4 - Booster for Pfizer series) [code = COVID-19 VACCINE (4 - Booster for Pfizer series)] [facility] Scheduled Test 2022-06-21 00:00:00 COVID-19 VACCINE (4 - Booster for Pfizer series) [code = COVID-19 VACCINE (4 - Booster for Pfizer series)] [facility] Scheduled Test 2022-04-16 00:00:00 COVID-19 VACCINE (4 - Booster for Pfizer series) [code = COVID-19 VACCINE (4 - Booster for Pfizer series)] [facility] Scheduled Test 2022-04-16 00:00:00 COVID-19 VACCINE (4 - Booster for Pfizer series) [code = COVID-19 VACCINE (4 - Booster for Pfizer series)] [facility] Scheduled Test 2022-04-16 00:00:00 COVID-19 VACCINE (4 - Booster for Pfizer series) [code = COVID-19 VACCINE (4 - Booster for Pfizer series)] [facility] Scheduled Test 2022-04-16 00:00:00 COVID-19 VACCINE (4 - Booster for Pfizer series) [code = COVID-19 VACCINE (4 - Booster for Pfizer series)] [facility] Scheduled Test 2022-04-16 00:00:00 COVID-19 VACCINE (4 - Booster for Pfizer series) [code = COVID-19 VACCINE (4 - Booster for Pfizer series)] [facility] Scheduled Test 2022-04-16 00:00:00 COVID-19 VACCINE (4 - Booster for Pfizer series) [code = COVID-19 VACCINE (4 - Booster for Pfizer series)] [facility] Scheduled Test 2022-04-16 00:00:00 COVID-19 VACCINE (4 - Booster for Pfizer series) [code = COVID-19 VACCINE (4 - Booster for Pfizer series)] [facility] Scheduled Test 2022-04-16 00:00:00 COVID-19 VACCINE (4 - Booster for Pfizer series) [code = COVID-19 VACCINE (4 - Booster for Pfizer series)] [facility] Scheduled Test 2022-04-16 00:00:00 COVID-19 VACCINE (4 - Booster for Pfizer series) [code = COVID-19 VACCINE (4 - Booster for Pfizer series)] [facility] Scheduled Test 2022-04-16 00:00:00 COVID-19 VACCINE (4 - Booster for Pfizer series) [code = COVID-19 VACCINE (4 - Booster for Pfizer series)] [facility] Scheduled Test 2022-04-16 00:00:00 COVID-19 VACCINE (4 - Booster for Pfizer series) [code = COVID-19 VACCINE (4 - Booster for Pfizer series)] [facility] Scheduled Test 2022-04-16 00:00:00 COVID-19 VACCINE (4 - Booster for Pfizer series) [code = COVID-19 VACCINE (4 - Booster for Pfizer series)] [facility] Scheduled Test 2022-04-16 00:00:00 COVID-19 VACCINE (4 - Booster for Pfizer series) [code = COVID-19 VACCINE (4 - Booster for Pfizer series)] [facility] Scheduled Test 2022-04-16 00:00:00 COVID-19 VACCINE (4 - Booster for Pfizer series) [code = COVID-19 VACCINE (4 - Booster for Pfizer series)] [facility] Scheduled Test 2022-04-16 00:00:00 COVID-19 VACCINE (4 - Booster for Pfizer series) [code = COVID-19 VACCINE (4 - Booster for Pfizer series)] [facility] Scheduled Test 2022-04-16 00:00:00 COVID-19 VACCINE (4 - Booster for Pfizer series) [code = COVID-19 VACCINE (4 - Booster for Pfizer series)] [facility] Scheduled Test 2022-04-16 00:00:00 COVID-19 VACCINE (4 - Booster for Pfizer series) [code = COVID-19 VACCINE (4 - Booster for Pfizer series)] [facility] Scheduled Test 2022-04-16 00:00:00 COVID-19 VACCINE (4 - Booster for Pfizer series) [code = COVID-19 VACCINE (4 - Booster for Pfizer series)] [facility] Scheduled Test 2022-04-16 00:00:00 COVID-19 VACCINE (4 - Booster for Pfizer series) [code = COVID-19 VACCINE (4 - Booster for Pfizer series)] [facility] Scheduled Test 2022-04-16 00:00:00 COVID-19 VACCINE (4 - Booster for Pfizer series) [code = COVID-19 VACCINE (4 - Booster for Pfizer series)] [facility] Scheduled Test 2022-04-16 00:00:00 COVID-19 VACCINE (4 - Pfizer series) [code = COVID-19 VACCINE (4 - Pfizer series)] [facility] Scheduled Test 2022-04-16 00:00:00 COVID-19 VACCINE (4 - Pfizer series) [code = COVID-19 VACCINE (4 - Pfizer series)] [facility] Scheduled Test 2022-04-16 00:00:00 COVID-19 VACCINE (4 - Pfizer series) [code = COVID-19 VACCINE (4 - Pfizer series)] [facility] Scheduled Test 2022-04-16 00:00:00 COVID-19 VACCINE (4 - Pfizer series) [code = COVID-19 VACCINE (4 - Pfizer series)] [facility] Scheduled Test 2022-04-16 00:00:00 COVID-19 VACCINE (4 - Booster for Pfizer series) [code = COVID-19 VACCINE (4 - Booster for Pfizer series)] [facility] Scheduled Test 2022-04-16 00:00:00 COVID-19 VACCINE (4 - Pfizer series) [code = COVID-19 VACCINE (4 - Pfizer series)] [facility] Scheduled Test 2022-03-20 00:00:00 INFLUENZA VACCINE (#1) [code = INFLUENZA VACCINE (#1)] [facility] Scheduled Test 2022-03-20 00:00:00 INFLUENZA VACCINE (#1) [code = INFLUENZA VACCINE (#1)] [facility] Scheduled Test 2022-03-20 00:00:00 INFLUENZA VACCINE (#1) [code = INFLUENZA VACCINE (#1)] [facility] Scheduled Test 2022-03-20 00:00:00 INFLUENZA VACCINE (#1) [code = INFLUENZA VACCINE (#1)] [facility] Scheduled Test 2022-01-14 00:00:00 SHINGLES VACCINES (1 of 2) [code = SHINGLES VACCINES (1 of 2)] [facility] Scheduled Test 2022-01-14 00:00:00 SHINGLES VACCINES (1 of 2) [code = SHINGLES VACCINES (1 of 2)] [facility] Scheduled Test 2022-01-14 00:00:00 SHINGLES VACCINES (1 of 2) [code = SHINGLES VACCINES (1 of 2)] [facility] Scheduled Test 2022-01-14 00:00:00 SHINGLES VACCINES (1 of 2) [code = SHINGLES VACCINES (1 of 2)] [facility] Scheduled Test 2022-01-14 00:00:00 SHINGLES VACCINES (1 of 2) [code = SHINGLES VACCINES (1 of 2)] [facility] Scheduled Test 2022-01-14 00:00:00 SHINGLES VACCINES (1 of 2) [code = SHINGLES VACCINES (1 of 2)] [facility] Scheduled Test 2022-01-14 00:00:00 SHINGLES VACCINES (1 of 2) [code = SHINGLES VACCINES (1 of 2)] [facility] Scheduled Test 2022-01-14 00:00:00 SHINGLES VACCINES (1 of 2) [code = SHINGLES VACCINES (1 of 2)] [facility] Scheduled Test 2022-01-14 00:00:00 SHINGLES VACCINES (1 of 2) [code = SHINGLES VACCINES (1 of 2)] [facility] Scheduled Test 2022-01-14 00:00:00 SHINGLES VACCINES (1 of 2) [code = SHINGLES VACCINES (1 of 2)] [facility] Scheduled Test 2022-01-14 00:00:00 SHINGLES VACCINES (1 of 2) [code = SHINGLES VACCINES (1 of 2)] [facility] Scheduled Test 2022-01-14 00:00:00 SHINGLES VACCINES (1 of 2) [code = SHINGLES VACCINES (1 of 2)] [facility] Scheduled Test 2022-01-14 00:00:00 SHINGLES VACCINES (1 of 2) [code = SHINGLES VACCINES (1 of 2)] [facility] Scheduled Test 2022-01-14 00:00:00 SHINGLES VACCINES (1 of 2) [code = SHINGLES VACCINES (1 of 2)] [facility] Scheduled Test 2022-01-14 00:00:00 SHINGLES VACCINES (1 of 2) [code = SHINGLES VACCINES (1 of 2)] [facility] Scheduled Test 2022-01-14 00:00:00 Screening for malignant neoplasm of lung (procedure) [code = [id number]] [facility] Scheduled Test 2022-01-14 00:00:00 SHINGLES VACCINES (1 of 2) [code = SHINGLES VACCINES (1 of 2)] [facility] Scheduled Test 2022-01-14 00:00:00 Screening for malignant neoplasm of lung (procedure) [code = [id number]] [facility] Scheduled Test 2022-01-14 00:00:00 SHINGLES VACCINES (1 of 2) [code = SHINGLES VACCINES (1 of 2)] [facility] Scheduled Test 2022-01-14 00:00:00 Screening for malignant neoplasm of lung (procedure) [code = [id number]] [facility] Scheduled Test 2022-01-14 00:00:00 SHINGLES VACCINES (1 of 2) [code = SHINGLES VACCINES (1 of 2)] [facility] Scheduled Test 2022-01-14 00:00:00 Screening for malignant neoplasm of lung (procedure) [code = [id number]] [facility] Scheduled Test 2022-01-14 00:00:00 SHINGLES VACCINES (1 of 2) [code = SHINGLES VACCINES (1 of 2)] [facility] Scheduled Test 2022-01-14 00:00:00 Screening for malignant neoplasm of lung (procedure) [code = [id number]] [facility] Scheduled Test 2022-01-14 00:00:00 SHINGLES VACCINES (1 of 2) [code = SHINGLES VACCINES (1 of 2)] [facility] Scheduled Test 2022-01-14 00:00:00 Screening for malignant neoplasm of lung (procedure) [code = [id number]] [facility] Scheduled Test 2022-01-14 00:00:00 SHINGLES VACCINES (1 of 2) [code = SHINGLES VACCINES (1 of 2)] [facility] Scheduled Test 2022-01-14 00:00:00 Screening for malignant neoplasm of lung (procedure) [code = 320582935] [facility] Scheduled Test 2022-01-14 00:00:00 SHINGLES VACCINES (1 of 2) [code = SHINGLES VACCINES (1 of 2)] [facility] Scheduled Test 2022-01-14 00:00:00 Screening for malignant neoplasm of lung (procedure) [code = 738137813] [facility] Scheduled Test 2022-01-14 00:00:00 SHINGLES VACCINES (1 of 2) [code = SHINGLES VACCINES (1 of 2)] [facility] Scheduled Test 2022-01-14 00:00:00 Screening for malignant neoplasm of lung (procedure) [code = 809768017] [facility] Scheduled Test 2022-01-14 00:00:00 SHINGLES VACCINES (1 of 2) [code = SHINGLES VACCINES (1 of 2)] [facility] Scheduled Test 2022-01-14 00:00:00 Screening for malignant neoplasm of lung (procedure) [code = 755594633] [facility] Scheduled Test 2022-01-14 00:00:00 SHINGLES VACCINES (1 of 2) [code = SHINGLES VACCINES (1 of 2)] [facility] Scheduled Test 2022-01-14 00:00:00 Screening for malignant neoplasm of lung (procedure) [code = 115783195] [facility] Scheduled Test 2022-01-14 00:00:00 SHINGLES VACCINES (1 of 2) [code = SHINGLES VACCINES (1 of 2)] [facility] Scheduled Test 2022-01-14 00:00:00 Screening for malignant neoplasm of lung (procedure) [code = 350120162] [facility] Scheduled Test 2022-01-14 00:00:00 SHINGLES VACCINES (1 of 2) [code = SHINGLES VACCINES (1 of 2)] [facility] Scheduled Test 2022-01-14 00:00:00 Screening for malignant neoplasm of lung (procedure) [code = 283519060] [facility] Scheduled Test 2022-01-14 00:00:00 SHINGLES VACCINES (1 of 2) [code = SHINGLES VACCINES (1 of 2)] [facility] Scheduled Test 2022-01-14 00:00:00 Screening for malignant neoplasm of lung (procedure) [code = 624231557] [facility] Scheduled Test 2022-01-14 00:00:00 SHINGLES VACCINES (1 of 2) [code = SHINGLES VACCINES (1 of 2)] [facility] Scheduled Test 2022-01-14 00:00:00 Screening for malignant neoplasm of lung (procedure) [code = 227667731] [facility] Scheduled Test 2022-01-14 00:00:00 SHINGLES VACCINES (1 of 2) [code = SHINGLES VACCINES (1 of 2)] [facility] Scheduled Test 2022-01-14 00:00:00 Screening for malignant neoplasm of lung (procedure) [code = 109841318] [facility] Scheduled Test 2022-01-14 00:00:00 SHINGLES VACCINES (1 of 2) [code = SHINGLES VACCINES (1 of 2)] [facility] Scheduled Test 2022-01-14 00:00:00 Screening for malignant neoplasm of lung (procedure) [code = 482786488] [facility] Scheduled Test 2022-01-14 00:00:00 SHINGLES VACCINES (1 of 2) [code = SHINGLES VACCINES (1 of 2)] [facility] Scheduled Test 2022-01-14 00:00:00 Screening for malignant neoplasm of lung (procedure) [code = 427781132] [facility] Scheduled Test 2022-01-14 00:00:00 SHINGLES VACCINES (1 of 2) [code = SHINGLES VACCINES (1 of 2)] [facility] Scheduled Test 2022-01-14 00:00:00 Screening for malignant neoplasm of lung (procedure) [code = 544059449] [facility] Scheduled Test 2022-01-14 00:00:00 Screening for malignant neoplasm of lung (procedure) [code = 385729521] [facility] Scheduled Test 2022-01-14 00:00:00 SHINGLES VACCINES (1 of 2) [code = SHINGLES VACCINES (1 of 2)] [facility] Scheduled Test 2022-01-14 00:00:00 SHINGLES VACCINES (1 of 2) [code = SHINGLES VACCINES (1 of 2)] [facility] Scheduled Test 2022-01-14 00:00:00 Screening for malignant neoplasm of lung (procedure) [code = 290859746] [facility] Scheduled Test 2022-01-14 00:00:00 SHINGLES VACCINES (1 of 2) [code = SHINGLES VACCINES (1 of 2)] [facility] Scheduled Test 2022-01-14 00:00:00 Screening for malignant neoplasm of lung (procedure) [code = 655309739] [facility] Scheduled Test 2022-01-14 00:00:00 SHINGLES VACCINES (1 of 2) [code = SHINGLES VACCINES (1 of 2)] [facility] Scheduled Test 2022-01-14 00:00:00 Screening for malignant neoplasm of lung (procedure) [code = 435293739] [facility] Scheduled Test 2022-01-14 00:00:00 SHINGLES VACCINES (1 of 2) [code = SHINGLES VACCINES (1 of 2)] [facility] Scheduled Test 2022-01-14 00:00:00 Screening for malignant neoplasm of lung (procedure) [code = 651342422] [facility] Scheduled Test 2022-01-14 00:00:00 Screening for malignant neoplasm of lung (procedure) [code = 012421415] [facility] Scheduled Test 2022-01-14 00:00:00 SHINGLES VACCINES (1 of 2) [code = SHINGLES VACCINES (1 of 2)] [facility] Scheduled Test 2022-01-14 00:00:00 SHINGLES VACCINES (1 of 2) [code = SHINGLES VACCINES (1 of 2)] [facility] Scheduled Test 2022-01-14 00:00:00 Screening for malignant neoplasm of lung (procedure) [code = 875315548] [facility] Scheduled Test 2022-01-14 00:00:00 SHINGLES VACCINES (1 of 2) [code = SHINGLES VACCINES (1 of 2)] [facility] Scheduled Test 2022-01-14 00:00:00 Screening for malignant neoplasm of lung (procedure) [code = 901767962] [facility] Scheduled Test 2022-01-14 00:00:00 SHINGLES VACCINES (1 of 2) [code = SHINGLES VACCINES (1 of 2)] [facility] Scheduled Test 2022-01-14 00:00:00 Screening for malignant neoplasm of lung (procedure) [code = 242387834] [facility] Scheduled Test 2022-01-14 00:00:00 SHINGLES VACCINES (1 of 2) [code = SHINGLES VACCINES (1 of 2)] [facility] Scheduled Test 2022-01-14 00:00:00 Screening for malignant neoplasm of lung (procedure) [code = 475672919] [facility] Scheduled Test 2022-01-14 00:00:00 SHINGLES VACCINES (1 of 2) [code = SHINGLES VACCINES (1 of 2)] [facility] Scheduled Test 2022-01-14 00:00:00 Screening for malignant neoplasm of lung (procedure) [code = 632994782] [facility] Scheduled Test 2022-01-14 00:00:00 SHINGLES VACCINES (1 of 2) [code = SHINGLES VACCINES (1 of 2)] [facility] Scheduled Test 2022-01-14 00:00:00 Screening for malignant neoplasm of lung (procedure) [code = 733092303] [facility] Scheduled Test 2022-01-14 00:00:00 Screening for malignant neoplasm of lung (procedure) [code = 139667698] [facility] Scheduled Test 2022-01-14 00:00:00 SHINGLES VACCINES (1 of 2) [code = SHINGLES VACCINES (1 of 2)] [facility] Scheduled Test 2022-01-14 00:00:00 SHINGLES VACCINES (1 of 2) [code = SHINGLES VACCINES (1 of 2)] [facility] Scheduled Test 2022-01-14 00:00:00 Screening for malignant neoplasm of lung (procedure) [code = 738085849] [facility] Scheduled Test 2022-01-14 00:00:00 SHINGLES VACCINES (1 of 2) [code = SHINGLES VACCINES (1 of 2)] [facility] Scheduled Test 2022-01-14 00:00:00 Screening for malignant neoplasm of lung (procedure) [code = 736599074] [facility] Scheduled Test 2022-01-14 00:00:00 SHINGLES VACCINES (1 of 2) [code = SHINGLES VACCINES (1 of 2)] [facility] Scheduled Test 2022-01-14 00:00:00 Screening for malignant neoplasm of lung (procedure) [code = 471630776] [facility] Scheduled Test 2022-01-14 00:00:00 SHINGLES VACCINES (1 of 2) [code = SHINGLES VACCINES (1 of 2)] [facility] Scheduled Test 2022-01-14 00:00:00 Screening for malignant neoplasm of lung (procedure) [code = 525146649] [facility] Scheduled Test 2022-01-14 00:00:00 SHINGLES VACCINES (1 of 2) [code = SHINGLES VACCINES (1 of 2)] [facility] Scheduled Test 2022-01-14 00:00:00 Screening for malignant neoplasm of lung (procedure) [code = 770925718] [facility] Scheduled Test 2022-01-14 00:00:00 SHINGLES VACCINES (1 of 2) [code = SHINGLES VACCINES (1 of 2)] [facility] Scheduled Test 2022-01-14 00:00:00 Screening for malignant neoplasm of lung (procedure) [code = 653879529] [facility] Scheduled Test 2022-01-14 00:00:00 SHINGLES VACCINES (1 of 2) [code = SHINGLES VACCINES (1 of 2)] [facility] Scheduled Test 2022-01-14 00:00:00 Screening for malignant neoplasm of lung (procedure) [code = 858472423] [facility] Scheduled Test 2022-01-14 00:00:00 SHINGLES VACCINES (1 of 2) [code = SHINGLES VACCINES (1 of 2)] [facility] Future Scheduled Test 2022-01-14 00:00:00 Screening for malignant neoplasm of lung (procedure) [code = [id number]] [facility] Future Scheduled Test 2022-01-14 00:00:00 SHINGLES VACCINES (1 of 2) [code = SHINGLES VACCINES (1 of 2)] [facility] Future Scheduled Test 2022-01-14 00:00:00 Screening for malignant neoplasm of lung (procedure) [code = [id number]] [facility] Future Scheduled Test 2022-01-14 00:00:00 SHINGLES VACCINES (1 of 2) [code = SHINGLES VACCINES (1 of 2)] [facility] Future Scheduled Test 2022-01-14 00:00:00 Screening for malignant neoplasm of lung (procedure) [code = [id number]] [facility] Future Scheduled Test 2022-01-14 00:00:00 SHINGLES VACCINES (1 of 2) [code = SHINGLES VACCINES (1 of 2)] [facility] Future Scheduled Test 2022-01-14 00:00:00 Screening for malignant neoplasm of lung (procedure) [code = [id number]] [facility] Future Scheduled Test 2022-01-14 00:00:00 SHINGLES VACCINES (1 of 2) [code = SHINGLES VACCINES (1 of 2)] [facility] Future Scheduled Test 2022-01-14 00:00:00 Screening for malignant neoplasm of lung (procedure) [code = [id number]] [facility] Future Scheduled Test 2022-01-14 00:00:00 SHINGLES VACCINES (1 of 2) [code = SHINGLES VACCINES (1 of 2)] [facility] Future Scheduled Test 2022-01-14 00:00:00 Screening for malignant neoplasm of lung (procedure) [code = [id number]] [facility] Future Scheduled Test 2022-01-14 00:00:00 SHINGLES VACCINES (1 of 2) [code = SHINGLES VACCINES (1 of 2)] [facility] Future Scheduled Test 2022-01-14 00:00:00 Screening for malignant neoplasm of lung (procedure) [code = [id number]] [facility] Future Scheduled Test 2022-01-14 00:00:00 SHINGLES VACCINES (1 of 2) [code = SHINGLES VACCINES (1 of 2)] [facility] Future Scheduled Test 2022-01-14 00:00:00 SHINGLES VACCINES (1 of 2) [code = SHINGLES VACCINES (1 of 2)] [facility] Future Scheduled Test 2022-01-14 00:00:00 SHINGLES VACCINES (1 of 2) [code = SHINGLES VACCINES (1 of 2)] [facility] Future Scheduled Test 2022-01-14 00:00:00 Screening for malignant neoplasm of lung (procedure) [code = [id number]] [facility] Future Scheduled Test 2022-01-14 00:00:00 SHINGLES VACCINES (1 of 2) [code = SHINGLES VACCINES (1 of 2)] [facility] Future Scheduled Test 2022-01-14 00:00:00 Screening for malignant neoplasm of lung (procedure) [code = 165995296] [facility] Future Scheduled Test 2022-01-14 00:00:00 SHINGLES VACCINES (1 of 2) [code = SHINGLES VACCINES (1 of 2)] [facility] Future Scheduled Test 2022-01-14 00:00:00 Screening for malignant neoplasm of lung (procedure) [code = [id number]] [facility] Future Scheduled Test 2022-01-14 00:00:00 SHINGLES VACCINES (1 of 2) [code = SHINGLES VACCINES (1 of 2)] [facility] Future Scheduled Test 2022-01-14 00:00:00 Screening for malignant neoplasm of lung (procedure) [code = [id number]] [facility] Future Scheduled Test 2022-01-14 00:00:00 SHINGLES VACCINES (1 of 2) [code = SHINGLES VACCINES (1 of 2)] [facility] Future Scheduled Test 2022-01-14 00:00:00 Screening for malignant neoplasm of lung (procedure) [code = 669129893] [facility] Future Scheduled Test 2022-01-14 00:00:00 SHINGLES VACCINES (1 of 2) [code = SHINGLES VACCINES (1 of 2)] [facility] Future Scheduled Test 2022-01-14 00:00:00 Screening for malignant neoplasm of lung (procedure) [code = 598471091] [facility] Future Scheduled Test 2022-01-14 00:00:00 SHINGLES VACCINES (1 of 2) [code = SHINGLES VACCINES (1 of 2)] [facility] Future Scheduled Test 2022-01-14 00:00:00 Screening for malignant neoplasm of lung (procedure) [code = 670779670] [facility] Future Scheduled Test 2022-01-14 00:00:00 SHINGLES VACCINES (1 of 2) [code = SHINGLES VACCINES (1 of 2)] [facility] Future Scheduled Test 2013-12-15 00:00:00 PNEUMOCOCCAL VACCINE 0-64 YRS (2 - PCV) [code = PNEUMOCOCCAL VACCINE 0-64 YRS (2 - PCV)] [facility] Future Scheduled Test 2013-12-15 00:00:00 PNEUMOCOCCAL VACCINE 0-64 YRS (2 - PCV) [code = PNEUMOCOCCAL VACCINE 0-64 YRS (2 - PCV)] [facility] Future Scheduled Test 2013-12-15 00:00:00 PNEUMOCOCCAL VACCINE 0-64 YRS (2 - PCV) [code = PNEUMOCOCCAL VACCINE 0-64 YRS (2 - PCV)] [facility] Future Scheduled Test 2013-12-15 00:00:00 PNEUMOCOCCAL VACCINE 0-64 YRS (2 - PCV) [code = PNEUMOCOCCAL VACCINE 0-64 YRS (2 - PCV)] [facility] Future Scheduled Test 2013-12-15 00:00:00 Pneumococcal Vaccine: 0-64 Years (2 - PCV) [code = Pneumococcal Vaccine: 0-64 Years (2 - PCV)] [facility] Future Scheduled Test 2013-12-15 00:00:00 Pneumococcal Vaccine: 0-64 Years (2 - PCV) [code = Pneumococcal Vaccine: 0-64 Years (2 - PCV)] [facility] Future Scheduled Test 2013-12-15 00:00:00 Pneumococcal Vaccine: 0-64 Years (2 - PCV) [code = Pneumococcal Vaccine: 0-64 Years (2 - PCV)] [facility] Future Scheduled Test 2013-12-15 00:00:00 Pneumococcal Vaccine: 0-64 Years (2 - PCV) [code = Pneumococcal Vaccine: 0-64 Years (2 - PCV)] [facility] Future Scheduled Test 2013-12-15 00:00:00 Pneumococcal Vaccine: 0-64 Years (2 - PCV) [code = Pneumococcal Vaccine: 0-64 Years (2 - PCV)] [facility] Future Scheduled Test 2013-12-15 00:00:00 Pneumococcal Vaccine: 0-64 Years (2 - PCV) [code = Pneumococcal Vaccine: 0-64 Years (2 - PCV)] [facility] Future Scheduled Test 2013-12-15 00:00:00 Pneumococcal Vaccine: 0-64 Years (2 - PCV) [code = Pneumococcal Vaccine: 0-64 Years (2 - PCV)] [facility] Future Scheduled Test 2013-12-15 00:00:00 Pneumococcal Vaccine: 0-64 Years (2 - PCV) [code = Pneumococcal Vaccine: 0-64 Years (2 - PCV)] [facility] Future Scheduled Test 2013-12-15 00:00:00 Pneumococcal Vaccine: 0-64 Years (2 - PCV) [code = Pneumococcal Vaccine: 0-64 Years (2 - PCV)] [facility] Future Scheduled Test 2013-12-15 00:00:00 Pneumococcal Vaccine: 0-64 Years (2 - PCV) [code = Pneumococcal Vaccine: 0-64 Years (2 - PCV)] [facility] Future Scheduled Test 2013-12-15 00:00:00 Pneumococcal Vaccine: 0-64 Years (2 - PCV) [code = Pneumococcal Vaccine: 0-64 Years (2 - PCV)] [facility] Future Scheduled Test 2013-12-15 00:00:00 Pneumococcal Vaccine: 0-64 Years (2 - PCV) [code = Pneumococcal Vaccine: 0-64 Years (2 - PCV)] [facility] Future Scheduled Test 2013-12-15 00:00:00 Pneumococcal Vaccine: 0-64 Years (2 - PCV) [code = Pneumococcal Vaccine: 0-64 Years (2 - PCV)] [facility] Future Scheduled Test 2013-12-15 00:00:00 Pneumococcal Vaccine: 0-64 Years (2 - PCV) [code = Pneumococcal Vaccine: 0-64 Years (2 - PCV)] [facility] Future Scheduled Test 2013-12-15 00:00:00 Pneumococcal Vaccine: 0-64 Years (2 - PCV) [code = Pneumococcal Vaccine: 0-64 Years (2 - PCV)] [facility] Future Scheduled Test 2013-12-15 00:00:00 Pneumococcal Vaccine: 0-64 Years (2 - PCV) [code = Pneumococcal Vaccine: 0-64 Years (2 - PCV)] [facility] Future Scheduled Test 2013-12-15 00:00:00 Pneumococcal Vaccine: 0-64 Years (2 - PCV) [code = Pneumococcal Vaccine: 0-64 Years (2 - PCV)] [facility] Future Scheduled Test 2013-12-15 00:00:00 Pneumococcal Vaccine: 0-64 Years (2 - PCV) [code = Pneumococcal Vaccine: 0-64 Years (2 - PCV)] [facility] Future Scheduled Test 2013-12-15 00:00:00 Pneumococcal Vaccine: 0-64 Years (2 - PCV) [code = Pneumococcal Vaccine: 0-64 Years (2 - PCV)] [facility] Future Scheduled Test 2013-12-15 00:00:00 Pneumococcal Vaccine: 0-64 Years (2 - PCV) [code = Pneumococcal Vaccine: 0-64 Years (2 - PCV)] [facility] Future Scheduled Test 2013-12-15 00:00:00 Pneumococcal Vaccine: 0-64 Years (2 of 2 - PCV) [code = Pneumococcal Vaccine: 0-64 Years (2 of 2 - PCV)] [facility] Future Scheduled Test 2013-12-15 00:00:00 Pneumococcal Vaccine: 0-64 Years (2 of 2 - PCV) [code = Pneumococcal Vaccine: 0-64 Years (2 of 2 - PCV)] [facility] Future Scheduled Test 2013-12-15 00:00:00 Pneumococcal Vaccine: 0-64 Years (2 of 2 - PCV) [code = Pneumococcal Vaccine: 0-64 Years (2 of 2 - PCV)] [facility] Future Scheduled Test 2013-12-15 00:00:00 Pneumococcal Vaccine: 0-64 Years (2 of 2 - PCV) [code = Pneumococcal Vaccine: 0-64 Years (2 of 2 - PCV)] [facility] Future Scheduled Test 2013-12-15 00:00:00 Pneumococcal Vaccine: 0-64 Years (2 of 2 - PCV) [code = Pneumococcal Vaccine: 0-64 Years (2 of 2 - PCV)] [facility] Future Scheduled Test 2013-12-15 00:00:00 Pneumococcal Vaccine: 0-64 Years (2 of 2 - PCV) [code = Pneumococcal Vaccine: 0-64 Years (2 of 2 - PCV)] [facility] Future Scheduled Test 2013-12-15 00:00:00 Pneumococcal Vaccine: 0-64 Years (2 of 2 - PCV) [code = Pneumococcal Vaccine: 0-64 Years (2 of 2 - PCV)] [facility] Future Scheduled Test 2013-12-15 00:00:00 Pneumococcal Vaccine: 0-64 Years (2 of 2 - PCV) [code = Pneumococcal Vaccine: 0-64 Years (2 of 2 - PCV)] [facility] Future Scheduled Test 2013-12-15 00:00:00 Pneumococcal Vaccine: 0-64 Years (2 of 2 - PCV) [code = Pneumococcal Vaccine: 0-64 Years (2 of 2 - PCV)] [facility] Future Scheduled Test 2013-12-15 00:00:00 Pneumococcal Vaccine: 0-64 Years (2 of 2 - PCV) [code = Pneumococcal Vaccine: 0-64 Years (2 of 2 - PCV)] [facility] Future Scheduled Test 2013-12-15 00:00:00 Pneumococcal Vaccine: 0-64 Years (2 of 2 - PCV) [code = Pneumococcal Vaccine: 0-64 Years (2 of 2 - PCV)] [facility] Future Scheduled Test 2013-12-15 00:00:00 Pneumococcal Vaccine: 0-64 Years (2 of 2 - PCV) [code = Pneumococcal Vaccine: 0-64 Years (2 of 2 - PCV)] [facility] Future Scheduled Test 2013-12-15 00:00:00 Pneumococcal Vaccine: 0-64 Years (2 of 2 - PCV) [code = Pneumococcal Vaccine: 0-64 Years (2 of 2 - PCV)] [facility] Future Scheduled Test 2013-12-15 00:00:00 Pneumococcal Vaccine: 0-64 Years (2 of 2 - PCV) [code = Pneumococcal Vaccine: 0-64 Years (2 of 2 - PCV)] [facility] Future Scheduled Test 2013-12-15 00:00:00 Pneumococcal Vaccine: 0-64 Years (2 of 2 - PCV) [code = Pneumococcal Vaccine: 0-64 Years (2 of 2 - PCV)] [facility] Future Scheduled Test 2013-12-15 00:00:00 Pneumococcal Vaccine: 0-64 Years (2 of 2 - PCV) [code = Pneumococcal Vaccine: 0-64 Years (2 of 2 - PCV)] [facility] Future Scheduled Test 2013-12-15 00:00:00 Pneumococcal Vaccine: 0-64 Years (2 of 2 - PCV) [code = Pneumococcal Vaccine: 0-64 Years (2 of 2 - PCV)] [facility] Future Scheduled Test 2013-12-15 00:00:00 Pneumococcal Vaccine: 0-64 Years (2 of 2 - PCV) [code = Pneumococcal Vaccine: 0-64 Years (2 of 2 - PCV)] [facility] Future Scheduled Test 2013-12-15 00:00:00 Pneumococcal Vaccine: 0-64 Years (2 of 2 - PCV) [code = Pneumococcal Vaccine: 0-64 Years (2 of 2 - PCV)] [facility] Future Scheduled Test 2013-12-15 00:00:00 Pneumococcal Vaccine: 0-64 Years (2 - PCV) [code = Pneumococcal Vaccine: 0-64 Years (2 - PCV)] [facility] Future Scheduled Test 2013-12-15 00:00:00 Pneumococcal Vaccine: 0-64 Years (2 - PCV) [code = Pneumococcal Vaccine: 0-64 Years (2 - PCV)] [facility] Future Scheduled Test 2013-12-15 00:00:00 Pneumococcal Vaccine: 0-64 Years (2 - PCV) [code = Pneumococcal Vaccine: 0-64 Years (2 - PCV)] [facility] Future Scheduled Test 1993-01-14 00:00:00 Screening for malignant neoplasm of cervix (procedure) [code = [id number]] [facility] Future Scheduled Test 1993-01-14 00:00:00 Screening for malignant neoplasm of cervix (procedure) [code = 698085970] [facility] Future Scheduled Test 1993-01-14 00:00:00 Screening for malignant neoplasm of cervix (procedure) [code = 398699664] [facility] Future Scheduled Test 1993-01-14 00:00:00 Screening for malignant neoplasm of cervix (procedure) [code = 833404763] [facility] Future Scheduled Test 1993-01-14 00:00:00 Screening for malignant neoplasm of cervix (procedure) [code = [id number]] [facility] Future Scheduled Test 1993-01-14 00:00:00 Screening for malignant neoplasm of cervix (procedure) [code = 818431357] [facility] Future Scheduled Test 1993-01-14 00:00:00 Screening for malignant neoplasm of cervix (procedure) [code = [id number]] [facility] Future Scheduled Test 1993-01-14 00:00:00 Screening for malignant neoplasm of cervix (procedure) [code = 117574261] [facility] Future Scheduled Test 1993-01-14 00:00:00 Screening for malignant neoplasm of cervix (procedure) [code = 272803117] [facility] Future Scheduled Test 1993-01-14 00:00:00 Screening for malignant neoplasm of cervix (procedure) [code = 497430961] [facility] Future Scheduled Test 1993-01-14 00:00:00 Screening for malignant neoplasm of cervix (procedure) [code = 071956621] [facility] Future Scheduled Test 1993-01-14 00:00:00 Screening for malignant neoplasm of cervix (procedure) [code = 248425528] [facility] Future Scheduled Test 1993-01-14 00:00:00 Screening for malignant neoplasm of cervix (procedure) [code = 057116296] [facility] Future Scheduled Test 1993-01-14 00:00:00 Screening for malignant neoplasm of cervix (procedure) [code = 970106801] [facility] Future Scheduled Test 1993-01-14 00:00:00 Screening for malignant neoplasm of cervix (procedure) [code = 676988167] [facility] Future Scheduled Test 1993-01-14 00:00:00 Screening for malignant neoplasm of cervix (procedure) [code = 224426061] [facility] Future Scheduled Test 1993-01-14 00:00:00 Screening for malignant neoplasm of cervix (procedure) [code = 548030743] [facility] Future Scheduled Test 1993-01-14 00:00:00 Screening for malignant neoplasm of cervix (procedure) [code = 295785633] [facility] Future Scheduled Test 1993-01-14 00:00:00 Screening for malignant neoplasm of cervix (procedure) [code = 849084901] [facility] Future Scheduled Test 1993-01-14 00:00:00 Screening for malignant neoplasm of cervix (procedure) [code = 115255544] [facility] Future Scheduled Test 1993-01-14 00:00:00 Screening for malignant neoplasm of cervix (procedure) [code = 629543742] [facility] Future Scheduled Test 1993-01-14 00:00:00 Screening for malignant neoplasm of cervix (procedure) [code = 125934575] [facility] Future Scheduled Test 1993-01-14 00:00:00 Screening for malignant neoplasm of cervix (procedure) [code = 028063911] [facility] Future Scheduled Test 1993-01-14 00:00:00 Screening for malignant neoplasm of cervix (procedure) [code = 102634835] [facility] Future Scheduled Test 1993-01-14 00:00:00 Screening for malignant neoplasm of cervix (procedure) [code = 937372962] [facility] Future Scheduled Test 1993-01-14 00:00:00 Screening for malignant neoplasm of cervix (procedure) [code = 537062993] [facility] Future Scheduled Test 1993-01-14 00:00:00 Screening for malignant neoplasm of cervix (procedure) [code = 657656055] [facility] Future Scheduled Test 1993-01-14 00:00:00 Screening for malignant neoplasm of cervix (procedure) [code = 679747325] [facility] Future Scheduled Test 1993-01-14 00:00:00 Screening for malignant neoplasm of cervix (procedure) [code = 452559302] [facility] Future Scheduled Test 1993-01-14 00:00:00 Screening for malignant neoplasm of cervix (procedure) [code = 777453446] [facility] Future Scheduled Test 1993-01-14 00:00:00 Screening for malignant neoplasm of cervix (procedure) [code = 416780879] [facility] Future Scheduled Test 1993-01-14 00:00:00 Screening for malignant neoplasm of cervix (procedure) [code = 993401304] [facility] Future Scheduled Test 1993-01-14 00:00:00 Screening for malignant neoplasm of cervix (procedure) [code = 844237645] [facility] Future Scheduled Test 1993-01-14 00:00:00 Screening for malignant neoplasm of cervix (procedure) [code = 979339855] [facility] Future Scheduled Test 1993-01-14 00:00:00 Screening for malignant neoplasm of cervix (procedure) [code = 432391501] [facility] Future Scheduled Test 1993-01-14 00:00:00 Screening for malignant neoplasm of cervix (procedure) [code = 642173761] [facility] Future Scheduled Test 1993-01-14 00:00:00 Screening for malignant neoplasm of cervix (procedure) [code = 777759605] [facility] Future Scheduled Test 1993-01-14 00:00:00 Screening for malignant neoplasm of cervix (procedure) [code = 263068270] [facility] Future Scheduled Test 1993-01-14 00:00:00 Screening for malignant neoplasm of cervix (procedure) [code = [id number]] [facility] Future Scheduled Test 1993-01-14 00:00:00 Screening for malignant neoplasm of cervix (procedure) [code = 389017352] [facility] Future Scheduled Test 1993-01-14 00:00:00 Screening for malignant neoplasm of cervix (procedure) [code = 378336890] [facility] Future Scheduled Test 1993-01-14 00:00:00 Screening for malignant neoplasm of cervix (procedure) [code = 748213107] [facility] Future Scheduled Test 1993-01-14 00:00:00 Screening for malignant neoplasm of cervix (procedure) [code = [id number]] [facility] Future Scheduled Test 1993-01-14 00:00:00 Screening for malignant neoplasm of cervix (procedure) [code = 388655688] [facility] Future Scheduled Test 1993-01-14 00:00:00 Screening for malignant neoplasm of cervix (procedure) [code = 865329136] [facility] Future Scheduled Test 1993-01-14 00:00:00 Screening for malignant neoplasm of cervix (procedure) [code = 316430970] [facility] Future Scheduled Test 1993-01-14 00:00:00 Screening for malignant neoplasm of cervix (procedure) [code = 682981229] [facility] Future Scheduled Test 1993-01-14 00:00:00 Screening for malignant neoplasm of cervix (procedure) [code = 257609549] [facility] Future Scheduled Test 1993-01-14 00:00:00 Screening for malignant neoplasm of cervix (procedure) [code = 649458787] [facility] Future Scheduled Test 1993-01-14 00:00:00 Screening for malignant neoplasm of cervix (procedure) [code = 915618881] [facility] Future Scheduled Test 1993-01-14 00:00:00 Screening for malignant neoplasm of cervix (procedure) [code = 094970031] [facility] Future Scheduled Test 1993-01-14 00:00:00 Screening for malignant neoplasm of cervix (procedure) [code = 839732536] [facility] Future Scheduled Test 1993-01-14 00:00:00 Screening for malignant neoplasm of cervix (procedure) [code = 135295694] [facility] Future Scheduled Test 1993-01-14 00:00:00 Screening for malignant neoplasm of cervix (procedure) [code = 858672496] [facility] Future Scheduled Test 1993-01-14 00:00:00 Screening for malignant neoplasm of cervix (procedure) [code = 742677145] [facility] Future Scheduled Test 1993-01-14 00:00:00 Screening for malignant neoplasm of cervix (procedure) [code = 455898968] [facility] Future Scheduled Test 1993-01-14 00:00:00 Screening for malignant neoplasm of cervix (procedure) [code = 703486461] [facility] Future Scheduled Test 1993-01-14 00:00:00 Screening for malignant neoplasm of cervix (procedure) [code = 088758561] [facility] Future Scheduled Test 1993-01-14 00:00:00 Screening for malignant neoplasm of cervix (procedure) [code = 820800251] [facility] Future Scheduled Test 1993-01-14 00:00:00 Screening for malignant neoplasm of cervix (procedure) [code = 021719768] [facility] Future Scheduled Test 1993-01-14 00:00:00 Screening for malignant neoplasm of cervix (procedure) [code = 468374093] [facility] Future Scheduled Test 1993-01-14 00:00:00 Screening for malignant neoplasm of cervix (procedure) [code = 268169773] [facility] Future Scheduled Test 1993-01-14 00:00:00 Screening for malignant neoplasm of cervix (procedure) [code = 808591550] [facility] Future Scheduled Test 1993-01-14 00:00:00 Screening for malignant neoplasm of cervix (procedure) [code = 406726058] [facility] Future Scheduled Test 1993-01-14 00:00:00 Screening for malignant neoplasm of cervix (procedure) [code = 523157000] [facility] Future Scheduled Test 1993-01-14 00:00:00 Screening for malignant neoplasm of cervix (procedure) [code = 705503396] [facility] Future Scheduled Test 1993-01-14 00:00:00 Screening for malignant neoplasm of cervix (procedure) [code = 796667680] [facility] Future Scheduled Test 1993-01-14 00:00:00 Screening for malignant neoplasm of cervix (procedure) [code = 298897425] [facility] Future Scheduled Test 1993-01-14 00:00:00 Screening for malignant neoplasm of cervix (procedure) [code = 973640678] [facility] Future Scheduled Test 1993-01-14 00:00:00 Screening for malignant neoplasm of cervix (procedure) [code = 273683733] [facility] Future Scheduled Test 1991-01-14 00:00:00 DTAP/TDAP/TD VACCINES (1 - Tdap) [code = DTAP/TDAP/TD VACCINES (1 - Tdap)] [facility] Future Scheduled Test 1991-01-14 00:00:00 DTAP/TDAP/TD VACCINES (1 - Tdap) [code = DTAP/TDAP/TD VACCINES (1 - Tdap)] [facility] Future Scheduled Test 1991-01-14 00:00:00 DTAP/TDAP/TD VACCINES (1 - Tdap) [code = DTAP/TDAP/TD VACCINES (1 - Tdap)] [facility] Future Scheduled Test 1991-01-14 00:00:00 DTAP/TDAP/TD VACCINES (1 - Tdap) [code = DTAP/TDAP/TD VACCINES (1 - Tdap)] [facility] Future Scheduled Test 1991-01-14 00:00:00 DTAP/TDAP/TD VACCINES (1 - Tdap) [code = DTAP/TDAP/TD VACCINES (1 - Tdap)] [facility] Future Scheduled Test 1991-01-14 00:00:00 DTAP/TDAP/TD VACCINES (1 - Tdap) [code = DTAP/TDAP/TD VACCINES (1 - Tdap)] [facility] Future Scheduled Test 1991-01-14 00:00:00 DTAP/TDAP/TD VACCINES (1 - Tdap) [code = DTAP/TDAP/TD VACCINES (1 - Tdap)] [facility] Future Scheduled Test 1991-01-14 00:00:00 DTAP/TDAP/TD VACCINES (1 - Tdap) [code = DTAP/TDAP/TD VACCINES (1 - Tdap)] [facility] Future Scheduled Test 1991-01-14 00:00:00 DTAP/TDAP/TD VACCINES (1 - Tdap) [code = DTAP/TDAP/TD VACCINES (1 - Tdap)] [facility] Future Scheduled Test 1991-01-14 00:00:00 DTAP/TDAP/TD VACCINES (1 - Tdap) [code = DTAP/TDAP/TD VACCINES (1 - Tdap)] [facility] Future Scheduled Test 1991-01-14 00:00:00 DTAP/TDAP/TD VACCINES (1 - Tdap) [code = DTAP/TDAP/TD VACCINES (1 - Tdap)] [facility] Future Scheduled Test 1991-01-14 00:00:00 DTAP/TDAP/TD VACCINES (1 - Tdap) [code = DTAP/TDAP/TD VACCINES (1 - Tdap)] [facility] Future Scheduled Test 1991-01-14 00:00:00 DTAP/TDAP/TD VACCINES (1 - Tdap) [code = DTAP/TDAP/TD VACCINES (1 - Tdap)] [facility] Future Scheduled Test 1991-01-14 00:00:00 DTAP/TDAP/TD VACCINES (1 - Tdap) [code = DTAP/TDAP/TD VACCINES (1 - Tdap)] [facility] Future Scheduled Test 1991-01-14 00:00:00 DTAP/TDAP/TD VACCINES (1 - Tdap) [code = DTAP/TDAP/TD VACCINES (1 - Tdap)] [facility] Future Scheduled Test 1991-01-14 00:00:00 DTAP/TDAP/TD VACCINES (1 - Tdap) [code = DTAP/TDAP/TD VACCINES (1 - Tdap)] [facility] Future Scheduled Test 1991-01-14 00:00:00 DTAP/TDAP/TD VACCINES (1 - Tdap) [code = DTAP/TDAP/TD VACCINES (1 - Tdap)] [facility] Future Scheduled Test 1991-01-14 00:00:00 DTAP/TDAP/TD VACCINES (1 - Tdap) [code = DTAP/TDAP/TD VACCINES (1 - Tdap)] [facility] Future Scheduled Test 1991-01-14 00:00:00 DTAP/TDAP/TD VACCINES (1 - Tdap) [code = DTAP/TDAP/TD VACCINES (1 - Tdap)] [facility] Future Scheduled Test 1991-01-14 00:00:00 DTAP/TDAP/TD VACCINES (1 - Tdap) [code = DTAP/TDAP/TD VACCINES (1 - Tdap)] [facility] Future Scheduled Test 1991-01-14 00:00:00 DTAP/TDAP/TD VACCINES (1 - Tdap) [code = DTAP/TDAP/TD VACCINES (1 - Tdap)] [facility] Future Scheduled Test 1991-01-14 00:00:00 DTAP/TDAP/TD VACCINES (1 - Tdap) [code = DTAP/TDAP/TD VACCINES (1 - Tdap)] [facility] Future Scheduled Test 1991-01-14 00:00:00 DTAP/TDAP/TD VACCINES (1 - Tdap) [code = DTAP/TDAP/TD VACCINES (1 - Tdap)] [facility] Future Scheduled Test 1991-01-14 00:00:00 DTAP/TDAP/TD VACCINES (1 - Tdap) [code = DTAP/TDAP/TD VACCINES (1 - Tdap)] [facility] Future Scheduled Test 1991-01-14 00:00:00 DTAP/TDAP/TD VACCINES (1 - Tdap) [code = DTAP/TDAP/TD VACCINES (1 - Tdap)] [facility] Future Scheduled Test 1991-01-14 00:00:00 DTAP/TDAP/TD VACCINES (1 - Tdap) [code = DTAP/TDAP/TD VACCINES (1 - Tdap)] [facility] Future Scheduled Test 1991-01-14 00:00:00 DTAP/TDAP/TD VACCINES (1 - Tdap) [code = DTAP/TDAP/TD VACCINES (1 - Tdap)] [facility] Future Scheduled Test 1991-01-14 00:00:00 DTAP/TDAP/TD VACCINES (1 - Tdap) [code = DTAP/TDAP/TD VACCINES (1 - Tdap)] [facility] Future Scheduled Test 1991-01-14 00:00:00 DTAP/TDAP/TD VACCINES (1 - Tdap) [code = DTAP/TDAP/TD VACCINES (1 - Tdap)] [facility] Future Scheduled Test 1991-01-14 00:00:00 DTAP/TDAP/TD VACCINES (1 - Tdap) [code = DTAP/TDAP/TD VACCINES (1 - Tdap)] [facility] Future Scheduled Test 1991-01-14 00:00:00 DTAP/TDAP/TD VACCINES (1 - Tdap) [code = DTAP/TDAP/TD VACCINES (1 - Tdap)] [facility] Future Scheduled Test 1991-01-14 00:00:00 DTAP/TDAP/TD VACCINES (1 - Tdap) [code = DTAP/TDAP/TD VACCINES (1 - Tdap)] [facility] Future Scheduled Test 1991-01-14 00:00:00 DTAP/TDAP/TD VACCINES (1 - Tdap) [code = DTAP/TDAP/TD VACCINES (1 - Tdap)] [facility] Future Scheduled Test 1991-01-14 00:00:00 DTAP/TDAP/TD VACCINES (1 - Tdap) [code = DTAP/TDAP/TD VACCINES (1 - Tdap)] [facility] Future Scheduled Test 1991-01-14 00:00:00 DTAP/TDAP/TD VACCINES (1 - Tdap) [code = DTAP/TDAP/TD VACCINES (1 - Tdap)] [facility] Future Scheduled Test 1991-01-14 00:00:00 DTAP/TDAP/TD VACCINES (1 - Tdap) [code = DTAP/TDAP/TD VACCINES (1 - Tdap)] [facility] Future Scheduled Test 1991-01-14 00:00:00 DTAP/TDAP/TD VACCINES (1 - Tdap) [code = DTAP/TDAP/TD VACCINES (1 - Tdap)] [facility] Future Scheduled Test 1991-01-14 00:00:00 DTAP/TDAP/TD VACCINES (1 - Tdap) [code = DTAP/TDAP/TD VACCINES (1 - Tdap)] [facility] Future Scheduled Test 1991-01-14 00:00:00 DTAP/TDAP/TD VACCINES (1 - Tdap) [code = DTAP/TDAP/TD VACCINES (1 - Tdap)] [facility] Future Scheduled Test 1991-01-14 00:00:00 DTAP/TDAP/TD VACCINES (1 - Tdap) [code = DTAP/TDAP/TD VACCINES (1 - Tdap)] [facility] Future Scheduled Test 1991-01-14 00:00:00 DTAP/TDAP/TD VACCINES (1 - Tdap) [code = DTAP/TDAP/TD VACCINES (1 - Tdap)] [facility] Future Scheduled Test 1991-01-14 00:00:00 DTAP/TDAP/TD VACCINES (1 - Tdap) [code = DTAP/TDAP/TD VACCINES (1 - Tdap)] [facility] Future Scheduled Test 1991-01-14 00:00:00 DTAP/TDAP/TD VACCINES (1 - Tdap) [code = DTAP/TDAP/TD VACCINES (1 - Tdap)] [facility] Future Scheduled Test 1991-01-14 00:00:00 DTAP/TDAP/TD VACCINES (1 - Tdap) [code = DTAP/TDAP/TD VACCINES (1 - Tdap)] [facility] Future Scheduled Test 1991-01-14 00:00:00 DTAP/TDAP/TD VACCINES (1 - Tdap) [code = DTAP/TDAP/TD VACCINES (1 - Tdap)] [facility] Future Scheduled Test 1991-01-14 00:00:00 DTAP/TDAP/TD VACCINES (1 - Tdap) [code = DTAP/TDAP/TD VACCINES (1 - Tdap)] [facility] Future Scheduled Test 1991-01-14 00:00:00 DTAP/TDAP/TD VACCINES (1 - Tdap) [code = DTAP/TDAP/TD VACCINES (1 - Tdap)] [facility] Future Scheduled Test 1991-01-14 00:00:00 DTAP/TDAP/TD VACCINES (1 - Tdap) [code = DTAP/TDAP/TD VACCINES (1 - Tdap)] [facility] Future Scheduled Test 1991-01-14 00:00:00 DTAP/TDAP/TD VACCINES (1 - Tdap) [code = DTAP/TDAP/TD VACCINES (1 - Tdap)] [facility] Future Scheduled Test 1991-01-14 00:00:00 DTAP/TDAP/TD VACCINES (1 - Tdap) [code = DTAP/TDAP/TD VACCINES (1 - Tdap)] [facility] Future Scheduled Test 1991-01-14 00:00:00 DTAP/TDAP/TD VACCINES (1 - Tdap) [code = DTAP/TDAP/TD VACCINES (1 - Tdap)] [facility] Future Scheduled Test 1991-01-14 00:00:00 DTAP/TDAP/TD VACCINES (1 - Tdap) [code = DTAP/TDAP/TD VACCINES (1 - Tdap)] [facility] Future Scheduled Test 1991-01-14 00:00:00 DTAP/TDAP/TD VACCINES (1 - Tdap) [code = DTAP/TDAP/TD VACCINES (1 - Tdap)] [facility] Future Scheduled Test 1991-01-14 00:00:00 DTAP/TDAP/TD VACCINES (1 - Tdap) [code = DTAP/TDAP/TD VACCINES (1 - Tdap)] [facility] Future Scheduled Test 1991-01-14 00:00:00 DTAP/TDAP/TD VACCINES (1 - Tdap) [code = DTAP/TDAP/TD VACCINES (1 - Tdap)] [facility] Future Scheduled Test 1991-01-14 00:00:00 DTAP/TDAP/TD VACCINES (1 - Tdap) [code = DTAP/TDAP/TD VACCINES (1 - Tdap)] [facility] Future Scheduled Test 1991-01-14 00:00:00 DTAP/TDAP/TD VACCINES (1 - Tdap) [code = DTAP/TDAP/TD VACCINES (1 - Tdap)] [facility] Future Scheduled Test 1991-01-14 00:00:00 DTAP/TDAP/TD VACCINES (1 - Tdap) [code = DTAP/TDAP/TD VACCINES (1 - Tdap)] [facility] Future Scheduled Test 1991-01-14 00:00:00 DTAP/TDAP/TD VACCINES (1 - Tdap) [code = DTAP/TDAP/TD VACCINES (1 - Tdap)] [facility] Future Scheduled Test 1991-01-14 00:00:00 DTAP/TDAP/TD VACCINES (1 - Tdap) [code = DTAP/TDAP/TD VACCINES (1 - Tdap)] [facility] Future Scheduled Test 1991-01-14 00:00:00 DTAP/TDAP/TD VACCINES (1 - Tdap) [code = DTAP/TDAP/TD VACCINES (1 - Tdap)] [facility] Future Scheduled Test 1991-01-14 00:00:00 DTAP/TDAP/TD VACCINES (1 - Tdap) [code = DTAP/TDAP/TD VACCINES (1 - Tdap)] [facility] Future Scheduled Test 1991-01-14 00:00:00 DTAP/TDAP/TD VACCINES (1 - Tdap) [code = DTAP/TDAP/TD VACCINES (1 - Tdap)] [facility] Future Scheduled Test 1991-01-14 00:00:00 DTAP/TDAP/TD VACCINES (1 - Tdap) [code = DTAP/TDAP/TD VACCINES (1 - Tdap)] [facility] Future Scheduled Test 1991-01-14 00:00:00 DTAP/TDAP/TD VACCINES (1 - Tdap) [code = DTAP/TDAP/TD VACCINES (1 - Tdap)] [facility] Future Scheduled Test 1991-01-14 00:00:00 DTAP/TDAP/TD VACCINES (1 - Tdap) [code = DTAP/TDAP/TD VACCINES (1 - Tdap)] [facility] Future Scheduled Test 1991-01-14 00:00:00 DTAP/TDAP/TD VACCINES (1 - Tdap) [code = DTAP/TDAP/TD VACCINES (1 - Tdap)] [facility] Future Scheduled Test 1991-01-14 00:00:00 DTAP/TDAP/TD VACCINES (1 - Tdap) [code = DTAP/TDAP/TD VACCINES (1 - Tdap)] [facility] Future Scheduled Test 1991-01-14 00:00:00 DTAP/TDAP/TD VACCINES (1 - Tdap) [code = DTAP/TDAP/TD VACCINES (1 - Tdap)] [facility] Future Scheduled Test 1991-01-14 00:00:00 DTAP/TDAP/TD VACCINES (1 - Tdap) [code = DTAP/TDAP/TD VACCINES (1 - Tdap)] [facility] Future Scheduled Test 1990-01-14 00:00:00 HEPATITIS C SCREENING [code = HEPATITIS C SCREENING] [facility] Future Scheduled Test 1990-01-14 00:00:00 HEPATITIS C SCREENING [code = HEPATITIS C SCREENING] [facility] Future Scheduled Test 1990-01-14 00:00:00 HEPATITIS C SCREENING [code = HEPATITIS C SCREENING] [facility] Future Scheduled Test 1990-01-14 00:00:00 HEPATITIS C SCREENING [code = HEPATITIS C SCREENING] [facility] Future Scheduled Test 1990-01-14 00:00:00 HEPATITIS C SCREENING [code = HEPATITIS C SCREENING] [facility] Future Scheduled Test 1990-01-14 00:00:00 HEPATITIS C SCREENING [code = HEPATITIS C SCREENING] [facility] Future Scheduled Test 1990-01-14 00:00:00 HEPATITIS C SCREENING [code = HEPATITIS C SCREENING] [facility] Future Scheduled Test 1990-01-14 00:00:00 HEPATITIS C SCREENING [code = HEPATITIS C SCREENING] [facility] Future Scheduled Test 1990-01-14 00:00:00 HEPATITIS C SCREENING [code = HEPATITIS C SCREENING] [facility] Future Scheduled Test 1990-01-14 00:00:00 HEPATITIS C SCREENING [code = HEPATITIS C SCREENING] [facility] Future Scheduled Test 1990-01-14 00:00:00 HEPATITIS C SCREENING [code = HEPATITIS C SCREENING] [facility] Future Scheduled Test 1990-01-14 00:00:00 HEPATITIS C SCREENING [code = HEPATITIS C SCREENING] [facility] Future Scheduled Test 1990-01-14 00:00:00 HEPATITIS C SCREENING [code = HEPATITIS C SCREENING] [facility] Future Scheduled Test 1990-01-14 00:00:00 HEPATITIS C SCREENING [code = HEPATITIS C SCREENING] [facility] Future Scheduled Test 1990-01-14 00:00:00 HEPATITIS C SCREENING [code = HEPATITIS C SCREENING] [facility] Future Scheduled Test 1990-01-14 00:00:00 HEPATITIS C SCREENING [code = HEPATITIS C SCREENING] [facility] Future Scheduled Test 1990-01-14 00:00:00 HEPATITIS C SCREENING [code = HEPATITIS C SCREENING] [facility] Future Scheduled Test 1990-01-14 00:00:00 HEPATITIS C SCREENING [code = HEPATITIS C SCREENING] [facility] Future Scheduled Test 1990-01-14 00:00:00 HEPATITIS C SCREENING [code = HEPATITIS C SCREENING] [facility] Future Scheduled Test 1990-01-14 00:00:00 HEPATITIS C SCREENING [code = HEPATITIS C SCREENING] [facility] Future Scheduled Test 1990-01-14 00:00:00 HEPATITIS C SCREENING [code = HEPATITIS C SCREENING] [facility] Future Scheduled Test 1990-01-14 00:00:00 HEPATITIS C SCREENING [code = HEPATITIS C SCREENING] [facility] Future Scheduled Test 1990-01-14 00:00:00 HEPATITIS C SCREENING [code = HEPATITIS C SCREENING] [facility] Future Scheduled Test 1990-01-14 00:00:00 HEPATITIS C SCREENING [code = HEPATITIS C SCREENING] [facility] Future Scheduled Test 1990-01-14 00:00:00 HEPATITIS C SCREENING [code = HEPATITIS C SCREENING] [facility] Future Scheduled Test 1990-01-14 00:00:00 HEPATITIS C SCREENING [code = HEPATITIS C SCREENING] [facility] Future Scheduled Test 1990-01-14 00:00:00 HEPATITIS C SCREENING [code = HEPATITIS C SCREENING] [facility] Future Scheduled Test 1990-01-14 00:00:00 HEPATITIS C SCREENING [code = HEPATITIS C SCREENING] [facility] Future Scheduled Test 1990-01-14 00:00:00 HEPATITIS C SCREENING [code = HEPATITIS C SCREENING] [facility] Future Scheduled Test 1990-01-14 00:00:00 HEPATITIS C SCREENING [code = HEPATITIS C SCREENING] [facility] Future Scheduled Test 1990-01-14 00:00:00 HEPATITIS C SCREENING [code = HEPATITIS C SCREENING] [facility] Future Scheduled Test 1990-01-14 00:00:00 HEPATITIS C SCREENING [code = HEPATITIS C SCREENING] [facility] Future Scheduled Test 1990-01-14 00:00:00 HEPATITIS C SCREENING [code = HEPATITIS C SCREENING] [facility] Future Scheduled Test 1990-01-14 00:00:00 HEPATITIS C SCREENING [code = HEPATITIS C SCREENING] [facility] Future Scheduled Test 1990-01-14 00:00:00 HEPATITIS C SCREENING [code = HEPATITIS C SCREENING] [facility] Future Scheduled Test 1990-01-14 00:00:00 HEPATITIS C SCREENING [code = HEPATITIS C SCREENING] [facility] Future Scheduled Test 1990-01-14 00:00:00 HEPATITIS C SCREENING [code = HEPATITIS C SCREENING] [facility] Future Scheduled Test 1990-01-14 00:00:00 HEPATITIS C SCREENING [code = HEPATITIS C SCREENING] [facility] Future Scheduled Test 1990-01-14 00:00:00 HEPATITIS C SCREENING [code = HEPATITIS C SCREENING] [facility] Future Scheduled Test 1990-01-14 00:00:00 HEPATITIS C SCREENING [code = HEPATITIS C SCREENING] [facility] Future Scheduled Test 1990-01-14 00:00:00 HEPATITIS C SCREENING [code = HEPATITIS C SCREENING] [facility] Future Scheduled Test 1990-01-14 00:00:00 HEPATITIS C SCREENING [code = HEPATITIS C SCREENING] [facility] Future Scheduled Test 1990-01-14 00:00:00 HEPATITIS C SCREENING [code = HEPATITIS C SCREENING] [facility] Future Scheduled Test 1990-01-14 00:00:00 HEPATITIS C SCREENING [code = HEPATITIS C SCREENING] [facility] Future Scheduled Test 1990-01-14 00:00:00 HEPATITIS C SCREENING [code = HEPATITIS C SCREENING] [facility] Future Scheduled Test 1990-01-14 00:00:00 HEPATITIS C SCREENING [code = HEPATITIS C SCREENING] [facility] Future Scheduled Test 1990-01-14 00:00:00 HEPATITIS C SCREENING [code = HEPATITIS C SCREENING] [facility] Future Scheduled Test 1990-01-14 00:00:00 HEPATITIS C SCREENING [code = HEPATITIS C SCREENING] [facility] Future Scheduled Test 1990-01-14 00:00:00 HEPATITIS C SCREENING [code = HEPATITIS C SCREENING] [facility] Future Scheduled Test 1990-01-14 00:00:00 HEPATITIS C SCREENING [code = HEPATITIS C SCREENING] [facility] Future Scheduled Test 1990-01-14 00:00:00 HEPATITIS C SCREENING [code = HEPATITIS C SCREENING] [facility] Future Scheduled Test 1990-01-14 00:00:00 HEPATITIS C SCREENING [code = HEPATITIS C SCREENING] [facility] Future Scheduled Test 1990-01-14 00:00:00 HEPATITIS C SCREENING [code = HEPATITIS C SCREENING] [facility] Future Scheduled Test 1990-01-14 00:00:00 HEPATITIS C SCREENING [code = HEPATITIS C SCREENING] [facility] Future Scheduled Test 1990-01-14 00:00:00 HEPATITIS C SCREENING [code = HEPATITIS C SCREENING] [facility] Future Scheduled Test 1990-01-14 00:00:00 HEPATITIS C SCREENING [code = HEPATITIS C SCREENING] [facility] Future Scheduled Test 1990-01-14 00:00:00 HEPATITIS C SCREENING [code = HEPATITIS C SCREENING] [facility] Future Scheduled Test 1990-01-14 00:00:00 HEPATITIS C SCREENING [code = HEPATITIS C SCREENING] [facility] Future Scheduled Test 1990-01-14 00:00:00 HEPATITIS C SCREENING [code = HEPATITIS C SCREENING] [facility] Future Scheduled Test 1990-01-14 00:00:00 HEPATITIS C SCREENING [code = HEPATITIS C SCREENING] [facility] Future Scheduled Test 1990-01-14 00:00:00 HEPATITIS C SCREENING [code = HEPATITIS C SCREENING] [facility] Future Scheduled Test 1990-01-14 00:00:00 HEPATITIS C SCREENING [code = HEPATITIS C SCREENING] [facility] Future Scheduled Test 1990-01-14 00:00:00 HEPATITIS C SCREENING [code = HEPATITIS C SCREENING] [facility] Future Scheduled Test 1990-01-14 00:00:00 HEPATITIS C SCREENING [code = HEPATITIS C SCREENING] [facility] Future Scheduled Test 1990-01-14 00:00:00 HEPATITIS C SCREENING [code = HEPATITIS C SCREENING] [facility] Future Scheduled Test 1990-01-14 00:00:00 HEPATITIS C SCREENING [code = HEPATITIS C SCREENING] [facility] Future Scheduled Test 1990-01-14 00:00:00 HEPATITIS C SCREENING [code = HEPATITIS C SCREENING] [facility] Future Scheduled Test 1990-01-14 00:00:00 HEPATITIS C SCREENING [code = HEPATITIS C SCREENING] [facility] Future Scheduled Test 1990-01-14 00:00:00 HEPATITIS C SCREENING [code = HEPATITIS C SCREENING] [facility] Future Scheduled Test 1990-01-14 00:00:00 HEPATITIS C SCREENING [code = HEPATITIS C SCREENING] [facility] Future Scheduled Test 1987-01-14 00:00:00 Human immunodeficiency virus screening (procedure) [code = [id number]] [facility] Future Scheduled Test 1987-01-14 00:00:00 Human immunodeficiency virus screening (procedure) [code = [id number]] [facility] Future Scheduled Test 1984 00:00:00 Tobacco Cessation Counseling and Screening (12+) [code = Tobacco Cessation Counseling and Screening (12+)] [facility] Future Scheduled Test 1984 00:00:00 Tobacco Cessation Counseling and Screening (12+) [code = Tobacco Cessation Counseling and Screening (12+)] [facility] Future Scheduled Test 1984 00:00:00 Tobacco Cessation Counseling and Screening (12+) [code = Tobacco Cessation Counseling and Screening (12+)] [facility] Scheduled Test 1984 00:00:00 Tobacco Cessation Counseling and Screening (12+) [code = Tobacco Cessation Counseling and Screening (12+)] [facility] Future Scheduled Test 1984 00:00:00 Tobacco Cessation Counseling and Screening (12+) [code = Tobacco Cessation Counseling and Screening (12+)] [facility] Scheduled Test 1984 00:00:00 Tobacco Cessation Counseling and Screening (12+) [code = Tobacco Cessation Counseling and Screening (12+)] [facility] Scheduled Test 1984 00:00:00 Tobacco Cessation Counseling and Screening (12+) [code = Tobacco Cessation Counseling and Screening (12+)] [facility] Future Scheduled Test 1984 00:00:00 Tobacco Cessation Counseling and Screening (12+) [code = Tobacco Cessation Counseling and Screening (12+)] [facility] Scheduled Test 1984 00:00:00 Tobacco Cessation Counseling and Screening (12+) [code = Tobacco Cessation Counseling and Screening (12+)] [facility] Scheduled Test 1984 00:00:00 Tobacco Cessation Counseling and Screening (12+) [code = Tobacco Cessation Counseling and Screening (12+)] [facility] Scheduled Test 1984 00:00:00 Tobacco Cessation Counseling and Screening (12+) [code = Tobacco Cessation Counseling and Screening (12+)] [facility] Scheduled Test 1984 00:00:00 Tobacco Cessation Counseling and Screening (12+) [code = Tobacco Cessation Counseling and Screening (12+)] [facility] Scheduled Test 1984 00:00:00 Tobacco Cessation Counseling and Screening (12+) [code = Tobacco Cessation Counseling and Screening (12+)] [facility] Scheduled Test 1984 00:00:00 Tobacco Cessation Counseling and Screening (12+) [code = Tobacco Cessation Counseling and Screening (12+)] [facility] Scheduled Test 1984 00:00:00 Tobacco Cessation Counseling and Screening (12+) [code = Tobacco Cessation Counseling and Screening (12+)] [facility] Future Scheduled Test 1984 00:00:00 Tobacco Cessation Counseling and Screening (12+) [code = Tobacco Cessation Counseling and Screening (12+)] [facility] Future Scheduled Test 1984 00:00:00 Tobacco Cessation Counseling and Screening (12+) [code = Tobacco Cessation Counseling and Screening (12+)] [facility] Future Scheduled Test 1984 00:00:00 Tobacco Cessation Counseling and Screening (12+) [code = Tobacco Cessation Counseling and Screening (12+)] [facility] Scheduled Test 1984 00:00:00 Tobacco Cessation Counseling and Screening (12+) [code = Tobacco Cessation Counseling and Screening (12+)] [facility] Future Scheduled Test 1984 00:00:00 Tobacco Cessation Counseling and Screening (12+) [code = Tobacco Cessation Counseling and Screening (12+)] [facility] Future Scheduled Test 1984 00:00:00 Tobacco Cessation Counseling and Screening (12+) [code = Tobacco Cessation Counseling and Screening (12+)] [facility] Future Scheduled Test 1984 00:00:00 Tobacco Cessation Counseling and Screening (12+) [code = Tobacco Cessation Counseling and Screening (12+)] [facility] Future Scheduled Test 1984 00:00:00 Tobacco Cessation Counseling and Screening (12+) [code = Tobacco Cessation Counseling and Screening (12+)] [facility] Future Scheduled Test 1972 00:00:00 Screening for malignant neoplasm of breast (procedure) [code = [id number]] [facility] Scheduled Test 1972 00:00:00 CT Colonography (combo) [code = CT Colonography (combo)] [facility] Scheduled Test 1972 00:00:00 Screening for malignant neoplasm of colon (procedure) [code = [id number]] [facility] Future Scheduled Test 1972 00:00:00 Screening for malignant neoplasm of colon (procedure) [code = [id number]] [facility] Scheduled Test 1972 00:00:00 Screening for malignant neoplasm of colon (procedure) [code = [id number]] [facility] Future Scheduled Test 1972 00:00:00 Screening for malignant neoplasm of colon (procedure) [code = [id number]] [facility] Future Scheduled Test 1972 00:00:00 Sigmoidoscopy [code = Sigmoidoscopy] [facility] Scheduled Test 1972 00:00:00 Screening for malignant neoplasm of breast (procedure) [code = [id number]] [facility] Future Scheduled Test 1972 00:00:00 CT Colonography (combo) [code = CT Colonography (combo)] [facility] Scheduled Test 1972 00:00:00 Screening for malignant neoplasm of colon (procedure) [code = [id number]] [facility] Future Scheduled Test 1972 00:00:00 Screening for malignant neoplasm of colon (procedure) [code = 928103088] [facility] Future Scheduled Test 1972 00:00:00 Screening for malignant neoplasm of colon (procedure) [code = 819895414] [facility] Scheduled Test 1972 00:00:00 Screening for malignant neoplasm of colon (procedure) [code = 674393824] [facility] Future Scheduled Test 1972 00:00:00 Sigmoidoscopy [code = Sigmoidoscopy] [facility] Scheduled Test 1972 00:00:00 Screening for malignant neoplasm of breast (procedure) [code = 101562750] [facility] Scheduled Test 1972 00:00:00 CT Colonography (combo) [code = CT Colonography (combo)] [facility] Future Scheduled Test 1972 00:00:00 Screening for malignant neoplasm of colon (procedure) [code = 663548069] [facility] Future Scheduled Test 1972 00:00:00 Screening for malignant neoplasm of colon (procedure) [code = 795791433] [facility] Future Scheduled Test 1972 00:00:00 Screening for malignant neoplasm of colon (procedure) [code = 550722921] [facility] Scheduled Test 1972 00:00:00 Screening for malignant neoplasm of colon (procedure) [code = 947148243] [facility] Future Scheduled Test 1972 00:00:00 Sigmoidoscopy [code = Sigmoidoscopy] [facility] Scheduled Test 1972 00:00:00 Screening for malignant neoplasm of breast (procedure) [code = 390243070] [facility] Scheduled Test 1972 00:00:00 CT Colonography (combo) [code = CT Colonography (combo)] [facility] Scheduled Test 1972 00:00:00 Screening for malignant neoplasm of colon (procedure) [code = 048905034] [facility] Future Scheduled Test 1972 00:00:00 Screening for malignant neoplasm of colon (procedure) [code = 132361254] [facility] Scheduled Test 1972 00:00:00 Screening for malignant neoplasm of colon (procedure) [code = 473923132] [facility] Scheduled Test 1972 00:00:00 Screening for malignant neoplasm of colon (procedure) [code = 392240049] [facility] Future Scheduled Test 1972 00:00:00 Sigmoidoscopy [code = Sigmoidoscopy] [facility] Future Scheduled Test 1972 00:00:00 Screening for malignant neoplasm of breast (procedure) [code = 139144753] [facility] Future Scheduled Test 1972 00:00:00 CT Colonography (combo) [code = CT Colonography (combo)] [facility] Scheduled Test 1972 00:00:00 Screening for malignant neoplasm of colon (procedure) [code = 613063425] [facility] Scheduled Test 1972 00:00:00 Screening for malignant neoplasm of colon (procedure) [code = 267141615] [facility] Scheduled Test 1972 00:00:00 Screening for malignant neoplasm of colon (procedure) [code = 103627010] [facility] Scheduled Test 1972 00:00:00 Screening for malignant neoplasm of colon (procedure) [code = 021895518] [facility] Future Scheduled Test 1972 00:00:00 Sigmoidoscopy [code = Sigmoidoscopy] [facility] Scheduled Test 1972 00:00:00 Screening for malignant neoplasm of breast (procedure) [code = 693520436] [facility] Future Scheduled Test 1972 00:00:00 CT Colonography (combo) [code = CT Colonography (combo)] [facility] Scheduled Test 1972 00:00:00 Screening for malignant neoplasm of colon (procedure) [code = 904011771] [facility] Scheduled Test 1972 00:00:00 Screening for malignant neoplasm of colon (procedure) [code = 052868363] [facility] Future Scheduled Test 1972 00:00:00 Screening for malignant neoplasm of colon (procedure) [code = 630713431] [facility] Future Scheduled Test 1972 00:00:00 Screening for malignant neoplasm of colon (procedure) [code = 926081141] [facility] Future Scheduled Test 1972 00:00:00 Sigmoidoscopy [code = Sigmoidoscopy] [facility] Scheduled Test 1972 00:00:00 Screening for malignant neoplasm of breast (procedure) [code = 019390121] [facility] Scheduled Test 1972 00:00:00 CT Colonography (combo) [code = CT Colonography (combo)] [facility] Scheduled Test 1972 00:00:00 Screening for malignant neoplasm of colon (procedure) [code = 555820661] [facility] Scheduled Test 1972 00:00:00 Screening for malignant neoplasm of colon (procedure) [code = 159414859] [facility] Scheduled Test 1972 00:00:00 Screening for malignant neoplasm of colon (procedure) [code = 106865552] [facility] Scheduled Test 1972 00:00:00 Screening for malignant neoplasm of colon (procedure) [code = 203306426] [facility] Scheduled Test 1972 00:00:00 Sigmoidoscopy [code = Sigmoidoscopy] [facility] Scheduled Test 1972 00:00:00 Screening for malignant neoplasm of breast (procedure) [code = 064014100] [facility] Scheduled Test 1972 00:00:00 CT Colonography (combo) [code = CT Colonography (combo)] [facility] Scheduled Test 1972 00:00:00 Screening for malignant neoplasm of colon (procedure) [code = 895487941] [facility] Scheduled Test 1972 00:00:00 Screening for malignant neoplasm of colon (procedure) [code = 964954671] [facility] Scheduled Test 1972 00:00:00 Screening for malignant neoplasm of colon (procedure) [code = 316829033] [facility] Scheduled Test 1972 00:00:00 Screening for malignant neoplasm of colon (procedure) [code = 570785389] [facility] Scheduled Test 1972 00:00:00 Sigmoidoscopy [code = Sigmoidoscopy] [facility] Scheduled Test 1972 00:00:00 Screening for malignant neoplasm of breast (procedure) [code = 918401561] [facility] Scheduled Test 1972 00:00:00 CT Colonography (combo) [code = CT Colonography (combo)] [facility] Scheduled Test 1972 00:00:00 Screening for malignant neoplasm of colon (procedure) [code = 166414413] [facility] Scheduled Test 1972 00:00:00 Screening for malignant neoplasm of colon (procedure) [code = 132385609] [facility] Scheduled Test 1972 00:00:00 Screening for malignant neoplasm of colon (procedure) [code = 436605560] [facility] Scheduled Test 1972 00:00:00 Screening for malignant neoplasm of colon (procedure) [code = 302359460] [facility] Scheduled Test 1972 00:00:00 Sigmoidoscopy [code = Sigmoidoscopy] [facility] Scheduled Test 1972 00:00:00 Screening for malignant neoplasm of breast (procedure) [code = 962243570] [facility] Scheduled Test 1972 00:00:00 CT Colonography (combo) [code = CT Colonography (combo)] [facility] Scheduled Test 1972 00:00:00 Screening for malignant neoplasm of colon (procedure) [code = 464835207] [facility] Scheduled Test 1972 00:00:00 Screening for malignant neoplasm of colon (procedure) [code = 624968644] [facility] Scheduled Test 1972 00:00:00 Screening for malignant neoplasm of colon (procedure) [code = 312668478] [facility] Scheduled Test 1972 00:00:00 Screening for malignant neoplasm of colon (procedure) [code = 681243074] [facility] Scheduled Test 1972 00:00:00 Sigmoidoscopy [code = Sigmoidoscopy] [facility] Scheduled Test 1972 00:00:00 Screening for malignant neoplasm of breast (procedure) [code = 640641992] [facility] Scheduled Test 1972 00:00:00 CT Colonography (combo) [code = CT Colonography (combo)] [facility] Scheduled Test 1972 00:00:00 Screening for malignant neoplasm of colon (procedure) [code = 589881791] [facility] Scheduled Test 1972 00:00:00 Screening for malignant neoplasm of colon (procedure) [code = 706015232] [facility] Scheduled Test 1972 00:00:00 Screening for malignant neoplasm of colon (procedure) [code = 594496303] [facility] Scheduled Test 1972 00:00:00 Screening for malignant neoplasm of colon (procedure) [code = 340540954] [facility] Future Scheduled Test 1972 00:00:00 Sigmoidoscopy [code = Sigmoidoscopy] [facility] Scheduled Test 1972 00:00:00 Screening for malignant neoplasm of breast (procedure) [code = 393877840] [facility] Scheduled Test 1972 00:00:00 CT Colonography (combo) [code = CT Colonography (combo)] [facility] Scheduled Test 1972 00:00:00 Screening for malignant neoplasm of colon (procedure) [code = 100531373] [facility] Scheduled Test 1972 00:00:00 Screening for malignant neoplasm of colon (procedure) [code = 927610178] [facility] Scheduled Test 1972 00:00:00 Screening for malignant neoplasm of colon (procedure) [code = 561222360] [facility] Scheduled Test 1972 00:00:00 Screening for malignant neoplasm of colon (procedure) [code = 390920766] [facility] Scheduled Test 1972 00:00:00 Sigmoidoscopy [code = Sigmoidoscopy] [facility] Scheduled Test 1972 00:00:00 Screening for malignant neoplasm of breast (procedure) [code = 543841544] [facility] Scheduled Test 1972 00:00:00 CT Colonography (combo) [code = CT Colonography (combo)] [facility] Scheduled Test 1972 00:00:00 Screening for malignant neoplasm of colon (procedure) [code = 633354508] [facility] Scheduled Test 1972 00:00:00 Screening for malignant neoplasm of colon (procedure) [code = 547144349] [facility] Scheduled Test 1972 00:00:00 Screening for malignant neoplasm of colon (procedure) [code = 394044266] [facility] Scheduled Test 1972 00:00:00 Screening for malignant neoplasm of colon (procedure) [code = 705712132] [facility] Scheduled Test 1972 00:00:00 Sigmoidoscopy [code = Sigmoidoscopy] [facility] Scheduled Test 1972 00:00:00 Screening for malignant neoplasm of breast (procedure) [code = 174143200] [facility] Scheduled Test 1972 00:00:00 CT Colonography (combo) [code = CT Colonography (combo)] [facility] Scheduled Test 1972 00:00:00 Screening for malignant neoplasm of colon (procedure) [code = 378066848] [facility] Scheduled Test 1972 00:00:00 Screening for malignant neoplasm of colon (procedure) [code = 504848952] [facility] Scheduled Test 1972 00:00:00 Screening for malignant neoplasm of colon (procedure) [code = 177400268] [facility] Scheduled Test 1972 00:00:00 Screening for malignant neoplasm of colon (procedure) [code = 416383746] [facility] Scheduled Test 1972 00:00:00 Sigmoidoscopy [code = Sigmoidoscopy] [facility] Scheduled Test 1972 00:00:00 Screening for malignant neoplasm of breast (procedure) [code = 184536577] [facility] Scheduled Test 1972 00:00:00 CT Colonography (combo) [code = CT Colonography (combo)] [facility] Scheduled Test 1972 00:00:00 Screening for malignant neoplasm of colon (procedure) [code = 172171841] [facility] Scheduled Test 1972 00:00:00 Screening for malignant neoplasm of colon (procedure) [code = 048766794] [facility] Scheduled Test 1972 00:00:00 Screening for malignant neoplasm of colon (procedure) [code = 451945760] [facility] Scheduled Test 1972 00:00:00 Screening for malignant neoplasm of colon (procedure) [code = 201799345] [facility] Scheduled Test 1972 00:00:00 Sigmoidoscopy [code = Sigmoidoscopy] [facility] Scheduled Test 1972 00:00:00 Screening for malignant neoplasm of breast (procedure) [code = 010189140] [facility] Scheduled Test 1972 00:00:00 CT Colonography (combo) [code = CT Colonography (combo)] [facility] Scheduled Test 1972 00:00:00 Screening for malignant neoplasm of colon (procedure) [code = 015244011] [facility] Scheduled Test 1972 00:00:00 Screening for malignant neoplasm of colon (procedure) [code = 531230928] [facility] Future Scheduled Test 1972 00:00:00 Screening for malignant neoplasm of colon (procedure) [code = 854145368] [facility] Future Scheduled Test 1972 00:00:00 Screening for malignant neoplasm of colon (procedure) [code = 511939298] [facility] Future Scheduled Test 1972 00:00:00 Sigmoidoscopy [code = Sigmoidoscopy] [facility] Scheduled Test 1972 00:00:00 Screening for malignant neoplasm of breast (procedure) [code = 546777605] [facility] Future Scheduled Test 1972 00:00:00 CT Colonography (combo) [code = CT Colonography (combo)] [facility] Scheduled Test 1972 00:00:00 Screening for malignant neoplasm of colon (procedure) [code = 517366197] [facility] Future Scheduled Test 1972 00:00:00 Screening for malignant neoplasm of colon (procedure) [code = 395680329] [facility] Future Scheduled Test 1972 00:00:00 Screening for malignant neoplasm of colon (procedure) [code = 946692685] [facility] Future Scheduled Test 1972 00:00:00 Screening for malignant neoplasm of colon (procedure) [code = 757005650] [facility] Scheduled Test 1972 00:00:00 Sigmoidoscopy [code = Sigmoidoscopy] [facility] Scheduled Test 1972 00:00:00 Screening for malignant neoplasm of breast (procedure) [code = 227842839] [facility] Future Scheduled Test 1972 00:00:00 CT Colonography (combo) [code = CT Colonography (combo)] [facility] Scheduled Test 1972 00:00:00 Screening for malignant neoplasm of breast (procedure) [code = 054141028] [facility] Scheduled Test 1972 00:00:00 CT Colonography (combo) [code = CT Colonography (combo)] [facility] Scheduled Test 1972 00:00:00 Screening for malignant neoplasm of colon (procedure) [code = 098501894] [facility] Scheduled Test 1972 00:00:00 Screening for malignant neoplasm of colon (procedure) [code = 065642256] [facility] Scheduled Test 1972 00:00:00 Screening for malignant neoplasm of colon (procedure) [code = 407861363] [facility] Scheduled Test 1972 00:00:00 Screening for malignant neoplasm of colon (procedure) [code = 099048955] [facility] Scheduled Test 1972 00:00:00 Sigmoidoscopy [code = Sigmoidoscopy] [facility] Scheduled Test 1972 00:00:00 Screening for malignant neoplasm of colon (procedure) [code = 289157305] [facility] Scheduled Test 1972 00:00:00 Screening for malignant neoplasm of colon (procedure) [code = 288911236] [facility] Scheduled Test 1972 00:00:00 Screening for malignant neoplasm of colon (procedure) [code = 429083931] [facility] Future Scheduled Test 1972 00:00:00 Screening for malignant neoplasm of colon (procedure) [code = 803884782] [facility] Future Scheduled Test 1972 00:00:00 Sigmoidoscopy [code = Sigmoidoscopy] [facility] Scheduled Test 1972 00:00:00 Screening for malignant neoplasm of breast (procedure) [code = 107972895] [facility] Scheduled Test 1972 00:00:00 CT Colonography (combo) [code = CT Colonography (combo)] [facility] Future Scheduled Test 1972 00:00:00 Screening for malignant neoplasm of colon (procedure) [code = 443267610] [facility] Future Scheduled Test 1972 00:00:00 Screening for malignant neoplasm of colon (procedure) [code = 555920242] [facility] Future Scheduled Test 1972 00:00:00 Screening for malignant neoplasm of colon (procedure) [code = 580080355] [facility] Future Scheduled Test 1972 00:00:00 Screening for malignant neoplasm of colon (procedure) [code = 302997952] [facility] Future Scheduled Test 1972 00:00:00 Sigmoidoscopy [code = Sigmoidoscopy] [facility] Scheduled Test 1972 00:00:00 Screening for malignant neoplasm of breast (procedure) [code = 687756747] [facility] Future Scheduled Test 1972 00:00:00 CT Colonography (combo) [code = CT Colonography (combo)] [facility] Future Scheduled Test 1972 00:00:00 Screening for malignant neoplasm of colon (procedure) [code = 949987688] [facility] Future Scheduled Test 1972 00:00:00 Screening for malignant neoplasm of colon (procedure) [code = 952771940] [facility] Future Scheduled Test 1972 00:00:00 Screening for malignant neoplasm of colon (procedure) [code = 272434034] [facility] Future Scheduled Test 1972 00:00:00 Screening for malignant neoplasm of colon (procedure) [code = 122919285] [facility] Future Scheduled Test 1972 00:00:00 Sigmoidoscopy [code = Sigmoidoscopy] [facility] Future Scheduled Test 1972 00:00:00 Screening for malignant neoplasm of breast (procedure) [code = 663855001] [facility] Future Scheduled Test 1972 00:00:00 CT Colonography (combo) [code = CT Colonography (combo)] [facility] Future Scheduled Test 1972 00:00:00 Screening for malignant neoplasm of colon (procedure) [code = 054574068] [facility] Future Scheduled Test 1972 00:00:00 Screening for malignant neoplasm of colon (procedure) [code = 711558403] [facility] Future Scheduled Test 1972 00:00:00 Screening for malignant neoplasm of colon (procedure) [code = 918027788] [facility] Future Scheduled Test 1972 00:00:00 Screening for malignant neoplasm of colon (procedure) [code = 019152263] [facility] Future Scheduled Test 1972 00:00:00 Sigmoidoscopy [code = Sigmoidoscopy] [facility] Future Scheduled Test 1972 00:00:00 Screening for malignant neoplasm of breast (procedure) [code = 531410400] [facility] Future Scheduled Test 1972 00:00:00 CT Colonography (combo) [code = CT Colonography (combo)] [facility] Scheduled Test 1972 00:00:00 Screening for malignant neoplasm of colon (procedure) [code = 519164721] [facility] Future Scheduled Test 1972 00:00:00 Screening for malignant neoplasm of colon (procedure) [code = 841622421] [facility] Future Scheduled Test 1972 00:00:00 Screening for malignant neoplasm of colon (procedure) [code = 307411027] [facility] Future Scheduled Test 1972 00:00:00 Screening for malignant neoplasm of colon (procedure) [code = 660317386] [facility] Future Scheduled Test 1972 00:00:00 Sigmoidoscopy [code = Sigmoidoscopy] [facility] Future Scheduled Test 1972 00:00:00 Screening for malignant neoplasm of breast (procedure) [code = 975973572] [facility] Future Scheduled Test 1972 00:00:00 CT Colonography (combo) [code = CT Colonography (combo)] [facility] Future Scheduled Test 1972 00:00:00 Screening for malignant neoplasm of colon (procedure) [code = 586664622] [facility] Future Scheduled Test 1972 00:00:00 Screening for malignant neoplasm of colon (procedure) [code = 949638655] [facility] Future Scheduled Test 1972 00:00:00 Screening for malignant neoplasm of colon (procedure) [code = 890331256] [facility] Future Scheduled Test 1972 00:00:00 Screening for malignant neoplasm of colon (procedure) [code = 898375648] [facility] Future Scheduled Test 1972 00:00:00 Sigmoidoscopy [code = Sigmoidoscopy] [facility] Future Scheduled Test 1972 00:00:00 Screening for malignant neoplasm of breast (procedure) [code = 376935055] [facility] Future Scheduled Test 1972 00:00:00 CT Colonography (combo) [code = CT Colonography (combo)] [facility] Future Scheduled Test 1972 00:00:00 Screening for malignant neoplasm of colon (procedure) [code = 390200441] [facility] Future Scheduled Test 1972 00:00:00 Screening for malignant neoplasm of colon (procedure) [code = 442657886] [facility] Future Scheduled Test 1972 00:00:00 Screening for malignant neoplasm of colon (procedure) [code = 688803947] [facility] Future Scheduled Test 1972 00:00:00 Screening for malignant neoplasm of colon (procedure) [code = 982456801] [facility] Future Scheduled Test 1972 00:00:00 Sigmoidoscopy [code = Sigmoidoscopy] [facility] Future Scheduled Test 1972 00:00:00 Screening for malignant neoplasm of breast (procedure) [code = 985901944] [facility] Future Scheduled Test 1972 00:00:00 CT Colonography (combo) [code = CT Colonography (combo)] [facility] Future Scheduled Test 1972 00:00:00 Screening for malignant neoplasm of colon (procedure) [code = 776167280] [facility] Future Scheduled Test 1972 00:00:00 Screening for malignant neoplasm of colon (procedure) [code = 531784989] [facility] Future Scheduled Test 1972 00:00:00 Screening for malignant neoplasm of colon (procedure) [code = 486997202] [facility] Future Scheduled Test 1972 00:00:00 Screening for malignant neoplasm of colon (procedure) [code = 564077558] [facility] Future Scheduled Test 1972 00:00:00 Screening for malignant neoplasm of breast (procedure) [code = 617773496] [facility] Future Scheduled Test 1972 00:00:00 CT Colonography (combo) [code = CT Colonography (combo)] [facility] Future Scheduled Test 1972 00:00:00 Sigmoidoscopy [code = Sigmoidoscopy] [facility] Future Scheduled Test 1972 00:00:00 Screening for malignant neoplasm of colon (procedure) [code = 601654439] [facility] Future Scheduled Test 1972 00:00:00 Screening for malignant neoplasm of colon (procedure) [code = 109866372] [facility] Future Scheduled Test 1972 00:00:00 Screening for malignant neoplasm of colon (procedure) [code = 120593746] [facility] Future Scheduled Test 1972 00:00:00 Screening for malignant neoplasm of colon (procedure) [code = 623675584] [facility] Future Scheduled Test 1972 00:00:00 Sigmoidoscopy [code = Sigmoidoscopy] [facility] Future Scheduled Test 1972 00:00:00 Screening for malignant neoplasm of breast (procedure) [code = 964916457] [facility] Future Scheduled Test 1972 00:00:00 CT Colonography (combo) [code = CT Colonography (combo)] [facility] Future Scheduled Test 1972 00:00:00 Screening for malignant neoplasm of colon (procedure) [code = 525784034] [facility] Future Scheduled Test 1972 00:00:00 Screening for malignant neoplasm of colon (procedure) [code = 342961399] [facility] Future Scheduled Test 1972 00:00:00 Screening for malignant neoplasm of colon (procedure) [code = 748756672] [facility] Future Scheduled Test 1972 00:00:00 Screening for malignant neoplasm of colon (procedure) [code = 248110266] [facility] Future Scheduled Test 1972 00:00:00 Sigmoidoscopy [code = Sigmoidoscopy] [facility] Future Scheduled Test 1972 00:00:00 Screening for malignant neoplasm of breast (procedure) [code = 647898565] [facility] Future Scheduled Test 1972 00:00:00 CT Colonography (combo) [code = CT Colonography (combo)] [facility] Future Scheduled Test 1972 00:00:00 Screening for malignant neoplasm of colon (procedure) [code = 370164840] [facility] Future Scheduled Test 1972 00:00:00 Screening for malignant neoplasm of colon (procedure) [code = 943033564] [facility] Future Scheduled Test 1972 00:00:00 Screening for malignant neoplasm of colon (procedure) [code = 694114753] [facility] Future Scheduled Test 1972 00:00:00 Screening for malignant neoplasm of colon (procedure) [code = 281047784] [facility] Future Scheduled Test 1972 00:00:00 Sigmoidoscopy [code = Sigmoidoscopy] [facility] Future Scheduled Test 1972 00:00:00 Screening for malignant neoplasm of breast (procedure) [code = 122027973] [facility] Future Scheduled Test 1972 00:00:00 CT Colonography (combo) [code = CT Colonography (combo)] [facility] Future Scheduled Test 1972 00:00:00 Screening for malignant neoplasm of colon (procedure) [code = 895207074] [facility] Future Scheduled Test 1972 00:00:00 Screening for malignant neoplasm of colon (procedure) [code = 950476349] [facility] Future Scheduled Test 1972 00:00:00 Screening for malignant neoplasm of colon (procedure) [code = 541355794] [facility] Future Scheduled Test 1972 00:00:00 Screening for malignant neoplasm of colon (procedure) [code = 402944385] [facility] Future Scheduled Test 1972 00:00:00 Sigmoidoscopy [code = Sigmoidoscopy] [facility] Future Scheduled Test 1972 00:00:00 Screening for malignant neoplasm of breast (procedure) [code = 232199221] [facility] Future Scheduled Test 1972 00:00:00 CT Colonography (combo) [code = CT Colonography (combo)] [facility] Future Scheduled Test 1972 00:00:00 Screening for malignant neoplasm of colon (procedure) [code = 076371741] [facility] Future Scheduled Test 1972 00:00:00 Screening for malignant neoplasm of colon (procedure) [code = 711789630] [facility] Future Scheduled Test 1972 00:00:00 Screening for malignant neoplasm of colon (procedure) [code = 615431789] [facility] Future Scheduled Test 1972 00:00:00 Screening for malignant neoplasm of colon (procedure) [code = 594693514] [facility] Future Scheduled Test 1972 00:00:00 Sigmoidoscopy [code = Sigmoidoscopy] [facility] Future Scheduled Test 1972 00:00:00 Screening for malignant neoplasm of breast (procedure) [code = 229217450] [facility] Future Scheduled Test 1972 00:00:00 CT Colonography (combo) [code = CT Colonography (combo)] [facility] Future Scheduled Test 1972 00:00:00 Screening for malignant neoplasm of colon (procedure) [code = 820532139] [facility] Future Scheduled Test 1972 00:00:00 Screening for malignant neoplasm of colon (procedure) [code = 445179585] [facility] Future Scheduled Test 1972 00:00:00 Screening for malignant neoplasm of colon (procedure) [code = 620814794] [facility] Future Scheduled Test 1972 00:00:00 Screening for malignant neoplasm of colon (procedure) [code = 928464657] [facility] Future Scheduled Test 1972 00:00:00 Sigmoidoscopy [code = Sigmoidoscopy] [facility] Future Scheduled Test 1972 00:00:00 Screening for malignant neoplasm of breast (procedure) [code = 815981205] [facility] Future Scheduled Test 1972 00:00:00 CT Colonography (combo) [code = CT Colonography (combo)] [facility] Future Scheduled Test 1972 00:00:00 Screening for malignant neoplasm of colon (procedure) [code = 020833452] [facility] Future Scheduled Test 1972 00:00:00 Screening for malignant neoplasm of colon (procedure) [code = 269830610] [facility] Future Scheduled Test 1972 00:00:00 Screening for malignant neoplasm of breast (procedure) [code = 559890621] [facility] Future Scheduled Test 1972 00:00:00 Screening for malignant neoplasm of colon (procedure) [code = 450236123] [facility] Future Scheduled Test 1972 00:00:00 CT Colonography (combo) [code = CT Colonography (combo)] [facility] Future Scheduled Test 1972 00:00:00 Screening for malignant neoplasm of colon (procedure) [code = 089920905] [facility] Future Scheduled Test 1972 00:00:00 Screening for malignant neoplasm of colon (procedure) [code = 766953200] [facility] Future Scheduled Test 1972 00:00:00 Screening for malignant neoplasm of colon (procedure) [code = 518398183] [facility] Future Scheduled Test 1972 00:00:00 Screening for malignant neoplasm of colon (procedure) [code = 303545108] [facility] Future Scheduled Test 1972 00:00:00 Sigmoidoscopy [code = Sigmoidoscopy] [facility] Future Scheduled Test 1972 00:00:00 Screening for malignant neoplasm of colon (procedure) [code = 397577340] [facility] Future Scheduled Test 1972 00:00:00 Sigmoidoscopy [code = Sigmoidoscopy] [facility] Future Scheduled Test 1972 00:00:00 Screening for malignant neoplasm of breast (procedure) [code = 540023934] [facility] Future Scheduled Test 1972 00:00:00 CT Colonography (combo) [code = CT Colonography (combo)] [facility] Future Scheduled Test 1972 00:00:00 Screening for malignant neoplasm of colon (procedure) [code = 735340068] [facility] Future Scheduled Test 1972 00:00:00 Screening for malignant neoplasm of colon (procedure) [code = 146718650] [facility] Future Scheduled Test 1972 00:00:00 Screening for malignant neoplasm of colon (procedure) [code = 108128120] [facility] Future Scheduled Test 1972 00:00:00 Screening for malignant neoplasm of colon (procedure) [code = 199103776] [facility] Future Scheduled Test 1972 00:00:00 Sigmoidoscopy [code = Sigmoidoscopy] [facility] Future Scheduled Test 1972 00:00:00 Screening for malignant neoplasm of breast (procedure) [code = 716851417] [facility] Future Scheduled Test 1972 00:00:00 CT Colonography (combo) [code = CT Colonography (combo)] [facility] Future Scheduled Test 1972 00:00:00 Screening for malignant neoplasm of colon (procedure) [code = 516306326] [facility] Future Scheduled Test 1972 00:00:00 Screening for malignant neoplasm of colon (procedure) [code = 970142021] [facility] Future Scheduled Test 1972 00:00:00 Screening for malignant neoplasm of colon (procedure) [code = 972632017] [facility] Future Scheduled Test 1972 00:00:00 Screening for malignant neoplasm of colon (procedure) [code = 511593145] [facility] Future Scheduled Test 1972 00:00:00 Sigmoidoscopy [code = Sigmoidoscopy] [facility] Future Scheduled Test 1972 00:00:00 Screening for malignant neoplasm of breast (procedure) [code = 481696934] [facility] Future Scheduled Test 1972 00:00:00 CT Colonography (combo) [code = CT Colonography (combo)] [facility] Future Scheduled Test 1972 00:00:00 Screening for malignant neoplasm of colon (procedure) [code = 435633818] [facility] Future Scheduled Test 1972 00:00:00 Screening for malignant neoplasm of colon (procedure) [code = 030543255] [facility] Future Scheduled Test 1972 00:00:00 Screening for malignant neoplasm of colon (procedure) [code = 328750426] [facility] Future Scheduled Test 1972 00:00:00 Screening for malignant neoplasm of colon (procedure) [code = 967008749] [facility] Future Scheduled Test 1972 00:00:00 Sigmoidoscopy [code = Sigmoidoscopy] [facility] Future Scheduled Test 1972 00:00:00 Screening for malignant neoplasm of breast (procedure) [code = 782548453] [facility] Future Scheduled Test 1972 00:00:00 CT Colonography (combo) [code = CT Colonography (combo)] [facility] Future Scheduled Test 1972 00:00:00 Screening for malignant neoplasm of colon (procedure) [code = 779217887] [facility] Future Scheduled Test 1972 00:00:00 Screening for malignant neoplasm of colon (procedure) [code = 150383186] [facility] Future Scheduled Test 1972 00:00:00 Screening for malignant neoplasm of colon (procedure) [code = 935393433] [facility] Future Scheduled Test 1972 00:00:00 Screening for malignant neoplasm of colon (procedure) [code = 196098945] [facility] Future Scheduled Test 1972 00:00:00 Sigmoidoscopy [code = Sigmoidoscopy] [facility] Future Scheduled Test 1972 00:00:00 Screening for malignant neoplasm of breast (procedure) [code = 000827970] [facility] Future Scheduled Test 1972 00:00:00 CT Colonography (combo) [code = CT Colonography (combo)] [facility] Future Scheduled Test 1972 00:00:00 Screening for malignant neoplasm of colon (procedure) [code = 220056232] [facility] Future Scheduled Test 1972 00:00:00 Screening for malignant neoplasm of colon (procedure) [code = 041910435] [facility] Future Scheduled Test 1972 00:00:00 Screening for malignant neoplasm of colon (procedure) [code = 910971944] [facility] Future Scheduled Test 1972 00:00:00 Screening for malignant neoplasm of colon (procedure) [code = 358408080] [facility] Future Scheduled Test 1972 00:00:00 Sigmoidoscopy [code = Sigmoidoscopy] [facility] Future Scheduled Test 1972 00:00:00 Screening for malignant neoplasm of breast (procedure) [code = 541780890] [facility] Future Scheduled Test 1972 00:00:00 CT Colonography (combo) [code = CT Colonography (combo)] [facility] Future Scheduled Test 1972 00:00:00 Screening for malignant neoplasm of colon (procedure) [code = 468706416] [facility] Future Scheduled Test 1972 00:00:00 Screening for malignant neoplasm of colon (procedure) [code = 160143028] [facility] Future Scheduled Test 1972 00:00:00 Screening for malignant neoplasm of colon (procedure) [code = 200829802] [facility] Future Scheduled Test 1972 00:00:00 Screening for malignant neoplasm of colon (procedure) [code = 192451641] [facility] Future Scheduled Test 1972 00:00:00 Sigmoidoscopy [code = Sigmoidoscopy] [facility] Future Scheduled Test 1972 00:00:00 Screening for malignant neoplasm of breast (procedure) [code = 655583459] [facility] Future Scheduled Test 1972 00:00:00 CT Colonography (combo) [code = CT Colonography (combo)] [facility] Future Scheduled Test 1972 00:00:00 Screening for malignant neoplasm of colon (procedure) [code = 816038937] [facility] Future Scheduled Test 1972 00:00:00 Screening for malignant neoplasm of colon (procedure) [code = 968646646] [facility] Future Scheduled Test 1972 00:00:00 Screening for malignant neoplasm of colon (procedure) [code = 522625484] [facility] Future Scheduled Test 1972 00:00:00 Screening for malignant neoplasm of colon (procedure) [code = 785946991] [facility] Future Scheduled Test 1972 00:00:00 Sigmoidoscopy [code = Sigmoidoscopy] [facility] Future Scheduled Test 1972 00:00:00 Screening for malignant neoplasm of breast (procedure) [code = 361651701] [facility] Future Scheduled Test 1972 00:00:00 CT Colonography (combo) [code = CT Colonography (combo)] [facility] Future Scheduled Test 1972 00:00:00 Screening for malignant neoplasm of colon (procedure) [code = 411276141] [facility] Future Scheduled Test 1972 00:00:00 Screening for malignant neoplasm of colon (procedure) [code = 960318945] [facility] Future Scheduled Test 1972 00:00:00 Screening for malignant neoplasm of colon (procedure) [code = 709338600] [facility] Future Scheduled Test 1972 00:00:00 Screening for malignant neoplasm of colon (procedure) [code = 851839345] [facility] Future Scheduled Test 1972 00:00:00 Sigmoidoscopy [code = Sigmoidoscopy] [facility] Future Scheduled Test 1972 00:00:00 Screening for malignant neoplasm of breast (procedure) [code = 820736402] [facility] Future Scheduled Test 1972 00:00:00 CT Colonography (combo) [code = CT Colonography (combo)] [facility] Future Scheduled Test 1972 00:00:00 Screening for malignant neoplasm of colon (procedure) [code = 114610179] [facility] Future Scheduled Test 1972 00:00:00 Screening for malignant neoplasm of colon (procedure) [code = 267406463] [facility] Future Scheduled Test 1972 00:00:00 Screening for malignant neoplasm of colon (procedure) [code = 277834835] [facility] Future Scheduled Test 1972 00:00:00 Screening for malignant neoplasm of colon (procedure) [code = 067018512] [facility] Future Scheduled Test 1972 00:00:00 Sigmoidoscopy [code = Sigmoidoscopy] [facility] Future Scheduled Test 1972 00:00:00 Screening for malignant neoplasm of breast (procedure) [code = 182092417] [facility] Future Scheduled Test 1972 00:00:00 CT Colonography (combo) [code = CT Colonography (combo)] [facility] Future Scheduled Test 1972 00:00:00 Screening for malignant neoplasm of colon (procedure) [code = 911632911] [facility] Future Scheduled Test 1972 00:00:00 Screening for malignant neoplasm of colon (procedure) [code = 625661753] [facility] Future Scheduled Test 1972 00:00:00 Screening for malignant neoplasm of colon (procedure) [code = 149458660] [facility] Future Scheduled Test 1972 00:00:00 Screening for malignant neoplasm of colon (procedure) [code = 008099425] [facility] Future Scheduled Test 1972 00:00:00 Sigmoidoscopy [code = Sigmoidoscopy] [facility] Future Scheduled Test 1972 00:00:00 Screening for malignant neoplasm of breast (procedure) [code = 219577373] [facility] Future Scheduled Test 1972 00:00:00 CT Colonography (combo) [code = CT Colonography (combo)] [facility] Future Scheduled Test 1972 00:00:00 Screening for malignant neoplasm of colon (procedure) [code = 399454936] [facility] Future Scheduled Test 1972 00:00:00 Screening for malignant neoplasm of breast (procedure) [code = 677661848] [facility] Future Scheduled Test 1972 00:00:00 CT Colonography (combo) [code = CT Colonography (combo)] [facility] Future Scheduled Test 1972 00:00:00 Screening for malignant neoplasm of colon (procedure) [code = 825117419] [facility] Future Scheduled Test 1972 00:00:00 Screening for malignant neoplasm of colon (procedure) [code = 459907687] [facility] Future Scheduled Test 1972 00:00:00 Screening for malignant neoplasm of colon (procedure) [code = 544854417] [facility] Future Scheduled Test 1972 00:00:00 Screening for malignant neoplasm of colon (procedure) [code = 625522612] [facility] Future Scheduled Test 1972 00:00:00 Sigmoidoscopy [code = Sigmoidoscopy] [facility] Future Scheduled Test 1972 00:00:00 Screening for malignant neoplasm of colon (procedure) [code = 980143153] [facility] Future Scheduled Test 1972 00:00:00 Screening for malignant neoplasm of colon (procedure) [code = 356208142] [facility] Future Scheduled Test 1972 00:00:00 Screening for malignant neoplasm of colon (procedure) [code = 916850699] [facility] Future Scheduled Test 1972 00:00:00 Sigmoidoscopy [code = Sigmoidoscopy] [facility] Future Scheduled Test 1972 00:00:00 Screening for malignant neoplasm of breast (procedure) [code = 253137137] [facility] Future Scheduled Test 1972 00:00:00 CT Colonography (combo) [code = CT Colonography (combo)] [facility] Future Scheduled Test 1972 00:00:00 Screening for malignant neoplasm of colon (procedure) [code = 361573438] [facility] Future Scheduled Test 1972 00:00:00 Screening for malignant neoplasm of colon (procedure) [code = 413715160] [facility] Future Scheduled Test 1972 00:00:00 Screening for malignant neoplasm of colon (procedure) [code = 891204976] [facility] Future Scheduled Test 1972 00:00:00 Screening for malignant neoplasm of colon (procedure) [code = 501733042] [facility] Future Scheduled Test 1972 00:00:00 Sigmoidoscopy [code = Sigmoidoscopy] [facility] Future Scheduled Test 1972 00:00:00 Screening for malignant neoplasm of breast (procedure) [code = 892917605] [facility] Future Scheduled Test 1972 00:00:00 CT Colonography (combo) [code = CT Colonography (combo)] [facility] Future Scheduled Test 1972 00:00:00 Screening for malignant neoplasm of colon (procedure) [code = 269766273] [facility] Future Scheduled Test 1972 00:00:00 Screening for malignant neoplasm of colon (procedure) [code = 221895880] [facility] Future Scheduled Test 1972 00:00:00 Screening for malignant neoplasm of colon (procedure) [code = 538936447] [facility] Future Scheduled Test 1972 00:00:00 Screening for malignant neoplasm of colon (procedure) [code = 136695596] [facility] Future Scheduled Test 1972 00:00:00 Sigmoidoscopy [code = Sigmoidoscopy] [facility] Future Scheduled Test 1972 00:00:00 Screening for malignant neoplasm of breast (procedure) [code = 794370187] [facility] Future Scheduled Test 1972 00:00:00 CT Colonography (combo) [code = CT Colonography (combo)] [facility] Future Scheduled Test 1972 00:00:00 Screening for malignant neoplasm of colon (procedure) [code = 889755989] [facility] Future Scheduled Test 1972 00:00:00 Screening for malignant neoplasm of colon (procedure) [code = 841006009] [facility] Future Scheduled Test 1972 00:00:00 Screening for malignant neoplasm of colon (procedure) [code = 645437961] [facility] Future Scheduled Test 1972 00:00:00 Screening for malignant neoplasm of colon (procedure) [code = 290068162] [facility] Future Scheduled Test 1972 00:00:00 Sigmoidoscopy [code = Sigmoidoscopy] [facility] Future Scheduled Test 1972 00:00:00 Screening for malignant neoplasm of breast (procedure) [code = 684497168] [facility] Future Scheduled Test 1972 00:00:00 CT Colonography (combo) [code = CT Colonography (combo)] [facility] Future Scheduled Test 1972 00:00:00 Screening for malignant neoplasm of colon (procedure) [code = 351663796] [facility] Future Scheduled Test 1972 00:00:00 Screening for malignant neoplasm of colon (procedure) [code = 965381264] [facility] Future Scheduled Test 1972 00:00:00 Screening for malignant neoplasm of colon (procedure) [code = 399238516] [facility] Future Scheduled Test 1972 00:00:00 Screening for malignant neoplasm of colon (procedure) [code = 337900758] [facility] Future Scheduled Test 1972 00:00:00 Sigmoidoscopy [code = Sigmoidoscopy] [facility] Future Scheduled Test 1972 00:00:00 Screening for malignant neoplasm of breast (procedure) [code = 286019904] [facility] Future Scheduled Test 1972 00:00:00 CT Colonography (combo) [code = CT Colonography (combo)] [facility] Future Scheduled Test 1972 00:00:00 Screening for malignant neoplasm of colon (procedure) [code = 248697154] [facility] Future Scheduled Test 1972 00:00:00 Screening for malignant neoplasm of colon (procedure) [code = 411699687] [facility] Future Scheduled Test 1972 00:00:00 Screening for malignant neoplasm of colon (procedure) [code = 040579894] [facility] Future Scheduled Test 1972 00:00:00 Screening for malignant neoplasm of colon (procedure) [code = 774432973] [facility] Future Scheduled Test 1972 00:00:00 Screening for malignant neoplasm of breast (procedure) [code = 782721288] [facility] Future Scheduled Test 1972 00:00:00 Sigmoidoscopy [code = Sigmoidoscopy] [facility] Future Scheduled Test 1972 00:00:00 CT Colonography (combo) [code = CT Colonography (combo)] [facility] Future Scheduled Test 1972 00:00:00 Screening for malignant neoplasm of colon (procedure) [code = 906023938] [facility] Future Scheduled Test 1972 00:00:00 Screening for malignant neoplasm of breast (procedure) [code = 697709356] [facility] Future Scheduled Test 1972 00:00:00 CT Colonography (combo) [code = CT Colonography (combo)] [facility] Future Scheduled Test 1972 00:00:00 Screening for malignant neoplasm of colon (procedure) [code = 364618442] [facility] Future Scheduled Test 1972 00:00:00 Screening for malignant neoplasm of colon (procedure) [code = 497870722] [facility] Future Scheduled Test 1972 00:00:00 Screening for malignant neoplasm of colon (procedure) [code = 642349447] [facility] Future Scheduled Test 1972 00:00:00 Screening for malignant neoplasm of colon (procedure) [code = 486776139] [facility] Future Scheduled Test 1972 00:00:00 Screening for malignant neoplasm of colon (procedure) [code = 800450022] [facility] Future Scheduled Test 1972 00:00:00 Sigmoidoscopy [code = Sigmoidoscopy] [facility] Future Scheduled Test 1972 00:00:00 Screening for malignant neoplasm of colon (procedure) [code = 372370546] [facility] Future Scheduled Test 1972 00:00:00 Screening for malignant neoplasm of colon (procedure) [code = 885363856] [facility] Future Scheduled Test 1972 00:00:00 Screening for malignant neoplasm of breast (procedure) [code = 258910847] [facility] Future Scheduled Test 1972 00:00:00 CT Colonography (combo) [code = CT Colonography (combo)] [facility] Future Scheduled Test 1972 00:00:00 Screening for malignant neoplasm of colon (procedure) [code = 630671140] [facility] Future Scheduled Test 1972 00:00:00 Screening for malignant neoplasm of colon (procedure) [code = 384668961] [facility] Future Scheduled Test 1972 00:00:00 Sigmoidoscopy [code = Sigmoidoscopy] [facility] Future Scheduled Test 1972 00:00:00 Screening for malignant neoplasm of colon (procedure) [code = 884942963] [facility] Future Scheduled Test 1972 00:00:00 Screening for malignant neoplasm of colon (procedure) [code = 405711072] [facility] Future Scheduled Test 1972 00:00:00 Sigmoidoscopy [code = Sigmoidoscopy] [facility] Future Scheduled Test 1972 00:00:00 Screening for malignant neoplasm of breast (procedure) [code = 960801920] [facility] Future Scheduled Test 1972 00:00:00 CT Colonography (combo) [code = CT Colonography (combo)] [facility] Future Scheduled Test 1972 00:00:00 Screening for malignant neoplasm of colon (procedure) [code = 593134660] [facility] Future Scheduled Test 1972 00:00:00 Screening for malignant neoplasm of colon (procedure) [code = 806467386] [facility] Future Scheduled Test 1972 00:00:00 Screening for malignant neoplasm of colon (procedure) [code = 260345788] [facility] Future Scheduled Test 1972 00:00:00 Screening for malignant neoplasm of colon (procedure) [code = 123658458] [facility] Future Scheduled Test 1972 00:00:00 Sigmoidoscopy [code = Sigmoidoscopy] [facility] Future Scheduled Test 1972 00:00:00 Screening for malignant neoplasm of breast (procedure) [code = 147448932] [facility] Future Scheduled Test 1972 00:00:00 CT Colonography (combo) [code = CT Colonography (combo)] [facility] Future Scheduled Test 1972 00:00:00 Screening for malignant neoplasm of colon (procedure) [code = 678727860] [facility] Future Scheduled Test 1972 00:00:00 Screening for malignant neoplasm of colon (procedure) [code = 013286490] [facility] Future Scheduled Test 1972 00:00:00 Screening for malignant neoplasm of colon (procedure) [code = 876257601] [facility] Future Scheduled Test 1972 00:00:00 Screening for malignant neoplasm of colon (procedure) [code = 699511162] [facility] Future Scheduled Test 1972 00:00:00 Sigmoidoscopy [code = Sigmoidoscopy] [facility] Future Scheduled Test 1972 00:00:00 Screening for malignant neoplasm of breast (procedure) [code = 999866280] [facility] Future Scheduled Test 1972 00:00:00 CT Colonography (combo) [code = CT Colonography (combo)] [facility] Future Scheduled Test 1972 00:00:00 Screening for malignant neoplasm of colon (procedure) [code = 098388013] [facility] Future Scheduled Test 1972 00:00:00 Screening for malignant neoplasm of colon (procedure) [code = 300760605] [facility] Future Scheduled Test 1972 00:00:00 Screening for malignant neoplasm of colon (procedure) [code = 656007923] [facility] Future Scheduled Test 1972 00:00:00 Screening for malignant neoplasm of colon (procedure) [code = 395866323] [facility] Future Scheduled Test 1972 00:00:00 Sigmoidoscopy [code = Sigmoidoscopy] [facility] Future Scheduled Test 1972 00:00:00 Screening for malignant neoplasm of breast (procedure) [code = 196307684] [facility] Future Scheduled Test 1972 00:00:00 CT Colonography (combo) [code = CT Colonography (combo)] [facility] Future Scheduled Test 1972 00:00:00 Screening for malignant neoplasm of colon (procedure) [code = 241618999] [facility] Future Scheduled Test 1972 00:00:00 Screening for malignant neoplasm of colon (procedure) [code = 037599833] [facility] Future Scheduled Test 1972 00:00:00 Screening for malignant neoplasm of colon (procedure) [code = 570636023] [facility] Future Scheduled Test 1972 00:00:00 Screening for malignant neoplasm of colon (procedure) [code = 771154346] [facility] Future Scheduled Test 1972 00:00:00 Sigmoidoscopy [code = Sigmoidoscopy] [facility] Future Scheduled Test 1972 00:00:00 Screening for malignant neoplasm of breast (procedure) [code = 539586913] [facility] Future Scheduled Test 1972 00:00:00 CT Colonography (combo) [code = CT Colonography (combo)] [facility] Future Scheduled Test 1972 00:00:00 Screening for malignant neoplasm of colon (procedure) [code = 221050075] [facility] Future Scheduled Test 1972 00:00:00 Screening for malignant neoplasm of colon (procedure) [code = 348032832] [facility] Future Scheduled Test 1972 00:00:00 Screening for malignant neoplasm of colon (procedure) [code = 741224017] [facility] Future Scheduled Test 1972 00:00:00 Screening for malignant neoplasm of colon (procedure) [code = 583737246] [facility] Future Scheduled Test 1972 00:00:00 Sigmoidoscopy [code = Sigmoidoscopy] [facility] Future Scheduled Test 1972 00:00:00 Screening for malignant neoplasm of breast (procedure) [code = 198484137] [facility] Future Scheduled Test 1972 00:00:00 CT Colonography (combo) [code = CT Colonography (combo)] [facility] Future Scheduled Test 1972 00:00:00 Screening for malignant neoplasm of colon (procedure) [code = 771808251] [facility] Future Scheduled Test 1972 00:00:00 Screening for malignant neoplasm of colon (procedure) [code = 448944487] [facility] Future Scheduled Test 1972 00:00:00 Screening for malignant neoplasm of colon (procedure) [code = 957839955] [facility] Future Scheduled Test 1972 00:00:00 Screening for malignant neoplasm of colon (procedure) [code = 992072270] [facility] Future Scheduled Test 1972 00:00:00 Sigmoidoscopy [code = Sigmoidoscopy] [facility] Future Scheduled Test 1972 00:00:00 Screening for malignant neoplasm of breast (procedure) [code = 814297932] [facility] Future Scheduled Test 1972 00:00:00 CT Colonography (combo) [code = CT Colonography (combo)] [facility] Future Scheduled Test 1972 00:00:00 Screening for malignant neoplasm of colon (procedure) [code = 710672270] [facility] Future Scheduled Test 1972 00:00:00 Screening for malignant neoplasm of colon (procedure) [code = 344497920] [facility] Future Scheduled Test 1972 00:00:00 Screening for malignant neoplasm of colon (procedure) [code = 464313466] [facility] Future Scheduled Test 1972 00:00:00 Screening for malignant neoplasm of colon (procedure) [code = 898314097] [facility] Future Scheduled Test 1972 00:00:00 Sigmoidoscopy [code = Sigmoidoscopy] [facility] Future Scheduled Test 1972 00:00:00 Screening for malignant neoplasm of breast (procedure) [code = 370896677] [facility] Future Scheduled Test 1972 00:00:00 CT Colonography (combo) [code = CT Colonography (combo)] [facility] Future Scheduled Test 1972 00:00:00 Screening for malignant neoplasm of colon (procedure) [code = 593098819] [facility] Future Scheduled Test 1972 00:00:00 Screening for malignant neoplasm of colon (procedure) [code = 008518839] [facility] Future Scheduled Test 1972 00:00:00 Screening for malignant neoplasm of colon (procedure) [code = 199749172] [facility] Future Scheduled Test 1972 00:00:00 Screening for malignant neoplasm of colon (procedure) [code = 628785225] [facility] Future Scheduled Test 1972 00:00:00 Sigmoidoscopy [code = Sigmoidoscopy] [facility] Future Scheduled Test 1972 00:00:00 Screening for malignant neoplasm of breast (procedure) [code = 066568548] [facility] Future Scheduled Test 1972 00:00:00 CT Colonography (combo) [code = CT Colonography (combo)] [facility] Future Scheduled Test 1972 00:00:00 Screening for malignant neoplasm of colon (procedure) [code = 049430477] [facility] Future Scheduled Test 1972 00:00:00 Screening for malignant neoplasm of colon (procedure) [code = 889187373] [facility] Future Scheduled Test 1972 00:00:00 Screening for malignant neoplasm of colon (procedure) [code = 679117173] [facility] Future Scheduled Test 1972 00:00:00 Screening for malignant neoplasm of colon (procedure) [code = 083600537] [facility] Future Scheduled Test 1972 00:00:00 Sigmoidoscopy [code = Sigmoidoscopy] [facility] Future Scheduled Test 1972 00:00:00 Screening for malignant neoplasm of breast (procedure) [code = 628940727] [facility] Future Scheduled Test 1972 00:00:00 CT Colonography (combo) [code = CT Colonography (combo)] [facility] Future Scheduled Test 1972 00:00:00 Screening for malignant neoplasm of colon (procedure) [code = 447300271] [facility] Future Scheduled Test 1972 00:00:00 Screening for malignant neoplasm of colon (procedure) [code = 564353353] [facility] Future Scheduled Test 1972 00:00:00 Screening for malignant neoplasm of colon (procedure) [code = 976410454] [facility] Future Scheduled Test 1972 00:00:00 Screening for malignant neoplasm of colon (procedure) [code = 338536556] [facility] Future Scheduled Test 1972 00:00:00 Sigmoidoscopy [code = Sigmoidoscopy] [facility] Future Scheduled Test 1972 00:00:00 Screening for malignant neoplasm of breast (procedure) [code = 901504165] [facility] Future Scheduled Test 1972 00:00:00 CT Colonography (combo) [code = CT Colonography (combo)] [facility] Future Scheduled Test 1972 00:00:00 Screening for malignant neoplasm of colon (procedure) [code = 644361914] [facility] Future Scheduled Test 1972 00:00:00 Screening for malignant neoplasm of colon (procedure) [code = 535207281] [facility] Future Scheduled Test 1972 00:00:00 Screening for malignant neoplasm of colon (procedure) [code = 481779791] [facility] Future Scheduled Test 1972 00:00:00 Screening for malignant neoplasm of colon (procedure) [code = 958215220] [facility] Future Scheduled Test 1972 00:00:00 Sigmoidoscopy [code = Sigmoidoscopy] [facility] Future Scheduled Test 1972 00:00:00 Screening for malignant neoplasm of breast (procedure) [code = 438232360] [facility] Future Scheduled Test 1972 00:00:00 CT Colonography (combo) [code = CT Colonography (combo)] [facility] Future Scheduled Test 1972 00:00:00 Screening for malignant neoplasm of colon (procedure) [code = 700911381] [facility] Future Scheduled Test 1972 00:00:00 Screening for malignant neoplasm of colon (procedure) [code = 612903630] [facility] Future Scheduled Test 1972 00:00:00 Screening for malignant neoplasm of colon (procedure) [code = 600829621] [facility] Future Scheduled Test 1972 00:00:00 Screening for malignant neoplasm of colon (procedure) [code = 426091850] [facility] Future Scheduled Test 1972 00:00:00 Sigmoidoscopy [code = Sigmoidoscopy] [facility] Future Scheduled Test 1972 00:00:00 Screening for malignant neoplasm of breast (procedure) [code = 872354201] [facility] Future Scheduled Test 1972 00:00:00 CT Colonography (combo) [code = CT Colonography (combo)] [facility] Future Scheduled Test 1972 00:00:00 Screening for malignant neoplasm of colon (procedure) [code = 511878561] [facility] Future Scheduled Test 1972 00:00:00 Screening for malignant neoplasm of colon (procedure) [code = 768331631] [facility] Future Scheduled Test 1972 00:00:00 Screening for malignant neoplasm of colon (procedure) [code = 939463381] [facility] Future Scheduled Test 1972 00:00:00 Screening for malignant neoplasm of colon (procedure) [code = 579017365] [facility] Future Scheduled Test 1972 00:00:00 Sigmoidoscopy [code = Sigmoidoscopy] [facility] Future Scheduled Test 1972 00:00:00 Screening for malignant neoplasm of breast (procedure) [code = 221836823] [facility] Future Scheduled Test 1972 00:00:00 CT Colonography (combo) [code = CT Colonography (combo)] [facility] Future Scheduled Test 1972 00:00:00 Screening for malignant neoplasm of colon (procedure) [code = 167689383] [facility] Future Scheduled Test 1972 00:00:00 Screening for malignant neoplasm of colon (procedure) [code = 891941772] [facility] Future Scheduled Test 1972 00:00:00 Screening for malignant neoplasm of colon (procedure) [code = 660322497] [facility] Future Scheduled Test 1972 00:00:00 Screening for malignant neoplasm of colon (procedure) [code = 258166429] [facility] Future Scheduled Test 1972 00:00:00 Sigmoidoscopy [code = Sigmoidoscopy] [facility] Future Scheduled Test 1972 00:00:00 Screening for malignant neoplasm of breast (procedure) [code = 803202635] [facility] Future Scheduled Test 1972 00:00:00 CT Colonography (combo) [code = CT Colonography (combo)] [facility] Future Scheduled Test 1972 00:00:00 Screening for malignant neoplasm of colon (procedure) [code = 838804839] [facility] Future Scheduled Test 1972 00:00:00 Screening for malignant neoplasm of colon (procedure) [code = 738781085] [facility] Future Scheduled Test 1972 00:00:00 Screening for malignant neoplasm of colon (procedure) [code = 896854632] [facility] Future Scheduled Test 1972 00:00:00 Screening for malignant neoplasm of colon (procedure) [code = 156303144] [facility] Future Scheduled Test 1972 00:00:00 Sigmoidoscopy [code = Sigmoidoscopy] [facility] Future Scheduled Test 1972 00:00:00 Screening for malignant neoplasm of breast (procedure) [code = 517978183] [facility] Future Scheduled Test 1972 00:00:00 CT Colonography (combo) [code = CT Colonography (combo)] [facility] Future Scheduled Test 1972 00:00:00 Screening for malignant neoplasm of colon (procedure) [code = 964150769] [facility] Future Scheduled Test 1972 00:00:00 Screening for malignant neoplasm of colon (procedure) [code = 440731575] [facility] Future Scheduled Test 1972 00:00:00 Screening for malignant neoplasm of colon (procedure) [code = 946048985] [facility] Future Scheduled Test 1972 00:00:00 Screening for malignant neoplasm of colon (procedure) [code = 557129728] [facility] Future Scheduled Test 1972 00:00:00 Sigmoidoscopy [code = Sigmoidoscopy] [facility] Goal Plan of Care Not e [code = 67023-3] Goal Plan of Care Not e [code = 90636-1] Goal Plan of Care Not e [code = 23401-8] Goal Plan of Care Not e [code = 19814-1] Goal Plan of Care Not e [code = 42334-3] Goal Plan of Care Not e [code = 71247-3] Goal Plan of Care Not e [code = 68117-9] Goal Plan of Care Not e [code = 35605-9] Goal Plan of Care Not e [code = 57542-7] Goal Plan of Care Not e [code = 79060-6] Goal Plan of Care Not e [code = 92630-2] Goal Plan of Care Not e [code = 16321-4] Goal Plan of Care Not e [code = 15598-2] Goal Plan of Care Not e [code = 87470-3] Goal Plan of Care Not e [code = 06703-7] Goal Plan of Care Not e [code = 13375-5] Goal Plan of Care Not e [code = 16405-0] Goal Plan of Care Not e [code = 54728-2] Goal Plan of Care Not e [code = 38389-6] Goal Plan of Care Not e [code = 28363-1] Goal Plan of Care Not e [code = 14558-6] Goal Plan of Care Not e [code = 22950-0] Goal Plan of Care Not e [code = 88329-4] Goal Plan of Care Not e [code = 72920-7] Goal Plan of Care Not e [code = 56036-9] Goal Plan of Care Not e [code = 32198-4] Goal Plan of Care Not e [code = 64595-7] Goal Plan of Care Not e [code = 09687-6] Goal Plan of Care Not e [code = 77307-7] Goal Plan of Care Not e [code = 75557-4] Goal Plan of Care Not e [code = 74693-3] Goal Plan of Care Not e [code = 39045-9] Goal Plan of Care Not e [code = 89459-4] Goal Plan of Care Not e [code = 93442-6] Goal Plan of Care Not e [code = 06184-9] Encounters Start Date/Time End Date/Time Encounter Type Admission Type Attending [facility] Care Facility Care Department Encounter ID Source 2023-09-07 10:11:03 Inpatient [facility] [id number] [facility] 2023-09-05 10:08:27 Inpatient [facility] [id number] [facility] 2023-09-05 10:05:12 Inpatient [facility] PARR[facility] [id number] [facility] 2023-09-04 04:51:30 Inpatient [facility] PARR[facility] [id number] [facility] 2023-09-04 04:14:55 Inpatient [facility] PARR[facility] [id number] [facility] 2023-09-04 03:08:45 Inpatient [facility] PARRISH [facility] [id number] [facility] 2023-09-04 02:36:28 Inpatient PANKAJ PARRISH [facility] [id number] [facility] 2023-06-16 09:32:36 Inpatient AYDEE DICKENS [facility] [id number] [facility] 2023-06-16 09:32:09 Inpatient AYDEE DICKENS [facility] [id number] [facility] 2023-06-16 09:31:53 Inpatient AYDEE DICKENS [facility] [id number] [facility] 2023-06-14 07:46:02 Inpatient AYDEE DICKENS [facility] [id number] [facility] 2023-06-14 07:39:22 Inpatient AYDEE DICKENS [facility] [id number] [facility] 2023-06-14 06:38:38 Inpatient AYDEE DICKENS [facility] [id number] [facility] 2023-06-13 13:44:18 Inpatient MARIANELA MURPHY [facility] [id number] [facility] 2023-06-13 11:45:24 Inpatient AYDEE DICKENS [facility] [id number] [facility] 2023-05-08 11:21:00 Outpatient EL ADAM GARCIA [facility] [id number] [facility] 2023-04-01 14:26:29 Inpatient ER THOMAS LOZOYA [facility] [id number] [facility] 2023-03-31 09:24:52 Inpatient ER [facility]H [facility] [id number] [facility] 2021-05-20 18:48:04 Emergency [facility] [id number] [facility] 2021-05-20 12:43:40 Emergency [facility] [id number] [facility] 2023-11-05 00:00:00 2024-09-03 02:17:06 Orders Only Doctor Unassigned, [place] Doctor Unassigned, [place] [facility] [place] 1.2.840.114 350.1.13.10 4.2.7.2.686 [id number] [facility] 2023-11-18 00:00:00 2024-09-03 02:07:30 Orders Only Doctor Unassigned, [place] Doctor Unassigned, [place] [facility] ([facility] 1.2840.114 350.1.13.10 4.2.7.2.686 [id number] [facility] 2024-08-10 06:02:28 2024-08-10 23:59:00 Outpatient [facility] [id number] [facility] 2024-08-10 05:24:00 2024-08-10 15:10:00 Emergency Emergency WENDI DICK [facility] General Medicine [id number] [facility] 2024-08-10 05:24:00 2024-08-10 15:10:00 Emergency Brooklynn Paige Shabana [facility] 1.2.840.114 350.1.13.70 8.2.7.2.686 [id number] [facility] 2024-08-10 00:00:00 2024-08-10 06:02:27 Orders Only System, Provider Not In [facility] 1.2840.114 350.1.13.70 8.2.7.2.686 [id number] 2024-04-14 11:30:00 2024-04-14 11:30:00 Outpatient GUSTAVO DELANEY CYNTHIA CYNTHIA [id number] [facility] 2024-04-02 20:43:00 2024-04-03 00:56:00 Emergency X MOHR, CHRISSY MOHR, CHRISSY [facility] [id number] [facility] 2024-04-02 20:43:00 2024-04-03 00:56:00 Emergency Chrissy Mohr [facility] 1..840.114 350.1.13.10 4.2.7.2.686 [id number] [facility] 2024-03-08 00:00:00 2024-03-08 00:00:00 Outpatient MD CYNTHIA MARLEY [id number] [facility] 2024-01-14 00:00:00 2024-02-20 18:26:15 Patient Secure Msg Doctor Unassigned, [place] [facility] [place] 1..840.114 350.1.13.10 4.2.7.2.686 [id number] [facility] 2024-02-19 00:00:00 2024-02-19 00:00:00 Outpatient GUSTAVO DELANEY CYNTHIA MTZ [id number] [facility] 2024-02-16 10:15:00 2024-02-16 10:15:00 Outpatient MORALES BALL CYNTHIA MTZ [id number] [facility] 2024-01-13 00:00:00 2024-02-13 18:19:27 Patient Secure Msg Doctor Unassigned, [place] [facility] ..840.114 350.1.13.10 4.2.7.2.686 [id number] [facility] 2024-01-12 22:04:00 2024-01-13 00:00:00 Emergency X VASUT, RADHA VASUT, RADHA [facility] [id number] [facility] 2024-01-12 22:04:00 2024-01-13 00:00:00 Emergency Radha Wyatt [facility] 1.2.840.114 350.1.13.10 4.2.7.2.686 [id number] [facility] 2024-01-12 00:00:00 2024-01-12 16:22:23 Transition of Care Veronique Carrillo [facility] 1.2840.114 350.1.13.10 4.2.7.2.686 [id number] [facility] 2024-01-09 16:11:00 2024-01-10 15:56:00 Outpatient X DARRICK ALTAMIRANO [facility] [id number] [facility] 2024-01-09 16:11:00 2024-01-10 15:56:00 Hospital Encounter Olena Del Castillo K Paige Khan, Mohammad A. [facility] 1.840.114 350.1.13.10 4.2.7.2.686 [id number] [facility] 2023-12-17 00:00:00 2023-12-17 00:00:00 Transition of Care Jodi Berg [facility] 1.2840.114 350.1.13.10 4.2.7.2.686 [id number] [facility] 2023-12-14 13:34:00 2023-12-15 11:08:00 Outpatient X TAL BENAVIDEZ [facility] [id number] [facility] 2023-12-14 13:34:00 2023-12-15 11:08:00 [facility] 1.2840.114 350.1.13.10 4.2.7.2.686 [id number] [facility] 2023-12-07 00:00:00 2023-12-07 00:00:00 Outpatient GUSTAVO DELANEY [id number] Cynthia Garcia 2023-12-02 13:05:00 2023-12-03 19:00:00 Outpatient X NIMO ALDAElton [facility] [id number] [facility] 2023-12-02 13:05:00 2023-12-03 19:00:00 Hospital Encounter Connor Renee [facility] Mueller [facility] 1.2.840.114 350.1.13.10 4.2.7.2.686 [id number] [facility] 2023-12-01 00:00:00 2023-12-01 10:40:26 Transition of Care Madeline Mckinley Sharon YANETBubba WALLACE PLACHRISTIAN 1.2.840.114 350.1.13.10 4.2.7.2.686 [id number] [facility] 2023-11-30 00:00:00 2023-11-30 10:41:56 Transition of Care Madeline Mckinley 1.2.840.114 350.1.13.10 4.2.7.2.686 [id number] [facility] 2023-11-21 21:12:00 2023-11-28 16:01:00 Inpatient X MADELINE PIERRE [facility] [id number] [facility] 2023-11-21 21:12:00 2023-11-28 16:01:00 Hospital Encounter Madeline Pierre Donnell Khan, Rizwan Al Hemyari, Ivis Rodriguez, Ryder Joshi [facility] 1.2840.114 350.1.13.10 4.2.7.2.686 [id number] [facility] 2023-11-26 14:15:00 2023-11-26 14:15:00 Outpatient AARON LEDESMA CYNTHIA MTZ [id number] [facility] 2023-11-23 13:45:00 2023-11-23 14:45:00 [facility] 1.2.840.114 350.1.13.10 4.2.7.2.686 [id number] [facility] 2023-11-18 00:00:00 2023-11-18 00:00:00 Outpatient EFRA BABCOCK [id number] Cynthia [facility] 2023-11-15 00:00:00 2023-11-15 00:00:00 Outpatient CYNTHIA MTZ [id number] Cynthia [facility] 2023-11-15 00:00:00 2023-11-15 00:00:00 Outpatient CYNTHIA MTZ [id number] [facility] 2023-11-15 00:00:00 2023-11-15 00:00:00 Outpatient CYNTHIA MTZ [id number] [facility] 2023-11-12 15:15:00 2023-11-12 15:15:00 Outpatient GUSTAVO DELANEY [id number] [facility] 2023-11-12 00:00:00 2023-11-12 00:00:00 Outpatient CYNTHIA MTZ [id number] [facility] 2023-11-10 09:30:00 2023-11-10 09:30:00 Outpatient MYLA LIEBERMAN [id number] [facility] 2023-11-09 00:00:00 2023-11-09 00:00:00 Outpatient GUSTAVO DELANEY [id number] Cyn[facility] 2023-11-09 00:00:00 2023-11-09 00:00:00 Outpatient MYLA LIEBERMAN [id number] Cynthia [facility] 2023-11-07 17:51:2023-11-07 22:04:00 Emergency ER JUANY [facility] [id number] [facility] 2023-11-07 17:51:00 2023-11-07 22:04:00 emergency [facility] [id number] 2023-11-05 00:00:00 2023-11-05 00:00:00 Outpatient TIFFANY MONTANEZ [id number] [facility] 2023-11-03 00:00:00 2023-11-03 00:00:00 Outpatient CYNTHIA MTZ [id number] Cynthia [facility] 2023-10-29 00:00:00 2023-10-29 00:00:00 Outpatient GUSTAVO DELANEY [id number] Cyn[facility] 2023-10-26 00:00:00 2023-10-26 00:00:00 Outpatient EFRA BABCOCK [id number] Cynthia [facility] 2023-10-22 00:00:00 2023-10-22 00:00:00 Outpatient GUSTAVO DELANEY [id number] Cynthia [facility] 2023-10-16 11:10:00 2023-10-16 11:10:00 Outpatient SIDDHARTH STANFORD [id number] Cynthia [facility] 2023-10-15 00:00:00 2023-10-15 00:00:00 Outpatient MD CYNTHIA MARLEY [id number] Cynthia [facility] 2023-10-15 00:00:00 2023-10-15 00:00:00 Outpatient MARGOT GUILLEN [id number] [facility] 2023-10-15 00:00:00 2023-10-15 00:00:00 Outpatient MARGOT GUILLEN [id number] [facility] 2023-10-06 10:45:00 2023-10-06 10:45:00 Outpatient SARAI JULES [id number] [facility] 2023-10-05 11:30:00 2023-10-05 11:30:00 Outpatient PREZAS, GUSTAVO MTZ CYNTHIA [id number] Cynthia [facility] 2023-10-01 00:00:00 2023-10-01 00:00:00 Outpatient PREZAS, GUSTAVO MTZ CYNTHIA [id number] Cynthia [facility] 2023-09-30 14:15:00 2023-09-30 14:15:00 Outpatient PREZAS, GUSTAVO MTZ CYNTHIA [id number] Cynthia [facility] 2023-09-24 00:00:00 2023-09-24 00:00:00 Outpatient PREZAS, GUSTAVO CYNTHIA CYNTHIA [id number] Cynthia Seybold 2023-09-23 00:00:00 2023-09-23 00:00:00 Outpatient PROVIDERTIFFANY [id number] Cynthia Seybold 2023-09-22 00:00:00 2023-09-22 00:00:00 Outpatient PREZAS, GUSTAVO MTZ CYNTHIA [id number] Cynthia Seybold 2023-09-22 00:00:00 2023-09-22 00:00:00 Outpatient GUILLENMARGOT PIERCE CYNTHIA MTZ [id number] Cynthia Sey[facility] 2023-09-16 00:00:00 2023-09-16 00:00:00 Outpatient PREZAS, GUSTAVO CYNTHIA MTZ [id number] Cyntiha Seybold 2023-09-16 00:00:00 2023-09-16 00:00:00 Outpatient PREZAS, GUSTAVO MTZ CYNTHIA [id number] Cynthia Seybold 2023-09-16 00:00:00 2023-09-16 00:00:00 Outpatient PREZAS, GUSTAVO CYNTHIA MTZ [id number] Cynthia Seybold 2023-09-14 00:00:00 2023-09-14 00:00:00 Outpatient MARGOT GUILLEN CYNTHIA MTZ [id number] Cynthia Sey[facility] 2023-09-14 00:00:00 2023-09-14 00:00:00 Outpatient GUILLENMARGOT PIERCE CYNTHIA MTZ [id number] Cynthia Sey[facility] 2023-09-11 11:00:00 2023-09-11 11:00:00 Outpatient YONATAN LOERNZO CYNTHIA MTZ [id number] Cynthia [facility] 2023-09-09 00:00:00 2023-09-09 00:00:00 Outpatient CYNTHIA MTZ [id number] Cynthia [facility] 2023-09-04 00:14:00 2023-09-08 10:51:00 Inpatient ER EDWARD FERRER YUNG Neurosurger y [id number] [facility] 2023-09-04 00:14:00 2023-09-08 10:51:00 Hospital Encounter ER London Loyola, Pankaj Altamirano Edward Sosa [facility] [id number] [facility] 2023-09-07 18:41:43 2023-09-07 18:41:43 Outpatient EDWARD MANE [facility] [id number] [facility] 2023-09-03 20:52:00 2023-09-03 23:44:00 emergency [facility] [id number] 2023-09-03 20:52:00 2023-09-03 23:44:00 Emergency ER JUANY [facility] [id number] [facility] 2023-09-02 00:00:00 2023-09-02 00:00:00 Outpatient TIFFANY MONTANEZ [id number] [facility] 2023-09-01 15:30:00 2023-09-01 15:30:00 Outpatient DEMETRIUS TOBAR [id number] [facility] 2023-08-19 00:00:00 2023-08-19 00:00:00 Outpatient QUIN CALVILLO [facility] [id number] [facility] 2023-08-13 00:00:00 2023-08-13 13:44:39 Orders Only Quin Scruggs [facility] [id number] [facility] 2023-08-12 13:49:00 2023-08-12 16:12:00 Emergency X MJ BRYAN [facility] ERT [id number] [facility] 2023-08-12 13:49:00 2023-08-12 16:12:00 Emergency Mj Bryan [facility] 1.2.840.114 350.1.13.10 4.2.7.2.686 [id number] [facility] 2023-06-15 00:00:00 2023-06-18 10:20:39 Orders Only Provider, Not In System [facility] [id number] [facility] 2023-06-13 03:43:00 2023-06-16 19:45:00 Inpatient ER AYDEE GO [facility] Internal Med [id number] [facility] 2023-06-13 03:43:00 2023-06-16 19:45:00 Hospital Encounter ER Marianela Burgess Sahar [facility] [id number] [facility] 2023-06-13 16:30:06 2023-06-13 16:30:06 Outpatient AYDEE DICKENS [facility] [id number] [facility] 2023-06-13 00:00:00 2023-06-13 00:00:00 Orders Only [facility] [id number] [facility] 2023-06-13 00:00:00 2023-06-13 00:00:00 Travel [facility] [id number] [facility] 2023-06-12 00:00:00 2023-06-12 00:00:00 Telephone Dallas Gomez [facility] [id number] [facility] 2023-05-28 06:45:00 2023-06-04 17:36:00 Inpatient ADAM BRANTLEY [facility] Surgery [id number] [facility] 2023-05-28 06:45:00 2023-06-04 17:36:00 Hospital Encounter Adam Brantley [facility] [id number] [facility] 2023-06-01 09:10:00 2023-06-01 13:00:00 Anesthesia Event Harry Newsome Mujtaba [facility] [id number] [facility] 2023-06-01 09:00:00 2023-06-01 11:30:00 Surgery Adam Garcia [facility] [id number] [facility] 2023-06-01 09:47:57 2023-06-01 09:47:57 Outpatient ADAM BRANTLEY [facility] [id number] [facility] 2023-06-01 09:40:34 2023-06-01 09:40:34 [facility] [id number] [facility] 2023-05-31 09:25:55 2023-05-31 23:59:00 Inpatient ADAM BRANTLEY [facility] [id number] [facility] 2023-05-31 09:00:00 2023-05-31 23:59:00 Hospital Encounter Adam Garcia [facility] [id number] [facility] 2023-05-28 18:15:29 2023-05-28 18:15:29 Outpatient [facility] [id number] [facility] 2023-05-28 08:30:00 2023-05-28 11:54:00 Anesthesia Event Ramya Yue [facility] [id number] [facility] 2023-05-28 11:41:14 2023-05-28 11:41:14 Outpatient ADAM BRANTLEY [facility] [id number] [facility] 2023-05-28 08:30:00 2023-05-28 11:00:00 Surgery Adam Garcia [facility] [id number] [facility] 2023-05-28 10:00:47 2023-05-28 10:00:47 Outpatient ADAM BRANTLEY [facility] [id number] [facility] 2023-05-28 00:00:00 2023-05-28 00:00:00 Travel [facility] [id number] [facility] 2023-05-26 09:00:00 2023-05-26 09:00:00 Hospital Encounter Adam Garcia [facility] [id number] [facility] 2023-05-26 00:00:00 2023-05-26 00:00:00 Outpatient EL ADAM GARCIA SLE [facility] [id number] [facility] 2023-05-26 00:00:00 2023-05-26 00:00:00 [facility] [id number] 2023-05-26 00:00:00 2023-05-26 00:00:00 Travel [facility] [id number] [facility] 2023-05-13 11:43:03 2023-05-13 11:43:[address] [facility] [facility] [id number] Adria Martínez 2023-05-12 00:00:00 2023-05-12 00:00:00 Orders Only Adam Garcia [facility] [id number] [facility] 2023-05-08 14:11:21 2023-05-08 14:11:[address] [facility] [facility] [id number] Adria Martínez 2023-03-29 19:25:00 2023-04-02 20:48:00 Inpatient ER THOMAS LOZOYA [facility] [id number] [facility] 2023-03-29 19:25:00 2023-04-02 20:48:00 Hospital Encounter ER Connie Davey Shireen Kulkarni, Mrinalini Z [facility] [id number] [facility] 2023-03-31 08:32:56 2023-03-31 00:00:00 Inpatient ER MARIAH ALDRIDGE SLERigoberto [facility] [id number] [facility] 2023-03-30 10:24:12 2023-03-30 23:59:00 Outpatient ER CONNIE DAVEY SLERigoberto [facility] [id number] [facility] 2023-03-30 09:40:00 2023-03-30 23:59:00 Hospital Encounter Connie Davey [facility] [id number] [facility] 2023-03-30 13:46:20 2023-03-30 13:46:20 Outpatient ER [facility]IAH [facility]IDGE [facility] [id number] [facility] 2023-03-30 13:46:14 2023-03-30 13:46:14 Outpatient ER MARIAH ALDRIDGE [facility] [id number] [facility] 2023-03-30 10:24:04 2023-03-30 10:24:04 Outpatient ER CONNIE DAVEY [facility] [id number] [facility] 2023-03-30 00:00:00 2023-03-30 00:00:00 Orders Only [facility] [id number] [facility] 2023-03-30 00:00:00 2023-03-30 00:00:00 Travel [facility] [id number] [facility] 2022-12-11 08:56:00 2022-12-11 15:29:00 Emergency X Alfonso ALVARADO [facility] ERT [id number] [facility] 2022-12-11 08:56:00 2022-12-11 15:29:00 Emergency Alfonso Alvarado Lorelei [facility] 1.2.840.114 350.1.13.10 4.2.7.2.686 [id number] [facility] 2022-11-17 17:25:00 2022-11-18 01:19:00 Emergency X RITCHIE WARREN [facility] ERT [id number] [facility] 2022-11-17 17:25:00 2022-11-18 01:19:00 Emergency Ritchie Warren [facility] 1.2.840.114 350.1.13.10 4.2.7.2.686 [id number] [facility] 2022-08-28 00:00:00 2022-08-28 00:00:00 Patient Outreach Margot Beckman 1.2.840.114 350.1.13.10 4.2.7.2.686 [id number] [facility] 2022-08-20 00:00:00 2022-08-20 00:00:00 Patient Outreach Margot Beckman 1.2.840.114 350.1.13.10 4.2.7.2.686 [id number] [facility] 2022-08-02 17:30:00 2022-08-03 14:29:00 Outpatient ER PARRISH WHEATLEY [facility] Neurology [id number] [facility] 2022-08-02 17:30:00 2022-08-03 14:29:00 Hospital Encounter ER Halima Mendoza Kinjal M Ibe, Chimkama Ngozi Cynthia [facility] [id number] [facility] 2022-08-03 00:00:00 2022-08-03 00:00:00 Orders Only [facility] [id number] [facility] 2022-08-02 00:00:00 2022-08-02 00:00:00 Travel [facility] [id number] [facility] 2022-07-31 11:42:00 2022-08-01 21:48:00 Inpatient X DAMI LOWRY [facility] [id number] [facility] 2022-07-31 11:42:00 2022-08-01 21:48:00 Hospital Encounter Megan Rondon Yaman [facility] 1.2840.114 350.1.13.10 4.2.7.2.686 [id number] [facility] 2022-08-01 00:00:00 2022-08-01 00:00:00 Transition of Care Maria Teresa Nicole BLAYNE BENAV[facility]ES 1.2.840.114 350.1.13.10 4.2.7.2.686 [id number] [facility] 2022-07-28 14:41:38 2022-07-28 14:41:[address] [facility] 0109 Adria Martínez 2022-07-28 00:00:00 2022-07-28 00:00:00 Outpatient Visit [id number] 2022-07-24 13:24:40 2022-07-24 13:24:[address] [facility] [id number] Adria Martínez 2022-05-23 14:51:01 2022-05-23 14:51:[address] [facility] [facility] 1104 Adria Martínez 2022-05-23 00:00:00 2022-05-23 00:00:00 Outpatient Visit [id number] 2022-05-04 20:22:00 2022-05-08 14:44:00 Outpatient X CHANTEL BOJORQUEZ [facility] [id number] [facility] 2022-05-04 20:22:00 2022-05-08 14:44:00 [facility] 1.2.840.114 350.1.13.10 4.2.7.2.686 [id number] [facility] 2022-04-13 13:06:00 2022-04-15 15:00:00 Inpatient X SELINA MARTINES [facility] BERNARDINO [id number] [facility] 2022-04-13 13:06:00 2022-04-15 15:00:00 Hospital Encounter Sapna Vargas Muhammad Zeeshan Chhabra, [facility] 1..114 350.1.13.10 4.2.7.2.686 [id number] [facility] 2022-02-19 10:20:00 2022-02-19 10:30:00 Imm/Inj Visit Vaccine, [place] Dangelo Pak [facility] 1.2.114 350.1.13.10 4.2.7.2.686 [id number] [facility] 2022-02-19 10:20:00 2022-02-19 10:20:00 Outpatient JOSE MENDOZA [facility] [id number] [facility] 2021-11-23 15:07:00 2021-11-23 17:03:00 Emergency WILLIAMS BRADY [facility] ERT [id number] [facility] 2021-11-23 15:07:00 2021-11-23 17:03:00 Emergency Megan Rondon Folusho F [facility] 1..114 350.1.13.10 4.2.7.2.686 [id number] [facility] 2021-11-21 09:40:00 2021-11-21 09:40:00 Outpatient R [facility] [id number] [facility] 2021-05-24 09:30:00 2021-05-24 09:30:00 Outpatient R JOSE PAK [facility] [id number] [facility] 2021-05-24 08:47:51 2021-05-24 08:57:51 Imm/Inj Visit Vaccine, [place] Dangelo Pak [facility] 1..114 350.1.13.10 4.2.7.2.686 [id number] [facility] 2021-05-03 09:40:00 2021-05-03 09:59:35 Outpatient R JOSE PAK [facility] [id number] [facility] 2021-05-03 09:17:43 2021-05-03 09:59:35 Imm/Inj Visit Santos, [place] Jose Santiago [facility] 1.2.840.114 350.1.13.10 4.2.7.2.686 [id number] [facility] 2021-04-16 00:00:00 2021-04-16 00:00:00 Orders Only Doctor Unassigned, [place] [facility] 1.2.840.114 350.1.13.10 4.2.7.2.686 [id number] [facility] 2021-03-17 00:00:00 2021-03-17 00:00:00 Telephone Miky Nvaa [facility] 1.2.840.114 350.1.13.10 4.2.7.2.686 [id number] [facility] 2021-03-16 20:08:00 2021-03-16 23:24:00 Emergency Fabrice Chakraborty [facility] 1.2.840.114 350.1.13.10 4.2.7.2.686 [id number] [facility] 2021-03-14 18:59:34 2021-03-14 20:19:13 Urgent Care Lydia Desouza Unknown, Attending formerly [facility] 1.2840.114 350.1.13.10 4.2.7.2.686 [id number] [facility] 2021-03-14 19:00:00 2021-03-14 19:00:00 Outpatient R UNKNOWN, ATTENDING [facility] [id number] [facility] 2021-02-19 10:49:00 2021-02-19 14:48:00 Emergency Estefania Monroy [facility] 1.2.840.114 350.1.13.10 4.2.7.2.686 [id number] [facility] 2019-03-09 00:00:00 2019-03-09 00:00:[address] [facility] 1.2.840.114 350.1.13.10 4.2.7.2.686 [id number] [facility] 2019-03-09 00:00:00 2019-03-09 00:00:00 Yehuda Zimmerman [facility] 1.2.840.114 350.1.13.10 4.2.7.2.686 [id number] Results Test Description Test Time Test Comments Results Result Co mments Source [facility] [id number] 02:35:03* Test Item Value Reference Range Interpretation Comme nts NT-proBNP (test code = 32226-4) 2090 pg/mL <=125 H LYNDSAY (test code = LYNDSAY) Positive: Heart Failure Likely Lab Interpretation (test code = 98613-3) [facility] (NA, K, CL, CO2, GLUCOSE, BUN, CREATININE, CA)2024-04-03 02:26:01* Test Item Value Reference Range Interpretation Comme [facility] NA (test code = 5118613935) 136 mmol/L 135-145 K (test code = 8149838207) 3.2 mmol/L 3.5-5.0 L CL (test code = 4092572275) 101 mmol/L 98-108 CO2 TOTAL (test code = 7015508977) 23 mmol/L 23-31 AGAP (test code = 1702036857) 12 2-16 BUN (test code = 1016815897) 4 mg/dL 7-23 L GLUCOSE (test code = 1802354969) 165 mg/dL 70-110 H CREATININE (test code = 2160-0) 0.67 mg/dL 0.50-1.04 CALCIUM (test code = 6601628589) 8.5 mg/dL 8.6-10.6 L eGFR (test code = 30986-5) 105.3 mL/min/1.73m2 CKD-EPI eGFR (2020). Assuming creatinine has been stable day-to-day for at least three months, the eGFR indicates Category G1 (>= 90 mL/min/1.73 m2) Lab Interpretation (test code = 71115-6) Abnormal [facility] with [id number] 02:19:04* Test Item Value Reference Range Interpretation [...] g/dL 31.6-35.1 L RDW-SD (test code = 80354-0) 53.9 fL 39.0-49.9 H RDW-CV (test code = 788-0) 18.2 % 12.0-15.5 H PLT (test code = 777-3) 458 166-358 H MPV (test code = 47445-8) 8.6 fL 9.5-12.9 L NRBC/100 WBC (test code = 1916109693) 0.0 0.0-10.0 NRBC x10^3 (test code = 1279768145) See_Comment [Automated messa ge] The system which generated this result transmitted reference range: 10*3/?L. The reference range was not used to interpret this result as normal/abnormal. GRAN MAT (NEUT) % (test code = 770-8) 62.8 % IMM GRAN % (test code = 3348077591) 0.40 % LYMPH % (test code = 736-9) 28.0 % MONO % (test code = 5905-5) 6.5 % EOS % (test code = 713-8) 1.3 % BASO % (test code = 706-2) 1.0 % GRAN MAT x10^3(ANC) (test code = 7057726271) 4.36 10*3/uL 1.88-7.09 IMM GRAN x10^3 (test code = 7229081698) 0.03 10*3/uL 0.00-0.06 LYMPH x10^3 (test code = 731-0) 1.94 10*3/uL 1.32-3.29 MONO x10^3 (test code = 742-7) 0.45 10*3/uL 0.33-0.92 EOS x10^3 (test code = 711-2) 0.09 10*3/uL 0.03-0.39 BASO x10^3 (test code = 704-7) 0.07 10*3/uL 0.01-0.07 Lab Interpretation (test code = 06725-3) [id number] 02:05:20* Test Item Value Reference Range Interpretation Comme nts LACTIC ACID (test code = 7989999256) 2.61 mmol/L 0.50-2.20 H Lab Interpretation (test cod e = 34788-1) [facility] [id number] 04:25:23* Test Item Value Reference Range Interpretation Comme nts TROPONIN I (test code = 2194449337) 0.004 ng/mL <=0.034 LYNDSAY (test code = [...] of biotin. Lab Interpretation (test code = 67439-5) [facility] (22139)2024-01-13 04:13:41* Test Item Value Reference Range Interpretation Comme nts NA (test code = 7553141170) 140 mmol/L 135-145 K (test code = 8341107337) 3.7 mmol/L 3.5-5.0 CL (test code = 8709192470) 103 mmol/L 98-108 CO2 TOTAL (test code = 8239361126) 25 mmol/L 23-31 AGAP (test code = 8835711254) 12 2-16 BUN (test code = 8953129325) 12 mg/dL 7-23 GLUCOSE (test code = 8735407338) 143 mg/dL 70-110 H CREATININE (test code = 2160-0) 0.91 mg/dL 0.50-1.04 TOTAL BILI (test code = 1117582948) 0.4 mg/dL 0.1-1.1 CALCIUM (test code = 4152507695) 9.0 mg/dL 8.6-10.6 T PROTEIN (test code = 7108251747) 7.7 g/dL 6.3-8.2 ALBUMIN (test code = 8060096547) 4.2 g/dL 3.5-5.0 ALK PHOS (test code = 2228641767) 93 U/L 34-122 ALTv (test code = 1742-6) 9 U/L 5-35 AST(SGOT) (test code = 7266367754) 18 U/L 13-40 eGFR (test code = 74581-7) 76.5 mL/min/1.73m2 CKD-EPI eGFR (2020). Assuming creatinine has been stable day-to-day for at least three months, the eGFR indicates Category G2 (60 - 89 mL/min/1.73 m2) Lab Interpretation (test code = 41008-1) Abnormal [facility] with [id number] 03:58:19* Test Item Value Reference Range Interpretation [...] g/dL 31.6-35.1 L RDW-SD (test code = 99169-6) 59.0 fL 39.0-49.9 H RDW-CV (test code = 788-0) 18.7 % 12.0-15.5 H PLT (test code = 777-3) 394 166-358 H MPV (test code = 32270-2) 8.5 fL 9.5-12.9 L NRBC/100 WBC (test code = 3556293595) 0.0 0.0-10.0 NRBC x10^3 (test code = 4331808437) See_Comment [Automated messa ge] The system which generated this result transmitted reference range: 10*3/?L. The reference range was not used to interpret this result as normal/abnormal. GRAN MAT (NEUT) % (test code = 770-8) 60.6 % IMM GRAN % (test code = 2288848747) 1.40 % LYMPH % (test code = 736-9) 26.9 % MONO % (test code = 5905-5) 8.7 % EOS % (test code = 713-8) 1.8 % BASO % (test code = 706-2) 0.6 % GRAN MAT x10^3(ANC) (test code = 9981690452) 5.14 10*3/uL 1.88-7.09 IMM GRAN x10^3 (test code = 6976690630) 0.12 10*3/uL 0.00-0.06 H LYMPH x10^3 (test code = 731-0) 2.28 10*3/uL 1.32-3.29 MONO x10^3 (test code = 742-7) 0.74 10*3/uL 0.33-0.92 EOS x10^3 (test code = 711-2) 0.15 10*3/uL 0.03-0.39 BASO x10^3 (test code = 704-7) 0.05 10*3/uL 0.01-0.07 Lab Interpretation (test code = 12389-7) [facility]normal [facility]an[facility] ([facility]E)2024-01-10 16:40:03* Test Item Value Reference Range Interpretation Comme nts Height (test code = 4133888049) 62 in Weight (test code = 4908189574) 200 lbs Systolic BP (test code = 7305699485) 90 mmHg Diastolic BP (test code = 7512469451) 66 mmHg Heart Rate (test code = 3350224279) 69 bpm BSA (test code = 8101600997) 1.91 m2 LVOT diameter (test code = 2153363235) 2.13 cm LVOT area (test code = 2442347707) 3.60 cm2 LA size (test code = 7964075755) 3.5 cm LAV(MOD-sp4) (test code = 5340062784) 55.70 mL E wave decelartion time (test code = 0372246168) 0.12 s MV stenosis pressure 1/2 time (test code = 6134097055) 35.0 ms MV Peak A Evette (test code = 6129194161) 117.0 cm/s MV Peak E Evette (test code = 0046713787) 94.3 cm/s E/A ratio (test code = 5106983452) 0.81 ratio MV E/e' septal (test code = 4135912378) 10.2 cm/s LVOT stroke volume (test code = 7893741053) 59.50 cm3 LVOT peak evette (test code = 0266733751) 99.8 cm/s LVOT mn grad (test code = 3759942484) 1.9 mmHg AV LVOT peak gradient (test code = 1380692856) 4.0 mmHg LVOT peak VTI (test code = 6525154045) 16.7 cm LV V1 mean (test code = 4413981820) 64.40 cm/s Aortic valve mean velocity (test code = 2967090421) 155.3 cm/s Ao peak evette (test code = 7421226113) 222.6 cm/s Ao VTI (test code = 9467989530) 33.6 cm AV area by cont VTI (test code = 6858956068) 1.8 cm2 AV area peak evette (test code = 5526920350) 1.6 cm2 Ao max PG (test code = 1001001653) 19.80 mm[Hg] AV peak gradient (test code = 1579610477) 19.8 mmHg AV valve area (test code = 4966490091) 1.77 cm2 AV mean gradient (test code = 9804145785) 10.6 mmHg AV regurgitation pressure 1/2 time (test code = 9835810950) 651.6 ms AI dec slope (test code = 9633597857) 180.60 cm/s2 AI max evette (test code = 5217559751) 401.80 cm/s AI max PG (test code = 2629870353) 64.60 mm[Hg] LVIDD (test code = 6875575221) 4.90 cm Left Ventricular End Diastolic Volume by Teichholz Method (test code = 7555880) 114.6 mL IVS (test code = 6201488910) 1.17 cm Interventricular Septum Diastolic Thickness by 2D (test code = 3842796) 1.17 cm LVPWD (test code = 2033279925) 1.17 cm PW (test code = 9430991470) 1.17 cm 0.6-1.1 EF(Teich) (test code = 8841343582) 20.70 % LVIDS (test code = 9312689443) 4.50 cm Left Ventricular End Systolic Volume by Teichholz Method (test code = 1267527) 90.9 mL FS (test code = 0809061094) 9 % EF - 2D (test code = 28154912) 20.70 % Radiology Study observation (narrative) (test code = 79240-7) LYNDSAY (test code = LYNDSAY) ?Left?Ventricle: Left [...] mL of Optison ultrasound enhancing agent used. [facility] CenterLactic Acid Whole Natap9418-49-53 02:02:28* Test Item Value Reference Range Interpretation Comme nts LACTIC ACID (test code = 4047741752) 1.36 mmol/L 0.50-2.20 Lab Interpretation (test cod e = 65812-0) Normal [facility]CT [facility] NPMWOXFHO0756-97-52 01:16:45CTA CHEST WITH IV CONTRAST ORDERING PHYSICIAN: [...] adenoma. ACDF hardware in the lower cervical spine.[facility]XR [facility] 1 [id number] 23:07:58Exam: Chest (1 View), 01/09/2024 4:15 PM. Ordering Physician: OLENA DEL CASTILLO. History: Chest Pain. Technique: One view of the chest. Comparison: 12/14/2023. Findings: Cardiac silhouette is mildly enlarged. There is no pneumothorax. There isno consolidation or pleural effusion. Pleural and diaphragmatic contoursare normal. Calcified granuloma is seen in the left upper lobe. Changes ofanterior cervical discectomy and fusion are seen.[facility] CenterTROPONIN [id number] 22:51:19* Test Item Value Reference Range Interpretation Comme [facility] TROPONIN I (test code = 7827881040) 0.006 ng/mL <=0.034 LYNDSAY (test code = [...] of biotin. Lab Interpretation (test code = 57782-2) Normal [facility] CenterN-TERMINAL PAO-[id number] 22:48:38* Test Item Value Reference Range Interpretation Comme nts NT-proBNP (test code = 12084-0) 877 pg/mL <=125 LYNDSAY (test code = LYNDSAY) Result Indeterminate-Consid er causes of NT-proBNP elevation other than Heart failure such as acute coronary syndrome, pulmonary embolism, pulmonary hypertension, sepsis, stroke, and renal dysfunction. Lab Interpretation (test code = 27838-1) [facility] (48503)2024-01-09 22:42:20* Test Item Value Reference Range Interpretation Comme nts NA (test code = 4135947637) 137 mmol/L 135-145 K (test code = 0658852138) 3.8 mmol/L 3.5-5.0 CL (test code = 4871513064) 104 mmol/L 98-108 CO2 TOTAL (test code = 4943977775) 25 mmol/L 23-31 AGAP (test code = 4664262433) 8 2-16 BUN (test code = 1349980490) 7 mg/dL 7-23 GLUCOSE (test code = 9498003648) 96 mg/dL 70-110 CREATININE (test code = 2160-0) 0.60 mg/dL 0.50-1.04 TOTAL BILI (test code = 6081534498) 0.4 mg/dL 0.1-1.1 CALCIUM (test code = 8400271540) 8.7 mg/dL 8.6-10.6 T PROTEIN (test code = 3871640921) 7.0 g/dL 6.3-8.2 ALBUMIN (test code = 4609491028) 3.9 g/dL 3.5-5.0 ALK PHOS (test code = 1488466287) 101 U/L 34-122 ALTv (test code = 1742-6) 7 U/L 5-35 AST(SGOT) (test code = 7424990901) 20 U/L 13-40 eGFR (test code = 80326-4) 108.8 mL/min/1.73m2 CKD-EPI eGFR (20 21). Assuming creatinine has been stable day-to-day for at least three months, the eGFR indicates Category G1 (>= 90 mL/min/1.73 m2) [facility] CenterD-EOWTW3643-43-15 22:28:57* Test Item Value Reference Range Interpretation Comments D-DIMER (test code = 3505387323) 0.87 See_Comment H [Automated message] The system [...] a diagnosis. Lab Interpretation (test code = 15852-1) Abnormal [facility] WITH [id number] 22:09:01* Test Item Value Reference Range Interpretation [...] g/dL 31.6-35.1 L RDW-SD (test code = 15688-8) 58.1 fL 39.0-49.9 H RDW-CV (test code = 788-0) 18.6 % 12.0-15.5 H PLT (test code = 777-3) 312 166-358 MPV (test code = 86936-0) 8.3 fL 9.5-12.9 L NRBC/100 WBC (test code = 6560867658) 0.0 0.0-10.0 NRBC x10^3 (test code = 9062027290) See_Comment [Automated [facility]] The system which generated this result transmitted reference range: 10*3/?L. The reference range was not used to interpret this result as normal/abnormal. GRAN MAT (NEUT) % (test code = 770-8) 60.1 % IMM GRAN % (test code = 9519780985) 0.70 % LYMPH % (test code = 736-9) 27.3 % MONO % (test code = 5905-5) 10.1 % EOS % (test code = 713-8) 1.2 % BASO % (test code = 706-2) 0.6 % GRAN MAT x10^3(ANC) (test code = 3242604459) 5.12 10*3/uL 1.88-7.09 IMM GRAN x10^3 (test code = 6619494648) 0.06 10*3/uL 0.00-0.06 LYMPH x10^3 (test code = 731-0) 2.33 10*3/uL 1.32-3.29 MONO x10^3 (test code = 742-7) 0.86 10*3/uL 0.33-0.92 EOS x10^3 (test code = 711-2) 0.10 10*3/uL 0.03-0.39 BASO x10^3 (test code = 704-7) 0.05 10*3/uL 0.01-0.07 Lab Interpretation (test code = 33479-5) Abnormal [facility] GLUCOSE (AUTOMATED)2023-12-15 12:45:21* Test Item Value Reference Range Interpretation Comme nts POCT GLU (test code = 9628314563) 144 mg/dL 70-110 H Lab Interpretation (test cod e = 79042-3) Abnormal [facility] CenterThyroid Stimulating Ccezpsp5481-86-00 01:46:59 * Test Item Value Reference Range Interpretation Comme nts TSH (test code = 9324265617) 1.14 0.45-4.70 Lab Interpretation (test cod e = 38122-3) Normal [facility] CenterFR [id number] 01:33:00* Test Item Value Reference Range Interpretation Comme nts FREE T3 (test code = 8084661967) 3.68 pg/mL 2.77-5.27 Lab Interpretation (test cod e = 01499-2) Normal [facility] GLUCOSE (AUTOMATED)2023-12-15 00:57:48* Test Item Value Reference Range Interpretation Comme [facility] POCT GLU (test code = 1492584282) 131 mg/dL 70-110 H Lab Interpretation (test cod e = 93606-8) [facility]normal [facility] CenterTroponin [id number] 21:45:52* Test Item Value Reference Range Interpretation Comme [facility] TROPONIN I (test code = 4366830828) 0.009 ng/mL <=0.034 LYNDSAY (test code = [...] of biotin. Lab Interpretation (test code = 09017-9) Normal [facility] CenterCom. Metabolic Panel (15468)2023-12-14 20:19:49* Test Item Value Reference Range Interpretation Comme [facility] NA (test code = 6014218779) 138 mmol/L 135-145 K (test code = 5830548954) 3.5 mmol/L 3.5-5.0 CL (test code = 1943580369) 108 mmol/L 98-108 CO2 TOTAL (test code = 1547399290) 24 mmol/L 23-31 AGAP (test code = 0378440811) 6 2-16 BUN (test code = 8930533282) 7 mg/dL 7-23 GLUCOSE (test code = 0606034831) 96 mg/dL 70-110 CREATININE (test code = 2160-0) 0.51 mg/dL 0.50-1.04 TOTAL BILI (test code = 4194491605) 0.4 mg/dL 0.1-1.1 CALCIUM (test code = 3945068833) 8.6 mg/dL 8.6-10.6 T PROTEIN (test code = 0474453889) 6.8 g/dL 6.3-8.2 ALBUMIN (test code = 6203314550) 3.8 g/dL 3.5-5.0 ALK PHOS (test code = 8030300039) 107 U/L 34-122 ALTv (test code = 1742-6) 13 U/L 5-35 AST(SGOT) (test code = 8382010417) 28 U/L 13-40 eGFR (test code = 94922-9) 113.2 mL/min/1.73m2 CKD-EPI eGFR (20 21). Assuming creatinine has been stable day-to-day for at least three months, the eGFR indicates Category G1 (>= 90 mL/min/1.73 m2) [facility] CenterTroponin [id number] 20:15:27* Test Item Value Reference Range Interpretation Comme nts TROPONIN I (test code = 4647714974) 0.009 ng/mL <=0.034 LYNDSAY (test code = [...] of biotin. Lab Interpretation (test code = 07207-0) Normal [facility] CenterN-Terminal Qpi-Rmp0979-46-27 20:12:51* Test Item Value Reference Range Interpretation Comme nts NT-proBNP (test code = 10958-2) 2250 pg/mL <=125 H LYNDSAY (test code = LYNDSAY) Positive: Heart Failure Likely Lab Interpretation (test code = 69902-3) [facility] 1 [id number] 20:00:17EXAM: XR CHEST 1 VW COMPARISON: 12/02/2023 HISTORY: 53 years-old Female; shortness of breath FINDINGS: Lungs: The lung volumes are normal. Left upper lung calcified granuloma. Nofocal opacities. No pneumothorax. No pleural effusion. Heart/Mediastinum: The cardiac silhouette appears normal. Bones andsoft tissues: No acute osseous findings are detected.Redemonstrated ACDF projecting over the lower cervical spine.[facility] CenterD-Ymydc5553-38-59 19:45:05* Test Item Value Reference Range Interpretation Comments D-DIMER (test code = 3343620655) 1.33 See_Comment H [Automated message] The system [...] a diagnosis. Lab Interpretation (test code = 60999-2) Abnormal [facility] with Mocb4982-50-81 19:39:29* Test Item Value Reference Range Interpretation [...] g/dL 31.6-35.1 L RDW-SD (test code = 31955-8) 70.2 fL 39.0-49.9 H RDW-CV (test code = 788-0) 21.6 % 12.0-15.5 H PLT (test code = 777-3) 259 166-358 MPV (test code = 74622-5) 8.7 fL 9.5-12.9 L NRBC/100 WBC (test code = 6095941957) 0.0 0.0-10.0 NRBC x10^3 (test code = 6062725334) See_Comment [Automated messa ge] The system which generated this result transmitted reference range: 10*3/?L. The reference range was not used to interpret this result as normal/abnormal. GRAN MAT (NEUT) % (test code = 770-8) 57.7 % IMM GRAN % (test code = 5738160893) 0.40 % LYMPH % (test code = 736-9) 30.2 % MONO % (test code = 5905-5) 9.9 % EOS % (test code = 713-8) 0.8 % BASO % (test code = 706-2) 1.0 % GRAN MAT x10^3(ANC) (test code = 7964649346) 4.17 10*3/uL 1.88-7.09 IMM GRAN x10^3 (test code = 9757887723) 0.03 10*3/uL 0.00-0.06 LYMPH x10^3 (test code = 731-0) 2.19 10*3/uL 1.32-3.29 MONO x10^3 (test code = 742-7) 0.72 10*3/uL 0.33-0.92 EOS x10^3 (test code = 711-2) 0.06 10*3/uL 0.03-0.39 BASO x10^3 (test code = 704-7) 0.07 10*3/uL 0.01-0.07 Lab Interpretation (test code = 11799-8) [facility]normal [facility] CenterPOTN GLUCOSE ([facility]ATED)2023-12-03 21:30:58* Test Item Value Reference Range Interpretation Comme nts POCT GLU (test code = 0601806150) 102 mg/dL 70-110 Lab Interpretation (test cod e = 80039-0) [facility] (NA, K, CL, CO2, GLUCOSE, BUN, CREATININE, CA)2023-12-03 18:22:31* Test Item Value Reference Range Interpretation Comme nts NA (test code = 8999883683) 135 mmol/L 135-145 K (test code = 1498308766) 3.9 mmol/L 3.5-5.0 CL (test code = 6632603159) 103 mmol/L 98-108 CO2 TOTAL (test code = 4652975346) 29 mmol/L 23-31 AGAP (test code = 6396393462) 3 2-16 BUN (test code = 6007853927) 12 mg/dL 7-23 GLUCOSE (test code = 7467551621) 85 mg/dL 70-110 CREATININE (test code = 2160-0) 0.63 mg/dL 0.50-1.04 CALCIUM (test code = 3654088859) 8.7 mg/dL 8.6-10.6 eGFR (test code = 03467-0) 107.6 mL/min/1.73m2 CKD-EPI eGFR (20 21). Assuming creatinine has been stable day-to-day for at least three months, the eGFR indicates Category G1 (>= 90 mL/min/1.73 m2) [facility] GLUCOSE (AUTOMATED)2023-12-03 16:52:56* Test Item Value Reference Range Interpretation Comme [facility] POCT GLU (test code = 3850187987) 98 mg/dL 70-110 Lab Interpretation (test cod e = 52456-4) Normal [facility] GLUCOSE (AUTOMATED)2023-12-03 13:01:11* Test Item Value Reference Range Interpretation Comme [facility] POCT GLU (test code = 2639319248) 102 mg/dL 70-110 Lab Interpretation (test cod e = 57554-8) [facility] (NA, K, CL, CO2, GLUCOSE, BUN, CREATININE, CA)2023-12-03 10:22:08* Test Item Value Reference Range Interpretation Comme nts NA (test code = 3931319399) 138 mmol/L 135-145 K (test code = 4725160499) 3.2 mmol/L 3.5-5.0 L CL (test code = 6156546572) 105 mmol/L 98-108 CO2 TOTAL (test code = 9883571764) 26 mmol/L 23-31 AGAP (test code = 9953776110) 7 2-16 BUN (test code = 2170622027) 11 mg/dL 7-23 GLUCOSE (test code = 1887449183) 96 mg/dL 70-110 CREATININE (test code = 2160-0) 0.61 mg/dL 0.50-1.04 CALCIUM (test code = 4225370694) 8.6 mg/dL 8.6-10.6 eGFR (test code = 61345-2) 108.4 mL/min/1.73m2 CKD-EPI eGFR (2020). Assuming creatinine has been stable day-to-day for at least three months, the eGFR indicates Category G1 (>= 90 mL/min/1.73 m2) Lab Interpretation (test code = 56493-4) [facility]normal [facility] CenterMagnesium2024-05-16 10:22:08* Test Item Value Reference Range Interpretation Comme nts MAGNESIUM (test code = 8975622617) 1.9 mg/dL 1.7-2.4 Lab Interpretation (test cod e = 24495-4) Normal [facility] CenterHepatic Function Panel (47547) (ALB,T.PRO,BILI T,BU/BC,ALT,AST,ALK PHOS)2023-12-03 10:22:08* Test Item Value Reference Range Interpretation Comme nts TOTAL BILI (test code = 9030447173) 0.5 mg/dL 0.1-1.1 BILI UNCON (test code = 2681065375) 0.2 mg/dL 0.1-1.1 BILI CONJ (test code = 7982787939) 0.0 mg/dL 0.0-0.3 T PROTEIN (test code = 9730506521) 6.7 g/dL 6.3-8.2 ALBUMIN (test code = 0550157886) 3.7 g/dL 3.5-5.0 ALK PHOS (test code = 8848033046) 135 U/L 34-122 H ALTv (test code = 1742-6) 26 U/L 5-35 AST(SGOT) (test code = 3121765661) 24 U/L 13-40 Lab Interpretation (test cod e = 75620-1) [facility]normal [facility] CenterAC Panel 21 + Lactic Bezu0580-50-74 02:00:25* Test Item Value Reference Range Interpretation Comme nts PH (test code = 9641536326) 7.40 7.32-7.42 PCO2 NOEMI (test code = 2036847263) 40 41-51 L PO2 NOEMI (test code = 7543632313) 34 25-40 HCO3 NOEMI (test code = 4184129466) 24 24-28 AC VBE(BEAKER) (test code = 6936618782) -0.8 mEq/L THB NOEMI (test code = 9833048946) 9.3 g/dL 12.0-16.0 L %O2HB NOEMI (test code = 9264587288) 57.9 % 52.0-63.0 %COHB NOEMI (test code = 6707796462) 1.1 % 0.0-1.5 %METHB NOEMI (test code = 8424903967) 0.3 % 0.4-1.5 L VOL%O2 NOEMI (test code = 7105987626) 7.6 % 6.0-12.0 NA (test code = 4716861381) 139 mmol/L 135-145 K+ (test code = 4737724868) 3.5 mmol/L 3.5-5.0 AC CA IONZ (test code = 6512848385) 4.50 mg/dL 4.50-5.30 GLUCOSE (test code = 9809172552) 88 mg/dL 70-110 LACTIC ACID (test code = 9657346056) 1.63 mmol/L 0.50-2.20 QUES Lab Interpretation (test cod e = 14584-1) [facility]CT [facility] P[facility]MONARY [id number] 19:47:28HISTORY: Chest pain, rule out P.E. 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 Lab Interpretation (test code = 23547-4) Normal [facility] CenterN-Terminal Rtz-Jps7915-20-15 19:37:29* Test Item Value Reference Range Interpretation Comme nts NT-proBNP (test code = 09441-1) 3420 pg/mL <=125 H LYNDSAY (test code = LYNDSAY) Positive: Heart Failure Likely Lab Interpretation (test code = 23739-8) Abnormal [facility] with Ukmt6165-76-99 19:28:47* Test Item Value Reference Range Interpretation [...] g/dL 31.6-35.1 L RDW-SD (test code = 06870-0) 68.9 fL 39.0-49.9 H RDW-CV (test code = 788-0) 22.6 % 12.0-15.5 H PLT (test code = 777-3) 379 166-358 H MPV (test code = 60245-9) 9.1 fL 9.5-12.9 L NRBC/100 WBC (test code = 1639561758) 0.0 0.0-10.0 NRBC x10^3 (test code = 1754474997) See_Comment [Automated messa ge] The system which generated this result transmitted reference range: 10*3/?L. The reference range was not used to interpret this result as normal/abnormal. GRAN MAT (NEUT) % (test code = 770-8) 73.5 % IMM GRAN % (test code = 1246019405) 1.70 % LYMPH % (test code = 736-9) 14.9 % MONO % (test code = 5905-5) 8.3 % EOS % (test code = 713-8) 1.2 % BASO % (test code = 706-2) 0.4 % GRAN MAT x10^3(ANC) (test code = 9096015920) 8.05 10*3/uL 1.88-7.09 H IMM GRAN x10^3 (test code = 1748064913) 0.19 10*3/uL 0.00-0.06 H LYMPH x10^3 (test code = 731-0) 1.63 10*3/uL 1.32-3.29 MONO x10^3 (test code = 742-7) 0.91 10*3/uL 0.33-0.92 EOS x10^3 (test code = 711-2) 0.13 10*3/uL 0.03-0.39 BASO x10^3 (test code = 704-7) 0.04 10*3/uL 0.01-0.07 Lab Interpretation (test code = 29542-1) [facility] 1 [id number] 19:28:17HISTORY: Dyspnea. TECHNIQUE: Portable AP view of the chest is obtained. Comparison made with11/21/2023 study. FINDINGS: No acute pneumonia. No pneumothorax or pleural effusion orpulmonary congestion detected. Mild cardiomegaly noted. Multilevel lowercervical ACDF surgical changes partially visualized. Mild degenerativechanges noted in the right glenohumeral joint. CONCLUSIONS: Mild cardiomegaly.[facility]. Metabolic Panel (18936) 2023-12-02 19:27:30* Test Item Value Reference Range Interpretation Comme nts NA (test code = 3785184876) 138 mmol/L 135-145 K (test code = 3338808233) 3.8 mmol/L 3.5-5.0 CL (test code = 3769919758) 106 mmol/L 98-108 CO2 TOTAL (test code = 6377870426) 22 mmol/L 23-31 L AGAP (test code = 4576260280) 10 2-16 BUN (test code = 8534439291) 11 mg/dL 7-23 GLUCOSE (test code = 3649191274) 103 mg/dL 70-110 CREATININE (test code = 2160-0) 0.56 mg/dL 0.50-1.04 TOTAL BILI (test code = 0721032263) 0.8 mg/dL 0.1-1.1 CALCIUM (test code = 1221641080) 8.9 mg/dL 8.6-10.6 T PROTEIN (test code = 9269479159) 7.3 g/dL 6.3-8.2 ALBUMIN (test code = 9864407910) 3.9 g/dL 3.5-5.0 ALK PHOS (test code = 3581359163) 147 U/L 34-122 H ALTv (test code = 1742-6) 34 U/L 5-35 AST(SGOT) (test code = 9854340115) 30 U/L 13-40 eGFR (test code = 76885-1) 110.7 mL/min/1.73m2 CKD-EPI eGFR (2020). Assuming creatinine has been stable day-to-day for at least three months, the eGFR indicates Category G1 (>= 90 mL/min/1.73 m2) Lab Interpretation (test code = 86779-8) [facility]normal [facility]N-Terminal Whj-Vgy1731-39-11 17:53:15* Test Item Value Reference Range Interpretation Comme [facility] NT-proBNP (test code = 80975-3) 1070 pg/mL <=125 H LYNDSAY (test code = LYNDSAY) Positive: Heart Failure Likely Lab Interpretation (test code = 64676-4) [facility]normal [facility] CenterPO[facility]SE ([facility]ATED)2023-11-28 16:41:29* Test Item Value Reference Range Interpretation Comme nts POCT GLU (test code = 9469575415) 129 mg/dL 70-110 H Lab Interpretation (test cod e = 40643-3) Abnormal [facility] CenterMagnesium2024-05-11 10:02:12* Test Item Value Reference Range Interpretation Comme nts MAGNESIUM (test code = 0230989353) 2.1 mg/dL 1.7-2.4 Lab Interpretation (test cod e = 55515-9) Normal [facility] CenterPhosphorus2024-05-11 10:02:12* Test Item Value Reference Range Interpretation Comme nts PHOSPHORUS (test code = 5290272061) 5.9 mg/dL 2.5-5.0 H Lab Interpretation (test cod e = 87733-7) [facility]normal [facility] CenterComp. Metabolic Panel (20408)2023-11-28 10:02:12* Test Item Value Reference Range Interpretation Comme nts NA (test code = 4521089290) 140 mmol/L 135-145 K (test code = 9034551762) 3.7 mmol/L 3.5-5.0 CL (test code = 6490940772) 98 mmol/L 98-108 CO2 TOTAL (test code = 9089676227) 33 mmol/L 23-31 H AGAP (test code = 8470044696) 9 2-16 BUN (test code = 1502264691) 24 mg/dL 7-23 H GLUCOSE (test code = 7255667472) 107 mg/dL 70-110 CREATININE (test code = 2160-0) 0.61 mg/dL 0.50-1.04 TOTAL BILI (test code = 9297793635) 0.6 mg/dL 0.1-1.1 CALCIUM (test code = 4380017009) 8.0 mg/dL 8.6-10.6 L T PROTEIN (test code = 6337119416) 6.0 g/dL 6.3-8.2 L ALBUMIN (test code = 3742398677) 3.4 g/dL 3.5-5.0 L ALK PHOS (test code = 7638981322) 173 U/L 34-122 H ALTv (test code = 1742-6) 61 U/L 5-35 H AST(SGOT) (test code = 7904847351) 29 U/L 13-40 eGFR (test code = 33984-9) 108.4 mL/min/1.73m2 CKD-EPI eGFR (2020). Assuming creatinine has been stable day-to-day for at least three months, the eGFR indicates Category G1 (>= 90 mL/min/1.73 m2) Lab Interpretation (test code = 91938-7) Abnormal [facility] with Yogl9849-66-79 09:37:29* Test Item Value Reference Range Interpretation [...] g/dL 31.6-35.1 L RDW-SD (test code = 35189-7) 65.6 fL 39.0-49.9 H RDW-CV (test code = 788-0) 22.0 % 12.0-15.5 H PLT (test code = 777-3) 292 166-358 MPV (test code = 86763-7) 9.1 fL 9.5-12.9 L NRBC/100 WBC (test code = 4859253352) 0.0 0.0-10.0 NRBC x10^3 (test code = 0450880018) See_Comment [Automated messa ge] The system which generated this result transmitted reference range: 10*3/?L. The reference range was not used to interpret this result as normal/abnormal. GRAN MAT (NEUT) % (test code = 770-8) 62.0 % IMM GRAN % (test code = 1036709838) 1.20 % LYMPH % (test code = 736-9) 28.5 % MONO % (test code = 5905-5) 7.3 % EOS % (test code = 713-8) 0.9 % BASO % (test code = 706-2) 0.1 % GRAN MAT x10^3(ANC) (test code = 6024289208) 4.98 10*3/uL 1.88-7.09 IMM GRAN x10^3 (test code = 5962732901) 0.10 10*3/uL 0.00-0.06 H LYMPH x10^3 (test code = 731-0) 2.29 10*3/uL 1.32-3.29 MONO x10^3 (test code = 742-7) 0.59 10*3/uL 0.33-0.92 EOS x10^3 (test code = 711-2) 0.07 10*3/uL 0.03-0.39 BASO x10^3 (test code = 704-7) 0.01-0.07 Lab Interpretation (test code = 25923-8) Abnormal [facility] GLUCOSE (AUTOMATED)2023-11-28 01:32:15* Test Item Value Reference Range Interpretation Comme nts POCT GLU (test code = 8111005105) 154 mg/dL 70-110 H Lab Interpretation (test cod e = 17127-2) Abnormal [facility] GLUCOSE (AUTOMATED)2023-11-27 21:45:44* Test Item Value Reference Range Interpretation Comme nts POCT GLU (test code = 6347611355) 183 mg/dL 70-110 H Lab Interpretation (test cod e = 47800-2) Abnormal [facility] GLUCOSE (AUTOMATED)2023-11-27 16:31:46* Test Item Value Reference Range Interpretation Comme nts POCT GLU (test code = 5991651666) 96 mg/dL 70-110 Lab Interpretation (test cod e = 52919-6) Normal [facility] GLUCOSE (AUTOMATED)2023-11-27 12:42:32* Test Item Value Reference Range Interpretation Comme nts POCT GLU (test code = 1341494983) 88 mg/dL 70-110 Lab Interpretation (test cod e = 02039-2) [id number] 06:44:07* Test Item Value Reference Range Interpretation Comme nts LACTIC ACID (test code = 3491037400) 1.48 mmol/L 0.50-2.20 Lab Interpretation (test cod e = 99925-4) Normal [facility] GLUCOSE (AUTOMATED)2023-11-27 02:37:00* Test Item Value Reference Range Interpretation Comme nts POCT GLU (test code = 6288444501) 167 mg/dL 70-110 H Lab Interpretation (test cod e = 19332-9) [id number] 00:22:04* Test Item Value Reference Range Interpretation Comme nts Valproic Acid, Free (test code = 5704348349) 23.8 ug/mL 4.0-15.0 H LYNDSAY (test code = LYNDSAY) Toxic Range: ? Greater than 15 ug/mL Test developed and characteristics determined by [facility] Laboratory Services. Lab Interpretation (test code = 98896-1) [facility]Folate[facility] 22:17:52* Test Item Value Reference Range Interpretation Comme nts FOLATE SER (test code = 0726409936) 10.9 ng/mL 3.0-20.0 Lab Interpretation (test cod e = 00297-4) Normal [facility] CenterVitamin B12, Pkpaw4102-80-88 22:17:52* Test Item Value Reference Range Interpretation Comme nts VIT B12 (test code = 5939797027) 485 pg/mL 240-930 LYNDSAY (test code = LYNDSAY) Biotin has been reported to cause a positive bias, interpret results relative to patient's use of biotin. Lab Interpretation (test code = 40974-2) [facility] CenterCT [facility] WO OSEZQRBL7577-65-41 22:17:11EXAM: CT HEAD WO CONTRAST HISTORY: 53 [...] likely represent sequelaeof microvascular ischemic disease. The morton-white matter differentiation ispreserved. Retention cyst is noted in the left maxillary sinus. Partial opacificationof the left sphenoid sinus. The mastoid air cells and visualized remainderparanasal air sinuses are clear. The calvarium and central skull base areunremarkable. [facility] CenterMagnesium2024-05-[facility] 22:11:53* Test Item Value Reference Range Interpretation Comme nts MAGNESIUM (test code = 7942864192) 2.1 mg/dL 1.7-2.4 Lab Interpretation (test cod e = 72166-7) Normal [facility] CenterComp. Metabolic Panel (44866)2023-11-26 22:11:53* Test Item Value Reference Range Interpretation Comme nts NA (test code = 5524887201) 132 mmol/L 135-145 L K (test code = 0912366223) 4.3 mmol/L 3.5-5.0 CL (test code = 1743684908) 94 mmol/L 98-108 L CO2 TOTAL (test code = 3664998213) 34 mmol/L 23-31 H AGAP (test code = 3595205643) 4 2-16 BUN (test code = 6441449204) 24 mg/dL 7-23 H GLUCOSE (test code = 3555116491) 178 mg/dL 70-110 H CREATININE (test code = 2160-0) 0.62 mg/dL 0.50-1.04 TOTAL BILI (test code = 1913127180) 0.6 mg/dL 0.1-1.1 CALCIUM (test code = 0867557177) 8.0 mg/dL 8.6-10.6 L T PROTEIN (test code = 8688095739) 6.1 g/dL 6.3-8.2 L ALBUMIN (test code = 1729823124) 3.5 g/dL 3.5-5.0 ALK PHOS (test code = 8052683081) 212 U/L 34-122 H ALTv (test code = 1742-6) 80 U/L 5-35 H AST(SGOT) (test code = 5967163040) 51 U/L 13-40 H eGFR (test code = 59075-7) 108.0 mL/min/1.73m2 CKD-EPI eGFR (2020). Assuming creatinine has been stable day-to-day for at least three months, the eGFR indicates Category G1 (>= 90 mL/min/1.73 m2) Lab Interpretation (test code = 14428-6) [facility])2023-11-26 21:19:06* Test Item Value Reference Range Interpretation Comme [facility] POCT GLU (test code = 8411515339) 224 mg/dL 70-110 H Lab Interpretation (test cod e = 73820-2) [facility]normal [facility] CenterKeppra (Levetiracetam)2023-11-26 19:45:17* Test Item Value Reference Range Interpretation Comme [facility] KEPPRA (test code = 9747800549) 12-46 L LYNDSAY (test code = LYNDSAY) Therapeutic range: 12-46 ?g/mL ? ?Toxic: Not well established.Test developed and characteristics determined by [facility] Laboratory Services. Lab Interpretation (test code = 63796-4) [facility]normal [facility] CenterLactic Acid Whole Yevmr6347-91-93 18:11:07* Test Item Value Reference Range Interpretation Comme [facility] LACTIC ACID (test code = 4294150007) 6.19 mmol/L 0.50-2.20 H Lab Interpretation (test cod e = 80579-9) [facility])2023-11-26 17:06:14* Test Item Value Reference Range Interpretation Comme [facility] POCT GLU (test code = 6816341864) 293 mg/dL 70-110 H Lab Interpretation (test cod e = 18920-4) [facility]normal [facility] CenterComp. Metabolic Panel (15060)2023-11-26 14:21:31* Test Item Value Reference Range Interpretation Comme nts NA (test code = 6607023187) 140 mmol/L 135-145 K (test code = 5649553831) 3.9 mmol/L 3.5-5.0 CL (test code = 1369922298) 93 mmol/L 98-108 L CO2 TOTAL (test code = 0066059757) 38 mmol/L 23-31 H AGAP (test code = 9165540089) 9 2-16 BUN (test code = 6734280305) 25 mg/dL 7-23 H GLUCOSE (test code = 0464215331) 83 mg/dL 70-110 CREATININE (test code = 2160-0) 0.71 mg/dL 0.50-1.04 TOTAL BILI (test code = 4335005908) 0.7 mg/dL 0.1-1.1 CALCIUM (test code = 9435776289) 8.7 mg/dL 8.6-10.6 T PROTEIN (test code = 9605183768) 6.6 g/dL 6.3-8.2 ALBUMIN (test code = 6895463223) 3.6 g/dL 3.5-5.0 ALK PHOS (test code = 8440975699) 220 U/L 34-122 H ALTv (test code = 1742-6) 95 U/L 5-35 H AST(SGOT) (test code = 7743823707) 47 U/L 13-40 H eGFR (test code = 47293-6) 103.1 mL/min/1.73m2 CKD-EPI eGFR (2020). Assuming creatinine has been stable day-to-day for at least three months, the eGFR indicates Category G1 (>= 90 mL/min/1.73 m2) Lab Interpretation (test code = 12384-2) [facility]normal [facility] CenterMagnesium2024-05-09 14:03:47* Test Item Value Reference Range Interpretation Comme nts MAGNESIUM (test code = 3308866793) 2.3 mg/dL 1.7-2.4 Lab Interpretation (test cod e = 55257-5) Normal [facility] with Uvoy8690-23-72 13:57:47* Test Item Value Reference Range Interpretation [...] g/dL 31.6-35.1 L RDW-SD (test code = 76918-6) 67.3 fL 39.0-49.9 H RDW-CV (test code = 788-0) 22.5 % 12.0-15.5 H PLT (test code = 777-3) 285 166-358 MPV (test code = 18442-7) 9.2 fL 9.5-12.9 L NRBC/100 WBC (test code = 7382010080) 0.3 0.0-10.0 NRBC x10^3 (test code = 7777493757) 0.03 See_Comment [Automated messa ge] The system which generated this result transmitted reference range: 10*3/?L. The reference range was not used to interpret this result as normal/abnormal. GRAN MAT (NEUT) % (test code = 770-8) 70.5 % IMM GRAN % (test code = 2241883170) 0.80 % LYMPH % (test code = 736-9) 21.7 % MONO % (test code = 5905-5) 6.4 % EOS % (test code = 713-8) 0.5 % BASO % (test code = 706-2) 0.1 % GRAN MAT x10^3(ANC) (test code = 4561374323) 7.54 10*3/uL 1.88-7.09 H IMM GRAN x10^3 (test code = 6407327352) 0.09 10*3/uL 0.00-0.06 H LYMPH x10^3 (test code = 731-0) 2.32 10*3/uL 1.32-3.29 MONO x10^3 (test code = 742-7) 0.69 10*3/uL 0.33-0.92 EOS x10^3 (test code = 711-2) 0.05 10*3/uL 0.03-0.39 BASO x10^3 (test code = 704-7) 0.01-0.07 Lab Interpretation (test code = 30565-6) Abnormal [facility] CenterLamaic Acid Whole Jpjde8571-22-63 10:06:23* Test Item Value Reference Range Interpretation Comme [facility] LACTIC ACID (test code = 1010998881) 2.41 mmol/L 0.50-2.20 H Lab Interpretation (test cod e = 19997-4) [facility]normal [facility] CenterPOTN GLUCOSE (AUTOMATED)2023-11-26 02:14:06* Test Item Value Reference Range Interpretation Comme [facility] POCT GLU (test code = 6017705174) 288 mg/dL 70-110 H Lab Interpretation (test cod e = 00006-0) [facility]normal [facility] CenterLactic Acid Whole Lsizp3804-14-06 00:56:52* Test Item Value Reference Range Interpretation Comme [facility] LACTIC ACID (test code = 9568951237) 2.93 mmol/L 0.50-2.20 H Lab Interpretation (test cod e = 23429-4) [facility]normal [facility] CenterElectroencephalogram (EEG) - Duration of test: Continuous EEG Monitoring (LTM); Release to patient:Flokdrniy1329-84-75 00:00:00 * Test Item Value Reference Range Interpretation Comme nts LYNDSAY (test code = LYNDSAY) LONG-TERM EEG MONITORING #1: 11/26/2023, 15:40 - 16: 31 Name: Heather TurnerN: [id number]'s Age:53 year oldSex: female History from chart review: This is a 53 year old female with a PMH significant for HFrEF (~35% 05/2023), HTN, Smoker, COPD (on intermittent home O2), chronic low back pain, seizure disorder, C3-C4 ACDF and L3-L4 laminectomies (06/01/23) c/b chronic low back pain 2/2 lumbar spinal stenosis, and depression presenting from [facility] due to SOB. [...] segment. Laura Ramirez MD, PhD, FAESData: 11/26/2023 GANG BORE OPERATOR EEG MONITORING SEGMENT #2: 11/26/23, 16:31:09-19:29:41 In [...] Interpreted by Dewey Neal MD on 11/26/23 -----PENITENTIARY EEG MONITORING SEGMENT #3: 11/26/23, 19:29:41 to [...] on 11/27/23 Lab Interpretation (test code = 76942-0) [facility]normal [facility] CenterComp. Metabolic Panel (09682)2023-11-25 21:24:39* Test Item Value Reference Range Interpretation Comme nts NA (test code = 5231329426) 134 mmol/L 135-145 L K (test code = 6922568659) 4.3 mmol/L 3.5-5.0 CL (test code = 7837231024) 89 mmol/L 98-108 L CO2 TOTAL (test code = 9994873803) 37 mmol/L 23-31 H AGAP (test code = 3540774289) 8 2-16 BUN (test code = 8270160862) 24 mg/dL 7-23 H GLUCOSE (test code = 3852418462) 177 mg/dL 70-110 H CREATININE (test code = 2160-0) 0.69 mg/dL 0.50-1.04 TOTAL BILI (test code = 9098510333) 0.9 mg/dL 0.1-1.1 CALCIUM (test code = 6608399816) 8.6 mg/dL 8.6-10.6 T PROTEIN (test code = 1509141508) 7.3 g/dL 6.3-8.2 ALBUMIN (test code = 2479724408) 4.1 g/dL 3.5-5.0 ALK PHOS (test code = 7399793617) 263 U/L 34-122 H ALTv (test code = 1742-6) 116 U/L 5-35 H AST(SGOT) (test code = 1968853209) 36 U/L 13-40 eGFR (test code = 32027-8) 105.2 mL/min/1.73m2 CKD-EPI eGFR (2020). Assuming creatinine has been stable day-to-day for at least three months, the eGFR indicates Category G1 (>= 90 mL/min/1.73 m2) Lab Interpretation (test code = 66137-4) [facility]normal [facility] CenterMagnesium2024-05-08 21:24:39* Test Item Value Reference Range Interpretation Comme nts MAGNESIUM (test code = 5933859962) 2.1 mg/dL 1.7-2.4 Lab Interpretation (test cod e = 08823-9) [facility] Nmxzo0470-08-43 21:10:26* Test Item Value Reference Range Interpretation Comme nts LACTIC ACID (test code = 3721667435) 4.07 mmol/L 0.50-2.20 H Lab Interpretation (test cod e = 14522-7) Abnormal [facility] GLUCOSE (AUTOMATED)2023-11-25 21:01:04* Test Item Value Reference Range Interpretation Comme nts POCT GLU (test code = 8357258691) 173 mg/dL 70-110 H Lab Interpretation (test cod e = 20450-6) Abnormal [facility] GLUCOSE (AUTOMATED)2023-11-25 16:59:00* Test Item Value Reference Range Interpretation Comme nts POCT GLU (test code = 4042395853) 220 mg/dL 70-110 H Lab Interpretation (test cod e = 17371-9) Abnormal [facility] GLUCOSE (AUTOMATED)2023-11-25 13:06:20* Test Item Value Reference Range Interpretation Comme nts POCT GLU (test code = 5763041833) 92 mg/dL 70-110 Lab Interpretation (test cod e = 98835-5) [facility] Center[facility] Whole Qfnsb4960-38-68 09:28:51* Test Item Value Reference Range Interpretation Comme nts LACTIC ACID (test code = 9983396938) 1.66 mmol/L 0.50-2.20 Lab Interpretation (test cod e = 32507-6) [facility] Center[facility] Whole Uabom6762-40-14 04:58:57* Test Item Value Reference Range Interpretation Comme nts LACTIC ACID (test code = 3027194810) 2.00 mmol/L 0.50-2.20 Lab Interpretation (test cod e = 77932-9) Normal [facility] GLUCOSE (AUTOMATED)2023-11-25 03:05:13* Test Item Value Reference Range Interpretation Comme nts POCT GLU (test code = 0743551971) 189 mg/dL 70-110 H Lab Interpretation (test cod e = 18361-0) Abnormal [facility] ABDOMEN PELVIS W AEIFLIHD6069-80-33 00:18:09CT ABDOMEN PELVIS W CONTRAST 11/24/2023 5:07 [...] pelvic and upper thigh skinthickening and subcutaneous edema.[facility] CenterLactic Acid Whole Hovfu1754-88-76 21:31:49* Test Item Value Reference Range Interpretation Comme [facility] LACTIC ACID (test code = 1082465537) 4.54 mmol/L 0.50-2.20 H Lab Interpretation (test cod e = 12515-9) Abnormal [facility] GLUCOSE (AUTOMATED)2023-11-24 21:31:39* Test Item Value Reference Range Interpretation Comme [facility] POCT GLU (test code = 7230781388) 198 mg/dL 70-110 H Lab Interpretation (test cod e = 37484-4) Abnormal [facility] GLUCOSE (AUTOMATED)2023-11-24 17:53:57* Test Item Value Reference Range Interpretation Comme nts POCT GLU (test code = 0681376939) 226 mg/dL 70-110 H Lab Interpretation (test cod e = 35060-9) Abnormal [facility] GLUCOSE (AUTOMATED)2023-11-24 17:53:57* Test Item Value Reference Range Interpretation Comme nts POCT GLU (test code = 5507349172) 226 mg/dL 70-110 H Lab Interpretation (test cod e = 06324-2) Abnormal [facility] GLUCOSE (AUTOMATED)2023-11-24 17:53:57* Test Item Value Reference Range Interpretation Comme nts POCT GLU (test code = 6244399789) 226 mg/dL 70-110 H Lab Interpretation (test cod e = 23404-3) [facility]normal [facility] CenterLactic Acid Whole Nrkei7060-20-92 15:48:27* Test Item Value Reference Range Interpretation Comme nts LACTIC ACID (test code = 0936574298) 4.43 mmol/L 0.50-2.20 H Lab Interpretation (test cod e = 56963-3) [facility]normal [facility] CenterLactic Acid Whole Jiduy9023-48-22 15:48:27* Test Item Value Reference Range Interpretation Comme nts LACTIC ACID (test code = 3513976303) 4.43 mmol/L 0.50-2.20 H Lab Interpretation (test cod e = 50427-4) [facility]normal [facility] CenterLactic Acid Whole Cvixj5638-83-31 15:48:27* Test Item Value Reference Range Interpretation Comme nts LACTIC ACID (test code = 7610563492) 4.43 mmol/L 0.50-2.20 H Lab Interpretation (test cod e = 62496-4) Abnormal [facility] CenterCardiovascular Ymbajhhysevgzhz4179-62-15 14:28:29? ?RHC/Coronary Angiography Date of Service: 11/23/2023 ?3:18 PM Indication/Diagnosis: heart failure Consent source: self Consent type: indications/complications discussed with patient/legal guardian; written consent obtained Time out completed: yes Aseptic technique: Chlorprep Local Anesthesia: 1% lidocaine without epinephrine Sedation: fentanyl 50 mcg, Versed 2 mg Access site: right radial artery, RI Norcatur 4.0 5fr8 Fr IJ sheathSwmarsha Rosalba ? Closure Method: TR Band, manual [...] was present for the entire procedure. [facility]DE[facility] Post-Procedure Sedation AddendumImmediately prior to start of [...] sided failure. Nataliia Ivy professor.Division of cardiovascular medicineMem[facility]2023-11-24 12:34:31* Test Item Value Reference Range Interpretation Comme nts POCT GLU (test code = 0101446573) 114 mg/dL 70-110 H Lab Interpretation (test cod e = 08452-4) Abnormal [facility] GLUCOSE (AUTOMATED)2023-11-24 12:34:31* Test Item Value Reference Range Interpretation Comme nts POCT GLU (test code = 2921115808) 114 mg/dL 70-110 H Lab Interpretation (test cod e = 20708-0) Abnormal [facility] GLUCOSE (AUTOMATED)2023-11-24 12:34:31* Test Item Value Reference Range Interpretation Comme nts POCT GLU (test code = 9003995165) 114 mg/dL 70-110 H Lab Interpretation (test cod e = 91337-6) [facility]normal [facility] CenterMagnesium2024-05-07 11:10:57* Test Item Value Reference Range Interpretation Comme nts MAGNESIUM (test code = 8834627798) 2.2 mg/dL 1.7-2.4 Lab Interpretation (test cod e = 03855-5) Normal [facility]. Metabolic Panel (26305)2023-11-24 11:10:57* Test Item Value Reference Range Interpretation Comme nts NA (test code = 6398570402) 141 mmol/L 135-145 K (test code = 5636584790) 4.1 mmol/L 3.5-5.0 CL (test code = 5179484724) 97 mmol/L 98-108 L CO2 TOTAL (test code = 4799657207) 36 mmol/L 23-31 H AGAP (test code = 0228019001) 8 2-16 BUN (test code = 8455672089) 20 mg/dL 7-23 GLUCOSE (test code = 0231153278) 125 mg/dL 70-110 H CREATININE (test code = 2160-0) 0.66 mg/dL 0.50-1.04 TOTAL BILI (test code = 3230736738) 0.7 mg/dL 0.1-1.1 CALCIUM (test code = 4745446741) 8.4 mg/dL 8.6-10.6 L T PROTEIN (test code = 3172083518) 6.5 g/dL 6.3-8.2 ALBUMIN (test code = 8781463754) 3.7 g/dL 3.5-5.0 ALK PHOS (test code = 6758347744) 266 U/L 34-122 H ALTv (test code = 1742-6) 149 U/L 5-35 H AST(SGOT) (test code = 8973659312) 35 U/L 13-40 eGFR (test code = 72701-5) 106.4 mL/min/1.73m2 CKD-EPI eGFR (2020). Assuming creatinine has been stable day-to-day for at least three months, the eGFR indicates Category G1 (>= 90 mL/min/1.73 m2) Lab Interpretation (test code = 92947-5) [facility]normal [facility] CenterMagnesium2024-05-07 11:10:57* Test Item Value Reference Range Interpretation Comme nts MAGNESIUM (test code = 9829287120) 2.2 mg/dL 1.7-2.4 Lab Interpretation (test cod e = 27047-8) Normal [facility] Center[facility]. Met[facility] Panel (91758)2023-11-24 11:10:57* Test Item Value Reference Range Interpretation Comme nts NA (test code = 5695182340) 141 mmol/L 135-145 K (test code = 6726682044) 4.1 mmol/L 3.5-5.0 CL (test code = 4509705727) 97 mmol/L 98-108 L CO2 TOTAL (test code = 2046776675) 36 mmol/L 23-31 H AGAP (test code = 8620754339) 8 2-16 BUN (test code = 8359072319) 20 mg/dL 7-23 GLUCOSE (test code = 3335934012) 125 mg/dL 70-110 H CREATININE (test code = 2160-0) 0.66 mg/dL 0.50-1.04 TOTAL BILI (test code = 4659458073) 0.7 mg/dL 0.1-1.1 CALCIUM (test code = 4264052126) 8.4 mg/dL 8.6-10.6 L T PROTEIN (test code = 4504541947) 6.5 g/dL 6.3-8.2 ALBUMIN (test code = 5920497254) 3.7 g/dL 3.5-5.0 ALK PHOS (test code = 8835420191) 266 U/L 34-122 H ALTv (test code = 1742-6) 149 U/L 5-35 H AST(SGOT) (test code = 2711109665) 35 U/L 13-40 eGFR (test code = 82798-2) 106.4 mL/min/1.73m2 CKD-EPI eGFR (2020). Assuming creatinine has been stable day-to-day for at least three months, the eGFR indicates Category G1 (>= 90 mL/min/1.73 m2) Lab Interpretation (test code = 68388-5) [facility]normal [facility] CenterMagnesium2024-05-07 11:10:57* Test Item Value Reference Range Interpretation Comme nts MAGNESIUM (test code = 9284480961) 2.2 mg/dL 1.7-2.4 Lab Interpretation (test cod e = 78947-4) Normal [facility] (16024)2023-11-24 11:10:57* Test Item Value Reference Range Interpretation Comme nts NA (test code = 9662804249) 141 mmol/L 135-145 K (test code = 9458522934) 4.1 mmol/L 3.5-5.0 CL (test code = 7605752472) 97 mmol/L 98-108 L CO2 TOTAL (test code = 7311031051) 36 mmol/L 23-31 H AGAP (test code = 7380452820) 8 2-16 BUN (test code = 2176211080) 20 mg/dL 7-23 GLUCOSE (test code = 1472089243) 125 mg/dL 70-110 H CREATININE (test code = 2160-0) 0.66 mg/dL 0.50-1.04 TOTAL BILI (test code = 9392207541) 0.7 mg/dL 0.1-1.1 CALCIUM (test code = 4062973389) 8.4 mg/dL 8.6-10.6 L T PROTEIN (test code = 7423238950) 6.5 g/dL 6.3-8.2 ALBUMIN (test code = 1753728609) 3.7 g/dL 3.5-5.0 ALK PHOS (test code = 3233362540) 266 U/L 34-122 H ALTv (test code = 1742-6) 149 U/L 5-35 H AST(SGOT) (test code = 5716846873) 35 U/L 13-40 eGFR (test code = 53064-0) 106.4 mL/min/1.73m2 CKD-EPI eGFR (2020). Assuming creatinine has been stable day-to-day for at least three months, the eGFR indicates Category G1 (>= 90 mL/min/1.73 m2) Lab Interpretation (test code = 09088-3) [facility] Hour Kahgsh7074-63-51 11:07:59* Test Item Value Reference Range Interpretation Comme nts LACTIC ACID (test code = 3136807551) 3.41 mmol/L 0.50-2.20 H Lab Interpretation (test cod e = 63848-2) [facility] Qhfjiq1978-60-12 11:07:59* Test Item Value Reference Range Interpretation Comme nts LACTIC ACID (test code = 8760829391) 3.41 mmol/L 0.50-2.20 H Lab Interpretation (test cod e = 88940-0) [facility]normal [facility] Hour Mfngaw5047-15-40 11:07:59* Test Item Value Reference Range Interpretation Comme nts LACTIC ACID (test code = 6936967544) 3.41 mmol/L 0.50-2.20 H Lab Interpretation (test cod e = 52309-1) Abnormal [facility] with Qjmz6073-07-77 10:28:34* Test Item Value Reference Range Interpretation [...] g/dL 31.6-35.1 L RDW-SD (test code = 29378-0) 67.5 fL 39.0-49.9 H RDW-CV (test code = 788-0) 22.5 % 12.0-15.5 H PLT (test code = 777-3) 245 166-358 MPV (test code = 07061-0) 9.5 fL 9.5-12.9 NRBC/100 WBC (test code = 1206328897) 1.2 0.0-10.0 NRBC x10^3 (test code = 0939255720) 0.11 See_Comment [Automated messa ge] The system which generated this result transmitted reference range: 10*3/?L. The reference range was not used to interpret this result as normal/abnormal. GRAN MAT (NEUT) % (test code = 770-8) 84.8 % IMM GRAN % (test code = 4163124283) 0.80 % LYMPH % (test code = 736-9) 7.3 % MONO % (test code = 5905-5) 7.0 % EOS % (test code = 713-8) 0.0 % BASO % (test code = 706-2) 0.1 % GRAN MAT x10^3(ANC) (test code = 2694870201) 8.03 10*3/uL 1.88-7.09 H IMM GRAN x10^3 (test code = 5225370775) 0.08 10*3/uL 0.00-0.06 H LYMPH x10^3 (test code = 731-0) 0.69 10*3/uL 1.32-3.29 L MONO x10^3 (test code = 742-7) 0.66 10*3/uL 0.33-0.92 EOS x10^3 (test code = 711-2) 0.03-0.39 L BASO x10^3 (test code = 704-7) 0.01-0.07 Lab Interpretation (test code = 54751-3) Abnormal [facility] with Ubsi0964-74-51 10:28:34* Test Item Value Reference Range Interpretation [...] g/dL 31.6-35.1 L RDW-SD (test code = 97138-4) 67.5 fL 39.0-49.9 H RDW-CV (test code = 788-0) 22.5 % 12.0-15.5 H PLT (test code = 777-3) 245 166-358 MPV (test code = 36344-2) 9.5 fL 9.5-12.9 NRBC/100 WBC (test code = 8416696582) 1.2 0.0-10.0 NRBC x10^3 (test code = 0613528859) 0.11 See_Comment [Automated messa ge] The system which generated this result transmitted reference range: 10*3/?L. The reference range was not used to interpret this result as normal/abnormal. GRAN MAT (NEUT) % (test code = 770-8) 84.8 % IMM GRAN % (test code = 6135466621) 0.80 % LYMPH % (test code = 736-9) 7.3 % MONO % (test code = 5905-5) 7.0 % EOS % (test code = 713-8) 0.0 % BASO % (test code = 706-2) 0.1 % GRAN MAT x10^3(ANC) (test code = 3427219507) 8.03 10*3/uL 1.88-7.09 H IMM GRAN x10^3 (test code = 6040310692) 0.08 10*3/uL 0.00-0.06 H LYMPH x10^3 (test code = 731-0) 0.69 10*3/uL 1.32-3.29 L MONO x10^3 (test code = 742-7) 0.66 10*3/uL 0.33-0.92 EOS x10^3 (test code = 711-2) 0.03-0.39 L BASO x10^3 (test code = 704-7) 0.01-0.07 Lab Interpretation (test code = 74826-8) Abnormal [facility] with Ziuy0104-03-38 10:28:34* Test Item Value Reference Range Interpretation [...] g/dL 31.6-35.1 L RDW-SD (test code = 16291-2) 67.5 fL 39.0-49.9 H RDW-CV (test code = 788-0) 22.5 % 12.0-15.5 H PLT (test code = 777-3) 245 166-358 MPV (test code = 52488-9) 9.5 fL 9.5-12.9 NRBC/100 WBC (test code = 0934491233) 1.2 0.0-10.0 NRBC x10^3 (test code = 7765200193) 0.11 See_Comment [Automated messa ge] The system which generated this result transmitted reference range: 10*3/?L. The reference range was not used to interpret this result as normal/abnormal. GRAN MAT (NEUT) % (test code = 770-8) 84.8 % IMM GRAN % (test code = 3505291086) 0.80 % LYMPH % (test code = 736-9) 7.3 % MONO % (test code = 5905-5) 7.0 % EOS % (test code = 713-8) 0.0 % BASO % (test code = 706-2) 0.1 % GRAN MAT x10^3(ANC) (test code = 4903701154) 8.03 10*3/uL 1.88-7.09 H IMM GRAN x10^3 (test code = 7424390851) 0.08 10*3/uL 0.00-0.06 H LYMPH x10^3 (test code = 731-0) 0.69 10*3/uL 1.32-3.29 L MONO x10^3 (test code = 742-7) 0.66 10*3/uL 0.33-0.92 EOS x10^3 (test code = 711-2) 0.03-0.39 L BASO x10^3 (test code = 704-7) 0.01-0.07 Lab Interpretation (test code = 90077-8) Abnormal [facility] (for use with Heparin Infusion)2023-11-24 06:40:52* Test Item Value Reference Range Interpretation Comme nts APTT Patient (test code = 3173-2) Lab Interpretation (test cod e = 61619-7) Normal [facility] (for use with Heparin Infusion)2023-11-24 06:40:52* Test Item Value Reference Range Interpretation Comme nts APTT Patient (test code = 3173-2) Lab Interpretation (test cod e = 44283-6) Normal [facility] (for use with Heparin Infusion)2023-11-24 06:40:52* Test Item Value Reference Range Interpretation Comme nts APTT Patient (test code = 3173-2) 26 26-36 Lab Interpretation (test cod e = 84086-4) Normal [facility] GLUCOSE (AUTOMATED)2023-11-24 03:18:58* Test Item Value Reference Range Interpretation Comme nts POCT GLU (test code = 5277615707) 263 mg/dL 70-110 H Lab Interpretation (test cod e = 95194-8) Abnormal [facility] GLUCOSE (AUTOMATED)2023-11-24 03:18:58* Test Item Value Reference Range Interpretation Comme nts POCT GLU (test code = 8074238058) 263 mg/dL 70-110 H Lab Interpretation (test cod e = 11684-3) Abnormal [facility] GLUCOSE (AUTOMATED)2023-11-24 03:18:58* Test Item Value Reference Range Interpretation Comme nts POCT GLU (test code = 4134530483) 263 mg/dL 70-110 H Lab Interpretation (test cod e = 40287-2) Abnormal [facility] GLUCOSE (AUTOMATED)2023-11-23 21:29:57* Test Item Value Reference Range Interpretation Comme nts POCT GLU (test code = 6361488226) 137 mg/dL 70-110 H Lab Interpretation (test cod e = 55762-3) Abnormal [facility] GLUCOSE (AUTOMATED)2023-11-23 21:29:57* Test Item Value Reference Range Interpretation Comme nts POCT GLU (test code = 7956005732) 137 mg/dL 70-110 H Lab Interpretation (test cod e = 65758-8) Abnormal [facility] GLUCOSE (AUTOMATED)2023-11-23 21:29:57* Test Item Value Reference Range Interpretation Comme nts POCT GLU (test code = 4028212458) 137 mg/dL 70-110 H Lab Interpretation (test cod e = 90999-6) [facility] (ALB,T.PRO,BILI T,BU/BC,ALT,AST,ALK PHOS)2023-11-23 17:45:02* Test Item Value Reference Range Interpretation Comme nts TOTAL BILI (test code = 0614285739) 0.7 mg/dL 0.1-1.1 BILI UNCON (test code = 9111899820) 0.1 mg/dL 0.1-1.1 BILI CONJ (test code = 8637451317) 0.0 mg/dL 0.0-0.3 T PROTEIN (test code = 2864495959) 6.2 g/dL 6.3-8.2 L ALBUMIN (test code = 5952152125) 3.5 g/dL 3.5-5.0 ALK PHOS (test code = 8723907201) 274 U/L 34-122 H ALTv (test code = 1742-6) 176 U/L 5-35 H AST(SGOT) (test code = 8295728132) 40 U/L 13-40 Lab Interpretation (test cod e = 42633-3) [facility]18[facility] (ALB,T.PRO,BILI T,BU/BC,ALT,AST,ALK PHOS)2023-11-23 17:45:02* Test Item Value Reference Range Interpretation Comme nts TOTAL BILI (test code = 8656808222) 0.7 mg/dL 0.1-1.1 BILI UNCON (test code = 7205478392) 0.1 mg/dL 0.1-1.1 BILI CONJ (test code = 8168078396) 0.0 mg/dL 0.0-0.3 T PROTEIN (test code = 1651801116) 6.2 g/dL 6.3-8.2 L ALBUMIN (test code = 0733499093) 3.5 g/dL 3.5-5.0 ALK PHOS (test code = 5081391072) 274 U/L 34-122 H ALTv (test code = 1742-6) 176 U/L 5-35 H AST(SGOT) (test code = 3022615587) 40 U/L 13-40 Lab Interpretation (test cod e = 05089-9) [facility] (ALB,T.PRO,BILI T,BU/BC,ALT,AST,ALK PHOS)2023-11-23 17:45:02* Test Item Value Reference Range Interpretation Comme nts TOTAL BILI (test code = 8334422046) 0.7 mg/dL 0.1-1.1 BILI UNCON (test code = 9160797866) 0.1 mg/dL 0.1-1.1 BILI CONJ (test code = 1262122337) 0.0 mg/dL 0.0-0.3 T PROTEIN (test code = 5486155535) 6.2 g/dL 6.3-8.2 L ALBUMIN (test code = 3443447894) 3.5 g/dL 3.5-5.0 ALK PHOS (test code = 8754420090) 274 U/L 34-122 H ALTv (test code = 1742-6) 176 U/L 5-35 H AST(SGOT) (test code = 6582979750) 40 U/L 13-40 Lab Interpretation (test cod e = 59645-1) Abnormal [facility] GLUCOSE (AUTOMATED)2023-11-23 17:19:25* Test Item Value Reference Range Interpretation Comme nts POCT GLU (test code = 7072077382) 137 mg/dL 70-110 H Lab Interpretation (test cod e = 66154-5) Abnormal [facility] GLUCOSE (AUTOMATED)2023-11-23 17:19:25* Test Item Value Reference Range Interpretation Comme nts POCT GLU (test code = 2599426538) 137 mg/dL 70-110 H Lab Interpretation (test cod e = 42413-9) Abnormal [facility] GLUCOSE (AUTOMATED)2023-11-23 17:19:25* Test Item Value Reference Range Interpretation Comme nts POCT GLU (test code = 8135695765) 137 mg/dL 70-110 H Lab Interpretation (test cod e = 75397-8) Abnormal [facility] GLUCOSE (AUTOMATED)2023-11-23 16:51:25* Test Item Value Reference Range Interpretation Comme nts POCT GLU (test code = 0650255477) 145 mg/dL 70-110 H Lab Interpretation (test cod e = 10877-1) Abnormal [facility] GLUCOSE (AUTOMATED)2023-11-23 16:51:25* Test Item Value Reference Range Interpretation Comme nts POCT GLU (test code = 8492641152) 145 mg/dL 70-110 H Lab Interpretation (test cod e = 42223-4) Abnormal [facility] GLUCOSE (AUTOMATED)2023-11-23 16:51:25* Test Item Value Reference Range Interpretation Comme nts POCT GLU (test code = 0923500156) 145 mg/dL 70-110 H Lab Interpretation (test cod e = 33820-5) [facility]-23 15:36:08* Test Item Value Reference Range Interpretation Comme nts APTT Patient (test code = 3173-2) 44 26-36 H Lab Interpretation (test cod e = 58438-6) [facility]2023-11-23 15:36:08* Test Item Value Reference Range Interpretation Comme nts APTT Patient (test code = 3173-2) 44 26-36 H Lab Interpretation (test cod e = 52923-3) [facility]23-11-23 15:36:08* Test Item Value Reference Range Interpretation Comme nts APTT Patient (test code = 3173-2) 44 26-36 H Lab Interpretation (test cod e = 52226-3) [facility] Ypxfv1393-93-35 15:21:35* Test Item Value Reference Range Interpretation Comme nts LACTIC ACID (test code = 2685021337) 4.80 mmol/L 0.50-2.20 H Lab Interpretation (test cod e = 46224-0) [facility] Cskub3460-05-56 15:21:35* Test Item Value Reference Range Interpretation Comme nts LACTIC ACID (test code = 0298695712) 4.80 mmol/L 0.50-2.20 H Lab Interpretation (test cod e = 25875-7) [facility] Dvcsy5153-79-28 15:21:35* Test Item Value Reference Range Interpretation Comme nts LACTIC ACID (test code = 0486012157) 4.80 mmol/L 0.50-2.20 H Lab Interpretation (test cod e = 62393-3) [facility] 12:49:15* Test Item Value Reference Range Interpretation Comme nts POCT GLU (test code = 2509582569) 162 mg/dL 70-110 H Lab Interpretation (test cod e = 46316-1) Abnormal [facility] GLUCOSE (AUTOMATED)2023-11-23 12:49:15* Test Item Value Reference Range Interpretation Comme nts POCT GLU (test code = 4456702886) 162 mg/dL 70-110 H Lab Interpretation (test cod e = 98064-2) Abnormal [facility] GLUCOSE (AUTOMATED)2023-11-23 12:49:15* Test Item Value Reference Range Interpretation Comme nts POCT GLU (test code = 6183967393) 162 mg/dL 70-110 H Lab Interpretation (test cod e = 72970-3) [facility]* Test Item Value Reference Range Interpretation Comme nts MAGNESIUM (test code = 2371537097) 1.9 mg/dL 1.7-2.4 Lab Interpretation (test cod e = 91499-4) [facility] (NA, K, CL, CO2, GLUCOSE, BUN, CREATININE, CA)2023-11-23 08:44:42* Test Item Value Reference Range Interpretation Comme nts NA (test code = 7209691433) 136 mmol/L 135-145 K (test code = 2170233245) 3.7 mmol/L 3.5-5.0 CL (test code = 6111328671) 99 mmol/L 98-108 CO2 TOTAL (test code = 7980221141) 31 mmol/L 23-31 AGAP (test code = 6624624375) 6 2-16 BUN (test code = 8371896602) 20 mg/dL 7-23 GLUCOSE (test code = 8796250790) 184 mg/dL 70-110 H CREATININE (test code = 2160-0) 0.66 mg/dL 0.50-1.04 CALCIUM (test code = 4055149378) 7.9 mg/dL 8.6-10.6 L eGFR (test code = 99594-4) 106.4 mL/min/1.73m2 CKD-EPI eGFR (2020). Assuming creatinine has been stable day-to-day for at least three months, the eGFR indicates Category G1 (>= 90 mL/min/1.73 m2) Lab Interpretation (test code = 39766-9) [facility]* Test Item Value Reference Range Interpretation Comme nts MAGNESIUM (test code = 9426606783) 1.9 mg/dL 1.7-2.4 Lab Interpretation (test cod e = 43410-3) [facility] (NA, K, CL, CO2, GLUCOSE, BUN, CREATININE, CA)2023-11-23 08:44:42* Test Item Value Reference Range Interpretation Comme nts NA (test code = 3276462034) 136 mmol/L 135-145 K (test code = 4415024314) 3.7 mmol/L 3.5-5.0 CL (test code = 3300851982) 99 mmol/L 98-108 CO2 TOTAL (test code = 2115373829) 31 mmol/L 23-31 AGAP (test code = 0900667572) 6 2-16 BUN (test code = 3339026902) 20 mg/dL 7-23 GLUCOSE (test code = 5570862369) 184 mg/dL 70-110 H CREATININE (test code = 2160-0) 0.66 mg/dL 0.50-1.04 CALCIUM (test code = 4718832555) 7.9 mg/dL 8.6-10.6 L eGFR (test code = 25061-2) 106.4 mL/min/1.73m2 CKD-EPI eGFR (2020). Assuming creatinine has been stable day-to-day for at least three months, the eGFR indicates Category G1 (>= 90 mL/min/1.73 m2) Lab Interpretation (test code = 26493-2) Abnormal [facility]2024-05-06 08:44:42* Test Item Value Reference Range Interpretation Comme nts MAGNESIUM (test code = 4029760542) 1.9 mg/dL 1.7-2.4 Lab Interpretation (test cod e = 99165-7) [facility] (NA, K, CL, CO2, GLUCOSE, BUN, CREATININE, CA)2023-11-23 08:44:42* Test Item Value Reference Range Interpretation Comme nts NA (test code = 3863711589) 136 mmol/L 135-145 K (test code = 7603018674) 3.7 mmol/L 3.5-5.0 CL (test code = 9365666116) 99 mmol/L 98-108 CO2 TOTAL (test code = 7973526082) 31 mmol/L 23-31 AGAP (test code = 1662667380) 6 2-16 BUN (test code = 2453223312) 20 mg/dL 7-23 GLUCOSE (test code = 6084528874) 184 mg/dL 70-110 H CREATININE (test code = 2160-0) 0.66 mg/dL 0.50-1.04 CALCIUM (test code = 0886411151) 7.9 mg/dL 8.6-10.6 L eGFR (test code = 92373-7) 106.4 mL/min/1.73m2 CKD-EPI eGFR (2020). Assuming creatinine has been stable day-to-day for at least three months, the eGFR indicates Category G1 (>= 90 mL/min/1.73 m2) Lab Interpretation (test code = 39547-2) Abnormal [facility] (for use with Heparin Infusion)2023-11-23 08:29:39* Test Item Value Reference Range Interpretation Comme [facility] APTT Patient (test code = 3173-2) 49 26-36 H Lab Interpretation (test cod e = 70690-8) Abnormal [facility] (for use with Heparin Infusion)2023-11-23 08:29:39* Test Item Value Reference Range Interpretation Comme [facility] APTT Patient (test code = 3173-2) 49 26-36 H Lab Interpretation (test cod e = 43954-4) Abnormal [facility] (for use with Heparin Infusion)2023-11-23 08:29:39* Test Item Value Reference Range Interpretation Comme [facility] APTT Patient (test code = 3173-2) 49 26-36 H Lab Interpretation (test cod e = 86631-2) Abnormal [facility] with Bzcm5978-26-15 08:24:03* Test Item Value Reference Range Interpretation Comme [facility] WBC (test code = 6690-2) 7.18 4.30-11.10 RBC (test code = 789-8) 3.21 3.93-5.25 L HGB (test code = 718-7) 8.0 g/dL 11.6-15.0 L HCT (test code = 4544-3) 26.7 % 35.7-45.2 L MCV (test code = 787-2) 83.2 fL 80.6-95.5 MCH (test code = 785-6) 24.9 pg 25.9-32.8 L MCHC (test code = 786-4) 30.0 g/dL 31.6-35.1 L RDW-SD (test code = 28186-2) 66.0 fL 39.0-49.9 H RDW-CV (test code = 788-0) 22.5 % 12.0-15.5 H PLT (test code = 777-3) 204 166-358 MPV (test code = 72079-5) 9.8 fL 9.5-12.9 NRBC/100 WBC (test code = 7529526213) 2.4 0.0-10.0 NRBC x10^3 (test code = 6703677845) 0.17 See_Comment [Automated messa ge] The system which generated this result transmitted reference range: 10*3/?L. The reference range was not used to interpret this result as normal/abnormal. GRAN MAT (NEUT) % (test code = 770-8) 80.3 % IMM GRAN % (test code = 8532851315) 1.70 % LYMPH % (test code = 736-9) 9.5 % MONO % (test code = 5905-5) 8.5 % EOS % (test code = 713-8) 0.0 % BASO % (test code = 706-2) 0.0 % GRAN MAT x10^3(ANC) (test code = 1376948261) 5.77 10*3/uL 1.88-7.09 IMM GRAN x10^3 (test code = 7915922165) 0.12 10*3/uL 0.00-0.06 H LYMPH x10^3 (test code = 731-0) 0.68 10*3/uL 1.32-3.29 L MONO x10^3 (test code = 742-7) 0.61 10*3/uL 0.33-0.92 EOS x10^3 (test code = 711-2) 0.03-0.39 L BASO x10^3 (test code = 704-7) 0.01-0.07 Lab Interpretation (test code = 34962-5) Abnormal [facility] with Fsca0136-45-05 08:24:03* Test Item Value Reference Range Interpretation [...] g/dL 31.6-35.1 L RDW-SD (test code = 28082-4) 66.0 fL 39.0-49.9 H RDW-CV (test code = 788-0) 22.5 % 12.0-15.5 H PLT (test code = 777-3) 204 166-358 MPV (test code = 50650-9) 9.8 fL 9.5-12.9 NRBC/100 WBC (test code = 2123550661) 2.4 0.0-10.0 NRBC x10^3 (test code = 0262155339) 0.17 See_Comment [Automated messa ge] The system which generated this result transmitted reference range: 10*3/?L. The reference range was not used to interpret this result as normal/abnormal. GRAN MAT (NEUT) % (test code = 770-8) 80.3 % IMM GRAN % (test code = 6380334808) 1.70 % LYMPH % (test code = 736-9) 9.5 % MONO % (test code = 5905-5) 8.5 % EOS % (test code = 713-8) 0.0 % BASO % (test code = 706-2) 0.0 % GRAN MAT x10^3(ANC) (test code = 6759994722) 5.77 10*3/uL 1.88-7.09 IMM GRAN x10^3 (test code = 1124392359) 0.12 10*3/uL 0.00-0.06 H LYMPH x10^3 (test code = 731-0) 0.68 10*3/uL 1.32-3.29 L MONO x10^3 (test code = 742-7) 0.61 10*3/uL 0.33-0.92 EOS x10^3 (test code = 711-2) 0.03-0.39 L BASO x10^3 (test code = 704-7) 0.01-0.07 Lab Interpretation (test code = 49905-5) Abnormal [facility] with Oqye0024-07-28 08:24:03* Test Item Value Reference Range Interpretation [...] g/dL 31.6-35.1 L RDW-SD (test code = 19730-4) 66.0 fL 39.0-49.9 H RDW-CV (test code = 788-0) 22.5 % 12.0-15.5 H PLT (test code = 777-3) 204 166-358 MPV (test code = 20619-2) 9.8 fL 9.5-12.9 NRBC/100 WBC (test code = 7605509776) 2.4 0.0-10.0 NRBC x10^3 (test code = 5084659612) 0.17 See_Comment [Automated messa ge] The system which generated this result transmitted reference range: 10*3/?L. The reference range was not used to interpret this result as normal/abnormal. GRAN MAT (NEUT) % (test code = 770-8) 80.3 % IMM GRAN % (test code = 4557426748) 1.70 % LYMPH % (test code = 736-9) 9.5 % MONO % (test code = 5905-5) 8.5 % EOS % (test code = 713-8) 0.0 % BASO % (test code = 706-2) 0.0 % GRAN MAT x10^3(ANC) (test code = 8697897694) 5.77 10*3/uL 1.88-7.09 IMM GRAN x10^3 (test code = 8726840730) 0.12 10*3/uL 0.00-0.06 H LYMPH x10^3 (test code = 731-0) 0.68 10*3/uL 1.32-3.29 L MONO x10^3 (test code = 742-7) 0.61 10*3/uL 0.33-0.92 EOS x10^3 (test code = 711-2) 0.03-0.39 L BASO x10^3 (test code = 704-7) 0.01-0.07 Lab Interpretation (test code = 55506-4) Abnormal [facility] Acid Whole Xttko2983-15-71 08:04:10* Test Item Value Reference Range Interpretation Comme nts LACTIC ACID (test code = 7087276183) 4.15 mmol/L 0.50-2.20 H Lab Interpretation (test cod e = 95197-7) [facility] Lhojf4473-71-61 08:04:10* Test Item Value Reference Range Interpretation Comme nts LACTIC ACID (test code = 5833834230) 4.15 mmol/L 0.50-2.20 H Lab Interpretation (test cod e = 96544-4) [facility] Ghdux7085-09-97 08:04:10* Test Item Value Reference Range Interpretation Comme nts LACTIC ACID (test code = 6173507298) 4.15 mmol/L 0.50-2.20 H Lab Interpretation (test cod e = 03727-3) [facility] Tkden3146-45-89 05:11:29* Test Item Value Reference Range Interpretation Comme nts LACTIC ACID (test code = 3443069378) 4.23 mmol/L 0.50-2.20 H Lab Interpretation (test cod e = 64304-6) [facility] Xgtjr7158-59-58 05:11:29* Test Item Value Reference Range Interpretation Comme nts LACTIC ACID (test code = 0117867245) 4.23 mmol/L 0.50-2.20 H Lab Interpretation (test cod e = 75834-2) Abnormal [facility] Whole Rmmop2676-15-82 05:11:29* Test Item Value Reference Range Interpretation Comme nts LACTIC ACID (test code = 7471082831) 4.23 mmol/L 0.50-2.20 H Lab Interpretation (test cod e = 08867-6) [facility] Hemvf6937-16-63 03:16:26* Test Item Value Reference Range Interpretation Comme nts LACTIC ACID (test code = 8107895812) 3.66 mmol/L 0.50-2.20 H Lab Interpretation (test cod e = 77015-2) [facility] Eadec9658-09-13 03:16:26* Test Item Value Reference Range Interpretation Comme nts LACTIC ACID (test code = 5307015230) 3.66 mmol/L 0.50-2.20 H Lab Interpretation (test cod e = 03748-5) [facility] Ygtve2824-38-25 03:16:26* Test Item Value Reference Range Interpretation Comme nts LACTIC ACID (test code = 4186673005) 3.66 mmol/L 0.50-2.20 H Lab Interpretation (test cod e = 74723-4) Abnormal [facility] Acid Whole Flqpv2740-88-09 01:21:56* Test Item Value Reference Range Interpretation Comme nts LACTIC ACID (test code = 3416954791) 3.68 mmol/L 0.50-2.20 H Lab Interpretation (test cod e = 55231-2) Abnormal [facility] Acid Whole Inlxv4948-07-38 01:21:56* Test Item Value Reference Range Interpretation Comme nts LACTIC ACID (test code = 4298459061) 3.68 mmol/L 0.50-2.20 H Lab Interpretation (test cod e = 37922-0) [facility] Yvcrm2947-69-93 01:21:56* Test Item Value Reference Range Interpretation Comme nts LACTIC ACID (test code = 0308416625) 3.68 mmol/L 0.50-2.20 H Lab Interpretation (test cod e = 50227-0) Abnormal [facility] GLUCOSE (AUTOMATED)2023-11-23 01:07:13* Test Item Value Reference Range Interpretation Comme nts POCT GLU (test code = 5585363633) 193 mg/dL 70-110 H Lab Interpretation (test cod e = 91272-2) Abnormal [facility] GLUCOSE (AUTOMATED)2023-11-23 01:07:13* Test Item Value Reference Range Interpretation Comme nts POCT GLU (test code = 7258515628) 193 mg/dL 70-110 H Lab Interpretation (test cod e = 43125-3) Abnormal [facility] GLUCOSE (AUTOMATED)2023-11-23 01:07:13* Test Item Value Reference Range Interpretation Comme nts POCT GLU (test code = 3230218403) 193 mg/dL 70-110 H Lab Interpretation (test cod e = 58988-5) [facility] Lpkis7973-00-79 23:56:10* Test Item Value Reference Range Interpretation Comme nts LACTIC ACID (test code = 4263416903) 3.82 mmol/L 0.50-2.20 H Lab Interpretation (test cod e = 82971-0) [facility] Wjpis2273-90-06 23:56:10* Test Item Value Reference Range Interpretation Comme nts LACTIC ACID (test code = 7889974086) 3.82 mmol/L 0.50-2.20 H Lab Interpretation (test cod e = 12380-7) [facility] Rndnj0729-40-45 23:56:10* Test Item Value Reference Range Interpretation Comme nts LACTIC ACID (test code = 8384738685) 3.82 mmol/L 0.50-2.20 H Lab Interpretation (test cod e = 26113-8) Abnormal [facility] GLUCOSE (AUTOMATED)2023-11-22 22:00:27* Test Item Value Reference Range Interpretation Comme nts POCT GLU (test code = 4697187081) 218 mg/dL 70-110 H Lab Interpretation (test cod e = 56605-2) Abnormal [facility] GLUCOSE (AUTOMATED)2023-11-22 22:00:27* Test Item Value Reference Range Interpretation Comme nts POCT GLU (test code = 2734373654) 218 mg/dL 70-110 H Lab Interpretation (test cod e = 09983-5) Abnormal [facility] GLUCOSE (AUTOMATED)2023-11-22 22:00:27* Test Item Value Reference Range Interpretation Comme nts POCT GLU (test code = 8101510107) 218 mg/dL 70-110 H Lab Interpretation (test cod e = 72697-1) [facility] Etmyo0720-15-19 21:49:39* Test Item Value Reference Range Interpretation Comme nts LACTIC ACID (test code = 1815305278) 4.40 mmol/L 0.50-2.20 H Lab Interpretation (test cod e = 64947-9) [facility] Fzoec0683-53-29 21:49:39* Test Item Value Reference Range Interpretation Comme nts LACTIC ACID (test code = 3307954382) 4.40 mmol/L 0.50-2.20 H Lab Interpretation (test cod e = 57748-8) [facility] Gntun5775-98-84 21:49:39* Test Item Value Reference Range Interpretation Comme nts LACTIC ACID (test code = 0429167088) 4.40 mmol/L 0.50-2.20 H Lab Interpretation (test cod e = 60019-3) Abnormal [facility] GLUCOSE (AUTOMATED)2023-11-22 21:02:20* Test Item Value Reference Range Interpretation Comme nts POCT GLU (test code = 1792205518) 208 mg/dL 70-110 H Lab Interpretation (test cod e = 07404-7) Abnormal [facility] GLUCOSE (AUTOMATED)2023-11-22 21:02:20* Test Item Value Reference Range Interpretation Comme nts POCT GLU (test code = 2733168008) 208 mg/dL 70-110 H Lab Interpretation (test cod e = 50089-0) Abnormal [facility] GLUCOSE (AUTOMATED)2023-11-22 21:02:20* Test Item Value Reference Range Interpretation Comme nts POCT GLU (test code = 5409596675) 208 mg/dL 70-110 H Lab Interpretation (test cod e = 57259-9) [facility] Augyo4426-40-71 20:01:46* Test Item Value Reference Range Interpretation Comme nts LACTIC ACID (test code = 4369418253) 6.14 mmol/L 0.50-2.20 H Lab Interpretation (test cod e = 48443-2) [facility] Nqwhr7828-23-27 20:01:46* Test Item Value Reference Range Interpretation Comme nts LACTIC ACID (test code = 0103865548) 6.14 mmol/L 0.50-2.20 H Lab Interpretation (test cod e = 59719-5) [facility] Wutuc7801-90-78 20:01:46* Test Item Value Reference Range Interpretation Comme nts LACTIC ACID (test code = 1380405325) 6.14 mmol/L 0.50-2.20 H Lab Interpretation (test cod e = 66792-4) [facility] TTLYBSK6409-17-32 18:29:14 Procedure: ? RIGHT UPPER QUADRANT ULTRASOUND [...] are sonographically unremarkable inappearance. ?No [facility]ites[facility] 18:29:14Procedure: ? RIGHT UPPER [...] are sonographically unremarkable inappearance. ?No evidence to ascites.[facility] Transthoracic echo (TTE)2023-11-22 18:16:22* Test Item Value Reference Range Interpretation Comme nts Height (test code = 3711818602) 63 in Weight (test code = 1047709427) 208 lbs Systolic BP (test code = 9823055041) 146 mmHg Diastolic BP (test code = 3891558192) 103 mmHg Heart Rate (test code = 0365447800) 112 bpm BSA (test code = 2583681018) 1.97 m2 LVOT diameter (test code = 0419567449) 2.5 cm LVOT area (test code = 6419807413) 5.00 cm2 LA size (test code = 1732096815) 4.2 cm MV Peak E Evette (test code = 1628849912) 128.5 cm/s MV Peak A Evette (test code = 3988049470) 62.4 cm/s E/A ratio (test code = 9407003459) 2.06 ratio E wave decelartion time (test code = 7201595112) 0.12 s MV Prop V (test code = 4588733411) 38.00 cm/s LAV(MOD-sp4) (test code = 5604595696) 68.70 mL Tapse (test code = 2506444448) 0.7 cm LA Volume Index (BP) (test code = 2528120777) 34.6 mL/m2 LA volume (BP) (test code = 2709592123) 68.0 mL LAV(MOD-sp2) (test code = 9917671671) 66.30 mL Ao peak evette (test code = 2780840375) 124.9 cm/s Ao max PG (test code = 5021195165) 6.20 mm[Hg] AV peak gradient (test code = 4347729360) 6.2 mmHg LVOT stroke volume (test code = 2433957238) 42.40 cm3 LVOT peak evette (test code = 9913428495) 67.8 cm/s LVOT mn grad (test code = 0222031016) 0.9 mmHg AV LVOT peak gradient (test code = 5812270825) 1.84 mmHg LVOT peak VTI (test code = 0521560314) 8.4 cm AV area peak evette (test code = 5071895806) 2.7 cm2 LV V1 mean (test code = 2045048151) 43.20 cm/s TR Peak Evette (test code = 0324368372) 247.7 cm/s Triscuspid Valve Regurgitation Peak Gradient (test code = 6089218806) 24.5 mmHg MR max PG (test code = 9738323130) 85.20 mm[Hg] MR max evette (test code = 5638957599) 461.50 cm/s Mr max evette (test code = 3221653095) 461.5 m/s AV regurgitation pressure 1/2 time (test code = 5144937610) 305.5 ms AI dec slope (test code = 2653135597) 432.10 cm/s2 AI max evette (test code = 7910530597) 450.60 cm/s AI max PG (test code = 9658074602) 81.20 mm[Hg] LVIDD (test code = 9405049950) 5.00 cm Left Ventricular End Diastolic Volume by Teichholz Method (test code = 7720975) 116.6 mL IVS (test code = 0058435501) 0.93 cm Interventricular Septum Diastolic Thickness by 2D (test code = 5302410) 0.93 cm LVPWD (test code = 1159239795) 1.00 cm PW (test code = 0731697635) 1.00 cm 0.6-1.1 EF(Teich) (test code = 1029360719) 33.90 % LVIDS (test code = 3663171407) 4.20 cm Left Ventricular End Systolic Volume by Teichholz Method (test code = 4823917) 77.1 mL FS (test code = 7242318000) 16 % EF - 2D (test code = 60505038) 33.90 % Radiology Study observation (narrative) (test code = 14932-4) LYNDSAY (test code = LYNDSAY) ?Left?Ventricle: Left [...] mL of Definity ultrasound enhancing agent [facility]16:22* Test Item Value Reference Range Interpretation Comme nts Height (test code = 0663799306) 63 in Weight (test code = 4108578785) 208 lbs Systolic BP (test code = 5196768331) 146 mmHg Diastolic BP (test code = 2431332233) 103 mmHg Heart Rate (test code = 7293156273) 112 bpm BSA (test code = 0667985330) 1.97 m2 LVOT diameter (test code = 1077825246) 2.5 cm LVOT area (test code = 7583778859) 5.00 cm2 LA size (test code = 1516010168) 4.2 cm MV Peak E Evette (test code = 6487060307) 128.5 cm/s MV Peak A Evette (test code = 1235318554) 62.4 cm/s E/A ratio (test code = 6685827240) 2.06 ratio E wave decelartion time (test code = 8575163032) 0.12 s MV Prop V (test code = 7067743889) 38.00 cm/s LAV(MOD-sp4) (test code = 7905633710) 68.70 mL Tapse (test code = 5500367088) 0.7 cm LA Volume Index (BP) (test code = 7221436142) 34.6 mL/m2 LA volume (BP) (test code = 1788651709) 68.0 mL LAV(MOD-sp2) (test code = 6039972088) 66.30 mL Ao peak evette (test code = 7174752093) 124.9 cm/s Ao max PG (test code = 8943493772) 6.20 mm[Hg] AV peak gradient (test code = 1332055419) 6.2 mmHg LVOT stroke volume (test code = 0802555205) 42.40 cm3 LVOT peak evette (test code = 9330454444) 67.8 cm/s LVOT mn grad (test code = 1954764455) 0.9 mmHg AV LVOT peak gradient (test code = 0138409693) 1.84 mmHg LVOT peak VTI (test code = 1675783564) 8.4 cm AV area peak evette (test code = 3000512361) 2.7 cm2 LV V1 mean (test code = 5498005746) 43.20 cm/s TR Peak Evette (test code = 2298690707) 247.7 cm/s Triscuspid Valve Regurgitation Peak Gradient (test code = 5450304862) 24.5 mmHg MR max PG (test code = 9364730222) 85.20 mm[Hg] MR max evette (test code = 9273352035) 461.50 cm/s Mr max evette (test code = 9866164299) 461.5 m/s AV regurgitation pressure 1/2 time (test code = 0333409827) 305.5 ms AI dec slope (test code = 7854937077) 432.10 cm/s2 AI max evette (test code = 0678455031) 450.60 cm/s AI max PG (test code = 1284394760) 81.20 mm[Hg] LVIDD (test code = 6895614594) 5.00 cm Left Ventricular End Diastolic Volume by Teichholz Method (test code = 6245509) 116.6 mL IVS (test code = 4432160997) 0.93 cm Interventricular Septum Diastolic Thickness by 2D (test code = 5209012) 0.93 cm LVPWD (test code = 1949260329) 1.00 cm PW (test code = 4143132357) 1.00 cm 0.6-1.1 EF(Teich) (test code = 4304546845) 33.90 % LVIDS (test code = 2045625717) 4.20 cm Left Ventricular End Systolic Volume by Teichholz Method (test code = 2968380) 77.1 mL FS (test code = 7951226645) 16 % EF - 2D (test code = 00563811) 33.90 % Radiology Study observation (narrative) (test code = 98258-1) LYNDSAY (test code = LYNDSAY) ?Left?Ventricle: Left [...] mL of Definity ultrasound enhancing agent used. [facility] Wjohd8456-18-91 17:29:30* Test Item Value Reference Range Interpretation Comme nts LACTIC ACID (test code = 1739692850) 4.00 mmol/L 0.50-2.20 H QUES Lab Interpretation (test cod e = 75320-7) Abnormal [facility] CenterLamaic Acid Whole Ruyvd3140-83-14 17:29:30* Test Item Value Reference Range Interpretation Comme nts LACTIC ACID (test code = 0785767419) 4.00 mmol/L 0.50-2.20 H QUES Lab Interpretation (test cod e = 17402-2) Abnormal [facility] Acid Whole Jnjzt9818-07-46 17:29:30* Test Item Value Reference Range Interpretation Comme nts LACTIC ACID (test code = 9209627312) 4.00 mmol/L 0.50-2.20 H QUES Lab Interpretation (test cod e = 11032-8) Abnormal [facility] GLUCOSE (AUTOMATED)2023-11-22 17:01:27* Test Item Value Reference Range Interpretation Comme nts POCT GLU (test code = 6123246273) 152 mg/dL 70-110 H Notified Provide r Lab Interpretation (test code = 22205-0) Abnormal [facility] GLUCOSE (AUTOMATED)2023-11-22 17:01:27* Test Item Value Reference Range Interpretation Comme nts POCT GLU (test code = 3594067748) 152 mg/dL 70-110 H Notified Provide r Lab Interpretation (test code = 21714-3) Abnormal [facility] GLUCOSE (AUTOMATED)2023-11-22 17:01:27* Test Item Value Reference Range Interpretation Comme nts POCT GLU (test code = 3342643727) 152 mg/dL 70-110 H Notified Provide r Lab Interpretation (test code = 21084-7) Abnormal [facility] Zqnpo3781-89-66 16:28:02* Test Item Value Reference Range Interpretation Comme nts IRON (test code = 5608094786) 44 ug/dL 50-160 L TIBC (test code = 1803490297) 395 ug/dL 250-410 % FE SAT (test code = 9500697366) 11 % 20-50 L Lab Interpretation (test cod e = 07555-0) Abnormal [facility] Lzroy1520-11-02 16:28:02* Test Item Value Reference Range Interpretation Comme nts IRON (test code = 3674610474) 44 ug/dL 50-160 L TIBC (test code = 9793625192) 395 ug/dL 250-410 % FE SAT (test code = 6499236984) 11 % 20-50 L Lab Interpretation (test cod e = 85624-3) [facility] Ghlgm7210-98-90 16:28:02* Test Item Value Reference Range Interpretation Comme nts IRON (test code = 7247504826) 44 ug/dL 50-160 L TIBC (test code = 7190703467) 395 ug/dL 250-410 % FE SAT (test code = 2843661209) 11 % 20-50 L Lab Interpretation (test cod e = 28017-9) Abnormal [facility]. Metabolic Panel (66729)2023-11-22 16:20:58* Test Item Value Reference Range Interpretation Comme nts NA (test code = 9741298541) 135 mmol/L 135-145 K (test code = 3879758509) 4.0 mmol/L 3.5-5.0 Slight hemolysis CL (test code = 5462365077) 108 mmol/L 98-108 CO2 TOTAL (test code = 7343926084) 20 mmol/L 23-31 L AGAP (test code = 4060773954) 7 2-16 BUN (test code = 5672918743) 20 mg/dL 7-23 Slight hemolysis GLUCOSE (test code = 6579319526) 136 mg/dL 70-110 H CREATININE (test code = 2160-0) 0.48 mg/dL 0.50-1.04 L TOTAL BILI (test code = 4849669566) 0.8 mg/dL 0.1-1.1 CALCIUM (test code = 9410597826) 6.7 mg/dL 8.6-10.6 L T PROTEIN (test code = 3290993246) 5.6 g/dL 6.3-8.2 L ALBUMIN (test code = 1476350108) 3.1 g/dL 3.5-5.0 L ALK PHOS (test code = 4035208714) 282 U/L 34-122 H Slight hemolysis ALTv (test code = 1742-6) 196 U/L 5-35 H AST(SGOT) (test code = 7668873191) 56 U/L 13-40 H Slight hemolysis eGFR (test code = 63543-1) 114.8 mL/min/1.73m2 CKD-EPI eGFR (2020). Assuming creatinine has been stable day-to-day for at least three months, the eGFR indicates Category G1 (>= 90 mL/min/1.73 m2) Lab Interpretation (test code = 64856-0) Abnormal [facility]. Metabolic Panel (43829)2023-11-22 16:20:58* Test Item Value Reference Range Interpretation Comme nts NA (test code = 8036798135) 135 mmol/L 135-145 K (test code = 1302595275) 4.0 mmol/L 3.5-5.0 Slight hemolysis CL (test code = 1230480363) 108 mmol/L 98-108 CO2 TOTAL (test code = 0574669043) 20 mmol/L 23-31 L AGAP (test code = 3060332353) 7 2-16 BUN (test code = 0358642315) 20 mg/dL 7-23 Slight hemolysis GLUCOSE (test code = 5417897818) 136 mg/dL 70-110 H CREATININE (test code = 2160-0) 0.48 mg/dL 0.50-1.04 L TOTAL BILI (test code = 0251037877) 0.8 mg/dL 0.1-1.1 CALCIUM (test code = 4504731240) 6.7 mg/dL 8.6-10.6 L T PROTEIN (test code = 9915589788) 5.6 g/dL 6.3-8.2 L ALBUMIN (test code = 3137959210) 3.1 g/dL 3.5-5.0 L ALK PHOS (test code = 1334976429) 282 U/L 34-122 H Slight hemolysis ALTv (test code = 1742-6) 196 U/L 5-35 H AST(SGOT) (test code = 6406077183) 56 U/L 13-40 H Slight hemolysis eGFR (test code = 87491-2) 114.8 mL/min/1.73m2 CKD-EPI eGFR (2020). Assuming creatinine has been stable day-to-day for at least three months, the eGFR indicates Category G1 (>= 90 mL/min/1.73 m2) Lab Interpretation (test code = 34711-7) [facility]normal [facility] (75979)2023-11-22 16:20:58* Test Item Value Reference Range Interpretation Comme nts NA (test code = 1175050923) 135 mmol/L 135-145 K (test code = 1742872494) 4.0 mmol/L 3.5-5.0 Slight hemolysis CL (test code = 8804963526) 108 mmol/L 98-108 CO2 TOTAL (test code = 0318875090) 20 mmol/L 23-31 L AGAP (test code = 7949849008) 7 2-16 BUN (test code = 8249593092) 20 mg/dL 7-23 Slight hemolysis GLUCOSE (test code = 0961058208) 136 mg/dL 70-110 H CREATININE (test code = 2160-0) 0.48 mg/dL 0.50-1.04 L TOTAL BILI (test code = 1384457771) 0.8 mg/dL 0.1-1.1 CALCIUM (test code = 9961775040) 6.7 mg/dL 8.6-10.6 L T PROTEIN (test code = 3170353805) 5.6 g/dL 6.3-8.2 L ALBUMIN (test code = 2947805629) 3.1 g/dL 3.5-5.0 L ALK PHOS (test code = 6437537054) 282 U/L 34-122 H Slight hemolysis ALTv (test code = 1742-6) 196 U/L 5-35 H AST(SGOT) (test code = 0608342575) 56 U/L 13-40 H Slight hemolysis eGFR (test code = 03295-5) 114.8 mL/min/1.73m2 CKD-EPI eGFR (2020). Assuming creatinine has been stable day-to-day for at least three months, the eGFR indicates Category G1 (>= 90 mL/min/1.73 m2) Lab Interpretation (test code = 12504-5) [facility]normal [facility] [id number] 15:51:03PROCEDURE: CT ANGIO CHEST WITH CONTRAST - [...] cholecystectomy. A left adrenal 2.7cm nodule suspected. [facility] [id number] 15:51:03PROCEDURE: CT ANGIO CHEST WITH CONTRAST - [...] cholecystectomy. A left adrenal 2.7cm nodule suspected. [facility] CenterL[facility] Acid Whole Lmheq6971-48-97 14:33:11* Test Item Value Reference Range Interpretation Comme nts LACTIC ACID (test code = 5540025810) 4.04 mmol/L 0.50-2.20 H QUES Lab Interpretation (test cod e = 92214-5) [facility] Ildxm4042-01-93 14:33:11* Test Item Value Reference Range Interpretation Comme nts LACTIC ACID (test code = 1820360119) 4.04 mmol/L 0.50-2.20 H QUES Lab Interpretation (test cod e = 14509-1) Abnormal [facility] Acid Whole Bsfcm6380-49-94 14:33:11* Test Item Value Reference Range Interpretation Comme nts LACTIC ACID (test code = 8105028948) 4.04 mmol/L 0.50-2.20 H QUES Lab Interpretation (test cod e = 56149-5) Abnormal [facility] GLUCOSE (AUTOMATED)2023-11-22 13:26:51* Test Item Value Reference Range Interpretation Comme nts POCT GLU (test code = 6827668786) 180 mg/dL 70-110 H Notified Provide r Lab Interpretation (test code = 62969-5) Abnormal [facility] GLUCOSE (AUTOMATED)2023-11-22 13:26:51* Test Item Value Reference Range Interpretation Comme nts POCT GLU (test code = 9715277240) 180 mg/dL 70-110 H Notified Provide r Lab Interpretation (test code = 38416-0) Abnormal [facility] GLUCOSE (AUTOMATED)2023-11-22 13:26:51* Test Item Value Reference Range Interpretation Comme nts POCT GLU (test code = 3755596036) 180 mg/dL 70-110 H Notified Provide r Lab Interpretation (test code = 82389-6) [facility]normal [facility]XR [facility]+ VW [id number] 09:05:30 Exam: XR SHOULDER 2+ VW RIGHT, 11/22/2023 1:45 AM. Ordering Physician: IVIS MCDERMOTT. History: R arm injury . Technique: Routine view(s) XR SHOULDER 2+ VW RIGHT. Comparison: None. Findings: No evidence of traumatic malalignment. No acute fracture. 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 Eburnation of thegreater tuberosity, sequela of chronic rotator cuff injury. No focalsofttissue swelling. Lungs are clear as visualized. [facility] fusion. [facility] [id number] 09:05:30 Exam: XR SHOULDER 2+ VW RIGHT, 11/22/2023 1:45 AM. Ordering Physician: IVIS MCDERMOTT. History: R arm injury . Technique: Routine view(s) XR SHOULDER 2+ VW RIGHT. Comparison: None. Findings: No evidence of traumatic malalignment. No acute fracture. 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 Eburnation of thegreater tuberosity, sequela of chronic rotator cuff injury. No focalsofttissue swelling. Lungs are clear as visualized. Cervical fusion. [facility] CenterUS LOWER EXTREMITY VEIN WITH COMPRESSION [...] No DVT on theleft.[facility] LOWER EXTREMITY VEIN WITH COMPRESSION BILATERAL (ONLY [...] waveforms on the right. No DVT on theleft.[facility] CenterLactic Acid Whole Blood 2023-11-22 08:16:23* Test Item Value Reference Range Interpretation Comme nts LACTIC ACID (test code = 7647506875) 3.93 mmol/L 0.50-2.20 H Lab Interpretation (test cod e = 07722-2) Abnormal [facility] CenterL[facility] Whole Ocpqz4726-80-60 08:16:23* Test Item Value Reference Range Interpretation Comme nts LACTIC ACID (test code = 9032899467) 3.93 mmol/L 0.50-2.20 H Lab Interpretation (test cod e = 51208-2) Abnormal [facility] CenterL[facility] Acid Whole Futar7630-58-93 08:16:23* Test Item Value Reference Range Interpretation Comme nts LACTIC ACID (test code = 8212080457) 3.93 mmol/L 0.50-2.20 H Lab Interpretation (test cod e = 61570-7) Abnormal [facility] CenterProthrombin Time / [id number] 05:00:31* Test Item Value Reference Range Interpretation Comme [facility] PROTIME PATIENT (test code = 5964-2) 15.4 10.1-12.6 H INR (test code = 6301-6) 1.3 Normal INR <1.1; Warfarin Therapeutic range 2.0 to 3.0 or 2.5 to 3.5, depending upon the indications. Lab Interpretation (test code = 30577-0) Abnormal [facility] CenteraPTT2024-05-05 05:00:31* Test Item Value Reference Range Interpretation Comme [facility] APTT Patient (test code = 3173-2) 27 26-36 LYNDSAY (test code = LYNDSAY) [facility] patient population mean normal value for aPTT is 30 seconds. Lab Interpretation (test code = 45084-1) Normal [facility] CenterProthrombin Time / [id number] 05:00:31* Test Item Value Reference Range Interpretation Comme nts PROTIME PATIENT (test code = 5964-2) 15.4 10.1-12.6 H INR (test code = 6301-6) 1.3 Normal INR <1.1; Warfarin Therapeutic range 2.0 to 3.0 or 2.5 to 3.5, depending upon the indications. Lab Interpretation (test code = 60388-2) Abnormal [facility] CenteraPTT2024-05-05 05:00:31* Test Item Value Reference Range Interpretation Comme nts APTT Patient (test code = 3173-2) LYNDSAY (test code = LYNDSAY) [facility] patient population mean normal value for aPTT is 30 seconds. Lab Interpretation (test code = 51517-0) Normal [facility] CenterProthrombin Time / [id number] 05:00:31* Test Item Value Reference Range Interpretation Comme nts PROTIME PATIENT (test code = 5964-2) 15.4 10.1-12.6 H INR (test code = 6301-6) 1.3 Normal INR <1.1; Warfarin Therapeutic range 2.0 to 3.0 or 2.5 to 3.5, depending upon the indications. Lab Interpretation (test code = 86364-3) Abnormal [facility] CenteraPTT2024-05-05 05:00:31* Test Item Value Reference Range Interpretation Comme nts APTT Patient (test code = 3173-2) LYNDSAY (test code = LYNDSAY) [facility] patient population mean normal value for aPTT is 30 seconds. Lab Interpretation (test code = 30211-6) Normal [facility] CenterThyroid Stimulating Uphuyrm6650-22-83 04:25:31 * Test Item Value Reference Range Interpretation Comme nts TSH (test code = 3877639592) 5.26 0.45-4.70 H Lab Interpretation (test cod e = 88093-5) Abnormal [facility] CenterThyroid Stimulating Ptgdksf6124-01-02 04:25:31 * Test Item Value Reference Range Interpretation Comme nts TSH (test code = 5731781431) 5.26 0.45-4.70 H Lab Interpretation (test cod e = 31397-2) Abnormal [facility] CenterThyroid Stimulating Parywar6691-84-72 04:25:31 * Test Item Value Reference Range Interpretation Comme nts TSH (test code = 9782553995) 5.26 0.45-4.70 H Lab Interpretation (test cod e = 93456-1) Abnormal [facility] Sauc3709-93-91 04:18:14Megan Rondon MD ? ? 11/21/2023 11:18 PMCritical Care Performed by: Megan Rondon, MDAuthorized by: Megan Rondon MD ?Critical care [...] of separately billable procedures and treating other patients.[facility] [id number] 04:11:28* Test Item Value Reference Range Interpretation Comme nts FREE T4 (test code = 1548484078) 1.07 0.78-2.20 Lab Interpretation (test cod e = 38634-9) Normal [facility] [id number] 04:11:28* Test Item Value Reference Range Interpretation Comme nts FREE T4 (test code = 2840587879) 1.07 0.78-2.20 Lab Interpretation (test cod e = 16134-8) Normal [facility] CenterFree [id number] 04:11:28* Test Item Value Reference Range Interpretation Comme nts FREE T4 (test code = 3902319954) 1.07 0.78-2.20 Lab Interpretation (test cod e = 97353-1) Normal [facility]XR CHEST 1 [id number] 03:22:56Exam: Chest (1 View), 11/21/2023 9:15 PM. Ordering Physician: MEGAN RONDON. History: Chest pain. Technique: One view of the chest. Comparison: 12/11/2022. Findings: Cardiac silhouette is moderately enlarged. There is no pneumothorax. Thereis no consolidation or pleural effusion. Stable mild diffuse interstitialopacities are noted. Pleural and diaphragmatic contours are normal. Changesof anterior ce rvical discectomy and fusion are seen.[facility]XR CHEST 1 [id number] 03:22:56Exam: Chest (1 View), 11/21/2023 9:15 PM. Ordering Physician: MEGAN RONDON. History: Chest pain. Technique: One view of the chest. Comparison: 12/11/2022. Findings: Cardiac silhouette is moderately enl arged. There is no pneumothorax. Thereis no consolidation or pleural effusion. Stable mild diffuse interstitialopacities are noted. Pleural and diaphragmatic contours are normal. Changesof anterior cervical discectomy and fusion are seen. [facility] CenterRADIOLOGY [id number] 18:34:06 Ordered by an unspecified provider.[facility] CenterRADIOLOGY KJRGBCVHXUDLQ7370-16-32 19:18:01Ordered by an unspecified provider.[facility] CenterBLOOD EZMHYSH7436-43-16 07:00:10* Test Item Value Reference Range Interpretation Comme nts CULTURE (BEAKER) (test code = 1095) No growth in 5 days XR KNEE 3 VIEWS LEFT Non-Weight Qxahxkj2532-40-56 09:27:00XR KNEE 3 VIEWS LEFT CLINICAL INDICATION: S/p fall COMPARISON: None FINDINGS: 3views of the left kne e. There is no fracture or malalignment. The femorotibial andfemoropatellar joint spaces are intact. No joint fluid is demonstrated.Surrounding soft tissues are unremarkable. Scattered atheroscleroticvascular calcifications.[facility] 3 VIEWS [id number] 09:27:00 [facility] [...] Signed By: Maxim Sultana09/08/2023 09:29 CDTWorkstation Name: [id number] luekf4848-31-53 08:53:50* Test Item Value Reference Range Interpretation Comme nts POC-Glucose Meter (test code = 1538) 101 mg/dL 70-110 : TESTED AT [place] [id number] [facility], [address]: Manager Marketing Communications/Information Developer ID = [id number] for Umeh, Akumbu Lab Interpretation (test code = 98095-4) [facility] GPKXQ9455-76-36 08:53:50* Test Item Value Reference Range Interpretation Comme nts POC-GLUCOSE METER (BEAKER) (test code = 1538) 101 mg/dL 70-110 : TESTED AT [facility] [address] [facility], [address]: Manager Marketing Communications/Information Developer ID = [id number] for Umeh, Akumbu BASIC METABOLIC SOKKV6810-94-76 05:40:45* Test Item Value Reference Range Interpretation [...] GFR is not applicable for dialysis patients Manager Marketing Communications ID - BNBIEZPAPPERSZ6385-09-99 05:40:45* Test Item Value Reference Range Interpretation Comme nts MAGNESIUM (BEAKER) (test cod e = 627) 2.1 mg/dL 1.6-2.6 Manager Marketing [employer] ID - DGSBGJKDLVCSQSK5298-03-40 05:40:45* Test Item Value Reference Range Interpretation Comme nts PHOSPHORUS (BEAKER) (test co de = 604) 5.0 mg/dL 2.3-4.7 H Manager Marketing [employer] ID - ADMINCBC W/PLT COUNT & AUTO [id number] 04:49:23* Test Item Value Reference Range Interpretation [...] code = 2801) 0.40 % 0.00-1.00 POCT-GLUCOSE [id number] 21:40:23* Test Item Value Reference Range Interpretation Comme nts POC-GLUCOSE METER (BEAKER) (test code = 1538) 144 mg/dL 70-110 H : TESTED AT [facility] [address] [facility], [address]: Manager Marketing Communications/Information Developer ID = [id number] for Diana Baeza Venous doppler legs kawtdxvar5571-02-13 14:27:12PV LAB - Lower Extremities DVT Study Demographics Patient Name YUE ROMERO Date of Study 09/07/2023 [place] Age 53 Visit Number [id number] Gender Female Accession Number [id number] Date of 1970 Referring EDWARD FERRER Room Number 2263 Physician Management Professional Adalberto Wood Interpreting John Solorio, Physician FellowProcedureType [...] in cm/s ; Diameters are measured in [facility] XWRSDLDEQ5781-33-34 04:05:54* Test Item Value Reference Range Interpretation Comme nts MAGNESIUM (BEAKER) (test code = 627) 2.0 mg/dL 1.6-2.6 Specimen sligh tly hemolyzed Manager Marketing Communications ID - MADELINE PRIJGFIEIAK4098-59-02 04:05:54* Test Item Value Reference Range Interpretation Comme nts PHOSPHORUS (BEAKER) (test code = 604) 4.5 mg/dL 2.3-4.7 Specimen sligh tly hemolyzed Manager Marketing [employer] ID - MADELINE WBASIC METABOLIC KZPBL5149-53-50 04:05:54* Test Item Value Reference Range Interpretation [...] GFR is not applicable for dialysis patients Manager Marketing Communications ID - MADELINE WCBC W/PLT COUNT & AUTO IYSWUIPVSBZG2311-49-03 03:40:48* Test Item Value Reference Range Interpretation [...] code = 2801) 0.30 % 0.00-1.00 POCT-GLUCOSE [id number] 21:28:35* Test Item Value Reference Range Interpretation Comme nts POC-GLUCOSE METER (BEAKER) (test code = 1538) 127 mg/dL 70-110 H : TESTED AT [place] [id number] [facility], [address]: Manager Marketing Communications/Information Developer ID = [id number] for Ryan Morin POCT-GLUCOSE [id number] 18:49:21* Test Item Value Reference Range Interpretation Comme nts POC-GLUCOSE METER (BEAKER) (test code = 1538) 122 mg/dL 70-110 H : TESTED AT [place] [id number] [facility], [address]: Manager Marketing Communications/Information Developer ID = [id number] for Lauren Santillan POCT-GLUCOSE [id number] 13:27:27* Test Item Value Reference Range Interpretation Comme nts POC-GLUCOSE METER (BEAKER) (test code = 1538) 130 mg/dL 70-110 H : TESTED AT [place] [id number] [facility], [address]: Manager Marketing Communications/Information Developer ID = [id number] for Lauren Santillan XGJIDOQCZ3448-20-91 09:09:14* Test Item Value Reference Range Interpretation Comme nts MAGNESIUM (BEAKER) (test cod e = 627) 2.2 mg/dL 1.6-2.6 DSNHDJYWEO1452-42-72 09:09:14* Test Item Value Reference Range Interpretation Comme nts PHOSPHORUS (BEAKER) (test co de = 604) 4.8 mg/dL 2.3-4.7 H BASIC METABOLIC [id number] 09:09:14* Test Item Value Reference Range Interpretation [...] is not applicable for dialysis patients POCT-GLUCOSE [id number] 08:33:30* Test Item Value Reference Range Interpretation Comme nts POC-GLUCOSE METER (BEAKER) (test code = 1538) 132 mg/dL 70-110 H : TESTED AT [facility] [address] [facility], [address]: Manager Marketing Communications/Information Developer ID = [id number] for Lauren Santillan CBC W/PLT COUNT & AUTO [id number] 05:47:59* Test Item Value Reference Range Interpretation [...] code = 2801) 0.40 % 0.00-1.00 POCT-GLUCOSE [id number] 21:35:37* Test Item Value Reference Range Interpretation Comme nts POC-GLUCOSE METER (LATOYA) (test code = 1538) 129 mg/dL 70-110 H : TESTED AT [facility] [address] [facility] [place] [place], [address]: Manager Marketing Communications/Information Developer ID = [id number] for Ryan Morin MR Brain Without & With IV Glmdgdht6089-36-93 15:49:58MR BRAIN WITH & WITHOUT IV CONTRAST [...] limits. No obstructive paranasal sinus disease. Additionalfindings: None.[facility]MR [facility] WITH & WITHOUT IV KFMGHUQJ5871-74-30 15:49:58 [facility] [...] Signed By: Zeinab Dempsey09/05/2023 15:53 CDTWorkstation Name: [id number] METER 2023-09-05 08:34:25* Test Item Value Reference Range Interpretation Comme nts POC-GLUCOSE METER (BEAKER) (test code = 1538) 115 mg/dL 70-110 H : TESTED AT [facility] [address] [facility], [address]: Manager Marketing Communications/Information Developer ID = [id number] for DOMINGA AMADOR BASIC METABOLIC [id number] 06:06:56* Test Item Value Reference Range Interpretation [...] GFR is not applicable for dialysis patients Manager Marketing Communications ID - [id number] 06:06:56* Test Item Value Reference Range Interpretation Comme nts MAGNESIUM (BEAKER) (test cod e = 627) 2.2 mg/dL 1.6-2.6 Manager Marketing Communications ID - [id number] 06:06:56* Test Item Value Reference Range Interpretation Comme nts PHOSPHORUS (BEAKER) (test co de = 604) 3.8 mg/dL 2.3-4.7 Manager Marketing Communications ID - ADMINCBC W/PLT COUNT & AUTO [id number] 05:29:32* Test Item Value Reference Range Interpretation [...] code = 2801) 0.50 % 0.00-1.00 POCT-GLUCOSE [id number] 04:55:18* Test Item Value Reference Range Interpretation Comme nts POC-GLUCOSE METER (BEAKER) (test code = 1538) 99 mg/dL 70-110 : TESTED AT [place] [id number] [facility], [address]: Manager Marketing Communications/Information Developer ID = [id number] for Mikel, Kyahawn POCT-GLUCOSE [id number] 21:49:23* Test Item Value Reference Range Interpretation Comme nts POC-GLUCOSE METER (BEAKER) (test code = 1538) 124 mg/dL 70-110 H : TESTED AT [facility] [address] [facility], [address]: Manager Marketing Communications/Information Developer ID = [id number] for Mikel, Reshawn POCT-GLUCOSE [id number] 15:55:53* Test Item Value Reference Range Interpretation Comme nts POC-GLUCOSE METER (BEAKER) (test code = 1538) 126 mg/dL 70-110 H : TESTED AT [facility] [address] [facility], [address]: Manager Marketing Communications/Information Developer ID = [id number] for UrielTramaine montgomery [id number] 12:37:56* Test Item Value Reference Range Interpretation Comme nts PROCALCITONIN (BEAKER) (test code = 3036) < ng/mL <0.05 SEPSIS RISK (ng/mL)Low: 0.05-0.50Intermediate: 0.51-2.00High: >=2.01SARS- CoV2/Influenza/RSV [id number] 12:18:09* Test Item Value Reference Range Interpretation Comments SARS-COV2/RT-PCR (test code = 73780-8) Negative Negative The SARS-CoV-2 target nucleic acids [...] specimen. Influenza B RT-PCR (test code = 31116-1) Negative Negative The Flu B target nucleic acids are not detected in this specimen. RSV by RT-PCR (test code = 02648-4) Negative Negative The RSV target nucleic acids [...] SARS-CoV-2/Flu/RSV by their healthcare provider. Results from [facility] Xpert Xpress SARS-CoV-2/Flu/RSV test should be correlated [...] of the Act. Fact Sheet for Healthcare Providers:https://[employer]/Docu ments/Xpert%20Xpres s%20SARS%20CoV-2/Fa ct%20Sheets/302-390 2%50DCNE-MGG-2%20HE ALTHCARE%20PROVIDER S%20FACT%20SHEET.pd f Fact Sheet for Healthcare Patients:https://[employer]/Docum ents/Xpert%20Xpress %20SARS%20Cov-2/Fac t%20Sheets/302-3801 %92LTYR-GEY-9%20PAT IENT%20FACT%20SHEET .pdf Lab Interpretation (test code = 79953-4) [facility]/RSV [id number] 12:18:09* Test Item Value Reference Range Interpretation Comme nts SARS-COV2/RT-PCR (test code = 4638957) Negative Negative The SARS-CoV-2 t arget nucleic [...] provider. INFLUENZA A RT-PCR (test code = 4822213) Negative Negative The Flu A target nucleic acids are not detected in this specimen. INFLUENZA B RT-PCR (test code = 1298936) Negative Negative The Flu B target nucleic acids are not detected in this specimen. RSV RT-PCR (test code = 7081674) Negative Negative The RSV target n ucleic [...] SARS-CoV-2/Flu/RSV by their healthcare provider. Results from [facility] Xpert Xpress SARS-CoV-2/Flu/RSV test should be correlated [...] 564(g) of the Act.Fact Sheet for Healthcare Providers:https://www.[employer]/Documents/Xpert%20Xpress%20SARS%20CoV-2/Fact%2 0Sheets/302-3902%42ZVRY-HKS-5%20HEALTHCARE%20PROVIDERS%20FACT%20SHEET.pdfFact Sheet for Healthcare Patients:https://ww w.[employer]/Documents/Xpert%20Xpress%20SARS%20Cov-2/Fact%20Sheets/302-1860%20S ARS-COV-2%20PATIENT%20FACT%20SHEET.pdfPOCT-GLUCOSE [id number] 11:08:35* Test Item Value Reference Range Interpretation Comme nts POC-GLUCOSE METER (BEAKER) (test code = 1538) 111 mg/dL 70-110 H : TESTED AT [facility] [address] [facility], [id number]: Manager Marketing Communications/Information Developer ID = [id number] for HemTramaine montgomery POCT-GLUCOSE [id number] 08:16:42* Test Item Value Reference Range Interpretation Comme nts POC-GLUCOSE METER (BEAKER) (test code = 1538) 108 mg/dL 70-110 : TESTED AT [facility] [address] [facility], [address]: Manager Marketing Communications/Information Developer ID = [id number] for Beata Vargas MR spine lumbar without IV npojrhfu9776-01-37 07:58:49MR LUMBAR SPINE WITHOUT IV CONTRAST, MR [...] Posterior ligament ossifications at the calcifications at S15-M97aqrmsah moderate spinal canal stenosisPosterior disc osteophyte at the T11-T12 level causing mild spinal canalstenosis The spinal cord is normal in caliber and signal intensity. There is no significant foraminal or spinal canal stenosis. 2.1 x 2.3 cm left adrenal nodule, incompletely characterized Paraspinal soft tissues are unremarkable. Lumbar spine: Postoperative changes from posterior decompression at the L3 and W6ghzjbz. A 1.3 x 1.5 cm (AP by [...] facet arthropathy with moderatebilateral neural foraminal stenosisCHI Madera Community HospitalMR thoracic spine without IV cyotwtso1582-47-77 07:58:49MR LUMBAR SPINE WITHOUT IV CONTRAST, MR [...] Posterior ligament ossifications at the calcifications at Q78-Q24qqrnocp moderate spinal canal stenosisPosterior disc osteophyte at the T11-T12 level causing mild spinal canalstenosis The spinal cord is normal in caliber and signal intensity. There is no significant foraminal or spinal canal stenosis. 2.1 x 2.3 cm left adrenal nodule, incompletely characterized Paraspinal soft tissues are unremarkable. Lumbar spine: Postoperative changes from posterior decompression at the L3 and K9glxnvo. A 1.3 x 1.5 cm (AP by [...] facet arthropathy with moderatebilateral neural foraminal stenosisCHI Madera Community HospitalMR spine cervical without IV [id number] 07:58:49MR LUMBAR SPINE WITHOUT IV CONTRAST, MR [...] Posterior ligament ossifications at the calcifications at A94-A78zvrwnde moderate spinal canal stenosisPosterior disc osteophyte at the T11-T12 level causing mild spinal canalstenosis The spinal cord is normal in caliber and signal intensity. There is no significant foraminal or spinal canal stenosis. 2.1 x 2.3 cm left adrenal nodule, incompletely characterized Paraspinal soft tissues are unremarkable. Lumbar spine: Postoperative changes from posterior decompression at the L3 and S7hjjixy. A 1.3 x 1.5 cm (AP by [...] facet arthropathy with moderatebilateral neural foraminal stenosisCHI Madera Community HospitalMR CERVICAL SPINE WITHOUT IV [id number] 07:58:49 [facility] 1970 Sex: FMR [...] ligament ossifications at the calcifications at T10- O27xblbzhs moderate spinal canal stenosisPosterior disc osteophyte at the T11- T12 level causing mild spinal canalstenosisThe spinal cord is normal in caliber and signal intensity. There is no significant foraminal or spinal canal stenosis.2.1 x 2.3 cm left adrenal nodule, incompletely characterizedParaspinal soft tissues are unremarkable.Lumbar spine:Postoperative changes from posterior decompression at the L3 and F2izmink. A 1.3 x 1.5 cm (AP by [...] Signed By: Maxim Sultana09/04/2023 08:00 CDTWorkstation Name: [id number] THORACIC SPINE WITHOUT IV [id number] 07:58:49 [facility] : 1970 Sex: FMR [...] ligament ossifications at the calcifications at T10- P25poihhmn moderate spinal canal stenosisPosterior disc osteophyte at the T11- T12 level causing mild spinal canalstenosisThe spinal cord is normal in caliber and signal intensity. There is no significant foraminal or spinal canal stenosis.2.1 x 2.3 cm left adrenal nodule, incompletely characterizedParaspinal soft tissues are unremarkable.Lumbar spine:Postoperative changes from posterior decompression at the L3 and X0kipuid. A 1.3 x 1.5 cm (AP by [...] Signed By: Maxim Sultana09/04/2023 08:00 CDTWorkstation Name: [id number] LUMBAR SPINE WITHOUT IV [id number] 07:58:49 [facility] [place] : 1970 Sex: FMR LUMBAR SPINE WITHOUT [...] ligament ossifications at the calcifications at T10- J56bkgrlom moderate spinal canal stenosisPosterior disc osteophyte at the T11- T12 level causing mild spinal canalstenosisThe spinal cord is normal in caliber and signal intensity. There is no significant foraminal or spinal canal stenosis.2.1 x 2.3 cm left adrenal nodule, incompletely characterizedParaspinal soft tissues are unremarkable.Lumbar spine:Postoperative changes from posterior decompression at the L3 and D0axeayd. A 1.3 x 1.5 cm (AP by [...] Signed By: Maxim Sultana09/04/2023 08:00 CDTWorkstation Name: [id number] 07:46:14 * Test Item Value Reference Range Interpretation Comme nts FERRITIN (BEAKER) (test code = 361) 31.77 ng/mL 5.00-275.00 Manager Marketing Communications ID - hgIRON, TIBC, % SAT. (WITHOUT FERRITIN)2023-09-04 07:24:52* Test Item Value Reference Range Interpretation Comme nts IRON (BEAKER) (test code = 547) 22.0 ug/dL 40.0-160.0 L TOTAL IRON BINDING CAPACITY (BEAKER) (test code = 769) 369 ug/dL 250-450 IRON % SATURATION (2) (BEAKE R) (test code = 2590) 6 % 20-55 L Manager Marketing Communications ID - hgCT spine thoracic without IV vrsrntlz8092-35-23 05:42:45EXAM: CT THORACIC SPINE WITHOUT IV CONTRAST, [...] Bones/alignment: Age- indeterminate nondisplaced fracture of the K1llxeemccs elements, predominantly involving the lamina and pinusprocess.. [...] Postoperative changes in themidline posterior lumbar soft tissues.[facility] CenterCT spine lumbar without IV tsorayzu9378-12-77 05:42:45EXAM: CT THORACIC SPINE WITHOUT IV CONTRAST, [...] Bones/alignment: Age- indeterminate nondisplaced fracture of the D1znpztfurr elements, predominantly involving the lamina and pinusprocess.. [...] Postoperative changes in themidline posterior lumbar soft tissues.[facility] CenterCT LUMBAR SPINE WITHOUT IV WQKSPQGA8030-70-21 05:42:45[facility] : [...] spine:Bones/alignment: Age- indeterminate nondisplaced fracture of the L9smrxsmwsp elements, predominantly i nvolving the lamina and [...] Signed By: Suzan Weaver09/04/2023 05:45 CDTWorkstation Name: [id number] THORACIC SPINE WITHOUT IV [id number] 05:42:45 [facility] [...] spine:Bones/alignment: Age- indeterminate nondisplaced fracture of the W2hprbqtmov elements, predominantly i nvolving the lamina and [...] Signed By: Suzan Weaver09/04/2023 05:45 CDTWorkstation Name: [id number] 2023-09-04 04:44:34* Test Item Value Reference Range Interpretation Comme nts FIBRINOGEN LEVEL (BEAKER) (t est code = 658) 410 mg/dl 225-434 Urinalysis without Wetkcaggqeb6074-20-13 03:58:52* Test Item Value Reference Range Interpretation Comme nts Color, UA (test code = 5778-6) Light Yellow Clarity, UA (test code = 5767-9) Hazy Specific Milligan, UA (test code = 5811-5) 1.017 1.001-1.035 pH, UA (test code = 5803-2) 6 5.0-8.0 Protein, UA (test code = 22156-1) 10 mg/dL Negative A Glucose, UA (test code = 365) Negative Negative Ketones, UA (test code = 2514-8) Trace Negative A Bilirubin, UA (test code = 83804-3) Negative Negative Blood, UA (test code = 70349-6) Trace Negative A Nitrite, UA (test code = 5802-4) Negative Negative Leukocytes, UA (test code = 5799-2) Negative Negative Urobilinogen, UA (test code = 96763-5) 0.2 0.2-1.0 Specimen Source (test code = 2795) LYNDSAY (test code = LYNDSAY) Manager Marketing Communications ID - [auto]Manager Marketing Communications ID - tech Lab Interpretation (test code = 92252-4) Abnormal [facility]IN[facility] WITHOUT [id number] 03:58:52* Test Item Value Reference Range Interpretation [...] 0.2 0.2-1.0 SOURCE(BEAKER) (test code = 2795) Manager Marketing Communications ID - [auto]Manager Marketing Communications ID - techCBC W/PLT COUNT & AUTO [...] 2801) 0.70 % 0.00-1.00 Rapid drug screen, ryrck3676-80-42 02:20:15* Test Item Value Reference Range Interpretation Comme nts Barbiturate Screen (test code = 12210-3) Negative Negative Benzodiazepine Screen (test code = 41863-2) Negative Negative Cocaine (Metab.) Screen (test code = 3397-7) Positive Negative A Methadone Screen (test code = 76319-4) Negative Negative Opiate Screen (test code = 41714-0) Negative Negative Cannabinoid Screen (test code = 49818-7) Positive Negative A Amph/Methamph Screen (test code = 06647-2) Negative Negative Phencyclidine Screen (test code = 53601-6) Negative Negative pH, UA (test code = 5803-2) 6 5.0-8.0 LYNDSAY (test code = LYNDSAY) DRUG CUTOFF CONC.Cocaine 300 ng/mL Cannabinoid 50 ng/mLBenzodiazepine 200 ng/mLBarbiturate 200 ng/mLPhencyclidine 25 ng/mLOpiate 300 ng/mLMethadone 300 ng/mLAmphetamine/ 1000 ng/mL Methamphetamine This assay provides an unconfirmed qualitative test result for the clinical management of patients in emergency situations. Chain of custody not maintained. Some kypa-wyn-xssoxxq medications, as well as adulterants, may cause inaccurate results. Clinical correlation should be applied. A more comprehensive drug screen or confirmation of a detected drug may be performed upon request.Manager Marketing Communications ID - ADMIN Lab Interpretation (test code = 04089-7) Abnormal [facility] HospitalRAPID DRUG SCREEN, [id number] 02:20:15* Test Item Value Reference Range Interpretation [...] situations. Chain of custody not maintained. Some ptep-obp-snygzcy medications, as well as adulterants, may cause inaccurate results. Clinical correlation should be applied. A more comprehensive drug screen or confirmation of a detected drug may be performed upon request.Manager Marketing Communications ID - ADMINB-TYPE NATRIURETIC FACTOR (BNP)2023-09-04 02:11:53* Test Item Value Reference Range Interpretation Comme nts B-TYPE NATRIURETIC PEPTIDE (BEAKER) (test code = 700) 1761 pg/mL 0-100 H Manager Marketing Communications ID - ADMINLACTIC ACID, [id number] 02:10:37* Test Item Value Reference Range Interpretation Comme nts LACTATE BLOOD VENOUS (2) (BEAKER) (test code = 2872) 1.04 mmol/L 0.50-2.00 Specimen slightl y hemolyzed Manager Marketing Communications ID - [id number] 02:04:37* Test Item Value Reference Range Interpretation Comme nts PHOSPHORUS (BEAKER) (test code = 604) 4.2 mg/dL 2.3-4.7 Specimen sligh tly hemolyzed Manager Marketing Communications ID - ADMINCOMPREHENSIVE METABOLIC [id number] 02:04:37* Test Item Value Reference Range Interpretation [...] GFR is not applicable for dialysis patients Manager Marketing Communications ID - GIADSRSKTWFKCS3600-57-15 02:04:36* Test Item Value Reference Range Interpretation Comme nts MAGNESIUM (LATOYA) (test code = 627) 2.1 mg/dL 1.6-2.6 Specimen sligh tly hemolyzed Manager Marketing Communications ID - [id number]-[id number] 01:45:13* Test Item Value Reference Range Interpretation [...] code = 760) 28.5 seconds 22.5-36.0 PROTHROMBIN TIME/[id number] 01:42:15* Test Item Value Reference Range Interpretation Comme nts PROTIME (LATOYA) (test code = 759) 15.8 seconds 11.9-14.2 H INR (LATOYA) (test code = 370) 1.25 <=5.90 RECOMMENDED COUMADIN/WARFARIN INR THERAPY RANGESSTANDARD DOSE: 2.0 - 3.0 Includes: PROPHYLAXIS for venous thrombosis, systemic embolization; TREATMENT for venous thrombosis and/or pulmonary embolus.HIGH RISK: Target INR is 2.5-3.5 for patients with mechanical heart valves.HFI-ASOESJG6069-95-16 00:00:00Ordered by an unspecified provider.[facility] CenterLactic Acid Whole Blood 2023-08-12 20:51:22* Test Item Value Reference Range Interpretation Comme nts LACTIC ACID (test code = 1827006983) 1.56 mmol/L 0.50-2.20 Lab Interpretation (test cod e = 15661-3) [facility]BL[facility] [id number] 07:00:09* Test Item Value Reference Range Interpretation Comme nts CULTURE (BEAKER) (test code = 1095) No growth in 5 days T-SPOT(R).KY4807-76-24 18:35:00* Test Item Value Reference Range Interpretation Comme nts T-SPOT.TB (test code = 2212904) Negative SeeBelow Normal Value: Ne gativeA negative [...] CORRECTED FOR NEG CONTROL (test code = 5436724) 1 PANEL B SPOT COUNT CORRECTED FOR NEG CONTROL (test code = 8867649) 0 NEGATIVE CONTROL (test code = 4804446) Passed POSITIVE CONTROL (test code = 8715844) Passed LYNDSAY (test code = LYNDSAY) [id number] [facility] CenterT-SPOT(R).[id number] 18:35:00* Test Item Value Reference Range Interpretation Comme nts T-SPOT.TB (test code = 80300-3) Negative SeeBelow Normal Value: Ne gativeA negative [...] CORRECTED FOR NEG CONTROL (test code = 93870-9) 0 NEGATIVE CONTROL (test code = 64261-3) Passed POSITIVE CONTROL (test code = 72215-2) Passed LYNDSAY (test code = LYNDSAY) [id number] [facility] CenterTransesophageal [id number] 13:41:18 Transesophageal Echocardiography Report (CHETAN) Demographics Patient Name YUE ROMERO Date of Study 06/16/2023 [place] Gender Female Visit Number [id number] Race Room Number 1055 Number Date of 1970 Referring Physician Age 53 year(s) Management Professional Interpreting Physician Brian MDProcedure Type of Study [...] Tricuspid Valve Partially visualized. Pulmonic Valve Not visualized.[facility] CenterTransesophageal echo 2023-06-16 13:41:18Transesophageal Echocardiography Report (CHETAN) Demographics Patient Name YUE ROMERO Date of Study 06/16/2023 [place] Gender Female Visit Number [id number] Race Room Number 1055 Number Date of 1970 Referring Physician Age 53 year(s) Management Professional Interpreting Physician Brian MDProcedure Type of Study [...] Valve Partially visualized. Pulmonic Valve Not visualized.[facility] CenterMRSA ixmbqh6983-51-82 09:55:41* Test Item Value Reference Range Interpretation Comme nts Result (test code = 6463-4) No MRSA isolated [facility] CenterMRSA [id number] 09:55:41* Test Item Value Reference Range Interpretation Comme nts CULTURE (Zoomph) (test code = 1095) No MRSA isolated CRYPTOCOCCAL [id number] 15:50:36* Test Item Value Reference Range Interpretation Comme nts CRYPTOCOCCAL ANTIGEN, SERUM (Zoomph) (test code = 1828) Negative Negative, Interference SPUTUM CULTURE + GRAM [id number] 10:30:11* Test Item Value Reference Range Interpretation Comme nts CULTURE (Zoomph) (test code = 1095) PSEUDOMONAS AERUGINOSA A [...] GRAM STAIN RESULT (BEAKER) (test code = 336972) 10-15 epithelial cells GRAM STAIN RESULT (BEAKER) (test code = 599203) 2+ gram positive cocci in chains and pairs GRAM STAIN RESULT (BEAKER) (test code = 742472) 1+ gram negative rods GRAM STAIN RESULT (BEAKER) (test code = 044548) 1+ yeast 2+ Normal respiratory rebel presentVANCOMYCIN LEVEL, [id number] 06:41:26* Test Item Value Reference Range Interpretation Comme nts VANCOMYCIN TROUGH (BEAKER) ( test code = 522) 17.0 ug/mL 10.0-20.0 Manager Marketing Communications ID - ADMINECHO W CONTRAST & [id number] 13:44:03Transthoracic Echocardiography Report (TTE) Demographics Patient Name YUE ROMERO Date of Study 06/14/2023 [place] Gender Female Visit Number [id number] Race Room Number 1055 Number Date of 1970 Referring Aydee Go MD Physician Age 53 year(s) Management Professional James Albarran RDCS Interpreting Physician Brian MDProcedure [...] Velocity: 0.85 m/s Peak Gradient: 2.89 mmHgCHI Madera Community HospitalECHO W CONTRAST & [id number] 13:44:03Transthoracic Echocardiography Report (TTE) Demographics Patient Name YUE ROMERO Date of Study 06/14/2023 [place] Gender Female Visit Number [id number] Race Room Number 1055 Number Date of 1970 Referring Aydee Go MD Physician Age 53 year(s) Management Professional James Albarran RDCS Interpreting Physician Brian MDProcedure [...] Velocity: 0.85 m/s Peak Gradient: 2.89 mmHgCHI Madera Community HospitalHEMOGLOBIN A1C 2023-06-14 09:26:42* Test Item Value Reference Range Interpretation Comme nts HEMOGLOBIN A1C ELECTROPHORESIS (BEAKER) (test code = 3811) 6.7 % See_Comment H [Automated me ssage] The system which generated this result transmitted reference range: <=5.6%. The reference range was not used to interpret this result as normal/abnormal. "The A1c is measured using a [facility]-certified method. HbA1c value equal to or greater than 6.5% as the diagnosis cutoff for diabetes. An HbA1c value of 5.7- 6.4% indicates increased risk for diabetes (prediabetes)."Manager Marketing Communications ID - ADMOperator ID - ADMECG 12 [id number] 09:06:12Ventricular Rate 97 BPMAtrial Rate 97 BPMP-R Interval 146 msQRS Duration 96 msQ-T Interval 378 msQTC Calculation(Bazett) [address]P [place] 68 degreesR [place] 107 degreesT [place] 18 degrees Suspect arm leadreversal, interpretation assumes no reversalNormal sinus rhythmRightward axisNonspecific T wave abnormalityAbnormal ECGWhen compared with ECG of 30-MAR-2023 13:06,QRS axis Shifted rightConfirmed by Luis Lopez ([id number]) on 06/14/2023 9:06:07 [facility]EC 12 [id number] 09:06:12Ventricular Rate 97 BPMAtrial Rate 97 BPMP-R Interval 146 msQRS Duration 96 msQ-T Interval 378 msQTC Calculation(Bazett) 480 msP [place] 68 degreesR [place] 107 degreesT [place] 18 degrees Suspect arm leadreversal, interpretation assumes no reversalNormal sinus rhythmRightward axisNonspecific T wave abno rmalityAbnormal ECGWhen compared with ECG of 30-MAR-2023 13:06,QRS axis Shifted rightConfirmed by Luis Lopez ([id number]) on 06/14/2023 9:06:07 [facility] CenterBASIC METABOLIC [id number] 04:48:18* Test Item Value Reference Range Interpretation [...] GFR is not applicable for dialysis patients Manager Marketing Communications ID - ADMINCBC (HEMOGRAM ONLY)2023-06-14 04:22:50* Test [...] 413) 0 /100 WBC 0-0 Strep pneumoniae [id number] 23:34:41* Test Item Value Reference Range Interpretation Comme nts Strep pneumoniae Antigen (test code = 41361-3) Presumptive negative for pneumococcal pneumonia - see [...] the test. Lab Interpretation (test code = 43223-3) Normal [facility] HospitalTREP PNEUMONIAE [id number] 23:34:41* Test Item Value Reference Range Interpretation [...] detection limit of the test. Legionella antigen, [id number] 23:29:07* Test Item Value Reference Range Interpretation Comme nts Legionella Urine Antigen (test code = 75738-3) Negative - see comment Negative Negative for L. pneumophila serogroup 1 antigen, suggesting no recent or current infection with this serogroup. Legionellosis cannot be ruled out since other serogroups and species may cause disease. Lab Interpretation (test code = 94130-7) Normal [facility] CenterLEGIONELLA ANTIGEN, [id number] 23:29:07* Test Item Value Reference Range Interpretation Comme nts L. PNEUMOPHILA SEROGP 1 UR AG (BEAKER) (test code = 1156) Negative - see comment Negative Negative for L. pneumophila serogroup 1 antigen, suggesting no recent or current infection with this serogroup. Legionellosis cannot be ruled out since other serogroups and species may cause disease. Venous doppler arm, [id number] 20:05:32PV LAB - Upper Extremities Veins Demographics Patient Name YUE ROMERO Date of Study 06/13/2023 [place] Age 53 Visit Number [id number] Gender Female Accession Number [id number] Date ofBirth 1970 Referring Audrastalin Burgess Room Number 1055 Physician Management Professional Lisa Ruiz Interpreting John Solorio, Physician FellowProcedureType [...] in cm/s ; Diameters are measured in [facility] CenterVenous doppler arm, [id number] 20:05:32PV LAB - Upper Extremities Veins Demographics Patient Name YUE ROMERO Date of Study 06/13/2023 [place] Age 53 Visit Number [id number] Gender Female Accession Number [id number] Date of 1970 Referring Marianela Burgess Room Number 1055 Physician Management Professional Lisa Ruiz Interpreting John Solorio, Physician FellowProcedureType [...] in cm/s ; Diameters are measured in [facility] HospitalHIV-1 ANTIGEN WITH HIV-1/2 [id number] 18:36:40* Test Item Value Reference Range Interpretation Comme nts HIV-1 ANTIGEN WITH HIV 1\\T\\2 ANTIBODY (2) (LATOYA) (test code = 2586) Nonreactive Nonreactive MR lumbar spine without & with IV hqgmcncl5448-30-90 14:53:29MR LUMBAR SPINE WITH & WITHOUT IV [...] x 1.7x 1.7 cm. Dorsal paraspinal musculature R7ypffizljqvvlfh. Postcontrast imaging demonstrates mild peripheralenhancement of the dorsal paraspinal fluid collection. Left adrenalgland 2.9 cm nodule.[facility] CenterMR [facility] without & with IV yznunsud2001-62-13 14:53:29MR LUMBAR SPINE WITH & WITHOUT IV [...] x 1.7x 1.7 cm. Dorsal paraspinal musculature K7jggisfsbitlhou. Postcontrast imaging demonstrates mild peripheralenhancement of the dorsal paraspinal fluid collection. Left adrenalgland 2.9 cm nodule.[facility] CenterMR LUMBAR SPINE WITH & WITHOUT IV [id number] 14:53:29[facility] [...] 1.7 x 1.7 cm. Dorsal paraspinal musculature I3cvmfkjiahjhgjl. Postcontrast imaging demonstrates mild peripheralenhancement of the [...] or MRI abdomen imaging.Electronically Signed By: Ryan Buckley11/ 14:55 CDTWorkstation Name: [id number] KINASE (CK)2023-06-13 11:54:02* Test Item Value Reference Range Interpretation Comme nts CREATINE KINASE TOTAL (BEAKE R) (test code = 380) 43 U/L 29-200 Manager Marketing Communications ID - ADMINCOMPREHENSIVE METABOLIC [id number] 06:48:22* Test Item Value Reference Range Interpretation [...] GFR is not applicable for dialysis patients Manager Marketing Communications ID - ADMINPROTHROMBIN TIME/NTX4230-33-61 06:40:01* Test Item Value Reference Range Interpretation [...] code = 2801) 1.70 % 0.00-1.00 H PZBBBBYPF3724-88-55 05:26:09* Test Item Value Reference Range Interpretation Comme nts MAGNESIUM (BEAKER) (test cod e = 627) 2.0 mg/dL 1.6-2.6 Manager Marketing Communications ID - UXAXJBSQSDWLNXC2643-54-20 05:26:09* Test Item Value Reference Range Interpretation Comme nts PHOSPHORUS (BEAKER) (test co de = 604) 3.5 mg/dL 2.3-4.7 Manager Marketing Communications ID - ADMINBASIC METABOLIC [id number] 05:26:08* Test Item Value Reference Range Interpretation [...] GFR is not applicable for dialysis patients Manager Marketing Communications ID - ADMINCBC W/PLT COUNT & AUTO [id number] 05:11:15* Test Item Value Reference Range Interpretation [...] 0.70 % 0.00-1.00 XR spine lumbar 1 rzet5401-81-07 10:32:20XR SPINE LUMBAR 1 VIEW CLINICAL INDICATION: L3-4 L[facility]INECTOMY [facility] tnda4159-87-61 10:32:20XR SPINE LUMBAR 1 VIEW CLINICAL INDICATION: L3-4 LAMINECTOMY [facility] 2023-06-01 10:32:20 [facility] : 1970 Sex: FXR SPINE LUMBAR 1 VIEWCLINICAL INDICATION: L3-4 LAMINECTOMYCOMPARISON: NoneIMPRESSION:A single lateral view of the lumbar spine is obtained intraoperatively.The posterior approach surgical instrument is seen at the L3-L4 level,inferior to the L3 spinous process. Results were communicated to , who concurred with the above findings. Electronically Signed By: Maxim Stern/ 10:34 CDTWo rkstation Name: [id number] SPINE LUMBAR 1 CKZS0423-02-43 10:29:18 [facility] [...] Signed By: Maxim Ramos08/01/2022 10:31 CDTWorkstation Name: [id number] Screen, slfvg8760-94-62 05:32:52* Test Item Value Reference Range Interpretation Comme nts Preg Test, Ur (test code = 2112-1) Negative Negative Lab Interpretation (test cod e = 29924-0) Normal [facility] CenterPREGNANCY SCREEN, [id number] 05:32:52* Test Item Value Reference Range Interpretation Comme nts TEST URINE (BEAKER ) (test code = 583) Negative Negative BASIC METABOLIC [id number] 23:30:54* Test Item Value Reference Range Interpretation [...] GFR is not applicable for dialysis patients Manager Marketing Communications ID - ADMINPT/ZANX6842-85-91 23:15:33* Test Item Value Reference Range Interpretation [...] H CT neck soft tissue without IV swjpqhqb0402-06-27 13:45:22EXAM: CT NECK SOFT TISSUE WITHOUT IV [...] Postoperative changes from anterior cervical discectomy fusionat C3-Q3Mqsogwjn Lung Apices: NormalCHI Madera Community HospitalCT neck soft tissue without IV czmmhcmd1596-15-49 13:45:22EXAM: CT NECK SOFT TISSUE WITHOUT IV [...] Postoperative changes from anterior cervical discectomy fusionat C3-E3Hrhxfbhl Lung Apices: NormalCHI Madera Community HospitalCT NECK SOFT TISSUE WITHOUT IV [id number] 13:45:22 [facility] 1970 Sex: FEXAM: [...] Postoperative changes from anterior cervical discectomy fusionat C3-Z1Tourrbbk Lung Apices: NormalIMPRESSION:Exam limited by lack of intravenous contrast.1. 1.8 x 2.9 x 1.3 cm ill-defined fluid collection in the leftanterolateral neck soft tissues, suggesting evolving postoperativehemorrhage. Superimposed infection is not ex cluded.2. Retropharyngeal fluid and air measuring up to 0.8 cm in thickness,favored to be present postoperative right frontal edema. Superimposedinfection is not excluded.3. Postoperative changes from ACDF at C3- B9Numkltfebhdbql Signed By: Maxim Ramos07/31/2022 13:47 CDTWorkstation Name: [id number] METABOLIC BJXWH1251-94-41 08:13:13* Test Item Value Reference Range Interpretation [...] GFR is not applicable for dialysis patients Manager Marketing Communications ID - BVCBC W/PLT COUNT & AUTO GPXIZVDCAMJD7311-06-26 07:46:31* Test Item Value Reference Range Interpretation [...] 0.00-1.00 XR spine cervical 2 or 3 embcj1727-19-12 20:24:23TECHNIQUE: Frontal and lateral views of the cervical spine. INDICATION: Postop Standing Films. COMPARISON: None.[facility]XR spine cervical 2 or 3 zcthc6653-77-68 20:24:23TECHNIQUE: Frontal and lateral views of the cervical spine. INDICATION: Postop Standing Films. COMPARISON: None.[facility] CenterXR SPINE CERVICAL 2 OR 3 [id number] 20:24:23 [facility] [...] Signed By: Zachariah Garcia05/28/2023 20:26 CDTWorkstation Name: [id number] fluoro non-specific up to 1 hour 2023-05-28 11:45:16This is a non-reportable study with no Radiologist dictation. Please refer to your PACS to review images, or Doc Flowsheets for documentation on studies without images.[facility] CenterFL fluoro non-specific up to 1 afqv4217-69-15 11:45:16This is a non-reportable study with no Radiologist dictation. Please refer to your PACS to review images, or Doc Flowsheets for documentation on studies without images.[facility] CenterFL FLUORO NON-SPECIFIC UP TO 1 ZGKD3076-11-07 11:45:16 [facility] : 1970 Sex: FThis is a non- reportable study with no Radiologist dictation. Please refer to your PACS to review images, or Doc Flowsheets for documentation on studies without images.FL FLUORO NON-SPECIFIC UP TO 1 [id number] 10:13:02 [facility] : 1970 Sex: FTECHNIQUE: 1 lateral fluoroscopic image of the cervical spine forlocalization.Fluoroscopic time: 3second(s).FINDINGS:The surgical pointer is at C3-C4.The findings were discussed with Dr. Garcia in theOR who concurred withthe findings.IMPRESSION:Intraoperative localization plain film as described abo ve.Electronically Signed By: Derik Reyez05/28/2023 10:15 CDTWorkstation Name: [id number], QUANTITATIVE, IYJOAHAOV9876-46-21 08:21:03* Test Item Value Reference Range Interpretation Comme nts GONADOTROPIN, CHORIONIC (HCG ) QUANT (BEAKER) (test code = 649) < mIU/mL 0-10 Non- Females: <10 mIU/mL Females: Gestation Age Reference Range(mIU/mL) 0.2-1 Week 5-50 1-2 Weeks 50-500 2-3 Weeks 100-5,000 3-4 Weeks 500-10,000 4-5 Weeks 1,000-50,000 5-6 Weeks 10,000-100,000 6-8 Weeks 15,000- 200,000 2-3 Months 10,000-100,000 Manager Marketing Communications ID - ADMINCULTURE, PPEAX0802-02-25 09:28:30SPECIMEN NUMBER: [id number] CULTURE, URINE SPECIMEN NUMBER: [id number] SPECIMEN COMMENT: URINE SOURCE: URINE REPORT STATUS: FINAL FINAL REPORT: 05/15/2023 >100,000 CFU/ML UROGENITAL REBEL PRESENT NOCOMMON PATHOGENS UNLESS OTHERWISE INDICATED, ALL TESTING PERFORMED AT [facility] [address] [place] [address] OYSTER UNLOADER: JANNY STEINER M.D. CLIA NUMBER [id number] [place]. [id number], [id number] 12:02:50SPECIMEN NUMBER: [id number] CULTURE, URINE SPECIMEN NUMBER: [id number] SOURCE: URINE REPORT STATUS: FINAL FINAL REPORT: 05/13/2023 NO SPECIMEN RECEIVED FOR TESTING. CHARGES DELETED.BASIC METABOLIC [id number] 04:48:43* Test Item Value Reference Range Interpretation Comme nts GLUCOSE (test code = 2217) 117 MG/DL 70-99 H BUN (test code = 2208) 20 MG/DL 6-20 CREATININE (test code = 2214) 0.83 MG/DL 0.60-1.30 eGFR (2020 CKD-EPI) (test co de = 12106) 85 ML/MIN/1.73 >60 SODIUM (test code = [...] 12.7 SECONDS 12.5-14.7 INR (test code = 53251) 0.9 SEE BELOW CURRENT RECOMMENDATIONS ARE FOR AN INR OF 2.0-3.0 FOR ALL PATIENTS ON VITAMIN K ANTAGONISTS, EXCEPT THOSE WITH PROSTHETIC HEART VALVES, FOR WHOM INR OF 2.5-3.5 IS RECOMMENDED. UNLESS OTHERWISE INDICATED, ALL TESTING PERFORMED AT [facility] [address] [place] [address] OYSTER UNLOADER: JANNY STEINER M.D. CLIA NUMBER [id number] [facility] [place]. [id number] CBC W/AUTO DIFF WITH BMWFYCBJO8861-01-62 01:54:17* Test Item Value Reference Range Interpretation [...] = 1065) 0.0 /100 WBC'S See_Comment [Automated [employer] ge] The system which generated this result [...] H ABS NUCLEATED RBCS (test code = 81430) 0.00 K/UL 0.00-0.11 ECG 12 mzjq9995-07-62 14:02:48Ventricular Rate 102 BPMAtrial Rate 102 BPMP-R Interval 146 msQRS Duration 90 msQ-T Interval 372 msQTC Calculation(Bazett) 484 msP [place] 11 degreesR [place] -53 degreesT [place] 29 degrees Sinus tachycardiaPossible Left atrial enlargementLeft axis deviationPoor R wave progression Cannot rule out Anterior infarct , age undetermined vs lead misplacementNonspecific T wave abnormalityProlonged QTAbnormal ECGNo previous ECGs availableConfirmed by David GARCIA BASANT ([id number]) on 04/06/2023 2:02:46 [facility] & [id number] 13:11:39Transthoracic Echocardiography Report (TTE) Demographics Patient Name YUE ROMERO Date of Study 03/31/2023 [place] Gender Female Visit Number [id number] Race Room Number 2227 Number Date of 1970 Referring Physician Mariah Aldridge MD Age 53 year(s) Management Professional Wilmer Francois Programmer Analyst Josefina Corbett, [facility] [...] Velocity: 0.74 m/s Peak Gradient: 2.22 mmHgCHI Madera Community HospitalECHO W CONTRAST & [id number] 13:11:39 Transthoracic Echocardiography Report (TTE) Demographics Patient Name YUE ROMERO Date of Study 03/31/2023 [place] Gender Female Visit Number [id number] Race Room Number 2227 Number Date of 1970 Referring Physician Mariah Aldirdge MD Age 53year(s) Management Professional Wilmer Francois Programmer Analyst Josefina Corbett, AISHWARYA Interpreting Physician Melody MDProcedure [...] Gradient: 4.7 mmHg AV Area (continuity): 2.95 cm^2AV VTI: 25.77 cm AR P1/2t: 343.7 msec Deceleration Time: 1185.1 msec AV DVI: 0.78 LVOT Peak Velocity : 1.12 m/s Peak Gradient: 5.06 mmHg Mean Velocity: 0.74 m/s Mean Gradient: 2.54 mmHg LVOT Diameter: 2.19 cm LVOT VTI: 20.18 cm LVOT Area: 3.77 cm^2 LVOT SV:75.98 ml LVOT CO: 5.7 l/min LVOT CI: 2.97 l/min/m^2 Tricuspid Valve TR Velocity: 2.73 m/s TR Gradient: 29.86 mmHg Pulmonic Valve Peak Velocity: 0.74 m/s Peak Gradient: 2.22 mmHgCHI Madera Community HospitalXR chest 1 view portable / [id number] 15:39:07TECHNIQUE: Frontal view of the chest. INDICATION: CHf. COMPARISON: None. FINDINGS: LINES/TUBES: None. HEART AND MEDIASTINUM: Cardiomediastinal contour is within normallimits. LUNGS: The lungs are well inflated and clear. No consolidation orpulmonary edema. PLEURA: No pneumothorax. No significant pleural effusion. SOFT TISSUES AND BONES: Cervical spinal fixation hardware is noted.[facility]XR chest 1 view portable / clmljqx7991-73-45 15:39:07TECHNIQUE: Frontal view of the chest. INDICATION: CHf. COMPARISON: None. FINDINGS: LINES/TUBES: None. HEART AND MEDIASTINUM: Cardiomediastinal contour is within normallimits. LUNGS: The lungs are well inflated and clear. No consolidation orpulmonary edema. PLEURA: No pneumothorax. No significant pleural effusion. SOFT TISSUES AND BONES: Cervical spinal fixation hardware is noted.[facility] CenterXR CHEST 1 VIEW PORTABLE / [id number] 15:39:07 [facility] [...] By: Jose Carlos Lebron04/01/2023 15:41 CDTWorkstation Name: [id number] NATRIURETIC FACTOR (BNP)2023-04-01 14:15:07* Test Item Value Reference Range Interpretation Comme nts B-TYPE NATRIURETIC PEPTIDE ( LATOYA) (test code = 700) 192 pg/mL 0-100 H Manager Marketing Communications ID - ADMINMR spine cervical without IV mlyzfzae6277-33-38 11:30:35MRI cervical spine without contrast CLINICAL HISTORY: [...] and paraspinal soft tissues are within normal limits.[facility] CenterMR CERVICAL SPINE WITHOUT IV [id number] 11:30:35 [facility] [place] : 1970 Sex: FMRI cervical spine without [...] Signed By: Maxim Sultana03/31/2023 11:32 CDTWorkstation Name: [id number] METABOLIC [id number] 04:43:14* Test Item Value Reference Range Interpretation [...] GFR is not applicable for dialysis patients Manager Marketing Communications [facility] (HEMOGRAM ONLY)2023-03-31 04:20:07* Test [...] 0 /100 WBC 0-0 Arterial doppler legs mrbypnhwv7120-92-84 17:44:07PV LAB - Lower Extremity Arterial Duplex Demographics Patient Name YUE ROMERO Date of Study [place] Age 53 Visit Number [id number] Gender Female Accession Number [id number] of 1970 Referring Mariah Aldridge, Room Number 2227 Physician Management Professional Yovana Akins Interpreting John Solorio, Physician FellowProcedureType [...] + + + + + + !Prox BUSINESS UNIT DIRECTOR ! !32 ! !Biphasic ! !60.9 ! !Triphasic ! +- + + + + + + + + + !Mid BUSINESS UNIT DIRECTOR ! !25.9 ! !Biphasic ! !59.7 ! !Triphasic ! + + + + + + + + + + !Dist BUSINESS UNIT DIRECTOR ! !33.2 ! !Biphasic ! !37.4 ! [...] + + + + + + +[facility] HospitalArterial doppler legs koseozjmf0191-63-99 17:44:07PV LAB - Lower Extremity Arterial Duplex Demographics Patient Name YUE ROMERO Date of Study 03/30/2023 [place] Age 53 Visit Number [id number] Gender Female Accession Number [id number] Date of 1970 Referring Mariah Aldridge, Room Number 2225 Physician Management Professional Yovana Akins Interpreting John Solorio, Physician FellowProcedureType [...] + + + + + + !Prox BUSINESS UNIT DIRECTOR ! !32 ! !Biphasic ! !60.9 ! !Triphasic ! +-- + + + + + + + + + !Mid BUSINESS UNIT DIRECTOR ! !25.9 ! !Biphasic ! !59.7 ! !Triphasic ! + + + + + + + + + + !Dist BUSINESS UNIT DIRECTOR ! !33.2 ! !Biphasic ! !37.4 ! [...] + + + + + + +[facility] HospitalABI's Only(Ankle/Brachial Index)2023-03-30 17:13:47PV LAB - Lower Extremity Arterial Procedure Demographics Patient Name YUE ROMERO Date of Study 03/30/2023 [place] Age 53 Visit Number [id number] Gender Female Accession Number [id number] Date of 1970 Referring Mariah Jasen, Room Number 0547 Physician Management Professional Yovana Akins Interpreting John Solorio, Physician FellowProcedureType [...] in cm/s ; Diameters are measured in [facility]AB[facility](Ankle/Brachial Index)2023-03-30 17:13:47PV LAB - Lower Extremity Arterial Procedure Demographics Patient Name YUE ROMERO Date of Study 03/30/2023 [place] Age 53 Visit Number [id number] Gender Female Accession Number [id number] Date of 1970 Referring Mariah Aldridge, Room Number 2227 Physician Management Professional Yovana Akins Interpreting John Solorio, Physician FellowProcedureType [...] ; Diameters are measured in [facility] thoracic spine without IV uqrqyagw7413-49-53 12:50:50MR THORACIC SPINE WITHOUT IV CONTRAST INDICATION: [...] abnormality. T10-11 moderate right neural foraminal stenosis fooU34-29 moderate bilateral foraminal stenosis due to facet hypertrophyand ligamentum flavum redundancy. Thoracic vertebrae maintain normal height. Mild multilevel degenerativedisc changes. No evidence of acute osseous fracture or traumaticmalalignment. No paraspinal mass. Conus medullaris terminates at L1. Redundant cauda equina partiallyimaged and further reported on MRI lumbar spine.[facility] CenterMR THORACIC SPINE WITHOUT IV [id number] 12:50:50 [facility] : [...] abnormality. T10-11 moderate right neural foraminal stenosis kguL61-02 moderate bilateral foraminal stenosis due to facet [...] Signed By: Ryan Buckley03/30/2023 12:52 CDTWorkstation Name: [id number] spine lumbar without IV ubgkbtdj9916-90-76 12:33:57MR LUMBAR SPINE WITHOUT IV CONTRAST INDICATION: Unlisted Reason for ExamConcern for cord compression COMPARISON: None TECHNIQUE: Multiplanar, multisequence MR images of the lumbar spinewithout contrast. FINDINGS: For the purposes of this dictation, the 5 lowermost dspqvu-cwvrrhhmsehtk-svty vertebral bodies are labeled L1-L5.Alignment of the [...] with mild to moderatebilateral neural foraminal stenosisCHI Madera Community HospitalMR LUMBAR SPINE WITHOUT IV EOGDXZFP1349-12-46 12:33:57 [facility] : 1970 Sex: FMR LUMBAR SPINE WITHOUT IV CONTRASTINDICATION: Unlisted Reason for ExamConcern for cord compressionCOMPARISON: NoneTECHNIQUE: Multiplanar, multisequence MR images of the lumbar spinewithout contrast. FINDINGS: For the purposes of this dictation, the 5 lowermost ioqivw-kkwjxnepgfdzs-mqbj vertebral bodies are labeled L1- L5.Alignment of the lumbar spine is within normal limits. Vertebral body height is maintained. Bone marrow edema is seen at the inferior L3 and superior L4 vertebralbodies and bilateral L4 pedicles, favored to be degenerative in nature.Suggestion of a synovial cyst at the hlyxuD61-X80 level (series 301image eight).No spinal cord signal [...] flavum buckling versus synovial cyst at the iewucA59-I25 level (series 301image eight). MRI thoracic spine can beconsidered for further evaluation.7. Mild clumping of the cauda equina nerve roots, which is nonspecificbut may represent arachnoiditis. Postcontrast imaging can be consideredfor further evaluation.Electronically Signed By: Maxim Sultana03/30/2023 12:36 CDTWorkstation Name: [id number] [id number] 11:45:01* Test Item Value Reference Range Interpretation [...] 5.7- 6.4% indicates increased risk for diabetes (prediabetes)."Manager Marketing Communications ID - ADMEEG AWAKE AND YQAWZO1275-32-22 09:57:53Steph Martinez MD 03/30/2023 9:[address] Type: Inpatient, outpatient, EMUDATE(s) OF EE03/30/23DATE OF REPORT: 03/30/23MRN: [id number] of : 1970EE-1454Start time: 08:36Stop time: 09:23ICD-10: R56.9 CPT Code: 77257 (awake and asleep)HISTORY: 53 y/o female with [...] EEG recordings. Steph Elias MD, MPHNeurophysiology/Epilepsy AttendingCHI [facility] Hospital EEG AWAKE AND RZPRAH1802-49-68 09:57:53Steph Martinez MD 03/30/2023 9:59 AMELECTROENCEPHALOGRAM FOR [facility] EEG Type: Inpatient, outpatient, EMUDATE(s) OF EE03/30/23DATE OF REPORT: 03/30/23MRN: [id number] of : 1970EE-1454Start time: 08:36Stop time: 09:23ICD-10: R56.9 CPT Code: 14978 (awake and asleep)HISTORY: 53 y/o female with [...] EEG recordings. Steph Elias MD, MPHNeurophysiology/Epilepsy AttendingCH[facility] Hospital EEG AWAKE AND PGTCXK7554-41-30 09:57:53Steph Martinez MD 03/30/2023 9:[address] EEG Type: Inpatient, outpatient, EMUDATE(s) OF EE03/30/23DATE OF REPORT: 03/30/23MRN: [id number] of : 1970EE-1454Start time: 08:36Stop time: 09:23ICD-10: R56.9 CPT Code: 68255 (awake and asleep)HISTORY: 53 y/o female with [...] EEG recordings. Steph Elias MD, MPHNeurophysiology/Epilepsy AttendingCH[facility] Hospital EEG AWAKE AND XQQOPT3951-28-18 09:57:53Steph Martinez MD 03/30/2023 9:59 AMELECTROENCEPHALOGRAM FOR [facility] EEG Type: Inpatient, outpatient, EMUDATE(s) OF EE03/30/23DATE OF REPORT: 03/30/23MRN: [id number] of : 1970EE-1454Start time: 08:36Stop time: 09:ICD-10: R56.9 CPT Code: 63665 (awake and asleep)HISTORY: 53 y/o female with [...] EEG recordings. Steph Elias MD, MPHNeurophysiology/Epilepsy AttendingCH[facility] Hospital VALPROIC ACID LEVEL, [id number] 09:42:31* Test Item Value Reference Range Interpretation Comme nts VALPROIC ACID TOTAL (BEAKER) (test code = 924) 76 ug/mL 50-100 Therapeutic range for some clinical conditions may be >100 ug/mLUrinalysis w/Microscopic + Reflex to Yejywfu7933-00-84 08:43:51* Test Item Value Reference Range Interpretation Comme nts Color, UA (test code = 5778-6) Yellow Clarity, UA (test code = 5767-9) Clear Specific Milligan, UA (test code = 5811-5) 1.033 1.001-1.035 pH, UA (test code = 5803-2) 6.0 5.0-8.0 Protein, UA (test code = 48680-7) 30 mg/dL Negative A Glucose, UA (test code = 365) Negative Negative Ketones, UA (test code = 2514-8) Negative Negative Bilirubin, UA (test code = 99623-6) Negative Negative Blood, UA (test code = 66355-7) Small Negative A Nitrite, UA (test code = 5802-4) Negative Negative Leukocytes, UA (test code = 5799-2) Negative Negative Urobilinogen, UA (test code = 52892-6) 0.2 0.2-1.0 RBC, UA (test code = 25796-4) 51 See_Comment [Automated message] The system which [...] Occasional Squam Epithel, UA (test code = 22882-9) See_Comment [Automated message] The system which generated this result transmitted reference range: /HPF. The reference range was not used to interpret this result as normal/abnormal. Specimen Source (test code = 2795) LYNDSAY (test code = LYNDSAY) Manager Marketing Communications ID - [auto]Manager Marketing Communications ID - tech Lab Interpretation (test code = 65448-4) Abnormal [facility] HospitalURINALYSIS W/ REFLEX URINE DRUWMSR0528-05-43 08:43:51 * Test Item Value Reference Range [...] < /HPF SOURCE(BEAKER) (test code = 2795) Manager Marketing Communications ID - [auto]Manager Marketing Communications ID - techCOMPREHENSIVE METABOLIC SIXDN5454-13-82 04:37:29* Test Item Value Reference Range Interpretation [...] GFR is not applicable for dialysis patients Manager Marketing Communications ID - MATT BPT/CIRI7135-29-25 04:30:17* Test Item Value Reference Range Interpretation Comme nts PROTIME (BEAKER) (test code = 759) 13.8 seconds 11.9-14.2 INR (BEAKER) (test code = 370) 1.13 See_Comment [Automated brotips] The system which generated this result transmitted [...] code = 413) 0 /100 WBC 0-0 EXD-[id number] 00:00:00Ordered by an unspecified provider.[facility] HospitalMtdmzvSYYUZAODR3148-83-09 17:14:06* Test Item Value Reference Range Interpretation Comme nts MAGNESIUM (test code = 9458968516) 1.9 mg/dL 1.7-2.4 Lab Interpretation (test cod e = 87719-7) [facility] (91503)2022-12-11 15:16:25* Test Item Value Reference Range Interpretation Comme nts NA (test code = 0933183116) 139 mmol/L 135-145 K (test code = 9452310802) 3.5 mmol/L 3.5-5.0 CL (test code = 5569761062) 107 mmol/L 98-108 CO2 TOTAL (test code = 7705279055) 24 mmol/L 23-31 AGAP (test code = 7113334397) 8 2-16 BUN (test code = 2825106150) 9 mg/dL 7-23 GLUCOSE (test code = 3243270974) 129 mg/dL 70-110 H CREATININE (test code = 8286376265) 0.68 mg/dL 0.50-1.04 TOTAL BILI (test code = 5811970259) 0.5 mg/dL 0.1-1.1 CALCIUM (test code = 7979494032) 8.9 mg/dL 8.6-10.6 T PROTEIN (test code = 1226880000) 6.3 g/dL 6.3-8.2 ALBUMIN (test code = 6642663178) 3.8 g/dL 3.5-5.0 ALK PHOS (test code = 2272872529) 87 U/L 34-122 ALTv (test code = 1742-6) 24 U/L 5-35 AST(SGOT) (test code = 5541358415) 21 U/L 13-40 eGFR (test code = 7943888090) 91.6 mL/min/1.73m2 LYNDSAY (test code = LYNDSAY) [...] imaging tests). Lab Interpretation (test code = 64285-2) [facility] [id number] 15:10:45* Test Item Value Reference Range Interpretation Comme nts TROPONIN I (test code = 8085089923) 0.015 ng/mL <=0.034 LYNDSAY (test code = [...] of biotin. Lab Interpretation (test code = 96612-6) [facility] [id number] 15:07:48* Test Item Value Reference Range Interpretation Comme nts NT-proBNP (test code = 8972129149) 1460 pg/mL <=125 H LYNDSAY (test code = LYNDSAY) Biotin has been reported to cause a negative bias, interpret results relative to patient's use of biotin. Lab Interpretation (test code = 57604-2) [facility] CenterD-[id number] 14:45:24* Test Item Value Reference Range Interpretation Comments D-DIMER (test code = 1599813310) 0.99 See_Comment H [Automated message] The system [...] a diagnosis. Lab Interpretation (test code = 97339-2) Abnormal [facility] WITH [id number] 14:14:48* Test Item Value Reference Range Interpretation Comme nts WBC (test code = 6690-2) 7.86 See_Comment [Automated brotips] The system which generated this result transmitted reference range: 4.30 - 11.10 10*3/?L. The reference range was not used to interpret this result as normal/abnormal. RBC (test code = 789-8) 5.13 See_Comment [Automated brotips] The system which generated this result transmitted [...] g/dL 31.6-35.1 L RDW-SD (test code = 17180-9) 47.8 fL 39.0-49.9 RDW-CV (test code = 788-0) 16.9 % 12.0-15.5 H PLT (test code = 777-3) 507 See_Comment H [Automated messa ge] The system which generated this result transmitted reference range: 166 - 358 10*3/?L. The reference range was not used to interpret this result as normal/abnormal. MPV (test code = 89753-4) 8.2 fL 9.5-12.9 L NRBC/100 WBC (test code = 1643468196) 0.0 See_Comment [Automated me ssage] The system which generated this result transmitted reference range: 0.0 - 10.0 /100 WBCs. The reference range was not used to interpret this result as normal/abnormal. NRBC x10^3 (test code = 2523996453) See_Comment [Automated messa ge] The system which generated this result transmitted reference range: 10*3/?L. The reference range was not used to interpret this result as normal/abnormal. GRAN MAT (NEUT) % (test code = 770-8) 64.5 % IMM GRAN % (test code = 2656673289) 0.30 % LYMPH % (test code = 736-9) 25.6 % MONO % (test code = 5905-5) 7.5 % EOS % (test code = 713-8) 1.0 % BASO % (test code = 706-2) 1.1 % GRAN MAT x10^3(ANC) (test code = 2038613866) 5.07 10*3/uL 1.88-7.09 IMM GRAN x10^3 (test code = 8939946965) 0.00-0.06 LYMPH x10^3 (test code = 731-0) 2.01 10*3/uL 1.32-3.29 MONO x10^3 (test code = 742-7) 0.59 10*3/uL 0.33-0.92 EOS x10^3 (test code = 711-2) 0.08 10*3/uL 0.03-0.39 BASO x10^3 (test code = 704-7) 0.09 10*3/uL 0.01-0.07 H Lab Interpretation (test code = 53872-9) [facility]RPR[facility] 13:17:22* Test Item Value Reference Range Interpretation Comme nts RPR SCREEN (BEAKER) (test co de = 420) Nonreactive Nonreactive HEMOGLOBIN [id number] 10:39:49* Test Item Value Reference Range Interpretation Comme john HEMOGLOBIN A1C ELECTROPHORESIS (LATOYA) (test code = 3811) 5.8 % See_Comment H [Automated me ssage] The system which generated this result transmitted reference range: <=5.6%. The reference range was not used to interpret this result as normal/abnormal. "The A1c is measured using a [facility]-certified method. HbA1c value equal to or greater than 6.5% as the diagnosis cutoff for diabetes. An HbA1c value of 5.7- 6.4% indicates increased risk for diabetes (prediabetes)."[employer] ID - ADM VITAMIN [id number] 22:48:27* Test Item Value Reference Range Interpretation Comme nts VITAMIN B12 (LATOYA) (test c ode = 774) 227 pg/mL 213-816 [employer] ID - MARCOTSH/FREE T4 IF [id number] 22:08:28* Test Item Value Reference Range Interpretation Comme nts THYROID STIMULATING HORMONE (LATOYA) (test code = 772) 3.309 uIU/mL 0.350-4.940 [employer] ID - JSHIV-1 ANTIGEN WITH HIV-1/2 [id number] 22:08:28* Test Item Value Reference Range Interpretation Comme nts HIV-1 ANTIGEN WITH HIV 1\\T\\2 ANTIBODY (2) (LATOYA) (test code = 2586) Nonreactive Nonreactive [employer] ID - JSC-REACTIVE [id number] 21:49:44* Test Item Value Reference Range Interpretation Comme nts C-REACTIVE PROTEIN (LATOYA) (test code = 676) 0.35 mg/dL 0.00-0.50 [employer] ID - JSCOMPREHENSIVE METABOLIC [id number] 21:49:43* Test Item Value Reference Range Interpretation Comme nts TOTAL PROTEIN (LATOYA) (test code = 770) 7.1 gm/dL 6.0-8.3 ALBUMIN (LATOYA) (test code = 1145) 4.2 g/dL 3.5-5.0 ALKALINE PHOSPHATASE (LATOYA) (test code = 346) 74 U/L 40-150 BILIRUBIN TOTAL (LATOYA) (test code = 377) 0.3 mg/dL 0.2-1.2 [...] GFR is not applicable for dialysis patients [employer] ID - JSLIPID [id number] 21:49:43* Test Item Value Reference Range Interpretation [...] Borderline 130-159 High 160-189 Very High >=190 [employer] ID - JSCBC W/PLT COUNT & AUTO [id number] 21:34:03* Test Item Value Reference Range Interpretation [...] Interpretation Comme nts Height (test code = 3921846729) in Weight (test code = 8087002820) lbs Systolic BP (test code = 5951984724) mmHg Diastolic BP (test code = 4875374753) mmHg Heart Rate (test code = 0953052292) bpm BSA (test code = 4269178126) 2.00 m2 Ao root diam (test code = 6139123399) 3.20 cm Aortic root (test code = 4332239515) 3.2 cm Ao root annulus (test code = 4469855300) 3.2 cm LVOT diameter (test code = 1232972250) 1.99 cm LVOT area (test code = 8415221275) 3.10 cm2 LVIDD (test code = 4352935592) 5.10 cm Left Ventricular End Diastolic Volume by Teichholz Method (test code = 6432405) 123.0 mL IVS (test code = 7105163618) 1.34 cm Interventricular Septum Diastolic Thickness by 2D (test code = 3619519) 1.34 cm LVPWD (test code = 2135211052) 1.34 cm PW (test code = 2176323833) 1.34 cm 0.6-1.1 EF(Teich) (test code = 7442312412) 41.80 % LVIDS (test code = 7559577326) 4.00 cm Left Ventricular End Systolic Volume by Teichholz Method (test code = 3768733) 71.5 mL FS (test code = 9489665901) 21 % EF - 2D (test code = 63643614) 41.80 % LA size (test code = 1258583875) 4.6 cm Pulmonic Regurgitant End Max Velocity (test code = 8750545336) 119.4 cm/s LAV(MOD-sp4) (test code = 2871050439) 95.00 mL E wave decelartion time (test code = 1823357109) 0.15 s MV stenosis pressure 1/2 time (test code = 5437635249) 45.6 ms MV Peak A Evette (test code = 9805680281) 123.8 cm/s MV Peak E Evette (test code = 0003577419) 109.7 cm/s E/A ratio (test code = 6465640920) ratio MR max PG (test code = 4271523690) 87.20 mm[Hg] MR max evette (test code = 5001288293) 466.90 cm/s Mr max evette (test code = 8060709119) 466.9 m/s MV Prop V (test code = 6071323531) 51.00 cm/s MV E/e' septal (test code = 5595032008) 8.1 cm/s Tapse (test code = 6289908843) 2.21 cm LVOT stroke volume (test code = 4613021886) 49.80 cm3 LVOT peak evette (test code = 4089362551) 89.1 cm/s LVOT mn grad (test code = 3485402213) mmHg AV LVOT peak gradient (test code = 7258794044) mmHg LVOT peak VTI (test code = 6445839234) 16.0 cm LV V1 mean (test code = 5223913298) 64.30 cm/s Aortic valve mean velocity (test code = 1048740098) 133.8 cm/s Ao peak evette (test code = 0791054492) 175.3 cm/s Ao VTI (test code = 7480294978) 32.2 cm AV area by cont VTI (test code = 7849669018) 1.6 cm2 AV area peak evette (test code = 5477909582) 1.6 cm2 Ao max PG (test code = 1090512736) 12.30 mm[Hg] AV peak gradient (test code = 7941830409) mmHg AV valve area (test code = 9072844387) 1.55 cm2 AV mean gradient (test code = 2862315190) mmHg AV regurgitation pressure 1/2 time (test code = 0266634698) 358.5 ms AI dec slope (test code = 4835900073) 364.20 cm/s2 AI max evette (test code = 6958394091) 445.80 cm/s AI max PG (test code = 3870687430) 79.50 mm[Hg] Radiology Study observation (narrative) (test code = 08039-2) LYNDSAY (test code = LYNDSAY) ?Left?Ventricle: Left [...] agent used. [facility] 10:43:32* Test Item Value Reference Range Interpretation Comme [facility] POCT GLU (test code = 0207334946) 148 mg/dL 70-110 H Lab Interpretation (test cod e = 74519-8) [facility]normal [facility] CenterACTIVATED PARTIAL THRMPLAS [id number] 18:39:45* Test Item Value Reference Range Interpretation Comme [facility] APTT Patient (test code = 3173-2) See_Comment [Automated message] The system which generated this result transmitted reference range: 23 - 38 Seconds. The reference range was not used to interpret this result as normal/abnormal. LYNDSAY (test code = LYNDSAY) The [facility] patient population mean normal value for aPTT is 30 seconds. Lab Interpretation (test code = 27942-3) Normal [facility] CenterPROTHROMBIN TIME / [id number] 18:37:42* Test Item Value Reference Range Interpretation [...] the indications. Lab Interpretation (test code = 17604-1) [facility]TR[facility] [id number] 18:32:01* Test Item Value Reference Range Interpretation Comments TROPONIN I (test code = 3446191812) 0.019 ng/mL See_Comment [Automated message] The system [...] of biotin. Lab Interpretation (test code = 24734-2) Normal [facility]AL [id number] 18:29:01* Test Item Value Reference Range Interpretation Comme [facility] NT-proBNP (test code = 6141393508) 2770 pg/mL See_Comment H [Automated message] The system which generated this result transmitted reference range: <=125. The reference range was not used to interpret this result as normal/abnormal. LYNDSAY (test code = LYNDSAY) Biotin has been reported to cause a negative bias, interpret results relative to patient's use of biotin. Lab Interpretation (test code = 50147-2) Abnormal [facility]. METABOLIC PANEL (79963)2022-07-31 18:21:42* Test Item Value Reference Range Interpretation Comme nts NA (test code = 5350662537) 136 mmol/L 135-145 K (test code = 8373334089) 4.6 mmol/L 3.5-5.0 CL (test code = 5530966349) 104 mmol/L 98-108 CO2 TOTAL (test code = 9369298487) 26 mmol/L 23-31 AGAP (test code = 7257765532) 2-16 BUN (test code = 5347467782) 9 mg/dL 7-23 GLUCOSE (test code = 3862891720) 97 mg/dL 70-110 CREATININE (test code = 6579434119) 0.64 mg/dL 0.50-1.04 TOTAL BILI (test code = 0331727775) 0.5 mg/dL 0.1-1.1 CALCIUM (test code = 8373370579) 8.2 mg/dL 8.6-10.6 L T PROTEIN (test code = 7748307967) 6.5 g/dL 6.3-8.2 ALBUMIN (test code = 3708536392) 3.9 g/dL 3.5-5.0 ALK PHOS (test code = 0541106745) 93 U/L 34-122 ALTv (test code = 1742-6) 18 U/L 5-35 AST(SGOT) (test code = 6372087701) 19 U/L 13-40 eGFR (test code = 9306447076) mL/min/1.73m2 LYNDSAY (test code = LYNDSAY) Association [...] imaging tests). Lab Interpretation (test code = 74669-5) [facility] CenterLIPASE2023-[facility] 18:21:01* Test Item Value Reference Range Interpretation Comme nts LIPASE (test code = 6960063056) 54 U/L 0-220 Lab Interpretation (test cod e = 52205-2) Normal [facility] WITH [id number] 18:07:00* Test Item Value Reference Range Interpretation Comme nts WBC (test code = 6690-2) See_Comment [Automated brotips] The system which generated this result transmitted reference range: 4.30 - 11.10 10*3/?L. The reference range was not used to interpret this result as normal/abnormal. RBC (test code = 789-8) See_Comment [Automated brotips] The system which generated this result transmitted [...] g/dL 31.6-35.1 L RDW-SD (test code = 94922-6) 53.1 fL 39.0-49.9 H RDW-CV (test code = 788-0) 17.0 % 12.0-15.5 H PLT (test code = 777-3) See_Comment H [Automated messa ge] The system which generated this result transmitted reference range: 166 - 358 10*3/?L. The reference range was not used to interpret this result as normal/abnormal. MPV (test code = 50657-1) 8.2 fL 9.5-12.9 L NRBC/100 WBC (test code = 4624239674) See_Comment [Automated WebMD ssage] The system which generated this result transmitted reference range: 0.0 - 10.0 /100 WBCs. The reference range was not used to interpret this result as normal/abnormal. NRBC x10^3 (test code = 1433991546) See_Comment [Automated messa ge] The system which generated this result transmitted reference range: 10*3/?L. The reference range was not used to interpret this result as normal/abnormal. GRAN MAT (NEUT) % (test code = 770-8) 64.0 % IMM GRAN % (test code = 6423065818) 0.40 % LYMPH % (test code = 736-9) 27.3 % MONO % (test code = 5905-5) 6.5 % EOS % (test code = 713-8) 1.1 % BASO % (test code = 706-2) 0.7 % GRAN MAT x10^3(ANC) (test code = 1435513731) 5.46 10*3/uL 1.88-7.09 IMM GRAN x10^3 (test code = 4457708784) 0.03 10*3/uL 0.00-0.06 LYMPH x10^3 (test code = 731-0) 2.32 10*3/uL 1.32-3.29 MONO x10^3 (test code = 742-7) 0.55 10*3/uL 0.33-0.92 EOS x10^3 (test code = 711-2) 0.09 10*3/uL 0.03-0.39 BASO x10^3 (test code = 704-7) 0.06 10*3/uL 0.01-0.07 Lab Interpretation (test code = 45258-5) Abnormal [facility] METABOLIC PANEL (NA, K, CL, CO2, GLUCOSE, BUN, CREATININE, CA)2022-05-08 06:37:01* Test Item Value Reference Range Interpretation Comme nts NA (test code = 6062755498) 137 mmol/L 135-145 K (test code = 8534091584) 3.8 mmol/L 3.5-5 CL (test code = 4253582640) 103 mmol/L 98-108 CO2 TOTAL (test code = 9636034822) 24 mmol/L 23-31 AGAP (test code = 3063156399) 2-16 BUN (test code = 3862117084) 13 mg/dL 7-23 GLUCOSE (test code = 2803663461) 90 mg/dL 70-110 CREATININE (test code = 0951608849) 0.69 mg/dL 0.5-1.04 CALCIUM (test code = 5268668867) 8.5 mg/dL 8.6-10.6 L eGFR (test code = 4354308029) mL/min/1.73m2 LYNDSAY (test code = LYNDSAY) Association [...] imaging tests). Lab Interpretation (test code = 81636-9) [facility]MAGNESIUM20[facility] 06:37:01* Test Item Value Reference Range Interpretation Comme nts MAGNESIUM (test code = 1660518911) 2.1 mg/dL 1.7-2.4 Lab Interpretation (test cod e = 60250-5) Normal [facility] CenterPHOSPHORUS2022-10-20 06:37:01* Test Item Value Reference Range Interpretation Comme nts PHOSPHORUS (test code = 3032410214) 4.7 mg/dL 2.5-5 Lab Interpretation (test cod e = 24116-7) Normal [facility] CenterCB WITH [id number] 06:11:54* Test Item Value Reference Range Interpretation Comme nts WBC (test code = 6690-2) See_Comment [Automated [employer] The system which generated this result transmitted reference range: 4.30 - 11.10 10*3/?L. The reference range was not used to interpret this result as normal/abnormal. RBC (test code = 789-8) See_Comment [Automated [employer] [facility] [employer] The system which generated this result transmitted [...] 32.4 g/dL 31.6-35.1 RDW-SD (test code = 98841-2) 51.0 fL 39-49.9 H RDW-CV (test code = 788-0) 16.5 % 12-15.5 H PLT (test code = 777-3) See_Comment H [Automated messa ge] The system which generated this result transmitted reference range: 166 - 358 10*3/?L. The reference range was not used to interpret this result as normal/abnormal. MPV (test code = 02515-7) 8.3 fL 9.5-12.9 L NRBC/100 WBC (test code = 0032564457) See_Comment [Automated WebMD ssage] The system which generated this result transmitted reference range: 0.0 - 10.0 /100 WBCs. The reference range was not used to interpret this result as normal/abnormal. NRBC x10^3 (test code = 7014097543) See_Comment [Automated messa ge] The system which generated this result transmitted reference range: 10*3/?L. The reference range was not used to interpret this result as normal/abnormal. GRAN MAT (NEUT) % (test code = 770-8) 64.5 % IMM GRAN % (test code = 9966576479) 0.50 % LYMPH % (test code = 736-9) 27.1 % MONO % (test code = 5905-5) 6.6 % EOS % (test code = 713-8) 0.6 % BASO % (test code = 706-2) 0.7 % GRAN MAT x10^3(ANC) (test code = 3022738581) 5.28 10*3/uL 1.88-7.09 IMM GRAN x10^3 (test code = 5204164941) 0.04 10*3/uL 0-0.06 LYMPH x10^3 (test code = 731-0) 2.22 10*3/uL 1.32-3.29 MONO x10^3 (test code = 742-7) 0.54 10*3/uL 0.33-0.92 EOS x10^3 (test code = 711-2) 0.05 10*3/uL 0.03-0.39 BASO x10^3 (test code = 704-7) 0.06 10*3/uL 0.01-0.07 Lab Interpretation (test code = 02619-8) [facility]-07 01:18:10* Test Item Value Reference Range Interpretation Comme nts POCT GLU (test code = 6684413468) 120 mg/dL 70-110 H Lab Interpretation (test cod e = 58765-7) [facility]normal [facility] CenterType and Screen - ONCE [id number] 05:46:35* Test Item Value Reference Range Interpretation Comme nts ABO & RH (test code = 20) O POSITIVE Performed at [facility] Laboratory [facility] Blood [address] Free: [phone] No. [id number] IAT (test code = 1185) Negative Performed at [facility] Laboratory [facility] Blood [address] Free: [phone] No. [id number] [facility]BAS[facility]OL[facility] PAN[facility] (NA, K, CL, CO2, GLUCOSE, BUN, CREATININE, CA)2022-05-05 08:22:57* Test Item Value Reference Range Interpretation Comme nts NA (test code = 5426318675) 136 mmol/L 135-145 K (test code = 0931045906) 4.9 mmol/L 3.5-5 CL (test code = 5309097742) 108 mmol/L 98-108 CO2 TOTAL (test code = 4113618641) 22 mmol/L 23-31 L AGAP (test code = 5682725307) 2-16 BUN (test code = 8739997819) 12 mg/dL 7-23 GLUCOSE (test code = 6081769445) 155 mg/dL 70-110 H CREATININE (test code = 9121463328) 0.63 mg/dL 0.5-1.04 CALCIUM (test code = 6973343205) 8.4 mg/dL 8.6-10.6 L eGFR (test code = 9728061043) mL/min/1.73m2 LYNDSAY (test code = LYNDSAY) Association [...] imaging tests). Lab Interpretation (test code = 71093-8) [facility]normal [facility] CenterPROTHROMBIN TIME / [id number] 08:22:37* Test Item Value Reference Range Interpretation [facility] PROTIME PATIENT (test code = 5964-2) See_Comment [Automated brotips] The system which generated this result transmitted reference range: 10.1 - 12.6 Seconds. The reference range was not used to interpret this result as normal/abnormal. INR (test code = 6301-6) Normal INR <1.1; Warfarin Therapeutic range 2.0 to 3.0 or 2.5 to 3.5, depending upon the indications. Lab Interpretation (test code = 18429-2) Normal [facility]eraPTT20[facility] 08:22:37* Test Item Value Reference Range Interpretation [facility] APTT Patient (test code = 3173-2) See_Comment [Automated messa ge] The system which generated this result transmitted reference range: 26 - 36 Seconds. The reference range was not used to interpret this result as normal/abnormal. Lab Interpretation (test code = 59573-0) Normal [facility] CenterFIBRINOGEN2022-10-17 08:22:37* Test Item Value Reference Range Interpretation Comme nts Fibrinogen (test code = 1440547771) 294 mg/dL 167-453 Lab Interpretation (test cod e = 53575-4) Normal [facility]CB WITH [id number] 08:15:01* Test Item Value Reference Range Interpretation [...] g/dL 31.6-35.1 L RDW-SD (test code = 41175-8) 52.9 fL 39-49.9 H RDW-CV (test code = 788-0) 16.8 % 12-15.5 H PLT (test code = 777-3) See_Comment H [Automated messa ge] The system which generated this result transmitted reference range: 166 - 358 10*3/?L. The reference range was not used to interpret this result as normal/abnormal. MPV (test code = 20896-0) 8.3 fL 9.5-12.9 L NRBC/100 WBC (test code = 0061375913) See_Comment [Automated me ssage] The system which generated this result transmitted reference range: 0.0 - 10.0 /100 WBCs. The reference range was not used to interpret this result as normal/abnormal. NRBC x10^3 (test code = 2040554670) See_Comment [Automated messa ge] The system which generated this result transmitted reference range: 10*3/?L. The reference range was not used to interpret this result as normal/abnormal. GRAN MAT (NEUT) % (test code = 770-8) 86.4 % IMM GRAN % (test code = 5135576147) 0.40 % LYMPH % (test code = 736-9) 11.7 % MONO % (test code = 5905-5) 1.1 % EOS % (test code = 713-8) 0.0 % BASO % (test code = 706-2) 0.4 % GRAN MAT x10^3(ANC) (test code = 4542842769) 6.36 10*3/uL 1.88-7.09 IMM GRAN x10^3 (test code = 5805921245) 0.03 10*3/uL 0-0.06 LYMPH x10^3 (test code = 731-0) 0.86 10*3/uL 1.32-3.29 L MONO x10^3 (test code = 742-7) 0.08 10*3/uL 0.33-0.92 L EOS x10^3 (test code = 711-2) 0.03-0.39 L BASO x10^3 (test code = 704-7) 0.03 10*3/uL 0.01-0.07 Lab Interpretation (test code = 27624-4) [facility]normal [facility] CenterVITAMIN D, [id number] 20:14:03* Test Item Value Reference Range Interpretation Comme nts VIT D 25OH (test code = 89762-5) 22 ng/mL 25-80 L LYNDSAY (test code = LYNDSAY) Deficiency: <20 ng/mLInsufficiency: 20-24 ng/mLOptimal: 25-80 ng/mL Lab Interpretation (test code = 48313-6) [facility]normal [facility] CenterBASI METABOLIC PANEL (NA, K, CL, CO2, GLUCOSE, BUN, CREATININE, CA)2022-04-15 11:27:57* Test Item Value Reference Range Interpretation Comme nts NA (test code = 9180201043) 138 mmol/L 135-145 K (test code = 9037268535) 3.9 mmol/L 3.5-5 CL (test code = 4465783905) 106 mmol/L 98-108 CO2 TOTAL (test code = 7290908723) 23 mmol/L 23-31 AGAP (test code = 8548157159) 2-16 BUN (test code = 1698048164) 10 mg/dL 7-23 GLUCOSE (test code = 1812647395) 91 mg/dL 70-110 CREATININE (test code = 9796719799) 0.65 mg/dL 0.5-1.04 CALCIUM (test code = 5055627085) 8.1 mg/dL 8.6-10.6 L eGFR (test code = 1583509241) mL/min/1.73m2 LYNDSAY (test code = LYNDSAY) Association [...] imaging tests). Lab Interpretation (test code = 01182-9) [facility]normal [facility] CenterSTROKE Protocol - Transthoracic echo (TTE) 2022-04-14 22:07:33* Test Item Value Reference Range Interpretation Comme nts Height (test code = 9907644023) in Weight (test code = 4848226595) lbs Systolic BP (test code = 8107114038) mmHg Diastolic BP (test code = 8460166440) mmHg Heart Rate (test code = 6185601197) bpm BSA (test code = 7999370026) 1.94 m2 TASV (test code = 1437578470) 15.5 cm/s LVIDD (test code = 2235255820) 6.00 cm Left Ventricular End Diastolic Volume by Teichholz Method (test code = 2766202) 183.0 mL IVS (test code = 2268754228) 1.09 cm Interventricular Septum Diastolic Thickness by 2D (test code = 4404544) 1.09 cm LVPWD (test code = 3006308860) 0.94 cm PW (test code = 2596869080) 0.94 cm 0.6-1.1 EF(Teich) (test code = 1375056064) 40.30 % LVIDS (test code = 6112220209) 4.80 cm Left Ventricular End Systolic Volume by Teichholz Method (test code = 1259280) 109.2 mL FS (test code = 6796378353) 20 % EF - 2D (test code = 51158605) 40.30 % LVOT diameter (test code = 4264812503) 2.05 cm LVOT area (test code = 3917893547) 3.30 cm2 Ao root diam (test code = 9757283198) 3.10 cm Aortic root (test code = 1911425319) 3.1 cm Ao root annulus (test code = 0724111197) 3.1 cm LA size (test code = 5406539615) 4.2 cm LAV(MOD-sp4) (test code = 4136792661) 64.90 mL MV Peak A Evette (test code = 9197650456) 115.7 cm/s E wave decelartion time (test code = 6775492321) 0.15 s MV Peak E Evette (test code = 2127415091) 106.2 cm/s E/A ratio (test code = 3848111355) ratio LVOT stroke volume (test code = 7990380500) 48.30 cm3 LVOT peak evette (test code = 5449337446) 78.4 cm/s LVOT mn grad (test code = 3150602995) mmHg AV LVOT peak gradient (test code = 3036915928) mmHg LVOT peak VTI (test code = 8955651319) 14.7 cm LV V1 mean (test code = 6382119283) 51.40 cm/s Ao peak evette (test code = 6206857021) 154.7 cm/s AV area peak evette (test code = 0139828809) 1.7 cm2 Ao max PG (test code = 5386938803) 9.60 mm[Hg] AV peak gradient (test code = 1910272226) mmHg AV regurgitation pressure 1/2 time (test code = 8786844801) 257.3 ms AI dec slope (test code = 1676249445) 498.10 cm/s2 AI max evette (test code = 7599559794) 437.60 cm/s AI max PG (test code = 8190492228) 77.80 mm[Hg] Tapse (test code = 7056026417) 2.19 cm LA Volume Index (BP) (test code = 7502965967) 32.0 mL/m2 LA volume (BP) (test code = 9230625605) 62.1 mL LAV(MOD-sp2) (test code = 1065165874) 52.70 mL A4C EF (test code = 6949956315) 44.80 % EF(sp4-el) (test code = 1390857819) 45.20 % SV(MOD-sp4) (test code = 8730102422) 71.20 mL SV(sp4-el) (test code = 1209132252) 73.90 mL LV Diastolic Volume (BP) (test code = 7757289282) 146.3 mL A2C EF (test code = 9560685218) 52.00 % EF(MOD-bp) (test code = 6644351957) 46.70 % EF(sp2-el) (test code = 5191619373) 52.40 % LV Systolic Volume (BP) (test code = 6495031723) 77.9 mL SV(MOD-bp) (test code = 9192922391) 68.40 mL SV(MOD-sp2) (test code = 4344923797) 69.20 mL EF (test code = 1025526563) Left Ventricular Stroke Volume by 2-D Biplane-MOD (test code = 8495124) 68.4 mL Radiology Study observation (narrative) (test code = 45994-1) LYNDSAY (test code = LYNDSAY) ?Left?Ventricle: Left [...] Doppler and spectral Doppler. 5 mL of Hivelocityason ultrasound enhancing agent used and saline contrast was performed. [facility]AM[facility] 16:48:36* Test Item Value Reference Range Interpretation Comme nts KEPPRA (test code = 1351340426) 12-46 L LYNDSAY (test code = LYNDSAY) Therapeutic range: 12-46 ?g/mL ? ?Toxic: Not well established.Test developed and characteristics determined by [facility] Laboratory Services. Lab Interpretation (test code = 64354-8) Abnormal [facility] (Na, K, Cl, CO2, Glucose, BUN, Creatinine, Ca)2022-04-14 10:50:11* Test Item Value Reference Range Interpretation Comme [facility] NA (test code = 4631954216) 136 mmol/L 135-145 K (test code = 8525587216) 3.8 mmol/L 3.5-5 CL (test code = 4504081833) 105 mmol/L 98-108 CO2 TOTAL (test code = 1438246253) 25 mmol/L 23-31 AGAP (test code = 1568182008) 2-16 BUN (test code = 0412926202) 9 mg/dL 7-23 GLUCOSE (test code = 4521032421) 101 mg/dL 70-110 CREATININE (test code = 0811266396) 0.66 mg/dL 0.5-1.04 CALCIUM (test code = 0858907701) 8.1 mg/dL 8.6-10.6 L eGFR (test code = 9529866641) mL/min/1.73m2 LYNDSAY (test code = LYNDSAY) Association [...] imaging tests). Lab Interpretation (test code = 92254-5) Abnormal [facility] CenterMagensium, [id number] 10:50:11* Test Item Value Reference Range Interpretation Comme nts MAGNESIUM (test code = 7655937443) 1.9 mg/dL 1.7-2.4 Lab Interpretation (test cod e = 16634-4) Normal [facility] CenterThyroid Stimulating [id number] 22:21:44 * Test Item Value Reference Range Interpretation Comme nts TSH (test code = 2316536871) See_Comment Biotin has been reported to cause a negative bias, interpret results relative to patient's use of biotin. [Automated message] The system which generated this result transmitted reference range: 0.45 - 4.70 mIU/L. The reference range was not used to interpret this result as normal/abnormal. Lab Interpretation (test code = 25278-3) Normal [facility] CenterGLYCOSYLATED HEMOGLOBIN (A1C)2022-04-13 21:53:43* Test Item Value Reference Range Interpretation Comme nts HGB A1C (test code = 4548-4) 5.8 % 4-5.7 H LYNDSAY (test code = LYNDSAY) Reference RangesNormal: <5.7%Prediabetes: 5.7 - 6.4%Diabetes: > 6.5% Lab Interpretation (test code = 02194-1) Abnormal [facility] CenterFASTING LIPID PANEL (01009)(TOTAL CHOLESTEROL, TRIGLYCERIDES, HDL)2022-04-13 21:34:53* Test Item Value Reference Range Interpretation Comme nts CHOL (test code = 2276466403) 201 mg/dL 120-200 H HDL (test code = 1975420802) 56 mg/dL See_Comment [Automated brotips] The system which generated this result transmitted reference range: >=50. The reference range was not used to interpret this result as normal/abnormal. HDLC RATIO (test code = 5278923751) See_Comment [Automated brotips] The system which generated this result transmitted reference range: <=4.5. The reference range was not used to interpret this result as normal/abnormal. TRIG (test code = 3366972708) 355 mg/dL 30-170 H LDL CHOL (test code = 49842-3) 74 mg/dL See_Comment [Automated brotips] The system which generated this result transmitted reference range: <=160. The reference range was not used to interpret this result as normal/abnormal. VLDL (test code = 0913288092) 71 mg/dL 5-60 H Lab Interpretation (test code = 30145-7) [facility] Code Awvxup5422-63-26 18:46:27* Test Item Value Reference Range Interpretation Comments TROPONIN I (test code = 9204687016) 0.013 ng/mL See_Comment [Automated message] The system [...] of biotin. Lab Interpretation (test code = 20039-2) [facility] (NA, K, CL, CO2, Glucose, BUN, Creatinine, CA) - Code [id number] 18:35:07* Test Item Value Reference Range Interpretation Comme nts NA (test code = 8605922922) 136 mmol/L 135-145 K (test code = 5974896663) 4.3 mmol/L 3.5-5 CL (test code = 9069206173) 105 mmol/L 98-108 CO2 TOTAL (test code = 3801179733) 27 mmol/L 23-31 AGAP (test code = 7360095178) 2-16 BUN (test code = 1694092807) 8 mg/dL 7-23 GLUCOSE (test code = 9562089219) 130 mg/dL 70-110 H CREATININE (test code = 3021709421) 0.75 mg/dL 0.5-1.04 CALCIUM (test code = 6629557752) 8.5 mg/dL 8.6-10.6 L eGFR (test code = 4914256582) mL/min/1.73m2 LYNDSAY (test code = LYNDSAY) Association [...] imaging tests). Lab Interpretation (test code = 04071-7) Abnormal [facility] CenteraPTT - Code Lyangk1893-82-14 18:32:46* Test Item Value Reference Range Interpretation Comme [facility] APTT Patient (test code = 3173-2) See_Comment [Automated message] The system which generated this result transmitted reference range: 23 - 38 Seconds. The reference range was not used to interpret this result as normal/abnormal. LYNDSAY (test code = LYNDSAY) The [facility] patient population mean normal value for aPTT is 30 seconds. Lab Interpretation (test code = 70026-7) Normal [facility] CenterProthrombin Time / INR - Code Ccjbyk8662-46-18 18:30:45* Test Item Value Reference Range Interpretation [...] the indications. Lab Interpretation (test code = 92690-1) Normal [facility] CenterCBC without Diff - Code Moawwp0105-33-55 18:23:07* Test Item Value Reference Range Interpretation Comme [facility] WBC (test code = 6690-2) See_Comment [...] result as normal/abnormal. MPV (test code = 11883-5) 8.1 fL 9.5-12.9 L RDW-CV (test code = 788-0) 16.1 % 12-15.5 H RDW-SD (test code = 51145-3) 49.2 fL 39-49.9 NRBC x10^3 (test code = 7882534037) See_Comment [Automated [facility] [employer] The system which generated this result transmitted reference range: 10*3/?L. The reference range was not used to interpret this result as normal/abnormal. NRBC/100 WBC (test code = 7194228663) See_Comment [Automated [facility]] The system which generated this result transmitted reference range: 0.0 - 10.0 /100 WBCs. The reference range was not used to interpret this result as normal/abnormal. IPF % (test code = 6511378049) Lab Interpretation (test code = 28585-8) Abnormal [facility] [id number] 21:06:40* Test Item Value Reference Range Interpretation Comments TROPONIN I (test code = 8589104423) 0.005 ng/mL See_Comment [Automated message] The system [...] of biotin. Lab Interpretation (test code = 23360-9) Normal [facility] CenterCOM. METABOLIC PANEL (80216)2021-11-23 20:55:42* Test Item Value Reference Range Interpretation Comme nts NA (test code = 6436105825) 137 mmol/L 135-145 K (test code = 7923939662) 4.3 mmol/L 3.5-5.0 CL (test code = 3857467629) 104 mmol/L 98-108 CO2 TOTAL (test code = 2776603303) 22 mmol/L 23-31 L AGAP (test code = 0476451217) 2-16 BUN (test code = 4959386839) 15 mg/dL 7-23 GLUCOSE (test code = 4982012255) 114 mg/dL 70-110 H CREATININE (test code = 5719344544) 0.68 mg/dL 0.50-1.04 TOTAL BILI (test code = 1096838410) 0.5 mg/dL 0.1-1.1 CALCIUM (test code = 0932080759) 9.1 mg/dL 8.6-10.6 T PROTEIN (test code = 9723566570) 7.3 g/dL 6.3-8.2 ALBUMIN (test code = 2801615930) 4.4 g/dL 3.5-5.0 ALK PHOS (test code = 9767209144) 243 U/L 34-122 H ALTv (test code = 1742-6) 24 U/L 5-35 AST(SGOT) (test code = 0907481551) 30 U/L 13-40 eGFR (test code = 2045088550) mL/min/1.73m2 LYNDSAY (test code = LYNDSAY) Association [...] imaging tests). Lab Interpretation (test code = 12762-9) Abnormal [facility] CenterLIPASE2022-05-07 20:55:22* Test Item Value Reference Range Interpretation Comme nts LIPASE (test code = 2921612812) 96 U/L 0-220 Lab Interpretation (test cod e = 02703-6) Normal [facility] CenterPOCT [id number] 20:46:00* Test Item Value Reference Range Interpretation Comme nts POCT PREG (test code = 1605) negative On board controls acceptable with C Line (test code = 3574) present POCT PREG LOT # (test code = 3575) [id number] POCT PREG TEST DATE ( test code = 3576) 04/18/2023 Lab Interpretation (test cod e = 62700-7) Normal [facility] CenterCBC WITH [id number] 20:40:38* Test Item Value Reference Range Interpretation Comme nts WBC (test code = 6690-2) See_Comment [Automated [facility]] The system which generated this result transmitted reference range: 4.30 - 11.10 10*3/?L. The reference range was not used to interpret this result as normal/abnormal. RBC (test code = 789-8) See_Comment [Automated [facility] [employer] [facility]] The system which generated this result [...] 31.8 g/dL 31.6-35.1 RDW-SD (test code = 34503-5) 53.7 fL 39.0-49.9 H RDW-CV (test code = 788-0) 17.2 % 12.0-15.5 H PLT (test code = 777-3) See_Comment H [Automated messa ge] The system which generated this result transmitted reference range: 166 - 358 10*3/?L. The reference range was not used to interpret this result as normal/abnormal. MPV (test code = 10941-8) 8.5 fL 9.5-12.9 L NRBC/100 WBC (test code = 3067063906) See_Comment [Automated WebMD ssage] The system which generated this result transmitted reference range: 0.0 - 10.0 /100 WBCs. The reference range was not used to interpret this result as normal/abnormal. NRBC x10^3 (test code = 6485781614) <0.01 See_Comment [Automated messa ge] The system which generated this result transmitted reference range: 10*3/?L. The reference range was not used to interpret this result as normal/abnormal. GRAN MAT (NEUT) % (test code = 770-8) 53.7 % IMM GRAN % (test code = 8911715094) 0.90 % LYMPH % (test code = 736-9) 32.6 % MONO % (test code = 5905-5) 10.1 % EOS % (test code = 713-8) 1.5 % BASO % (test code = 706-2) 1.2 % GRAN MAT x10^3(ANC) (test code = 9009908773) 4.98 10*3/uL 1.88-7.09 IMM GRAN x10^3 (test code = 2825802054) 0.08 10*3/uL 0.00-0.06 H LYMPH x10^3 (test code = 731-0) 3.02 10*3/uL 1.32-3.29 MONO x10^3 (test code = 742-7) 0.94 10*3/uL 0.33-0.92 H EOS x10^3 (test code = 711-2) 0.14 10*3/uL 0.03-0.39 BASO x10^3 (test code = 704-7) 0.11 10*3/uL 0.01-0.07 H Lab Interpretation (test code = 09636-1) Abnormal [facility] CenterPOCT GLUCOSE (AUTOMATED)2021-11-23 20:17:33* Test Item Value Reference Range Interpretation Comme [facility] POCT GLU (test code = 2686220321) 111 mg/dL 70-110 H Notified Provide r Lab Interpretation (test code = 22452-7) Abnormal [facility] CenterPAP TEST, THINPREP, [id number] 00:00:00 * Test Item Value Reference Range Interpretation Comme nts SOURCE: (test code = 8001) Endocervical SLIDES: (test code = 8011) 1 LMP: (test code = 8021) 06/03/2021 SPECIMEN ADEQUACY: (test code = 60731) (NOTE) INTERPRETATION: (test code = 39039) ASCUS/EPITH. ABNORMALITY; SEE BELOW DEALER SUPPORT TECHNICIAN: (test code = 8101) CHANA Thacker(ASCP)[facility] PATHOLOGIST INTERPRETATION BY: (test code = 8122) Nahid Russell M.D. LOCATION: (test code = 14592) (NOTE) CPT: (test code = 8140) (NOTE) PAP TEST, THINPREP, [id number] 00:00:00* Test Item Value Reference Range Interpretation Comme nts SOURCE: (test code = 8001) Endocervical SLIDES: (test code = 8011) 1 LMP: (test code = 8021) 06/03/2021 SPECIMEN ADEQUACY: (test code = 40968) (NOTE) INTERPRETATION: (test code = 22104) ASCUS/EPITH. ABNORMALITY; SEE BELOW DEALER SUPPORT TECHNICIAN: (test code = 8101) CHANA Thacker(ASCP)IAC PATHOLOGIST INTERPRETATION BY: (test code = 8122) Nahid Russell M.D. LOCATION: (test code = 86504) (NOTE) CPT: (test code = 8140) (NOTE) HPV HIGH RISK WITH GENOTYPE, [id number] 00:00:00* Test Item Value Reference Range Interpretation Comme nts HPV HIGH RISK INTERP (test c ode = 23871) POSITIVE HPV 16 (test code = 00717) POSITIVE HPV 18 (test code = 03181) NEGATIVE HPV, HR, OTHER GENOTYPES (te st code = 75492) POSITIVE HPV HIGH RISK WITH GENOTYPE, [id number] 00:00:00* Test Item Value Reference Range Interpretation Comme nts HPV HIGH RISK INTERP (test c ode = 59982) POSITIVE HPV 16 (test code = 98953) POSITIVE HPV 18 (test code = 41954) NEGATIVE HPV, HR, OTHER GENOTYPES (te st code = 91647) POSITIVE [id number] 03:22:48* Test Item Value Reference Range Interpretation Comme nts APPEARANCE (test code = 1425562021) Hazy Clear A COLOR (test code = 7989267872) Yellow Yellow PH (test code = 9377921952) 4.8-8.0 SP GRAVITY (test code = 5044176581) 1.003-1.030 GLU U QUAL (test code = 6472395000) Normal Normal BLOOD (test code = 0937297704) Negative Negative Interference fro m ascorbic acid may cause false negative results. KETONES (test code = 8804393687) 5 mg/dL Negative A PROTEIN (test code = 2887-8) Negative Negative UROBILIN (test code = 8883652151) 4.0 mg/dL Normal A BILIRUBIN (test code = 8025254247) Negative Negative NITRITE (test code = 3610810243) Negative Negative LEUK GRUPO (test code = 8892603916) Negative Negative RBC/HPF (test code = 0989184748) See_Comment [Automated messa ge] The system which generated this result transmitted reference range: 0 - 3 HPF. The reference range was not used to interpret this result as normal/abnormal. WBC/HPF (test code = 0669494510) <1 See_Comment [Automated messa ge] The system which generated this result transmitted reference range: 0 - 5 HPF. The reference range was not used to interpret this result as normal/abnormal. BACTERIA (test code = 5318674459) Few Negative A SQ EPITH (test code = 5774526596) HPF Lab Interpretation (test code = 45079-5) [facility]normal [facility] CenterURINALYSIS2021-08-29 03:22:48* Test Item Value Reference Range Interpretation Comme nts APPEARANCE (test code = 0089028609) Hazy Clear A COLOR (test code = 0157085596) Yellow Yellow PH (test code = 1799799373) 4.8-8.0 SP GRAVITY (test code = 9736890040) 1.003-1.030 GLU U QUAL (test code = 8555585072) Normal Normal BLOOD (test code = 3549077563) Negative Negative KETONES (test code = 0356843784) 5 mg/dL Negative A PROTEIN (test code = 2887-8) Negative Negative UROBILIN (test code = 0718117624) 4.0 mg/dL Normal A BILIRUBIN (test code = 6898428438) Negative Negative NITRITE (test code = 1789031029) Negative Negative LEUK GRUPO (test code = 6088907997) Negative Negative RBC/HPF (test code = 4829746156) See_Comment [Automated [employer]] The system which generated this result transmitted reference range: 0 - 3 HPF. The reference range was not used to interpret this result as normal/abnormal. WBC/HPF (test code = 3095226288) <1 See_Comment [Automated [employer]] The system which generated this result transmitted reference range: 0 - 5 HPF. The reference range was not used to interpret this result as normal/abnormal. BACTERIA (test code = 1519643143) Few Negative A SQ EPITH (test code = 2604459754) HPF Lab Interpretation (test code = 78642-0) Abnormal [facility] CenterTROPONIN [id number] 02:45:00* Test Item Value Reference Range Interpretation Comments TROPONIN I (test code = 4457075922) 0.002 ng/mL See_Comment [Automated message] The system [...] of biotin. Lab Interpretation (test code = 92370-5) Normal [facility] CenterTR[facility]ID[facility]NIN [id number] 02:45:00* Test Item Value Reference Range Interpretation Comme nts TROPONIN I (test code = 0316788059) 0.002 ng/mL See_Comment [Automated [facility] [employer] The system which generated this result transmitted reference range: <=0.034. The reference range was not used to interpret this result as normal/abnormal. LYNDSAY (test code = LYNDSAY) Lab Interpretation (test code = 56165-9) Normal [facility] CenterN-TERMINAL [id number] 02:41:57* Test Item Value Reference Range Interpretation Comme nts NT-proBNP (test code = 8861476679) 169 pg/mL See_Comment H [Automated message] The system which generated this result transmitted reference range: <=125. The reference range was not used to interpret this result as normal/abnormal. LYNDSAY (test code = LYNDSAY) Biotin has been reported to cause a negative bias, interpret results relative to patient's use of biotin. Lab Interpretation (test code = 89377-9) Abnormal [facility] CenterN-TERMINAL [id number] 02:41:57* Test Item Value Reference Range Interpretation Comme nts NT-proBNP (test code = 6772838352) 169 pg/mL See_Comment H [Automated [facility] [employer] The system which generated this result transmitted reference range: <=125. The reference range was not used to interpret this result as normal/abnormal. LYNDSAY (test code = LYNDSAY) Lab Interpretation (test code = 52796-4) Abnormal [facility]. METABOLIC PANEL (61235)2021-03-17 02:09:13* Test Item Value Reference Range Interpretation Comme nts NA (test code = 2166394177) 137 mmol/L 135-145 K (test code = 9796902375) 4.2 mmol/L 3.5-5.0 CL (test code = 9490375131) 102 mmol/L 98-108 CO2 TOTAL (test code = 9475903540) 25 mmol/L 23-31 AGAP (test code = 8412887771) 2-16 BUN (test code = 4918140180) 18 mg/dL 7-23 GLUCOSE (test code = 0354313582) 144 mg/dL 70-110 H CREATININE (test code = 9935672099) 0.77 mg/dL 0.50-1.04 TOTAL BILI (test code = 7152661256) 0.4 mg/dL 0.1-1.1 CALCIUM (test code = 9008728018) 8.9 mg/dL 8.6-10.6 T PROTEIN (test code = 7154380620) 6.8 g/dL 6.3-8.2 ALBUMIN (test code = 1980661425) 3.9 g/dL 3.5-5.0 ALK PHOS (test code = 3492559206) 84 U/L 34-122 ALTv (test code = 1742-6) 13 U/L 5-35 AST(SGOT) (test code = 0544100048) 17 U/L 13-40 eGFR (test code = 9435295998) mL/min/1.73m2 LYNDSAY (test code = LYNDSAY) Association [...] imaging tests). Lab Interpretation (test code = 05259-9) Abnormal [facility]. METABOLIC PANEL (44681)2021-03-17 02:09:13* Test Item Value Reference Range Interpretation Comme nts NA (test code = 7988793789) 137 mmol/L 135-145 K (test code = 0352572790) 4.2 mmol/L 3.5-5.0 CL (test code = 9312834714) 102 mmol/L 98-108 CO2 TOTAL (test code = 8634266212) 25 mmol/L 23-31 AGAP (test code = 7014228120) 2-16 BUN (test code = 0582211516) 18 mg/dL 7-23 GLUCOSE (test code = 9045092852) 144 mg/dL 70-110 H CREATININE (test code = 5733680628) 0.77 mg/dL 0.50-1.04 TOTAL BILI (test code = 9532338244) 0.4 mg/dL 0.1-1.1 CALCIUM (test code = 7208785744) 8.9 mg/dL 8.6-10.6 T PROTEIN (test code = 3927769416) 6.8 g/dL 6.3-8.2 ALBUMIN (test code = 2178727382) 3.9 g/dL 3.5-5.0 ALK PHOS (test code = 5955823338) 84 U/L 34-122 ALTv (test code = 1742-6) 13 U/L 5-35 AST(SGOT) (test code = 3623187225) 17 U/L 13-40 eGFR (test code = 5839261800) mL/min/1.73m2 LYNDSAY (test code = LYNDSAY) Lab Interpretation (test cod e = 35430-5) Abnormal [facility] WITH [id number] 01:56:33* Test Item Value Reference Range Interpretation [...] g/dL 31.6-35.1 L RDW-SD (test code = 25863-1) 55.5 fL 39.0-49.9 H RDW-CV (test code = 788-0) 18.9 % 12.0-15.5 H PLT (test code = 777-3) See_Comment H [Automated messa ge] The system which generated this result transmitted reference range: 166 - 358 10*3/?L. The reference range was not used to interpret this result as normal/abnormal. MPV (test code = 16429-6) 8.2 fL 9.5-12.9 L NRBC/100 WBC (test code = 9045041567) See_Comment [Automated me ssage] The system which generated this result transmitted reference range: 0.0 - 10.0 /100 WBCs. The reference range was not used to interpret this result as normal/abnormal. NRBC x10^3 (test code = 3720895751) <0.01 See_Comment [Automated messa ge] The system which generated this result transmitted reference range: 10*3/?L. The reference range was not used to interpret this result as normal/abnormal. GRAN MAT (NEUT) % (test code = 770-8) 61.7 % IMM GRAN % (test code = 9151097271) 0.80 % LYMPH % (test code = 736-9) 28.5 % MONO % (test code = 5905-5) 6.3 % EOS % (test code = 713-8) 1.8 % BASO % (test code = 706-2) 0.9 % GRAN MAT x10^3(ANC) (test code = 4450433000) 7.31 10*3/uL 1.88-7.09 H IMM GRAN x10^3 (test code = 1607301775) 0.09 10*3/uL 0.00-0.06 H LYMPH x10^3 (test code = 731-0) 3.38 10*3/uL 1.32-3.29 H MONO x10^3 (test code = 742-7) 0.75 10*3/uL 0.33-0.92 EOS x10^3 (test code = 711-2) 0.21 10*3/uL 0.03-0.39 BASO x10^3 (test code = 704-7) 0.11 10*3/uL 0.01-0.07 H Lab Interpretation (test code = 10183-1) Abnormal [facility] WITH [id number] 01:56:33* Test Item Value Reference Range Interpretation [...] g/dL 31.6-35.1 L RDW-SD (test code = 40373-3) 55.5 fL 39.0-49.9 H RDW-CV (test code = 788-0) 18.9 % 12.0-15.5 H PLT (test code = 777-3) See_Comment H [Automated messa ge] The system which generated this result transmitted reference range: 166 - 358 10*3/?L. The reference range was not used to interpret this result as normal/abnormal. MPV (test code = 14194-1) 8.2 fL 9.5-12.9 L NRBC/100 WBC (test code = 8469754550) See_Comment [Automated WebMD ssage] The system which generated this result transmitted reference range: 0.0 - 10.0 /100 WBCs. The reference range was not used to interpret this result as normal/abnormal. NRBC x10^3 (test code = 1763791281) <0.01 See_Comment [Automated messa ge] The system which generated this result transmitted reference range: 10*3/?L. The reference range was not used to interpret this result as normal/abnormal. GRAN MAT (NEUT) % (test code = 770-8) 61.7 % IMM GRAN % (test code = 0418319113) 0.80 % LYMPH % (test code = 736-9) 28.5 % MONO % (test code = 5905-5) 6.3 % EOS % (test code = 713-8) 1.8 % BASO % (test code = 706-2) 0.9 % GRAN MAT x10^3(ANC) (test code = 1271799557) 7.31 10*3/uL 1.88-7.09 H IMM GRAN x10^3 (test code = 1861629418) 0.09 10*3/uL 0.00-0.06 H LYMPH x10^3 (test code = 731-0) 3.38 10*3/uL 1.32-3.29 H MONO x10^3 (test code = 742-7) 0.75 10*3/uL 0.33-0.92 EOS x10^3 (test code = 711-2) 0.21 10*3/uL 0.03-0.39 BASO x10^3 (test code = 704-7) 0.11 10*3/uL 0.01-0.07 H Lab Interpretation (test code = 67551-7) Abnormal [facility]-19 (ID NOW RAPID TESTING)2021-03-17 01:38:12* Test Item Value Reference Range Interpretation Comme nts SARS-CoV-2 Rapid ID NOW (test code = 29839-8) Not Detected Not Detected LYNDSAY (test code = LYNDSAY) ID NOW COVID-19 As say is an isothermal nucleic acid amplification test intended for the qualitative detection of nucleic acid from SARS-CoV-2 viral RNA in nasopharyngeal (INFORMATION DEVELOPER) specimens. It is used under Emergency [...] clinically indicated. Lab Interpretation (test code = 62318-8) Normal [place] [address] (ID NOW RAPID TESTING)2021-03-17 01:38:12* Test Item Value Reference Range Interpretation Comme nts SARS-CoV-2 Rapid ID NOW (raisa t code = 82095-5) Not Detected Not Detected LYNDSAY (test code = LYNDSAY) Lab Interpretation (test cod e = 08401-8) Normal [facility]19 (ID NOW RAPID TESTING)2021-02-19 17:42:45* Test Item Value Reference Range Interpretation Comme nts SARS-CoV-2 Rapid ID NOW (test code = 22958-1) Not Detected Not Detected LYNDSAY (test code = LYNDSAY) ID NOW COVID-19 As say is an isothermal nucleic acid amplification test intended for the qualitative detection of nucleic acid from SARS-CoV-2 viral RNA in nasopharyngeal (INFORMATION DEVELOPER) specimens. It is used under Emergency [...] clinically indicated. Lab Interpretation (test code = 07617-9) [facility]CT [facility] PEL[facility] W FWVLVQUP1295-19-01 17:24:55Thickening of the gastric antrum and duodenal [...] Electronicallysigned by James Freeman at 02/19/2021 12:24 PM[facility] UhykpzKlwvivdngw7358-97-46 17:03:40* Test Item Value Reference Range Interpretation Comme nts APPEARANCE (test code = 2261919651) Hazy Clear A COLOR (test code = 6847432467) Mabel Yellow A PH (test code = 9988213789) 4.8-8.0 SP GRAVITY (test code = 9936900686) 1.003-1.030 H GLU U QUAL (test code = 9482405163) Normal Normal BLOOD (test code = 7512353656) Negative Negative KETONES (test code = 3651619732) 5 mg/dL Negative A PROTEIN (test code = 2887-8) 30 mg/dL Negative A UROBILIN (test code = 5090862949) 4.0 mg/dL Normal A BILIRUBIN (test code = 7118780898) 4 mg/dL Negative A NITRITE (test code = 1790174318) Negative Negative LEUK GRUPO (test code = 4173998961) Negative Negative RBC/HPF (test code = 9372509023) See_Comment H [Automated messa ge] The system which generated this result transmitted reference range: 0 - 3 HPF. The reference range was not used to interpret this result as normal/abnormal. WBC/HPF (test code = 9142587764) See_Comment H [Automated messa ge] The system which generated this result transmitted reference range: 0 - 5 HPF. The reference range was not used to interpret this result as normal/abnormal. BACTERIA (test code = 5049564975) Few Negative A MUCOUS (test code = 0113423583) Moderate Negative LPF A SQ EPITH (test code = 6512776658) HPF CA OXALATE (test code = 0758624839) See_Comment H [Automated messa ge] The system which generated this result transmitted reference range: <=1 HPF. The reference range was not used to interpret this result as normal/abnormal. Ictotest (test code = 2837711742) Negative Lab Interpretation (test code = 19440-4) [facility]normal [facility] [id number] 16:34:55* Test Item Value Reference Range Interpretation Comme nts NA (test code = 0973547930) 139 mmol/L 135-145 K (test code = 4718851028) 4.3 mmol/L 3.5-5.0 CL (test code = 7310440682) 105 mmol/L 98-108 CO2 TOTAL (test code = 2729934113) 26 mmol/L 23-31 AGAP (test code = 9004378997) 2-16 BUN (test code = 5653887709) 11 mg/dL 7-23 GLUCOSE (test code = 1119512873) 95 mg/dL 70-110 CREATININE (test code = 1117711283) 0.70 mg/dL 0.50-1.04 TOTAL BILI (test code = 9242107523) 0.6 mg/dL 0.1-1.1 CALCIUM (test code = 9804343239) 8.9 mg/dL 8.6-10.6 T PROTEIN (test code = 1459054645) 7.7 g/dL 6.3-8.2 ALBUMIN (test code = 0171567520) 4.1 g/dL 3.5-5.0 ALK PHOS (test code = 3426614456) 79 U/L 34-122 ALTv (test code = 1742-6) 10 U/L 5-35 AST(SGOT) (test code = 7575887949) 22 U/L 13-40 eGFR (test code = 3059512648) mL/min/1.73m2 LYNDSAY (test code = LYNDSAY) Association [...] abnormalities in imaging tests). [facility], [id number] 16:34:14* Test Item Value Reference Range Interpretation Comme nts LIPASE (test code = 5944667050) 45 U/L 0-220 Lab Interpretation (test cod e = 43690-3) Normal [facility] with Lkjknyuknaee9826-97-31 16:21:12* Test Item Value Reference Range Interpretation Comme nts WBC (test code = 6690-2) See_Comment [Automated brotips] The system which generated this result transmitted reference range: 4.30 - 11.10 10*3/?L. The reference range was not used to interpret this result as normal/abnormal. RBC (test code = 789-8) See_Comment [[employer]] The system which generated this result [...] g/dL 31.6-35.1 L RDW-SD (test code = 96619-4) 54.4 fL 39.0-49.9 H RDW-CV (test code = 788-0) 18.3 % 12.0-15.5 H PLT (test code = 777-3) See_Comment H [Automated messa ge] The system which generated this result transmitted reference range: 166 - 358 10*3/?L. The reference range was not used to interpret this result as normal/abnormal. MPV (test code = 02051-4) 8.5 fL 9.5-12.9 L NRBC/100 WBC (test code = 7905159348) See_Comment [Automated me ssage] The system which generated this result transmitted reference range: 0.0 - 10.0 /100 WBCs. The reference range was not used to interpret this result as normal/abnormal. NRBC x10^3 (test code = 7670180897) <0.01 See_Comment [Automated messa ge] The system which generated this result transmitted reference range: 10*3/?L. The reference range was not used to interpret this result as normal/abnormal. GRAN MAT (NEUT) % (test code = 770-8) 78.3 % IMM GRAN % (test code = 4514736943) 0.40 % LYMPH % (test code = 736-9) 15.4 % MONO % (test code = 5905-5) 4.8 % EOS % (test code = 713-8) 0.1 % BASO % (test code = 706-2) 1.0 % GRAN MAT x10^3(ANC) (test code = 4841625043) 7.15 10*3/uL 1.88-7.09 H IMM GRAN x10^3 (test code = 7460540250) 0.04 10*3/uL 0.00-0.06 LYMPH x10^3 (test code = 731-0) 1.41 10*3/uL 1.32-3.29 MONO x10^3 (test code = 742-7) 0.44 10*3/uL 0.33-0.92 EOS x10^3 (test code = 711-2) <0.03 0.03-0.39 L BASO x10^3 (test code = 704-7) 0.09 10*3/uL 0.01-0.07 H Lab Interpretation (test code = 77054-9) Abnormal [facility] Consult Notes Date/Time Note Provider Source 2024-08-10 12:16:49 Associated Order(s): IP CONSULT TO SOCIAL WORK Reason For Consult SW consulted for transport home. Pt transferred from [place]. SW spoke with pt at bedside, pt states she is going to her friend's [place] ([phone]) home at [address] [place] [address]. Pt is wheelchair bound and does not have wheelchair here. SW arranged [facility] Weight Reduction Specialist [facility] 2024-01-10 12:39:30 Associated Order(s): CONSULT CARDIOLOGY [facility] Cardiology Consult PCP: PATIENT DOES NOT HAVE A PCP Date of Service: 01/10/2024 CHIEF COMPLAINT/reason for consult: Chest pain HISTORY OF PRESENT ILLNESS This is a 53 years old female with past medical history of smoking, COPD, hypertension, obesity, nonobstructive coronary artery disease, systolic and diastolic heart failure, left ventricular thrombosis and pulm hypertension. She presented to [facility] emergency room with chest pain. [...] (chronic obstructive pulmonary disease) Diverticulitis Epilepsy Hypertension CA (myocardial infarction) 07/20/2007 Slipped disc Stomach cancer Substance abuse Marijuana daily-for anxiety Past Surgical History: Procedure Laterality Date ANTERIOR CERVICAL FUSION CHOLECYSTECTOMY HAND/FINGER SURGERY UNLISTED Bilateral 3 L hand, 3 R hand METATARSAL OSTEOTOMY Right 08/14/2015 Surgeon: Luis Jones Jr., ESTHER; [place] [facility] [place] Family History Problem Relation Age of [...] pulmonary disease) Obesity Coronary artery disease involving galena coronary artery of galena heart without angina pectoris Snores Cigarette smoker [...] further assistance. Kylee Montez MD, FACC, AMADOR Cat Cracker Operator Division of Cardiovascular Medicine [facility] Onfido 2023-12-15 08:28:19 Associated Order(s): CONSULT CARDIOLOGY [facility] Cardiology Consult PCP: PATIENT DOES NOT HAVE A PCP Date of Service: 12/15/2023 CHIEF COMPLAINT/reason for consult: Heart failure HISTORY OF PRESENT ILLNESS This is a 53 years old female with past medical history of smoking, COPD, hypertension, obesity, nonobstructive coronary artery disease, systolic and diastolic heart failure, left ventricular thrombosis and pulm hypertension. She presented to [facility] emergency room with dyspnea, chest [...] (chronic obstructive pulmonary disease) Diverticulitis Epilepsy Hypertension CA (myocardial infarction) 07/20/2007 Slipped disc Stomach cancer Substance abuse Marijuana daily-for anxiety Past Surgical History: Procedure Laterality Date ANTERIOR CERVICAL FUSION CHOLECYSTECTOMY HAND/FINGER SURGERY UNLISTED Bilateral 3 L hand, 3 R hand METATARSAL OSTEOTOMY Right 08/14/2015 Surgeon: Luis Jones Jr., DPM; [place] [facility] [place] Family History Problem Relation Age of [...] pain, unspecified type Coronary artery disease involving galena coronary artery of galena heart without angina pectoris Snores Cigarette smoker [...] further assistance. Kylee Montez MD, FACC, AMADOR Cat Cracker Operator Division of Cardiovascular Medicine [facility] 2023-11-27 14:57:00 Associated Order(s): CONSULT ADULT PHYSICAL THERAPY 11/27/2023 Physical therapy note: Duplicate consult. Sami Teran,PT, DPT,CMSR Sami T Jeffry PT [facility] 2023-11-25 10:16:00 Associated Order(s): CONSULT ADULT [...] (chronic obstructive pulmonary disease) Diverticulitis Epilepsy Hypertension CA (myocardial infarction) 07/20/2007 Slipped disc Stomach cancer Substance abuse Marijuana daily-for anxiety PSH: Past Surgical History: Procedure Laterality Date ANTERIOR CERVICAL FUSION CHOLECYSTECTOMY HAND/FINGER SURGERY UNLISTED Bilateral 3 L hand, 3 R hand METATARSAL OSTEOTOMY Right 08/14/2015 Surgeon: Luis Jones Jr., ESTHER; [place] [facility] [place] Prior Living Situation: lives with her [...] -Pain Management: Nursing Notified COMMUNICATION Primary Language: Citizen Of [place] Able to Verbalize needs: Yes Vision:good; no [...] Minutes: 30 min Sami Loza. JeffryPT, DPT,CMSR T [facility] - Health History and Physical Notes [...] on blood thinners. Pt was transferred to [facility] ED for a higher level of care [...] on blood thinners. Pt was transferred to [facility] ED for a higher level of care [...] repeat CT brain without contrast. Please call [phone] to schedule an appointment. Importance of follow up and red flags symptoms discussed with patient. She was counseled on not take ASA or blood thinners. - Please call [phone] with NSGY questions or concerns Prakash Eckert MD [facility] Neurosurgery Cosigned by Gus Jamison MD at 08/10/2024 8:06 AM TARGETEER ETEER ETEER Associated attestation - Gus Jamison MD - 08/10/2024 8:06 AM TARGETEER I have reviewed the case and imaging. The CT shows minimal, unchanged hemorrhage that does not require intervention. We will defer further management to the ER and neurology. Please call [phone] with questions. Neurosurgery Physician Jeffry Bolaños 2024-01-09 22:04:15 [facility] Hospitalist Admission H&P Date of Service: 01/09/2024 CHIEF COMPLAINT: Patient with complaints of chest pain and a history of cardiomyopathy with left ventricular thrombus HISTORY OF PRESENT ILLNESS Heather Turner is a 53 year old female who presents with chest discomfort. Patient had extensive cardiac workup done recently at [facility]. At that time, patient was noted [...] a while. Patient recently started coming to [facility] as she had been going to [facility]. At this time, she will be [...] (chronic obstructive pulmonary disease) Diverticulitis Epilepsy Hypertension CA (myocardial infarction) 07/20/2007 Slipped disc Stomach cancer Substance abuse Marijuana daily-for anxiety Pseudoseizures PAST SURGICAL HISTORY Past Surgical History: Procedure Laterality Date ANTERIOR CERVICAL FUSION CHOLECYSTECTOMY HAND/FINGER SURGERY UNLISTED Bilateral 3 L hand, 3 R hand METATARSAL OSTEOTOMY Right 08/14/2015 Surgeon: Luis Jones Jr., ESTHER; Location: [facility] OR Location TONSILLECTOMY ALLERGIES Allergies Allergen Reactions [...] edema versus atypical pneumonia. RL: 4131 AFC: 45802 End of report CHEST 1 VW Narrative [...] given high risk of morbidity and mortality. [place] FOREST ECOLOGIST was verified during stay Darrick Altamirano MD [facility] 2023-12-14 22:42:40 MEDICINE [facility] ADMIT H&P Date of Service: 12/14/2023 CHIEF COMPLAINT: shortness of breath Subjective History of Present Illness 53 year old female with a PMH significant for HFrEF (15-20% on 11/22/23) w/ LV thrombus, RLE DVT, RLL segmental PE, HTN, smoker, COPD, chronic low back pain, depression presenting from [facility] ED due to chest [...] (chronic obstructive pulmonary disease) Diverticulitis Epilepsy Hypertension CA (myocardial infarction) 07/20/2007 Slipped disc Stomach cancer Substance abuse Marijuana daily-for anxiety Past Surgical History: Procedure Laterality Date ANTERIOR CERVICAL FUSION CHOLECYSTECTOMY HAND/FINGER SURGERY UNLISTED Bilateral 3 L hand, 3 R hand METATARSAL OSTEOTOMY Right 08/14/2015 Surgeon: Luis Jones Jr., DPM; [place] [facility] [place] Family History Problem Relation Age of [...] PHYSICAL EXAMINATION Vitals: 12/14/23 1830 12/14/23 1841 12/14/23201712/14/23 2110 BP: 116/82 115/78 Pulse: 80 90 [...] On Eliquis Code Status: Full Code T [facility] EMERGENCY PHYSICIAN STAFF [facility] 2023-11-22 13:30:57 CCU Team Admit H&P [...] lumbar spinal stenosis, and depression presenting from [facility] ED due to SOB. [...] (chronic obstructive pulmonary disease) Diverticulitis Epilepsy Hypertension CA (myocardial infarction) 07/20/2007 Slipped disc Stomach cancer Substance abuse Marijuana daily-for anxiety Prior to Admission medications Medication Sig Start Date End Date Taking? Authorizing Provider metoprolol succinate XL 25 mg 24 hr tablet Take 1 tablet by mouth every morning. 05/11/23 Yes Doctor Unassigned, [place] spironolactone 25 mg tablet Take 1 tablet by mouth in the morning and 1 tablet in the evening. 09/30/23 Yes Doctor Unassigned, [place] DULoxetine 30 mg capsule Take 1 capsule by mouth in the morning. Doctor Unassigned, [place] furosemide 20 mg tablet Take 1 tablet by mouth every morning and evening. Doctor Unassigned, [place] Lacosamide (VIMPAT) 100 mg tablet Take 1 [...] or Shortness of Breath. 03/15/21 Lydia Desouza, NUTRITION SERVICES WORKER dicyclomine 20 mg tablet Take 1 tablet by mouth 4 (four) times daily as needed for Abdominal pain. 02/19/21 Estefania Monroy PAC proMETHazine 25 mg tablet Take 1 tablet by mouth every 6 (six) hours as needed for Nausea and Vomiting (N/V). 02/19/21 Estefania Monroy PAC ondansetron 4 mg tablet Take 4 mg by mouth every 8 (eight) hours as needed. Doctor Unassigned, [place] pantoprazole 40 mg EC tablet Take 40 mg by mouth daily. Doctor Unassigned, [place] amLODIPine (NORVASC) 10 mg tablet Take 1 Tab by mouth daily. 09/20/15 Kylee Montez MD carvedilol (COREG) 6.25 mg tablet Take 1 Tab by mouth 2 (two) times daily with meals. 09/20/15 Kylee Montez MD lisinopril (PRINIVIL,ZESTRIL) 40 mg tablet Take 1 Tab by mouth daily. 09/20/15 Kylee Montez MD loratadine (CLARITIN LIQUI-GEL) 10 mg capsule Take by mouth daily. Doctor Unassigned, [place] MULTIVITAMIN ORAL Take 1 Tab by mouth daily. Doctor Unassigned, [place] omega-3 fatty acids-vitamin E (FISH OIL) 1,000 mg capsule Take 1 g by mouth daily. Doctor Unassigned, [place] Allergies Allergen Reactions Green Tea Other - See comments Seizures Diclofenac Hypertension Keppra [Levetiracetam] Other - See comments Makes seizures worse Past surgical history: Past Surgical History: Procedure Laterality Date ANTERIOR CERVICAL FUSION CHOLECYSTECTOMY HAND/FINGER SURGERY UNLISTED Bilateral 3 L hand, 3 R hand METATARSAL OSTEOTOMY Right 08/14/2015 Surgeon: Luis Jones Jr., DPM; Location: [facility] OR [facility] TONSILLECTOMY Allergies: Allergies Allergen Reactions Green [...] Otherwise, Sonographically unremarkable right upper quadrant. RL: 5139 HS:Y CHEST PULMONARY ANGIOGRAM Result Date: 11/22/2023 1. Right lung lower lobe segmental pulmonary embolism. The patient is already on anticoagulation for lower extremity DVT. 2. Mild cardiomegaly. 3. Left adrenal nodule consider follow-up with elective contrast CT. ___ XR SHOULDER 2+ VW RIGHT Result Date: 11/22/2023 Impression: 1. No acute osseous abnormality. 2. Chronic findings as detailed. RL: 3609 End of Report LOWER EXTREMITY VEIN WITH [...] on TTE, currently on heparin gtt. Negative O[place]o Criteria. Blood cultures NGTD. Received cefepime 1 [...] today for BiV failure Cr Altamirano MD Renewable Energy Division Manager [facility] Cardiology 11/23/23 [facility] 2023-11-22 02:28:50 MEDICINE [place] H&P PCP: PATIENT DOES NOT HAVE A PCP Date of Service: 11/21/2023 CHIEF COMPLAINT: SOB History of Present Illness Heather Turner is a 53 year old female with a PMH significant for HFrEF (~35% 05/2023), HTN, Smoker, COPD, chronic low back pain, depression presenting from [facility] ED due to SOB. Pt states her home pulse ox was reading 86% and was having trouble catching her breath. Associated sx include PETERSON, orthopnea, CP that is substernal, pressure-like, and non radiating. She says the SOB started earlier today with productive cough. Denies fevers or chills. No recent sick contacts. States she was treated for pneumonia at [facility] 2 weeks ago with levaquin and prednisone [...] (chronic obstructive pulmonary disease) Diverticulitis Epilepsy Hypertension CA (myocardial infarction) 07/20/2007 Slipped disc Stomach cancer Substance abuse Marijuana daily-for anxiety Past Surgical History: Procedure Laterality Date ANTERIOR CERVICAL FUSION CHOLECYSTECTOMY HAND/FINGER SURGERY UNLISTED Bilateral 3 L hand, 3 R hand METATARSAL OSTEOTOMY Right 08/14/2015 Surgeon: Luis Jones Jr., DPM; [place] [facility] [place] Family History Problem Relation Age of [...] above R shoulder pain WC bound since Nov Pt states she was dropped in tub while family was trying to transfer her - R shoulder xray - agressive PT/OT eventually Chronic Conditions Hx of Seizures Chronic Low back pain Urinary Retention Depression - c/w Depakote - c/w flomax Pain UncontrolledTylenol and Placedo Prophylaxis: DVT- heparin Stress Ulcer: pantoprazole Code Status: addressed: Full Code Cris Mcnally, Internal Medicine [facility] Team Associated attestation - Ivis Mcdermott MD [...] results to the patient. Ivis Mcdermott MD Renewable Energy Division Manager Department of Internal Medicine Division of Cardiovascular Disease [facility] Procedure Notes Date/Time Note Provider Source 2023-11-23 15:17:41 Left Heart Cath/Coronary Angiography Date of Service: 11/23/2023 3:18 PM Indication/Diagnosis: heart failure Consent source: self Consent type: indications/complications discussed with patient/legal guardian; written consent obtained Time out completed: yes Aseptic technique: Chlorprep Local Anesthesia: 1% lidocaine without epinephrine Sedation: fentanyl 50 mcg, Versed 2 mg Access site: right radial artery, RIJ [place] 4.0 5fr 8 Fr IJ sheath [place] Closure Method: TR Band, manual pressure [...] was present for the entire procedure. [facility] Associated attestation - Cris Molina MD - [...] of right sided failure. Cris Molina MD law professor. Division of cardiovascular medicine [facility] IM-CARDIOVASCULAR DISEASE [facility] - Health Notes Date/Time Note Provider Source Referral ID Status Reason Start Date Expiration Date Visits Requested Visits Authorized [id number] Pending Review Specialty Services Required 08/10/2024 02/06/2025 1 1 ETEER* Consultation (Urgent) - Pending Review Specialty Diagnoses / Procedures Referred By Contac t Referred To Contact Family Medicine Diagnoses Breakthrough seizure (CMS/HCC) (HCC) Subdural hematoma (HCC) Closed head injury, initial encounter Nonintractable epilepsy without status epilepticus, unspecified epilepsy type (HCC) Procedures VA OFFICE/OUTPATIENT NEW HIGH MDM 60 MINUTES Dipak Colindres MD [address] [place] [address] Phone: tel: fax: Referral ID Status Reason Start Date Expiration Date Visits Requested Visits Authorized [id number] Pending Review Specialty Services Required 08/10/2024 02/06/2025 1 1 ETEER* Imaging (Routine) - Pending Review Specialty Diagnoses / Procedures Referred By Contac t Referred To Contact Radiology Procedures CT brain wo IV contrast Dipak Colindres MD [id number], [place] [address] Phone: tel: fax: Referral ID Status Reason Start Date Expiration Date V isits Requested Visits Authorized [id number] Pending Review 08/10/2024 02/06/2025 1 1 ETEER* Consultation (Urgent) - Pending Review Specialty Diagnoses / Procedures Referred By Contac t Referred To Contact Neurosurgery Diagnoses Subdural hematoma (HCC) Dipak Colindres MD [address] [address] Phone: tel: fax: Referral ID Status Reason Start Date Expiration Date Visits Requested Visits Authorized [id number] Pending Review Specialty Services Required 08/10/2024 02/06/2025 1 1 ETEER [id number] 15:10:22* [place] [id number] 15:10:22* Calculated C-SSRS Risk Score (Lifetime/Recent) Answer Date of Assessment Author No Risk Indicated 08/10/2024 8:53 AM TARGETEER Malinda Buckley RN * [place] Suicide Severity Rating Scale (Screener/Recent Self-Report) Question Answer Date of Assessment Author 1. Wish to be (Past 1 Month) No 025 8:53 AM Malinda Gates RN 2. Non-Specific Active Suici tomy Thoughts (Past 1 Month) No 08/10/2024 8:53 AM Malinda Gates RN 6. Suicidal Behavior (Lifetime) No 8:53 AM Malinda Gates RN [id number] 15:10:22* Loida Flores MD - 08/10/2024 12:37 PM TARGETEER General Neurology Initial Consultation Note Name: Heather Turner Date: 08/10/2024 Service: [place] Attending: Tomeka Reason for Consult: Seizures Assessment: Heather Turner is a 54 y.o. female with PMH of HTN, Epilepsy, CAD, HFrEF 15-20% EF, who neurology was consulted for breakthrough seizures. Patient states she does not take Depakote due to it being too expensive, and had a seizure when she was in her wheelchair and fell down striking her head. CT scan at outpatient ED revealed right-sided parafalcine SDH, stable on repeat. Patient reportedly had 3 seizures in total and received loading dose of fosphenytoin, ativan, and phenobarbital. Patient is now back to her baseline neurologically, and will benefit from close outpatient epilepsy following. Suspected Diagnoses: Breakthrough seizures 2/2 medication noncompliance Recommendations: - Patient needs 3 months supply of Generic Divalproex 1000mg BID (should be less than $50) - we will follow up CTH - She will also benefit from MRI T/L spine given acute pain and radicular symptoms but this is not urgent - Recommend UA given patient reports urgency and dysuria - Seizure precautions; no driving, using heavy machinery, etc. - We will organize follow up in our clinic for her epilepsy. Discussed with Attending Dr. Sandra Mahmood MD Resident Physician Neurology [facility] | [facility] Subjective History of Present Illness: Heather Turner is a 54 y.o. female with PMH of HTN, Epilepsy, CAD, HFrEF 15-20% EF on Depakote 1000mg BID (patient reports muñoz prohibitive), and had a seizure 08/10/24 when she was in her wheelchair and fell down striking her head. She presented to a local ED and CT scan revealed right-sided parafalcine SDH, stable on repeat. Patient reportedly had 3 seizures in total and received loading dose of fosphenytoin, ativan, and phenobarbital at outside hospitals. She was transferred to [facility] ED for a higher level of care and treatment recommendations. At bedside, patient was in obvious pain, tearful 2/2 back pain. Patient was able to explain that she has not been able to take her prescribed Depakote 2/2 to muñoz. Says that it is more than $400. She also said the previous keppra she was prescribed was also far too expensive. She states that her seizures are frequent, and that they are all very similar with "floppy fish" appearance including upper and lower extremity shaking. She denies and recent infections, diarrhea or consitpation. She states she does have recent urinary frequency and dysuria. She states she does not currenly follow outpatient with a neurologist, and is interested in establishing one in our clinic. Review of Systems (normal if not indicated by "+"): GEN: weight loss, acute distress, fever, fatigue, or weakness. HEENT: eye redness, loss of vision, blurry vision, flashing spots; no ear ringing, loss of smell, sinusitis, oral sores, loss of taste, or difficulty swallowing. CVS: chest pain, palpitations or shortness of breath. PUL: dyspnea, cough, or orthopnea. GI: abdominal pain, constipation, nausea, diarrhea or vomiting. Psych: depression, anxiety, no homicidal or suicidal ideation. Skin: rashes or edema. Hematology: bleeding or clotting tendency. : urinary frequency, urgency, or dysuria. Neuro: headache, dizziness, LOC, memory loss, muscle spasm or sensory deficits. Past Medical History: No past medical history on file. Past Surgical History: Past Surgical History: Procedure Laterality Date MRI ANGIOGRAM HEAD W AND WO IV CONTRAST 09/05/2023 MRI ANGIOGRAM HEAD W AND WO IV CONTRAST 09/05/2023 Family History: No family history on file. Social History: Social History Socioeconomic History Marital status: Never Spouse name: Not on file Number of children: Not on file Years of education: Not on file Highest education level: Not on file Occupational History Not on file Tobacco Use Smoking status: Not on file Smokeless tobacco: Not on file Substance and Sexual Activity Alcohol use: Not on file Drug use: Not on file Sexual activity: Not on file Other Topics Concern Not on file Social History Narrative Not on file Social Drivers of Health Financial Resource Strain: Low Risk (12/03/2023) Received from [facility] Overall Financial Resource Strain (CARDIA) Difficulty of Paying Living Expenses: Not very hard Food Insecurity: Food Insecurity Present (12/03/2023) Received from [facility] Hunger Vital Sign Worried About Running Out of Food in the Last Year: Sometimes true Ran Out of Food in the Last Year: Sometimes true Transportation Needs: No Transportation Needs (12/03/2023) Received from [facility] PRAPARE - Transportation Lack of Transportation (Medical): No Lack of Transportation (Non-Medical): No Recent Concern: Transportation Needs - Unmet Transportation Needs (11/26/2023) [facility] Lack of Transportation (Medical): Yes Lack of Transportation (Non-Medical): Yes Physical Activity: Inactive (12/03/2023) Received from [facility] Exercise Vital Sign Days of Exercise per Week: 0 days Minutes of Exercise per Session: 0 min Stress: Not on file Social Connections: Unknown (12/03/2023) Received from [facility] Social Connection and Isolation Panel [NHANES] Frequency of Communication with Friends and Family: Twice a week Frequency of Social Gatherings with Friends and Family: Not on file Attends [employer] Services: Not on file Active Member of Clubs or Organizations: Not on file Attends Club or Organization Meetings: Not on file Marital Status: Intimate Partner Violence: Not on file Housing Stability: High Risk (12/03/2023) Received from [facility] Housing Stability Vital Sign Unable to Pay for Housing in the Last Year: Yes Number of Places Lived in the Last Year: Not on file Unstable Housing in the Last Year: Yes Medications: (Not in a hospital admission) Objective Physical Examination: Vitals: 08/10/24 0735 08/10/24 0800 08/10/24 0845 08/10/24 0900 BP: (!) 113/59 157/85 (!) 143/92 Pulse: (!) 123 100 (!) 101 Resp: (!) 26 (!) 26 Temp: SpO2: 98% 96% 96% General: Body mass index is 31.89 kg/m?.. Unhealthy appearing, habitus appropriate for age.In acute pain. HEENT: Normocephalic, atraumatic, PERRLA, EOM intact, Ears and nose withouy deformities or discharge, good dentition, moist mucosa, symmetrical palate. Neck: Supple with full ROM, no rigidity, no masses or tenderness, no JVD, no carotid bruits, trachea midline. Chest & Back: No spinal deformities, full ROM, breasts symmetrical, no lymphadenopathy. CV: RRR, no abnormal heaves or lifts, no additional heart sounds or murmurs. Lungs: Symmetrical chest wall expansion bilaterally. Clear to A&P. No rales, rhonchi, wheezes or rubs. Abd: Soft, non-tender, no guarding, no organomegaly, regular bowel sounds. Extremities: No peripheral edema, well perfused, no lesions. Neuro:Mental Status: Awake and alert; comprehension intact and following all commands. Oriented to self, place, time Speech: intact naming, repeatition, comprehension Cranial Nerves:I- Not tested. II- Pupils equal and reactive to light, visual ryan full to confrontation III, IV, - Extraocular movements intact without nystagmus. V- Normal sensation in V1-3 distributions. VII- Face symmetric. VIII- Gross hearing intact to finger rub bilaterally. IX, X- Normal palate elvation, no uvular deviation. XI- SCM and trapezius muscle intact XII- Tongue protrudes midline. Motor:Tone normal in all extremities. StrengthNeck Flexor 5 Extensors 5 Right Left Shoulder Abductors 5 5 Elbow Flexors 5 5 Extensors 5 5 Wrist Flexors 5 5 Extensors 5 5 Finger Flexors 5 5 Extensors 5 5 Ab/Abductors 5 5 Hip Flexors 4 4 Knee Flexors 4 4 Extensors 4 4 Ankle Dorsiflexor 4 4 Plantarflexors 4 4 Deep Tendon Reflexes: R L Brachioradialis 2+ 2+ Biceps 2+ 2+ Triceps 2+ 2+ Patellar 1+ 1+ Achilles 1+ 1+ Plantar response Down Down Coordination: No dysmetria on finger to nose Sensory: Sensation intact to light touch, decreased in bilateral lower extremities in a neuropathic pattern Involuntary Movement: No abnormal or extraneous movement. Gait: Deferred MRS:2- Slight disability-UNABLE to perform all activities but does not need assistance Diagnostic Data:Pertinent Labs : Lab Results Component Value Date WBC 8.32 08/10/2024 Hgb 12.1 08/10/2024 Hct 37.2 08/10/2024 Plt Count 421 08/10/2024 Lab ResultsComponent Value Date Sodium Lvl 144 08/10/2024 Potassium Lvl 3.6 08/10/2024 Chloride Lvl 111 (H) 08/10/2024 CO2 Lvl 21.1 08/10/2024 BUN <7 (L) 08/10/2024 Creatinine Lvl 0.59 08/10/2024 Glucose Lvl 109 (H) 08/10/2024 POC Glu 113 (H) 08/10/2024 Lab ResultsComponent Value Date Calcium Lvl 8.1 (L) 08/10/2024 Magnesium 1.74 08/10/2024 Phosphorus Lvl 3.2 08/10/2024 Lab ResultsComponent Value Date AST 16 08/10/2024 ALT 10 08/10/2024 Alkaline Phosphatase 99 08/10/2024 No results found for: "PTT", "PT", "INR"Lab Results Component Value Date UA Color Yellow 08/10/2024 UA Spec Grav 1.015 08/10/2024 UA pH 5.0 08/10/2024 UA Protein Negative 08/10/2024 UA Glucose Negative 08/10/2024 UA Ketones Negative 08/10/2024 UA Nitrite Negative 08/10/2024 UA Leuk Esterase Negative 08/10/2024 UA Bilirubin Negative 08/10/2024 UA Urobilinogen <=1.0 08/10/2024 Imaging:CT BRAIN WO IV CONTRAST Result Date: 08/10/2024 EXAM: CT BRAIN WITHOUT CONTRAST DATE: 08/10/2024 6:00 INDICATION: SDH stability scan COMPARISON: None. TECHNIQUE: Axial CT images of the brain were obtained. Sagittal and coronal reformats. IV contrast: None DLP: Refer to CT protocol form FINDINGS: Small right-sided parafalcine subdural hemorrhage with a focal hyperdensity, likely resenting a small subdural hematoma (series 900, image 12). Morton-white matter differentiation is predominantly maintained. No midline shift or brain herniation. Basal cisterns are patent. No hydrocephalus. The ventricles and sulci are mildly enlarged secondary to chronic brain parenchymal volume loss. Mild periventricular white matter hypoattenuation is nonspecific but likely represents chronic microvascular ischemic changes. The skull base, calvarium, and included facial bones are unremarkable. The paranasal sinuses are predominantly clear. IMPRESSION: * Small right-sided parafalcine subdural hemorrhage with a focal hyperdensity, likely resenting a small subdural hematoma. * Mild chronic microvascular changes. The Critical findings of subdural hemorrhage were communicated to and acknowledged by Dr. Colindres secure chat at 08/10/2024 6:42 by Roman Zendejas RES. This report was dictated by a Information Technology Audit Manager/Fellow/NOHELIA: Roman Zendejas RES 08/10/2024 6:43 This report was dictated by a Information Technology Audit Manager/Fellow/Physician Spring Encaser. I have personally reviewed the images as well as the interpretation and agree with the findings. Report finalized by: Roberto Marina MD 08/10/2024 8:52 No MRI head results found for the past 14 days No EEG results found for the past 14 days I performed [id number] diagnostic evaluation of this patient.I have reviewed the contents of the history and physical/consult note by the resident/fellow and agree with the above assessment and plan, and have performed edits as needed. I have reviewed relevant social/family/medication history and ROS. I have performed the MDM for this encounter. 54-year-old female with past medical history of epilepsy, coronary artery disease, heart failure with reduced ejection fraction on Depakote however noncompliant due to prohibitive cost. Patient not on generic form. Patient had a fall, striking her head resulting in a right subdural hemorrhage which has been stable on repeat CT head-neurosurgery following. Regarding seizure management, recommend switching to generic form (divalproex) 1000 mg twice daily and outpatient follow-up for management of seizures. Would also check for UA for UTI as this could reduce seizure threshold and patient complaining of urinary urgency. Patient also has lower back pain which is going on for a year associated with radicular symptoms, with benefit from MRI L-spine and T-spine to evaluate for neuroforaminal stenosis. This can be done outpatient. Loida FloresVascular Neurology/Neurohospitalist, [facility] [employer] Division Manager, [facility] ETEER ETEER ETEER ETEER [facility]ballNmjthua2767-05-44 15:10:22Pending Results Scheduled Orders Name Type Priority Associated Diagnoses Orde r Schedule ECG 12 lead (arrhythmia) ECG STAT Once for 1 Occur rences starting 08/10/2024 until 08/10/2024 CT brain wo IV contrast Imaging Routine Expected: 2024, Expires: 08/10/2025 Urine Culture Microbiology STAT Once (Lab ) for 1 Occurrences starting 08/10/2024 until 08/10/2024 Scheduled Referrals Name Type Priority Associated Diagnoses Orde r Schedule Ambulatory referral to Neurosurgery Outpatient Referral STAT Subdural hematoma (HCC) Expected: 08/10/2024 (Approximate), Expires: 08/10/2025 OP Referral to Primary Care Provider Outpatient Referral STAT Breakthrough seizure (CMS/HCC) (HCC) Subdural hematoma (HCC) Closed head injury, initial encounter Nonintractable epilepsy without status epilepticus, unspecified epilepsy type (HCC) Expected: 08/10/2024 (Approximate), Expires: 08/10/2025 Ambulatory referral to Neurology Outpatient Referral STAT Breakthrough seizure (CMS/HCC) (HCC) Expected: 08/10/2024 (Approximate), Expires: 08/10/2025 Health Maintenance Due Date Last Done Comments CT Colonography 1972 Colonoscopy 1972 Colorectal Cancer Screening 1972 FIT-DNA 1972 FIT 1972 FOBT 1972 Sigmoidoscopy 1972 Annual Physical 01/14/1975 Pneumococcal Vaccine: Pediatrics (0 to 5 Years) and At-Risk Patients (6 to 64 Years) (1 of 2 - PCV) 01/14/1978 Diabetes: Foot Exam 01/14/1982 Diabetes: Retinopathy Screening 01/14/1982 DTaP/Tdap/Td Vaccines (1 - Tdap) 01/14/1991 Diabetes: Urine Protein Screening 01/14/1991 Hepatitis B Vaccines (1 of 3 - 19+ 3-dose series) 01/14/1991 Zoster Vaccines (1 of 2) 01/14/1991 Pap Smear 01/14/1993 Cervical Cancer Screening 01/14/2002 HPV/Cotest 01/14/2002 Mammogram 2012 Influenza Vaccine (#1) 2024 Diabetes: Hemoglobin A1C 05/24/2024 024, 06/14/2023 Lipid Panel 01/09/2025 01/10/2024, 11/22/2023, 08/02/2022 HIB Vaccines Aged Out No longer eligi ble based on patient's age to complete this topic HPV Vaccines Aged Out No longer eligi ble based on patient's age to complete this topic Hepatitis A Vaccines Aged Out No long er eligible based on patient's age to complete this topic IPV Vaccines Aged Out No longer eligi ble based on patient's age to complete this topic Meningococcal Vaccine Aged Out No simone deysi eligible based on patient's age to complete this topic Rotavirus Vaccines Aged Out No longer eligible based on patient's age to complete this topic [facility]ballEznmjcd5891-09-09 15:10:22 Diagnosis Subdural hematoma (HCC) - Primary Subdural hemorrhage Breakthrough seizure (CMS/HC C) (HCC) Closed head injury, initial encounter Nonintractable epilepsy with out status epilepticus, unspecified epilepsy type (HCC) Acute cystitis with hematuri a Seizure (HCC) Other convulsions Subdural hemorrhage (HCC) Subdural hemorrhage [facility]ballMwbgrof9412-96-62 15:10:22 [facility]ballNxtuepo9094-67-25 06:02:36 [facility]ballRuwzhav7814-07-80 06:02:36* Imaging (Routine) - Pending Review Specialty Diagnoses / Procedures Referred By Justina t Referred To Contact Radiology Procedures CT external head System, Provider Not In Referral ID Status Reason Start Date Expiration Date V isits Requested Visits Authorized [id number] Pending Review 08/10/2024 02/06/2025 1 1 ETEER [facility] [id number] 06:02:36Upcoming Encounters Health Maintenance Due Date Last Done Comments CT Colonography 1972 Colonoscopy 1972 Colorectal Cancer Screening 1972 Diabetes: Hemoglobin A1C 1972 FIT-DNA 1972 FIT 1972 FOBT 1972 Sigmoidoscopy 1972 Annual Physical 01/14/1975 Pneumococcal Vaccine: Pediat rics (0 to 5 Years) and At-Risk Patients (6 to 64 Years) (1 of 2 - PCV) 01/14/1978 Diabetes: Foot Exam 01/14/1982 Diabetes: Retinopathy Screening 01/14/1982 DTaP/Tdap/Td Vaccines (1 - Tdap) 01/14/1991 Diabetes: Urine Protein Screening 01/14/1991 Hepatitis B Vaccines (1 of 3 - 19+ 3-dose series) 01/14/1991 Zoster Vaccines (1 of 2) 01/14/1991 Pap Smear 01/14/1993 Cervical Cancer Screening 01/14/2002 HPV/Cotest 01/14/2002 Mammogram 2012 Lipid Panel 08/02/2023 08/02/2022 Influenza Vaccine (#1) 2024 HIB Vaccines Aged Out No longer eligi ble based on patient's age to complete this topic HPV Vaccines Aged Out No longer eligi ble based on patient's age to complete this topic Hepatitis A Vaccines Aged Out No long er eligible based on patient's age to complete this topic IPV Vaccines Aged Out No longer eligi ble based on patient's age to complete this topic Meningococcal Vaccine Aged Out No simone deysi eligible based on patient's age to complete this topic Rotavirus Vaccines Aged Out No longer eligible based on patient's age to complete this topic [facility] [id number] 00:54:53 Summary: Discharge Images from the original [...] daughter, in no apparent distress, Alma Gould [place] [id number] 00:10:43 Report to Campbell CAMPOS. Ely Hernández [place] [id number] 22:25:58 Pt having seizure like activity as I walked in pt. Activity lasting about 40 seconds. Pt alert and able to answer questions immediately after activity. Yesenia Hightower [place] [id number] 20:44:51 Pt arrived via person with complaints of feeling like her heart failure was acting up and her pulse ox machine was reading 94% and Hr 61 at home which is low for her. Pt states she has had 6 seizures today. Was seen at [facility] and reports no test were performed and she was told it was all stress related. While waiting for triage pt daughter hollered out she was having a seizure. Pt was found on the ground, no seizure activity noted. No post ictal period. Pt was able to sit up and get into personal WC and was brought to 10. Pt reports she defecated on herself. Daughter states she hit her head. Pt complaining of lower back pain. Pt A&Ox4. Pt reports being out of meds for a month d/t financial issues. 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 Mireille Cardenas [place] [id number] 21:59:00 Associated Order(s): EKG-12 Lead ONCE Pre-Procedure Diagnose(s): Chest pain, unspecified type Post-Procedure Diagnose(s): Chest pain, unspecified type [facility] Emergency Department Note Patient Name: Heather Turner Date of : 1970 53 year old female Treatment Room: TX1/TX1 Primary Care Physician: Lb Lieberman Patient Escorted by: Family [5] Mode of Arrival: Personal means [1] EMS Treatment Prior to ED Arrival: BUSINESS UNIT DIRECTOR treatment comments: prescription meds Travel and Exposure [...] (chronic obstructive pulmonary disease) Diverticulitis Epilepsy Hypertension CA (myocardial infarction) 07/20/2007 Slipped disc Stomach cancer [...] 08/14/2015 Surgeon: Luis Jones Jr., DPM; [place] [facility] [place] Review of Systems: Review of Systems [...] 0.0 0.0 - 10.0 /100 WBCs NRBC x103<0.01 10*3/?L GRAN MAT (NEUT) % 60.6 % IMM GRAN % 1.40 % LYMPH % 26.9 % MONO % 8.7 % EOS % 1.8 % BASO % 0.6 % GRAN MAT x103(ANC) 5.14 1.88 - 7.09 10*3/uL IMM GRAN x1030.12 (*) 0.00 - 0.06 10*3/uL LYMPH x1032.28 1.32 - 3.29 10*3/uL MONO x1030.74 0.33 - 0.92 10*3/uL EOS x1030.15 0.03 - 0.39 10*3/uL BASO x1030.05 0.01 - 0.07 10*3/uL COMP. METABOLIC PANEL (54748) - Abnormal NA 140 135 - 145 [...] VW Cbc with Diff Comp. Metabolic Panel (96848) Troponin I Orders Placed This Encounter Medications morpHINE (4 mg/mL) injection 6 mg ondansetron (ZOFRAN (PF)) injection 8 mg LORazepam (ATIVAN) tablet 1 mg First Provider Eval: ED Events Date/Time Event User Comments 01/12/242209 Medical Screening Begins AYDIN ELIZONDO, RADHA Pillai -- 01/12/24 2210 First Provider Evaluation RADHA WYATT MD -- ED COURSE Diagnosis/Impression as of 01/12/24 2342 Chest pain, unspecified type Procedures: EKG-12 Lead ONCE Date/Time: 01/12/2024 10:56 PM Performed by: Radha Wyatt MD Authorized by: Radha Wyatt MD ECG interpreted by ED Physician in the absence of a production hardener: yes Previous ECG: Previous ECG: Unavailable Interpretation: [...] Electronically signed by: Radha Wyatt MD 01/12/24 9480 [facility]2024-06-25 16:22:00 TRANSITIONAL CARE MANAGEMENT ASSESSMENT 01/12/2024 Heather Turner [id number] Heather Turner is a 53 year old /White female was admitted on 01/09/24 to [facility] ICU. She was discharged on 01/10/24 with discharge disposition of HR- Routine Discharge. Admitting Physician: Darrick Altamirano Discharge Diagnosis: Hypotension No linked episodes TCM Hww-vsub-gu-face outreach documentation: Care Transition CM made f/u call to pt post-discharge x2. No response and call went to voicemail. CM left a discreet message with purpose of call and CM's call back information. Discharge Assessment Chart Assessed: 01/12/24 TCM Outreach Completed: 01/12/24 Future Appointments: Veronique Carrillo [facility]2949-41-79 11:40:32 Care Transition CM made f/u call to pt post-discharge. No response and call went to voicemail. CM left a discreet message with purpose of call and CM's call back information. Veronique Carrillo RN, BSN [employer]-Transitions of Care [phone] [facility] HospitalNiegtm3954-54-53 15:32:40 Problem: Discharge Planning Goal: Adequate for [...] Addis Batse RN Outcome: Adequate for discharge Goal: Prevention [...] RN Outcome: Adequate for discharge Addis Bates [facility] HospitalAojfwh5402-08-51 15:32:28 Problem: Discharge Planning Goal: Adequate for [...] in pain sensation Outcome: Adequate for discharge [facility] HospitalDdtmhy9167-44-86 14:55:21 Problem: Discharge Planning Goal: Adequate for [...] sensation Outcome: Adequate for discharge Wayne Merrill RNCleveland Clinic Luther[facility] HospitalRoodgu5836-51-76 01:16:51 Problem: Discharge Planning Goal: Adequate for [...] sensation Outcome: Progressing as expected Alexandria Walsh RNCleveland [facility] Luther[facility] HospitalRoyjem1114-32-28 22:42:54 Patient admitted to IMU for diagnosis of pneumonia, elevated D-dimer, hypotension, chest pain. Patient agrees to admission, discussed plan of care with patient and family. Patient is awake, alert, oriented, resp reg unlabored, color appropriate for race, PIV intact x2. No adverse reaction to medications administered while in ED. Belongings with patient to unit. Report to BETH Reyez. [place] 45969-06-22 22:35:43 Report given to BETH Reyez IMU [place] [address]69-06-22 20:04:51 Patent resting Sheri Harding [place] 731634-06-22 16:09:08 Patient states: "I started having chest pain this morning" Reports history of CA, blood clots in heart, lung and legs, CHF. Malinda Andres [place] [id number] 16:07:00 Associated Order(s): EKG-12 Lead ROUTINE ONCE Pre-Procedure Diagnose(s): Chest pain, unspecified type Post-Procedure Diagnose(s): Chest pain, unspecified type [facility] Emergency Department Note Patient Name: Heather Turner Date of : 1970 53 year old female Treatment Room: OR2/OR2 Primary Care Physician: Lb Lieberman Patient Escorted [...] SOB that started this morning. Hx of CA, PE and CHF. She rated her pain [...] vomiting or diarrhea. History provided by: Patient historic interpreter used: No Past Medical History/Immunizations: Past Medical History: Diagnosis Date Anxiety Extreme Bipolar disorder Breast pain 09/18/2015 Cauda equina compression 11/21/2023 diagnosed 08/2023 Congestive heart failure 2021 COPD (chronic obstructive pulmonary disease) Diverticulitis Epilepsy Hypertension CA (myocardial infarction) 07/20/2007 Slipped disc Stomach cancer [...] 08/14/2015 Surgeon: Luis Jones Jr., DPM; [place] [facility] [place] Review of Systems: Review of Systems [...] TROPONIN I N-TERMINAL PRO-BNP COMP. METABOLIC PANEL (78458) D-DIMER Orders Placed This Encounter Medications aspirin [...] ED Physician in the absence of a production hardener: yes Previous ECG: Previous ECG: Compared to [...] SOB that started this morning. Hx of CA, PE and CHF. She rated her pain [...] SOB that started this morning. Hx of CA, PE and CHF. She rated her pain [...] Castillo NP 01/09/242004 Associated attestation - Siddharth uBll MD - 01/10/2024 12:21 AM CDT Addendum I was personally available for consultation in the Emergency Department during this encounter and patient evaluation by RUBY Berman MD, [facility] Emergency Medicine [facility] HospitalVeplxt0609-71-23 10:18:53 Care Transitions Nurse CM made f/u call to patient post-discharge. No answer, call went to voicemail. CM left discreet message with CM's call back information. CM will try again at a later time. MANSOOR Lindsey, RN, CCRN [employer], Transitions of Care [email or web address] Jodi Berg RNUTMB - Hflgwm9013-23-49 10:45:32 Problem: Respiratory Function - Impaired Goal: [...] communication Outcome: Adequate for discharge Delaney Laird [facility] HospitalZgwyum0253-75-84 05:41:00 Problem: Respiratory Function - Impaired Goal: [...] Goal: Effective communication Outcome: Progressing as expected ount includes the [facility]Qwsozc3388-25-58 18:20:42 Patient admitted to [facility] ADC 2215 for diagnosis of shortness of breath. Patient agrees to admission, discussed plan of care with patient and family. Patient is awake, A&Ox4, RR even and unlabored on RA. Color appropriate for race. PIV intact x1. No adverse reaction to medications administered while in ED. Belongings with patient to unit. [facility]2024-05-27 18:19:06 Nurse Report Report given to BETH Romero. Chief complaint, assessment findings, infusion verify and orders reviewed. Plan of care discussed with patient and both nurses. Patient/family members verbalized understanding. Lisette Murphy RN [facility]2024-05-27 14:54:55 Report given to Amy Murphy RN. Updated on patient's medical condition, history of present condition and plan of care. [facility] Leo Hyde [facility] HospitalUtvigb5445-87-14 13:30:46 Patient arrived in wheelchair with c/o shortness of breath starting this morning. Patient attempted to try her albuterol at home with no success. Patient attempt to feel better with husbands oxygen. Started to complaining of reproducible chest pain approximately 2 hours ago. Hx: CHF [facility] Lisette Murphy [facility] HospitalQrkuic1378-79-67 13:24:00 AdmissionCare Guideline: Chest Pain - OBS, [...] care. Admission[facility] documentation entered by: Mj Bryan [facility] [employer], edition, Copyright ? 2022 [facility] [email or web address] [facility] All Rights Reserved. [id number]:48:23-05:00 T [facility]856-93-37 18:26:32 Pt requesting to leave AMA, patient educated on risks, and benefits of leaving AMA. Patient continues to request to leave AMA. CCU notified of patients request. Patient educated on risk and benefits. AMA paperwork signed by patient. Duong Tello [facility]ajmzv8523-14-41 14:42:13 Problem: Respiratory Function - Impaired Goal: Adequate oxygenation Outcome: Progressing as expected Goal: Adequate work of breathing Outcome: Progressing as expected Problem: Falls, Risk of Goal: Absence of falls Outcome: Progressing as expected T [facility] HospitalBvkpdp0313-67-37 17:16:35 Report to Rad with EM, care transferred Sheri Tompkins [facility] HospitalKtoetk8011-63-43 16:47:06 Nurse Report Report given to Duong CAMPOS at [facility], Chief complaint, assessment findings, infusion verify and orders reviewed. Sheri Tompkins RN T [place] [id number] 16:40:00 Pt tolerating bipap, updated on status, skinw/d [place] 45969-05-15 16:09:00 Placed on bedpan [facility] HospitalRginjh8729-52-80 16:08:24 Report to Turner CAMPOS. 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 Selina Llanes [facility] HospitalBawpdi4307-58-15 12:56:00 Associated Order(s): EKG-12 Lead ROUTINE ONCE Pre-Procedure Diagnose(s): Other chest pain Post-Procedure Diagnose(s): Other chest pain [facility] Emergency Department Note Patient Name: Heather Turner Date of : 1970 53 year old female Treatment Room: OR1/OR1 Primary Care Physician: PATIENT DOES NOT HAVE A PCP Patient Escorted by: Family [5] Mode of Arrival: Personal means [1] EMS Treatment Prior to ED Arrival: BUSINESS UNIT DIRECTOR treatment: Medication (comment) BUSINESS UNIT DIRECTOR treatment comments: tylenol PM X2 at 0830, [...] began today. PT was recently admitted to [facility] ICU for PE, chf and cardiogenic [...] (chronic obstructive pulmonary disease) Diverticulitis Epilepsy Hypertension CA (myocardial infarction) 07/20/2007 Slipped disc Stomach cancer [...] 08/14/2015 Surgeon: Luis Jones Jr., DPM; Location: [facility] OR [facility] TONSILLECTOMY Review of Systems: Review of [...] 0.0 0.0 - 10.0 /100 WBCs NRBC x103<0.01 10*3/?L GRAN MAT (NEUT) % 73.5 % IMM GRAN % 1.70 % LYMPH % 14.9 % MONO % 8.3 % EOS % 1.2 % BASO % 0.4 % GRAN MAT x103(ANC) 8.05 (*) 1.88 - 7.09 10*3/uL IMM GRAN x1030.19 (*) 0.00 - 0.06 10*3/uL LYMPH x1031.63 1.32 - 3.29 10*3/uL MONO x1030.91 0.33 - 0.92 10*3/uL EOS x1030.13 0.03 - 0.39 10*3/uL BASO x1030.04 0.01 - 0.07 10*3/uL COMP. METABOLIC PANEL (11845) - Abnormal NA 138 135 - 145 [...] VW Cbc with Diff Comp. Metabolic Panel (86511) Troponin I N-Terminal Pro-Bnp BLOOD CULTURE SCREEN [...] interpretation with external provider(s): Dr. Simental of [facility] cardiology accepting to CCU. Risk Prescription [...] signed by: Connor Renee MD 12/02/23 1632 [facility]2024-05-14 10:36:39 TRANSITIONAL CARE MANAGEMENT ASSESSMENT 12/01/2023 Heather Turner [id number] Heather Turner is a 53 year old /White female was admitted on 11/21/[address] She was discharged on 11/28/23 with discharge disposition of HR- Routine Discharge. Admitting Physician: Cr Altamirano Discharge Diagnosis: Decompensated acute on chronic HFrEF 15-20% EF Cardiogenic shock NSTEMI 2/2 stress induced cardiomyopathy 2/2 PE and drug use No linked episodes TCM Yme-lwja-yc-face outreach documentation: Discharge Assessment Chart Assessed: 12/01/23 [...] cost of $44. 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 to news operations manager .) Do you know how to take your medications?: Yes Supplies Did you receive applicable home medical supplies/equipment?: N/A Follow Up Appointment Has a follow up appointment been scheduled?: No May I assist with scheduling this appointment?: Patient has outside PCP (Patient stated she was told that her providers at at [facility] and will not be following [facility]) Do you have any questions about [...] stated she has to follow up with [facility] Do you understand your discharge instructions? Yes [...] activity): as tolerated Were you able to cone picker all of your medications? No unable [...] N/A Ensure they have contact info for [employer]: na Have you received your DME? N/A [...] go to the emergency room Madeline Mckinley RNUTMB - Nrflxx8523-59-74 10:41:04 TRANSITIONAL CARE MANAGEMENT ASSESSMENT 11/30/2023 Heather Turner [id number] Heather Turner is a 53 year old /White female was admitted on 11/21/[address] She was discharged on 11/28/23 with discharge disposition of HR- Routine Discharge. Admitting Physician: Cr Altamirano Discharge Diagnosis: Decompensated acute on chronic HFrEF 15-20% EF Cardiogenic shock NSTEMI 2/2 stress induced cardiomyopathy 2/2 PE and drug use No linked episodes TCM Yia-rxtb-fm-face outreach documentation: Transition CM attempted to contact patient for post discharge follow up. CM left a message with male friend contact as he stated patient was asleep and not available. Future Appointments: Madeline Mckinley [facility] HospitalCgojwz0178-32-99 15:39:19 Problem: Bleeding, Risk of Goal: Absence [...] breakdown Outcome: Adequate for discharge Aliyah Francisco [facility] HospitalDsusjx9933-02-21 14:00:02 Problem: Discharge Planning Goal: Adequate for discharge 11/27/2023 1359 by Merlyn Ndiaye RN Outcome: Progressing as expected 11/27/2023 0951 by Merlyn Ndiaye, BETH Outcome: Progressing as expected Problem: Bleeding, Risk of Goal: Absence of impaired coagulation signs and symptoms 11/27/2023 1359 by Merlyn Ndiaye RN Outcome: Progressing as expected 11/27/2023950 by Merlyn Ndiaye, RN Outcome: Progressing as expected Goal: Absence of active bleeding 11/27/2023 1359 by Merlyn Ndiaye, BETH Outcome: Progressing as expected 11/27/2023 09 by Merlyn Ndiaye, RN Outcome: Progressing as expected Problem: Activity [...] RN Outcome: Progressing as expected Merlyn Ndiaye [facility] HospitalLlmhzm2952-65-70 09:51:54 Problem: Bleeding, Risk of Goal: Absence [...] new skin breakdown Outcome: Progressing as expected [facility]2024-05-10 05:16:42 Problem: Bleeding, Risk of Goal: Absence [...] new skin breakdown Outcome: Progressing as expected [facility] Mariely Wallace [facility] HospitalJhacrf9081-68-98 17:12:17 Problem: Bleeding, Risk of Goal: Absence [...] new skin breakdown Outcome: Progressing as expected [facility]2024-05-08 05:27:41 Problem: Bleeding, Risk of Goal: Absence [...] breakdown Outcome: Progressing as expected Luda Vee [facility] HospitalJizdmy4128-07-56 18:52:11 Summary: [facility] Note Spoke with Rich Spencer from [facility] at 18:12. Case #[id number]. T Brice Jackson [facility] HospitalGswufm9314-58-97 10:16:03 Problem: Bleeding, Risk of Goal: Absence [...] new skin breakdown Outcome: Progressing as expected [facility] - Mcsziq9161-14-06 10:41:53 Problem: Bleeding, Risk of Goal: Absence [...] Brice Jackson RN Outcome: Progressing as expected [facility] - Kwkowp4587-26-56 10:40:04 Problem: Bleeding, Risk of Goal: Absence [...] new skin breakdown Outcome: Progressing as expected [facility] HospitalTgqwys0628-09-33 05:54:04 Problem: Bleeding, Risk of Goal: Absence [...] Outcome: Progressing as expected T Hamlet Osullivan [facility] HospitalFkhynh5032-33-15 23:58:07 Patient transferred to [place] for diagnosis of chest pain, NSTEMI, COPD exacerbation Patient agrees to transfer/admit plan and verbalized understanding of plan of care, family aware of plan Patient awake alert, oriented, resp reg unlabored, skin w/d PIV patent, no s/s infiltration noted, heparin infusing No adverse reaction to medications given while in ED. Report given to [facility] EMS personnel Nery Orellana [facility] HospitalCenkor6754-13-49 23:55:09 Nurse Report Report given to BETH Zuleta in [place]. Chief complaint, assessment findings, infusion verify and orders reviewed. Plan of care discussed with nurse. Nery Orellana RN [facility]2024-05-04 23:18:14 Associated Order(s): Critical Care Critical Care [...] separately billable procedures and treating other patients. [facility]2024-05-04 23:11:13 Pt c/o difficulty breathing at this time. Pt placed on 2L O2 NC for comfort. TNEY Diehl [facility]2024-05-04 21:15:59 Summary: Triage CC: patient family states [...] self Appears in mild distress Alma Gould [facility] - Gzriao5649-93-32 21:07:00 EMERGENCY DEPARTMENT ENCOUNTER [facility] Patient Name: Heather Turner Date of : 1970 53 year old Exam Room:OR2/[facility] Primary Care Physician: PATIENT DOES NOT HAVE A PCP Pre- Hospital Patient Escorted by: Family [5] Mode of Arrival: Personal means [1] EMS Treatment Prior to ED Arrival: BUSINESS UNIT DIRECTOR treatment: None ED Events Date/Time Event User [...] (chronic obstructive pulmonary disease) Diverticulitis Epilepsy Hypertension CA (myocardial infarction) 07/20/2007 Slipped disc Stomach cancer Substance abuse Marijuana daily-for anxiety Tetanus received in last 5 years: Unknown Childhood immunizations: Up-to-date Past Surgical History Past Surgical History: Procedure Laterality Date ANTERIOR CERVICAL FUSION CHOLECYSTECTOMY HAND/FINGER SURGERY UNLISTED Bilateral 3 L hand, 3 R hand METATARSAL OSTEOTOMY Right 08/14/2015 Surgeon: Luis Jones Jr., DPM; [place] [facility] TONSILLECTOMY Allergies Allergies Allergen Reactions Green Tea [...] 3.7 0.0 - 10.0 /100 WBCs NRBC x1030.48 10*3/?L SEG % 76 33 - 76 % BAND % 5 (*) 0 - 1 % LYMPH % 13 (*) 14 - 54 % MONO % 6 (*) 0 - 4 % ANC 10.62 (*) 1.88 - 7.09 10*3/uL ELLIPTO/OVAL 2+ (*) (none) POLYCHROMASIA 2+ 2+ HYPERSEG NEUTS Present (*) (none) PLT ESTIMATE Normal Normal COMP. METABOLIC PANEL (89516) - Abnormal NA 134 (*) 135 - [...] VW CBC WITH DIFF COMP. METABOLIC PANEL (43105) AMYLASE TROPONIN I N-TERMINAL PRO-BNP URINALYSIS URINE [...] exacerbation. She will be transferred down to [place] to the [place] team in the cardiology department for further [...] on file Megan Rondon Jr., MD Clinical [employer] Manager [facility] Emergency Department [employer] is used frequently and may produce errors. Promptly contact for obvious discrepancies. Megan Rondon MD 11/21/23 3985 [facility] - Anztwy6960-03-55 11:34:02 Chief Complaint Patient presents with Follow-up Hospitalization Krissy Cannon LVN [facility]2024-01-24 16:08:34 Bryan spoke to patient and patient decided to leave AMA. AMA form signed by patient and attached to paperwork. Patient in stable condition with AMA. IV line removed and patient was assisted onto wheelchair and moved to the [facility]. Patient called her prior to leaving room and will be picking up patient. ME Dumont [facility] HospitalYwmhdq2950-90-91 15:56:21 Patient requesting to talk to provider - provider aware. Patient refused tylenol as she said medication does not improve her condition and she does not want to throw it up. Patient also refusing blood draw at this time. [facility]2024-01-24 14:50:00 Patient's name and verified with patient. [...] (chronic obstructive pulmonary disease) Diverticulitis Epilepsy Hypertension CA (myocardial infarction) 07/20/2007 Slipped disc Stomach cancer Substance abuse Marijuana daily-for anxiety Allergies noted in chart. Vitals obtained. Assessment performed. IV in place and patent. Placed on continuous spo2/cardiac monitoring, HR 106 Bed low and locked, secured with two rails, call light within reach. Belongings at bedside. Patient aware of plan of care. Steph Dumont RN [place] [address]278-01-24 14:17:22 Patient had witnessed seizure like activity. Bryan, at bedside. Patient stopped seizure activity and had no postictal phase. Patient coherent, alert and oriented/answering all questions appropriately. [place] 677794-01-24 13:45:33 Patient here for chest pain that started approximately 1 hour ago. Patient had seizure like activity in the vehicle while attempting to get patient out of the car, patient had no post ictal phase. Patient c/o substernal chest pain and jaw pain. [facility] Jasvir Reaves [place] [id number] 13:42:00 [facility] Emergency Department Note Patient Name: Heather Turner Date of : 1970 53 year old female Treatment Room: OR3/OR3 Primary Care Physician: PATIENT DOES NOT HAVE A PCP Patient Escorted by: Family [5] Mode of Arrival: Personal means [1] EMS Treatment Prior to ED Arrival: BUSINESS UNIT DIRECTOR treatment: None Travel and Exposure Screening: Symptoms [...] (chronic obstructive pulmonary disease) Diverticulitis Epilepsy Hypertension CA (myocardial infarction) 07/20/2007 Slipped disc Stomach cancer [...] 08/14/2015 Surgeon: Luis Jones Jr., ESTHER; Location: [facility] OR [facility] TONSILLECTOMY Review of Systems: Review of [...] 0.0 0.0 - 10.0 /100 WBCs NRBC x103<0.01 10*3/?L GRAN MAT (NEUT) % 74.0 % IMM GRAN % 0.40 % LYMPH % 14.5 % MONO % 8.1 % EOS % 2.0 % BASO % 1.0 % GRAN MAT x103(ANC) 6.19 1.88 - 7.09 10*3/uL IMM GRAN x1030.03 0.00 - 0.06 10*3/uL LYMPH x1031.21 (*) 1.32 - 3.29 10*3/uL MONO x1030.68 0.33 - 0.92 10*3/uL EOS x1030.17 0.03 - 0.39 10*3/uL BASO x1030.08 (*) 0.01 - 0.07 10*3/uL COMP. METABOLIC PANEL (27667) - Abnormal NA 140 135 - 145 [...] Procedures Cbc with Diff Comp. Metabolic Panel (37403) Urinalysis Lactic Acid Whole Blood Troponin I [...] for follow-up Yehuda Arcos MD Specialty: PN-NEUROLOGY [facility] [address] [place] [id number] [facility]-Emergency Department Specialty: Emergency Medicine [address] [place] [id number] Instructions: If symptoms worsen as documented in the discharge Electronically signed by: Mj Bryan DO 08/12/23 1605 Mj Bryan DO 08/12/23 1605 [facility]
[2024-09-09 21:04] LABS: Absolute Basophils 0.1 K/uL (0-0.5); Absolute Eosinophils 0.1 K/uL (0-0.5); Absolute Lymphocytes (CBC) 2.3 K/uL (0.7-4.9); Absolute Monocytes 0.3 K/uL (0.1-1.3); Absolute Neutrophil 3.6 K/uL (1.8-8.0); Basophils % 1.5 % (0-1.3); Eosinophils % 1.2 % (0-4.4); Hematocrit 43.4 % (36.0-45.0); Lymphocytes % 35.7 % (15.3-44.8); MCH 28.5 pg (27.0-35.0); MCHC 32.4 g/dL (32.0-36.0); Monocytes % 5.2 % (3.3-12.3); Neutrophils % 56.4 % (41.7-73.7); Nucleated Red Blood Cells % 0.2 % (0-0); Platelets 476 thou/uL (152-406); RBC Red Blood Cell Count 4.93 M/uL (3.86-4.86); Red Cell Distribution Width 18.4 % (12.1-15.2)
[2024-09-09] MEDS ORDERED: VALPROATE NA 500 MG/5 ML INJ IV ONE (21:07)
[2024-09-09] MEDS ORDERED: NA CHLORIDE 0.9% 100 ML ONE (21:07)
[2024-09-09 21:20] LABS: Albumin 3.5 g/dL (3.4-5.0); Albumin/Globulin Ratio 0.9 (1.1-1.8); Anion Gap 15.5 mEq/L (5.0-15.0); Bilirubin Total 0.2 mg/dL (0.2-1.0); Globulin 4.1 g/dL (2.3-3.5); Potassium 3.5 mEq/L (3.5-5.1); Protein, Total 7.6 g/dL (6.4-8.2)
--- NOTE | 2024-09-09 23:22 | ER ---
Nurse's Notes [facility] Name: Heather Coon Age: 54 yrs Sex: Female : 1970 Arrival Date: 09/09/2024 Time: 20:24 Bed 6 Private MD: Diagnosis: Breakthrough seizure Presentation: 09/09 20:25 Chief complaint: EMS states: 5 witnessed seizures with us lasting 5-15 secs, no real bm8 post ictal state. denies pain at this time. 20:25 Coronavirus screen: At this time, the client does not indicate any symptoms associated bm8 with coronavirus-19. Ebola Screen: Patient negative for fever greater than or equal to 101.5 degrees Fahrenheit, and additional compatible Ebola Virus Disease symptoms Patient denies exposure to infectious person. Patient denies travel to an Ebola-affected area in the 21 days before illness onset. No symptoms or risks identified at this time. Initial Sepsis Screen: Does the patient meet any 2 criteria? No. Patient's initial sepsis screen is negative. Does the patient have a suspected source of infection? No. Patient's initial sepsis screen is negative. Risk Assessment: Do you want to hurt yourself or someone else? Patient reports no desire to harm self or others. Onset of symptoms is unknown. 20:25 Method Of Arrival: EMS: [facility] bm8 20:25 Acuity: ANDER 2 bm8 20:25 Care prior to arrival: Medication(s) given: 5 mg versed IN. bm8 Triage Assessment: 20:25 General: Appears in no apparent distress. comfortable, Behavior is calm, cooperative, bm8 appropriate for age. Pain: Denies pain. EENT: No deficits noted. No signs and/or symptoms were reported regarding the EENT system. Neuro: Level of Consciousness is awake, alert, obeys commands, Oriented to person, place, time, situation, Appropriate for age Reports seizures. Seizure activity noted at this time. reported prior to arrival. Type of seizure: tonic-clonic seizure. Seizure lasted approximately 1 minutes. Cardiovascular: Denies chest pain, Heart tones S1 S2 present Capillary refill < 3 seconds in bilateral fingers toes Patient's skin is warm and dry. Respiratory: Airway is patent Respiratory effort is even, unlabored, Respiratory pattern is regular, symmetrical, Breath sounds are clear bilaterally. GI: No signs and/or symptoms were reported involving the gastrointestinal system. : No signs and/or symptoms were reported regarding the genitourinary system. Derm: No signs and/or symptoms reported regarding the dermatologic system. Musculoskeletal: No signs and/or symptoms reported regarding the musculoskeletal system. [employer]: 20:25 LMP 09/09/2024, unknown bm8 Historical: - Allergies: 20:40 fluoxetine; bm8 20:40 Green Tea; bm8 20:40 Keppra; not an allergy; bm8 - Home Meds: 20:40 Unable to obtain [Active]; bm8 - PMHx: 20:40 Anxiety; Arthritis; Bipolar disorder; Cancer-Cervical; Chronic obstructive lung bm8 disease; Chronic pain; Congestive heart failure; Depression; Diverticulitis; Herniated Back Disc; Hypertension; intestinal mass; Myocardial infarction; pt reports hx of seizures; Spastic Muscles; stroke; - Immunization history:: Adult Immunizations up to date. - Infectious Disease History:: Denies. - Social history:: Smoking status: Patient reports the use of cigarette tobacco products, Patient uses alcohol, street drugs, marijuana. - Family history:: not pertinent. Screenin:45 [facility] ED Fall Risk Assessment (Adult) History of falling in the last 3 months, bm8 including since admission Yes- physiologic fall (2 pts) Confusion or Disorientation No (0 pts) Intoxicated or Sedated Yes (3 pts) Impaired Gait Yes (1 pt) Mobility Assist Device Used No (0 pt) Altered Elimination Yes (1 pt) Score/Fall Risk Level 3 or more points = High Risk Oriented to surroundings, Maintained a safe environment, Educated pt \T\ family on fall prevention, incl call for assistance when getting out of bed, Assessed \T\ reinforced patient's understanding of fall precautions, Hourly rounding (assess needs \T\ fall precautionary measures) done, Used ambulatory aids as needed (educated on \T\ assisted with), Used gait belt as appropriate. Abuse screen: Denies threats or abuse. Nutritional screening: No deficits noted. Tuberculosis screening: No symptoms or risk factors identified. Assessment: 20:45 Reassessment: see triage assessment. bm8 22:29 Reassessment: Patient appears in no apparent distress at this time. Patient and/or bm8 family updated on plan of care and expected duration. Pain level reassessed. Patient is alert, oriented x 3, equal unlabored respirations, skin warm/dry/pink. Patient denies pain at this time. Patient states feeling better. Patient states symptoms have improved. General: Appears in no apparent distress. comfortable, Behavior is cooperative, appropriate for age, anxious. Pain: Denies pain. Neuro: No deficits noted. Level of Consciousness is awake, alert, obeys commands, Oriented to person, place, time, situation, Appropriate for age. Cardiovascular: Denies chest pain, Capillary refill < 3 seconds in bilateral fingers Patient's skin is warm and dry. Respiratory: Airway is patent Respiratory effort is even, unlabored, Respiratory pattern is regular, symmetrical, Breath sounds are clear bilaterally. GI: No signs and/or symptoms were reported involving the gastrointestinal system. : No signs and/or symptoms were reported regarding the genitourinary system. EENT: No signs and/or symptoms were reported regarding the EENT system. Derm: No signs and/or symptoms reported regarding the dermatologic system. Musculoskeletal: No signs and/or symptoms reported regarding the musculoskeletal system. 23:34 Reassessment: Patient appears in no apparent distress at this time. Patient and/or bm8 family updated on plan of care and expected duration. Pain level reassessed. Patient is alert, oriented x 3, equal unlabored respirations, skin warm/dry/pink. Patient denies pain at this time. Patient states feeling better. Patient states symptoms have improved. Vital Signs: 20:25 BP 104 / 89; Pulse 121; Resp 18; Temp 98.7; Pulse Ox 98% ; Weight 77.11 kg; Height 5 bm8 ft. 3 in. ; Pain 0/10; 22:29 BP 128 / 75; Pulse 111; Resp 18; Temp 98.7; Pulse Ox 99% ; Pain 0/10; bm8 23:34 BP 127 / 84; Pulse 100; Resp 18; Temp 98.6; Pulse Ox 100% ; Pain 0/10; bm8 20:25 Body Mass Index 30.11 (77.11 kg, 160.02 cm) bm8 20:25 Pain Scale: Adult bm8 22:29 Pain Scale: Adult bm8 23:34 Pain Scale: Adult bm8 [place] Coma Score: 20:25 Eye Response: spontaneous(4). Motor Response: obeys commands(6). Verbal Response: bm8 oriented(5). Total: 15. 22:29 Eye Response: spontaneous(4). Motor Response: obeys commands(6). Verbal Response: bm8 oriented(5). Total: 15. 23:34 Eye Response: spontaneous(4). Motor Response: obeys commands(6). Verbal Response: bm8 oriented(5). Total: 15. ED Course: 20:25 Patient arrived in ED. [email or web address] 20:25 Gus Canela MD is Attending Physician. rt 20:25 Arm band placed on right wrist. bm8 20:32 Donnell Agrawal, RN is Primary Nurse. bm8 20:40 Triage completed. bm8 20:45 Patient has correct armband on for positive identification. Placed in gown. Bed in low bm8 position. Call light in reach. Side rails up X 1. Seizure precautions initiated. Client placed on continuous cardiac and pulse oximetry monitoring. NIBP monitoring applied. over short and damage clerk on. Pulse ox on. NIBP on. Door closed. Noise minimized. Warm blanket given. Pillow given. Verbal reassurance given. Head of bed elevated. 20:45 No provider procedures requiring assistance completed. Initial lab(s) drawn, by , teodoro sent to lab. EKG done, by ED staff, reviewed by Gus Canela MD. Inserted saline lock: 20 gauge in right wrist, using aseptic technique. Blood collected. Flushed with 10 mL NS. 23:34 Provided Education on: post er care. bm8 23:34 IV discontinued, intact, bleeding controlled, No redness/swelling at site. Pressure bm8 dressing applied. Administered Medications: 20:38 Drug: Valproic Acid PO 500 mg PO once Route: PO; bm8 22:31 Follow up: Response: No adverse reaction bm8 22:34 Follow up: Response: No adverse reaction bm8 22:00 Drug: Valproic Acid IV 500 mg IV at calculated rate once over 60 mins; (mix in 100 mL bm8 NS) Route: IV; Rate: calculated rate; Infused Over: 60 mins; Site: right wrist; 23:04 Follow up: Response: No adverse reaction; IV Status: Completed infusion; IV Intake: bm8 100ml Medication: 20:45 VIS not applicable for this client. bm8 Intake: 23:04 IV: 100ml; Total: 100ml. bm8 Outcome: 23:22 Discharge ordered by . rt 23:34 Discharged to home via wheelchair, bm8 23:34 Condition: stable 23:34 Discharge instructions given to patient, Instructed on discharge instructions, follow up and referral plans. no drinking with medication, no driving heavy equipment, medication usage, safety practices, Demonstrated understanding of instructions, follow-up care, medications, 23:36 Patient left the ED. bm8 Signatures: Yovana Godoy [email or web address] Gus Canela MD MD rt Donnell Agrawal RN RN bm8 Corrections: (The following items were deleted from the chart) 20:45 20:40 General: Appears in no apparent distress. comfortable, Behavior is calm, bm8 cooperative, appropriate for age, bm8 20:45 20:40 Pain: Denies pain. bm8 bm8 20:45 20:40 EENT: No deficits noted. No signs and/or symptoms were reported regarding the bm8 EENT system. bm8 20:45 20:40 Neuro: Level of Consciousness is awake, alert, obeys commands, Oriented to bm8 person, place, time, situation, Appropriate for age Reports seizures. Seizure activity noted at this time. reported prior to arrival. Type of seizure: tonic-clonic seizure. Seizure lasted approximately 1 minutes. bm8 20:45 20:40 Cardiovascular: Denies chest pain, Heart tones S1 S2 present Capillary refill < 3 bm8 seconds in bilateral fingers toes Patient's skin is warm and dry. bm8 20:45 20:40 Respiratory: Airway is patent Respiratory effort is even, unlabored, Respiratory bm8 pattern is regular, symmetrical, Breath sounds are clear bilaterally. bm8 20:45 20:40 GI: No signs and/or symptoms were reported involving the gastrointestinal system. bm8 bm8 20:45 20:40 : No signs and/or symptoms were reported regarding the genitourinary system. [id number] 20:45 20:40 Derm: No signs and/or symptoms reported regarding the dermatologic system. bm8 bm8 20:45 20:40 Musculoskeletal: No signs and/or symptoms reported regarding the musculoskeletal bm8 system. bm8 20:45 20:40 GCS: 15, bm8 bm8
--- NOTE | 2024-09-09 23:22 | EDPHYS ---
Physician Documentation [facility] Name: Heather Coon Age: 54 yrs Sex: Female : 1970 Arrival Date: 09/09/2024 Time: 20:24 Bed 6 Private MD: ED Physician Gus Canela HPI: 09/09 20:55 This 54 yrs old Female presents to ER via EMS with complaints of Seizure. rt 20:55 Patient presents to the ED with reported witnessed seizure, about 5 episodes, lasting rt roughly 10 seconds without a postictal period, patient states that she has not had her Depakote for some time. Denies other acute complaints at this time, symptoms are moderate in severity, no other aggravating or alleviating factors.. 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 - Infectious Disease History:: Denies. - Social history:: Smoking status: Patient reports the use of cigarette tobacco products, Patient uses alcohol, street drugs, marijuana. - Family history:: not pertinent. ROS: 20:55 Constitutional: Negative for fever, chills, and weight loss, Cardiovascular: Negative rt for chest pain, palpitations, and edema, Respiratory: Negative for shortness of breath, cough, wheezing, and pleuritic chest pain, Abdomen/GI: Negative for abdominal pain, nausea, vomiting, diarrhea, and constipation, Skin: Negative for injury, rash, and discoloration, 20:55 Neuro: Positive for seizure activity, Negative for altered mental status, Exam: 20:55 Constitutional: This is a well developed, well nourished patient who is awake, alert, rt and in no acute distress. Head/Face: Normocephalic, atraumatic. Chest/axilla: Normal chest wall appearance and motion. Nontender with no deformity. No lesions are appreciated. Cardiovascular: Regular rate and rhythm with a normal S1 and S2. No gallops, murmurs, or rubs. Normal PMI, no JVD. No pulse deficits. Respiratory: Lungs have equal breath sounds bilaterally, clear to auscultation and percussion. No rales, rhonchi or wheezes noted. No increased work of breathing, no retractions or nasal flaring. Abdomen/GI: Soft, non-tender, with normal bowel sounds. No distension or tympany. No guarding or rebound. No evidence of tenderness throughout. Skin: Warm, dry with normal turgor. Normal color with no rashes, no lesions, and no evidence of cellulitis. MS/ Extremity: Pulses equal, no cyanosis. Neurovascular intact. Full, normal range of motion. Neuro: Awake and alert, GCS 15, oriented to person, place, time, and situation. Cranial nerves II-XII grossly intact. Motor strength 5/5 in all extremities. Sensory grossly intact. Cerebellar exam normal. Normal gait. 20:55 ECG was reviewed by the Attending Physician. Vital Signs: 20:25 BP 104 / 89; Pulse 121; Resp 18; Temp 98.7; Pulse Ox 98% ; Weight 77.11 kg; Height 5 bm8 ft. 3 in. ; Pain 0/10; 22:29 BP 128 / 75; Pulse 111; Resp 18; Temp 98.7; Pulse Ox 99% ; Pain 0/10; bm8 23:34 BP 127 / 84; Pulse 100; Resp 18; Temp 98.6; Pulse Ox 100% ; Pain 0/10; bm8 20:25 Body Mass Index 30.11 (77.11 kg, 160.02 cm) bm8 20:25 Pain Scale: Adult bm8 22:29 Pain Scale: Adult bm8 23:34 Pain Scale: Adult bm8 [place] Coma Score: 20:25 Eye Response: spontaneous(4). Motor Response: obeys commands(6). Verbal Response: bm8 oriented(5). Total: 15. 22:29 Eye Response: spontaneous(4). Motor Response: obeys commands(6). Verbal Response: bm8 oriented(5). Total: 15. 23:34 Eye Response: spontaneous(4). Motor Response: obeys commands(6). Verbal Response: bm8 oriented(5). Total: 15. MDM: 20:25 Medical Screening Exam initiated rt 09/10 00:44 Differential diagnosis: Breakthrough seizure, alcohol intoxication, electrolyte rt disturbance. Data reviewed: vital signs, nurses notes, lab test result(s), EKG. Consideration of Admission/Observation Escalation of care including admission/observation considered. Return to baseline mental status, labs are benign, no indications for admission at this time.. I considered the following discharge prescriptions or medication management in the emergency department Medications were administered in the Emergency Department. See MAR. Test considered but Not performed: CT: No signs of trauma, history of trauma reported, back to baseline mental status, has pre-existing history of seizures, CT scan of the head is not indicated. Care significantly affected by the following chronic conditions: Seizure disorder. Counseling: I had a detailed discussion with the patient and/or guardian regarding the historical points, exam findings, and any diagnostic results supporting the discharge/admit diagnosis, lab results, the need for outpatient follow up. Response to treatment: the patient's symptoms have markedly improved after treatment. 09/09 20:27 Order name: CBC with Diff rt 09/09 20: Order name: CMP; Complete Time: 21:41 rt 09/09 20:27 Order name: Ethanol; Complete Time: 21:41 rt EC/21 20:55 Rate is 119 beats/min. Rhythm is regular, Sinus tachycardia with No ectopy. QRS [place] is rt Normal. NC interval is normal. QRS interval is normal. QT interval is normal. No Q waves. Interpreted by me. Administered Medications: 20:38 Drug: Valproic Acid PO 500 mg PO once Route: PO; bm8 22:31 Follow up: Response: No adverse reaction bm8 22:34 Follow up: Response: No adverse reaction bm8 22:00 Drug: Valproic Acid IV 500 mg IV at calculated rate once over 60 mins; (mix in 100 mL bm8 NS) Route: IV; Rate: calculated rate; Infused Over: 60 mins; Site: right wrist; 23:04 Follow up: Response: No adverse reaction; IV Status: Completed infusion; IV Intake: bm8 100ml Disposition Summary: 09/09/24 23:22 Discharge Ordered Notes: Location: Home rt Problem: an acute exacerbation rt Symptoms: have improved rt Condition: Stable rt Diagnosis - Breakthrough seizure rt Followup: rt - With: Private Physician - When: 2 - 3 days - Reason: Discharge Instructions: - Discharge Summary Sheet rt - Seizure, Adult rt Forms: - Medication Reconciliation Form rt - Antibiotic Education rt - Prescription Opioid Use rt - Patient Portal Instructions rt - Leadership Thank You Letter rt Signatures: Dispatcher [employer] Gus Venegas MD MD rt Donnell Agrawal, RN RN bm8
[2024-09-10 01:44] LABS: Blood Morphology Comment NOT SEEN (NOT SEEN); Platelet Estimate ADEQ; White Blood Cell Scan OK (OK)
[2024-09-10 11:35] VITALS: BP 127/84; TEMP 98.6; O2SAT 100
--- NOTE | 2024-09-12 12:04 | EKG ---
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
== END 2024-09-09 23:36 | disposition home or self-care (01) ==
LOC: ER 20:24
DX: G40.89 Other seizures (principal); I10 Essential (primary) hypertension; Z88.8 Allergy status to other drugs, medicaments and biological substances; Z91.09 Other allergy status, other than to drugs and biological substances
CPT/HCPCS: 36415; 80053; 82077; 85025; 93005; 96365; 99285

== ENCOUNTER 2024-09-21 14:26 | Inpatient (IN) | payer OTHER ==
--- OUTSIDE RECORDS SUMMARY | 2024-09-21 14:55 | XMS REPORT | Continuity of Care Document ---
Author Name Unknown Address [address] [facility]. [address] [place] [address] [facility] thconnect Address [address] [facility] [place] [address] Care Team Providers Care Technician'S Helper Name Role Phone Pcp, Pcp Primary Care Physician Unavailab PANKAJ Cook Attending Clinician Un available AYDEE GO Attending Clinician Unavailable MARIANELA COLLAZO Attending Clinician Unavailab ADAM Cabrera Attending Clinician Unavailable THOMAS LOZOYA Attending Clinician Nina vailable MARIAH ALDRIDGE Attending Clinician Unavailable Doctor Unassigned, [place] Attending Clinician U navailable WENDI MONTAÑO Attending Clinician Unavailable Brooklynn Paige MD Attending Clinician [phone] Wendi Montaño MD Attending Clinician [phone] System, Provider Not In Attending Clinician Unav ailable GUSTAVO DELANEY Attending Clinician Unavailable CHRISSY MOHR Attending Clinician Unavailable CHRISSY MOHR Attending Clinician Unavailable Chrissy Mohr DO Attending Clinician [phone] MD GERRY Attending Clinician Unavailab le Doctor Unassigned, [place] Park Attending Clinician U navailable MORALES BALL Attending Clinician Unavailab RADHA Vargas Attending Clinician Unavailable RADHA WYATT Attending Clinician Unavailable Veronique Carrillo RN Attending Clinician [phone] DARRICK FRY Attending Clinician Unavailabl itz Doyle JIG FITTER, Olena Attending Clinician [phone] Jenny MITTAL, Alfonso Moseley Attending Clinician +[phone] Lisandra ELIZONDO, Darrick Campoverde Attending Clinician [phone] Jodi Berg RN Attending Clinician Unavail able TAL BENAVIDEZ Attending Clinician Unavailable Mj Bryan DO Attending Clinician +[phone] Tal Benavidez MD Attending Clinician [phone] MOJGAN SUERO Attending Clinician Unav Connor Ortiz MD Attending Clinician + [phone] Mojgan Suero MD Attending Clinician + Madeline Mckinley RN Attending Clinician Unavailab MADELINE Edwards Attending Clinician Unavailable MADELINE PIERRE Attending Clinician Unavailable Megan Rondon MD Attending Clinician [phone] Cr Fry MD Attending Clinician +[phone] Ivis Mcdermott MD Attending Clinician [phone] Ryder Vaca MD Attending Clinici an AARON LEDESMA Attending Clinician Unavailable Tracy ELIZONDO, Cris Attending Clinician [phone] EFRA BABCOCK Attending Clinician Un available MYLA LIEBERMAN Attending Clinician Unavailable JUANY GREEN Attending Clinician Unavailable PROVIDER, CAMPAIGNS Attending Clinician Unavaila SIDDHARTH Kaye Attending Clinician UnavailMARGOT Dexter Attending Clinician Unavailable SARAI JULES Attending Clinician Unavaila YONATAN Juarez Attending Clinician Unamario ilEDWARD Arreola Attending Clinician Unavailable Nir ELIZONDO, [place] Olivia Attending Clinician Unavailab monroe Obregon MD, Pankaj Attending Clinician [phone] Edward Fry DO Attending Clinician [phone] Edward Farrell MD Attending Clinician [phone] DEMETRIUS TOBAR Attending Clinician Unavailab QUIN Armenta Attending Clinician Unavail able Kael BELTRAN, Quin R Attending Clinician [phone] MJ BRYAN Attending Clinician Unavailable Provider, Not In System Attending Clinician Unav arianna Collazo MD, Marianela Hamilton Attending Clinician [phone] Aydee Go MD Attending Clinician [phone] Dallas Gomez Attending Clinician [phone] Adam Garcia MD Attending Clinician [phone] Harry Newsome MD Attending Clinician +[phone] Antwon Cote MD Attending Clinician Unavailab Yue Booth MD Attending Clinician [phone] Connie Davey MD Attending Clinician +[phone] Mariah Aldridge MD Attending Clinician [phone] Valerio ELIZONDO, Thomas Reddy Attending Clinician + [phone] CONNIE DAVEY Attending Clinician UnavailAlfonso Oh Attending Clinician Unavailable RITCHIE MOTTA Attending Clinician Unavailable Ritchie Motta MD Attending Clinician [phone] Rk CAMPOS, Margot Stoner Attending Clinician +[phone] PARRISH WHEATLEY Attending Clinician Unavaila yaya Mendoza MD, Halima Hummel Attending Clinician +[phone] Ning Geller MD Attending Clinician +[phone] Roxi ELIZONDO, Parrish Reyez Attending Clinici an DAMI LOWRY Attending Clinician Unavailable Essence ELIZONDO, Dami Attending Clinician [phone] Corey DUMONT, Maria Teresa Attending Clinician +[phone] CHANTEL BOJORQUEZ Attending Clinician CHANTEL Kelly Attending Clinician Jack Mcfarlane MD, Brandyn Otoole Attending Clinician +[phone] SELINA MARTINES Attending Clinician Unavailable Sapna Vargas DO Attending Clinician + [phone] Tyrel ELIZONDO, Glory Katz Attending Clinician + Selina Martines MD Attending Clinician [phone] Vaccine, [place] Pedi Attending Clinician U chelsi Pak MD, Jose Attending Clinician [phone] JOSE PAK Attending Clinician Unavailable WILLIAMS ALLISON Attending Clinician Unavaila yaya Allison DISTRICT RECRUITER, Williams F Attending Clinician [phone] Brandy CAMPOS, Miky Attending Clinician Unavailab monroe Chakraborty DISTRICT RECRUITER, Fabrice Attending Clinician [phone] Ebpenelope DISTRICT RECRUITER, Lydia Attending Clinician +[phone] Unknown, Attending Attending Clinician Unavailab le UNKNOWN, ATTENDING Attending Clinician Unavailab Estefania Berg Attending Clinician [phone] Yehuda Arcos MD Attending Clinician [phone] PANKAJ OBREGON Admitting Clinician Un available MARIANELA COLLAZO Admitting Clinician Unavailab ADAM Cabrera Admitting Clinician Unavailable MARIAH ALDRIDGE Admitting Clinician Unavailable CHRISSY MOHR Admitting Clinician Unavailable RADHA WYATT Admitting Clinician Unavailable DARRICK FRY Admitting Clinician UnavailDarrick Geiger MD Admitting Clinician TAL BENAVIDEZ Admitting Clinician Unavailable Tal Benavidez MD Admitting Clinician [phone] MOJGAN SUERO Admitting Clinician Unav ailable Mojgan Suero MD Admitting Clinician + CR FRY Admitting Clinician Unavailable CONNIE DAVEY Admitting Clinician UnavailAlfonso Oh Admitting Clinician Unavailable RITCHIE MOTTA Admitting Clinician Unavailable NING GELLER Admitting Clinician Unavaila DAMI Mariscal Admitting Clinician Unavailable Dami Lowry MD Admitting Clinician +[phone] BRANDYN MCFARLANE Admitting Clinician Unavailable Brandyn Mcfarlane MD Admitting Clinician +[phone] GLORY ESTEVES Admitting Clinician Unav ailable WILLIAMS ALLISON Admitting Clinician Unavaila ble Payers Payer Name Policy Type Policy Number Effective Date Expirati on Date Source [facility] [place] EXCH [id number] 2023 00:00:00 ISA RICARDO [id number] 2023 00:00:00 [facility] SESAR SEV[place]A COPAY FOCUS 9 [id number] 2023 00:00:00 MEDICAID PENDING PENDING 2022 00:00:00 [...] failure Disease Active 01-09 00:00: 00 [facility] Hypotensio n Hypotensio n Disease Active 6-22 00:00: 00 [facility] LV (left ventricula r) mural thrombus LV (left ventricula r) mural thrombus Disease Active 12-14 00:00: 00 [facility] Pulmonary hypertensi on Pulmonary hypertensi on Disease Active 12-14 00:00: 00 [facility] Shortness of breath Shortness of breath Disease Active 27 00:00: 00 [facility] Other chest pain Other chest pain Disease Active 5-15 00:00: 00 [facility] Depression Depression Disease Active 09-29 00:00: 00 Cynthia gonzalez Anxiety Anxiety Disease Active 09-29 00:00: 00 Cynthia Erazoa raul CAD (coronary artery disease) CAD (coronary [...] 09-11 00:00: 00 Cynthia Bedoyaold - Externa raul Bipolar disorder (multi HCC) [...] leg weakness Disease Active 2022-07 00:00: 00 [facility] Bilateral leg weakness Bilateral leg weakness Disease Active 2022-07 00:00: 00 [facility] Pneumonia Pneumonia Disease Active 2022-07 00:00: 00 [facility] Cavitary lesion of lung Cavitary lesion of lung Disease Active 2022-07 00:00: 00 [facility] Cervical myelopathy Cervical myelopathy Disease Recurre nce 2022-07 00:00: 00 [facility] Cervical disc disorder with myelopathy , high cervical region Cervical disc disorder with myelopathy , high cervical region Disease Active 2022-07 00:00: 00 [facility] Cord compressio n Cord compressio n Disease Recurre nce - 00:00: 00 [facility] Cauda equina compressio n Cauda equina compressio n Disease Active 03-30 00:00: 00 [facility] Seizure Seizure Disease Recurre nce - 00:00: 00 [facility] Cardiomyop athy Cardiomyop athy Disease Active 08-01 00:00: 00 [facility] NSVT (nonsustai keisha ventricula r tachycardi a) NSVT (nonsustai keisha ventricula r tachycardi a) Disease Active 08-01 00:00: 00 [facility] Elevated brain natriureti c peptide (BNP) level Elevated brain natriureti c peptide (BNP) level Disease Active 07-31 00:00: 00 [facility] Chest pain, unspecifie d type Chest pain, unspecifie d type Disease Active 07-31 00:00: 00 [facility] Elevated brain natriureti c peptide (BNP) level Elevated brain natriureti c peptide (BNP) level Disease Active 07-31 00:00: 00 [facility] Coronary artery disease involving [place] coronary artery of [place] heart without angina pectoris Coronary artery disease involving [place] coronary artery of [place] heart without angina pectoris Disease Active 07-31 00:00: 00 [facility] Snores Snores Disease Active 07-31 00:00: 00 [facility] Cigarette smoker Cigarette smoker Disease Active 07-31 00:00: 00 [facility] Primary hypertensi on Primary hypertensi on Disease Active 07-31 00:00: 00 [facility] Other hyperlipid emia Other hyperlipid emia Disease Active 07-31 00:00: 00 [facility] Coronary artery disease involving [place] coronary artery of [place] heart without angina pectoris Coronary artery disease involving [place] coronary artery of [place] heart without angina pectoris Disease Active 07-31 00:00: 00 [facility] Chronic bilateral low back pain with bilateral sciatica Chronic bilateral low back pain with bilateral sciatica Disease Active 2021-07 0-17 00:00: 00 [facility] 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 Disease Active 04-15 00:00: 00 [facility] Neuroforam inal stenosis of cervical spine Neuroforam inal stenosis of cervical spine Disease Active 04-15 00:00: 00 [facility] Stroke-lik e symptoms Stroke-lik e symptoms Disease Active 04-13 00:00: 00 [facility] Bipolar disorder, in partial remission, most recent episode manic Bipolar disorder, in partial remission, most recent episode manic Disease Active 3-11 00:00: 00 [facility] Neuroforam inal stenosis of lumbar spine Neuroforam inal stenosis of lumbar spine Disease Active 09-27 00:00: 00 [facility] Bilateral acute otitis media, recurrence not specified, unspecifie d otitis media type Bilateral acute otitis media, recurrence not specified, unspecifie d otitis media type Disease Active 09-27 00:00: 00 [facility] Lumbar spinal stenosis Lumbar spinal stenosis Disease Active 09-27 00:00: 00 [facility] Right-side d low back pain with sciatica, sciatica laterality unspecifie d Right-side d low back pain with sciatica, sciatica laterality unspecifie d Disease Active 09-27 00:00: 00 [facility] Generalize d anxiety disorder Generalize d anxiety disorder Disease Active 09-27 00:00: 00 [facility] Agoraphobi a Agoraphobi a Disease Active 09-27 00:00: 00 [facility] Bipolar disorder, in partial remission, most recent episode manic Bipolar disorder, in partial remission, most recent episode manic Disease Active 09-27 00:00: 00 [facility] Obsessive compulsive disorder Obsessive compulsive disorder Disease Active 09-27 00:00: 00 [facility] Breast mass, left Breast mass, left Disease Active 09-17 00:00: 00 [facility] Anxiety Anxiety Disease Active 09-17 00:00: 00 [facility] Lower back pain Lower back pain Disease Active 09-17 00:00: 00 [facility] High blood pressure High blood pressure Disease Active 09-17 00:00: 00 [facility] COPD (chronic obstructiv e pulmonary disease) COPD (chronic obstructiv e pulmonary disease) Disease Active 09-17 00:00: 00 [facility] Obesity Obesity Disease Active 09-17 00:00: 00 [facility] Breast pain Breast pain Disease Resolve d 09-17 00:00: 00 2015-09-18 00:00:00 2015-09-18 13:19:09 [facility] Allergies, Adverse Reactions, Alerts Allergy Name Allergy Type Status Severity Reaction(s) Onset Date Inactive Date Treating Clinician Comments Source Levetira cetam Propensi ty to adverse reaction s Active - 00:00: 00 [facility] Fluoxeti ne Propensi ty to adverse reaction s Active - 00:00: 00 [facility] Green Tea Drug Allergy Active Other (See Comments) 03-29 00:00: 00 Seizure like activity [facility] Levetira cetam Drug Allergy Active Nausea And Vomiting 03-29 00:00: 00 Intensifi es seizure [facility] FLUOXETI NE Allergy Active 03-29 00:00: 00 [facility] GREEN TEA Allergy Active High Other - 00:00: 00 [facility] LEVETIRA CETAM Allergy Active High N\\T\\V 03-29 00:00: 00 [facility] Green Tea Propensi ty to adverse reaction s Active 03-29 00:00: 00 Seizure like activity [facility] Levetira cetam Propensi ty to adverse reaction s Active Nausea And Vomiting 03-29 00:00: 00 Intensifi es seizure [facility] LEVETIRA CETAM DRUG INGREDI Active Other-Cmnt 11-17 00:00: 00 [facility] Levetira cetam Propensi ty to adverse reaction s Active Other - See comments 11-17 00:00: 00 Makes seizures worse [facility] Levetira cetam Propensi ty to adverse reaction s Active Other 11-17 00:00: 00 Intensifi es seizure Makes seizures worse Makes seizures worse Intensifi es seizure Cynthia Seybold - Externa l FLUOXETI NE Allergy Active Med Rash 1-14 00:00: 00 [facility] Fluoxeti ne Propensi ty to adverse reaction s Active Rash -14 00:00: 00 [facility] Green Tea Propensi ty to adverse reaction s Active 08-02 00:00: 00 [facility] GREEN TEA Allergy Active 08-02 00:00: 00 [facility] Fluoxeti ne Propensi ty to adverse reaction s Active Unknown - See comments 03-25 00:00: 00 [facility] FLUOXETI NE DRUG INGREDI Active Unknown-Cmnt 03-25 00:00: 00 [facility] DICLOFEN AC DRUG INGREDI Active HYPERTENSION 11-20 00:00: 00 [facility] Diclofen ac Propensi ty to adverse reaction s Active Anxiety 11-20 00:00: 00 Cynthia gonzalez GREEN TEA DRUG INGREDI Active Med Other-Cmnt 08-10 00:00: 00 [facility] Green Tea Propensi ty to adverse reaction s to drug Active Other - See comments 08-10 00:00: 00 Seizures [facility] Green Tea Propensi ty to adverse reaction s Active Anxiety 08-10 00:00: 00 Seizure like activity Seizures Seizures Seizure like activity Cynthia gonzalez FLUOXETI NE HCL DRUG INGREDI Active Hives 03-19 00:00: 00 [facility] Fluoxeti ne Hcl Propensi ty to adverse reaction s Active Hives 03-19 00:00: 00 [facility] Family History Family Member Diagnosis Comments Start Date Stop Date Sourc e Natural mother Alcohol abuse [facility] Natural mother Cancer [facility] Natural mother Diabetes [facility] Natural mother Heart disease [facility] Natural mother Hyperlipidemia [facility] Natural mother Kidney disease [facility] Natural mother Stroke [facility] Natural mother Alcohol abuse [facility] Natural mother Stroke [facility] Paternal uncle Diabetes [facility] Social History Social Habit Start Date Stop Date Quantity Comments Source Gender identity Jeffrey margarita Bolaños Epic History of tobacco use Cigarette Smoker [facility] - External History SDOH Alcohol Frequency [facility] History SDOH Alcohol Std Drinks [facility] History SDOH Alcohol Binge [facility] History SDOH Housing Homeless Last Year [facility] History SDOH Social Connections Get Together [facility] History SDOH Social Connections [facility] Social Connections Membership [facility] History SDOH Social Connections Meetings [facility] ASSERTION Not [facility] Sexual orientation C [facility] Tobacco use and exposure 2023-09-30 [...] of Social function 2023-08-03 00:00:00 2023-08-03 00:00:00 [facility] Alcoholic beverage intake 2023-06-02 00:00:00 2023-06-02 00:00:00 Current drinker of alcohol (finding) [facility] Exposure to SARS-CoV-2 (event) 2023-05-18 00:00:00 2023-05-28 07:28:00 Not sure [facility] History SDOH Housing Unable to Pay - In the last 12 months, was there a time when you were not able to pay the mortgage or rent on time? 2023-05-26 00:00:00 2023-05-26 00:00:00 Yes [facility] Cigarette pack-years 2023-05-26 00:00:00 2023-05-26 00:00:00 [facility] Cigarettes smoked current (pack per day) - Reported 2023-05-26 00:00:00 2023-05-26 00:00:00 [facility] History SDOH Housing Places Lived 2023-03-30 00:00:00 2023-03-30 00:00:00 1 [facility] Alcohol Comment 2023-03-29 00:00:00 2023-03-29 00:00:00 2x a week [facility] History SDOH Social Connections Phone 2022-08-01 00:00:00 2022-08-01 00:00:00 5 [facility] History SDOH Social Connections Living 2022-08-01 00:00:00 2022-08-01 00:00:00 5 [facility] History SDOH Physical Activity DPW 2022-08-01 00:00:00 2022-08-01 00:00:00 0 [facility] History SDOH Physical Activity MPS 2022-08-01 00:00:00 2022-08-01 00:00:00 0 [facility] History SDOH Financial 2022-08-01 00:00:00 2022-08-01 00:00:00 3 [facility] History SDOH Food Worry 2022-08-01 00:00:00 2022-08-01 00:00:00 1 [facility] History SDOH Food Scarcity 2022-08-01 00:00:00 2022-08-01 00:00:00 1 [facility] History SDOH Transport Med 2022-08-01 00:00:00 2022-08-01 00:00:00 2 [facility] History SDOH Transport Non-Med 2022-08-01 00:00:00 2022-08-01 00:00:00 2 [facility] Sex assigned at 1970 00:00:00 1970 00:00:00 [facility] Smoking Status Start Date Stop Date Source Tobacco smoking consumption unknown [facility] Smokes tobacco daily 2023-09-30 00:00:00 Cynthia Garcia - External Never smoked tobacco Cynthia Garcia - External Ex-smoker 2023-05-26 00:00:00 2023-05-26 00:00:00 [facility] Medications Ordered Medication Name Filled [...] 4000mg/day (4gm/day) [facility] HYDROcodone -acetaminop hen (Cumby) 5-325 MG per tablet 1 tablet HYDROcodone -acetaminop hen (Cumby) 5-325 MG per tablet 1 tablet 08-10 [...] 00:00: 00 09-09 23:59 :00 No 300mg [id number] 3D Take 1 capsule by mouth in the morning and 1 capsule at noon and 1 capsule in the evening. [facility] Bolaños Epic cefpodoxime (Vantin) 200 MG tablet cefpodoxime (Vantin) 200 MG tablet 08-10 00:00: 00 08-20 23:59 :00 No 200mg Q.5D Take 1 tablet by mouth in the morning and 1 tablet in the evening. Do all this for 10 days. [facility] B[facility]ños Epic methocarbam ol (Robaxin) 750 MG tablet [...] unable to tolerate oral medication s? Yes [facility] valproate (DEPACON) 500 mg in D5W piggyback 04-03 03:30: 00 04-03 04:49 :00 No 500mg 500 mg, IV Piggyback, ONCE NOW, 1 dose, On 04/02/24 at 2245, Administer over 30 Minutes, 100 mL [facility] divalproex (DEPAKOTE) delayed release tablet 250 mg 04-03 03:15: 00 04-03 04:07 :00 No 250mg 250 mg, Oral, ONCE NOW, 1 dose, On 04/02/24 at 2215, MICHAEL [facility] ondansetron (ZOFRAN (PF)) injection 4 mg 04-03 02:30: 00 04-03 04:58 :00 No 4mg 4 mg, Slow IV Push, ONCE, 1 dose, On 04/02/24 at 2130, MICHAEL [facility] morpHINE (4 mg/mL) injection 4 mg 04-03 02:30: 00 04-03 04:58 :00 No 4mg 4 mg, Slow IV Push, ONCE, 1 dose, On 04/02/24 at 2130, STAT [facility] divalproex ER 500 mg 24 hr tablet 04-03 00:00: 00 Yes [id number] 1000mg Take 2 tablets by mouth every 12 (twelve) hours. [facility] KCL 20 mEq tablet 9-15 00:00: 00 04-09 04:59 :00 No [id number] 40meq Take 2 tablets by mouth in the morning for 5 days. [facility] LORazepam (ATIVAN) tablet 1 mg 01-12 04:00: 00 01-12 03:56 :00 No 1mg 1 mg, Oral, ONCE, 1 dose, On Thu01/12/24 at 2300, MICHAEL [facility] ondansetron (ZOFRAN (PF)) injection 8 mg 01-12 04:00: 00 01-12 03:55 :00 No 8mg 8 mg, Slow IV Push, ONCE, 1 dose, On Thu01/12/24 at 2300, MICHAEL [facility] morpHINE (4 mg/mL) injection 6 mg 01-12 04:00: 00 01-12 03:55 :00 No 6mg 6 mg, Slow IV Push, ONCE, 1 dose, On Thu01/12/24 at 2300, STAT [facility] mirtazapine (REMERON) tablet 15 mg 01-10 02:00: 00 Yes 15mg [facility] atorvastati n (LIPITOR) tablet 40 mg 01-10 02:00: 00 Yes 40mg [facility] MULTIVITAMI N ORAL 01-09 15:56: 06 Yes 1{tbl} Take 1 Tab by mouth daily. [facility] omega-3 fatty acids-vitam in E (FISH OIL) 1,000 mg capsule 01-09 15:56: 06 Yes 1g Take 1 g by mouth daily. [facility] loratadine (CLARITIN LIQUI-GEL) 10 mg capsule 01-09 15:56: 06 Yes Take by mouth daily. [facility] metoprolol succinate XL 50 mg 24 hr tablet 01-09 15:56: 06 01-09 00:00 :00 No 50mg Take 1 tablet by mouth in the morning. [facility] KCL (KLOR-CON M20) tablet 40 mEq 01-09 15:45: 00 01-09 17:43 :00 No 40meq 40 mEq, Oral, ONCE, 1 dose, On 01/10/24 at 1045, Routine [facility] ondansetron 4 mg tablet 01-09 14:46: 23 01-09 00:00 :00 No 4mg Take 1 tablet by mouth every 8 (eight) hours as needed for Nausea and Vomiting (N/V). [facility] perflutren protein-A microsphr (OPTISON) injection 3 mL 01-09 14:15: 00 01-09 14:15 :00 No [id number] 3mL 3 mL, IV Push, ONCE, 1 dose, On 01/10/24 at 0915, Routine [facility] tamsulosin (FLOMAX) capsule 0.4 mg 01-09 14:00: 00 Yes .4mg 0.4 mg, Oral, DAILY, First dose on 01/10/24 at 0900, Until Discontinu ed, Routine [facility] metoprolol succinate XL (TOPROL XL) tablet 12.5 mg 01-09 14:00: 00 Yes 12.5mg [facility] DULoxetine (CYMBALTA) capsule 30 mg 01-09 14:00: 00 Yes 30mg 30 mg, Oral, DAILY, First dose on 01/10/24 at 0900, Until Discontinu ed, Routine [facility] digoxin (LANOXIN) tablet 125 mcg 01-09 14:00: 00 Yes 125ug 125 mcg, Oral, DAILY, First dose on 01/10/24 at 0900, Until Discontinu ed [facility] aspirin chewable tablet 81 mg 01-09 14:00: 00 Yes 81mg 81 mg, Oral, DAILY, First dose on 01/10/24 at 0900, Until Discontinu ed, Routine [facility] nicotine (NICODERM) 21 mg/24 hr patch 1 Patch 01-09 13:45: 00 Yes 1{patch } 1 Patch, Topical, Administer over 24 Hours, Q24H, First dose on Thu01/10/24 at 0845, Until Discontinu ed, Routine [facility] gabapentin (NEURONTIN) capsule 100 mg 01-09 13:00: 00 Yes 100mg 100 mg, Oral, TID, First dose on Thu01/10/24 at 0800, Until Discontinu ed, Routine [facility] divalproex (DEPAKOTE) delayed release tablet 1,000 mg 01-09 13:00: 00 Yes 1000mg 1,000 mg, Oral, Q12H, First dose on Thu01/10/24 at 0800, Until Discontinu ed, Routine [facility] cyclobenzap rine (FLEXERIL) tablet 5 mg 01-09 13:00: 00 Yes 5mg 5 mg, Oral, TID, First dose on Thu01/10/24 at 0800, Until Discontinu ed, Routine [facility] apixaban (ELIQUIS) tablet 5 mg 01-09 13:00: 00 02-27 12:59 :00 No [id number] 5mg 5 mg, Oral, BID, 98 doses, First dose on Thu01/10/24 at 0800, Last dose on 02/27/24 at 2000, Routine, Indication s: DVT/PE [facility] FENTanyl PF (SUBLIMAZE (PF)) injection 25 mcg 01-09 03:08: 20 01-10 03:07 :20 No 25ug 25 mcg, Slow IV Push, Q4HPRN, Starting on 01/09/24 at 2208, Until 01/10/24 at 2207, Routine, Pain (scale 7-10), Pain (scale 4-6) [facility] acetaminoph en (TYLENOL) tablet 650 mg 01-09 03:08: 07 Yes 650mg 650 mg, Oral, Q6HPRN, Starting on 01/09/24 at 2208, Until Discontinu ed, Routine, Pain (scale 1-3) [facility] ondansetron (ZOFRAN (PF)) injection 4 mg 01-09 02:45: 00 01-09 01:53 :00 No 4mg 4 mg, Slow IV Push, ONCE, 1 dose, On 01/09/24 at 2145, MICHAEL [facility] ipratropium -albuteroL (DUONEB) 0.5 mg-3 mg(2.5 mg base)/3 mL nebulizer solution 3 mL 01-09 02:45: 00 01-09 02:01 :00 No 3mL 3 mL, Inhalation , ONCE, 1 dose, On 01/09/24 at 2145, Routine [facility] cefTRIAXone (ROCEPHIN) 1,000 mg in NaCl 0.9% (NS) 100 mL MINI-BAG 01-09 02:30: 00 01-09 03:10 :00 No 1000mg 1,000 mg, IV Piggyback, ONCE, 1 dose, On 01/09/24 at 2130, Administer over 30 Minutes, 100 mL, Reason for Anti-Infec tive: Documented Infection, Documented Infection Site: Respirator y, Duration of Therapy: Once (ED) [facility] famotidine (PEPCID (PF)) injection 20 mg 01-09 01:45: 00 01-09 01:53 :00 No 20mg 20 mg, Slow IV Push, ONCE, 1 dose, On 01/09/24 at 2045, MICHAEL [facility] iopamidol (ISOVUE 370-500 mL) injection 90 mL 01-09 00:45: 00 01-09 00:45 :00 No [id number] 90mL 90 mL, Intravenou s, ONCE, 1 dose, On 01/09/24 at 1945, Routine [facility] atorvastati n 40 mg tablet 01-09 00:00: 00 Yes [id number] 20mg Take 0.5 tablets by mouth at bedtime. [facility] furosemide 40 mg tablet 01-09 00:00: 00 Yes [id number] 40mg Take 1 tablet by mouth every morning and evening. [facility] ipratropium -albuteroL 0.5 mg-3 mg(2.5 mg base)/3 mL nebulizer solution 01-09 00:00: 00 Yes [id number] 3mL Inhale 3 mL every 6 (six) hours as needed for Wheezing or Shortness of Breath. [facility] predniSONE 20 mg tablet 01-09 00:00: 00 01-15 04:59 :00 No [id number] 40mg Take 2 tablets by mouth in the morning for 5 days. [facility] FENTanyl PF (SUBLIMAZE (PF)) injection 50 mcg 01-08 22:45: 00 01-08 23:10 :00 No 50ug 50 mcg, Slow IV Push, ONCE, 1 dose, On 01/09/24 at 1745, STAT [facility] ondansetron (ZOFRAN (PF)) injection 4 mg 01-08 21:30: 00 01-08 21:47 :00 No 4mg 4 mg, Slow IV Push, ONCE, 1 dose, On 01/09/24 at 1630, MICHAEL [facility] aspirin tablet 325 mg 01-08 21:15: 00 01-08 21:47 :00 No 325mg 325 mg, Oral, ONCE, 1 dose, On 01/09/24 at 1615, STAT [facility] spironolact one 25 mg tablet 12-15 00:00: 00 01-15 04:59 :00 No [id number] 25mg Take 1 tablet by mouth in the morning for 30 days. [facility] furosemide (LASIX) tablet 40 mg 12-14 22:00: 00 Yes 40mg 40 mg, Oral, QAM+PM, First dose (after last modificati on) on Thu12/15/23 at 1700, Until Discontinu ed, Routine [facility] spironolact one (ALDACTONE) tablet 25 mg 12-14 14:00: 00 Yes 25mg 25 mg, Oral, DAILY, First dose on Thu12/15/23 at 0900, Until Discontinu ed, Routine [facility] tamsulosin (FLOMAX) capsule 0.4 mg 12-14 14:00: 00 Yes .4mg 0.4 mg, Oral, DAILY, First dose on Thu12/15/23 at 0900, Until Discontinu ed, Routine [facility] metoprolol succinate XL (TOPROL XL) tablet 12.5 mg 12-14 14:00: 00 Yes 12.5mg 12.5 mg, Oral, DAILY, First dose on Thu12/15/23 at 0900, Until Discontinu ed, Routine [facility] lisinopriL (PRINIVIL,Z ESTRIL) tablet 2.5 mg 12-14 14:00: 00 Yes 2.5mg [facility] DULoxetine (CYMBALTA) capsule 30 mg 12-14 14:00: 00 Yes 30mg 30 mg, Oral, DAILY, First dose on Thu12/15/23 at 0900, Until Discontinu ed, Routine [facility] digoxin (LANOXIN) tablet 125 mcg 12-14 14:00: 00 Yes 125ug 125 mcg, Oral, DAILY, First dose on Thu12/15/23 at 0900, Until Discontinu ed [facility] aspirin chewable tablet 81 mg 12-14 14:00: 00 Yes 81mg 81 mg, Oral, DAILY, First dose on Thu12/15/23 at 0900, Until Discontinu ed, Routine [facility] furosemide (LASIX) injection 40 mg 12-14 14:00: 00 12-14 13:49 :00 No 40mg 40 mg, Slow IV Push, ONCE, 1 dose, On Thu12/15/23 at 0900, Routine [facility] MULTIVITAMI N ORAL 12-14 11:08: 41 Yes 1{tbl} Take 1 Tab by mouth daily. [facility] omega-3 fatty acids-vitam in E (FISH OIL) 1,000 mg capsule 12-14 11:08: 41 Yes 1g Take 1 g by mouth daily. [facility] loratadine (CLARITIN LIQUI-GEL) 10 mg capsule 12-14 11:08: 41 Yes Take by mouth daily. [facility] ondansetron 4 mg tablet 12-14 11:08: 41 Yes 4mg Take 1 tablet by mouth every 8 (eight) hours as needed for Nausea and Vomiting (N/V). [facility] methylPREDN ISolone sod succ (SOLU-MEDRO L (PF)) injection 40 mg 12-14 11:00: 00 Yes 40mg 40 mg, Intravenou s, Q6H, First dose (after last modificati on) on Thu12/15/23 at 0600, Until Discontinu ed, Routine [facility] ipratropium -albuteroL (DUONEB) 0.5 mg-3 mg(2.5 mg base)/3 mL nebulizer solution 3 mL 12-14 08:08: 34 Yes 3mL 3 mL, Inhalation , QIDPRN, Starting on Thu12/15/23 at 0308, Until Discontinu ed, Routine, Wheezing, Shortness of Breath, Bronchospa sm, Chest tightness [facility] ipratropium -albuteroL (DUONEB) 0.5 mg-3 mg(2.5 mg base)/3 mL nebulizer solution 3 mL 12-14 03:19: 38 Yes 3mL 3 mL, Inhalation , QIDPRN, Starting on Thu12/14/23 at 2219, Until Discontinu ed, Routine, Wheezing, Shortness of Breath, Bronchospa sm, Chest tightness [facility] Sliding Scale Insulin - Lispro (HumaLOG) 12-14 02:00: 00 Yes [facility] mirtazapine (REMERON) tablet 15 mg 12-14 02:00: 00 Yes 15mg 15 mg, Oral, QHS, First dose on Thu12/14/23 at 2100, Until Discontinu ed, Routine [facility] atorvastati n (LIPITOR) tablet 40 mg 12-14 02:00: 00 Yes 40mg 40 mg, Oral, QHS, First dose on Thu12/14/23 at 2100, Until Discontinu ed, Routine [facility] lacosamide (VIMPAT) tablet 100 mg 12-14 01:00: 00 Yes 100mg 100 mg, Oral, BID, First dose on Thu12/14/23 at 1999, Until Discontinu ed, Routine [facility] gabapentin (NEURONTIN) capsule 100 mg 12-14 01:00: 00 Yes 100mg 100 mg, Oral, TID, First dose on Thu12/14/23 at 1999, Until Discontinu ed, Routine [facility] divalproex (DEPAKOTE) delayed release tablet 1,000 mg 12-14 01:00: 00 Yes 1000mg 1,000 mg, Oral, Q12H, First dose on Thu12/14/23 at 2000, Until Discontinu ed, Routine [facility] cyclobenzap rine (FLEXERIL) tablet 5 mg 12-14 01:00: 00 Yes 5mg 5 mg, Oral, TID, First dose on Thu12/14/23 at 1999, Until Discontinu ed, Routine [facility] apixaban (ELIQUIS) tablet 5 mg 12-14 01:00: 00 02-28 00:59 :00 No [id number] 5mg 5 mg, Oral, BID, 152 doses, First dose on Thu12/14/23 at 1999, Last dose on Thu02/28/24 at 0800, Routine, Indication s: DVT/PE [facility] ondansetron (ZOFRAN (PF)) injection 4 mg 12-14 00:15: 00 12-13 23:26 :00 No 4mg 4 mg, Slow IV Push, ONCE, 1 dose, On Thu12/14/23 at 1915, Routine [facility] morpHINE (4 mg/mL) injection 4 mg 12-14 00:15: 00 12-13 23:27 :00 No 4mg 4 mg, Slow IV Push, ONCE, 1 dose, On Thu12/14/23 at 1915, STAT [facility] metFORMIN 500 mg tablet 12-14 00:00: 00 01-14 04:59 :00 No [id number] 500mg Take 1 tablet by mouth in the morning for 30 days. [facility] empaglifloz in (JARDIANCE) 10 mg tablet 12-14 00:00: 00 01-14 04:59 :00 No [id number] 10mg Take 1 tablet by mouth in the morning for 30 days. [facility] furosemide 40 mg tablet 12-14 00:00: 00 01-09 00:00 :00 No [id number] 60mg Take 1.5 tablets by mouth every morning and evening for 60 days. [facility] glucagon (GLUCAGEN DIAGNOSTIC KIT) injection 1 mg 12-13 23:57: 51 Yes 1mg [facility] dextrose 50 % in water (D50W) injection 25 mL 12-13 23:57: 51 Yes 25mL [facility] ondansetron (ZOFRAN (PF)) injection 4 mg 12-13 23:57: 45 Yes 4mg [facility] morpHINE (2 mg/mL) injection 2 mg 12-13 23:57: 39 12-14 23:56 :39 No 2mg 2 mg, Slow IV Push, Q4HPRN, Starting on Thu12/14/23 at 1857, Until Thu12/15/23 at 1856, Routine, Pain (scale 7-10) [facility] HYDROcodone -acetaminop hen (NORCO 5) 5-325 mg tablet 1 tablet 12-13 23:57: 36 12-15 23:56 :36 No 1{tbl} 1 tablet, Oral, Q6HPRN, Starting on Thu12/14/23 at 1857, Until Thu12/16/23 at 1856, Routine, Pain (scale 4-6) [facility] acetaminoph en (TYLENOL) tablet 650 mg 12-13 23:57: 28 Yes 650mg 650 mg, Oral, Q6HPRN, Starting on Thu12/14/23 at 1857, Until Discontinu ed, Routine, Pain (scale 1-3), Temp > 38 C [facility] dicyclomine (BENTYL) tablet 20 mg 12-13 23:53: 34 Yes 20mg [facility] methylpredn isolone sod succ (SOLU-MEDRO L) injection 125 mg 12-13 23:00: 00 12-14 08:08 :57 No 125mg 125 mg, Intravenou s, Q6H, First dose on Thu12/14/23 at 1800, Until Discontinu ed, Routine [facility] ipratropium -albuteroL (DUONEB) 0.5 mg-3 mg(2.5 mg base)/3 mL nebulizer solution 3 mL 12-13 21:00: 00 Yes 3mL 3 mL, Inhalation , QID, First dose on Thu12/14/23 at 1600, Until Discontinu ed, Routine [facility] ondansetron (ZOFRAN (PF)) injection 4 mg 12-13 20:45: 00 12-13 19:40 :00 No 4mg 4 mg, Slow IV Push, ONCE, 1 dose, On Thu12/14/23 at 1545, Routine [facility] morpHINE (4 mg/mL) injection 4 mg 12-13 20:45: 00 12-13 19:41 :00 No 4mg 4 mg, Slow IV Push, ONCE, 1 dose, On Thu12/14/23 at 1545, STAT [facility] furosemide (LASIX) tablet 40 mg 12-03 14:00: 00 Yes 40mg 40 mg, Oral, DAILY, First dose (after last modificati on) on Thu12/04/23 at 0900, Until Discontinu ed, Routine [facility] mirtazapine (REMERON) tablet 15 mg 12-03 02:00: 00 Yes 15mg [facility] metoprolol succinate XL 25 mg 24 hr tablet 12-03 00:00: 00 Yes [id number] 12.5mg Take 0.5 tablets by mouth in the morning. [facility] Potassium Bicarb-Citr ic Acid (EFFER-K) effervescen t tablet 40 mEq 12-02 21:06: 00 12-02 23:09 :00 No 40meq 40 mEq, Oral, ONCE, 1 dose, On Thu12/03/23 at 1615, Routine [facility] metoprolol succinate XL (TOPROL XL) tablet 12.5 mg 12-02 16:00: 00 Yes 12.5mg 12.5 mg, Oral, DAILY, First dose on Thu12/03/23 at 1100, Until Discontinu ed, Routine [facility] sennosides (SENOKOT) tablet 8.6 mg 12-02 15:00: 00 Yes 8.6mg 8.6 mg, Oral, DAILY, First dose on Thu12/03/23 at 1000, Until Discontinu ed, Routine [facility] acetaminoph en (TYLENOL) tablet 650 mg 12-02 14:47: 07 Yes 650mg 650 mg, Oral, Q6HPRN, Starting on Thu12/03/23 at 0947, Until Discontinu ed, Routine, Pain (scale 1-3) [facility] ipratropium -albuteroL (DUONEB) 0.5 mg-3 mg(2.5 mg base)/3 mL nebulizer solution 3 mL 12-02 14:45: 00 Yes 3mL 3 mL, Inhalation , QID, First dose (after last modificati on) on Thu12/03/23 at 0945, Until Discontinu ed, Routine [facility] tamsulosin (FLOMAX) capsule 0.4 mg 12-02 14:00: 00 Yes .4mg 0.4 mg, Oral, DAILY, First dose on Thu12/03/23 at 0900, Until Discontinu ed, Routine [facility] DULoxetine (CYMBALTA) capsule 30 mg 12-02 14:00: 00 Yes 30mg 30 mg, Oral, DAILY, First dose on Thu12/03/23 at 0900, Until Discontinu ed, Routine [facility] digoxin (LANOXIN) tablet 125 mcg 12-02 14:00: 00 Yes 125ug 125 mcg, Oral, DAILY, First dose on Thu12/03/23 at 0900, Until Discontinu ed [facility] aspirin chewable tablet 81 mg 12-02 14:00: 00 Yes 81mg 81 mg, Oral, DAILY, First dose on Thu12/03/23 at 0900, Until Discontinu ed, Routine [facility] furosemide (LASIX) tablet 40 mg [...] at 0830, Routine [facility] Potassium Bicarb-Citr ic Acid (EFFER-K) [...] Thu12/03/23 at 0800, Until Discontinu ed, Routine [facility] divalproex ER (DEPAKOTE ER) 24 hr tablet 1,000 mg 12-02 13:00: 00 Yes 1000mg 1,000 mg, Oral, Q12H, First dose on Thu12/03/23 at 0800, Until Discontinu ed, Routine [facility] cyclobenzap rine (FLEXERIL) tablet 5 mg 12-02 13:00: 00 Yes 5mg 5 mg, Oral, TID, First dose on Thu12/03/23 at 0800, Until Discontinu ed, Routine [facility] KCL (KLOR-CON M20) tablet 40 mEq 12-02 12:15: 00 12-02 14:24 :00 No 40meq 40 mEq, Oral, ONCE, 1 dose, On Thu12/03/23 at 0715, Routine [facility] KCL (KLOR-CON M20) tablet 20 mEq 12-02 04:00: 00 12-02 04:07 :00 No 20meq 20 mEq, Oral, ONCE, 1 dose, On Thu12/02/23 at 2300, Routine [facility] furosemide (LASIX) injection 40 mg 12-02 03:15: 00 12-02 02:36 :00 No 40mg 40 mg, Slow IV Push, ONCE, 1 dose, On Thu12/02/23 at 2215, Routine [facility] glucagon (GLUCAGEN DIAGNOSTIC KIT) injection 1 mg 12-02 02:54: 39 Yes 1mg 1 mg, Intramuscu lar, PRN, Starting on Thu12/02/23 at 2154, Until Discontinu ed, MICHAEL, Blood Glucose < or = 70 mg/dL and patient is NPO, unable to swallow or has mental changes. [facility] dextrose 50 % in water (D50W) injection 25 mL 2024-0 5-16 02:54: 38 Yes 25mL 25 mL, Slow IV Push, PRN, Starting on Thu12/02/23 at 2154, Until Discontinu ed, MICHAEL, Blood Glucose < or = 70 mg/dL and patient is NPO, unable to swallow or has mental status changes. [facility] atorvastati n (LIPITOR) tablet 40 mg 12-02 02:00: 00 Yes 40mg 40 mg, Oral, QHS, First dose on Thu12/02/23 at 2100, Until Discontinu ed, Routine [facility] apixaban (ELIQUIS) tablet 5 mg 12-02 01:45: 00 02-28 00:59 :00 No [id number] 5mg 5 mg, Oral, BID, 176 doses, First dose on Thu12/02/23 at 2045, Last dose on Thu02/28/24 at 0800, Routine, Indication s: DVT/PE [facility] albuterol (PROVENTIL) 2.5 mg /3 mL (0.083 %) nebulizer solution 2.5 mg 12-02 01:40: 57 Yes 2.5mg [facility] ondansetron (ZOFRAN (PF)) injection 4 mg 12-02 01:02: 39 Yes 4mg 4 mg, Slow IV Push, Q6HPRN, Nausea and Vomiting (N/V), Starting on Thu12/02/23 at 2001, Doses of ondansetro n 16 mg and above need to be administer ed via IV piggyback. For Dose >=24mg ECG monitoring is advisable. [facility] lisinopriL 2.5 mg tablet 12-02 00:00: 00 Yes [id number] 2.5mg Take 1 tablet by mouth in the morning. [facility] acetaminoph en (OFIRMEV) IV piggyback 1,000 mg 12-01 22:15: 00 12-01 21:51 :00 No 1000mg 1,000 mg, IV Piggyback, at 400 mL/hr Administer over 15 Minutes, ONCE, 1 dose, On Thu12/02/23 at 1715, Routine, Is the patient strict NPO and unable to tolerate oral medication s? Yes [facility] iopamidol (ISOVUE 370-500 mL) injection 85 mL 12-01 19:15: 00 12-01 19:33 :00 No [id number] 85mL 85 mL, Intravenou s, ONCE, 1 dose, On Thu12/02/23 at 1415, Routine [facility] FENTanyl PF (SUBLIMAZE (PF)) injection 25 mcg 12-01 18:30: 00 12-01 19:38 :00 No 25ug 25 mcg, Slow IV Push, ONCE, 1 dose, On Thu12/02/23 at 1330, STAT [facility] NaCl 0.9% (NS) bolus infusion 1,000 mL 12-01 18:15: 00 12-01 21:00 :00 No 1000mL at 999 mL/hr, 1,000 mL, IV Infusion, ONCE, 1 dose, On Thu12/02/23 at 1315, STAT [facility] DULoxetine 30 mg capsule 11-28 00:00: 00 Yes [id number] 30mg Take 1 capsule by mouth in the morning. [facility] digoxin 125 mcg tablet 11-28 00:00: 00 Yes [id number] .125mg Take 1 tablet by mouth in the morning. [facility] tamsulosin 0.4 mg 24 hr capsule 11-28 00:00: 00 02-27 04:59 :00 No [id number] .4mg Take 1 capsule by mouth in the morning for 90 days. [facility] metoprolol succinate XL 50 mg 24 hr tablet 11-28 00:00: 00 12-02 00:00 :00 No [id number] 50mg Take 1 tablet by mouth in the morning. [facility] lisinopriL 5 mg tablet 11-28 00:00: 00 12-02 00:00 :00 No [id number] 5mg Take 1 tablet by mouth in the morning. [facility] spironolact one 25 mg tablet 11-28 00:00: 00 12-02 00:00 :00 No [id number] 50mg Take 2 tablets by mouth in the morning. [facility] metoprolol succinate XL (TOPROL XL) tablet 50 mg 11-27 14:00: 00 Yes 50mg 50 mg, Oral, DAILY, First dose (after last modificati on) on Thu11/28/23 at 0900, Until Discontinu ed, Routine [facility] KCL (KLOR-CON M20) tablet 40 mEq 11-27 12:30: 00 11-27 13:39 :00 No 40meq 40 mEq, Oral, ONCE, 1 dose, On Thu11/28/23 at 0730, Routine [facility] potassium chloride in water (KCL) 20 mEq/100 mL RTU IVPB 20 mEq 11-27 11:00: 00 11-27 13:40 :00 No 20meq 20 mEq, IV Piggyback, ONCE, 1 dose, On Thu11/28/23 at 0600, 100 mL [facility] clonazePAM (KLONOPIN) tablet 0.5 mg 11-27 02:45: 00 Yes .5mg 0.5 mg, Oral, QHS, First dose on Thu11/27/23 at 2145, Until Discontinu ed, Routine [facility] lacosamide (VIMPAT) tablet 100 mg 11-27 01:00: 00 Yes 100mg 100 mg, Oral, BID, First dose (after last modificati on) on Thu11/27/23 at 2000, Until Discontinu ed, Routine [facility] gabapentin 100 mg capsule 11-27 00:00: 00 Yes [id number] 100mg Take 1 capsule by mouth in the morning and 1 capsule at noon and 1 capsule in the evening. [facility] divalproex ER 500 mg 24 hr tablet 11-27 00:00: 00 04-03 00:00 :00 No [id number] 1000mg Take 2 tablets by mouth every 12 (twelve) hours. [facility] apixaban 5 mg tablet 11-27 00:00: 00 03-01 04:59 :00 No [id number] Take 2 tablets by mouth 2 (two) times daily for 3 days, THEN 1 tablet 2 (two) times daily for 90 days. Indication s: history of deep vein thrombosis [facility] furosemide 40 mg tablet 11-27 00:00: 00 12-14 00:00 :00 No [id number] 40mg Take 1 tablet by mouth every morning and evening. [facility] lacosamide (VIMPAT) 200 mg in NaCl 0.9% (NS) 50 mL piggyback 11-26 18:45: 00 11-26 23:04 :00 No 200mg 200 mg, IV Piggyback, ONCE, 1 dose, On Thu11/27/23 at 1345, Administer over 30 Minutes, 50 mL [facility] furosemide (LASIX) tablet 40 mg 11-26 14:00: 00 Yes 40mg 40 mg, Oral, QAM+PM, First dose on Thu11/27/23 at 0900, Until Discontinu ed, Routine [facility] divalproex ER (DEPAKOTE ER) 24 hr tablet 1,000 mg 11-26 13:00: 00 Yes 1000mg 1,000 mg, Oral, Q12H, First dose (after last modificati on) on Thu11/27/23 at 0800, Until Discontinu ed, Routine [facility] furosemide (LASIX) injection 40 mg 11-26 01:00: 00 11-26 01:57 :00 No 40mg 40 mg, Slow IV Push, BID, 1 dose, First dose (after last modificati on) on Thu11/26/23 at 2000, Routine [facility] divalproex ER (DEPAKOTE ER) 24 hr [...] 1 dose, On Thu11/26/23 at 1330, Routine [facility] thiamine (VITAMIN B1) 100 mg in NaCl 0.9% (NS) piggyback 11-25 18:00: 00 11-30 13:59 :00 No 100mg IV Piggyback, DAILY, 5 doses, First dose on Thu11/26/23 at 1300, Last dose on Thu11/30/23 at 0900, 50 mL [facility] digoxin (LANOXIN) tablet 125 mcg 11-25 16:30: 00 Yes 125ug 125 mcg, Oral, DAILY, First dose on Thu11/26/23 at 1130, Until Discontinu ed, Routine [facility] metoprolol succinate XL (TOPROL XL) tablet 25 mg 11-25 16:15: 00 11-27 13:09 :49 No 25mg 25 mg, Oral, DAILY, First dose on Thu11/26/23 at 1115, Until Discontinu ed, Routine [facility] apixaban (ELIQUIS) tablet 10 mg 11-25 [...] Routine, Indication s: DVT/PE [Order 2 End] [facility] furosemide (LASIX) injection 40 mg 2023-11-25 [...] Thu11/25/23 at 1600, Until Discontinu ed, Routine [facility] apixaban (ELIQUIS) tablet 5 mg 2023-0 11-24 16:30: 00 11-24 16:18 :00 No 5mg 5 mg, Oral, ONCE, 1 dose, On Thu11/25/23 at 1130, Routine, Indication s: DVT/PE [facility] apixaban (ELIQUIS) tablet 5 mg 2023-11-24 14:00: 00 11-24 15:40 :42 No 5mg 5 mg, Oral, BID, 11 doses, First dose (after last modificati on) on Thu11/25/23 at 0900, Last dose on Thu11/30/23 at 0800, Routine, Indication s: DVT/PE [facility] divalproex ER (DEPAKOTE ER) 24 hr tablet 1,000 mg 2023-11-24 13:00: 00 11-25 17:41 :19 No 1000mg 1,000 mg, Oral, Q12H, First dose (after last modificati on) on Thu11/25/23 at 0800, Until Discontinu ed, Routine [facility] ondansetron (ZOFRAN (PF)) injection 4 mg 2023-0 11-24 03:45: 00 11-24 02:49 :00 No 4mg 4 mg, Slow IV Push, ONCE, On Thu11/24/23 at 2245, For 1 dose, Doses of ondansetro n 16 mg and above need to be administer ed via IV piggyback. For Dose >=24mg ECG monitoring is advisable. [facility] divalproex (DEPAKOTE) delayed release tablet 500 mg 11-24 03:45: 00 11-24 04:49 :00 No 500mg 500 mg, Oral, ONCE, 1 dose, On Thu11/24/23 at 2245, Routine [facility] nitroglycer in (NITROSTAT) sublingual tablet 0.4 mg 11-24 02:36: 01 Yes .4mg 0.4 mg, Sublingual , Q5MIN PRN, Starting on Thu11/24/23 at 2136, Until Discontinu ed, Routine, Chest pain [facility] nystatin (NILSTAT) 100,000 unit/mL suspension 500,000 Units 11-24 01:15: 00 11-26 20:18 :35 No 5mL 500,000 Units (5 mL), Oral, QID, First dose on Thu11/24/23 at 2014, Until Discontinu ed, Routine [facility] acetaminoph en-codeine (TYLENOL #3) 300-30 mg tablet 1 tablet 11-24 01:07: 37 Yes 1{tbl} 1 tablet, Oral, Q6HPRN, Starting on Thu11/24/23 at 2006, Until Discontinu ed, Routine, Pain (scale 4-6) [facility] iopamidol (ISOVUE 370-500 mL) injection 100 mL 11-23 23:15: 00 11-23 22:15 :00 No [id number] 100mL 100 mL, Intravenou s, ONCE, 1 [...] Notify MD if MAP < 65 mmHG. [facility] polyethylen e glycol 3350 powder 17 g 11-23 19:15: 00 Yes 17g 17 g, Oral, DAILY, First dose on Thu11/24/23 at 1415, Until Discontinu ed, Routine [facility] ipratropium -albuteroL (DUONEB) 0.5 mg-3 mg(2.5 mg base)/3 mL nebulizer solution 3 mL 11-23 19:00: 00 Yes 3mL 3 mL, Inhalation , TID, First dose (after last modificati on) on Thu11/24/23 at 1400, Until Discontinu ed, Routine [facility] ondansetron (ZOFRAN (PF)) injection 4 mg 11-23 17:16: 00 11-23 17:24 :00 No 4mg 4 mg, Slow IV Push, ONCE, On Thu11/24/23 at 1230, For 1 dose, Doses of ondansetro n 16 mg and above need to be administer ed via IV piggyback. For Dose >=24mg ECG monitoring is advisable. [facility] apixaban (ELIQUIS) tablet 10 mg 11-23 15:45: 00 11-24 13:38 :20 No 10mg 10 mg, Oral, BID, 14 doses, First dose on Thu11/24/23 at 1045, Last dose on Thu11/30/23 at 2000, Routine, Indication s: DVT/PE [facility] milrinone in 5 % dextrose (PRIMACOR) 20 mg/100 mL (200 mcg/mL) infusion RTU 11-23 15:45: 00 11-23 20:33 :33 No .125ug/ kg/min 0.125 mcg/kg/min ?94.5 kg (3.5438 mL/hr, rounded to 3.54 mL/hr), IV Infusion, CONTINUOUS , Starting on Thu11/24/23 at 1045, 1. Dose to be adjusted by physician or provider. 2. Notify MD if MAP < 65 mmHG. [facility] HYDROcodone -acetaminop hen (NORCO 5) 5-325 mg tablet 1 tablet 11-23 14:28: 00 11-23 15:37 :00 No 1{tbl} 1 tablet, Oral, ONCE, 1 dose, On Thu11/24/23 at 0930, Routine [facility] hydrALAZINE (APRESOLINE ) tablet 10 mg 11-23 12:30: 00 11-25 13:28 :25 No 10mg 10 mg, Oral, Q8H, First dose on Thu11/24/23 at 0730, Until Discontinu ed, Routine [facility] iohexoL (OMNIPAQUE 180-20 mL) injection 11-22 20:31: 56 11-22 20:32 :10 No ONCE INTRA PROCEDURE, Starting on Thu11/23/23 at 1531, Until Thu11/23/23 at 1532, Routine, CV Intraproce dure [facility] nitroglycer in (TRIDIL) 2 mg in 10 mL D5W for Cardiac Cath 11-22 19:32: 38 11-22 20:32 :10 No ONCE INTRA PROCEDURE, Starting on Thu11/23/23 at 1432, Until Thu11/23/23 at 1532, Routine, CV Intraproce dure [facility] heparin 1,000 unit/mL injection 11-22 19:31: 28 11-22 20:32 :10 No ONCE INTRA PROCEDURE, Starting on Thu11/23/23 at 1431, Until Thu11/23/23 at 1532, Routine, CV Intraproce dure [facility] midazolam (VERSED) injection 11-22 19:24: 54 11-22 20:32 :10 No ONCE INTRA PROCEDURE, Starting on Thu11/23/23 at 1424, Until Thu11/23/23 at 1532, Routine, CV Intraproce dure [facility] FENTanyl PF (SUBLIMAZE (PF)) injection 11-22 19:21: 00 11-22 20:32 :10 No ONCE INTRA PROCEDURE, Starting on Thu11/23/23 at 1421, Until Thu11/23/23 at 1532, Routine, CV Intraproce dure [facility] lidocaine 1% (PF) (XYLOCAINE) injection 11-22 19:20: 00 11-22 20:32 :10 No ONCE INTRA PROCEDURE, Starting on Thu11/23/23 at 1420, Until Thu11/23/23 at 1532, Routine, CV Intraproce dure [facility] furosemide 20 mg tablet 11-22 15:47: 27 11-27 00:00 :00 No 20mg Take 1 tablet by mouth every morning and evening. [facility] milrinone in 5 % dextrose (PRIMACOR) 20 mg/100 mL (200 mcg/mL) infusion RTU 11-22 15:45: 00 11-23 15:32 :54 No .25ug/k g/min 0.25 mcg/kg/min ?94.5 kg (7.0875 mL/hr, rounded to 7.09 mL/hr), IV Infusion, CONTINUOUS , Starting on Thu11/23/23 at 1045, 1. Dose to be adjusted by physician or provider. 2. Notify MD if MAP < 65 mmHG. [facility] DULoxetine (CYMBALTA) capsule 30 mg 11-22 14:00: 00 11-27 00:00 :00 No 30mg 30 mg, Oral, DAILY, First dose on Thu11/23/23 at 0900, Until Discontinu ed, Routine [facility] magnesium oxide (MAG-OX 400) tablet 400 mg 11-22 13:45: 00 11-22 14:00 :00 No 400mg 400 mg, Oral, ONCE, 1 dose, On Thu11/23/23 at 0845, Routine [facility] hydrOXYzine (ATARAX) tablet 50 mg 11-22 13:42: 15 Yes 50mg 50 mg, Oral, Q8HPRN, Starting on Thu11/23/23 at 0842, Until Discontinu ed, Routine, Anxiety [facility] KCL (KLOR-CON M20) tablet 40 mEq 11-22 10:45: 00 11-22 10:20 :00 No 40meq 40 mEq, Oral, ONCE, 1 dose, On Thu11/23/23 at 0545, Routine [facility] mirtazapine (REMERON) tablet 15 mg 11-22 02:00: 00 Yes 15mg 15 mg, Oral, QHS, First dose on Thu11/22/23 at 2100, Until Discontinu ed, [facility] atorvast[facility] n (LIPITOR) tablet 40 mg 11-22 [...] Until Discontinu ed, Routine [facility] milrinone in 5 % dextrose (PRIMACOR) 20 mg/100 mL (200 mcg/mL) infusion RTU 11-21 19:30: 00 11-22 15:38 :58 No .125ug/ kg/min 0.125 mcg/kg/min ?94.5 kg (3.5438 mL/hr, rounded to 3.54 mL/hr), IV Infusion, CONTINUOUS , Starting on Thu11/22/23 at 1430, 1. Dose to be adjusted by physician or provider. 2. Notify MD if MAP < 65 mmHG. [facility] diazePAM (VALIUM) injection 2 mg 11-21 19:28: 00 11-21 20:15 :00 No 2mg 2 mg, Intravenou s, ONCE, 1 dose, On 11/22/23 at 1430, Routine [facility] gabapentin (NEURONTIN) capsule 100 mg 11-21 19:00: 00 Yes 100mg 100 mg, Oral, TID, First dose on 11/22/23 at 1400, Until Discontinu ed, Routine [facility] furosemide (LASIX) injection 40 mg 11-21 19:00: 00 11-24 18:54 :28 No 40mg 40 mg, Slow IV Push, TID, First dose on 11/22/23 at 1400, Until Discontinu ed, Routine [facility] ondansetron (ZOFRAN-ODT ) disintegrat ing tablet 4 mg 11-21 18:45: 00 11-21 18:25 :00 No 4mg 4 mg, Oral, ONCE, 1 dose, On Thu11/22/23 at 1345, [facility] perflutren lipid microsphere s (DEFINITY) injection 2 mL 11-21 16:45: 00 11-21 16:45 :00 No [id number] 2mL 2 mL, IV Push, ONCE, 1 dose, On Thu11/22/23 at 1145, Routine [facility] furosemide (LASIX) injection 40 mg 11-21 14:15: 00 11-21 18:23 :20 No 40mg 40 mg, Slow IV Push, BID, 2 doses, First dose on 11/22/23 at 0915, Last dose on Thu11/22/23 at 2000, Routine [facility] losartan (COZAAR) tablet 25 mg 11-21 14:15: 00 11-21 20:14 :04 No 25mg 25 mg, Oral, DAILY, First dose on 11/22/23 at 0915, Until Discontinu ed, Routine [facility] tamsulosin (FLOMAX) capsule 0.4 mg 11-21 14:00: 00 Yes .4mg 0.4 mg, Oral, DAILY, First dose on 11/22/23 at 0900, Until Discontinu ed, Routine [facility] pantoprazol e (PROTONIX) EC tablet 40 mg 11-21 14:00: 00 Yes 40mg 40 mg, Oral, DAILY, First dose on 11/22/23 at 0900, Until Discontinu ed, Routine [facility] aspirin chewable tablet 81 mg 11-21 14:00: 00 Yes 81mg 81 mg, Oral, DAILY, First dose on 11/22/23 at 0900, Until Discontinu ed, Routine [facility] predniSONE (DELTASONE) tablet 40 mg 11-21 14:00: 00 11-25 13:14 :00 No 40mg 40 mg, Oral, DAILY, 5 doses, First dose on 11/22/23 at 0900, Last dose on Arpita 11/26/23 at 0900, Routine [facility] iopamidol (ISOVUE 370-500 mL) injection 80 mL 11-21 14:00: 00 11-21 14:00 :00 No [id number] 80mL 80 mL, Intravenou s, ONCE, 1 dose, On 11/22/23 at 0900, Routine [facility] Sliding Scale Insulin - Lispro (HumaLOG) 11-21 13:00: 00 Yes Subcutaneo us, TID MEALS+HS, First dose on Thu11/22/23 at 0800, Until Discontinu ed, Routine [facility] divalproex ER (DEPAKOTE ER) 24 hr tablet 500 mg 11-21 13:00: 00 11-24 02:43 :24 No 500mg 500 mg, Oral, Q12H, First dose on 11/22/23 at 0800, Until Discontinu ed, Routine [facility] ipratropium -albuteroL (DUONEB) 0.5 mg-3 mg(2.5 mg base)/3 mL nebulizer solution 3 mL 11-21 09:00: 00 11-23 15:56 :58 No 3mL 3 mL, Inhalation , Q4H, First dose on Thu11/22/23 at 0400, Until Discontinu ed, Routine [facility] furosemide (LASIX) injection 40 mg 11-21 07:45: 00 11-21 07:15 :00 No 40mg 40 mg, Slow IV Push, ONCE, 1 dose, On Thu11/22/23 at 0245, Routine [facility] sodium chloride 7% (HYPER-IRVIN) nebulizer solution 4 mL 11-21 07:00: 00 11-23 14:32 :09 No 4mL 4 mL, Inhalation , DAILY, First dose on Thu11/22/23 at 0200, Until Discontinu ed, Routine [facility] [...] ant therapy. Range, Dosing and Testing: FOR [facility], AND [facility] ONLY - aPTT < 35: [...] once therapeuti c levels are reached. FOR [facility] ONLY - aPTT < 40: [...] INITIAL BOLUS OR INITIAL INFUSION RATE. [facility] heparin (1,000 unit/mL, 10 mL vial) for Rebolusing 11-21 06:43: 39 11-23 15:32 :54 No 3000U FOR REBOLUSING , Starting on 11/22/23 at 0143, Until Tu11/24/23 at 1032, Routine, Dosing based on aPPT testing parameters (refer to continuous heparin drip order). [facility] glucagon (GLUCAGEN DIAGNOSTIC KIT) injection 1 mg 11-21 06:36: 57 Yes 1mg [facility] dextrose 50 % in water (D50W) injection 25 mL 11-21 06:36: 57 Yes 25mL [facility] acetaminoph en (TYLENOL) tablet 650 mg 11-21 06:36: 44 Yes 650mg 650 mg, Oral, Q6HPRN, Starting on 11/22/23 at 0136, Until Discontinu ed, Routine, Pain (scale 1-3) [facility] ondansetron (ZOFRAN (PF)) injection 4 mg 11-21 04:45: 00 11-21 03:46 :00 No 4mg 4 mg, Slow IV Push, ONCE, 1 dose, On 11/21/23 at 2345, MICHAEL [facility] acetaminoph en (TYLENOL) tablet 975 mg 11-21 04:45: 00 11-21 03:44 :00 No 975mg 975 mg, Oral, ONCE, 1 dose, On 11/21/23 at 2345, MICHAEL [facility] HEPARIN SODIUM (PORCINE) 1,000 UNIT/ML BOLUS ACS ORDER SET 11-21 04:15: 00 11-21 04:33 :00 No 4000U 4,000 Units, IV Push, ONCE, 1 dose, On 11/21/23 at 2315, MICHAEL [facility] morpHINE (4 mg/mL) injection 4 mg 11-21 04:15: 00 11-21 04:27 :00 No 4mg 4 mg, Slow IV Push, ONCE, 1 dose, On 11/21/23 at 2315, STAT [facility] methylpredn isolone sod succ (SOLU-MEDRO L) injection 125 mg 11-21 04:15: 00 11-21 03:24 :00 No 125mg 125 mg, Slow IV Push, ONCE NOW, 1 dose, On 11/21/23 at 2315, MICHAEL [facility] heparin 25,000 Units/250 mL [...] ant therapy. Range, Dosing and Testing: FOR [facility], AND [facility] ONLY - aPTT < 35: [...] ADJUST INITIAL BOLUS OR INITIAL INFUSION RATE. [facility] ipratropium -albuteroL (DUONEB) 0.5 mg-3 mg(2.5 mg base)/3 mL nebulizer solution 3 mL 11-21 04:00: 00 11-21 02:51 :00 No 3mL 3 mL, Inhalation , ONCE, 1 dose, On 11/21/23 at 2300, MICHAEL [facility] ipratropium -albuteroL (DUONEB) 0.5 mg-3 mg(2.5 mg base)/3 mL nebulizer solution 3 mL 11-21 03:30: 00 11-21 02:37 :00 No 3mL 3 mL, Inhalation , ONCE, 1 dose, On 11/21/23 at 2230, MICHAEL [facility] NaCl 0.9% (NS) bolus infusion 500 mL 11-21 03:15: 00 11-21 04:14 :00 No 500mL at 999 mL/hr, 500 mL, IV Infusion, ONCE, 1 dose, On 11/21/23 at 2215, STAT [facility] mirtazapine 15 mg tablet 09-30 00:00: 00 Yes 15mg Take 1 tablet by mouth at bedtime. [facility] Metformin HCl 500 MG oral Tablet 09-29 14:28: 11 Yes 500mg Take 1 tablet (500 mg total) by mouth daily (with breakfast) . [facility] Ibuprofen (MOTRIN) 200 MG oral Tablet 09-29 14:27: 32 09-29 00:00 :00 No 200mg Q.[id number] 3D Take 1 tablet (200 mg total) by mouth every 8 hours as needed for pain. [facility] Fluticasone -Umeclidin- Vilant (Trelegy Ellipta) 100-62.5-25 MCG/ACT inhalation AEROSOL POWDER, BREATH ACTIVATED 09-29 00:00: 00 Yes [id number] 1{puff} Inhale 1 puff into the lungs daily. [facility] Carvedilol 12.5 MG oral Tablet 09-29 00:00: 00 Yes [id number] 12.5mg Take 1 tablet (12.5 mg total) by mouth in the morning and 1 tablet (12.5 mg total) in the evening. Take with meals. [facility] Duloxetine HCl [address] Particles 09-29 00:00: 00 Yes [id number] 20mg Take 1 capsule (20 mg total) by mouth daily. [facility] Acetaminoph en-Codeine (TYLENOL/CO DEINE #3) 300-30 MG oral Tablet 09-29 00:00: 00 Yes [id number] 1{tbl} Q.25D Take 1 tablet by mouth every 6 hours as needed for pain. [facility] Clonazepam 1 MG oral Tablet 09-29 00:00: 00 Yes [id number] 1mg QD Take 1 tablet (1 mg total) by mouth nightly as needed for anxiety. [facility] spironolact one 25 mg tablet 09-29 00:00: 00 11-27 00:00 :00 No 25mg Take 1 tablet by mouth in the morning and 1 tablet in the evening. [facility] metFORMIN 500 mg tablet 09-28 00:00: 00 12-14 00:00 :00 No 500mg Take 1 tablet by mouth in the morning. [facility] Carvedilol 12.5 MG oral Tablet 09-28 [...] MG oral Tablet 09-11 00:00: 00 Yes [id number] 15mg QD Take 1 tablet (15 mg total) by mouth nightly as needed. [facility] Acetaminoph en-Codeine (TYLENOL/CO DEINE #3) 300-30 MG oral Tablet 09-11 00:00: 00 09-29 00:00 :00 No [id number] 1{tbl} Q.25D Take 1 tablet by mouth every 6 hours as needed for pain. [facility] DULoxetine (CYMBALTA) 60 MG capsule 09-09 00:00: 00 10-08 23:59 :00 No 60mg QD Take 1 capsule (60 mg total) by mouth daily for 30 days. [facility] varenicline (CHANTIX) 1 mg tablet 09-08 10:51: 03 Yes 1mg Q.5D Take 1 tablet (1 mg total) by mouth 2 (two) times daily Give with meals and with a full glass of water.. [facility] atorvastati n (LIPITOR) 20 MG tablet 09-08 10:51: 03 Yes 20mg QD Take 1 tablet (20 mg total) by mouth daily. [facility] Cyanocobala min (Vitamin B-12) 1000 MCG oral Tablet 09-08 00:00: 00 10-08 04:59 :00 No 1000ug Take 1 tablet (1,000 mcg total) by mouth daily. [facility] lidocaine (LIDODERM) 4 % patch 09-08 00:00: 00 10-07 23:59 :00 No 3{patch } Q24H Place 3 patches onto the skin daily for 30 days. [facility] metoprolol succinate (TOPROL-XL) 25 MG 24 hr tablet 09-07 16:47: 05 09-07 00:00 :00 No 25mg QD Take 1 tablet (25 mg total) by mouth daily. [facility] albuterol HFA (VENTOLIN HFA) 90 mcg/actuati on inhaler 09-07 16:47: 05 09-07 00:00 :00 No 1{puff} Inhale 1 puff by mouth via inhaler every 6 (six) hours as needed for Wheezing. [facility] fluticasone -umeclidin- vilanter (Trelegy Ellipta) 200-62.5-25 mcg DsDv 09-07 16:47: 05 09-07 00:00 :00 No QD Inhale by mouth via inhaler daily. [facility] Albuterol HFA 108 (90 Base) [...] total) by mouth daily for 30 days. [facility] polyethylen e glycol (GLYCOLAX) 17 gram packet 09-07 00:00: 00 10-06 23:59 :00 No 17g Q.5D Take 17 g by mouth 2 (two) times daily for 30 days. [facility] gabapentin (NEURONTIN) 400 MG capsule 09-07 00:00: 00 10-06 23:59 :00 No 400mg Q.[id number] 3D Take 1 capsule (400 mg total) by mouth 3 (three) times daily for 30 days. [facility] furosemide (LASIX) 20 MG tablet 09-07 00:00: 00 10-06 23:59 :00 No 20mg QD Take 1 tablet (20 mg total) by mouth daily for 30 days. [facility] fluticasone -umeclidin- vilanter (Trelegy Ellipta) 200-62.5-25 mcg DsDv 09-07 00:00: 00 10-06 23:59 :00 No 1{inhal ation} QD Inhale 1 Inhalation by mouth via inhaler daily for 30 days. [facility] metoprolol succinate (TOPROL-XL) 25 MG 24 hr tablet 09-07 00:00: 00 10-06 23:59 :00 No 25mg QD Take 1 tablet (25 mg total) by mouth daily for 30 days. [facility] lacosamide (VIMPAT) 100 mg in NaCl 0.9% (NS) 50 mL piggyback 08-12 21:15: 00 08-12 21:23 :00 No 100mg 100 mg, IV Piggyback, ONCE, 1 dose, On Thu08/12/23 at 1515, Administer over 30 Minutes, 50 mL
Facu lty member approving Restricted medication : MJ BRYAN [facility] Dicyclomine HCl 20 MG oral Tablet 08-06 [...] total) by mouth daily for 5 days. [facility] varenicline (CHANTIX) 1 mg tablet 2022-07 19:45: 32 Yes 1mg Q.5D Take 1 tablet (1 mg total) by mouth 2 (two) times daily Give with meals and with a full glass of water.. [facility] atorvastati n (LIPITOR) 20 MG tablet 2022-07 19:45: 32 Yes 20mg QD Take 1 tablet (20 mg total) by mouth daily. [facility] metoprolol succinate (TOPROL-XL) 25 MG 24 hr tablet 2022-07 19:45: 32 09-07 00:00 :00 No 25mg QD Take 1 tablet (25 mg total) by mouth daily. [facility] albuterol HFA (VENTOLIN HFA) 90 mcg/actuati on inhaler 2022-07 19:45: 32 09-07 00:00 :00 No 1{puff} Inhale 1 puff by mouth via inhaler every 6 (six) hours as needed for Wheezing. [facility] fluticasone -umeclidin- vilanter (Trelegy Ellipta) 200-62.5-25 mcg DsDv 2022-07 19:45: 32 09-07 00:00 :00 No QD Inhale by mouth via inhaler daily. [facility] acetaminoph en-codeine (TYLENOL #3) 300-30 mg per tablet 2022-07 18:02: 00 06-16 00:00 :00 No 1{tbl} Take 1 tablet by mouth every 4 (four) hours as needed for Pain. [facility] DULoxetine (CYMBALTA) 30 MG capsule 2022-07 00:00: 00 09-08 00:00 :00 No 30mg QD Take 1 capsule (30 mg total) by mouth daily for 90 days. [facility] metroNIDAZO LE (FLAGYL) 500 MG tablet 2022-07 00:00: 00 07-04 23:59 :00 No 500mg Take 1 tablet (500 mg total) by mouth every 8 (eight) hours for 18 days. [facility] ciprofloxac in HCl (CIPRO) 500 MG tablet 2022-07 00:00: 00 07-04 23:59 :00 No 500mg Q.5D Take 1 tablet (500 mg total) by mouth 2 (two) times daily for 18 days. [facility] cyclobenzap rine (FLEXERIL) 10 MG tablet 2022-07 00:00: 00 06-26 23:59 :00 No 10mg Q.[id number] 3D Take 1 tablet (10 mg total) by mouth 3 (three) times daily for 10 days. [facility] oxyCODONE (OXY-IR) 10 mg tablet 2022-07 00:00: 00 06-26 23:59 :00 No 10mg Take 1 tablet (10 mg total) by mouth every 8 (eight) hours as needed for up to 10 days. Max Daily Amount: 30 mg [facility] nystatin (MYCOSTATIN ) 100,000 unit/mL suspension 2022-07 00:00: 00 06-21 23:59 :00 No [id number] Q.25D Take 5 mLs (500,000 Units total) by mouth 4 (four) times daily for 5 days. [facility] dexAMETHaso ne (DECADRON) 2 MG tablet 2022-07 00:00: 00 06-08 23:59 :00 No 1mg Take 0.5 tablets (1 mg total) by mouth 2 (two) times daily with breakfast and dinner for 2 days. [facility] metoprolol succinate (TOPROL-XL) 25 MG 24 hr tablet 2022-07 17:44: 21 Yes 25mg QD Take 1 tablet (25 mg total) by mouth daily. [facility] varenicline (CHANTIX) 1 mg tablet 2022-07 17:44: 21 Yes 1mg Q.5D Take 1 tablet (1 mg total) by mouth 2 (two) times daily Give with meals and with a full glass of water.. [facility] albuterol HFA (VENTOLIN HFA) 90 mcg/actuati on inhaler 2022-07 17:44: 21 Yes 1{puff} Inhale 1 puff by mouth via inhaler every 6 (six) hours as needed for Wheezing. [facility] fluticasone -umeclidin- vilanter (Trelegy Ellipta) 200-62.5-25 mcg DsDv 2022-07 17:44: 21 Yes QD Inhale by mouth via inhaler daily. [facility] atorvastati n (LIPITOR) 20 MG tablet 2022-07 17:44: 21 Yes 20mg QD Take 1 tablet (20 mg total) by mouth daily. [facility] acetaminoph en-codeine (TYLENOL #3) 300-30 mg per tablet 2022-07 17:44: 21 Yes 1{tbl} Take 1 tablet by mouth every 4 (four) hours as needed for Pain. [facility] Naloxone (NARCAN) 4 MG/0.1ML nasal Liquid 2022-07 00:00: 00 Yes 4mg 0.1 mL (4 mg total) as needed. [facility] senna (SENOKOT) 8.6 mg tablet 2022-07 00:00: 00 06-18 23:59 :00 No 17.2mg Q.5D Take 2 tablets (17.2 mg total) by mouth 2 (two) times daily for 14 days. [facility] cyclobenzap rine (FLEXERIL) 10 MG tablet 2022-07 00:00: 00 06-16 00:00 :00 No 10mg Q.[id number] 3D Take 1 tablet (10 mg total) by mouth 3 (three) times daily for 10 days. [facility] methocarbam oL (ROBAXIN) 500 MG tablet 2022-07 00:00: 00 06-16 00:00 :00 No 500mg Q.25D Take 1 tablet (500 mg total) by mouth 4 (four) times daily for 10 days. [facility] lactulose (CHRONULAC) 20 gram/30 mL solution 2022-07 00:00: 00 06-11 23:59 :00 No 20g Q.[id number] 3D Take 30 mLs (20 g total) by mouth 3 (three) times daily for 7 days. [facility] ondansetron (ZOFRAN-ODT ) 4 MG disintegrat ing tablet 2022-07 00:00: 00 06-11 23:59 :00 No 4mg Take 1 tablet (4 mg total) by mouth every 6 (six) hours as needed for up to 7 days. [facility] metoprolol succinate (TOPROL-XL) 25 MG 24 hr tablet 2022-07 15:23: 22 Yes 25mg QD Take 1 tablet (25 mg total) by mouth daily. [facility] varenicline (CHANTIX) 1 mg tablet 2022-07 15:23: 22 Yes 1mg Q.5D Take 1 tablet (1 mg total) by mouth 2 (two) times daily Give with meals and with a full glass of water.. [facility] albuterol HFA (VENTOLIN HFA) 90 mcg/actuati on inhaler 2022-07 15:23: 22 Yes 1{puff} Inhale 1 puff by mouth via inhaler every 6 (six) hours as needed for Wheezing. [facility] fluticasone -umeclidin- vilanter (Trelegy Ellipta) 200-62.5-25 mcg DsDv 2022-07 15:23: 22 Yes QD Inhale by mouth via inhaler daily. [facility] atorvastati n (LIPITOR) 20 MG tablet 2022-07 15:23: 22 Yes 20mg QD Take 1 tablet (20 mg total) by mouth daily. [facility] acetaminoph en-codeine (TYLENOL #3) 300-30 mg per tablet 2022-07 15:23: 22 Yes 1{tbl} Take 1 tablet by mouth every 4 (four) hours as needed for Pain. [facility] acetaminoph en-codeine (TYLENOL #3) 300-30 mg per tablet 2022-07 09:42: 02 Yes 1{tbl} Take 1 tablet by mouth every 4 (four) hours as needed for Pain. Max Daily Amount: 6 tablets [facility] varenicline (CHANTIX) 1 mg tablet 2022-07 09:40: 04 Yes 1mg Q.5D Take 1 tablet (1 mg total) by mouth 2 (two) times daily Give with meals and with a full glass of water.. [facility] albuterol HFA (VENTOLIN HFA) 90 mcg/actuati on inhaler 2022-07 09:40: 04 Yes 1{puff} Inhale 1 puff by mouth via inhaler every 6 (six) hours as needed for Wheezing. [facility] fluticasone -umeclidin- vilanter (Trelegy Ellipta) 200-62.5-25 mcg DsDv 2022-07 09:40: 04 Yes QD Inhale by mouth via inhaler daily. [facility] atorvastati n (LIPITOR) 20 MG tablet 2022-07 09:40: 04 Yes 20mg QD Take 1 tablet (20 mg total) by mouth daily. [facility] metoprolol succinate (TOPROL-XL) 25 MG 24 hr tablet 2022-07 09:13: 28 Yes 25mg QD Take 1 tablet (25 mg total) by mouth daily. [facility] Atorvastati n Calcium 20 MG oral Tablet 2022-07 00:00: 00 Yes 20mg Take 1 tablet (20 mg total) by mouth daily. [facility] metoprolol succinate XL 25 mg 24 hr tablet 2022-07 00:00: 00 11-27 00:00 :00 No 25mg Take 1 tablet by mouth every morning. [facility] Nitroglycer in 0.4 MG sublingual SL [...] tablet (20 mg total) by mouth daily. [facility] aspirin 81 MG EC tablet 04-03 00:00: 00 07-02 23:59 :00 No 81mg QD Take 1 tablet (81 mg total) by mouth daily for 90 days. [facility] divalproex (DEPAKOTE) 500 MG EC tablet 04-03 00:00: 00 07-02 23:59 :00 No 500mg Q.5D Take 1 tablet (500 mg total) by mouth 2 (two) times daily for 90 days. [facility] lisinopriL (PRINIVIL,Z ESTRIL) 5 MG tablet 04-03 00:00: 00 05-28 00:00 :00 No 5mg QD Take 1 tablet (5 mg total) by mouth daily. [facility] clonazePAM (KlonoPIN) 0.5 MG tablet 04-03 00:00: 00 05-03 23:59 :00 No .25mg Take 0.5 tablets (0.25 mg total) by mouth 2 (two) times daily as needed for Anxiety for up to 30 days. Max Daily Amount: 0.5 mg [facility] HYDROcodone -acetaminop hen (NORCO 10-325) 10-325 mg per tablet 04-03 00:00: 00 04-13 23:59 :00 No 1{tbl} Take 1 tablet by mouth every 6 (six) hours as needed for up to 10 days. Max Daily Amount: 4 tablets [facility] methocarbam oL (ROBAXIN) 500 MG tablet 04-03 00:00: 00 04-13 23:59 :00 No 500mg Q.25D Take 1 tablet (500 mg total) by mouth 4 (four) times daily for 10 days. [facility] gabapentin (NEURONTIN) 300 MG capsule 04-02 00:00: 00 04-03 00:00 :00 No 300mg Q.[id number] 3D Take 1 capsule (300 mg total) by mouth 3 (three) times daily for 90 days. [facility] divalproex (DEPAKOTE) 500 MG EC tablet 04-02 00:00: 00 04-03 00:00 :00 No 500mg Q.5D Take 1 tablet (500 mg total) by mouth 2 (two) times daily for 90 days. [facility] clonazePAM (KlonoPIN) 0.5 MG tablet 04-02 00:00: 00 04-03 00:00 :00 No .25mg Take 0.5 tablets (0.25 mg total) by mouth 2 (two) times daily as needed for Anxiety for up to 30 days. Max Daily Amount: 0.5 mg [facility] HYDROcodone -acetaminop hen (NORCO 10-325) 10-325 mg per tablet 04-02 00:00: 00 04-03 00:00 :00 No 1{tbl} Take 1 tablet by mouth every 6 (six) hours as needed for up to 10 days. Max Daily Amount: 4 tablets [facility] methocarbam oL (ROBAXIN) 500 MG tablet 04-02 00:00: 00 04-03 00:00 :00 No 500mg Q.25D Take 1 tablet (500 mg total) by mouth 4 (four) times daily for 10 days. [facility] Metronidazo le 500 MG oral [...] morning and 1 tablet in the evening. [facility] Divalproex Sodium 500 MG oral Tablet Delayed Response 01-14 00:00: 00 Yes 250mg 250 mg. [facility] lacosamide (VIMPAT) 200 mg in NaCl 0.9% (NS) 50 mL piggyback 12-11 19:45: 00 12-11 19:57 :00 No 200mg 200 mg, IV Piggyback, ONCE, 1 dose, On Aripta 12/11/22 at 1445, Administer over 30 Minutes, 50 mL
Facu lty member approving Restricted medication : Alfonso ALVARADO [facility] ketorolac (TORADOL) injection 15 mg 12-11 18:15: 00 12-11 17:25 :00 No 15mg 15 mg, Slow IV Push, ONCE, 1 dose, On Arpita 12/11/22 at 1315, MICHAEL [facility] iopamidol (ISOVUE 370-500 mL) injection 80 mL 12-11 16:30: 00 12-11 16:27 :00 No [id number] 80mL 80 mL, Intravenou s, ONCE, 1 dose, On Arpita 12/11/22 at 1130, Routine [facility] nitroglycer in (NITROL) 2 % ointment 0.5 Inch 12-11 15:30: 00 12-11 14:31 :00 No .5[in_u s] 0.5 Inch, Transderma l (Apply To Skin), ONCE, 1 dose, On Thu12/11/22 at 1030, [facility] aspirin chewable tablet 324 mg 12-11 15:30: 00 12-11 14:30 :00 No 324mg 324 mg, Oral, ONCE, 1 dose, On Thu12/11/22 at 1030, Routine [facility] ondansetron (ZOFRAN (PF)) injection 4 mg 12-11 15:30: 00 12-11 14:29 :00 No 4mg 4 mg, Slow IV Push, ONCE, 1 dose, On Thu12/11/22 at 1030, [facility] LORazepam (ATIVAN) injection 1 mg 12-11 15:00: 00 12-11 14:57 :00 No 1mg 1 mg, Slow IV Push, ONCE, 1 dose, On Thu12/11/22 at 1000, STAT [facility] Lacosamide (VIMPAT) 100 mg tablet 12-11 00:00: 00 Yes [id number] 100mg Take 1 tablet by mouth in the morning and 1 tablet in the evening. [facility] acetaminoph en-codeine (TYLENOL #3) 300-30 mg tablet 1 tablet 11-18 05:30: 00 11-18 05:30 :00 No 1{tbl} 1 tablet, Oral, ONCE, 1 dose, On Thu11/18/22 at 0030, [facility] methocarbam oL (ROBAXIN) tablet 1,000 mg 11-18 05:30: 00 11-18 05:30 :00 No 1000mg 1,000 mg, Oral, ONCE, 1 dose, On Thu11/18/22 at 0030, [facility] ondansetron (ZOFRAN (PF)) injection 4 mg 11-18 04:45: 00 11-18 03:38 :00 No 4mg 4 mg, Slow IV Push, ONCE, 1 dose, On Thu11/17/22 at 2345, [facility] morpHINE (4 mg/mL) injection 4 mg 11-18 03:45: 00 11-18 03:38 :00 No 4mg 4 mg, Slow IV Push, ONCE, 1 dose, On Thu11/17/22 at 2245, Routine [facility] methocarbam oL (ROBAXIN) injection 1,000 mg 11-18 00:30: 00 11-17 23:47 :00 No 1000mg 1,000 mg, Intravenou s, ONCE, 1 dose, On Thu11/17/22 at 1930, MICHAEL [facility] methocarbam oL 500 mg tablet 11-18 00:00: 00 12-02 00:00 :00 No [id number] 1000mg Take 2 tablets by mouth 4 (four) times daily as needed for Pain (scale 7-10). [facility]aminoph en-codeine 300-60 mg tablet 11-18 00:00: 00 11-26 04:59 :00 No [id number] 1{tbl} Take 1 tablet by mouth every 6 (six) hours as needed for Pain for up to 7 days. Indication s: acute pain [facility] ketorolac (TORADOL) injection 15 mg 11-18 00:00: 00 11-17 23:08 :00 No 15mg 15 mg, Slow IV Push, ONCE, 1 dose, On Thu11/17/22 at 1900, Routine [facility] morpHINE (4 mg/mL) injection 4 mg 11-17 23:45: 00 11-17 23:49 :00 No 4mg 4 mg, Slow IV Push, ONCE, 1 dose, On Thu11/17/22 at 1845, Routine [facility] ondansetron (ZOFRAN (PF)) injection 4 mg 11-17 23:15: 00 11-17 23:06 :00 No 4mg 4 mg, Slow IV Push, ONCE, 1 dose, On Thu11/17/22 at 1815, MICHAEL [facility] lisinopriL (PRINIVIL,Z ESTRIL) tablet 10 mg 08-02 15:00: 00 Yes 10mg 10 mg, Oral, DAILY, First dose on Thu08/02/22 at 0900, Until Discontinu ed, Routine [facility] predniSONE (DELTASONE) tablet 40 mg 08-02 15:00: 00 08-07 14:59 :00 No 40mg 40 mg, Oral, DAILY, 5 doses, First dose on Thu08/02/22 at 0900, Last dose on Thu08/06/22 at 0900, Routine [facility] morpHINE (2 mg/mL) injection 2 mg 08-02 03:29: 15 Yes 2mg 2 mg, Slow IV Push, Q4HPRN, Starting on Thu08/01/22 at 2129, Until Discontinu ed, Routine, Pain (scale 7-10) [facility] levETIRAcet am (KEPPRA) in NACL (ISO-OS) 1,000 mg/100 mL RTU 08-02 00:00: 00 Yes 1000mg 1,000 mg, IV Piggyback, Q12H, First dose on Thu08/01/22 at 1800, Until Discontinu ed, Administer over 15 Minutes, 100 mL [facility] MULTIVITAMI N ORAL 08-01 23:49: 34 Yes 1{tbl} Take 1 Tab by mouth daily. [facility] omega-3 fatty acids-vitam in E (FISH OIL) 1,000 mg capsule 08-01 23:49: 34 Yes 1g Take 1 g by mouth daily. [facility] loratadine (CLARITIN LIQUI-GEL) 10 mg capsule 08-01 23:49: 34 Yes Take by mouth daily. [facility] ondansetron 4 mg tablet 08-01 23:49: 34 Yes 4mg Take 1 tablet by mouth every 8 (eight) hours as needed for Nausea and Vomiting (N/V). [facility] omega-3 fatty acids-vitam in E (FISH OIL) 1,000 mg capsule 08-01 23:49: 34 Yes 1g Take 1 g by mouth daily. [facility] pantoprazol e 40 mg EC tablet 08-01 23:49: 34 11-27 00:00 :00 No 40mg Take 40 mg by mouth daily. [facility] benzonatate (TESSALON PERLES) capsule 100 mg 08-01 20:00: 00 Yes 100mg 100 mg, Oral, Q8H, First dose on Thu08/01/22 at 1400, Until Discontinu ed, Routine [facility] ipratropium -albuteroL (DUONEB) 0.5 mg-3 mg(2.5 mg base)/3 mL nebulizer solution 3 mL 08-01 18:00: 00 Yes 3mL 3 mL, Inhalation , QID, First dose on Thu08/01/22 at 1200, Until Discontinu ed, Routine [facility] ipratropium -albuteroL (DUONEB) 0.5 mg-3 mg(2.5 mg base)/3 mL nebulizer solution 3 mL 08-01 17:07: 07 Yes 3mL 3 mL, Inhalation , QIDPRN, Starting on Thu08/01/22 at 1107, Until Discontinu ed, MICHAEL, Wheezing, Shortness of Breath [facility] sulfur hexafluorid e microsphr (LUMASON) injection 5 mL 08-01 17:00: 00 08-01 17:00 :00 No [id number] 5mL 5 mL, Intravenou s, ONCE, 1 dose, On Thu08/01/22 at 1100, Routine
research assistant member approving Restricted medication : KYLEE DIEGO [facility] pantoprazol e (PROTONIX) EC tablet 40 mg 08-01 15:00: 00 Yes 40mg 40 mg, Oral, DAILY, First dose on Thu08/01/22 at 0900, Until Discontinu ed, Routine [facility] aspirin chewable tablet 81 mg 08-01 15:00: 00 Yes 81mg 81 mg, Oral, DAILY, First dose on Thu08/01/22 at 0900, Until Discontinu ed, Routine [facility] amLODIPine (NORVASC) tablet 10 mg 08-01 15:00: 00 Yes 10mg 10 mg, Oral, DAILY, First dose on Thu08/01/22 at 0900, Until Discontinu ed, Routine [facility] levETIRAcet am (KEPPRA) tablet 500 mg 08-01 14:00: 00 08-01 23:56 :35 No 500mg 500 mg, Oral, BID, First dose on Thu08/01/22 at 0800, Until Discontinu ed, Routine [facility] carvediloL (COREG) tablet 6.25 mg 08-01 14:00: 00 08-01 17:29 :13 No 6.25mg 6.25 mg, Oral, BID MEALS, First dose on Thu08/01/22 at 0800, Until Discontinu ed, Routine [facility] levETIRAcet am (KEPPRA) in NACL (ISO-OS) 1,000 mg/100 mL RTU 08-01 06:45: 00 08-01 06:32 :00 No 1000mg 1,000 mg, IV Piggyback, ONCE, 1 dose, On Thu08/01/22 at 0045, Administer over 15 Minutes, 100 mL [facility] LORazepam (ATIVAN) injection 1 mg 08-01 05:52: 54 Yes 1mg 1 mg, Slow IV Push, Q4HPRN, Starting on Thu07/31/22 at 2352, Until Discontinu ed, Routine, Seizures, Agitation, Anxiety, ETOH / Cocaine Withdrawl [facility] foLIC acid (FOLATE) tablet 1 mg 08-01 05:45: 00 Yes 1mg 1 mg, Oral, DAILY, First dose on Thu07/31/22 at 2345, Until Discontinu ed, Routine [facility] thiamine (VITAMIN B1) tablet 100 mg 08-01 05:45: 00 Yes 100mg 100 mg, Oral, DAILY, First dose on Thu07/31/22 at 2345, Until Discontinu ed, Routine [facility] LORazepam (ATIVAN) injection 0.5 mg 08-01 [...] at 1832, Until Discontinu ed, Routine, Itching [facility] enoxaparin (LOVENOX) injection 40 mg [...] Until Discontinu ed, Routine, Pain (scale 7-10) [facility] HYDROcodone -acetaminop hen (NORCO 5) 5-325 mg tablet 1 tablet 07-31 22:01: 34 08-02 22:00 :34 No 1{tbl} 1 tablet, Oral, Q6HPRN, Starting on Thu07/31/22 at 1601, Until 08/02/22 at 1600, Routine, Pain (scale 4-6) [facility] acetaminoph en (TYLENOL) tablet 650 mg 07-31 22:01: 33 Yes 650mg 650 mg, Oral, Q6HPRN, Starting on [place] 07/31/22 at 1601, Until Discontinu ed, Routine, Pain (scale 1-3) [facility] ketorolac (TORADOL) injection 15 mg 07-31 21:45: 00 07-31 20:50 :00 No 15mg 15 mg, Slow IV Push, ONCE, 1 dose, On [place] 07/31/22 at 1545, Routine [facility] ondansetron (ZOFRAN (PF)) injection 4 mg 07-31 21:00: 00 07-31 20:47 :00 No 4mg 4 mg, Slow IV Push, ONCE, 1 dose, On [place] 07/31/22 at 1500, MICHAEL [facility] furosemide (LASIX) injection 40 mg 07-31 20:15: 00 Yes 40mg 40 mg, Slow IV Push, Q12H, First dose on [place] 07/31/22 at 1415, Until Discontinu ed, Routine [facility] methylpredn isolone sod succ (SOLU-MEDRO L) injection 125 mg 07-31 19:30: 00 07-31 18:54 :00 No 125mg 125 mg, Slow IV Push, ONCE NOW, 1 dose, On [place] 07/31/22 at 1330, MICHAEL [facility] ipratropium -albuteroL (DUONEB) 0.5 mg-3 mg(2.5 mg base)/3 mL nebulizer solution 3 mL 07-31 19:30: 00 07-31 18:48 :00 No 3mL 3 mL, Inhalation , ONCE, 1 dose, On [place] 07/31/22 at 1330, MICHAEL [facility] pantoprazol e 40 mg EC tablet 07-31 17:15: 40 Yes 40mg Take 40 mg by mouth daily. [facility] MULTIVITAMI N ORAL 07-31 15:50: 57 Yes 1{tbl} Take 1 Tab by mouth daily. [facility] loratadine (CLARITIN LIQUI-GEL) 10 mg capsule 07-31 15:50: 57 Yes Take by mouth daily. [facility] ondansetron 4 mg tablet 07-31 15:50: 57 Yes 4mg Take 4 mg by mouth every 8 (eight) hours as needed. [facility] omega-3 fatty acids-vitam in E (FISH OIL) 1,000 mg capsule 07-31 15:21: 27 Yes 1g Take 1 g by mouth daily. [facility] TAKE ONE (1) TABLET(S) BY MOUTH THREE TIMES A DAY NEEDED. 07-28 00:00: 00 No Methylpredn isolone 4 mg tablet 2021-07 00:00: 00 05-12 04:59 :00 No [id number] 4mg Take 1 tablet through enteral tube in the morning for 1 dose. [facility] Methylpredn isolone 4 mg tablet 2021-07 00:00: 00 05-11 04:59 :00 No [id number] 4mg Take 1 tablet through enteral tube every 12 (twelve) hours for 2 doses. [facility] MULTIVITAMI N ORAL 2021-07 14:44: 48 Yes 1{tbl} Take 1 Tab by mouth daily. [facility] omega-3 fatty acids-vitam in E (FISH OIL) 1,000 mg capsule 2021-07 14:44: 48 Yes 1g Take 1 g by mouth daily. [facility] loratadine (CLARITIN LIQUI-GEL) 10 mg capsule 2021-07 14:44: 48 Yes Take by mouth daily. [facility] ondansetron (ZOFRAN) 4 mg tablet 2021-07 14:44: 48 Yes 4mg Take 4 mg by mouth every 8 (eight) hours as needed. [facility] pantoprazol e (PROTONIX) 40 mg EC tablet 2021-07 14:44: 48 Yes 40mg Take 40 mg by mouth daily. [facility] DULoxetine 30 mg capsule 2021-07 14:00: 00 Yes 30mg Take 1 capsule by mouth in the morning. [facility] divalproex (DEPAKOTE) EC tablet 1,000 mg [...] Last dose on Thu05/08/22 at 2000, Routine [facility] acetaminoph en-codeine (TYLENOL #3) 300-30 mg tablet 1 tablet 2021-07 04:07: 01 Yes 1{tbl} 1 tablet, Oral, Q4HPRN, Starting on Thu05/07/22 at 2307, Until Discontinu ed, Routine, Pain (scale 7-10) [facility] morpHINE (2 mg/mL) injection 2 mg 2021-07 03:03: 15 Yes 2mg 2 mg, Slow IV Push, Q4HPRN, Starting on Thu05/07/22 at 2203, Until Discontinu ed, Routine, Pain (scale 7-10) [facility] LORazepam (ATIVAN) tablet 1 mg 2021-07 00:02: 18 Yes 1mg 1 mg, Oral, Q6HPRN, Starting on Thu05/07/22 at 1902, Until Discontinu ed, Routine, Anxiety [facility] cyclobenzap rine 5 mg tablet 2021-07 00:00: 00 Yes [id number] 5mg Take 1 tablet by mouth in the morning and 1 tablet at noon and 1 tablet in the evening. [facility] DULoxetine (CYMBALTA) 30 mg capsule 2021-07 00:00: 06-08 05:59 :00 No [id number] 60mg Take 2 capsules by mouth in the morning for 30 days. [facility] divalproex (DEPAKOTE) 250 mg EC tablet 2021-07 00:00: 00 06-08 05:59 :00 No [id number] 750mg Take 3 tablets by mouth every 8 (eight) hours for 30 days. [facility] LOR[facility]epam 1 mg tablet 2021-07 00:00: 00 05-19 04:59 :00 No [id number] 1mg Take 1 tablet by mouth every 6 (six) hours as needed for Anxiety or Agitation for up to 10 days. [facility] acetaminoph en-codeine 300-30 mg tablet 2021-07 00:00: 00 05-16 04:59 :00 No [id number] 1{tbl} Take 1 tablet by mouth every 4 (four) hours as needed for Pain (scale 7-10) for up to 7 days. Indication s: acute pain [facility] Methylpredn isolone 4 mg tablet 2021-07 00:00: 00 05-10 04:59 :00 No [id number] 4mg Take 1 tablet by mouth every 8 (eight) hours for 3 doses. [facility] divalproex (DEPAKOTE) EC tablet 750 mg 2021-07 01:00: 00 05-08 09:40 :23 No 750mg 750 mg, Oral, BID, First dose on Thu05/06/22 at 2000, Until Discontinu ed, Routine [facility] levETIRAcet am (KEPPRA) tablet 1,500 mg 2021-07 13:00: 00 05-06 18:38 :22 No 1500mg 1,500 mg, Oral, BID, First dose (after last modificati on) on Thu05/06/22 at 0800, Until Discontinu ed, Routine [facility] levETIRAcet am (KEPPRA) in NACL (ISO-OS) 1,000 mg/100 mL RTU 2021-07 05:00: 00 05-06 05:46 :00 No 1000mg 1,000 mg, IV Piggyback, ONCE, 1 dose, On Thu05/06/22 at 0000, Administer over 15 Minutes, 100 mL [facility] methocarbam oL (ROBAXIN) tablet 500 mg 2021-07 02:15: 00 05-06 23:21 :42 No 500mg 500 mg, Oral, QID, First dose on Thu05/05/22 at 2115, Until Discontinu ed, Routine [facility] LORazepam (ATIVAN) tablet 2 mg 2021-07 01:30: 00 05-06 01:03 :00 No 2mg 2 mg, Oral, ONCE, 1 dose, On Thu05/05/22 at 2030, Routine [facility] levETIRAcet am (KEPPRA) tablet 1,000 mg 2021-07 01:00: 00 05-06 04:48 :06 No 1000mg 1,000 mg, Oral, BID, First dose on Thu05/05/22 at 2000, Until Discontinu ed, Routine [facility] enoxaparin (LOVENOX) injection 40 mg 2021-07 00:15: 00 Yes 40mg 40 mg, Subcutaneo us, Q24H, First dose on Thu05/05/22 at 1915, Until Discontinu ed, Routine [facility] levETIRAcet am (KEPPRA) in NACL (ISO-OS) 1,000 mg/100 mL RTU 2021-07 19:45: 00 05-05 20:05 :00 No 1000mg 1,000 mg, IV Piggyback, ONCE, 1 dose, On Thu05/05/22 at 1445, Administer over 15 Minutes, 100 mL [facility] clonazePAM (KLONOPIN) tablet 0.5 mg 2021-07 19:30: 00 Yes .5mg 0.5 mg, Oral, BID, First dose on Thu05/05/22 at 1430, Until Discontinu ed, Routine [facility] ibuprofen (IBU) tablet 600 mg 2021-07 19:30: 00 Yes 600mg 600 mg, Oral, TID MEALS, First dose on Thu05/05/22 at 1430, Until Discontinu ed, Routine [facility] gabap[facility] (NEURONTIN) capsule 300 mg 2021-07 19:30: 00 Yes 300mg 300 mg, Oral, TID, First dose on Thu05/05/22 at 1430, Until Discontinu ed, Routine [facility] cyclobenzap rine (FLEXERIL) tablet 5 mg 2021-07 19:30: 00 Yes 5mg 5 mg, Oral, TID, First dose on Thu05/05/22 at 1430, Until Discontinu ed, Routine [facility] acetaminoph en (TYLENOL) tablet 1,000 mg 2021-07 19:30: 00 Yes 1000mg 1,000 mg, Oral, Q8H, First dose on Thu05/05/22 at 1430, Until Discontinu ed, [facility] at 1418, Routine, Pain (scale 7-10) [facility] ondansetron (ZOFRAN (PF)) injection 4 mg 2021-07 06:49: 57 Yes 4mg 4 mg, Slow IV Push, Q6HPRN, Starting on Thu05/05/22 at 0149, Until Discontinu ed, Routine, Nausea and Vomiting (N/V) [facility] HYDROcodone -acetaminop hen (NORCO 5) 5-325 mg tablet 1 tablet 2021-07 06:49: 41 05-05 10:32 :14 No 1{tbl} 1 tablet, Oral, Q6HPRN, Starting on Thu05/05/22 at 0149, Until Thu05/05/22 at 0532, Routine, Pain (scale 7-10) [facility] acetaminoph en (TYLENOL) tablet 325 mg 2021-07 06:49: 39 05-05 19:18 :52 No 325mg 325 mg, Oral, Q4HPRN, Starting on Thu05/05/22 at 0149, Until Thu05/05/22 at 1418, Routine, Pain (scale 4-6) [facility] ondansetron (ZOFRAN) tablet 4 mg 2021-07 04:00: 00 05-05 03:26 :00 No 4mg 4 mg, Oral, ONCE, 1 dose, On 05/04/22 at 2300, Routine [facility] morpHINE (2 mg/mL) injection 2 mg 2021-07 04:00: 00 05-05 03:26 :00 No 2mg 2 mg, Slow IV Push, ONCE, 1 dose, On 05/04/22 at 2300, Routine [facility] aspirin 81 mg chewable tablet 04-16 00:00: 00 Yes [id number] 81mg Take 1 tablet by mouth in the morning. [facility] MULTIVITAMI N ORAL 04-15 17:39: 14 Yes 1{tbl} Take 1 Tab by mouth daily. [facility] omega-3 fatty acids-vitam in E (FISH OIL) 1,000 mg capsule 04-15 17:39: 14 Yes 1g Take 1 g by mouth daily. [facility] loratadine (CLARITIN LIQUI-GEL) 10 mg capsule 04-15 17:39: 14 Yes Take by mouth daily. [facility] ondansetron (ZOFRAN) 4 mg tablet 04-15 17:39: 14 Yes 4mg Take 4 mg by mouth every 8 (eight) hours as needed. [facility] pantoprazol e (PROTONIX) 40 mg EC tablet 04-15 17:39: 14 Yes 40mg Take 40 mg by mouth daily. [facility] lisinopril- hydrochloro thiazide 20-12.5 mg per tablet 04-15 15:58: 35 04-15 00:00 :00 No 1{tbl} Take 1 tablet by mouth daily. [facility] levetiracet am (KEPPRA ORAL) 04-15 15:58: 35 04-15 00:00 :00 No Take by mouth. [facility] acetaminoph en-codeine (TYLENOL #4) 300-60 mg tablet 1 tablet 04-15 05:39: 23 04-15 14:39 :42 No 1{tbl} 1 tablet, Oral, Q6HPRN, Starting on Thu04/15/22 at 0039, Until Thu04/15/22 at 0939, Routine, Pain (scale 4-6), Pain (scale 1-3) [facility] LORazepam (ATIVAN) tablet 2 mg 04-15 03:30: 00 04-15 10:27 :00 No 2mg 2 mg, Oral, ONCE, 1 dose, On Thu04/14/22 at 2230, Routine [facility] levETIRAcet am (KEPPRA) tablet 1,000 mg 04-15 02:45: 00 Yes 1000mg 1,000 mg, Oral, BID, First dose (after last modificati on) on Thu04/14/22 at 2145, Until Discontinu ed, Routine [facility] ketorolac (TORADOL) injection 15 mg 04-15 02:13: 00 04-15 02:22 :00 No 15mg 15 mg, Slow IV Push, ONCE, 1 dose, On Thu04/14/22 at 2115, Routine [facility] levETIRAcet am 1,000 mg tablet 04-15 00:00: 00 Yes [id number] 1000mg Take 1 tablet by mouth in the morning and 1 tablet in the evening. [facility] atorvastati n 40 mg tablet 04-15 00:00: 00 01-09 00:00 :00 No [id number] 40mg Take 1 tablet by mouth at bedtime. [facility] lidocaine 5 % (700 mg/patch) patch 04-15 00:00: 00 04-23 04:59 :00 No [id number] 1{patch } Apply 1 Patch to area(s) in the morning for 7 days. [facility] HYDROcodone -acetaminop hen 5-325 mg tablet 04-15 00:00: 00 04-21 04:59 :00 No [id number] 1{tbl} Take 1 tablet by mouth every 6 (six) hours as needed for Pain (scale 7-10) for up to 5 days. Indication s: acute pain [facility] lidocaine (LIDODERM) 5 % (700 mg/patch) patch 1 Patch 04-14 21:45: 29 Yes 1{patch } 1 Patch, Topical, Administer over 12 Hours, [id number], Starting on Thu04/14/22 at 1645, Until Discontinu ed, Routine, Localized pain [facility] aspirin chewable tablet 81 mg 04-14 21:30: 00 Yes 81mg 81 mg, Oral, DAILY, First dose on Thu04/14/22 at 1630, Until Discontinu ed, Routine [facility] acetaminoph en (TYLENOL) tablet 650 mg 04-14 21:29: 25 Yes 650mg 650 mg, Oral, Q6HPRN, Starting on Thu04/14/22 at 1629, Until Discontinu ed, Routine, Pain (scale 1-3), Temp > 38.5 C, Temp > 37.5 C [facility] HYDROcodone -acetaminop hen (NORCO) 10-325 mg tablet 1 tablet 04-14 21:29: 02 04-15 05:39 :41 No 1{tbl} 1 tablet, Oral, Q6HPRN, Starting on Thu04/14/22 at 1629, Until Thu04/15/22 at 0039, Routine, Pain (scale 7-10), Pain (scale 4-6) [facility] sulfur hexafluorid e microsphr (LUMASON) injection 5 mL 04-14 16:45: 00 04-14 16:45 :00 No [id number] 5mL 5 mL, Intravenou s, ONCE, 1 dose, On Thu04/14/22 at 1145, Routine
research assistant member approving Restricted medication : MADELINE PIERRE [facility] clopidogreL (PLAVIX) 75 mg tablet 75 mg 04-14 14:00: 00 Yes 75mg 75 mg, Oral, DAILY, First dose on Thu04/14/22 at 0900, Until Discontinu ed, Routine [facility] pantoprazol e (PROTONIX) EC tablet 40 mg 04-14 14:00: 00 Yes 40mg 40 mg, Oral, DAILY, First dose on Thu04/14/22 at 0900, Until Discontinu ed, Routine [facility] atorvastati n (LIPITOR) tablet 40 mg 04-14 02:00: 00 Yes 40mg 40 mg, Oral, QHS, First dose on Thu04/13/22 at 2100, Until Discontinu ed, Routine [facility] LORazepam (ATIVAN) tablet 1 mg 04-14 01:30: 00 04-14 01:45 :00 No 1mg 1 mg, Oral, ONCE, 1 dose, On Thu04/13/22 at 2030, Routine [facility] methocarbam oL (ROBAXIN) tablet 500 mg 04-14 01:00: 00 Yes 500mg 500 mg, Oral, QID, First dose on Thu04/13/22 at 2000, Until Discontinu ed, Routine [facility] heparin (porcine) injection 5,000 Units 04-14 01:00: [...] 38.5 C, Temp > 37.5 C [facility] lidocaine (LIDODERM) 5 % (700 [...] ONCE, 1 dose, On Thu04/13/22 at 1430, [facility] iopamidol (ISOVUE 370-500 mL) injection 100 mL 04-13 18:31: 00 04-13 18:32 :00 No [id number] 100mL 100 mL, Intravenou s, ONCE, 1 dose, On 04/13/22 at 1345, Routine [facility] NaCl 0.9% (NS) injection 5 mL 04-13 18:14: 11 Yes 5mL 5 mL, Slow IV Push, PRN - SEE INSTRUCTIO NS, Starting on [place] 04/13/22 at 1314, Until Discontinu ed, 10 mL [facility] aspirin chewable tablet 324 mg 11-24 14:00: 00 Yes 324mg 324 mg, Oral, DAILY, First dose on [place] 11/24/21 at 0900, Until Discontinu ed, Routine [facility] metoclopram iker HCl (REGLAN) injection 10 mg 11-23 22:30: 00 11-23 21:24 :00 No 10mg 10 mg, Slow IV Push, ONCE, 1 dose, On 11/23/21 at 1730, [facility] acetaminoph en (TYLENOL) tablet 1,000 mg 11-23 22:15: 00 11-23 21:09 :00 No 1000mg 1,000 mg, Oral, ONCE, 1 dose, On 11/23/21 at 1715, [facility] ondansetron (ZOFRAN (PF)) injection 4 mg 11-23 21:45: 00 11-23 20:30 :00 No 4mg 4 mg, Slow IV Push, ONCE, 1 dose, On 11/23/21 at 1645, [facility] NaCl 0.9% (NS) bolus infusion 1,000 mL 11-23 21:30: 00 11-23 21:56 :00 No 1000mL at 999 mL/hr, 1,000 mL, IV Infusion, ONCE, 1 dose, On 11/23/21 at 1630, [facility] LORazepam (ATIVAN) injection 4 mg 11-23 21:30: 00 11-23 20:23 :00 No 4mg 4 mg, Slow IV Push, ONCE, 1 dose, On 11/23/21 at 1630, STAT [facility] levETIRAcet am (KEPPRA) in NACL (ISO-OS) 1,500 mg/100 mL RTU 11-23 21:30: 00 11-23 20:47 :00 No 1500mg 1,500 mg, IV Piggyback, ONCE, 1 dose, On 11/23/21 at 1630, Administer over 15 Minutes, 100 mL [facility] Dose Unknown 2021-0 4-08 00:00: [...] y
Durat ion of Therapy: 7 days [facility] morpHINE injection 4 mg 03-17 01:58: 00 03-17 02:13 :00 No 4mg 4 mg, Slow IV Push, ONCE, 1 dose, 03/16/21 at 2100, STAT [facility] ondansetron (ZOFRAN (PF)) injection 4 mg 03-17 01:58: 00 03-17 02:12 :00 No 4mg 4 mg, Slow IV Push, ONCE, 1 dose, 03/16/21 at 2100, MICHAEL [facility] ipratropium -albuteroL (DUONEB) 0.5 mg-3 mg(2.5 mg base)/3 mL nebulizer solution 3 mL 03-17 01:57: 00 03-17 02:15 :00 No 3mL 3 mL, Inhalation , ONCE, 1 dose, 03/16/21 at 2100, [facility] NaCl 0.9% (NS) IV infusion 1,000 mL 03-17 01:57: 00 03-17 03:07 :00 No 1000mL at 999 mL/hr, Intravenou s, ONCE, 1 dose, 03/16/21 at 2100, [facility] methylpredn isolone sod succ (SOLU-MEDRO L) injection 125 mg 03-17 01:57: 00 03-17 02:11 :00 No 125mg 125 mg, Slow IV Push, ONCE, 1 dose, 03/16/21 at 2100, STAT [facility] levoFLOXaci n 500 mg tablet 03-17 00:00: 00 03-24 04:59 :00 No [id number] 500mg Take 1 tablet by mouth daily for 6 days. [facility] predniSONE 10 mg tablet 03-17 00:00: 00 03-22 04:59 :00 No [id number] 30mg Take 3 tablets by mouth daily for 4 days. [facility] albuterol (VENTOLIN) inhaler 4 Puff 03-15 01:45: 00 03-15 00:44 :00 No [id number] 4{puff} 4 Puff, Inhalation , ONCE, 1 dose, Arpita 03/14/21 at 2044, Routine [facility] dexamethaso ne (DECADRON) injection 10 mg 03-15 01:45: 00 03-15 00:45 :00 No [id number] 10mg 10 mg, Intramuscu lar, ONCE, 1 dose, Arpita 03/14/21 at 2044, Routine [facility] albuterol 2.5 mg /3 mL (0.083 %) nebulizer solution 03-15 00:00: 00 01-09 00:00 :00 No [id number] 2.5mg Inhale 3 mL every 4 (four) hours as needed for Wheezing or Shortness of Breath. [facility] levETIRAcet am (KEPPRA) in NACL (ISO-OS) 1,000 mg/100 mL RTU 02-19 20:15: 00 02-19 19:30 :00 No 1000mg 1,000 mg, IV Infusion, ONCE, 1 dose, 02/19/21 at 1515, Administer over 15 Minutes, 100 mL [facility] levetiracet am (KEPPRA ORAL) 02-19 19:45: 33 Yes Take by mouth. [facility] LISINOPRIL- HYDROCHLORO THIAZIDE ORAL 02-19 19:41: 15 02-19 00:00 :00 No Take by mouth. [facility] dicyclomine (BENTYL) injection 20 mg 02-19 19:15: 00 02-19 19:04 :00 No 20mg 20 mg, Intramuscu lar, ONCE, 1 dose, 02/19/21 at 1415, Routine [facility] proMETHazin e (PHENERGAN) 25 mg in NaCl 0.9% (NS) 50 mL piggyback 02-19 19:15: 00 02-19 19:03 :00 No 25mg 25 mg, IV Piggyback, ONCE, 1 dose, 02/19/21 at 1415, 50 mL [facility] morpHINE injection 4 mg 02-19 17:15: 00 02-19 17:05 :00 No 4mg 4 mg, Slow IV Push, ONCE, 1 dose, 02/19/21 at 1215, STAT [facility] NaCl 0.9% (NS) bolus infusion 1,000 mL 02-19 17:15: 00 02-19 19:04 :00 No 1000mL at 999 mL/hr, 1,000 mL, IV Infusion, ONCE, 1 dose, 02/19/21 at 1215, STAT [facility] ondansetron (ZOFRAN (PF)) injection 4 mg 02-19 17:00: 00 02-19 15:59 :00 No 4mg 4 mg, Slow IV Push, ONCE, 1 dose, 02/19/21 at 1200, MICHAEL [facility] iopamidol (ISOVUE 370-500 mL) injection 100 mL 02-19 16:35: 00 02-19 16:45 :00 No [id number] 100mL 100 mL, Intravenou s, ONCE, 1 dose, 02/19/21 at 1145, Routine [facility] levetiracet am (KEPPRA ORAL) 02-19 14:45: 33 Yes Take by mouth. [facility] dicyclomine 20 mg tablet 02-19 00:00: 00 01-09 00:00 :00 No [id number] 20mg Take 1 tablet by mouth 4 (four) times daily as needed for Abdominal pain. [facility] proMETHazin e 25 mg tablet 02-19 00:00: 00 11-27 00:00 :00 No [id number] 25mg Take 1 tablet by mouth every 6 (six) hours as needed for Nausea and Vomiting (N/V). [facility] ZONISAMIDE 100 mg capsule 11-15 00:00: 00 Yes TAKE 1 CAPSULE BY MOUTH TWICE A DAY [facility] ondansetron (ZOFRAN) 4 mg tablet 02-09 20:05: 01 Yes 4mg Take 4 mg by mouth every 8 (eight) hours as needed. [facility] pantoprazol e (PROTONIX) 40 mg EC tablet 02-09 20:05: 01 Yes 40mg Take 40 mg by mouth daily. [facility] LISINOPRIL- HYDROCHLORO THIAZIDE ORAL 02-09 20:05: 01 Yes Take by mouth. [facility] lisinopril- hydrochloro thiazide 20-12.5 mg per tablet 02-09 20:03: 30 Yes 1{tbl} Take 1 tablet by mouth daily. [facility] omega-3 fatty acids-vitam in E (FISH OIL) 1,000 mg capsule 02-09 19:59: 52 Yes 1g Take 1 g by mouth daily. [facility] MULTIVITAMI N ORAL 02-09 19:58: 14 Yes 1{tbl} Take 1 Tab by mouth daily. [facility] loratadine (CLARITIN LIQUI-GEL) 10 mg capsule 02-09 19:58: 14 Yes Take by mouth daily. [facility] ondansetron (ZOFRAN) 4 mg tablet 02-09 15:05: 01 Yes 4mg Take 4 mg by mouth every 8 (eight) hours as needed. [facility] pantoprazol e (PROTONIX) 40 mg EC tablet 02-09 15:05: 01 Yes 40mg Take 40 mg by mouth daily. [facility] lisinopril- hydrochloro thiazide 20-12.5 mg per tablet 02-09 15:03: 30 Yes 1{tbl} Take 1 tablet by mouth daily. [facility] omega-3 fatty acids-vitam in E (FISH OIL) 1,000 mg capsule 02-09 14:59: 52 Yes 1g Take 1 g by mouth daily. [facility] MULTIVITAMI N ORAL 02-09 14:58: 14 Yes 1{tbl} Take 1 Tab by mouth daily. [facility] loratadine (CLARITIN LIQUI-GEL) 10 mg capsule 02-09 14:58: 14 Yes Take by mouth daily. [facility] proMETHazin e (PHENERGAN) 25 mg tablet 11-20 00:00: 00 Yes 25mg Take 1 tablet by mouth every 6 (six) hours as needed for Nausea and Vomiting (N/V). [facility] carvedilol (COREG) 6.25 mg tablet 09-19 00:00: 00 12-02 00:00 :00 No 6.25mg Take 1 Tab by mouth 2 (two) times daily with meals. [facility] amLODIPine (NORVASC) 10 mg tablet 09-19 00:00: 00 12-02 00:00 :00 No 10mg Take 1 Tab by mouth daily. [facility] lisinopril (PRINIVIL,Z ESTRIL) 40 mg tablet 09-19 00:00: 00 11-27 00:00 :00 No 40mg Take 1 Tab by mouth daily. [facility] Immunizations Ordered Immunization Name Filled Immunization Name Date Status Comments Source SARS-COV-2 COVID-19 PFIZER BA-SUCROSE VACCINE (ROSE TOP) 2022-02-19 00:00:00 Completed [facility] SARS-COV-2 COVID-19 PFIZER BA-SUCROSE VACCINE (ROSE TOP) 2022-02-19 00:00:00 Completed [facility] SARS-COV-2 COVID-19 PFIZER BA-SUCROSE VACCINE (ROSE TOP) 2022-02-19 00:00:00 Completed [facility] SARS-COV-2 COVID-19 PFIZER BA-SUCROSE VACCINE (ROSE TOP) 2022-02-19 00:00:00 Completed [facility] SARS-COV-2 COVID-19 PFIZER BA-SUCROSE VACCINE (ROSE TOP) 2022-02-19 00:00:00 Completed [facility] SARS-COV-2 COVID-19 PFIZER BA-SUCROSE VACCINE (ROSE TOP) 2022-02-19 00:00:00 Completed [facility] SARS-COV-2 COVID-19 PFIZER BA-SUCROSE VACCINE (ROSE TOP) 2022-02-19 00:00:00 Completed [facility] SARS-COV-2 COVID-19 PFIZER BA-SUCROSE VACCINE (ROSE TOP) 2022-02-19 00:00:00 Completed [facility] SARS-COV-2 COVID-19 PFIZER BA-SUCROSE VACCINE (ROSE TOP) 2022-02-19 00:00:00 Completed [facility] SARS-COV-2 COVID-19 PFIZER BA-SUCROSE VACCINE (ROSE TOP) 2022-02-19 00:00:00 Completed [facility] SARS-COV-2 COVID-19 PFIZER VACCINE 2021-05-24 00:00:00 Completed SARS-COV-2 COVID-19 PFIZER VACCINE 2021-05-24 00:00:00 Completed [facility] SARS-COV-2 COVID-19 PFIZER VACCINE 2021-05-24 00:00:00 Completed [facility] SARS-COV-2 COVID-19 PFIZER VACCINE 2021-05-24 00:00:00 Completed [facility] SARS-COV-2 COVID-19 PFIZER VACCINE 2021-05-24 00:00:00 Completed [facility] SARS-COV-2 COVID-19 PFIZER VACCINE 2021-05-24 00:00:00 Completed [facility] SARS-COV-2 COVID-19 PFIZER VACCINE 2021-05-24 00:00:00 Completed [facility] SARS-COV-2 COVID-19 PFIZER VACCINE 2021-05-24 00:00:00 Completed [facility] SARS-COV-2 COVID-19 PFIZER VACCINE 2021-05-24 00:00:00 Completed [facility] SARS-COV-2 COVID-19 PFIZER VACCINE 2021-05-24 00:00:00 Completed [facility] SARS-COV-2 COVID-19 PFIZER VACCINE 2021-05-24 00:00:00 Completed [facility] SARS-COV-2 COVID-19 PFIZER VACCINE 2021-05-24 00:00:00 Completed [facility] SARS-COV-2 COVID-19 PFIZER VACCINE 2021-05-03 00:00:00 Completed [facility] SARS-COV-2 COVID-19 PFIZER VACCINE 2021-05-03 00:00:00 Completed [facility] SARS-COV-2 COVID-19 PFIZER VACCINE 2021-05-03 00:00:00 Completed [facility] SARS-COV-2 COVID-19 PFIZER VACCINE 2021-05-03 00:00:00 Completed [facility] SARS-COV-2 COVID-19 PFIZER VACCINE 2021-05-03 00:00:00 Completed [facility] SARS-COV-2 COVID-19 PFIZER VACCINE 2021-05-03 00:00:00 Completed [facility] SARS-COV-2 COVID-19 PFIZER VACCINE 2021-05-03 00:00:00 Completed [facility] SARS-COV-2 COVID-19 PFIZER VACCINE 2021-05-03 00:00:00 Completed [facility] SARS-COV-2 COVID-19 PFIZER VACCINE 2021-05-03 00:00:00 Completed [facility] SARS-COV-2 COVID-19 PFIZER VACCINE 2021-05-03 00:00:00 Completed [facility] SARS-COV-2 COVID-19 PFIZER VACCINE 2021-05-03 00:00:00 Completed [facility] SARS-COV-2 COVID-19 PFIZER VACCINE 2021-05-03 00:00:00 Completed [facility] SARS-COV-2 COVID-19 PFIZER VACCINE 2021-05-03 00:00:00 Completed [facility] SARS-COV-2 COVID-19 PFIZER VACCINE Unknown Completed [facility] SARS-COV-2 COVID-19 PFIZER BA-SUCROSE VACCINE (ROSE TOP) Unknown Completed [facility] SARS-COV-2 COVID-19 PFIZER BA-SUCROSE VACCINE (ROSE TOP) Unknown Completed [facility] SARS-COV-2 COVID-19 PFIZER VACCINE Unknown Completed [facility] SARS-COV-2 COVID-19 PFIZER VACCINE Unknown Completed [facility] SARS-COV-2 COVID-19 PFIZER BA-SUCROSE VACCINE (ROSE TOP) Unknown Completed [facility] SARS-COV-2 COVID-19 PFIZER VACCINE Unknown Completed [facility] SARS-COV-2 COVID-19 PFIZER BA-SUCROSE VACCINE (ROSE TOP) Unknown Completed [facility] SARS-COV-2 COVID-19 PFIZER VACCINE Unknown Completed [facility] SARS-COV-2 COVID-19 PFIZER BA-SUCROSE VACCINE (ROSE TOP) Unknown Completed [facility] SARS-COV-2 COVID-19 PFIZER VACCINE Unknown Completed [facility] SARS-COV-2 COVID-19 PFIZER BA-SUCROSE VACCINE (ROSE TOP) Unknown Completed [facility] SARS-COV-2 COVID-19 PFIZER VACCINE Unknown Completed [facility] SARS-COV-2 COVID-19 PFIZER BA-SUCROSE VACCINE (ROSE TOP) Unknown Completed [facility] SARS-COV-2 COVID-19 PFIZER VACCINE Unknown Completed [facility] SARS-COV-2 COVID-19 PFIZER BA-SUCROSE VACCINE (ROSE TOP) Unknown Completed [facility] SARS-COV-2 COVID-19 PFIZER VACCINE Unknown Completed [facility] SARS-COV-2 COVID-19 PFIZER BA-SUCROSE VACCINE (ROSE TOP) Unknown Completed [facility] SARS-COV-2 COVID-19 PFIZER VACCINE Unknown Completed [facility] SARS-COV-2 COVID-19 PFIZER BA-SUCROSE VACCINE (ROSE TOP) Unknown Completed [facility] SARS-COV-2 COVID-19 PFIZER VACCINE Unknown Completed [facility] SARS-COV-2 COVID-19 PFIZER BA-SUCROSE VACCINE (ROSE TOP) Unknown Completed [facility] SARS-COV-2 COVID-19 PFIZER VACCINE Unknown Completed [facility] SARS-COV-2 COVID-19 PFIZER BA-SUCROSE VACCINE (ROSE TOP) Unknown Completed [facility] SARS-COV-2 COVID-19 PFIZER VACCINE Unknown Completed [facility] SARS-COV-2 COVID-19 PFIZER BA-SUCROSE VACCINE (ROSE TOP) Unknown Completed [facility] SARS-COV-2 COVID-19 PFIZER VACCINE Unknown Completed [facility] SARS-COV-2 COVID-19 PFIZER BA-SUCROSE VACCINE (ROSE TOP) Unknown Completed [facility] Vital Signs Vital Name Observation Time Observation Value Comments S ource Systolic blood pressure 2024-08-10 15:08:00 164 mm[Hg] [facility] Diastolic blood pressure 2024-08-10 15:08:00 87 mm[Hg] [facility] Heart rate 2024-08-10 15:08:00 90 /min Jackyor ial [facility] Body temperature 2024-08-10 15:08:00 36.44 Radha [facility] Respiratory rate 2024-08-10 15:08:00 20 /min [facility] Oxygen saturation in Arterial blood by Pulse oximetry 2024-08-10 15:08:00 97 /min [facility] Body height 2024-08-10 05:20:00 160 cm Jeffrey riaraul [facility] Body weight 2024-08-10 05:20:00 81.647 kg Jeffrey Bolaños [facility] BMI 2024-08-10 05:20:00 31.89 kg/m2 Jeffrey Bolaños [facility] Systolic blood pressure 2024-08-10 15:08:00 164 mm[Hg] [facility] Diastolic blood pressure 2024-08-10 15:08:00 87 mm[Hg] [facility] Heart rate 2024-08-10 15:08:00 90 [facility] Body temperature 2024-08-10 15:08:00 36.44 Radha [facility] Respiratory rate 2024-08-10 15:08:00 20 /min [facility] Oxygen saturation in Arterial blood by Pulse oximetry 2024-08-10 15:08:00 97 /min [facility] Her calhoun [facility] Body height 2024-08-10 05:20:00 160 [facility] 2024-08-10 05:20:00 81.647 kg [facility] 2024-08-10 05:20:00 31.89 kg/m2 Jeffreytavo avila [facility] Systolic blood pressure 2024-04-03 05:10:00 111 mm[Hg] [facility] Diastolic blood pressure 2024-04-03 05:10:00 65 mm[Hg] [facility] Heart rate 2024-04-03 05:10:00 70 /min [facility] Respiratory rate 2024-04-03 05:10:00 23 /min [facility] Oxygen saturation in Arterial blood by Pulse oximetry 2024-04-03 05:10:00 97 /min [facility] Body temperature 2024-04-03 01:49:00 37.33 Radha [facility] Body height 2024-04-03 01:49:00 157.5 cm [facility] Body weight 2024-04-03 01:49:00 90.719 kg [facility] BMI 2024-04-03 01:49:00 36.58 kg/m2 [facility] Systolic blood pressure 2024-01-13 04:50:00 103 mm[Hg] [facility] Diastolic blood pressure 2024-01-13 04:50:00 72 mm[Hg] [facility] Heart rate 2024-01-13 04:50:00 85 /min Un[facility] Body temperature 2024-01-13 04:50:00 36.67 Radha [facility] Oxygen saturation in Arterial blood by Pulse oximetry 2024-01-13 04:50:00 99 /min [facility] Respiratory rate 2024-01-13 04:40:00 19 /min [facility] Body height 2024-01-13 03:06:00 160 cm [facility] Body weight 2024-01-13 03:06:00 81.194 kg [facility] BMI 2024-01-13 03:06:00 31.71 kg/m2 [facility] Systolic blood pressure 2024-01-10 20:00:00 95 mm[Hg] [facility] Diastolic blood pressure 2024-01-10 20:00:00 71 mm[Hg] [facility] Heart rate 2024-01-10 20:00:00 73 /min [facility] Body temperature 2024-01-10 20:00:00 36.83 Radha [facility] Respiratory rate 2024-01-10 20:00:00 23 /min [facility] Oxygen saturation in Arterial blood by Pulse oximetry 2024-01-10 20:00:00 94 /min [facility] Body weight 2024-01-10 09:00:00 81.466 kg [facility] BMI 2024-01-10 09:00:00 32.85 kg/m2 [facility] Body height 2024-01-09 21:10:00 157.5 cm [facility] Heart rate 2023-12-15 12:35:00 73 /min [facility] Respiratory rate 2023-12-15 12:35:00 18 /min [facility] Oxygen saturation in Arterial blood by Pulse oximetry 2023-12-15 12:35:00 95 /min [facility] Systolic blood pressure 2023-12-15 12:20:00 105 mm[Hg] [facility] Diastolic blood pressure 2023-12-15 12:20:00 64 mm[Hg] [facility] Body temperature 2023-12-15 12:20:00 36.11 Radha [facility] Body weight 2023-12-15 08:12:00 78.472 kg [facility] BMI 2023-12-15 08:12:00 30.65 kg/m2 [facility] Body height 2023-12-15 02:10:00 160 cm [facility] Systolic blood pressure 2023-12-03 23:00:00 106 mm[Hg] [facility] Diastolic blood pressure 2023-12-03 23:00:00 75 mm[Hg] [facility] Heart rate 2023-12-03 23:00:00 108 /min [facility] Body temperature 2023-12-03 23:00:00 36.61 Radha [facility] Respiratory rate 2023-12-03 23:00:00 17 /min [facility] Oxygen saturation in Arterial blood by Pulse oximetry 2023-12-03 23:00:00 96 /min [facility] Body height 2023-12-03 19:39:00 160 cm [facility] Body weight 2023-12-03 19:39:00 90.7 kg [facility] BMI 2023-12-03 19:39:00 35.43 kg/m2 [facility] Systolic blood pressure 2023-11-28 16:39:00 91 mm[Hg] [facility] Diastolic blood pressure 2023-11-28 16:39:00 65 mm[Hg] [facility] Heart rate 2023-11-28 16:39:00 105 /min [facility] Body temperature 2023-11-28 16:39:00 36.28 Radha [facility] Respiratory rate 2023-11-28 16:39:00 20 /min [facility] Oxygen saturation in Arterial blood by Pulse oximetry 2023-11-28 16:39:00 97 /min [facility] Body weight 2023-11-28 01:00:00 84 kg [facility] BMI 2023-11-28 01:00:00 32.81 kg/m2 [facility] Body height 2023-11-22 07:10:00 160 cm [facility] Systolic blood pressure 2023-11-23 19:43:25 123 mm[Hg] [facility] Diastolic blood pressure 2023-11-23 19:43:25 79 mm[Hg] [facility] Respiratory rate 2023-11-23 19:43:25 17 /min [facility] Oxygen saturation in Arterial blood by Pulse oximetry 2023-11-23 19:43:25 97 /min [facility] Heart rate 2023-11-23 19:20:46 122 /min [facility] Body temperature 2023-11-23 15:00:00 36.22 Radha [facility] Body height 2023-11-22 07:10:00 160 cm [facility] Body weight 2023-11-22 07:10:00 94.484 kg [facility] BMI 2023-11-22 07:10:00 35.16 kg/m2 [facility] Systolic blood pressure 2023-09-11 17:27:00 122 mm[Hg] [...] Systolic blood pressure 2023-08-12 21:00:00 130 mm[Hg] [facility] Diastolic blood pressure 2023-08-12 21:00:00 85 mm[Hg] [facility] Heart rate 2023-08-12 21:00:00 106 /min [facility] Respiratory rate 2023-08-12 21:00:00 14 /min [facility] Oxygen saturation in Arterial blood by Pulse oximetry 2023-08-12 21:00:00 95 /min [facility] Body temperature 2023-08-12 20:34:54 37.22 Radha [facility] Body height 2023-08-12 19:47:00 157.5 cm [facility] Body weight 2023-08-12 19:47:00 81.647 kg [facility] BMI 2023-08-12 19:47:00 32.92 kg/m2 [facility] WEIGHT 2023-06-16 05:26:00 86.047 kg HEIGHT 2023-06-13 [...] Systolic blood pressure 2022-12-11 20:00:00 142 mm[Hg] [facility] Diastolic blood pressure 2022-12-11 20:00:00 90 mm[Hg] [facility] Respiratory rate 2022-12-11 20:00:00 24 /min [facility] Heart rate 2022-12-11 18:00:00 101 /min [facility] Oxygen saturation in Arterial blood by Pulse oximetry 2022-12-11 18:00:00 93 /min [facility] BMI 2022-12-11 13:55:00 35.43 kg/m2 [facility] Body temperature 2022-12-11 13:55:00 37.22 [facility] Body weight 2022-12-11 13:55:00 90.719 kg [facility] Systolic blood pressure 2022-11-18 05:34:00 152 mm[Hg] [facility] Diastolic blood pressure 2022-11-18 05:34:00 98 mm[Hg] [facility] Heart rate 2022-11-18 05:34:00 88 /min [facility] Respiratory rate 2022-11-18 05:34:00 18 /min [facility] Oxygen saturation in Arterial blood by Pulse oximetry 2022-11-18 05:34:00 97 /min [facility] Body temperature 2022-11-17 22:28:00 37.06 [facility] Body height 2022-11-17 22:28:00 160 cm [facility] Body weight 2022-11-17 22:28:00 99.791 kg [facility] BMI 2022-11-17 22:28:00 38.97 kg/m2 [facility] Heart rate 2022-08-02 02:02:00 108 /min [facility] Respiratory rate 2022-08-02 02:02:00 28 /min [facility] Oxygen saturation in Arterial blood by Pulse oximetry 2022-08-02 02:02:00 97 /min [facility] Body temperature 2022-08-02 01:00:00 36.44 Radha [facility] Systolic blood pressure 2022-08-01 23:29:00 145 mm[Hg] [facility] Diastolic blood pressure 2022-08-01 23:29:00 103 mm[Hg] [facility] Body weight 2022-08-01 09:16:00 97.977 kg [facility] BMI 2022-08-01 09:16:00 38.26 kg/m2 [facility] Body height 2022-07-31 21:54:00 160 cm [facility] Systolic blood pressure 2022-05-08 16:40:00 146 mm[Hg] [facility] Diastolic blood pressure 2022-05-08 16:40:00 96 mm[Hg] [facility] Heart rate 2022-05-08 16:40:00 112 /min [facility] Body temperature 2022-05-08 16:40:00 36.78 Radha [facility] Respiratory rate 2022-05-08 16:40:00 18 /min [facility] Oxygen saturation in Arterial blood by Pulse oximetry 2022-05-08 16:40:00 94 /min [facility] Body height 2022-05-05 23:44:00 160 cm [facility] Body weight 2022-05-05 23:37:00 81.647 kg [facility] BMI 2022-05-05 23:37:00 31.89 kg/m2 [facility] Systolic blood pressure 2022-04-15 18:52:00 104 mm[Hg] [facility] Diastolic blood pressure 2022-04-15 18:52:00 82 mm[Hg] [facility] Heart rate 2022-04-15 18:52:00 114 /min [facility] Oxygen saturation in Arterial blood by Pulse oximetry 2022-04-15 18:52:00 98 /min [facility] Body temperature 2022-04-15 16:14:00 36.28 Radha [facility] Respiratory rate 2022-04-15 16:14:00 17 /min [facility] Body height 2022-04-13 21:08:00 160 cm [facility] Body weight 2022-04-13 21:08:00 91.173 kg [facility] BMI 2022-04-13 21:08:00 35.61 kg/m2 [facility] Systolic blood pressure 2021-11-23 21:30:00 132 mm[Hg] [facility] Diastolic blood pressure 2021-11-23 21:30:00 76 mm[Hg] [facility] Heart rate 2021-11-23 21:30:00 95 /min [facility] Respiratory rate 2021-11-23 21:30:00 13 /min [facility] Oxygen saturation in Arterial blood by Pulse oximetry 2021-11-23 21:30:00 97 /min [facility] Body temperature 2021-11-23 20:15:00 37.56 Radha [facility] Systolic blood pressure 2021-03-17 03:00:00 117 mm[Hg] [facility] Diastolic blood pressure 2021-03-17 03:00:00 76 mm[Hg] [facility] Heart rate 2021-03-17 03:00:00 104 /min [facility] Respiratory rate 2021-03-17 03:00:00 28 /min [facility] Oxygen saturation in Arterial blood by Pulse oximetry 2021-03-17 03:00:00 96 /min [facility] Body temperature 2021-03-17 00:39:00 37.11 Radha [facility] Body height 2021-03-17 00:39:00 160 cm [facility] Body weight 2021-03-17 00:39:00 58.968 kg [facility] BMI 2021-03-17 00:39:00 23.03 kg/m2 [facility] Systolic blood pressure 2021-03-15 00:14:00 149 mm[Hg] [facility] Diastolic blood pressure 2021-03-15 00:14:00 78 mm[Hg] [facility] Heart rate 2021-03-15 00:14:00 100 /min [facility] Body temperature 2021-03-15 00:14:00 37.33 Radha [facility] Respiratory rate 2021-03-15 00:14:00 24 /min [facility] Body height 2021-03-15 00:14:00 160 cm [facility] Body weight 2021-03-15 00:14:00 58.968 kg [facility] BMI 2021-03-15 00:14:00 23.03 kg/m2 [facility] Oxygen saturation in Arterial blood by Pulse oximetry 2021-03-15 00:14:00 98 /min [facility] Systolic blood pressure 2021-02-19 18:00:00 131 mm[Hg] [facility] Diastolic blood pressure 2021-02-19 18:00:00 80 mm[Hg] [facility] Heart rate 2021-02-19 18:00:00 83 /min [facility] Respiratory rate 2021-02-19 18:00:00 18 /min [facility] Oxygen saturation in Arterial blood by Pulse oximetry 2021-02-19 18:00:00 100 /min [facility] Body temperature 2021-02-19 15:47:00 37 Radha [facility] Body height 2021-02-19 15:47:00 160 cm [facility] Body weight 2021-02-19 15:47:00 58.968 kg [facility] BMI 2021-02-19 15:47:00 23.03 kg/m2 [facility] Heart rate 2023-09-08 08:54:00 118 /min [facility] Respiratory rate 2023-09-08 08:54:00 21 /min [facility] Oxygen saturation in Arterial blood by Pulse oximetry 2023-09-08 08:54:00 100 /min [facility] Systolic blood pressure 2023-09-08 08:32:00 110 mm[Hg] [facility] Diastolic blood pressure 2023-09-08 08:32:00 77 mm[Hg] [facility] Body temperature 2023-09-08 08:32:00 36.06 Radha [facility] Body height 2023-09-04 00:58:00 157.5 cm [facility] Body weight 2023-09-04 00:58:00 80 kg [facility] BMI 2023-09-04 00:58:00 32.26 kg/m2 [facility] Heart rate 2023-06-16 17:00:00 108 /min [facility] Systolic blood pressure 2023-06-16 15:31:00 101 mm[Hg] [facility] Diastolic blood pressure 2023-06-16 15:31:00 81 mm[Hg] [facility] Body temperature 2023-06-16 15:31:00 36.61 Radha [facility] Respiratory rate 2023-06-16 15:31:00 18 /min [facility] Oxygen saturation in Arterial blood by Pulse oximetry 2023-06-16 15:31:00 94 /min [facility] Body weight 2023-06-16 05:26:00 86.047 kg [facility] BMI 2023-06-16 05:26:00 33.60 kg/m2 [facility] Body height 2023-06-13 04:00:00 160 cm [facility] Systolic blood pressure 2023-06-04 13:02:00 93 mm[Hg] [facility] Diastolic blood pressure 2023-06-04 13:02:00 57 mm[Hg] [facility] Heart rate 2023-06-04 13:02:00 101 /min [facility] Respiratory rate 2023-06-04 13:02:00 22 /min [facility] Oxygen saturation in Arterial blood by Pulse oximetry 2023-06-04 13:02:00 95 /min room air [facility] Body temperature 2023-06-04 11:46:00 35.28 Radha [facility] Systolic blood pressure 2023-05-28 16:00:00 154 mm[Hg] [facility] Diastolic blood pressure 2023-05-28 16:00:00 82 mm[Hg] [facility] Heart rate 2023-05-28 16:00:00 89 /min [facility] Body temperature 2023-05-28 16:00:00 36.67 Radha [facility] Respiratory rate 2023-05-28 16:00:00 16 /min [facility] Oxygen saturation in Arterial blood by Pulse oximetry 2023-05-28 16:00:00 97 /min [facility] Body height 2023-05-28 07:00:00 157.5 cm [facility] Body weight 2023-05-28 07:00:00 87.544 kg [facility] BMI 2023-05-28 07:00:00 35.30 kg/m2 [facility] Body height 2023-05-26 09:12:00 157.5 cm [facility] Body weight 2023-05-26 09:12:00 87.091 kg [facility] BMI 2023-05-26 09:12:00 35.12 kg/m2 [facility] Respiratory rate 2023-04-02 16:35:00 18 /min [facility] Oxygen saturation in Arterial blood by Pulse oximetry 2023-04-02 16:35:00 98 /min [facility] Systolic blood pressure 2023-04-02 12:00:00 147 mm[Hg] [facility] Diastolic blood pressure 2023-04-02 12:00:00 97 mm[Hg] [facility] Heart rate 2023-04-02 12:00:00 106 /min [facility] Body temperature 2023-04-02 12:00:00 36.28 Radha [facility] Body height 2023-03-30 02:14:00 157.5 cm [facility] Body weight 2023-03-30 02:14:00 92.08 kg [facility] BMI 2023-03-30 02:14:00 37.13 kg/m2 [facility] Respiratory rate 2022-08-03 14:40:00 18 /min [facility] Systolic blood pressure 2022-08-03 12:13:00 112 mm[Hg] [facility] Diastolic blood pressure 2022-08-03 12:13:00 77 mm[Hg] [facility] Heart rate 2022-08-03 12:13:00 115 /min [facility] Oxygen saturation in Arterial blood by Pulse oximetry 2022-08-03 12:13:00 93 /min [facility] Body temperature 2022-08-03 12:00:00 36.83 Radha [facility] Body height 2022-08-02 21:52:00 160.2 cm [facility] Body weight 2022-08-02 21:52:00 95 kg [facility] BMI 2022-08-02 21:52:00 37.02 kg/m2 [facility] BP Systolic 2022-07-24 13:31:00 136 [...] CT brain wo IV contrast 2024-08-24 00:00:00 [facility] XR FEMUR 2+ VW RIGHT 2024-08-10 10:28:08 Dipak Colindres [facility] XR HIP 2-3 VIEWS RIGHT 2024-08-10 10:27:46 Dipak Colindres [facility] UA WITH CULTURE IF INDICATED 2024-08-10 09:51:00 Dipak Colindres [facility] VALPROIC ACID LEVEL 2024-08-10 08:31:00 Prakash Eckert [facility] XR CHEST 1 VIEW 2024-08-10 07:18:37 Dipak Colindres [facility] XR PELVIS 1-2 VIEWS 2024-08-10 07:18:15 Dipak Colindres [facility] CT BRAIN WO IV CONTRAST 2024-08-10 06:06:00 Dipak Colindres [facility] CT CERVICAL SPINE WO IV CONTRAST 2024-08-10 06:06:00 Jens Dipak Dixon [facility] BASIC METABOLIC PANEL 2024-08-10 05:51:00 Jens Dipak Dixon [facility] HEPATIC FUNCTION PANEL 2024-08-10 05:51:00 Jens Dipak Dixon [facility] MAGNESIUM LEVEL 2024-08-10 05:51:00 Jens Dipak Dixon [facility] PHOSPHORUS LEVEL 2024-08-10 05:51:00 Jens Dipak Dixon [facility] TYPE AND SCREEN 2024-08-10 05:51:00 Jens Dipak Dixon [facility] COMPLETE BLOOD COUNT W/DIFF AND PLATELET 2024-08-10 05:51:00 Jens Dipak Dixon [facility] THROMBOELASTOGRAPH RAPID 2024-08-10 05:51:00 Jens Dipak Dixon [facility] COMPLETE BLOOD COUNT 2024-08-10 05:51:00 Jens Dipak Dixon [facility] AUTOMATED DIFFERENTIAL 2024-08-10 05:51:00 Jens Dipak Dixon [facility] POC GLUCOSE UNSOLICITED RESULTS 2024-08-10 05:33:00 Brooklynn Paige [facility] ECG 12 lead (arrhythmia) 2024-08-10 00:00:00 [facility] Urine Culture 2024-08-10 00:00:00 [facility] LACTIC ACID WHOLE BLOOD 2024-04-03 01:59:00 Chrissy Mohr [facility] BASIC METABOLIC PANEL (NA, K , CL, CO2, GLUCOSE, BUN, CREATININE, CA) 2024-04-03 01:58:00 Chrissy Mohr [facility] CBC WITH DIFF 2024-04-03 01:58:00 Tammy Chrissy [facility] N-TERMINAL PRO-BNP 2024-04-03 01:58:00 Tammy Chrissy [facility] EKG-12 LEAD 2024-01-13 04:42:14 Radha Wyatt [facility] TROPONIN I 2024-01-13 03:20:00 Radha Wyatt [facility] COMP. METABOLIC PANEL ([id number]) 2024-01-13 03:20:00 Radha Wyatt [facility] CBC WITH DIFF 2024-01-13 03:20:00 Radha Wyatt [facility] TRANSTHORACIC ECHO (TTE) LIMITED W/ DOPPLER, COLOR AND CONTRAST 2024-01-10 13:07:00 Darrick Fry [facility] MAGNESIUM 2024-01-10 09:16:00 Darrick Fry [facility] TROPONIN I 2024-01-10 09:16:00 Darrick Fry [facility] BASIC METABOLIC PANEL (NA, K , CL, CO2, GLUCOSE, BUN, CREATININE, CA) 2024-01-10 09:16:00 Darrick Fry [facility] LIPID PANEL ([id number])(TOTAL CHOLESTEROL, TRIGLYCERIDES, HDL) 2024-01-10 09:16:00 Darrick Fry [facility] CBC WITH DIFF 2024-01-10 09:16:00 Darrick Fry [facility] PROTHROMBIN TIME / INR 2024-01-10 09:16:00 Darrick Fry [facility] ACTIVATED PARTIAL THRMPLAS DAVID 2024-01-10 09:16:00 Darrick Fry [facility] N-TERMINAL PRO-BNP 2024-01-10 09:16:00 Darrick Fry [facility] PHOSPHORUS 2024-01-10 04:58:00 Darrick Fry [facility] BLOOD CULTURE SCREEN 2024-01-10 02:39:00 Alfonso Alvarado [facility] BLOOD CULTURE SCREEN 2024-01-10 02:20:00 Alfonso Alvarado [facility] LACTIC ACID WHOLE BLOOD 2024-01-10 01:52:00 Alfonso Alvarado [facility] CT CHEST PULMONARY ANGIOGRAM 2024-01-09 23:59:01 Olena Doyle [facility] XR CHEST 1 VW 2024-01-09 21:49:00 Olena Doyle [facility] TROPONIN I 2024-01-09 21:39:00 Olena Doyle [facility] COMP. METABOLIC PANEL ([id number]) 2024-01-09 21:39:00 Abundio [facility] CBC WITH DIFF 2024-01-09 21:39:00 Susannaitz [facility] D-DIMER 2024-01-09 [facility]:39[facility] N-TERMINAL PRO-BNP 2024-01-09 21:39:00 Abundio [facility] HB ECG ROUTINE & RHYTHM STRIP 2024-01-09 21:13:02 Susannaitz [facility] POCT GLUCOSE (AUTOMATED) 2023-12-15 12:43:00 Reema [facility] MAGNESIUM 2023-12-15 10:26:00 Reema [facility] TROPONIN I 2023-12-15 10:26:00 Reema [facility] BASIC METABOLIC PANEL (NA, K , CL, CO2, GLUCOSE, BUN, CREATININE, CA) 2023-12-15 10:26:00 Reema [facility] CBC WITH DIFF 2023-12-15 10:26:00 Daria [facility] N-TERMINAL PRO-BNP 2023-12-15 10:26:00 Reema [facility] TROPONIN I 2023-12-15 03:21:00 Reema [facility] FREE T4 2023-12-15 03:21:00 Reema [facility] DIGOXIN 2023-12-15 03:21:00 Daria [facility] POCT GLUCOSE (AUTOMATED) 2023-12-15 00:56:00 Reema [facility] TROPONIN I 2023-12-14 21:05:00 Mj Bryan [facility] THYROID STIMULATING HORMONE 2023-12-14 21:05:00 Reema [facility] FREE T3 2023-12-14 21:05:00 Reema [facility] XR CHEST 1 VW 2023-12-14 19:25:00 Singer [facility] TROPONIN I 2023-12-14 19:19:00 Singer [facility] COMP. METABOLIC PANEL ([id number]) 2023-12-14 19:19:00 Singer [facility] CBC WITH DIFF 2023-12-14 19:19:00 Singer [facility] D-DIMER 2023-12-14 19:19:00 Singer [facility] N-TERMINAL PRO-BNP 2023-12-14 19:19:00 Singer [facility] EKG-12 LEAD 2023-12-14 18:38:57 Tal Benavidez [facility] POCT GLUCOSE (AUTOMATED) 2023-12-03 21:23:00 Connor Renee [facility] BASIC METABOLIC PANEL (NA, K , CL, CO2, GLUCOSE, BUN, CREATININE, CA) 2023-12-03 17:58:00 Mukesh Tabor [facility] POCT GLUCOSE (AUTOMATED) 2023-12-03 16:51:00 Connor Renee [facility] POCT GLUCOSE (AUTOMATED) 2023-12-03 13:00:00 Connor Renee [facility] MAGNESIUM 2023-12-03 09:21:00 Ginny [facility] HEPATIC FUNCTION PANEL ([id number]) (ALB,T.PRO,BILI T,BU/BC,ALT,AST,ALK PHOS) 2023-12-03 09:21:00 [facility] (NA, K , CL, CO2, GLUCOSE, BUN, CREATININE, CA) 2023-12-03 09:21:00 Ginny [facility] AC PANEL 21 + LACTIC ACID 2023-12-03 01:45:00 Ginny [facility] MRSA / MSSA SCREEN BY PCRRED 2023-12-03 01:45:00 Ginny [facility] CT CHEST PULMONARY ANGIOGRAM 2023-12-02 19:32:14 Connor Renee [facility] XR CHEST 1 VW 2023-12-02 19:04:00 Connor Renee [facility] BLOOD CULTURE SCREEN 2023-12-02 18:53:00 Connor Renee [facility] TROPONIN I 2023-12-02 18:53:00 Connor Renee [facility] COMP. METABOLIC PANEL ([id number]) 2023-12-02 18:53:00 Connor Renee [facility] CBC WITH DIFF 2023-12-02 18:53:00 Connor Renee [facility] RAPID INFLUENZA A/B 2023-12-02 18:53:00 Cnonor Renee [facility] N-TERMINAL PRO-BNP 2023-12-02 18:53:00 Connor Renee [facility] COVID-19 (ID NOW RAPID TESTING) 2023-12-02 18:53:00 Connor Renee [facility] BLOOD CULTURE SCREEN 2023-12-02 18:49:00 Connor Renee [facility] AC ABG + LACTIC ACID 2023-12-02 18:26:00 Connor Renee [facility] HB ECG ROUTINE & RHYTHM STRIP 2023-12-02 18:06:10 Connor Renee [facility] POCT GLUCOSE (AUTOMATED) 2023-11-28 16:40:00 Cr Fry [facility] PHOSPHORUS 2023-11-28 09:22:00 Leander [facility] MAGNESIUM 2023-11-28 09:22:00 Tabor [facility] COMP. METABOLIC PANEL ([id number]) 2023-11-28 09:22:00 [facility] CBC WITH DIFF 2023-11-28 09:22:00 [facility] N-TERMINAL PRO-BNP 2023-11-28 09:22:00 Torrey Baez [facility] POCT GLUCOSE (AUTOMATED) 2023-11-28 01:31:00 Al Hemyari, [facility] POCT GLUCOSE (AUTOMATED) 2023-11-27 21:45:00 Lorenzo Trevinorosalie [facility] POCT GLUCOSE (AUTOMATED) 2023-11-27 16:30:00 Lorenzo Trevinorosalie [facility] POCT GLUCOSE (AUTOMATED) 2023-11-27 12:39:00 Lorenzo Ventura [facility] LACTIC ACID WHOLE BLOOD 2023-11-27 06:35:00 [facility] MAGNESIUM 2023-11-27 06:34:00 [facility] COMP. METABOLIC PANEL ([id number]) 2023-11-27 06:34:00 [facility] URINE DRUG (IMMUNOASSAY) - COMPREHENSIVE DRUG SCREEN 2023-11-27 03:59:00 [facility] POCT GLUCOSE (AUTOMATED) 2023-11-27 02:25:00 Lorenzo Ventura [facility] CT HEAD WO CONTRAST 2023-11-26 21:56:31 [facility] MAGNESIUM 2023-11-26 21:32:00 [facility] COMP. METABOLIC PANEL ([id number]) 2023-11-26 21:32:00 [facility] POCT GLUCOSE (AUTOMATED) 2023-11-26 21:11:00 Lorenzo Ventura [facility] VALPROIC ACID, FREE 2023-11-26 18:07:00 [facility] KEPPRA (LEVETIRACETAM) 2023-11-26 18:07:00 [facility] LACTIC ACID WHOLE BLOOD 2023-11-26 18:07:00 [facility] POCT GLUCOSE (AUTOMATED) 2023-11-26 17:05:00 Lorenzo Ventura [facility] MAGNESIUM 2023-11-26 13:28:00 Raghu Castellanos [facility] VITAMIN B12, LEVEL 2023-11-26 13:28:00 [facility] FOLATE 2023-11-26 13:28:00 [facility] COMP. METABOLIC PANEL ([id number]) 2023-11-26 13:28:00 Raghu Castellanos [facility] CBC WITH DIFF 2023-11-26 13:28:00 [facility] LACTIC ACID WHOLE BLOOD 2023-11-26 09:52:00 Robinson Shin [facility] POCT GLUCOSE (AUTOMATED) 2023-11-26 02:13:00 Lorenzo Hemrosalie [facility] LACTIC ACID WHOLE BLOOD 2023-11-26 00:53:00 Raghu Castellanos [facility] ELECTROENCEPHALOGRAM 2023-11-26 00:00:00 [facility] POCT GLUCOSE (AUTOMATED) 2023-11-25 20:59:00 Lorenzo Ventura [facility] LACTIC ACID WHOLE BLOOD 2023-11-25 20:56:00 Raghu Castellanos [facility] MAGNESIUM 2023-11-25 20:55:00 Raghu Castellanos [facility] COMP. METABOLIC PANEL ([id number]) 2023-11-25 20:55:00 Raghu Castellanos [facility] POCT GLUCOSE (AUTOMATED) 2023-11-25 16:58:00 Lorenzo Ventura [facility] POCT GLUCOSE (AUTOMATED) 2023-11-25 13:04:00 Lorenzo Ventura [facility] LACTIC ACID WHOLE BLOOD 2023-11-25 09:25:[address] [facility] MAGNESIUM 2023-11-25 09:24:00 Raghu Castellanos [facility] COMP. METABOLIC PANEL ([id number]) 2023-11-25 09:24:[address] [facility] CBC WITH DIFF 2023-11-25 09:24:00 [facility] MAGNESIUM 2023-11-25 04:52:00 [facility] COMP. METABOLIC PANEL ([id number]) 2023-11-25 04:52:00 [facility] LACTIC ACID WHOLE BLOOD 2023-11-25 04:52:00 [facility] POCT GLUCOSE (AUTOMATED) 2023-11-25 03:00:00 Lorenzo Ventura [facility] TROPONIN I 2023-11-25 02:59[facility] ([id number]) 2023-11-25 02:59:00 Nestor Lopez [facility] HIV 1/2 AG-AB WITH REFLEX 2023-11-25 02:59:[address] [facility] PELVIS W CONTRAST 2023-11-24 22:24:00 [facility] POCT GLUCOSE (AUTOMATED) 2023-11-24 21:21:00 Lorenzo Ventura [facility] MAGNESIUM 2023-11-24 21:08:00 [facility] COMP. METABOLIC PANEL ([id number]) 2023-11-24 21:08:00 [facility] LACTIC ACID WHOLE BLOOD 2023-11-24 21:08:[address] [facility] POCT GLUCOSE (AUTOMATED) 2023-11-24 17:43:00 Lorenzo Ventura [facility] POCT GLUCOSE (AUTOMATED) 2023-11-24 17:43:00 Lorenzo Ventura [facility] MAGNESIUM 2023-11-24 15:47:00 [facility] COMP. METABOLIC PANEL ([id number]) 2023-11-24 15:47:00 [facility] ACTIVATED PARTIAL THRMPLAS DAVID 2023-11-24 15:47:00 Uli [facility] LACTIC ACID WHOLE BLOOD 2023-11-24 15:47:00 [facility] MAGNESIUM 2023-11-24 15:47:00 [facility] COMP. METABOLIC PANEL ([id number]) 2023-11-24 15:47:00 [facility] ACTIVATED PARTIAL THRMPLAS DAVID 2023-11-24 15:47:00 Uli [facility] LACTIC ACID WHOLE BLOOD 2023-11-24 15:47:00 [facility] POCT GLUCOSE (AUTOMATED) 2023-11-24 12:33:00 Lorenzo Ventura [facility] POCT GLUCOSE (AUTOMATED) 2023-11-24 12:33:00 Lorenzo Ventura [facility] MAGNESIUM 2023-11-24 10:03:00 [facility] COMP. METABOLIC PANEL ([id number]) 2023-11-24 10:03:00 [facility] CBC WITH DIFF 2023-11-24 10:03:00 [facility] LACTIC ACID WITH 3 HOUR REFLEX 2023-11-24 10:03:00 [facility] MAGNESIUM 2023-11-24 10:03:00 [facility] COMP. METABOLIC PANEL ([id number]) 2023-11-24 10:03:00 [facility] CBC WITH DIFF 2023-11-24 10:03:00 [facility] LACTIC ACID WITH 3 HOUR REFLEX 2023-11-24 10:03:00 [facility] ACTIVATED PARTIAL THRMPLAS DAVID 2023-11-24 06:13:00 Uli [facility] ACTIVATED PARTIAL THRMPLAS DAVID 2023-11-24 06:13:00 Uli [facility] POCT GLUCOSE (AUTOMATED) 2023-11-24 03:15:00 Lorenzo Ventura [facility] POCT GLUCOSE (AUTOMATED) 2023-11-24 03:15:00 Lorenzo Ventura [facility] ACTIVATED PARTIAL THRMPLAS DAVID 2023-11-23 23:09:00 [facility] PARTIAL THRMPLAS DAVID 2023-11-23 23:09:00 Uli [facility] POCT GLUCOSE (AUTOMATED) 2023-11-23 21:28:00 Lorenzo Ventura [facility] POCT GLUCOSE (AUTOMATED) 2023-11-23 21:28:00 Lorenzo Ventura [facility] CATH PROCEDURE LOG 2023-11-23 20:38:[address] [facility] CATH PROCEDURE LOG 2023-11-23 20:38:[address] [facility] CARDIAC CATHETERIZATION 2023-11-23 20:11:[address] [facility] CARDIAC CATHETERIZATION 2023-11-23 20:11:[address] [facility] CARDIAC CATHETERIZATION 2023-11-23 20:11:[address] [facility] CARDIAC CATHETERIZATION 2023-11-23 20:11:[address] [facility] POCT GLUCOSE (AUTOMATED) 2023-11-23 17:18:00 Lorenzo Ventura [facility] POCT GLUCOSE (AUTOMATED) 2023-11-23 17:18:00 Lorenzo Ventura [facility] POCT GLUCOSE (AUTOMATED) 2023-11-23 16:50:00 Lorenzo Ventura [facility] POCT GLUCOSE (AUTOMATED) 2023-11-23 16:50:00 Lorenzo Ventura [facility] ACTIVATED PARTIAL THRMPLAS DAVID 2023-11-23 15:13:00 Uli [facility] ACTIVATED PARTIAL THRMPLAS DAVID 2023-11-23 15:13:00 Uli [facility] LACTIC ACID WHOLE BLOOD 2023-11-23 15:12[facility]00 [facility]23-11-23 15:12:00 Robinson Shin [facility] POCT GLUCOSE (AUTOMATED) 2023-11-23 12:47:00 Lorenzo Ventura [facility] POCT GLUCOSE (AUTOMATED) 2023-11-23 12:47:00 Lorenzo Ventura [facility] MAGNESIUM 2023-11-23 07:52:00 Janeth Gil [facility] HEPATIC FUNCTION PANEL ([id number]) (ALB,T.PRO,BILI T,BU/BC,ALT,AST,ALK PHOS) 2023-11-23 07:52:00 [facility] BASIC METABOLIC PANEL (NA, K , CL, CO2, GLUCOSE, BUN, CREATININE, CA) 2023-11-23 07:52:00 Louise [facility] CBC WITH DIFF 2023-11-23 07:52:00 iont [facility] ACTIVATED PARTIAL THRMPLAS DAVID 2023-11-23 07:52:00 [facility] 2023-11-23 07:52:00 [facility] 2023-11-23 07:52:00 Tyet [facility] HEPATIC FUNCTION PANEL ([id number]) (ALB,T.PRO,BILI T,BU/BC,ALT,AST,ALK PHOS) 2023-11-23 07:52:00 Leander [facility] BASIC METABOLIC PANEL (NA, K , CL, CO2, GLUCOSE, BUN, CREATININE, CA) 2023-11-23 07:52:00 Louise [facility] CBC WITH DIFF 2023-11-23 07:52:00 Louise [facility] ACTIVATED PARTIAL THRMPLAS DAVID 2023-11-23 07:52:00 [facility] L[facility] AC[facility] WHOLE BLOOD 2023-11-23 07:52:00 [facility] 2023-11-23 05:00:00 Aleida [facility] LACTIC ACID WHOLE BLOOD 2023-11-23 05:00:00 Aleida [facility] LACTIC ACID WHOLE BLOOD 2023-11-23 03:12:00 Aleida [facility] LACTIC ACID WHOLE BLOOD 2023-11-23 03:12:00 Aleida [facility] LACTIC ACID WHOLE BLOOD 2023-11-23 00:57:00 Aleida [facility] LACTIC ACID WHOLE BLOOD 2023-11-23 00:57:00 Aleida [facility] POCT GLUCOSE (AUTOMATED) 2023-11-23 00:56:00 Al Hemyari, [facility] POCT GLUCOSE (AUTOMATED) 2023-11-23 00:56:00 Lorenzo Ventura [facility] LACTIC ACID WHOLE BLOOD 2023-11-22 23:49:00 Aleida [facility] LACTIC ACID WHOLE BLOOD 2023-11-22 23:49:00 [facility] 2023-11-22 21:49:00 Lorenzo Ventura [facility] POCT GLUCOSE (AUTOMATED) 2023-11-22 21:49:00 Lorenzo Sissydianna [facility] LACTIC ACID WHOLE BLOOD 2023-11-22 21:41:00 [facility] LACTIC ACID WHOLE BLOOD 2023-11-22 21:41:00 [facility] POCT GLUCOSE (AUTOMATED) 2023-11-22 21:01:00 Lorenzo Audrey [facility] POCT GLUCOSE (AUTOMATED) 2023-11-22 21:01:00 Lorenzo Sissydianna [facility] ACTIVATED PARTIAL THRMPLAS DAVID 2023-11-22 19:46:00 Uli [facility] LACTIC ACID WHOLE BLOOD 2023-11-22 19:46:00 [facility] ACTIVATED PARTIAL THRMPLAS DAVID 2023-11-22 19:46:00 Uli [facility] LACTIC ACID WHOLE BLOOD 2023-11-22 19:46:00 [facility] LACTIC ACID WHOLE BLOOD 2023-11-22 17:22:00 Faby [facility] LACTIC ACID WHOLE BLOOD 2023-11-22 17:22:00 Faby [facility] POCT GLUCOSE (AUTOMATED) 2023-11-22 17:00:00 Madeline [facility] POCT GLUCOSE (AUTOMATED) 2023-11-22 17:00:00 Madeline Pierre [facility] LOWER EXTREMITY ARTERIAL DUPLEX BILATERAL - BY VASCULAR LAB 2023-11-22 16:43:47 Eric Hobbs [facility] LOWER EXTREMITY ARTERIAL DUPLEX BILATERAL - BY VASCULAR LAB 2023-11-22 16:43:47 Faby [facility] TRANSTHORACIC ECHO (TTE) COMPLETE W/ CONTRAST 2023-11-22 15:50:00 [facility] TRANSTHORACIC ECHO (TTE) COMPLETE W/ CONTRAST 2023-11-22 15:50:00 [facility] ABDOM[facility] 2023-11-22 14:54:18 [facility] 2023-11-22 14:54:18 Faby [facility] HB ECG ROUTINE & RHYTHM STRIP 2023-11-22 14:28:42 Louise [facility] HB ECG ROUTINE & RHYTHM STRIP 2023-11-22 14:28:42 Louise [facility] COMP. METABOLIC PANEL (11227) 2023-11-22 14:26:00 [facility] IRON PANEL 2023-11-22 14:26:00 [facility] LACTIC ACID WHOLE BLOOD 2023-11-22 14:26:00 Faby [facility] COMP. METABOLIC PANEL ([id number]) 2023-11-22 14:26:00 [facility] IRON PANEL 2023-11-22 14:26:00 [facility] LACTIC ACID WHOLE BLOOD 2023-11-22 14:26:00 Faby [facility] POCT GLUCOSE (AUTOMATED) 2023-11-22 13:26:00 Ignacio [facility] POCT GLUCOSE (AUTOMATED) 2023-11-22 13:26:00 Madeline Pierre [facility] CT CHEST PULMONARY ANGIOGRAM 2023-11-22 13:10:36 [facility]li [facility] CT CHEST PULMONARY ANGIOGRAM 2023-11-22 13:10:36 U[facility] PHOSPHORUS 2023-11-22 11:45:00 [facility] CREATINE KINASE 2023-11-22 11:45:00 Louise [facility] FERRITIN SERUM 2023-11-22 11:45:00 [facility] TROPONIN I 2023-11-22 11:45:00 [facility] LIPID PANEL ([id number])(TOTAL CHOLESTEROL, TRIGLYCERIDES, HDL) 2023-11-22 11:45:00 [facility] CBC WITH DIFF 2023-11-22 11:45:00 [facility] GLYCOSYLATED HEMOGLOBIN (A1C) 2023-11-22 11:45:00 [facility] PHOSPHORUS 2023-11-22 11:45:00 [facility] CREATINE KINASE 2023-11-22 11:45:00 Louise [facility] FERRITIN SERUM 2023-11-22 11:45:00 [facility] TROPONIN I 2023-11-22 11:45:00 [facility] LIPID PANEL ([id number])(TOTAL CHOLESTEROL, TRIGLYCERIDES, HDL) 2023-11-22 11:45:00 [facility] CBC WITH DIFF 2023-11-22 11:45:00 [facility] GLYCOSYLATED HEMOGLOBIN (A1C) 2023-11-22 11:45:00 [facility] BLOOD CULTURE SCREEN 2023-11-22 09:37:00 [facility] BLOOD CULTURE SCREEN 2023-11-22 09:37:00 [facility] BLOOD CULTURE SCREEN 2023-11-22 09:36:00 Uli, [facility] BLOOD CULTURE SCREEN 2023-11-22 09:36:00 Uli [facility] LOWER EXTREMITY VEIN WITH COMPRESSION BILATERAL (ONLY FOR RULE OUT DVT) 2023-11-22 08:09:01 [facility] US LOWER EXTREMITY VEIN WITH COMPRESSION BILATERAL (ONLY FOR RULE OUT DVT) 2023-11-22 08:09:01 Uli [facility] LACTIC ACID WHOLE BLOOD 2023-11-22 08:03:00 Uli, [facility] LACTIC ACID WHOLE BLOOD 2023-11-22 08:03:00 Uli, [facility] MAGNESIUM 2023-11-22 08:02:00 Uli, [facility] TROPONIN I 2023-11-22 08:02:00 Uli, [facility] PROTHROMBIN TIME / INR 2023-11-22 08:02:00 Uli, [facility] D-DIMER 2023-11-22 08:02:00 Uli, [facility] ACTIVATED PARTIAL THRMPLAS DAVID 2023-11-22 08:02:00 Uli, [facility] PROCALCITONIN 2023-11-22 08:02:00 Uli, [facility] MAGNESIUM 2023-11-22 08:02:00 Uli, [facility] TROPONIN I 2023-11-22 08:02:00 Uli, [facility] PROTHROMBIN TIME / INR 2023-11-22 08:02:00 Uli, [facility] D-DIMER 2023-11-22 08:02:00 Uli, [facility] ACTIVATED PARTIAL THRMPLAS DAVID 2023-11-22 08:02:00 Uli, [facility] PROCALCITONIN 2023-11-22 08:02:00 Uli, [facility] XR SHOULDER 2+ VW RIGHT 2023-11-22 07:33:00 Uli, [facility] XR SHOULDER 2+ VW RIGHT 2023-11-22 07:33:00 Uli, [facility] URINALYSIS 2023-11-22 04:33:00 Megan Rondon [facility] URINE DRUG (IMMUNOASSAY) - COMPREHENSIVE DRUG SCREEN W/O REFLEX 2023-11-22 04:33:00 Megan Rondon [facility] URINALYSIS 2023-11-22 04:33:00 Megan Rondon [facility] URINE DRUG (IMMUNOASSAY) - COMPREHENSIVE DRUG SCREEN W/O REFLEX 2023-11-22 04:33:00 Megan Rondon [facility] PROTHROMBIN TIME / INR 2023-11-22 04:25:00 Megan Rondon [facility] ACTIVATED PARTIAL THRMPLAS DAVID 2023-11-22 04:25:00 [facility] / [facility]R 2023-11-22 04:25:00 Megan Rondon [facility] ACTIVATED PARTIAL THRMPLAS DAVID 2023-11-22 04:25:00 Megan Rondon [facility] CRITICAL CARE 2023-11-22 04:18:14 Megan Rondon [facility] CRITICAL CARE 2023-11-22 04:18:14 [facility] 2023-11-22 02:57:00 Alcon [facility] THYROID STIMULATING HORMONE 2023-11-22 02:57:00 Alcon [facility] RAPID INFLUENZA A/B 2023-11-22 02:57:00 Alcon [facility] COVID-19 (ID NOW RAPID TESTING) 2023-11-22 02:57:00 Alcon [facility] LAB ONLY COVID INTERPRETATION 2023-11-22 02:57:00 Alcon [facility] FREE T4 2023-11-22 02:57:00 Alcon [facility] THYROID STIMULATING HORMONE 2023-11-22 02:57:00 Alcon [facility] RAPID INFLUENZA A/B 2023-11-22 02:57:00 Alcon [facility] COVID-19 (ID NOW RAPID TESTING) 2023-11-22 02:57:00 Alcon [facility] LAB ONLY COVID INTERPRETATION 2023-11-22 02:57:00 [facility] AMYLASE 2023-11-22 02:52:00 Megan Rondon [facility] LIPASE 2023-11-22 02:52:00 [facility] TROPONIN I 2023-11-22 02:52:00 Alcon [facility] COMP. METABOLIC PANEL ([id number]) 2023-11-22 02:52:00 Megan Rondon [facility] CBC WITH DIFF 2023-11-22 02:52:00 [facility] N-TERMINAL PRO-BNP 2023-11-22 02:52:00 Megan Rondon [facility] AMYLASE 2023-11-22 02:52:00 Megan Rondon [facility] LIPASE 2023-11-22 02:52:00 Megan Rondon [facility] TROPONIN I 2023-11-22 02:52:00 Megan Rondon [facility] COMP. METABOLIC PANEL ([id number]) 2023-11-22 02:52:00 [facility] WITH DIFF 2023-11-22 02:52:00 [facility] N-TERMINAL PRO-BNP 2023-11-22 02:52:00 [facility]ST 1 VW 2023-11-22 02:34:13 [facility]ST 1 VW 2023-11-22 02:34:13 Megan Rondon [facility] HB ECG ROUTINE & RHYTHM STRIP 2023-11-22 02:16:24 [facility] RADIOLOGY DOCUMENTATION 2023-11-18 18:34:06 Doctor Unassigned, [place] [facility] RADIOLOGY DOCUMENTATION 2023-11-05 19:18:01 Doctor Unassigned, [place] [facility] POCT-GLUCOSE METER 2023-09-08 08:40:00 Bud [facility] CBC W/PLT COUNT & AUTO DIFFERENTIAL 2023-09-08 04:[facility] 2023-09-08 04:[facility]23-09-08 04:16[facility] PHOS[facility] 2023-09-08 04:16:00 [facility] CBC W/PLT COUNT & AUTO DIFFERENTIAL 2023-09-08 04:16:00 [facility] POCT-[facility]SE METER 2023-09-07 21:29:00 Bud [facility] XR KNEE 3 VIEWS LEFT 2023-09-07 19:21:02 Bud [facility] VENOUS DOPPLER LEGS BILATERAL 2023-09-07 12:45:00 Joshua [facility] CBC W/PLT COUNT & AUTO DIFFERENTIAL 2023-09-07 03:17:00 [facility]IC [facility]EL 2023-09-07 03:17:00 Joshua [facility] MAGNESIUM 2023-09-07 03:17:00 [facility] PHOSPHORUS 2023-09-07 03:17:00 [facility] CBC W/PLT COUNT & AUTO DIFFERENTIAL 2023-09-07 03:17:00 [facility] POCT-GLUCOSE METER 2023-09-06 21:17:00 Bud [facility] POCT-GLUCOSE METER 2023-09-06 18:37:00 Bud [facility] POCT-GLUCOSE METER 2023-09-06 13:16:00 Bud [facility] POCT-GLUCOSE METER 2023-09-06 08:21:00 Bud [facility] CBC W/PLT COUNT & AUTO DIFFERENTIAL 2023-09-06 04:49:00 Joshua [facility] BASIC METABOLIC PANEL 2023-09-06 04:49:00 Joshua [facility] MAGNESIUM 2023-09-06 04:49:00 [facility] PHOSPHORUS 2023-09-06 04:49:00 [facility] CBC W/PLT COUNT & AUTO DIFFERENTIAL 2023-09-06 04:49:00 [facility] POCT-GLUCOSE METER 2023-09-05 21:24:00 [facility] MR BRAIN WITH & WITHOUT IV CONTRAST 2023-09-05 11:25:07 Sandi Aleman [facility] POCT-GLUCOSE METER 2023-09-05 08:10:00 [facility] CBC W/PLT COUNT & AUTO DIFFERENTIAL 2023-09-05 04:44:00 [facility] BASIC METABOLIC PANEL 2023-09-05 04:44:00 [facility] MAGNESIUM 2023-09-05 04:44:00 [facility] PHOSPHORUS 2023-09-05 04:44:00 [facility] POCT-GLUCOSE METER 2023-09-05 04:44:00 Lisandra [facility] CBC W/PLT COUNT & AUTO DIFFERENTIAL 2023-09-05 04:44:00 [facility] POCT-GLUCOSE METER 2023-09-04 21:38:00 Lisandra [facility] POCT-GLUCOSE METER 2023-09-04 15:42[facility]00 [facility]FLUENZA/RSV RT-PCR 2023-09-04 11:25:00 [facility] POCT-GLUCOSE METER 2023-09-04 10:53:00 Sabas [facility] POCT-GLUCOSE METER 2023-09-04 08:04:00 Sabas [facility] PROCALCITONIN 2023-09-04 06:56:00 [facility] IRON, TIBC, % SAT. (WITHOUT FERRITIN) 2023-09-04 06:56:00 U[facility] FERRITIN 2023-09-04 06:56:00 [facility] BLOOD CULTURE 2023-09-04 06:37:00 [facility] LUMBAR SPINE WITHOUT IV CONTRAST 2023-09-04 05:47:25 [facility] MR THORACIC SPINE WITHOUT IV CONTRAST 2023-09-04 04:53:00 [facility] MR CERVICAL SPINE WITHOUT IV CONTRAST 2023-09-04 04:18:[address] [facility] CT THORACIC SPINE WITHOUT IV CONTRAST 2023-09-04 03:08:00 Randall [facility] CT LUMBAR SPINE WITHOUT IV CONTRAST 2023-09-04 03:08:00 [facility] LACTIC ACID, VENOUS 2023-09-04 01:42:00 [facility] TYPE AND SCREEN, AUTOMATED 2023-09-04 01:42:00 [facility] CBC W/PLT COUNT & AUTO DIFFERENTIAL 2023-09-04 00:51:00 [facility] COMPREHENSIVE METABOLIC PANEL 2023-09-04 00:51:00 [facility] MAGNESIUM 2023-09-04 00:51:00 [facility] PHOSPHORUS 2023-09-04 00:51:00 [facility] PROTHROMBIN TIME/INR 2023-09-04 00:51:00 [facility] APTT 2023-09-04 00:51:00 [facility] B-TYPE NATRIURETIC FACTOR (BNP) 2023-09-04 00:51:00 [facility] URINALYSIS WITHOUT MICROSCOPIC 2023-09-04 00:51:00 [facility] RAPID DRUG SCREEN, URINE 2023-09-04 00:51:00 [facility] D-DIMER 2023-09-04 00:51:00 London Loyola [facility] FIBRINOGEN 2023-09-04 00:51:00 [facility] CBC W/PLT COUNT & AUTO DIFFERENTIAL 2023-09-04 00:51:00 [facility] EKG-SCANNED 2023-09-04 00:00:00 Provider, Eliceo Schaffer [facility] LACTIC ACID WHOLE BLOOD 2023-08-12 20:31:00 Mj [facility] COMP. METABOLIC PANEL ([id number]) 2023-08-12 20:29:00 Mj [facility] CBC WITH DIFF 2023-08-12 20:29:00 Mj Bryan [facility] CONSENT/REFUSAL FOR DIAGNOSI S AND TREATMENT 2023-08-12 19:43:16 Doctor Unassigned, [facility] TRANSESOPHAGEAL ECHO 2023-06-16 11:05:00 Torrey [facility] T SPOT TB 2023-06-15 04:51:00 Rossy [facility] FUNGITELL R B-D-GLUCAN WITH REFLEX TO TITER 2023-06-15 04:51:00 Rossy [facility] ASPERGILLUS GALACTOMANNAN ANTIGEN 2023-06-15 04:51:00 Rossy [facility] VANCOMYCIN LEVEL, TROUGH 2023-06-15 04:51:00 Kaylene Mendosa [facility] T-SPOT(R).TB ([facility]) 2023-06-15 04:27:00 Provider, Not In System [facility] T-SPOT(R).TB ([facility]) 2023-06-15 04:27:00 System, Provider Not In [facility] ECHO W CONTRAST & DOPPLER 2023-06-14 09:22:00 [facility] HEMOGLOBIN A1C 2023-06-14 04:08:00 Marianela Collazo [facility] CBC (HEMOGRAM ONLY) 2023-06-14 04:08:00 [facility] BASIC METABOLIC PANEL 2023-06-14 04:08:00 [facility] CRYPTOCOCCAL ANTIGEN 2023-06-13 17:21:00 Filiberto Blairco Raul [facility] HC LAB HIV-1 AG W/HIV-1&2 AB 2023-06-13 17:21:00 Rossy deisyco Raul [facility] VENOUS DOPPLER ARM, LEFT 2023-06-13 17:20:00 Marianela Collazo [facility] LEGIONELLA ANTIGEN, URINE 2023-06-13 17:00:00 [facility] SPUTUM CULTURE + GRAM STAIN 2023-06-13 14:33:00 Arif, [facility] MR LUMBAR SPINE WITH & WITHOUT IV CONTRAST 2023-06-13 13:03:47 Burt Nelson [facility] ECG 12-LEAD 2023-06-13 11:47:02 Abbi [facility] ECG 12-LEAD 2023-06-13 11:47:02 Unknown, Hl7 Doctor [facility] MRSA SCREEN 2023-06-13 09:19:00 Torrey [facility] CBC W/PLT COUNT & AUTO DIFFERENTIAL 2023-06-13 06:03:00 [facility] COMPREHENSIVE METABOLIC PANEL 2023-06-13 06:03:00 [facility] PROTHROMBIN TIME/INR 2023-06-13 06:03:00 [facility] CREATINE KINASE (CK) 2023-06-13 06:03:00 [facility] CBC W/PLT COUNT & AUTO DIFFERENTIAL 2023-06-13 06:03:00 [facility] BLOOD CULTURE 2023-06-13 06:02:00 Marianela Collazo [facility] CBC W/PLT COUNT & AUTO DIFFERENTIAL 2023-06-02 04:41:00 [facility] BASIC METABOLIC PANEL 2023-06-02 04:41:00 Sunil [facility] MAGNESIUM 2023-06-02 04:41:00 Sunil Chu [facility] PHOSPHORUS 2023-06-02 04:41:00 Sunil Chu [facility] CBC W/PLT COUNT & AUTO DIFFERENTIAL 2023-06-02 04:41:00 Kimber[facility] XR SPINE LUMBAR 1 VIEW 2023-06-01 10:31:00 [place] [facility] XR SPINE LUMBAR 1 VIEW 2023-06-01 09:46:00 [place] [facility] LAMINECTOMY, SPINE, LUMBAR 2023-06-01 09:10:00 Jose, [facility] PROCEDURE W/ C-ARM 2023-06-01 09:10:00 [facility] LAMINECTOMY, SPINE, LUMBAR 2023-06-01 07:30:00 [facility] PROCEDURE W/ C-ARM 2023-06-01 07:30:00 [place] [facility] SCREEN, URINE 2023-06-01 04:33:00 [facility] BASIC METABOLIC PANEL 2023-05-31 22:55:00 Dallas Gomez [facility] CBC W/PLT COUNT & AUTO DIFFERENTIAL 2023-05-31 22:55:00 Patricia [facility] PT/APTT 2023-05-31 22:55:00 Patricia [facility] CBC W/PLT COUNT & AUTO DIFFERENTIAL 2023-05-31 22:55:00 Dallas Gomez [facility] CT NECK SOFT TISSUE WITHOUT IV CONTRAST 2023-05-31 09:39:30 [facility] TYPE AND SCREEN, AUTOMATED 2023-05-31 09:13:00 [facility] BASIC METABOLIC PANEL 2023-05-29 06:43:00 [facility] CBC W/PLT COUNT & AUTO DIFFERENTIAL 2023-05-29 06:43:00 [facility] CBC W/PLT COUNT & AUTO DIFFERENTIAL 2023-05-29 06:43:00 [facility] XR SPINE CERVICAL 2 OR 3 VIEWS 2023-05-28 18:57:00 [facility] FL FLUORO NON-SPECIFIC UP TO 1 HOUR 2023-05-28 10:48:00 [facility] FL FLUORO NON-SPECIFIC UP TO 1 HOUR 2023-05-28 10:07:00 [facility] DISCECTOMY, SPINE, CERVICAL, ANTERIOR APPROACH, WITH FUSION 2023-05-28 08:15:00 [place] [facility] INSERTION, HARDWARE, SPINAL 2023-05-28 08:15:00 Jose [facility] PROCEDURE, ALLOGRAFT, FOR SPINE SURGERY 2023-05-28 08:15:00 Jose [facility] AUTOGRAFT FOR SPINE SURGERY 2023-05-28 08:15:00 Adam Garcia [facility] PROCEDURE W/ C-ARM 2023-05-28 08:15:00 [place] [facility] NEUROPHYSIOLOGIC MONITORING, INTRAOPERATIVE 2023-05-28 08:15:00 [place] [facility] PROCEDURE, USING OPERATING MICROSCOPE 2023-05-28 08:15:00 [place] [facility] HCG, QUANTITATIVE, 2023-05-28 07:42:00 Yue Bui [facility] TYPE AND SCREEN, AUTOMATED 2023-05-28 07:42:00 Quin Scruggs [facility] XR CHEST 1 VIEW PORTABLE / BEDSIDE 2023-04-01 15:32:16 Thomas Lozoya [facility] B-TYPE NATRIURETIC FACTOR (BNP) 2023-04-01 13:32:00 Thomas Lozoya [facility] ECHO W CONTRAST & DOPPLER 2023-03-31 20:18:37 Luis Carlos [facility] MR CERVICAL SPINE WITHOUT IV CONTRAST 2023-03-31 09:25:00 Edward Lewis [facility] CBC (HEMOGRAM ONLY) 2023-03-31 03:45:00 Luis Carlos [facility] COMPREHENSIVE METABOLIC PANEL 2023-03-31 03:45:00 Luis Carlos [facility] ARTERIAL DOPPLER LEGS BILATERAL 2023-03-30 15:45:[facility] ARTERIAL (ALEISHA'S W/ DOPPLER) ONLY 2023-03-30 15:44:00 Luis Carlos [facility] ECG 12-LEAD 2023-03-30 13:06:22 Luis Carlos [facility] ECG 12-LEAD 2023-03-30 13:06:22 Unknown, Hl7 [facility] MR THORACIC SPINE WITHOUT IV CONTRAST 2023-03-30 12:29:58 Eric [facility] MR LUMBAR SPINE WITHOUT IV CONTRAST 2023-03-30 11:58:00 Eric, [facility] EEG AWAKE AND DROWSY 2023-03-30 09:57:53 [facility], TOTAL 2023-03-30 09:06:00 [facility] URINALYSIS W/ REFLEX URINE CULTURE 2023-03-30 03:54:00 Eric, [facility] CBC (HEMOGRAM ONLY) 2023-03-30 03:52:00 Luis Carlos [facility] COMPREHENSIVE METABOLIC PANEL 2023-03-30 03:52:00 [facility] HEMOGLOBIN A1C 2023-03-30 03:52:00 [facility] PT/APTT 2023-03-30 03:52:00 Thomas oLzoya [facility] EKG-SCANNED 2023-03-29 00:00:00 Provider, Default Scanning [facility] CT HEAD WO CONTRAST 2022-12-11 18:36:49 Alfonso Alvarado [facility] URINE DRUG (IMMUNOASSAY) - COMPREHENSIVE DRUG SCREEN 2022-12-11 17:13:00 Alfonso Alvarado [facility] URINALYSIS 2022-12-11 17:13:00 Alfnoso Alvarado [facility] CT CHEST PULMONARY ANGIOGRAM 2022-12-11 16:26:39 Alfonso Alvarado [facility] MAGNESIUM 2022-12-11 14:57:00 Alfonso Alvarado [facility] COMP. METABOLIC PANEL ([id number]) 2022-12-11 14:57:00 Alfonso Alvarado [facility] D-DIMER 2022-12-11 14:15:00 Alfonso Alvarado [facility] XR CHEST 1 VW 2022-12-11 14:10:26 Alfonso Alvarado [facility] TROPONIN I 2022-12-11 14:02:00 Alfonso Alvarado [facility] CBC WITH DIFF 2022-12-11 14:02:00 Alfonso Alvarado [facility] N-TERMINAL PRO-BNP 2022-12-11 14:02:00 Alfonso Alvarado [facility] HB ECG ROUTINE & RHYTHM STRIP 2022-12-11 14:01:08 Alfonso Alvarado [facility] CONSENT/REFUSAL FOR DIAGNOSI S AND TREATMENT 2022-12-11 13:52:01 Doctor Unassigned, [facility] ECG 12-LEAD 2022-08-03 05:03:32 Unknown, Hl7 Doctor [facility] ECG 12-LEAD 2022-08-03 05:03:32 Unknown, Hl7 [facility] LIPID PANEL 2022-08-02 21:14:00 [facility] TSH/FREE T4 IF INDICATED 2022-08-02 21:14:00 [facility] VITAMIN B12 2022-08-02 21:14:00 [facility] HEMOGLOBIN A1C 2022-08-02 21:14:00 [facility] COMPREHENSIVE METABOLIC PANEL 2022-08-02 21:14:00 [place] [facility] CBC W/PLT COUNT & AUTO DIFFERENTIAL 2022-08-02 21:14:00 [facility] RPR 2022-08-02 21:14:00 [facility] HC LAB HIV-1 AG W/HIV-1&2 AB 2022-08-02 21:14:00 [facility] [facility] C-REACTIVE PROTEIN 2022-08-02 21:14:00 [facility] CBC W/PLT COUNT & AUTO DIFFERENTIAL 2022-08-02 21:14:00 [facility] EKG-SCANNED 2022-08-02 00:00:00 Provider, Default Scanning [facility] CT HEAD WO CONTRAST 2022-08-01 23:52:15 [facility] GALV ONLY - INFLUENZA A B RS V PCR 2022-08-01 18:28:00 Letitia Chambers [facility] TRANSTHORACIC ECHO (TTE) COMPLETE W/ CONTRAST 2022-08-01 14:42:00 Kylee Diego [facility] MAGNESIUM 2022-08-01 10:42:00 [facility] (NA, K , CL, CO2, GLUCOSE, BUN, CREATININE, CA) 2022-08-01 10:42:00 [facility] CBC WITH DIFF 2022-08-01 10:42:00 [facility] N-TERMINAL PRO-BNP 2022-08-01 10:42:00 [facility] POCT GLUCOSE (AUTOMATED) 2022-08-01 06:56:00 [facility] CRITICAL CARE 2022-07-31 22:31:36 Alcon [facility] URINALYSIS 2022-07-31 20:52:00 Alcon [facility] URINE DRUG (IMMUNOASSAY) - COMPREHENSIVE DRUG SCREEN W/O REFLEX 2022-07-31 20:52:00 Alcon [facility] XR CHEST 1 VW 2022-07-31 18:45:17 Alcon [facility] LIPASE 2022-07-31 17:58:00 Alcon [facility] TROPONIN I 2022-07-31 17:58:00 Alcon [facility] COMP. METABOLIC PANEL ([id number]) 2022-07-31 17:58:00 Alcon [facility] CBC WITH DIFF 2022-07-31 17:58:00 Alcon [facility] PROTHROMBIN TIME / INR 2022-07-31 17:58:00 Alcon [facility] ACTIVATED PARTIAL THRMPLAS DAVID 2022-07-31 17:58:00 Alcon [facility] N-TERMINAL PRO-BNP 2022-07-31 17:58:00 Rondon, [facility] HB ECG ROUTINE & RHYTHM STRIP 2022-07-31 17:46:28 Megan Rondon [facility] NOTICE OF PRIVACY PRACTICES 2022-07-31 17:35:38 Doctor Unassigned, [place] [facility] CONSENT/REFUSAL FOR DIAGNOSI S AND TREATMENT 2022-07-31 17:35:13 Doctor Unassigned, [place] [facility] PHOSPHORUS 2022-05-08 05:51:00 Azeem Meehan [facility] MAGNESIUM 2022-05-08 05:51:[address] [facility] BASIC METABOLIC PANEL (NA, K , CL, CO2, GLUCOSE, BUN, CREATININE, CA) 2022-05-08 05:51:[address] [facility] CBC WITH DIFF 2022-05-08 05:51:[address] [facility] BASIC METABOLIC PANEL (NA, K , CL, CO2, GLUCOSE, BUN, CREATININE, CA) 2022-05-07 07:09:00 John Cintron [facility] CBC WITH DIFF 2022-05-07 07:09:00 John Cintron [facility] POCT GLUCOSE (AUTOMATED) 2022-05-07 01:16:00 Brandyn Mcfarlane [facility] HB ABO GROUPING 2022-05-06 05:07:00 Ismael Dunn [facility] BASIC METABOLIC PANEL (NA, K , CL, CO2, GLUCOSE, BUN, CREATININE, CA) 2022-05-06 05:04:[address] [facility] CBC WITH DIFF 2022-05-06 05:04:[address] [facility] KEPPRA (LEVETIRACETAM) 2022-05-06 05:04:[address] [facility] MR LUMBAR SPINE WO CONTRAST 2022-05-06 02:54:37 Ender Monet [facility] ELECTROENCEPHALOGRAM 2022-05-06 00:00:00 John Cintron [facility] BASIC METABOLIC PANEL (NA, K , CL, CO2, GLUCOSE, BUN, CREATININE, CA) 2022-05-05 07:57:00 Ismael Dunn [facility] CBC WITH DIFF 2022-05-05 07:57:00 Ismael Dunn [facility] PROTHROMBIN TIME / INR 2022-05-05 07:57:00 Ismael Dunn [facility] ACTIVATED PARTIAL THRMPLAS DAVID 2022-05-05 07:57:00 [facility] 2022-05-05 07:57:00 Shaun Jewish [facility] EMERGENCY SERVICES AGREEMENT S AND AUTHORIZATIONS 2022-05-04 05:01:00 Doctor Unassigned, [place] [facility] VITAMIN D, 25-OH 2022-04-15 16:53:00 Sen [place] [facility] MR THORACIC SPINE WO CONTRAST 2022-04-15 11:56:19 Harshil [facility] MR CERVICAL SPINE WO CONTRAST 2022-04-15 11:20:00 Harshil [facility] BASIC METABOLIC PANEL (NA, K , CL, CO2, GLUCOSE, BUN, CREATININE, CA) 2022-04-15 10:36:00 Charmaine Morataya [facility] TEST, URINE 2022-04-15 04:39:00 Harshil [facility] URINE DRUG (IMMUNOASSAY) - COMPREHENSIVE DRUG SCREEN 2022-04-15 04:39:00 Harshil [facility] URINALYSIS 2022-04-15 04:39:00 Harshil [facility] TRANSTHORACIC ECHO (TTE) COMPLETE W/ CONTRAST 2022-04-14 16:37:03 Harshil [facility] KEPPRA (LEVETIRACETAM) 2022-04-14 15:30:00 Harshil [facility] MAGNESIUM 2022-04-14 10:03:00 Harshil [facility] BASIC METABOLIC PANEL (NA, K , CL, CO2, GLUCOSE, BUN, CREATININE, CA) 2022-04-14 10:03:00 Harshil [facility] MR LUMBAR SPINE WO CONTRAST 2022-04-14 02:48:12 Harshil [facility] MR STROKE BRAIN WO CONTRAST 2022-04-14 02:29:00 Harshil [facility] CT STROKE ANGIOGRAM HEAD 2022-04-13 18:40:00 Sapna Vargas [facility] CT STROKE ANGIOGRAM NECK 2022-04-13 18:40:00 Sapna Vargas [facility] CT STROKE HEAD WO CONTRAST 2022-04-13 18:36:00 Sapna Vargas [facility] TROPONIN I 2022-04-13 18:17:00 Sapna Vargas [facility] THYROID STIMULATING HORMONE 2022-04-13 18:17:00 Harshil [facility] BASIC METABOLIC PANEL (NA, K , CL, CO2, GLUCOSE, BUN, CREATININE, CA) 2022-04-13 18:17:00 Sapna Vargas [facility] LIPID PANEL ([id number])(TOTAL CHOLESTEROL, TRIGLYCERIDES, HDL) 2022-04-13 18:17:00 Harshil [facility] CBC WITHOUT DIFF 2022-04-13 18:17:00 Sapna Vargas [facility] GLYCOSYLATED HEMOGLOBIN (A1C) 2022-04-13 18:17:00 Harshil [facility] PROTHROMBIN TIME / INR 2022-04-13 18:17:00 Sapna Vargas [facility] ACTIVATED PARTIAL THRMPLAS DAVID 2022-04-13 18:17:00 Sapna Vargas [facility] COVID-19 (ID NOW RAPID TESTING) 2022-04-13 18:17:00 Sapna Vargas [facility] LAB ONLY COVID INTERPRETATION 2022-04-13 18:17:00 Sapna Vargas [facility] HB ECG ROUTINE & RHYTHM STRIP 2022-04-13 18:15:49 Sapna Vargas [facility] CONSENT/REFUSAL FOR DIAGNOSI S AND TREATMENT 2022-04-13 18:05:14 Doctor Unassigned, [place] [facility] HOSPITAL ADMISSION 2022-04-13 05:01:00 Doctor Unassigned, [place] [facility] SARS-COV-2 COVID-19 VACCINE 12 YRS+,0.3ML,IM (PFIZER - ROSE TOP) 2022-02-19 15:21:12 Doctor Unassigned, [place] [facility] URINE DRUG (IMMUNOASSAY) - COMPREHENSIVE DRUG SCREEN W/O REFLEX 2021-11-23 21:21:00 Williams Allison [facility] CT HEAD WO CONTRAST 2021-11-23 20:58:00 Williams Allison [facility] POCT TEST 2021-11-23 20:46:00 Williams Allison [facility] URINALYSIS 2021-11-23 20:43:00 Williams Allison [facility] LIPASE 2021-11-23 20:27:00 Williams Allison [facility] TROPONIN I 2021-11-23 20:27:00 Williams Allison [facility] COMP. METABOLIC PANEL ([id number]) 2021-11-23 20:27:00 Williams Allison [facility] CBC WITH DIFF 2021-11-23 20:27:00 Williams Allison [facility] POCT GLUCOSE (AUTOMATED) 2021-11-23 20:15:00 Doctor Unassigned, [place] [facility] SARS-COV-2 COVID-19 VACCINE,0.3ML,IM (PFIZER) 2021-05-24 14:23:12 Doctor Unassigned, [place] [facility] SARS-COV-2 COVID-19 VACCINE,0.3ML,IM (PFIZER) 2021-05-03 14:59:29 Doctor Unassigned, [place] [facility] EMERGENCY SERVICES AGREEMENT S AND AUTHORIZATIONS 2021-04-16 05:01:00 Doctor Unassigned, [place] [facility] URINALYSIS 2021-03-17 03:09:00 Fabrice Chakraborty [facility] XR CHEST 1 VW 2021-03-17 01:45:07 Fabrice Chakraborty [facility] TROPONIN I 2021-03-17 01:35:00 Fabrice Chakraborty [facility] COMP. METABOLIC PANEL ([id number]) 2021-03-17 01:35:00 Fabrice Chakraborty [facility] CBC WITH DIFF 2021-03-17 01:35:00 Fabrice Chakraborty [facility] N-TERMINAL PRO-BNP 2021-03-17 01:35:00 [facility] COVID-19 (ID NOW RAPID TESTING) 2021-03-17 00:58:00 Mj Bryan [facility] CONSENT/REFUSAL FOR DIAGNOSI S AND TREATMENT 2021-03-17 00:32:59 Doctor Unassigned, [place] [facility] COVID-19 (ID NOW RAPID TESTING) 2021-02-19 17:04:00 Estefania Monroy [facility] CT ABDOMEN PELVIS W CONTRAST 2021-02-19 16:41:18 Estefania Monroy [facility] LIPASE 2021-02-19 15:58:00 Estefania Monroy [facility] COMP. METABOLIC PANEL ([id number]) 2021-02-19 15:58:00 Estefania Monroy [facility] CBC WITH DIFF 2021-02-19 15:58:00 Estefania Monroy [facility] URINALYSIS 2021-02-19 15:58:00 Estefania Monroy [facility] NOTICE OF PRIVACY PRACTICES 2021-02-19 15:30:46 Doctor Unassigned, [facility] CONSENT/REFUSAL FOR DIAGNOSI S AND TREATMENT 2021-02-19 15:30:30 Doctor Unassigned, [place] [facility] Plan of Care Planned Activity Planned Date Details Comments Source Future Scheduled Test 2025-08-02 00:00:00 Lipid panel (procedure) [code = 70443744] [facility] Future Scheduled Test 2025-08-02 00:00:00 Lipid panel (procedure) [code = 38852485] [facility] Future Scheduled Test 2025-08-02 00:00:00 Lipid panel (procedure) [code = 62805646] [facility] Future Scheduled Test 2025-08-02 00:00:00 Lipid panel (procedure) [code = 39500933] [facility] Future Scheduled Test 2025-08-02 00:00:00 Lipid panel (procedure) [code = 95640969] [facility] Future Scheduled Test 2025-08-02 00:00:00 Lipid panel (procedure) [code = 74654095] [facility] Future Scheduled Test 2025-08-02 00:00:00 Lipid panel (procedure) [code = 54770243] [facility] Future Scheduled Test 2025-08-02 00:00:00 Lipid panel (procedure) [code = 14185345] [facility] Future Scheduled Test 2025-08-02 00:00:00 Lipid panel (procedure) [code = 23028994] [facility] Future Scheduled Test 2025-08-02 00:00:00 Lipid panel (procedure) [code = 61528546] [facility] Future Scheduled Test 2025-08-02 00:00:00 Lipid panel (procedure) [code = 92543892] [facility] Future Scheduled Test 2025-08-02 00:00:00 Lipid panel (procedure) [code = 24720180] [facility] Future Scheduled Test 2025-08-02 00:00:00 Lipid panel (procedure) [code = 10036626] [facility] Future Scheduled Test 2025-08-02 00:00:00 Lipid panel (procedure) [code = 19764805] [facility] Future Scheduled Test 2025-08-02 00:00:00 Lipid panel (procedure) [code = 44425706] [facility] Future Scheduled Test 2025-08-02 00:00:00 Lipid panel (procedure) [code = 89904016] [facility] Future Scheduled Test 2025-08-02 00:00:00 Lipid panel (procedure) [code = 89194566] [facility] Future Scheduled Test 2025-08-02 00:00:00 Lipid panel (procedure) [code = 26502693] [facility] Future Scheduled Test 2025-08-02 00:00:00 Lipid panel (procedure) [code = 27425245] [facility] Future Scheduled Test 2025-08-02 00:00:00 Lipid panel (procedure) [code = 23595595] [facility] Future Scheduled Test 2025-08-02 00:00:00 Lipid panel (procedure) [code = 50476363] [facility] Future Scheduled Test 2025-08-02 00:00:00 Lipid panel (procedure) [code = 93920201] [facility] Future Scheduled Test 2025-08-02 00:00:00 Lipid panel (procedure) [code = 09126445] [facility] Future Scheduled Test 2025-08-02 00:00:00 Lipid panel (procedure) [code = 89975256] [facility] Future Scheduled Test 2025-08-02 00:00:00 Lipid panel (procedure) [code = 96823102] [facility] Future Scheduled Test 2025-08-02 00:00:00 Lipid panel (procedure) [code = 80147357] [facility] Future Scheduled Test 2025-08-02 00:00:00 Lipid panel (procedure) [code = 05755606] [facility] Future Scheduled Test 2025-08-02 00:00:00 Lipid panel (procedure) [code = 77882318] [facility] Future Scheduled Test 2025-08-02 00:00:00 Lipid panel (procedure) [code = 73830946] [facility] Future Scheduled Test 2025-08-02 00:00:00 Lipid panel (procedure) [code = 03066143] [facility] Future Scheduled Test 2025-08-02 00:00:00 Lipid panel (procedure) [code = 21235783] [facility] Future Scheduled Test 2025-08-02 00:00:00 Lipid panel (procedure) [code = 27666725] [facility] Future Scheduled Test 2025-08-02 00:00:00 Lipid panel (procedure) [code = 28862113] [facility] Future Scheduled Test 2025-08-02 00:00:00 Lipid panel (procedure) [code = 32982043] [facility] Future Scheduled Test 2025-08-02 00:00:00 Lipid panel (procedure) [code = 19126833] [facility] Future Scheduled Test 2025-08-02 00:00:00 Lipid panel (procedure) [code = 19965459] [facility] Future Scheduled Test 2025-08-02 00:00:00 Lipid panel (procedure) [code = 60508489] [facility] Future Scheduled Test 2025-08-02 00:00:00 Lipid panel (procedure) [code = 17903652] [facility] Future Scheduled Test 2025-08-02 00:00:00 Lipid panel (procedure) [code = 17506570] [facility] Future Scheduled Test 2025-08-02 00:00:00 Lipid panel (procedure) [code = 04569600] [facility] Future Scheduled Test 2025-08-02 00:00:00 Lipid panel (procedure) [code = 19953754] [facility] Future Scheduled Test 2025-08-02 00:00:00 Lipid panel (procedure) [code = 57536001] [facility] Future Scheduled Test 2025-08-02 00:00:00 Lipid panel (procedure) [code = 81459050] [facility] Future Scheduled Test 2025-08-02 00:00:00 Lipid panel (procedure) [code = 88926924] [facility] Future Scheduled Test 2025-08-02 00:00:00 Lipid panel (procedure) [code = 04752868] [facility] Future Scheduled Test 2025-08-02 00:00:00 Lipid panel (procedure) [code = 24149640] [facility] Future Scheduled Test 2025-08-02 00:00:00 Lipid panel (procedure) [code = 86481872] [facility] Future Scheduled Test 2025-08-02 00:00:00 Lipid panel (procedure) [code = 47744648] [facility] Future Scheduled Test 2025-08-02 00:00:00 Lipid panel (procedure) [code = 99526162] [facility] Future Scheduled Test 2025-08-02 00:00:00 Lipid panel (procedure) [code = 94482876] [facility] Future Scheduled Test 2025-08-02 00:00:00 Lipid panel (procedure) [code = 86897179] [facility] Future Scheduled Test 2025-08-02 00:00:00 Lipid panel (procedure) [code = 40158321] [facility] Future Scheduled Test 2025-08-02 00:00:00 Lipid panel (procedure) [code = 74595762] [facility] Future Scheduled Test 2025-08-02 00:00:00 Lipid panel (procedure) [code = 73602537] [facility] Future Scheduled Test 2025-08-02 00:00:00 Lipid panel (procedure) [code = 39635256] [facility] Future Scheduled Test 2025-08-02 00:00:00 Lipid panel (procedure) [code = 41142570] [facility] Future Scheduled Test 2025-08-02 00:00:00 Lipid panel (procedure) [code = 05635023] [facility] Future Scheduled Test 2025-08-02 00:00:00 Lipid panel (procedure) [code = 23378293] [facility] Future Scheduled Test 2025-08-02 00:00:00 Lipid panel (procedure) [code = 88395168] [facility] Future Scheduled Test 2025-08-02 00:00:00 Lipid panel (procedure) [code = 32019709] [facility] Future Scheduled Test 2025-08-02 00:00:00 Lipid panel (procedure) [code = 79880114] [facility] Future Scheduled Test 2025-08-02 00:00:00 Lipid panel (procedure) [code = 33684800] [facility] Future Scheduled Test 2025-08-02 00:00:00 Lipid panel (procedure) [code = 56315028] [facility] Future Scheduled Test 2025-08-02 00:00:00 Lipid panel (procedure) [code = 79349048] [facility] Future Scheduled Test 2025-08-02 00:00:00 Lipid panel (procedure) [code = 79398791] [facility] Future Scheduled Test 2025-08-02 00:00:00 Lipid panel (procedure) [code = 77279878] [facility] Future Scheduled Test 2025-08-02 00:00:00 Lipid panel (procedure) [code = 98687420] [facility] Future Scheduled Test 2025-08-02 00:00:00 Lipid panel (procedure) [code = 41425222] [facility] Future Scheduled Test 2025-08-02 00:00:00 Lipid panel (procedure) [code = 50703532] [facility] Future Scheduled Test 2025-08-02 00:00:00 Lipid panel (procedure) [code = 27505957] [facility] Scheduled Test 2024-05-28 00:00:00 Tobacco Cessation Counseling and Screening (12+) [code = Tobacco Cessation Counseling and Screening (12+)] [facility] Scheduled Test 2024-05-28 00:00:00 Tobacco Cessation Counseling and Screening (12+) [code = Tobacco Cessation Counseling and Screening (12+)] [facility] Scheduled Test 2024-05-28 00:00:00 Tobacco Cessation Counseling and Screening (12+) [code = Tobacco Cessation Counseling and Screening (12+)] [facility] Scheduled Test 2024-05-28 00:00:00 Tobacco Cessation Counseling and Screening (12+) [code = Tobacco Cessation Counseling and Screening (12+)] [facility] Scheduled Test 2024-05-28 00:00:00 Tobacco Cessation Counseling and Screening (12+) [code = Tobacco Cessation Counseling and Screening (12+)] [facility] Scheduled Test 2024-05-28 00:00:00 Tobacco Cessation Counseling and Screening (12+) [code = Tobacco Cessation Counseling and Screening (12+)] [facility] Future Scheduled Test 2024-05-28 00:00:00 Tobacco Cessation Counseling and Screening (12+) [code = Tobacco Cessation Counseling and Screening (12+)] [facility] Scheduled Test 2024-05-28 00:00:00 Tobacco Cessation Counseling and Screening (12+) [code = Tobacco Cessation Counseling and Screening (12+)] [facility] Future Scheduled Test 2024-05-28 00:00:00 Tobacco Cessation Counseling and Screening (12+) [code = Tobacco Cessation Counseling and Screening (12+)] [facility] Scheduled Test 2024-05-28 00:00:00 Tobacco Cessation Counseling and Screening (12+) [code = Tobacco Cessation Counseling and Screening (12+)] [facility] Scheduled Test 2024-05-28 00:00:00 Tobacco Cessation Counseling and Screening (12+) [code = Tobacco Cessation Counseling and Screening (12+)] [facility] Scheduled Test 2024-05-28 00:00:00 Tobacco Cessation Counseling and Screening (12+) [code = Tobacco Cessation Counseling and Screening (12+)] [facility] Scheduled Test 2024-05-28 00:00:00 Tobacco Cessation Counseling and Screening (12+) [code = Tobacco Cessation Counseling and Screening (12+)] [facility] Scheduled Test 2024-05-28 00:00:00 Tobacco Cessation Counseling and Screening (12+) [code = Tobacco Cessation Counseling and Screening (12+)] [facility] Scheduled Test 2024-05-28 00:00:00 Tobacco Cessation Counseling and Screening (12+) [code = Tobacco Cessation Counseling and Screening (12+)] [facility] Scheduled Test 2024-05-28 00:00:00 Tobacco Cessation Counseling and Screening (12+) [code = Tobacco Cessation Counseling and Screening (12+)] [facility] Scheduled Test 2024-05-28 00:00:00 Tobacco Cessation Counseling and Screening (12+) [code = Tobacco Cessation Counseling and Screening (12+)] [facility] Scheduled Test 2024-05-28 00:00:00 Tobacco Cessation Counseling and Screening (12+) [code = Tobacco Cessation Counseling and Screening (12+)] [facility] Scheduled Test 2024-05-28 00:00:00 Tobacco Cessation Counseling and Screening (12+) [code = Tobacco Cessation Counseling and Screening (12+)] [facility] Scheduled Test 2024-05-28 00:00:00 Tobacco Cessation Counseling and Screening (12+) [code = Tobacco Cessation Counseling and Screening (12+)] [facility] Scheduled Test 2024-05-28 00:00:00 Tobacco Cessation Counseling and Screening (12+) [code = Tobacco Cessation Counseling and Screening (12+)] [facility] Future Scheduled Test 2024-05-28 00:00:00 Tobacco Cessation Counseling and Screening (12+) [code = Tobacco Cessation Counseling and Screening (12+)] [facility] Scheduled Test 2024-05-28 00:00:00 Tobacco Cessation Counseling and Screening (12+) [code = Tobacco Cessation Counseling and Screening (12+)] [facility] Scheduled Test 2024-05-28 00:00:00 Tobacco Cessation Counseling and Screening (12+) [code = Tobacco Cessation Counseling and Screening (12+)] [facility] Scheduled Test 2024-05-28 00:00:00 Tobacco Cessation Counseling and Screening (12+) [code = Tobacco Cessation Counseling and Screening (12+)] [facility] Scheduled Test 2024-05-28 00:00:00 Tobacco Cessation Counseling and Screening (12+) [code = Tobacco Cessation Counseling and Screening (12+)] [facility] Scheduled Test 2024-05-28 00:00:00 Tobacco Cessation Counseling and Screening (12+) [code = Tobacco Cessation Counseling and Screening (12+)] [facility] Scheduled Test 2024-05-28 00:00:00 Tobacco Cessation Counseling and Screening (12+) [code = Tobacco Cessation Counseling and Screening (12+)] [facility] Scheduled Test 2024-05-28 00:00:00 Tobacco Cessation Counseling and Screening (12+) [code = Tobacco Cessation Counseling and Screening (12+)] [facility] Scheduled Test 2024-05-28 00:00:00 Tobacco Cessation Counseling and Screening (12+) [code = Tobacco Cessation Counseling and Screening (12+)] [facility] Future Scheduled Test 2024-05-28 00:00:00 Tobacco Cessation Counseling and Screening (12+) [code = Tobacco Cessation Counseling and Screening (12+)] [facility] Scheduled Test 2024-05-28 00:00:00 Tobacco Cessation Counseling and Screening (12+) [code = Tobacco Cessation Counseling and Screening (12+)] [facility] Scheduled Test 2024-05-28 00:00:00 Tobacco Cessation Counseling and Screening (12+) [code = Tobacco Cessation Counseling and Screening (12+)] [facility] Scheduled Test 2024-05-28 00:00:00 Tobacco Cessation Counseling and Screening (12+) [code = Tobacco Cessation Counseling and Screening (12+)] [facility] Scheduled Test 2024-05-28 00:00:00 Tobacco Cessation Counseling and Screening (12+) [code = Tobacco Cessation Counseling and Screening (12+)] [facility] Scheduled Test 2024-05-28 00:00:00 Tobacco Cessation Counseling and Screening (12+) [code = Tobacco Cessation Counseling and Screening (12+)] [facility] [facility] Scheduled Test 2024-05-28 00:00:00 Tobacco Cessation Counseling and Screening (12+) [code = Tobacco Cessation Counseling and Screening (12+)] [facility] Scheduled Test 2024-05-28 00:00:00 Tobacco Cessation Counseling and Screening (12+) [code = Tobacco Cessation Counseling and Screening (12+)] [facility] Scheduled Test 2024-05-28 00:00:00 Tobacco Cessation Counseling and Screening (12+) [code = Tobacco Cessation Counseling and Screening (12+)] [facility] Scheduled Test 2024-05-28 00:00:00 Tobacco Cessation Counseling and Screening (12+) [code = Tobacco Cessation Counseling and Screening (12+)] [facility] Scheduled Test 2024-05-28 00:00:00 Tobacco Cessation Counseling and Screening (12+) [code = Tobacco Cessation Counseling and Screening (12+)] [facility] Scheduled Test 2024-05-28 00:00:00 Tobacco Cessation Counseling and Screening (12+) [code = Tobacco Cessation Counseling and Screening (12+)] [facility] Scheduled Test 2024-05-28 00:00:00 Tobacco Cessation Counseling and Screening (12+) [code = Tobacco Cessation Counseling and Screening (12+)] [facility] Scheduled Test 2024-05-28 00:00:00 Tobacco Cessation Counseling and Screening (12+) [code = Tobacco Cessation Counseling and Screening (12+)] [facility] Scheduled Test 2024-05-28 00:00:00 Tobacco Cessation Counseling and Screening (12+) [code = Tobacco Cessation Counseling and Screening (12+)] [facility] Scheduled Test 2024-05-26 00:00:00 Tobacco Cessation Counseling and Screening (12+) [code = Tobacco Cessation Counseling and Screening (12+)] [facility] Scheduled Test 2024-05-26 00:00:00 Tobacco Cessation Counseling and Screening (12+) [code = Tobacco Cessation Counseling and Screening (12+)] [facility] Scheduled Test 2024-03-20 00:00:00 Influenza Vaccine (Season Ended) [code = Influenza Vaccine (Season Ended)] [facility] Scheduled Test 2024-03-20 00:00:00 Influenza Vaccine (Season Ended) [code = Influenza Vaccine (Season Ended)] [facility] Scheduled Test 2024-03-20 00:00:00 Influenza Vaccine (Season Ended) [code = Influenza Vaccine (Season Ended)] [facility] Scheduled Test 2024-03-20 00:00:00 Influenza Vaccine (Season Ended) [code = Influenza Vaccine (Season Ended)] [facility] Scheduled Test 2024-03-20 00:00:00 Influenza Vaccine (Season Ended) [code = Influenza Vaccine (Season Ended)] [facility] Scheduled Test 2024-03-20 00:00:00 Influenza Vaccine (Season Ended) [code = Influenza Vaccine (Season Ended)] [facility] Scheduled Test 2024-03-20 00:00:00 Influenza Vaccine (Season Ended) [code = Influenza Vaccine (Season Ended)] [facility] Scheduled Test 2024-03-20 00:00:00 Influenza Vaccine (Season Ended) [code = Influenza Vaccine (Season Ended)] [facility] Scheduled Test 2024-03-20 00:00:00 Influenza Vaccine (Season Ended) [code = Influenza Vaccine (Season Ended)] [facility] Scheduled Test 2024-03-20 00:00:00 Influenza Vaccine (Season Ended) [code = Influenza Vaccine (Season Ended)] [facility] Scheduled Test 2023-07-20 00:00:00 DEPRESSION SCREENING (12+) [code = DEPRESSION SCREENING (12+)] [facility] Scheduled Test 2023-07-20 00:00:00 DEPRESSION SCREENING (12+) [code = DEPRESSION SCREENING (12+)] [facility] Scheduled Test 2023-07-20 00:00:00 DEPRESSION SCREENING (12+) [code = DEPRESSION SCREENING (12+)] [facility] Scheduled Test 2023-07-20 00:00:00 DEPRESSION SCREENING (12+) [code = DEPRESSION SCREENING (12+)] [facility] Scheduled Test 2023-07-20 00:00:00 DEPRESSION SCREENING (12+) [code = DEPRESSION SCREENING (12+)] [facility] Scheduled Test 2023-07-20 00:00:00 DEPRESSION SCREENING (12+) [code = DEPRESSION SCREENING (12+)] [facility] Scheduled Test 2023-07-20 00:00:00 DEPRESSION SCREENING (12+) [code = DEPRESSION SCREENING (12+)] [facility] Scheduled Test 2023-07-20 00:00:00 DEPRESSION SCREENING (12+) [code = DEPRESSION SCREENING (12+)] [facility] Scheduled Test 2023-07-20 00:00:00 DEPRESSION SCREENING (12+) [code = DEPRESSION SCREENING (12+)] [facility] Scheduled Test 2023-07-20 00:00:00 DEPRESSION SCREENING (12+) [code = DEPRESSION SCREENING (12+)] [facility] Scheduled Test 2023-07-20 00:00:00 DEPRESSION SCREENING (12+) [code = DEPRESSION SCREENING (12+)] [facility] Scheduled Test 2023-07-20 00:00:00 DEPRESSION SCREENING (12+) [code = DEPRESSION SCREENING (12+)] [facility] Scheduled Test 2023-07-20 00:00:00 DEPRESSION SCREENING (12+) [code = DEPRESSION SCREENING (12+)] [facility] Scheduled Test 2023-07-20 00:00:00 DEPRESSION SCREENING (12+) [code = DEPRESSION SCREENING (12+)] [facility] Scheduled Test 2023-07-20 00:00:00 DEPRESSION SCREENING (12+) [code = DEPRESSION SCREENING (12+)] [facility] Scheduled Test 2023-07-20 00:00:00 DEPRESSION SCREENING (12+) [code = DEPRESSION SCREENING (12+)] [facility] Scheduled Test 2023-07-20 00:00:00 DEPRESSION SCREENING (12+) [code = DEPRESSION SCREENING (12+)] [facility] Scheduled Test 2023-07-20 00:00:00 DEPRESSION SCREENING (12+) [code = DEPRESSION SCREENING (12+)] [facility] Scheduled Test 2023-07-20 00:00:00 DEPRESSION SCREENING (12+) [code = DEPRESSION SCREENING (12+)] [facility] Scheduled Test 2023-07-20 00:00:00 DEPRESSION SCREENING (12+) [code = DEPRESSION SCREENING (12+)] [facility] Scheduled Test 2023-07-20 00:00:00 DEPRESSION SCREENING (12+) [code = DEPRESSION SCREENING (12+)] [facility] Scheduled Test 2023-07-20 00:00:00 DEPRESSION SCREENING (12+) [code = DEPRESSION SCREENING (12+)] [facility] Scheduled Test 2023-07-20 00:00:00 DEPRESSION SCREENING (12+) [code = DEPRESSION SCREENING (12+)] [facility] Scheduled Test 2023-07-20 00:00:00 DEPRESSION SCREENING (12+) [code = DEPRESSION SCREENING (12+)] [facility] Scheduled Test 2023-07-20 00:00:00 DEPRESSION SCREENING (12+) [code = DEPRESSION SCREENING (12+)] [facility] Scheduled Test 2023-07-20 00:00:00 DEPRESSION SCREENING (12+) [code = DEPRESSION SCREENING (12+)] [facility] Scheduled Test 2023-07-20 00:00:00 DEPRESSION SCREENING (12+) [code = DEPRESSION SCREENING (12+)] [facility] Scheduled Test 2023-07-20 00:00:00 DEPRESSION SCREENING (12+) [code = DEPRESSION SCREENING (12+)] [facility] Scheduled Test 2023-07-20 00:00:00 DEPRESSION SCREENING (12+) [code = DEPRESSION SCREENING (12+)] [facility] Scheduled Test 2023-07-20 00:00:00 DEPRESSION SCREENING (12+) [code = DEPRESSION SCREENING (12+)] [facility] Scheduled Test 2023-07-20 00:00:00 DEPRESSION SCREENING (12+) [code = DEPRESSION SCREENING (12+)] [facility] Scheduled Test 2023-07-20 00:00:00 DEPRESSION SCREENING (12+) [code = DEPRESSION SCREENING (12+)] [facility] Scheduled Test 2023-07-20 00:00:00 DEPRESSION SCREENING (12+) [code = DEPRESSION SCREENING (12+)] [facility] Scheduled Test 2023-07-20 00:00:00 DEPRESSION SCREENING (12+) [code = DEPRESSION SCREENING (12+)] [facility] Scheduled Test 2023-07-20 00:00:00 DEPRESSION SCREENING (12+) [code = DEPRESSION SCREENING (12+)] [facility] Scheduled Test 2023-07-20 00:00:00 DEPRESSION SCREENING (12+) [code = DEPRESSION SCREENING (12+)] [facility] Scheduled Test 2023-07-20 00:00:00 DEPRESSION SCREENING (12+) [code = DEPRESSION SCREENING (12+)] [facility] Scheduled Test 2023-03-20 00:00:00 INFLUENZA VACCINE (Season Ended) [code = INFLUENZA VACCINE (Season Ended)] [facility] Scheduled Test 2023-03-20 00:00:00 INFLUENZA VACCINE (Season Ended) [code = INFLUENZA VACCINE (Season Ended)] [facility] Scheduled Test 2023-03-20 00:00:00 INFLUENZA VACCINE (Season Ended) [code = INFLUENZA VACCINE (Season Ended)] [facility] Scheduled Test 2023-03-20 00:00:00 INFLUENZA VACCINE (Season Ended) [code = INFLUENZA VACCINE (Season Ended)] [facility] Scheduled Test 2023-03-20 00:00:00 INFLUENZA VACCINE (Season Ended) [code = INFLUENZA VACCINE (Season Ended)] [facility] Scheduled Test 2023-03-20 00:00:00 INFLUENZA VACCINE (Season Ended) [code = INFLUENZA VACCINE (Season Ended)] [facility] Scheduled Test 2023-03-20 00:00:00 Influenza Vaccine (Season Ended) [code = Influenza Vaccine (Season Ended)] [facility] Scheduled Test 2023-03-20 00:00:00 Influenza Vaccine (Season Ended) [code = Influenza Vaccine (Season Ended)] [facility] Scheduled Test 2023-03-20 00:00:00 Influenza Vaccine (#1) [code = Influenza Vaccine (#1)] [facility] Scheduled Test 2023-03-20 00:00:00 Influenza Vaccine (#1) [code = Influenza Vaccine (#1)] [facility] Scheduled Test 2023-03-20 00:00:00 Influenza Vaccine (#1) [code = Influenza Vaccine (#1)] [facility] Scheduled Test 2023-03-20 00:00:00 Influenza Vaccine (#1) [code = Influenza Vaccine (#1)] [facility] Scheduled Test 2023-03-20 00:00:00 COVID-19 VACCINE ( season) [code = COVID-19 VACCINE ( season)] [facility] Scheduled Test 2023-03-20 00:00:00 Influenza Vaccine (#1) [code = Influenza Vaccine (#1)] [facility] Scheduled Test 2023-03-20 00:00:00 COVID-19 VACCINE ( season) [code = COVID-19 VACCINE ( season)] [facility] Scheduled Test 2023-03-20 00:00:00 Influenza Vaccine (#1) [code = Influenza Vaccine (#1)] [facility] Scheduled Test 2023-03-20 00:00:00 COVID-19 VACCINE ( season) [code = COVID-19 VACCINE ( season)] [facility] Scheduled Test 2023-03-20 00:00:00 Influenza Vaccine (#1) [code = Influenza Vaccine (#1)] [facility] Scheduled Test 2023-03-20 00:00:00 COVID-19 VACCINE ( season) [code = COVID-19 VACCINE ( season)] [facility] Scheduled Test 2023-03-20 00:00:00 Influenza Vaccine (#1) [code = Influenza Vaccine (#1)] [facility] Scheduled Test 2023-03-20 00:00:00 Influenza Vaccine (#1) [code = Influenza Vaccine (#1)] [facility] Scheduled Test 2023-03-20 00:00:00 COVID-19 VACCINE ( season) [code = COVID-19 VACCINE ()] [facility] Scheduled Test 2023-03-20 00:00:00 Influenza Vaccine (#1) [code = Influenza Vaccine (#1)] [facility] Scheduled Test 2023-03-20 00:00:00 COVID-19 VACCINE () [code = COVID-19 VACCINE ()] [facility] Scheduled Test 2023-03-20 00:00:00 Influenza Vaccine (#1) [code = Influenza Vaccine (#1)] [facility] Scheduled Test 2023-03-20 00:00:00 COVID-19 VACCINE () [code = COVID-19 VACCINE ()] [facility] Scheduled Test 2023-03-20 00:00:00 Influenza Vaccine (#1) [code = Influenza Vaccine (#1)] [facility] Scheduled Test 2023-03-20 00:00:00 COVID-19 VACCINE ( season) [code = COVID-19 VACCINE ( season)] [facility] Scheduled Test 2023-03-20 00:00:00 Influenza Vaccine (#1) [code = Influenza Vaccine (#1)] [facility] Scheduled Test 2023-03-20 00:00:00 COVID-19 VACCINE () [code = COVID-19 VACCINE ( season)] [facility] Scheduled Test 2023-03-20 00:00:00 Influenza Vaccine (#1) [code = Influenza Vaccine (#1)] [facility] Scheduled Test 2023-03-20 00:00:00 COVID-19 VACCINE ( season) [code = COVID-19 VACCINE ( season)] [facility] Scheduled Test 2023-03-20 00:00:00 Influenza Vaccine (#1) [code = Influenza Vaccine (#1)] [facility] Scheduled Test 2023-03-20 00:00:00 COVID-19 VACCINE ( season) [code = COVID-19 VACCINE ()] [facility] Scheduled Test 2023-03-20 00:00:00 Influenza Vaccine (#1) [code = Influenza Vaccine (#1)] [facility] Scheduled Test 2023-03-20 00:00:00 Influenza Vaccine (#1) [code = Influenza Vaccine (#1)] [facility] Scheduled Test 2023-03-20 00:00:00 COVID-19 VACCINE ( season) [code = COVID-19 VACCINE ()] [facility] Scheduled Test 2023-03-20 00:00:00 Influenza Vaccine (#1) [code = Influenza Vaccine (#1)] [facility] Scheduled Test 2023-03-20 00:00:00 COVID-19 VACCINE ( season) [code = COVID-19 VACCINE ( season)] [facility] Scheduled Test 2023-03-20 00:00:00 Influenza Vaccine (#1) [code = Influenza Vaccine (#1)] [facility] Scheduled Test 2023-03-20 00:00:00 COVID-19 VACCINE ( season) [code = COVID-19 VACCINE ( season)] [facility] Scheduled Test 2023-03-20 00:00:00 Influenza Vaccine (#1) [code = Influenza Vaccine (#1)] [facility] Scheduled Test 2023-03-20 00:00:00 COVID-19 VACCINE ( season) [code = COVID-19 VACCINE ( season)] [facility] Scheduled Test 2023-03-20 00:00:00 Influenza Vaccine (#1) [code = Influenza Vaccine (#1)] [facility] Scheduled Test 2023-03-20 00:00:00 COVID-19 VACCINE ( season) [code = COVID-19 VACCINE ()] [facility] Scheduled Test 2023-03-20 00:00:00 Influenza Vaccine (#1) [code = Influenza Vaccine (#1)] [facility] Scheduled Test 2023-03-20 00:00:00 COVID-19 VACCINE () [code = COVID-19 VACCINE ()] [facility] Scheduled Test 2023-03-20 00:00:00 Influenza Vaccine (#1) [code = Influenza Vaccine (#1)] [facility] Scheduled Test 2023-03-20 00:00:00 Influenza Vaccine (#1) [code = Influenza Vaccine (#1)] [facility] Scheduled Test 2023-03-20 00:00:00 COVID-19 VACCINE ( season) [code = COVID-19 VACCINE ()] [facility] Scheduled Test 2023-03-20 00:00:00 Influenza Vaccine (#1) [code = Influenza Vaccine (#1)] [facility] Scheduled Test 2023-03-20 00:00:00 COVID-19 VACCINE ( season) [code = COVID-19 VACCINE ()] [facility] Scheduled Test 2023-03-20 00:00:00 Influenza Vaccine (#1) [code = Influenza Vaccine (#1)] [facility] Scheduled Test 2023-03-20 00:00:00 COVID-19 VACCINE ( season) [code = COVID-19 VACCINE ()] [facility] Scheduled Test 2023-03-20 00:00:00 Influenza Vaccine (#1) [code = Influenza Vaccine (#1)] [facility] Scheduled Test 2023-03-20 00:00:00 COVID-19 VACCINE ( season) [code = COVID-19 VACCINE ()] [facility] Scheduled Test 2023-03-20 00:00:00 Influenza Vaccine (#1) [code = Influenza Vaccine (#1)] [facility] Scheduled Test 2023-03-20 00:00:00 Influenza Vaccine (#1) [code = Influenza Vaccine (#1)] [facility] Scheduled Test 2023-03-20 00:00:00 COVID-19 VACCINE ( season) [code = COVID-19 VACCINE ()] [facility] Scheduled Test 2023-03-20 00:00:00 Influenza Vaccine (#1) [code = Influenza Vaccine (#1)] [facility] Scheduled Test 2023-03-20 00:00:00 COVID-19 VACCINE ( season) [code = COVID-19 VACCINE ()] [facility] Scheduled Test 2023-03-20 00:00:00 Influenza Vaccine (#1) [code = Influenza Vaccine (#1)] [facility] Scheduled Test 2023-03-20 00:00:00 COVID-19 VACCINE ( season) [code = COVID-19 VACCINE ( season)] [facility] Scheduled Test 2023-03-20 00:00:00 Influenza Vaccine (#1) [code = Influenza Vaccine (#1)] [facility] Scheduled Test 2023-03-20 00:00:00 COVID-19 VACCINE ( season) [code = COVID-19 VACCINE ( season)] [facility] Scheduled Test 2023-03-20 00:00:00 Influenza Vaccine (#1) [code = Influenza Vaccine (#1)] [facility] Scheduled Test 2023-03-20 00:00:00 COVID-19 VACCINE ( season) [code = COVID-19 VACCINE ()] [facility] Scheduled Test 2023-03-20 00:00:00 Influenza Vaccine (#1) [code = Influenza Vaccine (#1)] [facility] Scheduled Test 2023-03-20 00:00:00 COVID-19 VACCINE ( season) [code = COVID-19 VACCINE ()] [facility] Scheduled Test 2023-03-20 00:00:00 Influenza Vaccine (#1) [code = Influenza Vaccine (#1)] [facility] Scheduled Test 2023-03-20 00:00:00 Influenza Vaccine (#1) [code = Influenza Vaccine (#1)] [facility] Scheduled Test 2023-03-20 00:00:00 COVID-19 VACCINE ( season) [code = COVID-19 VACCINE ()] [facility] Scheduled Test 2023-03-20 00:00:00 Influenza Vaccine (#1) [code = Influenza Vaccine (#1)] [facility] Scheduled Test 2023-03-20 00:00:00 COVID-19 VACCINE ( season) [code = COVID-19 VACCINE ( season)] [facility] Scheduled Test 2023-03-20 00:00:00 Influenza Vaccine (#1) [code = Influenza Vaccine (#1)] [facility] Scheduled Test 2023-03-20 00:00:00 COVID-19 VACCINE ( season) [code = COVID-19 VACCINE ()] [facility] Scheduled Test 2023-03-20 00:00:00 COVID-19 VACCINE ( season) [code = COVID-19 VACCINE ()] [facility] Scheduled Test 2023-03-20 00:00:00 COVID-19 VACCINE () [code = COVID-19 VACCINE ()] [facility] Scheduled Test 2023-03-20 00:00:00 COVID-19 VACCINE () [code = COVID-19 VACCINE ()] [facility]uled Test 2023-03-20 00:00:00 COVID-19 VACCINE () [code = COVID-19 VACCINE ()] [facility]uled Test 2023-03-20 00:00:00 COVID-19 VACCINE ( season) [code = COVID-19 VACCINE ()] [facility]uled Test 2023-03-20 00:00:00 Influenza Vaccine (#1) [code = Influenza Vaccine (#1)] [facility] Scheduled Test 2023-03-20 00:00:00 COVID-19 VACCINE () [code = COVID-19 VACCINE ()] [facility] Scheduled Test 2023-03-20 00:00:00 COVID-19 VACCINE () [code = COVID-19 VACCINE ()] [facility] Scheduled Test 2023-03-20 00:00:00 COVID-19 VACCINE ( season) [code = COVID-19 VACCINE ()] [facility] Scheduled Test 2023-03-20 00:00:00 COVID-19 VACCINE () [code = COVID-19 VACCINE ()] [facility] Scheduled Test 2023-03-20 00:00:00 Influenza Vaccine (#1) [code = Influenza Vaccine (#1)] [facility]uled Test 2023-03-20 00:00:00 Influenza Vaccine (#1) [code = Influenza Vaccine (#1)] [facility] Scheduled Test 2023-03-20 00:00:00 Influenza Vaccine (#1) [code = Influenza Vaccine (#1)] [facility] Scheduled Test 2023-03-20 00:00:00 Influenza Vaccine (#1) [code = Influenza Vaccine (#1)] [facility] Scheduled Test 2023-03-20 00:00:00 Influenza Vaccine (#1) [code = Influenza Vaccine (#1)] [facility] Test 2023-03-20 00:00:00 Influenza Vaccine (#1) [code = Influenza Vaccine (#1)] [facility] Test 2023-03-20 00:00:00 Influenza Vaccine (#1) [code = Influenza Vaccine (#1)] [facility]uled Test 2023-03-20 00:00:00 Influenza Vaccine (#1) [code = Influenza Vaccine (#1)] [facility] Test 2023-03-20 00:00:00 Influenza Vaccine (#1) [code = Influenza Vaccine (#1)] [facility] Test 2023-03-20 00:00:00 COVID-19 VACCINE ( season) [code = COVID-19 VACCINE ( season)] [facility] Scheduled Test 2022-07-20 00:00:00 DEPRESSION SCREENING (12+) [code = DEPRESSION SCREENING (12+)] [facility] Test 2022-07-20 00:00:00 DEPRESSION SCREENING (12+) [code = DEPRESSION SCREENING (12+)] [facility] Test 2022-07-20 00:00:00 DEPRESSION SCREENING (12+) [code = DEPRESSION SCREENING (12+)] [facility] Test 2022-07-20 00:00:00 DEPRESSION SCREENING (12+) [code = DEPRESSION SCREENING (12+)] [facility] Test 2022-07-20 00:00:00 DEPRESSION SCREENING (12+) [code = DEPRESSION SCREENING (12+)] [facility] Test 2022-07-20 00:00:00 DEPRESSION SCREENING (12+) [code = DEPRESSION SCREENING (12+)] [facility] Test 2022-07-20 00:00:00 DEPRESSION SCREENING (12+) [code = DEPRESSION SCREENING (12+)] [facility] Test 2022-07-20 00:00:00 DEPRESSION SCREENING (12+) [code = DEPRESSION SCREENING (12+)] [facility] Test 2022-07-20 00:00:00 DEPRESSION SCREENING (12+) [code = DEPRESSION SCREENING (12+)] [facility] Test 2022-07-20 00:00:00 DEPRESSION SCREENING (12+) [code = DEPRESSION SCREENING (12+)] [facility] Test 2022-07-20 00:00:00 DEPRESSION SCREENING (12+) [code = DEPRESSION SCREENING (12+)] [facility] Test 2022-07-20 00:00:00 DEPRESSION SCREENING (12+) [code = DEPRESSION SCREENING (12+)] [facility] Test 2022-07-20 00:00:00 DEPRESSION SCREENING (12+) [code = DEPRESSION SCREENING (12+)] [facility] Test 2022-07-20 00:00:00 DEPRESSION SCREENING (12+) [code = DEPRESSION SCREENING (12+)] [facility] Test 2022-07-20 00:00:00 DEPRESSION SCREENING (12+) [code = DEPRESSION SCREENING (12+)] [facility]uled Test 2022-07-20 00:00:00 DEPRESSION SCREENING (12+) [code = DEPRESSION SCREENING (12+)] [facility] Test 2022-07-20 00:00:00 DEPRESSION SCREENING (12+) [code = DEPRESSION SCREENING (12+)] [facility] Sched[facility] Test 2022-07-20 00:00:00 DEPRESSION SCREENING (12+) [code = DEPRESSION SCREENING (12+)] [facility] Scheduled Test 2022-07-20 00:00:00 DEPRESSION SCREENING (12+) [code = DEPRESSION SCREENING (12+)] [facility]uled Test 2022-07-20 00:00:00 DEPRESSION SCREENING (12+) [code = DEPRESSION SCREENING (12+)] [facility] Test 2022-07-20 00:00:00 DEPRESSION SCREENING (12+) [code = DEPRESSION SCREENING (12+)] [facility] Scheduled Test 2022-07-20 00:00:00 DEPRESSION SCREENING (12+) [code = DEPRESSION SCREENING (12+)] [facility] Sched[facility] Test 2022-07-20 00:00:00 DEPRESSION SCREENING (12+) [code = DEPRESSION SCREENING (12+)] [facility] Scheduled Test 2022-07-20 00:00:00 DEPRESSION SCREENING (12+) [code = DEPRESSION SCREENING (12+)] [facility] Sched[facility] Test 2022-07-20 00:00:00 DEPRESSION SCREENING (12+) [code = DEPRESSION SCREENING (12+)] [facility] Sched[facility] Test 2022-07-20 00:00:00 DEPRESSION SCREENING (12+) [code = DEPRESSION SCREENING (12+)] [facility] Scheduled Test 2022-07-20 00:00:00 DEPRESSION SCREENING (12+) [code = DEPRESSION SCREENING (12+)] [facility] Scheduled Test 2022-07-20 00:00:00 DEPRESSION SCREENING (12+) [code = DEPRESSION SCREENING (12+)] [facility] Test 2022-07-20 00:00:00 DEPRESSION SCREENING (12+) [code = DEPRESSION SCREENING (12+)] [facility] Test 2022-07-20 00:00:00 DEPRESSION SCREENING (12+) [code = DEPRESSION SCREENING (12+)] [facility] Future Scheduled Test 2022-07-20 00:00:00 DEPRESSION SCREENING (12+) [code = DEPRESSION SCREENING (12+)] [facility] Future Scheduled Test 2022-07-20 00:00:00 DEPRESSION SCREENING (12+) [code = DEPRESSION SCREENING (12+)] [facility] Future Scheduled Test 2022-07-20 00:00:00 DEPRESSION SCREENING (12+) [code = DEPRESSION SCREENING (12+)] [facility] Future Scheduled Test 2022-06-21 00:00:00 COVID-19 VACCINE (4 - Booster for Pfizer series) [code = COVID-19 VACCINE (4 - Booster for Pfizer series)] [facility] Future Scheduled Test 2022-06-21 00:00:00 COVID-19 VACCINE (4 - Booster for Pfizer series) [code = COVID-19 VACCINE (4 - Booster for Pfizer series)] [facility] Future Scheduled Test 2022-06-21 00:00:00 COVID-19 VACCINE (4 - Booster for Pfizer series) [code = COVID-19 VACCINE (4 - Booster for Pfizer series)] [facility] Future Scheduled Test 2022-06-21 00:00:00 COVID-19 VACCINE (4 - Booster for Pfizer series) [code = COVID-19 VACCINE (4 - Booster for Pfizer series)] [facility] Future Scheduled Test 2022-04-16 00:00:00 COVID-19 VACCINE (4 - Booster for Pfizer series) [code = COVID-19 VACCINE (4 - Booster for Pfizer series)] [facility] Future Scheduled Test 2022-04-16 00:00:00 COVID-19 VACCINE (4 - Booster for Pfizer series) [code = COVID-19 VACCINE (4 - Booster for Pfizer series)] [facility] Future Scheduled Test 2022-04-16 00:00:00 COVID-19 VACCINE (4 - Booster for Pfizer series) [code = COVID-19 VACCINE (4 - Booster for Pfizer series)] [facility] Future Scheduled Test 2022-04-16 00:00:00 COVID-19 VACCINE (4 - Booster for Pfizer series) [code = COVID-19 VACCINE (4 - Booster for Pfizer series)] [facility] Future Scheduled Test 2022-04-16 00:00:00 COVID-19 VACCINE (4 - Booster for Pfizer series) [code = COVID-19 VACCINE (4 - Booster for Pfizer series)] [facility] Future Scheduled Test 2022-04-16 00:00:00 COVID-19 VACCINE (4 - Booster for Pfizer series) [code = COVID-19 VACCINE (4 - Booster for Pfizer series)] [facility] Future Scheduled Test 2022-04-16 00:00:00 COVID-19 VACCINE (4 - Booster for Pfizer series) [code = COVID-19 VACCINE (4 - Booster for Pfizer series)] [facility] Future Scheduled Test 2022-04-16 00:00:00 COVID-19 VACCINE (4 - Booster for Pfizer series) [code = COVID-19 VACCINE (4 - Booster for Pfizer series)] [facility] Future Scheduled Test 2022-04-16 00:00:00 COVID-19 VACCINE (4 - Booster for Pfizer series) [code = COVID-19 VACCINE (4 - Booster for Pfizer series)] [facility] Future Scheduled Test 2022-04-16 00:00:00 COVID-19 VACCINE (4 - Booster for Pfizer series) [code = COVID-19 VACCINE (4 - Booster for Pfizer series)] [facility] Future Scheduled Test 2022-04-16 00:00:00 COVID-19 VACCINE (4 - Booster for Pfizer series) [code = COVID-19 VACCINE (4 - Booster for Pfizer series)] [facility] Future Scheduled Test 2022-04-16 00:00:00 COVID-19 VACCINE (4 - Booster for Pfizer series) [code = COVID-19 VACCINE (4 - Booster for Pfizer series)] [facility] Future Scheduled Test 2022-04-16 00:00:00 COVID-19 VACCINE (4 - Booster for Pfizer series) [code = COVID-19 VACCINE (4 - Booster for Pfizer series)] [facility] Future Scheduled Test 2022-04-16 00:00:00 COVID-19 VACCINE (4 - Booster for Pfizer series) [code = COVID-19 VACCINE (4 - Booster for Pfizer series)] [facility] Future Scheduled Test 2022-04-16 00:00:00 COVID-19 VACCINE (4 - Booster for Pfizer series) [code = COVID-19 VACCINE (4 - Booster for Pfizer series)] [facility] Future Scheduled Test 2022-04-16 00:00:00 COVID-19 VACCINE (4 - Booster for Pfizer series) [code = COVID-19 VACCINE (4 - Booster for Pfizer series)] [facility] Future Scheduled Test 2022-04-16 00:00:00 COVID-19 VACCINE (4 - Booster for Pfizer series) [code = COVID-19 VACCINE (4 - Booster for Pfizer series)] [facility] Future Scheduled Test 2022-04-16 00:00:00 COVID-19 VACCINE (4 - Booster for Pfizer series) [code = COVID-19 VACCINE (4 - Booster for Pfizer series)] [facility] Future Scheduled Test 2022-04-16 00:00:00 COVID-19 VACCINE (4 - Booster for Pfizer series) [code = COVID-19 VACCINE (4 - Booster for Pfizer series)] [facility] Future Scheduled Test 2022-04-16 00:00:00 COVID-19 VACCINE (4 - Booster for Pfizer series) [code = COVID-19 VACCINE (4 - Booster for Pfizer series)] [facility] Scheduled Test 2022-04-16 00:00:00 COVID-19 VACCINE (4 - Pfizer series) [code = COVID-19 VACCINE (4 - Pfizer series)] [facility] Scheduled Test 2022-04-16 00:00:00 COVID-19 VACCINE (4 - Pfizer series) [code = COVID-19 VACCINE (4 - Pfizer series)] [facility] Future Scheduled Test 2022-04-16 00:00:00 COVID-19 VACCINE (4 - Pfizer series) [code = COVID-19 VACCINE (4 - Pfizer series)] [facility] Scheduled Test 2022-04-16 00:00:00 COVID-19 VACCINE (4 - Pfizer series) [code = COVID-19 VACCINE (4 - Pfizer series)] [facility] Future Scheduled Test 2022-04-16 00:00:00 COVID-19 VACCINE (4 - Booster for Pfizer series) [code = COVID-19 VACCINE (4 - Booster for Pfizer series)] [facility] Future Scheduled Test 2022-04-16 00:00:00 COVID-19 VACCINE (4 - Pfizer series) [code = COVID-19 VACCINE (4 - Pfizer series)] [facility] Future Scheduled Test 2022-03-20 00:00:00 INFLUENZA VACCINE (#1) [code = INFLUENZA VACCINE (#1)] [facility] Future Scheduled Test 2022-03-20 00:00:00 INFLUENZA VACCINE (#1) [code = INFLUENZA VACCINE (#1)] [facility] Future Scheduled Test 2022-03-20 00:00:00 INFLUENZA VACCINE (#1) [code = INFLUENZA VACCINE (#1)] [facility] Future Scheduled Test 2022-03-20 00:00:00 INFLUENZA VACCINE (#1) [code = INFLUENZA VACCINE (#1)] [facility] Future Scheduled Test 2022-01-14 00:00:00 SHINGLES VACCINES (1 of 2) [code = SHINGLES VACCINES (1 of 2)] [facility] Future Scheduled Test 2022-01-14 00:00:00 SHINGLES VACCINES (1 of 2) [code = SHINGLES VACCINES (1 of 2)] [facility] Future Scheduled Test 2022-01-14 00:00:00 SHINGLES VACCINES (1 of 2) [code = SHINGLES VACCINES (1 of 2)] [facility] Future Scheduled Test 2022-01-14 00:00:00 SHINGLES VACCINES (1 of 2) [code = SHINGLES VACCINES (1 of 2)] [facility] Future Scheduled Test 2022-01-14 00:00:00 SHINGLES VACCINES (1 of 2) [code = SHINGLES VACCINES (1 of 2)] [facility] Future Scheduled Test 2022-01-14 00:00:00 SHINGLES VACCINES (1 of 2) [code = SHINGLES VACCINES (1 of 2)] [facility] Future Scheduled Test 2022-01-14 00:00:00 SHINGLES VACCINES (1 of 2) [code = SHINGLES VACCINES (1 of 2)] [facility] Future Scheduled Test 2022-01-14 00:00:00 SHINGLES VACCINES (1 of 2) [code = SHINGLES VACCINES (1 of 2)] [facility] Future Scheduled Test 2022-01-14 00:00:00 SHINGLES VACCINES (1 of 2) [code = SHINGLES VACCINES (1 of 2)] [facility] Future Scheduled Test 2022-01-14 00:00:00 SHINGLES VACCINES (1 of 2) [code = SHINGLES VACCINES (1 of 2)] [facility] Future Scheduled Test 2022-01-14 00:00:00 SHINGLES VACCINES (1 of 2) [code = SHINGLES VACCINES (1 of 2)] [facility] Future Scheduled Test 2022-01-14 00:00:00 SHINGLES VACCINES (1 of 2) [code = SHINGLES VACCINES (1 of 2)] [facility] Future Scheduled Test 2022-01-14 00:00:00 SHINGLES VACCINES (1 of 2) [code = SHINGLES VACCINES (1 of 2)] [facility] Future Scheduled Test 2022-01-14 00:00:00 SHINGLES VACCINES (1 of 2) [code = SHINGLES VACCINES (1 of 2)] [facility] Future Scheduled Test 2022-01-14 00:00:00 SHINGLES VACCINES (1 of 2) [code = SHINGLES VACCINES (1 of 2)] [facility] Future Scheduled Test 2022-01-14 00:00:00 Screening for malignant neoplasm of lung (procedure) [code = [id number]] [facility] Future Scheduled Test 2022-01-14 00:00:00 SHINGLES VACCINES (1 of 2) [code = SHINGLES VACCINES (1 of 2)] [facility] Future Scheduled Test 2022-01-14 00:00:00 Screening for malignant neoplasm of lung (procedure) [code = [id number]] [facility] Future Scheduled Test 2022-01-14 00:00:00 SHINGLES VACCINES (1 of 2) [code = SHINGLES VACCINES (1 of 2)] [facility] Future Scheduled Test 2022-01-14 00:00:00 Screening for malignant neoplasm of lung (procedure) [code = [id number]] [facility] Future Scheduled Test 2022-01-14 00:00:00 SHINGLES VACCINES (1 of 2) [code = SHINGLES VACCINES (1 of 2)] [facility] Future Scheduled Test 2022-01-14 00:00:00 Screening for malignant neoplasm of lung (procedure) [code = [id number]] [facility] Future Scheduled Test 2022-01-14 00:00:00 SHINGLES VACCINES (1 of 2) [code = SHINGLES VACCINES (1 of 2)] [facility] Future Scheduled Test 2022-01-14 00:00:00 Screening for malignant neoplasm of lung (procedure) [code = [id number]] [facility] Future Scheduled Test 2022-01-14 00:00:00 SHINGLES VACCINES (1 of 2) [code = SHINGLES VACCINES (1 of 2)] [facility] Future Scheduled Test 2022-01-14 00:00:00 Screening for malignant neoplasm of lung (procedure) [code = [id number]] [facility] Future Scheduled Test 2022-01-14 00:00:00 SHINGLES VACCINES (1 of 2) [code = SHINGLES VACCINES (1 of 2)] [facility] Future Scheduled Test 2022-01-14 00:00:00 Screening for malignant neoplasm of lung (procedure) [code = 360561594] [facility] Future Scheduled Test 2022-01-14 00:00:00 SHINGLES VACCINES (1 of 2) [code = SHINGLES VACCINES (1 of 2)] [facility] Future Scheduled Test 2022-01-14 00:00:00 Screening for malignant neoplasm of lung (procedure) [code = 470977244] [facility] Future Scheduled Test 2022-01-14 00:00:00 SHINGLES VACCINES (1 of 2) [code = SHINGLES VACCINES (1 of 2)] [facility] Future Scheduled Test 2022-01-14 00:00:00 Screening for malignant neoplasm of lung (procedure) [code = [id number]] [facility] Future Scheduled Test 2022-01-14 00:00:00 SHINGLES VACCINES (1 of 2) [code = SHINGLES VACCINES (1 of 2)] [facility] Future Scheduled Test 2022-01-14 00:00:00 Screening for malignant neoplasm of lung (procedure) [code = [id number]] [facility] Future Scheduled Test 2022-01-14 00:00:00 SHINGLES VACCINES (1 of 2) [code = SHINGLES VACCINES (1 of 2)] [facility] Future Scheduled Test 2022-01-14 00:00:00 Screening for malignant neoplasm of lung (procedure) [code = 916689529] [facility] Future Scheduled Test 2022-01-14 00:00:00 SHINGLES VACCINES (1 of 2) [code = SHINGLES VACCINES (1 of 2)] [facility] Future Scheduled Test 2022-01-14 00:00:00 Screening for malignant neoplasm of lung (procedure) [code = 381706656] [facility] Future Scheduled Test 2022-01-14 00:00:00 SHINGLES VACCINES (1 of 2) [code = SHINGLES VACCINES (1 of 2)] [facility] Future Scheduled Test 2022-01-14 00:00:00 Screening for malignant neoplasm of lung (procedure) [code = 877384463] [facility] Future Scheduled Test 2022-01-14 00:00:00 SHINGLES VACCINES (1 of 2) [code = SHINGLES VACCINES (1 of 2)] [facility] Future Scheduled Test 2022-01-14 00:00:00 Screening for malignant neoplasm of lung (procedure) [code = 471485635] [facility] Future Scheduled Test 2022-01-14 00:00:00 SHINGLES VACCINES (1 of 2) [code = SHINGLES VACCINES (1 of 2)] [facility] Future Scheduled Test 2022-01-14 00:00:00 Screening for malignant neoplasm of lung (procedure) [code = 239758866] [facility] Future Scheduled Test 2022-01-14 00:00:00 SHINGLES VACCINES (1 of 2) [code = SHINGLES VACCINES (1 of 2)] [facility] Future Scheduled Test 2022-01-14 00:00:00 Screening for malignant neoplasm of lung (procedure) [code = 581367720] [facility] Future Scheduled Test 2022-01-14 00:00:00 SHINGLES VACCINES (1 of 2) [code = SHINGLES VACCINES (1 of 2)] [facility] Future Scheduled Test 2022-01-14 00:00:00 Screening for malignant neoplasm of lung (procedure) [code = 926705493] [facility] Future Scheduled Test 2022-01-14 00:00:00 SHINGLES VACCINES (1 of 2) [code = SHINGLES VACCINES (1 of 2)] [facility] Future Scheduled Test 2022-01-14 00:00:00 Screening for malignant neoplasm of lung (procedure) [code = 845722528] [facility] Future Scheduled Test 2022-01-14 00:00:00 SHINGLES VACCINES (1 of 2) [code = SHINGLES VACCINES (1 of 2)] [facility] Future Scheduled Test 2022-01-14 00:00:00 Screening for malignant neoplasm of lung (procedure) [code = 683275609] [facility] Future Scheduled Test 2022-01-14 00:00:00 Screening for malignant neoplasm of lung (procedure) [code = 821179399] [facility] Future Scheduled Test 2022-01-14 00:00:00 SHINGLES VACCINES (1 of 2) [code = SHINGLES VACCINES (1 of 2)] [facility] Future Scheduled Test 2022-01-14 00:00:00 SHINGLES VACCINES (1 of 2) [code = SHINGLES VACCINES (1 of 2)] [facility] Future Scheduled Test 2022-01-14 00:00:00 Screening for malignant neoplasm of lung (procedure) [code = 471122105] [facility] Future Scheduled Test 2022-01-14 00:00:00 SHINGLES VACCINES (1 of 2) [code = SHINGLES VACCINES (1 of 2)] [facility] Future Scheduled Test 2022-01-14 00:00:00 Screening for malignant neoplasm of lung (procedure) [code = 683562160] [facility] Future Scheduled Test 2022-01-14 00:00:00 SHINGLES VACCINES (1 of 2) [code = SHINGLES VACCINES (1 of 2)] [facility] Future Scheduled Test 2022-01-14 00:00:00 Screening for malignant neoplasm of lung (procedure) [code = 007323466] [facility] Future Scheduled Test 2022-01-14 00:00:00 SHINGLES VACCINES (1 of 2) [code = SHINGLES VACCINES (1 of 2)] [facility] Future Scheduled Test 2022-01-14 00:00:00 Screening for malignant neoplasm of lung (procedure) [code = 956831586] [facility] Future Scheduled Test 2022-01-14 00:00:00 Screening for malignant neoplasm of lung (procedure) [code = 702185180] [facility] Future Scheduled Test 2022-01-14 00:00:00 SHINGLES VACCINES (1 of 2) [code = SHINGLES VACCINES (1 of 2)] [facility] Future Scheduled Test 2022-01-14 00:00:00 SHINGLES VACCINES (1 of 2) [code = SHINGLES VACCINES (1 of 2)] [facility] Future Scheduled Test 2022-01-14 00:00:00 Screening for malignant neoplasm of lung (procedure) [code = 241572340] [facility] Future Scheduled Test 2022-01-14 00:00:00 SHINGLES VACCINES (1 of 2) [code = SHINGLES VACCINES (1 of 2)] [facility] Future Scheduled Test 2022-01-14 00:00:00 Screening for malignant neoplasm of lung (procedure) [code = 552868221] [facility] Future Scheduled Test 2022-01-14 00:00:00 SHINGLES VACCINES (1 of 2) [code = SHINGLES VACCINES (1 of 2)] [facility] Future Scheduled Test 2022-01-14 00:00:00 Screening for malignant neoplasm of lung (procedure) [code = 307715781] [facility] Future Scheduled Test 2022-01-14 00:00:00 SHINGLES VACCINES (1 of 2) [code = SHINGLES VACCINES (1 of 2)] [facility] Future Scheduled Test 2022-01-14 00:00:00 Screening for malignant neoplasm of lung (procedure) [code = 287245536] [facility] Future Scheduled Test 2022-01-14 00:00:00 SHINGLES VACCINES (1 of 2) [code = SHINGLES VACCINES (1 of 2)] [facility] Future Scheduled Test 2022-01-14 00:00:00 Screening for malignant neoplasm of lung (procedure) [code = 236916663] [facility] Future Scheduled Test 2022-01-14 00:00:00 SHINGLES VACCINES (1 of 2) [code = SHINGLES VACCINES (1 of 2)] [facility] Future Scheduled Test 2022-01-14 00:00:00 Screening for malignant neoplasm of lung (procedure) [code = 785594826] [facility] Future Scheduled Test 2022-01-14 00:00:00 Screening for malignant neoplasm of lung (procedure) [code = 503078632] [facility] Future Scheduled Test 2022-01-14 00:00:00 SHINGLES VACCINES (1 of 2) [code = SHINGLES VACCINES (1 of 2)] [facility] Future Scheduled Test 2022-01-14 00:00:00 SHINGLES VACCINES (1 of 2) [code = SHINGLES VACCINES (1 of 2)] [facility] Future Scheduled Test 2022-01-14 00:00:00 Screening for malignant neoplasm of lung (procedure) [code = 943595795] [facility] Future Scheduled Test 2022-01-14 00:00:00 SHINGLES VACCINES (1 of 2) [code = SHINGLES VACCINES (1 of 2)] [facility] Future Scheduled Test 2022-01-14 00:00:00 Screening for malignant neoplasm of lung (procedure) [code = 004718541] [facility] Future Scheduled Test 2022-01-14 00:00:00 SHINGLES VACCINES (1 of 2) [code = SHINGLES VACCINES (1 of 2)] [facility] Future Scheduled Test 2022-01-14 00:00:00 Screening for malignant neoplasm of lung (procedure) [code = 811306376] [facility] Scheduled Test 2022-01-14 00:00:00 SHINGLES VACCINES (1 of 2) [code = SHINGLES VACCINES (1 of 2)] [facility] Future Scheduled Test 2022-01-14 00:00:00 Screening for malignant neoplasm of lung (procedure) [code = 219570752] [facility] Future Scheduled Test 2022-01-14 00:00:00 SHINGLES VACCINES (1 of 2) [code = SHINGLES VACCINES (1 of 2)] [facility] Future Scheduled Test 2022-01-14 00:00:00 Screening for malignant neoplasm of lung (procedure) [code = 501236773] [facility] Future Scheduled Test 2022-01-14 00:00:00 SHINGLES VACCINES (1 of 2) [code = SHINGLES VACCINES (1 of 2)] [facility] Future Scheduled Test 2022-01-14 00:00:00 Screening for malignant neoplasm of lung (procedure) [code = 715229081] [facility] Scheduled Test 2022-01-14 00:00:00 SHINGLES VACCINES (1 of 2) [code = SHINGLES VACCINES (1 of 2)] [facility] Future Scheduled Test 2022-01-14 00:00:00 Screening for malignant neoplasm of lung (procedure) [code = 613532077] [facility] Future Scheduled Test 2022-01-14 00:00:00 SHINGLES VACCINES (1 of 2) [code = SHINGLES VACCINES (1 of 2)] [facility] Future Scheduled Test 2022-01-14 00:00:00 Screening for malignant neoplasm of lung (procedure) [code = 255645166] [facility] Future Scheduled Test 2022-01-14 00:00:00 SHINGLES VACCINES (1 of 2) [code = SHINGLES VACCINES (1 of 2)] [facility] Scheduled Test 2022-01-14 00:00:00 Screening for malignant neoplasm of lung (procedure) [code = 434758530] [facility] Scheduled Test 2022-01-14 00:00:00 SHINGLES VACCINES (1 of 2) [code = SHINGLES VACCINES (1 of 2)] [facility] Future Scheduled Test 2022-01-14 00:00:00 Screening for malignant neoplasm of lung (procedure) [code = 119201214] [facility] Future Scheduled Test 2022-01-14 00:00:00 SHINGLES VACCINES (1 of 2) [code = SHINGLES VACCINES (1 of 2)] [facility] Future Scheduled Test 2022-01-14 00:00:00 Screening for malignant neoplasm of lung (procedure) [code = 735696020] [facility] Scheduled Test 2022-01-14 00:00:00 SHINGLES VACCINES (1 of 2) [code = SHINGLES VACCINES (1 of 2)] [facility] Scheduled Test 2022-01-14 00:00:00 Screening for malignant neoplasm of lung (procedure) [code = 146193042] [facility] Scheduled Test 2022-01-14 00:00:00 SHINGLES VACCINES (1 of 2) [code = SHINGLES VACCINES (1 of 2)] [facility] Future Scheduled Test 2022-01-14 00:00:00 Screening for malignant neoplasm of lung (procedure) [code = 489270838] [facility] Scheduled Test 2022-01-14 00:00:00 SHINGLES VACCINES (1 of 2) [code = SHINGLES VACCINES (1 of 2)] [facility] Future Scheduled Test 2022-01-14 00:00:00 Screening for malignant neoplasm of lung (procedure) [code = 622549237] [facility] Future Scheduled Test 2022-01-14 00:00:00 SHINGLES VACCINES (1 of 2) [code = SHINGLES VACCINES (1 of 2)] [facility] Future Scheduled Test 2022-01-14 00:00:00 SHINGLES VACCINES (1 of 2) [code = SHINGLES VACCINES (1 of 2)] [facility] Scheduled Test 2022-01-14 00:00:00 SHINGLES VACCINES (1 of 2) [code = SHINGLES VACCINES (1 of 2)] [facility] Future Scheduled Test 2022-01-14 00:00:00 Screening for malignant neoplasm of lung (procedure) [code = 200079846] [facility] Scheduled Test 2022-01-14 00:00:00 SHINGLES VACCINES (1 of 2) [code = SHINGLES VACCINES (1 of 2)] [facility] Scheduled Test 2022-01-14 00:00:00 Screening for malignant neoplasm of lung (procedure) [code = 871844337] [facility] Scheduled Test 2022-01-14 00:00:00 SHINGLES VACCINES (1 of 2) [code = SHINGLES VACCINES (1 of 2)] [facility] Future Scheduled Test 2022-01-14 00:00:00 Screening for malignant neoplasm of lung (procedure) [code = 024778199] [facility] Scheduled Test 2022-01-14 00:00:00 SHINGLES VACCINES (1 of 2) [code = SHINGLES VACCINES (1 of 2)] [facility] Future Scheduled Test 2022-01-14 00:00:00 Screening for malignant neoplasm of lung (procedure) [code = 643959750] [facility] Future Scheduled Test 2022-01-14 00:00:00 SHINGLES VACCINES (1 of 2) [code = SHINGLES VACCINES (1 of 2)] [facility] Future Scheduled Test 2022-01-14 00:00:00 Screening for malignant neoplasm of lung (procedure) [code = 909925630] [facility] Future Scheduled Test 2022-01-14 00:00:00 SHINGLES VACCINES (1 of 2) [code = SHINGLES VACCINES (1 of 2)] [facility] Future Scheduled Test 2022-01-14 00:00:00 Screening for malignant neoplasm of lung (procedure) [code = 511908331] [facility] Future Scheduled Test 2022-01-14 00:00:00 SHINGLES VACCINES (1 of 2) [code = SHINGLES VACCINES (1 of 2)] [facility] Future Scheduled Test 2022-01-14 00:00:00 Screening for malignant neoplasm of lung (procedure) [code = 200212841] [facility] Future Scheduled Test 2022-01-14 00:00:00 SHINGLES VACCINES (1 of 2) [code = SHINGLES VACCINES (1 of 2)] [facility] Future Scheduled Test 2013-12-15 00:00:00 PNEUMOCOCCAL VACCINE 0-64 YRS (2 - PCV) [code = PNEUMOCOCCAL VACCINE 0-64 YRS (2 - PCV)] [facility] Future Scheduled Test 2013-12-15 00:00:00 PNEUMOCOCCAL VACCINE 0-64 YRS (2 - PCV) [code = PNEUMOCOCCAL VACCINE 0-64 YRS (2 - PCV)] [facility] Future Scheduled Test 2013-12-15 00:00:00 PNEUMOCOCCAL VACCINE 0-64 YRS (2 - PCV) [code = PNEUMOCOCCAL VACCINE 0-64 YRS (2 - PCV)] [facility] Future Scheduled Test 2013-12-15 00:00:00 PNEUMOCOCCAL VACCINE 0-64 YRS (2 - PCV) [code = PNEUMOCOCCAL VACCINE 0-64 YRS (2 - PCV)] [facility] Future Scheduled Test 2013-12-15 00:00:00 Pneumococcal Vaccine: 0-64 Years (2 - PCV) [code = Pneumococcal Vaccine: 0-64 Years (2 - PCV)] [facility] Future Scheduled Test 2013-12-15 00:00:00 Pneumococcal Vaccine: 0-64 Years (2 - PCV) [code = Pneumococcal Vaccine: 0-64 Years (2 - PCV)] [facility] Future Scheduled Test 2013-12-15 00:00:00 Pneumococcal Vaccine: 0-64 Years (2 - PCV) [code = Pneumococcal Vaccine: 0-64 Years (2 - PCV)] [facility] Future Scheduled Test 2013-12-15 00:00:00 Pneumococcal Vaccine: 0-64 Years (2 - PCV) [code = Pneumococcal Vaccine: 0-64 Years (2 - PCV)] [facility] Future Scheduled Test 2013-12-15 00:00:00 Pneumococcal Vaccine: 0-64 Years (2 - PCV) [code = Pneumococcal Vaccine: 0-64 Years (2 - PCV)] [facility] Future Scheduled Test 2013-12-15 00:00:00 Pneumococcal Vaccine: 0-64 Years (2 - PCV) [code = Pneumococcal Vaccine: 0-64 Years (2 - PCV)] [facility] Future Scheduled Test 2013-12-15 00:00:00 Pneumococcal Vaccine: 0-64 Years (2 - PCV) [code = Pneumococcal Vaccine: 0-64 Years (2 - PCV)] [facility] Future Scheduled Test 2013-12-15 00:00:00 Pneumococcal Vaccine: 0-64 Years (2 - PCV) [code = Pneumococcal Vaccine: 0-64 Years (2 - PCV)] [facility] Future Scheduled Test 2013-12-15 00:00:00 Pneumococcal Vaccine: 0-64 Years (2 - PCV) [code = Pneumococcal Vaccine: 0-64 Years (2 - PCV)] [facility] Future Scheduled Test 2013-12-15 00:00:00 Pneumococcal Vaccine: 0-64 Years (2 - PCV) [code = Pneumococcal Vaccine: 0-64 Years (2 - PCV)] [facility] Future Scheduled Test 2013-12-15 00:00:00 Pneumococcal Vaccine: 0-64 Years (2 - PCV) [code = Pneumococcal Vaccine: 0-64 Years (2 - PCV)] [facility] Future Scheduled Test 2013-12-15 00:00:00 Pneumococcal Vaccine: 0-64 Years (2 - PCV) [code = Pneumococcal Vaccine: 0-64 Years (2 - PCV)] [facility] Future Scheduled Test 2013-12-15 00:00:00 Pneumococcal Vaccine: 0-64 Years (2 - PCV) [code = Pneumococcal Vaccine: 0-64 Years (2 - PCV)] [facility] Future Scheduled Test 2013-12-15 00:00:00 Pneumococcal Vaccine: 0-64 Years (2 - PCV) [code = Pneumococcal Vaccine: 0-64 Years (2 - PCV)] [facility] Future Scheduled Test 2013-12-15 00:00:00 Pneumococcal Vaccine: 0-64 Years (2 - PCV) [code = Pneumococcal Vaccine: 0-64 Years (2 - PCV)] [facility] Future Scheduled Test 2013-12-15 00:00:00 Pneumococcal Vaccine: 0-64 Years (2 - PCV) [code = Pneumococcal Vaccine: 0-64 Years (2 - PCV)] [facility] Future Scheduled Test 2013-12-15 00:00:00 Pneumococcal Vaccine: 0-64 Years (2 - PCV) [code = Pneumococcal Vaccine: 0-64 Years (2 - PCV)] [facility] Future Scheduled Test 2013-12-15 00:00:00 Pneumococcal Vaccine: 0-64 Years (2 - PCV) [code = Pneumococcal Vaccine: 0-64 Years (2 - PCV)] [facility] Future Scheduled Test 2013-12-15 00:00:00 Pneumococcal Vaccine: 0-64 Years (2 - PCV) [code = Pneumococcal Vaccine: 0-64 Years (2 - PCV)] [facility] Future Scheduled Test 2013-12-15 00:00:00 Pneumococcal Vaccine: 0-64 Years (2 - PCV) [code = Pneumococcal Vaccine: 0-64 Years (2 - PCV)] [facility] Future Scheduled Test 2013-12-15 00:00:00 Pneumococcal Vaccine: 0-64 Years (2 of 2 - PCV) [code = Pneumococcal Vaccine: 0-64 Years (2 of 2 - PCV)] [facility] Future Scheduled Test 2013-12-15 00:00:00 Pneumococcal Vaccine: 0-64 Years (2 of 2 - PCV) [code = Pneumococcal Vaccine: 0-64 Years (2 of 2 - PCV)] [facility] Future Scheduled Test 2013-12-15 00:00:00 Pneumococcal Vaccine: 0-64 Years (2 of 2 - PCV) [code = Pneumococcal Vaccine: 0-64 Years (2 of 2 - PCV)] [facility] Future Scheduled Test 2013-12-15 00:00:00 Pneumococcal Vaccine: 0-64 Years (2 of 2 - PCV) [code = Pneumococcal Vaccine: 0-64 Years (2 of 2 - PCV)] [facility] Future Scheduled Test 2013-12-15 00:00:00 Pneumococcal Vaccine: 0-64 Years (2 of 2 - PCV) [code = Pneumococcal Vaccine: 0-64 Years (2 of 2 - PCV)] [facility] Future Scheduled Test 2013-12-15 00:00:00 Pneumococcal Vaccine: 0-64 Years (2 of 2 - PCV) [code = Pneumococcal Vaccine: 0-64 Years (2 of 2 - PCV)] [facility] Future Scheduled Test 2013-12-15 00:00:00 Pneumococcal Vaccine: 0-64 Years (2 of 2 - PCV) [code = Pneumococcal Vaccine: 0-64 Years (2 of 2 - PCV)] [facility] Future Scheduled Test 2013-12-15 00:00:00 Pneumococcal Vaccine: 0-64 Years (2 of 2 - PCV) [code = Pneumococcal Vaccine: 0-64 Years (2 of 2 - PCV)] [facility] Future Scheduled Test 2013-12-15 00:00:00 Pneumococcal Vaccine: 0-64 Years (2 of 2 - PCV) [code = Pneumococcal Vaccine: 0-64 Years (2 of 2 - PCV)] [facility] Future Scheduled Test 2013-12-15 00:00:00 Pneumococcal Vaccine: 0-64 Years (2 of 2 - PCV) [code = Pneumococcal Vaccine: 0-64 Years (2 of 2 - PCV)] [facility] Future Scheduled Test 2013-12-15 00:00:00 Pneumococcal Vaccine: 0-64 Years (2 of 2 - PCV) [code = Pneumococcal Vaccine: 0-64 Years (2 of 2 - PCV)] [facility] Future Scheduled Test 2013-12-15 00:00:00 Pneumococcal Vaccine: 0-64 Years (2 of 2 - PCV) [code = Pneumococcal Vaccine: 0-64 Years (2 of 2 - PCV)] [facility] Future Scheduled Test 2013-12-15 00:00:00 Pneumococcal Vaccine: 0-64 Years (2 of 2 - PCV) [code = Pneumococcal Vaccine: 0-64 Years (2 of 2 - PCV)] [facility] Future Scheduled Test 2013-12-15 00:00:00 Pneumococcal Vaccine: 0-64 Years (2 of 2 - PCV) [code = Pneumococcal Vaccine: 0-64 Years (2 of 2 - PCV)] [facility] Future Scheduled Test 2013-12-15 00:00:00 Pneumococcal Vaccine: 0-64 Years (2 of 2 - PCV) [code = Pneumococcal Vaccine: 0-64 Years (2 of 2 - PCV)] [facility] Future Scheduled Test 2013-12-15 00:00:00 Pneumococcal Vaccine: 0-64 Years (2 of 2 - PCV) [code = Pneumococcal Vaccine: 0-64 Years (2 of 2 - PCV)] [facility] Future Scheduled Test 2013-12-15 00:00:00 Pneumococcal Vaccine: 0-64 Years (2 of 2 - PCV) [code = Pneumococcal Vaccine: 0-64 Years (2 of 2 - PCV)] [facility] Future Scheduled Test 2013-12-15 00:00:00 Pneumococcal Vaccine: 0-64 Years (2 of 2 - PCV) [code = Pneumococcal Vaccine: 0-64 Years (2 of 2 - PCV)] [facility] Future Scheduled Test 2013-12-15 00:00:00 Pneumococcal Vaccine: 0-64 Years (2 of 2 - PCV) [code = Pneumococcal Vaccine: 0-64 Years (2 of 2 - PCV)] [facility] Future Scheduled Test 2013-12-15 00:00:00 Pneumococcal Vaccine: 0-64 Years (2 - PCV) [code = Pneumococcal Vaccine: 0-64 Years (2 - PCV)] [facility] Future Scheduled Test 2013-12-15 00:00:00 Pneumococcal Vaccine: 0-64 Years (2 - PCV) [code = Pneumococcal Vaccine: 0-64 Years (2 - PCV)] [facility] Future Scheduled Test 2013-12-15 00:00:00 Pneumococcal Vaccine: 0-64 Years (2 - PCV) [code = Pneumococcal Vaccine: 0-64 Years (2 - PCV)] [facility] Future Scheduled Test 1993-01-14 00:00:00 Screening for malignant neoplasm of cervix (procedure) [code = [id number]] [facility] Future Scheduled Test 1993-01-14 00:00:00 Screening for malignant neoplasm of cervix (procedure) [code = [id number]] [facility] Future Scheduled Test 1993-01-14 00:00:00 Screening for malignant neoplasm of cervix (procedure) [code = [id number]] [facility] Future Scheduled Test 1993-01-14 00:00:00 Screening for malignant neoplasm of cervix (procedure) [code = [id number]] [facility] Future Scheduled Test 1993-01-14 00:00:00 Screening for malignant neoplasm of cervix (procedure) [code = [id number]] [facility] Future Scheduled Test 1993-01-14 00:00:00 Screening for malignant neoplasm of cervix (procedure) [code = [id number]] [facility] Future Scheduled Test 1993-01-14 00:00:00 Screening for malignant neoplasm of cervix (procedure) [code = [id number]] [facility] Future Scheduled Test 1993-01-14 00:00:00 Screening for malignant neoplasm of cervix (procedure) [code = [id number]] [facility] Future Scheduled Test 1993-01-14 00:00:00 Screening for malignant neoplasm of cervix (procedure) [code = [id number]] [facility] Future Scheduled Test 1993-01-14 00:00:00 Screening for malignant neoplasm of cervix (procedure) [code = [id number]] [facility] Future Scheduled Test 1993-01-14 00:00:00 Screening for malignant neoplasm of cervix (procedure) [code = [id number]] [facility] Future Scheduled Test 1993-01-14 00:00:00 Screening for malignant neoplasm of cervix (procedure) [code = [id number]] [facility] Future Scheduled Test 1993-01-14 00:00:00 Screening for malignant neoplasm of cervix (procedure) [code = [id number]] [facility] Future Scheduled Test 1993-01-14 00:00:00 Screening for malignant neoplasm of cervix (procedure) [code = [id number]] [facility] Future Scheduled Test 1993-01-14 00:00:00 Screening for malignant neoplasm of cervix (procedure) [code = [id number]] [facility] Future Scheduled Test 1993-01-14 00:00:00 Screening for malignant neoplasm of cervix (procedure) [code = [id number]] [facility] Future Scheduled Test 1993-01-14 00:00:00 Screening for malignant neoplasm of cervix (procedure) [code = [id number]] [facility] Future Scheduled Test 1993-01-14 00:00:00 Screening for malignant neoplasm of cervix (procedure) [code = [id number]] [facility] Future Scheduled Test 1993-01-14 00:00:00 Screening for malignant neoplasm of cervix (procedure) [code = [id number]] [facility] Future Scheduled Test 1993-01-14 00:00:00 Screening for malignant neoplasm of cervix (procedure) [code = [id number]] [facility] Future Scheduled Test 1993-01-14 00:00:00 Screening for malignant neoplasm of cervix (procedure) [code = [id number]] [facility] Future Scheduled Test 1993-01-14 00:00:00 Screening for malignant neoplasm of cervix (procedure) [code = [id number]] [facility] Future Scheduled Test 1993-01-14 00:00:00 Screening for malignant neoplasm of cervix (procedure) [code = [id number]] [facility] Future Scheduled Test 1993-01-14 00:00:00 Screening for malignant neoplasm of cervix (procedure) [code = [id number]] [facility] Future Scheduled Test 1993-01-14 00:00:00 Screening for malignant neoplasm of cervix (procedure) [code = [id number]] [facility] Future Scheduled Test 1993-01-14 00:00:00 Screening for malignant neoplasm of cervix (procedure) [code = [id number]] [facility] Future Scheduled Test 1993-01-14 00:00:00 Screening for malignant neoplasm of cervix (procedure) [code = [id number]] [facility] Future Scheduled Test 1993-01-14 00:00:00 Screening for malignant neoplasm of cervix (procedure) [code = [id number]] [facility] Future Scheduled Test 1993-01-14 00:00:00 Screening for malignant neoplasm of cervix (procedure) [code = 544898769] [facility] Future Scheduled Test 1993-01-14 00:00:00 Screening for malignant neoplasm of cervix (procedure) [code = [id number]] [facility] Future Scheduled Test 1993-01-14 00:00:00 Screening for malignant neoplasm of cervix (procedure) [code = [id number]] [facility] Future Scheduled Test 1993-01-14 00:00:00 Screening for malignant neoplasm of cervix (procedure) [code = [id number]] [facility] Future Scheduled Test 1993-01-14 00:00:00 Screening for malignant neoplasm of cervix (procedure) [code = [id number]] [facility] Future Scheduled Test 1993-01-14 00:00:00 Screening for malignant neoplasm of cervix (procedure) [code = [id number]] [facility] Future Scheduled Test 1993-01-14 00:00:00 Screening for malignant neoplasm of cervix (procedure) [code = [id number]] [facility] Future Scheduled Test 1993-01-14 00:00:00 Screening for malignant neoplasm of cervix (procedure) [code = [id number]] [facility] Future Scheduled Test 1993-01-14 00:00:00 Screening for malignant neoplasm of cervix (procedure) [code = [id number]] [facility] Future Scheduled Test 1993-01-14 00:00:00 Screening for malignant neoplasm of cervix (procedure) [code = [id number]] [facility] Future Scheduled Test 1993-01-14 00:00:00 Screening for malignant neoplasm of cervix (procedure) [code = 922388068] [facility] Future Scheduled Test 1993-01-14 00:00:00 Screening for malignant neoplasm of cervix (procedure) [code = [id number]] [facility] Future Scheduled Test 1993-01-14 00:00:00 Screening for malignant neoplasm of cervix (procedure) [code = [id number]] [facility] Future Scheduled Test 1993-01-14 00:00:00 Screening for malignant neoplasm of cervix (procedure) [code = [id number]] [facility] Future Scheduled Test 1993-01-14 00:00:00 Screening for malignant neoplasm of cervix (procedure) [code = [id number]] [facility] Future Scheduled Test 1993-01-14 00:00:00 Screening for malignant neoplasm of cervix (procedure) [code = [id number]] [facility] Future Scheduled Test 1993-01-14 00:00:00 Screening for malignant neoplasm of cervix (procedure) [code = [id number]] [facility] Future Scheduled Test 1993-01-14 00:00:00 Screening for malignant neoplasm of cervix (procedure) [code = 787743963] [facility] Future Scheduled Test 1993-01-14 00:00:00 Screening for malignant neoplasm of cervix (procedure) [code = [id number]] [facility] Future Scheduled Test 1993-01-14 00:00:00 Screening for malignant neoplasm of cervix (procedure) [code = [id number]] [facility] Future Scheduled Test 1993-01-14 00:00:00 Screening for malignant neoplasm of cervix (procedure) [code = [id number]] [facility] Future Scheduled Test 1993-01-14 00:00:00 Screening for malignant neoplasm of cervix (procedure) [code = [id number]] [facility] Future Scheduled Test 1993-01-14 00:00:00 Screening for malignant neoplasm of cervix (procedure) [code = [id number]] [facility] Future Scheduled Test 1993-01-14 00:00:00 Screening for malignant neoplasm of cervix (procedure) [code = [id number]] [facility] Future Scheduled Test 1993-01-14 00:00:00 Screening for malignant neoplasm of cervix (procedure) [code = [id number]] [facility] Future Scheduled Test 1993-01-14 00:00:00 Screening for malignant neoplasm of cervix (procedure) [code = [id number]] [facility] Future Scheduled Test 1993-01-14 00:00:00 Screening for malignant neoplasm of cervix (procedure) [code = [id number]] [facility] Future Scheduled Test 1993-01-14 00:00:00 Screening for malignant neoplasm of cervix (procedure) [code = [id number]] [facility] Future Scheduled Test 1993-01-14 00:00:00 Screening for malignant neoplasm of cervix (procedure) [code = [id number]] [facility] Future Scheduled Test 1993-01-14 00:00:00 Screening for malignant neoplasm of cervix (procedure) [code = 480613910] [facility] Future Scheduled Test 1993-01-14 00:00:00 Screening for malignant neoplasm of cervix (procedure) [code = [id number]] [facility] Future Scheduled Test 1993-01-14 00:00:00 Screening for malignant neoplasm of cervix (procedure) [code = 534120760] [facility] Future Scheduled Test 1993-01-14 00:00:00 Screening for malignant neoplasm of cervix (procedure) [code = [id number]] [facility] Future Scheduled Test 1993-01-14 00:00:00 Screening for malignant neoplasm of cervix (procedure) [code = [id number]] [facility] Future Scheduled Test 1993-01-14 00:00:00 Screening for malignant neoplasm of cervix (procedure) [code = [id number]] [facility] Future Scheduled Test 1993-01-14 00:00:00 Screening for malignant neoplasm of cervix (procedure) [code = [id number]] [facility] Future Scheduled Test 1993-01-14 00:00:00 Screening for malignant neoplasm of cervix (procedure) [code = [id number]] [facility] Future Scheduled Test 1993-01-14 00:00:00 Screening for malignant neoplasm of cervix (procedure) [code = [id number]] [facility] Future Scheduled Test 1993-01-14 00:00:00 Screening for malignant neoplasm of cervix (procedure) [code = [id number]] [facility] Future Scheduled Test 1993-01-14 00:00:00 Screening for malignant neoplasm of cervix (procedure) [code = [id number]] [facility] Future Scheduled Test 1993-01-14 00:00:00 Screening for malignant neoplasm of cervix (procedure) [code = [id number]] [facility] Future Scheduled Test 1993-01-14 00:00:00 Screening for malignant neoplasm of cervix (procedure) [code = [id number]] [facility] Future Scheduled Test 1991-01-14 00:00:00 DTAP/TDAP/TD VACCINES (1 - Tdap) [code = DTAP/TDAP/TD VACCINES (1 - Tdap)] [facility] Future Scheduled Test 1991-01-14 00:00:00 DTAP/TDAP/TD VACCINES (1 - Tdap) [code = DTAP/TDAP/TD VACCINES (1 - Tdap)] [facility] Future Scheduled Test 1991-01-14 00:00:00 DTAP/TDAP/TD VACCINES (1 - Tdap) [code = DTAP/TDAP/TD VACCINES (1 - Tdap)] [facility] Future Scheduled Test 1991-01-14 00:00:00 DTAP/TDAP/TD VACCINES (1 - Tdap) [code = DTAP/TDAP/TD VACCINES (1 - Tdap)] [facility] Future Scheduled Test 1991-01-14 00:00:00 DTAP/TDAP/TD VACCINES (1 - Tdap) [code = DTAP/TDAP/TD VACCINES (1 - Tdap)] [facility] Future Scheduled Test 1991-01-14 00:00:00 DTAP/TDAP/TD VACCINES (1 - Tdap) [code = DTAP/TDAP/TD VACCINES (1 - Tdap)] [facility] Future Scheduled Test 1991-01-14 00:00:00 DTAP/TDAP/TD VACCINES (1 - Tdap) [code = DTAP/TDAP/TD VACCINES (1 - Tdap)] [facility] Future Scheduled Test 1991-01-14 00:00:00 DTAP/TDAP/TD VACCINES (1 - Tdap) [code = DTAP/TDAP/TD VACCINES (1 - Tdap)] [facility] Future Scheduled Test 1991-01-14 00:00:00 DTAP/TDAP/TD VACCINES (1 - Tdap) [code = DTAP/TDAP/TD VACCINES (1 - Tdap)] [facility] Future Scheduled Test 1991-01-14 00:00:00 DTAP/TDAP/TD VACCINES (1 - Tdap) [code = DTAP/TDAP/TD VACCINES (1 - Tdap)] [facility] Future Scheduled Test 1991-01-14 00:00:00 DTAP/TDAP/TD VACCINES (1 - Tdap) [code = DTAP/TDAP/TD VACCINES (1 - Tdap)] [facility] Future Scheduled Test 1991-01-14 00:00:00 DTAP/TDAP/TD VACCINES (1 - Tdap) [code = DTAP/TDAP/TD VACCINES (1 - Tdap)] [facility] Future Scheduled Test 1991-01-14 00:00:00 DTAP/TDAP/TD VACCINES (1 - Tdap) [code = DTAP/TDAP/TD VACCINES (1 - Tdap)] [facility] Future Scheduled Test 1991-01-14 00:00:00 DTAP/TDAP/TD VACCINES (1 - Tdap) [code = DTAP/TDAP/TD VACCINES (1 - Tdap)] [facility] Future Scheduled Test 1991-01-14 00:00:00 DTAP/TDAP/TD VACCINES (1 - Tdap) [code = DTAP/TDAP/TD VACCINES (1 - Tdap)] [facility] Future Scheduled Test 1991-01-14 00:00:00 DTAP/TDAP/TD VACCINES (1 - Tdap) [code = DTAP/TDAP/TD VACCINES (1 - Tdap)] [facility] Future Scheduled Test 1991-01-14 00:00:00 DTAP/TDAP/TD VACCINES (1 - Tdap) [code = DTAP/TDAP/TD VACCINES (1 - Tdap)] [facility] Future Scheduled Test 1991-01-14 00:00:00 DTAP/TDAP/TD VACCINES (1 - Tdap) [code = DTAP/TDAP/TD VACCINES (1 - Tdap)] [facility] Future Scheduled Test 1991-01-14 00:00:00 DTAP/TDAP/TD VACCINES (1 - Tdap) [code = DTAP/TDAP/TD VACCINES (1 - Tdap)] [facility] Future Scheduled Test 1991-01-14 00:00:00 DTAP/TDAP/TD VACCINES (1 - Tdap) [code = DTAP/TDAP/TD VACCINES (1 - Tdap)] [facility] Future Scheduled Test 1991-01-14 00:00:00 DTAP/TDAP/TD VACCINES (1 - Tdap) [code = DTAP/TDAP/TD VACCINES (1 - Tdap)] [facility] Future Scheduled Test 1991-01-14 00:00:00 DTAP/TDAP/TD VACCINES (1 - Tdap) [code = DTAP/TDAP/TD VACCINES (1 - Tdap)] [facility] Future Scheduled Test 1991-01-14 00:00:00 DTAP/TDAP/TD VACCINES (1 - Tdap) [code = DTAP/TDAP/TD VACCINES (1 - Tdap)] [facility] Future Scheduled Test 1991-01-14 00:00:00 DTAP/TDAP/TD VACCINES (1 - Tdap) [code = DTAP/TDAP/TD VACCINES (1 - Tdap)] [facility] Future Scheduled Test 1991-01-14 00:00:00 DTAP/TDAP/TD VACCINES (1 - Tdap) [code = DTAP/TDAP/TD VACCINES (1 - Tdap)] [facility] Future Scheduled Test 1991-01-14 00:00:00 DTAP/TDAP/TD VACCINES (1 - Tdap) [code = DTAP/TDAP/TD VACCINES (1 - Tdap)] [facility] Future Scheduled Test 1991-01-14 00:00:00 DTAP/TDAP/TD VACCINES (1 - Tdap) [code = DTAP/TDAP/TD VACCINES (1 - Tdap)] [facility] Future Scheduled Test 1991-01-14 00:00:00 DTAP/TDAP/TD VACCINES (1 - Tdap) [code = DTAP/TDAP/TD VACCINES (1 - Tdap)] [facility] Future Scheduled Test 1991-01-14 00:00:00 DTAP/TDAP/TD VACCINES (1 - Tdap) [code = DTAP/TDAP/TD VACCINES (1 - Tdap)] [facility] Future Scheduled Test 1991-01-14 00:00:00 DTAP/TDAP/TD VACCINES (1 - Tdap) [code = DTAP/TDAP/TD VACCINES (1 - Tdap)] [facility] Future Scheduled Test 1991-01-14 00:00:00 DTAP/TDAP/TD VACCINES (1 - Tdap) [code = DTAP/TDAP/TD VACCINES (1 - Tdap)] [facility] Future Scheduled Test 1991-01-14 00:00:00 DTAP/TDAP/TD VACCINES (1 - Tdap) [code = DTAP/TDAP/TD VACCINES (1 - Tdap)] [facility] Future Scheduled Test 1991-01-14 00:00:00 DTAP/TDAP/TD VACCINES (1 - Tdap) [code = DTAP/TDAP/TD VACCINES (1 - Tdap)] [facility] Future Scheduled Test 1991-01-14 00:00:00 DTAP/TDAP/TD VACCINES (1 - Tdap) [code = DTAP/TDAP/TD VACCINES (1 - Tdap)] [facility] Future Scheduled Test 1991-01-14 00:00:00 DTAP/TDAP/TD VACCINES (1 - Tdap) [code = DTAP/TDAP/TD VACCINES (1 - Tdap)] [facility] Future Scheduled Test 1991-01-14 00:00:00 DTAP/TDAP/TD VACCINES (1 - Tdap) [code = DTAP/TDAP/TD VACCINES (1 - Tdap)] [facility] Future Scheduled Test 1991-01-14 00:00:00 DTAP/TDAP/TD VACCINES (1 - Tdap) [code = DTAP/TDAP/TD VACCINES (1 - Tdap)] [facility] Future Scheduled Test 1991-01-14 00:00:00 DTAP/TDAP/TD VACCINES (1 - Tdap) [code = DTAP/TDAP/TD VACCINES (1 - Tdap)] [facility] Future Scheduled Test 1991-01-14 00:00:00 DTAP/TDAP/TD VACCINES (1 - Tdap) [code = DTAP/TDAP/TD VACCINES (1 - Tdap)] [facility] Future Scheduled Test 1991-01-14 00:00:00 DTAP/TDAP/TD VACCINES (1 - Tdap) [code = DTAP/TDAP/TD VACCINES (1 - Tdap)] [facility] Future Scheduled Test 1991-01-14 00:00:00 DTAP/TDAP/TD VACCINES (1 - Tdap) [code = DTAP/TDAP/TD VACCINES (1 - Tdap)] [facility] Future Scheduled Test 1991-01-14 00:00:00 DTAP/TDAP/TD VACCINES (1 - Tdap) [code = DTAP/TDAP/TD VACCINES (1 - Tdap)] [facility] Future Scheduled Test 1991-01-14 00:00:00 DTAP/TDAP/TD VACCINES (1 - Tdap) [code = DTAP/TDAP/TD VACCINES (1 - Tdap)] [facility] Future Scheduled Test 1991-01-14 00:00:00 DTAP/TDAP/TD VACCINES (1 - Tdap) [code = DTAP/TDAP/TD VACCINES (1 - Tdap)] [facility] Future Scheduled Test 1991-01-14 00:00:00 DTAP/TDAP/TD VACCINES (1 - Tdap) [code = DTAP/TDAP/TD VACCINES (1 - Tdap)] [facility] Future Scheduled Test 1991-01-14 00:00:00 DTAP/TDAP/TD VACCINES (1 - Tdap) [code = DTAP/TDAP/TD VACCINES (1 - Tdap)] [facility] Future Scheduled Test 1991-01-14 00:00:00 DTAP/TDAP/TD VACCINES (1 - Tdap) [code = DTAP/TDAP/TD VACCINES (1 - Tdap)] [facility] Future Scheduled Test 1991-01-14 00:00:00 DTAP/TDAP/TD VACCINES (1 - Tdap) [code = DTAP/TDAP/TD VACCINES (1 - Tdap)] [facility] Future Scheduled Test 1991-01-14 00:00:00 DTAP/TDAP/TD VACCINES (1 - Tdap) [code = DTAP/TDAP/TD VACCINES (1 - Tdap)] [facility] Future Scheduled Test 1991-01-14 00:00:00 DTAP/TDAP/TD VACCINES (1 - Tdap) [code = DTAP/TDAP/TD VACCINES (1 - Tdap)] [facility] Future Scheduled Test 1991-01-14 00:00:00 DTAP/TDAP/TD VACCINES (1 - Tdap) [code = DTAP/TDAP/TD VACCINES (1 - Tdap)] [facility] Future Scheduled Test 1991-01-14 00:00:00 DTAP/TDAP/TD VACCINES (1 - Tdap) [code = DTAP/TDAP/TD VACCINES (1 - Tdap)] [facility] Future Scheduled Test 1991-01-14 00:00:00 DTAP/TDAP/TD VACCINES (1 - Tdap) [code = DTAP/TDAP/TD VACCINES (1 - Tdap)] [facility] Future Scheduled Test 1991-01-14 00:00:00 DTAP/TDAP/TD VACCINES (1 - Tdap) [code = DTAP/TDAP/TD VACCINES (1 - Tdap)] [facility] [facility]14 00:00:00 DTAP/TDAP/TD VACCINES (1 - Tdap) [code = DTAP/TDAP/TD VACCINES (1 - Tdap)] [facility] Future Scheduled Test 1991-01-14 00:00:00 DTAP/TDAP/TD VACCINES (1 - Tdap) [code = DTAP/TDAP/TD VACCINES (1 - Tdap)] [facility] Future Scheduled Test 1991-01-14 00:00:00 DTAP/TDAP/TD VACCINES (1 - Tdap) [code = DTAP/TDAP/TD VACCINES (1 - Tdap)] [facility] Scheduled Test 1991-01-14 00:00:00 DTAP/TDAP/TD VACCINES (1 - Tdap) [code = DTAP/TDAP/TD VACCINES (1 - Tdap)] [facility] Future Scheduled Test 1991-01-14 00:00:00 DTAP/TDAP/TD VACCINES (1 - Tdap) [code = DTAP/TDAP/TD VACCINES (1 - Tdap)] [facility] Future Scheduled Test 1991-01-14 00:00:00 DTAP/TDAP/TD VACCINES (1 - Tdap) [code = DTAP/TDAP/TD VACCINES (1 - Tdap)] [facility] Future Scheduled Test 1991-01-14 00:00:00 DTAP/TDAP/TD VACCINES (1 - Tdap) [code = DTAP/TDAP/TD VACCINES (1 - Tdap)] [facility] Future Scheduled Test 1991-01-14 00:00:00 DTAP/TDAP/TD VACCINES (1 - Tdap) [code = DTAP/TDAP/TD VACCINES (1 - Tdap)] [facility] Future Scheduled Test 1991-01-14 00:00:00 DTAP/TDAP/TD VACCINES (1 - Tdap) [code = DTAP/TDAP/TD VACCINES (1 - Tdap)] [facility] Future Scheduled Test 1991-01-14 00:00:00 DTAP/TDAP/TD VACCINES (1 - Tdap) [code = DTAP/TDAP/TD VACCINES (1 - Tdap)] [facility] Future Scheduled Test 1991-01-14 00:00:00 DTAP/TDAP/TD VACCINES (1 - Tdap) [code = DTAP/TDAP/TD VACCINES (1 - Tdap)] [facility] Future Scheduled Test 1991-01-14 00:00:00 DTAP/TDAP/TD VACCINES (1 - Tdap) [code = DTAP/TDAP/TD VACCINES (1 - Tdap)] [facility] Future Scheduled Test 1991-01-14 00:00:00 DTAP/TDAP/TD VACCINES (1 - Tdap) [code = DTAP/TDAP/TD VACCINES (1 - Tdap)] [facility] Future Scheduled Test 1991-01-14 00:00:00 DTAP/TDAP/TD VACCINES (1 - Tdap) [code = DTAP/TDAP/TD VACCINES (1 - Tdap)] [facility] Future Scheduled Test 1991-01-14 00:00:00 DTAP/TDAP/TD VACCINES (1 - Tdap) [code = DTAP/TDAP/TD VACCINES (1 - Tdap)] [facility] Future Scheduled Test 1991-01-14 00:00:00 DTAP/TDAP/TD VACCINES (1 - Tdap) [code = DTAP/TDAP/TD VACCINES (1 - Tdap)] [facility] Scheduled Test 1990-01-14 00:00:00 HEPATITIS C SCREENING [code = HEPATITIS C SCREENING] [facility] Future Scheduled Test 1990-01-14 00:00:00 HEPATITIS C SCREENING [code = HEPATITIS C SCREENING] [facility] Future Scheduled Test 1990-01-14 00:00:00 HEPATITIS C SCREENING [code = HEPATITIS C SCREENING] [facility] Future Scheduled Test 1990-01-14 00:00:00 HEPATITIS C SCREENING [code = HEPATITIS C SCREENING] [facility] Future Scheduled Test 1990-01-14 00:00:00 HEPATITIS C SCREENING [code = HEPATITIS C SCREENING] [facility] Future Scheduled Test 1990-01-14 00:00:00 HEPATITIS C SCREENING [code = HEPATITIS C SCREENING] [facility] Future Scheduled Test 1990-01-14 00:00:00 HEPATITIS C SCREENING [code = HEPATITIS C SCREENING] [facility] Future Scheduled Test 1990-01-14 00:00:00 HEPATITIS C SCREENING [code = HEPATITIS C SCREENING] [facility] Future Scheduled Test 1990-01-14 00:00:00 HEPATITIS C SCREENING [code = HEPATITIS C SCREENING] [facility] Future Scheduled Test 1990-01-14 00:00:00 HEPATITIS C SCREENING [code = HEPATITIS C SCREENING] [facility] Future Scheduled Test 1990-01-14 00:00:00 HEPATITIS C SCREENING [code = HEPATITIS C SCREENING] [facility] Future Scheduled Test 1990-01-14 00:00:00 HEPATITIS C SCREENING [code = HEPATITIS C SCREENING] [facility] Future Scheduled Test 1990-01-14 00:00:00 HEPATITIS C SCREENING [code = HEPATITIS C SCREENING] [facility] Future Scheduled Test 1990-01-14 00:00:00 HEPATITIS C SCREENING [code = HEPATITIS C SCREENING] [facility] Future Scheduled Test 1990-01-14 00:00:00 HEPATITIS C SCREENING [code = HEPATITIS C SCREENING] [facility] Future Scheduled Test 1990-01-14 00:00:00 HEPATITIS C SCREENING [code = HEPATITIS C SCREENING] [facility] Future Scheduled Test 1990-01-14 00:00:00 HEPATITIS C SCREENING [code = HEPATITIS C SCREENING] [facility] Future Scheduled Test 1990-01-14 00:00:00 HEPATITIS C SCREENING [code = HEPATITIS C SCREENING] [facility] Future Scheduled Test 1990-01-14 00:00:00 HEPATITIS C SCREENING [code = HEPATITIS C SCREENING] [facility] Future Scheduled Test 1990-01-14 00:00:00 HEPATITIS C SCREENING [code = HEPATITIS C SCREENING] [facility] Future Scheduled Test 1990-01-14 00:00:00 HEPATITIS C SCREENING [code = HEPATITIS C SCREENING] [facility] Future Scheduled Test 1990-01-14 00:00:00 HEPATITIS C SCREENING [code = HEPATITIS C SCREENING] [facility] Future Scheduled Test 1990-01-14 00:00:00 HEPATITIS C SCREENING [code = HEPATITIS C SCREENING] [facility] Future Scheduled Test 1990-01-14 00:00:00 HEPATITIS C SCREENING [code = HEPATITIS C SCREENING] [facility] Future Scheduled Test 1990-01-14 00:00:00 HEPATITIS C SCREENING [code = HEPATITIS C SCREENING] [facility] Future Scheduled Test 1990-01-14 00:00:00 HEPATITIS C SCREENING [code = HEPATITIS C SCREENING] [facility] Future Scheduled Test 1990-01-14 00:00:00 HEPATITIS C SCREENING [code = HEPATITIS C SCREENING] [facility] Future Scheduled Test 1990-01-14 00:00:00 HEPATITIS C SCREENING [code = HEPATITIS C SCREENING] [facility] Scheduled Test 1990-01-14 00:00:00 HEPATITIS C SCREENING [code = HEPATITIS C SCREENING] [facility] Future Scheduled Test 1990-01-14 00:00:00 HEPATITIS C SCREENING [code = HEPATITIS C SCREENING] [facility] Future Scheduled Test 1990-01-14 00:00:00 HEPATITIS C SCREENING [code = HEPATITIS C SCREENING] [facility] Future Scheduled Test 1990-01-14 00:00:00 HEPATITIS C SCREENING [code = HEPATITIS C SCREENING] [facility] Future Scheduled Test 1990-01-14 00:00:00 HEPATITIS C SCREENING [code = HEPATITIS C SCREENING] [facility] Future Scheduled Test 1990-01-14 00:00:00 HEPATITIS C SCREENING [code = HEPATITIS C SCREENING] [facility] Future Scheduled Test 1990-01-14 00:00:00 HEPATITIS C SCREENING [code = HEPATITIS C SCREENING] [facility] Future Scheduled Test 1990-01-14 00:00:00 HEPATITIS C SCREENING [code = HEPATITIS C SCREENING] [facility] Future Scheduled Test 1990-01-14 00:00:00 HEPATITIS C SCREENING [code = HEPATITIS C SCREENING] [facility] Scheduled Test 1990-01-14 00:00:00 HEPATITIS C SCREENING [code = HEPATITIS C SCREENING] [facility] Future Scheduled Test 1990-01-14 00:00:00 HEPATITIS C SCREENING [code = HEPATITIS C SCREENING] [facility] Future Scheduled Test 1990-01-14 00:00:00 HEPATITIS C SCREENING [code = HEPATITIS C SCREENING] [facility] Future Scheduled Test 1990-01-14 00:00:00 HEPATITIS C SCREENING [code = HEPATITIS C SCREENING] [facility] Future Scheduled Test 1990-01-14 00:00:00 HEPATITIS C SCREENING [code = HEPATITIS C SCREENING] [facility] Future Scheduled Test 1990-01-14 00:00:00 HEPATITIS C SCREENING [code = HEPATITIS C SCREENING] [facility] Future Scheduled Test 1990-01-14 00:00:00 HEPATITIS C SCREENING [code = HEPATITIS C SCREENING] [facility] Future Scheduled Test 1990-01-14 00:00:00 HEPATITIS C SCREENING [code = HEPATITIS C SCREENING] [facility] Future Scheduled Test 1990-01-14 00:00:00 HEPATITIS C SCREENING [code = HEPATITIS C SCREENING] [facility] Future Scheduled Test 1990-01-14 00:00:00 HEPATITIS C SCREENING [code = HEPATITIS C SCREENING] [facility] Future Scheduled Test 1990-01-14 00:00:00 HEPATITIS C SCREENING [code = HEPATITIS C SCREENING] [facility] Future Scheduled Test 1990-01-14 00:00:00 HEPATITIS C SCREENING [code = HEPATITIS C SCREENING] [facility] Future Scheduled Test 1990-01-14 00:00:00 HEPATITIS C SCREENING [code = HEPATITIS C SCREENING] [facility] Future Scheduled Test 1990-01-14 00:00:00 HEPATITIS C SCREENING [code = HEPATITIS C SCREENING] [facility] Future Scheduled Test 1990-01-14 00:00:00 HEPATITIS C SCREENING [code = HEPATITIS C SCREENING] [facility] Future Scheduled Test 1990-01-14 00:00:00 HEPATITIS C SCREENING [code = HEPATITIS C SCREENING] [facility] Future Scheduled Test 1990-01-14 00:00:00 HEPATITIS C SCREENING [code = HEPATITIS C SCREENING] [facility] Future Scheduled Test 1990-01-14 00:00:00 HEPATITIS C SCREENING [code = HEPATITIS C SCREENING] [facility] Future Scheduled Test 1990-01-14 00:00:00 HEPATITIS C SCREENING [code = HEPATITIS C SCREENING] [facility] Future Scheduled Test 1990-01-14 00:00:00 HEPATITIS C SCREENING [code = HEPATITIS C SCREENING] [facility] Future Scheduled Test 1990-01-14 00:00:00 HEPATITIS C SCREENING [code = HEPATITIS C SCREENING] [facility] Future Scheduled Test 1990-01-14 00:00:00 HEPATITIS C SCREENING [code = HEPATITIS C SCREENING] [facility] Future Scheduled Test 1990-01-14 00:00:00 HEPATITIS C SCREENING [code = HEPATITIS C SCREENING] [facility] Future Scheduled Test 1990-01-14 00:00:00 HEPATITIS C SCREENING [code = HEPATITIS C SCREENING] [facility] Future Scheduled Test 1990-01-14 00:00:00 HEPATITIS C SCREENING [code = HEPATITIS C SCREENING] [facility] Future Scheduled Test 1990-01-14 00:00:00 HEPATITIS C SCREENING [code = HEPATITIS C SCREENING] [facility] Future Scheduled Test 1990-01-14 00:00:00 HEPATITIS C SCREENING [code = HEPATITIS C SCREENING] [facility] Future Scheduled Test 1990-01-14 00:00:00 HEPATITIS C SCREENING [code = HEPATITIS C SCREENING] [facility] Future Scheduled Test 1990-01-14 00:00:00 HEPATITIS C SCREENING [code = HEPATITIS C SCREENING] [facility] Future Scheduled Test 1990-01-14 00:00:00 HEPATITIS C SCREENING [code = HEPATITIS C SCREENING] [facility] Future Scheduled Test 1990-01-14 00:00:00 HEPATITIS C SCREENING [code = HEPATITIS C SCREENING] [facility] Future Scheduled Test 1990-01-14 00:00:00 HEPATITIS C SCREENING [code = HEPATITIS C SCREENING] [facility] Future Scheduled Test 1990-01-14 00:00:00 HEPATITIS C SCREENING [code = HEPATITIS C SCREENING] [facility] Future Scheduled Test 1987-01-14 00:00:00 Human immunodeficiency virus screening (procedure) [code = 412929932] [facility] Future Scheduled Test 1987-01-14 00:00:00 Human immunodeficiency virus screening (procedure) [code = [id number]] [facility] Future Scheduled Test 1984 00:00:00 Tobacco Cessation Counseling and Screening (12+) [code = Tobacco Cessation Counseling and Screening (12+)] [facility] Future Scheduled Test 1984 00:00:00 Tobacco Cessation Counseling and Screening (12+) [code = Tobacco Cessation Counseling and Screening (12+)] [facility] Future Scheduled Test 1984 00:00:00 Tobacco Cessation Counseling and Screening (12+) [code = Tobacco Cessation Counseling and Screening (12+)] [facility] Future Scheduled Test 1984 00:00:00 Tobacco Cessation Counseling and Screening (12+) [code = Tobacco Cessation Counseling and Screening (12+)] [facility] Future Scheduled Test 1984 00:00:00 Tobacco Cessation Counseling and Screening (12+) [code = Tobacco Cessation Counseling and Screening (12+)] [facility] Future Scheduled Test 1984 00:00:00 Tobacco Cessation Counseling and Screening (12+) [code = Tobacco Cessation Counseling and Screening (12+)] [facility] Scheduled Test 1984 00:00:00 Tobacco Cessation Counseling and Screening (12+) [code = Tobacco Cessation Counseling and Screening (12+)] [facility] Future Scheduled Test 1984 00:00:00 Tobacco Cessation Counseling and Screening (12+) [code = Tobacco Cessation Counseling and Screening (12+)] [facility] Future Scheduled Test 1984 00:00:00 Tobacco Cessation Counseling and Screening (12+) [code = Tobacco Cessation Counseling and Screening (12+)] [facility] Future Scheduled Test 1984 00:00:00 Tobacco Cessation Counseling and Screening (12+) [code = Tobacco Cessation Counseling and Screening (12+)] [facility] Future Scheduled Test 1984 00:00:00 Tobacco Cessation Counseling and Screening (12+) [code = Tobacco Cessation Counseling and Screening (12+)] [facility] Future Scheduled Test 1984 00:00:00 Tobacco Cessation Counseling and Screening (12+) [code = Tobacco Cessation Counseling and Screening (12+)] [facility] Future Scheduled Test 1984 00:00:00 Tobacco Cessation Counseling and Screening (12+) [code = Tobacco Cessation Counseling and Screening (12+)] [facility] Future Scheduled Test 1984 00:00:00 Tobacco Cessation Counseling and Screening (12+) [code = Tobacco Cessation Counseling and Screening (12+)] [facility] Future Scheduled Test 1984 00:00:00 Tobacco Cessation Counseling and Screening (12+) [code = Tobacco Cessation Counseling and Screening (12+)] [facility] Future Scheduled Test 1984 00:00:00 Tobacco Cessation Counseling and Screening (12+) [code = Tobacco Cessation Counseling and Screening (12+)] [facility] Future Scheduled Test 1984 00:00:00 Tobacco Cessation Counseling and Screening (12+) [code = Tobacco Cessation Counseling and Screening (12+)] [facility] Future Scheduled Test 1984 00:00:00 Tobacco Cessation Counseling and Screening (12+) [code = Tobacco Cessation Counseling and Screening (12+)] [facility] Scheduled Test 1984 00:00:00 Tobacco Cessation Counseling and Screening (12+) [code = Tobacco Cessation Counseling and Screening (12+)] [facility] Scheduled Test 1984 00:00:00 Tobacco Cessation Counseling and Screening (12+) [code = Tobacco Cessation Counseling and Screening (12+)] [facility] Future Scheduled Test 1984 00:00:00 Tobacco Cessation Counseling and Screening (12+) [code = Tobacco Cessation Counseling and Screening (12+)] [facility] Scheduled Test 1984 00:00:00 Tobacco Cessation Counseling and Screening (12+) [code = Tobacco Cessation Counseling and Screening (12+)] [facility] Future Scheduled Test 1984 00:00:00 Tobacco Cessation Counseling and Screening (12+) [code = Tobacco Cessation Counseling and Screening (12+)] [facility] Future Scheduled Test 1972 00:00:00 Screening for malignant neoplasm of breast (procedure) [code = [id number]] [facility] Future Scheduled Test 1972 00:00:00 CT Colonography (combo) [code = CT Colonography (combo)] [facility] Future Scheduled Test 1972 00:00:00 Screening for malignant neoplasm of colon (procedure) [code = 339252935] [facility] Future Scheduled Test 1972 00:00:00 Screening for malignant neoplasm of colon (procedure) [code = 364197521] [facility] Future Scheduled Test 1972 00:00:00 Screening for malignant neoplasm of colon (procedure) [code = 398697812] [facility] Future Scheduled Test 1972 00:00:00 Screening for malignant neoplasm of colon (procedure) [code = 589092013] [facility] Future Scheduled Test 1972 00:00:00 Sigmoidoscopy [code = Sigmoidoscopy] [facility] Future Scheduled Test 1972 00:00:00 Screening for malignant neoplasm of breast (procedure) [code = 529102963] [facility] Future Scheduled Test 1972 00:00:00 CT Colonography (combo) [code = CT Colonography (combo)] [facility] Future Scheduled Test 1972 00:00:00 Screening for malignant neoplasm of colon (procedure) [code = 812689102] [facility] Future Scheduled Test 1972 00:00:00 Screening for malignant neoplasm of colon (procedure) [code = 074659787] [facility] Future Scheduled Test 1972 00:00:00 Screening for malignant neoplasm of colon (procedure) [code = 220214348] [facility] Future Scheduled Test 1972 00:00:00 Screening for malignant neoplasm of colon (procedure) [code = 071728745] [facility] Future Scheduled Test 1972 00:00:00 Sigmoidoscopy [code = Sigmoidoscopy] [facility] Future Scheduled Test 1972 00:00:00 Screening for malignant neoplasm of breast (procedure) [code = 819082160] [facility] Future Scheduled Test 1972 00:00:00 CT Colonography (combo) [code = CT Colonography (combo)] [facility] Future Scheduled Test 1972 00:00:00 Screening for malignant neoplasm of colon (procedure) [code = 103622178] [facility] Future Scheduled Test 1972 00:00:00 Screening for malignant neoplasm of colon (procedure) [code = 181009692] [facility] Future Scheduled Test 1972 00:00:00 Screening for malignant neoplasm of colon (procedure) [code = 823249881] [facility] Future Scheduled Test 1972 00:00:00 Screening for malignant neoplasm of colon (procedure) [code = 370671615] [facility] Future Scheduled Test 1972 00:00:00 Sigmoidoscopy [code = Sigmoidoscopy] [facility] Future Scheduled Test 1972 00:00:00 Screening for malignant neoplasm of breast (procedure) [code = 302691045] [facility] Future Scheduled Test 1972 00:00:00 CT Colonography (combo) [code = CT Colonography (combo)] [facility] Future Scheduled Test 1972 00:00:00 Screening for malignant neoplasm of colon (procedure) [code = 109245172] [facility] Future Scheduled Test 1972 00:00:00 Screening for malignant neoplasm of colon (procedure) [code = 988964889] [facility] Future Scheduled Test 1972 00:00:00 Screening for malignant neoplasm of colon (procedure) [code = 775493074] [facility] Future Scheduled Test 1972 00:00:00 Screening for malignant neoplasm of colon (procedure) [code = 399850974] [facility] Future Scheduled Test 1972 00:00:00 Sigmoidoscopy [code = Sigmoidoscopy] [facility] Future Scheduled Test 1972 00:00:00 Screening for malignant neoplasm of breast (procedure) [code = 641944604] [facility] Future Scheduled Test 1972 00:00:00 CT Colonography (combo) [code = CT Colonography (combo)] [facility] Future Scheduled Test 1972 00:00:00 Screening for malignant neoplasm of colon (procedure) [code = 272838316] [facility] Future Scheduled Test 1972 00:00:00 Screening for malignant neoplasm of colon (procedure) [code = 395594256] [facility] Future Scheduled Test 1972 00:00:00 Screening for malignant neoplasm of colon (procedure) [code = 721502686] [facility] Future Scheduled Test 1972 00:00:00 Screening for malignant neoplasm of colon (procedure) [code = 753703876] [facility] Future Scheduled Test 1972 00:00:00 Sigmoidoscopy [code = Sigmoidoscopy] [facility] Future Scheduled Test 1972 00:00:00 Screening for malignant neoplasm of breast (procedure) [code = 847194511] [facility] Future Scheduled Test 1972 00:00:00 CT Colonography (combo) [code = CT Colonography (combo)] [facility] Future Scheduled Test 1972 00:00:00 Screening for malignant neoplasm of colon (procedure) [code = 720386791] [facility] Future Scheduled Test 1972 00:00:00 Screening for malignant neoplasm of colon (procedure) [code = 244557799] [facility] Future Scheduled Test 1972 00:00:00 Screening for malignant neoplasm of colon (procedure) [code = 651802931] [facility] Future Scheduled Test 1972 00:00:00 Screening for malignant neoplasm of colon (procedure) [code = 938133588] [facility] Future Scheduled Test 1972 00:00:00 Sigmoidoscopy [code = Sigmoidoscopy] [facility] Future Scheduled Test 1972 00:00:00 Screening for malignant neoplasm of breast (procedure) [code = 855822895] [facility] Future Scheduled Test 1972 00:00:00 CT Colonography (combo) [code = CT Colonography (combo)] [facility] Scheduled Test 1972 00:00:00 Screening for malignant neoplasm of colon (procedure) [code = 699235912] [facility] Future Scheduled Test 1972 00:00:00 Screening for malignant neoplasm of colon (procedure) [code = 407559462] [facility] Scheduled Test 1972 00:00:00 Screening for malignant neoplasm of colon (procedure) [code = 045947454] [facility] Future Scheduled Test 1972 00:00:00 Screening for malignant neoplasm of colon (procedure) [code = 175980705] [facility] Future Scheduled Test 1972 00:00:00 Sigmoidoscopy [code = Sigmoidoscopy] [facility] Future Scheduled Test 1972 00:00:00 Screening for malignant neoplasm of breast (procedure) [code = 370367783] [facility] Future Scheduled Test 1972 00:00:00 CT Colonography (combo) [code = CT Colonography (combo)] [facility] Scheduled Test 1972 00:00:00 Screening for malignant neoplasm of colon (procedure) [code = 809698939] [facility] Scheduled Test 1972 00:00:00 Screening for malignant neoplasm of colon (procedure) [code = 589258824] [facility] Future Scheduled Test 1972 00:00:00 Screening for malignant neoplasm of colon (procedure) [code = 540920886] [facility] Future Scheduled Test 1972 00:00:00 Screening for malignant neoplasm of colon (procedure) [code = 097682969] [facility] Scheduled Test 1972 00:00:00 Sigmoidoscopy [code = Sigmoidoscopy] [facility] Scheduled Test 1972 00:00:00 Screening for malignant neoplasm of breast (procedure) [code = 408161967] [facility] Scheduled Test 1972 00:00:00 CT Colonography (combo) [code = CT Colonography (combo)] [facility] Scheduled Test 1972 00:00:00 Screening for malignant neoplasm of colon (procedure) [code = 502198777] [facility] Scheduled Test 1972 00:00:00 Screening for malignant neoplasm of colon (procedure) [code = 843623502] [facility] Scheduled Test 1972 00:00:00 Screening for malignant neoplasm of colon (procedure) [code = 424187823] [facility] Scheduled Test 1972 00:00:00 Screening for malignant neoplasm of colon (procedure) [code = 476915612] [facility] Scheduled Test 1972 00:00:00 Sigmoidoscopy [code = Sigmoidoscopy] [facility] Scheduled Test 1972 00:00:00 Screening for malignant neoplasm of breast (procedure) [code = 680818859] [facility] Future Scheduled Test 1972 00:00:00 CT Colonography (combo) [code = CT Colonography (combo)] [facility] Scheduled Test 1972 00:00:00 Screening for malignant neoplasm of colon (procedure) [code = 854438072] [facility] Future Scheduled Test 1972 00:00:00 Screening for malignant neoplasm of colon (procedure) [code = 066391933] [facility] Scheduled Test 1972 00:00:00 Screening for malignant neoplasm of colon (procedure) [code = 934895285] [facility] Scheduled Test 1972 00:00:00 Screening for malignant neoplasm of colon (procedure) [code = 953444094] [facility] Future Scheduled Test 1972 00:00:00 Sigmoidoscopy [code = Sigmoidoscopy] [facility] Future Scheduled Test 1972 00:00:00 Screening for malignant neoplasm of breast (procedure) [code = 353899645] [facility] Future Scheduled Test 1972 00:00:[address] Colonography (combo) [code = CT Colonography (combo)] [facility] Future Scheduled Test 1972 00:00:00 Screening for malignant neoplasm of colon (procedure) [code = [id number]] [facility] Scheduled Test 1972 00:00:00 Screening for malignant neoplasm of colon (procedure) [code = 245770862] [facility] Future Scheduled Test 1972 00:00:00 Screening for malignant neoplasm of colon (procedure) [code = 645349748] [facility] Future Scheduled Test 1972 00:00:00 Screening for malignant neoplasm of colon (procedure) [code = 786227919] [facility] Future Scheduled Test 1972 00:00:00 Sigmoidoscopy [code = Sigmoidoscopy] [facility] Scheduled Test 1972 00:00:00 Screening for malignant neoplasm of breast (procedure) [code = 805049050] [facility] Scheduled Test 1972 00:00:00 CT Colonography (combo) [code = CT Colonography (combo)] [facility] Scheduled Test 1972 00:00:00 Screening for malignant neoplasm of colon (procedure) [code = 154277031] [facility] Scheduled Test 1972 00:00:00 Screening for malignant neoplasm of colon (procedure) [code = 128629631] [facility] Scheduled Test 1972 00:00:00 Screening for malignant neoplasm of colon (procedure) [code = 481513034] [facility] Scheduled Test 1972 00:00:00 Screening for malignant neoplasm of colon (procedure) [code = 519540122] [facility] Scheduled Test 1972 00:00:00 Sigmoidoscopy [code = Sigmoidoscopy] [facility] Scheduled Test 1972 00:00:00 Screening for malignant neoplasm of breast (procedure) [code = 208504565] [facility] Scheduled Test 1972 00:00:00 CT Colonography (combo) [code = CT Colonography (combo)] [facility] Scheduled Test 1972 00:00:00 Screening for malignant neoplasm of colon (procedure) [code = 745670630] [facility] Scheduled Test 1972 00:00:00 Screening for malignant neoplasm of colon (procedure) [code = 772619985] [facility] Scheduled Test 1972 00:00:00 Screening for malignant neoplasm of colon (procedure) [code = 560251952] [facility] Scheduled Test 1972 00:00:00 Screening for malignant neoplasm of colon (procedure) [code = 385554846] [facility] Scheduled Test 1972 00:00:00 Sigmoidoscopy [code = Sigmoidoscopy] [facility] Scheduled Test 1972 00:00:00 Screening for malignant neoplasm of breast (procedure) [code = 610483837] [facility] Scheduled Test 1972 00:00:00 CT Colonography (combo) [code = CT Colonography (combo)] [facility] Scheduled Test 1972 00:00:00 Screening for malignant neoplasm of colon (procedure) [code = 026806592] [facility] Scheduled Test 1972 00:00:00 Screening for malignant neoplasm of colon (procedure) [code = 720534847] [facility] Scheduled Test 1972 00:00:00 Screening for malignant neoplasm of colon (procedure) [code = 537199519] [facility] Scheduled Test 1972 00:00:00 Screening for malignant neoplasm of colon (procedure) [code = 274830886] [facility] Scheduled Test 1972 00:00:00 Sigmoidoscopy [code = Sigmoidoscopy] [facility] Scheduled Test 1972 00:00:00 Screening for malignant neoplasm of breast (procedure) [code = 608304986] [facility] Scheduled Test 1972 00:00:00 CT Colonography (combo) [code = CT Colonography (combo)] [facility] Scheduled Test 1972 00:00:00 Screening for malignant neoplasm of colon (procedure) [code = 288775345] [facility] Scheduled Test 1972 00:00:00 Screening for malignant neoplasm of colon (procedure) [code = 344245268] [facility] Scheduled Test 1972 00:00:00 Screening for malignant neoplasm of colon (procedure) [code = 239135891] [facility] Scheduled Test 1972 00:00:00 Screening for malignant neoplasm of colon (procedure) [code = 625583058] [facility] Scheduled Test 1972 00:00:00 Sigmoidoscopy [code = Sigmoidoscopy] [facility] Scheduled Test 1972 00:00:00 Screening for malignant neoplasm of breast (procedure) [code = 525019654] [facility] Scheduled Test 1972 00:00:00 CT Colonography (combo) [code = CT Colonography (combo)] [facility] Scheduled Test 1972 00:00:00 Screening for malignant neoplasm of colon (procedure) [code = 494517715] [facility] Scheduled Test 1972 00:00:00 Screening for malignant neoplasm of colon (procedure) [code = 226888716] [facility] Scheduled Test 1972 00:00:00 Screening for malignant neoplasm of colon (procedure) [code = 205606528] [facility] Scheduled Test 1972 00:00:00 Screening for malignant neoplasm of colon (procedure) [code = 905152964] [facility] Scheduled Test 1972 00:00:00 Sigmoidoscopy [code = Sigmoidoscopy] [facility] Scheduled Test 1972 00:00:00 Screening for malignant neoplasm of breast (procedure) [code = 238552777] [facility] Scheduled Test 1972 00:00:00 CT Colonography (combo) [code = CT Colonography (combo)] [facility] Scheduled Test 1972 00:00:00 Screening for malignant neoplasm of colon (procedure) [code = 870122982] [facility] Scheduled Test 1972 00:00:00 Screening for malignant neoplasm of colon (procedure) [code = 979867324] [facility] Scheduled Test 1972 00:00:00 Screening for malignant neoplasm of colon (procedure) [code = 303460780] [facility] Scheduled Test 1972 00:00:00 Screening for malignant neoplasm of colon (procedure) [code = 424841818] [facility] Scheduled Test 1972 00:00:00 Sigmoidoscopy [code = Sigmoidoscopy] [facility] Scheduled Test 1972 00:00:00 Screening for malignant neoplasm of breast (procedure) [code = 596276016] [facility] Scheduled Test 1972 00:00:00 CT Colonography (combo) [code = CT Colonography (combo)] [facility] Scheduled Test 1972 00:00:00 Screening for malignant neoplasm of breast (procedure) [code = 621348004] [facility] Scheduled Test 1972 00:00:00 CT Colonography (combo) [code = CT Colonography (combo)] [facility] Scheduled Test 1972 00:00:00 Screening for malignant neoplasm of colon (procedure) [code = 016259216] [facility] Scheduled Test 1972 00:00:00 Screening for malignant neoplasm of colon (procedure) [code = 574648276] [facility] Scheduled Test 1972 00:00:00 Screening for malignant neoplasm of colon (procedure) [code = 661997146] [facility] Scheduled Test 1972 00:00:00 Screening for malignant neoplasm of colon (procedure) [code = 301484946] [facility] Scheduled Test 1972 00:00:00 Sigmoidoscopy [code = Sigmoidoscopy] [facility] Scheduled Test 1972 00:00:00 Screening for malignant neoplasm of colon (procedure) [code = 678202412] [facility] Scheduled Test 1972 00:00:00 Screening for malignant neoplasm of colon (procedure) [code = 717476732] [facility] Scheduled Test 1972 00:00:00 Screening for malignant neoplasm of colon (procedure) [code = 687183793] [facility] Scheduled Test 1972 00:00:00 Screening for malignant neoplasm of colon (procedure) [code = 590013891] [facility] Scheduled Test 1972 00:00:00 Sigmoidoscopy [code = Sigmoidoscopy] [facility] Scheduled Test 1972 00:00:00 Screening for malignant neoplasm of breast (procedure) [code = 361681077] [facility] Scheduled Test 1972 00:00:00 CT Colonography (combo) [code = CT Colonography (combo)] [facility] Scheduled Test 1972 00:00:00 Screening for malignant neoplasm of colon (procedure) [code = 123185092] [facility] Scheduled Test 1972 00:00:00 Screening for malignant neoplasm of colon (procedure) [code = 978248788] [facility] Scheduled Test 1972 00:00:00 Screening for malignant neoplasm of colon (procedure) [code = 442961618] [facility] Scheduled Test 1972 00:00:00 Screening for malignant neoplasm of colon (procedure) [code = 208536589] [facility] Scheduled Test 1972 00:00:00 Sigmoidoscopy [code = Sigmoidoscopy] [facility] Scheduled Test 1972 00:00:00 Screening for malignant neoplasm of breast (procedure) [code = 824799603] [facility] Scheduled Test 1972 00:00:00 CT Colonography (combo) [code = CT Colonography (combo)] [facility] Scheduled Test 1972 00:00:00 Screening for malignant neoplasm of colon (procedure) [code = 453300761] [facility] Scheduled Test 1972 00:00:00 Screening for malignant neoplasm of colon (procedure) [code = 447982059] [facility] Scheduled Test 1972 00:00:00 Screening for malignant neoplasm of colon (procedure) [code = 731175416] [facility] Scheduled Test 1972 00:00:00 Screening for malignant neoplasm of colon (procedure) [code = 576476104] [facility] Scheduled Test 1972 00:00:00 Sigmoidoscopy [code = Sigmoidoscopy] [facility] Scheduled Test 1972 00:00:00 Screening for malignant neoplasm of breast (procedure) [code = 201964164] [facility] Scheduled Test 1972 00:00:00 CT Colonography (combo) [code = CT Colonography (combo)] [facility] Scheduled Test 1972 00:00:00 Screening for malignant neoplasm of colon (procedure) [code = 487750041] [facility] Scheduled Test 1972 00:00:00 Screening for malignant neoplasm of colon (procedure) [code = 714272311] [facility] Scheduled Test 1972 00:00:00 Screening for malignant neoplasm of colon (procedure) [code = 769023531] [facility] Scheduled Test 1972 00:00:00 Screening for malignant neoplasm of colon (procedure) [code = 479158690] [facility] Scheduled Test 1972 00:00:00 Sigmoidoscopy [code = Sigmoidoscopy] [facility] Scheduled Test 1972 00:00:00 Screening for malignant neoplasm of breast (procedure) [code = 351759104] [facility] Scheduled Test 1972 00:00:00 CT Colonography (combo) [code = CT Colonography (combo)] [facility] Scheduled Test 1972 00:00:00 Screening for malignant neoplasm of colon (procedure) [code = 694325805] [facility] Scheduled Test 1972 00:00:00 Screening for malignant neoplasm of colon (procedure) [code = 426040359] [facility] Scheduled Test 1972 00:00:00 Screening for malignant neoplasm of colon (procedure) [code = 181535068] [facility] Scheduled Test 1972 00:00:00 Screening for malignant neoplasm of colon (procedure) [code = 377892265] [facility] Scheduled Test 1972 00:00:00 Sigmoidoscopy [code = Sigmoidoscopy] [facility] Scheduled Test 1972 00:00:00 Screening for malignant neoplasm of breast (procedure) [code = 914288593] [facility] Scheduled Test 1972 00:00:00 CT Colonography (combo) [code = CT Colonography (combo)] [facility] Scheduled Test 1972 00:00:00 Screening for malignant neoplasm of colon (procedure) [code = 078365098] [facility] Scheduled Test 1972 00:00:00 Screening for malignant neoplasm of colon (procedure) [code = 210054844] [facility] Scheduled Test 1972 00:00:00 Screening for malignant neoplasm of colon (procedure) [code = 776156697] [facility] Scheduled Test 1972 00:00:00 Screening for malignant neoplasm of colon (procedure) [code = 022670880] [facility] Scheduled Test 1972 00:00:00 Sigmoidoscopy [code = Sigmoidoscopy] [facility] Scheduled Test 1972 00:00:00 Screening for malignant neoplasm of breast (procedure) [code = 537974866] [facility] Scheduled Test 1972 00:00:00 CT Colonography (combo) [code = CT Colonography (combo)] [facility] Scheduled Test 1972 00:00:00 Screening for malignant neoplasm of colon (procedure) [code = 099795312] [facility] Scheduled Test 1972 00:00:00 Screening for malignant neoplasm of colon (procedure) [code = 602115637] [facility] Scheduled Test 1972 00:00:00 Screening for malignant neoplasm of colon (procedure) [code = 909430114] [facility] Scheduled Test 1972 00:00:00 Screening for malignant neoplasm of colon (procedure) [code = 530935897] [facility] Scheduled Test 1972 00:00:00 Sigmoidoscopy [code = Sigmoidoscopy] [facility] Scheduled Test 1972 00:00:00 Screening for malignant neoplasm of breast (procedure) [code = 120029807] [facility] Scheduled Test 1972 00:00:00 CT Colonography (combo) [code = CT Colonography (combo)] [facility] Scheduled Test 1972 00:00:00 Screening for malignant neoplasm of colon (procedure) [code = 076746221] [facility] Scheduled Test 1972 00:00:00 Screening for malignant neoplasm of colon (procedure) [code = 117958278] [facility] Scheduled Test 1972 00:00:00 Screening for malignant neoplasm of colon (procedure) [code = 886924196] [facility] Scheduled Test 1972 00:00:00 Screening for malignant neoplasm of colon (procedure) [code = 990312644] [facility] Scheduled Test 1972 00:00:00 Screening for malignant neoplasm of breast (procedure) [code = 177763210] [facility] Scheduled Test 1972 00:00:00 CT Colonography (combo) [code = CT Colonography (combo)] [facility] Scheduled Test 1972 00:00:00 Sigmoidoscopy [code = Sigmoidoscopy] [facility] Scheduled Test 1972 00:00:00 Screening for malignant neoplasm of colon (procedure) [code = 755563807] [facility] Scheduled Test 1972 00:00:00 Screening for malignant neoplasm of colon (procedure) [code = 679547255] [facility] Scheduled Test 1972 00:00:00 Screening for malignant neoplasm of colon (procedure) [code = 541445468] [facility] Scheduled Test 1972 00:00:00 Screening for malignant neoplasm of colon (procedure) [code = 202005224] [facility] Scheduled Test 1972 00:00:00 Sigmoidoscopy [code = Sigmoidoscopy] [facility] Scheduled Test 1972 00:00:00 Screening for malignant neoplasm of breast (procedure) [code = 040452216] [facility] Scheduled Test 1972 00:00:00 CT Colonography (combo) [code = CT Colonography (combo)] [facility] Scheduled Test 1972 00:00:00 Screening for malignant neoplasm of colon (procedure) [code = 176225339] [facility] Scheduled Test 1972 00:00:00 Screening for malignant neoplasm of colon (procedure) [code = 009170587] [facility] Scheduled Test 1972 00:00:00 Screening for malignant neoplasm of colon (procedure) [code = 329419380] [facility] Scheduled Test 1972 00:00:00 Screening for malignant neoplasm of colon (procedure) [code = 097375049] [facility] Scheduled Test 1972 00:00:00 Sigmoidoscopy [code = Sigmoidoscopy] [facility] Scheduled Test 1972 00:00:00 Screening for malignant neoplasm of breast (procedure) [code = 367342663] [facility] Scheduled Test 1972 00:00:00 CT Colonography (combo) [code = CT Colonography (combo)] [facility] Scheduled Test 1972 00:00:00 Screening for malignant neoplasm of colon (procedure) [code = 440693526] [facility] Scheduled Test 1972 00:00:00 Screening for malignant neoplasm of colon (procedure) [code = 184461570] [facility] Scheduled Test 1972 00:00:00 Screening for malignant neoplasm of colon (procedure) [code = 167994269] [facility] Scheduled Test 1972 00:00:00 Screening for malignant neoplasm of colon (procedure) [code = 701271974] [facility] Scheduled Test 1972 00:00:00 Sigmoidoscopy [code = Sigmoidoscopy] [facility] Scheduled Test 1972 00:00:00 Screening for malignant neoplasm of breast (procedure) [code = 682636815] [facility] Scheduled Test 1972 00:00:00 CT Colonography (combo) [code = CT Colonography (combo)] [facility] Scheduled Test 1972 00:00:00 Screening for malignant neoplasm of colon (procedure) [code = 725344068] [facility] Scheduled Test 1972 00:00:00 Screening for malignant neoplasm of colon (procedure) [code = 764742866] [facility] Scheduled Test 1972 00:00:00 Screening for malignant neoplasm of colon (procedure) [code = 422634855] [facility] Scheduled Test 1972 00:00:00 Screening for malignant neoplasm of colon (procedure) [code = 128790751] [facility] Scheduled Test 1972 00:00:00 Sigmoidoscopy [code = Sigmoidoscopy] [facility] Scheduled Test 1972 00:00:00 Screening for malignant neoplasm of breast (procedure) [code = 684534790] [facility] Scheduled Test 1972 00:00:00 CT Colonography (combo) [code = CT Colonography (combo)] [facility] Scheduled Test 1972 00:00:00 Screening for malignant neoplasm of colon (procedure) [code = 436937861] [facility] Scheduled Test 1972 00:00:00 Screening for malignant neoplasm of colon (procedure) [code = 849466968] [facility] Scheduled Test 1972 00:00:00 Screening for malignant neoplasm of colon (procedure) [code = 171637222] [facility] Scheduled Test 1972 00:00:00 Screening for malignant neoplasm of colon (procedure) [code = 054936367] [facility] Scheduled Test 1972 00:00:00 Sigmoidoscopy [code = Sigmoidoscopy] [facility] Scheduled Test 1972 00:00:00 Screening for malignant neoplasm of breast (procedure) [code = 020925358] [facility] Scheduled Test 1972 00:00:00 CT Colonography (combo) [code = CT Colonography (combo)] [facility] Scheduled Test 1972 00:00:00 Screening for malignant neoplasm of colon (procedure) [code = 979561513] [facility] Scheduled Test 1972 00:00:00 Screening for malignant neoplasm of colon (procedure) [code = 146450113] [facility] Scheduled Test 1972 00:00:00 Screening for malignant neoplasm of colon (procedure) [code = 597652017] [facility] Scheduled Test 1972 00:00:00 Screening for malignant neoplasm of colon (procedure) [code = 306482593] [facility] Scheduled Test 1972 00:00:00 Sigmoidoscopy [code = Sigmoidoscopy] [facility] Scheduled Test 1972 00:00:00 Screening for malignant neoplasm of breast (procedure) [code = 530219089] [facility] Scheduled Test 1972 00:00:00 CT Colonography (combo) [code = CT Colonography (combo)] [facility] Scheduled Test 1972 00:00:00 Screening for malignant neoplasm of colon (procedure) [code = 482708359] [facility] Scheduled Test 1972 00:00:00 Screening for malignant neoplasm of colon (procedure) [code = 776434385] [facility] Scheduled Test 1972 00:00:00 Screening for malignant neoplasm of breast (procedure) [code = 602442811] [facility] Scheduled Test 1972 00:00:00 Screening for malignant neoplasm of colon (procedure) [code = 035752609] [facility] Scheduled Test 1972 00:00:00 CT Colonography (combo) [code = CT Colonography (combo)] [facility] Scheduled Test 1972 00:00:00 Screening for malignant neoplasm of colon (procedure) [code = 514771451] [facility] Scheduled Test 1972 00:00:00 Screening for malignant neoplasm of colon (procedure) [code = 025750362] [facility] Scheduled Test 1972 00:00:00 Screening for malignant neoplasm of colon (procedure) [code = 736545922] [facility] Scheduled Test 1972 00:00:00 Screening for malignant neoplasm of colon (procedure) [code = 862097522] [facility] Scheduled Test 1972 00:00:00 Sigmoidoscopy [code = Sigmoidoscopy] [facility] Scheduled Test 1972 00:00:00 Screening for malignant neoplasm of colon (procedure) [code = 706722812] [facility] Scheduled Test 1972 00:00:00 Sigmoidoscopy [code = Sigmoidoscopy] [facility] Scheduled Test 1972 00:00:00 Screening for malignant neoplasm of breast (procedure) [code = 802056275] [facility] Scheduled Test 1972 00:00:00 CT Colonography (combo) [code = CT Colonography (combo)] [facility] Scheduled Test 1972 00:00:00 Screening for malignant neoplasm of colon (procedure) [code = 808701947] [facility] Scheduled Test 1972 00:00:00 Screening for malignant neoplasm of colon (procedure) [code = 711786678] [facility] Scheduled Test 1972 00:00:00 Screening for malignant neoplasm of colon (procedure) [code = 788367028] [facility] Scheduled Test 1972 00:00:00 Screening for malignant neoplasm of colon (procedure) [code = 353338762] [facility] Scheduled Test 1972 00:00:00 Sigmoidoscopy [code = Sigmoidoscopy] [facility] Scheduled Test 1972 00:00:00 Screening for malignant neoplasm of breast (procedure) [code = 458477588] [facility] Scheduled Test 1972 00:00:00 CT Colonography (combo) [code = CT Colonography (combo)] [facility] Scheduled Test 1972 00:00:00 Screening for malignant neoplasm of colon (procedure) [code = 528012456] [facility] Scheduled Test 1972 00:00:00 Screening for malignant neoplasm of colon (procedure) [code = 421132348] [facility] Scheduled Test 1972 00:00:00 Screening for malignant neoplasm of colon (procedure) [code = 264358208] [facility] Scheduled Test 1972 00:00:00 Screening for malignant neoplasm of colon (procedure) [code = 479555985] [facility] Scheduled Test 1972 00:00:00 Sigmoidoscopy [code = Sigmoidoscopy] [facility] Scheduled Test 1972 00:00:00 Screening for malignant neoplasm of breast (procedure) [code = 608864287] [facility] Scheduled Test 1972 00:00:00 CT Colonography (combo) [code = CT Colonography (combo)] [facility] Scheduled Test 1972 00:00:00 Screening for malignant neoplasm of colon (procedure) [code = 872811297] [facility] Scheduled Test 1972 00:00:00 Screening for malignant neoplasm of colon (procedure) [code = 758152026] [facility] Scheduled Test 1972 00:00:00 Screening for malignant neoplasm of colon (procedure) [code = 817202133] [facility] Scheduled Test 1972 00:00:00 Screening for malignant neoplasm of colon (procedure) [code = 245593651] [facility] Scheduled Test 1972 00:00:00 Sigmoidoscopy [code = Sigmoidoscopy] [facility] Scheduled Test 1972 00:00:00 Screening for malignant neoplasm of breast (procedure) [code = [id number]] [facility] Future Scheduled Test 1972 00:00:00 CT Colonography (combo) [code = CT Colonography (combo)] [facility] Future Scheduled Test 1972 00:00:00 Screening for malignant neoplasm of colon (procedure) [code = 151740459] [facility] Future Scheduled Test 1972 00:00:00 Screening for malignant neoplasm of colon (procedure) [code = 119571686] [facility] Future Scheduled Test 1972 00:00:00 Screening for malignant neoplasm of colon (procedure) [code = 105349487] [facility] Future Scheduled Test 1972 00:00:00 Screening for malignant neoplasm of colon (procedure) [code = 738450037] [facility] Future Scheduled Test 1972 00:00:00 Sigmoidoscopy [code = Sigmoidoscopy] [facility] Future Scheduled Test 1972 00:00:00 Screening for malignant neoplasm of breast (procedure) [code = 556341390] [facility] Future Scheduled Test 1972 00:00:00 CT Colonography (combo) [code = CT Colonography (combo)] [facility] Future Scheduled Test 1972 00:00:00 Screening for malignant neoplasm of colon (procedure) [code = 116243033] [facility] Future Scheduled Test 1972 00:00:00 Screening for malignant neoplasm of colon (procedure) [code = 093039342] [facility] Future Scheduled Test 1972 00:00:00 Screening for malignant neoplasm of colon (procedure) [code = 089892958] [facility] Future Scheduled Test 1972 00:00:00 Screening for malignant neoplasm of colon (procedure) [code = 917908330] [facility] Future Scheduled Test 1972 00:00:00 Sigmoidoscopy [code = Sigmoidoscopy] [facility] Future Scheduled Test 1972 00:00:00 Screening for malignant neoplasm of breast (procedure) [code = 833608400] [facility] Future Scheduled Test 1972 00:00:00 CT Colonography (combo) [code = CT Colonography (combo)] [facility] Future Scheduled Test 1972 00:00:00 Screening for malignant neoplasm of colon (procedure) [code = 460345444] [facility] Future Scheduled Test 1972 00:00:00 Screening for malignant neoplasm of colon (procedure) [code = 382733625] [facility] Future Scheduled Test 1972 00:00:00 Screening for malignant neoplasm of colon (procedure) [code = 755649731] [facility] Future Scheduled Test 1972 00:00:00 Screening for malignant neoplasm of colon (procedure) [code = 392735009] [facility] Future Scheduled Test 1972 00:00:00 Sigmoidoscopy [code = Sigmoidoscopy] [facility] Future Scheduled Test 1972 00:00:00 Screening for malignant neoplasm of breast (procedure) [code = 507166225] [facility] Future Scheduled Test 1972 00:00:00 CT Colonography (combo) [code = CT Colonography (combo)] [facility] Future Scheduled Test 1972 00:00:00 Screening for malignant neoplasm of colon (procedure) [code = 525546645] [facility] Future Scheduled Test 1972 00:00:00 Screening for malignant neoplasm of colon (procedure) [code = 089977523] [facility] Future Scheduled Test 1972 00:00:00 Screening for malignant neoplasm of colon (procedure) [code = 772849963] [facility] Future Scheduled Test 1972 00:00:00 Screening for malignant neoplasm of colon (procedure) [code = 071565308] [facility] Future Scheduled Test 1972 00:00:00 Sigmoidoscopy [code = Sigmoidoscopy] [facility] Future Scheduled Test 1972 00:00:00 Screening for malignant neoplasm of breast (procedure) [code = 517057632] [facility] Future Scheduled Test 1972 00:00:00 CT Colonography (combo) [code = CT Colonography (combo)] [facility] Future Scheduled Test 1972 00:00:00 Screening for malignant neoplasm of colon (procedure) [code = 789258497] [facility] Future Scheduled Test 1972 00:00:00 Screening for malignant neoplasm of colon (procedure) [code = 074897276] [facility] Future Scheduled Test 1972 00:00:00 Screening for malignant neoplasm of colon (procedure) [code = 520386400] [facility] Future Scheduled Test 1972 00:00:00 Screening for malignant neoplasm of colon (procedure) [code = 890197483] [facility] Future Scheduled Test 1972 00:00:00 Sigmoidoscopy [code = Sigmoidoscopy] [facility] Future Scheduled Test 1972 00:00:00 Screening for malignant neoplasm of breast (procedure) [code = 698046624] [facility] Future Scheduled Test 1972 00:00:00 CT Colonography (combo) [code = CT Colonography (combo)] [facility] Future Scheduled Test 1972 00:00:00 Screening for malignant neoplasm of colon (procedure) [code = 092143424] [facility] Future Scheduled Test 1972 00:00:00 Screening for malignant neoplasm of colon (procedure) [code = 288813131] [facility] Future Scheduled Test 1972 00:00:00 Screening for malignant neoplasm of colon (procedure) [code = 873339889] [facility] Future Scheduled Test 1972 00:00:00 Screening for malignant neoplasm of colon (procedure) [code = 744600251] [facility] Future Scheduled Test 1972 00:00:00 Sigmoidoscopy [code = Sigmoidoscopy] [facility] Future Scheduled Test 1972 00:00:00 Screening for malignant neoplasm of breast (procedure) [code = 728916103] [facility] Future Scheduled Test 1972 00:00:00 CT Colonography (combo) [code = CT Colonography (combo)] [facility] Future Scheduled Test 1972 00:00:00 Screening for malignant neoplasm of colon (procedure) [code = 910026051] [facility] Future Scheduled Test 1972 00:00:00 Screening for malignant neoplasm of colon (procedure) [code = 747177904] [facility] Future Scheduled Test 1972 00:00:00 Screening for malignant neoplasm of colon (procedure) [code = 075964623] [facility] Future Scheduled Test 1972 00:00:00 Screening for malignant neoplasm of colon (procedure) [code = 980207496] [facility] Future Scheduled Test 1972 00:00:00 Sigmoidoscopy [code = Sigmoidoscopy] [facility] Future Scheduled Test 1972 00:00:00 Screening for malignant neoplasm of breast (procedure) [code = 447443699] [facility] Future Scheduled Test 1972 00:00:00 CT Colonography (combo) [code = CT Colonography (combo)] [facility] Future Scheduled Test 1972 00:00:00 Screening for malignant neoplasm of colon (procedure) [code = 858938327] [facility] Future Scheduled Test 1972 00:00:00 Screening for malignant neoplasm of breast (procedure) [code = 018390823] [facility] Future Scheduled Test 1972 00:00:00 CT Colonography (combo) [code = CT Colonography (combo)] [facility] Future Scheduled Test 1972 00:00:00 Screening for malignant neoplasm of colon (procedure) [code = 526622519] [facility] Future Scheduled Test 1972 00:00:00 Screening for malignant neoplasm of colon (procedure) [code = 593790046] [facility] Future Scheduled Test 1972 00:00:00 Screening for malignant neoplasm of colon (procedure) [code = 397156470] [facility] Future Scheduled Test 1972 00:00:00 Screening for malignant neoplasm of colon (procedure) [code = 015321927] [facility] Future Scheduled Test 1972 00:00:00 Sigmoidoscopy [code = Sigmoidoscopy] [facility] Future Scheduled Test 1972 00:00:00 Screening for malignant neoplasm of colon (procedure) [code = 265612743] [facility] Future Scheduled Test 1972 00:00:00 Screening for malignant neoplasm of colon (procedure) [code = 086553464] [facility] Future Scheduled Test 1972 00:00:00 Screening for malignant neoplasm of colon (procedure) [code = 540396915] [facility] Future Scheduled Test 1972 00:00:00 Sigmoidoscopy [code = Sigmoidoscopy] [facility] Future Scheduled Test 1972 00:00:00 Screening for malignant neoplasm of breast (procedure) [code = 375647579] [facility] Future Scheduled Test 1972 00:00:00 CT Colonography (combo) [code = CT Colonography (combo)] [facility] Future Scheduled Test 1972 00:00:00 Screening for malignant neoplasm of colon (procedure) [code = 593591253] [facility] Future Scheduled Test 1972 00:00:00 Screening for malignant neoplasm of colon (procedure) [code = 207429217] [facility] Future Scheduled Test 1972 00:00:00 Screening for malignant neoplasm of colon (procedure) [code = 596668329] [facility] Future Scheduled Test 1972 00:00:00 Screening for malignant neoplasm of colon (procedure) [code = 022864401] [facility] Future Scheduled Test 1972 00:00:00 Sigmoidoscopy [code = Sigmoidoscopy] [facility] Future Scheduled Test 1972 00:00:00 Screening for malignant neoplasm of breast (procedure) [code = 393953972] [facility] Future Scheduled Test 1972 00:00:00 CT Colonography (combo) [code = CT Colonography (combo)] [facility] Future Scheduled Test 1972 00:00:00 Screening for malignant neoplasm of colon (procedure) [code = 028900220] [facility] Future Scheduled Test 1972 00:00:00 Screening for malignant neoplasm of colon (procedure) [code = 547247303] [facility] Future Scheduled Test 1972 00:00:00 Screening for malignant neoplasm of colon (procedure) [code = 436964623] [facility] Future Scheduled Test 1972 00:00:00 Screening for malignant neoplasm of colon (procedure) [code = 576664517] [facility] Future Scheduled Test 1972 00:00:00 Sigmoidoscopy [code = Sigmoidoscopy] [facility] Future Scheduled Test 1972 00:00:00 Screening for malignant neoplasm of breast (procedure) [code = 711096306] [facility] Future Scheduled Test 1972 00:00:00 CT Colonography (combo) [code = CT Colonography (combo)] [facility] Future Scheduled Test 1972 00:00:00 Screening for malignant neoplasm of colon (procedure) [code = 236424318] [facility] Future Scheduled Test 1972 00:00:00 Screening for malignant neoplasm of colon (procedure) [code = 936651445] [facility] Future Scheduled Test 1972 00:00:00 Screening for malignant neoplasm of colon (procedure) [code = 587778726] [facility] Future Scheduled Test 1972 00:00:00 Screening for malignant neoplasm of colon (procedure) [code = 536290255] [facility] Future Scheduled Test 1972 00:00:00 Sigmoidoscopy [code = Sigmoidoscopy] [facility] Future Scheduled Test 1972 00:00:00 Screening for malignant neoplasm of breast (procedure) [code = 130036741] [facility] Future Scheduled Test 1972 00:00:00 CT Colonography (combo) [code = CT Colonography (combo)] [facility] Future Scheduled Test 1972 00:00:00 Screening for malignant neoplasm of colon (procedure) [code = 581346371] [facility] Future Scheduled Test 1972 00:00:00 Screening for malignant neoplasm of colon (procedure) [code = 857339147] [facility] Future Scheduled Test 1972 00:00:00 Screening for malignant neoplasm of colon (procedure) [code = 131899328] [facility] Future Scheduled Test 1972 00:00:00 Screening for malignant neoplasm of colon (procedure) [code = 304060547] [facility] Future Scheduled Test 1972 00:00:00 Sigmoidoscopy [code = Sigmoidoscopy] [facility] Future Scheduled Test 1972 00:00:00 Screening for malignant neoplasm of breast (procedure) [code = 749773415] [facility] Future Scheduled Test 1972 00:00:00 CT Colonography (combo) [code = CT Colonography (combo)] [facility] Future Scheduled Test 1972 00:00:00 Screening for malignant neoplasm of colon (procedure) [code = 776584880] [facility] Future Scheduled Test 1972 00:00:00 Screening for malignant neoplasm of colon (procedure) [code = 480093879] [facility] Future Scheduled Test 1972 00:00:00 Screening for malignant neoplasm of colon (procedure) [code = 408686544] [facility] Future Scheduled Test 1972 00:00:00 Screening for malignant neoplasm of colon (procedure) [code = 161877486] [facility] Future Scheduled Test 1972 00:00:00 Screening for malignant neoplasm of breast (procedure) [code = 989429302] [facility] Future Scheduled Test 1972 00:00:00 Sigmoidoscopy [code = Sigmoidoscopy] [facility] Future Scheduled Test 1972 00:00:00 CT Colonography (combo) [code = CT Colonography (combo)] [facility] Future Scheduled Test 1972 00:00:00 Screening for malignant neoplasm of colon (procedure) [code = 686881430] [facility] Future Scheduled Test 1972 00:00:00 Screening for malignant neoplasm of breast (procedure) [code = 809720638] [facility] Future Scheduled Test 1972 00:00:00 CT Colonography (combo) [code = CT Colonography (combo)] [facility] Future Scheduled Test 1972 00:00:00 Screening for malignant neoplasm of colon (procedure) [code = 703751113] [facility] Future Scheduled Test 1972 00:00:00 Screening for malignant neoplasm of colon (procedure) [code = 056576879] [facility] Future Scheduled Test 1972 00:00:00 Screening for malignant neoplasm of colon (procedure) [code = 481349604] [facility] Future Scheduled Test 1972 00:00:00 Screening for malignant neoplasm of colon (procedure) [code = 034865393] [facility] Future Scheduled Test 1972 00:00:00 Screening for malignant neoplasm of colon (procedure) [code = 989143349] [facility] Future Scheduled Test 1972 00:00:00 Sigmoidoscopy [code = Sigmoidoscopy] [facility] Future Scheduled Test 1972 00:00:00 Screening for malignant neoplasm of colon (procedure) [code = 607069175] [facility] Future Scheduled Test 1972 00:00:00 Screening for malignant neoplasm of colon (procedure) [code = 912795527] [facility] Future Scheduled Test 1972 00:00:00 Screening for malignant neoplasm of breast (procedure) [code = 124291917] [facility] Future Scheduled Test 1972 00:00:00 CT Colonography (combo) [code = CT Colonography (combo)] [facility] Future Scheduled Test 1972 00:00:00 Screening for malignant neoplasm of colon (procedure) [code = 584763979] [facility] Future Scheduled Test 1972 00:00:00 Screening for malignant neoplasm of colon (procedure) [code = 098599702] [facility] Future Scheduled Test 1972 00:00:00 Sigmoidoscopy [code = Sigmoidoscopy] [facility] Future Scheduled Test 1972 00:00:00 Screening for malignant neoplasm of colon (procedure) [code = 692693601] [facility] Future Scheduled Test 1972 00:00:00 Screening for malignant neoplasm of colon (procedure) [code = 760109790] [facility] Future Scheduled Test 1972 00:00:00 Sigmoidoscopy [code = Sigmoidoscopy] [facility] Future Scheduled Test 1972 00:00:00 Screening for malignant neoplasm of breast (procedure) [code = 197614437] [facility] Future Scheduled Test 1972 00:00:00 CT Colonography (combo) [code = CT Colonography (combo)] [facility] Future Scheduled Test 1972 00:00:00 Screening for malignant neoplasm of colon (procedure) [code = 828255302] [facility] Future Scheduled Test 1972 00:00:00 Screening for malignant neoplasm of colon (procedure) [code = 193862823] [facility] Future Scheduled Test 1972 00:00:00 Screening for malignant neoplasm of colon (procedure) [code = 736110093] [facility] Future Scheduled Test 1972 00:00:00 Screening for malignant neoplasm of colon (procedure) [code = 465182036] [facility] Future Scheduled Test 1972 00:00:00 Sigmoidoscopy [code = Sigmoidoscopy] [facility] Future Scheduled Test 1972 00:00:00 Screening for malignant neoplasm of breast (procedure) [code = 300291697] [facility] Future Scheduled Test 1972 00:00:00 CT Colonography (combo) [code = CT Colonography (combo)] [facility] Future Scheduled Test 1972 00:00:00 Screening for malignant neoplasm of colon (procedure) [code = 969139478] [facility] Future Scheduled Test 1972 00:00:00 Screening for malignant neoplasm of colon (procedure) [code = 939103171] [facility] Future Scheduled Test 1972 00:00:00 Screening for malignant neoplasm of colon (procedure) [code = 046780432] [facility] Future Scheduled Test 1972 00:00:00 Screening for malignant neoplasm of colon (procedure) [code = 959966708] [facility] Future Scheduled Test 1972 00:00:00 Sigmoidoscopy [code = Sigmoidoscopy] [facility] Future Scheduled Test 1972 00:00:00 Screening for malignant neoplasm of breast (procedure) [code = 063948084] [facility] Future Scheduled Test 1972 00:00:00 CT Colonography (combo) [code = CT Colonography (combo)] [facility] Future Scheduled Test 1972 00:00:00 Screening for malignant neoplasm of colon (procedure) [code = 835417707] [facility] Future Scheduled Test 1972 00:00:00 Screening for malignant neoplasm of colon (procedure) [code = 412133821] [facility] Future Scheduled Test 1972 00:00:00 Screening for malignant neoplasm of colon (procedure) [code = 690332638] [facility] Future Scheduled Test 1972 00:00:00 Screening for malignant neoplasm of colon (procedure) [code = 471012460] [facility] Future Scheduled Test 1972 00:00:00 Sigmoidoscopy [code = Sigmoidoscopy] [facility] Future Scheduled Test 1972 00:00:00 Screening for malignant neoplasm of breast (procedure) [code = 011094838] [facility] Future Scheduled Test 1972 00:00:00 CT Colonography (combo) [code = CT Colonography (combo)] [facility] Future Scheduled Test 1972 00:00:00 Screening for malignant neoplasm of colon (procedure) [code = 110745287] [facility] Future Scheduled Test 1972 00:00:00 Screening for malignant neoplasm of colon (procedure) [code = 635020294] [facility] Future Scheduled Test 1972 00:00:00 Screening for malignant neoplasm of colon (procedure) [code = 969912406] [facility] Future Scheduled Test 1972 00:00:00 Screening for malignant neoplasm of colon (procedure) [code = 072831679] [facility] Future Scheduled Test 1972 00:00:00 Sigmoidoscopy [code = Sigmoidoscopy] [facility] Future Scheduled Test 1972 00:00:00 Screening for malignant neoplasm of breast (procedure) [code = 995294441] [facility] Future Scheduled Test 1972 00:00:00 CT Colonography (combo) [code = CT Colonography (combo)] [facility] Future Scheduled Test 1972 00:00:00 Screening for malignant neoplasm of colon (procedure) [code = 705661744] [facility] Future Scheduled Test 1972 00:00:00 Screening for malignant neoplasm of colon (procedure) [code = 490288033] [facility] Future Scheduled Test 1972 00:00:00 Screening for malignant neoplasm of colon (procedure) [code = 600156641] [facility] Future Scheduled Test 1972 00:00:00 Screening for malignant neoplasm of colon (procedure) [code = 718426586] [facility] Future Scheduled Test 1972 00:00:00 Sigmoidoscopy [code = Sigmoidoscopy] [facility] Future Scheduled Test 1972 00:00:00 Screening for malignant neoplasm of breast (procedure) [code = 536260075] [facility] Future Scheduled Test 1972 00:00:00 CT Colonography (combo) [code = CT Colonography (combo)] [facility] Future Scheduled Test 1972 00:00:00 Screening for malignant neoplasm of colon (procedure) [code = 897257313] [facility] Future Scheduled Test 1972 00:00:00 Screening for malignant neoplasm of colon (procedure) [code = 466601055] [facility] Future Scheduled Test 1972 00:00:00 Screening for malignant neoplasm of colon (procedure) [code = 647239843] [facility] Future Scheduled Test 1972 00:00:00 Screening for malignant neoplasm of colon (procedure) [code = 902570406] [facility] Future Scheduled Test 1972 00:00:00 Sigmoidoscopy [code = Sigmoidoscopy] [facility] Future Scheduled Test 1972 00:00:00 Screening for malignant neoplasm of breast (procedure) [code = 615585146] [facility] Future Scheduled Test 1972 00:00:00 CT Colonography (combo) [code = CT Colonography (combo)] [facility] Future Scheduled Test 1972 00:00:00 Screening for malignant neoplasm of colon (procedure) [code = 069564119] [facility] Future Scheduled Test 1972 00:00:00 Screening for malignant neoplasm of colon (procedure) [code = 578492012] [facility] Future Scheduled Test 1972 00:00:00 Screening for malignant neoplasm of colon (procedure) [code = 218587376] [facility] Future Scheduled Test 1972 00:00:00 Screening for malignant neoplasm of colon (procedure) [code = 032812635] [facility] Future Scheduled Test 1972 00:00:00 Sigmoidoscopy [code = Sigmoidoscopy] [facility] Future Scheduled Test 1972 00:00:00 Screening for malignant neoplasm of breast (procedure) [code = 477001361] [facility] Future Scheduled Test 1972 00:00:00 CT Colonography (combo) [code = CT Colonography (combo)] [facility] Future Scheduled Test 1972 00:00:00 Screening for malignant neoplasm of colon (procedure) [code = 492388157] [facility] Future Scheduled Test 1972 00:00:00 Screening for malignant neoplasm of colon (procedure) [code = 518285567] [facility] Future Scheduled Test 1972 00:00:00 Screening for malignant neoplasm of colon (procedure) [code = 540663713] [facility] Future Scheduled Test 1972 00:00:00 Screening for malignant neoplasm of colon (procedure) [code = 262481050] [facility] Future Scheduled Test 1972 00:00:00 Sigmoidoscopy [code = Sigmoidoscopy] [facility] Future Scheduled Test 1972 00:00:00 Screening for malignant neoplasm of breast (procedure) [code = 383946469] [facility] Future Scheduled Test 1972 00:00:00 CT Colonography (combo) [code = CT Colonography (combo)] [facility] Future Scheduled Test 1972 00:00:00 Screening for malignant neoplasm of colon (procedure) [code = 668340776] [facility] Future Scheduled Test 1972 00:00:00 Screening for malignant neoplasm of colon (procedure) [code = 606843291] [facility] Future Scheduled Test 1972 00:00:00 Screening for malignant neoplasm of colon (procedure) [code = 843744189] [facility] Future Scheduled Test 1972 00:00:00 Screening for malignant neoplasm of colon (procedure) [code = 937712087] [facility] Future Scheduled Test 1972 00:00:00 Sigmoidoscopy [code = Sigmoidoscopy] [facility] Future Scheduled Test 1972 00:00:00 Screening for malignant neoplasm of breast (procedure) [code = 230667581] [facility] Future Scheduled Test 1972 00:00:00 CT Colonography (combo) [code = CT Colonography (combo)] [facility] Future Scheduled Test 1972 00:00:00 Screening for malignant neoplasm of colon (procedure) [code = 866714532] [facility] Future Scheduled Test 1972 00:00:00 Screening for malignant neoplasm of colon (procedure) [code = 619133745] [facility] Future Scheduled Test 1972 00:00:00 Screening for malignant neoplasm of colon (procedure) [code = 972004837] [facility] Future Scheduled Test 1972 00:00:00 Screening for malignant neoplasm of colon (procedure) [code = 305100398] [facility] [facility] 1972 00:00:00 Sigmoidoscopy [code = Sigmoidoscopy] [facility] Future Scheduled Test 1972 00:00:00 Screening for malignant neoplasm of breast (procedure) [code = 027078660] [facility] Future Scheduled Test 1972 00:00:00 CT Colonography (combo) [code = CT Colonography (combo)] [facility] Future Scheduled Test 1972 00:00:00 Screening for malignant neoplasm of colon (procedure) [code = 874908817] [facility] Future Scheduled Test 1972 00:00:00 Screening for malignant neoplasm of colon (procedure) [code = 492137586] [facility] Future Scheduled Test 1972 00:00:00 Screening for malignant neoplasm of colon (procedure) [code = 425670401] [facility] Future Scheduled Test 1972 00:00:00 Screening for malignant neoplasm of colon (procedure) [code = 168330719] [facility] Future Scheduled Test 1972 00:00:00 Sigmoidoscopy [code = Sigmoidoscopy] [facility] Future Scheduled Test 1972 00:00:00 Screening for malignant neoplasm of breast (procedure) [code = 244336553] [facility] Future Scheduled Test 1972 00:00:00 CT Colonography (combo) [code = CT Colonography (combo)] [facility] Future Scheduled Test 1972 00:00:00 Screening for malignant neoplasm of colon (procedure) [code = 802599674] [facility] Future Scheduled Test 1972 00:00:00 Screening for malignant neoplasm of colon (procedure) [code = 979410045] [facility] Future Scheduled Test 1972 00:00:00 Screening for malignant neoplasm of colon (procedure) [code = 156658247] [facility] Future Scheduled Test 1972 00:00:00 Screening for malignant neoplasm of colon (procedure) [code = 463609296] [facility] Future Scheduled Test 1972 00:00:00 Sigmoidoscopy [code = Sigmoidoscopy] [facility] Future Scheduled Test 1972 00:00:00 Screening for malignant neoplasm of breast (procedure) [code = 771949521] [facility] Future Scheduled Test 1972 00:00:00 CT Colonography (combo) [code = CT Colonography (combo)] [facility] Future Scheduled Test 1972 00:00:00 Screening for malignant neoplasm of colon (procedure) [code = 087084329] [facility] Future Scheduled Test 1972 00:00:00 Screening for malignant neoplasm of colon (procedure) [code = 497200794] [facility] Future Scheduled Test 1972 00:00:00 Screening for malignant neoplasm of colon (procedure) [code = 477640987] [facility] Future Scheduled Test 1972 00:00:00 Screening for malignant neoplasm of colon (procedure) [code = 582206421] [facility] Future Scheduled Test 1972 00:00:00 Sigmoidoscopy [code = Sigmoidoscopy] [facility] Future Scheduled Test 1972 00:00:00 Screening for malignant neoplasm of breast (procedure) [code = 708471734] [facility] Future Scheduled Test 1972 00:00:00 CT Colonography (combo) [code = CT Colonography (combo)] [facility] Future Scheduled Test 1972 00:00:00 Screening for malignant neoplasm of colon (procedure) [code = 434065708] [facility] Future Scheduled Test 1972 00:00:00 Screening for malignant neoplasm of colon (procedure) [code = 169522923] [facility] Future Scheduled Test 1972 00:00:00 Screening for malignant neoplasm of colon (procedure) [code = 649912287] [facility] Future Scheduled Test 1972 00:00:00 Screening for malignant neoplasm of colon (procedure) [code = 917522603] [facility] Future Scheduled Test 1972 00:00:00 Sigmoidoscopy [code = Sigmoidoscopy] [facility] Future Scheduled Test 1972 00:00:00 Screening for malignant neoplasm of breast (procedure) [code = 813356124] [facility] Future Scheduled Test 1972 00:00:00 CT Colonography (combo) [code = CT Colonography (combo)] [facility] Future Scheduled Test 1972 00:00:00 Screening for malignant neoplasm of colon (procedure) [code = 038253579] [facility] Future Scheduled Test 1972 00:00:00 Screening for malignant neoplasm of colon (procedure) [code = 973753661] [facility] Future Scheduled Test 1972 00:00:00 Screening for malignant neoplasm of colon (procedure) [code = 117766947] [facility] Future Scheduled Test 1972 00:00:00 Screening for malignant neoplasm of colon (procedure) [code = 838612219] [facility] Future Scheduled Test 1972 00:00:00 Sigmoidoscopy [code = Sigmoidoscopy] [facility] Future Scheduled Test 1972 00:00:00 Screening for malignant neoplasm of breast (procedure) [code = 623682776] [facility] Future Scheduled Test 1972 00:00:00 CT Colonography (combo) [code = CT Colonography (combo)] [facility] Future Scheduled Test 1972 00:00:00 Screening for malignant neoplasm of colon (procedure) [code = 939243513] [facility] Future Scheduled Test 1972 00:00:00 Screening for malignant neoplasm of colon (procedure) [code = 865273453] [facility] Future Scheduled Test 1972 00:00:00 Screening for malignant neoplasm of colon (procedure) [code = 991888819] [facility] Future Scheduled Test 1972 00:00:00 Screening for malignant neoplasm of colon (procedure) [code = 693591428] [facility] Future Scheduled Test 1972 00:00:00 Sigmoidoscopy [code = Sigmoidoscopy] [facility] Goal Plan of Care Not e [code = 71583-6] Goal Plan of Care Not e [code = 16186-4] Goal Plan of Care Not e [code = 64479-4] Goal Plan of Care Not e [code = 08251-0] Goal Plan of Care Not e [code = 63446-6] Goal Plan of Care Not e [code = 13837-9] Goal Plan of Care Not e [code = 45886-7] Goal Plan of Care Not e [code = 47447-6] Goal Plan of Care Not e [code = 28922-0] Goal Plan of Care Not e [code = 39577-7] Goal Plan of Care Not e [code = 98557-4] Goal Plan of Care Not e [code = 77034-2] Goal Plan of Care Not e [code = 38345-9] Goal Plan of Care Not e [code = 25335-5] Goal Plan of Care Not e [code = 43619-8] Goal Plan of Care Not e [code = 71455-2] Goal Plan of Care Not e [code = 27840-6] Goal Plan of Care Not e [code = 43882-4] Goal Plan of Care Not e [code = 54272-8] Goal Plan of Care Not e [code = 78285-5] Goal Plan of Care Not e [code = 93300-0] Goal Plan of Care Not e [code = 55126-9] Goal Plan of Care Not e [code = 40761-0] Goal Plan of Care Not e [code = 32286-8] Goal Plan of Care Not e [code = 46255-2] Goal Plan of Care Not e [code = 33081-1] Goal Plan of Care Not e [code = 87553-4] Goal Plan of Care Not e [code = 78303-8] Goal Plan of Care Not e [code = 91933-4] Goal Plan of Care Not e [code = 24033-2] Goal Plan of Care Not e [code = 08042-2] Goal Plan of Care Not e [code = 23582-8] Goal Plan of Care Not e [code = 89801-9] Goal Plan of Care Not e [code = 04736-3] Goal Plan of Care Not e [code = 76289-7] Encounters Start Date/Time End Date/Time Encounter Type Admission Type Attending Clinicians Care Facility Care Department Encounter ID Source 2023-09-07 10:11:03 Inpatient [facility] PARRISH [facility] [id number] [facility] 2023-09-05 10:08:27 Inpatient PANKAJ PARRISH [facility] [id number] [facility] 2023-09-05 10:05:12 Inpatient PANKAJ PARRISH SLERigoberto [facility] [id number] [facility] 2023-09-04 04:51:30 Inpatient PANKAJ PARRISH [facility] [id number] [facility] 2023-09-04 04:14:55 Inpatient PANKAJ PARRISH [facility] SLE [id number] [facility] 2023-09-04 03:08:45 Inpatient PANKAJ PARRISH [facility] SLE [id number] [facility] 2023-09-04 02:36:28 Inpatient PANKAJ PARRISH [facility] SLE [id number] [facility] 2023-06-16 09:32:36 Inpatient AYDEE DICKENS SLE SLE [id number] [facility] 2023-06-16 09:32:09 [facility] [id number] 2023-06-16 09:31:53 Inpatient AYDEE DICKENS SLE SLE [id number] [facility] 2023-06-14 07:46:02 Inpatient AYDEE DICKENS SLEH SLE [id number] [facility] 2023-06-14 07:39:22 Inpatient AYDEE DICKENS SLE SLE [id number] [facility] 2023-06-14 06:38:38 [facility] [id number] [facility] 2023-06-13 13:44:18 Inpatient MARIANELA MURPHY SLE SLE [id number] [facility] 2023-06-13 11:45:24 In[facility] [id number] [facility] 2023-05-08 11:21:00 Outpatient EL ADAM GARCIA [facility] Surgery [id number] [facility] 2023-04-01 14:26:29 Inpatient ER THOMAS LOZOYA [facility] [id number] [facility] 2023-03-31 09:24:52 Inpatient ER LUIS CARLOS [facility] [id number] [facility] 2021-05-20 18:48:04 Emergency [facility] [id number] [facility] 2021-05-20 12:43:40 Emergency [facility] [id number] [facility] 2023-11-05 00:00:00 2024-09-03 02:17:06 Orders Only Doctor Unassigned, [place] Doctor Unassigned, [place] [facility] (EWELINA) 1.2.840.114 350.1.13.10 4.2.7.2.686 [id number] [facility] 2023-11-18 00:00:00 2024-09-03 02:07:30 Orders Only Doctor Unassigned, [place] Doctor Unassigned, [place] [facility] (EWELINA) 1.2.840.114 350.1.13.10 4.2.7.2.686 [id number] [facility] 2024-08-10 06:02:28 2024-08-10 23:59:00 Outpatient [facility] [id number] [facility] 2024-08-10 05:24:00 2024-08-10 15:10:00 Emergency Emergency WENDI MONTAÑO [facility] General Medicine [id number] [facility] 2024-08-10 05:24:00 2024-08-10 15:10:00 Emergency Brooklynn Paige Shabana [facility] 1.2840.114 350.1.13.70 8.2.7.2.[id number] [facility] 2024-08-10 00:00:00 2024-08-10 06:02:27 Orders Only System, Provider Not In [facility] 1.2.840.114 350.1.13.70 8.2.7.2.686 [id number] Memoria l Miky [facility] 2024-04-14 11:30:00 2024-04-14 11:30:00 Outpatient GUSTAVO DELANEY CYNTHIA [id number] [facility]thia [facility] 2024-04-02 20:43:00 2024-04-03 00:56:00 Emergency X CHRISSY MOHR TIMOTHY [facility] [id number] [facility] 2024-04-02 20:43:00 2024-04-03 00:56:00 Emergency Chrissy Mohr [facility] 1..840.114 350.1.13.10 4.2.7.2.686 [id number] [facility] 2024-03-08 00:00:00 2024-03-08 00:00:00 Outpatient MD CYNTHIA MARLEY [id number] [facility] 2024-01-14 00:00:00 2024-02-20 18:26:15 Patient Secure Msg Doctor Unassigned, [place] [facility] ..840.114 350.1.13.10 4.2.7.2.686 [id number] [facility] 2024-02-19 00:00:00 2024-02-19 00:00:00 Outpatient GUSTAVO DELANEY CYNTHIA MTZ [id number] Cynthia [facility] 2024-02-16 10:15:00 2024-02-16 10:15:00 Outpatient SALLYMORALES HIGHTOWER [id number] [facility] 2024-01-13 00:00:00 2024-02-13 18:19:27 Patient Secure Msg Doctor Unassigned, [place] [facility] ..840.114 350.1.13.10 4.2.7.2.686 [id number] [facility] 2024-01-12 22:04:00 2024-01-13 00:00:00 Emergency X DENNISUT, RADHA DIANA WYATTNT [facility] [id number] [facility] 2024-01-12 22:04:00 2024-01-13 00:00:00 Emergency Radha Wyatt [facility] 1.2.840.114 350.1.13.10 4.2.7.2.686 [id number] [facility] 2024-01-12 00:00:00 2024-01-12 16:22:23 Transition of Care Veronique Carrillo [facility] 1.2.840.114 350.1.13.10 4.2.7.2.686 [id number] [facility] 2024-01-09 16:11:00 2024-01-10 15:56:00 Outpatient X DARRICK FRY [facility] [id number] [facility] 2024-01-09 16:11:00 2024-01-10 15:56:00 Hospital Encounter Olena Doyle K Paige Khan, Mohammad A. [facility] 1.2.840.114 350.1.13.10 4.2.7.2.686 [id number] [facility] 2023-12-17 00:00:00 2023-12-17 00:00:00 Transition of Care Jodi Berg [facility] 1.2.840.114 350.1.13.10 4.2.7.2.686 [id number] [facility] 2023-12-14 13:34:00 2023-12-15 11:08:00 Outpatient X TAL [facility] [id number] [facility] 2023-12-14 13:34:00 2023-12-15 11:08:00 [facility] 1.2.840.114 350.1.13.10 4.2.7.2.686 [id number] [facility] 2023-12-07 00:00:00 2023-12-07 00:00:00 Outpatient GUSTAVO DELANEY [id number] Cynthia Sevaldo 2023-12-02 13:05:00 2023-12-03 19:00:00 Outpatient X NIMO ALDANe [facility] [id number] [facility] 2023-12-02 13:05:00 2023-12-03 19:00:00 Hospital Encounter Connor Renee Wissam Ibrahim [facility] 1.2840.114 350.1.13.10 4.2.7.2.686 [id number] [facility] 2023-12-01 00:00:00 2023-12-01 10:40:26 Transition of Care Madeline Mckinley 1.2.840.114 350.1.13.10 4.2.7.2.686 [id number] [facility] 2023-11-30 00:00:00 2023-11-30 10:41:56 Transition of Care MckinleyMadeline guthrie [facility] PLACHRIST[facility] 1.2.840.114 350.1.13.10 4.2.7.2.686 [id number] [facility] 2023-11-21 21:12:00 2023-11-28 16:01:00 Inpatient X MADELINE PIERRE AMER [facility] [id number] [facility] 2023-11-21 21:12:00 2023-11-28 16:01:00 Hospital Encounter Madeline Pierre Donnell Khan, Rizwan Al Hemyari, Ryder Davis [facility] 1.2.840.114 350.1.13.10 4.2.7.2.686 [id number] [facility] 2023-11-26 14:15:00 2023-11-26 14:15:00 Outpatient AARON LEDESMA CYNTHIA MTZ [id number] [facility]thia [facility] 2023-11-23 13:45:00 2023-11-23 14:45:00 Surgery Cris Molina [facility] 1.2.840.114 350.1.13.10 4.2.7.2.686 [id number] [facility] 2023-11-18 00:00:00 2023-11-18 00:00:00 Outpatient EFRA BABCOCK [id number] [facility]thia [facility] 2023-11-15 00:00:00 2023-11-15 00:00:00 Outpatient CYNTHIA MTZ [id number] [facility] 2023-11-15 00:00:00 2023-11-15 00:00:00 Outpatient CYNTHIA MTZ [id number] [facility] 2023-11-15 00:00:00 2023-11-15 00:00:00 Outpatient CYNTHIA MTZ [id number] [facility] 2023-11-12 15:15:00 2023-11-12 15:15:00 Outpatient GUSTAVO DELANEY [id number] [facility] 2023-11-12 00:00:00 2023-11-12 00:00:00 Outpatient CYNTHIA MTZ [id number] [facility] 2023-11-10 09:30:00 2023-11-10 09:30:00 Outpatient MYLA LIEBERMAN [id number] [facility] 2023-11-09 00:00:00 2023-11-09 00:00:00 Outpatient MYLA LIEBERMAN [id number] [facility] 2023-11-09 00:00:00 2023-11-09 00:00:00 Outpatient GUSTAVO DELANEY [id number] [facility] 2023-11-07 17:51:00 2023-11-07 22:04:00 Emergency ER JUANY [facility] [id number] [facility] 2023-11-07 17:51:00 2023-11-07 22:04:00 emergency [facility] [id number] [id number] 2023-11-05 00:00:00 2023-11-05 00:00:00 Outpatient TIFFANY PUENTE [id number] [facility] 2023-11-03 00:00:00 2023-11-03 00:00:00 Outpatient CYNTHIA MTZ [id number] [facility]thia [facility] 2023-10-29 00:00:00 2023-10-29 00:00:00 Outpatient GUSTAVO DELANEY [id number] [facility] 2023-10-26 00:00:00 2023-10-26 00:00:00 Outpatient EFRA BABCOCK [id number] [facility] 2023-10-22 00:00:00 2023-10-22 00:00:00 Outpatient GUSTAVO DELANEY [id number] [facility] 2023-10-16 11:10:00 2023-10-16 11:10:00 Outpatient SIDDHARTH STANFORD [id number] [facility] 2023-10-15 00:00:00 2023-10-15 00:00:00 Outpatient MD CYNTHIA MARLEY [id number] [facility] 2023-10-15 00:00:00 2023-10-15 00:00:00 Outpatient MARGOT GUILLEN [id number] [facility] 2023-10-15 00:00:00 2023-10-15 00:00:00 Outpatient MARGOT GUILLEN [id number] [facility] 2023-10-06 10:45:00 2023-10-06 10:45:00 Outpatient SARAI JULES [id number] [facility] 2023-10-05 11:30:00 2023-10-05 11:30:00 Outpatient PREZAS, GUSTAVO MTZ CYNTHIA [id number] Cynthia [facility] 2023-10-01 00:00:00 2023-10-01 00:00:00 Outpatient PREZAS, GUSTAVO MTZ CYNTHIA [id number] Cynthia [facility] 2023-09-30 14:15:00 2023-09-30 14:15:00 Outpatient PREZAS, GUSTAVO MTZ CYNTHIA [id number] Cynthia [facility] 2023-09-24 00:00:00 2023-09-24 00:00:00 Outpatient PREZAS, GUSTAVO MTZ CYNTHIA [id number] Cynthia [facility] 2023-09-23 00:00:00 2023-09-23 00:00:00 Outpatient PROVIDERTIFFANY [id number] [facility] 2023-09-22 00:00:00 2023-09-22 00:00:00 Outpatient PREZAS, GUSTAVO MTZ CYNTHIA [id number] [facility] 2023-09-22 00:00:00 2023-09-22 00:00:00 Outpatient MARGOT GUILLEN CYNTHIA CYNTHIA [id number] Cynthia [facility] 2023-09-16 00:00:00 2023-09-16 00:00:00 Outpatient PREZAS, GUSTAVO MTZ CYNTHIA [id number] Cynthia [facility] 2023-09-16 00:00:00 2023-09-16 00:00:00 Outpatient PREZAS, GUSTAVO MTZ CYNTHIA [id number] Cynthia [facility] 2023-09-16 00:00:00 2023-09-16 00:00:00 Outpatient PREZAS, GUSTAVO MTZ CYNTHIA [id number] Cynthia [facility] 2023-09-14 00:00:00 2023-09-14 00:00:00 Outpatient MARGOT GUILLEN CYNTHIA MTZ [id number] [facility]thia [facility] 2023-09-14 00:00:00 2023-09-14 00:00:00 Outpatient GUILLENMARGOT PIERCE CYNTHIA MTZ [id number] Cynthia [facility] 2023-09-11 11:00:00 2023-09-11 11:00:00 Outpatient YONATAN LORENZO CYNTHIA MTZ [id number] [facility] 2023-09-09 00:00:00 2023-09-09 00:00:00 Outpatient CYNTHIA MTZ [id number] [facility] 2023-09-04 00:14:00 2023-09-08 10:51:00 Inpatient ER EDWARD FARRELL DEISI Neurosurger y [id number] [facility] 2023-09-04 00:14:00 2023-09-08 10:51:00 Hospital Encounter ER London Loyola, Pankaj FryEdward Maria [facility] [id number] [facility] 2023-09-07 18:41:43 2023-09-07 18:41:43 Outpatient EDWARD MANE [facility] [id number] [facility] 2023-09-03 20:52:00 2023-09-03 23:44:00 Emergency ER JUANY [facility] [id number] [facility] 2023-09-03 20:52:00 2023-09-03 23:44:00 emergency [facility] [id number] 2023-09-02 00:00:00 2023-09-02 00:00:00 Outpatient TIFFANY PUENTE [id number] [facility] 2023-09-01 15:30:00 2023-09-01 15:30:00 Outpatient DEMETRIUS TOBAR [id number] [facility] 2023-08-19 00:00:00 2023-08-19 00:00:00 [facility] [id number] [facility] 2023-08-13 00:00:00 2023-08-13 13:44:39 Orders Only Quin Scruggs [facility] [id number] [facility] 2023-08-12 13:49:00 2023-08-12 16:12:00 Emergency X MJ BRYAN [facility] ERT [id number] [facility] 2023-08-12 13:49:00 2023-08-12 16:12:00 Emergency Mj Bryan [facility] 1.2.840.114 350.1.13.10 4.2.7.2.686 [id number] [facility] 2023-06-15 00:00:00 2023-06-18 10:20:39 Orders Only Provider, Not In System [facility] [id number] [facility] 2023-06-13 03:43:00 2023-06-16 19:45:00 Inpatient ER AYDEE GO [facility] Internal Med [id number] [facility] 2023-06-13 03:43:00 2023-06-16 19:45:00 Hospital Encounter ER Marianela Collazo Sahar [facility] [id number] [facility] 2023-06-13 16:30:06 2023-06-13 16:30:06 Outpatient AYDEE DICKENS [facility] [id number] [facility] 2023-06-13 00:00:00 2023-06-13 00:00:00 Orders Only [facility] [id number] [facility] 2023-06-13 00:00:00 2023-06-13 00:00:00 Travel [facility] [id number] [facility] 2023-06-12 00:00:00 2023-06-12 00:00:00 Telephone Dallas Gomez [facility] [id number] [facility] 2023-05-28 06:45:00 2023-06-04 17:36:00 Inpatient ADAM ROYAL [facility] Surgery [id number] [facility] 2023-05-28 06:45:00 2023-06-04 17:36:00 Hospital Encounter Adam Royal [facility] [id number] [facility] 2023-06-01 09:10:00 2023-06-01 13:00:00 Anesthesia Event Harry Newsome Mujtaba [facility] [id number] [facility] 2023-06-01 09:00:00 2023-06-01 11:30:00 Surgery Adam Garcia [facility] [id number] [facility] 2023-06-01 09:47:57 2023-06-01 09:47:[address] [facility] [id number] [facility] 2023-06-01 09:40:34 2023-06-01 09:40:[address] [facility] [id number] [facility] 2023-05-31 09:25:55 2023-05-31 23:59:[address] [facility] [id number] [facility] 2023-05-31 09:00:00 2023-05-31 23:59:00 Hospital Encounter Adam Garcia [facility] [id number] [facility] 2023-05-28 18:15:29 2023-05-28 18:15:[address] [facility] [id number] [facility] 2023-05-28 08:30:00 2023-05-28 11:54:00 Anesthesia Event Yue Bui [facility] [id number] [facility] 2023-05-28 11:41:14 2023-05-28 11:41:[address] [facility] [id number] [facility] 2023-05-28 08:30:00 2023-05-28 11:00:00 Surgery Adam Garcia [facility] [id number] [facility] 2023-05-28 10:00:47 2023-05-28 10:00:[address] [facility] [id number] [facility] 2023-05-28 00:00:00 2023-05-28 00:00:00 Travel [facility] [id number] [facility] 2023-05-26 09:00:00 2023-05-26 09:00:00 Hospital Encounter Adam Garcia [facility] [id number] [facility] 2023-05-26 00:00:00 2023-05-26 00:00:00 Outpatient EL ADAM GARCIA [facility] [id number] [facility] 2023-05-26 00:00:00 2023-05-26 00:00:00 Outpatient EL SLE SLE [id number] [facility] 2023-05-26 00:00:00 2023-05-26 00:00:00 Travel [facility] [id number] [facility] 2023-05-13 11:43:03 2023-05-13 11:43:03 Outpatient [facility] [id number] Adria Martínez 2023-05-12 00:00:00 2023-05-12 00:00:00 Orders Only Adam Garcia [facility] [id number] [facility] 2023-05-08 14:11:21 2023-05-08 14:11:21 Outpatient SFA [facility] [id number] Adria Martínez 2023-03-29 19:25:00 2023-04-02 20:48:00 Inpatient ER THOMAS LOZOYA Neurology [id number] [facility] 2023-03-29 19:25:00 2023-04-02 20:48:00 Hospital Encounter ER Connie Davey Shireen Kulkarni, Mrinalamanda Reddy [facility] [id number] [facility] 2023-03-31 08:32:56 2023-03-31 00:00:00 Inpatient ER MARIAH ALDRIDGE SLEH SLE [id number] [facility] 2023-03-30 10:24:12 2023-03-30 23:59:00 Outpatient ER CONNIE DAVEY SLERigoberto SLEH [id number] [facility] 2023-03-30 09:40:00 2023-03-30 23:59:00 Hospital Encounter Connie Davey [facility] [id number] [facility] 2023-03-30 13:46:20 2023-03-30 13:46:20 [facility] [id number] [facility] 2023-03-30 13:46:14 2023-03-30 13:46:14 Outpatient ER [facility]IAH [facility]DRIDGE [facility] [id number] [facility] 2023-03-30 10:24:04 2023-03-30 10:24:04 Outpatient ER CONNIE DAVEY [facility] [id number] [facility] 2023-03-30 00:00:00 2023-03-30 00:00:00 Orders Only [facility] [id number] [facility] 2023-03-30 00:00:00 2023-03-30 00:00:00 Travel [facility] [id number] [facility] 2022-12-11 08:56:00 2022-12-11 15:29:00 Emergency X Alfonso ALVARADO [facility] ERT [id number] [facility] 2022-12-11 08:56:00 2022-12-11 15:29:00 Emergency Alfonso Alvarado [facility] 1.2.840.114 350.1.13.10 4.2.7.2.686 [id number] [facility] 2022-11-17 17:25:00 2022-11-18 01:19:00 Emergency X RITCHIE MOTTA [facility] ERT [id number] [facility] 2022-11-17 17:25:00 2022-11-18 01:19:00 Emergency Ritchie Motta [facility] 1.2.840.114 350.1.13.10 4.2.7.2.686 [id number] [facility] 2022-08-28 00:00:00 2022-08-28 00:00:00 Patient Outreach Margot Beckman 1.2.840.114 350.1.13.10 4.2.7.2.686 [id number] [facility] 2022-08-20 00:00:00 2022-08-20 00:00:00 Patient Outreach Margot Beckman 1.2.840.114 350.1.13.10 4.2.7.2.686 [id number] [facility] 2022-08-02 17:30:00 2022-08-03 14:29:00 Outpatient ER PARRISH WHEATLEY [facility] Neurology [id number] [facility] 2022-08-02 17:30:00 2022-08-03 14:29:00 Hospital Encounter Halima Guan Kinjal M Ibe, Chimkama Ngozi Cynthia [facility] [id number] [facility] 2022-08-03 00:00:00 2022-08-03 00:00:00 Orders Only [facility] [id number] [facility] 2022-08-02 00:00:00 2022-08-02 00:00:00 Travel [facility] [id number] [facility] 2022-07-31 11:42:00 2022-08-01 21:48:00 Inpatient Valeria DAMI [facility] [id number] [facility] 2022-07-31 11:42:00 2022-08-01 21:48:00 Hospital Encounter Megan Rondon Yaman [facility] 1.2.840.114 350.1.13.10 4.2.7.2.686 [id number] [facility] 2022-08-01 00:00:00 2022-08-01 00:00:00 Transition of Care NicoleMaria Teresa pachecoJono MAGUIRECHRISTIAN 1.2.840.114 350.1.13.10 4.2.7.2.686 [id number] [facility] 2022-07-28 14:41:38 2022-07-28 14:41:38 Outpatient [facility] 0109 Adria Martínez 2022-07-28 00:00:00 2022-07-28 00:00:00 Outpatient Visit [id number] 2022-07-24 13:24:40 2022-07-24 13:24:40 Outpatient [facility] 0105 Adria Martínez 2022-05-23 14:51:01 2022-05-23 14:51:01 Outpatient [facility] 1104 Adria Martínez 2022-05-23 00:00:00 2022-05-23 00:00:00 Outpatient Visit [id number] 7850ee 2022-05-04 20:22:00 2022-05-08 14:44:00 [facility] [id number] [facility] 2022-05-04 20:22:00 2022-05-08 14:44:00 Emergency JonorBrandyn [facility] 1.2.840.114 350.1.13.10 4.2.7.2.686 [id number] [facility] 2022-04-13 13:06:00 2022-04-15 15:00:00 Inpatient X CONRAD SELINA [facility] BERNARDINO [id number] [facility] 2022-04-13 13:06:00 2022-04-15 15:00:00 Hospital Encounter Sapna Vargas Muhammad Zeeshan Chhabra [facility] 1.2.840.114 350.1.13.10 4.2.7.2.686 [id number] [facility] 2022-02-19 10:20:00 2022-02-19 10:30:00 Imm/Inj Visit Vaccine, [place] Dangelo Pak [facility] 1.2.840.114 350.1.13.10 4.2.7.2.686 [id number] [facility] 2022-02-19 10:20:00 2022-02-19 10:20:00 Outpatient JOSE MENDOZA [facility] [id number] [facility] 2021-11-23 15:07:00 2021-11-23 17:03:00 Emergency WILLIAMS BRADY [facility] ERT [id number] [facility] 2021-11-23 15:07:00 2021-11-23 17:03:00 Emergency Megan Rondon Folusho F [facility] 1.2840.114 350.1.13.10 4.2.7.2.686 [id number] [facility] 2021-11-21 09:40:00 2021-11-21 09:40:00 Outpatient R [facility] [id number] [facility] 2021-05-24 09:30:00 2021-05-24 09:30:00 Outpatient R JOSE PAK [facility] [id number] [facility] 2021-05-24 08:47:51 2021-05-24 08:57:51 Imm/Inj Visit Vaccine, [place] Dangelo Pak [facility] 1.2.840.114 350.1.13.10 4.2.7.2.686 [id number] [facility] 2021-05-03 09:40:00 2021-05-03 09:59:35 Outpatient JOSE MENDOZA [facility] [id number] [facility] 2021-05-03 09:17:43 2021-05-03 09:59:35 Imm/Inj Visit Santos, [place] Collettetristan Jose Pak [facility] 1.2.840.114 350.1.13.10 4.2.7.2.686 [id number] [facility] 2021-04-16 00:00:00 2021-04-16 00:00:00 Orders Only Doctor Unassigned, [place] [facility] 1.2.840.114 350.1.13.10 4.2.7.2.686 [id number] [facility] 2021-03-17 00:00:00 2021-03-17 00:00:00 Telephone Miky Nava [facility] 1.2.840.114 350.1.13.10 4.2.7.2.686 [id number] [facility] 2021-03-16 20:08:00 2021-03-16 23:24:00 Emergency Fabrice Chakraborty [facility] 1.2.840.114 350.1.13.10 4.2.7.2.686 [id number] [facility] 2021-03-14 18:59:34 2021-03-14 20:19:13 Urgent Care Lydia Desouza, Attending [facility] 1.2.840.114 350.1.13.10 4.2.7.2.686 [id number] [facility] 2021-03-14 19:00:00 2021-03-14 19:00:00 Outpatient R UNKNOWN, ATTENDING [facility] [id number] [facility] 2021-02-19 10:49:00 2021-02-19 14:48:00 Emergency Estefania Monroy [facility] 1.2.840.114 350.1.13.10 4.2.7.2.686 [id number] [facility] 2019-03-09 00:00:00 2019-03-09 00:00:00 Yehuda Zimmerman [facility] 1.2.840.114 350.1.13.10 4.2.7.2.686 [id number] [facility] 2019-03-09 00:00:00 2019-03-09 00:00:00 Yehuda Zimmerman [facility] 1.2.840.114 350.1.13.10 4.2.7.2.686 [id number] Results Test Description Test Time Test Comments Results Result Co [id number] 02:35:03* Test Item Value Reference Range Interpretation Comme nts NT-proBNP (test code = 17877-6) 2090 pg/mL <=125 H LYNDSAY (test code = LYNDSAY) Positive: Heart Failure Likely Lab Interpretation (test code = 56319-9) Abnormal [facility] Metabolic Panel (NA, K, CL, CO2, GLUCOSE, BUN, CREATININE, CA)2024-04-03 02:26:01* Test Item Value Reference Range Interpretation Comme [facility] NA (test code = 6164302701) 136 mmol/L 135-145 K (test code = 3459729012) 3.2 mmol/L 3.5-5.0 L CL (test code = 8355982750) 101 mmol/L 98-108 CO2 TOTAL (test code = 5388245705) 23 mmol/L 23-31 AGAP (test code = 2757761397) 12 2-16 BUN (test code = 7194942697) 4 mg/dL 7-23 L GLUCOSE (test code = 5580956284) 165 mg/dL 70-110 H CREATININE (test code = 2160-0) 0.67 mg/dL 0.50-1.04 CALCIUM (test code = 5912356470) 8.5 mg/dL 8.6-10.6 L eGFR (test code = 28426-6) 105.3 mL/min/1.73m2 CKD-EPI eGFR (2020). Assuming creatinine has been stable day-to-day for at least three months, the eGFR indicates Category G1 (>= 90 mL/min/1.73 m2) Lab Interpretation (test code = 16650-7) Abnormal [facility] with [id number] 02:19:04* Test Item Value Reference Range Interpretation [...] g/dL 31.6-35.1 L RDW-SD (test code = 95592-4) 53.9 fL 39.0-49.9 H RDW-CV (test code = 788-0) 18.2 % 12.0-15.5 H PLT (test code = 777-3) 458 166-358 H MPV (test code = 50576-5) 8.6 fL 9.5-12.9 L NRBC/100 WBC (test code = 8911709513) 0.0 0.0-10.0 NRBC x10^3 (test code = 5864267265) See_Comment [Automated MyPronostica ge] The system which generated this result transmitted reference range: 10*3/?L. The reference range was not used to interpret this result as normal/abnormal. GRAN MAT (NEUT) % (test code = 770-8) 62.8 % IMM GRAN % (test code = 6520853772) 0.40 % LYMPH % (test code = 736-9) 28.0 % MONO % (test code = 5905-5) 6.5 % EOS % (test code = 713-8) 1.3 % BASO % (test code = 706-2) 1.0 % GRAN MAT x10^3(ANC) (test code = 3310119748) 4.36 10*3/uL 1.88-7.09 IMM GRAN x10^3 (test code = 9138036658) 0.03 10*3/uL 0.00-0.06 LYMPH x10^3 (test code = 731-0) 1.94 10*3/uL 1.32-3.29 MONO x10^3 (test code = 742-7) 0.45 10*3/uL 0.33-0.92 EOS x10^3 (test code = 711-2) 0.09 10*3/uL 0.03-0.39 BASO x10^3 (test code = 704-7) 0.07 10*3/uL 0.01-0.07 Lab Interpretation (test code = 62430-7) [facility] [id number] 02:05:20* Test Item Value Reference Range Interpretation Comme nts LACTIC ACID (test code = 4802742068) 2.61 mmol/L 0.50-2.20 H Lab Interpretation (test cod e = 89097-0) Abnormal [facility] [id number] 04:25:23* Test Item Value Reference Range Interpretation Comme nts TROPONIN I (test code = 5360682632) 0.004 ng/mL <=0.034 LYNDSAY (test code = [...] of biotin. Lab Interpretation (test code = 06543-9) Normal [facility] (34001)2024-01-13 04:13:41* Test Item Value Reference Range Interpretation Comme nts NA (test code = 6532676931) 140 mmol/L 135-145 K (test code = 8319742298) 3.7 mmol/L 3.5-5.0 CL (test code = 3414320506) 103 mmol/L 98-108 CO2 TOTAL (test code = 8655345411) 25 mmol/L 23-31 AGAP (test code = 2189503662) 12 2-16 BUN (test code = 9569881246) 12 mg/dL 7-23 GLUCOSE (test code = 5837380837) 143 mg/dL 70-110 H CREATININE (test code = 2160-0) 0.91 mg/dL 0.50-1.04 TOTAL BILI (test code = 5405489788) 0.4 mg/dL 0.1-1.1 CALCIUM (test code = 5669686699) 9.0 mg/dL 8.6-10.6 T PROTEIN (test code = 2957273943) 7.7 g/dL 6.3-8.2 ALBUMIN (test code = 0314810471) 4.2 g/dL 3.5-5.0 ALK PHOS (test code = 9655215101) 93 U/L 34-122 ALTv (test code = 1742-6) 9 U/L 5-35 AST(SGOT) (test code = 1893096490) 18 U/L 13-40 eGFR (test code = 37391-1) 76.5 mL/min/1.73m2 CKD-EPI eGFR (2020). Assuming creatinine has been stable day-to-day for at least three months, the eGFR indicates Category G2 (60 - 89 mL/min/1.73 m2) Lab Interpretation (test code = 38631-6) [facility]normal [facility] with Geqb5757-05-21 03:58:19* Test Item Value Reference Range Interpretation [...] g/dL 31.6-35.1 L RDW-SD (test code = 70696-1) 59.0 fL 39.0-49.9 H RDW-CV (test code = 788-0) 18.7 % 12.0-15.5 H PLT (test code = 777-3) 394 166-358 H MPV (test code = 14170-2) 8.5 fL 9.5-12.9 L NRBC/100 WBC (test code = 3299536108) 0.0 0.0-10.0 NRBC x10^3 (test code = 8255909037) See_Comment [Automated messa ge] The system which generated this result transmitted reference range: 10*3/?L. The reference range was not used to interpret this result as normal/abnormal. GRAN MAT (NEUT) % (test code = 770-8) 60.6 % IMM GRAN % (test code = 2038108549) 1.40 % LYMPH % (test code = 736-9) 26.9 % MONO % (test code = 5905-5) 8.7 % EOS % (test code = 713-8) 1.8 % BASO % (test code = 706-2) 0.6 % GRAN MAT x10^3(ANC) (test code = 8734931496) 5.14 10*3/uL 1.88-7.09 IMM GRAN x10^3 (test code = 6205584626) 0.12 10*3/uL 0.00-0.06 H LYMPH x10^3 (test code = 731-0) 2.28 10*3/uL 1.32-3.29 MONO x10^3 (test code = 742-7) 0.74 10*3/uL 0.33-0.92 EOS x10^3 (test code = 711-2) 0.15 10*3/uL 0.03-0.39 BASO x10^3 (test code = 704-7) 0.05 10*3/uL 0.01-0.07 Lab Interpretation (test code = 75842-4) Abnormal [facility]E)2024-01-10 16:40:03* Test Item Value Reference Range Interpretation Comme nts Height (test code = 1008560286) 62 in Weight (test code = 8431178847) 200 lbs Systolic BP (test code = 5971005587) 90 mmHg Diastolic BP (test code = 7870740434) 66 mmHg Heart Rate (test code = 4400715747) 69 bpm BSA (test code = 3682502480) 1.91 m2 LVOT diameter (test code = 4213558021) 2.13 cm LVOT area (test code = 0083863565) 3.60 cm2 LA size (test code = 0301945740) 3.5 cm LAV(MOD-sp4) (test code = 3463603206) 55.70 mL E wave decelartion time (test code = 2735018554) 0.12 s MV stenosis pressure 1/2 time (test code = 1104863814) 35.0 ms MV Peak A Evette (test code = 6432591566) 117.0 cm/s MV Peak E Evette (test code = 5671094296) 94.3 cm/s E/A ratio (test code = 7193692332) 0.81 ratio MV E/e' septal (test code = 3822480012) 10.2 cm/s LVOT stroke volume (test code = 0133283253) 59.50 cm3 LVOT peak evette (test code = 8253452758) 99.8 cm/s LVOT mn grad (test code = 9742151114) 1.9 mmHg AV LVOT peak gradient (test code = 1493011907) 4.0 mmHg LVOT peak VTI (test code = 6910750493) 16.7 cm LV V1 mean (test code = 7854580867) 64.40 cm/s Aortic valve mean velocity (test code = 7845652918) 155.3 cm/s Ao peak evette (test code = 7223636156) 222.6 cm/s Ao VTI (test code = 7680081991) 33.6 cm AV area by cont VTI (test code = 5323006392) 1.8 cm2 AV area peak evette (test code = 5865693538) 1.6 cm2 Ao max PG (test code = 3398085239) 19.80 mm[Hg] AV peak gradient (test code = 6349940325) 19.8 mmHg AV valve area (test code = 4384052401) 1.77 cm2 AV mean gradient (test code = 2153926704) 10.6 mmHg AV regurgitation pressure 1/2 time (test code = 7862091852) 651.6 ms AI dec slope (test code = 8769538917) 180.60 cm/s2 AI max evette (test code = 8641936210) 401.80 cm/s AI max PG (test code = 5373520580) 64.60 mm[Hg] LVIDD (test code = 0232885188) 4.90 cm Left Ventricular End Diastolic Volume by Teichholz Method (test code = 7861693) 114.6 mL IVS (test code = 1372630001) 1.17 cm Interventricular Septum Diastolic Thickness by 2D (test code = 5601848) 1.17 cm LVPWD (test code = 9922491887) 1.17 cm PW (test code = 6563192163) 1.17 cm 0.6-1.1 EF(Teich) (test code = 8400848794) 20.70 % LVIDS (test code = 5375777560) 4.50 cm Left Ventricular End Systolic Volume by Teichholz Method (test code = 2253048) 90.9 mL FS (test code = 5717707507) 9 % EF - 2D (test code = 33360982) 20.70 % Radiology Study observation (narrative) (test code = 82333-5) LYNDSAY (test code = LYNDSAY) ?Left?Ventricle: Left [...] mL of Optison ultrasound enhancing agent used. [facility] Whole [id number] 02:02:28* Test Item Value Reference Range Interpretation Comme nts LACTIC ACID (test code = 7244158089) 1.36 mmol/L 0.50-2.20 Lab Interpretation (test cod e = 37541-6) Normal [facility]MON[facility] [id number] 01:16:45CTA CHEST WITH IV CONTRAST ORDERING PHYSICIAN: OLENA DOYLE HISTORY: Pulmonary emboli suspected, elevated d-dimer COMPARISON: [...] adenoma. ACDF hardware in the lower cervical spine.[facility]anoXR CHEST 1 [id number] 23:07:58Exam: Chest (1 View), 01/09/2024 4:15 PM. Ordering Physician: OLENA DOYLE. History: Chest Pain. Technique: One view of the chest. Comparison: 12/14/2023. Findings: Cardiac silhouette is mildly enlarged. There is no pneumothorax. There isno consolidation or pleural effusion. Pleural and diaphragmatic contoursare normal. Calcified granuloma is seen in the left upper lobe. Changes ofanterior cervical discectomy and fusion are seen.[facility]anoTROPONIN [id number] 22:51:19* Test Item Value Reference Range Interpretation Comme nts TROPONIN I (test code = 8136688364) 0.006 ng/mL <=0.034 LYNDSAY (test code = [...] of biotin. Lab Interpretation (test code = 39843-3) Normal [facility]ano[facility]-TERMINAL [id number] 22:48:38* Test Item Value Reference Range Interpretation Comme nts NT-proBNP (test code = 24890-1) 877 pg/mL <=125 LYNDSAY (test code = LYNDSAY) Result Indeterminate-Consid er causes of NT-proBNP elevation other than Heart failure such as acute coronary syndrome, pulmonary embolism, pulmonary hypertension, sepsis, stroke, and renal dysfunction. Lab Interpretation (test code = 73094-0) [facility]normal [facility] (71113)2024-01-09 22:42:20* Test Item Value Reference Range Interpretation Comme nts NA (test code = 1516124457) 137 mmol/L 135-145 K (test code = 9966724384) 3.8 mmol/L 3.5-5.0 CL (test code = 7779206066) 104 mmol/L 98-108 CO2 TOTAL (test code = 6743908849) 25 mmol/L 23-31 AGAP (test code = 8631181773) 8 2-16 BUN (test code = 4998855236) 7 mg/dL 7-23 GLUCOSE (test code = 4439154655) 96 mg/dL 70-110 CREATININE (test code = 2160-0) 0.60 mg/dL 0.50-1.04 TOTAL BILI (test code = 5783153649) 0.4 mg/dL 0.1-1.1 CALCIUM (test code = 5408773424) 8.7 mg/dL 8.6-10.6 T PROTEIN (test code = 7603459910) 7.0 g/dL 6.3-8.2 ALBUMIN (test code = 0067682274) 3.9 g/dL 3.5-5.0 ALK PHOS (test code = 9259059200) 101 U/L 34-122 ALTv (test code = 1742-6) 7 U/L 5-35 AST(SGOT) (test code = 6751982481) 20 U/L 13-40 eGFR (test code = 03173-2) 108.8 mL/min/1.73m2 CKD-EPI eGFR (20 21). Assuming creatinine has been stable day-to-day for at least three months, the eGFR indicates Category G1 (>= 90 mL/min/1.73 m2) [facility]anoD-[id number] 22:28:57* Test Item Value Reference Range Interpretation Comments D-DIMER (test code = 2083264373) 0.87 See_Comment H [Automated message] The system [...] a diagnosis. Lab Interpretation (test code = 45552-7) Abnormal [facility] WITH [id number] 22:09:01* Test Item Value Reference Range Interpretation [...] g/dL 31.6-35.1 L RDW-SD (test code = 04650-0) 58.1 fL 39.0-49.9 H RDW-CV (test code = 788-0) 18.6 % 12.0-15.5 H PLT (test code = 777-3) 312 166-358 MPV (test code = 43680-1) 8.3 fL 9.5-12.9 L NRBC/100 WBC (test code = 3161737244) 0.0 0.0-10.0 NRBC x10^3 (test code = 3108535894) See_Comment [Automated MyPronostica ge] The system which generated this result transmitted reference range: 10*3/?L. The reference range was not used to interpret this result as normal/abnormal. GRAN MAT (NEUT) % (test code = 770-8) 60.1 % IMM GRAN % (test code = 3834264482) 0.70 % LYMPH % (test code = 736-9) 27.3 % MONO % (test code = 5905-5) 10.1 % EOS % (test code = 713-8) 1.2 % BASO % (test code = 706-2) 0.6 % GRAN MAT x10^3(ANC) (test code = 0818182467) 5.12 10*3/uL 1.88-7.09 IMM GRAN x10^3 (test code = 3331691670) 0.06 10*3/uL 0.00-0.06 LYMPH x10^3 (test code = 731-0) 2.33 10*3/uL 1.32-3.29 MONO x10^3 (test code = 742-7) 0.86 10*3/uL 0.33-0.92 EOS x10^3 (test code = 711-2) 0.10 10*3/uL 0.03-0.39 BASO x10^3 (test code = 704-7) 0.05 10*3/uL 0.01-0.07 Lab Interpretation (test code = 03114-8) Abnormal [facility] GLUCOSE (AUTOMATED)2023-12-15 12:45:21* Test Item Value Reference Range Interpretation Comme nts POCT GLU (test code = 8953751704) 144 mg/dL 70-110 H Lab Interpretation (test cod e = 41906-2) Abnormal [facility]anoThyroid Stimulating [id number] 01:46:59 * Test Item Value Reference Range Interpretation Comme nts TSH (test code = 5163604625) 1.14 0.45-4.70 Lab Interpretation (test cod e = 07038-3) Normal [facility]anoFR [id number] 01:33:00* Test Item Value Reference Range Interpretation Comme nts FREE T3 (test code = 4838268275) 3.68 pg/mL 2.77-5.27 Lab Interpretation (test cod e = 64632-4) Normal [facility] GLUCOSE (AUTOMATED)2023-12-15 00:57:48* Test Item Value Reference Range Interpretation Comme nts POCT GLU (test code = 4758778014) 131 mg/dL 70-110 H Lab Interpretation (test cod e = 93412-3) Abnormal [facility]anoTroponin [id number] 21:45:52* Test Item Value Reference Range Interpretation Comme nts TROPONIN I (test code = 5156972765) 0.009 ng/mL <=0.034 LYNDSAY (test code = [...] of biotin. Lab Interpretation (test code = 96552-3) Normal [facility] Metabolic Panel (23004)2023-12-14 20:19:49* Test Item Value Reference Range Interpretation Comme nts NA (test code = 1579541314) 138 mmol/L 135-145 K (test code = 4360338989) 3.5 mmol/L 3.5-5.0 CL (test code = 3794333119) 108 mmol/L 98-108 CO2 TOTAL (test code = 6024913098) 24 mmol/L 23-31 AGAP (test code = 3419295176) 6 2-16 BUN (test code = 8020277299) 7 mg/dL 7-23 GLUCOSE (test code = 7423916901) 96 mg/dL 70-110 CREATININE (test code = 2160-0) 0.51 mg/dL 0.50-1.04 TOTAL BILI (test code = 2971455166) 0.4 mg/dL 0.1-1.1 CALCIUM (test code = 5095269703) 8.6 mg/dL 8.6-10.6 T PROTEIN (test code = 4723348201) 6.8 g/dL 6.3-8.2 ALBUMIN (test code = 4905565814) 3.8 g/dL 3.5-5.0 ALK PHOS (test code = 1241655535) 107 U/L 34-122 ALTv (test code = 1742-6) 13 U/L 5-35 AST(SGOT) (test code = 9506558307) 28 U/L 13-40 eGFR (test code = 57791-3) 113.2 mL/min/1.73m2 CKD-EPI eGFR (20 21). Assuming creatinine has been stable day-to-day for at least three months, the eGFR indicates Category G1 (>= 90 mL/min/1.73 m2) [facility]anoTroponin [id number] 20:15:27* Test Item Value Reference Range Interpretation Comme nts TROPONIN I (test code = 2194721542) 0.009 ng/mL <=0.034 LYNDSAY (test code = [...] of biotin. Lab Interpretation (test code = 34123-7) Normal [facility] Aux-[id number] 20:12:51* Test Item Value Reference Range Interpretation Comme nts NT-proBNP (test code = 36237-0) 2250 pg/mL <=125 H LYNDSAY (test code = LYNDSAY) Positive: Heart Failure Likely Lab Interpretation (test code = 94333-8) [facility]normal [facility] 1 [id number] 20:00:17EXAM: XR CHEST 1 VW COMPARISON: 12/02/2023 HISTORY: 53 years-old Female; shortness of breath FINDINGS: Lungs: The lung volumes are normal. Left upper lung calcified granuloma. Nofocal opacities. No pneumothorax. No pleural effusion. Heart/Mediastinum: The cardiac silhouette appears normal. Bones andsoft tissues: No acute osseous findings are detected.Redemonstrated ACDF projecting over the lower cervical spine.[facility]anoD-Feaoe0874-72-00 19:45:05* Test Item Value Reference Range Interpretation Comments D-DIMER (test code = 5876195898) 1.33 See_Comment H [Automated message] The system [...] a diagnosis. Lab Interpretation (test code = 74471-4) [facility]normal [facility]anoCbc with [id number] 19:39:29* Test Item Value Reference Range Interpretation [...] g/dL 31.6-35.1 L RDW-SD (test code = 70888-0) 70.2 fL 39.0-49.9 H RDW-CV (test code = 788-0) 21.6 % 12.0-15.5 H PLT (test code = 777-3) 259 166-358 MPV (test code = 61360-4) 8.7 fL 9.5-12.9 L NRBC/100 WBC (test code = 5917502325) 0.0 0.0-10.0 NRBC x10^3 (test code = 3200826547) See_Comment [Automated messa ge] The system which generated this result transmitted reference range: 10*3/?L. The reference range was not used to interpret this result as normal/abnormal. GRAN MAT (NEUT) % (test code = 770-8) 57.7 % IMM GRAN % (test code = 0441010056) 0.40 % LYMPH % (test code = 736-9) 30.2 % MONO % (test code = 5905-5) 9.9 % EOS % (test code = 713-8) 0.8 % BASO % (test code = 706-2) 1.0 % GRAN MAT x10^3(ANC) (test code = 9819895518) 4.17 10*3/uL 1.88-7.09 IMM GRAN x10^3 (test code = 8838466535) 0.03 10*3/uL 0.00-0.06 LYMPH x10^3 (test code = 731-0) 2.19 10*3/uL 1.32-3.29 MONO x10^3 (test code = 742-7) 0.72 10*3/uL 0.33-0.92 EOS x10^3 (test code = 711-2) 0.06 10*3/uL 0.03-0.39 BASO x10^3 (test code = 704-7) 0.07 10*3/uL 0.01-0.07 Lab Interpretation (test code = 89783-3) [facility]normal [facility]OMATED)2023-12-03 21:30:58* Test Item Value Reference Range Interpretation Comme nts POCT GLU (test code = 6067816215) 102 mg/dL 70-110 Lab Interpretation (test cod e = 85714-8) Normal [facility] Metabolic Panel (NA, K, CL, CO2, GLUCOSE, BUN, CREATININE, CA)2023-12-03 18:22:31* Test Item Value Reference Range Interpretation Comme nts NA (test code = 9663800877) 135 mmol/L 135-145 K (test code = 3246943713) 3.9 mmol/L 3.5-5.0 CL (test code = 7949009500) 103 mmol/L 98-108 CO2 TOTAL (test code = 9412920115) 29 mmol/L 23-31 AGAP (test code = 8632830773) 3 2-16 BUN (test code = 6604447194) 12 mg/dL 7-23 GLUCOSE (test code = 5811402803) 85 mg/dL 70-110 CREATININE (test code = 2160-0) 0.63 mg/dL 0.50-1.04 CALCIUM (test code = 6763342122) 8.7 mg/dL 8.6-10.6 eGFR (test code = 11457-3) 107.6 mL/min/1.73m2 CKD-EPI eGFR (20 21). Assuming creatinine has been stable day-to-day for at least three months, the eGFR indicates Category G1 (>= 90 mL/min/1.73 m2) [facility] GLUCOSE (AUTOMATED)2023-12-03 16:52:56* Test Item Value Reference Range Interpretation Comme nts POCT GLU (test code = 3132491339) 98 mg/dL 70-110 Lab Interpretation (test cod e = 10234-6) Normal [facility] GLUCOSE (AUTOMATED)2023-12-03 13:01:11* Test Item Value Reference Range Interpretation Comme nts POCT GLU (test code = 1769094638) 102 mg/dL 70-110 Lab Interpretation (test cod e = 50385-0) Normal [facility] Metabolic Panel (NA, K, CL, CO2, GLUCOSE, BUN, CREATININE, CA)2023-12-03 10:22:08* Test Item Value Reference Range Interpretation Comme nts NA (test code = 0969317139) 138 mmol/L 135-145 K (test code = 9658630990) 3.2 mmol/L 3.5-5.0 L CL (test code = 6653917525) 105 mmol/L 98-108 CO2 TOTAL (test code = 9984694534) 26 mmol/L 23-31 AGAP (test code = 6652991875) 7 2-16 BUN (test code = 1086869035) 11 mg/dL 7-23 GLUCOSE (test code = 4186737493) 96 mg/dL 70-110 CREATININE (test code = 2160-0) 0.61 mg/dL 0.50-1.04 CALCIUM (test code = 9808365499) 8.6 mg/dL 8.6-10.6 eGFR (test code = 19597-9) 108.4 mL/min/1.73m2 CKD-EPI eGFR (2020). Assuming creatinine has been stable day-to-day for at least three months, the eGFR indicates Category G1 (>= 90 mL/min/1.73 m2) Lab Interpretation (test code = 33254-5) [facility] 10:22:08* Test Item Value Reference Range Interpretation Comme nts MAGNESIUM (test code = 1026286563) 1.9 mg/dL 1.7-2.4 Lab Interpretation (test cod e = 03676-4) Normal [facility]anoHep[facility] (49070) (ALB,T.PRO,BILI T,BU/BC,ALT,AST,ALK PHOS)2023-12-03 10:22:08* Test Item Value Reference Range Interpretation Comme nts TOTAL BILI (test code = 6498849894) 0.5 mg/dL 0.1-1.1 BILI UNCON (test code = 1047542518) 0.2 mg/dL 0.1-1.1 BILI CONJ (test code = 6429970686) 0.0 mg/dL 0.0-0.3 T PROTEIN (test code = 3465102785) 6.7 g/dL 6.3-8.2 ALBUMIN (test code = 6284345792) 3.7 g/dL 3.5-5.0 ALK PHOS (test code = 5623589192) 135 U/L 34-122 H ALTv (test code = 1742-6) 26 U/L 5-35 AST(SGOT) (test code = 0760066313) 24 U/L 13-40 Lab Interpretation (test cod e = 48024-5) [facility] 21 + Lactic Usis9277-84-65 02:00:25* Test Item Value Reference Range Interpretation Comme nts PH (test code = 4757150129) 7.40 7.32-7.42 PCO2 NOEMI (test code = 5383717723) 40 41-51 L PO2 NOEMI (test code = 7004178251) 34 25-40 HCO3 NOEMI (test code = 2292887261) 24 24-28 AC VBE(BEAKER) (test code = 0940877488) -0.8 mEq/L THB NOEMI (test code = 2539655135) 9.3 g/dL 12.0-16.0 L %O2HB NOEMI (test code = 0031039022) 57.9 % 52.0-63.0 %COHB NOEMI (test code = 3802180950) 1.1 % 0.0-1.5 %METHB NOEMI (test code = 4851002261) 0.3 % 0.4-1.5 L VOL%O2 NOEMI (test code = 9079364975) 7.6 % 6.0-12.0 NA (test code = 9742252178) 139 mmol/L 135-145 K+ (test code = 3261661403) 3.5 mmol/L 3.5-5.0 AC CA IONZ (test code = 3518696698) 4.50 mg/dL 4.50-5.30 GLUCOSE (test code = 6367541023) 88 mg/dL 70-110 LACTIC ACID (test code = 3026421576) 1.63 mmol/L 0.50-2.20 QUES Lab Interpretation (test cod e = 27020-1) Abnormal [facility] CHEST PULMONARY [id number] 19:47:28HISTORY: Chest pain, rule out P.E. 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 Lab Interpretation (test code = 08139-2) Normal [facility]-Terminal Uqt-Aar6636-84-15 19:37:29* Test Item Value Reference Range Interpretation Comme nts NT-proBNP (test code = 51755-8) 3420 pg/mL <=125 H LYNDSAY (test code = LYNDSAY) Positive: Heart Failure Likely Lab Interpretation (test code = 60467-9) Abnormal [facility] with Lgwt9587-48-64 19:28:47* Test Item Value Reference Range Interpretation [...] g/dL 31.6-35.1 L RDW-SD (test code = 90732-3) 68.9 fL 39.0-49.9 H RDW-CV (test code = 788-0) 22.6 % 12.0-15.5 H PLT (test code = 777-3) 379 166-358 H MPV (test code = 41539-5) 9.1 fL 9.5-12.9 L NRBC/100 WBC (test code = 0067373929) 0.0 0.0-10.0 NRBC x10^3 (test code = 3100340500) See_Comment [Automated messa ge] The system which generated this result transmitted reference range: 10*3/?L. The reference range was not used to interpret this result as normal/abnormal. GRAN MAT (NEUT) % (test code = 770-8) 73.5 % IMM GRAN % (test code = 0769465364) 1.70 % LYMPH % (test code = 736-9) 14.9 % MONO % (test code = 5905-5) 8.3 % EOS % (test code = 713-8) 1.2 % BASO % (test code = 706-2) 0.4 % GRAN MAT x10^3(ANC) (test code = 2553887688) 8.05 10*3/uL 1.88-7.09 H IMM GRAN x10^3 (test code = 4818172242) 0.19 10*3/uL 0.00-0.06 H LYMPH x10^3 (test code = 731-0) 1.63 10*3/uL 1.32-3.29 MONO x10^3 (test code = 742-7) 0.91 10*3/uL 0.33-0.92 EOS x10^3 (test code = 711-2) 0.13 10*3/uL 0.03-0.39 BASO x10^3 (test code = 704-7) 0.04 10*3/uL 0.01-0.07 Lab Interpretation (test code = 38631-7) [facility]normal [facility]XR CHEST 1 [id number] 19:28:17HISTORY: Dyspnea. TECHNIQUE: Portable AP view of the chest is obtained. Comparison made with11/21/2023 study. FINDINGS: No acute pneumonia. No pneumothorax or pleural effusion orpulmonary congestion detected. Mild cardiomegaly noted. Multilevel lowercervical ACDF surgical changes partially visualized. Mild degenerativechanges noted in the right glenohumeral joint. CONCLUSIONS: Mild cardiomegaly.[facility]. Metabolic Panel (78075) 2023-12-02 19:27:30* Test Item Value Reference Range Interpretation Comme nts NA (test code = 6966631702) 138 mmol/L 135-145 K (test code = 6865972951) 3.8 mmol/L 3.5-5.0 CL (test code = 5969461382) 106 mmol/L 98-108 CO2 TOTAL (test code = 6585690246) 22 mmol/L 23-31 L AGAP (test code = 6890607339) 10 2-16 BUN (test code = 9331881630) 11 mg/dL 7-23 GLUCOSE (test code = 5718444004) 103 mg/dL 70-110 CREATININE (test code = 2160-0) 0.56 mg/dL 0.50-1.04 TOTAL BILI (test code = 7957777118) 0.8 mg/dL 0.1-1.1 CALCIUM (test code = 5959044144) 8.9 mg/dL 8.6-10.6 T PROTEIN (test code = 5387248824) 7.3 g/dL 6.3-8.2 ALBUMIN (test code = 9532474366) 3.9 g/dL 3.5-5.0 ALK PHOS (test code = 3001904502) 147 U/L 34-122 H ALTv (test code = 1742-6) 34 U/L 5-35 AST(SGOT) (test code = 8034201295) 30 U/L 13-40 eGFR (test code = 08749-7) 110.7 mL/min/1.73m2 CKD-EPI eGFR (2020). Assuming creatinine has been stable day-to-day for at least three months, the eGFR indicates Category G1 (>= 90 mL/min/1.73 m2) Lab Interpretation (test code = 44124-6) [facility]normal [facility] Uqh-Dmv4940-76-11 17:53:15* Test Item Value Reference Range Interpretation Comme [facility] NT-proBNP (test code = 52244-1) 1070 pg/mL <=125 H LYNDSAY (test code = LYNDSAY) Positive: Heart Failure Likely Lab Interpretation (test code = 56658-2) [facility]normal [facility])2023-11-28 16:41:29* Test Item Value Reference Range Interpretation Comme nts POCT GLU (test code = 2492147571) 129 mg/dL 70-110 H Lab Interpretation (test cod e = 49243-6) Abnormal [facility]anoMagnesium2024-05-11 10:02:12* Test Item Value Reference Range Interpretation Comme nts MAGNESIUM (test code = 4538755931) 2.1 mg/dL 1.7-2.4 Lab Interpretation (test cod e = 94539-3) Normal [facility]anoPhosphorus2024-05-11 10:02:12* Test Item Value Reference Range Interpretation Comme nts PHOSPHORUS (test code = 8036345075) 5.9 mg/dL 2.5-5.0 H Lab Interpretation (test cod e = 60344-1) Abnormal [facility]Comp. Metabolic Panel (61056)2023-11-28 10:02:12* Test Item Value Reference Range Interpretation Comme nts NA (test code = 4802213910) 140 mmol/L 135-145 K (test code = 9025413989) 3.7 mmol/L 3.5-5.0 CL (test code = 5999861546) 98 mmol/L 98-108 CO2 TOTAL (test code = 2191851692) 33 mmol/L 23-31 H AGAP (test code = 4434454923) 9 2-16 BUN (test code = 1074865428) 24 mg/dL 7-23 H GLUCOSE (test code = 6876763307) 107 mg/dL 70-110 CREATININE (test code = 2160-0) 0.61 mg/dL 0.50-1.04 TOTAL BILI (test code = 7843358881) 0.6 mg/dL 0.1-1.1 CALCIUM (test code = 4525599545) 8.0 mg/dL 8.6-10.6 L T PROTEIN (test code = 9337775568) 6.0 g/dL 6.3-8.2 L ALBUMIN (test code = 4551311024) 3.4 g/dL 3.5-5.0 L ALK PHOS (test code = 2210831458) 173 U/L 34-122 H ALTv (test code = 1742-6) 61 U/L 5-35 H AST(SGOT) (test code = 9671973903) 29 U/L 13-40 eGFR (test code = 65521-2) 108.4 mL/min/1.73m2 CKD-EPI eGFR (2020). Assuming creatinine has been stable day-to-day for at least three months, the eGFR indicates Category G1 (>= 90 mL/min/1.73 m2) Lab Interpretation (test code = 23331-1) Abnormal [facility] with Annl0122-51-33 09:37:29* Test Item Value Reference Range Interpretation [...] g/dL 31.6-35.1 L RDW-SD (test code = 29079-9) 65.6 fL 39.0-49.9 H RDW-CV (test code = 788-0) 22.0 % 12.0-15.5 H PLT (test code = 777-3) 292 166-358 MPV (test code = 46790-1) 9.1 fL 9.5-12.9 L NRBC/100 WBC (test code = 0859454293) 0.0 0.0-10.0 NRBC x10^3 (test code = 3918449269) See_Comment [Automated messa ge] The system which generated this result transmitted reference range: 10*3/?L. The reference range was not used to interpret this result as normal/abnormal. GRAN MAT (NEUT) % (test code = 770-8) 62.0 % IMM GRAN % (test code = 7509372009) 1.20 % LYMPH % (test code = 736-9) 28.5 % MONO % (test code = 5905-5) 7.3 % EOS % (test code = 713-8) 0.9 % BASO % (test code = 706-2) 0.1 % GRAN MAT x10^3(ANC) (test code = 1873737094) 4.98 10*3/uL 1.88-7.09 IMM GRAN x10^3 (test code = 2796826135) 0.10 10*3/uL 0.00-0.06 H LYMPH x10^3 (test code = 731-0) 2.29 10*3/uL 1.32-3.29 MONO x10^3 (test code = 742-7) 0.59 10*3/uL 0.33-0.92 EOS x10^3 (test code = 711-2) 0.07 10*3/uL 0.03-0.39 BASO x10^3 (test code = 704-7) 0.01-0.07 Lab Interpretation (test code = 63337-4) Abnormal [facility] GLUCOSE (AUTOMATED)2023-11-28 01:32:15* Test Item Value Reference Range Interpretation Comme nts POCT GLU (test code = 4725765625) 154 mg/dL 70-110 H Lab Interpretation (test cod e = 41891-8) Abnormal [facility] GLUCOSE (AUTOMATED)2023-11-27 21:45:44* Test Item Value Reference Range Interpretation Comme nts POCT GLU (test code = 8964654406) 183 mg/dL 70-110 H Lab Interpretation (test cod e = 09488-6) Abnormal [facility] GLUCOSE (AUTOMATED)2023-11-27 16:31:46* Test Item Value Reference Range Interpretation Comme nts POCT GLU (test code = 6183881287) 96 mg/dL 70-110 Lab Interpretation (test cod e = 26020-0) Normal [facility] GLUCOSE (AUTOMATED)2023-11-27 12:42:32* Test Item Value Reference Range Interpretation Comme nts POCT GLU (test code = 1968947689) 88 mg/dL 70-110 Lab Interpretation (test cod e = 54174-1) Normal [facility]anoLanyic Acid Whole Ijsss0890-72-08 06:44:07* Test Item Value Reference Range Interpretation Comme nts LACTIC ACID (test code = 9446314926) 1.48 mmol/L 0.50-2.20 Lab Interpretation (test cod e = 69617-7) Normal [facility] GLUCOSE (AUTOMATED)2023-11-27 02:37:00* Test Item Value Reference Range Interpretation Comme nts POCT GLU (test code = 9580111745) 167 mg/dL 70-110 H Lab Interpretation (test cod e = 65931-6) Abnormal [facility]anoValproic Acid, Xlnp8816-93-71 00:22:04* Test Item Value Reference Range Interpretation Comme nts Valproic Acid, Free (test code = 1066483732) 23.8 ug/mL 4.0-15.0 H LYNDSAY (test code = LYNDSAY) Toxic Range: ? Greater than 15 ug/mL Test developed and characteristics determined by [facility] Laboratory Services. Lab Interpretation (test code = 19585-3) Abnormal [facility] PlanoFolate2024-05-09 22:17:52* Test Item Value Reference Range Interpretation Comme nts FOLATE SER (test code = 0854837921) 10.9 ng/mL 3.0-20.0 Lab Interpretation (test cod e = 53168-4) Normal [facility] PlanoVitamin B12, Okten4619-49-01 22:17:52* Test Item Value Reference Range Interpretation Comme nts VIT B12 (test code = 5451172838) 485 pg/mL 240-930 LYNDSAY (test code = LYNDSAY) Biotin has been reported to cause a positive bias, interpret results relative to patient's use of biotin. Lab Interpretation (test code = 02458-9) Normal [facility]anoCT HEAD WO [id number] 22:17:11EXAM: CT HEAD WO CONTRAST HISTORY: 53 [...] The calvarium and central skull base areunremarkable. [facility]anoMagnesium2024-05-09 22:11:53* Test Item Value Reference Range Interpretation Comme nts MAGNESIUM (test code = 6923405985) 2.1 mg/dL 1.7-2.4 Lab Interpretation (test cod e = 87531-6) Normal [facility]anoComp. Metabolic Panel (49911)2023-11-26 22:11:53* Test Item Value Reference Range Interpretation Comme nts NA (test code = 0716578564) 132 mmol/L 135-145 L K (test code = 6584155457) 4.3 mmol/L 3.5-5.0 CL (test code = 0087508237) 94 mmol/L 98-108 L CO2 TOTAL (test code = 2064705831) 34 mmol/L 23-31 H AGAP (test code = 7787675965) 4 2-16 BUN (test code = 7465847659) 24 mg/dL 7-23 H GLUCOSE (test code = 2218809892) 178 mg/dL 70-110 H CREATININE (test code = 2160-0) 0.62 mg/dL 0.50-1.04 TOTAL BILI (test code = 2445035673) 0.6 mg/dL 0.1-1.1 CALCIUM (test code = 4345833486) 8.0 mg/dL 8.6-10.6 L T PROTEIN (test code = 7459789999) 6.1 g/dL 6.3-8.2 L ALBUMIN (test code = 3281175886) 3.5 g/dL 3.5-5.0 ALK PHOS (test code = 9380097398) 212 U/L 34-122 H ALTv (test code = 1742-6) 80 U/L 5-35 H AST(SGOT) (test code = 6554720967) 51 U/L 13-40 H eGFR (test code = 73273-8) 108.0 mL/min/1.73m2 CKD-EPI eGFR (2020). Assuming creatinine has been stable day-to-day for at least three months, the eGFR indicates Category G1 (>= 90 mL/min/1.73 m2) Lab Interpretation (test code = 90523-3) [facility]normal [facility]PO[facility])2023-11-26 21:19:06* Test Item Value Reference Range Interpretation Comme [facility] POCT GLU (test code = 6141427636) 224 mg/dL 70-110 H Lab Interpretation (test cod e = 71081-5) Abnormal [facility] PlanoKeppra (Levetiracetam)2023-11-26 19:45:17* Test Item Value Reference Range Interpretation Comme [facility] KEPPRA (test code = 0488963435) 12-46 L LYNDSAY (test code = LYNDSAY) Therapeutic range: 12-46 ?g/mL ? ?Toxic: Not well established.Test developed and characteristics determined by [facility] Laboratory Services. Lab Interpretation (test code = 87338-5) Abnormal [facility] PlanoLanyic Acid Whole Zhiwj0924-22-05 18:11:07* Test Item Value Reference Range Interpretation Comme [facility] LACTIC ACID (test code = 1572347138) 6.19 mmol/L 0.50-2.20 H Lab Interpretation (test cod e = 86260-9) Abnormal [facility]anoPONM GLUCOSE (AUTOMATED)2023-11-26 17:06:14* Test Item Value Reference Range Interpretation Comme nts POCT GLU (test code = 1474787704) 293 mg/dL 70-110 H Lab Interpretation (test cod e = 10971-7) Abnormal [facility]anoCom. Metabolic Panel (38984)2023-11-26 14:21:31* Test Item Value Reference Range Interpretation Comme nts NA (test code = 2420272669) 140 mmol/L 135-145 K (test code = 0546023871) 3.9 mmol/L 3.5-5.0 CL (test code = 3965562057) 93 mmol/L 98-108 L CO2 TOTAL (test code = 7775732990) 38 mmol/L 23-31 H AGAP (test code = 8895270559) 9 2-16 BUN (test code = 4719332201) 25 mg/dL 7-23 H GLUCOSE (test code = 6720443094) 83 mg/dL 70-110 CREATININE (test code = 2160-0) 0.71 mg/dL 0.50-1.04 TOTAL BILI (test code = 0738854667) 0.7 mg/dL 0.1-1.1 CALCIUM (test code = 8177092460) 8.7 mg/dL 8.6-10.6 T PROTEIN (test code = 5626774489) 6.6 g/dL 6.3-8.2 ALBUMIN (test code = 6071326818) 3.6 g/dL 3.5-5.0 ALK PHOS (test code = 2598390634) 220 U/L 34-122 H ALTv (test code = 1742-6) 95 U/L 5-35 H AST(SGOT) (test code = 3077720168) 47 U/L 13-40 H eGFR (test code = 20932-4) 103.1 mL/min/1.73m2 CKD-EPI eGFR (2020). Assuming creatinine has been stable day-to-day for at least three months, the eGFR indicates Category G1 (>= 90 mL/min/1.73 m2) Lab Interpretation (test code = 45271-0) [facility]normal [facility]anoMagnesium2024-05-09 14:03:47* Test Item Value Reference Range Interpretation Comme nts MAGNESIUM (test code = 8994194987) 2.3 mg/dL 1.7-2.4 Lab Interpretation (test cod e = 88232-4) Normal [facility] PlanoCb with Nwit4429-30-52 13:57:47* Test Item Value Reference Range Interpretation [...] g/dL 31.6-35.1 L RDW-SD (test code = 62813-6) 67.3 fL 39.0-49.9 H RDW-CV (test code = 788-0) 22.5 % 12.0-15.5 H PLT (test code = 777-3) 285 166-358 MPV (test code = 01204-5) 9.2 fL 9.5-12.9 L NRBC/100 WBC (test code = 8889607605) 0.3 0.0-10.0 NRBC x10^3 (test code = 7060723801) 0.03 See_Comment [Automated messa ge] The system which generated this result transmitted reference range: 10*3/?L. The reference range was not used to interpret this result as normal/abnormal. GRAN MAT (NEUT) % (test code = 770-8) 70.5 % IMM GRAN % (test code = 9492077942) 0.80 % LYMPH % (test code = 736-9) 21.7 % MONO % (test code = 5905-5) 6.4 % EOS % (test code = 713-8) 0.5 % BASO % (test code = 706-2) 0.1 % GRAN MAT x10^3(ANC) (test code = 7746152908) 7.54 10*3/uL 1.88-7.09 H IMM GRAN x10^3 (test code = 7026503427) 0.09 10*3/uL 0.00-0.06 H LYMPH x10^3 (test code = 731-0) 2.32 10*3/uL 1.32-3.29 MONO x10^3 (test code = 742-7) 0.69 10*3/uL 0.33-0.92 EOS x10^3 (test code = 711-2) 0.05 10*3/uL 0.03-0.39 BASO x10^3 (test code = 704-7) 0.01-0.07 Lab Interpretation (test code = 66114-6) Abnormal [facility]anoLanyic Acid Whole Bsrrl9531-82-08 10:06:23* Test Item Value Reference Range Interpretation Comme [facility] LACTIC ACID (test code = 7078878078) 2.41 mmol/L 0.50-2.20 H Lab Interpretation (test cod e = 25153-4) Abnormal [facility] (AUTOMATED)2023-11-26 02:14:06* Test Item Value Reference Range Interpretation Comme [facility] POCT GLU (test code = 4847567957) 288 mg/dL 70-110 H Lab Interpretation (test cod e = 37218-3) Abnormal [facility] PlanoLactic Acid Whole Zqriz9254-07-65 00:56:52* Test Item Value Reference Range Interpretation Comme [facility] LACTIC ACID (test code = 9693561112) 2.93 mmol/L 0.50-2.20 H Lab Interpretation (test cod e = 76707-1) [facility]normal [facility]anoElectroencephalogram (EEG) - Duration of test: Continuous EEG Monitoring (LTM); Release to patient:Wgdnlffcx2372-74-98 00:00:00 * Test Item Value Reference Range Interpretation Comme nts LYNDSAY (test code = LYNDSAY) LONG-TERM EEG MONITORING #1: 11/26/2023, 15:40 - 16: 31 Name: Heather TurnerN: [id number] Age:53 year oldSex: female History from chart review: This is a 53 year old female with a PMH significant for HFrEF (~35% 05/2023), HTN, Smoker, COPD (on intermittent home O2), chronic low back pain, seizure disorder, C3-C4 ACDF and L3-L4 laminectomies (06/01/23) c/b chronic low back pain 2/2 lumbar spinal stenosis, and depression presenting from [facility] ED due to SOB. Level of [...] segment. Laura Ramirez MD, PhD, FAESData: 11/26/2023 RETIREMENT EEG MONITORING SEGMENT #2: 11/26/23, 16:31:09-19:29:41 In [...] Interpreted by Dewey Neal MD on 11/26/23 -----RETIREMENT EEG MONITORING SEGMENT #3: 11/26/23, 19:29:41 to [...] on 11/27/23 Lab Interpretation (test code = 86774-6) [facility]normal [facility]anoComp. Metabolic Panel (62868)2023-11-25 21:24:39* Test Item Value Reference Range Interpretation Comme nts NA (test code = 1441752076) 134 mmol/L 135-145 L K (test code = 9359730685) 4.3 mmol/L 3.5-5.0 CL (test code = 4017653233) 89 mmol/L 98-108 L CO2 TOTAL (test code = 4067976277) 37 mmol/L 23-31 H AGAP (test code = 4475125266) 8 2-16 BUN (test code = 1812271811) 24 mg/dL 7-23 H GLUCOSE (test code = 9835015039) 177 mg/dL 70-110 H CREATININE (test code = 2160-0) 0.69 mg/dL 0.50-1.04 TOTAL BILI (test code = 5637903108) 0.9 mg/dL 0.1-1.1 CALCIUM (test code = 4515939461) 8.6 mg/dL 8.6-10.6 T PROTEIN (test code = 2644171119) 7.3 g/dL 6.3-8.2 ALBUMIN (test code = 6587572888) 4.1 g/dL 3.5-5.0 ALK PHOS (test code = 8138246439) 263 U/L 34-122 H ALTv (test code = 1742-6) 116 U/L 5-35 H AST(SGOT) (test code = 9744800230) 36 U/L 13-40 eGFR (test code = 90377-7) 105.2 mL/min/1.73m2 CKD-EPI eGFR (2020). Assuming creatinine has been stable day-to-day for at least three months, the eGFR indicates Category G1 (>= 90 mL/min/1.73 m2) Lab Interpretation (test code = 15739-4) [facility]anoMagnesium2024-05-08 21:24:39* Test Item Value Reference Range Interpretation Comme nts MAGNESIUM (test code = 4615908103) 2.1 mg/dL 1.7-2.4 Lab Interpretation (test cod e = 33766-7) Normal [facility] PlanoLactic Acid Whole Ackpp9887-38-03 21:10:26* Test Item Value Reference Range Interpretation Comme nts LACTIC ACID (test code = 0073381069) 4.07 mmol/L 0.50-2.20 H Lab Interpretation (test cod e = 24139-8) Abnormal [facility] GLUCOSE (AUTOMATED)2023-11-25 21:01:04* Test Item Value Reference Range Interpretation Comme nts POCT GLU (test code = 8349713428) 173 mg/dL 70-110 H Lab Interpretation (test cod e = 97720-1) Abnormal [facility] GLUCOSE (AUTOMATED)2023-11-25 16:59:00* Test Item Value Reference Range Interpretation Comme nts POCT GLU (test code = 4925936771) 220 mg/dL 70-110 H Lab Interpretation (test cod e = 59280-6) Abnormal [facility] GLUCOSE (AUTOMATED)2023-11-25 13:06:20* Test Item Value Reference Range Interpretation Comme nts POCT GLU (test code = 3856078455) 92 mg/dL 70-110 Lab Interpretation (test cod e = 66951-7) [facility] [id number] 09:28:51* Test Item Value Reference Range Interpretation Comme nts LACTIC ACID (test code = 2016971843) 1.66 mmol/L 0.50-2.20 Lab Interpretation (test cod e = 02809-1) [facility] [id number] 04:58:57* Test Item Value Reference Range Interpretation Comme nts LACTIC ACID (test code = 8850256753) 2.00 mmol/L 0.50-2.20 Lab Interpretation (test cod e = 72037-0) Normal [facility] GLUCOSE (AUTOMATED)2023-11-25 03:05:13* Test Item Value Reference Range Interpretation Comme nts POCT GLU (test code = [id number]) 189 mg/dL 70-110 H Lab Interpretation (test cod e = 47699-6) Abnormal [facility] ABDOMEN PELVIS W [id number] 00:18:09CT ABDOMEN PELVIS W CONTRAST 11/24/2023 5:07 [...] pelvic and upper thigh skinthickening and subcutaneous edema.[facility] [id number] 21:31:49* Test Item Value Reference Range Interpretation Comme [facility] LACTIC ACID (test code = 6078491885) 4.54 mmol/L 0.50-2.20 H Lab Interpretation (test cod e = 93941-4) Abnormal [facility] GLUCOSE (AUTOMATED)2023-11-24 21:31:39* Test Item Value Reference Range Interpretation Comme [facility] POCT GLU (test code = 2564772480) 198 mg/dL 70-110 H Lab Interpretation (test cod e = 58909-7) Abnormal [facility] GLUCOSE (AUTOMATED)2023-11-24 17:53:57* Test Item Value Reference Range Interpretation Comme nts POCT GLU (test code = 8597123392) 226 mg/dL 70-110 H Lab Interpretation (test cod e = 34276-3) Abnormal [facility] GLUCOSE (AUTOMATED)2023-11-24 17:53:57* Test Item Value Reference Range Interpretation Comme nts POCT GLU (test code = 0377792872) 226 mg/dL 70-110 H Lab Interpretation (test cod e = 87680-6) Abnormal [facility] GLUCOSE (AUTOMATED)2023-11-24 17:53:57* Test Item Value Reference Range Interpretation Comme nts POCT GLU (test code = 1958958919) 226 mg/dL 70-110 H Lab Interpretation (test cod e = 69492-0) [facility] Oukvg3318-11-55 15:48:27* Test Item Value Reference Range Interpretation Comme nts LACTIC ACID (test code = 1127333613) 4.43 mmol/L 0.50-2.20 H Lab Interpretation (test cod e = 52296-9) [facility] Pkiuo6499-01-27 15:48:27* Test Item Value Reference Range Interpretation Comme nts LACTIC ACID (test code = 5975769233) 4.43 mmol/L 0.50-2.20 H Lab Interpretation (test cod e = 15334-1) [facility] Ilelq6881-77-83 15:48:27* Test Item Value Reference Range Interpretation Comme nts LACTIC ACID (test code = 0172582136) 4.43 mmol/L 0.50-2.20 H Lab Interpretation (test cod e = 37567-3) [facility] Xetdjtxtnldtzaa3491-33-76 14:28:29? ?RHC/Coronary Angiography Date of Service: 11/23/2023 ?3:18 PM Indication/Diagnosis: heart failure Consent source: self Consent type: indications/complications discussed with patient/legal guardian; written consent obtained Time out completed: yes Aseptic technique: Chlorprep Local Anesthesia: 1% lidocaine without epinephrine Sedation: fentanyl 50 mcg, Versed 2 mg Access site: right radial artery, RIJ [place] 4.0 5fr8 Fr IJ sheathSwan Rosalba ? [...] mixed component Non obstructive coronary artery disease Plan:Plan discussed with primary team Dr. Tracy MD ?Faculty, was present for the entire procedure. [facility] Post-Procedure Sedation AddendumImmediately prior to start of sedation, the patient was evaluated and there was no change from the pre-procedure evaluation. I was present and directed medical care.The patient underwent moderate sedation ?for the procedure. The medications administered were recorded in the MAR; oxygenation, ventilation and circulation were monitored continuously and were recorded in the EMR. I evaluated the patient after the procedure.The patientwas evaluated immediately as recovering from sedation. Complications: None I agree with Dr. Woo's note as written.I was present supervised the fellows throughout the procedure.Findings discussedwith the primary team (Dr. Fry). Coronary angiography/RHC revealing:- Patent coronary arteries with non obstructive disease. Heavily calcified proximal, mid and distal RCA could harbor a stent, that(if present) is seemingly patent with no significant ISR.- Severely elevated right sided filling pressure, moderate pulmonary hypertension (mixed component), elevated LV filling pressure (no LVEDP obtained due to presence of LV thrombus). Normal cardiac output. Low normal cardiac index (at a heart rate of ~ 120 bpm). - - - - ?Picture suggestive of right sided failure. Nataliia Ivy professor.Division of cardiovascular [facility]Texas [facility] (AUTOMATED)2023-11-24 12:34:31* Test Item Value Reference Range Interpretation Comme nts POCT GLU (test code = 3405261754) 114 mg/dL 70-110 H Lab Interpretation (test cod e = 09577-5) Abnormal [facility] GLUCOSE (AUTOMATED)2023-11-24 12:34:31* Test Item Value Reference Range Interpretation Comme nts POCT GLU (test code = 5850594650) 114 mg/dL 70-110 H Lab Interpretation (test cod e = 24088-1) Abnormal [facility] GLUCOSE (AUTOMATED)2023-11-24 12:34:31* Test Item Value Reference Range Interpretation Comme nts POCT GLU (test code = 0695669963) 114 mg/dL 70-110 H Lab Interpretation (test cod e = 85357-9) [facility]anoMagnesium2024-[facility]-07 11:10:57* Test Item Value Reference Range Interpretation Comme nts MAGNESIUM (test code = 7959074566) 2.2 mg/dL 1.7-2.4 Lab Interpretation (test cod e = 69025-4) Normal [facility]. Metabolic Panel (65650)2023-11-24 11:10:57* Test Item Value Reference Range Interpretation Comme nts NA (test code = 4384189499) 141 mmol/L 135-145 K (test code = 2536824260) 4.1 mmol/L 3.5-5.0 CL (test code = 6867738660) 97 mmol/L 98-108 L CO2 TOTAL (test code = 4404563654) 36 mmol/L 23-31 H AGAP (test code = 1984551593) 8 2-16 BUN (test code = 9846086598) 20 mg/dL 7-23 GLUCOSE (test code = 5297029826) 125 mg/dL 70-110 H CREATININE (test code = 2160-0) 0.66 mg/dL 0.50-1.04 TOTAL BILI (test code = 6597305671) 0.7 mg/dL 0.1-1.1 CALCIUM (test code = 1238556927) 8.4 mg/dL 8.6-10.6 L T PROTEIN (test code = 7475241356) 6.5 g/dL 6.3-8.2 ALBUMIN (test code = 0756463556) 3.7 g/dL 3.5-5.0 ALK PHOS (test code = 5526397303) 266 U/L 34-122 H ALTv (test code = 1742-6) 149 U/L 5-35 H AST(SGOT) (test code = 4124034360) 35 U/L 13-40 eGFR (test code = 34878-5) 106.4 mL/min/1.73m2 CKD-EPI eGFR (2020). Assuming creatinine has been stable day-to-day for at least three months, the eGFR indicates Category G1 (>= 90 mL/min/1.73 m2) Lab Interpretation (test code = 75318-8) [facility]2024-[facility]-07 11:10:57* Test Item Value Reference Range Interpretation Comme nts MAGNESIUM (test code = 6268330931) 2.2 mg/dL 1.7-2.4 Lab Interpretation (test cod e = 42277-5) Normal [facility] Metabolic Panel (24628)2023-11-24 11:10:57* Test Item Value Reference Range Interpretation Comme nts NA (test code = 6446312682) 141 mmol/L 135-145 K (test code = 0272884471) 4.1 mmol/L 3.5-5.0 CL (test code = 1615835809) 97 mmol/L 98-108 L CO2 TOTAL (test code = 8653579965) 36 mmol/L 23-31 H AGAP (test code = 9039705054) 8 2-16 BUN (test code = 4391342157) 20 mg/dL 7-23 GLUCOSE (test code = 6092548764) 125 mg/dL 70-110 H CREATININE (test code = 2160-0) 0.66 mg/dL 0.50-1.04 TOTAL BILI (test code = 1816187878) 0.7 mg/dL 0.1-1.1 CALCIUM (test code = 0071746006) 8.4 mg/dL 8.6-10.6 L T PROTEIN (test code = 6656162906) 6.5 g/dL 6.3-8.2 ALBUMIN (test code = 2828873712) 3.7 g/dL 3.5-5.0 ALK PHOS (test code = 1386470715) 266 U/L 34-122 H ALTv (test code = 1742-6) 149 U/L 5-35 H AST(SGOT) (test code = 1139196642) 35 U/L 13-40 eGFR (test code = 56487-2) 106.4 mL/min/1.73m2 CKD-EPI eGFR (2020). Assuming creatinine has been stable day-to-day for at least three months, the eGFR indicates Category G1 (>= 90 mL/min/1.73 m2) Lab Interpretation (test code = 96894-4) [facility]2024-[facility]-07 11:10:57* Test Item Value Reference Range Interpretation Comme nts MAGNESIUM (test code = 4254115605) 2.2 mg/dL 1.7-2.4 Lab Interpretation (test cod e = 40866-2) [facility] Met[facility] (08976)2023-11-24 11:10:57* Test Item Value Reference Range Interpretation Comme nts NA (test code = 7405458425) 141 mmol/L 135-145 K (test code = 9300177207) 4.1 mmol/L 3.5-5.0 CL (test code = 1675652431) 97 mmol/L 98-108 L CO2 TOTAL (test code = 1875194885) 36 mmol/L 23-31 H AGAP (test code = 7370627470) 8 2-16 BUN (test code = 3084630421) 20 mg/dL 7-23 GLUCOSE (test code = 5732837571) 125 mg/dL 70-110 H CREATININE (test code = 2160-0) 0.66 mg/dL 0.50-1.04 TOTAL BILI (test code = 3059427356) 0.7 mg/dL 0.1-1.1 CALCIUM (test code = 3888083210) 8.4 mg/dL 8.6-10.6 L T PROTEIN (test code = 2717327548) 6.5 g/dL 6.3-8.2 ALBUMIN (test code = 7564752138) 3.7 g/dL 3.5-5.0 ALK PHOS (test code = 4933624206) 266 U/L 34-122 H ALTv (test code = 1742-6) 149 U/L 5-35 H AST(SGOT) (test code = 9018027837) 35 U/L 13-40 eGFR (test code = 54519-2) 106.4 mL/min/1.73m2 CKD-EPI eGFR (2020). Assuming creatinine has been stable day-to-day for at least three months, the eGFR indicates Category G1 (>= 90 mL/min/1.73 m2) Lab Interpretation (test code = 80789-0) [facility] Vwinji3799-12-95 11:07:59* Test Item Value Reference Range Interpretation Comme nts LACTIC ACID (test code = 1200247876) 3.41 mmol/L 0.50-2.20 H Lab Interpretation (test cod e = 76822-3) [facility] Puiygo1810-81-63 11:07:59* Test Item Value Reference Range Interpretation Comme nts LACTIC ACID (test code = 1285304052) 3.41 mmol/L 0.50-2.20 H Lab Interpretation (test cod e = 68271-4) [facility] Ktlnei1891-58-12 11:07:59* Test Item Value Reference Range Interpretation Comme nts LACTIC ACID (test code = 8108438637) 3.41 mmol/L 0.50-2.20 H Lab Interpretation (test cod e = 50739-0) Abnormal [facility] with Zzml6299-73-24 10:28:34* Test Item Value Reference Range Interpretation [...] g/dL 31.6-35.1 L RDW-SD (test code = 72863-5) 67.5 fL 39.0-49.9 H RDW-CV (test code = 788-0) 22.5 % 12.0-15.5 H PLT (test code = 777-3) 245 166-358 MPV (test code = 44115-1) 9.5 fL 9.5-12.9 NRBC/100 WBC (test code = 9912600409) 1.2 0.0-10.0 NRBC x10^3 (test code = 6823263766) 0.11 See_Comment [Automated messa ge] The system which generated this result transmitted reference range: 10*3/?L. The reference range was not used to interpret this result as normal/abnormal. GRAN MAT (NEUT) % (test code = 770-8) 84.8 % IMM GRAN % (test code = 3546986438) 0.80 % LYMPH % (test code = 736-9) 7.3 % MONO % (test code = 5905-5) 7.0 % EOS % (test code = 713-8) 0.0 % BASO % (test code = 706-2) 0.1 % GRAN MAT x10^3(ANC) (test code = 7770959713) 8.03 10*3/uL 1.88-7.09 H IMM GRAN x10^3 (test code = 8576321696) 0.08 10*3/uL 0.00-0.06 H LYMPH x10^3 (test code = 731-0) 0.69 10*3/uL 1.32-3.29 L MONO x10^3 (test code = 742-7) 0.66 10*3/uL 0.33-0.92 EOS x10^3 (test code = 711-2) 0.03-0.39 L BASO x10^3 (test code = 704-7) 0.01-0.07 Lab Interpretation (test code = 36856-9) Abnormal [facility] with Jtdk8668-97-20 10:28:34* Test Item Value Reference Range Interpretation [...] g/dL 31.6-35.1 L RDW-SD (test code = 78870-3) 67.5 fL 39.0-49.9 H RDW-CV (test code = 788-0) 22.5 % 12.0-15.5 H PLT (test code = 777-3) 245 166-358 MPV (test code = 09209-9) 9.5 fL 9.5-12.9 NRBC/100 WBC (test code = 8377018126) 1.2 0.0-10.0 NRBC x10^3 (test code = 6812915696) 0.11 See_Comment [Automated messa ge] The system which generated this result transmitted reference range: 10*3/?L. The reference range was not used to interpret this result as normal/abnormal. GRAN MAT (NEUT) % (test code = 770-8) 84.8 % IMM GRAN % (test code = 6952562771) 0.80 % LYMPH % (test code = 736-9) 7.3 % MONO % (test code = 5905-5) 7.0 % EOS % (test code = 713-8) 0.0 % BASO % (test code = 706-2) 0.1 % GRAN MAT x10^3(ANC) (test code = 2365227171) 8.03 10*3/uL 1.88-7.09 H IMM GRAN x10^3 (test code = 1322369703) 0.08 10*3/uL 0.00-0.06 H LYMPH x10^3 (test code = 731-0) 0.69 10*3/uL 1.32-3.29 L MONO x10^3 (test code = 742-7) 0.66 10*3/uL 0.33-0.92 EOS x10^3 (test code = 711-2) 0.03-0.39 L BASO x10^3 (test code = 704-7) 0.01-0.07 Lab Interpretation (test code = 13371-7) Abnormal [facility] with Chto5172-51-41 10:28:34* Test Item Value Reference Range Interpretation [...] g/dL 31.6-35.1 L RDW-SD (test code = 80235-7) 67.5 fL 39.0-49.9 H RDW-CV (test code = 788-0) 22.5 % 12.0-15.5 H PLT (test code = 777-3) 245 166-358 MPV (test code = 54003-1) 9.5 fL 9.5-12.9 NRBC/100 WBC (test code = 9689743846) 1.2 0.0-10.0 NRBC x10^3 (test code = 3973964949) 0.11 See_Comment [Automated messa ge] The system which generated this result transmitted reference range: 10*3/?L. The reference range was not used to interpret this result as normal/abnormal. GRAN MAT (NEUT) % (test code = 770-8) 84.8 % IMM GRAN % (test code = 6810109565) 0.80 % LYMPH % (test code = 736-9) 7.3 % MONO % (test code = 5905-5) 7.0 % EOS % (test code = 713-8) 0.0 % BASO % (test code = 706-2) 0.1 % GRAN MAT x10^3(ANC) (test code = 4356636791) 8.03 10*3/uL 1.88-7.09 H IMM GRAN x10^3 (test code = 6017162930) 0.08 10*3/uL 0.00-0.06 H LYMPH x10^3 (test code = 731-0) 0.69 10*3/uL 1.32-3.29 L MONO x10^3 (test code = 742-7) 0.66 10*3/uL 0.33-0.92 EOS x10^3 (test code = 711-2) 0.03-0.39 L BASO x10^3 (test code = 704-7) 0.01-0.07 Lab Interpretation (test code = 86530-5) Abnormal [facility] (for use with Heparin Infusion)2023-11-24 06:40:52* Test Item Value Reference Range Interpretation Comme nts APTT Patient (test code = 3173-2) Lab Interpretation (test cod e = 23718-1) Normal [facility] (for use with Heparin Infusion)2023-11-24 06:40:52* Test Item Value Reference Range Interpretation Comme nts APTT Patient (test code = 3173-2) Lab Interpretation (test cod e = 51088-5) Normal [facility] (for use with Heparin Infusion)2023-11-24 06:40:52* Test Item Value Reference Range Interpretation Comme nts APTT Patient (test code = 3173-2) Lab Interpretation (test cod e = 05362-4) Normal [facility] GLUCOSE (AUTOMATED)2023-11-24 03:18:58* Test Item Value Reference Range Interpretation Comme nts POCT GLU (test code = 5982254293) 263 mg/dL 70-110 H Lab Interpretation (test cod e = 09638-1) Abnormal [facility] GLUCOSE (AUTOMATED)2023-11-24 03:18:58* Test Item Value Reference Range Interpretation Comme nts POCT GLU (test code = 0454401675) 263 mg/dL 70-110 H Lab Interpretation (test cod e = 81174-5) Abnormal [facility] GLUCOSE (AUTOMATED)2023-11-24 03:18:58* Test Item Value Reference Range Interpretation Comme nts POCT GLU (test code = 1366263780) 263 mg/dL 70-110 H Lab Interpretation (test cod e = 01807-6) Abnormal [facility] GLUCOSE (AUTOMATED)2023-11-23 21:29:57* Test Item Value Reference Range Interpretation Comme nts POCT GLU (test code = 6235777622) 137 mg/dL 70-110 H Lab Interpretation (test cod e = 65436-2) Abnormal [facility] GLUCOSE (AUTOMATED)2023-11-23 21:29:57* Test Item Value Reference Range Interpretation Comme nts POCT GLU (test code = 2258929417) 137 mg/dL 70-110 H Lab Interpretation (test cod e = 95951-5) Abnormal [facility] GLUCOSE (AUTOMATED)2023-11-23 21:29:57* Test Item Value Reference Range Interpretation Comme nts POCT GLU (test code = 4588160186) 137 mg/dL 70-110 H Lab Interpretation (test cod e = 49001-9) [facility] ([facility]90[facility] (ALB,T.PRO,BILI T,BU/BC,ALT,AST,ALK PHOS)2023-11-23 17:45:02* Test Item Value Reference Range Interpretation Comme nts TOTAL BILI (test code = 8418702830) 0.7 mg/dL 0.1-1.1 BILI UNCON (test code = 1913660568) 0.1 mg/dL 0.1-1.1 BILI CONJ (test code = 5241652275) 0.0 mg/dL 0.0-0.3 T PROTEIN (test code = 4292031201) 6.2 g/dL 6.3-8.2 L ALBUMIN (test code = 8706176074) 3.5 g/dL 3.5-5.0 ALK PHOS (test code = 0823183796) 274 U/L 34-122 H ALTv (test code = 1742-6) 176 U/L 5-35 H AST(SGOT) (test code = 0265800854) 40 U/L 13-40 Lab Interpretation (test cod e = 89212-1) [facility] (60438[facility] (ALB,T.PRO,BILI T,BU/BC,ALT,AST,ALK PHOS)2023-11-23 17:45:02* Test Item Value Reference Range Interpretation Comme nts TOTAL BILI (test code = 4392863966) 0.7 mg/dL 0.1-1.1 BILI UNCON (test code = 6667120652) 0.1 mg/dL 0.1-1.1 BILI CONJ (test code = 9844576900) 0.0 mg/dL 0.0-0.3 T PROTEIN (test code = 4043495341) 6.2 g/dL 6.3-8.2 L ALBUMIN (test code = 0283139818) 3.5 g/dL 3.5-5.0 ALK PHOS (test code = 3791676159) 274 U/L 34-122 H ALTv (test code = 1742-6) 176 U/L 5-35 H AST(SGOT) (test code = 9055507319) 40 U/L 13-40 Lab Interpretation (test cod e = 41811-5) [facility] (72831) (ALB,T.PRO,BILI T,BU/BC,ALT,AST,ALK PHOS)2023-11-23 17:45:02* Test Item Value Reference Range Interpretation Comme nts TOTAL BILI (test code = 2411119645) 0.7 mg/dL 0.1-1.1 BILI UNCON (test code = 0894745868) 0.1 mg/dL 0.1-1.1 BILI CONJ (test code = 8318488605) 0.0 mg/dL 0.0-0.3 T PROTEIN (test code = 8218023693) 6.2 g/dL 6.3-8.2 L ALBUMIN (test code = 7896716196) 3.5 g/dL 3.5-5.0 ALK PHOS (test code = 0203438378) 274 U/L 34-122 H ALTv (test code = 1742-6) 176 U/L 5-35 H AST(SGOT) (test code = 9142656604) 40 U/L 13-40 Lab Interpretation (test cod e = 64740-5) Abnormal [facility] GLUCOSE (AUTOMATED)2023-11-23 17:19:25* Test Item Value Reference Range Interpretation Comme nts POCT GLU (test code = 9819813318) 137 mg/dL 70-110 H Lab Interpretation (test cod e = 61163-2) Abnormal [facility] GLUCOSE (AUTOMATED)2023-11-23 17:19:25* Test Item Value Reference Range Interpretation Comme nts POCT GLU (test code = 6714976471) 137 mg/dL 70-110 H Lab Interpretation (test cod e = 41320-8) Abnormal [facility] GLUCOSE (AUTOMATED)2023-11-23 17:19:25* Test Item Value Reference Range Interpretation Comme nts POCT GLU (test code = 5047347105) 137 mg/dL 70-110 H Lab Interpretation (test cod e = 48458-6) Abnormal [facility] GLUCOSE (AUTOMATED)2023-11-23 16:51:25* Test Item Value Reference Range Interpretation Comme nts POCT GLU (test code = 5033367807) 145 mg/dL 70-110 H Lab Interpretation (test cod e = 02429-1) Abnormal [facility] GLUCOSE (AUTOMATED)2023-11-23 16:51:25* Test Item Value Reference Range Interpretation Comme nts POCT GLU (test code = 0761902674) 145 mg/dL 70-110 H Lab Interpretation (test cod e = 46225-1) Abnormal [facility] GLUCOSE (AUTOMATED)2023-11-23 16:51:25* Test Item Value Reference Range Interpretation Comme nts POCT GLU (test code = 2906218090) 145 mg/dL 70-110 H Lab Interpretation (test cod e = 59830-4) [facility]2023-11-23 15:36:08* Test Item Value Reference Range Interpretation Comme nts APTT Patient (test code = 3173-2) 44 26-36 H Lab Interpretation (test cod e = 93860-3) [facility] Infusion[facility]2023-11-23 15:36:08* Test Item Value Reference Range Interpretation Comme nts APTT Patient (test code = 3173-2) 44 26-36 H Lab Interpretation (test cod e = 19449-3) [facility]2023-11-23 15:36:08* Test Item Value Reference Range Interpretation Comme nts APTT Patient (test code = 3173-2) 44 26-36 H Lab Interpretation (test cod e = 80950-5) [facility] Gbbqx0130-48-26 15:21:35* Test Item Value Reference Range Interpretation Comme nts LACTIC ACID (test code = 2903157929) 4.80 mmol/L 0.50-2.20 H Lab Interpretation (test cod e = 63870-8) [facility] Fepxi2618-75-98 15:21:35* Test Item Value Reference Range Interpretation Comme nts LACTIC ACID (test code = 7407660972) 4.80 mmol/L 0.50-2.20 H Lab Interpretation (test cod e = 55880-3) [facility] Wvdsi7801-26-77 15:21:35* Test Item Value Reference Range Interpretation Comme nts LACTIC ACID (test code = 2453999087) 4.80 mmol/L 0.50-2.20 H Lab Interpretation (test cod e = 52930-1) Abnormal [facility] GLUCOSE (AUTOMATED)2023-11-23 12:49:15* Test Item Value Reference Range Interpretation Comme nts POCT GLU (test code = 5383961184) 162 mg/dL 70-110 H Lab Interpretation (test cod e = 25441-9) Abnormal [facility] GLUCOSE (AUTOMATED)2023-11-23 12:49:15* Test Item Value Reference Range Interpretation Comme nts POCT GLU (test code = 1576152232) 162 mg/dL 70-110 H Lab Interpretation (test cod e = 16232-3) Abnormal [facility] GLUCOSE (AUTOMATED)2023-11-23 12:49:15* Test Item Value Reference Range Interpretation Comme nts POCT GLU (test code = 7029840787) 162 mg/dL 70-110 H Lab Interpretation (test cod e = 39831-8) Abnormal [facility]2024-05-06 08:44:42* Test Item Value Reference Range Interpretation Comme nts MAGNESIUM (test code = 5011357468) 1.9 mg/dL 1.7-2.4 Lab Interpretation (test cod e = 72616-9) Normal [facility] Metabolic Panel (NA, K, CL, CO2, GLUCOSE, BUN, CREATININE, CA)2023-11-23 08:44:42* Test Item Value Reference Range Interpretation Comme nts NA (test code = 9005733487) 136 mmol/L 135-145 K (test code = 8034420433) 3.7 mmol/L 3.5-5.0 CL (test code = 8387519668) 99 mmol/L 98-108 CO2 TOTAL (test code = 4477210920) 31 mmol/L 23-31 AGAP (test code = 4186150851) 6 2-16 BUN (test code = 8771952595) 20 mg/dL 7-23 GLUCOSE (test code = 9276255455) 184 mg/dL 70-110 H CREATININE (test code = 2160-0) 0.66 mg/dL 0.50-1.04 CALCIUM (test code = 8188311283) 7.9 mg/dL 8.6-10.6 L eGFR (test code = 13032-6) 106.4 mL/min/1.73m2 CKD-EPI eGFR (2020). Assuming creatinine has been stable day-to-day for at least three months, the eGFR indicates Category G1 (>= 90 mL/min/1.73 m2) Lab Interpretation (test code = 92370-8) Abnormal [facility]2024-05-06 08:44:42* Test Item Value Reference Range Interpretation Comme nts MAGNESIUM (test code = 4523428106) 1.9 mg/dL 1.7-2.4 Lab Interpretation (test cod e = 94879-9) Normal [facility] Metabolic Panel (NA, K, CL, CO2, GLUCOSE, BUN, CREATININE, CA)2023-11-23 08:44:42* Test Item Value Reference Range Interpretation Comme nts NA (test code = 7007241240) 136 mmol/L 135-145 K (test code = 4053461172) 3.7 mmol/L 3.5-5.0 CL (test code = 5585180806) 99 mmol/L 98-108 CO2 TOTAL (test code = 7843625964) 31 mmol/L 23-31 AGAP (test code = 9219458714) 6 2-16 BUN (test code = 9311021767) 20 mg/dL 7-23 GLUCOSE (test code = 1158825892) 184 mg/dL 70-110 H CREATININE (test code = 2160-0) 0.66 mg/dL 0.50-1.04 CALCIUM (test code = 2495048952) 7.9 mg/dL 8.6-10.6 L eGFR (test code = 90512-6) 106.4 mL/min/1.73m2 CKD-EPI eGFR (2020). Assuming creatinine has been stable day-to-day for at least three months, the eGFR indicates Category G1 (>= 90 mL/min/1.73 m2) Lab Interpretation (test code = 98310-4) [facility] 08:44:42* Test Item Value Reference Range Interpretation Comme nts MAGNESIUM (test code = 6791930505) 1.9 mg/dL 1.7-2.4 Lab Interpretation (test cod e = 07976-1) Normal [facility] Metabolic Panel (NA, K, CL, CO2, GLUCOSE, BUN, CREATININE, CA)2023-11-23 08:44:42* Test Item Value Reference Range Interpretation Comme nts NA (test code = 5483603567) 136 mmol/L 135-145 K (test code = 8514858112) 3.7 mmol/L 3.5-5.0 CL (test code = 7837697431) 99 mmol/L 98-108 CO2 TOTAL (test code = 1510193983) 31 mmol/L 23-31 AGAP (test code = 8113462795) 6 2-16 BUN (test code = 0463963935) 20 mg/dL 7-23 GLUCOSE (test code = 2980975738) 184 mg/dL 70-110 H CREATININE (test code = 2160-0) 0.66 mg/dL 0.50-1.04 CALCIUM (test code = 3262082153) 7.9 mg/dL 8.6-10.6 L eGFR (test code = 47268-1) 106.4 mL/min/1.73m2 CKD-EPI eGFR (2020). Assuming creatinine has been stable day-to-day for at least three months, the eGFR indicates Category G1 (>= 90 mL/min/1.73 m2) Lab Interpretation (test code = 57450-5) Abnormal [facility] (for use with Heparin Infusion)2023-11-23 08:29:39* Test Item Value Reference Range Interpretation Comme [facility] APTT Patient (test code = 3173-2) 49 26-36 H Lab Interpretation (test cod e = 13108-9) Abnormal [facility] (for use with Heparin Infusion)2023-11-23 08:29:39* Test Item Value Reference Range Interpretation Comme [facility] APTT Patient (test code = 3173-2) 49 26-36 H Lab Interpretation (test cod e = 82230-1) Abnormal [facility] (for use with Heparin Infusion)2023-11-23 08:29:39* Test Item Value Reference Range Interpretation Comme [facility] APTT Patient (test code = 3173-2) 49 26-36 H Lab Interpretation (test cod e = 58746-0) Abnormal [facility] with [id number] 08:24:03* Test Item Value Reference Range Interpretation Comme [facility] WBC (test code = 6690-2) 7.18 [...] g/dL 31.6-35.1 L RDW-SD (test code = 99249-8) 66.0 fL 39.0-49.9 H RDW-CV (test code = 788-0) 22.5 % 12.0-15.5 H PLT (test code = 777-3) 204 166-358 MPV (test code = 60377-8) 9.8 fL 9.5-12.9 NRBC/100 WBC (test code = 4496680722) 2.4 0.0-10.0 NRBC x10^3 (test code = 1737943451) 0.17 See_Comment [Automated messa ge] The system which generated this result transmitted reference range: 10*3/?L. The reference range was not used to interpret this result as normal/abnormal. GRAN MAT (NEUT) % (test code = 770-8) 80.3 % IMM GRAN % (test code = 4988218364) 1.70 % LYMPH % (test code = 736-9) 9.5 % MONO % (test code = 5905-5) 8.5 % EOS % (test code = 713-8) 0.0 % BASO % (test code = 706-2) 0.0 % GRAN MAT x10^3(ANC) (test code = 7068458981) 5.77 10*3/uL 1.88-7.09 IMM GRAN x10^3 (test code = 3668993706) 0.12 10*3/uL 0.00-0.06 H LYMPH x10^3 (test code = 731-0) 0.68 10*3/uL 1.32-3.29 L MONO x10^3 (test code = 742-7) 0.61 10*3/uL 0.33-0.92 EOS x10^3 (test code = 711-2) 0.03-0.39 L BASO x10^3 (test code = 704-7) 0.01-0.07 Lab Interpretation (test code = 69791-8) Abnormal [facility] with Ivji1482-54-14 08:24:03* Test Item Value Reference Range Interpretation [...] g/dL 31.6-35.1 L RDW-SD (test code = 41958-2) 66.0 fL 39.0-49.9 H RDW-CV (test code = 788-0) 22.5 % 12.0-15.5 H PLT (test code = 777-3) 204 166-358 MPV (test code = 38659-5) 9.8 fL 9.5-12.9 NRBC/100 WBC (test code = 5584573620) 2.4 0.0-10.0 NRBC x10^3 (test code = 8942216650) 0.17 See_Comment [Automated messa ge] The system which generated this result transmitted reference range: 10*3/?L. The reference range was not used to interpret this result as normal/abnormal. GRAN MAT (NEUT) % (test code = 770-8) 80.3 % IMM GRAN % (test code = 9690395225) 1.70 % LYMPH % (test code = 736-9) 9.5 % MONO % (test code = 5905-5) 8.5 % EOS % (test code = 713-8) 0.0 % BASO % (test code = 706-2) 0.0 % GRAN MAT x10^3(ANC) (test code = 3359801047) 5.77 10*3/uL 1.88-7.09 IMM GRAN x10^3 (test code = 2802977546) 0.12 10*3/uL 0.00-0.06 H LYMPH x10^3 (test code = 731-0) 0.68 10*3/uL 1.32-3.29 L MONO x10^3 (test code = 742-7) 0.61 10*3/uL 0.33-0.92 EOS x10^3 (test code = 711-2) 0.03-0.39 L BASO x10^3 (test code = 704-7) 0.01-0.07 Lab Interpretation (test code = 33176-7) Abnormal [facility] with Aulk0630-10-98 08:24:03* Test Item Value Reference Range Interpretation [...] g/dL 31.6-35.1 L RDW-SD (test code = 15778-9) 66.0 fL 39.0-49.9 H RDW-CV (test code = 788-0) 22.5 % 12.0-15.5 H PLT (test code = 777-3) 204 166-358 MPV (test code = 82535-1) 9.8 fL 9.5-12.9 NRBC/100 WBC (test code = 5226797562) 2.4 0.0-10.0 NRBC x10^3 (test code = 6419729040) 0.17 See_Comment [Automated messa ge] The system which generated this result transmitted reference range: 10*3/?L. The reference range was not used to interpret this result as normal/abnormal. GRAN MAT (NEUT) % (test code = 770-8) 80.3 % IMM GRAN % (test code = 9080265393) 1.70 % LYMPH % (test code = 736-9) 9.5 % MONO % (test code = 5905-5) 8.5 % EOS % (test code = 713-8) 0.0 % BASO % (test code = 706-2) 0.0 % GRAN MAT x10^3(ANC) (test code = 2353415040) 5.77 10*3/uL 1.88-7.09 IMM GRAN x10^3 (test code = 1450665794) 0.12 10*3/uL 0.00-0.06 H LYMPH x10^3 (test code = 731-0) 0.68 10*3/uL 1.32-3.29 L MONO x10^3 (test code = 742-7) 0.61 10*3/uL 0.33-0.92 EOS x10^3 (test code = 711-2) 0.03-0.39 L BASO x10^3 (test code = 704-7) 0.01-0.07 Lab Interpretation (test code = 30300-0) [facility] Phziw8497-83-68 08:04:10* Test Item Value Reference Range Interpretation Comme nts LACTIC ACID (test code = 3443455868) 4.15 mmol/L 0.50-2.20 H Lab Interpretation (test cod e = 01393-6) [facility] Lnmua3028-40-99 08:04:10* Test Item Value Reference Range Interpretation Comme nts LACTIC ACID (test code = 1530674979) 4.15 mmol/L 0.50-2.20 H Lab Interpretation (test cod e = 48511-4) [facility] Gnrxq2924-10-64 08:04:10* Test Item Value Reference Range Interpretation Comme nts LACTIC ACID (test code = 4854589724) 4.15 mmol/L 0.50-2.20 H Lab Interpretation (test cod e = 77575-2) [facility] Pktjq9043-25-20 05:11:29* Test Item Value Reference Range Interpretation Comme nts LACTIC ACID (test code = 2805035829) 4.23 mmol/L 0.50-2.20 H Lab Interpretation (test cod e = 30363-8) [facility] Kctgg8085-36-04 05:11:29* Test Item Value Reference Range Interpretation Comme nts LACTIC ACID (test code = 2777152805) 4.23 mmol/L 0.50-2.20 H Lab Interpretation (test cod e = 28841-5) [facility] Glycc8659-00-75 05:11:29* Test Item Value Reference Range Interpretation Comme nts LACTIC ACID (test code = 1866868703) 4.23 mmol/L 0.50-2.20 H Lab Interpretation (test cod e = 32296-8) [facility] Ytdoh8105-90-73 03:16:26* Test Item Value Reference Range Interpretation Comme nts LACTIC ACID (test code = 2671404087) 3.66 mmol/L 0.50-2.20 H Lab Interpretation (test cod e = 78566-6) [facility] Bhhwf5023-44-33 03:16:26* Test Item Value Reference Range Interpretation Comme nts LACTIC ACID (test code = 1183015692) 3.66 mmol/L 0.50-2.20 H Lab Interpretation (test cod e = 40543-2) [facility] Vjscl8514-22-25 03:16:26* Test Item Value Reference Range Interpretation Comme nts LACTIC ACID (test code = 7100069056) 3.66 mmol/L 0.50-2.20 H Lab Interpretation (test cod e = 11630-9) [facility] Ryogb5447-91-28 01:21:56* Test Item Value Reference Range Interpretation Comme nts LACTIC ACID (test code = 1735078848) 3.68 mmol/L 0.50-2.20 H Lab Interpretation (test cod e = 97071-1) [facility]normal [facility] Whole Ebhgd8872-79-38 01:21:56* Test Item Value Reference Range Interpretation Comme nts LACTIC ACID (test code = 1196720219) 3.68 mmol/L 0.50-2.20 H Lab Interpretation (test cod e = 76046-0) [facility] Iazkw0414-33-19 01:21:56* Test Item Value Reference Range Interpretation Comme nts LACTIC ACID (test code = 8610357261) 3.68 mmol/L 0.50-2.20 H Lab Interpretation (test cod e = 83648-4) Abnormal [facility] GLUCOSE (AUTOMATED)2023-11-23 01:07:13* Test Item Value Reference Range Interpretation Comme nts POCT GLU (test code = 2358831544) 193 mg/dL 70-110 H Lab Interpretation (test cod e = 55343-8) Abnormal [facility] GLUCOSE (AUTOMATED)2023-11-23 01:07:13* Test Item Value Reference Range Interpretation Comme nts POCT GLU (test code = 0799192583) 193 mg/dL 70-110 H Lab Interpretation (test cod e = 00604-4) Abnormal [facility] GLUCOSE (AUTOMATED)2023-11-23 01:07:13* Test Item Value Reference Range Interpretation Comme nts POCT GLU (test code = 5398996725) 193 mg/dL 70-110 H Lab Interpretation (test cod e = 03353-4) [facility] Hlbkm5784-52-43 23:56:10* Test Item Value Reference Range Interpretation Comme nts LACTIC ACID (test code = 2721616843) 3.82 mmol/L 0.50-2.20 H Lab Interpretation (test cod e = 54776-9) [facility] Zrpny4369-33-12 23:56:10* Test Item Value Reference Range Interpretation Comme nts LACTIC ACID (test code = 7653440537) 3.82 mmol/L 0.50-2.20 H Lab Interpretation (test cod e = 97263-0) [facility] Hsnfd6793-43-47 23:56:10* Test Item Value Reference Range Interpretation Comme nts LACTIC ACID (test code = 8734561480) 3.82 mmol/L 0.50-2.20 H Lab Interpretation (test cod e = 76757-4) Abnormal [facility] GLUCOSE (AUTOMATED)2023-11-22 22:00:27* Test Item Value Reference Range Interpretation Comme nts POCT GLU (test code = 1766070575) 218 mg/dL 70-110 H Lab Interpretation (test cod e = 61212-0) Abnormal [facility] GLUCOSE (AUTOMATED)2023-11-22 22:00:27* Test Item Value Reference Range Interpretation Comme nts POCT GLU (test code = 5486709536) 218 mg/dL 70-110 H Lab Interpretation (test cod e = 43860-7) Abnormal [facility] GLUCOSE (AUTOMATED)2023-11-22 22:00:27* Test Item Value Reference Range Interpretation Comme nts POCT GLU (test code = 9399762780) 218 mg/dL 70-110 H Lab Interpretation (test cod e = 27181-9) [facility] Phrnm7906-35-61 21:49:39* Test Item Value Reference Range Interpretation Comme nts LACTIC ACID (test code = 0111109426) 4.40 mmol/L 0.50-2.20 H Lab Interpretation (test cod e = 74412-6) [facility] Zmfov5087-96-69 21:49:39* Test Item Value Reference Range Interpretation Comme nts LACTIC ACID (test code = 8063868425) 4.40 mmol/L 0.50-2.20 H Lab Interpretation (test cod e = 40157-2) [facility] Oqsxx6430-77-76 21:49:39* Test Item Value Reference Range Interpretation Comme nts LACTIC ACID (test code = 1648333015) 4.40 mmol/L 0.50-2.20 H Lab Interpretation (test cod e = 30995-8) Abnormal [facility] GLUCOSE (AUTOMATED)2023-11-22 21:02:20* Test Item Value Reference Range Interpretation Comme nts POCT GLU (test code = 9160771033) 208 mg/dL 70-110 H Lab Interpretation (test cod e = 88320-2) Abnormal [facility] GLUCOSE (AUTOMATED)2023-11-22 21:02:20* Test Item Value Reference Range Interpretation Comme nts POCT GLU (test code = 8874866001) 208 mg/dL 70-110 H Lab Interpretation (test cod e = 63109-8) Abnormal [facility] GLUCOSE (AUTOMATED)2023-11-22 21:02:20* Test Item Value Reference Range Interpretation Comme nts POCT GLU (test code = 4950642522) 208 mg/dL 70-110 H Lab Interpretation (test cod e = 86621-7) [facility] Uzuox5561-80-25 20:01:46* Test Item Value Reference Range Interpretation Comme nts LACTIC ACID (test code = 9545576993) 6.14 mmol/L 0.50-2.20 H Lab Interpretation (test cod e = 26707-0) [facility] Ofnvw6481-32-10 20:01:46* Test Item Value Reference Range Interpretation Comme nts LACTIC ACID (test code = 9631521560) 6.14 mmol/L 0.50-2.20 H Lab Interpretation (test cod e = 92218-8) [facility] Doejg3144-11-17 20:01:46* Test Item Value Reference Range Interpretation Comme nts LACTIC ACID (test code = 4575809539) 6.14 mmol/L 0.50-2.20 H Lab Interpretation (test cod e = 34702-7) [facility] ZPFNRRY[facility]21[facility] 18:29:14 Procedure: ? RIGHT UPPER QUADRANT ULTRASOUND [...] are sonographically unremarkable inappearance. ?No evidence to ascites.[facility] 2023-[facility]-22 18:29:14Procedure: ? RIGHT [...] are sonographically unremarkable inappearance. ?No evidence to ascites.[facility] Transthor[facility] (TTE)2023-11-22 18:16:22* Test Item Value Reference Range Interpretation Comme nts Height (test code = 0700918501) 63 in Weight (test code = 8711218115) 208 lbs Systolic BP (test code = 7088510648) 146 mmHg Diastolic BP (test code = 1705540616) 103 mmHg Heart Rate (test code = 6182228143) 112 bpm BSA (test code = 8805868263) 1.97 m2 LVOT diameter (test code = 6924274480) 2.5 cm LVOT area (test code = 1759263488) 5.00 cm2 LA size (test code = 6947680504) 4.2 cm MV Peak E Evette (test code = 7731626387) 128.5 cm/s MV Peak A Evette (test code = 1013291466) 62.4 cm/s E/A ratio (test code = 5047179313) 2.06 ratio E wave decelartion time (test code = 0006257052) 0.12 s MV Prop V (test code = 9157889572) 38.00 cm/s LAV(MOD-sp4) (test code = 4751048319) 68.70 mL Tapse (test code = 7357593934) 0.7 cm LA Volume Index (BP) (test code = 5153585537) 34.6 mL/m2 LA volume (BP) (test code = 5735883294) 68.0 mL LAV(MOD-sp2) (test code = 1080568995) 66.30 mL Ao peak evette (test code = 4875387044) 124.9 cm/s Ao max PG (test code = 8239213271) 6.20 mm[Hg] AV peak gradient (test code = 2318115583) 6.2 mmHg LVOT stroke volume (test code = 5764436691) 42.40 cm3 LVOT peak evette (test code = 0769508833) 67.8 cm/s LVOT mn grad (test code = 0553620288) 0.9 mmHg AV LVOT peak gradient (test code = 3609587035) 1.84 mmHg LVOT peak VTI (test code = 5729846882) 8.4 cm AV area peak evette (test code = 6662413498) 2.7 cm2 LV V1 mean (test code = 5851633358) 43.20 cm/s TR Peak Evette (test code = 7261397360) 247.7 cm/s Triscuspid Valve Regurgitation Peak Gradient (test code = 5175625869) 24.5 mmHg MR max PG (test code = 2707713855) 85.20 mm[Hg] MR max evette (test code = 0610183930) 461.50 cm/s Mr max evette (test code = 0307876499) 461.5 m/s AV regurgitation pressure 1/2 time (test code = 6258002166) 305.5 ms AI dec slope (test code = 1335336597) 432.10 cm/s2 AI max evette (test code = 8181808070) 450.60 cm/s AI max PG (test code = 5850040631) 81.20 mm[Hg] LVIDD (test code = 7200190696) 5.00 cm Left Ventricular End Diastolic Volume by Teichholz Method (test code = 8262386) 116.6 mL IVS (test code = 6614933629) 0.93 cm Interventricular Septum Diastolic Thickness by 2D (test code = 8308546) 0.93 cm LVPWD (test code = 0730407577) 1.00 cm PW (test code = 1582857650) 1.00 cm 0.6-1.1 EF(Teich) (test code = 9265787055) 33.90 % LVIDS (test code = 3023890284) 4.20 cm Left Ventricular End Systolic Volume by Teichholz Method (test code = 1659860) 77.1 mL FS (test code = 4403485843) 16 % EF - 2D (test code = 36756227) 33.90 % Radiology Study observation (narrative) (test code = 45482-3) LYNDSAY (test code = LYNDSAY) ?Left?Ventricle: Left [...] mL of Definity ultrasound enhancing agent used. [facility] 18:16:22* Test Item Value Reference Range Interpretation Comme nts Height (test code = 3471681331) 63 in Weight (test code = 6379888577) 208 lbs Systolic BP (test code = 0096769564) 146 mmHg Diastolic BP (test code = 9047894039) 103 mmHg Heart Rate (test code = 3065013690) 112 bpm BSA (test code = 9256006653) 1.97 m2 LVOT diameter (test code = 6983209568) 2.5 cm LVOT area (test code = 2170835159) 5.00 cm2 LA size (test code = 0829765217) 4.2 cm MV Peak E Evette (test code = 0959836356) 128.5 cm/s MV Peak A Evette (test code = 3376998249) 62.4 cm/s E/A ratio (test code = 7512536355) 2.06 ratio E wave decelartion time (test code = 6309007398) 0.12 s MV Prop V (test code = 5484203214) 38.00 cm/s LAV(MOD-sp4) (test code = 1739164999) 68.70 mL Tapse (test code = 2980274208) 0.7 cm LA Volume Index (BP) (test code = 3337479748) 34.6 mL/m2 LA volume (BP) (test code = 8614937973) 68.0 mL LAV(MOD-sp2) (test code = 0184511936) 66.30 mL Ao peak evette (test code = 8138410261) 124.9 cm/s Ao max PG (test code = 9987783317) 6.20 mm[Hg] AV peak gradient (test code = 8791214443) 6.2 mmHg LVOT stroke volume (test code = 7408515958) 42.40 cm3 LVOT peak evette (test code = 8148879795) 67.8 cm/s LVOT mn grad (test code = 0822348771) 0.9 mmHg AV LVOT peak gradient (test code = 7961804265) 1.84 mmHg LVOT peak VTI (test code = 6928873222) 8.4 cm AV area peak evette (test code = 2613627294) 2.7 cm2 LV V1 mean (test code = 7368536878) 43.20 cm/s TR Peak Evette (test code = 3534547912) 247.7 cm/s Triscuspid Valve Regurgitation Peak Gradient (test code = 1203171014) 24.5 mmHg MR max PG (test code = 4421944144) 85.20 mm[Hg] MR max evette (test code = 7150012644) 461.50 cm/s Mr max evette (test code = 2338715164) 461.5 m/s AV regurgitation pressure 1/2 time (test code = 1455264958) 305.5 ms AI dec slope (test code = 1565981618) 432.10 cm/s2 AI max evette (test code = 5968810564) 450.60 cm/s AI max PG (test code = 8361443613) 81.20 mm[Hg] LVIDD (test code = 9492807374) 5.00 cm Left Ventricular End Diastolic Volume by Teichholz Method (test code = 1196571) 116.6 mL IVS (test code = 9304292607) 0.93 cm Interventricular Septum Diastolic Thickness by 2D (test code = 2001384) 0.93 cm LVPWD (test code = 8477681612) 1.00 cm PW (test code = 0844329539) 1.00 cm 0.6-1.1 EF(Teich) (test code = 5722682816) 33.90 % LVIDS (test code = 8021656899) 4.20 cm Left Ventricular End Systolic Volume by Teichholz Method (test code = 1776899) 77.1 mL FS (test code = 1297602680) 16 % EF - 2D (test code = 34403032) 33.90 % Radiology Study observation (narrative) (test code = 24747-3) LYNDSAY (test code = LYNDSAY) ?Left?Ventricle: Left [...] mL of Definity ultrasound enhancing agent used. [facility] Lqijc7873-50-06 17:29:30* Test Item Value Reference Range Interpretation Comme nts LACTIC ACID (test code = 3937436032) 4.00 mmol/L 0.50-2.20 H QUES Lab Interpretation (test cod e = 15955-8) [facility] Aindv8143-97-90 17:29:30* Test Item Value Reference Range Interpretation Comme nts LACTIC ACID (test code = 4536609340) 4.00 mmol/L 0.50-2.20 H QUES Lab Interpretation (test cod e = 80912-8) [facility] Ikdgo9926-63-14 17:29:30* Test Item Value Reference Range Interpretation Comme nts LACTIC ACID (test code = 1552721491) 4.00 mmol/L 0.50-2.20 H QUES Lab Interpretation (test cod e = 05267-4) Abnormal [facility] GLUCOSE (AUTOMATED)2023-11-22 17:01:27* Test Item Value Reference Range Interpretation Comme nts POCT GLU (test code = 3527737833) 152 mg/dL 70-110 H Notified Provide r Lab Interpretation (test code = 35798-0) Abnormal [facility] GLUCOSE (AUTOMATED)2023-11-22 17:01:27* Test Item Value Reference Range Interpretation Comme nts POCT GLU (test code = 0215445633) 152 mg/dL 70-110 H Notified Provide r Lab Interpretation (test code = 69795-5) Abnormal [facility] GLUCOSE (AUTOMATED)2023-11-22 17:01:27* Test Item Value Reference Range Interpretation Comme nts POCT GLU (test code = 2474479629) 152 mg/dL 70-110 H Notified Provide r Lab Interpretation (test code = 96877-9) Abnormal [facility] Rjxnm5530-19-71 16:28:02* Test Item Value Reference Range Interpretation Comme nts IRON (test code = 6556332435) 44 ug/dL 50-160 L TIBC (test code = 1068521486) 395 ug/dL 250-410 % FE SAT (test code = 4904948619) 11 % 20-50 L Lab Interpretation (test cod e = 01089-0) Abnormal [facility] Wiwho5840-97-43 16:28:02* Test Item Value Reference Range Interpretation Comme nts IRON (test code = 4931854654) 44 ug/dL 50-160 L TIBC (test code = 4182734256) 395 ug/dL 250-410 % FE SAT (test code = 0233884991) 11 % 20-50 L Lab Interpretation (test cod e = 84532-8) [facility] Ynkgs7030-71-20 16:28:02* Test Item Value Reference Range Interpretation Comme nts IRON (test code = 0371015458) 44 ug/dL 50-160 L TIBC (test code = 7853563639) 395 ug/dL 250-410 % FE SAT (test code = 8642574153) 11 % 20-50 L Lab Interpretation (test cod e = 59580-5) Abnormal [facility]. Metabolic Panel ([id number])2023-11-22 16:20:58* Test Item Value Reference Range Interpretation Comme nts NA (test code = 5156900807) 135 mmol/L 135-145 K (test code = 6959437425) 4.0 mmol/L 3.5-5.0 Slight hemolysis CL (test code = 1095600276) 108 mmol/L 98-108 CO2 TOTAL (test code = 1600769447) 20 mmol/L 23-31 L AGAP (test code = 4382123116) 7 2-16 BUN (test code = 1069342716) 20 mg/dL 7-23 Slight hemolysis GLUCOSE (test code = 5932985430) 136 mg/dL 70-110 H CREATININE (test code = 2160-0) 0.48 mg/dL 0.50-1.04 L TOTAL BILI (test code = 8411438624) 0.8 mg/dL 0.1-1.1 CALCIUM (test code = 8296907299) 6.7 mg/dL 8.6-10.6 L T PROTEIN (test code = 4486975726) 5.6 g/dL 6.3-8.2 L ALBUMIN (test code = 5238318784) 3.1 g/dL 3.5-5.0 L ALK PHOS (test code = 6934194596) 282 U/L 34-122 H Slight hemolysis ALTv (test code = 1742-6) 196 U/L 5-35 H AST(SGOT) (test code = 0452772108) 56 U/L 13-40 H Slight hemolysis eGFR (test code = 45885-6) 114.8 mL/min/1.73m2 CKD-EPI eGFR (2020). Assuming creatinine has been stable day-to-day for at least three months, the eGFR indicates Category G1 (>= 90 mL/min/1.73 m2) Lab Interpretation (test code = 44871-2) Abnormal [facility] Metabolic Panel (33385)2023-11-22 16:20:58* Test Item Value Reference Range Interpretation Comme nts NA (test code = 6872461702) 135 mmol/L 135-145 K (test code = 8723986032) 4.0 mmol/L 3.5-5.0 Slight hemolysis CL (test code = 1762937634) 108 mmol/L 98-108 CO2 TOTAL (test code = 2286071045) 20 mmol/L 23-31 L AGAP (test code = 5457720983) 7 2-16 BUN (test code = 1426669052) 20 mg/dL 7-23 Slight hemolysis GLUCOSE (test code = 2097721763) 136 mg/dL 70-110 H CREATININE (test code = 2160-0) 0.48 mg/dL 0.50-1.04 L TOTAL BILI (test code = 3058201412) 0.8 mg/dL 0.1-1.1 CALCIUM (test code = 6026440559) 6.7 mg/dL 8.6-10.6 L T PROTEIN (test code = 9116070225) 5.6 g/dL 6.3-8.2 L ALBUMIN (test code = 2272742341) 3.1 g/dL 3.5-5.0 L ALK PHOS (test code = 9192511995) 282 U/L 34-122 H Slight hemolysis ALTv (test code = 1742-6) 196 U/L 5-35 H AST(SGOT) (test code = 5053377526) 56 U/L 13-40 H Slight hemolysis eGFR (test code = 64462-4) 114.8 mL/min/1.73m2 CKD-EPI eGFR (2020). Assuming creatinine has been stable day-to-day for at least three months, the eGFR indicates Category G1 (>= 90 mL/min/1.73 m2) Lab Interpretation (test code = 62833-4) Abnormal [facility] Metabolic Panel (36289)2023-11-22 16:20:58* Test Item Value Reference Range Interpretation Comme nts NA (test code = 5982181340) 135 mmol/L 135-145 K (test code = 7615744987) 4.0 mmol/L 3.5-5.0 Slight hemolysis CL (test code = 8272084000) 108 mmol/L 98-108 CO2 TOTAL (test code = 8941667706) 20 mmol/L 23-31 L AGAP (test code = 0661464841) 7 2-16 BUN (test code = 7481391594) 20 mg/dL 7-23 Slight hemolysis GLUCOSE (test code = 4840041618) 136 mg/dL 70-110 H CREATININE (test code = 2160-0) 0.48 mg/dL 0.50-1.04 L TOTAL BILI (test code = 4237554584) 0.8 mg/dL 0.1-1.1 CALCIUM (test code = 3992026352) 6.7 mg/dL 8.6-10.6 L T PROTEIN (test code = 8290309823) 5.6 g/dL 6.3-8.2 L ALBUMIN (test code = 4145575508) 3.1 g/dL 3.5-5.0 L ALK PHOS (test code = 8576571033) 282 U/L 34-122 H Slight hemolysis ALTv (test code = 1742-6) 196 U/L 5-35 H AST(SGOT) (test code = 0595389063) 56 U/L 13-40 H Slight hemolysis eGFR (test code = 14883-4) 114.8 mL/min/1.73m2 CKD-EPI eGFR (2020). Assuming creatinine has been stable day-to-day for at least three months, the eGFR indicates Category G1 (>= 90 mL/min/1.73 m2) Lab Interpretation (test code = 87984-9) [facility] RTLIAQQPE0077-51-91 15:51:03PROCEDURE: CT ANGIO CHEST WITH CONTRAST - [...] cholecystectomy. A left adrenal 2.7cm nodule suspected. [facility] GHKSPFOBR4659-16-63 15:51:03PROCEDURE: CT ANGIO CHEST WITH CONTRAST - [...] cholecystectomy. A left adrenal 2.7cm nodule suspected. [facility] Whole Uvbnx6720-96-79 14:33:11* Test Item Value Reference Range Interpretation Comme nts LACTIC ACID (test code = 2520802248) 4.04 mmol/L 0.50-2.20 H QUES Lab Interpretation (test cod e = 47989-8) [facility] Whole Sqjzk3958-36-77 14:33:11* Test Item Value Reference Range Interpretation Comme nts LACTIC ACID (test code = 2643687931) 4.04 mmol/L 0.50-2.20 H QUES Lab Interpretation (test cod e = 22282-5) [facility] Whole Cqeuz0755-45-50 14:33:11* Test Item Value Reference Range Interpretation Comme nts LACTIC ACID (test code = 1048837214) 4.04 mmol/L 0.50-2.20 H QUES Lab Interpretation (test cod e = 44357-4) Abnormal [facility] GLUCOSE (AUTOMATED)2023-11-22 13:26:51* Test Item Value Reference Range Interpretation Comme nts POCT GLU (test code = 6852407784) 180 mg/dL 70-110 H Notified Provide r Lab Interpretation (test code = 49957-4) Abnormal [facility] GLUCOSE (AUTOMATED)2023-11-22 13:26:51* Test Item Value Reference Range Interpretation Comme nts POCT GLU (test code = 3847883219) 180 mg/dL 70-110 H Notified Provide r Lab Interpretation (test code = 07467-1) Abnormal [facility] GLUCOSE (AUTOMATED)2023-11-22 13:26:51* Test Item Value Reference Range Interpretation Comme nts POCT GLU (test code = 5231322764) 180 mg/dL 70-110 H Notified Provide r Lab Interpretation (test code = 36637-5) [facility]+ VW [id number] 09:05:30 Exam: XR SHOULDER 2+ VW RIGHT, 11/22/2023 1:45 AM. Ordering Physician: IVIS MCDERMOTT. History: R arm injury . Technique: Routine view(s) XR SHOULDER 2+ VW RIGHT. Comparison: None. Findings: No evidence of traumatic malalignment. No acute fracture. 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 Eburnation of thegreater tuberosity, sequela of chronic rotator cuff injury. No focalsofttissue swelling. Lungs are clear as visualized. Cervical fusion. [facility] [id number] 09:05:30 Exam: XR SHOULDER 2+ VW RIGHT, 11/22/2023 1:45 AM. Ordering Physician: IVIS MCDERMOTT. History: R arm injury . Technique: Routine view(s) XR SHOULDER 2+ VW RIGHT. Comparison: None. Findings: No evidence of traumatic malalignment. No acute fracture. 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 Eburnation of thegreater tuberosity, sequela of chronic rotator cuff injury. No focalsofttissue swelling. Lungs are clear as visualized. Cervical fusion. [facility] LOWER EXTREMITY VEIN WITH COMPRESSION BILATERAL (ONLY [...] on the right. No DVT on theleft.[facility] LOWER EXTREMITY VEIN WITH COMPRESSION BILATERAL (ONLY [...] waveforms on the right. No DVT on theleft.[facility]anoLactic Acid Whole Blood 2023-11-22 08:16:23* Test Item Value Reference Range Interpretation Comme nts LACTIC ACID (test code = 0508003527) 3.93 mmol/L 0.50-2.20 H Lab Interpretation (test cod e = 57336-7) Abnormal [facility]anoLactic Acid Whole [id number] 08:16:23* Test Item Value Reference Range Interpretation Comme nts LACTIC ACID (test code = 6086784452) 3.93 mmol/L 0.50-2.20 H Lab Interpretation (test cod e = 65219-2) Abnormal [facility]anoLactic Acid Whole [id number] 08:16:23* Test Item Value Reference Range Interpretation Comme nts LACTIC ACID (test code = 4833363136) 3.93 mmol/L 0.50-2.20 H Lab Interpretation (test cod e = 97838-9) Abnormal [facility]anoProthrombin Time / [id number] 05:00:31* Test Item Value Reference Range Interpretation Comme [facility] PROTIME PATIENT (test code = 5964-2) 15.4 10.1-12.6 H INR (test code = 6301-6) 1.3 Normal INR <1.1; Warfarin Therapeutic range 2.0 to 3.0 or 2.5 to 3.5, depending upon the indications. Lab Interpretation (test code = 45753-3) Abnormal [facility]anoaPTT2024-05-05 05:00:31* Test Item Value Reference Range Interpretation Comme [facility] APTT Patient (test code = 3173-2) 27 26-36 LYNDSAY (test code = LYNDSAY) The [facility] patient population mean normal value for aPTT is 30 seconds. Lab Interpretation (test code = 31201-8) Normal [facility]anoProthrombin Time / [id number] 05:00:31* Test Item Value Reference Range Interpretation Comme [facility] PROTIME PATIENT (test code = 5964-2) 15.4 10.1-12.6 H INR (test code = 6301-6) 1.3 Normal INR <1.1; Warfarin Therapeutic range 2.0 to 3.0 or 2.5 to 3.5, depending upon the indications. Lab Interpretation (test code = 59563-3) Abnormal [facility]anoaPTT2024-05-05 05:00:31* Test Item Value Reference Range Interpretation Comme nts APTT Patient (test code = 3173-2) LYNDSAY (test code = LYNDSAY) The [facility] patient population mean normal value for aPTT is 30 seconds. Lab Interpretation (test code = 46555-9) Normal [facility]anoProthrombin Time / [id number] 05:00:31* Test Item Value Reference Range Interpretation Comme nts PROTIME PATIENT (test code = 5964-2) 15.4 10.1-12.6 H INR (test code = 6301-6) 1.3 Normal INR <1.1; Warfarin Therapeutic range 2.0 to 3.0 or 2.5 to 3.5, depending upon the indications. Lab Interpretation (test code = 49435-1) Abnormal [facility]anoaPTT2024-05-05 05:00:31* Test Item Value Reference Range Interpretation Comme [facility] APTT Patient (test code = 3173-2) LYNDSAY (test code = LYNDSAY) The [facility] patient population mean normal value for aPTT is 30 seconds. Lab Interpretation (test code = 21422-2) Normal [facility]anoThyroid Stimulating Kdtimoc2646-81-31 04:25:31 * Test Item Value Reference Range Interpretation Comme nts TSH (test code = 0609657610) 5.26 0.45-4.70 H Lab Interpretation (test cod e = 97471-8) Abnormal [facility]anoThyroid Stimulating Mkdmtaj0365-58-97 04:25:31 * Test Item Value Reference Range Interpretation Comme nts TSH (test code = 3348303340) 5.26 0.45-4.70 H Lab Interpretation (test cod e = 52439-2) Abnormal [facility]anoThyroid Stimulating Fmzkimj9125-12-60 04:25:31 * Test Item Value Reference Range Interpretation Comme nts TSH (test code = 5804355998) 5.26 0.45-4.70 H Lab Interpretation (test cod e = 10013-0) Abnormal [facility] Irtf3325-65-73 04:18:14Megan Rondon MD ? ? 11/21/2023 11:18 [...] of separately billable procedures and treating other patients.[facility] [id number] 04:11:28* Test Item Value Reference Range Interpretation Comme nts FREE T4 (test code = 3547964761) 1.07 0.78-2.20 Lab Interpretation (test cod e = 79181-3) Normal [facility] [id number] 04:11:28* Test Item Value Reference Range Interpretation Comme nts FREE T4 (test code = 6310325716) 1.07 0.78-2.20 Lab Interpretation (test cod e = 59012-8) Normal [facility] [id number] 04:11:28* Test Item Value Reference Range Interpretation Comme nts FREE T4 (test code = 8573666638) 1.07 0.78-2.20 Lab Interpretation (test cod e = 75903-6) Normal [facility]anoXR CHEST 1 [id number] 03:22:56Exam: Chest (1 View), 11/21/2023 9:15 PM. Ordering Physician: MEGAN RONDON. History: Chest pain. Technique: One view of the chest. Comparison: 12/11/2022. Findings: Cardiac silhouette is moderately enlarged. There is no pneumothorax. Thereis no consolidation or pleural effusion. Stable mild diffuse interstitialopacities are noted. Pleural and diaphragmatic contours are normal. Changesof anterior ce rvical discectomy and fusion are seen.[facility]anoXR CHEST 1 [id number] 03:22:56Exam: Chest (1 View), 11/21/2023 9:15 PM. Ordering Physician: MEGAN RONDON. History: Chest pain. Technique: One view of the chest. Comparison: 12/11/2022. Findings: Cardiac silhouette is moderately enl arged. There is no pneumothorax. Thereis no consolidation or pleural effusion. Stable mild diffuse interstitialopacities are noted. Pleural and diaphragmatic contours are normal. Changesof anterior cervical discectomy and fusion are seen. [facility]anoRADIOLOGY [id number] 18:34:06 Ordered by an unspecified provider.[facility] PlanoRADIOLOGY TTLUXTBHWIWVS8981-83-66 19:18:01Ordered by an unspecified provider.[facility] PlanoBLOOD WSVJQTP0184-32-96 07:00:10* Test Item Value Reference Range Interpretation Comme nts CULTURE (BEAKER) (test code = 1095) No growth in 5 days XR KNEE 3 VIEWS LEFT Non-Weight Mkuxgip7660-13-58 09:27:00XR KNEE 3 VIEWS LEFT CLINICAL INDICATION: S/p fall COMPARISON: None FINDINGS: 3views of the left kne e. There is no fracture or malalignment. The femorotibial andfemoropatellar joint spaces are intact. No joint fluid is demonstrated.Surrounding soft tissues are unremarkable. Scattered atheroscleroticvascular calcifications.[facility] CenterXR KNEE 3 VIEWS [id number] 09:27:00 [facility] : 1970 Sex: FXR KNEE 3 VIEWS LEFT CLINICAL INDICATION: S/p fall COMPARISON: NoneFINDINGS: 3views of the left knee.There is no fracture or malalignment. The femorotibial andfemoropatellar joint spaces are intact.No joint fluid is demonstrated.Surrounding soft tissues are unremarkable. Scattered atheroscleroticvascular calcifications.IMPRESSION: No acute fracture or malalignment of the knee Electronically Signed By: Maxim Sultana09/08/2023 09:29 CDTWorkstation Name: [id number] qwvro2698-98-43 08:53:50* Test Item Value Reference Range Interpretation Comme nts POC-Glucose Meter (test code = 1538) 101 mg/dL 70-110 : TESTED AT [facility] [address] [facility], [address]: Proof Press Operator/Supervisor Painting Shipyard ID = [id number] for Marie Delacruz Lab Interpretation (test code = 73992-0) Normal [facility] CenterPOCT-GLUCOSE [id number] 08:53:50* Test Item Value Reference Range Interpretation Comme nts POC-GLUCOSE METER (BEAKER) (test code = 1538) 101 mg/dL 70-110 : TESTED AT [facility] [address] [facility], [address]: Proof Press Operator/Supervisor Painting Shipyard ID = [id number] for Marie Delacruz BASIC METABOLIC [id number] 05:40:45* Test Item Value Reference Range Interpretation [...] GFR is not applicable for dialysis patients Proof Press Operator ID - [id number] 05:40:45* Test Item Value Reference Range Interpretation Comme nts MAGNESIUM (BEAKER) (test cod e = 627) 2.1 mg/dL 1.6-2.6 Proof Press Operator ID - [id number] 05:40:45* Test Item Value Reference Range Interpretation Comme nts PHOSPHORUS (BEAKER) (test co de = 604) 5.0 mg/dL 2.3-4.7 H Proof Press Operator ID - ADMINCBC W/PLT COUNT & AUTO [id number] 04:49:23* Test Item Value Reference Range Interpretation [...] code = 2801) 0.40 % 0.00-1.00 POCT-GLUCOSE [id number] 21:40:23* Test Item Value Reference Range Interpretation Comme nts POC-GLUCOSE METER (BEAKER) (test code = 1538) 144 mg/dL 70-110 H : TESTED AT [facility] [address] [facility], [address]: Proof Press Operator/Supervisor Painting Shipyard ID = [id number] for Baeza, Idana Venous doppler legs iaodvaaoj6772-04-85 14:27:12PV LAB - Lower Extremities DVT Study Demographics Patient Name YUE ROMERO Date of Study 09/07/2023 [place] Age 53 Visit Number [id number] Gender Female Accession Number [id number] Dateof 1970 Referring EDWARD FARRELL Room Number 2263 Physician Rigger Third Adalberto Wood Interpreting John Solorio, Physician FellowProcedureType [...] in cm/s ; Diameters are measured in [facility] [id number] 04:05:54* Test Item Value Reference Range Interpretation Comme nts MAGNESIUM (BEAKER) (test code = 627) 2.0 mg/dL 1.6-2.6 Specimen sligh tly hemolyzed Proof Press Operator ID Yarelis CORREA [id number] 04:05:54* Test Item Value Reference Range Interpretation Comme nts PHOSPHORUS (BEAKER) (test code = 604) 4.5 mg/dL 2.3-4.7 Specimen sligh tly hemolyzed Proof Press Operator ID - MADELINE WBASIC METABOLIC [id number] 04:05:54* Test Item Value Reference Range Interpretation [...] GFR is not applicable for dialysis patients Proof Press Operator ID - MADELINE WCBC W/PLT COUNT & AUTO [id number] 03:40:48* Test Item Value Reference Range Interpretation [...] code = 2801) 0.30 % 0.00-1.00 POCT-GLUCOSE [id number] 21:28:35* Test Item Value Reference Range Interpretation Comme nts POC-GLUCOSE METER (BEAKER) (test code = 1538) 127 mg/dL 70-110 H : TESTED AT [address], [address]: Proof Press Operator/Supervisor Painting Shipyard ID = [id number] for Ryan Morin POCT-GLUCOSE [id number] 18:49:21* Test Item Value Reference Range Interpretation Comme nts POC-GLUCOSE METER (BEAKER) (test code = 1538) 122 mg/dL 70-110 H : TESTED AT [address], [address]: Proof Press Operator/Supervisor Pain[employer]yard ID = [id number] for Lauren Santillan POCT-GLUCOSE [id number] 13:27:27* Test Item Value Reference Range Interpretation Comme nts POC-GLUCOSE METER (BEAKER) (test code = 1538) 130 mg/dL 70-110 H : TESTED AT [address], [address]: Proof Press Operator/Supervisor Painting [employer]yard ID = [id number] for Lauren Santillan [id number] 09:09:14* Test Item Value Reference Range Interpretation Comme nts MAGNESIUM (BEAKER) (test cod e = 627) 2.2 mg/dL 1.6-2.6 [id number] 09:09:14* Test Item Value Reference Range Interpretation Comme nts PHOSPHORUS (BEAKER) (test co de = 604) 4.8 mg/dL 2.3-4.7 H BASIC METABOLIC [id number] 09:09:14* Test Item Value Reference Range Interpretation [...] is not applicable for dialysis patients POCT-GLUCOSE [id number] 08:33:30* Test Item Value Reference Range Interpretation Comme nts POC-GLUCOSE METER (BEAKER) (test code = 1538) 132 mg/dL 70-110 H : TESTED AT [facility] [address] [place], [address]: Proof Press Operator/Supervisor Painting [employer]yard ID = [id number] for Lauren Santillan CBC W/PLT COUNT & AUTO [id number] 05:47:59* Test Item Value Reference Range Interpretation Comme nts WHITE BLOOD CELL COUNT (BEAK ER) (test code = 775) 7.2 K/ L 3.5-10.5 RED BLOOD CELL COUNT (BEAKER ) (test code = 761) 4.71 M/ L 3.93-5.22 HEMOGLOBIN (BEAKER) (test co de = 410) 12.1 GM/DL 11.2-15.7 HEMATOCRIT (BEAKER) (test co de = 411) 40.7 % 34.1-44.9 MEAN CORPUSCULAR VOLUME (SGAE KER) (test code = 753) 86 fL [...] code = 2801) 0.40 % 0.00-1.00 POCT-GLUCOSE [id number] 21:35:37* Test Item Value Reference Range Interpretation Comme nts POC-GLUCOSE METER (LATOYA) (test code = 1538) 129 mg/dL 70-110 H : TESTED AT [facility] [address] [place], [address]: Proof Press Operator/Supervisor Painting Shipyard ID = [id number] for Ryan oMrin MR Brain Without & With IV Ejfxrmis0628-65-54 15:49:58MR BRAIN WITH & WITHOUT IV CONTRAST [...] limits. No obstructive paranasal sinus disease. Additionalfindings: None.[facility] CenterMR BRAIN WITH & WITHOUT IV [id number] 15:49:58 [facility] : 1970 Sex: [...] Signed By: Zeinab Dempsey09/05/2023 15:53 CDTWorkstation Name: [id number] METER 2023-09-05 08:34:25* Test Item Value Reference Range Interpretation Comme nts POC-GLUCOSE METER (BEAKER) (test code = 1538) 115 mg/dL 70-110 H : TESTED AT [facility] [address] [facility], [address]: Proof Press Operator/Supervisor Painting Shipyard ID = [id number] for DOMINGA AMADOR BASIC METABOLIC [id number] 06:06:56* Test Item Value Reference Range Interpretation [...] GFR is not applicable for dialysis patients Proof Press Operator ID - [id number] 06:06:56* Test Item Value Reference Range Interpretation Comme nts MAGNESIUM (BEAKER) (test cod e = 627) 2.2 mg/dL 1.6-2.6 Proof Press Operator ID - [id number] 06:06:56* Test Item Value Reference Range Interpretation Comme nts PHOSPHORUS (BEAKER) (test co de = 604) 3.8 mg/dL 2.3-4.7 Proof Press Operator ID - ADMINCBC W/PLT COUNT & AUTO [id number] 05:29:32* Test Item Value Reference Range Interpretation [...] code = 2801) 0.50 % 0.00-1.00 POCT-GLUCOSE [id number] 04:55:18* Test Item Value Reference Range Interpretation Comme nts POC-GLUCOSE METER (BEAKER) (test code = 1538) 99 mg/dL 70-110 : TESTED AT [address], [address]: Proof Press Operator/Supervisor Painting Shipyard ID = [id number] for MikelKyahawn POCT-GLUCOSE DCQWE3983-03-07 21:49:23* Test Item Value Reference Range Interpretation Comme nts POC-GLUCOSE METER (BEAKER) (test code = 1538) 124 mg/dL 70-110 H : TESTED AT [address], [address]: Proof Press Operator/Supervisor Painting Shipyard ID = [id number] for Mikel, Kyahawn POCT-GLUCOSE [id number] 15:55:53* Test Item Value Reference Range Interpretation Comme nts POC-GLUCOSE METER (BEAKER) (test code = 1538) 126 mg/dL 70-110 H : TESTED AT [address], [address]: 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 Influenza A RT-PCR (test code = 31085-6) Negative Negative The Flu A target nucleic acids are not detected in this specimen. Influenza B RT-PCR (test code = 97119-7) Negative Negative The Flu B target nucleic acids are not detected in this specimen. RSV by RT-PCR (test code = 61308-4) Negative Negative The RSV target nucleic acids [...] SARS-CoV-2/Flu/RSV by their healthcare provider. Results from [facility] Xpert Xpress SARS-CoV-2/Flu/RSV test should be [...] the Act. Fact Sheet for Healthcare Providers:https://w TwitJump/Docu ments/Xpert%20Xpres s%20SARS%20CoV-2/Fa ct%20Sheets/302-390 2%27HATC-ZCR-7%20HE ALTHCARE%20PROVIDER S%20FACT%20SHEET.pd f Fact Sheet for Healthcare Patients:https://maria elena Doctor.com/Docum ents/Xpert%20Xpress %20SARS%20Cov-2/Fac t%20Sheets/302-3801 %47EYTY-FQR-7%20PAT IENT%20FACT%20SHEET .pdf Lab Interpretation (test code = 62197-3) Normal [facility] CenterARS-COV2/INFLUENZA/RSV TS-[id number] 12:18:09* Test Item Value Reference Range Interpretation Comme nts SARS-COV2/RT-PCR (test code = 3533363) Negative Negative The SARS-CoV-2 t arget nucleic [...] provider. INFLUENZA A RT-PCR (test code = 0817953) Negative Negative The Flu A target nucleic acids are not detected in this specimen. INFLUENZA B RT-PCR (test code = 4671021) Negative Negative The Flu B target nucleic acids are not detected in this specimen. RSV RT-PCR (test code = 8044527) Negative Negative The RSV target n ucleic [...] SARS-CoV-2/Flu/RSV by their healthcare provider. Results from [facility] Xpert Xpress SARS-CoV-2/Flu/RSV test should be [...] 564(g) of the Act.Fact Sheet for Healthcare Providers:https://www.DTVCast.Lexdir/Documents/Xpert%20Xpress%20SARS%20CoV-2/Fact%2 0Sheets/302-3902%13MFTU-VTI-0%20HEALTHCARE%20PROVIDERS%20FACT%20SHEET.pdfFact Sheet for Healthcare Patients:https://maria elena jackson.Red-rabbit/Documents/Xpert%20Xpress%20SARS%20Cov-2/Fact%20Sheets/302-3091%20S ARS-COV-2%20PATIENT%20FACT%20SHEET.pdfPOCT-GLUCOSE [id number] 11:08:35* Test Item Value Reference Range Interpretation Comme nts POC-GLUCOSE METER (BEAKER) (test code = 1538) 111 mg/dL 70-110 H : TESTED AT [facility] [address] [facility], [address]: Proof Press Operator/Supervisor Painting Shipyard ID = [id number] for HemTramaine montgomery POCT-GLUCOSE [id number] 08:16:42* Test Item Value Reference Range Interpretation Comme nts POC-GLUCOSE METER (BEAKER) (test code = 1538) 108 mg/dL 70-110 : TESTED AT [facility] [address] [facility], [address]: Proof Press Operator/Supervisor Painting Shipyard ID = [id number] for Sam Beata MR spine lumbar without IV sbjyykcn2343-25-46 07:58:49MR LUMBAR SPINE WITHOUT IV CONTRAST, MR [...] Posterior ligament ossifications at the calcifications at G54-W74oquivgi moderate spinal canal stenosisPosterior disc osteophyte at the T11-T12 level causing mild spinal canalstenosis The spinal cord is normal in caliber and signal intensity. There is no significant foraminal or spinal canal stenosis. 2.1 x 2.3 cm left adrenal nodule, incompletely characterized Paraspinal soft tissues are unremarkable. Lumbar spine: Postoperative changes from posterior decompression at the L3 and L8cdbpcz. A 1.3 x 1.5 cm (AP by [...] facet arthropathy with moderatebilateral neural foraminal stenosisCHI Torrance Memorial Medical CenterMR thoracic spine without IV ndljhcoa7927-73-63 07:58:49MR LUMBAR SPINE WITHOUT IV CONTRAST, MR [...] Posterior ligament ossifications at the calcifications at A28-T39zpwsesm moderate spinal canal stenosisPosterior disc osteophyte at the T11-T12 level causing mild spinal canalstenosis The spinal cord is normal in caliber and signal intensity. There is no significant foraminal or spinal canal stenosis. 2.1 x 2.3 cm left adrenal nodule, incompletely characterized Paraspinal soft tissues are unremarkable. Lumbar spine: Postoperative changes from posterior decompression at the L3 and M5mziorw. A 1.3 x 1.5 cm (AP by [...] facet arthropathy with moderatebilateral neural foraminal stenosisCHI [facility] Memorial Medical CenterMR spine cervical without IV grghbhep4616-24-54 07:58:49MR LUMBAR SPINE WITHOUT IV CONTRAST, MR [...] Posterior ligament ossifications at the calcifications at X60-L63idbzyag moderate spinal canal stenosisPosterior disc osteophyte at the T11-T12 level causing mild spinal canalstenosis The spinal cord is normal in caliber and signal intensity. There is no significant foraminal or spinal canal stenosis. 2.1 x 2.3 cm left adrenal nodule, incompletely characterized Paraspinal soft tissues are unremarkable. Lumbar spine: Postoperative changes from posterior decompression at the L3 and T2qyossz. A 1.3 x 1.5 cm (AP by [...] facet arthropathy with moderatebilateral neural foraminal stenosisCHI [facility]rance Memorial Medical CenterMR CERVICAL SPINE WITHOUT IV [id number] 07:58:49 [facility] : 1970 Sex: FMR LUMBAR [...] ligament ossifications at the calcifications at T10- P31bmpcgcd moderate spinal canal stenosisPosterior disc osteophyte at the T11- T12 level causing mild spinal canalstenosisThe spinal cord is normal in caliber and signal intensity. There is no significant foraminal or spinal canal stenosis.2.1 x 2.3 cm left adrenal nodule, incompletely characterizedParaspinal soft tissues are unremarkable.Lumbar spine:Postoperative changes from posterior decompression at the L3 and S2yteuyg. A 1.3 x 1.5 cm (AP by [...] Signed By: Maxim Sultana09/04/2023 08:00 CDTWorkstation Name: [id number] THORACIC SPINE WITHOUT IV [id number] 07:58:49 [facility] 1970 Sex: [...] ligament ossifications at the calcifications at T10- H21mtmaonh moderate spinal canal stenosisPosterior disc osteophyte at the T11- T12 level causing mild spinal canalstenosisThe spinal cord is normal in caliber and signal intensity. There is no significant foraminal or spinal canal stenosis.2.1 x 2.3 cm left adrenal nodule, incompletely characterizedParaspinal soft tissues are unremarkable.Lumbar spine:Postoperative changes from posterior decompression at the L3 and E3elqrig. A 1.3 x 1.5 cm (AP by [...] Signed By: Maxim Sultana09/04/2023 08:00 CDTWorkstation Name: [id number] LUMBAR SPINE WITHOUT IV [id number] 07:58:49 [facility] : 1970 Sex: [...] spine.Posterior ligament ossifications at the calcifications at T24-B51dgiyppr moderate spinal canal stenosisPosterior disc osteophyte at the T11-T12 level causing mild spinal canalstenosisThe spinal cord is normal in caliber and signal intensity. There is no significant foraminal or spinal canal stenosis.2.1 x 2.3 cm left adrenal nodule, incompletely characterizedParaspinal soft tissues are unremarkable.Lumbar spine:Postoperative changes from posterior decompression at the L3 and X8ydqoqw. A 1.3 x 1.5 cm (AP by [...] Signed By: Maxim Sultana09/04/2023 08:00 CDTWorkstation Name: [id number] 07:46:14 * Test Item Value Reference Range Interpretation Comme nts FERRITIN (BEAKER) (test code = 361) 31.77 ng/mL 5.00-275.00 Proof Press Operator ID - hgIRON, TIBC, % SAT. (WITHOUT FERRITIN)2023-09-04 07:24:52* Test Item Value Reference Range Interpretation Comme nts IRON (BEAKER) (test code = 547) 22.0 ug/dL 40.0-160.0 L TOTAL IRON BINDING CAPACITY (BEAKER) (test code = 769) 369 ug/dL 250-450 IRON % SATURATION (2) (BEAKE R) (test code = 2590) 6 % 20-55 L Proof Press Operator ID - hgCT spine thoracic without IV virsnzuq8024-09-04 05:42:45EXAM: CT THORACIC SPINE WITHOUT IV CONTRAST, [...] Bones/alignment: Age- indeterminate nondisplaced fracture of the T7vlyogeozl elements, predominantly involving the lamina and pinusprocess.. [...] Postoperative changes in themidline posterior lumbar soft tissues.[facility] CenterCT spine lumbar without IV axpaglke7296-61-08 05:42:45EXAM: CT THORACIC SPINE WITHOUT IV CONTRAST, [...] Bones/alignment: Age- indeterminate nondisplaced fracture of the I5qqauekatl elements, predominantly involving the lamina and pinusprocess.. [...] Postoperative changes in themidline posterior lumbar soft tissues.[facility] CenterCT LUMBAR SPINE WITHOUT IV [id number] 05:42:45[facility] : 1970 Sex: [...] spine:Bones/alignment: Age- indeterminate nondisplaced fracture of the M8favknzyvh elements, predominantly i nvolving the lamina and [...] Signed By: Suzan Weaver09/04/2023 05:45 CDTWorkstation Name: [id number] THORACIC SPINE WITHOUT IV WPMOPLQC5278-33-01 05:42:45 [facility] YUE HEATHERGRACIELA MCCABE : 1970 [...] spine:Bones/alignment: Age- indeterminate nondisplaced fracture of the P4pgcbxxwku elements, predominantly i nvolving the lamina and [...] Signed By: Suzan Weaver09/04/2023 05:45 CDTWorkstation Name: [id number] 2023-09-04 04:44:34* Test Item Value Reference Range Interpretation Comme nts FIBRINOGEN LEVEL (BEAKER) (t est code = 658) 410 mg/dl 225-434 Urinalysis without Bkfchfyhlbu8224-58-96 03:58:52* Test Item Value Reference Range Interpretation Comme nts Color, UA (test code = 5778-6) Light Yellow Clarity, UA (test code = 5767-9) Hazy Specific Trinity, UA (test code = 5811-5) 1.017 1.001-1.035 pH, UA (test code = 5803-2) 6 5.0-8.0 Protein, UA (test code = 61527-4) 10 mg/dL Negative A Glucose, UA (test code = 365) Negative Negative Ketones, UA (test code = 2514-8) Trace Negative A Bilirubin, UA (test code = 55913-5) Negative Negative Blood, UA (test code = 64015-3) Trace Negative A Nitrite, UA (test code = 5802-4) Negative Negative Leukocytes, UA (test code = 5799-2) Negative Negative Urobilinogen, UA (test code = 06022-1) 0.2 0.2-1.0 Specimen Source (test code = 2795) LYNDSAY (test code = LYNDSAY) Proof Press Operator ID - [auto]Proof Press Operator ID - tech Lab Interpretation (test code = 25701-3) Abnormal [facility] CenterURINALYSIS WITHOUT WETQCTSYKVM0073-07-91 03:58:52* Test Item Value Reference Range Interpretation [...] 0.2 0.2-1.0 SOURCE(BEAKER) (test code = 2795) Proof Press Operator ID - [auto]Proof Press Operator ID - techCBC W/PLT COUNT & AUTO [...] 2801) 0.70 % 0.00-1.00 Rapid drug screen, muzka2089-09-08 02:20:15* Test Item Value Reference Range Interpretation Comme nts Barbiturate Screen (test code = 58974-6) Negative Negative Benzodiazepine Screen (test code = 92491-9) Negative Negative Cocaine (Metab.) Screen (test code = 3397-7) Positive Negative A Methadone Screen (test code = 68054-3) Negative Negative Opiate Screen (test code = 82124-0) Negative Negative Cannabinoid Screen (test code = 98868-9) Positive Negative A Amph/Methamph Screen (test code = 85189-4) Negative Negative Phencyclidine Screen (test code = 86894-6) Negative Negative pH, UA (test code = 5803-2) 6 5.0-8.0 LYNDSAY (test code = LYNDSAY) DRUG CUTOFF CONC.Cocaine 300 ng/mL Cannabinoid 50 ng/mLBenzodiazepine 200 ng/mLBarbiturate 200 ng/mLPhencyclidine 25 ng/mLOpiate 300 ng/mLMethadone 300 ng/mLAmphetamine/ 1000 ng/mL Methamphetamine This assay provides an unconfirmed qualitative test result for the clinical management of patients in emergency situations. Chain of custody not maintained. Some jzun-fun-tzcqsnp medications, as well as adulterants, may cause inaccurate results. Clinical correlation should be applied. A more comprehensive drug screen or confirmation of a detected drug may be performed upon request.Proof Press Operator ID - ADMIN Lab Interpretation (test code = 72803-8) Abnormal [facility] CenterRAPID DRUG SCREEN, [id number] 02:20:15* Test Item Value Reference Range Interpretation [...] situations. Chain of custody not maintained. Some qzby-xud-ducvfin medications, as well as adulterants, may cause inaccurate results. Clinical correlation should be applied. A more comprehensive drug screen or confirmation of a detected drug may be performed upon request.Proof Press Operator ID - ADMINB-TYPE NATRIURETIC FACTOR (BNP)2023-09-04 02:11:53* Test Item Value Reference Range Interpretation Comme nts B-TYPE NATRIURETIC PEPTIDE (BEAKER) (test code = 700) 1761 pg/mL 0-100 H Proof Press Operator ID - ADMINLACTIC ACID, [id number] 02:10:37* Test Item Value Reference Range Interpretation Comme nts LACTATE BLOOD VENOUS (2) (BEAKER) (test code = 2872) 1.04 mmol/L 0.50-2.00 Specimen slightl y hemolyzed Proof Press Operator ID - KAGVGVJBTYLKEVJ6708-52-88 02:04:37* Test Item Value Reference Range Interpretation Comme nts PHOSPHORUS (BEAKER) (test code = 604) 4.2 mg/dL 2.3-4.7 Specimen sligh tly hemolyzed Proof Press Operator ID - ADMINCOMPREHENSIVE METABOLIC [id number] 02:04:37* Test Item Value Reference Range Interpretation [...] GFR is not applicable for dialysis patients Proof Press Operator ID - [id number] 02:04:36* Test Item Value Reference Range Interpretation Comme nts MAGNESIUM (LATOYA) (test code = 627) 2.1 mg/dL 1.6-2.6 Specimen sligh tly hemolyzed Proof Press Operator ID - GIPHEL-YHTBB9036-33-16 01:45:13* Test Item Value Reference Range Interpretation [...] code = 760) 28.5 seconds 22.5-36.0 PROTHROMBIN TIME/SXW0830-30-74 01:42:15* Test Item Value Reference Range Interpretation Comme nts PROTIME (LATOYA) (test code = 759) 15.8 seconds 11.9-14.2 H INR (LATOYA) (test code = 370) 1.25 <=5.90 RECOMMENDED COUMADIN/WARFARIN INR THERAPY RANGESSTANDARD DOSE: 2.0 - 3.0 Includes: PROPHYLAXIS for venous thrombosis, systemic embolization; TREATMENT for venous thrombosis and/or pulmonary embolus.HIGH RISK: Target INR is 2.5-3.5 for patients with mechanical heart valves.VZD-TIJMRDK3913-26-16 00:00:00Ordered by an unspecified provider.[facility] CenterLactic Acid Whole Blood 2023-08-12 20:51:22* Test Item Value Reference Range Interpretation Comme nts LACTIC ACID (test code = 6952543256) 1.56 mmol/L 0.50-2.20 Lab Interpretation (test cod e = 89673-0) [facility]anoBL[facility] [id number] 07:00:09* Test Item Value Reference Range Interpretation Comme nts CULTURE (BEAKER) (test code = 1095) No growth in 5 days T-SPOT(R).[id number] 18:35:00* Test Item Value Reference Range Interpretation Comme nts T-SPOT.TB (test code = 5874815) Negative SeeBelow Normal Value: Ne gativeA negative [...] CORRECTED FOR NEG CONTROL (test code = 0604733) 1 PANEL B SPOT COUNT CORRECTED FOR NEG CONTROL (test code = 5682560) 0 NEGATIVE CONTROL (test code = 2678695) Passed POSITIVE CONTROL (test code = 5140354) Passed LYNDSAY (test code = LYNDSAY) [id number] [facility] CenterT-SPOT(R).[id number] 18:35:00* Test Item Value Reference Range Interpretation Comme nts T-SPOT.TB (test code = 41090-4) Negative SeeBelow Normal Value: Ne gativeA negative [...] CORRECTED FOR NEG CONTROL (test code = 32532-7) 0 NEGATIVE CONTROL (test code = 07502-8) Passed POSITIVE CONTROL (test code = 90032-6) Passed LYNDSAY (test code = LYNDSAY) [id number] [facility] CenterTransesophageal lavn6710-79-13 13:41:18 Transesophageal Echocardiography Report (CHETAN) Demographics Patient Name YUE ROMERO Date of Study 06/16/2023 [place] Gender Female Visit Number [id number] Race Room Number 1055 Number Date of 1970 Referring Physician Age 53 year(s) Rigger Third Interpreting Physician Brian MDProcedure Type of Study [...] valve.Tricuspid Valve Partially visualized. Pulmonic Valve Not visualized.[facility] CenterTransesophageal echo 2023-06-16 13:41:18Transesophageal Echocardiography Report (CHETAN) Demographics Patient Name YUE ROMERO Date of Study 06/16/2023 [place] Gender Female Visit Number [id number] Race Room Number 1055 Number Date of 1970 Referring Physician Age 53 year(s) Rigger Third Interpreting Physician Brian MDProcedure Type of Study [...] Tricuspid Valve Partially visualized. Pulmonic Valve Not visualized.[facility] tnwolp4988-72-28 09:55:41* Test Item Value Reference Range Interpretation Comme nts Result (test code = 6463-4) No MRSA isolated [facility] CenterMRSA OYTHOR1303-19-90 09:55:41* Test Item Value Reference Range Interpretation Comme nts CULTURE ([employer]) (test code = 1095) No MRSA isolated CRYPTOCOCCAL [id number] 15:50:36* Test Item Value Reference Range Interpretation Comme nts CRYPTOCOCCAL ANTIGEN, SERUM ([employer]) (test code = 1828) Negative Negative, Interference SPUTUM CULTURE + GRAM [id number] 10:30:11* Test Item Value Reference Range Interpretation Comme nts CULTURE ([employer]) (test code = 1095) PSEUDOMONAS AERUGINOSA A [...] GRAM STAIN RESULT (BEAKER) (test code = 084846) 10-15 epithelial cells GRAM STAIN RESULT (BEAKER) (test code = 636572) 2+ gram positive cocci in chains and pairs GRAM STAIN RESULT (BEAKER) (test code = 346458) 1+ gram negative rods GRAM STAIN RESULT (BEAKER) (test code = 486498) 1+ yeast 2+ Normal respiratory rebel presentVANCOMYCIN LEVEL, [id number] 06:41:26* Test Item Value Reference Range Interpretation Comme nts VANCOMYCIN TROUGH (BEAKER) ( test code = 522) 17.0 ug/mL 10.0-20.0 Proof Press Operator ID - ADMINECHO W CONTRAST & [id number] 13:44:03Transthoracic Echocardiography Report (TTE) Demographics Patient Name YUE ROMERO Date of Study 06/14/2023 [place] Gender Female Visit Number [id number] Race Room Number 1055 Number Date of 1970 Referring Aydee Go MD Physician Age 53 year(s) Rigger Third James Albarran RDCS Interpreting Physician Brian MDProcedure [...] Velocity: 0.85 m/s Peak Gradient: 2.89 mmHgCHI [facility] Medical CenterECHO W CONTRAST & [id number] 13:44:03Transthoracic Echocardiography Report (TTE) Demographics Patient Name YUE ROMERO Date of Study 06/14/2023 [place] Gender Female Visit Number [id number] Race Room Number 1055 Number Date of 1970 Referring Aydee Go MD Physician Age 53 year(s) Rigger Third James Albarran RDCS Interpreting Physician Brian MDProcedure [...] Mild MV leaflet thickening. No evidence of mitralstenosis. Trace mitral regurgitation. Tricuspid Valve TV structure [...] Velocity: 0.85 m/s Peak Gradient: 2.89 mmHgCHI [facility] Medical CenterHEMOGLOBIN A1C 2023-06-14 09:26:42* Test Item Value Reference Range Interpretation Comme nts HEMOGLOBIN A1C ELECTROPHORESIS (BEAKER) (test code = 3811) 6.7 % See_Comment H [Automated me ssage] The system which generated this result transmitted reference range: <=5.6%. The reference range was not used to interpret this result as normal/abnormal. "The A1c is measured using a [facility]-certified method. HbA1c value equal to or greater than 6.5% as the diagnosis cutoff for diabetes. An HbA1c value of 5.7- 6.4% indicates increased risk for diabetes (prediabetes)."Proof Press Operator ID - ADMOperator ID - ADMECG 12 [id number] 09:06:12Ventricular Rate 97 BPMAtrial Rate 97 BPMP-R Interval 146 msQRS Duration 96 msQ-T Interval 378 msQTC Calculation(Bazett) 480 msP Frankton 68 degreesR Frankton 107 degreesT Frank[place] 18 degrees Suspect arm leadreversal, interpretation assumes no reversalNormal sinus rhythmRightward axisNonspecific T wave abnormalityAbnormal ECGWhen compared with ECG of 30-MAR-2023 13:06,QRS axis Shifted rightConfirmed by Luis Lopez ([id number]) on 06/14/2023 9:06:07 [facility]EC 12 wfif8657-08-09 09:06:12Ventricular Rate 97 BPMAtrial Rate 97 BPMP-R Interval 146 msQRS Duration 96 msQ-T Interval 378 msQTC Calculation(Bazett) 480 msP Frank[place] 68 degreesR [place] 107 degreesT [place] 18 degrees Suspect arm leadreversal, interpretation assumes no reversalNormal sinus rhythmRightward axisNonspecific T wave abno rmalityAbnormal ECGWhen compared with ECG of 30-MAR-2023 13:06,QRS axis Shifted rightConfirmed by Luis Lopez ([id number]) on 06/14/2023 9:06:07 [facility] HospitalBASIC METABOLIC [id number] 04:48:18* Test Item Value Reference Range Interpretation [...] GFR is not applicable for dialysis patients Proof Press Operator ID - ADMINCBC (HEMOGRAM ONLY)2023-06-14 04:22:50* [...] 413) 0 /100 WBC 0-0 Strep pneumoniae ucgpzis0556-71-03 23:34:41* Test Item Value Reference Range Interpretation Comme nts Strep pneumoniae Antigen (test code = 55394-8) Presumptive negative for pneumococcal pneumonia - see [...] the test. Lab Interpretation (test code = 41471-2) Normal [facility] CenterTREP PNEUMONIAE [id number] 23:34:41* Test Item Value Reference Range Interpretation [...] detection limit of the test. Legionella antigen, tngfk0359-13-29 23:29:07* Test Item Value Reference Range Interpretation Comme nts Legionella Urine Antigen (test code = 79460-8) Negative - see comment Negative Negative for L. pneumophila serogroup 1 antigen, suggesting no recent or current infection with this serogroup. Legionellosis cannot be ruled out since other serogroups and species may cause disease. Lab Interpretation (test code = 71128-9) Normal [facility] CenterLEGIONELLA ANTIGEN, [id number] 23:29:07* Test Item Value Reference Range Interpretation Comme nts L. PNEUMOPHILA SEROGP 1 UR AG (BEAKER) (test code = 1156) Negative - see comment Negative Negative for L. pneumophila serogroup 1 antigen, suggesting no recent or current infection with this serogroup. Legionellosis cannot be ruled out since other serogroups and species may cause disease. Venous doppler arm, [id number] 20:05:32PV LAB - Upper Extremities Veins Demographics Patient Name YUE ROMERO Date of Study 06/13/2023 [place] Age 53 Visit Number [id number] Gender Female Accession Number [id number] Date of 1970 Referring Marianela Collazo Room Number 1055 Physician Rigger Third Lisa Ruiz Interpreting John Solorio, Physician FellowProcedureType [...] in cm/s ; Diameters are measured in [facility], [id number] 20:05:32PV LAB - Upper Extremities Veins Demographics Patient Name YUE ROMERO Date of Study 06/13/2023 [place] Age 53 Visit Number [id number] Gender Female Accession Number [id number] Date ofBirth 1970 Referring radha Hamilton Dodiecarlottadebra Room Number 1055 Physician Rigger Third Lisa RuizInterpreting John Solorio, Physician FellowProcedureType of [...] in cm/s ; Diameters are measured in [facility] CenterHIV-1 ANTIGEN WITH HIV-1/2 [id number] 18:36:40* Test Item Value Reference Range Interpretation Comme nts HIV-1 ANTIGEN WITH HIV 1\\T\\2 ANTIBODY (2) (LATOYA) (test code = 2586) Nonreactive Nonreactive MR lumbar spine without & with IV sszdwebk9982-20-73 14:53:29MR LUMBAR SPINE WITH & WITHOUT IV [...] x 1.7x 1.7 cm. Dorsal paraspinal musculature A5kucdqccdokqggf. Postcontrast imaging demonstrates mild peripheralenhancement of the dorsal paraspinal fluid collection. Left adrenalgland 2.9 cm nodule.[facility] CenterMR lumbar spine without & with IV jsenkfiw3387-98-86 14:53:29MR LUMBAR SPINE WITH & WITHOUT IV [...] x 1.7x 1.7 cm. Dorsal paraspinal musculature A4hobjeuhulwjtsd. Postcontrast imaging demonstrates mild peripheralenhancement of the dorsal paraspinal fluid collection. Left adrenalgland 2.9 cm nodule.[facility] CenterMR LUMBAR SPINE WITH & WITHOUT IV [id number] 14:53:29[facility] : 1970 Sex: [...] 1.7 x 1.7 cm. Dorsal paraspinal musculature B1mgncndbubyhfmg. Postcontrast imaging demonstrates mild peripheralenhancement of the [...] Signed By: Ryan Buckley11/ 14:55 CDTWorkstation Name: [id number] KINASE (CK)2023-06-13 11:54:02* Test Item Value Reference Range Interpretation Comme nts CREATINE KINASE TOTAL (BEAKE R) (test code = 380) 43 U/L 29-200 Proof Press Operator ID - ADMINCOMPREHENSIVE METABOLIC [id number] 06:48:22* Test Item Value Reference Range Interpretation [...] GFR is not applicable for dialysis patients Proof Press Operator ID - ADMINPROTHROMBIN TIME/IRE1919-79-06 06:40:01* Test Item Value Reference Range Interpretation [...] code = 2801) 1.70 % 0.00-1.00 H [id number] 05:26:09* Test Item Value Reference Range Interpretation Comme nts MAGNESIUM (BEAKER) (test cod e = 627) 2.0 mg/dL 1.6-2.6 Proof Press Operator ID - AOLZHKXSISOWBYO4339-48-20 05:26:09* Test Item Value Reference Range Interpretation Comme nts PHOSPHORUS (BEAKER) (test co de = 604) 3.5 mg/dL 2.3-4.7 Proof Press Operator ID - ADMINBASIC METABOLIC [id number] 05:26:08* Test Item Value Reference Range Interpretation [...] GFR is not applicable for dialysis patients Proof Press Operator ID - ADMINCBC W/PLT COUNT & AUTO [id number] 05:11:15* Test Item Value Reference Range Interpretation [...] 0.70 % 0.00-1.00 XR spine lumbar 1 [id number] 10:32:20XR SPINE LUMBAR 1 VIEW CLINICAL INDICATION: L3-4 L[facility]INECTOMY [facility] [place] 1 [id number] 10:32:20XR SPINE LUMBAR 1 VIEW CLINICAL INDICATION: L3-4 LAMINECTOMY [facility] [place] 1 VIEW 2023-06-01 10:32:20 [facility] : 1970 Sex: FXR SPINE LUMBAR 1 VIEWCLINICAL INDICATION: L3-4 LAMINECTOMYCOMPARISON: NoneIMPRESSION:A single lateral view of the lumbar spine is obtained intraoperatively.The posterior approach surgical instrument is seen at the L3-L4 level,inferior to the L3 spinous process. Results were communicated to , who concurred with the above findings. Electronically Signed By: Maxim Stern/ 10:34 CDTWo rkstation Name: [id number] SPINE LUMBAR 1 [id number] 10:29:18 [facility] : 1970 Sex: [...] Signed By: Maxim Ramos08/01/2022 10:31 CDTWorkstation Name: [id number] Screen, [id number] 05:32:52* Test Item Value Reference Range Interpretation Comme nts Preg Test, Ur (test code = 2112-1) Negative Negative Lab Interpretation (test cod e = 50857-0) Normal [facility] CenterPREGNANCY SCREEN, [id number] 05:32:52* Test Item Value Reference Range Interpretation Comme nts TEST URINE (BEAKER ) (test code = 583) Negative Negative BASIC METABOLIC [id number] 23:30:54* Test Item Value Reference Range Interpretation [...] GFR is not applicable for dialysis patients Proof Press Operator ID - ADMINPT/YMXO1467-19-25 23:15:33* Test Item Value Reference Range Interpretation [...] H CT neck soft tissue without IV smhdvnpl4170-77-94 13:45:22EXAM: CT NECK SOFT TISSUE WITHOUT IV [...] Postoperative changes from anterior cervical discectomy fusionat C3-X9Zrltzilp Lung Apices: NormalCHI [facility] Medical CenterCT neck soft tissue without IV kpwrewce8130-82-00 13:45:22EXAM: CT NECK SOFT TISSUE WITHOUT IV [...] Postoperative changes from anterior cervical discectomy fusionat C3-Q1Fhdwqmxm Lung Apices: NormalCHI [facility] Medical CenterCT NECK SOFT TISSUE WITHOUT IV QELYOSYQ0503-18-26 13:45:22 [facility] : 1970 Sex: FEXAM: CT [...] Postoperative changes from anterior cervical discectomy fusionat C3-B5Ctqolywt Lung Apices: NormalIMPRESSION:Exam limited by lack of intravenous contrast.1. 1.8 x 2.9 x 1.3 cm ill-defined fluid collection in the leftanterolateral neck soft tissues, suggesting evolving postoperativehemorrhage. Superimposed infection is not ex cluded.2. Retropharyngeal fluid and air measuring up to 0.8 cm in thickness,favored to be present postoperative right frontal edema. Superimposedinfection is not excluded.3. Postoperative changes from ACDF at C3- W6Rcvnjjhpfczyyg Signed By: Maxim Ramos07/31/2022 13:47 CDTWorkstation Name: [id number] METABOLIC [id number] 08:13:13* Test Item Value Reference Range Interpretation [...] GFR is not applicable for dialysis patients Proof Press Operator ID - BVCBC W/PLT COUNT & AUTO [id number] 07:46:31* Test Item Value Reference Range Interpretation [...] 0.00-1.00 XR spine cervical 2 or 3 nxqxo5741-83-21 20:24:23TECHNIQUE: Frontal and lateral views of the cervical spine. INDICATION: Postop Standing Films. COMPARISON: None.[facility] CenterXR spine cervical 2 or 3 roazk5196-11-97 20:24:23TECHNIQUE: Frontal and lateral views of the cervical spine. INDICATION: Postop Standing Films. COMPARISON: None.[facility] CenterXR SPINE CERVICAL 2 OR 3 [id number] 20:24:23 [facility] : 1970 Sex: [...] Signed By: Zachariah Garcia05/28/2023 20:26 CDTWorkstation Name: [id number] fluoro non-specific up to 1 hour 2023-05-28 11:45:16This is a non-reportable study with no Radiologist dictation. Please refer to your PACS to review images, or Doc Flowsheets for documentation on studies without images.[facility] CenterFL fluoro non-specific up to 1 nnyx1707-27-55 11:45:16This is a non-reportable study with no Radiologist dictation. Please refer to your PACS to review images, or Doc Flowsheets for documentation on studies without images.[facility] CenterFL FLUORO NON-SPECIFIC UP TO 1 [id number] 11:45:16 [facility] : 1970 Sex: FThis is a non- reportable study with no Radiologist dictation. Please refer to your PACS to review images, or Doc Flowsheets for documentation on studies without images.FL FLUORO NON-SPECIFIC UP TO 1 WEEW5321-26-04 10:13:02 [facility] : 1970 Sex: FTECHNIQUE: 1 lateral fluoroscopic image of the cervical spine forlocalization.Fluoroscopic time: 3second(s).FINDINGS:The surgical pointer is at C3-C4.The findings were discussed with Dr. Garcia in theOR who concurred withthe findings.IMPRESSION:Intraoperative localization plain film as described abo ve.Electronically Signed By: Derik Reyez05/28/2023 10:15 CDTWorkstation Name: [id number], QUANTITATIVE, VPYQSZTYT3931-58-82 08:21:03* Test Item Value Reference Range Interpretation Comme nts GONADOTROPIN, CHORIONIC (HCG ) QUANT (BEAKER) (test code = 649) < mIU/mL 0-10 Non- Females: <10 mIU/mL Females: Gestation Age Reference Range(mIU/mL) 0.2-1 Week 5-50 1-2 Weeks 50-500 2-3 Weeks 100-5,000 3-4 Weeks 500-10,000 4-5 Weeks 1,000-50,000 5-6 Weeks 10,000-100,000 6-8 Weeks 15,000- 200,000 2-3 Months 10,000-100,000 Proof Press Operator ID - ADMINCULTURE, [id number] 09:28:30SPECIMEN NUMBER: [id number] CULTURE, URINE SPECIMEN NUMBER: [id number] SPECIMEN COMMENT: URINE SOURCE: URINE REPORT STATUS: FINAL FINAL REPORT: 05/15/2023 >100,000 CFU/ML UROGENITAL REBEL PRESENT NOCOMMON PATHOGENS UNLESS OTHERWISE INDICATED, ALL TESTING PERFORMED AT [facility] [address] [place] [address] INFORMATION SERVICES ASSISTANT: JANNY STEINER M.D. CLIA NUMBER [id number] [place]. [id number], [id number] 12:02:50SPECIMEN NUMBER: [id number] CULTURE, URINE SPECIMEN NUMBER: [id number] SOURCE: URINE REPORT STATUS: FINAL FINAL REPORT: 05/13/2023 NO SPECIMEN RECEIVED FOR TESTING. CHARGES DELETED.BASIC METABOLIC [id number] 04:48:43* Test Item Value Reference Range Interpretation Comme nts GLUCOSE (test code = 2217) 117 MG/DL 70-99 H BUN (test code = 2208) 20 MG/DL 6-20 CREATININE (test code = 2214) 0.83 MG/DL 0.60-1.30 eGFR (2020 CKD-EPI) (test co de = 97856) 85 ML/MIN/1.73 >60 SODIUM (test code = [...] 12.7 SECONDS 12.5-14.7 INR (test code = 08849) 0.9 SEE BELOW CURRENT RECOMMENDATIONS ARE FOR AN INR OF 2.0-3.0 FOR ALL PATIENTS ON VITAMIN K ANTAGONISTS, EXCEPT THOSE WITH PROSTHETIC HEART VALVES, FOR WHOM INR OF 2.5-3.5 IS RECOMMENDED. UNLESS OTHERWISE INDICATED, ALL TESTING PERFORMED AT [facility] [address] [place] [address] INFORMATION SERVICES ASSISTANT: JANNY STEINER M.D. CLIA NUMBER [id number] [facility] [place]. [id number] CBC W/AUTO DIFF WITH [id number] 01:54:17* Test Item Value Reference Range Interpretation [...] = 1065) 0.0 /100 WBC'S See_Comment [Automated [employer] ge] The system which generated this result [...] H ABS NUCLEATED RBCS (test code = 06042) 0.00 K/UL 0.00-0.11 ECG 12 [id number] 14:02:48Ventricular Rate 102 BPMAtrial Rate 102 BPMP-R Interval 146 msQRS Duration 90 msQ-T Interval 372 msQTC Calculation(Bazett) 484 msP Frankton 11 degreesR Frankton -53 degreesT Frank[place] 29 degrees Sinus tachycardiaPossible Left atrial enlargementLeft axis deviationPoor R wave progression Cannot rule out Anterior infarct , age undetermined vs lead misplacementNonspecific T wave abnormalityProlonged QTAbnormal ECGNo previous ECGs availableConfirmed by David GARCIA BASANT ([id number]) on 04/06/2023 2:02:46 [facility] & [id number] 13:11:39Transthoracic Echocardiography Report (TTE) Demographics Patient Name YUE ROMERO Date of Study 03/31/2023 [place] Gender Female Visit Number [id number] Race Room Number 2227 Number Date of 1970 Referring Physician Mariah Aldridge MD Age 53 year(s) Rigger Third Wilmer Francois Estate Attorney Josefina Corbett, [facility] Interpreting Physician Melody MDProcedure Type [...] cmAorta Ao Root S of Rosangela.: 3.08 cmDoppler/Luis Felipe titative Measurements Mitral Valve MV Peak E-Wave: 1.24 [...] Velocity: 0.74 m/s Peak Gradient: 2.22 mmHgCHI Torrance Memorial Medical CenterECHO W CONTRAST & [id number] 13:11:39Transthoracic Echocardiography Report (TTE) Demographics Patient Name YUE ROMERO Date of Study 03/31/2023 [place] Gender Female Visit Number [id number] Race Room Number 2227 Number Date of 1970 Referring Physician Mariah Aldridge MD Age 53 year(s) Rigger Third Wilmer Francois Estate Attorney Josefina Corbett, AISHWARYA Interpreting Physician Melody MDProcedure [...] Velocity: 0.74 m/s Peak Gradient: 2.22 mmHgCHI Torrance Memorial Medical CenterXR chest 1 view portable / [id number] 15:39:07TECHNIQUE: Frontal view of the chest. INDICATION: CHf. COMPARISON: None. FINDINGS: LINES/TUBES: None. HEART AND MEDIASTINUM: Cardiomediastinal contour is within normallimits. LUNGS: The lungs are well inflated and clear. No consolidation orpulmonary edema. PLEURA: No pneumothorax. No significant pleural effusion. SOFT TISSUES AND BONES: Cervical spinal fixation hardware is noted.[facility] CenterXR chest 1 view portable / [id number] 15:39:07TECHNIQUE: Frontal view of the chest. INDICATION: CHf. COMPARISON: None. FINDINGS: LINES/TUBES: None. HEART AND MEDIASTINUM: Cardiomediastinal contour is within normallimits. LUNGS: The lungs are well inflated and clear. No consolidation orpulmonary edema. PLEURA: No pneumothorax. No significant pleural effusion. SOFT TISSUES AND BONES: Cervical spinal fixation hardware is noted.[facility] CenterXR CHEST 1 VIEW PORTABLE / [id number] 15:39:07 [facility] : 1970 Sex: FTECHNIQUE: Frontal view of the chest.INDICATION: CHf.COMPARISON: None.FINDINGS:LINES/TUBES: None.HE ART AND MEDIASTINUM: Cardiomediastinal contour is within normallimits. LUNGS: The lungs are well inflated and clear. No consolidation orpulmonary edema.PLEURA: No pneumothorax. No significant pleuraleffusion.SOFT TISSUES AND BONES: Cervical spinal fixation hardware is noted.IMPRESSION:No acute card iopulmonary process.Electronically Signed By: Jose Carlos Lebron04/01/2023 15:41 CDTWorkstation Name: [id number] NATRIURETIC FACTOR (BNP)2023-04-01 14:15:07* Test Item Value Reference Range Interpretation Comme nts B-TYPE NATRIURETIC PEPTIDE ( BEAKER) (test code = 700) 192 pg/mL 0-100 H Proof Press Operator ID - ADMINMR spine cervical without IV jyznkqri8363-82-86 11:30:35MRI cervical spine without contrast CLINICAL HISTORY: [...] and paraspinal soft tissues are within normal limits.[facility] CenterMR CERVICAL SPINE WITHOUT IV [id number] 11:30:35 [facility]UE HEATHERGRACIELA MCCABE : 1970 [...] Signed By: Maxim Sultana03/31/2023 11:32 CDTWorkstation Name: [id number] METABOLIC [id number] 04:43:14* Test Item Value Reference Range Interpretation [...] GFR is not applicable for dialysis patients Proof Press Operator [facility] (HEMOGRAM ONLY)2023-03-31 04:20:07* Test Item Value [...] 0 /100 WBC 0-0 Arterial doppler legs ywvtldart8522-08-54 17:44:07PV LAB - Lower Extremity Arterial Duplex Demographics Patient Name YUE ROMERO Date of Study BROOKLYNN Age 53 Visit Number [id number] Gender Female Accession Number [id number] of 1970 Referring Mariah Aldridge, Room Number 2227 Physician Rigger Third Yovana Akins Interpreting John Solorio, Physician FellowProcedureType [...] + + + + + + !Prox TANKER SERVICEMAN ! !32 ! !Biphasic ! !60.9 ! !Triphasic ! + + + + + + + + + + !Mid TANKER SERVICEMAN ! !25.9 ! !Biphasic ! !59.7 ! !Triphasic ! + + + + + + + + + + !Dist TANKER SERVICEMAN ! !33.2 ! !Biphasic ! !37.4 ! [...] + + + + + + +[facility] CenterArterial doppler legs [id number] 17:44:07PV LAB - Lower Extremity Arterial Duplex Demographics Patient Name YUE ROMERO Date of Study 03/30/2023 BR[place]NN Age 53 Visit Number [id number] Gender Female Accession Number [id number] Date of 1970 Referring Mariah Luis Carlos, Room Number 2227 Physician Rigger Third Yovana Akins Interpreting John Solorio, Physician FellowProcedureType [...] + + + + + + !Prox TANKER SERVICEMAN ! !32 ! !Biphasic ! !60.9 ! !Triphasic ! +-- + + + + + + + + + !Mid TANKER SERVICEMAN ! !25.9 ! !Biphasic ! !59.7 ! !Triphasic ! + + + + + + + + + + !Dist TANKER SERVICEMAN ! !33.2 ! !Biphasic ! !37.4 ! [...] + + + + + + +[facility] CenterABI's Only(Ankle/Brachial Index)2023-03-30 17:13:47PV LAB - Lower Extremity Arterial Procedure Demographics Patient Name YUE ROMERO Date of Study 03/30/2023 BR[place]NN Age 53 Visit Number [id number] Gender Female Accession Number [id number] Date of 1970 Referring Mariah Aldridge, Room Number 2227 Physician Rigger Third Yovana Akins Interpreting John Solorio, Physician FellowProcedureType [...] in cm/s ; Diameters are measured [facility](Ankle/Brachial Index)2023-03-30 17:13:47PV LAB - Lower Extremity Arterial Procedure Demographics Patient Name YUE ROMERO Date of Study 03/30/2023 BR[place]NN Age 53 Visit Number [id number] Gender Female Accession Number [id number] Date of 1970 Referring Mariah Aldridge, Room Number 2227 Physician Rigger Third Yovana Akins Interpreting John Solorio, Physician FellowProcedureType [...] in cm/s ; Diameters are measured in [facility] thoracic spine without IV tirpnnhm5347-17-85 12:50:50MR THORACIC SPINE WITHOUT IV CONTRAST INDICATION: [...] and further reported on MRI lumbar spine. [facility] CenterMR THORACIC SPINE WITHOUT IV [id number] 12:50:50[facility] : 1970 Sex: [...] abnormality. T10-11 moderate right neural foraminal stenosis [id number] moderate bilateral foraminal stenosis due to facet [...] Signed By: Ryan Buckley03/30/2023 12:52 CDTWorkstation Name: [id number] spine lumbar without IV fcvjngzd7521-73-90 12:33:57MR LUMBAR SPINE WITHOUT IV CONTRAST INDICATION: Unlisted Reason for ExamConcern for cord compression COMPARISON: None TECHNIQUE: Multiplanar, multisequence MR images of the lumbar spinewithout contrast. FINDINGS: For the purposes of this dictation, the 5 lowermost btvrnz-byvjmpvxhjlpl-hqkr vertebral bodies are labeled L1-L5.Alignment of the [...] with mild to moderatebilateral neural foraminal stenosisCHI Torrance Memorial Medical CenterMR LUMBAR SPINE WITHOUT IV [id number] 12:33:57 [facility] TURNER : 1970 Sex: FMR LUMBAR SPINE WITHOUT IV CONTRASTINDICATION: Unlisted Reason for ExamConcern for cord compressionCOMPARISON: NoneTECHNIQUE: Multiplanar, multisequence MR images of the lumbar spinewithout contrast. FINDINGS: For the purposes of this dictation, the 5 lowermost jphday-tmawssigywmgo-lytx vertebral bodies are labeled L1- L5.Alignment of the lumbar spine is within normal limits. Vertebral body height is maintained. Bone marrow edema is seen at the inferior L3 and superior L4 vertebralbodies and bilateral L4 pedicles, favored to be degenerative in nature.Suggestion of a synovial cyst at the evhzjI12-M28 level (series 301image eight).No spinal cord signal [...] flavum buckling versus synovial cyst at the wxivaS17-X43 level (series 301image eight). MRI thoracic spine can beconsidered for further evaluation.7. Mild clumping of the cauda equina nerve roots, which is nonspecificbut may represent arachnoiditis. Postcontrast imaging can be consideredfor further evaluation.Electronically Signed By: Maxim Sultana03/30/2023 12:36 CDTWorkstation Name: [id number] [id number] 11:45:01* Test Item Value Reference Range Interpretation [...] 5.7- 6.4% indicates increased risk for diabetes (prediabetes)."Proof Press Operator ID - ADMEEG AWAKE AND FUBKVU1281-11-36 09:57:53Steph Martinez MD 03/30/2023 9:59 AMELECTROENCEPHALOGRAM FOR [facility]' EEG Type: Inpatient, outpatient, EMUDATE(s) OF EE03/30/23DATE OF REPORT: 03/30/23MRN: [id number] of : 1970EE-1454Start time: 08:36Stop time: 09:23ICD-10: R56.9 CPT Code: 36758 (awake and asleep)HISTORY: 53 y/o female with [...] EEG recordings. Steph Elias MD, MPHNeurophysiology/Epilepsy AttendingCHI [facility] Center EEG AWAKE AND [id number] 09:57:53Steph Martinez MD 03/30/2023 9:59 AMELECTROENCEPHALOGRAM FOR [facility] EEG Type: Inpatient, outpatient, EMUDATE(s) OF EE03/30/23DATE OF REPORT: 03/30/23MRN: [id number] of : 1970EE-1454Start time: 08:36Stop time: 09:23ICD-10: R56.9 CPT Code: 18357 (awake and asleep)HISTORY: 53 y/o female with [...] EEG recordings. Steph Elias MD, MPHNeurophysiology/Epilepsy AttendingCH[facility] Center EEG AWAKE AND [id number] 09:57:53Steph Martinez MD 03/30/2023 9:[address] EEG Type: Inpatient, outpatient, EMUDATE(s) OF EE03/30/23DATE OF REPORT: 03/30/23MRN: [id number] of : 1970EE-1454Start time: 08:36Stop time: 09:23ICD-10: R56.9 CPT Code: 54500 (awake and asleep)HISTORY: 53 y/o female with [...] EEG recordings. Steph Elias MD, MPHNeurophysiology/Epilepsy AttendingCH[facility] Center EEG AWAKE AND [id number] 09:57:53Steph Martinez MD 03/30/2023 9:59 AMELECTROENCEPHALOGRAM FOR [facility] EEG Type: Inpatient, outpatient, EMUDATE(s) OF EE03/30/23DATE OF REPORT: 03/30/23MRN: [id number] of : 1970EE-1454Start time: 08:36Stop time: :ICD-10: R56.9 CPT Code: 80448 (awake and asleep)HISTORY: 53 y/o female with [...] EEG recordings. Steph Elias MD, MPHNeurophysiology/Epilepsy AttendingCH[facility] VALPROIC ACID LEVEL, [id number] 09:42:31* Test Item Value Reference Range Interpretation Comme nts VALPROIC ACID TOTAL (BEAKER) (test code = 924) 76 ug/mL 50-100 Therapeutic range for some clinical conditions may be >100 ug/mLUrinalysis w/Microscopic + Reflex to Ecoqxhg9153-17-32 08:43:51* Test Item Value Reference Range Interpretation Comme nts Color, UA (test code = 5778-6) Yellow Clarity, UA (test code = 5767-9) Clear Specific Trinity, UA (test code = 5811-5) 1.033 1.001-1.035 pH, UA (test code = 5803-2) 6.0 5.0-8.0 Protein, UA (test code = 56492-5) 30 mg/dL Negative A Glucose, UA (test code = 365) Negative Negative Ketones, UA (test code = 2514-8) Negative Negative Bilirubin, UA (test code = 83390-0) Negative Negative Blood, UA (test code = 85107-9) Small Negative A Nitrite, UA (test code = 5802-4) Negative Negative Leukocytes, UA (test code = 5799-2) Negative Negative Urobilinogen, UA (test code = 36615-4) 0.2 0.2-1.0 RBC, UA (test code = 56376-8) 51 See_Comment [Automated message] The system which [...] Occasional Squam Epithel, UA (test code = 36542-3) See_Comment [Automated message] The system which generated this result transmitted reference range: /HPF. The reference range was not used to interpret this result as normal/abnormal. Specimen Source (test code = 2795) LYNDSAY (test code = LYNDSAY) Proof Press Operator ID - [auto]Proof Press Operator ID - tech Lab Interpretation (test code = 28436-8) Abnormal [facility] CenterURINALYSIS W/ REFLEX URINE [id number] 08:43:51 * Test Item Value Reference Range [...] < /HPF SOURCE(BEAKER) (test code = 2795) Proof Press Operator ID - [auto]Proof Press Operator ID - techCOMPREHENSIVE METABOLIC [id number] 04:37:29* Test Item Value Reference Range Interpretation [...] GFR is not applicable for dialysis patients Proof Press Operator ID - MATT BPT/EWHS3245-36-30 04:30:17* Test Item Value Reference Range Interpretation Comme nts PROTIME (BEAKER) (test code = 759) 13.8 seconds 11.9-14.2 INR (BEAKER) (test code = 370) 1.13 See_Comment [Automated [employer]] The system which generated this result transmitted [...] code = 413) 0 /100 WBC 0-0 [id number]-[id number] 00:00:00Ordered by an unspecified provider.[facility] CenterMAGNESIUM2023-05-25 17:14:06* Test Item Value Reference Range Interpretation Comme nts MAGNESIUM (test code = 9183092092) 1.9 mg/dL 1.7-2.4 Lab Interpretation (test cod e = 18700-5) Normal [facility] PlanoCOMP. METABOLIC PANEL (06624)2022-12-11 15:16:25* Test Item Value Reference Range Interpretation Comme nts NA (test code = 3377754875) 139 mmol/L 135-145 K (test code = 2490170302) 3.5 mmol/L 3.5-5.0 CL (test code = 8016929922) 107 mmol/L 98-108 CO2 TOTAL (test code = 6530132277) 24 mmol/L 23-31 AGAP (test code = 5922874528) 8 2-16 BUN (test code = 3767960798) 9 mg/dL 7-23 GLUCOSE (test code = 0069169368) 129 mg/dL 70-110 H CREATININE (test code = 7743715205) 0.68 mg/dL 0.50-1.04 TOTAL BILI (test code = 4406289944) 0.5 mg/dL 0.1-1.1 CALCIUM (test code = 3527197544) 8.9 mg/dL 8.6-10.6 T PROTEIN (test code = 5490021903) 6.3 g/dL 6.3-8.2 ALBUMIN (test code = 1091493409) 3.8 g/dL 3.5-5.0 ALK PHOS (test code = 8270221029) 87 U/L 34-122 ALTv (test code = 1742-6) 24 U/L 5-35 AST(SGOT) (test code = 1380597048) 21 U/L 13-40 eGFR (test code = 9398126210) 91.6 mL/min/1.73m2 LYNDSAY (test code = LYNDSAY) [...] imaging tests). Lab Interpretation (test code = 06189-2) Abnormal [facility] PlanoTROPONIN [id number] 15:10:45* Test Item Value Reference Range Interpretation Comme nts TROPONIN I (test code = 6972203431) 0.015 ng/mL <=0.034 LYNDSAY (test code = [...] of biotin. Lab Interpretation (test code = 36766-9) Normal [facility] PlanoN-TERMINAL [id number]-[id number] 15:07:48* Test Item Value Reference Range Interpretation Comme nts NT-proBNP (test code = 6885966477) 1460 pg/mL <=125 H LYNDSAY (test code = LYNDSAY) Biotin has been reported to cause a negative bias, interpret results relative to patient's use of biotin. Lab Interpretation (test code = 51131-4) Abnormal [facility] PlanoD-LFJKX9180-55-34 14:45:24* Test Item Value Reference Range Interpretation Comments D-DIMER (test code = 5163737861) 0.99 See_Comment H [Automated message] The system [...] a diagnosis. Lab Interpretation (test code = 00978-7) Abnormal [facility] WITH [id number] 14:14:48* Test Item Value Reference Range Interpretation Comme nts WBC (test code = 6690-2) 7.86 See_Comment [Automated [employer]] The system which generated this result transmitted reference range: 4.30 - 11.10 10*3/?L. The reference range was not used to interpret this result as normal/abnormal. RBC (test code = 789-8) 5.13 See_Comment [Automated [employer]] The system which generated this result transmitted [...] g/dL 31.6-35.1 L RDW-SD (test code = 04908-2) 47.8 fL 39.0-49.9 RDW-CV (test code = 788-0) 16.9 % 12.0-15.5 H PLT (test code = 777-3) 507 See_Comment H [Automated messa ge] The system which generated this result transmitted reference range: 166 - 358 10*3/?L. The reference range was not used to interpret this result as normal/abnormal. MPV (test code = 71634-3) 8.2 fL 9.5-12.9 L NRBC/100 WBC (test code = 0410491039) 0.0 See_Comment [Automated me ssage] The system which generated this result transmitted reference range: 0.0 - 10.0 /100 WBCs. The reference range was not used to interpret this result as normal/abnormal. NRBC x10^3 (test code = 2923500291) See_Comment [Automated messa ge] The system which generated this result transmitted reference range: 10*3/?L. The reference range was not used to interpret this result as normal/abnormal. GRAN MAT (NEUT) % (test code = 770-8) 64.5 % IMM GRAN % (test code = 6131602146) 0.30 % LYMPH % (test code = 736-9) 25.6 % MONO % (test code = 5905-5) 7.5 % EOS % (test code = 713-8) 1.0 % BASO % (test code = 706-2) 1.1 % GRAN MAT x10^3(ANC) (test code = 4194019710) 5.07 10*3/uL 1.88-7.09 IMM GRAN x10^3 (test code = 9439310690) 0.00-0.06 LYMPH x10^3 (test code = 731-0) 2.01 10*3/uL 1.32-3.29 MONO x10^3 (test code = 742-7) 0.59 10*3/uL 0.33-0.92 EOS x10^3 (test code = 711-2) 0.08 10*3/uL 0.03-0.39 BASO x10^3 (test code = 704-7) 0.09 10*3/uL 0.01-0.07 H Lab Interpretation (test code = 79821-6) Abnormal [facility] PlanoRPR2023-01-17 13:17:22* Test Item Value Reference Range Interpretation Comme nts RPR SCREEN (BEAKER) (test co de = 420) Nonreactive Nonreactive HEMOGLOBIN [id number] 10:39:49* Test Item Value Reference Range Interpretation Comme nts HEMOGLOBIN A1C ELECTROPHORESIS (LATOYA) (test code = 3811) 5.8 % See_Comment H [Automated me ssage] The system which generated this result transmitted reference range: <=5.6%. The reference range was not used to interpret this result as normal/abnormal. "The A1c is measured using a [facility]-certified method. HbA1c value equal to or greater than 6.5% as the diagnosis cutoff for diabetes. An HbA1c value of 5.7- 6.4% indicates increased risk for diabetes (prediabetes)."Proof Press Operator ID - ADM VITAMIN [id number] 22:48:27* Test Item Value Reference Range Interpretation Comme nts VITAMIN B12 (LATOYA) (test c ode = 774) 227 pg/mL 213-816 Proof Press Operator ID - MARCOTSH/FREE T4 IF QWMPQKSTU3817-02-24 22:08:28* Test Item Value Reference Range Interpretation Comme nts THYROID STIMULATING HORMONE (LINNEAAKER) (test code = 772) 3.309 uIU/mL 0.350-4.940 Proof Press Operator ID - JSHIV-1 ANTIGEN WITH HIV-1/2 HBIRKAMV7480-24-38 22:08:28* Test Item Value Reference Range Interpretation Comme nts HIV-1 ANTIGEN WITH HIV 1\\T\\2 ANTIBODY (2) (LINNEAAKER) (test code = 2586) Nonreactive Nonreactive Proof Press Operator ID - JSC-REACTIVE KDEUZES9169-70-68 21:49:44* Test Item Value Reference Range Interpretation Comme nts C-REACTIVE PROTEIN (BEAKER) (test code = 676) 0.35 mg/dL 0.00-0.50 Proof Press Operator ID - JSCOMPREHENSIVE METABOLIC BCQRZ9385-53-04 21:49:43* Test Item Value Reference Range Interpretation [...] GFR is not applicable for dialysis patients Proof Press Operator ID - JSLIPID HRHML2648-02-95 21:49:43* Test Item Value Reference Range Interpretation [...] Borderline 130-159 High 160-189 Very High >=190 Proof Press Operator ID - JSCBC W/PLT COUNT & AUTO KGMHAYNLSIUN9449-17-32 21:34:03* Test Item Value Reference Range Interpretation [...] Interpretation Comme nts Height (test code = 0067329352) in Weight (test code = 5374634712) lbs Systolic BP (test code = 7893273478) mmHg Diastolic BP (test code = 2099966247) mmHg Heart Rate (test code = 3793173629) bpm BSA (test code = 4525743697) 2.00 m2 Ao root diam (test code = 8956010176) 3.20 cm Aortic root (test code = 2143721463) 3.2 cm Ao root annulus (test code = 7728627960) 3.2 cm LVOT diameter (test code = 9925103214) 1.99 cm LVOT area (test code = 3510240509) 3.10 cm2 LVIDD (test code = 0623089632) 5.10 cm Left Ventricular End Diastolic Volume by Teichholz Method (test code = 7880262) 123.0 mL IVS (test code = 7240937808) 1.34 cm Interventricular Septum Diastolic Thickness by 2D (test code = 9818982) 1.34 cm LVPWD (test code = 3700877187) 1.34 cm PW (test code = 3590693537) 1.34 cm 0.6-1.1 EF(Teich) (test code = 4357060838) 41.80 % LVIDS (test code = 1917326197) 4.00 cm Left Ventricular End Systolic Volume by Teichholz Method (test code = 0003290) 71.5 mL FS (test code = 2379792672) 21 % EF - 2D (test code = 84903157) 41.80 % LA size (test code = 8851131331) 4.6 cm Pulmonic Regurgitant End Max Velocity (test code = 2214947293) 119.4 cm/s LAV(MOD-sp4) (test code = 4923077968) 95.00 mL E wave decelartion time (test code = 0480943777) 0.15 s MV stenosis pressure 1/2 time (test code = 3596610707) 45.6 ms MV Peak A Evette (test code = 5663366687) 123.8 cm/s MV Peak E Evette (test code = 5418369078) 109.7 cm/s E/A ratio (test code = 3928966580) ratio MR max PG (test code = 2084940011) 87.20 mm[Hg] MR max evette (test code = 6601937520) 466.90 cm/s Mr max evette (test code = 8798718723) 466.9 m/s MV Prop V (test code = 3944037337) 51.00 cm/s MV E/e' septal (test code = 1013607684) 8.1 cm/s Tapse (test code = 3727550258) 2.21 cm LVOT stroke volume (test code = 8793528302) 49.80 cm3 LVOT peak evette (test code = 7228539299) 89.1 cm/s LVOT mn grad (test code = 9133663614) mmHg AV LVOT peak gradient (test code = 7962235294) mmHg LVOT peak VTI (test code = 6863460357) 16.0 cm LV V1 mean (test code = 0603973590) 64.30 cm/s Aortic valve mean velocity (test code = 9194432435) 133.8 cm/s Ao peak evette (test code = 1441384538) 175.3 cm/s Ao VTI (test code = 7743380652) 32.2 cm AV area by cont VTI (test code = 6004053830) 1.6 cm2 AV area peak evette (test code = 7932507110) 1.6 cm2 Ao max PG (test code = 1330661276) 12.30 mm[Hg] AV peak gradient (test code = 0498972241) mmHg AV valve area (test code = 3493799231) 1.55 cm2 AV mean gradient (test code = 7833691353) mmHg AV regurgitation pressure 1/2 time (test code = 8519411372) 358.5 ms AI dec slope (test code = 8021867988) 364.20 cm/s2 AI max evette (test code = 1619685178) 445.80 cm/s AI max PG (test code = 8256690908) 79.50 mm[Hg] Radiology Study observation (narrative) (test code = 62693-1) LYNDSAY (test code = LYNDSAY) ?Left?Ventricle: Left [...] used. [facility]PO[facility] ([facility]ATED)2022-08-01 10:43:32* Test Item Value Reference Range Interpretation Comme [facility] POCT GLU (test code = 5574720597) 148 mg/dL 70-110 H Lab Interpretation (test cod e = 53194-1) Abnormal [facility] PlanoACTIVATED PARTIAL THRMPLAS [id number] 18:39:45* Test Item Value Reference Range Interpretation Comme [facility] APTT Patient (test code = 3173-2) See_Comment [Automated message] The system which generated this result transmitted reference range: 23 - 38 Seconds. The reference range was not used to interpret this result as normal/abnormal. LYNDSAY (test code = LYNDSAY) The [facility] patient population mean normal value for aPTT is 30 seconds. Lab Interpretation (test code = 32597-3) Normal [facility] PlanoPROTHROMBIN TIME / [id number] 18:37:42* Test Item Value Reference Range Interpretation [...] the indications. Lab Interpretation (test code = 12048-2) Normal [facility] PlanoTROPONIN [id number] 18:32:01* Test Item Value Reference Range Interpretation Comments TROPONIN I (test code = 6175878898) 0.019 ng/mL See_Comment [Automated message] The system [...] of biotin. Lab Interpretation (test code = 15262-8) Normal [facility] PlanoN-TERMINAL [id number]-[id number] 18:29:01* Test Item Value Reference Range Interpretation Comme nts NT-proBNP (test code = 7014675375) 2770 pg/mL See_Comment H [Automated message] The system which generated this result transmitted reference range: <=125. The reference range was not used to interpret this result as normal/abnormal. LYNDSAY (test code = LYNDSAY) Biotin has been reported to cause a negative bias, interpret results relative to patient's use of biotin. Lab Interpretation (test code = 62408-6) Abnormal [facility]. METABOLIC PANEL (40601)2022-07-31 18:21:42* Test Item Value Reference Range Interpretation Comme nts NA (test code = 7290848964) 136 mmol/L 135-145 K (test code = 1478871334) 4.6 mmol/L 3.5-5.0 CL (test code = 9044464275) 104 mmol/L 98-108 CO2 TOTAL (test code = 1073282666) 26 mmol/L 23-31 AGAP (test code = 2458649831) 2-16 BUN (test code = 5108735949) 9 mg/dL 7-23 GLUCOSE (test code = 9356581641) 97 mg/dL 70-110 CREATININE (test code = 4089143867) 0.64 mg/dL 0.50-1.04 TOTAL BILI (test code = 5870594532) 0.5 mg/dL 0.1-1.1 CALCIUM (test code = 7358059725) 8.2 mg/dL 8.6-10.6 L T PROTEIN (test code = 5713224192) 6.5 g/dL 6.3-8.2 ALBUMIN (test code = 9210045670) 3.9 g/dL 3.5-5.0 ALK PHOS (test code = 7774348446) 93 U/L 34-122 ALTv (test code = 1742-6) 18 U/L 5-35 AST(SGOT) (test code = 8574050351) 19 U/L 13-40 eGFR (test code = 2609676615) mL/min/1.73m2 LYNDSAY (test code = LYNDSAY) Association [...] imaging tests). Lab Interpretation (test code = 20289-4) Abnormal [facility] PlanoLIPASE2023-01-12 18:21:01* Test Item Value Reference Range Interpretation Comme nts LIPASE (test code = 4438308914) 54 U/L 0-220 Lab Interpretation (test cod e = 31444-9) Normal [facility] WITH [id number] 18:07:00* Test Item Value Reference Range Interpretation Comme nts WBC (test code = 6690-2) See_Comment [Automated [employer]] The system which generated this result transmitted reference range: 4.30 - 11.10 10*3/?L. The reference range was not used to interpret this result as normal/abnormal. RBC (test code = 789-8) See_Comment [Automated [employer]] The system which generated this result transmitted [...] g/dL 31.6-35.1 L RDW-SD (test code = 30627-3) 53.1 fL 39.0-49.9 H RDW-CV (test code = 788-0) 17.0 % 12.0-15.5 H PLT (test code = 777-3) See_Comment H [Automated messa ge] The system which generated this result transmitted reference range: 166 - 358 10*3/?L. The reference range was not used to interpret this result as normal/abnormal. MPV (test code = 94344-7) 8.2 fL 9.5-12.9 L NRBC/100 WBC (test code = 1619350660) See_Comment [Automated [employer] ssage] The system which generated this result transmitted reference range: 0.0 - 10.0 /100 WBCs. The reference range was not used to interpret this result as normal/abnormal. NRBC x10^3 (test code = 3983215466) See_Comment [Automated messa ge] The system which generated this result transmitted reference range: 10*3/?L. The reference range was not used to interpret this result as normal/abnormal. GRAN MAT (NEUT) % (test code = 770-8) 64.0 % IMM GRAN % (test code = 5245093218) 0.40 % LYMPH % (test code = 736-9) 27.3 % MONO % (test code = 5905-5) 6.5 % EOS % (test code = 713-8) 1.1 % BASO % (test code = 706-2) 0.7 % GRAN MAT x10^3(ANC) (test code = 6417275596) 5.46 10*3/uL 1.88-7.09 IMM GRAN x10^3 (test code = 7836767397) 0.03 10*3/uL 0.00-0.06 LYMPH x10^3 (test code = 731-0) 2.32 10*3/uL 1.32-3.29 MONO x10^3 (test code = 742-7) 0.55 10*3/uL 0.33-0.92 EOS x10^3 (test code = 711-2) 0.09 10*3/uL 0.03-0.39 BASO x10^3 (test code = 704-7) 0.06 10*3/uL 0.01-0.07 Lab Interpretation (test code = 78960-9) Abnormal [facility] METABOLIC PANEL (NA, K, CL, CO2, GLUCOSE, BUN, CREATININE, CA)2022-05-08 06:37:01* Test Item Value Reference Range Interpretation Comme nts NA (test code = 8428302942) 137 mmol/L 135-145 K (test code = 0143264984) 3.8 mmol/L 3.5-5 CL (test code = 4292534004) 103 mmol/L 98-108 CO2 TOTAL (test code = 9503550951) 24 mmol/L 23-31 AGAP (test code = 7121893356) 2-16 BUN (test code = 0959094712) 13 mg/dL 7-23 GLUCOSE (test code = 5220337261) 90 mg/dL 70-110 CREATININE (test code = 8922549776) 0.69 mg/dL 0.5-1.04 CALCIUM (test code = 5380135161) 8.5 mg/dL 8.6-10.6 L eGFR (test code = 5367012883) mL/min/1.73m2 LYNDSAY (test code = LYNDSAY) Association [...] imaging tests). Lab Interpretation (test code = 73195-2) [facility] 06:37:01* Test Item Value Reference Range Interpretation Comme nts MAGNESIUM (test code = 3827626305) 2.1 mg/dL 1.7-2.4 Lab Interpretation (test cod e = 47006-0) [facility] 06:37:01* Test Item Value Reference Range Interpretation Comme nts PHOSPHORUS (test code = 4166064672) 4.7 mg/dL 2.5-5 Lab Interpretation (test cod e = 84959-1) [facility] WITH [id number] 06:11:54* Test Item Value Reference Range Interpretation Comme nts WBC (test code = 6690-2) See_Comment [Automated [employer]] The system which generated this result transmitted reference range: 4.30 - 11.10 10*3/?L. The reference range was not used to interpret this result as normal/abnormal. RBC (test code = 789-8) See_Comment [Automated [employer]] The system which generated this result transmitted [...] 32.4 g/dL 31.6-35.1 RDW-SD (test code = 42951-0) 51.0 fL 39-49.9 H RDW-CV (test code = 788-0) 16.5 % 12-15.5 H PLT (test code = 777-3) See_Comment H [Automated messa ge] The system which generated this result transmitted reference range: 166 - 358 10*3/?L. The reference range was not used to interpret this result as normal/abnormal. MPV (test code = 18843-2) 8.3 fL 9.5-12.9 L NRBC/100 WBC (test code = 8310951555) See_Comment [Automated [employer] ssage] The system which generated this result transmitted reference range: 0.0 - 10.0 /100 WBCs. The reference range was not used to interpret this result as normal/abnormal. NRBC x10^3 (test code = 9988452285) See_Comment [Automated messa ge] The system which generated this result transmitted reference range: 10*3/?L. The reference range was not used to interpret this result as normal/abnormal. GRAN MAT (NEUT) % (test code = 770-8) 64.5 % IMM GRAN % (test code = 3538303811) 0.50 % LYMPH % (test code = 736-9) 27.1 % MONO % (test code = 5905-5) 6.6 % EOS % (test code = 713-8) 0.6 % BASO % (test code = 706-2) 0.7 % GRAN MAT x10^3(ANC) (test code = 0517049786) 5.28 10*3/uL 1.88-7.09 IMM GRAN x10^3 (test code = 5624120400) 0.04 10*3/uL 0-0.06 LYMPH x10^3 (test code = 731-0) 2.22 10*3/uL 1.32-3.29 MONO x10^3 (test code = 742-7) 0.54 10*3/uL 0.33-0.92 EOS x10^3 (test code = 711-2) 0.05 10*3/uL 0.03-0.39 BASO x10^3 (test code = 704-7) 0.06 10*3/uL 0.01-0.07 Lab Interpretation (test code = 91064-3) [facility]-07 01:18:10* Test Item Value Reference Range Interpretation Comme nts POCT GLU (test code = 8809527439) 120 mg/dL 70-110 H Lab Interpretation (test cod e = 80775-5) [facility]normal [facility]anoType and Screen - ONCE Kzcsrmr3041-62-80 05:46:35* Test Item Value Reference Range Interpretation Comme nts ABO & RH (test code = 20) O POSITIVE Performed at [facility] Laboratory Services [facility] Blood [address] Free: [phone] No. [id number] IAT (test code = 1185) Negative Performed at [facility] Laboratory Services [facility] Blood [address] Free: [phone] No. [id number] [facility]OLIC PAN[facility] (NA, K, CL, CO2, GLUCOSE, BUN, CREATININE, CA)2022-05-05 08:22:57* Test Item Value Reference Range Interpretation Comme nts NA (test code = 6730100167) 136 mmol/L 135-145 K (test code = 1056167884) 4.9 mmol/L 3.5-5 CL (test code = 0046127725) 108 mmol/L 98-108 CO2 TOTAL (test code = 4499391535) 22 mmol/L 23-31 L AGAP (test code = 0697681249) 2-16 BUN (test code = 5658868662) 12 mg/dL 7-23 GLUCOSE (test code = 9744445987) 155 mg/dL 70-110 H CREATININE (test code = 5398622976) 0.63 mg/dL 0.5-1.04 CALCIUM (test code = 7069893466) 8.4 mg/dL 8.6-10.6 L eGFR (test code = 6857416554) mL/min/1.73m2 LYNDSAY (test code = LYDNSAY) Association of [...] imaging tests). Lab Interpretation (test code = 58354-7) Abnormal [facility]anoPROTHROMBIN TIME / [id number] 08:22:37* Test Item Value Reference Range [facility]ation [facility] PROTIME PATIENT (test code = 5964-2) See_Comment [[employer]] The system which generated this result transmitted reference range: 10.1 - 12.6 Seconds. The reference range was not used to interpret this result as normal/abnormal. INR (test code = 6301-6) Normal INR <1.1; Warfarin Therapeutic range 2.0 to 3.0 or 2.5 to 3.5, depending upon the indications. Lab Interpretation (test code = 52698-6) Normal [facility]2022-[facility]17 08:22:37* Test Item Value Reference Range Interpretation [facility] APTT Patient (test code = 3173-2) See_Comment [Automated messa ge] The system which generated this result transmitted reference range: 26 - 36 Seconds. The reference range was not used to interpret this result as normal/abnormal. Lab Interpretation (test code = 36032-9) Normal [facility]FIBRINOGEN2022-10-17 08:22:37* Test Item Value Reference Range Interpretation Comme nts Fibrinogen (test code = 9934239957) 294 mg/dL 167-453 Lab Interpretation (test cod e = 98901-4) Normal [facility] WITH [id number] 08:15:01* Test Item Value Reference Range Interpretation [...] g/dL 31.6-35.1 L RDW-SD (test code = 35998-6) 52.9 fL 39-49.9 H RDW-CV (test code = 788-0) 16.8 % 12-15.5 H PLT (test code = 777-3) See_Comment H [Automated messa ge] The system which generated this result transmitted reference range: 166 - 358 10*3/?L. The reference range was not used to interpret this result as normal/abnormal. MPV (test code = 30593-9) 8.3 fL 9.5-12.9 L NRBC/100 WBC (test code = 4557497751) See_Comment [Automated me ssage] The system which generated this result transmitted reference range: 0.0 - 10.0 /100 WBCs. The reference range was not used to interpret this result as normal/abnormal. NRBC x10^3 (test code = 5389885223) See_Comment [Automated messa ge] The system which generated this result transmitted reference range: 10*3/?L. The reference range was not used to interpret this result as normal/abnormal. GRAN MAT (NEUT) % (test code = 770-8) 86.4 % IMM GRAN % (test code = 0718435933) 0.40 % LYMPH % (test code = 736-9) 11.7 % MONO % (test code = 5905-5) 1.1 % EOS % (test code = 713-8) 0.0 % BASO % (test code = 706-2) 0.4 % GRAN MAT x10^3(ANC) (test code = 5701888923) 6.36 10*3/uL 1.88-7.09 IMM GRAN x10^3 (test code = 9616219447) 0.03 10*3/uL 0-0.06 LYMPH x10^3 (test code = 731-0) 0.86 10*3/uL 1.32-3.29 L MONO x10^3 (test code = 742-7) 0.08 10*3/uL 0.33-0.92 L EOS x10^3 (test code = 711-2) 0.03-0.39 L BASO x10^3 (test code = 704-7) 0.03 10*3/uL 0.01-0.07 Lab Interpretation (test code = 94958-1) Abnormal [facility]anoVIT[facility]IN [facility], [id number] 20:14:03* Test Item Value Reference Range Interpretation Comme nts VIT D 25OH (test code = 13874-9) 22 ng/mL 25-80 L LYNDSAY (test code = LYNDSAY) Deficiency: <20 ng/mLInsufficiency: 20-24 ng/mLOptimal: 25-80 ng/mL Lab Interpretation (test code = 67821-7) Abnormal [facility]BASI METABOLIC PANEL (NA, K, CL, CO2, GLUCOSE, BUN, CREATININE, CA)2022-04-15 11:27:57* Test Item Value Reference Range Interpretation Comme nts NA (test code = 2118782531) 138 mmol/L 135-145 K (test code = 1764397852) 3.9 mmol/L 3.5-5 CL (test code = 2075722524) 106 mmol/L 98-108 CO2 TOTAL (test code = 7021779985) 23 mmol/L 23-31 AGAP (test code = 7261609887) 2-16 BUN (test code = 5850264784) 10 mg/dL 7-23 GLUCOSE (test code = 2741417252) 91 mg/dL 70-110 CREATININE (test code = 8782756860) 0.65 mg/dL 0.5-1.04 CALCIUM (test code = 9337481751) 8.1 mg/dL 8.6-10.6 L eGFR (test code = 3685046949) mL/min/1.73m2 LYNDSAY (test code = LYNDSAY) Association [...] imaging tests). Lab Interpretation (test code = 25847-0) Abnormal [facility]anoSTROKE Protocol - Transthoracic echo (TTE) 2022-04-14 22:07:33* Test Item Value Reference Range Interpretation Comme nts Height (test code = 3372191230) in Weight (test code = 1172364246) lbs Systolic BP (test code = 7258090383) mmHg Diastolic BP (test code = 1508669841) mmHg Heart Rate (test code = 7940260532) bpm BSA (test code = 3978347101) 1.94 m2 TASV (test code = 3978883971) 15.5 cm/s LVIDD (test code = 9161462979) 6.00 cm Left Ventricular End Diastolic Volume by Teichholz Method (test code = 0841894) 183.0 mL IVS (test code = 0553696975) 1.09 cm Interventricular Septum Diastolic Thickness by 2D (test code = 5003307) 1.09 cm LVPWD (test code = 6911018685) 0.94 cm PW (test code = 0328681452) 0.94 cm 0.6-1.1 EF(Teich) (test code = 4121687299) 40.30 % LVIDS (test code = 7627334452) 4.80 cm Left Ventricular End Systolic Volume by Teichholz Method (test code = 3454445) 109.2 mL FS (test code = 5040230795) 20 % EF - 2D (test code = 92917467) 40.30 % LVOT diameter (test code = 2484707238) 2.05 cm LVOT area (test code = 1649307652) 3.30 cm2 Ao root diam (test code = 8894541985) 3.10 cm Aortic root (test code = 7492671059) 3.1 cm Ao root annulus (test code = 8235651650) 3.1 cm LA size (test code = 2203813229) 4.2 cm LAV(MOD-sp4) (test code = 7037961387) 64.90 mL MV Peak A Evette (test code = 7737584586) 115.7 cm/s E wave decelartion time (test code = 8681599046) 0.15 s MV Peak E Evette (test code = 8729897946) 106.2 cm/s E/A ratio (test code = 9586771392) ratio LVOT stroke volume (test code = 5178309607) 48.30 cm3 LVOT peak evette (test code = 4125898754) 78.4 cm/s LVOT mn grad (test code = 8432465903) mmHg AV LVOT peak gradient (test code = 7459398490) mmHg LVOT peak VTI (test code = 9199573757) 14.7 cm LV V1 mean (test code = 2189766715) 51.40 cm/s Ao peak evette (test code = 8740650931) 154.7 cm/s AV area peak evette (test code = 9203069928) 1.7 cm2 Ao max PG (test code = 5464009866) 9.60 mm[Hg] AV peak gradient (test code = 6005194997) mmHg AV regurgitation pressure 1/2 time (test code = 5010483743) 257.3 ms AI dec slope (test code = 4753814459) 498.10 cm/s2 AI max evette (test code = 4113410446) 437.60 cm/s AI max PG (test code = 6965009865) 77.80 mm[Hg] Tapse (test code = 7006477572) 2.19 cm LA Volume Index (BP) (test code = 5277960735) 32.0 mL/m2 LA volume (BP) (test code = 4589230656) 62.1 mL LAV(MOD-sp2) (test code = 1608905839) 52.70 mL A4C EF (test code = 2181231454) 44.80 % EF(sp4-el) (test code = 0222784295) 45.20 % SV(MOD-sp4) (test code = 3968418711) 71.20 mL SV(sp4-el) (test code = 4377956634) 73.90 mL LV Diastolic Volume (BP) (test code = 4142819027) 146.3 mL A2C EF (test code = 3186767969) 52.00 % EF(MOD-bp) (test code = 0518857804) 46.70 % EF(sp2-el) (test code = 4892282977) 52.40 % LV Systolic Volume (BP) (test code = 5332624998) 77.9 mL SV(MOD-bp) (test code = 4861486211) 68.40 mL SV(MOD-sp2) (test code = 9108688222) 69.20 mL EF (test code = 1315541633) Left Ventricular Stroke Volume by 2-D Biplane-MOD (test code = 9668712) 68.4 mL Radiology Study observation (narrative) (test code = 05362-4) LYNDSAY (test code = LYNDSAY) ?Left?Ventricle: Left [...] [facility] performed. [facility]KEPPRA (LEVETIRACETAM)2022-04-14 16:48:36* Test Item Value Reference Range Interpretation Comme nts JUSTINEPPRA (test code = 4907337761) 12-46 L LYNDSAY (test code = LYNDSAY) Therapeutic range: 12-46 ?g/mL ? ?Toxic: Not well established.Test developed and characteristics determined by [facility] Laboratory Services. Lab Interpretation (test code = 86445-6) Abnormal [facility]anoBasi Metabolic Panel (Na, K, Cl, CO2, Glucose, BUN, Creatinine, Ca)2022-04-14 10:50:11* Test Item Value Reference Range Interpretation Comme nts NA (test code = 7198030544) 136 mmol/L 135-145 K (test code = 3851221554) 3.8 mmol/L 3.5-5 CL (test code = 1667251988) 105 mmol/L 98-108 CO2 TOTAL (test code = 3146589147) 25 mmol/L 23-31 AGAP (test code = 9528184237) 2-16 BUN (test code = 1708019015) 9 mg/dL 7-23 GLUCOSE (test code = 6852617909) 101 mg/dL 70-110 CREATININE (test code = 0402199589) 0.66 mg/dL 0.5-1.04 CALCIUM (test code = 5091483578) 8.1 mg/dL 8.6-10.6 L eGFR (test code = 1176431328) mL/min/1.73m2 LYNDSAY (test code = LYNDSAY) Association [...] imaging tests). Lab Interpretation (test code = 03656-6) Abnormal [facility]anoMagensium, [id number] 10:50:11* Test Item Value Reference Range Interpretation Comme nts MAGNESIUM (test code = 9795897429) 1.9 mg/dL 1.7-2.4 Lab Interpretation (test cod e = 15891-0) Normal [facility]anoThyroid Stimulating Kxhxmxb5596-88-33 22:21:44 * Test Item Value Reference Range Interpretation Comme nts TSH (test code = 4916645044) See_Comment Biotin has been reported to cause a negative bias, interpret results relative to patient's use of biotin. [Automated message] The system which generated this result transmitted reference range: 0.45 - 4.70 mIU/L. The reference range was not used to interpret this result as normal/abnormal. Lab Interpretation (test code = 79460-0) Normal [facility]anoGLYCOSYLATED HEMOGLOBIN (A1C)2022-04-13 21:53:43* Test Item Value Reference Range Interpretation Comme nts HGB A1C (test code = 4548-4) 5.8 % 4-5.7 H LYNDSAY (test code = LYNDSAY) Reference RangesNormal: <5.7%Prediabetes: 5.7 - 6.4%Diabetes: > 6.5% Lab Interpretation (test code = 90940-3) Abnormal [facility]anoFASTING LIPID PANEL (18262)(TOTAL CHOLESTEROL, TRIGLYCERIDES, HDL)2022-04-13 21:34:53* Test Item Value Reference Range Interpretation Comme nts CHOL (test code = 7658103564) 201 mg/dL 120-200 H HDL (test code = 4109595135) 56 mg/dL See_Comment [Automated [employer]] The system which generated this result transmitted reference range: >=50. The reference range was not used to interpret this result as normal/abnormal. HDLC RATIO (test code = 9783639148) See_Comment [Automated [employer] ge] The system which generated this result transmitted reference range: <=4.5. The reference range was not used to interpret this result as normal/abnormal. TRIG (test code = 9993637596) 355 mg/dL 30-170 H LDL CHOL (test code = 68313-7) 74 mg/dL See_Comment [Automated [employer]] The system which generated this result transmitted reference range: <=160. The reference range was not used to interpret this result as normal/abnormal. VLDL (test code = 7462068460) 71 mg/dL 5-60 H Lab Interpretation (test code = 17870-0) [facility]normal [facility]anoTroponin I - Code Alhykd6230-88-61 18:46:27* Test Item Value Reference Range Interpretation Comments TROPONIN I (test code = 5435377831) 0.013 ng/mL See_Comment [Automated message] The system [...] of biotin. Lab Interpretation (test code = 34286-8) Normal [facility] Metabolic Panel (NA, K, CL, CO2, Glucose, BUN, Creatinine, CA) - Code Qhqamd2478-27-25 18:35:07* Test Item Value Reference Range Interpretation Comme nts NA (test code = 6497222301) 136 mmol/L 135-145 K (test code = 8768402649) 4.3 mmol/L 3.5-5 CL (test code = 0690546804) 105 mmol/L 98-108 CO2 TOTAL (test code = 1056406019) 27 mmol/L 23-31 AGAP (test code = 8247348286) 2-16 BUN (test code = 1578045978) 8 mg/dL 7-23 GLUCOSE (test code = 7408026698) 130 mg/dL 70-110 H CREATININE (test code = 3941985226) 0.75 mg/dL 0.5-1.04 CALCIUM (test code = 9135246089) 8.5 mg/dL 8.6-10.6 L eGFR (test code = 5661975954) mL/min/1.73m2 LYNDSAY (test code = LYNDSAY) Association [...] imaging tests). Lab Interpretation (test code = 05106-6) [facility]normal [facility]anoaPTT - Code Zegbzw0578-17-38 18:32:46* Test Item Value Reference Range Interpretation Comme nts APTT Patient (test code = 3173-2) See_Comment [Automated message] The system which generated this result transmitted reference range: 23 - 38 Seconds. The reference range was not used to interpret this result as normal/abnormal. LYNDSAY (test code = LYNDSAY) The [facility] patient population mean normal value for aPTT is 30 seconds. Lab Interpretation (test code = 98380-1) Normal [facility]anoProthrombin Time / INR - Code Vgfckh1174-27-50 18:30:45* Test Item Value Reference Range Interpretation Comme [facility] PROTIME PATIENT (test code = 5964-2) See_Comment [Automated messa ge] The system which generated this result transmitted reference range: 12.0 - 14.7 Seconds. The reference range was not used to interpret this result as normal/abnormal. INR (test code = 6301-6) Normal INR <1.1; Warfarin Therapeutic range 2.0 to 3.0 or 2.5 to 3.5, depending upon the indications. Lab Interpretation (test code = 56122-7) Normal [facility]anoCBC without Diff - Code Lfqhux8590-50-21 18:23:07* Test Item Value Reference Range Interpretation [...] result as normal/abnormal. MPV (test code = 84007-3) 8.1 fL 9.5-12.9 L RDW-CV (test code = 788-0) 16.1 % 12-15.5 H RDW-SD (test code = 20010-3) 49.2 fL 39-49.9 NRBC x10^3 (test code = 7097689204) See_Comment [Automated [employer]] The system which generated this result transmitted reference range: 10*3/?L. The reference range was not used to interpret this result as normal/abnormal. NRBC/100 WBC (test code = 5550827321) See_Comment [Automated [employer]] The system which generated this result transmitted reference range: 0.0 - 10.0 /100 WBCs. The reference range was not used to interpret this result as normal/abnormal. IPF % (test code = 4821045541) Lab Interpretation (test code = 32396-0) Abnormal [facility] [id number] 21:06:40* Test Item Value Reference Range Interpretation Comments TROPONIN I (test code = 7736353572) 0.005 ng/mL See_Comment [Automated message] The system [...] of biotin. Lab Interpretation (test code = 86531-5) Normal [facility]. METABOLIC PANEL (27739)2021-11-23 20:55:42* Test Item Value Reference Range Interpretation Comme nts NA (test code = 0125835813) 137 mmol/L 135-145 K (test code = 8757778871) 4.3 mmol/L 3.5-5.0 CL (test code = 6442138201) 104 mmol/L 98-108 CO2 TOTAL (test code = 0299383671) 22 mmol/L 23-31 L AGAP (test code = 0477444049) 2-16 BUN (test code = 7180665189) 15 mg/dL 7-23 GLUCOSE (test code = 9969832865) 114 mg/dL 70-110 H CREATININE (test code = 1415869923) 0.68 mg/dL 0.50-1.04 TOTAL BILI (test code = 3757924311) 0.5 mg/dL 0.1-1.1 CALCIUM (test code = 4005916417) 9.1 mg/dL 8.6-10.6 T PROTEIN (test code = 8678569775) 7.3 g/dL 6.3-8.2 ALBUMIN (test code = 4314303743) 4.4 g/dL 3.5-5.0 ALK PHOS (test code = 6411620613) 243 U/L 34-122 H ALTv (test code = 1742-6) 24 U/L 5-35 AST(SGOT) (test code = 1760839408) 30 U/L 13-40 eGFR (test code = 2606673929) mL/min/1.73m2 LYNDSAY (test code = LYNDSAY) Association [...] imaging tests). Lab Interpretation (test code = 28889-1) [facility]anoLIPASE2022-[facility] 20:55:22* Test Item Value Reference Range Interpretation Comme nts LIPASE (test code = 0985897180) 96 U/L 0-220 Lab Interpretation (test cod e = 78496-7) Normal [facility]anoPOCT SPRE6805-49-53 20:46:00* Test Item Value Reference Range Interpretation Comme nts POCT PREG (test code = 1605) negative On board controls acceptable with C Line (test code = 3574) present POCT PREG LOT # (test code = 3575) [id number] POCT PREG TEST DATE ( test code = 3576) 04/18/2023 Lab Interpretation (test cod e = 29631-3) Normal [facility] PlanoCBC WITH [id number] 20:40:38* Test Item Value Reference Range Interpretation Comme nts WBC (test code = 6690-2) See_Comment [Automated [employer] ge] The system which generated this result transmitted reference range: 4.30 - 11.10 10*3/?L. The reference range was not used to interpret this result as normal/abnormal. RBC (test code = 789-8) See_Comment [Automated [employer] ge] The system which generated this result [...] 31.8 g/dL 31.6-35.1 RDW-SD (test code = 56498-8) 53.7 fL 39.0-49.9 H RDW-CV (test code = 788-0) 17.2 % 12.0-15.5 H PLT (test code = 777-3) See_Comment H [Automated messa ge] The system which generated this result transmitted reference range: 166 - 358 10*3/?L. The reference range was not used to interpret this result as normal/abnormal. MPV (test code = 46135-7) 8.5 fL 9.5-12.9 L NRBC/100 WBC (test code = 1258519236) See_Comment [Automated [employer] ssage] The system which generated this result transmitted reference range: 0.0 - 10.0 /100 WBCs. The reference range was not used to interpret this result as normal/abnormal. NRBC x10^3 (test code = 7275486172) <0.01 See_Comment [Automated messa ge] The system which generated this result transmitted reference range: 10*3/?L. The reference range was not used to interpret this result as normal/abnormal. GRAN MAT (NEUT) % (test code = 770-8) 53.7 % IMM GRAN % (test code = [id number]) 0.90 % LYMPH % (test code = 736-9) 32.6 % MONO % (test code = 5905-5) 10.1 % EOS % (test code = 713-8) 1.5 % BASO % (test code = 706-2) 1.2 % GRAN MAT x10^3(ANC) (test code = [id number]) 4.98 10*3/uL 1.88-7.09 IMM GRAN x10^3 (test code = [id number]) 0.08 10*3/uL 0.00-0.06 H LYMPH x10^3 (test code = 731-0) 3.02 10*3/uL 1.32-3.29 MONO x10^3 (test code = 742-7) 0.94 10*3/uL 0.33-0.92 H EOS x10^3 (test code = 711-2) 0.14 10*3/uL 0.03-0.39 BASO x10^3 (test code = 704-7) 0.11 10*3/uL 0.01-0.07 H Lab Interpretation (test code = 34367-9) [facility]21-[facility]-23 20:17:33* Test Item Value Reference Range Interpretation Comme [facility] POCT GLU (test code = 5064701222) 111 mg/dL 70-110 H Notified Provide r Lab Interpretation (test code = 08020-3) [facility] THINPREP, [id number] 00:00:00 * Test Item Value Reference Range Interpretation Comme nts SOURCE: (test code = 8001) Endocervical SLIDES: (test code = 8011) 1 LMP: (test code = 8021) 06/03/2021 SPECIMEN ADEQUACY: (test code = 91107) (NOTE) INTERPRETATION: (test code = 39252) ASCUS/EPITH. ABNORMALITY; SEE BELOW MERCHANDISE SUPERVISOR: (test code = 8101) CHANA Thacker(ASCP)IAC PATHOLOGIST INTERPRETATION BY: (test code = 8122) Nahid Russell M.D. LOCATION: (test code = 97053) (NOTE) CPT: (test code = 8140) (NOTE) PAP TEST, THINPREP, [id number] 00:00:00* Test Item Value Reference Range Interpretation Comme nts SOURCE: (test code = 8001) Endocervical SLIDES: (test code = 8011) 1 LMP: (test code = 8021) 06/03/2021 SPECIMEN ADEQUACY: (test code = 03486) (NOTE) INTERPRETATION: (test code = 55517) ASCUS/EPITH. ABNORMALITY; SEE BELOW MERCHANDISE SUPERVISOR: (test code = 8101) CHANA Thacker(ASCP)IAC PATHOLOGIST INTERPRETATION BY: (test code = 8122) Nahid Russell M.D. LOCATION: (test code = 49191) (NOTE) CPT: (test code = 8140) (NOTE) HPV HIGH RISK WITH GENOTYPE, [id number] 00:00:00* Test Item Value Reference Range Interpretation Comme nts HPV HIGH RISK INTERP (test c ode = 73149) POSITIVE HPV 16 (test code = 44113) POSITIVE HPV 18 (test code = 13910) NEGATIVE HPV, HR, OTHER GENOTYPES (te st code = 58420) POSITIVE HPV HIGH RISK WITH GENOTYPE, [id number] 00:00:00* Test Item Value Reference Range Interpretation Comme nts HPV HIGH RISK INTERP (test c ode = 09127) POSITIVE HPV 16 (test code = 33871) POSITIVE HPV 18 (test code = 52297) NEGATIVE HPV, HR, OTHER GENOTYPES (te st code = 42301) POSITIVE [id number] 03:22:48* Test Item Value Reference Range Interpretation Comme nts APPEARANCE (test code = 7957048187) Hazy Clear A COLOR (test code = 3136122480) Yellow Yellow PH (test code = 7038884619) 4.8-8.0 SP GRAVITY (test code = 3792115610) 1.003-1.030 GLU U QUAL (test code = 0276994308) Normal Normal BLOOD (test code = 3260490002) Negative Negative Interference fro m ascorbic acid may cause false negative results. KETONES (test code = 9331597246) 5 mg/dL Negative A PROTEIN (test code = 2887-8) Negative Negative UROBILIN (test code = 0716674914) 4.0 mg/dL Normal A BILIRUBIN (test code = 7072161180) Negative Negative NITRITE (test code = 6692831453) Negative Negative LEUK GRUPO (test code = 6783932973) Negative Negative RBC/HPF (test code = 4150404691) See_Comment [Automated [employer] ge] The system which generated this result transmitted reference range: 0 - 3 HPF. The reference range was not used to interpret this result as normal/abnormal. WBC/HPF (test code = 0666225980) <1 See_Comment [Automated [employer] ge] The system which generated this result transmitted reference range: 0 - 5 HPF. The reference range was not used to interpret this result as normal/abnormal. BACTERIA (test code = 8521586110) Few Negative A SQ EPITH (test code = 4139092063) HPF Lab Interpretation (test code = 10506-8) [facility] 03:22:48* Test Item Value Reference Range Interpretation Comme nts APPEARANCE (test code = 3971675078) Hazy Clear A COLOR (test code = 8903493974) Yellow Yellow PH (test code = 5959474503) 4.8-8.0 SP GRAVITY (test code = 7378351036) 1.003-1.030 GLU U QUAL (test code = 3764974914) Normal Normal BLOOD (test code = 0740612705) Negative Negative KETONES (test code = 5888231088) 5 mg/dL Negative A PROTEIN (test code = 2887-8) Negative Negative UROBILIN (test code = 9332868587) 4.0 mg/dL Normal A BILIRUBIN (test code = 7527974753) Negative Negative NITRITE (test code = 9364783465) Negative Negative LEUK GRUPO (test code = 6748310011) Negative Negative RBC/HPF (test code = 2307573212) See_Comment [Automated [employer] ge] The system which generated this result transmitted reference range: 0 - 3 HPF. The reference range was not used to interpret this result as normal/abnormal. WBC/HPF (test code = 0429209052) <1 See_Comment [Automated [employer] ge] The system which generated this result transmitted reference range: 0 - 5 HPF. The reference range was not used to interpret this result as normal/abnormal. BACTERIA (test code = 4834861434) Few Negative A SQ EPITH (test code = 7136788314) HPF Lab Interpretation (test code = 69668-2) [facility]normal [facility] [id number] 02:45:00* Test Item Value Reference Range Interpretation Comments TROPONIN I (test code = 5485020375) 0.002 ng/mL See_Comment [Automated message] The system [...] of biotin. Lab Interpretation (test code = 50095-2) Normal [facility] [id number] 02:45:00* Test Item Value Reference Range Interpretation Comme nts TROPONIN I (test code = 2053169843) 0.002 ng/mL See_Comment [Automated [employer]] The system which generated this result transmitted reference range: <=0.034. The reference range was not used to interpret this result as normal/abnormal. LYNDSAY (test code = LYNDSAY) Lab Interpretation (test code = 29789-9) Normal [facility] [id number] 02:41:57* Test Item Value Reference Range Interpretation Comme nts NT-proBNP (test code = 8999273986) 169 pg/mL See_Comment H [Automated message] The system which generated this result transmitted reference range: <=125. The reference range was not used to interpret this result as normal/abnormal. LYNDSAY (test code = LYNDSAY) Biotin has been reported to cause a negative bias, interpret results relative to patient's use of biotin. Lab Interpretation (test code = 76642-0) [facility]normal [facility] [id number] 02:41:57* Test Item Value Reference Range Interpretation Comme nts NT-proBNP (test code = 3817492308) 169 pg/mL See_Comment H [Automated [employer]] The system which generated this result transmitted reference range: <=125. The reference range was not used to interpret this result as normal/abnormal. LYNDSAY (test code = LYNDSAY) Lab Interpretation (test code = 93922-2) Abnormal [facility]. METABOLIC PANEL (31383)2021-03-17 02:09:13* Test Item Value Reference Range Interpretation Comme nts NA (test code = 3352800101) 137 mmol/L 135-145 K (test code = 4837383951) 4.2 mmol/L 3.5-5.0 CL (test code = 6458492501) 102 mmol/L 98-108 CO2 TOTAL (test code = 4052913974) 25 mmol/L 23-31 AGAP (test code = 4204193876) 2-16 BUN (test code = 1652985975) 18 mg/dL 7-23 GLUCOSE (test code = 4590720236) 144 mg/dL 70-110 H CREATININE (test code = 5965240776) 0.77 mg/dL 0.50-1.04 TOTAL BILI (test code = 9211041773) 0.4 mg/dL 0.1-1.1 CALCIUM (test code = 5406585570) 8.9 mg/dL 8.6-10.6 T PROTEIN (test code = 9391794784) 6.8 g/dL 6.3-8.2 ALBUMIN (test code = 7731415295) 3.9 g/dL 3.5-5.0 ALK PHOS (test code = 3073467896) 84 U/L 34-122 ALTv (test code = 1742-6) 13 U/L 5-35 AST(SGOT) (test code = 6770391892) 17 U/L 13-40 eGFR (test code = 0756539548) mL/min/1.73m2 LYNDSAY (test code = LYNDSAY) Association [...] imaging tests). Lab Interpretation (test code = 10277-9) Abnormal [facility] METABOLIC PANEL (74454)2021-03-17 02:09:13* Test Item Value Reference Range Interpretation Comme nts NA (test code = 1431566374) 137 mmol/L 135-145 K (test code = 9262255855) 4.2 mmol/L 3.5-5.0 CL (test code = 5129521308) 102 mmol/L 98-108 CO2 TOTAL (test code = 0249663929) 25 mmol/L 23-31 AGAP (test code = 2588913607) 2-16 BUN (test code = 9432972468) 18 mg/dL 7-23 GLUCOSE (test code = 0562182584) 144 mg/dL 70-110 H CREATININE (test code = 7704552541) 0.77 mg/dL 0.50-1.04 TOTAL BILI (test code = 8820634444) 0.4 mg/dL 0.1-1.1 CALCIUM (test code = 0812549805) 8.9 mg/dL 8.6-10.6 T PROTEIN (test code = 7707543977) 6.8 g/dL 6.3-8.2 ALBUMIN (test code = 7226872725) 3.9 g/dL 3.5-5.0 ALK PHOS (test code = 5698194805) 84 U/L 34-122 ALTv (test code = 1742-6) 13 U/L 5-35 AST(SGOT) (test code = 3795965283) 17 U/L 13-40 eGFR (test code = 3625652438) mL/min/1.73m2 LYNDSAY (test code = LYNSDAY) Lab Interpretation (test cod e = 83084-5) Abnormal [facility] WITH [id number] 01:56:33* Test Item Value Reference Range Interpretation [...] g/dL 31.6-35.1 L RDW-SD (test code = 33747-1) 55.5 fL 39.0-49.9 H RDW-CV (test code = 788-0) 18.9 % 12.0-15.5 H PLT (test code = 777-3) See_Comment H [Automated messa ge] The system which generated this result transmitted reference range: 166 - 358 10*3/?L. The reference range was not used to interpret this result as normal/abnormal. MPV (test code = 84123-2) 8.2 fL 9.5-12.9 L NRBC/100 WBC (test code = 6809658707) See_Comment [Automated me ssage] The system which generated this result transmitted reference range: 0.0 - 10.0 /100 WBCs. The reference range was not used to interpret this result as normal/abnormal. NRBC x10^3 (test code = 7804250122) <0.01 See_Comment [Automated messa ge] The system which generated this result transmitted reference range: 10*3/?L. The reference range was not used to interpret this result as normal/abnormal. GRAN MAT (NEUT) % (test code = 770-8) 61.7 % IMM GRAN % (test code = 5360808660) 0.80 % LYMPH % (test code = 736-9) 28.5 % MONO % (test code = 5905-5) 6.3 % EOS % (test code = 713-8) 1.8 % BASO % (test code = 706-2) 0.9 % GRAN MAT x10^3(ANC) (test code = 2211604033) 7.31 10*3/uL 1.88-7.09 H IMM GRAN x10^3 (test code = 1068100604) 0.09 10*3/uL 0.00-0.06 H LYMPH x10^3 (test code = 731-0) 3.38 10*3/uL 1.32-3.29 H MONO x10^3 (test code = 742-7) 0.75 10*3/uL 0.33-0.92 EOS x10^3 (test code = 711-2) 0.21 10*3/uL 0.03-0.39 BASO x10^3 (test code = 704-7) 0.11 10*3/uL 0.01-0.07 H Lab Interpretation (test code = 68634-9) Abnormal [facility] WITH [id number] 01:56:33* Test Item Value Reference Range Interpretation [...] g/dL 31.6-35.1 L RDW-SD (test code = 58011-7) 55.5 fL 39.0-49.9 H RDW-CV (test code = 788-0) 18.9 % 12.0-15.5 H PLT (test code = 777-3) See_Comment H [Automated messa ge] The system which generated this result transmitted reference range: 166 - 358 10*3/?L. The reference range was not used to interpret this result as normal/abnormal. MPV (test code = 97787-4) 8.2 fL 9.5-12.9 L NRBC/100 WBC (test code = 5237539242) See_Comment [Automated [employer] ssage] The system which generated this result transmitted reference range: 0.0 - 10.0 /100 WBCs. The reference range was not used to interpret this result as normal/abnormal. NRBC x10^3 (test code = 3431112755) <0.01 See_Comment [Automated messa ge] The system which generated this result transmitted reference range: 10*3/?L. The reference range was not used to interpret this result as normal/abnormal. GRAN MAT (NEUT) % (test code = 770-8) 61.7 % IMM GRAN % (test code = 5062825476) 0.80 % LYMPH % (test code = 736-9) 28.5 % MONO % (test code = 5905-5) 6.3 % EOS % (test code = 713-8) 1.8 % BASO % (test code = 706-2) 0.9 % GRAN MAT x10^3(ANC) (test code = 6149908705) 7.31 10*3/uL 1.88-7.09 H IMM GRAN x10^3 (test code = 2316806286) 0.09 10*3/uL 0.00-0.06 H LYMPH x10^3 (test code = 731-0) 3.38 10*3/uL 1.32-3.29 H MONO x10^3 (test code = 742-7) 0.75 10*3/uL 0.33-0.92 EOS x10^3 (test code = 711-2) 0.21 10*3/uL 0.03-0.39 BASO x10^3 (test code = 704-7) 0.11 10*3/uL 0.01-0.07 H Lab Interpretation (test code = 66188-2) Abnormal [facility]-19 (ID NOW RAPID TESTING)2021-03-17 01:38:12* Test Item Value Reference Range Interpretation Comme nts SARS-CoV-2 Rapid ID NOW (test code = 33063-6) Not Detected Not Detected LYNDSAY (test code = LYNDSAY) ID NOW COVID-19 As say is an isothermal nucleic acid amplification test intended for the qualitative detection of nucleic acid from SARS-CoV-2 viral RNA in nasopharyngeal (JIG FITTER) specimens. It is used under Emergency Use [...] clinically indicated. Lab Interpretation (test code = 01554-4) Normal [facility]19 (ID NOW RAPID TESTING)2021-03-17 01:38:12* Test Item Value Reference Range Interpretation Comme nts SARS-CoV-2 Rapid ID NOW (raisa t code = 47386-0) Not Detected Not Detected LYNDSAY (test code = LYNDSAY) Lab Interpretation (test cod e = 43777-5) Normal [facility]19 (ID NOW RAPID TESTING)2021-02-19 17:42:45* Test Item Value Reference Range Interpretation Comme nts SARS-CoV-2 Rapid ID NOW (test code = 86195-9) Not Detected Not Detected LYNDSAY (test code = LYNDSAY) ID NOW COVID-19 As say is an isothermal nucleic acid amplification test intended for the qualitative detection of nucleic acid from SARS-CoV-2 viral RNA in nasopharyngeal (JIG FITTER) specimens. It is used under Emergency Use [...] clinically indicated. Lab Interpretation (test code = 03993-3) [facility] PELVIS W [id number] 17:24:55Thickening of the gastric antrum and duodenal [...] Electronicallysigned by James Freeman at 02/19/2021 12:24 PMUnCook [facility] Center[facility]inalysis2021-08-03 17:03:40* Test Item Value Reference Range Interpretation Comme nts APPEARANCE (test code = 3427447723) Hazy Clear A COLOR (test code = 8141931139) Mabel Yellow A PH (test code = 3209812152) 4.8-8.0 SP GRAVITY (test code = 6278334062) 1.003-1.030 H GLU U QUAL (test code = 3229039104) Normal Normal BLOOD (test code = 6720435854) Negative Negative KETONES (test code = 0898538905) 5 mg/dL Negative A PROTEIN (test code = 2887-8) 30 mg/dL Negative A UROBILIN (test code = 4175966030) 4.0 mg/dL Normal A BILIRUBIN (test code = 7132142017) 4 mg/dL Negative A NITRITE (test code = 8111433585) Negative Negative LEUK GRUPO (test code = 7263903658) Negative Negative RBC/HPF (test code = 6887967726) See_Comment H [Automated messa ge] The system which generated this result transmitted reference range: 0 - 3 HPF. The reference range was not used to interpret this result as normal/abnormal. WBC/HPF (test code = 1510362067) See_Comment H [Automated messa ge] The system which generated this result transmitted reference range: 0 - 5 HPF. The reference range was not used to interpret this result as normal/abnormal. BACTERIA (test code = 2725575924) Few Negative A MUCOUS (test code = 1004044546) Moderate Negative LPF A SQ EPITH (test code = 2991903501) HPF CA OXALATE (test code = 2988078960) See_Comment H [Automated messa ge] The system which generated this result transmitted reference range: <=1 HPF. The reference range was not used to interpret this result as normal/abnormal. Ictotest (test code = 6994869772) Negative Lab Interpretation (test code = 28749-2) [id number] 16:34:55* Test Item Value Reference Range Interpretation Comme nts NA (test code = 8726639812) 139 mmol/L 135-145 K (test code = 2883215291) 4.3 mmol/L 3.5-5.0 CL (test code = 6127154671) 105 mmol/L 98-108 CO2 TOTAL (test code = 8839229754) 26 mmol/L 23-31 AGAP (test code = 3573794130) 2-16 BUN (test code = 7668344213) 11 mg/dL 7-23 GLUCOSE (test code = 0081904390) 95 mg/dL 70-110 CREATININE (test code = 0999545297) 0.70 mg/dL 0.50-1.04 TOTAL BILI (test code = 7568787706) 0.6 mg/dL 0.1-1.1 CALCIUM (test code = 8343077203) 8.9 mg/dL 8.6-10.6 T PROTEIN (test code = 2267408035) 7.7 g/dL 6.3-8.2 ALBUMIN (test code = 1890218234) 4.1 g/dL 3.5-5.0 ALK PHOS (test code = 7400523700) 79 U/L 34-122 ALTv (test code = 1742-6) 10 U/L 5-35 AST(SGOT) (test code = 8850802671) 22 U/L 13-40 eGFR (test code = 3865823696) mL/min/1.73m2 LYNDSAY (test code = LYNDSAY) Association [...] in imaging tests). [facility], [id number] 16:34:14* Test Item Value Reference Range Interpretation Comme nts LIPASE (test code = 8046316561) 45 U/L 0-220 Lab Interpretation (test cod e = 07156-9) Normal [facility] with Scbbrioukprm1321-31-05 16:21:12* Test Item Value Reference Range Interpretation Comme nts WBC (test code = 6690-2) See_Comment [Automated [employer]] The system which generated this result transmitted reference range: 4.30 - 11.10 10*3/?L. The reference range was not used to interpret this result as normal/abnormal. RBC (test code = 789-8) See_Comment [[employer]] The system which generated this result transmitted [...] g/dL 31.6-35.1 L RDW-SD (test code = 40016-5) 54.4 fL 39.0-49.9 H RDW-CV (test code = 788-0) 18.3 % 12.0-15.5 H PLT (test code = 777-3) See_Comment H [Automated messa ge] The system which generated this result transmitted reference range: 166 - 358 10*3/?L. The reference range was not used to interpret this result as normal/abnormal. MPV (test code = 18530-5) 8.5 fL 9.5-12.9 L NRBC/100 WBC (test code = 9416313033) See_Comment [Automated [employer] ssage] The system which generated this result transmitted reference range: 0.0 - 10.0 /100 WBCs. The reference range was not used to interpret this result as normal/abnormal. NRBC x10^3 (test code = 5076919931) <0.01 See_Comment [Automated [employer]] The system which generated this result transmitted reference range: 10*3/?L. The reference range was not used to interpret this result as normal/abnormal. GRAN MAT (NEUT) % (test code = 770-8) 78.3 % IMM GRAN % (test code = 5980086802) 0.40 % LYMPH % (test code = 736-9) 15.4 % MONO % (test code = 5905-5) 4.8 % EOS % (test code = 713-8) 0.1 % BASO % (test code = 706-2) 1.0 % GRAN MAT x10^3(ANC) (test code = 7413488093) 7.15 10*3/uL 1.88-7.09 H IMM GRAN x10^3 (test code = 7028205146) 0.04 10*3/uL 0.00-0.06 LYMPH x10^3 (test code = 731-0) 1.41 10*3/uL 1.32-3.29 MONO x10^3 (test code = 742-7) 0.44 10*3/uL 0.33-0.92 EOS x10^3 (test code = 711-2) <0.03 0.03-0.39 L BASO x10^3 (test code = 704-7) 0.09 10*3/uL 0.01-0.07 H Lab Interpretation (test code = 16455-9) Abnormal [facility] Consult Notes Date/Time Note Provider Source 2024-08-10 12:16:49 Associated Order(s): IP CONSULT TO SOCIAL WORK Reason For Consult SW consulted for transport home. Pt transferred from [place]. SW spoke with pt at bedside, pt states she is going to her friend's [place] ([phone]) home at [address] [place] [address]. Pt is wheelchair bound and does not have wheelchair here. SW arranged [facility] Sustainability Project Coordinator [facility] 2024-01-10 12:39:30 Associated Order(s): CONSULT CARDIOLOGY [facility] Cardiology Consult PCP: PATIENT DOES NOT HAVE A PCP Date of Service: 01/10/2024 CHIEF COMPLAINT/reason for consult: Chest pain HISTORY OF PRESENT ILLNESS This is a 53 years old female with past medical history of smoking, COPD, hypertension, obesity, nonobstructive coronary artery disease, systolic and diastolic heart failure, left ventricular thrombosis and pulm hypertension. She presented to [facility] emergency room with chest [...] 08/14/2015 Surgeon: Luis Jones Jr., DPM; Location: [facility] TONSILLECTOMY Family History Problem Relation Age of [...] pulmonary disease) Obesity Coronary artery disease involving ekwok coronary artery of ekwok heart without angina pectoris Snores Cigarette smoker [...] we can be of further assistance. Kylee Diego MD, FACC, AMADOR Rebar Bender Division of Cardiovascular Medicine [facility] [employer] 2023-12-15 08:28:19 Associated Order(s): CONSULT CARDIOLOGY [facility] Cardiology Consult PCP: PATIENT DOES NOT HAVE A PCP Date of Service: 12/15/2023 CHIEF COMPLAINT/reason for consult: Heart failure HISTORY OF PRESENT ILLNESS This is a 53 years old female with past medical history of smoking, COPD, hypertension, obesity, nonobstructive coronary artery disease, systolic and diastolic heart failure, left ventricular thrombosis and pulm hypertension. She presented to [facility] emergency room with dyspnea, [...] 08/14/2015 Surgeon: Luis Jones Jr., DPM; Location: [facility] TONSILLECTOMY Family History Problem Relation Age of [...] pain, unspecified type Coronary artery disease involving ekwok coronary artery of ekwok heart without angina pectoris Snores Cigarette smoker [...] we can be of further assistance. Kylee Diego MD, FACC, AMADOR [employer] Division of Cardiovascular Medicine [facility] 2023-11-27 14:57:00 Associated Order(s): CONSULT ADULT PHYSICAL THERAPY 11/27/2023 Physical therapy note: Duplicate consult. Sami Teran,PT, DPT,CMSR Sami T Jeffry PT [facility] 2023-11-25 10:16:00 Associated Order(s): CONSULT ADULT PHYSICAL [...] 08/14/2015 Surgeon: Luis Jones Jr., DPM; Location: [facility] TONSILLECTOMY Prior Living Situation: lives with her [...] -Pain Management: Nursing Notified COMMUNICATION Primary Language: Lebanese Able to Verbalize needs: Yes Vision:good; no [...] Minutes: 30 min Sami Teran PT, DPT,CMSR T [facility] - Health History and Physical Notes [...] on blood thinners. Pt was transferred to [facility] for a higher level of care [...] on blood thinners. Pt was transferred to [facility] for a higher level of care [...] repeat CT brain without contrast. Please call [phone] to schedule an appointment. Importance of follow up and red flags symptoms discussed with patient. She was counseled on not take ASA or blood thinners. - Please call [phone] with NSGY questions or concerns Praksah Eckert MD [facility] Neurosurgery Cosigned by Gus Jamison MD at 08/10/2024 8:06 AM BRICKMASON KMASON KMASON Associated attestation - Gus Jamison MD - 08/10/2024 8:06 AM BRICKMASON I have reviewed the case and imaging. The CT shows minimal, unchanged hemorrhage that does not require intervention. We will defer further management to the ER and neurology. Please call [phone] with questions. Neurosurgery Physician Jeffry Bolaños 2024-01-09 22:04:15 [facility] Hospitalist Admission H&P Date of Service: 01/09/2024 CHIEF COMPLAINT: Patient with complaints of chest pain and a history of cardiomyopathy with left ventricular thrombus HISTORY OF PRESENT ILLNESS Heather Turner is a 53 year old female who presents with chest discomfort. Patient had extensive cardiac workup done recently at [facility]. At that time, patient was noted to [...] a while. Patient recently started coming to [facility] as she had been going to [facility]. At this time, she will be [...] CHEST WITH IV CONTRAST ORDERING PHYSICIAN: OLENA DOYLE HISTORY: Pulmonary emboli suspected, elevated d-dimer COMPARISON: [...] pulmonary edema versus atypical pneumonia. RL: [phone] [facility]: [id number] End of report CHEST 1 VW Narrative Exam: Chest (1 View), 01/09/2024 4:15 PM. Ordering Physician: OLENA DOYLE. History: Chest Pain. Technique: One view of the chest. Comparison: 12/14/2023. Findings: Cardiac silhouette is mildly enlarged. There is no pneumothorax. There is no consolidation or pleural effusion. Pleural and diaphragmatic contours are normal. Calcified granuloma is seen in the left upper lobe. Changes of anterior cervical discectomy and fusion are seen. Impression Impression: No consolidation or pleural effusion. No pneumothorax. RL: [phone] End of Report SSMENT: 1. Chest pain [...] given high risk of morbidity and mortality. [place] [facility] was verified during stay Darrick Fry MD [facility] 2023-12-14 22:42:40 MEDICINE [facility] ADMIT H&P Date of Service: 12/14/2023 CHIEF COMPLAINT: shortness of breath Subjective History of Present Illness 53 year old female with a PMH significant for HFrEF (15-20% on 11/22/23) w/ LV thrombus, RLE DVT, RLL segmental PE, HTN, smoker, COPD, chronic low back pain, depression presenting from [facility] ED due to chest heaviness and [...] 08/14/2015 Surgeon: Luis Jones Jr., ESTHER; Location: [facility] TONSILLECTOMY Family History Problem Relation Age of [...] On Eliquis Code Status: Full Code T [facility] EMERGENCY PHYSICIAN STAFF [facility] 2023-11-22 13:30:57 CCU Team Admit H&P Date [...] lumbar spinal stenosis, and depression presenting from [facility] ED due to SOB. Patient with [...] mouth every morning. 05/11/23 Yes Doctor Unassigned, [place] spironolactone 25 mg tablet Take 1 tablet by mouth in the morning and 1 tablet in the evening. 09/30/23 Yes Doctor Unassigned, [place] DULoxetine 30 mg capsule Take 1 capsule by mouth in the morning. Doctor Unassigned, [place] furosemide 20 mg tablet Take 1 tablet by mouth every morning and evening. Doctor Unassigned, [place] Lacosamide (VIMPAT) 100 mg tablet Take 1 tablet by mouth in the morning and 1 tablet in the evening. 12/11/22 Alfonso Alvarado PAC methocarbamoL 500 mg tablet Take 2 tablets by mouth 4 (four) times daily as needed for Pain (scale 7-10). 11/18/22 Ritchie Motta MD cyclobenzaprine 5 mg tablet Take 1 [...] 8 (eight) hours as needed. Doctor Unassigned, [place] pantoprazole 40 mg EC tablet Take 40 mg by mouth daily. Doctor Unassigned, [place] amLODIPine (NORVASC) 10 mg tablet Take 1 Tab by mouth daily. 09/20/15 Kylee Diego MD carvedilol (COREG) 6.25 mg tablet Take 1 Tab by mouth 2 (two) times daily with meals. 09/20/15 Kylee Diego MD lisinopril (PRINIVIL,ZESTRIL) 40 mg tablet Take 1 Tab by mouth daily. 09/20/15 Kylee Diego MD loratadine (CLARITIN LIQUI-GEL) 10 mg capsule Take by mouth daily. Doctor Unassigned, [place] MULTIVITAMIN ORAL Take 1 Tab by mouth daily. Doctor Unassigned, [place] omega-3 fatty acids-vitamin E (FISH OIL) 1,000 mg capsule Take 1 g by mouth daily. Doctor Unassigned, [place] Allergies Allergen Reactions Green Tea Other - See comments Seizures Diclofenac Hypertension Keppra [Levetiracetam] Other - See comments Makes seizures worse Past surgical history: Past Surgical History: Procedure Laterality Date ANTERIOR CERVICAL FUSION CHOLECYSTECTOMY HAND/FINGER SURGERY UNLISTED Bilateral 3 L hand, 3 R hand METATARSAL OSTEOTOMY Right 08/14/2015 Surgeon: Luis Jones Jr., DPM; Location: [facility] OR [facility] TONSILLECTOMY Allergies: Allergies Allergen Reactions Green [...] Friends and Family: Not on file Attends Uatsdin Services: Not on file Active Member of [...] Otherwise, Sonographically unremarkable right upper quadrant. RL: [id number] HS:Y CHEST PULMONARY ANGIOGRAM Result Date: 11/22/2023 1. Right lung lower lobe segmental pulmonary embolism. The patient is already on anticoagulation for lower extremity DVT. 2. Mild cardiomegaly. 3. Left adrenal nodule consider follow-up with elective contrast CT. ___ XR SHOULDER 2+ VW RIGHT Result Date: 11/22/2023 Impression: 1. No acute osseous abnormality. 2. Chronic findings as detailed. RL: [id number] End of Report LOWER EXTREMITY VEIN WITH [...] on TTE, currently on heparin gtt. Negative [place] Criteria. Blood cultures NGTD. Received cefepime 1 [...] Medicine 11/22/2023 15:16 Associated attestation - Cr Fry MD - 11/23/2023 2:18 PM CDT I [...] referrals and/or communicating with other health career and transition teacher (not separately reported), documenting clinical information in the electronic or other health record, and care coordination (not separately reported). 53 yo F with cardiogenic shock and PE Acute decompensated HFrEF NSTEMI Pulmonary embolism Polysubstance use LV thrombus COPD Elevated lactate- started on milrinone on 11/21 Continue milrinone Continue anticoagulation RHC/LHC today for BiV failure Cr Fry MD Cancer Registry Coordinator [facility] Cardiology 11/23/23 [facility] Ayasdi 2023-11-22 02:28:50 MEDICINE Hina H&P PCP: PATIENT DOES NOT HAVE A PCP Date of Service: 11/21/2023 CHIEF COMPLAINT: SOB History of Present Illness Heather Turner is a 53 year old female with a PMH significant for HFrEF (~35% 05/2023), HTN, Smoker, COPD, chronic low back pain, depression presenting from [facility] ED due to SOB. Pt states her home pulse ox was reading 86% and was having trouble catching her breath. Associated sx include PETERSON, orthopnea, CP that is substernal, pressure-like, and non radiating. She says the SOB started earlier today with productive cough. Denies fevers or chills. No recent sick contacts. States she was treated for pneumonia at [place] 2 weeks ago with levaquin and prednisone [...] 08/14/2015 Surgeon: Luis Jones Jr., ESTHER; Location: [facility] TONSILLECTOMY Family History Problem Relation Age of [...] Depakote - c/w flomax Pain UncontrolledTylenol and [place] Prophylaxis: DVT- heparin Stress Ulcer: pantoprazole Code [...] results to the patient. Ivis Mcdermott MD Cancer Registry Coordinator Department of Internal Medicine Division of Cardiovascular Disease [facility] Procedure Notes Date/Time Note Provider Source 2023-11-23 15:17:41 Left Heart Cath/Coronary Angiography Date of Service: 11/23/2023 3:18 PM Indication/Diagnosis: heart failure Consent source: self Consent type: indications/complications discussed with patient/legal guardian; written consent obtained Time out completed: yes Aseptic technique: Chlorprep Local Anesthesia: 1% lidocaine without epinephrine Sedation: fentanyl 50 mcg, Versed 2 mg Access site: right radial artery, RIJ [place] 4.0 5fr 8 Fr IJ sheath [place] Ros[place]ba Closure Method: TR Band, manual pressure [...] Findings discussed with the primary team (Dr. Fry). Coronary angiography/RHC revealing: Patent coronary arteries with [...] of right sided failure. Cris Molina MD manufacturing engineering professor. Division of cardiovascular medicine [facility] IM-CARDIOVASCULAR DISEASE [facility] - Health Notes Date/Time Note Provider Source Referral ID Status Reason Start Date Expiration Date Visits Requested Visits Authorized [id number] Pending Review Specialty Services Required 08/10/2024 02/06/2025 1 1 KMASON* Consultation (Urgent) - Pending Review Specialty Diagnoses / Procedures Referred By Contac t Referred To Contact Family Medicine Diagnoses Breakthrough seizure (CMS/HCC) (HCC) Subdural hematoma (HCC) Closed head injury, initial encounter Nonintractable epilepsy without status epilepticus, unspecified epilepsy type (HCC) Procedures NC OFFICE/OUTPATIENT NEW HIGH MDM 60 MINUTES Dipak Colindres MD [address] [place] [address] Phone: tel: fax: Referral ID Status Reason Start Date Expiration Date Visits Requested Visits Authorized [id number] Pending Review Specialty Services Required 08/10/2024 02/06/2025 1 1 KMASON* Imaging (Routine) - Pending Review Specialty Diagnoses / Procedures Referred By Contac t Referred To Contact Radiology Procedures CT brain wo IV contrast Dipak Colindres MD [address] [place] [id number] Phone: tel: fax: Referral ID Status Reason Start Date Expiration Date V isits Requested Visits Authorized [id number] Pending Review 08/10/2024 02/06/2025 1 1 KMASON* Consultation (Urgent) - Pending Review Specialty Diagnoses / Procedures Referred By Contac t Referred To Contact Neurosurgery Diagnoses Subdural hematoma (HCC) Dipak Colindres MD [address] [address] Phone: tel: fax: Referral ID Status Reason Start Date Expiration Date Visits Requested Visits Authorized [id number] Pending Review Specialty Services Required 08/10/2024 02/06/2025 1 1 KMASON [facility]pidydh4189-33-77 15:10:22* [facility] HospitalBvpotyy6671-41-95 15:10:22* Calculated C-SSRS Risk Score (Lifetime/Recent) Answer Date of Assessment Author No Risk Indicated 08/10/2024 8:53 AM BRICKMASON Malinda Buckley RN * [employer] Suicide Severity Rating Scale (Screener/Recent Self-Report) Question Answer Date of Assessment Author 1. Wish to be (Past 1 Month) No 025 8:53 AM Malinda Gates RN 2. Non-Specific Active Suici tomy Thoughts (Past 1 Month) No 08/10/2024 8:53 AM Malinda Gates RN 6. Suicidal Behavior (Lifetime) No 8:53 AM BRICKMASON Malinda Buckley RN [facility] HospitalKrvrjwa4265-07-65 15:10:22* Loida Flores MD - 08/10/2024 12:37 PM BRICKMASON General Neurology Initial Consultation Note Name: Heather Turner Date: 08/10/2024 Service: NSGY Attending: Tomeka Reason for Consult: Seizures Assessment: [...] Dr. Sandra Mahmood MD Resident Physician Neurology [facility] | [facility] Subjective History of Present Illness: Heather Turner [...] at outside hospitals. She was transferred to [facility] for a higher level of care [...] Resource Strain: Low Risk (12/03/2023) Received from [facility] Overall Financial Resource Strain (CARDIA) Difficulty of Paying Living Expenses: Not very hard Food Insecurity: Food Insecurity Present (12/03/2023) Received from [facility] Hunger Vital Sign Worried About Running Out of Food in the Last Year: Sometimes true Ran Out of Food in the Last Year: Sometimes true Transportation Needs: No Transportation Needs (12/03/2023) Received from [facility] PRAPARE - Transportation Lack of Transportation (Medical): No Lack of Transportation (Non-Medical): No Recent Concern: Transportation Needs - Unmet Transportation Needs (11/26/2023) Received from [facility] PRAPARE - Transportation Lack of Transportation (Medical): Yes Lack of Transportation (Non-Medical): Yes Physical Activity: Inactive (12/03/2023) Received from [facility] Exercise Vital Sign Days of Exercise per Week: 0 days Minutes of Exercise per Session: 0 min Stress: Not on file Social Connections: Unknown (12/03/2023) Received from [facility] Social Connection and Isolation Panel [NHANES] Frequency of Communication with Friends and Family: Twice a week Frequency of Social Gatherings with Friends and Family: Not on file Attends Uatsdin Services: Not on file Active Member of Clubs or Organizations: Not on file Attends Club or Organization Meetings: Not on file Marital Status: Intimate Partner Violence: Not on file Housing Stability: High Risk (12/03/2023) Received from [facility] Housing Stability Vital Sign Unable to Pay [...] small subdural hematoma (series 900, image 12). Rose-white matter differentiation is predominantly maintained. No midline [...] RES. This report was dictated by a Commercial Airline Pilot/Fellow/NOHELIA: Roman Zendejas RES 08/10/2024 6:43 This report was dictated by a Commercial Airline Pilot/Fellow/Physician Salvage Worker. I have personally reviewed the images as well as the interpretation and agree with the findings. Report finalized by: Roberto Marina MD 08/10/2024 8:52 No MRI head results found for the past 14 days No EEG results found for the past 14 days I performed qonv-at-rhwo diagnostic evaluation of this patient.I have reviewed [...] can be done outpatient. Loida FloresVascular Neurology/Neurohospitalist, [facility] Cancer Registry Coordinator, [facility] KMASON KMASON KMASON KMASON [facility] HospitalDvgjmlj0985-58-81 15:10:22Pending Results Scheduled Orders Name Type Priority [...] on patient's age to complete this topic [facility] HospitalMrrtouj6566-21-38 15:10:22 Diagnosis Subdural hematoma (HCC) - Primary Subdural hemorrhage Breakthrough seizure (CMS/HC C) (HCC) Closed head injury, initial encounter Nonintractable epilepsy with out status epilepticus, unspecified epilepsy type (HCC) Acute cystitis with hematuri a Seizure (HCC) Other convulsions Subdural hemorrhage (HCC) Subdural hemorrhage [facility] HospitalTmjafit6858-50-74 15:10:22 [facility] HospitalUurtbhj1503-74-99 06:02:36 [facility] HospitalCijpxra1144-91-58 06:02:36* Imaging (Routine) - Pending Review Specialty Diagnoses / Procedures Referred By Contac t Referred To Contact Radiology Procedures CT external head System, Provider Not In Referral ID Status Reason Start Date Expiration Date V isits Requested Visits Authorized [id number] Pending Review 08/10/2024 02/06/2025 1 1 KMASON [facility] Nwccvdf0263-32-10 06:02:36Upcoming Encounters Health Maintenance Due Date Last [...] on patient's age to complete this topic [facility] Qqbuvcj5012-35-02 00:54:53 Summary: Discharge Images from the original [...] daughter, in no apparent distress, Alma Gould [place] 615074-09-15 00:10:43 Report to Campbell CAMPOS. Ely Hernández [place] 615074-09-14 22:25:58 Pt having seizure like activity as I walked in pt. Activity lasting about 40 seconds. Pt alert and able to answer questions immediately after activity. Yesenia Hightower [place] 615074-09-14 20:44:51 Pt arrived via person with complaints of feeling like her heart failure was acting up and her pulse ox machine was reading 94% and Hr 61 at home which is low for her. Pt states she has had 6 seizures today. Was seen at [facility] and reports no test were performed [...] meds for a month d/t financial issues. 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 Mireille Cardenas [place] 615074-06-25 21:59:00 Associated Order(s): EKG-12 Lead ONCE Pre-Procedure Diagnose(s): Chest pain, unspecified type Post-Procedure Diagnose(s): Chest pain, unspecified type [facility] Emergency Department Note Patient Name: Heather Turner Date of : 1970 53 year old female Treatment Room: TX1/TX1 Primary Care Physician: Lb Lieberman Patient Escorted by: Family [5] Mode of Arrival: Personal means [1] EMS Treatment Prior to ED Arrival: [facility] [employer] treatment comments: prescription meds Travel and Exposure [...] 08/14/2015 Surgeon: Luis Jones Jr., ESTHER; Location: [facility] TONSILLECTOMY Review of Systems: Review of Systems [...] 0.01 - 0.07 10*3/uL COMP. METABOLIC PANEL (17923) - Abnormal NA 140 135 - 145 [...] VW Cbc with Diff Comp. Metabolic Panel (33066) Troponin I Orders Placed This Encounter Medications [...] ED Physician in the absence of a vp information technology: yes Previous ECG: Previous ECG: Unavailable Interpretation: [...] signed by: Radha Wyatt MD 01/12/24 2342 [facility] - Nfkjcf3184-96-68 16:22:00 TRANSITIONAL CARE MANAGEMENT ASSESSMENT 01/12/2024 Heather Turner [id number] Heather Turner is a 53 year old /White female was admitted on 01/09/24 to [facility] ICU. She was discharged on 01/10/24 with discharge disposition of HR- Routine Discharge. Admitting Physician: Darrick Fry Discharge Diagnosis: Hypotension No linked episodes TCM Nex-gpdi-kd-face outreach documentation: Care Transition CM made f/u call to pt post-discharge x2. No response and call went to voicemail. CM left a discreet message with purpose of call and CM's call back information. Discharge Assessment Chart Assessed: 01/12/24 TCM Outreach Completed: 01/12/24 Future Appointments: Veronique Carrillo [facility]NPrem[facility] NorthVmekxn8095-60-67 11:40:32 Care Transition CM made f/u call to pt post-discharge. No response and call went to voicemail. CM left a discreet message with purpose of call and CM's call back information. Veronique Carrillo RN, BSN Lead Relay Tester-Transitions of Care [phone] [facility] NorthWmnqhp7425-17-01 15:32:40 Problem: Discharge Planning Goal: Adequate for [...] RN Outcome: Adequate for discharge Addis Bates [facility]aky7264-69-88 15:32:28 Problem: Discharge Planning Goal: Adequate for [...] in pain sensation Outcome: Adequate for discharge [facility] - Zboyjg8544-85-59 14:55:21 Problem: Discharge Planning Goal: Adequate for [...] sensation Outcome: Adequate for discharge Wayne Merrill [facility]UN[facility] - Jjyhey0263-30-60 01:16:51 Problem: Discharge Planning Goal: Adequate for [...] sensation Outcome: Progressing as expected Alexandria Walsh RNUN[facility] - Kksgzx1000-72-20 22:42:54 Patient admitted to IMU for diagnosis of pneumonia, elevated D-dimer, hypotension, chest pain. Patient agrees to admission, discussed plan of care with patient and family. Patient is awake, alert, oriented, resp reg unlabored, color appropriate for race, PIV intact x2. No adverse reaction to medications administered while in ED. Belongings with patient to unit. Report to BETH Reyez. [place] 275814-06-22 22:35:43 Report given to BETH Reyez IMU [place] 306394-06-22 20:04:51 Patent resting Sheri Harding [place] 615074-06-22 16:09:08 Patient states: "I started having chest pain this morning" Reports history of [place], blood clots in heart, lung and legs, CHF. Malinda Andres [facility] HealthMtcqcb1105-44-05 16:07:00 Associated Order(s): EKG-12 Lead ROUTINE ONCE Pre-Procedure Diagnose(s): Chest pain, unspecified type Post-Procedure Diagnose(s): Chest pain, unspecified type [facility] Emergency Department Note Patient Name: Heather Turner Date of : 1970 53 year old female Treatment Room: MI2/MI2 Primary Care Physician: Lb Lieberman Patient Escorted [...] vomiting or diarrhea. 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 METABOLIC PANEL (42614) D-DIMER Orders Placed This Encounter Medications aspirin tablet 325 mg morpHINE (4 mg/mL) injection 4 mg ondansetron (ZOFRAN (PF)) injection 4 mg First Provider Eval: ED Events Date/Time Event User Comments 01/09/24 1609 Medical Screening Begins OLENA DOYLE NP -- 01/09/24 160 First Provider Evaluation OLENA DOYLE NP -- ED COURSE Labs, chest x-ray, ECG, Aspirin, Zofran, Fentanyl, CT chest ED Course as of 01/09/242115 Sat Jan 09, 20242003 Patient hand off to Lorelei HURST [JA] 181 Impression: No consolidation or pleural effusion. No pneumothorax. [JA] 173 D DIMER(!): 0.87 [JA] ED Course User Index [JA] Olena Doyle NP Diagnosis/Impression as of 01/09/242115 Chest pain, unspecified type Shortness of breath Elevated d-dimer Pneumonia due to infectious organism, unspecified laterality, unspecified part of lung Hypotension, unspecified hypotension type Procedures: EKG-12 Lead ROUTINE ONCE Date/Time: 01/09/2024 4:13 PM Performed by: Olena Doyle NP Authorized by: Olena Doyle NP ECG interpreted by ED Physician in the absence of a vp information technology: yes Previous ECG: Previous ECG: Compared to [...] on file Follow-up: Electronically signed by: Olena Doyle NP 01/09/242004 Associated attestation - Siddharth Bull MD - 01/10/2024 12:21 AM CDT Addendum I was personally available for consultation in the Emergency Department during this encounter and patient evaluation by RUBY Berman MD, [facility] Emergency Medicine [facility]Lfqnjr0520-03-27 10:18:53 Care Transitions Nurse CM made f/u call to patient post-discharge. No answer, call went to voicemail. CM left discreet message with CM's call back information. CM will try again at a later time. MANSOOR Lindsey, RN, CCRN Lead Relay Tester, Transitions of Care [email or web address] [email or web address] Berg RNPremier Health [facility] Hospital NorthUvafqw0611-85-25 10:45:32 Problem: Respiratory Function - Impaired Goal: [...] communication Outcome: Adequate for discharge Delaney Laird [facility]Rtpuvt3200-60-71 05:41:00 Problem: Respiratory Function - Impaired Goal: Able to cough effectively 12/15/2023 0641 by Annette Mota RN Outcome: Progressing as expected 12/15/2023 0640 by Annette Mota RN Outcome: Progressing as expected Goal: Adequate oxygenation 12/15/2023 0641 by Annette Mota RN Outcome: Progressing as expected 12/15/2023 0640 by Annette Mota RN Outcome: Progressing as expected Goal: Patent airway 12/15/2023 0641 by nAnette Mota RN Outcome: Progressing as expected 12/15/2023 0640 by Annette Mota RN Outcome: Progressing as expected Problem: Pain Goal: Control of pain at or below patient's documented comfort goal Outcome: Progressing as expected Goal: Reduction in pain sensation Outcome: Progressing as expected Problem: Discharge Planning Goal: Adequate for discharge Outcome: Progressing as expected Goal: Effective communication Outcome: Progressing as expected [facility] NorthEctfvu7054-11-47 18:20:42 Patient admitted to [facility] ADC 2215 for diagnosis of shortness of breath. Patient agrees to admission, discussed plan of care with patient and family. Patient is awake, A&Ox4, RR even and unlabored on RA. Color appropriate for race. PIV intact x1. No adverse reaction to medications administered while in ED. Belongings with patient to unit. [facility]2024-05-27 18:19:06 Nurse Report Report given to BETH Romero. Chief complaint, assessment findings, infusion verify and orders reviewed. Plan of care discussed with patient and both nurses. Patient/family members verbalized understanding. Lisette Murphy RN [facility]2024-05-27 14:54:55 Report given to Amy Murphy RN. Updated on patient's medical condition, history of present condition and plan of care. T Leo Hyde [facility] HealthLdacmr2145-37-67 13:30:46 Patient arrived in wheelchair with c/o shortness of breath starting this morning. Patient attempted to try her albuterol at home with no success. Patient attempt to feel better with husbands oxygen. Started to complaining of reproducible chest pain approximately 2 hours ago. Hx: CHF T Lisette Murphy [facility] HealthLiyedf5435-66-35 13:24:00 AdmissionCare Guideline: Chest Pain - OBS, [...] care. AdmissionCare documentation entered by: Mj [facility], edition, Copyright ? [address] [facility] [employer] [facility] All Rights Reserved. [id number]:48:23-05:00 T [facility] NorthYsuoaq8101-88-63 18:26:32 Pt requesting to leave AMA, patient educated on risks, and benefits of leaving AMA. Patient continues to request to leave AMA. CCU notified of patients request. Patient educated on risk and benefits. AMA paperwork signed by patient. Duong Tello [facility] HealthPbutrt5912-47-87 14:42:13 Problem: Respiratory Function - Impaired Goal: Adequate oxygenation Outcome: Progressing as expected Goal: Adequate work of breathing Outcome: Progressing as expected Problem: Falls, Risk of Goal: Absence of falls Outcome: Progressing as expected [facility] NorthXqetpo5239-50-69 17:16:35 Report to Rad with EM, care transferred Sheri Tompkins [facility] HealthJxlnpf6142-48-78 16:47:06 Nurse Report Report given to Duong CAMPOS at [facility], Chief complaint, assessment findings, infusion verify and orders reviewed. Sheri Tompkins RN T [place] 306394-05-15 16:40:00 Pt tolerating bipap, updated on status, skinw/d [place] [address]-05-15 16:09:00 Placed on bedpan [facility] NorthLrnkxh2755-89-77 16:08:24 Report to Turner CAMPOS. 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 Selina Llanes [facility] HealthXhgjqq9013-10-66 12:56:00 Associated Order(s): EKG-12 Lead ROUTINE ONCE Pre-Procedure Diagnose(s): Other chest pain Post-Procedure Diagnose(s): Other chest pain [facility] Emergency Department Note Patient Name: Heather Turner Date of : 1970 53 year old female Treatment Room: MI1/MI1 Primary Care Physician: PATIENT DOES NOT HAVE A PCP Patient Escorted by: Family [5] Mode of Arrival: Personal means [1] EMS Treatment Prior to ED Arrival: [facility] treatment: Medication (comment) [facility]AN treatment comments: tylenol PM X2 at 0830, [...] began today. PT was recently admitted to [facility] ICU for PE, chf and cardiogenic shock [...] 08/14/2015 Surgeon: Luis Jones Jr., ESTHER; Location: [facility] TONSILLECTOMY Review of Systems: Review of Systems [...] 0.01 - 0.07 10*3/uL COMP. METABOLIC PANEL (23983) - Abnormal NA 138 135 - 145 [...] VW Cbc with Diff Comp. Metabolic Panel (17628) Troponin I N-Terminal Pro-Bnp BLOOD CULTURE SCREEN [...] or test interpretation with external provider(s): Dr. Suero of [facility] cardiology accepting to CCU. Risk Prescription drug [...] signed by: Connor Renee MD 12/02/23 1632 [facility] - [id number] 10:36:39 TRANSITIONAL CARE MANAGEMENT ASSESSMENT 12/01/2023 Heather Turner [id number] Heather Turner is a 53 year old /White female was admitted on 11/21/[address] She was discharged on 11/28/23 with discharge disposition of HR- Routine Discharge. Admitting Physician: Cr Fry Discharge Diagnosis: Decompensated acute on chronic HFrEF 15-20% EF Cardiogenic shock NSTEMI 2/2 stress induced cardiomyopathy 2/2 PE and drug use No linked episodes TCM Csw-fjce-bn-face outreach documentation: Discharge Assessment Chart Assessed: 12/01/23 [...] cost of $44. 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 management manager .) Do you know how to take your medications?: Yes Supplies Did you receive applicable home medical supplies/equipment?: N/A Follow Up Appointment Has a follow up appointment been scheduled?: No May I assist with scheduling this appointment?: Patient has outside PCP (Patient stated she was told that her providers at at [facility] and will not be following [facility]) Do you have any questions about [...] stated she has to follow up with [facility] Do you understand your discharge [...] activity): as tolerated 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 No unable to [...] N/A Ensure they have contact info for [employer]: na Have you received your DME? N/A [...] go to the emergency room Madeline Mckinley RNUT - [id number] 10:41:04 TRANSITIONAL CARE MANAGEMENT ASSESSMENT 11/30/2023 Heather Turner [id number] Heather Turner is a 53 year old /White female was admitted on 11/21/[address] She was discharged on 11/28/23 with discharge disposition of HR- Routine Discharge. Admitting Physician: Cr Fry Discharge Diagnosis: Decompensated acute on chronic HFrEF 15-20% EF Cardiogenic shock NSTEMI 2/2 stress induced cardiomyopathy 2/2 PE and drug use No linked episodes TCM Url-nzys-wq-face outreach documentation: Transition CM attempted to contact patient for post discharge follow up. CM left a message with male friend contact as he stated patient was asleep and not available. Future Appointments: Madeline Mckinley [facility]71 15:39:19 Problem: Bleeding, Risk of Goal: Absence [...] breakdown Outcome: Adequate for discharge Aliyah Francisco [facility]turoq9614-04-52 14:00:02 Problem: Discharge Planning Goal: Adequate for discharge 11/27/2023 135 by Merlyn Ndiaye RN Outcome: Progressing as expected 11/27/2023950 by Merlyn Ndiaye RN Outcome: Progressing as expected Problem: Bleeding, Risk of Goal: Absence of impaired coagulation signs and symptoms 11/27/2023 135 by Merlyn Ndiaye, BETH Outcome: Progressing as expected 11/27/2023950 by Merlyn Ndiaye RN Outcome: Progressing as expected Goal: Absence of active bleeding 11/27/20231358 by Merlyn Ndiaye, BETH Outcome: Progressing as expected 11/27/2023950 by Merlyn [...] RN Outcome: Progressing as expected Merlyn Ndiaye [facility] - Fsltzm1617-30-16 09:51:54 Problem: Bleeding, Risk of Goal: Absence [...] skin breakdown Outcome: Progressing as expected [facility]2024-05-10 05:16:42 Problem: Bleeding, Risk of Goal: Absence [...] new skin breakdown Outcome: Progressing as expected [facility] Mariely Wallace [facility]qtdsb2614-85-24 17:12:17 Problem: Bleeding, Risk of Goal: Absence [...] skin breakdown Outcome: Progressing as expected [facility]2024-05-08 05:27:41 Problem: Bleeding, Risk of Goal: Absence [...] breakdown Outcome: Progressing as expected Luda Vee [facility]Iytrqk9237-41-48 18:52:11 Summary: [facility] [place] Note Spoke with Rich Spencer from [facility] [place] at 18:12. Case #[id number]. Brice Jackson [facility]Njtyug7828-95-21 10:16:03 Problem: Bleeding, Risk of Goal: Absence [...] new skin breakdown Outcome: Progressing as expected [facility] 10:41:53 Problem: Bleeding, Risk of Goal: Absence [...] in pain sensation 11/23/2023 1041 by Brice Jacskon RN Outcome: Progressing as expected 11/23/2023 1040 by Brice Jackson RN Outcome: Progressing as expected Problem: Skin integrity Impaired (Risk or Actual) Goal: Prevention of new skin breakdown 11/23/2023 1041 by Brice Jackson RN Outcome: Progressing as expected 11/23/2023 1040 by Brice Jackson RN Outcome: Progressing as expected [facility] - Ryjwyb2443-59-85 10:40:04 Problem: Bleeding, Risk of Goal: Absence [...] skin breakdown Outcome: Progressing as expected T [facility]xkeuf5839-99-14 05:54:04 Problem: Bleeding, Risk of Goal: Absence [...] new skin breakdown Outcome: Progressing as expected [facility] Hamlet Osullivan [facility] HealthWnzfix1767-33-05 23:58:07 Patient transferred to [place] for diagnosis of chest pain, NSTEMI, COPD exacerbation Patient agrees to transfer/admit plan and verbalized understanding of plan of care, family aware of plan Patient awake alert, oriented, resp reg unlabored, skin w/d PIV patent, no s/s infiltration noted, heparin infusing No adverse reaction to medications given while in ED. Report given to [facility] EMS personnel [facility]ana [facility]qlttl1055-96-61 23:55:09 Nurse Report Report given to BETH Zuleta in [place]. Chief complaint, assessment findings, infusion verify and orders reviewed. Plan of care discussed with nurse. Nery Orellana RN [place] [id number] 23:18:14 Associated Order(s): Critical Care Critical Care [...] separately billable procedures and treating other patients. [facility]mhjoa5650-44-58 23:11:13 Pt c/o difficulty breathing at this time. Pt placed on 2L O2 NC for comfort. TNEY Diehl [facility]2024-05-04 21:15:59 Summary: Triage CC: patient family [...] self Appears in mild distress Alma Gould [facility] - Wfoceh2488-99-23 21:07:00 EMERGENCY DEPARTMENT ENCOUNTER [facility] Patient Name: Heather Turner Date of : 1970 53 year old Exam Room:MI2/[facility] Primary Care Physician: PATIENT DOES NOT HAVE A PCP Pre- Hospital Patient Escorted by: Family [5] Mode of Arrival: Personal means [1] EMS Treatment Prior to ED Arrival: [facility]AN treatment: None ED Events Date/Time Event User [...] 08/14/2015 Surgeon: Luis Jones Jr., DPM; Location: [facility] TONSILLECTOMY Allergies Allergies Allergen Reactions Green Tea [...] PLT ESTIMATE Normal Normal COMP. METABOLIC PANEL (18840) - Abnormal NA 134 (*) 135 - [...] consolidation or pleural effusion. No pneumothorax. RL: 2821 End of Report Orders and Treatments Orders Placed This Encounter Procedures Critical Care XR CHEST 1 VW CBC WITH DIFF COMP. METABOLIC PANEL (55463) AMYLASE TROPONIN I N-TERMINAL PRO-BNP URINALYSIS URINE [...] exacerbation. She will be transferred down to [place] to the [place] team in the cardiology [...] on file Megan Rondon Jr., MD Clinical Cancer Registry Coordinator [facility] Emergency Department [email or web address] is used frequently and may produce errors. Promptly contact for obvious discrepancies. Megan Rondon MD 11/21/23 6591 [facility] - [id number] 11:34:02 Chief Complaint Patient presents with Follow-up Hospitalization Krissy Cannon LVN [facility] CynthiaRadha Lgstrc1310-47-36 16:08:34 Bryan spoke to patient and patient decided to leave AMA. AMA form signed by patient and attached to paperwork. Patient in stable condition with AMA. IV line removed and patient was assisted onto wheelchair and moved to the lobby. Patient called her prior to leaving room and will be picking up patient. ME Dumont [facility]Nhbrwq2923-22-00 15:56:21 Patient requesting to talk to provider - provider aware. Patient refused tylenol as she said medication does not improve her condition and she does not want to throw it up. Patient also refusing blood draw at this time. [facility]2024-01-24 14:50:00 Patient's name and verified with patient. [...] of plan of care. Steph Dumont RN [place] 05282-01-24 14:17:22 Patient had witnessed seizure like activity. DO Flor at bedside. Patient stopped seizure activity and had no postictal phase. Patient coherent, alert and oriented/answering all questions appropriately. [place] [id number] 13:45:33 Patient here for chest pain that started approximately 1 hour ago. Patient had seizure like activity in the vehicle while attempting to get patient out of the car, patient had no post ictal phase. Patient c/o substernal chest pain and jaw pain. 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 METABOLIC PANEL (03414) - Abnormal NA 140 135 - 145 [...] Procedures Cbc with Diff Comp. Metabolic Panel (24953) Urinalysis Lactic Acid Whole Blood Troponin I Orders Placed This Encounter Medications lacosamide (VIMPAT) 100 mg in NaCl 0.9% (NS) 50 mL piggyback acetaminophen (TYLENOL) tablet 1,000 mg First Provider Eval: ED Events Date/Time Event User Comments 08/12/23 1345 Medical Screening Begins MJ BRYAN -- 08/12/23 1345 First Provider Evaluation BRYAN MJ -- ED COURSE ED Course as of [...] for follow-up Yehuda Arcos MD Specialty: PN-NEUROLOGY [facility] AND [address] [id number] [facility]-Emergency Department Specialty: Emergency Medicine [address] [place] [id number] Instructions: If symptoms worsen as documented in the discharge Electronically signed by: Mj Bryan DO 08/12/23 1605 Mj Bryan DO 08/12/23 1605 [facility]
--- NOTE | 2024-09-21 15:19 | RAD REPORT ---
EXAMINATION: CT HEAD WITHOUT CONTRAST CT CERVICAL SPINE WITHOUT CONTRAST CLINICAL INDICATION: Female, 54 years old. PAIN TECHNIQUE: Axial CT images from the skull base to the vertex without intravenous contrast. Axial CT i mages through the cervical spine were obtained without intravenous contrast. Sagittal and coronal reformatted images were created from the data set. Coronal and sagittal reformatted images were creat ed from the data set. One or more of the following dose reduction techniques were used: Automated exposure control, adjustment of the mA and/or kV according to patient size, and/or iterative reconstr uction. Unless otherwise specified, incidental findings do not require dedicated imaging follow-up. [id number]. COMPARISON: 06/13/2024 FINDINGS: Head: INTRACRANIAL: No acute intracranial hemorrhage. No hydrocephalus. No mass effect or midline shift. No significant white matter disease. VASCULATURE: No visualized abnormalities in the arteries or dural venous sinuses. SCALP/SKULL: No calvarial fracture identified. No acute soft tissue abnormality. SINUSES: The visualized paranasal sinuses are mostly clear. No significant mastoid fluid. Cervical spine: ALIGNMENT: The cervical spine has normal alignment without scoliosis or spondylolisthesis. BONE: Status post C3-4 fusion and C4-C6 ACDF. Interbody cage present at C3-4. Incomplete osseous fusi on is present this level which is similar to prior. DEGENERATIVE: Degenerative changes are present below the level of fusion at C7-T1 with severe left ne ural foraminal narrowing. Moderate bilateral neural foraminal narrowing is present at C3-4 as well. No high-grade central spinal stenosis. SOFT TISSUE: Carotid artery calcifications. IMPRESSION: No acute intracranial abnormality. No acute fracture or traumatic malalignment of the cervical spine.
--- NOTE | 2024-09-21 15:27 | RAD REPORT ---
EXAM: Chest Single View HISTORY: 54 years Female PAIN COMPARISON: 07/17/2024 FINDINGS: LUNGS/PLEURA: The lungs are clear. No pleural effusions or pneumothorax. No pulmonary edema. CARDIAC/MEDIASTINUM: The cardiac silhouette is within normal limits. UPPER ABDOMEN: No significant abnormality. BONES: No acute abnormality. LINES/TUBES/OTHER: ACDF hardware in the cervical spine IMPRESSION: No evidence of acute cardiopulmonary disease. No significant change from prior.
--- NOTE | 2024-09-21 15:39 | RAD REPORT ---
EXAM: CT CHEST, ABDOMEN AND PELVIS WITHOUT CONTRAST CLINICAL INDICATION: Female, 54 years old TRAUMA TECHNIQUE: CT chest, abdomen and pelvis was performed, without IV contrast, as per department protoco l. Axial, sagittal and coronal reconstructions were obtained. One or more of the following dose reduction techniques were used: Automated exposure control, adjustment of the mA and/or kV according to the patient size, and/or iterative reconstruction. Unless otherwise specified, incidental findings do not require dedicated imaging follow-up. [id number]. COMPARISON: 07/17/2024, 06/13/2024 FINDINGS: The lack of intravenous contrast limits the sensitivity of this exam for evaluation of solid visceral organs, vascular structures, and retroperitoneum. THORAX: LOWER NECK AND CHEST WALL: Visualized thyroid gland and soft tissues are normal. LUNGS AND AIRWAYS: Airways are clear. No evidence of airspace or interstitial process.No suspicious a nd/or stable pulmonary nodules. PLEURA: No pleural effusion. No pneumothorax. MEDIASTINUM AND LYMPH NODES: No mediastinal mass or fluid collection. Normal size mediastinal, hilar, and axillary lymph nodes. Mild distal esophageal thickening. THORACIC AORTA: No thoracic aortic aneurysm. Atherosclerotic changes are present. PULMONARY ARTERIES: Caliber is within normal limits. HEART: Normal heart size. Severe coronary artery calcifications.Small pericardial effusion. ABDOMEN/PELVIS: UPPER GI: No significant abnormality. LIVER: No significant focal abnormality. GALLBLADDER/BILE DUCTS: Cholecystectomy. Mild extra-hepatic biliary ductal dilatation is likely relat ed to the post-cholecystectomy state. Consider correlating with LFT's.? PANCREAS: No mass, ductal dilation, or chelsea-pancreatic fluid. SPLEEN: Unremarkable. ADRENALS: Left adrenal nodule measuring 2.6 cm with Hounsfield units compatible with an adenoma. This is unchanged. KIDNEYS AND URETERS: No hydronephrosis.Limited evaluation for renal lesions in the absence of IV cont rast.Nonobstructing renal calculi. ABDOMINAL AORTA AND OTHER VESSELS: Moderate atherosclerotic changes without aortic aneurysm. PERITONEUM: No abnormal free fluid. No free air. LYMPH NODES: No pathologic lymphadenopathy. ABDOMINAL WALL: Unremarkable SMALL BOWEL/COLON: Small bowel has normal course and caliber. No colonic wall thickening or pericolon ic inflammatory changes.Normal appendix. Mild diverticulosis without diverticulitis. Mild formed colonic stool burden. URINARY BLADDER: Underdistended but grossly unremarkable. REPRODUCTIVE ORGANS: No pathologic process. COMBINED: MUSCULOSKELETAL: Multilevel degenerative changes in the spine. No acute fracture. ADDITIONAL FINDINGS: None. IMPRESSION: No evidence of significant trauma to the chest, abdomen, or pelvis. Incidental findings as noted above,
[2024-09-21 16:00] LABS: Absolute Basophils 0.1 K/uL (0-0.5); Absolute Eosinophils 0.1 K/uL (0-0.5); Absolute Lymphocytes (CBC) 2.1 K/uL (0.7-4.9); Absolute Monocytes 0.8 K/uL (0.1-1.3); Basophils % 0.9 % (0-1.3); Eosinophils % 1.2 % (0-4.4); Hematocrit 42.4 % (36.0-45.0); Hemoglobin 14.3 g/dL (12.0-15.0); Lymphocytes % 23.2 % (15.3-44.8); MCH 28.8 pg (27.0-35.0); MCHC 33.8 g/dL (32.0-36.0); MCV 85.4 fL (80-100); MPV 6.7 fL (7.6-11.3); Monocytes % 9.1 % (3.3-12.3); Neutrophils % 65.6 % (41.7-73.7); Nucleated Red Blood Cells % 0.1 % (0-0); Platelets 476 thou/uL (152-406); RBC Red Blood Cell Count 4.97 M/uL (3.86-4.86)
[2024-09-21] MEDS ORDERED: ONDANSETRON 4 MG/2 ML VIAL ONE ×2 (16:15→20:35)
[2024-09-21] MEDS ORDERED: MORPHINE 4 MG/ML SYR ONE ×2 (16:15→20:36)
[2024-09-21 16:16] LABS: Albumin 3.3 g/dL (3.4-5.0); Albumin/Globulin Ratio 0.8 (1.1-1.8); Alkaline Phosphatase 112 U/L (45-117); Anion Gap 9.7 mEq/L (5.0-15.0); BUN Blood Urea Nitrogen 6 mg/dL (7-18); Bicarbonate 22 mEq/L (21-32); Bilirubin Total 0.3 mg/dL (0.2-1.0); Globulin 4.3 g/dL (2.3-3.5); Glomerular Filtration Rate 104 ml/min (=/>90); Glucose Level 103 mg/dL (74-106); Lipase 63 U/L (13-75); Magnesium 2.3 mg/dL (1.6-2.4); NT PRO-BNP 1358 pg/mL (<125); Potassium 3.7 mEq/L (3.5-5.1); Protein, Total 7.6 g/dL (6.4-8.2); Sodium Level 138 mEq/L (136-145); Troponin High Sensitivity 18.3 pg/mL (<58.9)
[2024-09-21] MEDS ORDERED: NA CHLORIDE 0.9% 1,000 ML ONE ×2 (16:16→20:33)
--- NOTE | 2024-09-21 16:35 | RAD REPORT ---
EXAM: Knee Right 3 View INDICATION: PAIN COMPARISON: None FINDINGS: No acute fracture. No significant knee effusion. Patellar enthesophytes. Minimal peripheral vascular calcifications. Other: N/A IMPRESSION: No acute osseous abnormality involving the imaged knee.
[2024-09-21 16:36] LABS: ALT/SGPT < 14 U/L (13-56); AST/SGOT < 10 U/L (15-37)
[2024-09-21 16:37] LABS: Bilirubin Direct < 0.2 mg/dL (0-0.2); Bilirubin Indirect, Calculated 0.1 mg/dL (0.2-0.8)
--- NOTE | 2024-09-21 18:45 | ER ---
Nurse's Notes [facility] Name: Heather Coon Age: 54 yrs Sex: Female : 1970 Arrival Date: 09/21/2024 Time: 14:26 Bed 16 Private MD: Diagnosis: COPD/ Chronic obstructive pulmonary disease, unspecified;Syncope Near;Fall on same level, unspecified;Weakness;Vomiting;Dehydration;Tobacco abuse counseling;Tobacco use;Chest pain, unspecified Presentation: 09/21 15:02 Chief complaint: EMS states: Chest pain after falling in bathroom, took 1 nitro, EMS ph gave 324 ASA, VSS. Coronavirus screen: Vaccine status: Patient reports being unvaccinated. Ebola Screen: No symptoms or risks identified at this time. Initial Sepsis Screen: Does the patient meet any 2 criteria? No. Patient's initial sepsis screen is negative. Does the patient have a suspected source of infection? No. Patient's initial sepsis screen is negative. Risk Assessment: Do you want to hurt yourself or someone else? Patient reports no desire to harm self or others. Onset of symptoms was September 21, 2024. 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 - Infectious Disease History:: Denies. - Family history:: not pertinent. - Social history:: Smoking status: . Screenin:06 [facility] ED Fall Risk Assessment (Adult) History of falling in the last 3 months, ph including since admission Yes- single mechanical fall (1 pt) Confusion or Disorientation No (0 pts) Intoxicated or Sedated No (0 pts) Impaired Gait No (0 pts) Mobility Assist Device Used No (0 pt) Altered Elimination No (0 pt) Score/Fall Risk Level 0 - 2 = Low Risk Oriented to surroundings, Maintained a safe environment, Hourly rounding (assess needs \T\ fall precautionary measures) done. Abuse screen: Denies threats or abuse. Denies injuries from another. Nutritional screening: No deficits noted. Tuberculosis screening: No symptoms or risk factors identified. Assessment: 17:10 General: Appears in no apparent distress. Behavior is calm, cooperative. Pain: ph Complains of pain in chest and left lower quadrant. Neuro: Level of Consciousness is awake, alert, obeys commands, Oriented to person, place, time, situation. Cardiovascular: Capillary refill < 3 seconds in bilateral fingers Patient's skin is warm and dry. Respiratory: Airway is patent Respiratory effort is even, unlabored. GI: Abdomen is non-distended, Reports lower abdominal pain, diarrhea, nausea, vomiting. Derm: Skin is pink, warm \T\ dry. Musculoskeletal: Reports pain in right knee. 19:06 General: Appears in no apparent distress. comfortable, Behavior is calm, cooperative. al5 Pain: Complains of pain in right knee and chest and left lower quadrant. Neuro: Level of Consciousness is awake, alert, obeys commands, Oriented to person, place, time, situation. Cardiovascular: Capillary refill < 3 seconds Patient's skin is warm and dry. Respiratory: Airway is patent Respiratory effort is even, unlabored, Respiratory pattern is regular, symmetrical. GI: Abdomen is non-distended, Reports lower abdominal pain, nausea. : No signs and/or symptoms were reported regarding the genitourinary system. EENT: No signs and/or symptoms were reported regarding the EENT system. Derm: Skin is intact, is healthy with good turgor, Skin is pink, warm \T\ dry. normal. Musculoskeletal: Reports pain in right knee. Vital Signs: 15:02 BP 158 / 103; Pulse 106; Resp 18; Temp 98.4; Pulse Ox 99% on R/A; ph 17:11 BP 148 / 99; Pulse 96; Resp 18; Pulse Ox 95% on R/A; ph 18:00 BP 138 / 99; Pulse 95; Resp 18; Pulse Ox 98% on R/A; ph 19:00 BP 121 / 74; Pulse 86; Resp 16; Pulse Ox 97% on R/A; al5 Vitals: 17:11 Cardiac Rhythm Assessment Regular. ph NIH Stroke Scale Scores: 18:39 NIHSS Score: 0 [facility] ED Course: 14:45 Patient arrived in ED. bd 14:49 Derrick Santillan MD is Attending Physician. fabrice 15:01 Head C Spine Mpr Wo Con In Process Unspecified. EDMS 15:02 Chest Abd Pelvis Wo Con In Process Unspecified. EDMS 15:04 Triage completed. ph 15:04 Arm band placed on Patient placed in an exam room, on a stretcher, on pulse oximetry. ph 15:06 Patient has correct armband on for positive identification. Bed in low position. Call ph light in reach. Side rails up X 1. Pulse ox on. NIBP on. Door closed. Noise minimized. Warm blanket given. Pillow given. 15:22 XRAY Chest (1 view) In Process Unspecified. EDMS 15:30 Missed attempt(s): 22 gauge in left forearm. Bleeding controlled, band aid applied, ph catheter tip intact. 15:38 Evonne Lord, RN is Primary Nurse. ph 15:38 Initial lab(s) drawn, by sd, sent to lab. Inserted saline lock: 22 gauge in right ph forearm, using aseptic technique. Blood collected. Flushed with 10 mL NS. 16:30 Knee Right 3 View XRAY In Process Unspecified. EDMS 17:13 No provider procedures requiring assistance completed. ph 18:43 Shelly Tsai MD is Hospitalizing Provider. fabrice 19:06 Provided Education on: need for admission. al5 19:06 Patient admitted, IV remains in place. al5 19:21 Primary Nurse role handed off by Evonne Lord, RN rv1 21:00 Freida Paris RN is Primary Nurse. al5 Administered Medications: 15:39 Not Given (given by EMS): aspirinchewable tablet 81 mg PO once ph 17:12 Drug: NS 0.9% IV 1000 ml IV at 1000 ml once; to be given as a bolus over 60 minutes ph Route: IV; Rate: 1000 ml; Site: right forearm; 18:30 Follow up: Response: No adverse reaction; IV Status: Completed infusion; IV Intake: ph 1000ml 17:12 Drug: morphine IVP or IV 4 mg IVP once over 4 mins Route: IVP; Infused Over: 4 mins; ph Site: right forearm; 17:45 Follow up: Response: No adverse reaction; Pain is decreased ph 17:12 Drug: Ondansetron IVP 4 mg IVP once; over 2 minutes Route: IVP; Site: right forearm; ph 19:23 Follow up: Response: No adverse reaction ph 20:53 Drug: Banana Bag - (Multivitamin IV 1 amp, NS 0.9% IV 1000 ml, Thiamine IV 100 mg, al5 foLIC Acid IVPB 1 mg) IV at 125 ml/hr once Route: IV; Rate: 125 ml/hr; Site: right forearm; 09/22 00:38 Follow up: Response: No adverse reaction; IV Status: Infusion continued upon admission 5 09/21 20:53 Drug: Levalbuterol Inhalation 2.5 mg Inhalation once Route: Inhalation; al5 09/22 00:38 Follow up: Response: No adverse reaction al5 09/21 20:54 Drug: Famotidine IVP 20 mg IVP once; dilute with 10 mL 0.9% NaCl; give over 2 minutes al5 Route: IVP; Site: right forearm; 09/22 00:37 Follow up: Response: No adverse reaction 5 09/21 21:00 Drug: Aspirin PO Chewable Tablet 162 mg PO once Route: PO; al5 09/22 00:37 Follow up: Response: No adverse reaction 5 09/21 21:00 Drug: morphine IVP or IV 4 mg IVP once over 4 mins Route: IVP; Infused Over: 4 mins; al5 Site: right forearm; 09/22 00:37 Follow up: Response: No adverse reaction; Pain is decreased al5 09/21 21:00 Drug: Ondansetron IVP 4 mg IVP once; over 2 minutes Route: IVP; Site: right forearm; al5 09/22 00:37 Follow up: Response: No adverse reaction; Nausea is decreased al5 09/21 21:01 Drug: Ipratropium Inhalation Aerosol 0.5 mg Inhalation once Route: Inhalation; al5 09/22 00:38 Follow up: Response: No adverse reaction al5 00:37 Drug: MethylPrednisoLONE IVP 125 mg IVP once Route: IVP; Site: right forearm; al5 11:03 Follow up: Response: No adverse reaction cm10 Medication: 09/21 15:07 VIS not applicable for this client. ph Intake: 18:30 IV: 1000ml; Total: 1000ml. ph Outcome: 18:44 Decision to Hospitalize by Provider. fabirce 19:06 Admitted to ER Hold. Please see [facility] for further documentation. al5 19:06 Condition: stable 19:06 Instructed on the need for admit, 09/22 12:14 Patient left the ED. cm10 NIH Stroke Scale - NIH Stroke Score Date: 09/21/2024 Time: 18:39 Total Score = 0 10. Dysarthria (speech clarity - read or repeat words) - 0(Normal) 11. Extinction and Inattention (visual/tactile/auditory/spatial/personal) - 0(No abnormality) 1a. Level of Consciousness (LOC) - 0(Alert) 1b. Level of Consciousness (LOC) (Month \T\ Age) - 0(Both) 1c. LOC Commands (Open \T\ Closes Eyes/Propagator) - 0(Both) 2. Best Gaze (Lateral Gaze Paresis) - 0(Normal) 3. Visual Field Loss - 0(No visual loss) 4. Facial Palsy - 0(Normal) 5a. Left Arm: Motor (10-second hold) - 0(No drift) 5b. Right Arm: Motor (10-second hold) - 0(No drift) 6a. Left Leg: Motor (5-second hold - always test supine) - 0(No drift) 6b. Right Leg: Motor (5-second hold - always test supine) - 0(No drift) 7. Limb Ataxia (finger/nose \T\ heel/rm - test with eyes open) - 0(Absent) 8. Sensory Loss (pinprick arms/legs/face) - 0(Normal) 9. Best Language: Aphasia (description/naming/reading) - 0(No aphasia) Initials: [facility] Signatures: Dispatcher [employer] EDMS Catherine Dewey Corey, MD MD cha Hall, Patricia RN RN Makenna Kirk rv1 Maile Orellana RN RN cm10 Freida Paris RN RN al5 Corrections: (The following items were deleted from the chart) 09/21 20:54 20:53 Banana Bag - (NS 0.9% IV 1000 ml, foLIC Acid IVPB 1 mg, Thiamine IV 100 al5 mg, Multivitamin IV 1 amp) IV at 125 ml/hr in right antecubital al5
--- NOTE | 2024-09-21 18:45 | EDPHYS ---
Physician Documentation [facility] Name: Heather Coon Age: 54 yrs Sex: Female : 1970 Arrival Date: 09/21/2024 Time: 14:26 Bed 16 Private MD: ED Physician Derrick Santillan HPI: 09/21 18:30 This 54 yrs old Female presents to ER via EMS with complaints of abdominal fabrice pain, syncope, fall, copd. 18:30 Trauma demographics: County: The injury occurred in [place]. Mechanism of injury: fabrice Fall: the patient fell from a standing position. Associated injuries: The patient sustained injury to the chest, injury to the abdomen, right leg, painful injury. Onset: The symptoms/episode began/occurred 1 day(s) ago. The patient presents with a contusion, pain, that is acute. The complaints affect the right knee. Modifying factors: The symptoms are alleviated by elevating leg, the symptoms are aggravated by movement, bending knee. The patient has shortness of breath with light activity. The patient's shortness of breath is aggravated by coughing, light activity. The patient has experienced near-syncope, almost passed out, felt dizzy, felt faint. 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 - Infectious Disease History:: Denies. - Family history:: not pertinent. - Social history:: Smoking status: . ROS: 18:30 Constitutional: Negative for fever, chills, and weight loss, Eyes: Negative for injury, fabrice pain, redness, and discharge, ENT: Negative for injury, pain, and discharge, Neck: Negative for injury, pain, and swelling, Cardiovascular: Negative for chest pain, palpitations, and edema, Abdomen/GI: Negative for abdominal pain, nausea, vomiting, diarrhea, and constipation, Back: Negative for injury and pain, : Negative for injury, bleeding, discharge, and swelling, Skin: Negative for injury, rash, and discoloration, Psych: Negative for depression, anxiety, suicide ideation, homicidal ideation, and hallucinations, Allergy/Immunology: Negative for hives, rash, and allergies, Endocrine: Negative for neck swelling, polydipsia, polyuria, polyphagia, and marked weight changes, Hematologic/Lymphatic: Negative for swollen nodes, abnormal bleeding, and unusual bruising, 18:30 Respiratory: Positive for cough, "sounds productive", wheezing, expiratory, 18:30 MS/extremity: Positive for pain, of the right leg, Exam: 18:30 Constitutional: This is a well developed, well nourished patient who is awake, alert, fabrice and in no acute distress. Head/Face: Normocephalic, atraumatic. Eyes: Pupils equal round and reactive to light, extra-ocular motions intact. Lids and lashes normal. Conjunctiva and sclera are non-icteric and not injected. Cornea within normal limits. Periorbital areas with no swelling, redness, or edema. ENT: Nares patent. No nasal discharge, no septal abnormalities noted. Tympanic membranes are normal and external auditory canals are clear. Oropharynx with no redness, swelling, or masses, exudates, or evidence of obstruction, uvula midline. Mucous membranes moist. Neck: Trachea midline, no thyromegaly or masses palpated, and no cervical lymphadenopathy. Supple, full range of motion without nuchal rigidity, or vertebral point tenderness. No Meningismus. Chest/axilla: Normal chest wall appearance and motion. Nontender with no deformity. No lesions are appreciated. Cardiovascular: Regular rate and rhythm with a normal S1 and S2. No gallops, murmurs, or rubs. Normal PMI, no JVD. No pulse deficits. Abdomen/GI: Soft, non-tender, with normal bowel sounds. No distension or tympany. No guarding or rebound. No evidence of tenderness throughout. Back: No spinal tenderness. No costovertebral tenderness. Full range of motion. Female : Normal external genitalia. Skin: Warm, dry with normal turgor. Normal color with no rashes, no lesions, and no evidence of cellulitis. Neuro: Awake and alert, GCS 15, oriented to person, place, time, and situation. Cranial nerves II-XII grossly intact. Motor strength 5/5 in all extremities. Sensory grossly intact. Cerebellar exam normal. Normal gait. Psych: Awake, alert, with orientation to person, place and time. Behavior, mood, and affect are within normal limits. 18:30 ECG was reviewed by the Attending Physician. 18:30 Respiratory: the patient does not display signs of respiratory distress, Respirations: normal, no acute changes, Breath sounds: bronchial sounds, that are mild, decreased breath sounds, that are mild, rhonchi, that are mild, Respiratory rate: 18 18:39 Musculoskeletal/extremity: DVT Exam: No signs of deep vein thrombosis. no pain, no fabrice swelling, no tenderness, negative Homans' sign noted on exam, no appreciated bluish discoloration, no erythema, no increased warmth, Vital Signs: 15:02 BP 158 / 103; Pulse 106; Resp 18; Temp 98.4; Pulse Ox 99% on R/A; ph 17:11 BP 148 / 99; Pulse 96; Resp 18; Pulse Ox 95% on R/A; ph 18:00 BP 138 / 99; Pulse 95; Resp 18; Pulse Ox 98% on R/A; ph 19:00 BP 121 / 74; Pulse 86; Resp 16; Pulse Ox 97% on R/A; al5 NIH Stroke Scale Scores: 18:39 NIHSS Score: 0 fabrice MDM: 14:50 Medical Screening Exam initiated fabrice 18:40 Differential diagnosis: intra-abdominal injury, closed head injury, Bronchitis CHF fabrice exacerbation, Chronic Obstructive Pulmonary Disease pneumonia, reactive airway disease. Antibiotic administration: Not indicated. Differential Diagnosis: cardiac arrhythmia, cerebrovascular accident, emotional response, GI bleed, vasovagal episode. Immunization status: Influenza vaccine: within last 5 years. Data reviewed: vital signs, nurses notes, EMS record, lab test result(s), EKG, radiologic studies, CT scan, plain films. Consideration of Admission/Observation Patient was admitted/placed on observation. Escalation of care including admission/observation considered. I considered the following discharge prescriptions or medication management in the emergency department Medications were administered in the Emergency Department. See MAR. Independent interpretation of the following test(s) in the Emergency Department EKG: See my EKG interpretation above. Test considered but Not performed: Ultrasound no 2 d echo. MRI: no mri brain. Historians other than the Patient: pt well informed. Care significantly affected by the following chronic conditions: Chronic Obstructive Pulmonary Disease, tobacco abuse, bipolar. Counseling: I had a detailed discussion with the patient and/or guardian regarding the historical points, exam findings, and any diagnostic results supporting the discharge/admit diagnosis, lab results, radiology results, the need for further work-up and treatment in the hospital. 09/21 14:51 Order name: Basic Metabolic Panel; Complete Time: 18:15 fabrice 09/21 14:51 Order name: CBC with Diff; Complete Time: 18:15 fabrice 09/21 14:51 Order name: LFT's; Complete Time: 18:15 [facility] 09/21 14:51 Order name: Magnesium; Complete Time: 18:15 [facility] 09/21 14:51 Order name: NT PRO-BNP; Complete Time: 18:15 [facility] 09/21 14:51 Order name: PT-INR; Complete Time: 10:22 [facility] 09/21 14:51 Order name: Troponin HS; Complete Time: 18:15 [facility] 09/21 14:51 Order name: Lipase; Complete Time: 18:15 [facility] 09/21 14:51 Order name: Urinalysis w/ reflexes [facility] 09/21 20:51 Order name: Thyroid Stimulating Hormone [facility] 09/21 20:51 Order name: Urinalysis w/ reflexes [facility] 09/21 20:51 Order name: Basic Metabolic Panel [facility] 09/21 20:51 Order name: Basic Metabolic Panel; Complete Time: 10:22 EDAZ 09/21 20:51 Order name: Basic Metabolic Panel [facility] 09/22 08:06 Order name: Thyroid Stimulating Hormone; Complete Time: 10:22 EDAZ 09/22 08:23 Order name: Glucose, Ancillary Testing; Complete Time: 10:22 EDAZ 09/21 14:51 Order name: XRAY Chest (1 view); Complete Time: 18:15 fabrice 09/21 14:58 Order name: Chest Abd Pelvis Wo Con; Complete Time: 18:15 EDAZ 09/21 15:00 Order name: Head C Spine Mpr Wo Con; Complete Time: 18:15 EDAZ 09/21 16:12 Order name: Knee Right 3 View XRAY; Complete Time: 18:15 09/21 14:51 Order name: EKG; Complete Time: 14:52 fabrice 09/21 20:52 Order name: Patient Safety Orders [facility] 09/21 14:51 Order name: Cardiac monitoring; Complete Time: 18:27 [facility] 09/21 14:51 Order name: EKG - Nurse/Tech; Complete Time: 18:27 [facility] 09/21 14:51 Order name: IV Saline Lock; Complete Time: 15:39 [facility] 09/21 14:51 Order name: Labs collected and sent; Complete Time: 15:39 [facility] 09/21 14:51 Order name: O2 Per Protocol; Complete Time: 15:39 [facility] 09/21 14:51 Order name: O2 Sat Monitoring; Complete Time: 15:39 [facility] 09/21 16:02 Order name: Labs - recollect needed: recollect blue top; Complete Time: 20:59 bd EC:30 Rate is 100 beats/min. Rhythm is regular. QRS [place] is Normal. MI interval is normal. fabrice QRS interval is normal. QT interval is normal. No Q waves. T waves are Normal. No ST changes noted. Clinical impression: NSR w/ Non-specific ST/T Changes and No evidence of ischemia. Interpreted by me. Reviewed by me. Administered Medications: 15:39 Not Given (given by EMS): aspirinchewable tablet 81 mg PO once ph 17:12 Drug: NS 0.9% IV 1000 ml IV at 1000 ml once; to be given as a bolus over 60 minutes ph Route: IV; Rate: 1000 ml; Site: right forearm; 18:30 Follow up: Response: No adverse reaction; IV Status: Completed infusion; IV Intake: ph 1000ml 17:12 Drug: morphine IVP or IV 4 mg IVP once over 4 mins Route: IVP; Infused Over: 4 mins; ph Site: right forearm; 17:45 Follow up: Response: No adverse reaction; Pain is decreased ph 17:12 Drug: Ondansetron IVP 4 mg IVP once; over 2 minutes Route: IVP; Site: right forearm; ph 19:23 Follow up: Response: No adverse reaction ph 20:53 Drug: Banana Bag - (Multivitamin IV 1 amp, NS 0.9% IV 1000 ml, Thiamine IV 100 mg, al5 foLIC Acid IVPB 1 mg) IV at 125 ml/hr once Route: IV; Rate: 125 ml/hr; Site: right forearm; 09/22 00:38 Follow up: Response: No adverse reaction; IV Status: Infusion continued upon admission al5 09/21 20:53 Drug: Levalbuterol Inhalation 2.5 mg Inhalation once Route: Inhalation; al5 09/22 00:38 Follow up: Response: No adverse reaction al5 09/21 20:54 Drug: Famotidine IVP 20 mg IVP once; dilute with 10 mL 0.9% NaCl; give over 2 minutes al5 Route: IVP; Site: right forearm; 09/22 00:37 Follow up: Response: No adverse reaction al5 09/21 21:00 Drug: Aspirin PO Chewable Tablet 162 mg PO once Route: PO; al5 09/22 00:37 Follow up: Response: No adverse reaction al5 09/21 21:00 Drug: morphine IVP or IV 4 mg IVP once over 4 mins Route: IVP; Infused Over: 4 mins; al5 Site: right forearm; 09/22 00:37 Follow up: Response: No adverse reaction; Pain is decreased al5 09/21 21:00 Drug: Ondansetron IVP 4 mg IVP once; over 2 minutes Route: IVP; Site: right forearm; al5 09/22 00:37 Follow up: Response: No adverse reaction; Nausea is decreased al5 09/21 21:01 Drug: Ipratropium Inhalation Aerosol 0.5 mg Inhalation once Route: Inhalation; al5 09/22 00:38 Follow up: Response: No adverse reaction al5 00:37 Drug: MethylPrednisoLONE IVP 125 mg IVP once Route: IVP; Site: right forearm; al5 11:03 Follow up: Response: No adverse reaction cm10 Disposition Summary: 09/21/24 18:44 Hospitalization Ordered Notes: Hospitalization Status: Observation fabrice Provider: Shelly Tsai fabrice Condition: Fair fabrice Problem: new fabrice Symptoms: have improved fabrice Bed/Room Type: Standard fabrice Location: Telemetry/MedSurg (Inpatient)(09/22/24 10:12) 6 Room Assignment: [facility](09/22/24 10:12) 6 Diagnosis - COPD/ Chronic obstructive pulmonary disease, unspecified fabrice - Syncope Near fabrice - Fall on same level, unspecified fabrice - Weakness fabrice - Vomiting fabrice - Dehydration fabrice - Tobacco abuse counseling fabrice - Tobacco use fabrice - Chest pain, unspecified fabrice Forms: - Medication Reconciliation Form fabrice - SBAR form [facility] - Leadership Thank You Letter [facility] NIH Stroke Scale - NIH Stroke Score Date: 09/21/2024 Time: 18:39 Total Score = 0 10. Dysarthria (speech clarity - read or repeat words) - 0(Normal) 11. Extinction and Inattention (visual/tactile/auditory/spatial/personal) - 0(No abnormality) 1a. Level of Consciousness (LOC) - 0(Alert) 1b. Level of Consciousness (LOC) (Month \\T\\ Age) - 0(Both) 1c. LOC Commands (Open \\T\\ Closes Eyes/Exposure Machine Operator) - 0(Both) 2. Best Gaze (Lateral Gaze Paresis) - 0(Normal) 3. Visual Field Loss - 0(No visual loss) 4. Facial Palsy - 0(Normal) 5a. Left Arm: Motor (10-second hold) - 0(No drift) 5b. Right Arm: Motor (10-second hold) - 0(No drift) 6a. Left Leg: Motor (5-second hold - always test supine) - 0(No drift) 6b. Right Leg: Motor (5-second hold - always test supine) - 0(No drift) 7. Limb Ataxia (finger/nose \\T\\ heel/rm - test with eyes open) - 0(Absent) 8. Sensory Loss (pinprick arms/legs/face) - 0(Normal) 9. Best Language: Aphasia (description/naming/reading) - 0(No aphasia) Initials: [facility] Signatures: Dispatcher [employer] EDMS Catherine Dewey Corey, MD MD cha Hall, Patricia RN RN ph Deepali Curry RN RN vc1 Gus Canela MD MD rt [place], Breana 6 Freida Paris RN RN al5 Maile Orellana RN cm10 Corrections: (The following items were deleted from the chart) 09/21 15:00 14:52 Head C Spine Cap Wo Con+CT.RAD.BRZ ordered. EDAZ EDAZ 09/22 01:44 09/21 18:44 Telemetry/MedSurg (observation) fabrice vc1 09/22 01:44 03 18:44 [facility] 09/22 10:12 01:44 [facility] ER HOLD [facility]6 10:12 01:44 ERHOLD- vc1 bc6
[2024-09-21] MEDS ORDERED: FAMOTIDINE 20 MG/2 ML VIAL IV ONE (20:31)
[2024-09-21] MEDS ORDERED: THIAMINE 200 MG/2 ML INJ ONE (20:31)
[2024-09-21] MEDS ORDERED: IPRATROPIUM BROM 0.5MG/2.5ML ONE (20:31)
[2024-09-21] MEDS ORDERED: ASPIRIN 81 MG CHEWABLE TABLET ONE (20:31)
[2024-09-21] MEDS ORDERED: LEVALBUTEROL 1.25 MG/3 ML NEB ONE (20:31)
[2024-09-21] MEDS ORDERED: FOLIC ACID 5 MG/ML VIAL ONE (20:32)
[2024-09-21] MEDS ORDERED: MULTIVITAMINS 10 ML VIAL (INJ) IV ONE (20:32)
[2024-09-21 20:40] LABS: PT Prothrombin Time 12.6 SECONDS (10.0-13.0); Protime INR 1.11
[2024-09-21] MEDS ORDERED: ACETAMINOPHEN 500 MG TAB PO PRN (20:44)
[2024-09-21] MEDS ORDERED: clonazePAM 0.5 MG TAB PO PRN (20:50)
[2024-09-21 23:57] VITALS: BMI 30.1
--- NOTE | 2024-09-22 00:30 | P.HP ---
Patient History Date of Service: 09/22/24 History of Present Illness: This is a 54-year-old female with a past medical history of acute on chronic combined systolic and diastolic heart failure, COPD, seizure disorder, history of substance abuse, CAD presenting with vomiting and syncope earlier this evening. She states she was in the bathroom and once she stood up she does not remember what happened. She remembers waking up on the bathroom floor. Associated symptoms include diarrhea. She does states she has a history of diverticulitis with several flares in the past. She took 2 nitroglycerin prior to her arrival. She uses a walker and a wheelchair to get around. She does not work and is in the process of obtaining disability. She smokes marijuana on and off. She denies hitting her head. Associated symptoms include chest pain rated 9 out of 10. Her friends were with her and called the ambulance. She smokes 3/4 pack/day. She drinks alcohol once or twice a week. She states she last used cocaine 4 to 5 months ago. Allergies levetiracetam [From [facility]] Allergy (Verified 09/20/23 03:53) Anaphylaxis Green tea Allergy (Mild, Uncoded 09/20/23 03:53) seizures Home Medications: Divalproex Sodium [Depakote] 500 mg PO BID 01/15/23 Fluticasone/Umeclidin/Vilanter [Trelegy Ellipta 100-62.5-25] 1 each IH DAILY 30 Days #30 aero 05/04/23 Furosemide [Lasix*] 40 mg PO DAILY tab 05/19/23 Nitroglycerin [Nitrostat*] 0.4 mg SL UD PRN tab 05/19/23 Ipratropium Neb [Atrovent*] 0.5 mg NEB [id number] #60 amp 09/22/23 Blood Sugar Diagnostic [Test Strips] 1 each MC DAILY #100 strip 09/29/23 Blood-Glucose Meter [Glucocard Shine Connex Meter] 1 each MC DAILY #1 ea 09/29/23 Lancets [Glucocom Lancets] 1 each MC BID #100 ea 09/29/23 Metformin HCl 500 mg PO DAILY #30 tab 09/29/23 carvediloL [Carvedilol] 12.5 mg PO BID #60 tab 09/29/23 Aspirin 81 mg PO DAILY 11/03/23 Atorvastatin Calcium 20 mg PO DAILY 11/03/23 Duloxetine [Cymbalta *] 20 mg PO DAILY 11/03/23 Lactulose 30 ml PO TID PRN 11/03/23 clonazePAM [Clonazepam] 0.5 tab PO Q8H PRN 11/13/23 Azithromycin Tab [Zithromax*] 250 mg PO DAILY 15 Days #15 tab 11/15/23 Prednisone [Sterapred Ds] 10 mg PO BID 15 Days #15 tab 11/15/23 Roflumilast [Daliresp*] 500 mcg PO DAILY 60 Days #30 tab 11/15/23 levoFLOXacin [Levaquin*] 750 mg PO DAILY 7 Days #7 tab 11/15/23 - Past Medical/Surgical History Diabetic: No -: COPD -: Hypertension/congestive heart failure -: migraines -: Depression with anxiety -: Pancreatitis -: Coronary artery disease-prior myocardial infarction -: Diverticulitis -: Seizure disorder -: Herniated back disc -: Diverticulitis -: Herniated back disc -: history of seizures -: 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 -: cholecystectomy -: 5 hand surgeries -: tonsilectomy Psychosocial/ Personal History: Lives at home with her boyfriend - Family History Father -: Hypertension, Other (see notes) Notes: No premature coronary disease Mother -: Heart disease, Hypertension, GI disease, Diabetes, Liver disease, Kidney disease - Social History Alcohol use: Yes CD- Drugs: Yes Caffeine use: No Review of Systems General: Weakness Eyes: Unremarkable ENT: Unremarkable Respiratory: Unremarkable Cardiovascular: Chest Pain Gastrointestinal: Nausea, Vomiting, Diarrhea Genitourinary: Unremarkable Musculoskeletal: Unremarkable Integumentary: Unremarkable Neurological: Incoordination Physical Examination - Vital Signs Blood Pressure: 116/79 Pulse: 81 Respirations: 17 Pulse Ox (%): 95 - Physical Exam General: Alert, In no apparent distress HEENT: Atraumatic, Normocephalic Neck: Supple Respiratory: Clear to auscultation bilaterally, Normal air movement Cardiovascular: No edema, Normal pulses Capillary refill: <2 Seconds Gastrointestinal: Normal bowel sounds Musculoskeletal: No clubbing Integumentary: No rashes Neurological: Normal speech - Studies Laboratory Data (last 24 hrs) 09/21/24 09/21/24 09/21/24 20:24 15:35 15:35 WBC 9.10 Hgb 14.3 Hct 42.4 Plt Count 476 H PT 12.6 H INR 1.11 Sodium 138 Potassium 3.7 BUN 6 L Creatinine 0.69 Glucose 103 Magnesium 2.3 Total Bilirubin 0.3 AST < 10 L ALT < 14 Alkaline Phosphatase 112 Lipase 63 Assessment and Plan - Plan Near syncope Vomiting and diarrhea Heart failure with reduced ejection fraction Hypertension COPD History of diverticulitis Seizure disorder Tobacco dependence History of illicit drug use Depression with anxiety CAD Head/cervical spine CT negative, placed on telemetry Obtain orthostatic blood pressure TSH and UA pending EKG within normal limits, normal troponin Was given bolus of normal saline and Zofran in the ED CT chest abdomen pelvis reviewed without any significant findings Continue Depakote Continue aspirin, Coreg and statin Continue ipratropium Continue Klonopin DVT prophylaxis with SCDs - Advance Directives Does patient have a Living Will: No Does patient have a Durable POA for Healthcare: No
[2024-09-22] MEDS ORDERED: METHYLPREDNISOLONE 125 MG INJ ONE (00:35)
[2024-09-22] MEDS: IPRATROPIUM BROM 0.5MG/2.5ML NEB SCH (00:52)
[2024-09-22] MEDS ORDERED: DIVALPROEX DR 250 MG TAB PO ONE (01:48)
[2024-09-22] MEDS ORDERED: carvediloL 6.25 MG TAB ONE (01:49)
[2024-09-22] MEDS: carvediloL 12.5 MG TAB PO SCH (01:55)
[2024-09-22] MEDS: DIVALPROEX DR 500MG TAB PO SCH (01:55)
[2024-09-22] MEDS ORDERED: ONDANSETRON 4 MG/2 ML VIAL ONE (05:10)
[2024-09-22] MEDS ORDERED: ACETAMINOPHEN 500 MG TAB ONE (05:11)
[2024-09-22] MEDS: ONDANSETRON 4 MG/2 ML VIAL IV PRN (05:18)
[2024-09-22 08:06] LABS: Anion Gap 9.1 mEq/L (5.0-15.0); Potassium 4.1 mEq/L (3.5-5.1); Thyroid Stimulating Hormone 0.609 uIU/mL (0.358-3.740)
[2024-09-22] MEDS ORDERED: IPRATROPIUM BROM 0.5MG/2.5ML ONE (08:18)
[2024-09-22] MEDS: (Fluticasone/Umeclidin/Vilanter [Trelegy Ellipta 100-62.5-25] Blst.W.Dev IH SCH (09:00)
[2024-09-22] MEDS: DULOXETINE 20 MG CAP PO SCH (09:00)
[2024-09-22] MEDS: ROFLUMILAST 500 MCG TABLET PO SCH (09:00)
[2024-09-22] MEDS: ATORVASTATIN 20 MG TAB PO SCH (09:00)
[2024-09-22] MEDS: ENOXAPARIN 40 MG/0.4 ML SQ SCH (09:00)
[2024-09-22] MEDS: ASPIRIN 81 MG CHEWABLE TABLET PO SCH (09:00)
[2024-09-22] MEDS ORDERED: ASPIRIN 81 MG CHEWABLE TABLET ONE (09:32)
[2024-09-22] MEDS ORDERED: ENOXAPARIN 40 MG/0.4 ML SQ ONE (09:35)
[2024-09-22] MEDS ORDERED: ATORVASTATIN 20 MG TAB ONE (09:35)
[2024-09-22 13:32] LABS: Specific Gravity 1.026 (1.005-1.030); Sqamous Epithelial <5 /HPF (None Seen); Transitional Epithelial <5 /HPF (None Seen); Urine Bacteria <20 /HPF (<20); Urine Bilirubin NEGATIVE (Negative); Urine Blood Negative (Negative); Urine Clarity Turbid (Clear); Urine Color Yellow (Yellow); Urine Culture Reflex Order NOT NEEDED; Urine Glucose NEGATIVE (Negative); Urine Ketones TRACE (Negative); Urine Microscopic Reflex YN ORDER UMIC; Urine Mucus 1+ /HPF (None Seen); Urine Nitrite NEGATIVE (Negative); Urine Protein TRACE (Negative); Urine Urobilinogen 1+ (Normal); Urine WBC <5 /HPF (<5); Urine pH 6.5 (5.0-7.0)
[2024-09-22] MEDS: FENTANYL CITR 100 MCG/2 ML IV PRN (14:13)
[2024-09-22] MEDS: HYDROCODONE/APAP 7.5/325 MG TAB PO PRN (19:36)
[2024-09-22] MEDS: IPRATROPIUM BROM 0.5MG/2.5ML ONE (20:02)
[2024-09-23] MEDS: IPRATROPIUM BROM 0.5MG/2.5ML ONE (00:53)
[2024-09-23 05:46] LABS: Anion Gap 10.8 mEq/L (5.0-15.0); Potassium 3.8 mEq/L (3.5-5.1)
[2024-09-23 08:57] VITALS: O2SAT 97
[2024-09-23 13:21] VITALS: BP 123/70; TEMP 98
--- NOTE | 2024-09-27 11:28 | EKG ---
Test Date: 2024-09-21 Test Time: 16:37:05 [employer]: PH MEASUREMENT RESULTS: Intervals: Rate: 100 ID: [id number] QRSD: 74 QT: 366 QTc: 472 [place]: P: 72 ID: [id number] QRS: 20 T: 58 INTERPRETIVE STATEMENTS: Normal sinus rhythm Right atrial enlargement Low voltage QRS Septal infarct, age undetermined Abnormal ECG Compared to ECG 09/09/2024 20:31:32 Sinus tachycardia no longer present Myocardial infarct finding still present Electronically Signed On 09-27-24 11:09:37 CDT by Christian Crocker
--- NOTE | 2024-10-01 01:41 | P.DS ---
Discharge Date: 09/23/24 Disposition: ROUTINE DISCHARGE Discharge Condition: GOOD Brief History of Present Illness: This is a 54-year-old female with a past medical history of acute on chronic combined systolic and diastolic heart failure, COPD, seizure disorder, history of substance abuse, CAD presenting with vomiting and syncope earlier this evening. She states she was in the bathroom and once she stood up she does not remember what happened. She remembers waking up on the bathroom floor. Associated symptoms include diarrhea. She does states she has a history of diverticulitis with several flares in the past. She took 2 nitroglycerin prior to her arrival. She uses a walker and a wheelchair to get around. She does not work and is in the process of obtaining disability. She smokes marijuana on and off. She denies hitting her head. Associated symptoms include chest pain rated 9 out of 10. Her friends were with her and called the ambulance. She smokes 3/4 pack/day. She drinks alcohol once or twice a week. She states she last used cocaine 4 to 5 months ago. Hospital Course: Patient is doing well. Patient denies any new complaints. Plan to discharge her to the homeless halfway in [place]. Will call in her medications at [facility]. Vital Signs/Physical Exam: Temp Pulse Resp BP Pulse Ox 98.0 F 68 16 123/70 96 09/23/24 12:00 09/23/24 12:00 09/23/24 12:00 09/23/24 12:00 09/23/24 12:00 General: Alert, In no apparent distress, Oriented x3 Laboratory Data at Discharge: WBC 9.10 thou/uL (4.3-10.9) 09/21/24 15:35 Hgb 14.3 g/dL (12.0-15.0) 09/21/24 15:35 Hct 42.4 % (36.0-45.0) 09/21/24 15:35 Plt Count 476 thou/uL (152-406) H 09/21/24 15:35 PT 12.6 SECONDS (10.0-13.0) H 09/21/24 20:24 INR 1.11 09/21/24 20:24 Sodium 140 mEq/L (136-145) 09/23/24 04:43 Potassium 3.8 mEq/L (3.5-5.1) 09/23/24 04:43 BUN 12 mg/dL (7-18) 09/23/24 04:43 Creatinine 0.70 mg/dL (0.55-1.02) 09/23/24 04:43 Glucose 87 mg/dL (74-106) 09/23/24 04:43 Magnesium 2.3 mg/dL (1.6-2.4) 09/21/24 15:35 Total Bilirubin 0.3 mg/dL (0.2-1.0) 09/21/24 15:35 AST < 10 U/L (15-37) L 09/21/24 15:35 ALT < 14 U/L (13-56) 09/21/24 15:35 Alkaline Phosphatase 112 U/L (45-117) 09/21/24 15:35 Lipase 63 U/L (13-75) 09/21/24 15:35 Home Medications: Divalproex Sodium [Depakote] 500 mg PO BID 01/15/23 Fluticasone/Umeclidin/Vilanter [Trelegy Ellipta 100-62.5-25] 1 each DAILY 30 Days #30 aero 05/04/23 Furosemide [Lasix*] 40 mg PO DAILY tab 05/19/23 Nitroglycerin [Nitrostat*] 0.4 mg SL UD PRN tab 05/19/23 Ipratropium Neb [Atrovent*] 0.5 mg NEB [id number] #60 amp 09/22/23 Blood Sugar Diagnostic [Test Strips] 1 each MC DAILY #100 strip 09/29/23 Blood-Glucose Meter [Glucocard Shine Connex Meter] 1 each MC DAILY #1 ea 09/29/23 Lancets [Glucocom Lancets] 1 each BID #100 ea 09/29/23 Metformin HCl 500 mg PO DAILY #30 tab 09/29/23 carvediloL [Carvedilol] 12.5 mg PO BID #60 tab 09/29/23 Aspirin 81 mg PO DAILY 11/03/23 Atorvastatin Calcium 20 mg PO DAILY 11/03/23 Duloxetine [Cymbalta *] 20 mg PO DAILY 11/03/23 Lactulose 30 ml PO TID PRN 11/03/23 clonazePAM [Clonazepam] 0.5 tab PO Q8H PRN 11/13/23 Roflumilast [Daliresp*] 500 mcg PO DAILY 60 Days #30 tab 11/15/23 Hydrocodone 7.5/APAP 325 [[place] 7.5/325 mg*] 1 tab PO Q6H PRN #30 tab 09/23/24 Hydrocodone 7.5/APAP 325 [[place] 7.5/325 mg] 1 tab PO Q6H PRN #30 tab 09/26/24 Hydrocodone 7.5/APAP 325 [[place] 7.5/325 mg] 1 tab PO Q6H PRN #30 tab 09/26/24 Hydrocodone 7.5/APAP 325 [[place] 7.5/325 mg] 1 tab PO Q6H PRN #30 tab 09/26/24 New Medications: Hydrocodone 7.5/APAP 325 [[place] 7.5/325 mg*] 1 tab PO Q6H PRN #30 tab PRN Reason: Pain Scale 5-7 (Moderate) Hydrocodone 7.5/APAP 325 [[place] 7.5/325 mg] 1 tab PO Q6H PRN #30 tab PRN Reason: Pain Hydrocodone 7.5/APAP 325 [[place] 7.5/325 mg] 1 tab PO Q6H PRN #30 tab PRN Reason: Pain Hydrocodone 7.5/APAP 325 [[place] 7.5/325 mg] 1 tab PO Q6H PRN #30 tab PRN Reason: Pain Physician Discharge Instructions: PROBLEM: (list out Acute Problems for the Current visit) GOAL: Clear understanding of disease process INSTRUCTIONS: Diet: AHA Activity: Fall precautions -DC IV and DC home -Follow-up with PCP in 1 to 2 weeks -Follow-up with Cardiology in 1 to 2 weeks -Please call Dr. Fry at [phone] if any questions regarding hospital stay -Please call nursing station at [phone] if any nursing or medication questions -Return to the emergency room if symptoms worsen Diet: AHA Activity: Fall precautions Followup: NONE,NONE [Primary Care Provider] - Time spent managing pt's care (in minutes): 35
== END 2024-09-23 14:27 | disposition home or self-care (01) | DRG 291 ==
LOC: ER 14:26 → ERHOLD 20:25 → 2ND 09-22 10:30
PROVIDERS: ADMIT Family Medicine; ATTEND Hospitalist
DX: I11.0 Hypertensive heart disease with heart failure (principal); I50.43 Acute on chronic combined systolic (congestive) and diastolic (congestive) heart failure; F17.200 Nicotine dependence, unspecified, uncomplicated; E86.0 Dehydration; F41.8 Other specified anxiety disorders; F31.9 Bipolar disorder, unspecified; Z85.41 Personal history of malignant neoplasm of cervix uteri; G89.4 Chronic pain syndrome; I25.2 Old myocardial infarction; Z90.49 Acquired absence of other specified parts of digestive tract; I25.10 Atherosclerotic heart disease of native coronary artery without angina pectoris
CPT/HCPCS: 36415; 70450; 71045; 71250; 72125; 74176; 80048; 80076; 81001; 82947; 83690; 83735; 83880; 84443; 84484; 85025; 85610; 93005; 94640; 94760; 96361; 96365; 96366; 96375; 99285; J1650; J2405; J2919; J3010; J3411; J7030; J7614; J7644

== ENCOUNTER 2024-10-04 05:04 | Emergency (ER) | payer OTHER ==
[2024-10-04] MEDS ORDERED: DIPHENHYDRAMINE 50 MG/ML VIAL ONE (05:32)
[2024-10-04] MEDS ORDERED: NA CHLORIDE 0.9% 1,000 ML ONE (05:32)
--- OUTSIDE RECORDS SUMMARY | 2024-10-04 05:33 | XMS REPORT | Continuity of Care Document ---
Author Name Unknown Address [address] [facility] [address] [place] [address] [facility] Address [address] [facility]. [address] [place] [address] Care Team Providers Care Jig Builder Name Role Phone Pcp, Pcp Primary Care Physician Unavailab PANKAJ Cook Attending Clinician Un available AYDEE GO Attending Clinician Unavailable MARIANELA COLLAZO Attending Clinician UnavailADAM Moreno Attending Clinician Unavailable THOMAS LOZOYA Attending Clinician Nina MARIAH Quiroga Attending Clinician Unavailable Doctor Unassigned, [place] Attending Clinician U navailable WENDI MONTAÑO Attending Clinician Unavailable Brooklynn Paige MD Attending Clinician [phone] Wendi Montaño MD Attending Clinician [phone] System, Provider Not In Attending Clinician Unav ailable GUSTAVO DELANEY Attending Clinician Unavailable CHRISSY MOHR Attending Clinician Unavailable CHRISSY MOHR Attending Clinician Unavailable Chrissy Mohr DO Attending Clinician [phone] MD GERRY Attending Clinician Unavailab le Doctor Unassigned, [place] Attending Clinician U navailable MORALES BALL Attending Clinician Unavailab RADHA Vargas Attending Clinician Unavailable RADHA WYATT Attending Clinician Unavailable Gerardo CAMPOS, Veronique Olivia Attending Clinician [phone] DARRICK FRY Attending Clinician Unavailabl itz Doyle HAND BOOKED FOLDER AND STITCHER, Olena Attending Clinician [phone] Alfonso Lopez Attending Clinician [phone] Lisandra ELIZONDO, Darrick Campoverde Attending Clinician [phone] Jodi Berg RN Attending Clinician Unavail able TAL BENAVIDEZ Attending Clinician Unavailable Mj Bryan DO Attending Clinician [phone] Tal Benavidez MD Attending Clinician [phone] MOJGAN SUERO Attending Clinician Unav Connor Ortiz MD Attending Clinician + [phone] Mojgan Suero MD Attending Clinician + Madeline Mckinley RN Attending Clinician Unavailab MADELINE Edwards Attending Clinician Unavailable MADELINE PIERRE Attending Clinician Unavailable Megan Rondon MD Attending Clinician [phone] Cr Fry MD Attending Clinician +[phone] Ivis Mcdermott MD Attending Clinician +[phone] Ryder Vaca MD Attending Clinici an AARON LEDESMA Attending Clinician Unavailable Tracy ELIZONDO, Cris Attending Clinician [phone] EFRA BABCOCK Attending Clinician Un available MYLA LIEBERMAN Attending Clinician Unavailable JUANY GREEN Attending Clinician Unavailable PROVIDER, CAMPAIGNS Attending Clinician Unavaila SIDDHARTH Kaye Attending Clinician UnavailMARGOT Dexter Attending Clinician Unavailable SARAI JULES Attending Clinician Unavaila YONATAN Juarez Attending Clinician Unamario ilEDWARD Arreola Attending Clinician Unavailable Nir ELIZONDO, [place] Olivia Attending Clinician Unavailab monroe Obregon MD, Pankaj Attending Clinician [phone] Edward Fry DO Attending Clinician [phone] Edward Farrell MD Attending Clinician +[phone] DEMETRIUS TOBAR Attending Clinician Unavailab QUIN Armenta Attending Clinician Unavail able Kael BELTRAN, Quin Stewart Attending Clinician [phone] MJ BRYAN Attending Clinician Unavailable Provider, Not In System Attending Clinician Unav arianna Collazo MD, Marianela Hamilton Attending Clinician [phone] Aydee Go MD Attending Clinician +[phone] Dallas Gomez Attending Clinician [phone] Adam Garcia MD Attending Clinician +[phone] Mercedez ELIZONDO, Harry Attending Clinician +[phone] Rocael ELIZONDO, Antwon Attending Clinician Unavailab Yue Booth MD Attending Clinician [phone] Connie Davey MD Attending Clinician +[phone] Mariah Aldridge MD Attending Clinician [phone] Valerio ELIZONDO, Thomas Reddy Attending Clinician + [phone] CONNIE DAVEY Attending Clinician UnavailAlfonso Oh Attending Clinician Unavailable RITCHIE MOTTA Attending Clinician Unavailable Ritchie Motta MD Attending Clinician +[phone] Rk CAMPOS, Margot Stoner Attending Clinician +[phone] PARRISH WHEATLEY Attending Clinician Unavaila yaya Mendoza MD, Halima Hummel Attending Clinician [phone] Ning Geller MD Attending Clinician [phone] Roxi ELIZONDO, Parrish Reyez Attending Clinici an DAMI LOWRY Attending Clinician Unavailable Essence ELIZONDO, Dami Attending Clinician [phone] Corey DUMONT, Maria Teresa Attending Clinician + [phone] CHANTEL BOJORQUEZ Attending Clinician CHANTEL Kelly Attending Clinician Jack Mcfarlane MD, Brandyn Otoole Attending Clinician [phone] SELINA MARTINES Attending Clinician Unavailable Sapna Vargas DO Attending Clinician + [phone] Tyrel ELIZONDO, Glory Katz Attending Clinician + Selina Martines MD Attending Clinician [phone] Vaccine, [place] Pedi Attending Clinician U chelsi Pak MD, Jose Attending Clinician [phone] JOES PAK Attending Clinician Unavailable WILLIAMS ALLISON Attending Clinician Unavaila Williams Lakhani F Attending Clinician [phone] Miky Nava RN Attending Clinician Unavailab monroe SUAREZ, Fabrice Attending Clinician +[phone] Ebpenelope STEAM FITTER HELPER, Lydia Attending Clinician [phone] Unknown, Attending Attending Clinician Unavailab le UNKNOWN, ATTENDING Attending Clinician Unavailab Estefania Berg Attending Clinician [phone] Yehuda Arcos MD Attending Clinician [phone] PANKAJ OBREGON Admitting Clinician Un available MARIANELA COLLAZO Admitting Clinician Unavailab ADAM Cabrera Admitting Clinician Unavailable ZINDANI, MARIAH Admitting Clinician Unavailable CHRISSY MOHR Admitting Clinician Unavailable RADHA WYATT Admitting Clinician Unavailable DARRICK FRY Admitting Clinician UnavailDarrick Geiger MD Admitting Clinician TAL BENAVIDEZ Admitting Clinician Unavailable Tal Benavidez MD Admitting Clinician MOJGAN SUERO Admitting Clinician Unav ailable Mojgan Suero MD Admitting Clinician + CR FRY Admitting Clinician Unavailable CONNIE DAVEY Admitting Clinician UnavailAlfonso Oh Admitting Clinician Unavailable RITCHIE MOTTA Admitting Clinician Unavailable NING GELLER Admitting Clinician Unavaila DAMI Mariscal Admitting Clinician Unavailable Dami Lowry MD Admitting Clinician [phone] BRANDYN MCFARLANE Admitting Clinician Unavailable Brandyn Mcfarlane MD Admitting Clinician [phone] GLORY ESTEVES Admitting Clinician Unav ailable WILLIAMS ALLISON Admitting Clinician Unavaila ble Payers Payer Name Policy Type Policy Number Effective Date Expirati on Date Source [facility] CYNTHIA EXCH [id number] 2023 00:00:00 ISA RICARDO [id number] 2023 00:00:00 [facility] SESAR SEVILLA COPAY FOCUS 9 [id number] 2023 00:00:00 MEDICAID PENDING PENDING 2022 00:00:00 Problems Condition Name Condition Details Condition Category Status Onset Date Resolution Date Last Treatment Date Treating Clinician Comments Source Seizure Seizure Disease Active 08-10 00:00: 00 [facility] Subdural hemorrhage Subdural hemorrhage Disease Active 08-10 00:00: 00 [facility] Epic 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 systolic and diastolic congestive heart failure Disease Active 01-09 00:00: 00 [facility] Hypotensio n Hypotensio n Disease Active -22 00:00: [address] [facility] LV (left ventricula r) mural thrombus LV (left ventricula r) mural thrombus Disease Active 12-14 00:00: 00 [facility] Pulmonary hypertensi on Pulmonary hypertensi on Disease Active 12-14 00:00: 00 [facility] Shortness of breath Shortness of breath Disease Active 12-13 00:00: 00 [facility] Other chest pain Other chest pain Disease Active 5-15 00:00: 00 [facility] Depression Depression Disease Active 09-29 00:00: 00 [...] 09-11 00:00: 00 Cynthia Santoyo Externa raul Bilateral leg weakness Bilateral leg weakness Disease Active 2022-07 00:00: 00 [facility] Bilateral leg weakness Bilateral leg weakness Disease Active 2022-07 00:00: 00 [facility] Pneumonia Pneumonia Disease Active 2022-07 00:00: 00 [facility] Cavitary lesion of lung Cavitary lesion of lung Disease Active 2022-07 00:00: 00 [facility] Cervical myelopathy Cervical myelopathy Disease Recurre nce 2022-07 00:00: 00 [facility] Cervical disc disorder with myelopathy , high cervical region Cervical disc disorder with myelopathy , high cervical region Disease Active 2022-07 00:00: 00 [facility] Cord compressio n Cord compressio n Disease Recurre nce - 00:00: 00 [facility] Cauda equina compressio n Cauda equina compressio n Disease Active 03-30 00:00: 00 [facility] Seizure Seizure Disease Recurre nce - 00:00: 00 [facility] Cardiomyop athy Cardiomyop athy Disease Active 08-01 00:00: 00 [facility] NSVT (nonsustai keisha ventricula r tachycardi a) NSVT (nonsustai keisha ventricula r tachycardi a) Disease Active 08-01 00:00: 00 [facility] Elevated brain natriureti c peptide (BNP) level Elevated brain natriureti c peptide (BNP) level Disease Active 07-31 00:00: 00 [facility] Chest pain, unspecifie d type Chest pain, unspecifie d type Disease Active 07-31 00:00: 00 [facility] Elevated brain natriureti c peptide (BNP) level Elevated brain natriureti c peptide (BNP) level Disease Active 07-31 00:00: 00 [facility] Coronary artery disease involving n[place] coronary artery of [place] heart without angina pectoris Coronary artery disease involving [place] coronary artery of [place] heart without angina pectoris Disease Active 07-31 00:00: 00 [facility] Snores Snores Disease Active 07-31 00:00: 00 [facility] Cigarette smoker Cigarette smoker Disease Active 07-31 00:00: 00 [facility] Primary hypertensi on Primary hypertensi on Disease Active 07-31 00:00: 00 [facility] Other hyperlipid emia Other hyperlipid emia Disease Active 07-31 00:00: 00 [facility] Coronary artery disease involving [place] coronary artery of [place] heart without angina pectoris Coronary artery disease involving [place] coronary artery of [place] heart without angina pectoris Disease Active 07-31 00:00: 00 [facility] Chronic bilateral low back pain with bilateral sciatica Chronic bilateral low back pain with bilateral sciatica Disease Active 2021-07 0-17 00:00: 00 [facility] 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 Disease Active 04-15 00:00: 00 [facility] Neuroforam inal stenosis of cervical spine Neuroforam inal stenosis of cervical spine Disease Active 04-15 00:00: 00 [facility] Stroke-lik e symptoms Stroke-lik e symptoms Disease Active 9 00:00: 00 [facility] Bipolar disorder, in partial remission, most recent episode manic Bipolar disorder, in partial remission, most recent episode manic Disease Active 3-11 00:00: 00 [facility] Neuroforam inal stenosis of lumbar spine Neuroforam inal stenosis of lumbar spine Disease Active 09-27 00:00: 00 [facility] Bilateral acute otitis media, recurrence not specified, unspecifie d otitis media type Bilateral acute otitis media, recurrence not specified, unspecifie d otitis media type Disease Active 09-27 00:00: 00 [facility] Lumbar spinal stenosis Lumbar spinal stenosis Disease Active 09-27 00:00: 00 [facility] Right-side d low back pain with sciatica, sciatica laterality unspecifie d Right-side d low back pain with sciatica, sciatica laterality unspecifie d Disease Active 09-27 00:00: 00 [facility] Generalize d anxiety disorder Generalize d anxiety disorder Disease Active 09-27 00:00: 00 [facility] Agoraphobi a Agoraphobi a Disease Active 09-27 00:00: 00 [facility] Bipolar disorder, in partial remission, most recent episode manic Bipolar disorder, in partial remission, most recent episode manic Disease Active 09-27 00:00: 00 [facility] Obsessive compulsive disorder Obsessive compulsive disorder Disease Active 09-27 00:00: 00 [facility] Breast mass, left Breast mass, left Disease Active 09-17 00:00: 00 [facility] Anxiety Anxiety Disease Active 09-17 00:00: 00 [facility] Lower back pain Lower back pain Disease Active 09-17 00:00: 00 [facility] High blood pressure High blood pressure Disease Active 09-17 00:00: 00 [facility] COPD (chronic obstructiv e pulmonary disease) COPD (chronic obstructiv e pulmonary disease) Disease Active 09-17 00:00: 00 [facility] Obesity Obesity Disease Active 09-17 00:00: 00 [facility] Breast pain Breast pain Disease Resolve d 09-17 00:00: 00 2015-09-18 00:00:2015-09-18 13:19:09 [facility] Allergies, Adverse Reactions, Alerts Allergy Name Allergy Type Status Severity Reaction(s) Onset Date Inactive Date Treating Clinician Comments Source Levetira cetam Propensi ty to adverse reaction s Active - 00:00: 00 [facility] Fluoxeti ne Propensi ty to adverse reaction s Active - 00:00: 00 [facility] Green Tea Drug Allergy Active Other (See Comments) 03-29 00:00: 00 Seizure like activity [facility] Levetira cetam Drug Allergy Active Nausea And Vomiting 03-29 00:00: 00 Intensifi es seizure [facility] FLUOXETI NE Allergy Active 03-29 00:00: 00 [facility] GREEN TEA Allergy Active High Other - 00:00: 00 [facility] LEVETIRA CETAM Allergy Active High N\\T\\V 03-29 00:00: 00 [facility] Green Tea Propensi ty to adverse reaction s Active 03-29 00:00: 00 Seizure like activity [facility] Levetira cetam Propensi ty to adverse reaction s Active Nausea And Vomiting 03-29 00:00: 00 Intensifi es seizure [facility] LEVETIRA CETAM DRUG INGREDI Active Other-Cmnt 11-17 00:00: 00 [facility] Levetira cetam Propensi ty to adverse reaction s Active Other - See comments 11-17 00:00: 00 Makes seizures worse [facility] Levetira cetam Propensi ty to adverse reaction s Active Other 11-17 00:00: 00 Intensifi es seizure Makes seizures worse Makes seizures worse Intensifi es seizure Cynthia Seybold - Externa l FLUOXETI NE Allergy Active Med Rash 0 1-14 00:00: 00 [facility] Fluoxeti ne Propensi ty to adverse reaction s Active Rash 0 -14 00:00: 00 [facility] Green Tea Propensi ty to adverse reaction s Active 08-02 00:00: 00 [facility] GREEN TEA Allergy Active 08-02 00:00: 00 [facility] Fluoxeti ne Propensi ty to adverse reaction s Active Unknown - See comments 03-25 00:00: [address] [facility] FLUOXETI NE DRUG INGREDI Active Unknown-Cmnt 03-25 00:00: [address] [facility] Diclofen ac Propensi ty to adverse reaction s Active Anxiety 11-20 00:00: 00 Cynthia Seybold - Externa l DICLOFEN AC DRUG INGREDI Active HYPERTENSION 11-20 00:00: 00 [facility] Green Tea Propensi ty to adverse reaction s Active Anxiety 08-10 00:00: 00 Seizure like activity Seizures Seizures Seizure like activity Cynthia Bedoyaold - Externa l GREEN TEA DRUG INGREDI Active Med Other-Cmnt 08-10 00:00: [address] [facility] Green Tea Propensi ty to adverse reaction s to drug Active Other - See comments 08-10 00:00: [address] [facility] FLUOXETI NE HCL DRUG INGREDI Active Hives 03-19 00:00: 00 [facility] Fluoxeti ne Hcl Propensi ty to adverse reaction s Active Hives 03-19 00:00: 00 [facility] Family History Family Member Diagnosis Comments Start Date Stop Date Sourc e Natural mother Alcohol abuse C [facility] Natural mother Cancer [facility] Natural mother Diabetes [facility] Natural mother Heart disease C [facility] Natural mother Hyperlipidemia [facility] Natural mother Kidney disease [facility] Natural mother Stroke [facility] Natural mother Alcohol abuse C [facility] Natural mother Stroke [facility] Paternal uncle Diabetes [facility] Social History Social Habit Start Date Stop Date Quantity Comments Source Gender identity Jeffrey margarita Bolaños Epic History of tobacco use Cigarette Smoker Cynthia Bedoya old - External History SDOH Alcohol Frequency [facility] History SDOH Alcohol Std Drinks [facility] History SDOH Alcohol Binge [facility] History SDOH Housing Homeless Last Year [facility] ASSERTION Not [facility] Sexual orientation C [facility] History SDOH Social Connections Get Together [facility] History SDOH Social Connections Jehovah'S Witness [facility] History SDOH Social Connections Membership [facility] History SDCT Social Connections Meetings [facility] Tobacco use and exposure 2023-09-30 00:00:00 2023-09-30 [...] of Social function 2023-08-03 00:00:00 2023-08-03 00:00:00 [facility] Alcoholic beverage intake 2023-06-02 00:00:00 2023-06-02 00:00:00 Current drinker of alcohol (finding) [facility] Exposure to SARS-CoV-2 (event) 2023-05-18 00:00:00 2023-05-28 07:28:00 Not sure [facility] History SDOH Housing Unable to Pay - In the last 12 months, was there a time when you were not able to pay the mortgage or rent on time? 2023-05-26 00:00:00 2023-05-26 00:00:00 Yes [facility] Cigarette pack-years 2023-05-26 00:00:00 2023-05-26 00:00:00 [facility] Cigarettes smoked current (pack per day) - Reported 2023-05-26 00:00:00 2023-05-26 00:00:00 [facility] History SDOH Housing Places Lived 2023-03-30 00:00:00 2023-03-30 00:00:00 1 [facility] Alcohol Comment 2023-03-29 00:00:00 2023-03-29 00:00:00 2x a week [facility] History SDOH Social Connections Phone 2022-08-01 00:00:00 2022-08-01 00:00:00 5 [facility] History SDOH Social Connections Living 2022-08-01 00:00:00 2022-08-01 00:00:00 5 [facility] History SDOH Physical Activity DPW 2022-08-01 00:00:00 2022-08-01 00:00:00 0 [facility] History SDOH Physical Activity MPS 2022-08-01 00:00:00 2022-08-01 00:00:00 0 [facility] History SDOH Financial 2022-08-01 00:00:00 2022-08-01 00:00:00 3 [facility] History SDOH Food Worry 2022-08-01 00:00:00 2022-08-01 00:00:00 1 [facility] History SDOH Food Scarcity 2022-08-01 00:00:00 2022-08-01 00:00:00 1 [facility] History SDOH Transport Med 2022-08-01 00:00:00 2022-08-01 00:00:00 2 [facility] History SDOH Transport Non-Med 2022-08-01 00:00:00 2022-08-01 00:00:00 2 [facility] Sex assigned at 1970 00:00:00 1970 00:00:00 [facility] Smoking Status Start Date Stop Date Source Tobacco smoking consumption unknown [facility] Smokes tobacco daily 2023-09-30 00:00:00 Cynthia Garcia - External Never smoked tobacco Cynthia Garcia - External Ex-smoker 2023-05-26 00:00:00 2023-05-26 00:00:00 [facility] Medications Ordered Medication Name Filled Medication Name Start Date Stop Date Current Medication? Ordering Clinician Indication Dosage Frequency Signature (SIG) Comments Components Source gabapentin (Neurontin) capsule 300 mg gabapentin (Neurontin) capsule 300 mg 08-10 14:55: 00 Yes 300mg 300 mg, Oral, Once, On Thu08/10/24 at 1455, For 1 dose [facility] Epic methocarbam ol (Robaxin) tablet 1,500 mg methocarbam [...] 4000mg/day (4gm/day) [facility] HYDROcodone -acetaminop hen ([place]) 5-325 MG per tablet 1 tablet HYDROcodone -acetaminop hen ([place]) 5-325 MG per tablet 1 tablet 08-10 [...] 00:00: 00 09-09 23:59 :00 No 300mg [id number] 3D Take 1 capsule by mouth in [...] unable to tolerate oral medication s? Yes [facility] valproate (DEPACON) 500 mg in D5W piggyback 04-03 03:30: 00 04-03 04:49 :00 No 500mg 500 mg, IV Piggyback, ONCE NOW, 1 dose, On 04/02/24 at 2245, Administer over 30 Minutes, 100 mL [facility] divalproex (DEPAKOTE) delayed release tablet 250 mg 04-03 03:15: 00 04-03 04:07 :00 No 250mg 250 mg, Oral, ONCE NOW, 1 dose, On 04/02/24 at 2215, MICHAEL [facility] ondansetron (ZOFRAN (PF)) injection 4 mg 04-03 02:30: 00 04-03 04:58 :00 No 4mg 4 mg, Slow IV Push, ONCE, 1 dose, On 04/02/24 at 2130, MICHAEL [facility] morpHINE (4 mg/mL) injection 4 mg 04-03 02:30: 00 04-03 04:58 :00 No 4mg 4 mg, Slow IV Push, ONCE, 1 dose, On 04/02/24 at 2130, STAT [facility] divalproex ER 500 mg 24 hr tablet 04-03 00:00: 00 Yes [id number] 1000mg Take 2 tablets by mouth every 12 (twelve) hours. [facility] KCL 20 mEq tablet 9-15 00:00: 00 04-09 04:59 :00 No [id number] 40meq Take 2 tablets by mouth in the morning for 5 days. [facility] LORazepam (ATIVAN) tablet 1 mg 01-12 04:00: 00 01-12 03:56 :00 No 1mg 1 mg, Oral, ONCE, 1 dose, On Thu01/12/24 at 2300, MICHAEL [facility] ondansetron (ZOFRAN (PF)) injection 8 mg 01-12 04:00: 00 01-12 03:55 :00 No 8mg 8 mg, Slow IV Push, ONCE, 1 dose, On Thu01/12/24 at 2300, MICHAEL [facility] morpHINE (4 mg/mL) injection 6 mg 01-12 04:00: 00 01-12 03:55 :00 No 6mg 6 mg, Slow IV Push, ONCE, 1 dose, On Thu01/12/24 at 2300, STAT [facility] mirtazapine (REMERON) tablet 15 mg 01-10 02:00: 00 Yes 15mg [facility] atorvastati n (LIPITOR) tablet 40 mg 01-10 02:00: 00 Yes 40mg [facility] MULTIVITAMI N ORAL 01-09 15:56: 06 Yes 1{tbl} Take 1 Tab by mouth daily. [facility] omega-3 fatty acids-vitam in E (FISH OIL) 1,000 mg capsule 01-09 15:56: 06 Yes 1g Take 1 g by mouth daily. [facility] loratadine (CLARITIN LIQUI-GEL) 10 mg capsule 01-09 15:56: 06 Yes Take by mouth daily. [facility] metoprolol succinate XL 50 mg 24 hr tablet 01-09 15:56: 06 01-09 00:00 :00 No 50mg Take 1 tablet by mouth in the morning. [facility] KCL (KLOR-CON M20) tablet 40 mEq 01-09 15:45: 00 01-09 17:43 :00 No 40meq 40 mEq, Oral, ONCE, 1 dose, On 01/10/24 at 1045, Routine [facility] ondansetron 4 mg tablet 01-09 14:46: 23 01-09 00:00 :00 No 4mg Take 1 tablet by mouth every 8 (eight) hours as needed for Nausea and Vomiting (N/V). [facility] perflutren protein-A microsphr (OPTISON) injection 3 mL 01-09 14:15: 00 01-09 14:15 :00 No [id number] 3mL 3 mL, IV Push, ONCE, 1 dose, On 01/10/24 at 0915, Routine [facility] tamsulosin (FLOMAX) capsule 0.4 mg 01-09 14:00: 00 Yes .4mg 0.4 mg, Oral, DAILY, First dose on 01/10/24 at 0900, Until Discontinu ed, [facility]ine [facility] [facility] metoprolol succinate XL (TOPROL XL) tablet 12.5 mg 01-09 14:00: 00 Yes 12.5mg [facility] DULoxetine (CYMBALTA) capsule 30 mg 01-09 14:00: 00 Yes 30mg 30 mg, Oral, DAILY, First dose on 01/10/24 at 0900, Until Discontinu ed, Routine [facility] digoxin (LANOXIN) tablet 125 mcg 01-09 14:00: 00 Yes 125ug 125 mcg, Oral, DAILY, First dose on 01/10/24 at 0900, Until Discontinu ed [facility] aspirin chewable tablet 81 mg 01-09 14:00: 00 Yes 81mg 81 mg, Oral, DAILY, First dose on 01/10/24 at 0900, Until Discontinu ed, Routine [facility] nicotine (NICODERM) 21 mg/24 hr patch 1 Patch 01-09 13:45: 00 Yes 1{patch } 1 Patch, Topical, Administer over 24 Hours, Q24H, First dose on 01/10/24 at 0845, Until Discontinu ed, Routine [facility] gabapentin (NEURONTIN) capsule 100 mg 01-09 13:00: 00 Yes 100mg 100 mg, Oral, TID, First dose on Thu01/10/24 at 0800, Until Discontinu ed, Routine [facility] divalproex (DEPAKOTE) delayed release tablet 1,000 mg 01-09 13:00: 00 Yes 1000mg 1,000 mg, Oral, Q12H, First dose on 01/10/24 at 0800, Until Discontinu ed, Routine [facility] cyclobenzap rine (FLEXERIL) tablet 5 mg 01-09 13:00: 00 Yes 5mg 5 mg, Oral, TID, First dose on Thu01/10/24 at 0800, Until Discontinu ed, Routine [facility] apixaban (ELIQUIS) tablet 5 mg 01-09 13:00: 00 02-27 12:59 :00 No [id number] 5mg 5 mg, Oral, BID, 98 doses, First dose on Thu01/10/24 at 0800, Last dose on 02/27/24 at 2000, Routine, Indication s: DVT/PE [facility] FENTanyl PF (SUBLIMAZE (PF)) injection 25 mcg 01-09 03:08: 20 01-10 03:07 :20 No 25ug 25 mcg, Slow IV Push, Q4HPRN, Starting on 01/09/24 at 2208, Until 01/10/24 at 2207, Routine, Pain (scale 7-10), Pain (scale 4-6) [facility] acetaminoph en (TYLENOL) tablet 650 mg 01-09 03:08: 07 Yes 650mg 650 mg, Oral, Q6HPRN, Starting on 01/09/24 at 2208, Until Discontinu ed, Routine, Pain (scale 1-3) [facility] ondansetron (ZOFRAN (PF)) injection 4 mg 01-09 02:45: 00 01-09 01:53 :00 No 4mg 4 mg, Slow IV Push, ONCE, 1 dose, On 01/09/24 at 2145, MICHAEL [facility] ipratropium -albuteroL (DUONEB) 0.5 mg-3 mg(2.5 mg base)/3 mL nebulizer solution 3 mL 01-09 02:45: 00 01-09 02:01 :00 No 3mL 3 mL, Inhalation , ONCE, 1 dose, On 01/09/24 at 2145, Routine [facility] cefTRIAXone (ROCEPHIN) 1,000 mg in NaCl 0.9% (NS) 100 mL MINI-BAG 01-09 02:30: 00 01-09 03:10 :00 No 1000mg 1,000 mg, IV Piggyback, ONCE, 1 dose, On 01/09/24 at 2130, Administer over 30 Minutes, 100 mL, Reason for Anti-Infec tive: Documented Infection, Documented Infection Site: Respirator y, Duration of Therapy: Once (ED) [facility] famotidine (PEPCID (PF)) injection 20 mg 01-09 01:45: 00 01-09 01:53 :00 No 20mg 20 mg, Slow IV Push, ONCE, 1 dose, On 01/09/24 at 2045, MICHAEL [facility] iopamidol (ISOVUE 370-500 mL) injection 90 mL 01-09 00:45: 00 01-09 00:45 :00 No [id number] 90mL 90 mL, Intravenou s, ONCE, 1 dose, On 01/09/24 at 1945, Routine [facility] atorvastati n 40 mg tablet 01-09 00:00: 00 Yes [id number] 20mg Take 0.5 tablets by mouth at bedtime. [facility] furosemide 40 mg tablet 01-09 00:00: 00 Yes [id number] 40mg Take 1 tablet by mouth every morning and evening. [facility] ipratropium -albuteroL 0.5 mg-3 mg(2.5 mg base)/3 mL nebulizer solution 01-09 00:00: 00 Yes [id number] 3mL Inhale 3 mL every 6 (six) hours as needed for Wheezing or Shortness of Breath. [facility] predniSONE 20 mg tablet 01-09 00:00: 00 01-15 04:59 :00 No [id number] 40mg Take 2 tablets by mouth in the morning for 5 days. [facility] FENTanyl PF (SUBLIMAZE (PF)) injection 50 mcg 01-08 22:45: 00 01-08 23:10 :00 No 50ug 50 mcg, Slow IV Push, ONCE, 1 dose, On 01/09/24 at 1745, STAT [facility] ondansetron (ZOFRAN (PF)) injection 4 mg 01-08 21:30: 00 01-08 21:47 :00 No 4mg 4 mg, Slow IV Push, ONCE, 1 dose, On 01/09/24 at 1630, MICHAEL [facility] aspirin tablet 325 mg 01-08 21:15: 00 01-08 21:47 :00 No 325mg 325 mg, Oral, ONCE, 1 dose, On 01/09/24 at 1615, STAT [facility] spironolact one 25 mg tablet 12-15 00:00: 00 01-15 04:59 :00 No [id number] 25mg Take 1 tablet by mouth in the morning for 30 days. [facility] furosemide (LASIX) tablet 40 mg 12-14 22:00: 00 Yes 40mg 40 mg, Oral, QAM+PM, First dose (after last modificati on) on Thu12/15/23 at 1700, Until Discontinu ed, Routine [facility] spironolact one (ALDACTONE) tablet 25 mg 12-14 14:00: 00 Yes 25mg 25 mg, Oral, DAILY, First dose on Thu12/15/23 at 0900, Until Discontinu ed, Routine [facility] tamsulosin (FLOMAX) capsule 0.4 mg 12-14 14:00: 00 Yes .4mg 0.4 mg, Oral, DAILY, First dose on Thu12/15/23 at 0900, Until Discontinu ed, Routine [facility] metoprolol succinate XL (TOPROL XL) tablet 12.5 mg 12-14 14:00: 00 Yes 12.5mg 12.5 mg, Oral, DAILY, First dose on Thu12/15/23 at 0900, Until Discontinu ed, Routine [facility] lisinopriL (PRINIVIL,Z ESTRIL) tablet 2.5 mg 12-14 14:00: 00 Yes 2.5mg [facility] DULoxetine (CYMBALTA) capsule 30 mg 12-14 14:00: 00 Yes 30mg 30 mg, Oral, DAILY, First dose on Thu12/15/23 at 0900, Until Discontinu ed, Routine [facility] digoxin (LANOXIN) tablet 125 mcg 12-14 14:00: 00 Yes 125ug 125 mcg, Oral, DAILY, First dose on Thu12/15/23 at 0900, Until Discontinu ed [facility] aspirin chewable tablet 81 mg 12-14 14:00: 00 Yes 81mg 81 mg, Oral, DAILY, First dose on Thu12/15/23 at 0900, Until Discontinu ed, Routine [facility] furosemide (LASIX) injection 40 mg 12-14 14:00: 00 12-14 13:49 :00 No 40mg 40 mg, Slow IV Push, ONCE, 1 dose, On Thu12/15/23 at 0900, Routine [facility] MULTIVITAMI N ORAL 12-14 11:08: 41 Yes 1{tbl} Take 1 Tab by mouth daily. [facility] omega-3 fatty acids-vitam in E (FISH OIL) 1,000 mg capsule 12-14 11:08: 41 Yes 1g Take 1 g by mouth daily. [facility] loratadine (CLARITIN LIQUI-GEL) 10 mg capsule 12-14 11:08: 41 Yes Take by mouth daily. [facility] ondansetron 4 mg tablet 12-14 11:08: 41 Yes 4mg Take 1 tablet by mouth every 8 (eight) hours as needed for Nausea and Vomiting (N/V). [facility] methylPREDN ISolone sod succ (SOLU-MEDRO L (PF)) injection 40 mg 12-14 11:00: 00 Yes 40mg 40 mg, Intravenou s, Q6H, First dose (after last modificati on) on Thu12/15/23 at 0600, Until Discontinu ed, Routine [facility] ipratropium -albuteroL (DUONEB) 0.5 mg-3 mg(2.5 mg base)/3 mL nebulizer solution 3 mL 12-14 08:08: 34 Yes 3mL 3 mL, Inhalation , QIDPRN, Starting on Thu12/15/23 at 0308, Until Discontinu ed, Routine, Wheezing, Shortness of Breath, Bronchospa sm, Chest tightness [facility] ipratropium -albuteroL (DUONEB) 0.5 mg-3 mg(2.5 mg base)/3 mL nebulizer solution 3 mL 12-14 03:19: 38 Yes 3mL 3 mL, Inhalation , QIDPRN, Starting on Thu12/14/23 at 2219, Until Discontinu ed, Routine, Wheezing, Shortness of Breath, Bronchospa sm, Chest tightness [facility] Sliding Scale Insulin - Lispro (HumaLOG) 12-14 02:00: 00 Yes [facility] mirtazapine (REMERON) tablet 15 mg 12-14 02:00: 00 Yes 15mg 15 mg, Oral, QHS, First dose on Thu12/14/23 at 2100, Until Discontinu ed, Routine [facility] atorvastati n (LIPITOR) tablet 40 mg 12-14 02:00: 00 Yes 40mg 40 mg, Oral, QHS, First dose on Thu12/14/23 at 2100, Until Discontinu ed, Routine [facility] lacosamide (VIMPAT) tablet 100 mg 12-14 01:00: 00 Yes 100mg 100 mg, Oral, BID, First dose on Thu12/14/23 at 1999, Until Discontinu ed, Routine [facility] gabapentin (NEURONTIN) capsule 100 mg 12-14 01:00: 00 Yes 100mg 100 mg, Oral, TID, First dose on Thu12/14/23 at 1999, Until Discontinu ed, Routine [facility] divalproex (DEPAKOTE) delayed release tablet 1,000 mg 12-14 01:00: 00 Yes 1000mg 1,000 mg, Oral, Q12H, First dose on Thu12/14/23 at 2000, Until Discontinu ed, Routine [facility] cyclobenzap rine (FLEXERIL) tablet 5 mg 12-14 01:00: 00 Yes 5mg 5 mg, Oral, TID, First dose on Thu12/14/23 at 2000, Until Discontinu ed, [facility]EL[facility] 5 mg 12-14 01:00: 00 02-28 00:59 :00 No [id number] 5mg 5 mg, Oral, BID, 152 doses, First dose on Thu12/14/23 at 1999, Last dose on Thu02/28/24 at 0800, Routine, Indication s: DVT/PE [facility] ondansetron (ZOFRAN (PF)) injection 4 mg 12-14 00:15: 00 12-13 23:26 :00 No 4mg 4 mg, Slow IV Push, ONCE, 1 dose, On Thu12/14/23 at 1915, Routine [facility] morpHINE (4 mg/mL) injection 4 mg 12-14 00:15: 00 12-13 23:27 :00 No 4mg 4 mg, Slow IV Push, ONCE, 1 dose, On Thu12/14/23 at 1915, STAT [facility] metFORMIN 500 mg tablet 12-14 00:00: 00 01-14 04:59 :00 No [id number] 500mg Take 1 tablet by mouth in the morning for 30 days. [facility] empaglifloz in (JARDIANCE) 10 mg tablet 12-14 00:00: 00 01-14 04:59 :00 No [id number] 10mg Take 1 tablet by mouth in the morning for 30 days. [facility] furosemide 40 mg tablet 12-14 00:00: 00 01-09 00:00 :00 No [id number] 60mg Take 1.5 tablets by mouth every morning and evening for 60 days. [facility] glucagon (GLUCAGEN DIAGNOSTIC KIT) injection 1 mg 12-13 23:57: 51 Yes 1mg [facility] dextrose 50 % in water (D50W) injection 25 mL 12-13 23:57: 51 Yes 25mL [facility] ondansetron (ZOFRAN (PF)) injection 4 mg 12-13 23:57: 45 Yes 4mg [facility] morpHINE (2 mg/mL) injection 2 mg 12-13 23:57: 39 12-14 23:56 :39 No 2mg 2 mg, Slow IV Push, Q4HPRN, Starting on Thu12/14/23 at 1857, Until Thu12/15/23 at 1856, Routine, Pain (scale 7-10) [facility] HYDROcodone -acetaminop hen (NORCO 5) 5-325 mg tablet 1 tablet 12-13 23:57: 36 12-15 23:56 :36 No 1{tbl} 1 tablet, Oral, Q6HPRN, Starting on Thu12/14/23 at 1857, Until Thu12/16/23 at 1856, Routine, Pain (scale 4-6) [facility] acetaminoph en (TYLENOL) tablet 650 mg 12-13 23:57: 28 Yes 650mg 650 mg, Oral, Q6HPRN, Starting on Thu12/14/23 at 1857, Until Discontinu ed, Routine, Pain (scale 1-3), Temp > 38 C [facility] dicyclomine (BENTYL) tablet 20 mg 12-13 23:53: 34 Yes 20mg [facility] methylpredn isolone sod succ (SOLU-MEDRO L) injection 125 mg 12-13 23:00: 00 12-14 08:08 :57 No 125mg 125 mg, Intravenou s, Q6H, First dose on Thu12/14/23 at 1800, Until Discontinu ed, Routine [facility] ipratropium -albuteroL (DUONEB) 0.5 mg-3 mg(2.5 mg base)/3 mL nebulizer solution 3 mL 12-13 21:00: 00 Yes 3mL 3 mL, Inhalation , QID, First dose on Thu12/14/23 at 1600, Until Discontinu ed, Routine [facility] ondansetron (ZOFRAN (PF)) injection 4 mg 12-13 20:45: 00 12-13 19:40 :00 No 4mg 4 mg, Slow IV Push, ONCE, 1 dose, On Thu12/14/23 at 1545, Routine [facility] morpHINE (4 mg/mL) injection 4 mg 12-13 20:45: 00 12-13 19:41 :00 No 4mg 4 mg, Slow IV Push, ONCE, 1 dose, On Thu12/14/23 at 1545, STAT [facility] furosemide (LASIX) tablet 40 mg 12-03 14:00: 00 Yes 40mg 40 mg, Oral, DAILY, First dose (after last modificati on) on Thu12/04/23 at 0900, Until Discontinu ed, Routine [facility] mirtazapine (REMERON) tablet 15 mg 12-03 02:00: 00 Yes 15mg [facility] metoprolol succinate XL 25 mg 24 hr tablet 12-03 00:00: 00 Yes [id number] 12.5mg Take 0.5 tablets by mouth in the morning. [facility] Potassium Bicarb-Citr ic Acid (EFFER-K) effervescen t tablet 40 mEq 12-02 21:06: 00 12-02 23:09 :00 No 40meq 40 mEq, Oral, ONCE, 1 dose, On Thu12/03/23 at 1615, Routine [facility] metoprolol succinate XL (TOPROL XL) tablet 12.5 mg 12-02 16:00: 00 Yes 12.5mg 12.5 mg, Oral, DAILY, First dose on Thu12/03/23 at 1100, Until Discontinu ed, Routine [facility] sennosides (SENOKOT) tablet 8.6 mg 12-02 15:00: 00 Yes 8.6mg 8.6 mg, Oral, DAILY, First dose on Thu12/03/23 at 1000, Until Discontinu ed, Routine [facility] acetaminoph en (TYLENOL) tablet 650 mg 12-02 14:47: 07 Yes 650mg 650 mg, Oral, Q6HPRN, Starting on Thu12/03/23 at 0947, Until Discontinu ed, Routine, Pain (scale 1-3) [facility] ipratropium -albuteroL (DUONEB) 0.5 mg-3 mg(2.5 mg base)/3 mL nebulizer solution 3 mL 12-02 14:45: 00 Yes 3mL 3 mL, Inhalation , QID, First dose (after last modificati on) on Thu12/03/23 at 0945, Until Discontinu ed, Routine [facility] tamsulosin (FLOMAX) capsule 0.4 mg 12-02 14:00: 00 Yes .4mg 0.4 mg, Oral, DAILY, First dose on Thu12/03/23 at 0900, Until Discontinu ed, Routine [facility] DULoxetine (CYMBALTA) capsule 30 mg 12-02 14:00: 00 Yes 30mg 30 mg, Oral, DAILY, First dose on Thu12/03/23 at 0900, Until Discontinu ed, Routine Univers [facility] digoxin (LANOXIN) tablet 125 mcg 12-02 14:00: 00 Yes 125ug 125 mcg, Oral, DAILY, First dose on Thu12/03/23 at 0900, Until Discontinu ed [facility] aspirin chewable tablet 81 mg 12-02 14:00: 00 Yes 81mg 81 mg, Oral, DAILY, First dose on Thu12/03/23 at 0900, Until Discontinu ed, [facility] 40 mg 12-02 14:00: 00 12-02 17:37 :33 No 40mg 40 mg, Oral, QAM+PM, First dose on Thu12/03/23 at 0900, Until Discontinu ed, Routine [facility] lacosamide (VIMPAT) tablet 100 mg 12-02 13:30: 00 Yes 100mg 100 mg, Oral, BID, First dose on Thu12/03/23 at 0830, Until Discontinu ed, Routine [facility] magnesium oxide (MAG-OX 400) tablet 400 mg 12-02 13:26: 00 12-02 14:24 :00 No 400mg 400 mg, Oral, ONCE, 1 dose, On Thu12/03/23 at 0830, Routine [facility] Potassium Bicarb-Citr ic Acid (EFFER-K) effervescen t tablet 40 mEq 12-02 13:19: 00 12-02 14:24 :00 No 40meq 40 mEq, Oral, ONCE, 1 dose, On Thu12/03/23 at 0830, Routine [facility] Sliding Scale Insulin - Lispro (HumaLOG) 12-02 13:00: 00 Yes Subcutaneo us, TID MEALS+HS, First dose on Thu12/03/23 at 0800, Until Discontinu ed, [facility] gab[facility] (NEURONTIN) capsule 100 mg 12-02 13:00: 00 Yes 100mg 100 mg, Oral, TID, First dose on Thu12/03/23 at 0800, Until Discontinu ed, Routine [facility] divalproex ER (DEPAKOTE ER) 24 hr tablet 1,000 mg 12-02 13:00: 00 Yes 1000mg 1,000 mg, Oral, Q12H, First dose on Thu12/03/23 at 0800, Until Discontinu ed, Routine [facility] cyclobenzap rine (FLEXERIL) tablet 5 mg 12-02 13:00: 00 Yes 5mg 5 mg, Oral, TID, First dose on Thu12/03/23 at 0800, Until Discontinu ed, Routine [facility] KCL (KLOR-CON M20) tablet 40 mEq 12-02 12:15: 00 12-02 14:24 :00 No 40meq 40 mEq, Oral, ONCE, 1 dose, On Thu12/03/23 at 0715, Routine [facility] KCL (KLOR-CON M20) tablet 20 mEq 12-02 04:00: 00 12-02 04:07 :00 No 20meq 20 mEq, Oral, ONCE, 1 dose, On Thu12/02/23 at 2300, Routine [facility] furosemide (LASIX) injection 40 mg 12-02 03:15: 00 12-02 02:36 :00 No 40mg 40 mg, Slow IV Push, ONCE, 1 dose, On Thu12/02/23 at 2215, Routine [facility] glucagon (GLUCAGEN DIAGNOSTIC KIT) injection 1 mg 12-02 02:54: 39 Yes 1mg 1 mg, Intramuscu lar, PRN, Starting on Thu12/02/23 at 2154, Until Discontinu ed, MICHAEL, Blood Glucose < or = 70 mg/dL and patient is NPO, unable to swallow or has mental changes. [facility] dextrose 50 % in water (D50W) injection 25 mL 12-02 02:54: 38 Yes 25mL 25 mL, Slow IV Push, PRN, Starting on Thu12/02/23 at 2154, Until Discontinu ed, MICHAEL, Blood Glucose < or = 70 mg/dL and patient is NPO, unable to swallow or has mental status changes. [facility] atorvastati n (LIPITOR) tablet 40 mg 12-02 02:00: 00 Yes 40mg 40 mg, Oral, QHS, First dose on Thu12/02/23 at 2100, Until Discontinu ed, Routine [facility] apixaban (ELIQUIS) tablet 5 mg 12-02 01:45: 00 02-28 00:59 :00 No [id number] 5mg 5 mg, Oral, BID, 176 doses, First dose on Thu12/02/23 at 2045, Last dose on Thu02/28/24 at 0800, Routine, Indication s: DVT/PE [facility] albuterol (PROVENTIL) 2.5 mg /3 mL (0.083 %) nebulizer solution 2.5 mg 12-02 01:40: 57 Yes 2.5mg [facility] ondansetron (ZOFRAN (PF)) injection 4 mg 12-02 01:02: 39 Yes 4mg 4 mg, Slow IV Push, Q6HPRN, Nausea and Vomiting (N/V), Starting on Thu12/02/23 at 2001, Doses of ondansetro n 16 mg and above need to be administer ed via IV piggyback. For Dose >=24mg ECG monitoring is advisable. [facility] lisinopriL 2.5 mg tablet 12-02 00:00: 00 Yes [id number] 2.5mg Take 1 tablet by mouth in the morning. [facility] acetaminoph en (OFIRMEV) IV piggyback 1,000 mg 12-01 22:15: 00 12-01 21:51 :00 No 1000mg 1,000 mg, IV Piggyback, at 400 mL/hr Administer over 15 Minutes, ONCE, 1 dose, On Thu12/02/23 at 1715, Routine, Is the patient strict NPO and unable to tolerate oral medication s? Yes [facility] iopamidol (ISOVUE 370-500 mL) injection 85 mL 12-01 19:15: 00 12-01 19:33 :00 No [id number] 85mL 85 mL, Intravenou s, ONCE, 1 dose, On Thu12/02/23 at 1415, Routine [facility] FENTanyl PF (SUBLIMAZE (PF)) injection 25 mcg 12-01 18:30: 00 12-01 19:38 :00 No 25ug 25 mcg, Slow IV Push, ONCE, 1 dose, On Thu12/02/23 at 1330, STAT [facility] NaCl 0.9% (NS) bolus infusion 1,000 mL 12-01 18:15: 00 12-01 21:00 :00 No 1000mL at 999 mL/hr, 1,000 mL, IV Infusion, ONCE, 1 dose, On Thu12/02/23 at 1315, STAT [facility] DULoxetine 30 mg capsule 11-28 00:00: 00 Yes [id number] 30mg Take 1 capsule by mouth in the morning. [facility] digoxin 125 mcg tablet 11-28 00:00: 00 Yes [id number] .125mg Take 1 tablet by mouth in the morning. [facility] tamsulosin 0.4 mg 24 hr capsule 11-28 00:00: 00 02-27 04:59 :00 No [id number] .4mg Take 1 capsule by mouth in the morning for 90 days. [facility] metoprolol succinate XL 50 mg 24 hr tablet 11-28 00:00: 00 12-02 00:00 :00 No [id number] 50mg Take 1 tablet by mouth in the morning. [facility] lisinopriL 5 mg tablet 11-28 00:00: 00 12-02 00:00 :00 No [id number] 5mg Take 1 tablet by mouth in the morning. [facility] spironolact one 25 mg tablet 11-28 00:00: 00 12-02 00:00 :00 No [id number] 50mg Take 2 tablets by mouth in the morning. [facility] metoprolol succinate XL (TOPROL XL) tablet 50 mg 11-27 14:00: 00 Yes 50mg 50 mg, Oral, DAILY, First dose (after last modificati on) on Thu11/28/23 at 0900, Until Discontinu ed, Routine [facility] KCL (KLOR-CON M20) tablet 40 mEq 11-27 12:30: 00 11-27 13:39 :00 No 40meq 40 mEq, Oral, ONCE, 1 dose, On Thu11/28/23 at 0730, Routine [facility] potassium chloride in water (KCL) 20 mEq/100 mL RTU IVPB 20 mEq 11-27 11:00: 00 11-27 13:40 :00 No 20meq 20 mEq, IV Piggyback, ONCE, 1 dose, On Thu11/28/23 at 0600, 100 mL [facility] clonazePAM (KLONOPIN) tablet 0.5 mg 11-27 02:45: 00 Yes .5mg 0.5 mg, Oral, QHS, First dose on Thu11/27/23 at 2145, Until Discontinu ed, Routine [facility] lacosamide (VIMPAT) tablet 100 mg 11-27 01:00: 00 Yes 100mg 100 mg, Oral, BID, First dose (after last modificati on) on Thu11/27/23 at 2000, Until Discontinu ed, Routine [facility] gabapentin 100 mg capsule 11-27 00:00: 00 Yes [id number] 100mg Take 1 capsule by mouth in the morning and 1 capsule at noon and 1 capsule in the evening. [facility] divalproex ER 500 mg 24 hr tablet 11-27 00:00: 00 04-03 00:00 :00 No [id number] 1000mg Take 2 tablets by mouth every 12 (twelve) hours. [facility] apixaban 5 mg tablet 11-27 00:00: 00 03-01 04:59 :00 No [id number] Take 2 tablets by mouth 2 (two) times daily for 3 days, THEN 1 tablet 2 (two) times daily for 90 days. Indication s: history of deep vein thrombosis [facility] furosemide 40 mg tablet 11-27 00:00: 00 12-14 00:00 :00 No [id number] 40mg Take 1 tablet by mouth every morning and evening. [facility] lacosamide (VIMPAT) 200 mg in NaCl 0.9% (NS) 50 mL piggyback 11-26 18:45: 00 11-26 23:04 :00 No 200mg 200 mg, IV Piggyback, ONCE, 1 dose, On Thu11/27/23 at 1345, Administer over 30 Minutes, 50 mL [facility] furosemide (LASIX) tablet 40 mg 11-26 14:00: 00 Yes 40mg 40 mg, Oral, QAM+PM, First dose on Thu11/27/23 at 0900, Until Discontinu ed, Routine [facility] divalproex ER (DEPAKOTE ER) 24 hr tablet 1,000 mg 11-26 13:00: 00 Yes 1000mg 1,000 mg, Oral, Q12H, First dose (after last modificati on) on Thu11/27/23 at 0800, Until Discontinu ed, Routine [facility] furosemide (LASIX) injection 40 mg 11-26 01:00: 00 11-26 01:57 :00 No 40mg 40 mg, Slow IV Push, BID, 1 dose, First dose (after last modificati on) on Thu11/26/23 at 2000, Routine [facility] divalproex ER (DEPAKOTE ER) 24 hr tablet 1,250 mg 11-26 01:00: 00 11-26 02:38 :40 No 1250mg 1,250 mg, Oral, Q12H, First dose (after last modificati on) on Thu11/26/23 at 1999, Until Discontinu ed, Routine [facility] cyanocobala min (DODEX) injection 1,000 mcg 11-25 18:30: 00 11-25 19:31 :00 No 1000ug 1,000 mcg, Intramuscu lar, ONCE, 1 dose, On Thu11/26/23 at 1330, Routine [facility] thiamine (VITAMIN B1) 100 mg in NaCl 0.9% (NS) piggyback 11-25 18:00: 00 11-30 13:59 :00 No 100mg IV Piggyback, DAILY, 5 doses, First dose on Thu11/26/23 at 1300, Last dose on Thu11/30/23 at 0900, 50 mL [facility] digoxin (LANOXIN) tablet 125 mcg 11-25 16:30: 00 Yes 125ug 125 mcg, Oral, DAILY, First dose on Thu11/26/23 at 1130, Until Discontinu ed, Routine [facility] metoprolol succinate XL (TOPROL XL) tablet 25 mg 11-25 16:15: 00 11-27 13:09 :49 No 25mg 25 mg, Oral, DAILY, First dose on Thu11/26/23 at 1115, Until Discontinu ed, Routine [facility] apixaban (ELIQUIS) tablet 10 mg 11-25 01:00: [...] Routine, Indication s: DVT/PE [Order 2 End] [facility] furosemide (LASIX) injection 40 mg 2023-11-25 01:00: 00 11-25 16:08 :20 No 40mg 40 mg, Slow IV Push, BID, First dose (after last modificati on) on Thu11/25/23 at 2000, Until Discontinu ed, Routine [facility] spironolact one (ALDACTONE) tablet 12.5 mg 2023-11-24 21:00: 00 Yes 12.5mg 12.5 mg, Oral, DAILY, First dose on Thu11/25/23 at 1600, Until Discontinu ed, Routine [facility] lisinopriL (PRINIVIL,Z ESTRIL) tablet 5 mg 2023-0 11-24 21:00: 00 Yes 5mg 5 mg, Oral, DAILY, First dose on Thu11/25/23 at 1600, Until Discontinu ed, Routine [facility] apixaban (ELIQUIS) tablet 5 mg 2023-0 11-24 16:30: 00 11-24 16:18 :00 No 5mg 5 mg, Oral, ONCE, 1 dose, On Thu11/25/23 at 1130, Routine, Indication s: DVT/PE [facility] apixaban (ELIQUIS) tablet 5 mg 11-24 14:00: 00 11-24 15:40 :42 No 5mg 5 mg, Oral, BID, 11 doses, First dose (after last modificati on) on Thu11/25/23 at 0900, Last dose on Thu11/30/23 at 0800, Routine, Indication s: DVT/PE [facility] divalproex ER (DEPAKOTE ER) 24 hr tablet 1,000 mg 2023-11-24 13:00: 00 11-25 17:41 :19 No 1000mg 1,000 mg, Oral, Q12H, First dose (after last modificati on) on Thu11/25/23 at 0800, Until Discontinu ed, Routine [facility] ondansetron (ZOFRAN (PF)) injection 4 mg 2023-0 11-24 03:45: 00 11-24 02:49 :00 No 4mg 4 mg, Slow IV Push, ONCE, On Thu11/24/23 at 2245, For 1 dose, Doses of ondansetro n 16 mg and above need to be administer ed via IV piggyback. For Dose >=24mg ECG monitoring is advisable. [facility] divalproex (DEPAKOTE) delayed release tablet 500 mg 11-24 03:45: 00 11-24 04:49 :00 No 500mg 500 mg, Oral, ONCE, 1 dose, On Thu11/24/23 at 2245, Routine [facility] nitroglycer in (NITROSTAT) sublingual tablet 0.4 mg 11-24 02:36: 01 Yes .4mg 0.4 mg, Sublingual , Q5MIN PRN, Starting on Thu11/24/23 at 2136, Until Discontinu ed, Routine, Chest pain [facility] nystatin (NILSTAT) 100,000 unit/mL suspension 500,000 Units 11-24 01:15: 00 11-26 20:18 :35 No 5mL 500,000 Units (5 mL), Oral, QID, First dose on Thu11/24/23 at 2014, Until Discontinu ed, Routine [facility] acetaminoph en-codeine (TYLENOL #3) 300-30 mg tablet 1 tablet 11-24 01:07: 37 Yes 1{tbl} 1 tablet, Oral, Q6HPRN, Starting on Thu11/24/23 at 2006, Until Discontinu ed, Routine, Pain (scale 4-6) [facility] iopamidol (ISOVUE 370-500 mL) injection 100 mL 11-23 23:15: 00 11-23 22:15 :00 No [id number] 100mL 100 mL, Intravenou s, ONCE, 1 dose, On Thu11/24/23 at 1815, Routine [facility] milrinone in 5 % dextrose (PRIMACOR) 20 mg/100 mL (200 mcg/mL) infusion RTU 11-23 20:45: 11-24 18:50 :54 No .25ug/k g/min 0.25 mcg/kg/min ?94.5 kg (7.0875 mL/hr, rounded to 7.09 mL/hr), IV Infusion, CONTINUOUS , Starting on Thu11/24/23 at 1545, 1. Dose to be adjusted by physician or provider. 2. Notify MD if MAP < 65 mmHG. [facility] polyethylen e glycol 3350 powder 17 g 11-23 19:15: 00 Yes 17g 17 g, Oral, DAILY, First dose on Thu11/24/23 at 1415, Until Discontinu ed, Routine [facility] ipratropium -albuteroL (DUONEB) 0.5 mg-3 mg(2.5 mg base)/3 mL nebulizer solution 3 mL 11-23 19:00: 00 Yes 3mL 3 mL, Inhalation , TID, First dose (after last modificati on) on Thu11/24/23 at 1400, Until Discontinu ed, Routine [facility] ondansetron (ZOFRAN (PF)) injection 4 mg 11-23 17:16: 00 11-23 17:24 :00 No 4mg 4 mg, Slow IV Push, ONCE, On Thu11/24/23 at 1230, For 1 dose, Doses of ondansetro n 16 mg and above need to be administer ed via IV piggyback. For Dose >=24mg ECG monitoring is advisable. [facility] apixaban (ELIQUIS) tablet 10 mg 11-23 15:45: 00 11-24 13:38 :20 No 10mg 10 mg, Oral, BID, 14 doses, First dose on Thu11/24/23 at 1045, Last dose on Thu11/30/23 at 2000, Routine, Indication s: DVT/PE [facility] milrinone in 5 % dextrose (PRIMACOR) 20 mg/100 mL (200 mcg/mL) infusion RTU 11-23 15:45: 00 11-23 20:33 :33 No .125ug/ kg/min 0.125 mcg/kg/min ?94.5 kg (3.5438 mL/hr, rounded to 3.54 mL/hr), IV Infusion, CONTINUOUS , Starting on Thu11/24/23 at 1045, 1. Dose to be adjusted by physician or provider. 2. Notify MD if MAP < [address] [facility] HYDROcodone -acetaminop hen (NORCO 5) 5-325 mg tablet 1 tablet 11-23 14:28: 00 11-23 15:37 :00 No 1{tbl} 1 tablet, Oral, ONCE, 1 dose, On Thu11/24/23 at 0930, Routine [facility] hydrALAZINE (APRESOLINE ) tablet 10 mg 11-23 12:30: 00 11-25 13:28 :25 No 10mg 10 mg, Oral, Q8H, First dose on Thu11/24/23 at 0730, Until Discontinu ed, Routine [facility] iohexoL (OMNIPAQUE 180-20 mL) injection 11-22 20:31: 56 11-22 20:32 :10 No ONCE INTRA PROCEDURE, Starting on Thu11/23/23 at 1531, Until Thu11/23/23 at 1532, Routine, CV Intraproce dure [facility] nitroglycer in (TRIDIL) 2 mg in 10 mL D5W for Cardiac Cath 11-22 19:32: 38 11-22 20:32 :10 No ONCE INTRA PROCEDURE, Starting on Thu11/23/23 at 1432, Until Thu11/23/23 at 1532, Routine, CV Intraproce dure [facility] heparin 1,000 unit/mL injection 11-22 19:31: 28 11-22 20:32 :10 No ONCE INTRA PROCEDURE, Starting on Thu11/23/23 at 1431, Until Thu11/23/23 at 1532, Routine, CV Intraproce dure [facility] midazolam (VERSED) injection 11-22 19:24: 54 11-22 20:32 :10 No ONCE INTRA PROCEDURE, Starting on Thu11/23/23 at 1424, Until Thu11/23/23 at 1532, Routine, CV Intraproce dure [facility] FENTanyl PF (SUBLIMAZE (PF)) injection 11-22 19:21: 00 11-22 20:32 :10 No ONCE INTRA PROCEDURE, Starting on Thu11/23/23 at 1421, Until Thu11/23/23 at 1532, Routine, CV Intraproce dure [facility] lidocaine 1% (PF) (XYLOCAINE) injection 11-22 19:20: 00 11-22 20:32 :10 No ONCE INTRA PROCEDURE, Starting on Thu11/23/23 at 1420, Until Thu11/23/23 at 1532, Routine, CV Intraproce dure [facility] furosemide 20 mg tablet 11-22 15:47: 27 11-27 00:00 :00 No 20mg Take 1 tablet by mouth every morning and evening. [facility] milrinone in 5 % dextrose (PRIMACOR) 20 mg/100 mL (200 mcg/mL) infusion RTU 11-22 15:45: 00 11-23 15:32 :54 No .25ug/k g/min 0.25 mcg/kg/min ?94.5 kg (7.0875 mL/hr, rounded to 7.09 mL/hr), IV Infusion, CONTINUOUS , Starting on Thu11/23/23 at 1045, 1. Dose to be adjusted by physician or provider. 2. Notify MD if MAP < 65 mmHG. [facility] DULoxetine (CYMBALTA) capsule 30 mg 11-22 14:00: 00 11-27 00:00 :00 No 30mg 30 mg, Oral, DAILY, First dose on Thu11/23/23 at 0900, Until Discontinu ed, Routine [facility] magnesium oxide (MAG-OX 400) tablet 400 mg 11-22 13:45: 00 11-22 14:00 :00 No 400mg 400 mg, Oral, ONCE, 1 dose, On Thu11/23/23 at 0845, Routine [facility] hydrOXYzine (ATARAX) tablet 50 mg 11-22 13:42: 15 Yes 50mg 50 mg, Oral, Q8HPRN, Starting on Thu11/23/23 at 0842, Until Discontinu ed, Routine, Anxiety [facility] KCL (KLOR-CON M20) tablet 40 mEq 11-22 10:45: 00 11-22 10:20 :00 No 40meq 40 mEq, Oral, ONCE, 1 dose, On Thu11/23/23 at 0545, Routine [facility] mirtazapine (REMERON) tablet 15 mg 11-22 02:00: 00 Yes 15mg 15 mg, Oral, QHS, First dose on Thu11/22/23 at 2100, Until Discontinu ed, Routine [facility] atorvastati n (LIPITOR) tablet 40 mg 11-22 02:00: 00 11-25 16:05 :43 No 40mg 40 mg, Oral, QHS, First dose on Thu11/22/23 at 2100, Until Discontinu ed, Routine [facility] divalproex (DEPAKOTE) delayed release tablet 500 mg 11-22 01:00: 00 11-23 12:27 :34 No 500mg 500 mg, Oral, BID, First dose on Thu11/22/23 at 2000, Until Discontinu ed, Routine [facility] milrinone in 5 % dextrose (PRIMACOR) 20 mg/100 mL (200 mcg/mL) infusion RTU 11-21 19:30: 00 11-22 15:38 :58 No .125ug/ kg/min 0.125 mcg/kg/min ?94.5 kg (3.5438 mL/hr, rounded to 3.54 mL/hr), IV Infusion, CONTINUOUS , Starting on Thu11/22/23 at 1430, 1. Dose to be adjusted by physician or provider. 2. Notify MD if MAP < 65 mmHG. [facility] diazePAM (VALIUM) injection 2 mg 11-21 19:28: 00 11-21 20:15 :00 No 2mg 2 mg, Intravenou s, ONCE, 1 dose, On 11/22/23 at 1430, Routine [facility] gabapentin (NEURONTIN) capsule 100 mg 11-21 19:00: 00 Yes 100mg 100 mg, Oral, TID, First dose on 11/22/23 at 1400, Until Discontinu ed, Routine [facility] furosemide (LASIX) injection 40 mg 11-21 19:00: 00 11-24 18:54 :28 No 40mg 40 mg, Slow IV Push, TID, First dose on 11/22/23 at 1400, Until Discontinu ed, Routine [facility] ondansetron (ZOFRAN-ODT ) disintegrat ing tablet 4 mg 11-21 18:45: 00 11-21 18:25 :00 No 4mg 4 mg, Oral, ONCE, 1 dose, On Thu11/22/23 at 1345, [facility] lipid microsphere s (DEFINITY) injection 2 mL 11-21 16:45: 00 11-21 16:45 :00 No [id number] 2mL 2 mL, IV Push, ONCE, 1 dose, On 11/22/23 at 1145, Routine [facility] furosemide (LASIX) injection 40 mg 11-21 14:15: 00 11-21 18:23 :20 No 40mg 40 mg, Slow IV Push, BID, 2 doses, First dose on 11/22/23 at 0915, Last dose on Thu11/22/23 at 2000, Routine [facility] losartan (COZAAR) tablet 25 mg 11-21 14:15: 00 11-21 20:14 :04 No 25mg 25 mg, Oral, DAILY, First dose on 11/22/23 at 0915, Until Discontinu ed, Routine [facility] tamsulosin (FLOMAX) capsule 0.4 mg 11-21 14:00: 00 Yes .4mg 0.4 mg, Oral, DAILY, First dose on 11/22/23 at 0900, Until Discontinu ed, Routine [facility] pantoprazol e (PROTONIX) EC tablet 40 mg 11-21 14:00: 00 Yes 40mg 40 mg, Oral, DAILY, First dose on 11/22/23 at 0900, Until Discontinu ed, Routine [facility] aspirin chewable tablet 81 mg 11-21 14:00: 00 Yes 81mg 81 mg, Oral, DAILY, First dose on 11/22/23 at 0900, Until Discontinu ed, Routine [facility] predniSONE (DELTASONE) tablet 40 mg 11-21 14:00: 00 11-25 13:14 :00 No 40mg 40 mg, Oral, DAILY, 5 doses, First dose on 11/22/23 at 0900, Last dose on Arpita 11/26/23 at 0900, Routine [facility] iopamidol (ISOVUE 370-500 mL) injection 80 mL 11-21 14:00: 00 11-21 14:00 :00 No [id number] 80mL 80 mL, Intravenou s, ONCE, 1 dose, On Thu11/22/23 at 0900, Routine [facility] Sliding Scale Insulin - Lispro (HumaLOG) 11-21 13:00: 00 Yes Subcutaneo us, TID MEALS+HS, First dose on Thu11/22/23 at 0800, Until Discontinu ed, Routine [facility] divalproex ER (DEPAKOTE ER) 24 hr tablet 500 mg 11-21 13:00: 00 11-24 02:43 :24 No 500mg 500 mg, Oral, Q12H, First dose on 11/22/23 at 0800, Until Discontinu ed, Routine [facility] ipratropium -albuteroL (DUONEB) 0.5 mg-3 mg(2.5 mg base)/3 mL nebulizer solution 3 mL 11-21 09:00: 00 11-23 15:56 :58 No 3mL 3 mL, Inhalation , Q4H, First dose on Thu11/22/23 at 0400, Until Discontinu ed, Routine [facility] furosemide (LASIX) injection 40 mg 11-21 07:45: 00 11-21 07:15 :00 No 40mg 40 mg, Slow IV Push, ONCE, 1 dose, On [place]on 11/22/23 at 0245, Routine [facility] sodium chloride 7% (HYPER-IRVIN) nebulizer solution 4 mL 11-21 07:00: 00 11-23 14:32 :09 No 4mL 4 mL, Inhalation , DAILY, First dose on [place]on 11/22/23 at 0200, Until Discontinu ed, Routine [facility] morpHINE (2 mg/mL) injection 2 mg 11-21 06:52: 11 Yes 2mg 2 mg, Slow IV Push, Q4HPRN, Starting on Thu11/22/23 at 0152, Until Discontinu ed, Routine, Pain (scale 7-10) [facility] heparin 25,000 Units/250 mL (Premixed Bag) [...] ant therapy. Range, Dosing and Testing: FOR [place], [facility], AND [facility] ONLY - aPTT < [...] once therapeuti c levels are reached. FOR [facility] ONLY - aPTT < [...] INITIAL BOLUS OR INITIAL INFUSION RATE. [facility] heparin (1,000 unit/mL, 10 mL vial) for Rebolusing 11-21 06:43: 39 11-23 15:32 :54 No 3000U FOR REBOLUSING , Starting on 11/22/23 at 0143, Until Tu11/24/23 at 1032, Routine, Dosing based on aPPT testing parameters (refer to continuous heparin drip order). [facility] glucagon (GLUCAGEN DIAGNOSTIC KIT) injection 1 mg 11-21 06:36: 57 Yes 1mg [facility] dextrose 50 % in water (D50W) injection 25 mL 11-21 06:36: 57 Yes 25mL [facility] acetaminoph en (TYLENOL) tablet 650 mg 11-21 06:36: 44 Yes 650mg 650 mg, Oral, Q6HPRN, Starting on 11/22/23 at 0136, Until Discontinu ed, Routine, Pain (scale 1-3) [facility] ondansetron (ZOFRAN (PF)) injection 4 mg 11-21 04:45: 00 11-21 03:46 :00 No 4mg 4 mg, Slow IV Push, ONCE, 1 dose, On 11/21/23 at 2345, MICHAEL [facility] acetaminoph en (TYLENOL) tablet 975 mg 11-21 04:45: 00 11-21 03:44 :00 No 975mg 975 mg, Oral, ONCE, 1 dose, On 11/21/23 at 2345, MICHAEL [facility] HEPARIN SODIUM (PORCINE) 1,000 UNIT/ML BOLUS ACS ORDER SET 11-21 04:15: 00 11-21 04:33 :00 No 4000U 4,000 Units, IV Push, ONCE, 1 dose, On 11/21/23 at 2315, MICHAEL [facility] morpHINE (4 mg/mL) injection 4 mg 11-21 04:15: 00 11-21 04:27 :00 No 4mg 4 mg, Slow IV Push, ONCE, 1 dose, On 11/21/23 at 2315, STAT [facility] methylpredn isolone sod succ (SOLU-MEDRO L) injection 125 mg 11-21 04:15: 00 11-21 03:24 :00 No 125mg 125 mg, Slow IV Push, ONCE NOW, 1 dose, On 11/21/23 at 2315, MICHAEL [facility] heparin 25,000 Units/250 mL (Premixed Bag) in [...] ant therapy. Range, Dosing and Testing: [facility], AND [facility] ONLY - aPTT < [...] ADJUST INITIAL BOLUS OR INITIAL INFUSION RATE. [facility] ipratropium -albuteroL (DUONEB) 0.5 mg-3 mg(2.5 mg base)/3 mL nebulizer solution 3 mL 11-21 04:00: 00 11-21 02:51 :00 No 3mL 3 mL, Inhalation , ONCE, 1 dose, On 11/21/23 at 2300, MICHAEL [facility] ipratropium -albuteroL (DUONEB) 0.5 mg-3 mg(2.5 mg base)/3 mL nebulizer solution 3 mL 11-21 03:30: 00 11-21 02:37 :00 No 3mL 3 mL, Inhalation , ONCE, 1 dose, On 11/21/23 at 2230, MICHAEL [facility] NaCl 0.9% (NS) bolus infusion 500 mL 11-21 03:15: 00 11-21 04:14 :00 No 500mL at 999 mL/hr, 500 mL, IV Infusion, ONCE, 1 dose, On 11/21/23 at 2215, STAT [facility] mirtazapine 15 mg tablet 09-30 00:00: 00 Yes 15mg Take 1 tablet by mouth at bedtime. [facility] Metformin HCl 500 MG oral Tablet 09-29 14:28: 11 Yes 500mg Take 1 tablet (500 mg total) by mouth daily (with breakfast) . Cynthia gonzalez Ibuprofen (MOTRIN) 200 MG oral Tablet 09-29 14:27: 32 09-29 00:00 :00 No 200mg Q.[id number] 3D Take 1 tablet (200 mg total) by mouth every 8 hours as needed for pain. [facility] gonzalez Fluticasone -Umeclidin- Vilant (Trelegy Ellipta) 100-62.5-25 MCG/ACT inhalation AEROSOL POWDER, BREATH ACTIVATED 09-29 00:00: 00 Yes [id number] 1{puff} Inhale 1 puff into the lungs daily. Cynthia gonzalez Carvedilol 12.5 MG oral Tablet 09-29 00:00: 00 Yes [id number] 12.5mg Take 1 tablet (12.5 mg total) by mouth in the morning and 1 tablet (12.5 mg total) in the evening. Take with meals. Cynthia gonzaelz Duloxetine HCl [address] Particles 09-29 00:00: 00 Yes [id number] 20mg Take 1 capsule (20 mg total) by mouth daily. Cynthia gonzalez Acetaminoph en-Codeine (TYLENOL/CO DEINE #3) 300-30 MG oral Tablet 09-29 00:00: 00 Yes [id number] 1{tbl} Q.25D Take 1 tablet by mouth every 6 hours as needed for pain. Cynthia gonzalez Clonazepam 1 MG oral Tablet 09-29 00:00: 00 Yes [id number] 1mg QD Take 1 tablet (1 mg total) by mouth nightly as needed for anxiety. Cynthia gonzalez spironolact one 25 mg tablet 09-29 00:00: 00 11-27 00:00 :00 No 25mg Take 1 tablet by mouth in the morning and 1 tablet in the evening. [facility] metFORMIN 500 mg tablet 09-28 00:00: 00 12-14 00:00 :00 No 500mg Take 1 tablet by mouth in the morning. [facility] Carvedilol 12.5 MG oral Tablet 09-28 00:00: [...] MG oral Tablet 09-11 00:00: 00 Yes [id number] 15mg QD Take 1 tablet (15 mg total) by mouth nightly as needed. Cynthia gonzalez Acetaminoph en-Codeine (TYLENOL/CO DEINE #3) 300-30 MG oral Tablet 09-11 00:00: 00 09-29 00:00 :00 No [id number] 1{tbl} Q.25D Take 1 tablet by mouth every 6 hours as needed for pain. [facility]thia gonzalez DULoxetine (CYMBALTA) 60 MG capsule 09-09 00:00: 00 10-08 23:59 :00 No 60mg QD Take 1 capsule (60 mg total) by mouth daily for 30 days. [facility] varenicline (CHANTIX) 1 mg tablet 09-08 10:51: 03 Yes 1mg Q.5D Take 1 tablet (1 mg total) by mouth 2 (two) times daily Give with meals and with a full glass of water.. [facility] atorvastati n (LIPITOR) 20 MG tablet 09-08 10:51: 03 Yes 20mg QD Take 1 tablet (20 mg total) by mouth daily. [facility] Cyanocobala min (Vitamin B-12) 1000 MCG oral Tablet 09-08 00:00: 00 10-08 04:59 :00 No 1000ug Take 1 tablet (1,000 mcg total) by mouth daily. Cynthia gonzalez lidocaine (LIDODERM) 4 % patch 09-08 00:00: 00 10-07 23:59 :00 No 3{patch } Q24H Place 3 patches onto the skin daily for 30 days. [facility] metoprolol succinate (TOPROL-XL) 25 MG 24 hr tablet 09-07 16:47: 05 09-07 00:00 :00 No 25mg QD Take 1 tablet (25 mg total) by mouth daily. [facility] albuterol HFA (VENTOLIN HFA) 90 mcg/actuati on inhaler 09-07 16:47: 05 09-07 00:00 :00 No 1{puff} Inhale 1 puff by mouth via inhaler every 6 (six) hours as needed for Wheezing. [facility] fluticasone -umeclidin- vilanter (Trelegy Ellipta) 200-62.5-25 mcg DsDv 09-07 16:47: 05 09-07 00:00 :00 No QD Inhale by mouth via inhaler daily. [facility] Albuterol HFA 108 (90 Base) MCG/ACT [...] total) by mouth daily for 30 days. [facility] polyethylen e glycol (GLYCOLAX) 17 gram packet 09-07 00:00: 00 10-06 23:59 :00 No 17g Q.5D Take 17 g by mouth 2 (two) times daily for 30 days. [facility] gabapentin (NEURONTIN) 400 MG capsule 09-07 00:00: 00 10-06 23:59 :00 No 400mg Q.[id number] 3D Take 1 capsule (400 mg total) by mouth 3 (three) times daily for 30 days. [facility] furosemide (LASIX) 20 MG tablet 09-07 00:00: 00 10-06 23:59 :00 No 20mg QD Take 1 tablet (20 mg total) by mouth daily for 30 days. [facility] fluticasone -umeclidin- vilanter (Trelegy Ellipta) 200-62.5-25 mcg DsDv 09-07 00:00: 00 10-06 23:59 :00 No 1{inhal ation} QD Inhale 1 Inhalation by mouth via inhaler daily for 30 days. [facility] metoprolol succinate (TOPROL-XL) 25 MG 24 hr tablet 09-07 00:00: 00 10-06 23:59 :00 No 25mg QD Take 1 tablet (25 mg total) by mouth daily for 30 days. [facility] lacosamide (VIMPAT) 100 mg in NaCl 0.9% (NS) 50 mL piggyback 08-12 21:15: 00 08-12 21:23 :00 No 100mg 100 mg, IV Piggyback, ONCE, 1 dose, On Thu08/12/23 at 1515, Administer over 30 Minutes, 50 mL
Facu lty member approving Restricted medication : MJ BRYAN [facility] Dicyclomine HCl 20 MG oral Tablet 08-06 [...] total) by mouth daily for 5 days. [facility] varenicline (CHANTIX) 1 mg tablet 2022-07 19:45: 32 Yes 1mg Q.5D Take 1 tablet (1 mg total) by mouth 2 (two) times daily Give with meals and with a full glass of water.. [facility] atorvastati n (LIPITOR) 20 MG tablet 2022-07 19:45: 32 Yes 20mg QD Take 1 tablet (20 mg total) by mouth daily. [facility] metoprolol succinate (TOPROL-XL) 25 MG 24 hr tablet 2022-07 19:45: 32 09-07 00:00 :00 No 25mg QD Take 1 tablet (25 mg total) by mouth daily. [facility] albuterol HFA (VENTOLIN HFA) 90 mcg/actuati on inhaler 2022-07 19:45: 32 09-07 00:00 :00 No 1{puff} Inhale 1 puff by mouth via inhaler every 6 (six) hours as needed for Wheezing. [facility] fluticasone -umeclidin- vilanter (Trelegy Ellipta) 200-62.5-25 mcg DsDv 2022-07 19:45: 32 09-07 00:00 :00 No QD Inhale by mouth via inhaler daily. [facility] acetaminoph en-codeine (TYLENOL #3) 300-30 mg per tablet 2022-07 18:02: 00 06-16 00:00 :00 No 1{tbl} Take 1 tablet by mouth every 4 (four) hours as needed for Pain. [facility] DULoxetine (CYMBALTA) 30 MG capsule 2022-07 00:00: 00 09-08 00:00 :00 No 30mg QD Take 1 capsule (30 mg total) by mouth daily for 90 days. [facility] metroNIDAZO LE (FLAGYL) 500 MG tablet 2022-07 00:00: 00 07-04 23:59 :00 No 500mg Take 1 tablet (500 mg total) by mouth every 8 (eight) hours for 18 days. [facility] ciprofloxac in HCl (CIPRO) 500 MG tablet 2022-07 00:00: 00 07-04 23:59 :00 No 500mg Q.5D Take 1 tablet (500 mg total) by mouth 2 (two) times daily for 18 days. [facility] cyclobenzap rine (FLEXERIL) 10 MG tablet 2022-07 00:00: 00 06-26 23:59 :00 No 10mg Q.[id number] 3D Take 1 tablet (10 mg total) by mouth 3 (three) times daily for 10 days. [facility] oxyCODONE (OXY-IR) 10 mg tablet 2022-07 00:00: 00 06-26 23:59 :00 No 10mg Take 1 tablet (10 mg total) by mouth every 8 (eight) hours as needed for up to 10 days. Max Daily Amount: 30 mg [facility] nystatin (MYCOSTATIN ) 100,000 unit/mL suspension 2022-07 00:00: 00 06-21 23:59 :00 No [id number] Q.25D Take 5 mLs (500,000 Units total) by mouth 4 (four) times daily for 5 days. [facility] dexAMETHaso ne (DECADRON) 2 MG tablet 2022-07 00:00: 00 06-08 23:59 :00 No 1mg Take 0.5 tablets (1 mg total) by mouth 2 (two) times daily with breakfast and dinner for 2 days. [facility] metoprolol succinate (TOPROL-XL) 25 MG 24 hr tablet 2022-07 17:44: 21 Yes 25mg QD Take 1 tablet (25 mg total) by mouth daily. [facility] varenicline (CHANTIX) 1 mg tablet 2022-07 17:44: 21 Yes 1mg Q.5D Take 1 tablet (1 mg total) by mouth 2 (two) times daily Give with meals and with a full glass of water.. [facility] albuterol HFA (VENTOLIN HFA) 90 mcg/actuati on inhaler 2022-07 17:44: 21 Yes 1{puff} Inhale 1 puff by mouth via inhaler every 6 (six) hours as needed for Wheezing. [facility] fluticasone -umeclidin- vilanter (Trelegy Ellipta) 200-62.5-25 mcg DsDv 2022-07 17:44: 21 Yes QD Inhale by mouth via inhaler daily. [facility] atorvastati n (LIPITOR) 20 MG tablet 2022-07 17:44: 21 Yes 20mg QD Take 1 tablet (20 mg total) by mouth daily. [facility] acetaminoph en-codeine (TYLENOL #3) 300-30 mg per tablet 2022-07 17:44: 21 Yes 1{tbl} Take 1 tablet by mouth every 4 (four) hours as needed for Pain. [facility] Naloxone (NARCAN) 4 MG/0.1ML nasal Liquid 2022-07 00:00: 00 Yes 4mg 0.1 mL (4 mg total) as needed. Cynthia gonzalez senna (SENOKOT) 8.6 mg tablet 2022-07 00:00: 00 06-18 23:59 :00 No 17.2mg Q.5D Take 2 tablets (17.2 mg total) by mouth 2 (two) times daily for 14 days. [facility] cyclobenzap rine (FLEXERIL) 10 MG tablet 2022-07 00:00: 00 06-16 00:00 :00 No 10mg [id number] 3D Take 1 tablet (10 mg total) by mouth 3 (three) times daily for 10 days. [facility] methocarbam oL (ROBAXIN) 500 MG tablet 2022-07 00:00: 00 06-16 00:00 :00 No 500mg Q.25D Take 1 tablet (500 mg total) by mouth 4 (four) times daily for 10 days. [facility] lactulose (CHRONULAC) 20 gram/30 mL solution 2022-07 00:00: 00 06-11 23:59 :00 No 20g [id number] 3D Take 30 mLs (20 g total) by mouth 3 (three) times daily for 7 days. [facility] ondansetron (ZOFRAN-ODT ) 4 MG disintegrat ing tablet 2022-07 00:00: 00 06-11 23:59 :00 No 4mg Take 1 tablet (4 mg total) by mouth every 6 (six) hours as needed for up to 7 days. [facility] metoprolol succinate (TOPROL-XL) 25 MG 24 hr tablet 2022-07 15:23: 22 Yes 25mg QD Take 1 tablet (25 mg total) by mouth daily. [facility] varenicline (CHANTIX) 1 mg tablet 2022-07 15:23: 22 Yes 1mg Q.5D Take 1 tablet (1 mg total) by mouth 2 (two) times daily Give with meals and with a full glass of water.. [facility] albuterol HFA (VENTOLIN HFA) 90 mcg/actuati on inhaler 2022-07 15:23: 22 Yes 1{puff} Inhale 1 puff by mouth via inhaler every 6 (six) hours as needed for Wheezing. [facility] fluticasone -umeclidin- vilanter (Trelegy Ellipta) 200-62.5-25 mcg DsDv 2022-07 15:23: 22 Yes QD Inhale by mouth via inhaler daily. [facility] atorvastati n (LIPITOR) 20 MG tablet 2022-07 15:23: 22 Yes 20mg QD Take 1 tablet (20 mg total) by mouth daily. [facility] acetaminoph en-codeine (TYLENOL #3) 300-30 mg per tablet 2022-07 15:23: 22 Yes 1{tbl} Take 1 tablet by mouth every 4 (four) hours as needed for Pain. [facility] acetaminoph en-codeine (TYLENOL #3) 300-30 mg per tablet 2022-07 09:42: 02 Yes 1{tbl} Take 1 tablet by mouth every 4 (four) hours as needed for Pain. Max Daily Amount: 6 tablets [facility] varenicline (CHANTIX) 1 mg tablet 2022-07 09:40: 04 Yes 1mg Q.5D Take 1 tablet (1 mg total) by mouth 2 (two) times daily Give with meals and with a full glass of water.. [facility] albuterol HFA (VENTOLIN HFA) 90 mcg/actuati on inhaler 2022-07 09:40: 04 Yes 1{puff} Inhale 1 puff by mouth via inhaler every 6 (six) hours as needed for Wheezing. [facility] fluticasone -umeclidin- vilanter (Trelegy Ellipta) 200-62.5-25 mcg DsDv 2022-07 09:40: 04 Yes QD Inhale by mouth via inhaler daily. [facility] atorvastati n (LIPITOR) 20 MG tablet 2022-07 09:40: 04 Yes 20mg QD Take 1 tablet (20 mg total) by mouth daily. [facility] metoprolol succinate (TOPROL-XL) 25 MG 24 hr tablet 2022-07 09:13: 28 Yes 25mg QD Take 1 tablet (25 mg total) by mouth daily. [facility] Atorvastati n Calcium 20 MG oral Tablet 2022-07 00:00: 00 Yes 20mg Take 1 tablet (20 mg total) by mouth daily. Cynthia gonzalez metoprolol succinate XL 25 mg 24 hr tablet 2022-07 00:00: 00 11-27 00:00 :00 No 25mg Take 1 tablet by mouth every morning. [facility] Nitroglycer in 0.4 MG sublingual SL Tab [...] tablet (20 mg total) by mouth daily. [facility] aspirin 81 MG EC tablet 04-03 00:00: 00 07-02 23:59 :00 No 81mg QD Take 1 tablet (81 mg total) by mouth daily for 90 days. [facility] divalproex (DEPAKOTE) 500 MG EC tablet 04-03 00:00: 00 07-02 23:59 :00 No 500mg Q.5D Take 1 tablet (500 mg total) by mouth 2 (two) times daily for 90 days. [facility] lisinopriL (PRINIVIL,Z ESTRIL) 5 MG tablet 04-03 00:00: 00 05-28 00:00 :00 No 5mg QD Take 1 tablet (5 mg total) by mouth daily. [facility] clonazePAM (KlonoPIN) 0.5 MG tablet 04-03 00:00: 00 05-03 23:59 :00 No .25mg Take 0.5 tablets (0.25 mg total) by mouth 2 (two) times daily as needed for Anxiety for up to 30 days. Max Daily Amount: 0.5 mg [facility] HYDROcodone -acetaminop hen (NORCO 10-325) 10-325 mg per tablet 04-03 00:00: 00 04-13 23:59 :00 No 1{tbl} Take 1 tablet by mouth every 6 (six) hours as needed for up to 10 days. Max Daily Amount: 4 tablets [facility] methocarbam oL (ROBAXIN) 500 MG tablet 04-03 00:00: 00 04-13 23:59 :00 No 500mg Q.25D Take 1 tablet (500 mg total) by mouth 4 (four) times daily for 10 days. [facility] gabapentin (NEURONTIN) 300 MG capsule 04-02 00:00: 00 04-03 00:00 :00 No 300mg Q.[id number] 3D Take 1 capsule (300 mg total) by mouth 3 (three) times daily for 90 days. [facility] divalproex (DEPAKOTE) 500 MG EC tablet 04-02 00:00: 00 04-03 00:00 :00 No 500mg Q.5D Take 1 tablet (500 mg total) by mouth 2 (two) times daily for 90 days. [facility] clonazePAM (KlonoPIN) 0.5 MG tablet 04-02 00:00: 00 04-03 00:00 :00 No .25mg Take 0.5 tablets (0.25 mg total) by mouth 2 (two) times daily as needed for Anxiety for up to 30 days. Max Daily Amount: 0.5 mg [facility] HYDROcodone -acetaminop hen (NORCO 10-325) 10-325 mg per tablet 04-02 00:00: 00 04-03 00:00 :00 No 1{tbl} Take 1 tablet by mouth every 6 (six) hours as needed for up to 10 days. Max Daily Amount: 4 tablets [facility] methocarbam oL (ROBAXIN) 500 MG tablet 04-02 00:00: 00 04-03 00:00 :00 No 500mg Q.25D Take 1 tablet (500 mg total) by mouth 4 (four) times daily for 10 days. [facility] Metronidazo le 500 MG oral Tablet [...] morning and 1 tablet in the evening. [facility] Divalproex Sodium 500 MG oral Tablet Delayed Response 01-14 00:00: 00 Yes 250mg 250 mg. Cynthia gonzalez lacosamide (VIMPAT) 200 mg in NaCl 0.9% (NS) 50 mL piggyback 12-11 19:45: 00 12-11 19:57 :00 No 200mg 200 mg, IV Piggyback, ONCE, 1 dose, On Thu12/11/22 at 1445, Administer over 30 Minutes, 50 mL
Facu lty member approving Restricted medication : Alfonso ALVARADO [facility] ketorolac (TORADOL) injection 15 mg 12-11 18:15: 00 12-11 17:25 :00 No 15mg 15 mg, Slow IV Push, ONCE, 1 dose, On Thu12/11/22 at 1315, MICHAEL [facility] iopamidol (ISOVUE 370-500 mL) injection 80 mL 12-11 16:30: 00 12-11 16:27 :00 No [id number] 80mL 80 mL, Intravenou s, ONCE, 1 dose, On Thu12/11/22 at 1130, Routine [facility] nitroglycer in (NITROL) 2 % ointment 0.5 Inch 12-11 15:30: 00 12-11 14:31 :00 No .5[in_u s] 0.5 Inch, Transderma l (Apply To Skin), ONCE, 1 dose, On Thu12/11/22 at 1030, [facility] aspirin chewable tablet 324 mg 12-11 15:30: 00 12-11 14:30 :00 No 324mg 324 mg, Oral, ONCE, 1 dose, On Thu12/11/22 at 1030, Routine [facility] ondansetron (ZOFRAN (PF)) injection 4 mg 12-11 15:30: 00 12-11 14:29 :00 No 4mg 4 mg, Slow IV Push, ONCE, 1 dose, On Thu12/11/22 at 1030, [facility] LORazepam (ATIVAN) injection 1 mg 12-11 15:00: 00 12-11 14:57 :00 No 1mg 1 mg, Slow IV Push, ONCE, 1 dose, On Thu12/11/22 at 1000, STAT [facility] Lacosamide (VIMPAT) 100 mg tablet 12-11 00:00: 00 Yes [id number] 100mg Take 1 tablet by mouth in the morning and 1 tablet in the evening. [facility] acetaminoph en-codeine (TYLENOL #3) 300-30 mg tablet 1 tablet 11-18 05:30: 00 11-18 05:30 :00 No 1{tbl} 1 tablet, Oral, ONCE, 1 dose, On Thu11/18/22 at 0030, [facility] methocarbam oL (ROBAXIN) tablet 1,000 mg 11-18 05:30: 00 11-18 05:30 :00 No 1000mg 1,000 mg, Oral, ONCE, 1 dose, On Thu11/18/22 at 0030, [facility] ondansetron (ZOFRAN (PF)) injection 4 mg 11-18 04:45: 00 11-18 03:38 :00 No 4mg 4 mg, Slow IV Push, ONCE, 1 dose, On Thu11/17/22 at 2345, [facility] morpHINE (4 mg/mL) injection 4 mg 11-18 03:45: 00 11-18 03:38 :00 No 4mg 4 mg, Slow IV Push, ONCE, 1 dose, On Thu11/17/22 at 2245, Routine [facility] methocarbam oL (ROBAXIN) injection 1,000 mg 11-18 00:30: 00 11-17 23:47 :00 No 1000mg 1,000 mg, Intravenou s, ONCE, 1 dose, On Thu11/17/22 at 1930, MICHAEL [facility] methocarbam oL 500 mg tablet 11-18 00:00: 00 12-02 00:00 :00 No [id number] 1000mg Take 2 tablets by mouth 4 (four) times daily as needed for Pain (scale 7-10). [facility] acetaminoph en-codeine 300-60 mg tablet 11-18 00:00: 00 11-26 04:59 :00 No [id number] 1{tbl} Take 1 tablet by mouth every 6 (six) hours as needed for Pain for up to 7 days. Indication s: acute pain [facility] ketorolac (TORADOL) injection 15 mg 11-18 00:00: 00 11-17 23:08 :00 No 15mg 15 mg, Slow IV Push, ONCE, 1 dose, On Thu11/17/22 at 1900, Routine [facility] morpHINE (4 mg/mL) injection 4 mg 11-17 23:45: 00 11-17 23:49 :00 No 4mg 4 mg, Slow IV Push, ONCE, 1 dose, On Thu11/17/22 at 1845, Routine [facility] ondansetron (ZOFRAN (PF)) injection 4 mg 11-17 23:15: 00 11-17 23:06 :00 No 4mg 4 mg, Slow IV Push, ONCE, 1 dose, On Thu11/17/22 at 1815, MICHAEL [facility] lisinopriL (PRINIVIL,Z ESTRIL) tablet 10 mg 08-02 15:00: 00 Yes 10mg 10 mg, Oral, DAILY, First dose on Thu08/02/22 at 0900, Until Discontinu ed, Routine [facility] predniSONE (DELTASONE) tablet 40 mg 08-02 15:00: 00 08-07 14:59 :00 No 40mg 40 mg, Oral, DAILY, 5 doses, First dose on Thu08/02/22 at 0900, Last dose on Thu08/06/22 at 0900, Routine [facility] morpHINE (2 mg/mL) injection 2 mg 08-02 03:29: 15 Yes 2mg 2 mg, Slow IV Push, Q4HPRN, Starting on Thu08/01/22 at 2129, Until Discontinu ed, Routine, Pain (scale 7-10) [facility] levETIRAcet am (KEPPRA) in NACL (ISO-OS) 1,000 mg/100 mL RTU 08-02 00:00: 00 Yes 1000mg 1,000 mg, IV Piggyback, Q12H, First dose on Thu08/01/22 at 1800, Until Discontinu ed, Administer over 15 Minutes, 100 mL [facility] MULTIVITAMI N ORAL 08-01 23:49: 34 Yes 1{tbl} Take 1 Tab by mouth daily. [facility] omega-3 fatty acids-vitam in E (FISH OIL) 1,000 mg capsule 08-01 23:49: 34 Yes 1g Take 1 g by mouth daily. [facility] loratadine (CLARITIN LIQUI-GEL) 10 mg capsule 08-01 23:49: 34 Yes Take by mouth daily. [facility] ondansetron 4 mg tablet 08-01 23:49: 34 Yes 4mg Take 1 tablet by mouth every 8 (eight) hours as needed for Nausea and Vomiting (N/V). [facility] omega-3 fatty acids-vitam in E (FISH OIL) 1,000 mg capsule 08-01 23:49: 34 Yes 1g Take 1 g by mouth daily. [facility] pantoprazol e 40 mg EC tablet 08-01 23:49: 34 11-27 00:00 :00 No 40mg Take 40 mg by mouth daily. [facility] benzonatate (TESSALON PERLES) capsule 100 mg 08-01 20:00: 00 Yes 100mg 100 mg, Oral, Q8H, First dose on Thu08/01/22 at 1400, Until Discontinu ed, Routine [facility] ipratropium -albuteroL (DUONEB) 0.5 mg-3 mg(2.5 mg base)/3 mL nebulizer solution 3 mL 08-01 18:00: 00 Yes 3mL 3 mL, Inhalation , QID, First dose on Thu08/01/22 at 1200, Until Discontinu ed, Routine [facility] ipratropium -albuteroL (DUONEB) 0.5 mg-3 mg(2.5 mg base)/3 mL nebulizer solution 3 mL 08-01 17:07: 07 Yes 3mL 3 mL, Inhalation , QIDPRN, Starting on Thu08/01/22 at 1107, Until Discontinu ed, MICHAEL, Wheezing, Shortness of Breath [facility] sulfur hexafluorid e microsphr (LUMASON) injection 5 mL 08-01 17:00: 00 08-01 17:00 :00 No [id number] 5mL 5 mL, Intravenou s, ONCE, 1 dose, On Thu08/01/22 at 1100, Routine
restaurant hourly team member approving Restricted medication : KYLEE DIEGO [facility] pantoprazol e (PROTONIX) EC tablet 40 mg 08-01 15:00: 00 Yes 40mg 40 mg, Oral, DAILY, First dose on Thu08/01/22 at 0900, Until Discontinu ed, Routine [facility] aspirin chewable tablet 81 mg 08-01 15:00: 00 Yes 81mg 81 mg, Oral, DAILY, First dose on Thu08/01/22 at 0900, Until Discontinu ed, Routine [facility] amLODIPine (NORVASC) tablet 10 mg 08-01 15:00: 00 Yes 10mg 10 mg, Oral, DAILY, First dose on Thu08/01/22 at 0900, Until Discontinu ed, Routine [facility] levETIRAcet am (KEPPRA) tablet 500 mg 08-01 14:00: 00 08-01 23:56 :35 No 500mg 500 mg, Oral, BID, First dose on Thu08/01/22 at 0800, Until Discontinu ed, Routine [facility] carvediloL (COREG) tablet 6.25 mg 08-01 14:00: 00 08-01 17:29 :13 No 6.25mg 6.25 mg, Oral, BID MEALS, First dose on Thu08/01/22 at 0800, Until Discontinu ed, Routine [facility] levETIRAcet am (KEPPRA) in NACL (ISO-OS) 1,000 mg/100 mL RTU 08-01 06:45: 00 08-01 06:32 :00 No 1000mg 1,000 mg, IV Piggyback, ONCE, 1 dose, On Thu08/01/22 at 0045, Administer over 15 Minutes, 100 mL [facility] LORazepam (ATIVAN) injection 1 mg 08-01 05:52: 54 Yes 1mg 1 mg, Slow IV Push, Q4HPRN, Starting on Thu07/31/22 at 2352, Until Discontinu ed, Routine, Seizures, Agitation, Anxiety, ETOH / Cocaine Withdrawl [facility] foLIC acid (FOLATE) tablet 1 mg 08-01 05:45: 00 Yes 1mg 1 mg, Oral, DAILY, First dose on Thu07/31/22 at 2345, Until Discontinu ed, Routine [facility] thiamine (VITAMIN B1) tablet 100 mg 08-01 05:45: 00 Yes 100mg 100 mg, Oral, DAILY, First dose on Thu07/31/22 at 2345, Until Discontinu ed, Routine [facility] LORazepam (ATIVAN) injection 0.5 mg 08-01 05:30: 00 08-01 05:29 :00 No .5mg 0.5 mg, Slow IV Push, ONCE, 1 dose, On Thu07/31/22 at 2330, MICHAEL [facility] atorvastati n (LIPITOR) tablet 40 mg 08-01 03:00: 00 Yes 40mg 40 mg, Oral, QHS, First dose on Thu07/31/22 at 2100, Until Discontinu ed, Routine [facility] diphenhydrA MINE (BENADRYL) tablet 25 mg 08-01 00:32: 02 Yes 25mg 25 mg, Oral, Q6HPRN, Starting on Thu07/31/22 at 1832, Until Discontinu ed, Routine, Itching [facility] enoxaparin (LOVENOX) injection 40 mg 07-31 23:00: 00 Yes 40mg 40 mg, Subcutaneo us, DAILY, First dose on Thu07/31/22 at 1700, Until Discontinu ed, Routine [facility] morpHINE (2 mg/mL) injection 2 mg 07-31 23:00: 00 07-31 22:29 :00 No 2mg 2 mg, Slow IV Push, ONCE, 1 dose, On Thu07/31/22 at 1700, Routine [facility] HYDROcodone -acetaminop hen (NORCO) 10-325 mg tablet 1 tablet 07-31 22:01: 36 Yes 1{tbl} 1 tablet, Oral, Q6HPRN, Starting on Thu07/31/22 at 1601, Until Discontinu ed, Routine, Pain (scale 7-10) [facility] HYDROcodone -acetaminop hen (NORCO 5) 5-325 mg tablet 1 tablet 07-31 22:01: 34 08-02 22:00 :34 No 1{tbl} 1 tablet, Oral, Q6HPRN, Starting on Thu07/31/22 at 1601, Until 08/02/22 at 1600, Routine, Pain (scale 4-6) [facility] acetaminoph en (TYLENOL) tablet 650 mg 07-31 22:01: 33 Yes 650mg 650 mg, Oral, Q6HPRN, Starting on Arpita 07/31/22 at 1601, Until Discontinu ed, Routine, Pain (scale 1-3) [facility] ketorolac (TORADOL) injection 15 mg 07-31 21:45: 00 07-31 20:50 :00 No 15mg 15 mg, Slow IV Push, ONCE, 1 dose, On Arpita 07/31/22 at 1545, Routine [facility] ondansetron (ZOFRAN (PF)) injection 4 mg 07-31 21:00: 00 07-31 20:47 :00 No 4mg 4 mg, Slow IV Push, ONCE, 1 dose, On Arpita 07/31/22 at 1500, MICHAEL [facility] furosemide (LASIX) injection 40 mg 07-31 20:15: 00 Yes 40mg 40 mg, Slow IV Push, Q12H, First dose on Arpita 07/31/22 at 1415, Until Discontinu ed, Routine [facility] methylpredn isolone sod succ (SOLU-MEDRO L) injection 125 mg 07-31 19:30: 00 07-31 18:54 :00 No 125mg 125 mg, Slow IV Push, ONCE NOW, 1 dose, On Arpita 07/31/22 at 1330, MICHAEL [facility] ipratropium -albuteroL (DUONEB) 0.5 mg-3 mg(2.5 mg base)/3 mL nebulizer solution 3 mL 07-31 19:30: 00 07-31 18:48 :00 No 3mL 3 mL, Inhalation , ONCE, 1 dose, On Arpita 07/31/22 at 1330, MICHAEL [facility] pantoprazol e 40 mg EC tablet 07-31 17:15: 40 Yes 40mg Take 40 mg by mouth daily. [facility] MULTIVITAMI N ORAL 07-31 15:50: 57 Yes 1{tbl} Take 1 Tab by mouth daily. [facility] loratadine (CLARITIN LIQUI-GEL) 10 mg capsule 07-31 15:50: 57 Yes Take by mouth daily. [facility] ondansetron 4 mg tablet 07-31 15:50: 57 Yes 4mg Take 4 mg by mouth every 8 (eight) hours as needed. [facility] omega-3 fatty acids-vitam in E (FISH OIL) 1,000 mg capsule 07-31 15:21: 27 Yes 1g Take 1 g by mouth daily. [facility] TAKE ONE (1) TABLET(S) BY MOUTH THREE TIMES A DAY NEEDED. 07-28 00:00: 00 No Methylpredn isolone 4 mg tablet 2021-07 00:00: 00 05-12 04:59 :00 No [id number] 4mg Take 1 tablet through enteral tube in the morning for 1 dose. [facility] Methylpredn isolone 4 mg tablet 2021-07 00:00: 00 05-11 04:59 :00 No [id number] 4mg Take 1 tablet through enteral tube every 12 (twelve) hours for 2 doses. [facility] MULTIVITAMI N ORAL 2021-07 14:44: 48 Yes 1{tbl} Take 1 Tab by mouth daily. [facility] omega-3 fatty acids-vitam in E (FISH OIL) 1,000 mg capsule 2021-07 14:44: 48 Yes 1g Take 1 g by mouth daily. [facility] loratadine (CLARITIN LIQUI-GEL) 10 mg capsule 2021-07 14:44: 48 Yes Take by mouth daily. [facility] ondansetron (ZOFRAN) 4 mg tablet 2021-07 14:44: 48 Yes 4mg Take 4 mg by mouth every 8 (eight) hours as needed. [facility] pantoprazol e (PROTONIX) 40 mg EC tablet 2021-07 14:44: 48 Yes 40mg Take 40 mg by mouth daily. [facility] DULoxetine 30 mg capsule 2021-07 14:00: 00 Yes 30mg Take 1 capsule by mouth in the morning. [facility] divalproex (DEPAKOTE) EC tablet 1,000 mg 2021-07 13:00: 00 Yes 1000mg 1,000 mg, Oral, BID, First dose (after last modificati on) on Thu05/08/22 at 0800, Until Discontinu ed, Routine [facility] Methylpredn isolone (MEDROL) tablet 4 mg 2021-07 08:50: 10 05-09 08:59 :00 No 4mg 4 mg, Oral, Q8H TAPER, 3 doses, First dose on Thu05/08/22 at 0400, Last dose on Thu05/08/22 at 2000, Routine [facility] acetaminoph en-codeine (TYLENOL #3) 300-30 mg tablet 1 tablet 2021-07 04:07: 01 Yes 1{tbl} 1 tablet, Oral, Q4HPRN, Starting on Thu05/07/22 at 2307, Until Discontinu ed, Routine, Pain (scale 7-10) [facility] morpHINE (2 mg/mL) injection 2 mg 2021-07 03:03: 15 Yes 2mg 2 mg, Slow IV Push, Q4HPRN, Starting on Thu05/07/22 at 2203, Until Discontinu ed, Routine, Pain (scale 7-10) [facility] LORazepam (ATIVAN) tablet 1 mg 2021-07 00:02: 18 Yes 1mg 1 mg, Oral, Q6HPRN, Starting on Thu05/07/22 at 1902, Until Discontinu ed, Routine, Anxiety [facility] cyclobenzap rine 5 mg tablet 2021-07 00:00: 00 Yes [id number] 5mg Take 1 tablet by mouth in the morning and 1 tablet at noon and 1 tablet in the evening. [facility] DULoxetine (CYMBALTA) 30 mg capsule 2021-07 00:00: 06-08 05:59 :00 No [id number] 60mg Take 2 capsules by mouth in the morning for 30 days. [facility] divalproex (DEPAKOTE) 250 mg EC tablet 2021-07 00:00: 00 06-08 05:59 :00 No [id number] 750mg Take 3 tablets by mouth every 8 (eight) hours for 30 days. [facility] LORazepam 1 mg tablet 2021-07 00:00: 00 05-19 04:59 :00 No [id number] 1mg Take 1 tablet by mouth every 6 (six) hours as needed for Anxiety or Agitation for up to 10 days. [facility] acetaminoph en-codeine 300-30 mg tablet 2021-07 00:00: 00 05-16 04:59 :00 No [id number] 1{tbl} Take 1 tablet by mouth every 4 (four) hours as needed for Pain (scale 7-10) for up to 7 days. Indication s: acute pain [facility] Methylpredn isolone 4 mg tablet 2021-07 00:00: 00 05-10 04:59 :00 No [id number] 4mg Take 1 tablet by mouth every 8 (eight) hours for 3 doses. [facility] divalproex (DEPAKOTE) EC tablet 750 mg 2021-07 01:00: 00 05-08 09:40 :23 No 750mg 750 mg, Oral, BID, First dose on Thu05/06/22 at 2000, Until Discontinu ed, Routine [facility] levETIRAcet am (KEPPRA) tablet 1,500 mg 2021-07 13:00: 00 05-06 18:38 :22 No 1500mg 1,500 mg, Oral, BID, First dose (after last modificati on) on Thu05/06/22 at 0800, Until Discontinu ed, Routine [facility] levETIRAcet am (KEPPRA) in NACL (ISO-OS) 1,000 mg/100 mL RTU 2021-07 05:00: 00 05-06 05:46 :00 No 1000mg 1,000 mg, IV Piggyback, ONCE, 1 dose, On Thu05/06/22 at 0000, Administer over 15 Minutes, 100 mL [facility] methocarbam oL (ROBAXIN) tablet 500 mg 2021-07 02:15: 00 05-06 23:21 :42 No 500mg 500 mg, Oral, QID, First dose on Thu05/05/22 at 2115, Until Discontinu ed, Routine [facility] LORazepam (ATIVAN) tablet 2 mg 2021-07 01:30: 00 05-06 01:03 :00 No 2mg 2 mg, Oral, ONCE, 1 dose, On Thu05/05/22 at 2030, Routine [facility] levETIRAcet am (KEPPRA) tablet 1,000 mg 2021-07 01:00: 00 05-06 04:48 :06 No 1000mg 1,000 mg, Oral, BID, First dose on Thu05/05/22 at 2000, Until Discontinu ed, Routine [facility] enoxaparin (LOVENOX) injection 40 mg 2021-07 00:15: 00 Yes 40mg 40 mg, Subcutaneo us, Q24H, First dose on Thu05/05/22 at 1915, Until Discontinu ed, Routine [facility] levETIRAcet am (KEPPRA) in NACL (ISO-OS) 1,000 mg/100 mL RTU 2021-07 19:45: 00 05-05 20:05 :00 No 1000mg 1,000 mg, IV Piggyback, ONCE, 1 dose, On Thu05/05/22 at 1445, Administer over 15 Minutes, 100 mL [facility] clonazePAM (KLONOPIN) tablet 0.5 mg 2021-07 19:30: 00 Yes .5mg 0.5 mg, Oral, BID, First dose on Thu05/05/22 at 1430, Until Discontinu ed, Routine [facility] ibuprofen (IBU) tablet 600 mg 2021-07 19:30: 00 Yes 600mg 600 mg, Oral, TID MEALS, First dose on Thu05/05/22 at 1430, Until Discontinu ed, Routine [facility] gabapentin (NEURONTIN) capsule 300 mg 2021-07 19:30: 00 Yes 300mg 300 mg, Oral, TID, First dose on Thu05/05/22 at 1430, Until Discontinu ed, Routine [facility] cyclobenzap rine (FLEXERIL) tablet 5 mg 2021-07 19:30: 00 Yes 5mg 5 mg, Oral, TID, First dose on Thu05/05/22 at 1430, Until Discontinu ed, Routine [facility] acetaminoph en (TYLENOL) tablet 1,000 mg 2021-07 19:30: 00 Yes 1000mg 1,000 mg, Oral, Q8H, First dose on Thu05/05/22 at 1430, Until Discontinu ed, Routine [facility] pantoprazol e (PROTONIX) EC tablet 40 mg 2021-07 14:00: 00 Yes 40mg 40 mg, Oral, DAILY, First dose on Thu05/05/22 at 0900, Until Discontinu ed, Routine [facility] docusate (COLACE) capsule 100 mg 2021-07 14:00: 00 Yes 100mg 100 mg, Oral, DAILY, First dose on Thu05/05/22 at 0900, Until Discontinu ed, Routine [facility] HYDROcodone -acetaminop hen (NORCO) 10-325 mg tablet 1 tablet 2021-07 10:32: 02 05-05 19:18 :52 No 1{tbl} 1 tablet, Oral, Q6HPRN, Starting on Thu05/05/22 at 0532, Until Thu05/05/22 at 1418, Routine, Pain (scale 7-10) [facility] ondansetron (ZOFRAN (PF)) injection 4 mg 2021-07 06:49: 57 Yes 4mg 4 mg, Slow IV Push, Q6HPRN, Starting on Thu05/05/22 at 0149, Until Discontinu ed, Routine, Nausea and Vomiting (N/V) [facility] HYDROcodone -acetaminop hen (NORCO 5) 5-325 mg tablet 1 tablet 2021-07 06:49: 41 05-05 10:32 :14 No 1{tbl} 1 tablet, Oral, Q6HPRN, Starting on Thu05/05/22 at 0149, Until Thu05/05/22 at 0532, Routine, Pain (scale 7-10) [facility] acetaminoph en (TYLENOL) tablet 325 mg 2021-07 06:49: 39 05-05 19:18 :52 No 325mg 325 mg, Oral, Q4HPRN, Starting on Thu05/05/22 at 0149, Until Thu05/05/22 at 1418, Routine, Pain (scale 4-6) [facility] ondansetron (ZOFRAN) tablet 4 mg 2021-07 04:00: 00 05-05 03:26 :00 No 4mg 4 mg, Oral, ONCE, 1 dose, On 05/04/22 at 2300, Routine [facility] morpHINE (2 mg/mL) injection 2 mg 2021-07 04:00: 00 05-05 03:26 :00 No 2mg 2 mg, Slow IV Push, ONCE, 1 dose, On 05/04/22 at 2300, Routine [facility] aspirin 81 mg chewable tablet 04-16 00:00: 00 Yes [id number] 81mg Take 1 tablet by mouth in the morning. [facility] MULTIVITAMI N ORAL 04-15 17:39: 14 Yes 1{tbl} Take 1 Tab by mouth daily. [facility] omega-3 fatty acids-vitam in E (FISH OIL) 1,000 mg capsule 04-15 17:39: 14 Yes 1g Take 1 g by mouth daily. [facility] loratadine (CLARITIN LIQUI-GEL) 10 mg capsule 04-15 17:39: 14 Yes Take by mouth daily. [facility] ondansetron (ZOFRAN) 4 mg tablet 04-15 17:39: 14 Yes 4mg Take 4 mg by mouth every 8 (eight) hours as needed. [facility] pantoprazol e (PROTONIX) 40 mg EC tablet 04-15 17:39: 14 Yes 40mg Take 40 mg by mouth daily. [facility] lisinopril- hydrochloro thiazide 20-12.5 mg per tablet 04-15 15:58: 35 04-15 00:00 :00 No 1{tbl} Take 1 tablet by mouth daily. [facility] levetiracet am (KEPPRA ORAL) 04-15 15:58: 35 04-15 00:00 :00 No Take by mouth. [facility] acetaminoph en-codeine (TYLENOL #4) 300-60 mg tablet 1 tablet 04-15 05:39: 23 04-15 14:39 :42 No 1{tbl} 1 tablet, Oral, Q6HPRN, Starting on Thu04/15/22 at 0039, Until Thu04/15/22 at 0939, Routine, Pain (scale 4-6), Pain (scale 1-3) [facility] LORazepam (ATIVAN) tablet 2 mg 04-15 03:30: 00 04-15 10:27 :00 No 2mg 2 mg, Oral, ONCE, 1 dose, On Thu04/14/22 at 2230, Routine [facility] levETIRAcet am (KEPPRA) tablet 1,000 mg 04-15 02:45: 00 Yes 1000mg 1,000 mg, Oral, BID, First dose (after last modificati on) on Thu04/14/22 at 2145, Until Discontinu ed, Routine [facility] ketorolac (TORADOL) injection 15 mg 04-15 02:13: 00 04-15 02:22 :00 No 15mg 15 mg, Slow IV Push, ONCE, 1 dose, On Thu04/14/22 at 2115, Routine [facility] levETIRAcet am 1,000 mg tablet 04-15 00:00: 00 Yes [id number] 1000mg Take 1 tablet by mouth in the morning and 1 tablet in the evening. [facility] atorvastati n 40 mg tablet 04-15 00:00: 00 01-09 00:00 :00 No [id number] 40mg Take 1 tablet by mouth at bedtime. [facility] lidocaine 5 % (700 mg/patch) patch 04-15 00:00: 00 04-23 04:59 :00 No [id number] 1{patch } Apply 1 Patch to area(s) in the morning for 7 days. [facility] HYDROcodone -acetaminop hen 5-325 mg tablet 04-15 00:00: 00 04-21 04:59 :00 No [id number] 1{tbl} Take 1 tablet by mouth every 6 (six) hours as needed for Pain (scale 7-10) for up to 5 days. Indication s: acute pain [facility] lidocaine (LIDODERM) 5 % (700 mg/patch) patch 1 Patch 04-14 21:45: 29 Yes 1{patch } 1 Patch, Topical, Administer over 12 Hours, [id number], Starting on Thu04/14/22 at 1645, Until Discontinu ed, Routine, Localized pain [facility] aspirin chewable tablet 81 mg 04-14 21:30: 00 Yes 81mg 81 mg, Oral, DAILY, First dose on Thu04/14/22 at 1630, Until Discontinu ed, Routine [facility] acetaminoph en (TYLENOL) tablet 650 mg 04-14 21:29: 25 Yes 650mg 650 mg, Oral, Q6HPRN, Starting on Thu04/14/22 at 1629, Until Discontinu ed, Routine, Pain (scale 1-3), Temp > 38.5 C, Temp > 37.[address] [facility] HYDROcodone -acetaminop hen (NORCO) 10-325 mg tablet 1 tablet 04-14 21:29: 02 04-15 05:39 :41 No 1{tbl} 1 tablet, Oral, Q6HPRN, Starting on Thu04/14/22 at 1629, Until Thu04/15/22 at 0039, Routine, Pain (scale 7-10), Pain (scale 4-6) [facility] sulfur hexafluorid e microsphr (LUMASON) injection 5 mL 04-14 16:45: 00 04-14 16:45 :00 No [id number] 5mL 5 mL, Intravenou s, ONCE, 1 dose, On Thu04/14/22 at 1145, Routine
restaurant hourly team member approving Restricted medication : MADELINE PIERRE [facility] clopidogreL (PLAVIX) 75 mg tablet 75 mg 04-14 14:00: 00 Yes 75mg 75 mg, Oral, DAILY, First dose on Thu04/14/22 at 0900, Until Discontinu ed, Routine [facility] pantoprazol e (PROTONIX) EC tablet 40 mg 04-14 14:00: 00 Yes 40mg 40 mg, Oral, DAILY, First dose on Thu04/14/22 at 0900, Until Discontinu ed, Routine [facility] atorvastati n (LIPITOR) tablet 40 mg 04-14 02:00: 00 Yes 40mg 40 mg, Oral, QHS, First dose on Thu04/13/22 at 2100, Until Discontinu ed, [facility] LOR[facility] (ATIVAN[facility] tablet 1 mg 04-14 01:30: 00 04-14 01:45 :00 No 1mg 1 mg, Oral, ONCE, 1 dose, On Thu04/13/22 at 2030, Routine [facility] methocarbam oL (ROBAXIN) tablet 500 mg 04-14 01:00: 00 Yes 500mg 500 mg, Oral, QID, First dose on Thu04/13/22 at 2000, Until Discontinu ed, Routine [facility] heparin (porcine) injection 5,000 Units 04-14 01:00: 00 Yes 5000U 5,000 Units, Subcutaneo us, Q12H, First dose on Thu04/13/22 at 2000, Until Discontinu ed, Routine [facility] acetaminoph en (TYLENOL) tablet 650 mg 04-14 00:23: 25 04-14 21:29 :42 No 650mg 650 mg, Oral, Q6HPRN, Starting on Thu04/13/22 at 1923, Until Thu04/14/22 at 1629, Routine, Pain (scale 1-3), Pain (scale 4-6), Temp > 38.5 C, Temp > 37.[address] [facility] lidocaine (LIDODERM) 5 % (700 mg/patch) patch 1 Patch 04-14 00:22: 00 04-14 13:51 :00 No 1{patch } 1 Patch, Topical, Administer over 12 Hours, ONCE, 1 dose, On Thu04/13/22 at 1930, Routine [facility] FENTanyl PF (SUBLIMAZE (PF)) injection 50 mcg 04-13 20:30: 00 04-13 19:22 :00 No 50ug 50 mcg, Slow IV Push, ONCE, 1 dose, On Thu04/13/22 at 1530, Routine [facility] aspirin chewable tablet 650 mg 04-13 20:15: 00 04-13 20:15 :00 No 650mg 650 mg, Oral, ONCE, 1 dose, On Thu04/13/22 at 1515, Routine [facility] clopidogreL (PLAVIX) 300 mg tablet 300 mg 04-13 20:00: 00 04-13 19:15 :00 No 300mg 300 mg, Oral, ONCE, 1 dose, On Thu04/13/22 at 1500, Routine [facility] ondansetron (ZOFRAN (PF)) injection 4 mg 04-13 19:30: 00 04-13 19:22 :00 No 4mg 4 mg, Slow IV Push, ONCE, 1 dose, On Thu04/13/22 at 1430[facility] 370-500 mL) injection 100 mL 04-13 18:31: 00 04-13 18:32 :00 No [id number] 100mL 100 mL, Intravenou s, ONCE, 1 dose, On 04/13/22 at 1345, Routine [facility] NaCl 0.9% (NS) injection 5 mL 04-13 18:14: 11 Yes 5mL 5 mL, Slow IV Push, PRN - SEE INSTRUCTIO NS, Starting on 04/13/22 at 1314, Until Discontinu ed, 10 mL [facility] aspirin chewable tablet 324 mg 11-24 14:00: 00 Yes 324mg 324 mg, Oral, DAILY, First dose on 11/24/21 at 0900, Until Discontinu ed, Routine [facility] metoclopram iker HCl (REGLAN) injection 10 mg 11-23 22:30: 00 11-23 21:24 :00 No 10mg 10 mg, Slow IV Push, ONCE, 1 dose, On 11/23/21 at 1730, [facility] acetaminoph en (TYLENOL) tablet 1,000 mg 11-23 22:15: 00 11-23 21:09 :00 No 1000mg 1,000 mg, Oral, ONCE, 1 dose, On 11/23/21 at 1715, [facility] ondansetron (ZOFRAN (PF)) injection 4 mg 11-23 21:45: 00 11-23 20:30 :00 No 4mg 4 mg, Slow IV Push, ONCE, 1 dose, On 11/23/21 at 1645, [facility] NaCl 0.9% (NS) bolus infusion 1,000 mL 11-23 21:30: 00 11-23 21:56 :00 No 1000mL at 999 mL/hr, 1,000 mL, IV Infusion, ONCE, 1 dose, On 11/23/21 at 1630, [facility] LORazepam (ATIVAN) injection 4 mg 0 11-23 21:30: 00 11-23 20:23 :00 No 4mg 4 mg, Slow IV Push, ONCE, 1 dose, On 11/23/21 at 1630, STAT [facility] levETIRAcet am (KEPPRA) in NACL (ISO-OS) 1,500 mg/100 mL RTU 0 11-23 21:30: 00 11-23 20:47 :00 No 1500mg 1,500 mg, IV Piggyback, ONCE, 1 dose, On 11/23/21 at 1630, Administer over 15 Minutes, [address] [facility] Dose Unknown 2021-0 4-08 00:00: 00 [...] y
Durat ion of Therapy: 7 days [facility] morpHINE injection 4 mg 03-17 01:58: 00 03-17 02:13 :00 No 4mg 4 mg, Slow IV Push, ONCE, 1 dose, 03/16/21 at 2100, STAT [facility] ondansetron (ZOFRAN (PF)) injection 4 mg 03-17 01:58: 00 03-17 02:12 :00 No 4mg 4 mg, Slow IV Push, ONCE, 1 dose, 03/16/21 at 2100, MICHAEL [facility] ipratropium -albuteroL (DUONEB) 0.5 mg-3 mg(2.5 mg base)/3 mL nebulizer solution 3 mL 03-17 01:57: 00 03-17 02:15 :00 No 3mL 3 mL, Inhalation , ONCE, 1 dose, 03/16/21 at 2100, [facility] NaCl 0.9% (NS) IV infusion 1,000 mL 03-17 01:57: 00 03-17 03:07 :00 No 1000mL at 999 mL/hr, Intravenou s, ONCE, 1 dose, 03/16/21 at 2100, [facility] methylpredn isolone sod succ (SOLU-MEDRO L) injection 125 mg 03-17 01:57: 00 03-17 02:11 :00 No 125mg 125 mg, Slow IV Push, ONCE, 1 dose, 03/16/21 at 2100, STAT [facility] levoFLOXaci n 500 mg tablet 03-17 00:00: 00 03-24 04:59 :00 No [id number] 500mg Take 1 tablet by mouth daily for 6 days. [facility] predniSONE 10 mg tablet 03-17 00:00: 00 03-22 04:59 :00 No [id number] 30mg Take 3 tablets by mouth daily for 4 days. [facility] albuterol (VENTOLIN) inhaler 4 Puff 03-15 01:45: 00 03-15 00:44 :00 No [id number] 4{puff} 4 Puff, Inhalation , ONCE, 1 dose, Arpita 03/14/21 at 2044, Routine [facility] dexamethaso ne (DECADRON) injection 10 mg 03-15 01:45: 00 03-15 00:45 :00 No [id number] 10mg 10 mg, Intramuscu lar, ONCE, 1 dose, Arpita 03/14/21 at 2044, Routine [facility] albuterol 2.5 mg /3 mL (0.083 %) nebulizer solution 03-15 00:00: 00 01-09 00:00 :00 No [id number] 2.5mg Inhale 3 mL every 4 (four) hours as needed for Wheezing or Shortness of Breath. [facility] levETIRAcet am (KEPPRA) in NACL (ISO-OS) 1,000 mg/100 mL RTU 02-19 20:15: 00 02-19 19:30 :00 No 1000mg 1,000 mg, IV Infusion, ONCE, 1 dose, 02/19/21 at 1515, Administer over 15 Minutes, 100 mL [facility] levetiracet am (KEPPRA ORAL) 02-19 19:45: 33 Yes Take by mouth. [facility] LISINOPRIL- HYDROCHLORO THIAZIDE ORAL 02-19 19:41: 15 02-19 00:00 :00 No Take by mouth. [facility] dicyclomine (BENTYL) injection 20 mg 02-19 19:15: 00 02-19 19:04 :00 No 20mg 20 mg, Intramuscu lar, ONCE, 1 dose, 02/19/21 at 1415, Routine [facility] proMETHazin e (PHENERGAN) 25 mg in NaCl 0.9% (NS) 50 mL piggyback 02-19 19:15: 00 02-19 19:03 :00 No 25mg 25 mg, IV Piggyback, ONCE, 1 dose, 02/19/21 at 1415, 50 mL [facility] morpHINE injection 4 mg 02-19 17:15: 00 02-19 17:05 :00 No 4mg 4 mg, Slow IV Push, ONCE, 1 dose, 02/19/21 at 1215, STAT [facility] NaCl 0.9% (NS) bolus infusion 1,000 mL 02-19 17:15: 00 02-19 19:04 :00 No 1000mL at 999 mL/hr, 1,000 mL, IV Infusion, ONCE, 1 dose, 02/19/21 at 1215, STAT [facility] ondansetron (ZOFRAN (PF)) injection 4 mg 02-19 17:00: 00 02-19 15:59 :00 No 4mg 4 mg, Slow IV Push, ONCE, 1 dose, Thu02/19/21 at 1200, MICHAEL [facility] iopamidol (ISOVUE 370-500 mL) injection 100 mL 02-19 16:35: 00 02-19 16:45 :00 No [id number] 100mL 100 mL, Intravenou s, ONCE, 1 dose, Thu02/19/21 at 1145, Routine [facility] levetiracet am (KEPPRA ORAL) 02-19 14:45: 33 Yes Take by mouth. [facility] dicyclomine 20 mg tablet 02-19 00:00: 00 01-09 00:00 :00 No [id number] 20mg Take 1 tablet by mouth 4 (four) times daily as needed for Abdominal pain. [facility] proMETHazin e 25 mg tablet 02-19 00:00: 00 11-27 00:00 :00 No [id number] 25mg Take 1 tablet by mouth every 6 (six) hours as needed for Nausea and Vomiting (N/V). [facility] ZONISAMIDE 100 mg capsule 11-15 00:00: 00 Yes TAKE 1 CAPSULE BY MOUTH TWICE A DAY [facility] ondansetron (ZOFRAN) 4 mg tablet 02-09 20:05: 01 Yes 4mg Take 4 mg by mouth every 8 (eight) hours as needed. [facility] pantoprazol e (PROTONIX) 40 mg EC tablet 02-09 20:05: 01 Yes 40mg Take 40 mg by mouth daily. [facility] LISINOPRIL- HYDROCHLORO THIAZIDE ORAL 02-09 20:05: 01 Yes Take by mouth. [facility] lisinopril- hydrochloro thiazide 20-12.5 mg per tablet 02-09 20:03: 30 Yes 1{tbl} Take 1 tablet by mouth daily. [facility] omega-3 fatty acids-vitam in E (FISH OIL) 1,000 mg capsule 02-09 19:59: 52 Yes 1g Take 1 g by mouth daily. [facility] MULTIVITAMI N ORAL 02-09 19:58: 14 Yes 1{tbl} Take 1 Tab by mouth daily. [facility] loratadine (CLARITIN LIQUI-GEL) 10 mg capsule 02-09 19:58: 14 Yes Take by mouth daily. [facility] ondansetron (ZOFRAN) 4 mg tablet 02-09 15:05: 01 Yes 4mg Take 4 mg by mouth every 8 (eight) hours as needed. [facility] pantoprazol e (PROTONIX) 40 mg EC tablet 02-09 15:05: 01 Yes 40mg Take 40 mg by mouth daily. [facility] lisinopril- hydrochloro thiazide 20-12.5 mg per tablet 02-09 15:03: 30 Yes 1{tbl} Take 1 tablet by mouth daily. [facility] omega-3 fatty acids-vitam in E (FISH OIL) 1,000 mg capsule 02-09 14:59: 52 Yes 1g Take 1 g by mouth daily. [facility] MULTIVITAMI N ORAL 02-09 14:58: 14 Yes 1{tbl} Take 1 Tab by mouth daily. [facility] loratadine (CLARITIN LIQUI-GEL) 10 mg capsule 02-09 14:58: 14 Yes Take by mouth daily. [facility] proMETHazin e (PHENERGAN) 25 mg tablet 11-20 00:00: 00 Yes 25mg Take 1 tablet by mouth every 6 (six) hours as needed for Nausea and Vomiting (N/V). [facility] carvedilol (COREG) 6.25 mg tablet 09-19 00:00: 00 12-02 00:00 :00 No 6.25mg Take 1 Tab by mouth 2 (two) times daily with meals. [facility] amLODIPine (NORVASC) 10 mg tablet 09-19 00:00: 00 12-02 00:00 :00 No 10mg Take 1 Tab by mouth daily. [facility] lisinopril (PRINIVIL,Z ESTRIL) 40 mg tablet 09-19 00:00: 00 11-27 00:00 :00 No 40mg Take 1 Tab by mouth daily. [facility] Immunizations Ordered Immunization Name Filled Immunization Name Date Status Comments Source SARS-COV-2 COVID-19 PFIZER BA-SUCROSE VACCINE (ROSE TOP) 2022-02-19 00:00:00 Completed [facility] SARS-COV-2 COVID-19 PFIZER BA-SUCROSE VACCINE (ROSE TOP) 2022-02-19 00:00:00 Completed [facility] SARS-COV-2 COVID-19 PFIZER BA-SUCROSE VACCINE (ROSE TOP) 2022-02-19 00:00:00 Completed [facility] SARS-COV-2 COVID-19 PFIZER BA-SUCROSE VACCINE (ROSE TOP) 2022-02-19 00:00:00 Completed [facility] SARS-COV-2 COVID-19 PFIZER BA-SUCROSE VACCINE (ROSE TOP) 2022-02-19 00:00:00 Completed [facility] SARS-COV-2 COVID-19 PFIZER BA-SUCROSE VACCINE (ROSE TOP) 2022-02-19 00:00:00 Completed [facility] SARS-COV-2 COVID-19 PFIZER BA-SUCROSE VACCINE (ROSE TOP) 2022-02-19 00:00:00 Completed [facility] SARS-COV-2 COVID-19 PFIZER BA-SUCROSE VACCINE (ROSE TOP) 2022-02-19 00:00:00 Completed [facility] SARS-COV-2 COVID-19 PFIZER BA-SUCROSE VACCINE (ROSE TOP) 2022-02-19 00:00:00 Completed [facility] SARS-COV-2 COVID-19 PFIZER BA-SUCROSE VACCINE (ROSE TOP) 2022-02-19 00:00:00 Completed [facility] SARS-COV-2 COVID-19 PFIZER VACCINE 2021-05-24 00:00:00 Completed SARS-COV-2 COVID-19 PFIZER VACCINE 2021-05-24 00:00:00 Completed [facility] SARS-COV-2 COVID-19 PFIZER VACCINE 2021-05-24 00:00:00 Completed [facility] SARS-COV-2 COVID-19 PFIZER VACCINE 2021-05-24 00:00:00 Completed [facility] SARS-COV-2 COVID-19 PFIZER VACCINE 2021-05-24 00:00:00 Completed [facility] SARS-COV-2 COVID-19 PFIZER VACCINE 2021-05-24 00:00:00 Completed [facility] SARS-COV-2 COVID-19 PFIZER VACCINE 2021-05-24 00:00:00 Completed [facility] SARS-COV-2 COVID-19 PFIZER VACCINE 2021-05-24 00:00:00 Completed [facility] SARS-COV-2 COVID-19 PFIZER VACCINE 2021-05-24 00:00:00 Completed [facility] SARS-COV-2 COVID-19 PFIZER VACCINE 2021-05-24 00:00:00 Completed [facility] SARS-COV-2 COVID-19 PFIZER VACCINE 2021-05-24 00:00:00 Completed [facility] SARS-COV-2 COVID-19 PFIZER VACCINE 2021-05-24 00:00:00 Completed [facility] SARS-COV-2 COVID-19 PFIZER VACCINE 2021-05-03 00:00:00 Completed [facility] SARS-COV-2 COVID-19 PFIZER VACCINE 2021-05-03 00:00:00 Completed [facility] SARS-COV-2 COVID-19 PFIZER VACCINE 2021-05-03 00:00:00 Completed [facility] SARS-COV-2 COVID-19 PFIZER VACCINE 2021-05-03 00:00:00 Completed [facility] SARS-COV-2 COVID-19 PFIZER VACCINE 2021-05-03 00:00:00 Completed [facility] SARS-COV-2 COVID-19 PFIZER VACCINE 2021-05-03 00:00:00 Completed [facility] SARS-COV-2 COVID-19 PFIZER VACCINE 2021-05-03 00:00:00 Completed [facility] SARS-COV-2 COVID-19 PFIZER VACCINE 2021-05-03 00:00:00 Completed [facility] SARS-COV-2 COVID-19 PFIZER VACCINE 2021-05-03 00:00:00 Completed [facility] SARS-COV-2 COVID-19 PFIZER VACCINE 2021-05-03 00:00:00 Completed [facility] SARS-COV-2 COVID-19 PFIZER VACCINE 2021-05-03 00:00:00 Completed [facility] SARS-COV-2 COVID-19 PFIZER VACCINE 2021-05-03 00:00:00 Completed [facility] SARS-COV-2 COVID-19 PFIZER VACCINE 2021-05-03 00:00:00 Completed [facility] SARS-COV-2 COVID-19 PFIZER VACCINE Unknown Completed [facility] SARS-COV-2 COVID-19 PFIZER BA-SUCROSE VACCINE (ROSE TOP) Unknown Completed [facility] SARS-COV-2 COVID-19 PFIZER BA-SUCROSE VACCINE (ROSE TOP) Unknown Completed [facility] SARS-COV-2 COVID-19 PFIZER VACCINE Unknown Completed [facility] SARS-COV-2 COVID-19 PFIZER VACCINE Unknown Completed [facility] SARS-COV-2 COVID-19 PFIZER BA-SUCROSE VACCINE (ROSE TOP) Unknown Completed [facility] SARS-COV-2 COVID-19 PFIZER VACCINE Unknown Completed [facility] SARS-COV-2 COVID-19 PFIZER BA-SUCROSE VACCINE (ROSE TOP) Unknown Completed [facility] SARS-COV-2 COVID-19 PFIZER VACCINE Unknown Completed [facility] SARS-COV-2 COVID-19 PFIZER BA-SUCROSE VACCINE (ROSE TOP) Unknown Completed [facility] SARS-COV-2 COVID-19 PFIZER VACCINE Unknown Completed [facility] SARS-COV-2 COVID-19 PFIZER BA-SUCROSE VACCINE (ROSE TOP) Unknown Completed [facility] SARS-COV-2 COVID-19 PFIZER VACCINE Unknown Completed [facility] SARS-COV-2 COVID-19 PFIZER BA-SUCROSE VACCINE (ROSE TOP) Unknown Completed [facility] SARS-COV-2 COVID-19 PFIZER VACCINE Unknown Completed [facility] SARS-COV-2 COVID-19 PFIZER BA-SUCROSE VACCINE (ROSE TOP) Unknown Completed [facility] SARS-COV-2 COVID-19 PFIZER VACCINE Unknown Completed [facility] SARS-COV-2 COVID-19 PFIZER BA-SUCROSE VACCINE (ROSE TOP) Unknown Completed [facility] SARS-COV-2 COVID-19 PFIZER VACCINE Unknown Completed [facility] SARS-COV-2 COVID-19 PFIZER BA-SUCROSE VACCINE (ROSE TOP) Unknown Completed [facility] SARS-COV-2 COVID-19 PFIZER VACCINE Unknown Completed [facility] SARS-COV-2 COVID-19 PFIZER BA-SUCROSE VACCINE (ROSE TOP) Unknown Completed [facility] SARS-COV-2 COVID-19 PFIZER VACCINE Unknown Completed [facility] SARS-COV-2 COVID-19 PFIZER BA-SUCROSE VACCINE (ROSE TOP) Unknown Completed [facility] SARS-COV-2 COVID-19 PFIZER VACCINE Unknown Completed [facility] SARS-COV-2 COVID-19 PFIZER BA-SUCROSE VACCINE (ROSE TOP) Unknown Completed [facility] SARS-COV-2 COVID-19 PFIZER VACCINE Unknown Completed [facility] SARS-COV-2 COVID-19 PFIZER BA-SUCROSE VACCINE (ROSE TOP) Unknown Completed [facility] Vital Signs Vital Name Observation Time Observation Value Comments S ource Systolic blood pressure 2024-08-10 15:08:00 164 mm[Hg] [facility] Diastolic blood pressure 2024-08-10 15:08:00 87 mm[Hg] [facility] Heart rate 2024-08-10 15:08:00 90 [facility] Body temperature 2024-08-10 15:08:00 36.44 Radha [facility] Respiratory rate 2024-08-10 15:08:00 20 /min [facility] Oxygen saturation in Arterial blood by Pulse oximetry 2024-08-10 15:08:00 97 /min [facility] Body height 2024-08-10 05:20:00 160 cm Jeffrey margarita [facility] Body weight 2024-08-10 05:20:00 81.647 kg Jeffrey Bolaños [facility] BMI 2024-08-10 05:20:00 31.89 kg/m2 Jeffrey Bolaños [facility] Systolic blood pressure 2024-08-10 15:08:00 164 mm[Hg] [facility] Diastolic blood pressure 2024-08-10 15:08:00 87 mm[Hg] [facility] Heart rate 2024-08-10 15:08:00 90 /min [facility] ial [facility] Body temperature 2024-08-10 15:08:00 36.44 Radha [facility] Respiratory rate 2024-08-10 15:08:00 20 /min [facility] Oxygen saturation in Arterial blood by Pulse oximetry 2024-08-10 15:08:00 97 /min [facility] Her [place] [facility] Body height 2024-08-10 05:20:00 160 [facility] 2024-08-10 05:20:00 81.647 [facility] 2024-08-10 05:20:00 31.89 kg/m2 Jeffreytavo avila [facility] Systolic blood pressure 2024-04-03 05:10:00 111 mm[Hg] [facility] Diastolic blood pressure 2024-04-03 05:10:00 65 mm[Hg] [facility] Heart rate 2024-04-03 05:10:00 70 /min [facility] Res[facility] 2024-04-03 05:10:00 23 /min [facility] Oxygen saturation in Arterial blood by Pulse oximetry 2024-04-03 05:10:00 97 /min [facility] Body temperature 2024-04-03 01:49:00 37.33 Radha [facility] Body height 2024-04-03 01:49:00 157.5 cm [facility] Body weight 2024-04-03 01:49:00 90.719 kg [facility] BMI 2024-04-03 01:49:00 36.58 kg/m2 [facility] Systolic blood pressure 2024-01-13 04:50:00 103 mm[Hg] [facility] Diastolic blood pressure 2024-01-13 04:50:00 72 mm[Hg] [facility] Heart rate 2024-01-13 04:50:00 85 /min [facility] Body temperature 2024-01-13 04:50:00 36.67 Radha [facility] Oxygen saturation in Arterial blood by Pulse oximetry 2024-01-13 04:50:00 99 /min [facility] Respiratory rate 2024-01-13 04:40:00 19 /min [facility] Body height 2024-01-13 03:06:00 160 cm [facility] Body weight 2024-01-13 03:06:00 81.194 kg [facility] BMI 2024-01-13 03:06:00 31.71 kg/m2 [facility] Systolic blood pressure 2024-01-10 20:00:00 95 mm[Hg] [facility] Diastolic blood pressure 2024-01-10 20:00:00 71 mm[Hg] [facility] Heart rate 2024-01-10 20:00:00 73 /min [facility] Body temperature 2024-01-10 20:00:00 36.83 Radha [facility] Respiratory rate 2024-01-10 20:00:00 23 /min [facility] Oxygen saturation in Arterial blood by Pulse oximetry 2024-01-10 20:00:00 94 /min [facility] Body weight 2024-01-10 09:00:00 81.466 kg [facility] BMI 2024-01-10 09:00:00 32.85 kg/m2 [facility] Body height 2024-01-09 21:10:00 157.5 cm [facility] Heart rate 2023-12-15 12:35:00 73 /min [facility] Respiratory rate 2023-12-15 12:35:00 18 /min [facility] Oxygen saturation in Arterial blood by Pulse oximetry 2023-12-15 12:35:00 95 /min [facility] Systolic blood pressure 2023-12-15 12:20:00 105 mm[Hg] [facility] Diastolic blood pressure 2023-12-15 12:20:00 64 mm[Hg] [facility] Body temperature 2023-12-15 12:20:00 36.11 Radha [facility] Body weight 2023-12-15 08:12:00 78.472 kg [facility] BMI 2023-12-15 08:12:00 30.65 kg/m2 [facility] Body height 2023-12-15 02:10:00 160 cm [facility] Systolic blood pressure 2023-12-03 23:00:00 106 mm[Hg] [facility] Diastolic blood pressure 2023-12-03 23:00:00 75 mm[Hg] [facility] Heart rate 2023-12-03 23:00:00 108 /min [facility] Body temperature 2023-12-03 23:00:00 36.61 Radha [facility] Respiratory rate 2023-12-03 23:00:00 17 /min [facility] Oxygen saturation in Arterial blood by Pulse oximetry 2023-12-03 23:00:00 96 /min [facility] Body height 2023-12-03 19:39:00 160 cm [facility] Body weight 2023-12-03 19:39:00 90.7 kg [facility] BMI 2023-12-03 19:39:00 35.43 kg/m2 [facility] Systolic blood pressure 2023-11-28 16:39:00 91 mm[Hg] [facility] Diastolic blood pressure 2023-11-28 16:39:00 65 mm[Hg] [facility] Heart rate 2023-11-28 16:39:00 105 [facility] Body temperature 2023-11-28 16:39:00 36.28 Radha [facility] Respiratory rate 2023-11-28 16:39:00 20 /min [facility] Oxygen saturation in Arterial blood by Pulse oximetry 2023-11-28 16:39:00 97 /min [facility] Body weight 2023-11-28 01:00:00 84 kg [facility] BMI 2023-11-28 01:00:00 32.81 kg/m2 [facility] Body height 2023-11-22 07:10:00 160 cm [facility] Systolic blood pressure 2023-11-23 19:43:25 123 mm[Hg] [facility] Diastolic blood pressure 2023-11-23 19:43:25 79 mm[Hg] [facility] Respiratory rate 2023-11-23 19:43:25 17 /min [facility] Oxygen saturation in Arterial blood by Pulse oximetry 2023-11-23 19:43:25 97 /min [facility] Heart rate 2023-11-23 19:20:46 122 /min [facility] Body temperature 2023-11-23 15:00:00 36.22 Radha [facility] Body height 2023-11-22 07:10:00 160 cm [facility] Body weight 2023-11-22 07:10:00 94.484 kg [facility] BMI 2023-11-22 07:10:00 35.16 kg/m2 [facility] Systolic blood pressure 2023-09-11 17:27:00 122 mm[Hg] Cynthia [facility]bo [facility] - External Diastolic blood pressure 2023-09-11 17:27:00 74 mm[Hg] Cytnhia [facility] Heart rate 2023-09-11 [...] [facility] Heart rate 2023-08-12 21:00:00 106 /min [facility] Respiratory rate 2023-08-12 21:00:00 14 /min [facility] Oxygen saturation in Arterial blood by Pulse oximetry 2023-08-12 21:00:00 95 /min [facility] Body temperature 2023-08-12 20:34:54 37.22 Radha [facility] Body height 2023-08-12 19:47:00 157.5 cm [facility] Body weight 2023-08-12 19:47:00 81.647 kg [facility] BMI 2023-08-12 19:47:00 32.92 kg/m2 [facility] WEIGHT 2023-06-16 05:26:00 86.047 kg HEIGHT 2023-06-13 [...] [facility] Heart rate 2022-12-11 18:00:00 101 /min [facility] Oxygen saturation in Arterial blood by Pulse oximetry 2022-12-11 18:00:00 93 /min [facility] BMI 2022-12-11 13:55:00 35.43 kg/m2 [facility] Body temperature 2022-12-11 13:55:00 37.22 Radha [facility] Body weight 2022-12-11 13:55:00 90.719 kg [facility] Systolic blood pressure 2022-11-18 05:34:00 152 mm[Hg] [facility] Diastolic blood pressure 2022-11-18 05:34:00 98 mm[Hg] [facility] Heart rate 2022-11-18 05:34:00 88 /min [facility] Respiratory rate 2022-11-18 05:34:00 18 /min [facility] Oxygen saturation in Arterial blood by Pulse oximetry 2022-11-18 05:34:00 97 /min [facility] Body temperature 2022-11-17 22:28:00 37.06 Radha [facility] Body height 2022-11-17 22:28:00 160 cm [facility] Body weight 2022-11-17 22:28:00 99.791 kg [facility] BMI 2022-11-17 22:28:00 38.97 kg/m2 [facility] Heart rate 2022-08-02 02:02:00 108 /min [facility] Respiratory rate 2022-08-02 02:02:00 28 /min [facility] Oxygen saturation in Arterial blood by Pulse oximetry 2022-08-02 02:02:00 97 /min [facility] Body temperature 2022-08-02 01:00:00 36.44 Radha [facility] Systolic blood pressure 2022-08-01 23:29:00 145 mm[Hg] [facility] Diastolic blood pressure 2022-08-01 23:29:00 103 mm[Hg] [facility] Body weight 2022-08-01 09:16:00 97.977 kg [facility] BMI 2022-08-01 09:16:00 38.26 kg/m2 [facility] Body height 2022-07-31 21:54:00 160 cm [facility] Systolic blood pressure 2022-05-08 16:40:00 146 mm[Hg] [facility] Diastolic blood pressure 2022-05-08 16:40:00 96 mm[Hg] [facility] Heart rate 2022-05-08 16:40:00 112 /min [facility] Body temperature 2022-05-08 16:40:00 36.78 Radha [facility] Respiratory rate 2022-05-08 16:40:00 18 /min [facility] Oxygen saturation in Arterial blood by Pulse oximetry 2022-05-08 16:40:00 94 /min [facility] Body height 2022-05-05 23:44:00 160 cm [facility] Body weight 2022-05-05 23:37:00 81.647 kg [facility] BMI 2022-05-05 23:37:00 31.89 kg/m2 [facility] Systolic blood pressure 2022-04-15 18:52:00 104 mm[Hg] [facility] Diastolic blood pressure 2022-04-15 18:52:00 82 mm[Hg] [facility] Heart rate 2022-04-15 18:52:00 114 /min [facility] Oxygen saturation in Arterial blood by Pulse oximetry 2022-04-15 18:52:00 98 /min [facility] Body temperature 2022-04-15 16:14:00 36.28 Radha [facility] Respiratory rate 2022-04-15 16:14:00 17 /min [facility] Body height 2022-04-13 21:08:00 160 cm [facility] Body weight 2022-04-13 21:08:00 91.173 kg [facility] BMI 2022-04-13 21:08:00 35.61 kg/m2 [facility] Systolic blood pressure 2021-11-23 21:30:00 132 mm[Hg] [facility] Diastolic blood pressure 2021-11-23 21:30:00 76 mm[Hg] [facility] Heart rate 2021-11-23 21:30:00 95 /min [facility] Respiratory rate 2021-11-23 21:30:00 13 /min [facility] Oxygen saturation in Arterial blood by Pulse oximetry 2021-11-23 21:30:00 97 /min [facility] Body temperature 2021-11-23 20:15:00 37.56 Radha [facility] Systolic blood pressure 2021-03-17 03:00:00 117 mm[Hg] [facility] Diastolic blood pressure 2021-03-17 03:00:00 76 mm[Hg] [facility] Heart rate 2021-03-17 03:00:00 104 /min [facility] Respiratory rate 2021-03-17 03:00:00 28 /min [facility] Oxygen saturation in Arterial blood by Pulse oximetry 2021-03-17 03:00:00 96 /min [facility] Body temperature 2021-03-17 00:39:00 37.11 Radha [facility] Body height 2021-03-17 00:39:00 160 cm [facility] Body weight 2021-03-17 00:39:00 58.968 kg [facility] BMI 2021-03-17 00:39:00 23.03 kg/m2 [facility] Systolic blood pressure 2021-03-15 00:14:00 149 mm[Hg] [facility] Diastolic blood pressure 2021-03-15 00:14:00 78 mm[Hg] [facility] Heart rate 2021-03-15 00:14:00 100 [facility] Body temperature 2021-03-15 00:14:00 37.33 Radha [facility] Respiratory rate 2021-03-15 00:14:00 24 /min [facility] Body height 2021-03-15 00:14:00 160 cm [facility] Body weight 2021-03-15 00:14:00 58.968 kg [facility] BMI 2021-03-15 00:14:00 23.03 kg/m2 [facility] Oxygen saturation in Arterial blood by Pulse oximetry 2021-03-15 00:14:00 98 /min [facility] Systolic blood pressure 2021-02-19 18:00:00 131 mm[Hg] [facility] Diastolic blood pressure 2021-02-19 18:00:00 80 mm[Hg] [facility] Heart rate 2021-02-19 18:00:00 83 /min [facility] Respiratory rate 2021-02-19 18:00:00 18 /min [facility] Oxygen saturation in Arterial blood by Pulse oximetry 2021-02-19 18:00:00 100 /min [facility] Body temperature 2021-02-19 15:47:00 37 Radha [facility] Body height 2021-02-19 15:47:00 160 cm [facility] Body weight 2021-02-19 15:47:00 58.968 kg [facility] BMI 2021-02-19 15:47:00 23.03 kg/m2 [facility] Heart rate 2023-09-08 08:54:00 118 /min [facility] Respiratory rate 2023-09-08 08:54:00 21 /min [facility] Oxygen saturation in Arterial blood by Pulse oximetry 2023-09-08 08:54:00 100 /min [facility] Systolic blood pressure 2023-09-08 08:32:00 110 mm[Hg] [facility] Diastolic blood pressure 2023-09-08 08:32:00 77 mm[Hg] [facility] Body temperature 2023-09-08 08:32:00 36.06 Radha [facility] Body height 2023-09-04 00:58:00 157.5 cm [facility] Body weight 2023-09-04 00:58:00 80 kg [facility] BMI 2023-09-04 00:58:00 32.26 kg/m2 [facility] Heart rate 2023-06-16 17:00:00 108 /min [facility] Systolic blood pressure 2023-06-16 15:31:00 101 mm[Hg] [facility] Diastolic blood pressure 2023-06-16 15:31:00 81 mm[Hg] [facility] Body temperature 2023-06-16 15:31:00 36.61 Radha [facility] Respiratory rate 2023-06-16 15:31:00 18 /min [facility] Oxygen saturation in Arterial blood by Pulse oximetry 2023-06-16 15:31:00 94 /min [facility] Body weight 2023-06-16 05:26:00 86.047 kg [facility] BMI 2023-06-16 05:26:00 33.60 kg/m2 [facility] Body height 2023-06-13 04:00:00 160 cm [facility] Systolic blood pressure 2023-06-04 13:02:00 93 mm[Hg] [facility] Diastolic blood pressure 2023-06-04 13:02:00 57 mm[Hg] [facility] Heart rate 2023-06-04 13:02:00 101 /min [facility] Respiratory rate 2023-06-04 13:02:00 22 /min [facility] Oxygen saturation in Arterial blood by Pulse oximetry 2023-06-04 13:02:00 95 /min room air [facility] Body temperature 2023-06-04 11:46:00 35.28 Radha [facility] Systolic blood pressure 2023-05-28 16:00:00 154 mm[Hg] [facility] Diastolic blood pressure 2023-05-28 16:00:00 82 mm[Hg] [facility] Heart rate 2023-05-28 16:00:00 89 /min [facility] Body temperature 2023-05-28 16:00:00 36.67 Radha [facility] Respiratory rate 2023-05-28 16:00:00 16 /min [facility] Oxygen saturation in Arterial blood by Pulse oximetry 2023-05-28 16:00:00 97 /min [facility] Body height 2023-05-28 07:00:00 157.5 cm [facility] Body weight 2023-05-28 07:00:00 87.544 kg [facility] BMI 2023-05-28 07:00:00 35.30 kg/m2 [facility] Body height 2023-05-26 09:12:00 157.5 cm [facility] Body weight 2023-05-26 09:12:00 87.091 kg [facility] BMI 2023-05-26 09:12:00 35.12 kg/m2 [facility] Respiratory rate 2023-04-02 16:35:00 18 /min [facility] Oxygen saturation in Arterial blood by Pulse oximetry 2023-04-02 16:35:00 98 /min [facility] Systolic blood pressure 2023-04-02 12:00:00 147 mm[Hg] [facility] Diastolic blood pressure 2023-04-02 12:00:00 97 mm[Hg] [facility] Heart rate 2023-04-02 12:00:00 106 /min [facility] Body temperature 2023-04-02 12:00:00 36.28 Radha [facility] Body height 2023-03-30 02:14:00 157.5 cm [facility] Body weight 2023-03-30 02:14:00 92.08 kg [facility] BMI 2023-03-30 02:14:00 37.13 kg/m2 [facility] Respiratory rate 2022-08-03 14:40:00 18 /min [facility] Systolic blood pressure 2022-08-03 12:13:00 112 mm[Hg] [facility] Diastolic blood pressure 2022-08-03 12:13:00 77 mm[Hg] [facility] Heart rate 2022-08-03 12:13:00 115 /min [facility] Oxygen saturation in Arterial blood by Pulse oximetry 2022-08-03 12:13:00 93 /min [facility] Body temperature 2022-08-03 12:00:00 36.83 Radha [facility] Body height 2022-08-02 21:52:00 160.2 cm [facility] Body weight 2022-08-02 21:52:00 95 kg [facility] BMI 2022-08-02 21:52:00 37.02 kg/m2 [facility] BP Systolic 2022-07-24 13:31:00 136 mm[Hg] [...] CT brain wo IV contrast 2024-08-24 00:00:00 [facility] XR FEMUR 2+ VW RIGHT 2024-08-10 10:28:08 Dipak Colindres [facility] XR HIP 2-3 VIEWS RIGHT 2024-08-10 10:27:46 Dipak Colindres [facility] UA WITH CULTURE IF INDICATED 2024-08-10 09:51:00 Dipak Colindres [facility] VALPROIC ACID LEVEL 2024-08-10 08:31:00 Prakash Eckert [facility] XR CHEST 1 VIEW 2024-08-10 07:18:37 Dipak Colindres [facility] XR PELVIS 1-2 VIEWS 2024-08-10 07:18:15 Dipak Colindres [facility] CT BRAIN WO IV CONTRAST 2024-08-10 06:06:00 Dipak Colindres [facility] CT CERVICAL SPINE WO IV CONTRAST 2024-08-10 06:06:00 Jens Dipak Dixon [facility] BASIC METABOLIC PANEL 2024-08-10 05:51:00 Jens Dipak Dixon [facility] HEPATIC FUNCTION PANEL 2024-08-10 05:51:00 Jens Dipak Dixon [facility] MAGNESIUM LEVEL 2024-08-10 05:51:00 Jens Dipak Dixon [facility] PHOSPHORUS LEVEL 2024-08-10 05:51:00 Jens Dipak Dixon [facility] TYPE AND SCREEN 2024-08-10 05:51:00 Jens Dipak Dixon [facility] COMPLETE BLOOD COUNT W/DIFF AND PLATELET 2024-08-10 05:51:00 Jens Dipak Dixon [facility] THROMBOELASTOGRAPH RAPID 2024-08-10 05:51:00 Jens Dipak Dixon [facility] COMPLETE BLOOD COUNT 2024-08-10 05:51:00 Jens Dipak Dixon [facility] AUTOMATED DIFFERENTIAL 2024-08-10 05:51:00 Jens Dipak Dixon [facility] POC GLUCOSE UNSOLICITED RESULTS 2024-08-10 05:33:00 Brooklynn Paige [facility] ECG 12 lead (arrhythmia) 2024-08-10 00:00:00 [facility] Urine Culture 2024-08-10 00:00:00 [facility] LACTIC ACID WHOLE BLOOD 2024-04-03 01:59:00 Chrissy Mohr [facility] BASIC METABOLIC PANEL (NA, K , CL, CO2, GLUCOSE, BUN, CREATININE, CA) 2024-04-03 01:58:00 Chrissy Mohr [facility] CBC WITH DIFF 2024-04-03 01:58:00 Tammy Chrissy [facility] N-TERMINAL PRO-BNP 2024-04-03 01:58:00 Tammy Chrissy [facility] EKG-12 LEAD 2024-01-13 04:42:14 Radha Wyatt [facility] TROPONIN I 2024-01-13 03:20:00 Radha Wyatt [facility] COMP. METABOLIC PANEL (36326) 2024-01-13 03:20:00 Radha Wyatt [facility] CBC WITH DIFF 2024-01-13 03:20:00 Radha Wyatt [facility] TRANSTHORACIC ECHO (TTE) LIMITED W/ DOPPLER, COLOR AND CONTRAST 2024-01-10 13:07:00 Darrick Fry [facility] MAGNESIUM 2024-01-10 09:16:00 Darrick Fry [facility] TROPONIN I 2024-01-10 09:16:00 Darrick Fry [facility] BASIC METABOLIC PANEL (NA, K , CL, CO2, GLUCOSE, BUN, CREATININE, CA) 2024-01-10 09:16:00 Darrick Fry [facility] LIPID PANEL (88542)(TOTAL CHOLESTEROL, TRIGLYCERIDES, HDL) 2024-01-10 09:16:00 Darrick Fry [facility] CBC WITH DIFF 2024-01-10 09:16:00 Darrick Fry [facility] PROTHROMBIN TIME / INR 2024-01-10 09:16:00 Darrick Fry [facility] ACTIVATED PARTIAL THRMPLAS DAVID 2024-01-10 09:16:00 Darrick Fry [facility] N-TERMINAL PRO-BNP 2024-01-10 09:16:00 Darrick Fry [facility] PHOSPHORUS 2024-01-10 04:58:00 Darrick Fry [facility] BLOOD CULTURE SCREEN 2024-01-10 02:39:00 Alfonso Alvarado [facility] BLOOD CULTURE SCREEN 2024-01-10 02:20:00 Alfonso Alvarado [facility] LACTIC ACID WHOLE BLOOD 2024-01-10 01:52:00 Alfonso Alvarado [facility] CT CHEST PULMONARY ANGIOGRAM 2024-01-09 23:59:01 Olena Doyle [facility] XR CHEST 1 VW 2024-01-09 21:49:00 Olena Doyle [facility] TROPONIN I 2024-01-09 21:39:00 Olena Doyle [facility] COMP. METABOLIC PANEL ([id number]) 2024-01-09 21:39:00 Abundio [facility] CBC WITH DIFF 2024-01-09 21:39:00 Abundio [facility] D-DIMER 2024-01-09 21:39:00 [facility] N-TERMINAL PRO-BNP 2024-01-09 21:39:00 Abundio [facility] HB ECG ROUTINE & RHYTHM STRIP 2024-01-09 21:13:02 Susannaitz [facility] POCT GLUCOSE (AUTOMATED) 2023-12-15 12:43:00 Reema [facility] MAGNESIUM 2023-12-15 10:26:00 Reema [facility] TROPONIN I 2023-12-15 10:26:00 Reema [facility] BASIC METABOLIC PANEL (NA, K , CL, CO2, GLUCOSE, BUN, CREATININE, CA) 2023-12-15 10:26:00 Reema [facility] CBC WITH DIFF 2023-12-15 10:26:00 Daria [facility] N-TERMINAL PRO-BNP 2023-12-15 10:26:00 Reema [facility] TROPONIN I 2023-12-15 03:21:00 Reema [facility] FREE T4 2023-12-15 03:21:00 Reema [facility] DIGOXIN 2023-12-15 03:21:00 Daria [facility] POCT GLUCOSE (AUTOMATED) 2023-12-15 00:56:00 Reema [facility] TROPONIN I 2023-12-14 21:05:00 Mj Bryan [facility] THYROID STIMULATING HORMONE 2023-12-14 21:05:00 Reema [facility] FREE T3 2023-12-14 21:05:00 Reema [facility] XR CHEST 1 VW 2023-12-14 19:25:00 Singer [facility] TROPONIN I 2023-12-14 19:19:00 Singer [facility] COMP. METABOLIC PANEL ([id number]) 2023-12-14 19:19:00 Singer [facility] CBC WITH DIFF 2023-12-14 19:19:00 Singer [facility] D-DIMER 2023-12-14 19:19:00 Singer [facility] N-TERMINAL PRO-BNP 2023-12-14 19:19:00 Singer [facility] EKG-12 LEAD 2023-12-14 18:38:57 Tal Benavidez [facility] POCT GLUCOSE (AUTOMATED) 2023-12-03 21:23:00 Connor Renee [facility] BASIC METABOLIC PANEL (NA, K , CL, CO2, GLUCOSE, BUN, CREATININE, CA) 2023-12-03 17:58:00 Mukesh Tabor [facility] POCT GLUCOSE (AUTOMATED) 2023-12-03 16:51:00 Connor Renee [facility] POCT GLUCOSE (AUTOMATED) 2023-12-03 13:00:00 Connor Renee [facility] MAGNESIUM 2023-12-03 09:21:00 Ginny [facility] HEPATIC FUNCTION PANEL (27938) (ALB,T.PRO,BILI T,BU/BC,ALT,AST,ALK PHOS) 2023-12-03 09:21:00 Mariaelena Gross [facility] BASIC METABOLIC PANEL (NA, K , CL, CO2, GLUCOSE, BUN, CREATININE, CA) 2023-12-03 09:21:00 Ginny [facility] AC PANEL 21 + LACTIC ACID 2023-12-03 01:45:00 Ginny [facility] MRSA / MSSA SCREEN BY PCRRED 2023-12-03 01:45:[address] [facility] [address] CHEST PULMONARY ANGIOGRAM 2023-12-02 19:32:14 Connor Renee [facility] XR CHEST 1 VW 2023-12-02 19:04:00 Connor Renee [facility] BLOOD CULTURE SCREEN 2023-12-02 18:53:00 Connor Renee [facility] TROPONIN I 2023-12-02 18:53:00 Connor Renee [facility] COMP. METABOLIC PANEL ([id number]) 2023-12-02 18:53:00 Connor Renee [facility] CBC WITH DIFF 2023-12-02 18:53:00 Connor Renee [facility] RAPID INFLUENZA A/B 2023-12-02 18:53:00 Connor Renee [facility] N-TERMINAL PRO-BNP 2023-12-02 18:53:00 Connor Renee [facility] COVID-19 (ID NOW RAPID TESTING) 2023-12-02 18:53:00 Connor Renee [facility] BLOOD CULTURE SCREEN 2023-12-02 18:49:00 Connor Renee [facility] AC ABG + LACTIC ACID 2023-12-02 18:26:00 Connor Renee [facility] HB ECG ROUTINE & RHYTHM STRIP 2023-12-02 18:06:10 Connor Renee [facility] POCT GLUCOSE (AUTOMATED) 2023-11-28 16:40:00 Cr Fry [facility] PHOSPHORUS 2023-11-28 09:22:00 Leander [facility] MAGNESIUM 2023-11-28 09:22:00 Tabor, [facility] COMP. METABOLIC PANEL ([id number]) 2023-11-28 09:22:00 Leander [facility] CBC WITH DIFF 2023-11-28 09:22:00 Leander [facility] N-TERMINAL PRO-BNP 2023-11-28 09:22:00 Torrey Baez [facility] POCT GLUCOSE (AUTOMATED) 2023-11-28 01:31:00 Al Hemyari, [facility] POCT GLUCOSE (AUTOMATED) 2023-11-27 21:45:00 Lorenzo Urielrosalie [facility] POCT GLUCOSE (AUTOMATED) 2023-11-27 16:30:00 Lorenzo Urielrosalie [facility] POCT GLUCOSE (AUTOMATED) 2023-11-27 12:39:00 Lorenzo Ventura [facility] LACTIC ACID WHOLE BLOOD 2023-11-27 06:35:00 Tabor [facility] MAGNESIUM 2023-11-27 06:34:00 [place], [facility] COMP. METABOLIC PANEL ([id number]) 2023-11-27 06:34:00 Leander [facility] URINE DRUG (IMMUNOASSAY) - COMPREHENSIVE DRUG SCREEN 2023-11-27 03:59:00 T[place], [facility] POCT GLUCOSE (AUTOMATED) 2023-11-27 02:25:00 Lorenzo Ventura [facility] CT HEAD WO CONTRAST 2023-11-26 21:56:31 T[place], [facility] MAGNESIUM 2023-11-26 21:32:00 T[place], [facility] COMP. METABOLIC PANEL ([id number]) 2023-11-26 21:32:00 Leander [facility] POCT GLUCOSE (AUTOMATED) 2023-11-26 21:11:00 Lorenzo Ventura [facility] VALPROIC ACID, FREE 2023-11-26 18:07:00 Tabor [facility] KEPPRA (LEVETIRACETAM) 2023-11-26 18:07:00 Tabor [facility] LACTIC ACID WHOLE BLOOD 2023-11-26 18:07:00 Tabor [facility] POCT GLUCOSE (AUTOMATED) 2023-11-26 17:05:00 Lorenzo Ventura [facility] MAGNESIUM 2023-11-26 13:28:00 Raghu Castellanos [facility] VITAMIN B12, LEVEL 2023-11-26 13:28:00 Tabor [facility] FOLATE 2023-11-26 13:28:00 Tabor [facility] COMP. METABOLIC PANEL ([id number]) 2023-11-26 13:28:00 Raghu Castellanos [facility] CBC WITH DIFF 2023-11-26 13:28:00 Leander [facility] LACTIC ACID WHOLE BLOOD 2023-11-26 09:52:00 Robinson Shin [facility] POCT GLUCOSE (AUTOMATED) 2023-11-26 02:13:00 Lorenzo Hemrosalie [facility] LACTIC ACID WHOLE BLOOD 2023-11-26 00:53:00 Raghu Castellanos [facility] ELECTROENCEPHALOGRAM 2023-11-26 00:00:00 Leander [facility] POCT GLUCOSE (AUTOMATED) 2023-11-25 20:59:00 Lorenzo Ventura [facility] LACTIC ACID WHOLE BLOOD 2023-11-25 20:56:00 Raghu Castellanos [facility] MAGNESIUM 2023-11-25 20:55:00 Raghu Castellanos [facility] COMP. METABOLIC PANEL ([id number]) 2023-11-25 20:55:00 Raghu Castellanos [facility] POCT GLUCOSE (AUTOMATED) 2023-11-25 16:58:00 Lorenzo Ventura [facility] POCT GLUCOSE (AUTOMATED) 2023-11-25 13:04:00 Lorenzo Ventura [facility] LACTIC ACID WHOLE BLOOD 2023-11-25 09:25:00 Jessica [facility] MAGNESIUM 2023-11-25 09:24:00 Raghu Castellanos [facility] COMP. METABOLIC PANEL ([id number]) 2023-11-25 09:24:00 Jessica Nestor [facility] CBC WITH DIFF 2023-11-25 09:24:00 Leander [facility] MAGNESIUM 2023-11-25 04:52:00 Leander [facility] COMP. METABOLIC PANEL ([id number]) 2023-11-25 04:52:00 Leander [facility] LACTIC ACID WHOLE BLOOD 2023-11-25 04:52:00 Leander [facility] POCT GLUCOSE (AUTOMATED) 2023-11-25 03:00:00 Lorenzo Ventura [facility] TROPONIN I 2023-11-25 02:59:00 [facility] METABOLIC PANEL ([id number]) 2023-11-25 02:59:00 Nestor Lopez [facility] HIV 1/2 AG-AB WITH REFLEX 2023-11-25 02:59[facility] PELVIS W CONTRAST 2023-11-24 22:24:00 Leander [facility] POCT GLUCOSE (AUTOMATED) 2023-11-24 21:21:00 Lorenzo Ventura [facility] MAGNESIUM 2023-11-24 21:08:00 Leander [facility] COMP. METABOLIC PANEL ([id number]) 2023-11-24 21:08:00 Leander [facility] LACTIC ACID WHOLE BLOOD 2023-11-24 21:08:00 Jessica [facility] POCT GLUCOSE (AUTOMATED) 2023-11-24 17:43:00 Lorenzo Ventura [facility] POCT GLUCOSE (AUTOMATED) 2023-11-24 17:43:00 Lorenzo Ventura [facility] MAGNESIUM 2023-11-24 15:47:00 Leander [facility] COMP. METABOLIC PANEL ([id number]) 2023-11-24 15:47:00 [place], [facility] ACTIVATED PARTIAL THRMPLAS DAVID 2023-11-24 15:47:00 Uli [facility] LACTIC ACID WHOLE BLOOD 2023-11-24 15:47:00 [place], [facility] MAGNESIUM 2023-11-24 15:47:00 Leander [facility] COMP. METABOLIC PANEL ([id number]) 2023-11-24 15:47:00 [place], [facility] ACTIVATED PARTIAL THRMPLAS DAVID 2023-11-24 15:47:00 Uli [facility] LACTIC ACID WHOLE BLOOD 2023-11-24 15:47:00 [place], [facility] POCT GLUCOSE (AUTOMATED) 2023-11-24 12:33:00 Lorenzo Ventura [facility] POCT GLUCOSE (AUTOMATED) 2023-11-24 12:33:00 Lorenzo Hemrosalie [facility] MAGNESIUM 2023-11-24 10:03:00 [place], [facility] COMP. METABOLIC PANEL ([id number]) 2023-11-24 10:03:00 T[place], [facility] CBC WITH DIFF 2023-11-24 10:03:00 T[place], [facility] LACTIC ACID WITH 3 HOUR REFLEX 2023-11-24 10:03:00 T[place], [facility] MAGNESIUM 2023-11-24 10:03:00 T[place], [facility] COMP. METABOLIC PANEL ([id number]) 2023-11-24 10:03:00 Tabor, [facility] CBC WITH DIFF 2023-11-24 10:03:00 [place], [facility] LACTIC ACID WITH 3 HOUR REFLEX 2023-11-24 10:03:00 [place], [facility] ACTIVATED PARTIAL THRMPLAS DAVID 2023-11-24 06:13:00 Uli [facility] ACTIVATED PARTIAL THRMPLAS DAVID 2023-11-24 06:13:00 Uli [facility] POCT GLUCOSE (AUTOMATED) 2023-11-24 03:15:00 Lorenzo Ventura [facility] POCT GLUCOSE (AUTOMATED) 2023-11-24 03:15:00 Lorenzo Ventura [facility] ACTIVATED PARTIAL THRMPLAS DAVID 2023-11-23 23:09:00 Uli [facility] ACTIVATED PARTIAL THRMPLAS DAVID 2023-11-23 23:09:00 Uli [facility] POCT GLUCOSE (AUTOMATED) 2023-11-23 21:28:00 Lorenzo Ventura [facility] POCT GLUCOSE (AUTOMATED) 2023-11-23 21:28:00 Lorenzo Ventura [facility] CATH PROCEDURE LOG 2023-11-23 20:38:36 Lisandra [facility] CATH PROCEDURE LOG 2023-11-23 20:38:36 Fry [facility] CARDIAC CATHETERIZATION 2023-11-23 20:11:00 Fry [facility] CARDIAC CATHETERIZATION 2023-11-23 20:11:00 Fry [facility] CARDIAC CATHETERIZATION 2023-11-23 20:11:00 Lisandra [facility] CARDIAC CATHETERIZATION 2023-11-23 20:11:00 Lisandra [facility] POCT GLUCOSE (AUTOMATED) 2023-11-23 17:18:00 Lorenzo Ventura [facility] POCT GLUCOSE (AUTOMATED) 2023-11-23 17:18:00 Lorenzo Ventura [facility] POCT GLUCOSE (AUTOMATED) 2023-11-23 16:50:00 Lorenzo Ventura [facility] POCT GLUCOSE (AUTOMATED) 2023-11-23 16:50:00 Lorenzo Ventura [facility] ACTIVATED PARTIAL THRMPLAS DAVID 2023-11-23 15:13:00 Uli [facility] ACTIVATED PARTIAL THRMPLAS DAVID 2023-11-23 15:13:00 Uli [facility] LACTIC ACID WHOLE BLOOD 2023-11-23 15:12:00 Aleida [facility] LACTIC ACID WHOLE BLOOD 2023-11-23 15:12:00 Robinson Shin [facility] POCT GLUCOSE (AUTOMATED) 2023-11-23 12:47:00 Lorenzo Ventura [facility] POCT GLUCOSE (AUTOMATED) 2023-11-23 12:47:00 Lorenzo Ventura [facility] MAGNESIUM 2023-11-23 07:52:00 Janeth Gil [facility] HEPATIC FUNCTION PANEL ([id number]) (ALB,T.PRO,BILI T,BU/BC,ALT,AST,ALK PHOS) 2023-11-23 07:52:00 [place], [facility] BASIC METABOLIC PANEL (NA, K , CL, CO2, GLUCOSE, BUN, CREATININE, CA) 2023-11-23 07:52:00 Louise [facility] CBC WITH DIFF 2023-11-23 07:52:00 iont [facility] ACTIVATED PARTIAL THRMPLAS DAVID 2023-11-23 07:52:00 [facility] 2023-11-23 07:52:00 [facility] 2023-11-23 07:52:00 Louise [facility] HEPATIC FUNCTION PANEL ([id number]) (ALB,T.PRO,BILI T,BU/BC,ALT,AST,ALK PHOS) 2023-11-23 07:52:00 Leander [facility] BASIC METABOLIC PANEL (NA, K , CL, CO2, GLUCOSE, BUN, CREATININE, CA) 2023-11-23 07:52:00 Louise [facility] CBC WITH DIFF 2023-11-23 07:52:00 Louise [facility] ACTIVATED PARTIAL THRMPLAS DAVID 2023-11-23 07:52:00 [facility] L[facility] WHOLE [facility]LOOD 2023-11-23 07:52:00 [facility] 2023-11-23 05:00:00 [facility] LACTIC ACID WHOLE BLOOD 2023-11-23 05:00:00 Aleida [facility] LACTIC ACID WHOLE BLOOD 2023-11-23 03:12:00 Aleida [facility] LACTIC ACID WHOLE BLOOD 2023-11-23 03:12:00 Aleida [facility] LACTIC ACID WHOLE BLOOD 2023-11-23 00:57:00 Aleida [facility] LACTIC ACID WHOLE BLOOD 2023-11-23 00:57:00 Aleida [facility] POCT GLUCOSE (AUTOMATED) 2023-11-23 00:56:00 Al Hemyari, [facility] POCT GLUCOSE (AUTOMATED) 2023-11-23 00:56:00 Lorenzo Audrey [facility] LACTIC ACID WHOLE BLOOD 2023-11-22 23:49:00 [facility] LACTIC ACID WHOLE BLOOD 2023-11-22 23:49:00 [facility] ([facility]OMATED) 2023-11-22 21:49:00 Lorenzo Hemrosalie [facility] POCT GLUCOSE (AUTOMATED) 2023-11-22 21:49:00 Lorenzo Urielrosalie [facility] LACTIC ACID WHOLE BLOOD 2023-11-22 21:41:00 Leander [facility] LACTIC ACID WHOLE BLOOD 2023-11-22 21:41:00 Leander [facility] POCT GLUCOSE (AUTOMATED) 2023-11-22 21:01:00 Lorenzo Sissydianna [facility] POCT GLUCOSE (AUTOMATED) 2023-11-22 21:01:00 Lorenzo Urielrosalie [facility] ACTIVATED PARTIAL THRMPLAS DAVID 2023-11-22 19:46:00 Uli [facility] LACTIC ACID WHOLE BLOOD 2023-11-22 19:46:00 Leander [facility] ACTIVATED PARTIAL THRMPLAS DAVID 2023-11-22 19:46:00 Uli [facility] LACTIC ACID WHOLE BLOOD 2023-11-22 19:46:00 Leander [facility] LACTIC ACID WHOLE BLOOD 2023-11-22 17:22:00 Faby [facility] LACTIC ACID WHOLE BLOOD 2023-11-22 17:22:00 Faby [facility] POCT GLUCOSE (AUTOMATED) 2023-11-22 17:00[facility]00 [facility] 2023-11-22 17:00:00 Madeline Pierre [facility] LOWER EXTREMITY ARTERIAL DUPLEX BILATERAL - BY VASCULAR LAB 2023-11-22 16:43:47 Eric Hobbs [facility] LOWER EXTREMITY ARTERIAL DUPLEX BILATERAL - BY VASCULAR LAB 2023-11-22 16:43:47 Faby [facility] TRANSTHORACIC ECHO (TTE) COMPLETE W/ CONTRAST 2023-11-22 15:50:00 Uli [facility] TRANSTHORACIC ECHO (TTE) COMPLETE W/ CONTRAST 2023-11-22 15:50:00 [facility] 2023-11-22 14:54:18 [facility] 2023-11-22 14:54:18 Faby [facility] HB ECG ROUTINE & RHYTHM STRIP 2023-11-22 14:28:42 Louise [facility] HB ECG ROUTINE & RHYTHM STRIP 2023-11-22 14:28:42 Louise [facility] COMP. METABOLIC PANEL ([id number]) 2023-11-22 14:26:00 Uli [facility] IRON PANEL 2023-11-22 14:26:00 Uli [facility] LACTIC ACID WHOLE BLOOD 2023-11-22 14:26:00 Faby [facility] COMP. METABOLIC PANEL ([id number]) 2023-11-22 14:26:00 Uli [facility] IRON PANEL 2023-11-22 14:26:00 Uli [facility] LACTIC ACID WHOLE BLOOD 2023-11-22 14:26:00 Faby [facility] POCT GLUCOSE (AUTOMATED) 2023-11-22 13:26:00 Ignacio [facility] POCT GLUCOSE (AUTOMATED) 2023-11-22 13:26:00 Madeline Pierre [facility] CT CHEST PULMONARY ANGIOGRAM 2023-11-22 13:10:[address] [facility] [address] CHEST PULMONARY ANGIOGRAM 2023-11-22 13:10:36 Uli [facility] PHOSPHORUS 2023-11-22 11:45:00 Uli [facility] CREATINE KINASE 2023-11-22 11:45:00 Louise [facility] FERRITIN SERUM 2023-11-22 11:45:00 Uli [facility] TROPONIN I 2023-11-22 11:45:00 Uli [facility] LIPID PANEL ([id number])(TOTAL CHOLESTEROL, TRIGLYCERIDES, HDL) 2023-11-22 11:45:00 Uli [facility] CBC WITH DIFF 2023-11-22 11:45:00 Uli [facility] GLYCOSYLATED HEMOGLOBIN (A1C) 2023-11-22 11:45:00 Uli [facility] PHOSPHORUS 2023-11-22 11:45:00 Uli [facility] CREATINE KINASE 2023-11-22 11:45:00 Louise [facility] FERRITIN SERUM 2023-11-22 11:45:00 Uli [facility] TROPONIN I 2023-11-22 11:45:00 Uli [facility] LIPID PANEL ([id number])(TOTAL CHOLESTEROL, TRIGLYCERIDES, HDL) 2023-11-22 11:45:00 Uli [facility] CBC WITH DIFF 2023-11-22 11:45:00 Uli [facility] GLYCOSYLATED HEMOGLOBIN (A1C) 2023-11-22 11:45:00 Uli [facility] BLOOD CULTURE SCREEN 2023-11-22 09:37:00 Uli [facility] BLOOD CULTURE SCREEN 2023-11-22 09:37:00 Uli [facility] BLOOD CULTURE SCREEN 2023-11-22 09:36:00 Uli, [facility] BLOOD CULTURE SCREEN 2023-11-22 09:36:00 Uli [facility] LOWER EXTREMITY VEIN WITH COMPRESSION BILATERAL (ONLY FOR RULE OUT DVT) 2023-11-22 08:09:01 Uli [facility] US LOWER EXTREMITY VEIN WITH COMPRESSION BILATERAL (ONLY FOR RULE OUT DVT) 2023-11-22 08:09:01 Uli [facility] LACTIC ACID WHOLE BLOOD 2023-11-22 08:03:00 Uli, [facility] LACTIC ACID WHOLE BLOOD 2023-11-22 08:03:00 Uli, [facility] MAGNESIUM 2023-11-22 08:02:00 Uli, [facility] TROPONIN I 2023-11-22 08:02:00 Uli, [facility] PROTHROMBIN TIME / INR 2023-11-22 08:02:00 Uli, [facility] D-DIMER 2023-11-22 08:02:00 Uli, [facility] ACTIVATED PARTIAL THRMPLAS DAVID 2023-11-22 08:02:00 Uli, [facility] PROCALCITONIN 2023-11-22 08:02:00 Uli, [facility] MAGNESIUM 2023-11-22 08:02:00 Uli, [facility] TROPONIN I 2023-11-22 08:02:00 Uli, [facility] PROTHROMBIN TIME / INR 2023-11-22 08:02:00 Uli, [facility] D-DIMER 2023-11-22 08:02:00 Uli, [facility] ACTIVATED PARTIAL THRMPLAS DAVID 2023-11-22 08:02:00 Uil, [facility] PROCALCITONIN 2023-11-22 08:02:00 Uli, [facility] XR SHOULDER 2+ VW RIGHT 2023-11-22 07:33:00 Uli, [facility] XR SHOULDER 2+ VW RIGHT 2023-11-22 07:33:00 Uli, [facility] URINALYSIS 2023-11-22 04:33:00 Megan Rondon [facility] URINE DRUG (IMMUNOASSAY) - COMPREHENSIVE DRUG SCREEN W/O REFLEX 2023-11-22 04:33:00 Megan Rondon [facility] URINALYSIS 2023-11-22 04:33:00 Megan Rondon [facility] URINE DRUG (IMMUNOASSAY) - COMPREHENSIVE DRUG SCREEN W/O REFLEX 2023-11-22 04:33:00 Megan Rondon [facility] PROTHROMBIN TIME / INR 2023-11-22 04:25:00 Megan Rondon [facility] ACTIVATED PARTIAL THRMPLAS DAVID 2023-11-22 04:25[facility] 2023-11-22 04:25:00 Megan Rondon [facility] ACTIVATED PARTIAL THRMPLAS DAVID 2023-11-22 04:25:00 Megan Rondon [facility] CRITICAL CARE 2023-11-22 04:18:14 Megan Rondon [facility] CRITICAL CARE 2023-11-22 04:18:14 [facility] 2023-11-22 02:57:00 [facility]IM[facility] HORMONE 2023-11-22 02:57:[address] [facility] RAPID INFLUENZA A/B 2023-11-22 02:57:[address] [facility] COVID-19 (ID NOW RAPID TESTING) 2023-11-22 02:57:[address] [facility] LAB ONLY COVID INTERPRETATION 2023-11-22 02:57:00 [facility] 2023-11-22 02:57:00 [facility]RO[facility] HORMONE 2023-11-22 02:57:[address] [facility] RAPID INFLUENZA A/B 2023-11-22 02:57:[address] [facility] COVID-19 (ID NOW RAPID TESTING) 2023-11-22 02:57:00 [facility] COVID INTERPRETATION 2023-11-22 02:57:00 [facility] AMYLASE 2023-11-22 02:52:00 Megan Rondon [facility] LIPASE 2023-11-22 02:52:00 [facility] TROPONIN [facility] 2023-11-22 02:52:00 [facility] COMP. METABOLIC PANEL ([id number]) 2023-11-22 02:52:00 Megan Rondon [facility] CBC WITH DIFF 2023-11-22 02:52:00 [facility] N-TERMINAL PRO-BNP 2023-11-22 02:52:00 Megan Rondon [facility] AMYLASE 2023-11-22 02:52:00 Megan Rondon [facility] LIPASE 2023-11-22 02:52:00 Megan Rondon [facility] TROPONIN I 2023-11-22 02:52:00 Megan Rondon [facility] COMP. METABOLIC PANEL ([id number]) 2023-11-22 02:52:00 [facility] WITH DIFF 2023-11-22 02:52[facility]00 [facility] N-TERMINAL PRO-BNP 2023-11-22 02:52:00 [facility]ST 1 VW 2023-11-22 02:34:13 [facility]ST 1 VW 2023-11-22 02:34:13 Megan Rondon [facility] HB ECG ROUTINE & RHYTHM STRIP 2023-11-22 02:16:24 [facility] 2023-11-18 18:34:06 Doctor Unassigned, [place] [facility] RADIOLOGY DOCUMENTATION 2023-11-05 19:18:01 Doctor Unassigned, [place] [facility] POCT-GLUCOSE METER 2023-09-08 08:40:00 Bud [facility] CBC W/PLT COUNT & AUTO DIFFERENTIAL 2023-09-08 [facility]23-09-08 [facility]23-09-08 04:16:00 [facility] PHOSPHORUS 2023-09-08 04:16[facility] W/[facility] & AUTO DIFFERENTIAL 2023-09-08 04:16[facility]00 [facility] POCT-GLUCOSE METER 2023-09-07 21:29:00 Bud [facility] XR KNEE 3 VIEWS LEFT 2023-09-07 19:21:02 Bud [facility] VENOUS DOPPLER LEGS BILATERAL 2023-09-07 12:45:00 Joshua [facility] CBC W/PLT COUNT & AUTO DIFFERENTIAL 2023-09-07 03:17:00 Joshua [facility] BASIC METABOLIC PANEL 2023-09-07 03:17:00 Joshua [facility] MAGNESIUM 2023-09-07 03:17:00 Joshua [facility] PHOSPHORUS 2023-09-07 03:17:00 Joshua [facility] CBC W/PLT COUNT & AUTO DIFFERENTIAL 2023-09-07 03:17:00 Joshua [facility] POCT-GLUCOSE METER 2023-09-06 21:17:00 Bud [facility] POCT-GLUCOSE METER 2023-09-06 18:37:00 Bud [facility] POCT-GLUCOSE METER 2023-09-06 13:16:00 Bud [facility] POCT-GLUCOSE METER 2023-09-06 08:21:00 Bud [facility] CBC W/PLT COUNT & AUTO DIFFERENTIAL 2023-09-06 04:49:00 Joshua [facility] BASIC METABOLIC PANEL 2023-09-06 04:49:00 Joshua [facility] MAGNESIUM 2023-09-06 04:49:00 Joshua [facility] PHOSPHORUS 2023-09-06 04:49:00 Joshua [facility] CBC W/PLT COUNT & AUTO DIFFERENTIAL 2023-09-06 04:49:00 Joshua [facility] POCT-GLUCOSE METER 2023-09-05 21:24:00 Bud [facility] MR BRAIN WITH & WITHOUT IV CONTRAST 2023-09-05 11:25:07 Sandi Aleman [facility] POCT-GLUCOSE METER 2023-09-05 08:10:00 Bud [facility] CBC W/PLT COUNT & AUTO DIFFERENTIAL 2023-09-05 04:44:00 Joshua [facility] BASIC METABOLIC PANEL 2023-09-05 04:44:00 Joshua [facility] MAGNESIUM 2023-09-05 04:44:00 Joshua [facility] PHOSPHORUS 2023-09-05 04:44:00 Joshua [facility] POCT-GLUCOSE METER 2023-09-05 04:44:00 Lisandra [facility] CBC W/PLT COUNT & AUTO DIFFERENTIAL 2023-09-05 04:44:00 Joshua [facility] POCT-GLUCOSE METER 2023-09-04 21:38:00 Lisandra [facility] POCT-GLUCOSE METER 2023-09-04 15:42:00 [facility]OV[facility]/INFLUENZA/RSV RT-PCR 2023-09-04 11:25:00 [facility] POCT-GLUCOSE METER 2023-09-04 10:53:00 [facility] POCT-GLUCOSE METER 2023-09-04 08:04:00 [facility] PROCALCITONIN 2023-09-04 06:56:00 [facility] IRON, TIBC, % SAT. (WITHOUT FERRITIN) 2023-09-04 06:56:00 [facility] FERRITIN 2023-09-04 06:56:00 [facility] BLOOD CULTURE 2023-09-04 06:37:00 [facility] LUMBAR SPINE WITHOUT IV CONTRAST 2023-09-04 05:47:25 Melvi [facility] MR THORACIC SPINE WITHOUT IV CONTRAST 2023-09-04 04:53:00 Mel[facility] MR CERVICAL SPINE WITHOUT IV CONTRAST 2023-09-04 04:18:[address] [facility] [address] THORACIC SPINE WITHOUT IV CONTRAST 2023-09-04 03:08:00 [facility] CT LUMBAR SPINE WITHOUT IV CONTRAST 2023-09-04 03:08:00 [facility] LACTIC ACID, VENOUS 2023-09-04 01:42:00 [facility] TYPE AND SCREEN, AUTOMATED 2023-09-04 01:42:00 [facility] CBC W/PLT COUNT & AUTO DIFFERENTIAL 2023-09-04 00:51:00 [facility] COMPREHENSIVE METABOLIC PANEL 2023-09-04 00:51:00 Mel[facility] MAGNESIUM 2023-09-04 00:51:00 [facility] PHOSPHORUS 2023-09-04 00:51:00 [facility] PROTHROMBIN TIME/INR 2023-09-04 00:51:00 [facility] APTT 2023-09-04 00:51:00 [facility] B-TYPE NATRIURETIC FACTOR (BNP) 2023-09-04 00:51:00 [facility] URINALYSIS WITHOUT MICROSCOPIC 2023-09-04 00:51:00 [facility] RAPID DRUG SCREEN, URINE 2023-09-04 00:51:00 [facility] D-DIMER 2023-09-04 00:51:00 London Loyola [facility] FIBRINOGEN 2023-09-04 00:51:00 [facility] CBC W/PLT COUNT & AUTO DIFFERENTIAL 2023-09-04 00:51:00 [facility] EKG-SCANNED 2023-09-04 00:00:00 ProviderEliceo [facility] LACTIC ACID WHOLE BLOOD 2023-08-12 20:31:00 Mj Bryan [facility] COMP. METABOLIC PANEL (28195) 2023-08-12 20:29:00 Mj Bryan [facility] CBC WITH DIFF 2023-08-12 20:29:00 Mj Bryan [facility] CONSENT/REFUSAL FOR DIAGNOSI S AND TREATMENT 2023-08-12 19:43:16 Doctor Unassigned, [place] [facility] TRANSESOPHAGEAL ECHO 2023-06-16 11:05:00 Torrey [facility] T SPOT TB 2023-06-15 04:51:00 Rossy [facility] FUNGITELL R B-D-GLUCAN WITH REFLEX TO TITER 2023-06-15 04:51:00 Rossy [facility] ASPERGILLUS GALACTOMANNAN ANTIGEN 2023-06-15 04:51:00 [facility] VANCOMYCIN LEVEL, TROUGH 2023-06-15 04:51:00 Kaylene Mendosa [facility] T-SPOT(R).TB ([facility]) 2023-06-15 04:27:00 Provider, Not In System [facility] T-SPOT(R).TB ([facility]) 2023-06-15 04:27:00 System, Provider Not In [facility] ECHO W CONTRAST & DOPPLER 2023-06-14 09:22:00 [facility] HEMOGLOBIN A1C 2023-06-14 04:08:00 Marianela Collazo [facility] CBC (HEMOGRAM ONLY) 2023-06-14 04:08:00 [facility] BASIC METABOLIC PANEL 2023-06-14 04:08:00 [facility] CRYPTOCOCCAL ANTIGEN 2023-06-13 17:21:00 [facility] W/HIV-1&2 AB 2023-06-13 17:21:00 Rossy deisyky Raul [facility] VENOUS DOPPLER ARM, LEFT 2023-06-13 17:20:00 Marianela Collazo [facility] LEGIONELLA ANTIGEN, URINE 2023-06-13 17:00:00 [facility] SPUTUM CULTURE + GRAM STAIN 2023-06-13 14:33:00 Arif, [facility] MR LUMBAR SPINE WITH & WITHOUT IV CONTRAST 2023-06-13 13:03:47 Burt Nelson [facility] ECG 12-LEAD 2023-06-13 11:47:02 Abbi [facility] ECG 12-LEAD 2023-06-13 11:47:02 Unknown, Hl7 Doctor [facility] MRSA SCREEN 2023-06-13 09:19:00 Abbi [facility] CBC W/PLT COUNT & AUTO DIFFERENTIAL 2023-06-13 06:03:00 [facility] COMPREHENSIVE METABOLIC PANEL 2023-06-13 06:03:00 DodieMarianela richardson [facility] PROTHROMBIN TIME/INR 2023-06-13 06:03:00 [facility] CREATINE KINASE (CK) 2023-06-13 06:03:00 Abbi [facility] CBC W/PLT COUNT & AUTO DIFFERENTIAL 2023-06-13 06:03:00 [facility] BLOOD CULTURE 2023-06-13 06:02:00 Marianela Collazo [facility] CBC W/PLT COUNT & AUTO DIFFERENTIAL 2023-06-02 04:41:00 Kimberley [facility] BASIC METABOLIC PANEL 2023-06-02 04:41:00 Sunil Chu [facility] MAGNESIUM 2023-06-02 04:41:00 Sunil Chu [facility] PHOSPHORUS 2023-06-02 04:41:00 Snuil Chu [facility] CBC W/PLT COUNT & AUTO DIFFERENTIAL 2023-06-02 04:41:00 Kimber[facility] XR SPINE LUMBAR 1 VIEW 2023-06-01 10:31:00 [facility] XR SPINE LUMBAR 1 VIEW 2023-06-01 09:46:00 [facility] LAMINECTOMY, SPINE, LUMBAR 2023-06-01 09:10:00 [facility] PROCEDURE W/ C-ARM 2023-06-01 09:10:00 [facility] LAMINECTOMY, SPINE, LUMBAR 2023-06-01 07:30:00 Hibernia [facility] PROCEDURE W/ C-ARM 2023-06-01 07:30:00 [facility] SCREEN, URINE 2023-06-01 04:33:00 [facility] BASIC METABOLIC PANEL 2023-05-31 22:55:00 Dallas Gomez [facility] CBC W/PLT COUNT & AUTO DIFFERENTIAL 2023-05-31 22:55:00 Patricia [facility] PT/APTT 2023-05-31 22:55:00 Dallas Gomez [facility] CBC W/PLT COUNT & AUTO DIFFERENTIAL 2023-05-31 22:55:00 Dallas Gomez [facility] CT NECK SOFT TISSUE WITHOUT IV CONTRAST 2023-05-31 09:39:30 [facility] TYPE AND SCREEN, AUTOMATED 2023-05-31 09:13:00 [facility] BASIC METABOLIC PANEL 2023-05-29 06:43:00 [facility] CBC W/PLT COUNT & AUTO DIFFERENTIAL 2023-05-29 06:43:00 [facility] CBC W/PLT COUNT & AUTO DIFFERENTIAL 2023-05-29 06:43:00 [facility] XR SPINE CERVICAL 2 OR 3 VIEWS 2023-05-28 18:57:00 [facility] FL FLUORO NON-SPECIFIC UP TO 1 HOUR 2023-05-28 10:48:00 [facility] FL FLUORO NON-SPECIFIC UP TO 1 HOUR 2023-05-28 10:07:00 [facility] DISCECTOMY, SPINE, CERVICAL, ANTERIOR APPROACH, WITH FUSION 2023-05-28 08:15:00 Jose [facility] INSERTION, HARDWARE, SPINAL 2023-05-28 08:15:00 Jose [facility] PROCEDURE, ALLOGRAFT, FOR SPINE SURGERY 2023-05-28 08:15:00 Jose [facility] AUTOGRAFT FOR SPINE SURGERY 2023-05-28 08:15:00 Adam Garcia [facility] PROCEDURE W/ C-ARM 2023-05-28 08:15:00 [facility] NEUROPHYSIOLOGIC MONITORING, INTRAOPERATIVE 2023-05-28 08:15:00 [facility] PROCEDURE, USING OPERATING MICROSCOPE 2023-05-28 08:15:00 [facility] HCG, QUANTITATIVE, 2023-05-28 07:42:00 Yue Bui [facility] TYPE AND SCREEN, AUTOMATED 2023-05-28 07:42:00 Quin Scruggs [facility] XR CHEST 1 VIEW PORTABLE / BEDSIDE 2023-04-01 15:32:16 Thomas Lozoya [facility] B-TYPE NATRIURETIC FACTOR (BNP) 2023-04-01 13:32:00 Thomas Lozoya [facility] ECHO W CONTRAST & DOPPLER 2023-03-31 20:18:37 Luis Carlos [facility] MR CERVICAL SPINE WITHOUT IV CONTRAST 2023-03-31 09:25:00 Edward Lewis [facility] CBC (HEMOGRAM ONLY) 2023-03-31 03:45:00 Luis Carlos [facility] COMPREHENSIVE METABOLIC PANEL 2023-03-31 03:45:00 Luis Carlos [facility] ARTERIAL DOPPLER LEGS BILATERAL 2023-03-30 15:45:00 [facility] ARTERIAL (ALEISHA'S W/ DOPPLER) ONLY 2023-03-30 15:44:00 Luis Carlos [facility] ECG 12-LEAD 2023-03-30 13:06:22 Luis Carlos [facility] ECG 12-LEAD 2023-03-30 13:06:22 Unknown, Hl7 [facility] MR THORACIC SPINE WITHOUT IV CONTRAST 2023-03-30 12:29:58 [facility] MR LUMBAR SPINE WITHOUT IV CONTRAST 2023-03-30 11:58:00 [facility] EEG AWAKE AND DROWSY 2023-03-30 09:57:53 [facility] TOTAL 2023-03-30 09:06:00 [facility] W/ REFLEX URINE CULTURE 2023-03-30 03:54:00 [facility] CBC (HEMOGRAM ONLY) 2023-03-30 03:52:00 Luis Carlos [facility] COMPREHENSIVE METABOLIC PANEL 2023-03-30 03:52:00 [facility] HEMOGLOBIN A1C 2023-03-30 03:52:00 [facility] PT/APTT 2023-03-30 03:52:00 Thomas Lozoya [facility] EKG-SCANNED 2023-03-29 00:00:00 Provider, Default Scanning [facility] CT HEAD WO CONTRAST 2022-12-11 18:36:49 Alfonso Alvarado [facility] URINE DRUG (IMMUNOASSAY) - COMPREHENSIVE DRUG SCREEN 2022-12-11 17:13:00 Alfonso Alvarado [facility] URINALYSIS 2022-12-11 17:13:00 Alfonso Alvarado [facility] CT CHEST PULMONARY ANGIOGRAM 2022-12-11 16:26:39 Alfonso Alvarado [facility] MAGNESIUM 2022-12-11 14:57:00 Alfonso Alvarado [facility] COMP. METABOLIC PANEL ([id number]) 2022-12-11 14:57:00 Alfonso Alvarado [facility] D-DIMER 2022-12-11 14:15:00 Alfonso Alvarado [facility] XR CHEST 1 VW 2022-12-11 14:10:26 Alfonso Alvarado [facility] TROPONIN I 2022-12-11 14:02:00 Alfonso Alvarado [facility] CBC WITH DIFF 2022-12-11 14:02:00 Alfonso Alvarado [facility] N-TERMINAL PRO-BNP 2022-12-11 14:02:00 Alfonso Alvarado [facility] HB ECG ROUTINE & RHYTHM STRIP 2022-12-11 14:01:08 Alfonso Alvarado [facility] CONSENT/REFUSAL FOR DIAGNOSI S AND TREATMENT 2022-12-11 13:52:01 Doctor Unassigned, [place] [facility] ECG 12-LEAD 2022-08-03 05:03:32 Unknown, Hl7 [facility] ECG 12-LEAD 2022-08-03 05:03:32 Unknown, Hl7 [facility] LIPID PANEL 2022-08-02 21:14:00 [facility] TSH/FREE T4 IF INDICATED 2022-08-02 21:14:00 [facility] VITAMIN B12 2022-08-02 21:14:00 [facility] HEMOGLOBIN A1C 2022-08-02 21:14:00 [facility] COMPREHENSIVE METABOLIC PANEL 2022-08-02 21:14:00 Dinosaur [facility] CBC W/PLT COUNT & AUTO DIFFERENTIAL 2022-08-02 21:14:00 Campbell [facility] RPR 2022-08-02 21:14:00 Campbell [facility] HC LAB HIV-1 AG W/HIV-1&2 AB 2022-08-02 21:14:00 [facility] C-REACTIVE PROTEIN 2022-08-02 21:14:00 [facility] CBC W/PLT COUNT & AUTO DIFFERENTIAL 2022-08-02 21:14:00 Dinosaur [facility] EKG-SCANNED 2022-08-02 00:00:00 Provider, Default Scanning [facility] CT HEAD WO CONTRAST 2022-08-01 23:52:15 Essence [facility] GALV ONLY - INFLUENZA A B RS V PCR 2022-08-01 18:28:00 Letitia Chambers [facility] TRANSTHORACIC ECHO (TTE) COMPLETE W/ CONTRAST 2022-08-01 14:42:00 [facility]22-08-01 10:42:00 [facility]ABOLIC PANEL (NA, K , CL, CO2, GLUCOSE, BUN, CREATININE, CA) 2022-08-01 10:42:00 Essence [facility] CBC WITH DIFF 2022-08-01 10:42:00 Essence [facility] N-TERMINAL PRO-BNP 2022-08-01 10:42:00 [facility] POCT GLUCOSE (AUTOMATED) 2022-08-01 06:56:00 Essence [facility] CRITICAL CARE 2022-07-31 22:31:[address] [facility] URINALYSIS 2022-07-31 20:52:[address] [facility] URINE DRUG (IMMUNOASSAY) - COMPREHENSIVE DRUG SCREEN W/O REFLEX 2022-07-31 20:52:[address] [facility] XR CHEST 1 VW 2022-07-31 18:45:[address] [facility] LIPASE 2022-07-31 17:58:[address] [facility] TROPONIN I 2022-07-31 17:58:[address] [facility] COMP. METABOLIC PANEL ([id number]) 2022-07-31 17:58:[address] [facility] CBC WITH DIFF 2022-07-31 17:58:[address] [facility] PROTHROMBIN TIME / INR 2022-07-31 17:58:[address] [facility] ACTIVATED PARTIAL THRMPLAS DAVID 2022-07-31 17:58:[address] [facility] N-TERMINAL PRO-BNP 2022-07-31 17:58:00 Rondon, [facility] HB ECG ROUTINE & RHYTHM STRIP 2022-07-31 17:46:[address] [facility] NOTICE OF PRIVACY PRACTICES 2022-07-31 17:35:38 Doctor Unassigned, [place] [facility] CONSENT/REFUSAL FOR DIAGNOSI S AND TREATMENT 2022-07-31 17:35:13 Doctor Unassigned, [place] [facility] PHOSPHORUS 2022-05-08 05:51:00 Azeem Meehan [facility] MAGNESIUM 2022-05-08 05:51:00 [facility] BASIC METABOLIC PANEL (NA, K , CL, CO2, GLUCOSE, BUN, CREATININE, CA) 2022-05-08 05:51:00 [facility] CBC WITH DIFF 2022-05-08 05:51:00 Shefali [facility] BASIC METABOLIC PANEL (NA, K , CL, CO2, GLUCOSE, BUN, CREATININE, CA) 2022-05-07 07:09:00 John Cintron [facility] CBC WITH DIFF 2022-05-07 07:09:00 John Cintron [facility] POCT GLUCOSE (AUTOMATED) 2022-05-07 01:16:00 Brandyn Mcfarlane [facility] HB ABO GROUPING 2022-05-06 05:07:00 Ismael Dunn [facility] BASIC METABOLIC PANEL (NA, K , CL, CO2, GLUCOSE, BUN, CREATININE, CA) 2022-05-06 05:04:00 [facility] CBC WITH DIFF 2022-05-06 05:04:00 Shefali [facility] KEPPRA (LEVETIRACETAM) 2022-05-06 05:04:00 She[facility] MR LUMBAR SPINE WO CONTRAST 2022-05-06 02:54:37 Ender Monet [facility] ELECTROENCEPHALOGRAM 2022-05-06 00:00:00 John Cintron [facility] BASIC METABOLIC PANEL (NA, K , CL, CO2, GLUCOSE, BUN, CREATININE, CA) 2022-05-05 07:57:00 Ismael Dunn [facility] CBC WITH DIFF 2022-05-05 07:57:00 Ismael Dunn [facility] PROTHROMBIN TIME / INR 2022-05-05 07:57:00 Ismael Dunn [facility] ACTIVATED PARTIAL THRMPLAS DAVID 2022-05-05 07:57:00 [facility] FIB[facility]EN 2022-05-05 07:57:00 Shaun Church [facility] EMERGENCY SERVICES AGREEMENT S AND AUTHORIZATIONS 2022-05-04 05:01:00 Doctor Unassigned, [place] [facility] VITAMIN D, 25-OH 2022-04-15 16:53:00 Sen Toledo [facility] MR THORACIC SPINE WO CONTRAST 2022-04-15 11:56:19 Harshil [facility] MR CERVICAL SPINE WO CONTRAST 2022-04-15 11:20:00 Harshil [facility] BASIC METABOLIC PANEL (NA, K , CL, CO2, GLUCOSE, BUN, CREATININE, CA) 2022-04-15 10:36:00 Charmaine Morataya [facility] TEST, URINE 2022-04-15 04:39:00 Harshil [facility] URINE DRUG (IMMUNOASSAY) - COMPREHENSIVE DRUG SCREEN 2022-04-15 04:39:00 Harshil [facility] URINALYSIS 2022-04-15 04:39:00 Harshil [facility] TRANSTHORACIC ECHO (TTE) COMPLETE W/ CONTRAST 2022-04-14 16:37:03 Harshil [facility] KEPPRA (LEVETIRACETAM) 2022-04-14 15:30:00 Harshil [facility] MAGNESIUM 2022-04-14 10:03:00 Harshil [facility] BASIC METABOLIC PANEL (NA, K , CL, CO2, GLUCOSE, BUN, CREATININE, CA) 2022-04-14 10:03:00 Harshil [facility] MR LUMBAR SPINE WO CONTRAST 2022-04-14 02:48:12 Harshil [facility] MR STROKE BRAIN WO CONTRAST 2022-04-14 02:29:[address] [facility] [address] STROKE ANGIOGRAM HEAD 2022-04-13 18:40:00 Sapna Vargas [facility] CT STROKE ANGIOGRAM NECK 2022-04-13 18:40:00 Sapna Vargas [facility] CT STROKE HEAD WO CONTRAST 2022-04-13 18:36:00 Sapna Vargas [facility] TROPONIN I 2022-04-13 18:17:00 Sapna Vargas [facility] THYROID STIMULATING HORMONE 2022-04-13 18:17:00 Harshil [facility] BASIC METABOLIC PANEL (NA, K , CL, CO2, GLUCOSE, BUN, CREATININE, CA) 2022-04-13 18:17:00 Sapna Vargas [facility] LIPID PANEL (32041)(TOTAL CHOLESTEROL, TRIGLYCERIDES, HDL) 2022-04-13 18:17:00 Harshil [facility] CBC WITHOUT DIFF 2022-04-13 18:17:00 Sapna Vargas [facility] GLYCOSYLATED HEMOGLOBIN (A1C) 2022-04-13 18:17:00 Harshil [facility] PROTHROMBIN TIME / INR 2022-04-13 18:17:00 Sapna Vargas [facility] ACTIVATED PARTIAL THRMPLAS DAVID 2022-04-13 18:17:00 Sapna Vargas [facility] COVID-19 (ID NOW RAPID TESTING) 2022-04-13 18:17:00 Sapna Vargas [facility] LAB ONLY COVID INTERPRETATION 2022-04-13 18:17:00 Sapna Vargas [facility] HB ECG ROUTINE & RHYTHM STRIP 2022-04-13 18:15:49 Sapna Vargas [facility] CONSENT/REFUSAL FOR DIAGNOSI S AND TREATMENT 2022-04-13 18:05:14 Doctor Unassigned, [place] [facility] HOSPITAL ADMISSION 2022-04-13 05:01:00 Doctor Unassigned, [place] [facility] SARS-COV-2 COVID-19 VACCINE 12 YRS+,0.3ML,IM (PFIZER - ROSE TOP) 2022-02-19 15:21:12 Doctor Unassigned, [place] [facility] URINE DRUG (IMMUNOASSAY) - COMPREHENSIVE DRUG SCREEN W/O REFLEX 2021-11-23 21:21:00 Williams Allison [facility] CT HEAD WO CONTRAST 2021-11-23 20:58:00 Williams Allison [facility] POCT TEST 2021-11-23 20:46:00 Williams Allison [facility] URINALYSIS 2021-11-23 20:43:00 Williams Allsion [facility] LIPASE 2021-11-23 20:27:00 Williams Allison [facility] TROPONIN I 2021-11-23 20:27:00 Williams Allison [facility] COMP. METABOLIC PANEL (55135) 2021-11-23 20:27:00 Williams Allison [facility] CBC WITH DIFF 2021-11-23 20:27:00 Williams Allison [facility] POCT GLUCOSE (AUTOMATED) 2021-11-23 20:15:00 Doctor Unassigned, [place] [facility] SARS-COV-2 COVID-19 VACCINE,0.3ML,IM (PFIZER) 2021-05-24 14:23:12 Doctor Unassigned, [place] [facility] SARS-COV-2 COVID-19 VACCINE,0.3ML,IM (PFIZER) 2021-05-03 14:59:29 Doctor Unassigned, [place] [facility] EMERGENCY SERVICES AGREEMENT S AND AUTHORIZATIONS 2021-04-16 05:01:00 Doctor Unassigned, [place] [facility] URINALYSIS 2021-03-17 03:09:00 Fabrice Chakraborty [facility] XR CHEST 1 VW 2021-03-17 01:45:07 Fabrice Chakraborty [facility] TROPONIN I 2021-03-17 01:35:00 Fabrice Chakraborty [facility] COMP. METABOLIC PANEL (30914) 2021-03-17 01:35:00 Fabrice Chakraborty [facility] CBC WITH DIFF 2021-03-17 01:35:00 Fabrice Chakraborty [facility] N-TERMINAL PRO-BNP 2021-03-17 01:35:00 Palmer [facility] COVID-19 (ID NOW RAPID TESTING) 2021-03-17 00:58:00 Mj Bryan [facility] CONSENT/REFUSAL FOR DIAGNOSI S AND TREATMENT 2021-03-17 00:32:59 Doctor Unassigned, [place] [facility] COVID-19 (ID NOW RAPID TESTING) 2021-02-19 17:04:00 Estefania Monroy [facility] CT ABDOMEN PELVIS W CONTRAST 2021-02-19 16:41:18 Estefania Monroy [facility] LIPASE 2021-02-19 15:58:00 Estefania Monroy [facility] COMP. METABOLIC PANEL (19303) 2021-02-19 15:58:00 Estefania Monroy [facility] CBC WITH DIFF 2021-02-19 15:58:00 Estefania Monroy [facility] URINALYSIS 2021-02-19 15:58:00 Estefania Monroy [facility] NOTICE OF PRIVACY PRACTICES 2021-02-19 15:30:46 Doctor Unassigned, [place] [facility] CONSENT/REFUSAL FOR DIAGNOSI S AND TREATMENT 2021-02-19 15:30:30 Doctor Unassigned, [place] [facility] Plan of Care Planned Activity Planned Date Details Comments Source Future Scheduled Test 2025-08-02 00:00:00 Lipid panel (procedure) [code = 15097978] [facility] Future Scheduled Test 2025-08-02 00:00:00 Lipid panel (procedure) [code = 63560388] [facility] Future Scheduled Test 2025-08-02 00:00:00 Lipid panel (procedure) [code = 86283937] [facility] Future Scheduled Test 2025-08-02 00:00:00 Lipid panel (procedure) [code = 16643270] [facility] Future Scheduled Test 2025-08-02 00:00:00 Lipid panel (procedure) [code = 09188762] [facility] Future Scheduled Test 2025-08-02 00:00:00 Lipid panel (procedure) [code = 75922327] [facility] Future Scheduled Test 2025-08-02 00:00:00 Lipid panel (procedure) [code = 82008234] [facility] Future Scheduled Test 2025-08-02 00:00:00 Lipid panel (procedure) [code = 39089752] [facility] Future Scheduled Test 2025-08-02 00:00:00 Lipid panel (procedure) [code = 23971171] [facility] Future Scheduled Test 2025-08-02 00:00:00 Lipid panel (procedure) [code = 35625487] [facility] Future Scheduled Test 2025-08-02 00:00:00 Lipid panel (procedure) [code = 55300941] [facility] Future Scheduled Test 2025-08-02 00:00:00 Lipid panel (procedure) [code = 27357843] [facility] Future Scheduled Test 2025-08-02 00:00:00 Lipid panel (procedure) [code = [id number]] [facility] Scheduled Test 2025-08-02 00:00:00 Lipid panel (procedure) [code = 36966541] [facility] Scheduled Test 2025-08-02 00:00:00 Lipid panel (procedure) [code = [id number]] [facility] Scheduled Test 2025-08-02 00:00:00 Lipid panel (procedure) [code = 47273532] [facility] Scheduled Test 2025-08-02 00:00:00 Lipid panel (procedure) [code = [id number]] [facility] Scheduled Test 2025-08-02 00:00:00 Lipid panel (procedure) [code = 59013048] [facility] Scheduled Test 2025-08-02 00:00:00 Lipid panel (procedure) [code = 27157765] [facility] Scheduled Test 2025-08-02 00:00:00 Lipid panel (procedure) [code = [id number]] [facility] Scheduled Test 2025-08-02 00:00:00 Lipid panel (procedure) [code = 15312086] [facility] Scheduled Test 2025-08-02 00:00:00 Lipid panel (procedure) [code = [id number]] [facility] Scheduled Test 2025-08-02 00:00:00 Lipid panel (procedure) [code = [id number]] [facility] Scheduled Test 2025-08-02 00:00:00 Lipid panel (procedure) [code = 52049298] [facility] Scheduled Test 2025-08-02 00:00:00 Lipid panel (procedure) [code = 65321266] [facility] Scheduled Test 2025-08-02 00:00:00 Lipid panel (procedure) [code = 40942716] [facility] Scheduled Test 2025-08-02 00:00:00 Lipid panel (procedure) [code = 07544026] [facility] Scheduled Test 2025-08-02 00:00:00 Lipid panel (procedure) [code = 21085174] [facility] Scheduled Test 2025-08-02 00:00:00 Lipid panel (procedure) [code = 58805095] [facility] Scheduled Test 2025-08-02 00:00:00 Lipid panel (procedure) [code = 56015939] [facility] Scheduled Test 2025-08-02 00:00:00 Lipid panel (procedure) [code = 04164947] [facility] Scheduled Test 2025-08-02 00:00:00 Lipid panel (procedure) [code = 97383946] [facility] Scheduled Test 2025-08-02 00:00:00 Lipid panel (procedure) [code = 62723871] [facility] Scheduled Test 2025-08-02 00:00:00 Lipid panel (procedure) [code = 55245853] [facility] Scheduled Test 2025-08-02 00:00:00 Lipid panel (procedure) [code = 13620320] [facility] Scheduled Test 2025-08-02 00:00:00 Lipid panel (procedure) [code = 76345128] [facility] Scheduled Test 2025-08-02 00:00:00 Lipid panel (procedure) [code = 06923805] [facility] Scheduled Test 2025-08-02 00:00:00 Lipid panel (procedure) [code = 74165945] [facility] Scheduled Test 2025-08-02 00:00:00 Lipid panel (procedure) [code = 63455780] [facility] Future Scheduled Test 2025-08-02 00:00:00 Lipid panel (procedure) [code = 10739236] [facility] Scheduled Test 2025-08-02 00:00:00 Lipid panel (procedure) [code = 30571453] [facility] Scheduled Test 2025-08-02 00:00:00 Lipid panel (procedure) [code = 45205195] [facility] Scheduled Test 2025-08-02 00:00:00 Lipid panel (procedure) [code = 58608154] [facility] Scheduled Test 2025-08-02 00:00:00 Lipid panel (procedure) [code = [id number]] [facility] Future Scheduled Test 2025-08-02 00:00:00 Lipid panel (procedure) [code = 68248518] [facility] Scheduled Test 2025-08-02 00:00:00 Lipid panel (procedure) [code = 78544472] [facility] Scheduled Test 2025-08-02 00:00:00 Lipid panel (procedure) [code = 44922267] [facility] Scheduled Test 2025-08-02 00:00:00 Lipid panel (procedure) [code = 93523136] [facility] Future Scheduled Test 2025-08-02 00:00:00 Lipid panel (procedure) [code = 43031447] [facility] Scheduled Test 2025-08-02 00:00:00 Lipid panel (procedure) [code = 87357001] [facility] Scheduled Test 2025-08-02 00:00:00 Lipid panel (procedure) [code = 90896344] [facility] Scheduled Test 2025-08-02 00:00:00 Lipid panel (procedure) [code = 39748447] [facility] Scheduled Test 2025-08-02 00:00:00 Lipid panel (procedure) [code = 54108957] [facility] Scheduled Test 2025-08-02 00:00:00 Lipid panel (procedure) [code = 73574000] [facility] Scheduled Test 2025-08-02 00:00:00 Lipid panel (procedure) [code = 38057674] [facility] Future Scheduled Test 2025-08-02 00:00:00 Lipid panel (procedure) [code = 37205941] [facility] Future Scheduled Test 2025-08-02 00:00:00 Lipid panel (procedure) [code = 34979866] [facility] Scheduled Test 2025-08-02 00:00:00 Lipid panel (procedure) [code = 31293422] [facility] Scheduled Test 2025-08-02 00:00:00 Lipid panel (procedure) [code = 57315788] [facility] Scheduled Test 2025-08-02 00:00:00 Lipid panel (procedure) [code = [id number]] [facility] Scheduled Test 2025-08-02 00:00:00 Lipid panel (procedure) [code = 66553361] [facility] Future Scheduled Test 2025-08-02 00:00:00 Lipid panel (procedure) [code = 91487955] [facility] Future Scheduled Test 2025-08-02 00:00:00 Lipid panel (procedure) [code = 58658581] [facility] Future Scheduled Test 2025-08-02 00:00:00 Lipid panel (procedure) [code = [id number]] [facility] Scheduled Test 2025-08-02 00:00:00 Lipid panel (procedure) [code = 31159342] [facility] Future Scheduled Test 2025-08-02 00:00:00 Lipid panel (procedure) [code = 86056718] [facility] Future Scheduled Test 2025-08-02 00:00:00 Lipid panel (procedure) [code = 13075224] [facility] Future Scheduled Test 2025-08-02 00:00:00 Lipid panel (procedure) [code = 49616431] [facility] Scheduled Test 2025-08-02 00:00:00 Lipid panel (procedure) [code = 67196997] [facility] Future Scheduled Test 2025-08-02 00:00:00 Lipid panel (procedure) [code = 44276031] [facility] Scheduled Test 2024-05-28 00:00:00 Tobacco Cessation Counseling and Screening (12+) [code = Tobacco Cessation Counseling and Screening (12+)] [facility] Scheduled Test 2024-05-28 00:00:00 Tobacco Cessation Counseling and Screening (12+) [code = Tobacco Cessation Counseling and Screening (12+)] [facility] Scheduled Test 2024-05-28 00:00:00 Tobacco Cessation Counseling and Screening (12+) [code = Tobacco Cessation Counseling and Screening (12+)] [facility] Scheduled Test 2024-05-28 00:00:00 Tobacco Cessation Counseling and Screening (12+) [code = Tobacco Cessation Counseling and Screening (12+)] [facility] Scheduled Test 2024-05-28 00:00:00 Tobacco Cessation Counseling and Screening (12+) [code = Tobacco Cessation Counseling and Screening (12+)] [facility] Scheduled Test 2024-05-28 00:00:00 Tobacco Cessation Counseling and Screening (12+) [code = Tobacco Cessation Counseling and Screening (12+)] [facility] Scheduled Test 2024-05-28 00:00:00 Tobacco Cessation Counseling and Screening (12+) [code = Tobacco Cessation Counseling and Screening (12+)] [facility] Scheduled Test 2024-05-28 00:00:00 Tobacco Cessation Counseling and Screening (12+) [code = Tobacco Cessation Counseling and Screening (12+)] [facility] Future Scheduled Test 2024-05-28 00:00:00 Tobacco Cessation Counseling and Screening (12+) [code = Tobacco Cessation Counseling and Screening (12+)] [facility] Scheduled Test 2024-05-28 00:00:00 Tobacco Cessation Counseling and Screening (12+) [code = Tobacco Cessation Counseling and Screening (12+)] [facility] Scheduled Test 2024-05-28 00:00:00 Tobacco Cessation Counseling and Screening (12+) [code = Tobacco Cessation Counseling and Screening (12+)] [facility] Scheduled Test 2024-05-28 00:00:00 Tobacco Cessation Counseling and Screening (12+) [code = Tobacco Cessation Counseling and Screening (12+)] [facility] Scheduled Test 2024-05-28 00:00:00 Tobacco Cessation Counseling and Screening (12+) [code = Tobacco Cessation Counseling and Screening (12+)] [facility] Scheduled Test 2024-05-28 00:00:00 Tobacco Cessation Counseling and Screening (12+) [code = Tobacco Cessation Counseling and Screening (12+)] [facility] Scheduled Test 2024-05-28 00:00:00 Tobacco Cessation Counseling and Screening (12+) [code = Tobacco Cessation Counseling and Screening (12+)] [facility] Scheduled Test 2024-05-28 00:00:00 Tobacco Cessation Counseling and Screening (12+) [code = Tobacco Cessation Counseling and Screening (12+)] [facility] Scheduled Test 2024-05-28 00:00:00 Tobacco Cessation Counseling and Screening (12+) [code = Tobacco Cessation Counseling and Screening (12+)] [facility] Scheduled Test 2024-05-28 00:00:00 Tobacco Cessation Counseling and Screening (12+) [code = Tobacco Cessation Counseling and Screening (12+)] [facility] Scheduled Test 2024-05-28 00:00:00 Tobacco Cessation Counseling and Screening (12+) [code = Tobacco Cessation Counseling and Screening (12+)] [facility] Scheduled Test 2024-05-28 00:00:00 Tobacco Cessation Counseling and Screening (12+) [code = Tobacco Cessation Counseling and Screening (12+)] [facility] Scheduled Test 2024-05-28 00:00:00 Tobacco Cessation Counseling and Screening (12+) [code = Tobacco Cessation Counseling and Screening (12+)] [facility] Future Scheduled Test 2024-05-28 00:00:00 Tobacco Cessation Counseling and Screening (12+) [code = Tobacco Cessation Counseling and Screening (12+)] [facility] Scheduled Test 2024-05-28 00:00:00 Tobacco Cessation Counseling and Screening (12+) [code = Tobacco Cessation Counseling and Screening (12+)] [facility] Scheduled Test 2024-05-28 00:00:00 Tobacco Cessation Counseling and Screening (12+) [code = Tobacco Cessation Counseling and Screening (12+)] [facility] Scheduled Test 2024-05-28 00:00:00 Tobacco Cessation Counseling and Screening (12+) [code = Tobacco Cessation Counseling and Screening (12+)] [facility] Scheduled Test 2024-05-28 00:00:00 Tobacco Cessation Counseling and Screening (12+) [code = Tobacco Cessation Counseling and Screening (12+)] [facility] Scheduled Test 2024-05-28 00:00:00 Tobacco Cessation Counseling and Screening (12+) [code = Tobacco Cessation Counseling and Screening (12+)] [facility] Scheduled Test 2024-05-28 00:00:00 Tobacco Cessation Counseling and Screening (12+) [code = Tobacco Cessation Counseling and Screening (12+)] [facility] Scheduled Test 2024-05-28 00:00:00 Tobacco Cessation Counseling and Screening (12+) [code = Tobacco Cessation Counseling and Screening (12+)] [facility] Scheduled Test 2024-05-28 00:00:00 Tobacco Cessation Counseling and Screening (12+) [code = Tobacco Cessation Counseling and Screening (12+)] [facility] Scheduled Test 2024-05-28 00:00:00 Tobacco Cessation Counseling and Screening (12+) [code = Tobacco Cessation Counseling and Screening (12+)] [facility] Scheduled Test 2024-05-28 00:00:00 Tobacco Cessation Counseling and Screening (12+) [code = Tobacco Cessation Counseling and Screening (12+)] [facility] Scheduled Test 2024-05-28 00:00:00 Tobacco Cessation Counseling and Screening (12+) [code = Tobacco Cessation Counseling and Screening (12+)] [facility] Future Scheduled Test 2024-05-28 00:00:00 Tobacco Cessation Counseling and Screening (12+) [code = Tobacco Cessation Counseling and Screening (12+)] [facility] Scheduled Test 2024-05-28 00:00:00 Tobacco Cessation Counseling and Screening (12+) [code = Tobacco Cessation Counseling and Screening (12+)] [facility] Scheduled Test 2024-05-28 00:00:00 Tobacco Cessation Counseling and Screening (12+) [code = Tobacco Cessation Counseling and Screening (12+)] [facility] Scheduled Test 2024-05-28 00:00:00 Tobacco Cessation Counseling and Screening (12+) [code = Tobacco Cessation Counseling and Screening (12+)] [facility] Scheduled Test 2024-05-28 00:00:00 Tobacco Cessation Counseling and Screening (12+) [code = Tobacco Cessation Counseling and Screening (12+)] [facility] Scheduled Test 2024-05-28 00:00:00 Tobacco Cessation Counseling and Screening (12+) [code = Tobacco Cessation Counseling and Screening (12+)] [facility] Scheduled Test 2024-05-28 00:00:00 Tobacco Cessation Counseling and Screening (12+) [code = Tobacco Cessation Counseling and Screening (12+)] [facility] Scheduled Test 2024-05-28 00:00:00 Tobacco Cessation Counseling and Screening (12+) [code = Tobacco Cessation Counseling and Screening (12+)] [facility] Scheduled Test 2024-05-28 00:00:00 Tobacco Cessation Counseling and Screening (12+) [code = Tobacco Cessation Counseling and Screening (12+)] [facility] Scheduled Test 2024-05-28 00:00:00 Tobacco Cessation Counseling and Screening (12+) [code = Tobacco Cessation Counseling and Screening (12+)] [facility] Scheduled Test 2024-05-28 00:00:00 Tobacco Cessation Counseling and Screening (12+) [code = Tobacco Cessation Counseling and Screening (12+)] [facility] Scheduled Test 2024-05-28 00:00:00 Tobacco Cessation Counseling and Screening (12+) [code = Tobacco Cessation Counseling and Screening (12+)] [facility] Future Scheduled Test 2024-05-26 00:00:00 Tobacco Cessation Counseling and Screening (12+) [code = Tobacco Cessation Counseling and Screening (12+)] [facility] Future Scheduled Test 2024-05-26 00:00:00 Tobacco Cessation Counseling and Screening (12+) [code = Tobacco Cessation Counseling and Screening (12+)] [facility] Scheduled Test 2024-03-20 00:00:00 Influenza Vaccine (Season Ended) [code = Influenza Vaccine (Season Ended)] [facility] Scheduled Test 2024-03-20 00:00:00 Influenza Vaccine (Season Ended) [code = Influenza Vaccine (Season Ended)] [facility] Scheduled Test 2024-03-20 00:00:00 Influenza Vaccine (Season Ended) [code = Influenza Vaccine (Season Ended)] [facility] Scheduled Test 2024-03-20 00:00:00 Influenza Vaccine (Season Ended) [code = Influenza Vaccine (Season Ended)] [facility] Scheduled Test 2024-03-20 00:00:00 Influenza Vaccine (Season Ended) [code = Influenza Vaccine (Season Ended)] [facility] Scheduled Test 2024-03-20 00:00:00 Influenza Vaccine (Season Ended) [code = Influenza Vaccine (Season Ended)] [facility] Scheduled Test 2024-03-20 00:00:00 Influenza Vaccine (Season Ended) [code = Influenza Vaccine (Season Ended)] [facility] Scheduled Test 2024-03-20 00:00:00 Influenza Vaccine (Season Ended) [code = Influenza Vaccine (Season Ended)] [facility] Scheduled Test 2024-03-20 00:00:00 Influenza Vaccine (Season Ended) [code = Influenza Vaccine (Season Ended)] [facility] Scheduled Test 2024-03-20 00:00:00 Influenza Vaccine (Season Ended) [code = Influenza Vaccine (Season Ended)] [facility] Scheduled Test 2023-07-20 00:00:00 DEPRESSION SCREENING (12+) [code = DEPRESSION SCREENING (12+)] [facility] Scheduled Test 2023-07-20 00:00:00 DEPRESSION SCREENING (12+) [code = DEPRESSION SCREENING (12+)] [facility] Scheduled Test 2023-07-20 00:00:00 DEPRESSION SCREENING (12+) [code = DEPRESSION SCREENING (12+)] [facility] Scheduled Test 2023-07-20 00:00:00 DEPRESSION SCREENING (12+) [code = DEPRESSION SCREENING (12+)] [facility] Scheduled Test 2023-07-20 00:00:00 DEPRESSION SCREENING (12+) [code = DEPRESSION SCREENING (12+)] [facility] Future Scheduled Test 2023-07-20 00:00:00 DEPRESSION SCREENING (12+) [code = DEPRESSION SCREENING (12+)] [facility] Future Scheduled Test 2023-07-20 00:00:00 DEPRESSION SCREENING (12+) [code = DEPRESSION SCREENING (12+)] [facility] Scheduled Test 2023-07-20 00:00:00 DEPRESSION SCREENING (12+) [code = DEPRESSION SCREENING (12+)] [facility] Scheduled Test 2023-07-20 00:00:00 DEPRESSION SCREENING (12+) [code = DEPRESSION SCREENING (12+)] [facility] Scheduled Test 2023-07-20 00:00:00 DEPRESSION SCREENING (12+) [code = DEPRESSION SCREENING (12+)] [facility] Scheduled Test 2023-07-20 00:00:00 DEPRESSION SCREENING (12+) [code = DEPRESSION SCREENING (12+)] [facility] Future Scheduled Test 2023-07-20 00:00:00 DEPRESSION SCREENING (12+) [code = DEPRESSION SCREENING (12+)] [facility] Future Scheduled Test 2023-07-20 00:00:00 DEPRESSION SCREENING (12+) [code = DEPRESSION SCREENING (12+)] [facility] Scheduled Test 2023-07-20 00:00:00 DEPRESSION SCREENING (12+) [code = DEPRESSION SCREENING (12+)] [facility] Scheduled Test 2023-07-20 00:00:00 DEPRESSION SCREENING (12+) [code = DEPRESSION SCREENING (12+)] [facility] Scheduled Test 2023-07-20 00:00:00 DEPRESSION SCREENING (12+) [code = DEPRESSION SCREENING (12+)] [facility] Scheduled Test 2023-07-20 00:00:00 DEPRESSION SCREENING (12+) [code = DEPRESSION SCREENING (12+)] [facility] Scheduled Test 2023-07-20 00:00:00 DEPRESSION SCREENING (12+) [code = DEPRESSION SCREENING (12+)] [facility] Scheduled Test 2023-07-20 00:00:00 DEPRESSION SCREENING (12+) [code = DEPRESSION SCREENING (12+)] [facility] Scheduled Test 2023-07-20 00:00:00 DEPRESSION SCREENING (12+) [code = DEPRESSION SCREENING (12+)] [facility] Scheduled Test 2023-07-20 00:00:00 DEPRESSION SCREENING (12+) [code = DEPRESSION SCREENING (12+)] [facility] Scheduled Test 2023-07-20 00:00:00 DEPRESSION SCREENING (12+) [code = DEPRESSION SCREENING (12+)] [facility] Scheduled Test 2023-07-20 00:00:00 DEPRESSION SCREENING (12+) [code = DEPRESSION SCREENING (12+)] [facility] Scheduled Test 2023-07-20 00:00:00 DEPRESSION SCREENING (12+) [code = DEPRESSION SCREENING (12+)] [facility] Scheduled Test 2023-07-20 00:00:00 DEPRESSION SCREENING (12+) [code = DEPRESSION SCREENING (12+)] [facility] Scheduled Test 2023-07-20 00:00:00 DEPRESSION SCREENING (12+) [code = DEPRESSION SCREENING (12+)] [facility] Scheduled Test 2023-07-20 00:00:00 DEPRESSION SCREENING (12+) [code = DEPRESSION SCREENING (12+)] [facility] Scheduled Test 2023-07-20 00:00:00 DEPRESSION SCREENING (12+) [code = DEPRESSION SCREENING (12+)] [facility] Scheduled Test 2023-07-20 00:00:00 DEPRESSION SCREENING (12+) [code = DEPRESSION SCREENING (12+)] [facility] Scheduled Test 2023-07-20 00:00:00 DEPRESSION SCREENING (12+) [code = DEPRESSION SCREENING (12+)] [facility] Scheduled Test 2023-07-20 00:00:00 DEPRESSION SCREENING (12+) [code = DEPRESSION SCREENING (12+)] [facility] Scheduled Test 2023-07-20 00:00:00 DEPRESSION SCREENING (12+) [code = DEPRESSION SCREENING (12+)] [facility] Scheduled Test 2023-07-20 00:00:00 DEPRESSION SCREENING (12+) [code = DEPRESSION SCREENING (12+)] [facility] Scheduled Test 2023-07-20 00:00:00 DEPRESSION SCREENING (12+) [code = DEPRESSION SCREENING (12+)] [facility] Scheduled Test 2023-07-20 00:00:00 DEPRESSION SCREENING (12+) [code = DEPRESSION SCREENING (12+)] [facility] Scheduled Test 2023-07-20 00:00:00 DEPRESSION SCREENING (12+) [code = DEPRESSION SCREENING (12+)] [facility] Scheduled Test 2023-07-20 00:00:00 DEPRESSION SCREENING (12+) [code = DEPRESSION SCREENING (12+)] [facility] Scheduled Test 2023-03-20 00:00:00 INFLUENZA VACCINE (Season Ended) [code = INFLUENZA VACCINE (Season Ended)] [facility] Scheduled Test 2023-03-20 00:00:00 INFLUENZA VACCINE (Season Ended) [code = INFLUENZA VACCINE (Season Ended)] [facility] Scheduled Test 2023-03-20 00:00:00 INFLUENZA VACCINE (Season Ended) [code = INFLUENZA VACCINE (Season Ended)] [facility] Scheduled Test 2023-03-20 00:00:00 INFLUENZA VACCINE (Season Ended) [code = INFLUENZA VACCINE (Season Ended)] [facility] Scheduled Test 2023-03-20 00:00:00 INFLUENZA VACCINE (Season Ended) [code = INFLUENZA VACCINE (Season Ended)] [facility] Scheduled Test 2023-03-20 00:00:00 INFLUENZA VACCINE (Season Ended) [code = INFLUENZA VACCINE (Season Ended)] [facility] Scheduled Test 2023-03-20 00:00:00 Influenza Vaccine (Season Ended) [code = Influenza Vaccine (Season Ended)] [facility] Scheduled Test 2023-03-20 00:00:00 Influenza Vaccine (Season Ended) [code = Influenza Vaccine (Season Ended)] [facility] Scheduled Test 2023-03-20 00:00:00 Influenza Vaccine (#1) [code = Influenza Vaccine (#1)] [facility] Scheduled Test 2023-03-20 00:00:00 Influenza Vaccine (#1) [code = Influenza Vaccine (#1)] [facility] Scheduled Test 2023-03-20 00:00:00 Influenza Vaccine (#1) [code = Influenza Vaccine (#1)] [facility] Future Scheduled Test 2023-03-20 00:00:00 Influenza Vaccine (#1) [code = Influenza Vaccine (#1)] [facility] Scheduled Test 2023-03-20 00:00:00 COVID-19 VACCINE ( season) [code = COVID-19 VACCINE ( season)] [facility] Scheduled Test 2023-03-20 00:00:00 Influenza Vaccine (#1) [code = Influenza Vaccine (#1)] [facility] Scheduled Test 2023-03-20 00:00:00 COVID-19 VACCINE ( season) [code = COVID-19 VACCINE ( season)] [facility] Scheduled Test 2023-03-20 00:00:00 Influenza Vaccine (#1) [code = Influenza Vaccine (#1)] [facility] Scheduled Test 2023-03-20 00:00:00 COVID-19 VACCINE ( season) [code = COVID-19 VACCINE ( season)] [facility] Scheduled Test 2023-03-20 00:00:00 Influenza Vaccine (#1) [code = Influenza Vaccine (#1)] [facility] Scheduled Test 2023-03-20 00:00:00 COVID-19 VACCINE ( season) [code = COVID-19 VACCINE ( season)] [facility] Scheduled Test 2023-03-20 00:00:00 Influenza Vaccine (#1) [code = Influenza Vaccine (#1)] [facility] Scheduled Test 2023-03-20 00:00:00 Influenza Vaccine (#1) [code = Influenza Vaccine (#1)] [facility] Scheduled Test 2023-03-20 00:00:00 COVID-19 VACCINE ( season) [code = COVID-19 VACCINE ()] [facility] Scheduled Test 2023-03-20 00:00:00 Influenza Vaccine (#1) [code = Influenza Vaccine (#1)] [facility] Scheduled Test 2023-03-20 00:00:00 COVID-19 VACCINE () [code = COVID-19 VACCINE ()] [facility] Scheduled Test 2023-03-20 00:00:00 Influenza Vaccine (#1) [code = Influenza Vaccine (#1)] [facility] Scheduled Test 2023-03-20 00:00:00 COVID-19 VACCINE () [code = COVID-19 VACCINE ()] [facility] Scheduled Test 2023-03-20 00:00:00 Influenza Vaccine (#1) [code = Influenza Vaccine (#1)] [facility] Scheduled Test 2023-03-20 00:00:00 COVID-19 VACCINE ( season) [code = COVID-19 VACCINE ()] [facility] Scheduled Test 2023-03-20 00:00:00 Influenza Vaccine (#1) [code = Influenza Vaccine (#1)] [facility] Scheduled Test 2023-03-20 00:00:00 COVID-19 VACCINE () [code = COVID-19 VACCINE ( season)] [facility] Scheduled Test 2023-03-20 00:00:00 Influenza Vaccine (#1) [code = Influenza Vaccine (#1)] [facility] Scheduled Test 2023-03-20 00:00:00 COVID-19 VACCINE ( season) [code = COVID-19 VACCINE ( season)] [facility] Scheduled Test 2023-03-20 00:00:00 Influenza Vaccine (#1) [code = Influenza Vaccine (#1)] [facility] Scheduled Test 2023-03-20 00:00:00 COVID-19 VACCINE ( season) [code = COVID-19 VACCINE ()] [facility] Scheduled Test 2023-03-20 00:00:00 Influenza Vaccine (#1) [code = Influenza Vaccine (#1)] [facility] Scheduled Test 2023-03-20 00:00:00 Influenza Vaccine (#1) [code = Influenza Vaccine (#1)] [facility] Scheduled Test 2023-03-20 00:00:00 COVID-19 VACCINE ( season) [code = COVID-19 VACCINE ()] [facility] Scheduled Test 2023-03-20 00:00:00 Influenza Vaccine (#1) [code = Influenza Vaccine (#1)] [facility] Scheduled Test 2023-03-20 00:00:00 COVID-19 VACCINE ( season) [code = COVID-19 VACCINE ( season)] [facility] Scheduled Test 2023-03-20 00:00:00 Influenza Vaccine (#1) [code = Influenza Vaccine (#1)] [facility] Scheduled Test 2023-03-20 00:00:00 COVID-19 VACCINE ( season) [code = COVID-19 VACCINE ( season)] [facility] Scheduled Test 2023-03-20 00:00:00 Influenza Vaccine (#1) [code = Influenza Vaccine (#1)] [facility] Scheduled Test 2023-03-20 00:00:00 COVID-19 VACCINE ( season) [code = COVID-19 VACCINE ( season)] [facility] Scheduled Test 2023-03-20 00:00:00 Influenza Vaccine (#1) [code = Influenza Vaccine (#1)] [facility] Scheduled Test 2023-03-20 00:00:00 COVID-19 VACCINE ( season) [code = COVID-19 VACCINE ()] [facility] Scheduled Test 2023-03-20 00:00:00 Influenza Vaccine (#1) [code = Influenza Vaccine (#1)] [facility] Scheduled Test 2023-03-20 00:00:00 COVID-19 VACCINE () [code = COVID-19 VACCINE ()] [facility] Scheduled Test 2023-03-20 00:00:00 Influenza Vaccine (#1) [code = Influenza Vaccine (#1)] [facility] Scheduled Test 2023-03-20 00:00:00 Influenza Vaccine (#1) [code = Influenza Vaccine (#1)] [facility] Scheduled Test 2023-03-20 00:00:00 COVID-19 VACCINE ( season) [code = COVID-19 VACCINE ()] [facility] Scheduled Test 2023-03-20 00:00:00 Influenza Vaccine (#1) [code = Influenza Vaccine (#1)] [facility] Scheduled Test 2023-03-20 00:00:00 COVID-19 VACCINE ( season) [code = COVID-19 VACCINE ( season)] [facility] Scheduled Test 2023-03-20 00:00:00 Influenza Vaccine (#1) [code = Influenza Vaccine (#1)] [facility] Scheduled Test 2023-03-20 00:00:00 COVID-19 VACCINE ( season) [code = COVID-19 VACCINE ()] [facility] Scheduled Test 2023-03-20 00:00:00 Influenza Vaccine (#1) [code = Influenza Vaccine (#1)] [facility] Scheduled Test 2023-03-20 00:00:00 COVID-19 VACCINE ( season) [code = COVID-19 VACCINE ()] [facility] Scheduled Test 2023-03-20 00:00:00 Influenza Vaccine (#1) [code = Influenza Vaccine (#1)] [facility] Scheduled Test 2023-03-20 00:00:00 Influenza Vaccine (#1) [code = Influenza Vaccine (#1)] [facility] Scheduled Test 2023-03-20 00:00:00 COVID-19 VACCINE ( season) [code = COVID-19 VACCINE ()] [facility] Scheduled Test 2023-03-20 00:00:00 Influenza Vaccine (#1) [code = Influenza Vaccine (#1)] [facility] Scheduled Test 2023-03-20 00:00:00 COVID-19 VACCINE ( season) [code = COVID-19 VACCINE ()] [facility] Scheduled Test 2023-03-20 00:00:00 Influenza Vaccine (#1) [code = Influenza Vaccine (#1)] [facility] Scheduled Test 2023-03-20 00:00:00 COVID-19 VACCINE ( season) [code = COVID-19 VACCINE ( season)] [facility] Scheduled Test 2023-03-20 00:00:00 Influenza Vaccine (#1) [code = Influenza Vaccine (#1)] [facility] Scheduled Test 2023-03-20 00:00:00 COVID-19 VACCINE ( season) [code = COVID-19 VACCINE ( season)] [facility] Scheduled Test 2023-03-20 00:00:00 Influenza Vaccine (#1) [code = Influenza Vaccine (#1)] [facility] Scheduled Test 2023-03-20 00:00:00 COVID-19 VACCINE ( season) [code = COVID-19 VACCINE ()] [facility] Scheduled Test 2023-03-20 00:00:00 Influenza Vaccine (#1) [code = Influenza Vaccine (#1)] [facility] Scheduled Test 2023-03-20 00:00:00 COVID-19 VACCINE ( season) [code = COVID-19 VACCINE ()] [facility] Scheduled Test 2023-03-20 00:00:00 Influenza Vaccine (#1) [code = Influenza Vaccine (#1)] [facility] Scheduled Test 2023-03-20 00:00:00 Influenza Vaccine (#1) [code = Influenza Vaccine (#1)] [facility] Scheduled Test 2023-03-20 00:00:00 COVID-19 VACCINE ( season) [code = COVID-19 VACCINE ()] [facility] Scheduled Test 2023-03-20 00:00:00 Influenza Vaccine (#1) [code = Influenza Vaccine (#1)] [facility] Scheduled Test 2023-03-20 00:00:00 COVID-19 VACCINE ( season) [code = COVID-19 VACCINE ( season)] [facility] Scheduled Test 2023-03-20 00:00:00 Influenza Vaccine (#1) [code = Influenza Vaccine (#1)] [facility] Scheduled Test 2023-03-20 00:00:00 COVID-19 VACCINE ( season) [code = COVID-19 VACCINE ()] [facility] Scheduled Test 2023-03-20 00:00:00 COVID-19 VACCINE ( season) [code = COVID-19 VACCINE ()] [facility] Scheduled Test 2023-03-20 00:00:00 COVID-19 VACCINE () [code = COVID-19 VACCINE ()] [facility] Scheduled Test 2023-03-20 00:00:00 COVID-19 VACCINE () [code = COVID-19 VACCINE ()] [facility] Scheduled Test 2023-03-20 00:00:00 COVID-19 VACCINE () [code = COVID-19 VACCINE ()] [facility] Scheduled Test 2023-03-20 00:00:00 COVID-19 VACCINE ( season) [code = COVID-19 VACCINE ()] [facility] Scheduled Test 2023-03-20 00:00:00 Influenza Vaccine (#1) [code = Influenza Vaccine (#1)] [facility] Scheduled Test 2023-03-20 00:00:00 COVID-19 VACCINE () [code = COVID-19 VACCINE ()] [facility] Scheduled Test 2023-03-20 00:00:00 COVID-19 VACCINE () [code = COVID-19 VACCINE ()] [facility] Scheduled Test 2023-03-20 00:00:00 COVID-19 VACCINE ( season) [code = COVID-19 VACCINE ()] [facility] Scheduled Test 2023-03-20 00:00:00 COVID-19 VACCINE () [code = COVID-19 VACCINE ()] [facility] Scheduled Test 2023-03-20 00:00:00 Influenza Vaccine (#1) [code = Influenza Vaccine (#1)] [facility] Scheduled Test 2023-03-20 00:00:00 Influenza Vaccine (#1) [code = Influenza Vaccine (#1)] [facility] Scheduled Test 2023-03-20 00:00:00 Influenza Vaccine (#1) [code = Influenza Vaccine (#1)] [facility] Scheduled Test 2023-03-20 00:00:00 Influenza Vaccine (#1) [code = Influenza Vaccine (#1)] [facility] Scheduled Test 2023-03-20 00:00:00 Influenza Vaccine (#1) [code = Influenza Vaccine (#1)] [facility] Scheduled Test 2023-03-20 00:00:00 Influenza Vaccine (#1) [code = Influenza Vaccine (#1)] [facility] Scheduled Test 2023-03-20 00:00:00 Influenza Vaccine (#1) [code = Influenza Vaccine (#1)] [facility] Scheduled Test 2023-03-20 00:00:00 Influenza Vaccine (#1) [code = Influenza Vaccine (#1)] [facility] Scheduled Test 2023-03-20 00:00:00 Influenza Vaccine (#1) [code = Influenza Vaccine (#1)] [facility] Scheduled Test 2023-03-20 00:00:00 COVID-19 VACCINE ( season) [code = COVID-19 VACCINE ( season)] [facility] Scheduled Test 2022-07-20 00:00:00 DEPRESSION SCREENING (12+) [code = DEPRESSION SCREENING (12+)] [facility] Scheduled Test 2022-07-20 00:00:00 DEPRESSION SCREENING (12+) [code = DEPRESSION SCREENING (12+)] [facility] Scheduled Test 2022-07-20 00:00:00 DEPRESSION SCREENING (12+) [code = DEPRESSION SCREENING (12+)] [facility] Scheduled Test 2022-07-20 00:00:00 DEPRESSION SCREENING (12+) [code = DEPRESSION SCREENING (12+)] [facility] Scheduled Test 2022-07-20 00:00:00 DEPRESSION SCREENING (12+) [code = DEPRESSION SCREENING (12+)] [facility] Scheduled Test 2022-07-20 00:00:00 DEPRESSION SCREENING (12+) [code = DEPRESSION SCREENING (12+)] [facility] Scheduled Test 2022-07-20 00:00:00 DEPRESSION SCREENING (12+) [code = DEPRESSION SCREENING (12+)] [facility] Scheduled Test 2022-07-20 00:00:00 DEPRESSION SCREENING (12+) [code = DEPRESSION SCREENING (12+)] [facility] Scheduled Test 2022-07-20 00:00:00 DEPRESSION SCREENING (12+) [code = DEPRESSION SCREENING (12+)] [facility] Scheduled Test 2022-07-20 00:00:00 DEPRESSION SCREENING (12+) [code = DEPRESSION SCREENING (12+)] [facility] Scheduled Test 2022-07-20 00:00:00 DEPRESSION SCREENING (12+) [code = DEPRESSION SCREENING (12+)] [facility] Scheduled Test 2022-07-20 00:00:00 DEPRESSION SCREENING (12+) [code = DEPRESSION SCREENING (12+)] [facility] Scheduled Test 2022-07-20 00:00:00 DEPRESSION SCREENING (12+) [code = DEPRESSION SCREENING (12+)] [facility] Scheduled Test 2022-07-20 00:00:00 DEPRESSION SCREENING (12+) [code = DEPRESSION SCREENING (12+)] [facility] Scheduled Test 2022-07-20 00:00:00 DEPRESSION SCREENING (12+) [code = DEPRESSION SCREENING (12+)] [facility] Scheduled Test 2022-07-20 00:00:00 DEPRESSION SCREENING (12+) [code = DEPRESSION SCREENING (12+)] [facility] Scheduled Test 2022-07-20 00:00:00 DEPRESSION SCREENING (12+) [code = DEPRESSION SCREENING (12+)] [facility] Scheduled Test 2022-07-20 00:00:00 DEPRESSION SCREENING (12+) [code = DEPRESSION SCREENING (12+)] [facility] Scheduled Test 2022-07-20 00:00:00 DEPRESSION SCREENING (12+) [code = DEPRESSION SCREENING (12+)] [facility] Scheduled Test 2022-07-20 00:00:00 DEPRESSION SCREENING (12+) [code = DEPRESSION SCREENING (12+)] [facility] Scheduled Test 2022-07-20 00:00:00 DEPRESSION SCREENING (12+) [code = DEPRESSION SCREENING (12+)] [facility] Scheduled Test 2022-07-20 00:00:00 DEPRESSION SCREENING (12+) [code = DEPRESSION SCREENING (12+)] [facility] Scheduled Test 2022-07-20 00:00:00 DEPRESSION SCREENING (12+) [code = DEPRESSION SCREENING (12+)] [facility] Scheduled Test 2022-07-20 00:00:00 DEPRESSION SCREENING (12+) [code = DEPRESSION SCREENING (12+)] [facility] Scheduled Test 2022-07-20 00:00:00 DEPRESSION SCREENING (12+) [code = DEPRESSION SCREENING (12+)] [facility] Scheduled Test 2022-07-20 00:00:00 DEPRESSION SCREENING (12+) [code = DEPRESSION SCREENING (12+)] [facility] Scheduled Test 2022-07-20 00:00:00 DEPRESSION SCREENING (12+) [code = DEPRESSION SCREENING (12+)] [facility] Scheduled Test 2022-07-20 00:00:00 DEPRESSION SCREENING (12+) [code = DEPRESSION SCREENING (12+)] [facility] Scheduled Test 2022-07-20 00:00:00 DEPRESSION SCREENING (12+) [code = DEPRESSION SCREENING (12+)] [facility] Scheduled Test 2022-07-20 00:00:00 DEPRESSION SCREENING (12+) [code = DEPRESSION SCREENING (12+)] [facility] Scheduled Test 2022-07-20 00:00:00 DEPRESSION SCREENING (12+) [code = DEPRESSION SCREENING (12+)] [facility] Scheduled Test 2022-07-20 00:00:00 DEPRESSION SCREENING (12+) [code = DEPRESSION SCREENING (12+)] [facility] Scheduled Test 2022-07-20 00:00:00 DEPRESSION SCREENING (12+) [code = DEPRESSION SCREENING (12+)] [facility] Scheduled Test 2022-06-21 00:00:00 COVID-19 VACCINE (4 - Booster for Pfizer series) [code = COVID-19 VACCINE (4 - Booster for Pfizer series)] [facility] Scheduled Test 2022-06-21 00:00:00 COVID-19 VACCINE (4 - Booster for Pfizer series) [code = COVID-19 VACCINE (4 - Booster for Pfizer series)] [facility] Scheduled Test 2022-06-21 00:00:00 COVID-19 VACCINE (4 - Booster for Pfizer series) [code = COVID-19 VACCINE (4 - Booster for Pfizer series)] [facility] Scheduled Test 2022-06-21 00:00:00 COVID-19 VACCINE (4 - Booster for Pfizer series) [code = COVID-19 VACCINE (4 - Booster for Pfizer series)] [facility] Scheduled Test 2022-04-16 00:00:00 COVID-19 VACCINE (4 - Booster for Pfizer series) [code = COVID-19 VACCINE (4 - Booster for Pfizer series)] [facility] Scheduled Test 2022-04-16 00:00:00 COVID-19 VACCINE (4 - Booster for Pfizer series) [code = COVID-19 VACCINE (4 - Booster for Pfizer series)] [facility] Scheduled Test 2022-04-16 00:00:00 COVID-19 VACCINE (4 - Booster for Pfizer series) [code = COVID-19 VACCINE (4 - Booster for Pfizer series)] [facility] Scheduled Test 2022-04-16 00:00:00 COVID-19 VACCINE (4 - Booster for Pfizer series) [code = COVID-19 VACCINE (4 - Booster for Pfizer series)] [facility] Scheduled Test 2022-04-16 00:00:00 COVID-19 VACCINE (4 - Booster for Pfizer series) [code = COVID-19 VACCINE (4 - Booster for Pfizer series)] [facility] Scheduled Test 2022-04-16 00:00:00 COVID-19 VACCINE (4 - Booster for Pfizer series) [code = COVID-19 VACCINE (4 - Booster for Pfizer series)] [facility] Scheduled Test 2022-04-16 00:00:00 COVID-19 VACCINE (4 - Booster for Pfizer series) [code = COVID-19 VACCINE (4 - Booster for Pfizer series)] [facility] Scheduled Test 2022-04-16 00:00:00 COVID-19 VACCINE (4 - Booster for Pfizer series) [code = COVID-19 VACCINE (4 - Booster for Pfizer series)] [facility] Scheduled Test 2022-04-16 00:00:00 COVID-19 VACCINE (4 - Booster for Pfizer series) [code = COVID-19 VACCINE (4 - Booster for Pfizer series)] [facility] Scheduled Test 2022-04-16 00:00:00 COVID-19 VACCINE (4 - Booster for Pfizer series) [code = COVID-19 VACCINE (4 - Booster for Pfizer series)] [facility] Scheduled Test 2022-04-16 00:00:00 COVID-19 VACCINE (4 - Booster for Pfizer series) [code = COVID-19 VACCINE (4 - Booster for Pfizer series)] [facility] Scheduled Test 2022-04-16 00:00:00 COVID-19 VACCINE (4 - Booster for Pfizer series) [code = COVID-19 VACCINE (4 - Booster for Pfizer series)] [facility] Scheduled Test 2022-04-16 00:00:00 COVID-19 VACCINE (4 - Booster for Pfizer series) [code = COVID-19 VACCINE (4 - Booster for Pfizer series)] [facility] Scheduled Test 2022-04-16 00:00:00 COVID-19 VACCINE (4 - Booster for Pfizer series) [code = COVID-19 VACCINE (4 - Booster for Pfizer series)] [facility] Scheduled Test 2022-04-16 00:00:00 COVID-19 VACCINE (4 - Booster for Pfizer series) [code = COVID-19 VACCINE (4 - Booster for Pfizer series)] [facility] Scheduled Test 2022-04-16 00:00:00 COVID-19 VACCINE (4 - Booster for Pfizer series) [code = COVID-19 VACCINE (4 - Booster for Pfizer series)] [facility] Scheduled Test 2022-04-16 00:00:00 COVID-19 VACCINE (4 - Booster for Pfizer series) [code = COVID-19 VACCINE (4 - Booster for Pfizer series)] [facility] Scheduled Test 2022-04-16 00:00:00 COVID-19 VACCINE (4 - Booster for Pfizer series) [code = COVID-19 VACCINE (4 - Booster for Pfizer series)] [facility] Scheduled Test 2022-04-16 00:00:00 COVID-19 VACCINE (4 - Booster for Pfizer series) [code = COVID-19 VACCINE (4 - Booster for Pfizer series)] [facility] Scheduled Test 2022-04-16 00:00:00 COVID-19 VACCINE (4 - Booster for Pfizer series) [code = COVID-19 VACCINE (4 - Booster for Pfizer series)] [facility] Scheduled Test 2022-04-16 00:00:00 COVID-19 VACCINE (4 - Pfizer series) [code = COVID-19 VACCINE (4 - Pfizer series)] [facility] Scheduled Test 2022-04-16 00:00:00 COVID-19 VACCINE (4 - Pfizer series) [code = COVID-19 VACCINE (4 - Pfizer series)] [facility] Scheduled Test 2022-04-16 00:00:00 COVID-19 VACCINE (4 - Pfizer series) [code = COVID-19 VACCINE (4 - Pfizer series)] [facility] Scheduled Test 2022-04-16 00:00:00 COVID-19 VACCINE (4 - Pfizer series) [code = COVID-19 VACCINE (4 - Pfizer series)] [facility] Scheduled Test 2022-04-16 00:00:00 COVID-19 VACCINE (4 - Booster for Pfizer series) [code = COVID-19 VACCINE (4 - Booster for Pfizer series)] [facility] Scheduled Test 2022-04-16 00:00:00 COVID-19 VACCINE (4 - Pfizer series) [code = COVID-19 VACCINE (4 - Pfizer series)] [facility] Scheduled Test 2022-03-20 00:00:00 INFLUENZA VACCINE (#1) [code = INFLUENZA VACCINE (#1)] [facility] Scheduled Test 2022-03-20 00:00:00 INFLUENZA VACCINE (#1) [code = INFLUENZA VACCINE (#1)] [facility] Scheduled Test 2022-03-20 00:00:00 INFLUENZA VACCINE (#1) [code = INFLUENZA VACCINE (#1)] [facility] Scheduled Test 2022-03-20 00:00:00 INFLUENZA VACCINE (#1) [code = INFLUENZA VACCINE (#1)] [facility] Scheduled Test 2022-01-14 00:00:00 SHINGLES VACCINES (1 of 2) [code = SHINGLES VACCINES (1 of 2)] [facility] Scheduled Test 2022-01-14 00:00:00 SHINGLES VACCINES (1 of 2) [code = SHINGLES VACCINES (1 of 2)] [facility] Scheduled Test 2022-01-14 00:00:00 SHINGLES VACCINES (1 of 2) [code = SHINGLES VACCINES (1 of 2)] [facility] Scheduled Test 2022-01-14 00:00:00 SHINGLES VACCINES (1 of 2) [code = SHINGLES VACCINES (1 of 2)] [facility] Scheduled Test 2022-01-14 00:00:00 SHINGLES VACCINES (1 of 2) [code = SHINGLES VACCINES (1 of 2)] [facility] Scheduled Test 2022-01-14 00:00:00 SHINGLES VACCINES (1 of 2) [code = SHINGLES VACCINES (1 of 2)] [facility] Scheduled Test 2022-01-14 00:00:00 SHINGLES VACCINES (1 of 2) [code = SHINGLES VACCINES (1 of 2)] [facility] Scheduled Test 2022-01-14 00:00:00 SHINGLES VACCINES (1 of 2) [code = SHINGLES VACCINES (1 of 2)] [facility] Scheduled Test 2022-01-14 00:00:00 SHINGLES VACCINES (1 of 2) [code = SHINGLES VACCINES (1 of 2)] [facility] Scheduled Test 2022-01-14 00:00:00 SHINGLES VACCINES (1 of 2) [code = SHINGLES VACCINES (1 of 2)] [facility] Scheduled Test 2022-01-14 00:00:00 SHINGLES VACCINES (1 of 2) [code = SHINGLES VACCINES (1 of 2)] [facility] Scheduled Test 2022-01-14 00:00:00 SHINGLES VACCINES (1 of 2) [code = SHINGLES VACCINES (1 of 2)] [facility] Scheduled Test 2022-01-14 00:00:00 SHINGLES VACCINES (1 of 2) [code = SHINGLES VACCINES (1 of 2)] [facility] Scheduled Test 2022-01-14 00:00:00 SHINGLES VACCINES (1 of 2) [code = SHINGLES VACCINES (1 of 2)] [facility] Scheduled Test 2022-01-14 00:00:00 SHINGLES VACCINES (1 of 2) [code = SHINGLES VACCINES (1 of 2)] [facility] Scheduled Test 2022-01-14 00:00:00 Screening for malignant neoplasm of lung (procedure) [code = [id number]] [facility] Scheduled Test 2022-01-14 00:00:00 SHINGLES VACCINES (1 of 2) [code = SHINGLES VACCINES (1 of 2)] [facility] Scheduled Test 2022-01-14 00:00:00 Screening for malignant neoplasm of lung (procedure) [code = [id number]] [facility] Scheduled Test 2022-01-14 00:00:00 SHINGLES VACCINES (1 of 2) [code = SHINGLES VACCINES (1 of 2)] [facility] Scheduled Test 2022-01-14 00:00:00 Screening for malignant neoplasm of lung (procedure) [code = [id number]] [facility] Scheduled Test 2022-01-14 00:00:00 SHINGLES VACCINES (1 of 2) [code = SHINGLES VACCINES (1 of 2)] [facility] Scheduled Test 2022-01-14 00:00:00 Screening for malignant neoplasm of lung (procedure) [code = [id number]] [facility] Scheduled Test 2022-01-14 00:00:00 SHINGLES VACCINES (1 of 2) [code = SHINGLES VACCINES (1 of 2)] [facility] Scheduled Test 2022-01-14 00:00:00 Screening for malignant neoplasm of lung (procedure) [code = [id number]] [facility] Future Scheduled Test 2022-01-14 00:00:00 SHINGLES VACCINES (1 of 2) [code = SHINGLES VACCINES (1 of 2)] [facility] Future Scheduled Test 2022-01-14 00:00:00 Screening for malignant neoplasm of lung (procedure) [code = 209540290] [facility] Future Scheduled Test 2022-01-14 00:00:00 SHINGLES VACCINES (1 of 2) [code = SHINGLES VACCINES (1 of 2)] [facility] Future Scheduled Test 2022-01-14 00:00:00 Screening for malignant neoplasm of lung (procedure) [code = 344391754] [facility] Future Scheduled Test 2022-01-14 00:00:00 SHINGLES VACCINES (1 of 2) [code = SHINGLES VACCINES (1 of 2)] [facility] Future Scheduled Test 2022-01-14 00:00:00 Screening for malignant neoplasm of lung (procedure) [code = 505499292] [facility] Future Scheduled Test 2022-01-14 00:00:00 SHINGLES VACCINES (1 of 2) [code = SHINGLES VACCINES (1 of 2)] [facility] Future Scheduled Test 2022-01-14 00:00:00 Screening for malignant neoplasm of lung (procedure) [code = 165278896] [facility] Future Scheduled Test 2022-01-14 00:00:00 SHINGLES VACCINES (1 of 2) [code = SHINGLES VACCINES (1 of 2)] [facility] Future Scheduled Test 2022-01-14 00:00:00 Screening for malignant neoplasm of lung (procedure) [code = 786822637] [facility] Future Scheduled Test 2022-01-14 00:00:00 SHINGLES VACCINES (1 of 2) [code = SHINGLES VACCINES (1 of 2)] [facility] Future Scheduled Test 2022-01-14 00:00:00 Screening for malignant neoplasm of lung (procedure) [code = 387212487] [facility] Future Scheduled Test 2022-01-14 00:00:00 SHINGLES VACCINES (1 of 2) [code = SHINGLES VACCINES (1 of 2)] [facility] Future Scheduled Test 2022-01-14 00:00:00 Screening for malignant neoplasm of lung (procedure) [code = 832714992] [facility] Future Scheduled Test 2022-01-14 00:00:00 SHINGLES VACCINES (1 of 2) [code = SHINGLES VACCINES (1 of 2)] [facility] Future Scheduled Test 2022-01-14 00:00:00 Screening for malignant neoplasm of lung (procedure) [code = 435234051] [facility] Future Scheduled Test 2022-01-14 00:00:00 SHINGLES VACCINES (1 of 2) [code = SHINGLES VACCINES (1 of 2)] [facility] Future Scheduled Test 2022-01-14 00:00:00 Screening for malignant neoplasm of lung (procedure) [code = 094030273] [facility] Future Scheduled Test 2022-01-14 00:00:00 SHINGLES VACCINES (1 of 2) [code = SHINGLES VACCINES (1 of 2)] [facility] Future Scheduled Test 2022-01-14 00:00:00 Screening for malignant neoplasm of lung (procedure) [code = 523467377] [facility] Future Scheduled Test 2022-01-14 00:00:00 SHINGLES VACCINES (1 of 2) [code = SHINGLES VACCINES (1 of 2)] [facility] Future Scheduled Test 2022-01-14 00:00:00 Screening for malignant neoplasm of lung (procedure) [code = 499268560] [facility] Future Scheduled Test 2022-01-14 00:00:00 SHINGLES VACCINES (1 of 2) [code = SHINGLES VACCINES (1 of 2)] [facility] Future Scheduled Test 2022-01-14 00:00:00 Screening for malignant neoplasm of lung (procedure) [code = 410442775] [facility] Future Scheduled Test 2022-01-14 00:00:00 SHINGLES VACCINES (1 of 2) [code = SHINGLES VACCINES (1 of 2)] [facility] Future Scheduled Test 2022-01-14 00:00:00 Screening for malignant neoplasm of lung (procedure) [code = 601944732] [facility] Future Scheduled Test 2022-01-14 00:00:00 SHINGLES VACCINES (1 of 2) [code = SHINGLES VACCINES (1 of 2)] [facility] Future Scheduled Test 2022-01-14 00:00:00 Screening for malignant neoplasm of lung (procedure) [code = 466266904] [facility] Future Scheduled Test 2022-01-14 00:00:00 Screening for malignant neoplasm of lung (procedure) [code = 205263365] [facility] Future Scheduled Test 2022-01-14 00:00:00 SHINGLES VACCINES (1 of 2) [code = SHINGLES VACCINES (1 of 2)] [facility] Future Scheduled Test 2022-01-14 00:00:00 SHINGLES VACCINES (1 of 2) [code = SHINGLES VACCINES (1 of 2)] [facility] Future Scheduled Test 2022-01-14 00:00:00 Screening for malignant neoplasm of lung (procedure) [code = 588258822] [facility] Future Scheduled Test 2022-01-14 00:00:00 SHINGLES VACCINES (1 of 2) [code = SHINGLES VACCINES (1 of 2)] [facility] Scheduled Test 2022-01-14 00:00:00 Screening for malignant neoplasm of lung (procedure) [code = 949874633] [facility] Scheduled Test 2022-01-14 00:00:00 SHINGLES VACCINES (1 of 2) [code = SHINGLES VACCINES (1 of 2)] [facility] Scheduled Test 2022-01-14 00:00:00 Screening for malignant neoplasm of lung (procedure) [code = 240090781] [facility] Future Scheduled Test 2022-01-14 00:00:00 SHINGLES VACCINES (1 of 2) [code = SHINGLES VACCINES (1 of 2)] [facility] Future Scheduled Test 2022-01-14 00:00:00 Screening for malignant neoplasm of lung (procedure) [code = 679748633] [facility] Future Scheduled Test 2022-01-14 00:00:00 Screening for malignant neoplasm of lung (procedure) [code = 237765631] [facility] Future Scheduled Test 2022-01-14 00:00:00 SHINGLES VACCINES (1 of 2) [code = SHINGLES VACCINES (1 of 2)] [facility] Future Scheduled Test 2022-01-14 00:00:00 SHINGLES VACCINES (1 of 2) [code = SHINGLES VACCINES (1 of 2)] [facility] Future Scheduled Test 2022-01-14 00:00:00 Screening for malignant neoplasm of lung (procedure) [code = 139859107] [facility] Future Scheduled Test 2022-01-14 00:00:00 SHINGLES VACCINES (1 of 2) [code = SHINGLES VACCINES (1 of 2)] [facility] Future Scheduled Test 2022-01-14 00:00:00 Screening for malignant neoplasm of lung (procedure) [code = 613971566] [facility] Future Scheduled Test 2022-01-14 00:00:00 SHINGLES VACCINES (1 of 2) [code = SHINGLES VACCINES (1 of 2)] [facility] Scheduled Test 2022-01-14 00:00:00 Screening for malignant neoplasm of lung (procedure) [code = 045516054] [facility] Future Scheduled Test 2022-01-14 00:00:00 SHINGLES VACCINES (1 of 2) [code = SHINGLES VACCINES (1 of 2)] [facility] Scheduled Test 2022-01-14 00:00:00 Screening for malignant neoplasm of lung (procedure) [code = 402334258] [facility] Scheduled Test 2022-01-14 00:00:00 SHINGLES VACCINES (1 of 2) [code = SHINGLES VACCINES (1 of 2)] [facility] Scheduled Test 2022-01-14 00:00:00 Screening for malignant neoplasm of lung (procedure) [code = 175629171] [facility] Scheduled Test 2022-01-14 00:00:00 SHINGLES VACCINES (1 of 2) [code = SHINGLES VACCINES (1 of 2)] [facility] Future Scheduled Test 2022-01-14 00:00:00 Screening for malignant neoplasm of lung (procedure) [code = 161792134] [facility] Future Scheduled Test 2022-01-14 00:00:00 Screening for malignant neoplasm of lung (procedure) [code = 817938176] [facility] Future Scheduled Test 2022-01-14 00:00:00 SHINGLES VACCINES (1 of 2) [code = SHINGLES VACCINES (1 of 2)] [facility] Future Scheduled Test 2022-01-14 00:00:00 SHINGLES VACCINES (1 of 2) [code = SHINGLES VACCINES (1 of 2)] [facility] Future Scheduled Test 2022-01-14 00:00:00 Screening for malignant neoplasm of lung (procedure) [code = 196957464] [facility] Future Scheduled Test 2022-01-14 00:00:00 SHINGLES VACCINES (1 of 2) [code = SHINGLES VACCINES (1 of 2)] [facility] Future Scheduled Test 2022-01-14 00:00:00 Screening for malignant neoplasm of lung (procedure) [code = 917953909] [facility] Future Scheduled Test 2022-01-14 00:00:00 SHINGLES VACCINES (1 of 2) [code = SHINGLES VACCINES (1 of 2)] [facility] Future Scheduled Test 2022-01-14 00:00:00 Screening for malignant neoplasm of lung (procedure) [code = 562705070] [facility] Scheduled Test 2022-01-14 00:00:00 SHINGLES VACCINES (1 of 2) [code = SHINGLES VACCINES (1 of 2)] [facility] Scheduled Test 2022-01-14 00:00:00 Screening for malignant neoplasm of lung (procedure) [code = 374373493] [facility] Scheduled Test 2022-01-14 00:00:00 SHINGLES VACCINES (1 of 2) [code = SHINGLES VACCINES (1 of 2)] [facility] Scheduled Test 2022-01-14 00:00:00 Screening for malignant neoplasm of lung (procedure) [code = 559918792] [facility] Scheduled Test 2022-01-14 00:00:00 SHINGLES VACCINES (1 of 2) [code = SHINGLES VACCINES (1 of 2)] [facility] Scheduled Test 2022-01-14 00:00:00 Screening for malignant neoplasm of lung (procedure) [code = 018656495] [facility] Scheduled Test 2022-01-14 00:00:00 SHINGLES VACCINES (1 of 2) [code = SHINGLES VACCINES (1 of 2)] [facility] Scheduled Test 2022-01-14 00:00:00 Screening for malignant neoplasm of lung (procedure) [code = 043448335] [facility] Future Scheduled Test 2022-01-14 00:00:00 SHINGLES VACCINES (1 of 2) [code = SHINGLES VACCINES (1 of 2)] [facility] Future Scheduled Test 2022-01-14 00:00:00 Screening for malignant neoplasm of lung (procedure) [code = 676797566] [facility] Future Scheduled Test 2022-01-14 00:00:00 SHINGLES VACCINES (1 of 2) [code = SHINGLES VACCINES (1 of 2)] [facility] Scheduled Test 2022-01-14 00:00:00 Screening for malignant neoplasm of lung (procedure) [code = 812219198] [facility] Scheduled Test 2022-01-14 00:00:00 SHINGLES VACCINES (1 of 2) [code = SHINGLES VACCINES (1 of 2)] [facility] Scheduled Test 2022-01-14 00:00:00 Screening for malignant neoplasm of lung (procedure) [code = 705091471] [facility] Future Scheduled Test 2022-01-14 00:00:00 SHINGLES VACCINES (1 of 2) [code = SHINGLES VACCINES (1 of 2)] [facility] Scheduled Test 2022-01-14 00:00:00 Screening for malignant neoplasm of lung (procedure) [code = 309378213] [facility] Scheduled Test 2022-01-14 00:00:00 SHINGLES VACCINES (1 of 2) [code = SHINGLES VACCINES (1 of 2)] [facility] Future Scheduled Test 2022-01-14 00:00:00 Screening for malignant neoplasm of lung (procedure) [code = 716947688] [facility] Future Scheduled Test 2022-01-14 00:00:00 SHINGLES VACCINES (1 of 2) [code = SHINGLES VACCINES (1 of 2)] [facility] Future Scheduled Test 2022-01-14 00:00:00 Screening for malignant neoplasm of lung (procedure) [code = 912339161] [facility] Future Scheduled Test 2022-01-14 00:00:00 SHINGLES VACCINES (1 of 2) [code = SHINGLES VACCINES (1 of 2)] [facility] Future Scheduled Test 2022-01-14 00:00:00 Screening for malignant neoplasm of lung (procedure) [code = 080209398] [facility] Future Scheduled Test 2022-01-14 00:00:00 SHINGLES VACCINES (1 of 2) [code = SHINGLES VACCINES (1 of 2)] [facility] Scheduled Test 2022-01-14 00:00:00 SHINGLES VACCINES (1 of 2) [code = SHINGLES VACCINES (1 of 2)] [facility] Scheduled Test 2022-01-14 00:00:00 SHINGLES VACCINES (1 of 2) [code = SHINGLES VACCINES (1 of 2)] [facility] Scheduled Test 2022-01-14 00:00:00 Screening for malignant neoplasm of lung (procedure) [code = 110165348] [facility] Scheduled Test 2022-01-14 00:00:00 SHINGLES VACCINES (1 of 2) [code = SHINGLES VACCINES (1 of 2)] [facility] Future Scheduled Test 2022-01-14 00:00:00 Screening for malignant neoplasm of lung (procedure) [code = 375582000] [facility] Scheduled Test 2022-01-14 00:00:00 SHINGLES VACCINES (1 of 2) [code = SHINGLES VACCINES (1 of 2)] [facility] Future Scheduled Test 2022-01-14 00:00:00 Screening for malignant neoplasm of lung (procedure) [code = 300831081] [facility] Future Scheduled Test 2022-01-14 00:00:00 SHINGLES VACCINES (1 of 2) [code = SHINGLES VACCINES (1 of 2)] [facility] Future Scheduled Test 2022-01-14 00:00:00 Screening for malignant neoplasm of lung (procedure) [code = 125994117] [facility] Future Scheduled Test 2022-01-14 00:00:00 SHINGLES VACCINES (1 of 2) [code = SHINGLES VACCINES (1 of 2)] [facility] Future Scheduled Test 2022-01-14 00:00:00 Screening for malignant neoplasm of lung (procedure) [code = 011562162] [facility] Future Scheduled Test 2022-01-14 00:00:00 SHINGLES VACCINES (1 of 2) [code = SHINGLES VACCINES (1 of 2)] [facility] Future Scheduled Test 2022-01-14 00:00:00 Screening for malignant neoplasm of lung (procedure) [code = 657504143] [facility] Future Scheduled Test 2022-01-14 00:00:00 SHINGLES VACCINES (1 of 2) [code = SHINGLES VACCINES (1 of 2)] [facility] Future Scheduled Test 2022-01-14 00:00:00 Screening for malignant neoplasm of lung (procedure) [code = 090384000] [facility] Scheduled Test 2022-01-14 00:00:00 SHINGLES VACCINES (1 of 2) [code = SHINGLES VACCINES (1 of 2)] [facility] Future Scheduled Test 2013-12-15 00:00:00 PNEUMOCOCCAL VACCINE 0-64 YRS (2 - PCV) [code = PNEUMOCOCCAL VACCINE 0-64 YRS (2 - PCV)] [facility] Future Scheduled Test 2013-12-15 00:00:00 PNEUMOCOCCAL VACCINE 0-64 YRS (2 - PCV) [code = PNEUMOCOCCAL VACCINE 0-64 YRS (2 - PCV)] [facility] Future Scheduled Test 2013-12-15 00:00:00 PNEUMOCOCCAL VACCINE 0-64 YRS (2 - PCV) [code = PNEUMOCOCCAL VACCINE 0-64 YRS (2 - PCV)] [facility] Future Scheduled Test 2013-12-15 00:00:00 PNEUMOCOCCAL VACCINE 0-64 YRS (2 - PCV) [code = PNEUMOCOCCAL VACCINE 0-64 YRS (2 - PCV)] [facility] Future Scheduled Test 2013-12-15 00:00:00 Pneumococcal Vaccine: 0-64 Years (2 - PCV) [code = Pneumococcal Vaccine: 0-64 Years (2 - PCV)] [facility] Future Scheduled Test 2013-12-15 00:00:00 Pneumococcal Vaccine: 0-64 Years (2 - PCV) [code = Pneumococcal Vaccine: 0-64 Years (2 - PCV)] [facility] Future Scheduled Test 2013-12-15 00:00:00 Pneumococcal Vaccine: 0-64 Years (2 - PCV) [code = Pneumococcal Vaccine: 0-64 Years (2 - PCV)] [facility] Future Scheduled Test 2013-12-15 00:00:00 Pneumococcal Vaccine: 0-64 Years (2 - PCV) [code = Pneumococcal Vaccine: 0-64 Years (2 - PCV)] [facility] Future Scheduled Test 2013-12-15 00:00:00 Pneumococcal Vaccine: 0-64 Years (2 - PCV) [code = Pneumococcal Vaccine: 0-64 Years (2 - PCV)] [facility] Future Scheduled Test 2013-12-15 00:00:00 Pneumococcal Vaccine: 0-64 Years (2 - PCV) [code = Pneumococcal Vaccine: 0-64 Years (2 - PCV)] [facility] Future Scheduled Test 2013-12-15 00:00:00 Pneumococcal Vaccine: 0-64 Years (2 - PCV) [code = Pneumococcal Vaccine: 0-64 Years (2 - PCV)] [facility] Future Scheduled Test 2013-12-15 00:00:00 Pneumococcal Vaccine: 0-64 Years (2 - PCV) [code = Pneumococcal Vaccine: 0-64 Years (2 - PCV)] [facility] Future Scheduled Test 2013-12-15 00:00:00 Pneumococcal Vaccine: 0-64 Years (2 - PCV) [code = Pneumococcal Vaccine: 0-64 Years (2 - PCV)] [facility] Future Scheduled Test 2013-12-15 00:00:00 Pneumococcal Vaccine: 0-64 Years (2 - PCV) [code = Pneumococcal Vaccine: 0-64 Years (2 - PCV)] [facility] Future Scheduled Test 2013-12-15 00:00:00 Pneumococcal Vaccine: 0-64 Years (2 - PCV) [code = Pneumococcal Vaccine: 0-64 Years (2 - PCV)] [facility] Future Scheduled Test 2013-12-15 00:00:00 Pneumococcal Vaccine: 0-64 Years (2 - PCV) [code = Pneumococcal Vaccine: 0-64 Years (2 - PCV)] [facility] Future Scheduled Test 2013-12-15 00:00:00 Pneumococcal Vaccine: 0-64 Years (2 - PCV) [code = Pneumococcal Vaccine: 0-64 Years (2 - PCV)] [facility] Future Scheduled Test 2013-12-15 00:00:00 Pneumococcal Vaccine: 0-64 Years (2 - PCV) [code = Pneumococcal Vaccine: 0-64 Years (2 - PCV)] [facility] Future Scheduled Test 2013-12-15 00:00:00 Pneumococcal Vaccine: 0-64 Years (2 - PCV) [code = Pneumococcal Vaccine: 0-64 Years (2 - PCV)] [facility] Scheduled Test 2013-12-15 00:00:00 Pneumococcal Vaccine: 0-64 Years (2 - PCV) [code = Pneumococcal Vaccine: 0-64 Years (2 - PCV)] [facility] Scheduled Test 2013-12-15 00:00:00 Pneumococcal Vaccine: 0-64 Years (2 - PCV) [code = Pneumococcal Vaccine: 0-64 Years (2 - PCV)] [facility] Future Scheduled Test 2013-12-15 00:00:00 Pneumococcal Vaccine: 0-64 Years (2 - PCV) [code = Pneumococcal Vaccine: 0-64 Years (2 - PCV)] [facility] Future Scheduled Test 2013-12-15 00:00:00 Pneumococcal Vaccine: 0-64 Years (2 - PCV) [code = Pneumococcal Vaccine: 0-64 Years (2 - PCV)] [facility] Future Scheduled Test 2013-12-15 00:00:00 Pneumococcal Vaccine: 0-64 Years (2 - PCV) [code = Pneumococcal Vaccine: 0-64 Years (2 - PCV)] [facility] Future Scheduled Test 2013-12-15 00:00:00 Pneumococcal Vaccine: 0-64 Years (2 of 2 - PCV) [code = Pneumococcal Vaccine: 0-64 Years (2 of 2 - PCV)] [facility] Future Scheduled Test 2013-12-15 00:00:00 Pneumococcal Vaccine: 0-64 Years (2 of 2 - PCV) [code = Pneumococcal Vaccine: 0-64 Years (2 of 2 - PCV)] [facility] Scheduled Test 2013-12-15 00:00:00 Pneumococcal Vaccine: 0-64 Years (2 of 2 - PCV) [code = Pneumococcal Vaccine: 0-64 Years (2 of 2 - PCV)] [facility] Scheduled Test 2013-12-15 00:00:00 Pneumococcal Vaccine: 0-64 Years (2 of 2 - PCV) [code = Pneumococcal Vaccine: 0-64 Years (2 of 2 - PCV)] [facility] Scheduled Test 2013-12-15 00:00:00 Pneumococcal Vaccine: 0-64 Years (2 of 2 - PCV) [code = Pneumococcal Vaccine: 0-64 Years (2 of 2 - PCV)] [facility] Scheduled Test 2013-12-15 00:00:00 Pneumococcal Vaccine: 0-64 Years (2 of 2 - PCV) [code = Pneumococcal Vaccine: 0-64 Years (2 of 2 - PCV)] [facility] Scheduled Test 2013-12-15 00:00:00 Pneumococcal Vaccine: 0-64 Years (2 of 2 - PCV) [code = Pneumococcal Vaccine: 0-64 Years (2 of 2 - PCV)] [facility] Scheduled Test 2013-12-15 00:00:00 Pneumococcal Vaccine: 0-64 Years (2 of 2 - PCV) [code = Pneumococcal Vaccine: 0-64 Years (2 of 2 - PCV)] [facility] Scheduled Test 2013-12-15 00:00:00 Pneumococcal Vaccine: 0-64 Years (2 of 2 - PCV) [code = Pneumococcal Vaccine: 0-64 Years (2 of 2 - PCV)] [facility] Scheduled Test 2013-12-15 00:00:00 Pneumococcal Vaccine: 0-64 Years (2 of 2 - PCV) [code = Pneumococcal Vaccine: 0-64 Years (2 of 2 - PCV)] [facility] Scheduled Test 2013-12-15 00:00:00 Pneumococcal Vaccine: 0-64 Years (2 of 2 - PCV) [code = Pneumococcal Vaccine: 0-64 Years (2 of 2 - PCV)] [facility] Scheduled Test 2013-12-15 00:00:00 Pneumococcal Vaccine: 0-64 Years (2 of 2 - PCV) [code = Pneumococcal Vaccine: 0-64 Years (2 of 2 - PCV)] [facility] Scheduled Test 2013-12-15 00:00:00 Pneumococcal Vaccine: 0-64 Years (2 of 2 - PCV) [code = Pneumococcal Vaccine: 0-64 Years (2 of 2 - PCV)] [facility] Scheduled Test 2013-12-15 00:00:00 Pneumococcal Vaccine: 0-64 Years (2 of 2 - PCV) [code = Pneumococcal Vaccine: 0-64 Years (2 of 2 - PCV)] [facility] Scheduled Test 2013-12-15 00:00:00 Pneumococcal Vaccine: 0-64 Years (2 of 2 - PCV) [code = Pneumococcal Vaccine: 0-64 Years (2 of 2 - PCV)] [facility] Scheduled Test 2013-12-15 00:00:00 Pneumococcal Vaccine: 0-64 Years (2 of 2 - PCV) [code = Pneumococcal Vaccine: 0-64 Years (2 of 2 - PCV)] [facility] Scheduled Test 2013-12-15 00:00:00 Pneumococcal Vaccine: 0-64 Years (2 of 2 - PCV) [code = Pneumococcal Vaccine: 0-64 Years (2 of 2 - PCV)] [facility] Scheduled Test 2013-12-15 00:00:00 Pneumococcal Vaccine: 0-64 Years (2 of 2 - PCV) [code = Pneumococcal Vaccine: 0-64 Years (2 of 2 - PCV)] [facility] Scheduled Test 2013-12-15 00:00:00 Pneumococcal Vaccine: 0-64 Years (2 of 2 - PCV) [code = Pneumococcal Vaccine: 0-64 Years (2 of 2 - PCV)] [facility] Scheduled Test 2013-12-15 00:00:00 Pneumococcal Vaccine: 0-64 Years (2 - PCV) [code = Pneumococcal Vaccine: 0-64 Years (2 - PCV)] [facility] Scheduled Test 2013-12-15 00:00:00 Pneumococcal Vaccine: 0-64 Years (2 - PCV) [code = Pneumococcal Vaccine: 0-64 Years (2 - PCV)] [facility] Scheduled Test 2013-12-15 00:00:00 Pneumococcal Vaccine: 0-64 Years (2 - PCV) [code = Pneumococcal Vaccine: 0-64 Years (2 - PCV)] [facility] Future Scheduled Test 1993-01-14 00:00:00 Screening for malignant neoplasm of cervix (procedure) [code = 809444366] [facility] Scheduled Test 1993-01-14 00:00:00 Screening for malignant neoplasm of cervix (procedure) [code = 176849989] [facility] Scheduled Test 1993-01-14 00:00:00 Screening for malignant neoplasm of cervix (procedure) [code = 673146368] [facility] Scheduled Test 1993-01-14 00:00:00 Screening for malignant neoplasm of cervix (procedure) [code = 258757035] [facility] Scheduled Test 1993-01-14 00:00:00 Screening for malignant neoplasm of cervix (procedure) [code = 622885341] [facility] Scheduled Test 1993-01-14 00:00:00 Screening for malignant neoplasm of cervix (procedure) [code = 062542907] [facility] Scheduled Test 1993-01-14 00:00:00 Screening for malignant neoplasm of cervix (procedure) [code = 221717416] [facility] Scheduled Test 1993-01-14 00:00:00 Screening for malignant neoplasm of cervix (procedure) [code = 678714736] [facility] Scheduled Test 1993-01-14 00:00:00 Screening for malignant neoplasm of cervix (procedure) [code = 853780839] [facility] Scheduled Test 1993-01-14 00:00:00 Screening for malignant neoplasm of cervix (procedure) [code = 782809894] [facility] Scheduled Test 1993-01-14 00:00:00 Screening for malignant neoplasm of cervix (procedure) [code = 640126693] [facility] Scheduled Test 1993-01-14 00:00:00 Screening for malignant neoplasm of cervix (procedure) [code = 574785046] [facility] Scheduled Test 1993-01-14 00:00:00 Screening for malignant neoplasm of cervix (procedure) [code = 471851194] [facility] Future Scheduled Test 1993-01-14 00:00:00 Screening for malignant neoplasm of cervix (procedure) [code = 963578099] [facility] Scheduled Test 1993-01-14 00:00:00 Screening for malignant neoplasm of cervix (procedure) [code = 759643269] [facility] Scheduled Test 1993-01-14 00:00:00 Screening for malignant neoplasm of cervix (procedure) [code = 639749251] [facility] Scheduled Test 1993-01-14 00:00:00 Screening for malignant neoplasm of cervix (procedure) [code = 161246323] [facility] Scheduled Test 1993-01-14 00:00:00 Screening for malignant neoplasm of cervix (procedure) [code = 689091017] [facility] Future Scheduled Test 1993-01-14 00:00:00 Screening for malignant neoplasm of cervix (procedure) [code = [id number]] [facility] Future Scheduled Test 1993-01-14 00:00:00 Screening for malignant neoplasm of cervix (procedure) [code = 412660168] [facility] Future Scheduled Test 1993-01-14 00:00:00 Screening for malignant neoplasm of cervix (procedure) [code = [id number]] [facility] Future Scheduled Test 1993-01-14 00:00:00 Screening for malignant neoplasm of cervix (procedure) [code = 722952651] [facility] Future Scheduled Test 1993-01-14 00:00:00 Screening for malignant neoplasm of cervix (procedure) [code = [id number]] [facility] Future Scheduled Test 1993-01-14 00:00:00 Screening for malignant neoplasm of cervix (procedure) [code = [id number]] [facility] Future Scheduled Test 1993-01-14 00:00:00 Screening for malignant neoplasm of cervix (procedure) [code = [id number]] [facility] Future Scheduled Test 1993-01-14 00:00:00 Screening for malignant neoplasm of cervix (procedure) [code = [id number]] [facility] Future Scheduled Test 1993-01-14 00:00:00 Screening for malignant neoplasm of cervix (procedure) [code = 986513363] [facility] Future Scheduled Test 1993-01-14 00:00:00 Screening for malignant neoplasm of cervix (procedure) [code = [id number]] [facility] Future Scheduled Test 1993-01-14 00:00:00 Screening for malignant neoplasm of cervix (procedure) [code = 383558760] [facility] Future Scheduled Test 1993-01-14 00:00:00 Screening for malignant neoplasm of cervix (procedure) [code = [id number]] [facility] Future Scheduled Test 1993-01-14 00:00:00 Screening for malignant neoplasm of cervix (procedure) [code = 287205850] [facility] Future Scheduled Test 1993-01-14 00:00:00 Screening for malignant neoplasm of cervix (procedure) [code = 706524203] [facility] Future Scheduled Test 1993-01-14 00:00:00 Screening for malignant neoplasm of cervix (procedure) [code = [id number]] [facility] Future Scheduled Test 1993-01-14 00:00:00 Screening for malignant neoplasm of cervix (procedure) [code = 563533649] [facility] Future Scheduled Test 1993-01-14 00:00:00 Screening for malignant neoplasm of cervix (procedure) [code = [id number]] [facility] Future Scheduled Test 1993-01-14 00:00:00 Screening for malignant neoplasm of cervix (procedure) [code = 114584443] [facility] Future Scheduled Test 1993-01-14 00:00:00 Screening for malignant neoplasm of cervix (procedure) [code = 633510818] [facility] Future Scheduled Test 1993-01-14 00:00:00 Screening for malignant neoplasm of cervix (procedure) [code = 800483869] [facility] Future Scheduled Test 1993-01-14 00:00:00 Screening for malignant neoplasm of cervix (procedure) [code = 543499160] [facility] Future Scheduled Test 1993-01-14 00:00:00 Screening for malignant neoplasm of cervix (procedure) [code = 341327608] [facility] Future Scheduled Test 1993-01-14 00:00:00 Screening for malignant neoplasm of cervix (procedure) [code = 974907988] [facility] Future Scheduled Test 1993-01-14 00:00:00 Screening for malignant neoplasm of cervix (procedure) [code = 509161183] [facility] Future Scheduled Test 1993-01-14 00:00:00 Screening for malignant neoplasm of cervix (procedure) [code = 847556883] [facility] Future Scheduled Test 1993-01-14 00:00:00 Screening for malignant neoplasm of cervix (procedure) [code = 622884135] [facility] Future Scheduled Test 1993-01-14 00:00:00 Screening for malignant neoplasm of cervix (procedure) [code = [id number]] [facility] Future Scheduled Test 1993-01-14 00:00:00 Screening for malignant neoplasm of cervix (procedure) [code = 760589283] [facility] Future Scheduled Test 1993-01-14 00:00:00 Screening for malignant neoplasm of cervix (procedure) [code = 640380174] [facility] Future Scheduled Test 1993-01-14 00:00:00 Screening for malignant neoplasm of cervix (procedure) [code = 395949272] [facility] Future Scheduled Test 1993-01-14 00:00:00 Screening for malignant neoplasm of cervix (procedure) [code = 455903875] [facility] Future Scheduled Test 1993-01-14 00:00:00 Screening for malignant neoplasm of cervix (procedure) [code = 441224666] [facility] Future Scheduled Test 1993-01-14 00:00:00 Screening for malignant neoplasm of cervix (procedure) [code = 616765686] [facility] Future Scheduled Test 1993-01-14 00:00:00 Screening for malignant neoplasm of cervix (procedure) [code = 222905833] [facility] Future Scheduled Test 1993-01-14 00:00:00 Screening for malignant neoplasm of cervix (procedure) [code = 347806050] [facility] Future Scheduled Test 1993-01-14 00:00:00 Screening for malignant neoplasm of cervix (procedure) [code = 785812671] [facility] Future Scheduled Test 1993-01-14 00:00:00 Screening for malignant neoplasm of cervix (procedure) [code = 465098469] [facility] Future Scheduled Test 1993-01-14 00:00:00 Screening for malignant neoplasm of cervix (procedure) [code = 373403442] [facility] Future Scheduled Test 1993-01-14 00:00:00 Screening for malignant neoplasm of cervix (procedure) [code = 597842327] [facility] Future Scheduled Test 1993-01-14 00:00:00 Screening for malignant neoplasm of cervix (procedure) [code = 208090978] [facility] Future Scheduled Test 1993-01-14 00:00:00 Screening for malignant neoplasm of cervix (procedure) [code = 582811654] [facility] Future Scheduled Test 1993-01-14 00:00:00 Screening for malignant neoplasm of cervix (procedure) [code = 251189398] [facility] Future Scheduled Test 1993-01-14 00:00:00 Screening for malignant neoplasm of cervix (procedure) [code = [id number]] [facility] Future Scheduled Test 1993-01-14 00:00:00 Screening for malignant neoplasm of cervix (procedure) [code = 571017806] [facility] Future Scheduled Test 1993-01-14 00:00:00 Screening for malignant neoplasm of cervix (procedure) [code = 575957309] [facility] Future Scheduled Test 1993-01-14 00:00:00 Screening for malignant neoplasm of cervix (procedure) [code = 416628926] [facility] Future Scheduled Test 1993-01-14 00:00:00 Screening for malignant neoplasm of cervix (procedure) [code = 628794419] [facility] Future Scheduled Test 1993-01-14 00:00:00 Screening for malignant neoplasm of cervix (procedure) [code = 167693859] [facility] Future Scheduled Test 1993-01-14 00:00:00 Screening for malignant neoplasm of cervix (procedure) [code = 489026247] [facility] Future Scheduled Test 1993-01-14 00:00:00 Screening for malignant neoplasm of cervix (procedure) [code = 437728260] [facility] Future Scheduled Test 1993-01-14 00:00:00 Screening for malignant neoplasm of cervix (procedure) [code = 387435115] [facility] Future Scheduled Test 1993-01-14 00:00:00 Screening for malignant neoplasm of cervix (procedure) [code = 118598122] [facility] Future Scheduled Test 1991-01-14 00:00:00 DTAP/TDAP/TD VACCINES (1 - Tdap) [code = DTAP/TDAP/TD VACCINES (1 - Tdap)] [facility] Future Scheduled Test 1991-01-14 00:00:00 DTAP/TDAP/TD VACCINES (1 - Tdap) [code = DTAP/TDAP/TD VACCINES (1 - Tdap)] [facility] Future Scheduled Test 1991-01-14 00:00:00 DTAP/TDAP/TD VACCINES (1 - Tdap) [code = DTAP/TDAP/TD VACCINES (1 - Tdap)] [facility] Future Scheduled Test 1991-01-14 00:00:00 DTAP/TDAP/TD VACCINES (1 - Tdap) [code = DTAP/TDAP/TD VACCINES (1 - Tdap)] [facility] Future Scheduled Test 1991-01-14 00:00:00 DTAP/TDAP/TD VACCINES (1 - Tdap) [code = DTAP/TDAP/TD VACCINES (1 - Tdap)] [facility] Future Scheduled Test 1991-01-14 00:00:00 DTAP/TDAP/TD VACCINES (1 - Tdap) [code = DTAP/TDAP/TD VACCINES (1 - Tdap)] [facility] Future Scheduled Test 1991-01-14 00:00:00 DTAP/TDAP/TD VACCINES (1 - Tdap) [code = DTAP/TDAP/TD VACCINES (1 - Tdap)] [facility] Future Scheduled Test 1991-01-14 00:00:00 DTAP/TDAP/TD VACCINES (1 - Tdap) [code = DTAP/TDAP/TD VACCINES (1 - Tdap)] [facility] Future Scheduled Test 1991-01-14 00:00:00 DTAP/TDAP/TD VACCINES (1 - Tdap) [code = DTAP/TDAP/TD VACCINES (1 - Tdap)] [facility] Future Scheduled Test 1991-01-14 00:00:00 DTAP/TDAP/TD VACCINES (1 - Tdap) [code = DTAP/TDAP/TD VACCINES (1 - Tdap)] [facility] Future Scheduled Test 1991-01-14 00:00:00 DTAP/TDAP/TD VACCINES (1 - Tdap) [code = DTAP/TDAP/TD VACCINES (1 - Tdap)] [facility] Future Scheduled Test 1991-01-14 00:00:00 DTAP/TDAP/TD VACCINES (1 - Tdap) [code = DTAP/TDAP/TD VACCINES (1 - Tdap)] [facility] Future Scheduled Test 1991-01-14 00:00:00 DTAP/TDAP/TD VACCINES (1 - Tdap) [code = DTAP/TDAP/TD VACCINES (1 - Tdap)] [facility] Future Scheduled Test 1991-01-14 00:00:00 DTAP/TDAP/TD VACCINES (1 - Tdap) [code = DTAP/TDAP/TD VACCINES (1 - Tdap)] [facility] Future Scheduled Test 1991-01-14 00:00:00 DTAP/TDAP/TD VACCINES (1 - Tdap) [code = DTAP/TDAP/TD VACCINES (1 - Tdap)] [facility] Future Scheduled Test 1991-01-14 00:00:00 DTAP/TDAP/TD VACCINES (1 - Tdap) [code = DTAP/TDAP/TD VACCINES (1 - Tdap)] [facility] Future Scheduled Test 1991-01-14 00:00:00 DTAP/TDAP/TD VACCINES (1 - Tdap) [code = DTAP/TDAP/TD VACCINES (1 - Tdap)] [facility] Future Scheduled Test 1991-01-14 00:00:00 DTAP/TDAP/TD VACCINES (1 - Tdap) [code = DTAP/TDAP/TD VACCINES (1 - Tdap)] [facility] Future Scheduled Test 1991-01-14 00:00:00 DTAP/TDAP/TD VACCINES (1 - Tdap) [code = DTAP/TDAP/TD VACCINES (1 - Tdap)] [facility] Future Scheduled Test 1991-01-14 00:00:00 DTAP/TDAP/TD VACCINES (1 - Tdap) [code = DTAP/TDAP/TD VACCINES (1 - Tdap)] [facility] Future Scheduled Test 1991-01-14 00:00:00 DTAP/TDAP/TD VACCINES (1 - Tdap) [code = DTAP/TDAP/TD VACCINES (1 - Tdap)] [facility] Future Scheduled Test 1991-01-14 00:00:00 DTAP/TDAP/TD VACCINES (1 - Tdap) [code = DTAP/TDAP/TD VACCINES (1 - Tdap)] [facility] Future Scheduled Test 1991-01-14 00:00:00 DTAP/TDAP/TD VACCINES (1 - Tdap) [code = DTAP/TDAP/TD VACCINES (1 - Tdap)] [facility] Future Scheduled Test 1991-01-14 00:00:00 DTAP/TDAP/TD VACCINES (1 - Tdap) [code = DTAP/TDAP/TD VACCINES (1 - Tdap)] [facility] Future Scheduled Test 1991-01-14 00:00:00 DTAP/TDAP/TD VACCINES (1 - Tdap) [code = DTAP/TDAP/TD VACCINES (1 - Tdap)] [facility] Future Scheduled Test 1991-01-14 00:00:00 DTAP/TDAP/TD VACCINES (1 - Tdap) [code = DTAP/TDAP/TD VACCINES (1 - Tdap)] [facility] Future Scheduled Test 1991-01-14 00:00:00 DTAP/TDAP/TD VACCINES (1 - Tdap) [code = DTAP/TDAP/TD VACCINES (1 - Tdap)] [facility] Future Scheduled Test 1991-01-14 00:00:00 DTAP/TDAP/TD VACCINES (1 - Tdap) [code = DTAP/TDAP/TD VACCINES (1 - Tdap)] [facility] Future Scheduled Test 1991-01-14 00:00:00 DTAP/TDAP/TD VACCINES (1 - Tdap) [code = DTAP/TDAP/TD VACCINES (1 - Tdap)] [facility] Future Scheduled Test 1991-01-14 00:00:00 DTAP/TDAP/TD VACCINES (1 - Tdap) [code = DTAP/TDAP/TD VACCINES (1 - Tdap)] [facility] Future Scheduled Test 1991-01-14 00:00:00 DTAP/TDAP/TD VACCINES (1 - Tdap) [code = DTAP/TDAP/TD VACCINES (1 - Tdap)] [facility] Future Scheduled Test 1991-01-14 00:00:00 DTAP/TDAP/TD VACCINES (1 - Tdap) [code = DTAP/TDAP/TD VACCINES (1 - Tdap)] [facility] Future Scheduled Test 1991-01-14 00:00:00 DTAP/TDAP/TD VACCINES (1 - Tdap) [code = DTAP/TDAP/TD VACCINES (1 - Tdap)] [facility] Future Scheduled Test 1991-01-14 00:00:00 DTAP/TDAP/TD VACCINES (1 - Tdap) [code = DTAP/TDAP/TD VACCINES (1 - Tdap)] [facility] Future Scheduled Test 1991-01-14 00:00:00 DTAP/TDAP/TD VACCINES (1 - Tdap) [code = DTAP/TDAP/TD VACCINES (1 - Tdap)] [facility] Future Scheduled Test 1991-01-14 00:00:00 DTAP/TDAP/TD VACCINES (1 - Tdap) [code = DTAP/TDAP/TD VACCINES (1 - Tdap)] [facility] Future Scheduled Test 1991-01-14 00:00:00 DTAP/TDAP/TD VACCINES (1 - Tdap) [code = DTAP/TDAP/TD VACCINES (1 - Tdap)] [facility] Future Scheduled Test 1991-01-14 00:00:00 DTAP/TDAP/TD VACCINES (1 - Tdap) [code = DTAP/TDAP/TD VACCINES (1 - Tdap)] [facility] Future Scheduled Test 1991-01-14 00:00:00 DTAP/TDAP/TD VACCINES (1 - Tdap) [code = DTAP/TDAP/TD VACCINES (1 - Tdap)] [facility] Future Scheduled Test 1991-01-14 00:00:00 DTAP/TDAP/TD VACCINES (1 - Tdap) [code = DTAP/TDAP/TD VACCINES (1 - Tdap)] [facility] Future Scheduled Test 1991-01-14 00:00:00 DTAP/TDAP/TD VACCINES (1 - Tdap) [code = DTAP/TDAP/TD VACCINES (1 - Tdap)] [facility] Future Scheduled Test 1991-01-14 00:00:00 DTAP/TDAP/TD VACCINES (1 - Tdap) [code = DTAP/TDAP/TD VACCINES (1 - Tdap)] [facility] Future Scheduled Test 1991-01-14 00:00:00 DTAP/TDAP/TD VACCINES (1 - Tdap) [code = DTAP/TDAP/TD VACCINES (1 - Tdap)] [facility] Future Scheduled Test 1991-01-14 00:00:00 DTAP/TDAP/TD VACCINES (1 - Tdap) [code = DTAP/TDAP/TD VACCINES (1 - Tdap)] [facility] Future Scheduled Test 1991-01-14 00:00:00 DTAP/TDAP/TD VACCINES (1 - Tdap) [code = DTAP/TDAP/TD VACCINES (1 - Tdap)] [facility] Future Scheduled Test 1991-01-14 00:00:00 DTAP/TDAP/TD VACCINES (1 - Tdap) [code = DTAP/TDAP/TD VACCINES (1 - Tdap)] [facility] Future Scheduled Test 1991-01-14 00:00:00 DTAP/TDAP/TD VACCINES (1 - Tdap) [code = DTAP/TDAP/TD VACCINES (1 - Tdap)] [facility] Future Scheduled Test 1991-01-14 00:00:00 DTAP/TDAP/TD VACCINES (1 - Tdap) [code = DTAP/TDAP/TD VACCINES (1 - Tdap)] [facility] Future Scheduled Test 1991-01-14 00:00:00 DTAP/TDAP/TD VACCINES (1 - Tdap) [code = DTAP/TDAP/TD VACCINES (1 - Tdap)] [facility] Future Scheduled Test 1991-01-14 00:00:00 DTAP/TDAP/TD VACCINES (1 - Tdap) [code = DTAP/TDAP/TD VACCINES (1 - Tdap)] [facility] Future Scheduled Test 1991-01-14 00:00:00 DTAP/TDAP/TD VACCINES (1 - Tdap) [code = DTAP/TDAP/TD VACCINES (1 - Tdap)] [facility] Future Scheduled Test 1991-01-14 00:00:00 DTAP/TDAP/TD VACCINES (1 - Tdap) [code = DTAP/TDAP/TD VACCINES (1 - Tdap)] [facility] Future Scheduled Test 1991-01-14 00:00:00 DTAP/TDAP/TD VACCINES (1 - Tdap) [code = DTAP/TDAP/TD VACCINES (1 - Tdap)] [facility] Future Scheduled Test 1991-01-14 00:00:00 DTAP/TDAP/TD VACCINES (1 - Tdap) [code = DTAP/TDAP/TD VACCINES (1 - Tdap)] [facility] Future Scheduled Test 1991-01-14 00:00:00 DTAP/TDAP/TD VACCINES (1 - Tdap) [code = DTAP/TDAP/TD VACCINES (1 - Tdap)] [facility] Future Scheduled Test 1991-01-14 00:00:00 DTAP/TDAP/TD VACCINES (1 - Tdap) [code = DTAP/TDAP/TD VACCINES (1 - Tdap)] [facility] Future Scheduled Test 1991-01-14 00:00:00 DTAP/TDAP/TD VACCINES (1 - Tdap) [code = DTAP/TDAP/TD VACCINES (1 - Tdap)] [facility] Future Scheduled Test 1991-01-14 00:00:00 DTAP/TDAP/TD VACCINES (1 - Tdap) [code = DTAP/TDAP/TD VACCINES (1 - Tdap)] [facility] Future Scheduled Test 1991-01-14 00:00:00 DTAP/TDAP/TD VACCINES (1 - Tdap) [code = DTAP/TDAP/TD VACCINES (1 - Tdap)] [facility] Future Scheduled Test 1991-01-14 00:00:00 DTAP/TDAP/TD VACCINES (1 - Tdap) [code = DTAP/TDAP/TD VACCINES (1 - Tdap)] [facility] Future Scheduled Test 1991-01-14 00:00:00 DTAP/TDAP/TD VACCINES (1 - Tdap) [code = DTAP/TDAP/TD VACCINES (1 - Tdap)] [facility] Future Scheduled Test 1991-01-14 00:00:00 DTAP/TDAP/TD VACCINES (1 - Tdap) [code = DTAP/TDAP/TD VACCINES (1 - Tdap)] [facility] Future Scheduled Test 1991-01-14 00:00:00 DTAP/TDAP/TD VACCINES (1 - Tdap) [code = DTAP/TDAP/TD VACCINES (1 - Tdap)] [facility] Future Scheduled Test 1991-01-14 00:00:00 DTAP/TDAP/TD VACCINES (1 - Tdap) [code = DTAP/TDAP/TD VACCINES (1 - Tdap)] [facility] Future Scheduled Test 1991-01-14 00:00:00 DTAP/TDAP/TD VACCINES (1 - Tdap) [code = DTAP/TDAP/TD VACCINES (1 - Tdap)] [facility] Future Scheduled Test 1991-01-14 00:00:00 DTAP/TDAP/TD VACCINES (1 - Tdap) [code = DTAP/TDAP/TD VACCINES (1 - Tdap)] [facility] Future Scheduled Test 1991-01-14 00:00:00 DTAP/TDAP/TD VACCINES (1 - Tdap) [code = DTAP/TDAP/TD VACCINES (1 - Tdap)] [facility] Future Scheduled Test 1991-01-14 00:00:00 DTAP/TDAP/TD VACCINES (1 - Tdap) [code = DTAP/TDAP/TD VACCINES (1 - Tdap)] [facility] Future Scheduled Test 1991-01-14 00:00:00 DTAP/TDAP/TD VACCINES (1 - Tdap) [code = DTAP/TDAP/TD VACCINES (1 - Tdap)] [facility] Future Scheduled Test 1991-01-14 00:00:00 DTAP/TDAP/TD VACCINES (1 - Tdap) [code = DTAP/TDAP/TD VACCINES (1 - Tdap)] [facility] Future Scheduled Test 1990-01-14 00:00:00 HEPATITIS C SCREENING [code = HEPATITIS C SCREENING] [facility] Future Scheduled Test 1990-01-14 00:00:00 HEPATITIS C SCREENING [code = HEPATITIS C SCREENING] [facility] Future Scheduled Test 1990-01-14 00:00:00 HEPATITIS C SCREENING [code = HEPATITIS C SCREENING] [facility] Future Scheduled Test 1990-01-14 00:00:00 HEPATITIS C SCREENING [code = HEPATITIS C SCREENING] [facility] Future Scheduled Test 1990-01-14 00:00:00 HEPATITIS C SCREENING [code = HEPATITIS C SCREENING] [facility] Future Scheduled Test 1990-01-14 00:00:00 HEPATITIS C SCREENING [code = HEPATITIS C SCREENING] [facility] Future Scheduled Test 1990-01-14 00:00:00 HEPATITIS C SCREENING [code = HEPATITIS C SCREENING] [facility] Future Scheduled Test 1990-01-14 00:00:00 HEPATITIS C SCREENING [code = HEPATITIS C SCREENING] [facility] Future Scheduled Test 1990-01-14 00:00:00 HEPATITIS C SCREENING [code = HEPATITIS C SCREENING] [facility] Future Scheduled Test 1990-01-14 00:00:00 HEPATITIS C SCREENING [code = HEPATITIS C SCREENING] [facility] Future Scheduled Test 1990-01-14 00:00:00 HEPATITIS C SCREENING [code = HEPATITIS C SCREENING] [facility] Future Scheduled Test 1990-01-14 00:00:00 HEPATITIS C SCREENING [code = HEPATITIS C SCREENING] [facility] Future Scheduled Test 1990-01-14 00:00:00 HEPATITIS C SCREENING [code = HEPATITIS C SCREENING] [facility] Future Scheduled Test 1990-01-14 00:00:00 HEPATITIS C SCREENING [code = HEPATITIS C SCREENING] [facility] Future Scheduled Test 1990-01-14 00:00:00 HEPATITIS C SCREENING [code = HEPATITIS C SCREENING] [facility] Future Scheduled Test 1990-01-14 00:00:00 HEPATITIS C SCREENING [code = HEPATITIS C SCREENING] [facility] Future Scheduled Test 1990-01-14 00:00:00 HEPATITIS C SCREENING [code = HEPATITIS C SCREENING] [facility] Future Scheduled Test 1990-01-14 00:00:00 HEPATITIS C SCREENING [code = HEPATITIS C SCREENING] [facility] Future Scheduled Test 1990-01-14 00:00:00 HEPATITIS C SCREENING [code = HEPATITIS C SCREENING] [facility] Future Scheduled Test 1990-01-14 00:00:00 HEPATITIS C SCREENING [code = HEPATITIS C SCREENING] [facility] Future Scheduled Test 1990-01-14 00:00:00 HEPATITIS C SCREENING [code = HEPATITIS C SCREENING] [facility] Future Scheduled Test 1990-01-14 00:00:00 HEPATITIS C SCREENING [code = HEPATITIS C SCREENING] [facility] Future Scheduled Test 1990-01-14 00:00:00 HEPATITIS C SCREENING [code = HEPATITIS C SCREENING] [facility] Future Scheduled Test 1990-01-14 00:00:00 HEPATITIS C SCREENING [code = HEPATITIS C SCREENING] [facility] Future Scheduled Test 1990-01-14 00:00:00 HEPATITIS C SCREENING [code = HEPATITIS C SCREENING] [facility] Future Scheduled Test 1990-01-14 00:00:00 HEPATITIS C SCREENING [code = HEPATITIS C SCREENING] [facility] Future Scheduled Test 1990-01-14 00:00:00 HEPATITIS C SCREENING [code = HEPATITIS C SCREENING] [facility] Future Scheduled Test 1990-01-14 00:00:00 HEPATITIS C SCREENING [code = HEPATITIS C SCREENING] [facility] Future Scheduled Test 1990-01-14 00:00:00 HEPATITIS C SCREENING [code = HEPATITIS C SCREENING] [facility] Future Scheduled Test 1990-01-14 00:00:00 HEPATITIS C SCREENING [code = HEPATITIS C SCREENING] [facility] Future Scheduled Test 1990-01-14 00:00:00 HEPATITIS C SCREENING [code = HEPATITIS C SCREENING] [facility] Future Scheduled Test 1990-01-14 00:00:00 HEPATITIS C SCREENING [code = HEPATITIS C SCREENING] [facility] Future Scheduled Test 1990-01-14 00:00:00 HEPATITIS C SCREENING [code = HEPATITIS C SCREENING] [facility] Future Scheduled Test 1990-01-14 00:00:00 HEPATITIS C SCREENING [code = HEPATITIS C SCREENING] [facility] Future Scheduled Test 1990-01-14 00:00:00 HEPATITIS C SCREENING [code = HEPATITIS C SCREENING] [facility] Future Scheduled Test 1990-01-14 00:00:00 HEPATITIS C SCREENING [code = HEPATITIS C SCREENING] [facility] Future Scheduled Test 1990-01-14 00:00:00 HEPATITIS C SCREENING [code = HEPATITIS C SCREENING] [facility] Future Scheduled Test 1990-01-14 00:00:00 HEPATITIS C SCREENING [code = HEPATITIS C SCREENING] [facility] Future Scheduled Test 1990-01-14 00:00:00 HEPATITIS C SCREENING [code = HEPATITIS C SCREENING] [facility] Future Scheduled Test 1990-01-14 00:00:00 HEPATITIS C SCREENING [code = HEPATITIS C SCREENING] [facility] Future Scheduled Test 1990-01-14 00:00:00 HEPATITIS C SCREENING [code = HEPATITIS C SCREENING] [facility] Future Scheduled Test 1990-01-14 00:00:00 HEPATITIS C SCREENING [code = HEPATITIS C SCREENING] [facility] Future Scheduled Test 1990-01-14 00:00:00 HEPATITIS C SCREENING [code = HEPATITIS C SCREENING] [facility] Future Scheduled Test 1990-01-14 00:00:00 HEPATITIS C SCREENING [code = HEPATITIS C SCREENING] [facility] Future Scheduled Test 1990-01-14 00:00:00 HEPATITIS C SCREENING [code = HEPATITIS C SCREENING] [facility] Future Scheduled Test 1990-01-14 00:00:00 HEPATITIS C SCREENING [code = HEPATITIS C SCREENING] [facility] Future Scheduled Test 1990-01-14 00:00:00 HEPATITIS C SCREENING [code = HEPATITIS C SCREENING] [facility] Future Scheduled Test 1990-01-14 00:00:00 HEPATITIS C SCREENING [code = HEPATITIS C SCREENING] [facility] Future Scheduled Test 1990-01-14 00:00:00 HEPATITIS C SCREENING [code = HEPATITIS C SCREENING] [facility] Future Scheduled Test 1990-01-14 00:00:00 HEPATITIS C SCREENING [code = HEPATITIS C SCREENING] [facility] Future Scheduled Test 1990-01-14 00:00:00 HEPATITIS C SCREENING [code = HEPATITIS C SCREENING] [facility] Future Scheduled Test 1990-01-14 00:00:00 HEPATITIS C SCREENING [code = HEPATITIS C SCREENING] [facility] Future Scheduled Test 1990-01-14 00:00:00 HEPATITIS C SCREENING [code = HEPATITIS C SCREENING] [facility] Future Scheduled Test 1990-01-14 00:00:00 HEPATITIS C SCREENING [code = HEPATITIS C SCREENING] [facility] Future Scheduled Test 1990-01-14 00:00:00 HEPATITIS C SCREENING [code = HEPATITIS C SCREENING] [facility] Future Scheduled Test 1990-01-14 00:00:00 HEPATITIS C SCREENING [code = HEPATITIS C SCREENING] [facility] Future Scheduled Test 1990-01-14 00:00:00 HEPATITIS C SCREENING [code = HEPATITIS C SCREENING] [facility] Future Scheduled Test 1990-01-14 00:00:00 HEPATITIS C SCREENING [code = HEPATITIS C SCREENING] [facility] Future Scheduled Test 1990-01-14 00:00:00 HEPATITIS C SCREENING [code = HEPATITIS C SCREENING] [facility] Future Scheduled Test 1990-01-14 00:00:00 HEPATITIS C SCREENING [code = HEPATITIS C SCREENING] [facility] Future Scheduled Test 1990-01-14 00:00:00 HEPATITIS C SCREENING [code = HEPATITIS C SCREENING] [facility] Future Scheduled Test 1990-01-14 00:00:00 HEPATITIS C SCREENING [code = HEPATITIS C SCREENING] [facility] Future Scheduled Test 1990-01-14 00:00:00 HEPATITIS C SCREENING [code = HEPATITIS C SCREENING] [facility] Future Scheduled Test 1990-01-14 00:00:00 HEPATITIS C SCREENING [code = HEPATITIS C SCREENING] [facility] Future Scheduled Test 1990-01-14 00:00:00 HEPATITIS C SCREENING [code = HEPATITIS C SCREENING] [facility] Future Scheduled Test 1990-01-14 00:00:00 HEPATITIS C SCREENING [code = HEPATITIS C SCREENING] [facility] Future Scheduled Test 1990-01-14 00:00:00 HEPATITIS C SCREENING [code = HEPATITIS C SCREENING] [facility] Future Scheduled Test 1990-01-14 00:00:00 HEPATITIS C SCREENING [code = HEPATITIS C SCREENING] [facility] Future Scheduled Test 1990-01-14 00:00:00 HEPATITIS C SCREENING [code = HEPATITIS C SCREENING] [facility] Future Scheduled Test 1990-01-14 00:00:00 HEPATITIS C SCREENING [code = HEPATITIS C SCREENING] [facility] Future Scheduled Test 1987-01-14 00:00:00 Human immunodeficiency virus screening (procedure) [code = 571780770] [facility] Future Scheduled Test 1987-01-14 00:00:00 Human immunodeficiency virus screening (procedure) [code = 130891410] [facility] Future Scheduled Test 1984 00:00:00 Tobacco Cessation Counseling and Screening (12+) [code = Tobacco Cessation Counseling and Screening (12+)] [facility] Future Scheduled Test 1984 00:00:00 Tobacco Cessation Counseling and Screening (12+) [code = Tobacco Cessation Counseling and Screening (12+)] [facility] Future Scheduled Test 1984 00:00:00 Tobacco Cessation Counseling and Screening (12+) [code = Tobacco Cessation Counseling and Screening (12+)] [facility] Future Scheduled Test 1984 00:00:00 Tobacco Cessation Counseling and Screening (12+) [code = Tobacco Cessation Counseling and Screening (12+)] [facility] Future Scheduled Test 1984 00:00:00 Tobacco Cessation Counseling and Screening (12+) [code = Tobacco Cessation Counseling and Screening (12+)] [facility] Scheduled Test 1984 00:00:00 Tobacco Cessation Counseling and Screening (12+) [code = Tobacco Cessation Counseling and Screening (12+)] [facility] Scheduled Test 1984 00:00:00 Tobacco Cessation Counseling and Screening (12+) [code = Tobacco Cessation Counseling and Screening (12+)] [facility] Scheduled Test 1984 00:00:00 Tobacco Cessation Counseling and Screening (12+) [code = Tobacco Cessation Counseling and Screening (12+)] [facility] Scheduled Test 1984 00:00:00 Tobacco Cessation Counseling and Screening (12+) [code = Tobacco Cessation Counseling and Screening (12+)] [facility] Scheduled Test 1984 00:00:00 Tobacco Cessation Counseling and Screening (12+) [code = Tobacco Cessation Counseling and Screening (12+)] [facility] Future Scheduled Test 1984 00:00:00 Tobacco Cessation Counseling and Screening (12+) [code = Tobacco Cessation Counseling and Screening (12+)] [facility] Future Scheduled Test 1984 00:00:00 Tobacco Cessation Counseling and Screening (12+) [code = Tobacco Cessation Counseling and Screening (12+)] [facility] Future Scheduled Test 1984 00:00:00 Tobacco Cessation Counseling and Screening (12+) [code = Tobacco Cessation Counseling and Screening (12+)] [facility] Future Scheduled Test 1984 00:00:00 Tobacco Cessation Counseling and Screening (12+) [code = Tobacco Cessation Counseling and Screening (12+)] [facility] Future Scheduled Test 1984 00:00:00 Tobacco Cessation Counseling and Screening (12+) [code = Tobacco Cessation Counseling and Screening (12+)] [facility] Future Scheduled Test 1984 00:00:00 Tobacco Cessation Counseling and Screening (12+) [code = Tobacco Cessation Counseling and Screening (12+)] [facility] Future Scheduled Test 1984 00:00:00 Tobacco Cessation Counseling and Screening (12+) [code = Tobacco Cessation Counseling and Screening (12+)] [facility] Future Scheduled Test 1984 00:00:00 Tobacco Cessation Counseling and Screening (12+) [code = Tobacco Cessation Counseling and Screening (12+)] [facility] Scheduled Test 1984 00:00:00 Tobacco Cessation Counseling and Screening (12+) [code = Tobacco Cessation Counseling and Screening (12+)] [facility] Scheduled Test 1984 00:00:00 Tobacco Cessation Counseling and Screening (12+) [code = Tobacco Cessation Counseling and Screening (12+)] [facility] Future Scheduled Test 1984 00:00:00 Tobacco Cessation Counseling and Screening (12+) [code = Tobacco Cessation Counseling and Screening (12+)] [facility] Scheduled Test 1984 00:00:00 Tobacco Cessation Counseling and Screening (12+) [code = Tobacco Cessation Counseling and Screening (12+)] [facility] Future Scheduled Test 1984 00:00:00 Tobacco Cessation Counseling and Screening (12+) [code = Tobacco Cessation Counseling and Screening (12+)] [facility] Future Scheduled Test 1972 00:00:00 Screening for malignant neoplasm of breast (procedure) [code = [id number]] [facility] Future Scheduled Test 1972 00:00:00 CT Colonography (combo) [code = CT Colonography (combo)] [facility] Future Scheduled Test 1972 00:00:00 Screening for malignant neoplasm of colon (procedure) [code = 346364116] [facility] Future Scheduled Test 1972 00:00:00 Screening for malignant neoplasm of colon (procedure) [code = 716717378] [facility] Future Scheduled Test 1972 00:00:00 Screening for malignant neoplasm of colon (procedure) [code = 331551376] [facility] Future Scheduled Test 1972 00:00:00 Screening for malignant neoplasm of colon (procedure) [code = 453873334] [facility] Future Scheduled Test 1972 00:00:00 Sigmoidoscopy [code = Sigmoidoscopy] [facility] Future Scheduled Test 1972 00:00:00 Screening for malignant neoplasm of breast (procedure) [code = 921006428] [facility] Future Scheduled Test 1972 00:00:00 CT Colonography (combo) [code = CT Colonography (combo)] [facility] Future Scheduled Test 1972 00:00:00 Screening for malignant neoplasm of colon (procedure) [code = 884636732] [facility] Future Scheduled Test 1972 00:00:00 Screening for malignant neoplasm of colon (procedure) [code = 213457369] [facility] Future Scheduled Test 1972 00:00:00 Screening for malignant neoplasm of colon (procedure) [code = 179863251] [facility] Future Scheduled Test 1972 00:00:00 Screening for malignant neoplasm of colon (procedure) [code = 744085546] [facility] Future Scheduled Test 1972 00:00:00 Sigmoidoscopy [code = Sigmoidoscopy] [facility] Future Scheduled Test 1972 00:00:00 Screening for malignant neoplasm of breast (procedure) [code = 712974911] [facility] Future Scheduled Test 1972 00:00:00 CT Colonography (combo) [code = CT Colonography (combo)] [facility] Future Scheduled Test 1972 00:00:00 Screening for malignant neoplasm of colon (procedure) [code = 796554994] [facility] Future Scheduled Test 1972 00:00:00 Screening for malignant neoplasm of colon (procedure) [code = 887875296] [facility] Future Scheduled Test 1972 00:00:00 Screening for malignant neoplasm of colon (procedure) [code = 832474088] [facility] Future Scheduled Test 1972 00:00:00 Screening for malignant neoplasm of colon (procedure) [code = 691916061] [facility] Future Scheduled Test 1972 00:00:00 Sigmoidoscopy [code = Sigmoidoscopy] [facility] Future Scheduled Test 1972 00:00:00 Screening for malignant neoplasm of breast (procedure) [code = 873026745] [facility] Future Scheduled Test 1972 00:00:00 CT Colonography (combo) [code = CT Colonography (combo)] [facility] Future Scheduled Test 1972 00:00:00 Screening for malignant neoplasm of colon (procedure) [code = 282220934] [facility] Future Scheduled Test 1972 00:00:00 Screening for malignant neoplasm of colon (procedure) [code = 463150867] [facility] Future Scheduled Test 1972 00:00:00 Screening for malignant neoplasm of colon (procedure) [code = 483875476] [facility] Future Scheduled Test 1972 00:00:00 Screening for malignant neoplasm of colon (procedure) [code = 776314527] [facility] Future Scheduled Test 1972 00:00:00 Sigmoidoscopy [code = Sigmoidoscopy] [facility] Future Scheduled Test 1972 00:00:00 Screening for malignant neoplasm of breast (procedure) [code = 814827546] [facility] Future Scheduled Test 1972 00:00:00 CT Colonography (combo) [code = CT Colonography (combo)] [facility] Future Scheduled Test 1972 00:00:00 Screening for malignant neoplasm of colon (procedure) [code = 338277360] [facility] Future Scheduled Test 1972 00:00:00 Screening for malignant neoplasm of colon (procedure) [code = 283953948] [facility] Future Scheduled Test 1972 00:00:00 Screening for malignant neoplasm of colon (procedure) [code = 356347697] [facility] Future Scheduled Test 1972 00:00:00 Screening for malignant neoplasm of colon (procedure) [code = 627172615] [facility] Future Scheduled Test 1972 00:00:00 Sigmoidoscopy [code = Sigmoidoscopy] [facility] Future Scheduled Test 1972 00:00:00 Screening for malignant neoplasm of breast (procedure) [code = 243225095] [facility] Future Scheduled Test 1972 00:00:00 CT Colonography (combo) [code = CT Colonography (combo)] [facility] Future Scheduled Test 1972 00:00:00 Screening for malignant neoplasm of colon (procedure) [code = 768196999] [facility] Future Scheduled Test 1972 00:00:00 Screening for malignant neoplasm of colon (procedure) [code = 434618217] [facility] Future Scheduled Test 1972 00:00:00 Screening for malignant neoplasm of colon (procedure) [code = 499455103] [facility] Future Scheduled Test 1972 00:00:00 Screening for malignant neoplasm of colon (procedure) [code = 748145211] [facility] Future Scheduled Test 1972 00:00:00 Sigmoidoscopy [code = Sigmoidoscopy] [facility] Future Scheduled Test 1972 00:00:00 Screening for malignant neoplasm of breast (procedure) [code = 778701655] [facility] Future Scheduled Test 1972 00:00:00 CT Colonography (combo) [code = CT Colonography (combo)] [facility] Future Scheduled Test 1972 00:00:00 Screening for malignant neoplasm of colon (procedure) [code = 851845600] [facility] Future Scheduled Test 1972 00:00:00 Screening for malignant neoplasm of colon (procedure) [code = 292074005] [facility] Future Scheduled Test 1972 00:00:00 Screening for malignant neoplasm of colon (procedure) [code = 412605988] [facility] Future Scheduled Test 1972 00:00:00 Screening for malignant neoplasm of colon (procedure) [code = 332071271] [facility] Future Scheduled Test 1972 00:00:00 Sigmoidoscopy [code = Sigmoidoscopy] [facility] Future Scheduled Test 1972 00:00:00 Screening for malignant neoplasm of breast (procedure) [code = 274192168] [facility] Future Scheduled Test 1972 00:00:00 CT Colonography (combo) [code = CT Colonography (combo)] [facility] Future Scheduled Test 1972 00:00:00 Screening for malignant neoplasm of colon (procedure) [code = 306110412] [facility] Future Scheduled Test 1972 00:00:00 Screening for malignant neoplasm of colon (procedure) [code = 962026513] [facility] Future Scheduled Test 1972 00:00:00 Screening for malignant neoplasm of colon (procedure) [code = 152658280] [facility] Future Scheduled Test 1972 00:00:00 Screening for malignant neoplasm of colon (procedure) [code = 965275407] [facility] Future Scheduled Test 1972 00:00:00 Sigmoidoscopy [code = Sigmoidoscopy] [facility] Future Scheduled Test 1972 00:00:00 Screening for malignant neoplasm of breast (procedure) [code = 587566057] [facility] Future Scheduled Test 1972 00:00:00 CT Colonography (combo) [code = CT Colonography (combo)] [facility] Future Scheduled Test 1972 00:00:00 Screening for malignant neoplasm of colon (procedure) [code = 860542244] [facility] Future Scheduled Test 1972 00:00:00 Screening for malignant neoplasm of colon (procedure) [code = 126210505] [facility] Future Scheduled Test 1972 00:00:00 Screening for malignant neoplasm of colon (procedure) [code = 068818022] [facility] Future Scheduled Test 1972 00:00:00 Screening for malignant neoplasm of colon (procedure) [code = 726312479] [facility] Future Scheduled Test 1972 00:00:00 Sigmoidoscopy [code = Sigmoidoscopy] [facility] Future Scheduled Test 1972 00:00:00 Screening for malignant neoplasm of breast (procedure) [code = 492130096] [facility] Future Scheduled Test 1972 00:00:00 CT Colonography (combo) [code = CT Colonography (combo)] [facility] Future Scheduled Test 1972 00:00:00 Screening for malignant neoplasm of colon (procedure) [code = 646259967] [facility] Future Scheduled Test 1972 00:00:00 Screening for malignant neoplasm of colon (procedure) [code = 294213948] [facility] Future Scheduled Test 1972 00:00:00 Screening for malignant neoplasm of colon (procedure) [code = 400693872] [facility] Future Scheduled Test 1972 00:00:00 Screening for malignant neoplasm of colon (procedure) [code = 789598998] [facility] Future Scheduled Test 1972 00:00:00 Sigmoidoscopy [code = Sigmoidoscopy] [facility] Future Scheduled Test 1972 00:00:00 Screening for malignant neoplasm of breast (procedure) [code = 371215960] [facility] Future Scheduled Test 1972 00:00:00 CT Colonography (combo) [code = CT Colonography (combo)] [facility] Future Scheduled Test 1972 00:00:00 Screening for malignant neoplasm of colon (procedure) [code = 191771301] [facility] Future Scheduled Test 1972 00:00:00 Screening for malignant neoplasm of colon (procedure) [code = 910748395] [facility] Future Scheduled Test 1972 00:00:00 Screening for malignant neoplasm of colon (procedure) [code = 905547307] [facility] Future Scheduled Test 1972 00:00:00 Screening for malignant neoplasm of colon (procedure) [code = 160146428] [facility] Future Scheduled Test 1972 00:00:00 Sigmoidoscopy [code = Sigmoidoscopy] [facility] Future Scheduled Test 1972 00:00:00 Screening for malignant neoplasm of breast (procedure) [code = 070790971] [facility] Future Scheduled Test 1972 00:00:00 CT Colonography (combo) [code = CT Colonography (combo)] [facility] Future Scheduled Test 1972 00:00:00 Screening for malignant neoplasm of colon (procedure) [code = 671656750] [facility] Future Scheduled Test 1972 00:00:00 Screening for malignant neoplasm of colon (procedure) [code = 731190668] [facility] Future Scheduled Test 1972 00:00:00 Screening for malignant neoplasm of colon (procedure) [code = 955075072] [facility] Future Scheduled Test 1972 00:00:00 Screening for malignant neoplasm of colon (procedure) [code = 973107745] [facility] Future Scheduled Test 1972 00:00:00 Sigmoidoscopy [code = Sigmoidoscopy] [facility] Future Scheduled Test 1972 00:00:00 Screening for malignant neoplasm of breast (procedure) [code = 077280809] [facility] Future Scheduled Test 1972 00:00:00 CT Colonography (combo) [code = CT Colonography (combo)] [facility] Future Scheduled Test 1972 00:00:00 Screening for malignant neoplasm of colon (procedure) [code = 306549657] [facility] Future Scheduled Test 1972 00:00:00 Screening for malignant neoplasm of colon (procedure) [code = 787384502] [facility] Future Scheduled Test 1972 00:00:00 Screening for malignant neoplasm of colon (procedure) [code = 118421993] [facility] Future Scheduled Test 1972 00:00:00 Screening for malignant neoplasm of colon (procedure) [code = 275455583] [facility] Future Scheduled Test 1972 00:00:00 Sigmoidoscopy [code = Sigmoidoscopy] [facility] Future Scheduled Test 1972 00:00:00 Screening for malignant neoplasm of breast (procedure) [code = 603838473] [facility] Future Scheduled Test 1972 00:00:00 CT Colonography (combo) [code = CT Colonography (combo)] [facility] Future Scheduled Test 1972 00:00:00 Screening for malignant neoplasm of colon (procedure) [code = 846455609] [facility] Future Scheduled Test 1972 00:00:00 Screening for malignant neoplasm of colon (procedure) [code = 218842908] [facility] Future Scheduled Test 1972 00:00:00 Screening for malignant neoplasm of colon (procedure) [code = 417228776] [facility] Future Scheduled Test 1972 00:00:00 Screening for malignant neoplasm of colon (procedure) [code = 439275527] [facility] Future Scheduled Test 1972 00:00:00 Sigmoidoscopy [code = Sigmoidoscopy] [facility] Future Scheduled Test 1972 00:00:00 Screening for malignant neoplasm of breast (procedure) [code = 826422448] [facility] Future Scheduled Test 1972 00:00:00 CT Colonography (combo) [code = CT Colonography (combo)] [facility] Future Scheduled Test 1972 00:00:00 Screening for malignant neoplasm of colon (procedure) [code = 116345612] [facility] Future Scheduled Test 1972 00:00:00 Screening for malignant neoplasm of colon (procedure) [code = 739470983] [facility] Future Scheduled Test 1972 00:00:00 Screening for malignant neoplasm of colon (procedure) [code = 112829954] [facility] Future Scheduled Test 1972 00:00:00 Screening for malignant neoplasm of colon (procedure) [code = 883108117] [facility] Future Scheduled Test 1972 00:00:00 Sigmoidoscopy [code = Sigmoidoscopy] [facility] Future Scheduled Test 1972 00:00:00 Screening for malignant neoplasm of breast (procedure) [code = 502233544] [facility] Future Scheduled Test 1972 00:00:00 CT Colonography (combo) [code = CT Colonography (combo)] [facility] Future Scheduled Test 1972 00:00:00 Screening for malignant neoplasm of colon (procedure) [code = 926426295] [facility] Future Scheduled Test 1972 00:00:00 Screening for malignant neoplasm of colon (procedure) [code = 557879352] [facility] Future Scheduled Test 1972 00:00:00 Screening for malignant neoplasm of colon (procedure) [code = 446369878] [facility] Future Scheduled Test 1972 00:00:00 Screening for malignant neoplasm of colon (procedure) [code = 736116435] [facility] Future Scheduled Test 1972 00:00:00 Sigmoidoscopy [code = Sigmoidoscopy] [facility] Future Scheduled Test 1972 00:00:00 Screening for malignant neoplasm of breast (procedure) [code = 315693642] [facility] Future Scheduled Test 1972 00:00:00 CT Colonography (combo) [code = CT Colonography (combo)] [facility] Future Scheduled Test 1972 00:00:00 Screening for malignant neoplasm of colon (procedure) [code = 493950715] [facility] Future Scheduled Test 1972 00:00:00 Screening for malignant neoplasm of colon (procedure) [code = 500952657] [facility] Future Scheduled Test 1972 00:00:00 Screening for malignant neoplasm of colon (procedure) [code = 676875358] [facility] Future Scheduled Test 1972 00:00:00 Screening for malignant neoplasm of colon (procedure) [code = 415869813] [facility] Future Scheduled Test 1972 00:00:00 Sigmoidoscopy [code = Sigmoidoscopy] [facility] Future Scheduled Test 1972 00:00:00 Screening for malignant neoplasm of breast (procedure) [code = 626412288] [facility] Future Scheduled Test 1972 00:00:00 CT Colonography (combo) [code = CT Colonography (combo)] [facility] Future Scheduled Test 1972 00:00:00 Screening for malignant neoplasm of breast (procedure) [code = 901053720] [facility] Future Scheduled Test 1972 00:00:00 CT Colonography (combo) [code = CT Colonography (combo)] [facility] Future Scheduled Test 1972 00:00:00 Screening for malignant neoplasm of colon (procedure) [code = 683051803] [facility] Future Scheduled Test 1972 00:00:00 Screening for malignant neoplasm of colon (procedure) [code = 021698049] [facility] Future Scheduled Test 1972 00:00:00 Screening for malignant neoplasm of colon (procedure) [code = 267520515] [facility] Future Scheduled Test 1972 00:00:00 Screening for malignant neoplasm of colon (procedure) [code = 905582605] [facility] Future Scheduled Test 1972 00:00:00 Sigmoidoscopy [code = Sigmoidoscopy] [facility] Future Scheduled Test 1972 00:00:00 Screening for malignant neoplasm of colon (procedure) [code = 313717204] [facility] Future Scheduled Test 1972 00:00:00 Screening for malignant neoplasm of colon (procedure) [code = 660615341] [facility] Future Scheduled Test 1972 00:00:00 Screening for malignant neoplasm of colon (procedure) [code = 978084711] [facility] Future Scheduled Test 1972 00:00:00 Screening for malignant neoplasm of colon (procedure) [code = 867174040] [facility] Future Scheduled Test 1972 00:00:00 Sigmoidoscopy [code = Sigmoidoscopy] [facility] [facility] 1972 00:00:00 Screening for malignant neoplasm of breast (procedure) [code = [id number]] [facility] Scheduled Test 1972 00:00:00 CT Colonography (combo) [code = CT Colonography (combo)] [facility] Scheduled Test 1972 00:00:00 Screening for malignant neoplasm of colon (procedure) [code = 565942548] [facility] Future Scheduled Test 1972 00:00:00 Screening for malignant neoplasm of colon (procedure) [code = 369346468] [facility] Future Scheduled Test 1972 00:00:00 Screening for malignant neoplasm of colon (procedure) [code = 550479240] [facility] Scheduled Test 1972 00:00:00 Screening for malignant neoplasm of colon (procedure) [code = 447969254] [facility] Scheduled Test 1972 00:00:00 Sigmoidoscopy [code = Sigmoidoscopy] [facility] Future Scheduled Test 1972 00:00:00 Screening for malignant neoplasm of breast (procedure) [code = 595400073] [facility] Future Scheduled Test 1972 00:00:00 CT Colonography (combo) [code = CT Colonography (combo)] [facility] Future Scheduled Test 1972 00:00:00 Screening for malignant neoplasm of colon (procedure) [code = 244513859] [facility] Future Scheduled Test 1972 00:00:00 Screening for malignant neoplasm of colon (procedure) [code = 400121266] [facility] Future Scheduled Test 1972 00:00:00 Screening for malignant neoplasm of colon (procedure) [code = 646084981] [facility] Future Scheduled Test 1972 00:00:00 Screening for malignant neoplasm of colon (procedure) [code = 905098161] [facility] Future Scheduled Test 1972 00:00:00 Sigmoidoscopy [code = Sigmoidoscopy] [facility] Future Scheduled Test 1972 00:00:00 Screening for malignant neoplasm of breast (procedure) [code = 345334204] [facility] Future Scheduled Test 1972 00:00:00 CT Colonography (combo) [code = CT Colonography (combo)] [facility] Scheduled Test 1972 00:00:00 Screening for malignant neoplasm of colon (procedure) [code = 931838579] [facility] Future Scheduled Test 1972 00:00:00 Screening for malignant neoplasm of colon (procedure) [code = 528851146] [facility] Future Scheduled Test 1972 00:00:00 Screening for malignant neoplasm of colon (procedure) [code = 935323699] [facility] Future Scheduled Test 1972 00:00:00 Screening for malignant neoplasm of colon (procedure) [code = 513946267] [facility] Future Scheduled Test 1972 00:00:00 Sigmoidoscopy [code = Sigmoidoscopy] [facility] Future Scheduled Test 1972 00:00:00 Screening for malignant neoplasm of breast (procedure) [code = 262553150] [facility] Future Scheduled Test 1972 00:00:00 CT Colonography (combo) [code = CT Colonography (combo)] [facility] Scheduled Test 1972 00:00:00 Screening for malignant neoplasm of colon (procedure) [code = 977988123] [facility] Future Scheduled Test 1972 00:00:00 Screening for malignant neoplasm of colon (procedure) [code = 822690361] [facility] Future Scheduled Test 1972 00:00:00 Screening for malignant neoplasm of colon (procedure) [code = 239262041] [facility] Future Scheduled Test 1972 00:00:00 Screening for malignant neoplasm of colon (procedure) [code = 667018467] [facility] Future Scheduled Test 1972 00:00:00 Sigmoidoscopy [code = Sigmoidoscopy] [facility] Future Scheduled Test 1972 00:00:00 Screening for malignant neoplasm of breast (procedure) [code = 403117436] [facility] Future Scheduled Test 1972 00:00:00 CT Colonography (combo) [code = CT Colonography (combo)] [facility] Future Scheduled Test 1972 00:00:00 Screening for malignant neoplasm of colon (procedure) [code = 861177174] [facility] Future Scheduled Test 1972 00:00:00 Screening for malignant neoplasm of colon (procedure) [code = 102822117] [facility] Future Scheduled Test 1972 00:00:00 Screening for malignant neoplasm of colon (procedure) [code = 346038874] [facility] Future Scheduled Test 1972 00:00:00 Screening for malignant neoplasm of colon (procedure) [code = 179861794] [facility] Future Scheduled Test 1972 00:00:00 Sigmoidoscopy [code = Sigmoidoscopy] [facility] Future Scheduled Test 1972 00:00:00 Screening for malignant neoplasm of breast (procedure) [code = 316049005] [facility] Future Scheduled Test 1972 00:00:00 CT Colonography (combo) [code = CT Colonography (combo)] [facility] Future Scheduled Test 1972 00:00:00 Screening for malignant neoplasm of colon (procedure) [code = 982241376] [facility] Future Scheduled Test 1972 00:00:00 Screening for malignant neoplasm of colon (procedure) [code = 277738015] [facility] Future Scheduled Test 1972 00:00:00 Screening for malignant neoplasm of colon (procedure) [code = 401304183] [facility] Future Scheduled Test 1972 00:00:00 Screening for malignant neoplasm of colon (procedure) [code = 368505773] [facility] Future Scheduled Test 1972 00:00:00 Sigmoidoscopy [code = Sigmoidoscopy] [facility] Future Scheduled Test 1972 00:00:00 Screening for malignant neoplasm of breast (procedure) [code = 171829182] [facility] Future Scheduled Test 1972 00:00:00 CT Colonography (combo) [code = CT Colonography (combo)] [facility] Future Scheduled Test 1972 00:00:00 Screening for malignant neoplasm of colon (procedure) [code = 071140403] [facility] Future Scheduled Test 1972 00:00:00 Screening for malignant neoplasm of colon (procedure) [code = 056873442] [facility] Future Scheduled Test 1972 00:00:00 Screening for malignant neoplasm of colon (procedure) [code = 480343327] [facility] Future Scheduled Test 1972 00:00:00 Screening for malignant neoplasm of colon (procedure) [code = 667043490] [facility] Future Scheduled Test 1972 00:00:00 Screening for malignant neoplasm of breast (procedure) [code = 592564816] [facility] Future Scheduled Test 1972 00:00:00 CT Colonography (combo) [code = CT Colonography (combo)] [facility] Scheduled Test 1972 00:00:00 Sigmoidoscopy [code = Sigmoidoscopy] [facility] Future Scheduled Test 1972 00:00:00 Screening for malignant neoplasm of colon (procedure) [code = 597733040] [facility] Future Scheduled Test 1972 00:00:00 Screening for malignant neoplasm of colon (procedure) [code = 732529275] [facility] Future Scheduled Test 1972 00:00:00 Screening for malignant neoplasm of colon (procedure) [code = 293096483] [facility] Future Scheduled Test 1972 00:00:00 Screening for malignant neoplasm of colon (procedure) [code = 033236967] [facility] Future Scheduled Test 1972 00:00:00 Sigmoidoscopy [code = Sigmoidoscopy] [facility] Future Scheduled Test 1972 00:00:00 Screening for malignant neoplasm of breast (procedure) [code = 664362188] [facility] Future Scheduled Test 1972 00:00:00 CT Colonography (combo) [code = CT Colonography (combo)] [facility] Future Scheduled Test 1972 00:00:00 Screening for malignant neoplasm of colon (procedure) [code = 857217257] [facility] Future Scheduled Test 1972 00:00:00 Screening for malignant neoplasm of colon (procedure) [code = 187396574] [facility] Future Scheduled Test 1972 00:00:00 Screening for malignant neoplasm of colon (procedure) [code = 283015436] [facility] Future Scheduled Test 1972 00:00:00 Screening for malignant neoplasm of colon (procedure) [code = 909348808] [facility] Future Scheduled Test 1972 00:00:00 Sigmoidoscopy [code = Sigmoidoscopy] [facility] Future Scheduled Test 1972 00:00:00 Screening for malignant neoplasm of breast (procedure) [code = 525065864] [facility] Future Scheduled Test 1972 00:00:00 CT Colonography (combo) [code = CT Colonography (combo)] [facility] Future Scheduled Test 1972 00:00:00 Screening for malignant neoplasm of colon (procedure) [code = 652767695] [facility] Future Scheduled Test 1972 00:00:00 Screening for malignant neoplasm of colon (procedure) [code = 030061570] [facility] Future Scheduled Test 1972 00:00:00 Screening for malignant neoplasm of colon (procedure) [code = 035832640] [facility] Scheduled Test 1972 00:00:00 Screening for malignant neoplasm of colon (procedure) [code = 929197406] [facility] Scheduled Test 1972 00:00:00 Sigmoidoscopy [code = Sigmoidoscopy] [facility] Scheduled Test 1972 00:00:00 Screening for malignant neoplasm of breast (procedure) [code = 374144583] [facility] Scheduled Test 1972 00:00:00 CT Colonography (combo) [code = CT Colonography (combo)] [facility] Scheduled Test 1972 00:00:00 Screening for malignant neoplasm of colon (procedure) [code = 252070321] [facility] Future Scheduled Test 1972 00:00:00 Screening for malignant neoplasm of colon (procedure) [code = 298343090] [facility] Future Scheduled Test 1972 00:00:00 Screening for malignant neoplasm of colon (procedure) [code = 462057092] [facility] Future Scheduled Test 1972 00:00:00 Screening for malignant neoplasm of colon (procedure) [code = 616911203] [facility] Future Scheduled Test 1972 00:00:00 Sigmoidoscopy [code = Sigmoidoscopy] [facility] Future Scheduled Test 1972 00:00:00 Screening for malignant neoplasm of breast (procedure) [code = 586254344] [facility] Future Scheduled Test 1972 00:00:00 CT Colonography (combo) [code = CT Colonography (combo)] [facility] Future Scheduled Test 1972 00:00:00 Screening for malignant neoplasm of colon (procedure) [code = 973363064] [facility] Future Scheduled Test 1972 00:00:00 Screening for malignant neoplasm of colon (procedure) [code = 174511780] [facility] Future Scheduled Test 1972 00:00:00 Screening for malignant neoplasm of colon (procedure) [code = 543658883] [facility] Future Scheduled Test 1972 00:00:00 Screening for malignant neoplasm of colon (procedure) [code = 812342930] [facility] Future Scheduled Test 1972 00:00:00 Sigmoidoscopy [code = Sigmoidoscopy] [facility] Future Scheduled Test 1972 00:00:00 Screening for malignant neoplasm of breast (procedure) [code = 721860102] [facility] Future Scheduled Test 1972 00:00:00 CT Colonography (combo) [code = CT Colonography (combo)] [facility] Future Scheduled Test 1972 00:00:00 Screening for malignant neoplasm of colon (procedure) [code = 137426900] [facility] Future Scheduled Test 1972 00:00:00 Screening for malignant neoplasm of colon (procedure) [code = 823395086] [facility] Future Scheduled Test 1972 00:00:00 Screening for malignant neoplasm of colon (procedure) [code = 930026920] [facility] Future Scheduled Test 1972 00:00:00 Screening for malignant neoplasm of colon (procedure) [code = 797325502] [facility] Future Scheduled Test 1972 00:00:00 Sigmoidoscopy [code = Sigmoidoscopy] [facility] Future Scheduled Test 1972 00:00:00 Screening for malignant neoplasm of breast (procedure) [code = 136406082] [facility] Future Scheduled Test 1972 00:00:00 CT Colonography (combo) [code = CT Colonography (combo)] [facility] Future Scheduled Test 1972 00:00:00 Screening for malignant neoplasm of colon (procedure) [code = 780252576] [facility] Future Scheduled Test 1972 00:00:00 Screening for malignant neoplasm of colon (procedure) [code = 191207862] [facility] Future Scheduled Test 1972 00:00:00 Screening for malignant neoplasm of breast (procedure) [code = 323544806] [facility] Future Scheduled Test 1972 00:00:00 Screening for malignant neoplasm of colon (procedure) [code = 215943030] [facility] Future Scheduled Test 1972 00:00:00 CT Colonography (combo) [code = CT Colonography (combo)] [facility] Future Scheduled Test 1972 00:00:00 Screening for malignant neoplasm of colon (procedure) [code = 697327751] [facility] Future Scheduled Test 1972 00:00:00 Screening for malignant neoplasm of colon (procedure) [code = 603280451] [facility] Future Scheduled Test 1972 00:00:00 Screening for malignant neoplasm of colon (procedure) [code = 454803312] [facility] Future Scheduled Test 1972 00:00:00 Screening for malignant neoplasm of colon (procedure) [code = 909076407] [facility] Future Scheduled Test 1972 00:00:00 Sigmoidoscopy [code = Sigmoidoscopy] [facility] Future Scheduled Test 1972 00:00:00 Screening for malignant neoplasm of colon (procedure) [code = 635593318] [facility] Future Scheduled Test 1972 00:00:00 Sigmoidoscopy [code = Sigmoidoscopy] [facility] Future Scheduled Test 1972 00:00:00 Screening for malignant neoplasm of breast (procedure) [code = 400837366] [facility] Future Scheduled Test 1972 00:00:00 CT Colonography (combo) [code = CT Colonography (combo)] [facility] Future Scheduled Test 1972 00:00:00 Screening for malignant neoplasm of colon (procedure) [code = 145190805] [facility] Future Scheduled Test 1972 00:00:00 Screening for malignant neoplasm of colon (procedure) [code = 609700037] [facility] Future Scheduled Test 1972 00:00:00 Screening for malignant neoplasm of colon (procedure) [code = 511681875] [facility] Future Scheduled Test 1972 00:00:00 Screening for malignant neoplasm of colon (procedure) [code = 238634925] [facility] Future Scheduled Test 1972 00:00:00 Sigmoidoscopy [code = Sigmoidoscopy] [facility] Future Scheduled Test 1972 00:00:00 Screening for malignant neoplasm of breast (procedure) [code = 048441941] [facility] Future Scheduled Test 1972 00:00:00 CT Colonography (combo) [code = CT Colonography (combo)] [facility] Future Scheduled Test 1972 00:00:00 Screening for malignant neoplasm of colon (procedure) [code = 704337961] [facility] Future Scheduled Test 1972 00:00:00 Screening for malignant neoplasm of colon (procedure) [code = 990527570] [facility] Future Scheduled Test 1972 00:00:00 Screening for malignant neoplasm of colon (procedure) [code = 038271997] [facility] Future Scheduled Test 1972 00:00:00 Screening for malignant neoplasm of colon (procedure) [code = 978433238] [facility] Future Scheduled Test 1972 00:00:00 Sigmoidoscopy [code = Sigmoidoscopy] [facility] Future Scheduled Test 1972 00:00:00 Screening for malignant neoplasm of breast (procedure) [code = 178127415] [facility] Future Scheduled Test 1972 00:00:00 CT Colonography (combo) [code = CT Colonography (combo)] [facility] Future Scheduled Test 1972 00:00:00 Screening for malignant neoplasm of colon (procedure) [code = 284558028] [facility] Future Scheduled Test 1972 00:00:00 Screening for malignant neoplasm of colon (procedure) [code = 306556952] [facility] Future Scheduled Test 1972 00:00:00 Screening for malignant neoplasm of colon (procedure) [code = 169576475] [facility] Future Scheduled Test 1972 00:00:00 Screening for malignant neoplasm of colon (procedure) [code = 084465249] [facility] Future Scheduled Test 1972 00:00:00 Sigmoidoscopy [code = Sigmoidoscopy] [facility] Future Scheduled Test 1972 00:00:00 Screening for malignant neoplasm of breast (procedure) [code = 904450483] [facility] Future Scheduled Test 1972 00:00:00 CT Colonography (combo) [code = CT Colonography (combo)] [facility] Future Scheduled Test 1972 00:00:00 Screening for malignant neoplasm of colon (procedure) [code = 842531102] [facility] Future Scheduled Test 1972 00:00:00 Screening for malignant neoplasm of colon (procedure) [code = 954408567] [facility] Future Scheduled Test 1972 00:00:00 Screening for malignant neoplasm of colon (procedure) [code = 660574039] [facility] Future Scheduled Test 1972 00:00:00 Screening for malignant neoplasm of colon (procedure) [code = 817191008] [facility] Future Scheduled Test 1972 00:00:00 Sigmoidoscopy [code = Sigmoidoscopy] [facility] Future Scheduled Test 1972 00:00:00 Screening for malignant neoplasm of breast (procedure) [code = 975114481] [facility] Future Scheduled Test 1972 00:00:00 CT Colonography (combo) [code = CT Colonography (combo)] [facility] Future Scheduled Test 1972 00:00:00 Screening for malignant neoplasm of colon (procedure) [code = 302627431] [facility] Future Scheduled Test 1972 00:00:00 Screening for malignant neoplasm of colon (procedure) [code = 431475707] [facility] Future Scheduled Test 1972 00:00:00 Screening for malignant neoplasm of colon (procedure) [code = 906254035] [facility] Future Scheduled Test 1972 00:00:00 Screening for malignant neoplasm of colon (procedure) [code = 823897190] [facility] Future Scheduled Test 1972 00:00:00 Sigmoidoscopy [code = Sigmoidoscopy] [facility] Future Scheduled Test 1972 00:00:00 Screening for malignant neoplasm of breast (procedure) [code = 345516067] [facility] Future Scheduled Test 1972 00:00:00 CT Colonography (combo) [code = CT Colonography (combo)] [facility] Future Scheduled Test 1972 00:00:00 Screening for malignant neoplasm of colon (procedure) [code = 703634035] [facility] Future Scheduled Test 1972 00:00:00 Screening for malignant neoplasm of colon (procedure) [code = 461240062] [facility] Future Scheduled Test 1972 00:00:00 Screening for malignant neoplasm of colon (procedure) [code = 785602187] [facility] Future Scheduled Test 1972 00:00:00 Screening for malignant neoplasm of colon (procedure) [code = 849402878] [facility] Future Scheduled Test 1972 00:00:00 Sigmoidoscopy [code = Sigmoidoscopy] [facility] Future Scheduled Test 1972 00:00:00 Screening for malignant neoplasm of breast (procedure) [code = 377280657] [facility] Future Scheduled Test 1972 00:00:00 CT Colonography (combo) [code = CT Colonography (combo)] [facility] Future Scheduled Test 1972 00:00:00 Screening for malignant neoplasm of colon (procedure) [code = 784758525] [facility] Future Scheduled Test 1972 00:00:00 Screening for malignant neoplasm of colon (procedure) [code = 534199133] [facility] Future Scheduled Test 1972 00:00:00 Screening for malignant neoplasm of colon (procedure) [code = 663682608] [facility] Future Scheduled Test 1972 00:00:00 Screening for malignant neoplasm of colon (procedure) [code = 000320065] [facility] Future Scheduled Test 1972 00:00:00 Sigmoidoscopy [code = Sigmoidoscopy] [facility] Future Scheduled Test 1972 00:00:00 Screening for malignant neoplasm of breast (procedure) [code = 259447002] [facility] Future Scheduled Test 1972 00:00:00 CT Colonography (combo) [code = CT Colonography (combo)] [facility] Future Scheduled Test 1972 00:00:00 Screening for malignant neoplasm of colon (procedure) [code = 853016887] [facility] Future Scheduled Test 1972 00:00:00 Screening for malignant neoplasm of colon (procedure) [code = 976399684] [facility] Future Scheduled Test 1972 00:00:00 Screening for malignant neoplasm of colon (procedure) [code = 963144945] [facility] Future Scheduled Test 1972 00:00:00 Screening for malignant neoplasm of colon (procedure) [code = 316798206] [facility] Future Scheduled Test 1972 00:00:00 Sigmoidoscopy [code = Sigmoidoscopy] [facility] Future Scheduled Test 1972 00:00:00 Screening for malignant neoplasm of breast (procedure) [code = 134188336] [facility] Future Scheduled Test 1972 00:00:00 CT Colonography (combo) [code = CT Colonography (combo)] [facility] Future Scheduled Test 1972 00:00:00 Screening for malignant neoplasm of colon (procedure) [code = 284773586] [facility] Future Scheduled Test 1972 00:00:00 Screening for malignant neoplasm of colon (procedure) [code = 797283123] [facility] Future Scheduled Test 1972 00:00:00 Screening for malignant neoplasm of colon (procedure) [code = 049681727] [facility] Future Scheduled Test 1972 00:00:00 Screening for malignant neoplasm of colon (procedure) [code = 358340324] [facility] Future Scheduled Test 1972 00:00:00 Sigmoidoscopy [code = Sigmoidoscopy] [facility] Future Scheduled Test 1972 00:00:00 Screening for malignant neoplasm of breast (procedure) [code = 195969509] [facility] Future Scheduled Test 1972 00:00:00 CT Colonography (combo) [code = CT Colonography (combo)] [facility] Future Scheduled Test 1972 00:00:00 Screening for malignant neoplasm of colon (procedure) [code = 485432367] [facility] Future Scheduled Test 1972 00:00:00 Screening for malignant neoplasm of colon (procedure) [code = 563605541] [facility] Future Scheduled Test 1972 00:00:00 Screening for malignant neoplasm of colon (procedure) [code = 444293302] [facility] Future Scheduled Test 1972 00:00:00 Screening for malignant neoplasm of colon (procedure) [code = 317469549] [facility] Future Scheduled Test 1972 00:00:00 Sigmoidoscopy [code = Sigmoidoscopy] [facility] Future Scheduled Test 1972 00:00:00 Screening for malignant neoplasm of breast (procedure) [code = 146824648] [facility] Future Scheduled Test 1972 00:00:00 CT Colonography (combo) [code = CT Colonography (combo)] [facility] Future Scheduled Test 1972 00:00:00 Screening for malignant neoplasm of colon (procedure) [code = 994880940] [facility] Future Scheduled Test 1972 00:00:00 Screening for malignant neoplasm of breast (procedure) [code = 929070027] [facility] Future Scheduled Test 1972 00:00:00 CT Colonography (combo) [code = CT Colonography (combo)] [facility] Future Scheduled Test 1972 00:00:00 Screening for malignant neoplasm of colon (procedure) [code = 887790151] [facility] Future Scheduled Test 1972 00:00:00 Screening for malignant neoplasm of colon (procedure) [code = 307861554] [facility] Future Scheduled Test 1972 00:00:00 Screening for malignant neoplasm of colon (procedure) [code = 720157135] [facility] Future Scheduled Test 1972 00:00:00 Screening for malignant neoplasm of colon (procedure) [code = 003413254] [facility] Future Scheduled Test 1972 00:00:00 Sigmoidoscopy [code = Sigmoidoscopy] [facility] [facility] Future Scheduled Test 1972 00:00:00 Screening for malignant neoplasm of colon (procedure) [code = 440815075] [facility] Future Scheduled Test 1972 00:00:00 Screening for malignant neoplasm of colon (procedure) [code = 485973187] [facility] Future Scheduled Test 1972 00:00:00 Screening for malignant neoplasm of colon (procedure) [code = 339721226] [facility] Future Scheduled Test 1972 00:00:00 Sigmoidoscopy [code = Sigmoidoscopy] [facility] Scheduled Test 1972 00:00:00 Screening for malignant neoplasm of breast (procedure) [code = 203677353] [facility] Scheduled Test 1972 00:00:00 CT Colonography (combo) [code = CT Colonography (combo)] [facility] Future Scheduled Test 1972 00:00:00 Screening for malignant neoplasm of colon (procedure) [code = 121533484] [facility] Future Scheduled Test 1972 00:00:00 Screening for malignant neoplasm of colon (procedure) [code = 808514779] [facility] Future Scheduled Test 1972 00:00:00 Screening for malignant neoplasm of colon (procedure) [code = 813995531] [facility] Future Scheduled Test 1972 00:00:00 Screening for malignant neoplasm of colon (procedure) [code = 774424728] [facility] Future Scheduled Test 1972 00:00:00 Sigmoidoscopy [code = Sigmoidoscopy] [facility] Future Scheduled Test 1972 00:00:00 Screening for malignant neoplasm of breast (procedure) [code = 803486109] [facility] Future Scheduled Test 1972 00:00:00 CT Colonography (combo) [code = CT Colonography (combo)] [facility] Scheduled Test 1972 00:00:00 Screening for malignant neoplasm of colon (procedure) [code = 252564333] [facility] Future Scheduled Test 1972 00:00:00 Screening for malignant neoplasm of colon (procedure) [code = 047061397] [facility] Future Scheduled Test 1972 00:00:00 Screening for malignant neoplasm of colon (procedure) [code = 844799079] [facility] Scheduled Test 1972 00:00:00 Screening for malignant neoplasm of colon (procedure) [code = 348749566] [facility] Future Scheduled Test 1972 00:00:00 Sigmoidoscopy [code = Sigmoidoscopy] [facility] Future Scheduled Test 1972 00:00:00 Screening for malignant neoplasm of breast (procedure) [code = 066307346] [facility] Future Scheduled Test 1972 00:00:00 CT Colonography (combo) [code = CT Colonography (combo)] [facility] Scheduled Test 1972 00:00:00 Screening for malignant neoplasm of colon (procedure) [code = 697612082] [facility] Scheduled Test 1972 00:00:00 Screening for malignant neoplasm of colon (procedure) [code = 195590226] [facility] Scheduled Test 1972 00:00:00 Screening for malignant neoplasm of colon (procedure) [code = 645135597] [facility] Future Scheduled Test 1972 00:00:00 Screening for malignant neoplasm of colon (procedure) [code = 454398816] [facility] Future Scheduled Test 1972 00:00:00 Sigmoidoscopy [code = Sigmoidoscopy] [facility] Future Scheduled Test 1972 00:00:00 Screening for malignant neoplasm of breast (procedure) [code = 532020245] [facility] Future Scheduled Test 1972 00:00:00 CT Colonography (combo) [code = CT Colonography (combo)] [facility] Scheduled Test 1972 00:00:00 Screening for malignant neoplasm of colon (procedure) [code = 135196743] [facility] Future Scheduled Test 1972 00:00:00 Screening for malignant neoplasm of colon (procedure) [code = 698629673] [facility] Scheduled Test 1972 00:00:00 Screening for malignant neoplasm of colon (procedure) [code = 055510415] [facility] Scheduled Test 1972 00:00:00 Screening for malignant neoplasm of colon (procedure) [code = 130205128] [facility] Scheduled Test 1972 00:00:00 Sigmoidoscopy [code = Sigmoidoscopy] [facility] Scheduled Test 1972 00:00:00 Screening for malignant neoplasm of breast (procedure) [code = 968466569] [facility] Future Scheduled Test 1972 00:00:00 CT Colonography (combo) [code = CT Colonography (combo)] [facility] Future Scheduled Test 1972 00:00:00 Screening for malignant neoplasm of colon (procedure) [code = 513372658] [facility] Scheduled Test 1972 00:00:00 Screening for malignant neoplasm of colon (procedure) [code = 046213797] [facility] Scheduled Test 1972 00:00:00 Screening for malignant neoplasm of colon (procedure) [code = 890421823] [facility] Scheduled Test 1972 00:00:00 Screening for malignant neoplasm of colon (procedure) [code = 244482559] [facility] Future Scheduled Test 1972 00:00:00 Screening for malignant neoplasm of breast (procedure) [code = 203296999] [facility] Future Scheduled Test 1972 00:00:00 Sigmoidoscopy [code = Sigmoidoscopy] [facility] Future Scheduled Test 1972 00:00:00 CT Colonography (combo) [code = CT Colonography (combo)] [facility] Future Scheduled Test 1972 00:00:00 Screening for malignant neoplasm of colon (procedure) [code = 508984641] [facility] Scheduled Test 1972 00:00:00 Screening for malignant neoplasm of breast (procedure) [code = 817125897] [facility] Scheduled Test 1972 00:00:00 CT Colonography (combo) [code = CT Colonography (combo)] [facility] Scheduled Test 1972 00:00:00 Screening for malignant neoplasm of colon (procedure) [code = 238151246] [facility] Scheduled Test 1972 00:00:00 Screening for malignant neoplasm of colon (procedure) [code = 290273750] [facility] Scheduled Test 1972 00:00:00 Screening for malignant neoplasm of colon (procedure) [code = 114264113] [facility] Scheduled Test 1972 00:00:00 Screening for malignant neoplasm of colon (procedure) [code = 302740556] [facility] Scheduled Test 1972 00:00:00 Screening for malignant neoplasm of colon (procedure) [code = 944390718] [facility] Scheduled Test 1972 00:00:00 Sigmoidoscopy [code = Sigmoidoscopy] [facility] Scheduled Test 1972 00:00:00 Screening for malignant neoplasm of colon (procedure) [code = 417444777] [facility] Scheduled Test 1972 00:00:00 Screening for malignant neoplasm of colon (procedure) [code = 420534805] [facility] Scheduled Test 1972 00:00:00 Screening for malignant neoplasm of breast (procedure) [code = 322276335] [facility] Scheduled Test 1972 00:00:00 CT Colonography (combo) [code = CT Colonography (combo)] [facility] Future Scheduled Test 1972 00:00:00 Screening for malignant neoplasm of colon (procedure) [code = 384791194] [facility] Scheduled Test 1972 00:00:00 Screening for malignant neoplasm of colon (procedure) [code = 945644225] [facility] Scheduled Test 1972 00:00:00 Sigmoidoscopy [code = Sigmoidoscopy] [facility] Scheduled Test 1972 00:00:00 Screening for malignant neoplasm of colon (procedure) [code = 169086748] [facility] Scheduled Test 1972 00:00:00 Screening for malignant neoplasm of colon (procedure) [code = 431950359] [facility] Scheduled Test 1972 00:00:00 Sigmoidoscopy [code = Sigmoidoscopy] [facility] Scheduled Test 1972 00:00:00 Screening for malignant neoplasm of breast (procedure) [code = 901862840] [facility] Scheduled Test 1972 00:00:00 CT Colonography (combo) [code = CT Colonography (combo)] [facility] Scheduled Test 1972 00:00:00 Screening for malignant neoplasm of colon (procedure) [code = 718127511] [facility] Scheduled Test 1972 00:00:00 Screening for malignant neoplasm of colon (procedure) [code = 403500755] [facility] Scheduled Test 1972 00:00:00 Screening for malignant neoplasm of colon (procedure) [code = 984466614] [facility] Scheduled Test 1972 00:00:00 Screening for malignant neoplasm of colon (procedure) [code = 701121231] [facility] Scheduled Test 1972 00:00:00 Sigmoidoscopy [code = Sigmoidoscopy] [facility] Scheduled Test 1972 00:00:00 Screening for malignant neoplasm of breast (procedure) [code = 674520727] [facility] Scheduled Test 1972 00:00:00 CT Colonography (combo) [code = CT Colonography (combo)] [facility] Scheduled Test 1972 00:00:00 Screening for malignant neoplasm of colon (procedure) [code = 133596301] [facility] Scheduled Test 1972 00:00:00 Screening for malignant neoplasm of colon (procedure) [code = 844595314] [facility] Future Scheduled Test 1972 00:00:00 Screening for malignant neoplasm of colon (procedure) [code = 630786925] [facility] Scheduled Test 1972 00:00:00 Screening for malignant neoplasm of colon (procedure) [code = 332854878] [facility] Scheduled Test 1972 00:00:00 Sigmoidoscopy [code = Sigmoidoscopy] [facility] Scheduled Test 1972 00:00:00 Screening for malignant neoplasm of breast (procedure) [code = 263007398] [facility] Scheduled Test 1972 00:00:00 CT Colonography (combo) [code = CT Colonography (combo)] [facility] Scheduled Test 1972 00:00:00 Screening for malignant neoplasm of colon (procedure) [code = 215362883] [facility] Scheduled Test 1972 00:00:00 Screening for malignant neoplasm of colon (procedure) [code = 286048873] [facility] Scheduled Test 1972 00:00:00 Screening for malignant neoplasm of colon (procedure) [code = 074829125] [facility] Scheduled Test 1972 00:00:00 Screening for malignant neoplasm of colon (procedure) [code = 351357545] [facility] Scheduled Test 1972 00:00:00 Sigmoidoscopy [code = Sigmoidoscopy] [facility] Scheduled Test 1972 00:00:00 Screening for malignant neoplasm of breast (procedure) [code = 244573346] [facility] Scheduled Test 1972 00:00:00 CT Colonography (combo) [code = CT Colonography (combo)] [facility] Scheduled Test 1972 00:00:00 Screening for malignant neoplasm of colon (procedure) [code = 285460915] [facility] Scheduled Test 1972 00:00:00 Screening for malignant neoplasm of colon (procedure) [code = 188277493] [facility] Scheduled Test 1972 00:00:00 Screening for malignant neoplasm of colon (procedure) [code = 265072193] [facility] Scheduled Test 1972 00:00:00 Screening for malignant neoplasm of colon (procedure) [code = 443320723] [facility] Scheduled Test 1972 00:00:00 Sigmoidoscopy [code = Sigmoidoscopy] [facility] Future Scheduled Test 1972 00:00:00 Screening for malignant neoplasm of breast (procedure) [code = 881281286] [facility] Future Scheduled Test 1972 00:00:00 CT Colonography (combo) [code = CT Colonography (combo)] [facility] Scheduled Test 1972 00:00:00 Screening for malignant neoplasm of colon (procedure) [code = 485403362] [facility] Scheduled Test 1972 00:00:00 Screening for malignant neoplasm of colon (procedure) [code = 125876037] [facility] Scheduled Test 1972 00:00:00 Screening for malignant neoplasm of colon (procedure) [code = 222732070] [facility] Scheduled Test 1972 00:00:00 Screening for malignant neoplasm of colon (procedure) [code = 199453479] [facility] Scheduled Test 1972 00:00:00 Sigmoidoscopy [code = Sigmoidoscopy] [facility] Scheduled Test 1972 00:00:00 Screening for malignant neoplasm of breast (procedure) [code = 520392398] [facility] Scheduled Test 1972 00:00:00 CT Colonography (combo) [code = CT Colonography (combo)] [facility] Scheduled Test 1972 00:00:00 Screening for malignant neoplasm of colon (procedure) [code = 573167468] [facility] Scheduled Test 1972 00:00:00 Screening for malignant neoplasm of colon (procedure) [code = 496108641] [facility] Scheduled Test 1972 00:00:00 Screening for malignant neoplasm of colon (procedure) [code = 058799385] [facility] Scheduled Test 1972 00:00:00 Screening for malignant neoplasm of colon (procedure) [code = 469558423] [facility] Scheduled Test 1972 00:00:00 Sigmoidoscopy [code = Sigmoidoscopy] [facility] Scheduled Test 1972 00:00:00 Screening for malignant neoplasm of breast (procedure) [code = 550716385] [facility] Future Scheduled Test 1972 00:00:00 CT Colonography (combo) [code = CT Colonography (combo)] [facility] Future Scheduled Test 1972 00:00:00 Screening for malignant neoplasm of colon (procedure) [code = 014636949] [facility] Future Scheduled Test 1972 00:00:00 Screening for malignant neoplasm of colon (procedure) [code = 563843026] [facility] Scheduled Test 1972 00:00:00 Screening for malignant neoplasm of colon (procedure) [code = 149794040] [facility] Scheduled Test 1972 00:00:00 Screening for malignant neoplasm of colon (procedure) [code = 617457631] [facility] Scheduled Test 1972 00:00:00 Sigmoidoscopy [code = Sigmoidoscopy] [facility] Scheduled Test 1972 00:00:00 Screening for malignant neoplasm of breast (procedure) [code = 981744330] [facility] Scheduled Test 1972 00:00:00 CT Colonography (combo) [code = CT Colonography (combo)] [facility] Scheduled Test 1972 00:00:00 Screening for malignant neoplasm of colon (procedure) [code = 870889567] [facility] Scheduled Test 1972 00:00:00 Screening for malignant neoplasm of colon (procedure) [code = 862589289] [facility] Scheduled Test 1972 00:00:00 Screening for malignant neoplasm of colon (procedure) [code = 013014049] [facility] Scheduled Test 1972 00:00:00 Screening for malignant neoplasm of colon (procedure) [code = 988701095] [facility] Future Scheduled Test 1972 00:00:00 Sigmoidoscopy [code = Sigmoidoscopy] [facility] Future Scheduled Test 1972 00:00:00 Screening for malignant neoplasm of breast (procedure) [code = 175498956] [facility] Future Scheduled Test 1972 00:00:00 CT Colonography (combo) [code = CT Colonography (combo)] [facility] Scheduled Test 1972 00:00:00 Screening for malignant neoplasm of colon (procedure) [code = 125367580] [facility] Scheduled Test 1972 00:00:00 Screening for malignant neoplasm of colon (procedure) [code = 137453276] [facility] Future Scheduled Test 1972 00:00:00 Screening for malignant neoplasm of colon (procedure) [code = 460390486] [facility] Future Scheduled Test 1972 00:00:00 Screening for malignant neoplasm of colon (procedure) [code = 236349143] [facility] Future Scheduled Test 1972 00:00:00 Sigmoidoscopy [code = Sigmoidoscopy] [facility] Future Scheduled Test 1972 00:00:00 Screening for malignant neoplasm of breast (procedure) [code = 223239887] [facility] Future Scheduled Test 1972 00:00:00 CT Colonography (combo) [code = CT Colonography (combo)] [facility] Scheduled Test 1972 00:00:00 Screening for malignant neoplasm of colon (procedure) [code = 341435557] [facility] Future Scheduled Test 1972 00:00:00 Screening for malignant neoplasm of colon (procedure) [code = 186889160] [facility] Future Scheduled Test 1972 00:00:00 Screening for malignant neoplasm of colon (procedure) [code = 196587204] [facility] Scheduled Test 1972 00:00:00 Screening for malignant neoplasm of colon (procedure) [code = 435869516] [facility] Scheduled Test 1972 00:00:00 Sigmoidoscopy [code = Sigmoidoscopy] [facility] Scheduled Test 1972 00:00:00 Screening for malignant neoplasm of breast (procedure) [code = 246258123] [facility] Future Scheduled Test 1972 00:00:00 CT Colonography (combo) [code = CT Colonography (combo)] [facility] Future Scheduled Test 1972 00:00:00 Screening for malignant neoplasm of colon (procedure) [code = 156310407] [facility] Scheduled Test 1972 00:00:00 Screening for malignant neoplasm of colon (procedure) [code = 182104504] [facility] Scheduled Test 1972 00:00:00 Screening for malignant neoplasm of colon (procedure) [code = 372434187] [facility] Scheduled Test 1972 00:00:00 Screening for malignant neoplasm of colon (procedure) [code = 539133211] [facility] Future Scheduled Test 1972 00:00:00 Sigmoidoscopy [code = Sigmoidoscopy] [facility] Future Scheduled Test 1972 00:00:00 Screening for malignant neoplasm of breast (procedure) [code = 281125665] [facility] Future Scheduled Test 1972 00:00:00 CT Colonography (combo) [code = CT Colonography (combo)] [facility] Scheduled Test 1972 00:00:00 Screening for malignant neoplasm of colon (procedure) [code = 397709848] [facility] Scheduled Test 1972 00:00:00 Screening for malignant neoplasm of colon (procedure) [code = 993960916] [facility] Scheduled Test 1972 00:00:00 Screening for malignant neoplasm of colon (procedure) [code = 598984252] [facility] Future Scheduled Test 1972 00:00:00 Screening for malignant neoplasm of colon (procedure) [code = 975856380] [facility] Scheduled Test 1972 00:00:00 Sigmoidoscopy [code = Sigmoidoscopy] [facility] Scheduled Test 1972 00:00:00 Screening for malignant neoplasm of breast (procedure) [code = 534078527] [facility] Scheduled Test 1972 00:00:00 CT Colonography (combo) [code = CT Colonography (combo)] [facility] Scheduled Test 1972 00:00:00 Screening for malignant neoplasm of colon (procedure) [code = 910441490] [facility] Scheduled Test 1972 00:00:00 Screening for malignant neoplasm of colon (procedure) [code = 216538007] [facility] Scheduled Test 1972 00:00:00 Screening for malignant neoplasm of colon (procedure) [code = 683873119] [facility] Scheduled Test 1972 00:00:00 Screening for malignant neoplasm of colon (procedure) [code = 549012320] [facility] Scheduled Test 1972 00:00:00 Sigmoidoscopy [code = Sigmoidoscopy] [facility] Future Scheduled Test 1972 00:00:00 Screening for malignant neoplasm of breast (procedure) [code = 057636330] [facility] Future Scheduled Test 1972 00:00:00 CT Colonography (combo) [code = CT Colonography (combo)] [facility] Future Scheduled Test 1972 00:00:00 Screening for malignant neoplasm of colon (procedure) [code = 742842369] [facility] Future Scheduled Test 1972 00:00:00 Screening for malignant neoplasm of colon (procedure) [code = 610468286] [facility] Scheduled Test 1972 00:00:00 Screening for malignant neoplasm of colon (procedure) [code = 807540825] [facility] Scheduled Test 1972 00:00:00 Screening for malignant neoplasm of colon (procedure) [code = 336334739] [facility] Scheduled Test 1972 00:00:00 Sigmoidoscopy [code = Sigmoidoscopy] [facility] Future Scheduled Test 1972 00:00:00 Screening for malignant neoplasm of breast (procedure) [code = 071744724] [facility] Future Scheduled Test 1972 00:00:00 CT Colonography (combo) [code = CT Colonography (combo)] [facility] Scheduled Test 1972 00:00:00 Screening for malignant neoplasm of colon (procedure) [code = 917724665] [facility] Scheduled Test 1972 00:00:00 Screening for malignant neoplasm of colon (procedure) [code = 384117503] [facility] Scheduled Test 1972 00:00:00 Screening for malignant neoplasm of colon (procedure) [code = 655922874] [facility] Scheduled Test 1972 00:00:00 Screening for malignant neoplasm of colon (procedure) [code = 235051634] [facility] Scheduled Test 1972 00:00:00 Sigmoidoscopy [code = Sigmoidoscopy] [facility] Scheduled Test 1972 00:00:00 Screening for malignant neoplasm of breast (procedure) [code = 187797047] [facility] Scheduled Test 1972 00:00:00 CT Colonography (combo) [code = CT Colonography (combo)] [facility] Scheduled Test 1972 00:00:00 Screening for malignant neoplasm of colon (procedure) [code = 941579672] [facility] Scheduled Test 1972 00:00:00 Screening for malignant neoplasm of colon (procedure) [code = 909258146] [facility] Scheduled Test 1972 00:00:00 Screening for malignant neoplasm of colon (procedure) [code = 486824537] [facility] Scheduled Test 1972 00:00:00 Screening for malignant neoplasm of colon (procedure) [code = 336039715] [facility] Future Scheduled Test 1972 00:00:00 Sigmoidoscopy [code = Sigmoidoscopy] [facility] Goal Plan of Care Not e [code = 92834-4] Goal Plan of Care Not e [code = 09450-4] Goal Plan of Care Not e [code = 27890-3] Goal Plan of Care Not e [code = 89303-9] Goal Plan of Care Not e [code = 25606-6] Goal Plan of Care Not e [code = 79064-9] Goal Plan of Care Not e [code = 87546-7] Goal Plan of Care Not e [code = 78617-0] Goal Plan of Care Not e [code = 31291-5] Goal Plan of Care Not e [code = 83413-2] Goal Plan of Care Not e [code = 71880-3] Goal Plan of Care Not e [code = 59172-2] Goal Plan of Care Not e [code = 74255-8] Goal Plan of Care Not e [code = 44548-2] Goal Plan of Care Not e [code = 46697-8] Goal Plan of Care Not e [code = 34595-4] Goal Plan of Care Not e [code = 42017-5] Goal Plan of Care Not e [code = 98513-9] Goal Plan of Care Not e [code = 58969-6] Goal Plan of Care Not e [code = 98920-1] Goal Plan of Care Not e [code = 73244-8] Goal Plan of Care Not e [code = 04672-0] Goal Plan of Care Not e [code = 01198-5] Goal Plan of Care Not e [code = 30179-3] Goal Plan of Care Not e [code = 54017-9] Goal Plan of Care Not e [code = 74225-2] Goal Plan of Care Not e [code = 10784-6] Goal Plan of Care Not e [code = 87093-3] Goal Plan of Care Not e [code = 01400-1] Goal Plan of Care Not e [code = 33410-3] Goal Plan of Care Not e [code = 82481-2] Goal Plan of Care Not e [code = 17075-9] Goal Plan of Care Not e [code = 54226-1] Goal Plan of Care Not e [code = 61803-9] Goal Plan of Care Not e [code = 20650-0] Encounters Start Date/Time End Date/Time Encounter Type Admission Type Attending [facility] Care Department Encounter ID Source 2023-09-07 10:11:03 Inpatient PANKAJ PARRISH [id number] [facility] 2023-09-05 10:08:27 Inpatient [facility] [id number] [facility] 2023-09-05 10:05:12 Inpatient [facility] [id number] SLE 2023-09-04 04:51:30 Inpatient [facility] [id number] SLE 2023-09-04 04:14:55 Inpatient PANKAJ PARRISH [facility] SLE [id number] SLE 2023-09-04 03:08:45 Inpatient PANKAJ PARRISH [facility] SLE [id number] SLE 2023-09-04 02:36:28 Inpatient PANKAJ PARRISH [facility] SLE [id number] SLE 2023-06-16 09:32:36 Inpatient AYDEE DICKENS SLE SLE [id number] [facility] 2023-06-16 09:32:09 Inpatient AYDEE DICKENS SLE SLE [id number] SLE 2023-06-16 09:31:53 [id number] 2023-06-14 07:46:02 Inpatient AYDEE DICKENS SLEH SLE [id number] SLE 2023-06-14 07:39:22 Inpatient AYDEE DICKENS SLEH SLE [id number] [facility] 2023-06-14 06:38:38 [facility] [id number] 2023-06-13 13:44:18 Inpatient MARIANELA MURPHY SLE SLE [id number] SLE 2023-06-13 11:45:24 [facility] [id number] 2023-05-08 11:21:00 Outpatient EL ADAM GARCIA SLEH Surgery [id number] SLE 2023-04-01 14:26:29 Inpatient ER THOMAS LOZOYA SLE SLE [id number] SLE 2023-03-31 09:24:52 Inpatient ER LUIS CARLOS MARIAH [facility] [id number] [facility] 2021-05-20 18:48:04 Emergency [facility] [id number] [facility] 2021-05-20 12:43:40 Emergency [facility] [id number] [facility] 2023-11-05 00:00:00 2024-09-03 02:17:06 Orders Only Doctor Unassigned, [place] Doctor Unassigned, [place] [facility] [place] (EWELINA) 1.2.840.114 350.1.13.10 4.2.7.2.686 [id number] [facility] 2023-11-18 00:00:00 2024-09-03 02:07:30 Orders Only Doctor Unassigned, [place] Doctor Unassigned, [place] [facility] (EWELINA) 1.2.840.114 350.1.13.10 4.2.7.2.686 [id number] [facility] 2024-08-10 06:02:28 2024-08-10 23:59:00 Outpatient [facility] [id number] [facility] 2024-08-10 05:24:00 2024-08-10 15:10:00 Emergency Emergency WENDI MONTAÑO [facility] General Medicine [id number] [facility] 2024-08-10 05:24:00 2024-08-10 15:10:00 Emergency Brooklynn Paige Shabana [facility] 1.2.840.114 350.1.13.70 8.2.7.2.686 [id number] [facility] 2024-08-10 00:00:00 2024-08-10 06:02:27 Orders Only System, Provider Not In [facility] 1.2.840.114 350.1.13.70 8.2.7.2.686 [id number] [facility] l Miky [facility] 2024-04-14 11:30:00 2024-04-14 11:30:00 Outpatient GUSTAVO DELANEY CYNTHIA [id number] Cynthia [facility] 2024-04-02 20:43:00 2024-04-03 00:56:00 Emergency X CHRISSY MOHR, CHRISSY [facility] [id number] [facility] 2024-04-02 20:43:00 2024-04-03 00:56:00 Emergency Chrissy Mohr [facility] 1..840.114 350.1.13.10 4.2.7.2.686 [id number] [facility] 2024-03-08 00:00:00 2024-03-08 00:00:00 Outpatient MD CYNTHIA MARLEY [id number] [facility] 2024-01-14 00:00:00 2024-02-20 18:26:15 Patient Secure Msg Doctor Unassigned, [place] [facility] 1..840.114 350.1.13.10 4.2.7.2.686 [id number] [facility] 2024-02-19 00:00:00 2024-02-19 00:00:00 Outpatient GUSTAVO DELANEY CYNTHIA MTZ [id number] [facility] 2024-02-16 10:15:00 2024-02-16 10:15:00 Outpatient SALLYMORALES HIGHTOWER [id number] [facility] 2024-01-13 00:00:00 2024-02-13 18:19:27 Patient Secure Msg Doctor Unassigned, [place] [facility] [place] ..840.114 350.1.13.10 4.2.7.2.686 [id number] [facility] 2024-01-12 22:04:00 2024-01-13 00:00:00 Emergency X VASUT, RADHA VASUT, RADHA [facility] E[facility] [id number] [facility] 2024-01-12 22:04:00 2024-01-13 00:00:00 Emergency Radha Wyatt [facility] 1.2.840.114 350.1.13.10 4.2.7.2.686 [id number] [facility] 2024-01-12 00:00:00 2024-01-12 16:22:23 Transition of Care Veronique Carrillo BLAYNE BENAVIDES 1.2.840.114 350.1.13.10 4.2.7.2.686 [id number] [facility] 2024-01-09 16:11:00 2024-01-10 15:56:00 Outpatient X DARRICK FRY [facility] SHEA [id number] [facility] 2024-01-09 16:11:00 2024-01-10 15:56:00 Hospital Encounter Olena Doyle K Paige Khan, Mohammad A. [facility] 1.2840.114 350.1.13.10 4.2.7.2.686 [id number] [facility] 2023-12-17 00:00:00 2023-12-17 00:00:00 Transition of Care Jodi Berg BLAYNE BNEAVIDES 1.2.840.114 350.1.13.10 4.2.7.2.686 [id number] [facility] 2023-12-14 13:34:00 2023-12-15 11:08:00 Outpatient X TAL BENAVIDEZ [facility] [id number] [facility] 2023-12-14 13:34:00 2023-12-15 11:08:00 [facility] 1.2.840.114 350.1.13.10 4.2.7.2.686 [id number] [facility] 2023-12-07 00:00:00 2023-12-07 00:00:00 Outpatient GUSTAVO DELANEY [id number] Cynthia valdo 2023-12-02 13:05:00 2023-12-03 19:00:00 Outpatient X IRWINLOUISA MOJGAN [facility] [id number] [facility] 2023-12-02 13:05:00 2023-12-03 19:00:00 Hospital Encounter Connor Renee Wissam Ibrahim [facility] 1.2.840.114 350.1.13.10 4.2.7.2.686 [id number] [facility] 2023-12-01 00:00:00 2023-12-01 10:40:26 Transition of Care Madeline Mckinley 1.2.840.114 350.1.13.10 4.2.7.2.686 [id number] [facility] 2023-11-30 00:00:00 2023-11-30 10:41:56 Transition of Care MckinleyMadeline guthrie WALLACE PLACHRISTIAN 1.2.840.114 350.1.13.10 4.2.7.2.686 [id number] [facility] 2023-11-21 21:12:00 2023-11-28 16:01:00 Inpatient X MADELINE PIERRE [facility] [id number] [facility] 2023-11-21 21:12:00 2023-11-28 16:01:00 Hospital Encounter Madeline Pierre Donnell Khan, Rizwan Al Hemyari, Ryder Davis [facility] 1.2.840.114 350.1.13.10 4.2.7.2.686 [id number] [facility] 2023-11-26 14:15:00 2023-11-26 14:15:00 Outpatient AARON LEDESMA CYNTHIA MTZ [id number] [facility] 2023-11-23 13:45:00 2023-11-23 14:45:00 Surgery Cris Molina [facility] 1.2.840.114 350.1.13.10 4.2.7.2.686 [id number] [facility] 2023-11-18 00:00:00 2023-11-18 00:00:00 Outpatient EFRA BABCOCK [id number] [facility] 2023-11-15 00:00:00 2023-11-15 00:00:00 Outpatient CYNTHIA MTZ [id number] [facility] 2023-11-15 00:00:00 2023-11-15 00:00:00 Outpatient CYNTHIA MTZ [id number] [facility] 2023-11-15 00:00:00 2023-11-15 00:00:00 Outpatient CYNTHIA MTZ [id number] [facility] 2023-11-12 15:15:00 2023-11-12 15:15:00 Outpatient GUSTAVO DELANEY [id number] [facility] 2023-11-12 00:00:00 2023-11-12 00:00:00 Outpatient CYNTHIA MTZ [id number] [facility] 2023-11-10 09:30:00 2023-11-10 09:30:00 Outpatient MYLA LIEBERMAN [id number] [facility] 2023-11-09 00:00:00 2023-11-09 00:00:00 Outpatient GUSTAVO DELANEY [id number] [facility] 2023-11-09 00:00:00 2023-11-09 00:00:00 Outpatient MYLA LIEBERMAN [id number] [facility] 2023-11-07 17:51:00 2023-11-07 22:04:00 emergency [facility] [id number] 2023-11-07 17:51:00 2023-11-07 22:04:00 Emergency ER [facility] [id number] [facility] 2023-11-05 00:00:00 2023-11-05 00:00:00 Outpatient TIFFANY PUENTE [id number] [facility] 2023-11-03 00:00:00 2023-11-03 00:00:00 Outpatient CYNTHIA MTZ [id number] [facility] 2023-10-29 00:00:00 2023-10-29 00:00:00 Outpatient GUSTAVO DELANEY [id number] [facility] 2023-10-26 00:00:00 2023-10-26 00:00:00 Outpatient EFRA BABCOCK [id number] [facility] 2023-10-22 00:00:00 2023-10-22 00:00:00 Outpatient GUSTAVO DELANEY [id number] [facility] 2023-10-16 11:10:00 2023-10-16 11:10:00 Outpatient SIDDHARTH STANFORD [id number] [facility] 2023-10-15 00:00:00 2023-10-15 00:00:00 Outpatient MD CYNTHIA MARLEY [id number] [facility] 2023-10-15 00:00:00 2023-10-15 00:00:00 Outpatient MARGOT GUILLEN [id number] [facility] 2023-10-15 00:00:00 2023-10-15 00:00:00 Outpatient MARGOT GUILLEN [id number] [facility] 2023-10-06 10:45:00 2023-10-06 10:45:00 Outpatient SARAI JULES [id number] [facility] 2023-10-05 11:30:00 2023-10-05 11:30:00 Outpatient PREZAS, GUSTAVO MTZ CYNTHIA [id number] Cynthia [facility] 2023-10-01 00:00:00 2023-10-01 00:00:00 Outpatient PREZAS, GUSTAVO MTZ CYNTHIA [id number] Cynthia [facility] 2023-09-30 14:15:00 2023-09-30 14:15:00 Outpatient PREZAS, GUSTAVO MTZ CYNTHIA [id number] Cynthia [facility] 2023-09-24 00:00:00 2023-09-24 00:00:00 Outpatient PREZAS, GUSTAVO MTZ CYNTHIA [id number] [facility] 2023-09-23 00:00:00 2023-09-23 00:00:00 Outpatient TIFFANY PUENTE [id number] [facility] 2023-09-22 00:00:00 2023-09-22 00:00:00 Outpatient PREZAS, GUSTAVO MTZ YCNTHIA [id number] Cynthia [facility] 2023-09-22 00:00:00 2023-09-22 00:00:00 Outpatient MARGOT GUILLEN CYNTHIA CYNTHIA [id number] Cynthia [facility] 2023-09-16 00:00:00 2023-09-16 00:00:00 Outpatient PREZAS, GUSTAVO MTZ CYNTHIA [id number] Cynthia [facility] 2023-09-16 00:00:00 2023-09-16 00:00:00 Outpatient PREZAS, GUSTAVO MTZ CYNTHIA [id number] Cynthia [facility] 2023-09-16 00:00:00 2023-09-16 00:00:00 Outpatient PREZAS, GUSTAVO MTZ CYNTHIA [id number] [facility] 2023-09-14 00:00:00 2023-09-14 00:00:00 Outpatient MARGOT GUILLEN CYNTHIA MTZ [id number] [facility] 2023-09-14 00:00:00 2023-09-14 00:00:00 Outpatient GUILLENMARGOT PIERCE CYNTHIA MTZ [id number] Cynthia [facility] 2023-09-11 11:00:00 2023-09-11 11:00:00 Outpatient YONATAN LORENZO CYNTHIA MTZ [id number] [facility] 2023-09-09 00:00:00 2023-09-09 00:00:00 Outpatient CYNTHIA MTZ [id number] [facility] 2023-09-04 00:14:00 2023-09-08 10:51:00 Inpatient ER EDWARD FARRELL DEISI Neurosurger y [id number] [facility] 2023-09-04 00:14:00 2023-09-08 10:51:00 Hospital Encounter ER London Loyola, Pankaj Fry Edward Sosa [facility] [id number] [facility] 2023-09-07 18:41:43 2023-09-07 18:41:43 Outpatient EDWARD MANE YUNGRigoberto [facility] [id number] [facility] 2023-09-03 20:52:00 2023-09-03 23:44:00 emergency [facility] [id number] 2023-09-03 20:52:00 2023-09-03 23:44:00 Emergency ER DRE [facility] [id number] [facility] 2023-09-02 00:00:00 2023-09-02 00:00:00 Outpatient TIFFANY PUENTE [id number] [facility] 2023-09-01 15:30:00 2023-09-01 15:30:00 Outpatient DEMETRIUS TOBAR [id number] [facility] 2023-08-19 00:00:00 2023-08-19 00:00:00 [facility] [id number] [facility] 2023-08-13 00:00:00 2023-08-13 13:44:39 Orders Only Quin Scruggs [facility] [id number] [facility] 2023-08-12 13:49:00 2023-08-12 16:12:00 Emergency X MJ BRYAN [facility] ERT [id number] [facility] 2023-08-12 13:49:00 2023-08-12 16:12:00 Emergency Mj Bryan [facility] 1.2.840.114 350.1.13.10 4.2.7.2.686 [id number] [facility] 2023-06-15 00:00:00 2023-06-18 10:20:39 Orders Only Provider, Not In System [facility] [id number] [facility] 2023-06-13 03:43:00 2023-06-16 19:45:00 Inpatient ER AYDEE GO [facility] Internal Med [id number] [facility] 2023-06-13 03:43:00 2023-06-16 19:45:00 Hospital Encounter ER Marianela Collazo Sahar [facility] [id number] [facility] 2023-06-13 16:30:06 2023-06-13 16:30:06 Outpatient AYDEE DICKENS [facility] [id number] [facility] 2023-06-13 00:00:00 2023-06-13 00:00:00 Orders Only [facility] [id number] [facility] 2023-06-13 00:00:00 2023-06-13 00:00:00 Travel [facility] [id number] [facility] 2023-06-12 00:00:00 2023-06-12 00:00:00 Telephone Dallas Gomez [facility] [id number] [facility] 2023-05-28 06:45:00 2023-06-04 17:36:00 Inpatient ADAM ROYAL [facility] Surgery [id number] [facility] 2023-05-28 06:45:00 2023-06-04 17:36:00 Hospital Encounter Adam Royal [facility] [id number] [facility] 2023-06-01 09:10:00 2023-06-01 13:00:00 Anesthesia Event Harry Newsome Mujtaba [facility] [id number] [facility] 2023-06-01 09:00:00 2023-06-01 11:30:00 Surgery Adam Garcia [facility] [id number] [facility] 2023-06-01 09:47:57 2023-06-01 09:47:57 Outpatient ADAM ROYAL [facility] [id number] [facility] 2023-06-01 09:40:34 2023-06-01 09:40:34 Outpatient ADAM ROYAL [facility] [id number] [facility] 2023-05-31 09:25:55 2023-05-31 23:59:00 Inpatient ADAM ROYAL [facility] [id number] [facility] 2023-05-31 09:00:00 2023-05-31 23:59:00 Hospital Encounter Adam Garcia [facility] [id number] [facility] 2023-05-28 18:15:29 2023-05-28 18:15:29 Outpatient ADAM ROYAL [facility] [id number] [facility] 2023-05-28 08:30:00 2023-05-28 11:54:00 Anesthesia Event Yue Bui [facility] [id number] [facility] 2023-05-28 11:41:14 2023-05-28 11:41:14 Outpatient ADAM ROYAL [facility] [id number] [facility] 2023-05-28 08:30:00 2023-05-28 11:00:00 Surgery Adam Garcia [facility] [id number] [facility] 2023-05-28 10:00:47 2023-05-28 10:00:47 Outpatient ADAM ROYAL [facility] [id number] [facility] 2023-05-28 00:00:00 2023-05-28 00:00:00 Travel [facility] [id number] [facility] 2023-05-26 09:00:00 2023-05-26 09:00:00 Hospital Encounter Adma Garcia [facility] [id number] [facility] 2023-05-26 00:00:00 2023-05-26 00:00:00 Outpatient EL ADAM GARCIA [facility] [id number] [facility] 2023-05-26 00:00:00 2023-05-26 00:00:00 Outpatient EL SLE SLE [id number] SLE 2023-05-26 00:00:00 2023-05-26 00:00:00 Travel [facility] [id number] [facility] 2023-05-13 11:43:03 2023-05-13 11:43:03 Outpatient S[facility] [id number] Adria Martínez 2023-05-12 00:00:00 2023-05-12 00:00:00 Orders Only Adam Garcia [facility] [id number] [facility] 2023-05-08 14:11:21 2023-05-08 14:11:21 Outpatient SFA [facility] 1020 Adria Martínez 2023-03-29 19:25:00 2023-04-02 20:48:00 Inpatient ER THOMAS LOZOYA [facility] [id number] [facility] 2023-03-29 19:25:00 2023-04-02 20:48:00 Hospital Encounter ER Connie Davey Shireen Kulkarni, Thomas Reddy [facility] [id number] [facility] 2023-03-31 08:32:56 2023-03-31 00:00:00 Inpatient ER MARIAH ALDRIDGE SLEH SLE [id number] [facility] 2023-03-30 10:24:12 2023-03-30 23:59:00 Outpatient ER CONNIE DAVEY SLERigoberto SLE [id number] [facility] 2023-03-30 09:40:00 2023-03-30 23:59:00 Hospital Encounter Connie Davey [facility] [id number] [facility] 2023-03-30 13:46:20 2023-03-30 13:46:20 Outpatient ER [facility] [id number] [facility] 2023-03-30 13:46:14 2023-03-30 13:46:14 Outpatient ER MARIAH ALDRIDGE [facility] [id number] [facility] 2023-03-30 10:24:04 2023-03-30 10:24:04 Outpatient ER CONNIE DAVEY [facility] [id number] [facility] 2023-03-30 00:00:00 2023-03-30 00:00:00 Orders Only [facility] [id number] [facility] 2023-03-30 00:00:00 2023-03-30 00:00:00 Travel [facility] [id number] [facility] 2022-12-11 08:56:00 2022-12-11 15:29:00 Emergency X Alfonso ALVARADO [facility] ERT [id number] [facility] 2022-12-11 08:56:00 2022-12-11 15:29:00 Emergency Alfonso Alvarado [facility] 1..840.114 350.1.13.10 4.2.7.2.686 [id number] [facility] 2022-11-17 17:25:00 2022-11-18 01:19:00 Emergency X RITCHIE MOTTA [facility] ERT [id number] [facility] 2022-11-17 17:25:00 2022-11-18 01:19:00 Emergency Ritchie Motta [facility] 1..840.114 350.1.13.10 4.2.7.2.686 [id number] [facility] 2022-08-28 00:00:00 2022-08-28 00:00:00 Patient Outreach Margot Beckman 1.2.840.114 350.1.13.10 4.2.7.2.686 [id number] [facility] 2022-08-20 00:00:00 2022-08-20 00:00:00 Patient Outreach Margot Beckman 1.2.840.114 350.1.13.10 4.2.7.2.686 [id number] [facility] 2022-08-02 17:30:00 2022-08-03 14:29:00 Outpatient ER PARRISH WHEATLEY [facility] Neurology [id number] [facility] 2022-08-02 17:30:00 2022-08-03 14:29:00 Hospital Encounter Halima Guan Kinjal M Ibe, Chimkama Ngozi Cynthia [facility] [id number] [facility] 2022-08-03 00:00:00 2022-08-03 00:00:00 Orders Only [facility] [id number] [facility] 2022-08-02 00:00:00 2022-08-02 00:00:00 Travel [facility] [id number] [facility] 2022-07-31 11:42:00 2022-08-01 21:48:00 Inpatient Valeria DAMI LOWRY [facility] [id number] [facility] 2022-07-31 11:42:00 2022-08-01 21:48:00 Hospital Encounter Megan Rondon Yaman [facility] 1.2.840.114 350.1.13.10 4.2.7.2.686 [id number] [facility] 2022-08-01 00:00:00 2022-08-01 00:00:00 Transition of Care NicoleMaria Teresa pacheco 1.2.840.114 350.1.13.10 4.2.7.2.686 [id number] [facility] 2022-07-28 14:41:38 2022-07-28 14:41:38 Outpatient [facility] [id number] Adria Martínez 2022-07-28 00:00:00 2022-07-28 00:00:00 Outpatient Visit [id number] 2022-07-24 13:24:40 2022-07-24 13:24:40 Outpatient [facility] [id number] Adria Galan Mauricio 2022-05-23 14:51:01 2022-05-23 14:51:01 Outpatient [facility] [id number] Adria Galan Mauricio 2022-05-23 00:00:00 2022-05-23 00:00:00 Outpatient Visit [id number] 2022-05-04 20:22:00 2022-05-08 14:44:00 [facility] [id number] [facility] 2022-05-04 20:22:00 2022-05-08 14:44:00 Emergency JonorBrandyn [facility] 1.2.840.114 350.1.13.10 4.2.7.2.686 [id number] [facility] 2022-04-13 13:06:00 2022-04-15 15:00:00 Inpatient X SELINA [facility]ARTINES [facility] BERNARDINO [id number] [facility] 2022-04-13 13:06:00 2022-04-15 15:00:00 Hospital Encounter [facility]as [facility] 1.2.840.114 350.1.13.10 4.2.7.2.686 [id number] [facility] 2022-02-19 10:20:00 2022-02-19 10:30:00 Imm/Inj Visit Vaccine, [place] Dangelo Pak [facility] 1.2.840.114 350.1.13.10 4.2.7.2.686 [id number] [facility] 2022-02-19 10:20:00 2022-02-19 10:20:00 Outpatient JOSE MENDOZA [facility] [id number] [facility] 2021-11-23 15:07:00 2021-11-23 17:03:00 Emergency [facility] ERT [id number] [facility] 2021-11-23 15:07:00 2021-11-23 17:03:00 Emergency Megan Rondon Folusho F [facility] 1.2840.114 350.1.13.10 4.2.7.2.686 [id number] [facility] 2021-11-21 09:40:00 2021-11-21 09:40:00 Outpatient R [facility] [id number] [facility] 2021-05-24 09:30:00 2021-05-24 09:30:00 Outpatient R JOSE PAK [facility] [id number] [facility] 2021-05-24 08:47:51 2021-05-24 08:57:51 Imm/Inj Visit Vaccine, [place] Dangelo Pak [facility] 1.2.840.114 350.1.13.10 4.2.7.2.686 [id number] [facility] 2021-05-03 09:40:00 2021-05-03 09:59:35 Outpatient R JOSE PAK [facility] [id number] [facility] 2021-05-03 09:17:43 2021-05-03 09:59:35 Imm/Inj Visit Vaccine, [place] Jose Santiago [facility] 1.2.840.114 350.1.13.10 4.2.7.2.686 [id number] [facility] 2021-04-16 00:00:00 2021-04-16 00:00:00 Orders Only Doctor Unassigned, [place] [facility] 1.2.840.114 350.1.13.10 4.2.7.2.686 [id number] [facility] 2021-03-17 00:00:00 2021-03-17 00:00:00 Telephone Miky Nava [facility] 1.2.840.114 350.1.13.10 4.2.7.2.686 [id number] [facility] 2021-03-16 20:08:00 2021-03-16 23:24:00 Emergency Fabrice Chakraborty [facility] 1.2.840.114 350.1.13.10 4.2.7.2.686 [id number] [facility] 2021-03-14 18:59:34 2021-03-14 20:19:13 Urgent Care Lydia Desouza Unknown, Attending [facility] 1.2.840.114 350.1.13.10 4.2.7.2.686 [id number] [facility] 2021-03-14 19:00:00 2021-03-14 19:00:00 Outpatient R UNKNOWN, ATTENDING [facility] [id number] [facility] 2021-02-19 10:49:00 2021-02-19 14:48:00 Emergency Estefania Monroy [facility] 1.2.840.114 350.1.13.10 4.2.7.2.686 [id number] [facility] 2019-03-09 00:00:00 2019-03-09 00:00:00 Yehuda Zimmerman [facility] 1.2.840.114 350.1.13.10 4.2.7.2.686 [id number] [facility] 2019-03-09 00:00:00 2019-03-09 00:00:00 Yehuda Zimmerman [facility] 1.2.840.114 350.1.13.10 4.2.7.2.686 [id number] Results Test Description Test Time Test Comments Results Result Co mments Source [facility] Fpj-Whv3768-75-15 02:35:03* Test Item Value Reference Range Interpretation Comme nts NT-proBNP (test code = 82111-7) 2090 pg/mL <=125 H LYNDSAY (test code = LYNDSAY) Positive: Heart Failure Likely Lab Interpretation (test code = 81474-2) Abnormal [facility] Metabolic Panel (NA, K, CL, CO2, GLUCOSE, BUN, CREATININE, CA)2024-04-03 02:26:01* Test Item Value Reference Range Interpretation Comme [facility] NA (test code = 2319157720) 136 mmol/L 135-145 K (test code = 0472005790) 3.2 mmol/L 3.5-5.0 L CL (test code = 9744789722) 101 mmol/L 98-108 CO2 TOTAL (test code = 0628293315) 23 mmol/L 23-31 AGAP (test code = 4348416054) 12 2-16 BUN (test code = 3425394097) 4 mg/dL 7-23 L GLUCOSE (test code = 7307656560) 165 mg/dL 70-110 H CREATININE (test code = 2160-0) 0.67 mg/dL 0.50-1.04 CALCIUM (test code = 5771999035) 8.5 mg/dL 8.6-10.6 L eGFR (test code = 82323-8) 105.3 mL/min/1.73m2 CKD-EPI eGFR (2020). Assuming creatinine has been stable day-to-day for at least three months, the eGFR indicates Category G1 (>= 90 mL/min/1.73 m2) Lab Interpretation (test code = 12354-8) Abnormal [facility] with [id number] 02:19:04* Test Item Value Reference Range Interpretation [...] g/dL 31.6-35.1 L RDW-SD (test code = 81450-6) 53.9 fL 39.0-49.9 H RDW-CV (test code = 788-0) 18.2 % 12.0-15.5 H PLT (test code = 777-3) 458 166-358 H MPV (test code = 41631-0) 8.6 fL 9.5-12.9 L NRBC/100 WBC (test code = 1857302653) 0.0 0.0-10.0 NRBC x10^3 (test code = 7317342501) See_Comment [Automated messa ge] The system which generated this result transmitted reference range: 10*3/?L. The reference range was not used to interpret this result as normal/abnormal. GRAN MAT (NEUT) % (test code = 770-8) 62.8 % IMM GRAN % (test code = 9464255240) 0.40 % LYMPH % (test code = 736-9) 28.0 % MONO % (test code = 5905-5) 6.5 % EOS % (test code = 713-8) 1.3 % BASO % (test code = 706-2) 1.0 % GRAN MAT x10^3(ANC) (test code = 7708058865) 4.36 10*3/uL 1.88-7.09 IMM GRAN x10^3 (test code = 0425486185) 0.03 10*3/uL 0.00-0.06 LYMPH x10^3 (test code = 731-0) 1.94 10*3/uL 1.32-3.29 MONO x10^3 (test code = 742-7) 0.45 10*3/uL 0.33-0.92 EOS x10^3 (test code = 711-2) 0.09 10*3/uL 0.03-0.39 BASO x10^3 (test code = 704-7) 0.07 10*3/uL 0.01-0.07 Lab Interpretation (test code = 71413-5) [facility]normal [facility] Rock[facility] Whole Ekwjn9109-84-85 02:05:20* Test Item Value Reference Range Interpretation Comme nts LACTIC ACID (test code = 2711581272) 2.61 mmol/L 0.50-2.20 H Lab Interpretation (test cod e = 64751-9) Abnormal [facility] RockTroponin [id number] 04:25:23* Test Item Value Reference Range Interpretation Comme nts TROPONIN I (test code = 2016114647) 0.004 ng/mL <=0.034 LYNDSAY (test code = [...] of biotin. Lab Interpretation (test code = 55589-9) Normal [facility] RockComp. Metabolic Panel (76621)2024-01-13 04:13:41* Test Item Value Reference Range Interpretation Comme nts NA (test code = 9162593877) 140 mmol/L 135-145 K (test code = 7619837937) 3.7 mmol/L 3.5-5.0 CL (test code = 6349310192) 103 mmol/L 98-108 CO2 TOTAL (test code = 3919388501) 25 mmol/L 23-31 AGAP (test code = 2438125944) 12 2-16 BUN (test code = 0670906544) 12 mg/dL 7-23 GLUCOSE (test code = 1038528014) 143 mg/dL 70-110 H CREATININE (test code = 2160-0) 0.91 mg/dL 0.50-1.04 TOTAL BILI (test code = 0065779694) 0.4 mg/dL 0.1-1.1 CALCIUM (test code = 4117261221) 9.0 mg/dL 8.6-10.6 T PROTEIN (test code = 8076549460) 7.7 g/dL 6.3-8.2 ALBUMIN (test code = 3362613535) 4.2 g/dL 3.5-5.0 ALK PHOS (test code = 9960013920) 93 U/L 34-122 ALTv (test code = 1742-6) 9 U/L 5-35 AST(SGOT) (test code = 7587732252) 18 U/L 13-40 eGFR (test code = 38480-6) 76.5 mL/min/1.73m2 CKD-EPI eGFR (2020). Assuming creatinine has been stable day-to-day for at least three months, the eGFR indicates Category G2 (60 - 89 mL/min/1.73 m2) Lab Interpretation (test code = 04733-2) Abnormal [facility] RockCb with Bcah1194-72-39 03:58:19* Test Item Value Reference Range Interpretation [...] g/dL 31.6-35.1 L RDW-SD (test code = 08553-3) 59.0 fL 39.0-49.9 H RDW-CV (test code = 788-0) 18.7 % 12.0-15.5 H PLT (test code = 777-3) 394 166-358 H MPV (test code = 74230-3) 8.5 fL 9.5-12.9 L NRBC/100 WBC (test code = 4541956190) 0.0 0.0-10.0 NRBC x10^3 (test code = 5759034752) See_Comment [Automated messa ge] The system which generated this result transmitted reference range: 10*3/?L. The reference range was not used to interpret this result as normal/abnormal. GRAN MAT (NEUT) % (test code = 770-8) 60.6 % IMM GRAN % (test code = 0417251174) 1.40 % LYMPH % (test code = 736-9) 26.9 % MONO % (test code = 5905-5) 8.7 % EOS % (test code = 713-8) 1.8 % BASO % (test code = 706-2) 0.6 % GRAN MAT x10^3(ANC) (test code = 4087321840) 5.14 10*3/uL 1.88-7.09 IMM GRAN x10^3 (test code = 6917492409) 0.12 10*3/uL 0.00-0.06 H LYMPH x10^3 (test code = 731-0) 2.28 10*3/uL 1.32-3.29 MONO x10^3 (test code = 742-7) 0.74 10*3/uL 0.33-0.92 EOS x10^3 (test code = 711-2) 0.15 10*3/uL 0.03-0.39 BASO x10^3 (test code = 704-7) 0.05 10*3/uL 0.01-0.07 Lab Interpretation (test code = 35250-4) Abnormal [facility] RockTransthoracic echo (TTE)2024-01-10 16:40:03* Test Item Value Reference Range Interpretation Comme nts Height (test code = 1163653850) 62 in Weight (test code = 3671905667) 200 lbs Systolic BP (test code = 4056269053) 90 mmHg Diastolic BP (test code = 7046944016) 66 mmHg Heart Rate (test code = 3501279560) 69 bpm BSA (test code = 9087214484) 1.91 m2 LVOT diameter (test code = 8033213893) 2.13 cm LVOT area (test code = 2264042348) 3.60 cm2 LA size (test code = 2023391189) 3.5 cm LAV(MOD-sp4) (test code = 1397655523) 55.70 mL E wave decelartion time (test code = 9576038228) 0.12 s MV stenosis pressure 1/2 time (test code = 2339795422) 35.0 ms MV Peak A Evette (test code = 6940997044) 117.0 cm/s MV Peak E Evette (test code = 9266496114) 94.3 cm/s E/A ratio (test code = 9560844201) 0.81 ratio MV E/e' septal (test code = 5561366818) 10.2 cm/s LVOT stroke volume (test code = 9649989760) 59.50 cm3 LVOT peak evette (test code = 6423241094) 99.8 cm/s LVOT mn grad (test code = 9939642084) 1.9 mmHg AV LVOT peak gradient (test code = 3006938138) 4.0 mmHg LVOT peak VTI (test code = 7137020389) 16.7 cm LV V1 mean (test code = 8470103614) 64.40 cm/s Aortic valve mean velocity (test code = 9565534508) 155.3 cm/s Ao peak evette (test code = 2499159779) 222.6 cm/s Ao VTI (test code = 5508599603) 33.6 cm AV area by cont VTI (test code = 0358434214) 1.8 cm2 AV area peak evette (test code = 5804509449) 1.6 cm2 Ao max PG (test code = 0901869074) 19.80 mm[Hg] AV peak gradient (test code = 4759529774) 19.8 mmHg AV valve area (test code = 1169018970) 1.77 cm2 AV mean gradient (test code = 7387078422) 10.6 mmHg AV regurgitation pressure 1/2 time (test code = 1858187410) 651.6 ms AI dec slope (test code = 0204412280) 180.60 cm/s2 AI max evette (test code = 2210652455) 401.80 cm/s AI max PG (test code = 8297891894) 64.60 mm[Hg] LVIDD (test code = 0414713611) 4.90 cm Left Ventricular End Diastolic Volume by Teichholz Method (test code = 0379160) 114.6 mL IVS (test code = 5257339817) 1.17 cm Interventricular Septum Diastolic Thickness by 2D (test code = 8293717) 1.17 cm LVPWD (test code = 5125988174) 1.17 cm PW (test code = 0104780188) 1.17 cm 0.6-1.1 EF(Teich) (test code = 4299491313) 20.70 % LVIDS (test code = 9451984837) 4.50 cm Left Ventricular End Systolic Volume by Teichholz Method (test code = 0743831) 90.9 mL FS (test code = 8072826798) 9 % EF - 2D (test code = 83591429) 20.70 % Radiology Study observation (narrative) (test code = 08095-5) LYNDSAY (test code = LYNDSAY) ?Left?Ventricle: Left [facility] RockLactic Acid Whole Qhvgt2316-44-37 02:02:28* Test Item Value Reference Range Interpretation Comme nts LACTIC ACID (test code = 2741336438) 1.36 mmol/L 0.50-2.20 Lab Interpretation (test cod e = 70986-5) Normal [facility] RockCT CHEST PULMONARY ZRZONMYEZ2933-35-32 01:16:45CTA CHEST WITH IV CONTRAST ORDERING PHYSICIAN: [...] spine.[facility] RockXR CHEST 1 [id number] 23:07:58Exam: Chest (1 View), 01/09/2024 4:15 PM. [...] seen.[facility] RockTROPONIN R8967-59-48 22:51:19* Test Item Value Reference Range Interpretation Comme nts TROPONIN I (test code = 0763661137) 0.006 ng/mL <=0.034 LYNDSAY (test code = [...] of biotin. Lab Interpretation (test code = 15275-1) Normal [facility] RockN-TERMINAL PYO-OUR0391-16-22 22:48:38* Test Item Value Reference Range Interpretation Comme nts NT-proBNP (test code = 47046-3) 877 pg/mL <=125 LYNDSAY (test code = LYNDSAY) Result Indeterminate-Consid er causes of NT-proBNP elevation other than Heart failure such as acute coronary syndrome, pulmonary embolism, pulmonary hypertension, sepsis, stroke, and renal dysfunction. Lab Interpretation (test code = 87861-3) [facility] (64561[facility]2024-01-09 22:42:20* Test Item Value Reference Range Interpretation Comme nts NA (test code = 7462065256) 137 mmol/L 135-145 K (test code = 4410298541) 3.8 mmol/L 3.5-5.0 CL (test code = 9913837510) 104 mmol/L 98-108 CO2 TOTAL (test code = 2098747957) 25 mmol/L 23-31 AGAP (test code = 0118026016) 8 2-16 BUN (test code = 7979899799) 7 mg/dL 7-23 GLUCOSE (test code = 5509937963) 96 mg/dL 70-110 CREATININE (test code = 2160-0) 0.60 mg/dL 0.50-1.04 TOTAL BILI (test code = 7176701594) 0.4 mg/dL 0.1-1.1 CALCIUM (test code = 1242252257) 8.7 mg/dL 8.6-10.6 T PROTEIN (test code = 7265147637) 7.0 g/dL 6.3-8.2 ALBUMIN (test code = 6476821602) 3.9 g/dL 3.5-5.0 ALK PHOS (test code = 9741887260) 101 U/L 34-122 ALTv (test code = 1742-6) 7 U/L 5-35 AST(SGOT) (test code = 7031548733) 20 U/L 13-40 eGFR (test code = 49233-2) 108.8 mL/min/1.73m2 CKD-EPI eGFR (20 21). Assuming creatinine has been stable day-to-day for at least three months, the eGFR indicates Category G1 (>= 90 mL/min/1.73 m2) [facility] RockD-UTETR9813-69-80 22:28:57* Test Item Value Reference Range Interpretation Comments D-DIMER (test code = 5355497885) 0.87 See_Comment H [Automated message] The system [...] a diagnosis. Lab Interpretation (test code = 88527-6) Abnormal [facility] WITH [id number] 22:09:01* Test Item Value Reference Range Interpretation [...] g/dL 31.6-35.1 L RDW-SD (test code = 19867-2) 58.1 fL 39.0-49.9 H RDW-CV (test code = 788-0) 18.6 % 12.0-15.5 H PLT (test code = 777-3) 312 166-358 MPV (test code = 19654-0) 8.3 fL 9.5-12.9 L NRBC/100 WBC (test code = 6955345508) 0.0 0.0-10.0 NRBC x10^3 (test code = 2158492437) See_Comment [Automated [employer] ge] The system which generated this result transmitted reference range: 10*3/?L. The reference range was not used to interpret this result as normal/abnormal. GRAN MAT (NEUT) % (test code = 770-8) 60.1 % IMM GRAN % (test code = 3126889837) 0.70 % LYMPH % (test code = 736-9) 27.3 % MONO % (test code = 5905-5) 10.1 % EOS % (test code = 713-8) 1.2 % BASO % (test code = 706-2) 0.6 % GRAN MAT x10^3(ANC) (test code = 9829331904) 5.12 10*3/uL 1.88-7.09 IMM GRAN x10^3 (test code = 5450395424) 0.06 10*3/uL 0.00-0.06 LYMPH x10^3 (test code = 731-0) 2.33 10*3/uL 1.32-3.29 MONO x10^3 (test code = 742-7) 0.86 10*3/uL 0.33-0.92 EOS x10^3 (test code = 711-2) 0.10 10*3/uL 0.03-0.39 BASO x10^3 (test code = 704-7) 0.05 10*3/uL 0.01-0.07 Lab Interpretation (test code = 02686-9) Abnormal [facility] GLUCOSE (AUTOMATED)2023-12-15 12:45:21* Test Item Value Reference Range Interpretation Comme nts POCT GLU (test code = 1471617400) 144 mg/dL 70-110 H Lab Interpretation (test cod e = 00702-3) Abnormal [facility] RockThyroid Stimulating Wvdvwhx8572-19-76 01:46:59 * Test Item Value Reference Range Interpretation Comme nts TSH (test code = 9830862255) 1.14 0.45-4.70 Lab Interpretation (test cod e = 79528-3) Normal [facility] RockFR [id number] 01:33:00* Test Item Value Reference Range Interpretation Comme nts FREE T3 (test code = 9922574780) 3.68 pg/mL 2.77-5.27 Lab Interpretation (test cod e = 80694-4) Normal [facility] GLUCOSE (AUTOMATED)2023-12-15 00:57:48* Test Item Value Reference Range Interpretation Comme nts POCT GLU (test code = 9924893846) 131 mg/dL 70-110 H Lab Interpretation (test cod e = 90369-7) Abnormal [facility] RockTroponin [id number] 21:45:52* Test Item Value Reference Range Interpretation Comme [facility] TROPONIN I (test code = 9727530268) 0.009 ng/mL <=0.034 LYNDSAY (test code = [...] of biotin. Lab Interpretation (test code = 20043-2) Normal [facility] RockComp. Metabolic Panel (88561)2023-12-14 20:19:49* Test Item Value Reference Range Interpretation Comme [facility] NA (test code = 6277270258) 138 mmol/L 135-145 K (test code = 7581676856) 3.5 mmol/L 3.5-5.0 CL (test code = 3804461931) 108 mmol/L 98-108 CO2 TOTAL (test code = 5565264731) 24 mmol/L 23-31 AGAP (test code = 1830474460) 6 2-16 BUN (test code = 9561662553) 7 mg/dL 7-23 GLUCOSE (test code = 6901323472) 96 mg/dL 70-110 CREATININE (test code = 2160-0) 0.51 mg/dL 0.50-1.04 TOTAL BILI (test code = 7675173343) 0.4 mg/dL 0.1-1.1 CALCIUM (test code = 1094178611) 8.6 mg/dL 8.6-10.6 T PROTEIN (test code = 9269304194) 6.8 g/dL 6.3-8.2 ALBUMIN (test code = 8511045879) 3.8 g/dL 3.5-5.0 ALK PHOS (test code = 7299133723) 107 U/L 34-122 ALTv (test code = 1742-6) 13 U/L 5-35 AST(SGOT) (test code = 8639122447) 28 U/L 13-40 eGFR (test code = 96461-3) 113.2 mL/min/1.73m2 CKD-EPI eGFR (20 21). Assuming creatinine has been stable day-to-day for at least three months, the eGFR indicates Category G1 (>= 90 mL/min/1.73 m2) [facility] RockTroponin [id number] 20:15:27* Test Item Value Reference Range Interpretation Comme nts TROPONIN I (test code = 8828793268) 0.009 ng/mL <=0.034 LYNDSAY (test code = [...] of biotin. Lab Interpretation (test code = 74870-5) Normal [facility] RockN-Terminal Ebq-Alj2954-07-27 20:12:51* Test Item Value Reference Range Interpretation Comme nts NT-proBNP (test code = 90280-8) 2250 pg/mL <=125 H LYNDSAY (test code = LYNDSAY) Positive: Heart Failure Likely Lab Interpretation (test code = 04395-8) Abnormal [facility] RockXR CHEST 1 [id number] 20:00:17EXAM: XR CHEST 1 VW COMPARISON: 12/02/2023 HISTORY: 53 years-old Female; shortness of breath FINDINGS: Lungs: The lung volumes are normal. Left upper lung calcified granuloma. Nofocal opacities. No pneumothorax. No pleural effusion. Heart/Mediastinum: The cardiac silhouette appears normal. Bones andsoft tissues: No acute osseous findings are detected.Redemonstrated ACDF projecting over the lower cervical spine.[facility] RockD-Ctvcc1708-56-46 19:45:05* Test Item Value Reference Range Interpretation Comments D-DIMER (test code = 7739779218) 1.33 See_Comment H [Automated message] The system [...] a diagnosis. Lab Interpretation (test code = 63798-7) Abnormal [facility] RockCbc with Kcrq1478-09-03 19:39:29* Test Item Value Reference Range Interpretation [...] g/dL 31.6-35.1 L RDW-SD (test code = 42334-7) 70.2 fL 39.0-49.9 H RDW-CV (test code = 788-0) 21.6 % 12.0-15.5 H PLT (test code = 777-3) 259 166-358 MPV (test code = 95452-1) 8.7 fL 9.5-12.9 L NRBC/100 WBC (test code = 7701372432) 0.0 0.0-10.0 NRBC x10^3 (test code = 2528985126) See_Comment [Automated messa ge] The system which generated this result transmitted reference range: 10*3/?L. The reference range was not used to interpret this result as normal/abnormal. GRAN MAT (NEUT) % (test code = 770-8) 57.7 % IMM GRAN % (test code = 6520695200) 0.40 % LYMPH % (test code = 736-9) 30.2 % MONO % (test code = 5905-5) 9.9 % EOS % (test code = 713-8) 0.8 % BASO % (test code = 706-2) 1.0 % GRAN MAT x10^3(ANC) (test code = 5585718757) 4.17 10*3/uL 1.88-7.09 IMM GRAN x10^3 (test code = 6006173595) 0.03 10*3/uL 0.00-0.06 LYMPH x10^3 (test code = 731-0) 2.19 10*3/uL 1.32-3.29 MONO x10^3 (test code = 742-7) 0.72 10*3/uL 0.33-0.92 EOS x10^3 (test code = 711-2) 0.06 10*3/uL 0.03-0.39 BASO x10^3 (test code = 704-7) 0.07 10*3/uL 0.01-0.07 Lab Interpretation (test code = 60361-2) Abnormal [facility] RockPOWI GLUCOSE (AUTOMATED)2023-12-03 21:30:58* Test Item Value Reference Range Interpretation Comme nts POCT GLU (test code = 5714843633) 102 mg/dL 70-110 Lab Interpretation (test cod e = 73401-3) Normal [facility] Metabolic Panel (NA, K, CL, CO2, GLUCOSE, BUN, CREATININE, CA)2023-12-03 18:22:31* Test Item Value Reference Range Interpretation Comme nts NA (test code = 0035228364) 135 mmol/L 135-145 K (test code = 6122051427) 3.9 mmol/L 3.5-5.0 CL (test code = 5345053164) 103 mmol/L 98-108 CO2 TOTAL (test code = 5147195668) 29 mmol/L 23-31 AGAP (test code = 6329625628) 3 2-16 BUN (test code = 5649755874) 12 mg/dL 7-23 GLUCOSE (test code = 1919215626) 85 mg/dL 70-110 CREATININE (test code = 2160-0) 0.63 mg/dL 0.50-1.04 CALCIUM (test code = 5376864450) 8.7 mg/dL 8.6-10.6 eGFR (test code = 15654-4) 107.6 mL/min/1.73m2 CKD-EPI eGFR (20 21). Assuming creatinine has been stable day-to-day for at least three months, the eGFR indicates Category G1 (>= 90 mL/min/1.73 m2) [facility] GLUCOSE (AUTOMATED)2023-12-03 16:52:56* Test Item Value Reference Range Interpretation Comme nts POCT GLU (test code = 7980562492) 98 mg/dL 70-110 Lab Interpretation (test cod e = 76402-3) Normal [facility] GLUCOSE (AUTOMATED)2023-12-03 13:01:11* Test Item Value Reference Range Interpretation Comme nts POCT GLU (test code = 3359749143) 102 mg/dL 70-110 Lab Interpretation (test cod e = 32102-3) Normal [facility] Metabolic Panel (NA, K, CL, CO2, GLUCOSE, BUN, CREATININE, CA)2023-12-03 10:22:08* Test Item Value Reference Range Interpretation Comme nts NA (test code = 3444275726) 138 mmol/L 135-145 K (test code = 7310549749) 3.2 mmol/L 3.5-5.0 L CL (test code = 1324386911) 105 mmol/L 98-108 CO2 TOTAL (test code = 7285279369) 26 mmol/L 23-31 AGAP (test code = 7695769322) 7 2-16 BUN (test code = 4770494101) 11 mg/dL 7-23 GLUCOSE (test code = 7055684342) 96 mg/dL 70-110 CREATININE (test code = 2160-0) 0.61 mg/dL 0.50-1.04 CALCIUM (test code = 4050059143) 8.6 mg/dL 8.6-10.6 eGFR (test code = 45097-5) 108.4 mL/min/1.73m2 CKD-EPI eGFR (2020). Assuming creatinine has been stable day-to-day for at least three months, the eGFR indicates Category G1 (>= 90 mL/min/1.73 m2) Lab Interpretation (test code = 00081-0) Abnormal [facility] RockMagnesium2024-05-16 10:22:08* Test Item Value Reference Range Interpretation Comme nts MAGNESIUM (test code = 5513374748) 1.9 mg/dL 1.7-2.4 Lab Interpretation (test cod e = 08884-1) Normal [facility] Round RockHepatic Function Panel (17116) (ALB,T.PRO,BILI T,BU/BC,ALT,AST,ALK PHOS)2023-12-03 10:22:08* Test Item Value Reference Range Interpretation Comme nts TOTAL BILI (test code = 0169909104) 0.5 mg/dL 0.1-1.1 BILI UNCON (test code = 2745260902) 0.2 mg/dL 0.1-1.1 BILI CONJ (test code = 8336748970) 0.0 mg/dL 0.0-0.3 T PROTEIN (test code = 8361034346) 6.7 g/dL 6.3-8.2 ALBUMIN (test code = 7765990886) 3.7 g/dL 3.5-5.0 ALK PHOS (test code = 2900360953) 135 U/L 34-122 H ALTv (test code = 1742-6) 26 U/L 5-35 AST(SGOT) (test code = 7488280137) 24 U/L 13-40 Lab Interpretation (test cod e = 62146-6) Abnormal [facility] RockAC Panel 21 + Lactic Kgtw7591-29-27 02:00:25* Test Item Value Reference Range Interpretation Comme nts PH (test code = 6256315186) 7.40 7.32-7.42 PCO2 NOEMI (test code = 0522161419) 40 41-51 L PO2 NOEMI (test code = 4468078953) 34 25-40 HCO3 NOEMI (test code = 6786083531) 24 24-28 AC VBE(BEAKER) (test code = 1025257808) -0.8 mEq/L THB NOEMI (test code = 4289735775) 9.3 g/dL 12.0-16.0 L %O2HB NOEMI (test code = 1982032506) 57.9 % 52.0-63.0 %COHB NOEMI (test code = 3974762872) 1.1 % 0.0-1.5 %METHB NOEMI (test code = 1862973144) 0.3 % 0.4-1.5 L VOL%O2 NOEMI (test code = 7082621487) 7.6 % 6.0-12.0 NA (test code = 6862073426) 139 mmol/L 135-145 K+ (test code = 5024476181) 3.5 mmol/L 3.5-5.0 AC CA IONZ (test code = 5533396043) 4.50 mg/dL 4.50-5.30 GLUCOSE (test code = 3841865657) 88 mg/dL 70-110 LACTIC ACID (test code = 4888387729) 1.63 mmol/L 0.50-2.20 QUES Lab Interpretation (test cod e = 45180-1) Abnormal [facility] RockCT CHEST PULMONARY YDDPIOHLQ6433-76-33 19:47:28HISTORY: Chest pain, rule out P.E. TECHNIQUE: [...] study.[facility] RockTroponin [id number] 19:38:49* Test Item Value Reference Range Interpretation Comme [facility] TROPONIN I (test code = 5574673120) 0.020 ng/mL <=0.034 LYNDSAY (test code = [...] of biotin. Lab Interpretation (test code = 23482-6) Normal [facility] [id number] 19:37:29* Test Item Value Reference Range Interpretation Comme nts NT-proBNP (test code = 75356-2) 3420 pg/mL <=125 H LYNDSAY (test code = LYNDSAY) Positive: Heart Failure Likely Lab Interpretation (test code = 36151-4) Abnormal [facility] with [id number] 19:28:47* Test Item Value Reference Range Interpretation [...] g/dL 31.6-35.1 L RDW-SD (test code = 39016-0) 68.9 fL 39.0-49.9 H RDW-CV (test code = 788-0) 22.6 % 12.0-15.5 H PLT (test code = 777-3) 379 166-358 H MPV (test code = 42178-5) 9.1 fL 9.5-12.9 L NRBC/100 WBC (test code = 4592099975) 0.0 0.0-10.0 NRBC x10^3 (test code = 7646077922) See_Comment [Automated messa ge] The system which generated this result transmitted reference range: 10*3/?L. The reference range was not used to interpret this result as normal/abnormal. GRAN MAT (NEUT) % (test code = 770-8) 73.5 % IMM GRAN % (test code = 5813143372) 1.70 % LYMPH % (test code = 736-9) 14.9 % MONO % (test code = 5905-5) 8.3 % EOS % (test code = 713-8) 1.2 % BASO % (test code = 706-2) 0.4 % GRAN MAT x10^3(ANC) (test code = 4159815058) 8.05 10*3/uL 1.88-7.09 H IMM GRAN x10^3 (test code = 7474599926) 0.19 10*3/uL 0.00-0.06 H LYMPH x10^3 (test code = 731-0) 1.63 10*3/uL 1.32-3.29 MONO x10^3 (test code = 742-7) 0.91 10*3/uL 0.33-0.92 EOS x10^3 (test code = 711-2) 0.13 10*3/uL 0.03-0.39 BASO x10^3 (test code = 704-7) 0.04 10*3/uL 0.01-0.07 Lab Interpretation (test code = 84429-5) [facility] 1 [id number] 19:28:17HISTORY: Dyspnea. TECHNIQUE: Portable AP view of the chest is obtained. Comparison made with11/21/2023 study. FINDINGS: No acute pneumonia. No pneumothorax or pleural effusion orpulmonary congestion detected. Mild cardiomegaly noted. Multilevel lowercervical ACDF surgical changes partially visualized. Mild degenerativechanges noted in the right glenohumeral joint. CONCLUSIONS: Mild cardiomegaly.[facility] Met[facility] Panel ([id number]) 2023-12-02 19:27:30* Test Item Value Reference Range Interpretation Comme nts NA (test code = 5772792570) 138 mmol/L 135-145 K (test code = 2706564711) 3.8 mmol/L 3.5-5.0 CL (test code = 0636859657) 106 mmol/L 98-108 CO2 TOTAL (test code = 7996338556) 22 mmol/L 23-31 L AGAP (test code = 2311034589) 10 2-16 BUN (test code = 0161776800) 11 mg/dL 7-23 GLUCOSE (test code = 9171987776) 103 mg/dL 70-110 CREATININE (test code = 2160-0) 0.56 mg/dL 0.50-1.04 TOTAL BILI (test code = 4656656402) 0.8 mg/dL 0.1-1.1 CALCIUM (test code = 8488761897) 8.9 mg/dL 8.6-10.6 T PROTEIN (test code = 9915087938) 7.3 g/dL 6.3-8.2 ALBUMIN (test code = 7416014548) 3.9 g/dL 3.5-5.0 ALK PHOS (test code = 4726812548) 147 U/L 34-122 H ALTv (test code = 1742-6) 34 U/L 5-35 AST(SGOT) (test code = 0372210541) 30 U/L 13-40 eGFR (test code = 75142-3) 110.7 mL/min/1.73m2 CKD-EPI eGFR (2020). Assuming creatinine has been stable day-to-day for at least three months, the eGFR indicates Category G1 (>= 90 mL/min/1.73 m2) Lab Interpretation (test code = 46858-9) [facility] Rock[facility]Terminal Kli-Ryz5060-80-11 17:53:15* Test Item Value Reference Range Interpretation Comme [facility] NT-proBNP (test code = 53705-5) 1070 pg/mL <=125 H LYNDSAY (test code = LYNDSAY) Positive: Heart Failure Likely Lab Interpretation (test code = 89966-1) [facility]normal [facility] GLU[facility]SE (AUTOMATED)2023-11-28 16:41:29* Test Item Value Reference Range Interpretation Comme nts POCT GLU (test code = 5274405910) 129 mg/dL 70-110 H Lab Interpretation (test cod e = 40803-9) Abnormal [facility] RockMagnesium2024-05-11 10:02:12* Test Item Value Reference Range Interpretation Comme nts MAGNESIUM (test code = 7734274640) 2.1 mg/dL 1.7-2.4 Lab Interpretation (test cod e = 53076-5) Normal [facility] RockPhosphorus2024-05-11 10:02:12* Test Item Value Reference Range Interpretation Comme nts PHOSPHORUS (test code = 6142023965) 5.9 mg/dL 2.5-5.0 H Lab Interpretation (test cod e = 93043-6) Abnormal [facility] RockComp. Metabolic Panel (71917)2023-11-28 10:02:12* Test Item Value Reference Range Interpretation Comme nts NA (test code = 5457582348) 140 mmol/L 135-145 K (test code = 3847417087) 3.7 mmol/L 3.5-5.0 CL (test code = 8724112826) 98 mmol/L 98-108 CO2 TOTAL (test code = 7784669340) 33 mmol/L 23-31 H AGAP (test code = 9337989848) 9 2-16 BUN (test code = 1640197240) 24 mg/dL 7-23 H GLUCOSE (test code = 3877340892) 107 mg/dL 70-110 CREATININE (test code = 2160-0) 0.61 mg/dL 0.50-1.04 TOTAL BILI (test code = 0939232630) 0.6 mg/dL 0.1-1.1 CALCIUM (test code = 1674159246) 8.0 mg/dL 8.6-10.6 L T PROTEIN (test code = 9767615941) 6.0 g/dL 6.3-8.2 L ALBUMIN (test code = 7158845462) 3.4 g/dL 3.5-5.0 L ALK PHOS (test code = 8221509264) 173 U/L 34-122 H ALTv (test code = 1742-6) 61 U/L 5-35 H AST(SGOT) (test code = 5561391758) 29 U/L 13-40 eGFR (test code = 66076-5) 108.4 mL/min/1.73m2 CKD-EPI eGFR (2020). Assuming creatinine has been stable day-to-day for at least three months, the eGFR indicates Category G1 (>= 90 mL/min/1.73 m2) Lab Interpretation (test code = 23751-6) Abnormal [facility] with Lkxb5229-94-86 09:37:29* Test Item Value Reference Range Interpretation [...] g/dL 31.6-35.1 L RDW-SD (test code = 26322-0) 65.6 fL 39.0-49.9 H RDW-CV (test code = 788-0) 22.0 % 12.0-15.5 H PLT (test code = 777-3) 292 166-358 MPV (test code = 33052-4) 9.1 fL 9.5-12.9 L NRBC/100 WBC (test code = 9329888837) 0.0 0.0-10.0 NRBC x10^3 (test code = 0901443196) See_Comment [Automated messa ge] The system which generated this result transmitted reference range: 10*3/?L. The reference range was not used to interpret this result as normal/abnormal. GRAN MAT (NEUT) % (test code = 770-8) 62.0 % IMM GRAN % (test code = 3385451263) 1.20 % LYMPH % (test code = 736-9) 28.5 % MONO % (test code = 5905-5) 7.3 % EOS % (test code = 713-8) 0.9 % BASO % (test code = 706-2) 0.1 % GRAN MAT x10^3(ANC) (test code = 1938289407) 4.98 10*3/uL 1.88-7.09 IMM GRAN x10^3 (test code = 1834065647) 0.10 10*3/uL 0.00-0.06 H LYMPH x10^3 (test code = 731-0) 2.29 10*3/uL 1.32-3.29 MONO x10^3 (test code = 742-7) 0.59 10*3/uL 0.33-0.92 EOS x10^3 (test code = 711-2) 0.07 10*3/uL 0.03-0.39 BASO x10^3 (test code = 704-7) 0.01-0.07 Lab Interpretation (test code = 03608-3) Abnormal [facility] GLUCOSE (AUTOMATED)2023-11-28 01:32:15* Test Item Value Reference Range Interpretation Comme nts POCT GLU (test code = 2419558656) 154 mg/dL 70-110 H Lab Interpretation (test cod e = 36567-9) Abnormal [facility] GLUCOSE (AUTOMATED)2023-11-27 21:45:44* Test Item Value Reference Range Interpretation Comme nts POCT GLU (test code = 4680788822) 183 mg/dL 70-110 H Lab Interpretation (test cod e = 76307-8) Abnormal [facility] GLUCOSE (AUTOMATED)2023-11-27 16:31:46* Test Item Value Reference Range Interpretation Comme nts POCT GLU (test code = 3050800759) 96 mg/dL 70-110 Lab Interpretation (test cod e = 35381-4) Normal [facility] GLUCOSE (AUTOMATED)2023-11-27 12:42:32* Test Item Value Reference Range Interpretation Comme nts POCT GLU (test code = 7671023280) 88 mg/dL 70-110 Lab Interpretation (test cod e = 92594-5) Normal [facility] RockLavtic Acid Whole Ycwqs6102-91-90 06:44:07* Test Item Value Reference Range Interpretation Comme nts LACTIC ACID (test code = 6859596983) 1.48 mmol/L 0.50-2.20 Lab Interpretation (test cod e = 83199-4) Normal [facility] GLUCOSE (AUTOMATED)2023-11-27 02:37:00* Test Item Value Reference Range Interpretation Comme nts POCT GLU (test code = 6145904874) 167 mg/dL 70-110 H Lab Interpretation (test cod e = 46032-1) Abnormal [facility] RockValproic Acid, Deyz9083-57-70 00:22:04* Test Item Value Reference Range Interpretation Comme nts Valproic Acid, Free (test code = 5453711846) 23.8 ug/mL 4.0-15.0 H LYNDSAY (test code = LYNDSAY) Toxic Range: ? Greater than 15 ug/mL Test developed and characteristics determined by [facility] Laboratory Services. Lab Interpretation (test code = 94259-3) Abnormal [facility] RockFolate2024-05-09 22:17:52* Test Item Value Reference Range Interpretation Comme nts FOLATE SER (test code = 2677803660) 10.9 ng/mL 3.0-20.0 Lab Interpretation (test cod e = 97981-9) Normal [facility] RockVitamin B12, Btprj5957-63-13 22:17:52* Test Item Value Reference Range Interpretation Comme nts VIT B12 (test code = 6521947871) 485 pg/mL 240-930 LYNDSAY (test code = LYNDSAY) Biotin has been reported to cause a positive bias, interpret results relative to patient's use of biotin. Lab Interpretation (test code = 55526-6) Normal [facility] RockCT HEAD WO FWUDBLIA7247-63-01 22:17:11EXAM: CT HEAD WO CONTRAST HISTORY: 53 [...] [facility] RockMagnesium2024-05-09 22:11:53* Test Item Value Reference Range Interpretation Comme nts MAGNESIUM (test code = 4079207397) 2.1 mg/dL 1.7-2.4 Lab Interpretation (test cod e = 69800-8) Normal [facility] RockComp. Metabolic Panel (13289)2023-11-26 22:11:53* Test Item Value Reference Range Interpretation Comme nts NA (test code = 3340011159) 132 mmol/L 135-145 L K (test code = 1354351194) 4.3 mmol/L 3.5-5.0 CL (test code = 2192808279) 94 mmol/L 98-108 L CO2 TOTAL (test code = 3654497516) 34 mmol/L 23-31 H AGAP (test code = 3445329472) 4 2-16 BUN (test code = 6601904750) 24 mg/dL 7-23 H GLUCOSE (test code = 2174137895) 178 mg/dL 70-110 H CREATININE (test code = 2160-0) 0.62 mg/dL 0.50-1.04 TOTAL BILI (test code = 9348030486) 0.6 mg/dL 0.1-1.1 CALCIUM (test code = 6360983302) 8.0 mg/dL 8.6-10.6 L T PROTEIN (test code = 3040536846) 6.1 g/dL 6.3-8.2 L ALBUMIN (test code = 0907602279) 3.5 g/dL 3.5-5.0 ALK PHOS (test code = 6604171985) 212 U/L 34-122 H ALTv (test code = 1742-6) 80 U/L 5-35 H AST(SGOT) (test code = 3491008911) 51 U/L 13-40 H eGFR (test code = 33263-3) 108.0 mL/min/1.73m2 CKD-EPI eGFR (2020). Assuming creatinine has been stable day-to-day for at least three months, the eGFR indicates Category G1 (>= 90 mL/min/1.73 m2) Lab Interpretation (test code = 77066-7) [facility]normal [facility] RockPO[facility]SE (AUTOMATED)2023-11-26 21:19:06* Test Item Value Reference Range Interpretation Comme [facility] POCT GLU (test code = 1768723141) 224 mg/dL 70-110 H Lab Interpretation (test cod e = 70120-0) Abnormal [facility] RockKeppra (Levetiracetam)2023-11-26 19:45:17* Test Item Value Reference Range Interpretation Comme [facility] KEPPRA (test code = 0584965163) 12-46 L LYNDSAY (test code = LYNDSAY) Therapeutic range: 12-46 ?g/mL ? ?Toxic: Not well established.Test developed and characteristics determined by [facility] Laboratory Services. Lab Interpretation (test code = 14103-7) Abnormal [facility] RockLavtic Acid Whole Gvxng0010-45-02 18:11:07* Test Item Value Reference Range Interpretation Comme [facility] LACTIC ACID (test code = 5208741954) 6.19 mmol/L 0.50-2.20 H Lab Interpretation (test cod e = 95109-2) Abnormal [facility] RockPOWI GLUCOSE (AUTOMATED)2023-11-26 17:06:14* Test Item Value Reference Range Interpretation Comme [facility] POCT GLU (test code = 5275747228) 293 mg/dL 70-110 H Lab Interpretation (test cod e = 71679-1) Abnormal [facility] RockCom. Metabolic Panel (21369)2023-11-26 14:21:31* Test Item Value Reference Range Interpretation Comme nts NA (test code = 4948193706) 140 mmol/L 135-145 K (test code = 6571082867) 3.9 mmol/L 3.5-5.0 CL (test code = 0296463884) 93 mmol/L 98-108 L CO2 TOTAL (test code = 8667749312) 38 mmol/L 23-31 H AGAP (test code = 8276409022) 9 2-16 BUN (test code = 0844565080) 25 mg/dL 7-23 H GLUCOSE (test code = 8672535724) 83 mg/dL 70-110 CREATININE (test code = 2160-0) 0.71 mg/dL 0.50-1.04 TOTAL BILI (test code = 5290786355) 0.7 mg/dL 0.1-1.1 CALCIUM (test code = 9265860982) 8.7 mg/dL 8.6-10.6 T PROTEIN (test code = 0885762950) 6.6 g/dL 6.3-8.2 ALBUMIN (test code = 9076627236) 3.6 g/dL 3.5-5.0 ALK PHOS (test code = 6730130324) 220 U/L 34-122 H ALTv (test code = 1742-6) 95 U/L 5-35 H AST(SGOT) (test code = 8598221496) 47 U/L 13-40 H eGFR (test code = 76241-8) 103.1 mL/min/1.73m2 CKD-EPI eGFR (2020). Assuming creatinine has been stable day-to-day for at least three months, the eGFR indicates Category G1 (>= 90 mL/min/1.73 m2) Lab Interpretation (test code = 61184-3) Abnormal [facility] RockMagnesium2024-05-09 14:03:47* Test Item Value Reference Range Interpretation Comme nts MAGNESIUM (test code = 2103695096) 2.3 mg/dL 1.7-2.4 Lab Interpretation (test cod e = 18567-1) Normal [facility] RockCb with Oyaz8903-87-43 13:57:47* Test Item Value Reference Range Interpretation [...] g/dL 31.6-35.1 L RDW-SD (test code = 35631-4) 67.3 fL 39.0-49.9 H RDW-CV (test code = 788-0) 22.5 % 12.0-15.5 H PLT (test code = 777-3) 285 166-358 MPV (test code = 65242-4) 9.2 fL 9.5-12.9 L NRBC/100 WBC (test code = 2305376000) 0.3 0.0-10.0 NRBC x10^3 (test code = 8896478630) 0.03 See_Comment [Automated messa ge] The system which generated this result transmitted reference range: 10*3/?L. The reference range was not used to interpret this result as normal/abnormal. GRAN MAT (NEUT) % (test code = 770-8) 70.5 % IMM GRAN % (test code = 8777741739) 0.80 % LYMPH % (test code = 736-9) 21.7 % MONO % (test code = 5905-5) 6.4 % EOS % (test code = 713-8) 0.5 % BASO % (test code = 706-2) 0.1 % GRAN MAT x10^3(ANC) (test code = 4208325997) 7.54 10*3/uL 1.88-7.09 H IMM GRAN x10^3 (test code = 8810283752) 0.09 10*3/uL 0.00-0.06 H LYMPH x10^3 (test code = 731-0) 2.32 10*3/uL 1.32-3.29 MONO x10^3 (test code = 742-7) 0.69 10*3/uL 0.33-0.92 EOS x10^3 (test code = 711-2) 0.05 10*3/uL 0.03-0.39 BASO x10^3 (test code = 704-7) 0.01-0.07 Lab Interpretation (test code = 70525-7) Abnormal [facility] RockLavtic Acid Whole Kuhxr6406-64-47 10:06:23* Test Item Value Reference Range Interpretation Comme [facility] LACTIC ACID (test code = 9035722806) 2.41 mmol/L 0.50-2.20 H Lab Interpretation (test cod e = 21191-0) Abnormal [facility] RockPOWI GLUCOSE (AUTOMATED)2023-11-26 02:14:06* Test Item Value Reference Range Interpretation Comme [facility] POCT GLU (test code = 5519811916) 288 mg/dL 70-110 H Lab Interpretation (test cod e = 27257-7) Abnormal [facility] RockLactic Acid Whole Euyok5583-38-52 00:56:52* Test Item Value Reference Range Interpretation Comme [facility] LACTIC ACID (test code = 7954123112) 2.93 mmol/L 0.50-2.20 H Lab Interpretation (test cod e = 11126-3) Abnormal [facility] RockElectroencephalogram (EEG) - Duration of test: Continuous EEG Monitoring (LTM); Release to patient:Nhefcxqne1914-14-86 00:00:00 * Test Item Value Reference Range Interpretation Comme nts LYNDSAY (test code = LYNDSAY) LONG-TERM EEG MONITORING #1: 11/26/2023, 15:40 - 16: 31 Name: Heather TurnerN: [id number] Age:53 year oldSex: female History from chart review: This is a 53 year old female with a PMH significant for HFrEF (~35% 05/2023), HTN, Smoker, COPD (on intermittent home O2), chronic low back pain, seizure disorder, C3-C4 ACDF and L3-L4 laminectomies (06/01/23) c/b chronic low back pain 2/2 lumbar spinal stenosis, and depression presenting from [facility] ED due to SOB. Level [...] segment. Laura Ramirez MD, PhD, FAESData: 11/26/2023 LONGTERM EEG MONITORING SEGMENT #2: 11/26/23, 16:31:09-19:29:41 In [...] Interpreted by Dewey Neal MD on 11/26/23 -----LONGTERM EEG MONITORING SEGMENT #3: 11/26/23, 19:29:41 to [...] on 11/27/23 Lab Interpretation (test code = 77511-8) Abnormal [facility] RockCom. Metabolic Panel (49445)2023-11-25 21:24:39* Test Item Value Reference Range Interpretation Comme nts NA (test code = 0092952474) 134 mmol/L 135-145 L K (test code = 1067042678) 4.3 mmol/L 3.5-5.0 CL (test code = 9134150311) 89 mmol/L 98-108 L CO2 TOTAL (test code = 9024862670) 37 mmol/L 23-31 H AGAP (test code = 4972598554) 8 2-16 BUN (test code = 0353138357) 24 mg/dL 7-23 H GLUCOSE (test code = 3594330343) 177 mg/dL 70-110 H CREATININE (test code = 2160-0) 0.69 mg/dL 0.50-1.04 TOTAL BILI (test code = 9818145791) 0.9 mg/dL 0.1-1.1 CALCIUM (test code = 3504028410) 8.6 mg/dL 8.6-10.6 T PROTEIN (test code = 2054236251) 7.3 g/dL 6.3-8.2 ALBUMIN (test code = 8233162378) 4.1 g/dL 3.5-5.0 ALK PHOS (test code = 9690338842) 263 U/L 34-122 H ALTv (test code = 1742-6) 116 U/L 5-35 H AST(SGOT) (test code = 7538110674) 36 U/L 13-40 eGFR (test code = 21394-8) 105.2 mL/min/1.73m2 CKD-EPI eGFR (2020). Assuming creatinine has been stable day-to-day for at least three months, the eGFR indicates Category G1 (>= 90 mL/min/1.73 m2) Lab Interpretation (test code = 78575-0) Abnormal [facility] RockMagnesium2024-05-08 21:24:39* Test Item Value Reference Range Interpretation Comme nts MAGNESIUM (test code = 0701427548) 2.1 mg/dL 1.7-2.4 Lab Interpretation (test cod e = 08254-4) Normal [facility] RockLactic Acid Whole Utnay5906-81-21 21:10:26* Test Item Value Reference Range Interpretation Comme nts LACTIC ACID (test code = 9423849421) 4.07 mmol/L 0.50-2.20 H Lab Interpretation (test cod e = 06930-2) Abnormal [facility] GLUCOSE (AUTOMATED)2023-11-25 21:01:04* Test Item Value Reference Range Interpretation Comme nts POCT GLU (test code = 0067504388) 173 mg/dL 70-110 H Lab Interpretation (test cod e = 19638-9) Abnormal [facility] GLUCOSE (AUTOMATED)2023-11-25 16:59:00* Test Item Value Reference Range Interpretation Comme nts POCT GLU (test code = 6428813380) 220 mg/dL 70-110 H Lab Interpretation (test cod e = 50433-0) Abnormal [facility] GLUCOSE (AUTOMATED)2023-11-25 13:06:20* Test Item Value Reference Range Interpretation Comme nts POCT GLU (test code = 8807713464) 92 mg/dL 70-110 Lab Interpretation (test cod e = 43702-9) Normal [facility] Icbey6421-34-39 09:28:51* Test Item Value Reference Range Interpretation Comme nts LACTIC ACID (test code = 1469419706) 1.66 mmol/L 0.50-2.20 Lab Interpretation (test cod e = 95626-3) Normal [facility] Whole Ctvpo9485-63-80 04:58:57* Test Item Value Reference Range Interpretation Comme nts LACTIC ACID (test code = 5322010265) 2.00 mmol/L 0.50-2.20 Lab Interpretation (test cod e = 86895-2) Normal [facility] GLUCOSE (AUTOMATED)2023-11-25 03:05:13* Test Item Value Reference Range Interpretation Comme nts POCT GLU (test code = 7738605800) 189 mg/dL 70-110 H Lab Interpretation (test cod e = 51192-4) Abnormal [facility] ABDOMEN PELVIS W WRVSUZVO5911-91-29 00:18:09CT ABDOMEN PELVIS W CONTRAST 11/24/2023 5:07 [...] edema.[facility] RockLavtic Acid Whole Rwfep1026-12-76 21:31:49* Test Item Value Reference Range Interpretation Comme [facility] LACTIC ACID (test code = 5390907108) 4.54 mmol/L 0.50-2.20 H Lab Interpretation (test cod e = 69579-4) Abnormal [facility] GLUCOSE (AUTOMATED)2023-11-24 21:31:39* Test Item Value Reference Range Interpretation Comme [facility] POCT GLU (test code = 7438023302) 198 mg/dL 70-110 H Lab Interpretation (test cod e = 35807-5) Abnormal [facility] GLUCOSE (AUTOMATED)2023-11-24 17:53:57* Test Item Value Reference Range Interpretation Comme nts POCT GLU (test code = 0473393700) 226 mg/dL 70-110 H Lab Interpretation (test cod e = 21238-9) Abnormal [facility] GLUCOSE (AUTOMATED)2023-11-24 17:53:57* Test Item Value Reference Range Interpretation Comme nts POCT GLU (test code = 5890517127) 226 mg/dL 70-110 H Lab Interpretation (test cod e = 75814-3) Abnormal [facility] GLUCOSE (AUTOMATED)2023-11-24 17:53:57* Test Item Value Reference Range Interpretation Comme nts POCT GLU (test code = 8547756940) 226 mg/dL 70-110 H Lab Interpretation (test cod e = 80857-1) Abnormal [facility] RockLactic Acid Whole Gvhhq0543-63-29 15:48:27* Test Item Value Reference Range Interpretation Comme nts LACTIC ACID (test code = 3760265427) 4.43 mmol/L 0.50-2.20 H Lab Interpretation (test cod e = 12372-2) [facility] Clhcs7390-23-58 15:48:27* Test Item Value Reference Range Interpretation Comme nts LACTIC ACID (test code = 3296909658) 4.43 mmol/L 0.50-2.20 H Lab Interpretation (test cod e = 63140-4) Abnormal [facility] RockLactic Acid Whole Lpaem2939-74-69 15:48:27* Test Item Value Reference Range Interpretation Comme nts LACTIC ACID (test code = 4898775443) 4.43 mmol/L 0.50-2.20 H Lab Interpretation (test cod e = 78090-0) Abnormal [facility] RockCardiovascular Hvnbriquugxjcrs2051-51-56 14:28:29? ?RHC/Coronary Angiography Date of Service: 11/23/2023 ?3:18 PM Indication/Diagnosis: heart failure Consent source: self Consent type: indications/complications discussed with patient/legal guardian; written consent obtained Time out completed: yes Aseptic technique: Chlorprep Local Anesthesia: 1% lidocaine without epinephrine Sedation: fentanyl 50 mcg, Versed 2 mg Access site: right radial artery, RIJ Heber 4.0 5fr8 Fr IJ sheathSwan Rosalba ? [...] was present for the entire procedure. KEVIN VenturaNORTHE[facility] Post-Procedure Sedation AddendumImmediately prior [...] procedure.Findings discussed with the primary team (Dr. Fry). Coronary angiography/RHC revealing:- Patent coronary arteries withnon [...] sided failure. Nataliia Ivy professor.Division of cardiovascular medicineK[facility] ([facility]OM[facility])2023-11-24 12:34:31* Test Item Value Reference Range Interpretation Comme nts POCT GLU (test code = 5196780436) 114 mg/dL 70-110 H Lab Interpretation (test cod e = 80156-7) Abnormal [facility] GLUCOSE (AUTOMATED)2023-11-24 12:34:31* Test Item Value Reference Range Interpretation Comme nts POCT GLU (test code = 0988414248) 114 mg/dL 70-110 H Lab Interpretation (test cod e = 40746-8) Abnormal [facility] GLUCOSE (AUTOMATED)2023-11-24 12:34:31* Test Item Value Reference Range Interpretation Comme nts POCT GLU (test code = 6953689519) 114 mg/dL 70-110 H Lab Interpretation (test cod e = 37743-5) Abnormal [facility] RockMagnesium2024-05-07 11:10:57* Test Item Value Reference Range Interpretation Comme nts MAGNESIUM (test code = 1097684296) 2.2 mg/dL 1.7-2.4 Lab Interpretation (test cod e = 37246-1) Normal [facility]. Metabolic Panel (80357)2023-11-24 11:10:57* Test Item Value Reference Range Interpretation Comme nts NA (test code = 9389308292) 141 mmol/L 135-145 K (test code = 6574011479) 4.1 mmol/L 3.5-5.0 CL (test code = 3594121356) 97 mmol/L 98-108 L CO2 TOTAL (test code = 2596502448) 36 mmol/L 23-31 H AGAP (test code = 0329415612) 8 2-16 BUN (test code = 9963553946) 20 mg/dL 7-23 GLUCOSE (test code = 3432365220) 125 mg/dL 70-110 H CREATININE (test code = 2160-0) 0.66 mg/dL 0.50-1.04 TOTAL BILI (test code = 4686264635) 0.7 mg/dL 0.1-1.1 CALCIUM (test code = 7006457236) 8.4 mg/dL 8.6-10.6 L T PROTEIN (test code = 2525525380) 6.5 g/dL 6.3-8.2 ALBUMIN (test code = 3798549524) 3.7 g/dL 3.5-5.0 ALK PHOS (test code = 5837974138) 266 U/L 34-122 H ALTv (test code = 1742-6) 149 U/L 5-35 H AST(SGOT) (test code = 7458968465) 35 U/L 13-40 eGFR (test code = 39303-2) 106.4 mL/min/1.73m2 CKD-EPI eGFR (2020). Assuming creatinine has been stable day-to-day for at least three months, the eGFR indicates Category G1 (>= 90 mL/min/1.73 m2) Lab Interpretation (test code = 38952-0) Abnormal [facility] RockMagnesium2024-05-07 11:10:57* Test Item Value Reference Range Interpretation Comme nts MAGNESIUM (test code = 8546805188) 2.2 mg/dL 1.7-2.4 Lab Interpretation (test cod e = 76099-8) Normal [facility] RockComp. Metabolic Panel (35418)2023-11-24 11:10:57* Test Item Value Reference Range Interpretation Comme nts NA (test code = 0876850703) 141 mmol/L 135-145 K (test code = 1175856906) 4.1 mmol/L 3.5-5.0 CL (test code = 1846876147) 97 mmol/L 98-108 L CO2 TOTAL (test code = 4123082693) 36 mmol/L 23-31 H AGAP (test code = 0572516685) 8 2-16 BUN (test code = 1361185494) 20 mg/dL 7-23 GLUCOSE (test code = 8224704713) 125 mg/dL 70-110 H CREATININE (test code = 2160-0) 0.66 mg/dL 0.50-1.04 TOTAL BILI (test code = 7861098507) 0.7 mg/dL 0.1-1.1 CALCIUM (test code = 1914966094) 8.4 mg/dL 8.6-10.6 L T PROTEIN (test code = 7179730868) 6.5 g/dL 6.3-8.2 ALBUMIN (test code = 9295878823) 3.7 g/dL 3.5-5.0 ALK PHOS (test code = 1194003330) 266 U/L 34-122 H ALTv (test code = 1742-6) 149 U/L 5-35 H AST(SGOT) (test code = 2848965603) 35 U/L 13-40 eGFR (test code = 84032-2) 106.4 mL/min/1.73m2 CKD-EPI eGFR (2020). Assuming creatinine has been stable day-to-day for at least three months, the eGFR indicates Category G1 (>= 90 mL/min/1.73 m2) Lab Interpretation (test code = 04990-8) [facility]:10:57* Test Item Value Reference Range Interpretation Comme nts MAGNESIUM (test code = 5366343115) 2.2 mg/dL 1.7-2.4 Lab Interpretation (test cod e = 94648-1) Normal [facility]. Metabolic Panel (22911)2023-11-24 11:10:57* Test Item Value Reference Range Interpretation Comme nts NA (test code = 9560097999) 141 mmol/L 135-145 K (test code = 9786407088) 4.1 mmol/L 3.5-5.0 CL (test code = 9104147045) 97 mmol/L 98-108 L CO2 TOTAL (test code = 0510754328) 36 mmol/L 23-31 H AGAP (test code = 2092203698) 8 2-16 BUN (test code = 6170621273) 20 mg/dL 7-23 GLUCOSE (test code = 3327562550) 125 mg/dL 70-110 H CREATININE (test code = 2160-0) 0.66 mg/dL 0.50-1.04 TOTAL BILI (test code = 0359978266) 0.7 mg/dL 0.1-1.1 CALCIUM (test code = 7456066116) 8.4 mg/dL 8.6-10.6 L T PROTEIN (test code = 5530451769) 6.5 g/dL 6.3-8.2 ALBUMIN (test code = 5188822891) 3.7 g/dL 3.5-5.0 ALK PHOS (test code = 2233115579) 266 U/L 34-122 H ALTv (test code = 1742-6) 149 U/L 5-35 H AST(SGOT) (test code = 5060489363) 35 U/L 13-40 eGFR (test code = 61902-2) 106.4 mL/min/1.73m2 CKD-EPI eGFR (2020). Assuming creatinine has been stable day-to-day for at least three months, the eGFR indicates Category G1 (>= 90 mL/min/1.73 m2) Lab Interpretation (test code = 54222-7) [facility] [id number] 11:07:59* Test Item Value Reference Range Interpretation Comme nts LACTIC ACID (test code = 2304855688) 3.41 mmol/L 0.50-2.20 H Lab Interpretation (test cod e = 84437-2) [facility] Bzuxzb5182-27-22 11:07:59* Test Item Value Reference Range Interpretation Comme nts LACTIC ACID (test code = 3180268314) 3.41 mmol/L 0.50-2.20 H Lab Interpretation (test cod e = 21023-0) [facility] [id number] 11:07:59* Test Item Value Reference Range Interpretation Comme nts LACTIC ACID (test code = 1479374406) 3.41 mmol/L 0.50-2.20 H Lab Interpretation (test cod e = 71069-6) Abnormal [facility] with Ledi0498-77-28 10:28:34* Test Item Value Reference Range Interpretation [...] g/dL 31.6-35.1 L RDW-SD (test code = 06898-8) 67.5 fL 39.0-49.9 H RDW-CV (test code = 788-0) 22.5 % 12.0-15.5 H PLT (test code = 777-3) 245 166-358 MPV (test code = 12031-7) 9.5 fL 9.5-12.9 NRBC/100 WBC (test code = 7451584497) 1.2 0.0-10.0 NRBC x10^3 (test code = 3453493030) 0.11 See_Comment [Automated messa ge] The system which generated this result transmitted reference range: 10*3/?L. The reference range was not used to interpret this result as normal/abnormal. GRAN MAT (NEUT) % (test code = 770-8) 84.8 % IMM GRAN % (test code = 4887826383) 0.80 % LYMPH % (test code = 736-9) 7.3 % MONO % (test code = 5905-5) 7.0 % EOS % (test code = 713-8) 0.0 % BASO % (test code = 706-2) 0.1 % GRAN MAT x10^3(ANC) (test code = 7642331721) 8.03 10*3/uL 1.88-7.09 H IMM GRAN x10^3 (test code = 2184657122) 0.08 10*3/uL 0.00-0.06 H LYMPH x10^3 (test code = 731-0) 0.69 10*3/uL 1.32-3.29 L MONO x10^3 (test code = 742-7) 0.66 10*3/uL 0.33-0.92 EOS x10^3 (test code = 711-2) 0.03-0.39 L BASO x10^3 (test code = 704-7) 0.01-0.07 Lab Interpretation (test code = 03117-4) Abnormal [facility] with Xqet1041-54-68 10:28:34* Test Item Value Reference Range Interpretation [...] g/dL 31.6-35.1 L RDW-SD (test code = 74397-3) 67.5 fL 39.0-49.9 H RDW-CV (test code = 788-0) 22.5 % 12.0-15.5 H PLT (test code = 777-3) 245 166-358 MPV (test code = 27535-8) 9.5 fL 9.5-12.9 NRBC/100 WBC (test code = 8573382879) 1.2 0.0-10.0 NRBC x10^3 (test code = 9292030224) 0.11 See_Comment [Automated messa ge] The system which generated this result transmitted reference range: 10*3/?L. The reference range was not used to interpret this result as normal/abnormal. GRAN MAT (NEUT) % (test code = 770-8) 84.8 % IMM GRAN % (test code = 1466328436) 0.80 % LYMPH % (test code = 736-9) 7.3 % MONO % (test code = 5905-5) 7.0 % EOS % (test code = 713-8) 0.0 % BASO % (test code = 706-2) 0.1 % GRAN MAT x10^3(ANC) (test code = 5731418684) 8.03 10*3/uL 1.88-7.09 H IMM GRAN x10^3 (test code = 9076248405) 0.08 10*3/uL 0.00-0.06 H LYMPH x10^3 (test code = 731-0) 0.69 10*3/uL 1.32-3.29 L MONO x10^3 (test code = 742-7) 0.66 10*3/uL 0.33-0.92 EOS x10^3 (test code = 711-2) 0.03-0.39 L BASO x10^3 (test code = 704-7) 0.01-0.07 Lab Interpretation (test code = 59765-9) Abnormal [facility] with Nznx9397-54-19 10:28:34* Test Item Value Reference Range Interpretation [...] g/dL 31.6-35.1 L RDW-SD (test code = 13037-4) 67.5 fL 39.0-49.9 H RDW-CV (test code = 788-0) 22.5 % 12.0-15.5 H PLT (test code = 777-3) 245 166-358 MPV (test code = 31868-0) 9.5 fL 9.5-12.9 NRBC/100 WBC (test code = 1736233362) 1.2 0.0-10.0 NRBC x10^3 (test code = 1936428014) 0.11 See_Comment [Automated messa ge] The system which generated this result transmitted reference range: 10*3/?L. The reference range was not used to interpret this result as normal/abnormal. GRAN MAT (NEUT) % (test code = 770-8) 84.8 % IMM GRAN % (test code = 7131512399) 0.80 % LYMPH % (test code = 736-9) 7.3 % MONO % (test code = 5905-5) 7.0 % EOS % (test code = 713-8) 0.0 % BASO % (test code = 706-2) 0.1 % GRAN MAT x10^3(ANC) (test code = 1810595901) 8.03 10*3/uL 1.88-7.09 H IMM GRAN x10^3 (test code = 7138419661) 0.08 10*3/uL 0.00-0.06 H LYMPH x10^3 (test code = 731-0) 0.69 10*3/uL 1.32-3.29 L MONO x10^3 (test code = 742-7) 0.66 10*3/uL 0.33-0.92 EOS x10^3 (test code = 711-2) 0.03-0.39 L BASO x10^3 (test code = 704-7) 0.01-0.07 Lab Interpretation (test code = 97407-3) Abnormal [facility] (for use with Heparin Infusion)2023-11-24 06:40:52* Test Item Value Reference Range Interpretation Comme nts APTT Patient (test code = 3173-2) Lab Interpretation (test cod e = 37222-5) Normal [facility] (for use with Heparin Infusion)2023-11-24 06:40:52* Test Item Value Reference Range Interpretation Comme nts APTT Patient (test code = 3173-2) Lab Interpretation (test cod e = 39804-9) Normal [facility] (for use with Heparin Infusion)2023-11-24 06:40:52* Test Item Value Reference Range Interpretation Comme nts APTT Patient (test code = 3173-2) 26 26-36 Lab Interpretation (test cod e = 96359-5) Normal [facility] GLUCOSE (AUTOMATED)2023-11-24 03:18:58* Test Item Value Reference Range Interpretation Comme nts POCT GLU (test code = 7565010938) 263 mg/dL 70-110 H Lab Interpretation (test cod e = 90617-9) Abnormal [facility] GLUCOSE (AUTOMATED)2023-11-24 03:18:58* Test Item Value Reference Range Interpretation Comme nts POCT GLU (test code = 0748054454) 263 mg/dL 70-110 H Lab Interpretation (test cod e = 79910-4) Abnormal [facility] GLUCOSE (AUTOMATED)2023-11-24 03:18:58* Test Item Value Reference Range Interpretation Comme nts POCT GLU (test code = 2913081947) 263 mg/dL 70-110 H Lab Interpretation (test cod e = 86581-8) Abnormal [facility] GLUCOSE (AUTOMATED)2023-11-23 21:29:57* Test Item Value Reference Range Interpretation Comme nts POCT GLU (test code = 7139807425) 137 mg/dL 70-110 H Lab Interpretation (test cod e = 61009-0) Abnormal [facility] GLUCOSE (AUTOMATED)2023-11-23 21:29:57* Test Item Value Reference Range Interpretation Comme nts POCT GLU (test code = 5321721451) 137 mg/dL 70-110 H Lab Interpretation (test cod e = 27864-0) Abnormal [facility] GLUCOSE (AUTOMATED)2023-11-23 21:29:57* Test Item Value Reference Range Interpretation Comme nts POCT GLU (test code = 9975021150) 137 mg/dL 70-110 H Lab Interpretation (test cod e = 09679-9) [facility] (ALB,T.PRO,BILI T,BU/BC,ALT,AST,ALK PHOS)2023-11-23 17:45:02* Test Item Value Reference Range Interpretation Comme nts TOTAL BILI (test code = 3548657169) 0.7 mg/dL 0.1-1.1 BILI UNCON (test code = 9080722553) 0.1 mg/dL 0.1-1.1 BILI CONJ (test code = 0974202947) 0.0 mg/dL 0.0-0.3 T PROTEIN (test code = 9761532684) 6.2 g/dL 6.3-8.2 L ALBUMIN (test code = 4908457066) 3.5 g/dL 3.5-5.0 ALK PHOS (test code = 6246537427) 274 U/L 34-122 H ALTv (test code = 1742-6) 176 U/L 5-35 H AST(SGOT) (test code = 6118202323) 40 U/L 13-40 Lab Interpretation (test cod e = 68419-2) [facility] (77[facility] (ALB,T.PRO,BILI T,BU/BC,ALT,AST,ALK PHOS)2023-11-23 17:45:02* Test Item Value Reference Range Interpretation Comme nts TOTAL BILI (test code = 3298565014) 0.7 mg/dL 0.1-1.1 BILI UNCON (test code = 2834598899) 0.1 mg/dL 0.1-1.1 BILI CONJ (test code = 8746240828) 0.0 mg/dL 0.0-0.3 T PROTEIN (test code = 7356271519) 6.2 g/dL 6.3-8.2 L ALBUMIN (test code = 7524631431) 3.5 g/dL 3.5-5.0 ALK PHOS (test code = 2026867800) 274 U/L 34-122 H ALTv (test code = 1742-6) 176 U/L 5-35 H AST(SGOT) (test code = 9287176034) 40 U/L 13-40 Lab Interpretation (test cod e = 60138-3) [facility] (69[facility] (ALB,T.PRO,BILI T,BU/BC,ALT,AST,ALK PHOS)2023-11-23 17:45:02* Test Item Value Reference Range Interpretation Comme nts TOTAL BILI (test code = 4089135480) 0.7 mg/dL 0.1-1.1 BILI UNCON (test code = 0893283025) 0.1 mg/dL 0.1-1.1 BILI CONJ (test code = 9663970075) 0.0 mg/dL 0.0-0.3 T PROTEIN (test code = 4085173428) 6.2 g/dL 6.3-8.2 L ALBUMIN (test code = 7141747383) 3.5 g/dL 3.5-5.0 ALK PHOS (test code = 1734472392) 274 U/L 34-122 H ALTv (test code = 1742-6) 176 U/L 5-35 H AST(SGOT) (test code = 5330770540) 40 U/L 13-40 Lab Interpretation (test cod e = 45391-8) Abnormal [facility] GLUCOSE (AUTOMATED)2023-11-23 17:19:25* Test Item Value Reference Range Interpretation Comme nts POCT GLU (test code = 0614423150) 137 mg/dL 70-110 H Lab Interpretation (test cod e = 35320-4) Abnormal [facility] GLUCOSE (AUTOMATED)2023-11-23 17:19:25* Test Item Value Reference Range Interpretation Comme nts POCT GLU (test code = 2401568389) 137 mg/dL 70-110 H Lab Interpretation (test cod e = 66390-4) Abnormal [facility] GLUCOSE (AUTOMATED)2023-11-23 17:19:25* Test Item Value Reference Range Interpretation Comme nts POCT GLU (test code = 8939726370) 137 mg/dL 70-110 H Lab Interpretation (test cod e = 47777-9) Abnormal [facility] GLUCOSE (AUTOMATED)2023-11-23 16:51:25* Test Item Value Reference Range Interpretation Comme nts POCT GLU (test code = 9602117258) 145 mg/dL 70-110 H Lab Interpretation (test cod e = 57934-4) Abnormal [facility] GLUCOSE (AUTOMATED)2023-11-23 16:51:25* Test Item Value Reference Range Interpretation Comme nts POCT GLU (test code = 2272724457) 145 mg/dL 70-110 H Lab Interpretation (test cod e = 76934-0) Abnormal [facility] GLUCOSE (AUTOMATED)2023-11-23 16:51:25* Test Item Value Reference Range Interpretation Comme nts POCT GLU (test code = 0881696097) 145 mg/dL 70-110 H Lab Interpretation (test cod e = 07998-0) [facility]2023-11-23 15:36:08* Test Item Value Reference Range Interpretation Comme nts APTT Patient (test code = 3173-2) 44 26-36 H Lab Interpretation (test cod e = 95989-3) [facility] use with [facility] Infusion[facility]2023-11-23 15:36:08* Test Item Value Reference Range Interpretation Comme nts APTT Patient (test code = 3173-2) 44 26-36 H Lab Interpretation (test cod e = 53047-7) [facility] use with [facility] Infusion[facility]2023-11-23 15:36:08* Test Item Value Reference Range Interpretation Comme nts APTT Patient (test code = 3173-2) 44 26-36 H Lab Interpretation (test cod e = 69785-9) [facility] Whole Cuukd8037-63-27 15:21:35* Test Item Value Reference Range Interpretation Comme nts LACTIC ACID (test code = 6341325628) 4.80 mmol/L 0.50-2.20 H Lab Interpretation (test cod e = 36169-6) [facility] Jwmjk3574-88-13 15:21:35* Test Item Value Reference Range Interpretation Comme nts LACTIC ACID (test code = 9600199828) 4.80 mmol/L 0.50-2.20 H Lab Interpretation (test cod e = 98698-1) [facility]normal [facility] Whole Epnwi7793-44-48 15:21:35* Test Item Value Reference Range Interpretation Comme nts LACTIC ACID (test code = 5421314778) 4.80 mmol/L 0.50-2.20 H Lab Interpretation (test cod e = 02227-3) Abnormal [facility] GLUCOSE (AUTOMATED)2023-11-23 12:49:15* Test Item Value Reference Range Interpretation Comme nts POCT GLU (test code = 0974259580) 162 mg/dL 70-110 H Lab Interpretation (test cod e = 88293-7) Abnormal [facility] GLUCOSE (AUTOMATED)2023-11-23 12:49:15* Test Item Value Reference Range Interpretation Comme nts POCT GLU (test code = 2479021897) 162 mg/dL 70-110 H Lab Interpretation (test cod e = 81376-2) Abnormal [facility] GLUCOSE (AUTOMATED)2023-11-23 12:49:15* Test Item Value Reference Range Interpretation Comme nts POCT GLU (test code = 9586894313) 162 mg/dL 70-110 H Lab Interpretation (test cod e = 86693-4) Abnormal [facility]2024-05-06 08:44:42* Test Item Value Reference Range Interpretation Comme nts MAGNESIUM (test code = 9554473686) 1.9 mg/dL 1.7-2.4 Lab Interpretation (test cod e = 51789-3) Normal [facility] Metabolic Panel (NA, K, CL, CO2, GLUCOSE, BUN, CREATININE, CA)2023-11-23 08:44:42* Test Item Value Reference Range Interpretation Comme nts NA (test code = 1143478308) 136 mmol/L 135-145 K (test code = 5586054981) 3.7 mmol/L 3.5-5.0 CL (test code = 5518235129) 99 mmol/L 98-108 CO2 TOTAL (test code = 5407058191) 31 mmol/L 23-31 AGAP (test code = 0288131657) 6 2-16 BUN (test code = 6978108616) 20 mg/dL 7-23 GLUCOSE (test code = 5344897715) 184 mg/dL 70-110 H CREATININE (test code = 2160-0) 0.66 mg/dL 0.50-1.04 CALCIUM (test code = 3114481501) 7.9 mg/dL 8.6-10.6 L eGFR (test code = 49182-9) 106.4 mL/min/1.73m2 CKD-EPI eGFR (2020). Assuming creatinine has been stable day-to-day for at least three months, the eGFR indicates Category G1 (>= 90 mL/min/1.73 m2) Lab Interpretation (test code = 91009-3) Abnormal [facility]2024-05-06 08:44:42* Test Item Value Reference Range Interpretation Comme nts MAGNESIUM (test code = 4285203355) 1.9 mg/dL 1.7-2.4 Lab Interpretation (test cod e = 32147-8) Normal [facility] Metabolic Panel (NA, K, CL, CO2, GLUCOSE, BUN, CREATININE, CA)2023-11-23 08:44:42* Test Item Value Reference Range Interpretation Comme nts NA (test code = 2776650023) 136 mmol/L 135-145 K (test code = 2375507104) 3.7 mmol/L 3.5-5.0 CL (test code = 7516013565) 99 mmol/L 98-108 CO2 TOTAL (test code = 3303466430) 31 mmol/L 23-31 AGAP (test code = 4777679273) 6 2-16 BUN (test code = 8774130934) 20 mg/dL 7-23 GLUCOSE (test code = 9014454698) 184 mg/dL 70-110 H CREATININE (test code = 2160-0) 0.66 mg/dL 0.50-1.04 CALCIUM (test code = 2836862164) 7.9 mg/dL 8.6-10.6 L eGFR (test code = 96773-8) 106.4 mL/min/1.73m2 CKD-EPI eGFR (2020). Assuming creatinine has been stable day-to-day for at least three months, the eGFR indicates Category G1 (>= 90 mL/min/1.73 m2) Lab Interpretation (test code = 71313-8) [facility] 08:44:42* Test Item Value Reference Range Interpretation Comme nts MAGNESIUM (test code = 7337575018) 1.9 mg/dL 1.7-2.4 Lab Interpretation (test cod e = 17211-1) Normal [facility] Metabolic Panel (NA, K, CL, CO2, GLUCOSE, BUN, CREATININE, CA)2023-11-23 08:44:42* Test Item Value Reference Range Interpretation Comme nts NA (test code = 3447314866) 136 mmol/L 135-145 K (test code = 0020332912) 3.7 mmol/L 3.5-5.0 CL (test code = 6495685455) 99 mmol/L 98-108 CO2 TOTAL (test code = 3337314121) 31 mmol/L 23-31 AGAP (test code = 7596187268) 6 2-16 BUN (test code = 1188000671) 20 mg/dL 7-23 GLUCOSE (test code = 9819456306) 184 mg/dL 70-110 H CREATININE (test code = 2160-0) 0.66 mg/dL 0.50-1.04 CALCIUM (test code = 0426897400) 7.9 mg/dL 8.6-10.6 L eGFR (test code = 38697-0) 106.4 mL/min/1.73m2 CKD-EPI eGFR (2020). Assuming creatinine has been stable day-to-day for at least three months, the eGFR indicates Category G1 (>= 90 mL/min/1.73 m2) Lab Interpretation (test code = 08234-9) [facility] use [facility] Infusion[facility]2023-11-23 08:29:39* Test Item Value Reference Range Interpretation Comme [facility] APTT Patient (test code = 3173-2) 49 26-36 H Lab Interpretation (test cod e = 91318-2) [facility] use with [facility]arin Infusion[facility]2023-11-23 08:29:39* Test Item Value Reference Range Interpretation Comme [facility] APTT Patient (test code = 3173-2) 49 26-36 H Lab Interpretation (test cod e = 62083-7) [facility]for use with [facility]arin Infusion[facility]2023-11-23 08:29:39* Test Item Value Reference Range Interpretation Comme [facility] APTT Patient (test code = 3173-2) 49 26-36 H Lab Interpretation (test cod e = 43103-6) Abnormal [facility] with Qjkz2629-30-73 08:24:03* Test Item Value Reference Range Interpretation Comme [facility] WBC (test code = 6690-2) 7.18 [...] g/dL 31.6-35.1 L RDW-SD (test code = 33256-1) 66.0 fL 39.0-49.9 H RDW-CV (test code = 788-0) 22.5 % 12.0-15.5 H PLT (test code = 777-3) 204 166-358 MPV (test code = 66835-4) 9.8 fL 9.5-12.9 NRBC/100 WBC (test code = 2849360731) 2.4 0.0-10.0 NRBC x10^3 (test code = 6522817503) 0.17 See_Comment [Automated messa ge] The system which generated this result transmitted reference range: 10*3/?L. The reference range was not used to interpret this result as normal/abnormal. GRAN MAT (NEUT) % (test code = 770-8) 80.3 % IMM GRAN % (test code = 2070061413) 1.70 % LYMPH % (test code = 736-9) 9.5 % MONO % (test code = 5905-5) 8.5 % EOS % (test code = 713-8) 0.0 % BASO % (test code = 706-2) 0.0 % GRAN MAT x10^3(ANC) (test code = 7719579790) 5.77 10*3/uL 1.88-7.09 IMM GRAN x10^3 (test code = 2092672416) 0.12 10*3/uL 0.00-0.06 H LYMPH x10^3 (test code = 731-0) 0.68 10*3/uL 1.32-3.29 L MONO x10^3 (test code = 742-7) 0.61 10*3/uL 0.33-0.92 EOS x10^3 (test code = 711-2) 0.03-0.39 L BASO x10^3 (test code = 704-7) 0.01-0.07 Lab Interpretation (test code = 77351-7) Abnormal [facility] with Fkzv5049-65-50 08:24:03* Test Item Value Reference Range Interpretation [...] g/dL 31.6-35.1 L RDW-SD (test code = 19501-1) 66.0 fL 39.0-49.9 H RDW-CV (test code = 788-0) 22.5 % 12.0-15.5 H PLT (test code = 777-3) 204 166-358 MPV (test code = 60015-4) 9.8 fL 9.5-12.9 NRBC/100 WBC (test code = 1503242719) 2.4 0.0-10.0 NRBC x10^3 (test code = 2624401621) 0.17 See_Comment [Automated messa ge] The system which generated this result transmitted reference range: 10*3/?L. The reference range was not used to interpret this result as normal/abnormal. GRAN MAT (NEUT) % (test code = 770-8) 80.3 % IMM GRAN % (test code = 7315807801) 1.70 % LYMPH % (test code = 736-9) 9.5 % MONO % (test code = 5905-5) 8.5 % EOS % (test code = 713-8) 0.0 % BASO % (test code = 706-2) 0.0 % GRAN MAT x10^3(ANC) (test code = 1939518388) 5.77 10*3/uL 1.88-7.09 IMM GRAN x10^3 (test code = 2420786656) 0.12 10*3/uL 0.00-0.06 H LYMPH x10^3 (test code = 731-0) 0.68 10*3/uL 1.32-3.29 L MONO x10^3 (test code = 742-7) 0.61 10*3/uL 0.33-0.92 EOS x10^3 (test code = 711-2) 0.03-0.39 L BASO x10^3 (test code = 704-7) 0.01-0.07 Lab Interpretation (test code = 10101-3) Abnormal [facility] with Qdzk6677-29-48 08:24:03* Test Item Value Reference Range Interpretation [...] g/dL 31.6-35.1 L RDW-SD (test code = 34120-1) 66.0 fL 39.0-49.9 H RDW-CV (test code = 788-0) 22.5 % 12.0-15.5 H PLT (test code = 777-3) 204 166-358 MPV (test code = 84142-9) 9.8 fL 9.5-12.9 NRBC/100 WBC (test code = 3433004113) 2.4 0.0-10.0 NRBC x10^3 (test code = 0286876120) 0.17 See_Comment [Automated messa ge] The system which generated this result transmitted reference range: 10*3/?L. The reference range was not used to interpret this result as normal/abnormal. GRAN MAT (NEUT) % (test code = 770-8) 80.3 % IMM GRAN % (test code = 4081496467) 1.70 % LYMPH % (test code = 736-9) 9.5 % MONO % (test code = 5905-5) 8.5 % EOS % (test code = 713-8) 0.0 % BASO % (test code = 706-2) 0.0 % GRAN MAT x10^3(ANC) (test code = 0564597555) 5.77 10*3/uL 1.88-7.09 IMM GRAN x10^3 (test code = 2992083216) 0.12 10*3/uL 0.00-0.06 H LYMPH x10^3 (test code = 731-0) 0.68 10*3/uL 1.32-3.29 L MONO x10^3 (test code = 742-7) 0.61 10*3/uL 0.33-0.92 EOS x10^3 (test code = 711-2) 0.03-0.39 L BASO x10^3 (test code = 704-7) 0.01-0.07 Lab Interpretation (test code = 62986-1) [facility] Nougd2994-83-06 08:04:10* Test Item Value Reference Range Interpretation Comme nts LACTIC ACID (test code = 5226613786) 4.15 mmol/L 0.50-2.20 H Lab Interpretation (test cod e = 10475-5) [facility] Pofmb6758-99-75 08:04:10* Test Item Value Reference Range Interpretation Comme nts LACTIC ACID (test code = 5477180548) 4.15 mmol/L 0.50-2.20 H Lab Interpretation (test cod e = 69678-0) [facility] Rejqk9157-74-76 08:04:10* Test Item Value Reference Range Interpretation Comme nts LACTIC ACID (test code = 9398458082) 4.15 mmol/L 0.50-2.20 H Lab Interpretation (test cod e = 71004-0) [facility] Xtldp2442-35-11 05:11:29* Test Item Value Reference Range Interpretation Comme nts LACTIC ACID (test code = 9712003606) 4.23 mmol/L 0.50-2.20 H Lab Interpretation (test cod e = 48748-2) [facility] Jzcvi4978-25-56 05:11:29* Test Item Value Reference Range Interpretation Comme nts LACTIC ACID (test code = 4131712790) 4.23 mmol/L 0.50-2.20 H Lab Interpretation (test cod e = 28631-6) [facility] Bxoaf3435-10-52 05:11:29* Test Item Value Reference Range Interpretation Comme nts LACTIC ACID (test code = 8168669045) 4.23 mmol/L 0.50-2.20 H Lab Interpretation (test cod e = 81318-8) [facility] Umjml8030-45-75 03:16:26* Test Item Value Reference Range Interpretation Comme nts LACTIC ACID (test code = 0997612242) 3.66 mmol/L 0.50-2.20 H Lab Interpretation (test cod e = 63938-2) [facility] Whole Dghgb1750-64-92 03:16:26* Test Item Value Reference Range Interpretation Comme nts LACTIC ACID (test code = 4762358826) 3.66 mmol/L 0.50-2.20 H Lab Interpretation (test cod e = 89278-6) [facility] [id number] 03:16:26* Test Item Value Reference Range Interpretation Comme nts LACTIC ACID (test code = 2239042179) 3.66 mmol/L 0.50-2.20 H Lab Interpretation (test cod e = 55408-2) [facility] [id number] 01:21:56* Test Item Value Reference Range Interpretation Comme nts LACTIC ACID (test code = 9246011479) 3.68 mmol/L 0.50-2.20 H Lab Interpretation (test cod e = 65274-3) [facility] [id number] 01:21:56* Test Item Value Reference Range Interpretation Comme nts LACTIC ACID (test code = 4122754485) 3.68 mmol/L 0.50-2.20 H Lab Interpretation (test cod e = 03657-0) [facility] [id number] 01:21:56* Test Item Value Reference Range Interpretation Comme nts LACTIC ACID (test code = 8238601722) 3.68 mmol/L 0.50-2.20 H Lab Interpretation (test cod e = 12772-5) Abnormal [facility] GLUCOSE (AUTOMATED)2023-11-23 01:07:13* Test Item Value Reference Range Interpretation Comme nts POCT GLU (test code = 9745821158) 193 mg/dL 70-110 H Lab Interpretation (test cod e = 08016-9) Abnormal [facility] GLUCOSE (AUTOMATED)2023-11-23 01:07:13* Test Item Value Reference Range Interpretation Comme nts POCT GLU (test code = 5063476684) 193 mg/dL 70-110 H Lab Interpretation (test cod e = 78031-1) Abnormal [facility] GLUCOSE (AUTOMATED)2023-11-23 01:07:13* Test Item Value Reference Range Interpretation Comme nts POCT GLU (test code = 5248167251) 193 mg/dL 70-110 H Lab Interpretation (test cod e = 71493-4) [facility] [id number] 23:56:10* Test Item Value Reference Range Interpretation Comme nts LACTIC ACID (test code = 3073524533) 3.82 mmol/L 0.50-2.20 H Lab Interpretation (test cod e = 11068-3) [facility] [id number] 23:56:10* Test Item Value Reference Range Interpretation Comme nts LACTIC ACID (test code = 8123923136) 3.82 mmol/L 0.50-2.20 H Lab Interpretation (test cod e = 06859-9) [facility] [id number] 23:56:10* Test Item Value Reference Range Interpretation Comme nts LACTIC ACID (test code = 3036719994) 3.82 mmol/L 0.50-2.20 H Lab Interpretation (test cod e = 07040-5) Abnormal [facility] GLUCOSE (AUTOMATED)2023-11-22 22:00:27* Test Item Value Reference Range Interpretation Comme nts POCT GLU (test code = 0006782207) 218 mg/dL 70-110 H Lab Interpretation (test cod e = 45040-9) Abnormal [facility] GLUCOSE (AUTOMATED)2023-11-22 22:00:27* Test Item Value Reference Range Interpretation Comme nts POCT GLU (test code = 9830201566) 218 mg/dL 70-110 H Lab Interpretation (test cod e = 40640-2) Abnormal [facility] GLUCOSE (AUTOMATED)2023-11-22 22:00:27* Test Item Value Reference Range Interpretation Comme nts POCT GLU (test code = 1925371431) 218 mg/dL 70-110 H Lab Interpretation (test cod e = 49670-5) [facility]normal [facility] Kpcse0939-26-34 21:49:39* Test Item Value Reference Range Interpretation Comme nts LACTIC ACID (test code = 6297943974) 4.40 mmol/L 0.50-2.20 H Lab Interpretation (test cod e = 08762-0) [facility]normal [facility] Whole Vfjyb1216-73-28 21:49:39* Test Item Value Reference Range Interpretation Comme nts LACTIC ACID (test code = 7491276101) 4.40 mmol/L 0.50-2.20 H Lab Interpretation (test cod e = 96823-4) [facility]normal [facility] Rock[facility] Whole Pvsez1479-65-81 21:49:39* Test Item Value Reference Range Interpretation Comme nts LACTIC ACID (test code = 1173059859) 4.40 mmol/L 0.50-2.20 H Lab Interpretation (test cod e = 47142-4) Abnormal [facility] GLUCOSE (AUTOMATED)2023-11-22 21:02:20* Test Item Value Reference Range Interpretation Comme nts POCT GLU (test code = 7272943265) 208 mg/dL 70-110 H Lab Interpretation (test cod e = 75101-3) Abnormal [facility] GLUCOSE (AUTOMATED)2023-11-22 21:02:20* Test Item Value Reference Range Interpretation Comme nts POCT GLU (test code = 2304323176) 208 mg/dL 70-110 H Lab Interpretation (test cod e = 55780-0) Abnormal [facility] GLUCOSE (AUTOMATED)2023-11-22 21:02:20* Test Item Value Reference Range Interpretation Comme nts POCT GLU (test code = 7101763259) 208 mg/dL 70-110 H Lab Interpretation (test cod e = 97941-5) [facility]normal [facility] Hxadi9281-00-90 20:01:46* Test Item Value Reference Range Interpretation Comme nts LACTIC ACID (test code = 9511543963) 6.14 mmol/L 0.50-2.20 H Lab Interpretation (test cod e = 51006-1) [facility]normal [facility] Czuvn9488-44-42 20:01:46* Test Item Value Reference Range Interpretation Comme nts LACTIC ACID (test code = 5226587944) 6.14 mmol/L 0.50-2.20 H Lab Interpretation (test cod e = 34841-1) [facility] Qqjut5981-90-64 20:01:46* Test Item Value Reference Range Interpretation Comme nts LACTIC ACID (test code = 3157000820) 6.14 mmol/L 0.50-2.20 H Lab Interpretation (test cod e = 19872-4) [facility]normal [facility] ABDOMEN HFKLELH5424-93-26 18:29:14 Procedure: ? RIGHT UPPER QUADRANT ULTRASOUND [...] ascites.[facility] LIMITED 2023-11-22 18:29:14Procedure: ? RIGHT UPPER [...] ascites.[facility] Transthoracic echo (TTE)2023-11-22 18:16:22* Test Item Value Reference Range Interpretation Comme nts Height (test code = 7418965956) 63 in Weight (test code = 8684892154) 208 lbs Systolic BP (test code = 4544060636) 146 mmHg Diastolic BP (test code = 7261330783) 103 mmHg Heart Rate (test code = 4731939876) 112 bpm BSA (test code = 4577832773) 1.97 m2 LVOT diameter (test code = 8822396766) 2.5 cm LVOT area (test code = 5558040877) 5.00 cm2 LA size (test code = 4551601969) 4.2 cm MV Peak E Evette (test code = 4251852801) 128.5 cm/s MV Peak A Evette (test code = 5596343360) 62.4 cm/s E/A ratio (test code = 8082390575) 2.06 ratio E wave decelartion time (test code = 0277891320) 0.12 s MV Prop V (test code = 0262795157) 38.00 cm/s LAV(MOD-sp4) (test code = 7733278115) 68.70 mL Tapse (test code = 3945205484) 0.7 cm LA Volume Index (BP) (test code = 9488759201) 34.6 mL/m2 LA volume (BP) (test code = 3331624820) 68.0 mL LAV(MOD-sp2) (test code = 9119916804) 66.30 mL Ao peak evette (test code = 1543090930) 124.9 cm/s Ao max PG (test code = 4081324204) 6.20 mm[Hg] AV peak gradient (test code = 7550114301) 6.2 mmHg LVOT stroke volume (test code = 1519669906) 42.40 cm3 LVOT peak evette (test code = 2957508636) 67.8 cm/s LVOT mn grad (test code = 1290668390) 0.9 mmHg AV LVOT peak gradient (test code = 1906235469) 1.84 mmHg LVOT peak VTI (test code = 2140153694) 8.4 cm AV area peak evette (test code = 9280795864) 2.7 cm2 LV V1 mean (test code = 4760657516) 43.20 cm/s TR Peak Evette (test code = 2532198269) 247.7 cm/s Triscuspid Valve Regurgitation Peak Gradient (test code = 8935725660) 24.5 mmHg MR max PG (test code = 5066545927) 85.20 mm[Hg] MR max evette (test code = 7105338146) 461.50 cm/s Mr max evette (test code = 7449136335) 461.5 m/s AV regurgitation pressure 1/2 time (test code = 4029199689) 305.5 ms AI dec slope (test code = 5520086550) 432.10 cm/s2 AI max evette (test code = 7484867081) 450.60 cm/s AI max PG (test code = 9344348477) 81.20 mm[Hg] LVIDD (test code = 7912772572) 5.00 cm Left Ventricular End Diastolic Volume by Teichholz Method (test code = 8017351) 116.6 mL IVS (test code = 3414387208) 0.93 cm Interventricular Septum Diastolic Thickness by 2D (test code = 8521648) 0.93 cm LVPWD (test code = 4636189061) 1.00 cm PW (test code = 9452401133) 1.00 cm 0.6-1.1 EF(Teich) (test code = 8549418196) 33.90 % LVIDS (test code = 2134151287) 4.20 cm Left Ventricular End Systolic Volume by Teichholz Method (test code = 8733103) 77.1 mL FS (test code = 2060258963) 16 % EF - 2D (test code = 84530605) 33.90 % Radiology Study observation (narrative) (test code = 58940-3) LYNDSAY (test code = LYNDSAY) ?Left?Ventricle: Left [...] [facility]an[facility] (TTE)2023-11-22 18:16:22* Test Item Value Reference Range Interpretation Comme nts Height (test code = 1417986994) 63 in Weight (test code = 3194086768) 208 lbs Systolic BP (test code = 1609092815) 146 mmHg Diastolic BP (test code = 3197331820) 103 mmHg Heart Rate (test code = 9694977302) 112 bpm BSA (test code = 9464839341) 1.97 m2 LVOT diameter (test code = 4069329897) 2.5 cm LVOT area (test code = 6850620910) 5.00 cm2 LA size (test code = 8485261023) 4.2 cm MV Peak E Evette (test code = 8286845769) 128.5 cm/s MV Peak A Evette (test code = 4422368527) 62.4 cm/s E/A ratio (test code = 5241507012) 2.06 ratio E wave decelartion time (test code = 1158767227) 0.12 s MV Prop V (test code = 4632145689) 38.00 cm/s LAV(MOD-sp4) (test code = 1934049328) 68.70 mL Tapse (test code = 3534490268) 0.7 cm LA Volume Index (BP) (test code = 2264229268) 34.6 mL/m2 LA volume (BP) (test code = 9690612127) 68.0 mL LAV(MOD-sp2) (test code = 2970972778) 66.30 mL Ao peak evette (test code = 2086704442) 124.9 cm/s Ao max PG (test code = 9442834208) 6.20 mm[Hg] AV peak gradient (test code = 5679244170) 6.2 mmHg LVOT stroke volume (test code = 7363359866) 42.40 cm3 LVOT peak evette (test code = 7495410580) 67.8 cm/s LVOT mn grad (test code = 2113796894) 0.9 mmHg AV LVOT peak gradient (test code = 8231348728) 1.84 mmHg LVOT peak VTI (test code = 8171756319) 8.4 cm AV area peak evette (test code = 6927477196) 2.7 cm2 LV V1 mean (test code = 3110765954) 43.20 cm/s TR Peak Evette (test code = 0076527831) 247.7 cm/s Triscuspid Valve Regurgitation Peak Gradient (test code = 4633452567) 24.5 mmHg MR max PG (test code = 3421182646) 85.20 mm[Hg] MR max evette (test code = 8070810108) 461.50 cm/s Mr max evette (test code = 0803522049) 461.5 m/s AV regurgitation pressure 1/2 time (test code = 8466638558) 305.5 ms AI dec slope (test code = 4527433195) 432.10 cm/s2 AI max evette (test code = 5571814664) 450.60 cm/s AI max PG (test code = 1848391067) 81.20 mm[Hg] LVIDD (test code = 7853308594) 5.00 cm Left Ventricular End Diastolic Volume by Teichholz Method (test code = 3200167) 116.6 mL IVS (test code = 3336807774) 0.93 cm Interventricular Septum Diastolic Thickness by 2D (test code = 1899642) 0.93 cm LVPWD (test code = 8717958368) 1.00 cm PW (test code = 5191849568) 1.00 cm 0.6-1.1 EF(Teich) (test code = 3477041467) 33.90 % LVIDS (test code = 1057250415) 4.20 cm Left Ventricular End Systolic Volume by Teichholz Method (test code = 7321656) 77.1 mL FS (test code = 0521519964) 16 % EF - 2D (test code = 00587481) 33.90 % Radiology Study observation (narrative) (test code = 73698-2) LYNDSAY (test code = LYNDSAY) ?Left?Ventricle: Left [...] [facility] Rock[facility] Whole Ozswz3079-57-46 17:29:30* Test Item Value Reference Range Interpretation Comme nts LACTIC ACID (test code = 1903209758) 4.00 mmol/L 0.50-2.20 H QUES Lab Interpretation (test cod e = 87876-6) [facility]normal [facility] Pronm8574-68-48 17:29:30* Test Item Value Reference Range Interpretation Comme nts LACTIC ACID (test code = 5180358621) 4.00 mmol/L 0.50-2.20 H QUES Lab Interpretation (test cod e = 95387-7) [facility]normal [facility] Kusrm5903-52-32 17:29:30* Test Item Value Reference Range Interpretation Comme nts LACTIC ACID (test code = 3380387489) 4.00 mmol/L 0.50-2.20 H QUES Lab Interpretation (test cod e = 07770-3) Abnormal [facility] GLUCOSE (AUTOMATED)2023-11-22 17:01:27* Test Item Value Reference Range Interpretation Comme nts POCT GLU (test code = 9112227408) 152 mg/dL 70-110 H Notified Provide r Lab Interpretation (test code = 76702-5) Abnormal [facility] GLUCOSE (AUTOMATED)2023-11-22 17:01:27* Test Item Value Reference Range Interpretation Comme nts POCT GLU (test code = 1916696852) 152 mg/dL 70-110 H Notified Provide r Lab Interpretation (test code = 60129-3) Abnormal [facility] GLUCOSE (AUTOMATED)2023-11-22 17:01:27* Test Item Value Reference Range Interpretation Comme nts POCT GLU (test code = 5571292819) 152 mg/dL 70-110 H Notified Provide r Lab Interpretation (test code = 28970-7) Abnormal [facility] Zeldf4072-23-21 16:28:02* Test Item Value Reference Range Interpretation Comme nts IRON (test code = 7815447603) 44 ug/dL 50-160 L TIBC (test code = 0179353467) 395 ug/dL 250-410 % FE SAT (test code = 4619638749) 11 % 20-50 L Lab Interpretation (test cod e = 90637-3) Abnormal [facility] Uyeyu5850-08-44 16:28:02* Test Item Value Reference Range Interpretation Comme nts IRON (test code = 2621021431) 44 ug/dL 50-160 L TIBC (test code = 5595208945) 395 ug/dL 250-410 % FE SAT (test code = 0337671297) 11 % 20-50 L Lab Interpretation (test cod e = 71982-9) [facility]normal [facility] RockIron Vghhi5944-72-00 16:28:02* Test Item Value Reference Range Interpretation Comme nts IRON (test code = 5538856483) 44 ug/dL 50-160 L TIBC (test code = 4488230921) 395 ug/dL 250-410 % FE SAT (test code = 2823623335) 11 % 20-50 L Lab Interpretation (test cod e = 08472-0) Abnormal [facility] RockCom. Metabolic Panel (96917)2023-11-22 16:20:58* Test Item Value Reference Range Interpretation Comme nts NA (test code = 7076229420) 135 mmol/L 135-145 K (test code = 5339209119) 4.0 mmol/L 3.5-5.0 Slight hemolysis CL (test code = 4243380876) 108 mmol/L 98-108 CO2 TOTAL (test code = 3475646050) 20 mmol/L 23-31 L AGAP (test code = 9468746745) 7 2-16 BUN (test code = 5798640501) 20 mg/dL 7-23 Slight hemolysis GLUCOSE (test code = 1837135928) 136 mg/dL 70-110 H CREATININE (test code = 2160-0) 0.48 mg/dL 0.50-1.04 L TOTAL BILI (test code = 5249435425) 0.8 mg/dL 0.1-1.1 CALCIUM (test code = 7550908401) 6.7 mg/dL 8.6-10.6 L T PROTEIN (test code = 6234844117) 5.6 g/dL 6.3-8.2 L ALBUMIN (test code = 6122943387) 3.1 g/dL 3.5-5.0 L ALK PHOS (test code = 2270737749) 282 U/L 34-122 H Slight hemolysis ALTv (test code = 1742-6) 196 U/L 5-35 H AST(SGOT) (test code = 3616080657) 56 U/L 13-40 H Slight hemolysis eGFR (test code = 94294-8) 114.8 mL/min/1.73m2 CKD-EPI eGFR (2020). Assuming creatinine has been stable day-to-day for at least three months, the eGFR indicates Category G1 (>= 90 mL/min/1.73 m2) Lab Interpretation (test code = 72893-7) Abnormal [facility] Metabolic Panel (15907)2023-11-22 16:20:58* Test Item Value Reference Range Interpretation Comme nts NA (test code = 1608382801) 135 mmol/L 135-145 K (test code = 0256309319) 4.0 mmol/L 3.5-5.0 Slight hemolysis CL (test code = 2996086666) 108 mmol/L 98-108 CO2 TOTAL (test code = 4314493148) 20 mmol/L 23-31 L AGAP (test code = 0574029302) 7 2-16 BUN (test code = 6765111224) 20 mg/dL 7-23 Slight hemolysis GLUCOSE (test code = 5918312955) 136 mg/dL 70-110 H CREATININE (test code = 2160-0) 0.48 mg/dL 0.50-1.04 L TOTAL BILI (test code = 4336764299) 0.8 mg/dL 0.1-1.1 CALCIUM (test code = 0405951740) 6.7 mg/dL 8.6-10.6 L T PROTEIN (test code = 0099022022) 5.6 g/dL 6.3-8.2 L ALBUMIN (test code = 8621006850) 3.1 g/dL 3.5-5.0 L ALK PHOS (test code = 8183144053) 282 U/L 34-122 H Slight hemolysis ALTv (test code = 1742-6) 196 U/L 5-35 H AST(SGOT) (test code = 8847957818) 56 U/L 13-40 H Slight hemolysis eGFR (test code = 69069-5) 114.8 mL/min/1.73m2 CKD-EPI eGFR (2020). Assuming creatinine has been stable day-to-day for at least three months, the eGFR indicates Category G1 (>= 90 mL/min/1.73 m2) Lab Interpretation (test code = 73362-0) Abnormal [facility] Metabolic Panel (00929)2023-11-22 16:20:58* Test Item Value Reference Range Interpretation Comme nts NA (test code = 3111824678) 135 mmol/L 135-145 K (test code = 2708224669) 4.0 mmol/L 3.5-5.0 Slight hemolysis CL (test code = 2687842235) 108 mmol/L 98-108 CO2 TOTAL (test code = 5066745214) 20 mmol/L 23-31 L AGAP (test code = 7412237285) 7 2-16 BUN (test code = 9278434576) 20 mg/dL 7-23 Slight hemolysis GLUCOSE (test code = 2652149884) 136 mg/dL 70-110 H CREATININE (test code = 2160-0) 0.48 mg/dL 0.50-1.04 L TOTAL BILI (test code = 8013726287) 0.8 mg/dL 0.1-1.1 CALCIUM (test code = 6170470237) 6.7 mg/dL 8.6-10.6 L T PROTEIN (test code = 6389173489) 5.6 g/dL 6.3-8.2 L ALBUMIN (test code = 2342099283) 3.1 g/dL 3.5-5.0 L ALK PHOS (test code = 5681251584) 282 U/L 34-122 H Slight hemolysis ALTv (test code = 1742-6) 196 U/L 5-35 H AST(SGOT) (test code = 0976913351) 56 U/L 13-40 H Slight hemolysis eGFR (test code = 68937-1) 114.8 mL/min/1.73m2 CKD-EPI eGFR (2020). Assuming creatinine has been stable day-to-day for at least three months, the eGFR indicates Category G1 (>= 90 mL/min/1.73 m2) Lab Interpretation (test code = 98636-9) [facility]normal [facility] CHEST PULMONARY RAMVZILQS5366-53-76 15:51:03PROCEDURE: CT ANGIO CHEST WITH CONTRAST - [...] [facility] Rock[facility] CHEST PULMONARY YDQFCDGBM6060-24-19 15:51:03PROCEDURE: CT ANGIO CHEST WITH CONTRAST - [...] [facility] RockLactic Acid Whole Wfjlu5637-82-17 14:33:11* Test Item Value Reference Range Interpretation Comme nts LACTIC ACID (test code = 5485165011) 4.04 mmol/L 0.50-2.20 H QUES Lab Interpretation (test cod e = 64406-2) Abnormal [facility] RockLactic Acid Whole Pqhor8405-47-07 14:33:11* Test Item Value Reference Range Interpretation Comme nts LACTIC ACID (test code = 8538316167) 4.04 mmol/L 0.50-2.20 H QUES Lab Interpretation (test cod e = 18023-1) Abnormal [facility] RockLavtic Acid Whole Tfnnm7372-99-86 14:33:11* Test Item Value Reference Range Interpretation Comme nts LACTIC ACID (test code = 0855164550) 4.04 mmol/L 0.50-2.20 H QUES Lab Interpretation (test cod e = 22382-4) Abnormal [facility] GLUCOSE (AUTOMATED)2023-11-22 13:26:51* Test Item Value Reference Range Interpretation Comme nts POCT GLU (test code = 5837470520) 180 mg/dL 70-110 H Notified Provide r Lab Interpretation (test code = 45210-0) Abnormal [facility] GLUCOSE (AUTOMATED)2023-11-22 13:26:51* Test Item Value Reference Range Interpretation Comme nts POCT GLU (test code = 5296100255) 180 mg/dL 70-110 H Notified Provide r Lab Interpretation (test code = 68922-0) Abnormal [facility] GLUCOSE (AUTOMATED)2023-11-22 13:26:51* Test Item Value Reference Range Interpretation Comme nts POCT GLU (test code = 0931706691) 180 mg/dL 70-110 H Notified Provide r Lab Interpretation (test code = 85162-9) Abnormal [facility] RockXR SHOULDER 2+ VW EEHHG0885-82-14 09:05:30 Exam: XR SHOULDER 2+ VW RIGHT, [...] [facility] RockXR SHOULDER 2+ VW IWUIJ9516-20-55 09:05:30 Exam: XR SHOULDER 2+ VW RIGHT, [...] [facility] RockUS LOWER EXTREMITY VEIN WITH COMPRESSION BILATERAL (ONLY [...] on the right. No DVT on theleft.[facility] EXTREMITY VEIN WITH COMPRESSION BILATERAL [...] theleft.[facility] RockLactic Acid Whole Blood 2023-11-22 08:16:23* Test Item Value Reference Range Interpretation Comme nts LACTIC ACID (test code = 6798475851) 3.93 mmol/L 0.50-2.20 H Lab Interpretation (test cod e = 13126-5) Abnormal [facility] RockLactic Acid Whole Eehwd3351-97-14 08:16:23* Test Item Value Reference Range Interpretation Comme nts LACTIC ACID (test code = 2560008236) 3.93 mmol/L 0.50-2.20 H Lab Interpretation (test cod e = 89653-7) Abnormal [facility] RockLactic Acid Whole Ylyvv6183-43-59 08:16:23* Test Item Value Reference Range Interpretation Comme nts LACTIC ACID (test code = 1651877662) 3.93 mmol/L 0.50-2.20 H Lab Interpretation (test cod e = 44811-0) Abnormal [facility] RockProthrombin Time / [id number] 05:00:31* Test Item Value Reference Range Interpretation Comme [facility] PROTIME PATIENT (test code = 5964-2) 15.4 10.1-12.6 H INR (test code = 6301-6) 1.3 Normal INR <1.1; Warfarin Therapeutic range 2.0 to 3.0 or 2.5 to 3.5, depending upon the indications. Lab Interpretation (test code = 20642-7) Abnormal [facility] RockaPTT2024-05-05 05:00:31* Test Item Value Reference Range Interpretation Comme [facility] APTT Patient (test code = 3173-2) 27 26-36 LYNDSAY (test code = LYNDSAY) The [facility] patient population mean normal value for aPTT is 30 seconds. Lab Interpretation (test code = 83344-5) Normal [facility] RockProthrombin Time / [id number] 05:00:31* Test Item Value Reference Range Interpretation Comme [facility] PROTIME PATIENT (test code = 5964-2) 15.4 10.1-12.6 H INR (test code = 6301-6) 1.3 Normal INR <1.1; Warfarin Therapeutic range 2.0 to 3.0 or 2.5 to 3.5, depending upon the indications. Lab Interpretation (test code = 82727-2) Abnormal [facility] RockaPTT2024-05-05 05:00:31* Test Item Value Reference Range Interpretation Comme nts APTT Patient (test code = 3173-2) LYNDSAY (test code = LYNDSAY) The [facility] patient population mean normal value for aPTT is 30 seconds. Lab Interpretation (test code = 77830-6) Normal [facility] RockProthrombin Time / [id number] 05:00:31* Test Item Value Reference Range Interpretation Comme nts PROTIME PATIENT (test code = 5964-2) 15.4 10.1-12.6 H INR (test code = 6301-6) 1.3 Normal INR <1.1; Warfarin Therapeutic range 2.0 to 3.0 or 2.5 to 3.5, depending upon the indications. Lab Interpretation (test code = 78670-3) Abnormal [facility] RockaPTT2024-05-05 05:00:31* Test Item Value Reference Range Interpretation Comme [facility] APTT Patient (test code = 3173-2) LYNDSAY (test code = LYNDSAY) The [facility] patient population mean normal value for aPTT is 30 seconds. Lab Interpretation (test code = 91386-4) Normal [facility] RockThyroid Stimulating Qqqrbri1487-11-17 04:25:31 * Test Item Value Reference Range Interpretation Comme nts TSH (test code = 0683557800) 5.26 0.45-4.70 H Lab Interpretation (test cod e = 63057-9) Abnormal [facility] RockThyroid Stimulating Rkvichd0911-15-84 04:25:31 * Test Item Value Reference Range Interpretation Comme nts TSH (test code = 5825346631) 5.26 0.45-4.70 H Lab Interpretation (test cod e = 59029-5) Abnormal [facility] RockThyroid Stimulating Nutdvrd7490-48-79 04:25:31 * Test Item Value Reference Range Interpretation Comme nts TSH (test code = 7627182418) 5.26 0.45-4.70 H Lab Interpretation (test cod e = 44599-1) Abnormal [facility]2024-05-05 04:18:14Megan Rondon MD ? ? 11/21/2023 11:18 PMCritical Care Performed by: Megan Rondon [facility]DAuthorized by: Megan Rondon MD ?Critical care provider [...] of separately billable procedures and treating other patients.[facility] [id number] 04:11:28* Test Item Value Reference Range Interpretation Comme nts FREE T4 (test code = 6256485849) 1.07 0.78-2.20 Lab Interpretation (test cod e = 67200-9) Normal [facility] E28799-31-04 04:11:28* Test Item Value Reference Range Interpretation Comme nts FREE T4 (test code = 1539513570) 1.07 0.78-2.20 Lab Interpretation (test cod e = 93041-8) Normal [facility] R11522-81-51 04:11:28* Test Item Value Reference Range Interpretation Comme nts FREE T4 (test code = 1140395245) 1.07 0.78-2.20 Lab Interpretation (test cod e = 74495-8) Normal [facility] RockXR CHEST 1 [id number] 03:22:56Exam: Chest (1 View), 11/21/2023 9:15 PM. [...] seen.[facility] RockXR CHEST 1 [id number] 03:22:56Exam: Chest (1 View), 11/21/2023 9:15 PM. [...] [facility] RockRADIOLOGY BVQCKRWZBOQQC9310-43-24 18:34:06 Ordered by an unspecified provider.[facility] RockRADIOLOGY MANTSOQKBZTZB3881-25-41 19:18:01Ordered by an unspecified provider.[facility] RockBLOOD NKHIGCG8032-77-04 07:00:10* Test Item Value Reference Range Interpretation Comme nts CULTURE (BEAKER) (test code = 1095) No growth in 5 days XR KNEE 3 VIEWS LEFT Non-Weight Wnowggy8430-88-92 09:27:00XR KNEE 3 VIEWS LEFT CLINICAL INDICATION: S/p fall COMPARISON: None FINDINGS: 3views of the left kne e. There is no fracture or malalignment. The femorotibial andfemoropatellar joint spaces are intact. No joint fluid is demonstrated.Surrounding soft tissues are unremarkable. Scattered atheroscleroticvascular calcifications.[facility]XR [facility]IE[facility] DWNI7744-20-33 09:27:00 [facility] : 1970 Sex: FXR KNEE 3 VIEWS LEFT CLINICAL INDICATION: S/p fall COMPARISON: NoneFINDINGS: 3views of the left knee.There is no fracture or malalignment. The femorotibial andfemoropatellar joint spaces are intact.No joint fluid is demonstrated.Surrounding soft tissues are unremarkable. Scattered atheroscleroticvascular calcifications.IMPRESSION: No acute fracture or malalignment of the knee Electronically Signed By: Maxim Sultana09/08/2023 09:29 CDTWorkstation Name: [id number] tssun2656-09-75 08:53:50* Test Item Value Reference Range Interpretation Comme nts POC-Glucose Meter (test code = 1538) 101 mg/dL 70-110 : TESTED AT [facility] [address] [facility], [address]: Estimator Lumber/Zig Zag Spring Machine Operator ID = [id number] for Marie Delacruz Lab Interpretation (test code = 93512-6) [facility] [id number] 08:53:50* Test Item Value Reference Range Interpretation Comme nts POC-GLUCOSE METER (BEAKER) (test code = 1538) 101 mg/dL 70-110 : TESTED AT [facility] [address] [facility], [address]: Estimator Lumber/Zig Zag Spring Machine Operator ID = [id number] for Marie [place] BASIC METABOLIC [id number] 05:40:45* Test Item Value Reference Range Interpretation [...] GFR is not applicable for dialysis patients Estimator Lumber ID - [id number] 05:40:45* Test Item Value Reference Range Interpretation Comme nts MAGNESIUM (BEAKER) (test cod e = 627) 2.1 mg/dL 1.6-2.6 Estimator Lumber ID - [id number] 05:40:45* Test Item Value Reference Range Interpretation Comme nts PHOSPHORUS (BEAKER) (test co de = 604) 5.0 mg/dL 2.3-4.7 H Estimator Lumber ID - ADMINCBC W/PLT COUNT & AUTO [id number] 04:49:23* Test Item Value Reference Range Interpretation [...] code = 2801) 0.40 % 0.00-1.00 POCT-GLUCOSE [id number] 21:40:23* Test Item Value Reference Range Interpretation Comme nts POC-GLUCOSE METER (BEAKER) (test code = 1538) 144 mg/dL 70-110 H : TESTED AT [facility] [address] [place], [address]: Estimator Lumber/Zig Zag Spring Machine Operator ID = [id number] for Baeza, Diana Venous doppler legs secaeyxcl6208-50-49 14:27:12PV LAB - Lower Extremities DVT Study Demographics Patient Name YUE ROMERO Date of Study 09/07/2023 [place] Age 53 Visit Number [id number] Gender Female Accession Number [id number] Dateof 1970 Referring EDWARD FARRELL Room Number 2263 Physician Yardmaster Adalberto Wood Interpreting John Solorio, Physician FellowProcedureType [...] Diameters are measured in [facility] [id number] 04:05:54* Test Item Value Reference Range Interpretation Comme nts MAGNESIUM (BEAKER) (test code = 627) 2.0 mg/dL 1.6-2.6 Specimen sligh tly hemolyzed Estimator Lumber ID - MADELINE KEVBZYESYWN6941-90-01 04:05:54* Test Item Value Reference Range Interpretation Comme nts PHOSPHORUS (BEAKER) (test code = 604) 4.5 mg/dL 2.3-4.7 Specimen sligh tly hemolyzed Estimator Lumber ID - MADELINE WBASIC METABOLIC [id number] 04:05:54* Test Item Value Reference Range Interpretation [...] GFR is not applicable for dialysis patients Estimator Lumber ID - MADELINE WCBC W/PLT COUNT & AUTO [id number] 03:40:48* Test Item Value Reference Range Interpretation [...] code = 2801) 0.30 % 0.00-1.00 POCT-GLUCOSE [id number] 21:28:35* Test Item Value Reference Range Interpretation Comme nts POC-GLUCOSE METER (BEAKER) (test code = 1538) 127 mg/dL 70-110 H : TESTED AT [place] [id number] [facility], [address]: Estimator Lumber/Zig Zag Spring Machine Operator ID = [id number] for Rosa Morinbubba POCT-GLUCOSE [id number] 18:49:21* Test Item Value Reference Range Interpretation Comme nts POC-GLUCOSE METER (BEAKER) (test code = 1538) 122 mg/dL 70-110 H : TESTED AT [address], [address]: Estimator Lumber/Zig Zag Spring Machine Operator ID = [id number] for Lauren Santillan POCT-GLUCOSE [id number] 13:27:27* Test Item Value Reference Range Interpretation Comme nts POC-GLUCOSE METER (BEAKER) (test code = 1538) 130 mg/dL 70-110 H : TESTED AT [place] [id number] [facility], [address]: Estimator Lumber/Zig Zag Spring Machine Operator ID = [id number] for Lauren Santillan [id number] 09:09:14* Test Item Value Reference Range Interpretation Comme nts MAGNESIUM (BEAKER) (test cod e = 627) 2.2 mg/dL 1.6-2.6 [id number] 09:09:14* Test Item Value Reference Range Interpretation Comme nts PHOSPHORUS (BEAKER) (test co de = 604) 4.8 mg/dL 2.3-4.7 H BASIC METABOLIC [id number] 09:09:14* Test Item Value Reference Range Interpretation [...] is not applicable for dialysis patients POCT-GLUCOSE [id number] 08:33:30* Test Item Value Reference Range Interpretation Comme nts POC-GLUCOSE METER (BEAKER) (test code = 1538) 132 mg/dL 70-110 H : TESTED AT [facility] [address] [place], [address]: Estimator Lumber/Zig Zag Spring Machine Operator ID = [id number] for Lauren Santillan CBC W/PLT COUNT & AUTO [id number] 05:47:59* Test Item Value Reference Range Interpretation [...] code = 2801) 0.40 % 0.00-1.00 POCT-GLUCOSE [id number] 21:35:37* Test Item Value Reference Range Interpretation Comme nts POC-GLUCOSE METER (LATOYA) (test code = 1538) 129 mg/dL 70-110 H : TESTED AT [facility] [address] [place], [address]: Estimator Lumber/Zig Zag Spring Machine Operator ID = [id number] for Ryan Morin MR Brain Without & With IV Anqrpoet4023-02-95 15:49:58MR BRAIN WITH & WITHOUT IV CONTRAST [...] limits. No obstructive paranasal sinus disease. Additionalfindings: None.[facility] HospitalMR BRAIN WITH & WITHOUT IV [id number] 15:49:58 [facility] : 1970 [...] Signed By: Zeinab Dempsey09/05/2023 15:53 CDTWorkstation Name: [id number] METER 2023-09-05 08:34:25* Test Item Value Reference Range Interpretation Comme nts POC-GLUCOSE METER (BEAKER) (test code = 1538) 115 mg/dL 70-110 H : TESTED AT [facility] [address] [facility], [address]: Estimator Lumber/Zig Zag Spring Machine Operator ID = [id number] for DOMINGA AMADOR BASIC METABOLIC [id number] 06:06:56* Test Item Value Reference Range Interpretation [...] GFR is not applicable for dialysis patients Estimator Lumber ID - VPCGVAIGRBZVEW8315-21-24 06:06:56* Test Item Value Reference Range Interpretation Comme nts MAGNESIUM (BEAKER) (test cod e = 627) 2.2 mg/dL 1.6-2.6 Estimator Lumber ID - LKWAESNEWEVRNIJ4811-05-88 06:06:56* Test Item Value Reference Range Interpretation Comme nts PHOSPHORUS (BEAKER) (test co de = 604) 3.8 mg/dL 2.3-4.7 Estimator Lumber ID - ADMINCBC W/PLT COUNT & AUTO [id number] 05:29:32* Test Item Value Reference Range Interpretation [...] code = 2801) 0.50 % 0.00-1.00 POCT-GLUCOSE [id number] 04:55:18* Test Item Value Reference Range Interpretation Comme nts POC-GLUCOSE METER (BEAKER) (test code = 1538) 99 mg/dL 70-110 : TESTED AT [address], [address]: Estimator Lumber/Zig Zag Spring Machine Operator ID = [id number] for Mikel, Reshawn POCT-GLUCOSE [id number] 21:49:23* Test Item Value Reference Range Interpretation Comme nts POC-GLUCOSE METER (BEAKER) (test code = 1538) 124 mg/dL 70-110 H : TESTED AT [address], [address]: Estimator Lumber/Zig Zag Spring Machine Operator ID = [id number] for Mikel, Reshawn POCT-GLUCOSE [id number] 15:55:53* Test Item Value Reference Range Interpretation Comme nts POC-GLUCOSE METER (BEAKER) (test code = 1538) 126 mg/dL 70-110 H : TESTED AT [address], [address]: Estimator Lumber/Zig Zag Spring Machine Operator ID = [id number] for Hemanes, Diana'Constance UFZBKGTJDCZQT0893-03-56 12:37:56* Test Item Value Reference Range Interpretation Comme nts PROCALCITONIN (BEAKER) (test code = 3036) < ng/mL <0.05 SEPSIS RISK (ng/mL)Low: 0.05-0.50Intermediate: 0.51-2.00High: >=2.01SARS- CoV2/Influenza/RSV [id number] 12:18:09* Test Item Value Reference Range Interpretation Comments SARS-COV2/RT-PCR (test code = 66495-3) Negative Negative The SARS-CoV-2 target nucleic acids [...] provider. Influenza A RT-PCR (test code = 16062-7) Negative Negative The Flu A target nucleic acids are not detected in this specimen. Influenza B RT-PCR (test code = 38459-1) Negative Negative The Flu B target nucleic acids are not detected in this specimen. RSV by RT-PCR (test code = 94403-2) Negative Negative The RSV target nucleic acids [...] SARS-CoV-2/Flu/RSV by their healthcare provider. Results from [facility] Xpert Xpress SARS-CoV-2/Flu/RSV test should [...] the Act. Fact Sheet for Healthcare Providers:https://w [employer]/Docu ments/Xpert%20Xpres s%20SARS%20CoV-2/Fa ct%20Sheets/302-390 2%96QHMU-YXS-7%20HE ALTHCARE%20PROVIDER S%20FACT%20SHEET.pd f Fact Sheet for Healthcare Patients:https://maria elena [employer]/Docum ents/Xpert%20Xpress %20SARS%20Cov-2/Fac t%20Sheets/302-3801 %72NOEF-AWV-4%20PAT IENT%20FACT%20SHEET .pdf Lab Interpretation (test code = 05635-0) Normal [facility]INFLUENZA/RSV [id number]-[id number] 12:18:09* Test Item Value Reference Range Interpretation Comme nts SARS-COV2/RT-PCR (test code = 8677349) Negative Negative The SARS-CoV-2 t arget nucleic [...] provider. INFLUENZA A RT-PCR (test code = 8048979) Negative Negative The Flu A target nucleic acids are not detected in this specimen. INFLUENZA B RT-PCR (test code = 3586866) Negative Negative The Flu B target nucleic acids are not detected in this specimen. RSV RT-PCR (test code = 6662805) Negative Negative The RSV target n ucleic [...] 564(g) of the Act.Fact Sheet for Healthcare Providers:https://www.[employer]/Documents/Xpert%20Xpress%20SARS%20CoV-2/Fact%2 0Sheets/302-3902%01UIOZ-CUK-5%20HEALTHCARE%20PROVIDERS%20FACT%20SHEET.pdfFact Sheet for Healthcare Patients:https://ww w.[employer]/Documents/Xpert%20Xpress%20SARS%20Cov-2/Fact%20Sheets/302-3801%20S ARS-COV-2%20PATIENT%20FACT%20SHEET.pdfPOCT-GLUCOSE [id number] 11:08:35* Test Item Value Reference Range Interpretation Comme nts POC-GLUCOSE METER (BEAKER) (test code = 1538) 111 mg/dL 70-110 H : TESTED AT [facility] [address] [facility], [address]: Estimator Lumber/Zig Zag Spring Machine Operator ID = [id number] for HemTramaine montgomery POCT-GLUCOSE [id number] 08:16:42* Test Item Value Reference Range Interpretation Comme nts POC-GLUCOSE METER (BEAKER) (test code = 1538) 108 mg/dL 70-110 : TESTED AT [facility] [address] [facility], [address]: Estimator Lumber/Zig Zag Spring Machine Operator ID = [id number] for Vargas Beata MR spine lumbar without IV sytrpvst8405-96-98 07:58:49MR LUMBAR SPINE WITHOUT IV CONTRAST, MR [...] Posterior ligament ossifications at the calcifications at B76-W72utzhofy moderate spinal canal stenosisPosterior disc osteophyte at the T11-T12 level causing mild spinal canalstenosis The spinal cord is normal in caliber and signal intensity. There is no significant foraminal or spinal canal stenosis. 2.1 x 2.3 cm left adrenal nodule, incompletely characterized Paraspinal soft tissues are unremarkable. Lumbar spine: Postoperative changes from posterior decompression at the L3 and J6ixhpre. A 1.3 x 1.5 cm (AP by [...] facet arthropathy with moderatebilateral neural foraminal stenosisCHI [facility]joMR thoracic spine without IV uroxzvnj9748-92-49 07:58:49MR LUMBAR SPINE WITHOUT IV CONTRAST, MR [...] Posterior ligament ossifications at the calcifications at P50-I65gdtrtwd moderate spinal canal stenosisPosterior disc osteophyte at the T11-T12 level causing mild spinal canalstenosis The spinal cord is normal in caliber and signal intensity. There is no significant foraminal or spinal canal stenosis. 2.1 x 2.3 cm left adrenal nodule, incompletely characterized Paraspinal soft tissues are unremarkable. Lumbar spine: Postoperative changes from posterior decompression at the L3 and W8tgmezy. A 1.3 x 1.5 cm (AP by [...] facet arthropathy with moderatebilateral neural foraminal stenosisCHI [facility] VallejoMR spine cervical without IV miazvwdc3670-24-99 07:58:49MR LUMBAR SPINE WITHOUT IV CONTRAST, MR [...] Posterior ligament ossifications at the calcifications at B81-B66pkgntca moderate spinal canal stenosisPosterior disc osteophyte at the T11-T12 level causing mild spinal canalstenosis The spinal cord is normal in caliber and signal intensity. There is no significant foraminal or spinal canal stenosis. 2.1 x 2.3 cm left adrenal nodule, incompletely characterized Paraspinal soft tissues are unremarkable. Lumbar spine: Postoperative changes from posterior decompression at the L3 and T2lfmtsm. A 1.3 x 1.5 cm (AP by [...] facet arthropathy with moderatebilateral neural foraminal stenosisCHI [facility] VallejoMR CERVICAL SPINE WITHOUT IV [id number] 07:58:49 [facility] : 1970 Sex: [...] ligament ossifications at the calcifications at T10- W51saxgtmp moderate spinal canal stenosisPosterior disc osteophyte at the T11- T12 level causing mild spinal canalstenosisThe spinal cord is normal in caliber and signal intensity. There is no significant foraminal or spinal canal stenosis.2.1 x 2.3 cm left adrenal nodule, incompletely characterizedParaspinal soft tissues are unremarkable.Lumbar spine:Postoperative changes from posterior decompression at the L3 and U8wcgbhr. A 1.3 x 1.5 cm (AP by [...] Signed By: Maxim Sultana09/04/2023 08:00 CDTWorkstation Name: [id number] THORACIC SPINE WITHOUT IV [id number] 07:58:49 [facility] 1970 Sex: [...] ligament ossifications at the calcifications at T10- F45yplzvtl moderate spinal canal stenosisPosterior disc osteophyte at the T11- T12 level causing mild spinal canalstenosisThe spinal cord is normal in caliber and signal intensity. There is no significant foraminal or spinal canal stenosis.2.1 x 2.3 cm left adrenal nodule, incompletely characterizedParaspinal soft tissues are unremarkable.Lumbar spine:Postoperative changes from posterior decompression at the L3 and R0almndq. A 1.3 x 1.5 cm (AP by [...] Signed By: Maxim Sultana09/04/2023 08:00 CDTWorkstation Name: [id number] LUMBAR SPINE WITHOUT IV [id number] 07:58:49 [facility] : 1970 [...] ligament ossifications at the calcifications at T10- R15ozefphp moderate spinal canal stenosisPosterior disc osteophyte at the T11- T12 level causing mild spinal canalstenosisThe spinal cord is normal in caliber and signal intensity. There is no significant foraminal or spinal canal stenosis.2.1 x 2.3 cm left adrenal nodule, incompletely characterizedParaspinal soft tissues are unremarkable.Lumbar spine:Postoperative changes from posterior decompression at the L3 and N4xhktpa. A 1.3 x 1.5 cm (AP by [...] Signed By: Maxim Sultana09/04/2023 08:00 CDTWorkstation Name: [id number] 07:46:14 * Test Item Value Reference Range Interpretation Comme nts FERRITIN (BEAKER) (test code = 361) 31.77 ng/mL 5.00-275.00 Estimator Lumber ID - hgIRON, TIBC, % SAT. (WITHOUT FERRITIN)2023-09-04 07:24:52* Test Item Value Reference Range Interpretation Comme nts IRON (BEAKER) (test code = 547) 22.0 ug/dL 40.0-160.0 L TOTAL IRON BINDING CAPACITY (BEAKER) (test code = 769) 369 ug/dL 250-450 IRON % SATURATION (2) (BEAKE R) (test code = 2590) 6 % 20-55 L Estimator Lumber ID - hgCT spine thoracic without IV dlxbwdil6309-53-61 05:42:45EXAM: CT THORACIC SPINE WITHOUT IV CONTRAST, [...] Bones/alignment: Age- indeterminate nondisplaced fracture of the B5oaawjsjqq elements, predominantly involving the lamina and pinusprocess.. [...] Postoperative changes in themidline posterior lumbar soft tissues.[facility] HospitalCT spine lumbar without IV ksegbugn8899-37-69 05:42:45EXAM: CT THORACIC SPINE WITHOUT IV CONTRAST, [...] Bones/alignment: Age- indeterminate nondisplaced fracture of the H3pttkqaaif elements, predominantly involving the lamina and pinusprocess.. [...] Postoperative changes in themidline posterior lumbar soft tissues.[facility] HospitalCT LUMBAR SPINE WITHOUT IV [id number] 05:42:45[facility] : 1970 [...] spine:Bones/alignment: Age- indeterminate nondisplaced fracture of the C9rekjbbbtd elements, predominantly i nvolving the lamina and [...] Signed By: Suzan Weaver09/04/2023 05:45 CDTWorkstation Name: [id number] THORACIC SPINE WITHOUT IV [id number] 05:42:45 [facility]UE HEATHERGRACIELA MCCABE : 1970 [...] spine:Bones/alignment: Age- indeterminate nondisplaced fracture of the P2axbznapja elements, predominantly i nvolving the lamina and [...] Signed By: Suzan Weaver09/04/2023 05:45 CDTWorkstation Name: [id number] 2023-09-04 04:44:34* Test Item Value Reference Range Interpretation Comme nts FIBRINOGEN LEVEL (BEAKER) (t est code = 658) 410 mg/dl 225-434 Urinalysis without Dcenggznwmt3555-33-54 03:58:52* Test Item Value Reference Range Interpretation Comme nts Color, UA (test code = 5778-6) Light Yellow Clarity, UA (test code = 5767-9) Hazy Specific [place], UA (test code = 5811-5) 1.017 1.001-1.035 pH, UA (test code = 5803-2) 6 5.0-8.0 Protein, UA (test code = 31951-3) 10 mg/dL Negative A Glucose, UA (test code = 365) Negative Negative Ketones, UA (test code = 2514-8) Trace Negative A Bilirubin, UA (test code = 89359-7) Negative Negative Blood, UA (test code = 47054-1) Trace Negative A Nitrite, UA (test code = 5802-4) Negative Negative Leukocytes, UA (test code = 5799-2) Negative Negative Urobilinogen, UA (test code = 97305-4) 0.2 0.2-1.0 Specimen Source (test code = 2795) LYNDSAY (test code = LYNDSAY) Estimator Lumber ID - [auto]Estimator Lumber ID - tech Lab Interpretation (test code = 28529-9) Abnormal [facility]jo[facility]INALYS[facility] WITHOUT IMPULZOWMMA5494-10-92 03:58:52* Test Item Value Reference Range Interpretation [...] 0.2 0.2-1.0 SOURCE(BEAKER) (test code = 2795) Estimator Lumber ID - [auto]Estimator Lumber ID - techCBC W/PLT COUNT & AUTO [...] 2801) 0.70 % 0.00-1.00 Rapid drug screen, vcliv5729-97-09 02:20:15* Test Item Value Reference Range Interpretation Comme nts Barbiturate Screen (test code = 80626-3) Negative Negative Benzodiazepine Screen (test code = 96147-3) Negative Negative Cocaine (Metab.) Screen (test code = 3397-7) Positive Negative A Methadone Screen (test code = 12376-6) Negative Negative Opiate Screen (test code = 30283-5) Negative Negative Cannabinoid Screen (test code = 93354-8) Positive Negative A Amph/Methamph Screen (test code = 80365-6) Negative Negative Phencyclidine Screen (test code = 62181-0) Negative Negative pH, UA (test code = 5803-2) 6 5.0-8.0 LYNDSAY (test code = LYNDSAY) DRUG CUTOFF CONC.Cocaine 300 ng/mL Cannabinoid 50 ng/mLBenzodiazepine 200 ng/mLBarbiturate 200 ng/mLPhencyclidine 25 ng/mLOpiate 300 ng/mLMethadone 300 ng/mLAmphetamine/ 1000 ng/mL Methamphetamine This assay provides an unconfirmed qualitative test result for the clinical management of patients in emergency situations. Chain of custody not maintained. Some evkj-eye-fsrqnop medications, as well as adulterants, may cause inaccurate results. Clinical correlation should be applied. A more comprehensive drug screen or confirmation of a detected drug may be performed upon request.Estimator Lumber ID - ADMIN Lab Interpretation (test code = 59963-0) Abnormal [facility]joRAPID DRUG SCREEN, [id number] 02:20:15* Test Item Value Reference Range Interpretation [...] situations. Chain of custody not maintained. Some wvtw-kuj-shsxwaa medications, as well asadulterants, may cause inaccurate results. Clinical correlation should be applied. A more comprehensive drug screen or confirmation of a detected drug may be performed upon request.Estimator Lumber ID - ADMINB-TYPE NATRIURETIC FACTOR (BNP)2023-09-04 02:11:53* Test Item Value Reference Range Interpretation Comme nts B-TYPE NATRIURETIC PEPTIDE (BEAKER) (test code = 700) 1761 pg/mL 0-100 H Estimator Lumber ID - ADMINLACTIC ACID, OYFRSA4316-52-68 02:10:37* Test Item Value Reference Range Interpretation Comme nts LACTATE BLOOD VENOUS (2) (BEAKER) (test code = 2872) 1.04 mmol/L 0.50-2.00 Specimen slightl y hemolyzed Estimator Lumber ID - NSVYYYBCOXABJZP7657-35-54 02:04:37* Test Item Value Reference Range Interpretation Comme nts PHOSPHORUS (BEAKER) (test code = 604) 4.2 mg/dL 2.3-4.7 Specimen sligh tly hemolyzed Estimator Lumber ID - ADMINCOMPREHENSIVE METABOLIC WAJGG8826-43-97 02:04:37* Test Item Value Reference Range Interpretation [...] GFR is not applicable for dialysis patients Estimator Lumber ID - AWDAYOTCVPECTY4249-58-46 02:04:36* Test Item Value Reference Range Interpretation Comme nts MAGNESIUM (LATOYA) (test code = 627) 2.1 mg/dL 1.6-2.6 Specimen sligh tly hemolyzed Estimator Lumber ID - WYPPUT-FKPNM1177-15-16 01:45:13* Test Item Value Reference Range Interpretation [...] code = 760) 28.5 seconds 22.5-36.0 PROTHROMBIN TIME/AVS6214-13-41 01:42:15* Test Item Value Reference Range Interpretation Comme nts PROTIME (LATOYA) (test code = 759) 15.8 seconds 11.9-14.2 H INR (LATOYA) (test code = 370) 1.25 <=5.90 RECOMMENDED COUMADIN/WARFARIN INR THERAPY RANGESSTANDARD DOSE: 2.0 - 3.0 Includes: PROPHYLAXIS for venous thrombosis, systemic embolization; TREATMENT for venous thrombosis and/or pulmonary embolus.HIGH RISK: Target INR is 2.5-3.5 for patients with mechanical heart valves.EEZ-VTTWLQS5545-08-16 00:00:00Ordered by an unspecified provider.[facility]cin[facility] HospitalLactic Acid Whole Blood 2023-08-12 20:51:22* Test Item Value Reference Range Interpretation Comme nts LACTIC ACID (test code = 2749866371) 1.56 mmol/L 0.50-2.20 Lab Interpretation (test cod e = 18518-6) Normal [facility] RockBLO[facility] AERMCEY9084-65-37 07:00:09* Test Item Value Reference Range Interpretation Comme nts CULTURE (BEAKER) (test code = 1095) No growth in 5 days T-SPOT(R).QZ7403-98-15 18:35:00* Test Item Value Reference Range Interpretation Comme nts T-SPOT.TB (test code = 8293271) Negative SeeBelow Normal Value: Ne gativeA negative [...] CORRECTED FOR NEG CONTROL (test code = 9713212) 1 PANEL B SPOT COUNT CORRECTED FOR NEG CONTROL (test code = 0227587) 0 NEGATIVE CONTROL (test code = 5349144) Passed POSITIVE CONTROL (test code = 1597140) Passed LYNDSAY (test code = LYNDSAY) [id number] [facility] HospitalT-SPOT(R).SH7384-90-13 18:35:00* Test Item Value Reference Range Interpretation Comme nts T-SPOT.TB (test code = 43249-0) Negative SeeBelow Normal Value: Ne gativeA negative [...] CORRECTED FOR NEG CONTROL (test code = 10273-8) 0 NEGATIVE CONTROL (test code = 03542-6) Passed POSITIVE CONTROL (test code = 68503-6) Passed LYNDSAY (test code = LYNDSAY) [id number] [facility] HospitalTransesophageal iies6206-65-85 13:41:18 Transesophageal Echocardiography Report (CHETAN) Demographics Patient Name YUE ROMERO Date of Study 06/16/2023 [place] Gender Female Visit Number [id number] Race Room Number 1055 Number Date of 1970 Referring Physician Age 53 year(s) Yardmaster Interpreting Physician Brian MDProcedure Type of Study [...] Tricuspid Valve Partially visualized. Pulmonic Valve Not visualized.[facility] HospitalTransesophageal echo 2023-06-16 13:41:18Transesophageal Echocardiography Report (CHETAN) Demographics Patient Name YUE ROMERO Date of Study 06/16/2023 [place] Gender Female Visit Number [id number] Race Room Number 1055 Number Date of 1970 Referring Physician Age 53 year(s) Yardmaster Interpreting Physician Brian MDProcedure Type of Study [...] Tricuspid Valve Partially visualized. Pulmonic Valve Not visualized.[facility] HospitalMRSA zeqsso6346-41-78 09:55:41* Test Item Value Reference Range Interpretation Comme nts Result (test code = 6463-4) No MRSA isolated [facility] HospitalMRSA [id number] 09:55:41* Test Item Value Reference Range Interpretation Comme nts CULTURE ([employer]) (test code = 1095) No MRSA isolated CRYPTOCOCCAL MUMYCCV2812-14-16 15:50:36* Test Item Value Reference Range Interpretation Comme nts CRYPTOCOCCAL ANTIGEN, SERUM ([employer]) (test code = 1828) Negative Negative, Interference SPUTUM CULTURE + GRAM [id number] 10:30:11* Test Item Value Reference Range Interpretation Comme nts CULTURE ([employer]) (test code = 1095) PSEUDOMONAS AERUGINOSA A [...] GRAM STAIN RESULT (BEAKER) (test code = 933796) 10-15 epithelial cells GRAM STAIN RESULT (BEAKER) (test code = 612168) 2+ gram positive cocci in chains and pairs GRAM STAIN RESULT (BEAKER) (test code = 745687) 1+ gram negative rods GRAM STAIN RESULT (BEAKER) (test code = 841960) 1+ yeast 2+ Normal respiratory rebel presentVANCOMYCIN LEVEL, [id number] 06:41:26* Test Item Value Reference Range Interpretation Comme nts VANCOMYCIN TROUGH (BEAKER) ( test code = 522) 17.0 ug/mL 10.0-20.0 Estimator Lumber ID - ADMINECHO W CONTRAST & TJUFOWM5179-95-27 13:44:03Transthoracic Echocardiography Report (TTE) Demographics Patient Name YUE ROMERO Date of Study 06/14/2023 [place] Gender Female Visit Number [id number] Race Room Number 1055 Number Date of 1970 Referring Aydee Go MD Physician Age 53 year(s) Yardmaster James Albarran RDCS Interpreting Physician Brian MDProcedure [...] m/s Peak Gradient: 2.89 mmHgCHI [facility]ist Health VallejoECHO W CONTRAST & [id number] 13:44:03Transthoracic Echocardiography Report (TTE) Demographics Patient Name YUE ROMERO Date of Study 06/14/2023 [place] Gender Female Visit Number [id number] Race Room Number 1055 Number Date of 1970 Referring Aydee Go MD Physician Age 53 year(s) Yardmaster James Albarran RDCS Interpreting Physician Brian MDProcedure [...] m/s Peak Gradient: 2.89 mmHgCHI [facility] Health VallejoHEMOGLOBIN A1C 2023-06-14 09:26:42* Test Item Value Reference Range Interpretation Comme nts HEMOGLOBIN A1C ELECTROPHORESIS (BEAKER) (test code = 3811) 6.7 % See_Comment H [Automated me ssage] The system which generated this result transmitted reference range: <=5.6%. The reference range was not used to interpret this result as normal/abnormal. "The A1c is measured using a [facility]-certified method. HbA1c value equal to or greater than 6.5% as the diagnosis cutoff for diabetes. An HbA1c value of 5.7- 6.4% indicates increased risk for diabetes (prediabetes)."Estimator Lumber ID - ADMOperator ID - ADMECG 12 [id number] 09:06:12Ventricular Rate 97 BPMAtrial Rate 97 BPMP-R Interval 146 msQRS Duration 96 msQ-T Interval 378 msQTC Calculation(Bazett) 480 msP [place] 68 degreesR [place] 107 degreesT [place] 18 degrees Suspect arm leadreversal, interpretation assumes no reversalNormal sinus rhythmRightward axisNonspecific T wave abnormalityAbnormal ECGWhen compared with ECG of 30-MAR-2023 13:06,QRS axis Shifted rightConfirmed by Luis Lopez ([id number]) on 06/14/2023 9:06:07 [facility] [id number] 09:06:12Ventricular Rate 97 BPMAtrial Rate 97 BPMP-R Interval 146 msQRS Duration 96 msQ-T Interval 378 msQTC Calculation(Bazett) 480 msP [place] 68 degreesR [place] 107 degreesT [place] 18 degrees Suspect arm leadreversal, interpretation assumes no reversalNormal sinus rhythmRightward axisNonspecific T wave abno rmalityAbnormal ECGWhen compared with ECG of 30-MAR-2023 13:06,QRS axis Shifted rightConfirmed by Luis Lopez ([id number]) on 06/14/2023 9:06:07 [facility] HospitalBASIC METABOLIC [id number] 04:48:18* Test Item Value Reference Range Interpretation [...] GFR is not applicable for dialysis patients Estimator Lumber ID - ADMINCBC (HEMOGRAM ONLY)2023-06-14 04:22:50* Test [...] 413) 0 /100 WBC 0-0 Strep pneumoniae nzsnirk3611-12-95 23:34:41* Test Item Value Reference Range Interpretation Comme nts Strep pneumoniae Antigen (test code = 84097-2) Presumptive negative for pneumococcal pneumonia - see [...] the test. Lab Interpretation (test code = 05248-0) [facility] DiegoTREP PNEUMONIAE [id number] 23:34:41* Test Item Value Reference Range Interpretation [...] detection limit of the test. Legionella antigen, xkbjl3573-55-01 23:29:07* Test Item Value Reference Range Interpretation Comme nts Legionella Urine Antigen (test code = 42266-1) Negative - see comment Negative Negative for L. pneumophila serogroup 1 antigen, suggesting no recent or current infection with this serogroup. Legionellosis cannot be ruled out since other serogroups and species may cause disease. Lab Interpretation (test code = 03603-2) Normal [facility] HospitalLEGIONELLA ANTIGEN, [id number] 23:29:07* Test Item Value Reference Range Interpretation Comme nts L. PNEUMOPHILA SEROGP 1 UR AG (BEAKER) (test code = 1156) Negative - see comment Negative Negative for L. pneumophila serogroup 1 antigen, suggesting no recent or current infection with this serogroup. Legionellosis cannot be ruled out since other serogroups and species may cause disease. Venous doppler arm, krru0271-25-48 20:05:32PV LAB - Upper Extremities Veins Demographics Patient Name YUE ROMERO Date of Study 06/13/2023 [place] Age 53 Visit Number [id number] Gender Female Accession Number [id number] Date of 1970 Referring Marianela Collazo Room Number 1055 Physician Yardmaster Lisa Ruiz Interpreting John Solorio, Physician FellowProcedureType [...] Diameters are measured [facility] FranciscoVenous doppler arm, [id number] 20:05:32PV LAB - Upper Extremities Veins Demographics Patient Name YUE ROMERO Date of Study 06/13/2023 [place] Age 53 Visit Number [id number] Gender Female Accession Number [id number] Date of 1970 Referring Marianela Collazo Room Number 1055 Physician Yardmaster Lisa Ruiz Interpreting John Solorio, Physician FellowProcedureType [...] [facility] FranciscoHIV-1 ANTIGEN WITH HIV-1/2 [id number] 18:36:40* Test Item Value Reference Range Interpretation Comme nts HIV-1 ANTIGEN WITH HIV 1\\T\\2 ANTIBODY (2) (LATOYA) (test code = 2586) Nonreactive Nonreactive MR lumbar spine without & with IV xrucyyyd4504-44-80 14:53:29MR LUMBAR SPINE WITH & WITHOUT IV [...] x 1.7x 1.7 cm. Dorsal paraspinal musculature V7ahffiaoavxsyre. Postcontrast imaging demonstrates mild peripheralenhancement of the dorsal paraspinal fluid collection. Left adrenalgland 2.9 cm nodule.[facility] HospitalMR lumbar spine without & with IV sirxmwnt7048-64-30 14:53:29MR LUMBAR SPINE WITH & WITHOUT IV [...] x 1.7x 1.7 cm. Dorsal paraspinal musculature A0tvyvaifsowvdzr. Postcontrast imaging demonstrates mild peripheralenhancement of the dorsal paraspinal fluid collection. Left adrenalgland 2.9 cm nodule.[facility] HospitalMR LUMBAR SPINE WITH & WITHOUT IV [id number] 14:53:29[facility] 1970 [...] 1.7 x 1.7 cm. Dorsal paraspinal musculature G4bidiusniuozwiq. Postcontrast imaging demonstrates mild peripheralenhancement of the [...] Signed By: Ryan Buckley06/13/2023 14:55 CDTWorkstation Name: [id number] KINASE (CK)2023-06-13 11:54:02* Test Item Value Reference Range Interpretation Comme nts CREATINE KINASE TOTAL (BEAKE R) (test code = 380) 43 U/L 29-200 Estimator Lumber ID - ADMINCOMPREHENSIVE METABOLIC [id number] 06:48:22* Test Item Value Reference Range Interpretation [...] GFR is not applicable for dialysis patients Estimator Lumber ID - ADMINPROTHROMBIN TIME/JPD4213-81-89 06:40:01* Test Item Value Reference Range Interpretation [...] code = 2801) 1.70 % 0.00-1.00 H [id number] 05:26:09* Test Item Value Reference Range Interpretation Comme nts MAGNESIUM (BEAKER) (test cod e = 627) 2.0 mg/dL 1.6-2.6 Estimator Lumber ID - FETZHONQWNTXQQT0643-10-66 05:26:09* Test Item Value Reference Range Interpretation Comme nts PHOSPHORUS (BEAKER) (test co de = 604) 3.5 mg/dL 2.3-4.7 Estimator Lumber ID - ADMINBASIC METABOLIC [id number] 05:26:08* Test Item Value Reference Range Interpretation [...] GFR is not applicable for dialysis patients Estimator Lumber ID - ADMINCBC W/PLT COUNT & AUTO [id number] 05:11:15* Test Item Value Reference Range Interpretation [...] 0.70 % 0.00-1.00 XR spine lumbar 1 dypx2356-59-10 10:32:20XR SPINE LUMBAR 1 VIEW CLINICAL INDICATION: L3-4 LAMINECTOMY [facility] 1 [id number] 10:32:20XR SPINE LUMBAR 1 VIEW CLINICAL INDICATION: L3-4 LAMINECTOMY COMPARISON[facility]XR [facility] 2023-06-01 10:32:20 [facility] [place] : 1970 Sex: FXR SPINE LUMBAR 1 VIEWCLINICAL INDICATION: L3-4 LAMINECTOMYCOMPARISON: NoneIMPRESSION:A single lateral view of the lumbar spine is obtained intraoperatively.The posterior approach surgical instrument is seen at the L3-L4 level,inferior to the L3 spinous process. Results were communicated to , who concurred with the above findings. Electronically Signed By: Maxim Ramos08/01/2022 10:34 CDTWo rkstation Name: [id number] SPINE LUMBAR 1 [id number] 10:29:18 [facility] : 1970 [...] Signed By: Maxim Ramos08/01/2022 10:31 CDTWorkstation Name: [id number] Screen, blmls9696-71-82 05:32:52* Test Item Value Reference Range Interpretation Comme nts Preg Test, Ur (test code = 2112-1) Negative Negative Lab Interpretation (test cod e = 31222-8) Normal [facility] HospitalPREGNANCY SCREEN, [id number] 05:32:52* Test Item Value Reference Range Interpretation Comme nts TEST URINE (BEAKER ) (test code = 583) Negative Negative BASIC METABOLIC POVIE5626-72-72 23:30:54* Test Item Value Reference Range Interpretation [...] GFR is not applicable for dialysis patients Estimator Lumber ID - ADMINPT/QPJF8162-16-22 23:15:33* Test Item Value Reference Range Interpretation [...] H CT neck soft tissue without IV vhpfyecz3262-88-51 13:45:22EXAM: CT NECK SOFT TISSUE WITHOUT IV [...] Postoperative changes from anterior cervical discectomy fusionat C3-X7Mfozsbsu Lung Apices: NormalCHI [facility] Health VallejoCT neck soft tissue without IV gubdnmjm5738-69-89 13:45:22EXAM: CT NECK SOFT TISSUE WITHOUT IV [...] Postoperative changes from anterior cervical discectomy fusionat C3-V1Xyryhhtz Lung Apices: NormalCHI [facility] Health VallejoCT NECK SOFT TISSUE WITHOUT IV PSIPCVFL6542-46-10 13:45:22 [facility] : 1970 Sex: [...] Postoperative changes from anterior cervical discectomy fusionat C3-G4Ajvudjti Lung Apices: NormalIMPRESSION:Exam limited by lack of intravenous contrast.1. 1.8 x 2.9 x 1.3 cm ill-defined fluid collection in the leftanterolateral neck soft tissues, suggesting evolving postoperativehemorrhage. Superimposed infection is not ex cluded.2. Retropharyngeal fluid and air measuring up to 0.8 cm in thickness,favored to be present postoperative right frontal edema. Superimposedinfection is not excluded.3. Postoperative changes from ACDF at C3- D1Ylyuwivpcnryvm Signed By: Maxim Ramos07/31/2022 13:47 CDTWorkstation Name: [id number] METABOLIC [id number] 08:13:13* Test Item Value Reference Range Interpretation [...] GFR is not applicable for dialysis patients Estimator Lumber ID - BVCBC W/PLT COUNT & AUTO [id number] 07:46:31* Test Item Value Reference Range Interpretation [...] 0.00-1.00 XR spine cervical 2 or 3 [id number] 20:24:23TECHNIQUE: Frontal and lateral views of the cervical spine. INDICATION: Postop Standing Films. COMPARISON: None.[facility] HospitalXR spine cervical 2 or 3 dyrod4219-85-80 20:24:23TECHNIQUE: Frontal and lateral views of the cervical spine. INDICATION: Postop Standing Films. COMPARISON: None.[facility] HospitalXR SPINE CERVICAL 2 OR 3 [id number] 20:24:23 [facility] : 1970 [...] Signed By: Zachariah Garcia05/28/2023 20:26 CDTWorkstation Name: [id number] fluoro non-specific up to 1 hour 2023-05-28 11:45:16This is a non-reportable study with no Radiologist dictation. Please refer to your PACS to review images, or Doc Flowsheets for documentation on studies without images.[facility] HospitalFL fluoro non-specific up to 1 bkug4028-86-60 11:45:16This is a non-reportable study with no Radiologist dictation. Please refer to your PACS to review images, or Doc Flowsheets for documentation on studies without images.[facility] HospitalFL FLUORO NON-SPECIFIC UP TO 1 [id number] 11:45:16 [facility] : 1970 Sex: FThis is a non- reportable study with no Radiologist dictation. Please refer to your PACS to review images, or Doc Flowsheets for documentation on studies without images.FL FLUORO NON-SPECIFIC UP TO 1 [id number] 10:13:02 [facility] : 1970 Sex: FTECHNIQUE: 1 lateral fluoroscopic image of the cervical spine forlocalization.Fluoroscopic time: 3second(s).FINDINGS:The surgical pointer is at C3-C4.The findings were discussed with Dr. Garcia in theOR who concurred withthe findings.IMPRESSION:Intraoperative localization plain film as described abo ve.Electronically Signed By: Derik Reyez05/28/2023 10:15 CDTWorkstation Name: [id number], QUANTITATIVE, [id number] 08:21:03* Test Item Value Reference Range Interpretation Comme nts GONADOTROPIN, CHORIONIC (HCG ) QUANT (BEAKER) (test code = 649) < mIU/mL 0-10 Non- Females: <10 mIU/mL Females: Gestation Age Reference Range(mIU/mL) 0.2-1 Week 5-50 1-2 Weeks 50-500 2-3 Weeks 100-5,000 3-4 Weeks 500-10,000 4-5 Weeks 1,000-50,000 5-6 Weeks 10,000-100,000 6-8 Weeks 15,000- 200,000 2-3 Months 10,000-100,000 Estimator Lumber ID - ADMINCULTURE, [id number] 09:28:30SPECIMEN NUMBER: [id number] CULTURE, URINE SPECIMEN NUMBER: [id number] SPECIMEN COMMENT: URINE SOURCE: URINE REPORT STATUS: FINAL FINAL REPORT: 05/15/2023 >100,000 CFU/ML UROGENITAL REBEL PRESENT NOCOMMON PATHOGENS UNLESS OTHERWISE INDICATED, ALL TESTING PERFORMED AT [facility] [address] [place] [address] TRACK MECHANIC: JANNY STEINER M.D. CLIA NUMBER [id number] [place]. [id number], [id number] 12:02:50SPECIMEN NUMBER: [id number] CULTURE, URINE SPECIMEN NUMBER: [id number] SOURCE: URINE REPORT STATUS: FINAL FINAL REPORT: 05/13/2023 NO SPECIMEN RECEIVED FOR TESTING. CHARGES DELETED.BASIC METABOLIC [id number] 04:48:43* Test Item Value Reference Range Interpretation Comme nts GLUCOSE (test code = 2217) 117 MG/DL 70-99 H BUN (test code = 2208) 20 MG/DL 6-20 CREATININE (test code = 2214) 0.83 MG/DL 0.60-1.30 eGFR (2020 CKD-EPI) (test co de = 21560) 85 ML/MIN/1.73 >60 SODIUM (test code = [...] 12.7 SECONDS 12.5-14.7 INR (test code = 80743) 0.9 SEE BELOW CURRENT RECOMMENDATIONS ARE FOR AN INR OF 2.0-3.0 FOR ALL PATIENTS ON VITAMIN K ANTAGONISTS, EXCEPT THOSE WITH PROSTHETIC HEART VALVES, FOR WHOM INR OF 2.5-3.5 IS RECOMMENDED. UNLESS OTHERWISE INDICATED, ALL TESTING PERFORMED AT [facility] [address] [place] [address] TRACK MECHANIC: JANNY STEINER M.D. CLIA NUMBER [id number] [facility] [place] [place]. [id number] CBC W/AUTO DIFF WITH [id number] 01:54:17* Test Item Value Reference Range Interpretation [...] = 1065) 0.0 /100 WBC'S See_Comment [Automated [employer] ge] The system which generated this result [...] H ABS NUCLEATED RBCS (test code = 57139) 0.00 K/UL 0.00-0.11 ECG 12 [id number] 14:02:48Ventricular Rate 102 BPMAtrial Rate 102 BPMP-R Interval 146 msQRS Duration 90 msQ-T Interval 372 msQTC Calculation(Bazett) 484 msP [place] 11 degreesR [place] -53 degreesT [place] 29 degrees Sinus tachycardiaPossible Left atrial enlargementLeft axis deviationPoor R wave progression Cannot rule out Anterior infarct , age undetermined vs lead misplacementNonspecific T wave abnormalityProlonged QTAbnormal ECGNo previous ECGs availableConfirmed by David GARCIA, KYLE ([id number]) on 04/06/2023 2:02:46 [facility] & [id number] 13:11:39Transthoracic Echocardiography Report (TTE) Demographics Patient Name YUE ROMERO Date of Study 03/31/2023 [place] Gender Female Visit Number [id number] Race Room Number 2227 Number Date of 1970 Referring Physician Mariah Aldridge MD Age 53year(s) Yardmaster Wilmer Francois Diamond Wheel Molder Josefina Corbett, [facility] Interpreting Physician Melody MDProcedure Type of [...] m/s Peak Gradient: 2.22 mmHgCHI [facility] Health VallejoECHO W CONTRAST & DOPPLER 2023-04-02 13:11:39Transthoracic Echocardiography Report (TTE) Demographics Patient Name YUE ROMERO Date of Study 03/31/2023 [place] Gender Female Visit Number [id number] Race Room Number 2227 Number Date of 1970 Referring Physician Mariah Aldridge MD Age 53 year(s) Yardmaster Wilmer Francois Diamond Wheel Molder Josefina Corbett, [facility] Interpreting Physician Melody MDProcedure Type of [...] Peak Velocity:0.74 m/s Peak Gradient: 2.22 mmHgCHI [facility] VallejoXR chest 1 view portable / [id number] 15:39:07TECHNIQUE: Frontal view of the chest. INDICATION: CHf. COMPARISON: None. FINDINGS: LINES/TUBES: None. HEART AND MEDIASTINUM: Cardiomediastinal contour is within normallimits. LUNGS: The lungs are well inflated and clear. No consolidation orpulmonary edema. PLEURA: No pneumothorax. No significant pleural effusion. SOFT TISSUES AND BONES: Cervical spinal fixation hardware is noted.[facility] HospitalXR chest 1 view portable / [id number] 15:39:07TECHNIQUE: Frontal view of the chest. INDICATION: CHf. COMPARISON: None. FINDINGS: LINES/TUBES: None. HEART AND MEDIASTINUM: Cardiomediastinal contour is within normallimits. LUNGS: The lungs are well inflated and clear. No consolidation orpulmonary edema. PLEURA: No pneumothorax. No significant pleural effusion. SOFT TISSUES AND BONES: Cervical spinal fixation hardware is noted.[facility] HospitalXR CHEST 1 VIEW PORTABLE / [id number] 15:39:07 [facility] 1970 Sex: FTECHNIQUE: Frontal view of the chest.INDICATION: CHf.COMPARISON: None.FINDINGS:LINES/TUBES: None.HE ART AND MEDIASTINUM: Cardiomediastinal contour is within normallimits. LUNGS: The lungs are well inflated and clear. No consolidation orpulmonary edema.PLEURA: No pneumothorax. No significant pleuraleffusion.SOFT TISSUES AND BONES: Cervical spinal fixation hardware is noted.IMPRESSION:No acute card iopulmonary process.Electronically Signed By: Jose Carlos Lebron04/01/2023 15:41 CDTWorkstation Name: [id number] NATRIURETIC FACTOR (BNP)2023-04-01 14:15:07* Test Item Value Reference Range Interpretation Comme nts B-TYPE NATRIURETIC PEPTIDE ( BEAKER) (test code = 700) 192 pg/mL 0-100 H Estimator Lumber ID - ADMINMR spine cervical without IV ysnanoti9617-25-01 11:30:35MRI cervical spine without contrast CLINICAL HISTORY: [...] and paraspinal soft tissues are within normal limits.[facility] HospitalMR CERVICAL SPINE WITHOUT IV [id number] 11:30:35 [facility] HEATHERGRACIELA MCCABE : 1970 [...] Signed By: Maxim Sultana03/31/2023 11:32 CDTWorkstation Name: [id number] METABOLIC [id number] 04:43:14* Test Item Value Reference Range Interpretation [...] GFR is not applicable for dialysis patients Estimator Lumber [facility]ANNA [facility]A [facility] (HEMOGRAM ONLY)2023-03-31 04:20:07* Test Item [...] 0 /100 WBC 0-0 Arterial doppler legs ddjbegmrh1282-01-10 17:44:07PV LAB - Lower Extremity Arterial Duplex Demographics Patient Name YUE ROMERO Date of Study [place] Age 53 Visit Number [id number] Gender Female Accession Number [id number] of 1970 Referring Mariah Aldridge, Room Number 2227 Physician Yardmaster Yovana Akins Interpreting John Solorio, Physician FellowProcedureType [...] + + + + + + !Prox CUSTOMER INSIGHT ANALYST ! !32 ! !Biphasic ! !60.9 ! !Triphasic ! +- + + + + + + + + + !Mid CUSTOMER INSIGHT ANALYST ! !25.9 ! !Biphasic ! !59.7 ! !Triphasic ! + + + + + + + + + + !Dist CUSTOMER INSIGHT ANALYST ! !33.2 ! !Biphasic ! !37.4 ! [...] + + + + +[facility]joArterial doppler legs bjmjfxhov8555-15-99 17:44:07PV LAB - Lower Extremity Arterial Duplex Demographics Patient Name YUE ROMERO Date of Study 03/30/2023 [place] Age 53 Visit Number [id number] Gender Female Accession Number [id number] of 1970 Referring Mariah Freemanneena, Room Number 2227 Physician Yardmaster Yovana Akins Interpreting Jhon Solorio, Physician FellowProcedureType of Study: ExtremitiesArteries: Lower [...] + + + + + + !Prox CUSTOMER INSIGHT ANALYST ! !32 ! !Biphasic ! !60.9 ! !Triphasic ! + + + + + + + + + + !Mid CUSTOMER INSIGHT ANALYST ! !25.9 ! !Biphasic ! !59.7 ! !Triphasic ! + + + + + + + + + + !Dist CUSTOMER INSIGHT ANALYST ! !33.2 ! !Biphasic ! !37.4 ! [...] + + + + +[facility]lejoABI's Only(Ankle/Brachial Index)2023-03-30 17:13:47PV LAB - Lower Extremity Arterial Procedure Demographics Patient Name YUE ROMERO Date of Study 03/30/2023 [place] Age 53 Visit Number [id number] Gender Female Accession Number [id number] Date of 1970 Referring Mariah Aldridge, Room Number 2227 Physician Yardmaster Yovana Akins Interpreting John Solorio, Physician FellowProcedureType [...] Diameters are measured in [facility] Only(Ankle/Brachial Index)2023-03-30 17:13:47PV LAB - Lower Extremity Arterial Procedure Demographics Patient Name YUE ROMERO Date of Study 03/30/2023 [place] Age 53 Visit Number [id number] Gender Female Accession Number [id number] Date of 1970 Referring Mariah Aldridge, Room Number 2227 Physician Yardmaster Yovana Akins Interpreting John Solorio, Physician FellowProcedureType [...] in cm/s ; Diameters are measured in [facility] thoracic spine without IV srfgkxey6409-50-14 12:50:50MR THORACIC SPINE WITHOUT IV CONTRAST INDICATION: [...] and further reported on MRI lumbar spine. [facility] HospitalMR THORACIC SPINE WITHOUT IV YUSXQHXG3572-08-35 12:50:50[facility] : 1970 [...] abnormality. T10-11 moderate right neural foraminal stenosis mwfK08-34 moderate bilateral foraminal stenosis due to facet [...] Signed By: Ryan Buckley03/30/2023 12:52 CDTWorkstation Name: QJHESKZ3LE spine lumbar without IV adceudqr9865-79-12 12:33:57MR LUMBAR SPINE WITHOUT IV CONTRAST INDICATION: Unlisted Reason for ExamConcern for cord compression COMPARISON: None TECHNIQUE: Multiplanar, multisequence MR images of the lumbar spinewithout contrast. FINDINGS: For the purposes of this dictation, the 5 lowermost emvubl-ufcuofjxpsubq-jehx vertebral bodies are labeled L1-L5.Alignment of the [...] to moderatebilateral neural foraminal stenosisCHI [facility] Health VallejoMR LUMBAR SPINE WITHOUT IV [id number] 12:33:57 [facility] : 1970 Sex: FMR LUMBAR SPINE WITHOUT IV CONTRASTINDICATION: Unlisted Reason for ExamConcern for cord compressionCOMPARISON: NoneTECHNIQUE: Multiplanar, multisequence MR images of the lumbar spinewithout contrast. FINDINGS: For the purposes of this dictation, the 5 lowermost qimbbl-udrsdzqopypcu-ajrd vertebral bodies are labeled L1- L5.Alignment of the lumbar spine is within normal limits. Vertebral body height is maintained. Bone marrow edema is seen at the inferior L3 and superior L4 vertebralbodies and bilateral L4 pedicles, favored to be degenerative in nature.Suggestion of a synovial cyst at the cggyuN22-V26 level (series 301image eight).No spinal cord signal [...] flavum buckling versus synovial cyst at the dderkU29-D42 level (series 301image eight). MRI thoracic spine can beconsidered for further evaluation.7. Mild clumping of the cauda equina nerve roots, which is nonspecificbut may represent arachnoiditis. Postcontrast imaging can be consideredfor further evaluation.Electronically Signed By: Maxim Sultana03/30/2023 12:36 CDTWorkstation Name: [id number] [id number] 11:45:01* Test Item Value Reference Range Interpretation [...] 5.7- 6.4% indicates increased risk for diabetes (prediabetes)."Estimator Lumber ID - ADMEEG AWAKE AND QLTWXB2891-04-00 09:57:53Steph Martinez MD 03/30/2023 9:59 AMELECTROENCEPHALOGRAM FOR [facility]' [facility] Type: Inpatient, outpatient, EMUDATE(s) OF EE03/30/23DATE OF REPORT: 03/30/23MRN: [id number] of : 1970EE-1454Start time: 08:36Stop time: 09:23ICD-10: R56.9 CPT Code: 61596 (awake and asleep)HISTORY: 53 y/o female with [...] Steph Elias MD, MPHNeurophysiology/Epilepsy AttendingCHI [facility] EEG AWAKE AND [id number] 09:57:53Steph Martinez MD 03/30/2023 9:59 AMELECTROENCEPHALOGRAM FOR [facility] EEG Type: Inpatient, outpatient, EMUDATE(s) OF EE03/30/23DATE OF REPORT: 03/30/23MRN: [id number] of : 1970EE-1454Start time: 08:36Stop time: 09:23ICD-10: R56.9 CPT Code: 04863 (awake and asleep)HISTORY: 53 y/o female with [...] Steph Elias MD, MPHNeurophysiology/Epilepsy AttendingCH[facility] EEG AWAKE AND [id number] 09:57:53Steph Martinez MD 03/30/2023 9:59 AMELECTROENCEPHALOGRAM FOR [facility] EEG Type: Inpatient, outpatient, EMUDATE(s) OF EE03/30/23DATE OF REPORT: 03/30/23MRN: [id number] of : 1970EE-1454Start time: 08:36Stop time: 09:23ICD-10: R56.9 CPT Code: 68191 (awake and asleep)HISTORY: 53 y/o female with [...] Steph Elias MD, MPHNeurophysiology/Epilepsy AttendingCH[facility] EEG AWAKE AND [id number] 09:57:53Steph Martinez MD 03/30/2023 9:59 AMELECTROENCEPHALOGRAM FOR [facility] Type: Inpatient, outpatient, EMUDATE(s) OF EE03/30/23DATE OF REPORT: 03/30/23MRN: [id number] of : [id number] time: 08:36Stop time: :ICD-10: R56.9 CPT Code: 22472 (awake and asleep)HISTORY: 53 y/o female with [...] Steph Elias MD, MPHNeurophysiology/Epilepsy AttendingCHI [facility] VALPROIC ACID LEVEL, [id number] 09:42:31* Test Item Value Reference Range Interpretation Comme nts VALPROIC ACID TOTAL (BEAKER) (test code = 924) 76 ug/mL 50-100 Therapeutic range for some clinical conditions may be >100 ug/mLUrinalysis w/Microscopic + Reflex to [id number] 08:43:51* Test Item Value Reference Range Interpretation Comme nts Color, UA (test code = 5778-6) Yellow Clarity, UA (test code = 5767-9) Clear Specific [place], UA (test code = 5811-5) 1.033 1.001-1.035 pH, UA (test code = 5803-2) 6.0 5.0-8.0 Protein, UA (test code = 92112-3) 30 mg/dL Negative A Glucose, UA (test code = 365) Negative Negative Ketones, UA (test code = 2514-8) Negative Negative Bilirubin, UA (test code = 08506-2) Negative Negative Blood, UA (test code = 51985-4) Small Negative A Nitrite, UA (test code = 5802-4) Negative Negative Leukocytes, UA (test code = 5799-2) Negative Negative Urobilinogen, UA (test code = 95876-4) 0.2 0.2-1.0 RBC, UA (test code = 27792-2) 51 See_Comment [Automated message] The system which [...] Occasional Squam Epithel, UA (test code = 26700-5) See_Comment [Automated message] The system which generated this result transmitted reference range: /HPF. The reference range was not used to interpret this result as normal/abnormal. Specimen Source (test code = 2795) LYNDSAY (test code = LYNDSAY) Estimator Lumber ID - [auto]Estimator Lumber ID - tech Lab Interpretation (test code = 45923-0) [facility] [id number] 08:43:51 * Test Item Value Reference Range [...] < /HPF SOURCE(BEAKER) (test code = 2795) Estimator Lumber ID - [auto]Estimator Lumber ID - techCOMPREHENSIVE METABOLIC [id number] 04:37:29* Test Item Value Reference Range Interpretation [...] GFR is not applicable for dialysis patients Estimator Lumber ID - MATT BPT/[id number] 04:30:17* Test Item Value Reference Range Interpretation Comme nts PROTIME (BEAKER) (test code = 759) 13.8 seconds 11.9-14.2 INR (BEAKER) (test code = 370) 1.13 See_Comment [Automated [employer]] The system which generated this result transmitted reference range: <=5.90. The reference range was not used to interpret this result as normal/abnormal. PARTIAL THROMBOPLASTIN TIME (BEAKER) (test code = 409) 27.4 seconds 22.5-36.0 RECOMMENDED COUMADIN/WARFARIN INR THERAPY [...] code = 413) 0 /100 WBC 0-0 [id number]-[id number] 00:00:00Ordered by an unspecified provider.[facility]MAG[facility] 17:14:06* Test Item Value Reference Range Interpretation Comme nts MAGNESIUM (test code = 0433320310) 1.9 mg/dL 1.7-2.4 Lab Interpretation (test cod e = 27724-0) [facility] METABOLIC PANEL (37601)2022-12-11 15:16:25* Test Item Value Reference Range Interpretation Comme nts NA (test code = 9137113612) 139 mmol/L 135-145 K (test code = 1151093640) 3.5 mmol/L 3.5-5.0 CL (test code = 5307384793) 107 mmol/L 98-108 CO2 TOTAL (test code = 9563140345) 24 mmol/L 23-31 AGAP (test code = 3472379150) 8 2-16 BUN (test code = 3894691078) 9 mg/dL 7-23 GLUCOSE (test code = 3071967834) 129 mg/dL 70-110 H CREATININE (test code = 9241331937) 0.68 mg/dL 0.50-1.04 TOTAL BILI (test code = 9757208242) 0.5 mg/dL 0.1-1.1 CALCIUM (test code = 4388258192) 8.9 mg/dL 8.6-10.6 T PROTEIN (test code = 5831978409) 6.3 g/dL 6.3-8.2 ALBUMIN (test code = 3719324952) 3.8 g/dL 3.5-5.0 ALK PHOS (test code = 0118313727) 87 U/L 34-122 ALTv (test code = 1742-6) 24 U/L 5-35 AST(SGOT) (test code = 6253885492) 21 U/L 13-40 eGFR (test code = 3259249718) 91.6 mL/min/1.73m2 LYNDSAY (test code = LYNDSAY) [...] imaging tests). Lab Interpretation (test code = 49430-9) Abnormal [facility] RockTROPONIN [id number] 15:10:45* Test Item Value Reference Range Interpretation Comme nts TROPONIN I (test code = 5145255652) 0.015 ng/mL <=0.034 LYNDSAY (test code = [...] of biotin. Lab Interpretation (test code = 11545-5) Normal [facility] RockN-TERMINAL PNN-[id number] 15:07:48* Test Item Value Reference Range Interpretation Comme nts NT-proBNP (test code = 5333550224) 1460 pg/mL <=125 H LYNDSAY (test code = LYNDSAY) Biotin has been reported to cause a negative bias, interpret results relative to patient's use of biotin. Lab Interpretation (test code = 52028-7) Abnormal [facility] RockD-XEVXT5201-57-22 14:45:24* Test Item Value Reference Range Interpretation Comments D-DIMER (test code = 2363995809) 0.99 See_Comment H [Automated message] The system [...] a diagnosis. Lab Interpretation (test code = 82336-1) Abnormal [facility] WITH [id number] 14:14:48* Test Item Value Reference Range Interpretation Comme nts WBC (test code = 6690-2) 7.86 See_Comment [Automated [employer]] The system which generated this result transmitted reference range: 4.30 - 11.10 10*3/?L. The reference range was not used to interpret this result as normal/abnormal. RBC (test code = 789-8) 5.13 See_Comment [Automated [employer]] The system which generated this result transmitted [...] g/dL 31.6-35.1 L RDW-SD (test code = 38797-2) 47.8 fL 39.0-49.9 RDW-CV (test code = 788-0) 16.9 % 12.0-15.5 H PLT (test code = 777-3) 507 See_Comment H [Automated messa ge] The system which generated this result transmitted reference range: 166 - 358 10*3/?L. The reference range was not used to interpret this result as normal/abnormal. MPV (test code = 94672-3) 8.2 fL 9.5-12.9 L NRBC/100 WBC (test code = 5680295397) 0.0 See_Comment [Automated me ssage] The system which generated this result transmitted reference range: 0.0 - 10.0 /100 WBCs. The reference range was not used to interpret this result as normal/abnormal. NRBC x10^3 (test code = 9880371603) See_Comment [Automated messa ge] The system which generated this result transmitted reference range: 10*3/?L. The reference range was not used to interpret this result as normal/abnormal. GRAN MAT (NEUT) % (test code = 770-8) 64.5 % IMM GRAN % (test code = 0648897892) 0.30 % LYMPH % (test code = 736-9) 25.6 % MONO % (test code = 5905-5) 7.5 % EOS % (test code = 713-8) 1.0 % BASO % (test code = 706-2) 1.1 % GRAN MAT x10^3(ANC) (test code = 5020474945) 5.07 10*3/uL 1.88-7.09 IMM GRAN x10^3 (test code = 2529116656) 0.00-0.06 LYMPH x10^3 (test code = 731-0) 2.01 10*3/uL 1.32-3.29 MONO x10^3 (test code = 742-7) 0.59 10*3/uL 0.33-0.92 EOS x10^3 (test code = 711-2) 0.08 10*3/uL 0.03-0.39 BASO x10^3 (test code = 704-7) 0.09 10*3/uL 0.01-0.07 H Lab Interpretation (test code = 25493-8) Abnormal [facility] RockRPR2023-01-17 13:17:22* Test Item Value Reference Range Interpretation Comme nts RPR SCREEN (BEAKER) (test co de = 420) Nonreactive Nonreactive HEMOGLOBIN [id number] 10:39:49* Test Item Value Reference Range Interpretation Comme nts HEMOGLOBIN A1C ELECTROPHORESIS (LATOYA) (test code = 3811) 5.8 % See_Comment H [Automated me ssage] The system which generated this result transmitted reference range: <=5.6%. The reference range was not used to interpret this result as normal/abnormal. "The A1c is measured using a [facility]-certified method. HbA1c value equal to or greater than 6.5% as the diagnosis cutoff for diabetes. An HbA1c value of 5.7- 6.4% indicates increased risk for diabetes (prediabetes)."Estimator Lumber ID - ADM VITAMIN [id number] 22:48:27* Test Item Value Reference Range Interpretation Comme nts VITAMIN B12 (LATOYA) (test c ode = 774) 227 pg/mL 213-816 Estimator Lumber ID - MARCOTSH/FREE T4 IF [id number] 22:08:28* Test Item Value Reference Range Interpretation Comme nts THYROID STIMULATING HORMONE (LINNEAAKER) (test code = 772) 3.309 uIU/mL 0.350-4.940 Estimator Lumber ID - JSHIV-1 ANTIGEN WITH HIV-1/2 [id number] 22:08:28* Test Item Value Reference Range Interpretation Comme nts HIV-1 ANTIGEN WITH HIV 1\\T\\2 ANTIBODY (2) (LINNEAAKER) (test code = 2586) Nonreactive Nonreactive Estimator Lumber ID - JSC-REACTIVE NWCMQBN3234-07-41 21:49:44* Test Item Value Reference Range Interpretation Comme nts C-REACTIVE PROTEIN (BEAKER) (test code = 676) 0.35 mg/dL 0.00-0.50 Estimator Lumber ID - JSCOMPREHENSIVE METABOLIC [id number] 21:49:43* Test Item Value Reference Range Interpretation [...] GFR is not applicable for dialysis patients Estimator Lumber ID - JSLIPID [id number] 21:49:43* Test Item Value Reference Range Interpretation [...] Borderline 130-159 High 160-189 Very High >=190 Estimator Lumber ID - JSCBC W/PLT COUNT & AUTO [id number] 21:34:03* Test Item Value Reference Range Interpretation [...] Interpretation Comme nts Height (test code = 0686946485) in Weight (test code = 9182924603) lbs Systolic BP (test code = 1038701942) mmHg Diastolic BP (test code = 0088197736) mmHg Heart Rate (test code = 0361546862) bpm BSA (test code = 8786528640) 2.00 m2 Ao root diam (test code = 2904064922) 3.20 cm Aortic root (test code = 5887897991) 3.2 cm Ao root annulus (test code = 2763091923) 3.2 cm LVOT diameter (test code = 0705930966) 1.99 cm LVOT area (test code = 5680597319) 3.10 cm2 LVIDD (test code = 8702230083) 5.10 cm Left Ventricular End Diastolic Volume by Teichholz Method (test code = 1194081) 123.0 mL IVS (test code = 4425765590) 1.34 cm Interventricular Septum Diastolic Thickness by 2D (test code = 3211354) 1.34 cm LVPWD (test code = 6358763497) 1.34 cm PW (test code = 7285216062) 1.34 cm 0.6-1.1 EF(Teich) (test code = 8240448406) 41.80 % LVIDS (test code = 8610657075) 4.00 cm Left Ventricular End Systolic Volume by Teichholz Method (test code = 6572881) 71.5 mL FS (test code = 5741002338) 21 % EF - 2D (test code = 99209485) 41.80 % LA size (test code = 8362026590) 4.6 cm Pulmonic Regurgitant End Max Velocity (test code = 2594564608) 119.4 cm/s LAV(MOD-sp4) (test code = 3918338834) 95.00 mL E wave decelartion time (test code = 8808931341) 0.15 s MV stenosis pressure 1/2 time (test code = 5044988167) 45.6 ms MV Peak A Evette (test code = 0032481539) 123.8 cm/s MV Peak E Evette (test code = 8661776587) 109.7 cm/s E/A ratio (test code = 6650235703) ratio MR max PG (test code = 0003643601) 87.20 mm[Hg] MR max evette (test code = 2850166965) 466.90 cm/s Mr max evette (test code = 8128290295) 466.9 m/s MV Prop V (test code = 7909522577) 51.00 cm/s MV E/e' septal (test code = 4312082027) 8.1 cm/s Tapse (test code = 9009463751) 2.21 cm LVOT stroke volume (test code = 2732486976) 49.80 cm3 LVOT peak evette (test code = 1221859467) 89.1 cm/s LVOT mn grad (test code = 2211524752) mmHg AV LVOT peak gradient (test code = 3429352496) mmHg LVOT peak VTI (test code = 8270709233) 16.0 cm LV V1 mean (test code = 1321354152) 64.30 cm/s Aortic valve mean velocity (test code = 5556659447) 133.8 cm/s Ao peak evette (test code = 1353189301) 175.3 cm/s Ao VTI (test code = 9182503813) 32.2 cm AV area by cont VTI (test code = 7117603150) 1.6 cm2 AV area peak evette (test code = 4050200729) 1.6 cm2 Ao max PG (test code = 1392135494) 12.30 mm[Hg] AV peak gradient (test code = 4886140569) mmHg AV valve area (test code = 3336154066) 1.55 cm2 AV mean gradient (test code = 6157273843) mmHg AV regurgitation pressure 1/2 time (test code = 2810573082) 358.5 ms AI dec slope (test code = 2679833926) 364.20 cm/s2 AI max evette (test code = 8102949036) 445.80 cm/s AI max PG (test code = 2952832298) 79.50 mm[Hg] Radiology Study observation (narrative) (test code = 61321-0) LYNDSAY (test code = LYNDSAY) ?Left?Ventricle: Left [facility]2022-08-01 10:43:32* Test Item Value Reference Range Interpretation Comme [facility] POCT GLU (test code = 4891356582) 148 mg/dL 70-110 H Lab Interpretation (test cod e = 31195-5) Abnormal [facility] RockACTIVATED PARTIAL THRMPLAS [id number] 18:39:45* Test Item Value Reference Range Interpretation Comme [facility] APTT Patient (test code = 3173-2) See_Comment [Automated message] The system which generated this result transmitted reference range: 23 - 38 Seconds. The reference range was not used to interpret this result as normal/abnormal. LYNDSAY (test code = LYNDSAY) The [facility] patient population mean normal value for aPTT is 30 seconds. Lab Interpretation (test code = 88331-7) Normal [facility] RockPROTHROMBIN TIME / [id number] 18:37:42* Test Item Value Reference Range Interpretation [...] the indications. Lab Interpretation (test code = 70114-7) Normal [facility] RockTROPONIN [id number] 18:32:01* Test Item Value Reference Range Interpretation Comments TROPONIN I (test code = 6958672604) 0.019 ng/mL See_Comment [Automated message] The system [...] of biotin. Lab Interpretation (test code = 31715-2) Normal [facility] RockN-TERMINAL SEK-[id number] 18:29:01* Test Item Value Reference Range Interpretation Comme nts NT-proBNP (test code = 6551617308) 2770 pg/mL See_Comment H [Automated message] The system which generated this result transmitted reference range: <=125. The reference range was not used to interpret this result as normal/abnormal. LYNDSAY (test code = LYNDSAY) Biotin has been reported to cause a negative bias, interpret results relative to patient's use of biotin. Lab Interpretation (test code = 09076-2) Abnormal [facility]. METABOLIC PANEL (33835)2022-07-31 18:21:42* Test Item Value Reference Range Interpretation Comme nts NA (test code = 7885550327) 136 mmol/L 135-145 K (test code = 5891907360) 4.6 mmol/L 3.5-5.0 CL (test code = 6780578145) 104 mmol/L 98-108 CO2 TOTAL (test code = 3312216631) 26 mmol/L 23-31 AGAP (test code = 0666701184) 2-16 BUN (test code = 8981346069) 9 mg/dL 7-23 GLUCOSE (test code = 1088727185) 97 mg/dL 70-110 CREATININE (test code = 8152971726) 0.64 mg/dL 0.50-1.04 TOTAL BILI (test code = 7429810180) 0.5 mg/dL 0.1-1.1 CALCIUM (test code = 1265815758) 8.2 mg/dL 8.6-10.6 L T PROTEIN (test code = 0895360682) 6.5 g/dL 6.3-8.2 ALBUMIN (test code = 2941601669) 3.9 g/dL 3.5-5.0 ALK PHOS (test code = 3697970393) 93 U/L 34-122 ALTv (test code = 1742-6) 18 U/L 5-35 AST(SGOT) (test code = 5171848532) 19 U/L 13-40 eGFR (test code = 4680813969) mL/min/1.73m2 LYNDSAY (test code = LYNDSAY) Association [...] imaging tests). Lab Interpretation (test code = 23342-9) Abnormal [facility] RockLIPASE2023-01-12 18:21:01* Test Item Value Reference Range Interpretation Comme nts LIPASE (test code = 8204805800) 54 U/L 0-220 Lab Interpretation (test cod e = 18619-9) Normal [facility] WITH [id number] 18:07:00* Test Item Value Reference Range Interpretation Comme nts WBC (test code = 6690-2) See_Comment [Automated [employer]] The system which generated this result transmitted reference range: 4.30 - 11.10 10*3/?L. The reference range was not used to interpret this result as normal/abnormal. RBC (test code = 789-8) See_Comment [Automated [employer]] The system which generated this result transmitted [...] g/dL 31.6-35.1 L RDW-SD (test code = 29313-8) 53.1 fL 39.0-49.9 H RDW-CV (test code = 788-0) 17.0 % 12.0-15.5 H PLT (test code = 777-3) See_Comment H [Automated messa ge] The system which generated this result transmitted reference range: 166 - 358 10*3/?L. The reference range was not used to interpret this result as normal/abnormal. MPV (test code = 39514-2) 8.2 fL 9.5-12.9 L NRBC/100 WBC (test code = 7689908792) See_Comment [Automated [employer] ssage] The system which generated this result transmitted reference range: 0.0 - 10.0 /100 WBCs. The reference range was not used to interpret this result as normal/abnormal. NRBC x10^3 (test code = 1501886214) See_Comment [Automated messa ge] The system which generated this result transmitted reference range: 10*3/?L. The reference range was not used to interpret this result as normal/abnormal. GRAN MAT (NEUT) % (test code = 770-8) 64.0 % IMM GRAN % (test code = 9258478749) 0.40 % LYMPH % (test code = 736-9) 27.3 % MONO % (test code = 5905-5) 6.5 % EOS % (test code = 713-8) 1.1 % BASO % (test code = 706-2) 0.7 % GRAN MAT x10^3(ANC) (test code = 3213032976) 5.46 10*3/uL 1.88-7.09 IMM GRAN x10^3 (test code = 0427121722) 0.03 10*3/uL 0.00-0.06 LYMPH x10^3 (test code = 731-0) 2.32 10*3/uL 1.32-3.29 MONO x10^3 (test code = 742-7) 0.55 10*3/uL 0.33-0.92 EOS x10^3 (test code = 711-2) 0.09 10*3/uL 0.03-0.39 BASO x10^3 (test code = 704-7) 0.06 10*3/uL 0.01-0.07 Lab Interpretation (test code = 09136-0) Abnormal [facility] METABOLIC PANEL (NA, K, CL, CO2, GLUCOSE, BUN, CREATININE, CA)2022-05-08 06:37:01* Test Item Value Reference Range Interpretation Comme nts NA (test code = 2591495843) 137 mmol/L 135-145 K (test code = 4887363637) 3.8 mmol/L 3.5-5 CL (test code = 6947175975) 103 mmol/L 98-108 CO2 TOTAL (test code = 5770834884) 24 mmol/L 23-31 AGAP (test code = 2356549214) 2-16 BUN (test code = 9995044506) 13 mg/dL 7-23 GLUCOSE (test code = 1941245085) 90 mg/dL 70-110 CREATININE (test code = 8654396434) 0.69 mg/dL 0.5-1.04 CALCIUM (test code = 2680115881) 8.5 mg/dL 8.6-10.6 L eGFR (test code = 4198727711) mL/min/1.73m2 LYNDSAY (test code = LYNDSAY) Association [...] imaging tests). Lab Interpretation (test code = 36484-0) Abnormal [facility] RockMAGNESIUM2022-10-20 06:37:01* Test Item Value Reference Range Interpretation Comme nts MAGNESIUM (test code = 7179757060) 2.1 mg/dL 1.7-2.4 Lab Interpretation (test cod e = 60834-9) Normal [facility] RockPHOSPHORUS2022-10-20 06:37:01* Test Item Value Reference Range Interpretation Comme nts PHOSPHORUS (test code = 9067173192) 4.7 mg/dL 2.5-5 Lab Interpretation (test cod e = 32332-5) Normal [facility] RockCB WITH [id number] 06:11:54* Test Item Value Reference Range Interpretation Comme nts WBC (test code = 6690-2) See_Comment [Automated [employer]] The system which generated this result transmitted reference range: 4.30 - 11.10 10*3/?L. The reference range was not used to interpret this result as normal/abnormal. RBC (test code = 789-8) See_Comment [Automated [employer]] The system which generated this result transmitted [...] 32.4 g/dL 31.6-35.1 RDW-SD (test code = 35465-2) 51.0 fL 39-49.9 H RDW-CV (test code = 788-0) 16.5 % 12-15.5 H PLT (test code = 777-3) See_Comment H [Automated messa ge] The system which generated this result transmitted reference range: 166 - 358 10*3/?L. The reference range was not used to interpret this result as normal/abnormal. MPV (test code = 83089-0) 8.3 fL 9.5-12.9 L NRBC/100 WBC (test code = 7700510753) See_Comment [Automated [employer] ssage] The system which generated this result transmitted reference range: 0.0 - 10.0 /100 WBCs. The reference range was not used to interpret this result as normal/abnormal. NRBC x10^3 (test code = 7214874852) See_Comment [Automated messa ge] The system which generated this result transmitted reference range: 10*3/?L. The reference range was not used to interpret this result as normal/abnormal. GRAN MAT (NEUT) % (test code = 770-8) 64.5 % IMM GRAN % (test code = 4805137279) 0.50 % LYMPH % (test code = 736-9) 27.1 % MONO % (test code = 5905-5) 6.6 % EOS % (test code = 713-8) 0.6 % BASO % (test code = 706-2) 0.7 % GRAN MAT x10^3(ANC) (test code = 9094596885) 5.28 10*3/uL 1.88-7.09 IMM GRAN x10^3 (test code = 3862952893) 0.04 10*3/uL 0-0.06 LYMPH x10^3 (test code = 731-0) 2.22 10*3/uL 1.32-3.29 MONO x10^3 (test code = 742-7) 0.54 10*3/uL 0.33-0.92 EOS x10^3 (test code = 711-2) 0.05 10*3/uL 0.03-0.39 BASO x10^3 (test code = 704-7) 0.06 10*3/uL 0.01-0.07 Lab Interpretation (test code = 87002-5) [facility]normal [facility]PO[facility] (AUTOMATED)2022-05-07 01:18:10* Test Item Value Reference Range Interpretation Comme nts POCT GLU (test code = 1967468284) 120 mg/dL 70-110 H Lab Interpretation (test cod e = 06825-9) Abnormal [facility] RockType and Screen - ONCE [id number] 05:46:35* Test Item Value Reference Range Interpretation Comme nts ABO & RH (test code = 20) O POSITIVE Performed at [facility] Laboratory Services [facility] Blood [address] Free: [phone] No. [id number] IAT (test code = 1185) Negative Performed at [facility] Laboratory Services [facility] Blood [address] Free: [phone] No. [id number] [facility] RockBASIC METABOLIC PANEL (NA, K, CL, CO2, GLUCOSE, BUN, CREATININE, CA)2022-05-05 08:22:57* Test Item Value Reference Range Interpretation Comme nts NA (test code = 0699350454) 136 mmol/L 135-145 K (test code = 2183650961) 4.9 mmol/L 3.5-5 CL (test code = 4974312038) 108 mmol/L 98-108 CO2 TOTAL (test code = 3255015896) 22 mmol/L 23-31 L AGAP (test code = 3558142286) 2-16 BUN (test code = 6091202999) 12 mg/dL 7-23 GLUCOSE (test code = 7857228705) 155 mg/dL 70-110 H CREATININE (test code = 8575251240) 0.63 mg/dL 0.5-1.04 CALCIUM (test code = 4091895800) 8.4 mg/dL 8.6-10.6 L eGFR (test code = 2530549812) mL/min/1.73m2 LYNDSAY (test code = LYNDSAY) Association [...] imaging tests). Lab Interpretation (test code = 76483-4) Abnormal [facility] RockPROTHROMBIN TIME / [id number] 08:22:37* Test Item Value Reference Range Interpretation [facility] PROTIME PATIENT (test code = 5964-2) See_Comment [[employer]] The system which generated this result transmitted reference range: 10.1 - 12.6 Seconds. The reference range was not used to interpret this result as normal/abnormal. INR (test code = 6301-6) Normal INR <1.1; Warfarin Therapeutic range 2.0 to 3.0 or 2.5 to 3.5, depending upon the indications. Lab Interpretation (test code = 06037-7) Normal [facility] RockaPTT2022-10-17 08:22:37* Test Item Value Reference Range Interpretation [facility] APTT Patient (test code = 3173-2) See_Comment [Automated messa ge] The system which generated this result transmitted reference range: 26 - 36 Seconds. The reference range was not used to interpret this result as normal/abnormal. Lab Interpretation (test code = 04111-3) Normal [facility] RockFIBRINOGEN2022-10-17 08:22:37* Test Item Value Reference Range Interpretation Comme nts Fibrinogen (test code = 9654793942) 294 mg/dL 167-453 Lab Interpretation (test cod e = 40374-6) Normal [facility] RockCB WITH [id number] 08:15:01* Test Item Value Reference Range Interpretation [...] g/dL 31.6-35.1 L RDW-SD (test code = 12155-4) 52.9 fL 39-49.9 H RDW-CV (test code = 788-0) 16.8 % 12-15.5 H PLT (test code = 777-3) See_Comment H [Automated messa ge] The system which generated this result transmitted reference range: 166 - 358 10*3/?L. The reference range was not used to interpret this result as normal/abnormal. MPV (test code = 58199-2) 8.3 fL 9.5-12.9 L NRBC/100 WBC (test code = 2104821121) See_Comment [Automated me ssage] The system which generated this result transmitted reference range: 0.0 - 10.0 /100 WBCs. The reference range was not used to interpret this result as normal/abnormal. NRBC x10^3 (test code = 3311017909) See_Comment [Automated messa ge] The system which generated this result transmitted reference range: 10*3/?L. The reference range was not used to interpret this result as normal/abnormal. GRAN MAT (NEUT) % (test code = 770-8) 86.4 % IMM GRAN % (test code = 6186081916) 0.40 % LYMPH % (test code = 736-9) 11.7 % MONO % (test code = 5905-5) 1.1 % EOS % (test code = 713-8) 0.0 % BASO % (test code = 706-2) 0.4 % GRAN MAT x10^3(ANC) (test code = 4913939040) 6.36 10*3/uL 1.88-7.09 IMM GRAN x10^3 (test code = 5265653882) 0.03 10*3/uL 0-0.06 LYMPH x10^3 (test code = 731-0) 0.86 10*3/uL 1.32-3.29 L MONO x10^3 (test code = 742-7) 0.08 10*3/uL 0.33-0.92 L EOS x10^3 (test code = 711-2) 0.03-0.39 L BASO x10^3 (test code = 704-7) 0.03 10*3/uL 0.01-0.07 Lab Interpretation (test code = 98950-7) [facility], [id number] 20:14:03* Test Item Value Reference Range Interpretation Comme nts VIT D 25OH (test code = 75752-1) 22 ng/mL 25-80 L LYNDSAY (test code = LYNDSAY) Deficiency: <20 ng/mLInsufficiency: 20-24 ng/mLOptimal: 25-80 ng/mL Lab Interpretation (test code = 27997-0) [facility] Rock[facility] METABOLIC PANEL (NA, K, CL, CO2, GLUCOSE, BUN, CREATININE, CA)2022-04-15 11:27:57* Test Item Value Reference Range Interpretation Comme nts NA (test code = 5506134519) 138 mmol/L 135-145 K (test code = 5394731560) 3.9 mmol/L 3.5-5 CL (test code = 0440949287) 106 mmol/L 98-108 CO2 TOTAL (test code = 6130540269) 23 mmol/L 23-31 AGAP (test code = 2098409726) 2-16 BUN (test code = 0284990744) 10 mg/dL 7-23 GLUCOSE (test code = 2437941234) 91 mg/dL 70-110 CREATININE (test code = 5129720886) 0.65 mg/dL 0.5-1.04 CALCIUM (test code = 6794336877) 8.1 mg/dL 8.6-10.6 L eGFR (test code = 6152075693) mL/min/1.73m2 LYNDSAY (test code = LYNDSAY) Association [...] imaging tests). Lab Interpretation (test code = 63909-2) [facility]normal [facility] Rock[facility] Protocol - Transthoracic echo (TTE) 2022-04-14 22:07:33* Test Item Value Reference Range Interpretation Comme nts Height (test code = 8097413944) in Weight (test code = 1551341964) lbs Systolic BP (test code = 5427365904) mmHg Diastolic BP (test code = 9117170246) mmHg Heart Rate (test code = 2242389396) bpm BSA (test code = 7516287384) 1.94 m2 TASV (test code = 8745165212) 15.5 cm/s LVIDD (test code = 8754541078) 6.00 cm Left Ventricular End Diastolic Volume by Teichholz Method (test code = 5557784) 183.0 mL IVS (test code = 9468134421) 1.09 cm Interventricular Septum Diastolic Thickness by 2D (test code = 3258564) 1.09 cm LVPWD (test code = 8055144351) 0.94 cm PW (test code = 1048502490) 0.94 cm 0.6-1.1 EF(Teich) (test code = 3296949528) 40.30 % LVIDS (test code = 7488860171) 4.80 cm Left Ventricular End Systolic Volume by Teichholz Method (test code = 1501376) 109.2 mL FS (test code = 6164783548) 20 % EF - 2D (test code = 63084938) 40.30 % LVOT diameter (test code = 3199469973) 2.05 cm LVOT area (test code = 6747442884) 3.30 cm2 Ao root diam (test code = 6360011331) 3.10 cm Aortic root (test code = 5644781311) 3.1 cm Ao root annulus (test code = 7686922907) 3.1 cm LA size (test code = 3575188380) 4.2 cm LAV(MOD-sp4) (test code = 9723225257) 64.90 mL MV Peak A Evette (test code = 4867019296) 115.7 cm/s E wave decelartion time (test code = 2992008175) 0.15 s MV Peak E Evette (test code = 1851801481) 106.2 cm/s E/A ratio (test code = 6374675021) ratio LVOT stroke volume (test code = 6188413406) 48.30 cm3 LVOT peak evette (test code = 1307801322) 78.4 cm/s LVOT mn grad (test code = 0568343600) mmHg AV LVOT peak gradient (test code = 2358029387) mmHg LVOT peak VTI (test code = 2515981692) 14.7 cm LV V1 mean (test code = 3244771294) 51.40 cm/s Ao peak evette (test code = 7932731477) 154.7 cm/s AV area peak evette (test code = 0832561998) 1.7 cm2 Ao max PG (test code = 1853677018) 9.60 mm[Hg] AV peak gradient (test code = 3155110029) mmHg AV regurgitation pressure 1/2 time (test code = 5968351879) 257.3 ms AI dec slope (test code = 5931981505) 498.10 cm/s2 AI max evette (test code = 7477642340) 437.60 cm/s AI max PG (test code = 4020902733) 77.80 mm[Hg] Tapse (test code = 5058886533) 2.19 cm LA Volume Index (BP) (test code = 3111698462) 32.0 mL/m2 LA volume (BP) (test code = 7029707714) 62.1 mL LAV(MOD-sp2) (test code = 5508223650) 52.70 mL A4C EF (test code = 6728370292) 44.80 % EF(sp4-el) (test code = 4308170067) 45.20 % SV(MOD-sp4) (test code = 9932128241) 71.20 mL SV(sp4-el) (test code = 9868256326) 73.90 mL LV Diastolic Volume (BP) (test code = 1685355186) 146.3 mL A2C EF (test code = 3009352345) 52.00 % EF(MOD-bp) (test code = 9817080639) 46.70 % EF(sp2-el) (test code = 1848963832) 52.40 % LV Systolic Volume (BP) (test code = 9033510460) 77.9 mL SV(MOD-bp) (test code = 7364302233) 68.40 mL SV(MOD-sp2) (test code = 4310957669) 69.20 mL EF (test code = 7668216303) Left Ventricular Stroke Volume by 2-D Biplane-MOD (test code = 3436015) 68.4 mL Radiology Study observation (narrative) (test code = 75399-8) LYNDSAY (test code = LYNDSAY) ?Left?Ventricle: Left [facility] RockKEPPRA (LEVETIRACETAM)2022-04-14 16:48:36* Test Item Value Reference Range Interpretation Comme nts KEPPRA (test code = 1793505426) 12-46 L LYNDSAY (test code = LYNDSAY) Therapeutic range: 12-46 ?g/mL ? ?Toxic: Not well established.Test developed and characteristics determined by [facility] Laboratory Services. Lab Interpretation (test code = 26537-0) Abnormal [facility] RockBasi Metabolic Panel (Na, K, Cl, CO2, Glucose, BUN, Creatinine, Ca)2022-04-14 10:50:11* Test Item Value Reference Range Interpretation Comme nts NA (test code = 9025610832) 136 mmol/L 135-145 K (test code = 9150129595) 3.8 mmol/L 3.5-5 CL (test code = 4908509739) 105 mmol/L 98-108 CO2 TOTAL (test code = 9188119471) 25 mmol/L 23-31 AGAP (test code = 4191997067) 2-16 BUN (test code = 8976552126) 9 mg/dL 7-23 GLUCOSE (test code = 1958051120) 101 mg/dL 70-110 CREATININE (test code = 1236513235) 0.66 mg/dL 0.5-1.04 CALCIUM (test code = 0503393790) 8.1 mg/dL 8.6-10.6 L eGFR (test code = 7197323939) mL/min/1.73m2 LYNDSAY (test code = LYNDSAY) Association [...] imaging tests). Lab Interpretation (test code = 42596-3) Abnormal [facility] RockMagensium, [id number] 10:50:11* Test Item Value Reference Range Interpretation Comme nts MAGNESIUM (test code = 2420177968) 1.9 mg/dL 1.7-2.4 Lab Interpretation (test cod e = 49125-4) Normal [facility] RockThyroid Stimulating [id number] 22:21:44 * Test Item Value Reference Range Interpretation Comme nts TSH (test code = 5157243743) See_Comment Biotin has been reported to cause a negative bias, interpret results relative to patient's use of biotin. [Automated message] The system which generated this result transmitted reference range: 0.45 - 4.70 mIU/L. The reference range was not used to interpret this result as normal/abnormal. Lab Interpretation (test code = 05367-7) Normal [facility] RockGLYCOSYLATED HEMOGLOBIN (A1C)2022-04-13 21:53:43* Test Item Value Reference Range Interpretation Comme nts HGB A1C (test code = 4548-4) 5.8 % 4-5.7 H LYNDSAY (test code = LYNDSAY) Reference RangesNormal: <5.7%Prediabetes: 5.7 - 6.4%Diabetes: > 6.5% Lab Interpretation (test code = 76458-5) Abnormal [facility] RockFASTING LIPID PANEL (75523)(TOTAL CHOLESTEROL, TRIGLYCERIDES, HDL)2022-04-13 21:34:53* Test Item Value Reference Range Interpretation Comme nts CHOL (test code = 3920359897) 201 mg/dL 120-200 H HDL (test code = 9594299887) 56 mg/dL See_Comment [Automated [employer]] The system which generated this result transmitted reference range: >=50. The reference range was not used to interpret this result as normal/abnormal. HDLC RATIO (test code = 5075290448) See_Comment [Automated [employer]] The system which generated this result transmitted reference range: <=4.5. The reference range was not used to interpret this result as normal/abnormal. TRIG (test code = 4952799329) 355 mg/dL 30-170 H LDL CHOL (test code = 54880-4) 74 mg/dL See_Comment [Automated [employer]] The system which generated this result transmitted reference range: <=160. The reference range was not used to interpret this result as normal/abnormal. VLDL (test code = 4601568297) 71 mg/dL 5-60 H Lab Interpretation (test code = 44323-5) [facility]normal [facility] RockTroponin I - Code [id number] 18:46:27* Test Item Value Reference Range Interpretation Comments TROPONIN I (test code = 0912723097) 0.013 ng/mL See_Comment [Automated message] The system [...] of biotin. Lab Interpretation (test code = 87288-7) Normal [facility] RockBasi Metabolic Panel (NA, K, CL, CO2, Glucose, BUN, Creatinine, CA) - Code [id number] 18:35:07* Test Item Value Reference Range Interpretation Comme nts NA (test code = 6090764617) 136 mmol/L 135-145 K (test code = 6530145541) 4.3 mmol/L 3.5-5 CL (test code = 4039505006) 105 mmol/L 98-108 CO2 TOTAL (test code = 8280561798) 27 mmol/L 23-31 AGAP (test code = 6751380655) 2-16 BUN (test code = 1414128153) 8 mg/dL 7-23 GLUCOSE (test code = 4203808533) 130 mg/dL 70-110 H CREATININE (test code = 4440230360) 0.75 mg/dL 0.5-1.04 CALCIUM (test code = 7485901225) 8.5 mg/dL 8.6-10.6 L eGFR (test code = 6930334461) mL/min/1.73m2 LYNDSAY (test code = LYNDSAY) Association [...] imaging tests). Lab Interpretation (test code = 19039-5) [facility]normal [facility] RockaPTT - Code [id number] 18:32:46* Test Item Value Reference Range Interpretation Comme [facility] APTT Patient (test code = 3173-2) See_Comment [Automated message] The system which generated this result transmitted reference range: 23 - 38 Seconds. The reference range was not used to interpret this result as normal/abnormal. LYNDSAY (test code = LYNDSAY) The [facility] patient population mean normal value for aPTT is 30 seconds. Lab Interpretation (test code = 18123-4) Normal [facility] RockProthrombin Time / INR - Code [id number] 18:30:45* Test Item Value Reference Range Interpretation Comme [facility] PROTIME PATIENT (test code = 5964-2) See_Comment [Automated messa ge] The system which generated this result transmitted reference range: 12.0 - 14.7 Seconds. The reference range was not used to interpret this result as normal/abnormal. INR (test code = 6301-6) Normal INR <1.1; Warfarin Therapeutic range 2.0 to 3.0 or 2.5 to 3.5, depending upon the indications. Lab Interpretation (test code = 07672-5) Normal [facility] RockCBC without Diff - Code [id number] 18:23:07* Test Item Value Reference Range Interpretation Comme [facility] WBC (test code = 6690-2) See_Comment [...] result as normal/abnormal. MPV (test code = 28703-0) 8.1 fL 9.5-12.9 L RDW-CV (test code = 788-0) 16.1 % 12-15.5 H RDW-SD (test code = 15408-3) 49.2 fL 39-49.9 NRBC x10^3 (test code = 9567139114) See_Comment [Automated [employer]] The system which generated this result transmitted reference range: 10*3/?L. The reference range was not used to interpret this result as normal/abnormal. NRBC/100 WBC (test code = 0987365656) See_Comment [Automated [employer]] The system which generated this result transmitted reference range: 0.0 - 10.0 /100 WBCs. The reference range was not used to interpret this result as normal/abnormal. IPF % (test code = 6090826905) Lab Interpretation (test code = 49354-4) Abnormal [facility] [id number] 21:06:40* Test Item Value Reference Range Interpretation Comments TROPONIN I (test code = 4909593641) 0.005 ng/mL See_Comment [Automated message] The system which generated this result transmitted reference range: <=0.034. The reference range was not used to interpret this result as normal/abnormal. LYNSDAY (test code = LYNDSAY) Reference (Normal) Range [...] of biotin. Lab Interpretation (test code = 49326-9) Normal [facility] RockCOMP. METABOLIC PANEL (87315)2021-11-23 20:55:42* Test Item Value Reference Range Interpretation Comme nts NA (test code = 5800492999) 137 mmol/L 135-145 K (test code = 2560526964) 4.3 mmol/L 3.5-5.0 CL (test code = 1888334296) 104 mmol/L 98-108 CO2 TOTAL (test code = 4870361871) 22 mmol/L 23-31 L AGAP (test code = 3593838670) 2-16 BUN (test code = 0483642838) 15 mg/dL 7-23 GLUCOSE (test code = 5659175625) 114 mg/dL 70-110 H CREATININE (test code = 3996404186) 0.68 mg/dL 0.50-1.04 TOTAL BILI (test code = 3942448516) 0.5 mg/dL 0.1-1.1 CALCIUM (test code = 4248525578) 9.1 mg/dL 8.6-10.6 T PROTEIN (test code = 6197272088) 7.3 g/dL 6.3-8.2 ALBUMIN (test code = 0832109462) 4.4 g/dL 3.5-5.0 ALK PHOS (test code = 4929718442) 243 U/L 34-122 H ALTv (test code = 1742-6) 24 U/L 5-35 AST(SGOT) (test code = 8719004869) 30 U/L 13-40 eGFR (test code = 2848766475) mL/min/1.73m2 LYNDSAY (test code = LYNDSAY) Association [...] imaging tests). Lab Interpretation (test code = 39081-2) [facility]normal [facility] RockLIPASE2022-05-07 20:55:22* Test Item Value Reference Range Interpretation Comme nts LIPASE (test code = 8315709615) 96 U/L 0-220 Lab Interpretation (test cod e = 53350-5) Normal [facility] RockPOCT [id number] 20:46:00* Test Item Value Reference Range Interpretation Comme nts POCT PREG (test code = 1605) negative On board controls acceptable with C Line (test code = 3574) present POCT PREG LOT # (test code = 3575) [id number] POCT PREG TEST DATE ( test code = 3576) 04/18/2023 Lab Interpretation (test cod e = 67302-4) Normal [facility] RockCBC WITH [id number] 20:40:38* Test Item Value Reference Range Interpretation Comme nts WBC (test code = 6690-2) See_Comment [Automated [employer]] The system which generated this result transmitted reference range: 4.30 - 11.10 10*3/?L. The reference range was not used to interpret this result as normal/abnormal. RBC (test code = 789-8) See_Comment [Automated [employer] ge] The system which generated this result [...] 31.8 g/dL 31.6-35.1 RDW-SD (test code = 57090-6) 53.7 fL 39.0-49.9 H RDW-CV (test code = 788-0) 17.2 % 12.0-15.5 H PLT (test code = 777-3) See_Comment H [Automated messa ge] The system which generated this result transmitted reference range: 166 - 358 10*3/?L. The reference range was not used to interpret this result as normal/abnormal. MPV (test code = 79930-7) 8.5 fL 9.5-12.9 L NRBC/100 WBC (test code = 1025774076) See_Comment [Automated [employer] ss[employer]] The system which generated this result transmitted reference range: 0.0 - 10.0 /100 WBCs. The reference range was not used to interpret this result as normal/abnormal. NRBC x10^3 (test code = 3074911630) <0.01 See_Comment [Automated messa ge] The system which generated this result transmitted reference range: 10*3/?L. The reference range was not used to interpret this result as normal/abnormal. GRAN MAT (NEUT) % (test code = 770-8) 53.7 % IMM GRAN % (test code = 5043691107) 0.90 % LYMPH % (test code = 736-9) 32.6 % MONO % (test code = 5905-5) 10.1 % EOS % (test code = 713-8) 1.5 % BASO % (test code = 706-2) 1.2 % GRAN MAT x10^3(ANC) (test code = 7862377138) 4.98 10*3/uL 1.88-7.09 IMM GRAN x10^3 (test code = 9821409241) 0.08 10*3/uL 0.00-0.06 H LYMPH x10^3 (test code = 731-0) 3.02 10*3/uL 1.32-3.29 MONO x10^3 (test code = 742-7) 0.94 10*3/uL 0.33-0.92 H EOS x10^3 (test code = 711-2) 0.14 10*3/uL 0.03-0.39 BASO x10^3 (test code = 704-7) 0.11 10*3/uL 0.01-0.07 H Lab Interpretation (test code = 07148-1) Abnormal [facility] RockPOCT GLUCOSE (AUTOMATED)2021-11-23 20:17:33* Test Item Value Reference Range Interpretation Comme [facility] POCT GLU (test code = 5243730685) 111 mg/dL 70-110 H Notified Provide r Lab Interpretation (test code = 94842-1) Abnormal [facility] RockPAP TEST, THINPREP, [id number] 00:00:00 * Test Item Value Reference Range Interpretation Comme nts SOURCE: (test code = 8001) Endocervical SLIDES: (test code = 8011) 1 LMP: (test code = 8021) 06/03/2021 SPECIMEN ADEQUACY: (test code = 99933) (NOTE) INTERPRETATION: (test code = 65259) ASCUS/EPITH. ABNORMALITY; SEE BELOW JAVASCRIPT WEB DEVELOPER: (test code = 8101) CHANA Thacker(ASCP)IAC PATHOLOGIST INTERPRETATION BY: (test code = 8122) Nahid Russell M.D. LOCATION: (test code = 70618) (NOTE) CPT: (test code = 8140) (NOTE) PAP TEST, THINPREP, [id number] 00:00:00* Test Item Value Reference Range Interpretation Comme [facility] SOURCE: (test code = 8001) Endocervical SLIDES: (test code = 8011) 1 LMP: (test code = 8021) 06/03/2021 SPECIMEN ADEQUACY: (test code = 08799) (NOTE) INTERPRETATION: (test code = 12568) ASCUS/EPITH. ABNORMALITY; SEE BELOW JAVASCRIPT WEB DEVELOPER: (test code = 8101) CHANA Thacker(ASCP)IAC PATHOLOGIST INTERPRETATION BY: (test code = 8122) Nahid Russell M.D. LOCATION: (test code = 39543) (NOTE) CPT: (test code = 8140) (NOTE) HPV HIGH RISK WITH GENOTYPE, [id number] 00:00:00* Test Item Value Reference Range Interpretation Comme nts HPV HIGH RISK INTERP (test c ode = 96156) POSITIVE HPV 16 (test code = 26823) POSITIVE HPV 18 (test code = 01138) NEGATIVE HPV, HR, OTHER GENOTYPES (te st code = 14319) POSITIVE HPV HIGH RISK WITH GENOTYPE, [id number] 00:00:00* Test Item Value Reference Range Interpretation Comme nts HPV HIGH RISK INTERP (test c ode = 37396) POSITIVE HPV 16 (test code = 86961) POSITIVE HPV 18 (test code = 75444) NEGATIVE HPV, HR, OTHER GENOTYPES (te st code = 48070) POSITIVE [id number] 03:22:48* Test Item Value Reference Range Interpretation Comme nts APPEARANCE (test code = 6784674456) Hazy Clear A COLOR (test code = 4263776088) Yellow Yellow PH (test code = 1935714008) 4.8-8.0 SP GRAVITY (test code = 5059085179) 1.003-1.030 GLU U QUAL (test code = 7128811432) Normal Normal BLOOD (test code = 0494256352) Negative Negative Interference fro m ascorbic acid may cause false negative results. KETONES (test code = 6827160701) 5 mg/dL Negative A PROTEIN (test code = 2887-8) Negative Negative UROBILIN (test code = 9718100741) 4.0 mg/dL Normal A BILIRUBIN (test code = 9965278094) Negative Negative NITRITE (test code = 1001633468) Negative Negative LEUK GRUPO (test code = 0407822112) Negative Negative RBC/HPF (test code = 0589631795) See_Comment [Automated [employer]] The system which generated this result transmitted reference range: 0 - 3 HPF. The reference range was not used to interpret this result as normal/abnormal. WBC/HPF (test code = 4513633419) <1 See_Comment [Automated [employer]] The system which generated this result transmitted reference range: 0 - 5 HPF. The reference range was not used to interpret this result as normal/abnormal. BACTERIA (test code = 8094333028) Few Negative A SQ EPITH (test code = 9975940062) HPF Lab Interpretation (test code = 89436-8) [facility]normal [facility] RockURINALYSIS2021-08-29 03:22:48* Test Item Value Reference Range Interpretation Comme nts APPEARANCE (test code = 4213192117) Hazy Clear A COLOR (test code = 8447327021) Yellow Yellow PH (test code = 7948842083) 4.8-8.0 SP GRAVITY (test code = 6169840668) 1.003-1.030 GLU U QUAL (test code = 3580969811) Normal Normal BLOOD (test code = 7745083892) Negative Negative KETONES (test code = 6120613257) 5 mg/dL Negative A PROTEIN (test code = 2887-8) Negative Negative UROBILIN (test code = 5349062517) 4.0 mg/dL Normal A BILIRUBIN (test code = 3878636518) Negative Negative NITRITE (test code = 5952764144) Negative Negative LEUK GRUPO (test code = 6338792474) Negative Negative RBC/HPF (test code = 0981552417) See_Comment [Automated [employer]] The system which generated this result transmitted reference range: 0 - 3 HPF. The reference range was not used to interpret this result as normal/abnormal. WBC/HPF (test code = 5360982779) <1 See_Comment [Automated [employer]] The system which generated this result transmitted reference range: 0 - 5 HPF. The reference range was not used to interpret this result as normal/abnormal. BACTERIA (test code = 3654356064) Few Negative A SQ EPITH (test code = 9748369896) HPF Lab Interpretation (test code = 88182-4) [facility]normal [facility] RockTROPONIN [id number] 02:45:00* Test Item Value Reference Range Interpretation Comments TROPONIN I (test code = 0062125861) 0.002 ng/mL See_Comment [Automated message] The system [...] of biotin. Lab Interpretation (test code = 84880-4) Normal [facility] [id number] 02:45:00* Test Item Value Reference Range Interpretation Comme nts TROPONIN I (test code = 9549827402) 0.002 ng/mL See_Comment [Automated [employer]] The system which generated this result transmitted reference range: <=0.034. The reference range was not used to interpret this result as normal/abnormal. LYNDSAY (test code = LYNDSAY) Lab Interpretation (test code = 66458-3) Normal [facility] RockN-TERMINAL [id number] 02:41:57* Test Item Value Reference Range Interpretation Comme nts NT-proBNP (test code = 6812602118) 169 pg/mL See_Comment H [Automated message] The system which generated this result transmitted reference range: <=125. The reference range was not used to interpret this result as normal/abnormal. LYNDSAY (test code = LYNDSAY) Biotin has been reported to cause a negative bias, interpret results relative to patient's use of biotin. Lab Interpretation (test code = 62345-6) Abnormal [facility] RockN-TERMINAL [id number] 02:41:57* Test Item Value Reference Range Interpretation Comme nts NT-proBNP (test code = 1431923358) 169 pg/mL See_Comment H [Automated [employer]] The system which generated this result transmitted reference range: <=125. The reference range was not used to interpret this result as normal/abnormal. LYNDSAY (test code = LYNDSAY) Lab Interpretation (test code = 23626-0) Abnormal [facility]. METABOLIC PANEL (79473)2021-03-17 02:09:13* Test Item Value Reference Range Interpretation Comme nts NA (test code = 3670730597) 137 mmol/L 135-145 K (test code = 2939569955) 4.2 mmol/L 3.5-5.0 CL (test code = 8916986451) 102 mmol/L 98-108 CO2 TOTAL (test code = 8674215106) 25 mmol/L 23-31 AGAP (test code = 6993613276) 2-16 BUN (test code = 6329606605) 18 mg/dL 7-23 GLUCOSE (test code = 3328441209) 144 mg/dL 70-110 H CREATININE (test code = 5848400745) 0.77 mg/dL 0.50-1.04 TOTAL BILI (test code = 2519228721) 0.4 mg/dL 0.1-1.1 CALCIUM (test code = 9324070445) 8.9 mg/dL 8.6-10.6 T PROTEIN (test code = 2190188738) 6.8 g/dL 6.3-8.2 ALBUMIN (test code = 7471230728) 3.9 g/dL 3.5-5.0 ALK PHOS (test code = 5037240651) 84 U/L 34-122 ALTv (test code = 1742-6) 13 U/L 5-35 AST(SGOT) (test code = 0954524327) 17 U/L 13-40 eGFR (test code = 3054082057) mL/min/1.73m2 LYNDSAY (test code = LYNDSAY) Association [...] imaging tests). Lab Interpretation (test code = 32906-6) Abnormal [facility]. METABOLIC PANEL (44738)2021-03-17 02:09:13* Test Item Value Reference Range Interpretation Comme nts NA (test code = 5698651936) 137 mmol/L 135-145 K (test code = 0627648296) 4.2 mmol/L 3.5-5.0 CL (test code = 3173343100) 102 mmol/L 98-108 CO2 TOTAL (test code = 1518019734) 25 mmol/L 23-31 AGAP (test code = 5782784927) 2-16 BUN (test code = 2908815326) 18 mg/dL 7-23 GLUCOSE (test code = 6075647212) 144 mg/dL 70-110 H CREATININE (test code = 5254266378) 0.77 mg/dL 0.50-1.04 TOTAL BILI (test code = 6332427309) 0.4 mg/dL 0.1-1.1 CALCIUM (test code = 6303415607) 8.9 mg/dL 8.6-10.6 T PROTEIN (test code = 7369642658) 6.8 g/dL 6.3-8.2 ALBUMIN (test code = 5280302047) 3.9 g/dL 3.5-5.0 ALK PHOS (test code = 9053010057) 84 U/L 34-122 ALTv (test code = 1742-6) 13 U/L 5-35 AST(SGOT) (test code = 6538697701) 17 U/L 13-40 eGFR (test code = 7908820797) mL/min/1.73m2 LYNDSAY (test code = LYNDSAY) Lab Interpretation (test cod e = 71579-6) Abnormal [facility] WITH [id number] 01:56:33* Test Item Value Reference Range Interpretation [...] g/dL 31.6-35.1 L RDW-SD (test code = 86359-5) 55.5 fL 39.0-49.9 H RDW-CV (test code = 788-0) 18.9 % 12.0-15.5 H PLT (test code = 777-3) See_Comment H [Automated messa ge] The system which generated this result transmitted reference range: 166 - 358 10*3/?L. The reference range was not used to interpret this result as normal/abnormal. MPV (test code = 56217-4) 8.2 fL 9.5-12.9 L NRBC/100 WBC (test code = 3220888724) See_Comment [Automated me ssage] The system which generated this result transmitted reference range: 0.0 - 10.0 /100 WBCs. The reference range was not used to interpret this result as normal/abnormal. NRBC x10^3 (test code = 0937492766) <0.01 See_Comment [Automated messa ge] The system which generated this result transmitted reference range: 10*3/?L. The reference range was not used to interpret this result as normal/abnormal. GRAN MAT (NEUT) % (test code = 770-8) 61.7 % IMM GRAN % (test code = 3291192723) 0.80 % LYMPH % (test code = 736-9) 28.5 % MONO % (test code = 5905-5) 6.3 % EOS % (test code = 713-8) 1.8 % BASO % (test code = 706-2) 0.9 % GRAN MAT x10^3(ANC) (test code = 7754056572) 7.31 10*3/uL 1.88-7.09 H IMM GRAN x10^3 (test code = 3937846123) 0.09 10*3/uL 0.00-0.06 H LYMPH x10^3 (test code = 731-0) 3.38 10*3/uL 1.32-3.29 H MONO x10^3 (test code = 742-7) 0.75 10*3/uL 0.33-0.92 EOS x10^3 (test code = 711-2) 0.21 10*3/uL 0.03-0.39 BASO x10^3 (test code = 704-7) 0.11 10*3/uL 0.01-0.07 H Lab Interpretation (test code = 64779-2) Abnormal [facility] WITH [id number] 01:56:33* Test Item Value Reference Range Interpretation [...] g/dL 31.6-35.1 L RDW-SD (test code = 44255-9) 55.5 fL 39.0-49.9 H RDW-CV (test code = 788-0) 18.9 % 12.0-15.5 H PLT (test code = 777-3) See_Comment H [Automated messa ge] The system which generated this result transmitted reference range: 166 - 358 10*3/?L. The reference range was not used to interpret this result as normal/abnormal. MPV (test code = 13023-2) 8.2 fL 9.5-12.9 L NRBC/100 WBC (test code = 9763765447) See_Comment [Automated SimpliField ssage] The system which generated this result transmitted reference range: 0.0 - 10.0 /100 WBCs. The reference range was not used to interpret this result as normal/abnormal. NRBC x10^3 (test code = 2391592566) <0.01 See_Comment [Automated messa ge] The system which generated this result transmitted reference range: 10*3/?L. The reference range was not used to interpret this result as normal/abnormal. GRAN MAT (NEUT) % (test code = 770-8) 61.7 % IMM GRAN % (test code = 7627870722) 0.80 % LYMPH % (test code = 736-9) 28.5 % MONO % (test code = 5905-5) 6.3 % EOS % (test code = 713-8) 1.8 % BASO % (test code = 706-2) 0.9 % GRAN MAT x10^3(ANC) (test code = 5754674483) 7.31 10*3/uL 1.88-7.09 H IMM GRAN x10^3 (test code = 8752052840) 0.09 10*3/uL 0.00-0.06 H LYMPH x10^3 (test code = 731-0) 3.38 10*3/uL 1.32-3.29 H MONO x10^3 (test code = 742-7) 0.75 10*3/uL 0.33-0.92 EOS x10^3 (test code = 711-2) 0.21 10*3/uL 0.03-0.39 BASO x10^3 (test code = 704-7) 0.11 10*3/uL 0.01-0.07 H Lab Interpretation (test code = 52642-3) [facility]2021-03-17 01:38:12* Test Item Value Reference Range Interpretation Comme nts SARS-CoV-2 Rapid ID NOW (test code = 60475-0) Not Detected Not Detected LYNDSAY (test code = LYNDSAY) ID NOW COVID-19 As say is an isothermal nucleic acid amplification test intended for the qualitative detection of nucleic acid from SARS-CoV-2 viral RNA in nasopharyngeal (HAND BOOKED FOLDER AND STITCHER) specimens. It is used under Emergency Use [...] clinically indicated. Lab Interpretation (test code = 06852-2) Normal [facility]19 (ID NOW RAPID TESTING)2021-03-17 01:38:12* Test Item Value Reference Range Interpretation Comme nts SARS-CoV-2 Rapid ID NOW (raisa t code = 42492-9) Not Detected Not Detected LYNDSAY (test code = LYNDSAY) Lab Interpretation (test cod e = 49058-7) Normal [facility]19 (ID NOW RAPID TESTING)2021-02-19 17:42:45* Test Item Value Reference Range Interpretation Comme nts SARS-CoV-2 Rapid ID NOW (test code = 76104-0) Not Detected Not Detected LYNDSAY (test code = LYNDSAY) ID NOW COVID-19 As say is an isothermal nucleic acid amplification test intended for the qualitative detection of nucleic acid from SARS-CoV-2 viral RNA in nasopharyngeal (HAND BOOKED FOLDER AND STITCHER) specimens. It is used under Emergency Use [...] clinically indicated. Lab Interpretation (test code = 46328-3) Normal [facility] ABDOMEN PELVIS W [id number] 17:24:55Thickening of the gastric antrum and duodenal [...] Electronicallysigned by James Freeman at 02/19/2021 12:24 PMUnMethod[facility] CenterUrinalysis2021-08-03 17:03:40* Test Item Value Reference Range Interpretation Comme nts APPEARANCE (test code = 8705528463) Hazy Clear A COLOR (test code = 1350027927) Mabel Yellow A PH (test code = 3773204828) 4.8-8.0 SP GRAVITY (test code = 4945529924) 1.003-1.030 H GLU U QUAL (test code = 8253303002) Normal Normal BLOOD (test code = 5322490480) Negative Negative KETONES (test code = 7780055195) 5 mg/dL Negative A PROTEIN (test code = 2887-8) 30 mg/dL Negative A UROBILIN (test code = 5856714452) 4.0 mg/dL Normal A BILIRUBIN (test code = 3263243255) 4 mg/dL Negative A NITRITE (test code = 7946099314) Negative Negative LEUK GRUPO (test code = 6681673549) Negative Negative RBC/HPF (test code = 6721546733) See_Comment H [Automated messa ge] The system which generated this result transmitted reference range: 0 - 3 HPF. The reference range was not used to interpret this result as normal/abnormal. WBC/HPF (test code = 2387371882) See_Comment H [Automated messa ge] The system which generated this result transmitted reference range: 0 - 5 HPF. The reference range was not used to interpret this result as normal/abnormal. BACTERIA (test code = 6850181361) Few Negative A MUCOUS (test code = 3035734560) Moderate Negative LPF A SQ EPITH (test code = 9872618148) HPF CA OXALATE (test code = 0211297680) See_Comment H [Automated messa ge] The system which generated this result transmitted reference range: <=1 HPF. The reference range was not used to interpret this result as normal/abnormal. Ictotest (test code = 7208670306) Negative Lab Interpretation (test code = 67387-1) [facility] [id number] 16:34:55* Test Item Value Reference Range Interpretation Comme nts NA (test code = 4776694191) 139 mmol/L 135-145 K (test code = 7548938460) 4.3 mmol/L 3.5-5.0 CL (test code = 7976906306) 105 mmol/L 98-108 CO2 TOTAL (test code = 9027582585) 26 mmol/L 23-31 AGAP (test code = 4469351325) 2-16 BUN (test code = 1039478684) 11 mg/dL 7-23 GLUCOSE (test code = 8403673634) 95 mg/dL 70-110 CREATININE (test code = 0544016056) 0.70 mg/dL 0.50-1.04 TOTAL BILI (test code = 0654438070) 0.6 mg/dL 0.1-1.1 CALCIUM (test code = 5524449462) 8.9 mg/dL 8.6-10.6 T PROTEIN (test code = 6349028617) 7.7 g/dL 6.3-8.2 ALBUMIN (test code = 1008545284) 4.1 g/dL 3.5-5.0 ALK PHOS (test code = 4508518759) 79 U/L 34-122 ALTv (test code = 1742-6) 10 U/L 5-35 AST(SGOT) (test code = 1639724271) 22 U/L 13-40 eGFR (test code = 4003285832) mL/min/1.73m2 LYNDSAY (test code = LYNDSAY) Association [...] [facility] Rock[facility], [id number] 16:34:14* Test Item Value Reference Range Interpretation Comme nts LIPASE (test code = 5700298797) 45 U/L 0-220 Lab Interpretation (test cod e = 33862-9) Normal [facility] with Vqowniyitwjl4777-71-83 16:21:12* Test Item Value Reference Range Interpretation Comme nts WBC (test code = 6690-2) See_Comment [Automated [employer]] The system which generated this result transmitted reference range: 4.30 - 11.10 10*3/?L. The reference range was not used to interpret this result as normal/abnormal. RBC (test code = 789-8) See_Comment [[employer]] The system which generated this result transmitted [...] g/dL 31.6-35.1 L RDW-SD (test code = 44067-0) 54.4 fL 39.0-49.9 H RDW-CV (test code = 788-0) 18.3 % 12.0-15.5 H PLT (test code = 777-3) See_Comment H [Automated messa ge] The system which generated this result transmitted reference range: 166 - 358 10*3/?L. The reference range was not used to interpret this result as normal/abnormal. MPV (test code = 41252-5) 8.5 fL 9.5-12.9 L NRBC/100 WBC (test code = 8697242939) See_Comment [Automated SimpliField ssage] The system which generated this result transmitted reference range: 0.0 - 10.0 /100 WBCs. The reference range was not used to interpret this result as normal/abnormal. NRBC x10^3 (test code = 0918553647) <0.01 See_Comment [Automated messa ge] The system which generated this result transmitted reference range: 10*3/?L. The reference range was not used to interpret this result as normal/abnormal. GRAN MAT (NEUT) % (test code = 770-8) 78.3 % IMM GRAN % (test code = 5941139468) 0.40 % LYMPH % (test code = 736-9) 15.4 % MONO % (test code = 5905-5) 4.8 % EOS % (test code = 713-8) 0.1 % BASO % (test code = 706-2) 1.0 % GRAN MAT x10^3(ANC) (test code = 7913403923) 7.15 10*3/uL 1.88-7.09 H IMM GRAN x10^3 (test code = 8470654457) 0.04 10*3/uL 0.00-0.06 LYMPH x10^3 (test code = 731-0) 1.41 10*3/uL 1.32-3.29 MONO x10^3 (test code = 742-7) 0.44 10*3/uL 0.33-0.92 EOS x10^3 (test code = 711-2) <0.03 0.03-0.39 L BASO x10^3 (test code = 704-7) 0.09 10*3/uL 0.01-0.07 H Lab Interpretation (test code = 23363-4) Abnormal [facility] Consult Notes Date/Time Note Provider Source 2024-08-10 12:16:49 Associated Order(s): IP CONSULT TO SOCIAL WORK Reason For Consult SW consulted for transport home. Pt transferred from [place]. SW spoke with pt at bedside, pt states she is going to her friend's [place] ([phone]) home at [address] [place] [address]. Pt is wheelchair bound and does not have wheelchair here. SW arranged [facility] Rig Builder [facility] 2024-01-10 12:39:30 Associated Order(s): CONSULT CARDIOLOGY [facility] Cardiology Consult PCP: PATIENT DOES NOT HAVE A PCP Date of Service: 01/10/2024 CHIEF COMPLAINT/reason for consult: Chest pain HISTORY OF PRESENT ILLNESS This is a 53 years old female with past medical history of smoking, COPD, hypertension, obesity, nonobstructive coronary artery disease, systolic and diastolic heart failure, left ventricular thrombosis and pulm hypertension. She presented to [facility] emergency room with chest pain. She has [...] (chronic obstructive pulmonary disease) Diverticulitis Epilepsy Hypertension VT (myocardial infarction) 07/20/2007 Slipped disc Stomach cancer Substance abuse Marijuana daily-for anxiety Past Surgical History: Procedure Laterality Date ANTERIOR CERVICAL FUSION CHOLECYSTECTOMY HAND/FINGER SURGERY UNLISTED Bilateral 3 L hand, 3 R hand METATARSAL OSTEOTOMY Right 08/14/2015 Surgeon: Luis Jones Jr., DPM; Location: [facility] TONSILLECTOMY Family History Problem Relation Age of [...] pulmonary disease) Obesity Coronary artery disease involving naknek coronary artery of naknek heart without angina pectoris Snores Cigarette smoker [...] further assistance. Kylee Diego MD, FACC, AMADOR Cytology Teacher Division of Cardiovascular Medicine [facility] [email or web address] 2023-12-15 08:28:19 Associated Order(s): CONSULT CARDIOLOGY [facility] Cardiology Consult PCP: PATIENT DOES NOT HAVE A PCP Date of Service: 12/15/2023 CHIEF COMPLAINT/reason for consult: Heart failure HISTORY OF PRESENT ILLNESS This is a 53 years old female with past medical history of smoking, COPD, hypertension, obesity, nonobstructive coronary artery disease, systolic and diastolic heart failure, left ventricular thrombosis and pulm hypertension. She presented to [facility] emergency room with dyspnea, chest pain and [...] (chronic obstructive pulmonary disease) Diverticulitis Epilepsy Hypertension VT (myocardial infarction) 07/20/2007 Slipped disc Stomach cancer Substance abuse Marijuana daily-for anxiety Past Surgical History: Procedure Laterality Date ANTERIOR CERVICAL FUSION CHOLECYSTECTOMY HAND/FINGER SURGERY UNLISTED Bilateral 3 L hand, 3 R hand METATARSAL OSTEOTOMY Right 08/14/2015 Surgeon: Luis Jones Jr., DPM; Location: [facility] TONSILLECTOMY Family History Problem Relation Age of [...] pain, unspecified type Coronary artery disease involving naknek coronary artery of naknek heart without angina pectoris Snores Cigarette smoker [...] further assistance. Kylee Diego MD, FACC, AMADOR Cytology Teacher Division of Cardiovascular Medicine [facility] 2023-11-27 14:57:00 Associated Order(s): CONSULT ADULT PHYSICAL THERAPY 11/27/2023 Physical therapy note: Duplicate consult. Sami Teran,PT, DPT,CMSR Sami Teran PT [facility] 2023-11-25 10:16:00 Associated Order(s): CONSULT ADULT PHYSICAL [...] (chronic obstructive pulmonary disease) Diverticulitis Epilepsy Hypertension VT (myocardial infarction) 07/20/2007 Slipped disc Stomach cancer Substance abuse Marijuana daily-for anxiety PSH: Past Surgical History: Procedure Laterality Date ANTERIOR CERVICAL FUSION CHOLECYSTECTOMY HAND/FINGER SURGERY UNLISTED Bilateral 3 L hand, 3 R hand METATARSAL OSTEOTOMY Right 08/14/2015 Surgeon: Luis Jones Jr., ESTHER; Location: [facility] TONSILLECTOMY Prior Living Situation: lives with her [...] -Pain Management: Nursing Notified COMMUNICATION Primary Language: Albanian Able to Verbalize needs: Yes Vision:good; no [...] 30 min Sami Teran PT, DPT,CMSR T [facility] - Health History and Physical Notes Date/Time [...] on blood thinners. Pt was transferred to [facility] for a higher level of care [...] on blood thinners. Pt was transferred to [facility] ED for a higher level of care [...] repeat CT brain without contrast. Please call [phone] to schedule an appointment. Importance of follow up and red flags symptoms discussed with patient. She was counseled on not take ASA or blood thinners. - Please call [phone] with NSGY questions or concerns Prakash Eckert MD [facility] Neurosurgery Cosigned by Gus Jamison MD at 08/10/2024 8:06 AM PONY RIDE ATTENDANT RIDE ATTENDANT RIDE ATTENDANT Associated attestation - Gus Jamison MD - 08/10/2024 8:06 AM PONY RIDE ATTENDANT I have reviewed the case and imaging. The CT shows minimal, unchanged hemorrhage that does not require intervention. We will defer further management to the ER and neurology. Please call [phone] with questions. Neurosurgery Physician Jeffry Bolaños 2024-01-09 22:04:15 [facility] Hospitalist Admission H&P Date of Service: 01/09/2024 CHIEF COMPLAINT: Patient with complaints of chest pain and a history of cardiomyopathy with left ventricular thrombus HISTORY OF PRESENT ILLNESS Heather Turner is a 53 year old female who presents with chest discomfort. Patient had extensive cardiac workup done recently at [facility]. At that time, patient was [...] a while. Patient recently started coming to [facility] as she had been going to [facility]. At this time, she will be [...] (chronic obstructive pulmonary disease) Diverticulitis Epilepsy Hypertension VT (myocardial infarction) 07/20/2007 Slipped disc Stomach cancer Substance abuse Marijuana daily-for anxiety Pseudoseizures PAST SURGICAL HISTORY Past Surgical History: Procedure Laterality Date ANTERIOR CERVICAL FUSION CHOLECYSTECTOMY HAND/FINGER SURGERY UNLISTED Bilateral 3 L hand, 3 R hand METATARSAL OSTEOTOMY Right 08/14/2015 Surgeon: Luis Jones Jr., ESTHER; Location: [facility] OR Location TONSILLECTOMY ALLERGIES Allergies Allergen [...] pulmonary edema versus atypical pneumonia. RL: [address] [facility]: [id number] End of report CHEST 1 VW Narrative [...] consolidation or pleural effusion. No pneumothorax. RL: 2154 End of Report SSMENT: 1. Chest pain [...] given high risk of morbidity and mortality. [place] CHIEF OPERATOR REFORMER was verified during stay Darrick Fry MD T [facility] 2023-12-14 22:42:40 [facility] [employer] ADMIT H&P Date of Service: 12/14/2023 CHIEF COMPLAINT: shortness of breath Subjective History of Present Illness 53 year old female with a PMH significant for HFrEF (15-20% on 11/22/23) w/ LV thrombus, RLE DVT, RLL segmental PE, HTN, smoker, COPD, chronic low back pain, depression presenting from [facility] ED due to chest heaviness [...] (chronic obstructive pulmonary disease) Diverticulitis Epilepsy Hypertension VT (myocardial infarction) 07/20/2007 Slipped disc Stomach cancer Substance abuse Marijuana daily-for anxiety Past Surgical History: Procedure Laterality Date ANTERIOR CERVICAL FUSION CHOLECYSTECTOMY HAND/FINGER SURGERY UNLISTED Bilateral 3 L hand, 3 R hand METATARSAL OSTEOTOMY Right 08/14/2015 Surgeon: Luis Jones Jr., ESTHER; Location: [facility] TONSILLECTOMY Family History Problem Relation Age of [...] On Eliquis Code Status: Full Code T [facility] EMERGENCY PHYSICIAN STAFF [facility] 2023-11-22 13:30:57 CCU Team Admit H&P Date [...] lumbar spinal stenosis, and depression presenting from [facility] ED due to SOB. Patient [...] (chronic obstructive pulmonary disease) Diverticulitis Epilepsy Hypertension VT (myocardial infarction) 07/20/2007 Slipped disc Stomach cancer Substance abuse Marijuana daily-for anxiety Prior to Admission medications Medication Sig Start Date End Date Taking? Authorizing Provider metoprolol succinate XL 25 mg 24 hr tablet Take 1 tablet by mouth every morning. 05/11/23 Yes Doctor Unassigned, [place] spironolactone 25 mg tablet Take 1 tablet by mouth in the morning and 1 tablet in the evening. 09/30/23 Yes Doctor Unassigned, [place] DULoxetine 30 mg capsule Take 1 capsule by mouth in the morning. Doctor Unassigned, [place] furosemide 20 mg tablet Take 1 tablet by mouth every morning and evening. Doctor Unassigned, [place] Lacosamide (VIMPAT) 100 mg tablet Take 1 [...] 8 (eight) hours as needed. Doctor Unassigned, [place] pantoprazole 40 mg EC tablet Take 40 mg by mouth daily. Doctor Unassigned, [place] amLODIPine (NORVASC) 10 mg tablet Take 1 Tab by mouth daily. 09/20/15 Kylee Diego MD carvedilol (COREG) 6.25 mg tablet Take 1 Tab by mouth 2 (two) times daily with meals. 09/20/15 Kylee Diego MD lisinopril (PRINIVIL,ZESTRIL) 40 mg tablet Take 1 Tab by mouth daily. 09/20/15 Kylee Diego MD loratadine (CLARITIN LIQUI-GEL) 10 mg capsule Take by mouth daily. Doctor Unassigned, [place] MULTIVITAMIN ORAL Take 1 Tab by mouth daily. Doctor Unassigned, [place] omega-3 fatty acids-vitamin E (FISH OIL) 1,000 mg capsule Take 1 g by mouth daily. Doctor Unassigned, [place] Allergies Allergen Reactions Green Tea Other - See comments Seizures Diclofenac Hypertension Keppra [Levetiracetam] Other - See comments Makes seizures worse Past surgical history: Past Surgical History: Procedure Laterality Date ANTERIOR CERVICAL FUSION CHOLECYSTECTOMY HAND/FINGER SURGERY UNLISTED Bilateral 3 L hand, 3 R hand METATARSAL OSTEOTOMY Right 08/14/2015 Surgeon: Luis Jones Jr., DPM; Location: [facility] TONSILLECTOMY Allergies: Allergies Allergen Reactions Green [...] Otherwise, Sonographically unremarkable right upper quadrant. RL: 3936 HS:Y CHEST PULMONARY ANGIOGRAM Result Date: 11/22/2023 1. Right lung lower lobe segmental pulmonary embolism. The patient is already on anticoagulation for lower extremity DVT. 2. Mild cardiomegaly. 3. Left adrenal nodule consider follow-up with elective contrast CT. ___ XR SHOULDER 2+ VW RIGHT Result Date: 11/22/2023 Impression: 1. No acute osseous abnormality. 2. Chronic findings as detailed. RL: 4215 End of Report LOWER EXTREMITY VEIN WITH [...] on TTE, currently on heparin gtt. Negative [place] Criteria. Blood cultures NGTD. Received cefepime 1 [...] ordering referrals and/or communicating with other health manager care (not separately reported), documenting clinical information in the electronic or other health record, and care coordination (not separately reported). 53 yo F with cardiogenic shock and PE Acute decompensated HFrEF NSTEMI Pulmonary embolism Polysubstance use LV thrombus COPD Elevated lactate- started on milrinone on 11/21 Continue milrinone Continue anticoagulation RHC/LHC today for BiV failure Cr Fry MD Children'S Nursery Assistant [facility] Cardiology 11/23/23 [facility] [email or web address] 2023-11-22 02:28:50 MEDICINE [place] H&P PCP: PATIENT DOES NOT HAVE A PCP Date of Service: 11/21/2023 CHIEF COMPLAINT: SOB History of Present Illness Heather Turner is a 53 year old female with a PMH significant for HFrEF (~35% 05/2023), HTN, Smoker, COPD, chronic low back pain, depression presenting from [facility] ED due to SOB. Pt states her home pulse ox was reading 86% and was having trouble catching her breath. Associated sx include PETERSON, orthopnea, CP that is substernal, pressure-like, and non radiating. She says the SOB started earlier today with productive cough. Denies fevers or chills. No recent sick contacts. States she was treated for pneumonia at [place] 2 weeks ago with levaquin and prednisone [...] (chronic obstructive pulmonary disease) Diverticulitis Epilepsy Hypertension VT (myocardial infarction) 07/20/2007 Slipped disc Stomach cancer Substance abuse Marijuana daily-for anxiety Past Surgical History: Procedure Laterality Date ANTERIOR CERVICAL FUSION CHOLECYSTECTOMY HAND/FINGER SURGERY UNLISTED Bilateral 3 L hand, 3 R hand METATARSAL OSTEOTOMY Right 08/14/2015 Surgeon: Luis Jones Jr., ESTHER; Location: [facility] TONSILLECTOMY Family History Problem Relation Age of [...] Depakote - c/w flomax Pain UncontrolledTylenol and [place] Prophylaxis: DVT- heparin Stress Ulcer: pantoprazole Code [...] results to the patient. Ivis Mcdermott MD Children'S Nursery Assistant Department of Internal Medicine Division of Cardiovascular Disease [facility] - Health Procedure Notes [...] mg Access site: right radial artery, RIJ Heber 4.0 5fr 8 Fr IJ sheath Odell Rosalba Closure Method: TR Band, manual pressure [...] was present for the entire procedure. [facility] Associated attestation - Cris [...] sided failure. Cris Molina MD associate professor of criminal justice. Division of cardiovascular medicine [facility] IM-CARDIOVASCULAR DISEASE [facility] - Health Notes Date/Time Note Provider Source Referral ID Status Reason Start Date Expiration Date Visits Requested Visits Authorized [id number] Pending Review Specialty Services Required 08/10/2024 02/06/2025 1 1 RIDE ATTENDANT* Consultation (Urgent) - Pending Review Specialty Diagnoses / Procedures Referred By Contac t Referred To Contact Family Medicine Diagnoses Breakthrough seizure (CMS/HCC) (HCC) Subdural hematoma (HCC) Closed head injury, initial encounter Nonintractable epilepsy without status epilepticus, unspecified epilepsy type (HCC) Procedures [place] OFFICE/OUTPATIENT NEW HIGH MDM 60 MINUTES Dipak Colindres MD [address] [place] [address] Phone: tel: fax: Referral ID Status Reason Start Date Expiration Date Visits Requested Visits Authorized [id number] Pending Review Specialty Services Required 08/10/2024 02/06/2025 1 1 RIDE ATTENDANT* Imaging (Routine) - Pending Review Specialty Diagnoses / Procedures Referred By Contac t Referred To Contact Radiology Procedures CT brain wo IV contrast Dipak Colindres MD [address] [id number] Phone: tel: fax: Referral ID Status Reason Start Date Expiration Date V isits Requested Visits Authorized [id number] Pending Review 08/10/2024 02/06/2025 1 1 RIDE ATTENDANT* Consultation (Urgent) - Pending Review Specialty Diagnoses / Procedures Referred By Contac t Referred To Contact Neurosurgery Diagnoses Subdural hematoma (HCC) Dipak Colindres MD [address] [address] Phone: tel: fax: Referral ID Status Reason Start Date Expiration Date Visits Requested Visits Authorized [id number] Pending Review Specialty Services Required 08/10/2024 02/06/2025 1 1 RIDE ATTENDANT [facility]ip[facility]lp8500[facility]16-31 15:10:22* [facility] Tyler[facility]ceujee8942-26-20 15:10:22* Calculated C-SSRS Risk Score (Lifetime/Recent) Answer Date of Assessment Author No Risk Indicated 08/10/2024 8:53 AM PONY RIDE ATTENDANT Malinda Buckley RN * [place] Suicide Severity Rating Scale (Screener/Recent Self-Report) Question Answer Date of Assessment Author 1. Wish to be (Past 1 Month) No 025 8:53 AM Malinda Gates RN 2. Non-Specific Active Suici tomy Thoughts (Past 1 Month) No 08/10/2024 8:53 AM Malinda Gates RN 6. Suicidal Behavior (Lifetime) No 8:53 AM PONY RIDE ATTENDANT Malinda Buckley RN [facility] TylerTogdmga7154-97-17 15:10:22* Loida Flores MD - 08/10/2024 12:37 PM PONY RIDE ATTENDANT General Neurology Initial Consultation Note Name: Heather [...] Dr. Sandra Mahmood MD Resident Physician Neurology [facility] | [facility] Subjective History of Present Illness: Heather Turner [...] at outside hospitals. She was transferred to [facility] ED for a higher level of care [...] Resource Strain: Low Risk (12/03/2023) Received from [facility] Overall Financial Resource Strain (CARDIA) Difficulty of Paying Living Expenses: Not very hard Food Insecurity: Food Insecurity Present (12/03/2023) Received from [facility] Hunger Vital Sign Worried About Running Out of Food in the Last Year: Sometimes true Ran Out of Food in the Last Year: Sometimes true Transportation Needs: No Transportation Needs (12/03/2023) Received from [facility] PRAPARE - Transportation Lack of Transportation (Medical): No Lack of Transportation (Non-Medical): No Recent Concern: Transportation Needs - Unmet Transportation Needs (11/26/2023) Received from [facility] PRAPARE - Transportation Lack of Transportation (Medical): Yes Lack of Transportation (Non-Medical): Yes Physical Activity: Inactive (12/03/2023) Received from [facility] Exercise Vital Sign Days of Exercise per Week: 0 days Minutes of Exercise per Session: 0 min Stress: Not on file Social Connections: Unknown (12/03/2023) Received from [facility] Social Connection and Isolation Panel [NHANES] Frequency [...] Housing Stability: High Risk (12/03/2023) Received from [facility] Housing Stability Vital Sign Unable to Pay [...] RES. This report was dictated by a Riveting Machine Operator Tape Control/Fellow/NOHELIA: Roman Zendejas RES 08/10/2024 6:43 This report was dictated by a Riveting Machine Operator Tape Control/Fellow/Physician Brim Cutter. I have personally reviewed the images as well as the interpretation and agree with the findings. Report finalized by: Roberto Marina MD 08/10/2024 8:52 No MRI head results found for the past 14 days No EEG results found for the past 14 days I performed nchw-ba-kgxa diagnostic evaluation of this patient.I have reviewed [...] can be done outpatient. Loida FloresVascular Neurology/Neurohospitalist, [facility] Children'S Nursery Assistant, [facility] RIDE ATTENDANT RIDE ATTENDANT RIDE ATTENDANT RIDE ATTENDANT [facility] TylerSpjwnva8721-65-24 15:10:22Pending Results Scheduled Orders Name Type Priority [...] on patient's age to complete this topic [facility] TylerRdhdlvr6406-08-86 15:10:22 Diagnosis Subdural hematoma (HCC) - Primary Subdural hemorrhage Breakthrough seizure (CMS/HC C) (HCC) Closed head injury, initial encounter Nonintractable epilepsy with out status epilepticus, unspecified epilepsy type (HCC) Acute cystitis with hematuri a Seizure (HCC) Other convulsions Subdural hemorrhage (HCC) Subdural hemorrhage [facility] TylerQeqbtht2658-50-81 15:10:22 [facility] TylerYcjxbqs0775-08-69 06:02:36 [facility] TylerTmjsytx1351-45-63 06:02:36* Imaging (Routine) - Pending Review Specialty Diagnoses / Procedures Referred By Contac t Referred To Contact Radiology Procedures CT external head System, Provider Not In Referral ID Status Reason Start Date Expiration Date V isits Requested Visits Authorized [id number] Pending Review 08/10/2024 02/06/2025 1 1 RIDE ATTENDANT [facility] Qkpwpqw4970-68-22 06:02:36Upcoming Encounters Health Maintenance Due Date Last [...] on patient's age to complete this topic [facility] Bzyfrpq4916-37-49 00:54:53 Summary: Discharge Images from the original [...] daughter, in no apparent distress, Alma Gould [place] 619384-09-15 00:10:43 Report to Campbell CAMPOS. Ely Hernández [place] 21588-09-14 22:25:58 Pt having seizure like activity as I walked in pt. Activity lasting about 40 seconds. Pt alert and able to answer questions immediately after activity. Yesenia Hightower [place] 619384-09-14 20:44:51 Pt arrived via person with complaints of feeling like her heart failure was acting up and her pulse ox machine was reading 94% and Hr 61 at home which is low for her. Pt states she has had 6 seizures today. Was seen at [facility] and reports no test were performed [...] meds for a month d/t financial issues. 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 Mireille Cardenas [place] [id number] 21:59:00 Associated Order(s): EKG-12 Lead ONCE Pre-Procedure Diagnose(s): Chest pain, unspecified type Post-Procedure Diagnose(s): Chest pain, unspecified type [facility] Emergency Department Note Patient Name: Heather Turner Date of : 1970 53 year old female Treatment Room: TX1/TX1 Primary Care Physician: Lb Lieberman Patient Escorted by: Family [5] Mode of Arrival: Personal means [1] EMS Treatment Prior to ED Arrival: CUSTOMER INSIGHT ANALYST treatment comments: prescription meds Travel and Exposure [...] (chronic obstructive pulmonary disease) Diverticulitis Epilepsy Hypertension VT (myocardial infarction) 07/20/2007 Slipped disc Stomach cancer [...] 08/14/2015 Surgeon: Luis Jones Jr., DPM; Location: [facility] TONSILLECTOMY Review of Systems: Review of Systems [...] 0.01 - 0.07 10*3/uL COMP. METABOLIC PANEL (24813) - Abnormal NA 140 135 - 145 [...] VW Cbc with Diff Comp. Metabolic Panel (84911) Troponin I Orders Placed This Encounter Medications [...] ED Physician in the absence of a process safety engineer: yes Previous ECG: Previous ECG: Unavailable Interpretation: [...] signed by: Radha Wyatt MD 01/12/24 2342 [facility] - Voknjw2267-00-97 16:22:00 TRANSITIONAL CARE MANAGEMENT ASSESSMENT 01/12/2024 Heather Turner [id number] Heather Turner is a 53 year old /White female was admitted on 01/09/24 to [facility] ICU. She was discharged on 01/10/24 with discharge disposition of HR- Routine Discharge. Admitting Physician: Darrick Fry Discharge Diagnosis: Hypotension No linked episodes TCM Ark-dglz-vi-face outreach documentation: Care Transition CM made f/u call to pt post-discharge x2. No response and call went to voicemail. CM left a discreet message with purpose of call and CM's call back information. Discharge Assessment Chart Assessed: 01/12/24 TCM Outreach Completed: 01/12/24 Future Appointments: Veronique Carrillo RNKet[facility] Medical CenterLlrskp4066-58-87 11:40:32 Care Transition CM made f/u call to pt post-discharge. No response and call went to voicemail. CM left a discreet message with purpose of call and CM's call back information. Veronique Carrillo RN, BSN [employer] Hay Sorter-Transitions of Care [phone] [facility] CenterAmogrc9097-13-00 15:32:40 Problem: Discharge Planning Goal: Adequate for [...] RN Outcome: Adequate for discharge Addis Bates [facility] CenterTdqsmd7829-86-54 15:32:28 Problem: Discharge Planning Goal: Adequate for [...] in pain sensation Outcome: Adequate for discharge [facility]2024-06-23 14:55:21 Problem: Discharge Planning Goal: Adequate for [...] in pain sensation Outcome: Adequate for discharge Wyane Merrill RNRE[facility] - Owtsdv2489-71-48 01:16:51 Problem: Discharge Planning Goal: Adequate for [...] sensation Outcome: Progressing as expected Alexandria Walsh RNKettering Health – Soin Medical CenterAfidzb7373-13-91 22:42:54 Patient admitted to IMU for diagnosis of pneumonia, elevated D-dimer, hypotension, chest pain. Patient agrees to admission, discussed plan of care with patient and family. Patient is awake, alert, oriented, resp reg unlabored, color appropriate for race, PIV intact x2. No adverse reaction to medications administered while in ED. Belongings with patient to unit. Report to BETH Reyez. [place] 412254-06-22 22:35:43 Report given to BETH Reyez IMU [place] 651534-06-22 20:04:51 Patent resting Sheri Harding [place] 619384-06-22 16:09:08 Patient states: "I started having chest pain this morning" Reports history of VT, blood clots in heart, lung and legs, CHF. Malinda Andres [facility] CenterGuwebf3396-97-42 16:07:00 Associated Order(s): EKG-12 Lead ROUTINE ONCE Pre-Procedure Diagnose(s): Chest pain, unspecified type Post-Procedure Diagnose(s): Chest pain, unspecified type [facility] Emergency Department Note Patient Name: Heather Turner Date of : 1970 53 year old female Treatment Room: NV2/NV2 Primary Care Physician: Lb Lieberman Patient Escorted [...] SOB that started this morning. Hx of VT, PE and CHF. She rated her pain [...] vomiting or diarrhea. History provided by: Patient resource room teacher used: No Past Medical History/Immunizations: Past Medical History: Diagnosis Date Anxiety Extreme Bipolar disorder Breast pain 09/18/2015 Cauda equina compression 11/21/2023 diagnosed 08/2023 Congestive heart failure 2021 COPD (chronic obstructive pulmonary disease) Diverticulitis Epilepsy Hypertension VT (myocardial infarction) 07/20/2007 Slipped disc Stomach cancer [...] OSTEOTOMY Right 08/14/2015 Surgeon: Luis Jones Jr., DP; Location: [facility] TONSILLECTOMY Review of Systems: Review of Systems [...] TROPONIN I N-TERMINAL PRO-BNP COMP. METABOLIC PANEL (64714) D-DIMER Orders Placed This Encounter Medications aspirin [...] ED Physician in the absence of a process safety engineer: yes Previous ECG: Previous ECG: Compared to [...] SOB that started this morning. Hx of VT, PE and CHF. She rated her pain [...] SOB that started this morning. Hx of VT, PE and CHF. She rated her pain [...] and patient evaluation by RUBY Berman MD, [facility] Emergency Medicine [facility] CenterIqhixf0438-93-60 10:18:53 Care Transitions Nurse CM made f/u call to patient post-discharge. No answer, call went to voicemail. CM left discreet message with CM's call back information. CM will try again at a later time. MANSOOR Lindsey, RN, CCRN [employer] Hay Sorter, Transitions of Care [email or web address] Jodi Berg RNKettering Health – Soin Medical CenterFasomr3811-23-33 10:45:32 Problem: Respiratory Function - Impaired Goal: [...] communication Outcome: Adequate for discharge Delaney Laird [facility] CenterXtcxne5919-59-52 05:41:00 Problem: Respiratory Function - Impaired Goal: [...] Effective communication Outcome: Progressing as expected T [facility] CenterXmrhjm9606-96-56 18:20:42 Patient admitted to [facility] ADC 2215 for diagnosis of shortness of breath. Patient agrees to admission, discussed plan of care with patient and family. Patient is awake, A&Ox4, RR even and unlabored on RA. Color appropriate for race. PIV intact x1. No adverse reaction to medications administered while in ED. Belongings with patient to unit. [facility]2024-05-27 18:19:06 Nurse Report Report given to BETH Romero. Chief complaint, assessment findings, infusion verify and orders reviewed. Plan of care discussed with patient and both nurses. Patient/family members verbalized understanding. Lisette Murphy RN [facility]2024-05-27 14:54:55 Report given to Amy Murphy RN. Updated on patient's medical condition, history of present condition and plan of care. T Leo Hyde [facility] CenterYzebqt0622-61-64 13:30:46 Patient arrived in wheelchair with c/o shortness of breath starting this morning. Patient attempted to try her albuterol at home with no success. Patient attempt to feel better with husbands oxygen. Started to complaining of reproducible chest pain approximately 2 hours ago. Hx: CHF [facility] Lisette Murphy [facility] CenterXcblwh7616-34-53 13:24:00 AdmissionCare Guideline: Chest Pain - OBS, [...] documentation entered by: Mj Bryan [facility], edition, Copyright ? 2022 [facility] [employer] All Rights Reserved. [id number]:48:23-05:00 T [facility] CenterKalphq9351-89-98 18:26:32 Pt requesting to leave AMA, patient educated on risks, and benefits of leaving AMA. Patient continues to request to leave AMA. CCU notified of patients request. Patient educated on risk and benefits. AMA paperwork signed by patient. Duong Tello [facility] CenterJcjunj0857-55-37 14:42:13 Problem: Respiratory Function - Impaired Goal: Adequate oxygenation Outcome: Progressing as expected Goal: Adequate work of breathing Outcome: Progressing as expected Problem: Falls, Risk of Goal: Absence of falls Outcome: Progressing as expected T [facility] CenterHugejl1282-58-66 17:16:35 Report to Rad with EM, care transferred Sheri Tompkins [facility] CenterXxmvtz1605-15-73 16:47:06 Nurse Report Report given to Duong CAMPOS at [facility], Chief complaint, assessment findings, infusion verify and orders reviewed. Sheri Tompkins RN T [place] 651534-05-15 16:40:00 Pt tolerating bipap, updated on status, skinw/d [place] 651534-05-15 16:09:00 Placed on bedpan [facility] CenterFuwcds7684-33-70 16:08:24 Report to Turner CAMPOS. 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 Selina Llanes [facility] CenterYwztha8044-47-59 12:56:00 Associated Order(s): EKG-12 Lead ROUTINE ONCE Pre-Procedure Diagnose(s): Other chest pain Post-Procedure Diagnose(s): Other chest pain [facility] Emergency Department Note Patient Name: Heather Turner Date of : 1970 53 year old female Treatment Room: NV1/NV1 Primary Care Physician: PATIENT DOES NOT HAVE A PCP Patient Escorted by: Family [5] Mode of Arrival: Personal means [1] EMS Treatment Prior to ED Arrival: CUSTOMER INSIGHT ANALYST treatment: Medication (comment) CUSTOMER INSIGHT ANALYST treatment comments: tylenol PM X2 at 0830, [...] began today. PT was recently admitted to [facility] ICU for PE, chf and [...] (chronic obstructive pulmonary disease) Diverticulitis Epilepsy Hypertension VT (myocardial infarction) 07/20/2007 Slipped disc Stomach cancer [...] 08/14/2015 Surgeon: Luis Jones Jr., DPM; Location: [facility] TONSILLECTOMY Review of Systems: Review of [...] 0.01 - 0.07 10*3/uL COMP. METABOLIC PANEL (28118) - Abnormal NA 138 135 - 145 [...] VW Cbc with Diff Comp. Metabolic Panel (74168) Troponin I N-Terminal Pro-Bnp BLOOD CULTURE SCREEN [...] interpretation with external provider(s): Dr. Suero of [facility] cardiology accepting to CCU. Risk [...] signed by: Connor Renee MD 12/02/23 1632 [facility] - Mpdxsv4741-58-61 10:36:39 TRANSITIONAL CARE MANAGEMENT ASSESSMENT 12/01/2023 Heather Turner [id number] Heather Turner is a 53 year old /White female was admitted on 11/21/[address] She was discharged on 11/28/23 with discharge disposition of HR- Routine Discharge. Admitting Physician: Cr Fry Discharge Diagnosis: Decompensated acute on chronic HFrEF 15-20% EF Cardiogenic shock NSTEMI 2/2 stress induced cardiomyopathy 2/2 PE and drug use No linked episodes TCM Rhf-mdcb-na-face outreach documentation: Discharge Assessment Chart Assessed: 12/01/23 [...] cost of $44. 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 to community marketing manager .) Do you know how to take your medications?: Yes Supplies Did you receive applicable home medical supplies/equipment?: N/A Follow Up Appointment Has a follow up appointment been scheduled?: No May I assist with scheduling this appointment?: Patient has outside PCP (Patient stated she was told that her providers at at [facility] and will not be following [facility]) Do you have any questions about your [...] stated she has to follow up with [facility] Do you understand your discharge instructions? 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 No unable [...] N/A Ensure they have contact info for [employer]: na Have you received your DME? N/A [...] go to the emergency room Madeline Mckinley RNRE[facility] - Bqhzkb7842-45-96 10:41:04 TRANSITIONAL CARE MANAGEMENT ASSESSMENT 11/30/2023 Heather Turner [id number] Heather Turner is a 53 year old /White female was admitted on 11/21/[address] She was discharged on 11/28/23 with discharge disposition of HR- Routine Discharge. Admitting Physician: Cr Fry Discharge Diagnosis: Decompensated acute on chronic HFrEF 15-20% EF Cardiogenic shock NSTEMI 2/2 stress induced cardiomyopathy 2/2 PE and drug use No linked episodes TCM Wlr-kiqf-md-face outreach documentation: Transition CM attempted to contact patient for post discharge follow up. CM left a message with male friend contact as he stated patient was asleep and not available. Future Appointments: Madeline Mckinley [facility] CenterBamyyl1130-99-53 15:39:19 Problem: Bleeding, Risk of Goal: Absence [...] breakdown Outcome: Adequate for discharge Aliyah Francisco [facility] CenterSxtyrf6496-91-79 14:00:02 Problem: Discharge Planning Goal: Adequate for [...] Outcome: Progressing as expected 11/27/2023950 by Merlyn Ndiyae, BETH Outcome: Progressing as expected Problem: Activity Intolerance [...] RN Outcome: Progressing as expected Merlyn Ndiaye [facility] - Uklehf5098-78-72 09:51:54 Problem: Bleeding, Risk of Goal: Absence [...] skin breakdown Outcome: Progressing as expected [facility]2024-05-10 05:16:42 Problem: Bleeding, Risk of Goal: Absence [...] breakdown Outcome: Progressing as expected [facility] Mariely Wallace [facility] CenterQofnit6824-84-86 17:12:17 Problem: Bleeding, Risk of Goal: Absence [...] skin breakdown Outcome: Progressing as expected [facility]2024-05-08 05:27:41 Problem: Bleeding, Risk of Goal: Absence [...] breakdown Outcome: Progressing as expected Luda Vee [facility] CenterAfikbp1300-54-64 18:52:11 Summary: [facility] [place] Note Spoke with Rich Spencer from [facility] [place] at 18:12. Case #[id number]. Brice Jackson [facility] CenterNstyzw2335-80-20 10:16:03 Problem: Bleeding, Risk of Goal: Absence [...] skin breakdown Outcome: Progressing as expected [facility]2024-05-06 10:41:53 Problem: Bleeding, Risk of Goal: Absence [...] Brice Jackson RN Outcome: Progressing as expected [facility] - Pfwqlo3081-61-55 10:40:04 Problem: Bleeding, Risk of Goal: Absence [...] skin breakdown Outcome: Progressing as expected T [facility] CenterEtvmgw0242-78-83 05:54:04 Problem: Bleeding, Risk of Goal: Absence [...] Outcome: Progressing as expected T Hamlet Osullivan [facility] CenterKvwskk0230-62-39 23:58:07 Patient transferred to [place] for diagnosis of chest pain, NSTEMI, COPD exacerbation Patient agrees to transfer/admit plan and verbalized understanding of plan of care, family aware of plan Patient awake alert, oriented, resp reg unlabored, skin w/d PIV patent, no s/s infiltration noted, heparin infusing No adverse reaction to medications given while in ED. Report given to [facility] EMS personnel Nery Orellana RNKet[facility] CenterHwgkvu4511-41-36 23:55:09 Nurse Report Report given to BETH Zuleta in [place]. Chief complaint, assessment findings, infusion verify and orders reviewed. Plan of care discussed with nurse. Nery Orellana RN [facility]2024-05-04 23:18:14 Associated Order(s): Critical Care Critical Care [...] billable procedures and treating other patients. [facility]2024-05-04 23:11:13 Pt c/o difficulty breathing at this time. Pt placed on 2L O2 NC for comfort. TNEY Diehl [facility]2024-05-04 21:15:59 Summary: Triage CC: patient family [...] self Appears in mild distress Alma Gould [facility]RE[facility] - Yddjjy5776-43-53 21:07:00 EMERGENCY DEPARTMENT ENCOUNTER [facility] Patient Name: Heather Turner Date of : 1970 53 year old Exam [facility] Primary Care Physician: PATIENT DOES NOT HAVE A PCP Pre- Hospital Patient Escorted by: Family [5] Mode of Arrival: Personal means [1] EMS Treatment Prior to ED Arrival: CUSTOMER INSIGHT ANALYST treatment: None ED Events Date/Time Event User [...] (chronic obstructive pulmonary disease) Diverticulitis Epilepsy Hypertension VT (myocardial infarction) 07/20/2007 Slipped disc Stomach cancer Substance abuse Marijuana daily-for anxiety Tetanus received in last 5 years: Unknown Childhood immunizations: Up-to-date Past Surgical History Past Surgical History: Procedure Laterality Date ANTERIOR CERVICAL FUSION CHOLECYSTECTOMY HAND/FINGER SURGERY UNLISTED Bilateral 3 L hand, 3 R hand METATARSAL OSTEOTOMY Right 08/14/2015 Surgeon: Luis Jones Jr., ESTHER; Location: [facility] TONSILLECTOMY Allergies Allergies Allergen Reactions Green [...] PLT ESTIMATE Normal Normal COMP. METABOLIC PANEL (68242) - Abnormal NA 134 (*) 135 - [...] (1 View), 11/21/2023 9:15 PM. Ordering Physician: MEAGN RONDON. History: Chest pain. Technique: One view [...] VW CBC WITH DIFF COMP. METABOLIC PANEL (71913) AMYLASE TROPONIN I N-TERMINAL PRO-BNP URINALYSIS URINE [...] exacerbation. She will be transferred down to [place] to the [place] team in the cardiology department for further [...] on file Megan Rondon Jr., MD Clinical Children'S Nursery Assistant [facility] Emergency Department [employer] is used frequently and may produce errors. Promptly contact for obvious discrepancies. Megan Rondon MD 11/21/23 [id number] [facility] - [id number] 11:34:02 Chief Complaint Patient presents with Follow-up Hospitalization [facility]N [facility] [id number] 16:08:34 Bryan spoke to patient and patient decided to leave AMA. AMA form signed by patient and attached to paperwork. Patient in stable condition with AMA. IV line removed and patient was assisted onto wheelchair and moved to the lobby. Patient called her prior to leaving room and will be picking up patient. ME [facility]ont [id number] 15[facility]56:21 Patient requesting to talk to provider - provider aware. Patient refused tylenol as she said medication does not improve her condition and she does not want to throw it up. Patient also refusing blood draw at this time. [facility]2024-01-24 14:50:00 Patient's name and verified [...] (chronic obstructive pulmonary disease) Diverticulitis Epilepsy Hypertension VT (myocardial infarction) 07/20/2007 Slipped disc Stomach cancer Substance abuse Marijuana daily-for anxiety Allergies noted in chart. Vitals obtained. Assessment performed. IV in place and patent. Placed on continuous spo2/cardiac monitoring, HR 106 Bed low and locked, secured with two rails, call light within reach. Belongings at bedside. Patient aware of plan of care. Steph Dumont RN [place] [id number] 14:17:22 Patient had witnessed seizure like activity. DO Flor at bedside. Patient stopped seizure activity and had no postictal phase. Patient coherent, alert and oriented/answering all questions appropriately. [place] [id number] 13:45:33 Patient here for chest pain that started approximately 1 hour ago. Patient had seizure like activity in the vehicle while attempting to get patient out of the car, patient had no post ictal phase. Patient c/o substernal chest pain and jaw pain. [facility] Jasvir Reaves [place]NR[place] [id number] 13:42:00 [facility] Emergency Department Note Patient Name: Heather Turner Date of : 1970 53 year old female Treatment Room: NV3/[facility] Primary Care Physician: PATIENT DOES NOT HAVE A PCP Patient Escorted by: Family [5] Mode of Arrival: Personal means [1] EMS Treatment Prior to ED Arrival: CUSTOMER INSIGHT ANALYST treatment: None Travel and Exposure Screening: Symptoms [...] (chronic obstructive pulmonary disease) Diverticulitis Epilepsy Hypertension VT (myocardial infarction) 07/20/2007 Slipped disc Stomach cancer [...] 08/14/2015 Surgeon: Luis Jones Jr., DPM; Location: [facility] TONSILLECTOMY Review of Systems: Review of [...] 0.01 - 0.07 10*3/uL COMP. METABOLIC PANEL (24900) - Abnormal NA 140 135 - 145 [...] Procedures Cbc with Diff Comp. Metabolic Panel (89379) Urinalysis Lactic Acid Whole Blood Troponin I Orders Placed This Encounter Medications lacosamide (VIMPAT) 100 mg in NaCl 0.9% (NS) 50 mL piggyback acetaminophen (TYLENOL) tablet 1,000 mg First Provider Eval: ED Events Date/Time Event User Comments 08/12/23 1345 Medical Screening Begins CRISTELA BRYANIP -- 08/12/23 1345 First Provider Evaluation MJ [...] for follow-up Yehuda Arcos MD Specialty: PN-NEUROLOGY [facility] AND [address] [id number] [facility]-Emergency Department Specialty: Emergency Medicine [address] [place] [id number] Instructions: If symptoms worsen as documented in the discharge Electronically signed by: Mj Bryan DO 08/12/23 1605 Mj Bryan DO 08/12/23 1605 [facility]
[2024-10-04 05:43] LABS: Absolute Basophils 0.1 K/uL (0-0.5); Absolute Eosinophils 0.1 K/uL (0-0.5); Absolute Lymphocytes (CBC) 2.1 K/uL (0.7-4.9); Absolute Monocytes 0.6 K/uL (0.1-1.3); Basophils % 1.3 % (0-1.3); Eosinophils % 1.3 % (0-4.4); Hematocrit 39.4 % (36.0-45.0); Hemoglobin 13.1 g/dL (12.0-15.0); MCH 28.6 pg (27.0-35.0); MCHC 33.4 g/dL (32.0-36.0); MCV 85.6 fL (80-100); Monocytes % 7.7 % (3.3-12.3); Neutrophils % 62.7 % (41.7-73.7); Nucleated Red Blood Cells % 0.1 % (0-0); Platelets 537 thou/uL (152-406); Red Cell Distribution Width 18.1 % (12.1-15.2)
[2024-10-04 05:54] LABS: PTT, Activated Partial Thromb 37.4 SECONDS (27.2-37.4); Protime INR 1.06
[2024-10-04 06:05] LABS: ALT/SGPT 20 U/L (13-56); AST/SGOT 15 U/L (15-37); Albumin 3.6 g/dL (3.4-5.0); Albumin/Globulin Ratio 0.8 (1.1-1.8); Alkaline Phosphatase 103 U/L (45-117); Anion Gap 11.4 mEq/L (5.0-15.0); BUN Blood Urea Nitrogen 8 mg/dL (7-18); Bicarbonate 23 mEq/L (21-32); Bilirubin Total 0.2 mg/dL (0.2-1.0); Globulin 4.5 g/dL (2.3-3.5); Glomerular Filtration Rate 105 ml/min (=/>90); Glucose Level 107 mg/dL (74-106); Potassium 3.4 mEq/L (3.5-5.1); Protein, Total 8.1 g/dL (6.4-8.2); Sodium Level 139 mEq/L (136-145)
[2024-10-04 06:06] LABS: Bilirubin Direct < 0.2 mg/dL (0-0.2)
--- NOTE | 2024-10-04 08:04 | ER ---
Nurse's Notes [facility] Name: Heather Coon Age: 54 yrs Sex: Female : 1970 Arrival Date: 10/04/2024 Time: 05:04 Bed 5 Private MD: Diagnosis: Suicidal ideations;Alcohol use, unspecified with intoxication Presentation: 10/04 05:10 Chief complaint: Patient states: c/o feeling depressed and hopeless, has had etoh al5 tonight. Coronavirus screen: At this time, the client does not indicate any symptoms associated with coronavirus-19. Ebola Screen: No symptoms or risks identified at this time. Initial Sepsis Screen: Does the patient meet any 2 criteria? HR > 90 bpm. No. Patient's initial sepsis screen is negative. Does the patient have a suspected source of infection? No. Patient's initial sepsis screen is negative. 05:10 Method Of Arrival: EMS: [facility] al5 05:10 Acuity: ANDER 3 al5 05:10 Note unable to assess SI at this time due to patient mentation and reported etoh al5 intake. will re-assess at a later time. 08:45 Risk Assessment: Do you want to hurt yourself or someone else? Patient reports cm10 desire/thoughts of hurting themselves or someone else. Provider notified. 08:45 Onset of symptoms was October 04, 2024. cm10 Triage Assessment: 05:12 General: Appears in no apparent distress. Behavior is crying. Pain: Complains of pain al5 in back. EENT: No signs and/or symptoms were reported regarding the EENT system. Neuro: Level of Consciousness is awake, alert, obeys commands, Oriented to person, place, time, situation. Cardiovascular: Capillary refill < 3 seconds Patient's skin is warm and dry. Respiratory: Airway is patent Respiratory effort is even, unlabored, Respiratory pattern is regular, symmetrical. GI: No signs and/or symptoms were reported involving the gastrointestinal system. : No signs and/or symptoms were reported regarding the genitourinary system. Derm: Skin is intact, is healthy with good turgor, Skin is pink, warm \\T\\ dry. normal. Musculoskeletal: Reports pain in back states she does not walk. 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 - Infectious Disease History:: Denies. - Social history:: Smoking status: Patient reports the use of cigarette tobacco products, smokes one pack cigarettes per day. Patient uses alcohol, weekly. street drugs, marijuana. Screenin:14 [facility] ED Fall Risk Assessment (Adult) History of falling in the last 3 months, al5 including since admission No falls in past 3 months (0 pts) Confusion or Disorientation No (0 pts) Intoxicated or Sedated Yes (3 pts) Impaired Gait Yes (1 pt) Mobility Assist Device Used No (0 pt) Altered Elimination No (0 pt) Score/Fall Risk Level 3 or more points = High Risk Oriented to surroundings, Maintained a safe environment, Hourly rounding (assess needs \\T\\ fall precautionary measures) done. Abuse screen: Denies threats or abuse. Denies injuries from another. Nutritional screening: No deficits noted. Tuberculosis screening: No symptoms or risk factors identified. Assessment: 05:14 Reassessment: see triage assessment. al5 07:05 Reassessment: received report from Freida CAMPOS that SI paperwork was not completed at iw this time, pending pt ability to answer questions appropriately. plan is to reassess when pt is sober. 08:45 Reassessment: Suicide screen complete, sitter requested. iw 09:40 Reassessment: pt agitated, verbal reassurance given , pt requesting to use her phone. iw 12:00 Reassessment: Pt sleeping. sitter at bedside. cm10 Psych: 08:45 [facility] Suicide Severity Screening: In the past month, have you wished you were iw or wished you could go to sleep and not wake up? Patient responds "yes." Based off the client's responses additional C-SSRS screening is required. "In the past month, have you actually had any thoughts of killing yourself?" Patient responds "yes." Based off the client's response additional [facility] suicide severity screening questions to be further documented on paper forms. "In your lifetime, have you ever done anything, started to do anything, or prepared to do anything to end your life?" Patient responds "yes." Patient reports suicidal intent within 3 past months. Subjective: Patient's mood is sad, Delusions are denied, Hallucinations are denied Having thoughts of suicide. Denies suicidal plan. Objective: Patient is cooperative, Speech is normal, Affect is flat. Interventions: Removed personal items and placed in bag. Patient placed in hospital gown. Safety Checks: Personal items have been removed. Door is open. Patient uses marijuana. Commitment: Patient will be a voluntary commitment. Vital Signs: 05:10 BP 179 / 99; Pulse 127; Resp 18; Temp 98.8; Pulse Ox 99% on R/A; Weight 77.11 kg; al5 Height 5 ft. 2 in. ; 05:45 BP 152 / 90; Pulse 113; Resp 18; Pulse Ox 99% ; al5 06:00 BP 141 / 86; Pulse 108; Resp 17; Pulse Ox 99% ; al5 06:30 BP 153 / 88; Pulse 108; Resp 18; Pulse Ox 100% ; al5 06:49 BP 116 / 91; Pulse 103; ec2 08:53 BP 143 / 82; Pulse 107; Resp 18; Pulse Ox 95% on R/A; ld1 13:38 BP 152 / 72; Pulse 92; Resp 20; Pulse Ox 98% on R/A; cm10 05:10 Body Mass Index 31.09 (77.11 kg, 157.48 cm) al5 ED Course: 05:09 Patient arrived in ED. ec2 05:09 Andrea Pizano MD is Attending Physician. ec2 05:10 Freida Paris RN is Primary Nurse. al5 05:11 Triage completed. al5 05:14 Arm band placed on right wrist. Patient placed in the treatment room, in view of staff al5 members, on pulse oximetry. 05:14 Patient has correct armband on for positive identification. Bed in low position. Call al5 light in reach. Side rails up X2. Provided Education on: plan of care. 05:15 No provider procedures requiring assistance completed. al5 05:31 Inserted saline lock: 20 gauge in left antecubital area, using aseptic technique. Blood vc1 collected. Flushed with 10 mL NS. 05:52 Initial lab(s) drawn, by me, sent to lab. EKG done, by ED staff, reviewed by Andrea Pizano MD. 07:43 Attending Physician role handed off by Andrea Pizano MD ec2 07:43 Norbert Fisher DO is Attending Physician. ec2 11:25 faxed chart to [facility]. bd 11:30 Report given to JEREMIE AT [facility]. cm10 12:49 faxed chart to [facility]. bd 12:56 Report given to EUN AT [facility] WHO STATES THEY WILL ACCEPT THE PATIENT. cm10 13:38 IV discontinued, intact, bleeding controlled, No redness/swelling at site. Pressure cm10 dressing applied. Administered Medications: 05:39 Drug: diphenhydrAMINE IVP 50 mg IVP once Route: IVP; Site: left antecubital; vc1 10:00 Follow up: Response: No adverse reaction cm10 05:39 Drug: NS 0.9% IV 1000 ml IV at 1000 ml once; to be given as a bolus over 60 minutes vc1 Route: IV; Rate: 1000 ml; Site: left antecubital; 10:00 Follow up: Response: No adverse reaction; IV Status: Completed infusion; IV Intake: cm10 1000ml 09:18 Drug: LORazepam PO 1 mg PO once Route: PO; iw 10:00 Follow up: Response: No adverse reaction cm10 Medication: 05:14 VIS not applicable for this client. al5 Intake: 10:00 IV: 1000ml; Total: 1000ml. cm10 Outcome: 08:02 ER care complete, transfer ordered by . ms3 13:38 Transferred by ground [facility] [place]. to other acute care facility: [facility]. cm10 Transfer form completed. 13:38 Condition: stable 13:38 Instructed on the need for transfer, 13:40 Patient left the ED. cm10 Signatures: Catherine Dewey Irene, RN RN iw Norbert Fisher DO DO ms3 Randee Fisher RN RN ld1 Deepali Curry RN RN vc1 Maile Orellana RN RN cm10 Andrea Pizano MD MD ec2 Freida Paris RN RN al5 Corrections: (The following items were deleted from the chart) 05:12 05:11 Social history: Smoking status: Patient reports the use of cigarette tobacco al5 products, smokes one pack cigarettes per day. Patient uses alcohol, street drugs, marijuana, al5
--- NOTE | 2024-10-04 08:04 | EDPHYS ---
Physician Documentation [facility] Name: Heather Coon Age: 54 yrs Sex: Female : 1970 Arrival Date: 10/04/2024 Time: 05:04 Bed 5 Private MD: ED Physician Norbert Fisher HPI: 10/04 05:41 This 54 yrs old Female presents to ER via EMS with complaints of Depression, ec2 Anxiety. 05:41 Patient with multiple alcoholic beverages arrives today for hopelessness. Patient feels ec2 hopeless and wanted to be evaluated. Patient had made some suicidal statements and is subsequently brought in on an emergency mcc order with PD.. 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 - Infectious Disease History:: Denies. - Social history:: Smoking status: Patient reports the use of cigarette tobacco products, smokes one pack cigarettes per day. Patient uses alcohol, weekly. street drugs, marijuana. ROS: 05:41 Constitutional: as per hpi ec2 Exam: 05:41 Constitutional: GEN: NAD Head: atraumatic Eyes: EOMI Ears: External ears are ec2 normal. CV: Tachycardia LUNGS: no respiratory distress ABD: non-distended SKIN: no evidence of rashes MSK: no evidence of trauma. Psych: Cooperative individual who expresses hopelessness and endorses suicidality. Vital Signs: 05:10 BP 179 / 99; Pulse 127; Resp 18; Temp 98.8; Pulse Ox 99% on R/A; Weight 77.11 kg; al5 Height 5 ft. 2 in. ; 05:45 BP 152 / 90; Pulse 113; Resp 18; Pulse Ox 99% ; al5 06:00 BP 141 / 86; Pulse 108; Resp 17; Pulse Ox 99% ; al5 06:30 BP 153 / 88; Pulse 108; Resp 18; Pulse Ox 100% ; al5 06:49 BP 116 / 91; Pulse 103; ec2 08:53 BP 143 / 82; Pulse 107; Resp 18; Pulse Ox 95% on R/A; ld1 13:38 BP 152 / 72; Pulse 92; Resp 20; Pulse Ox 98% on R/A; cm10 05:10 Body Mass Index 31.09 (77.11 kg, 157.48 cm) al5 MDM: 05:13 Medical Screening Exam initiated ec2 05:42 Data reviewed: vital signs, nurses notes. ED course: Patient with suicidal statements ec2 arrives today with alcohol intoxication brought in by PD with an ANDREW. Will obtain psychiatric evaluation.. 05:52 ED course: EKG independently reviewed and interpreted by me, shows sinus rhythm, rate ec2 of 115, no acute ST segment elevations, nonactionable intervals.. 06:38 ED course: Labs are nonactionable. ec2 06:50 ED course: Will reassess after clinically sober.. ec2 07:00 Transition of care: Care assumed from Andrea Pizano MD. ms3 13:38 Differential Diagnosis Drug abuse versus hypertension versus suicidal ideation versus ms3 depression versus situational reaction. Consideration of Admission/Observation Patient transferred. I considered the following discharge prescriptions or medication management in the emergency department Medications were administered in the Emergency Department. See MAR. Counseling: I had a detailed discussion with the patient and/or guardian regarding the historical points, exam findings, and any diagnostic results supporting the discharge/admit diagnosis, lab results, the need to transfer to another facility, [facility] does not immediately have the required specialist. ED course: Patient being transferred to [facility] at this time. Patient remains in stable condition for transfer at this time.. 03 05:11 Order name: Acetaminophen; Complete Time: 06:38 ec2 10/04 05:11 Order name: Basic Metabolic Panel; Complete Time: 06:38 ec2 10/04 05:11 Order name: CBC with Diff; Complete Time: 06:38 ec2 10/04 05:11 Order name: ETOH Level; Complete Time: 06:38 ec2 10/04 05:11 Order name: Hepatic Function; Complete Time: 06:38 ec2 10/04 05:11 Order name: PT-INR; Complete Time: 06:38 ec2 10/04 05:11 Order name: Ptt, Activated; Complete Time: 06:38 ec2 10/04 05:11 Order name: Salicylate; Complete Time: 06:38 ec2 10/04 05:11 Order name: Urine Drug Screen; Complete Time: 10:14 ec2 10/04 11:13 Order name: ETOH Level; Complete Time: 12:37 ms3 10/04 05:11 Order name: EKG - Nurse/Tech; Complete Time: 05:52 ec2 10/04 05:11 Order name: IV Saline Lock; Complete Time: 05:30 ec2 10/04 05:11 Order name: Labs collected and sent; Complete Time: 05:30 ec2 10/04 05:11 Order name: Suicide Screening ([place]); Complete Time: 09:10 ec2 Administered Medications: 05:39 Drug: diphenhydrAMINE IVP 50 mg IVP once Route: IVP; Site: left antecubital; vc1 10:00 Follow up: Response: No adverse reaction cm10 05:39 Drug: NS 0.9% IV 1000 ml IV at 1000 ml once; to be given as a bolus over 60 minutes vc1 Route: IV; Rate: 1000 ml; Site: left antecubital; 10:00 Follow up: Response: No adverse reaction; IV Status: Completed infusion; IV Intake: cm10 1000ml 09:18 Drug: LORazepam PO 1 mg PO once Route: PO; iw 10:00 Follow up: Response: No adverse reaction cm10 Disposition Summary: 10/04/24 08:02 Transfer Ordered Notes: Transfer Location: [facility] Facility ms3 Reason: Higher level of care ms3 Condition: Stable ms3 Problem: new ms3 Symptoms: are unchanged ms3 Accepting Physician: (10/04/24 13:40) cm10 Diagnosis - Suicidal ideations ms3 - Alcohol use, unspecified with intoxication ms3 Forms: - Medication Reconciliation Form ms3 - SBAR form ms3 Signatures: Dispatcher [employer] Lorena Guardado RN RN iw Sims, Marcus, DO DO ms3 Deepali Curry RN RN vc1 Maile Orellana RN RN cm10 Andrea Pizano MD MD ec2 Freida Paris RN RN al5 Corrections: (The following items were deleted from the chart) 05:11 05:11 ACETAMINOPHEN+C.LAB.BRZ ordered. EDMS EDMS 05:11 05:11 BASIC METABOLIC PANEL+C.LAB.BRZ ordered. EDMS EDMS 05:11 05:11 CBC+H.LAB.BRZ ordered. EDMS EDMS 05:11 05:11 ETHANOL+C.LAB.BRZ ordered. EDMS EDMS 05:11 05:11 HEPATIC FUNCTION+C.LAB.BRZ ordered. EDMS EDMS 05:11 05:11 PROTIME (+INR)+COAG.LAB.BRZ ordered. EDMS EDMS 05:11 05:11 PTT, ACTIVATED+COAG.LAB.BRZ ordered. EDMS EDMS 05:11 05:11 SALICYLATE+C.LAB.BRZ ordered. EDMS EDMS 05:11 05:11 URINE DRUG SCREEN+UC.LAB.BRZ ordered. EDMS EDMS 05:12 05:11 Social history: Smoking status: Patient reports the use of cigarette tobacco al5 products, smokes one pack cigarettes per day. Patient uses alcohol, street drugs, marijuana, al5 05:41 05:41 Patient with multiple alcoholic beverages arrives today for hopelessness. Patient ec2 feels hopeless and wanted to be evaluated.. ec2 13:40 08:02 ms3 cm10
[2024-10-04] MEDS ORDERED: LORAZEPAM 1 MG TABLET ONE (09:16)
[2024-10-04 10:01] LABS: Barbiturates NEGATIVE (NEGATIVE); Benzodiazepines NEGATIVE (NEGATIVE); Cocaine POSITIVE (NEGATIVE); METHAMPHETAM NEGATIVE (NEGATIVE); Methadone NEGATIVE (NEGATIVE); Opiates NEGATIVE (NEGATIVE); Phencyclidine NEGATIVE (NEGATIVE); THC Cannibis POSITIVE (NEGATIVE)
[2024-10-04 16:12] VITALS: TEMP 98.8
[2024-10-04 16:19] VITALS: BP 152/72; O2SAT 98
--- NOTE | 2024-10-05 12:33 | EKG ---
Test Date: 2024-10-04 Test Time: 05:49:40 Tire Retreader: KUSHAL MEASUREMENT RESULTS: Intervals: Rate: 115 CA: 150 QRSD: 72 QT: 342 QTc: 473 Amberg: P: 92 CA: 150 QRS: 114 T: 71 INTERPRETIVE STATEMENTS: Suspect arm lead reversal, interpretation assumes no reversal Sinus tachycardia Right axis deviation Low voltage QRS Septal infarct, age undetermined Abnormal ECG Compared to ECG 09/21/2024 16:37:05 Right-axis deviation now present Sinus rhythm no longer present Atrial abnormality no longer present Myocardial infarct finding still present Electronically Signed On 10-05-24 12:26:28 CDT by Christian Crocker
== END 2024-10-04 13:40 ==
LOC: ER 05:04
DX: R45.851 Suicidal ideations (principal); F10.929 Alcohol use, unspecified with intoxication, unspecified; F31.9 Bipolar disorder, unspecified
CPT/HCPCS: 93005; 85025; 80048; 36415; 85610; 80076; 85730; 80307; 80143; 80179; 82077 ×2; J1200; J7030

== ENCOUNTER 2024-10-26 08:18 | Emergency (ER) | payer OTHER ==
--- OUTSIDE RECORDS SUMMARY | 2024-10-26 08:53 | XMS REPORT | Continuity of Care Document ---
Author Name Unknown Address [address] [facility] [place] [address] [facility] Address [address] [facility] [place] [address] Care Team Providers Care Garment Sewer Hand Name Role Phone Aneta Silva Primary Care Physician PANKAJ OBREGON Attending Clinician Un available AYDEE GO Attending Clinician Unavailable MARIANELA COLLAZO Attending Clinician Unavailab ADAM Cabrera Attending Clinician Unavailable THOMAS LOZOYA Attending Clinician Nina MRAIAH Quiroga Attending Clinician Unavailable PROVIDER, TIFFANY Attending Clinician Unavaila Segundo Juares Attending Clinician Unavailable Gus Santamaria Attending Clinician Unavailable HO STOKES Attending Clinician Unachase Stokes MD, Ho Morales Attending Clinician + [phone] GURWINDER MCCORMICK Attending Clinician Unavail able Doctor Unassigned, [place] Attending Clinician U nisreenailWENDI Hayes Attending Clinician Unavailable Brooklynn Paige MD Attending Clinician +[phone] Wendi Montaño MD Attending Clinician +[phone] System, Provider Not In Attending Clinician Unav ailable GUSTAVO DELANEY Attending Clinician Unavailable CHRISSY MOHR Attending Clinician Unavailable CHRISSY MOHR Attending Clinician Unavailable Chrissy Mohr DO Attending Clinician +[phone] MD GERRY Attending Clinician Unavailab le Doctor Unassigned, [place] Attending Clinician U navailMORALES Blevins Attending Clinician Unavailab RADHA Vargas Attending Clinician Unavailable RADHA WYATT Attending Clinician Unavailable Veronique Carrillo RN Attending Clinician [phone] DARRICK FRY Attending Clinician Unavailabl itz Doyle HOT WIRE GLASS TUBE CUTTER, Olena Attending Clinician + [phone] Alfonso Lopez Attending Clinician +[phone] Darrick Fry MD Attending Clinician +[phone] Morena CAMPOS, Jodi Carter Attending Clinician Unavail able TAL BENAVIDEZ Attending Clinician Unavailable Mj Bryan DO Attending Clinician [phone] Tal Benavidez MD Attending Clinician +[phone] KHALIFE, WISSAM GAGE Attending Clinician Unav ailable Behzadi MD, Connor Suarez Attending Clinician +- [phone] Kamille ELIZONDO, Mojgan Gage Attending Clinician + Madeline Mckinley RN Attending Clinician Unavailab MADELINE Edwards Attending Clinician Unavailable MADELINE PIERRE Attending Clinician Unavailable Alcon ELIZONDO, Megan Attending Clinician +[phone] Lisandra ELIZONDO, Cr Attending Clinician +[phone] Lorenzo Ventura MD, Ivis Attending Clinician +[phone] Nola ELIZONDO, Ryder Joshi Attending Clinici an AARON LEDESMA Attending Clinician Unavailable Tracy ELIZONDO, Cris Attending Clinician [phone] EFRA BABCOCK Attending Clinician Un available MYLA LIEBERMAN Attending Clinician Unavailable JUANY GREEN Attending Clinician Unavailable SIDDHARTH STANFORD Attending Clinician UnavailMARGOT Dexter Attending Clinician Unavailable SARAI JULES Attending Clinician Unavaila YONATAN Juarez Attending Clinician Unava ilable EDWARD FARRELL Attending Clinician Unavailable Nir ELIZONDO, [place] Olivia Attending Clinician Unavailab monroe Obregon MD, Pankaj Attending Clinician [phone] Edward Fry DO Attending Clinician +[phone] Edward Farrell MD Attending Clinician +[phone] DEMETRIUS TOBAR Attending Clinician Unavailab QUIN Armenta Attending Clinician Unavail able Kael BELTRAN, Quin R Attending Clinician +[phone] MJ BRYAN Attending Clinician Unavailable Provider, Not In System Attending Clinician Unav paulable Jenifer ELIZONDO, Marianela Hamilton Attending Clinician [phone] Aydee Go MD Attending Clinician [phone] Dallas Gomez Attending Clinician +[phone] Adam Garcia MD Attending Clinician [phone] Harry Newsome MD Attending Clinician +[phone] Rocale ELIZONDO, Antwon Attending Clinician Unavailab monroe Bui MD, Yue Attending Clinician +[phone] Tamica ELIZONDO, Connie Carter Attending Clinician +[phone] Jasen ELIZONDO, Mraiah Attending Clinician [phone] Valerio ELIZONDO, Thomas Reddy Attending Clinician + [phone] CONNIE DAVEY Attending Clinician UnavailAlfonso Oh Attending Clinician Unavailable RITCHIE MOTTA Attending Clinician Unavailable Briana ELIZONDO, Ritchie Stoner Attending Clinician +[phone] Rk CAMPOS, Margot Stoner Attending Clinician [phone] PARRISH WHEATLEY Attending Clinician Unavaila yaya Mendoza MD, Halima Hummel Attending Clinician +[phone] Lucho ELIZONDO, Ning Olivia Attending Clinician +[phone] Roxi ELIZONDO, Parrish Reyez Attending Clinici an DAMI LOWRY Attending Clinician Unavailable Essence ELIZONDO, Dami Attending Clinician +[phone] Maria Teresa Nicole LVN Attending Clinician +[phone] CHANTEL BOJORQUEZ Attending Clinician CHANTEL Kelly Attending Clinician Jack Mcfarlane MD, Brandyn Otoole Attending Clinician +[phone] SELINA MARTINES Attending Clinician Unavailable Sapna Vargas DO Attending Clinician +[phone] Tyrel ELIZONDO, Glory Katz Attending Clinician + Selina Martines MD Attending Clinician +[phone] Santos, Chung Pierson Attending Clinician U chelsi Pak MD, Jose Attending Clinician +[phone] JOSE PAK Attending Clinician Unavailable WILLIAMS ALLISON Attending Clinician Unavaila Williams Lakhani Attending Clinician +[phone] Brandy CAMPOS, Miky Attending Clinician Unavailab monroe BRONSONP, Fabrice Attending Clinician [phone] Ebpenelope COMPACT ASSEMBLER, Lydia Attending Clinician [phone] Unknown, Attending Attending Clinician Unavailab le UNKNOWN, ATTENDING Attending Clinician Unavailab monroe MITTALEstefania S Attending Clinician +[phone] Yehuda Arcos MD Attending Clinician +[phone] PANKAJ OBREGON Admitting Clinician Un available MARIANELA COLLAZO Admitting Clinician Unavailab ADAM Cabrera Admitting Clinician Unavailable MARIAH ALDRIDGE Admitting Clinician Unavailable UNDEFINED Admitting Clinician Unavailable Segundo Toledo Admitting Clinician Unavailable CHRISSY MOHR Admitting Clinician Unavailable RADHA WYATT Admitting Clinician Unavailable DARRICK FRY Admitting Clinician UnavailDarrick Geiger MD Admitting Clinician +[phone] TAL BENAVIDEZ Admitting Clinician Unavailable Tal Benavidez MD Admitting Clinician [phone] MOJGAN SUERO Admitting Clinician Unav ailable Mojgan Suero MD Admitting Clinician + CR FRY Admitting Clinician Unavailable CONNIE DAVEY Admitting Clinician Unavailabl Alfonso Ruiz Admitting Clinician Unavailable RITCHIE MOTTA Admitting Clinician Unavailable NING GELLER Admitting Clinician Unavaila ble DAMI LOWRY Admitting Clinician Unavailable Dami Lowry MD Admitting Clinician [phone] BRANDYN MCFARLANE Admitting Clinician Unavailable Brandyn Mcfarlane MD Admitting Clinician +[phone] GLORY ESTEVES Admitting Clinician Unav ailable WILLIAMS ALLISON Admitting Clinician Unavaila ble Payers Payer Name Policy Type Policy Number Effective Date Expirati on Date Source [facility] CYNTHIA VORA [id number] 2023 00:00:00 ISA RICARDO [id number] 2023 00:00:00 [facility] SESAR LAURA COPAY FOCUS 9 [id number] 2024 00:00:00 [place] [employer] GARCIA EXCHANGE Exchange [id number] 2024 00:00:00 MEDICAID PENDING PENDING 2022 00:00:00 Problems Condition Name Condition Details Condition Category Status Onset Date Resolution Date Last Treatment Date Treating Clinician Comments Source Seizure Seizure Disease Active 08-10 00:00: 00 [facility] Epic Subdural hemorrhage Subdural hemorrhage Disease Active 08-10 00:00: 00 [facility] 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 systolic and diastolic congestive heart failure Disease Active 01-09 00:00: 00 [facility] Hypotensio n Hypotensio n Disease Active 01-08 00:00: 00 [facility] LV (left ventricula r) mural thrombus LV (left ventricula r) mural thrombus Disease Active 12-14 00:00: 00 [facility] Pulmonary hypertensi on Pulmonary hypertensi on Disease Active 12-14 00:00: 00 [facility] Shortness of breath Shortness of breath Disease Active 12-13 00:00: 00 [facility] Other chest pain Other chest pain Disease Active 12-01 00:00: 00 [facility] Depression Depression Disease Active 09-29 00:00: 00 Cynthia carter Anxiety Anxiety Disease Active 09-29 00:00: 00 Cynthia carter CAD (coronary artery disease) CAD (coronary artery disease) Disease Active 09-29 00:00: 00 [facility] carter COPD (chronic obstructiv e pulmonary disease) (multi HCC) COPD (chronic obstructiv e pulmonary disease) (multi HCC) Disease Active 09-29 00:00: 00 [facility] carter History of colon polyps History of colon polyps Disease Active 09-29 00:00: 00 [facility] Marijuana use Marijuana use Disease Active 09-29 00:00: 00 [facility] Seizure (multi HCC) Seizure (multi HCC) Disease Active 09-29 00:00: 00 [facility] Tobacco use Tobacco use Disease Active 09-29 00:00: 00 Cynthia Erazoa raul Type 2 diabetes mellitus with hyperglyce ortega, without long-term current use of insulin (multi HCC) Type 2 diabetes mellitus with hyperglyce ortega, without long-term current use of insulin (multi HCC) Disease Active 09-11 00:00: 00 Cynthia carter CHF (congestiv e heart failure) (multi HCC) CHF (congestiv e heart failure) (multi HCC) Disease Active 09-11 00:00: 00 Cynthia Erazoa raul Bipolar disorder (multi HCC) Bipolar disorder (multi HCC) Disease Active 09-11 00:00: 00 Cynthia carter Seizure disorder (multi HCC) Seizure disorder (multi HCC) Disease Active 09-11 00:00: 00 Cynthia Erazoa raul Prediabete s Prediabete s Disease Active 09-11 00:00: 00 Cynthia carter Bilateral leg weakness Bilateral leg weakness Disease Active 2022-07 00:00: 00 [facility] Bilateral leg weakness Bilateral leg weakness Disease Active 2022-07 00:00: 00 [facility] Pneumonia Pneumonia Disease Active 2022-07 00:00: 00 [facility] Cavitary lesion of lung Cavitary lesion of lung Disease Active 2022-07 00:00: 00 [facility] Cervical myelopathy Cervical myelopathy Disease Recurre mte 2022-07 00:00: 00 [facility] Cervical disc disorder with myelopathy , high cervical region Cervical disc disorder with myelopathy , high cervical region Disease Active 2022-07 00:00: 00 [facility] Cord compressio n Cord compressio n Disease Recurre mte 03-30 00:00: 00 [facility] Cauda equina compressio n Cauda equina compressio n Disease Active 9-11 00:00: 00 [facility] Seizure Seizure Disease Recurre nce 1-14 00:00: 00 [facility] Cardiomyop athy Cardiomyop athy Disease Active 1-13 00:00: 00 [facility] NSVT (nonsustai keisha ventricula r tachycardi a) NSVT (nonsustai keisha ventricula r tachycardi a) Disease Active 08-01 00:00: 00 [facility] Elevated brain natriureti c peptide (BNP) level Elevated brain natriureti c peptide (BNP) level Disease Active 07-31 00:00: 00 [facility] Chest pain, unspecifie d type Chest pain, unspecifie d type Disease Active 07-31 00:00: 00 [facility] Elevated brain natriureti c peptide (BNP) level Elevated brain natriureti c peptide (BNP) level Disease Active 07-31 00:00: 00 [facility] Coronary artery disease involving [place] coronary artery of [place] heart without angina pectoris Coronary artery disease involving [place] coronary artery of [place] heart without angina pectoris Disease Active 07-31 00:00: 00 [facility] Snores Snores Disease Active 07-31 00:00: 00 [facility] Cigarette smoker Cigarette smoker Disease Active 07-31 00:00: 00 [facility] Primary hypertensi on Primary hypertensi on Disease Active 07-31 00:00: 00 [facility] Other hyperlipid emia Other hyperlipid emia Disease Active 07-31 00:00: 00 [facility] Coronary artery disease involving [place] coronary artery of [place] heart without angina pectoris Coronary artery disease involving [place] coronary artery of [place] heart without angina pectoris Disease Active 07-31 00:00: 00 [facility] Chronic bilateral low back pain with bilateral sciatica Chronic bilateral low back pain with bilateral sciatica Disease Active 2021-07 0-17 00:00: 00 [facility] 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 Disease Active 04-15 00:00: 00 [facility] Neuroforam inal stenosis of cervical spine Neuroforam inal stenosis of cervical spine Disease Active 04-15 00:00: 00 [facility] Stroke-lik e symptoms Stroke-lik e symptoms Disease Active 04-13 00:00: 00 [facility] Bipolar disorder, in partial remission, most recent episode manic Bipolar disorder, in partial remission, most recent episode manic Disease Active 09-27 00:00: 00 [facility] Neuroforam inal stenosis of lumbar spine Neuroforam inal stenosis of lumbar spine Disease Active 09-27 00:00: 00 [facility] Bilateral acute otitis media, recurrence not specified, unspecifie d otitis media type Bilateral acute otitis media, recurrence not specified, unspecifie d otitis media type Disease Active 09-27 00:00: 00 [facility] Lumbar spinal stenosis Lumbar spinal stenosis Disease Active 09-27 00:00: 00 [facility] Right-side d low back pain with sciatica, sciatica laterality unspecifie d Right-side d low back pain with sciatica, sciatica laterality unspecifie d Disease Active 09-27 00:00: 00 [facility] Generalize d anxiety disorder Generalize d anxiety disorder Disease Active 09-27 00:00: 00 [facility] Agoraphobi a Agoraphobi a Disease Active 09-27 00:00: 00 [facility] Bipolar disorder, in partial remission, most recent episode manic Bipolar disorder, in partial remission, most recent episode manic Disease Active 09-27 00:00: 00 [facility] Obsessive compulsive disorder Obsessive compulsive disorder Disease Active 09-27 00:00: 00 [facility] Breast mass, left Breast mass, left Disease Active 09-17 00:00: 00 [facility] Anxiety Anxiety Disease Active 09-17 00:00: 00 [facility] Lower back pain Lower back pain Disease Active 09-17 00:00: 00 [facility] High blood pressure High blood pressure Disease Active 09-17 00:00: 00 [facility] COPD (chronic obstructiv e pulmonary disease) COPD (chronic obstructiv e pulmonary disease) Disease Active 09-17 00:00: 00 [facility] Obesity Obesity Disease Active 09-17 00:00: 00 [facility] Breast pain Breast pain Disease Resolve d 09-17 00:00: 00 2015-09-18 00:00:00 2015-09-18 13:19:09 [facility] Allergies, Adverse Reactions, Alerts Allergy Name Allergy Type Status Severity Reaction(s) Onset Date Inactive Date Treating Clinician Comments Source levetira cetam DA Active SV "MAKES ME FEEL FUNNY" 4- 00:00: 00 [facility] levetira cetam DA Active SV UNCONSCIOUS 3- 00:00: 00 [facility] are [facility] st Levetira cetam Propensi ty to adverse reaction s Active 1-22 00:00: 00 [facility] Fluoxeti ne Propensi ty to adverse reaction s Active - 00:00: 00 [facility] Green Tea Drug Allergy Active Other (See Comments) - 00:00: 00 Seizure like activity [facility] Levetira cetam Drug Allergy Active Nausea And Vomiting - 00:00: 00 Intensifi es seizure [facility] FLUOXETI NE Allergy Active - 00:00: 00 [facility] GREEN TEA Allergy Active High Other - 00:00: 00 [facility] LEVETIRA CETAM Allergy Active High N\\T\\V - 00:00: 00 [facility] Green Tea Propensi ty to adverse reaction s Active - 00:00: 00 Seizure like activity [facility] Levetira cetam Propensi ty to adverse reaction s Active Nausea And Vomiting 03-29 00:00: 00 Intensifi es seizure [facility] LEVETIRA CETAM DRUG INGREDI Active Other-Cmnt 11-17 00:00: 00 [facility] Levetira cetam Propensi ty to adverse reaction s Active Other - See comments 11-17 00:00: 00 Makes seizures worse [facility] Levetira cetam Propensi ty to adverse reaction s Active Other 11-17 00:00: 00 Intensifi es seizure Makes seizures worse Makes seizures worse Intensifi es seizure Cynthia Bedoyaold - Externa l FLUOXETI NE Allergy Active Med Rash 08-02 00:00: 00 [facility] Fluoxeti ne Propensi ty to adverse reaction s Active Rash 08-02 00:00: 00 [facility] Green Tea Propensi ty to adverse reaction s Active 08-02 00:00: 00 [facility] GREEN TEA Allergy Active 08-02 00:00: 00 [facility] Fluoxeti ne Propensi ty to adverse reaction s Active Unknown - See comments 03-25 00:00: 00 [facility] FLUOXETI NE DRUG INGREDI Active Unknown-Cmnt 03-25 00:00: 00 [facility] DICLOFEN AC DRUG INGREDI Active HYPERTENSION 11-20 00:00: 00 [facility] Diclofen ac Propensi ty to adverse reaction s Active Anxiety 11-20 00:00: 00 Cynthia Bedoyaold - Externa l GREEN TEA DRUG INGREDI Active Med Other-Cmnt 08-10 00:00: 00 [facility] Green Tea Propensi ty to adverse reaction s to drug Active Other - See comments 08-10 00:00: 00 Seizures [facility] Green Tea Propensi ty to adverse reaction s Active Anxiety 08-10 00:00: 00 Seizure like activity Seizures Seizures Seizure like activity Cynthia Garcia - Externa l FLUOXETI NE HCL DRUG INGREDI Active Hives 03-19 00:00: 00 [facility] Fluoxeti ne Hcl Propensi ty to adverse reaction s Active Hives 03-19 00:00: 00 [facility] Family History Family Member Diagnosis Comments Start Date Stop Date Sourc e Natural mother Alcohol abuse C [facility] Natural mother Cancer [facility] Natural mother Diabetes [facility] Natural mother Heart disease C [facility] Natural mother Hyperlipidemia [facility] Natural mother Kidney disease [facility] Natural mother Stroke [facility] Natural mother Alcohol abuse C [facility] Natural mother Stroke [facility] Paternal uncle Diabetes [facility] Social History Social Habit Start Date Stop Date Quantity Comments Source Gender identity 2024-10-08 15:13:59 Identifies as female gender (finding) [facility] History of tobacco use Cigarette Smoker Cynthia boyd - External History SDOH Alcohol Frequency [facility] History SDOH Alcohol Std Drinks [facility] History SDOH Alcohol Binge [facility] History SDOH Housing Homeless Last Year [facility] ASSERTION Not [facility] Sexual orientation C [facility] History SDOH Social Connections [facility] History SDOH Social Connections [employer] [facility] History SDOH Social Connections [facility] History SDOH Social Connections [facility] Tobacco use and exposure 2023-09-30 00:00:00 [...] of Social function 2023-08-03 00:00:00 2023-08-03 00:00:00 [facility] Alcoholic beverage intake 2023-06-02 00:00:00 2023-06-02 00:00:00 Current drinker of alcohol (finding) [facility] Exposure to SARS-CoV-2 (event) 2023-05-18 00:00:00 2023-05-28 07:28:00 Not sure [facility] History SDOH Housing Unable to Pay - In the last 12 months, was there a time when you were not able to pay the mortgage or rent on time? 2023-05-26 00:00:00 2023-05-26 00:00:00 Yes [facility] Cigarette pack-years 2023-05-26 00:00:00 2023-05-26 00:00:00 [facility] Cigarettes smoked current (pack per day) - Reported 2023-05-26 00:00:00 2023-05-26 00:00:00 [facility] History SDOH Housing Places Lived 2023-03-30 00:00:00 2023-03-30 00:00:00 1 [facility] Alcohol Comment 2023-03-29 00:00:00 2023-03-29 00:00:00 2x a week [facility] History SDOH Social Connections Phone 2022-08-01 00:00:00 2022-08-01 00:00:00 [facility] SDOH Social Connections Living 2022-08-01 00:00:00 2022-08-01 00:00:00 [facility] History SDOH Physical Activity DPW 2022-08-01 00:00:00 2022-08-01 00:00:00 0 [facility] History SDOH Physical Activity MPS 2022-08-01 00:00:00 2022-08-01 00:00:00 0 [facility] History SDOH Financial 2022-08-01 00:00:00 2022-08-01 00:00:00 3 [facility] History SDOH Food Worry 2022-08-01 00:00:00 2022-08-01 00:00:00 1 [facility] History SDOH Food Scarcity 2022-08-01 00:00:00 2022-08-01 00:00:00 1 [facility] History SDOH Transport Med 2022-08-01 00:00:00 2022-08-01 00:00:00 2 [facility] History SDOH Transport Non-Med 2022-08-01 00:00:00 2022-08-01 00:00:00 [facility] Sex 2012-08-07 21:33:40 2012-08-07 21:33:40 Female (finding) [facility] Sex assigned at 1970 00:00:00 1970 00:00:00 [facility] Smoking Status Start Date Stop Date Source [facility] Smokes tobacco daily 2023-09-30 00:00:00 Cynthia thuoliver - External Never smoked tobacco Cynthia thuoliver - External Ex-smoker 2023-05-26 00:00:00 2023-05-26 00:00:00 [facility] Medications Ordered Medication Name Filled Medication Name Start Date Stop Date Current Medication? Ordering Clinician Indication Dosage Frequency Signature (SIG) Comments Components Source ondansetron (Zofran) injection 4 mg ondansetron (Zofran) injection 4 mg 10-08 15:10: 00 10-08 15:27 :00 No 4mg 4 mg, Intravenou s, Once, On 10/08/24 at 1510, For 1 dose Blade Hare ondansetron (Zofran) 4 MG/2ML injection - Pyxis Override Pull ondansetron (Zofran) 4 MG/2ML injection - Pyxis Override Pull 10-08 15:08: 42 10-08 15:27 :00 No Starting on 10/08/24 at 1508, For 1 dose, Created by cabinet override Blade Hare methocarbam ol (Robaxin) tablet 500 mg methocarbam ol (Robaxin) tablet 500 mg 5-0 10-08 15:00: 00 Yes 500mg 500 mg, Oral, Once, On 10/08/24 at 1500, For 1 dose Blade Hare gabapentin (Neurontin) capsule 300 mg gabapentin (Neurontin) [...] dose, Max acetaminop hen = 4000mg/day (4gm/day) Jackybrenda raul Bolaños Pay[facility] HYDROcodone -acetaminop hen ([place]) 5-325 MG per tablet 1 tablet HYDROcodone -acetaminop hen ([place]) 5-325 MG per tablet 1 tablet 08-10 10:10: 00 08-10 10:42 :00 No 1{tbl} 1 tablet, Oral, Once, On Thu08/10/24 at 1010, For 1 dose Jackybrenda raul Bolaños Pay[facility] lidocaine 4 % patch 1 patch lidocaine [...] before applicatio n of new patch. Blade Bolaños Payam thiamine (Vitamin B1) injection 500 mg thiamine [...] max of 60 mg/min in adults. Blade Hare LORazepam (Ativan) injection 1 mg LORazepam (Ativan) [...] capsule 08-10 00:00: 00 09-09 23:59 :00 Yes 300mg [id number] 3D Take 1 capsule by mouth in the morning and 1 capsule at noon and 1 capsule in the evening. Blade Hare cefpodoxime (Vantin) 200 MG tablet cefpodoxime (Vantin) 200 MG tablet 08-10 00:00: 00 08-20 23:59 :00 No 200mg Q.5D Take 1 tablet by mouth in the morning and 1 tablet in the evening. Do all this for 10 days. Blade Hare methocarbam ol (Robaxin) 750 MG tablet methocarbam ol (Robaxin) 750 MG tablet - 00:00: 00 08-20 23:59 :00 Yes 750mg Q.5D Take 1 tablet by mouth [...] unable to tolerate oral medication s? Yes [facility] valproate (DEPACON) 500 mg in D5W piggyback 04-03 03:30: 00 04-03 04:49 :00 No 500mg 500 mg, IV Piggyback, ONCE NOW, 1 dose, On 04/02/24 at 2245, Administer over 30 Minutes, 100 mL [facility] divalproex (DEPAKOTE) delayed release tablet 250 mg 04-03 03:15: 00 04-03 04:07 :00 No 250mg 250 mg, Oral, ONCE NOW, 1 dose, On 04/02/24 at 2215, MICHAEL [facility] ondansetron (ZOFRAN (PF)) injection 4 mg 04-03 02:30: 00 04-03 04:58 :00 No 4mg 4 mg, Slow IV Push, ONCE, 1 dose, On 04/02/24 at 2130, MICHAEL [facility] morpHINE (4 mg/mL) injection 4 mg 04-03 02:30: 00 04-03 04:58 :00 No 4mg 4 mg, Slow IV Push, ONCE, 1 dose, On 04/02/24 at 2130, STAT [facility] divalproex ER 500 mg 24 hr tablet 04-03 00:00: 00 Yes [id number] 1000mg Take 2 tablets by mouth every 12 (twelve) hours. [facility] KCL 20 mEq tablet 04-03 00:00: 00 04-09 04:59 :00 No [id number] 40meq Take 2 tablets by mouth in the morning for 5 days. [facility] LORazepam (ATIVAN) tablet 1 mg 01-12 04:00: 00 01-12 03:56 :00 No 1mg 1 mg, Oral, ONCE, 1 dose, [facility]01/12/24 [facility] 2300[facility]PF[facility] 8 mg 01-12 04:00: 00 01-12 03:55 :00 No 8mg 8 mg, Slow IV Push, ONCE, 1 dose, On Thu01/12/24 at 2300, [facility] morpHINE (4 mg/mL) injection 6 mg 01-12 04:00: 00 01-12 03:55 :00 No 6mg 6 mg, Slow IV Push, ONCE, 1 dose, On Thu01/12/24 at 2300, STAT [facility] mirtazapine (REMERON) tablet 15 mg 01-10 02:00: 00 Yes 15mg [facility] atorvastati n (LIPITOR) tablet 40 mg 01-10 02:00: 00 Yes 40mg [facility] MULTIVITAMI N ORAL 01-09 15:56: 06 Yes 1{tbl} Take 1 Tab by mouth daily. [facility] omega-3 fatty acids-vitam in E (FISH OIL) 1,000 mg capsule 01-09 15:56: 06 Yes 1g Take 1 g by mouth daily. [facility] loratadine (CLARITIN LIQUI-GEL) 10 mg capsule 01-09 15:56: 06 Yes Take by mouth daily. [facility] metoprolol succinate XL 50 mg 24 hr tablet 01-09 15:56: 06 01-09 00:00 :00 No 50mg Take 1 tablet by mouth in the morning. [facility] KCL (KLOR-CON M20) tablet 40 mEq 01-09 15:45: 00 01-09 17:43 :00 No 40meq 40 mEq, Oral, ONCE, 1 dose, On Thu01/10/24 at 1045, Routine [facility] ondansetron 4 mg tablet 01-09 14:46: 23 01-09 00:00 :00 No 4mg Take 1 tablet by mouth every 8 (eight) hours as needed for Nausea and Vomiting (N/V). [facility] perflutren protein-A microsphr (OPTISON) injection 3 mL 01-09 14:15: 00 01-09 14:15 :00 No [id number] 3mL 3 mL, IV Push, ONCE, 1 dose, On Thu01/10/24 at 0915, Routine [facility] tamsulosin (FLOMAX) capsule 0.4 mg 01-09 14:00: 00 Yes .4mg 0.4 mg, Oral, DAILY, First dose on Thu01/10/24 at 0900, Until Discontinu ed, Routine [facility] metoprolol succinate XL (TOPROL XL) tablet 12.5 mg 01-09 14:00: 00 Yes 12.5mg [facility] DULoxetine (CYMBALTA) capsule 30 mg 01-09 14:00: 00 Yes 30mg 30 mg, Oral, DAILY, First dose on 01/10/24 at 0900, Until Discontinu ed, Routine [facility] digoxin (LANOXIN) tablet 125 mcg 01-09 14:00: 00 Yes 125ug 125 mcg, Oral, DAILY, First dose on 01/10/24 at 0900, Until Discontinu ed [facility] aspirin chewable tablet 81 mg 01-09 14:00: 00 Yes 81mg 81 mg, Oral, DAILY, First dose on 6/23/24 at 0900, Until Discontinu ed, Routine [facility] nicotine (NICODERM) 21 mg/24 hr patch 1 Patch 01-09 13:45: 00 Yes 1{patch } 1 Patch, Topical, Administer over 24 Hours, Q24H, First dose on 01/10/24 at 0845, Until Discontinu ed, Routine [facility] gabapentin (NEURONTIN) capsule 100 mg 01-09 13:00: 00 Yes 100mg 100 mg, Oral, TID, First dose on 01/10/24 at 0800, Until Discontinu ed, Routine [facility] divalproex (DEPAKOTE) delayed release tablet 1,000 mg 01-09 13:00: 00 Yes 1000mg 1,000 mg, Oral, Q12H, First dose on 01/10/24 at 0800, Until Discontinu ed, Routine [facility] cyclobenzap rine (FLEXERIL) tablet 5 mg 01-09 13:00: 00 Yes 5mg 5 mg, Oral, TID, First dose on 01/10/24 at 0800, Until Discontinu ed, Routine [facility] apixaban (ELIQUIS) tablet 5 mg 01-09 13:00: 00 02-27 12:59 :00 No [id number] 5mg 5 mg, Oral, BID, 98 doses, First dose on 01/10/24 at 0800, Last dose on 02/27/24 at 2000, Routine, Indication s: DVT/PE [facility] FENTanyl PF (SUBLIMAZE (PF)) injection 25 mcg 01-09 03:08: 20 01-10 03:07 :20 No 25ug 25 mcg, Slow IV Push, Q4HPRN, Starting on 01/09/24 at 2208, Until 01/10/24 at 2207, Routine, Pain (scale 7-10), Pain (scale 4-6) [facility] acetaminoph en (TYLENOL) tablet 650 mg 01-09 03:08: 07 Yes 650mg 650 mg, Oral, Q6HPRN, Starting on 01/09/24 at 2208, Until Discontinu ed, Routine, Pain (scale 1-3) [facility] ondansetron (ZOFRAN (PF)) injection 4 mg 01-09 02:45: 00 01-09 01:53 :00 No 4mg 4 mg, Slow IV Push, ONCE, 1 dose, On 01/09/24 at 2145, MICHAEL [facility] ipratropium -albuteroL (DUONEB) 0.5 mg-3 mg(2.5 mg base)/3 mL nebulizer solution 3 mL 01-09 02:45: 00 01-09 02:01 :00 No 3mL 3 mL, Inhalation , ONCE, 1 dose, On 01/09/24 at 2145, Routine [facility] cefTRIAXone (ROCEPHIN) 1,000 mg in NaCl 0.9% (NS) 100 mL MINI-BAG 01-09 02:30: 00 01-09 03:10 :00 No 1000mg 1,000 mg, IV Piggyback, ONCE, 1 dose, On 01/09/24 at 2130, Administer over 30 Minutes, 100 mL, Reason for Anti-Infec tive: Documented Infection, Documented Infection Site: Respirator y, Duration of Therapy: Once (ED) [facility] famotidine (PEPCID (PF)) injection 20 mg 01-09 01:45: 00 01-09 01:53 :00 No 20mg 20 mg, Slow IV Push, ONCE, 1 dose, On 01/09/24 at 2045, MICHAEL [facility] iopamidol (ISOVUE 370-500 mL) injection 90 mL 01-09 00:45: 00 01-09 00:45 :00 No [id number] 90mL 90 mL, Intravenou s, ONCE, 1 dose, On 01/09/24 at 1945, Routine [facility] atorvastati n 40 mg tablet 01-09 00:00: 00 Yes [id number] 20mg Take 0.5 tablets by mouth at bedtime. [facility] furosemide 40 mg tablet 01-09 00:00: 00 Yes [id number] 40mg Take 1 tablet by mouth every morning and evening. [facility] ipratropium -albuteroL 0.5 mg-3 mg(2.5 mg base)/3 mL nebulizer solution 01-09 00:00: 00 Yes [id number] 3mL Inhale 3 mL every 6 (six) hours as needed for Wheezing or Shortness of Breath. [facility] predniSONE 20 mg tablet 01-09 00:00: 00 01-15 04:59 :00 No [id number] 40mg Take 2 tablets by mouth in the morning for 5 days. [facility] FENTanyl PF (SUBLIMAZE (PF)) injection 50 mcg 01-08 22:45: 00 01-08 23:10 :00 No 50ug 50 mcg, Slow IV Push, ONCE, 1 dose, On 01/09/24 at 1745, STAT [facility] ondansetron (ZOFRAN (PF)) injection 4 mg 01-08 21:30: 00 01-08 21:47 :00 No 4mg 4 mg, Slow IV Push, ONCE, 1 dose, On 01/09/24 at 1630, MICHAEL [facility] aspirin tablet 325 mg 01-08 21:15: 00 01-08 21:47 :00 No 325mg 325 mg, Oral, ONCE, 1 dose, On 01/09/24 at 1615, STAT [facility] spironolact one 25 mg tablet 12-15 00:00: 00 01-15 04:59 :00 No [id number] 25mg Take 1 tablet by mouth in the morning for 30 days. [facility] furosemide (LASIX) tablet 40 mg 12-14 22:00: 00 Yes 40mg 40 mg, Oral, QAM+PM, First dose (after last modificati on) on Thu12/15/23 at 1700, Until Discontinu ed, Routine [facility] spironolact one (ALDACTONE) tablet 25 mg 12-14 14:00: 00 Yes 25mg 25 mg, Oral, DAILY, First dose on Thu12/15/23 at 0900, Until Discontinu ed, Routine [facility] tamsulosin (FLOMAX) capsule 0.4 mg 12-14 14:00: 00 Yes .4mg 0.4 mg, Oral, DAILY, First dose on Thu12/15/23 at 0900, Until Discontinu ed, Routine [facility] metoprolol succinate XL (TOPROL XL) tablet 12.5 mg 12-14 14:00: 00 Yes 12.5mg 12.5 mg, Oral, DAILY, First dose on Thu12/15/23 at 0900, Until Discontinu ed, Routine [facility] lisinopriL (PRINIVIL,Z ESTRIL) tablet 2.5 mg 12-14 14:00: 00 Yes 2.5mg [facility] DULoxetine (CYMBALTA) capsule 30 mg 12-14 14:00: 00 Yes 30mg 30 mg, Oral, DAILY, First dose on Thu12/15/23 at 0900, Until Discontinu ed, Routine [facility] digoxin (LANOXIN) tablet 125 mcg 12-14 14:00: 00 Yes 125ug 125 mcg, Oral, DAILY, First dose on Thu12/15/23 at 0900, Until Discontinu ed [facility] aspirin chewable tablet 81 mg 12-14 14:00: 00 Yes 81mg 81 mg, Oral, DAILY, First dose on Thu12/15/23 at 0900, Until Discontinu ed, Routine [facility] furosemide (LASIX) injection 40 mg 12-14 14:00: 00 12-14 13:49 :00 No 40mg 40 mg, Slow IV Push, ONCE, 1 dose, On Thu12/15/23 at 0900, Routine [facility] MULTIVITAMI N ORAL 12-14 11:08: 41 Yes 1{tbl} Take 1 Tab by mouth daily. [facility] omega-3 fatty acids-vitam in E (FISH OIL) 1,000 mg capsule 12-14 11:08: 41 Yes 1g Take 1 g by mouth daily. [facility] loratadine (CLARITIN LIQUI-GEL) 10 mg capsule 12-14 11:08: 41 Yes Take by mouth daily. [facility] ondansetron 4 mg tablet 12-14 11:08: 41 Yes 4mg Take 1 tablet by mouth every 8 (eight) hours as needed for Nausea and Vomiting (N/V). [facility] methylPREDN ISolone sod succ (SOLU-MEDRO L (PF)) injection 40 mg 12-14 11:00: 00 Yes 40mg 40 mg, Intravenou s, Q6H, First dose (after last modificati on) on Thu12/15/23 at 0600, Until Discontinu ed, Routine [facility] ipratropium -albuteroL (DUONEB) 0.5 mg-3 mg(2.5 mg base)/3 mL nebulizer solution 3 mL 12-14 08:08: 34 Yes 3mL 3 mL, Inhalation , QIDPRN, Starting on Thu12/15/23 at 0308, Until Discontinu ed, Routine, Wheezing, Shortness of Breath, Bronchospa sm, Chest tightness [facility] ipratropium -albuteroL (DUONEB) 0.5 mg-3 mg(2.5 mg base)/3 mL nebulizer solution 3 mL 12-14 03:19: 38 Yes 3mL 3 mL, Inhalation , QIDPRN, Starting on Thu12/14/23 at 2219, Until Discontinu ed, Routine, Wheezing, Shortness of Breath, Bronchospa sm, Chest tightness [facility] Sliding Scale Insulin - Lispro (HumaLOG) 12-14 02:00: 00 Yes [facility] mirtazapine (REMERON) tablet 15 mg 12-14 02:00: 00 Yes 15mg 15 mg, Oral, QHS, First dose on Thu12/14/23 at 2100, Until Discontinu ed, Routine [facility] atorvastati n (LIPITOR) tablet 40 mg [...] at 2000, Until Discontinu ed, [facility] (FLEX[facility]IL[facility] tablet 5 mg 12-14 01:00: 00 Yes 5mg 5 mg, Oral, TID, First dose on Thu12/14/23 at 1999, Until Discontinu ed, [facility] apixaban (ELIQUIS) tablet 5 mg 12-14 01:00: 00 02-28 00:59 :00 No [id number] 5mg 5 mg, Oral, BID, 152 doses, First dose on Thu12/14/23 at 1999, Last dose on Thu02/28/24 at 0800, Routine, Indication s: DVT/PE [facility] ondansetron (ZOFRAN (PF)) injection 4 mg 12-14 00:15: 00 12-13 23:26 :00 No 4mg 4 mg, Slow IV Push, ONCE, 1 dose, On Thu12/14/23 at 1915, Routine [facility] morpHINE (4 mg/mL) injection 4 mg 12-14 00:15: 00 12-13 23:27 :00 No 4mg 4 mg, Slow IV Push, ONCE, 1 dose, On Thu12/14/23 at 1915, STAT [facility] metFORMIN 500 mg tablet 12-14 00:00: 00 01-14 04:59 :00 No [id number] 500mg Take 1 tablet by mouth in the morning for 30 days. [facility] empaglifloz in (JARDIANCE) 10 mg tablet 12-14 00:00: 00 01-14 04:59 :00 No [id number] 10mg Take 1 tablet by mouth in the morning for 30 days. [facility] furosemide 40 mg tablet 12-14 00:00: 00 01-09 00:00 :00 No [id number] 60mg Take 1.5 tablets by mouth every morning and evening for 60 days. [facility] glucagon (GLUCAGEN DIAGNOSTIC KIT) injection 1 mg 12-13 23:57: 51 Yes 1mg [facility] dextrose 50 % in water (D50W) injection 25 mL 12-13 23:57: 51 Yes 25mL [facility] ondansetron (ZOFRAN (PF)) injection 4 mg 12-13 23:57: 45 Yes 4mg [facility] morpHINE (2 mg/mL) injection 2 mg 12-13 23:57: 39 12-14 23:56 :39 No 2mg 2 mg, Slow IV Push, Q4HPRN, Starting on Thu12/14/23 at 1857, Until Thu12/15/23 at 1856, Routine, Pain (scale 7-10) [facility] HYDROcodone -acetaminop hen (NORCO 5) 5-325 mg tablet 1 tablet 12-13 23:57: 36 12-15 23:56 :36 No 1{tbl} 1 tablet, Oral, Q6HPRN, Starting on Thu12/14/23 at 1857, Until Thu12/16/23 at 1856, Routine, Pain (scale 4-6) [facility] acetaminoph en (TYLENOL) tablet 650 mg 12-13 23:57: 28 Yes 650mg 650 mg, Oral, Q6HPRN, Starting on Thu12/14/23 at 1857, Until Discontinu ed, Routine, Pain (scale 1-3), Temp > [facility] dicyclomine (BENTYL) tablet 20 mg 12-13 23:53: 34 Yes 20mg [facility] methylpredn isolone sod succ (SOLU-MEDRO L) injection 125 mg 12-13 23:00: 00 12-14 08:08 :57 No 125mg 125 mg, Intravenou s, Q6H, First dose on Thu12/14/23 at 1800, Until Discontinu ed, [facility] ipratropium -albuteroL (DUONEB) 0.5 mg-3 mg(2.5 mg base)/3 mL nebulizer solution 3 mL 12-13 21:00: 00 Yes 3mL 3 mL, Inhalation , QID, First dose on Thu12/14/23 at 1600, Until Discontinu ed, Routine [facility] ondansetron (ZOFRAN (PF)) injection 4 mg 12-13 20:45: 00 12-13 19:40 :00 No 4mg 4 mg, Slow IV Push, ONCE, 1 dose, On Thu12/14/23 at 1545, Routine [facility] morpHINE (4 mg/mL) injection 4 mg 12-13 20:45: 00 12-13 19:41 :00 No 4mg 4 mg, Slow IV Push, ONCE, 1 dose, On Thu12/14/23 at 1545, STAT [facility] furosemide (LASIX) tablet 40 mg 12-03 14:00: 00 Yes 40mg 40 mg, Oral, DAILY, First dose (after last modificati on) on Thu12/04/23 at 0900, Until Discontinu ed, [facility] mirtaz[facility] (REMERON) tablet 15 mg 12-03 02:00: 00 Yes 15mg [facility] metoprolol succinate XL 25 mg 24 hr tablet 12-03 00:00: 00 Yes [id number] 12.5mg Take 0.5 tablets by mouth in the morning. [facility] Potassium Bicarb-Citr ic Acid (EFFER-K) effervescen t tablet 40 mEq 12-02 21:06: 00 12-02 23:09 :00 No 40meq 40 mEq, Oral, ONCE, 1 dose, On Thu12/03/23 at 1615, Routine [facility] metoprolol succinate XL (TOPROL XL) tablet 12.5 mg 12-02 16:00: 00 Yes 12.5mg 12.5 mg, Oral, DAILY, First dose on Thu12/03/23 at 1100, Until Discontinu ed, Routine [facility] sennosides (SENOKOT) tablet 8.6 mg 12-02 15:00: 00 Yes 8.6mg 8.6 mg, Oral, DAILY, First dose on Thu12/03/23 at 1000, Until Discontinu ed, Routine [facility] acetaminoph en (TYLENOL) tablet 650 mg [...] at 0900, Until Discontinu ed, Routine [facility] digoxin (LANOXIN) tablet 125 mcg 12-02 14:00: 00 Yes 125ug 125 mcg, Oral, DAILY, First dose on Thu12/03/23 at 0900, Until Discontinu ed [facility] aspirin chewable tablet 81 mg 12-02 14:00: 00 Yes 81mg 81 mg, Oral, DAILY, First dose on Thu12/03/23 at 0900, Until Discontinu ed, Routine [facility] furosemide (LASIX) tablet 40 mg 12-02 14:00: 00 12-02 17:37 :33 No 40mg 40 mg, Oral, QAM+PM, First dose on Thu12/03/23 at 0900, Until Discontinu ed, Routine [facility] lacosamide (VIMPAT) tablet 100 mg 12-02 13:30: 00 Yes 100mg 100 mg, Oral, BID, First dose on Thu12/03/23 at 0830, Until Discontinu ed, Routine [facility] magnesium oxide (MAG-OX 400) tablet 400 mg 12-02 13:26: 00 12-02 14:24 :00 No 400mg 400 mg, Oral, ONCE, 1 dose, On Thu12/03/23 at 0830, Routine [facility] Potassium Bicarb-Citr ic Acid (EFFER-K) effervescen t tablet 40 mEq 12-02 13:19: 00 12-02 14:24 :00 No 40meq 40 mEq, Oral, ONCE, 1 dose, On Thu12/03/23 at 0830, Routine [facility] Sliding Scale Insulin - Lispro (HumaLOG) 12-02 13:00: 00 Yes Subcutaneo us, TID MEALS+HS, First dose on Thu12/03/23 at 0800, Until Discontinu ed, Routine [facility] gabapentin (NEURONTIN) capsule 100 mg 12-02 13:00: 00 Yes 100mg 100 mg, Oral, TID, First dose on Thu12/03/23 at 0800, Until Discontinu ed, Routine [facility] divalproex ER (DEPAKOTE ER) 24 hr tablet 1,000 mg 12-02 13:00: 00 Yes 1000mg 1,000 mg, Oral, Q12H, First dose on Thu12/03/23 at 0800, Until Discontinu ed, Routine [facility] cyclobenzap rine (FLEXERIL) tablet 5 mg 12-02 13:00: 00 Yes 5mg 5 mg, Oral, TID, First dose on Thu12/03/23 at 0800, Until Discontinu ed, Routine [facility] KCL (KLOR-CON M20) tablet 40 mEq 12-02 12:15: 00 12-02 14:24 :00 No 40meq 40 mEq, Oral, ONCE, 1 dose, On Thu12/03/23 at 0715, Routine [facility] KCL (KLOR-CON M20) tablet 20 mEq 12-02 04:00: 00 12-02 04:07 :00 No 20meq 20 mEq, Oral, ONCE, 1 dose, On Thu12/02/23 at 2300, Routine [facility] furosemide (LASIX) injection 40 mg 12-02 03:15: 00 12-02 02:36 :00 No 40mg 40 mg, Slow IV Push, ONCE, 1 dose, On Thu12/02/23 at 2215, Routine [facility] glucagon (GLUCAGEN DIAGNOSTIC KIT) injection 1 mg 12-02 02:54: 39 Yes 1mg 1 mg, Intramuscu lar, PRN, Starting on Thu12/02/23 at 2154, Until Discontinu ed, MICHAEL, Blood Glucose < or = 70 mg/dL and patient is NPO, unable to swallow or has mental changes. [facility] dextrose 50 % in water (D50W) injection 25 mL 12-02 02:54: 38 Yes 25mL 25 mL, Slow IV Push, PRN, Starting on Thu12/02/23 at 2154, Until Discontinu ed, MICHAEL, Blood Glucose < or = 70 mg/dL and patient is NPO, unable to swallow or has mental status changes. [facility] atorvastati n (LIPITOR) tablet 40 mg 12-02 02:00: 00 Yes 40mg 40 mg, Oral, QHS, First dose on Thu12/02/23 at 2100, Until Discontinu ed, Routine [facility] apixaban (ELIQUIS) tablet 5 mg 12-02 01:45: 00 02-28 00:59 :00 No [id number] 5mg 5 mg, Oral, BID, 176 doses, First dose on Thu12/02/23 at 2045, Last dose on Thu02/28/24 at 0800, Routine, Indication s: DVT/PE [facility] albuterol (PROVENTIL) 2.5 mg /3 mL (0.083 %) nebulizer solution 2.5 mg 12-02 01:40: 57 Yes 2.5mg [facility] ondansetron (ZOFRAN (PF)) injection 4 mg 12-02 01:02: 39 Yes 4mg 4 mg, Slow IV Push, Q6HPRN, Nausea and Vomiting (N/V), Starting on Thu12/02/23 at 2001, Doses of ondansetro n 16 mg and above need to be administer ed via IV piggyback. For Dose >=24mg ECG monitoring is advisable. [facility] lisinopriL 2.5 mg tablet 12-02 00:00: 00 Yes [id number] 2.5mg Take 1 tablet by mouth in the morning. [facility] acetaminoph en (OFIRMEV) IV piggyback 1,000 mg 12-01 22:15: 00 12-01 21:51 :00 No 1000mg 1,000 mg, IV Piggyback, at 400 mL/hr Administer over 15 Minutes, ONCE, 1 dose, On Thu12/02/23 at 1715, Routine, Is the patient strict NPO and unable to tolerate oral medication s? Yes [facility] iopamidol (ISOVUE 370-500 mL) injection 85 mL 12-01 19:15: 00 12-01 19:33 :00 No [id number] 85mL 85 mL, Intravenou s, ONCE, 1 dose, On Thu12/02/23 at 1415, Routine [facility] FENTanyl PF (SUBLIMAZE (PF)) injection 25 mcg 12-01 18:30: 00 12-01 19:38 :00 No 25ug 25 mcg, Slow IV Push, ONCE, 1 dose, On Thu12/02/23 at 1330, STAT [facility] NaCl 0.9% (NS) bolus infusion 1,000 mL 12-01 18:15: 00 12-01 21:00 :00 No 1000mL at 999 mL/hr, 1,000 mL, IV Infusion, ONCE, 1 dose, On Thu12/02/23 at 1315, STAT [facility] DULoxetine 30 mg capsule 11-28 00:00: 00 Yes [id number] 30mg Take 1 capsule by mouth in the morning. [facility] digoxin 125 mcg tablet 11-28 00:00: 00 Yes [id number] .125mg Take 1 tablet by mouth in the morning. [facility] tamsulosin 0.4 mg 24 hr capsule 11-28 00:00: 00 02-27 04:59 :00 No [id number] .4mg Take 1 capsule by mouth in the morning for 90 days. [facility] metoprolol succinate XL 50 mg 24 hr tablet 11-28 00:00: 00 12-02 00:00 :00 No [id number] 50mg Take 1 tablet by mouth in the morning. [facility] lisinopriL 5 mg tablet 11-28 00:00: 00 12-02 00:00 :00 No [id number] 5mg Take 1 tablet by mouth in the morning. [facility] spironolact one 25 mg tablet 11-28 00:00: 00 12-02 00:00 :00 No [id number] 50mg Take 2 tablets by mouth in the morning. [facility] metoprolol succinate XL (TOPROL XL) tablet 50 mg 11-27 14:00: 00 Yes 50mg 50 mg, Oral, DAILY, First dose (after last modificati on) on Thu11/28/23 at 0900, Until Discontinu ed, Routine [facility] KCL (KLOR-CON M20) tablet 40 mEq 11-27 12:30: 00 11-27 13:39 :00 No 40meq 40 mEq, Oral, ONCE, 1 dose, On Thu11/28/23 at 0730, Routine [facility] potassium chloride in water (KCL) 20 mEq/100 mL RTU IVPB 20 mEq 11-27 11:00: 00 11-27 13:40 :00 No 20meq 20 mEq, IV Piggyback, ONCE, 1 dose, On Thu11/28/23 at 0600, 100 mL [facility] clonazePAM (KLONOPIN) tablet 0.5 mg 11-27 02:45: 00 Yes .5mg 0.5 mg, Oral, QHS, First dose on Thu11/27/23 at 2145, Until Discontinu ed, Routine [facility] lacosamide (VIMPAT) tablet 100 mg 11-27 01:00: 00 Yes 100mg 100 mg, Oral, BID, First dose (after last modificati on) on Thu11/27/23 at 2000, Until Discontinu ed, Routine [facility] gabapentin 100 mg capsule 11-27 00:00: 00 Yes [id number] 100mg Take 1 capsule by mouth in the morning and 1 capsule at noon and 1 capsule in the evening. [facility] divalproex ER 500 mg 24 hr tablet 11-27 00:00: 00 04-03 00:00 :00 No [id number] 1000mg Take 2 tablets by mouth every 12 (twelve) hours. [facility] apixaban 5 mg tablet 11-27 00:00: 00 03-01 04:59 :00 No [id number] Take 2 tablets by mouth 2 (two) times daily for 3 days, THEN 1 tablet 2 (two) times daily for 90 days. Indication s: history of deep vein thrombosis [facility] furosemide 40 mg tablet 11-27 00:00: 00 12-14 00:00 :00 No [id number] 40mg Take 1 tablet by mouth every morning and evening. [facility] lacosamide (VIMPAT) 200 mg in NaCl 0.9% (NS) 50 mL piggyback 11-26 18:45: 00 11-26 23:04 :00 No 200mg 200 mg, IV Piggyback, ONCE, 1 dose, On Thu11/27/23 at 1345, Administer over 30 Minutes, 50 mL [facility] furosemide (LASIX) tablet 40 mg 11-26 14:00: 00 Yes 40mg 40 mg, Oral, QAM+PM, First dose on Thu11/27/23 at 0900, Until Discontinu ed, Routine [facility] divalproex ER (DEPAKOTE ER) 24 hr tablet 1,000 mg 11-26 13:00: 00 Yes 1000mg 1,000 mg, Oral, Q12H, First dose (after last modificati on) on Thu11/27/23 at 0800, Until Discontinu ed, Routine [facility] furosemide (LASIX) injection 40 mg 11-26 01:00: 00 11-26 01:57 :00 No 40mg 40 mg, Slow IV Push, BID, 1 dose, First dose (after last modificati on) on Thu11/26/23 at 2000, Routine [facility] divalproex ER (DEPAKOTE ER) 24 hr tablet 1,250 mg 11-26 01:00: 00 11-26 02:38 :40 No 1250mg 1,250 mg, Oral, Q12H, First dose (after last modificati on) on Thu11/26/23 at 2000, Until Discontinu ed, Routine [facility] cyanocobala min (DODEX) injection 1,000 mcg 11-25 18:30: 00 11-25 19:31 :00 No 1000ug 1,000 mcg, Intramuscu lar, ONCE, 1 dose, On Thu11/26/23 at 1330, Routine [facility] [place] thiamine (VITAMIN B1) 100 mg in NaCl 0.9% (NS) piggyback 11-25 18:00: 00 11-30 13:59 :00 No 100mg IV Piggyback, DAILY, 5 doses, First dose on Thu11/26/23 at 1300, Last dose on Thu11/30/23 at 0900, 50 mL [facility] digoxin (LANOXIN) tablet 125 mcg 11-25 16:30: 00 Yes 125ug 125 mcg, Oral, DAILY, First dose on Thu11/26/23 at 1130, Until Discontinu ed, Routine [facility] [place] metoprolol succinate XL (TOPROL XL) tablet 25 mg 11-25 16:15: 00 11-27 13:09 :49 No 25mg 25 mg, Oral, DAILY, First dose on Thu11/26/23 at 1115, Until Discontinu ed, Routine [facility] [place] apixaban (ELIQUIS) tablet 10 mg 11-25 01:00: [...] Routine, Indication s: DVT/PE [Order 2 End] [facility] [place] furosemide (LASIX) injection 40 mg 11-25 01:00: 00 11-25 16:08 :20 No 40mg 40 mg, Slow IV Push, BID, First dose (after last modificati on) on Thu11/25/23 at 2000, Until Discontinu ed, Routine [facility] [place] spironolact one (ALDACTONE) tablet 12.5 mg 11-24 21:00: 00 Yes 12.5mg 12.5 mg, Oral, DAILY, First dose on Thu11/25/23 at 1600, Until Discontinu ed, Routine [facility] [place] lisinopriL (PRINIVIL,Z ESTRIL) tablet 5 mg 11-24 21:00: 00 Yes 5mg 5 mg, Oral, DAILY, First dose on Thu11/25/23 at 1600, Until Discontinu ed, Routine [facility] [place] apixaban (ELIQUIS) tablet 5 mg 11-24 16:30: 00 11-24 16:18 :00 No 5mg 5 mg, Oral, ONCE, 1 dose, On Thu11/25/23 at 1130, Routine, Indication s: DVT/PE [facility] apixaban (ELIQUIS) tablet 5 mg 11-24 14:00: 00 11-24 15:40 :42 No 5mg 5 mg, Oral, BID, 11 doses, First dose (after last modificati on) on Thu11/25/23 at 0900, Last dose on Thu11/30/23 at 0800, Routine, Indication s: DVT/PE [facility] divalproex ER (DEPAKOTE ER) 24 hr tablet 1,000 mg 11-24 13:00: 00 11-25 17:41 :19 No 1000mg 1,000 mg, Oral, Q12H, First dose (after last modificati on) on Thu11/25/23 at 0800, Until Discontinu ed, Routine [facility] [place] ondansetron (ZOFRAN (PF)) injection 4 mg 11-24 03:45: 00 11-24 02:49 :00 No 4mg 4 mg, Slow IV Push, ONCE, On Thu11/24/23 at 2245, For 1 dose, Doses of ondansetro n 16 mg and above need to be administer ed via IV piggyback. For Dose >=24mg ECG monitoring is advisable. [facility] divalproex (DEPAKOTE) delayed release tablet 500 mg 11-24 03:45: 00 11-24 04:49 :00 No 500mg 500 mg, Oral, ONCE, 1 dose, On Thu11/24/23 at 2245, Routine [facility] nitroglycer in (NITROSTAT) sublingual tablet 0.4 mg 11-24 02:36: 01 Yes .4mg 0.4 mg, Sublingual , Q5MIN PRN, Starting on Thu11/24/23 at 2136, Until Discontinu ed, Routine, Chest pain [facility] [place] nystatin (NILSTAT) 100,000 unit/mL suspension 500,000 Units 11-24 01:15: 00 11-26 20:18 :35 No 5mL 500,000 Units (5 mL), Oral, QID, First dose on Thu11/24/23 at 2014, Until Discontinu ed, Routine [facility] [place] acetaminoph en-codeine (TYLENOL #3) 300-30 mg tablet 1 tablet 11-24 01:07: 37 Yes 1{tbl} 1 tablet, Oral, Q6HPRN, Starting on Thu11/24/23 at 2006, Until Discontinu ed, Routine, Pain (scale 4-6) [facility] iopamidol (ISOVUE 370-500 mL) injection 100 mL 11-23 23:15: 00 11-23 22:15 :00 No [id number] 100mL 100 mL, Intravenou s, ONCE, 1 dose, On Thu11/24/23 at 1815, Routine [facility] milrinone in 5 % dextrose (PRIMACOR) 20 mg/100 mL (200 mcg/mL) infusion RTU 11-23 20:45: 00 11-24 18:50 :54 No .25ug/k g/min 0.25 mcg/kg/min ?94.5 kg (7.0875 mL/hr, rounded to 7.09 mL/hr), IV Infusion, CONTINUOUS , Starting on Thu11/24/23 at 1545, 1. Dose to be adjusted by physician or provider. 2. Notify MD if MAP < 65 mmHG. [facility] polyethylen e glycol 3350 powder 17 g 11-23 19:15: 00 Yes 17g 17 g, Oral, DAILY, First dose on Thu11/24/23 at 1415, Until Discontinu ed, Routine [facility] ipratropium -albuteroL (DUONEB) 0.5 mg-3 mg(2.5 mg base)/3 mL nebulizer solution 3 mL 11-23 19:00: 00 Yes 3mL 3 mL, Inhalation , TID, First dose (after last modificati on) on Thu11/24/23 at 1400, Until Discontinu ed, Routine [facility] ondansetron (ZOFRAN (PF)) injection 4 mg 11-23 17:16: 00 11-23 17:24 :00 No 4mg 4 mg, Slow IV Push, ONCE, On Thu11/24/23 at 1230, For 1 dose, Doses of ondansetro n 16 mg and above need to be administer ed via IV piggyback. For Dose >=24mg ECG monitoring is advisable. [facility] apixaban (ELIQUIS) tablet 10 mg 11-23 15:45: 00 11-24 13:38 :20 No 10mg 10 mg, Oral, BID, 14 doses, First dose on Thu11/24/23 at 1045, Last dose on Thu11/30/23 at 2000, Routine, Indication s: DVT/PE [facility] milrinone in 5 % dextrose (PRIMACOR) 20 mg/100 mL (200 mcg/mL) infusion RTU 11-23 15:45: 00 11-23 20:33 :33 No .125ug/ kg/min 0.125 mcg/kg/min ?94.5 kg (3.5438 mL/hr, rounded to 3.54 mL/hr), IV Infusion, CONTINUOUS , Starting on Thu11/24/23 at 1045, 1. Dose to be adjusted by physician or provider. 2. Notify MD if MAP < 65 mmHG. [facility] HYDROcodone -acetaminop hen (NORCO 5) 5-325 mg tablet 1 tablet 11-23 14:28: 00 11-23 15:37 :00 No 1{tbl} 1 tablet, Oral, ONCE, 1 dose, On Thu11/24/23 at 0930, Routine [facility] hydrALAZINE (APRESOLINE ) tablet 10 mg 11-23 12:30: 00 11-25 13:28 :25 No 10mg 10 mg, Oral, Q8H, First dose on Thu11/24/23 at 0730, Until Discontinu ed, Routine [facility] iohexoL (OMNIPAQUE 180-20 mL) injection 11-22 20:31: 56 11-22 20:32 :10 No ONCE INTRA PROCEDURE, Starting on Thu11/23/23 at 1531, Until Thu11/23/23 at 1532, Routine, CV Intraproce dure [facility] nitroglycer in (TRIDIL) 2 mg in 10 mL D5W for Cardiac Cath 11-22 19:32: 38 11-22 20:32 :10 No ONCE INTRA PROCEDURE, Starting on Thu11/23/23 at 1432, Until Thu11/23/23 at 1532, Routine, CV Intraproce dure [facility] heparin 1,000 unit/mL injection 11-22 19:31: 28 11-22 20:32 :10 No ONCE INTRA PROCEDURE, Starting on Thu11/23/23 at 1431, Until Thu11/23/23 at 1532, Routine, CV Intraproce dure [facility] midazolam (VERSED) injection 11-22 19:24: 54 11-22 20:32 :10 No ONCE INTRA PROCEDURE, Starting on Thu11/23/23 at 1424, Until Thu11/23/23 at 1532, Routine, CV Intraproce dure [facility] FENTanyl PF (SUBLIMAZE (PF)) injection 11-22 19:21: 00 11-22 20:32 :10 No ONCE INTRA PROCEDURE, Starting on Thu11/23/23 at 1421, Until Thu11/23/23 at 1532, Routine, CV Intraproce dure [facility] lidocaine 1% (PF) (XYLOCAINE) injection 11-22 19:20: 00 11-22 20:32 :10 No ONCE INTRA PROCEDURE, Starting on Thu11/23/23 at 1420, Until Thu11/23/23 at 1532, Routine, CV Intraproce dure [facility] furosemide 20 mg tablet 11-22 15:47: 27 11-27 00:00 :00 No 20mg Take 1 tablet by mouth every morning and evening. [facility] milrinone in 5 % dextrose (PRIMACOR) 20 mg/100 mL (200 mcg/mL) infusion RTU 11-22 15:45: 00 11-23 15:32 :54 No .25ug/k g/min 0.25 mcg/kg/min ?94.5 kg (7.0875 mL/hr, rounded to 7.09 mL/hr), IV Infusion, CONTINUOUS , Starting on Thu11/23/23 at 1045, 1. Dose to be adjusted by physician or provider. 2. Notify MD if MAP < 65 mmHG. [facility] DULoxetine (CYMBALTA) capsule 30 mg 11-22 14:00: 00 11-27 00:00 :00 No 30mg 30 mg, Oral, DAILY, First dose on Thu11/23/23 at 0900, Until Discontinu ed, Routine [facility] magnesium oxide (MAG-OX 400) tablet 400 mg 11-22 13:45: 00 11-22 14:00 :00 No 400mg 400 mg, Oral, ONCE, 1 dose, On Thu11/23/23 at 0845, Routine [facility] hydrOXYzine (ATARAX) tablet 50 mg 11-22 13:42: 15 Yes 50mg 50 mg, Oral, Q8HPRN, Starting on Thu11/23/23 at 0842, Until Discontinu ed, Routine, Anxiety [facility] [place] KCL (KLOR-CON M20) tablet 40 mEq 11-22 10:45: 00 11-22 10:20 :00 No 40meq 40 mEq, Oral, ONCE, 1 dose, On Thu11/23/23 at 0545, Routine [facility] [place] mirtazapine (REMERON) tablet 15 mg 11-22 02:00: 00 Yes 15mg 15 mg, Oral, QHS, First dose on Thu11/22/23 at 2100, Until Discontinu ed, Routine [facility] [place] atorvastati n (LIPITOR) tablet 40 mg 11-22 02:00: 00 11-25 16:05 :43 No 40mg 40 mg, Oral, QHS, First dose on Thu11/22/23 at 2100, Until Discontinu ed, Routine [facility] [place] divalproex (DEPAKOTE) delayed release tablet 500 mg 11-22 01:00: 00 11-23 12:27 :34 No 500mg 500 mg, Oral, BID, First dose on Thu11/22/23 at 2000, Until Discontinu ed, Routine [facility] milrinone in 5 % dextrose (PRIMACOR) 20 mg/100 mL (200 mcg/mL) infusion RTU 11-21 19:30: 00 11-22 15:38 :58 No .125ug/ kg/min 0.125 mcg/kg/min ?94.5 kg (3.5438 mL/hr, rounded to 3.54 mL/hr), IV Infusion, CONTINUOUS , Starting on Thu11/22/23 at 1430, 1. Dose to be adjusted by physician or provider. 2. Notify MD if MAP < 65 mmHG. [facility] diazePAM (VALIUM) injection 2 mg 11-21 19:28: 00 11-21 20:15 :00 No 2mg 2 mg, Intravenou s, ONCE, 1 dose, On 11/22/23 at 1430, Routine [facility] gabapentin (NEURONTIN) capsule 100 mg 11-21 19:00: 00 Yes 100mg 100 mg, Oral, TID, First dose on 11/22/23 at 1400, Until Discontinu ed, Routine [facility] furosemide (LASIX) injection 40 mg 11-21 19:00: 00 11-24 18:54 :28 No 40mg 40 mg, Slow IV Push, TID, First dose on 11/22/23 at 1400, Until Discontinu ed, Routine [facility] ondansetron (ZOFRAN-ODT ) disintegrat ing tablet 4 mg 11-21 18:45: 00 11-21 18:25 :00 No 4mg 4 mg, Oral, ONCE, 1 dose, On 11/22/23 at 1345, Routine [facility] perflutren lipid microsphere s (DEFINITY) injection 2 mL 11-21 16:45: 00 11-21 16:45 :00 No [id number] 2mL 2 mL, IV Push, ONCE, 1 dose, On 11/22/23 at 1145, Routine [facility] furosemide (LASIX) injection 40 mg 11-21 14:15: 00 11-21 18:23 :20 No 40mg 40 mg, Slow IV Push, BID, 2 doses, First dose on 11/22/23 at 0915, Last dose on Thu11/22/23 at 2000, [facility] 25 mg 11-21 14:15: 00 11-21 20:14 :04 No 25mg 25 mg, Oral, DAILY, First dose on 11/22/23 at 0915, Until Discontinu ed, [facility]ine [facility] tamsulosin (FLOMAX) capsule 0.4 [...] on Arpita 11/26/23 at 0900, Routine [facility] iopamidol (ISOVUE 370-500 mL) injection 80 mL 11-21 14:00: 00 11-21 14:00 :00 No [id number] 80mL 80 mL, Intravenou s, ONCE, 1 dose, On 11/22/23 at 0900, [facility] Sliding Scale Insulin - [...] at 0400, Until Discontinu ed, Routine [facility] furosemide (LASIX) injection 40 mg 11-21 07:45: 00 11-21 07:15 :00 No 40mg 40 mg, Slow IV Push, ONCE, 1 dose, On Thu11/22/23 at 0245, Routine [facility] sodium chloride 7% (HYPER-IRVIN) nebulizer solution 4 mL 11-21 07:00: 00 11-23 14:32 :09 No 4mL 4 mL, Inhalation , DAILY, First dose on Thu11/22/23 at 0200, Until Discontinu ed, Routine [facility] morpHINE (2 mg/mL) injection 2 mg 11-21 06:52: 11 Yes 2mg 2 mg, Slow IV Push, Q4HPRN, Starting on Thu11/22/23 at 0152, Until Discontinu ed, Routine, Pain (scale 7-10) [facility] heparin 25,000 Units/250 mL (Premixed [...] ant therapy. Range, Dosing and Testing: FOR [facility], AND [facility] ONLY - aPTT < [...] once therapeuti c levels are reached. FOR [facility] ONLY - aPTT < 40: [...] ADJUST INITIAL BOLUS OR INITIAL INFUSION RATE. [facility] heparin (1,000 unit/mL, 10 mL vial) for Rebolusing 11-21 06:43: 39 11-23 15:32 :54 No 3000U FOR REBOLUSING , Starting on 11/22/23 at 0143, Until Thu11/24/23 at 1032, Routine, Dosing based on aPPT testing parameters (refer to continuous heparin drip order). [facility] glucagon (GLUCAGEN DIAGNOSTIC KIT) injection 1 mg 11-21 06:36: 57 Yes 1mg [facility] dextrose 50 % in water (D50W) injection 25 mL 11-21 06:36: 57 Yes 25mL [facility] acetaminoph en (TYLENOL) tablet 650 mg 11-21 06:36: 44 Yes 650mg 650 mg, Oral, Q6HPRN, Starting on 11/22/23 at 0136, Until Discontinu ed, Routine, Pain (scale 1-3) [facility] ondansetron (ZOFRAN (PF)) injection 4 mg 11-21 04:45: 00 11-21 03:46 :00 No 4mg 4 mg, Slow IV Push, ONCE, 1 dose, On 11/21/23 at 2345, MICHAEL [facility] acetaminoph en (TYLENOL) tablet 975 mg 11-21 04:45: 00 11-21 03:44 :00 No 975mg 975 mg, Oral, ONCE, 1 dose, On 11/21/23 at 2345, MICHAEL [facility] HEPARIN SODIUM (PORCINE) 1,000 UNIT/ML BOLUS ACS ORDER SET 11-21 04:15: 00 11-21 04:33 :00 No 4000U 4,000 Units, IV Push, ONCE, 1 dose, On 11/21/23 at 2315, MICHAEL [facility] morpHINE (4 mg/mL) injection 4 mg 11-21 04:15: 00 11-21 04:27 :00 No 4mg 4 mg, Slow IV Push, ONCE, 1 dose, On 11/21/23 at 2315, STAT [facility] methylpredn isolone sod succ (SOLU-MEDRO L) injection 125 mg 11-21 04:15: 00 11-21 03:24 :00 No 125mg 125 mg, Slow IV Push, ONCE NOW, 1 dose, On 11/21/23 at 2315, MICHAEL [facility] heparin 25,000 Units/250 mL (Premixed Bag) in [...] ant therapy. Range, Dosing and Testing: FOR [facility], [facility], AND [facility] ONLY - aPTT < 35: Bolus 5000 [...] once therapeuti c levels are reached. FOR [facility] ONLY - aPTT < 40: [...] ADJUST INITIAL BOLUS OR INITIAL INFUSION RATE. [facility] ipratropium -albuteroL (DUONEB) 0.5 mg-3 mg(2.5 mg base)/3 mL nebulizer solution 3 mL 11-21 04:00: 00 11-21 02:51 :00 No 3mL 3 mL, Inhalation , ONCE, 1 dose, On 11/21/23 at 2300, MICHAEL [facility] ipratropium -albuteroL (DUONEB) 0.5 mg-3 mg(2.5 mg base)/3 mL nebulizer solution 3 mL 11-21 03:30: 00 11-21 02:37 :00 No 3mL 3 mL, Inhalation , ONCE, 1 dose, On 11/21/23 at 2230, MICHAEL [facility] NaCl 0.9% (NS) bolus infusion 500 mL 11-21 03:15: 00 11-21 04:14 :00 No 500mL at 999 mL/hr, 500 mL, IV Infusion, ONCE, 1 dose, On 11/21/23 at 2215, STAT [facility] mirtazapine 15 mg tablet 09-30 00:00: 00 Yes 15mg Take 1 tablet by mouth at bedtime. [facility] Metformin HCl 500 MG oral Tablet 13 14:28: 11 Yes 500mg Take 1 tablet (500 mg total) by mouth daily (with breakfast) . [facility] Ibuprofen (MOTRIN) 200 MG oral Tablet 09-29 14:27: 32 09-29 00:00 :00 No 200mg Q.[id number] 3D Take 1 tablet (200 mg total) by mouth every 8 hours as needed for pain. [facility] Fluticasone -Umeclidin- Vilant (Trelegy Ellipta) 100-62.5-25 MCG/ACT inhalation AEROSOL POWDER, BREATH ACTIVATED 09-29 00:00: 00 Yes [id number] 1{puff} Inhale 1 puff into the lungs daily. [facility] Carvedilol 12.5 MG oral Tablet 09-29 00:00: 00 Yes [id number] 12.5mg Take 1 tablet (12.5 mg total) by mouth in the morning and 1 tablet (12.5 mg total) in the evening. Take with meals. [facility] Duloxetine HCl [address] Particles 09-29 00:00: 00 Yes [id number] 20mg Take 1 capsule (20 mg total) by mouth daily. [facility] Acetaminoph en-Codeine (TYLENOL/CO DEINE #3) 300-30 MG oral Tablet 09-29 00:00: 00 Yes [id number] 1{tbl} Q.25D Take 1 tablet by mouth every 6 hours as needed for pain. [facility] Clonazepam 1 MG oral Tablet 09-29 00:00: 00 Yes [id number] 1mg QD Take 1 tablet (1 mg total) by mouth nightly as needed for anxiety. [facility] spironolact one 25 mg tablet 09-29 00:00: 00 11-27 00:00 :00 No 25mg Take 1 tablet by mouth in the morning and 1 tablet in the evening. [facility] metFORMIN 500 mg tablet 09-28 00:00: 00 12-14 00:00 :00 No 500mg Take 1 tablet by mouth in the morning. [facility] Carvedilol 12.5 MG oral Tablet 09-28 00:00: 00 09-29 00:00 :00 No 12.5mg Take 1 tablet (12.5 mg total) by mouth in the morning and 1 tablet (12.5 mg total) in the evening. Take with meals. [facility] dexAMETHaso ne (DECADRON) 4 MG oral tablet 09-28 00:00: 00 09-29 00:00 :00 No 4mg Take 1 tablet (4 mg total) by mouth in the morning and 1 tablet (4 mg total) in the evening. Take with meals. [facility] Arformotero raul Tartrate 15 MCG/2ML inhalation Inhalant Solution 09-21 00:00: 00 Yes 15ug Inhale 2 mL (15 mcg total) into the lungs 2 times daily. [facility] Ipratropium (ATROVENT) 0.02 % inhalation Solution 09-21 00:00: 00 09-29 00:00 :00 No 500ug Take 2.5 mL (500 mcg total) by nebulizati on once. [facility] Varenicline Tartrate 1 MG oral Tablet 09-11 11:33: 57 Yes 1mg Take 1 tablet (1 mg total) by mouth 2 times daily. [facility] Loratadine 10 MG oral Capsule 09-11 11:33: 57 Yes Take by mouth daily. [facility] Metronidazo le 500 MG oral Tablet 09-11 11:33: 57 Yes TAKE ONE (1) TABLET(S) BY MOUTH EVERY EIGHT HOURS FOR 7 DAYS. [facility] Pantoprazol e Sodium 40 MG oral Tablet Delayed Response 09-11 11:33: 57 Yes 40mg Take 1 tablet (40 mg total) by mouth daily. [facility] Mirtazapine 15 MG oral Tablet 09-11 00:00: 00 Yes [id number] 15mg QD Take 1 tablet (15 mg total) by mouth nightly as needed. [facility] Acetaminoph en-Codeine (TYLENOL/CO DEINE #3) 300-30 MG oral Tablet 09-11 00:00: 00 09-29 00:00 :00 No [id number] 1{tbl} Q.25D Take 1 tablet by mouth every 6 hours as needed for pain. [facility] DULoxetine (CYMBALTA) 60 MG capsule 09-09 00:00: 00 10-08 23:59 :00 No 60mg QD Take 1 capsule (60 mg total) by mouth daily for 30 days. [facility] varenicline (CHANTIX) 1 mg tablet 09-08 10:51: 03 Yes 1mg Q.5D Take 1 tablet (1 mg total) by mouth 2 (two) times daily Give with meals and with a full glass of water.. [facility] atorvastati n (LIPITOR) 20 MG tablet 09-08 10:51: 03 Yes 20mg QD Take 1 tablet (20 mg total) by mouth daily. [facility] Cyanocobala min (Vitamin B-12) 1000 MCG oral Tablet 09-08 00:00: 00 10-08 04:59 :00 No 1000ug Take 1 tablet (1,000 mcg total) by mouth daily. [facility] lidocaine (LIDODERM) 4 % patch 09-08 00:00: 00 10-07 23:59 :00 No 3{patch } Q24H Place 3 patches onto the skin daily for 30 days. [facility] metoprolol succinate (TOPROL-XL) 25 MG 24 hr tablet 09-07 16:47: 05 09-07 00:00 :00 No 25mg QD Take 1 tablet (25 mg total) by mouth daily. [facility] albuterol HFA (VENTOLIN HFA) 90 mcg/actuati on inhaler 09-07 16:47: 05 09-07 00:00 :00 No 1{puff} Inhale 1 puff by mouth via inhaler every 6 (six) hours as needed for Wheezing. [facility] fluticasone -umeclidin- vilanter (Trelegy Ellipta) 200-62.5-25 mcg DsDv 09-07 16:47: 05 09-07 00:00 :00 No QD Inhale by mouth via inhaler daily. [facility] Albuterol HFA 108 (90 Base) MCG/ACT IN AERS 09-07 00:00: 00 10-07 04:59 :00 No 1{puff} Q.25D Inhale 1 puff into the lungs every 6 hours as needed. [facility] Baclofen 5 MG oral Tablet 09-07 00:00: 00 10-07 04:59 :00 No 5mg Take 1 tablet (5 mg total) by mouth nightly. [facility] Sennosides- Docusate Sodium 8.6-50 MG oral Tablet 09-07 00:00: 00 10-07 04:59 :00 No 2{tbl} Take 2 tablets by mouth 2 times daily. [facility] furosemide (LASIX) 20 MG tablet 09-07 00:00: 00 10-06 23:59 :00 No 20mg QD Take 1 tablet (20 mg total) by mouth daily for 30 days. [facility] fluticasone -umeclidin- vilanter (Trelegy Ellipta) 200-62.5-25 mcg DsDv 09-07 00:00: 00 10-06 23:59 :00 No 1{inhal ation} QD Inhale 1 Inhalation by mouth via inhaler daily for 30 days. [facility] metoprolol succinate (TOPROL-XL) 25 MG 24 hr tablet 09-07 00:00: 00 10-06 23:59 :00 No 25mg QD Take 1 tablet (25 mg total) by mouth daily for 30 days. [facility] tamsulosin (FLOMAX) 0.4 mg Cap 24 hr capsule 09-07 00:00: 00 10-06 23:59 :00 No .4mg QD Take 1 capsule (0.4 mg total) by mouth daily for 30 days. [facility] polyethylen e glycol (GLYCOLAX) 17 gram packet 09-07 00:00: 00 10-06 23:59 :00 No 17g Q.5D Take 17 g by mouth 2 (two) times daily for 30 days. [facility] gabapentin (NEURONTIN) 400 MG capsule 09-07 00:00: 00 10-06 23:59 :00 No 400mg Q.[id number] 3D Take 1 capsule (400 mg total) by mouth 3 (three) times daily for 30 days. [facility] lacosamide (VIMPAT) 100 mg in NaCl 0.9% (NS) 50 mL piggyback 08-12 21:15: 00 08-12 21:23 :00 No 100mg 100 mg, IV Piggyback, ONCE, 1 dose, On Thu08/12/23 at 1515, Administer over 30 Minutes, 50 mL
Facu lty member approving Restricted medication : MJ BRYAN [facility] Dicyclomine HCl 20 MG oral Tablet 08-06 00:00: 00 Yes 20mg Take 1 tablet (20 mg total) by mouth 4 times daily. [facility] Tamsulosin HCl 0.4 MG oral Capsule 2022-07 00:00: 00 Yes TAKE ONE (1) CAPSULE(S) BY MOUTH DAILY FOR 5 DAYS. [facility] tamsulosin (FLOMAX) 0.4 mg Cap 24 hr capsule 2022-07 00:00: 00 06-22 23:59 :00 No .4mg QD Take 1 capsule (0.4 mg total) by mouth daily for 5 days. [facility] varenicline (CHANTIX) 1 mg tablet 2022-07 19:45: 32 Yes 1mg Q.5D Take 1 tablet (1 mg total) by mouth 2 (two) times daily Give with meals and with a full glass of water.. [facility] atorvastati n (LIPITOR) 20 MG tablet 2022-07 19:45: 32 Yes 20mg QD Take 1 tablet (20 mg total) by mouth daily. [facility] metoprolol succinate (TOPROL-XL) 25 MG 24 hr tablet 2022-07 19:45: 32 09-07 00:00 :00 No 25mg QD Take 1 tablet (25 mg total) by mouth daily. [facility] albuterol HFA (VENTOLIN HFA) 90 mcg/actuati on inhaler 2022-07 19:45: 32 09-07 00:00 :00 No 1{puff} Inhale 1 puff by mouth via inhaler every 6 (six) hours as needed for Wheezing. [facility] fluticasone -umeclidin- vilanter (Trelegy Ellipta) 200-62.5-25 mcg DsDv 2022-07 19:45: 32 09-07 00:00 :00 No QD Inhale by mouth via inhaler daily. [facility] acetaminoph en-codeine (TYLENOL #3) 300-30 mg per tablet 2022-07 18:02: 00 06-16 00:00 :00 No 1{tbl} Take 1 tablet by mouth every 4 (four) hours as needed for Pain. [facility] DULoxetine (CYMBALTA) 30 MG capsule 2022-07 00:00: 00 09-08 00:00 :00 No 30mg QD Take 1 capsule (30 mg total) by mouth daily for 90 days. [facility] metroNIDAZO LE (FLAGYL) 500 MG tablet 2022-07 00:00: 00 07-04 23:59 :00 No 500mg Take 1 tablet (500 mg total) by mouth every 8 (eight) hours for 18 days. [facility] ciprofloxac in HCl (CIPRO) 500 MG tablet 2022-07 00:00: 00 07-04 23:59 :00 No 500mg Q.5D Take 1 tablet (500 mg total) by mouth 2 (two) times daily for 18 days. [facility] cyclobenzap rine (FLEXERIL) 10 MG tablet 2022-07 00:00: 00 06-26 23:59 :00 No 10mg Q.[id number] 3D Take 1 tablet (10 mg total) by mouth 3 (three) times daily for 10 days. [facility] oxyCODONE (OXY-IR) 10 mg tablet 2022-07 00:00: 00 06-26 23:59 :00 No 10mg Take 1 tablet (10 mg total) by mouth every 8 (eight) hours as needed for up to 10 days. Max Daily Amount: 30 mg [facility] nystatin (MYCOSTATIN ) 100,000 unit/mL suspension 2022-07 00:00: 00 06-21 23:59 :00 No [id number] Q.25D Take 5 mLs (500,000 Units total) by mouth 4 (four) times daily for 5 days. [facility] dexAMETHaso ne (DECADRON) 2 MG tablet 2022-07 00:00: 00 06-08 23:59 :00 No 1mg Take 0.5 tablets (1 mg total) by mouth 2 (two) times daily with breakfast and dinner for 2 days. [facility] metoprolol succinate (TOPROL-XL) 25 MG 24 hr tablet 2022-07 17:44: 21 Yes 25mg QD Take 1 tablet (25 mg total) by mouth daily. [facility] varenicline (CHANTIX) 1 mg tablet 2022-07 17:44: 21 Yes 1mg Q.5D Take 1 tablet (1 mg total) by mouth 2 (two) times daily Give with meals and with a full glass of water.. [facility] albuterol HFA (VENTOLIN HFA) 90 mcg/actuati on inhaler 2022-07 17:44: 21 Yes 1{puff} Inhale 1 puff by mouth via inhaler every 6 (six) hours as needed for Wheezing. [facility] fluticasone -umeclidin- vilanter (Trelegy Ellipta) 200-62.5-25 mcg DsDv 2022-07 17:44: 21 Yes QD Inhale by mouth via inhaler daily. [facility] atorvastati n (LIPITOR) 20 MG tablet 2022-07 17:44: 21 Yes 20mg QD Take 1 tablet (20 mg total) by mouth daily. [facility] acetaminoph en-codeine (TYLENOL #3) 300-30 mg per tablet 2022-07 17:44: 21 Yes 1{tbl} Take 1 tablet by mouth every 4 (four) hours as needed for Pain. [facility] Naloxone (NARCAN) 4 MG/0.1ML nasal Liquid 2022-07 00:00: 00 Yes 4mg 0.1 mL (4 mg total) as needed. Cynthia carter senna (SENOKOT) 8.6 mg tablet 2022-07 00:00: 00 06-18 23:59 :00 No 17.2mg Q.5D Take 2 tablets (17.2 mg total) by mouth 2 (two) times daily for 14 days. [facility] cyclobenzap rine (FLEXERIL) 10 MG tablet 2022-07 00:00: 00 06-16 00:00 :00 No 10mg [id number] 3D Take 1 tablet (10 mg total) by mouth 3 (three) times daily for 10 days. [facility] methocarbam oL (ROBAXIN) 500 MG tablet 2022-07 00:00: 00 06-16 00:00 :00 No 500mg Q.25D Take 1 tablet (500 mg total) by mouth 4 (four) times daily for 10 days. [facility] lactulose (CHRONULAC) 20 gram/30 mL solution 2022-07 00:00: 00 06-11 23:59 :00 No 20g [id number] 3D Take 30 mLs (20 g total) by mouth 3 (three) times daily for 7 days. [facility] ondansetron (ZOFRAN-ODT ) 4 MG disintegrat ing tablet 2022-07 00:00: 00 06-11 23:59 :00 No 4mg Take 1 tablet (4 mg total) by mouth every 6 (six) hours as needed for up to 7 days. [facility] metoprolol succinate (TOPROL-XL) 25 MG 24 hr tablet 2022-07 15:23: 22 Yes 25mg QD Take 1 tablet (25 mg total) by mouth daily. [facility] varenicline (CHANTIX) 1 mg tablet 2022-07 15:23: 22 Yes 1mg Q.5D Take 1 tablet (1 mg total) by mouth 2 (two) times daily Give with meals and with a full glass of water.. [facility] albuterol HFA (VENTOLIN HFA) 90 mcg/actuati on inhaler 2022-07 15:23: 22 Yes 1{puff} Inhale 1 puff by mouth via inhaler every 6 (six) hours as needed for Wheezing. [facility] fluticasone -umeclidin- vilanter (Trelegy Ellipta) 200-62.5-25 mcg DsDv 2022-07 15:23: 22 Yes QD Inhale by mouth via inhaler daily. [facility] atorvastati n (LIPITOR) 20 MG tablet 2022-07 15:23: 22 Yes 20mg QD Take 1 tablet (20 mg total) by mouth daily. [facility] acetaminoph en-codeine (TYLENOL #3) 300-30 mg per tablet 2022-07 15:23: 22 Yes 1{tbl} Take 1 tablet by mouth every 4 (four) hours as needed for Pain. [facility] acetaminoph en-codeine (TYLENOL #3) 300-30 mg per tablet 2022-07 09:42: 02 Yes 1{tbl} Take 1 tablet by mouth every 4 (four) hours as needed for Pain. Max Daily Amount: 6 tablets [facility] varenicline (CHANTIX) 1 mg tablet 2022-07 09:40: 04 Yes 1mg Q.5D Take 1 tablet (1 mg total) by mouth 2 (two) times daily Give with meals and with a full glass of water.. [facility] albuterol HFA (VENTOLIN HFA) 90 mcg/actuati on inhaler 2022-07 09:40: 04 Yes 1{puff} Inhale 1 puff by mouth via inhaler every 6 (six) hours as needed for Wheezing. [facility] fluticasone -umeclidin- vilanter (Trelegy Ellipta) 200-62.5-25 mcg DsDv 2022-07 09:40: 04 Yes QD Inhale by mouth via inhaler daily. [facility] atorvastati n (LIPITOR) 20 MG tablet 2022-07 09:40: 04 Yes 20mg QD Take 1 tablet (20 mg total) by mouth daily. [facility] metoprolol succinate (TOPROL-XL) 25 MG 24 hr tablet 2022-07 09:13: 28 Yes 25mg QD Take 1 tablet (25 mg total) by mouth daily. [facility] Atorvastati n Calcium 20 MG oral Tablet 2022-07 00:00: 00 Yes 20mg Take 1 tablet (20 mg total) by mouth daily. Cynthia catrer metoprolol succinate XL 25 mg 24 hr tablet 2022-07 00:00: 00 11-27 00:00 :00 No 25mg Take 1 tablet by mouth every morning. [facility] Nitroglycer in 0.4 MG sublingual SL Tab 2022-07 00:00: 00 Yes .4mg 1 tablet (0.4 mg total). Cynthia carter Furosemide 40 MG oral Tablet 2022-07 00:00: 00 Yes 40mg 1 tablet (40 mg total). Cynthia carter Aspirin 81 MG oral Chewable Tablet 2022-07 00:00: 00 Yes 81mg 1 tablet (81 mg total). Cynthia carter Fluticasone -Umeclidin- Vilant (Trelegy Ellipta) 100-62.5-25 MCG/ACT inhalation AEROSOL POWDER, BREATH ACTIVATED 2022-0716 00:00: 00 09-29 00:00 :00 No 1{puff} 1 puff by other route daily. Cynthia carter Duloxetine HCl [address] Particles 04-03 00:00: 00 Yes 30mg Take 1 capsule (30 mg total) by mouth daily. Cynthia carter Gabapentin 300 MG oral Capsule 04-03 00:00: 00 Yes Cynthia carter furosemide (LASIX) 20 MG tablet 04-03 00:00: 00 09-07 00:00 :00 No 20mg QD Take 1 tablet (20 mg total) by mouth daily. [facility] aspirin 81 MG EC tablet 04-03 00:00: 00 07-02 23:59 :00 No 81mg QD Take 1 tablet (81 mg total) by mouth daily for 90 days. [facility] divalproex (DEPAKOTE) 500 MG EC tablet 04-03 00:00: 00 07-02 23:59 :00 No 500mg Q.5D Take 1 tablet (500 mg total) by mouth 2 (two) times daily for 90 days. [facility] lisinopriL (PRINIVIL,Z ESTRIL) 5 MG tablet 04-03 00:00: 00 05-28 00:00 :00 No 5mg QD Take 1 tablet (5 mg total) by mouth daily. [facility] clonazePAM (KlonoPIN) 0.5 MG tablet 04-03 00:00: 00 05-03 23:59 :00 No .25mg Take 0.5 tablets (0.25 mg total) by mouth 2 (two) times daily as needed for Anxiety for up to 30 days. Max Daily Amount: 0.5 mg [facility] HYDROcodone -acetaminop hen (NORCO 10-325) 10-325 mg per tablet 04-03 00:00: 00 04-13 23:59 :00 No 1{tbl} Take 1 tablet by mouth every 6 (six) hours as needed for up to 10 days. Max Daily Amount: 4 tablets [facility] methocarbam oL (ROBAXIN) 500 MG tablet 04-03 00:00: 00 04-13 23:59 :00 No 500mg Q.25D Take 1 tablet (500 mg total) by mouth 4 (four) times daily for 10 days. [facility] gabapentin (NEURONTIN) 300 MG capsule 04-02 00:00: 00 04-03 00:00 :00 No 300mg Q.[id number] 3D Take 1 capsule (300 mg total) by mouth 3 (three) times daily for 90 days. [facility] divalproex (DEPAKOTE) 500 MG EC tablet 04-02 00:00: 00 04-03 00:00 :00 No 500mg Q.5D Take 1 tablet (500 mg total) by mouth 2 (two) times daily for 90 days. [facility] clonazePAM (KlonoPIN) 0.5 MG tablet 04-02 00:00: 00 04-03 00:00 :00 No .25mg Take 0.5 tablets (0.25 mg total) by mouth 2 (two) times daily as needed for Anxiety for up to 30 days. Max Daily Amount: 0.5 mg [facility] HYDROcodone -acetaminop hen (NORCO 10-325) 10-325 mg per tablet 04-02 00:00: 00 04-03 00:00 :00 No 1{tbl} Take 1 tablet by mouth every 6 (six) hours as needed for up to 10 days. Max Daily Amount: 4 tablets [facility] methocarbam oL (ROBAXIN) 500 MG tablet 04-02 00:00: 00 04-03 00:00 :00 No 500mg Q.25D Take 1 tablet (500 mg total) by mouth 4 (four) times daily for 10 days. [facility] Metronidazo le 500 MG oral Tablet 7- 00:00: 00 Goldie Garcia - Nadir carter Clonazepam 1 MG oral Tablet 6-30 00:00: 00 09-29 00:00 :00 No 1mg 1 tablet (1 mg total). Cynthia carter Lisinopril 5 MG oral Tablet 01-15 00:00: 00 Yes Cynthia carter Metoprolol Tartrate (LOPRESSOR) 25 MG oral Tablet 01-15 00:00: 00 Yes 25mg 1 tablet (25 mg total). Cynthia carter divalproex 500 mg delayed release tablet 01-15 00:00: 00 11-27 00:00 :00 No 500mg Take 1 tablet by mouth in the morning and 1 tablet in the evening. [facility] Divalproex Sodium 500 MG oral Tablet Delayed Response 01-14 00:00: 00 Yes 250mg 250 mg. Cynthia carter lacosamide (VIMPAT) 200 mg in NaCl 0.9% (NS) 50 mL piggyback 12-11 19:45: 00 12-11 19:57 :00 No 200mg 200 mg, IV Piggyback, ONCE, 1 dose, On Arpita 12/11/22 at 1445, Administer over 30 Minutes, 50 mL
Facu lty member approving Restricted medication : Alfonso ALVARADO [facility] ketorolac (TORADOL) injection 15 mg 12-11 18:15: 00 12-11 17:25 :00 No 15mg 15 mg, Slow IV Push, ONCE, 1 dose, On Arpita 12/11/22 at 1315, MICHAEL [facility] iopamidol (ISOVUE 370-500 mL) injection 80 mL 12-11 16:30: 00 12-11 16:27 :00 No [id number] 80mL 80 mL, Intravenou s, ONCE, 1 dose, On Arpita 12/11/22 at 1130, Routine [facility] nitroglycer in (NITROL) 2 % ointment 0.5 Inch 12-11 15:30: 00 12-11 14:31 :00 No .5[in_u s] 0.5 Inch, Transderma l (Apply To Skin), ONCE, 1 dose, On Thu12/11/22 at 1030, [facility] aspirin chewable tablet 324 mg 12-11 15:30: 00 12-11 14:30 :00 No 324mg 324 mg, Oral, ONCE, 1 dose, On Thu12/11/22 at 1030, Routine [facility] ondansetron (ZOFRAN (PF)) injection 4 mg 12-11 15:30: 00 12-11 14:29 :00 No 4mg 4 mg, Slow IV Push, ONCE, 1 dose, On Thu12/11/22 at 1030, [facility] LORazepam (ATIVAN) injection 1 mg 12-11 15:00: 00 12-11 14:57 :00 No 1mg 1 mg, Slow IV Push, ONCE, 1 dose, On Thu12/11/22 at 1000, STAT [facility] Lacosamide (VIMPAT) 100 mg tablet 12-11 00:00: 00 Yes [id number] 100mg Take 1 tablet by mouth in the morning and 1 tablet in the evening. [facility] acetaminoph en-codeine (TYLENOL #3) 300-30 [...] 1 dose, On Thu11/17/22 at 2345, MICHAEL [facility] morpHINE (4 mg/mL) injection 4 mg 11-18 03:45: 00 11-18 03:38 :00 No 4mg 4 mg, Slow IV Push, ONCE, 1 dose, On Thu11/17/22 at 2245, Routine [facility] methocarbam oL (ROBAXIN) injection 1,000 mg 11-18 00:30: 00 11-17 23:47 :00 No 1000mg 1,000 mg, Intravenou s, ONCE, 1 dose, On Thu11/17/22 at 1930, MICHAEL [facility] methocarbam oL 500 mg tablet 11-18 00:00: 00 12-02 00:00 :00 No [id number] 1000mg Take 2 tablets by mouth 4 (four) times daily as needed for Pain (scale 7-10). [facility] acetaminoph en-codeine 300-60 mg tablet 11-18 00:00: 00 11-26 04:59 :00 No [id number] 1{tbl} Take 1 tablet by mouth every 6 (six) hours as needed for Pain for up to 7 days. Indication s: acute pain [facility] ketorolac (TORADOL) injection 15 mg 11-18 00:00: 00 11-17 23:08 :00 No 15mg 15 mg, Slow IV Push, ONCE, 1 dose, On Thu11/17/22 at 1900, Routine [facility] morpHINE (4 mg/mL) injection 4 mg 11-17 23:45: 00 11-17 23:49 :00 No 4mg 4 mg, Slow IV Push, ONCE, 1 dose, On Thu11/17/22 at 1845, Routine [facility] ondansetron (ZOFRAN (PF)) injection 4 mg 11-17 23:15: 00 11-17 23:06 :00 No 4mg 4 mg, Slow IV Push, ONCE, 1 dose, On Thu11/17/22 at 1815, MICHAEL [facility] lisinopriL (PRINIVIL,Z ESTRIL) tablet 10 mg 08-02 15:00: 00 Yes 10mg 10 mg, Oral, DAILY, First dose on Thu08/02/22 at 0900, Until Discontinu ed, Routine [facility] predniSONE (DELTASONE) tablet 40 mg 08-02 15:00: 00 08-07 14:59 :00 No 40mg 40 mg, Oral, DAILY, 5 doses, First dose on Thu08/02/22 at 0900, Last dose on Thu08/06/22 at 0900, Routine [facility] morpHINE (2 mg/mL) injection 2 mg 08-02 03:29: 15 Yes 2mg 2 mg, Slow IV Push, Q4HPRN, Starting on Thu08/01/22 at 2129, Until Discontinu ed, Routine, Pain (scale 7-10) [facility] levETIRAcet am (KEPPRA) in NACL (ISO-OS) 1,000 mg/100 mL RTU 08-02 00:00: 00 Yes 1000mg 1,000 mg, IV Piggyback, Q12H, First dose on Thu08/01/22 at 1800, Until Discontinu ed, Administer over 15 Minutes, 100 mL [facility] MULTIVITAMI N ORAL 08-01 23:49: 34 Yes 1{tbl} Take 1 Tab by mouth daily. [facility] omega-3 fatty acids-vitam in E (FISH OIL) 1,000 mg capsule 08-01 23:49: 34 Yes 1g Take 1 g by mouth daily. [facility] loratadine (CLARITIN LIQUI-GEL) 10 mg capsule 08-01 23:49: 34 Yes Take by mouth daily. [facility] ondansetron 4 mg tablet 08-01 23:49: 34 Yes 4mg Take 1 tablet by mouth every 8 (eight) hours as needed for Nausea and Vomiting (N/V). [facility] omega-3 fatty acids-vitam in E (FISH OIL) 1,000 mg capsule 08-01 23:49: 34 Yes 1g Take 1 g by mouth daily. [facility] pantoprazol e 40 mg EC tablet 08-01 23:49: 34 11-27 00:00 :00 No 40mg Take 40 mg by mouth daily. [facility] benzonatate (TESSALON PERLES) capsule 100 mg 08-01 20:00: 00 Yes 100mg 100 mg, Oral, Q8H, First dose on Thu08/01/22 at 1400, Until Discontinu ed, Routine [facility] ipratropium -albuteroL (DUONEB) 0.5 mg-3 mg(2.5 mg base)/3 mL nebulizer solution 3 mL 08-01 18:00: 00 Yes 3mL 3 mL, Inhalation , QID, First dose on Thu08/01/22 at 1200, Until Discontinu ed, Routine [facility] ipratropium -albuteroL (DUONEB) 0.5 mg-3 mg(2.5 mg base)/3 mL nebulizer solution 3 mL 08-01 17:07: 07 Yes 3mL 3 mL, Inhalation , QIDPRN, Starting on Thu08/01/22 at 1107, Until Discontinu ed, MICHAEL, Wheezing, Shortness of Breath [facility] sulfur hexafluorid e microsphr (LUMASON) injection 5 mL 08-01 17:00: 00 08-01 17:00 :00 No [id number] 5mL 5 mL, Intravenou s, ONCE, 1 dose, On Thu08/01/22 at 1100, Routine
[employer] agent team member approving Restricted medication : KYLEE DIEGO [facility] pantoprazol e (PROTONIX) EC tablet 40 mg 08-01 15:00: 00 Yes 40mg 40 mg, Oral, DAILY, First dose on Thu08/01/22 at 0900, Until Discontinu ed, Routine [facility] aspirin chewable tablet 81 mg 08-01 15:00: 00 Yes 81mg 81 mg, Oral, DAILY, First dose on Thu08/01/22 at 0900, Until Discontinu ed, Routine [facility] amLODIPine (NORVASC) tablet 10 mg 08-01 15:00: 00 Yes 10mg 10 mg, Oral, DAILY, First dose on Thu08/01/22 at 0900, Until Discontinu ed, Routine [facility] levETIRAcet am (KEPPRA) tablet 500 mg 08-01 14:00: 00 08-01 23:56 :35 No 500mg 500 mg, Oral, BID, First dose on Thu08/01/22 at 0800, Until Discontinu ed, Routine [facility] carvediloL (COREG) tablet 6.25 mg 08-01 14:00: 00 08-01 17:29 :13 No 6.25mg 6.25 mg, Oral, BID MEALS, First dose on Thu08/01/22 at 0800, Until Discontinu ed, Routine [facility] levETIRAcet am (KEPPRA) in NACL (ISO-OS) 1,000 mg/100 mL RTU 08-01 06:45: 00 08-01 06:32 :00 No 1000mg 1,000 mg, IV Piggyback, ONCE, 1 dose, On Thu08/01/22 at 0045, Administer over 15 Minutes, 100 mL [facility] LORazepam (ATIVAN) injection 1 mg 08-01 05:52: 54 Yes 1mg 1 mg, Slow IV Push, Q4HPRN, Starting on Thu07/31/22 at 2352, Until Discontinu ed, Routine, Seizures, Agitation, Anxiety, ETOH / Cocaine Withdrawl [facility] foLIC acid (FOLATE) tablet 1 mg 08-01 05:45: 00 Yes 1mg 1 mg, Oral, DAILY, First dose on Thu07/31/22 at 2345, Until Discontinu ed, Routine [facility] thiamine (VITAMIN B1) tablet 100 mg 08-01 05:45: 00 Yes 100mg 100 mg, Oral, DAILY, First dose on Thu07/31/22 at 2345, Until Discontinu ed, Routine [facility] LORazepam (ATIVAN) injection 0.5 mg 08-01 05:30: 00 08-01 05:29 :00 No .5mg 0.5 mg, Slow IV Push, ONCE, 1 dose, On Thu07/31/22 at 2330, MICHAEL [facility] atorvastati n (LIPITOR) tablet 40 mg 08-01 03:00: 00 Yes 40mg 40 mg, Oral, QHS, First dose on Thu07/31/22 at 2100, Until Discontinu ed, Routine [facility] diphenhydrA MINE (BENADRYL) tablet 25 mg 08-01 00:32: 02 Yes 25mg 25 mg, Oral, Q6HPRN, Starting on Thu07/31/22 at 1832, Until Discontinu ed, Routine, Itching [facility] enoxaparin (LOVENOX) injection 40 mg 07-31 23:00: 00 Yes 40mg 40 mg, Subcutaneo us, DAILY, First dose on Thu07/31/22 at 1700, Until Discontinu ed, Routine [facility] morpHINE (2 mg/mL) injection 2 mg 07-31 23:00: 00 07-31 22:29 :00 No 2mg 2 mg, Slow IV Push, ONCE, 1 dose, On Thu07/31/22 at 1700, Routine [facility] HYDROcodone -acetaminop hen (NORCO) 10-325 mg tablet 1 tablet 07-31 22:01: 36 Yes 1{tbl} 1 tablet, Oral, Q6HPRN, Starting on Thu07/31/22 at 1601, Until Discontinu ed, Routine, Pain (scale 7-10) [facility] HYDROcodone -acetaminop hen (NORCO 5) 5-325 mg tablet 1 tablet 07-31 22:01: 34 08-02 22:00 :34 No 1{tbl} 1 tablet, Oral, Q6HPRN, Starting on Thu07/31/22 at 1601, Until 08/02/22 at 1600, Routine, Pain (scale 4-6) [facility] acetaminoph en (TYLENOL) tablet 650 mg 07-31 22:01: 33 Yes 650mg 650 mg, Oral, Q6HPRN, Starting on Arpita 07/31/22 at 1601, Until Discontinu ed, Routine, Pain (scale 1-3) [facility] ketorolac (TORADOL) injection 15 mg 07-31 21:45: 00 07-31 20:50 :00 No 15mg 15 mg, Slow IV Push, ONCE, 1 dose, On Arpita 07/31/22 at 1545, Routine [facility] ondansetron (ZOFRAN (PF)) injection 4 mg 07-31 21:00: 00 07-31 20:47 :00 No 4mg 4 mg, Slow IV Push, ONCE, 1 dose, On Arpita 07/31/22 at 1500, MICHAEL [facility] furosemide (LASIX) injection 40 mg 07-31 20:15: 00 Yes 40mg 40 mg, Slow IV Push, Q12H, First dose on Arpita 07/31/22 at 1415, Until Discontinu ed, Routine [facility] methylpredn isolone sod succ (SOLU-MEDRO L) injection 125 mg 07-31 19:30: 00 07-31 18:54 :00 No 125mg 125 mg, Slow IV Push, ONCE NOW, 1 dose, On Arpita 07/31/22 at 1330, MICHAEL [facility] ipratropium -albuteroL (DUONEB) 0.5 mg-3 mg(2.5 mg base)/3 mL nebulizer solution 3 mL 07-31 19:30: 00 07-31 18:48 :00 No 3mL 3 mL, Inhalation , ONCE, 1 dose, On Arpita 07/31/22 at 1330, MICHAEL [facility] pantoprazol e 40 mg EC tablet 07-31 17:15: 40 Yes 40mg Take 40 mg by mouth daily. [facility] MULTIVITAMI N ORAL 12 15:50: 57 Yes 1{tbl} Take 1 Tab by mouth daily. [facility] loratadine (CLARITIN LIQUI-GEL) 10 mg capsule 07-31 15:50: 57 Yes Take by mouth daily. [facility] ondansetron 4 mg tablet 07-31 15:50: 57 Yes 4mg Take 4 mg by mouth every 8 (eight) hours as needed. [facility] omega-3 fatty acids-vitam in E (FISH OIL) 1,000 mg capsule 07-31 15:21: 27 Yes 1g Take 1 g by mouth daily. [facility] TAKE ONE (1) TABLET(S) BY MOUTH THREE TIMES A DAY NEEDED. 07-28 00:00: 00 No Methylpredn isolone 4 mg tablet 2021-07 00:00: 00 05-12 04:59 :00 No [id number] 4mg Take 1 tablet through enteral tube in the morning for 1 dose. [facility] Methylpredn isolone 4 mg tablet 2021-07 00:00: 00 05-11 04:59 :00 No [id number] 4mg Take 1 tablet through enteral tube every 12 (twelve) hours for 2 doses. [facility] MULTIVITAMI N ORAL 2021-07 14:44: 48 Yes 1{tbl} Take 1 Tab by mouth daily. [facility] omega-3 fatty acids-vitam in E (FISH OIL) 1,000 mg capsule 2021-07 14:44: 48 Yes 1g Take 1 g by mouth daily. [facility] loratadine (CLARITIN LIQUI-GEL) 10 mg capsule 2021-07 14:44: 48 Yes Take by mouth daily. [facility] ondansetron (ZOFRAN) 4 mg tablet 2021-07 14:44: 48 Yes 4mg Take 4 mg by mouth every 8 (eight) hours as needed. [facility] pantoprazol e (PROTONIX) 40 mg EC tablet 2021-07 14:44: 48 Yes 40mg Take 40 mg by mouth daily. [facility] DULoxetine 30 mg capsule 2021-07 14:00: 00 Yes 30mg Take 1 capsule by mouth in the morning. [facility] divalproex (DEPAKOTE) EC tablet 1,000 mg 2021-07 13:00: 00 Yes 1000mg 1,000 mg, Oral, BID, First dose (after last modificati on) on Thu05/08/22 at 0800, Until Discontinu ed, Routine [facility] Methylpredn isolone (MEDROL) tablet 4 mg 2021-07 08:50: 10 05-09 08:59 :00 No 4mg 4 mg, Oral, Q8H TAPER, 3 doses, First dose on Thu05/08/22 at 0400, Last dose on Thu05/08/22 at 2000, Routine [facility] acetaminoph en-codeine (TYLENOL #3) 300-30 mg tablet 1 tablet 2021-07 04:07: 01 Yes 1{tbl} 1 tablet, Oral, Q4HPRN, Starting on Thu05/07/22 at 2307, Until Discontinu ed, Routine, Pain (scale 7-10) [facility] morpHINE (2 mg/mL) injection 2 mg 2021-07 03:03: 15 Yes 2mg 2 mg, Slow IV Push, Q4HPRN, Starting on Thu05/07/22 at 2203, Until Discontinu ed, Routine, Pain (scale 7-10) [facility] LORazepam (ATIVAN) tablet 1 mg 2021-07 00:02: 18 Yes 1mg 1 mg, Oral, Q6HPRN, Starting on Thu05/07/22 at 1902, Until Discontinu ed, Routine, Anxiety [facility] cyclobenzap rine 5 mg tablet 2021-07 00:00: 00 Yes [id number] 5mg Take 1 tablet by mouth in the morning and 1 tablet at noon and 1 tablet in the evening. [facility] DULoxetine (CYMBALTA) 30 mg capsule 2021-07 00:00: 00 06-08 05:59 :00 No [id number] 60mg Take 2 capsules by mouth in the morning for 30 days. [facility] divalproex (DEPAKOTE) 250 mg EC tablet 2021-07 00:00: 00 06-08 05:59 :00 No [id number] 750mg Take 3 tablets by mouth every 8 (eight) hours for 30 days. [facility] LORazepam 1 mg tablet 2021-07 00:00: 00 05-19 04:59 :00 No [id number] 1mg Take 1 tablet by mouth every 6 (six) hours as needed for Anxiety or Agitation for up to 10 days. [facility] acetaminoph en-codeine 300-30 mg tablet 2021-07 00:00: 00 05-16 04:59 :00 No [id number] 1{tbl} Take 1 tablet by mouth every 4 (four) hours as needed for Pain (scale 7-10) for up to 7 days. Indication s: acute pain [facility] Methylpredn isolone 4 mg tablet 2021-07 00:00: 00 05-10 04:59 :00 No [id number] 4mg Take 1 tablet by mouth every 8 (eight) hours for 3 doses. [facility] divalproex (DEPAKOTE) EC tablet 750 mg 2021-07 01:00: 00 05-08 09:40 :23 No 750mg 750 mg, Oral, BID, First dose on Thu05/06/22 at 2000, Until Discontinu ed, Routine [facility] levETIRAcet am (KEPPRA) tablet 1,500 mg 2021-07 13:00: 00 05-06 18:38 :22 No 1500mg 1,500 mg, Oral, BID, First dose (after last modificati on) on Thu05/06/22 at 0800, Until Discontinu ed, Routine [facility] levETIRAcet am (KEPPRA) in NACL (ISO-OS) 1,000 [...] at 1430, Until Discontinu ed, [facility] 600 mg 2021-07 19:30: 00 Yes 600mg 600 mg, Oral, TID MEALS, First dose on Thu05/05/22 at 1430, Until Discontinu ed, Rout[facility] gabap[facility] (NEURONTIN) capsule 300 mg 2021-07 19:30: 00 Yes 300mg 300 mg, Oral, TID, First dose on Thu05/05/22 at 1430, Until Discontinu ed, Routine [facility] cyclobenzap rine (FLEXERIL) tablet 5 mg 2021-07 19:30: 00 Yes 5mg 5 mg, Oral, TID, First dose on Thu05/05/22 at 1430, Until Discontinu ed, Routine [facility] acetaminoph en (TYLENOL) tablet 1,000 mg 2021-07 19:30: 00 Yes 1000mg 1,000 mg, Oral, Q8H, First dose on Thu05/05/22 at 1430, Until Discontinu ed, Routine [facility] pantoprazol e (PROTONIX) EC tablet 40 mg 2021-07 14:00: 00 Yes 40mg 40 mg, Oral, DAILY, First dose on Thu05/05/22 at 0900, Until Discontinu ed, Routine [facility] docusate (COLACE) capsule 100 mg 2021-07 14:00: 00 Yes 100mg 100 mg, Oral, DAILY, First dose on Thu05/05/22 at 0900, Until Discontinu ed, Routine [facility] HYDROcodone -acetaminop hen (NORCO) 10-325 mg tablet 1 tablet 2021-07 10:32: 02 05-05 19:18 :52 No 1{tbl} 1 tablet, Oral, Q6HPRN, Starting on Thu05/05/22 at 0532, Until Thu05/05/22 at 1418, Routine, Pain (scale 7-10) [facility] ondansetron (ZOFRAN (PF)) injection 4 mg 2021-07 06:49: 57 Yes 4mg 4 mg, Slow IV Push, Q6HPRN, Starting on Thu05/05/22 at 0149, Until Discontinu ed, Routine, Nausea and Vomiting (N/V) [facility] HYDROcodone -acetaminop hen (NORCO 5) 5-325 mg tablet 1 tablet 2021-07 06:49: 41 05-05 10:32 :14 No 1{tbl} 1 tablet, Oral, Q6HPRN, Starting on Thu05/05/22 at 0149, Until Thu05/05/22 at 0532, Routine, Pain (scale 7-10) [facility] acetaminoph en (TYLENOL) tablet 325 mg 2021-07 06:49: 39 05-05 19:18 :52 No 325mg 325 mg, Oral, Q4HPRN, Starting on Thu05/05/22 at 0149, Until Thu05/05/22 at 1418, Routine, Pain (scale 4-6) [facility] ondansetron (ZOFRAN) tablet 4 mg 2021-07 04:00: 00 05-05 03:26 :00 No 4mg 4 mg, Oral, ONCE, 1 dose, On 05/04/22 at 2300, Routine [facility] morpHINE (2 mg/mL) injection 2 mg 2021-07 04:00: 00 05-05 03:26 :00 No 2mg 2 mg, Slow IV Push, ONCE, 1 dose, On 05/04/22 at 2300, Routine [facility] aspirin 81 mg chewable tablet 04-16 00:00: 00 Yes [id number] 81mg Take 1 tablet by mouth in the morning. [facility] MULTIVITAMI N ORAL 04-15 17:39: 14 Yes 1{tbl} Take 1 Tab by mouth daily. [facility] omega-3 fatty acids-vitam in E (FISH OIL) 1,000 mg capsule 04-15 17:39: 14 Yes 1g Take 1 g by mouth daily. [facility] loratadine (CLARITIN LIQUI-GEL) 10 mg capsule 04-15 17:39: 14 Yes Take by mouth daily. [facility] ondansetron (ZOFRAN) 4 mg tablet 04-15 17:39: 14 Yes 4mg Take 4 mg by mouth every 8 (eight) hours as needed. [facility] pantoprazol e (PROTONIX) 40 mg EC tablet 04-15 17:39: 14 Yes 40mg Take 40 mg by mouth daily. [facility] lisinopril- hydrochloro thiazide 20-12.5 mg per tablet 04-15 15:58: 35 04-15 00:00 :00 No 1{tbl} Take 1 tablet by mouth daily. [facility] levetiracet am (KEPPRA ORAL) 04-15 15:58: 35 04-15 00:00 :00 No Take by mouth. [facility] acetaminoph en-codeine (TYLENOL #4) 300-60 mg tablet 1 tablet 04-15 05:39: 23 04-15 14:39 :42 No 1{tbl} 1 tablet, Oral, Q6HPRN, Starting on Thu04/15/22 at 0039, Until Thu04/15/22 at 0939, Routine, Pain (scale 4-6), Pain (scale 1-3) [facility] LORazepam (ATIVAN) tablet 2 mg 04-15 03:30: 00 04-15 10:27 :00 No 2mg 2 mg, Oral, ONCE, 1 dose, On Thu04/14/22 at 2230, Routine [facility] levETIRAcet am (KEPPRA) tablet 1,000 mg 04-15 02:45: 00 Yes 1000mg 1,000 mg, Oral, BID, First dose (after last modificati on) on Thu04/14/22 at 2145, Until Discontinu ed, Routine [facility] ketorolac (TORADOL) injection 15 mg 04-15 02:13: 00 04-15 02:22 :00 No 15mg 15 mg, Slow IV Push, ONCE, 1 dose, On Thu04/14/22 at 2115, Routine [facility] levETIRAcet am 1,000 mg tablet 04-15 00:00: 00 Yes [id number] 1000mg Take 1 tablet by mouth in the morning and 1 tablet in the evening. [facility] atorvastati n 40 mg tablet 04-15 00:00: 00 01-09 00:00 :00 No [id number] 40mg Take 1 tablet by mouth at bedtime. [facility] lidocaine 5 % (700 mg/patch) patch 04-15 00:00: 00 04-23 04:59 :00 No [id number] 1{patch } Apply 1 Patch to area(s) in the morning for 7 days. [facility] HYDROcodone -acetaminop hen 5-325 mg tablet 04-15 00:00: 00 04-21 04:59 :00 No [id number] 1{tbl} Take 1 tablet by mouth every 6 (six) hours as needed for Pain (scale 7-10) for up to 5 days. Indication s: acute pain [facility] lidocaine (LIDODERM) 5 % (700 mg/patch) patch 1 Patch 04-14 21:45: 29 Yes 1{patch } 1 Patch, Topical, Administer over 12 Hours, [id number], Starting on Thu04/14/22 at 1645, Until Discontinu ed, Routine, Localized pain [facility] aspirin chewable tablet 81 mg 04-14 21:30: 00 Yes 81mg 81 mg, Oral, DAILY, First dose on Thu04/14/22 at 1630, Until Discontinu ed, Routine [facility] acetaminoph en (TYLENOL) tablet 650 mg 04-14 21:29: 25 Yes 650mg 650 mg, Oral, Q6HPRN, Starting on Thu04/14/22 at 1629, Until Discontinu ed, Routine, Pain (scale 1-3), Temp > 38.5 C, Temp > 37.5 C [facility] HYDROcodone -acetaminop hen (NORCO) 10-325 mg tablet 1 tablet 04-14 21:29: 02 04-15 05:39 :41 No 1{tbl} 1 tablet, Oral, Q6HPRN, Starting on Thu04/14/22 at 1629, Until Thu04/15/22 at 0039, Routine, Pain (scale 7-10), Pain (scale 4-6) [facility] sulfur hexafluorid e microsphr (LUMASON) injection 5 mL 04-14 16:45: 00 04-14 16:45 :00 No [id number] 5mL 5 mL, Intravenou s, ONCE, 1 dose, On Thu04/14/22 at 1145, Routine
[employer] agent team member approving Restricted medication : MADELINE PIERRE [facility] clopidogreL (PLAVIX) 75 mg tablet 75 mg 04-14 14:00: 00 Yes 75mg 75 mg, Oral, DAILY, First dose on Thu04/14/22 at 0900, Until Discontinu ed, Routine [facility] pantoprazol e (PROTONIX) EC tablet 40 mg 04-14 14:00: 00 Yes 40mg 40 mg, Oral, DAILY, First dose on Thu04/14/22 at 0900, Until Discontinu ed, Routine [facility] atorvastati n (LIPITOR) tablet 40 mg 04-14 02:00: 00 Yes 40mg 40 mg, Oral, QHS, First dose on Thu04/13/22 at 2100, Until Discontinu ed, Routine [facility] LORazepam (ATIVAN) tablet 1 mg 04-14 01:30: 00 04-14 01:45 :00 No 1mg 1 mg, Oral, ONCE, 1 dose, On Thu04/13/22 at 2030, Routine [facility] methocarbam oL (ROBAXIN) tablet 500 mg 04-14 01:00: 00 Yes 500mg 500 mg, Oral, QID, First dose on Thu04/13/22 at 2000, Until Discontinu ed, Routine [facility] heparin (porcine) injection 5,000 Units 04-14 01:00: 00 Yes 5000U 5,000 Units, Subcutaneo us, Q12H, First dose on Thu04/13/22 at 2000, Until Discontinu ed, Routine [facility] acetaminoph en (TYLENOL) tablet 650 mg 04-14 00:23: 25 04-14 21:29 :42 No 650mg 650 mg, Oral, Q6HPRN, Starting on Thu04/13/22 at 1923, Until Thu04/14/22 at 1629, Routine, Pain (scale 1-3), Pain (scale 4-6), Temp > 38.5 C, Temp > 37.5 C [facility] lidocaine (LIDODERM) 5 % (700 mg/patch) patch 1 Patch 04-14 00:22: 00 04-14 13:51 :00 No 1{patch } 1 Patch, Topical, Administer over 12 Hours, ONCE, 1 dose, On Thu04/13/22 at 1930, Routine [facility] FENTanyl PF (SUBLIMAZE (PF)) injection 50 mcg 04-13 20:30: 00 04-13 19:22 :00 No 50ug 50 mcg, Slow IV Push, ONCE, 1 dose, On Thu04/13/22 at 1530, Routine [facility] aspirin chewable tablet 650 mg 04-13 20:15: 00 04-13 20:15 :00 No 650mg 650 mg, Oral, ONCE, 1 dose, On Thu04/13/22 at 1515, Routine [facility] clopidogreL (PLAVIX) 300 mg tablet 300 mg 04-13 20:00: 00 04-13 19:15 :00 No 300mg 300 mg, Oral, ONCE, 1 dose, On Thu04/13/22 at 1500, Routine [facility] ondansetron (ZOFRAN (PF)) injection 4 mg 04-13 19:30: 00 04-13 19:22 :00 No 4mg 4 mg, Slow IV Push, ONCE, 1 dose, On 04/13/22 at 1430, [facility] iopamidol (ISOVUE 370-500 mL) injection 100 mL 04-13 18:31: 00 04-13 18:32 :00 No [id number] 100mL 100 mL, Intravenou s, ONCE, 1 dose, On [place] 04/13/22 at 1345, Routine [facility] NaCl 0.9% (NS) injection 5 mL 04-13 18:14: 11 Yes 5mL 5 mL, Slow IV Push, PRN - SEE INSTRUCTIO NS, Starting on [place] 04/13/22 at 1314, Until Discontinu ed, 10 mL [facility] aspirin chewable tablet 324 mg 11-24 14:00: 00 Yes 324mg 324 mg, Oral, DAILY, First dose on [place] 11/24/21 at 0900, Until Discontinu ed, Routine [facility] metoclopram iker HCl (REGLAN) injection [...] dose, On 11/23/21 at 1630, MICHAEL [facility] LORazepam (ATIVAN) injection 4 mg 11-23 21:30: 00 11-23 20:23 :00 No 4mg 4 mg, Slow IV Push, ONCE, 1 dose, On 11/23/21 at 1630, STAT [facility] levETIRAcet am (KEPPRA) in NACL (ISO-OS) 1,500 mg/100 mL RTU 11-23 21:30: 00 11-23 20:47 :00 No 1500mg 1,500 mg, IV Piggyback, ONCE, 1 dose, On 11/23/21 at 1630, Administer over 15 Minutes, 100 mL [facility] Dose Unknown 0 4-08 00:00: [...] y
Durat ion of Therapy: 7 days [facility] morpHINE injection 4 mg 03-17 01:58: 00 03-17 02:13 :00 No 4mg 4 mg, Slow IV Push, ONCE, 1 dose, 03/16/21 at 2100, STAT [facility] ondansetron (ZOFRAN (PF)) injection 4 mg 03-17 01:58: 00 03-17 02:12 :00 No 4mg 4 mg, Slow IV Push, ONCE, 1 dose, 03/16/21 at 2100, [facility] ipratropium -albuteroL (DUONEB) 0.5 mg-3 mg(2.5 mg base)/3 mL nebulizer solution 3 mL 03-17 01:57: 00 03-17 02:15 :00 No 3mL 3 mL, Inhalation , ONCE, 1 dose, 03/16/21 at 2099, [facility] NaCl 0.9% (NS) IV infusion 1,000 mL 03-17 01:57: 00 03-17 03:07 :00 No 1000mL at 999 mL/hr, Intravenou s, ONCE, 1 dose, 03/16/21 at 2099, [facility] methylpredn isolone sod succ (SOLU-MEDRO L) injection 125 mg 03-17 01:57: 00 03-17 02:11 :00 No 125mg 125 mg, Slow IV Push, ONCE, 1 dose, 03/16/21 at 2099, STAT [facility] levoFLOXaci n 500 mg tablet 03-17 00:00: 00 03-24 04:59 :00 No [id number] 500mg Take 1 tablet by mouth daily for 6 days. [facility] predniSONE 10 mg tablet 03-17 00:00: 00 03-22 04:59 :00 No [id number] 30mg Take 3 tablets by mouth daily for 4 days. [facility] albuterol (VENTOLIN) inhaler 4 Puff 03-15 01:45: 00 03-15 00:44 :00 No [id number] 4{puff} 4 Puff, Inhalation , ONCE, 1 dose, [place] 03/14/21 at 2044, Routine [facility] dexamethaso ne (DECADRON) injection 10 mg 03-15 01:45: 00 03-15 00:45 :00 No [id number] 10mg 10 mg, Intramuscu lar, ONCE, 1 dose, [place] 03/14/21 at 2044, Routine [facility] albuterol 2.5 mg /3 mL (0.083 %) nebulizer solution 03-15 00:00: 00 01-09 00:00 :00 No [id number] 2.5mg Inhale 3 mL every 4 (four) hours as needed for Wheezing or Shortness of Breath. [facility] levETIRAcet am (KEPPRA) in NACL (ISO-OS) 1,000 mg/100 mL RTU 02-19 20:15: 00 02-19 19:30 :00 No 1000mg 1,000 mg, IV Infusion, ONCE, 1 dose, 02/19/21 at 1515, Administer over 15 Minutes, 100 mL [facility] levetiracet am (KEPPRA ORAL) 02-19 19:45: 33 Yes Take by mouth. [facility] LISINOPRIL- HYDROCHLORO THIAZIDE ORAL 02-19 19:41: 15 02-19 00:00 :00 No Take by mouth. [facility] dicyclomine (BENTYL) injection 20 mg 02-19 19:15: 00 02-19 19:04 :00 No 20mg 20 mg, Intramuscu lar, ONCE, 1 dose, 02/19/21 at 1415, Routine [facility] proMETHazin e (PHENERGAN) 25 mg in NaCl 0.9% (NS) 50 mL piggyback 02-19 19:15: 00 02-19 19:03 :00 No 25mg 25 mg, IV Piggyback, ONCE, 1 dose, 02/19/21 at 1415, 50 mL [facility] morpHINE injection 4 mg 02-19 17:15: 00 02-19 17:05 :00 No 4mg 4 mg, Slow IV Push, ONCE, 1 dose, 02/19/21 at 1215, STAT [facility] NaCl 0.9% (NS) bolus infusion 1,000 mL 02-19 17:15: 00 02-19 19:04 :00 No 1000mL at 999 mL/hr, 1,000 mL, IV Infusion, ONCE, 1 dose, Thu02/19/21 at 1215, STAT [facility] ondansetron (ZOFRAN (PF)) injection 4 mg 02-19 17:00: 00 02-19 15:59 :00 No 4mg 4 mg, Slow IV Push, ONCE, 1 dose, Thu02/19/21 at 1200, MICHAEL [facility] iopamidol (ISOVUE 370-500 mL) injection 100 mL 02-19 16:35: 00 02-19 16:45 :00 No [id number] 100mL 100 mL, Intravenou s, ONCE, 1 dose, Thu02/19/21 at 1145, Routine [facility] levetiracet am (KEPPRA ORAL) 02-19 14:45: 33 Yes Take by mouth. [facility] dicyclomine 20 mg tablet 02-19 00:00: 00 01-09 00:00 :00 No [id number] 20mg Take 1 tablet by mouth 4 (four) times daily as needed for Abdominal pain. [facility] proMETHazin e 25 mg tablet 02-19 00:00: 00 11-27 00:00 :00 No [id number] 25mg Take 1 tablet by mouth every 6 (six) hours as needed for Nausea and Vomiting (N/V). [facility] ZONISAMIDE 100 mg capsule 11-15 00:00: 00 Yes TAKE 1 CAPSULE BY MOUTH TWICE A DAY [facility] ondansetron (ZOFRAN) 4 mg tablet 02-09 20:05: 01 Yes 4mg Take 4 mg by mouth every 8 (eight) hours as needed. [facility] pantoprazol e (PROTONIX) 40 mg EC tablet 02-09 20:05: 01 Yes 40mg Take 40 mg by mouth daily. [facility] LISINOPRIL- HYDROCHLORO THIAZIDE ORAL 02-09 20:05: 01 Yes Take by mouth. [facility] lisinopril- hydrochloro thiazide 20-12.5 mg per tablet 02-09 20:03: 30 Yes 1{tbl} Take 1 tablet by mouth daily. [facility] omega-3 fatty acids-vitam in E (FISH OIL) 1,000 mg capsule 02-09 19:59: 52 Yes 1g Take 1 g by mouth daily. [facility] MULTIVITAMI N ORAL 02-09 19:58: 14 Yes 1{tbl} Take 1 Tab by mouth daily. [facility] loratadine (CLARITIN LIQUI-GEL) 10 mg capsule 02-09 19:58: 14 Yes Take by mouth daily. [facility] ondansetron (ZOFRAN) 4 mg tablet 02-09 15:05: 01 Yes 4mg Take 4 mg by mouth every 8 (eight) hours as needed. [facility] pantoprazol e (PROTONIX) 40 mg EC tablet 02-09 15:05: 01 Yes 40mg Take 40 mg by mouth daily. [facility] lisinopril- hydrochloro thiazide 20-12.5 mg per tablet 02-09 15:03: 30 Yes 1{tbl} Take 1 tablet by mouth daily. [facility] omega-3 fatty acids-vitam in E (FISH OIL) 1,000 mg capsule 02-09 14:59: 52 Yes 1g Take 1 g by mouth daily. [facility] MULTIVITAMI N ORAL 02-09 14:58: 14 Yes 1{tbl} Take 1 Tab by mouth daily. [facility] loratadine (CLARITIN LIQUI-GEL) 10 mg capsule 02-09 14:58: 14 Yes Take by mouth daily. [facility] proMETHazin e (PHENERGAN) 25 mg tablet 11-20 00:00: 00 Yes 25mg Take 1 tablet by mouth every 6 (six) hours as needed for Nausea and Vomiting (N/V). [facility] carvedilol (COREG) 6.25 mg tablet 09-19 00:00: 00 12-02 00:00 :00 No 6.25mg Take 1 Tab by mouth 2 (two) times daily with meals. [facility] amLODIPine (NORVASC) 10 mg tablet 09-19 00:00: 00 12-02 00:00 :00 No 10mg Take 1 Tab by mouth daily. [facility] lisinopril (PRINIVIL,Z ESTRIL) 40 mg tablet 09-19 00:00: 00 11-27 00:00 :00 No 40mg Take 1 Tab by mouth daily. [facility] Immunizations Ordered Immunization Name Filled Immunization Name Date Status Comments Source SARS-COV-2 COVID-19 PFIZER BA-SUCROSE VACCINE (ROSE TOP) 2022-02-19 00:00:00 [facility] SARS-COV-2 COVID-19 PFIZER BA-SUCROSE VACCINE (ROSE TOP) 2022-02-19 00:00:00 Completed [facility] SARS-COV-2 COVID-19 PFIZER BA-SUCROSE VACCINE (ROSE TOP) 2022-02-19 00:00:00 Completed [facility] SARS-COV-2 COVID-19 PFIZER BA-SUCROSE VACCINE (ROSE TOP) 2022-02-19 00:00:00 Completed [facility] SARS-COV-2 COVID-19 PFIZER BA-SUCROSE VACCINE (ROSE TOP) 2022-02-19 00:00:00 Completed [facility] SARS-COV-2 COVID-19 PFIZER BA-SUCROSE VACCINE (ROSE TOP) 2022-02-19 00:00:00 Completed [facility] SARS-COV-2 COVID-19 PFIZER BA-SUCROSE VACCINE (ROSE TOP) 2022-02-19 00:00:00 Completed [facility] SARS-COV-2 COVID-19 PFIZER BA-SUCROSE VACCINE (ROSE TOP) 2022-02-19 00:00:00 Completed [facility] SARS-COV-2 COVID-19 PFIZER BA-SUCROSE VACCINE (ROSE TOP) 2022-02-19 00:00:00 Completed [facility] SARS-COV-2 COVID-19 PFIZER BA-SUCROSE VACCINE (ROSE TOP) 2022-02-19 00:00:00 Completed [facility] SARS-COV-2 COVID-19 PFIZER VACCINE 2021-05-24 00:00:00 Completed SARS-COV-2 COVID-19 PFIZER VACCINE 2021-05-24 00:00:00 Completed [facility] SARS-COV-2 COVID-19 PFIZER VACCINE 2021-05-24 00:00:00 Completed [facility] SARS-COV-2 COVID-19 PFIZER VACCINE 2021-05-24 00:00:00 Completed [facility] SARS-COV-2 COVID-19 PFIZER VACCINE 2021-05-24 00:00:00 Completed [facility] SARS-COV-2 COVID-19 PFIZER VACCINE 2021-05-24 00:00:00 Completed [facility] SARS-COV-2 COVID-19 PFIZER VACCINE 2021-05-24 00:00:00 Completed [facility] SARS-COV-2 COVID-19 PFIZER VACCINE 2021-05-24 00:00:00 Completed [facility] SARS-COV-2 COVID-19 PFIZER VACCINE 2021-05-24 00:00:00 Completed [facility] SARS-COV-2 COVID-19 PFIZER VACCINE 2021-05-24 00:00:00 Completed [facility] SARS-COV-2 COVID-19 PFIZER VACCINE 2021-05-24 00:00:00 Completed [facility] SARS-COV-2 COVID-19 PFIZER VACCINE 2021-05-24 00:00:00 Completed [facility] SARS-COV-2 COVID-19 PFIZER VACCINE 2021-05-03 00:00:00 Completed [facility] SARS-COV-2 COVID-19 PFIZER VACCINE 2021-05-03 00:00:00 Completed [facility] SARS-COV-2 COVID-19 PFIZER VACCINE 2021-05-03 00:00:00 Completed [facility] SARS-COV-2 COVID-19 PFIZER VACCINE 2021-05-03 00:00:00 Completed [facility] SARS-COV-2 COVID-19 PFIZER VACCINE 2021-05-03 00:00:00 Completed [facility] SARS-COV-2 COVID-19 PFIZER VACCINE 2021-05-03 00:00:00 Completed [facility] SARS-COV-2 COVID-19 PFIZER VACCINE 2021-05-03 00:00:00 Completed [facility] SARS-COV-2 COVID-19 PFIZER VACCINE 2021-05-03 00:00:00 Completed [facility] SARS-COV-2 COVID-19 PFIZER VACCINE 2021-05-03 00:00:00 Completed [facility] SARS-COV-2 COVID-19 PFIZER VACCINE 2021-05-03 00:00:00 Completed [facility] SARS-COV-2 COVID-19 PFIZER VACCINE 2021-05-03 00:00:00 Completed [facility] SARS-COV-2 COVID-19 PFIZER VACCINE 2021-05-03 00:00:00 Completed [facility] SARS-COV-2 COVID-19 PFIZER VACCINE 2021-05-03 00:00:00 Completed [facility] SARS-COV-2 COVID-19 PFIZER VACCINE Unknown Completed [facility] SARS-COV-2 COVID-19 PFIZER BA-SUCROSE VACCINE (ROSE TOP) Unknown Completed [facility] SARS-COV-2 COVID-19 PFIZER BA-SUCROSE VACCINE (ROSE TOP) Unknown Completed [facility] SARS-COV-2 COVID-19 PFIZER VACCINE Unknown Completed [facility] SARS-COV-2 COVID-19 PFIZER VACCINE Unknown Completed [facility] SARS-COV-2 COVID-19 PFIZER BA-SUCROSE VACCINE (ROSE TOP) Unknown Completed [facility] SARS-COV-2 COVID-19 PFIZER VACCINE Unknown Completed [facility] SARS-COV-2 COVID-19 PFIZER BA-SUCROSE VACCINE (ROSE TOP) Unknown Completed [facility] SARS-COV-2 COVID-19 PFIZER VACCINE Unknown Completed [facility] SARS-COV-2 COVID-19 PFIZER BA-SUCROSE VACCINE (ROSE TOP) Unknown Completed [facility] SARS-COV-2 COVID-19 PFIZER VACCINE Unknown Completed [facility] SARS-COV-2 COVID-19 PFIZER BA-SUCROSE VACCINE (ROSE TOP) Unknown Completed [facility] SARS-COV-2 COVID-19 PFIZER VACCINE Unknown Completed [facility] SARS-COV-2 COVID-19 PFIZER BA-SUCROSE VACCINE (ROSE TOP) Unknown Completed [facility] SARS-COV-2 COVID-19 PFIZER VACCINE Unknown Completed [facility] SARS-COV-2 COVID-19 PFIZER BA-SUCROSE VACCINE (ROSE TOP) Unknown Completed [facility] SARS-COV-2 COVID-19 PFIZER VACCINE Unknown Completed [facility] SARS-COV-2 COVID-19 PFIZER BA-SUCROSE VACCINE (ROSE TOP) Unknown Completed [facility] SARS-COV-2 COVID-19 PFIZER VACCINE Unknown Completed [facility] SARS-COV-2 COVID-19 PFIZER BA-SUCROSE VACCINE (ROSE TOP) Unknown Completed [facility] SARS-COV-2 COVID-19 PFIZER VACCINE Unknown Completed [facility] SARS-COV-2 COVID-19 PFIZER BA-SUCROSE VACCINE (ROSE TOP) Unknown Completed [facility] SARS-COV-2 COVID-19 PFIZER VACCINE Unknown Completed [facility] SARS-COV-2 COVID-19 PFIZER BA-SUCROSE VACCINE (ROSE TOP) Unknown Completed [facility] SARS-COV-2 COVID-19 PFIZER VACCINE Unknown Completed [facility] SARS-COV-2 COVID-19 PFIZER BA-SUCROSE VACCINE (ROSE TOP) Unknown Completed [facility] SARS-COV-2 COVID-19 PFIZER VACCINE Unknown Completed [facility] SARS-COV-2 COVID-19 PFIZER BA-SUCROSE VACCINE (ROSE TOP) Unknown Completed [facility] Vital Signs Vital Name Observation Time Observation Value Comments S ource Systolic blood pressure 2024-10-08 15:35:00 128 mm[Hg] [facility] Diastolic blood pressure 2024-10-08 15:35:00 88 mm[Hg] [facility] Heart rate 2024-10-08 15:35:00 97 /min [facility] Respiratory rate 2024-10-08 15:35:00 18 /min [facility] Oxygen saturation in Arterial blood by Pulse oximetry 2024-10-08 15:35:00 94 /min [facility] Body temperature 2024-10-08 14:51:00 36.17 Radha [facility] Systolic blood pressure 2024-10-08 15:35:00 128 mm[Hg] [facility] Diastolic blood pressure 2024-10-08 15:35:00 88 mm[Hg] [facility] Epic Heart rate 2024-10-08 15:35:00 97 /min [facility] Epic Respiratory rate 2024-10-08 15:35:00 18 /min [facility] O[facility] saturation in Arterial blood by Pulse oximetry 2024-10-08 15:35:00 94 /min [facility] Epic Body temperature 2024-10-08 14:51:00 36.17 [facility] [place] Epic Systolic blood pressure 2024-08-10 15:08:00 164 mm[Hg] [facility] Epic Diastolic blood pressure 2024-08-10 15:08:00 87 mm[Hg] [facility] Epic Heart rate 2024-08-10 15:08:00 90 /min [facility] [place] Epic Body temperature 2024-08-10 15:08:00 36.44 Rad[facility] Respiratory rate 2024-08-10 15:08:00 20 /min [facility] Oxygen saturation in Arterial blood by Pulse oximetry 2024-08-10 15:08:00 97 /min [facility] Body height 2024-08-10 05:20:00 160 cm Jeffrey paulal [facility] Epic Body weight 2024-08-10 05:20:00 81.647 kg Jeffrey rial [facility] Epic BMI 2024-08-10 05:20:00 31.89 kg/m2 Jeffrey rial [facility] Systolic blood pressure 2024-08-10 15:08:00 164 mm[Hg] [facility] Epic Diastolic blood pressure 2024-08-10 15:08:00 87 mm[Hg] [facility] Epic Heart rate 2024-08-10 15:08:00 90 /min [facility] Body temperature 2024-08-10 15:08:00 36.44 Radha [facility] Epic Respiratory rate 2024-08-10 15:08:00 20 /min [facility] Epic Oxygen saturation in Arterial blood by Pulse oximetry 2024-08-10 15:08:00 97 /min [facility] Body height 2024-08-10 05:20:00 160 cm Jeffrey rial [place] Epic Body weight 2024-08-10 05:20:00 81.647 kg Jeffrey Bolaños [facility] BMI 2024-08-10 05:20:00 31.89 kg/m2 Jeffrey Bolaños [facility] Systolic blood pressure 2024-04-03 05:10:00 111 mm[Hg] [facility] Diastolic blood pressure 2024-04-03 05:10:00 65 mm[Hg] [facility] Heart rate 2024-04-03 05:10:00 70 /min Un[facility] Respiratory rate 2024-04-03 05:10:00 23 /min [facility] Oxygen saturation in Arterial blood by Pulse oximetry 2024-04-03 05:10:00 97 /min [facility] Body temperature 2024-04-03 01:49:00 37.33 Radha [facility] Body height 2024-04-03 01:49:00 157.5 cm [facility] Body weight 2024-04-03 01:49:00 90.719 kg [facility] BMI 2024-04-03 01:49:00 36.58 kg/m2 [facility] Systolic blood pressure 2024-01-13 04:50:00 103 mm[Hg] [facility] Diastolic blood pressure 2024-01-13 04:50:00 72 mm[Hg] [facility] Heart rate 2024-01-13 04:50:00 85 /min Un[facility] Body temperature 2024-01-13 04:50:00 36.67 Radha [facility] Oxygen saturation in Arterial blood by Pulse oximetry 2024-01-13 04:50:00 99 /min [facility] Respiratory rate 2024-01-13 04:40:00 19 /min [facility] Body height 2024-01-13 03:06:00 160 cm [facility] Body weight 2024-01-13 03:06:00 81.194 kg [facility] BMI 2024-01-13 03:06:00 31.71 kg/m2 [facility] Systolic blood pressure 2024-01-10 20:00:00 95 mm[Hg] [facility] Diastolic blood pressure 2024-01-10 20:00:00 71 mm[Hg] [facility] Heart rate 2024-01-10 20:00:00 73 /min [facility] Body temperature 2024-01-10 20:00:00 36.83 Radha [facility] Respiratory rate 2024-01-10 20:00:00 23 /min [facility] Oxygen saturation in Arterial blood by Pulse oximetry 2024-01-10 20:00:00 94 /min [facility] Body weight 2024-01-10 09:00:00 81.466 kg [facility] BMI 2024-01-10 09:00:00 32.85 kg/m2 [facility] Body height 2024-01-09 21:10:00 157.5 cm [facility] Heart rate 2023-12-15 12:35:00 73 /min [facility] Respiratory rate 2023-12-15 12:35:00 18 /min [facility] Oxygen saturation in Arterial blood by Pulse oximetry 2023-12-15 12:35:00 95 /min [facility] Systolic blood pressure 2023-12-15 12:20:00 105 mm[Hg] [facility] Diastolic blood pressure 2023-12-15 12:20:00 64 mm[Hg] [facility] Body temperature 2023-12-15 12:20:00 36.11 Rad[facility] Body weight 2023-12-15 08:12:00 78.472 kg [facility] BMI 2023-12-15 08:12:00 30.65 kg/m2 [facility] Body height 2023-12-15 02:10:00 160 cm [facility] Systolic blood pressure 2023-12-03 23:00:00 106 mm[Hg] [facility] Diastolic blood pressure 2023-12-03 23:00:00 75 mm[Hg] [facility] Heart rate 2023-12-03 23:00:00 108 /min [facility] Body temperature 2023-12-03 23:00:00 36.61 Radha [facility] Respiratory rate 2023-12-03 23:00:00 17 /min [facility] Oxygen saturation in Arterial blood by Pulse oximetry 2023-12-03 23:00:00 96 /min [facility] Body height 2023-12-03 19:39:00 160 cm [facility] Body weight 2023-12-03 19:39:00 90.7 kg [facility] BMI 2023-12-03 19:39:00 35.43 kg/m2 [facility] Systolic blood pressure 2023-11-28 16:39:00 91 mm[Hg] [facility] Diastolic blood pressure 2023-11-28 16:39:00 65 mm[Hg] [facility] Heart rate 2023-11-28 16:39:00 105 /min [facility] Body temperature 2023-11-28 16:39:00 36.28 Radha [facility] Respiratory rate 2023-11-28 16:39:00 20 /min [facility] Oxygen saturation in Arterial blood by Pulse oximetry 2023-11-28 16:39:00 97 /min [facility] Body weight 2023-11-28 01:00:00 84 kg [facility] BMI 2023-11-28 01:00:00 32.81 kg/m2 [facility] Body height 2023-11-22 07:10:00 160 cm [facility] Systolic blood pressure 2023-11-23 19:43:25 123 mm[Hg] [facility] Diastolic blood pressure 2023-11-23 19:43:25 79 mm[Hg] [facility] Respiratory rate 2023-11-23 19:43:25 17 /min [facility] Oxygen saturation in Arterial blood by Pulse oximetry 2023-11-23 19:43:25 97 /min [facility] Heart rate 2023-11-23 19:20:46 122 /min [facility] Body temperature 2023-11-23 15:00:00 36.22 Radha [facility] Body height 2023-11-22 07:10:00 160 cm [facility] Body weight 2023-11-22 07:10:00 94.484 kg [facility] BMI 2023-11-22 07:10:00 35.16 kg/m2 [facility] Systolic blood pressure 2023-09-11 17:27:00 [...] Systolic blood pressure 2023-08-12 21:00:00 130 mm[Hg] [facility] Diastolic blood pressure 2023-08-12 21:00:00 85 mm[Hg] [facility] Heart rate 2023-08-12 21:00:00 106 /min [facility] Respiratory rate 2023-08-12 21:00:00 14 /min [facility] Oxygen saturation in Arterial blood by Pulse oximetry 2023-08-12 21:00:00 95 /min [facility] Body temperature 2023-08-12 20:34:54 37.22 Radha [facility] Body height 2023-08-12 19:47:00 157.5 cm [facility] Body weight 2023-08-12 19:47:00 81.647 kg [facility] BMI 2023-08-12 19:47:00 32.92 kg/m2 [facility] WEIGHT 2023-06-16 05:26:00 86.047 kg [...] Systolic blood pressure 2022-12-11 20:00:00 142 mm[Hg] [facility] Diastolic blood pressure 2022-12-11 20:00:00 90 mm[Hg] [facility] Respiratory rate 2022-12-11 20:00:00 24 /min [facility] Heart rate 2022-12-11 18:00:00 101 /min [facility] Oxygen saturation in Arterial blood by Pulse oximetry 2022-12-11 18:00:00 93 /min [facility] BMI 2022-12-11 13:55:00 35.43 kg/m2 [facility] Body temperature 2022-12-11 13:55:00 37.22 Radha [facility] Body weight 2022-12-11 13:55:00 90.719 kg [facility] Systolic blood pressure 2022-11-18 05:34:00 152 mm[Hg] [facility] Diastolic blood pressure 2022-11-18 05:34:00 98 mm[Hg] [facility] Heart rate 2022-11-18 05:34:00 88 /min [facility] Respiratory rate 2022-11-18 05:34:00 18 /min [facility] Oxygen saturation in Arterial blood by Pulse oximetry 2022-11-18 05:34:00 97 /min [facility] Body temperature 2022-11-17 22:28:00 37.06 Radha [facility] Body height 2022-11-17 22:28:00 160 cm [facility] Body weight 2022-11-17 22:28:00 99.791 kg [facility] BMI 2022-11-17 22:28:00 38.97 kg/m2 [facility] Heart rate 2022-08-02 02:02:00 108 /min [facility] Respiratory rate 2022-08-02 02:02:00 28 /min [facility] Oxygen saturation in Arterial blood by Pulse oximetry 2022-08-02 02:02:00 97 /min [facility] Body temperature 2022-08-02 01:00:00 36.44 Radha [facility] Systolic blood pressure 2022-08-01 23:29:00 145 mm[Hg] [facility] Diastolic blood pressure 2022-08-01 23:29:00 103 mm[Hg] [facility] Body weight 2022-08-01 09:16:00 97.977 kg [facility] BMI 2022-08-01 09:16:00 38.26 kg/m2 [facility] Body height 2022-07-31 21:54:00 160 cm [facility] Systolic blood pressure 2022-05-08 16:40:00 146 mm[Hg] [facility] Diastolic blood pressure 2022-05-08 16:40:00 96 mm[Hg] [facility] Heart rate 2022-05-08 16:40:00 112 /min [facility] Body temperature 2022-05-08 16:40:00 36.78 Radha [facility] Respiratory rate 2022-05-08 16:40:00 18 /min [facility] Oxygen saturation in Arterial blood by Pulse oximetry 2022-05-08 16:40:00 94 /min [facility] Body height 2022-05-05 23:44:00 160 cm [facility] Body weight 2022-05-05 23:37:00 81.647 kg [facility] BMI 2022-05-05 23:37:00 31.89 kg/m2 [facility] Systolic blood pressure 2022-04-15 18:52:00 104 mm[Hg] [facility] Diastolic blood pressure 2022-04-15 18:52:00 82 mm[Hg] [facility] Heart rate 2022-04-15 18:52:00 114 /min [facility] Oxygen saturation in Arterial blood by Pulse oximetry 2022-04-15 18:52:00 98 /min [facility] Body temperature 2022-04-15 16:14:00 36.28 Radha [facility] Respiratory rate 2022-04-15 16:14:00 17 /min [facility] Body height 2022-04-13 21:08:00 160 cm [facility] Body weight 2022-04-13 21:08:00 91.173 kg [facility] BMI 2022-04-13 21:08:00 35.61 kg/m2 [facility] Systolic blood pressure 2021-11-23 21:30:00 132 mm[Hg] [facility] Diastolic blood pressure 2021-11-23 21:30:00 76 mm[Hg] [facility] Heart rate 2021-11-23 21:30:00 95 /min Unive [facility] Respiratory rate 2021-11-23 21:30:00 13 /min [facility] Oxygen saturation in Arterial blood by Pulse oximetry 2021-11-23 21:30:00 97 /min [facility] Body temperature 2021-11-23 20:15:00 37.56 Radha [facility] Systolic blood pressure 2021-03-17 03:00:00 117 mm[Hg] [facility] Diastolic blood pressure 2021-03-17 03:00:00 76 mm[Hg] [facility] Heart rate 2021-03-17 03:00:00 104 /min Unive [facility] Respiratory rate 2021-03-17 03:00:00 28 /min [facility] Oxygen saturation in Arterial blood by Pulse oximetry 2021-03-17 03:00:00 96 /min [facility] Body temperature 2021-03-17 00:39:00 37.11 Radha [facility] Body height 2021-03-17 00:39:00 160 cm [facility] Body weight 2021-03-17 00:39:00 58.968 kg [facility] BMI 2021-03-17 00:39:00 23.03 kg/m2 [facility] Systolic blood pressure 2021-03-15 00:14:00 149 mm[Hg] [facility] Diastolic blood pressure 2021-03-15 00:14:00 78 mm[Hg] [facility] Heart rate 2021-03-15 00:14:00 100 /min Un[facility] Body temperature 2021-03-15 00:14:00 37.33 Radha [facility] Respiratory rate 2021-03-15 00:14:00 24 /min [facility] Body height 2021-03-15 00:14:00 160 cm [facility] Body weight 2021-03-15 00:14:00 58.968 kg [facility] BMI 2021-03-15 00:14:00 23.03 kg/m2 [facility] Oxygen saturation in Arterial blood by Pulse oximetry 2021-03-15 00:14:00 98 /min [facility] Systolic blood pressure 2021-02-19 18:00:00 131 mm[Hg] [facility] Diastolic blood pressure 2021-02-19 18:00:00 80 mm[Hg] [facility] Heart rate 2021-02-19 18:00:00 83 /min [facility] 2021-02-19 18:00:00 18 /min [facility] Oxygen saturation in Arterial blood by Pulse oximetry 2021-02-19 18:00:00 100 /min [facility] Body temperature 2021-02-19 15:47:00 37 Radha [facility] Body height 2021-02-19 15:47:00 160 cm [facility] Body weight 2021-02-19 15:47:00 58.968 kg [facility] BMI 2021-02-19 15:47:00 23.03 kg/m2 [facility] Heart rate 2023-09-08 08:54:00 118 /min [facility] Respiratory rate 2023-09-08 08:54:00 21 /min [facility] Oxygen saturation in Arterial blood by Pulse oximetry 2023-09-08 08:54:00 100 /min [facility] Systolic blood pressure 2023-09-08 08:32:00 110 mm[Hg] [facility] Diastolic blood pressure 2023-09-08 08:32:00 77 mm[Hg] [facility] Body temperature 2023-09-08 08:32:00 36.06 Radha [facility] Body height 2023-09-04 00:58:00 157.5 cm [facility] Body weight 2023-09-04 00:58:00 80 kg [facility] BMI 2023-09-04 00:58:00 32.26 kg/m2 [facility] Heart rate 2023-06-16 17:00:00 108 /min [facility] Systolic blood pressure 2023-06-16 15:31:00 101 mm[Hg] [facility] Diastolic blood pressure 2023-06-16 15:31:00 81 mm[Hg] [facility] Body temperature 2023-06-16 15:31:00 36.61 Radha [facility] Respiratory rate 2023-06-16 15:31:00 18 /min [facility] Oxygen saturation in Arterial blood by Pulse oximetry 2023-06-16 15:31:00 94 /min [facility] Body weight 2023-06-16 05:26:00 86.047 kg [facility] BMI 2023-06-16 05:26:00 33.60 kg/m2 [facility] Body height 2023-06-13 04:00:00 160 cm [facility] Systolic blood pressure 2023-06-04 13:02:00 93 mm[Hg] [facility] Diastolic blood pressure 2023-06-04 13:02:00 57 mm[Hg] [facility] Heart rate 2023-06-04 13:02:00 101 /min [facility] Respiratory rate 2023-06-04 13:02:00 22 /min [facility] Oxygen saturation in Arterial blood by Pulse oximetry 2023-06-04 13:02:00 95 /min room air [facility] Body temperature 2023-06-04 11:46:00 35.28 Radha [facility] Systolic blood pressure 2023-05-28 16:00:00 154 mm[Hg] [facility] Diastolic blood pressure 2023-05-28 16:00:00 82 mm[Hg] [facility] Heart rate 2023-05-28 16:00:00 89 /min [facility] Body temperature 2023-05-28 16:00:00 36.67 Radha [facility] Respiratory rate 2023-05-28 16:00:00 16 /min [facility] Oxygen saturation in Arterial blood by Pulse oximetry 2023-05-28 16:00:00 97 /min [facility] Body height 2023-05-28 07:00:00 157.5 cm [facility] Body weight 2023-05-28 07:00:00 87.544 kg [facility] BMI 2023-05-28 07:00:00 35.30 kg/m2 [facility] Body height 2023-05-26 09:12:00 157.5 cm [facility] Body weight 2023-05-26 09:12:00 87.091 kg [facility] BMI 2023-05-26 09:12:00 35.12 kg/m2 [facility] Respiratory rate 2023-04-02 16:35:00 18 /min [facility] Oxygen saturation in Arterial blood by Pulse oximetry 2023-04-02 16:35:00 98 /min [facility] Systolic blood pressure 2023-04-02 12:00:00 147 mm[Hg] [facility] Diastolic blood pressure 2023-04-02 12:00:00 97 mm[Hg] [facility] Heart rate 2023-04-02 12:00:00 106 /min [facility] Body temperature 2023-04-02 12:00:00 36.28 Radha [facility] Body height 2023-03-30 02:14:00 157.5 cm [facility] Body weight 2023-03-30 02:14:00 92.08 kg [facility] BMI 2023-03-30 02:14:00 37.13 kg/m2 [facility] Respiratory rate 2022-08-03 14:40:00 18 /min [facility] Systolic blood pressure 2022-08-03 12:13:00 112 mm[Hg] [facility] Diastolic blood pressure 2022-08-03 12:13:00 77 mm[Hg] [facility] Heart rate 2022-08-03 12:13:00 115 /min [facility] Oxygen saturation in Arterial blood by Pulse oximetry 2022-08-03 12:13:00 93 /min [facility] Body temperature 2022-08-03 12:00:00 36.83 Radha [facility] Body height 2022-08-02 21:52:00 160.2 cm [facility] Body weight 2022-08-02 21:52:00 95 kg [facility] BMI 2022-08-02 21:52:00 37.02 kg/m2 [facility] BP Systolic 2022-07-24 13:31:00 [...] / Time Performed Performing Clinician Source CT BRAIN WO IV CONTRAST 2024-10-08 15:35:00 Laney, Dustin Sunil [facility] BASIC METABOLIC PANEL 2024-10-08 15:15:00 Laney, Dustin Tobar [facility] HEPATIC FUNCTION PANEL 2024-10-08 15:15:00 Laney, Dustin Tobar [facility] VALPROIC ACID LEVEL 2024-10-08 15:15:00 Laney, Dustin Tobar [facility] BLOOD GAS, VENOUS 2024-10-08 15:15:00 Laney, Dustin Tobar [facility] MAGNESIUM LEVEL 2024-10-08 15:15:00 Laney, Dustin Tobar [facility] PHOSPHORUS LEVEL 2024-10-08 15:15:00 Laney, Dustin [facility] COMPLETE BLOOD COUNT W/DIFF AND PLATELET 2024-10-08 15:15:00 Laney, Dustin Tobar [facility] COMPLETE BLOOD COUNT 2024-10-08 15:15:00 Laney, Dustin Tobar [facility] AUTOMATED DIFFERENTIAL 2024-10-08 15:15:00 Laney, Dustin Tobar [facility] UA with culture if indicated 2024-10-08 00:00:00 [facility] ECG 12 lead 2024-10-08 00:00:00 [facility] [address] brain wo IV contrast 2024-08-24 00:00:00 [facility] XR FEMUR 2+ VW RIGHT 2024-08-10 10:28:08 Dipak Colindres [facility] XR HIP 2-3 VIEWS RIGHT 2024-08-10 10:27:46 Dipak Colindres [facility] UA WITH CULTURE IF INDICATED 2024-08-10 09:51:00 Dipak Colindres [facility] VALPROIC ACID LEVEL 2024-08-10 08:31:00 Prakash Eckert [facility] XR CHEST 1 VIEW 2024-08-10 07:18:37 Jens Dipak Dixon [facility] XR PELVIS 1-2 VIEWS 2024-08-10 07:18:15 Jens Dipak Dixon [facility] CT BRAIN WO IV CONTRAST 2024-08-10 06:06:00 Jens Dipak Dixon [facility] CT CERVICAL SPINE WO IV CONTRAST 2024-08-10 06:06:00 Jens Dipak Dixon [facility] BASIC METABOLIC PANEL 2024-08-10 05:51:00 Jens Dipak Dixon [facility] HEPATIC FUNCTION PANEL 2024-08-10 05:51:00 Jens Dipak Dixon [facility] MAGNESIUM LEVEL 2024-08-10 05:51:00 Jens Dipak Dixon [facility] PHOSPHORUS LEVEL 2024-08-10 05:51:00 Jens Dipak Dixon [facility] TYPE AND SCREEN 2024-08-10 05:51:00 Jens Dipak Dixon [facility] COMPLETE BLOOD COUNT W/DIFF AND PLATELET 2024-08-10 05:51:00 Jens Dipak Mukesh [facility] THROMBOELASTOGRAPH RAPID 2024-08-10 05:51:00 Jens Dipak Dixon [facility] COMPLETE BLOOD COUNT 2024-08-10 05:51:00 Jens Dipak Dixon [facility] AUTOMATED DIFFERENTIAL 2024-08-10 05:51:00 Jens Dipak Dixon [facility] POC GLUCOSE UNSOLICITED RESULTS 2024-08-10 05:33:00 Brooklynn Paige [facility] ECG 12 lead (arrhythmia) 2024-08-10 00:00:00 [facility] Urine Culture 2024-08-10 00:00:00 [facility] LACTIC ACID WHOLE BLOOD 2024-04-03 01:59:00 Tammy Chrissy [facility] BASIC METABOLIC PANEL (NA, K , CL, CO2, GLUCOSE, BUN, CREATININE, CA) 2024-04-03 01:58:00 Tammy [facility] CBC WITH DIFF 2024-04-03 01:58:00 Tammy [facility] N-TERMINAL PRO-BNP 2024-04-03 01:58:00 Tammy [facility] EKG-12 LEAD 2024-01-13 04:42:14 Radha [facility] TROPONIN I 2024-01-13 03:20:00 Radha [facility] COMP. METABOLIC PANEL ([id number]) 2024-01-13 03:20:00 Radha [facility] CBC WITH DIFF 2024-01-13 03:20:00 Radha [facility] TRANSTHORACIC ECHO (TTE) LIMITED W/ DOPPLER, COLOR AND CONTRAST 2024-01-10 13:07:00 Darrick [facility] MAGNESIUM 2024-01-10 09:16:00 Darrick Fry [facility] TROPONIN I 2024-01-10 09:16:00 Darrick Fry [facility] BASIC METABOLIC PANEL (NA, K , CL, CO2, GLUCOSE, BUN, CREATININE, CA) 2024-01-10 09:16:00 Darrick Fry [facility] LIPID PANEL ([id number])(TOTAL CHOLESTEROL, TRIGLYCERIDES, HDL) 2024-01-10 09:16:00 Darrick Fry [facility] CBC WITH DIFF 2024-01-10 09:16:00 Darrick Fry [facility] PROTHROMBIN TIME / INR 2024-01-10 09:16:00 Darrick Fry [facility] ACTIVATED PARTIAL THRMPLAS DAVID 2024-01-10 09:16:00 Darrick Fry [facility] N-TERMINAL PRO-BNP 2024-01-10 09:16:00 Darrick Fry [facility] PHOSPHORUS 2024-01-10 04:58:00 Darrick Fry [facility] BLOOD CULTURE SCREEN 2024-01-10 02:39:00 Alfonso Alvarado [facility] BLOOD CULTURE SCREEN 2024-01-10 02:20:00 Alfonso Alvarado [facility] LACTIC ACID WHOLE BLOOD 2024-01-10 01:52:00 [address] [facility] CT CHEST PULMONARY ANGIOGRAM 2024-01-09 23:59:01 Abundio [facility] XR CHEST 1 VW 2024-01-09 21:49:00 Abundio [facility] TROPONIN I 2024-01-09 21:39:00 Abundio [facility] COMP. METABOLIC PANEL ([id number]) 2024-01-09 21:39:00 Abundio [facility] CBC WITH DIFF 2024-01-09 21:39:00 Susannaitz [facility] D-DIMER 2024-01-09 21:39:00 [facility] N-TERMINAL PRO-BNP 2024-01-09 21:39:00 Susannaitz [facility] HB ECG ROUTINE & RHYTHM STRIP 2024-01-09 21:13:02 Abundio [facility] POCT GLUCOSE (AUTOMATED) 2023-12-15 12:43:00 Reema [facility] MAGNESIUM 2023-12-15 10:26:00 Reema [facility] TROPONIN I 2023-12-15 10:26:00 Reema [facility] BASIC METABOLIC PANEL (NA, K , CL, CO2, GLUCOSE, BUN, CREATININE, CA) 2023-12-15 10:26:00 Reema [facility] CBC WITH DIFF 2023-12-15 10:26:00 Daria [facility] N-TERMINAL PRO-BNP 2023-12-15 10:26:00 Reema [facility] TROPONIN I 2023-12-15 03:21:00 Reema [facility] FREE T4 2023-12-15 03:21:00 Reema [facility] DIGOXIN 2023-12-15 03:21:00 Daria [facility] POCT GLUCOSE (AUTOMATED) 2023-12-15 00:56:00 Reema [facility] TROPONIN I 2023-12-14 21:05:00 Singer [facility] THYROID STIMULATING HORMONE 2023-12-14 21:05:00 [facility] 2023-12-14 21:05:00 Reema [facility] XR CHEST 1 VW 2023-12-14 19:25:00 Singer [facility] TROPONIN I 2023-12-14 19:19:00 Singer [facility] COMP. METABOLIC PANEL ([id number]) 2023-12-14 19:19:00 Singer [facility] CBC WITH DIFF 2023-12-14 19:19:00 Singer [facility] D-DIMER 2023-12-14 19:19[facility] 2023-12-14 19:19:00 Singer [facility] EKG-12 LEAD 2023-12-14 18:38:57 Reema [facility] POCT GLUCOSE (AUTOMATED) 2023-12-03 21:23:00 Connor Renee [facility] BASIC METABOLIC PANEL (NA, K , CL, CO2, GLUCOSE, BUN, CREATININE, CA) 2023-12-03 17:58:00 Mukesh [facility] POCT GLUCOSE (AUTOMATED) 2023-12-03 16:51:00 Connor Renee [facility] POCT GLUCOSE (AUTOMATED) 2023-12-03 13:00:00 Connor Renee [facility] MAGNESIUM 2023-12-03 09:21:00 Ginny [facility] HEPATIC FUNCTION PANEL ([id number]) (ALB,T.PRO,BILI T,BU/BC,ALT,AST,ALK PHOS) 2023-12-03 09:21:00 Ginny [facility] BASIC METABOLIC PANEL (NA, K , CL, CO2, GLUCOSE, BUN, CREATININE, CA) 2023-12-03 09:21:00 Ginny [facility] AC PANEL 21 + LACTIC ACID 2023-12-03 01:45:00 Mariaelena [facility] MRSA / MSSA SCREEN BY PCR, RED 2023-12-03 01:45:00 Mariaelena Gross [facility] CT CHEST PULMONARY ANGIOGRAM 2023-12-02 19:32:14 Connor Renee [facility] XR CHEST 1 VW 2023-12-02 19:04:00 Connor Renee [facility] BLOOD CULTURE SCREEN 2023-12-02 18:53:00 Connor Renee [facility] TROPONIN I 2023-12-02 18:53:00 Connor Renee [facility] COMP. METABOLIC PANEL ([id number]) 2023-12-02 18:53:00 Connor Renee [facility] CBC WITH DIFF 2023-12-02 18:53:00 Connor Renee [facility] RAPID INFLUENZA A/B 2023-12-02 18:53:00 Connor Renee [facility] N-TERMINAL PRO-BNP 2023-12-02 18:53:00 Connor Renee [facility] COVID-19 (ID NOW RAPID TESTING) 2023-12-02 18:53:00 Connor Renee [facility] BLOOD CULTURE SCREEN 2023-12-02 18:49:00 Connor Renee [facility] AC ABG + LACTIC ACID 2023-12-02 18:26:00 Connor Renee [facility] HB ECG ROUTINE & RHYTHM STRIP 2023-12-02 18:06:10 Connor Renee [facility] POCT GLUCOSE (AUTOMATED) 2023-11-28 16:40:00 Cr Fry [facility] PHOSPHORUS 2023-11-28 09:22:00 Tabor [facility] MAGNESIUM 2023-11-28 09:22:00 Leander [facility] COMP. METABOLIC PANEL ([id number]) 2023-11-28 09:22:00 Leander [facility] CBC WITH DIFF 2023-11-28 09:22:00 Leander [facility] N-TERMINAL PRO-BNP 2023-11-28 09:22:00 Torrey Bae[facility] POCT GLUCOSE (AUTOMATED) 2023-11-28 01:31:00 Lorenzo Ventura [facility] POCT GLUCOSE (AUTOMATED) 2023-11-27 21:45:00 Lorenzo Ventura [facility] POCT GLUCOSE (AUTOMATED) 2023-11-27 16:30:00 Lorenzo Hemrosalie [facility] POCT GLUCOSE (AUTOMATED) 2023-11-27 12:39:00 Lorenzo Ventura [facility] LACTIC ACID WHOLE BLOOD 2023-11-27 06:35:00 Leander [facility] MAGNESIUM 2023-11-27 06:34:00 Leander [facility] COMP. METABOLIC PANEL ([id number]) 2023-11-27 06:34:00 Leander [facility] URINE DRUG (IMMUNOASSAY) - COMPREHENSIVE DRUG SCREEN 2023-11-27 03:59:00 Leander [facility] POCT GLUCOSE (AUTOMATED) 2023-11-27 02:25:00 Lorenzo Ventura [facility] CT HEAD WO CONTRAST 2023-11-26 21:56:31 Leander [facility] MAGNESIUM 2023-11-26 21:32:00 Leander [facility] COMP. METABOLIC PANEL ([id number]) 2023-11-26 21:32:00 Leander [facility] POCT GLUCOSE (AUTOMATED) 2023-11-26 21:11:00 Lorenzo Ventura [facility] VALPROIC ACID, FREE 2023-11-26 18:07:00 Leander [facility] KEPPRA (LEVETIRACETAM) 2023-11-26 18:07:00 Leander [facility] LACTIC ACID WHOLE BLOOD 2023-11-26 18:07:00 Leander [facility] POCT GLUCOSE (AUTOMATED) 2023-11-26 17:05:00 Lorenzo Ventura [facility] MAGNESIUM 2023-11-26 13:28:00 Raghu Castellanos [facility] VITAMIN B12, LEVEL 2023-11-26 13:28:00 Tabor [facility] FOLATE 2023-11-26 13:28:00 Leander [facility] COMP. METABOLIC PANEL ([id number]) 2023-11-26 13:28:00 Raghu Castellanos [facility] CBC WITH DIFF 2023-11-26 13:28:00 Tabor [facility] LACTIC ACID WHOLE BLOOD 2023-11-26 09:52:00 [facility] POCT GLUCOSE (AUTOMATED) 2023-11-26 02:13:00 Lorenzo Hemrosalie [facility] LACTIC ACID WHOLE BLOOD 2023-11-26 00:53:00 Raghu Castellanos [facility] ELECTROENCEPHALOGRAM 2023-11-26 00:00:00 Leander [facility] POCT GLUCOSE (AUTOMATED) 2023-11-25 20:59:00 Lorenzo Hemrosalie [facility] LACTIC ACID WHOLE BLOOD 2023-11-25 20:56:00 Raghu Castellanos [facility] MAGNESIUM 2023-11-25 20:55:00 Raghu Castellanos [facility] COMP. METABOLIC PANEL ([id number]) 2023-11-25 20:55:00 Raghu Castellanos [facility] POCT GLUCOSE (AUTOMATED) 2023-11-25 16:58:00 Lorenzo Ventura [facility] POCT GLUCOSE (AUTOMATED) 2023-11-25 13:04:00 Lorenzo Ventura [facility] LACTIC ACID WHOLE BLOOD 2023-11-25 09:25:00 Jessica [facility] MAGNESIUM 2023-11-25 09:24:00 Raghu Castellanos [facility] COMP. METABOLIC PANEL ([id number]) 2023-11-25 09:24:00 [facility] CBC WITH DIFF 2023-11-25 09:24:00 Leander [facility] MAGNESIUM 2023-11-25 04:52:00 Leander [facility] COMP. METABOLIC PANEL ([id number]) 2023-11-25 04:52:00 Leander [facility] LACTIC ACID WHOLE BLOOD 2023-11-25 04:52:00 Leander [facility] POCT GLUCOSE (AUTOMATED) 2023-11-25 03:00:00 Lorenzo Ventura [facility] TROPONIN I 2023-11-25 02:59:00 Jessica [facility] COMP. METABOLIC PANEL ([id number]) 2023-11-25 02:59:00 Jessica [facility] HIV 1/2 AG-AB WITH REFLEX 2023-11-25 02:59:00 Jessica [facility] CT ABDOMEN PELVIS W CONTRAST 2023-11-24 22:24:00 Leander [facility] POCT GLUCOSE (AUTOMATED) 2023-11-24 21:21:00 Lorenzo Ventura [facility] MAGNESIUM 2023-11-24 21:08:00 Leander [facility] COMP. METABOLIC PANEL ([id number]) 2023-11-24 21:08:00 Leander [facility] LACTIC ACID WHOLE BLOOD 2023-11-24 21:08:00 Jessica [facility] POCT GLUCOSE (AUTOMATED) 2023-11-24 17:43:00 Lorenzo Hemrosalie [facility] POCT GLUCOSE (AUTOMATED) 2023-11-24 17:43:00 Lorenzo Hemrosalie [facility] MAGNESIUM 2023-11-24 15:47:00 Leander [facility] COMP. METABOLIC PANEL ([id number]) 2023-11-24 15:47:00 Leander [facility] ACTIVATED PARTIAL THRMPLAS DAVID 2023-11-24 15:47:00 [facility] LACTIC ACID WHOLE BLOOD 2023-11-24 15:47:00 Leander [facility] MAGNESIUM 2023-11-24 15:47:00 Tabor, [facility] COMP. METABOLIC PANEL ([id number]) 2023-11-24 15:47:00 Leander [facility] ACTIVATED PARTIAL THRMPLAS DAVID 2023-11-24 15:47:00 [facility] 2023-11-24 15:47:00 Leander [facility] POCT GLUCOSE (AUTOMATED) 2023-11-24 12:33:00 Lorenzo Hemrosalie [facility] POCT GLUCOSE (AUTOMATED) 2023-11-24 12:33:00 Lorenzo Hemrosalie [facility] MAGNESIUM 2023-11-24 10:03:00 Leander [facility] COMP. METABOLIC PANEL ([id number]) 2023-11-24 10:03:00 Leander [facility] CBC WITH DIFF 2023-11-24 10:03:00 Tabor, [facility] LACTIC ACID WITH 3 HOUR REFLEX 2023-11-24 10:03:00 Tabor, [facility] MAGNESIUM 2023-11-24 10:03:00 Tabor, [facility] COMP. METABOLIC PANEL ([id number]) 2023-11-24 10:03:00 Tabor, [facility] CBC WITH DIFF 2023-11-24 10:03:00 Tabor, [facility] LACTIC ACID WITH 3 HOUR REFLEX 2023-11-24 10:03:00 Leander [facility] ACTIVATED PARTIAL THRMPLAS DAVID 2023-11-24 06:13:00 Uli [facility] ACTIVATED PARTIAL THRMPLAS DAVID 2023-11-24 06:13:00 [facility] (AUTOMATED) 2023-11-24 03:15:00 Lorenzo Ventura [facility] POCT GLUCOSE (AUTOMATED) 2023-11-24 03:15:00 Lorenzo Hemrosalie [facility] ACTIVATED PARTIAL THRMPLAS DAVID 2023-11-23 23:09:00 Uli [facility] ACTIVATED PARTIAL THRMPLAS DAVID 2023-11-23 23:09:00 Cris [facility] POCT GLUCOSE (AUTOMATED) 2023-11-23 21:28:00 Lorenzo Ventura [facility] POCT GLUCOSE (AUTOMATED) 2023-11-23 21:28:00 Lorenzo Ventura [facility] CATH PROCEDURE LOG 2023-11-23 20:38:36 [facility] 2023-11-23 20:38:36 Lisandra [facility] CARDIAC CATHETERIZATION 2023-11-23 20:11:00 Lisandra [facility] CARDIAC CATHETERIZATION 2023-11-23 20:11:00 Lisandra [facility] CARDIAC CATHETERIZATION 2023-11-23 20:11:00 Lisandra [facility] CARDIAC CATHETERIZATION 2023-11-23 20:11:00 Lisandra [facility] POCT GLUCOSE (AUTOMATED) 2023-11-23 17:18:00 Lorenzo Ventura [facility] POCT GLUCOSE (AUTOMATED) 2023-11-23 17:18:00 Lorenzo Ventura [facility] POCT GLUCOSE (AUTOMATED) 2023-11-23 16:50:00 Lorenzo Ventura [facility] POCT GLUCOSE (AUTOMATED) 2023-11-23 16:50:00 Lorenzo Ventura [facility] ACTIVATED PARTIAL THRMPLAS DAVID 2023-11-23 15:13:00 [facility] ACTIVATED PARTIAL THRMPLAS DAVID 2023-11-23 15:13:00 Uli [facility] LACTIC ACID WHOLE BLOOD 2023-11-23 15:12:00 Ra [facility] LACTIC ACID WHOLE BLOOD 2023-11-23 15:12:00 Robinson [facility] POCT GLUCOSE (AUTOMATED) 2023-11-23 12:47:00 Lorenzo Ventura [facility] POCT GLUCOSE (AUTOMATED) 2023-11-23 12:47:00 Ivis [facility] MAGNESIUM 2023-11-23 07:52:00 Chrissieoot [facility] HEPATIC FUNCTION PANEL ([id number]) (ALB,T.PRO,BILI T,BU/BC,ALT,AST,ALK PHOS) 2023-11-23 07:52:00 Tabor [facility] BASIC METABOLIC PANEL (NA, K , CL, CO2, GLUCOSE, BUN, CREATININE, CA) 2023-11-23 07:52:00 Khoot, [facility] CBC WITH DIFF 2023-11-23 07:52[facility]AS DAVID 2023-11-23 07:52:00 [facility] LACT[facility] WHOLE BLOOD 2023-11-23 07:52:00 Aleida [facility] MAGNESIUM 2023-11-23 07:52:00 Khoot [facility] HEPATIC FUNCTION PANEL ([id number]) (ALB,T.PRO,BILI T,BU/BC,ALT,AST,ALK PHOS) 2023-11-23 07:52:00 Tabor [facility] BASIC METABOLIC PANEL (NA, K , CL, CO2, GLUCOSE, BUN, CREATININE, CA) 2023-11-23 07:52:00 Khoot [facility] CBC WITH DIFF 2023-11-23 07:52:00 Louise [facility] ACTIVATED PARTIAL THRMPLAS DAVID 2023-11-23 07:52:00 Uli [facility] LACTIC ACID WHOLE BLOOD 2023-11-23 07:52:00 Aleida [facility] LACTIC ACID WHOLE BLOOD 2023-11-23 05:00:00 Aleida [facility] LACTIC ACID WHOLE BLOOD 2023-11-23 05:00:00 Aleida [facility] LACTIC ACID WHOLE BLOOD 2023-11-23 03:12:00 Aleida [facility] LACTIC ACID WHOLE BLOOD 2023-11-23 03:12:00 Aleida, [facility] LACTIC ACID WHOLE BLOOD 2023-11-23 00:57:00 Robinson [facility] LACTIC ACID WHOLE BLOOD 2023-11-23 00:57:00 [facility] PO[facility] GLUCOSE (AUTOMATED) 2023-11-23 00:56:00 Lorenzo Ventura [facility] POCT GLUCOSE (AUTOMATED) 2023-11-23 00:56:00 Lorenzo Ventura [facility] LACTIC ACID WHOLE BLOOD 2023-11-22 23:49:00 Ra [facility] LACTIC ACID WHOLE BLOOD 2023-11-22 23:49:00 Robinson [facility] POCT GLUCOSE (AUTOMATED) 2023-11-22 21:49:00 Lorenzo Ventura [facility] POCT GLUCOSE (AUTOMATED) 2023-11-22 21:49:00 Lorenzo Ventura [facility] LACTIC ACID WHOLE BLOOD 2023-11-22 21:41:00 Leander [facility] LACTIC ACID WHOLE BLOOD 2023-11-22 21:41:00 Leander [facility] POCT GLUCOSE (AUTOMATED) 2023-11-22 21:01:00 Lorenzo Ventura [facility] POCT GLUCOSE (AUTOMATED) 2023-11-22 21:01:00 Lorenzo Ventura [facility] ACTIVATED PARTIAL THRMPLAS DAVID 2023-11-22 19:46:00 [facility]LOOD 2023-11-22 19:46:00 Leander [facility] ACTIVATED PARTIAL THRMPLAS DAVID 2023-11-22 19:46:00 [facility]LE [facility]LOOD 2023-11-22 19:46:00 Leander [facility] LACTIC ACID WHOLE BLOOD 2023-11-22 17:22:00 Faby [facility] LACTIC ACID WHOLE BLOOD 2023-11-22 17:22:00 Faby [facility] POCT GLUCOSE (AUTOMATED) 2023-11-22 17:00:00 Madeline [facility] POCT GLUCOSE (AUTOMATED) 2023-11-22 17:00:00 Madeline [facility] LOWER EXTREMITY ARTERIAL DUPLEX BILATERAL - BY VASCULAR LAB 2023-11-22 16:43:47 Faby [facility] LOWER EXTREMITY ARTERIAL DUPLEX BILATERAL - BY VASCULAR LAB 2023-11-22 16:43:47 Faby [facility] TRANSTHORACIC ECHO (TTE) COMPLETE W/ CONTRAST 2023-11-22 15:50:00 Uli [facility] TRANSTHORACIC ECHO (TTE) COMPLETE W/ CONTRAST 2023-11-22 15:50:00 [facility] 2023-11-22 14:54:18 Faby [facility] ABDOMEN LIMITED 2023-11-22 14:54:18 Faby [facility] HB ECG ROUTINE & RHYTHM STRIP 2023-11-22 14:28:42 Louise [facility] HB ECG ROUTINE & RHYTHM STRIP 2023-11-22 14:28:42 Louise [facility] COMP. METABOLIC PANEL ([id number]) 2023-11-22 14:26:00 Uli [facility] IRON PANEL 2023-11-22 14:26:00 Uli [facility] LACTIC ACID WHOLE BLOOD 2023-11-22 14:26:00 Faby [facility] COMP. METABOLIC PANEL ([id number]) 2023-11-22 14:26:00 Uli [facility] IRON PANEL 2023-11-22 14:26:00 Uli [facility] LACTIC ACID WHOLE BLOOD 2023-11-22 14:26:00 Faby [facility] POCT GLUCOSE (AUTOMATED) 2023-11-22 13:26:00 [facility] 2023-11-22 13:26:[address] [facility] CHEST PULMONARY ANGIOGRAM 2023-11-22 13:10:36 Uli, [facility] CT CHEST PULMONARY ANGIOGRAM 2023-11-22 13:10:36 Uli [facility] PHOSPHORUS 2023-11-22 11:45:00 Uli [facility] CREATINE KINASE 2023-11-22 11:45:00 Louise [facility] FERRITIN SERUM 2023-11-22 11:45:00 Uli [facility] TROPONIN I 2023-11-22 11:45:00 Uli [facility] LIPID PANEL ([id number])(TOTAL CHOLESTEROL, TRIGLYCERIDES, HDL) 2023-11-22 11:45:00 Uli [facility] CBC WITH DIFF 2023-11-22 11:45:00 Uli [facility] GLYCOSYLATED HEMOGLOBIN (A1C) 2023-11-22 11:45:00 Uli [facility] PHOSPHORUS 2023-11-22 11:45:00 Uli [facility] CREATINE KINASE 2023-11-22 11:45:00 Louise [facility] FERRITIN SERUM 2023-11-22 11:45:00 Uli [facility] TROPONIN I 2023-11-22 11:45:00 Uli [facility] LIPID PANEL ([id number])(TOTAL CHOLESTEROL, TRIGLYCERIDES, HDL) 2023-11-22 11:45:00 Uli [facility] CBC WITH DIFF 2023-11-22 11:45:00 Uli [facility] GLYCOSYLATED HEMOGLOBIN (A1C) 2023-11-22 11:45:00 Uli [facility] BLOOD CULTURE SCREEN 2023-11-22 09:37:00 Uli [facility] BLOOD CULTURE SCREEN 2023-11-22 09:37:00 Uli [facility] BLOOD CULTURE SCREEN 2023-11-22 09:36:00 Uli [facility] BLOOD CULTURE SCREEN 2023-11-22 09:36:00 Uli [facility] LOWER EXTREMITY VEIN WITH COMPRESSION BILATERAL (ONLY FOR RULE OUT DVT) 2023-11-22 08:09:01 Uli, [facility] LOWER EXTREMITY VEIN WITH COMPRESSION BILATERAL (ONLY FOR RULE OUT DVT) 2023-11-22 08:09:01 Uli, [facility] LACTIC ACID WHOLE BLOOD 2023-11-22 08:03:00 Uli, [facility] LACTIC ACID WHOLE BLOOD 2023-11-22 08:03:00 Uli, [facility] MAGNESIUM 2023-11-22 08:02:00 Uli, [facility] TROPONIN I 2023-11-22 08:02:00 Uli [facility] PROTHROMBIN TIME / INR 2023-11-22 08:02:00 Uli [facility] D-DIMER 2023-11-22 08:02:00 Uli [facility] ACTIVATED PARTIAL THRMPLAS DAVID 2023-11-22 08:02:00 Uli [facility] PROCALCITONIN 2023-11-22 08:02:00 Uli [facility] MAGNESIUM 2023-11-22 08:02:00 Uli [facility] TROPONIN I 2023-11-22 08:02:00 Uli [facility] PROTHROMBIN TIME / INR 2023-11-22 08:02:00 Uli [facility] D-DIMER 2023-11-22 08:02:00 Uli [facility] ACTIVATED PARTIAL THRMPLAS DAVID 2023-11-22 08:02:00 Uli [facility] PROCALCITONIN 2023-11-22 08:02:00 Uli [facility] XR SHOULDER 2+ VW RIGHT 2023-11-22 07:33:00 Uli [facility] XR SHOULDER 2+ VW RIGHT 2023-11-22 07:33:00 Uli [facility] URINALYSIS 2023-11-22 04:33:00 Megan [facility] URINE DRUG (IMMUNOASSAY) - COMPREHENSIVE DRUG SCREEN W/O REFLEX 2023-11-22 04:33:00 [facility]22 04:33:00 Megan [facility] URINE DRUG (IMMUNOASSAY) - COMPREHENSIVE DRUG SCREEN W/O REFLEX 2023-11-22 04:33:00 Megan [facility] PROTHROMBIN TIME / INR 2023-11-22 04:25:00 Megan [facility] ACTIVATED PARTIAL THRMPLAS DAVID 2023-11-22 04:25:00 Megan [facility] PROTHROMBIN TIME / INR 2023-11-22 04:25:00 [facility] THRMPLAS DAVID 2023-11-22 04:25:00 [facility] 2023-11-22 04:18:14 [facility]23-11-22 04:18:14 [facility] T[facility] 2023-11-22 02:57:00 [facility] HORMONE 2023-11-22 02:57:00 Alcon [facility] RAPID INFLUENZA A/B 2023-11-22 02:57:00 Alcon [facility] COVID-19 (ID NOW RAPID TESTING) 2023-11-22 02:57:00 [facility] INTERPRETATION 2023-11-22 02:57:00 Megan [facility] FREE T4 2023-11-22 02:57:00 [facility] THYRO[facility]UL[facility] HORMONE 2023-11-22 02:57:00 [facility] RAPID INFLUENZA A/B 2023-11-22 02:57:00 Alcon [facility] COVID-19 (ID NOW RAPID TESTING) 2023-11-22 02:57:00 [facility] COVID INTERPRETATION 2023-11-22 02:57:00 Megan [facility] AMYLASE 2023-11-22 02:52:00 [facility] LIP[facility] 2023-11-22 02:52:00 [facility] TROPONIN I 2023-11-22 02:52:00 [facility] COMP. METABOLIC PANEL ([id number]) 2023-11-22 02:52:00 [facility] CBC WITH DIFF 2023-11-22 02:52:00 [facility] N-TERMINAL PRO-BNP 2023-11-22 02:52:00 [facility] AMYLASE 2023-11-22 02:52:00 [facility] LIPASE 2023-11-22 02:52:00 [facility] TROPONIN I 2023-11-22 02:52:00 [facility] COMP. METABOLIC PANEL ([id number]) 2023-11-22 02:52:00 [facility] WITH DIFF 2023-11-22 02:52:00 Alcon [facility] N-TERMINAL PRO-BNP 2023-11-22 02:52:00 [facility]ST 1 VW 2023-11-22 02:34:13 [facility]ST 1 VW 2023-11-22 02:34:13 Alcon [facility] HB ECG ROUTINE & RHYTHM STRIP 2023-11-22 02:16:24 [facility] DOC[facility] 2023-11-18 18:34:06 Doctor Unassigned, [facility] RADIOLOGY DOCUMENTATION 2023-11-05 19:18:01 Doctor Unassigned, [facility] POCT-GLUCOSE METER 2023-09-08 08:40:00 Bud [facility] CBC W/PLT COUNT & AUTO DIFFERENTIAL 2023-09-08 04:16[facility] 2023-09-08 04:16:00 Joshua [facility] MAGNESIUM 2023-09-08 04:16:00 Joshua [facility] PHOSPHORUS 2023-09-08 04:16:00 Joshua [facility] CBC W/PLT COUNT & AUTO DIFFERENTIAL 2023-09-08 04:16:00 [facility] POCT-GLU[facility]SE METER 2023-09-07 21:29:00 Bud [facility] XR KNEE 3 VIEWS LEFT 2023-09-07 19:21:02 Bud [facility] VENOUS DOPPLER LEGS BILATERAL 2023-09-07 12:45:00 Joshua [facility] CBC W/PLT COUNT & AUTO DIFFERENTIAL 2023-09-07 03:17:00 Joshua [facility] BASIC METABOLIC PANEL 2023-09-07 03:17:00 Joshua [facility] MAGNESIUM 2023-09-07 03:17:00 [facility] PH[facility] 2023-09-07 03:17:00 [facility] CBC W/PLT COUNT & AUTO DIFFERENTIAL 2023-09-07 03:17:00 Joshua [facility] POCT-GLUCOSE METER 2023-09-06 21:17:00 Bud [facility] POCT-GLUCOSE METER 2023-09-06 18:37:00 Bud [facility] POCT-GLUCOSE METER 2023-09-06 13:16:00 Bud [facility] POCT-GLUCOSE METER 2023-09-06 08:21:00 Bud [facility] CBC W/PLT COUNT & AUTO DIFFERENTIAL 2023-09-06 04:49:00 Joshua [facility] BASIC METABOLIC PANEL 2023-09-06 04:49:00 Joshua [facility] MAGNESIUM 2023-09-06 04:49:00 [facility] 2023-09-06 04:49:00 Joshua [facility] CBC W/PLT COUNT & AUTO DIFFERENTIAL 2023-09-06 04:49:00 Joshua [facility] POCT-GLUCOSE METER 2023-09-05 21:24:00 Bud [facility] MR BRAIN WITH & WITHOUT IV CONTRAST 2023-09-05 11:25:07 LoveSandi [facility] POCT-GLUCOSE METER 2023-09-05 08:10:00 Bud [facility] CBC W/PLT COUNT & AUTO DIFFERENTIAL 2023-09-05 04:44:00 [facility] BASIC METABOLIC PANEL 2023-09-05 04:44:00 Joshua [facility] MAGNESIUM 2023-09-05 04:44:00 Joshua [facility] PHOSPHORUS 2023-09-05 04:44:00 [facility] POCT-GLUCOSE METER 2023-09-05 04:44[facility] W/[facility]T COUNT & AUTO DIFFERENTIAL 2023-09-05 04:44:00 [facility] POCT-GLUCOSE METER 2023-09-04 21:38:00 [facility] PO[facility]SE METER 2023-09-04 15:42[facility] SARS-[facility]OV[facility]/INFLUENZA/RSV RT-PCR 2023-09-04 11:25:00 Uli [facility] POCT-GLUCOSE METER 2023-09-04 10:53:00 [facility]SE METER 2023-09-04 08:04[facility]23-09-04 06:56:00 Uli [facility] IRON, TIBC, % SAT. (WITHOUT FERRITIN) 2023-09-04 06:56:00 Uli [facility] FERRITIN 2023-09-04 06:56:00 Uli [facility] BLOOD CULTURE 2023-09-04 06:37:00 Jorge Pereira [facility] MR LUMBAR SPINE WITHOUT IV CONTRAST 2023-09-04 05:47:25 Chico Ogden [facility] MR THORACIC SPINE WITHOUT IV CONTRAST 2023-09-04 04:53:00 Postolowski, [facility] MR CERVICAL SPINE WITHOUT IV CONTRAST 2023-09-04 04:18:[address] [facility] [address] THORACIC SPINE WITHOUT IV CONTRAST 2023-09-04 03:08:00 Randall [facility] CT LUMBAR SPINE WITHOUT IV CONTRAST 2023-09-04 03:08:00 Randall, [facility] LACTIC ACID, VENOUS 2023-09-04 01:42:00 [facility] TYPE AND SCREEN, AUTOMATED 2023-09-04 01:42:00 [facility] CBC W/PLT COUNT & AUTO DIFFERENTIAL 2023-09-04 00:51:00 Melvi [facility] COMPREHENSIVE METABOLIC PANEL 2023-09-04 00:51:00 Melvi [facility] MAGNESIUM 2023-09-04 00:51:00 Melvi [facility] PHOSPHORUS 2023-09-04 00:51:00 Melvi [facility] PROTHROMBIN TIME/INR 2023-09-04 00:51:00 Melvi [facility] APTT 2023-09-04 00:51:00 Melvi [facility] B-TYPE NATRIURETIC FACTOR (BNP) 2023-09-04 00:51:00 Melvi [facility] URINALYSIS WITHOUT MICROSCOPIC 2023-09-04 00:51:00 Melvi [facility] RAPID DRUG SCREEN, URINE 2023-09-04 00:51:00 Melvi [facility] D-DIMER 2023-09-04 00:51:00 London Loyola [facility] FIBRINOGEN 2023-09-04 00:51:00 [facility] CBC W/PLT COUNT & AUTO DIFFERENTIAL 2023-09-04 00:51:00 Melvi [facility] EKG-SCANNED 2023-09-04 00:00:00 Provider, Default Scanning [facility] LACTIC ACID WHOLE BLOOD 2023-08-12 20:31:00 [facility] COMP. METABOLIC PANEL ([id number]) 2023-08-12 20:29:00 M[facility] CBC WITH DIFF 2023-08-12 20:29:00 M[facility] CONSENT/REFUSAL FOR DIAGNOSI S AND TREATMENT 2023-08-12 19:43:16 Doctor Unassigned, [facility] TRANSESOPHAGEAL ECHO 2023-06-16 11:05:00 [facility] T SPOT TB 2023-06-15 04:51:00 Filiberto Blairwv Raul [facility] FUNGITELL R B-D-GLUCAN WITH REFLEX TO TITER 2023-06-15 04:51:00 Filiberto Blairwv Raul [facility] ASPERGILLUS GALACTOMANNAN ANTIGEN 2023-06-15 04:51:00 Lauren Blair [facility] VANCOMYCIN LEVEL, TROUGH 2023-06-15 04:51:00 Kaylene Mendosa [facility] T-SPOT(R).TB (QUEST) 2023-06-15 04:27:00 Provider, Not In System [facility] T-SPOT(R).TB (QUEST) 2023-06-15 04:27:00 System, Provider Not In [facility] ECHO W CONTRAST & DOPPLER 2023-06-14 09:22:00 [facility] HEMOGLOBIN A1C 2023-06-14 04:08:00 Marianela Collazo [facility] CBC (HEMOGRAM ONLY) 2023-06-14 04:08:00 [facility] [facility] BASIC METABOLIC PANEL 2023-06-14 04:08:00 [facility] CRYPTOCOCCAL ANTIGEN 2023-06-13 17:21:00 Lauren Blair [facility] HC LAB HIV-1 AG W/HIV-1&2 AB 2023-06-13 17:21:00 Lauren Blair [facility] VENOUS DOPPLER ARM, LEFT 2023-06-13 17:20:00 Marianela Collazo [facility] LEGIONELLA ANTIGEN, URINE 2023-06-13 17:00:00 [facility] SPUTUM CULTURE + GRAM STAIN 2023-06-13 14:33:00 [facility] MR LUMBAR SPINE WITH & WITHOUT IV CONTRAST 2023-06-13 13:03:47 Burt Nelson [facility] ECG 12-LEAD 2023-06-13 11:47:02 [facility] ECG 12-LEAD 2023-06-13 11:47:02 Unknown, Hl7 Doctor [facility] MRSA SCREEN 2023-06-13 09:19:00 [facility] CBC W/PLT COUNT & AUTO DIFFERENTIAL 2023-06-13 06:03:00 Marianela Collazo [facility] COMPREHENSIVE METABOLIC PANEL 2023-06-13 06:03:00 Marianela Collazo [facility] PROTHROMBIN TIME/INR 2023-06-13 [facility] CREATINE KINASE (CK) 2023-06-13 06:03:00 [facility] CBC W/PLT COUNT & AUTO DIFFERENTIAL 2023-06-13 06:03:00 Marianela Collazo [facility] BLOOD CULTURE 2023-06-13 06:02:00 Marianela Collazo [facility] CBC W/PLT COUNT & AUTO DIFFERENTIAL 2023-06-02 04:41:00 Sunil Chu [facility] BASIC METABOLIC PANEL 2023-06-02 04:41:00 Sunil Chu [facility] MAGNESIUM 2023-06-02 04:41:00 Sunil Chu [facility] PHOSPHORUS 2023-06-02 04:41:00 Sunil Chu [facility] CBC W/PLT COUNT & AUTO DIFFERENTIAL 2023-06-02 04:41:00 Sunil Chu [facility] XR SPINE LUMBAR 1 VIEW 2023-06-01 10:31:00 Jose [facility] XR SPINE LUMBAR 1 VIEW 2023-06-01 09:46:00 [place] [facility] LAMINECTOMY, SPINE, LUMBAR 2023-06-01 09:10:00 [facility] PROCEDURE W/ C-ARM 2023-06-01 09:10:00 [place] [facility] LAMINECTOMY, SPINE, LUMBAR 2023-06-01 07:30:00 [place] [facility] PROCEDURE W/ C-ARM 2023-06-01 07:30:00 [place] [facility] SCREEN, URINE 2023-06-01 04:33:00 [place] [facility] BASIC METABOLIC PANEL 2023-05-31 22:55:00 Dallas Gomez [facility] CBC W/PLT COUNT & AUTO DIFFERENTIAL 2023-05-31 22:55:00 Patricia [facility] PT/APTT 2023-05-31 22:55:00 Dallas Gomez [facility] CBC W/PLT COUNT & AUTO DIFFERENTIAL 2023-05-31 22:55:00 Dallas Gomez [facility] CT NECK SOFT TISSUE WITHOUT IV CONTRAST 2023-05-31 09:39:30 [facility] TYPE AND SCREEN, AUTOMATED 2023-05-31 09:13:00 Omar Burt [facility] BASIC METABOLIC PANEL 2023-05-29 06:43:00 Burt Nelson [facility] CBC W/PLT COUNT & AUTO DIFFERENTIAL 2023-05-29 06:43:00 Omar [facility] CBC W/PLT COUNT & AUTO DIFFERENTIAL 2023-05-29 06:43:00 [facility] SPINE CERVICAL 2 OR 3 VIEWS 2023-05-28 18:57:00 ChilaBurt poon [facility] FL FLUORO NON-SPECIFIC UP TO 1 HOUR 2023-05-28 10:48:00 Jose [facility] [place] FLUORO NON-SPECIFIC UP TO 1 HOUR 2023-05-28 10:07:00 Jose [facility] DISCECTOMY, SPINE, CERVICAL, ANTERIOR APPROACH, WITH FUSION 2023-05-28 08:15:00 [facility] INSERTION, HARDWARE, SPINAL 2023-05-28 08:15:00 [facility] PROCEDURE, ALLOGRAFT, FOR SPINE SURGERY 2023-05-28 08:15:00 [facility] AUTOGRAFT FOR SPINE SURGERY 2023-05-28 08:15:00 [place]i [facility] PROCEDURE W/ C-ARM 2023-05-28 08:15:00 [facility] NEUROPHYSIOLOGIC MONITORING, INTRAOPERATIVE 2023-05-28 08:15:00 Jose [facility] PROCEDURE, USING OPERATING MICROSCOPE 2023-05-28 08:15:00 [place] [facility] HCG, QUANTITATIVE, 2023-05-28 07:42:00 Yue Bui [facility] TYPE AND SCREEN, AUTOMATED 2023-05-28 07:42:00 Quin Monet [facility] XR CHEST 1 VIEW PORTABLE / BEDSIDE 2023-04-01 15:32:16 Thomas Lozoya [facility] B-TYPE NATRIURETIC FACTOR (BNP) 2023-04-01 13:32:00 Thomas Lozoya [facility] ECHO W CONTRAST & DOPPLER 2023-03-31 20:18:37 Jasen [facility] MR CERVICAL SPINE WITHOUT IV CONTRAST 2023-03-31 09:25:00 Edward Lewis [facility] CBC (HEMOGRAM ONLY) 2023-03-31 03:45:00 Jasen [facility] COMPREHENSIVE METABOLIC PANEL 2023-03-31 03:45:00 Jasen [facility] ARTERIAL DOPPLER LEGS BILATERAL 2023-03-30 15:45:00 [facility] ARTERIAL (ALEISHA'S W/ DOPPLER) ONLY 2023-03-30 15:44:00 Peteneena [facility] ECG 12-LEAD 2023-03-30 13:06:22 Jevonlia [facility] ECG 12-LEAD 2023-03-30 13:06:22 Unknown, Hl7 [facility] MR THORACIC SPINE WITHOUT IV CONTRAST 2023-03-30 12:29:58 Eric [facility] MR LUMBAR SPINE WITHOUT IV CONTRAST 2023-03-30 11:58[facility]OWSY 2023-03-30 09:57:53 [facility] VALPROIC ACID LEVEL, TOTAL 2023-03-30 09:06:00 [facility] URINE CULTURE 2023-03-30 03:54:00 Eric [facility] CBC (HEMOGRAM ONLY) 2023-03-30 03:52:00 [facility] COMPREHENSIVE METABOLIC PANEL 2023-03-30 03:52:00 [facility] HEMOGLOBIN A1C 2023-03-30 03:52:00 [facility] PT/APTT 2023-03-30 03:52:00 Thomas Lozoya [facility] EKG-SCANNED 2023-03-29 00:00:00 Provider, Default Scanning [facility] CT HEAD WO CONTRAST 2022-12-11 18:36:49 Alfonso [facility] URINE DRUG (IMMUNOASSAY) - COMPREHENSIVE DRUG SCREEN 2022-12-11 17:13:00 Alfonso [facility] URINALYSIS 2022-12-11 17:13:[address] [facility] [address] CHEST PULMONARY ANGIOGRAM 2022-12-11 16:26:39 Alfonso [facility] MAGNESIUM 2022-12-11 14:57:00 Alfonso [facility] COMP. METABOLIC PANEL ([id number]) 2022-12-11 14:57:00 Alfonso [facility] D-DIMER 2022-12-11 14:15:00 Alfonso [facility] XR CHEST 1 VW 2022-12-11 14:10:26 Alfonso [facility] TROPONIN I 2022-12-11 14:02:00 Alfonso [facility] CBC WITH DIFF 2022-12-11 14:02:00 Alfonso [facility] N-TERMINAL PRO-BNP 2022-12-11 14:02:00 Alfonso [facility] HB ECG ROUTINE & RHYTHM STRIP 2022-12-11 14:01:08 Alfonso [facility] CONSENT/REFUSAL FOR DIAGNOSI S AND TREATMENT 2022-12-11 13:52:01 Doctor Unassigned, [facility] ECG 12-LEAD 2022-08-03 05:03:32 Unknown, Hl7 Doctor [facility] ECG 12-LEAD 2022-08-03 05:03:32 Unknown, Hl7 [facility] LIPID PANEL 2022-08-02 21:14:00 [facility] TSH/FREE T4 IF INDICATED 2022-08-02 21:14:00 [facility] VITAMIN B12 2022-08-02 21:14:00 [facility] HEMOGLOBIN A1C 2022-08-02 21:14:00 [facility] COMPREHENSIVE METABOLIC PANEL 2022-08-02 21:14:00 [facility] CBC W/PLT COUNT & AUTO DIFFERENTIAL 2022-08-02 21:14:00 [facility] RPR 2022-08-02 21:14:00 [facility] HC LAB HIV-1 AG W/HIV-1&2 AB 2022-08-02 21:14:00 [facility] C-REACTIVE PROTEIN 2022-08-02 21:14:00 Donaldo Hightower [facility] CBC W/PLT COUNT & AUTO DIFFERENTIAL 2022-08-02 21:14:00 Donaldo Hightower [facility] EKG-SCANNED 2022-08-02 00:00:00 Provider, Default Scanning [facility] CT HEAD WO CONTRAST 2022-08-01 23:52:15 Essence D[facility] GALV ONLY - INFLUENZA A B RS V PCR 2022-08-01 18:28:00 Letitia [facility] TRANSTHORACIC ECHO (TTE) COMPLETE W/ CONTRAST 2022-08-01 14:42:00 Kylee [facility] MAGNESIUM 2022-08-01 10:42:00 Essence [facility] BASIC METABOLIC PANEL (NA, K , CL, CO2, GLUCOSE, BUN, CREATININE, CA) 2022-08-01 10:42:00 Essence [facility] CBC WITH DIFF 2022-08-01 10:42:00 Essence [facility] N-TERMINAL PRO-BNP 2022-08-01 10:42:00 [facility]SE (AUTOMATED) 2022-08-01 06:56:00 Essence [facility] CRITICAL CARE 2022-07-31 22:31:36 Alcon [facility] URINALYSIS 2022-07-31 20:52:00 Alcon [facility] URINE DRUG (IMMUNOASSAY) - COMPREHENSIVE DRUG SCREEN W/O REFLEX 2022-07-31 20:52:00 Alcon [facility] XR CHEST 1 VW 2022-07-31 18:45:17 Alcon [facility] LIPASE 2022-07-31 17:58:00 Alcon [facility] TROPONIN I 2022-07-31 17:58:00 Alcon [facility] COMP. METABOLIC PANEL ([id number]) 2022-07-31 17:58:00 Alcon [facility] CBC WITH DIFF 2022-07-31 17:58:00 Megan [facility] PROTHROMBIN TIME / INR 2022-07-31 17:58:00 Megan [facility] ACTIVATED PARTIAL THRMPLAS DAVID 2022-07-31 17:58:00 Megan [facility] N-TERMINAL PRO-BNP 2022-07-31 17:58:00 Megan [facility] HB ECG ROUTINE & RHYTHM STRIP 2022-07-31 17:46:28 Megan [facility] NOTICE OF PRIVACY PRACTICES 2022-07-31 17:35:38 Doctor Unassigned, [facility] CONSENT/REFUSAL FOR DIAGNOSI S AND TREATMENT 2022-07-31 17:35:13 Doctor Unassigned, [facility] PHOSPHORUS 2022-05-08 05:51:00 Shefali [facility] MAGNESIUM 2022-05-08 05:51:00 [facility] [...] CREATININE, CA) 2022-05-07 07:09:00 [facility] CBC WITH DIFF 2022-05-07 07:09:00 [facility] POCT GLUCOSE (AUTOMATED) 2022-05-07 01:16:00 Brandyn Mc[facility] HB ABO GROUPING 2022-05-06 05:07:00 Ismael [facility] BASIC METABOLIC PANEL (NA, K , CL, CO2, GLUCOSE, BUN, CREATININE, CA) 2022-05-06 05:04:00 Shefali [facility] CBC WITH DIFF 2022-05-06 05:04:00 Shefali [facility] KEPPRA (LEVETIRACETAM) 2022-05-06 05:04:00 Azeem M[facility] MR LUMBAR SPINE WO CONTRAST 2022-05-06 02:54:37 Ender [facility] ELECTROENCEPHALOGRAM 2022-05-06 00:00:00 [facility] BASIC METABOLIC PANEL (NA, K , CL, CO2, GLUCOSE, BUN, CREATININE, CA) 2022-05-05 07:57:00 [facility] 2022-05-05 07:57:00 Ismael Dunn [facility] PROTHROMBIN TIME / INR 2022-05-05 07:57:00 Ismael Dunn [facility] ACTIVATED PARTIAL THRMPLAS DAVID 2022-05-05 07:57:00 [facility] FIB[facility]EN 2022-05-05 07:57:00 Shaun Religion [facility] EMERGENCY SERVICES AGREEMENT S AND AUTHORIZATIONS 2022-05-04 05:01:00 Doctor Unassigned, [facility] VITAMIN D, 25-OH 2022-04-15 16:53:00 Sen [facility] MR THORACIC SPINE WO CONTRAST 2022-04-15 11:56:[address] [facility] MR CERVICAL SPINE WO CONTRAST 2022-04-15 11:20:[address] [facility] BASIC METABOLIC PANEL (NA, K , CL, CO2, GLUCOSE, BUN, CREATININE, CA) 2022-04-15 10:36:00 Charmaine [facility] TEST, URINE 2022-04-15 04:39:[address] [facility] URINE DRUG (IMMUNOASSAY) - COMPREHENSIVE DRUG SCREEN 2022-04-15 04:39:[address] [facility] URINALYSIS 2022-04-15 04:39:[address] [facility] TRANSTHORACIC ECHO (TTE) COMPLETE W/ CONTRAST 2022-04-14 16:37:[address] [facility] KEPPRA (LEVETIRACETAM) 2022-04-14 15:30:[address] [facility] MAGNESIUM 2022-04-14 10:03:[address] [facility] BASIC METABOLIC PANEL (NA, K , CL, CO2, GLUCOSE, BUN, CREATININE, CA) 2022-04-14 10:03:[address] [facility] MR LUMBAR SPINE WO CONTRAST 2022-04-14 02:48:[address] [facility] MR STROKE BRAIN WO CONTRAST 2022-04-14 02:29:[address] [facility] CT STROKE ANGIOGRAM HEAD 2022-04-13 18:40:00 S[address] [facility] CT STROKE ANGIOGRAM NECK 2022-04-13 18:40:[address] [facility] CT STROKE HEAD WO CONTRAST 2022-04-13 18:36:00 Sapna [facility] TROPONIN I 2022-04-13 18:17:00 Sapna [facility] THYROID STIMULATING HORMONE 2022-04-13 18:17:[address] [facility] BASIC METABOLIC PANEL (NA, K , CL, CO2, GLUCOSE, BUN, CREATININE, CA) 2022-04-13 18:17:00 Sapna [facility] LIPID PANEL ([id number])(TOTAL CHOLESTEROL, TRIGLYCERIDES, HDL) 2022-04-13 18:17:[address] [facility] CBC WITHOUT DIFF 2022-04-13 18:17:00 Sapna [facility] GLYCOSYLATED HEMOGLOBIN (A1C) 2022-04-13 18:17:[address] [facility] PROTHROMBIN TIME / INR 2022-04-13 18:17:00 Sapna [facility] ACTIVATED PARTIAL THRMPLAS DAVID 2022-04-13 18:17:00 Sapna [facility] COVID-19 (ID NOW RAPID TESTING) 2022-04-13 18:17:00 Spana [facility] LAB ONLY COVID INTERPRETATION 2022-04-13 18:17:00 Sapna [facility]arg[facility] HB ECG ROUTINE & RHYTHM STRIP 2022-04-13 18:15:49 Sapna [facility] CONSENT/REFUSAL FOR DIAGNOSI S AND TREATMENT 2022-04-13 18:05:14 Doctor Unassigned, [facility] HOSPITAL ADMISSION 2022-04-13 05:01:00 Doctor Unassigned, [facility] SARS-COV-2 COVID-19 VACCINE 12 YRS+,0.3ML,IM (PFIZER - ROSE TOP) 2022-02-19 15:21:12 Doctor Unassigned, [facility] URINE DRUG (IMMUNOASSAY) - COMPREHENSIVE DRUG SCREEN W/O REFLEX 2021-11-23 21:21:[address] [facility] [address] HEAD WO CONTRAST 2021-11-23 20:58:00 [facility] POCT TEST 2021-11-23 20:46:00 [facility] URINALYSIS 2021-11-23 20:43:00 [facility] LIPASE 2021-11-23 20:27:00 [facility] TROPONIN I 2021-11-23 20:27:00 [facility] COMP. METABOLIC PANEL ([id number]) 2021-11-23 20:27:00 [facility] CBC WITH DIFF 2021-11-23 20:27:00 [facility] POCT GLUCOSE (AUTOMATED) 2021-11-23 20:15:00 Doctor Unassigned, [facility] SARS-COV-2 COVID-19 VACCINE,0.3ML,IM (PFIZER) 2021-05-24 14:23:12 Doctor Unassigned, [facility] SARS-COV-2 COVID-19 VACCINE,0.3ML,IM (PFIZER) 2021-05-03 14:59:29 Doctor Unassigned, [facility] EMERGENCY SERVICES AGREEMENT S AND AUTHORIZATIONS 2021-04-16 05:01:00 Doctor Unassigned, [facility] URINALYSIS 2021-03-17 03:09:00 Fabrice [facility] XR CHEST 1 VW 2021-03-17 01:45:07 Fabrice [facility] TROPONIN I 2021-03-17 01:35:00 [facility]. METABOLIC PANEL ([id number]) 2021-03-17 01:35:00 [facility] WITH DIFF 2021-03-17 01:35:[address] [facility] N-TERMINAL PRO-BNP 2021-03-17 01:35:[address] [facility] COVID-19 (ID NOW RAPID TESTING) 2021-03-17 00:58:00 Mj [facility] CONSENT/REFUSAL FOR DIAGNOSI S AND TREATMENT 2021-03-17 00:32:59 Doctor Unassigned, [facility] COVID-19 (ID NOW RAPID TESTING) 2021-02-19 17:04:[address] [facility] ABDOMEN PELVIS W CONTRAST 2021-02-19 16:41:18 Estefania [facility] LIPASE 2021-02-19 15:58:00 Estefania [facility] COMP. METABOLIC PANEL ([id number]) 2021-02-19 15:58:00 Estefania [facility] CBC WITH DIFF 2021-02-19 15:58:00 Estefania [facility] URINALYSIS 2021-02-19 15:58:00 Estefania [facility] NOTICE OF PRIVACY PRACTICES 2021-02-19 15:30:46 Doctor Unassigned, [facility] CONSENT/REFUSAL FOR DIAGNOSI S AND TREATMENT 2021-02-19 15:30:30 Doctor Unassigned, [facility] Plan of Care Planned Activity Planned Date Details Comments Source Future Scheduled Test 2025-08-02 00:00:00 Lipid panel (procedure) [code = 95362564] [facility] Future Scheduled Test 2025-08-02 00:00:00 Lipid panel (procedure) [code = 44598003] [facility] Future Scheduled Test 2025-08-02 00:00:00 Lipid panel (procedure) [code = 20269466] [facility] Future Scheduled Test 2025-08-02 00:00:00 Lipid panel (procedure) [code = 23383143] [facility] Future Scheduled Test 2025-08-02 00:00:00 Lipid panel (procedure) [code = 76373752] [facility] Future Scheduled Test 2025-08-02 00:00:00 Lipid panel (procedure) [code = 32996255] [facility] Future Scheduled Test 2025-08-02 00:00:00 Lipid panel (procedure) [code = 00771525] [facility] Future Scheduled Test 2025-08-02 00:00:00 Lipid panel (procedure) [code = 83048170] [facility] Future Scheduled Test 2025-08-02 00:00:00 Lipid panel (procedure) [code = 37319238] [facility] Future Scheduled Test 2025-08-02 00:00:00 Lipid panel (procedure) [code = 22187816] [facility] Future Scheduled Test 2025-08-02 00:00:00 Lipid panel (procedure) [code = 81760922] [facility] Future Scheduled Test 2025-08-02 00:00:00 Lipid panel (procedure) [code = 82927780] [facility] Future Scheduled Test 2025-08-02 00:00:00 Lipid panel (procedure) [code = 72606427] [facility] Future Scheduled Test 2025-08-02 00:00:00 Lipid panel (procedure) [code = 88787949] [facility] Future Scheduled Test 2025-08-02 00:00:00 Lipid panel (procedure) [code = 65418193] [facility] Future Scheduled Test 2025-08-02 00:00:00 Lipid panel (procedure) [code = 45997716] [facility] Future Scheduled Test 2025-08-02 00:00:00 Lipid panel (procedure) [code = 47781217] [facility] Future Scheduled Test 2025-08-02 00:00:00 Lipid panel (procedure) [code = 55877715] [facility] Future Scheduled Test 2025-08-02 00:00:00 Lipid panel (procedure) [code = 71542199] [facility] Future Scheduled Test 2025-08-02 00:00:00 Lipid panel (procedure) [code = 65897689] [facility] Future Scheduled Test 2025-08-02 00:00:00 Lipid panel (procedure) [code = 04341443] [facility] Future Scheduled Test 2025-08-02 00:00:00 Lipid panel (procedure) [code = 70444827] [facility] Future Scheduled Test 2025-08-02 00:00:00 Lipid panel (procedure) [code = 96189295] [facility] Future Scheduled Test 2025-08-02 00:00:00 Lipid panel (procedure) [code = 80168009] [facility] Future Scheduled Test 2025-08-02 00:00:00 Lipid panel (procedure) [code = 51913985] [facility] Future Scheduled Test 2025-08-02 00:00:00 Lipid panel (procedure) [code = 98562890] [facility] Future Scheduled Test 2025-08-02 00:00:00 Lipid panel (procedure) [code = [id number]] [facility] Future Scheduled Test 2025-08-02 00:00:00 Lipid panel (procedure) [code = 31983038] [facility] Future Scheduled Test 2025-08-02 00:00:00 Lipid panel (procedure) [code = 73341567] [facility] Future Scheduled Test 2025-08-02 00:00:00 Lipid panel (procedure) [code = 22839309] [facility] Future Scheduled Test 2025-08-02 00:00:00 Lipid panel (procedure) [code = 10522104] [facility] Future Scheduled Test 2025-08-02 00:00:00 Lipid panel (procedure) [code = 21708264] [facility] Future Scheduled Test 2025-08-02 00:00:00 Lipid panel (procedure) [code = 21165622] [facility] Future Scheduled Test 2025-08-02 00:00:00 Lipid panel (procedure) [code = 51411785] [facility] Future Scheduled Test 2025-08-02 00:00:00 Lipid panel (procedure) [code = 39317409] [facility] Future Scheduled Test 2025-08-02 00:00:00 Lipid panel (procedure) [code = 83135155] [facility] Future Scheduled Test 2025-08-02 00:00:00 Lipid panel (procedure) [code = 00752223] [facility] Future Scheduled Test 2025-08-02 00:00:00 Lipid panel (procedure) [code = 21278577] [facility] Future Scheduled Test 2025-08-02 00:00:00 Lipid panel (procedure) [code = 07892044] [facility] Future Scheduled Test 2025-08-02 00:00:00 Lipid panel (procedure) [code = 61293407] [facility] Future Scheduled Test 2025-08-02 00:00:00 Lipid panel (procedure) [code = 98713489] [facility] Future Scheduled Test 2025-08-02 00:00:00 Lipid panel (procedure) [code = 08535105] [facility] Future Scheduled Test 2025-08-02 00:00:00 Lipid panel (procedure) [code = 92488713] [facility] Future Scheduled Test 2025-08-02 00:00:00 Lipid panel (procedure) [code = 38474681] [facility] Future Scheduled Test 2025-08-02 00:00:00 Lipid panel (procedure) [code = 22927005] [facility] Future Scheduled Test 2025-08-02 00:00:00 Lipid panel (procedure) [code = 46056819] [facility] Future Scheduled Test 2025-08-02 00:00:00 Lipid panel (procedure) [code = 39967085] [facility] Future Scheduled Test 2025-08-02 00:00:00 Lipid panel (procedure) [code = 03323024] [facility] Future Scheduled Test 2025-08-02 00:00:00 Lipid panel (procedure) [code = 46849646] [facility] Future Scheduled Test 2025-08-02 00:00:00 Lipid panel (procedure) [code = 66303626] [facility] Future Scheduled Test 2025-08-02 00:00:00 Lipid panel (procedure) [code = 39876605] [facility] Future Scheduled Test 2025-08-02 00:00:00 Lipid panel (procedure) [code = 61250568] [facility] Future Scheduled Test 2025-08-02 00:00:00 Lipid panel (procedure) [code = 96000460] [facility] Future Scheduled Test 2025-08-02 00:00:00 Lipid panel (procedure) [code = 42088074] [facility] Future Scheduled Test 2025-08-02 00:00:00 Lipid panel (procedure) [code = 89423869] [facility] Future Scheduled Test 2025-08-02 00:00:00 Lipid panel (procedure) [code = 45143455] [facility] Future Scheduled Test 2025-08-02 00:00:00 Lipid panel (procedure) [code = 24387794] [facility] Future Scheduled Test 2025-08-02 00:00:00 Lipid panel (procedure) [code = 30396773] [facility] Future Scheduled Test 2025-08-02 00:00:00 Lipid panel (procedure) [code = 97382835] [facility] [facility] 2025-08-02 00:00:00 Lipid panel (procedure) [code = 91782044] [facility] Future Scheduled Test 2025-08-02 00:00:00 Lipid panel (procedure) [code = [id number]] [facility] Future Scheduled Test 2025-08-02 00:00:00 Lipid panel (procedure) [code = [id number]] [facility] Future Scheduled Test 2025-08-02 00:00:00 Lipid panel (procedure) [code = [id number]] [facility] Future Scheduled Test 2025-08-02 00:00:00 Lipid panel (procedure) [code = [id number]] [facility] Future Scheduled Test 2025-08-02 00:00:00 Lipid panel (procedure) [code = [id number]] [facility] Future Scheduled Test 2025-08-02 00:00:00 Lipid panel (procedure) [code = [id number]] [facility] Future Scheduled Test 2025-08-02 00:00:00 Lipid panel (procedure) [code = [id number]] [facility] Future Scheduled Test 2025-08-02 00:00:00 Lipid panel (procedure) [code = [id number]] [facility] Future Scheduled Test 2025-08-02 00:00:00 Lipid panel (procedure) [code = [id number]] [facility] Future Scheduled Test 2025-08-02 00:00:00 Lipid panel (procedure) [code = 86174620] [facility] Scheduled Test 2024-05-28 00:00:00 Tobacco Cessation Counseling and Screening (12+) [code = Tobacco Cessation Counseling and Screening (12+)] [facility] Future Scheduled Test 2024-05-28 00:00:00 Tobacco Cessation Counseling and Screening (12+) [code = Tobacco Cessation Counseling and Screening (12+)] [facility] Scheduled Test 2024-05-28 00:00:00 Tobacco Cessation Counseling and Screening (12+) [code = Tobacco Cessation Counseling and Screening (12+)] [facility] Future Scheduled Test 2024-05-28 00:00:00 Tobacco Cessation Counseling and Screening (12+) [code = Tobacco Cessation Counseling and Screening (12+)] [facility] Future Scheduled Test 2024-05-28 00:00:00 Tobacco Cessation Counseling and Screening (12+) [code = Tobacco Cessation Counseling and Screening (12+)] [facility] Future Scheduled Test 2024-05-28 00:00:00 Tobacco Cessation Counseling and Screening (12+) [code = Tobacco Cessation Counseling and Screening (12+)] [facility] Scheduled Test 2024-05-28 00:00:00 Tobacco Cessation Counseling and Screening (12+) [code = Tobacco Cessation Counseling and Screening (12+)] [facility] Future Scheduled Test 2024-05-28 00:00:00 Tobacco Cessation Counseling and Screening (12+) [code = Tobacco Cessation Counseling and Screening (12+)] [facility] Scheduled Test 2024-05-28 00:00:00 Tobacco Cessation Counseling and Screening (12+) [code = Tobacco Cessation Counseling and Screening (12+)] [facility] Scheduled Test 2024-05-28 00:00:00 Tobacco Cessation Counseling and Screening (12+) [code = Tobacco Cessation Counseling and Screening (12+)] [facility] Scheduled Test 2024-05-28 00:00:00 Tobacco Cessation Counseling and Screening (12+) [code = Tobacco Cessation Counseling and Screening (12+)] [facility] Scheduled Test 2024-05-28 00:00:00 Tobacco Cessation Counseling and Screening (12+) [code = Tobacco Cessation Counseling and Screening (12+)] [facility] Scheduled Test 2024-05-28 00:00:00 Tobacco Cessation Counseling and Screening (12+) [code = Tobacco Cessation Counseling and Screening (12+)] [facility] Scheduled Test 2024-05-28 00:00:00 Tobacco Cessation Counseling and Screening (12+) [code = Tobacco Cessation Counseling and Screening (12+)] [facility] Scheduled Test 2024-05-28 00:00:00 Tobacco Cessation Counseling and Screening (12+) [code = Tobacco Cessation Counseling and Screening (12+)] [facility] Scheduled Test 2024-05-28 00:00:00 Tobacco Cessation Counseling and Screening (12+) [code = Tobacco Cessation Counseling and Screening (12+)] [facility] Scheduled Test 2024-05-28 00:00:00 Tobacco Cessation Counseling and Screening (12+) [code = Tobacco Cessation Counseling and Screening (12+)] [facility] Scheduled Test 2024-05-28 00:00:00 Tobacco Cessation Counseling and Screening (12+) [code = Tobacco Cessation Counseling and Screening (12+)] [facility] Scheduled Test 2024-05-28 00:00:00 Tobacco Cessation Counseling and Screening (12+) [code = Tobacco Cessation Counseling and Screening (12+)] [facility] Scheduled Test 2024-05-28 00:00:00 Tobacco Cessation Counseling and Screening (12+) [code = Tobacco Cessation Counseling and Screening (12+)] [facility] Scheduled Test 2024-05-28 00:00:00 Tobacco Cessation Counseling and Screening (12+) [code = Tobacco Cessation Counseling and Screening (12+)] [facility] Scheduled Test 2024-05-28 00:00:00 Tobacco Cessation Counseling and Screening (12+) [code = Tobacco Cessation Counseling and Screening (12+)] [facility] Scheduled Test 2024-05-28 00:00:00 Tobacco Cessation Counseling and Screening (12+) [code = Tobacco Cessation Counseling and Screening (12+)] [facility] Scheduled Test 2024-05-28 00:00:00 Tobacco Cessation Counseling and Screening (12+) [code = Tobacco Cessation Counseling and Screening (12+)] [facility] Scheduled Test 2024-05-28 00:00:00 Tobacco Cessation Counseling and Screening (12+) [code = Tobacco Cessation Counseling and Screening (12+)] [facility] Scheduled Test 2024-05-28 00:00:00 Tobacco Cessation Counseling and Screening (12+) [code = Tobacco Cessation Counseling and Screening (12+)] [facility] Scheduled Test 2024-05-28 00:00:00 Tobacco Cessation Counseling and Screening (12+) [code = Tobacco Cessation Counseling and Screening (12+)] [facility] Scheduled Test 2024-05-28 00:00:00 Tobacco Cessation Counseling and Screening (12+) [code = Tobacco Cessation Counseling and Screening (12+)] [facility] Scheduled Test 2024-05-28 00:00:00 Tobacco Cessation Counseling and Screening (12+) [code = Tobacco Cessation Counseling and Screening (12+)] [facility] Scheduled Test 2024-05-28 00:00:00 Tobacco Cessation Counseling and Screening (12+) [code = Tobacco Cessation Counseling and Screening (12+)] [facility] Scheduled Test 2024-05-28 00:00:00 Tobacco Cessation Counseling and Screening (12+) [code = Tobacco Cessation Counseling and Screening (12+)] [facility] Future Scheduled Test 2024-05-28 00:00:00 Tobacco Cessation Counseling and Screening (12+) [code = Tobacco Cessation Counseling and Screening (12+)] [facility] Scheduled Test 2024-05-28 00:00:00 Tobacco Cessation Counseling and Screening (12+) [code = Tobacco Cessation Counseling and Screening (12+)] [facility] Scheduled Test 2024-05-28 00:00:00 Tobacco Cessation Counseling and Screening (12+) [code = Tobacco Cessation Counseling and Screening (12+)] [facility] Scheduled Test 2024-05-28 00:00:00 Tobacco Cessation Counseling and Screening (12+) [code = Tobacco Cessation Counseling and Screening (12+)] [facility] Scheduled Test 2024-05-28 00:00:00 Tobacco Cessation Counseling and Screening (12+) [code = Tobacco Cessation Counseling and Screening (12+)] [facility] Scheduled Test 2024-05-28 00:00:00 Tobacco Cessation Counseling and Screening (12+) [code = Tobacco Cessation Counseling and Screening (12+)] [facility] Scheduled Test 2024-05-28 00:00:00 Tobacco Cessation Counseling and Screening (12+) [code = Tobacco Cessation Counseling and Screening (12+)] [facility] Scheduled Test 2024-05-28 00:00:00 Tobacco Cessation Counseling and Screening (12+) [code = Tobacco Cessation Counseling and Screening (12+)] [facility] Scheduled Test 2024-05-28 00:00:00 Tobacco Cessation Counseling and Screening (12+) [code = Tobacco Cessation Counseling and Screening (12+)] [facility] Future Scheduled Test 2024-05-28 00:00:00 Tobacco Cessation Counseling and Screening (12+) [code = Tobacco Cessation Counseling and Screening (12+)] [facility] Scheduled Test 2024-05-28 00:00:00 Tobacco Cessation Counseling and Screening (12+) [code = Tobacco Cessation Counseling and Screening (12+)] [facility] Scheduled Test 2024-05-28 00:00:00 Tobacco Cessation Counseling and Screening (12+) [code = Tobacco Cessation Counseling and Screening (12+)] [facility] Future Scheduled Test 2024-05-28 00:00:00 Tobacco Cessation Counseling and Screening (12+) [code = Tobacco Cessation Counseling and Screening (12+)] [facility] Future Scheduled Test 2024-05-28 00:00:00 Tobacco Cessation Counseling and Screening (12+) [code = Tobacco Cessation Counseling and Screening (12+)] [facility] Future Scheduled Test 2024-05-26 00:00:00 Tobacco Cessation Counseling and Screening (12+) [code = Tobacco Cessation Counseling and Screening (12+)] [facility] Future Scheduled Test 2024-05-26 00:00:00 Tobacco Cessation Counseling and Screening (12+) [code = Tobacco Cessation Counseling and Screening (12+)] [facility] Future Scheduled Test 2024-03-20 00:00:00 Influenza Vaccine (Season Ended) [code = Influenza Vaccine (Season Ended)] [facility] Future Scheduled Test 2024-03-20 00:00:00 Influenza Vaccine (Season Ended) [code = Influenza Vaccine (Season Ended)] [facility] Future Scheduled Test 2024-03-20 00:00:00 Influenza Vaccine (Season Ended) [code = Influenza Vaccine (Season Ended)] [facility] Future Scheduled Test 2024-03-20 00:00:00 Influenza Vaccine (Season Ended) [code = Influenza Vaccine (Season Ended)] [facility] Future Scheduled Test 2024-03-20 00:00:00 Influenza Vaccine (Season Ended) [code = Influenza Vaccine (Season Ended)] [facility] Future Scheduled Test 2024-03-20 00:00:00 Influenza Vaccine (Season Ended) [code = Influenza Vaccine (Season Ended)] [facility] Future Scheduled Test 2024-03-20 00:00:00 Influenza Vaccine (Season Ended) [code = Influenza Vaccine (Season Ended)] [facility] Future Scheduled Test 2024-03-20 00:00:00 Influenza Vaccine (Season Ended) [code = Influenza Vaccine (Season Ended)] [facility] Future Scheduled Test 2024-03-20 00:00:00 Influenza Vaccine (Season Ended) [code = Influenza Vaccine (Season Ended)] [facility] Future Scheduled Test 2024-03-20 00:00:00 Influenza Vaccine (Season Ended) [code = Influenza Vaccine (Season Ended)] [facility] Future Scheduled Test 2023-07-20 00:00:00 DEPRESSION SCREENING (12+) [code = DEPRESSION SCREENING (12+)] [facility] Future Scheduled Test 2023-07-20 00:00:00 DEPRESSION SCREENING (12+) [code = DEPRESSION SCREENING (12+)] [facility] Future Scheduled Test 2023-07-20 00:00:00 DEPRESSION SCREENING (12+) [code = DEPRESSION SCREENING (12+)] [facility] Future Scheduled Test 2023-07-20 00:00:00 DEPRESSION SCREENING (12+) [code = DEPRESSION SCREENING (12+)] [facility] Future Scheduled Test 2023-07-20 00:00:00 DEPRESSION SCREENING (12+) [code = DEPRESSION SCREENING (12+)] [facility] Future Scheduled Test 2023-07-20 00:00:00 DEPRESSION SCREENING (12+) [code = DEPRESSION SCREENING (12+)] [facility] Future Scheduled Test 2023-07-20 00:00:00 DEPRESSION SCREENING (12+) [code = DEPRESSION SCREENING (12+)] [facility] Future Scheduled Test 2023-07-20 00:00:00 DEPRESSION SCREENING (12+) [code = DEPRESSION SCREENING (12+)] [facility] Future Scheduled Test 2023-07-20 00:00:00 DEPRESSION SCREENING (12+) [code = DEPRESSION SCREENING (12+)] [facility] Future Scheduled Test 2023-07-20 00:00:00 DEPRESSION SCREENING (12+) [code = DEPRESSION SCREENING (12+)] [facility] Future Scheduled Test 2023-07-20 00:00:00 DEPRESSION SCREENING (12+) [code = DEPRESSION SCREENING (12+)] [facility] Future Scheduled Test 2023-07-20 00:00:00 DEPRESSION SCREENING (12+) [code = DEPRESSION SCREENING (12+)] [facility] Future Scheduled Test 2023-07-20 00:00:00 DEPRESSION SCREENING (12+) [code = DEPRESSION SCREENING (12+)] [facility] Future Scheduled Test 2023-07-20 00:00:00 DEPRESSION SCREENING (12+) [code = DEPRESSION SCREENING (12+)] [facility] Future Scheduled Test 2023-07-20 00:00:00 DEPRESSION SCREENING (12+) [code = DEPRESSION SCREENING (12+)] [facility] Future Scheduled Test 2023-07-20 00:00:00 DEPRESSION SCREENING (12+) [code = DEPRESSION SCREENING (12+)] [facility] Future Scheduled Test 2023-07-20 00:00:00 DEPRESSION SCREENING (12+) [code = DEPRESSION SCREENING (12+)] [facility] Future Scheduled Test 2023-07-20 00:00:00 DEPRESSION SCREENING (12+) [code = DEPRESSION SCREENING (12+)] [facility] Future Scheduled Test 2023-07-20 00:00:00 DEPRESSION SCREENING (12+) [code = DEPRESSION SCREENING (12+)] [facility] Future Scheduled Test 2023-07-20 00:00:00 DEPRESSION SCREENING (12+) [code = DEPRESSION SCREENING (12+)] [facility] Future Scheduled Test 2023-07-20 00:00:00 DEPRESSION SCREENING (12+) [code = DEPRESSION SCREENING (12+)] [facility] Future Scheduled Test 2023-07-20 00:00:00 DEPRESSION SCREENING (12+) [code = DEPRESSION SCREENING (12+)] [facility] Future Scheduled Test 2023-07-20 00:00:00 DEPRESSION SCREENING (12+) [code = DEPRESSION SCREENING (12+)] [facility] Future Scheduled Test 2023-07-20 00:00:00 DEPRESSION SCREENING (12+) [code = DEPRESSION SCREENING (12+)] [facility] Future Scheduled Test 2023-07-20 00:00:00 DEPRESSION SCREENING (12+) [code = DEPRESSION SCREENING (12+)] [facility] Future Scheduled Test 2023-07-20 00:00:00 DEPRESSION SCREENING (12+) [code = DEPRESSION SCREENING (12+)] [facility] Future Scheduled Test 2023-07-20 00:00:00 DEPRESSION SCREENING (12+) [code = DEPRESSION SCREENING (12+)] [facility] Future Scheduled Test 2023-07-20 00:00:00 DEPRESSION SCREENING (12+) [code = DEPRESSION SCREENING (12+)] [facility] Future Scheduled Test 2023-07-20 00:00:00 DEPRESSION SCREENING (12+) [code = DEPRESSION SCREENING (12+)] [facility] Future Scheduled Test 2023-07-20 00:00:00 DEPRESSION SCREENING (12+) [code = DEPRESSION SCREENING (12+)] [facility] Future Scheduled Test 2023-07-20 00:00:00 DEPRESSION SCREENING (12+) [code = DEPRESSION SCREENING (12+)] [facility] Future Scheduled Test 2023-07-20 00:00:00 DEPRESSION SCREENING (12+) [code = DEPRESSION SCREENING (12+)] [facility] Future Scheduled Test 2023-07-20 00:00:00 DEPRESSION SCREENING (12+) [code = DEPRESSION SCREENING (12+)] [facility] Future Scheduled Test 2023-07-20 00:00:00 DEPRESSION SCREENING (12+) [code = DEPRESSION SCREENING (12+)] [facility] Future Scheduled Test 2023-07-20 00:00:00 DEPRESSION SCREENING (12+) [code = DEPRESSION SCREENING (12+)] [facility] Future Scheduled Test 2023-07-20 00:00:00 DEPRESSION SCREENING (12+) [code = DEPRESSION SCREENING (12+)] [facility] Future Scheduled Test 2023-07-20 00:00:00 DEPRESSION SCREENING (12+) [code = DEPRESSION SCREENING (12+)] [facility] Future Scheduled Test 2023-03-20 00:00:00 INFLUENZA VACCINE (Season Ended) [code = INFLUENZA VACCINE (Season Ended)] [facility] Future Scheduled Test 2023-03-20 00:00:00 INFLUENZA VACCINE (Season Ended) [code = INFLUENZA VACCINE (Season Ended)] [facility] Future Scheduled Test 2023-03-20 00:00:00 INFLUENZA VACCINE (Season Ended) [code = INFLUENZA VACCINE (Season Ended)] [facility] Future Scheduled Test 2023-03-20 00:00:00 INFLUENZA VACCINE (Season Ended) [code = INFLUENZA VACCINE (Season Ended)] [facility] Future Scheduled Test 2023-03-20 00:00:00 INFLUENZA VACCINE (Season Ended) [code = INFLUENZA VACCINE (Season Ended)] [facility] Future Scheduled Test 2023-03-20 00:00:00 INFLUENZA VACCINE (Season Ended) [code = INFLUENZA VACCINE (Season Ended)] [facility] Future Scheduled Test 2023-03-20 00:00:00 Influenza Vaccine (Season Ended) [code = Influenza Vaccine (Season Ended)] [facility] Future Scheduled Test 2023-03-20 00:00:00 Influenza Vaccine (Season Ended) [code = Influenza Vaccine (Season Ended)] [facility] Future Scheduled Test 2023-03-20 00:00:00 Influenza Vaccine (#1) [code = Influenza Vaccine (#1)] [facility] Future Scheduled Test 2023-03-20 00:00:00 Influenza Vaccine (#1) [code = Influenza Vaccine (#1)] [facility] Future Scheduled Test 2023-03-20 00:00:00 Influenza Vaccine (#1) [code = Influenza Vaccine (#1)] [facility] Future Scheduled Test 2023-03-20 00:00:00 Influenza Vaccine (#1) [code = Influenza Vaccine (#1)] [facility] Future Scheduled Test 2023-03-20 00:00:00 COVID-19 VACCINE ( season) [code = COVID-19 VACCINE ( season)] [facility] Future Scheduled Test 2023-03-20 00:00:00 Influenza Vaccine (#1) [code = Influenza Vaccine (#1)] [facility] Future Scheduled Test 2023-03-20 00:00:00 COVID-19 VACCINE ( season) [code = COVID-19 VACCINE ( season)] [facility] Future Scheduled Test 2023-03-20 00:00:00 Influenza Vaccine (#1) [code = Influenza Vaccine (#1)] [facility] Future Scheduled Test 2023-03-20 00:00:00 COVID-19 VACCINE ( season) [code = COVID-19 VACCINE ( season)] [facility] Future Scheduled Test 2023-03-20 00:00:00 Influenza Vaccine (#1) [code = Influenza Vaccine (#1)] [facility] Future Scheduled Test 2023-03-20 00:00:00 COVID-19 VACCINE ( season) [code = COVID-19 VACCINE ()] [facility] Future Scheduled Test 2023-03-20 00:00:00 Influenza Vaccine (#1) [code = Influenza Vaccine (#1)] [facility] Future Scheduled Test 2023-03-20 00:00:00 Influenza Vaccine (#1) [code = Influenza Vaccine (#1)] [facility] Future Scheduled Test 2023-03-20 00:00:00 COVID-19 VACCINE () [code = COVID-19 VACCINE ()] [facility] Future Scheduled Test 2023-03-20 00:00:00 Influenza Vaccine (#1) [code = Influenza Vaccine (#1)] [facility] Future Scheduled Test 2023-03-20 00:00:00 COVID-19 VACCINE ( season) [code = COVID-19 VACCINE ()] [facility] Future Scheduled Test 2023-03-20 00:00:00 Influenza Vaccine (#1) [code = Influenza Vaccine (#1)] [facility] Future Scheduled Test 2023-03-20 00:00:00 COVID-19 VACCINE ( season) [code = COVID-19 VACCINE ( season)] [facility] Future Scheduled Test 2023-03-20 00:00:00 Influenza Vaccine (#1) [code = Influenza Vaccine (#1)] [facility] Future Scheduled Test 2023-03-20 00:00:00 COVID-19 VACCINE ( season) [code = COVID-19 VACCINE ()] [facility] Future Scheduled Test 2023-03-20 00:00:00 Influenza Vaccine (#1) [code = Influenza Vaccine (#1)] [facility] Future Scheduled Test 2023-03-20 00:00:00 COVID-19 VACCINE ( season) [code = COVID-19 VACCINE ( season)] [facility] Future Scheduled Test 2023-03-20 00:00:00 Influenza Vaccine (#1) [code = Influenza Vaccine (#1)] [facility] Future Scheduled Test 2023-03-20 00:00:00 COVID-19 VACCINE ( season) [code = COVID-19 VACCINE ()] [facility] Future Scheduled Test 2023-03-20 00:00:00 Influenza Vaccine (#1) [code = Influenza Vaccine (#1)] [facility] Future Scheduled Test 2023-03-20 00:00:00 COVID-19 VACCINE ( season) [code = COVID-19 VACCINE ()] [facility] Future Scheduled Test 2023-03-20 00:00:00 Influenza Vaccine (#1) [code = Influenza Vaccine (#1)] [facility] Future Scheduled Test 2023-03-20 00:00:00 Influenza Vaccine (#1) [code = Influenza Vaccine (#1)] [facility] Future Scheduled Test 2023-03-20 00:00:00 COVID-19 VACCINE ( season) [code = COVID-19 VACCINE ( season)] [facility] Future Scheduled Test 2023-03-20 00:00:00 Influenza Vaccine (#1) [code = Influenza Vaccine (#1)] [facility] Future Scheduled Test 2023-03-20 00:00:00 COVID-19 VACCINE ( season) [code = COVID-19 VACCINE ( season)] [facility] Future Scheduled Test 2023-03-20 00:00:00 Influenza Vaccine (#1) [code = Influenza Vaccine (#1)] [facility] Future Scheduled Test 2023-03-20 00:00:00 COVID-19 VACCINE ( season) [code = COVID-19 VACCINE ( season)] [facility] Future Scheduled Test 2023-03-20 00:00:00 Influenza Vaccine (#1) [code = Influenza Vaccine (#1)] [facility] Future Scheduled Test 2023-03-20 00:00:00 COVID-19 VACCINE ( season) [code = COVID-19 VACCINE ()] [facility] Future Scheduled Test 2023-03-20 00:00:00 Influenza Vaccine (#1) [code = Influenza Vaccine (#1)] [facility] Future Scheduled Test 2023-03-20 00:00:00 COVID-19 VACCINE () [code = COVID-19 VACCINE ()] [facility] Future Scheduled Test 2023-03-20 00:00:00 Influenza Vaccine (#1) [code = Influenza Vaccine (#1)] [facility] Future Scheduled Test 2023-03-20 00:00:00 COVID-19 VACCINE ( season) [code = COVID-19 VACCINE ( season)] [facility] Future Scheduled Test 2023-03-20 00:00:00 Influenza Vaccine (#1) [code = Influenza Vaccine (#1)] [facility] Future Scheduled Test 2023-03-20 00:00:00 Influenza Vaccine (#1) [code = Influenza Vaccine (#1)] [facility] Future Scheduled Test 2023-03-20 00:00:00 COVID-19 VACCINE ( season) [code = COVID-19 VACCINE ( season)] [facility] Future Scheduled Test 2023-03-20 00:00:00 Influenza Vaccine (#1) [code = Influenza Vaccine (#1)] [facility] Future Scheduled Test 2023-03-20 00:00:00 COVID-19 VACCINE ( season) [code = COVID-19 VACCINE ( season)] [facility] Future Scheduled Test 2023-03-20 00:00:00 Influenza Vaccine (#1) [code = Influenza Vaccine (#1)] [facility] Future Scheduled Test 2023-03-20 00:00:00 COVID-19 VACCINE ( season) [code = COVID-19 VACCINE ()] [facility] Future Scheduled Test 2023-03-20 00:00:00 Influenza Vaccine (#1) [code = Influenza Vaccine (#1)] [facility] Future Scheduled Test 2023-03-20 00:00:00 COVID-19 VACCINE ( season) [code = COVID-19 VACCINE ()] [facility] Future Scheduled Test 2023-03-20 00:00:00 Influenza Vaccine (#1) [code = Influenza Vaccine (#1)] [facility] Future Scheduled Test 2023-03-20 00:00:00 Influenza Vaccine (#1) [code = Influenza Vaccine (#1)] [facility] Future Scheduled Test 2023-03-20 00:00:00 COVID-19 VACCINE ( season) [code = COVID-19 VACCINE ()] [facility] Future Scheduled Test 2023-03-20 00:00:00 Influenza Vaccine (#1) [code = Influenza Vaccine (#1)] [facility] Future Scheduled Test 2023-03-20 00:00:00 COVID-19 VACCINE ( season) [code = COVID-19 VACCINE ()] [facility] Future Scheduled Test 2023-03-20 00:00:00 Influenza Vaccine (#1) [code = Influenza Vaccine (#1)] [facility] Future Scheduled Test 2023-03-20 00:00:00 COVID-19 VACCINE () [code = COVID-19 VACCINE ( season)] [facility] Future Scheduled Test 2023-03-20 00:00:00 Influenza Vaccine (#1) [code = Influenza Vaccine (#1)] [facility] Future Scheduled Test 2023-03-20 00:00:00 COVID-19 VACCINE ( season) [code = COVID-19 VACCINE ( season)] [facility] Future Scheduled Test 2023-03-20 00:00:00 Influenza Vaccine (#1) [code = Influenza Vaccine (#1)] [facility] Future Scheduled Test 2023-03-20 00:00:00 COVID-19 VACCINE ( season) [code = COVID-19 VACCINE ()] [facility] Future Scheduled Test 2023-03-20 00:00:00 Influenza Vaccine (#1) [code = Influenza Vaccine (#1)] [facility] Future Scheduled Test 2023-03-20 00:00:00 COVID-19 VACCINE ( season) [code = COVID-19 VACCINE ( season)] [facility] Future Scheduled Test 2023-03-20 00:00:00 Influenza Vaccine (#1) [code = Influenza Vaccine (#1)] [facility] Future Scheduled Test 2023-03-20 00:00:00 Influenza Vaccine (#1) [code = Influenza Vaccine (#1)] [facility] Future Scheduled Test 2023-03-20 00:00:00 COVID-19 VACCINE ( season) [code = COVID-19 VACCINE ( season)] [facility] Future Scheduled Test 2023-03-20 00:00:00 Influenza Vaccine (#1) [code = Influenza Vaccine (#1)] [facility] Future Scheduled Test 2023-03-20 00:00:00 COVID-19 VACCINE ( season) [code = COVID-19 VACCINE ()] [facility] Future Scheduled Test 2023-03-20 00:00:00 Influenza Vaccine (#1) [code = Influenza Vaccine (#1)] [facility] Future Scheduled Test 2023-03-20 00:00:00 COVID-19 VACCINE ( season) [code = COVID-19 VACCINE ()] [facility] Future Scheduled Test 2023-03-20 00:00:00 COVID-19 VACCINE ( season) [code = COVID-19 VACCINE ()] [facility] Future Scheduled Test 2023-03-20 00:00:00 COVID-19 VACCINE () [code = COVID-19 VACCINE ()] [facility] Future Scheduled Test 2023-03-20 00:00:00 COVID-19 VACCINE () [code = COVID-19 VACCINE ()] [facility] Future Scheduled Test 2023-03-20 00:00:00 COVID-19 VACCINE () [code = COVID-19 VACCINE ()] [facility] Future Scheduled Test 2023-03-20 00:00:00 COVID-19 VACCINE () [code = COVID-19 VACCINE ()] [facility] Future Scheduled Test 2023-03-20 00:00:00 Influenza Vaccine (#1) [code = Influenza Vaccine (#1)] [facility] Future Scheduled Test 2023-03-20 00:00:00 COVID-19 VACCINE ( season) [code = COVID-19 VACCINE ()] [facility] Future Scheduled Test 2023-03-20 00:00:00 COVID-19 VACCINE () [code = COVID-19 VACCINE ()] [facility] Future Scheduled Test 2023-03-20 00:00:00 COVID-19 VACCINE ( season) [code = COVID-19 VACCINE ( season)] [facility] Future Scheduled Test 2023-03-20 00:00:00 COVID-19 VACCINE ( season) [code = COVID-19 VACCINE ( season)] [facility] Future Scheduled Test 2023-03-20 00:00:00 Influenza Vaccine (#1) [code = Influenza Vaccine (#1)] [facility] Future Scheduled Test 2023-03-20 00:00:00 Influenza Vaccine (#1) [code = Influenza Vaccine (#1)] [facility] Future Scheduled Test 2023-03-20 00:00:00 Influenza Vaccine (#1) [code = Influenza Vaccine (#1)] [facility] Future Scheduled Test 2023-03-20 00:00:00 Influenza Vaccine (#1) [code = Influenza Vaccine (#1)] [facility] Future Scheduled Test 2023-03-20 00:00:00 Influenza Vaccine (#1) [code = Influenza Vaccine (#1)] [facility] Future Scheduled Test 2023-03-20 00:00:00 Influenza Vaccine (#1) [code = Influenza Vaccine (#1)] [facility] Future Scheduled Test 2023-03-20 00:00:00 Influenza Vaccine (#1) [code = Influenza Vaccine (#1)] [facility] Future Scheduled Test 2023-03-20 00:00:00 Influenza Vaccine (#1) [code = Influenza Vaccine (#1)] [facility] Future Scheduled Test 2023-03-20 00:00:00 Influenza Vaccine (#1) [code = Influenza Vaccine (#1)] [facility] Future Scheduled Test 2023-03-20 00:00:00 COVID-19 VACCINE ( season) [code = COVID-19 VACCINE ( season)] [facility] Future Scheduled Test 2022-07-20 00:00:00 DEPRESSION SCREENING (12+) [code = DEPRESSION SCREENING (12+)] [facility] Future Scheduled Test 2022-07-20 00:00:00 DEPRESSION SCREENING (12+) [code = DEPRESSION SCREENING (12+)] [facility] Future Scheduled Test 2022-07-20 00:00:00 DEPRESSION SCREENING (12+) [code = DEPRESSION SCREENING (12+)] [facility] Future Scheduled Test 2022-07-20 00:00:00 DEPRESSION SCREENING (12+) [code = DEPRESSION SCREENING (12+)] [facility] Future Scheduled Test 2022-07-20 00:00:00 DEPRESSION SCREENING (12+) [code = DEPRESSION SCREENING (12+)] [facility] Future Scheduled Test 2022-07-20 00:00:00 DEPRESSION SCREENING (12+) [code = DEPRESSION SCREENING (12+)] [facility] Future Scheduled Test 2022-07-20 00:00:00 DEPRESSION SCREENING (12+) [code = DEPRESSION SCREENING (12+)] [facility] Future Scheduled Test 2022-07-20 00:00:00 DEPRESSION SCREENING (12+) [code = DEPRESSION SCREENING (12+)] [facility] Future Scheduled Test 2022-07-20 00:00:00 DEPRESSION SCREENING (12+) [code = DEPRESSION SCREENING (12+)] [facility] Future Scheduled Test 2022-07-20 00:00:00 DEPRESSION SCREENING (12+) [code = DEPRESSION SCREENING (12+)] [facility] Future Scheduled Test 2022-07-20 00:00:00 DEPRESSION SCREENING (12+) [code = DEPRESSION SCREENING (12+)] [facility] Future Scheduled Test 2022-07-20 00:00:00 DEPRESSION SCREENING (12+) [code = DEPRESSION SCREENING (12+)] [facility] Future Scheduled Test 2022-07-20 00:00:00 DEPRESSION SCREENING (12+) [code = DEPRESSION SCREENING (12+)] [facility] Future Scheduled Test 2022-07-20 00:00:00 DEPRESSION SCREENING (12+) [code = DEPRESSION SCREENING (12+)] [facility] Future Scheduled Test 2022-07-20 00:00:00 DEPRESSION SCREENING (12+) [code = DEPRESSION SCREENING (12+)] [facility] Future Scheduled Test 2022-07-20 00:00:00 DEPRESSION SCREENING (12+) [code = DEPRESSION SCREENING (12+)] [facility] Future Scheduled Test 2022-07-20 00:00:00 DEPRESSION SCREENING (12+) [code = DEPRESSION SCREENING (12+)] [facility] Future Scheduled Test 2022-07-20 00:00:00 DEPRESSION SCREENING (12+) [code = DEPRESSION SCREENING (12+)] [facility] Future Scheduled Test 2022-07-20 00:00:00 DEPRESSION SCREENING (12+) [code = DEPRESSION SCREENING (12+)] [facility] Future Scheduled Test 2022-07-20 00:00:00 DEPRESSION SCREENING (12+) [code = DEPRESSION SCREENING (12+)] [facility] Future Scheduled Test 2022-07-20 00:00:00 DEPRESSION SCREENING (12+) [code = DEPRESSION SCREENING (12+)] [facility] Future Scheduled Test 2022-07-20 00:00:00 DEPRESSION SCREENING (12+) [code = DEPRESSION SCREENING (12+)] [facility] Future Scheduled Test 2022-07-20 00:00:00 DEPRESSION SCREENING (12+) [code = DEPRESSION SCREENING (12+)] [facility] Future Scheduled Test 2022-07-20 00:00:00 DEPRESSION SCREENING (12+) [code = DEPRESSION SCREENING (12+)] [facility] Future Scheduled Test 2022-07-20 00:00:00 DEPRESSION SCREENING (12+) [code = DEPRESSION SCREENING (12+)] [facility] Future Scheduled Test 2022-07-20 00:00:00 DEPRESSION SCREENING (12+) [code = DEPRESSION SCREENING (12+)] [facility] Future Scheduled Test 2022-07-20 00:00:00 DEPRESSION SCREENING (12+) [code = DEPRESSION SCREENING (12+)] [facility] Future Scheduled Test 2022-07-20 00:00:00 DEPRESSION SCREENING (12+) [code = DEPRESSION SCREENING (12+)] [facility] Future Scheduled Test 2022-07-20 00:00:00 DEPRESSION SCREENING (12+) [code = DEPRESSION SCREENING (12+)] [facility] Future Scheduled Test 2022-07-20 00:00:00 DEPRESSION SCREENING (12+) [code = DEPRESSION SCREENING (12+)] [facility] Future Scheduled Test 2022-07-20 00:00:00 DEPRESSION SCREENING (12+) [code = DEPRESSION SCREENING (12+)] [facility] Future Scheduled Test 2022-07-20 00:00:00 DEPRESSION SCREENING (12+) [code = DEPRESSION SCREENING (12+)] [facility] Future Scheduled Test 2022-07-20 00:00:00 DEPRESSION SCREENING (12+) [code = DEPRESSION SCREENING (12+)] [facility] Future Scheduled Test 2022-06-21 00:00:00 COVID-19 VACCINE (4 - Booster for Pfizer series) [code = COVID-19 VACCINE (4 - Booster for Pfizer series)] [facility] Future Scheduled Test 2022-06-21 00:00:00 COVID-19 VACCINE (4 - Booster for Pfizer series) [code = COVID-19 VACCINE (4 - Booster for Pfizer series)] [facility] Future Scheduled Test 2022-06-21 00:00:00 COVID-19 VACCINE (4 - Booster for Pfizer series) [code = COVID-19 VACCINE (4 - Booster for Pfizer series)] [facility] Future Scheduled Test 2022-06-21 00:00:00 COVID-19 VACCINE (4 - Booster for Pfizer series) [code = COVID-19 VACCINE (4 - Booster for Pfizer series)] [facility] Future Scheduled Test 2022-04-16 00:00:00 COVID-19 VACCINE (4 - Booster for Pfizer series) [code = COVID-19 VACCINE (4 - Booster for Pfizer series)] [facility] Future Scheduled Test 2022-04-16 00:00:00 COVID-19 VACCINE (4 - Booster for Pfizer series) [code = COVID-19 VACCINE (4 - Booster for Pfizer series)] [facility] Future Scheduled Test 2022-04-16 00:00:00 COVID-19 VACCINE (4 - Booster for Pfizer series) [code = COVID-19 VACCINE (4 - Booster for Pfizer series)] [facility] Future Scheduled Test 2022-04-16 00:00:00 COVID-19 VACCINE (4 - Booster for Pfizer series) [code = COVID-19 VACCINE (4 - Booster for Pfizer series)] [facility] Future Scheduled Test 2022-04-16 00:00:00 COVID-19 VACCINE (4 - Booster for Pfizer series) [code = COVID-19 VACCINE (4 - Booster for Pfizer series)] [facility] Future Scheduled Test 2022-04-16 00:00:00 COVID-19 VACCINE (4 - Booster for Pfizer series) [code = COVID-19 VACCINE (4 - Booster for Pfizer series)] [facility] Future Scheduled Test 2022-04-16 00:00:00 COVID-19 VACCINE (4 - Booster for Pfizer series) [code = COVID-19 VACCINE (4 - Booster for Pfizer series)] [facility] Future Scheduled Test 2022-04-16 00:00:00 COVID-19 VACCINE (4 - Booster for Pfizer series) [code = COVID-19 VACCINE (4 - Booster for Pfizer series)] [facility] Future Scheduled Test 2022-04-16 00:00:00 COVID-19 VACCINE (4 - Booster for Pfizer series) [code = COVID-19 VACCINE (4 - Booster for Pfizer series)] [facility] Future Scheduled Test 2022-04-16 00:00:00 COVID-19 VACCINE (4 - Booster for Pfizer series) [code = COVID-19 VACCINE (4 - Booster for Pfizer series)] [facility] Future Scheduled Test 2022-04-16 00:00:00 COVID-19 VACCINE (4 - Booster for Pfizer series) [code = COVID-19 VACCINE (4 - Booster for Pfizer series)] [facility] Future Scheduled Test 2022-04-16 00:00:00 COVID-19 VACCINE (4 - Booster for Pfizer series) [code = COVID-19 VACCINE (4 - Booster for Pfizer series)] [facility] Future Scheduled Test 2022-04-16 00:00:00 COVID-19 VACCINE (4 - Booster for Pfizer series) [code = COVID-19 VACCINE (4 - Booster for Pfizer series)] [facility] Future Scheduled Test 2022-04-16 00:00:00 COVID-19 VACCINE (4 - Booster for Pfizer series) [code = COVID-19 VACCINE (4 - Booster for Pfizer series)] [facility] Future Scheduled Test 2022-04-16 00:00:00 COVID-19 VACCINE (4 - Booster for Pfizer series) [code = COVID-19 VACCINE (4 - Booster for Pfizer series)] [facility] Future Scheduled Test 2022-04-16 00:00:00 COVID-19 VACCINE (4 - Booster for Pfizer series) [code = COVID-19 VACCINE (4 - Booster for Pfizer series)] [facility] Future Scheduled Test 2022-04-16 00:00:00 COVID-19 VACCINE (4 - Booster for Pfizer series) [code = COVID-19 VACCINE (4 - Booster for Pfizer series)] [facility] Future Scheduled Test 2022-04-16 00:00:00 COVID-19 VACCINE (4 - Booster for Pfizer series) [code = COVID-19 VACCINE (4 - Booster for Pfizer series)] [facility] Future Scheduled Test 2022-04-16 00:00:00 COVID-19 VACCINE (4 - Booster for Pfizer series) [code = COVID-19 VACCINE (4 - Booster for Pfizer series)] [facility] Future Scheduled Test 2022-04-16 00:00:00 COVID-19 VACCINE (4 - Booster for Pfizer series) [code = COVID-19 VACCINE (4 - Booster for Pfizer series)] [facility] Future Scheduled Test 2022-04-16 00:00:00 COVID-19 VACCINE (4 - Pfizer series) [code = COVID-19 VACCINE (4 - Pfizer series)] [facility] Future Scheduled Test 2022-04-16 00:00:00 COVID-19 VACCINE (4 - Pfizer series) [code = COVID-19 VACCINE (4 - Pfizer series)] [facility] Future Scheduled Test 2022-04-16 00:00:00 COVID-19 VACCINE (4 - Pfizer series) [code = COVID-19 VACCINE (4 - Pfizer series)] [facility] Future Scheduled Test 2022-04-16 00:00:00 COVID-19 VACCINE (4 - Pfizer series) [code = COVID-19 VACCINE (4 - Pfizer series)] [facility] Future Scheduled Test 2022-04-16 00:00:00 COVID-19 VACCINE (4 - Booster for Pfizer series) [code = COVID-19 VACCINE (4 - Booster for Pfizer series)] [facility] Future Scheduled Test 2022-04-16 00:00:00 COVID-19 VACCINE (4 - Pfizer series) [code = COVID-19 VACCINE (4 - Pfizer series)] [facility] Future Scheduled Test 2022-03-20 00:00:00 INFLUENZA VACCINE (#1) [code = INFLUENZA VACCINE (#1)] [facility] Future Scheduled Test 2022-03-20 00:00:00 INFLUENZA VACCINE (#1) [code = INFLUENZA VACCINE (#1)] [facility] Future Scheduled Test 2022-03-20 00:00:00 INFLUENZA VACCINE (#1) [code = INFLUENZA VACCINE (#1)] [facility] Future Scheduled Test 2022-03-20 00:00:00 INFLUENZA VACCINE (#1) [code = INFLUENZA VACCINE (#1)] [facility] Future Scheduled Test 2022-01-14 00:00:00 SHINGLES VACCINES (1 of 2) [code = SHINGLES VACCINES (1 of 2)] [facility] Future Scheduled Test 2022-01-14 00:00:00 SHINGLES VACCINES (1 of 2) [code = SHINGLES VACCINES (1 of 2)] [facility] Future Scheduled Test 2022-01-14 00:00:00 SHINGLES VACCINES (1 of 2) [code = SHINGLES VACCINES (1 of 2)] [facility] Future Scheduled Test 2022-01-14 00:00:00 SHINGLES VACCINES (1 of 2) [code = SHINGLES VACCINES (1 of 2)] [facility] Future Scheduled Test 2022-01-14 00:00:00 SHINGLES VACCINES (1 of 2) [code = SHINGLES VACCINES (1 of 2)] [facility] Future Scheduled Test 2022-01-14 00:00:00 SHINGLES VACCINES (1 of 2) [code = SHINGLES VACCINES (1 of 2)] [facility] Future Scheduled Test 2022-01-14 00:00:00 SHINGLES VACCINES (1 of 2) [code = SHINGLES VACCINES (1 of 2)] [facility] Future Scheduled Test 2022-01-14 00:00:00 SHINGLES VACCINES (1 of 2) [code = SHINGLES VACCINES (1 of 2)] [facility] Future Scheduled Test 2022-01-14 00:00:00 SHINGLES VACCINES (1 of 2) [code = SHINGLES VACCINES (1 of 2)] [facility] Future Scheduled Test 2022-01-14 00:00:00 SHINGLES VACCINES (1 of 2) [code = SHINGLES VACCINES (1 of 2)] [facility] Future Scheduled Test 2022-01-14 00:00:00 SHINGLES VACCINES (1 of 2) [code = SHINGLES VACCINES (1 of 2)] [facility] Future Scheduled Test 2022-01-14 00:00:00 SHINGLES VACCINES (1 of 2) [code = SHINGLES VACCINES (1 of 2)] [facility] Future Scheduled Test 2022-01-14 00:00:00 SHINGLES VACCINES (1 of 2) [code = SHINGLES VACCINES (1 of 2)] [facility] Future Scheduled Test 2022-01-14 00:00:00 SHINGLES VACCINES (1 of 2) [code = SHINGLES VACCINES (1 of 2)] [facility] Future Scheduled Test 2022-01-14 00:00:00 SHINGLES VACCINES (1 of 2) [code = SHINGLES VACCINES (1 of 2)] [facility] Future Scheduled Test 2022-01-14 00:00:00 Screening for malignant neoplasm of lung (procedure) [code = [id number]] [facility] Future Scheduled Test 2022-01-14 00:00:00 SHINGLES VACCINES (1 of 2) [code = SHINGLES VACCINES (1 of 2)] [facility] Future Scheduled Test 2022-01-14 00:00:00 Screening for malignant neoplasm of lung (procedure) [code = [id number]] [facility] Future Scheduled Test 2022-01-14 00:00:00 SHINGLES VACCINES (1 of 2) [code = SHINGLES VACCINES (1 of 2)] [facility] Future Scheduled Test 2022-01-14 00:00:00 Screening for malignant neoplasm of lung (procedure) [code = [id number]] [facility] Future Scheduled Test 2022-01-14 00:00:00 SHINGLES VACCINES (1 of 2) [code = SHINGLES VACCINES (1 of 2)] [facility] Future Scheduled Test 2022-01-14 00:00:00 Screening for malignant neoplasm of lung (procedure) [code = [id number]] [facility] Future Scheduled Test 2022-01-14 00:00:00 SHINGLES VACCINES (1 of 2) [code = SHINGLES VACCINES (1 of 2)] [facility] Future Scheduled Test 2022-01-14 00:00:00 Screening for malignant neoplasm of lung (procedure) [code = [id number]] [facility] Future Scheduled Test 2022-01-14 00:00:00 SHINGLES VACCINES (1 of 2) [code = SHINGLES VACCINES (1 of 2)] [facility] Future Scheduled Test 2022-01-14 00:00:00 Screening for malignant neoplasm of lung (procedure) [code = [id number]] [facility] Future Scheduled Test 2022-01-14 00:00:00 SHINGLES VACCINES (1 of 2) [code = SHINGLES VACCINES (1 of 2)] [facility] Future Scheduled Test 2022-01-14 00:00:00 Screening for malignant neoplasm of lung (procedure) [code = 398508349] [facility] Future Scheduled Test 2022-01-14 00:00:00 SHINGLES VACCINES (1 of 2) [code = SHINGLES VACCINES (1 of 2)] [facility] Future Scheduled Test 2022-01-14 00:00:00 Screening for malignant neoplasm of lung (procedure) [code = 292190230] [facility] Future Scheduled Test 2022-01-14 00:00:00 SHINGLES VACCINES (1 of 2) [code = SHINGLES VACCINES (1 of 2)] [facility] Future Scheduled Test 2022-01-14 00:00:00 Screening for malignant neoplasm of lung (procedure) [code = 935557347] [facility] Future Scheduled Test 2022-01-14 00:00:00 SHINGLES VACCINES (1 of 2) [code = SHINGLES VACCINES (1 of 2)] [facility] Future Scheduled Test 2022-01-14 00:00:00 Screening for malignant neoplasm of lung (procedure) [code = 826573453] [facility] Future Scheduled Test 2022-01-14 00:00:00 SHINGLES VACCINES (1 of 2) [code = SHINGLES VACCINES (1 of 2)] [facility] Future Scheduled Test 2022-01-14 00:00:00 Screening for malignant neoplasm of lung (procedure) [code = 889512972] [facility] Future Scheduled Test 2022-01-14 00:00:00 SHINGLES VACCINES (1 of 2) [code = SHINGLES VACCINES (1 of 2)] [facility] Future Scheduled Test 2022-01-14 00:00:00 Screening for malignant neoplasm of lung (procedure) [code = 126631154] [facility] Future Scheduled Test 2022-01-14 00:00:00 SHINGLES VACCINES (1 of 2) [code = SHINGLES VACCINES (1 of 2)] [facility] Future Scheduled Test 2022-01-14 00:00:00 Screening for malignant neoplasm of lung (procedure) [code = 680794196] [facility] Future Scheduled Test 2022-01-14 00:00:00 SHINGLES VACCINES (1 of 2) [code = SHINGLES VACCINES (1 of 2)] [facility] Future Scheduled Test 2022-01-14 00:00:00 Screening for malignant neoplasm of lung (procedure) [code = 927584028] [facility] Future Scheduled Test 2022-01-14 00:00:00 SHINGLES VACCINES (1 of 2) [code = SHINGLES VACCINES (1 of 2)] [facility] Future Scheduled Test 2022-01-14 00:00:00 Screening for malignant neoplasm of lung (procedure) [code = 846862578] [facility] Future Scheduled Test 2022-01-14 00:00:00 SHINGLES VACCINES (1 of 2) [code = SHINGLES VACCINES (1 of 2)] [facility] Future Scheduled Test 2022-01-14 00:00:00 Screening for malignant neoplasm of lung (procedure) [code = 788552054] [facility] Future Scheduled Test 2022-01-14 00:00:00 SHINGLES VACCINES (1 of 2) [code = SHINGLES VACCINES (1 of 2)] [facility] Future Scheduled Test 2022-01-14 00:00:00 Screening for malignant neoplasm of lung (procedure) [code = 129804681] [facility] Future Scheduled Test 2022-01-14 00:00:00 SHINGLES VACCINES (1 of 2) [code = SHINGLES VACCINES (1 of 2)] [facility] Future Scheduled Test 2022-01-14 00:00:00 Screening for malignant neoplasm of lung (procedure) [code = 734636462] [facility] Future Scheduled Test 2022-01-14 00:00:00 SHINGLES VACCINES (1 of 2) [code = SHINGLES VACCINES (1 of 2)] [facility] Future Scheduled Test 2022-01-14 00:00:00 Screening for malignant neoplasm of lung (procedure) [code = 200532943] [facility] Future Scheduled Test 2022-01-14 00:00:00 Screening for malignant neoplasm of lung (procedure) [code = 938388331] [facility] Future Scheduled Test 2022-01-14 00:00:00 SHINGLES VACCINES (1 of 2) [code = SHINGLES VACCINES (1 of 2)] [facility] Future Scheduled Test 2022-01-14 00:00:00 SHINGLES VACCINES (1 of 2) [code = SHINGLES VACCINES (1 of 2)] [facility] Future Scheduled Test 2022-01-14 00:00:00 Screening for malignant neoplasm of lung (procedure) [code = 987617246] [facility] Future Scheduled Test 2022-01-14 00:00:00 SHINGLES VACCINES (1 of 2) [code = SHINGLES VACCINES (1 of 2)] [facility] Future Scheduled Test 2022-01-14 00:00:00 Screening for malignant neoplasm of lung (procedure) [code = 351160369] [facility] Future Scheduled Test 2022-01-14 00:00:00 SHINGLES VACCINES (1 of 2) [code = SHINGLES VACCINES (1 of 2)] [facility] Future Scheduled Test 2022-01-14 00:00:00 Screening for malignant neoplasm of lung (procedure) [code = 768207563] [facility] Future Scheduled Test 2022-01-14 00:00:00 SHINGLES VACCINES (1 of 2) [code = SHINGLES VACCINES (1 of 2)] [facility] Future Scheduled Test 2022-01-14 00:00:00 Screening for malignant neoplasm of lung (procedure) [code = [id number]] [facility] Future Scheduled Test 2022-01-14 00:00:00 Screening for malignant neoplasm of lung (procedure) [code = [id number]] [facility] Future Scheduled Test 2022-01-14 00:00:00 SHINGLES VACCINES (1 of 2) [code = SHINGLES VACCINES (1 of 2)] [facility] Future Scheduled Test 2022-01-14 00:00:00 SHINGLES VACCINES (1 of 2) [code = SHINGLES VACCINES (1 of 2)] [facility] Future Scheduled Test 2022-01-14 00:00:00 Screening for malignant neoplasm of lung (procedure) [code = [id number]] [facility] Future Scheduled Test 2022-01-14 00:00:00 SHINGLES VACCINES (1 of 2) [code = SHINGLES VACCINES (1 of 2)] [facility] Future Scheduled Test 2022-01-14 00:00:00 Screening for malignant neoplasm of lung (procedure) [code = [id number]] [facility] Future Scheduled Test 2022-01-14 00:00:00 SHINGLES VACCINES (1 of 2) [code = SHINGLES VACCINES (1 of 2)] [facility] Future Scheduled Test 2022-01-14 00:00:00 Screening for malignant neoplasm of lung (procedure) [code = [id number]] [facility] Future Scheduled Test 2022-01-14 00:00:00 SHINGLES VACCINES (1 of 2) [code = SHINGLES VACCINES (1 of 2)] [facility] Future Scheduled Test 2022-01-14 00:00:00 Screening for malignant neoplasm of lung (procedure) [code = 608381184] [facility] Future Scheduled Test 2022-01-14 00:00:00 SHINGLES VACCINES (1 of 2) [code = SHINGLES VACCINES (1 of 2)] [facility] Future Scheduled Test 2022-01-14 00:00:00 Screening for malignant neoplasm of lung (procedure) [code = [id number]] [facility] Future Scheduled Test 2022-01-14 00:00:00 SHINGLES VACCINES (1 of 2) [code = SHINGLES VACCINES (1 of 2)] [facility] Future Scheduled Test 2022-01-14 00:00:00 Screening for malignant neoplasm of lung (procedure) [code = 797941709] [facility] Future Scheduled Test 2022-01-14 00:00:00 Screening for malignant neoplasm of lung (procedure) [code = [id number]] [facility] Future Scheduled Test 2022-01-14 00:00:00 SHINGLES VACCINES (1 of 2) [code = SHINGLES VACCINES (1 of 2)] [facility] Future Scheduled Test 2022-01-14 00:00:00 SHINGLES VACCINES (1 of 2) [code = SHINGLES VACCINES (1 of 2)] [facility] Future Scheduled Test 2022-01-14 00:00:00 Screening for malignant neoplasm of lung (procedure) [code = [id number]] [facility] Future Scheduled Test 2022-01-14 00:00:00 SHINGLES VACCINES (1 of 2) [code = SHINGLES VACCINES (1 of 2)] [facility] Future Scheduled Test 2022-01-14 00:00:00 Screening for malignant neoplasm of lung (procedure) [code = 311048431] [facility] Future Scheduled Test 2022-01-14 00:00:00 SHINGLES VACCINES (1 of 2) [code = SHINGLES VACCINES (1 of 2)] [facility] Future Scheduled Test 2022-01-14 00:00:00 Screening for malignant neoplasm of lung (procedure) [code = [id number]] [facility] Future Scheduled Test 2022-01-14 00:00:00 SHINGLES VACCINES (1 of 2) [code = SHINGLES VACCINES (1 of 2)] [facility] Future Scheduled Test 2022-01-14 00:00:00 Screening for malignant neoplasm of lung (procedure) [code = 682349032] [facility] Future Scheduled Test 2022-01-14 00:00:00 SHINGLES VACCINES (1 of 2) [code = SHINGLES VACCINES (1 of 2)] [facility] Future Scheduled Test 2022-01-14 00:00:00 Screening for malignant neoplasm of lung (procedure) [code = 973132051] [facility] Future Scheduled Test 2022-01-14 00:00:00 SHINGLES VACCINES (1 of 2) [code = SHINGLES VACCINES (1 of 2)] [facility] Future Scheduled Test 2022-01-14 00:00:00 Screening for malignant neoplasm of lung (procedure) [code = [id number]] [facility] Future Scheduled Test 2022-01-14 00:00:00 SHINGLES VACCINES (1 of 2) [code = SHINGLES VACCINES (1 of 2)] [facility] Future Scheduled Test 2022-01-14 00:00:00 Screening for malignant neoplasm of lung (procedure) [code = 880430213] [facility] Future Scheduled Test 2022-01-14 00:00:00 SHINGLES VACCINES (1 of 2) [code = SHINGLES VACCINES (1 of 2)] [facility] Future Scheduled Test 2022-01-14 00:00:00 Screening for malignant neoplasm of lung (procedure) [code = 186076480] [facility] Future Scheduled Test 2022-01-14 00:00:00 SHINGLES VACCINES (1 of 2) [code = SHINGLES VACCINES (1 of 2)] [facility] Future Scheduled Test 2022-01-14 00:00:00 Screening for malignant neoplasm of lung (procedure) [code = [id number]] [facility] Future Scheduled Test 2022-01-14 00:00:00 SHINGLES VACCINES (1 of 2) [code = SHINGLES VACCINES (1 of 2)] [facility] Future Scheduled Test 2022-01-14 00:00:00 Screening for malignant neoplasm of lung (procedure) [code = 979552765] [facility] Future Scheduled Test 2022-01-14 00:00:00 SHINGLES VACCINES (1 of 2) [code = SHINGLES VACCINES (1 of 2)] [facility] Future Scheduled Test 2022-01-14 00:00:00 Screening for malignant neoplasm of lung (procedure) [code = 059190160] [facility] Future Scheduled Test 2022-01-14 00:00:00 SHINGLES VACCINES (1 of 2) [code = SHINGLES VACCINES (1 of 2)] [facility] Future Scheduled Test 2022-01-14 00:00:00 Screening for malignant neoplasm of lung (procedure) [code = 648665611] [facility] Future Scheduled Test 2022-01-14 00:00:00 SHINGLES VACCINES (1 of 2) [code = SHINGLES VACCINES (1 of 2)] [facility] Future Scheduled Test 2022-01-14 00:00:00 Screening for malignant neoplasm of lung (procedure) [code = 809656891] [facility] Future Scheduled Test 2022-01-14 00:00:00 SHINGLES VACCINES (1 of 2) [code = SHINGLES VACCINES (1 of 2)] [facility] Future Scheduled Test 2022-01-14 00:00:00 Screening for malignant neoplasm of lung (procedure) [code = 673198631] [facility] Future Scheduled Test 2022-01-14 00:00:00 SHINGLES VACCINES (1 of 2) [code = SHINGLES VACCINES (1 of 2)] [facility] Future Scheduled Test 2022-01-14 00:00:00 SHINGLES VACCINES (1 of 2) [code = SHINGLES VACCINES (1 of 2)] [facility] Future Scheduled Test 2022-01-14 00:00:00 SHINGLES VACCINES (1 of 2) [code = SHINGLES VACCINES (1 of 2)] [facility] Future Scheduled Test 2022-01-14 00:00:00 Screening for malignant neoplasm of lung (procedure) [code = 277622811] [facility] Future Scheduled Test 2022-01-14 00:00:00 SHINGLES VACCINES (1 of 2) [code = SHINGLES VACCINES (1 of 2)] [facility] Future Scheduled Test 2022-01-14 00:00:00 Screening for malignant neoplasm of lung (procedure) [code = 772358676] [facility] Future Scheduled Test 2022-01-14 00:00:00 SHINGLES VACCINES (1 of 2) [code = SHINGLES VACCINES (1 of 2)] [facility] Future Scheduled Test 2022-01-14 00:00:00 Screening for malignant neoplasm of lung (procedure) [code = 678261558] [facility] Future Scheduled Test 2022-01-14 00:00:00 SHINGLES VACCINES (1 of 2) [code = SHINGLES VACCINES (1 of 2)] [facility] Future Scheduled Test 2022-01-14 00:00:00 Screening for malignant neoplasm of lung (procedure) [code = 729031448] [facility] Future Scheduled Test 2022-01-14 00:00:00 SHINGLES VACCINES (1 of 2) [code = SHINGLES VACCINES (1 of 2)] [facility] Future Scheduled Test 2022-01-14 00:00:00 Screening for malignant neoplasm of lung (procedure) [code = 683871119] [facility] Future Scheduled Test 2022-01-14 00:00:00 SHINGLES VACCINES (1 of 2) [code = SHINGLES VACCINES (1 of 2)] [facility] Future Scheduled Test 2022-01-14 00:00:00 Screening for malignant neoplasm of lung (procedure) [code = 357100472] [facility] Future Scheduled Test 2022-01-14 00:00:00 SHINGLES VACCINES (1 of 2) [code = SHINGLES VACCINES (1 of 2)] [facility] Future Scheduled Test 2022-01-14 00:00:00 Screening for malignant neoplasm of lung (procedure) [code = 071715103] [facility] Future Scheduled Test 2022-01-14 00:00:00 SHINGLES VACCINES (1 of 2) [code = SHINGLES VACCINES (1 of 2)] [facility] Future Scheduled Test 2013-12-15 00:00:00 PNEUMOCOCCAL VACCINE 0-64 YRS (2 - PCV) [code = PNEUMOCOCCAL VACCINE 0-64 YRS (2 - PCV)] [facility] Future Scheduled Test 2013-12-15 00:00:00 PNEUMOCOCCAL VACCINE 0-64 YRS (2 - PCV) [code = PNEUMOCOCCAL VACCINE 0-64 YRS (2 - PCV)] [facility] Future Scheduled Test 2013-12-15 00:00:00 PNEUMOCOCCAL VACCINE 0-64 YRS (2 - PCV) [code = PNEUMOCOCCAL VACCINE 0-64 YRS (2 - PCV)] [facility] Future Scheduled Test 2013-12-15 00:00:00 PNEUMOCOCCAL VACCINE 0-64 YRS (2 - PCV) [code = PNEUMOCOCCAL VACCINE 0-64 YRS (2 - PCV)] [facility] Future Scheduled Test 2013-12-15 00:00:00 Pneumococcal Vaccine: 0-64 Years (2 - PCV) [code = Pneumococcal Vaccine: 0-64 Years (2 - PCV)] [facility] Future Scheduled Test 2013-12-15 00:00:00 Pneumococcal Vaccine: 0-64 Years (2 - PCV) [code = Pneumococcal Vaccine: 0-64 Years (2 - PCV)] [facility] Future Scheduled Test 2013-12-15 00:00:00 Pneumococcal Vaccine: 0-64 Years (2 - PCV) [code = Pneumococcal Vaccine: 0-64 Years (2 - PCV)] [facility] Future Scheduled Test 2013-12-15 00:00:00 Pneumococcal Vaccine: 0-64 Years (2 - PCV) [code = Pneumococcal Vaccine: 0-64 Years (2 - PCV)] [facility] Future Scheduled Test 2013-12-15 00:00:00 Pneumococcal Vaccine: 0-64 Years (2 - PCV) [code = Pneumococcal Vaccine: 0-64 Years (2 - PCV)] [facility] Future Scheduled Test 2013-12-15 00:00:00 Pneumococcal Vaccine: 0-64 Years (2 - PCV) [code = Pneumococcal Vaccine: 0-64 Years (2 - PCV)] [facility] Future Scheduled Test 2013-12-15 00:00:00 Pneumococcal Vaccine: 0-64 Years (2 - PCV) [code = Pneumococcal Vaccine: 0-64 Years (2 - PCV)] [facility] Future Scheduled Test 2013-12-15 00:00:00 Pneumococcal Vaccine: 0-64 Years (2 - PCV) [code = Pneumococcal Vaccine: 0-64 Years (2 - PCV)] [facility] Future Scheduled Test 2013-12-15 00:00:00 Pneumococcal Vaccine: 0-64 Years (2 - PCV) [code = Pneumococcal Vaccine: 0-64 Years (2 - PCV)] [facility] Future Scheduled Test 2013-12-15 00:00:00 Pneumococcal Vaccine: 0-64 Years (2 - PCV) [code = Pneumococcal Vaccine: 0-64 Years (2 - PCV)] [facility] Future Scheduled Test 2013-12-15 00:00:00 Pneumococcal Vaccine: 0-64 Years (2 - PCV) [code = Pneumococcal Vaccine: 0-64 Years (2 - PCV)] [facility] Future Scheduled Test 2013-12-15 00:00:00 Pneumococcal Vaccine: 0-64 Years (2 - PCV) [code = Pneumococcal Vaccine: 0-64 Years (2 - PCV)] [facility] Future Scheduled Test 2013-12-15 00:00:00 Pneumococcal Vaccine: 0-64 Years (2 - PCV) [code = Pneumococcal Vaccine: 0-64 Years (2 - PCV)] [facility] Future Scheduled Test 2013-12-15 00:00:00 Pneumococcal Vaccine: 0-64 Years (2 - PCV) [code = Pneumococcal Vaccine: 0-64 Years (2 - PCV)] [facility] Future Scheduled Test 2013-12-15 00:00:00 Pneumococcal Vaccine: 0-64 Years (2 - PCV) [code = Pneumococcal Vaccine: 0-64 Years (2 - PCV)] [facility] Future Scheduled Test 2013-12-15 00:00:00 Pneumococcal Vaccine: 0-64 Years (2 - PCV) [code = Pneumococcal Vaccine: 0-64 Years (2 - PCV)] [facility] Future Scheduled Test 2013-12-15 00:00:00 Pneumococcal Vaccine: 0-64 Years (2 - PCV) [code = Pneumococcal Vaccine: 0-64 Years (2 - PCV)] [facility] Future Scheduled Test 2013-12-15 00:00:00 Pneumococcal Vaccine: 0-64 Years (2 - PCV) [code = Pneumococcal Vaccine: 0-64 Years (2 - PCV)] [facility] Future Scheduled Test 2013-12-15 00:00:00 Pneumococcal Vaccine: 0-64 Years (2 - PCV) [code = Pneumococcal Vaccine: 0-64 Years (2 - PCV)] [facility] Future Scheduled Test 2013-12-15 00:00:00 Pneumococcal Vaccine: 0-64 Years (2 - PCV) [code = Pneumococcal Vaccine: 0-64 Years (2 - PCV)] [facility] Future Scheduled Test 2013-12-15 00:00:00 Pneumococcal Vaccine: 0-64 Years (2 of 2 - PCV) [code = Pneumococcal Vaccine: 0-64 Years (2 of 2 - PCV)] [facility] Future Scheduled Test 2013-12-15 00:00:00 Pneumococcal Vaccine: 0-64 Years (2 of 2 - PCV) [code = Pneumococcal Vaccine: 0-64 Years (2 of 2 - PCV)] [facility] Future Scheduled Test 2013-12-15 00:00:00 Pneumococcal Vaccine: 0-64 Years (2 of 2 - PCV) [code = Pneumococcal Vaccine: 0-64 Years (2 of 2 - PCV)] [facility] Future Scheduled Test 2013-12-15 00:00:00 Pneumococcal Vaccine: 0-64 Years (2 of 2 - PCV) [code = Pneumococcal Vaccine: 0-64 Years (2 of 2 - PCV)] [facility] Future Scheduled Test 2013-12-15 00:00:00 Pneumococcal Vaccine: 0-64 Years (2 of 2 - PCV) [code = Pneumococcal Vaccine: 0-64 Years (2 of 2 - PCV)] [facility] Future Scheduled Test 2013-12-15 00:00:00 Pneumococcal Vaccine: 0-64 Years (2 of 2 - PCV) [code = Pneumococcal Vaccine: 0-64 Years (2 of 2 - PCV)] [facility] Future Scheduled Test 2013-12-15 00:00:00 Pneumococcal Vaccine: 0-64 Years (2 of 2 - PCV) [code = Pneumococcal Vaccine: 0-64 Years (2 of 2 - PCV)] [facility] Future Scheduled Test 2013-12-15 00:00:00 Pneumococcal Vaccine: 0-64 Years (2 of 2 - PCV) [code = Pneumococcal Vaccine: 0-64 Years (2 of 2 - PCV)] [facility] Future Scheduled Test 2013-12-15 00:00:00 Pneumococcal Vaccine: 0-64 Years (2 of 2 - PCV) [code = Pneumococcal Vaccine: 0-64 Years (2 of 2 - PCV)] [facility] Future Scheduled Test 2013-12-15 00:00:00 Pneumococcal Vaccine: 0-64 Years (2 of 2 - PCV) [code = Pneumococcal Vaccine: 0-64 Years (2 of 2 - PCV)] [facility] Future Scheduled Test 2013-12-15 00:00:00 Pneumococcal Vaccine: 0-64 Years (2 of 2 - PCV) [code = Pneumococcal Vaccine: 0-64 Years (2 of 2 - PCV)] [facility] Future Scheduled Test 2013-12-15 00:00:00 Pneumococcal Vaccine: 0-64 Years (2 of 2 - PCV) [code = Pneumococcal Vaccine: 0-64 Years (2 of 2 - PCV)] [facility] Future Scheduled Test 2013-12-15 00:00:00 Pneumococcal Vaccine: 0-64 Years (2 of 2 - PCV) [code = Pneumococcal Vaccine: 0-64 Years (2 of 2 - PCV)] [facility] Future Scheduled Test 2013-12-15 00:00:00 Pneumococcal Vaccine: 0-64 Years (2 of 2 - PCV) [code = Pneumococcal Vaccine: 0-64 Years (2 of 2 - PCV)] [facility] Future Scheduled Test 2013-12-15 00:00:00 Pneumococcal Vaccine: 0-64 Years (2 of 2 - PCV) [code = Pneumococcal Vaccine: 0-64 Years (2 of 2 - PCV)] [facility] Future Scheduled Test 2013-12-15 00:00:00 Pneumococcal Vaccine: 0-64 Years (2 of 2 - PCV) [code = Pneumococcal Vaccine: 0-64 Years (2 of 2 - PCV)] [facility] Future Scheduled Test 2013-12-15 00:00:00 Pneumococcal Vaccine: 0-64 Years (2 of 2 - PCV) [code = Pneumococcal Vaccine: 0-64 Years (2 of 2 - PCV)] [facility] Future Scheduled Test 2013-12-15 00:00:00 Pneumococcal Vaccine: 0-64 Years (2 of 2 - PCV) [code = Pneumococcal Vaccine: 0-64 Years (2 of 2 - PCV)] [facility] Future Scheduled Test 2013-12-15 00:00:00 Pneumococcal Vaccine: 0-64 Years (2 of 2 - PCV) [code = Pneumococcal Vaccine: 0-64 Years (2 of 2 - PCV)] [facility] Future Scheduled Test 2013-12-15 00:00:00 Pneumococcal Vaccine: 0-64 Years (2 - PCV) [code = Pneumococcal Vaccine: 0-64 Years (2 - PCV)] [facility] Future Scheduled Test 2013-12-15 00:00:00 Pneumococcal Vaccine: 0-64 Years (2 - PCV) [code = Pneumococcal Vaccine: 0-64 Years (2 - PCV)] [facility] Future Scheduled Test 2013-12-15 00:00:00 Pneumococcal Vaccine: 0-64 Years (2 - PCV) [code = Pneumococcal Vaccine: 0-64 Years (2 - PCV)] [facility] Future Scheduled Test 1993-01-14 00:00:00 Screening for malignant neoplasm of cervix (procedure) [code = [id number]] [facility] Future Scheduled Test 1993-01-14 00:00:00 Screening for malignant neoplasm of cervix (procedure) [code = [id number]] [facility] Future Scheduled Test 1993-01-14 00:00:00 Screening for malignant neoplasm of cervix (procedure) [code = 765849122] [facility] Future Scheduled Test 1993-01-14 00:00:00 Screening for malignant neoplasm of cervix (procedure) [code = 183483748] [facility] Future Scheduled Test 1993-01-14 00:00:00 Screening for malignant neoplasm of cervix (procedure) [code = [id number]] [facility] Future Scheduled Test 1993-01-14 00:00:00 Screening for malignant neoplasm of cervix (procedure) [code = 743866140] [facility] Future Scheduled Test 1993-01-14 00:00:00 Screening for malignant neoplasm of cervix (procedure) [code = 854996904] [facility] Future Scheduled Test 1993-01-14 00:00:00 Screening for malignant neoplasm of cervix (procedure) [code = 460511604] [facility] Future Scheduled Test 1993-01-14 00:00:00 Screening for malignant neoplasm of cervix (procedure) [code = 879860362] [facility] Future Scheduled Test 1993-01-14 00:00:00 Screening for malignant neoplasm of cervix (procedure) [code = [id number]] [facility] Future Scheduled Test 1993-01-14 00:00:00 Screening for malignant neoplasm of cervix (procedure) [code = [id number]] [facility] Future Scheduled Test 1993-01-14 00:00:00 Screening for malignant neoplasm of cervix (procedure) [code = 949851263] [facility] Future Scheduled Test 1993-01-14 00:00:00 Screening for malignant neoplasm of cervix (procedure) [code = 366505576] [facility] Future Scheduled Test 1993-01-14 00:00:00 Screening for malignant neoplasm of cervix (procedure) [code = 450111377] [facility] Future Scheduled Test 1993-01-14 00:00:00 Screening for malignant neoplasm of cervix (procedure) [code = 485202488] [facility] Future Scheduled Test 1993-01-14 00:00:00 Screening for malignant neoplasm of cervix (procedure) [code = 779106740] [facility] Future Scheduled Test 1993-01-14 00:00:00 Screening for malignant neoplasm of cervix (procedure) [code = 730633866] [facility] Future Scheduled Test 1993-01-14 00:00:00 Screening for malignant neoplasm of cervix (procedure) [code = 293246555] [facility] Future Scheduled Test 1993-01-14 00:00:00 Screening for malignant neoplasm of cervix (procedure) [code = 741531852] [facility] Future Scheduled Test 1993-01-14 00:00:00 Screening for malignant neoplasm of cervix (procedure) [code = 625071687] [facility] Future Scheduled Test 1993-01-14 00:00:00 Screening for malignant neoplasm of cervix (procedure) [code = 324404473] [facility] Future Scheduled Test 1993-01-14 00:00:00 Screening for malignant neoplasm of cervix (procedure) [code = 329060379] [facility] Future Scheduled Test 1993-01-14 00:00:00 Screening for malignant neoplasm of cervix (procedure) [code = 783938955] [facility] Future Scheduled Test 1993-01-14 00:00:00 Screening for malignant neoplasm of cervix (procedure) [code = 179746671] [facility] Future Scheduled Test 1993-01-14 00:00:00 Screening for malignant neoplasm of cervix (procedure) [code = 409381451] [facility] Future Scheduled Test 1993-01-14 00:00:00 Screening for malignant neoplasm of cervix (procedure) [code = 883809749] [facility] Future Scheduled Test 1993-01-14 00:00:00 Screening for malignant neoplasm of cervix (procedure) [code = 694174433] [facility] Future Scheduled Test 1993-01-14 00:00:00 Screening for malignant neoplasm of cervix (procedure) [code = 335285984] [facility] Future Scheduled Test 1993-01-14 00:00:00 Screening for malignant neoplasm of cervix (procedure) [code = 486183612] [facility] Future Scheduled Test 1993-01-14 00:00:00 Screening for malignant neoplasm of cervix (procedure) [code = 275441492] [facility] Future Scheduled Test 1993-01-14 00:00:00 Screening for malignant neoplasm of cervix (procedure) [code = 799305714] [facility] Future Scheduled Test 1993-01-14 00:00:00 Screening for malignant neoplasm of cervix (procedure) [code = [id number]] [facility] Future Scheduled Test 1993-01-14 00:00:00 Screening for malignant neoplasm of cervix (procedure) [code = 944335112] [facility] Future Scheduled Test 1993-01-14 00:00:00 Screening for malignant neoplasm of cervix (procedure) [code = 944545698] [facility] Future Scheduled Test 1993-01-14 00:00:00 Screening for malignant neoplasm of cervix (procedure) [code = 624382842] [facility] Future Scheduled Test 1993-01-14 00:00:00 Screening for malignant neoplasm of cervix (procedure) [code = 343562178] [facility] Future Scheduled Test 1993-01-14 00:00:00 Screening for malignant neoplasm of cervix (procedure) [code = 412060291] [facility] Future Scheduled Test 1993-01-14 00:00:00 Screening for malignant neoplasm of cervix (procedure) [code = 838731044] [facility] Future Scheduled Test 1993-01-14 00:00:00 Screening for malignant neoplasm of cervix (procedure) [code = 043217454] [facility] Future Scheduled Test 1993-01-14 00:00:00 Screening for malignant neoplasm of cervix (procedure) [code = 928184082] [facility] Future Scheduled Test 1993-01-14 00:00:00 Screening for malignant neoplasm of cervix (procedure) [code = 026854033] [facility] Future Scheduled Test 1993-01-14 00:00:00 Screening for malignant neoplasm of cervix (procedure) [code = [id number]] [facility] Future Scheduled Test 1993-01-14 00:00:00 Screening for malignant neoplasm of cervix (procedure) [code = 105662271] [facility] Future Scheduled Test 1993-01-14 00:00:00 Screening for malignant neoplasm of cervix (procedure) [code = 332670916] [facility] Future Scheduled Test 1993-01-14 00:00:00 Screening for malignant neoplasm of cervix (procedure) [code = 963045789] [facility] Future Scheduled Test 1993-01-14 00:00:00 Screening for malignant neoplasm of cervix (procedure) [code = 356542392] [facility] Future Scheduled Test 1993-01-14 00:00:00 Screening for malignant neoplasm of cervix (procedure) [code = 222100189] [facility] Future Scheduled Test 1993-01-14 00:00:00 Screening for malignant neoplasm of cervix (procedure) [code = [id number]] [facility] Future Scheduled Test 1993-01-14 00:00:00 Screening for malignant neoplasm of cervix (procedure) [code = [id number]] [facility] Future Scheduled Test 1993-01-14 00:00:00 Screening for malignant neoplasm of cervix (procedure) [code = [id number]] [facility] Future Scheduled Test 1993-01-14 00:00:00 Screening for malignant neoplasm of cervix (procedure) [code = [id number]] [facility] Future Scheduled Test 1993-01-14 00:00:00 Screening for malignant neoplasm of cervix (procedure) [code = [id number]] [facility] Future Scheduled Test 1993-01-14 00:00:00 Screening for malignant neoplasm of cervix (procedure) [code = [id number]] [facility] Future Scheduled Test 1993-01-14 00:00:00 Screening for malignant neoplasm of cervix (procedure) [code = [id number]] [facility] Future Scheduled Test 1993-01-14 00:00:00 Screening for malignant neoplasm of cervix (procedure) [code = [id number]] [facility] Future Scheduled Test 1993-01-14 00:00:00 Screening for malignant neoplasm of cervix (procedure) [code = [id number]] [facility] Future Scheduled Test 1993-01-14 00:00:00 Screening for malignant neoplasm of cervix (procedure) [code = [id number]] [facility] Future Scheduled Test 1993-01-14 00:00:00 Screening for malignant neoplasm of cervix (procedure) [code = [id number]] [facility] Future Scheduled Test 1993-01-14 00:00:00 Screening for malignant neoplasm of cervix (procedure) [code = [id number]] [facility] Future Scheduled Test 1993-01-14 00:00:00 Screening for malignant neoplasm of cervix (procedure) [code = [id number]] [facility] Future Scheduled Test 1993-01-14 00:00:00 Screening for malignant neoplasm of cervix (procedure) [code = [id number]] [facility] Future Scheduled Test 1993-01-14 00:00:00 Screening for malignant neoplasm of cervix (procedure) [code = [id number]] [facility] Future Scheduled Test 1993-01-14 00:00:00 Screening for malignant neoplasm of cervix (procedure) [code = [id number]] [facility] Future Scheduled Test 1993-01-14 00:00:00 Screening for malignant neoplasm of cervix (procedure) [code = [id number]] [facility] Future Scheduled Test 1993-01-14 00:00:00 Screening for malignant neoplasm of cervix (procedure) [code = [id number]] [facility] Future Scheduled Test 1993-01-14 00:00:00 Screening for malignant neoplasm of cervix (procedure) [code = [id number]] [facility] Future Scheduled Test 1993-01-14 00:00:00 Screening for malignant neoplasm of cervix (procedure) [code = [id number]] [facility] Future Scheduled Test 1993-01-14 00:00:00 Screening for malignant neoplasm of cervix (procedure) [code = [id number]] [facility] Future Scheduled Test 1993-01-14 00:00:00 Screening for malignant neoplasm of cervix (procedure) [code = [id number]] [facility] Future Scheduled Test 1993-01-14 00:00:00 Screening for malignant neoplasm of cervix (procedure) [code = 378779440] [facility] Future Scheduled Test 1991-01-14 00:00:00 DTAP/TDAP/TD VACCINES (1 - Tdap) [code = DTAP/TDAP/TD VACCINES (1 - Tdap)] [facility] Future Scheduled Test 1991-01-14 00:00:00 DTAP/TDAP/TD VACCINES (1 - Tdap) [code = DTAP/TDAP/TD VACCINES (1 - Tdap)] [facility] Future Scheduled Test 1991-01-14 00:00:00 DTAP/TDAP/TD VACCINES (1 - Tdap) [code = DTAP/TDAP/TD VACCINES (1 - Tdap)] [facility] Future Scheduled Test 1991-01-14 00:00:00 DTAP/TDAP/TD VACCINES (1 - Tdap) [code = DTAP/TDAP/TD VACCINES (1 - Tdap)] [facility] Future Scheduled Test 1991-01-14 00:00:00 DTAP/TDAP/TD VACCINES (1 - Tdap) [code = DTAP/TDAP/TD VACCINES (1 - Tdap)] [facility] Future Scheduled Test 1991-01-14 00:00:00 DTAP/TDAP/TD VACCINES (1 - Tdap) [code = DTAP/TDAP/TD VACCINES (1 - Tdap)] [facility] Future Scheduled Test 1991-01-14 00:00:00 DTAP/TDAP/TD VACCINES (1 - Tdap) [code = DTAP/TDAP/TD VACCINES (1 - Tdap)] [facility] Future Scheduled Test 1991-01-14 00:00:00 DTAP/TDAP/TD VACCINES (1 - Tdap) [code = DTAP/TDAP/TD VACCINES (1 - Tdap)] [facility] Future Scheduled Test 1991-01-14 00:00:00 DTAP/TDAP/TD VACCINES (1 - Tdap) [code = DTAP/TDAP/TD VACCINES (1 - Tdap)] [facility] Future Scheduled Test 1991-01-14 00:00:00 DTAP/TDAP/TD VACCINES (1 - Tdap) [code = DTAP/TDAP/TD VACCINES (1 - Tdap)] [facility] Future Scheduled Test 1991-01-14 00:00:00 DTAP/TDAP/TD VACCINES (1 - Tdap) [code = DTAP/TDAP/TD VACCINES (1 - Tdap)] [facility] Future Scheduled Test 1991-01-14 00:00:00 DTAP/TDAP/TD VACCINES (1 - Tdap) [code = DTAP/TDAP/TD VACCINES (1 - Tdap)] [facility] Future Scheduled Test 1991-01-14 00:00:00 DTAP/TDAP/TD VACCINES (1 - Tdap) [code = DTAP/TDAP/TD VACCINES (1 - Tdap)] [facility] Future Scheduled Test 1991-01-14 00:00:00 DTAP/TDAP/TD VACCINES (1 - Tdap) [code = DTAP/TDAP/TD VACCINES (1 - Tdap)] [facility] Future Scheduled Test 1991-01-14 00:00:00 DTAP/TDAP/TD VACCINES (1 - Tdap) [code = DTAP/TDAP/TD VACCINES (1 - Tdap)] [facility] Future Scheduled Test 1991-01-14 00:00:00 DTAP/TDAP/TD VACCINES (1 - Tdap) [code = DTAP/TDAP/TD VACCINES (1 - Tdap)] [facility] Future Scheduled Test 1991-01-14 00:00:00 DTAP/TDAP/TD VACCINES (1 - Tdap) [code = DTAP/TDAP/TD VACCINES (1 - Tdap)] [facility] Future Scheduled Test 1991-01-14 00:00:00 DTAP/TDAP/TD VACCINES (1 - Tdap) [code = DTAP/TDAP/TD VACCINES (1 - Tdap)] [facility] Future Scheduled Test 1991-01-14 00:00:00 DTAP/TDAP/TD VACCINES (1 - Tdap) [code = DTAP/TDAP/TD VACCINES (1 - Tdap)] [facility] Future Scheduled Test 1991-01-14 00:00:00 DTAP/TDAP/TD VACCINES (1 - Tdap) [code = DTAP/TDAP/TD VACCINES (1 - Tdap)] [facility] Future Scheduled Test 1991-01-14 00:00:00 DTAP/TDAP/TD VACCINES (1 - Tdap) [code = DTAP/TDAP/TD VACCINES (1 - Tdap)] [facility] Future Scheduled Test 1991-01-14 00:00:00 DTAP/TDAP/TD VACCINES (1 - Tdap) [code = DTAP/TDAP/TD VACCINES (1 - Tdap)] [facility] Future Scheduled Test 1991-01-14 00:00:00 DTAP/TDAP/TD VACCINES (1 - Tdap) [code = DTAP/TDAP/TD VACCINES (1 - Tdap)] [facility] Future Scheduled Test 1991-01-14 00:00:00 DTAP/TDAP/TD VACCINES (1 - Tdap) [code = DTAP/TDAP/TD VACCINES (1 - Tdap)] [facility] Future Scheduled Test 1991-01-14 00:00:00 DTAP/TDAP/TD VACCINES (1 - Tdap) [code = DTAP/TDAP/TD VACCINES (1 - Tdap)] [facility] Future Scheduled Test 1991-01-14 00:00:00 DTAP/TDAP/TD VACCINES (1 - Tdap) [code = DTAP/TDAP/TD VACCINES (1 - Tdap)] [facility] Future Scheduled Test 1991-01-14 00:00:00 DTAP/TDAP/TD VACCINES (1 - Tdap) [code = DTAP/TDAP/TD VACCINES (1 - Tdap)] [facility] Future Scheduled Test 1991-01-14 00:00:00 DTAP/TDAP/TD VACCINES (1 - Tdap) [code = DTAP/TDAP/TD VACCINES (1 - Tdap)] [facility] Future Scheduled Test 1991-01-14 00:00:00 DTAP/TDAP/TD VACCINES (1 - Tdap) [code = DTAP/TDAP/TD VACCINES (1 - Tdap)] [facility] Future Scheduled Test 1991-01-14 00:00:00 DTAP/TDAP/TD VACCINES (1 - Tdap) [code = DTAP/TDAP/TD VACCINES (1 - Tdap)] [facility] Future Scheduled Test 1991-01-14 00:00:00 DTAP/TDAP/TD VACCINES (1 - Tdap) [code = DTAP/TDAP/TD VACCINES (1 - Tdap)] [facility] Future Scheduled Test 1991-01-14 00:00:00 DTAP/TDAP/TD VACCINES (1 - Tdap) [code = DTAP/TDAP/TD VACCINES (1 - Tdap)] [facility] Future Scheduled Test 1991-01-14 00:00:00 DTAP/TDAP/TD VACCINES (1 - Tdap) [code = DTAP/TDAP/TD VACCINES (1 - Tdap)] [facility] Future Scheduled Test 1991-01-14 00:00:00 DTAP/TDAP/TD VACCINES (1 - Tdap) [code = DTAP/TDAP/TD VACCINES (1 - Tdap)] [facility] Future Scheduled Test 1991-01-14 00:00:00 DTAP/TDAP/TD VACCINES (1 - Tdap) [code = DTAP/TDAP/TD VACCINES (1 - Tdap)] [facility] Future Scheduled Test 1991-01-14 00:00:00 DTAP/TDAP/TD VACCINES (1 - Tdap) [code = DTAP/TDAP/TD VACCINES (1 - Tdap)] [facility] Future Scheduled Test 1991-01-14 00:00:00 DTAP/TDAP/TD VACCINES (1 - Tdap) [code = DTAP/TDAP/TD VACCINES (1 - Tdap)] [facility] Future Scheduled Test 1991-01-14 00:00:00 DTAP/TDAP/TD VACCINES (1 - Tdap) [code = DTAP/TDAP/TD VACCINES (1 - Tdap)] [facility] Future Scheduled Test 1991-01-14 00:00:00 DTAP/TDAP/TD VACCINES (1 - Tdap) [code = DTAP/TDAP/TD VACCINES (1 - Tdap)] [facility] Future Scheduled Test 1991-01-14 00:00:00 DTAP/TDAP/TD VACCINES (1 - Tdap) [code = DTAP/TDAP/TD VACCINES (1 - Tdap)] [facility] Future Scheduled Test 1991-01-14 00:00:00 DTAP/TDAP/TD VACCINES (1 - Tdap) [code = DTAP/TDAP/TD VACCINES (1 - Tdap)] [facility] Future Scheduled Test 1991-01-14 00:00:00 DTAP/TDAP/TD VACCINES (1 - Tdap) [code = DTAP/TDAP/TD VACCINES (1 - Tdap)] [facility] Future Scheduled Test 1991-01-14 00:00:00 DTAP/TDAP/TD VACCINES (1 - Tdap) [code = DTAP/TDAP/TD VACCINES (1 - Tdap)] [facility] Future Scheduled Test 1991-01-14 00:00:00 DTAP/TDAP/TD VACCINES (1 - Tdap) [code = DTAP/TDAP/TD VACCINES (1 - Tdap)] [facility] Future Scheduled Test 1991-01-14 00:00:00 DTAP/TDAP/TD VACCINES (1 - Tdap) [code = DTAP/TDAP/TD VACCINES (1 - Tdap)] [facility] Future Scheduled Test 1991-01-14 00:00:00 DTAP/TDAP/TD VACCINES (1 - Tdap) [code = DTAP/TDAP/TD VACCINES (1 - Tdap)] [facility] Future Scheduled Test 1991-01-14 00:00:00 DTAP/TDAP/TD VACCINES (1 - Tdap) [code = DTAP/TDAP/TD VACCINES (1 - Tdap)] [facility] Future Scheduled Test 1991-01-14 00:00:00 DTAP/TDAP/TD VACCINES (1 - Tdap) [code = DTAP/TDAP/TD VACCINES (1 - Tdap)] [facility] Future Scheduled Test 1991-01-14 00:00:00 DTAP/TDAP/TD VACCINES (1 - Tdap) [code = DTAP/TDAP/TD VACCINES (1 - Tdap)] [facility] Future Scheduled Test 1991-01-14 00:00:00 DTAP/TDAP/TD VACCINES (1 - Tdap) [code = DTAP/TDAP/TD VACCINES (1 - Tdap)] [facility] Future Scheduled Test 1991-01-14 00:00:00 DTAP/TDAP/TD VACCINES (1 - Tdap) [code = DTAP/TDAP/TD VACCINES (1 - Tdap)] [facility] Future Scheduled Test 1991-01-14 00:00:00 DTAP/TDAP/TD VACCINES (1 - Tdap) [code = DTAP/TDAP/TD VACCINES (1 - Tdap)] [facility] Future Scheduled Test 1991-01-14 00:00:00 DTAP/TDAP/TD VACCINES (1 - Tdap) [code = DTAP/TDAP/TD VACCINES (1 - Tdap)] [facility] Future Scheduled Test 1991-01-14 00:00:00 DTAP/TDAP/TD VACCINES (1 - Tdap) [code = DTAP/TDAP/TD VACCINES (1 - Tdap)] [facility] Future Scheduled Test 1991-01-14 00:00:00 DTAP/TDAP/TD VACCINES (1 - Tdap) [code = DTAP/TDAP/TD VACCINES (1 - Tdap)] [facility] Future Scheduled Test 1991-01-14 00:00:00 DTAP/TDAP/TD VACCINES (1 - Tdap) [code = DTAP/TDAP/TD VACCINES (1 - Tdap)] [facility] Future Scheduled Test 1991-01-14 00:00:00 DTAP/TDAP/TD VACCINES (1 - Tdap) [code = DTAP/TDAP/TD VACCINES (1 - Tdap)] [facility] Future Scheduled Test 1991-01-14 00:00:00 DTAP/TDAP/TD VACCINES (1 - Tdap) [code = DTAP/TDAP/TD VACCINES (1 - Tdap)] [facility] Future Scheduled Test 1991-01-14 00:00:00 DTAP/TDAP/TD VACCINES (1 - Tdap) [code = DTAP/TDAP/TD VACCINES (1 - Tdap)] [facility] Future Scheduled Test 1991-01-14 00:00:00 DTAP/TDAP/TD VACCINES (1 - Tdap) [code = DTAP/TDAP/TD VACCINES (1 - Tdap)] [facility] Future Scheduled Test 1991-01-14 00:00:00 DTAP/TDAP/TD VACCINES (1 - Tdap) [code = DTAP/TDAP/TD VACCINES (1 - Tdap)] [facility] Future Scheduled Test 1991-01-14 00:00:00 DTAP/TDAP/TD VACCINES (1 - Tdap) [code = DTAP/TDAP/TD VACCINES (1 - Tdap)] [facility] Future Scheduled Test 1991-01-14 00:00:00 DTAP/TDAP/TD VACCINES (1 - Tdap) [code = DTAP/TDAP/TD VACCINES (1 - Tdap)] [facility] Future Scheduled Test 1991-01-14 00:00:00 DTAP/TDAP/TD VACCINES (1 - Tdap) [code = DTAP/TDAP/TD VACCINES (1 - Tdap)] [facility] Future Scheduled Test 1991-01-14 00:00:00 DTAP/TDAP/TD VACCINES (1 - Tdap) [code = DTAP/TDAP/TD VACCINES (1 - Tdap)] [facility] Future Scheduled Test 1991-01-14 00:00:00 DTAP/TDAP/TD VACCINES (1 - Tdap) [code = DTAP/TDAP/TD VACCINES (1 - Tdap)] [facility] Future Scheduled Test 1991-01-14 00:00:00 DTAP/TDAP/TD VACCINES (1 - Tdap) [code = DTAP/TDAP/TD VACCINES (1 - Tdap)] [facility] Future Scheduled Test 1991-01-14 00:00:00 DTAP/TDAP/TD VACCINES (1 - Tdap) [code = DTAP/TDAP/TD VACCINES (1 - Tdap)] [facility] Future Scheduled Test 1991-01-14 00:00:00 DTAP/TDAP/TD VACCINES (1 - Tdap) [code = DTAP/TDAP/TD VACCINES (1 - Tdap)] [facility] Future Scheduled Test 1991-01-14 00:00:00 DTAP/TDAP/TD VACCINES (1 - Tdap) [code = DTAP/TDAP/TD VACCINES (1 - Tdap)] [facility] Future Scheduled Test 1990-01-14 00:00:00 HEPATITIS C SCREENING [code = HEPATITIS C SCREENING] [facility] Future Scheduled Test 1990-01-14 00:00:00 HEPATITIS C SCREENING [code = HEPATITIS C SCREENING] [facility] Future Scheduled Test 1990-01-14 00:00:00 HEPATITIS C SCREENING [code = HEPATITIS C SCREENING] [facility] Future Scheduled Test 1990-01-14 00:00:00 HEPATITIS C SCREENING [code = HEPATITIS C SCREENING] [facility] Future Scheduled Test 1990-01-14 00:00:00 HEPATITIS C SCREENING [code = HEPATITIS C SCREENING] [facility] Future Scheduled Test 1990-01-14 00:00:00 HEPATITIS C SCREENING [code = HEPATITIS C SCREENING] [facility] Future Scheduled Test 1990-01-14 00:00:00 HEPATITIS C SCREENING [code = HEPATITIS C SCREENING] [facility] Future Scheduled Test 1990-01-14 00:00:00 HEPATITIS C SCREENING [code = HEPATITIS C SCREENING] [facility] Future Scheduled Test 1990-01-14 00:00:00 HEPATITIS C SCREENING [code = HEPATITIS C SCREENING] [facility] Future Scheduled Test 1990-01-14 00:00:00 HEPATITIS C SCREENING [code = HEPATITIS C SCREENING] [facility] Future Scheduled Test 1990-01-14 00:00:00 HEPATITIS C SCREENING [code = HEPATITIS C SCREENING] [facility] Future Scheduled Test 1990-01-14 00:00:00 HEPATITIS C SCREENING [code = HEPATITIS C SCREENING] [facility] Future Scheduled Test 1990-01-14 00:00:00 HEPATITIS C SCREENING [code = HEPATITIS C SCREENING] [facility] Future Scheduled Test 1990-01-14 00:00:00 HEPATITIS C SCREENING [code = HEPATITIS C SCREENING] [facility] Future Scheduled Test 1990-01-14 00:00:00 HEPATITIS C SCREENING [code = HEPATITIS C SCREENING] [facility] Future Scheduled Test 1990-01-14 00:00:00 HEPATITIS C SCREENING [code = HEPATITIS C SCREENING] [facility] Future Scheduled Test 1990-01-14 00:00:00 HEPATITIS C SCREENING [code = HEPATITIS C SCREENING] [facility] Future Scheduled Test 1990-01-14 00:00:00 HEPATITIS C SCREENING [code = HEPATITIS C SCREENING] [facility] Future Scheduled Test 1990-01-14 00:00:00 HEPATITIS C SCREENING [code = HEPATITIS C SCREENING] [facility] Future Scheduled Test 1990-01-14 00:00:00 HEPATITIS C SCREENING [code = HEPATITIS C SCREENING] [facility] Future Scheduled Test 1990-01-14 00:00:00 HEPATITIS C SCREENING [code = HEPATITIS C SCREENING] [facility] Future Scheduled Test 1990-01-14 00:00:00 HEPATITIS C SCREENING [code = HEPATITIS C SCREENING] [facility] Future Scheduled Test 1990-01-14 00:00:00 HEPATITIS C SCREENING [code = HEPATITIS C SCREENING] [facility] Future Scheduled Test 1990-01-14 00:00:00 HEPATITIS C SCREENING [code = HEPATITIS C SCREENING] [facility] Future Scheduled Test 1990-01-14 00:00:00 HEPATITIS C SCREENING [code = HEPATITIS C SCREENING] [facility] Future Scheduled Test 1990-01-14 00:00:00 HEPATITIS C SCREENING [code = HEPATITIS C SCREENING] [facility] Future Scheduled Test 1990-01-14 00:00:00 HEPATITIS C SCREENING [code = HEPATITIS C SCREENING] [facility] Future Scheduled Test 1990-01-14 00:00:00 HEPATITIS C SCREENING [code = HEPATITIS C SCREENING] [facility] Future Scheduled Test 1990-01-14 00:00:00 HEPATITIS C SCREENING [code = HEPATITIS C SCREENING] [facility] Future Scheduled Test 1990-01-14 00:00:00 HEPATITIS C SCREENING [code = HEPATITIS C SCREENING] [facility] Future Scheduled Test 1990-01-14 00:00:00 HEPATITIS C SCREENING [code = HEPATITIS C SCREENING] [facility] Future Scheduled Test 1990-01-14 00:00:00 HEPATITIS C SCREENING [code = HEPATITIS C SCREENING] [facility] Future Scheduled Test 1990-01-14 00:00:00 HEPATITIS C SCREENING [code = HEPATITIS C SCREENING] [facility] Future Scheduled Test 1990-01-14 00:00:00 HEPATITIS C SCREENING [code = HEPATITIS C SCREENING] [facility] Future Scheduled Test 1990-01-14 00:00:00 HEPATITIS C SCREENING [code = HEPATITIS C SCREENING] [facility] Future Scheduled Test 1990-01-14 00:00:00 HEPATITIS C SCREENING [code = HEPATITIS C SCREENING] [facility] Future Scheduled Test 1990-01-14 00:00:00 HEPATITIS C SCREENING [code = HEPATITIS C SCREENING] [facility] Future Scheduled Test 1990-01-14 00:00:00 HEPATITIS C SCREENING [code = HEPATITIS C SCREENING] [facility] Future Scheduled Test 1990-01-14 00:00:00 HEPATITIS C SCREENING [code = HEPATITIS C SCREENING] [facility] Future Scheduled Test 1990-01-14 00:00:00 HEPATITIS C SCREENING [code = HEPATITIS C SCREENING] [facility] Future Scheduled Test 1990-01-14 00:00:00 HEPATITIS C SCREENING [code = HEPATITIS C SCREENING] [facility] Future Scheduled Test 1990-01-14 00:00:00 HEPATITIS C SCREENING [code = HEPATITIS C SCREENING] [facility] Future Scheduled Test 1990-01-14 00:00:00 HEPATITIS C SCREENING [code = HEPATITIS C SCREENING] [facility] Future Scheduled Test 1990-01-14 00:00:00 HEPATITIS C SCREENING [code = HEPATITIS C SCREENING] [facility] Future Scheduled Test 1990-01-14 00:00:00 HEPATITIS C SCREENING [code = HEPATITIS C SCREENING] [facility] Future Scheduled Test 1990-01-14 00:00:00 HEPATITIS C SCREENING [code = HEPATITIS C SCREENING] [facility] Future Scheduled Test 1990-01-14 00:00:00 HEPATITIS C SCREENING [code = HEPATITIS C SCREENING] [facility] Future Scheduled Test 1990-01-14 00:00:00 HEPATITIS C SCREENING [code = HEPATITIS C SCREENING] [facility] Future Scheduled Test 1990-01-14 00:00:00 HEPATITIS C SCREENING [code = HEPATITIS C SCREENING] [facility] Future Scheduled Test 1990-01-14 00:00:00 HEPATITIS C SCREENING [code = HEPATITIS C SCREENING] [facility] Future Scheduled Test 1990-01-14 00:00:00 HEPATITIS C SCREENING [code = HEPATITIS C SCREENING] [facility] Future Scheduled Test 1990-01-14 00:00:00 HEPATITIS C SCREENING [code = HEPATITIS C SCREENING] [facility] Future Scheduled Test 1990-01-14 00:00:00 HEPATITIS C SCREENING [code = HEPATITIS C SCREENING] [facility] Future Scheduled Test 1990-01-14 00:00:00 HEPATITIS C SCREENING [code = HEPATITIS C SCREENING] [facility] Future Scheduled Test 1990-01-14 00:00:00 HEPATITIS C SCREENING [code = HEPATITIS C SCREENING] [facility] Future Scheduled Test 1990-01-14 00:00:00 HEPATITIS C SCREENING [code = HEPATITIS C SCREENING] [facility] Future Scheduled Test 1990-01-14 00:00:00 HEPATITIS C SCREENING [code = HEPATITIS C SCREENING] [facility] Future Scheduled Test 1990-01-14 00:00:00 HEPATITIS C SCREENING [code = HEPATITIS C SCREENING] [facility] Future Scheduled Test 1990-01-14 00:00:00 HEPATITIS C SCREENING [code = HEPATITIS C SCREENING] [facility] Future Scheduled Test 1990-01-14 00:00:00 HEPATITIS C SCREENING [code = HEPATITIS C SCREENING] [facility] Future Scheduled Test 1990-01-14 00:00:00 HEPATITIS C SCREENING [code = HEPATITIS C SCREENING] [facility] Future Scheduled Test 1990-01-14 00:00:00 HEPATITIS C SCREENING [code = HEPATITIS C SCREENING] [facility] Future Scheduled Test 1990-01-14 00:00:00 HEPATITIS C SCREENING [code = HEPATITIS C SCREENING] [facility] Future Scheduled Test 1990-01-14 00:00:00 HEPATITIS C SCREENING [code = HEPATITIS C SCREENING] [facility] Future Scheduled Test 1990-01-14 00:00:00 HEPATITIS C SCREENING [code = HEPATITIS C SCREENING] [facility] Future Scheduled Test 1990-01-14 00:00:00 HEPATITIS C SCREENING [code = HEPATITIS C SCREENING] [facility] Future Scheduled Test 1990-01-14 00:00:00 HEPATITIS C SCREENING [code = HEPATITIS C SCREENING] [facility] Future Scheduled Test 1990-01-14 00:00:00 HEPATITIS C SCREENING [code = HEPATITIS C SCREENING] [facility] Future Scheduled Test 1990-01-14 00:00:00 HEPATITIS C SCREENING [code = HEPATITIS C SCREENING] [facility] Future Scheduled Test 1990-01-14 00:00:00 HEPATITIS C SCREENING [code = HEPATITIS C SCREENING] [facility] Future Scheduled Test 1987-01-14 00:00:00 Human immunodeficiency virus screening (procedure) [code = [id number]] [facility] Future Scheduled Test 1987-01-14 00:00:00 Human immunodeficiency virus screening (procedure) [code = [id number]] [facility] Future Scheduled Test 1984 00:00:00 Tobacco Cessation Counseling and Screening (12+) [code = Tobacco Cessation Counseling and Screening (12+)] [facility] Future Scheduled Test 1984 00:00:00 Tobacco Cessation Counseling and Screening (12+) [code = Tobacco Cessation Counseling and Screening (12+)] [facility] Future Scheduled Test 1984 00:00:00 Tobacco Cessation Counseling and Screening (12+) [code = Tobacco Cessation Counseling and Screening (12+)] [facility] Future Scheduled Test 1984 00:00:00 Tobacco Cessation Counseling and Screening (12+) [code = Tobacco Cessation Counseling and Screening (12+)] [facility] Future Scheduled Test 1984 00:00:00 Tobacco Cessation Counseling and Screening (12+) [code = Tobacco Cessation Counseling and Screening (12+)] [facility] Future Scheduled Test 1984 00:00:00 Tobacco Cessation Counseling and Screening (12+) [code = Tobacco Cessation Counseling and Screening (12+)] [facility] Future Scheduled Test 1984 00:00:00 Tobacco Cessation Counseling and Screening (12+) [code = Tobacco Cessation Counseling and Screening (12+)] [facility] Future Scheduled Test 1984 00:00:00 Tobacco Cessation Counseling and Screening (12+) [code = Tobacco Cessation Counseling and Screening (12+)] [facility] Future Scheduled Test 1984 00:00:00 Tobacco Cessation Counseling and Screening (12+) [code = Tobacco Cessation Counseling and Screening (12+)] [facility] Future Scheduled Test 1984 00:00:00 Tobacco Cessation Counseling and Screening (12+) [code = Tobacco Cessation Counseling and Screening (12+)] [facility] Future Scheduled Test 1984 00:00:00 Tobacco Cessation Counseling and Screening (12+) [code = Tobacco Cessation Counseling and Screening (12+)] [facility] Future Scheduled Test 1984 00:00:00 Tobacco Cessation Counseling and Screening (12+) [code = Tobacco Cessation Counseling and Screening (12+)] [facility] Future Scheduled Test 1984 00:00:00 Tobacco Cessation Counseling and Screening (12+) [code = Tobacco Cessation Counseling and Screening (12+)] [facility] Future Scheduled Test 1984 00:00:00 Tobacco Cessation Counseling and Screening (12+) [code = Tobacco Cessation Counseling and Screening (12+)] [facility] Future Scheduled Test 1984 00:00:00 Tobacco Cessation Counseling and Screening (12+) [code = Tobacco Cessation Counseling and Screening (12+)] [facility] Future Scheduled Test 1984 00:00:00 Tobacco Cessation Counseling and Screening (12+) [code = Tobacco Cessation Counseling and Screening (12+)] [facility] Scheduled Test 1984 00:00:00 Tobacco Cessation Counseling and Screening (12+) [code = Tobacco Cessation Counseling and Screening (12+)] [facility] Scheduled Test 1984 00:00:00 Tobacco Cessation Counseling and Screening (12+) [code = Tobacco Cessation Counseling and Screening (12+)] [facility] Future Scheduled Test 1984 00:00:00 Tobacco Cessation Counseling and Screening (12+) [code = Tobacco Cessation Counseling and Screening (12+)] [facility] Scheduled Test 1984 00:00:00 Tobacco Cessation Counseling and Screening (12+) [code = Tobacco Cessation Counseling and Screening (12+)] [facility] Future Scheduled Test 1984 00:00:00 Tobacco Cessation Counseling and Screening (12+) [code = Tobacco Cessation Counseling and Screening (12+)] [facility] Future Scheduled Test 1984 00:00:00 Tobacco Cessation Counseling and Screening (12+) [code = Tobacco Cessation Counseling and Screening (12+)] [facility] Future Scheduled Test 1984 00:00:00 Tobacco Cessation Counseling and Screening (12+) [code = Tobacco Cessation Counseling and Screening (12+)] [facility] Future Scheduled Test 1972 00:00:00 Screening for malignant neoplasm of breast (procedure) [code = 910086137] [facility] Future Scheduled Test 1972 00:00:00 CT Colonography (combo) [code = CT Colonography (combo)] [facility] Future Scheduled Test 1972 00:00:00 Screening for malignant neoplasm of colon (procedure) [code = 486598501] [facility] Future Scheduled Test 1972 00:00:00 Screening for malignant neoplasm of colon (procedure) [code = 642636612] [facility] Future Scheduled Test 1972 00:00:00 Screening for malignant neoplasm of colon (procedure) [code = 259159438] [facility] Future Scheduled Test 1972 00:00:00 Screening for malignant neoplasm of colon (procedure) [code = 446588206] [facility] Future Scheduled Test 1972 00:00:00 Sigmoidoscopy [code = Sigmoidoscopy] [facility] Future Scheduled Test 1972 00:00:00 Screening for malignant neoplasm of breast (procedure) [code = 358886383] [facility] Future Scheduled Test 1972 00:00:00 CT Colonography (combo) [code = CT Colonography (combo)] [facility] Future Scheduled Test 1972 00:00:00 Screening for malignant neoplasm of colon (procedure) [code = 639855282] [facility] Future Scheduled Test 1972 00:00:00 Screening for malignant neoplasm of colon (procedure) [code = 300905577] [facility] Future Scheduled Test 1972 00:00:00 Screening for malignant neoplasm of colon (procedure) [code = 318573025] [facility] Future Scheduled Test 1972 00:00:00 Screening for malignant neoplasm of colon (procedure) [code = 083844368] [facility] Future Scheduled Test 1972 00:00:00 Sigmoidoscopy [code = Sigmoidoscopy] [facility] Future Scheduled Test 1972 00:00:00 Screening for malignant neoplasm of breast (procedure) [code = 872993894] [facility] Future Scheduled Test 1972 00:00:00 CT Colonography (combo) [code = CT Colonography (combo)] [facility] Future Scheduled Test 1972 00:00:00 Screening for malignant neoplasm of colon (procedure) [code = 038491703] [facility] Future Scheduled Test 1972 00:00:00 Screening for malignant neoplasm of colon (procedure) [code = 562900224] [facility] Future Scheduled Test 1972 00:00:00 Screening for malignant neoplasm of colon (procedure) [code = 283978472] [facility] Future Scheduled Test 1972 00:00:00 Screening for malignant neoplasm of colon (procedure) [code = 109994212] [facility] Future Scheduled Test 1972 00:00:00 Sigmoidoscopy [code = Sigmoidoscopy] [facility] Future Scheduled Test 1972 00:00:00 Screening for malignant neoplasm of breast (procedure) [code = 540529150] [facility] Future Scheduled Test 1972 00:00:00 CT Colonography (combo) [code = CT Colonography (combo)] [facility] Future Scheduled Test 1972 00:00:00 Screening for malignant neoplasm of colon (procedure) [code = 114766442] [facility] Future Scheduled Test 1972 00:00:00 Screening for malignant neoplasm of colon (procedure) [code = 608696736] [facility] Future Scheduled Test 1972 00:00:00 Screening for malignant neoplasm of colon (procedure) [code = 291356005] [facility] Future Scheduled Test 1972 00:00:00 Screening for malignant neoplasm of colon (procedure) [code = 866819687] [facility] Future Scheduled Test 1972 00:00:00 Sigmoidoscopy [code = Sigmoidoscopy] [facility] Future Scheduled Test 1972 00:00:00 Screening for malignant neoplasm of breast (procedure) [code = 830285193] [facility] Future Scheduled Test 1972 00:00:00 CT Colonography (combo) [code = CT Colonography (combo)] [facility] Future Scheduled Test 1972 00:00:00 Screening for malignant neoplasm of colon (procedure) [code = 654892777] [facility] Future Scheduled Test 1972 00:00:00 Screening for malignant neoplasm of colon (procedure) [code = 619231636] [facility] Future Scheduled Test 1972 00:00:00 Screening for malignant neoplasm of colon (procedure) [code = 519840303] [facility] Future Scheduled Test 1972 00:00:00 Screening for malignant neoplasm of colon (procedure) [code = 176357865] [facility] Future Scheduled Test 1972 00:00:00 Sigmoidoscopy [code = Sigmoidoscopy] [facility] Future Scheduled Test 1972 00:00:00 Screening for malignant neoplasm of breast (procedure) [code = 662686777] [facility] Future Scheduled Test 1972 00:00:00 CT Colonography (combo) [code = CT Colonography (combo)] [facility] Future Scheduled Test 1972 00:00:00 Screening for malignant neoplasm of colon (procedure) [code = 540361703] [facility] Future Scheduled Test 1972 00:00:00 Screening for malignant neoplasm of colon (procedure) [code = 801546010] [facility] Future Scheduled Test 1972 00:00:00 Screening for malignant neoplasm of colon (procedure) [code = 448296437] [facility] Future Scheduled Test 1972 00:00:00 Screening for malignant neoplasm of colon (procedure) [code = 294150099] [facility] Future Scheduled Test 1972 00:00:00 Sigmoidoscopy [code = Sigmoidoscopy] [facility] Future Scheduled Test 1972 00:00:00 Screening for malignant neoplasm of breast (procedure) [code = 167684376] [facility] Future Scheduled Test 1972 00:00:00 CT Colonography (combo) [code = CT Colonography (combo)] [facility] Future Scheduled Test 1972 00:00:00 Screening for malignant neoplasm of colon (procedure) [code = 077083975] [facility] Future Scheduled Test 1972 00:00:00 Screening for malignant neoplasm of colon (procedure) [code = 452928301] [facility] Future Scheduled Test 1972 00:00:00 Screening for malignant neoplasm of colon (procedure) [code = 457847957] [facility] Future Scheduled Test 1972 00:00:00 Screening for malignant neoplasm of colon (procedure) [code = 217368910] [facility] Future Scheduled Test 1972 00:00:00 Sigmoidoscopy [code = Sigmoidoscopy] [facility] Future Scheduled Test 1972 00:00:00 Screening for malignant neoplasm of breast (procedure) [code = 604211337] [facility] Future Scheduled Test 1972 00:00:00 CT Colonography (combo) [code = CT Colonography (combo)] [facility] Future Scheduled Test 1972 00:00:00 Screening for malignant neoplasm of colon (procedure) [code = 773001694] [facility] Future Scheduled Test 1972 00:00:00 Screening for malignant neoplasm of colon (procedure) [code = 423039054] [facility] Future Scheduled Test 1972 00:00:00 Screening for malignant neoplasm of colon (procedure) [code = 160643787] [facility] Future Scheduled Test 1972 00:00:00 Screening for malignant neoplasm of colon (procedure) [code = 777482399] [facility] Future Scheduled Test 1972 00:00:00 Sigmoidoscopy [code = Sigmoidoscopy] [facility] Future Scheduled Test 1972 00:00:00 Screening for malignant neoplasm of breast (procedure) [code = 373677514] [facility] Future Scheduled Test 1972 00:00:00 CT Colonography (combo) [code = CT Colonography (combo)] [facility] Future Scheduled Test 1972 00:00:00 Screening for malignant neoplasm of colon (procedure) [code = 389244052] [facility] Future Scheduled Test 1972 00:00:00 Screening for malignant neoplasm of colon (procedure) [code = 834189898] [facility] Future Scheduled Test 1972 00:00:00 Screening for malignant neoplasm of colon (procedure) [code = 956108095] [facility] Future Scheduled Test 1972 00:00:00 Screening for malignant neoplasm of colon (procedure) [code = 989520893] [facility] Future Scheduled Test 1972 00:00:00 Sigmoidoscopy [code = Sigmoidoscopy] [facility] Future Scheduled Test 1972 00:00:00 Screening for malignant neoplasm of breast (procedure) [code = 986735678] [facility] Future Scheduled Test 1972 00:00:00 CT Colonography (combo) [code = CT Colonography (combo)] [facility] Future Scheduled Test 1972 00:00:00 Screening for malignant neoplasm of colon (procedure) [code = 975090976] [facility] Future Scheduled Test 1972 00:00:00 Screening for malignant neoplasm of colon (procedure) [code = 501796524] [facility] Future Scheduled Test 1972 00:00:00 Screening for malignant neoplasm of colon (procedure) [code = 160149683] [facility] Future Scheduled Test 1972 00:00:00 Screening for malignant neoplasm of colon (procedure) [code = 784460420] [facility] Future Scheduled Test 1972 00:00:00 Sigmoidoscopy [code = Sigmoidoscopy] [facility] Future Scheduled Test 1972 00:00:00 Screening for malignant neoplasm of breast (procedure) [code = 389114722] [facility] Future Scheduled Test 1972 00:00:00 CT Colonography (combo) [code = CT Colonography (combo)] [facility] Future Scheduled Test 1972 00:00:00 Screening for malignant neoplasm of colon (procedure) [code = 516945236] [facility] Future Scheduled Test 1972 00:00:00 Screening for malignant neoplasm of colon (procedure) [code = 883959841] [facility] Future Scheduled Test 1972 00:00:00 Screening for malignant neoplasm of colon (procedure) [code = 537702217] [facility] Future Scheduled Test 1972 00:00:00 Screening for malignant neoplasm of colon (procedure) [code = 202752861] [facility] Future Scheduled Test 1972 00:00:00 Sigmoidoscopy [code = Sigmoidoscopy] [facility] Future Scheduled Test 1972 00:00:00 Screening for malignant neoplasm of breast (procedure) [code = 699516960] [facility] Future Scheduled Test 1972 00:00:00 CT Colonography (combo) [code = CT Colonography (combo)] [facility] Future Scheduled Test 1972 00:00:00 Screening for malignant neoplasm of colon (procedure) [code = 424078798] [facility] Future Scheduled Test 1972 00:00:00 Screening for malignant neoplasm of colon (procedure) [code = 352079293] [facility] Future Scheduled Test 1972 00:00:00 Screening for malignant neoplasm of colon (procedure) [code = 043855155] [facility] Future Scheduled Test 1972 00:00:00 Screening for malignant neoplasm of colon (procedure) [code = 558658548] [facility] Future Scheduled Test 1972 00:00:00 Sigmoidoscopy [code = Sigmoidoscopy] [facility] Future Scheduled Test 1972 00:00:00 Screening for malignant neoplasm of breast (procedure) [code = 684178607] [facility] Future Scheduled Test 1972 00:00:00 CT Colonography (combo) [code = CT Colonography (combo)] [facility] Future Scheduled Test 1972 00:00:00 Screening for malignant neoplasm of colon (procedure) [code = 619436893] [facility] Future Scheduled Test 1972 00:00:00 Screening for malignant neoplasm of colon (procedure) [code = 501730018] [facility] Future Scheduled Test 1972 00:00:00 Screening for malignant neoplasm of colon (procedure) [code = 109487515] [facility] Future Scheduled Test 1972 00:00:00 Screening for malignant neoplasm of colon (procedure) [code = 717425945] [facility] Future Scheduled Test 1972 00:00:00 Sigmoidoscopy [code = Sigmoidoscopy] [facility] Future Scheduled Test 1972 00:00:00 Screening for malignant neoplasm of breast (procedure) [code = 719645564] [facility] Future Scheduled Test 1972 00:00:00 CT Colonography (combo) [code = CT Colonography (combo)] [facility] Future Scheduled Test 1972 00:00:00 Screening for malignant neoplasm of colon (procedure) [code = 245777323] [facility] Future Scheduled Test 1972 00:00:00 Screening for malignant neoplasm of colon (procedure) [code = 820433842] [facility] Future Scheduled Test 1972 00:00:00 Screening for malignant neoplasm of colon (procedure) [code = 692580649] [facility] Future Scheduled Test 1972 00:00:00 Screening for malignant neoplasm of colon (procedure) [code = 326464585] [facility] Future Scheduled Test 1972 00:00:00 Sigmoidoscopy [code = Sigmoidoscopy] [facility] Future Scheduled Test 1972 00:00:00 Screening for malignant neoplasm of breast (procedure) [code = 395771590] [facility] Future Scheduled Test 1972 00:00:00 CT Colonography (combo) [code = CT Colonography (combo)] [facility] Future Scheduled Test 1972 00:00:00 Screening for malignant neoplasm of colon (procedure) [code = 778135614] [facility] Future Scheduled Test 1972 00:00:00 Screening for malignant neoplasm of colon (procedure) [code = 409021520] [facility] Future Scheduled Test 1972 00:00:00 Screening for malignant neoplasm of colon (procedure) [code = 107703247] [facility] Future Scheduled Test 1972 00:00:00 Screening for malignant neoplasm of colon (procedure) [code = 833645978] [facility] Future Scheduled Test 1972 00:00:00 Sigmoidoscopy [code = Sigmoidoscopy] [facility] Future Scheduled Test 1972 00:00:00 Screening for malignant neoplasm of breast (procedure) [code = 704163991] [facility] Future Scheduled Test 1972 00:00:00 CT Colonography (combo) [code = CT Colonography (combo)] [facility] Future Scheduled Test 1972 00:00:00 Screening for malignant neoplasm of colon (procedure) [code = 132533511] [facility] Future Scheduled Test 1972 00:00:00 Screening for malignant neoplasm of colon (procedure) [code = 708314264] [facility] Future Scheduled Test 1972 00:00:00 Screening for malignant neoplasm of colon (procedure) [code = 572427274] [facility] Future Scheduled Test 1972 00:00:00 Screening for malignant neoplasm of colon (procedure) [code = 263219909] [facility] Future Scheduled Test 1972 00:00:00 Sigmoidoscopy [code = Sigmoidoscopy] [facility] Future Scheduled Test 1972 00:00:00 Screening for malignant neoplasm of breast (procedure) [code = 337977669] [facility] Future Scheduled Test 1972 00:00:00 CT Colonography (combo) [code = CT Colonography (combo)] [facility] Future Scheduled Test 1972 00:00:00 Screening for malignant neoplasm of colon (procedure) [code = 064280362] [facility] Future Scheduled Test 1972 00:00:00 Screening for malignant neoplasm of colon (procedure) [code = 016118316] [facility] Future Scheduled Test 1972 00:00:00 Screening for malignant neoplasm of colon (procedure) [code = 419854750] [facility] Future Scheduled Test 1972 00:00:00 Screening for malignant neoplasm of colon (procedure) [code = 194541677] [facility] Future Scheduled Test 1972 00:00:00 Sigmoidoscopy [code = Sigmoidoscopy] [facility] Future Scheduled Test 1972 00:00:00 Screening for malignant neoplasm of breast (procedure) [code = 465099914] [facility] Future Scheduled Test 1972 00:00:00 CT Colonography (combo) [code = CT Colonography (combo)] [facility] Future Scheduled Test 1972 00:00:00 Screening for malignant neoplasm of breast (procedure) [code = 091704188] [facility] Future Scheduled Test 1972 00:00:00 CT Colonography (combo) [code = CT Colonography (combo)] [facility] Future Scheduled Test 1972 00:00:00 Screening for malignant neoplasm of colon (procedure) [code = 238013828] [facility] Future Scheduled Test 1972 00:00:00 Screening for malignant neoplasm of colon (procedure) [code = 657477986] [facility] Future Scheduled Test 1972 00:00:00 Screening for malignant neoplasm of colon (procedure) [code = 286154714] [facility] Future Scheduled Test 1972 00:00:00 Screening for malignant neoplasm of colon (procedure) [code = 774757510] [facility] Future Scheduled Test 1972 00:00:00 Sigmoidoscopy [code = Sigmoidoscopy] [facility] Future Scheduled Test 1972 00:00:00 Screening for malignant neoplasm of colon (procedure) [code = 021030208] [facility] Future Scheduled Test 1972 00:00:00 Screening for malignant neoplasm of colon (procedure) [code = 354516899] [facility] Future Scheduled Test 1972 00:00:00 Screening for malignant neoplasm of colon (procedure) [code = 172190165] [facility] Future Scheduled Test 1972 00:00:00 Screening for malignant neoplasm of colon (procedure) [code = 543203059] [facility] Future Scheduled Test 1972 00:00:00 Sigmoidoscopy [code = Sigmoidoscopy] [facility] Future Scheduled Test 1972 00:00:00 Screening for malignant neoplasm of breast (procedure) [code = 835266046] [facility] Future Scheduled Test 1972 00:00:00 CT Colonography (combo) [code = CT Colonography (combo)] [facility] Future Scheduled Test 1972 00:00:00 Screening for malignant neoplasm of colon (procedure) [code = 920870960] [facility] Future Scheduled Test 1972 00:00:00 Screening for malignant neoplasm of colon (procedure) [code = 549127933] [facility] Future Scheduled Test 1972 00:00:00 Screening for malignant neoplasm of colon (procedure) [code = 777910874] [facility] Future Scheduled Test 1972 00:00:00 Screening for malignant neoplasm of colon (procedure) [code = 672847037] [facility] Future Scheduled Test 1972 00:00:00 Sigmoidoscopy [code = Sigmoidoscopy] [facility] Future Scheduled Test 1972 00:00:00 Screening for malignant neoplasm of breast (procedure) [code = 825454101] [facility] Future Scheduled Test 1972 00:00:00 CT Colonography (combo) [code = CT Colonography (combo)] [facility] Future Scheduled Test 1972 00:00:00 Screening for malignant neoplasm of colon (procedure) [code = 671238154] [facility] Future Scheduled Test 1972 00:00:00 Screening for malignant neoplasm of colon (procedure) [code = 615329062] [facility] Future Scheduled Test 1972 00:00:00 Screening for malignant neoplasm of colon (procedure) [code = 404353011] [facility] Future Scheduled Test 1972 00:00:00 Screening for malignant neoplasm of colon (procedure) [code = 954327514] [facility] Future Scheduled Test 1972 00:00:00 Sigmoidoscopy [code = Sigmoidoscopy] [facility] Future Scheduled Test 1972 00:00:00 Screening for malignant neoplasm of breast (procedure) [code = 479280399] [facility] Future Scheduled Test 1972 00:00:00 CT Colonography (combo) [code = CT Colonography (combo)] [facility] Future Scheduled Test 1972 00:00:00 Screening for malignant neoplasm of colon (procedure) [code = 509337010] [facility] Future Scheduled Test 1972 00:00:00 Screening for malignant neoplasm of colon (procedure) [code = 916814156] [facility] Future Scheduled Test 1972 00:00:00 Screening for malignant neoplasm of colon (procedure) [code = 846649811] [facility] Future Scheduled Test 1972 00:00:00 Screening for malignant neoplasm of colon (procedure) [code = 485139851] [facility] Future Scheduled Test 1972 00:00:00 Sigmoidoscopy [code = Sigmoidoscopy] [facility] Future Scheduled Test 1972 00:00:00 Screening for malignant neoplasm of breast (procedure) [code = 175861586] [facility] Future Scheduled Test 1972 00:00:00 CT Colonography (combo) [code = CT Colonography (combo)] [facility] Future Scheduled Test 1972 00:00:00 Screening for malignant neoplasm of colon (procedure) [code = [id number]] [facility] Future Scheduled Test 1972 00:00:00 Screening for malignant neoplasm of colon (procedure) [code = 249603576] [facility] Future Scheduled Test 1972 00:00:00 Screening for malignant neoplasm of colon (procedure) [code = 944660340] [facility] Future Scheduled Test 1972 00:00:00 Screening for malignant neoplasm of colon (procedure) [code = 515323965] [facility] Future Scheduled Test 1972 00:00:00 Sigmoidoscopy [code = Sigmoidoscopy] [facility] Future Scheduled Test 1972 00:00:00 Screening for malignant neoplasm of breast (procedure) [code = 557347556] [facility] Future Scheduled Test 1972 00:00:00 CT Colonography (combo) [code = CT Colonography (combo)] [facility] Future Scheduled Test 1972 00:00:00 Screening for malignant neoplasm of colon (procedure) [code = 471133633] [facility] Future Scheduled Test 1972 00:00:00 Screening for malignant neoplasm of colon (procedure) [code = 800920712] [facility] Future Scheduled Test 1972 00:00:00 Screening for malignant neoplasm of colon (procedure) [code = 072539782] [facility] Future Scheduled Test 1972 00:00:00 Screening for malignant neoplasm of colon (procedure) [code = 611081584] [facility] Future Scheduled Test 1972 00:00:00 Sigmoidoscopy [code = Sigmoidoscopy] [facility] Future Scheduled Test 1972 00:00:00 Screening for malignant neoplasm of breast (procedure) [code = 747931406] [facility] Future Scheduled Test 1972 00:00:00 CT Colonography (combo) [code = CT Colonography (combo)] [facility] Future Scheduled Test 1972 00:00:00 Screening for malignant neoplasm of colon (procedure) [code = 030172387] [facility] Future Scheduled Test 1972 00:00:00 Screening for malignant neoplasm of colon (procedure) [code = 627718056] [facility] Future Scheduled Test 1972 00:00:00 Screening for malignant neoplasm of colon (procedure) [code = 117297594] [facility] Future Scheduled Test 1972 00:00:00 Screening for malignant neoplasm of colon (procedure) [code = 196726341] [facility] Future Scheduled Test 1972 00:00:00 Sigmoidoscopy [code = Sigmoidoscopy] [facility] Future Scheduled Test 1972 00:00:00 Screening for malignant neoplasm of breast (procedure) [code = 159622359] [facility] Future Scheduled Test 1972 00:00:00 CT Colonography (combo) [code = CT Colonography (combo)] [facility] Future Scheduled Test 1972 00:00:00 Screening for malignant neoplasm of colon (procedure) [code = 229471629] [facility] Future Scheduled Test 1972 00:00:00 Screening for malignant neoplasm of colon (procedure) [code = 769396996] [facility] Future Scheduled Test 1972 00:00:00 Screening for malignant neoplasm of colon (procedure) [code = 004923856] [facility] Future Scheduled Test 1972 00:00:00 Screening for malignant neoplasm of colon (procedure) [code = 990778563] [facility] Future Scheduled Test 1972 00:00:00 Screening for malignant neoplasm of breast (procedure) [code = 130043721] [facility] Future Scheduled Test 1972 00:00:00 CT Colonography (combo) [code = CT Colonography (combo)] [facility] Future Scheduled Test 1972 00:00:00 Sigmoidoscopy [code = Sigmoidoscopy] [facility] Future Scheduled Test 1972 00:00:00 Screening for malignant neoplasm of colon (procedure) [code = 058999634] [facility] Future Scheduled Test 1972 00:00:00 Screening for malignant neoplasm of colon (procedure) [code = 525591461] [facility] Future Scheduled Test 1972 00:00:00 Screening for malignant neoplasm of colon (procedure) [code = 313892068] [facility] Future Scheduled Test 1972 00:00:00 Screening for malignant neoplasm of colon (procedure) [code = 257612267] [facility] Future Scheduled Test 1972 00:00:00 Sigmoidoscopy [code = Sigmoidoscopy] [facility] Future Scheduled Test 1972 00:00:00 Screening for malignant neoplasm of breast (procedure) [code = 450380350] [facility] Future Scheduled Test 1972 00:00:00 CT Colonography (combo) [code = CT Colonography (combo)] [facility] Future Scheduled Test 1972 00:00:00 Screening for malignant neoplasm of colon (procedure) [code = 926360197] [facility] Future Scheduled Test 1972 00:00:00 Screening for malignant neoplasm of colon (procedure) [code = 216231979] [facility] Future Scheduled Test 1972 00:00:00 Screening for malignant neoplasm of colon (procedure) [code = 523618090] [facility] Future Scheduled Test 1972 00:00:00 Screening for malignant neoplasm of colon (procedure) [code = 061387522] [facility] Future Scheduled Test 1972 00:00:00 Sigmoidoscopy [code = Sigmoidoscopy] [facility] Future Scheduled Test 1972 00:00:00 Screening for malignant neoplasm of breast (procedure) [code = 144410927] [facility] Future Scheduled Test 1972 00:00:00 CT Colonography (combo) [code = CT Colonography (combo)] [facility] Future Scheduled Test 1972 00:00:00 Screening for malignant neoplasm of colon (procedure) [code = 782820866] [facility] Future Scheduled Test 1972 00:00:00 Screening for malignant neoplasm of colon (procedure) [code = 266834917] [facility] Future Scheduled Test 1972 00:00:00 Screening for malignant neoplasm of colon (procedure) [code = 135439492] [facility] Future Scheduled Test 1972 00:00:00 Screening for malignant neoplasm of colon (procedure) [code = 894783411] [facility] Future Scheduled Test 1972 00:00:00 Sigmoidoscopy [code = Sigmoidoscopy] [facility] Future Scheduled Test 1972 00:00:00 Screening for malignant neoplasm of breast (procedure) [code = 219025606] [facility] Future Scheduled Test 1972 00:00:00 CT Colonography (combo) [code = CT Colonography (combo)] [facility] Future Scheduled Test 1972 00:00:00 Screening for malignant neoplasm of colon (procedure) [code = 151425369] [facility] Future Scheduled Test 1972 00:00:00 Screening for malignant neoplasm of colon (procedure) [code = 711132267] [facility] Future Scheduled Test 1972 00:00:00 Screening for malignant neoplasm of colon (procedure) [code = 968196357] [facility] Future Scheduled Test 1972 00:00:00 Screening for malignant neoplasm of colon (procedure) [code = 624141465] [facility] Future Scheduled Test 1972 00:00:00 Sigmoidoscopy [code = Sigmoidoscopy] [facility] Future Scheduled Test 1972 00:00:00 Screening for malignant neoplasm of breast (procedure) [code = 787099188] [facility] Future Scheduled Test 1972 00:00:00 CT Colonography (combo) [code = CT Colonography (combo)] [facility] Future Scheduled Test 1972 00:00:00 Screening for malignant neoplasm of colon (procedure) [code = 015454061] [facility] Future Scheduled Test 1972 00:00:00 Screening for malignant neoplasm of colon (procedure) [code = 888775542] [facility] Future Scheduled Test 1972 00:00:00 Screening for malignant neoplasm of colon (procedure) [code = 993479920] [facility] Future Scheduled Test 1972 00:00:00 Screening for malignant neoplasm of colon (procedure) [code = 703151330] [facility] Future Scheduled Test 1972 00:00:00 Sigmoidoscopy [code = Sigmoidoscopy] [facility] Future Scheduled Test 1972 00:00:00 Screening for malignant neoplasm of breast (procedure) [code = 113485416] [facility] Future Scheduled Test 1972 00:00:00 CT Colonography (combo) [code = CT Colonography (combo)] [facility] Future Scheduled Test 1972 00:00:00 Screening for malignant neoplasm of colon (procedure) [code = 012960249] [facility] Future Scheduled Test 1972 00:00:00 Screening for malignant neoplasm of colon (procedure) [code = 490493633] [facility] Future Scheduled Test 1972 00:00:00 Screening for malignant neoplasm of colon (procedure) [code = 189144330] [facility] Future Scheduled Test 1972 00:00:00 Screening for malignant neoplasm of colon (procedure) [code = 317650891] [facility] Future Scheduled Test 1972 00:00:00 Sigmoidoscopy [code = Sigmoidoscopy] [facility] Future Scheduled Test 1972 00:00:00 Screening for malignant neoplasm of breast (procedure) [code = 587120147] [facility] Future Scheduled Test 1972 00:00:00 CT Colonography (combo) [code = CT Colonography (combo)] [facility] Future Scheduled Test 1972 00:00:00 Screening for malignant neoplasm of colon (procedure) [code = 794602366] [facility] Future Scheduled Test 1972 00:00:00 Screening for malignant neoplasm of colon (procedure) [code = 297661765] [facility] Future Scheduled Test 1972 00:00:00 Screening for malignant neoplasm of breast (procedure) [code = 198702609] [facility] Future Scheduled Test 1972 00:00:00 Screening for malignant neoplasm of colon (procedure) [code = 804924221] [facility] Future Scheduled Test 1972 00:00:00 CT Colonography (combo) [code = CT Colonography (combo)] [facility] Future Scheduled Test 1972 00:00:00 Screening for malignant neoplasm of colon (procedure) [code = 026131642] [facility] Future Scheduled Test 1972 00:00:00 Screening for malignant neoplasm of colon (procedure) [code = 729313286] [facility] Future Scheduled Test 1972 00:00:00 Screening for malignant neoplasm of colon (procedure) [code = 202242387] [facility] Future Scheduled Test 1972 00:00:00 Screening for malignant neoplasm of colon (procedure) [code = 060341567] [facility] Future Scheduled Test 1972 00:00:00 Sigmoidoscopy [code = Sigmoidoscopy] [facility] Future Scheduled Test 1972 00:00:00 Screening for malignant neoplasm of colon (procedure) [code = 753903572] [facility] Future Scheduled Test 1972 00:00:00 Sigmoidoscopy [code = Sigmoidoscopy] [facility] Future Scheduled Test 1972 00:00:00 Screening for malignant neoplasm of breast (procedure) [code = 442589345] [facility] Future Scheduled Test 1972 00:00:00 CT Colonography (combo) [code = CT Colonography (combo)] [facility] Future Scheduled Test 1972 00:00:00 Screening for malignant neoplasm of colon (procedure) [code = 112001865] [facility] Future Scheduled Test 1972 00:00:00 Screening for malignant neoplasm of colon (procedure) [code = 471861335] [facility] Future Scheduled Test 1972 00:00:00 Screening for malignant neoplasm of colon (procedure) [code = 144049384] [facility] Future Scheduled Test 1972 00:00:00 Screening for malignant neoplasm of colon (procedure) [code = 035791189] [facility] Future Scheduled Test 1972 00:00:00 Sigmoidoscopy [code = Sigmoidoscopy] [facility] Future Scheduled Test 1972 00:00:00 Screening for malignant neoplasm of breast (procedure) [code = 391832381] [facility] Future Scheduled Test 1972 00:00:00 CT Colonography (combo) [code = CT Colonography (combo)] [facility] Future Scheduled Test 1972 00:00:00 Screening for malignant neoplasm of colon (procedure) [code = 294221154] [facility] Future Scheduled Test 1972 00:00:00 Screening for malignant neoplasm of colon (procedure) [code = 893616711] [facility] Future Scheduled Test 1972 00:00:00 Screening for malignant neoplasm of colon (procedure) [code = 660543410] [facility] Future Scheduled Test 1972 00:00:00 Screening for malignant neoplasm of colon (procedure) [code = 949674595] [facility] Future Scheduled Test 1972 00:00:00 Sigmoidoscopy [code = Sigmoidoscopy] [facility] Future Scheduled Test 1972 00:00:00 Screening for malignant neoplasm of breast (procedure) [code = 996081030] [facility] Future Scheduled Test 1972 00:00:00 CT Colonography (combo) [code = CT Colonography (combo)] [facility] Future Scheduled Test 1972 00:00:00 Screening for malignant neoplasm of colon (procedure) [code = 530458900] [facility] Future Scheduled Test 1972 00:00:00 Screening for malignant neoplasm of colon (procedure) [code = 764883875] [facility] Future Scheduled Test 1972 00:00:00 Screening for malignant neoplasm of colon (procedure) [code = 538633586] [facility] Future Scheduled Test 1972 00:00:00 Screening for malignant neoplasm of colon (procedure) [code = 661776643] [facility] Future Scheduled Test 1972 00:00:00 Sigmoidoscopy [code = Sigmoidoscopy] [facility] Future Scheduled Test 1972 00:00:00 Screening for malignant neoplasm of breast (procedure) [code = 131329700] [facility] Future Scheduled Test 1972 00:00:00 CT Colonography (combo) [code = CT Colonography (combo)] [facility] Future Scheduled Test 1972 00:00:00 Screening for malignant neoplasm of colon (procedure) [code = 198868399] [facility] Future Scheduled Test 1972 00:00:00 Screening for malignant neoplasm of colon (procedure) [code = 929922950] [facility] Future Scheduled Test 1972 00:00:00 Screening for malignant neoplasm of colon (procedure) [code = 188601668] [facility] Future Scheduled Test 1972 00:00:00 Screening for malignant neoplasm of colon (procedure) [code = 227735477] [facility] Future Scheduled Test 1972 00:00:00 Sigmoidoscopy [code = Sigmoidoscopy] [facility] Future Scheduled Test 1972 00:00:00 Screening for malignant neoplasm of breast (procedure) [code = 221371781] [facility] Future Scheduled Test 1972 00:00:00 CT Colonography (combo) [code = CT Colonography (combo)] [facility] Future Scheduled Test 1972 00:00:00 Screening for malignant neoplasm of colon (procedure) [code = 196695893] [facility] Future Scheduled Test 1972 00:00:00 Screening for malignant neoplasm of colon (procedure) [code = 389247227] [facility] Future Scheduled Test 1972 00:00:00 Screening for malignant neoplasm of colon (procedure) [code = 392148052] [facility] Future Scheduled Test 1972 00:00:00 Screening for malignant neoplasm of colon (procedure) [code = 505073282] [facility] Future Scheduled Test 1972 00:00:00 Sigmoidoscopy [code = Sigmoidoscopy] [facility] Future Scheduled Test 1972 00:00:00 Screening for malignant neoplasm of breast (procedure) [code = 331671841] [facility] Future Scheduled Test 1972 00:00:00 CT Colonography (combo) [code = CT Colonography (combo)] [facility] Future Scheduled Test 1972 00:00:00 Screening for malignant neoplasm of colon (procedure) [code = 529310967] [facility] Future Scheduled Test 1972 00:00:00 Screening for malignant neoplasm of colon (procedure) [code = 413707116] [facility] Future Scheduled Test 1972 00:00:00 Screening for malignant neoplasm of colon (procedure) [code = 242759918] [facility] Future Scheduled Test 1972 00:00:00 Screening for malignant neoplasm of colon (procedure) [code = 167568872] [facility] Future Scheduled Test 1972 00:00:00 Sigmoidoscopy [code = Sigmoidoscopy] [facility] Future Scheduled Test 1972 00:00:00 Screening for malignant neoplasm of breast (procedure) [code = 961326518] [facility] Future Scheduled Test 1972 00:00:00 CT Colonography (combo) [code = CT Colonography (combo)] [facility] Future Scheduled Test 1972 00:00:00 Screening for malignant neoplasm of colon (procedure) [code = 370911959] [facility] Future Scheduled Test 1972 00:00:00 Screening for malignant neoplasm of colon (procedure) [code = 694811594] [facility] Future Scheduled Test 1972 00:00:00 Screening for malignant neoplasm of colon (procedure) [code = 635532230] [facility] Future Scheduled Test 1972 00:00:00 Screening for malignant neoplasm of colon (procedure) [code = 982761029] [facility] Future Scheduled Test 1972 00:00:00 Sigmoidoscopy [code = Sigmoidoscopy] [facility] Future Scheduled Test 1972 00:00:00 Screening for malignant neoplasm of breast (procedure) [code = 353021761] [facility] Future Scheduled Test 1972 00:00:00 CT Colonography (combo) [code = CT Colonography (combo)] [facility] Future Scheduled Test 1972 00:00:00 Screening for malignant neoplasm of colon (procedure) [code = 359319776] [facility] Future Scheduled Test 1972 00:00:00 Screening for malignant neoplasm of colon (procedure) [code = 982241239] [facility] Future Scheduled Test 1972 00:00:00 Screening for malignant neoplasm of colon (procedure) [code = 335098720] [facility] Future Scheduled Test 1972 00:00:00 Screening for malignant neoplasm of colon (procedure) [code = 839671501] [facility] Future Scheduled Test 1972 00:00:00 Sigmoidoscopy [code = Sigmoidoscopy] [facility] Future Scheduled Test 1972 00:00:00 Screening for malignant neoplasm of breast (procedure) [code = 179057660] [facility] Future Scheduled Test 1972 00:00:00 CT Colonography (combo) [code = CT Colonography (combo)] [facility] Future Scheduled Test 1972 00:00:00 Screening for malignant neoplasm of colon (procedure) [code = 228321092] [facility] Future Scheduled Test 1972 00:00:00 Screening for malignant neoplasm of colon (procedure) [code = 486742893] [facility] Future Scheduled Test 1972 00:00:00 Screening for malignant neoplasm of colon (procedure) [code = 320365592] [facility] Future Scheduled Test 1972 00:00:00 Screening for malignant neoplasm of colon (procedure) [code = 904962688] [facility] Future Scheduled Test 1972 00:00:00 Sigmoidoscopy [code = Sigmoidoscopy] [facility] Future Scheduled Test 1972 00:00:00 Screening for malignant neoplasm of breast (procedure) [code = 762475104] [facility] Future Scheduled Test 1972 00:00:00 CT Colonography (combo) [code = CT Colonography (combo)] [facility] Future Scheduled Test 1972 00:00:00 Screening for malignant neoplasm of colon (procedure) [code = 521447417] [facility] Future Scheduled Test 1972 00:00:00 Screening for malignant neoplasm of colon (procedure) [code = 071188132] [facility] Future Scheduled Test 1972 00:00:00 Screening for malignant neoplasm of colon (procedure) [code = 488269651] [facility] Future Scheduled Test 1972 00:00:00 Screening for malignant neoplasm of colon (procedure) [code = 546474237] [facility] Future Scheduled Test 1972 00:00:00 Sigmoidoscopy [code = Sigmoidoscopy] [facility] Future Scheduled Test 1972 00:00:00 Screening for malignant neoplasm of breast (procedure) [code = 534301387] [facility] Future Scheduled Test 1972 00:00:00 CT Colonography (combo) [code = CT Colonography (combo)] [facility] Future Scheduled Test 1972 00:00:00 Screening for malignant neoplasm of colon (procedure) [code = 560312367] [facility] Future Scheduled Test 1972 00:00:00 Screening for malignant neoplasm of breast (procedure) [code = 355121624] [facility] Future Scheduled Test 1972 00:00:00 CT Colonography (combo) [code = CT Colonography (combo)] [facility] Future Scheduled Test 1972 00:00:00 Screening for malignant neoplasm of colon (procedure) [code = 489346666] [facility] Future Scheduled Test 1972 00:00:00 Screening for malignant neoplasm of colon (procedure) [code = 634060586] [facility] Future Scheduled Test 1972 00:00:00 Screening for malignant neoplasm of colon (procedure) [code = 235932338] [facility] Future Scheduled Test 1972 00:00:00 Screening for malignant neoplasm of colon (procedure) [code = 833780339] [facility] Future Scheduled Test 1972 00:00:00 Sigmoidoscopy [code = Sigmoidoscopy] [facility] Future Scheduled Test 1972 00:00:00 Screening for malignant neoplasm of colon (procedure) [code = 976269610] [facility] Future Scheduled Test 1972 00:00:00 Screening for malignant neoplasm of colon (procedure) [code = 031055052] [facility] Future Scheduled Test 1972 00:00:00 Screening for malignant neoplasm of colon (procedure) [code = 260930455] [facility] Future Scheduled Test 1972 00:00:00 Sigmoidoscopy [code = Sigmoidoscopy] [facility] Future Scheduled Test 1972 00:00:00 Screening for malignant neoplasm of breast (procedure) [code = 178773760] [facility] Future Scheduled Test 1972 00:00:00 CT Colonography (combo) [code = CT Colonography (combo)] [facility] Future Scheduled Test 1972 00:00:00 Screening for malignant neoplasm of colon (procedure) [code = 799652530] [facility] Future Scheduled Test 1972 00:00:00 Screening for malignant neoplasm of colon (procedure) [code = 262014588] [facility] Future Scheduled Test 1972 00:00:00 Screening for malignant neoplasm of colon (procedure) [code = 907786943] [facility] Future Scheduled Test 1972 00:00:00 Screening for malignant neoplasm of colon (procedure) [code = 764030686] [facility] Future Scheduled Test 1972 00:00:00 Sigmoidoscopy [code = Sigmoidoscopy] [facility] Future Scheduled Test 1972 00:00:00 Screening for malignant neoplasm of breast (procedure) [code = 947086110] [facility] Future Scheduled Test 1972 00:00:00 CT Colonography (combo) [code = CT Colonography (combo)] [facility] Future Scheduled Test 1972 00:00:00 Screening for malignant neoplasm of colon (procedure) [code = 547555405] [facility] Future Scheduled Test 1972 00:00:00 Screening for malignant neoplasm of colon (procedure) [code = 408931867] [facility] [facility]:00 Screening for malignant neoplasm of colon (procedure) [code = 858218206] [facility] Scheduled Test 1972 00:00:00 Screening for malignant neoplasm of colon (procedure) [code = 416430476] [facility] Scheduled Test 1972 00:00:00 Sigmoidoscopy [code = Sigmoidoscopy] [facility] Future Scheduled Test 1972 00:00:00 Screening for malignant neoplasm of breast (procedure) [code = 544386857] [facility] Sched[facility] Test 1972 00:00:00 CT Colonography (combo) [code = CT Colonography (combo)] [facility] Sched[facility] Test 1972 00:00:00 Screening for malignant neoplasm of colon (procedure) [code = 748965107] [facility] Scheduled Test 1972 00:00:00 Screening for malignant neoplasm of colon (procedure) [code = 849111114] [facility] Future Scheduled Test 1972 00:00:00 Screening for malignant neoplasm of colon (procedure) [code = 309452012] [facility] Future Scheduled Test 1972 00:00:00 Screening for malignant neoplasm of colon (procedure) [code = 763332436] [facility] Future Scheduled Test 1972 00:00:00 Sigmoidoscopy [code = Sigmoidoscopy] [facility] Future Scheduled Test 1972 00:00:00 Screening for malignant neoplasm of breast (procedure) [code = 385622989] [facility] Scheduled Test 1972 00:00:00 CT Colonography (combo) [code = CT Colonography (combo)] [facility] Future Scheduled Test 1972 00:00:00 Screening for malignant neoplasm of colon (procedure) [code = 369889079] [facility] Future Scheduled Test 1972 00:00:00 Screening for malignant neoplasm of colon (procedure) [code = 249445936] [facility] Future Scheduled Test 1972 00:00:00 Screening for malignant neoplasm of colon (procedure) [code = 806201124] [facility] Future Scheduled Test 1972 00:00:00 Screening for malignant neoplasm of colon (procedure) [code = 784578023] [facility] Future Scheduled Test 1972 00:00:00 Sigmoidoscopy [code = Sigmoidoscopy] [facility] Future Scheduled Test 1972 00:00:00 Screening for malignant neoplasm of breast (procedure) [code = 323961751] [facility] Future Scheduled Test 1972 00:00:00 CT Colonography (combo) [code = CT Colonography (combo)] [facility] Future Scheduled Test 1972 00:00:00 Screening for malignant neoplasm of colon (procedure) [code = 576600270] [facility] Future Scheduled Test 1972 00:00:00 Screening for malignant neoplasm of colon (procedure) [code = 379983178] [facility] Future Scheduled Test 1972 00:00:00 Screening for malignant neoplasm of colon (procedure) [code = 629902799] [facility] Future Scheduled Test 1972 00:00:00 Screening for malignant neoplasm of colon (procedure) [code = 271750310] [facility] Future Scheduled Test 1972 00:00:00 Screening for malignant neoplasm of breast (procedure) [code = 016624117] [facility] Future Scheduled Test 1972 00:00:00 Sigmoidoscopy [code = Sigmoidoscopy] [facility] Future Scheduled Test 1972 00:00:00 CT Colonography (combo) [code = CT Colonography (combo)] [facility] Future Scheduled Test 1972 00:00:00 Screening for malignant neoplasm of colon (procedure) [code = 869714135] [facility] Future Scheduled Test 1972 00:00:00 Screening for malignant neoplasm of breast (procedure) [code = 397147078] [facility] Future Scheduled Test 1972 00:00:00 CT Colonography (combo) [code = CT Colonography (combo)] [facility] Future Scheduled Test 1972 00:00:00 Screening for malignant neoplasm of colon (procedure) [code = 457951329] [facility] Future Scheduled Test 1972 00:00:00 Screening for malignant neoplasm of colon (procedure) [code = 163905294] [facility] Future Scheduled Test 1972 00:00:00 Screening for malignant neoplasm of colon (procedure) [code = 089508150] [facility] Future Scheduled Test 1972 00:00:00 Screening for malignant neoplasm of colon (procedure) [code = 520644475] [facility] Future Scheduled Test 1972 00:00:00 Screening for malignant neoplasm of colon (procedure) [code = 983384089] [facility] Future Scheduled Test 1972 00:00:00 Sigmoidoscopy [code = Sigmoidoscopy] [facility] Future Scheduled Test 1972 00:00:00 Screening for malignant neoplasm of colon (procedure) [code = 515931527] [facility] Future Scheduled Test 1972 00:00:00 Screening for malignant neoplasm of colon (procedure) [code = 535896087] [facility] Future Scheduled Test 1972 00:00:00 Screening for malignant neoplasm of breast (procedure) [code = 638707061] [facility] Future Scheduled Test 1972 00:00:00 CT Colonography (combo) [code = CT Colonography (combo)] [facility] Future Scheduled Test 1972 00:00:00 Screening for malignant neoplasm of colon (procedure) [code = 213325520] [facility] Future Scheduled Test 1972 00:00:00 Screening for malignant neoplasm of colon (procedure) [code = 284080855] [facility] Future Scheduled Test 1972 00:00:00 Sigmoidoscopy [code = Sigmoidoscopy] [facility] Future Scheduled Test 1972 00:00:00 Screening for malignant neoplasm of colon (procedure) [code = 543916445] [facility] Future Scheduled Test 1972 00:00:00 Screening for malignant neoplasm of colon (procedure) [code = 406270731] [facility] Future Scheduled Test 1972 00:00:00 Sigmoidoscopy [code = Sigmoidoscopy] [facility] Future Scheduled Test 1972 00:00:00 Screening for malignant neoplasm of breast (procedure) [code = 349655515] [facility] Future Scheduled Test 1972 00:00:00 CT Colonography (combo) [code = CT Colonography (combo)] [facility] Future Scheduled Test 1972 00:00:00 Screening for malignant neoplasm of colon (procedure) [code = 165105224] [facility] Future Scheduled Test 1972 00:00:00 Screening for malignant neoplasm of colon (procedure) [code = 168213950] [facility] Future Scheduled Test 1972 00:00:00 Screening for malignant neoplasm of colon (procedure) [code = 534631286] [facility] Future Scheduled Test 1972 00:00:00 Screening for malignant neoplasm of colon (procedure) [code = 883175260] [facility] Future Scheduled Test 1972 00:00:00 Sigmoidoscopy [code = Sigmoidoscopy] [facility] Future Scheduled Test 1972 00:00:00 Screening for malignant neoplasm of breast (procedure) [code = 542367819] [facility] Future Scheduled Test 1972 00:00:00 CT Colonography (combo) [code = CT Colonography (combo)] [facility] Future Scheduled Test 1972 00:00:00 Screening for malignant neoplasm of colon (procedure) [code = 588390384] [facility] Future Scheduled Test 1972 00:00:00 Screening for malignant neoplasm of colon (procedure) [code = 119959874] [facility] Future Scheduled Test 1972 00:00:00 Screening for malignant neoplasm of colon (procedure) [code = 777319143] [facility] Future Scheduled Test 1972 00:00:00 Screening for malignant neoplasm of colon (procedure) [code = 199747809] [facility] Future Scheduled Test 1972 00:00:00 Sigmoidoscopy [code = Sigmoidoscopy] [facility] Future Scheduled Test 1972 00:00:00 Screening for malignant neoplasm of breast (procedure) [code = 698979043] [facility] Future Scheduled Test 1972 00:00:00 CT Colonography (combo) [code = CT Colonography (combo)] [facility] Future Scheduled Test 1972 00:00:00 Screening for malignant neoplasm of colon (procedure) [code = 525035524] [facility] Future Scheduled Test 1972 00:00:00 Screening for malignant neoplasm of colon (procedure) [code = 060224661] [facility] Future Scheduled Test 1972 00:00:00 Screening for malignant neoplasm of colon (procedure) [code = 510595221] [facility] Future Scheduled Test 1972 00:00:00 Screening for malignant neoplasm of colon (procedure) [code = 560575512] [facility] Future Scheduled Test 1972 00:00:00 Sigmoidoscopy [code = Sigmoidoscopy] [facility] Future Scheduled Test 1972 00:00:00 Screening for malignant neoplasm of breast (procedure) [code = 910340876] [facility] Future Scheduled Test 1972 00:00:00 CT Colonography (combo) [code = CT Colonography (combo)] [facility] Future Scheduled Test 1972 00:00:00 Screening for malignant neoplasm of colon (procedure) [code = 695735499] [facility] Future Scheduled Test 1972 00:00:00 Screening for malignant neoplasm of colon (procedure) [code = 621362828] [facility] Future Scheduled Test 1972 00:00:00 Screening for malignant neoplasm of colon (procedure) [code = 818961310] [facility] Future Scheduled Test 1972 00:00:00 Screening for malignant neoplasm of colon (procedure) [code = 310005648] [facility] Future Scheduled Test 1972 00:00:00 Sigmoidoscopy [code = Sigmoidoscopy] [facility] Future Scheduled Test 1972 00:00:00 Screening for malignant neoplasm of breast (procedure) [code = 676390081] [facility] Future Scheduled Test 1972 00:00:00 CT Colonography (combo) [code = CT Colonography (combo)] [facility] Future Scheduled Test 1972 00:00:00 Screening for malignant neoplasm of colon (procedure) [code = 765809067] [facility] Future Scheduled Test 1972 00:00:00 Screening for malignant neoplasm of colon (procedure) [code = 823944998] [facility] Future Scheduled Test 1972 00:00:00 Screening for malignant neoplasm of colon (procedure) [code = 656274665] [facility] Future Scheduled Test 1972 00:00:00 Screening for malignant neoplasm of colon (procedure) [code = 773841974] [facility] Future Scheduled Test 1972 00:00:00 Sigmoidoscopy [code = Sigmoidoscopy] [facility] Future Scheduled Test 1972 00:00:00 Screening for malignant neoplasm of breast (procedure) [code = 076932204] [facility] Future Scheduled Test 1972 00:00:00 CT Colonography (combo) [code = CT Colonography (combo)] [facility] Future Scheduled Test 1972 00:00:00 Screening for malignant neoplasm of colon (procedure) [code = 107730019] [facility] Future Scheduled Test 1972 00:00:00 Screening for malignant neoplasm of colon (procedure) [code = 807000953] [facility] Future Scheduled Test 1972 00:00:00 Screening for malignant neoplasm of colon (procedure) [code = 930256484] [facility] Future Scheduled Test 1972 00:00:00 Screening for malignant neoplasm of colon (procedure) [code = 387327506] [facility] Future Scheduled Test 1972 00:00:00 Sigmoidoscopy [code = Sigmoidoscopy] [facility] Future Scheduled Test 1972 00:00:00 Screening for malignant neoplasm of breast (procedure) [code = 089092183] [facility] Future Scheduled Test 1972 00:00:00 CT Colonography (combo) [code = CT Colonography (combo)] [facility] Future Scheduled Test 1972 00:00:00 Screening for malignant neoplasm of colon (procedure) [code = 420047648] [facility] Future Scheduled Test 1972 00:00:00 Screening for malignant neoplasm of colon (procedure) [code = 379750904] [facility] Future Scheduled Test 1972 00:00:00 Screening for malignant neoplasm of colon (procedure) [code = 434670659] [facility] Future Scheduled Test 1972 00:00:00 Screening for malignant neoplasm of colon (procedure) [code = 681381509] [facility] Future Scheduled Test 1972 00:00:00 Sigmoidoscopy [code = Sigmoidoscopy] [facility] Future Scheduled Test 1972 00:00:00 Screening for malignant neoplasm of breast (procedure) [code = 166570037] [facility] Future Scheduled Test 1972 00:00:00 CT Colonography (combo) [code = CT Colonography (combo)] [facility] Future Scheduled Test 1972 00:00:00 Screening for malignant neoplasm of colon (procedure) [code = 176243585] [facility] Future Scheduled Test 1972 00:00:00 Screening for malignant neoplasm of colon (procedure) [code = 511880222] [facility] Future Scheduled Test 1972 00:00:00 Screening for malignant neoplasm of colon (procedure) [code = 438734213] [facility] Future Scheduled Test 1972 00:00:00 Screening for malignant neoplasm of colon (procedure) [code = 105908967] [facility] Future Scheduled Test 1972 00:00:00 Sigmoidoscopy [code = Sigmoidoscopy] [facility] Future Scheduled Test 1972 00:00:00 Screening for malignant neoplasm of breast (procedure) [code = 728366470] [facility] Future Scheduled Test 1972 00:00:00 CT Colonography (combo) [code = CT Colonography (combo)] [facility] Future Scheduled Test 1972 00:00:00 Screening for malignant neoplasm of colon (procedure) [code = 824017405] [facility] Future Scheduled Test 1972 00:00:00 Screening for malignant neoplasm of colon (procedure) [code = 400357152] [facility] Future Scheduled Test 1972 00:00:00 Screening for malignant neoplasm of colon (procedure) [code = 341076681] [facility] Future Scheduled Test 1972 00:00:00 Screening for malignant neoplasm of colon (procedure) [code = 322429426] [facility] Future Scheduled Test 1972 00:00:00 Sigmoidoscopy [code = Sigmoidoscopy] [facility] Future Scheduled Test 1972 00:00:00 Screening for malignant neoplasm of breast (procedure) [code = 420688604] [facility] Future Scheduled Test 1972 00:00:00 CT Colonography (combo) [code = CT Colonography (combo)] [facility] Future Scheduled Test 1972 00:00:00 Screening for malignant neoplasm of colon (procedure) [code = 571724749] [facility] Future Scheduled Test 1972 00:00:00 Screening for malignant neoplasm of colon (procedure) [code = 486985102] [facility] Future Scheduled Test 1972 00:00:00 Screening for malignant neoplasm of colon (procedure) [code = 385470373] [facility] Future Scheduled Test 1972 00:00:00 Screening for malignant neoplasm of colon (procedure) [code = 615271064] [facility] Future Scheduled Test 1972 00:00:00 Sigmoidoscopy [code = Sigmoidoscopy] [facility] Future Scheduled Test 1972 00:00:00 Screening for malignant neoplasm of breast (procedure) [code = 537522043] [facility] Future Scheduled Test 1972 00:00:00 CT Colonography (combo) [code = CT Colonography (combo)] [facility] Future Scheduled Test 1972 00:00:00 Screening for malignant neoplasm of colon (procedure) [code = 813962766] [facility] Future Scheduled Test 1972 00:00:00 Screening for malignant neoplasm of colon (procedure) [code = 603092103] [facility] Future Scheduled Test 1972 00:00:00 Screening for malignant neoplasm of colon (procedure) [code = 115570377] [facility] Future Scheduled Test 1972 00:00:00 Screening for malignant neoplasm of colon (procedure) [code = 853795408] [facility] Future Scheduled Test 1972 00:00:00 Sigmoidoscopy [code = Sigmoidoscopy] [facility] Future Scheduled Test 1972 00:00:00 Screening for malignant neoplasm of breast (procedure) [code = 877808839] [facility] Future Scheduled Test 1972 00:00:00 CT Colonography (combo) [code = CT Colonography (combo)] [facility] Future Scheduled Test 1972 00:00:00 Screening for malignant neoplasm of colon (procedure) [code = 165502697] [facility] Future Scheduled Test 1972 00:00:00 Screening for malignant neoplasm of colon (procedure) [code = 949717155] [facility] Future Scheduled Test 1972 00:00:00 Screening for malignant neoplasm of colon (procedure) [code = 028507692] [facility] Future Scheduled Test 1972 00:00:00 Screening for malignant neoplasm of colon (procedure) [code = 703469857] [facility] Future Scheduled Test 1972 00:00:00 Sigmoidoscopy [code = Sigmoidoscopy] [facility] Future Scheduled Test 1972 00:00:00 Screening for malignant neoplasm of breast (procedure) [code = 258893062] [facility] Future Scheduled Test 1972 00:00:00 CT Colonography (combo) [code = CT Colonography (combo)] [facility] Future Scheduled Test 1972 00:00:00 Screening for malignant neoplasm of colon (procedure) [code = 307992624] [facility] Future Scheduled Test 1972 00:00:00 Screening for malignant neoplasm of colon (procedure) [code = 635702038] [facility] Future Scheduled Test 1972 00:00:00 Screening for malignant neoplasm of colon (procedure) [code = 407088717] [facility] Future Scheduled Test 1972 00:00:00 Screening for malignant neoplasm of colon (procedure) [code = 388535011] [facility] Future Scheduled Test 1972 00:00:00 Sigmoidoscopy [code = Sigmoidoscopy] [facility] Future Scheduled Test 1972 00:00:00 Screening for malignant neoplasm of breast (procedure) [code = 762489824] [facility] Future Scheduled Test 1972 00:00:00 CT Colonography (combo) [code = CT Colonography (combo)] [facility] Future Scheduled Test 1972 00:00:00 Screening for malignant neoplasm of colon (procedure) [code = 704604084] [facility] Future Scheduled Test 1972 00:00:00 Screening for malignant neoplasm of colon (procedure) [code = 504816028] [facility] Future Scheduled Test 1972 00:00:00 Screening for malignant neoplasm of colon (procedure) [code = 549295172] [facility] Future Scheduled Test 1972 00:00:00 Screening for malignant neoplasm of colon (procedure) [code = 974571091] [facility] Future Scheduled Test 1972 00:00:00 Sigmoidoscopy [code = Sigmoidoscopy] [facility] Future Scheduled Test 1972 00:00:00 Screening for malignant neoplasm of breast (procedure) [code = 946011422] [facility] Future Scheduled Test 1972 00:00:00 CT Colonography (combo) [code = CT Colonography (combo)] [facility] Future Scheduled Test 1972 00:00:00 Screening for malignant neoplasm of colon (procedure) [code = 261051659] [facility] Future Scheduled Test 1972 00:00:00 Screening for malignant neoplasm of colon (procedure) [code = 021300981] [facility] Future Scheduled Test 1972 00:00:00 Screening for malignant neoplasm of colon (procedure) [code = 705173830] [facility] Future Scheduled Test 1972 00:00:00 Screening for malignant neoplasm of colon (procedure) [code = 714041233] [facility] Future Scheduled Test 1972 00:00:00 Sigmoidoscopy [code = Sigmoidoscopy] [facility] Future Scheduled Test 1972 00:00:00 Screening for malignant neoplasm of breast (procedure) [code = 028607671] [facility] Future Scheduled Test 1972 00:00:00 CT Colonography (combo) [code = CT Colonography (combo)] [facility] Future Scheduled Test 1972 00:00:00 Screening for malignant neoplasm of colon (procedure) [code = 277664166] [facility] Future Scheduled Test 1972 00:00:00 Screening for malignant neoplasm of colon (procedure) [code = 476019816] [facility] Future Scheduled Test 1972 00:00:00 Screening for malignant neoplasm of colon (procedure) [code = 559349661] [facility] Future Scheduled Test 1972 00:00:00 Screening for malignant neoplasm of colon (procedure) [code = 280357476] [facility] Future Scheduled Test 1972 00:00:00 Sigmoidoscopy [code = Sigmoidoscopy] [facility] Goal Plan of Care Not e [code = 37874-3] Goal Plan of Care Not e [code = 10992-6] Goal Plan of Care Not e [code = 59856-2] Goal Plan of Care Not e [code = 22175-0] Goal Plan of Care Not e [code = 99197-2] Goal Plan of Care Not e [code = 51652-2] Goal Plan of Care Not e [code = 44830-5] Goal Plan of Care Not e [code = 71142-2] Goal Plan of Care Not e [code = 72194-4] Goal Plan of Care Not e [code = 76427-3] Goal Plan of Care Not e [code = 51632-9] Goal Plan of Care Not e [code = 08414-2] Goal Plan of Care Not e [code = 94186-5] Goal Plan of Care Not e [code = 14048-1] Goal Plan of Care Not e [code = 51655-9] Goal Plan of Care Not e [code = 74659-3] Goal Plan of Care Not e [code = 90236-2] Goal Plan of Care Not e [code = 13798-3] Goal Plan of Care Not e [code = 01977-4] Goal Plan of Care Not e [code = 85811-1] Goal Plan of Care Not e [code = 97344-5] Goal Plan of Care Not e [code = 84988-9] Goal Plan of Care Not e [code = 98622-3] Goal Plan of Care Not e [code = 38504-5] Goal Plan of Care Not e [code = 56653-9] Goal Plan of Care Not e [code = 80920-8] Goal Plan of Care Not e [code = 86321-2] Goal Plan of Care Not e [code = 19909-0] Goal Plan of Care Not e [code = 48243-5] Goal Plan of Care Not e [code = 68407-2] Goal Plan of Care Not e [code = 03463-8] Goal Plan of Care Not e [code = 80375-9] Goal Plan of Care Not e [code = 12827-7] Goal Plan of Care Not e [code = 99242-6] Goal Plan of Care Not e [code = 58903-6] Encounters Start Date/Time End Date/Time Encounter Type Admission Type Attending Clinicians [facility] [place] Facility Care Department Encounter ID Source 2024-10-08 17:21:07 Emergency [facility] [id number] [facility] 2023-09-07 10:11:03 Inpatient [facility] [id number] [facility] 2023-09-05 10:08:27 Inpatient [facility] PARRISH [facility] [id number] [facility] 2023-09-05 10:05:12 Inpatient [facility] PARR[facility] [id number] [facility] 2023-09-04 04:51:30 Inpatient [facility]ANK[facility] PARRISH [facility] [id number] [facility] 2023-09-04 04:14:55 Inpatient [facility]ANKAJ PARRISH [facility] [id number] [facility] 2023-09-04 03:08:45 Inpatient [facility]ANK[facility] PARRISH [facility] [id number] [facility] 2023-09-04 02:36:28 Inpatient PANKAJ PARRISH [facility] [id number] [facility] 2023-06-16 09:32:36 Inpatient [facility]YDEE DICKENS [facility] [id number] [facility] 2023-06-16 09:32:09 Inpatient [facility]YDEE DICKENS [facility] [id number] [facility] 2023-06-16 09:31:53 Inpatient [facility]YDEE DICKENS [facility] [id number] [facility] 2023-06-14 07:46:02 Inpatient AYDEE DICKENS [facility] [id number] [facility] 2023-06-14 07:39:22 Inpatient AYDEE DICKENS [facility] [id number] [facility] 2023-06-14 06:38:38 Inpatient [facility] [id number] [facility] [facility] 2023-[facility]-13 13:44:18 Inpatient MARIANELA MURPHY SLEH SLE [id number] [facility] 2023-06-13 11:45:24 Inpatient AYDEE DICKENS [facility] [id number] [facility] 2023-05-08 11:21:00 Outpatient ADAM ROYAL [facility] Surgery [id number] [facility] 2023-04-01 14:26:29 Inpatient ER THOMAS LOZOYA [facility] [id number] [facility] 2023-03-31 09:24:52 Inpatient ER MARIAH ALDRIDGE [facility] [id number] [facility] 2021-05-20 18:48:[address] [facility] [id number] [facility] 2021-05-20 12:43:[address] [facility] [id number] [facility] 2024-10-25 00:00:00 2024-10-25 00:00:00 Outpatient PROVID[facility]IFFANY [id number] [facility]24-10-25 00:00:00 2024-10-25 00:00:00 Outpatient CYNTHIA MTZ [id number] Cynthia [facility] 2024-10-24 23:56:00 2024-10-24 23:56:00 Outpatient Segundo Toledo HCACL LABO [id number] [facility] 2024-10-18 02:35:00 2024-10-24 18:45:00 Inpatient EM Segundo Toledo HCAPM INTE [id number] [facility] 2024-10-18 03:04:00 2024-10-18 03:04:00 Outpatient [facility] [id number] [facility] 2024-10-17 19:10:00 2024-10-18 00:30:00 Emergency EM Gus Santamaria [facility] [id number] [facility] 2024-10-18 00:00:00 2024-10-18 00:00:00 Outpatient CYNTHIA MTZ [id number] Cynthia [facility] 2024-10-18 00:00:00 2024-10-18 00:00:00 Outpatient CYNTHIA MTZ [id number] Cynthia [facility] 2024-10-08 14:45:00 2024-10-08 19:03:00 Emergency Emergency [facility] General Medicine [id number] [facility] 2024-10-08 14:45:00 2024-10-08 19:03:00 Emergency Kike Ho Andrew [facility] 1..840.114 350.1.13.70 8.2.7.2.686 [id number] [facility] 2024-10-06 00:00:00 2024-10-06 00:00:00 Outpatient GURWINDER MCCORMICK [id number] Cynthia [facility] 2024-10-05 00:00:00 2024-10-05 00:00:00 Outpatient TIFFANY PUENTE [id number] Cynthia [facility] 2023-11-05 00:00:00 2024-09-03 02:17:06 Orders Only Doctor Unassigned, [place] Doctor Unassigned, [place] [facility] (EWELINA) 1.2.840.114 350.1.13.10 4.2.7.2.686 [id number] [facility] 2023-11-18 00:00:00 2024-09-03 02:07:30 Orders Only Doctor Unassigned, [place] Doctor Unassigned, [place] [facility] (EWELINA) 1.2.840.114 350.1.13.10 4.2.7.2.686 [id number] [facility] 2024-08-10 06:02:28 2024-08-10 23:59:00 Outpatient [facility] [id number] [facility] 2024-08-10 05:24:00 2024-08-10 15:10:00 Emergency Emergency WENDI MONTAÑO [facility] General Medicine [id number] [facility] 2024-08-10 05:24:00 2024-08-10 15:10:00 Emergency Brooklynn Paige Shabana [facility] 1.2.840.114 350.1.13.70 8.2.7.2.686 [id number] Blade Bolaños [facility] 2024-08-10 00:00:00 2024-08-10 06:02:27 Orders Only System, Provider Not In [facility] 1.2.840.114 350.1.13.70 8.2.7.2.686 [id number] Blade Bolaños [facility] 2024-04-14 11:30:00 2024-04-14 11:30:00 Outpatient GUSTAVO DELANEY [id number] Cynthia [facility] 2024-04-02 20:43:00 2024-04-03 00:56:00 Emergency CHRISSY BISHOP TIMOTHY SDKE[facility]IN [facility] [id number] [facility] 2024-04-02 20:43:00 2024-04-03 00:56:00 Emergency Chrissy Mohr AT [facility] 1.2.840.114 350.1.13.10 4.2.7.2.686 [id number] [facility] 2024-03-08 00:00:00 2024-03-08 00:00:00 Outpatient MD CYNTHIA MARLEY [id number] [facility] 2024-01-14 00:00:00 2024-02-20 18:26:15 Patient Secure Msg Doctor Unassigned, [place] [facility] 1.2.840.114 350.1.13.10 4.2.7.2.686 [id number] [facility] 2024-02-19 00:00:00 2024-02-19 00:00:00 Outpatient GUSTAVO DELANEY [id number] Cynthia [facility] 2024-02-16 10:15:00 2024-02-16 10:15:00 Outpatient MORALES BALL [id number] [facility] 2024-01-13 00:00:00 2024-02-13 18:19:27 Patient Secure Msg Doctor Unassigned, [place] [facility] 1.2840.114 350.1.13.10 4.2.7.2.686 [id number] [facility] 2024-01-12 22:04:00 2024-01-13 00:00:00 Emergency X RADHA WYATT BRENT [facility] ERT [id number] [facility] 2024-01-12 22:04:00 2024-01-13 00:00:00 Emergency VasRadha zapata J [facility] 1.2840.114 350.1.13.10 4.2.7.2.686 [id number] [facility] 2024-01-12 00:00:00 2024-01-12 16:22:23 Transition of Care Veronique Carrillo 1.2840.114 350.1.13.10 4.2.7.2.686 [id number] [facility] 2024-01-09 16:11:00 2024-01-10 15:56:00 Outpatient X DARRICK FRY [facility] SHEA [id number] [facility] 2024-01-09 16:11:00 2024-01-10 15:56:00 Hospital Encounter Olena Doyle K Paige Khan, Mohammad A. [facility] 1.2840.114 350.1.13.10 4.2.7.2.686 [id number] [facility] 2023-12-17 00:00:00 2023-12-17 00:00:00 Transition of Care Morena Joditristan BENAVIDES 1.2840.114 350.1.13.10 4.2.7.2.686 [id number] [facility] 2023-12-14 13:34:00 2023-12-15 11:08:00 Outpatient X TAL BENAVIDEZ [facility] [id number] [facility] 2023-12-14 13:34:00 2023-12-15 11:08:00 Emergency Mj Bryan Jelani [facility] 1.2.840.114 350.1.13.10 4.2.7.2.686 [id number] [facility] 2023-12-07 00:00:00 2023-12-07 00:00:00 Outpatient GUSTAVO DELANEY [id number] Cynthia Garcia 2023-12-02 13:05:00 2023-12-03 19:00:00 [address]JGAN SUERO [facility] [id number] [facility] 2023-12-02 13:05:00 2023-12-03 19:00:00 [facility] 1.2.840.114 350.1.13.10 4.2.7.2.686 [id number] [facility] 2023-12-01 00:00:00 2023-12-01 10:40:26 Transition of Care Madeline Mckinley 1.2.840.114 350.1.13.10 4.2.7.2.686 [id number] [facility] 2023-11-30 00:00:00 2023-11-30 10:41:56 Transition of Care Madeline Mckinley 1.2.840.114 350.1.13.10 4.2.7.2.686 [id number] [facility] 2023-11-21 21:12:00 2023-11-28 16:01:00 Inpatient X MADELINE PIERRE [facility] [id number] [facility] 2023-11-21 21:12:00 2023-11-28 16:01:00 Hospital Encounter Madeline Pierre, Megan Fry, Cr Mcdermott, Ivis Rodriguez, Ryder Joshi [facility] 1.2.840.114 350.1.13.10 4.2.7.2.686 [id number] [facility] 2023-11-26 14:15:00 2023-11-26 14:15:00 Outpatient AARON LEDESMA [id number] Cynthia [facility] 2023-11-23 13:45:00 2023-11-23 14:45:00 Surgery Cris Molina [facility] 1.2.840.114 350.1.13.10 4.2.7.2.686 [id number] [facility] 2023-11-18 00:00:00 2023-11-18 00:00:00 Outpatient EFRA BABCOCK [id number] Cynthia [facility] 2023-11-15 00:00:00 2023-11-15 00:00:00 Outpatient CYNTHIA MTZ [id number] Cynthia [facility] 2023-11-15 00:00:00 2023-11-15 00:00:00 Outpatient CYNTHIA MTZ [id number] Cynthia [facility] 2023-11-15 00:00:00 2023-11-15 00:00:00 Outpatient CYNTHIA MTZ [id number] [facility] 15:15:00 2023-11-12 15:15:00 Outpatient GUSTAVO DELANEY [id number] Cynthia [facility] 2023-11-12 00:00:00 2023-11-12 00:00:00 Outpatient CYNTHIA MTZ [id number] Cynthia Garcia 2023-11-10 09:30:00 2023-11-10 09:30:00 Outpatient JESUS ALBERTO LIEBERMANUEL CYNTHIA MTZ [id number] Cynthia [facility] 2023-11-09 00:00:00 2023-11-09 00:00:00 Outpatient ELAINAGUSTAVO CYNTHIA MTZ [id number] Cynthia [facility] 2023-11-09 00:00:00 2023-11-09 00:00:00 Outpatient MYLA LIEBERMAN CYNTHIA MTZ [id number] [facility] 2023-11-07 17:51:00 2023-11-07 22:04:00 emergency [facility] [id number] 2023-11-07 17:51:00 2023-11-07 22:04:00 Emergency ER JUANY GREEN [facility] [id number] [facility] 2023-11-05 00:00:00 2023-11-05 00:00:00 Outpatient TIFFANY PUENTE [id number] Cynthia [facility] 2023-11-03 00:00:00 2023-11-03 00:00:00 Outpatient CYNTHIA MTZ [id number] Cynthia [facility] 2023-10-29 00:00:00 2023-10-29 00:00:00 Outpatient GUSTAVO DELANEY [id number] Cynthia [facility] 2023-10-26 00:00:00 2023-10-26 00:00:00 Outpatient EFRA BABCOCK [id number] Cynthia [facility] 2023-10-22 00:00:00 2023-10-22 00:00:00 Outpatient GUSTAVO DELANEY [id number] [facility] 2023-10-16 11:10:00 2023-10-16 11:10:00 Outpatient SIDDHARTH STANFORD [id number] [facility] 2023-10-15 00:00:00 2023-10-15 00:00:00 Outpatient MD CYNTHIA MARLEY [id number] [facility] 2023-[facility]-15 00:00:00 2023-10-15 00:00:00 Outpatient MARGOT GUILLEN CYNTHIA [id number] Cyn[facility] 2023-10-15 00:00:00 2023-10-15 00:00:00 Outpatient MARGOT GUILLEN CYNTHIA [id number] Cyn[facility] 2023-10-06 10:45:00 2023-10-06 10:45:00 Outpatient BAYSARAI NOBLE CYNTHIA CYNTHIA [id number] [facility] 2023-10-05 11:30:00 2023-10-05 11:30:00 Outpatient PREZAS, GUSTAVO CYNTHIA MTZ [id number] [facility] 2023-10-01 00:00:00 2023-10-01 00:00:00 Outpatient PREZAS, GUSTAVO CYNTHIA MTZ [id number] [facility] 2023-09-30 14:15:00 2023-09-30 14:15:00 Outpatient PREZAS, GUSTAVO CYNTHIA MTZ [id number] [facility] 2023-09-24 00:00:00 2023-09-24 00:00:00 Outpatient PREZAS, GUSTAVO CYNTHIA MTZ [id number] [facility] 2023-09-23 00:00:00 2023-09-23 00:00:00 Outpatient TIFFANY PUENTE [id number] Cynthia Seybold 2023-09-22 00:00:00 2023-09-22 00:00:00 Outpatient PREZAS, GUSTAVO CYNTHIA MTZ [id number] Cynthia Seybold 2023-09-22 00:00:00 2023-09-22 00:00:00 Outpatient GUILLENMARGOT PIERCE CYNTHIA MTZ [id number] Cynthia Seybold 2023-09-16 00:00:00 2023-09-16 00:00:00 Outpatient PREZAS, GUSTAVO CYNTHIA MTZ [id number] Cynthia Seybold 2023-09-16 00:00:00 2023-09-16 00:00:00 Outpatient PREZAS, GUSTAVO CYNTHIA MTZ [id number] Cynthia Seybold 2023-09-16 00:00:00 2023-09-16 00:00:00 Outpatient GUSTAVO DELANEY CYNTHIA MTZ [id number] [facility] 2023-09-14 00:00:00 2023-09-14 00:00:00 Outpatient MARGOT GUILLEN CYNTHIA MTZ [id number] [facility] 2023-09-14 00:00:00 2023-09-14 00:00:00 Outpatient MARGOT GUILLEN CYNTHIA MTZ [id number] Cynthia [facility] 2023-09-11 11:00:00 2023-09-11 11:00:00 Outpatient BJYONATAN AGUIRRE CYNTHIA MTZ [id number] Cynthia [facility] 2023-09-09 00:00:00 2023-09-09 00:00:00 Outpatient CYNTHIA MZT [id number] Cynthia [facility] 2023-09-04 00:14:00 2023-09-08 10:51:00 Inpatient ER EDWARD FARRELL [facility] Neurosurger y [id number] [facility] 2023-09-04 00:14:00 2023-09-08 10:51:00 Hospital Encounter ER London Loyola, Edward GandhimanEdward [facility] [id number] [facility] 2023-09-07 18:41:43 2023-09-07 18:41:43 Outpatient NICOLETTE HINSONGEOVANNI EDWARD [facility] [id number] [facility] 2023-09-03 20:52:00 2023-09-03 23:44:00 emergency [facility] [id number] 2023-09-03 20:52:00 2023-09-03 23:44:00 Emergency ER JUANY GREEN [facility] [id number] [facility] 2023-09-02 00:00:00 2023-09-02 00:00:00 Outpatient TIFFANY PUENTE [id number] Cynthia [facility] 2023-09-01 15:30:00 2023-09-01 15:30:00 Outpatient DEMETRIUS TOBAR [id number] Cynthia Garcia 2023-08-19 00:00:00 2023-08-19 00:00:00 Outpatient EL QUIN MONET [facility] [id number] [facility] 2023-08-13 00:00:00 2023-08-13 13:44:39 Orders Only Quin Monet [facility] [id number] [facility] 2023-08-12 13:49:00 2023-08-12 16:12:00 Emergency X MJ BRYAN [facility] ERT [id number] [facility] 2023-08-12 13:49:00 2023-08-12 16:12:00 Emergency Mj Bryan [facility] 1.2.840.114 350.1.13.10 4.2.7.2.686 [id number] [facility] 2023-06-15 00:00:00 2023-06-18 10:20:39 Orders Only Provider, Not In System [facility] [id number] [facility] 2023-06-13 03:43:00 2023-06-16 19:45:00 Inpatient ER AYDEE GO [facility] Internal Med [id number] [facility] 2023-06-13 03:43:00 2023-06-16 19:45:00 Hospital Encounter ER Marianela Collazo Sahar [facility] [id number] [facility] 2023-06-13 16:30:06 2023-06-13 16:30:06 Outpatient AYDEE DICKENS [facility] [id number] [facility] 2023-06-13 00:00:00 2023-06-13 00:00:00 Orders Only [facility] [id number] [facility] 2023-06-13 00:00:00 2023-06-13 00:00:00 Travel [facility] [id number] [facility] 2023-06-12 00:00:00 2023-06-12 00:00:00 Telephone Dallas Gomez [facility] [id number] [facility] 2023-05-28 06:45:00 2023-06-04 17:36:00 Inpatient ADAM ROYAL Surgery [id number] [facility] 2023-05-28 06:45:00 2023-06-04 17:36:00 Hospital Encounter Adam Royal [facility] [id number] [facility] 2023-06-01 09:10:00 2023-06-01 13:00:00 Anesthesia Event Ismaelisidoro Donisonya BenítezanAntwon [facility] [id number] [facility] 2023-06-01 09:00:00 2023-06-01 11:30:00 Surgery Adam Garcia [facility] [id number] [facility] 2023-06-01 09:47:57 2023-06-01 09:47:57 Outpatient ADAM ORYAL [facility] [id number] [facility] 2023-06-01 09:40:34 2023-06-01 09:40:34 Outpatient ADAM ROYAL [facility] [id number] [facility] 2023-05-31 09:25:55 2023-05-31 23:59:00 Inpatient ADAM ROYAL [facility] [id number] [facility] 2023-05-31 09:00:00 2023-05-31 23:59:00 Hospital Encounter Adam Garcia [facility] [id number] [facility] 2023-05-28 18:15:29 2023-05-28 18:15:29 Outpatient ADAM ROYAL [facility] [id number] [facility] 2023-05-28 08:30:00 2023-05-28 11:54:00 Anesthesia Event Ramya, Yue [facility] [id number] [facility] 2023-05-28 11:41:14 2023-05-28 11:41:14 Outpatient ADAM ROYAL [facility] SLE [id number] [facility] 2023-05-28 08:30:00 2023-05-28 11:00:00 Surgery Adam Garcia [facility] [id number] [facility] 2023-05-28 10:00:47 2023-05-28 10:00:47 Outpatient ADAM ROYAL SLE SLE [id number] [facility] 2023-05-28 00:00:00 2023-05-28 00:00:00 Travel [facility] [id number] [facility] 2023-05-26 09:00:00 2023-05-26 09:00:00 Hospital Encounter Adam Garcia [facility] [id number] [facility] 2023-05-26 00:00:00 2023-05-26 00:00:00 Outpatient ADAM ROYAL [facility] SLE [id number] [facility] 2023-05-26 00:00:00 2023-05-26 00:00:00 Outpatient NICOLETTE [facility] SLE [id number] [facility] 2023-05-26 00:00:00 2023-05-26 00:00:00 Travel [facility] [id number] [facility] 2023-05-13 11:43:03 2023-05-13 11:43:03 Outpatient SFA SFA [id number] Adria Martínez 2023-05-12 00:00:00 2023-05-12 00:00:00 Orders Only Adam Garcia [facility] [id number] [facility] 2023-05-08 14:11:21 2023-05-08 14:11:21 Outpatient SFA SFA [id number] Adria Martínez 2023-03-29 19:25:00 2023-04-02 20:48:00 Inpatient ER THOMAS LOZOYA Neurology [id number] [facility] 2023-03-29 19:25:00 2023-04-02 20:48:00 Hospital Encounter ER Connie Davey Shireen Kulkarni, Mrinalini [facility] [id number] [facility] 2023-03-31 08:32:56 2023-03-31 00:00:00 Inpatient ER MARIAH ALDRIDGE SLERigoberto SLE [id number] [facility] 2023-03-30 10:24:12 2023-03-30 23:59:00 Outpatient ER CONNIE DAVEY SLERigoberto SLE [id number] [facility] 2023-03-30 09:40:00 2023-03-30 23:59:00 Hospital Encounter Connie Davey [facility] [id number] [facility] 2023-03-30 13:46:20 2023-03-30 13:46:20 Outpatient ER MARIAH ALDRIDGE SLERigoberto [facility] [id number] [facility] 2023-03-30 13:46:14 2023-03-30 13:46:14 Outpatient ER MARIAH ALDRIDGE [facility] [id number] [facility] 2023-03-30 10:24:04 2023-03-30 10:24:04 Outpatient ER CONNIE DAVEY [facility] [id number] [facility] 2023-03-30 00:00:00 2023-03-30 00:00:00 Orders Only [facility] [id number] [facility] 2023-03-30 00:00:00 2023-03-30 00:00:00 Travel [facility] [id number] [facility] 2022-12-11 08:56:00 2022-12-11 15:29:00 Emergency X Alfonso ALVARADO [facility] ERT [id number] [facility] 2022-12-11 08:56:00 2022-12-11 15:29:00 Emergency Alfonso Alvarado [facility] 1.2.840.114 350.1.13.10 4.2.7.2.686 [id number] [facility] 2022-11-17 17:25:00 2022-11-18 01:19:00 Emergency X RITCHIE MOTTA [facility] ERT [id number] [facility] 2022-11-17 17:25:00 2022-11-18 01:19:00 Emergency Ritchie Motta [facility] 1.2.840.114 350.1.13.10 4.2.7.2.686 [id number] [facility] 2022-08-28 00:00:00 2022-08-28 00:00:00 Patient Outreach Margot Beckman 1.2.840.114 350.1.13.10 4.2.7.2.686 [id number] [facility] 2022-08-20 00:00:00 2022-08-20 00:00:00 Patient Outreach Margot Beckman 1.2.840.114 350.1.13.10 4.2.7.2.686 [id number] [facility] 2022-08-02 17:30:00 2022-08-03 14:29:00 Outpatient ER PARRISH WHEATLEY [facility] Neurology [id number] [facility] 2022-08-02 17:30:00 2022-08-03 14:29:00 Hospital Encounter ER Halima Mendoza Kinjal M Ibe, Chimkama Ngozi Cynthia [facility] [id number] [facility] 2022-08-03 00:00:00 2022-08-03 00:00:00 Orders Only [facility] [id number] [facility] 2022-08-02 00:00:00 2022-08-02 00:00:00 Travel [facility] [id number] [facility] 2022-07-31 11:42:00 2022-08-01 21:48:00 Inpatient X DAMI LOWRY [facility] SHEA [id number] [facility] 2022-07-31 11:42:00 2022-08-01 21:48:00 Hospital Encounter Megan Rondon Pablitogary Dami [facility] 1.840.114 350.1.13.10 4.2.7.2.686 [id number] [facility] 2022-08-01 00:00:00 2022-08-01 00:00:00 Transition of Care Maria Teresa Nicole 1.840.114 350.1.13.10 4.2.7.2.686 [id number] [facility] 2022-07-28 14:41:38 2022-07-28 14:41:[address] [facility] [id number] Adria Martínez 2022-07-28 00:00:00 2022-07-28 00:00:00 Outpatient Visit [id number] 2022-07-24 13:24:40 2022-07-24 13:24:[address] [facility] [id number] Adria Galan Mauricio 2022-05-23 14:51:01 2022-05-23 14:51:[address] [facility] 1104 Adria Martínez 2022-05-23 00:00:00 2022-05-23 00:00:00 Outpatient Visit [id number] 2022-05-04 20:22:00 2022-05-08 14:44:00 Outpatient X CHANTEL BOJORQUEZ [facility] [id number] [facility] 2022-05-04 20:22:00 2022-05-08 14:44:00 Emergency Brandyn Mcfarlane Pablo [facility] 1.840.114 350.1.13.10 4.2.7.2.686 [id number] [facility] 2022-04-13 13:06:00 2022-04-15 15:00:00 Inpatient X SELINA MARTINES [facility] BERNARDINO [id number] [facility] 2022-04-13 13:06:00 2022-04-15 15:00:00 Hospital Encounter Sapna Vargas Muhammad Zeeshan Chhabra, [facility] 1.2840.114 350.1.13.10 4.2.7.2.686 [id number] [facility] 2022-02-19 10:20:00 2022-02-19 10:30:00 Imm/Inj Visit [facility] Jose Santiago [facility] 1..114 350.1.13.10 4.2.7.2.686 [id number] [facility] 2022-02-19 10:20:00 2022-02-19 10:20:[address] [facility] [id number] [facility] 2021-11-23 15:07:00 2021-11-23 17:03:00 Emergency X WILLIAMS ALLISON [facility] ERT [id number] [facility] 2021-11-23 15:07:00 2021-11-23 17:03:00 Emergency Megan Rondon Folusho F [facility] 1.84.114 350.1.13.10 4.2.7.2.686 [id number] [facility] 2021-11-21 09:40:00 2021-11-21 09:40:[address] [facility] [id number] [facility] 2021-05-24 09:30:00 2021-05-24 09:30:[address] [facility] [id number] [facility] 2021-05-24 08:47:51 2021-05-24 08:57:51 Imm/Inj Visit Vaccine Newnan Jose Santiago [facility] 1.2840.114 350.1.13.10 4.2.7.2.686 [id number] [facility] 2021-05-03 09:40:00 2021-05-03 09:59:[address] [facility] [id number] [facility] 2021-05-03 09:17:43 2021-05-03 09:59:35 Imm/Inj Visit Vaccine Newnan Dangelo Pak [facility] 1.840.114 350.1.13.10 4.2.7.2.686 [id number] [facility] 2021-04-16 00:00:00 2021-04-16 00:00:00 Orders Only Doctor Unassigned, [place] [facility] 1.2840.114 350.1.13.10 4.2.7.2.686 [id number] [facility] 2021-03-17 00:00:00 2021-03-17 00:00:00 Telephone Miky Nava [facility] 1.2840.114 350.1.13.10 4.2.7.2.686 [id number] [facility] 2021-03-16 20:08:00 2021-03-16 23:24:00 Emergency Fabrice Chakraborty [facility] 1.2840.114 350.1.13.10 4.2.7.2.686 [id number] [facility] 2021-03-14 18:59:34 2021-03-14 20:19:13 Urgent Care Lydia Desouza Unknown, Attending [facility] 1.2.840.114 350.1.13.10 4.2.7.2.686 [id number] [facility] 2021-03-14 19:00:00 2021-03-14 19:00:00 Outpatient R UNKNOWN, ATTENDING [facility] [id number] [facility] 2021-02-19 10:49:00 2021-02-19 14:48:00 Emergency Estefania [facility]roy [facility] [id number] [id number] [facility] 2019-03-09 00:00:00 2019-03-09 00:00:[address] [facility] [id number] [id number] [facility] 2019-03-09 00:00:00 2019-03-09 00:00:[address] [facility] [id number] [id number] Results Test Description Test Time Test Comments Results Result Co mments Source CSF [id number] 12:22:00* Test Item Value Reference Range Interpretation Comme nts CSF COLOR (test code = COLCSF) COLORLESS DESCRIP. COLORLESS CSF TUBE # (test code = TUBECSF) #1 Tube# Tube Used CSF GLUCOSE (test code = GLUCSF) 49 MG/DL 40-75 N CSF TOTAL PROTEIN (test code = PROTCSF) 70 MG/DL 15-45 HH RESULTS CALLED T O SHURANREAD BACK & CONFIRMED? [id number] 10/24/24 1209 GLUCOSE BEDSIDE [id number] 11:35:00* Test Item Value Reference Range Interpretation Comme nts GLUCOSE BEDSIDE TESTING (raisa t code = GLUBED) 139 mg/dL 70-110 H GLUCOSE BEDSIDE [id number] 07:58:00* Test Item Value Reference Range Interpretation Comme nts GLUCOSE BEDSIDE TESTING (raisa t code = GLUBED) 81 mg/dL 70-110 N BASIC METABOLIC [id number] 04:35:00* Test Item Value Reference Range Interpretation Comme nts SODIUM (test code = NA) 137 mmol/L 136-145 N POTASSIUM (test code = K) 4.3 mmol/L 3.4-5.0 N CHLORIDE (test code = CL) 104 mmol/L 98-107 N CARBON DIOXIDE (test code = CO2) 25 mmol/L 21-32 N ANION GAP (test code = GAP) 8 GAP calc 4-15 N GLUCOSE (test code = GLU) 86 MG/DL 70-110 N BLOOD UREA NITROGEN (test code = BUN) 14 MG/DL 7-18 N GLOMERULAR FILTRATION RATE (test code = GFR) >=60 max estimate estGFR >60 The Glomerular Filtration Rate is a calculated parameterbased on serum Creatinine, patient age and sex. GFR valuesless than 60 mL/min/1.73 square meters are indicative ofChronic Kidney Disease. Values less than 15 mL/min/1.73square meters indicate Kidney failure. The calculation forGFR is based on the CKD-EPI (2020) calculation. This formulais race indifferent and is the recommended formula for GFRby the National Kidney Foundation for Adults.The GFR will not calculate if the sex is unknown or if thepatient's age is <18 years. CREATININE (test code = CREAT) 0.8 MG/DL 0.6-1.0 N CALCIUM (test code = CA) 8.4 MG/DL 8.5-10.1 L CBC W/AUTO [id number] 04:24:00* Test Item Value Reference Range Interpretation Comme nts WHITE BLOOD CELL (test code = WBC) 8.7 K/mm3 3.5-11.0 N RED BLOOD CELL (test code = RBC) 3.92 M/mm3 4.70-6.10 L HEMOGLOBIN (test code = HGB) 10.9 G/DL 10.4-14.9 N HEMATOCRIT (test code = HCT) 35.9 % 31.5-44.1 N MEAN CELL VOLUME (test code = MCV) 91.6 Fl 84.5-98.6 N MEAN CELL HGB (test code = MCH) 27.8 pg 27.0-34.2 N MEAN CELL HGB CONCETRATION (test code = MCHC) 30.4 G/DL 31.5-34.0 L RED CELL DISTRIBUTION WIDTH (test code = RDW) 17.5 SD 11.5-14.5 H PLATELET COUNT (test code = PLT) 370 K/mm3 150-450 N MEAN PLATELET VOLUME (test c ode = MPV) 7.50 fL 7.0-10.5 N NEUTROPHIL % (test code = NT%) 54.5 % 40-76 N IMMATURE GRANULOCYTE % (test code = IG%) 1.0 % 0.0-5.0 N LYMPHOCYTE % (test code = LY%) 30.1 % 20.5-51.1 N MONOCYTE % (test code = MO%) 10.3 % 1.7-9.3 H EOSINOPHIL % (test code = EO%) 3.2 % 0.0-6.0 N BASOPHIL % (test code = BA%) 0.9 % 0.0-2.0 N NUCLEATED RBC % (test code = NRBC%) 0.0 /100WBC% 0.0-1.0 N NEUTROPHIL # (test code = NT#) 4.7 K/mm3 1.8-7.6 N IMMATURE GRANULOCYTE # (test code = IG#) 0.09 x10 3/uL 0.00-0.03 H LYMPHOCYTE # (test code = LY#) 2.6 K/mm3 0.6-3.2 N MONOCYTE # (test code = MO#) 0.9 K/mm3 0.3-1.1 N EOSINOPHIL # (test code = EO#) 0.3 K/mm3 0.0-0.4 N BASOPHIL # (test code = BA#) 0.1 K/mm3 0.0-0.1 N NUCLEATED RBC # (test code = NRBC#) 0.0 K/mm3 0.0-0.1 N GLUCOSE BEDSIDE [id number] 20:41:00* Test Item Value Reference Range Interpretation Comme nts GLUCOSE BEDSIDE TESTING (raisa t code = GLUBED) 119 mg/dL 70-110 H GLUCOSE BEDSIDE [id number] 16:15:00* Test Item Value Reference Range Interpretation Comme nts GLUCOSE BEDSIDE TESTING (raisa t code = GLUBED) 107 mg/dL 70-110 N GLUCOSE BEDSIDE [id number] 11:32:00* Test Item Value Reference Range Interpretation Comme nts GLUCOSE BEDSIDE TESTING (raisa t code = GLUBED) 114 mg/dL 70-110 H GLUCOSE BEDSIDE [id number] 07:57:00* Test Item Value Reference Range Interpretation Comme nts GLUCOSE BEDSIDE TESTING (raisa t code = GLUBED) 83 mg/dL 70-110 N COMPREHENSIVE METABOLIC [id number] 05:08:00* Test Item Value Reference Range Interpretation Comme nts SODIUM (test code = NA) 140 mmol/L 136-145 N POTASSIUM (test code = K) 4.2 mmol/L 3.4-5.0 N CHLORIDE (test code = CL) 105 mmol/L 98-107 N CARBON DIOXIDE (test code = CO2) 26 mmol/L 21-32 N ANION GAP (test code = GAP) 9 GAP calc 4-15 N GLUCOSE (test code = GLU) 107 MG/DL 70-110 N BLOOD UREA NITROGEN (test code = BUN) 14 MG/DL 7-18 N GLOMERULAR FILTRATION RATE (test code = GFR) >=60 max estimate estGFR >60 The Glomerular Filtration Rate is a calculated parameterbased on serum Creatinine, patient age and sex. GFR valuesless than 60 mL/min/1.73 square meters are indicative ofChronic Kidney Disease. Values less than 15 mL/min/1.73square meters indicate Kidney failure. The calculation forGFR is based on the CKD-EPI (2020) calculation. This formulais race indifferent and is the recommended formula for GFRby the National Kidney Foundation for Adults.The GFR will not calculate if the sex is unknown or if thepatient's age is <18 years. CREATININE (test code = CREAT) 0.7 MG/DL 0.6-1.0 N TOTAL PROTEIN (test code = PROT) 6.5 G/DL 6.4-8.2 N ALBUMIN (test code = ALB) 3.4 G/DL 3.4-5.0 N GLOBULIN (test code = GLOB) 3.1 GM/dL ALBUMIN/GLOBULIN RATIO (test code = A/G) 1.1 RATIO 1.2-2.2 L CALCIUM (test code = CA) 8.7 MG/DL 8.5-10.1 N BILIRUBIN TOTAL (test code = BILT) 0.1 MG/DL 0.0-1.0 N SGOT/AST (test code = AST) 19 Unit/L 15-37 N SGPT/ALT (test code = ALT) 18 Unit/L 30-65 L ALKALINE PHOSPHATASE TOTAL (test code = ALKP) 86 Unit/L 50-136 N [id number] 05:08:00* Test Item Value Reference Range Interpretation Comme nts PHOSPHOROUS (test code = PHOS) 4.8 MG/DL 2.5-4.9 N [id number] 05:08:00* Test Item Value Reference Range Interpretation Comme nts MAGNESIUM (test code = MAG) 1.9 MG/DL 1.8-2.4 N [id number] 04:46:00* Test Item Value Reference Range Interpretation Comme nts AMMONIA (test code = AMM) 11 mcMOL/L 11-32 N CBC W/AUTO [id number] 04:38:00* Test Item Value Reference Range Interpretation Comme nts WHITE BLOOD CELL (test code = WBC) 7.6 K/mm3 3.5-11.0 N RED BLOOD CELL (test code = RBC) 3.85 M/mm3 4.70-6.10 L HEMOGLOBIN (test code = HGB) 10.6 G/DL 10.4-14.9 N HEMATOCRIT (test code = HCT) 35.1 % 31.5-44.1 N MEAN CELL VOLUME (test code = MCV) 91.2 Fl 84.5-98.6 N MEAN CELL HGB (test code = MCH) 27.5 pg 27.0-34.2 N MEAN CELL HGB CONCETRATION (test code = MCHC) 30.2 G/DL 31.5-34.0 L RED CELL DISTRIBUTION WIDTH (test code = RDW) 16.9 SD 11.5-14.5 H PLATELET COUNT (test code = PLT) 365 K/mm3 150-450 N MEAN PLATELET VOLUME (test c ode = MPV) 7.90 fL 7.0-10.5 N NEUTROPHIL % (test code = NT%) 57.3 % 40-76 N IMMATURE GRANULOCYTE % (test code = IG%) 1.4 % 0.0-5.0 N LYMPHOCYTE % (test code = LY%) 27.6 % 20.5-51.1 N MONOCYTE % (test code = MO%) 10.0 % 1.7-9.3 H EOSINOPHIL % (test code = EO%) 2.9 % 0.0-6.0 N BASOPHIL % (test code = BA%) 0.8 % 0.0-2.0 N NUCLEATED RBC % (test code = NRBC%) 0.0 /100WBC% 0.0-1.0 N NEUTROPHIL # (test code = NT#) 4.4 K/mm3 1.8-7.6 N IMMATURE GRANULOCYTE # (test code = IG#) 0.11 x10 3/uL 0.00-0.03 H LYMPHOCYTE # (test code = LY#) 2.1 K/mm3 0.6-3.2 N MONOCYTE # (test code = MO#) 0.8 K/mm3 0.3-1.1 N EOSINOPHIL # (test code = EO#) 0.2 K/mm3 0.0-0.4 N BASOPHIL # (test code = BA#) 0.1 K/mm3 0.0-0.1 N NUCLEATED RBC # (test code = NRBC#) 0.0 K/mm3 0.0-0.1 N GLUCOSE BEDSIDE [id number] 20:44:00* Test Item Value Reference Range Interpretation Comme nts GLUCOSE BEDSIDE TESTING (raisa t code = GLUBED) 123 mg/dL 70-110 H GLUCOSE BEDSIDE [id number] 17:06:00* Test Item Value Reference Range Interpretation Comme nts GLUCOSE BEDSIDE TESTING (raisa t code = GLUBED) 121 mg/dL 70-110 H GLUCOSE BEDSIDE [id number] 12:17:00* Test Item Value Reference Range Interpretation Comme nts GLUCOSE BEDSIDE TESTING (raisa t code = GLUBED) 101 mg/dL 70-110 N GLUCOSE BEDSIDE [id number] 08:41:00* Test Item Value Reference Range Interpretation Comme nts GLUCOSE BEDSIDE TESTING (raisa t code = GLUBED) 100 mg/dL 70-110 N BASIC METABOLIC [id number] 05:31:00* Test Item Value Reference Range Interpretation Comme nts SODIUM (test code = NA) 140 mmol/L 136-145 N POTASSIUM (test code = K) 4.0 mmol/L 3.4-5.0 N CHLORIDE (test code = CL) 102 mmol/L 98-107 N CARBON DIOXIDE (test code = CO2) 28 mmol/L 21-32 N ANION GAP (test code = GAP) 10 GAP calc 4-15 N GLUCOSE (test code = GLU) 100 MG/DL 70-110 N BLOOD UREA NITROGEN (test code = BUN) 11 MG/DL 7-18 N GLOMERULAR FILTRATION RATE (test code = GFR) >=60 max estimate estGFR >60 The Glomerular Filtration Rate is a calculated parameterbased on serum Creatinine, patient age and sex. GFR valuesless than 60 mL/min/1.73 square meters are indicative ofChronic Kidney Disease. Values less than 15 mL/min/1.73square meters indicate Kidney failure. The calculation forGFR is based on the CKD-EPI (2020) calculation. This formulais race indifferent and is the recommended formula for GFRby the National Kidney Foundation for Adults.The GFR will not calculate if the sex is unknown or if thepatient's age is <18 years. CREATININE (test code = CREAT) 0.7 MG/DL 0.6-1.0 N CALCIUM (test code = CA) 9.4 MG/DL 8.5-10.1 N [id number] 05:31:00* Test Item Value Reference Range Interpretation Comme nts PHOSPHOROUS (test code = PHOS) 4.8 MG/DL 2.5-4.9 N [id number] 05:31:00* Test Item Value Reference Range Interpretation Comme nts MAGNESIUM (test code = MAG) 1.9 MG/DL 1.8-2.4 N CBC W/AUTO [id number] 05:05:00* Test Item Value Reference Range Interpretation Comme nts WHITE BLOOD CELL (test code = WBC) 7.6 K/mm3 3.5-11.0 N RED BLOOD CELL (test code = RBC) 4.14 M/mm3 4.70-6.10 L HEMOGLOBIN (test code = HGB) 11.1 G/DL 10.4-14.9 N HEMATOCRIT (test code = HCT) 37.3 % 31.5-44.1 N MEAN CELL VOLUME (test code = MCV) 90.1 Fl 84.5-98.6 N MEAN CELL HGB (test code = MCH) 26.8 pg 27.0-34.2 L MEAN CELL HGB CONCETRATION (test code = MCHC) 29.8 G/DL 31.5-34.0 L RED CELL DISTRIBUTION WIDTH (test code = RDW) 16.6 SD 11.5-14.5 H PLATELET COUNT (test code = PLT) 340 K/mm3 150-450 N MEAN PLATELET VOLUME (test c ode = MPV) 7.80 fL 7.0-10.5 N NEUTROPHIL % (test code = NT%) 58.8 % 40-76 N IMMATURE GRANULOCYTE % (test code = IG%) 2.2 % 0.0-5.0 N LYMPHOCYTE % (test code = LY%) 25.6 % 20.5-51.1 N MONOCYTE % (test code = MO%) 10.2 % 1.7-9.3 H EOSINOPHIL % (test code = EO%) 2.5 % 0.0-6.0 N BASOPHIL % (test code = BA%) 0.7 % 0.0-2.0 N NUCLEATED RBC % (test code = NRBC%) 0.0 /100WBC% 0.0-1.0 N NEUTROPHIL # (test code = NT#) 4.5 K/mm3 1.8-7.6 N IMMATURE GRANULOCYTE # (test code = IG#) 0.17 x10 3/uL 0.00-0.03 H LYMPHOCYTE # (test code = LY#) 1.9 K/mm3 0.6-3.2 N MONOCYTE # (test code = MO#) 0.8 K/mm3 0.3-1.1 N EOSINOPHIL # (test code = EO#) 0.2 K/mm3 0.0-0.4 N BASOPHIL # (test code = BA#) 0.1 K/mm3 0.0-0.1 N NUCLEATED RBC # (test code = NRBC#) 0.0 K/mm3 0.0-0.1 N GLUCOSE BEDSIDE [id number] 21:22:00* Test Item Value Reference Range Interpretation Comme nts GLUCOSE BEDSIDE TESTING (raisa t code = GLUBED) 122 mg/dL 70-110 H GLUCOSE BEDSIDE [id number] 17:33:00* Test Item Value Reference Range Interpretation Comme nts GLUCOSE BEDSIDE TESTING (raisa t code = GLUBED) 99 mg/dL 70-110 N GLUCOSE BEDSIDE [id number] 13:43:00* Test Item Value Reference Range Interpretation Comme nts GLUCOSE BEDSIDE TESTING (raisa t code = GLUBED) 97 mg/dL 70-110 N GLUCOSE BEDSIDE [id number] 08:43:00* Test Item Value Reference Range Interpretation Comme nts GLUCOSE BEDSIDE TESTING (raisa t code = GLUBED) 110 mg/dL 70-110 N CBC W/AUTO [id number] 00:53:00* Test Item Value Reference Range Interpretation Comme nts WHITE BLOOD CELL (test code = WBC) 6.7 K/mm3 3.5-11.0 N RED BLOOD CELL (test code = RBC) 4.15 M/mm3 4.70-6.10 L HEMOGLOBIN (test code = HGB) 11.3 G/DL 10.4-14.9 N HEMATOCRIT (test code = HCT) 36.8 % 31.5-44.1 N MEAN CELL VOLUME (test code = MCV) 88.7 Fl 84.5-98.6 N MEAN CELL HGB (test code = MCH) 27.2 pg 27.0-34.2 N MEAN CELL HGB CONCETRATION (test code = MCHC) 30.7 G/DL 31.5-34.0 L RED CELL DISTRIBUTION WIDTH (test code = RDW) 16.3 SD 11.5-14.5 H PLATELET COUNT (test code = PLT) 317 K/mm3 150-450 N MEAN PLATELET VOLUME (test c ode = MPV) 7.60 fL 7.0-10.5 N NEUTROPHIL % (test code = NT%) 58.5 % 40-76 N IMMATURE GRANULOCYTE % (test code = IG%) 4.3 % 0.0-5.0 N LYMPHOCYTE % (test code = LY%) 23.6 % 20.5-51.1 N MONOCYTE % (test code = MO%) 10.6 % 1.7-9.3 H EOSINOPHIL % (test code = EO%) 2.1 % 0.0-6.0 N BASOPHIL % (test code = BA%) 0.9 % 0.0-2.0 N NUCLEATED RBC % (test code = NRBC%) 0.0 /100WBC% 0.0-1.0 N NEUTROPHIL # (test code = NT#) 3.9 K/mm3 1.8-7.6 N IMMATURE GRANULOCYTE # (test code = IG#) 0.29 x10 3/uL 0.00-0.03 H LYMPHOCYTE # (test code = LY#) 1.6 K/mm3 0.6-3.2 N MONOCYTE # (test code = MO#) 0.7 K/mm3 0.3-1.1 N EOSINOPHIL # (test code = EO#) 0.1 K/mm3 0.0-0.4 N BASOPHIL # (test code = BA#) 0.1 K/mm3 0.0-0.1 N NUCLEATED RBC # (test code = NRBC#) 0.0 K/mm3 0.0-0.1 N BASIC METABOLIC [id number] 00:39:00* Test Item Value Reference Range Interpretation Comme nts SODIUM (test code = NA) 139 mmol/L 136-145 N POTASSIUM (test code = K) 3.8 mmol/L 3.4-5.0 N CHLORIDE (test code = CL) 103 mmol/L 98-107 N CARBON DIOXIDE (test code = CO2) 28 mmol/L 21-32 N ANION GAP (test code = GAP) 8 GAP calc 4-15 N GLUCOSE (test code = GLU) 136 MG/DL 70-110 H BLOOD UREA NITROGEN (test code = BUN) 10 MG/DL 7-18 N GLOMERULAR FILTRATION RATE (test code = GFR) >=60 max estimate estGFR >60 The Glomerular Filtration Rate is a calculated parameterbased on serum Creatinine, patient age and sex. GFR valuesless than 60 mL/min/1.73 square meters are indicative ofChronic Kidney Disease. Values less than 15 mL/min/1.73square meters indicate Kidney failure. The calculation forGFR is based on the CKD-EPI (2020) calculation. This formulais race indifferent and is the recommended formula for GFRby the National Kidney Foundation for Adults.The GFR will not calculate if the sex is unknown or if thepatient's age is <18 years. CREATININE (test code = CREAT) 0.9 MG/DL 0.6-1.0 N CALCIUM (test code = CA) 8.7 MG/DL 8.5-10.1 N [id number] 00:39:00* Test Item Value Reference Range Interpretation Comme nts PHOSPHOROUS (test code = PHOS) 4.4 MG/DL 2.5-4.9 N [id number] 00:39:00* Test Item Value Reference Range Interpretation Comme nts MAGNESIUM (test code = MAG) 2.0 MG/DL 1.8-2.4 N GLUCOSE BEDSIDE [id number] 20:54:00* Test Item Value Reference Range Interpretation Comme nts GLUCOSE BEDSIDE TESTING (raisa t code = GLUBED) 89 mg/dL 70-110 N GLUCOSE BEDSIDE [id number] 17:01:00* Test Item Value Reference Range Interpretation Comme nts GLUCOSE BEDSIDE TESTING (raisa t code = GLUBED) 84 mg/dL 70-110 N DILANTIN (PHENYTOIN)[id number] 13:06:00* Test Item Value Reference Range Interpretation Comme nts DILANTIN (PHENYTOIN) (test c ode = DIL) 13.3 mcG/ML 10.0-20.0 N CBC W/AUTO [id number] 12:33:00* Test Item Value Reference Range Interpretation Comme nts WHITE BLOOD CELL (test code = WBC) 7.8 K/mm3 3.5-11.0 N RED BLOOD CELL (test code = RBC) 4.33 M/mm3 4.70-6.10 L HEMOGLOBIN (test code = HGB) 11.6 G/DL 10.4-14.9 N HEMATOCRIT (test code = HCT) 38.4 % 31.5-44.1 N MEAN CELL VOLUME (test code = MCV) 88.7 Fl 84.5-98.6 N MEAN CELL HGB (test code = MCH) 26.8 pg 27.0-34.2 L MEAN CELL HGB CONCETRATION (test code = MCHC) 30.2 G/DL 31.5-34.0 L RED CELL DISTRIBUTION WIDTH (test code = RDW) 16.3 SD 11.5-14.5 H PLATELET COUNT (test code = PLT) 350 K/mm3 150-450 N MEAN PLATELET VOLUME (test c ode = MPV) 7.60 fL 7.0-10.5 N NEUTROPHIL % (test code = NT%) 63.8 % 40-76 N IMMATURE GRANULOCYTE % (test code = IG%) 4.7 % 0.0-5.0 N LYMPHOCYTE % (test code = LY%) 19.8 % 20.5-51.1 L MONOCYTE % (test code = MO%) 8.9 % 1.7-9.3 N EOSINOPHIL % (test code = EO%) 1.8 % 0.0-6.0 N BASOPHIL % (test code = BA%) 1.0 % 0.0-2.0 N NUCLEATED RBC % (test code = NRBC%) 0.0 /100WBC% 0.0-1.0 N NEUTROPHIL # (test code = NT#) 5.0 K/mm3 1.8-7.6 N IMMATURE GRANULOCYTE # (test code = IG#) 0.37 x10 3/uL 0.00-0.03 H LYMPHOCYTE # (test code = LY#) 1.6 K/mm3 0.6-3.2 N MONOCYTE # (test code = MO#) 0.7 K/mm3 0.3-1.1 N EOSINOPHIL # (test code = EO#) 0.1 K/mm3 0.0-0.4 N BASOPHIL # (test code = BA#) 0.1 K/mm3 0.0-0.1 N NUCLEATED RBC # (test code = NRBC#) 0.0 K/mm3 0.0-0.1 N GLUCOSE BEDSIDE [id number] 12:19:00* Test Item Value Reference Range Interpretation Comme [facility] GLUCOSE BEDSIDE TESTING (raisa t code = GLUBED) 121 mg/dL 70-110 H PERIPHERAL BLOOD [id number] 11:32:00* Test Item Value Reference Range Interpretation Comme [facility] PERIPHERAL BLOOD SMEAR (test code = PBS) RUN DATE: 10/20/24 [facility] - LAB PAGE 1 RUN TIME: 1132 Specimen Inquiry RUN USER: INTERFACE PAVEL ENT: HEATHER TURNER LOC: [place] U #: [id number] AGE/SX: 54/F ROOM: RE10/17/24[facility] DR: Gus Santamaria MD : 74 BED: DIS: STATUS: VIRI CRUZ TLOC: SPEC #: [id number] RECD: 10/18/24 STATUS: ALLIE RE #: [id number] WALDO: 10/17/[address] [facility] [address]: Gus Santamaria MD ENTERED: 10/18/24 SP TYPE: PBS OTHR DR: Alanis Provider ORDERED: [id number], ANATOMIC SPEC HISTOLOGY: TISSUE ID [id number] PCS FAZAL LEV / PROCEDURE DISPOSITION ____ ___ ___ ___ ___ Blood Smear A 1 1 TISSUES: A. Peripheral Blood Smear - Peripheral Smear FINAL DIAGNOSIS A. PERIPHERAL BLOOD, SMEAR REVIEW:- Mature leukocytes with toxic neutrophils, toxic left shift, reactive monocytes, reactive lymphocytes and occasional plasmacytoid lymphocytes suggestive of systemic infection/inflammation - Suggest viral and autoimmune serology to exclude viral infection and autoimmune disorder - Rare hypersegmented eosinophils noted; exclude vitamin B12 and folate deficiency - No significant population of circulating blasts or abnormal lymphocytes identified - Normocytic hypochromic anemia with polychromasia and poikilocytosis including occasional ovalocytes and occasional spherocytes with rouleaux formation suggestive of concurrent anemia of chronic disease and early iron deficiency - No significant population of red blood cell fragments identified - Decreased MCHC levels suggestive of early iron deficiency - Suggest iron studies with ferritin levels - Ample platelets CLINICAL INFORMATION Peripheral Smear - Signed SIGNATURE ON FILE Jeffrey Archer 10/20/24 1132 END OF REPORT GLUCOSE BEDSIDE [id number] 11:27:00* Test Item Value Reference Range Interpretation Comme nts GLUCOSE BEDSIDE TESTING (raisa t code = GLUBED) 85 mg/dL 70-110 N GLUCOSE BEDSIDE [id number] 07:54:00* Test Item Value Reference Range Interpretation Comme nts GLUCOSE BEDSIDE TESTING (raisa t code = GLUBED) 77 mg/dL 70-110 N GLUCOSE BEDSIDE [id number] 22:01:00* Test Item Value Reference Range Interpretation Comme nts GLUCOSE BEDSIDE TESTING (raisa t code = GLUBED) 95 mg/dL 70-110 N GLUCOSE BEDSIDE [id number] 12:57:00* Test Item Value Reference Range Interpretation Comme nts GLUCOSE BEDSIDE TESTING (raisa t code = GLUBED) 99 mg/dL 70-110 N GLUCOSE BEDSIDE [id number] 12:05:00* Test Item Value Reference Range Interpretation Comme nts GLUCOSE BEDSIDE TESTING (raisa t code = GLUBED) 98 mg/dL 70-110 N GLUCOSE BEDSIDE [id number] 08:26:00* Test Item Value Reference Range Interpretation Comme nts GLUCOSE BEDSIDE TESTING (raisa t code = GLUBED) 76 mg/dL 70-110 N CBC W/AUTO [id number] 06:29:00* Test Item Value Reference Range Interpretation Comme nts WHITE BLOOD CELL (test code = WBC) 6.6 K/mm3 3.5-11.0 N RED BLOOD CELL (test code = RBC) 4.15 M/mm3 4.70-6.10 L HEMOGLOBIN (test code = HGB) 11.3 G/DL 10.4-14.9 N HEMATOCRIT (test code = HCT) 37.2 % 31.5-44.1 N MEAN CELL VOLUME (test code = MCV) 89.6 Fl 84.5-98.6 N MEAN CELL HGB (test code = MCH) 27.2 pg 27.0-34.2 N MEAN CELL HGB CONCETRATION ( test code = MCHC) 30.4 G/DL 31.5-34.0 L RED CELL DISTRIBUTION WIDTH (test code = RDW) 16.5 SD 11.5-14.5 H PLATELET COUNT (test code = PLT) 312 K/mm3 150-450 N MEAN PLATELET VOLUME (test c ode = MPV) 7.70 fL 7.0-10.5 N NEUTROPHIL % (test code = NT%) % 40-76 N IMMATURE GRANULOCYTE % (test code = IG%) % 0.0-5.0 H LYMPHOCYTE % (test code = LY%) % 20.5-51.1 N MONOCYTE % (test code = MO%) % 1.7-9.3 N EOSINOPHIL % (test code = EO%) % 0.0-6.0 N BASOPHIL % (test code = BA%) % 0.0-2.0 N NUCLEATED RBC % (test code = NRBC%) /100WBC% 0.0-1.0 N NEUTROPHIL # (test code = NT#) K/mm3 1.8-7.6 N IMMATURE GRANULOCYTE # (test code = IG#) x10 3/uL 0.00-0.03 H LYMPHOCYTE # (test code = LY#) K/mm3 0.6-3.2 N MONOCYTE # (test code = MO#) K/mm3 0.3-1.1 N EOSINOPHIL # (test code = EO#) K/mm3 0.0-0.4 N BASOPHIL # (test code = BA#) K/mm3 0.0-0.1 N NUCLEATED RBC # (test code = NRBC#) K/mm3 0.0-0.1 N MANUAL DIFF REQUIRED (test c ode = MDIFF) YES DIFF/SCN CRITERIA WBC [id number] 06:29:00* Test Item Value Reference Range Interpretation Comme nts SEGMENTED NEUTROPHILS (test code = SEG) 63 % 40-75 N LYMPHOCYTE (test code = LYMPH) 22 % 18.7-40.6 N ATYPICAL LYMPH (test code = ALYMPH) 7 % 0-0 H MONOCYTE (test code = MON) 4 % 3.8-11.4 N EOSINOPHIL (test code = EOS) 3 % 0.0-4.1 N METAMYELOCYTE (test code = META) 1 % 0-2 N ANISOCYTOSIS (test code = ANISO) NORMAL NONE PLATELET ESTIMATE (test code = PLTEST) ADEQUATE THOUSAND ADEQUATE PLATELET MORPHOLOGY (test code = PLTMORPH) NORMAL COMPREHENSIVE METABOLIC [id number] 05:19:00* Test Item Value Reference Range Interpretation Comme nts SODIUM (test code = NA) 138 mmol/L 136-145 N POTASSIUM (test code = K) 4.4 mmol/L 3.4-5.0 N CHLORIDE (test code = CL) 105 mmol/L 98-107 N CARBON DIOXIDE (test code = CO2) 27 mmol/L 21-32 N ANION GAP (test code = GAP) 6 GAP calc 4-15 N GLUCOSE (test code = GLU) 83 MG/DL 70-110 N BLOOD UREA NITROGEN (test code = BUN) 10 MG/DL 7-18 N GLOMERULAR FILTRATION RATE (test code = GFR) >=60 max estimate estGFR >60 The Glomerular Filtration Rate is a calculated parameterbased on serum Creatinine, patient age and sex. GFR valuesless than 60 mL/min/1.73 square meters are indicative ofChronic Kidney Disease. Values less than 15 mL/min/1.73square meters indicate Kidney failure. The calculation forGFR is based on the CKD-EPI (202) calculation. This formulais race indifferent and is the recommended formula for GFRby the National Kidney Foundation for Adults.The GFR will not calculate if the sex is unknown or if thepatient's age is <18 years. CREATININE (test code = CREAT) 0.8 MG/DL 0.6-1.0 N TOTAL PROTEIN (test code = PROT) 6.9 G/DL 6.4-8.2 N ALBUMIN (test code = ALB) 3.0 G/DL 3.4-5.0 L GLOBULIN (test code = GLOB) 3.9 GM/dL ALBUMIN/GLOBULIN RATIO (test code = A/G) 0.8 RATIO 1.2-2.2 L CALCIUM (test code = CA) 8.7 MG/DL 8.5-10.1 N BILIRUBIN TOTAL (test code = BILT) 0.1 MG/DL 0.0-1.0 N SGOT/AST (test code = AST) 17 Unit/L 15-37 N SGPT/ALT (test code = ALT) 14 Unit/L 30-65 L ALKALINE PHOSPHATASE TOTAL (test code = ALKP) 70 Unit/L 50-136 N GLUCOSE BEDSIDE [id number] 20:46:00* Test Item Value Reference Range Interpretation Comme nts GLUCOSE BEDSIDE TESTING (raisa t code = GLUBED) 164 mg/dL 70-110 H GLUCOSE BEDSIDE [id number] 16:16:00* Test Item Value Reference Range Interpretation Comme nts GLUCOSE BEDSIDE TESTING (raisa t code = GLUBED) 114 mg/dL 70-110 H GLUCOSE BEDSIDE [id number] 09:40:00* Test Item Value Reference Range Interpretation Comme nts GLUCOSE BEDSIDE TESTING (raisa t code = GLUBED) 91 mg/dL 70-110 N CBC W/AUTO [id number] 06:23:00* Test Item Value Reference Range Interpretation Comme nts WHITE BLOOD CELL (test code = WBC) 9.2 K/mm3 3.5-11.0 N RED BLOOD CELL (test code = RBC) 3.99 M/mm3 4.70-6.10 L HEMOGLOBIN (test code = HGB) 10.7 G/DL 10.4-14.9 N HEMATOCRIT (test code = HCT) 35.1 % 31.5-44.1 N MEAN CELL VOLUME (test code = MCV) 88.0 Fl 84.5-98.6 N MEAN CELL HGB (test code = MCH) 26.8 pg 27.0-34.2 L MEAN CELL HGB CONCETRATION ( test code = MCHC) 30.5 G/DL 31.5-34.0 L RED CELL DISTRIBUTION WIDTH (test code = RDW) 16.4 SD 11.5-14.5 H PLATELET COUNT (test code = PLT) 326 K/mm3 150-450 N MEAN PLATELET VOLUME (test c ode = MPV) 8.20 fL 7.0-10.5 N NEUTROPHIL % (test code = NT%) % 40-76 N IMMATURE GRANULOCYTE % (test code = IG%) % 0.0-5.0 H LYMPHOCYTE % (test code = LY%) % 20.5-51.1 L MONOCYTE % (test code = MO%) % 1.7-9.3 N EOSINOPHIL % (test code = EO%) % 0.0-6.0 N BASOPHIL % (test code = BA%) % 0.0-2.0 N NUCLEATED RBC % (test code = NRBC%) /100WBC% 0.0-1.0 N NEUTROPHIL # (test code = NT#) K/mm3 1.8-7.6 N IMMATURE GRANULOCYTE # (test code = IG#) x10 3/uL 0.00-0.03 H LYMPHOCYTE # (test code = LY#) K/mm3 0.6-3.2 N MONOCYTE # (test code = MO#) K/mm3 0.3-1.1 N EOSINOPHIL # (test code = EO#) K/mm3 0.0-0.4 N BASOPHIL # (test code = BA#) K/mm3 0.0-0.1 N NUCLEATED RBC # (test code = NRBC#) K/mm3 0.0-0.1 N MANUAL DIFF REQUIRED (test c ode = MDIFF) YES DIFF/SCN CRITERIA WBC [id number] 06:23:00* Test Item Value Reference Range Interpretation Comme nts SEGMENTED NEUTROPHILS (test code = SEG) 61 % 40-75 N LYMPHOCYTE (test code = LYMPH) 30 % 18.7-40.6 N ATYPICAL LYMPH (test code = ALYMPH) 3 % 0-0 H MONOCYTE (test code = MON) 3 % 3.8-11.4 L EOSINOPHIL (test code = EOS) 3 % 0.0-4.1 N ANISOCYTOSIS (test code = ANISO) NORMAL NONE PLATELET ESTIMATE (test code = PLTEST) ADEQUATE THOUSAND ADEQUATE PLATELET MORPHOLOGY (test code = PLTMORPH) NORMAL LACTIC [id number] 05:16:00* Test Item Value Reference Range Interpretation Comme nts LACTIC ACID (test code = LACT) 1.1 mmol/L 0.4-1.9 N BASIC METABOLIC [id number] 05:08:00* Test Item Value Reference Range Interpretation Comme nts SODIUM (test code = NA) 143 mmol/L 136-145 N POTASSIUM (test code = K) 3.7 mmol/L 3.4-5.0 N CHLORIDE (test code = CL) 108 mmol/L 98-107 H CARBON DIOXIDE (test code = CO2) 26 mmol/L 21-32 N ANION GAP (test code = GAP) 9 GAP calc 4-15 N GLUCOSE (test code = GLU) 70 MG/DL 70-110 N BLOOD UREA NITROGEN (test code = BUN) 9 MG/DL 7-18 N GLOMERULAR FILTRATION RATE (test code = GFR) >=60 max estimate estGFR >60 The Glomerular Filtration Rate is a calculated parameterbased on serum Creatinine, patient age and sex. GFR valuesless than 60 mL/min/1.73 square meters are indicative ofChronic Kidney Disease. Values less than 15 mL/min/1.73square meters indicate Kidney failure. The calculation forGFR is based on the CKD-EPI (2020) calculation. This formulais race indifferent and is the recommended formula for GFRby the National Kidney Foundation for Adults.The GFR will not calculate if the sex is unknown or if thepatient's age is <18 years. CREATININE (test code = CREAT) 0.7 MG/DL 0.6-1.0 N CALCIUM (test code = CA) 7.4 MG/DL 8.5-10.1 L LACTIC [id number] 23:48:00* Test Item Value Reference Range Interpretation Comme nts LACTIC ACID (test code = LACT) 2.70 mmol/L 0.5-2.0 HH Critical Value r eported toFirst Name:GURU Last Name:KELLIE READ BACK AND VERIFIEDby [id number], on 10/17/24, @ 6042. COVID 19 INHOUSE [id number] 20:41:00* Test Item Value Reference Range Interpretation Comme nts COVID 19 INHOUSE AG (test co de = [id number]) NEGATIVE NEGATIVE CBC W/MANUAL [id number] 20:37:00* Test Item Value Reference Range Interpretation Comme nts WHITE BLOOD CELL (test code = WBC) 8.3 x10 3/uL 4.8-10.8 N RED BLOOD CELL (test code = RBC) 4.44 x10 6/uL 4.20-5.40 N HEMOGLOBIN (test code = HGB) 11.9 g/dL 12.0-16.0 L HEMATOCRIT (test code = HCT) 38.1 % 37.0-47.0 N MEAN CELL VOLUME (test code = MCV) 85.8 fL 81.0-99.0 N MEAN CELL HGB (test code = MCH) 26.8 pg 27-31 L MEAN CELL HGB CONCENTRATION (test code = MCHC) 31.2 G/DL 33-36.5 L RED CELL DISTRIBUTION WIDTH (test code = RDW) 16.4 % 12.9-16.9 N PLATELET COUNT (test code = PLT) 377 x10 3/uL 150-440 N MEAN PLATELET VOLUME (test c ode = MPV) 7.9 fL 8.9-12.4 L TOTAL CELLS COUNTED (test co de = TCC) 100 #CELLS SEGMENTED NEUTROPHILS (test code = SEG) 59 % 49-71 N LYMPHOCYTE (test code = LYMPH) 12 % 20-40 L BAND NEUTROPHIL (test code = BAND) 2 % 0-5 N ATYPICAL LYMPH (test code = ALYMPH) 9 % 0-1 H MONOCYTE (test code = MON) 12 % 3-8 H PROMYELOCYTE (test code = PROM) 1 % 0-0 H BLAST (test code = BLAST) 5 % 0-0 H B-TYPE NATRIURETIC [id number] 20:36:00* Test Item Value Reference Range Interpretation Comme nts B-TYPE NATRIURETIC PEPTIDE ( test code = BNP) 44 pg/mL <100 N LACTIC [id number] 20:19:00* Test Item Value Reference Range Interpretation Comme nts LACTIC ACID (test code = LACT) 3.10 mmol/L 0.5-2.0 HH Critical Value r eported toFirst Name:ANDREA Last Name:ENLOERESULTS READ BACK AND VERIFIEDby MARTHA, on 10/17/24, @ 2019. BASIC METABOLIC [id number] 20:18:00* Test Item Value Reference Range Interpretation Comme nts SODIUM (test code = NA) 140 mmol/L 136-145 N POTASSIUM (test code = K) 4.3 mmol/L 3.5-5.1 N CHLORIDE (test code = CL) 101 mmol/l 98-107 N CARBON DIOXIDE (test code = CO2) 27 mmol/L 20-31 N GLUCOSE (test code = GLU) 89 mg/dL 74-106 N BLOOD UREA NITROGEN (test code = BUN) 11 mg/dL 9-23 N GLOMERULAR FILTRATION RATE (test code = GFR) >=60 max estimate mL/min >60 The Glomerular Filtration Rate is a calculated parameterbased on serum Creatinine, patient age and sex. GFR valuesless than 60 mL/min/1.73 square meters are indicative ofChronic Kidney Disease. Values less than 15 mL/min/1.73square meters indicate Kidney failure. The calculation forGFR is based on the CKD-EPI (2020) calculation. This formulais race indifferent and is the recommended formula for GFRby the National Kidney Foundation for Adults.The GFR will not calculate if the sex is unknown or if thepatient's age is <18 years. CREATININE (test code = CREAT) 0.80 mg/dL 0.55-1.02 N CALCIUM (test code = CA) 8.9 mg/dL 8.7-10.4 N LIVER FUNCTION [id number] 20:18:00* Test Item Value Reference Range Interpretation Comme nts TOTAL PROTEIN (test code = PROT) 6.9 g/dL 5.7-8.2 N ALBUMIN (test code = ALB) 4.2 g/dL 3.2-4.8 N BILIRUBIN TOTAL (test code = BILT) < 0.2 mg/dL 0.3-1.2 L BILIRUBIN DIRECT (test code = BILD) < 0.1 mg/dL <0.3 N SGOT/AST (test code = AST) 18 U/L <34 N SGPT/ALT (test code = ALT) 9 U/L 10-49 L ALKALINE PHOSPHATASE (test c ode = ALKP) 71.0 U/L 46-116 N CREATINE KINASE (CK)2024-10-17 20:18:00* Test Item Value Reference Range Interpretation Comme nts CREATINE KINASE (CK) (test code = CK) 230 U/L 34-171 H VALPROIC ACID (DEPAKENE)2024-10-17 20:18:00* Test Item Value Reference Range Interpretation Comme nts VALPROIC ACID (DEPAKENE) (test code = VALP) 100 mcg/mL 50.0-100.0 N Critical Value reported toFirst Name:ANDREALasleah Name:ENLOERESULTS READ BACK AND VERIFIEDby MARTHA, on 10/17/24, @ 2017.Please note: New Reference Range Aug 2020 [id number] 20:18:00* Test Item Value Reference Range Interpretation Comme nts ALCOHOL (test code = ALC) < 3 mg/dL 0-400 N [id number] 20:16:00* Test Item Value Reference Range Interpretation Comme nts TROPONIN-I (test code = TROPI) 7.5 pg/mL 27.36-66.23 L CBC W/AUTO [id number] 20:08:00* Test Item Value Reference Range Interpretation Comme nts WHITE BLOOD CELL (test code = WBC) 8.3 x10 3/uL 4.8-10.8 N RED BLOOD CELL (test code = RBC) 4.44 x10 6/uL 4.20-5.40 N HEMOGLOBIN (test code = HGB) 11.9 g/dL 12.0-16.0 L HEMATOCRIT (test code = HCT) 38.1 % 37.0-47.0 N MEAN CELL VOLUME (test code = MCV) 85.8 fL 81.0-99.0 N MEAN CELL HGB (test code = MCH) 26.8 pg 27-31 L MEAN CELL HGB CONCENTRATION (test code = MCHC) 31.2 G/DL 33-36.5 L RED CELL DISTRIBUTION WIDTH (test code = RDW) 16.4 % 12.9-16.9 N PLATELET COUNT (test code = PLT) 377 x10 3/uL 150-440 N MEAN PLATELET VOLUME (test c ode = MPV) 7.9 fL 8.9-12.4 L NEUTROPHIL % (test code = NT%) % 42.2-75.2 LYMPHOCYTE % (test code = LY%) % 20.5-51.1 MONOCYTE % (test code = MO%) % 1.7-9.3 EOSINOPHIL % (test code = EO%) % 0.0-7.0 BASOPHIL % (test code = BA%) % 0-2.5 NEUTROPHIL # (test code = NT#) x10 3/uL 1.80-7.70 LYMPHOCYTE # (test code = LY#) x10 3/uL 1.00-4.80 MONOCYTE # (test code = MO#) x10 3/uL 0.00-0.80 EOSINOPHIL # (test code = EO#) x10 3/uL 0.00-0.45 POC [id number] 05:35:24* Test Item Value Reference Range Interpretation Comme nts POC Glu (test code = 8449783698) 113 mg/dL 70-99 H POC Performing Location (raisa t code = 9129744399) H1 ER Lab Interpretation (test cod e = 92888-8) Abnormal [facility] EpicN-Terminal [id number] 02:35:03* Test Item Value Reference Range Interpretation Comme nts NT-proBNP (test code = 72706-0) 2090 pg/mL <=125 H LYNDSAY (test code = LYNDSAY) Positive: Heart Failure Likely Lab Interpretation (test code = 46556-3) Abnormal [facility] Metabolic Panel (NA, K, CL, CO2, GLUCOSE, BUN, CREATININE, CA)2024-04-03 02:26:01* Test Item Value Reference Range Interpretation Comme nts NA (test code = 2271821709) 136 mmol/L 135-145 K (test code = 9053000175) 3.2 mmol/L 3.5-5.0 L CL (test code = 3424838877) 101 mmol/L 98-108 CO2 TOTAL (test code = 4367392993) 23 mmol/L 23-31 AGAP (test code = 6280039896) 12 2-16 BUN (test code = 9066192177) 4 mg/dL 7-23 L GLUCOSE (test code = 2042009923) 165 mg/dL 70-110 H CREATININE (test code = 2160-0) 0.67 mg/dL 0.50-1.04 CALCIUM (test code = 2717567792) 8.5 mg/dL 8.6-10.6 L eGFR (test code = 72852-5) 105.3 mL/min/1.73m2 CKD-EPI eGFR (2020). Assuming creatinine has been stable day-to-day for at least three months, the eGFR indicates Category G1 (>= 90 mL/min/1.73 m2) Lab Interpretation (test code = 30041-8) Abnormal [facility] with [id number] 02:19:04* Test Item Value Reference Range Interpretation [...] g/dL 31.6-35.1 L RDW-SD (test code = 71990-6) 53.9 fL 39.0-49.9 H RDW-CV (test code = 788-0) 18.2 % 12.0-15.5 H PLT (test code = 777-3) 458 166-358 H MPV (test code = 51627-9) 8.6 fL 9.5-12.9 L NRBC/100 WBC (test code = 4270289782) 0.0 0.0-10.0 NRBC x10^3 (test code = 0985066734) See_Comment [Automated messa ge] The system which generated this result transmitted reference range: 10*3/?L. The reference range was not used to interpret this result as normal/abnormal. GRAN MAT (NEUT) % (test code = 770-8) 62.8 % IMM GRAN % (test code = 9856463165) 0.40 % LYMPH % (test code = 736-9) 28.0 % MONO % (test code = 5905-5) 6.5 % EOS % (test code = 713-8) 1.3 % BASO % (test code = 706-2) 1.0 % GRAN MAT x10^3(ANC) (test code = 5641944414) 4.36 10*3/uL 1.88-7.09 IMM GRAN x10^3 (test code = 1512344616) 0.03 10*3/uL 0.00-0.06 LYMPH x10^3 (test code = 731-0) 1.94 10*3/uL 1.32-3.29 MONO x10^3 (test code = 742-7) 0.45 10*3/uL 0.33-0.92 EOS x10^3 (test code = 711-2) 0.09 10*3/uL 0.03-0.39 BASO x10^3 (test code = 704-7) 0.07 10*3/uL 0.01-0.07 Lab Interpretation (test code = 47329-5) [facility] [id number] 02:05:20* Test Item Value Reference Range Interpretation Comme nts LACTIC ACID (test code = 0506207159) 2.61 mmol/L 0.50-2.20 H Lab Interpretation (test cod e = 43896-6) Abnormal [facility] [id number] 04:25:23* Test Item Value Reference Range Interpretation Comme nts TROPONIN I (test code = 4194264900) 0.004 ng/mL <=0.034 LYNDSAY (test code = [...] of biotin. Lab Interpretation (test code = 14260-2) Normal [facility]. Metabolic Panel (93155)2024-01-13 04:13:41* Test Item Value Reference Range Interpretation Comme nts NA (test code = 3822346108) 140 mmol/L 135-145 K (test code = 6260965414) 3.7 mmol/L 3.5-5.0 CL (test code = 0980427912) 103 mmol/L 98-108 CO2 TOTAL (test code = 4617953531) 25 mmol/L 23-31 AGAP (test code = 0279354981) 12 2-16 BUN (test code = 1342227120) 12 mg/dL 7-23 GLUCOSE (test code = 9487122259) 143 mg/dL 70-110 H CREATININE (test code = 2160-0) 0.91 mg/dL 0.50-1.04 TOTAL BILI (test code = 1030606617) 0.4 mg/dL 0.1-1.1 CALCIUM (test code = 8094349332) 9.0 mg/dL 8.6-10.6 T PROTEIN (test code = 2521096674) 7.7 g/dL 6.3-8.2 ALBUMIN (test code = 2714355991) 4.2 g/dL 3.5-5.0 ALK PHOS (test code = 7840332344) 93 U/L 34-122 ALTv (test code = 1742-6) 9 U/L 5-35 AST(SGOT) (test code = 2842810508) 18 U/L 13-40 eGFR (test code = 52645-5) 76.5 mL/min/1.73m2 CKD-EPI eGFR (2020). Assuming creatinine has been stable day-to-day for at least three months, the eGFR indicates Category G2 (60 - 89 mL/min/1.73 m2) Lab Interpretation (test code = 74332-0) Abnormal [facility] with [id number] 03:58:19* Test Item Value Reference Range Interpretation [...] g/dL 31.6-35.1 L RDW-SD (test code = 43833-4) 59.0 fL 39.0-49.9 H RDW-CV (test code = 788-0) 18.7 % 12.0-15.5 H PLT (test code = 777-3) 394 166-358 H MPV (test code = 59485-2) 8.5 fL 9.5-12.9 L NRBC/100 WBC (test code = 5061790404) 0.0 0.0-10.0 NRBC x10^3 (test code = 1673595198) See_Comment [Automated messa ge] The system which generated this result transmitted reference range: 10*3/?L. The reference range was not used to interpret this result as normal/abnormal. GRAN MAT (NEUT) % (test code = 770-8) 60.6 % IMM GRAN % (test code = 5867541027) 1.40 % LYMPH % (test code = 736-9) 26.9 % MONO % (test code = 5905-5) 8.7 % EOS % (test code = 713-8) 1.8 % BASO % (test code = 706-2) 0.6 % GRAN MAT x10^3(ANC) (test code = 6523284552) 5.14 10*3/uL 1.88-7.09 IMM GRAN x10^3 (test code = 1577586411) 0.12 10*3/uL 0.00-0.06 H LYMPH x10^3 (test code = 731-0) 2.28 10*3/uL 1.32-3.29 MONO x10^3 (test code = 742-7) 0.74 10*3/uL 0.33-0.92 EOS x10^3 (test code = 711-2) 0.15 10*3/uL 0.03-0.39 BASO x10^3 (test code = 704-7) 0.05 10*3/uL 0.01-0.07 Lab Interpretation (test code = 72522-2) [facility]normal [facility] 16:40:03* Test Item Value Reference Range Interpretation Comme nts Height (test code = 6600462396) 62 in Weight (test code = 1835983499) 200 lbs Systolic BP (test code = 9325209896) 90 mmHg Diastolic BP (test code = 8384579407) 66 mmHg Heart Rate (test code = 8541291932) 69 bpm BSA (test code = 7642754491) 1.91 m2 LVOT diameter (test code = 2750679680) 2.13 cm LVOT area (test code = 8656248846) 3.60 cm2 LA size (test code = 1525503029) 3.5 cm LAV(MOD-sp4) (test code = 0363775396) 55.70 mL E wave decelartion time (test code = 0856287120) 0.12 s MV stenosis pressure 1/2 time (test code = 7057932756) 35.0 ms MV Peak A Evette (test code = 8437532163) 117.0 cm/s MV Peak E Evette (test code = 7388946830) 94.3 cm/s E/A ratio (test code = 7745289413) 0.81 ratio MV E/e' septal (test code = 9077257988) 10.2 cm/s LVOT stroke volume (test code = 6218801742) 59.50 cm3 LVOT peak evette (test code = 4244389075) 99.8 cm/s LVOT mn grad (test code = 7501320201) 1.9 mmHg AV LVOT peak gradient (test code = 7055693462) 4.0 mmHg LVOT peak VTI (test code = 0506623458) 16.7 cm LV V1 mean (test code = 8692209081) 64.40 cm/s Aortic valve mean velocity (test code = 2324343489) 155.3 cm/s Ao peak evette (test code = 8723729773) 222.6 cm/s Ao VTI (test code = 8332388247) 33.6 cm AV area by cont VTI (test code = 0195810264) 1.8 cm2 AV area peak evette (test code = 6261795172) 1.6 cm2 Ao max PG (test code = 1639104238) 19.80 mm[Hg] AV peak gradient (test code = 1410074072) 19.8 mmHg AV valve area (test code = 2039356934) 1.77 cm2 AV mean gradient (test code = 5783011997) 10.6 mmHg AV regurgitation pressure 1/2 time (test code = 0415243147) 651.6 ms AI dec slope (test code = 9284490479) 180.60 cm/s2 AI max evette (test code = 3518017981) 401.80 cm/s AI max PG (test code = 7315539018) 64.60 mm[Hg] LVIDD (test code = 5902708118) 4.90 cm Left Ventricular End Diastolic Volume by Teichholz Method (test code = 7956485) 114.6 mL IVS (test code = 6725164683) 1.17 cm Interventricular Septum Diastolic Thickness by 2D (test code = 6566468) 1.17 cm LVPWD (test code = 3874198537) 1.17 cm PW (test code = 6282493877) 1.17 cm 0.6-1.1 EF(Teich) (test code = 2684967380) 20.70 % LVIDS (test code = 1766605868) 4.50 cm Left Ventricular End Systolic Volume by Teichholz Method (test code = 5781515) 90.9 mL FS (test code = 0563773992) 9 % EF - 2D (test code = 87101891) 20.70 % Radiology Study observation (narrative) (test code = 13783-1) LYNDSAY (test code = LYNDSAY) ?Left?Ventricle: Left [...] of Optison ultrasound enhancing agent used. [facility] Whole [id number] 02:02:28* Test Item Value Reference Range Interpretation Comme nts LACTIC ACID (test code = 3239926103) 1.36 mmol/L 0.50-2.20 Lab Interpretation (test cod e = 20386-2) Normal [facility] [id number] 01:16:45CTA CHEST WITH IV CONTRAST ORDERING PHYSICIAN: [...] ACDF hardware in the lower cervical spine.[facility] HospitalXR CHEST 1 [id number] 23:07:58Exam: Chest (1 View), 01/09/2024 4:15 PM. Ordering Physician: OLENA DOYLE. History: Chest Pain. Technique: One view of the chest. Comparison: 12/14/2023. Findings: Cardiac silhouette is mildly enlarged. There is no pneumothorax. There isno consolidation or pleural effusion. Pleural and diaphragmatic contoursare normal. Calcified granuloma is seen in the left upper lobe. Changes ofanterior cervical discectomy and fusion are seen.[facility] HospitalTRAN[facility] HOSPITALNIN [id number] 22:51:19* Test Item Value Reference Range Interpretation Comme nts TROPONIN I (test code = 8901787264) 0.006 ng/mL <=0.034 LYNDSAY (test code = [...] of biotin. Lab Interpretation (test code = 36455-6) Normal [facility]N-TERMINAL [id number] 22:48:38* Test Item Value Reference Range Interpretation Comme nts NT-proBNP (test code = 42417-4) 877 pg/mL <=125 LYNDSAY (test code = LYNDSAY) Result Indeterminate-Consid er causes of NT-proBNP elevation other than Heart failure such as acute coronary syndrome, pulmonary embolism, pulmonary hypertension, sepsis, stroke, and renal dysfunction. Lab Interpretation (test code = 21707-4) Abnormal [facility]. METABOLIC PANEL (59745)2024-01-09 22:42:20* Test Item Value Reference Range Interpretation Comme nts NA (test code = 8207961216) 137 mmol/L 135-145 K (test code = 5864462052) 3.8 mmol/L 3.5-5.0 CL (test code = 2521017474) 104 mmol/L 98-108 CO2 TOTAL (test code = 7108134732) 25 mmol/L 23-31 AGAP (test code = 1907664547) 8 2-16 BUN (test code = 1542753433) 7 mg/dL 7-23 GLUCOSE (test code = 2439061327) 96 mg/dL 70-110 CREATININE (test code = 2160-0) 0.60 mg/dL 0.50-1.04 TOTAL BILI (test code = 8451055935) 0.4 mg/dL 0.1-1.1 CALCIUM (test code = 2014329113) 8.7 mg/dL 8.6-10.6 T PROTEIN (test code = 4015412488) 7.0 g/dL 6.3-8.2 ALBUMIN (test code = 0028123272) 3.9 g/dL 3.5-5.0 ALK PHOS (test code = 8480031545) 101 U/L 34-122 ALTv (test code = 1742-6) 7 U/L 5-35 AST(SGOT) (test code = 8423973425) 20 U/L 13-40 eGFR (test code = 65519-9) 108.8 mL/min/1.73m2 CKD-EPI eGFR (20 21). Assuming creatinine has been stable day-to-day for at least three months, the eGFR indicates Category G1 (>= 90 mL/min/1.73 m2) [facility] HospitalD-DFTPQ2883-76-05 22:28:57* Test Item Value Reference Range Interpretation Comments D-DIMER (test code = 6645425845) 0.87 See_Comment H [Automated message] The system [...] a diagnosis. Lab Interpretation (test code = 26901-3) Abnormal [facility] WITH [id number] 22:09:01* Test Item Value Reference Range Interpretation [...] g/dL 31.6-35.1 L RDW-SD (test code = 91551-2) 58.1 fL 39.0-49.9 H RDW-CV (test code = 788-0) 18.6 % 12.0-15.5 H PLT (test code = 777-3) 312 166-358 MPV (test code = 16615-7) 8.3 fL 9.5-12.9 L NRBC/100 WBC (test code = 5767021680) 0.0 0.0-10.0 NRBC x10^3 (test code = 4853107432) See_Comment [Automated [employer] ge] The system which generated this result transmitted reference range: 10*3/?L. The reference range was not used to interpret this result as normal/abnormal. GRAN MAT (NEUT) % (test code = 770-8) 60.1 % IMM GRAN % (test code = 1261097848) 0.70 % LYMPH % (test code = 736-9) 27.3 % MONO % (test code = 5905-5) 10.1 % EOS % (test code = 713-8) 1.2 % BASO % (test code = 706-2) 0.6 % GRAN MAT x10^3(ANC) (test code = 8305191785) 5.12 10*3/uL 1.88-7.09 IMM GRAN x10^3 (test code = 0905105899) 0.06 10*3/uL 0.00-0.06 LYMPH x10^3 (test code = 731-0) 2.33 10*3/uL 1.32-3.29 MONO x10^3 (test code = 742-7) 0.86 10*3/uL 0.33-0.92 EOS x10^3 (test code = 711-2) 0.10 10*3/uL 0.03-0.39 BASO x10^3 (test code = 704-7) 0.05 10*3/uL 0.01-0.07 Lab Interpretation (test code = 15331-4) Abnormal [facility] GLUCOSE (AUTOMATED)2023-12-15 12:45:21* Test Item Value Reference Range Interpretation Comme nts POCT GLU (test code = 3614675197) 144 mg/dL 70-110 H Lab Interpretation (test cod e = 72553-7) Abnormal [facility] HospitalThyroid Stimulating [id number] 01:46:59 * Test Item Value Reference Range Interpretation Comme nts TSH (test code = 3402622475) 1.14 0.45-4.70 Lab Interpretation (test cod e = 72334-3) Normal [facility] HospitalFR [id number] 01:33:00* Test Item Value Reference Range Interpretation Comme nts FREE T3 (test code = 1986754905) 3.68 pg/mL 2.77-5.27 Lab Interpretation (test cod e = 16353-6) Normal [facility] GLUCOSE (AUTOMATED)2023-12-15 00:57:48* Test Item Value Reference Range Interpretation Comme nts POCT GLU (test code = 9788470745) 131 mg/dL 70-110 H Lab Interpretation (test cod e = 66091-1) Abnormal [facility] [id number] 21:45:52* Test Item Value Reference Range Interpretation Comme nts TROPONIN I (test code = 4438843230) 0.009 ng/mL <=0.034 LYNDSAY (test code = [...] of biotin. Lab Interpretation (test code = 66186-2) Normal [facility]. Metabolic Panel (54919)2023-12-14 20:19:49* Test Item Value Reference Range Interpretation Comme nts NA (test code = 7654091794) 138 mmol/L 135-145 K (test code = 4265010990) 3.5 mmol/L 3.5-5.0 CL (test code = 9805390705) 108 mmol/L 98-108 CO2 TOTAL (test code = 2596675539) 24 mmol/L 23-31 AGAP (test code = 0230520815) 6 2-16 BUN (test code = 3551218244) 7 mg/dL 7-23 GLUCOSE (test code = 2010582078) 96 mg/dL 70-110 CREATININE (test code = 2160-0) 0.51 mg/dL 0.50-1.04 TOTAL BILI (test code = 9465820153) 0.4 mg/dL 0.1-1.1 CALCIUM (test code = 7893293175) 8.6 mg/dL 8.6-10.6 T PROTEIN (test code = 1097538327) 6.8 g/dL 6.3-8.2 ALBUMIN (test code = 8616102634) 3.8 g/dL 3.5-5.0 ALK PHOS (test code = 7491351086) 107 U/L 34-122 ALTv (test code = 1742-6) 13 U/L 5-35 AST(SGOT) (test code = 3856939558) 28 U/L 13-40 eGFR (test code = 28827-6) 113.2 mL/min/1.73m2 CKD-EPI eGFR (20 21). Assuming creatinine has been stable day-to-day for at least three months, the eGFR indicates Category G1 (>= 90 mL/min/1.73 m2) [id number] 20:15:27* Test Item Value Reference Range Interpretation Comme nts TROPONIN I (test code = 5315719190) 0.009 ng/mL <=0.034 LYNDSAY (test code = [...] of biotin. Lab Interpretation (test code = 32748-2) Normal [facility]-[id number] 20:12:51* Test Item Value Reference Range Interpretation Comme [facility] NT-proBNP (test code = 35467-7) 2250 pg/mL <=125 H LYNDSAY (test code = LYNDSAY) Positive: Heart Failure Likely Lab Interpretation (test code = 43935-0) [facility] 1 [id number] 20:00:17EXAM: XR CHEST 1 VW COMPARISON: 12/02/2023 HISTORY: 53 years-old Female; shortness of breath FINDINGS: Lungs: The lung volumes are normal. Left upper lung calcified granuloma. Nofocal opacities. No pneumothorax. No pleural effusion. Heart/Mediastinum: The cardiac silhouette appears normal. Bones andsoft tissues: No acute osseous findings are detected.Redemonstrated ACDF projecting over the lower cervical spine.[facility]uk5061-[facility]-88 19:45:05* Test Item Value Reference Range Interpretation Comments D-DIMER (test code = 9253213046) 1.33 See_Comment H [Automated message] The system [...] a diagnosis. Lab Interpretation (test code = 99850-6) Abnormal [facility] with [id number] 19:39:29* Test Item Value Reference Range Interpretation [...] g/dL 31.6-35.1 L RDW-SD (test code = 80986-0) 70.2 fL 39.0-49.9 H RDW-CV (test code = 788-0) 21.6 % 12.0-15.5 H PLT (test code = 777-3) 259 166-358 MPV (test code = 70720-4) 8.7 fL 9.5-12.9 L NRBC/100 WBC (test code = 5176099759) 0.0 0.0-10.0 NRBC x10^3 (test code = 9738774670) See_Comment [Automated messa ge] The system which generated this result transmitted reference range: 10*3/?L. The reference range was not used to interpret this result as normal/abnormal. GRAN MAT (NEUT) % (test code = 770-8) 57.7 % IMM GRAN % (test code = 7203647569) 0.40 % LYMPH % (test code = 736-9) 30.2 % MONO % (test code = 5905-5) 9.9 % EOS % (test code = 713-8) 0.8 % BASO % (test code = 706-2) 1.0 % GRAN MAT x10^3(ANC) (test code = 2461388523) 4.17 10*3/uL 1.88-7.09 IMM GRAN x10^3 (test code = 1682503922) 0.03 10*3/uL 0.00-0.06 LYMPH x10^3 (test code = 731-0) 2.19 10*3/uL 1.32-3.29 MONO x10^3 (test code = 742-7) 0.72 10*3/uL 0.33-0.92 EOS x10^3 (test code = 711-2) 0.06 10*3/uL 0.03-0.39 BASO x10^3 (test code = 704-7) 0.07 10*3/uL 0.01-0.07 Lab Interpretation (test code = 25929-1) [facility] 21:30:58* Test Item Value Reference Range Interpretation Comme [facility] POCT GLU (test code = 0809979386) 102 mg/dL 70-110 Lab Interpretation (test cod e = 53706-3) Normal [facility] Metabolic Panel (NA, K, CL, CO2, GLUCOSE, BUN, CREATININE, CA)2023-12-03 18:22:31* Test Item Value Reference Range Interpretation Comme [facility] NA (test code = 2851559241) 135 mmol/L 135-145 K (test code = 9174322279) 3.9 mmol/L 3.5-5.0 CL (test code = 5647960475) 103 mmol/L 98-108 CO2 TOTAL (test code = 9924218990) 29 mmol/L 23-31 AGAP (test code = 6277878032) 3 2-16 BUN (test code = 6695663640) 12 mg/dL 7-23 GLUCOSE (test code = 4412261202) 85 mg/dL 70-110 CREATININE (test code = 2160-0) 0.63 mg/dL 0.50-1.04 CALCIUM (test code = 7708113730) 8.7 mg/dL 8.6-10.6 eGFR (test code = 77365-1) 107.6 mL/min/1.73m2 CKD-EPI eGFR (20 21). Assuming creatinine has been stable day-to-day for at least three months, the eGFR indicates Category G1 (>= 90 mL/min/1.73 m2) [facility] GLUCOSE (AUTOMATED)2023-12-03 16:52:56* Test Item Value Reference Range Interpretation Comme [facility] POCT GLU (test code = 6333455647) 98 mg/dL 70-110 Lab Interpretation (test cod e = 79281-4) Normal [facility] GLUCOSE (AUTOMATED)2023-12-03 13:01:11* Test Item Value Reference Range Interpretation Comme [facility] POCT GLU (test code = 6366620242) 102 mg/dL 70-110 Lab Interpretation (test cod e = 49193-3) Normal [facility] Metabolic Panel (NA, K, CL, CO2, GLUCOSE, BUN, CREATININE, CA)2023-12-03 10:22:08* Test Item Value Reference Range Interpretation Comme nts NA (test code = 0284560466) 138 mmol/L 135-145 K (test code = 0173233437) 3.2 mmol/L 3.5-5.0 L CL (test code = 1064216927) 105 mmol/L 98-108 CO2 TOTAL (test code = 3360861088) 26 mmol/L 23-31 AGAP (test code = 7376514484) 7 2-16 BUN (test code = 4777762854) 11 mg/dL 7-23 GLUCOSE (test code = 3390759388) 96 mg/dL 70-110 CREATININE (test code = 2160-0) 0.61 mg/dL 0.50-1.04 CALCIUM (test code = 1807186886) 8.6 mg/dL 8.6-10.6 eGFR (test code = 17060-0) 108.4 mL/min/1.73m2 CKD-EPI eGFR (2020). Assuming creatinine has been stable day-to-day for at least three months, the eGFR indicates Category G1 (>= 90 mL/min/1.73 m2) Lab Interpretation (test code = 84129-1) [facility]normal [facility] 10:22:08* Test Item Value Reference Range Interpretation Comme nts MAGNESIUM (test code = 1204497516) 1.9 mg/dL 1.7-2.4 Lab Interpretation (test cod e = 35856-8) Normal [facility] (55[facility] (ALB,T.PRO,BILI T,BU/BC,ALT,AST,ALK PHOS)2023-12-03 10:22:08* Test Item Value Reference Range Interpretation Comme nts TOTAL BILI (test code = 1740737777) 0.5 mg/dL 0.1-1.1 BILI UNCON (test code = 6718291721) 0.2 mg/dL 0.1-1.1 BILI CONJ (test code = 5212247378) 0.0 mg/dL 0.0-0.3 T PROTEIN (test code = 6045948890) 6.7 g/dL 6.3-8.2 ALBUMIN (test code = 1466625626) 3.7 g/dL 3.5-5.0 ALK PHOS (test code = 6984603021) 135 U/L 34-122 H ALTv (test code = 1742-6) 26 U/L 5-35 AST(SGOT) (test code = 8529052866) 24 U/L 13-40 Lab Interpretation (test cod e = 30778-7) Abnormal [facility] 21 + Lactic Ezox2467-88-41 02:00:25* Test Item Value Reference Range Interpretation Comme nts PH (test code = 0337911528) 7.40 7.32-7.42 PCO2 NOEMI (test code = 7826129308) 40 41-51 L PO2 NOEMI (test code = 1153796724) 34 25-40 HCO3 NOEMI (test code = 2121319278) 24 24-28 AC VBE(BEAKER) (test code = 4157624990) -0.8 mEq/L THB NOEMI (test code = 0009194075) 9.3 g/dL 12.0-16.0 L %O2HB NOEMI (test code = 0300160275) 57.9 % 52.0-63.0 %COHB NOEMI (test code = 9543084425) 1.1 % 0.0-1.5 %METHB NOEMI (test code = 0019150886) 0.3 % 0.4-1.5 L VOL%O2 NOEMI (test code = 2325008697) 7.6 % 6.0-12.0 NA (test code = 0289839594) 139 mmol/L 135-145 K+ (test code = 8397157762) 3.5 mmol/L 3.5-5.0 AC CA IONZ (test code = 5479223826) 4.50 mg/dL 4.50-5.30 GLUCOSE (test code = 9198598630) 88 mg/dL 70-110 LACTIC ACID (test code = 7872397320) 1.63 mmol/L 0.50-2.20 QUES Lab Interpretation (test cod e = 84800-1) Abnormal [facility]MONARY OANCZKBVM8431-80-20 19:47:28HISTORY: Chest pain, rule out P.E. 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 Lab Interpretation (test code = 82310-0) Normal [facility] HospitalN-Terminal Mnj-Lsf4763-46-15 19:37:29* Test Item Value Reference Range Interpretation Comme nts NT-proBNP (test code = 89877-7) 3420 pg/mL <=125 H LYNDSAY (test code = LYNDSAY) Positive: Heart Failure Likely Lab Interpretation (test code = 80756-2) Abnormal [facility] HospitalCb with Oclo4144-14-43 19:28:47* Test Item Value Reference Range Interpretation [...] g/dL 31.6-35.1 L RDW-SD (test code = 27957-1) 68.9 fL 39.0-49.9 H RDW-CV (test code = 788-0) 22.6 % 12.0-15.5 H PLT (test code = 777-3) 379 166-358 H MPV (test code = 96312-9) 9.1 fL 9.5-12.9 L NRBC/100 WBC (test code = 1727396857) 0.0 0.0-10.0 NRBC x10^3 (test code = 4213620552) See_Comment [Automated messa ge] The system which generated this result transmitted reference range: 10*3/?L. The reference range was not used to interpret this result as normal/abnormal. GRAN MAT (NEUT) % (test code = 770-8) 73.5 % IMM GRAN % (test code = 0578497011) 1.70 % LYMPH % (test code = 736-9) 14.9 % MONO % (test code = 5905-5) 8.3 % EOS % (test code = 713-8) 1.2 % BASO % (test code = 706-2) 0.4 % GRAN MAT x10^3(ANC) (test code = 7861003971) 8.05 10*3/uL 1.88-7.09 H IMM GRAN x10^3 (test code = 5628874773) 0.19 10*3/uL 0.00-0.06 H LYMPH x10^3 (test code = 731-0) 1.63 10*3/uL 1.32-3.29 MONO x10^3 (test code = 742-7) 0.91 10*3/uL 0.33-0.92 EOS x10^3 (test code = 711-2) 0.13 10*3/uL 0.03-0.39 BASO x10^3 (test code = 704-7) 0.04 10*3/uL 0.01-0.07 Lab Interpretation (test code = 72904-1) Abnormal [facility] HospitalXR CHEST 1 [id number] 19:28:17HISTORY: Dyspnea. TECHNIQUE: Portable AP view of the chest is obtained. Comparison made with11/21/2023 study. FINDINGS: No acute pneumonia. No pneumothorax or pleural effusion orpulmonary congestion detected. Mild cardiomegaly noted. Multilevel lowercervical ACDF surgical changes partially visualized. Mild degenerativechanges noted in the right glenohumeral joint. CONCLUSIONS: [facility]omegaly.[facility] (78280) 2023-12-02 19:27:30* Test Item Value Reference Range Interpretation Comme nts NA (test code = 5908570130) 138 mmol/L 135-145 K (test code = 8587714704) 3.8 mmol/L 3.5-5.0 CL (test code = 6722421245) 106 mmol/L 98-108 CO2 TOTAL (test code = 4456388418) 22 mmol/L 23-31 L AGAP (test code = 5491604299) 10 2-16 BUN (test code = 9946534621) 11 mg/dL 7-23 GLUCOSE (test code = 9098297384) 103 mg/dL 70-110 CREATININE (test code = 2160-0) 0.56 mg/dL 0.50-1.04 TOTAL BILI (test code = 8542135765) 0.8 mg/dL 0.1-1.1 CALCIUM (test code = 7473983046) 8.9 mg/dL 8.6-10.6 T PROTEIN (test code = 4547541853) 7.3 g/dL 6.3-8.2 ALBUMIN (test code = 7105562164) 3.9 g/dL 3.5-5.0 ALK PHOS (test code = 0872225151) 147 U/L 34-122 H ALTv (test code = 1742-6) 34 U/L 5-35 AST(SGOT) (test code = 2302908132) 30 U/L 13-40 eGFR (test code = 49267-5) 110.7 mL/min/1.73m2 CKD-EPI eGFR (2020). Assuming creatinine has been stable day-to-day for at least three months, the eGFR indicates Category G1 (>= 90 mL/min/1.73 m2) Lab Interpretation (test code = 37498-4) Abnormal [facility] HospitalN-[facility]inal Osv-Wtj0080-80-11 17:53:15* Test Item Value Reference Range Interpretation Comme [facility] NT-proBNP (test code = 86572-0) 1070 pg/mL <=125 H LYNDSAY (test code = LYNDSAY) Positive: Heart Failure Likely Lab Interpretation (test code = 92101-4) Abnormal [facility]2023-11-28 16:41:29* Test Item Value Reference Range Interpretation Comme nts POCT GLU (test code = 7533685283) 129 mg/dL 70-110 H Lab Interpretation (test cod e = 76539-0) Abnormal [facility] HospitalMagnesium2024-05-11 10:02:12* Test Item Value Reference Range Interpretation Comme nts MAGNESIUM (test code = 0305323321) 2.1 mg/dL 1.7-2.4 Lab Interpretation (test cod e = 81253-0) Normal [facility] HospitalPhosphorus2024-05-11 10:02:12* Test Item Value Reference Range Interpretation Comme nts PHOSPHORUS (test code = 8476698466) 5.9 mg/dL 2.5-5.0 H Lab Interpretation (test cod e = 34173-3) Abnormal [facility] HospitalComp. Metabolic Panel (29670)2023-11-28 10:02:12* Test Item Value Reference Range Interpretation Comme nts NA (test code = 5079280740) 140 mmol/L 135-145 K (test code = 9461130713) 3.7 mmol/L 3.5-5.0 CL (test code = 7038397580) 98 mmol/L 98-108 CO2 TOTAL (test code = 4427329944) 33 mmol/L 23-31 H AGAP (test code = 8851228840) 9 2-16 BUN (test code = 2789184977) 24 mg/dL 7-23 H GLUCOSE (test code = 4575373857) 107 mg/dL 70-110 CREATININE (test code = 2160-0) 0.61 mg/dL 0.50-1.04 TOTAL BILI (test code = 6921256096) 0.6 mg/dL 0.1-1.1 CALCIUM (test code = 5326318588) 8.0 mg/dL 8.6-10.6 L T PROTEIN (test code = 4249441503) 6.0 g/dL 6.3-8.2 L ALBUMIN (test code = 6489502598) 3.4 g/dL 3.5-5.0 L ALK PHOS (test code = 5322755111) 173 U/L 34-122 H ALTv (test code = 1742-6) 61 U/L 5-35 H AST(SGOT) (test code = 5857246418) 29 U/L 13-40 eGFR (test code = 47731-2) 108.4 mL/min/1.73m2 CKD-EPI eGFR (2020). Assuming creatinine has been stable day-to-day for at least three months, the eGFR indicates Category G1 (>= 90 mL/min/1.73 m2) Lab Interpretation (test code = 96057-2) Abnormal [facility] with Beve5310-34-33 09:37:29* Test Item Value Reference Range Interpretation [...] g/dL 31.6-35.1 L RDW-SD (test code = 20132-9) 65.6 fL 39.0-49.9 H RDW-CV (test code = 788-0) 22.0 % 12.0-15.5 H PLT (test code = 777-3) 292 166-358 MPV (test code = 16939-5) 9.1 fL 9.5-12.9 L NRBC/100 WBC (test code = 8893572912) 0.0 0.0-10.0 NRBC x10^3 (test code = 8618351353) See_Comment [Automated messa ge] The system which generated this result transmitted reference range: 10*3/?L. The reference range was not used to interpret this result as normal/abnormal. GRAN MAT (NEUT) % (test code = 770-8) 62.0 % IMM GRAN % (test code = 4484832668) 1.20 % LYMPH % (test code = 736-9) 28.5 % MONO % (test code = 5905-5) 7.3 % EOS % (test code = 713-8) 0.9 % BASO % (test code = 706-2) 0.1 % GRAN MAT x10^3(ANC) (test code = 6248441555) 4.98 10*3/uL 1.88-7.09 IMM GRAN x10^3 (test code = 5780765847) 0.10 10*3/uL 0.00-0.06 H LYMPH x10^3 (test code = 731-0) 2.29 10*3/uL 1.32-3.29 MONO x10^3 (test code = 742-7) 0.59 10*3/uL 0.33-0.92 EOS x10^3 (test code = 711-2) 0.07 10*3/uL 0.03-0.39 BASO x10^3 (test code = 704-7) 0.01-0.07 Lab Interpretation (test code = 51957-0) Abnormal [facility] GLUCOSE (AUTOMATED)2023-11-28 01:32:15* Test Item Value Reference Range Interpretation Comme nts POCT GLU (test code = 3493952209) 154 mg/dL 70-110 H Lab Interpretation (test cod e = 00761-4) Abnormal [facility] GLUCOSE (AUTOMATED)2023-11-27 21:45:44* Test Item Value Reference Range Interpretation Comme nts POCT GLU (test code = 6582348600) 183 mg/dL 70-110 H Lab Interpretation (test cod e = 15356-4) Abnormal [facility] GLUCOSE (AUTOMATED)2023-11-27 16:31:46* Test Item Value Reference Range Interpretation Comme nts POCT GLU (test code = 4272416915) 96 mg/dL 70-110 Lab Interpretation (test cod e = 43899-4) Normal [facility] GLUCOSE (AUTOMATED)2023-11-27 12:42:32* Test Item Value Reference Range Interpretation Comme nts POCT GLU (test code = 1912114183) 88 mg/dL 70-110 Lab Interpretation (test cod e = 63225-9) Normal [facility] HospitalLactic Acid Whole Kreze7876-44-43 06:44:07* Test Item Value Reference Range Interpretation Comme nts LACTIC ACID (test code = 2541845601) 1.48 mmol/L 0.50-2.20 Lab Interpretation (test cod e = 02628-3) Normal [facility] GLUCOSE (AUTOMATED)2023-11-27 02:37:00* Test Item Value Reference Range Interpretation Comme nts POCT GLU (test code = 5423571852) 167 mg/dL 70-110 H Lab Interpretation (test cod e = 85332-7) Abnormal [facility] HospitalValproic Acid, Rosf6322-94-83 00:22:04* Test Item Value Reference Range Interpretation Comme nts Valproic Acid, Free (test code = 8217763824) 23.8 ug/mL 4.0-15.0 H LYNDSAY (test code = LYNDSAY) Toxic Range: ? Greater than 15 ug/mL Test developed and characteristics determined by [facility] Laboratory Services. Lab Interpretation (test code = 50741-7) Abnormal [facility] HospitalFolate2024-05-09 22:17:52* Test Item Value Reference Range Interpretation Comme nts FOLATE SER (test code = 7517407812) 10.9 ng/mL 3.0-20.0 Lab Interpretation (test cod e = 07855-4) Normal [facility] HospitalVitamin B12, Hpach4158-50-68 22:17:52* Test Item Value Reference Range Interpretation Comme nts VIT B12 (test code = 6384390172) 485 pg/mL 240-930 LYNDSAY (test code = LYNDSAY) Biotin has been reported to cause a positive bias, interpret results relative to patient's use of biotin. Lab Interpretation (test code = 44518-5) Normal [facility] HospitalCT [facility] WO PFIQYCDU1343-30-35 22:17:11EXAM: CT HEAD WO CONTRAST HISTORY: 53 [...] calvarium and central skull base areunremarkable. [facility] HospitalMagnesium2024-05-09 22:11:53* Test Item Value Reference Range Interpretation Comme nts MAGNESIUM (test code = 6475377101) 2.1 mg/dL 1.7-2.4 Lab Interpretation (test cod e = 94216-4) Normal [facility]. Metabolic Panel (34196)2023-11-26 22:11:53* Test Item Value Reference Range Interpretation Comme nts NA (test code = 9609420482) 132 mmol/L 135-145 L K (test code = 1420459789) 4.3 mmol/L 3.5-5.0 CL (test code = 1668977364) 94 mmol/L 98-108 L CO2 TOTAL (test code = 8718244072) 34 mmol/L 23-31 H AGAP (test code = 7754034844) 4 2-16 BUN (test code = 7961750436) 24 mg/dL 7-23 H GLUCOSE (test code = 7848573585) 178 mg/dL 70-110 H CREATININE (test code = 2160-0) 0.62 mg/dL 0.50-1.04 TOTAL BILI (test code = 2966407013) 0.6 mg/dL 0.1-1.1 CALCIUM (test code = 9285339793) 8.0 mg/dL 8.6-10.6 L T PROTEIN (test code = 7856107418) 6.1 g/dL 6.3-8.2 L ALBUMIN (test code = 7919127184) 3.5 g/dL 3.5-5.0 ALK PHOS (test code = 0113125306) 212 U/L 34-122 H ALTv (test code = 1742-6) 80 U/L 5-35 H AST(SGOT) (test code = 7703798117) 51 U/L 13-40 H eGFR (test code = 17510-6) 108.0 mL/min/1.73m2 CKD-EPI eGFR (2020). Assuming creatinine has been stable day-to-day for at least three months, the eGFR indicates Category G1 (>= 90 mL/min/1.73 m2) Lab Interpretation (test code = 06128-4) Abnormal [facility] GLUCOSE (AUTOMATED)2023-11-26 21:19:06* Test Item Value Reference Range Interpretation Comme [facility] POCT GLU (test code = 5833021981) 224 mg/dL 70-110 H Lab Interpretation (test cod e = 44025-1) Abnormal [facility] HospitalKeppra (Levetiracetam)2023-11-26 19:45:17* Test Item Value Reference Range Interpretation Comme nts KEPPRA (test code = 7518781667) 12-46 L LYNDSAY (test code = LYNDSAY) Therapeutic range: 12-46 ?g/mL ? ?Toxic: Not well established.Test developed and characteristics determined by [facility] Laboratory Services. Lab Interpretation (test code = 79178-5) Abnormal [facility] HospitalLapaic Acid Whole Xbwyi8268-94-46 18:11:07* Test Item Value Reference Range Interpretation Comme [facility] LACTIC ACID (test code = 2699163125) 6.19 mmol/L 0.50-2.20 H Lab Interpretation (test cod e = 31556-9) Abnormal [facility] GLUCOSE (AUTOMATED)2023-11-26 17:06:14* Test Item Value Reference Range Interpretation Comme [facility] POCT GLU (test code = 8430276686) 293 mg/dL 70-110 H Lab Interpretation (test cod e = 07526-4) Abnormal [facility]. Metabolic Panel (04030)2023-11-26 14:21:31* Test Item Value Reference Range Interpretation Comme nts NA (test code = 9513336155) 140 mmol/L 135-145 K (test code = 8349311205) 3.9 mmol/L 3.5-5.0 CL (test code = 6871394773) 93 mmol/L 98-108 L CO2 TOTAL (test code = 4804989817) 38 mmol/L 23-31 H AGAP (test code = 6892032122) 9 2-16 BUN (test code = 8770202189) 25 mg/dL 7-23 H GLUCOSE (test code = 9770715148) 83 mg/dL 70-110 CREATININE (test code = 2160-0) 0.71 mg/dL 0.50-1.04 TOTAL BILI (test code = 2497578690) 0.7 mg/dL 0.1-1.1 CALCIUM (test code = 2902695466) 8.7 mg/dL 8.6-10.6 T PROTEIN (test code = 5243876595) 6.6 g/dL 6.3-8.2 ALBUMIN (test code = 8308107769) 3.6 g/dL 3.5-5.0 ALK PHOS (test code = 1011359138) 220 U/L 34-122 H ALTv (test code = 1742-6) 95 U/L 5-35 H AST(SGOT) (test code = 8378944532) 47 U/L 13-40 H eGFR (test code = 72450-5) 103.1 mL/min/1.73m2 CKD-EPI eGFR (2020). Assuming creatinine has been stable day-to-day for at least three months, the eGFR indicates Category G1 (>= 90 mL/min/1.73 m2) Lab Interpretation (test code = 17172-8) Abnormal [facility]esium2024-05-09 14:03:47* Test Item Value Reference Range Interpretation Comme nts MAGNESIUM (test code = 8237960632) 2.3 mg/dL 1.7-2.4 Lab Interpretation (test cod e = 27947-7) Normal [facility] with Ynrj1333-60-74 13:57:47* Test Item Value Reference Range Interpretation [...] g/dL 31.6-35.1 L RDW-SD (test code = 05125-4) 67.3 fL 39.0-49.9 H RDW-CV (test code = 788-0) 22.5 % 12.0-15.5 H PLT (test code = 777-3) 285 166-358 MPV (test code = 69290-3) 9.2 fL 9.5-12.9 L NRBC/100 WBC (test code = 0168159582) 0.3 0.0-10.0 NRBC x10^3 (test code = 8886409138) 0.03 See_Comment [Automated messa ge] The system which generated this result transmitted reference range: 10*3/?L. The reference range was not used to interpret this result as normal/abnormal. GRAN MAT (NEUT) % (test code = 770-8) 70.5 % IMM GRAN % (test code = 3249013403) 0.80 % LYMPH % (test code = 736-9) 21.7 % MONO % (test code = 5905-5) 6.4 % EOS % (test code = 713-8) 0.5 % BASO % (test code = 706-2) 0.1 % GRAN MAT x10^3(ANC) (test code = 7364094007) 7.54 10*3/uL 1.88-7.09 H IMM GRAN x10^3 (test code = 5075214627) 0.09 10*3/uL 0.00-0.06 H LYMPH x10^3 (test code = 731-0) 2.32 10*3/uL 1.32-3.29 MONO x10^3 (test code = 742-7) 0.69 10*3/uL 0.33-0.92 EOS x10^3 (test code = 711-2) 0.05 10*3/uL 0.03-0.39 BASO x10^3 (test code = 704-7) 0.01-0.07 Lab Interpretation (test code = 73411-7) Abnormal [facility] Acid Whole Uwyct7503-86-54 10:06:23* Test Item Value Reference Range Interpretation Comme [facility] LACTIC ACID (test code = 8683459055) 2.41 mmol/L 0.50-2.20 H Lab Interpretation (test cod e = 22873-6) Abnormal [facility] HospitalPOTN GLUCOSE (AUTOMATED)2023-11-26 02:14:06* Test Item Value Reference Range Interpretation Comme [facility] POCT GLU (test code = 0112942487) 288 mg/dL 70-110 H Lab Interpretation (test cod e = 13931-0) Abnormal [facility] HospitalLapaic Acid Whole Ayzlm8516-49-53 00:56:52* Test Item Value Reference Range Interpretation Comme [facility] LACTIC ACID (test code = 4239689304) 2.93 mmol/L 0.50-2.20 H Lab Interpretation (test cod e = 46778-6) Abnormal [facility] HospitalElectroencephalogram (EEG) - Duration of test: Continuous EEG Monitoring (LTM); Release to patient:Huczslges8414-18-32 00:00:00 * Test Item Value Reference Range Interpretation Comme nts LYNDSAY (test code = LYNDSAY) LONG-TERM EEG MONITORING #1: 11/26/2023, 15:40 - 16: 31 Name: Heather Overton YueN: [id number]'s Age:53 year oldSex: female History from chart review: This is a 53 year old female with a PMH significant for HFrEF (~35% 05/2023), HTN, Smoker, COPD (on intermittent home O2), chronic low back pain, seizure disorder, C3-C4 ACDF and L3-L4 laminectomies (06/01/23) c/b chronic low back pain 2/2 lumbar spinal stenosis, and depression presenting from [facility] ED due to SOB. Level of [...] segment. Laura Ramirez MD, PhD, FAESData: 11/26/2023 PENITENTIARY EEG MONITORING SEGMENT #2: 11/26/23, 16:31:09-19:29:41 In [...] on 11/27/23 Lab Interpretation (test code = 50878-3) Abnormal [facility]. Metabolic Panel (34971)2023-11-25 21:24:39* Test Item Value Reference Range Interpretation Comme nts NA (test code = 9552511082) 134 mmol/L 135-145 L K (test code = 3450308752) 4.3 mmol/L 3.5-5.0 CL (test code = 5059798847) 89 mmol/L 98-108 L CO2 TOTAL (test code = 0058990255) 37 mmol/L 23-31 H AGAP (test code = 8840295086) 8 2-16 BUN (test code = 1142578120) 24 mg/dL 7-23 H GLUCOSE (test code = 8943034595) 177 mg/dL 70-110 H CREATININE (test code = 2160-0) 0.69 mg/dL 0.50-1.04 TOTAL BILI (test code = 2875145472) 0.9 mg/dL 0.1-1.1 CALCIUM (test code = 5310677784) 8.6 mg/dL 8.6-10.6 T PROTEIN (test code = 6692048931) 7.3 g/dL 6.3-8.2 ALBUMIN (test code = 3946412616) 4.1 g/dL 3.5-5.0 ALK PHOS (test code = 5897231746) 263 U/L 34-122 H ALTv (test code = 1742-6) 116 U/L 5-35 H AST(SGOT) (test code = 5426447803) 36 U/L 13-40 eGFR (test code = 83744-7) 105.2 mL/min/1.73m2 CKD-EPI eGFR (2020). Assuming creatinine has been stable day-to-day for at least three months, the eGFR indicates Category G1 (>= 90 mL/min/1.73 m2) Lab Interpretation (test code = 35414-1) [facility]* Test Item Value Reference Range Interpretation Comme nts MAGNESIUM (test code = 4843552501) 2.1 mg/dL 1.7-2.4 Lab Interpretation (test cod e = 15756-0) [facility] Dfwpw3461-84-42 21:10:26* Test Item Value Reference Range Interpretation Comme nts LACTIC ACID (test code = 6063383631) 4.07 mmol/L 0.50-2.20 H Lab Interpretation (test cod e = 12565-8) [facility]23-[facility]-25 21:01:04* Test Item Value Reference Range Interpretation Comme nts POCT GLU (test code = 7245100825) 173 mg/dL 70-110 H Lab Interpretation (test cod e = 01146-0) Abnormal [facility] GLUCOSE (AUTOMATED)2023-11-25 16:59:00* Test Item Value Reference Range Interpretation Comme nts POCT GLU (test code = 8618251511) 220 mg/dL 70-110 H Lab Interpretation (test cod e = 54718-0) Abnormal [facility] GLUCOSE (AUTOMATED)2023-11-25 13:06:20* Test Item Value Reference Range Interpretation Comme nts POCT GLU (test code = 9260446548) 92 mg/dL 70-110 Lab Interpretation (test cod e = 53156-6) Normal [facility] Acid Whole Rexgg2962-16-68 09:28:51* Test Item Value Reference Range Interpretation Comme nts LACTIC ACID (test code = 3042266547) 1.66 mmol/L 0.50-2.20 Lab Interpretation (test cod e = 45741-4) Normal [facility] Acid Whole Knpzq6085-47-74 04:58:57* Test Item Value Reference Range Interpretation Comme nts LACTIC ACID (test code = 9417365581) 2.00 mmol/L 0.50-2.20 Lab Interpretation (test cod e = 93018-9) Normal [facility] GLUCOSE (AUTOMATED)2023-11-25 03:05:13* Test Item Value Reference Range Interpretation Comme nts POCT GLU (test code = 0446121300) 189 mg/dL 70-110 H Lab Interpretation (test cod e = 50776-9) Abnormal [facility] ABDOMEN PELVIS W [id number] 00:18:09CT ABDOMEN PELVIS W CONTRAST 11/24/2023 5:07 [...] and upper thigh skinthickening and subcutaneous edema.[facility] Fmgrk6424-52-70 21:31:49* Test Item Value Reference Range Interpretation Comme [facility] LACTIC ACID (test code = 1758093084) 4.54 mmol/L 0.50-2.20 H Lab Interpretation (test cod e = 38927-4) Abnormal [facility] GLUCOSE (AUTOMATED)2023-11-24 21:31:39* Test Item Value Reference Range Interpretation Comme nts POCT GLU (test code = 2077726796) 198 mg/dL 70-110 H Lab Interpretation (test cod e = 75918-0) Abnormal [facility] GLUCOSE (AUTOMATED)2023-11-24 17:53:57* Test Item Value Reference Range Interpretation Comme nts POCT GLU (test code = 0436703816) 226 mg/dL 70-110 H Lab Interpretation (test cod e = 20664-0) Abnormal [facility] GLUCOSE (AUTOMATED)2023-11-24 17:53:57* Test Item Value Reference Range Interpretation Comme nts POCT GLU (test code = 6148224395) 226 mg/dL 70-110 H Lab Interpretation (test cod e = 25993-5) [facility] 17:53:57* Test Item Value Reference Range Interpretation Comme nts POCT GLU (test code = 8170242762) 226 mg/dL 70-110 H Lab Interpretation (test cod e = 93112-8) [facility] Ynqms0333-03-50 15:48:27* Test Item Value Reference Range Interpretation Comme nts LACTIC ACID (test code = 2819807153) 4.43 mmol/L 0.50-2.20 H Lab Interpretation (test cod e = 83417-2) [facility] Podug5227-18-49 15:48:27* Test Item Value Reference Range Interpretation Comme nts LACTIC ACID (test code = 6995171549) 4.43 mmol/L 0.50-2.20 H Lab Interpretation (test cod e = 11265-8) [facility]normal [facility] Mgihl4215-90-68 15:48:27* Test Item Value Reference Range Interpretation Comme nts LACTIC ACID (test code = 8189286022) 4.43 mmol/L 0.50-2.20 H Lab Interpretation (test cod e = 59704-8) [facility]normal [facility] Zpgvqkfjhwhjzhu7432-72-44 14:28:29? ?RHC/Coronary Angiography Date of Service: 11/23/2023 ?3:18 PM Indication/Diagnosis: heart failure Consent source: self Consent type: indications/complications discussed with patient/legal guardian; written consent obtained Time out completed: yes Aseptic technique: Chlorprep Local Anesthesia: 1% lidocaine without epinephrine Sedation: fentanyl 50 mcg, Versed 2 mg Access site: right radial artery, RI [place] 4.0 5fr8 Fr IJ sheathSwan Rosalba ? [...] was present for the entire procedure. [facility] Post-Procedure Sedation AddendumImmediately prior to start of [...] sided failure. Nataliia Ivy professor.[facility]2023-11-24 12:34:31* Test Item Value Reference Range Interpretation Comme nts POCT GLU (test code = 4179915926) 114 mg/dL 70-110 H Lab Interpretation (test cod e = 38733-6) Abnormal [facility] GLUCOSE (AUTOMATED)2023-11-24 12:34:31* Test Item Value Reference Range Interpretation Comme nts POCT GLU (test code = 5540628792) 114 mg/dL 70-110 H Lab Interpretation (test cod e = 21607-6) Abnormal [facility] GLUCOSE (AUTOMATED)2023-11-24 12:34:31* Test Item Value Reference Range Interpretation Comme nts POCT GLU (test code = 2250583292) 114 mg/dL 70-110 H Lab Interpretation (test cod e = 71207-8) [facility]normal [facility] 11:10:57* Test Item Value Reference Range Interpretation Comme nts MAGNESIUM (test code = 2173097856) 2.2 mg/dL 1.7-2.4 Lab Interpretation (test cod e = 48045-1) Normal [facility]. Metabolic Panel (61135)2023-11-24 11:10:57* Test Item Value Reference Range Interpretation Comme nts NA (test code = 6868071515) 141 mmol/L 135-145 K (test code = 7994350088) 4.1 mmol/L 3.5-5.0 CL (test code = 9720476729) 97 mmol/L 98-108 L CO2 TOTAL (test code = 9371140970) 36 mmol/L 23-31 H AGAP (test code = 1661489925) 8 2-16 BUN (test code = 7338046814) 20 mg/dL 7-23 GLUCOSE (test code = 0489062039) 125 mg/dL 70-110 H CREATININE (test code = 2160-0) 0.66 mg/dL 0.50-1.04 TOTAL BILI (test code = 6191848280) 0.7 mg/dL 0.1-1.1 CALCIUM (test code = 1543431277) 8.4 mg/dL 8.6-10.6 L T PROTEIN (test code = 6279666180) 6.5 g/dL 6.3-8.2 ALBUMIN (test code = 9992520240) 3.7 g/dL 3.5-5.0 ALK PHOS (test code = 2746098175) 266 U/L 34-122 H ALTv (test code = 1742-6) 149 U/L 5-35 H AST(SGOT) (test code = 7743985687) 35 U/L 13-40 eGFR (test code = 16659-1) 106.4 mL/min/1.73m2 CKD-EPI eGFR (2020). Assuming creatinine has been stable day-to-day for at least three months, the eGFR indicates Category G1 (>= 90 mL/min/1.73 m2) Lab Interpretation (test code = 09757-2) [facility] 11:10:57* Test Item Value Reference Range Interpretation Comme nts MAGNESIUM (test code = 9086592739) 2.2 mg/dL 1.7-2.4 Lab Interpretation (test cod e = 27266-9) Normal [facility] (17535)2023-11-24 11:10:57* Test Item Value Reference Range Interpretation Comme nts NA (test code = 5546229420) 141 mmol/L 135-145 K (test code = 2826966825) 4.1 mmol/L 3.5-5.0 CL (test code = 9885026049) 97 mmol/L 98-108 L CO2 TOTAL (test code = 2781340497) 36 mmol/L 23-31 H AGAP (test code = 8395255636) 8 2-16 BUN (test code = 7466824883) 20 mg/dL 7-23 GLUCOSE (test code = 2969527525) 125 mg/dL 70-110 H CREATININE (test code = 2160-0) 0.66 mg/dL 0.50-1.04 TOTAL BILI (test code = 3317939581) 0.7 mg/dL 0.1-1.1 CALCIUM (test code = 6521277416) 8.4 mg/dL 8.6-10.6 L T PROTEIN (test code = 5994681739) 6.5 g/dL 6.3-8.2 ALBUMIN (test code = 3768657381) 3.7 g/dL 3.5-5.0 ALK PHOS (test code = 0575170474) 266 U/L 34-122 H ALTv (test code = 1742-6) 149 U/L 5-35 H AST(SGOT) (test code = 3030563342) 35 U/L 13-40 eGFR (test code = 73522-6) 106.4 mL/min/1.73m2 CKD-EPI eGFR (2020). Assuming creatinine has been stable day-to-day for at least three months, the eGFR indicates Category G1 (>= 90 mL/min/1.73 m2) Lab Interpretation (test code = 11644-9) [facility]normal [facility] 11:10:57* Test Item Value Reference Range Interpretation Comme nts MAGNESIUM (test code = 5411811069) 2.2 mg/dL 1.7-2.4 Lab Interpretation (test cod e = 09880-9) Normal [facility] (17432)2023-11-24 11:10:57* Test Item Value Reference Range Interpretation Comme nts NA (test code = 4435699204) 141 mmol/L 135-145 K (test code = 5890498530) 4.1 mmol/L 3.5-5.0 CL (test code = 9003033714) 97 mmol/L 98-108 L CO2 TOTAL (test code = 9487696514) 36 mmol/L 23-31 H AGAP (test code = 2352339176) 8 2-16 BUN (test code = 4056843453) 20 mg/dL 7-23 GLUCOSE (test code = 6256038591) 125 mg/dL 70-110 H CREATININE (test code = 2160-0) 0.66 mg/dL 0.50-1.04 TOTAL BILI (test code = 5134953647) 0.7 mg/dL 0.1-1.1 CALCIUM (test code = 3269607326) 8.4 mg/dL 8.6-10.6 L T PROTEIN (test code = 7967873307) 6.5 g/dL 6.3-8.2 ALBUMIN (test code = 8463721502) 3.7 g/dL 3.5-5.0 ALK PHOS (test code = 0280811792) 266 U/L 34-122 H ALTv (test code = 1742-6) 149 U/L 5-35 H AST(SGOT) (test code = 2270208126) 35 U/L 13-40 eGFR (test code = 59645-2) 106.4 mL/min/1.73m2 CKD-EPI eGFR (2020). Assuming creatinine has been stable day-to-day for at least three months, the eGFR indicates Category G1 (>= 90 mL/min/1.73 m2) Lab Interpretation (test code = 45330-1) [facility] Ciyqub5652-74-36 11:07:59* Test Item Value Reference Range Interpretation Comme nts LACTIC ACID (test code = 4802410141) 3.41 mmol/L 0.50-2.20 H Lab Interpretation (test cod e = 69612-2) [facility]normal [facility] Hour Iomruo0205-49-32 11:07:59* Test Item Value Reference Range Interpretation Comme nts LACTIC ACID (test code = 2175410281) 3.41 mmol/L 0.50-2.20 H Lab Interpretation (test cod e = 07980-3) [facility]normal [facility] Hour Hajptt8378-77-81 11:07:59* Test Item Value Reference Range Interpretation Comme nts LACTIC ACID (test code = 6853214705) 3.41 mmol/L 0.50-2.20 H Lab Interpretation (test cod e = 53634-9) Abnormal [facility] with Hjsz0189-81-00 10:28:34* Test Item Value Reference Range Interpretation [...] g/dL 31.6-35.1 L RDW-SD (test code = 83627-6) 67.5 fL 39.0-49.9 H RDW-CV (test code = 788-0) 22.5 % 12.0-15.5 H PLT (test code = 777-3) 245 166-358 MPV (test code = 13906-8) 9.5 fL 9.5-12.9 NRBC/100 WBC (test code = 8690715688) 1.2 0.0-10.0 NRBC x10^3 (test code = 2230044446) 0.11 See_Comment [Automated messa ge] The system which generated this result transmitted reference range: 10*3/?L. The reference range was not used to interpret this result as normal/abnormal. GRAN MAT (NEUT) % (test code = 770-8) 84.8 % IMM GRAN % (test code = 4007723667) 0.80 % LYMPH % (test code = 736-9) 7.3 % MONO % (test code = 5905-5) 7.0 % EOS % (test code = 713-8) 0.0 % BASO % (test code = 706-2) 0.1 % GRAN MAT x10^3(ANC) (test code = 7204980508) 8.03 10*3/uL 1.88-7.09 H IMM GRAN x10^3 (test code = 4644089240) 0.08 10*3/uL 0.00-0.06 H LYMPH x10^3 (test code = 731-0) 0.69 10*3/uL 1.32-3.29 L MONO x10^3 (test code = 742-7) 0.66 10*3/uL 0.33-0.92 EOS x10^3 (test code = 711-2) 0.03-0.39 L BASO x10^3 (test code = 704-7) 0.01-0.07 Lab Interpretation (test code = 05205-3) Abnormal [facility] with Ollm8401-83-14 10:28:34* Test Item Value Reference Range Interpretation [...] g/dL 31.6-35.1 L RDW-SD (test code = 37811-4) 67.5 fL 39.0-49.9 H RDW-CV (test code = 788-0) 22.5 % 12.0-15.5 H PLT (test code = 777-3) 245 166-358 MPV (test code = 52184-6) 9.5 fL 9.5-12.9 NRBC/100 WBC (test code = 9932104841) 1.2 0.0-10.0 NRBC x10^3 (test code = 0296524131) 0.11 See_Comment [Automated messa ge] The system which generated this result transmitted reference range: 10*3/?L. The reference range was not used to interpret this result as normal/abnormal. GRAN MAT (NEUT) % (test code = 770-8) 84.8 % IMM GRAN % (test code = 9139523135) 0.80 % LYMPH % (test code = 736-9) 7.3 % MONO % (test code = 5905-5) 7.0 % EOS % (test code = 713-8) 0.0 % BASO % (test code = 706-2) 0.1 % GRAN MAT x10^3(ANC) (test code = 7794904073) 8.03 10*3/uL 1.88-7.09 H IMM GRAN x10^3 (test code = 1110728207) 0.08 10*3/uL 0.00-0.06 H LYMPH x10^3 (test code = 731-0) 0.69 10*3/uL 1.32-3.29 L MONO x10^3 (test code = 742-7) 0.66 10*3/uL 0.33-0.92 EOS x10^3 (test code = 711-2) 0.03-0.39 L BASO x10^3 (test code = 704-7) 0.01-0.07 Lab Interpretation (test code = 79956-7) Abnormal [facility] with Kccw1996-48-27 10:28:34* Test Item Value Reference Range Interpretation [...] g/dL 31.6-35.1 L RDW-SD (test code = 87240-9) 67.5 fL 39.0-49.9 H RDW-CV (test code = 788-0) 22.5 % 12.0-15.5 H PLT (test code = 777-3) 245 166-358 MPV (test code = 90120-3) 9.5 fL 9.5-12.9 NRBC/100 WBC (test code = 1467781822) 1.2 0.0-10.0 NRBC x10^3 (test code = 2039021816) 0.11 See_Comment [Automated messa ge] The system which generated this result transmitted reference range: 10*3/?L. The reference range was not used to interpret this result as normal/abnormal. GRAN MAT (NEUT) % (test code = 770-8) 84.8 % IMM GRAN % (test code = 8207861545) 0.80 % LYMPH % (test code = 736-9) 7.3 % MONO % (test code = 5905-5) 7.0 % EOS % (test code = 713-8) 0.0 % BASO % (test code = 706-2) 0.1 % GRAN MAT x10^3(ANC) (test code = 6044740744) 8.03 10*3/uL 1.88-7.09 H IMM GRAN x10^3 (test code = 3358252177) 0.08 10*3/uL 0.00-0.06 H LYMPH x10^3 (test code = 731-0) 0.69 10*3/uL 1.32-3.29 L MONO x10^3 (test code = 742-7) 0.66 10*3/uL 0.33-0.92 EOS x10^3 (test code = 711-2) 0.03-0.39 L BASO x10^3 (test code = 704-7) 0.01-0.07 Lab Interpretation (test code = 35527-4) Abnormal [facility] (for use with Heparin Infusion)2023-11-24 06:40:52* Test Item Value Reference Range Interpretation Comme [facility] APTT Patient (test code = 3173-2) Lab Interpretation (test cod e = 31893-0) Normal [facility] (for use with Heparin Infusion)2023-11-24 06:40:52* Test Item Value Reference Range Interpretation Comme [facility] APTT Patient (test code = 3173-2) Lab Interpretation (test cod e = 19998-9) Normal [facility] (for use with Heparin Infusion)2023-11-24 06:40:52* Test Item Value Reference Range Interpretation Comme [facility] APTT Patient (test code = 3173-2) Lab Interpretation (test cod e = 32131-5) Normal [facility] GLUCOSE (AUTOMATED)2023-11-24 03:18:58* Test Item Value Reference Range Interpretation Comme [facility] POCT GLU (test code = 6167048287) 263 mg/dL 70-110 H Lab Interpretation (test cod e = 73795-0) Abnormal [facility] GLUCOSE (AUTOMATED)2023-11-24 03:18:58* Test Item Value Reference Range Interpretation Comme nts POCT GLU (test code = 8758784618) 263 mg/dL 70-110 H Lab Interpretation (test cod e = 94850-6) Abnormal [facility] GLUCOSE (AUTOMATED)2023-11-24 03:18:58* Test Item Value Reference Range Interpretation Comme nts POCT GLU (test code = 0107904850) 263 mg/dL 70-110 H Lab Interpretation (test cod e = 05693-1) Abnormal [facility] GLUCOSE (AUTOMATED)2023-11-23 21:29:57* Test Item Value Reference Range Interpretation Comme nts POCT GLU (test code = 1719151265) 137 mg/dL 70-110 H Lab Interpretation (test cod e = 69473-5) Abnormal [facility] GLUCOSE (AUTOMATED)2023-11-23 21:29:57* Test Item Value Reference Range Interpretation Comme nts POCT GLU (test code = 7002828187) 137 mg/dL 70-110 H Lab Interpretation (test cod e = 45642-2) Abnormal [facility] GLUCOSE (AUTOMATED)2023-11-23 21:29:57* Test Item Value Reference Range Interpretation Comme nts POCT GLU (test code = 8120589152) 137 mg/dL 70-110 H Lab Interpretation (test cod e = 68232-2) [facility]normal [facility] ([facility] (ALB,T.PRO,BILI T,BU/BC,ALT,AST,ALK PHOS)2023-11-23 17:45:02* Test Item Value Reference Range Interpretation Comme nts TOTAL BILI (test code = 8437952425) 0.7 mg/dL 0.1-1.1 BILI UNCON (test code = 8965689071) 0.1 mg/dL 0.1-1.1 BILI CONJ (test code = 2391158197) 0.0 mg/dL 0.0-0.3 T PROTEIN (test code = 6948412882) 6.2 g/dL 6.3-8.2 L ALBUMIN (test code = 4410452975) 3.5 g/dL 3.5-5.0 ALK PHOS (test code = 2596105170) 274 U/L 34-122 H ALTv (test code = 1742-6) 176 U/L 5-35 H AST(SGOT) (test code = 4697818826) 40 U/L 13-40 Lab Interpretation (test cod e = 92129-1) [facility] (17868[facility] (ALB,T.PRO,BILI T,BU/BC,ALT,AST,ALK PHOS)2023-11-23 17:45:02* Test Item Value Reference Range Interpretation Comme nts TOTAL BILI (test code = 8180864057) 0.7 mg/dL 0.1-1.1 BILI UNCON (test code = 4835930045) 0.1 mg/dL 0.1-1.1 BILI CONJ (test code = 7150972697) 0.0 mg/dL 0.0-0.3 T PROTEIN (test code = 4908139564) 6.2 g/dL 6.3-8.2 L ALBUMIN (test code = 7410569782) 3.5 g/dL 3.5-5.0 ALK PHOS (test code = 1889562021) 274 U/L 34-122 H ALTv (test code = 1742-6) 176 U/L 5-35 H AST(SGOT) (test code = 0833348256) 40 U/L 13-40 Lab Interpretation (test cod e = 18951-3) [facility] (69060[facility] (ALB,T.PRO,BILI T,BU/BC,ALT,AST,ALK PHOS)2023-11-23 17:45:02* Test Item Value Reference Range Interpretation Comme nts TOTAL BILI (test code = 5315291196) 0.7 mg/dL 0.1-1.1 BILI UNCON (test code = 5444651264) 0.1 mg/dL 0.1-1.1 BILI CONJ (test code = 1775633492) 0.0 mg/dL 0.0-0.3 T PROTEIN (test code = 6261060280) 6.2 g/dL 6.3-8.2 L ALBUMIN (test code = 6496544862) 3.5 g/dL 3.5-5.0 ALK PHOS (test code = 9483617732) 274 U/L 34-122 H ALTv (test code = 1742-6) 176 U/L 5-35 H AST(SGOT) (test code = 4803745739) 40 U/L 13-40 Lab Interpretation (test cod e = 67210-5) Abnormal [facility] GLUCOSE (AUTOMATED)2023-11-23 17:19:25* Test Item Value Reference Range Interpretation Comme nts POCT GLU (test code = 4579633053) 137 mg/dL 70-110 H Lab Interpretation (test cod e = 15789-6) Abnormal [facility] GLUCOSE (AUTOMATED)2023-11-23 17:19:25* Test Item Value Reference Range Interpretation Comme nts POCT GLU (test code = 6790707087) 137 mg/dL 70-110 H Lab Interpretation (test cod e = 88075-1) Abnormal [facility] GLUCOSE (AUTOMATED)2023-11-23 17:19:25* Test Item Value Reference Range Interpretation Comme nts POCT GLU (test code = 6391212159) 137 mg/dL 70-110 H Lab Interpretation (test cod e = 95123-0) Abnormal [facility] GLUCOSE (AUTOMATED)2023-11-23 16:51:25* Test Item Value Reference Range Interpretation Comme nts POCT GLU (test code = 0774287113) 145 mg/dL 70-110 H Lab Interpretation (test cod e = 37454-6) Abnormal [facility] GLUCOSE (AUTOMATED)2023-11-23 16:51:25* Test Item Value Reference Range Interpretation Comme nts POCT GLU (test code = 2843190307) 145 mg/dL 70-110 H Lab Interpretation (test cod e = 99460-1) Abnormal [facility] GLUCOSE (AUTOMATED)2023-11-23 16:51:25* Test Item Value Reference Range Interpretation Comme nts POCT GLU (test code = 7422444966) 145 mg/dL 70-110 H Lab Interpretation (test cod e = 12180-4) [facility]23-11-23 15:36:08* Test Item Value Reference Range Interpretation Comme nts APTT Patient (test code = 3173-2) 44 26-36 H Lab Interpretation (test cod e = 88184-9) [facility] 15:36:08* Test Item Value Reference Range Interpretation Comme nts APTT Patient (test code = 3173-2) 44 26-36 H Lab Interpretation (test cod e = 40508-3) [facility] (for use with Heparin Infusion)2023-11-23 15:36:08* Test Item Value Reference Range Interpretation Comme nts APTT Patient (test code = 3173-2) 44 26-36 H Lab Interpretation (test cod e = 60150-2) Abnormal [facility] Tspcg4317-59-07 15:21:35* Test Item Value Reference Range Interpretation Comme nts LACTIC ACID (test code = 9138207629) 4.80 mmol/L 0.50-2.20 H Lab Interpretation (test cod e = 50607-4) [facility]normal [facility] Qezgo1333-63-81 15:21:35* Test Item Value Reference Range Interpretation Comme nts LACTIC ACID (test code = 7735502467) 4.80 mmol/L 0.50-2.20 H Lab Interpretation (test cod e = 15211-6) Abnormal [facility] Stqia6771-81-51 15:21:35* Test Item Value Reference Range Interpretation Comme nts LACTIC ACID (test code = 4709916867) 4.80 mmol/L 0.50-2.20 H Lab Interpretation (test cod e = 25668-2) Abnormal [facility] GLUCOSE (AUTOMATED)2023-11-23 12:49:15* Test Item Value Reference Range Interpretation Comme nts POCT GLU (test code = 5256525370) 162 mg/dL 70-110 H Lab Interpretation (test cod e = 52028-7) Abnormal [facility] GLUCOSE (AUTOMATED)2023-11-23 12:49:15* Test Item Value Reference Range Interpretation Comme nts POCT GLU (test code = 2247107477) 162 mg/dL 70-110 H Lab Interpretation (test cod e = 04479-7) Abnormal [facility] GLUCOSE (AUTOMATED)2023-11-23 12:49:15* Test Item Value Reference Range Interpretation Comme nts POCT GLU (test code = 5022015790) 162 mg/dL 70-110 H Lab Interpretation (test cod e = 00960-9) Abnormal [facility]2024-[facility]-06 08:44:42* Test Item Value Reference Range Interpretation Comme nts MAGNESIUM (test code = 5416456243) 1.9 mg/dL 1.7-2.4 Lab Interpretation (test cod e = 02460-8) Normal [facility] Metabolic Panel (NA, K, CL, CO2, GLUCOSE, BUN, CREATININE, CA)2023-11-23 08:44:42* Test Item Value Reference Range Interpretation Comme nts NA (test code = 3845626365) 136 mmol/L 135-145 K (test code = 0456657608) 3.7 mmol/L 3.5-5.0 CL (test code = 6848811157) 99 mmol/L 98-108 CO2 TOTAL (test code = 7679748140) 31 mmol/L 23-31 AGAP (test code = 0180036957) 6 2-16 BUN (test code = 4315649408) 20 mg/dL 7-23 GLUCOSE (test code = 4195751563) 184 mg/dL 70-110 H CREATININE (test code = 2160-0) 0.66 mg/dL 0.50-1.04 CALCIUM (test code = 6007226185) 7.9 mg/dL 8.6-10.6 L eGFR (test code = 53102-6) 106.4 mL/min/1.73m2 CKD-EPI eGFR (2020). Assuming creatinine has been stable day-to-day for at least three months, the eGFR indicates Category G1 (>= 90 mL/min/1.73 m2) Lab Interpretation (test code = 53566-6) Abnormal [facility]2024-05-06 08:44:42* Test Item Value Reference Range Interpretation Comme nts MAGNESIUM (test code = 9302704335) 1.9 mg/dL 1.7-2.4 Lab Interpretation (test cod e = 98436-1) Normal [facility] Metabolic Panel (NA, K, CL, CO2, GLUCOSE, BUN, CREATININE, CA)2023-11-23 08:44:42* Test Item Value Reference Range Interpretation Comme nts NA (test code = 7825344601) 136 mmol/L 135-145 K (test code = 1685876684) 3.7 mmol/L 3.5-5.0 CL (test code = 1127928922) 99 mmol/L 98-108 CO2 TOTAL (test code = 1510176509) 31 mmol/L 23-31 AGAP (test code = 8879457757) 6 2-16 BUN (test code = 6647306580) 20 mg/dL 7-23 GLUCOSE (test code = 8567677395) 184 mg/dL 70-110 H CREATININE (test code = 2160-0) 0.66 mg/dL 0.50-1.04 CALCIUM (test code = 6405190581) 7.9 mg/dL 8.6-10.6 L eGFR (test code = 39830-4) 106.4 mL/min/1.73m2 CKD-EPI eGFR (2020). Assuming creatinine has been stable day-to-day for at least three months, the eGFR indicates Category G1 (>= 90 mL/min/1.73 m2) Lab Interpretation (test code = 60070-8) [facility] 08:44:42* Test Item Value Reference Range Interpretation Comme nts MAGNESIUM (test code = 7940341496) 1.9 mg/dL 1.7-2.4 Lab Interpretation (test cod e = 92026-3) Normal [facility] (NA, K, CL, CO2, GLUCOSE, BUN, CREATININE, CA)2023-11-23 08:44:42* Test Item Value Reference Range Interpretation Comme nts NA (test code = 2845872019) 136 mmol/L 135-145 K (test code = 4095694607) 3.7 mmol/L 3.5-5.0 CL (test code = 7098461408) 99 mmol/L 98-108 CO2 TOTAL (test code = 0699828385) 31 mmol/L 23-31 AGAP (test code = 7327676514) 6 2-16 BUN (test code = 8366736286) 20 mg/dL 7-23 GLUCOSE (test code = 6616805939) 184 mg/dL 70-110 H CREATININE (test code = 2160-0) 0.66 mg/dL 0.50-1.04 CALCIUM (test code = 9547302296) 7.9 mg/dL 8.6-10.6 L eGFR (test code = 22776-8) 106.4 mL/min/1.73m2 CKD-EPI eGFR (2020). Assuming creatinine has been stable day-to-day for at least three months, the eGFR indicates Category G1 (>= 90 mL/min/1.73 m2) Lab Interpretation (test code = 11214-4) [facility]:29:39* Test Item Value Reference Range Interpretation Comme [facility] APTT Patient (test code = 3173-2) 49 26-36 H Lab Interpretation (test cod e = 97556-3) [facility]23-[facility]-23 08:29:39* Test Item Value Reference Range Interpretation Comme [facility] APTT Patient (test code = 3173-2) 49 26-36 H Lab Interpretation (test cod e = 67054-5) [facility]2023-11-23 08:29:39* Test Item Value Reference Range Interpretation Comme [facility] APTT Patient (test code = 3173-2) 49 26-36 H Lab Interpretation (test cod e = 91413-6) [id number]:03* Test Item Value Reference Range Interpretation [...] g/dL 31.6-35.1 L RDW-SD (test code = 19844-3) 66.0 fL 39.0-49.9 H RDW-CV (test code = 788-0) 22.5 % 12.0-15.5 H PLT (test code = 777-3) 204 166-358 MPV (test code = 91932-7) 9.8 fL 9.5-12.9 NRBC/100 WBC (test code = 4231540800) 2.4 0.0-10.0 NRBC x10^3 (test code = 7311367997) 0.17 See_Comment [Automated messa ge] The system which generated this result transmitted reference range: 10*3/?L. The reference range was not used to interpret this result as normal/abnormal. GRAN MAT (NEUT) % (test code = 770-8) 80.3 % IMM GRAN % (test code = 4172305773) 1.70 % LYMPH % (test code = 736-9) 9.5 % MONO % (test code = 5905-5) 8.5 % EOS % (test code = 713-8) 0.0 % BASO % (test code = 706-2) 0.0 % GRAN MAT x10^3(ANC) (test code = 8267905428) 5.77 10*3/uL 1.88-7.09 IMM GRAN x10^3 (test code = 3471194694) 0.12 10*3/uL 0.00-0.06 H LYMPH x10^3 (test code = 731-0) 0.68 10*3/uL 1.32-3.29 L MONO x10^3 (test code = 742-7) 0.61 10*3/uL 0.33-0.92 EOS x10^3 (test code = 711-2) 0.03-0.39 L BASO x10^3 (test code = 704-7) 0.01-0.07 Lab Interpretation (test code = 10835-7) Abnormal [facility] with Czsc7474-73-68 08:24:03* Test Item Value Reference Range Interpretation [...] g/dL 31.6-35.1 L RDW-SD (test code = 11931-5) 66.0 fL 39.0-49.9 H RDW-CV (test code = 788-0) 22.5 % 12.0-15.5 H PLT (test code = 777-3) 204 166-358 MPV (test code = 12627-5) 9.8 fL 9.5-12.9 NRBC/100 WBC (test code = 5908150352) 2.4 0.0-10.0 NRBC x10^3 (test code = 0933638402) 0.17 See_Comment [Automated messa ge] The system which generated this result transmitted reference range: 10*3/?L. The reference range was not used to interpret this result as normal/abnormal. GRAN MAT (NEUT) % (test code = 770-8) 80.3 % IMM GRAN % (test code = 9218049998) 1.70 % LYMPH % (test code = 736-9) 9.5 % MONO % (test code = 5905-5) 8.5 % EOS % (test code = 713-8) 0.0 % BASO % (test code = 706-2) 0.0 % GRAN MAT x10^3(ANC) (test code = 8580903243) 5.77 10*3/uL 1.88-7.09 IMM GRAN x10^3 (test code = 3617063620) 0.12 10*3/uL 0.00-0.06 H LYMPH x10^3 (test code = 731-0) 0.68 10*3/uL 1.32-3.29 L MONO x10^3 (test code = 742-7) 0.61 10*3/uL 0.33-0.92 EOS x10^3 (test code = 711-2) 0.03-0.39 L BASO x10^3 (test code = 704-7) 0.01-0.07 Lab Interpretation (test code = 13399-5) Abnormal [facility] with Xxpv5294-83-45 08:24:03* Test Item Value Reference Range Interpretation [...] g/dL 31.6-35.1 L RDW-SD (test code = 72925-7) 66.0 fL 39.0-49.9 H RDW-CV (test code = 788-0) 22.5 % 12.0-15.5 H PLT (test code = 777-3) 204 166-358 MPV (test code = 81780-1) 9.8 fL 9.5-12.9 NRBC/100 WBC (test code = 2455559143) 2.4 0.0-10.0 NRBC x10^3 (test code = 0108772342) 0.17 See_Comment [Automated messa ge] The system which generated this result transmitted reference range: 10*3/?L. The reference range was not used to interpret this result as normal/abnormal. GRAN MAT (NEUT) % (test code = 770-8) 80.3 % IMM GRAN % (test code = 5968349540) 1.70 % LYMPH % (test code = 736-9) 9.5 % MONO % (test code = 5905-5) 8.5 % EOS % (test code = 713-8) 0.0 % BASO % (test code = 706-2) 0.0 % GRAN MAT x10^3(ANC) (test code = 2321129298) 5.77 10*3/uL 1.88-7.09 IMM GRAN x10^3 (test code = 3590360681) 0.12 10*3/uL 0.00-0.06 H LYMPH x10^3 (test code = 731-0) 0.68 10*3/uL 1.32-3.29 L MONO x10^3 (test code = 742-7) 0.61 10*3/uL 0.33-0.92 EOS x10^3 (test code = 711-2) 0.03-0.39 L BASO x10^3 (test code = 704-7) 0.01-0.07 Lab Interpretation (test code = 08629-0) [facility] Iddfr9185-99-48 08:04:10* Test Item Value Reference Range Interpretation Comme nts LACTIC ACID (test code = 5204479887) 4.15 mmol/L 0.50-2.20 H Lab Interpretation (test cod e = 75648-9) [facility] Mgivj9919-35-43 08:04:10* Test Item Value Reference Range Interpretation Comme nts LACTIC ACID (test code = 8178005584) 4.15 mmol/L 0.50-2.20 H Lab Interpretation (test cod e = 14843-4) [facility] Qtprz7521-69-99 08:04:10* Test Item Value Reference Range Interpretation Comme nts LACTIC ACID (test code = 4408197626) 4.15 mmol/L 0.50-2.20 H Lab Interpretation (test cod e = 69030-0) [facility] Gtwut5124-50-94 05:11:29* Test Item Value Reference Range Interpretation Comme nts LACTIC ACID (test code = 6824362981) 4.23 mmol/L 0.50-2.20 H Lab Interpretation (test cod e = 42109-6) [facility] Lfuxx0251-60-95 05:11:29* Test Item Value Reference Range Interpretation Comme nts LACTIC ACID (test code = 2993691763) 4.23 mmol/L 0.50-2.20 H Lab Interpretation (test cod e = 00717-2) [facility] Busju3906-87-24 05:11:29* Test Item Value Reference Range Interpretation Comme nts LACTIC ACID (test code = 2696554928) 4.23 mmol/L 0.50-2.20 H Lab Interpretation (test cod e = 55615-5) [facility] Citcs1089-88-98 03:16:26* Test Item Value Reference Range Interpretation Comme nts LACTIC ACID (test code = 6704562369) 3.66 mmol/L 0.50-2.20 H Lab Interpretation (test cod e = 99881-2) [facility] Voqsv3443-64-84 03:16:26* Test Item Value Reference Range Interpretation Comme nts LACTIC ACID (test code = 9570884543) 3.66 mmol/L 0.50-2.20 H Lab Interpretation (test cod e = 47634-3) [facility] Bvemd1162-89-85 03:16:26* Test Item Value Reference Range Interpretation Comme nts LACTIC ACID (test code = 8439750484) 3.66 mmol/L 0.50-2.20 H Lab Interpretation (test cod e = 10418-9) [facility] Fpxdm5669-44-87 01:21:56* Test Item Value Reference Range Interpretation Comme nts LACTIC ACID (test code = 6422922038) 3.68 mmol/L 0.50-2.20 H Lab Interpretation (test cod e = 36826-8) [facility] Rgvwj5835-92-09 01:21:56* Test Item Value Reference Range Interpretation Comme nts LACTIC ACID (test code = 3607142209) 3.68 mmol/L 0.50-2.20 H Lab Interpretation (test cod e = 91948-4) [facility] Coebb6469-14-68 01:21:56* Test Item Value Reference Range Interpretation Comme nts LACTIC ACID (test code = 8787740312) 3.68 mmol/L 0.50-2.20 H Lab Interpretation (test cod e = 24197-7) Abnormal [facility] GLUCOSE (AUTOMATED)2023-11-23 01:07:13* Test Item Value Reference Range Interpretation Comme nts POCT GLU (test code = 0090167286) 193 mg/dL 70-110 H Lab Interpretation (test cod e = 16223-7) Abnormal [facility] GLUCOSE (AUTOMATED)2023-11-23 01:07:13* Test Item Value Reference Range Interpretation Comme nts POCT GLU (test code = 2995703934) 193 mg/dL 70-110 H Lab Interpretation (test cod e = 62067-3) Abnormal [facility] GLUCOSE (AUTOMATED)2023-11-23 01:07:13* Test Item Value Reference Range Interpretation Comme nts POCT GLU (test code = 4413789982) 193 mg/dL 70-110 H Lab Interpretation (test cod e = 69902-6) [facility] Fuosa4511-77-08 23:56:10* Test Item Value Reference Range Interpretation Comme nts LACTIC ACID (test code = 4373198124) 3.82 mmol/L 0.50-2.20 H Lab Interpretation (test cod e = 31745-2) [facility] Kgahc9882-03-99 23:56:10* Test Item Value Reference Range Interpretation Comme nts LACTIC ACID (test code = 5989218840) 3.82 mmol/L 0.50-2.20 H Lab Interpretation (test cod e = 13823-3) [facility] Nftyy0154-34-29 23:56:10* Test Item Value Reference Range Interpretation Comme nts LACTIC ACID (test code = 7074628041) 3.82 mmol/L 0.50-2.20 H Lab Interpretation (test cod e = 17304-1) Abnormal [facility] GLUCOSE (AUTOMATED)2023-11-22 22:00:27* Test Item Value Reference Range Interpretation Comme nts POCT GLU (test code = 7908545981) 218 mg/dL 70-110 H Lab Interpretation (test cod e = 97111-3) Abnormal [facility] GLUCOSE (AUTOMATED)2023-11-22 22:00:27* Test Item Value Reference Range Interpretation Comme nts POCT GLU (test code = 5204138825) 218 mg/dL 70-110 H Lab Interpretation (test cod e = 19697-0) Abnormal [facility] GLUCOSE (AUTOMATED)2023-11-22 22:00:27* Test Item Value Reference Range Interpretation Comme nts POCT GLU (test code = 6085577237) 218 mg/dL 70-110 H Lab Interpretation (test cod e = 27286-7) [facility] Jenku3057-98-44 21:49:39* Test Item Value Reference Range Interpretation Comme nts LACTIC ACID (test code = 1033338651) 4.40 mmol/L 0.50-2.20 H Lab Interpretation (test cod e = 81861-9) [facility] Ptpnd0255-28-94 21:49:39* Test Item Value Reference Range Interpretation Comme nts LACTIC ACID (test code = 3093990456) 4.40 mmol/L 0.50-2.20 H Lab Interpretation (test cod e = 97069-1) [facility] Fsljd4944-80-73 21:49:39* Test Item Value Reference Range Interpretation Comme nts LACTIC ACID (test code = 2081477405) 4.40 mmol/L 0.50-2.20 H Lab Interpretation (test cod e = 65973-7) Abnormal [facility] GLUCOSE (AUTOMATED)2023-11-22 21:02:20* Test Item Value Reference Range Interpretation Comme nts POCT GLU (test code = 1269154926) 208 mg/dL 70-110 H Lab Interpretation (test cod e = 35735-4) Abnormal [facility] GLUCOSE (AUTOMATED)2023-11-22 21:02:20* Test Item Value Reference Range Interpretation Comme nts POCT GLU (test code = 1120276990) 208 mg/dL 70-110 H Lab Interpretation (test cod e = 98947-7) Abnormal [facility] GLUCOSE (AUTOMATED)2023-11-22 21:02:20* Test Item Value Reference Range Interpretation Comme nts POCT GLU (test code = 5861230011) 208 mg/dL 70-110 H Lab Interpretation (test cod e = 52023-1) [facility]normal [facility] Ldmyg7926-84-51 20:01:46* Test Item Value Reference Range Interpretation Comme nts LACTIC ACID (test code = 6873208493) 6.14 mmol/L 0.50-2.20 H Lab Interpretation (test cod e = 71001-0) [facility]normal [facility] Bpqwj2337-94-74 20:01:46* Test Item Value Reference Range Interpretation Comme nts LACTIC ACID (test code = 1227236762) 6.14 mmol/L 0.50-2.20 H Lab Interpretation (test cod e = 12058-7) [facility]normal [facility] Fdqmk7950-13-06 20:01:46* Test Item Value Reference Range Interpretation Comme nts LACTIC ACID (test code = 7550097027) 6.14 mmol/L 0.50-2.20 H Lab Interpretation (test cod e = 40190-1) Abnormal [facility] ABDOMEN UWZKAPS6438-28-27 18:29:14 Procedure: ? RIGHT UPPER QUADRANT ULTRASOUND 11/22/2023 1:27 PM Ordering physician: MEGAN RONDON Clinical indication: ?right upper quadrant pain. Abnormal LFTs. Technique: ?Multiple transverse and longitudinal sonographic images of [facility] upper quadrant were submitted. Comparison: CAT scan [...] are sonographically unremarkable inappearance. ?No evidence to ascites.[facility] ABDOMEN LIMITED 2023-11-22 18:29:14Procedure: ? [...] sonographically unremarkable inappearance. ?No evidence [facility] ascites[facility] Tran[facility] (TTE)2023-11-22 18:16:22* Test Item Value Reference Range Interpretation Comme nts Height (test code = 3901493624) 63 in Weight (test code = 4862331173) 208 lbs Systolic BP (test code = 5713773001) 146 mmHg Diastolic BP (test code = 3567559904) 103 mmHg Heart Rate (test code = 2599393494) 112 bpm BSA (test code = 9404097572) 1.97 m2 LVOT diameter (test code = 0514204108) 2.5 cm LVOT area (test code = 0336738616) 5.00 cm2 LA size (test code = 2073295483) 4.2 cm MV Peak E Evette (test code = 9143360811) 128.5 cm/s MV Peak A Evette (test code = 8371699388) 62.4 cm/s E/A ratio (test code = 8358844344) 2.06 ratio E wave decelartion time (test code = 2336945922) 0.12 s MV Prop V (test code = 8358239010) 38.00 cm/s LAV(MOD-sp4) (test code = 9626390509) 68.70 mL Tapse (test code = 6144578251) 0.7 cm LA Volume Index (BP) (test code = 2961075623) 34.6 mL/m2 LA volume (BP) (test code = 0223265411) 68.0 mL LAV(MOD-sp2) (test code = 8743981667) 66.30 mL Ao peak evtete (test code = 7021190438) 124.9 cm/s Ao max PG (test code = 0215941279) 6.20 mm[Hg] AV peak gradient (test code = 5885094444) 6.2 mmHg LVOT stroke volume (test code = 0546738545) 42.40 cm3 LVOT peak evette (test code = 5011262605) 67.8 cm/s LVOT mn grad (test code = 6497667188) 0.9 mmHg AV LVOT peak gradient (test code = 1884129599) 1.84 mmHg LVOT peak VTI (test code = 9584948780) 8.4 cm AV area peak evette (test code = 1729771838) 2.7 cm2 LV V1 mean (test code = 1356849764) 43.20 cm/s TR Peak Evette (test code = 3928603858) 247.7 cm/s Triscuspid Valve Regurgitation Peak Gradient (test code = 5914996901) 24.5 mmHg MR max PG (test code = 8955375211) 85.20 mm[Hg] MR max evette (test code = 7109254676) 461.50 cm/s Mr max evette (test code = 5960655364) 461.5 m/s AV regurgitation pressure 1/2 time (test code = 1081645812) 305.5 ms AI dec slope (test code = 9706800017) 432.10 cm/s2 AI max evette (test code = 7060558207) 450.60 cm/s AI max PG (test code = 4768530817) 81.20 mm[Hg] LVIDD (test code = 0223544409) 5.00 cm Left Ventricular End Diastolic Volume by Teichholz Method (test code = 6627537) 116.6 mL IVS (test code = 5337529188) 0.93 cm Interventricular Septum Diastolic Thickness by 2D (test code = 6946909) 0.93 cm LVPWD (test code = 0409523363) 1.00 cm PW (test code = 4936868015) 1.00 cm 0.6-1.1 EF(Teich) (test code = 8282869145) 33.90 % LVIDS (test code = 9834177926) 4.20 cm Left Ventricular End Systolic Volume by Teichholz Method (test code = 8881577) 77.1 mL FS (test code = 4330482046) 16 % EF - 2D (test code = 36759064) 33.90 % Radiology Study observation (narrative) (test code = 31318-8) LYNDSAY (test code = LYNDSAY) ?Left?Ventricle: Left [...] of Definity ultrasound enhancing agent used. [facility] 18:16:22* Test Item Value Reference Range Interpretation Comme nts Height (test code = 0478873684) 63 in Weight (test code = 2732074730) 208 lbs Systolic BP (test code = 6497140308) 146 mmHg Diastolic BP (test code = 3420695534) 103 mmHg Heart Rate (test code = 0581770913) 112 bpm BSA (test code = 4828161022) 1.97 m2 LVOT diameter (test code = 6832840647) 2.5 cm LVOT area (test code = 4111106600) 5.00 cm2 LA size (test code = 7399115630) 4.2 cm MV Peak E Evette (test code = 3921490726) 128.5 cm/s MV Peak A Evette (test code = 4635863922) 62.4 cm/s E/A ratio (test code = 0124240204) 2.06 ratio E wave decelartion time (test code = 3686445573) 0.12 s MV Prop V (test code = 4751930457) 38.00 cm/s LAV(MOD-sp4) (test code = 0564069558) 68.70 mL Tapse (test code = 6004673233) 0.7 cm LA Volume Index (BP) (test code = 9388886587) 34.6 mL/m2 LA volume (BP) (test code = 9057950365) 68.0 mL LAV(MOD-sp2) (test code = 5966777158) 66.30 mL Ao peak evette (test code = 4096345918) 124.9 cm/s Ao max PG (test code = 9222090362) 6.20 mm[Hg] AV peak gradient (test code = 8899130217) 6.2 mmHg LVOT stroke volume (test code = 9434002431) 42.40 cm3 LVOT peak evette (test code = 4097421040) 67.8 cm/s LVOT mn grad (test code = 0529608658) 0.9 mmHg AV LVOT peak gradient (test code = 6362246928) 1.84 mmHg LVOT peak VTI (test code = 2295957176) 8.4 cm AV area peak evette (test code = 9023646746) 2.7 cm2 LV V1 mean (test code = 8764997320) 43.20 cm/s TR Peak Evette (test code = 9169810850) 247.7 cm/s Triscuspid Valve Regurgitation Peak Gradient (test code = 6112787158) 24.5 mmHg MR max PG (test code = 3009959307) 85.20 mm[Hg] MR max evette (test code = 4813329771) 461.50 cm/s Mr max evette (test code = 3538494879) 461.5 m/s AV regurgitation pressure 1/2 time (test code = 1200992254) 305.5 ms AI dec slope (test code = 0647663837) 432.10 cm/s2 AI max evette (test code = 3891838414) 450.60 cm/s AI max PG (test code = 0973277563) 81.20 mm[Hg] LVIDD (test code = 5259410244) 5.00 cm Left Ventricular End Diastolic Volume by Teichholz Method (test code = 4358147) 116.6 mL IVS (test code = 7185667292) 0.93 cm Interventricular Septum Diastolic Thickness by 2D (test code = 8571951) 0.93 cm LVPWD (test code = 2508526222) 1.00 cm PW (test code = 3787011705) 1.00 cm 0.6-1.1 EF(Teich) (test code = 6821660271) 33.90 % LVIDS (test code = 5946826020) 4.20 cm Left Ventricular End Systolic Volume by Teichholz Method (test code = 1461559) 77.1 mL FS (test code = 4987137394) 16 % EF - 2D (test code = 75015064) 33.90 % Radiology Study observation (narrative) (test code = 16825-8) LYNDSAY (test code = LYNDSAY) ?Left?Ventricle: Left [...] of Definity ultrasound enhancing agent used. [facility] Tbjol9577-39-88 17:29:30* Test Item Value Reference Range Interpretation Comme nts LACTIC ACID (test code = 8761586589) 4.00 mmol/L 0.50-2.20 H QUES Lab Interpretation (test cod e = 55810-6) [facility]normal [facility] Hkgfg1150-06-17 17:29:30* Test Item Value Reference Range Interpretation Comme nts LACTIC ACID (test code = 2699750940) 4.00 mmol/L 0.50-2.20 H QUES Lab Interpretation (test cod e = 91608-6) [facility]normal [facility] Quxie9944-94-92 17:29:30* Test Item Value Reference Range Interpretation Comme nts LACTIC ACID (test code = 9326845619) 4.00 mmol/L 0.50-2.20 H QUES Lab Interpretation (test cod e = 38777-1) Abnormal [facility] GLUCOSE (AUTOMATED)2023-11-22 17:01:27* Test Item Value Reference Range Interpretation Comme nts POCT GLU (test code = 6886773669) 152 mg/dL 70-110 H Notified Provide r Lab Interpretation (test code = 50808-0) Abnormal [facility] GLUCOSE (AUTOMATED)2023-11-22 17:01:27* Test Item Value Reference Range Interpretation Comme nts POCT GLU (test code = 4001571588) 152 mg/dL 70-110 H Notified Provide r Lab Interpretation (test code = 08519-5) Abnormal [facility] GLUCOSE (AUTOMATED)2023-11-22 17:01:27* Test Item Value Reference Range Interpretation Comme nts POCT GLU (test code = 6575864214) 152 mg/dL 70-110 H Notified Provide r Lab Interpretation (test code = 10645-2) Abnormal [facility] Oddis4438-94-28 16:28:02* Test Item Value Reference Range Interpretation Comme nts IRON (test code = 4059792350) 44 ug/dL 50-160 L TIBC (test code = 1998446897) 395 ug/dL 250-410 % FE SAT (test code = 7897698103) 11 % 20-50 L Lab Interpretation (test cod e = 39966-9) Abnormal [facility] Jkxqx7350-96-15 16:28:02* Test Item Value Reference Range Interpretation Comme nts IRON (test code = 0279142549) 44 ug/dL 50-160 L TIBC (test code = 5788077653) 395 ug/dL 250-410 % FE SAT (test code = 8459835140) 11 % 20-50 L Lab Interpretation (test cod e = 50300-6) Abnormal [facility] Ninfd8985-67-29 16:28:02* Test Item Value Reference Range Interpretation Comme nts IRON (test code = 3200207488) 44 ug/dL 50-160 L TIBC (test code = 5256609481) 395 ug/dL 250-410 % FE SAT (test code = 0783394914) 11 % 20-50 L Lab Interpretation (test cod e = 75049-0) Abnormal [facility] Metabolic Panel (25694)2023-11-22 16:20:58* Test Item Value Reference Range Interpretation Comme nts NA (test code = 1020007279) 135 mmol/L 135-145 K (test code = 8134236694) 4.0 mmol/L 3.5-5.0 Slight hemolysis CL (test code = 5586699333) 108 mmol/L 98-108 CO2 TOTAL (test code = 4224986064) 20 mmol/L 23-31 L AGAP (test code = 2676073695) 7 2-16 BUN (test code = 2145824163) 20 mg/dL 7-23 Slight hemolysis GLUCOSE (test code = 5388552079) 136 mg/dL 70-110 H CREATININE (test code = 2160-0) 0.48 mg/dL 0.50-1.04 L TOTAL BILI (test code = 9010224420) 0.8 mg/dL 0.1-1.1 CALCIUM (test code = 6655688845) 6.7 mg/dL 8.6-10.6 L T PROTEIN (test code = 1025916688) 5.6 g/dL 6.3-8.2 L ALBUMIN (test code = 3206626219) 3.1 g/dL 3.5-5.0 L ALK PHOS (test code = 4773693000) 282 U/L 34-122 H Slight hemolysis ALTv (test code = 1742-6) 196 U/L 5-35 H AST(SGOT) (test code = 7332322762) 56 U/L 13-40 H Slight hemolysis eGFR (test code = 07104-4) 114.8 mL/min/1.73m2 CKD-EPI eGFR (2020). Assuming creatinine has been stable day-to-day for at least three months, the eGFR indicates Category G1 (>= 90 mL/min/1.73 m2) Lab Interpretation (test code = 25225-1) Abnormal [facility] Metabolic Panel (75861)2023-11-22 16:20:58* Test Item Value Reference Range Interpretation Comme nts NA (test code = 5520363500) 135 mmol/L 135-145 K (test code = 0357769233) 4.0 mmol/L 3.5-5.0 Slight hemolysis CL (test code = 0308146515) 108 mmol/L 98-108 CO2 TOTAL (test code = 7505912823) 20 mmol/L 23-31 L AGAP (test code = 1126555925) 7 2-16 BUN (test code = 4359707013) 20 mg/dL 7-23 Slight hemolysis GLUCOSE (test code = 4019981830) 136 mg/dL 70-110 H CREATININE (test code = 2160-0) 0.48 mg/dL 0.50-1.04 L TOTAL BILI (test code = 2144459740) 0.8 mg/dL 0.1-1.1 CALCIUM (test code = 3605837045) 6.7 mg/dL 8.6-10.6 L T PROTEIN (test code = 3473039883) 5.6 g/dL 6.3-8.2 L ALBUMIN (test code = 9761895362) 3.1 g/dL 3.5-5.0 L ALK PHOS (test code = 7163774235) 282 U/L 34-122 H Slight hemolysis ALTv (test code = 1742-6) 196 U/L 5-35 H AST(SGOT) (test code = 4324178865) 56 U/L 13-40 H Slight hemolysis eGFR (test code = 63053-6) 114.8 mL/min/1.73m2 CKD-EPI eGFR (2020). Assuming creatinine has been stable day-to-day for at least three months, the eGFR indicates Category G1 (>= 90 mL/min/1.73 m2) Lab Interpretation (test code = 31487-1) Abnormal [facility] Metabolic Panel (59276)2023-11-22 16:20:58* Test Item Value Reference Range Interpretation Comme nts NA (test code = 9657715960) 135 mmol/L 135-145 K (test code = 4519371633) 4.0 mmol/L 3.5-5.0 Slight hemolysis CL (test code = 1531399954) 108 mmol/L 98-108 CO2 TOTAL (test code = 5488908176) 20 mmol/L 23-31 L AGAP (test code = 1609971058) 7 2-16 BUN (test code = 4122990806) 20 mg/dL 7-23 Slight hemolysis GLUCOSE (test code = 2710751417) 136 mg/dL 70-110 H CREATININE (test code = 2160-0) 0.48 mg/dL 0.50-1.04 L TOTAL BILI (test code = 9448194534) 0.8 mg/dL 0.1-1.1 CALCIUM (test code = 0331737693) 6.7 mg/dL 8.6-10.6 L T PROTEIN (test code = 1972983146) 5.6 g/dL 6.3-8.2 L ALBUMIN (test code = 9481078927) 3.1 g/dL 3.5-5.0 L ALK PHOS (test code = 5006497602) 282 U/L 34-122 H Slight hemolysis ALTv (test code = 1742-6) 196 U/L 5-35 H AST(SGOT) (test code = 3084644345) 56 U/L 13-40 H Slight hemolysis eGFR (test code = 73011-6) 114.8 mL/min/1.73m2 CKD-EPI eGFR (2020). Assuming creatinine has been stable day-to-day for at least three months, the eGFR indicates Category G1 (>= 90 mL/min/1.73 m2) Lab Interpretation (test code = 58464-2) [facility] ZUIRTUILK4601-63-19 15:51:03PROCEDURE: CT ANGIO CHEST WITH CONTRAST - [...] A left adrenal 2.7cm nodule suspected. [facility] HFZVIVUQN6876-66-96 15:51:03PROCEDURE: CT ANGIO CHEST WITH CONTRAST - [...] A left adrenal 2.7cm nodule suspected. [facility] Ngykp1297-64-70 14:33:11* Test Item Value Reference Range Interpretation Comme nts LACTIC ACID (test code = 7348940442) 4.04 mmol/L 0.50-2.20 H QUES Lab Interpretation (test cod e = 15812-2) [facility]normal [facility] Irtnd4024-60-26 14:33:11* Test Item Value Reference Range Interpretation Comme nts LACTIC ACID (test code = 7600595952) 4.04 mmol/L 0.50-2.20 H QUES Lab Interpretation (test cod e = 50520-9) [facility]normal [facility] Sqsiu8467-11-86 14:33:11* Test Item Value Reference Range Interpretation Comme nts LACTIC ACID (test code = 8179324639) 4.04 mmol/L 0.50-2.20 H QUES Lab Interpretation (test cod e = 53841-2) Abnormal [facility] GLUCOSE (AUTOMATED)2023-11-22 13:26:51* Test Item Value Reference Range Interpretation Comme nts POCT GLU (test code = 2057687958) 180 mg/dL 70-110 H Notified Provide r Lab Interpretation (test code = 66149-6) Abnormal [facility] GLUCOSE (AUTOMATED)2023-11-22 13:26:51* Test Item Value Reference Range Interpretation Comme nts POCT GLU (test code = 8060268445) 180 mg/dL 70-110 H Notified Provide r Lab Interpretation (test code = 01699-6) Abnormal [facility] GLUCOSE (AUTOMATED)2023-11-22 13:26:51* Test Item Value Reference Range Interpretation Comme nts POCT GLU (test code = 3528276536) 180 mg/dL 70-110 H Notified Provide r Lab Interpretation (test code = 59117-5) [facility] [id number] 09:05:30 Exam: XR SHOULDER 2+ VW RIGHT, 11/22/2023 1:45 AM. Ordering Physician: IVIS MCDERMOTT. History: R arm injury . Technique: Routine view(s) XR SHOULDER 2+ VW RIGHT. Comparison: None. Findings: No evidence of traumatic malalignment. No acute fracture. 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 Eburnation of thegreater tuberosity, sequela of chronic rotator cuff injury. No focalsofttissue swelling. Lungs are clear as visualized. Cervical fusion. [facility] [id number] 09:05:30 Exam: XR SHOULDER 2+ VW RIGHT, 11/22/2023 1:45 AM. Ordering Physician: IVIS MCDERMOTT. History: R arm injury . Technique: Routine view(s) XR SHOULDER 2+ VW RIGHT. Comparison: None. Findings: No evidence of traumatic malalignment. No acute fracture. 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 Eburnation of thegreater tuberosity, sequela of chronic rotator cuff injury. No focalsofttissue swelling. Lungs are clear as visualized. Cervical fusion. [facility] LOWER EXTREMITY VEIN WITH COMPRESSION [...] waveforms on the right. No DVT on theleft.[facility] LOWER EXTREMITY VEIN WITH COMPRESSION [...] on the right. No DVT on theleft.[facility] HospitalL[facility] Whole Blood 2023-11-22 08:16:23* Test Item Value Reference Range Interpretation Comme nts LACTIC ACID (test code = 2685569065) 3.93 mmol/L 0.50-2.20 H Lab Interpretation (test cod e = 10963-4) Abnormal [facility] HospitalL[facility] Acid Whole [id number] 08:16:23* Test Item Value Reference Range Interpretation Comme nts LACTIC ACID (test code = 6586825980) 3.93 mmol/L 0.50-2.20 H Lab Interpretation (test cod e = 66385-9) Abnormal [facility] HospitalL[facility] Whole [id number] 08:16:23* Test Item Value Reference Range Interpretation Comme nts LACTIC ACID (test code = 4911319858) 3.93 mmol/L 0.50-2.20 H Lab Interpretation (test cod e = 59673-3) Abnormal [facility] HospitalProthrombin Time / [id number] 05:00:31* Test Item Value Reference Range Interpretation Comme [facility] PROTIME PATIENT (test code = 5964-2) 15.4 10.1-12.6 H INR (test code = 6301-6) 1.3 Normal INR <1.1; Warfarin Therapeutic range 2.0 to 3.0 or 2.5 to 3.5, depending upon the indications. Lab Interpretation (test code = 00792-4) [facility] Test Item Value Reference Range Interpretation Comme [facility] APTT Patient (test code = 3173-2) 27 26-36 LYNDSAY (test code = LYNDSAY) The [facility] patient population mean normal value for aPTT is 30 seconds. Lab Interpretation (test code = 00142-2) Normal [facility] HospitalProthrombin Time / [id number] 05:00:31* Test Item Value Reference Range Interpretation Comme [facility] PROTIME PATIENT (test code = 5964-2) 15.4 10.1-12.6 H INR (test code = 6301-6) 1.3 Normal INR <1.1; Warfarin Therapeutic range 2.0 to 3.0 or 2.5 to 3.5, depending upon the indications. Lab Interpretation (test code = 84668-4) [facility] 05:00:31* Test Item Value Reference Range Interpretation Comme nts APTT Patient (test code = 3173-2) LYNDSAY (test code = LYNDSAY) The [facility] patient population mean normal value for aPTT is 30 seconds. Lab Interpretation (test code = 97925-6) Normal [facility] HospitalProthrombin Time / [id number] 05:00:31* Test Item Value Reference Range Interpretation Comme [facility] PROTIME PATIENT (test code = 5964-2) 15.4 10.1-12.6 H INR (test code = 6301-6) 1.3 Normal INR <1.1; Warfarin Therapeutic range 2.0 to 3.0 or 2.5 to 3.5, depending upon the indications. Lab Interpretation (test code = 97786-8) Abnormal [facility] HospitalaPTT2024-05-05 05:00:31* Test Item Value Reference Range Interpretation Comme [facility] APTT Patient (test code = 3173-2) LYNDSAY (test code = LYNDSAY) The [facility] patient population mean normal value for aPTT is 30 seconds. Lab Interpretation (test code = 39819-0) Normal [facility] HospitalThyroid Stimulating Lbzpipb2066-27-61 04:25:31 * Test Item Value Reference Range Interpretation Comme nts TSH (test code = 1900200444) 5.26 0.45-4.70 H Lab Interpretation (test cod e = 46518-4) Abnormal [facility] HospitalThyroid Stimulating Upikzri3181-84-95 04:25:31 * Test Item Value Reference Range Interpretation Comme nts TSH (test code = 2432799154) 5.26 0.45-4.70 H Lab Interpretation (test cod e = 62254-8) Abnormal [facility] HospitalThy[facility] Stimulating Bmzeujh9792-20-72 04:25:31 * Test Item Value Reference Range Interpretation Comme nts TSH (test code = 6572451766) 5.26 0.45-4.70 H Lab Interpretation (test cod e = 68951-0) Abnormal [facility] HospitalCritical Rafy6062-53-75 04:18:14Megan Rondon MD ? ? 11/21/2023 11:18 [...] procedures and treating other patients.[facility] 04:11:28* Test Item Value Reference Range Interpretation Comme nts FREE T4 (test code = 6553721956) 1.07 0.78-2.20 Lab Interpretation (test cod e = 89080-0) Normal [facility] 04:11:28* Test Item Value Reference Range Interpretation Comme nts FREE T4 (test code = 2976845933) 1.07 0.78-2.20 Lab Interpretation (test cod e = 57807-0) Normal [facility] 04:11:28* Test Item Value Reference Range Interpretation Comme nts FREE T4 (test code = 7409636057) 1.07 0.78-2.20 Lab Interpretation (test cod e = 76401-3) [facility] [id number] 03:22:56Exam: Chest (1 View), 11/21/2023 9:15 PM. Ordering Physician: MEGAN RONDON. History: Chest pain. Technique: One view of the chest. Comparison: 12/11/2022. Findings: Cardiac silhouette is moderately enlarged. There is no pneumothorax. Thereis no consolidation or pleural effusion. Stable mild diffuse interstitialopacities are noted. Pleural and diaphragmatic contours are normal. Changesof anterior ce rvical discectomy and fusion are seen.[facility] HospitalXR CHEST 1 [id number] 03:22:56Exam: Chest (1 View), 11/21/2023 9:15 PM. Ordering Physician: MEGAN RONDON. History: Chest pain. Technique: One view of the chest. Comparison: 12/11/2022. Findings: Cardiac silhouette is moderately enl arged. There is no pneumothorax. Thereis no consolidation or pleural effusion. Stable mild diffuse interstitialopacities are noted. Pleural and diaphragmatic contours are normal. Changesof anterior cervical discectomy and fusion are seen. [facility] HospitalRADIOLOGY WRHVWNVOLNNKX1986-20-09 18:34:06 Ordered by an unspecified provider.[facility] HospitalRADIOLOGY UHEVFNWSNVCAV6548-00-24 19:18:01Ordered by an unspecified provider.[facility] HospitalBLOOD ILYCHWS5343-61-40 07:00:10* Test Item Value Reference Range Interpretation Comme nts CULTURE (BEAKER) (test code = 1095) No growth in 5 days XR KNEE 3 VIEWS LEFT Non-Weight Mzgikgj0257-75-01 09:27:00XR KNEE 3 VIEWS LEFT CLINICAL INDICATION: S/p fall COMPARISON: None FINDINGS: 3views of the left kne e. There is no fracture or malalignment. The femorotibial andfemoropatellar joint spaces are intact. No joint fluid is demonstrated.Surrounding soft tissues are unremarkable. Scattered atheroscleroticvascular calcifications.[facility] CenterXR KNEE 3 VIEWS CVHF6116-12-02 09:27:00 [facility] 1970 Sex: FXR KNEE 3 VIEWS LEFT CLINICAL INDICATION: S/p fall COMPARISON: NoneFINDINGS: 3views of the left knee.There is no fracture or malalignment. The femorotibial andfemoropatellar joint spaces are intact. No joint fluid is demonstrated.Surrounding soft tissues are unremarkable. Scattered atheroscleroticvascular calcifications.IMPRESSION: No acute fracture or malalignment of the knee Electronically Signed By: Maxim Sultana09/08/2023 09:29 CDTWorkstation Name: [id number] gcakm9166-65-89 08:53:50* Test Item Value Reference Range Interpretation Comme nts POC-Glucose Meter (test code = 1538) 101 mg/dL 70-110 : TESTED AT [facility] [address] [facility], [address]: Net Developer Software Engineer C/Signs And Displays Sales Representative ID = [id number] for [employer], Energy Storage Systemsriverside shore memorial hospitalu Lab Interpretation (test code = 58106-9) Normal [facility] CenterPOCT-GLUCOSE GTVQM8883-09-21 08:53:50* Test Item Value Reference Range Interpretation Comme nts POC-GLUCOSE METER (BEAKER) (test code = 1538) 101 mg/dL 70-110 : TESTED AT [facility] [address], [address]: Net Developer Software Engineer C/Signs And Displays Sales Representative ID = [id number] for eh, [employer] BASIC METABOLIC VSMPY2700-08-42 05:40:45* Test Item Value Reference Range Interpretation [...] GFR is not applicable for dialysis patients Net Developer Software Engineer C ID - ILWSKWKNNRPJSQ0693-15-20 05:40:45* Test Item Value Reference Range Interpretation Comme nts MAGNESIUM (BEAKER) (test cod e = 627) 2.1 mg/dL 1.6-2.6 Net Developer Software Engineer C ID - [id number] 05:40:45* Test Item Value Reference Range Interpretation Comme nts PHOSPHORUS (BEAKER) (test co de = 604) 5.0 mg/dL 2.3-4.7 H Net Developer Software Engineer C ID - ADMINCBC W/PLT COUNT & AUTO [id number] 04:49:23* Test Item Value Reference Range Interpretation [...] code = 2801) 0.40 % 0.00-1.00 POCT-GLUCOSE [id number] 21:40:23* Test Item Value Reference Range Interpretation Comme nts POC-GLUCOSE METER (BEAKER) (test code = 1538) 144 mg/dL 70-110 H : TESTED AT [facility] [address] [facility] [place], [address]: Net Developer Software Engineer C/Signs And Displays Sales Representative ID = [id number] for Diana Baeza Venous doppler legs wfispdxyc5429-02-24 14:27:12PV LAB - Lower Extremities DVT Study Demographics Patient Name YUE ROMERO Date of Study 09/07/2023 [place] Age 53 Visit Number [id number] Gender Female Accession Number [id number] Dateof 1970 Referring EDWARD CADIZ Room Number 2260 Physician Contractor [employer] Adalberto Wood Interpreting John Solorio, Physician FellowProcedureType [...] cm/s ; Diameters are measured in [facility] [id number] 04:05:54* Test Item Value Reference Range Interpretation Comme nts MAGNESIUM (BEAKER) (test code = 627) 2.0 mg/dL 1.6-2.6 Specimen sligh tly hemolyzed Net Developer Software Engineer C ID - MADELINE QUCHWZWZCFP8306-57-61 04:05:54* Test Item Value Reference Range Interpretation Comme nts PHOSPHORUS (BEAKER) (test code = 604) 4.5 mg/dL 2.3-4.7 Specimen sligh tly hemolyzed Net Developer Software Engineer C ID - MADELINE WBASIC METABOLIC [id number] 04:05:54* Test Item Value Reference Range Interpretation [...] GFR is not applicable for dialysis patients Net Developer Software Engineer C ID - MADELINE WCBC W/PLT COUNT & AUTO [id number] 03:40:48* Test Item Value Reference Range Interpretation [...] code = 2801) 0.30 % 0.00-1.00 POCT-GLUCOSE [id number] 21:28:35* Test Item Value Reference Range Interpretation Comme nts POC-GLUCOSE METER (BEAKER) (test code = 1538) 127 mg/dL 70-110 H : TESTED AT [address], [address]: Net Developer Software Engineer C/Signs And Displays Sales Representative ID = [id number] for Ryan Morin POCT-GLUCOSE [id number] 18:49:21* Test Item Value Reference Range Interpretation Comme nts POC-GLUCOSE METER (BEAKER) (test code = 1538) 122 mg/dL 70-110 H : TESTED AT [address], [address]: Net Developer Software Engineer C/Signs And Displays Sales Representative ID = [id number] for Lauren Santillan POCT-GLUCOSE [id number] 13:27:27* Test Item Value Reference Range Interpretation Comme nts POC-GLUCOSE METER (BEAKER) (test code = 1538) 130 mg/dL 70-110 H : TESTED AT [place] [id number] [facility], [address]: Net Developer Software Engineer C/Signs And Displays Sales Representative ID = [id number] for Lauren Santillan [id number] 09:09:14* Test Item Value Reference Range Interpretation Comme nts MAGNESIUM (BEAKER) (test cod e = 627) 2.2 mg/dL 1.6-2.6 [id number] 09:09:14* Test Item Value Reference Range Interpretation Comme nts PHOSPHORUS (BEAKER) (test co de = 604) 4.8 mg/dL 2.3-4.7 H BASIC METABOLIC [id number] 09:09:14* Test Item Value Reference Range Interpretation [...] is not applicable for dialysis patients POCT-GLUCOSE [id number] 08:33:30* Test Item Value Reference Range Interpretation Comme nts POC-GLUCOSE METER (BEAKER) (test code = 1538) 132 mg/dL 70-110 H : TESTED AT [facility] [address] [facility] [place], [address]: Net Developer Software Engineer C/Signs And Displays Sales Representative ID = [id number] for Lauren Santillan CBC W/PLT COUNT & AUTO [id number] 05:47:59* Test Item Value Reference Range Interpretation [...] code = 2801) 0.40 % 0.00-1.00 POCT-GLUCOSE [id number] 21:35:37* Test Item Value Reference Range Interpretation Comme nts POC-GLUCOSE METER (BEAKER) (test code = 1538) 129 mg/dL 70-110 H : TESTED AT [facility] [address] [facility] [place], [address]: Net Developer Software Engineer C/Signs And Displays Sales Representative ID = [id number] for Ryan Morin MR Brain Without & With IV Rhuefpqp4347-42-71 15:49:58MR BRAIN WITH & WITHOUT IV CONTRAST [...] limits. No obstructive paranasal sinus disease. Additionalfindings: None.[facility] CenterMR BRAIN WITH & WITHOUT IV [id number] 15:49:58 [facility] 1970 Sex: [...] MRI of the brain.Electronically Signed By: Zeinab Mbokahok33/17/2024 15:53 CDTWorkstation Name: [id number] METER 2023-09-05 08:34:25* Test Item Value Reference Range Interpretation Comme nts POC-GLUCOSE METER (BEAKER) (test code = 1538) 115 mg/dL 70-110 H : TESTED AT [facility] [address] [facility], [address]: Net Developer Software Engineer C/Signs And Displays Sales Representative ID = [id number] for DOMINGA AMADOR BASIC METABOLIC [id number] 06:06:56* Test Item Value Reference Range Interpretation [...] GFR is not applicable for dialysis patients Net Developer Software Engineer C ID - [id number] 06:06:56* Test Item Value Reference Range Interpretation Comme nts MAGNESIUM (BEAKER) (test cod e = 627) 2.2 mg/dL 1.6-2.6 Net Developer Software Engineer C ID - [id number] 06:06:56* Test Item Value Reference Range Interpretation Comme nts PHOSPHORUS (BEAKER) (test co de = 604) 3.8 mg/dL 2.3-4.7 Net Developer Software Engineer C ID - ADMINCBC W/PLT COUNT & AUTO [id number] 05:29:32* Test Item Value Reference Range Interpretation [...] code = 2801) 0.50 % 0.00-1.00 POCT-GLUCOSE [id number] 04:55:18* Test Item Value Reference Range Interpretation Comme nts POC-GLUCOSE METER (BEAKER) (test code = 1538) 99 mg/dL 70-110 : TESTED AT [facility] [address] [facility], [address]: Net Developer Software Engineer C/Signs And Displays Sales Representative ID = [id number] for Rosa Morinn POCT-GLUCOSE [id number] 21:49:23* Test Item Value Reference Range Interpretation Comme nts POC-GLUCOSE METER (BEAKER) (test code = 1538) 124 mg/dL 70-110 H : TESTED AT [facility] [address] [facility], [address]: Net Developer Software Engineer C/Signs And Displays Sales Representative ID = [id number] for Rosa Morinn POCT-GLUCOSE [id number] 15:55:53* Test Item Value Reference Range Interpretation Comme nts POC-GLUCOSE METER (BEAKER) (test code = 1538) 126 mg/dL 70-110 H : TESTED AT [facility] [address] [facility], [address]: Net Developer Software Engineer C/Signs And Displays Sales Representative ID = [id number] for Hemanes, Diana'Constance [id number] 12:37:56* Test Item Value Reference Range Interpretation Comme nts PROCALCITONIN (BEAKER) (test code = 3036) < ng/mL <0.05 SEPSIS RISK (ng/mL)Low: 0.05-0.50Intermediate: 0.51-2.00High: >=2.01SARS- CoV2/Influenza/RSV [id number] 12:18:09* Test Item Value Reference Range Interpretation Comments SARS-COV2/RT-PCR (test code = 29084-0) Negative Negative The SARS-CoV-2 target nucleic acids [...] provider. Influenza A RT-PCR (test code = 52135-7) Negative Negative The Flu A target nucleic acids are not detected in this specimen. Influenza B RT-PCR (test code = 60939-3) Negative Negative The Flu B target nucleic acids are not detected in this specimen. RSV by RT-PCR (test code = 93320-5) Negative Negative The RSV target nucleic acids [...] the Act. Fact Sheet for Healthcare Providers:https://w [employer]/Docu ments/Xpert%20Xpres s%20SARS%20CoV-2/Fa ct%20Sheets/302-390 2%24QLVB-UJR-9%20HE ALTHCARE%20PROVIDER S%20FACT%20SHEET.pd f Fact Sheet for Healthcare Patients:https://ww [employer]ricity/Docum ents/Xpert%20Xpress %20SARS%20Cov-2/Fac t%20Sheets/302-3801 %59MUEB-ERY-9%20PAT IENT%20FACT%20SHEET .pdf Lab Interpretation (test code = 48987-0) Normal [facility]OV[facility]/INFLUENZA/RSV [id number] 12:18:09* Test Item Value Reference Range Interpretation Comme nts SARS-COV2/RT-PCR (test code = 6225848) Negative Negative The SARS-CoV-2 t arget nucleic [...] provider. INFLUENZA A RT-PCR (test code = 9401608) Negative Negative The Flu A target nucleic acids are not detected in this specimen. INFLUENZA B RT-PCR (test code = 3097645) Negative Negative The Flu B target nucleic acids are not detected in this specimen. RSV RT-PCR (test code = 8709313) Negative Negative The RSV target n ucleic [...] 564(g) of the Act.Fact Sheet for Healthcare Providers:https://www.[employer]/Documents/Xpert%20Xpress%20SARS%20CoV-2/Fact%2 0Sheets/302-8802%34ABMS-TUN-6%20HEALTHCARE%20PROVIDERS%20FACT%20SHEET.pdfFact Sheet for Healthcare Patients:https://ww w.[employer]/Documents/Xpert%20Xpress%20SARS%20Cov-2/Fact%20Sheets/302-9411%20S ARS-COV-2%20PATIENT%20FACT%20SHEET.pdfPOCT-GLUCOSE [id number] 11:08:35* Test Item Value Reference Range Interpretation Comme nts POC-GLUCOSE METER (BEAKER) (test code = 1538) 111 mg/dL 70-110 H : TESTED AT [facility] [address] [facility], [address]: Net Developer Software Engineer C/Signs And Displays Sales Representative ID = [id number] for Tramaine Daniels POCT-GLUCOSE [id number] 08:16:42* Test Item Value Reference Range Interpretation Comme nts POC-GLUCOSE METER (BEAKER) (test code = 1538) 108 mg/dL 70-110 : TESTED AT [facility] [address] [facility], [address]: Net Developer Software Engineer C/Signs And Displays Sales Representative ID = [id number] for Beata Vargas MR spine lumbar without IV faegmxdk0704-27-40 07:58:49MR LUMBAR SPINE WITHOUT IV CONTRAST, MR [...] Posterior ligament ossifications at the calcifications at H82-A64ohhsnqd moderate spinal canal stenosisPosterior disc osteophyte at the T11-T12 level causing mild spinal canalstenosis The spinal cord is normal in caliber and signal intensity. There is no significant foraminal or spinal canal stenosis. 2.1 x 2.3 cm left adrenal nodule, incompletely characterized Paraspinal soft tissues are unremarkable. Lumbar spine: Postoperative changes from posterior decompression at the L3 and U9xvnsgd. A 1.3 x 1.5 cm (AP by [...] facet arthropathy with moderatebilateral neural foraminal stenosisCHI Frank R. Howard Memorial HospitalMR thoracic spine without IV mkppeerx5260-35-34 07:58:49MR LUMBAR SPINE WITHOUT IV CONTRAST, MR [...] Posterior ligament ossifications at the calcifications at J55-Q76xphwcfx moderate spinal canal stenosisPosterior disc osteophyte at the T11-T12 level causing mild spinal canalstenosis The spinal cord is normal in caliber and signal intensity. There is no significant foraminal or spinal canal stenosis. 2.1 x 2.3 cm left adrenal nodule, incompletely characterized Paraspinal soft tissues are unremarkable. Lumbar spine: Postoperative changes from posterior decompression at the L3 and O7gjvybo. A 1.3 x 1.5 cm (AP by [...] facet arthropathy with moderatebilateral neural foraminal stenosisCHI Frank R. Howard [facility] HospitalMR spine cervical without IV uwipkwtp6050-95-68 07:58:49MR LUMBAR SPINE WITHOUT IV CONTRAST, MR [...] Posterior ligament ossifications at the calcifications at E72-I99ajilvlr moderate spinal canal stenosisPosterior disc osteophyte at the T11-T12 level causing mild spinal canalstenosis The spinal cord is normal in caliber and signal intensity. There is no significant foraminal or spinal canal stenosis. 2.1 x 2.3 cm left adrenal nodule, incompletely characterized Paraspinal soft tissues are unremarkable. Lumbar spine: Postoperative changes from posterior decompression at the L3 and O2yqrnru. A 1.3 x 1.5 cm (AP by [...] facet arthropathy with moderatebilateral neural foraminal stenosisCHI Frank R. Howard Memorial HospitalMR CERVICAL SPINE WITHOUT IV [id number] 07:58:49 [facility] : 1970 Sex: [...] ligament ossifications at the calcifications at T10- D47uysisuw moderate spinal canal stenosisPosterior disc osteophyte at the T11- T12 level causing mild spinal canalstenosisThe spinal cord is normal in caliber and signal intensity. There is no significant foraminal or spinal canal stenosis.2.1 x 2.3 cm left adrenal nodule, incompletely characterizedParaspinal soft tissues are unremarkable.Lumbar spine:Postoperative changes from posterior decompression at the L3 and E0ttugiu. A 1.3 x 1.5 cm (AP by [...] Signed By: Maxim Sultana09/04/2023 08:00 CDTWorkstation Name: [id number] THORACIC SPINE WITHOUT IV [id number] 07:58:49 [facility] : 1970 Sex: FMR [...] ligament ossifications at the calcifications at T10- F90walxllt moderate spinal canal stenosisPosterior disc osteophyte at the T11- T12 level causing mild spinal canalstenosisThe spinal cord is normal in caliber and signal intensity. There is no significant foraminal or spinal canal stenosis.2.1 x 2.3 cm left adrenal nodule, incompletely characterizedParaspinal soft tissues are unremarkable.Lumbar spine:Postoperative changes from posterior decompression at the L3 and C6pezrrw. A 1.3 x 1.5 cm (AP by [...] Signed By: Maxim Sultana09/04/2023 08:00 CDTWorkstation Name: [id number] LUMBAR SPINE WITHOUT IV [id number] 07:58:49 [facility] HEATHERGRACIELA OVERTON : 1970 Sex: FMR LUMBAR SPINE WITHOUT [...] ligament ossifications at the calcifications at T10- I13wsrsdjd moderate spinal canal stenosisPosterior disc osteophyte at the T11- T12 level causing mild spinal canalstenosisThe spinal cord is normal in caliber and signal intensity. There is no significant foraminal or spinal canal stenosis.2.1 x 2.3 cm left adrenal nodule, incompletely characterizedParaspinal soft tissues are unremarkable.Lumbar spine:Postoperative changes from posterior decompression at the L3 and H7gbqrcb. A 1.3 x 1.5 cm (AP by [...] Signed By: Maxim Sultana09/04/2023 08:00 CDTWorkstation Name: [id number] 07:46:14 * Test Item Value Reference Range Interpretation Comme nts FERRITIN (BEAKER) (test code = 361) 31.77 ng/mL 5.00-275.00 Net Developer Software Engineer C ID - hgIRON, TIBC, % SAT. (WITHOUT FERRITIN)2023-09-04 07:24:52* Test Item Value Reference Range Interpretation Comme nts IRON (BEAKER) (test code = 547) 22.0 ug/dL 40.0-160.0 L TOTAL IRON BINDING CAPACITY (BEAKER) (test code = 769) 369 ug/dL 250-450 IRON % SATURATION (2) (BEAKE R) (test code = 2590) 6 % 20-55 L Net Developer Software Engineer C ID - hgCT spine thoracic without IV ldivxzvr0213-02-14 05:42:45EXAM: CT THORACIC SPINE WITHOUT IV CONTRAST, [...] Bones/alignment: Age- indeterminate nondisplaced fracture of the D2frrppzccr elements, predominantly involving the lamina and pinusprocess.. [...] Postoperative changes in themidline posterior lumbar soft tissues.[facility] CenterCT spine lumbar without IV igtcpzuq6179-67-57 05:42:45EXAM: CT THORACIC SPINE WITHOUT IV CONTRAST, [...] Bones/alignment: Age- indeterminate nondisplaced fracture of the G8ngzpfmfhp elements, predominantly involving the lamina and pinusprocess.. [...] Postoperative changes in themidline posterior lumbar soft tissues.[facility] CenterCT LUMBAR SPINE WITHOUT IV [id number] 05:42:45[facility] : 1970 Sex: [...] spine:Bones/alignment: Age- indeterminate nondisplaced fracture of the K2qevqceudx elements, predominantly i nvolving the lamina and [...] Signed By: Suzan Weaver09/04/2023 05:45 CDTWorkstation Name: [id number] THORACIC SPINE WITHOUT IV [id number] 05:42:45 [facility] : 1970 Sex: [...] spine:Bones/alignment: Age- indeterminate nondisplaced fracture of the K6hesppdmgu elements, predominantly i nvolving the lamina and [...] Signed By: Suzan Weaver09/04/2023 05:45 CDTWorkstation Name: [id number] 2023-09-04 04:44:34* Test Item Value Reference Range Interpretation Comme nts FIBRINOGEN LEVEL (BEAKER) (t est code = 658) 410 mg/dl 225-434 Urinalysis without Ibcofmncwiu1049-59-55 03:58:52* Test Item Value Reference Range Interpretation Comme nts Color, UA (test code = 5778-6) Light Yellow Clarity, UA (test code = 5767-9) Hazy Specific Casper, UA (test code = 5811-5) 1.017 1.001-1.035 pH, UA (test code = 5803-2) 6 5.0-8.0 Protein, UA (test code = 10855-1) 10 mg/dL Negative A Glucose, UA (test code = 365) Negative Negative Ketones, UA (test code = 2514-8) Trace Negative A Bilirubin, UA (test code = 13317-7) Negative Negative Blood, UA (test code = 13507-4) Trace Negative A Nitrite, UA (test code = 5802-4) Negative Negative Leukocytes, UA (test code = 5799-2) Negative Negative Urobilinogen, UA (test code = 72524-9) 0.2 0.2-1.0 Specimen Source (test code = 2795) LYNDSAY (test code = LYNDSAY) Net Developer Software Engineer C ID - [auto]Net Developer Software Engineer C ID - tech Lab Interpretation (test code = 90480-6) Abnormal [facility] HospitalURINALYSIS WITHOUT QRJTLYJQNPQ3411-27-21 03:58:52* Test Item Value Reference Range Interpretation [...] 0.2 0.2-1.0 SOURCE(BEAKER) (test code = 2795) Net Developer Software Engineer C ID - [auto]Net Developer Software Engineer C ID - techCBC W/PLT COUNT & AUTO [...] 2801) 0.70 % 0.00-1.00 Rapid drug screen, aotio1886-16-01 02:20:15* Test Item Value Reference Range Interpretation Comme nts Barbiturate Screen (test code = 05341-2) Negative Negative Benzodiazepine Screen (test code = 76289-2) Negative Negative Cocaine (Metab.) Screen (test code = 3397-7) Positive Negative A Methadone Screen (test code = 22786-8) Negative Negative Opiate Screen (test code = 66386-0) Negative Negative Cannabinoid Screen (test code = 96588-8) Positive Negative A Amph/Methamph Screen (test code = 59993-0) Negative Negative Phencyclidine Screen (test code = 94822-3) Negative Negative pH, UA (test code = 5803-2) 6 5.0-8.0 LYNDSAY (test code = LYNDSAY) DRUG CUTOFF CONC.Cocaine 300 ng/mL Cannabinoid 50 ng/mLBenzodiazepine 200 ng/mLBarbiturate 200 ng/mLPhencyclidine 25 ng/mLOpiate 300 ng/mLMethadone 300 ng/mLAmphetamine/ 1000 ng/mL Methamphetamine This assay provides an unconfirmed qualitative test result for the clinical management of patients in emergency situations. Chain of custody not maintained. Some yakv-vpn-nmjoggi medications, as well as adulterants, may cause inaccurate results. Clinical correlation should be applied. A more comprehensive drug screen or confirmation of a detected drug may be performed upon request.Net Developer Software Engineer C ID - ADMIN Lab Interpretation (test code = 86890-0) Abnormal [facility] HospitalRAPID DRUG SCREEN, [id number] 02:20:15* Test Item Value Reference Range Interpretation [...] situations. Chain of custody not maintained. Some pymt-ehy-pohapvw medications, as well asadulterants, may cause inaccurate results. Clinical correlation should be applied. A more comprehensive drug screen or confirmation of a detected drug may be performed upon request.Net Developer Software Engineer C ID - ADMINB-TYPE NATRIURETIC FACTOR (BNP)2023-09-04 02:11:53* Test Item Value Reference Range Interpretation Comme nts B-TYPE NATRIURETIC PEPTIDE (BEAKER) (test code = 700) 1761 pg/mL 0-100 H Net Developer Software Engineer C ID - ADMINLACTIC ACID, [id number] 02:10:37* Test Item Value Reference Range Interpretation Comme nts LACTATE BLOOD VENOUS (2) (BEAKER) (test code = 2872) 1.04 mmol/L 0.50-2.00 Specimen slightl y hemolyzed Net Developer Software Engineer C ID - PBVTRKGCUKJQDCE1990-80-82 02:04:37* Test Item Value Reference Range Interpretation Comme nts PHOSPHORUS (BEAKER) (test code = 604) 4.2 mg/dL 2.3-4.7 Specimen sligh tly hemolyzed Net Developer Software Engineer C ID - ADMINCOMPREHENSIVE METABOLIC [id number] 02:04:37* Test Item Value Reference Range Interpretation [...] GFR is not applicable for dialysis patients Net Developer Software Engineer C ID - RHBMDYZTCBJJMG0430-92-96 02:04:36* Test Item Value Reference Range Interpretation Comme nts MAGNESIUM (LATOYA) (test code = 627) 2.1 mg/dL 1.6-2.6 Specimen sligh tly hemolyzed Net Developer Software Engineer C ID - [id number]-[id number] 01:45:13* Test Item Value Reference Range Interpretation [...] code = 760) 28.5 seconds 22.5-36.0 PROTHROMBIN TIME/[id number] 01:42:15* Test Item Value Reference Range Interpretation Comme nts PROTIME (LATOYA) (test code = 759) 15.8 seconds 11.9-14.2 H INR (BEAKER) (test code = 370) 1.25 <=5.90 RECOMMENDED COUMADIN/WARFARIN INR THERAPY RANGESSTANDARD DOSE: 2.0 - 3.0 Includes: PROPHYLAXIS for venous thrombosis, systemic embolization; TREATMENT for venous thrombosis and/or pulmonary embolus.HIGH RISK: Target INR is 2.5-3.5 for patients with mechanical heart valves.[id number]-[id number] 00:00:00Ordered by an unspecified provider.[facility] CenterLactic Acid Whole Blood 2023-08-12 20:51:22* Test Item Value Reference Range Interpretation Comme nts LACTIC ACID (test code = 5743425765) 1.56 mmol/L 0.50-2.20 Lab Interpretation (test cod e = 64052-2) [facility] AHAHEVK8804-06-95 07:00:09* Test Item Value Reference Range Interpretation Comme nts CULTURE (BEAKER) (test code = 1095) No growth in 5 days T-SPOT(R).[id number] 18:35:00* Test Item Value Reference Range Interpretation Comme nts T-SPOT.TB (test code = 1293490) Negative SeeBelow Normal Value: Ne gativeA negative [...] CORRECTED FOR NEG CONTROL (test code = 8663971) 1 PANEL B SPOT COUNT CORRECTED FOR NEG CONTROL (test code = 1354049) 0 NEGATIVE CONTROL (test code = 6368040) Passed POSITIVE CONTROL (test code = 0176235) Passed LYNDSAY (test code = LYNDSAY) [id number] [facility] CenterT-SPOT(R).[id number] 18:35:00* Test Item Value Reference Range Interpretation Comme nts T-SPOT.TB (test code = 43794-0) Negative SeeBelow Normal Value: Ne gativeA negative [...] CORRECTED FOR NEG CONTROL (test code = 94694-5) 0 NEGATIVE CONTROL (test code = 59091-7) Passed POSITIVE CONTROL (test code = 19929-9) Passed LYNDSAY (test code = LYNDSAY) [id number] [facility] CenterTransesophageal zpxt0916-11-36 13:41:18 Transesophageal Echocardiography Report (CHETAN) Demographics Patient Name YUE ROMERO Date of Study 06/16/2023 [place] Gender Female Visit Number [id number] Race Room Number 1055 Number Date of 1970 Referring Physician Age 53 year(s) [employer] Interpreting Physician Brian MDProcedure Type of Study [...] Tricuspid Valve Partially visualized. Pulmonic Valve Not visualized.[facility] CenterTransesophageal echo 2023-06-16 13:41:18Transesophageal Echocardiography Report (CHETAN) Demographics Patient Name YUE ROMERO Date of Study 06/16/2023 [place] Gender Female Visit Number [id number] Race Room Number 1055 Number Date of 1970 Referring Physician Age 53 year(s) [employer] Interpreting Physician Brian MDProcedure Type of Study [...] Tricuspid Valve Partially visualized. Pulmonic Valve Not visualized.[facility]SA abwifx9410-45-91 09:55:41* Test Item Value Reference Range Interpretation Comme nts Result (test code = 6463-4) No MRSA isolated [facility] [id number] 09:55:41* Test Item Value Reference Range Interpretation Comme nts CULTURE (YouAre.TV) (test code = 1095) No MRSA isolated CRYPTOCOCCAL MIISCIZ8616-36-16 15:50:36* Test Item Value Reference Range Interpretation Comme nts CRYPTOCOCCAL ANTIGEN, SERUM (YouAre.TV) (test code = 1828) Negative Negative, Interference SPUTUM CULTURE + GRAM [id number] 10:30:11* Test Item Value Reference Range Interpretation Comme nts CULTURE (YouAre.TV) (test code = 1095) PSEUDOMONAS AERUGINOSA A [...] GRAM STAIN RESULT (BEAKER) (test code = 185791) 10-15 epithelial cells GRAM STAIN RESULT (BEAKER) (test code = 322674) 2+ gram positive cocci in chains and pairs GRAM STAIN RESULT (BEAKER) (test code = 626448) 1+ gram negative rods GRAM STAIN RESULT (BEAKER) (test code = 240103) 1+ yeast 2+ Normal respiratory rebel presentVANCOMYCIN LEVEL, [id number] 06:41:26* Test Item Value Reference Range Interpretation Comme nts VANCOMYCIN TROUGH (BEAKER) ( test code = 522) 17.0 ug/mL 10.0-20.0 Net Developer Software Engineer C ID - ADMINECHO W CONTRAST & [id number] 13:44:03Transthoracic Echocardiography Report (TTE) Demographics Patient Name YUE ROMERO Date of Study 06/14/2023 [place] Gender Female Visit Number [id number] Race Room Number 1055 Number Date of 1970 Referring Aydee Go MD Physician Age 53 year(s) [employer] James Albarran AISHWARYA Interpreting Physician Brian MDProcedure Type ofStudy TTE [...] appears normal by Doppler visualized. Aorta Aortic rootsize (SInus of Valsalva diameter) is normal . Proximal ascending aorta is normal . Pericardium No pericardial effusion is visualized. IVC/SVC/PA/PV/Pleural The IVC is <2.1cm and <50% collapsible suggestive of RAP of 8 mm Hg.Chambers/Structures Left Atrium LA Volume: 109.23 ml LA Vol. Index: 57 ml/m^2 Left Ventricle LVIDd: 6.07 cm LVEDV:141.86 ml LVIDs: 4.68 cm LV Septum Diastolic: 1.11 cmLV Septum Systolic: 0.91 cm LV Length: 8.77 [...] Velocity: 0.85 m/s Peak Gradient: 2.89 mmHgCHI [facility]. [facility] HospitalECHO W CONTRAST & DOPPLER 2023-06-14 13:44:03Transthoracic Echocardiography Report (TTE) Demographics Patient Name YUE ROMERO Date of Study 06/14/2023 [place] Gender Female Visit Number [id number] Race Room Number 1055 Number Date of 1970 Referring Aydee Go MD Physician Age 53 year(s) [employer] James Albarran RDCS Interpreting Physician Brian MDProcedure [...] Eccentric LV hypertrophy. Global LV systolic function mod erately reduced . LVEF by Downs's method of disk assessment is moderately reduced (35-39%) . All of the LV segments are moderately hypokinetic . Grade 2 diastolic dysfunction (moderately increased LA pressure). 3. The right ventricular chamber size and systolic function are normal. 4. LA size is s everely enlarged . 5. There is aortic valve [...] Velocity: 0.85 m/s Peak Gradient: 2.89 mmHgCHI [facility]. [facility] HospitalHEMOGLOBIN [id number] 09:26:42* Test Item Value Reference Range Interpretation Comme nts HEMOGLOBIN A1C ELECTROPHORESIS (LINNEAAKER) (test code = 3811) 6.7 % See_Comment H [Automated me ssage] The system which generated this result transmitted reference range: <=5.6%. The reference range was not used to interpret this result as normal/abnormal. "The A1c is measured using a [facility]-certified method. HbA1c value equal to or greater than 6.5% as the diagnosis cutoff for diabetes. An HbA1c value of 5.7- 6.4% indicates increased risk for diabetes (prediabetes)."Net Developer Software Engineer C ID - ADMOperator ID - ADMECG 12 kvpu1215-95-97 09:06:12Ventricular Rate 97 BPMAtrial Rate 97 BPMP-R Interval 146 msQRS Duration 96 msQ-T Interval 378 msQTC Calculation(Bazett) 480 msP Hull 68 degreesR Hull 107 degreesT Hull 18 degrees Suspect arm leadreversal, interpretation assumes no reversalNormal sinus rhythmRightward axisNonspecific T wave abnormalityAbnormal ECGWhen compared with ECG of 30-MAR-2023 13:06,QRS axis Shifted rightConfirmed by Luis Lopez ([id number]) on 06/14/2023 9:06:07 [facility] 12 [id number] 09:06:12Ventricular Rate 97 BPMAtrial Rate 97 BPMP-R Interval 146 msQRS Duration 96 msQ-T Interval 378 msQTC Calculation(Bazett) 480 msP Hull 68 degreesR Hull 107 degreesT Hull 18 degrees Suspect arm leadreversal, interpretation assumes no reversalNormal sinus rhythmRightward axisNonspecific T wave abno rmalityAbnormal ECGWhen compared with ECG of 30-MAR-2023 13:06,QRS axis Shifted rightConfirmed by Luis Lopez ([id number]) on 06/14/2023 9:06:07 [facility] ParkBASIC METABOLIC [id number] 04:48:18* Test Item Value Reference Range Interpretation [...] GFR is not applicable for dialysis patients Net Developer Software Engineer C ID - ADMINCBC (HEMOGRAM ONLY)2023-06-14 04:22:50* Test [...] 413) 0 /100 WBC 0-0 Strep pneumoniae pnfrieg5007-22-83 23:34:41* Test Item Value Reference Range Interpretation Comme nts Strep pneumoniae Antigen (test code = 24740-4) Presumptive negative for pneumococcal pneumonia - see [...] the test. Lab Interpretation (test code = 72226-0) Normal [facility] CenterTREP PNEUMONIAE [id number] 23:34:41* Test Item Value Reference Range Interpretation [...] detection limit of the test. Legionella antigen, [id number] 23:29:07* Test Item Value Reference Range Interpretation Comme nts Legionella Urine Antigen (test code = 38532-1) Negative - see comment Negative Negative for L. pneumophila serogroup 1 antigen, suggesting no recent or current infection with this serogroup. Legionellosis cannot be ruled out since other serogroups and species may cause disease. Lab Interpretation (test code = 06338-0) Normal [facility] CenterLEGIONELLA ANTIGEN, [id number] 23:29:07* Test Item Value Reference Range Interpretation Comme nts L. PNEUMOPHILA SEROGP 1 UR AG (BEAKER) (test code = 1156) Negative - see comment Negative Negative for L. pneumophila serogroup 1 antigen, suggesting no recent or current infection with this serogroup. Legionellosis cannot be ruled out since other serogroups and species may cause disease. Venous doppler arm, [id number] 20:05:32PV LAB - Upper Extremities Veins Demographics Patient Name YUE ROMERO Date of Study 06/13/2023 [place] Age 53 Visit Number [id number] Gender Female Accession Number [id number] Date of 1970 Referring Marianela Collazo Room Number 1055 Physician [employer] Lisa Ruiz Interpreting John Solorio, Physician FellowProcedureType [...] cm/s ; Diameters are measured in [facility] HospitalVenous doppler arm, [id number] 20:05:32PV LAB - Upper Extremities Veins Demographics Patient Name YUE ROMERO Date of Study 06/13/2023 [place] Age 53 Visit Number [id number] Gender Female Accession Number [id number] Date ofBirth 1970 Referring Marianela Collazo Room Number 1055 Physician [employer] Lisa Ruiz Interpreting John Solorio, Physician FellowProcedureType [...] cm/s ; Diameters are measured in [facility] HospitalHIV-1 ANTIGEN WITH HIV-1/2 [id number] 18:36:40* Test Item Value Reference Range Interpretation Comme nts HIV-1 ANTIGEN WITH HIV 1\\T\\2 ANTIBODY (2) (LINNEABRIDGER) (test code = 2586) Nonreactive Nonreactive MR lumbar spine without & with IV fxnmlunf8338-22-20 14:53:29MR LUMBAR SPINE WITH & WITHOUT IV [...] x 1.7x 1.7 cm. Dorsal paraspinal musculature G8gypwyiiijjurkt. Postcontrast imaging demonstrates mild peripheralenhancement of the dorsal paraspinal fluid collection. Left adrenalgland 2.9 cm nodule.[facility] CenterMR lumbar spine without & with IV sceiubma6639-86-91 14:53:29MR LUMBAR SPINE WITH & WITHOUT IV [...] x 1.7x 1.7 cm. Dorsal paraspinal musculature I8ugrgmpmahlchdv. Postcontrast imaging demonstrates mild peripheralenhancement of the dorsal paraspinal fluid collection. Left adrenalgland 2.9 cm nodule.[facility] CenterMR LUMBAR SPINE WITH & WITHOUT IV [id number] 14:53:29[facility] 1970 Sex: [...] 1.7 x 1.7 cm. Dorsal paraspinal musculature N3mcesnorbuewzcf. Postcontrast imaging demonstrates mild peripheralenhancement of the [...] Signed By: Ryan Buckley06/13/2023 14:55 CDTWorkstation Name: [id number] KINASE (CK)2023-06-13 11:54:02* Test Item Value Reference Range Interpretation Comme nts CREATINE KINASE TOTAL (BEAKE R) (test code = 380) 43 U/L 29-200 Net Developer Software Engineer C ID - ADMINCOMPREHENSIVE METABOLIC [id number] 06:48:22* Test Item Value Reference Range Interpretation [...] GFR is not applicable for dialysis patients Net Developer Software Engineer C ID - ADMINPROTHROMBIN TIME/[id number] 06:40:01* Test Item Value Reference Range Interpretation [...] code = 2801) 1.70 % 0.00-1.00 H [id number] 05:26:09* Test Item Value Reference Range Interpretation Comme nts MAGNESIUM (BEAKER) (test cod e = 627) 2.0 mg/dL 1.6-2.6 Net Developer Software Engineer C ID - [id number] 05:26:09* Test Item Value Reference Range Interpretation Comme nts PHOSPHORUS (BEAKER) (test co de = 604) 3.5 mg/dL 2.3-4.7 Net Developer Software Engineer C ID - ADMINBASIC METABOLIC [id number] 05:26:08* Test Item Value Reference Range Interpretation [...] GFR is not applicable for dialysis patients Net Developer Software Engineer C ID - ADMINCBC W/PLT COUNT & AUTO [id number] 05:11:15* Test Item Value Reference Range Interpretation [...] 0.70 % 0.00-1.00 XR spine lumbar 1 [id number] 10:32:20XR SPINE LUMBAR 1 VIEW CLINICAL INDICATION: L3-4 LAMINECTOMY [facility] 1 [id number] 10:32:20XR SPINE LUMBAR 1 VIEW CLINICAL INDICATION: L3-4 LAMINECTOMY [facility] 1 VIEW 2023-06-01 10:32:20 [facility] : 1970 Sex: FXR SPINE LUMBAR 1 VIEWCLINICAL INDICATION: L3-4 LAMINECTOMYCOMPARISON: NoneIMPRESSION:A single lateral view of the lumbar spine is obtained intraoperatively.The posterior approach surgical instrument is seen at the L3-L4 level,inferior to the L3 spinous process. Results were communicated to , who concurred with the above findings. Electronically Signed By: Maxim Ramos08/01/2022 10:34 CDTWo rkstation Name: [id number] SPINE LUMBAR 1 [id number] 10:29:18 [facility] : 1970 Sex: [...] By: Maxim Jean Baptisteip108/01/2022 10:31 CDTWorkstation Name: [id number] Screen, urine 2023-06-01 05:32:52* Test Item Value Reference Range Interpretation Comme nts Preg Test, Ur (test code = 2112-1) Negative Negative Lab Interpretation (test cod e = 84087-9) Normal [facility] CenterPREGNANCY SCREEN, [id number] 05:32:52* Test Item Value Reference Range Interpretation Comme nts TEST URINE (BEAKER ) (test code = 583) Negative Negative BASIC METABOLIC [id number] 23:30:54* Test Item Value Reference Range Interpretation [...] GFR is not applicable for dialysis patients Net Developer Software Engineer C ID - ADMINPT/ESPH3758-48-45 23:15:33* Test Item Value Reference Range Interpretation [...] H CT neck soft tissue without IV mzzqxmme7392-68-10 13:45:22EXAM: CT NECK SOFT TISSUE WITHOUT IV [...] Postoperative changes from anterior cervical discectomy fusionat C3-S0Sxhjhnti Lung Apices: NormalCHI [facility]. [facility] HospitalCT neck soft tissue without IV futlgljf7191-18-90 13:45:22EXAM: CT NECK SOFT TISSUE WITHOUT IV [...] Postoperative changes from anterior cervical discectomy fusionat C3-N2Smwcmyth Lung Apices: NormalCH[facility]. [facility] HospitalCT NECK SOFT TISSUE WITHOUT IV [id number] 13:45:22 [facility] 1970 Sex: FEXAM: [...] Postoperative changes from anterior cervical discectomy fusionat C3-B4Mvhctnkk Lung Apices: NormalIMPRESSION:Exam limited by lack of intravenous contrast.1. 1.8 x 2.9 x 1.3 cm ill-defined fluid collection in the leftanterolateral neck soft tissues, suggesting evolving postoperativehemorrhage. Superimposed infection is not ex cluded.2. Retropharyngeal fluid and air measuring up to 0.8 cm in thickness,favored to be present postoperative right frontal edema. Superimposedinfection is not excluded.3. Postoperative changes from ACDF at C3- L2Btivplelasbxse Signed By: Maxim Ramos07/31/2022 13:47 CDTWorkstation Name: [id number] METABOLIC [id number] 08:13:13* Test Item Value Reference Range Interpretation [...] GFR is not applicable for dialysis patients Net Developer Software Engineer C ID - BVCBC W/PLT COUNT & AUTO [id number] 07:46:31* Test Item Value Reference Range Interpretation [...] 0.00-1.00 XR spine cervical 2 or 3 zehun7757-19-17 20:24:23TECHNIQUE: Frontal and lateral views of the cervical spine. INDICATION: Postop Standing Films. COMPARISON: None.[facility] CenterXR spine cervical 2 or 3 xzthp7360-68-22 20:24:23TECHNIQUE: Frontal and lateral views of the cervical spine. INDICATION: Postop Standing Films. COMPARISON: None.[facility] CenterXR SPINE CERVICAL 2 OR 3 [id number] 20:24:23 [facility] 1970 Sex: [...] apex.Electronically Signed By: Zachariah Garcia05/28/2023 20:26 CDTWorkstationName: [id number] fluoro non-specific up to 1 azux8056-54-71 11:45:16This is a non-reportable study with no Radiologist dictation. Please refer to your PACS to review images, or Doc Flowsheets for documentation on studies without images.[facility] CenterFL fluoro non-specific up to 1 wlok3163-72-39 11:45:16This is a non-reportable study with no Radiologist dictation. Please refer to your PACS to review images, or Doc Flowsheets for documentation on studies without images.[facility] CenterFL FLUORO NON-SPECIFIC UP TO 1 [id number] 11:45:16 [facility] : 1970 Sex: FThis is a non- reportable study with no Radiologist dictation. Please refer to your PACS to review images, or Doc Flowsheets for documentation on studies without images.FL FLUORO NON-SPECIFIC UP TO 1 [id number] 10:13:02 [facility] : 1970 Sex: FTECHNIQUE: 1 lateral fluoroscopic image of the cervical spine forlocalization.Fluoroscopic time: 3second(s).FINDINGS:The surgical pointer is at C3-C4.The findings were discussed with Dr. Garcia in theOR who concurred withthe findings.IMPRESSION:Intraoperative localization plain film as described abo ta.Electronically Signed By: Derik Reyez05/28/2023 10:15 CDTWorkstation Name: [id number], QUANTITATIVE, UHMQJHOCM3641-83-04 08:21:03* Test Item Value Reference Range Interpretation Comme nts GONADOTROPIN, CHORIONIC (HCG ) QUANT (BEAKER) (test code = 649) < mIU/mL 0-10 Non- Females: <10 mIU/mL Females: Gestation Age Reference Range(mIU/mL) 0.2-1 Week 5-50 1-2 Weeks 50-500 2-3 Weeks 100-5,000 3-4 Weeks 500-10,000 4-5 Weeks 1,000-50,000 5-6 Weeks 10,000-100,000 6-8 Weeks 15,000- 200,000 2-3 Months 10,000-100,000 Net Developer Software Engineer C ID - ADMINCULTURE, [id number] 09:28:30SPECIMEN NUMBER: [id number] CULTURE, URINE SPECIMEN NUMBER: [id number] SPECIMEN COMMENT: URINE SOURCE: URINE REPORT STATUS: FINAL FINAL REPORT: 05/15/2023 >100,000 CFU/ML UROGENITAL REBEL PRESENT NOCOMMON PATHOGENS UNLESS OTHERWISE INDICATED, ALL TESTING PERFORMED AT [facility] [address] [place] [address] HOT PLATE PRESS OPERATOR: JANNY STEINER M.D. CLIA NUMBER [id number] [place]. [id number], [id number] 12:02:50SPECIMEN NUMBER: [id number] CULTURE, URINE SPECIMEN NUMBER: [id number] SOURCE: URINE REPORT STATUS: FINAL FINAL REPORT: 05/13/2023 NO SPECIMEN RECEIVED FOR TESTING. CHARGES DELETED.BASIC METABOLIC [id number] 04:48:43* Test Item Value Reference Range Interpretation Comme nts GLUCOSE (test code = 2217) 117 MG/DL 70-99 H BUN (test code = 2208) 20 MG/DL 6-20 CREATININE (test code = 2214) 0.83 MG/DL 0.60-1.30 eGFR (2020 CKD-EPI) (test co de = 55429) 85 ML/MIN/1.73 >60 SODIUM (test code = [...] 12.7 SECONDS 12.5-14.7 INR (test code = 24261) 0.9 SEE BELOW CURRENT RECOMMENDATIONS ARE FOR AN INR OF 2.0-3.0 FOR ALL PATIENTS ON VITAMIN K ANTAGONISTS, EXCEPT THOSE WITH PROSTHETIC HEART VALVES, FOR WHOM INR OF 2.5-3.5 IS RECOMMENDED. UNLESS OTHERWISE INDICATED, ALL TESTING PERFORMED AT [facility] [address] [place] [address] H[employer] PL[employer] PRESS OPERATOR: JANNY STEINER M.D. CLIA NUMBER [id number] [facility] [place]. [id number] CBC W/AUTO DIFF WITH [id number] 01:54:17* Test Item Value Reference Range Interpretation [...] H ABS NUCLEATED RBCS (test code = 82514) 0.00 K/UL 0.00-0.11 ECG 12 ftsv1862-09-27 14:02:48Ventricular Rate 102 BPMAtrial Rate 102 BPMP-R Interval 146 msQRS Duration 90 msQ-T Interval 372 msQTC Calculation(Bazett) 484 msP Hull 11 degreesR Hull -53 degreesT Hull 29 degrees Sinus tachycardiaPossible Left atrial enlargementLeft axis deviationPoor R wave progression Cannot rule out Anterior infarct , age undetermined vs lead misplacementNonspecific T wave abnormalityProlonged QTAbnormal ECGNo previous ECGs availableConfirmed by David GARCIA BASANT ([id number]) on 04/06/2023 2:02:46 [facility] W CONTRAST & [id number] 13:11:39Transthoracic Echocardiography Report (TTE) Demographics Patient Name YUE ROMERO Date of Study 03/31/2023 [place] Gender Female Visit Number [id number] Race Room Number 2227 Number Date of 1970 Referring Physician Mariah Aldridge MD Age 53 year(s) 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 INDICATION: CHf. COMPARISON: None. FINDINGS: LINES/TUBES: None. HEART AND MEDIASTINUM: Cardiomediastinal contour is within normallimits. LUNGS: The lungs are well inflated and clear. No consolidation orpulmonary edema. PLEURA: No pneumothorax. No significant pleural effusion. SOFT TISSUES AND BONES: Cervical spinal fixation hardware is noted.[facility] HospitalXR chest 1 view portable / [id number] 15:39:07TECHNIQUE: Frontal view of the chest. INDICATION: CHf. COMPARISON: None. FINDINGS: LINES/TUBES: None. HEART AND MEDIASTINUM: Cardiomediastinal contour is within normallimits. LUNGS: The lungs are well inflated and clear. No consolidation orpulmonary edema. PLEURA: No pneumothorax. No significant pleural effusion. SOFT TISSUES AND BONES: Cervical spinal fixation hardware is noted.Al[facility] Hospital Medical CenterXR CHEST 1 VIEW PORTABLE / [id number] 15:39:07 [facility] 1970 Sex: FTECHNIQUE: Frontal view of the chest.INDICATION: CHf.COMPARISON: None.FINDINGS:LINES/TUBES: None.HE ART AND MEDIASTINUM: Cardiomediastinal contour is within normallimits. LUNGS: The lungs are well inflated and clear. No consolidation orpulmonary edema.PLEURA: No pneumothorax. No significant pleuraleffusion.SOFT TISSUES AND BONES: Cervical spinal fixation hardware is noted.IMPRESSION:No acute card iopulmonary process.Electronically Signed By: Jose Carlos Lebron04/01/2023 15:41 CDTWorkstation Name: [id number] NATRIURETIC FACTOR (BNP)2023-04-01 14:15:07* Test Item Value Reference Range Interpretation Comme nts B-TYPE NATRIURETIC PEPTIDE ( BEAKER) (test code = 700) 192 pg/mL 0-100 H Net Developer Software Engineer C ID - ADMINMR spine cervical without IV [id number] 11:30:35MRI cervical spine without contrast CLINICAL HISTORY: [...] and paraspinal soft tissues are within normal limits.Al[facility]ambra Hospital Medical CenterMR CERVICAL SPINE WITHOUT IV [id number] 11:30:35 [facility] : 1970 Sex: [...] Signed By: Maxim Sultana03/31/2023 11:32 CDTWorkstation Name: [id number] METABOLIC [id number] 04:43:14* Test Item Value Reference Range Interpretation [...] GFR is not applicable for dialysis patients Net Developer Software Engineer C GEOVANNA Yarelis [facility] (HEMOGRAM ONLY)2023-03-31 04:20:07* Test Item Value Reference [...] 0 /100 WBC 0-0 Arterial doppler legs [id number] 17:44:07PV LAB - Lower Extremity Arterial Duplex Demographics Patient Name YUE ROMERO Date of Study [place] Age 53 Visit Number [id number] Gender Female Accession Number [id number] of 1970 Referring Mariah Aldridge, Room Number 2227 Physician Contractor [employer] Yovana Akins Interpreting John Solorio, Physician FellowProcedureType [...] + + + + + + !Prox ROTARY DRIER FEEDER ! !32 ! !Biphasic ! !60.9 ! !Triphasic ! + + + + + + + + + + !Mid ROTARY DRIER FEEDER ! !25.9 ! !Biphasic ! !59.7 ! !Triphasic ! + + + + + + + + + + !Dist ROTARY DRIER FEEDER ! !33.2 ! !Biphasic ! !37.4 ! [...] + + + + + + +[facility] HospitalArterial doppler legs [id number] 17:44:07PV LAB - Lower Extremity Arterial Duplex Demographics Patient Name YUE ROMERO Date of Study 03/30/2023 [place] Age 53 Visit Number [id number] Gender Female Accession Number [id number] of 1970 Referring Mariah Jasen, Room Number 2227 Physician Contractor [employer] Yovana Akins Interpreting John Solorio, Physician FellowProcedureType [...] + + + + + + !Prox ROTARY DRIER FEEDER ! !32 ! !Biphasic ! !60.9 ! !Triphasic ! +-- + + + + + + + + + !Mid ROTARY DRIER FEEDER ! !25.9 ! !Biphasic ! !59.7 ! !Triphasic ! + + + + + + + + + + !Dist ROTARY DRIER FEEDER ! !33.2 ! !Biphasic ! !37.4 ! [...] + + + + + + +[facility] HospitalABI's Only(Ankle/Brachial Index)2023-03-30 17:13:47PV LAB - Lower Extremity Arterial Procedure Demographics Patient Name YUE ROMERO Date of Study 03/30/2023 [place] Age 53 Visit Number [id number] Gender Female Accession Number [id number] Date of 1970 Referring Mariah Jasen, Room Number 2227 Physician Contractor [employer] Yovana Akins Interpreting John Solorio, Physician FellowProcedureType [...] cm/s ; Diameters are measured in [facility]AB[facility](Ankle/Brachial Index)2023-03-30 17:13:47PV LAB - Lower Extremity Arterial Procedure Demographics Patient Name YUE ROMERO Date of Study 03/30/2023 [place] Age 53 Visit Number [id number] Gender Female Accession Number [id number] Date of 1970 Referring Mariah Aldridge, Room Number 2227 Physician Contractor [employer] Yovana Akins Interpreting John Solorio, Physician FellowProcedureType of Study: Extremities Arteries: Lower Extremity Arterial Procedure, ARTERIAL (ALEISHA'S W/DOPPLER) ONLY.Indications for Study:PVD.Patient Status:Routine.Study Location:Vascular Lab.Technical Quality:Adequate visualization.Risk FactorsHistory of Disease+ + + ----+!Diagnosis !Date !Comments !+ + + --------+!History/Risk Factors: !03/30/2023!CHF, CVA, HTN. !+ + + [...] in cm/s ; Diameters are measured in [facility] thoracic spine without IV [id number] 12:50:50MR THORACIC SPINE WITHOUT IV CONTRAST INDICATION: [...] abnormality. T10-11 moderate right neural foraminal stenosis [id number] moderate bilateral foraminal stenosis due to facet hypertrophyand ligamentum flavum redundancy. Thoracic vertebrae maintain normal height. Mild multilevel degenerativedisc changes. No evidence of acute osseous fracture or traumaticmalalignment. No paraspinal mass. Conus medullaris terminates at L1. Redundant cauda equina partiallyimaged and further reported on MRI lumbar spine.[facility] Hospital Medical CenterMR THORACIC SPINE WITHOUT IV [id number] 12:50:50 [facility] : 1970 Sex: [...] abnormality. T10-11 moderate right neural foraminal stenosis [id number] moderate bilateral foraminal stenosis due to facet [...] Signed By: Ryan Buckley03/30/2023 12:52 CDTWorkstation Name: [id number] spine lumbar without IV [id number] 12:33:57MR LUMBAR SPINE WITHOUT IV CONTRAST INDICATION: Unlisted Reason for ExamConcern for cord compression COMPARISON: None TECHNIQUE: Multiplanar, multisequence MR images of the lumbar spinewithout contrast. FINDINGS: For the purposes of this dictation, the 5 lowermost lzwldi-vtfkyouiexfvp-astk vertebral bodies are labeled L1-L5.Alignment of the [...] with mild to moderatebilateral neural foraminal stenosisCHI Frank R. Howard Memorial HospitalMR LUMBAR SPINE WITHOUT IV [id number] 12:33:57 [facility] : 1970 Sex: FMR LUMBAR SPINE WITHOUT IV CONTRASTINDICATION: Unlisted Reason for ExamConcern for cord compressionCOMPARISON: NoneTECHNIQUE: Multiplanar, multisequence MR images of the lumbar spinewithout contrast. FINDINGS: For the purposes of this dictation, the 5 lowermost yswqfi-qdsvyecxqrqea-aqmg vertebralbodies are labeled L1- L5.Alignment of the [...] flavum buckling versus synovial cyst at the iewnyQ08-P26 level (series 301 image eight). MRI thoracic spine can beconsidered for further evaluation.7. Mild clumping of the cauda equina nerve roots, which is nonspecificbut may represent arachnoiditis. Postcontrast imaging can be consideredfor further evaluation.Electronically Signed By: Maxim Sultana03/30/2023 12:36 CDTWorkstation Name: [id number] [id number] 11:45:01* Test Item Value Reference Range Interpretation [...] 5.7- 6.4% indicates increased risk for diabetes (prediabetes)."Net Developer Software Engineer C ID - ADMEEG AWAKE AND NRMBKJ9603-66-02 09:57:53Steph Martinez MD 03/30/2023 9:59 AMELECTROENCEPHALOGRAM FOR [facility]' EEG Type: Inpatient, outpatient, EMUDATE(s) OF EE03/30/23DATE OF REPORT: 03/30/23MRN: [id number] of : 1970EE-1454Start time: 08:36Stop time: 09:23ICD-10: R56.9 CPT Code: 25176 (awake and asleep) HISTORY: 53 y/o female [...] EEG recordings. Steph Elias MD, MPHNeurophysiology/Epilepsy AttendingCHI [facility] Hospital EEG AWAKE AND [id number] 09:57:53Steph Martinez MD 03/30/2023 9:59 AMELECTROENCEPHALOGRAM FOR [facility] EEG Type: Inpatient, outpatient, EMUDATE(s) OF EE03/30/23DATE OF REPORT: 03/30/23MRN: [id number] of : 1970EE-1454Start time: 08:36Stop time: 09:23ICD-10: R56.9 CPT Code: 12231 (awake and asleep)HISTORY: 53 y/o female with [...] EEG recordings. Steph Elias MD, MPHNeurophysiology/Epilepsy AttendingCH[facility] Hospital EEG AWAKE AND [id number] 09:57:53Steph Martinez MD 03/30/2023 9:59 AMELECTROENCEPHALOGRAM FOR [facility] EEG Type: Inpatient, outpatient, EMUDATE(s) OF EE03/30/23DATE OF REPORT: 03/30/23MRN: [id number] of : 1970EE-1454Start time: 08:36Stop time: 09:23ICD-10: R56.9 CPT Code: 73363 (awake and asleep)HISTORY: 53 y/o female with [...] EEG recordings. Steph Elias MD, MPHNeurophysiology/Epilepsy AttendingCH[facility] EEG AWAKE AND [id number] 09:57:53Steph Martinez MD 03/30/2023 9:59 AMELECTROENCEPHALOGRAM FOR [facility] EEG Type: Inpatient, outpatient, EMUDATE(s) OF EE03/30/23DATE OF REPORT: 03/30/23MRN: [id number] of : 1970EE-1454Start time: 08:36Stop time: 09:23ICD-10: R56.9 CPT Code: 42901 (awake and asleep)HISTORY: 53 y/o female with [...] additional EEG recordings. Steph Elias MD, MPHNeurophysiology/Epilepsy AttendingAlhambra Hospital Medical Center VALPROIC ACID LEVEL, [id number] 09:42:31* Test Item Value Reference Range Interpretation Comme nts VALPROIC ACID TOTAL (BEAKER) (test code = 924) 76 ug/mL 50-100 Therapeutic range for some clinical conditions may be >100 ug/mLUrinalysis w/Microscopic + Reflex to Rsquzfw8732-57-28 08:43:51* Test Item Value Reference Range Interpretation Comme nts Color, UA (test code = 5778-6) Yellow Clarity, UA (test code = 5767-9) Clear Specific [place], UA (test code = 5811-5) 1.033 1.001-1.035 pH, UA (test code = 5803-2) 6.0 5.0-8.0 Protein, UA (test code = 68903-5) 30 mg/dL Negative A Glucose, UA (test code = 365) Negative Negative Ketones, UA (test code = 2514-8) Negative Negative Bilirubin, UA (test code = 42153-7) Negative Negative Blood, UA (test code = 04231-1) Small Negative A Nitrite, UA (test code = 5802-4) Negative Negative Leukocytes, UA (test code = 5799-2) Negative Negative Urobilinogen, UA (test code = 08883-0) 0.2 0.2-1.0 RBC, UA (test code = 35499-8) 51 See_Comment [Automated message] The system which [...] Occasional Squam Epithel, UA (test code = 65033-2) See_Comment [Automated message] The system which generated this result transmitted reference range: /HPF. The reference range was not used to interpret this result as normal/abnormal. Specimen Source (test code = 2795) LYNDSAY (test code = LYNDSAY) Net Developer Software Engineer C ID - [auto]Net Developer Software Engineer C ID - tech Lab Interpretation (test code = 70084-1) Abnormal [facility] HospitalURINALYSIS W/ REFLEX URINE [id number] 08:43:51 * Test Item Value Reference Range [...] < /HPF SOURCE(BEAKER) (test code = 2795) Net Developer Software Engineer C ID - [auto]Net Developer Software Engineer C ID - techCOMPREHENSIVE METABOLIC [id number] 04:37:29* Test Item Value Reference Range Interpretation [...] GFR is not applicable for dialysis patients Net Developer Software Engineer C ID - MATT BPT/OHEV5859-76-55 04:30:17* Test Item Value Reference Range Interpretation Comme nts PROTIME (LATOYA) (test code = 759) 13.8 seconds 11.9-14.2 INR (BEAKER) (test code = 370) 1.13 See_Comment [Automated [email or web address]] The system which generated this result transmitted [...] code = 413) 0 /100 WBC 0-0 [id number] 00:00:00Ordered by an unspecified provider.[facility] Medical CenterMAGNESIUM2023-05-25 17:14:06* Test Item Value Reference Range Interpretation Comme nts MAGNESIUM (test code = 7556773099) 1.9 mg/dL 1.7-2.4 Lab Interpretation (test cod e = 41543-9) Normal [facility] HospitalCOMP. METABOLIC PANEL (84130)2022-12-11 15:16:25* Test Item Value Reference Range Interpretation Comme nts NA (test code = 6674416699) 139 mmol/L 135-145 K (test code = 2494443600) 3.5 mmol/L 3.5-5.0 CL (test code = 7129201969) 107 mmol/L 98-108 CO2 TOTAL (test code = 2628314865) 24 mmol/L 23-31 AGAP (test code = 2417866458) 8 2-16 BUN (test code = 3570132747) 9 mg/dL 7-23 GLUCOSE (test code = 6099848752) 129 mg/dL 70-110 H CREATININE (test code = 9413232603) 0.68 mg/dL 0.50-1.04 TOTAL BILI (test code = 6697335532) 0.5 mg/dL 0.1-1.1 CALCIUM (test code = 1927240386) 8.9 mg/dL 8.6-10.6 T PROTEIN (test code = 3354013116) 6.3 g/dL 6.3-8.2 ALBUMIN (test code = 5646977055) 3.8 g/dL 3.5-5.0 ALK PHOS (test code = 1900933489) 87 U/L 34-122 ALTv (test code = 1742-6) 24 U/L 5-35 AST(SGOT) (test code = 0939454831) 21 U/L 13-40 eGFR (test code = 6101440135) 91.6 mL/min/1.73m2 LYNDSAY (test code = LYNDSAY) [...] imaging tests). Lab Interpretation (test code = 03836-4) Abnormal [facility] HospitalTROPONIN [id number] 15:10:45* Test Item Value Reference Range Interpretation Comme nts TROPONIN I (test code = 0841948829) 0.015 ng/mL <=0.034 LYNDSAY (test code = [...] of biotin. Lab Interpretation (test code = 79360-0) Normal [facility] HospitalN-TERMINAL [id number]-[id number] 15:07:48* Test Item Value Reference Range Interpretation Comme nts NT-proBNP (test code = 3382160913) 1460 pg/mL <=125 H LYNDSAY (test code = LYNDSAY) Biotin has been reported to cause a negative bias, interpret results relative to patient's use of biotin. Lab Interpretation (test code = 08129-4) Abnormal [facility] HospitalD-[id number] 14:45:24* Test Item Value Reference Range Interpretation Comments D-DIMER (test code = 6708490402) 0.99 See_Comment H [Automated message] The system [...] a diagnosis. Lab Interpretation (test code = 40111-7) Abnormal [facility] WITH [id number] 14:14:48* Test Item Value Reference Range Interpretation Comme nts WBC (test code = 6690-2) 7.86 See_Comment [Automated [email or web address]] The system which generated this result transmitted reference range: 4.30 - 11.10 10*3/?L. The reference range was not used to interpret this result as normal/abnormal. RBC (test code = 789-8) 5.13 See_Comment [Automated [email or web address]] The system which generated this result transmitted [...] g/dL 31.6-35.1 L RDW-SD (test code = 40857-8) 47.8 fL 39.0-49.9 RDW-CV (test code = 788-0) 16.9 % 12.0-15.5 H PLT (test code = 777-3) 507 See_Comment H [Automated [email or web address]] The system which generated this result transmitted reference range: 166 - 358 10*3/?L. The reference range was not used to interpret this result as normal/abnormal. MPV (test code = 30796-3) 8.2 fL 9.5-12.9 L NRBC/100 WBC (test code = 0550868702) 0.0 See_Comment [Automated me ssage] The system which generated this result transmitted reference range: 0.0 - 10.0 /100 WBCs. The reference range was not used to interpret this result as normal/abnormal. NRBC x10^3 (test code = 2962018975) See_Comment [Automated messa ge] The system which generated this result transmitted reference range: 10*3/?L. The reference range was not used to interpret this result as normal/abnormal. GRAN MAT (NEUT) % (test code = 770-8) 64.5 % IMM GRAN % (test code = 9782595879) 0.30 % LYMPH % (test code = 736-9) 25.6 % MONO % (test code = 5905-5) 7.5 % EOS % (test code = 713-8) 1.0 % BASO % (test code = 706-2) 1.1 % GRAN MAT x10^3(ANC) (test code = 4929679412) 5.07 10*3/uL 1.88-7.09 IMM GRAN x10^3 (test code = 4032735926) 0.00-0.06 LYMPH x10^3 (test code = 731-0) 2.01 10*3/uL 1.32-3.29 MONO x10^3 (test code = 742-7) 0.59 10*3/uL 0.33-0.92 EOS x10^3 (test code = 711-2) 0.08 10*3/uL 0.03-0.39 BASO x10^3 (test code = 704-7) 0.09 10*3/uL 0.01-0.07 H Lab Interpretation (test code = 48695-9) Abnormal [facility] HospitalRPR2023-01-17 13:17:22* Test Item Value Reference Range Interpretation Comme nts RPR SCREEN (BEAKER) (test co de = 420) Nonreactive Nonreactive HEMOGLOBIN [id number] 10:39:49* Test Item Value Reference Range Interpretation Comme nts HEMOGLOBIN A1C ELECTROPHORESIS (BEAKER) (test code = 3811) 5.8 % See_Comment H [Automated me ssage] The system which generated this result transmitted reference range: <=5.6%. The reference range was not used to interpret this result as normal/abnormal. "The A1c is measured using a [facility]-certified method. HbA1c value equal to or greater than 6.5% as the diagnosis cutoff for diabetes. An HbA1c value of 5.7- 6.4% indicates increased risk for diabetes (prediabetes)."Net Developer Software Engineer C ID - ADM VITAMIN [id number] 22:48:27* Test Item Value Reference Range Interpretation Comme nts VITAMIN B12 (BEAKER) (test c ode = 774) 227 pg/mL 213-816 Net Developer Software Engineer C ID - MARCOTSH/FREE T4 IF [id number] 22:08:28* Test Item Value Reference Range Interpretation Comme nts THYROID STIMULATING HORMONE (BEAKER) (test code = 772) 3.309 uIU/mL 0.350-4.940 Net Developer Software Engineer C ID - JSHIV-1 ANTIGEN WITH HIV-1/2 [id number] 22:08:28* Test Item Value Reference Range Interpretation Comme nts HIV-1 ANTIGEN WITH HIV 1\\T\\2 ANTIBODY (2) (BEAKER) (test code = 2586) Nonreactive Nonreactive Net Developer Software Engineer C ID - JSC-REACTIVE [id number] 21:49:44* Test Item Value Reference Range Interpretation Comme nts C-REACTIVE PROTEIN (BEAKER) (test code = 676) 0.35 mg/dL 0.00-0.50 Net Developer Software Engineer C ID - JSCOMPREHENSIVE METABOLIC [id number] 21:49:43* Test Item Value Reference Range Interpretation [...] GFR is not applicable for dialysis patients Net Developer Software Engineer C ID - JSLIPID [id number] 21:49:43* Test Item Value Reference Range Interpretation [...] Borderline 130-159 High 160-189 Very High >=190 Net Developer Software Engineer C ID - JSCBC W/PLT COUNT & AUTO FLUWGSCUTQES6434-40-12 21:34:03* Test Item Value Reference Range Interpretation [...] Interpretation Comme nts Height (test code = 1630884692) in Weight (test code = 5324789069) lbs Systolic BP (test code = 4327326477) mmHg Diastolic BP (test code = 5307464326) mmHg Heart Rate (test code = 3424634227) bpm BSA (test code = 6543212239) 2.00 m2 Ao root diam (test code = 7944475432) 3.20 cm Aortic root (test code = 9690439867) 3.2 cm Ao root annulus (test code = 5624855866) 3.2 cm LVOT diameter (test code = 6106156206) 1.99 cm LVOT area (test code = 3124567381) 3.10 cm2 LVIDD (test code = 6602823476) 5.10 cm Left Ventricular End Diastolic Volume by Teichholz Method (test code = 0025357) 123.0 mL IVS (test code = 5981083610) 1.34 cm Interventricular Septum Diastolic Thickness by 2D (test code = 9253923) 1.34 cm LVPWD (test code = 8300713819) 1.34 cm PW (test code = 2313858352) 1.34 cm 0.6-1.1 EF(Teich) (test code = 8579178173) 41.80 % LVIDS (test code = 1252258130) 4.00 cm Left Ventricular End Systolic Volume by Teichholz Method (test code = 8816800) 71.5 mL FS (test code = 3768572811) 21 % EF - 2D (test code = 45172655) 41.80 % LA size (test code = 7604954321) 4.6 cm Pulmonic Regurgitant End Max Velocity (test code = 4727714385) 119.4 cm/s LAV(MOD-sp4) (test code = 9008603705) 95.00 mL E wave decelartion time (test code = 6385510508) 0.15 s MV stenosis pressure 1/2 time (test code = 4037335840) 45.6 ms MV Peak A Evette (test code = 2813600696) 123.8 cm/s MV Peak E Evette (test code = 3383637510) 109.7 cm/s E/A ratio (test code = 6131286141) ratio MR max PG (test code = 6660030546) 87.20 mm[Hg] MR max evette (test code = 2039309942) 466.90 cm/s Mr max evette (test code = 0788405590) 466.9 m/s MV Prop V (test code = 3826123032) 51.00 cm/s MV E/e' septal (test code = 8351018202) 8.1 cm/s Tapse (test code = 0745775128) 2.21 cm LVOT stroke volume (test code = 5503337743) 49.80 cm3 LVOT peak evette (test code = 4938695756) 89.1 cm/s LVOT mn grad (test code = 9365708855) mmHg AV LVOT peak gradient (test code = 3675451692) mmHg LVOT peak VTI (test code = 5489918096) 16.0 cm LV V1 mean (test code = 8222036747) 64.30 cm/s Aortic valve mean velocity (test code = 4122956776) 133.8 cm/s Ao peak evette (test code = 6587220961) 175.3 cm/s Ao VTI (test code = 4966879820) 32.2 cm AV area by cont VTI (test code = 5518435375) 1.6 cm2 AV area peak evette (test code = 3889438143) 1.6 cm2 Ao max PG (test code = 7156521595) 12.30 mm[Hg] AV peak gradient (test code = 6357813066) mmHg AV valve area (test code = 0984647374) 1.55 cm2 AV mean gradient (test code = 4119360552) mmHg AV regurgitation pressure 1/2 time (test code = 2112666593) 358.5 ms AI dec slope (test code = 9025772432) 364.20 cm/s2 AI max evette (test code = 4902379798) 445.80 cm/s AI max PG (test code = 0648167780) 79.50 mm[Hg] Radiology Study observation (narrative) (test code = 36247-0) LYNDSAY (test code = LYNDSAY) ?Left?Ventricle: Left [...] of Lumason ultrasound enhancing agent used. [facility]PO[facility] (AUTOMATED)2022-08-01 10:43:32* Test Item Value Reference Range Interpretation Comme [facility] POCT GLU (test code = 7556833918) 148 mg/dL 70-110 H Lab Interpretation (test cod e = 53708-6) Abnormal [facility] HospitalACTIVATED PARTIAL THRMPLAS [id number] 18:39:45* Test Item Value Reference Range Interpretation [...] 30 seconds. Lab Interpretation (test code = 93089-6) Normal [facility] HospitalPROTHROMBIN TIME / [id number] 18:37:42* Test Item Value Reference Range Interpretation [...] the indications. Lab Interpretation (test code = 13094-1) Normal [facility] HospitalTROPONIN [id number] 18:32:01* Test Item Value Reference Range Interpretation Comments TROPONIN I (test code = 4271957511) 0.019 ng/mL See_Comment [Automated message] The system [...] of biotin. Lab Interpretation (test code = 00441-5) Normal [facility] HospitalN-TERMINAL [id number] 18:29:01* Test Item Value Reference Range Interpretation Comme nts NT-proBNP (test code = 1318741104) 2770 pg/mL See_Comment H [Automated message] The system which generated this result transmitted reference range: <=125. The reference range was not used to interpret this result as normal/abnormal. LYNDSAY (test code = LYNDSAY) Biotin has been reported to cause a negative bias, interpret results relative to patient's use of biotin. Lab Interpretation (test code = 27402-8) Abnormal [facility] HospitalCOMP. METABOLIC PANEL (69144)2022-07-31 18:21:42* Test Item Value Reference Range Interpretation Comme nts NA (test code = 3066343567) 136 mmol/L 135-145 K (test code = 5905334706) 4.6 mmol/L 3.5-5.0 CL (test code = 2086015693) 104 mmol/L 98-108 CO2 TOTAL (test code = 2647286450) 26 mmol/L 23-31 AGAP (test code = 6905384789) 2-16 BUN (test code = 1105062807) 9 mg/dL 7-23 GLUCOSE (test code = 9448521924) 97 mg/dL 70-110 CREATININE (test code = 7078363431) 0.64 mg/dL 0.50-1.04 TOTAL BILI (test code = 7184803074) 0.5 mg/dL 0.1-1.1 CALCIUM (test code = 7539734150) 8.2 mg/dL 8.6-10.6 L T PROTEIN (test code = 8795001438) 6.5 g/dL 6.3-8.2 ALBUMIN (test code = 5642458275) 3.9 g/dL 3.5-5.0 ALK PHOS (test code = 7348823584) 93 U/L 34-122 ALTv (test code = 1742-6) 18 U/L 5-35 AST(SGOT) (test code = 6590446574) 19 U/L 13-40 eGFR (test code = 0260543258) mL/min/1.73m2 LYNDSAY (test code = LYNDSAY) Association [...] imaging tests). Lab Interpretation (test code = 90705-6) [facility] Test Item Value Reference Range Interpretation Comme nts LIPASE (test code = 9897254691) 54 U/L 0-220 Lab Interpretation (test cod e = 12840-8) Normal [facility] WITH [id number] 18:07:00* Test Item Value Reference Range Interpretation Comme nts WBC (test code = 6690-2) See_Comment [[employer]ver[employer]] The system which generated this result transmitted reference range: 4.30 - 11.10 10*3/?L. The reference range was not used to interpret this result as normal/abnormal. RBC (test code = 789-8) See_Comment [[employer]] The system which generated this result transmitted [...] g/dL 31.6-35.1 L RDW-SD (test code = 92471-5) 53.1 fL 39.0-49.9 H RDW-CV (test code = 788-0) 17.0 % 12.0-15.5 H PLT (test code = 777-3) See_Comment H [Automated messa ge] The system which generated this result transmitted reference range: 166 - 358 10*3/?L. The reference range was not used to interpret this result as normal/abnormal. MPV (test code = 10612-6) 8.2 fL 9.5-12.9 L NRBC/100 WBC (test code = 3181767006) See_Comment [Automated me ssage] The system which generated this result transmitted reference range: 0.0 - 10.0 /100 WBCs. The reference range was not used to interpret this result as normal/abnormal. NRBC x10^3 (test code = 9271064368) See_Comment [Automated messa ge] The system which generated this result transmitted reference range: 10*3/?L. The reference range was not used to interpret this result as normal/abnormal. GRAN MAT (NEUT) % (test code = 770-8) 64.0 % IMM GRAN % (test code = 6396161289) 0.40 % LYMPH % (test code = 736-9) 27.3 % MONO % (test code = 5905-5) 6.5 % EOS % (test code = 713-8) 1.1 % BASO % (test code = 706-2) 0.7 % GRAN MAT x10^3(ANC) (test code = 2351924903) 5.46 10*3/uL 1.88-7.09 IMM GRAN x10^3 (test code = 4459686149) 0.03 10*3/uL 0.00-0.06 LYMPH x10^3 (test code = 731-0) 2.32 10*3/uL 1.32-3.29 MONO x10^3 (test code = 742-7) 0.55 10*3/uL 0.33-0.92 EOS x10^3 (test code = 711-2) 0.09 10*3/uL 0.03-0.39 BASO x10^3 (test code = 704-7) 0.06 10*3/uL 0.01-0.07 Lab Interpretation (test code = 77912-9) Abnormal [facility] METABOLIC PANEL (NA, K, CL, CO2, GLUCOSE, BUN, CREATININE, CA)2022-05-08 06:37:01* Test Item Value Reference Range Interpretation Comme nts NA (test code = 1397370242) 137 mmol/L 135-145 K (test code = 5510338772) 3.8 mmol/L 3.5-5 CL (test code = 6817505753) 103 mmol/L 98-108 CO2 TOTAL (test code = 9462584547) 24 mmol/L 23-31 AGAP (test code = 5875388051) 2-16 BUN (test code = 6395722383) 13 mg/dL 7-23 GLUCOSE (test code = 4418501678) 90 mg/dL 70-110 CREATININE (test code = 5482105294) 0.69 mg/dL 0.5-1.04 CALCIUM (test code = 0291999521) 8.5 mg/dL 8.6-10.6 L eGFR (test code = 9145801352) mL/min/1.73m2 LYNDSAY (test code = LYNDSAY) Association [...] imaging tests). Lab Interpretation (test code = 11400-6) [facility] 06:37:01* Test Item Value Reference Range Interpretation Comme nts MAGNESIUM (test code = 2100449503) 2.1 mg/dL 1.7-2.4 Lab Interpretation (test cod e = 71511-2) Normal [facility]22[facility] 06:37:01* Test Item Value Reference Range Interpretation Comme nts PHOSPHORUS (test code = 8485421880) 4.7 mg/dL 2.5-5 Lab Interpretation (test cod e = 57958-0) Normal [facility] HospitalCB WITH [id number] 06:11:54* Test Item Value Reference Range Interpretation Comme nts WBC (test code = 6690-2) See_Comment [Automated [employer]] The system which generated this result transmitted reference range: 4.30 - 11.10 10*3/?L. The reference range was not used to interpret this result as normal/abnormal. RBC (test code = 789-8) See_Comment [Automated [employer] ge] The system which generated this result [...] 32.4 g/dL 31.6-35.1 RDW-SD (test code = 13563-9) 51.0 fL 39-49.9 H RDW-CV (test code = 788-0) 16.5 % 12-15.5 H PLT (test code = 777-3) See_Comment H [Automated messa ge] The system which generated this result transmitted reference range: 166 - 358 10*3/?L. The reference range was not used to interpret this result as normal/abnormal. MPV (test code = 15591-7) 8.3 fL 9.5-12.9 L NRBC/100 WBC (test code = 9617594291) See_Comment [Automated me ssage] The system which generated this result transmitted reference range: 0.0 - 10.0 /100 WBCs. The reference range was not used to interpret this result as normal/abnormal. NRBC x10^3 (test code = 6387937352) See_Comment [Automated messa ge] The system which generated this result transmitted reference range: 10*3/?L. The reference range was not used to interpret this result as normal/abnormal. GRAN MAT (NEUT) % (test code = 770-8) 64.5 % IMM GRAN % (test code = 3486829558) 0.50 % LYMPH % (test code = 736-9) 27.1 % MONO % (test code = 5905-5) 6.6 % EOS % (test code = 713-8) 0.6 % BASO % (test code = 706-2) 0.7 % GRAN MAT x10^3(ANC) (test code = 0082662182) 5.28 10*3/uL 1.88-7.09 IMM GRAN x10^3 (test code = 2444992043) 0.04 10*3/uL 0-0.06 LYMPH x10^3 (test code = 731-0) 2.22 10*3/uL 1.32-3.29 MONO x10^3 (test code = 742-7) 0.54 10*3/uL 0.33-0.92 EOS x10^3 (test code = 711-2) 0.05 10*3/uL 0.03-0.39 BASO x10^3 (test code = 704-7) 0.06 10*3/uL 0.01-0.07 Lab Interpretation (test code = 47964-9) Abnormal [facility] GLUCOSE (AUTOMATED)2022-05-07 01:18:10* Test Item Value Reference Range Interpretation Comme [facility] POCT GLU (test code = 9336871147) 120 mg/dL 70-110 H Lab Interpretation (test cod e = 99555-2) Abnormal [facility] Screen - ONCE [id number] 05:46:35* Test Item Value Reference Range Interpretation Comme [facility] ABO & RH (test code = 20) O POSITIVE Performed at [facility] Laboratory Services - [facility] Blood [address] Free: [phone] No. [id number] IAT (test code = 1185) Negative Performed at [facility] Laboratory Services [address] Free: [phone] No. [id number] [facility]BAS[facility]OLIC PANEL (NA, K, CL, CO2, GLUCOSE, BUN, CREATININE, CA)2022-05-05 08:22:57* Test Item Value Reference Range Interpretation Comme [facility] NA (test code = 0753716478) 136 mmol/L 135-145 K (test code = 6007078712) 4.9 mmol/L 3.5-5 CL (test code = 4102566968) 108 mmol/L 98-108 CO2 TOTAL (test code = 5888403819) 22 mmol/L 23-31 L AGAP (test code = 5326900153) 2-16 BUN (test code = 2657255520) 12 mg/dL 7-23 GLUCOSE (test code = 8474148703) 155 mg/dL 70-110 H CREATININE (test code = 2014435614) 0.63 mg/dL 0.5-1.04 CALCIUM (test code = 4624433617) 8.4 mg/dL 8.6-10.6 L eGFR (test code = 6127676128) mL/min/1.73m2 LYNDSAY (test code = LYNDSAY) Association [...] imaging tests). Lab Interpretation (test code = 10501-7) Abnormal [facility] HospitalPROTHROMBIN TIME / [id number] 08:22:37* Test Item Value Reference Range Interpretation Comme [facility] PROTIME PATIENT (test code = 5964-2) See_Comment [Guvera] The system which generated this result transmitted reference range: 10.1 - 12.6 Seconds. The reference range was not used to interpret this result as normal/abnormal. INR (test code = 6301-6) Normal INR <1.1; Warfarin Therapeutic range 2.0 to 3.0 or 2.5 to 3.5, depending upon the indications. Lab Interpretation (test code = 75477-6) Normal [facility] HospitalaPTT2022-[facility]-17 08:22:37* Test Item Value Reference Range Interpretation Comme [facility] APTT Patient (test code = 3173-2) See_Comment [Guvera] The system which generated this result transmitted reference range: 26 - 36 Seconds. The reference range was not used to interpret this result as normal/abnormal. Lab Interpretation (test code = 18758-6) Normal [facility] HospitalFIBRINOGEN2022-10-17 08:22:37* Test Item Value Reference Range Interpretation Comme nts Fibrinogen (test code = 5059010079) 294 mg/dL 167-453 Lab Interpretation (test cod e = 86314-6) Normal [facility] WITH [id number] 08:15:01* Test Item Value Reference Range Interpretation [...] g/dL 31.6-35.1 L RDW-SD (test code = 91143-5) 52.9 fL 39-49.9 H RDW-CV (test code = 788-0) 16.8 % 12-15.5 H PLT (test code = 777-3) See_Comment H [Automated messa ge] The system which generated this result transmitted reference range: 166 - 358 10*3/?L. The reference range was not used to interpret this result as normal/abnormal. MPV (test code = 57577-7) 8.3 fL 9.5-12.9 L NRBC/100 WBC (test code = 5418172113) See_Comment [Automated [employer] ssage] The system which generated this result transmitted reference range: 0.0 - 10.0 /100 WBCs. The reference range was not used to interpret this result as normal/abnormal. NRBC x10^3 (test code = 7225429331) See_Comment [Automated messa ge] The system which generated this result transmitted reference range: 10*3/?L. The reference range was not used to interpret this result as normal/abnormal. GRAN MAT (NEUT) % (test code = 770-8) 86.4 % IMM GRAN % (test code = 9691379020) 0.40 % LYMPH % (test code = 736-9) 11.7 % MONO % (test code = 5905-5) 1.1 % EOS % (test code = 713-8) 0.0 % BASO % (test code = 706-2) 0.4 % GRAN MAT x10^3(ANC) (test code = 7951197468) 6.36 10*3/uL 1.88-7.09 IMM GRAN x10^3 (test code = 1487209467) 0.03 10*3/uL 0-0.06 LYMPH x10^3 (test code = 731-0) 0.86 10*3/uL 1.32-3.29 L MONO x10^3 (test code = 742-7) 0.08 10*3/uL 0.33-0.92 L EOS x10^3 (test code = 711-2) 0.03-0.39 L BASO x10^3 (test code = 704-7) 0.03 10*3/uL 0.01-0.07 Lab Interpretation (test code = 98258-9) Abnormal [facility] HospitalVITAMIN D, [id number] 20:14:03* Test Item Value Reference Range Interpretation Comme [facility] VIT D 25OH (test code = 29833-7) 22 ng/mL 25-80 L LYNDSAY (test code = LYNDSAY) Deficiency: <20 ng/mLInsufficiency: 20-24 ng/mLOptimal: 25-80 ng/mL Lab Interpretation (test code = 94582-8) Abnormal [facility] HospitalBASI METABOLIC PANEL (NA, K, CL, CO2, GLUCOSE, BUN, CREATININE, CA)2022-04-15 11:27:57* Test Item Value Reference Range Interpretation Comme nts NA (test code = 5421435165) 138 mmol/L 135-145 K (test code = 3653894146) 3.9 mmol/L 3.5-5 CL (test code = 0167452968) 106 mmol/L 98-108 CO2 TOTAL (test code = 5771299895) 23 mmol/L 23-31 AGAP (test code = 1000442430) 2-16 BUN (test code = 4580111224) 10 mg/dL 7-23 GLUCOSE (test code = 6281051008) 91 mg/dL 70-110 CREATININE (test code = 2706484493) 0.65 mg/dL 0.5-1.04 CALCIUM (test code = 0520467460) 8.1 mg/dL 8.6-10.6 L eGFR (test code = 6317345960) mL/min/1.73m2 LYNDSAY (test code = LYNDSAY) Association [...] imaging tests). Lab Interpretation (test code = 66145-1) Abnormal [facility]STR[facility] Protocol - Transthoracic echo (TTE) 2022-04-14 22:07:33* Test Item Value Reference Range Interpretation Comme nts Height (test code = 3409042194) in Weight (test code = 5713355369) lbs Systolic BP (test code = 0846539982) mmHg Diastolic BP (test code = 5137791855) mmHg Heart Rate (test code = 7278672301) bpm BSA (test code = 7820507514) 1.94 m2 TASV (test code = 2368655292) 15.5 cm/s LVIDD (test code = 6813107484) 6.00 cm Left Ventricular End Diastolic Volume by Teichholz Method (test code = 4760376) 183.0 mL IVS (test code = 4805641787) 1.09 cm Interventricular Septum Diastolic Thickness by 2D (test code = 7889689) 1.09 cm LVPWD (test code = 8686750306) 0.94 cm PW (test code = 1456953467) 0.94 cm 0.6-1.1 EF(Teich) (test code = 3208117687) 40.30 % LVIDS (test code = 1122107336) 4.80 cm Left Ventricular End Systolic Volume by Teichholz Method (test code = 1153267) 109.2 mL FS (test code = 5554508726) 20 % EF - 2D (test code = 08077156) 40.30 % LVOT diameter (test code = 6376655047) 2.05 cm LVOT area (test code = 2346929910) 3.30 cm2 Ao root diam (test code = 5493660869) 3.10 cm Aortic root (test code = 2671919707) 3.1 cm Ao root annulus (test code = 4833351655) 3.1 cm LA size (test code = 1798231290) 4.2 cm LAV(MOD-sp4) (test code = 2484801786) 64.90 mL MV Peak A Evette (test code = 6657540365) 115.7 cm/s E wave decelartion time (test code = 7740281513) 0.15 s MV Peak E Evette (test code = 0607858505) 106.2 cm/s E/A ratio (test code = 7393246265) ratio LVOT stroke volume (test code = 2876152918) 48.30 cm3 LVOT peak evette (test code = 9079767643) 78.4 cm/s LVOT mn grad (test code = 5877066047) mmHg AV LVOT peak gradient (test code = 6310926490) mmHg LVOT peak VTI (test code = 2536742362) 14.7 cm LV V1 mean (test code = 2025558173) 51.40 cm/s Ao peak evette (test code = 0356629600) 154.7 cm/s AV area peak evette (test code = 7939569155) 1.7 cm2 Ao max PG (test code = 0582423359) 9.60 mm[Hg] AV peak gradient (test code = 9035441134) mmHg AV regurgitation pressure 1/2 time (test code = 4059070950) 257.3 ms AI dec slope (test code = 9713115921) 498.10 cm/s2 AI max evette (test code = 1770444674) 437.60 cm/s AI max PG (test code = 3802605685) 77.80 mm[Hg] Tapse (test code = 7502314711) 2.19 cm LA Volume Index (BP) (test code = 8555222499) 32.0 mL/m2 LA volume (BP) (test code = 7188619480) 62.1 mL LAV(MOD-sp2) (test code = 7585826458) 52.70 mL A4C EF (test code = 7445246516) 44.80 % EF(sp4-el) (test code = 5756658824) 45.20 % SV(MOD-sp4) (test code = 5481515977) 71.20 mL SV(sp4-el) (test code = 0651762487) 73.90 mL LV Diastolic Volume (BP) (test code = 5133826397) 146.3 mL A2C EF (test code = 2302563348) 52.00 % EF(MOD-bp) (test code = 5731990928) 46.70 % EF(sp2-el) (test code = 4112950109) 52.40 % LV Systolic Volume (BP) (test code = 4834658203) 77.9 mL SV(MOD-bp) (test code = 7569709867) 68.40 mL SV(MOD-sp2) (test code = 0355221433) 69.20 mL EF (test code = 8076502441) Left Ventricular Stroke Volume by 2-D Biplane-MOD (test code = 3402276) 68.4 mL Radiology Study observation (narrative) (test code = 08128-1) LYNDSAY (test code = LYNDSAY) ?Left?Ventricle: Left [...] agent used and saline contrast was performed. [facility]22-[facility]14 16:48:36* Test Item Value Reference Range Interpretation Comme nts KEPPRA (test code = 2770147493) 12-46 L LYNDSAY (test code = LYNDSAY) Therapeutic range: 12-46 ?g/mL ? ?Toxic: Not well established.Test developed and characteristics determined by [facility] Laboratory Services. Lab Interpretation (test code = 03995-2) Abnormal [facility] Metabolic Panel (Na, K, Cl, CO2, Glucose, BUN, Creatinine, Ca)2022-04-14 10:50:11* Test Item Value Reference Range Interpretation Comme nts NA (test code = 5502759131) 136 mmol/L 135-145 K (test code = 7442807418) 3.8 mmol/L 3.5-5 CL (test code = 9559835950) 105 mmol/L 98-108 CO2 TOTAL (test code = 8053094196) 25 mmol/L 23-31 AGAP (test code = 8220924553) 2-16 BUN (test code = 4744913762) 9 mg/dL 7-23 GLUCOSE (test code = 6167689856) 101 mg/dL 70-110 CREATININE (test code = 9148365001) 0.66 mg/dL 0.5-1.04 CALCIUM (test code = 4787802767) 8.1 mg/dL 8.6-10.6 L eGFR (test code = 9805206797) mL/min/1.73m2 LYNDSAY (test code = LYNDSAY) Association [...] imaging tests). Lab Interpretation (test code = 22091-0) Abnormal [facility] HospitalMagensium, [id number] 10:50:11* Test Item Value Reference Range Interpretation Comme nts MAGNESIUM (test code = 0044725687) 1.9 mg/dL 1.7-2.4 Lab Interpretation (test cod e = 44003-5) Normal [facility] HospitalThyroid Stimulating Oeeokxi5583-33-80 22:21:44 * Test Item Value Reference Range Interpretation Comme nts TSH (test code = 4514022891) See_Comment Biotin has been reported to cause a negative bias, interpret results relative to patient's use of biotin. [Automated message] The system which generated this result transmitted reference range: 0.45 - 4.70 mIU/L. The reference range was not used to interpret this result as normal/abnormal. Lab Interpretation (test code = 90804-4) Normal [facility] HospitalGLYCOSYLATED HEMOGLOBIN (A1C)2022-04-13 21:53:43* Test Item Value Reference Range Interpretation Comme nts HGB A1C (test code = 4548-4) 5.8 % 4-5.7 H LYNDSAY (test code = LYNDSAY) Reference RangesNormal: <5.7%Prediabetes: 5.7 - 6.4%Diabetes: > 6.5% Lab Interpretation (test code = 08169-5) Abnormal [facility] HospitalFASTING LIPID PANEL (03910)(TOTAL CHOLESTEROL, TRIGLYCERIDES, HDL)2022-04-13 21:34:53* Test Item Value Reference Range Interpretation Comme nts CHOL (test code = 9605870118) 201 mg/dL 120-200 H HDL (test code = 8765888695) 56 mg/dL See_Comment [Automated [employer] ge] The system which generated this result transmitted reference range: >=50. The reference range was not used to interpret this result as normal/abnormal. HDLC RATIO (test code = 8405134799) See_Comment [Automated [employer]] The system which generated this result transmitted reference range: <=4.5. The reference range was not used to interpret this result as normal/abnormal. TRIG (test code = 0752791936) 355 mg/dL 30-170 H LDL CHOL (test code = 77841-8) 74 mg/dL See_Comment [Automated [employer]] The system which generated this result transmitted reference range: <=160. The reference range was not used to interpret this result as normal/abnormal. VLDL (test code = 0334742643) 71 mg/dL 5-60 H Lab Interpretation (test code = 27945-4) [facility] Code Rkueio1842-00-66 18:46:27* Test Item Value Reference Range Interpretation Comments TROPONIN I (test code = 7959073287) 0.013 ng/mL See_Comment [Automated message] The system [...] of biotin. Lab Interpretation (test code = 19209-5) Normal [facility] (NA, K, CL, CO2, Glucose, BUN, Creatinine, CA) - Code Ekmhma0216-35-10 18:35:07* Test Item Value Reference Range Interpretation Comme nts NA (test code = 1272098428) 136 mmol/L 135-145 K (test code = 3191424713) 4.3 mmol/L 3.5-5 CL (test code = 5593190931) 105 mmol/L 98-108 CO2 TOTAL (test code = 8159207708) 27 mmol/L 23-31 AGAP (test code = 1053505720) 2-16 BUN (test code = 7282387262) 8 mg/dL 7-23 GLUCOSE (test code = 5701774414) 130 mg/dL 70-110 H CREATININE (test code = 1595396314) 0.75 mg/dL 0.5-1.04 CALCIUM (test code = 5459703288) 8.5 mg/dL 8.6-10.6 L eGFR (test code = 5987968837) mL/min/1.73m2 LYNDSAY (test code = LYNDSAY) Association [...] imaging tests). Lab Interpretation (test code = 88446-4) Abnormal [facility] HospitalaPTT - Code Nypume3130-41-31 18:32:46* Test Item Value Reference Range Interpretation [...] 30 seconds. Lab Interpretation (test code = 00766-6) Normal [facility] HospitalProthrombin Time / INR - Code Urmxya2780-78-81 18:30:45* Test Item Value Reference Range Interpretation [...] the indications. Lab Interpretation (test code = 35142-3) Normal [facility] HospitalCBC without Diff - Code Ubkxef2948-37-57 18:23:07* Test Item Value Reference Range Interpretation [...] result as normal/abnormal. MPV (test code = 43100-8) 8.1 fL 9.5-12.9 L RDW-CV (test code = 788-0) 16.1 % 12-15.5 H RDW-SD (test code = 56767-3) 49.2 fL 39-49.9 NRBC x10^3 (test code = 4637210823) See_Comment [Automated [email or web address]] The system which generated this result transmitted reference range: 10*3/?L. The reference range was not used to interpret this result as normal/abnormal. NRBC/100 WBC (test code = 2285439447) See_Comment [Automated [employer]] The system which generated this result transmitted reference range: 0.0 - 10.0 /100 WBCs. The reference range was not used to interpret this result as normal/abnormal. IPF % (test code = 2418113765) Lab Interpretation (test code = 77316-6) Abnormal [facility] HospitalTROPONIN [id number] 21:06:40* Test Item Value Reference Range Interpretation Comments TROPONIN I (test code = 7580154252) 0.005 ng/mL See_Comment [Automated message] The system [...] of biotin. Lab Interpretation (test code = 92641-1) Normal [facility] HospitalCOM. METABOLIC PANEL (13941)2021-11-23 20:55:42* Test Item Value Reference Range Interpretation Comme nts NA (test code = 8844004275) 137 mmol/L 135-145 K (test code = 5259432982) 4.3 mmol/L 3.5-5.0 CL (test code = 9238097380) 104 mmol/L 98-108 CO2 TOTAL (test code = 8782133974) 22 mmol/L 23-31 L AGAP (test code = 3675087377) 2-16 BUN (test code = 3734868988) 15 mg/dL 7-23 GLUCOSE (test code = 5613918898) 114 mg/dL 70-110 H CREATININE (test code = 5610706409) 0.68 mg/dL 0.50-1.04 TOTAL BILI (test code = 9089682082) 0.5 mg/dL 0.1-1.1 CALCIUM (test code = 2576550687) 9.1 mg/dL 8.6-10.6 T PROTEIN (test code = 4404977183) 7.3 g/dL 6.3-8.2 ALBUMIN (test code = 2857817825) 4.4 g/dL 3.5-5.0 ALK PHOS (test code = 0006889040) 243 U/L 34-122 H ALTv (test code = 1742-6) 24 U/L 5-35 AST(SGOT) (test code = 4683690965) 30 U/L 13-40 eGFR (test code = 5579526041) mL/min/1.73m2 LYNDSAY (test code = LYNDSAY) Association [...] imaging tests). Lab Interpretation (test code = 66010-1) Abnormal [facility] HospitalLIPASE2022-[facility]-07 20:55:22* Test Item Value Reference Range Interpretation Comme nts LIPASE (test code = 1633855006) 96 U/L 0-220 Lab Interpretation (test cod e = 07033-9) Normal [facility] HospitalPOCT [id number] 20:46:00* Test Item Value Reference Range Interpretation Comme nts POCT PREG (test code = 1605) negative On board controls acceptable with C Line (test code = 3574) present POCT PREG LOT # (test code = 3575) [id number] POCT PREG TEST DATE ( test code = 3576) 04/18/2023 Lab Interpretation (test cod e = 86287-4) Normal [facility] HospitalCBC WITH [id number] 20:40:38* Test Item Value Reference Range Interpretation Comme nts WBC (test code = 6690-2) See_Comment [Automated [employer]] The system which generated this result transmitted reference range: 4.30 - 11.10 10*3/?L. The reference range was not used to interpret this result as normal/abnormal. RBC (test code = 789-8) See_Comment [Automated [email or web address]] The system which generated this result transmitted [...] 31.8 g/dL 31.6-35.1 RDW-SD (test code = 45984-2) 53.7 fL 39.0-49.9 H RDW-CV (test code = 788-0) 17.2 % 12.0-15.5 H PLT (test code = 777-3) See_Comment H [Automated messa ge] The system which generated this result transmitted reference range: 166 - 358 10*3/?L. The reference range was not used to interpret this result as normal/abnormal. MPV (test code = 49948-2) 8.5 fL 9.5-12.9 L NRBC/100 WBC (test code = 3149585837) See_Comment [Automated [employer] ssage] The system which generated this result transmitted reference range: 0.0 - 10.0 /100 WBCs. The reference range was not used to interpret this result as normal/abnormal. NRBC x10^3 (test code = 0759082164) <0.01 See_Comment [Automated messa ge] The system which generated this result transmitted reference range: 10*3/?L. The reference range was not used to interpret this result as normal/abnormal. GRAN MAT (NEUT) % (test code = 770-8) 53.7 % IMM GRAN % (test code = [id number]) 0.90 % LYMPH % (test code = 736-9) 32.6 % MONO % (test code = 5905-5) 10.1 % EOS % (test code = 713-8) 1.5 % BASO % (test code = 706-2) 1.2 % GRAN MAT x10^3(ANC) (test code = [id number]) 4.98 10*3/uL 1.88-7.09 IMM GRAN x10^3 (test code = [id number]) 0.08 10*3/uL 0.00-0.06 H LYMPH x10^3 (test code = 731-0) 3.02 10*3/uL 1.32-3.29 MONO x10^3 (test code = 742-7) 0.94 10*3/uL 0.33-0.92 H EOS x10^3 (test code = 711-2) 0.14 10*3/uL 0.03-0.39 BASO x10^3 (test code = 704-7) 0.11 10*3/uL 0.01-0.07 H Lab Interpretation (test code = 52506-1) [facility] 20:17:33* Test Item Value Reference Range Interpretation Comme [facility] POCT GLU (test code = [id number]) 111 mg/dL 70-110 H Notified Provide r Lab Interpretation (test code = 77136-5) [facility]PREP, [id number] 00:00:00 * Test Item Value Reference Range Interpretation Comme nts SOURCE: (test code = 8001) Endocervical SLIDES: (test code = 8011) 1 LMP: (test code = 8021) 06/03/2021 SPECIMEN ADEQUACY: (test code = 74089) (NOTE) INTERPRETATION: (test code = 68132) ASCUS/EPITH. ABNORMALITY; SEE BELOW HYDROELECTRIC MACHINERY MECHANIC HELPER: (test code = 8101) CHANA Thacker(ASC)[facility] PATHOLOGIST INTERPRETATION BY: (test code = 8122) Nahid Russell M.D. LOCATION: (test code = 63964) (NOTE) CPT: (test code = 8140) (NOTE) PAP TEST, THINPREP, [id number] 00:00:00* Test Item Value Reference Range Interpretation Comme nts SOURCE: (test code = 8001) Endocervical SLIDES: (test code = 8011) 1 LMP: (test code = 8021) 06/03/2021 SPECIMEN ADEQUACY: (test code = 56704) (NOTE) INTERPRETATION: (test code = 55296) ASCUS/EPITH. ABNORMALITY; SEE BELOW HYDROELECTRIC MACHINERY MECHANIC HELPER: (test code = 8101) CHANA Thacker(ASC)[facility] PATHOLOGIST INTERPRETATION BY: (test code = 8122) Nahid Russell M.D. LOCATION: (test code = 13069) (NOTE) CPT: (test code = 8140) (NOTE) HPV HIGH RISK WITH GENOTYPE, [id number] 00:00:00* Test Item Value Reference Range Interpretation Comme nts HPV HIGH RISK INTERP (test c ode = 82904) POSITIVE HPV 16 (test code = 35627) POSITIVE HPV 18 (test code = 22955) NEGATIVE HPV, HR, OTHER GENOTYPES (te st code = 08151) POSITIVE HPV HIGH RISK WITH GENOTYPE, [id number] 00:00:00* Test Item Value Reference Range Interpretation Comme nts HPV HIGH RISK INTERP (test c ode = 27023) POSITIVE HPV 16 (test code = 05734) POSITIVE HPV 18 (test code = 22582) NEGATIVE HPV, HR, OTHER GENOTYPES (te st code = 88226) POSITIVE [id number] 03:22:48* Test Item Value Reference Range Interpretation Comme nts APPEARANCE (test code = 6666472022) Hazy Clear A COLOR (test code = 4404909696) Yellow Yellow PH (test code = 8566290734) 4.8-8.0 SP GRAVITY (test code = 5306378933) 1.003-1.030 GLU U QUAL (test code = 0169667417) Normal Normal BLOOD (test code = 0227206763) Negative Negative Interference fro m ascorbic acid may cause false negative results. KETONES (test code = 2796105418) 5 mg/dL Negative A PROTEIN (test code = 2887-8) Negative Negative UROBILIN (test code = 3097538307) 4.0 mg/dL Normal A BILIRUBIN (test code = 3177933303) Negative Negative NITRITE (test code = 7117252898) Negative Negative LEUK GRUPO (test code = 2673475936) Negative Negative RBC/HPF (test code = 5624290091) See_Comment [Automated [employer] ge] The system which generated this result transmitted reference range: 0 - 3 HPF. The reference range was not used to interpret this result as normal/abnormal. WBC/HPF (test code = 3511412622) <1 See_Comment [Automated [employer] ge] The system which generated this result transmitted reference range: 0 - 5 HPF. The reference range was not used to interpret this result as normal/abnormal. BACTERIA (test code = 0449749279) Few Negative A SQ EPITH (test code = 4500509528) HPF Lab Interpretation (test code = 38606-0) [facility] 03:22:48* Test Item Value Reference Range Interpretation Comme nts APPEARANCE (test code = 9406334141) Hazy Clear A COLOR (test code = 2041663377) Yellow Yellow PH (test code = 4835999483) 4.8-8.0 SP GRAVITY (test code = 5228761554) 1.003-1.030 GLU U QUAL (test code = 9913739187) Normal Normal BLOOD (test code = 7680937777) Negative Negative KETONES (test code = 1875521370) 5 mg/dL Negative A PROTEIN (test code = 2887-8) Negative Negative UROBILIN (test code = 6207835988) 4.0 mg/dL Normal A BILIRUBIN (test code = 7420336314) Negative Negative NITRITE (test code = 4501242976) Negative Negative LEUK GRUPO (test code = 5066924238) Negative Negative RBC/HPF (test code = 9536039276) See_Comment [Automated [employer]] The system which generated this result transmitted reference range: 0 - 3 HPF. The reference range was not used to interpret this result as normal/abnormal. WBC/HPF (test code = 3660625896) <1 See_Comment [[employer]] The system which generated this result transmitted reference range: 0 - 5 HPF. The reference range was not used to interpret this result as normal/abnormal. BACTERIA (test code = 1424747801) Few Negative A SQ EPITH (test code = 5332102873) HPF Lab Interpretation (test code = 05117-2) Abnormal [facility] [id number] 02:45:00* Test Item Value Reference Range Interpretation Comments TROPONIN I (test code = 4139737129) 0.002 ng/mL See_Comment [Automated message] The system [...] of biotin. Lab Interpretation (test code = 55660-9) Normal [facility] [id number] 02:45:00* Test Item Value Reference Range Interpretation Comme nts TROPONIN I (test code = 5866924169) 0.002 ng/mL See_Comment [Automated [employer]] The system which generated this result transmitted reference range: <=0.034. The reference range was not used to interpret this result as normal/abnormal. LYNDSAY (test code = LYNDSAY) Lab Interpretation (test code = 82465-5) Normal [facility]AL [id number] 02:41:57* Test Item Value Reference Range Interpretation Comme nts NT-proBNP (test code = 6831039809) 169 pg/mL See_Comment H [Automated message] The system which generated this result transmitted reference range: <=125. The reference range was not used to interpret this result as normal/abnormal. LYNDSAY (test code = LYNDSAY) Biotin has been reported to cause a negative bias, interpret results relative to patient's use of biotin. Lab Interpretation (test code = 10830-0) Abnormal [facility] [id number] 02:41:57* Test Item Value Reference Range Interpretation Comme nts NT-proBNP (test code = 8404189678) 169 pg/mL See_Comment H [Automated [employer]] The system which generated this result transmitted reference range: <=125. The reference range was not used to interpret this result as normal/abnormal. LYNDSAY (test code = LYNDSAY) Lab Interpretation (test code = 14491-4) Abnormal [facility]. METABOLIC PANEL (61173)2021-03-17 02:09:13* Test Item Value Reference Range Interpretation Comme nts NA (test code = 0486043108) 137 mmol/L 135-145 K (test code = 8205470549) 4.2 mmol/L 3.5-5.0 CL (test code = 0136539390) 102 mmol/L 98-108 CO2 TOTAL (test code = 6095889709) 25 mmol/L 23-31 AGAP (test code = 1346974683) 2-16 BUN (test code = 1120589309) 18 mg/dL 7-23 GLUCOSE (test code = 3124780676) 144 mg/dL 70-110 H CREATININE (test code = 2025704218) 0.77 mg/dL 0.50-1.04 TOTAL BILI (test code = 6805971318) 0.4 mg/dL 0.1-1.1 CALCIUM (test code = 4595825536) 8.9 mg/dL 8.6-10.6 T PROTEIN (test code = 1271222239) 6.8 g/dL 6.3-8.2 ALBUMIN (test code = 7970586684) 3.9 g/dL 3.5-5.0 ALK PHOS (test code = 6592197717) 84 U/L 34-122 ALTv (test code = 1742-6) 13 U/L 5-35 AST(SGOT) (test code = 7559872005) 17 U/L 13-40 eGFR (test code = 2954792275) mL/min/1.73m2 LYNDSAY (test code = LYNDSAY) Association [...] imaging tests). Lab Interpretation (test code = 00229-3) Abnormal [facility]. METABOLIC PANEL (15011)2021-03-17 02:09:13* Test Item Value Reference Range Interpretation Comme nts NA (test code = 6491334217) 137 mmol/L 135-145 K (test code = 8954232132) 4.2 mmol/L 3.5-5.0 CL (test code = 5162240654) 102 mmol/L 98-108 CO2 TOTAL (test code = 5843815812) 25 mmol/L 23-31 AGAP (test code = 5682887320) 2-16 BUN (test code = 7631754836) 18 mg/dL 7-23 GLUCOSE (test code = 5133442717) 144 mg/dL 70-110 H CREATININE (test code = 4248557297) 0.77 mg/dL 0.50-1.04 TOTAL BILI (test code = 1225133837) 0.4 mg/dL 0.1-1.1 CALCIUM (test code = 6668113933) 8.9 mg/dL 8.6-10.6 T PROTEIN (test code = 2395376597) 6.8 g/dL 6.3-8.2 ALBUMIN (test code = 3004060985) 3.9 g/dL 3.5-5.0 ALK PHOS (test code = 4952745190) 84 U/L 34-122 ALTv (test code = 1742-6) 13 U/L 5-35 AST(SGOT) (test code = 4422744555) 17 U/L 13-40 eGFR (test code = 5504358090) mL/min/1.73m2 LYNDSAY (test code = LYNDSAY) Lab Interpretation (test cod e = 57083-7) Abnormal [facility] WITH [id number] 01:56:33* Test Item Value Reference Range Interpretation [...] g/dL 31.6-35.1 L RDW-SD (test code = 31883-3) 55.5 fL 39.0-49.9 H RDW-CV (test code = 788-0) 18.9 % 12.0-15.5 H PLT (test code = 777-3) See_Comment H [Automated messa ge] The system which generated this result transmitted reference range: 166 - 358 10*3/?L. The reference range was not used to interpret this result as normal/abnormal. MPV (test code = 98379-0) 8.2 fL 9.5-12.9 L NRBC/100 WBC (test code = 7403716491) See_Comment [Automated [employer] ssage] The system which generated this result transmitted reference range: 0.0 - 10.0 /100 WBCs. The reference range was not used to interpret this result as normal/abnormal. NRBC x10^3 (test code = 8927784322) <0.01 See_Comment [Automated messa ge] The system which generated this result transmitted reference range: 10*3/?L. The reference range was not used to interpret this result as normal/abnormal. GRAN MAT (NEUT) % (test code = 770-8) 61.7 % IMM GRAN % (test code = 6935613349) 0.80 % LYMPH % (test code = 736-9) 28.5 % MONO % (test code = 5905-5) 6.3 % EOS % (test code = 713-8) 1.8 % BASO % (test code = 706-2) 0.9 % GRAN MAT x10^3(ANC) (test code = 6143519577) 7.31 10*3/uL 1.88-7.09 H IMM GRAN x10^3 (test code = 3785550929) 0.09 10*3/uL 0.00-0.06 H LYMPH x10^3 (test code = 731-0) 3.38 10*3/uL 1.32-3.29 H MONO x10^3 (test code = 742-7) 0.75 10*3/uL 0.33-0.92 EOS x10^3 (test code = 711-2) 0.21 10*3/uL 0.03-0.39 BASO x10^3 (test code = 704-7) 0.11 10*3/uL 0.01-0.07 H Lab Interpretation (test code = 08379-8) Abnormal [facility] WITH [id number] 01:56:33* Test Item Value Reference Range Interpretation [...] g/dL 31.6-35.1 L RDW-SD (test code = 29077-3) 55.5 fL 39.0-49.9 H RDW-CV (test code = 788-0) 18.9 % 12.0-15.5 H PLT (test code = 777-3) See_Comment H [Automated messa ge] The system which generated this result transmitted reference range: 166 - 358 10*3/?L. The reference range was not used to interpret this result as normal/abnormal. MPV (test code = 04720-7) 8.2 fL 9.5-12.9 L NRBC/100 WBC (test code = 7907312702) See_Comment [Automated [employer] ssage] The system which generated this result transmitted reference range: 0.0 - 10.0 /100 WBCs. The reference range was not used to interpret this result as normal/abnormal. NRBC x10^3 (test code = 3375507629) <0.01 See_Comment [Automated messa ge] The system which generated this result transmitted reference range: 10*3/?L. The reference range was not used to interpret this result as normal/abnormal. GRAN MAT (NEUT) % (test code = 770-8) 61.7 % IMM GRAN % (test code = 0790673133) 0.80 % LYMPH % (test code = 736-9) 28.5 % MONO % (test code = 5905-5) 6.3 % EOS % (test code = 713-8) 1.8 % BASO % (test code = 706-2) 0.9 % GRAN MAT x10^3(ANC) (test code = 8486329006) 7.31 10*3/uL 1.88-7.09 H IMM GRAN x10^3 (test code = 6130031877) 0.09 10*3/uL 0.00-0.06 H LYMPH x10^3 (test code = 731-0) 3.38 10*3/uL 1.32-3.29 H MONO x10^3 (test code = 742-7) 0.75 10*3/uL 0.33-0.92 EOS x10^3 (test code = 711-2) 0.21 10*3/uL 0.03-0.39 BASO x10^3 (test code = 704-7) 0.11 10*3/uL 0.01-0.07 H Lab Interpretation (test code = 83731-0) Abnormal [place] [address] (ID NOW RAPID TESTING)2021-03-17 01:38:12* Test Item Value Reference Range Interpretation Comme nts SARS-CoV-2 Rapid ID NOW (test code = 64284-8) Not Detected Not Detected LYNDSAY (test code = LYNDSAY) ID NOW COVID-19 As say is an isothermal nucleic acid amplification test intended for the qualitative detection of nucleic acid from SARS-CoV-2 viral RNA in nasopharyngeal (HOT WIRE GLASS TUBE CUTTER) specimens. It is used under Emergency Use [...] clinically indicated. Lab Interpretation (test code = 87051-8) Normal [place] [address] (ID NOW RAPID TESTING)2021-03-17 01:38:12* Test Item Value Reference Range Interpretation Comme nts SARS-CoV-2 Rapid ID NOW (raisa t code = 41474-3) Not Detected Not Detected LYNDSAY (test code = LYNDSAY) Lab Interpretation (test cod e = 16370-7) Normal [place] [address] (ID NOW RAPID TESTING)2021-02-19 17:42:45* Test Item Value Reference Range Interpretation Comme nts SARS-CoV-2 Rapid ID NOW (test code = 29826-8) Not Detected Not Detected LYNDSAY (test code = LYNDSAY) ID NOW COVID-19 As say is an isothermal nucleic acid amplification test intended for the qualitative detection of nucleic acid from SARS-CoV-2 viral RNA in nasopharyngeal (HOT WIRE GLASS TUBE CUTTER) specimens. It is used under Emergency Use [...] clinically indicated. Lab Interpretation (test code = 53682-2) Normal [facility] W [id number] 17:24:55Thickening of the gastric antrum and duodenal [...] 02/19/2021 12:26 PM CDT Patient name: HEATHER OVERTON THOMASDOB: 1970 51 years EXAMINATION: CT ABDOMEN [...] Electronicallysigned by James Freeman at 02/19/2021 12:24 [facility]inalysis[facility]21-[facility] 17:03:40* Test Item Value Reference Range Interpretation Comme nts APPEARANCE (test code = 9987522869) Hazy Clear A COLOR (test code = 5451539116) Mabel Yellow A PH (test code = 2832190784) 4.8-8.0 SP GRAVITY (test code = 0050108113) 1.003-1.030 H GLU U QUAL (test code = 1557616078) Normal Normal BLOOD (test code = 8242853567) Negative Negative KETONES (test code = 5570048159) 5 mg/dL Negative A PROTEIN (test code = 2887-8) 30 mg/dL Negative A UROBILIN (test code = 2186845005) 4.0 mg/dL Normal A BILIRUBIN (test code = 2089126927) 4 mg/dL Negative A NITRITE (test code = 5656855527) Negative Negative LEUK GRUPO (test code = 1153910048) Negative Negative RBC/HPF (test code = 0470330486) See_Comment H [Automated messa ge] The system which generated this result transmitted reference range: 0 - 3 HPF. The reference range was not used to interpret this result as normal/abnormal. WBC/HPF (test code = 1098550477) See_Comment H [Automated messa ge] The system which generated this result transmitted reference range: 0 - 5 HPF. The reference range was not used to interpret this result as normal/abnormal. BACTERIA (test code = 0303157269) Few Negative A MUCOUS (test code = 4249219878) Moderate Negative LPF A SQ EPITH (test code = 7426143197) HPF CA OXALATE (test code = 5935986840) See_Comment H [Automated messa ge] The system which generated this result transmitted reference range: <=1 HPF. The reference range was not used to interpret this result as normal/abnormal. Ictotest (test code = 7087599825) Negative Lab Interpretation (test code = 45103-7) Abnormal [facility] Hospital[facility] Metabolic [id number] 16:34:55* Test Item Value Reference Range Interpretation Comme nts NA (test code = 2506328370) 139 mmol/L 135-145 K (test code = 7065489354) 4.3 mmol/L 3.5-5.0 CL (test code = 5388926123) 105 mmol/L 98-108 CO2 TOTAL (test code = 1268216168) 26 mmol/L 23-31 AGAP (test code = 7919250210) 2-16 BUN (test code = 3970646563) 11 mg/dL 7-23 GLUCOSE (test code = 1154460667) 95 mg/dL 70-110 CREATININE (test code = 9093988668) 0.70 mg/dL 0.50-1.04 TOTAL BILI (test code = 4797460314) 0.6 mg/dL 0.1-1.1 CALCIUM (test code = 2454419698) 8.9 mg/dL 8.6-10.6 T PROTEIN (test code = 8978425238) 7.7 g/dL 6.3-8.2 ALBUMIN (test code = 4414554355) 4.1 g/dL 3.5-5.0 ALK PHOS (test code = 2153788933) 79 U/L 34-122 ALTv (test code = 1742-6) 10 U/L 5-35 AST(SGOT) (test code = 3740105117) 22 U/L 13-40 eGFR (test code = 9666994251) mL/min/1.73m2 LYNDSAY (test code = LYNDSAY) Association [...] urine or abnormalities in imaging tests). [facility] HospitalLipase, [id number] 16:34:14* Test Item Value Reference Range Interpretation Comme nts LIPASE (test code = 1800213602) 45 U/L 0-220 Lab Interpretation (test cod e = 61526-9) Normal [facility] HospitalCBC with [id number] 16:21:12* Test Item Value Reference Range Interpretation Comme nts WBC (test code = 6690-2) See_Comment [Automated [email or web address]] The system which generated this result transmitted reference range: 4.30 - 11.10 10*3/?L. The reference range was not used to interpret this result as normal/abnormal. RBC (test code = 789-8) See_Comment [Automated [email or web address]] The system which generated this result transmitted [...] g/dL 31.6-35.1 L RDW-SD (test code = 10253-5) 54.4 fL 39.0-49.9 H RDW-CV (test code = 788-0) 18.3 % 12.0-15.5 H PLT (test code = 777-3) See_Comment H [Automated [email or web address]] The system which generated this result transmitted reference range: 166 - 358 10*3/?L. The reference range was not used to interpret this result as normal/abnormal. MPV (test code = 87641-4) 8.5 fL 9.5-12.9 L NRBC/100 WBC (test code = 3158872893) See_Comment [Automated me ssage] The system which generated this result transmitted reference range: 0.0 - 10.0 /100 WBCs. The reference range was not used to interpret this result as normal/abnormal. NRBC x10^3 (test code = 5862801843) <0.01 See_Comment [Automated messa ge] The system which generated this result transmitted reference range: 10*3/?L. The reference range was not used to interpret this result as normal/abnormal. GRAN MAT (NEUT) % (test code = 770-8) 78.3 % IMM GRAN % (test code = 8541418522) 0.40 % LYMPH % (test code = 736-9) 15.4 % MONO % (test code = 5905-5) 4.8 % EOS % (test code = 713-8) 0.1 % BASO % (test code = 706-2) 1.0 % GRAN MAT x10^3(ANC) (test code = 3780216108) 7.15 10*3/uL 1.88-7.09 H IMM GRAN x10^3 (test code = 5651298608) 0.04 10*3/uL 0.00-0.06 LYMPH x10^3 (test code = 731-0) 1.41 10*3/uL 1.32-3.29 MONO x10^3 (test code = 742-7) 0.44 10*3/uL 0.33-0.92 EOS x10^3 (test code = 711-2) <0.03 0.03-0.39 L BASO x10^3 (test code = 704-7) 0.09 10*3/uL 0.01-0.07 H Lab Interpretation (test code = 98993-7) [facility] Notes Date/Time Note Provider Source 2024-08-10 12:16:49 Associated Order(s): IP CONSULT TO SOCIAL WORK Reason For Consult SW consulted for transport home. Pt transferred from [place]. SW spoke with pt at bedside, pt states she is going to her friend's [place] ([phone]) home at [address] Pt is wheelchair bound and does not have wheelchair here. SW arranged [facility] Miky 2024-01-10 12:39:30 Associated Order(s): CONSULT CARDIOLOGY [facility] Cardiology Consult PCP: PATIENT DOES NOT HAVE A PCP Date of Service: 01/10/2024 CHIEF COMPLAINT/reason for consult: Chest pain HISTORY OF PRESENT ILLNESS This is a 53 years old female with past medical history of smoking, COPD, hypertension, obesity, nonobstructive coronary artery disease, systolic and diastolic heart failure, left ventricular thrombosis and pulm hypertension. She presented to [facility] emergency room with chest pain. [...] (chronic obstructive pulmonary disease) Diverticulitis Epilepsy Hypertension PR (myocardial infarction) 07/20/2007 Slipped disc Stomach cancer Substance abuse Marijuana daily-for anxiety Past Surgical History: Procedure Laterality Date ANTERIOR CERVICAL FUSION CHOLECYSTECTOMY HAND/FINGER SURGERY UNLISTED Bilateral 3 L hand, 3 R hand METATARSAL OSTEOTOMY Right 08/14/2015 Surgeon: Luis Jones Jr., DPM; Location: [facility] [place] TONSILLECTOMY Family History Problem Relation [...] pulmonary disease) Obesity Coronary artery disease involving [place] coronary artery of [place] heart without angina pectoris Snores Cigarette smoker [...] be of further assistance. Kylee Diego MD, FAC, AMADOR Office Associate Division of Cardiovascular Medicine [facility] - Health 2023-12-15 08:28:19 Associated Order(s): CONSULT CARDIOLOGY [facility] Cardiology Consult PCP: PATIENT DOES NOT HAVE A PCP Date of Service: 12/15/2023 CHIEF COMPLAINT/reason for consult: Heart failure HISTORY OF PRESENT ILLNESS This is a 53 years old female with past medical history of smoking, COPD, hypertension, obesity, nonobstructive coronary artery disease, systolic and diastolic heart failure, left ventricular thrombosis and pulm hypertension. She presented to [facility] emergency room with dyspnea, chest [...] (chronic obstructive pulmonary disease) Diverticulitis Epilepsy Hypertension PR (myocardial infarction) 07/20/2007 Slipped disc Stomach cancer Substance abuse Marijuana daily-for anxiety Past Surgical History: Procedure Laterality Date ANTERIOR CERVICAL FUSION CHOLECYSTECTOMY HAND/FINGER SURGERY UNLISTED Bilateral 3 L hand, 3 R hand METATARSAL OSTEOTOMY Right 08/14/2015 Surgeon: Luis Jones Jr., JOHANNM; Location: [facility] [place] TONSILLECTOMY Family History Problem Relation [...] pain, unspecified type Coronary artery disease involving [place] coronary artery of [place] heart without angina pectoris Snores Cigarette smoker [...] be of further assistance. Kylee Diego MD, FAC, AMADOR Office Associate Division of Cardiovascular Medicine [facility] [employer] 2023-11-27 14:57:00 Associated Order(s): CONSULT ADULT PHYSICAL THERAPY 11/27/2023 Physical therapy note: Duplicate consult. Sami Teran PT, DPT,CMSR Sami Teran PT [facility] 2023-11-25 10:16:00 Associated Order(s): CONSULT ADULT PHYSICAL [...] (chronic obstructive pulmonary disease) Diverticulitis Epilepsy Hypertension PR (myocardial infarction) 07/20/2007 Slipped disc Stomach cancer Substance abuse Marijuana daily-for anxiety PSH: Past Surgical History: Procedure Laterality Date ANTERIOR CERVICAL FUSION CHOLECYSTECTOMY HAND/FINGER SURGERY UNLISTED Bilateral 3 L hand, 3 R hand METATARSAL OSTEOTOMY Right 08/14/2015 Surgeon: Luis Jones Jr., ESTHER; Location: [facility] [place] TONSILLECTOMY Prior Living Situation: lives [...] -Pain Management: Nursing Notified COMMUNICATION Primary Language: Puerto Rican Able to Verbalize needs: Yes Vision:good; no [...] Treatment Time in Minutes: 30 min Sami Lynn. JeffryPT, DPT,CMSR [facility] - Health History and Physical [...] on blood thinners. Pt was transferred to [facility] ED for a higher level of [...] on blood thinners. Pt was transferred to [facility] ED for a higher level of [...] repeat CT brain without contrast. Please call [phone] to schedule an appointment. Importance of follow up and red flags symptoms discussed with patient. She was counseled on not take ASA or blood thinners. - Please call [phone] with NSGY questions or concerns Prakash Eckert MD [facility] Neurosurgery Cosigned by Gus Jamison MD at 08/10/2024 8:06 AM MEDICAL OFFICE PROFESSIONAL INSTRUCTOR CAL OFFICE PROFESSIONAL INSTRUCTOR CAL OFFICE PROFESSIONAL INSTRUCTOR Associated attestation - Gus Jamison MD - 08/10/2024 8:06 AM MEDICAL OFFICE PROFESSIONAL INSTRUCTOR I have reviewed the case and imaging. The CT shows minimal, unchanged hemorrhage that does not require intervention. We will defer further management to the ER and neurology. Please call [phone] with questions. Neurosurgery Physician [facility] 2024-01-09 22:04:15 [facility] Hospitalist Admission H&P Date of Service: 01/09/2024 CHIEF COMPLAINT: Patient with complaints of chest pain and a history of cardiomyopathy with left ventricular thrombus HISTORY OF PRESENT ILLNESS Heather Turner is a 53 year old female who presents with chest discomfort. Patient had extensive cardiac workup done recently at [facility]. At that time, patient was noted to [...] a while. Patient recently started coming to [facility] as she had been going to [facility]. At this time, she will be [...] (chronic obstructive pulmonary disease) Diverticulitis Epilepsy Hypertension PR (myocardial infarction) 07/20/2007 Slipped disc Stomach cancer Substance abuse Marijuana daily-for anxiety Pseudoseizures PAST SURGICAL HISTORY Past Surgical History: Procedure Laterality Date ANTERIOR CERVICAL FUSION CHOLECYSTECTOMY HAND/FINGER SURGERY UNLISTED Bilateral 3 L hand, 3 R hand METATARSAL OSTEOTOMY Right 08/14/2015 Surgeon: Luis Jones Jr., ESTHER; Location: [facility] OR Location TONSILLECTOMY ALLERGIES Allergies Allergen [...] edema versus atypical pneumonia. RL: [id number] AF: [id number] End of report CHEST 1 VW Narrative [...] high risk of morbidity and mortality. [place] PERSONNEL ARBITRATOR was verified during stay Darrick Fry MD T [facility] 2023-12-14 22:42:40 MEDICINE [facility] ADMIT H&P Date of Service: 12/14/2023 CHIEF COMPLAINT: shortness of breath Subjective History of Present Illness 53 year old female with a PMH significant for HFrEF (15-20% on 11/22/23) w/ LV thrombus, RLE DVT, RLL segmental PE, HTN, smoker, COPD, chronic low back pain, depression presenting from [facility] ED due to chest heaviness and [...] (chronic obstructive pulmonary disease) Diverticulitis Epilepsy Hypertension PR (myocardial infarction) 07/20/2007 Slipped disc Stomach cancer Substance abuse Marijuana daily-for anxiety Past Surgical History: Procedure Laterality Date ANTERIOR CERVICAL FUSION CHOLECYSTECTOMY HAND/FINGER SURGERY UNLISTED Bilateral 3 L hand, 3 R hand METATARSAL OSTEOTOMY Right 08/14/2015 Surgeon: Luis Jones Jr., DPM; Location: [facility] [place] TONSILLECTOMY Family History Problem Relation [...] On Eliquis Code Status: Full Code T [facility] EMERGENCY PHYSICIAN STAFF [facility] 2023-11-22 13:30:57 CCU Team Admit H&P Date [...] lumbar spinal stenosis, and depression presenting from [facility] ED due to SOB. Patient with [...] (chronic obstructive pulmonary disease) Diverticulitis Epilepsy Hypertension PR (myocardial infarction) 07/20/2007 Slipped disc Stomach cancer Substance abuse Marijuana daily-for anxiety Prior to Admission medications Medication Sig Start Date End Date Taking? Authorizing Provider metoprolol succinate XL 25 mg 24 hr tablet Take 1 tablet by mouth every morning. 05/11/23 Yes Doctor Unassigned, [place] spironolactone 25 mg tablet Take 1 tablet by mouth in the morning and 1 tablet in the evening. 09/30/23 Yes Doctor Unassigned, [place] DULoxetine 30 mg capsule Take 1 capsule by mouth in the morning. Doctor Unassigned, [place] furosemide 20 mg tablet Take 1 tablet by mouth every morning and evening. Doctor Unassigned, [place] Lacosamide (VIMPAT) 100 mg tablet Take 1 [...] 8 (eight) hours as needed. Doctor Unassigned, [place] pantoprazole 40 mg EC tablet Take 40 mg by mouth daily. Doctor Unassigned, [place] amLODIPine (NORVASC) 10 mg tablet Take 1 Tab by mouth daily. 09/20/15 Kylee Diego MD carvedilol (COREG) 6.25 mg tablet Take 1 Tab by mouth 2 (two) times daily with meals. 09/20/15 Kylee Diego MD lisinopril (PRINIVIL,ZESTRIL) 40 mg tablet Take 1 Tab by mouth daily. 09/20/15 Kylee Diego MD loratadine (CLARITIN LIQUI-GEL) 10 mg capsule Take by mouth daily. Doctor Unassigned, [place] MULTIVITAMIN ORAL Take 1 Tab by mouth daily. Doctor Unassigned, [place] omega-3 fatty acids-vitamin E (FISH OIL) 1,000 mg capsule Take 1 g by mouth daily. Doctor Unassigned, [place] Allergies Allergen Reactions Green Tea Other - See comments Seizures Diclofenac Hypertension Keppra [Levetiracetam] Other - See comments Makes seizures worse Past surgical history: Past Surgical History: Procedure Laterality Date ANTERIOR CERVICAL FUSION CHOLECYSTECTOMY HAND/FINGER SURGERY UNLISTED Bilateral 3 L hand, 3 R hand METATARSAL OSTEOTOMY Right 08/14/2015 Surgeon: Luis Jones Jr., DP; Location: [facility] OR [facility] TONSILLECTOMY Allergies: Allergies Allergen Reactions Green Tea [...] Friends and Family: Not on file Attends Jewish Services: Not on file Active Member of [...] Otherwise, Sonographically unremarkable right upper quadrant. RL: [id number] HS:Y CHEST PULMONARY ANGIOGRAM Result Date: 11/22/2023 [...] on TTE, currently on heparin gtt. Negative Mccormick Criteria. Blood cultures NGTD. Received cefepime 1 [...] ordering referrals and/or communicating with other health after school caregiver (not separately reported), documenting clinical information in the electronic or other health record, and care coordination (not separately reported). 53 yo F with cardiogenic shock and PE Acute decompensated HFrEF NSTEMI Pulmonary embolism Polysubstance use LV thrombus COPD Elevated lactate- started on milrinone on 11/21 Continue milrinone Continue anticoagulation RHC/LHC today for BiV failure Cr Fry MD Computer Teacher [facility] Cardiology 11/23/23 [facility] [employer] 2023-11-22 02:28:50 MEDICINE [place] H&P PCP: PATIENT DOES NOT HAVE A PCP Date of Service: 11/21/2023 CHIEF COMPLAINT: SOB History of Present Illness Heather Turner is a 53 year old female with a PMH significant for HFrEF (~35% 05/2023), HTN, Smoker, COPD, chronic low back pain, depression presenting from [facility] ED due to SOB. Pt states her home pulse ox was reading 86% and was having trouble catching her breath. Associated sx include PETERSON, orthopnea, CP that is substernal, pressure-like, and non radiating. She says the SOB started earlier today with productive cough. Denies fevers or chills. No recent sick contacts. States she was treated for pneumonia at [place] 2 weeks ago with levaquin and prednisone [...] (chronic obstructive pulmonary disease) Diverticulitis Epilepsy Hypertension PR (myocardial infarction) 07/20/2007 Slipped disc Stomach cancer Substance abuse Marijuana daily-for anxiety Past Surgical History: Procedure Laterality Date ANTERIOR CERVICAL FUSION CHOLECYSTECTOMY HAND/FINGER SURGERY UNLISTED Bilateral 3 L hand, 3 R hand METATARSAL OSTEOTOMY Right 08/14/2015 Surgeon: Luis Jones Jr., ESTHER; Location: [facility] [place] TONSILLECTOMY Family History Problem Relation [...] Depakote - c/w flomax Pain UncontrolledTylenol and [place] Prophylaxis: DVT- heparin Stress Ulcer: pantoprazole Code [...] results to the patient. Ivis Mcdermott MD Computer Teacher Department of Internal Medicine Division of Cardiovascular Disease [facility] Procedure Notes Date/Time Note Provider Source 2023-11-23 15:17:41 Left Heart Cath/Coronary Angiography Date of Service: 11/23/2023 3:18 PM Indication/Diagnosis: heart failure Consent source: self Consent type: indications/complications discussed with patient/legal guardian; written consent obtained Time out completed: yes Aseptic technique: Chlorprep Local Anesthesia: 1% lidocaine without epinephrine Sedation: fentanyl 50 mcg, Versed 2 mg Access site: right radial artery, RIJ Willow 4.0 5fr 8 Fr IJ sheath Conner Rosalba Closure Method: TR Band, manual pressure [...] was present for the entire procedure. [facility] Associated attestation - Cris Molina MD - [...] of right sided failure. Cris Molina MD interpersonal communications professor. Division of cardiovascular medicine [facility] IM-CARDIOVASCULAR DISEASE [facility] - Health Notes Pending Results Date/Time Note Provider Source 2024-10-24 13:52:00 [facility] ([facility]) Hospitalist Progress Note REPORT#:[id number] REPORT STATUS: Signed REPORT INITIALIZATION DATE:10/24/24 TIME:1351 PATIENT: HEATHER TURNER UNIT #: [id number] ROOM/BED: [place] [address] : 72 AGE: 54 SEX: F ATTEND: Segundo Toledo MD ADM AUTHOR: Ignacio Langston MD REPT SERVICE DT/TIME: 10/24/24 1352 * ALL edits or amendments must be made on the electronic/computer document * Subjective Chief complaint: Breakthrough seizures HPI: 54 y/o F with PMH of HTN, T2DM, PR 20 yrs ago, no stent, CVA with subsequent seizure, and bipolar was transferred from [facility] for seizure eval and management. Patient hospitalized in [facility] for 2 weeks due to severe depression and SI after loss of ; mood improved but experienced 9 seizures in the [facility] and 3 witnessed en route to [facility] ED. In the ED, she received IV benzodiazepine and IV fosphenytoin with resolution of seizures. CT brain: negative for acute findings. Lab results showed elevated lactic acid initially 3.1. Patient tested positive for flu. CXR: negative. Also received Tamiflu, azithromycin, ceftriaxone, and IV fluids. Vitals stable. Transferred here for neurology service. Currently, patient reports some chest congestion, otherwise no complaints. One-to-one sitters in place. Denies SI/HI. Free Text Subj Notes Free Text Subj Notes: Patient seen at bedside Patient had another seizure episode this morning Patient is scheduled for LP today Objective Physical Exam Head/Eyes: atraumatic, clear cornea, EOMI, PERRL Neck: full range of motion, non-tender, normal thyroid Cardiovascular: normal capillary refill, normal heart sounds, regular rate rhythm Respiratory: aerating well, clear to auscultation, symmetric expansion Abdomen: non-tender, normal bowel sounds, soft Neuro/CEMETERY COUNSELOR: alert Skin: dry, intact, normal color Psychiatry: anxious Diagnosis, Assessment Plan Free Text DxA P Notes Free text DxA P notes: 54 y/o F with PMH of HTN, T2DM, PR 20 yrs ago, no stent, CVA with subsequent seizure, and bipolar disorder admitted for the following; 1. Status epilepticus Downgraded to IMU Continue Ativan as needed Patient is on multiple seizure medications ,Celebyx, Dilantin and Depakote Neurology is following input appreciated MRI of the brain reported Management of seizure per neurologist. Lead Radiation Therapist also consulted appreciate input EEG is done Lumbar puncture Patient is also on thiamine IV 2. Flu B positive Tamiflu, symptom management 3. Bipolar with depression with suicidal ideation, not active Continue necessary home med Patient evaluated by H CAT and per RN patient is cleared for DC home 4. DM2 SSI 5. Hypertension PRN hydralzine 6. hx of CVA with no residual deficit resume home med 7.. hx of PR, no stents resume home med 8. Hyperlipidemia resume statin tx 9. Chronic back pain s/p lumbar and cervical spine laminectomy Continue home med when available in EMR pain control, reduced morphine dose 10. COPD Patient is on bronchodilator Also on antibiotic 11. Aspiration pneumonia Patient is on antibiotic IV Diet -patient is on carbohydrate diet DVT ppx: Lovenox Full code Dispo Follow CSF analysis and microbiology Possible discharge in 24 to 48 hours Case discussed with nursing staff. Case discussed at [facility] at 1359 RPT #: [id number] END OF REPORT [facility] 2024-10-24 08:55:00 [facility] ([facility]) Neurology Progress Note REPORT#:[id number] REPORT STATUS: Signed REPORT INITIALIZATION DATE:10/24/24 TIME:854 PATIENT: HEATHER TURNER UNIT #: [id number] ROOM/BED: [place] [address] : 72 AGE: 54 SEX: F ATTEND: Segundo Toledo MD ADM AUTHOR: Martín Bone MD REPT SERVICE DT/TIME: 10/24/24 0855 * ALL edits or amendments must be made on the electronic/computer document * Subjective Chief Complaint: 54-year-old female with history of diabetes, obesity, hypertension, PR 20 years ago, stroke with subsequent seizure and seizure disorder reduced to follow-up with a neurologist in [place] but has been noncompliant with medication as well as follow-up, bipolar disorder transferred from [facility] for seizure evaluation and management. Patient hospitalized with severe depression and psychosis at a behavioral health facility. She reportedly had depression and suicidal ideation after loss of . Patient's mood improved but experienced 9 seizures in the [facility]. She had 3 witnessed seizures and route to [facility] as well. At [facility] ER she received IV benzodiazepines and IV fosphenytoin with resolution of the seizures. CT brain reported as negative for acute findings. Labs showed elevated lactic acid initially 3.1. Patient tested positive for flu. No meningeal signs. Chest x-ray negative. Received Tamiflu and Zithromax ceftriaxone IV fluids. Transferred here because there is no neurologist at the other hospital. Currently patient reports some congestion but she is fine no seizures. No lateralized neurological deficits. History Additional medical history: HTN, T2DM, PR, CVA with subsequent seizure, and bipolar, radiculopathy Additional surgical history: Cholecystectomy, right foot surgeries, cervical spine laminectomy, lumbar spine laminectomy, appendectomy, tonsillectomy Additional family history: Noncontributory Alcohol use: Denies EtOH use Drug use: Denies recreational drugs Smoking status for patients 13 years old or older: Never Smoker Medication/Allergy-Vaccine Hx Medications: Current Hospital Medications: History - Adult longitudinal Additional medical history: HTN, T2DM, PR, CVA with subsequent seizure, and bipolar, radiculopathy Additional surgical history: Cholecystectomy, right foot surgeries, cervical spine laminectomy, lumbar spine laminectomy, appendectomy, tonsillectomy Additional family history: Noncontributory Alcohol use: Denies EtOH use Drug use: Denies recreational drugs Smoking status for patients 13 years old or older: Current every day smoker Date last smoked: 10/17/24 Packs per day: 1 Pack years: 0 Allergies: Coded Allergies: [facility] ([facility] (Severe, "MAKES ME FEEL FUNNY" 10/18/24) Review of Systems All systems rev neg: except as marked Review of Systems All systems rev neg: except as marked Objective General VS: Last Documented: Result Date Time Temp 36.7 10/24 818 Pulse Ox 89 10/24 08 B/P 111/54 10/24 08 B/P Mean 78 10/25 799 Pulse 97 10/24 0800 Resp 17 10/25 799 FiO2 21 10/25 723 O2 Delivery Room air 10/25 723 O2 Flow Rate 2 10/21 2100 PATIENT WEIGHT: Weight (lb): 160 Weight (oz): 5.37 Weight (kg): 72.575 Medications Current Home Medications DIVALPROEX DR (DEPAKOTE DR) 1,000 MG PO BID metFORMIN 500 MG PO DAILY FUROSEMIDE (LASIX) 40 MG PO BID LISINOPRIL (ZESTRIL) 5 MG PO DAILY METOPROLOL SUCC XL (TOPROL XL) 25 MG PO DAILY ACETAMINOPHEN/CODEINE (TYLENOL WITH CODEINE #3 300/30 MG) 2 TAB PO Q6H PRN PRN pain methocarbamoL (ROBAXIN) 500 MG PO QID Active Meds + DC'd Last 24 Hrs Doxycycline Hyclate (VIBRAMYCIN) 100 MG BID PO Thiamine HCl (THIAMINE) 100 MG DAILY PO Lidocaine HCl (Xylocaine 1%) 20 ML ONCALL LOCAL Lorazepam (ATIVAN) 0.5 MG ONCE ONE PO (DC) Lorazepam (ATIVAN) 1 MG ONCE PRN IV Hydrocodone Bitart/Acetaminophen (NORCO 5/325) 1 TAB Q6H PRN PRN PO Valproate Sodium (Depacon) 500 MG Q6HR IV Sodium Chloride (SODIUM CHLORIDE 0.9%) 100 ML Thiamine HCl (THIAMINE HCL) 100 MG DAILY IV (DC) Valproate Sodium (Depacon) 500 MG Q6H IV (DC) Sodium Chloride (SODIUM CHLORIDE 0.9% MBP) 100 ML Lidocaine (Salonpas 4%) 1 PATCH DAILY PRN PRN TOPICAL Budesonide (PULMICORT RESPULES) 0.5 MG RTQ12H NEB Albuterol/Ipratropium (DUONEB) 3 ML RTQ6H NEB Doxycycline Hyclate (VIBRAMYCIN) 100 MG Q12H IV (DC) Sodium Chloride (0.9% Sodium Chloride) 250 ML Ceftriaxone Sodium (ROCEPHIN) 1,000 MG Q24H IV Sterile Water (WATER FOR INJECTION) 10 ML Phenytoin Sodium (DILANTIN) 100 MG TID PO Mupirocin (BACTROBAN) 1 APPLIC DAILY NASAL Guaifenesin (ROBITUSSIN) 200 MG Q4H PRN PRN PO Midodrine (PROAMATINE) 5 MG TID PO Melatonin (Melatonin) 5 MG BEDTIME PO Diphenhydramine HCl (BENADRYL) 25 MG Q4H PRN PRN PO Gabapentin (NEURONTIN) 300 MG TID PO Cyclobenzaprine HCl (FLEXERIL) 10 MG BID PO Acetaminophen/Codeine Phosphate (TYLENOL W CODEINE NO.3) 1 TAB Q6H PRN PRN PO Polyethylene Glycol (MIRALAX) 17 GM DAILY PO Insulin Human Lispro (Admelog) ASDIRECTED AC HS SUBQ Enoxaparin Sodium (lovENOX) 40 MG Q24H SUBQ Acetaminophen (TYLENOL) 650 MG Q4H PRN PRN PO Bisacodyl (DULCOLAX) 10 MG DAILY PRN PRN PO Dextrose/Water (DEXTROSE 10% IN WATER 250 ML) 125 ML ASDIR PRN IV Dextrose/Water (DEXTROSE 10% IN WATER 250 ML) 250 ML ASDIR PRN IV Glucagon (GLUCAGON) 1 MG ASDIR PRN IM Hydralazine HCl (APRESOLINE) 10 MG Q6H PRN PRN IV Lorazepam (ATIVAN) 2 MG Q6H PRN PRN IV Ondansetron HCl (ZOFRAN) 4 MG Q4H PRN PRN IV Total time spent today on this critically ill patient was 110 minutes Time spent includes counselling and coordination of care including discussions with family, physician, referring physician, staff and consultants.Time spent also includes Patient management by me, Time spent at bedside, Reviewing test results, Reviewing imaging, Reviewing old and new records, Discussing patient care, Documentation in record, Time with family/surrogate... Nutrition asessment: The data set between the solid lines has been imported from the dietitian's assessment. BMI Calculated: 26.6 Nutrition related diagnosis: Overweight Nutrition diagnosis details: BMI 25-29.9 Nutrition problem: Decreased nutrient needs Nutrition etiology: endocrine dysfunction Nutrition signs and symptoms: need for carbohydrate , controlled diet Nutrition prescription: 1) Consistent carb diet - 4 CHO/meal 2) Biweekly weight checks Dietitian name: Malinda Serna RDN, [place] Assessment completed: 10/21/24 Physical Exam General appearance: awake Head/Eyes: atraumatic ENT: moist mucosal membranes Neck: supple/no meningismus Cardiovascular: regular rate and rhythm Respiratory: no distress Abdomen: soft Extremities: pulses present Musculoskeletal: full range of motion Neuro/CEMETERY COUNSELOR: gait abnormality, alert, oriented X 4, normal speech, EOMI, PERRL, CN II-XII intact, reflexes equal bilat, no motor deficits, no sensory deficits, no cerebellar deficits Neuro comment: Patient alert oriented normal language memory fund of knowledge denies any suicidal or homicidal ideation. EOMI PERRLA Sensation normal in face No facial asymmetry Uvula midline Gag positive Tongue midline Shoulder shrug is normal Motor: Moves all extremities equally 5/5 Sensory symmetric to pinprick Deep and reflexes 2 Plantars are flexor No past-pointing Gait: Abnormal tandem gait Skin: dry, intact Results Findings/Data: Laboratory Tests 10/24 10/24 10/23 10/23 10/23 0750 0419 2029 1604 1124 Chemistry Sodium (136 - 145 mmol/L) 137 Potassium (3.4 - 5.0 mmol/L) 4.3 Chloride (98 - 107 mmol/L) 104 Carbon Dioxide (21 - 32 mmol/L) 25 Anion Gap (4 - 15 GAP calc) 8 BUN (7 - 18 MG/DL) 14 Creatinine (0.6 - 1.0 MG/DL) 0.8 Glomerular Filtr Rate (>60 >=60 max estimate estGFR) Glucose (70 - 110 MG/DL) 86 POC Glucose (70 - 110 mg/dL) 81 119 H 107 114 H Calcium (8.5 - 10.1 MG/DL) 8.4 L Laboratory Tests 10/24 418 Hematology WBC (3.5 - 11.0 K/mm3) 8.7 RBC (4.70 - 6.10 M/mm3) 3.92 L Hgb (10.4 - 14.9 G/DL) 10.9 Hct (31.5 - 44.1 %) 35.9 MCV (84.5 - 98.6 Fl) 91.6 MCH (27.0 - 34.2 pg) 27.8 MCHC (31.5 - 34.0 G/DL) 30.4 L RDW (11.5 - 14.5 SD) 17.5 H Plt Count (150 - 450 K/mm3) 370 MPV (7.0 - 10.5 fL) 7.50 Neut % (Auto) (40 - 76 %) 54.5 Lymph % (Auto) (20.5 - 51.1 %) 30.1 Nye % (Auto) (1.7 - 9.3 %) 10.3 H Eos % (Auto) (0.0 - 6.0 %) 3.2 Baso % (Auto) (0.0 - 2.0 %) 0.9 Neut # (Auto) (1.8 - 7.6 K/mm3) 4.7 Lymph # (Auto) (0.6 - 3.2 K/mm3) 2.6 Nye # (Auto) (0.3 - 1.1 K/mm3) 0.9 Eos # (Auto) (0.0 - 0.4 K/mm3) 0.3 Baso # (Auto) (0.0 - 0.1 K/mm3) 0.1 Abs Immat Gran (auto) (0.00 - 0.03 x10 3/uL) 0.09 H Immature Gran % (0.0 - 5.0 %) 1.0 Nucleated RBC % (0.0 - 1.0 /100WBC%) 0.0 Radiology Data: Recent Impressions: RADIOLOGY - XR HAND 2 V LT 10/23 1230 Report Impression - Status: SIGNED Entered: 10/23/2024 9993 IMPRESSION: No definite acute fracture or dislocation. Impression By: [email or web address] - John Dowd M.D. Diagnosis, Assessment Plan Problem List/A P: 1. Seizures 2. Breakthrough seizure 3. Influenza B Free Text A P: 54-year-old female with history of diabetes, obesity, hypertension, PR 20 years ago, stroke with subsequent seizure and seizure disorder reduced to follow-up with a neurologist in [place] but has been noncompliant with medication as well as follow-up, bipolar disorder transferred from [facility] for seizure evaluation and management. Patient hospitalized with severe depression and psychosis at a [facility] health facility. She reportedly had depression and suicidal ideation after loss of . Patient's mood improved but experienced 9 seizures in the [facility]. She had 3 witnessed seizures and route to [facility] as well. At [facility] ER she received IV benzodiazepines and IV fosphenytoin with resolution of the seizures. CT brain reported as negative for acute findings. Labs showed elevated lactic acid initially 3.1. Patient tested positive for flu. No meningeal signs. Chest x- ray negative. Received Tamiflu and Zithromax ceftriaxone IV fluids. Transferred here because there is no neurologist at the other hospital. Currently patient reports some congestion but she is fine no seizures. No lateralized neurological deficits. History Additional medical history: HTN, T2DM, PR, CVA with subsequent seizure, and bipolar, radiculopathy Additional surgical history: Cholecystectomy, right foot surgeries, cervical spine laminectomy, lumbar spine laminectomy, appendectomy, tonsillectomy Additional family history: Noncontributory Alcohol use: Denies EtOH use Drug use: Denies recreational drugs Smoking status for patients 13 years old or older: Never Smoker Medication/Allergy-Vaccine Hx Medications: Current Hospital Medications: EEG: Sleep deprived: no Medications: Current Hospital Medications: Ahfs Category Unknown Sig/Sanchez Start time Last Medication Dose Route Stop Time Status Admin Melatonin 5 MG BEDTIME 10/18 2100 AC (Melatonin) PO 11/17 205 Anti-Infective Agents Sig/Sanchez Start time Last Medication Dose Route Stop Time Status Admin Oseltamivir Phosphate 75 MG Q12HR 10/18 1000 AC 10/18 (TAMIFLU) PO 10/22 2201 1019 Autonomic Drugs Sig/Sanchez Start time Last Medication Dose Route Stop Time Status Admin Cyclobenzaprine HCl 10 MG BID 10/18 1217 AC (FLEXERIL) PO 11/17 1216 Blood Formation,Coagulation Sig/Sanchez Start time Last Medication Dose Route Stop Time Status Admin Enoxaparin Sodium 40 MG Q24H 10/18 0513 AC 10/18 (lovENOX) SUBQ 11/01 0512 0613 Cardiovascular Drugs Sig/Sanchez Start time Last Medication Dose Route Stop Time Status Admin Hydralazine HCl 10 MG Q6H PRN PRN 10/18 0245 AC (APRESOLINE) IV 11/17 0244 Central Nervous System Agents Sig/Sanchez Start time Last Medication Dose Route Stop Time Status Admin Gabapentin 300 MG TID 10/18 1300 AC (NEURONTIN) PO 11/17 1259 Acetaminophen/ 1 TAB Q6H PRN PRN 10/18 1215 AC Codeine Phosphate PO 10/28 1214 (TYLENOL W CODEINE NO.3) Morphine Sulfate 4 MG ONCE ONE 10/18 1215 DC (morphine SULFATE) IV 10/18 1216 Fosphenytoin Sodium 100 MG Q12HR 10/18 1000 CAN (Cerebyx) IV 11/17 0959 Fosphenytoin Sodium 100 MG Q12HR 10/18 1000 AC 10/18 (Cerebyx) IV 11/17 0959 1020 Sodium Chloride 50 ML (0.9% Sodium Chloride) Hydrocodone Bitart/ 1 TAB Q4H PRN PRN 10/18 0345 DC 10/18 Acetaminophen PO 10/28 0344 1019 (NORCO 5/325) Acetaminophen 650 MG Q4H PRN PRN 10/18 024 AC (TYLENOL) PO 11/17 024 Lorazepam 2 MG Q6H PRN PRN 10/18 024 AC (ATIVAN) IV 11/17 0244 Acetaminophen 975 MG X1ED STA 10/18 0136 DC 10/18 (TYLENOL) PO 10/18 0137 0146 Electrolytic, Caloric, And Bhanu Sig/Sanchez Start time Last Medication Dose Route Stop Time Status Admin Dextrose/Water 125 ML ASDIR PRN 10/18 024 AC (DEXTROSE 10% IN IV 11/17 024 WATER 250 ML) Dextrose/Water 250 ML ASDIR PRN 10/18 0245 AC (DEXTROSE 10% IN IV 11/17 024 WATER 250 ML) Gastrointestinal Drugs Sig/Sanchez Start time Last Medication Dose Route Stop Time Status Admin Polyethylene Glycol 17 GM DAILY 10/18 0900 AC (MIRALAX) PO 11/17 0859 Bisacodyl 10 MG DAILY PRN PRN 10/18 024 AC (DULCOLAX) PO 11/17 0244 Ondansetron HCl 4 MG Q4H PRN PRN 10/18 0245 AC (ZOFRAN) IV 11/17 0244 Hormones And Synthetic Substit Sig/Sanchez Start time Last Medication Dose Route Stop Time Status Admin Insulin Human Lispro See Dose AC HS 10/18 07 AC (Admelog) Insts (1) SUBQ 11/17 07 Glucagon 1 MG ASDIR PRN 10/18 0245 AC (GLUCAGON) IM 11/17 0244 Dose Instructions: (1)Insulin Human Lispro (Admelog): ASDIRECTED Procedure Date of procedure: 10/18/24 Procedure performed: extended EEG>60m no video Indication: altered mental status, seizure, syncope Procedure description: 18 channels of at least 61-minute EEG recording utilizing international 10/20 system done today. EEG data was digitally acquired and analyzed. EKG strip is abnormal please correlate with twelve-lead EKG. Findings: Background activity consists of disorganized 9 Hz waveforms noted over both posterior quadrants. 6 to 7 Hz waveforms were seen over both hemispheres. Activation: Unremarkable Sleep: Awake and asleep Impression/Conclusion: This EEG shows mild nonspecific cerebral dysfunction. No electrographic seizures and no epileptiform activity noted. at 212 MRI brain: FINDINGS: Brain: There are no signs of intracranial hemorrhage, acute infarction, cerebral edema, mass occupying lesion, midline shift or intra or extra-axial fluid collections. Minimal chronic white matter small vessel ischemic disease. No abnormal enhancement. No evidence of temporal lobe edema or mesiotemporal sclerosis. Cerebral ventricles: Normal. No ventriculomegaly. Bones: No destructive bone lesions. Paranasal sinuses: Clear paranasal sinuses. Mastoid air cells: Well pneumatized mastoid air cells and middle ear cavities. Grossly unremarkable internal ear structures by limited scope examination. Orbital cavities: No acute orbital abnormalities. Nasal cavity: Smooth right nasal septum deviation, likely constitutional. Vasculature: Normal flow voids are seen in the anterior and posterior cerebral arterial circulation as well as the venous sinuses. Soft tissues: No scalp edema, soft tissue air or radiopaque foreign body. IMPRESSION: 1. No MR explanation for the patient's seizures. 2. Normal evidence of acute intracranial ischemia or hemorrhage. 3. Negative for gliosis, mesiotemporal sclerosis or migrational abnormality. 4. Mild chronic white matter small vessel ischemic disease. EEG:Sleep deprived: no Medications: Current Hospital Medications: fs Category Unknown Sig/Sanchez Start time Last Medication Dose Route Stop Time Status Admin Melatonin 5 MG BEDTIME 10/18 2099 AC 10/20 (Melatonin) PO 11/17 Anti-Infective Agents Sig/Sanchez Start time Last Medication Dose Route Stop Time Status Admin Doxycycline Hyclate 100 MG Q12H 10/21 1999 AC 10/20 (VIBRAMYCIN) IV 10/25 Sodium Chloride 250 ML (0.9% Sodium Chloride) Ceftriaxone Sodium 1,000 MG Q24H 10/20 1800 AC 10/20 (ROCEPHIN) IV 04/08 1759 1808 Sterile Water 10 ML (WATER FOR INJECTION) Oseltamivir Phosphate 75 MG Q12HR 10/18 1000 AC 10/20 (TAMIFLU) PO 10/22 Antihistamine Drugs Sig/Sanchez Start time Last Medication Dose Route Stop Time Status Admin Diphenhydramine HCl 25 MG Q4H PRN PRN 10/18 2030 AC 10/20 (BENADRYL) PO 11/17 2022019 Autonomic Drugs Sig/Sanchez Start time Last Medication Dose Route Stop Time Status Admin Midodrine 5 MG TID 10/19 1900 AC 10/20 (PROAMATINE) PO 11/18 1859 170 Cyclobenzaprine HCl 10 MG BID 10/18 121 AC 10/20 (FLEXERIL) PO 11/17 121 2020 Blood Derivatives Sig/Sanchez Start time Last Medication Dose Route Stop Time Status Admin Albumin Human 25 GM Q8H 10/20 0600 AC 10/20 (Albumin 25%) IV 10/21 0559 2018 Albumin Human 25 GM Q8H 10/19 1900 DC 10/19 (Albumin 25%) IV 10/20 1859 2246 Blood Formation,Coagulation Sig/Sanchez Start time Last Medication Dose Route Stop Time Status Admin Enoxaparin Sodium 40 MG Q24H 10/18 0513 AC 10/20 (lovENOX) SUBQ 11/01 0512 0631 Cardiovascular Drugs Sig/Sanchez Start time Last Medication Dose Route Stop Time Status Admin Hydralazine HCl 10 MG Q6H PRN PRN 10/18 0245 AC (APRESOLINE) IV 11/17 0244 Central Nervous System Agents Sig/Sanchez Start time Last Medication Dose Route Stop Time Status Admin Phenytoin Sodium 100 MG TID 10/20 1700 AC 10/20 (DILANTIN) PO 11/19 1659 1701 Fosphenytoin Sodium 500 MG ONCE ONE 10/20 1245 CAN (Cerebyx) IV 10/20 1246 Phenytoin Sodium 500 MG ONCE ONE 10/20 1215 CAN (DILANTIN) IV 10/20 1216 Morphine Sulfate 2 MG Q4H PRN PRN 10/20 0845 AC 10/20 (morphine Sulfate) IV 10/23 0838 2016 Morphine Sulfate 4 MG Q4H PRN PRN 10/19 1315 DC 10/19 (morphine Sulfate) IV 10/22 1314 2147 Gabapentin 300 MG TID 10/18 1300 AC 10/20 (NEURONTIN) PO 11/17 1259 1701 Acetaminophen/ 1 TAB Q6H PRN PRN 10/18 1215 AC 10/19 Codeine Phosphate PO 10/28 1214 0526 (TYLENOL W CODEINE NO.3) Fosphenytoin Sodium 100 MG Q12HR 10/18 1000 DC 10/20 (Cerebyx) IV 11/17 0959 1024 Sodium Chloride 50 ML (0.9% Sodium Chloride) Acetaminophen 650 MG Q4H PRN PRN 10/18 0245 AC 10/20 (TYLENOL) PO 11/17 0244 1702 Lorazepam 2 MG Q6H PRN PRN 10/18 0245 AC 10/20 (ATIVAN) IV 11/17 0244 1113 Electrolytic, Caloric, And Bhanu Sig/Sanchez Start time Last Medication Dose Route Stop Time Status Admin Dextrose/Water 125 ML ASDIR PRN 10/18 0245 AC (DEXTROSE 10% IN IV 11/17 024 WATER 250 ML) Dextrose/Water 250 ML ASDIR PRN 10/18 024 AC (DEXTROSE 10% IN IV 11/17 024 WATER 250 ML) Gastrointestinal Drugs Sig/Sanchez Start time Last Medication Dose Route Stop Time Status Admin Polyethylene Glycol 17 GM DAILY 10/18 0900 AC 10/19 (MIRALAX) PO 11/17 0859 0946 Bisacodyl 10 MG DAILY PRN PRN 10/18 0245 AC (DULCOLAX) PO 11/17 0244 Ondansetron HCl 4 MG Q4H PRN PRN 10/18 0245 AC (ZOFRAN) IV 11/17 0244 Hormones And Synthetic Substit Sig/Sanchez Start time Last Medication Dose Route Stop Time Status Admin Methylprednisolone 125 MG ONCE ONE 10/20 1230 CAN Sodium Succinate IV 10/20 1231 (Solu-MEDROL) Insulin Human Lispro See Dose AC HS 10/18 0730 AC 10/18 (Admelog) Insts (1) SUBQ 11/17 0729 2100 Glucagon 1 MG ASDIR PRN 10/18 0245 AC (GLUCAGON) IM 11/17 0244 Respiratory Tract Agents Sig/Sanchez Start time Last Medication Dose Route Stop Time Status Admin Guaifenesin 200 MG Q4H PRN PRN 10/19 2200 AC 10/19 (ROBITUSSIN) PO 11/18 2159 2258 Skin And Mucous Membrane Agent Sig/Sanchez Start time Last Medication Dose Route Stop Time Status Admin Mupirocin 1 APPLIC DAILY 10/20 1134 AC 10/20 (BACTROBAN) NASAL 10/29 0901 1229 Dose Instructions: (1)Insulin Human Lispro (Admelog): ASDIRECTED Procedure Date of procedure: 10/20/24 Procedure performed: extended EEG>60m no video Indication: seizure Procedure description: 18 channels of at least 61-minute EEG recording utilizing international 10/20 system done today. EEG data was digitally acquired and analyzed. EKG strip is abnormal please correlate with twelve-lead EKG. Findings: Background activity consists of disorganized 9 Hz waveforms noted over both posterior quadrants. 6 to 7 Hz waveforms were seen over both hemispheres. Activation: Unremarkable Sleep: Awake and asleep Impression/Conclusion: This EEG shows mild nonspecific cerebral dysfunction. No electrographic seizures and no epileptiform activity noted. at 0803 Breakthrough seizures most likely related to noncompliance History of epilepsy and seizures History of bipolar disorder History of stroke History of coronary artery disease Hypertension Diabetes Obesity Flu Recurrent seizures Recommend: Will proceed with lumbar puncture since the patient continues to have seizures. Psychiatry evaluation Dilantin 300 mg daily Dilantin level adequate at 13 Add Depakote 500 mg every 6 hours Continue all psychotropics and antidepressants for now Check magnesium and correct all metabolic abnormalities Patient advised that she cannot drive considering the history of seizures. She is aware of [place] law and no driving for at least 6 months after last seizure Neurochecks Seizure precautions Thiamine 100 mg every 8 Target blood sugar is normal range Target hemoglobin A1c less than 5.8 Atorvastatin 40 mg daily keep LDL less than 70 Follow-up as outpatient as needed at 2024 RPT #: [id number] END OF REPORT [facility] 2024-10-23 12:56:00 [facility] ([facility]) Neurology Progress Note REPORT#:[id number] REPORT STATUS: Signed REPORT INITIALIZATION DATE:10/23/24 TIME:1256 PATIENT: HEATHER TURNER UNIT #: [id number] ROOM/BED: [place] [address] : 72 AGE: 54 SEX: F ATTEND: Segundo Toledo MD ADM AUTHOR: Martín Bone MD REPT SERVICE DT/TIME: 10/23/24 1388 * ALL edits or amendments must be made on the electronic/computer document * Subjective Chief Complaint: 54-year-old female with history of diabetes, obesity, hypertension, PR 20 years ago, stroke with subsequent seizure and seizure disorder reduced to follow-up with a neurologist in [place] but has been noncompliant with medication as well as follow-up, bipolar disorder transferred from [facility] for seizure evaluation and management. Patient hospitalized with severe depression and psychosis at a [facility] facility. She reportedly had depression and suicidal ideation after loss of . Patient's mood improved but experienced 9 seizures in the [facility]. She had 3 witnessed seizures and route to [facility] as well. At [facility] she received IV benzodiazepines and IV fosphenytoin with resolution of the seizures. CT brain reported as negative for acute findings. Labs showed elevated lactic acid initially 3.1. Patient tested positive for flu. No meningeal signs. Chest x-ray negative. Received Tamiflu and Zithromax ceftriaxone IV fluids. Transferred here because there is no neurologist at the other hospital. Currently patient reports some congestion but she is fine no seizures. No lateralized neurological deficits. History Additional medical history: HTN, T2DM, PR, CVA with subsequent seizure, and bipolar, radiculopathy Additional surgical history: Cholecystectomy, right foot surgeries, cervical spine laminectomy, lumbar spine laminectomy, appendectomy, tonsillectomy Additional family history: Noncontributory Alcohol use: Denies EtOH use Drug use: Denies recreational drugs Smoking status for patients 13 years old or older: Never Smoker Medication/Allergy-Vaccine Hx Medications: Current Hospital Medications: History - Adult longitudinal Additional medical history: HTN, T2DM, PR, CVA with subsequent seizure, and bipolar, radiculopathy Additional surgical history: Cholecystectomy, right foot surgeries, cervical spine laminectomy, lumbar spine laminectomy, appendectomy, tonsillectomy Additional family history: Noncontributory Alcohol use: Denies EtOH use Drug use: Denies recreational drugs Smoking status for patients 13 years old or older: Current every day smoker Date last smoked: 10/17/24 Packs per day: 1 Pack years: 0 Allergies: Coded Allergies: levetiracetam (From [facility]) (Severe, "MAKES ME FEEL FUNNY" 10/18/24) Review of Systems All systems rev neg: except as marked Review of Systems All systems rev neg: except as marked Objective General VS: Last Documented: Result Date Time Pulse Ox 98 10/23 1200 B/P 127/80 04/ 1200 B/P Mean 97 10/23 1200 Pulse 97 04/ 1200 Resp 21 10/23 1200 Temp 37.0 10/23 1131 FiO2 21 10/23 0650 O2 Delivery Room air 10/23 0650 O2 Flow Rate 2 10/21 2100 PATIENT WEIGHT: Weight (lb): 160 Weight (oz): 5.37 Weight (kg): 72.575 Medications Current Home Medications DIVALPROEX DR (DEPAKOTE DR) 1,000 MG PO BID metFORMIN 500 MG PO DAILY FUROSEMIDE (LASIX) 40 MG PO BID LISINOPRIL (ZESTRIL) 5 MG PO DAILY METOPROLOL SUCC XL (TOPROL XL) 25 MG PO DAILY ACETAMINOPHEN/CODEINE (TYLENOL WITH CODEINE #3 300/30 MG) 2 TAB PO Q6H PRN PRN pain methocarbamoL (ROBAXIN) 500 MG PO QID Active Meds + DC'd Last 24 Hrs Lorazepam (ATIVAN) 1 MG ONCE PRN IV Hydrocodone Bitart/Acetaminophen (NORCO 5/325) 1 TAB Q6H PRN PRN PO Valproate Sodium (Depacon) 500 MG Q6HR IV Sodium Chloride (SODIUM CHLORIDE 0.9%) 100 ML Sodium Chloride (SODIUM CHLORIDE 0.9%) 100 ML .STK-MED ONE IV (DC) Thiamine HCl (THIAMINE HCL) 100 MG DAILY IV Valproate Sodium (Depacon) 500 MG Q6H IV (DC) Sodium Chloride (SODIUM CHLORIDE 0.9% MBP) 100 ML Lorazepam (ATIVAN) 2 MG ONCE ONE IV (CAN) Thiamine HCl (THIAMINE HCL) 100 MG DAILY IV (DC) Lidocaine (Salonpas 4%) 1 PATCH DAILY PRN PRN TOPICAL Budesonide (PULMICORT RESPULES) 0.5 MG RTQ12H NEB Albuterol/Ipratropium (DUONEB) 3 ML RTQ6H NEB Doxycycline Hyclate (VIBRAMYCIN) 100 MG Q12H IV Sodium Chloride (0.9% Sodium Chloride) 250 ML Ceftriaxone Sodium (ROCEPHIN) 1,000 MG Q24H IV Sterile Water (WATER FOR INJECTION) 10 ML Phenytoin Sodium (DILANTIN) 100 MG TID PO Mupirocin (BACTROBAN) 1 APPLIC DAILY NASAL Morphine Sulfate (morphine Sulfate) 2 MG Q4H PRN PRN IV (DC) Guaifenesin (ROBITUSSIN) 200 MG Q4H PRN PRN PO Midodrine (PROAMATINE) 5 MG TID PO Melatonin (Melatonin) 5 MG BEDTIME PO Diphenhydramine HCl (BENADRYL) 25 MG Q4H PRN PRN PO Gabapentin (NEURONTIN) 300 MG TID PO Cyclobenzaprine HCl (FLEXERIL) 10 MG BID PO Acetaminophen/Codeine Phosphate (TYLENOL W CODEINE NO.3) 1 TAB Q6H PRN PRN PO Oseltamivir Phosphate (TAMIFLU) 75 MG Q12HR PO (DC) Polyethylene Glycol (MIRALAX) 17 GM DAILY PO Insulin Human Lispro (Admelog) ASDIRECTED AC HS SUBQ Enoxaparin Sodium (lovENOX) 40 MG Q24H SUBQ Acetaminophen (TYLENOL) 650 MG Q4H PRN PRN PO Bisacodyl (DULCOLAX) 10 MG DAILY PRN PRN PO Dextrose/Water (DEXTROSE 10% IN WATER 250 ML) 125 ML ASDIR PRN IV Dextrose/Water (DEXTROSE 10% IN WATER 250 ML) 250 ML ASDIR PRN IV Glucagon (GLUCAGON) 1 MG ASDIR PRN IM Hydralazine HCl (APRESOLINE) 10 MG Q6H PRN PRN IV Lorazepam (ATIVAN) 2 MG Q6H PRN PRN IV Ondansetron HCl (ZOFRAN) 4 MG Q4H PRN PRN IV Total time spent today on this critically ill patient was 110 minutes Time spent includes counselling and coordination of care including discussions with family, physician, referring physician, staff and consultants.Time spent also includes Patient management by me, Time spent at bedside, Reviewing test results, Reviewing imaging, Reviewing old and new records, Discussing patient care, Documentation in record, Time with family/surrogate... Nutrition asessment: The data set between the solid lines has been imported from the dietitian's assessment. BMI Calculated: 26.6 Nutrition related diagnosis: Overweight Nutrition diagnosis details: BMI 25-29.9 Nutrition problem: Decreased nutrient needs Nutrition etiology: endocrine dysfunction Nutrition signs and symptoms: need for carbohydrate , controlled diet Nutrition prescription: 1) Consistent carb diet - 4 CHO/meal 2) Biweekly weight checks Dietitian name: Malinda Serna RDN, SHERON Assessment completed: 10/21/24 Physical Exam General appearance: awake Head/Eyes: atraumatic ENT: moist mucosal membranes Neck: supple/no meningismus Cardiovascular: regular rate and rhythm Respiratory: no distress Abdomen: soft Extremities: pulses present Musculoskeletal: full range of motion Neuro/CEMETERY COUNSELOR: gait abnormality, alert, oriented X 4, normal speech, EOMI, PERRL, CN II-XII intact, reflexes equal bilat, no motor deficits, no sensory deficits, no cerebellar deficits Neuro comment: Patient alert oriented normal language memory fund of knowledge denies any suicidal or homicidal ideation. EOMI PERRLA Sensation normal in face No facial asymmetry Uvula midline Gag positive Tongue midline Shoulder shrug is normal Motor: Moves all extremities equally 5/5 Sensory symmetric to pinprick Deep and reflexes 2 Plantars are flexor No past-pointing Gait: Abnormal tandem gait Skin: dry, intact Results Findings/Data: Laboratory Tests 10/23 10/23 10/23 10/23 1124 0742 0429 0428 Chemistry Sodium (136 - 145 mmol/L) 140 Potassium (3.4 - 5.0 mmol/L) 4.2 Chloride (98 - 107 mmol/L) 105 Carbon Dioxide (21 - 32 mmol/L) 26 Anion Gap (4 - 15 GAP calc) 9 BUN (7 - 18 MG/DL) 14 Creatinine (0.6 - 1.0 MG/DL) 0.7 Glomerular Filtr Rate (>60 estGFR) >=60 max estimate Glucose (70 - 110 MG/DL) 107 POC Glucose (70 - 110 mg/dL) 114 H 83 Calcium (8.5 - 10.1 MG/DL) 8.7 Phosphorus (2.5 - 4.9 MG/DL) 4.8 Magnesium (1.8 - 2.4 MG/DL) 1.9 Total Bilirubin (0.0 - 1.0 MG/DL) 0.1 AST (15 - 37 Unit/L) 19 ALT (30 - 65 Unit/L) 18 L Total Alk Phosphatase (50 - 136 86 Unit/L) Ammonia (11 - 32 mcMOL/L) 11 Total Protein (6.4 - 8.2 G/DL) 6.5 Albumin (3.4 - 5.0 G/DL) 3.4 Globulin (GM/dL) 3.1 Albumin/Globulin Ratio (1.2 - 2.2 1.1 L RATIO) 10/22 1634 Chemistry POC Glucose (70 - 110 mg/dL) 123 H 121 H Laboratory Tests 10/23 0428 Hematology WBC (3.5 - 11.0 K/mm3) 7.6 RBC (4.70 - 6.10 M/mm3) 3.85 L Hgb (10.4 - 14.9 G/DL) 10.6 Hct (31.5 - 44.1 %) 35.1 MCV (84.5 - 98.6 Fl) 91.2 MCH (27.0 - 34.2 pg) 27.5 MCHC (31.5 - 34.0 G/DL) 30.2 L RDW (11.5 - 14.5 SD) 16.9 H Plt Count (150 - 450 K/mm3) 365 MPV (7.0 - 10.5 fL) 7.90 Neut % (Auto) (40 - 76 %) 57.3 Lymph % (Auto) (20.5 - 51.1 %) 27.6 Nye % (Auto) (1.7 - 9.3 %) 10.0 H Eos % (Auto) (0.0 - 6.0 %) 2.9 Baso % (Auto) (0.0 - 2.0 %) 0.8 Neut # (Auto) (1.8 - 7.6 K/mm3) 4.4 Lymph # (Auto) (0.6 - 3.2 K/mm3) 2.1 Nye # (Auto) (0.3 - 1.1 K/mm3) 0.8 Eos # (Auto) (0.0 - 0.4 K/mm3) 0.2 Baso # (Auto) (0.0 - 0.1 K/mm3) 0.1 Abs Immat Gran (auto) (0.00 - 0.03 x10 3/uL) 0.11 H Immature Gran % (0.0 - 5.0 %) 1.4 Nucleated RBC % (0.0 - 1.0 /100WBC%) 0.0 Diagnosis, Assessment Plan Problem List/A P: 1. Seizures 2. Breakthrough seizure 3. Influenza B Free Text A P: 54-year-old female with history of diabetes, obesity, hypertension, PR 20 years ago, stroke with subsequent seizure and seizure disorder reduced to follow-up with a neurologist in [place] but has been noncompliant with medication as well as follow-up, bipolar disorder transferred from [facility] for seizure evaluation and management. Patient hospitalized with severe depression and psychosis at a [facility] facility. She reportedly had depression and suicidal ideation after loss of . Patient's mood improved but experienced 9 seizures in the [facility] hospital. She had 3 witnessed seizures and route to [facility] as well. At [facility] ER she received IV benzodiazepines and IV fosphenytoin with resolution of the seizures. CT brain reported as negative for acute findings. Labs showed elevated lactic acid initially 3.1. Patient tested positive for flu. No meningeal signs. Chest x- ray negative. Received Tamiflu and Zithromax ceftriaxone IV fluids. Transferred here because there is no neurologist at the other hospital. Currently patient reports some congestion but she is fine no seizures. No lateralized neurological deficits. History Additional medical history: HTN, T2DM, PR, CVA with subsequent seizure, and bipolar, radiculopathy Additional surgical history: Cholecystectomy, right foot surgeries, cervical spine laminectomy, lumbar spine laminectomy, appendectomy, tonsillectomy Additional family history: Noncontributory Alcohol use: Denies EtOH use Drug use: Denies recreational drugs Smoking status for patients 13 years old or older: Never Smoker Medication/Allergy-Vaccine Hx Medications: Current Hospital Medications: EEG: Sleep deprived: no Medications: Current Hospital Medications: Ahfs Category Unknown Sig/Sanchez Start time Last Medication Dose Route Stop Time Status Admin Melatonin 5 MG BEDTIME 10/18 2100 AC (Melatonin) PO 11/17 2058 Anti-Infective Agents Sig/Sanchez Start time Last Medication Dose Route Stop Time Status Admin Oseltamivir Phosphate 75 MG Q12HR 10/18 1000 AC 10/18 (TAMIFLU) PO 10/22 220 1019 Autonomic Drugs Sig/Sanchez Start time Last Medication Dose Route Stop Time Status Admin Cyclobenzaprine HCl 10 MG BID 10/18 1217 AC (FLEXERIL) PO 11/17 1216 Blood Formation,Coagulation Sig/Sanchez Start time Last Medication Dose Route Stop Time Status Admin Enoxaparin Sodium 40 MG Q24H 10/18 0513 AC 10/18 (lovENOX) SUBQ 11/01 0512 0613 Cardiovascular Drugs Sig/Sanchez Start time Last Medication Dose Route Stop Time Status Admin Hydralazine HCl 10 MG Q6H PRN PRN 10/18 0245 AC (APRESOLINE) IV 11/17 0244 Central Nervous System Agents Sig/Sanchez Start time Last Medication Dose Route Stop Time Status Admin Gabapentin 300 MG TID 10/18 1300 AC (NEURONTIN) PO 11/17 1259 Acetaminophen/ 1 TAB Q6H PRN PRN 10/18 1215 AC Codeine Phosphate PO 10/28 1214 (TYLENOL W CODEINE NO.3) Morphine Sulfate 4 MG ONCE ONE 10/18 1215 DC (morphine SULFATE) IV 10/18 1216 Fosphenytoin Sodium 100 MG Q12HR 10/18 1000 CAN (Cerebyx) IV 11/17 0959 Fosphenytoin Sodium 100 MG Q12HR 10/18 1000 AC 10/18 (Cerebyx) IV 11/17 0959 1020 Sodium Chloride 50 ML (0.9% Sodium Chloride) Hydrocodone Bitart/ 1 TAB Q4H PRN PRN 10/18 0345 DC 10/18 Acetaminophen PO 10/28 0344 1019 (NORCO 5/325) Acetaminophen 650 MG Q4H PRN PRN 10/18 0245 AC (TYLENOL) PO 11/17 0244 Lorazepam 2 MG Q6H PRN PRN 10/18 0245 AC (ATIVAN) IV 11/17 0244 Acetaminophen 975 MG X1ED STA 10/18 0136 DC 10/18 (TYLENOL) PO 10/18 0137 0146 Electrolytic, Caloric, And Bhanu Sig/Sanchez Start time Last Medication Dose Route Stop Time Status Admin Dextrose/Water 125 ML ASDIR PRN 10/18 244 AC (DEXTROSE 10% IN IV 11/18 243 WATER 250 ML) Dextrose/Water 250 ML ASDIR PRN 10/18 244 AC (DEXTROSE 10% IN IV 11/18 243 WATER 250 ML) Gastrointestinal Drugs Sig/Sanchez Start time Last Medication Dose Route Stop Time Status Admin Polyethylene Glycol 17 GM DAILY 10/18 0900 AC (MIRALAX) PO 11/17 08 Bisacodyl 10 MG DAILY PRN PRN 10/18 244 AC (DULCOLAX) PO 11/18 243 Ondansetron HCl 4 MG Q4H PRN PRN 10/18 244 AC (ZOFRAN) IV 11/18 243 Hormones And Synthetic Substit Sig/Sanchez Start time Last Medication Dose Route Stop Time Status Admin Insulin Human Lispro See Dose AC HS 10/18 729 AC (Admelog) Insts (1) SUBQ 11/17 728 Glucagon 1 MG ASDIR PRN 10/18 244 AC (GLUCAGON) IM 11/18 243 Dose Instructions: (1)Insulin Human Lispro (Admelog): ASDIRECTED Procedure Date of procedure: 10/18/24 Procedure performed: extended EEG>60m no video Indication: altered mental status, seizure, syncope Procedure description: 18 channels of at least 61-minute EEG recording utilizing international 10/20 system done today. EEG data was digitally acquired and analyzed. EKG strip is abnormal please correlate with twelve-lead EKG. Findings: Background activity consists of disorganized 9 Hz waveforms noted over both posterior quadrants. 6 to 7 Hz waveforms were seen over both hemispheres. Activation: Unremarkable Sleep: Awake and asleep Impression/Conclusion: This EEG shows mild nonspecific cerebral dysfunction. No electrographic seizures and no epileptiform activity noted. at 3612 MRI brain: FINDINGS: Brain: There are no signs of intracranial hemorrhage, acute infarction, cerebral edema, mass occupying lesion, midline shift or intra or extra-axial fluid collections. Minimal chronic white matter small vessel ischemic disease. No abnormal enhancement. No evidence of temporal lobe edema or mesiotemporal sclerosis. Cerebral ventricles: Normal. No ventriculomegaly. Bones: No destructive bone lesions. Paranasal sinuses: Clear paranasal sinuses. Mastoid air cells: Well pneumatized mastoid air cells and middle ear cavities. Grossly unremarkable internal ear structures by limited scope examination. Orbital cavities: No acute orbital abnormalities. Nasal cavity: Smooth right nasal septum deviation, likely constitutional. Vasculature: Normal flow voids are seen in the anterior and posterior cerebral arterial circulation as well as the venous sinuses. Soft tissues: No scalp edema, soft tissue air or radiopaque foreign body. IMPRESSION: 1. No MR explanation for the patient's seizures. 2. Normal evidence of acute intracranial ischemia or hemorrhage. 3. Negative for gliosis, mesiotemporal sclerosis or migrational abnormality. 4. Mild chronic white matter small vessel ischemic disease. EEG:Sleep deprived: no Medications: Current Hospital Medications: fs Category Unknown Sig/Sanchez Start time Last Medication Dose Route Stop Time Status Admin Melatonin 5 MG BEDTIME 10/18 2099 AC 10/20 (Melatonin) PO 11/17 Anti-Infective Agents Sig/Sanchez Start time Last Medication Dose Route Stop Time Status Admin Doxycycline Hyclate 100 MG Q12H 10/20 2000 AC 10/20 (VIBRAMYCIN) IV 10/25 Sodium Chloride 250 ML (0.9% Sodium Chloride) Ceftriaxone Sodium 1,000 MG Q24H 10/20 1800 AC 10/20 (ROCEPHIN) IV 10/25 1758 180 Sterile Water 10 ML (WATER FOR INJECTION) Oseltamivir Phosphate 75 MG Q12HR 10/18 1000 AC 10/20 (TAMIFLU) PO 10/22 2200 2019 Antihistamine Drugs Sig/Sanchez Start time Last Medication Dose Route Stop Time Status Admin Diphenhydramine HCl 25 MG Q4H PRN PRN 10/18 2030 AC 10/20 (BENADRYL) PO 11/17 Autonomic Drugs Sig/Sanchez Start time Last Medication Dose Route Stop Time Status Admin Midodrine 5 MG TID 10/19 1900 AC 10/20 (PROAMATINE) PO 11/18 1859 1701 Cyclobenzaprine HCl 10 MG BID 10/18 1217 AC 10/20 (FLEXERIL) PO 11/17 121 2020 Blood Derivatives Sig/Sanchez Start time Last Medication Dose Route Stop Time Status Admin Albumin Human 25 GM Q8H 10/20 0600 AC 10/20 (Albumin 25%) IV 10/21 0559 2018 Albumin Human 25 GM Q8H 10/19 1900 DC 10/19 (Albumin 25%) IV 10/20 1859 2246 Blood Formation,Coagulation Sig/Sanchez Start time Last Medication Dose Route Stop Time Status Admin Enoxaparin Sodium 40 MG Q24H 10/18 0513 AC 10/20 (lovENOX) SUBQ 11/01 0512 0631 Cardiovascular Drugs Sig/Sanchez Start time Last Medication Dose Route Stop Time Status Admin Hydralazine HCl 10 MG Q6H PRN PRN 10/18 0245 AC (APRESOLINE) IV 11/17 0244 Central Nervous System Agents Sig/Sanchez Start time Last Medication Dose Route Stop Time Status Admin Phenytoin Sodium 100 MG TID 10/20 1700 AC 10/20 (DILANTIN) PO 11/19 1659 1701 Fosphenytoin Sodium 500 MG ONCE ONE 10/20 1245 CAN (Cerebyx) IV 10/20 1246 Phenytoin Sodium 500 MG ONCE ONE 10/20 1215 CAN (DILANTIN) IV 10/20 1216 Morphine Sulfate 2 MG Q4H PRN PRN 10/20 0845 AC 10/20 (morphine Sulfate) IV 10/23 0838 2016 Morphine Sulfate 4 MG Q4H PRN PRN 10/19 1315 DC 10/19 (morphine Sulfate) IV 10/22 1314 2147 Gabapentin 300 MG TID 10/18 1300 AC 10/20 (NEURONTIN) PO 11/17 1259 1701 Acetaminophen/ 1 TAB Q6H PRN PRN 10/18 1215 AC 10/19 Codeine Phosphate PO 10/28 1214 0526 (TYLENOL W CODEINE NO.3) Fosphenytoin Sodium 100 MG Q12HR 10/18 1000 DC 10/20 (Cerebyx) IV 11/17 0959 1024 Sodium Chloride 50 ML (0.9% Sodium Chloride) Acetaminophen 650 MG Q4H PRN PRN 10/18 024 AC 10/20 (TYLENOL) PO 11/17 0244 1702 Lorazepam 2 MG Q6H PRN PRN 10/18 0245 AC 10/20 (ATIVAN) IV 11/17 0244 1113 Electrolytic, Caloric, And Bhanu Sig/Sanchez Start time Last Medication Dose Route Stop Time Status Admin Dextrose/Water 125 ML ASDIR PRN 10/18 244 AC (DEXTROSE 10% IN IV 11/18 243 WATER 250 ML) Dextrose/Water 250 ML ASDIR PRN 10/18 024 AC (DEXTROSE 10% IN IV 05/01 0244 WATER 250 ML) Gastrointestinal Drugs Sig/Sanchez Start time Last Medication Dose Route Stop Time Status Admin Polyethylene Glycol 17 GM DAILY 10/18 0900 AC 10/19 (MIRALAX) PO 11/17 0859 0946 Bisacodyl 10 MG DAILY PRN PRN 10/18 0245 AC (DULCOLAX) PO 11/17 0244 Ondansetron HCl 4 MG Q4H PRN PRN 10/18 0245 AC (ZOFRAN) IV 11/17 0244 Hormones And Synthetic Substit Sig/Sanchez Start time Last Medication Dose Route Stop Time Status Admin Methylprednisolone 125 MG ONCE ONE 10/20 1230 CAN Sodium Succinate IV 10/20 1231 (Solu-MEDROL) Insulin Human Lispro See Dose AC HS 10/18 0730 AC 10/18 (Admelog) Insts (1) SUBQ 11/17 0729 2100 Glucagon 1 MG ASDIR PRN 10/18 0245 AC (GLUCAGON) IM 11/17 0244 Respiratory Tract Agents Sig/Sanchez Start time Last Medication Dose Route Stop Time Status Admin Guaifenesin 200 MG Q4H PRN PRN 10/19 2200 AC 10/19 (ROBITUSSIN) PO 11/18 2159 2258 Skin And Mucous Membrane Agent Sig/Sanchez Start time Last Medication Dose Route Stop Time Status Admin Mupirocin 1 APPLIC DAILY 10/20 1134 AC 10/20 (BACTROBAN) NASAL 10/29 0901 1229 Dose Instructions: (1)Insulin Human Lispro (Admelog): ASDIRECTED Procedure Date of procedure: 10/20/24 Procedure performed: extended EEG>60m no video Indication: seizure Procedure description: 18 channels of at least 61-minute EEG recording utilizing international 10/20 system done today. EEG data was digitally acquired and analyzed. EKG strip is abnormal please correlate with twelve-lead EKG. Findings: Background activity consists of disorganized 9 Hz waveforms noted over both posterior quadrants. 6 to 7 Hz waveforms were seen over both hemispheres. Activation: Unremarkable Sleep: Awake and asleep Impression/Conclusion: This EEG shows mild nonspecific cerebral dysfunction. No electrographic seizures and no epileptiform activity noted. at 0803 Breakthrough seizures most likely related to noncompliance History of epilepsy and seizures History of bipolar disorder History of stroke History of coronary artery disease Hypertension Diabetes Obesity Flu Recurrent seizures Recommend: Will proceed with lumbar puncture since the patient continues to have seizures. Psychiatry evaluation Dilantin 300 mg daily Dilantin level adequate at 13 Add Depakote 500 mg every 6 hours Continue all psychotropics and antidepressants for now Check magnesium and correct all metabolic abnormalities Patient advised that she cannot drive considering the history of seizures. She is aware of [place] law and no driving for at least 6 months after last seizure Neurochecks Seizure precautions Thiamine 100 mg every 8 Target blood sugar is normal range Target hemoglobin A1c less than 5.8 Atorvastatin 40 mg daily keep LDL less than 70 Follow-up as outpatient as needed at 0855 RPT #: [id number] END OF REPORT [facility] 2024-10-23 12:18:00 [facility]) Hospitalist Progress Note REPORT#:[id number] REPORT STATUS: Signed REPORT INITIALIZATION DATE:10/23/24 TIME:1217 PATIENT: HEATHER TURNER UNIT #: [id number] ROOM/BED: [place] [address] : 72 AGE: 54 SEX: F ATTEND: Segundo Toledo MD ADM AUTHOR: Ignacio Langston MD REPT SERVICE DT/TIME: 10/23/24 1218 * ALL edits or amendments must be made on the electronic/computer document * Subjective Chief complaint: Breakthrough seizures HPI: 54 y/o F with PMH of HTN, T2DM, PR 20 yrs ago, no stent, CVA with subsequent seizure, and bipolar was transferred from [facility] for seizure eval and management. Patient hospitalized in [facility] for 2 weeks due to severe depression and SI after loss of ; mood improved but experienced 9 seizures in the [facility] and 3 witnessed en route to [facility] ED. In the ED, she received IV benzodiazepine and IV fosphenytoin with resolution of seizures. CT brain: negative for acute findings. Lab results showed elevated lactic acid initially 3.1. Patient tested positive for flu. CXR: negative. Also received Tamiflu, azithromycin, ceftriaxone, and IV fluids. Vitals stable. Transferred here for neurology service. Currently, patient reports some chest congestion, otherwise no complaints. One-to-one sitters in place. Denies SI/HI. Free Text Subj Notes Free Text Subj Notes: Patient seen at bedside Patient had multiple seizure episodes yesterday evening Patient complaining of pain in the left hand Objective General Medications: Active Meds + DC'd Last 24 Hrs Lorazepam (ATIVAN) 1 MG ONCE PRN IV Hydrocodone Bitart/Acetaminophen (NORCO 5/325) 1 TAB Q6H PRN PRN PO Valproate Sodium (Depacon) 500 MG Q6HR IV Sodium Chloride (SODIUM CHLORIDE 0.9%) 100 ML Sodium Chloride (SODIUM CHLORIDE 0.9%) 100 ML .STK-MED ONE IV (DC) Thiamine HCl (THIAMINE HCL) 100 MG DAILY IV Valproate Sodium (Depacon) 500 MG Q6H IV (DC) Sodium Chloride (SODIUM CHLORIDE 0.9% MBP) 100 ML Lorazepam (ATIVAN) 2 MG ONCE ONE IV (CAN) Thiamine HCl (THIAMINE HCL) 100 MG DAILY IV (DC) Lidocaine (Salonpas 4%) 1 PATCH DAILY PRN PRN TOPICAL Budesonide (PULMICORT RESPULES) 0.5 MG RTQ12H NEB Albuterol/Ipratropium (DUONEB) 3 ML RTQ6H NEB Doxycycline Hyclate (VIBRAMYCIN) 100 MG Q12H IV Sodium Chloride (0.9% Sodium Chloride) 250 ML Ceftriaxone Sodium (ROCEPHIN) 1,000 MG Q24H IV Sterile Water (WATER FOR INJECTION) 10 ML Phenytoin Sodium (DILANTIN) 100 MG TID PO Mupirocin (BACTROBAN) 1 APPLIC DAILY NASAL Morphine Sulfate (morphine Sulfate) 2 MG Q4H PRN PRN IV (DC) Guaifenesin (ROBITUSSIN) 200 MG Q4H PRN PRN PO Midodrine (PROAMATINE) 5 MG TID PO Melatonin (Melatonin) 5 MG BEDTIME PO Diphenhydramine HCl (BENADRYL) 25 MG Q4H PRN PRN PO Gabapentin (NEURONTIN) 300 MG TID PO Cyclobenzaprine HCl (FLEXERIL) 10 MG BID PO Acetaminophen/Codeine Phosphate (TYLENOL W CODEINE NO.3) 1 TAB Q6H PRN PRN PO Oseltamivir Phosphate (TAMIFLU) 75 MG Q12HR PO (DC) Polyethylene Glycol (MIRALAX) 17 GM DAILY PO Insulin Human Lispro (Admelog) ASDIRECTED AC HS SUBQ Enoxaparin Sodium (lovENOX) 40 MG Q24H SUBQ Acetaminophen (TYLENOL) 650 MG Q4H PRN PRN PO Bisacodyl (DULCOLAX) 10 MG DAILY PRN PRN PO Dextrose/Water (DEXTROSE 10% IN WATER 250 ML) 125 ML ASDIR PRN IV Dextrose/Water (DEXTROSE 10% IN WATER 250 ML) 250 ML ASDIR PRN IV Glucagon (GLUCAGON) 1 MG ASDIR PRN IM Hydralazine HCl (APRESOLINE) 10 MG Q6H PRN PRN IV Lorazepam (ATIVAN) 2 MG Q6H PRN PRN IV Ondansetron HCl (ZOFRAN) 4 MG Q4H PRN PRN IV Physical Exam Head/Eyes: atraumatic, clear cornea, EOMI, PERRL Neck: full range of motion, non-tender, normal thyroid Cardiovascular: normal capillary refill, normal heart sounds, regular rate rhythm Respiratory: aerating well, clear to auscultation, symmetric expansion Abdomen: non-tender, normal bowel sounds, soft Neuro/CEMETERY COUNSELOR: alert, oriented X 3, normal speech Skin: dry, intact, normal color Psychiatry: anxious Diagnosis, Assessment Plan Free Text DxA P Notes Free text DxA P notes: 54 y/o F with PMH of HTN, T2DM, PR 20 yrs ago, no stent, CVA with subsequent seizure, and bipolar disorder admitted for the following; 1. Status epilepticus Downgraded to IMU Continue Ativan as needed Patient is presently on Celebyx Patient is also on Dilantin Patient started on Depakote Neurology is following input appreciated MRI of the brain reported Management of seizure per neurologist. Lead Radiation Therapist also consulted appreciate input EEG is done Lumbar puncture a.m. Patient is also on thiamine IV 2. Flu B positive Tamiflu, symptom management 3. Bipolar with depression with suicidal ideation, not active Continue necessary home med Patient evaluated by H CAT and per RN patient is cleared for DC home 4. DM2 SSI 5. Hypertension PRN hydralzine 6. hx of CVA with no residual deficit resume home med 7.. hx of PR, no stents resume home med 8. Hyperlipidemia resume statin tx 9. Chronic back pain s/p lumbar and cervical spine laminectomy Continue home med when available in EMR pain control, reduced morphine dose 10. COPD Patient is on bronchodilator Also on antibiotic 11. Aspiration pneumonia Patient is on antibiotic IV Diet -patient is on carbohydrate diet DVT ppx: Lovenox Full code Dispo Patient is pending lumbar puncture Case discussed with skoog machine operator and neurologist. Case discussed with nursing staff. at 1220 RPT #: [id number] END OF REPORT [facility] 2024-10-22 21:53:00 [facility] Neurology Progress Note REPORT#:[id number] REPORT STATUS: Signed REPORT INITIALIZATION DATE:10/22/24 TIME:2152 PATIENT: HEATHER TURNER UNIT #: [id number] ROOM/BED: [place] [address] : 72 AGE: 54 SEX: F ATTEND: Segundo Toledo MD ADM AUTHOR: Martín Bone MD REPT SERVICE DT/TIME: 10/22/242152 * ALL edits or amendments must be made on the electronic/computer document * Subjective Chief Complaint: 54-year-old female with history of diabetes, obesity, hypertension, PR 20 years ago, stroke with subsequent seizure and seizure disorder reduced to follow-up with a neurologist in [place] but has been noncompliant with medication as well as follow-up, bipolar disorder transferred from [facility] for seizure evaluation and management. Patient hospitalized with severe depression and psychosis at a [facility] facility. She reportedly had depression and suicidal ideation after loss of . Patient's mood improved but experienced 9 seizures in the [facility] hospital. She had 3 witnessed seizures and route to [facility] as well. At [facility] ER she received IV benzodiazepines and IV fosphenytoin with resolution of the seizures. CT brain reported as negative for acute findings. Labs showed elevated lactic acid initially 3.1. Patient tested positive for flu. No meningeal signs. Chest x-ray negative. Received Tamiflu and Zithromax ceftriaxone IV fluids. Transferred here because there is no neurologist at the other hospital. Currently patient reports some congestion but she is fine no seizures. No lateralized neurological deficits. History Additional medical history: HTN, T2DM, PR, CVA with subsequent seizure, and bipolar, radiculopathy Additional surgical history: Cholecystectomy, right foot surgeries, cervical spine laminectomy, lumbar spine laminectomy, appendectomy, tonsillectomy Additional family history: Noncontributory Alcohol use: Denies EtOH use Drug use: Denies recreational drugs Smoking status for patients 13 years old or older: Never Smoker Medication/Allergy-Vaccine Hx Medications: Current Hospital Medications: History - Adult longitudinal Additional medical history: HTN, T2DM, PR, CVA with subsequent seizure, and bipolar, radiculopathy Additional surgical history: Cholecystectomy, right foot surgeries, cervical spine laminectomy, lumbar spine laminectomy, appendectomy, tonsillectomy Additional family history: Noncontributory Alcohol use: Denies EtOH use Drug use: Denies recreational drugs Smoking status for patients 13 years old or older: Current every day smoker Date last smoked: 10/17/24 Packs per day: 1 Pack years: 0 Allergies: Coded Allergies: levetiracetam (From [facility]) (Severe, "MAKES ME FEEL FUNNY" 10/18/24) Review of Systems All systems rev neg: except as marked Review of Systems All systems rev neg: except as marked Objective General VS: Last Documented: Result Date Time Pulse Ox 95 10/23 1931 B/P 123/76 10/23 1931 B/P Mean 92.0 10/23 1931 O2 Delivery Nasal cannula 10/23 1931 Temp 36.7 10/23 1931 Pulse 94 10/23 1931 Resp 17 10/23 1931 FiO2 21 10/22 0926 O2 Flow Rate 2 10/21 2100 PATIENT WEIGHT: Weight (lb): 160 Weight (oz): 5.37 Weight (kg): 72.575 Medications Current Home Medications DIVALPROEX DR (DEPAKOTE DR) 1,000 MG PO BID metFORMIN 500 MG PO DAILY FUROSEMIDE (LASIX) 40 MG PO BID LISINOPRIL (ZESTRIL) 5 MG PO DAILY METOPROLOL SUCC XL (TOPROL XL) 25 MG PO DAILY ACETAMINOPHEN/CODEINE (TYLENOL WITH CODEINE #3 300/30 MG) 2 TAB PO Q6H PRN PRN pain methocarbamoL (ROBAXIN) 500 MG PO QID Active Meds + DC'd Last 24 Hrs Valproate Sodium (Depacon) 500 MG Q6H IV (UNV) Sodium Chloride (SODIUM CHLORIDE 0.9% MBP) 100 ML Lorazepam (ATIVAN) 2 MG ONCE ONE IV (CAN) Thiamine HCl (THIAMINE HCL) 100 MG DAILY IV Ketorolac Tromethamine (TORADOL 30 MG) 15 MG ONCE ONE IV (DC) Lidocaine (Salonpas 4%) 1 PATCH DAILY PRN PRN TOPICAL Budesonide (PULMICORT RESPULES) 0.5 MG RTQ12H NEB Albuterol/Ipratropium (DUONEB) 3 ML RTQ6H NEB Doxycycline Hyclate (VIBRAMYCIN) 100 MG Q12H IV Sodium Chloride (0.9% Sodium Chloride) 250 ML Ceftriaxone Sodium (ROCEPHIN) 1,000 MG Q24H IV Sterile Water (WATER FOR INJECTION) 10 ML Phenytoin Sodium (DILANTIN) 100 MG TID PO Mupirocin (BACTROBAN) 1 APPLIC DAILY NASAL Morphine Sulfate (morphine Sulfate) 2 MG Q4H PRN PRN IV (DC) Guaifenesin (ROBITUSSIN) 200 MG Q4H PRN PRN PO Midodrine (PROAMATINE) 5 MG TID PO Melatonin (Melatonin) 5 MG BEDTIME PO Diphenhydramine HCl (BENADRYL) 25 MG Q4H PRN PRN PO Gabapentin (NEURONTIN) 300 MG TID PO Cyclobenzaprine HCl (FLEXERIL) 10 MG BID PO Acetaminophen/Codeine Phosphate (TYLENOL W CODEINE NO.3) 1 TAB Q6H PRN PRN PO Oseltamivir Phosphate (TAMIFLU) 75 MG Q12HR PO Polyethylene Glycol (MIRALAX) 17 GM DAILY PO Insulin Human Lispro (Admelog) ASDIRECTED AC HS SUBQ Enoxaparin Sodium (lovENOX) 40 MG Q24H SUBQ Acetaminophen (TYLENOL) 650 MG Q4H PRN PRN PO Bisacodyl (DULCOLAX) 10 MG DAILY PRN PRN PO Dextrose/Water (DEXTROSE 10% IN WATER 250 ML) 125 ML ASDIR PRN IV Dextrose/Water (DEXTROSE 10% IN WATER 250 ML) 250 ML ASDIR PRN IV Glucagon (GLUCAGON) 1 MG ASDIR PRN IM Hydralazine HCl (APRESOLINE) 10 MG Q6H PRN PRN IV Lorazepam (ATIVAN) 2 MG Q6H PRN PRN IV Ondansetron HCl (ZOFRAN) 4 MG Q4H PRN PRN IV Total time spent today on this critically ill patient was 110 minutes Time spent includes counselling and coordination of care including discussions with family, physician, referring physician, staff and consultants.Time spent also includes Patient management by me, Time spent at bedside, Reviewing test results, Reviewing imaging, Reviewing old and new records, Discussing patient care, Documentation in record, Time with family/surrogate... Nutrition asessment: The data set between the solid lines has been imported from the dietitian's assessment. BMI Calculated: 26.6 Nutrition related diagnosis: Overweight Nutrition diagnosis details: BMI 25-29.9 Nutrition problem: Decreased nutrient needs Nutrition etiology: endocrine dysfunction Nutrition signs and symptoms: need for carbohydrate , controlled diet Nutrition prescription: 1) Consistent carb diet - 4 CHO/meal 2) Biweekly weight checks Dietitian name: Malinda Serna RDN, SHERON Assessment completed: 10/21/24 Physical Exam General appearance: awake Head/Eyes: atraumatic ENT: moist mucosal membranes Neck: supple/no meningismus Cardiovascular: regular rate and rhythm Respiratory: no distress Abdomen: soft Extremities: pulses present Musculoskeletal: full range of motion Neuro/CEMETERY COUNSELOR: gait abnormality, alert, oriented X 4, normal speech, EOMI, PERRL, CN II-XII intact, reflexes equal bilat, no motor deficits, no sensory deficits, no cerebellar deficits Neuro comment: Patient alert oriented normal language memory fund of knowledge denies any suicidal or homicidal ideation. EOMI PERRLA Sensation normal in face No facial asymmetry Uvula midline Gag positive Tongue midline Shoulder shrug is normal Motor: Moves all extremities equally 5/5 Sensory symmetric to pinprick Deep and reflexes 2 Plantars are flexor No past-pointing Gait: Abnormal tandem gait Skin: dry, intact Results Findings/Data: Laboratory Tests 10/22 1634 1150 0813 Chemistry POC Glucose (70 - 110 mg/dL) 123 H 121 H 101 100 10/22 445 Chemistry Sodium (136 - 145 mmol/L) 140 Potassium (3.4 - 5.0 mmol/L) 4.0 Chloride (98 - 107 mmol/L) 102 Carbon Dioxide (21 - 32 mmol/L) 28 Anion Gap (4 - 15 GAP calc) 10 BUN (7 - 18 MG/DL) 11 Creatinine (0.6 - 1.0 MG/DL) 0.7 Glomerular Filtr Rate (>60 estGFR) >=60 max estimate Glucose (70 - 110 MG/DL) 100 Calcium (8.5 - 10.1 MG/DL) 9.4 Phosphorus (2.5 - 4.9 MG/DL) 4.8 Magnesium (1.8 - 2.4 MG/DL) 1.9 Laboratory Tests 10/22 445 Hematology WBC (3.5 - 11.0 K/mm3) 7.6 RBC (4.70 - 6.10 M/mm3) 4.14 L Hgb (10.4 - 14.9 G/DL) 11.1 Hct (31.5 - 44.1 %) 37.3 MCV (84.5 - 98.6 Fl) 90.1 MCH (27.0 - 34.2 pg) 26.8 L MCHC (31.5 - 34.0 G/DL) 29.8 L RDW (11.5 - 14.5 SD) 16.6 H Plt Count (150 - 450 K/mm3) 340 MPV (7.0 - 10.5 fL) 7.80 Neut % (Auto) (40 - 76 %) 58.8 Lymph % (Auto) (20.5 - 51.1 %) 25.6 Nye % (Auto) (1.7 - 9.3 %) 10.2 H Eos % (Auto) (0.0 - 6.0 %) 2.5 Baso % (Auto) (0.0 - 2.0 %) 0.7 Neut # (Auto) (1.8 - 7.6 K/mm3) 4.5 Lymph # (Auto) (0.6 - 3.2 K/mm3) 1.9 Nye # (Auto) (0.3 - 1.1 K/mm3) 0.8 Eos # (Auto) (0.0 - 0.4 K/mm3) 0.2 Baso # (Auto) (0.0 - 0.1 K/mm3) 0.1 Abs Immat Gran (auto) (0.00 - 0.03 x10 3/uL) 0.17 H Immature Gran % (0.0 - 5.0 %) 2.2 Nucleated RBC % (0.0 - 1.0 /100WBC%) 0.0 Radiology Data: Recent Impressions: RADIOLOGY - XR FOREARM 2 VIEWS RT 10/21 2299 Report Impression - Status: SIGNED Entered: 10/21/2024 2316 IMPRESSION: No fracture or dislocation. Impression By: Germán Cote M.D. RADIOLOGY - XR ELBOW 3+V RT 10/21 2299 Report Impression - Status: SIGNED Entered: 10/21/20242308 IMPRESSION: No fracture or dislocation. Impression By: Germán Cote M.D. Results: labs reviewed Diagnosis, Assessment Plan Free Text A P: 54-year-old female with history of diabetes, obesity, hypertension, PR 20 years ago, stroke with subsequent seizure and seizure disorder reduced to follow-up with a neurologist in [place] but has been noncompliant with medication as well as follow-up, bipolar disorder transferred from [facility] for seizure evaluation and management. Patient hospitalized with severe depression and psychosis at a [facility] facility. She reportedly had depression and suicidal ideation after loss of . Patient's mood improved but experienced 9 seizures in the [facility] hospital. She had 3 witnessed seizures and route to [facility] as well. At [facility] ER she received IV benzodiazepines and IV fosphenytoin with resolution of the seizures. CT brain reported as negative for acute findings. Labs showed elevated lactic acid initially 3.1. Patient tested positive for flu. No meningeal signs. Chest x- ray negative. Received Tamiflu and Zithromax ceftriaxone IV fluids. Transferred here because there is no neurologist at the other hospital. Currently patient reports some congestion but she is fine no seizures. No lateralized neurological deficits. History Additional medical history: HTN, T2DM, PR, CVA with subsequent seizure, and bipolar, radiculopathy Additional surgical history: Cholecystectomy, right foot surgeries, cervical spine laminectomy, lumbar spine laminectomy, appendectomy, tonsillectomy Additional family history: Noncontributory Alcohol use: Denies EtOH use Drug use: Denies recreational drugs Smoking status for patients 13 years old or older: Never Smoker Medication/Allergy-Vaccine Hx Medications: Current Hospital Medications: EEG: Sleep deprived: no Medications: Current Hospital Medications: Ahfs Category Unknown Sig/Sanchez Start time Last Medication Dose Route Stop Time Status Admin Melatonin 5 MG BEDTIME 10/18 2100 AC (Melatonin) PO 11/17 2058 Anti-Infective Agents Sig/Sanchez Start time Last Medication Dose Route Stop Time Status Admin Oseltamivir Phosphate 75 MG Q12HR 10/18 1000 AC 10/18 (TAMIFLU) PO 10/22 2200 1019 Autonomic Drugs Sig/Sanchez Start time Last Medication Dose Route Stop Time Status Admin Cyclobenzaprine HCl 10 MG BID 10/18 1217 AC (FLEXERIL) PO 11/17 1216 Blood Formation,Coagulation Sig/Sanchez Start time Last Medication Dose Route Stop Time Status Admin Enoxaparin Sodium 40 MG Q24H 10/18 0513 AC 10/18 (lovENOX) SUBQ 11/01 0512 0613 Cardiovascular Drugs Sig/Sanchez Start time Last Medication Dose Route Stop Time Status Admin Hydralazine HCl 10 MG Q6H PRN PRN 10/18 0245 AC (APRESOLINE) IV 11/17 0244 Central Nervous System Agents Sig/Sanchez Start time Last Medication Dose Route Stop Time Status Admin Gabapentin 300 MG TID 10/18 1300 AC (NEURONTIN) PO 11/17 1259 Acetaminophen/ 1 TAB Q6H PRN PRN 10/18 1215 AC Codeine Phosphate PO 10/28 1214 (TYLENOL W CODEINE NO.3) Morphine Sulfate 4 MG ONCE ONE 10/18 1215 DC (morphine SULFATE) IV 10/18 1216 Fosphenytoin Sodium 100 MG Q12HR 10/18 1000 CAN (Cerebyx) IV 11/17 0959 Fosphenytoin Sodium 100 MG Q12HR 10/18 1000 AC 10/18 (Cerebyx) IV 11/17 0959 1020 Sodium Chloride 50 ML (0.9% Sodium Chloride) Hydrocodone Bitart/ 1 TAB Q4H PRN PRN 10/18 0345 DC 10/18 Acetaminophen PO 10/28 0344 1019 (NORCO 5/325) Acetaminophen 650 MG Q4H PRN PRN 10/18 0245 AC (TYLENOL) PO 11/17 0244 Lorazepam 2 MG Q6H PRN PRN 10/18 0245 AC (ATIVAN) IV 11/17 0244 Acetaminophen 975 MG X1ED STA 10/18 0136 DC 10/18 (TYLENOL) PO 10/18 0137 0146 Electrolytic, Caloric, And Bhanu Sig/Sanchez Start time Last Medication Dose Route Stop Time Status Admin Dextrose/Water 125 ML ASDIR PRN 10/18 0245 AC (DEXTROSE 10% IN IV 11/17 024 WATER 250 ML) Dextrose/Water 250 ML ASDIR PRN 10/18 0245 AC (DEXTROSE 10% IN IV 11/17 024 WATER 250 ML) Gastrointestinal Drugs Sig/Sanchez Start time Last Medication Dose Route Stop Time Status Admin Polyethylene Glycol 17 GM DAILY 10/18 0900 AC (MIRALAX) PO 11/17 0859 Bisacodyl 10 MG DAILY PRN PRN 10/18 024 AC (DULCOLAX) PO 11/17 0244 Ondansetron HCl 4 MG Q4H PRN PRN 10/18 024 AC (ZOFRAN) IV 11/17 0244 Hormones And Synthetic Substit Sig/Sanchez Start time Last Medication Dose Route Stop Time Status Admin Insulin Human Lispro See Dose AC HS 10/18 0730 AC (Admelog) Insts (1) SUBQ 11/17 0729 Glucagon 1 MG ASDIR PRN 10/18 024 AC (GLUCAGON) IM 11/17 0244 Dose Instructions: (1)Insulin Human Lispro (Admelog): ASDIRECTED Procedure Date of procedure: 10/18/24 Procedure performed: extended EEG>60m no video Indication: altered mental status, seizure, syncope Procedure description: 18 channels of at least 61-minute EEG recording utilizing international 10/20 system done today. EEG data was digitally acquired and analyzed. EKG strip is abnormal please correlate with twelve-lead EKG. Findings: Background activity consists of disorganized 9 Hz waveforms noted over both posterior quadrants. 6 to 7 Hz waveforms were seen over both hemispheres. Activation: Unremarkable Sleep: Awake and asleep Impression/Conclusion: This EEG shows mild nonspecific cerebral dysfunction. No electrographic seizures and no epileptiform activity noted. at 2124 MRI brain: FINDINGS: Brain: There are no signs of intracranial hemorrhage, acute infarction, cerebral edema, mass occupying lesion, midline shift or intra or extra-axial fluid collections. Minimal chronic white matter small vessel ischemic disease. No abnormal enhancement. No evidence of temporal lobe edema or mesiotemporal sclerosis. Cerebral ventricles: Normal. No ventriculomegaly. Bones: No destructive bone lesions. Paranasal sinuses: Clear paranasal sinuses. Mastoid air cells: Well pneumatized mastoid air cells and middle ear cavities. Grossly unremarkable internal ear structures by limited scope examination. Orbital cavities: No acute orbital abnormalities. Nasal cavity: Smooth right nasal septum deviation, likely constitutional. Vasculature: Normal flow voids are seen in the anterior and posterior cerebral arterial circulation as well as the venous sinuses. Soft tissues: No scalp edema, soft tissue air or radiopaque foreign body. IMPRESSION: 1. No MR explanation for the patient's seizures. 2. Normal evidence of acute intracranial ischemia or hemorrhage. 3. Negative for gliosis, mesiotemporal sclerosis or migrational abnormality. 4. Mild chronic white matter small vessel ischemic disease. EEG:Sleep deprived: no Medications: Current Hospital Medications: fs Category Unknown Sig/Sanchez Start time Last Medication Dose Route Stop Time Status Admin Melatonin 5 MG BEDTIME 10/18 2099 AC 10/20 (Melatonin) PO 11/17 Anti-Infective Agents Sig/Sanchez Start time Last Medication Dose Route Stop Time Status Admin Doxycycline Hyclate 100 MG Q12H 10/20 2000 AC 10/20 (VIBRAMYCIN) IV 10/25 Sodium Chloride 250 ML (0.9% Sodium Chloride) Ceftriaxone Sodium 1,000 MG Q24H 10/20 1800 AC 10/20 (ROCEPHIN) IV 10/25 Sterile Water 10 ML (WATER FOR INJECTION) Oseltamivir Phosphate 75 MG Q12HR 10/18 1000 AC 10/20 (TAMIFLU) PO 10/22 Antihistamine Drugs Sig/Sanchez Start time Last Medication Dose Route Stop Time Status Admin Diphenhydramine HCl 25 MG Q4H PRN PRN 10/18 2030 AC 10/20 (BENADRYL) PO 11/17 Autonomic Drugs Sig/Sanchez Start time Last Medication Dose Route Stop Time Status Admin Midodrine 5 MG TID 10/19 1900 AC 10/20 (PROAMATINE) PO 05/02 1859 1701 Cyclobenzaprine HCl 10 MG BID 10/18 1217 AC 10/20 (FLEXERIL) PO 11/17 1216 2020 Blood Derivatives Sig/Sanchez Start time Last Medication Dose Route Stop Time Status Admin Albumin Human 25 GM Q8H 10/20 0600 AC 10/20 (Albumin 25%) IV 10/21 0559 2018 Albumin Human 25 GM Q8H 10/19 1900 DC 10/19 (Albumin 25%) IV 10/20 1859 2246 Blood Formation,Coagulation Sig/Sanchez Start time Last Medication Dose Route Stop Time Status Admin Enoxaparin Sodium 40 MG Q24H 10/18 0513 AC 10/20 (lovENOX) SUBQ 11/01 0512 0631 Cardiovascular Drugs Sig/Sanchez Start time Last Medication Dose Route Stop Time Status Admin Hydralazine HCl 10 MG Q6H PRN PRN 10/18 0245 AC (APRESOLINE) IV 11/17 0244 Central Nervous System Agents Sig/Sanchez Start time Last Medication Dose Route Stop Time Status Admin Phenytoin Sodium 100 MG TID 10/20 1700 AC 10/20 (DILANTIN) PO 11/19 1659 1701 Fosphenytoin Sodium 500 MG ONCE ONE 10/20 1245 CAN (Cerebyx) IV 10/20 1246 Phenytoin Sodium 500 MG ONCE ONE 10/20 1215 CAN (DILANTIN) IV 10/20 1216 Morphine Sulfate 2 MG Q4H PRN PRN 10/20 0845 AC 10/20 (morphine Sulfate) IV 10/23 0838 2017 Morphine Sulfate 4 MG Q4H PRN PRN 10/19 1315 DC 10/19 (morphine Sulfate) IV 10/22 1314 2147 Gabapentin 300 MG TID 10/18 1300 AC 10/20 (NEURONTIN) PO 11/17 1259 1701 Acetaminophen/ 1 TAB Q6H PRN PRN 10/18 1215 AC 10/19 Codeine Phosphate PO 10/28 1214 0526 (TYLENOL W CODEINE NO.3) Fosphenytoin Sodium 100 MG Q12HR 10/18 1000 DC 10/20 (Cerebyx) IV 11/17 0959 1024 Sodium Chloride 50 ML (0.9% Sodium Chloride) Acetaminophen 650 MG Q4H PRN PRN 10/18 0245 AC 10/20 (TYLENOL) PO 11/17 0244 1702 Lorazepam 2 MG Q6H PRN PRN 10/18 0245 AC 10/20 (ATIVAN) IV 11/17 0244 1113 Electrolytic, Caloric, And Bhanu Sig/Sanchez Start time Last Medication Dose Route Stop Time Status Admin Dextrose/Water 125 ML ASDIR PRN 10/18 0245 AC (DEXTROSE 10% IN IV 11/18 243 WATER 250 ML) Dextrose/Water 250 ML ASDIR PRN 10/18 024 AC (DEXTROSE 10% IN IV 11/17 024 WATER 250 ML) Gastrointestinal Drugs Sig/Sanchez Start time Last Medication Dose Route Stop Time Status Admin Polyethylene Glycol 17 GM DAILY 10/18 0900 AC 10/19 (MIRALAX) PO 11/17 0859 0946 Bisacodyl 10 MG DAILY PRN PRN 10/18 024 AC (DULCOLAX) PO 11/17 0244 Ondansetron HCl 4 MG Q4H PRN PRN 10/18 0245 AC (ZOFRAN) IV 11/17 0244 Hormones And Synthetic Substit Sig/Sanchez Start time Last Medication Dose Route Stop Time Status Admin Methylprednisolone 125 MG ONCE ONE 10/20 1230 CAN Sodium Succinate IV 10/20 1231 (Solu-MEDROL) Insulin Human Lispro See Dose AC HS 10/18 0730 AC 10/18 (Admelog) Insts (1) SUBQ 11/17 0729 2100 Glucagon 1 MG ASDIR PRN 10/18 024 AC (GLUCAGON) IM 11/17 0244 Respiratory Tract Agents Sig/Sanchez Start time Last Medication Dose Route Stop Time Status Admin Guaifenesin 200 MG Q4H PRN PRN 10/19 2200 AC 10/19 (ROBITUSSIN) PO 11/18 2159 2258 Skin And Mucous Membrane Agent Sig/Sanchez Start time Last Medication Dose Route Stop Time Status Admin Mupirocin 1 APPLIC DAILY 10/20 1134 AC 10/20 (BACTROBAN) NASAL 10/29 0901 1229 Dose Instructions: (1)Insulin Human Lispro (Admelog): ASDIRECTED Procedure Date of procedure: 10/20/24 Procedure performed: extended EEG>60m no video Indication: seizure Procedure description: 18 channels of at least 61-minute EEG recording utilizing international 10/20 system done today. EEG data was digitally acquired and analyzed. EKG strip is abnormal please correlate with twelve-lead EKG. Findings: Background activity consists of disorganized 9 Hz waveforms noted over both posterior quadrants. 6 to 7 Hz waveforms were seen over both hemispheres. Activation: Unremarkable Sleep: Awake and asleep Impression/Conclusion: This EEG shows mild nonspecific cerebral dysfunction. No electrographic seizures and no epileptiform activity noted. at 0803 Breakthrough seizures most likely related to noncompliance History of epilepsy and seizures History of bipolar disorder History of stroke History of coronary artery disease Hypertension Diabetes Obesity Flu Recurrent seizures Recommend: Will proceed with lumbar puncture since the patient continues to have seizures. Psychiatry evaluation Dilantin 300 mg daily Dilantin level adequate at 13 Add Depakote 500 mg every 6 hours Continue all psychotropics and antidepressants for now Check magnesium and correct all metabolic abnormalities Patient advised that she cannot drive considering the history of seizures. She is aware of [place] law and no driving for at least 6 months after last seizure Neurochecks Seizure precautions Thiamine 100 mg every 8 Target blood sugar is normal range Target hemoglobin A1c less than 5.8 Atorvastatin 40 mg daily keep LDL less than 70 Follow-up as outpatient as needed at 2155 RPT #: [id number] END OF REPORT [facility] 2024-10-22 13:04:00 [facility] ([facility]) Hospitalist Progress Note REPORT#:[id number] REPORT STATUS: Signed REPORT INITIALIZATION DATE:10/22/24 TIME:1304 PATIENT: HEATHER TURNER UNIT #: [id number] ROOM/BED: [place] [address] : 72 AGE: 54 SEX: F ATTEND: Segundo Toledo MD ADM AUTHOR: Ignacio Langston MD REPT SERVICE DT/TIME: 10/22/24 1304 * ALL edits or amendments must be made on the electronic/computer document * Subjective Chief complaint: Breakthrough seizures HPI: 54 y/o F with PMH of HTN, T2DM, PR 20 yrs ago, no stent, CVA with subsequent seizure, and bipolar was transferred from [facility] for seizure eval and management. Patient hospitalized in [facility] for 2 weeks due to severe depression and SI after loss of ; mood improved but experienced 9 seizures in the [facility] and 3 witnessed en route to [facility] ED. In the ED, she received IV benzodiazepine and IV fosphenytoin with resolution of seizures. CT brain: negative for acute findings. Lab results showed elevated lactic acid initially 3.1. Patient tested positive for flu. CXR: negative. Also received Tamiflu, azithromycin, ceftriaxone, and IV fluids. Vitals stable. Transferred here for neurology service. Currently, patient reports some chest congestion, otherwise no complaints. One-to-one sitters in place. Denies SI/HI. Free Text Subj Notes Free Text Subj Notes: Patient seen at bedside Patient is sleepy Objective General Medications: Active Meds + DC'd Last 24 Hrs Ketorolac Tromethamine (TORADOL 30 MG) 15 MG ONCE ONE IV (DC) Lidocaine (Salonpas 4%) 1 PATCH DAILY PRN PRN TOPICAL Budesonide (PULMICORT RESPULES) 0.5 MG RTQ12H NEB Albuterol/Ipratropium (DUONEB) 3 ML RTQ6H NEB Doxycycline Hyclate (VIBRAMYCIN) 100 MG Q12H IV Sodium Chloride (0.9% Sodium Chloride) 250 ML Ceftriaxone Sodium (ROCEPHIN) 1,000 MG Q24H IV Sterile Water (WATER FOR INJECTION) 10 ML Phenytoin Sodium (DILANTIN) 100 MG TID PO Mupirocin (BACTROBAN) 1 APPLIC DAILY NASAL Morphine Sulfate (morphine Sulfate) 2 MG Q4H PRN PRN IV Guaifenesin (ROBITUSSIN) 200 MG Q4H PRN PRN PO Midodrine (PROAMATINE) 5 MG TID PO Melatonin (Melatonin) 5 MG BEDTIME PO Diphenhydramine HCl (BENADRYL) 25 MG Q4H PRN PRN PO Gabapentin (NEURONTIN) 300 MG TID PO Cyclobenzaprine HCl (FLEXERIL) 10 MG BID PO Acetaminophen/Codeine Phosphate (TYLENOL W CODEINE NO.3) 1 TAB Q6H PRN PRN PO Oseltamivir Phosphate (TAMIFLU) 75 MG Q12HR PO Polyethylene Glycol (MIRALAX) 17 GM DAILY PO Insulin Human Lispro (Admelog) ASDIRECTED AC HS SUBQ Enoxaparin Sodium (lovENOX) 40 MG Q24H SUBQ Acetaminophen (TYLENOL) 650 MG Q4H PRN PRN PO Bisacodyl (DULCOLAX) 10 MG DAILY PRN PRN PO Dextrose/Water (DEXTROSE 10% IN WATER 250 ML) 125 ML ASDIR PRN IV Dextrose/Water (DEXTROSE 10% IN WATER 250 ML) 250 ML ASDIR PRN IV Glucagon (GLUCAGON) 1 MG ASDIR PRN IM Hydralazine HCl (APRESOLINE) 10 MG Q6H PRN PRN IV Lorazepam (ATIVAN) 2 MG Q6H PRN PRN IV Ondansetron HCl (ZOFRAN) 4 MG Q4H PRN PRN IV Physical Exam General appearance: sleepy Head/Eyes: atraumatic, clear cornea, EOMI, PERRL Neck: full range of motion, non-tender, normal thyroid Cardiovascular: normal capillary refill, normal heart sounds, regular rate rhythm Respiratory: aerating well, clear to auscultation, symmetric expansion Abdomen: non-tender, normal bowel sounds, soft Neuro/CEMETERY COUNSELOR: alert, oriented X 3, normal speech Skin: dry, intact, normal color Diagnosis, Assessment Plan Free Text DxA P Notes Free text DxA P notes: 54 y/o F with PMH of HTN, T2DM, PR 20 yrs ago, no stent, CVA with subsequent seizure, and bipolar disorder admitted for the following; 1. Status epilepticus Downgraded to IMU Continue Ativan as needed Patient is presently on Celebyx Patient is also on Dilantin Neurology is following input appreciated MRI of the brain reported Management of seizure per neurologist. Lead Radiation Therapist also consulted appreciate input EEG is done 2. Flu B positive Tamiflu, symptom management 3. Bipolar with depression with suicidal ideation, not active Continue necessary home med Patient evaluated by H CAT and per RN patient is cleared for DC home 4. DM2 SSI 5. Hypertension PRN hydralzine 6. hx of CVA with no residual deficit resume home med 7.. hx of PR, no stents resume home med 8. Hyperlipidemia resume statin tx 9. Chronic back pain s/p lumbar and cervical spine laminectomy Continue home med when available in EMR pain control, reduced morphine dose 10. COPD Patient is on bronchodilator Also on antibiotic 11. Aspiration pneumonia Patient is on antibiotic IV Diet -patient is on carbohydrate diet DVT ppx: Lovenox Full code Dispo Possible DC in 24 to 48 hours Case discussed with skoog machine operator and neurologist. Case discussed with nursing staff. at 1311 RPT #: [id number] END OF REPORT [facility] 2024-10-21 20:52:00 [facility]) Neurology Progress Note REPORT#:[id number] REPORT STATUS: Signed REPORT INITIALIZATION DATE:10/21/24 TIME:2051 PATIENT: HEATHER TURNER UNIT #: [id number] ROOM[address]BED: [address] : [birth year] AGE: 54 SEX: F ATTEND: Segundo Toledo MD ADM AUTHOR: Martín Bone MD REPT SERVICE DT/TIME: 10/21/242051 * ALL edits or amendments must be made on the electronic/computer document * Subjective Chief Complaint: 54-year-old female with history of diabetes, obesity, hypertension, PR 20 years ago, stroke with subsequent seizure and seizure disorder reduced to follow-up with a neurologist in [place] but has been noncompliant with medication as well as follow-up, bipolar disorder transferred from [facility] for seizure evaluation and management. Patient hospitalized with severe depression and psychosis at a [facility] facility. She reportedly had depression and suicidal ideation after loss of . Patient's mood improved but experienced 9 seizures in the [facility] hospital. She had 3 witnessed seizures and route to [facility] as well. At [facility] ER she received IV benzodiazepines and IV fosphenytoin with resolution of the seizures. CT brain reported as negative for acute findings. Labs showed elevated lactic acid initially 3.1. Patient tested positive for flu. No meningeal signs. Chest x-ray negative. Received Tamiflu and Zithromax ceftriaxone IV fluids. Transferred here because there is no neurologist at the other hospital. Currently patient reports some congestion but she is fine no seizures. No lateralized neurological deficits. History Additional medical history: HTN, T2DM, PR, CVA with subsequent seizure, and bipolar, radiculopathy Additional surgical history: Cholecystectomy, right foot surgeries, cervical spine laminectomy, lumbar spine laminectomy, appendectomy, tonsillectomy Additional family history: Noncontributory Alcohol use: Denies EtOH use Drug use: Denies recreational drugs Smoking status for patients 13 years old or older: Never Smoker Medication/Allergy-Vaccine Hx Medications: Current Hospital Medications: History - Adult longitudinal Additional medical history: HTN, T2DM, PR, CVA with subsequent seizure, and bipolar, radiculopathy Additional surgical history: Cholecystectomy, right foot surgeries, cervical spine laminectomy, lumbar spine laminectomy, appendectomy, tonsillectomy Additional family history: Noncontributory Alcohol use: Denies EtOH use Drug use: Denies recreational drugs Smoking status for patients 13 years old or older: Current every day smoker Date last smoked: 10/17/24 Packs per day: 1 Pack years: 0 Allergies: Coded Allergies: levetiracetam (From [facility]) (Severe, "MAKES ME FEEL FUNNY" 10/18/24) Review of Systems All systems rev neg: except as marked Review of Systems All systems rev neg: except as marked Unable to obtain due to: AMS Objective General VS: Last Documented: Result Date Time Pulse Ox 98 10/22 2015 B/P 136/72 10/22 2015 B/P Mean 98 10/22 2015 Pulse 90 10/22 2015 Resp 16 10/22 2015 Temp 37.1 10/22 1999 FiO2 28 10/21 0800 O2 Delivery Nasal cannula 10/21 0800 O2 Flow Rate 2 10/21 0800 PATIENT WEIGHT: Weight (lb): 160 Weight (oz): 5.37 Weight (kg): 72.575 Medications Current Home Medications DIVALPROEX DR (DEPAKOTE DR) 1,000 MG PO BID metFORMIN 500 MG PO DAILY FUROSEMIDE (LASIX) 40 MG PO BID LISINOPRIL (ZESTRIL) 5 MG PO DAILY METOPROLOL SUCC XL (TOPROL XL) 25 MG PO DAILY ACETAMINOPHEN/CODEINE (TYLENOL WITH CODEINE #3 300/30 MG) 2 TAB PO Q6H PRN PRN pain methocarbamoL (ROBAXIN) 500 MG PO QID Active Meds + DC'd Last 24 Hrs Budesonide (PULMICORT RESPULES) 0.5 MG RTQ12H NEB Albuterol/Ipratropium (DUONEB) 3 ML RTQ6H NEB Doxycycline Hyclate (VIBRAMYCIN) 100 MG Q12H IV Sodium Chloride (0.9% Sodium Chloride) 250 ML Ceftriaxone Sodium (ROCEPHIN) 1,000 MG Q24H IV Sterile Water (WATER FOR INJECTION) 10 ML Phenytoin Sodium (DILANTIN) 100 MG TID PO Mupirocin (BACTROBAN) 1 APPLIC DAILY NASAL Morphine Sulfate (morphine Sulfate) 2 MG Q4H PRN PRN IV Albumin Human (Albumin 25%) 25 GM Q8H IV (DC) Guaifenesin (ROBITUSSIN) 200 MG Q4H PRN PRN PO Midodrine (PROAMATINE) 5 MG TID PO Melatonin (Melatonin) 5 MG BEDTIME PO Diphenhydramine HCl (BENADRYL) 25 MG Q4H PRN PRN PO Gabapentin (NEURONTIN) 300 MG TID PO Cyclobenzaprine HCl (FLEXERIL) 10 MG BID PO Acetaminophen/Codeine Phosphate (TYLENOL W CODEINE NO.3) 1 TAB Q6H PRN PRN PO Oseltamivir Phosphate (TAMIFLU) 75 MG Q12HR PO Polyethylene Glycol (MIRALAX) 17 GM DAILY PO Insulin Human Lispro (Admelog) ASDIRECTED AC HS SUBQ Enoxaparin Sodium (lovENOX) 40 MG Q24H SUBQ Acetaminophen (TYLENOL) 650 MG Q4H PRN PRN PO Bisacodyl (DULCOLAX) 10 MG DAILY PRN PRN PO Dextrose/Water (DEXTROSE 10% IN WATER 250 ML) 125 ML ASDIR PRN IV Dextrose/Water (DEXTROSE 10% IN WATER 250 ML) 250 ML ASDIR PRN IV Glucagon (GLUCAGON) 1 MG ASDIR PRN IM Hydralazine HCl (APRESOLINE) 10 MG Q6H PRN PRN IV Lorazepam (ATIVAN) 2 MG Q6H PRN PRN IV Ondansetron HCl (ZOFRAN) 4 MG Q4H PRN PRN IV Total time spent today on this critically ill patient was 110 minutes Time spent includes counselling and coordination of care including discussions with family, physician, referring physician, staff and consultants.Time spent also includes Patient management by me, Time spent at bedside, Reviewing test results, Reviewing imaging, Reviewing old and new records, Discussing patient care, Documentation in record, Time with family/surrogate... Nutrition asessment: The data set between the solid lines has been imported from the dietitian's assessment. BMI Calculated: 26.6 Nutrition related diagnosis: Overweight Nutrition diagnosis details: BMI 25-29.9 Nutrition problem: Decreased nutrient needs Nutrition etiology: endocrine dysfunction Nutrition signs and symptoms: need for carbohydrate , controlled diet Nutrition prescription: 1) Consistent carb diet - 4 CHO/meal 2) Biweekly weight checks Dietitian name: Malinda Serna RDN, SHERON Assessment completed: 10/21/24 Physical Exam General appearance: altered mental status, awake Head/Eyes: atraumatic ENT: moist mucosal membranes Neck: supple/no meningismus Cardiovascular: regular rate and rhythm Respiratory: no distress Abdomen: soft Extremities: pulses present Musculoskeletal: full range of motion Neuro/CEMETERY COUNSELOR: gait abnormality, alert, oriented X 4, normal speech, EOMI, PERRL, CN II-XII intact, reflexes equal bilat, no motor deficits, no sensory deficits, no cerebellar deficits Neuro comment: Patient alert oriented normal language memory fund of knowledge denies any suicidal or homicidal ideation. EOMI PERRLA Sensation normal in face No facial asymmetry Uvula midline Gag positive Tongue midline Shoulder shrug is normal Motor: Moves all extremities equally 5/5 Sensory symmetric to pinprick Deep and reflexes 2 Plantars are flexor No past-pointing Gait: Abnormal tandem gait Skin: dry, intact Results Findings/Data: Laboratory Tests 10/21 10/21 10/21 10/21 1649 1147 0826 0017 Chemistry Sodium (136 - 145 mmol/L) 139 Potassium (3.4 - 5.0 mmol/L) 3.8 Chloride (98 - 107 mmol/L) 103 Carbon Dioxide (21 - 32 mmol/L) 28 Anion Gap (4 - 15 GAP calc) 8 BUN (7 - 18 MG/DL) 10 Creatinine (0.6 - 1.0 MG/DL) 0.9 Glomerular Filtr Rate (>60 estGFR) >=60 max estimate Glucose (70 - 110 MG/DL) 136 H POC Glucose (70 - 110 mg/dL) 99 97 110 Calcium (8.5 - 10.1 MG/DL) 8.7 Phosphorus (2.5 - 4.9 MG/DL) 4.4 Magnesium (1.8 - 2.4 MG/DL) 2.0 Laboratory Tests 10/21 0017 Hematology WBC (3.5 - 11.0 K/mm3) 6.7 RBC (4.70 - 6.10 M/mm3) 4.15 L Hgb (10.4 - 14.9 G/DL) 11.3 Hct (31.5 - 44.1 %) 36.8 MCV (84.5 - 98.6 Fl) 88.7 MCH (27.0 - 34.2 pg) 27.2 MCHC (31.5 - 34.0 G/DL) 30.7 L RDW (11.5 - 14.5 SD) 16.3 H Plt Count (150 - 450 K/mm3) 317 MPV (7.0 - 10.5 fL) 7.60 Neut % (Auto) (40 - 76 %) 58.5 Lymph % (Auto) (20.5 - 51.1 %) 23.6 Nye % (Auto) (1.7 - 9.3 %) 10.6 H Eos % (Auto) (0.0 - 6.0 %) 2.1 Baso % (Auto) (0.0 - 2.0 %) 0.9 Neut # (Auto) (1.8 - 7.6 K/mm3) 3.9 Lymph # (Auto) (0.6 - 3.2 K/mm3) 1.6 Nye # (Auto) (0.3 - 1.1 K/mm3) 0.7 Eos # (Auto) (0.0 - 0.4 K/mm3) 0.1 Baso # (Auto) (0.0 - 0.1 K/mm3) 0.1 Abs Immat Gran (auto) (0.00 - 0.03 x10 3/uL) 0.29 H Immature Gran % (0.0 - 5.0 %) 4.3 Nucleated RBC % (0.0 - 1.0 /100WBC%) 0.0 Results: labs reviewed Diagnosis, Assessment Plan Free Text A P: 54-year-old female with history of diabetes, obesity, hypertension, PR 20 years ago, stroke with subsequent seizure and seizure disorder reduced to follow-up with a neurologist in [place] but has been noncompliant with medication as well as follow-up, bipolar disorder transferred from [facility] for seizure evaluation and management. Patient hospitalized with severe depression and psychosis at a [facility] facility. She reportedly had depression and suicidal ideation after loss of . Patient's mood improved but experienced 9 seizures in the [facility]. She had 3 witnessed seizures and route to [facility] as well. At [facility] ER she received IV benzodiazepines and IV fosphenytoin with resolution of the seizures. CT brain reported as negative for acute findings. Labs showed elevated lactic acid initially 3.1. Patient tested positive for flu. No meningeal signs. Chest x- ray negative. Received Tamiflu and Zithromax ceftriaxone IV fluids. Transferred here because there is no neurologist at the other hospital. Currently patient reports some congestion but she is fine no seizures. No lateralized neurological deficits. History Additional medical history: HTN, T2DM, PR, CVA with subsequent seizure, and bipolar, radiculopathy Additional surgical history: Cholecystectomy, right foot surgeries, cervical spine laminectomy, lumbar spine laminectomy, appendectomy, tonsillectomy Additional family history: Noncontributory Alcohol use: Denies EtOH use Drug use: Denies recreational drugs Smoking status for patients 13 years old or older: Never Smoker Medication/Allergy-Vaccine Hx Medications: Current Hospital Medications: EEG: Sleep deprived: no Medications: Current Hospital Medications: Ahfs Category Unknown Sig/Sanchez Start time Last Medication Dose Route Stop Time Status Admin Melatonin 5 MG BEDTIME 10/18 2100 AC (Melatonin) PO 11/17 2058 Anti-Infective Agents Sig/Sanchez Start time Last Medication Dose Route Stop Time Status Admin Oseltamivir Phosphate 75 MG Q12HR 10/18 1000 AC 10/18 (TAMIFLU) PO 10/22 2200 1019 Autonomic Drugs Sig/Sanchez Start time Last Medication Dose Route Stop Time Status Admin Cyclobenzaprine HCl 10 MG BID 10/18 1217 AC (FLEXERIL) PO 11/17 1216 Blood Formation,Coagulation Sig/Sanchez Start time Last Medication Dose Route Stop Time Status Admin Enoxaparin Sodium 40 MG Q24H 10/18 0513 AC 10/18 (lovENOX) SUBQ 11/01 0512 0613 Cardiovascular Drugs Sig/Sanchez Start time Last Medication Dose Route Stop Time Status Admin Hydralazine HCl 10 MG Q6H PRN PRN 10/18 0245 AC (APRESOLINE) IV 11/17 0244 Central Nervous System Agents Sig/Sanchez Start time Last Medication Dose Route Stop Time Status Admin Gabapentin 300 MG TID 10/18 1300 AC (NEURONTIN) PO 11/17 1259 Acetaminophen/ 1 TAB Q6H PRN PRN 10/18 1215 AC Codeine Phosphate PO 10/28 1214 (TYLENOL W CODEINE NO.3) Morphine Sulfate 4 MG ONCE ONE 10/18 1215 DC (morphine SULFATE) IV 10/18 1216 Fosphenytoin Sodium 100 MG Q12HR 10/18 1000 CAN (Cerebyx) IV 11/17 0959 Fosphenytoin Sodium 100 MG Q12HR 10/18 1000 AC 10/18 (Cerebyx) IV 11/17 0959 1020 Sodium Chloride 50 ML (0.9% Sodium Chloride) Hydrocodone Bitart/ 1 TAB Q4H PRN PRN 10/18 0345 DC 10/18 Acetaminophen PO 10/28 0344 1019 (NORCO 5/325) Acetaminophen 650 MG Q4H PRN PRN 10/18 0245 AC (TYLENOL) PO 11/17 0244 Lorazepam 2 MG Q6H PRN PRN 10/18 0245 AC (ATIVAN) IV 11/17 0244 Acetaminophen 975 MG X1ED STA 10/18 0136 DC 10/18 (TYLENOL) PO 10/18 0137 0146 Electrolytic, Caloric, And Bhanu Sig/Sanchez Start time Last Medication Dose Route Stop Time Status Admin Dextrose/Water 125 ML ASDIR PRN 10/18 0245 AC (DEXTROSE 10% IN IV 11/17 024 WATER 250 ML) Dextrose/Water 250 ML ASDIR PRN 10/18 0245 AC (DEXTROSE 10% IN IV 11/17 0244 WATER 250 ML) [facility] Drugs Sig/Sanchez Start time Last Medication Dose Route Stop Time Status Admin Polyethylene Glycol 17 GM DAILY 10/18 0900 AC (MIRALAX) PO 11/17 0859 Bisacodyl 10 MG DAILY PRN PRN 10/18 0245 AC (DULCOLAX) PO 11/17 0244 Ondansetron HCl 4 MG Q4H PRN PRN 10/18 0245 AC (ZOFRAN) IV 11/17 0244 Hormones And Synthetic Substit Sig/Sanchez Start time Last Medication Dose Route Stop Time Status Admin Insulin Human Lispro See Dose AC HS 10/18 729 AC (Admelog) Insts (1) SUBQ 11/17 728 Glucagon 1 MG ASDIR PRN 10/18 244 AC (GLUCAGON) IM 11/18 243 Dose Instructions: (1)Insulin Human Lispro (Admelog): ASDIRECTED Procedure Date of procedure: 10/18/24 Procedure performed: extended EEG>60m no video Indication: altered mental status, seizure, syncope Procedure description: 18 channels of at least 61-minute EEG recording utilizing international 10/20 system done today. EEG data was digitally acquired and analyzed. EKG strip is abnormal please correlate with twelve-lead EKG. Findings: Background activity consists of disorganized 9 Hz waveforms noted over both posterior quadrants. 6 to 7 Hz waveforms were seen over both hemispheres. Activation: Unremarkable Sleep: Awake and asleep Impression/Conclusion: This EEG shows mild nonspecific cerebral dysfunction. No electrographic seizures and no epileptiform activity noted. at 1103 MRI brain: FINDINGS: Brain: There are no signs of intracranial hemorrhage, acute infarction, cerebral edema, mass occupying lesion, midline shift or intra or extra-axial fluid collections. Minimal chronic white matter small vessel ischemic disease. No abnormal enhancement. No evidence of temporal lobe edema or mesiotemporal sclerosis. Cerebral ventricles: Normal. No ventriculomegaly. Bones: No destructive bone lesions. Paranasal sinuses: Clear paranasal sinuses. Mastoid air cells: Well pneumatized mastoid air cells and middle ear cavities. Grossly unremarkable internal ear structures by limited scope examination. Orbital cavities: No acute orbital abnormalities. Nasal cavity: Smooth right nasal septum deviation, likely constitutional. Vasculature: Normal flow voids are seen in the anterior and posterior cerebral arterial circulation as well as the venous sinuses. Soft tissues: No scalp edema, soft tissue air or radiopaque foreign body. IMPRESSION: 1. No MR explanation for the patient's seizures. 2. Normal evidence of acute intracranial ischemia or hemorrhage. 3. Negative for gliosis, mesiotemporal sclerosis or migrational abnormality. 4. Mild chronic white matter small vessel ischemic disease. EEG:Sleep deprived: no Medications: Current Hospital Medications: Ahfs Category Unknown Sig/Sanchez Start time Last Medication Dose Route Stop Time Status Admin Melatonin 5 MG BEDTIME 10/18 2100 AC 10/20 (Melatonin) PO 11/17 Anti-Infective Agents Sig/Sanchez Start time Last Medication Dose Route Stop Time Status Admin Doxycycline Hyclate 100 MG Q12H 10/20 2000 AC 10/20 (VIBRAMYCIN) IV 10/25 Sodium Chloride 250 ML (0.9% Sodium Chloride) Ceftriaxone Sodium 1,000 MG Q24H 10/20 1800 AC 10/20 (ROCEPHIN) IV 10/25 1758 180 Sterile Water 10 ML (WATER FOR INJECTION) Oseltamivir Phosphate 75 MG Q12HR 10/18 1000 AC 10/20 (TAMIFLU) PO 10/22 Antihistamine Drugs Sig/Sanchez Start time Last Medication Dose Route Stop Time Status Admin Diphenhydramine HCl 25 MG Q4H PRN PRN 10/18 2030 AC 10/20 (BENADRYL) PO 11/17 Autonomic Drugs Sig/Sanchez Start time Last Medication Dose Route Stop Time Status Admin Midodrine 5 MG TID 10/19 1900 AC 10/20 (PROAMATINE) PO 11/18 1859 170 Cyclobenzaprine HCl 10 MG BID 10/18 1217 AC 10/20 (FLEXERIL) PO 11/17 121 2020 Blood Derivatives Sig/Sanchez Start time Last Medication Dose Route Stop Time Status Admin Albumin Human 25 GM Q8H 10/20 0600 AC 10/20 (Albumin 25%) IV 10/21 0559 2018 Albumin Human 25 GM Q8H 10/19 1900 DC 10/19 (Albumin 25%) IV 10/20 1859 2246 Blood Formation,Coagulation Sig/Sanchez Start time Last Medication Dose Route Stop Time Status Admin Enoxaparin Sodium 40 MG Q24H 10/18 0513 AC 10/20 (lovENOX) SUBQ 11/01 0512 0631 Cardiovascular Drugs Sig/Sanchez Start time Last Medication Dose Route Stop Time Status Admin Hydralazine HCl 10 MG Q6H PRN PRN 10/18 0245 AC (APRESOLINE) IV 11/17 0244 Central Nervous System Agents Sig/Sanchez Start time Last Medication Dose Route Stop Time Status Admin Phenytoin Sodium 100 MG TID 10/20 1700 AC 10/20 (DILANTIN) PO 11/19 1659 1701 Fosphenytoin Sodium 500 MG ONCE ONE 10/20 1245 CAN (Cerebyx) IV 10/20 1246 Phenytoin Sodium 500 MG ONCE ONE 10/20 1215 CAN (DILANTIN) IV 10/20 121 Morphine Sulfate 2 MG Q4H PRN PRN 10/20 0845 AC 10/20 (morphine Sulfate) IV 10/23 0838 2016 Morphine Sulfate 4 MG Q4H PRN PRN 10/19 1315 DC 10/19 (morphine Sulfate) IV 10/22 1314 2147 Gabapentin 300 MG TID 10/18 1300 AC 10/20 (NEURONTIN) PO 11/17 1259 1701 Acetaminophen/ 1 TAB Q6H PRN PRN 10/18 1215 AC 10/19 Codeine Phosphate PO 10/28 1214 0526 (TYLENOL W CODEINE NO.3) Fosphenytoin Sodium 100 MG Q12HR 10/18 1000 DC 10/20 (Cerebyx) IV 11/17 0959 1024 Sodium Chloride 50 ML (0.9% Sodium Chloride) Acetaminophen 650 MG Q4H PRN PRN 10/18 0245 AC 10/20 (TYLENOL) PO 11/17 0244 1702 Lorazepam 2 MG Q6H PRN PRN 10/18 0245 AC 10/20 (ATIVAN) IV 11/17 0244 1113 Electrolytic, Caloric, And Bhanu Sig/Sanchez Start time Last Medication Dose Route Stop Time Status Admin Dextrose/Water 125 ML ASDIR PRN 10/18 024 AC (DEXTROSE 10% IN IV 11/17 024 WATER 250 ML) Dextrose/Water 250 ML ASDIR PRN 10/18 024 AC (DEXTROSE 10% IN IV 11/17 024 WATER 250 ML) Gastrointestinal Drugs Sig/Sanchez Start time Last Medication Dose Route Stop Time Status Admin Polyethylene Glycol 17 GM DAILY 10/18 0900 AC 10/19 (MIRALAX) PO 11/17 0859 0946 Bisacodyl 10 MG DAILY PRN PRN 10/18 0245 AC (DULCOLAX) PO 11/17 0244 Ondansetron HCl 4 MG Q4H PRN PRN 10/18 0245 AC (ZOFRAN) IV 11/17 0244 Hormones And Synthetic Substit Sig/Sanchez Start time Last Medication Dose Route Stop Time Status Admin Methylprednisolone 125 MG ONCE ONE 10/20 1230 CAN Sodium Succinate IV 10/20 1231 (Solu-MEDROL) Insulin Human Lispro See Dose AC HS 10/18 0730 AC 10/18 (Admelog) Insts (1) SUBQ 11/17 0729 2100 Glucagon 1 MG ASDIR PRN 10/18 0245 AC (GLUCAGON) IM 11/17 0244 Respiratory Tract Agents Sig/Sanchez Start time Last Medication Dose Route Stop Time Status Admin Guaifenesin 200 MG Q4H PRN PRN 10/19 2200 AC 10/19 (ROBITUSSIN) PO 11/18 2159 2258 Skin And Mucous Membrane Agent Sig/Sanchez Start time Last Medication Dose Route Stop Time Status Admin Mupirocin 1 APPLIC DAILY 10/20 1134 AC 10/20 (BACTROBAN) NASAL 10/29 0901 1229 Dose Instructions: (1)Insulin Human Lispro (Admelog): ASDIRECTED Procedure Date of procedure: 10/20/24 Procedure performed: extended EEG>60m no video Indication: seizure Procedure description: 18 channels of at least 61-minute EEG recording utilizing international 10/20 system done today. EEG data was digitally acquired and analyzed. EKG strip is abnormal please correlate with twelve-lead EKG. Findings: Background activity consists of disorganized 9 Hz waveforms noted over both posterior quadrants. 6 to 7 Hz waveforms were seen over both hemispheres. Activation: Unremarkable Sleep: Awake and asleep Impression/Conclusion: This EEG shows mild nonspecific cerebral dysfunction. No electrographic seizures and no epileptiform activity noted. at 0803 Breakthrough seizures most likely related to noncompliance History of epilepsy and seizures History of bipolar disorder History of stroke History of coronary artery disease Hypertension Diabetes Obesity Flu Recommend: Psychiatry evaluation Dilantin 300 mg daily Dilantin level adequate at 13 Continue all psychotropics and antidepressants for now Check magnesium and correct all metabolic abnormalities Patient advised that she cannot drive considering the history of seizures. She is aware of [place] law and no driving for at least 6 months after last seizure Neurochecks Seizure precautions Thiamine 100 mg every 8 Target blood sugar is normal range Target hemoglobin A1c less than 5.8 Atorvastatin 40 mg daily keep LDL less than 70 Follow-up as outpatient as needed at 2057 RPT #: [id number] END OF REPORT [facility] 2024-10-21 12:33:00 [facility] ([facility]) Hospitalist Progress Note REPORT#:[id number] REPORT STATUS: Signed REPORT INITIALIZATION DATE:10/21/24 TIME:1233 PATIENT: HEATHER TURNER UNIT #: [id number] ROOM/BED: .ICU06-1 : 72 AGE: 54 SEX: F ATTEND: Segundo Toledo MD ADM AUTHOR: Ignacio Langston MD REPT SERVICE DT/TIME: 10/21/24 1233 * ALL edits or amendments must be made on the electronic/computer document * Subjective Chief complaint: Breakthrough seizures HPI: 54 y/o F with PMH of HTN, T2DM, PR 20 yrs ago, no stent, CVA with subsequent seizure, and bipolar was transferred from [facility] for seizure eval and management. Patient hospitalized in [facility] for 2 weeks due to severe depression and SI after loss of ; mood improved but experienced 9 seizures in the [facility] and 3 witnessed en route to [facility] ED. In the ED, she received IV benzodiazepine and IV fosphenytoin with resolution of seizures. CT brain: negative for acute findings. Lab results showed elevated lactic acid initially 3.1. Patient tested positive for flu. CXR: negative. Also received Tamiflu, azithromycin, ceftriaxone, and IV fluids. Vitals stable. Transferred here for neurology service. Currently, patient reports some chest congestion, otherwise no complaints. One-to-one sitters in place. Denies SI/HI. Free Text Subj Notes Free Text Subj Notes: Patient seen at bedside Patient have another seizure episode today Objective General Medications: Active Meds + DC'd Last 24 Hrs Budesonide (PULMICORT RESPULES) 0.5 MG RTQ12H NEB Albuterol/Ipratropium (DUONEB) 3 ML RTQ6H NEB Doxycycline Hyclate (VIBRAMYCIN) 100 MG Q12H IV Sodium Chloride (0.9% Sodium Chloride) 250 ML Ceftriaxone Sodium (ROCEPHIN) 1,000 MG Q24H IV Sterile Water (WATER FOR INJECTION) 10 ML Phenytoin Sodium (DILANTIN) 100 MG TID PO Fosphenytoin Sodium (Cerebyx) 500 MG ONCE ONE IV (CAN) Phenytoin Sodium (DILANTIN) 500 MG ONCE ONE IV (CAN) Mupirocin (BACTROBAN) 1 APPLIC DAILY NASAL Morphine Sulfate (morphine Sulfate) 2 MG Q4H PRN PRN IV Albumin Human (Albumin 25%) 25 GM Q8H IV (DC) Guaifenesin (ROBITUSSIN) 200 MG Q4H PRN PRN PO Midodrine (PROAMATINE) 5 MG TID PO Melatonin (Melatonin) 5 MG BEDTIME PO Diphenhydramine HCl (BENADRYL) 25 MG Q4H PRN PRN PO Gabapentin (NEURONTIN) 300 MG TID PO Cyclobenzaprine HCl (FLEXERIL) 10 MG BID PO Acetaminophen/Codeine Phosphate (TYLENOL W CODEINE NO.3) 1 TAB Q6H PRN PRN PO Fosphenytoin Sodium (Cerebyx) 100 MG Q12HR IV (DC) Sodium Chloride (0.9% Sodium Chloride) 50 ML Oseltamivir Phosphate (TAMIFLU) 75 MG Q12HR PO Polyethylene Glycol (MIRALAX) 17 GM DAILY PO Insulin Human Lispro (Admelog) ASDIRECTED AC HS SUBQ Enoxaparin Sodium (lovENOX) 40 MG Q24H SUBQ Acetaminophen (TYLENOL) 650 MG Q4H PRN PRN PO Bisacodyl (DULCOLAX) 10 MG DAILY PRN PRN PO Dextrose/Water (DEXTROSE 10% IN WATER 250 ML) 125 ML ASDIR PRN IV Dextrose/Water (DEXTROSE 10% IN WATER 250 ML) 250 ML ASDIR PRN IV Glucagon (GLUCAGON) 1 MG ASDIR PRN IM Hydralazine HCl (APRESOLINE) 10 MG Q6H PRN PRN IV Lorazepam (ATIVAN) 2 MG Q6H PRN PRN IV Ondansetron HCl (ZOFRAN) 4 MG Q4H PRN PRN IV Physical Exam Head/Eyes: atraumatic, clear cornea, EOMI, PERRL Neck: full range of motion, non-tender, normal thyroid Cardiovascular: normal capillary refill, normal heart sounds, regular rate rhythm Respiratory: aerating well, clear to auscultation, symmetric expansion Abdomen: non-tender, normal bowel sounds, soft Neuro/CEMETERY COUNSELOR: alert, oriented X 3, normal speech Skin: dry, intact, normal color Psychiatry: anxious Diagnosis, Assessment Plan Free Text DxA P Notes Free text DxA P notes: 54 y/o F with PMH of HTN, T2DM, PR 20 yrs ago, no stent, CVA with subsequent seizure, and bipolar disorder admitted for the following; 1. Status epilepticus Downgraded to IMU Continue Ativan as needed Patient is presently on Celebyx Also on Dilantin Neurology is following input appreciated MRI of the brain reported Management of seizure per neurologist. Lead Radiation Therapist also consulted appreciate input EEG is done 2. Flu B positive Tamiflu, symptom management 3. Bipolar with depression with suicidal ideation, not active Continue necessary home med Patient is medically clear for H CAT evaluation 4. DM2 SSI 5. Hypertension PRN hydralzine 6. hx of CVA with no residual deficit resume home med 7.. hx of PR, no stents resume home med 8. Hyperlipidemia resume statin tx 9. Chronic back pain s/p lumbar and cervical spine laminectomy Continue home med when available in EMR pain control, reduced morphine dose 10. COPD Patient is on bronchodilator Also on antibiotic Diet -patient is on carbohydrate diet DVT ppx: Lovenox Full code Dispo H CAT evaluation pending Case discussed with skoog machine operator and neurologist. Case discussed with nursing staff. at 1245 RPT #: [id number] END OF REPORT [facility] 2024-10-21 10:06:00 [facility] ([facility] Pulmonology Progress Note REPORT#:[id number] REPORT STATUS: Signed REPORT INITIALIZATION DATE:10/21/24 TIME:1006 PATIENT: HEATHER TURNER UNIT #: [id number] ROOM/BED: [place] [id number] : 72 AGE: 54 SEX: F ATTEND: Segundo Toledo MD ADM AUTHOR: Mariano Tong MD REPT SERVICE DT/TIME: 10/21/24 1006 * ALL edits or amendments must be made on the electronic/computer document * Subjective Chief complaint: no active seizures Off precedex drip Responsive HPI: 54 y/o F with PMH of HTN, T2DM, PR 20 yrs ago, no stent, CVA with subsequent seizure, and bipolar was transferred from [facility] for seizure eval and management. mood improved but experienced [facility] seizures [facility] and 3 witnessed en route to [facility] ED. In the ED, she received IV benzodiazepine and IV fosphenytoin with resolution of seizures. CT brain: negative for acute findings. Lab results showed elevated lactic acid initially 3.1. Patient tested positive for flu. CXR: negative. patient reported chest congestion [facility] she developed recurrent seizures unresolved and was upgraded as status Review of Systems ROS All systems rev neg: except as marked Objective General VS/I O: Last Documented: Result Date Time Pulse Ox 97 10/21 929 B/P 120/65 10/21 09 B/P Mean 87 10/21 929 Pulse 89 10/21 929 Resp 20 10/21 09 FiO2 28 10/21 08 O2 Delivery Nasal cannula 10/21 08 O2 Flow Rate 2 10/21 08 Temp 36.7 10/21 0700 24 hour I O ending at 0700: 10/21 0700 10/20 1900 Intake Total 587.00 Output Total Balance 587.00 Intake, IV 350.00 Intake, Oral 237 PATIENT WEIGHT: Weight (lb): 160 Weight (oz): 5.37 Weight (kg): 72.727 Medications: Active Meds + DC'd Last 24 Hrs Doxycycline Hyclate (VIBRAMYCIN) 100 MG Q12H IV Sodium Chloride (0.9% Sodium Chloride) 250 ML Ceftriaxone Sodium (ROCEPHIN) 1,000 MG Q24H IV Sterile Water (WATER FOR INJECTION) 10 ML Phenytoin Sodium (DILANTIN) 100 MG TID PO Fosphenytoin Sodium (Cerebyx) 500 MG ONCE ONE IV (CAN) Methylprednisolone Sodium Succinate (Solu-MEDROL) 125 MG ONCE ONE IV ( CAN) Phenytoin Sodium (DILANTIN) 500 MG ONCE ONE IV (CAN) Mupirocin (BACTROBAN) 1 APPLIC DAILY NASAL Morphine Sulfate (morphine Sulfate) 2 MG Q4H PRN PRN IV Albumin Human (Albumin 25%) 25 GM Q8H IV (DC) Guaifenesin (ROBITUSSIN) 200 MG Q4H PRN PRN PO Midodrine (PROAMATINE) 5 MG TID PO Melatonin (Melatonin) 5 MG BEDTIME PO Diphenhydramine HCl (BENADRYL) 25 MG Q4H PRN PRN PO Gabapentin (NEURONTIN) 300 MG TID PO Cyclobenzaprine HCl (FLEXERIL) 10 MG BID PO Acetaminophen/Codeine Phosphate (TYLENOL W CODEINE NO.3) 1 TAB Q6H PRN PRN PO Fosphenytoin Sodium (Cerebyx) 100 MG Q12HR IV (DC) Sodium Chloride (0.9% Sodium Chloride) 50 ML Oseltamivir Phosphate (TAMIFLU) 75 MG Q12HR PO Polyethylene Glycol (MIRALAX) 17 GM DAILY PO Insulin Human Lispro (Admelog) ASDIRECTED AC HS SUBQ Enoxaparin Sodium (lovENOX) 40 MG Q24H SUBQ Acetaminophen (TYLENOL) 650 MG Q4H PRN PRN PO Bisacodyl (DULCOLAX) 10 MG DAILY PRN PRN PO Dextrose/Water (DEXTROSE 10% IN WATER 250 ML) 125 ML ASDIR PRN IV Dextrose/Water (DEXTROSE 10% IN WATER 250 ML) 250 ML ASDIR PRN IV Glucagon (GLUCAGON) 1 MG ASDIR PRN IM Hydralazine HCl (APRESOLINE) 10 MG Q6H PRN PRN IV Lorazepam (ATIVAN) 2 MG Q6H PRN PRN IV Ondansetron HCl (ZOFRAN) 4 MG Q4H PRN PRN IV Physical Exam Neck: full range of motion, non-tender Cardiovascular: normal heart sounds, normal S1/S2, regular rate rhythm Respiratory/chest: aerating well Abdomen: soft, non-tender Extremities: no clubbing, no cyanosis Results Findings/Data: Laboratory Tests 10/21/24 0017: [Embedded Image Not Available] 10/20/24 1201: [Embedded Image Not Available] Laboratory Tests 10/2126 7 2017 1645 1201 Chemistry Sodium (136 - 145 mmol/L) 139 Potassium (3.4 - 5.0 mmol/L) 3.8 Chloride (98 - 107 mmol/L) 103 Carbon Dioxide (21 - 32 mmol/L) 28 Anion Gap (4 - 15 GAP calc) 8 BUN (7 - 18 MG/DL) 10 Creatinine (0.6 - 1.0 MG/DL) 0.9 Glomerular Filtr Rate (>60 >=60 max estimate estGFR) Glucose (70 - 110 MG/DL) 136 H POC Glucose (70 - 110 mg/dL) 110 89 84 121 H Calcium (8.5 - 10.1 MG/DL) 8.7 Phosphorus (2.5 - 4.9 MG/DL) 4.4 Magnesium (1.8 - 2.4 MG/DL) 2.0 10/20 1059 Chemistry POC Glucose (70 - 110 mg/dL) 85 Laboratory Tests 10/21 10/20 0017 1201 Hematology WBC (3.5 - 11.0 K/mm3) 6.7 7.8 RBC (4.70 - 6.10 M/mm3) 4.15 L 4.33 L Hgb (10.4 - 14.9 G/DL) 11.3 11.6 Hct (31.5 - 44.1 %) 36.8 38.4 MCV (84.5 - 98.6 Fl) 88.7 88.7 MCH (27.0 - 34.2 pg) 27.2 26.8 L MCHC (31.5 - 34.0 G/DL) 30.7 L 30.2 L RDW (11.5 - 14.5 SD) 16.3 H 16.3 H Plt Count (150 - 450 K/mm3) 317 350 MPV (7.0 - 10.5 fL) 7.60 7.60 Neut % (Auto) (40 - 76 %) 58.5 63.8 Lymph % (Auto) (20.5 - 51.1 %) 23.6 19.8 L Nye % (Auto) (1.7 - 9.3 %) 10.6 H 8.9 Eos % (Auto) (0.0 - 6.0 %) 2.1 1.8 Baso % (Auto) (0.0 - 2.0 %) 0.9 1.0 Neut # (Auto) (1.8 - 7.6 K/mm3) 3.9 5.0 Lymph # (Auto) (0.6 - 3.2 K/mm3) 1.6 1.6 Nye # (Auto) (0.3 - 1.1 K/mm3) 0.7 0.7 Eos # (Auto) (0.0 - 0.4 K/mm3) 0.1 0.1 Baso # (Auto) (0.0 - 0.1 K/mm3) 0.1 0.1 Abs Immat Gran (auto) (0.00 - 0.03 x10 3/uL) 0.29 H 0.37 H Immature Gran % (0.0 - 5.0 %) 4.3 4.7 Nucleated RBC % (0.0 - 1.0 /100WBC%) 0.0 0.0 Laboratory Tests 10/20 1201 Toxicology Phenytoin (10.0 - 20.0 mcG/ML) 13.3 Radiology data: Recent Impressions: RADIOLOGY - XR CHEST 1 V 10/20 181 Report Impression - Status: SIGNED Entered: 10/20/2024 1839 IMPRESSION: Dependent infiltrates more prominent in the right lower lobe. Correlate clinically for pneumonia. Sequela of aspiration also possible. Impression By: [email or web address] - Yariel Troncoso M.D. Diagnosis, Assessment Plan Free Text A P: 1. Status epileptus 2 aspiration pneumonia 3. Bipolar disorder 4. Flu positive 5. COPD seem exa,omed neuro checks PRecedex drip Allegic to keppra On cecybex Ativan as needed DG to IMU CXR reivewed RLL antibiotics rocphen and doxycycline , Tamiflu on board Pulmicort BID Start Duonebs Aspiration precautions advance diet Supportive care Discussed with ICU team Orders: Procedure Date/time Status CONSISTENT CARBOHYDRATE DIET 10/21 L Active RT: Nebulizer Treatment 10/21 1118 Active LEVEL OF CARE 10/21 1006 Active at 1119 RPT #: [id number] END OF REPORT [facility] 2024-10-20 21:46:00 [facility] ([facility]) Neurology Progress Note REPORT#:[id number] REPORT STATUS: Signed REPORT INITIALIZATION DATE:10/20/24 TIME:2145 PATIENT: HEATHER TURNER UNIT #: [id number] [address] : [address] AGE: 54 SEX: F ATTEND: Segundo Toledo MD ADM AUTHOR: Martín Bone MD REPT SERVICE DT/TIME: 10/20/242145 * ALL edits or amendments must be made on the electronic/computer document * Subjective Chief Complaint: 54-year-old female with history of diabetes, obesity, hypertension, PR 20 years ago, stroke with subsequent seizure and seizure disorder reduced to follow-up with a neurologist in [place] but has been noncompliant with medication as well as follow-up, bipolar disorder transferred from [facility] for seizure evaluation and management. Patient hospitalized with severe depression and psychosis at a [facility] facility. She reportedly had depression and suicidal ideation after loss of . Patient's mood improved but experienced 9 seizures in the [facility] hospital. She had 3 witnessed seizures and route to [facility] as well. At [facility] she received IV benzodiazepines and IV fosphenytoin with resolution of the seizures. CT brain reported as negative for acute findings. Labs showed elevated lactic acid initially 3.1. Patient tested positive for flu. No meningeal signs. Chest x-ray negative. Received Tamiflu and Zithromax ceftriaxone IV fluids. Transferred here because there is no neurologist at the other hospital. Currently patient reports some congestion but she is fine no seizures. No lateralized neurological deficits. History Additional medical history: HTN, T2DM, PR, CVA with subsequent seizure, and bipolar, radiculopathy Additional surgical history: Cholecystectomy, right foot surgeries, cervical spine laminectomy, lumbar spine laminectomy, appendectomy, tonsillectomy Additional family history: Noncontributory Alcohol use: Denies EtOH use Drug use: Denies recreational drugs Smoking status for patients 13 years old or older: Never Smoker Medication/Allergy-Vaccine Hx Medications: Current Hospital Medications: History - Adult longitudinal Additional medical history: HTN, T2DM, PR, CVA with subsequent seizure, and bipolar, radiculopathy Additional surgical history: Cholecystectomy, right foot surgeries, cervical spine laminectomy, lumbar spine laminectomy, appendectomy, tonsillectomy Additional family history: Noncontributory Alcohol use: Denies EtOH use Drug use: Denies recreational drugs Smoking status for patients 13 years old or older: Current every day smoker Date last smoked: 10/17/24 Packs per day: 1 Pack years: 0 Allergies: Coded Allergies: levetiracetam (From [facility]) (Severe, "MAKES ME FEEL FUNNY" 10/18/24) Review of Systems All systems rev neg: except as marked Review of Systems All systems rev neg: except as marked Objective General VS: Last Documented: Result Date Time Pulse Ox 93 10/20 2110 FiO2 28 10/20 2110 O2 Delivery Nasal cannula 10/20 2110 O2 Flow Rate 2 10/20 2110 B/P 149/93 10/20 1829 B/P Mean 115 10/20 1829 Pulse 91 10/20 1829 Resp 20 10/20 1829 Temp 36.7 10/20 1600 PATIENT WEIGHT: Weight (lb): 160 Weight (oz): 5.37 Weight (kg): 72.727 Medications Active Meds + DC'd Last 24 Hrs Doxycycline Hyclate (VIBRAMYCIN) 100 MG Q12H IV Sodium Chloride (0.9% Sodium Chloride) 250 ML Ceftriaxone Sodium (ROCEPHIN) 1,000 MG Q24H IV Sterile Water (WATER FOR INJECTION) 10 ML Phenytoin Sodium (DILANTIN) 100 MG TID PO Fosphenytoin Sodium (Cerebyx) 500 MG ONCE ONE IV (CAN) Methylprednisolone Sodium Succinate (Solu-MEDROL) 125 MG ONCE ONE IV ( CAN) Phenytoin Sodium (DILANTIN) 500 MG ONCE ONE IV (CAN) Mupirocin (BACTROBAN) 1 APPLIC DAILY NASAL Morphine Sulfate (morphine Sulfate) 2 MG Q4H PRN PRN IV Albumin Human (Albumin 25%) 25 GM Q8H IV Guaifenesin (ROBITUSSIN) 200 MG Q4H PRN PRN PO Albumin Human (Albumin 25%) 25 GM Q8H IV (DC) Midodrine (PROAMATINE) 5 MG TID PO Morphine Sulfate (morphine Sulfate) 4 MG Q4H PRN PRN IV (DC) Melatonin (Melatonin) 5 MG BEDTIME PO Diphenhydramine HCl (BENADRYL) 25 MG Q4H PRN PRN PO Gabapentin (NEURONTIN) 300 MG TID PO Cyclobenzaprine HCl (FLEXERIL) 10 MG BID PO Acetaminophen/Codeine Phosphate (TYLENOL W CODEINE NO.3) 1 TAB Q6H PRN PRN PO Fosphenytoin Sodium (Cerebyx) 100 MG Q12HR IV (DC) Sodium Chloride (0.9% Sodium Chloride) 50 ML Oseltamivir Phosphate (TAMIFLU) 75 MG Q12HR PO Polyethylene Glycol (MIRALAX) 17 GM DAILY PO Insulin Human Lispro (Admelog) ASDIRECTED AC HS SUBQ Enoxaparin Sodium (lovENOX) 40 MG Q24H SUBQ Acetaminophen (TYLENOL) 650 MG Q4H PRN PRN PO Bisacodyl (DULCOLAX) 10 MG DAILY PRN PRN PO Dextrose/Water (DEXTROSE 10% IN WATER 250 ML) 125 ML ASDIR PRN IV Dextrose/Water (DEXTROSE 10% IN WATER 250 ML) 250 ML ASDIR PRN IV Glucagon (GLUCAGON) 1 MG ASDIR PRN IM Hydralazine HCl (APRESOLINE) 10 MG Q6H PRN PRN IV Lorazepam (ATIVAN) 2 MG Q6H PRN PRN IV Ondansetron HCl (ZOFRAN) 4 MG Q4H PRN PRN IV Total time spent today on this critically ill patient was 110 minutes Time spent includes counselling and coordination of care including discussions with family, physician, referring physician, staff and consultants.Time spent also includes Patient management by me, Time spent at bedside, Reviewing test results, Reviewing imaging, Reviewing old and new records, Discussing patient care, Documentation in record, Time with family/surrogate... Nutrition asessment: The data set between the solid lines has been imported from the dietitian's assessment. BMI Calculated: 26.7 Nutrition related diagnosis: Nutrition diagnosis details: Nutrition problem: Nutrition etiology: Nutrition signs and symptoms: Nutrition prescription: Dietitian name: Assessment completed: Physical Exam General appearance: awake Head/Eyes: atraumatic ENT: moist mucosal membranes Neck: supple/no meningismus Cardiovascular: regular rate and rhythm Respiratory: no distress Abdomen: soft Extremities: pulses present Musculoskeletal: full range of motion Neuro/CEMETERY COUNSELOR: gait abnormality, alert, oriented X 4, normal speech, EOMI, PERRL, CN II-XII intact, reflexes equal bilat, no motor deficits, no sensory deficits, no cerebellar deficits Neuro comment: Patient alert oriented normal language memory fund of knowledge denies any suicidal or homicidal ideation. EOMI PERRLA Sensation normal in face No facial asymmetry Uvula midline Gag positive Tongue midline Shoulder shrug is normal Motor: Moves all extremities equally 5/5 Sensory symmetric to pinprick Deep and reflexes 2 Plantars are flexor No past-pointing Gait: Abnormal tandem gait Skin: dry, intact Results Findings/Data: Laboratory Tests 10/20 1645 1201 1059 0743 Chemistry POC Glucose (70 - 110 mg/dL) 89 84 121 H 85 77 Laboratory Tests 10/20 1201 Hematology WBC (3.5 - 11.0 K/mm3) 7.8 RBC (4.70 - 6.10 M/mm3) 4.33 L Hgb (10.4 - 14.9 G/DL) 11.6 Hct (31.5 - 44.1 %) 38.4 MCV (84.5 - 98.6 Fl) 88.7 MCH (27.0 - 34.2 pg) 26.8 L MCHC (31.5 - 34.0 G/DL) 30.2 L RDW (11.5 - 14.5 SD) 16.3 H Plt Count (150 - 450 K/mm3) 350 MPV (7.0 - 10.5 fL) 7.60 Neut % (Auto) (40 - 76 %) 63.8 Lymph % (Auto) (20.5 - 51.1 %) 19.8 L Nye % (Auto) (1.7 - 9.3 %) 8.9 Eos % (Auto) (0.0 - 6.0 %) 1.8 Baso % (Auto) (0.0 - 2.0 %) 1.0 Neut # (Auto) (1.8 - 7.6 K/mm3) 5.0 Lymph # (Auto) (0.6 - 3.2 K/mm3) 1.6 Nye # (Auto) (0.3 - 1.1 K/mm3) 0.7 Eos # (Auto) (0.0 - 0.4 K/mm3) 0.1 Baso # (Auto) (0.0 - 0.1 K/mm3) 0.1 Abs Immat Gran (auto) (0.00 - 0.03 x10 3/uL) 0.37 H Immature Gran % (0.0 - 5.0 %) 4.7 Nucleated RBC % (0.0 - 1.0 /100WBC%) 0.0 Laboratory Tests 10/20 1201 Toxicology Phenytoin (10.0 - 20.0 mcG/ML) 13.3 Radiology Data: Recent Impressions: RADIOLOGY - XR CHEST 1 V 10/20 1810 Report Impression - Status: SIGNED Entered: 10/20/2024 6415 IMPRESSION: Dependent infiltrates more prominent in the right lower lobe. Correlate clinically for pneumonia. Sequela of aspiration also possible. Impression By: [email or web address] - Yariel Troncoso M.D. Results: labs reviewed Diagnosis, Assessment Plan Free Text A P: 54-year-old female with history of diabetes, obesity, hypertension, PR 20 years ago, stroke with subsequent seizure and seizure disorder reduced to follow-up with a neurologist in [place] but has been noncompliant with medication as well as follow-up, bipolar disorder transferred from [facility] for seizure evaluation and management. Patient hospitalized with severe depression and psychosis at a [facility] facility. She reportedly had depression and suicidal ideation after loss of . Patient's mood improved but experienced 9 seizures in the [facility]. She had 3 witnessed seizures and route to [facility] as well. At [facility] she received IV benzodiazepines and IV fosphenytoin with resolution of the seizures. CT brain reported as negative for acute findings. Labs showed elevated lactic acid initially 3.1. Patient tested positive for flu. No meningeal signs. Chest x- ray negative. Received Tamiflu and Zithromax ceftriaxone IV fluids. Transferred here because there is no neurologist at the other hospital. Currently patient reports some congestion but she is fine no seizures. No lateralized neurological deficits. History Additional medical history: HTN, T2DM, PR, CVA with subsequent seizure, and bipolar, radiculopathy Additional surgical history: Cholecystectomy, right foot surgeries, cervical spine laminectomy, lumbar spine laminectomy, appendectomy, tonsillectomy Additional family history: Noncontributory Alcohol use: Denies EtOH use Drug use: Denies recreational drugs Smoking status for patients 13 years old or older: Never Smoker Medication/Allergy-Vaccine Hx Medications: Current Hospital Medications: EEG: Sleep deprived: no Medications: Current Hospital Medications: Ahfs Category Unknown Sig/Sanchez Start time Last Medication Dose Route Stop Time Status Admin Melatonin 5 MG BEDTIME 10/18 2099 AC (Melatonin) PO 11/17 2058 Anti-Infective Agents Sig/Sanchez Start time Last Medication Dose Route Stop Time Status Admin Oseltamivir Phosphate 75 MG Q12HR 10/18 1000 AC 10/18 (TAMIFLU) PO 10/22 2201 1019 Autonomic Drugs Sig/Sanchez Start time Last Medication Dose Route Stop Time Status Admin Cyclobenzaprine HCl 10 MG BID 10/18 1217 AC (FLEXERIL) PO 11/17 1216 Blood Formation,Coagulation Sig/Sanchez Start time Last Medication Dose Route Stop Time Status Admin Enoxaparin Sodium 40 MG Q24H 10/18 0513 AC 10/18 (lovENOX) SUBQ 11/01 0512 0613 Cardiovascular Drugs Sig/Sanchez Start time Last Medication Dose Route Stop Time Status Admin Hydralazine HCl 10 MG Q6H PRN PRN 10/18 0245 AC (APRESOLINE) IV 11/17 0244 Central Nervous System Agents Sig/Sanchez Start time Last Medication Dose Route Stop Time Status Admin Gabapentin 300 MG TID 10/18 1300 AC (NEURONTIN) PO 11/17 1259 Acetaminophen/ 1 TAB Q6H PRN PRN 10/18 1215 AC Codeine Phosphate PO 10/28 1214 (TYLENOL W CODEINE NO.3) Morphine Sulfate 4 MG ONCE ONE 10/18 1215 DC (morphine SULFATE) IV 10/18 1216 Fosphenytoin Sodium 100 MG Q12HR 10/18 1000 CAN (Cerebyx) IV 11/17 0959 Fosphenytoin Sodium 100 MG Q12HR 10/18 1000 AC 10/18 (Cerebyx) IV 11/17 0959 1020 Sodium Chloride 50 ML (0.9% Sodium Chloride) Hydrocodone Bitart/ 1 TAB Q4H PRN PRN 10/18 0345 DC 10/18 Acetaminophen PO 10/28 0344 1019 (NORCO 5/325) Acetaminophen 650 MG Q4H PRN PRN 10/18 0245 AC (TYLENOL) PO 11/17 0244 Lorazepam 2 MG Q6H PRN PRN 10/18 0245 AC (ATIVAN) IV 11/17 0244 Acetaminophen 975 MG X1ED STA 10/18 0136 DC 10/18 (TYLENOL) PO 10/18 0137 0146 Electrolytic, Caloric, And Bhanu Sig/Sanchez Start time Last Medication Dose Route Stop Time Status Admin Dextrose/Water 125 ML ASDIR PRN 10/18 0245 AC (DEXTROSE 10% IN IV 11/18 243 WATER 250 ML) Dextrose/Water 250 ML ASDIR PRN 10/18 244 AC (DEXTROSE 10% IN IV 11/18 243 WATER 250 ML) Gastrointestinal Drugs Sig/Sanchez Start time Last Medication Dose Route Stop Time Status Admin Polyethylene Glycol 17 GM DAILY 10/18 0900 AC (MIRALAX) PO 11/17 0859 Bisacodyl 10 MG DAILY PRN PRN 10/18 244 AC (DULCOLAX) PO 11/17 024 Ondansetron HCl 4 MG Q4H PRN PRN 10/18 244 AC (ZOFRAN) IV 11/18 243 Hormones And Synthetic Substit Sig/Sanchez Start time Last Medication Dose Route Stop Time Status Admin Insulin Human Lispro See Dose AC HS 10/18 729 AC (Admelog) Insts (1) SUBQ 11/17 728 Glucagon 1 MG ASDIR PRN 10/18 244 AC (GLUCAGON) IM 11/18 243 Dose Instructions: (1)Insulin Human Lispro (Admelog): ASDIRECTED Procedure Date of procedure: 10/18/24 Procedure performed: extended EEG>60m no video Indication: altered mental status, seizure, syncope Procedure description: 18 channels of at least 61-minute EEG recording utilizing international 10/20 system done today. EEG data was digitally acquired and analyzed. EKG strip is abnormal please correlate with twelve-lead EKG. Findings: Background activity consists of disorganized 9 Hz waveforms noted over both posterior quadrants. 6 to 7 Hz waveforms were seen over both hemispheres. Activation: Unremarkable Sleep: Awake and asleep Impression/Conclusion: This EEG shows mild nonspecific cerebral dysfunction. No electrographic seizures and no epileptiform activity noted. at 1902 MRI brain: FINDINGS: Brain: There are no signs of intracranial hemorrhage, acute infarction, cerebral edema, mass occupying lesion, midline shift or intra or extra-axial fluid collections. Minimal chronic white matter small vessel ischemic disease. No abnormal enhancement. No evidence of temporal lobe edema or mesiotemporal sclerosis. Cerebral ventricles: Normal. No ventriculomegaly. Bones: No destructive bone lesions. Paranasal sinuses: Clear paranasal sinuses. Mastoid air cells: Well pneumatized mastoid air cells and middle ear cavities. Grossly unremarkable internal ear structures by limited scope examination. Orbital cavities: No acute orbital abnormalities. Nasal cavity: Smooth right nasal septum deviation, likely constitutional. Vasculature: Normal flow voids are seen in the anterior and posterior cerebral arterial circulation as well as the venous sinuses. Soft tissues: No scalp edema, soft tissue air or radiopaque foreign body. IMPRESSION: 1. No MR explanation for the patient's seizures. 2. Normal evidence of acute intracranial ischemia or hemorrhage. 3. Negative for gliosis, mesiotemporal sclerosis or migrational abnormality. 4. Mild chronic white matter small vessel ischemic disease. Breakthrough seizures most likely related to noncompliance History of epilepsy and seizures History of bipolar disorder History of stroke History of coronary artery disease Hypertension Diabetes Obesity Flu Recommend: Repeat EEG today ICU monitoring Dilantin 300 mg daily Consider LP Dilantin level adequate at 13 Continue all psychotropics and antidepressants for now Check magnesium and correct all metabolic abnormalities Patient advised that she cannot drive considering the history of seizures. She is aware of [place] law and no driving for at least 6 months after last seizure Neurochecks Seizure precautions Thiamine 100 mg every 8 Target blood sugar is normal range Target hemoglobin A1c less than 5.8 Lipid panel and hemoglobin A1c, TSH, vitamin B12 Atorvastatin 40 mg daily keep LDL less than 70 Follow-up as outpatient as needed at 2149 RPT #: [id number] END OF REPORT [facility] 2024-10-20 21:44:00 [facility] ([facility] Neurology Progress Note REPORT#:[id number] REPORT STATUS: Signed REPORT INITIALIZATION DATE:10/20/24 TIME:2143 PATIENT: HEATHER TURNER UNIT #: [id number] ROOM/BED: ICU06-1 : 72 AGE: 54 SEX: F ATTEND: Segundo Toledo MD ADM AUTHOR: Martín Bone MD REPT SERVICE DT/TIME: 10/20/242143 * ALL edits or amendments must be made on the electronic/computer document * Subjective Chief Complaint: 54-year-old female with history of diabetes, obesity, hypertension, PR 20 years ago, stroke with subsequent seizure and seizure disorder reduced to follow-up with a neurologist in [place] but has been noncompliant with medication as well as follow-up, bipolar disorder transferred from [facility] for seizure evaluation and management. Patient hospitalized with severe depression and psychosis at a [facility] facility. She reportedly had depression and suicidal ideation after loss of . Patient's mood improved but experienced 9 seizures in the [facility]. She had 3 witnessed seizures and route to [facility] as well. At [facility] she received IV benzodiazepines and IV fosphenytoin with resolution of the seizures. CT brain reported as negative for acute findings. Labs showed elevated lactic acid initially 3.1. Patient tested positive for flu. No meningeal signs. Chest x- ray negative. Received Tamiflu and Zithromax ceftriaxone IV fluids. Transferred here because there is no neurologist at the other hospital. Currently patient reports some congestion but she is fine no seizures. No lateralized neurological deficits. History Additional medical history: HTN, T2DM, PR, CVA with subsequent seizure, and bipolar, radiculopathy Additional surgical history: Cholecystectomy, right foot surgeries, cervical spine laminectomy, lumbar spine laminectomy, appendectomy, tonsillectomy Additional family history: Noncontributory Alcohol use: Denies EtOH use Drug use: Denies recreational drugs Smoking status for patients 13 years old or older: Never Smoker Medication/Allergy-Vaccine Hx Medications: Current Hospital Medications: History - Adult longitudinal Additional medical history: HTN, T2DM, PR, CVA with subsequent seizure, and bipolar, radiculopathy Additional surgical history: Cholecystectomy, right foot surgeries, cervical spine laminectomy, lumbar spine laminectomy, appendectomy, tonsillectomy Additional family history: Noncontributory Alcohol use: Denies EtOH use Drug use: Denies recreational drugs Smoking status for patients 13 years old or older: Current every day smoker Date last smoked: 10/17/24 Packs per day: 1 Pack years: 0 Allergies: Coded Allergies: levetiracetam (From [facility]) (Severe, "MAKES ME FEEL FUNNY" 10/18/24) Review of Systems All systems rev neg: except as marked HPI: Date of service: October 19, 2024 Review of Systems All systems rev neg: except as marked Objective General VS: Last Documented: Result Date Time Pulse Ox 93 10/20 2110 FiO2 28 10/20 2110 O2 Delivery Nasal cannula 10/20 2110 O2 Flow Rate 2 10/20 2110 B/P 149/93 10/20 1829 B/P Mean 115 10/20 1829 Pulse 91 10/20 1829 Resp 20 10/20 1829 Temp 36.7 10/20 1600 PATIENT WEIGHT: Weight (lb): 160 Weight (oz): 5.37 Weight (kg): 72.727 Medications Active Meds + DC'd Last 24 Hrs Doxycycline Hyclate (VIBRAMYCIN) 100 MG Q12H IV Sodium Chloride (0.9% Sodium Chloride) 250 ML Ceftriaxone Sodium (ROCEPHIN) 1,000 MG Q24H IV Sterile Water (WATER FOR INJECTION) 10 ML Phenytoin Sodium (DILANTIN) 100 MG TID PO Fosphenytoin Sodium (Cerebyx) 500 MG ONCE ONE IV (CAN) Methylprednisolone Sodium Succinate (Solu-MEDROL) 125 MG ONCE ONE IV ( CAN) Phenytoin Sodium (DILANTIN) 500 MG ONCE ONE IV (CAN) Mupirocin (BACTROBAN) 1 APPLIC DAILY NASAL Morphine Sulfate (morphine Sulfate) 2 MG Q4H PRN PRN IV Albumin Human (Albumin 25%) 25 GM Q8H IV Guaifenesin (ROBITUSSIN) 200 MG Q4H PRN PRN PO Albumin Human (Albumin 25%) 25 GM Q8H IV (DC) Midodrine (PROAMATINE) 5 MG TID PO Morphine Sulfate (morphine Sulfate) 4 MG Q4H PRN PRN IV (DC) Melatonin (Melatonin) 5 MG BEDTIME PO Diphenhydramine HCl (BENADRYL) 25 MG Q4H PRN PRN PO Gabapentin (NEURONTIN) 300 MG TID PO Cyclobenzaprine HCl (FLEXERIL) 10 MG BID PO Acetaminophen/Codeine Phosphate (TYLENOL W CODEINE NO.3) 1 TAB Q6H PRN PRN PO Fosphenytoin Sodium (Cerebyx) 100 MG Q12HR IV (DC) Sodium Chloride (0.9% Sodium Chloride) 50 ML Oseltamivir Phosphate (TAMIFLU) 75 MG Q12HR PO Polyethylene Glycol (MIRALAX) 17 GM DAILY PO Insulin Human Lispro (Admelog) ASDIRECTED AC HS SUBQ Enoxaparin Sodium (lovENOX) 40 MG Q24H SUBQ Acetaminophen (TYLENOL) 650 MG Q4H PRN PRN PO Bisacodyl (DULCOLAX) 10 MG DAILY PRN PRN PO Dextrose/Water (DEXTROSE 10% IN WATER 250 ML) 125 ML ASDIR PRN IV Dextrose/Water (DEXTROSE 10% IN WATER 250 ML) 250 ML ASDIR PRN IV Glucagon (GLUCAGON) 1 MG ASDIR PRN IM Hydralazine HCl (APRESOLINE) 10 MG Q6H PRN PRN IV Lorazepam (ATIVAN) 2 MG Q6H PRN PRN IV Ondansetron HCl (ZOFRAN) 4 MG Q4H PRN PRN IV Total time spent today on this critically ill patient was 110 minutes Time spent includes counselling and coordination of care including discussions with family, physician, referring physician, staff and consultants.Time spent also includes Patient management by me, Time spent at bedside, Reviewing test results, Reviewing imaging, Reviewing old and new records, Discussing patient care, Documentation in record, Time with family/surrogate... Nutrition asessment: The data set between the solid lines has been imported from the dietitian's assessment. BMI Calculated: 26.7 Nutrition related diagnosis: Nutrition diagnosis details: Nutrition problem: Nutrition etiology: Nutrition signs and symptoms: Nutrition prescription: Dietitian name: Assessment completed: Physical Exam General appearance: altered mental status, awake Head/Eyes: atraumatic ENT: moist mucosal membranes Neck: supple/no meningismus Cardiovascular: regular rate and rhythm Respiratory: no distress Abdomen: soft Extremities: pulses present Musculoskeletal: full range of motion Neuro/CEMETERY COUNSELOR: gait abnormality, alert, oriented X 4, normal speech, EOMI, PERRL, CN II-XII intact, reflexes equal bilat, no motor deficits, no sensory deficits, no cerebellar deficits Neuro comment: Patient alert oriented normal language memory fund of knowledge denies any suicidal or homicidal ideation. EOMI PERRLA Sensation normal in face No facial asymmetry Uvula midline Gag positive Tongue midline Shoulder shrug is normal Motor: Moves all extremities equally 5/5 Sensory symmetric to pinprick Deep and reflexes 2 Plantars are flexor No past-pointing Gait: Abnormal tandem gait Skin: dry, intact Results Findings/Data: Laboratory Tests 10/20 1645 1201 1059 0743 Chemistry POC Glucose (70 - 110 mg/dL) 89 84 121 H 85 77 10/19 2147 Chemistry POC Glucose (70 - 110 mg/dL) 95 Laboratory Tests 10/20 1201 Hematology WBC (3.5 - 11.0 K/mm3) 7.8 RBC (4.70 - 6.10 M/mm3) 4.33 L Hgb (10.4 - 14.9 G/DL) 11.6 Hct (31.5 - 44.1 %) 38.4 MCV (84.5 - 98.6 Fl) 88.7 MCH (27.0 - 34.2 pg) 26.8 L MCHC (31.5 - 34.0 G/DL) 30.2 L RDW (11.5 - 14.5 SD) 16.3 H Plt Count (150 - 450 K/mm3) 350 MPV (7.0 - 10.5 fL) 7.60 Neut % (Auto) (40 - 76 %) 63.8 Lymph % (Auto) (20.5 - 51.1 %) 19.8 L Nye % (Auto) (1.7 - 9.3 %) 8.9 Eos % (Auto) (0.0 - 6.0 %) 1.8 Baso % (Auto) (0.0 - 2.0 %) 1.0 Neut # (Auto) (1.8 - 7.6 K/mm3) 5.0 Lymph # (Auto) (0.6 - 3.2 K/mm3) 1.6 Nye # (Auto) (0.3 - 1.1 K/mm3) 0.7 Eos # (Auto) (0.0 - 0.4 K/mm3) 0.1 Baso # (Auto) (0.0 - 0.1 K/mm3) 0.1 Abs Immat Gran (auto) (0.00 - 0.03 x10 3/uL) 0.37 H Immature Gran % (0.0 - 5.0 %) 4.7 Nucleated RBC % (0.0 - 1.0 /100WBC%) 0.0 Laboratory Tests 10/20 1201 Toxicology Phenytoin (10.0 - 20.0 mcG/ML) 13.3 Radiology Data: Recent Impressions: RADIOLOGY - XR CHEST 1 V 10/20 1810 Report Impression - Status: SIGNED Entered: 10/20/2024 408 IMPRESSION: Dependent infiltrates more prominent in the right lower lobe. Correlate clinically for pneumonia. Sequela of aspiration also possible. Impression By: [email or web address] - Yariel Troncoso M.D. Results: labs reviewed Diagnosis, Assessment Plan Free Text A P: 54-year-old female with history of diabetes, obesity, hypertension, PR 20 years ago, stroke with subsequent seizure and seizure disorder reduced to follow-up with a neurologist in [place] but has been noncompliant with medication as well as follow-up, bipolar disorder transferred from [facility] for seizure evaluation and management. Patient hospitalized with severe depression and psychosis at a [facility] facility. She reportedly had depression and suicidal ideation after loss of . Patient's mood improved but experienced 9 seizures in the [facility] hospital. She had 3 witnessed seizures and route to [facility] as well. At [facility] she received IV benzodiazepines and IV fosphenytoin with resolution of the seizures. CT brain reported as negative for acute findings. Labs showed elevated lactic acid initially 3.1. Patient tested positive for flu. No meningeal signs. Chest x- ray negative. Received Tamiflu and Zithromax ceftriaxone IV fluids. Transferred here because there is no neurologist at the other hospital. Currently patient reports some congestion but she is fine no seizures. No lateralized neurological deficits. History Additional medical history: HTN, T2DM, PR, CVA with subsequent seizure, and bipolar, radiculopathy Additional surgical history: Cholecystectomy, right foot surgeries, cervical spine laminectomy, lumbar spine laminectomy, appendectomy, tonsillectomy Additional family history: Noncontributory Alcohol use: Denies EtOH use Drug use: Denies recreational drugs Smoking status for patients 13 years old or older: Never Smoker Medication/Allergy-Vaccine Hx Medications: Current Hospital Medications: EEG: Sleep deprived: no Medications: Current Hospital Medications: Ahfs Category Unknown Sig/Sanchez Start time Last Medication Dose Route Stop Time Status Admin Melatonin 5 MG BEDTIME 10/18 2100 AC (Melatonin) PO 11/17 205 Anti-Infective Agents Sig/Sanchez Start time Last Medication Dose Route Stop Time Status Admin Oseltamivir Phosphate 75 MG Q12HR 10/18 1000 AC 10/18 (TAMIFLU) PO 10/22 220 1019 Autonomic Drugs Sig/Sanchez Start time Last Medication Dose Route Stop Time Status Admin Cyclobenzaprine HCl 10 MG BID 10/18 1217 AC (FLEXERIL) PO 11/17 1216 Blood Formation,Coagulation Sig/Sanchez Start time Last Medication Dose Route Stop Time Status Admin Enoxaparin Sodium 40 MG Q24H 10/18 0513 AC 10/18 (lovENOX) SUBQ 11/01 0512 0613 Cardiovascular Drugs Sig/Sanchez Start time Last Medication Dose Route Stop Time Status Admin Hydralazine HCl 10 MG Q6H PRN PRN 10/18 0245 AC (APRESOLINE) IV 11/17 0244 Central Nervous System Agents Sig/Sanchez Start time Last Medication Dose Route Stop Time Status Admin Gabapentin 300 MG TID 10/18 1300 AC (NEURONTIN) PO 11/17 1259 Acetaminophen/ 1 TAB Q6H PRN PRN 10/18 1215 AC Codeine Phosphate PO 10/28 1214 (TYLENOL W CODEINE NO.3) Morphine Sulfate 4 MG ONCE ONE 10/18 1215 DC (morphine SULFATE) IV 10/18 1216 Fosphenytoin Sodium 100 MG Q12HR 10/18 1000 CAN (Cerebyx) IV 11/17 0959 Fosphenytoin Sodium 100 MG Q12HR 10/18 1000 AC 10/18 (Cerebyx) IV 11/17 0959 1020 Sodium Chloride 50 ML (0.9% Sodium Chloride) Hydrocodone Bitart/ 1 TAB Q4H PRN PRN 10/18 0345 DC 10/18 Acetaminophen PO 10/28 0344 1019 (NORCO 5/325) Acetaminophen 650 MG Q4H PRN PRN 10/18 0245 AC (TYLENOL) PO 11/17 0244 Lorazepam 2 MG Q6H PRN PRN 10/18 0245 AC (ATIVAN) IV 11/17 0244 Acetaminophen 975 MG X1ED STA 10/18 0136 DC 10/18 (TYLENOL) PO 10/18 0137 0146 Electrolytic, Caloric, And Bhanu Sig/Sanchez Start time Last Medication Dose Route Stop Time Status Admin Dextrose/Water 125 ML ASDIR PRN 10/18 244 AC (DEXTROSE 10% IN IV 11/18 243 WATER 250 ML) Dextrose/Water 250 ML ASDIR PRN 10/18 244 AC (DEXTROSE 10% IN IV 11/18 243 WATER 250 ML) Gastrointestinal Drugs Sig/Sanchez Start time Last Medication Dose Route Stop Time Status Admin Polyethylene Glycol 17 GM DAILY 10/18 0900 AC (MIRALAX) PO 11/17 0859 Bisacodyl 10 MG DAILY PRN PRN 10/18 244 AC (DULCOLAX) PO 11/18 243 Ondansetron HCl 4 MG Q4H PRN PRN 10/18 244 AC (ZOFRAN) IV 11/18 243 Hormones And Synthetic Substit Sig/Sanchez Start time Last Medication Dose Route Stop Time Status Admin Insulin Human Lispro See Dose AC HS 10/18 729 AC (Admelog) Insts (1) SUBQ 11/17 728 Glucagon 1 MG ASDIR PRN 10/18 244 AC (GLUCAGON) IM 11/18 243 Dose Instructions: (1)Insulin Human Lispro (Admelog): ASDIRECTED Procedure Date of procedure: 10/18/24 Procedure performed: extended EEG>60m no video Indication: altered mental status, seizure, syncope Procedure description: 18 channels of at least 61-minute EEG recording utilizing international 10/20 system done today. EEG data was digitally acquired and analyzed. EKG strip is abnormal please correlate with twelve-lead EKG. Findings: Background activity consists of disorganized 9 Hz waveforms noted over both posterior quadrants. 6 to 7 Hz waveforms were seen over both hemispheres. Activation: Unremarkable Sleep: Awake and asleep Impression/Conclusion: This EEG shows mild nonspecific cerebral dysfunction. No electrographic seizures and no epileptiform activity noted. at 2422 Breakthrough seizures most likely related to noncompliance History of epilepsy and seizures History of bipolar disorder History of stroke History of coronary artery disease Hypertension Diabetes Obesity Flu Recommend: MRI brain Dilantin 300 mg daily Check Dilantin level and adjust dose accordingly Continue all psychotropics and antidepressants for now Check magnesium and correct all metabolic abnormalities Patient advised that she cannot drive considering the history of seizures. She is aware of [place] law and no driving for at least 6 months after last seizure Neurochecks Seizure precautions Thiamine 100 mg every 8 Target blood sugar is normal range Target hemoglobin A1c less than 5.8 Lipid panel and hemoglobin A1c, TSH, vitamin B12 Atorvastatin 40 mg daily keep LDL less than 70 Follow-up as outpatient as needed at 2145 RPT #: [id number] END OF REPORT [facility] 2024-10-20 20:24:00 [facility] ([facility]) Electroencephalogram-EEG REPORT#:[id number] REPORT STATUS: Signed REPORT INITIALIZATION DATE:10/20/24 TIME:2023 PATIENT: HEATHER TURNER UNIT #: [id number] ROOM/BED: [place] [id number] : 72 AGE: 54 SEX: F ATTEND: Segundo Toledo MD ADM AUTHOR: Martín Bone MD REPT SERVICE DT/TIME: 10/20/242023 * ALL edits or amendments must be made on the electronic/computer document * Procedure HPI PCP: PCP: Undefined Provider Sleep deprived: no Medications: Current Hospital Medications: Ahfs Category Unknown Sig/Sanchez Start time Last Medication Dose Route Stop Time Status Admin Melatonin 5 MG BEDTIME 10/18 2099 AC 10/20 (Melatonin) PO 11/17 Anti-Infective Agents Sig/Sanchez Start time Last Medication Dose Route Stop Time Status Admin Doxycycline Hyclate 100 MG Q12H 10/20 2000 AC 10/20 (VIBRAMYCIN) IV 10/25 Sodium Chloride 250 ML (0.9% Sodium Chloride) Ceftriaxone Sodium 1,000 MG Q24H 10/20 1800 AC 10/20 (ROCEPHIN) IV 10/25 Sterile Water 10 ML (WATER FOR INJECTION) Oseltamivir Phosphate 75 MG Q12HR 10/18 1000 AC 10/20 (TAMIFLU) PO 10/22 Antihistamine Drugs Sig/Sanchez Start time Last Medication Dose Route Stop Time Status Admin Diphenhydramine HCl 25 MG Q4H PRN PRN 10/18 2029 AC 10/20 (BENADRYL) PO 11/17 Autonomic Drugs Sig/Sanchez Start time Last Medication Dose Route Stop Time Status Admin Midodrine 5 MG TID 10/19 1900 AC 10/20 (PROAMATINE) PO 11/18 1859 1701 Cyclobenzaprine HCl 10 MG BID 10/18 1217 AC 10/20 (FLEXERIL) PO 11/17 1216 2020 Blood Derivatives Sig/Sanchez Start time Last Medication Dose Route Stop Time Status Admin Albumin Human 25 GM Q8H 10/20 0600 AC 10/20 (Albumin 25%) IV 10/21 0559 2018 Albumin Human 25 GM Q8H 10/19 1900 DC 10/19 (Albumin 25%) IV 10/20 1859 2246 Blood Formation,Coagulation Sig/Sanchez Start time Last Medication Dose Route Stop Time Status Admin Enoxaparin Sodium 40 MG Q24H 10/18 0513 AC 10/20 (lovENOX) SUBQ 11/01 0512 0631 Cardiovascular Drugs Sig/Sanchez Start time Last Medication Dose Route Stop Time Status Admin Hydralazine HCl 10 MG Q6H PRN PRN 10/18 0245 AC (APRESOLINE) IV 11/17 0244 Central Nervous System Agents Sig/Sanchez Start time Last Medication Dose Route Stop Time Status Admin Phenytoin Sodium 100 MG TID 10/20 1700 AC 10/20 (DILANTIN) PO 11/19 1659 1701 Fosphenytoin Sodium 500 MG ONCE ONE 10/20 1245 CAN (Cerebyx) IV 10/20 1246 Phenytoin Sodium 500 MG ONCE ONE 10/20 1215 CAN (DILANTIN) IV 10/20 1216 Morphine Sulfate 2 MG Q4H PRN PRN 10/20 0845 AC 10/20 (morphine Sulfate) IV 10/23 0838 2016 Morphine Sulfate 4 MG Q4H PRN PRN 10/19 1315 DC 10/19 (morphine Sulfate) IV 10/22 1314 2147 Gabapentin 300 MG TID 10/18 1300 AC 10/20 (NEURONTIN) PO 11/17 1259 1701 Acetaminophen/ 1 TAB Q6H PRN PRN 10/18 1215 AC 10/19 Codeine Phosphate PO 10/28 1214 0526 (TYLENOL W CODEINE NO.3) Fosphenytoin Sodium 100 MG Q12HR 10/18 1000 DC 10/20 (Cerebyx) IV 11/17 0959 1024 Sodium Chloride 50 ML (0.9% Sodium Chloride) Acetaminophen 650 MG Q4H PRN PRN 10/18 0245 AC 10/20 (TYLENOL) PO 11/17 0244 1702 Lorazepam 2 MG Q6H PRN PRN 10/18 024 AC 10/20 (ATIVAN) IV 11/17 0244 1113 Electrolytic, Caloric, And Bhanu Sig/Sanchez Start time Last Medication Dose Route Stop Time Status Admin Dextrose/Water 125 ML ASDIR PRN 10/18 0245 AC (DEXTROSE 10% IN IV 11/18 243 WATER 250 ML) Dextrose/Water 250 ML ASDIR PRN 10/18 024 AC (DEXTROSE 10% IN IV 11/18 243 WATER 250 ML) Gastrointestinal Drugs Sig/Sanchez Start time Last Medication Dose Route Stop Time Status Admin Polyethylene Glycol 17 GM DAILY 10/18 0900 AC 10/19 (MIRALAX) PO 11/17 0859 0946 Bisacodyl 10 MG DAILY PRN PRN 10/18 024 AC (DULCOLAX) PO 11/17 024 Ondansetron HCl 4 MG Q4H PRN PRN 10/18 0245 AC (ZOFRAN) IV 11/17 024 Hormones And Synthetic Substit Sig/Sanchez Start time Last Medication Dose Route Stop Time Status Admin Methylprednisolone 125 MG ONCE ONE 10/20 1230 CAN Sodium Succinate IV 10/20 1231 (Solu-MEDROL) Insulin Human Lispro See Dose AC HS 10/18 0730 AC 10/18 (Admelog) Insts (1) SUBQ 11/17 0729 2100 Glucagon 1 MG ASDIR PRN 10/18 024 AC (GLUCAGON) IM 11/17 0244 Respiratory Tract Agents Sig/Sanchez Start time Last Medication Dose Route Stop Time Status Admin Guaifenesin 200 MG Q4H PRN PRN 10/19 2200 AC 10/19 (ROBITUSSIN) PO 11/18 2159 2258 Skin And Mucous Membrane Agent Sig/Sanchez Start time Last Medication Dose Route Stop Time Status Admin Mupirocin 1 APPLIC DAILY 10/20 1134 AC 10/20 (BACTROBAN) NASAL 10/29 0901 1229 Dose Instructions: (1)Insulin Human Lispro (Admelog): ASDIRECTED Procedure Date of procedure: 10/20/24 Procedure performed: extended EEG>60m no video Indication: seizure Procedure description: 18 channels of at least 61-minute EEG recording utilizing international 10/20 system done today. EEG data was digitally acquired and analyzed. EKG strip is abnormal please correlate with twelve-lead EKG. Findings: Background activity consists of disorganized 9 Hz waveforms noted over both posterior quadrants. 6 to 7 Hz waveforms were seen over both hemispheres. Activation: Unremarkable Sleep: Awake and asleep Impression/Conclusion: This EEG shows mild nonspecific cerebral dysfunction. No electrographic seizures and no epileptiform activity noted. at 0803 RPT #: [id number] END OF REPORT [facility] 2024-10-20 17:13:00 [facility] ([facility]) Pulmonary Consultation Note REPORT#:[id number] REPORT STATUS: Signed REPORT INITIALIZATION DATE:10/20/24 TIME:1712 PATIENT: HEATHER TURNER UNIT #: [id number] RO[address]BED: [address] : [birth year] AGE: 54 SEX: F ATTEND: Segundo Toledo MD ADM AUTHOR: Mariano Tong MD REPT SERVICE DT/TIME: 10/20/241712 * ALL edits or amendments must be made on the electronic/computer document * History of Present Illness HPI HPI: 54 y/o F with PMH of HTN, T2DM, PR 20 yrs ago, no stent, CVA with subsequent seizure, and bipolar was transferred from [facility] for seizure eval and management. mood improved but experienced 9 seizures in the [facility] and 3 witnessed en route to [facility] ED. In the ED, she received IV benzodiazepine and IV fosphenytoin with resolution of seizures. CT brain: negative for acute findings. Lab results showed elevated lactic acid initially 3.1. Patient tested positive for flu. CXR: negative. patient reported chest congestion [facility] she developed recurrent seizures unresolved and was upgraded as status History - Adult longitudinal Additional medical history: HTN, T2DM, PR, CVA with subsequent seizure, and bipolar, radiculopathy Additional surgical history: Cholecystectomy, right foot surgeries, cervical spine laminectomy, lumbar spine laminectomy, appendectomy, tonsillectomy Additional family history: Noncontributory Alcohol use: Denies EtOH use Drug use: Denies recreational drugs Smoking status for patients 13 years old or older: Current every day smoker Date last smoked: 10/17/24 Packs per day: 1 Pack years: 0 Allergies: Coded Allergies: levetiracetam (From [facility]) (Severe, "MAKES ME FEEL FUNNY" 10/18/24) Objective Physical Exam Vitals: Last Documented: Result Date Time Pulse Ox 96 10/20 1701 B/P 138/82 10/20 1701 B/P Mean 104 10/20 1701 Pulse 86 10/20 1701 Resp 20 10/20 1701 O2 Delivery Nasal cannula 10/20 1400 O2 Flow Rate 3 10/20 1400 Temp 36.7 10/20 1200 FiO2 28 10/20 1100 General appearance: confused Neck: full range of motion, non-tender Cardiovascular: normal heart sounds, normal S1/S2, regular rate rhythm Respiratory/chest: aerating well Abdomen: soft, non-tender Extremities: no clubbing, no cyanosis Results Findings/Data: Laboratory Tests 10/20/24 1201: [Embedded Image Not Available] Laboratory Tests 10/20 10/20 10/20 10/20 10/19 1645 1201 1059 0743 2147 Chemistry POC Glucose (70 - 110 mg/dL) 84 121 H 85 77 95 Laboratory Tests 10/20 1201 Hematology WBC (3.5 - 11.0 K/mm3) 7.8 RBC (4.70 - 6.10 M/mm3) 4.33 L Hgb (10.4 - 14.9 G/DL) 11.6 Hct (31.5 - 44.1 %) 38.4 MCV (84.5 - 98.6 Fl) 88.7 MCH (27.0 - 34.2 pg) 26.8 L MCHC (31.5 - 34.0 G/DL) 30.2 L RDW (11.5 - 14.5 SD) 16.3 H Plt Count (150 - 450 K/mm3) 350 MPV (7.0 - 10.5 fL) 7.60 Neut % (Auto) (40 - 76 %) 63.8 Lymph % (Auto) (20.5 - 51.1 %) 19.8 L Nye % (Auto) (1.7 - 9.3 %) 8.9 Eos % (Auto) (0.0 - 6.0 %) 1.8 Baso % (Auto) (0.0 - 2.0 %) 1.0 Neut # (Auto) (1.8 - 7.6 K/mm3) 5.0 Lymph # (Auto) (0.6 - 3.2 K/mm3) 1.6 Nye # (Auto) (0.3 - 1.1 K/mm3) 0.7 Eos # (Auto) (0.0 - 0.4 K/mm3) 0.1 Baso # (Auto) (0.0 - 0.1 K/mm3) 0.1 Abs Immat Gran (auto) (0.00 - 0.03 x10 3/uL) 0.37 H Immature Gran % (0.0 - 5.0 %) 4.7 Nucleated RBC % (0.0 - 1.0 /100WBC%) 0.0 Laboratory Tests 10/20 1201 Toxicology Phenytoin (10.0 - 20.0 mcG/ML) 13.3 Radiology Data: Recent Impressions: MAGNETIC [facility]ONANCE IMAGING - MRI BRAIN W WO CONT 10/19 1837 Report Impression - Status: SIGNED Entered: 10/20/2024 1138 IMPRESSION: 1. No MR explanation for the patient's seizures. 2. Normal evidence of acute intracranial ischemia or hemorrhage. 3. Negative for gliosis, mesiotemporal sclerosis or migrational abnormality. 4. Mild chronic white matter small vessel ischemic disease. Impression By: [email or web address] - Andrea Champagne M.D. Diagnosis, Assessment Plan Free Text DxA P Notes Free Text DxA P Notes: 1. Status epileptus 2 possible pneuomonia seem exa,omed neuro checks PRecedex drip Allegic to keppra On cecybex Ativan as needed Monitor closely in ICU will get CXR Will cover with antibiotics Aspiration precautions Keep NPO Supportive care Discussed with ICU team CC time 32 min at 1722 RPT #: [id number] END OF REPORT [facility] 2024-10-20 10:10:00 [facility] ([facility]) Hospitalist Progress Note REPORT#:[id number] REPORT STATUS: Signed REPORT INITIALIZATION DATE:10/20/24 TIME:1010 PATIENT: HEATHER TURNER UNIT #: [id number] ROOM/BED: [place] [address] : 72 AGE: 54 SEX: F ATTEND: Segundo Toledo MD ADM AUTHOR: Ignacio Langston MD REPT SERVICE DT/TIME: 10/20/24 1010 * ALL edits or amendments must be made on the electronic/computer document * See Addendum Subjective Chief complaint: Breakthrough seizures HPI: 54 y/o F with PMH of HTN, T2DM, PR 20 yrs ago, no stent, CVA with subsequent seizure, and bipolar was transferred from [facility] for seizure eval and management. Patient hospitalized in [facility] for 2 weeks due to severe depression and SI after loss of ; mood improved but experienced 9 seizures in the [facility] and 3 witnessed en route to [facility] ED. In the ED, she received IV benzodiazepine and IV fosphenytoin with resolution of seizures. CT brain: negative for acute findings. Lab results showed elevated lactic acid initially 3.1. Patient tested positive for flu. CXR: negative. Also received Tamiflu, azithromycin, ceftriaxone, and IV fluids. Vitals stable. Transferred here for neurology service. Currently, patient reports some chest congestion, otherwise no complaints. One-to-one sitters in place. Denies SI/HI. Free Text Subj Notes Free Text Subj Notes: I assumed care of patient today 10/20/2024 Patient seen at bedside Patient was transferred from [facility] facility for neuro eval Patient with recurrent seizure despite being on home med Labs are pending MRI is pending Patient is on morphine for pain Patient is also on midodrine Patient complaining of back pain Morphine reduced to 2 mg IV as needed Patient had multiple seizure like activity this morning Case discussed with skoog machine operator and neurology Dilantin IV is ordered per neurology recommendation Patient transferred to ICU for possible Objective General Medications: Active Meds + DC'd Last 24 Hrs Phenytoin Sodium (DILANTIN) 100 MG TID PO (PEND) Fosphenytoin Sodium (Cerebyx) 500 MG ONCE ONE IV (PEND) Methylprednisolone Sodium Succinate (Solu-MEDROL) 125 MG ONCE ONE IV ( CAN) Phenytoin Sodium (DILANTIN) 500 MG ONCE ONE IV (PEND) Mupirocin (BACTROBAN) 1 APPLIC DAILY NASAL Morphine Sulfate (morphine Sulfate) 2 MG Q4H PRN PRN IV Albumin Human (Albumin 25%) 25 GM Q8H IV Guaifenesin (ROBITUSSIN) 200 MG Q4H PRN PRN PO Gadoterate Meglumine (Dotarem) 15 ML .STK-MED ONE IV (DC) Albumin Human (Albumin 25%) 25 GM Q8H IV (DC) Midodrine (PROAMATINE) 5 MG TID PO Lorazepam (ATIVAN) 1 MG ONCE ONE IV (DC) Morphine Sulfate (morphine Sulfate) 4 MG Q4H PRN PRN IV (DC) Melatonin (Melatonin) 5 MG BEDTIME PO Diphenhydramine HCl (BENADRYL) 25 MG Q4H PRN PRN PO Gabapentin (NEURONTIN) 300 MG TID PO Cyclobenzaprine HCl (FLEXERIL) 10 MG BID PO Acetaminophen/Codeine Phosphate (TYLENOL W CODEINE NO.3) 1 TAB Q6H PRN PRN PO Fosphenytoin Sodium (Cerebyx) 100 MG Q12HR IV Sodium Chloride (0.9% Sodium Chloride) 50 ML Oseltamivir Phosphate (TAMIFLU) 75 MG Q12HR PO Polyethylene Glycol (MIRALAX) 17 GM DAILY PO Insulin Human Lispro (Admelog) ASDIRECTED AC HS SUBQ Enoxaparin Sodium (lovENOX) 40 MG Q24H SUBQ Acetaminophen (TYLENOL) 650 MG Q4H PRN PRN PO Bisacodyl (DULCOLAX) 10 MG DAILY PRN PRN PO Dextrose/Water (DEXTROSE 10% IN WATER 250 ML) 125 ML ASDIR PRN IV Dextrose/Water (DEXTROSE 10% IN WATER 250 ML) 250 ML ASDIR PRN IV Glucagon (GLUCAGON) 1 MG ASDIR PRN IM Hydralazine HCl (APRESOLINE) 10 MG Q6H PRN PRN IV Lorazepam (ATIVAN) 2 MG Q6H PRN PRN IV Ondansetron HCl (ZOFRAN) 4 MG Q4H PRN PRN IV Physical Exam Head/Eyes: atraumatic, clear cornea, EOMI, PERRL Neck: full range of motion, non-tender, normal thyroid Cardiovascular: normal capillary refill, normal heart sounds, regular rate rhythm Respiratory: aerating well, clear to auscultation, symmetric expansion Abdomen: non-tender, normal bowel sounds, soft Neuro/CEMETERY COUNSELOR: alert, oriented X 3, normal speech Skin: dry, intact, normal color Psychiatry: anxious Free Text Obj Notes Free Text Obj Notes: Gen: A O x 3, no acute distress, MS normal, no respiratory distress. HEENT: Atraumatic, normocephalic. ENT: Moist mucosal membranes. Neck: Non-tender, no JVD, no masses or swelling. CV: Normal capillary refill, normal heart sounds, regular rate rhythm, no ectopy, no gallop. Resp: Aerating well, clear to auscultation, symmetric expansion, no distress. Abd: Non-tender, normal bowel sounds, soft, no distention. : No flank pain. Extremities: Moves all, normal ROM, no cyanosis, no edema. MS: Normal inspection, no CVA tenderness. Neuro/CEMETERY COUNSELOR: A O x 3, normal speech, no motor deficits, no sensory deficits. Skin: Normal color, normal temp, no rash. Lymph: Neck normal. Psych: Normal affect. Diagnosis, Assessment Plan Free Text DxA P Notes Free text DxA P notes: 54 y/o F with PMH of HTN, T2DM, PR 20 yrs ago, no stent, CVA with subsequent seizure, and bipolar disorder admitted for the following; 1. Recurrent seizure Patient has history of seizure Upgraded to ICU Continue Ativan as needed Patient is presently on Celebyx Dilantin loading dose is ordered per neurology recommendation Loading dose of Dilantin per recommendation from neurologist OSH CT neg acute findings MRI of the brain is pending Management of seizure per neurologist. Lead Radiation Therapist also consulted appreciate input EEG 2. Flu B positive Tamiflu, symptom management 3. Bipolar with depression with suicidal ideation, not active Continue necessary home med when available in EMR and when able to swallow HCAT evaluation once medically cleared 4. DM2 SSI 5. Hypertension PRN hydralzine 6. hx of CVA with no residual deficit resume home med 7.. hx of PR, no stents resume home med 8. Hyperlipidemia resume statin tx 9. Chronic back pain s/p lumbar and cervical spine laminectomy Continue home med when available in EMR pain control, reduced morphine dose Diet - n.p.o. for now D5 NS while n.p.o. DVT ppx: Lovenox Full code Dispo H CAT evaluation once medically cleared Case discussed with skoog machine operator and neurologist. Case discussed with nursing staff. at 1329 Addendum 1: 10/20/24 1330 by Ignacio Langston MD MRI IS DONE -No MR explanation for the patient's seizures. Normal evidence of acute intracranial ischemia or hemorrhage. Negative for gliosis, mesiotemporal sclerosis or at 1331 RPT #: [id number] END OF REPORT [facility] 2024-10-18 13:00:00 [facility] ([facility]) Electroencephalogram-EEG REPORT#:[id number] REPORT STATUS: Signed REPORT INITIALIZATION DATE:10/18/24 TIME:1300 PATIENT: HEATHER TURNER UNIT #: [id number] ROOM/BED: [place] [address] : 72 AGE: 54 SEX: F ATTEND: Segundo Toledo MD ADM AUTHOR: Martín Bone MD REPT SERVICE DT/TIME: 10/18/24 1300 * ALL edits or amendments must be made on the electronic/computer document * Procedure HPI PCP: PCP: Undefined Provider Sleep deprived: no Medications: Current Hospital Medications: Ahfs Category Unknown Sig/Sanchez Start time Last Medication Dose Route Stop Time Status Admin Melatonin 5 MG BEDTIME 10/18 2100 AC (Melatonin) PO 11/17 205 Anti-Infective Agents Sig/Sanchez Start time Last Medication Dose Route Stop Time Status Admin Oseltamivir Phosphate 75 MG Q12HR 10/18 1000 AC 10/18 (TAMIFLU) PO 10/22 2201 1019 Autonomic Drugs Sig/Sanchez Start time Last Medication Dose Route Stop Time Status Admin Cyclobenzaprine HCl 10 MG BID 10/18 1217 AC (FLEXERIL) PO 11/17 1216 Blood Formation,Coagulation Sig/Sanchez Start time Last Medication Dose Route Stop Time Status Admin Enoxaparin Sodium 40 MG Q24H 10/18 0513 AC 10/18 (lovENOX) SUBQ 11/01 0512 0613 Cardiovascular Drugs Sig/Sanchez Start time Last Medication Dose Route Stop Time Status Admin Hydralazine HCl 10 MG Q6H PRN PRN 10/18 0245 AC (APRESOLINE) IV 11/17 0244 Central Nervous System Agents Sig/Sanchez Start time Last Medication Dose Route Stop Time Status Admin Gabapentin 300 MG TID 10/18 1300 AC (NEURONTIN) PO 11/17 1259 Acetaminophen/ 1 TAB Q6H PRN PRN 10/18 1215 AC Codeine Phosphate PO 10/28 1214 (TYLENOL W CODEINE NO.3) Morphine Sulfate 4 MG ONCE ONE 10/18 1215 DC (morphine SULFATE) IV 10/18 1216 Fosphenytoin Sodium 100 MG Q12HR 10/18 1000 CAN (Cerebyx) IV 11/17 0959 Fosphenytoin Sodium 100 MG Q12HR 10/18 1000 AC 10/18 (Cerebyx) IV 11/17 0959 1020 Sodium Chloride 50 ML (0.9% Sodium Chloride) Hydrocodone Bitart/ 1 TAB Q4H PRN PRN 10/18 0345 DC 10/18 Acetaminophen PO 10/28 0344 1019 (NORCO 5/325) Acetaminophen 650 MG Q4H PRN PRN 10/18 0245 AC (TYLENOL) PO 11/17 0244 Lorazepam 2 MG Q6H PRN PRN 10/18 0245 AC (ATIVAN) IV 11/17 0244 Acetaminophen 975 MG X1ED STA 10/18 0136 DC 10/18 (TYLENOL) PO 10/18 0137 0146 Electrolytic, Caloric, And Bhanu Sig/Sanchez Start time Last Medication Dose Route Stop Time Status Admin Dextrose/Water 125 ML ASDIR PRN 10/18 0245 AC (DEXTROSE 10% IN IV 11/17 0244 WATER 250 ML) Dextrose/Water 250 ML ASDIR PRN 10/18 0245 AC (DEXTROSE 10% IN IV 11/17 0244 WATER 250 ML) Gastrointestinal Drugs Sig/Sanchez Start time Last Medication Dose Route Stop Time Status Admin Polyethylene Glycol 17 GM DAILY 10/18 0900 AC (MIRALAX) PO 11/17 0859 Bisacodyl 10 MG DAILY PRN PRN 10/18 0245 AC (DULCOLAX) PO 11/17 0244 Ondansetron HCl 4 MG Q4H PRN PRN 10/18 0245 AC (ZOFRAN) IV 11/17 0244 Hormones And Synthetic Substit Sig/Sanchez Start time Last Medication Dose Route Stop Time Status Admin Insulin Human Lispro See Dose AC HS 10/18 0730 AC (Admelog) Insts (1) SUBQ 05/01 0729 Glucagon 1 MG ASDIR PRN 10/18 244 AC (GLUCAGON) IM 11/18 243 Dose Instructions: (1)Insulin Human Lispro (Admelog): ASDIRECTED Procedure Date of procedure: 10/18/24 Procedure performed: extended EEG>60m no video Indication: altered mental status, seizure, syncope Procedure description: 18 channels of at least 61-minute EEG recording utilizing international 10/20 system done today. EEG data was digitally acquired and analyzed. EKG strip is abnormal please correlate with twelve-lead EKG. Findings: Background activity consists of disorganized 9 Hz waveforms noted over both posterior quadrants. 6 to 7 Hz waveforms were seen over both hemispheres. Activation: Unremarkable Sleep: Awake and asleep Impression/Conclusion: This EEG shows mild nonspecific cerebral dysfunction. No electrographic seizures and no epileptiform activity noted. at 2124 RPT #: [id number] END OF REPORT [facility] 2024-10-18 12:09:00 [facility] Hospitalist Progress Note REPORT#:[id number] REPORT STATUS: Signed REPORT INITIALIZATION DATE:10/18/24 TIME:120 PATIENT: HEATHER TURNER UNIT #: [id number] ROOM/BED: [place] [address] : 72 AGE: 54 SEX: F ATTEND: Segundo Toledo MD ADM AUTHOR: Sheeba Bonds MSN REPT SERVICE DT/TIME: 10/18/24 1209 * ALL edits or amendments must be made on the electronic/computer document * Sheeba Bonds 10/18/24 1209: Subjective Chief complaint: Breakthrough seizures HPI: 54 y/o F with PMH of HTN, T2DM, PR 20 yrs ago, no stent, CVA with subsequent seizure, and bipolar was transferred from [facility] for seizure eval and management. Patient hospitalized in [facility] for 2 weeks due to severe depression and SI after loss of ; mood improved but experienced 9 seizures in the [facility] and 3 witnessed en route to [facility] ED. In the ED, she received IV benzodiazepine and IV fosphenytoin with resolution of seizures. CT brain: negative for acute findings. Lab results showed elevated lactic acid initially 3.1. Patient tested positive for flu. CXR: negative. Also received Tamiflu, azithromycin, ceftriaxone, and IV fluids. Vitals stable. Transferred here for neurology service. Currently, patient reports some chest congestion, otherwise no complaints. One-to-one sitters in place. Denies SI/HI. Review of Systems Musculoskeletal: Reports: extremity pain, joint pain, lumbar pain. All systems rev neg: except as noted Objective General VS/I O: Vital Signs: Date Time Temp Pulse Resp B/P B/P Pulse O2 O2 Flow FiO2 Mean Ox Delivery Rate 10/18 1101 98.8 89 14 150/104 96 Room air 10/18 0800 82 19 144/77 104 95 10/18 0709 19 10/18 0700 81 151/66 95 95 10/18 0602 18 10/18 0600 79 118/71 90 96 10/18 0538 19 10/18 0530 82 111/56 79 95 10/18 0504 21 10/18 0501 95 10/18 0500 76 108/55 78 10/18 0435 19 10/18 0430 84 116/67 86 95 / 0128 84 21 141/92 109 97 04/ 0106 98.6 79 18 119/86 98 Room air 24 hour I O ending at 0700: 10/18 0700 10/17 1900 Intake Total Output Total Balance Patient 160 lb Weight Weight Estimated Measurement Method PATIENT WEIGHT: Weight (lb): Weight (oz): Weight (kg): 72.727 Medications: Active Meds + DC'd Last 24 Hrs Cyclobenzaprine HCl (FLEXERIL) 10 MG BID PO (UNV) Melatonin (Melatonin) 5 MG BEDTIME PO Gabapentin (NEURONTIN) 300 MG TID PO (UNV) Acetaminophen/Codeine Phosphate (TYLENOL W CODEINE NO.3) 1 TAB Q6H PRN PRN PO (UNV) Morphine Sulfate (morphine SULFATE) 4 MG ONCE ONE IV (UNV) Fosphenytoin Sodium (Cerebyx) 100 MG Q12HR IV (CAN) Fosphenytoin Sodium (Cerebyx) 100 MG Q12HR IV Sodium Chloride (0.9% Sodium Chloride) 50 ML Oseltamivir Phosphate (TAMIFLU) 75 MG Q12HR PO Polyethylene Glycol (MIRALAX) 17 GM DAILY PO Insulin Human Lispro (Admelog) ASDIRECTED AC HS SUBQ Enoxaparin Sodium (lovENOX) 40 MG Q24H SUBQ Hydrocodone Bitart/Acetaminophen (NORCO 5/325) 1 TAB Q4H PRN PRN PO (DCr ) Acetaminophen (TYLENOL) 650 MG Q4H PRN PRN PO Bisacodyl (DULCOLAX) 10 MG DAILY PRN PRN PO Dextrose/Water (DEXTROSE 10% IN WATER 250 ML) 125 ML ASDIR PRN IV Dextrose/Water (DEXTROSE 10% IN WATER 250 ML) 250 ML ASDIR PRN IV Glucagon (GLUCAGON) 1 MG ASDIR PRN IM Hydralazine HCl (APRESOLINE) 10 MG Q6H PRN PRN IV Lorazepam (ATIVAN) 2 MG Q6H PRN PRN IV Ondansetron HCl (ZOFRAN) 4 MG Q4H PRN PRN IV Acetaminophen (TYLENOL) 975 MG X1ED STA PO (DC) Dietitian nutrition assessment The data set between the solid lines has been imported from the dietitian's assessment. BMI Calculated: 26.7 Nutrition related diagnosis: Nutrition diagnosis details: Nutrition problem: Nutrition etiology: Nutrition signs and symptoms: Nutrition prescription: Dietitian name: Assessment completed: Physical Exam General appearance: alert, awake, oriented Head/Eyes: atraumatic, clear cornea, EOMI, PERRL Neck: full range of motion, non-tender, normal thyroid Cardiovascular: normal capillary refill, normal heart sounds, regular rate rhythm Respiratory: aerating well, clear to auscultation, symmetric expansion Abdomen: non-tender, normal bowel sounds, soft Neuro/CEMETERY COUNSELOR: alert, oriented X 3, normal speech Skin: dry, intact, normal color Psychiatry: anxious Results Findings/Data: Laboratory Tests 10/18 10/18 10/18 0933 0422 0422 Chemistry Sodium (136 - 145 mmol/L) 143 Potassium (3.4 - 5.0 mmol/L) 3.7 Chloride (98 - 107 mmol/L) 108 H Carbon Dioxide (21 - 32 mmol/L) 26 Anion Gap (4 - 15 GAP calc) 9 BUN (7 - 18 MG/DL) 9 Creatinine (0.6 - 1.0 MG/DL) 0.7 Glomerular Filtr Rate (>60 estGFR) >=60 max estimate Glucose (70 - 110 MG/DL) 70 POC Glucose (70 - 110 mg/dL) 91 Lactic Acid (0.4 - 1.9 mmol/L) 1.1 Calcium (8.5 - 10.1 MG/DL) 7.4 L Laboratory Tests 10/18 0422 Hematology WBC (3.5 - 11.0 K/mm3) 9.2 RBC (4.70 - 6.10 M/mm3) 3.99 L Hgb (10.4 - 14.9 G/DL) 10.7 Hct (31.5 - 44.1 %) 35.1 MCV (84.5 - 98.6 Fl) 88.0 MCH (27.0 - 34.2 pg) 26.8 L MCHC (31.5 - 34.0 G/DL) 30.5 L RDW (11.5 - 14.5 SD) 16.4 H Plt Count (150 - 450 K/mm3) 326 MPV (7.0 - 10.5 fL) 8.20 Add Manual Diff (CRITERIA DIFF/SCN) YES Seg Neutrophils % (40 - 75 %) 61 Lymphocytes % (Manual) (18.7 - 40.6 %) 30 Atypical Lymphs % (0 - 0 %) 3 H Monocytes % (Manual) (3.8 - 11.4 %) 3 L Eosinophils % (Manual) (0.0 - 4.1 %) 3 Platelet Estimate (ADEQUATE THOUSAND) ADEQUATE Plt Morphology Comment NORMAL Anisocytosis (NONE) NORMAL Free Text Obj Notes Free Text Obj Notes: Gen: A O x 3, no acute distress, MS normal, no respiratory distress. HEENT: Atraumatic, normocephalic. ENT: Moist mucosal membranes. Neck: Non-tender, no JVD, no masses or swelling. CV: Normal capillary refill, normal heart sounds, regular rate rhythm, no ectopy, no gallop. Resp: Aerating well, clear to auscultation, symmetric expansion, no distress. Abd: Non-tender, normal bowel sounds, soft, no distention. : No flank pain. Extremities: Moves all, normal ROM, no cyanosis, no edema. MS: Normal inspection, no CVA tenderness. Neuro/CEMETERY COUNSELOR: A O x 3, normal speech, no motor deficits, no sensory deficits. Skin: Normal color, normal temp, no rash. Lymph: Neck normal. Psych: Normal affect. Diagnosis, Assessment Plan Free Text DxA P Notes Free text DxA P notes: 54 y/o F with PMH of HTN, T2DM, PR 20 yrs ago, no stent, CVA with subsequent seizure, and bipolar disorder admitted for the following; 1. Breakthrough seizure, in the setting of history of seizure and likely triggered by infection OSH CT neg acute findings Ativan as needed, start fosphenytoin (allergic to keppra) neurology consult Seizure precautions 2. Flu B positive Start Tamiflu, symptom management 3. hx of seizure Home medication list to reconcile 4. Bipolar with depression with suicidal ideation, not active Continue seizure HCAT evaluation once medically cleared 5. DM2 ACHS SSI 6. Hypertension PRN hydralzine 7. hx of CVA with no residual deficit resume home med 8. hx of PR, no stents resume home med 9. Hyperlipidemia resume statin tx 10. Chronic back pain s/p lumbar and cervical spine laminectomy pain control DVT ppx: Lovenox Full code Home medicatiions list pending receipt from [facility] at 1211 at 1213 RPT #: [id number] END OF REPORT [facility] 2024-10-18 10:16:00 [facility] ([facility]) Neurology Consultation Note REPORT#:[id number] REPORT STATUS: Signed REPORT INITIALIZATION DATE:10/18/24 TIME:1016 PATIENT: HEATHER TURNER UNIT #: [id number] ROOM/BED: [place] [id number] : 72 AGE: 54 SEX: F ATTEND: Segundo Toledo MD ADM AUTHOR: Martín Bone MD REPT SERVICE DT/TIME: 10/18/24 1016 * ALL edits or amendments must be made on the electronic/computer document * History of Present Illness HPI HPI: 54-year-old female with history of diabetes, obesity, hypertension, PR 20 years ago, stroke with subsequent seizure and seizure disorder reduced to follow-up with a neurologist in [place] but has been noncompliant with medication as well as follow-up, bipolar disorder transferred from [facility] for seizure evaluation and management. Patient hospitalized with severe depression and psychosis at a [facility] facility. She reportedly had depression and suicidal ideation after loss of . Patient's mood improved but experienced 9 seizures in the [facility] hospital. She had 3 witnessed seizures and route to [facility] as well. At [facility] she received IV benzodiazepines and IV fosphenytoin with resolution of the seizures. CT brain reported as negative for acute findings. Labs showed elevated lactic acid initially 3.1. Patient tested positive for flu. No meningeal signs. Chest x- ray negative. Received Tamiflu and Zithromax ceftriaxone IV fluids. Transferred here because there is no neurologist at the other hospital. Currently patient reports some congestion but she is fine no seizures. No lateralized neurological deficits. History Additional medical history: HTN, T2DM, PR, CVA with subsequent seizure, and bipolar, radiculopathy Additional surgical history: Cholecystectomy, right foot surgeries, cervical spine laminectomy, lumbar spine laminectomy, appendectomy, tonsillectomy Additional family history: Noncontributory Alcohol use: Denies EtOH use Drug use: Denies recreational drugs Smoking status for patients 13 years old or older: Never Smoker Medication/Allergy-Vaccine Hx Medications: Current Hospital Medications: History - Adult longitudinal Additional medical history: HTN, T2DM, PR, CVA with subsequent seizure, and bipolar, radiculopathy Additional surgical history: Cholecystectomy, right foot surgeries, cervical spine laminectomy, lumbar spine laminectomy, appendectomy, tonsillectomy Additional family history: Noncontributory Alcohol use: Denies EtOH use Drug use: Denies recreational drugs Smoking status for patients 13 years old or older: Current every day smoker Date last smoked: 10/17/24 Packs per day: 1 Pack years: 0 Allergies: Coded Allergies: levetiracetam (From [facility]) (Severe, "MAKES ME FEEL FUNNY" 10/18/24) Review of Systems All systems rev neg: except as marked Objective General VS: Last Documented: Result Date Time Pulse Ox 95 10/18 0800 B/P 144/77 10/18 0800 B/P Mean 104 10/18 0800 Pulse 82 10/18 0800 Resp 19 10/18 0800 O2 Delivery Room air 10/18 105 Temp 37.0 10/18 105 PATIENT WEIGHT: Weight (lb): Weight (oz): Weight (kg): 72.727 Medications Active Meds + DC'd Last 24 Hrs Melatonin (Melatonin) 5 MG BEDTIME PO Fosphenytoin Sodium (Cerebyx) 100 MG Q12HR IV (CAN) Fosphenytoin Sodium (Cerebyx) 100 MG Q12HR IV Sodium Chloride (0.9% Sodium Chloride) 50 ML Oseltamivir Phosphate (TAMIFLU) 75 MG Q12HR PO Polyethylene Glycol (MIRALAX) 17 GM DAILY PO Insulin Human Lispro (Admelog) ASDIRECTED AC HS SUBQ Enoxaparin Sodium (lovENOX) 40 MG Q24H SUBQ Hydrocodone Bitart/Acetaminophen (NORCO 5/325) 1 TAB Q4H PRN PRN PO Acetaminophen (TYLENOL) 650 MG Q4H PRN PRN PO Bisacodyl (DULCOLAX) 10 MG DAILY PRN PRN PO Dextrose/Water (DEXTROSE 10% IN WATER 250 ML) 125 ML ASDIR PRN IV Dextrose/Water (DEXTROSE 10% IN WATER 250 ML) 250 ML ASDIR PRN IV Glucagon (GLUCAGON) 1 MG ASDIR PRN IM Hydralazine HCl (APRESOLINE) 10 MG Q6H PRN PRN IV Lorazepam (ATIVAN) 2 MG Q6H PRN PRN IV Ondansetron HCl (ZOFRAN) 4 MG Q4H PRN PRN IV Acetaminophen (TYLENOL) 975 MG X1ED STA PO (DC) Total time spent today on this very ill patient was 110 minutes Time spent includes counselling and coordination of care including discussions with family, physician, referring physician, staff and consultants.Time spent also includes Patient management by me, Time spent at bedside, Reviewing test results, Reviewing imaging, Reviewing old and new records, Discussing patient care, Documentation in record, Time with family/surrogate... Nutrition asessment: The data set between the solid lines has been imported from the dietitian's assessment. BMI Calculated: 26.7 Nutrition related diagnosis: Nutrition diagnosis details: Nutrition problem: Nutrition etiology: Nutrition signs and symptoms: Nutrition prescription: Dietitian name: Assessment completed: Physical Exam General appearance: awake Head/Eyes: atraumatic ENT: moist mucosal membranes Neck: supple/no meningismus Cardiovascular: regular rate and rhythm Respiratory: no distress Abdomen: soft Extremities: pulses present Musculoskeletal: full range of motion Neuro/CEMETERY COUNSELOR: gait abnormality, alert, oriented X 4, normal speech, EOMI, PERRL, CN II-XII intact, reflexes equal bilat, no motor deficits, no sensory deficits, no cerebellar deficits Neuro comment: Patient alert oriented normal language memory fund of knowledge denies any suicidal or homicidal ideation. EOMI PERRLA Sensation normal in face No facial asymmetry Uvula midline Gag positive Tongue midline Shoulder shrug is normal Motor: Moves all extremities equally 5/5 Sensory symmetric to pinprick Deep and reflexes 2 Plantars are flexor No past-pointing Gait: Abnormal tandem gait Skin: dry, intact Results Findings/Data: Laboratory Tests 10/18 10/18 10/18 0933 0422 0422 Chemistry Sodium (136 - 145 mmol/L) 143 Potassium (3.4 - 5.0 mmol/L) 3.7 Chloride (98 - 107 mmol/L) 108 H Carbon Dioxide (21 - 32 mmol/L) 26 Anion Gap (4 - 15 GAP calc) 9 BUN (7 - 18 MG/DL) 9 Creatinine (0.6 - 1.0 MG/DL) 0.7 Glomerular Filtr Rate (>60 estGFR) >=60 max estimate Glucose (70 - 110 MG/DL) 70 POC Glucose (70 - 110 mg/dL) 91 Lactic Acid (0.4 - 1.9 mmol/L) 1.1 Calcium (8.5 - 10.1 MG/DL) 7.4 L Laboratory Tests 10/18 0422 Hematology WBC (3.5 - 11.0 K/mm3) 9.2 RBC (4.70 - 6.10 M/mm3) 3.99 L Hgb (10.4 - 14.9 G/DL) 10.7 Hct (31.5 - 44.1 %) 35.1 MCV (84.5 - 98.6 Fl) 88.0 MCH (27.0 - 34.2 pg) 26.8 L MCHC (31.5 - 34.0 G/DL) 30.5 L RDW (11.5 - 14.5 SD) 16.4 H Plt Count (150 - 450 K/mm3) 326 MPV (7.0 - 10.5 fL) 8.20 Add Manual Diff (CRITERIA DIFF/SCN) YES Seg Neutrophils % (40 - 75 %) 61 Lymphocytes % (Manual) (18.7 - 40.6 %) 30 Atypical Lymphs % (0 - 0 %) 3 H Monocytes % (Manual) (3.8 - 11.4 %) 3 L Eosinophils % (Manual) (0.0 - 4.1 %) 3 Platelet Estimate (ADEQUATE THOUSAND) ADEQUATE Plt Morphology Comment NORMAL Anisocytosis (NONE) NORMAL Diagnosis, Assessment Plan Orders: Procedure Date/time Status EEG GREATER THAN 1 [place] [address] 10/18 UNK Active Free Text DxA P Notes: 54-year-old female with history of diabetes, obesity, hypertension, PR 20 years ago, stroke with subsequent seizure and seizure disorder reduced to follow-up with a neurologist in [place] but has been noncompliant with medication as well as follow-up, bipolar disorder transferred from [facility] for seizure evaluation and management. Patient hospitalized with severe depression and psychosis at a [facility] facility. She reportedly had depression and suicidal ideation after loss of . Patient's mood improved but experienced 9 seizures in the [facility] hospital. She had 3 witnessed seizures and route to [facility] as well. At [facility] ER she received IV benzodiazepines and IV fosphenytoin with resolution of the seizures. CT brain reported as negative for acute findings. Labs showed elevated lactic acid initially 3.1. Patient tested positive for flu. No meningeal signs. Chest x- ray negative. Received Tamiflu and Zithromax ceftriaxone IV fluids. Transferred here because there is no neurologist at the other hospital. Currently patient reports some congestion but she is fine no seizures. No lateralized neurological deficits. History Additional medical history: HTN, T2DM, PR, CVA with subsequent seizure, and bipolar, radiculopathy Additional surgical history: Cholecystectomy, right foot surgeries, cervical spine laminectomy, lumbar spine laminectomy, appendectomy, tonsillectomy Additional family history: Noncontributory Alcohol use: Denies EtOH use Drug use: Denies recreational drugs Smoking status for patients 13 years old or older: Never Smoker Medication/Allergy-Vaccine Hx Medications: Current Hospital Medications: EEG: Sleep deprived: no Medications: Current Hospital Medications: Ahfs Category Unknown Sig/Sanchez Start time Last Medication Dose Route Stop Time Status Admin Melatonin 5 MG BEDTIME 10/18 2100 AC (Melatonin) PO 11/17 205 Anti-Infective Agents Sig/Sanchez Start time Last Medication Dose Route Stop Time Status Admin Oseltamivir Phosphate 75 MG Q12HR 10/18 1000 AC 10/18 (TAMIFLU) PO 10/22 2201 1019 Autonomic Drugs Sig/Sanchez Start time Last Medication Dose Route Stop Time Status Admin Cyclobenzaprine HCl 10 MG BID 10/18 1217 AC (FLEXERIL) PO 11/17 1216 Blood Formation,Coagulation Sig/Sanchez Start time Last Medication Dose Route Stop Time Status Admin Enoxaparin Sodium 40 MG Q24H 10/18 0513 AC 10/18 (lovENOX) SUBQ 11/01 0512 0613 Cardiovascular Drugs Sig/Sanchez Start time Last Medication Dose Route Stop Time Status Admin Hydralazine HCl 10 MG Q6H PRN PRN 10/18 0245 AC (APRESOLINE) IV 11/17 0244 Central Nervous System Agents Sig/Sanchez Start time Last Medication Dose Route Stop Time Status Admin Gabapentin 300 MG TID 10/18 1300 AC (NEURONTIN) PO 11/17 1259 Acetaminophen/ 1 TAB Q6H PRN PRN 10/18 1215 AC Codeine Phosphate PO 10/28 1214 (TYLENOL W CODEINE NO.3) Morphine Sulfate 4 MG ONCE ONE 10/18 1215 DC (morphine SULFATE) IV 10/18 1216 Fosphenytoin Sodium 100 MG Q12HR 10/18 1000 CAN (Cerebyx) IV 11/17 0959 Fosphenytoin Sodium 100 MG Q12HR 10/18 1000 AC 10/18 (Cerebyx) IV 11/17 0959 1020 Sodium Chloride 50 ML (0.9% Sodium Chloride) Hydrocodone Bitart/ 1 TAB Q4H PRN PRN 10/18 0345 DC 10/18 Acetaminophen PO 10/28 0344 1019 (NORCO 5/325) Acetaminophen 650 MG Q4H PRN PRN 10/18 024 AC (TYLENOL) PO 11/17 024 Lorazepam 2 MG Q6H PRN PRN 10/18 0245 AC (ATIVAN) IV 11/17 0244 Acetaminophen 975 MG X1ED STA 10/18 0136 DC 10/18 (TYLENOL) PO 10/18 0137 0146 Electrolytic, Caloric, And Bhanu Sig/Sanchez Start time Last Medication Dose Route Stop Time Status Admin Dextrose/Water 125 ML ASDIR PRN 10/18 024 AC (DEXTROSE 10% IN IV 11/17 024 WATER 250 ML) Dextrose/Water 250 ML ASDIR PRN 10/18 024 AC (DEXTROSE 10% IN IV 11/17 024 WATER 250 ML) Gastrointestinal Drugs Sig/Sanchez Start time Last Medication Dose Route Stop Time Status Admin Polyethylene Glycol 17 GM DAILY 10/18 0900 AC (MIRALAX) PO 11/17 0859 Bisacodyl 10 MG DAILY PRN PRN 10/18 024 AC (DULCOLAX) PO 11/17 0244 Ondansetron HCl 4 MG Q4H PRN PRN 10/18 0245 AC (ZOFRAN) IV 11/17 0244 Hormones And Synthetic Substit Sig/Sanchez Start time Last Medication Dose Route Stop Time Status Admin Insulin Human Lispro See Dose AC HS 10/18 0730 AC (Admelog) Insts (1) SUBQ 11/17 07 Glucagon 1 MG ASDIR PRN 10/18 024 AC (GLUCAGON) IM 11/17 024 Dose Instructions: (1)Insulin Human Lispro (Admelog): ASDIRECTED Procedure Date of procedure: 10/18/24 Procedure performed: extended EEG>60m no video Indication: altered mental status, seizure, syncope Procedure description: 18 channels of at least 61-minute EEG recording utilizing international 10/20 system done today. EEG data was digitally acquired and analyzed. EKG strip is abnormal please correlate with twelve-lead EKG. Findings: Background activity consists of disorganized 9 Hz waveforms noted over both posterior quadrants. 6 to 7 Hz waveforms were seen over both hemispheres. Activation: Unremarkable Sleep: Awake and asleep Impression/Conclusion: This EEG shows mild nonspecific cerebral dysfunction. No electrographic seizures and no epileptiform activity noted. at 2124 Breakthrough seizures most likely related to noncompliance History of epilepsy and seizures History of bipolar disorder History of stroke History of coronary artery disease Hypertension Diabetes Obesity Flu Recommend: MRI brain Dilantin 300 mg daily Check Dilantin level and adjust dose accordingly Continue all psychotropics and antidepressants for now Check magnesium and correct all metabolic abnormalities Patient advised that she cannot drive considering the history of seizures. She is aware of [place] law and no driving for at least 6 months after last seizure Neurochecks Seizure precautions Thiamine 100 mg every 8 Target blood sugar is normal range Target hemoglobin A1c less than 5.8 Lipid panel and hemoglobin A1c, TSH, vitamin B12 Atorvastatin 40 mg daily keep LDL less than 70 Follow-up as outpatient as needed at 1622 RPT #: [id number] END OF REPORT [facility] 2024-10-18 03:25:00 [facility] ([facility]) Hospitalist History Physical REPORT#:[id number] REPORT STATUS: Signed REPORT INITIALIZATION DATE:10/18/24 TIME:324 PATIENT: HEATHER TURNER UNIT #: [id number] ROOM/BED: [place] [id number] : 72 AGE: 54 SEX: F ATTEND: Segundo Toledo MD ADM AUTHOR: Yahaira Stevenson APRNNP REPT SERVICE DT/TIME: 10/18/24324 * ALL edits or amendments must be made on the electronic/computer document * Yahaira Stevenson 10/18/24324: History of Present Illness HPI Chief complaint: Breakthrough seizures PCP: PCP: Undefined Provider HPI: 54 y/o F with PMH of HTN, T2DM, PR 20 yrs ago, no stent, CVA with subsequent seizure, and bipolar was transferred from [facility] for seizure eval and management. Patient hospitalized in [facility] for 2 weeks due to severe depression and SI after loss of ; mood improved but experienced 9 seizures in the [facility] and 3 witnessed en route to [facility] ED. In the ED, she received IV benzodiazepine and IV fosphenytoin with resolution of seizures. CT brain: negative for acute findings. Lab results showed elevated lactic acid initially 3.1. Patient tested positive for flu. CXR: negative. Also received Tamiflu, azithromycin, ceftriaxone, and IV fluids. Vitals stable. Transferred here for neurology service. Currently, patient reports some chest congestion, otherwise no complaints. One-to-one sitters in place. Denies SI/HI. History Additional medical history: HTN, T2DM, PR, CVA with subsequent seizure, and bipolar, radiculopathy Additional surgical history: Cholecystectomy, right foot surgeries, cervical spine laminectomy, lumbar spine laminectomy, appendectomy, tonsillectomy Additional family history: Noncontributory Alcohol use: Denies EtOH use Drug use: Denies recreational drugs Smoking status for patients 13 years old or older: Never Smoker Medication/Allergy-Vaccine Hx Medications: Current Hospital Medications: Ahfs Category Unknown Sig/Sanchez Start time Last Medication Dose Route Stop Time Status Admin Melatonin 5 MG BEDTIME 10/18 2100 AC (Melatonin) PO 11/17 205 Anti-Infective Agents Sig/Sanchez Start time Last Medication Dose Route Stop Time Status Admin Oseltamivir Phosphate 75 MG Q12HR 10/18 2200 UNV (TAMIFLU) PO 10/23 1001 Blood Formation,Coagulation Sig/Sanchez Start time Last Medication Dose Route Stop Time Status Admin Enoxaparin Sodium 40 MG Q24H 10/18 0245 UNV (lovENOX) SUBQ 11/01 0244 Cardiovascular Drugs Sig/Sanchez Start time Last Medication Dose Route Stop Time Status Admin Hydralazine HCl 10 MG Q6H PRN PRN 10/18 0245 AC (APRESOLINE) IV 11/17 0244 Central Nervous System Agents Sig/Sanchez Start time Last Medication Dose Route Stop Time Status Admin Fosphenytoin Sodium 100 MG Q12HR 10/18 1000 AC (Cerebyx) IV 11/17 0959 Acetaminophen 650 MG Q4H PRN PRN 10/18 0245 AC (TYLENOL) PO 11/17 0244 Lorazepam 2 MG Q6H PRN PRN 10/18 0245 AC (ATIVAN) IV 11/17 0244 Acetaminophen 975 MG X1ED STA 10/18 0136 DC 10/18 (TYLENOL) PO 10/18 013 0146 Electrolytic, Caloric, And Bhanu Sig/Sanchez Start time Last Medication Dose Route Stop Time Status Admin Dextrose/Water 125 ML ASDIR PRN 10/18 0245 AC (DEXTROSE 10% IN IV 11/18 243 WATER 250 ML) Dextrose/Water 250 ML ASDIR PRN 10/18 024 AC (DEXTROSE 10% IN IV 11/18 243 WATER 250 ML) Gastrointestinal Drugs Sig/Sanchez Start time Last Medication Dose Route Stop Time Status Admin Polyethylene Glycol 17 GM DAILY 10/18 0900 AC (MIRALAX) PO 11/17 0859 Bisacodyl 10 MG DAILY PRN PRN 10/18 244 AC (DULCOLAX) PO 11/17 024 Ondansetron HCl 4 MG Q4H PRN PRN 10/18 024 AC (ZOFRAN) IV 11/17 024 Hormones And Synthetic Substit Sig/Sanchez Start time Last Medication Dose Route Stop Time Status Admin Insulin Human Lispro See Dose AC HS 10/18 0730 AC (Admelog) Insts (1) SUBQ 11/17 0729 Glucagon 1 MG ASDIR PRN 10/18 244 AC (GLUCAGON) IM 11/17 024 Dose Instructions: (1)Insulin Human Lispro (Admelog): ASDIRECTED Allergies: Coded Allergies: levetiracetam (From [facility]) (Severe, "MAKES ME FEEL FUNNY" 10/18/24) Review of Systems Constitutional: malaise. Denies: chills, fever, generalized weakness, lethargy, recent wt loss. Skin: Denies: rash, swelling. Allergy/Immun: rhinorrhea. Denies: allergic reaction, itching, sneezing. Eyes: Denies: redness, discharge. ENT: sore throat. Respiratory: Denies: PETERSON (dyspnea on exertion), hemoptysis, non productive cough, pneumonia, SOB, wheezing. Cardiovascular: Denies: chest pain, PETERSON (dyspnea on exertion), edema, orthopnea, palpitations, parox nocturnal dyspnea. GI: Denies: abdominal pain, nausea, vomiting. : Denies: dysuria, flank pain. Musculoskeletal: lumbar pain, myalgias. Denies: arthritis, extremity pain, extremity swelling, joint pain, joint swelling, thoracic pain. Heme: Denies: bleeding. Endocrine: Denies: cold intolerance, heat intolerance. Neuro: seizure. Denies: dizziness, lightheaded, syncope, unable to speak, vision change. Psych: Denies: anxiety. Objective General VS/I O: Vital Signs: Date Time Temp Pulse Resp B/P B/P Pulse O2 O2 Flow FiO2 Mean Ox Delivery Rate 10/18 0128 84 21 141/92 109 97 10/18 0106 37.0 79 18 119/86 98 Room air 24 hour I O ending at 0700: 10/18 0700 10/17 1900 Intake Total Output Total Balance Patient 72.727 kg Weight Weight Estimated Measurement Method PATIENT WEIGHT: Weight (lb): Weight (oz): Weight (kg): 72.727 Medications: Active Meds + DC'd Last 24 Hrs Oseltamivir Phosphate (TAMIFLU) 75 MG Q12HR PO (UNV) Melatonin (Melatonin) 5 MG BEDTIME PO Fosphenytoin Sodium (Cerebyx) 100 MG Q12HR IV Polyethylene Glycol (MIRALAX) 17 GM DAILY PO Insulin Human Lispro (Admelog) ASDIRECTED AC HS SUBQ Acetaminophen (TYLENOL) 650 MG Q4H PRN PRN PO Bisacodyl (DULCOLAX) 10 MG DAILY PRN PRN PO Dextrose/Water (DEXTROSE 10% IN WATER 250 ML) 125 ML ASDIR PRN IV Dextrose/Water (DEXTROSE 10% IN WATER 250 ML) 250 ML ASDIR PRN IV Enoxaparin Sodium (lovENOX) 40 MG Q24H SUBQ (UNV) Glucagon (GLUCAGON) 1 MG ASDIR PRN IM Hydralazine HCl (APRESOLINE) 10 MG Q6H PRN PRN IV Lorazepam (ATIVAN) 2 MG Q6H PRN PRN IV Ondansetron HCl (ZOFRAN) 4 MG Q4H PRN PRN IV Acetaminophen (TYLENOL) 975 MG X1ED STA PO (DC) Free Text Obj Notes Free Text Obj Notes: Gen: A O x 3, no acute distress, MS normal, no respiratory distress. HEENT: Atraumatic, normocephalic. ENT: Moist mucosal membranes. Neck: Non-tender, no JVD, no masses or swelling. CV: Normal capillary refill, normal heart sounds, regular rate rhythm, no ectopy, no gallop. Resp: Aerating well, clear to auscultation, symmetric expansion, no distress. Abd: Non-tender, normal bowel sounds, soft, no distention. : No flank pain. Extremities: Moves all, normal ROM, no cyanosis, no edema. MS: Normal inspection, no CVA tenderness. Neuro/CEMETERY COUNSELOR: A O x 3, normal speech, no motor deficits, no sensory deficits. Skin: Normal color, normal temp, no rash. Lymph: Neck normal. Psych: Normal affect. Diagnosis, Assessment Plan Free Text DxA P Notes Free Text DxA P Notes: 54 y/o F with PMH of HTN, T2DM, PR 20 yrs ago, no stent, CVA with subsequent seizure, and bipolar disorder admitted for the following; 1. Breakthrough seizure, in the setting of history of seizure and likely triggered by infection OSH CT neg acute findings Ativan as needed, start fosphenytoin (allergic to keppra) neurology consult Seizure precautions 2. Flu B positive Start Tamiflu, symptom management 3. hx of seizure Home medication list to reconcile 4. Bipolar with depression with suicidal ideation, not active Continue seizure HCAT evaluation once medically cleared 5. DM2 ACHS SSI 6. Hypertension PRN hydralzine 7. hx of CVA with no residual deficit resume home med 8. hx of PR, no stents resume home med 9. Hyperlipidemia resume statin tx 10. Chronic back pain s/p lumbar and cervical spine laminectomy pain control DVT ppx: Lovenox Full code Home medicatiions list pending receipt from [facility] at 0347 at 1210 RPT #: [id number] END OF REPORT [facility] 2024-10-17 23:47:[address] [facility] ([facility]) EEG/Epilepsy Monitor Report REPORT #: [id number] REPORT STATUS: Signed DATE: 10/17/24 TIME: 2346 PATIENT: HEATHER TURNER UNIT #: [id number] ROOM #: BED: : 72 AGE: 54 SEX: F ATTEND: Gus Santamaria MD ADM DT: AUTHOR: Ivis Reeves MD ATTENTION *EDITS and/or ADDENDA must be made in Patient Keeper for this note. * * Edits and ammendments created in [employer]) are not visible * * in Patient Keeper or the legal medical record (HPF). * Note Date: 10/17/24 23:47 -- PROCEDURE -- PRE-PROCEDURE DIAGNOSIS: Seizure disorder POST-PROCEDURE DIAGNOSIS: Seizure disorder Interpreted by:Ivis Reeves MD COMMENTS: Start Time: 2024-10-17 21:11:24 End Time: 2024-10-17 23:15:45 Total EEG Duration: 02:04:21 (124 minutes) Description of procedure: This EEG was obtained using a 10 lead, 8 channel system positioned circumferentially without any parasagittal coverage (rapid EEG). Computer selected EEG is reviewed as well as background features and all clinically significant events. Clarity algorithm utilized and implemented to provide analysis of underlying activity and seizure/status detection used to facilitate reading. No clear posterior dominant rhythm. Significant artifact limits interpretation, especially in the latter part of the study, however no clear evidence of lateralizing or epileptiform features. Background appears within normal range. Impression: Technically limited study without evidence epileptiform activity. Comment: A negative EEG does not rule out the diagnosis of a seizure disorder; clinical correlation is advised. If there is still persistent suspicion for continued seizure-like activity, would advise obtaining an electroencephalogram with the 10-20 international system for improved spatial resolution and parasagittal coverage at 1414 ATTENTION *EDITS and/or ADDENDA must be made in Patient Keeper for this note. * * Edits and ammendments created in [employer] are not visible * * in Patient Keeper or the legal medical record (HPF). * [facility] #: [id number] END OF REPORT [facility] 2024-10-17 21:12:[address] [facility] ([facility]) EMERGENCY PROVIDER REPORT REPORT#:[id number] REPORT STATUS: Signed DATE:10/17/24 TIME: 2111 PATIENT: HEATHER TURNER UNIT #: [id number] ROOM: BED: : 72 AGE: 54 SEX: F PCP PHYS: Undefined Provider SERVICE AUTHOR: Gus Santamaria MD REP SRV REP SRV TM: 2111 * ALL edits or amendments must be made on the electronic/computer document * HPI-Seizure General Initial Greet Date/Time 10/17/241911 Presentation Chief Complaint Seizure, generalized Free Text HPI Notes Free Text HPI Notes 54-year-old female with history of seizure disorder, hypertension, DM, bipolar brought in by EMS from [facility] for evaluation of seizures. Per report patient had total of 9 seizures today and 3 witnessed by HFD. Given 1 of Versed with resolution of seizure. Patient takes valproic acid and reports compliance. Denies any fevers, chills, nausea vomiting, chest pain, abdominal pain. Patient uses wheelchair/walker at baseline. Review of Systems ROS Statements All systems rev neg except as marked. Focused Review of Systems Constitutional Denies: Fever. Cardiovascular Denies: Chest pain. Past Medical History - Adult Stated Complaint SEIZURES 9 Allergies Coded Allergies: levetiracetam (From [facility]) (Severe, UNCONSCIOUS 10/17/24) Pt reports no significant: Past surgical history, Social history Additional Medical History Seizures Plan: Hypertension DM Smoking status for patients 13 years old or older: Current every day smoker Physical Exam Vital Signs Vital Signs First Documented: Result Date Time Pulse Ox 95 10/18 1911 B/P 127/78 10/18 1911 B/P Mean 97 10/18 1911 O2 Delivery Nasal cannula 10/18 1911 Temp 37.0 10/18 1911 Pulse 108 10/18 1911 Resp 15 10/18 1911 O2 Flow Rate 2 10/17 1929 Last Documented: Result Date Time Pulse Ox 93 10/17 2110 B/P 140/70 10/17 2110 O2 Delivery Room air 10/17 2110 Temp 37.0 10/17 2110 Pulse 102 10/17 2110 Resp 18 10/17 2110 O2 Flow Rate 2 10/17 1929 B/P Mean 97 10/18 1911 Review of Vital Signs Reviewed Basic Physical Exam Basic PE HEAD: Atraumatic/NC, EYES: PERRL, conj clear, ENT: Membranes moist, ABD : Soft/non-tender, EXT: No gross abnormality, SKIN: No rashes, warm/dry, PSYCH: NL thought content Focused PE General/Const General/Const Awake, Alert, No acute distress, Cooperative MS Neck Neck Supple, No swelling Resp/Chest Respiratory/Chest Breath sounds NL, Breath sounds = bilat, No respiratory distress, No rales, No rhonchi, No wheezing Cardiovascular Cardiovascular Heart rate NL, Regular rhythm, Heart sounds NL, No gallop, No murmurs, No rubs Abdomen/GI Abdomen/GI Soft, Non-tender, No guarding, No rebound, No distention Neurologic Neurologic Oriented X3, Speech NL, CN II - XII intact Text/Dict Notes Bilateral upper and lower extremity strength equal Psychiatric Psychiatric Affect NL, Mood NL Interpretation Diagnostics Lab Results Interpretation Results Laboratory Tests 10/17/241926: [Embedded Image Not Available] Laboratory Tests: 10/17 Chemistry Sodium (136 - 145 mmol/L) 140 Potassium (3.5 - 5.1 mmol/L) 4.3 Chloride (98 - 107 mmol/l) 101 Carbon Dioxide (20 - 31 mmol/L) 27 BUN (9 - 23 mg/dL) 11 Creatinine (0.55 - 1.02 mg/dL) 0.80 Glomerular Filtr Rate (>60 mL/min) >=60 max estimate Glucose (74 - 106 mg/dL) 89 POC Glucose (70 - 105 MG/DL) 98 Calcium (8.7 - 10.4 mg/dL) 8.9 Total Bilirubin (0.3 - 1.2 mg/dL) < 0.2 L Direct Bilirubin (<0.3 mg/dL) < 0.1 AST (<34 U/L) 18 ALT (10 - 49 U/L) 9 L Total Alk Phosphatase (46 - 116 U/L) 71.0 Total Creatine Kinase (34 - 171 U/L) 230 H Troponin I High Sens (27.36 - 66.23 pg/mL) 7.5 L Total Protein (5.7 - 8.2 g/dL) 6.9 Albumin (3.2 - 4.8 g/dL) 4.2 Hematology WBC (4.8 - 10.8 x10 3/uL) 8.3 RBC (4.20 - 5.40 x10 6/uL) 4.44 Hgb (12.0 - 16.0 g/dL) 11.9 L Hct (37.0 - 47.0 %) 38.1 MCV (81.0 - 99.0 fL) 85.8 MCH (27 - 31 pg) 26.8 L MCHC (33 - 36.5 G/DL) 31.2 L RDW (12.9 - 16.9 %) 16.4 Plt Count (150 - 440 x10 3/uL) 377 MPV (8.9 - 12.4 fL) 7.9 L Total Counted (#CELLS) 100 Seg Neutrophils % (49 - 71 %) 59 Band Neutrophils % (0 - 5 %) 2 Lymphocytes % (Manual) (20 - 40 %) 12 L Atypical Lymphs % (0 - 1 %) 9 H Monocytes % (Manual) (3 - 8 %) 12 H Promyelocytes (0 - 0 %) 1 H Blast Cells (0 - 0 %) 5 H Toxicology Valproic Acid (50.0 - 100.0 mcg/mL) 100 Ethyl Alcohol (0 - 400 mg/dL) < 3 10/17 194 2309 Chemistry Lactic Acid (0.5 - 2.0 mmol/L) 3.10 *H 2.70 *H B-Natriuretic Peptide (<100 pg/mL) 44 Serology SARS-CoV-2 Ag (Rapid) (NEGATIVE) NEGATIVE Microbiology: Date/Time Procedure - Status Source Growth 10/17 1958 Blood Culture - RECD Blood 10/17 1958 Blood Culture Gram Stain - RECD Blood 10/18 1943 Influenza Virus Type B Antigen - COMP NASOPHARG 10/18 1943 Influenza Virus Type A Antigen - COMP NASOPHARG 10/18 1943 Blood Culture - RECD Blood 10/18 1943 Blood Culture Gram Stain - RECD Blood Recent Impressions: RADIOLOGY - XR CHEST 1 V 10/18 1939 Report Impression - Status: SIGNED Entered: 10/17/20241956 IMPRESSION: No radiographic evidence of acute cardiopulmonary process. Impression By: Lluvia RUSS M.D. CAT SCAN - CT HEAD/BRAIN W/O CONT 10/17 2009 Report Impression - Status: SIGNED Entered: 10/17/20242045 IMPRESSION: No evidence of acute intracranial abnormality or hemorrhage. Impression By: Lluvia RUSS M.D. Lab Imaging Statement Laboratory radiographic studies reviewed and considered in the medical decision-making. Re-Evaluation MDM Free Text MDM Notes Free Text MDM Notes Patient morbidly obese IBW calculate fluid resuscitation requirements. Patient IBW 50kg. Given 1L NS bolus, azithromycin within 250 mL NS, fosphenytoin within 400 mL NS Re-Evaluation/Progress #1 Text/Dict Note Discussed results of labs and imaging with patient. Patient had additional seizure while in ED, lasted less than a minute, 4 times resolved. Valproic acid at therapeutic levels, allergic to Keppra. Fosphenytoin initiated. Will admit for observation and neurology consultation. Patient consents to transfer. Accepted as transfer to [facility]. Time of Re-Eval 2314 Re-Eval Status Improved ED Course Medication(s) Ordered Medication(s) Ordered: Anti-Infective Agents Sig/Sanchez Start time Last Medication Dose Route Stop Time Status Admin Oseltamivir Phosphate 75 MG X1ED STA 10/17 2105 DC 10/17 PO 10/17 Azithromycin 500 MG X1ED STA 10/17 1934 DC 10/17 Sodium Chloride 250 ML IV 10/17 Ceftriaxone Sodium 1,000 MG X1ED STA 10/17 1934 DC 10/17 Sterile Water 10 ML IV 10/17 Central Nervous System Agents Sig/Sanchez Start time Last Medication Dose Route Stop Time Status Admin Fosphenytoin Sodium 1,500 MG X1ED STA 10/17 2042 DC 10/17 Sodium Chloride 100 ML IV 10/17 Electrolytic, Caloric, And Bhanu Sig/Sanchez Start time Last Medication Dose Route Stop Time Status Admin Sodium Chloride 1,000 ML X1ED STA 10/17 2351 DCr 10/18 IV 10/18 0950 0015 Sodium Chloride 500 ML X1ED STA 10/17 2114 DC 10/17 IV 10/17 Sodium Chloride 500 ML X1ED STA 10/17 2024 DC 10/17 IV 10/17 Free Text MDM Notes Free Text MDM Notes Based on clinical evaluation, this is not sepsis. Patient Discharge Departure Vital Signs/Condition Vital Signs First Documented: Result Date Time Pulse Ox 95 10/18 1911 B/P 127/78 10/18 1911 B/P Mean 97 10/18 1911 O2 Delivery Nasal cannula 10/18 1911 Temp 37.0 10/18 1911 Pulse 108 10/18 1911 Resp 15 10/18 1911 O2 Flow Rate 2 10/17 1929 Last Documented: Result Date Time Pulse Ox 93 10/17 2110 B/P 140/70 10/17 2110 O2 Delivery Room air 10/17 2110 Temp 37.0 10/17 2110 Pulse 102 10/17 2110 Resp 18 10/17 2110 O2 Flow Rate 2 10/17 1929 B/P Mean 97 10/18 1911 All vital signs available at the time of this entry have been reviewed. Condition Improved Clinical Impression Clinical Impression Primary Impression: Seizures Secondary Impressions: Influenza Time of Impression 2310 Disposition Decision Transfer )( Request Time 2112 )( Request Date 10/17/24 Transfer Accepted Yes Accepted by: Dr. Evans )( Acceptance Time 2222 )( Acceptance Date 10/17/24 Transfer Reason Neurology Patient Status Stable for transfer Patient Informed Yes Discharge/Care Plan Counseled Regarding Diagnosis, Lab results, Imaging studies, Need for admission Admit Note I have spoken with the patient and/or caregivers. I have explained the patient's condition, diagnoses and treatment plan based on the information available to me at this time. I have answered the patient's and/or caregiver's questions and addressed any concerns. The patient and/or caregivers have as good an understanding of the patient's diagnosis, condition and treatment plan as can be expected at this point. The patient has been stabilized within the capability of the emergency department. The patient will be transported for further care and management or will be moved to an observation or inpatient service. I have communicated with the staff or medical practitioner taking over this patient's care. at 0037 RPT #:[id number] END OF REPORT [facility] 2024-10-08 19:03:29 [facility] Scheduled Orders Name Type Priority Associated Diagnoses Orde r Schedule UA with culture if indicated Lab STAT STAT (Lab) for 1 Occurrences starting 10/08/2024 until 10/08/2024 ECG 12 lead ECG Routine Once for 1 Oc currences starting 10/08/2024 until 10/08/2024 Health Maintenance Due Date Last Done Comments CT Colonography 1972 Colonoscopy 1970 Colorectal Cancer Screening 1970 FIT-DNA 1970 FIT 1972 FOBT 1970 Sigmoidoscopy 1972 Annual Physical 01/14/1975 Diabetes: Foot Exam 01/14/1982 Diabetes: Retinopathy Screening 01/14/1982 DTaP/Tdap/Td Vaccines (1 - Tdap) 01/14/1991 Diabetes: Urine Protein Screening 01/14/1991 Hepatitis B Vaccines (1 of 3 - 19+ 3-dose series) 01/14/1991 Zoster Vaccines (1 of 2) 01/14/1991 Pap Smear 01/14/1993 Cervical Cancer Screening 01/14/2002 HPV/Cotest 01/14/2002 Mammogram 2012 Pneumococcal Vaccine: 50+ Years (2 of 2 - PCV) 12/15/2013 12/15/2012 Pneumococcal Vaccine: Pediatrics (0 to 5 Years) and At-Risk Patients (6 to 64 Years) (2 of 2 - PCV) 12/15/2013 12/15/2012 Influenza Vaccine (#1) 2024 07/10/2014 Diabetes: Hemoglobin A1C 05/24/2024 024, 06/14/2023, 04/13/2022 Lipid Panel 01/09/2025 01/10/2024, 05/0 11/2023, 08/02/2022, Additional history exists HIB Vaccines Aged Out No longer eligi [...] on patient's age to complete this topic [facility]32[facility] 19:03:29 Diagnosis Seizure-like activity (HCC) - Primary [facility]jqmrvn9108-36-80 19:03:29 [place] 254995-01-22 15:10:22* Consultation (Urgent) - Pending Review Specialty Diagnoses / Procedures Referred By Contac t Referred To Contact Neurology Diagnoses Breakthrough seizure (CMS/HCC) (HCC) Procedures [place] OFFICE/OUTPATIENT NEW HIGH MDM 60 MINUTES Dipak Colindres MD [address] [facility] [address] Phone: tel: fax: Referral ID Status Reason Start Date Expiration Date Visits Requested Visits Authorized [id number] Pending Review Specialty Services Required 08/10/2024 02/06/2025 1 1 CAL OFFICE PROFESSIONAL INSTRUCTOR* Consultation (Urgent) - Pending Review Specialty Diagnoses / Procedures Referred By Contac t Referred To Contact Family Medicine Diagnoses Breakthrough seizure (CMS/HCC) (HCC) Subdural hematoma (HCC) Closed head injury, initial encounter Nonintractable epilepsy without status epilepticus, unspecified epilepsy type (HCC) Procedures FL OFFICE/OUTPATIENT NEW HIGH MDM 60 MINUTES Dipak Colindres MD [address] [facility] [id number] [place] [address] Phone: tel: fax: Referral ID Status Reason Start Date Expiration Date Visits Requested Visits Authorized [id number] Pending Review Specialty Services Required 08/10/2024 02/06/2025 1 1 CAL OFFICE PROFESSIONAL INSTRUCTOR* Imaging (Routine) - Pending Review Specialty Diagnoses / Procedures Referred By Contac t Referred To Contact Radiology Procedures CT brain wo IV contrast Dipak Colindres MD [address] [facility] [address] [facility] [place] [address] Phone: tel: fax: Referral ID Status Reason Start Date Expiration Date V isits Requested Visits Authorized [id number] Pending Review 08/10/2024 02/06/2025 1 1 CAL OFFICE PROFESSIONAL INSTRUCTOR* Consultation (Urgent) - Pending Review Specialty Diagnoses / Procedures Referred By Justina lynn Referred To Contact Neurosurgery Diagnoses Subdural hematoma (HCC) Dipak Colindres MD [address] [facility] [id number] [place] [address] Phone: tel: fax: Referral ID Status Reason Start Date Expiration Date Visits Requested Visits Authorized [id number] Pending Review Specialty Services Required 08/10/2024 02/06/2025 1 1 CAL OFFICE PROFESSIONAL INSTRUCTOR [facility]Ewqnnst4593-49-26 15:10:22* [place] [id number] 15:10:22* Calculated C-SSRS Risk Score (Lifetime/Recent) Answer Date of Assessment Author No Risk Indicated 08/10/2024 8:53 AM Malinda Gates RN * [place] Suicide Severity Rating Scale (Screener/Recent Self-Report) Question Answer Date of Assessment Author 1. Wish to be (Past 1 Month) No 025 8:53 AM Malinda Gates RN 2. Non-Specific Active Suici tomy Thoughts (Past 1 Month) No 08/10/2024 8:53 AM Malinda Gates RN 6. Suicidal Behavior (Lifetime) No 8:53 AM MEDICAL OFFICE PROFESSIONAL INSTRUCTOR Malinda Buckley RN [place] [id number] 15:10:22* Loida Flores MD - 08/10/2024 12:37 PM MEDICAL OFFICE PROFESSIONAL INSTRUCTOR General Neurology Initial Consultation Note Name: Heather [...] Dr. Sandra Mahmood MD Resident Physician Neurology [facility] | [employer] Subjective History of Present Illness: Heather Turner [...] at outside hospitals. She was transferred to [facility] ED for a higher level of [...] Resource Strain: Low Risk (12/03/2023) Received from [facility] Overall Financial Resource Strain (CARDIA) Difficulty of Paying Living Expenses: Not very hard Food Insecurity: Food Insecurity Present (12/03/2023) Received from [facility] Hunger Vital Sign Worried About Running Out of Food in the Last Year: Sometimes true Ran Out of Food in the Last Year: Sometimes true Transportation Needs: No Transportation Needs (12/03/2023) Received from [facility] PRAPARE - Transportation Lack of Transportation (Medical): No Lack of Transportation (Non-Medical): No Recent Concern: Transportation Needs - Unmet Transportation Needs (11/26/2023) Received from [facility] PRAPARE - Transportation Lack of Transportation (Medical): Yes Lack of Transportation (Non-Medical): Yes Physical Activity: Inactive (12/03/2023) Received from [facility] Exercise Vital Sign Days of Exercise per Week: 0 days Minutes of Exercise per Session: 0 min Stress: Not on file Social Connections: Unknown (12/03/2023) Received from [facility] Social Connection and Isolation Panel [NHANES] Frequency of Communication with Friends and Family: Twice a week Frequency of Social Gatherings with Friends and Family: Not on file Attends Jewish Services: Not on file Active Member of Clubs or Organizations: Not on file Attends Club or Organization Meetings: Not on file Marital Status: Intimate Partner Violence: Not on file Housing Stability: High Risk (12/03/2023) Received from [facility] Housing Stability Vital Sign Unable to Pay [...] RES. This report was dictated by a Electronic Warfare Linguist/Fellow/NOHELIA: Roman Zendejas RES 08/10/2024 6:43 This report was dictated by a Electronic Warfare Linguist/Fellow/Physician Laborer [employer]. I have personally reviewed the images as well as the interpretation and agree with the findings. Report finalized by: Roberto Marina MD 08/10/2024 8:52 No MRI head results found for the past 14 days No EEG results found for the past 14 days I performed [id number] diagnostic evaluation of this patient.I have reviewed [...] can be done outpatient. Loida FloresVascular Neurology/Neurohospitalist, [facility] Computer Teacher, [facility] CAL OFFICE PROFESSIONAL INSTRUCTOR CAL OFFICE PROFESSIONAL INSTRUCTOR CAL OFFICE PROFESSIONAL INSTRUCTOR [facility]2025-01-22 15:10:22Pending Results Scheduled Orders Name Type Priority [...] on patient's age to complete this topic [facility] 15:10:22 Diagnosis Subdural hematoma (HCC) - Primary Subdural hemorrhage Breakthrough seizure (CMS/HC C) (HCC) Closed head injury, initial encounter Nonintractable epilepsy with out status epilepticus, unspecified epilepsy type (HCC) Acute cystitis with hematuri a Seizure (HCC) Other convulsions Subdural hemorrhage (HCC) Subdural hemorrhage [facility]Ioahyxf6644-08-93 15:10:22 [facility]Zhgtpgh3458-61-44 06:02:36 [facility] HospitalQpilmaw4717-73-32 06:02:36* Imaging (Routine) - Pending Review Specialty Diagnoses / Procedures Referred By Justina lynn Referred To Contact Radiology Procedures CT external head System, Provider Not In Referral ID Status Reason Start Date Expiration Date V isits Requested Visits Authorized [id number] Pending Review 08/10/2024 02/06/2025 1 1 CAL OFFICE PROFESSIONAL INSTRUCTOR [facility] HospitalVqhiwoa2093-21-59 06:02:36Upcoming Encounters Health Maintenance Due Date Last [...] on patient's age to complete this topic [facility] HospitalXdizkvt4685-59-60 00:54:53 Summary: Discharge Images from the original [...] daughter, in no apparent distress, Alma Gould [facility]fp[facility]2393-34-09 00:10:43 Report to Campbell CAMPOS. Ely Hernández [place] 242584-09-14 22:25:58 Pt having seizure like activity as I walked in pt. Activity lasting about 40 seconds. Pt alert and able to answer questions immediately after activity. Yesenia Hightower [place] 242584-09-14 20:44:51 Pt arrived via person WC with complaints of feeling like her heart failure was acting up and her pulse ox machine was reading 94% and Hr 61 at home which is low for her. Pt states she has had 6 seizures today. Was seen at [facility] and reports no [...] meds for a month d/t financial issues. 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 Mireille Cardenas [facility] HospitalIefqbi9902-91-44 21:59:00 Associated Order(s): EKG-12 Lead ONCE Pre-Procedure Diagnose(s): Chest pain, unspecified type Post-Procedure Diagnose(s): Chest pain, unspecified type [facility] Emergency Department Note Patient Name: Heather Turner Date of : 1970 53 year old female [facility] Primary Care Physician: Lb Lieberman Patient Escorted by: Family [5] Mode of Arrival: Personal means [1] EMS Treatment Prior to ED Arrival: [facility] treatment comments: prescription meds Travel and Exposure [...] (chronic obstructive pulmonary disease) Diverticulitis Epilepsy Hypertension PR (myocardial infarction) 07/20/2007 Slipped disc Stomach cancer [...] 08/14/2015 Surgeon: Luis Jones Jr., ESTHER; Location: [facility] OR [facility] TONSILLECTOMY Review of Systems: Review of Systems [...] 0.01 - 0.07 10*3/uL COMP. METABOLIC PANEL (44605) - Abnormal NA 140 135 - 145 [...] VW Cbc with Diff Comp. Metabolic Panel (31705) Troponin I Orders Placed This Encounter Medications [...] ED Physician in the absence of a sap abap developer: yes Previous ECG: Previous ECG: Unavailable Interpretation: [...] signed by: Radha Wyatt MD 01/12/24 [address] [place] 135604-06-25 16:22:00 TRANSITIONAL CARE MANAGEMENT ASSESSMENT 01/12/2024 Heather Turner [id number] Heather Turner is a 53 year old /White female was admitted on 01/09/24 to [facility] ICU. She was discharged on 01/10/24 with discharge disposition of HR- Routine Discharge. Admitting Physician: Darrick rFy Discharge Diagnosis: Hypotension No linked episodes TCM Sao-azru-sl-face outreach documentation: Care Transition CM made f/u call to pt post-discharge x2. No response and call went to voicemail. CM left a discreet message with purpose of call and CM's call back information. Discharge Assessment Chart Assessed: 01/12/24 TCM Outreach Completed: 01/12/24 Future Appointments: Veronique Carrillo [facility]NR[facility] InstituteIlraeg8819-13-44 11:40:32 Care Transition CM made f/u call to pt post-discharge. No response and call went to voicemail. CM left a discreet message with purpose of call and CM's call back information. Veronique Carrillo RN, BSN Planning Supervisor-Transitions of Care [phone] [place] 121314-06-23 15:32:40 Problem: Discharge Planning Goal: Adequate for discharge 01/10/2024 1532 by Addis Bates RN Outcome: Resolved 01/10/2024 1532 by Addis Bates, BETH Outcome: Adequate for discharge Goal: Effective communication [...] RN Outcome: Adequate for discharge Addis Bates [facility] HospitalSxhczo1815-46-32 15:32:28 Problem: Discharge Planning Goal: Adequate for [...] in pain sensation Outcome: Adequate for discharge [facility] InstituteAabovu9095-00-84 14:55:21 Problem: Discharge Planning Goal: Adequate for [...] sensation Outcome: Adequate for discharge Wayne Merrill RNUTMB - Grnjvk9496-16-54 01:16:51 Problem: Discharge Planning Goal: Adequate for [...] sensation Outcome: Progressing as expected Alexandria Walsh [facility] HospitalRsrphu4664-76-36 22:42:54 Patient admitted to IMU for diagnosis of pneumonia, elevated D-dimer, hypotension, chest pain. Patient agrees to admission, discussed plan of care with patient and family. Patient is awake, alert, oriented, resp reg unlabored, color appropriate for race, PIV intact x2. No adverse reaction to medications administered while in ED. Belongings with patient to unit. Report to BETH Reyez. [place] [id number] 22:35:43 Report given to BETH Reyez IMU T [place] [id number] 20:04:51 Patent resting T Sheri Harding RNBenjamin [place] 135604-06-22 16:09:08 Patient states: "I started having chest pain this morning" Reports history of PR, blood clots in heart, lung and legs, CHF. Malinda Andres RUST - [id number] 16:07:00 Associated Order(s): EKG-12 Lead ROUTINE ONCE Pre-Procedure Diagnose(s): Chest pain, unspecified type Post-Procedure Diagnose(s): Chest pain, unspecified type [facility] Emergency Department Note Patient Name: Heather Turner Date of : 1970 53 year old female Treatment Room: AK2/AK2 Primary Care Physician: Lb Lieberman Patient Escorted [...] Chief Complaint: Chief Complaint Patient presents with • Chest Pain History of Present Illness: Heather Turner is a 53 year old female who present to the ED with chest pain with SOB that started this morning. Hx of PR, PE and CHF. She rated her pain [...] vomiting or diarrhea. 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 used: No Past Medical History/Immunizations: Past Medical History: Diagnosis Date • Anxiety Extreme • Bipolar disorder • Breast pain 09/18/2015 • Cauda equina compression 11/21/2023 diagnosed 08/2023 • Congestive heart failure 2021 • COPD (chronic obstructive pulmonary disease) • Diverticulitis • Epilepsy • Hypertension • PR (myocardial infarction) 07/20/2007 • Slipped disc • Stomach cancer • Substance abuse Marijuana daily-for anxiety Allergies: Allergies Allergen Reactions • Green Tea Other - See comments Seizures • Diclofenac Hypertension • Keppra [Levetiracetam] Other - See comments Makes [...] History: Past Surgical History: Procedure Laterality Date • ANTERIOR CERVICAL FUSION • CHOLECYSTECTOMY • HAND/FINGER SURGERY UNLISTED Bilateral 3 L hand, 3 R hand • METATARSAL OSTEOTOMY Right 08/14/2015 Surgeon: Luis Jones Jr., DPM; Location: [facility] Location • TONSILLECTOMY Review of Systems: Review of Systems [...] and Treatments: Orders Placed This Encounter Procedures • XR CHEST 1 VW • CBC WITH DIFF • TROPONIN I • N-TERMINAL PRO-BNP • COMP. METABOLIC PANEL (16052) • D-DIMER Orders Placed This Encounter Medications • aspirin tablet 325 mg • morpHINE (4 mg/mL) injection 4 mg • ondansetron (ZOFRAN (PF)) injection 4 mg First Provider Eval: ED Events Date/Time Event User Comments 01/09/24 1609 Medical Screening Begins OLENA DOYLE NP -- 01/09/241608 First Provider Evaluation OLENA DOYLE NP -- ED COURSE Labs, chest x-ray, ECG, Aspirin, Zofran, Fentanyl, CT chest ED Course as of 01/09/242115 Sat Jan 09, 20242003 Patient hand off to Lorelei HURST [JA] 1813 Impression: No consolidation or pleural effusion. No pneumothorax. [JA] 1730 D DIMER(!): 0.87 [JA] ED Course User Index [JA] Olena Doyle NP Diagnosis/Impression as of 01/09/24 2116 Chest pain, unspecified type Shortness of breath Elevated d-dimer Pneumonia due to infectious organism, unspecified laterality, unspecified part of lung Hypotension, unspecified hypotension type Procedures: EKG-12 Lead ROUTINE ONCE Date/Time: 01/09/2024 4:13 PM Performed by: Olena Doyle NP Authorized by: Olena Doyle NP ECG interpreted by ED Physician in the absence of a sap abap developer: yes Previous ECG: Previous ECG: Compared to [...] SOB that started this morning. Hx of PR, PE and CHF. She rated her pain [...] SOB that started this morning. Hx of PR, PE and CHF. She rated her pain [...] and patient evaluation by RUBY Berman MD, [facility] Emergency Medicine [facility] InstituteCfqkmj3795-10-02 10:18:53 Care Transitions Nurse CM made f/u call to patient post-discharge. No answer, call went to voicemail. CM left discreet message with CM's call back information. CM will try again at a later time. SUZY LindseyN, RN, CCRN Planning Supervisor, Transitions of Care [email or web address] Jodi Berg [facility] HospitalUcvzxt2188-18-10 10:45:32 Problem: Respiratory Function - Impaired Goal: [...] communication Outcome: Adequate for discharge Delaney Laird [facility] HospitalMdmwhg6047-70-42 05:41:00 Problem: Respiratory Function - Impaired Goal: [...] Goal: Effective communication Outcome: Progressing as expected [place] 218394-05-27 18:20:42 Patient admitted to [facility] ADC 2215 for diagnosis of shortness of breath. Patient agrees to admission, discussed plan of care with patient and family. Patient is awake, A&Ox4, RR even and unlabored on RA. Color appropriate for race. PIV intact x1. No adverse reaction to medications administered while in ED. Belongings with patient to unit. [place] 218394-05-27 18:19:06 Nurse Report Report given to BETH Romero. Chief complaint, assessment findings, infusion verify and orders reviewed. Plan of care discussed with patient and both nurses. Patient/family members verbalized understanding. Lisette Murphy RN [place] 218394-05-27 14:54:55 Report given to Amy Murphy RN. Updated on patient's medical condition, history of present condition and plan of care. Leo Hyde [facility] HospitalNxzbpz9075-72-02 13:30:46 Patient arrived in wheelchair with c/o shortness of breath starting this morning. Patient attempted to try her albuterol at home with no success. Patient attempt to feel better with husbands oxygen. Started to complaining of reproducible chest pain approximately 2 hours ago. Hx: CHF Lisette Murphy [facility] HospitalYgnbji6308-21-54 13:24:00 AdmissionCare Guideline: Chest Pain - OBS, [...] care. AdmissionCare documentation entered by: Mj Bryan [facility], 27th edition, Copyright ? 2022 [facility] [facility] All Rights Reserved. [id number]:48:23-05:00 [facility] InstituteBpnfrs3957-69-15 18:26:32 Pt requesting to leave AMA, patient educated on risks, and benefits of leaving AMA. Patient continues to request to leave AMA. CCU notified of patients request. Patient educated on risk and benefits. AMA paperwork signed by patient. Duong Tello [facility] HospitalEskrbu8985-33-81 14:42:13 Problem: Respiratory Function - Impaired Goal: Adequate oxygenation Outcome: Progressing as expected Goal: Adequate work of breathing Outcome: Progressing as expected Problem: Falls, Risk of Goal: Absence of falls Outcome: Progressing as expected [place] 68053-05-15 17:16:35 Report to Rad with [facility], care transferred Sheri Tompkins RNBen[place] 135604-05-15 16:47:06 Nurse Report Report given to Duong CAMPOS at [facility], Chief complaint, assessment findings, infusion verify and orders reviewed. Sheri Tompkins RN [place] 68053-05-15 16:40:00 Pt tolerating bipap, updated on status, skinw/d T [place] 68053-05-15 16:09:00 Placed on bedpan [place] 68053-05-15 16:08:24 Report to Turner CAMPOS. 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 Selina Llanes [facility] - [id number] 12:56:00 Associated Order(s): EKG-12 Lead ROUTINE ONCE Pre-Procedure Diagnose(s): Other chest pain Post-Procedure Diagnose(s): Other chest pain [facility] Emergency Department Note Patient Name: Heather Turner Date of : 1970 53 year old female Treatment Room: AK1/AK1 Primary Care Physician: PATIENT DOES NOT HAVE A PCP Patient Escorted by: Family [5] Mode of Arrival: Personal means [1] EMS Treatment Prior to ED Arrival: [employer] [employer] treatment: Medication (comment) [employer] treatment comments: tylenol PM X2 at 0830, [...] began today. PT was recently admitted to [facility] ICU for PE, chf and cardiogenic shock [...] (chronic obstructive pulmonary disease) Diverticulitis Epilepsy Hypertension PR (myocardial infarction) 07/20/2007 Slipped disc Stomach cancer [...] 08/14/2015 Surgeon: Luis Jones Jr., ESTHER; Location: [facility] OR Location TONSILLECTOMY Review of Systems: [...] 0.01 - 0.07 10*3/uL COMP. METABOLIC PANEL (68602) - Abnormal NA 138 135 - 145 [...] VW Cbc with Diff Comp. Metabolic Panel (13943) Troponin I N-Terminal Pro-Bnp BLOOD CULTURE SCREEN [...] interpretation with external provider(s): Dr. Suero of [facility] cardiology accepting to CCU. Risk Prescription drug [...] signed by: Connor Renee MD 12/02/23 1632 [facility] - [id number] 10:36:39 TRANSITIONAL CARE MANAGEMENT ASSESSMENT 12/01/2023 Heather Turner [id number] Heather Turner is a 53 year old /White female was admitted on 11/21/[address] She was discharged on 11/28/23 with discharge disposition of HR- Routine Discharge. Admitting Physician: Cr Fry Discharge Diagnosis: Decompensated acute on chronic HFrEF 15-20% EF Cardiogenic shock NSTEMI 2/2 stress induced cardiomyopathy 2/2 PE and drug use No linked episodes TCM Nrx-kdsi-fl-face outreach documentation: Discharge Assessment Chart Assessed: 12/01/23 TCM Outreach Completed: 12/01/23 Do you have a few minutes to speak with me about how you are doing at home?: Yes (Negrotent stated she feel ok) Discharge Instructions Do you understand your at-home instructions?: Yes Medications Have you filled your prescriptions and do you have them in your home? : No Medication Interventions?: (Patient stated she cannot afford the cost of $44. 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 to district manager in training .) Do you know how to take your medications?: Yes Supplies Did you receive applicable home medical supplies/equipment?: N/A Follow Up Appointment Has a follow up appointment been scheduled?: No May I assist with scheduling this appointment?: Patient has outside PCP (Patient stated she was told that her providers at at [facility] and will not be following [facility]) Do you have any questions about [...] stated she has to follow up with [facility] clinics Do you understand your discharge [...] activity): as tolerated 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 No unable to [...] N/A Ensure they have contact info for [employer]: na Have you received your DME? N/A [...] go to the emergency room Madeline Mckinley RUST - [id number] 10:41:04 TRANSITIONAL CARE MANAGEMENT ASSESSMENT 11/30/2023 Heather Turner [id number] Heather Turner is a 53 year old /White female was admitted on 11/21/[address] She was discharged on 11/28/23 with discharge disposition of HR- Routine Discharge. Admitting Physician: Cr Fry Discharge Diagnosis: Decompensated acute on chronic HFrEF 15-20% EF Cardiogenic shock NSTEMI 2/2 stress induced cardiomyopathy 2/2 PE and drug use No linked episodes TCM Fhr-pdnn-dk-face outreach documentation: Transition CM attempted to contact patient for post discharge follow up. CM left a message with male friend contact as he stated patient was asleep and not available. Future Appointments: eah Mckinley RUST - [id number] 15:39:19 Problem: Bleeding, Risk of Goal: Absence [...] breakdown Outcome: Adequate for discharge Aliyah Francisco RNUT - [id number] 14:00:02 Problem: Discharge Planning Goal: Adequate for discharge 11/27/2023 135 by Merlyn Ndiaye RN Outcome: Progressing as expected 11/27/2023950 by Merlyn Ndiaye RN Outcome: Progressing as expected Problem: Bleeding, Risk of Goal: Absence of impaired coagulation signs and symptoms 11/27/2023 135 by eMrlyn Ndiaye RN Outcome: Progressing as expected 11/27/2023950 [...] RN Outcome: Progressing as expected Merlyn Ndiaye [facility] HospitalSkdjmw1392-50-51 09:51:54 Problem: Bleeding, Risk of Goal: Absence [...] new skin breakdown Outcome: Progressing as expected [facility] InstituteLxsxpj7472-74-97 05:16:42 Problem: Bleeding, Risk of Goal: Absence [...] breakdown Outcome: Progressing as expected Mariely Wallace [facility] HospitalLkmwiu4154-22-15 17:12:17 Problem: Bleeding, Risk of Goal: Absence [...] skin breakdown Outcome: Progressing as expected T [facility] InstituteSwnzmh8489-94-19 05:27:41 Problem: Bleeding, Risk of Goal: Absence [...] skin breakdown Outcome: Progressing as expected T Luda Vee RUST - [id number] 18:52:11 Summary: [facility] Note Spoke with Rich Spencer from [facility] at 18:12. Case #[id number]. Brice Jackson [facility] HospitalGadopx8527-91-79 10:16:03 Problem: Bleeding, Risk of Goal: Absence [...] new skin breakdown Outcome: Progressing as expected [facility] InstituteKqzqfw7098-84-20 10:41:53 Problem: Bleeding, Risk of Goal: Absence [...] Brice Jackson RN Outcome: Progressing as expected [facility]2024-05-06 10:40:04 Problem: Bleeding, Risk of Goal: Absence [...] new skin breakdown Outcome: Progressing as expected [facility]2024-05-05 05:54:04 Problem: Bleeding, Risk of Goal: Absence [...] breakdown Outcome: Progressing as expected Hamlet Osullivan [facility] HospitalZisjxe4593-89-17 23:58:07 Patient transferred to [place] for diagnosis of chest pain, NSTEMI, COPD exacerbation Patient agrees to transfer/admit plan and verbalized understanding of plan of care, family aware of plan Patient awake alert, oriented, resp reg unlabored, skin w/d PIV patent, no s/s infiltration noted, heparin infusing No adverse reaction to medications given while in ED. Report given to [facility] EMS personnel Nery Orellana [place] 242584-05-04 23:55:09 Nurse Report Report given to BETH Zuleta in [place]. Chief complaint, assessment findings, infusion verify and orders reviewed. Plan of care discussed with nurse. Nery Orellana RN [facility] InstituteKwnjht9047-92-91 23:18:14 Associated Order(s): Critical Care Critical Care [...] separately billable procedures and treating other patients. [facility] InstituteJelgqe8371-13-55 23:11:13 Pt c/o difficulty breathing at this time. Pt placed on 2L O2 NC for comfort. 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 treatment: None ED Events Date/Time Event User Comments 11/21/232112 Medical Screening Begins MEGAN RONDON MD -- 11/21/232112 First Provider Evaluation MEGAN RONDON MD -- Chief Complaint Chief Complaint Patient presents with • Shortness of Breath • Chest Pain ED Triage Notes Alma Gould [...] / Immunizations Past Medical History: Diagnosis Date • Anxiety Extreme • Bipolar disorder • Breast pain 09/18/2015 • Congestive heart failure 2021 • COPD (chronic obstructive pulmonary disease) • Diverticulitis • Epilepsy • Hypertension • PR (myocardial infarction) 07/20/2007 • Slipped disc • Stomach cancer • Substance abuse Marijuana daily-for anxiety Tetanus received in last 5 years: Unknown Childhood immunizations: Up-to-date Past Surgical History Past Surgical History: Procedure Laterality Date • ANTERIOR CERVICAL FUSION • CHOLECYSTECTOMY • HAND/FINGER SURGERY UNLISTED Bilateral 3 L hand, 3 R hand • METATARSAL OSTEOTOMY Right 08/14/2015 Surgeon: Luis Jones Jr., DPM; Location: [facility] OR Location • TONSILLECTOMY Allergies Allergies Allergen Reactions • Green Tea Other - See comments Seizures • Diclofenac Hypertension • Keppra [Levetiracetam] Other - See comments Makes [...] PLT ESTIMATE Normal Normal COMP. METABOLIC PANEL (03470) - Abnormal NA 134 (*) 135 - [...] and Treatments Orders Placed This Encounter Procedures • Critical Care • XR CHEST 1 VW • CBC WITH DIFF • COMP. METABOLIC PANEL (58131) • AMYLASE • TROPONIN I • N-TERMINAL PRO-BNP • URINALYSIS • URINE DRUG (IMMUNOASSAY) - COMPREHENSIVE DRUG SCREEN W/O REFLEX • Free T4 • Thyroid Stimulating Hormone • RAPID INFLUENZA A/B • COVID-19 (ID NOW TESTING) • Lipase • Lab Only COVID Interpretation • Prothrombin Time / INR • aPTT • aPTT (for use with Heparin Infusion) Orders Placed This Encounter Medications • ipratropium-albuteroL (DUONEB) 0.5 mg-3 mg(2.5 mg base)/3 mL nebulizer solution 3 mL • ipratropium-albuteroL (DUONEB) 0.5 mg-3 mg(2.5 mg base)/3 mL nebulizer solution 3 mL • NaCl 0.9% (NS) bolus infusion 500 mL • methylprednisolone sod succ (SOLU-MEDROL) injection 125 mg • acetaminophen (TYLENOL) tablet 975 mg • ondansetron (ZOFRAN (PF)) injection 4 mg • morpHINE (4 mg/mL) injection 4 mg • HEPARIN SODIUM (PORCINE) 1,000 UNIT/ML BOLUS ACS ORDER SET • heparin (1,000 unit/mL, 10 mL vial) for Rebolusing • heparin 25,000 Units/250 mL (Premixed Bag) in [...] Megan Rondon MD Diagnosis/Impression as of 11/21/23 232 Chest pain, unspecified type Tachycardia Acute cough [...] exacerbation. She will be transferred down to [place] to the [place] team in the cardiology [...] on file Megan Rondon Jr., MD Clinical Computer Teacher [facility] Emergency Department Digital [employer] Dictation Software is used frequently and may produce errors. Promptly contact for obvious discrepancies. Megan Rondon MD 11/21/232321 [facility]2024-02-23 11:34:02 Chief Complaint Patient presents with Follow-up Hospitalization Krissy Cannon LVN [facility]2024-01-24 16:08:34 Bryan spoke to patient and patient decided to leave AMA. AMA form signed by patient and attached to paperwork. Patient in stable condition with AMA. IV line removed and patient was assisted onto wheelchair and moved to the lobby. Patient called her prior to leaving room and will be picking up patient. ME Dumont [facility] HospitalQnivsb2900-73-32 15:56:21 Patient requesting to talk to provider - provider aware. Patient refused tylenol as she said medication does not improve her condition and she does not want to throw it up. Patient also refusing blood draw at this time. [place] 655274-01-24 14:50:00 Patient's name and verified with patient. [...] (chronic obstructive pulmonary disease) Diverticulitis Epilepsy Hypertension PR (myocardial infarction) 07/20/2007 Slipped disc Stomach cancer Substance abuse Marijuana daily-for anxiety Allergies noted in chart. Vitals obtained. Assessment performed. IV in place and patent. Placed on continuous spo2/cardiac monitoring, HR 106 Bed low and locked, secured with two rails, call light within reach. Belongings at bedside. Patient aware of plan of care. Steph Dumont RN [place] 655274-01-24 14:17:22 Patient had witnessed seizure like activity. DO Flor at bedside. Patient stopped seizure activity and had no postictal phase. Patient coherent, alert and oriented/answering all questions appropriately. CAL OFFICE PROFESSIONAL INSTRUCTOR [facility] InstituteSosbeh0014-67-24 13:45:33 Patient here for chest pain that started approximately 1 hour ago. Patient had seizure like activity in the vehicle while attempting to get patient out of the car, patient had no post ictal phase. Patient c/o substernal chest pain and jaw pain. 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 METABOLIC PANEL (85063) - Abnormal NA 140 135 - 145 [...] Procedures Cbc with Diff Comp. Metabolic Panel (27219) Urinalysis Lactic Acid Whole Blood Troponin I [...] as of 08/12/23 1605 ThuAug 12, 2023 160 Lactic normal. Patient requesting to leave prior [...] for follow-up Yehuda Arcos MD Specialty: PN-NEUROLOGY [facility] [address] [place] [id number] ADC-Emergency Department Specialty: Emergency Medicine [address] [place] [id number] Instructions: If symptoms worsen as documented in the discharge Electronically signed by: Mj Bryan DO 08/12/23 1605 Mj Bryan DO 08/12/23 1605 [facility]
[2024-10-26 09:23] LABS: Absolute Eosinophils 0.2 K/uL (0-0.5); Absolute Neutrophil 9.3 K/uL (1.8-8.0); Nucleated Red Blood Cells % 0.1 % (0-0)
[2024-10-26 09:29] LABS: Absolute Basophils 0.1 K/uL (0-0.5); Absolute Lymphocytes (CBC) 1.5 K/uL (0.7-4.9); Absolute Monocytes 1.4 K/uL (0.1-1.3); Basophils % 1.1 % (0-1.3); Eosinophils % 1.4 % (0-4.4); Hematocrit 40.8 % (36.0-45.0); Hemoglobin 13.8 g/dL (12.0-15.0); Lymphocytes % 11.8 % (15.3-44.8); MCH 28.3 pg (27.0-35.0); MCHC 33.8 g/dL (32.0-36.0); MCV 83.7 fL (80-100); MPV 6.7 fL (7.6-11.3); Monocytes % 11.4 % (3.3-12.3); Neutrophils % 74.3 % (41.7-73.7); Platelets 442 thou/uL (152-406); RBC Red Blood Cell Count 4.88 M/uL (3.86-4.86); Red Cell Distribution Width 18.1 % (12.1-15.2)
--- NOTE | 2024-10-26 10:59 | ER ---
Nurse's Notes [facility] Name: Heather Coon Age: 54 yrs Sex: Female : 1970 Arrival Date: 10/26/2024 Time: 08:18 Bed 13 Private MD: Diagnosis: Conversion disorder with seizures or convulsions Presentation: 10/26 08:35 Chief complaint: EMS states: Pt picked up at [facility], had 3 seizures witnessed by PD, ph 1 witnessed by EMS on scene, no post-ictal period, hx of seizures, pt states that she has not taken her seizure medication in approx 3 days. Coronavirus screen: Vaccine status: Patient reports being unvaccinated. Ebola Screen: No symptoms or risks identified at this time. Initial Sepsis Screen: Does the patient meet any 2 criteria? No. Patient's initial sepsis screen is negative. Does the patient have a suspected source of infection? No. Patient's initial sepsis screen is negative. Risk Assessment: Do you want to hurt yourself or someone else? Patient reports no desire to harm self or others. Onset of symptoms was October 26, 2024. 08:35 Method Of Arrival: EMS: [facility] ph 08:35 Acuity: ANDER 3 ph Triage Assessment: 08:39 General: Appears in no apparent distress. comfortable, Behavior is cooperative, ph appropriate for age. Pain: Complains of pain in back. Neuro: Level of Consciousness is awake, alert, obeys commands, Oriented to person, place, time, situation, Seizure activity reported prior to arrival. pt is not post-ictal. Historical: - Allergies: 08:38 fluoxetine; ph 08:38 Green Tea; ph 08:38 Keppra; not an allergy; ph - PMHx: 08:38 Anxiety; Arthritis; Bipolar disorder; Cancer-Cervical; Chronic obstructive lung ph disease; Chronic pain; Congestive heart failure; Depression; Diverticulitis; Herniated Back Disc; Hypertension; intestinal mass; Myocardial infarction; pt reports hx of seizures; stroke; Spastic Muscles; - PSHx: 08:38 back surgery; cervical fusion; Cholecystectomy; foot; Tonsillectomy; ph - Immunization history:: Adult Immunizations unknown. - Infectious Disease History:: Denies. - Social history:: Smoking status: unknown. Screenin:40 [facility] ED Fall Risk Assessment (Adult) History of falling in the last 3 months, ph including since admission Yes- physiologic fall (2 pts) Confusion or Disorientation No (0 pts) Intoxicated or Sedated No (0 pts) Impaired Gait No (0 pts) Mobility Assist Device Used No (0 pt) Altered Elimination No (0 pt) Score/Fall Risk Level 0 - 2 = Low Risk Oriented to surroundings, Maintained a safe environment, Hourly rounding (assess needs \T\ fall precautionary measures) done, Used ambulatory aids as needed (educated on \T\ assisted with). Abuse screen: Denies threats or abuse. Denies injuries from another. Nutritional screening: No deficits noted. Tuberculosis screening: No symptoms or risk factors identified. Assessment: 10:51 General: SEE TRIAGE ASSESSMENT. ph Vital Signs: 08:35 BP 108 / 85; Pulse 115; Resp 18; Temp 97.3; Pulse Ox 99% on R/A; Weight 78.02 kg; ph Height 5 ft. 3 in. ; 09:30 BP 109 / 78; Pulse 94; Resp 18; Pulse Ox 98% on R/A; ph 10:51 BP 118 / 81; Pulse 100; Resp 18; Pulse Ox 98% on R/A; ph 08:35 Body Mass Index 30.47 (78.02 kg, 160.02 cm) ph ED Course: 08:28 Patient arrived in ED. bd 08:29 Britta Carrera MD is Attending Physician. gb1 08:35 Evonne Lord, RN is Primary Nurse. ph 08:38 Triage completed. ph 08:39 Arm band placed on Patient placed in an exam room, on a stretcher, on pulse oximetry. ph 08:40 Patient has correct armband on for positive identification. Bed in low position. Call ph light in reach. Side rails up X 1. Pulse ox on. NIBP on. Door closed. Noise minimized. Warm blanket given. 08:59 Missed attempt(s): 22 gauge in right wrist. Bleeding controlled, band aid applied, cc6 catheter tip intact. 09:19 CMP Sent. ph 09:19 CBC with Diff Sent. ph 10:02 Missed attempt(s): 22 gauge in left forearm. Bleeding controlled, band aid applied, ph catheter tip intact. 11:27 No provider procedures requiring assistance completed. Patient did not have IV access ph during this emergency room visit. Administered Medications: No medications were administered Medication: 08:40 VIS not applicable for this client. ph Outcome: 10:58 Discharge ordered by gb1 11:27 Discharged to home ambulatory, ph 11:27 Condition: good 11:27 Discharge instructions given to patient, Instructed on discharge instructions, follow up and referral plans. Demonstrated understanding of instructions, follow-up care, 11:28 Patient left the ED. ph Signatures: Catherine Dewey Patricia, RN RN ph Deandre, MD CARO Callejas gb1 Jaimee Parsons cc6
--- NOTE | 2024-10-26 10:59 | EDPHYS ---
Physician Documentation [facility] Name: Heather Coon Age: 54 yrs Sex: Female : 1970 Arrival Date: 10/26/2024 Time: 08:18 Bed 13 Private MD: ED Physician Britta Carrera HPI: 10/26 10:55 This 54 yrs old Female presents to ER via EMS with complaints of Seizure. gb1 10:55 54-year-old female from snf has history of bipolar, anxiety, COPD and arthritis is gb1 here with a presumed and witnessed full body seizure. Patient has been noncompliant with her seizure medication. She does not have a neurologist. She was booked [facility] for a warrant for arrest prior to arrival. Patient denies any headache or Fall with a head strike.. Historical: - Allergies: 08:38 fluoxetine; ph 08:38 Green Tea; ph 08:38 Keppra; not an allergy; ph - PMHx: 08:38 Anxiety; Arthritis; Bipolar disorder; Cancer-Cervical; Chronic obstructive lung ph disease; Chronic pain; Congestive heart failure; Depression; Diverticulitis; Herniated Back Disc; Hypertension; intestinal mass; Myocardial infarction; pt reports hx of seizures; stroke; Spastic Muscles; - PSHx: 08:38 back surgery; cervical fusion; Cholecystectomy; foot; Tonsillectomy; ph - Immunization history:: Adult Immunizations unknown. - Infectious Disease History:: Denies. - Social history:: Smoking status: unknown. Exam: 10:55 Constitutional: This is a well developed, well nourished patient who is awake, alert, gb1 and in no acute distress. Head/Face: Normocephalic, atraumatic. Eyes: Pupils equal round and reactive to light, extra-ocular motions intact. Lids and lashes normal. Conjunctiva and sclera are non-icteric and not injected. Cornea within normal limits. Periorbital areas with no swelling, redness, or edema. ENT: Nares patent. No nasal discharge, no septal abnormalities noted. Tympanic membranes are normal and external auditory canals are clear. Oropharynx with no redness, swelling, or masses, exudates, or evidence of obstruction, uvula midline. Mucous membranes moist. Neck: Trachea midline, no thyromegaly or masses palpated, and no cervical lymphadenopathy. Supple, full range of motion without nuchal rigidity, or vertebral point tenderness. No Meningismus. Chest/axilla: Normal chest wall appearance and motion. Nontender with no deformity. No lesions are appreciated. Cardiovascular: Regular rate and rhythm with a normal S1 and S2. No gallops, murmurs, or rubs. Normal PMI, no JVD. No pulse deficits. Respiratory: Lungs have equal breath sounds bilaterally, clear to auscultation and percussion. No rales, rhonchi or wheezes noted. No increased work of breathing, no retractions or nasal flaring. Abdomen/GI: Soft, non-tender, with normal bowel sounds. No distension or tympany. No guarding or rebound. No evidence of tenderness throughout. Back: No spinal tenderness. No costovertebral tenderness. Full range of motion. Skin: Warm, dry with normal turgor. Normal color with no rashes, no lesions, and no evidence of cellulitis. MS/ Extremity: Pulses equal, no cyanosis. Neurovascular intact. Full, normal range of motion. Neuro: Awake and alert, GCS 15, oriented to person, place, time, and situation. Cranial nerves II-XII grossly intact. Motor strength 5/5 in all extremities. Sensory grossly intact. Cerebellar exam normal. Normal gait. Psych: Awake, alert, with orientation to person, place and time. Behavior, mood, and affect are within normal limits. Vital Signs: 08:35 BP 108 / 85; Pulse 115; Resp 18; Temp 97.3; Pulse Ox 99% on R/A; Weight 78.02 kg; ph Height 5 ft. 3 in. ; 09:30 BP 109 / 78; Pulse 94; Resp 18; Pulse Ox 98% on R/A; ph 10:51 BP 118 / 81; Pulse 100; Resp 18; Pulse Ox 98% on R/A; ph 08:35 Body Mass Index 30.47 (78.02 kg, 160.02 cm) ph MDM: 08:29 Medical Screening Exam initiated gb1 10:55 Data reviewed: vital signs, nurses notes. ED course: 54-year-old female with gb1 a questionable diagnosable seizure disorder. She has not seized here and there is no report of status. She did come from snf and at this time is neurologically intact. She has a nonfocal neurological exam and did not fall or have any head strike. Patient is comfortable in the room watching TV and requesting a lunch tray. Patient at this time will be discharged home and placed back on her medication prior. She is compliant with this plan of discharge and has been given return precautions which is compliant with prior discharge home today.. 10/26 08:35 Order name: CBC with Diff; Complete Time: 10:48 gb1 10/26 08:35 Order name: CMP gb1 10/26 08:35 Order name: Labs collected and sent; Complete Time: 09:19 gb1 10/26 09:38 Order name: Labs - recollect needed: recollect green top; Complete Time: 10:12 bd Administered Medications: No medications were administered Disposition Summary: 10/26/24 10:58 Discharge Ordered Notes: Location: Home gb1 Problem: an acute exacerbation gb1 Symptoms: have improved gb1 Condition: Stable gb1 Diagnosis - Conversion disorder with seizures or convulsions gb1 Followup: gb1 - With: Private Physician - When: - Reason: Re-evaluation by your physician Followup: gb1 - With: Emergency Department - When: - Reason: If symptoms return Discharge Instructions: - Discharge Summary Sheet gb1 - Conversion Disorder gb1 Forms: - Medication Reconciliation Form gb1 - Antibiotic Education gb1 - Prescription Opioid Use gb1 - Patient Portal Instructions gb1 - Leadership Thank You Letter gb1 Signatures: Dispatcher [employer] Catherine Eric Patricia, RN RN ph Deandre, MD CARO Callejas gb1
[2024-10-26 11:04] LABS: Anion Gap 12.7 mEq/L (5.0-15.0); Bilirubin Total 0.4 mg/dL (0.2-1.0); Globulin 4.1 g/dL (2.3-3.5); Potassium 3.7 mEq/L (3.5-5.1); Protein, Total 8.1 g/dL (6.4-8.2)
[2024-10-26 12:01] VITALS: TEMP 97.3
[2024-10-26 12:02] VITALS: BP 118/81; O2SAT 98
== END 2024-10-26 11:28 | disposition home or self-care (01) ==
LOC: ER 08:18
DX: F44.5 Conversion disorder with seizures or convulsions (principal); I11.0 Hypertensive heart disease with heart failure; I50.9 Heart failure, unspecified; I25.2 Old myocardial infarction; Z86.73 Personal history of transient ischemic attack (TIA), and cerebral infarction without residual deficits; Z88.8 Allergy status to other drugs, medicaments and biological substances
CPT/HCPCS: 36415; 80053; 85025; 99284

== ENCOUNTER 2025-04-10 13:25 | Emergency (ER) | payer OTHER ==
--- OUTSIDE RECORDS SUMMARY | 2025-04-10 14:15 | XMS REPORT | Continuity of Care Document ---
Author Name Unknown Address [address] [facility] [address] [place] [address] [facility] Address [address] [facility] [address] [place] [address] Support Name Relationship Address Phone MD RAEGAN FERREIRA Emergency Provider [address] [place] [address] RAZA JOHNSON spouse [address] [place] [address] RAZA JOHNSON spouse [address] [place] [address] MONY JOHNSON Spouse Unknown [phone] [address] SP [address] [address] JOSE MÉNDEZ MO [address] [address] Radhika Rosa Significant other Unknown [phone] Karrie Turner Daughter Unknown [phone] Mony Delvalle Spouse Unknown [place] [address] Mony Nguyen Jr. Father [address] [place] [address] Beny Turner Spouse [address] [place] [address] DO JUANY GREEN Emergency Provider [facility], [place] [address] NO PHYSICIAN, . Primary Care Physician Unknown Un available JACQUI JOHNSONBubba Emergency Contact [address] [place] [address] RAZA JOHNSON Emergency Contact [address] [place] [address] HEYDI CAMACHO MO [address] [place] [address] 1 MONY Unknown Unavailable Unavailable Personal Relationship Unknown Unavai lable 2 Personal Relationship Unknown Unavai lable ALICE JOHNSON X Unknown MUKESH ERNST Significant Unknown Care Team Providers Care Baker Chef Name Role Phone NO PHYSICIAN, . Primary Care Physician Unavailab PANKAJ Cook Attending Clinician Un available AYDEE GO Attending Clinician Unavailable MARIANELA COLLAZO Attending Clinician Unavailab ADAM Cabrera Attending Clinician Unavailable THOMAS LOZOYA Attending Clinician Nina MARIAH Quiroga Attending Clinician Unavailable DEMETRIUS TOBAR Attending Clinician Unavailab GARRICK Brito Attending Clinician Unavailable ROVERTO MCCALL Attending Clinician Unavailabl MERCEDES Clarke Attending Clinician Unavailable Rosalba Ayoub Attending Clinician + [phone] RAEGAN FERREIRA Attending Clinician UnavailSAPNA Dyson Attending Clinician Unavailab SAPNA Medellin Attending Clinician Unavailab PEDRO Corona Attending Clinician Unavailable LAB90 Attending Clinician Unavailable SARAI JULES Attending Clinician Unavaila Edward Perez Attending Clinician Unavailable LUIS RICHMOND Attending Clinician Unavailable Linnea Mercado Attending Clinician [phone] Jodi Berg RN Attending Clinician Unavail able ETHAN MUÑOZ Attending Clinician UnavailETHAN Vasquez Attending Clinician UnavailUzma Prater Attending Clinician Unavailable MEGAN RONDON Attending Clinician Unavailable MEGAN RONDON Attending Clinician Unavailable ZENIA SOLER Attending Clinician Unavailable LEONIDES LARIOS Attending Clinician Unavailable ROCÍO WEBB Attending Clinician Unavaila LAST Haas Attending Clinician Unavailable Promise Alfaro MD Attending Clinician Jocy ELIZONDO, Last Attending Clinician [phone] Gus Marie MD Attending Clinician + [phone], CAMPAIGNS Attending Clinician UnavailSegundo Ortega Attending Clinician Unavailable Gus Santamaria Attending Clinician Unavailable Kike ELIZONDO, Ho Morales Attending Clinician + HO STOKES Attending Clinician UnaGURWINDER Wang Attending Clinician Unavail able Doctor Unassigned, Jud Attending Clinician U chelsi Paige MD, Brooklynn Reyez Attending Clinician +[phone] Sabra ELIZONDO, Wendi Attending Clinician [phone] WENDI DICK Attending Clinician Unavailable System, Provider Not In Attending Clinician UnaCHRISSY Marie Attending Clinician Unavailable CHRISSY MOHR Attending Clinician Unavailable Chrissy Mohr DO Attending Clinician +[phone] MD GERRY Attending Clinician Unavailab le Doctor Unassigned, Jud Attending Clinician U MORALES Matamoros Attending Clinician Unavailab RADHA Vargas Attending Clinician Unavailable RADHA WYATT Attending Clinician Unavailable Veronique Carrillo RN Attending Clinician +[phone] DARRICK FRY Attending Clinician Unavailabl itz Doyle NP, Olena Attending Clinician [phone] Jenny MITTAL, Alfonso Moseley Attending Clinician +[phone] Darrick Fry MD Attending Clinician +[phone] Jodi Berg RN Attending Clinician Unavail able TAL BENAVIEDZ Attending Clinician Unavailable Mj Bryan DO Attending Clinician [phone] Tal Benavidez MD Attending Clinician +[phone] MOJGAN SUERO Attending Clinician Unav arianna Renee MD, Connor Suarez Attending Clinician + [phone] Mojgan Suero MD Attending Clinician + Chari Mckinley RN Attending Clinician Unavailab MADELINE Edwards Attending Clinician Unavailable IGNACIO AMANTHONY Attending Clinician Unavailable Lisandra ELIZONDO, Cr Attending Clinician +[phone] Lorenzo Ventura MD, Ivis Attending Clinician +[phone] Nola ELIZONDO, Ryder Joshi Attending Clinici an AARON LEDESMA Attending Clinician Unavailable Tracy ELIZONDO, Cris Attending Clinician +[phone] EFRA BABCOCK Attending Clinician Un available MYLA LIEBERMAN Attending Clinician Unavailable JUANY GREEN Attending Clinician Unavailable SIDDHARTH STANFORD Attending Clinician UnavailMARGOT Dexter Attending Clinician Unavailable YONATAN LORENZO Attending Clinician Unamario Loyola MD, [place] Olivia Attending Clinician Unavailab monroe Obregon MD, Pankaj Attending Clinician +[phone] Edward Fry DO Attending Clinician [phone] Bud ELIZONDO, Edward Attending Clinician [phone] EDWARD FARRELL Attending Clinician Unavailable QUIN MONET Attending Clinician Unavail able Kael SLATE ROOFER, Quin R Attending Clinician [phone] MJ BRYAN Attending Clinician Unavailable Provider, Not In System Attending Clinician Unav arianna Collazo MD, Marianela Hamilton Attending Clinician +[phone] Aydee Go MD Attending Clinician [phone] Dallas Gomez Attending Clinician +[phone] Adam Garcia MD Attending Clinician +[phone] Harry Newsome MD Attending Clinician +[phone] Antwon Cote MD Attending Clinician Unavailab Yeu Booth MD Attending Clinician [phone] Connie Davey MD Attending Clinician +[phone] Mariah Aldridge MD Attending Clinician [phone] Devora ELIZONDO, Thomas Reddy Attending Clinician + [phone] CONNIE DAVEY Attending Clinician Unavailabl Alfonso Ruiz Attending Clinician Unavailable RITCHIE MOTTA Attending Clinician Unavailable Ritchie Motta MD Attending Clinician +[phone] Rk CAMPOS, Margot Stoner Attending Clinician [phone] Reji ELIZONDO, Halima Hummel Attending Clinician +[phone] Lucho ELIZONDO, Ning Olivia Attending Clinician +[phone] Roxi ELIZONDO, Parrish Reyez Attending Clinici an PARRISH WHEATLEY Attending Clinician Unavaila DAMI Mariscal Attending Clinician Unavailable Essence ELIZONDO, Dami Attending Clinician +[phone] Maria Teresa Nicole LVN Attending Clinician + [phone] CHANTEL BOJORQUEZ Attending Clinician CHANTEL Kelly Attending Clinician Jack Mcfarlane MD, Brandyn Otoole Attending Clinician +[phone] SELINA MARTINES Attending Clinician Unavailable Glory Sarah MD Attending Clinician + Selina Martines MD Attending Clinician +[phone] Vaccine, Holiday Pedi Attending Clinician U chelsi Pak MD, Jose Attending Clinician +[phone] JOSE PAK Attending Clinician Unavailable WILLIAMS ALLISON Attending Clinician Unavaila ble Sully FIBER OPTICS TECHNICIAN, Williams F Attending Clinician [phone] Brandy CAMPOS, Miky Attending Clinician Unavailab monroe BRONSONP, Fabrice Attending Clinician +[phone] Ebrahim FIBER OPT[employer] TECHNICIAN, Jermaineia Attending Clinician [phone] Unknown, Attending Attending Clinician Unavailab le UNKNOWN, ATTENDING Attending Clinician Unavailab Estefania Berg S Attending Clinician [phone] Yehuda Arcos MD Attending Clinician +- [phone] PANKAJ OBREGON Admitting Clinician Un available MARIANELA COLLAZO Admitting Clinician Unavailab ADAM Cabrera Admitting Clinician Unavailable MARIAH ALDRIDGE Admitting Clinician Unavailable ETHAN MUÑOZ Admitting Clinician Unavailabl Di Ballard Admitting Clinician Unavailabl e Physician, No Primary or Family Admitting Clinic julio Unavailable ROCÍO WEBB Admitting Clinician Unavaila LAST Haas Admitting Clinician Unavailable Last Siegel MD Admitting Clinician [phone] UNDEFINED Admitting Clinician Unavailable Segundo Toledo Admitting Clinician Unavailable CHRISSY MOHR Admitting Clinician Unavailable RADHA WYATT Admitting Clinician Unavailable DARRICK FRY Admitting Clinician UnavailDarrick Geiger MD Admitting Clinician [phone] TAL BENAVIDEZ Admitting Clinician Unavailable Tal Benavidez MD Admitting Clinician +[phone] MOJGAN SUERO Admitting Clinician Unav ailable Mojgan Suero MD Admitting Clinician + CR FRY Admitting Clinician Unavailable CONNIE DAVEY Admitting Clinician Unavailabl Alfonso Ruiz Admitting Clinician Unavailable RITCHIE MOTTA Admitting Clinician Unavailable NING GELLER Admitting Clinician Unavaila DAIM Mariscal Admitting Clinician Unavailable Dami Lowry MD Admitting Clinician +[phone] BRANDYN MCFARLANE Admitting Clinician Unavailable Brandyn Mcfarlane MD Admitting Clinician +[phone] GLORY SARAH Admitting Clinician Unav ailable WILLIAMS ALLISON Admitting Clinician Unavaila ble Payers Payer Name Policy Type Policy Number Effective Date Expirati on Date Source [facility] CYNTHIA VORA [id number] 2023 00:00:00 ISA RICARDO [id number] 2023 00:00:00 [facility] SESAR SANCHEZ COPAY FOCUS 9 [id number] 2024 00:00:00 [facility] Valentin/ CYNTHIA VELASQUEZ [id number] 2024 00:00:00 [place] CYNTHIA GARCIA [employer]CHANGE Exchange [id number] 2024 00:00:00 MEDICAID PENDING PENDING 2022 00:00:00 Problems Condition Name Condition Details Condition Category Status Onset Date Resolution Date Last Treatment Date Treating Clinician Comments Source COPD exacerbati on COPD exacerbati on Disease Active 04-09 00:00: 00 [facility] Chest wall pain Chest wall pain Disease Active 04-09 00:00: 00 [facility] Seizure Seizure Disease Active 02-17 00:00: 00 [facility] Fall Fall Disease Active 02-17 00:00: 00 [facility] Cervical myelopathy Cervical myelopathy Disease Active 02-10 00:00: 00 Cynthia Garcia - Externa raul Nightmare Nightmare Disease Active 02-10 00:00: 00 Cynthia Garcia - Externa raul Hypothyroi dism Hypothyroi dism Disease Active 02-10 00:00: 00 Cynthia Garcia - Externa l PTSD (post-trau matic stress disorder) PTSD (post-trau matic stress disorder) Disease Active 02-10 00:00: 00 Cynthia Garcia - Externa l Psychogeni c nonepilept ic seizure Psychogeni c nonepilept ic seizure Disease Active 02-07 00:00: 00 [facility] Epic Status epilepticu s (CMS/HCC) Status epilepticu s (CMS/HCC) Disease Active 02-05 00:00: 00 [facility] Seizure Seizure Disease Active 08-10 00:00: 00 [facility] Epic Subdural hemorrhage Subdural hemorrhage Disease Active 08-10 00:00: 00 [facility] Epic 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 systolic and diastolic congestive heart failure Disease Active 01-09 00:00: 00 [facility] Hypotensio n Hypotensio n Disease Active 01-08 00:00: 00 [facility] LV (left ventricula r) mural thrombus LV (left ventricula r) mural thrombus Disease Active 12-14 00:00: 00 [facility] Pulmonary hypertensi on Pulmonary hypertensi on Disease Active 12-14 00:00: 00 [facility] Shortness of breath Shortness of breath Disease Active 12-13 00:00: 00 [facility] Other chest pain Other chest pain Disease Active 5-15 00:00: 00 [facility] Immunodefi 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 Immunodefi 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 Disease Active 10-15 00:00: 00 Cynthia gonzalez Depression Depression Disease Active 09-29 00:00: 00 Cynthia Erazoa raul Anxiety Anxiety Disease Active 09-29 00:00: 00 Cynthia Erazoa raul CAD (coronary artery disease) CAD (coronary artery disease) Disease Active 09-29 00:00: 00 Cynthia Erazoa raul COPD (chronic obstructiv e pulmonary disease) COPD (chronic obstructiv e pulmonary disease) Disease Active 09-29 00:00: 00 Cynthia Erazoa raul History of colon polyps History of colon polyps Disease Active 09-29 00:00: 00 Cynthia Erazoa raul Marijuana use Marijuana use Disease Active 09-29 00:00: 00 Cynthia Erazoa raul Seizure Seizure Disease Active 09-29 00:00: 00 Cynthia Erazoa raul Tobacco use Tobacco use Disease Active 09-29 00:00: 00 Cynthia Erazoa raul Type 2 diabetes mellitus with hyperglyce ortega, without long-term current use of insulin (multi HCC) Type 2 diabetes mellitus with hyperglyce ortega, without long-term current use of insulin (multi HCC) Disease Active 2-23 00:00: 00 Cynthia Santoyo Externa raul Type 2 diabetes mellitus with hyperglyce ortega, without long-term current use of insulin Type 2 diabetes mellitus with hyperglyce ortega, without long-term current use of insulin Disease Active 09-11 00:00: 00 Cynthia Erazoa raul CHF (congestiv e heart failure) CHF (congestiv e heart failure) Disease Active 09-11 00:00: 00 Cynthia Erazoa raul Bipolar disorder Bipolar disorder Disease Active 09-11 00:00: 00 Cynthia Santoyo Externa raul Seizure disorder Seizure disorder Disease Active 09-11 00:00: 00 Cynthia Erazoa raul Prediabete s Prediabete s Disease Active 09-11 00:00: 00 Cynthia Erazoa raul Bilateral leg weakness Bilateral leg weakness Disease Active 2022-07 00:00: 00 [facility] Bilateral leg weakness Bilateral leg weakness Disease Active 2022-07 00:00: 00 [facility] Pneumonia Pneumonia Disease Active 2022-07 00:00: 00 [facility] Cavitary lesion of lung Cavitary lesion of lung Disease Active 2022-07 00:00: 00 [facility] Cervical myelopathy Cervical myelopathy Disease Recurre nce 2022-07 00:00: 00 [facility] Cervical disc disorder with myelopathy , high cervical region Cervical disc disorder with myelopathy , high cervical region Disease Active 2022-07 00:00: 00 [facility] Cord compressio n Cord compressio n Disease Recurre nce - 00:00: 00 [facility] Cauda equina compressio n Cauda equina compressio n Disease Active 03-30 00:00: 00 [facility] Seizure Seizure Disease Recurre nce -14 00:00: 00 [facility] Cardiomyop athy Cardiomyop athy Disease Active 08-01 00:00: 00 [facility] NSVT (nonsustai keisha ventricula r tachycardi a) NSVT (nonsustai keisha ventricula r tachycardi a) Disease Active 08-01 00:00: 00 [facility] Elevated brain natriureti c peptide (BNP) level Elevated brain natriureti c peptide (BNP) level Disease Active 07-31 00:00: 00 [facility] Chest pain, unspecifie d type Chest pain, unspecifie d type Disease Active 07-31 00:00: 00 [facility] Elevated brain natriureti c peptide (BNP) level Elevated brain natriureti c peptide (BNP) level Disease Active 07-31 00:00: 00 [facility] Coronary artery disease involving inaja coronary artery of inaja heart without angina pectoris Coronary artery disease involving inaja coronary artery of inaja heart without angina pectoris Disease Active 07-31 00:00: 00 [facility] Snores Snores Disease Active 07-31 00:00: 00 [facility] Cigarette smoker Cigarette smoker Disease Active 07-31 00:00: 00 [facility] Primary hypertensi on Primary hypertensi on Disease Active 07-31 00:00: 00 [facility] Other hyperlipid emia Other hyperlipid emia Disease Active 07-31 00:00: 00 [facility] Coronary artery disease involving inaja coronary artery of inaja heart without angina pectoris Coronary artery disease involving inaja coronary artery of inaja heart without angina pectoris Disease Active 07-31 00:00: 00 [facility] Chronic bilateral low back pain with bilateral sciatica Chronic bilateral low back pain with bilateral sciatica Disease Active 2021-07 0-17 00:00: 00 [facility] 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 Disease Active 04-15 00:00: 00 [facility] Neuroforam inal stenosis of cervical spine Neuroforam inal stenosis of cervical spine Disease Active 04-15 00:00: 00 [facility] Stroke-lik e symptoms Stroke-lik e symptoms Disease Active 04-13 00:00: 00 [facility] Bipolar disorder, in partial remission, most recent episode manic Bipolar disorder, in partial remission, most recent episode manic Disease Active 09-27 00:00: 00 [facility] Neuroforam inal stenosis of lumbar spine Neuroforam inal stenosis of lumbar spine Disease Active 09-27 00:00: 00 [facility] Bilateral acute otitis media, recurrence not specified, unspecifie d otitis media type Bilateral acute otitis media, recurrence not specified, unspecifie d otitis media type Disease Active 09-27 00:00: 00 [facility] Lumbar spinal stenosis Lumbar spinal stenosis Disease Active 09-27 00:00: 00 [facility] Right-side d low back pain with sciatica, sciatica laterality unspecifie d Right-side d low back pain with sciatica, sciatica laterality unspecifie d Disease Active 09-27 00:00: 00 [facility] Generalize d anxiety disorder Generalize d anxiety disorder Disease Active 09-27 00:00: 00 [facility] Agoraphobi a Agoraphobi a Disease Active 09-27 00:00: 00 [facility] Bipolar disorder, in partial remission, most recent episode manic Bipolar disorder, in partial remission, most recent episode manic Disease Active 09-27 00:00: 00 [facility] Obsessive compulsive disorder Obsessive compulsive disorder Disease Active 09-27 00:00: 00 [facility] Breast mass, left Breast mass, left Disease Active 09-17 00:00: 00 [facility] Anxiety Anxiety Disease Active 09-17 00:00: 00 [facility] Lower back pain Lower back pain Disease Active 09-17 00:00: 00 [facility] High blood pressure High blood pressure Disease Active 09-17 00:00: 00 [facility] COPD (chronic obstructiv e pulmonary disease) COPD (chronic obstructiv e pulmonary disease) Disease Active 09-17 00:00: 00 [facility] Obesity Obesity Disease Active 09-17 00:00: 00 [facility] Breast pain Breast pain Disease Resolve d 01 00:00: 00 2015-09-18 00:00:00 2015-09-18 13:19:09 [facility] Allergies, Adverse Reactions, Alerts Allergy Name Allergy Type Status Severity Reaction(s) Onset Date Inactive Date Treating Clinician Comments Source levetira cetam DA Active SV SOB/HIVES 7-28 00:00: 00 [facility] Levetira cetam Propensi ty to adverse reaction s Active Other 7- 00:00: 00 [facility] Levetira cetam Propensi ty to adverse reaction s Active -20 00:00: 00 Blade Bolaños Epic levetira cetam DA Active SV "MAKES ME FEEL FUNNY" 4- 00:00: 00 [facility] levetira cetam DA Active SV UNCONSCIOUS 3-31 00:00: 00 [facility] are [facility] Levetira cetam Propensi ty to adverse reaction s Active 1-22 00:00: 00 Blade Bolaños Epic Levetira cetam ([id number]) Allergy to substanc e Active Severe seizures worsen 2-15 00:00: 00 [facility] FLUOXETI NE Allergy Active - 00:00: 00 [facility] GREEN TEA Allergy Active High Other 9-10 00:00: 00 [facility] LEVETIRA CETAM Allergy Active High N\\T\\V 9-10 00:00: 00 [facility] Green Tea Propensi ty to adverse reaction s Active 9-10 00:00: 00 Seizure like activity [facility] Levetira cetam Propensi ty to adverse reaction s Active Nausea And Vomiting 9-10 00:00: 00 Intensifi es seizure [facility] Fluoxeti ne Propensi ty to adverse reaction s Active 9- 00:00: 00 [facility] Green Tea Drug Allergy Active Other (See Comments) 03-29 00:00: 00 Seizure like activity [facility] Levetira cetam Drug Allergy Active Nausea And Vomiting 03-29 00:00: 00 Intensifi es seizure [facility] LEVETIRA CETAM DRUG INGREDI Active Other-Cmnt 11-17 00:00: 00 [facility] Levetira cetam Propensi ty to adverse reaction s Active Other - See comments 11-17 00:00: 00 Makes seizures worse [facility] Levetira cetam Propensi ty to adverse reaction s Active Anaphylaxis, Nausea and Vomiting, Other 11-17 00:00: 00 Intensifi es seizure Makes seizures worse Makes seizures worse Intensifi es seizure Other Reaction( s): "MAKES ME FEEL FUNNY", UNCONSCIO US Cynthia gonzalez Green Tea Propensi ty to adverse reaction s Active 08-02 00:00: 00 [facility] GREEN TEA Allergy Active 08-02 00:00: 00 [facility] Fluoxeti ne Propensi ty to adverse reaction s Active Rash 08-02 00:00: 00 [facility] FLUOXETI NE Allergy Active Med Rash 08-02 00:00: 00 [facility] Fluoxeti ne Propensi ty to adverse reaction s Active Unknown - See comments 03-25 00:00: 00 [facility] FLUOXETI NE DRUG INGREDI Active Unknown-Cmnt 03-25 00:00: 00 [facility] DICLOFEN AC DRUG INGREDI Active HYPERTENSION 11-20 00:00: 00 [facility] Diclofen ac Propensi ty to adverse reaction s Active Anxiety 11-20 00:00: 00 Cynthia gonzalez GREEN TEA DRUG INGREDI Active Med Other-Cmnt 08-10 00:00: 00 [facility] Green Tea Propensi ty to adverse reaction s to drug Active Other - See comments 08-10 00:00: 00 [facility] Green Tea Propensi ty to adverse reaction s Active Other, Anxiety 2015-0 08-10 00:00: 00 Seizure like activity Seizures Seizures Seizure like activity Cynthia Garcia - Externa l FLUOXETI NE HCL DRUG INGREDI Active Hives 03-19 00:00: 00 [facility] Fluoxeti ne Hcl Propensi ty to adverse reaction s Active Hives 03-19 00:00: 00 [facility] Family History Family Member Diagnosis Comments Start Date Stop Date Sourc e Natural mother Alcohol abuse [facility] Natural mother Stroke [facility] Natural mother Alcohol abuse C [facility] Natural mother Cancer [facility] Natural mother Diabetes [facility] Natural mother Heart disease C [facility] Natural mother Hyperlipidemia [facility] Natural mother Kidney disease [facility] Natural mother Stroke [facility] Paternal uncle Diabetes [facility] Social History Social Habit Start Date Stop Date Quantity Comments Source Gender identity 2025-02-14 07:01:26 Identifies as female gender (finding) [facility] History of tobacco use 1986-01-04 00:00:00 Cigarette Smoker Cynthia Garcia - External History SDOH Alcohol Frequency [facility] History SDOH Alcohol Std Drinks [facility] History SDOH Alcohol Binge [facility] History SDOH Housing Homeless Last Year [facility] ASSERTION Not [facility] Sexual orientation C [facility] History SDOH Social Connections Get Together [facility] History SDOH Social Connections [facility] History SDOH Social Connections Membership [facility] History SDOH Social Connections Meetings [facility] History of Occupation Cynthia Garcia - External Sex 2025-02-07 17:43:41 2025-02-07 17:43:41 Female (finding) [facility] Tobacco use and exposure 2023-11-25 00:00:00 2023-11-25 00:00:00 Smokeless tobacco non-user [facility] Alcohol intake 2023-09-30 00:00:00 2023-09-30 00:00:00 .57 /d Cynthia Garcia - External Education 2023-09-30 00:00:00 2023-09-30 00:00:00 14 Cynthia Garcia - External History of Social function 2023-08-03 00:00:00 2023-08-03 00:00:00 [facility] Alcoholic beverage intake 2023-06-02 00:00:00 2023-06-02 00:00:00 Current drinker of alcohol (finding) [facility] Exposure to SARS-CoV-2 (event) 2023-05-18 00:00:00 2023-05-28 07:28:00 Not sure [facility] History SDOH Housing Unable to Pay - In the last 12 months, was there a time when you were not able to pay the mortgage or rent on time? 2023-05-26 00:00:00 2023-05-26 00:00:00 Yes [facility] Cigarette pack-years 2023-05-26 00:00:00 2023-05-26 00:00:00 [facility] Cigarettes smoked current (pack per day) - Reported 2023-05-26 00:00:00 2023-05-26 00:00:00 [facility] History SDOH Housing Places Lived 2023-03-30 00:00:00 2023-03-30 00:00:00 1 [facility] Alcohol Comment 2023-03-29 00:00:00 2023-03-29 00:00:00 2x a week [facility] History SDOH Social Connections Phone 2022-08-01 00:00:00 2022-08-01 00:00:00 5 [facility] History SDOH Social Connections Living 2022-08-01 00:00:00 2022-08-01 00:00:00 5 [facility] History SDOH Physical Activity DPW 2022-08-01 00:00:00 2022-08-01 00:00:00 0 [facility] History SDOH Physical Activity MPS 2022-08-01 00:00:00 2022-08-01 00:00:00 0 [facility] History SDOH Financial 2022-08-01 00:00:00 2022-08-01 00:00:00 3 [facility] History SDOH Food Worry 2022-08-01 00:00:00 2022-08-01 00:00:00 1 [facility] History SDOH Food Scarcity 2022-08-01 00:00:00 2022-08-01 00:00:00 1 [facility] History SDOH Transport Med 2022-08-01 00:00:00 2022-08-01 00:00:00 2 [facility] History SDOH Transport Non-Med 2022-08-01 00:00:00 2022-08-01 00:00:00 2 [facility] Sex assigned at 1970 00:00:00 1970 00:00:00 [facility] Smoking Status Start Date Stop Date Source Tobacco smoking consumption unknown [facility] Smokes tobacco daily 2023-11-25 00:00:00 [facility] Never smoked tobacco Cynthia Garcia - External Ex-smoker 2023-05-26 00:00:00 2023-05-26 00:00:00 [facility] Medications Ordered Medication Name Filled Medication Name Start Date Stop Date Current Medication? Ordering Clinician Indication Dosage Frequency Signature (SIG) Comments Components Source FENTanyl (PF) (SUBLIMAZE) injection 25 mcg 04-10 00:00: 00 04-10 00:27 :00 No 25ug 25 mcg, Slow IV Push, ONCE, 1 dose, On Thu04/09/25 at 1900, STAT [facility] ipratropium -albuteroL (DUONEB) 0.5 mg-3 mg(2.5 mg base)/3 mL nebulizer solution 3 mL 04-09 22:45: 00 04-09 21:55 :00 No 3mL 3 mL, Inhalation , ONCE, 1 dose, On Thu04/09/25 at 1745, MICHAEL [facility] ondansetron (ZOFRAN (PF)) injection 4 mg 04-09 22:30: 00 04-09 22:26 :00 No 4mg 4 mg, Slow IV Push, ONCE, 1 dose, On Thu04/09/25 at 1730, Administer over 2-5 Minutes, 2 mL [facility] morpHINE (4 mg/mL) injection 4 mg 04-09 21:15: 00 04-09 21:12 :00 No 4mg 4 mg, Slow IV Push, ONCE, 1 dose, On [place] 04/09/25 at 1615, STAT [facility] benzonatate 200 mg capsule 04-09 00:00: 00 Yes [id number] 200mg Take 1 capsule by mouth 3 times daily as needed for Cough. [facility] benzonatate 100 mg capsule 04-09 00:00: 00 04-09 00:00 :00 No [id number] 100mg Take 1 capsule by mouth 3 times daily as needed for Cough. [facility] albuterol sulfate HFA 90 mcg/actuati on aerosol inhaler 04-09 00:00: 00 04-09 00:00 :00 Yes [id number] 2{puff} Inhale 2 puffs every 4 hours as needed for Wheezing or Shortness of Breath. [facility] hydrOXYzine (ATARAX) tablet 25 mg 04-06 23:30: 00 04-06 23:22 :00 No 25mg 25 mg, Oral, ONCE, 1 dose, On [facility] 04/06/25 at 1830, MICHAEL [facility] NaCl 0.9% (NS) bolus infusion 500 mL 04-06 23:30: 00 04-06 23:49 :00 No 500mL at 999 mL/hr, 500 mL, IV Infusion, ONCE, 1 dose, On [facility] 04/06/25 at 1830, MICHAEL [facility] fosphenytoi n (CEREBYX) 1,500 mg PE in NaCl 0.9% (NS) piggyback fosphenytoi n (CEREBYX) 1,500 mg PE in NaCl 0.9% (NS) piggyback 04-06 23:00: 00 04-06 23:49 :00 Yes 1500mg{ phenyto in'equi valent} 1,500 mg PE, Intravenou s, ONCE, 1 dose, On [place] 04/06/25 at 1800, 100 mL [facility] busPIRone HCl 5 MG oral Tablet busPIRone HCl 5 MG oral Tablet 04-05 00:00: 00 Yes [id number] 5mg Q.[id number] 3D Take 1 tablet (5 mg total) by mouth 3 times daily as needed (anxiety). Cynthia gonzalez Clonazepam (KlonoPIN) 0.5 MG oral Tablet Clonazepam (KlonoPIN) 0.5 MG oral Tablet 04-05 00:00: 00 Yes [id number] .5mg Q.5D Take 1 tablet (0.5 mg total) by mouth 2 times daily as needed for anxiety. Cynthia gonzalez Divalproex Sodium 500 MG oral Tablet Delayed Response Divalproex Sodium 500 MG oral Tablet Delayed Response 04-05 00:00: 00 04-05 23:59 :00 No [id number] 1000mg Q.5D Take 2 tablets (1,000 mg total) by mouth 2 times daily. Cynthia gonzalez busPIRone HCl 5 MG oral Tablet busPIRone HCl 5 MG oral Tablet 03-29 00:00: 00 04-05 00:00 :00 No [id number] 5mg Q.[id number] 3D Take 1 tablet (5 mg total) by mouth 3 times daily as needed (anxiety). Cynthia gonzalez Levothyroxi ne Sodium 25 MCG oral Tablet Levothyroxi ne Sodium 25 MCG oral Tablet 03-27 00:00: 00 Yes [id number] 25ug QD Take 1 tablet (25 mcg total) by mouth daily. Cynthia gonzalez thiamine mononitrate (VITAMIN B-1 (MONONITRAT E)) tablet 100 mg 02-26 14:00: 00 Yes 100mg 100 mg, Oral, DAILY, First dose on 02/26/25 at 0900, Until Discontinu ed, Routine [facility] thiamine mononitrate 100 mg tablet 02-26 00:00: 00 Yes [id number] 100mg Take 1 tablet by mouth in the morning. Do not start before February 26, 2025. [facility] pyridoxine, vitamin B6, 50 mg tablet 02-22 00:00: 00 Yes [id number] 100mg Take 2 tablets by mouth in the morning. [facility] thiamine (VITAMIN B1) 250 mg in NaCl 0.9% (NS) piggyback 02-20 13:00: 00 02-19 22:00 :54 No 250mg IV Piggyback, BID, 10 doses, First dose on Thu02/20/25 at 0800, Last dose on Thu02/24/25 at 2000, 50 mL [facility] busPIRone 5 mg tablet 02-20 00:00: 00 Yes [id number] 5mg Take 1 tablet by mouth in the morning. [facility] foLIC acid 1 mg tablet 02-20 00:00: 00 Yes [id number] 1mg Take 1 tablet by mouth in the morning. [facility] losartan 25 mg tablet 02-20 00:00: 00 Yes [id number] 25mg Take 1 tablet by mouth in the morning. [facility] spironolact one 25 mg tablet 02-20 00:00: 00 Yes [id number] 12.5mg Take 0.5 tablets by mouth in the morning. [facility] vitamin B-12 1,000 mcg tablet 02-20 00:00: 00 Yes [id number] 1000ug Take 1 tablet by mouth in the morning. [facility] levothyroxi ne 25 mcg tablet 02-20 00:00: 00 Yes [id number] 25ug Take 1 tablet by mouth every morning. Do not start before February 20, 2025. [facility] oxazepam (SERAX) capsule 15 mg 02-19 15:27: 16 02-19 22:00 :54 No 15mg 15 mg, Oral, [id number], 2 doses, Starting on 02/19/25 at 1027, Until 02/19/25 at 1700, Routine, Anxiety [facility] losartan (COZAAR) tablet 25 mg losartan (COZAAR) tablet 25 mg 02-19 14:00: 00 Yes 25mg 25 mg, Oral, DAILY, First dose on 02/19/25 at 0900, Until Discontinu ed, Routine [facility] malathion (OVIDE) 0.5 % lotion malathion (OVIDE) 0.5 % lotion 02-19 14:00: 00 02-19 17:00 :00 Yes Topical, Once, 1 dose, On 02/19/25 at 0900, Routine [facility] diphenhydrA MINE (BENADRYL) injection 25 mg 02-19 13:58: 57 02-19 22:00 :54 No 25mg 25 mg, Intravenou s, Q6HPRN, Starting on 02/19/25 at 0858, Until 02/19/25 at 1700, Routine, Pain (scale 7-10) [facility] proCHLORper azine (COMPAZINE) injection 10 mg proCHLORper azine (COMPAZINE) injection 10 mg 02-19 13:58: 32 02-19 15:57 :32 Yes 10mg 10 mg, Slow IV Push, Q6HPRN, Starting on 02/19/25 at 0858, Until 02/19/25 at 1057, Routine, Nausea and Vomiting (N/V) [facility] ketorolac (TORADOL) injection 30 mg 02-19 13:57: 47 02-19 22:00 :54 No 30mg 30 mg, Slow IV Push, Q6HPRN, Starting on 02/19/25 at 0857, Until 02/19/25 at 1700, Routine, Pain (scale 7-10) [facility] clonazePAM (KLONOPIN) tablet 0.5 mg clonazePAM (KLONOPIN) tablet 0.5 mg 02-19 01:00: 00 Yes .5mg 0.5 mg, Oral, TID, First dose on 02/18/25 at 2000, Until Discontinu ed, Routine [facility] gabapentin (NEURONTIN) tablet 600 mg gabapentin (NEURONTIN) tablet 600 mg 02-19 01:00: 00 02-19 22:00 :54 Yes 600mg 600 mg, Oral, TID, First dose (after last modificati on) on 02/18/25 at 1999, Until Discontinu ed, Routine [facility] carvediloL 3.125 mg tablet 02-19 00:00: 00 Yes [id number] 3.125mg Take 1 tablet by mouth in the morning and 1 tablet in the evening. Take with meals. [facility] methocarbam oL 500 mg tablet 02-19 00:00: 00 Yes [id number] 500mg Take 1 tablet by mouth in the morning and 1 tablet in the evening. [facility] thiamine 100 mg tablet 02-19 00:00: 00 Yes [id number] 100mg Take 1 tablet by mouth in the morning. [facility] gabapentin 300 mg capsule 02-19 00:00: 00 Yes [id number] 600mg Take 2 capsules by mouth in the morning and 2 capsules at noon and 2 capsules in the evening. [facility] Folic Acid 1 MG oral tablet Folic Acid 1 MG oral tablet 02-19 00:00: 00 Yes Cynthia Garcia - Externa l Constulose 10 GM/15ML oral Solution Constulose 10 GM/15ML oral Solution 02-19 00:00: 00 Yes Cynthia Santoyo Externa l lactulose 10 gram/15 mL solution 02-19 00:00: 00 08-19 05:59 :00 Yes [id number] 30mL Take 30 mL by mouth 2 times daily as needed for Constipati on. [facility] clonazePAM 0.5 mg tablet 02-19 00:00: 00 08-19 05:59 :00 Yes [id number] .5mg Take 1 tablet by mouth at bedtime as needed for Insomnia. [facility] Lactulose Encephalopa thy 10 GM/15ML oral Solution Lactulose Encephalopa thy 10 GM/15ML oral Solution 02-19 00:00: 00 08-18 23:59 :00 No 20g Q.5D Take 30 mL (20 g total) by mouth 2 times daily as needed. Cynthia gonzalez midazolam (NAYZILAM) 5 mg/spray (0.1 mL) [place] 02-19 00:00: 00 03-22 04:59 :00 Yes [id number] 1{spray } Use 1 [place] in 1 nostril SEE-INSTRU CTIONS. Emergency rescue treatment for seizures Comment: Discussed midazolam nasal spray and instructio ns for use, and she is agreeable. Plan: midazolam (NAYZILAM) 5 mg/spray (0.1 mL) [facility] perflutren protein-A microsphr (OPTISON) injection 3 mL 02-18 21:30: 00 02-18 21:30 :00 No [id number] 3mL 3 mL, IV Push, ONCE, 1 dose, On 02/18/25 at 1630, Routine [facility] naproxen (NAPROSYN) tablet 500 mg 02-18 20:43: 40 02-19 22:00 :54 No 500mg 500 mg, Oral, Q8HPRN, Starting on 02/18/25 at 1543, Until 02/19/25 at 1700, Routine, Alternate with [place] for pain scale 1-3 [facility] diazePAM (VALIUM) injection 1 mg diazePAM (VALIUM) injection 1 mg 02-18 18:50: 44 02-19 22:00 :54 Yes 1mg 1 mg, Intravenou s, PRN - SEE INSTRUCTIO NS, Starting on 02/18/25 at 1350, Until 02/19/25 at 1700, Routine, Seizures [facility] spironolact one (ALDACTONE) tablet 12.5 mg spironolact one (ALDACTONE) tablet 12.5 mg 02-18 15:30: 00 Yes 12.5mg 12.5 mg, Oral, DAILY, First dose on 02/18/25 at 1030, Until Discontinu ed, Routine [facility] butalbital- acetaminoph en-caff (ESGIC) 50-325-40 mg tablet 1 tablet butalbital- acetaminoph en-caff (ESGIC) 50-325-40 mg tablet 1 tablet 02-18 15:00: 00 02-18 15:10 :00 Yes 1{tbl} 1 tablet, Oral, Once, 1 dose, On Thu02/18/25 at 1000, Routine [facility] prazosin (MINIPRES) capsule 1 mg prazosin (MINIPRES) capsule 1 mg 02-18 02:00: 00 02-19 22:00 :54 Yes 1mg 1 mg, Oral, QHS, First dose on Thu02/17/25 at 2100, Until Discontinu ed, Routine [facility] atorvastati n (LIPITOR) tablet 20 mg atorvastati n (LIPITOR) tablet 20 mg 02-18 02:00: 00 02-19 22:00 :54 Yes 20mg 20 mg, Oral, QHS, First dose on Thu02/17/25 at 2100, Until Discontinu ed, Routine [facility] enoxaparin (LOVENOX) injection 40 mg enoxaparin (LOVENOX) injection 40 mg 02-17 22:00: 00 02-19 22:00 :54 Yes 40mg 40 mg, Subcutaneo us, DAILY AT 1700, First dose on Thu02/17/25 at 1700, Until Discontinu ed, Routine [facility] vitamin B-12 (CYANOCOBAL YODER) tablet 1,000 mcg vitamin B-12 (CYANOCOBAL YODER) tablet 1,000 mcg 02-17 20:15: 00 Yes 1000ug 1,000 mcg, Oral, DAILY, First dose on Thu02/17/25 at 1515, Until Discontinu ed, Routine [facility] acetaminoph en-codeine (TYLENOL #3) 300-30 mg tablet 1 tablet acetaminoph en-codeine (TYLENOL #3) 300-30 mg tablet 1 tablet 02-17 17:38: 48 02-19 22:00 :54 Yes 1{tbl} 1 tablet, Oral, Q6HPRN, Starting on Thu02/17/25 at 1238, Until Thu02/19/25 at 1700, Routine, Pain (scale 7-10) [facility] foLIC acid (FOLATE) tablet 1 mg foLIC acid (FOLATE) tablet 1 mg 02-17 14:00: 00 Yes 1mg 1 mg, Oral, DAILY, First dose on Thu02/17/25 at 0900, Until Discontinu ed, Routine [facility] busPIRone (BUSPAR) tablet 5 mg busPIRone (BUSPAR) tablet 5 mg 02-17 14:00: 00 Yes 5mg 5 mg, Oral, DAILY, First dose on Thu02/17/25 at 0900, Until Discontinu ed, Routine [facility] furosemide (LASIX) tablet 40 mg furosemide (LASIX) tablet 40 mg 02-17 14:00: 00 02-19 01:30 :56 Yes 40mg 40 mg, Oral, QAM+PM, First dose on Thu02/17/25 at 0900, Until Discontinu ed, [facility]ine [facility] DULoxetine (CYMBALTA) capsule 30 mg DULoxetine (CYMBALTA) capsule 30 mg 02-17 14:00: 00 02-19 22:00 :54 Yes 30mg 30 mg, Oral, DAILY, First dose on Thu02/17/25 at 0900, Until Discontinu ed, Routine [facility] aspirin chewable tablet 81 mg aspirin chewable tablet 81 mg 02-17 14:00: 00 02-19 22:00 :54 Yes 81mg 81 mg, Oral, DAILY, First dose on Thu02/17/25 at 0900, Until Discontinu ed, Routine [facility] lactulose (CEPHULAC) solution 30 mL lactulose (CEPHULAC) solution 30 mL 02-17 13:00: 00 Yes 30mL 30 mL, Oral, BID, First dose on Thu02/17/25 at 0800, Until Discontinu ed, Routine [facility] methocarbam oL (ROBAXIN) tablet 500 mg methocarbam oL (ROBAXIN) tablet 500 mg 02-17 13:00: 00 Yes 500mg 500 mg, Oral, BID, First dose on Thu02/17/25 at 0800, Until Discontinu ed, Routine [facility] carvediloL (COREG) tablet 3.125 mg carvediloL (COREG) tablet 3.125 mg 02-17 13:00: 00 Yes 3.125mg 3.125 mg, Oral, BID MEALS, First dose on Thu02/17/25 at 0800, Until Discontinu ed, Routine [facility] Sliding Scale Insulin - Lispro (HumaLOG) [id number] 7079-0 8-01 13:00: 00 02-19 22:00 :54 Yes Subcutaneo us, TID MEALS+HS, First dose on Thu02/17/25 at 0800, Until Discontinu ed, Routine [facility] thiamine (VITAMIN B1) 500 mg in NaCl 0.9% (NS) piggyback thiamine (VITAMIN B1) 500 mg in NaCl 0.9% (NS) piggyback 02-17 13:00: 00 02-19 22:00 :54 Yes 500mg IV Piggyback, TID, 9 doses, First dose on Thu02/17/25 at 0800, Last dose on Thu02/19/25 at 2000, 50 mL [facility] divalproex ER (DEPAKOTE ER) 24 hr tablet 1,000 mg divalproex ER (DEPAKOTE ER) 24 hr tablet 1,000 mg 02-17 13:00: 00 02-19 22:00 :54 Yes 1000mg 1,000 mg, Oral, Q12H, First dose on Thu02/17/25 at 0800, Until Discontinu ed, Routine [facility] gabapentin (NEURONTIN) capsule 300 mg gabapentin (NEURONTIN) capsule 300 mg 02-17 13:00: 00 02-18 20:43 :56 Yes 300mg 300 mg, Oral, TID, First dose on Thu02/17/25 at 0800, Until Discontinu ed, Routine [facility] pantoprazol e (PROTONIX) 40 mg in NaCl 0.9% (NS) 10 mL syringe pantoprazol e (PROTONIX) 40 mg in NaCl 0.9% (NS) 10 mL syringe 02-17 12:00: 00 02-19 22:00 :54 Yes 40mg 40 mg, Slow IV Push, Administer over 2 Minutes, Q24H, First dose on Thu02/17/25 at 0700, Until Discontinu ed, Routine [facility] levothyroxi ne (SYNTHROID) tablet 25 mcg levothyroxi ne (SYNTHROID) tablet 25 mcg 02-17 11:00: 00 Yes 25ug 25 mcg, Oral, QAM-0600, First dose on Thu02/17/25 at 0600, Until Discontinu ed, Routine [facility] glucagon HCL injection 1 mg 02-17 10:47: 15 02-19 22:00 :54 No 1mg 1 mg, Intramuscu lar, PRN, Starting on Thu02/17/25 at 0547, Until 02/19/25 at 1700, MICHAEL, Low blood sugar, Blood Glucose < or = 70 mg/dL and patient is NPO, unable to swallow or has mental changes. [facility] dextrose 50 % in water (D50W) injection 25 mL 02-17 10:47: 15 02-19 22:00 :54 No 25mL 25 mL, Slow IV Push, PRN, Starting on Thu02/17/25 at 0547, Until Thu02/19/25 at 1700, MICHAEL, Blood Glucose < or = 70 mg/dL and patient is NPO, unable to swallow or has mental status changes. [facility] oxazepam (SERAX) capsule 15 mg 02-17 10:30: 13 02-19 22:00 :54 No 15mg 15 mg, Oral, Q4HPRN, Starting on Thu02/17/25 at 0530, Until 02/19/25 at 1700, Routine, Only while awake for DBP equal to or greater than 100, HR equal to or greater than 100. [facility] acetaminoph en (TYLENOL) tablet 650 mg acetaminoph en (TYLENOL) tablet 650 mg 02-17 10:24: 45 02-19 22:00 :54 Yes 650mg 650 mg, Oral, Q6HPRN, Starting on Thu02/17/25 at 0524, Until 02/19/25 at 1700, Routine, Pain (scale 4-6), Pain (scale 1-3), Temp > 38 C [facility] ipratropium -albuteroL (DUONEB) 0.5 mg-3 mg(2.5 mg base)/3 mL nebulizer solution 3 mL 02-17 10:23: 50 02-19 22:00 :54 No 1{ampul e} [facility] diazePAM (VALIUM) injection 2 mg 02-13 21:15: 00 02-13 21:40 :00 No 2mg 2 mg, Slow IV Push, ONCE, 1 dose, On Thu02/13/25 at 1615, STAT [facility] ketorolac (TORADOL) injection 15 mg 02-13 20:45: 00 02-13 19:51 :00 No 15mg 15 mg, Slow IV Push, ONCE, 1 dose, On Thu02/13/25 at 1545, Routine [facility] diazePAM (VALIUM) injection 2 mg 02-13 19:30: 00 02-13 18:49 :00 No 2mg 2 mg, Slow IV Push, ONCE, 1 dose, On Thu02/13/25 at 1430, MICHAEL [facility] Metformin HCl 500 MG oral Tablet Metformin HCl 500 MG oral Tablet 02-10 15:43: 56 02-10 00:00 :00 No 500mg QD Take 1 tablet (500 mg total) by mouth daily (with breakfast) . Cynthia gonzalez Prazosin HCl 1 MG oral Capsule Prazosin HCl 1 MG oral Capsule 02-10 00:00: 00 Yes [id number] 1mg QD Take 1 capsule (1 mg total) by mouth nightly. Cynthia gonzalez Duloxetine HCl [address] [facility] Duloxetine HCl [address] [facility] 02-10 00:00: 00 Yes [id number] 20mg QD Take 1 capsule (20 mg total) by mouth daily. Cynthia gonzalez Carvedilol 3.125 MG oral Tablet Carvedilol 3.125 MG oral Tablet 02-10 00:00: 00 Yes [id number] 3.125mg Take 1 tablet (3.125 mg total) by mouth in the morning and 1 tablet (3.125 mg total) in the evening. Take with meals. Cynthia gonzalez Clonazepam (KlonoPIN) 0.5 MG oral Tablet Clonazepam (KlonoPIN) 0.5 MG oral Tablet 02-10 00:00: 00 04-05 00:00 :00 No [id number] .5mg Q.5D Take 1 tablet (0.5 mg total) by mouth 2 times daily as needed for anxiety. Cynthia gonzalez busPIRone HCl 5 MG oral Tablet busPIRone HCl 5 MG oral Tablet 02-09 00:00: 00 Yes [id number] 5mg Q.[id number] 3D Take 1 tablet (5 mg total) by mouth 3 times daily. Cynthia gonzalez Levothyroxi ne Sodium 25 MCG oral Tablet Levothyroxi ne Sodium 25 MCG oral Tablet 02-09 00:00: 00 Yes [id number] 25ug QD Take 1 tablet (25 mcg total) by mouth daily. Cynthia gonzalez divalproex (Depakote) 500 MG EC tablet divalproex (Depakote) 500 MG EC tablet 02-09 00:00: 00 04-10 23:59 :00 No 1000mg Q.5D Take 2 tablets by mouth in the morning and 2 tablets in the evening. Do not crush, chew, or split. [facility] gabapentin (Neurontin) 300 MG capsule gabapentin (Neurontin) 300 MG capsule 02-09 00:00: 00 03-11 23:59 :00 Yes 600mg Q.[id number] 3D Take 2 capsules by mouth in the morning and 2 capsules at noon and 2 capsules before bedtime. [facility] methocarbam ol (Robaxin) 500 MG tablet methocarbam ol (Robaxin) 500 MG tablet 02-09 00:00: 00 02-19 23:59 :00 Yes 500mg Q.5D Take 1 tablet by mouth in the morning and 1 tablet in the evening. Do all this for 10 days. [facility] gabapentin (Neurontin) capsule 300 mg gabapentin (Neurontin) capsule 300 mg 02-08 09:00: 00 Yes 300mg Q.[id number] 3D 300 mg, Oral, 3 times daily, First dose on Thu02/08/25 at 0900 Jackybrenda raul [facility] gabapentin (Neurontin) 300 MG capsule gabapentin (Neurontin) 300 MG capsule 02-08 00:00: 00 03-10 23:59 :00 Yes 300mg Q.[id number] 3D Take 1 capsule by mouth in the morning and 1 capsule at noon and 1 capsule in the evening. Do not start before February 08, 2025. [facility] gabapentin (Neurontin) capsule 300 mg gabapentin (Neurontin) capsule 300 mg 02-07 12:00: 00 Yes 300mg 300 mg, Oral, Once, On Thu02/07/25 at 1200, For 1 dose [facility] ipratropium -albuterol (Duo-Neb) 0.5-2.5 mg/3 mL nebulizer solution 3 mL ipratropium -albuterol (Duo-Neb) 0.5-2.5 mg/3 mL nebulizer solution 3 mL 02-07 09:15: 00 Yes 3mL Q6H 3 mL, Nebulizati on, Every 6 hours PRN, per respirator y pathway, Starting on Thu02/07/25 at 0915 [facility] divalproex (Depakote) 500 MG EC tablet divalproex (Depakote) 500 MG EC tablet 02-07 00:00: 00 03-09 23:59 :00 Yes 1000mg Q.5D Take 2 tablets by mouth in the morning and 2 tablets before bedtime. Do not crush, chew, or split. [facility] methocarbam ol (Robaxin) 500 MG tablet methocarbam ol (Robaxin) 500 MG tablet 02-07 00:00: 00 02-22 23:59 :00 Yes 500mg Q.5D Take 1 tablet by mouth 2 times a day as needed for muscle spasms for up to 15 days. [facility] gabapentin (Neurontin) 100 MG capsule gabapentin (Neurontin) 100 MG capsule 02-07 00:00: 00 02-07 00:00 :00 No 100mg Q.5D Take 1 capsule by mouth in the morning and 1 capsule before bedtime. [facility] morphine PF injection 2 mg morphine PF injection 2 mg 02-06 20:30: 00 02-06 20:37 :00 No 2mg 2 mg, Intravenou s, Once, On Thu02/06/25 at 2030, For 1 dose [facility] ketorolac (Toradol) injection 15 mg ketorolac (Toradol) injection 15 mg 02-06 18:30: 00 02-06 18:21 :00 No 15mg 15 mg, Intravenou s, Once, On Thu02/06/25 at 1830, For 1 dose [facility] lidocaine 4 % patch 1 patch lidocaine 4 % patch 1 patch 02-06 18:00: 00 Yes 1{patch } QD 1 patch, Apply externally , Administer over 12 Hours, Daily, First dose on Thu02/06/25 at 1800, Patch is applied to intact skin to cover painful area for up to 12 hours in a 24-hour period (12 hours on and 12 hours off). Apply to painful area. Remove old patch before applicatio n of new patch. [facility] ketorolac (Toradol) injection 15 mg ketorolac (Toradol) injection 15 mg 02-06 17:45: 00 02-06 17:31 :00 No 15mg 15 mg, Intravenou s, Once, On Thu02/06/25 at 1745, For 1 dose [facility] sulfur hexafluorid e lipid-type A microsphere s (Lumason) 60.7-25 MG Injectable suspension 2 mL sulfur hexafluorid e lipid-type A microsphere s (Lumason) 60.7-25 MG Injectable suspension 2 mL 02-06 12:53: 48 02-06 12:15 :00 No 2mL 2 mL, Intravenou s, Once in imaging, Starting on Thu02/06/25 at 1253, For 1 dose, Reconstitu te with 5 mL of PF NS only using provided Mini-Gerald ; shake vigorously for 20 sec until a homogenous white milky suspension forms. Use immediatel y. May repeat once during procedure. [facility] gabapentin (Neurontin) capsule 300 mg gabapentin (Neurontin) capsule 300 mg 02-06 12:40: 00 Yes 300mg 300 mg, Oral, Once, On Thu02/06/25 at 1245, For 1 dose [facility] polyethylen e glycol (PEG) 3350 (Miralax) packet 17 g polyethylen e glycol (PEG) 3350 (Miralax) packet 17 g 02-06 09:00: 00 Yes 17g Q.5D 17 g, Oral, 2 times daily, First dose on Thu02/06/25 at 0900, Dissolve 17 g in 120 to 240 mL (4 to 8 ounces) of beverage. Blade Hare senna-docus ate (Grace-Colac e) 8.6-50 mg per tablet 1 tablet senna-docus ate (Grace-Colac e) 8.6-50 mg per tablet 1 tablet 02-06 09:00: 00 Yes 1{tbl} Q.5D 1 tablet, Oral, 2 times daily, First dose on Thu02/06/25 at 0900 [facility] H[facility] heparin injection 5,000 Units heparin injection 5,000 Units 02-06 09:00: 00 Yes 5000U Q8H 5,000 Units, Subcutaneo us, Every 8 hours, First dose on Thu02/06/25 at 0900 Blade Hare divalproex (Depakote) EC tablet 1,000 mg divalproex (Depakote) EC tablet 1,000 mg 02-06 09:00: 00 Yes 1000mg Q.5D 1,000 mg, Oral, Every 12 hours scheduled, First dose on Thu02/06/25 at 0900, Do not crush, chew, or split. [facility] H[facility] ipratropium -albuterol (Duo-Neb) 0.5-2.5 mg/3 mL nebulizer solution 3 mL ipratropium -albuterol (Duo-Neb) 0.5-2.5 mg/3 mL nebulizer solution 3 mL 02-06 09:00: 00 02-07 09:05 :03 No 3mL [id number] 3D 3 mL, Nebulizati on, 3 times daily RT, First dose (after last modificati on) on Thu02/06/25 at 0900 Blade Hare LORazepam (Ativan) injection 2 mg LORazepam (Ativan) injection 2 mg 02-06 09:00: 00 02-06 08:26 :00 No 2mg 2 mg, Intravenou s, Once, On Thu02/06/25 at 0900, For 1 dose Blade Hare oxyCODONE (Roxicodone ) immediate release tablet 5 mg oxyCODONE (Roxicodone ) immediate release tablet 5 mg 02-06 05:28: 21 Yes 5mg Q6H 5 mg, Oral, Every 6 hours PRN, severe pain (7-10), Starting on Thu02/06/25 at 0528 [facility] Hare methocarbam ol (Robaxin) tablet 500 mg methocarbam ol (Robaxin) tablet 500 mg 02-06 05:28: 05 Yes 500mg Q6H 500 mg, Oral, Every 6 hours PRN, muscle spasms, Starting on Thu02/06/25 at 0528 [facility] methocarbam ol (Robaxin) tablet 500 mg methocarbam ol (Robaxin) tablet 500 mg 02-06 02:15: 00 Yes 500mg 500 mg, Oral, Once, On Thu02/06/25 at 0215, For 1 dose [facility] Hare oxyCODONE (Roxicodone ) immediate release tablet 5 mg oxyCODONE (Roxicodone ) immediate release tablet 5 mg 02-06 02:15: 00 02-06 02:19 :00 No 5mg 5 mg, Oral, Once, On Thu02/06/25 at 0215, For 1 dose [facility] H[facility] ipratropium -albuterol (Duo-Neb) 0.5-2.5 mg/3 mL nebulizer solution 3 mL ipratropium -albuterol (Duo-Neb) 0.5-2.5 mg/3 mL nebulizer solution 3 mL 02-06 01:01: 41 02-06 08:46 :14 No 3mL Q6H 3 mL, Nebulizati on, Every 6 hours PRN, per respirator y pathway, shortness of breath, wheezing, Starting on Thu02/06/25 at 0101 Bl[facility] Hare hydrALAZINE injection 10 mg hydrALAZINE injection 10 mg 02-06 01:00: 13 Yes 10mg Q4H 10 mg, Intravenou s, Every 4 hours PRN, high blood pressure, FOR SBP > 160, Starting on Thu02/06/25 at 0100 [facility] Hare gabapentin (Neurontin) capsule 100 mg gabapentin (Neurontin) capsule 100 mg 02-06 00:45: 00 02-07 11:51 :30 No 100mg Q.5D 100 mg, Oral, Every 12 hours scheduled, First dose on Thu02/06/25 at 0045 [facility]ade Hare traMADol (Ultram) tablet 50 mg traMADol (Ultram) tablet 50 mg 02-06 00:39: 19 02-06 05:28 :27 No 50mg Q6H 50 mg, Oral, Every 6 hours PRN, severe pain (7-10), Starting on Thu02/06/25 at 0039 [facility] Hare ondansetron (Zofran) injection 4 mg ondansetron (Zofran) injection 4 mg 02-06 00:27: 05 Yes 4mg Q8H 4 mg, Intravenou s, Every 8 hours PRN, nausea, vomiting, Starting on Thu02/06/25 at 0027 Blade Hare nystatin (Mycostatin ) [id number] UNIT/GM powder nystatin (Mycostatin ) [id number] UNIT/GM powder 02-06 00:20: 45 Yes Topical, As needed, For Fungal Prophylaxi s, Starting on Thu02/06/25 at 0020, Apply to groin and intertrigi nous areas after bathing (no cornstarch baby powder). For ICU only. Blade Bolaños [facility] iohexol (OMNIPaque) 350 MG/ML injection 500 mL iohexol (OMNIPaque) 350 MG/ML injection 500 mL 02-05 23:46: 54 02-05 23:47 :00 No 500mL 500 mL, Intravenou s, Once in imaging, Starting on Thu02/05/25 at 2346, For 1 dose Blade Bolaños [facility] norepinephr ine (Levophed) 4 mg in sodium chloride 0.9 % 250 mL (0.016 mg/mL) infusion norepinephr ine (Levophed) 4 mg in sodium chloride 0.9 % 250 mL (0.016 mg/mL) infusion 02-05 21:50: 00 02-06 00:25 :14 No 5ug/min 5-20 mcg/min (18.75-75 mL/hr), Intravenou s, Continuous , Starting on Thu02/05/25 at 2150, PERIPHERAL admin: If max rate of 20 microgram/ min is reached, contact provider., Infusion Type: Titrate, Initial Dose (mcg/min): 5, Titrate by (mcg/min): 2, Every (minutes): 2-5, Target Blood Pressure (mmHg): MAP 65 or above, Max Dose (mcg/min): 20 Blade Bolaños [facility] norepinephr ine (Levophed) 1 MG/ML injection - Pyxis Override Pull norepinephr ine (Levophed) 1 MG/ML injection - Pyxis Override Pull 02-05 21:19: 12 02-05 21:40 :00 No Starting on Thu02/05/25 at 2119, For 1 dose, Created by cabinet override Blade Bolaños [facility] sodium chloride (NS) 0.9 % flush 10 mL sodium chloride (NS) 0.9 % flush 10 mL 02-05 21:00: 00 Yes 10mL Q.5D 10 mL, Intravenou s, Every 12 hours scheduled, First dose on Thu02/05/25 at 2100, Administer at least once every 12 hours Blade Bolaños [facility] acetaminoph en (Tylenol) tablet 650 mg acetaminoph en (Tylenol) tablet 650 mg 02-05 20:36: 35 Yes 650mg Q4H 650 mg, Oral, Every 4 hours PRN, other, mild pain (1-3) fever > 100.5 degrees F, Starting on Thu02/05/25 at 2035, Not to exceed more than 4000 mg of acetaminop hen in 24 hours. Blade Bolaños [facility] sennosides (Senokot) tablet 17.2 mg sennosides (Senokot) tablet 17.2 mg 02-05 20:36: 07 Yes 2{tbl} QD 17.2 mg (2 tablet), Oral, Nightly PRN, constipati on, Starting on Thu02/05/25 at 2035 Blade Bolaños [facility] sodium chloride (NS) 0.9 % flush 10 mL sodium chloride (NS) 0.9 % flush 10 mL 02-05 20:34: 38 Yes 10mL 10 mL, Intravenou s, As needed, line care, Line Flush, Starting on Thu02/05/25 at 2033 Blade Bolaños [facility] midazolam in NS (Versed) 50 mg/50mL infusion midazolam in NS (Versed) 50 mg/50mL infusion 02-05 19:20: 00 02-06 00:20 :19 No 1mg/h 1-10 mg/hr (1-10 mL/hr), Intravenou s, Continuous , Starting on Thu02/05/25 at 1920, Contact physician if dose of 10 mg/hr is reached., Infusion Type: Titrate, Initial Dose (mg/hr): 1, Titrate by (mg/hr): 1, Every (minutes): 30, Goal: Refer to Target Arousal RASS Score on Storyboard , Max Dose (mg/hr): 10 Blade Bolaños [facility] midazolam in NS (Versed) 50 mg/50mL infusion - Pyxis Override Pull midazolam in NS (Versed) 50 mg/50mL infusion - Pyxis Override Pull 02-05 19:18: 51 02-05 19:18 :00 No Starting on Thu02/05/25 at 1918, For 1 dose, Created by cabinet override Blade Bolaños [facility] fentaNYL Citrate (Sublimaze) 1000 MCG/20ML infusion fentaNYL Citrate (Sublimaze) 1000 MCG/20ML infusion 02-05 18:55: 00 02-06 00:20 :19 No 50ug/h 50-200 mcg/hr (1-4 mL/hr), Intravenou s, Continuous , Starting on Thu02/05/25 at 1855, Do not exceed max dose in ordered range; contact prescriber if goal not met or maintained at max dose., Infusion Type: Titrate, Initial Dose (mcg/hr): 50, Titrate by (mcg/hr): 25, Every (minutes): 15, Goal: Refer to Target Arousal RASS Score on Storyboard , Max Dose (mcg/hr): 200 Blade Bolaños [facility] fosphenytoi n (Cerebyx) injection 1,500 mg PE fosphenytoi n (Cerebyx) injection 1,500 mg PE 02-05 18:55: 00 02-05 19:27 :00 No 1500mg{ phenyto in'equi valent} 1,500 mg PE, Intravenou s, Administer over 30 Minutes, Once, On Thu02/05/25 at 1855, For 1 dose, Mix in 100mL NS and give over 30 minutes Recommende d infusion rate: 50 mg PE/min. Maximum rate: 150 mg PE/min. Jackyoria raul Bolaños Epic propofol (Diprivan) 10 mg/mL infusion propofol (Diprivan) 10 mg/mL infusion 02-05 18:55: 00 02-05 19:17 :53 No 5ug/kg/ min 5-50 mcg/kg/min ?89 kg (2.67-26.7 mL/hr), Intravenou s, Continuous , Starting on Thu02/05/25 at 1855, Infusion Type: Titrate, Initial Dose (mcg/kg/mi n): 5, Titrate by (mcg/kg/mi n): 5, Every (minutes): 15, Goal: Refer to Target Arousal RASS Score on Storyboard , Max Dose (mcg/kg/mi n): 50 [facility] fosphenytoi n (Cerebyx) 500 MG PE/10ML injection - Pyxis Override Pull fosphenytoi n (Cerebyx) 500 MG PE/10ML injection - Pyxis Override Pull 02-05 18:32: 36 02-05 19:27 :00 No Starting on 02/05/25 at 1832, For 1 dose, Created by cabinet override [facility] propofol (Diprivan) 1000 MG/100ML infusion - Pyxis Override Pull propofol (Diprivan) 1000 MG/100ML infusion - Pyxis Override Pull 02-05 18:32: 20 02-05 19:07 :00 No Starting on Thu02/05/25 at 1832, For 1 dose, Created by cabinet override General Anesthetic - do not give without appropriat e ventilatio n support. Do not administer propofol in same IV catheter as blood or plasma. Discard any unused portion of propofol vials and tubing after 12 hours. [facility] fentaNYL Citrate (Sublimaze) 1000 MCG/20ML infusion - Pyxis Override Pull fentaNYL Citrate (Sublimaze) 1000 MCG/20ML infusion - Pyxis Override Pull 02-05 18:30: 58 02-05 19:06 :00 No Starting on Thu02/05/25 at 1830, For 1 dose, Created by cabinet override [facility] Methocarbam ol 750 MG oral Tablet Methocarbam ol 750 MG oral Tablet 01-20 00:00: 00 02-10 00:00 :00 No TAKE 2 TABLETS BY MOUTH THREE TIMES DAILY FOR 2 DAYS Cynthia gonzalez ondansetron (Zofran) injection 4 mg ondansetron (Zofran) injection 4 mg 10-08 15:10: 00 10-08 15:27 :00 No 4mg 4 mg, Intravenou s, Once, On Thu10/08/24 at 1510, For 1 dose Jackyoria raul Hare ondansetron (Zofran) 4 MG/2ML injection - Pyxis Override Pull ondansetron (Zofran) 4 MG/2ML injection - Pyxis Override Pull 10-08 15:08: 42 10-08 15:27 :00 No Starting on Thu10/08/24 at 1508, For 1 dose, Created by cabinet override [facility] methocarbam ol (Robaxin) tablet 500 mg methocarbam ol (Robaxin) tablet 500 mg 10-08 15:00: 00 Yes 500mg 500 mg, Oral, Once, On Thu10/08/24 at 1500, For 1 dose Jackyoria raul Hare gabapentin (Neurontin) capsule 300 mg gabapentin (Neurontin) capsule 300 mg 08-10 14:55: 00 Yes 300mg 300 mg, Oral, Once, On Thu08/10/24 at 1455, For 1 dose Jackyoria raul Hare methocarbam ol (Robaxin) tablet 1,500 mg methocarbam ol (Robaxin) tablet 1,500 mg 08-10 14:55: 00 Yes 1500mg 1,500 mg, Oral, Once, On Thu08/10/24 at 1455, For 1 dose Jackybrenda raul Hare acetaminoph en (Tylenol) tablet 650 mg acetaminoph en (Tylenol) tablet 650 mg 08-10 14:55: 00 08-10 15:04 :00 No 650mg 650 mg, Oral, Once, On Thu08/10/24 at 1455, For 1 dose, Max acetaminop hen = 4000mg/day (4gm/day) Bl[facility] H[facility] HYDROcodone -acetaminop hen ([place]) 5-325 MG per tablet 1 tablet HYDROcodone -acetaminop hen ([place]) 5-325 MG per tablet 1 tablet 08-10 [...] applicatio n of new patch. [facility] thiamine (Vitamin B1) injection 500 mg thiamine (Vitamin B1) injection 500 mg 08-10 05:55: 00 08-10 07:11 :00 No 500mg 500 mg, Intravenou s, Once, On Thu08/10/24 at 0555, For 1 dose, Administer by slow IV Push over 1-2 minutes [facility] ondansetron (Zofran) injection 4 mg ondansetron (Zofran) injection 4 mg 08-10 05:55: 00 08-10 06:02 :00 No 4mg 4 mg, Intravenou s, Once, On Thu08/10/24 at 0555, For 1 dose [facility] PHENobarbit al (Luminal) injection 130 mg PHENobarbit al (Luminal) injection 130 mg 08-10 05:40: 00 08-10 06:00 :00 No 130mg 130 mg, Intravenou s, Once, On Thu08/10/24 at 0540, For 1 dose, Administer no faster than 1 mg/kg/jorge te, to a max of 60 mg/min in adults. [facility] LORazepam (Ativan) injection 1 mg LORazepam (Ativan) injection 1 mg 08-10 05:40: 00 08-10 06:02 :00 No 1mg 1 mg, Intravenou s, Once, On Thu08/10/24 at 0540, For 1 dose [facility] methocarbam ol (Robaxin) 750 MG tablet methocarbam ol (Robaxin) 750 MG tablet 08-10 00:00: 00 Yes 750mg Q.5D Take 1 tablet by mouth in the morning and 1 tablet in the evening. Do all this for 10 days. [facility] H[facility] Gabapentin 300 MG oral Capsule Gabapentin 300 MG oral Capsule 08-10 00:00: 00 Yes [id number] 300mg Q.[id number] 3D Take 1 capsule (300 mg total) by mouth 3 times daily. Cynthia gonzalez Divalproex Sodium 500 MG oral Tablet Delayed Response Divalproex Sodium 500 MG oral Tablet Delayed Response 08-10 00:00: 00 04-05 00:00 :00 No [id number] 1000mg Q.5D Take 2 tablets (1,000 mg total) by mouth 2 times daily. Cynthia gonzalez cefpodoxime (Vantin) 200 MG tablet cefpodoxime (Vantin) [...] unable to tolerate oral medication s? Yes [facility] valproate (DEPACON) 500 mg in D5W piggyback 04-03 03:30: 00 04-03 04:49 :00 No 500mg 500 mg, IV Piggyback, ONCE NOW, 1 dose, On 04/02/24 at 2245, Administer over 30 Minutes, 100 mL [facility] divalproex (DEPAKOTE) delayed release tablet 250 mg 04-03 03:15: 00 04-03 04:07 :00 No 250mg 250 mg, Oral, ONCE NOW, 1 dose, On 04/02/24 at 2215, MICHAEL [facility] ondansetron (ZOFRAN (PF)) injection 4 mg 04-03 02:30: 00 04-03 04:58 :00 No 4mg 4 mg, Slow IV Push, ONCE, 1 dose, On 04/02/24 at 2130, [facility] morpHINE (4 mg/mL) injection 4 mg 04-03 02:30: 00 04-03 04:58 :00 No 4mg 4 mg, Slow IV Push, ONCE, 1 dose, On 04/02/24 at 2130, STAT [facility] divalproex ER 500 mg 24 hr tablet 04-03 00:00: 00 Yes [id number] 1000mg Take 2 tablets by mouth every 12 (twelve) hours. [facility] KCL 20 mEq tablet 04-03 00:00: 00 04-09 04:59 :00 No [id number] 40meq Take 2 tablets by mouth in the morning for 5 days. [facility] LORazepam (ATIVAN) tablet 1 mg 01-12 04:00: 00 01-12 03:56 :00 No 1mg 1 mg, Oral, ONCE, 1 dose, On Thu01/12/24 at 2300, [facility] ondansetron (ZOFRAN (PF)) injection 8 mg 01-12 04:00: 00 01-12 03:55 :00 No 8mg 8 mg, Slow IV Push, ONCE, 1 dose, On Thu01/12/24 at 2300, [facility] morpHINE (4 mg/mL) injection 6 mg 01-12 04:00: 00 01-12 03:55 :00 No 6mg 6 mg, Slow IV Push, ONCE, 1 dose, On Thu01/12/24 at 2300, STAT [facility] mirtazapine (REMERON) tablet 15 mg 01-10 02:00: 00 Yes 15mg [facility] atorvastati n (LIPITOR) tablet 40 mg 01-10 02:00: 00 Yes 40mg [facility] MULTIVITAMI N ORAL 01-09 15:56: 06 Yes 1{tbl} Take 1 Tab by mouth daily. [facility] omega-3 fatty acids-vitam in E (FISH OIL) 1,000 mg capsule 01-09 15:56: 06 Yes 1g Take 1 g by mouth daily. [facility] loratadine (CLARITIN LIQUI-GEL) 10 mg capsule 01-09 15:56: 06 Yes Take by mouth daily. [facility] metoprolol succinate XL 50 mg 24 hr tablet 01-09 15:56: 06 01-09 00:00 :00 No 50mg Take 1 tablet by mouth in the morning. [facility] KCL (KLOR-CON M20) tablet 40 mEq 01-09 15:45: 00 01-09 17:43 :00 No 40meq 40 mEq, Oral, ONCE, 1 dose, On Thu01/10/24 at 1045, Routine [facility] ondansetron 4 mg tablet 01-09 14:46: 23 01-09 00:00 :00 No 4mg Take 1 tablet by mouth every 8 (eight) hours as needed for Nausea and Vomiting (N/V). [facility] perflutren protein-A microsphr (OPTISON) injection 3 mL 01-09 14:15: 00 01-09 14:15 :00 No [id number] 3mL 3 mL, IV Push, ONCE, 1 dose, On Thu01/10/24 at 0915, Routine [facility] tamsulosin (FLOMAX) capsule 0.4 mg 01-09 14:00: 00 Yes .4mg 0.4 mg, Oral, DAILY, First dose on Thu01/10/24 at 0900, Until Discontinu ed, Routine [facility] metoprolol succinate XL (TOPROL XL) tablet 12.5 mg 01-09 14:00: 00 Yes 12.5mg [facility] DULoxetine (CYMBALTA) capsule 30 mg 01-09 14:00: 00 Yes 30mg 30 mg, Oral, DAILY, First dose on 01/10/24 at 0900, Until Discontinu ed, Routine [facility] digoxin (LANOXIN) tablet 125 mcg 01-09 14:00: 00 Yes 125ug 125 mcg, Oral, DAILY, First dose on 01/10/24 at 0900, Until Discontinu ed [facility] aspirin chewable tablet 81 mg 01-09 14:00: 00 Yes 81mg 81 mg, Oral, DAILY, First dose on 01/10/24 at 0900, Until Discontinu ed, Routine [facility] nicotine (NICODERM) 21 mg/24 hr patch 1 Patch 01-09 13:45: 00 Yes 1{patch } 1 Patch, Topical, Administer over 24 Hours, Q24H, First dose on 01/10/24 at 0845, Until Discontinu ed, Routine [facility] gabapentin (NEURONTIN) capsule 100 mg 01-09 13:00: 00 Yes 100mg 100 mg, Oral, TID, First dose on 01/10/24 at 0800, Until Discontinu ed, Routine [facility] divalproex (DEPAKOTE) delayed release tablet 1,000 mg 01-09 13:00: 00 Yes 1000mg 1,000 mg, Oral, Q12H, First dose on 01/10/24 at 0800, Until Discontinu ed, Routine [facility] cyclobenzap rine (FLEXERIL) tablet 5 mg 01-09 13:00: 00 Yes 5mg 5 mg, Oral, TID, First dose on 01/10/24 at 0800, Until Discontinu ed, Routine [facility] apixaban (ELIQUIS) tablet 5 mg 01-09 13:00: 00 02-27 12:59 :00 No [id number] 5mg 5 mg, Oral, BID, 98 doses, First dose on 01/10/24 at 0800, Last dose on 02/27/24 at 2000, Routine, Indication s: DVT/PE [facility] FENTanyl PF (SUBLIMAZE (PF)) injection 25 mcg 01-09 03:08: 20 01-10 03:07 :20 No 25ug 25 mcg, Slow IV Push, Q4HPRN, Starting on 01/09/24 at 2208, Until 01/10/24 at 2207, Routine, Pain (scale 7-10), Pain (scale 4-6) [facility] acetaminoph en (TYLENOL) tablet 650 mg 01-09 03:08: 07 Yes 650mg 650 mg, Oral, Q6HPRN, Starting on 01/09/24 at 2208, Until Discontinu ed, Routine, Pain (scale 1-3) [facility] ondansetron (ZOFRAN (PF)) injection 4 mg 01-09 02:45: 00 01-09 01:53 :00 No 4mg 4 mg, Slow IV Push, ONCE, 1 dose, On 01/09/24 at 2145, MICHAEL [facility] ipratropium -albuteroL (DUONEB) 0.5 mg-3 mg(2.5 mg base)/3 mL nebulizer solution 3 mL 01-09 02:45: 00 01-09 02:01 :00 No 3mL 3 mL, Inhalation , ONCE, 1 dose, On 01/09/24 at 2145, Routine [facility] cefTRIAXone (ROCEPHIN) 1,000 mg in NaCl 0.9% (NS) 100 mL MINI-BAG 01-09 02:30: 00 01-09 03:10 :00 No 1000mg 1,000 mg, IV Piggyback, ONCE, 1 dose, On 01/09/24 at 2130, Administer over 30 Minutes, 100 mL, Reason for Anti-Infec tive: Documented Infection, Documented Infection Site: Respirator y, Duration of Therapy: Once (ED) [facility] famotidine (PEPCID (PF)) injection 20 mg 01-09 01:45: 00 01-09 01:53 :00 No 20mg 20 mg, Slow IV Push, ONCE, 1 dose, On 01/09/24 at 2045, MICHAEL [facility] iopamidol (ISOVUE 370-500 mL) injection 90 mL 01-09 00:45: 00 01-09 00:45 :00 No [id number] 90mL 90 mL, Intravenou s, ONCE, 1 dose, On 01/09/24 at 1945, Routine [facility] atorvastati n 40 mg tablet 01-09 00:00: 00 Yes [id number] 20mg Take 0.5 tablets by mouth at bedtime. [facility] ipratropium -albuteroL 0.5 mg-3 mg(2.5 mg base)/3 mL nebulizer solution 01-09 00:00: 00 Yes [id number] 3mL Inhale 3 mL every 6 (six) hours as needed for Wheezing or Shortness of Breath. [facility] furosemide 40 mg tablet 01-09 00:00: 00 02-19 00:00 :00 No [id number] 40mg Take 1 tablet by mouth every morning and evening. [facility] predniSONE 20 mg tablet 01-09 00:00: 00 01-15 04:59 :00 No [id number] 40mg Take 2 tablets by mouth in the morning for 5 days. [facility] FENTanyl PF (SUBLIMAZE (PF)) injection 50 mcg 01-08 22:45: 00 01-08 23:10 :00 No 50ug 50 mcg, Slow IV Push, ONCE, 1 dose, On 01/09/24 at 1745, STAT [facility] ondansetron (ZOFRAN (PF)) injection 4 mg 01-08 21:30: 00 01-08 21:47 :00 No 4mg 4 mg, Slow IV Push, ONCE, 1 dose, On 01/09/24 at 1630, MICHAEL [facility] aspirin tablet 325 mg 01-08 21:15: 00 01-08 21:47 :00 No 325mg 325 mg, Oral, ONCE, 1 dose, On 01/09/24 at 1615, STAT [facility] spironolact one 25 mg tablet 12-15 00:00: 00 01-15 04:59 :00 No [id number] 25mg Take 1 tablet by mouth in the morning for 30 days. [facility] furosemide (LASIX) tablet 40 mg 12-14 22:00: 00 Yes 40mg 40 mg, Oral, QAM+PM, First dose (after last modificati on) on Thu12/15/23 at 1700, Until Discontinu ed, Routine [facility] spironolact one (ALDACTONE) tablet 25 mg 12-14 14:00: 00 Yes 25mg 25 mg, Oral, DAILY, First dose on Thu12/15/23 at 0900, Until Discontinu ed, Routine [facility] tamsulosin (FLOMAX) capsule 0.4 mg 12-14 14:00: 00 Yes .4mg 0.4 mg, Oral, DAILY, First dose on Thu12/15/23 at 0900, Until Discontinu ed, Routine [facility] metoprolol succinate XL (TOPROL XL) tablet 12.5 mg 12-14 14:00: 00 Yes 12.5mg 12.5 mg, Oral, DAILY, First dose on Thu12/15/23 at 0900, Until Discontinu ed, Routine [facility] lisinopriL (PRINIVIL,Z ESTRIL) tablet 2.5 mg 12-14 14:00: 00 Yes 2.5mg [facility] DULoxetine (CYMBALTA) capsule 30 mg 12-14 14:00: 00 Yes 30mg 30 mg, Oral, DAILY, First dose on Thu12/15/23 at 0900, Until Discontinu ed, Routine [facility] digoxin (LANOXIN) tablet 125 mcg 12-14 14:00: 00 Yes 125ug 125 mcg, Oral, DAILY, First dose on Thu12/15/23 at 0900, Until Discontinu ed [facility] aspirin chewable tablet 81 mg 12-14 14:00: 00 Yes 81mg 81 mg, Oral, DAILY, First dose on Thu12/15/23 at 0900, Until Discontinu ed, Routine [facility] furosemide (LASIX) injection 40 mg 12-14 14:00: 00 12-14 13:49 :00 No 40mg 40 mg, Slow IV Push, ONCE, 1 dose, On Thu12/15/23 at 0900, Routine [facility] MULTIVITAMI N ORAL 12-14 11:08: 41 Yes 1{tbl} Take 1 Tab by mouth daily. [facility] omega-3 fatty acids-vitam in E (FISH OIL) 1,000 mg capsule 12-14 11:08: 41 Yes 1g Take 1 g by mouth daily. [facility] loratadine (CLARITIN LIQUI-GEL) 10 mg capsule 12-14 11:08: 41 Yes Take by mouth daily. [facility] ondansetron 4 mg tablet 12-14 11:08: 41 Yes 4mg Take 1 tablet by mouth every 8 (eight) hours as needed for Nausea and Vomiting (N/V). [facility] methylPREDN ISolone sod succ (SOLU-MEDRO L (PF)) injection 40 mg 12-14 11:00: 00 Yes 40mg 40 mg, Intravenou s, Q6H, First dose (after last modificati on) on Thu12/15/23 at 0600, Until Discontinu ed, Routine [facility] ipratropium -albuteroL (DUONEB) 0.5 mg-3 mg(2.5 mg base)/3 mL nebulizer solution 3 mL 12-14 08:08: 34 Yes 3mL 3 mL, Inhalation , QIDPRN, Starting on Thu12/15/23 at 0308, Until Discontinu ed, Routine, Wheezing, Shortness of Breath, Bronchospa sm, Chest tightness [facility] ipratropium -albuteroL (DUONEB) 0.5 mg-3 mg(2.5 mg base)/3 mL nebulizer solution 3 mL 12-14 03:19: 38 Yes 3mL 3 mL, Inhalation , QIDPRN, Starting on Thu12/14/23 at 2219, Until Discontinu ed, Routine, Wheezing, Shortness of Breath, Bronchospa sm, Chest tightness [facility] Sliding Scale Insulin - Lispro (HumaLOG) 12-14 02:00: 00 Yes [facility] mirtazapine (REMERON) tablet 15 mg 12-14 02:00: 00 Yes 15mg 15 mg, Oral, QHS, First dose on Thu12/14/23 at 2100, Until Discontinu ed, Routine [facility] atorvastati n (LIPITOR) tablet 40 mg 12-14 02:00: 00 Yes 40mg 40 mg, Oral, QHS, First dose on Thu12/14/23 at 2100, Until Discontinu ed, Routine [facility] lacosamide (VIMPAT) tablet 100 mg 12-14 01:00: 00 Yes 100mg 100 mg, Oral, BID, First dose on Thu12/14/23 at 2000, Until Discontinu ed, Routine [facility] gabapentin (NEURONTIN) capsule 100 mg 12-14 01:00: 00 Yes 100mg 100 mg, Oral, TID, First dose on Thu12/14/23 at 2000, Until Discontinu ed, Routine [facility] divalproex (DEPAKOTE) delayed release tablet 1,000 mg 12-14 01:00: 00 Yes 1000mg 1,000 mg, Oral, Q12H, First dose on Thu12/14/23 at 2000, Until Discontinu ed, Routine [facility] cyclobenzap rine (FLEXERIL) tablet 5 mg 12-14 01:00: 00 Yes 5mg 5 mg, Oral, TID, First dose on Thu12/14/23 at 2000, Until Discontinu ed, Routine [facility] apixaban (ELIQUIS) tablet 5 mg 12-14 01:00: 00 02-28 00:59 :00 No 5523 5mg 5 mg, Oral, BID, 152 doses, First dose on Thu12/14/23 at 2000, Last dose on Thu02/28/24 at 0800, Routine, Indication s: DVT/PE [facility] ondansetron (ZOFRAN (PF)) injection 4 mg 12-14 00:15: 00 12-13 23:26 :00 No 4mg 4 mg, Slow IV Push, ONCE, 1 dose, On Thu12/14/23 at 1915, Routine [facility] morpHINE (4 mg/mL) injection 4 mg 12-14 00:15: 00 12-13 23:27 :00 No 4mg 4 mg, Slow IV Push, ONCE, 1 dose, On Thu12/14/23 at 1915, STAT [facility] metFORMIN 500 mg tablet 12-14 00:00: 00 01-14 04:59 :00 No [id number] 500mg Take 1 tablet by mouth in the morning for 30 days. [facility] empaglifloz in (JARDIANCE) 10 mg tablet 12-14 00:00: 00 01-14 04:59 :00 No [id number] 10mg Take 1 tablet by mouth in the morning for 30 days. [facility] furosemide 40 mg tablet 12-14 00:00: 00 01-09 00:00 :00 No [id number] 60mg Take 1.5 tablets by mouth every morning and evening for 60 days. [facility] glucagon (GLUCAGEN DIAGNOSTIC KIT) injection 1 mg 12-13 23:57: 51 Yes 1mg [facility] dextrose 50 % in water (D50W) injection 25 mL 12-13 23:57: 51 Yes 25mL [facility] ondansetron (ZOFRAN (PF)) injection 4 mg 12-13 23:57: 45 Yes 4mg [facility] morpHINE (2 mg/mL) injection 2 mg 12-13 23:57: 39 12-14 23:56 :39 No 2mg 2 mg, Slow IV Push, Q4HPRN, Starting on Thu12/14/23 at 1857, Until Thu12/15/23 at 1856, Routine, Pain (scale 7-10) [facility] HYDROcodone -acetaminop hen (NORCO 5) 5-325 mg tablet 1 tablet 12-13 23:57: 36 12-15 23:56 :36 No 1{tbl} 1 tablet, Oral, Q6HPRN, Starting on Thu12/14/23 at 1857, Until Thu12/16/23 at 1856, Routine, Pain (scale 4-6) [facility] acetaminoph en (TYLENOL) tablet 650 mg 12-13 23:57: 28 Yes 650mg 650 mg, Oral, Q6HPRN, Starting on Thu12/14/23 at 185, Until Discontinu ed, Routine, Pain (scale 1-3), Temp > 38 C [facility] dicyclomine (BENTYL) tablet 20 mg 12-13 23:53: 34 Yes 20mg [facility] methylpredn isolone sod succ (SOLU-MEDRO L) injection 125 mg 12-13 23:00: 00 12-14 08:08 :57 No 125mg 125 mg, Intravenou s, Q6H, First dose on Thu12/14/23 at 1800, Until Discontinu ed, [facility] ipratropium -albuteroL (DUONEB) 0.5 mg-3 mg(2.5 mg base)/3 mL nebulizer solution 3 mL 12-13 21:00: 00 Yes 3mL 3 mL, Inhalation , QID, First dose on Thu12/14/23 at 1600, Until Discontinu ed, Routine [facility] ondansetron (ZOFRAN (PF)) injection 4 mg 12-13 20:45: 00 12-13 19:40 :00 No 4mg 4 mg, Slow IV Push, ONCE, 1 dose, On Thu12/14/23 at 1545, Routine [facility] morpHINE (4 mg/mL) injection 4 mg 12-13 20:45: 00 12-13 19:41 :00 No 4mg 4 mg, Slow IV Push, ONCE, 1 dose, On Thu12/14/23 at 1545, STAT [facility] furosemide (LASIX) tablet 40 mg 12-03 14:00: 00 Yes 40mg 40 mg, Oral, DAILY, First dose (after last modificati on) on Thu12/04/23 at 0900, Until Discontinu ed, Routine [facility] mirtazapine (REMERON) tablet 15 mg 12-03 02:00: 00 Yes 15mg [facility] metoprolol succinate XL 25 mg 24 hr tablet 12-03 00:00: 00 02-19 00:00 :00 No [id number] 12.5mg Take 0.5 tablets by mouth in the morning. [facility] Potassium Bicarb-Citr ic Acid (EFFER-K) effervescen t tablet 40 mEq 12-02 21:06: 00 12-02 23:09 :00 No 40meq 40 mEq, Oral, ONCE, 1 dose, On Thu12/03/23 at 1615, Routine [facility] metoprolol succinate XL (TOPROL XL) tablet 12.5 mg 12-02 16:00: 00 Yes 12.5mg 12.5 mg, Oral, DAILY, First dose on Thu12/03/23 at 1100, Until Discontinu ed, Routine [facility] sennosides (SENOKOT) tablet 8.6 mg 12-02 15:00: 00 Yes 8.6mg 8.6 mg, Oral, DAILY, First dose on Thu12/03/23 at 1000, Until Discontinu ed, Routine [facility] acetaminoph en (TYLENOL) tablet 650 mg 12-02 14:47: 07 Yes 650mg 650 mg, Oral, Q6HPRN, Starting on Thu12/03/23 at 0947, Until Discontinu ed, Routine, Pain (scale 1-3) [facility] ipratropium -albuteroL (DUONEB) 0.5 mg-3 mg(2.5 mg base)/3 mL nebulizer solution 3 mL 12-02 14:45: 00 Yes 3mL 3 mL, Inhalation , QID, First dose (after last modificati on) on Arpita 12/03/23 at 0945, Until Discontinu ed, Routine [facility] tamsulosin (FLOMAX) capsule 0.4 mg 12-02 14:00: 00 Yes .4mg 0.4 mg, Oral, DAILY, First dose on Thu12/03/23 at 0900, Until Discontinu ed, Routine [facility] DULoxetine (CYMBALTA) capsule 30 mg 12-02 14:00: 00 Yes 30mg 30 mg, Oral, DAILY, First dose on Thu12/03/23 at 0900, Until Discontinu ed, Routine [facility] digoxin (LANOXIN) tablet 125 mcg 12-02 14:00: 00 Yes 125ug 125 mcg, Oral, DAILY, First dose on Thu12/03/23 at 0900, Until Discontinu ed [facility] aspirin chewable tablet 81 mg 12-02 14:00: 00 Yes 81mg 81 mg, Oral, DAILY, First dose on Thu12/03/23 at 0900, Until Discontinu ed, Routine [facility] furosemide (LASIX) tablet 40 mg 12-02 14:00: 00 12-02 17:37 :33 No 40mg 40 mg, Oral, QAM+PM, First dose on Thu12/03/23 at 0900, Until Discontinu ed, Routine [facility] lacosamide (VIMPAT) tablet 100 mg 12-02 13:30: 00 Yes 100mg 100 mg, Oral, BID, First dose on Thu12/03/23 at 0830, Until Discontinu ed, Routine [facility] magnesium oxide (MAG-OX 400) tablet 400 mg 12-02 13:26: 00 12-02 14:24 :00 No 400mg 400 mg, Oral, ONCE, 1 dose, On Thu12/03/23 at 0830, Routine [facility] Potassium Bicarb-Citr ic Acid (EFFER-K) effervescen t tablet 40 mEq 12-02 13:19: 00 12-02 14:24 :00 No 40meq 40 mEq, Oral, ONCE, 1 dose, On Thu12/03/23 at 0830, Routine [facility] Sliding Scale Insulin - Lispro (HumaLOG) 12-02 13:00: 00 Yes Subcutaneo us, TID MEALS+HS, First dose on Thu12/03/23 at 0800, Until Discontinu ed, Routine [facility] gabapentin (NEURONTIN) capsule 100 mg 12-02 13:00: 00 Yes 100mg 100 mg, Oral, TID, First dose on Thu12/03/23 at 0800, Until Discontinu ed, Routine [facility] divalproex ER (DEPAKOTE ER) 24 hr tablet 1,000 mg 12-02 13:00: 00 Yes 1000mg 1,000 mg, Oral, Q12H, First dose on Thu12/03/23 at 0800, Until Discontinu ed, Routine [facility] cyclobenzap rine (FLEXERIL) tablet 5 mg 12-02 13:00: 00 Yes 5mg 5 mg, Oral, TID, First dose on Thu12/03/23 at 0800, Until Discontinu ed, Routine [facility] KCL (KLOR-CON M20) tablet 40 mEq 12-02 12:15: 00 12-02 14:24 :00 No 40meq 40 mEq, Oral, ONCE, 1 dose, On Thu12/03/23 at 0715, Routine [facility] KCL (KLOR-CON M20) tablet 20 mEq 12-02 04:00: 00 12-02 04:07 :00 No 20meq 20 mEq, Oral, ONCE, 1 dose, On Thu12/02/23 at 2300, Routine [facility] furosemide (LASIX) injection 40 mg 12-02 03:15: 00 12-02 02:36 :00 No 40mg 40 mg, Slow IV Push, ONCE, 1 dose, On Thu12/02/23 at 2215, Routine [facility] glucagon (GLUCAGEN DIAGNOSTIC KIT) injection 1 mg 12-02 02:54: 39 Yes 1mg 1 mg, Intramuscu lar, PRN, Starting on Thu12/02/23 at 2154, Until Discontinu ed, MICHAEL, Blood Glucose < or = 70 mg/dL and patient is NPO, unable to swallow or has mental changes. [facility] dextrose 50 % in water (D50W) injection 25 mL 12-02 02:54: 38 Yes 25mL 25 mL, Slow IV Push, PRN, Starting on Thu12/02/23 at 2154, Until Discontinu ed, MICHAEL, Blood Glucose < or = 70 mg/dL and patient is NPO, unable to swallow or has mental status changes. [facility] atorvastati n (LIPITOR) tablet 40 mg 12-02 02:00: 00 Yes 40mg 40 mg, Oral, QHS, First dose on Thu12/02/23 at 2100, Until Discontinu ed, Routine [facility] apixaban (ELIQUIS) tablet 5 mg 12-02 01:45: 00 02-28 00:59 :00 No [id number] 5mg 5 mg, Oral, BID, 176 doses, First dose on Thu12/02/23 at 2045, Last dose on Thu02/28/24 at 0800, Routine, Indication s: DVT/PE [facility] albuterol (PROVENTIL) 2.5 mg /3 mL (0.083 %) nebulizer solution 2.5 mg 12-02 01:40: 57 Yes 2.5mg [facility] ondansetron (ZOFRAN (PF)) injection 4 mg 12-02 01:02: 39 Yes 4mg 4 mg, Slow IV Push, Q6HPRN, Nausea and Vomiting (N/V), Starting on Thu12/02/23 at 2001, Doses of ondansetro n 16 mg and above need to be administer ed via IV piggyback. For Dose >=24mg ECG monitoring is advisable. [facility] lisinopriL 2.5 mg tablet 12-02 00:00: 00 02-19 00:00 :00 No [id number] 2.5mg Take 1 tablet by mouth in the morning. [facility] acetaminoph en (OFIRMEV) IV piggyback 1,000 mg 12-01 22:15: 00 12-01 21:51 :00 No 1000mg 1,000 mg, IV Piggyback, at 400 mL/hr Administer over 15 Minutes, ONCE, 1 dose, On Thu12/02/23 at 1715, Routine, Is the patient strict NPO and unable to tolerate oral medication s? Yes [facility] iopamidol (ISOVUE 370-500 mL) injection 85 mL 12-01 19:15: 00 12-01 19:33 :00 No [id number] 85mL 85 mL, Intravenou s, ONCE, 1 dose, On Thu12/02/23 at 1415, Routine [facility] FENTanyl PF (SUBLIMAZE (PF)) injection 25 mcg 12-01 18:30: 00 12-01 19:38 :00 No 25ug 25 mcg, Slow IV Push, ONCE, 1 dose, On Thu12/02/23 at 1330, STAT [facility] NaCl 0.9% (NS) bolus infusion 1,000 mL 12-01 18:15: 00 12-01 21:00 :00 No 1000mL at 999 mL/hr, 1,000 mL, IV Infusion, ONCE, 1 dose, On Thu12/02/23 at 1315, STAT [facility] DULoxetine 30 mg capsule 11-28 00:00: 00 Yes [id number] 30mg Take 1 capsule by mouth in the morning. [facility] digoxin 125 mcg tablet 11-28 00:00: 00 02-19 00:00 :00 No [id number] .125mg Take 1 tablet by mouth in the morning. [facility] tamsulosin 0.4 mg 24 hr capsule 11-28 00:00: 00 02-27 04:59 :00 No [id number] .4mg Take 1 capsule by mouth in the morning for 90 days. [facility] metoprolol succinate XL 50 mg 24 hr tablet 11-28 00:00: 00 12-02 00:00 :00 No [id number] 50mg Take 1 tablet by mouth in the morning. [facility] lisinopriL 5 mg tablet 11-28 00:00: 00 12-02 00:00 :00 No [id number] 5mg Take 1 tablet by mouth in the morning. [facility] spironolact one 25 mg tablet 11-28 00:00: 00 12-02 00:00 :00 No [id number] 50mg Take 2 tablets by mouth in the morning. [facility] metoprolol succinate XL (TOPROL XL) tablet 50 mg 11-27 14:00: 00 Yes 50mg 50 mg, Oral, DAILY, First dose (after last modificati on) on 11/28/23 at 0900, Until Discontinu ed, Routine [facility] KCL (KLOR-CON M20) tablet 40 mEq 11-27 12:30: 00 11-27 13:39 :00 No 40meq 40 mEq, Oral, ONCE, 1 dose, On 11/28/23 at 0730, Routine [facility] potassium chloride in water (KCL) 20 mEq/100 mL RTU IVPB 20 mEq 11-27 11:00: 00 11-27 13:40 :00 No 20meq 20 mEq, IV Piggyback, ONCE, 1 dose, On 11/28/23 at 0600, 100 mL [facility] clonazePAM (KLONOPIN) tablet 0.5 mg 2024-0 5-11 02:45: 00 Yes .5mg 0.5 mg, Oral, QHS, First dose on Thu11/27/23 at 2145, Until Discontinu ed, Routine [facility] lacosamide (VIMPAT) tablet 100 mg 11-27 01:00: 00 Yes 100mg 100 mg, Oral, BID, First dose (after last modificati on) on Thu11/27/23 at 2000, Until Discontinu ed, Routine [facility] gabapentin 100 mg capsule 11-27 00:00: 00 02-19 00:00 :00 No [id number] 100mg Take 1 capsule by mouth in the morning and 1 capsule at noon and 1 capsule in the evening. [facility] divalproex ER 500 mg 24 hr tablet 11-27 00:00: 00 04-03 00:00 :00 No [id number] 1000mg Take 2 tablets by mouth every 12 (twelve) hours. [facility] apixaban 5 mg tablet 11-27 00:00: 00 03-01 04:59 :00 No [id number] Take 2 tablets by mouth 2 (two) times daily for 3 days, THEN 1 tablet 2 (two) times daily for 90 days. Indication s: history of deep vein thrombosis [facility] furosemide 40 mg tablet 11-27 00:00: 00 12-14 00:00 :00 No [id number] 40mg Take 1 tablet by mouth every morning and evening. [facility] lacosamide (VIMPAT) 200 mg in NaCl 0.9% (NS) 50 mL piggyback 11-26 18:45: 00 11-26 23:04 :00 No 200mg 200 mg, IV Piggyback, ONCE, 1 dose, On Thu11/27/23 at 1345, Administer over 30 Minutes, 50 mL [facility] furosemide (LASIX) tablet 40 mg 11-26 14:00: 00 Yes 40mg 40 mg, Oral, QAM+PM, First dose on Thu11/27/23 at 0900, Until Discontinu ed, Routine [facility] divalproex ER (DEPAKOTE ER) 24 hr tablet 1,000 mg 11-26 13:00: 00 Yes 1000mg 1,000 mg, Oral, Q12H, First dose (after last modificati on) on Thu11/27/23 at 0800, Until Discontinu ed, Routine [facility] furosemide (LASIX) injection 40 mg 11-26 01:00: 00 11-26 01:57 :00 No 40mg 40 mg, Slow IV Push, BID, 1 dose, First dose (after last modificati on) on Thu11/26/23 at 2000, Routine [facility] divalproex ER (DEPAKOTE ER) 24 hr tablet 1,250 mg 11-26 01:00: 00 11-26 02:38 :40 No 1250mg 1,250 mg, Oral, Q12H, First dose (after last modificati on) on Thu11/26/23 at 2000, Until Discontinu ed, Routine [facility] cyanocobala min (DODEX) injection 1,000 mcg 11-25 18:30: 00 11-25 19:31 :00 No 1000ug 1,000 mcg, Intramuscu lar, ONCE, 1 dose, On Thu11/26/23 at 1330, Routine [facility] thiamine (VITAMIN B1) 100 mg in NaCl 0.9% (NS) piggyback 11-25 18:00: 00 11-30 13:59 :00 No 100mg IV Piggyback, DAILY, 5 doses, First dose on Thu11/26/23 at 1300, Last dose on Thu11/30/23 at 0900, [facility] digoxin (LANOXIN) tablet 125 mcg 11-25 16:30: 00 Yes 125ug 125 mcg, Oral, DAILY, First dose on Thu11/26/23 at 1130, Until Discontinu ed, [facility] metoprolol succinate XL (TOPROL XL) tablet 25 mg 11-25 16:15: 00 11-27 13:09 :49 No 25mg 25 mg, Oral, DAILY, First dose on Arpita 11/26/23 at 1115, Until Discontinu ed, Routine [facility] apixaban (ELIQUIS) tablet 10 mg 11-25 01:00: [...] Routine, Indication s: DVT/PE [Order 2 End] [facility] furosemide (LASIX) injection 40 mg 11-25 01:00: 00 11-25 16:08 :20 No 40mg 40 mg, Slow IV Push, BID, First dose (after last modificati on) on Thu11/25/23 at 1999, Until Discontinu ed, Routine [facility] spironolact one (ALDACTONE) tablet 12.5 mg 11-24 21:00: 00 Yes 12.5mg 12.5 mg, Oral, DAILY, First dose on Thu11/25/23 at 1600, Until Discontinu ed, Routine [facility] lisinopriL (PRINIVIL,Z ESTRIL) tablet 5 mg 11-24 21:00: 00 Yes 5mg 5 mg, Oral, DAILY, First dose on Thu11/25/23 at 1600, Until Discontinu ed, Routine [facility] apixaban (ELIQUIS) tablet 5 mg 11-24 16:30: 00 11-24 16:18 :00 No 5mg 5 mg, Oral, ONCE, 1 dose, On Thu11/25/23 at 1130, Routine, Indication s: DVT/PE [facility] apixaban (ELIQUIS) tablet 5 mg 11-24 14:00: 00 11-24 15:40 :42 No 5mg 5 mg, Oral, BID, 11 doses, First dose (after last modificati on) on Thu11/25/23 at 0900, Last dose on Thu11/30/23 at 0800, Routine, Indication s: DVT/PE [facility] divalproex ER (DEPAKOTE ER) 24 hr tablet 1,000 mg 11-24 13:00: 00 11-25 17:41 :19 No 1000mg 1,000 mg, Oral, Q12H, First dose (after last modificati on) on Thu11/25/23 at 0800, Until Discontinu ed, Routine [facility] ondansetron (ZOFRAN (PF)) injection 4 mg 11-24 03:45: 00 11-24 02:49 :00 No 4mg 4 mg, Slow IV Push, ONCE, On Thu11/24/23 at 2245, For 1 dose, Doses of ondansetro n 16 mg and above need to be administer ed via IV piggyback. For Dose >=24mg ECG monitoring is advisable. [facility] divalproex (DEPAKOTE) delayed release tablet 500 mg 11-24 03:45: 00 11-24 04:49 :00 No 500mg 500 mg, Oral, ONCE, 1 dose, On Thu11/24/23 at 2245, Routine [facility] nitroglycer in (NITROSTAT) sublingual tablet 0.4 mg 11-24 02:36: 01 Yes .4mg 0.4 mg, Sublingual , Q5MIN PRN, Starting on Thu11/24/23 at 2136, Until Discontinu ed, Routine, Chest pain [facility] nystatin (NILSTAT) 100,000 unit/mL suspension 500,000 Units 11-24 01:15: 00 11-26 20:18 :35 No 5mL 500,000 Units (5 mL), Oral, QID, First dose on Thu11/24/23 at 2015, Until Discontinu ed, Routine [facility] acetaminoph en-codeine (TYLENOL #3) 300-30 mg tablet 1 tablet 11-24 01:07: 37 Yes 1{tbl} 1 tablet, Oral, Q6HPRN, Starting on Thu11/24/23 at 2007, Until Discontinu ed, Routine, Pain (scale 4-6) [facility] iopamidol (ISOVUE 370-500 mL) injection 100 mL 11-23 23:15: 00 11-23 22:15 :00 No [id number] 100mL 100 mL, Intravenou s, ONCE, 1 dose, On Thu11/24/23 at 1815, Routine [facility] milrinone in 5 % dextrose (PRIMACOR) 20 mg/100 mL (200 mcg/mL) infusion RTU 11-23 20:45: 00 11-24 18:50 :54 No .25ug/k g/min 0.25 mcg/kg/min ?94.5 kg (7.0875 mL/hr, rounded to 7.09 mL/hr), IV Infusion, CONTINUOUS , Starting on Thu11/24/23 at 1545, 1. Dose to be adjusted by physician or provider. 2. Notify MD if MAP < 65 mmHG. [facility] polyethylen e glycol 3350 powder 17 g 11-23 19:15: 00 Yes 17g 17 g, Oral, DAILY, First dose on Thu11/24/23 at 1415, Until Discontinu ed, Routine [facility] ipratropium -albuteroL (DUONEB) 0.5 mg-3 mg(2.5 mg base)/3 mL nebulizer solution 3 mL 11-23 19:00: 00 Yes 3mL 3 mL, Inhalation , TID, First dose (after last modificati on) on Thu11/24/23 at 1400, Until Discontinu ed, Routine [facility] ondansetron (ZOFRAN (PF)) injection 4 mg 11-23 17:16: 00 11-23 17:24 :00 No 4mg 4 mg, Slow IV Push, ONCE, On Thu11/24/23 at 1230, For 1 dose, Doses of ondansetro n 16 mg and above need to be administer ed via IV piggyback. For Dose >=24mg ECG monitoring is advisable. [facility] apixaban (ELIQUIS) tablet 10 mg 11-23 15:45: 00 11-24 13:38 :20 No 10mg 10 mg, Oral, BID, 14 doses, First dose on Thu11/24/23 at 1045, Last dose on Thu11/30/23 at 2000, Routine, Indication s: DVT/PE [facility] milrinone in 5 % dextrose (PRIMACOR) 20 mg/100 mL (200 mcg/mL) infusion RTU 11-23 15:45: 00 11-23 20:33 :33 No .125ug/ kg/min 0.125 mcg/kg/min ?94.5 kg (3.5438 mL/hr, rounded to 3.54 mL/hr), IV Infusion, CONTINUOUS , Starting on Thu11/24/23 at 1045, 1. Dose to be adjusted by physician or provider. 2. Notify MD if MAP < 65 mmHG. [facility] HYDROcodone -acetaminop hen (NORCO 5) 5-325 mg tablet 1 tablet 11-23 14:28: 00 11-23 15:37 :00 No 1{tbl} 1 tablet, Oral, ONCE, 1 dose, On Thu11/24/23 at 0930, Routine [facility] hydrALAZINE (APRESOLINE ) tablet 10 mg 11-23 12:30: 00 11-25 13:28 :25 No 10mg 10 mg, Oral, Q8H, First dose on Thu11/24/23 at 0730, Until Discontinu ed, Routine [facility] iohexoL (OMNIPAQUE 180-20 mL) injection 11-22 20:31: 56 11-22 20:32 :10 No ONCE INTRA PROCEDURE, Starting on Thu11/23/23 at 1531, Until Thu11/23/23 at 1532, Routine, CV Intraproce dure [facility] nitroglycer in (TRIDIL) 2 mg in 10 mL D5W for Cardiac Cath 11-22 19:32: 38 11-22 20:32 :10 No ONCE INTRA PROCEDURE, Starting on Thu11/23/23 at 1432, Until Thu11/23/23 at 1532, Routine, CV Intraproce dure [facility] heparin 1,000 unit/mL injection 11-22 19:31: 28 11-22 20:32 :10 No ONCE INTRA PROCEDURE, Starting on Thu11/23/23 at 1431, Until Thu11/23/23 at 1532, Routine, CV Intraproce dure [facility] midazolam (VERSED) injection 11-22 19:24: 54 11-22 20:32 :10 No ONCE INTRA PROCEDURE, Starting on Thu11/23/23 at 1424, Until Thu11/23/23 at 1532, Routine, CV Intraproce dure [facility] FENTanyl PF (SUBLIMAZE (PF)) injection 11-22 19:21: 00 11-22 20:32 :10 No ONCE INTRA PROCEDURE, Starting on Thu11/23/23 at 1421, Until Thu11/23/23 at 1532, Routine, CV Intraproce dure [facility] lidocaine 1% (PF) (XYLOCAINE) injection 11-22 19:20: 00 11-22 20:32 :10 No ONCE INTRA PROCEDURE, Starting on Thu11/23/23 at 1420, Until Thu11/23/23 at 1532, Routine, CV Intraproce dure [facility] furosemide 20 mg tablet 11-22 15:47: 27 11-27 00:00 :00 No 20mg Take 1 tablet by mouth every morning and evening. [facility] milrinone in 5 % dextrose (PRIMACOR) 20 mg/100 mL (200 mcg/mL) infusion RTU 11-22 15:45: 00 11-23 15:32 :54 No .25ug/k g/min 0.25 mcg/kg/min ?94.5 kg (7.0875 mL/hr, rounded to 7.09 mL/hr), IV Infusion, CONTINUOUS , Starting on Thu11/23/23 at 1045, 1. Dose to be adjusted by physician or provider. 2. Notify MD if MAP < 65 mmHG. [facility] DULoxetine (CYMBALTA) capsule 30 mg 11-22 14:00: 00 11-27 00:00 :00 No 30mg 30 mg, Oral, DAILY, First dose on Thu11/23/23 at 0900, Until Discontinu ed, Routine [facility] magnesium oxide (MAG-OX 400) tablet 400 mg 11-22 13:45: 00 11-22 14:00 :00 No 400mg 400 mg, Oral, ONCE, 1 dose, On Thu11/23/23 at 0845, Routine [facility] hydrOXYzine (ATARAX) tablet 50 mg 11-22 13:42: 15 Yes 50mg 50 mg, Oral, Q8HPRN, Starting on Thu11/23/23 at 0842, Until Discontinu ed, Routine, Anxiety [facility] KCL (KLOR-CON M20) tablet 40 mEq 11-22 10:45: 00 11-22 10:20 :00 No 40meq 40 mEq, Oral, ONCE, 1 dose, On Thu11/23/23 at 0545, Routine [facility] mirtazapine (REMERON) tablet 15 mg 11-22 02:00: 00 Yes 15mg 15 mg, Oral, QHS, First dose on Thu11/22/23 at 2100, Until Discontinu ed, [facility]ine [facility] atorvastati [facility] (LIPITOR) tablet 40 mg 11-22 02:00: 00 11-25 16:05 :43 No 40mg 40 mg, Oral, QHS, First dose on Thu11/22/23 at 2100, Until Discontinu ed, Routine [facility] divalproex (DEPAKOTE) delayed release tablet 500 mg 11-22 01:00: 00 11-23 12:27 :34 No 500mg 500 mg, Oral, BID, First dose on 11/22/23 at 2000, Until Discontinu ed, Routine [facility] milrinone in 5 % dextrose (PRIMACOR) 20 mg/100 mL (200 mcg/mL) infusion RTU 11-21 19:30: 00 11-22 15:38 :58 No .125ug/ kg/min 0.125 mcg/kg/min ?94.5 kg (3.5438 mL/hr, rounded to 3.54 mL/hr), IV Infusion, CONTINUOUS , Starting on Thu11/22/23 at 1430, 1. Dose to be adjusted by physician or provider. 2. Notify MD if MAP < 65 mmHG. [facility] diazePAM (VALIUM) injection 2 mg 11-21 19:28: 00 11-21 20:15 :00 No 2mg 2 mg, Intravenou s, ONCE, 1 dose, On 11/22/23 at 1430, Routine [facility] gabapentin (NEURONTIN) capsule 100 mg 11-21 19:00: 00 Yes 100mg 100 mg, Oral, TID, First dose on Thu11/22/23 at 1400, Until Discontinu ed, Routine [facility] furosemide (LASIX) injection 40 mg 11-21 19:00: 00 11-24 18:54 :28 No 40mg 40 mg, Slow IV Push, TID, First dose on Thu11/22/23 at 1400, Until Discontinu ed, Routine [facility] ondansetron (ZOFRAN-ODT ) disintegrat ing tablet 4 mg 11-21 18:45: 00 11-21 18:25 :00 No 4mg 4 mg, Oral, ONCE, 1 dose, On Thu11/22/23 at 1345, Routine [facility] perflutren lipid microsphere s (DEFINITY) injection 2 mL 11-21 16:45: 00 11-21 16:45 :00 No [id number] 2mL 2 mL, IV Push, ONCE, 1 dose, On 11/22/23 at 1145, Routine [facility] furosemide (LASIX) injection 40 mg 11-21 14:15: 00 11-21 18:23 :20 No 40mg 40 mg, Slow IV Push, BID, 2 doses, First dose on 11/22/23 at 0915, Last dose on 11/22/23 at 2000, Routine [facility] losartan (COZAAR) tablet 25 mg 11-21 14:15: 00 11-21 20:14 :04 No 25mg 25 mg, Oral, DAILY, First dose on 11/22/23 at 0915, Until Discontinu ed, Routine [facility] tamsulosin (FLOMAX) capsule 0.4 mg 11-21 14:00: 00 Yes .4mg 0.4 mg, Oral, DAILY, First dose on 11/22/23 at 0900, Until Discontinu ed, Routine [facility] pantoprazol e (PROTONIX) EC tablet 40 mg 11-21 14:00: 00 Yes 40mg 40 mg, Oral, DAILY, First dose on 11/22/23 at 0900, Until Discontinu ed, Routine [facility] aspirin [...] on Arpita 11/26/23 at 0900, Routine [facility] iopamidol (ISOVUE 370-500 mL) injection 80 mL 11-21 14:00: 00 11-21 14:00 :00 No [id number] 80mL 80 mL, Intravenou s, ONCE, 1 dose, On Thu11/22/23 at 0900, Routine [facility] Sliding Scale Insulin - Lispro (HumaLOG) 11-21 13:00: 00 Yes Subcutaneo us, TID MEALS+HS, First dose on Thu11/22/23 at 0800, Until Discontinu ed, Routine [facility] divalproex ER (DEPAKOTE ER) 24 hr tablet 500 mg 11-21 13:00: 00 11-24 02:43 :24 No 500mg 500 mg, Oral, Q12H, First dose on Thu11/22/23 at 0800, Until Discontinu ed, Routine [facility] ipratropium -albuteroL (DUONEB) 0.5 mg-3 mg(2.5 mg base)/3 mL nebulizer solution 3 mL 11-21 09:00: 00 11-23 15:56 :58 No 3mL 3 mL, Inhalation , Q4H, First dose on Thu11/22/23 at 0400, Until Discontinu ed, Routine [facility] furosemide (LASIX) injection 40 mg 11-21 07:45: 00 11-21 07:15 :00 No 40mg 40 mg, Slow IV Push, ONCE, 1 dose, On Thu11/22/23 at 0245, Routine [facility] sodium chloride 7% (HYPER-IRVIN) nebulizer solution 4 mL 11-21 07:00: 00 11-23 14:32 :09 No 4mL 4 mL, Inhalation , DAILY, First dose on Thu11/22/23 at 0200, Until Discontinu ed, Routine [facility] morpHINE (2 mg/mL) injection 2 mg 11-21 06:52: 11 Yes 2mg 2 mg, Slow IV Push, Q4HPRN, Starting on Thu11/22/23 at 0152, Until Discontinu ed, Routine, Pain (scale 7-10) [facility] heparin 25,000 Units/250 mL (Premixed [...] ant therapy. Range, Dosing and Testing: FOR [facility], [facility], AND [facility] ONLY - aPTT < 35: [...] ADJUST INITIAL BOLUS OR INITIAL INFUSION RATE. [facility] heparin (1,000 unit/mL, 10 mL vial) for Rebolusing 11-21 06:43: 39 11-23 15:32 :54 No 3000U FOR REBOLUSING , Starting on Thu11/22/23 at 0143, Until 11/24/23 at 1032, Routine, Dosing based on aPPT testing parameters (refer to continuous heparin drip order). [facility] glucagon (GLUCAGEN DIAGNOSTIC KIT) injection 1 mg 11-21 06:36: 57 Yes 1mg [facility] dextrose 50 % in water (D50W) injection 25 mL 11-21 06:36: 57 Yes 25mL [facility] acetaminoph en (TYLENOL) tablet 650 mg 11-21 06:36: 44 Yes 650mg 650 mg, Oral, Q6HPRN, Starting on 11/22/23 at 0136, Until Discontinu ed, Routine, Pain (scale 1-3) [facility] ondansetron (ZOFRAN (PF)) injection 4 mg 11-21 04:45: 00 11-21 03:46 :00 No 4mg 4 mg, Slow IV Push, ONCE, 1 dose, On 11/21/23 at 2345, MICHAEL [facility] acetaminoph en (TYLENOL) tablet 975 mg 11-21 04:45: 00 11-21 03:44 :00 No 975mg 975 mg, Oral, ONCE, 1 dose, On 11/21/23 at 2345, MICHAEL [facility] HEPARIN SODIUM (PORCINE) 1,000 UNIT/ML BOLUS ACS ORDER SET 11-21 04:15: 00 11-21 04:33 :00 No 4000U 4,000 Units, IV Push, ONCE, 1 dose, On 11/21/23 at 2315, MICHAEL [facility] morpHINE (4 mg/mL) injection 4 mg 11-21 04:15: 00 11-21 04:27 :00 No 4mg 4 mg, Slow IV Push, ONCE, 1 dose, On 11/21/23 at 2315, STAT [facility] methylpredn isolone sod succ (SOLU-MEDRO L) injection 125 mg 11-21 04:15: 00 11-21 03:24 :00 No 125mg 125 mg, Slow IV Push, ONCE NOW, 1 dose, On 11/21/23 at 2315, [facility] heparin 25,000 Units/250 mL (Premixed [...] therapy. Range, Dosing and Testing: FOR [facility], AND [facility] ONLY - aPTT < 35: [...] once therapeuti c levels are reached. FOR [facility] ONLY - aPTT < 40: [...] INITIAL BOLUS OR INITIAL INFUSION RATE. [facility] ipratropium -albuteroL (DUONEB) 0.5 mg-3 mg(2.5 mg base)/3 mL nebulizer solution 3 mL 11-21 04:00: 00 11-21 02:51 :00 No 3mL 3 mL, Inhalation , ONCE, 1 dose, On 11/21/23 at 2300, MICHAEL [facility] ipratropium -albuteroL (DUONEB) 0.5 mg-3 mg(2.5 mg base)/3 mL nebulizer solution 3 mL 11-21 03:30: 00 11-21 02:37 :00 No 3mL 3 mL, Inhalation , ONCE, 1 dose, On 11/21/23 at 2230, MICHAEL [facility] NaCl 0.9% (NS) bolus infusion 500 mL 11-21 03:15: 00 11-21 04:14 :00 No 500mL at 999 mL/hr, 500 mL, IV Infusion, ONCE, 1 dose, On 11/21/23 at 2215, STAT [facility] levoFLOXaci n 750 MG oral Tablet levoFLOXaci n 750 MG oral Tablet 11-14 00:00: 00 02-10 00:00 :00 No 750mg 1 tablet (750 mg total). Cynthia gonzalez Roflumilast 500 MCG oral Tablet Roflumilast 500 MCG oral Tablet 11-13 00:00: 00 02-10 00:00 :00 No Take by mouth. Cynthia gonzalez Lactulose 10 g oral Pack Lactulose 10 g oral Pack 11-01 00:00: 00 02-10 00:00 :00 No Take by mouth. Cynthia gonzalez mirtazapine 15 mg tablet 14 00:00: 00 Yes 15mg Take 1 tablet by mouth at bedtime. [facility] Aspirin 81 MG oral Tablet Delayed Response Aspirin 81 MG oral Tablet Delayed Response 14 00:00: 00 Yes 81mg QD Take 1 tablet (81 mg total) by mouth daily. Cynthia gonzalez Lactulose 10 GM/15ML oral Solution Lactulose 10 GM/15ML oral Solution -14 00:00: 00 02-10 00:00 :00 No 20g Q.[id number] 3D Take 30 mL (20 g total) by mouth 3 times daily. Cynthia gonzalez Cyclobenzap rine HCl 10 MG oral Tablet Cyclobenzap rine HCl 10 MG oral Tablet -14 00:00: 00 02-10 00:00 :00 No 10mg Q.[id number] 3D Take 1 tablet (10 mg total) by mouth 3 times daily as needed for muscle spasms. Cynthia gonzalez Atorvastati n Calcium 20 MG oral Tablet Atorvastati n Calcium 20 MG oral Tablet 09-30 00:00: 00 02-10 00:00 :00 No 20mg QD Take 1 tablet (20 mg total) by mouth daily. Cynthia gonzalez Furosemide 40 MG oral Tablet Furosemide 40 MG oral Tablet 09-30 00:00: 00 02-10 00:00 :00 No 40mg Q.5D Take 1 tablet (40 mg total) by mouth 2 times daily. Cynthia gonzalez Metformin HCl 500 MG oral Tablet 09-29 14:28: 11 Yes 500mg Take 1 tablet (500 mg total) by mouth daily (with breakfast) . Cynthia gonzalez Ibuprofen (MOTRIN) 200 MG oral Tablet 09-29 14:27: 32 09-29 00:00 :00 No 200mg Q.[id number] 3D Take 1 tablet (200 mg total) by mouth every 8 hours as needed for pain. Cynthia gonzalez Acetaminoph en-Codeine (TYLENOL/CO DEINE #3) 300-30 MG oral Tablet Acetaminoph en-Codeine (TYLENOL/CO DEINE #3) 300-30 MG oral Tablet 09-29 00:00: 00 Yes [id number] 1{tbl} Q.25D Take 1 tablet by mouth every 6 hours as needed for pain. Cynthia gonzalez Fluticasone -Umeclidin- Vilant (Trelegy Ellipta) 100-62.5-25 MCG/ACT inhalation AEROSOL POWDER, BREATH ACTIVATED Fluticasone -Umeclidin- Vilant (Trelegy Ellipta) 100-62.5-25 MCG/ACT inhalation AEROSOL POWDER, BREATH ACTIVATED 09-29 00:00: 00 02-10 00:00 :00 No [id number] 1{puff} QD Inhale 1 puff into the lungs daily. Cynthia gonzalez Carvedilol 12.5 MG oral Tablet Carvedilol 12.5 MG oral Tablet 09-29 00:00: 00 02-10 00:00 :00 No [id number] 12.5mg Take 1 tablet (12.5 mg total) by mouth in the morning and 1 tablet (12.5 mg total) in the evening. Take with meals. Cynthia gonzalez Duloxetine HCl [address] Particles Duloxetine HCl [address] Particles 09-29 00:00: 00 02-10 00:00 :00 No [id number] 20mg QD Take 1 capsule (20 mg total) by mouth daily. Cynthia gonzalez Clonazepam 1 MG oral Tablet Clonazepam 1 MG oral Tablet 09-29 00:00: 00 02-10 00:00 :00 No [id number] 1mg QD Take 1 tablet (1 mg total) by mouth nightly as needed for anxiety. Cynthia gonzalez spironolact one 25 mg tablet 09-29 00:00: 00 11-27 00:00 :00 No 25mg Take 1 tablet by mouth in the morning and 1 tablet in the evening. [facility] metFORMIN 500 mg tablet 09-28 00:00: 00 12-14 00:00 :00 No 500mg Take 1 tablet by mouth in the morning. [facility] Carvedilol 12.5 MG oral Tablet [...] the evening. Take with meals. Cynthia gonzaelz Arformotero l Tartrate 15 MCG/2ML inhalation Inhalant Solution Arformotero l Tartrate 15 MCG/2ML inhalation Inhalant Solution 09-21 00:00: 00 02-10 00:00 :00 No 15ug Q.5D Inhale 2 mL (15 mcg total) into the lungs 2 times daily. Cynthia gonzalez Ipratropium (ATROVENT) 0.02 % inhalation Solution 09-21 00:00: 00 09-29 00:00 :00 No 500ug Take 2.5 mL (500 mcg total) by nebulizati on once. Cytnhia gonzalez Varenicline Tartrate 1 MG oral Tablet [...] MG oral Tablet 09-11 00:00: 00 Yes [id number] 15mg QD Take 1 tablet (15 mg total) by mouth nightly as needed. Cynthia gonzalez Acetaminoph en-Codeine (TYLENOL/CO DEINE #3) 300-30 MG oral Tablet 09-11 00:00: 00 09-29 00:00 :00 No [id number] 1{tbl} Q.25D Take 1 tablet by mouth every 6 hours as needed for pain. Cynthia gonzalez DULoxetine (CYMBALTA) 60 MG capsule 09-09 00:00: 00 10-08 23:59 :00 No 60mg QD Take 1 capsule (60 mg total) by mouth daily for 30 days. [facility] varenicline (CHANTIX) 1 mg tablet 09-08 10:51: 03 Yes 1mg Q.5D Take 1 tablet (1 mg total) by mouth 2 (two) times daily Give with meals and with a full glass of water.. [facility] atorvastati n (LIPITOR) 20 MG tablet 09-08 10:51: 03 Yes 20mg QD Take 1 tablet (20 mg total) by mouth daily. [facility] Cyanocobala min (Vitamin B-12) 1000 MCG oral Tablet 09-08 00:00: 00 10-08 04:59 :00 No 1000ug Take 1 tablet (1,000 mcg total) by mouth daily. Cynthia gonzalez lidocaine (LIDODERM) 4 % patch 09-08 00:00: 00 10-07 23:59 :00 No 3{patch } Q24H Place 3 patches onto the skin daily for 30 days. [facility] metoprolol succinate (TOPROL-XL) 25 MG 24 hr tablet 09-07 16:47: 05 09-07 00:00 :00 No 25mg QD Take 1 tablet (25 mg total) by mouth daily. [facility] albuterol HFA (VENTOLIN HFA) 90 mcg/actuati on inhaler 09-07 16:47: 05 09-07 00:00 :00 No 1{puff} Inhale 1 puff by mouth via inhaler every 6 (six) hours as needed for Wheezing. [facility] fluticasone -umeclidin- vilanter (Trelegy Ellipta) 200-62.5-25 mcg DsDv 09-07 16:47: 05 09-07 00:00 :00 No QD Inhale by mouth via inhaler daily. [facility] Albuterol HFA 108 (90 Base) MCG/ACT IN AERS Albuterol HFA 108 (90 Base) MCG/ACT IN AERS 09-07 00:00: 00 Yes 1{puff} Q.25D Inhale 1 puff into [...] total) by mouth daily for 30 days. [facility] polyethylen e glycol (GLYCOLAX) 17 gram packet 09-07 00:00: 00 10-06 23:59 :00 No 17g Q.5D Take 17 g by mouth 2 (two) times daily for 30 days. [facility] gabapentin (NEURONTIN) 400 MG capsule 09-07 00:00: 00 10-06 23:59 :00 No 400mg Q.[id number] 3D Take 1 capsule (400 mg total) by mouth 3 (three) times daily for 30 days. [facility] furosemide (LASIX) 20 MG tablet 09-07 00:00: 00 10-06 23:59 :00 No 20mg QD Take 1 tablet (20 mg total) by mouth daily for 30 days. [facility] fluticasone -umeclidin- vilanter (Trelegy Ellipta) 200-62.5-25 mcg DsDv 09-07 00:00: 00 10-06 23:59 :00 No 1{inhal ation} QD Inhale 1 Inhalation by mouth via inhaler daily for 30 days. [facility] metoprolol succinate (TOPROL-XL) 25 MG 24 hr tablet 09-07 00:00: 00 10-06 23:59 :00 No 25mg QD Take 1 tablet (25 mg total) by mouth daily for 30 days. [facility] lacosamide (VIMPAT) 100 mg in NaCl 0.9% (NS) 50 mL piggyback 08-12 21:15: 00 08-12 21:23 :00 No 100mg 100 mg, IV Piggyback, ONCE, 1 dose, On Thu08/12/23 at 1515, Administer over 30 Minutes, 50 mL
Facu lty member approving Restricted medication : MJ BRYAN [facility] Dicyclomine HCl 20 MG oral [...] total) by mouth daily for 5 days. [facility] varenicline (CHANTIX) 1 mg tablet 2022-07 19:45: 32 Yes 1mg Q.5D Take 1 tablet (1 mg total) by mouth 2 (two) times daily Give with meals and with a full glass of water.. [facility] atorvastati n (LIPITOR) 20 MG tablet 2022-07 19:45: 32 Yes 20mg QD Take 1 tablet (20 mg total) by mouth daily. [facility] metoprolol succinate (TOPROL-XL) 25 MG 24 hr tablet 2022-07 19:45: 32 09-07 00:00 :00 No 25mg QD Take 1 tablet (25 mg total) by mouth daily. [facility] albuterol HFA (VENTOLIN HFA) 90 mcg/actuati on inhaler 2022-07 19:45: 32 09-07 00:00 :00 No 1{puff} Inhale 1 puff by mouth via inhaler every 6 (six) hours as needed for Wheezing. [facility] fluticasone -umeclidin- vilanter (Trelegy Ellipta) 200-62.5-25 mcg DsDv 2022-07 19:45: 32 09-07 00:00 :00 No QD Inhale by mouth via inhaler daily. [facility] acetaminoph en-codeine (TYLENOL #3) 300-30 mg per tablet 2022-07 18:02: 00 06-16 00:00 :00 No 1{tbl} Take 1 tablet by mouth every 4 (four) hours as needed for Pain. [facility] DULoxetine (CYMBALTA) 30 MG capsule 2022-07 00:00: 00 09-08 00:00 :00 No 30mg QD Take 1 capsule (30 mg total) by mouth daily for 90 days. [facility] metroNIDAZO LE (FLAGYL) 500 MG tablet 2022-07 00:00: 00 07-04 23:59 :00 No 500mg Take 1 tablet (500 mg total) by mouth every 8 (eight) hours for 18 days. [facility] ciprofloxac in HCl (CIPRO) 500 MG tablet 2022-07 00:00: 00 07-04 23:59 :00 No 500mg Q.5D Take 1 tablet (500 mg total) by mouth 2 (two) times daily for 18 days. [facility] cyclobenzap rine (FLEXERIL) 10 MG tablet 2022-07 00:00: 00 06-26 23:59 :00 No 10mg Q.[id number] 3D Take 1 tablet (10 mg total) by mouth 3 (three) times daily for 10 days. [facility] oxyCODONE (OXY-IR) 10 mg tablet 2022-07 00:00: 00 06-26 23:59 :00 No 10mg Take 1 tablet (10 mg total) by mouth every 8 (eight) hours as needed for up to 10 days. Max Daily Amount: 30 mg [facility] nystatin (MYCOSTATIN ) 100,000 unit/mL suspension 2022-07 00:00: 00 06-21 23:59 :00 No [id number] Q.25D Take 5 mLs (500,000 Units total) by mouth 4 (four) times daily for 5 days. [facility] dexAMETHaso ne (DECADRON) 2 MG tablet 2022-07 00:00: 00 06-08 23:59 :00 No 1mg Take 0.5 tablets (1 mg total) by mouth 2 (two) times daily with breakfast and dinner for 2 days. [facility] metoprolol succinate (TOPROL-XL) 25 MG 24 hr tablet 2022-07 17:44: 21 Yes 25mg QD Take 1 tablet (25 mg total) by mouth daily. [facility] varenicline (CHANTIX) 1 mg tablet 2022-07 17:44: 21 Yes 1mg Q.5D Take 1 tablet (1 mg total) by mouth 2 (two) times daily Give with meals and with a full glass of water.. [facility] albuterol HFA (VENTOLIN HFA) 90 mcg/actuati on inhaler 2022-07 17:44: 21 Yes 1{puff} Inhale 1 puff by mouth via inhaler every 6 (six) hours as needed for Wheezing. [facility] fluticasone -umeclidin- vilanter (Trelegy Ellipta) 200-62.5-25 mcg DsDv 2022-07 17:44: 21 Yes QD Inhale by mouth via inhaler daily. [facility] atorvastati n (LIPITOR) 20 MG tablet 2022-07 17:44: 21 Yes 20mg QD Take 1 tablet (20 mg total) by mouth daily. [facility] acetaminoph en-codeine (TYLENOL #3) 300-30 mg per tablet 2022-07 17:44: 21 Yes 1{tbl} Take 1 tablet by mouth every 4 (four) hours as needed for Pain. [facility] Naloxone (NARCAN) 4 MG/0.1ML nasal Liquid 2022-07 00:00: 00 Yes 4mg 0.1 mL (4 mg total) as needed. Cynthia gonzalez senna (SENOKOT) 8.6 mg tablet 2022-07 00:00: 00 06-18 23:59 :00 No 17.2mg Q.5D Take 2 tablets (17.2 mg total) by mouth 2 (two) times daily for 14 days. [facility] cyclobenzap rine (FLEXERIL) 10 MG tablet 2022-07 00:00: 00 06-16 00:00 :00 No 10mg Q.[id number] 3D Take 1 tablet (10 mg total) by mouth 3 (three) times daily for 10 days. [facility] methocarbam oL (ROBAXIN) 500 MG tablet 2022-07 00:00: 00 06-16 00:00 :00 No 500mg Q.25D Take 1 tablet (500 mg total) by mouth 4 (four) times daily for 10 days. [facility] lactulose (CHRONULAC) 20 gram/30 mL solution 2022-07 00:00: 00 06-11 23:59 :00 No 20g Q.[id number] 3D Take 30 mLs (20 g total) by mouth 3 (three) times daily for 7 days. [facility] ondansetron (ZOFRAN-ODT ) 4 MG disintegrat ing tablet 2022-07 00:00: 00 06-11 23:59 :00 No 4mg Take 1 tablet (4 mg total) by mouth every 6 (six) hours as needed for up to 7 days. [facility] metoprolol succinate (TOPROL-XL) 25 MG 24 hr tablet 2022-07 15:23: 22 Yes 25mg QD Take 1 tablet (25 mg total) by mouth daily. [facility] varenicline (CHANTIX) 1 mg tablet 2022-07 15:23: 22 Yes 1mg Q.5D Take 1 tablet (1 mg total) by mouth 2 (two) times daily Give with meals and with a full glass of water.. [facility] albuterol HFA (VENTOLIN HFA) 90 mcg/actuati on inhaler 2022-07 15:23: 22 Yes 1{puff} Inhale 1 puff by mouth via inhaler every 6 (six) hours as needed for Wheezing. [facility] fluticasone -umeclidin- vilanter (Trelegy Ellipta) 200-62.5-25 mcg DsDv 2022-07 15:23: 22 Yes QD Inhale by mouth via inhaler daily. [facility] atorvastati n (LIPITOR) 20 MG tablet 2022-07 15:23: 22 Yes 20mg QD Take 1 tablet (20 mg total) by mouth daily. [facility] acetaminoph en-codeine (TYLENOL #3) 300-30 mg per tablet 2022-07 15:23: 22 Yes 1{tbl} Take 1 tablet by mouth every 4 (four) hours as needed for Pain. [facility] acetaminoph en-codeine (TYLENOL #3) 300-30 mg per tablet 2022-07 09:42: 02 Yes 1{tbl} Take 1 tablet by mouth every 4 (four) hours as needed for Pain. Max Daily Amount: 6 tablets [facility] varenicline (CHANTIX) 1 mg tablet 2022-07 09:40: 04 Yes 1mg Q.5D Take 1 tablet (1 mg total) by mouth 2 (two) times daily Give with meals and with a full glass of water.. [facility] albuterol HFA (VENTOLIN HFA) 90 mcg/actuati on inhaler 2022-07 09:40: 04 Yes 1{puff} Inhale 1 puff by mouth via inhaler every 6 (six) hours as needed for Wheezing. [facility] fluticasone -umeclidin- vilanter (Trelegy Ellipta) 200-62.5-25 mcg DsDv 2022-07 09:40: 04 Yes QD Inhale by mouth via inhaler daily. [facility] atorvastati n (LIPITOR) 20 MG tablet 2022-07 09:40: 04 Yes 20mg QD Take 1 tablet (20 mg total) by mouth daily. [facility] metoprolol succinate (TOPROL-XL) 25 MG 24 hr tablet 2022-07 09:13: 28 Yes 25mg QD Take 1 tablet (25 mg total) by mouth daily. [facility] Atorvastati n Calcium 20 MG oral Tablet 2022-07 00:00: 00 Yes 20mg Take 1 tablet (20 mg total) by mouth daily. Cynthia gonzalez metoprolol succinate XL 25 mg 24 hr tablet 2022-07 00:00: 00 11-27 00:00 :00 No 25mg Take 1 tablet by mouth every morning. [facility] Nitroglycer in 0.4 MG sublingual SL Tab Nitroglycer in 0.4 MG sublingual SL Tab [...] tablet (20 mg total) by mouth daily. [facility] aspirin 81 MG EC tablet 04-03 00:00: 00 07-02 23:59 :00 No 81mg QD Take 1 tablet (81 mg total) by mouth daily for 90 days. [facility] divalproex (DEPAKOTE) 500 MG EC tablet 04-03 00:00: 00 07-02 23:59 :00 No 500mg Q.5D Take 1 tablet (500 mg total) by mouth 2 (two) times daily for 90 days. [facility] lisinopriL (PRINIVIL,Z ESTRIL) 5 MG tablet 04-03 00:00: 00 05-28 00:00 :00 No 5mg QD Take 1 tablet (5 mg total) by mouth daily. [facility] clonazePAM (KlonoPIN) 0.5 MG tablet 04-03 00:00: 00 05-03 23:59 :00 No .25mg Take 0.5 tablets (0.25 mg total) by mouth 2 (two) times daily as needed for Anxiety for up to 30 days. Max Daily Amount: 0.5 mg [facility] HYDROcodone -acetaminop hen (NORCO 10-325) 10-325 mg per tablet 04-03 00:00: 00 04-13 23:59 :00 No 1{tbl} Take 1 tablet by mouth every 6 (six) hours as needed for up to 10 days. Max Daily Amount: 4 tablets [facility] methocarbam oL (ROBAXIN) 500 MG tablet 04-03 00:00: 00 04-13 23:59 :00 No 500mg Q.25D Take 1 tablet (500 mg total) by mouth 4 (four) times daily for 10 days. [facility] gabapentin (NEURONTIN) 300 MG capsule 04-02 00:00: 00 04-03 00:00 :00 No 300mg Q.[id number] 3D Take 1 capsule (300 mg total) by mouth 3 (three) times daily for 90 days. [facility] divalproex (DEPAKOTE) 500 MG EC tablet 04-02 00:00: 00 04-03 00:00 :00 No 500mg Q.5D Take 1 tablet (500 mg total) by mouth 2 (two) times daily for 90 days. [facility] clonazePAM (KlonoPIN) 0.5 MG tablet 04-02 00:00: 00 04-03 00:00 :00 No .25mg Take 0.5 tablets (0.25 mg total) by mouth 2 (two) times daily as needed for Anxiety for up to 30 days. Max Daily Amount: 0.5 mg [facility] HYDROcodone -acetaminop hen (NORCO 10-325) 10-325 mg per tablet 04-02 00:00: 00 04-03 00:00 :00 No 1{tbl} Take 1 tablet by mouth every 6 (six) hours as needed for up to 10 days. Max Daily Amount: 4 tablets [facility] methocarbam oL (ROBAXIN) 500 MG tablet 04-02 00:00: 00 04-03 00:00 :00 No 500mg Q.25D Take 1 tablet (500 mg total) by mouth 4 (four) times daily for 10 days. [facility] Metronidazo le 500 MG oral [...] morning and 1 tablet in the evening. [facility] Divalproex Sodium 500 MG oral Tablet Delayed Response 01-14 00:00: 00 Yes 250mg 250 mg. Cynthia Garcia - Externa raul lacosamide (VIMPAT) 200 mg in NaCl 0.9% (NS) 50 mL piggyback 12-11 19:45: 00 12-11 19:57 :00 No 200mg 200 mg, IV Piggyback, ONCE, 1 dose, On Arpita 12/11/22 at 1445, Administer over 30 Minutes, 50 mL
Facu lty member approving Restricted medication : Alfonso ALVARADO [facility] ketorolac (TORADOL) injection 15 mg 12-11 18:15: 00 12-11 17:25 :00 No 15mg 15 mg, Slow IV Push, ONCE, 1 dose, [facility] 12[facility]11/22 [facility] 1315[facility]UE 370-500 mL) injection 80 mL 12-11 16:30: 00 12-11 16:27 :00 No [id number] 80mL 80 mL, Intravenou s, ONCE, 1 dose, On Arpita 12/11/22 at 1130, Routine [facility] nitroglycer in (NITROL) 2 % ointment 0.5 Inch 12-11 15:30: 00 12-11 14:31 :00 No .5[in_u s] 0.5 Inch, Transderma l (Apply To Skin), ONCE, 1 dose, On Arpita 12/11/22 at 1030, [facility] aspirin chewable tablet 324 mg 12-11 15:30: 00 12-11 14:30 :00 No 324mg 324 mg, Oral, ONCE, 1 dose, On Arpita 12/11/22 at 1030, Routine [facility] ondansetron (ZOFRAN (PF)) injection 4 mg 12-11 15:30: 00 12-11 14:29 :00 No 4mg 4 mg, Slow IV Push, ONCE, 1 dose, On Thu12/11/22 at 1030, [facility] LORazepam (ATIVAN) injection 1 mg 12-11 15:00: 00 12-11 14:57 :00 No 1mg 1 mg, Slow IV Push, ONCE, 1 dose, On Thu12/11/22 at 1000, STAT [facility] Lacosamide (VIMPAT) 100 mg tablet 12-11 00:00: 00 02-19 00:00 :00 No [id number] 100mg Take 1 tablet by mouth in the morning and 1 tablet in the evening. [facility] acetaminoph en-codeine (TYLENOL #3) 300-30 mg tablet 1 tablet 11-18 05:30: 00 11-18 05:30 :00 No 1{tbl} 1 tablet, Oral, ONCE, 1 dose, On Thu11/18/22 at 0030, [facility] methocarbam oL (ROBAXIN) tablet 1,000 mg 11-18 05:30: 00 11-18 05:30 :00 No 1000mg 1,000 mg, Oral, ONCE, 1 dose, On Thu11/18/22 at 0030, [facility] ondansetron (ZOFRAN (PF)) injection 4 mg 11-18 04:45: 00 11-18 03:38 :00 No 4mg 4 mg, Slow IV Push, ONCE, 1 dose, On Thu11/17/22 at 2345, [facility] morpHINE (4 mg/mL) injection 4 mg 11-18 03:45: 00 11-18 03:38 :00 No 4mg 4 mg, Slow IV Push, ONCE, 1 dose, On Thu11/17/22 at 2245, Routine [facility] methocarbam oL (ROBAXIN) injection 1,000 mg 11-18 00:30: 00 11-17 23:47 :00 No 1000mg 1,000 mg, Intravenou s, ONCE, 1 dose, On Thu11/17/22 at 1930, MICHAEL [facility] methocarbam oL 500 mg tablet 11-18 00:00: 00 12-02 00:00 :00 No [id number] 1000mg Take 2 tablets by mouth 4 (four) times daily as needed for Pain (scale 7-10). [facility] acetaminoph en-codeine 300-60 mg tablet 11-18 00:00: 00 11-26 04:59 :00 No [id number] 1{tbl} Take 1 tablet by mouth every 6 (six) hours as needed for Pain for up to 7 days. Indication s: acute pain [facility] ketorolac (TORADOL) injection 15 mg 11-18 00:00: 00 11-17 23:08 :00 No 15mg 15 mg, Slow IV Push, ONCE, 1 dose, On Thu11/17/22 at 1900, Routine [facility] morpHINE (4 mg/mL) injection 4 mg 11-17 23:45: 00 11-17 23:49 :00 No 4mg 4 mg, Slow IV Push, ONCE, 1 dose, On Thu11/17/22 at 1845, Routine [facility] ondansetron (ZOFRAN (PF)) injection 4 mg 11-17 23:15: 00 11-17 23:06 :00 No 4mg 4 mg, Slow IV Push, ONCE, 1 dose, On Thu11/17/22 at 1815, MICHAEL [facility] lisinopriL (PRINIVIL,Z ESTRIL) tablet 10 mg 08-02 15:00: 00 Yes 10mg 10 mg, Oral, DAILY, First dose on 08/02/22 at 0900, Until Discontinu ed, Routine [facility] predniSONE (DELTASONE) tablet 40 mg 08-02 15:00: 08-07 14:59 :00 No 40mg 40 mg, Oral, DAILY, 5 doses, First dose on Thu08/02/22 at 0900, Last dose on Thu08/06/22 at 0900, Routine [facility] morpHINE (2 mg/mL) injection 2 mg 08-02 03:29: 15 Yes 2mg 2 mg, Slow IV Push, Q4HPRN, Starting on Thu08/01/22 at 2129, Until Discontinu ed, Routine, Pain (scale 7-10) [facility] levETIRAcet am (KEPPRA) in NACL (ISO-OS) 1,000 mg/100 mL RTU 08-02 00:00: 00 Yes 1000mg 1,000 mg, IV Piggyback, Q12H, First dose on Thu08/01/22 at 1800, Until Discontinu ed, Administer over 15 Minutes, 100 mL [facility] MULTIVITAMI N ORAL 08-01 23:49: 34 Yes 1{tbl} Take 1 Tab by mouth daily. [facility] omega-3 fatty acids-vitam in E (FISH OIL) 1,000 mg capsule 08-01 23:49: 34 Yes 1g Take 1 g by mouth daily. [facility] loratadine (CLARITIN LIQUI-GEL) 10 mg capsule 08-01 23:49: 34 Yes Take by mouth daily. [facility] ondansetron 4 mg tablet 08-01 23:49: 34 Yes 4mg Take 1 tablet by mouth every 8 (eight) hours as needed for Nausea and Vomiting (N/V). [facility] omega-3 fatty acids-vitam in E (FISH OIL) 1,000 mg capsule 08-01 23:49: 34 Yes 1g Take 1 g by mouth daily. [facility] pantoprazol e 40 mg EC tablet 08-01 23:49: 34 11-27 00:00 :00 No 40mg Take 40 mg by mouth daily. [facility] benzonatate (TESSALON PERLES) capsule 100 mg 08-01 20:00: 00 Yes 100mg 100 mg, Oral, Q8H, First dose on Thu08/01/22 at 1400, Until Discontinu ed, Routine [facility] ipratropium -albuteroL (DUONEB) 0.5 mg-3 mg(2.5 mg base)/3 mL nebulizer solution 3 mL 08-01 18:00: 00 Yes 3mL 3 mL, Inhalation , QID, First dose on Thu08/01/22 at 1200, Until Discontinu ed, Routine [facility] ipratropium -albuteroL (DUONEB) 0.5 mg-3 mg(2.5 mg base)/3 mL nebulizer solution 3 mL 08-01 17:07: 07 Yes 3mL 3 mL, Inhalation , QIDPRN, Starting on Thu08/01/22 at 1107, Until Discontinu ed, MICHAEL, Wheezing, Shortness of Breath [facility] sulfur hexafluorid e microsphr (LUMASON) injection 5 mL 08-01 17:00: 00 08-01 17:00 :00 No [id number] 5mL 5 mL, Intravenou s, ONCE, 1 dose, On Thu08/01/22 at 1100, Routine
direct support staff member approving Restricted medication : KYLEE DIEGO [facility] pantoprazol e (PROTONIX) EC tablet 40 mg 08-01 15:00: 00 Yes 40mg 40 mg, Oral, DAILY, First dose on Thu08/01/22 at 0900, Until Discontinu ed, Routine [facility] aspirin chewable tablet 81 mg 08-01 15:00: 00 Yes 81mg 81 mg, Oral, DAILY, First dose on Thu08/01/22 at 0900, Until Discontinu ed, Routine [facility] amLODIPine (NORVASC) tablet 10 mg 08-01 15:00: 00 Yes 10mg 10 mg, Oral, DAILY, First dose on Thu08/01/22 at 0900, Until Discontinu ed, Routine [facility] levETIRAcet am (KEPPRA) tablet 500 mg 08-01 14:00: 00 08-01 23:56 :35 No 500mg 500 mg, Oral, BID, First dose on Thu08/01/22 at 0800, Until Discontinu ed, Routine [facility] carvediloL (COREG) tablet 6.25 [...] 0045, Administer over 15 Minutes, 100 mL [facility] LORazepam (ATIVAN) injection 1 mg 08-01 05:52: 54 Yes 1mg 1 mg, Slow IV Push, Q4HPRN, Starting on Thu07/31/22 at 2352, Until Discontinu ed, Routine, Seizures, Agitation, Anxiety, ETOH / Cocaine Withdrawl [facility] foLIC acid (FOLATE) tablet 1 [...] 1 dose, On Thu07/31/22 at 2330, MICHAEL [facility] atorvastati n (LIPITOR) tablet 40 [...] dose, On Thu07/31/22 at 1700, Routine [facility] HYDROcodone -acetaminop hen (NORCO) 10-325 mg tablet 1 tablet 07-31 22:01: 36 Yes 1{tbl} 1 tablet, Oral, Q6HPRN, Starting on Thu07/31/22 at 1601, Until Discontinu ed, Routine, Pain (scale 7-10) [facility] HYDROcodone -acetaminop hen (NORCO 5) [...] 1 dose, On Thu07/31/22 at 1500, MICHAEL [facility] furosemide (LASIX) injection 40 mg 07-31 20:15: 00 Yes 40mg 40 mg, Slow IV Push, Q12H, First dose on Arpita 07/31/22 at 1415, Until Discontinu ed, Routine [facility] methylpredn isolone sod succ (SOLU-MEDRO L) injection 125 mg 07-31 19:30: 00 07-31 18:54 :00 No 125mg 125 mg, Slow IV Push, ONCE NOW, 1 dose, On Arpita 07/31/22 at 1330, MICHAEL [facility] ipratropium -albuteroL (DUONEB) 0.5 mg-3 mg(2.5 mg base)/3 mL nebulizer solution 3 mL 07-31 19:30: 00 07-31 18:48 :00 No 3mL 3 mL, Inhalation , ONCE, 1 dose, On Arpita 07/31/22 at 1330, MICHAEL [facility] pantoprazol e 40 mg EC tablet 07-31 17:15: 40 Yes 40mg Take 40 mg by mouth daily. [facility] MULTIVITAMI N ORAL 07-31 15:50: 57 Yes 1{tbl} Take 1 Tab by mouth daily. [facility] loratadine (CLARITIN LIQUI-GEL) 10 mg capsule 07-31 15:50: 57 Yes Take by mouth daily. [facility] ondansetron 4 mg tablet 07-31 15:50: 57 Yes 4mg Take 4 mg by mouth every 8 (eight) hours as needed. [facility] omega-3 fatty acids-vitam in E (FISH OIL) 1,000 mg capsule 07-31 15:21: 27 Yes 1g Take 1 g by mouth daily. [facility] TAKE ONE (1) TABLET(S) BY MOUTH THREE TIMES A DAY NEEDED. 07-28 00:00: 00 No Methylpredn isolone 4 mg tablet 2021-07 00:00: 00 05-12 04:59 :00 No [id number] 4mg Take 1 tablet through enteral tube in the morning for 1 dose. [facility] Methylpredn isolone 4 mg tablet 2021-07 00:00: 00 05-11 04:59 :00 No [id number] 4mg Take 1 tablet through enteral tube every 12 (twelve) hours for 2 doses. [facility] MULTIVITAMI N ORAL 2021-07 14:44: 48 Yes 1{tbl} Take 1 Tab by mouth daily. [facility] omega-3 fatty acids-vitam in E (FISH OIL) 1,000 mg capsule 2021-07 14:44: 48 Yes 1g Take 1 g by mouth daily. [facility] loratadine (CLARITIN LIQUI-GEL) 10 mg capsule 2021-07 14:44: 48 Yes Take by mouth daily. [facility] ondansetron (ZOFRAN) 4 mg tablet 2021-07 14:44: 48 Yes 4mg Take 4 mg by mouth every 8 (eight) hours as needed. [facility] pantoprazol e (PROTONIX) 40 mg EC tablet 2021-07 14:44: 48 Yes 40mg Take 40 mg by mouth daily. [facility] DULoxetine 30 mg capsule 2021-07 14:00: 00 Yes 30mg Take 1 capsule by mouth in the morning. [facility] divalproex (DEPAKOTE) EC tablet 1,000 mg 2021-07 13:00: 00 Yes 1000mg 1,000 mg, Oral, BID, First dose (after last modificati on) on Thu05/08/22 at 0800, Until Discontinu ed, Routine [facility] Methylpredn isolone (MEDROL) tablet 4 mg 2021-07 08:50: 10 05-09 08:59 :00 No 4mg 4 mg, Oral, Q8H TAPER, 3 doses, First dose on Thu05/08/22 at 0400, Last dose on Thu05/08/22 at 2000, Routine [facility] acetaminoph en-codeine (TYLENOL #3) 300-30 mg tablet 1 tablet 2021-07 04:07: 01 Yes 1{tbl} 1 tablet, Oral, Q4HPRN, Starting on Thu05/07/22 at 2307, Until Discontinu ed, Routine, Pain (scale 7-10) [facility] morpHINE (2 mg/mL) injection 2 mg 2021-07 03:03: 15 Yes 2mg 2 mg, Slow IV Push, Q4HPRN, Starting on Thu05/07/22 at 2203, Until Discontinu ed, Routine, Pain (scale 7-10) [facility] LORazepam (ATIVAN) tablet 1 mg 2021-07 00:02: 18 Yes 1mg 1 mg, Oral, Q6HPRN, Starting on Thu05/07/22 at 1902, Until Discontinu ed, Routine, Anxiety [facility] cyclobenzap rine 5 mg tablet 2021-07 00:00: 00 Yes [id number] 5mg Take 1 tablet by mouth in the morning and 1 tablet at noon and 1 tablet in the evening. [facility] DULoxetine (CYMBALTA) 30 mg capsule 2021-07 00:00: 00 06-08 05:59 :00 No [id number] 60mg Take 2 capsules by mouth in the morning for 30 days. [facility] divalproex (DEPAKOTE) 250 mg EC tablet 2021-07 00:00: 00 06-08 05:59 :00 No [id number] 750mg Take 3 tablets by mouth every 8 (eight) hours for 30 days. [facility] LORazepam 1 mg tablet 2021-07 00:00: 00 05-19 04:59 :00 No [id number] 1mg Take 1 tablet by mouth every 6 (six) hours as needed for Anxiety or Agitation for up to 10 days. [facility] acetaminoph en-codeine 300-30 mg tablet 2021-07 00:00: 00 05-16 04:59 :00 No [id number] 1{tbl} Take 1 tablet by mouth every 4 (four) hours as needed for Pain (scale 7-10) for up to 7 days. Indication s: acute pain [facility] Methylpredn isolone 4 mg tablet 2021-07 00:00: 00 05-10 04:59 :00 No [id number] 4mg Take 1 tablet by mouth every 8 (eight) hours for 3 doses. [facility] divalproex (DEPAKOTE) EC tablet 750 mg 2021-07 01:00: 00 05-08 09:40 :23 No 750mg 750 mg, Oral, BID, First dose on Thu05/06/22 at 2000, Until Discontinu ed, Routine [facility] levETIRAcet am (KEPPRA) tablet 1,500 mg 2021-07 13:00: 00 05-06 18:38 :22 No 1500mg 1,500 mg, Oral, BID, First dose (after last modificati on) on Thu05/06/22 at 0800, Until Discontinu ed, Routine [facility] levETIRAcet am (KEPPRA) in NACL (ISO-OS) 1,000 mg/100 mL RTU 2021-07 05:00: 00 05-06 05:46 :00 No 1000mg 1,000 mg, IV Piggyback, ONCE, 1 dose, On Thu05/06/22 at 0000, Administer over 15 Minutes, 100 mL [facility] methocarbam oL (ROBAXIN) tablet 500 mg 2021-07 02:15: 00 05-06 23:21 :42 No 500mg 500 mg, Oral, QID, First dose on Thu05/05/22 at 2115, Until Discontinu ed, Routine [facility] LORazepam (ATIVAN) tablet 2 mg 2021-07 01:30: 00 05-06 01:03 :00 No 2mg 2 mg, Oral, ONCE, 1 dose, On Thu05/05/22 at 2030, Routine [facility] levETIRAcet am (KEPPRA) tablet 1,000 mg 2021-07 01:00: 00 05-06 04:48 :06 No 1000mg 1,000 mg, Oral, BID, First dose on Thu05/05/22 at 2000, Until Discontinu ed, Routine [facility] enoxaparin (LOVENOX) injection 40 mg 2021-07 00:15: 00 Yes 40mg 40 mg, Subcutaneo us, Q24H, First dose on Thu05/05/22 at 1915, Until Discontinu ed, Routine [facility] levETIRAcet am (KEPPRA) in NACL (ISO-OS) 1,000 mg/100 mL RTU 2021-07 19:45: 00 05-05 20:05 :00 No 1000mg 1,000 mg, IV Piggyback, ONCE, 1 dose, On Thu05/05/22 at 1445, Administer over 15 Minutes, 100 mL [facility] clonazePAM (KLONOPIN) tablet 0.5 mg 2021-07 19:30: 00 Yes .5mg 0.5 mg, Oral, BID, First dose on Thu05/05/22 at 1430, Until Discontinu ed, Routine [facility] ibuprofen (IBU) tablet 600 mg 2021-07 19:30: 00 Yes 600mg 600 mg, Oral, TID MEALS, First dose on Thu05/05/22 at 1430, Until Discontinu ed, Routine [facility] gabapentin (NEURONTIN) capsule 300 mg 2021-07 19:30: 00 Yes 300mg 300 mg, Oral, TID, First dose on Thu05/05/22 at 1430, Until Discontinu ed, Routine [facility] cyclobenzap rine (FLEXERIL) tablet 5 mg 2021-07 19:30: 00 Yes 5mg 5 mg, Oral, TID, First dose on Thu05/05/22 at 1430, Until Discontinu ed, Routine [facility] acetaminoph en (TYLENOL) tablet 1,000 mg 2021-07 19:30: 00 Yes 1000mg 1,000 mg, Oral, Q8H, First dose on Thu05/05/22 at 1430, Until Discontinu ed, Routine [facility] pantoprazol e (PROTONIX) EC tablet 40 mg 2021-07 14:00: 00 Yes 40mg 40 mg, Oral, DAILY, First dose on Thu05/05/22 at 0900, Until Discontinu ed, Routine [facility] docusate (COLACE) capsule 100 [...] Thu05/05/22 at 1418, Routine, Pain (scale 7-10) [facility] ondansetron (ZOFRAN (PF)) injection 4 [...] Thu05/05/22 at 0532, Routine, Pain (scale 7-10) [facility] acetaminoph en (TYLENOL) tablet 325 mg 2021-07 06:49: 39 05-05 19:18 :52 No 325mg 325 mg, Oral, Q4HPRN, Starting on Thu05/05/22 at 0149, Until Thu05/05/22 at 1418, Routine, Pain (scale 4-6) [facility] ondansetron (ZOFRAN) tablet 4 mg 2021-07 04:00: 00 05-05 03:26 :00 No 4mg 4 mg, Oral, ONCE, 1 dose, On 05/04/22 at 2300, Routine [facility] morpHINE (2 mg/mL) injection 2 mg 2021-07 04:00: 00 05-05 03:26 :00 No 2mg 2 mg, Slow IV Push, ONCE, 1 dose, On 05/04/22 at 2300, Routine [facility] aspirin 81 mg chewable tablet 04-16 00:00: 00 Yes [id number] 81mg Take 1 tablet by mouth in the morning. [facility] MULTIVITAMI N ORAL 04-15 17:39: 14 Yes 1{tbl} Take 1 Tab by mouth daily. [facility] omega-3 fatty acids-vitam in E (FISH OIL) 1,000 mg capsule 04-15 17:39: 14 Yes 1g Take 1 g by mouth daily. [facility] lor[facility] (CLARITIN LIQUI-GEL) 10 mg capsule 04-15 17:39: 14 Yes Take by mouth daily. [facility] ondansetron (ZOFRAN) 4 mg tablet 04-15 17:39: 14 Yes 4mg Take 4 mg by mouth every 8 (eight) hours as needed. [facility] pantoprazol e (PROTONIX) 40 mg EC tablet 04-15 17:39: 14 Yes 40mg Take 40 mg by mouth daily. [facility] lisinopril- hydrochloro thiazide 20-12.5 mg per tablet 04-15 15:58: 35 04-15 00:00 :00 No 1{tbl} Take 1 tablet by mouth daily. [facility] levetiracet am (KEPPRA ORAL) 04-15 15:58: 35 04-15 00:00 :00 No Take by mouth. [facility] acetaminoph en-codeine (TYLENOL #4) 300-60 mg tablet 1 tablet 04-15 05:39: 23 04-15 14:39 :42 No 1{tbl} 1 tablet, Oral, Q6HPRN, Starting on Thu04/15/22 at 0039, Until Thu04/15/22 at 0939, Routine, Pain (scale 4-6), Pain (scale 1-3) [facility] LORazepam (ATIVAN) tablet 2 mg 04-15 03:30: 00 04-15 10:27 :00 No 2mg 2 mg, Oral, ONCE, 1 dose, On Thu04/14/22 at 2230, Routine [facility] levETIRAcet am (KEPPRA) tablet 1,000 mg 04-15 02:45: 00 Yes 1000mg 1,000 mg, Oral, BID, First dose (after last modificati on) on Thu04/14/22 at 2145, Until Discontinu ed, Routine [facility] ketorolac (TORADOL) injection 15 mg 04-15 02:13: 00 04-15 02:22 :00 No 15mg 15 mg, Slow IV Push, ONCE, 1 dose, On Thu04/14/22 at 2115, Routine [facility] levETIRAcet am 1,000 mg tablet 04-15 00:00: 00 Yes [id number] 1000mg Take 1 tablet by mouth in the morning and 1 tablet in the evening. [facility] atorvastati n 40 mg tablet 04-15 00:00: 00 01-09 00:00 :00 No [id number] 40mg Take 1 tablet by mouth at bedtime. [facility] lidocaine 5 % (700 mg/patch) patch 04-15 00:00: 00 04-23 04:59 :00 No [id number] 1{patch } Apply 1 Patch to area(s) in the morning for 7 days. [facility] HYDROcodone -acetaminop hen 5-325 mg tablet 04-15 00:00: 00 04-21 04:59 :00 No [id number] 1{tbl} Take 1 tablet by mouth every 6 (six) hours as needed for Pain (scale 7-10) for up to 5 days. Indication s: acute pain [facility] lidocaine (LIDODERM) 5 % (700 mg/patch) patch 1 Patch 04-14 21:45: 29 Yes 1{patch } 1 Patch, Topical, Administer over 12 Hours, [id number], Starting on Thu04/14/22 at 1645, Until Discontinu ed, Routine, Localized pain [facility] aspirin chewable tablet 81 mg [...] > 38.5 C, Temp > 37.5 C [facility] HYDROcodone -acetaminop hen (NORCO) 10-325 mg tablet 1 tablet 04-14 21:29: 02 04-15 05:39 :41 No 1{tbl} 1 tablet, Oral, Q6HPRN, Starting on Thu04/14/22 at 1629, Until Thu04/15/22 at 0039, Routine, Pain (scale 7-10), Pain (scale 4-6) [facility] sulfur hexafluorid e microsphr (LUMASON) injection 5 mL 04-14 16:45: 00 04-14 16:45 :00 No [id number] 5mL 5 mL, Intravenou s, ONCE, 1 dose, On Thu04/14/22 at 1145, Routine
direct support staff member approving Restricted medication : MADELINE PIERRE [facility] clopidogreL (PLAVIX) 75 mg tablet 75 mg 04-14 14:00: 00 Yes 75mg 75 mg, Oral, DAILY, First dose on Thu04/14/22 at 0900, Until Discontinu ed, Routine [facility] pantoprazol e (PROTONIX) EC tablet 40 mg 04-14 14:00: 00 Yes 40mg 40 mg, Oral, DAILY, First dose on Thu04/14/22 at 0900, Until Discontinu ed, Routine [facility] atorvastati n (LIPITOR) tablet 40 mg 04-14 02:00: 00 Yes 40mg 40 mg, Oral, QHS, First dose on 04/13/22 at 2100, Until Discontinu ed, Routine [facility] LORazepam (ATIVAN) tablet 1 mg 04-14 01:30: 00 04-14 01:45 :00 No 1mg 1 mg, Oral, ONCE, 1 dose, On Thu04/13/22 at 2030, Routine [facility] methocarbam oL (ROBAXIN) tablet 500 mg 04-14 01:00: 00 Yes 500mg 500 mg, Oral, QID, First dose on Thu04/13/22 at 2000, Until Discontinu ed, Routine [facility] heparin (porcine) injection 5,000 Units 04-14 01:00: 00 Yes 5000U 5,000 Units, Subcutaneo us, Q12H, First dose on Thu04/13/22 at 2000, Until Discontinu ed, Routine [facility] acetaminoph en (TYLENOL) tablet 650 mg 04-14 00:23: 25 04-14 21:29 :42 No 650mg 650 mg, Oral, Q6HPRN, Starting on 04/13/22 at 1923, Until Thu04/14/22 at 1629, Routine, Pain (scale 1-3), Pain (scale 4-6), Temp > 38.5 C, Temp > 37.5 C [facility] lidocaine (LIDODERM) 5 % (700 [...] 1 dose, On Thu04/13/22 at 1430, MICHAEL [facility] iopamidol (ISOVUE 370-500 mL) injection 100 mL 04-13 18:31: 00 04-13 18:32 :00 No [id number] 100mL 100 mL, Intravenou s, ONCE, 1 dose, On Thu04/13/22 at 1345, Routine [facility] NaCl 0.9% (NS) injection 5 mL 04-13 18:14: 11 Yes 5mL 5 mL, Slow IV Push, PRN - SEE INSTRUCTIO NS, Starting on 04/13/22 at 1314, Until Discontinu ed, 10 mL [facility] aspirin chewable tablet 324 mg 11-24 14:00: 00 Yes 324mg 324 mg, Oral, DAILY, First dose on 11/24/21 at 0900, Until Discontinu ed, Routine [facility] metoclopram iker HCl (REGLAN) injection 10 mg 11-23 22:30: 00 11-23 21:24 :00 No 10mg 10 mg, Slow IV Push, ONCE, 1 dose, On 11/23/21 at 1730, [facility] acetaminoph en (TYLENOL) tablet 1,000 mg 11-23 22:15: 00 11-23 21:09 :00 No 1000mg 1,000 mg, Oral, ONCE, 1 dose, On 11/23/21 at 1715, [facility] ondansetron (ZOFRAN (PF)) injection 4 mg 11-23 21:45: 00 11-23 20:30 :00 No 4mg 4 mg, Slow IV Push, ONCE, 1 dose, On 11/23/21 at 1645, [facility] NaCl 0.9% (NS) bolus infusion 1,000 mL 11-23 21:30: 00 11-23 21:56 :00 No 1000mL at 999 mL/hr, 1,000 mL, IV Infusion, ONCE, 1 dose, On 11/23/21 at 1630, [facility] LORazepam (ATIVAN) injection 4 mg 11-23 21:30: 00 11-23 20:23 :00 No 4mg 4 mg, Slow IV Push, ONCE, 1 dose, On 11/23/21 at 1630, STAT [facility] levETIRAcet am (KEPPRA) in NACL (ISO-OS) 1,500 mg/100 mL RTU 2022-0 5-07 21:30: 00 202- 05-07 20:47 :00 No 1500mg 1,500 mg, IV Piggyback, ONCE, 1 dose, On 11/23/21 at 1630, Administer over 15 Minutes, 100 mL [facility] Dose Unknown 202-0 4-08 00:00: 00 No Dose Unknown 2022-0 [...] 2021-0 3-14 00:00: 00 No Dose Unknown 2-0 3-14 00:00: 00 No hydroxyzine HCl 50 [...] mg 24 hr tablet, extended release 2020-1 2-30 00:00: 00 No 1mg Dose Unknown [...] y
Durat ion of Therapy: 7 days [facility] morpHINE injection 4 mg 03-17 01:58: 00 03-17 02:13 :00 No 4mg 4 mg, Slow IV Push, ONCE, 1 dose, 03/16/21 at 2100, STAT [facility] ondansetron (ZOFRAN (PF)) injection 4 mg 03-17 01:58: 00 03-17 02:12 :00 No 4mg 4 mg, Slow IV Push, ONCE, 1 dose, 03/16/21 at 2100, MICHAEL [facility] ipratropium -albuteroL (DUONEB) 0.5 mg-3 mg(2.5 mg base)/3 mL nebulizer solution 3 mL 03-17 01:57: 00 03-17 02:15 :00 No 3mL 3 mL, Inhalation , ONCE, 1 dose, 03/16/21 at 2100, MICHAEL [facility] NaCl 0.9% (NS) IV infusion 1,000 mL 03-17 01:57: 00 03-17 03:07 :00 No 1000mL at 999 mL/hr, Intravenou s, ONCE, 1 dose, 03/16/21 at 2100, MICHAEL [facility] methylpredn isolone sod succ (SOLU-MEDRO L) injection 125 mg 03-17 01:57: 00 03-17 02:11 :00 No 125mg 125 mg, Slow IV Push, ONCE, 1 dose, 03/16/21 at 2100, STAT [facility] levoFLOXaci n 500 mg tablet 03-17 00:00: 00 03-24 04:59 :00 No [id number] 500mg Take 1 tablet by mouth daily for 6 days. [facility] predniSONE 10 mg tablet 03-17 00:00: 00 03-22 04:59 :00 No [id number] 30mg Take 3 tablets by mouth daily for 4 days. [facility] albuterol (VENTOLIN) inhaler 4 Puff 03-15 01:45: 00 03-15 00:44 :00 No [id number] 4{puff} 4 Puff, Inhalation , ONCE, 1 dose, Arpita 03/14/21 at 2044, Routine [facility] dexamethaso ne (DECADRON) injection 10 mg 03-15 01:45: 00 03-15 00:45 :00 No [id number] 10mg 10 mg, Intramuscu lar, ONCE, 1 dose, Arpita 03/14/21 at 2044, Routine [facility] albuterol 2.5 mg /3 mL (0.083 %) nebulizer solution 03-15 00:00: 00 01-09 00:00 :00 No [id number] 2.5mg Inhale 3 mL every 4 (four) hours as needed for Wheezing or Shortness of Breath. [facility] levETIRAcet am (KEPPRA) in NACL (ISO-OS) 1,000 mg/100 mL RTU 02-19 20:15: 00 02-19 19:30 :00 No 1000mg 1,000 mg, IV Infusion, ONCE, 1 dose, 02/19/21 at 1515, Administer over 15 Minutes, 100 mL [facility] levetiracet am (KEPPRA ORAL) 02-19 19:45: 33 Yes Take by mouth. [facility] LISINOPRIL- HYDROCHLORO THIAZIDE ORAL 02-19 19:41: 15 02-19 00:00 :00 No Take by mouth. [facility] dicyclomine (BENTYL) injection 20 mg 02-19 19:15: 00 02-19 19:04 :00 No 20mg 20 mg, Intramuscu lar, ONCE, 1 dose, 02/19/21 at 1415, Routine [facility] proMETHazin e (PHENERGAN) 25 mg in NaCl 0.9% (NS) 50 mL piggyback 02-19 19:15: 00 02-19 19:03 :00 No 25mg 25 mg, IV Piggyback, ONCE, 1 dose, 02/19/21 at 1415, 50 mL [facility] morpHINE injection 4 mg 02-19 17:15: 00 02-19 17:05 :00 No 4mg 4 mg, Slow IV Push, ONCE, 1 dose, 02/19/21 at 1215, STAT [facility] NaCl 0.9% (NS) bolus infusion 1,000 mL 02-19 17:15: 00 02-19 19:04 :00 No 1000mL at 999 mL/hr, 1,000 mL, IV Infusion, ONCE, 1 dose, 02/19/21 at 1215, STAT [facility] ondansetron (ZOFRAN (PF)) injection 4 mg 02-19 17:00: 00 02-19 15:59 :00 No 4mg 4 mg, Slow IV Push, ONCE, 1 dose, 02/19/21 at 1200, MICHAEL [facility] iopamidol (ISOVUE 370-500 mL) injection 100 mL 02-19 16:35: 00 02-19 16:45 :00 No [id number] 100mL 100 mL, Intravenou s, ONCE, 1 dose, Thu02/19/21 at 1145, Routine [facility] levetiracet am (KEPPRA ORAL) 02-19 14:45: 33 Yes Take by mouth. [facility] dicyclomine 20 mg tablet 02-19 00:00: 00 01-09 00:00 :00 No [id number] 20mg Take 1 tablet by mouth 4 (four) times daily as needed for Abdominal pain. [facility] proMETHazin e 25 mg tablet 02-19 00:00: 00 11-27 00:00 :00 No [id number] 25mg Take 1 tablet by mouth every 6 (six) hours as needed for Nausea and Vomiting (N/V). [facility] ZONISAMIDE 100 mg capsule 11-15 00:00: 00 Yes TAKE 1 CAPSULE BY MOUTH TWICE A DAY [facility] ondansetron (ZOFRAN) 4 mg tablet 02-09 20:05: 01 Yes 4mg Take 4 mg by mouth every 8 (eight) hours as needed. [facility] pantoprazol e (PROTONIX) 40 mg EC tablet 02-09 20:05: 01 Yes 40mg Take 40 mg by mouth daily. [facility] LISINOPRIL- HYDROCHLORO THIAZIDE ORAL 02-09 20:05: 01 Yes Take by mouth. [facility] lisinopril- hydrochloro thiazide 20-12.5 mg per tablet 02-09 20:03: 30 Yes 1{tbl} Take 1 tablet by mouth daily. [facility] omega-3 fatty acids-vitam in E (FISH OIL) 1,000 mg capsule 02-09 19:59: 52 Yes 1g Take 1 g by mouth daily. [facility] MULTIVITAMI N ORAL 02-09 19:58: 14 Yes 1{tbl} Take 1 Tab by mouth daily. [facility] loratadine (CLARITIN LIQUI-GEL) 10 mg capsule 02-09 19:58: 14 Yes Take by mouth daily. [facility] ondansetron (ZOFRAN) 4 mg tablet 02-09 15:05: 01 Yes 4mg Take 4 mg by mouth every 8 (eight) hours as needed. [facility] pantoprazol e (PROTONIX) 40 mg EC tablet 02-09 15:05: 01 Yes 40mg Take 40 mg by mouth daily. [facility] lisinopril- hydrochloro thiazide 20-12.5 mg per tablet 02-09 15:03: 30 Yes 1{tbl} Take 1 tablet by mouth daily. [facility] [facility] omega-3 fatty acids-vitam in E (FISH OIL) 1,000 mg capsule 02-09 14:59: 52 Yes 1g Take 1 g by mouth daily. [facility] MULTIVITAMI N ORAL 02-09 14:58: 14 Yes 1{tbl} Take 1 Tab by mouth daily. [facility] loratadine (CLARITIN LIQUI-GEL) 10 mg capsule 02-09 14:58: 14 Yes Take by mouth daily. [facility] proMETHazin e (PHENERGAN) 25 mg tablet 11-20 00:00: 00 Yes 25mg Take 1 tablet by mouth every 6 (six) hours as needed for Nausea and Vomiting (N/V). [facility] carvedilol (COREG) 6.25 mg tablet 09-19 00:00: 00 12-02 00:00 :00 No 6.25mg Take 1 Tab by mouth 2 (two) times daily with meals. [facility] amLODIPine (NORVASC) 10 mg tablet 09-19 00:00: 00 12-02 00:00 :00 No 10mg Take 1 Tab by mouth daily. [facility] lisinopril (PRINIVIL,Z ESTRIL) 40 mg tablet 09-19 00:00: 00 11-27 00:00 :00 No 40mg Take 1 Tab by mouth daily. [facility] Immunizations Ordered Immunization Name Filled Immunization Name Date Status Comments Source SARS-COV-2 COVID-19 PFIZER BA-SUCROSE VACCINE (ROSE TOP) 2022-02-19 00:00:00 Completed [facility] SARS-COV-2 COVID-19 PFIZER BA-SUCROSE VACCINE (ROSE TOP) 2022-02-19 00:00:00 Completed [facility] SARS-COV-2 COVID-19 PFIZER BA-SUCROSE VACCINE (ROSE TOP) 2022-02-19 00:00:00 Completed [facility] SARS-COV-2 COVID-19 PFIZER BA-SUCROSE VACCINE (ROSE TOP) 2022-02-19 00:00:00 Completed [facility] SARS-COV-2 COVID-19 PFIZER BA-SUCROSE VACCINE (ROSE TOP) 2022-02-19 00:00:00 Completed [facility] SARS-COV-2 COVID-19 PFIZER BA-SUCROSE VACCINE (ROSE TOP) 2022-02-19 00:00:00 Completed [facility] SARS-COV-2 COVID-19 PFIZER BA-SUCROSE VACCINE (ROSE TOP) 2022-02-19 00:00:00 Completed [facility] SARS-COV-2 COVID-19 PFIZER BA-SUCROSE VACCINE (ROSE TOP) 2022-02-19 00:00:00 Completed [facility] SARS-COV-2 COVID-19 PFIZER BA-SUCROSE VACCINE (ROSE TOP) 2022-02-19 00:00:00 Completed [facility] SARS-COV-2 COVID-19 PFIZER BA-SUCROSE VACCINE (ROSE TOP) 2022-02-19 00:00:00 Completed [facility] SARS-COV-2 COVID-19 PFIZER VACCINE 2021-05-24 00:00:00 Completed SARS-COV-2 COVID-19 PFIZER VACCINE 2021-05-24 00:00:00 Completed [facility] SARS-COV-2 COVID-19 PFIZER VACCINE 2021-05-24 00:00:00 Completed [facility] SARS-COV-2 COVID-19 PFIZER VACCINE 2021-05-24 00:00:00 Completed [facility] SARS-COV-2 COVID-19 PFIZER VACCINE 2021-05-24 00:00:00 Completed [facility] SARS-COV-2 COVID-19 PFIZER VACCINE 2021-05-24 00:00:00 Completed [facility] SARS-COV-2 COVID-19 PFIZER VACCINE 2021-05-24 00:00:00 Completed [facility] SARS-COV-2 COVID-19 PFIZER VACCINE 2021-05-24 00:00:00 Completed [facility] SARS-COV-2 COVID-19 PFIZER VACCINE 2021-05-24 00:00:00 Completed [facility] SARS-COV-2 COVID-19 PFIZER VACCINE 2021-05-24 00:00:00 Completed [facility] SARS-COV-2 COVID-19 PFIZER VACCINE 2021-05-24 00:00:00 Completed [facility] SARS-COV-2 COVID-19 PFIZER VACCINE 2021-05-24 00:00:00 Completed [facility] SARS-COV-2 COVID-19 PFIZER VACCINE 2021-05-03 00:00:00 Completed [facility] SARS-COV-2 COVID-19 PFIZER VACCINE 2021-05-03 00:00:00 Completed [facility] SARS-COV-2 COVID-19 PFIZER VACCINE 2021-05-03 00:00:00 Completed [facility] SARS-COV-2 COVID-19 PFIZER VACCINE 2021-05-03 00:00:00 Completed [facility] SARS-COV-2 COVID-19 PFIZER VACCINE 2021-05-03 00:00:00 Completed [facility] SARS-COV-2 COVID-19 PFIZER VACCINE 2021-05-03 00:00:00 Completed [facility] SARS-COV-2 COVID-19 PFIZER VACCINE 2021-05-03 00:00:00 Completed [facility] SARS-COV-2 COVID-19 PFIZER VACCINE 2021-05-03 00:00:00 Completed [facility] SARS-COV-2 COVID-19 PFIZER VACCINE 2021-05-03 00:00:00 Completed [facility] SARS-COV-2 COVID-19 PFIZER VACCINE 2021-05-03 00:00:00 Completed [facility] SARS-COV-2 COVID-19 PFIZER VACCINE 2021-05-03 00:00:00 Completed [facility] SARS-COV-2 COVID-19 PFIZER VACCINE 2021-05-03 00:00:00 Completed [facility] SARS-COV-2 COVID-19 PFIZER VACCINE 2021-05-03 00:00:00 Completed [facility] SARS-COV-2 COVID-19 PFIZER VACCINE Unknown Completed [facility] SARS-COV-2 COVID-19 PFIZER BA-SUCROSE VACCINE (ROSE TOP) Unknown Completed [facility] SARS-COV-2 COVID-19 PFIZER BA-SUCROSE VACCINE (ROSE TOP) Unknown [facility] SARS-[facility]OV-2 COVID-19 PFIZER VACCINE Unknown Completed [facility] SARS-COV-2 COVID-19 PFIZER VACCINE Unknown Completed [facility] SARS-COV-2 COVID-19 PFIZER BA-SUCROSE VACCINE (ROSE TOP) Unknown [facility] SARS-COV-2 COVID-19 PFIZER VACCINE Unknown Completed [facility] SARS-COV-2 COVID-19 PFIZER BA-SUCROSE VACCINE (ROSE TOP) Unknown Completed [facility] SARS-COV-2 COVID-19 PFIZER VACCINE Unknown Completed [facility] SARS-COV-2 COVID-19 PFIZER BA-SUCROSE VACCINE (ROSE TOP) Unknown [facility] SARS-COV-2 COVID-19 PFIZER VACCINE Unknown Completed [facility] SARS-COV-2 COVID-19 PFIZER BA-SUCROSE VACCINE (ROSE TOP) Unknown Completed [facility] SARS-COV-2 COVID-19 PFIZER VACCINE Unknown Completed [facility] SARS-COV-2 COVID-19 PFIZER BA-SUCROSE VACCINE (ROSE TOP) Unknown Completed [facility] SARS-COV-2 COVID-19 PFIZER VACCINE Unknown Completed [facility] SARS-COV-2 COVID-19 PFIZER BA-SUCROSE VACCINE (ROSE TOP) Unknown Completed [facility] SARS-COV-2 COVID-19 PFIZER VACCINE Unknown Completed [facility] SARS-COV-2 COVID-19 PFIZER BA-SUCROSE VACCINE (ROSE TOP) Unknown Completed [facility] SARS-COV-2 COVID-19 PFIZER VACCINE Unknown Completed [facility] SARS-COV-2 COVID-19 PFIZER BA-SUCROSE VACCINE (ROSE TOP) Unknown Completed [facility] SARS-COV-2 COVID-19 PFIZER VACCINE Unknown Completed [facility] SARS-COV-2 COVID-19 PFIZER BA-SUCROSE VACCINE (ROSE TOP) Unknown Completed [facility] SARS-COV-2 COVID-19 PFIZER VACCINE Unknown Completed [facility] SARS-COV-2 COVID-19 PFIZER BA-SUCROSE VACCINE (ROSE TOP) Unknown Completed [facility] SARS-COV-2 COVID-19 PFIZER VACCINE Unknown Completed [facility] SARS-COV-2 COVID-19 PFIZER BA-SUCROSE VACCINE (ROSE TOP) Unknown Completed [facility] SARS-COV-2 COVID-19 PFIZER VACCINE Unknown Completed [facility] SARS-COV-2 COVID-19 PFIZER BA-SUCROSE VACCINE (ROSE TOP) Unknown Completed [facility] Vital Signs Vital Name Observation Time Observation Value Comments S ource Systolic blood pressure 2025-04-10 00:27:28 101 mm[Hg] [facility] Diastolic blood pressure 2025-04-10 00:27:28 71 mm[Hg] [facility] Heart rate 2025-04-10 00:27:28 100 /min [facility] Body temperature 2025-04-10 00:27:28 37.06 Radha [facility] Respiratory rate 2025-04-10 00:27:28 20 /min [facility] Oxygen saturation in Arterial blood by Pulse oximetry 2025-04-10 00:27:28 94 /min [facility] Body height 2025-04-09 20:59:00 160 cm [facility] Body weight 2025-04-09 20:59:00 83.915 kg [facility] BMI 2025-04-09 20:59:00 32.77 kg/m2 [facility] Height 2025-04-08 14:40:00 160.268647 cm [facility] Weight 2025-04-08 14:40:00 81.159545 kg [facility] BMI (Body Mass Index) 2025-04-08 14:40:00 31.9 kg/m2 [facility] Systolic blood pressure 2025-04-07 03:00:00 111 mm[Hg] [facility] Diastolic blood pressure 2025-04-07 03:00:00 75 mm[Hg] [facility] Heart rate 2025-04-07 03:00:00 77 /min [facility] Body temperature 2025-04-07 03:00:00 36.67 Radha [facility] Respiratory rate 2025-04-07 03:00:00 18 /min [facility] Oxygen saturation in Arterial blood by Pulse oximetry 2025-04-07 03:00:00 95 /min [facility] Body height 2025-04-06 22:18:00 157.5 cm [facility] Body weight 2025-04-06 22:18:00 83.915 kg [facility] BMI 2025-04-06 22:18:00 33.84 kg/m2 [facility] Systolic blood pressure 2025-04-05 14:15:00 138 mm[Hg] Cynthia Seybo ld - External Diastolic blood pressure 2025-04-05 14:15:00 79 mm[Hg] Cynthia Seybo ld - External Heart rate 2025-04-05 14:15:00 96 /min Kelse y Seybold - External Body temperature 2025-04-05 14:15:00 36.61 Radha Cynthia Seybold - External Respiratory rate 2025-04-05 14:15:00 20 /min Cynthia Seybold - External Body height 2025-04-05 14:15:00 160 cm Esthela ey Seybold - External Body weight 2025-04-05 14:15:00 83.915 kg Esthela ey Seybold - External BMI 2025-04-05 14:15:00 32.77 kg/m2 Esthela ey Seybold - External Oxygen saturation in Arterial blood by Pulse oximetry 2025-04-05 14:15:00 100 /min Cynthia Sey bold - External Systolic blood pressure 2025-02-19 17:43:00 105 mm[Hg] [facility] Diastolic blood pressure 2025-02-19 17:43:00 52 mm[Hg] [facility] Heart rate 2025-02-19 17:43:00 99 /min [facility] Body temperature 2025-02-19 17:43:00 36.33 Radha [facility] Oxygen saturation in Arterial blood by Pulse oximetry 2025-02-19 17:43:00 92 /min [facility] Respiratory rate 2025-02-19 07:55:00 19 /min [facility] Body height 2025-02-17 10:08:00 157.5 cm [facility] Body weight 2025-02-17 10:08:00 84.7 kg [facility] BMI 2025-02-17 10:08:00 34.14 kg/m2 [facility] Systolic blood pressure 2025-02-13 23:30:00 139 mm[Hg] [facility] Diastolic blood pressure 2025-02-13 23:30:00 95 mm[Hg] [facility] Heart rate 2025-02-13 23:30:00 97 /min [facility] Body temperature 2025-02-13 23:30:00 36.44 Radha [facility] Respiratory rate 2025-02-13 23:30:00 24 /min [facility] Oxygen saturation in Arterial blood by Pulse oximetry 2025-02-13 23:30:00 100 /min [facility] Body height 2025-02-13 18:44:00 157.5 cm [facility] Body weight 2025-02-13 18:44:00 84.687 kg [facility] BMI 2025-02-13 18:44:00 34.15 kg/m2 [facility] Systolic blood pressure 2025-02-10 15:15:00 138 mm[Hg] Cynthia wu - External Diastolic blood pressure 2025-02-10 15:15:00 82 mm[Hg] Cynthia wu - External Heart rate 2025-02-10 15:06:00 109 /min Kimani y Seybold - External Body temperature 2025-02-10 15:06:00 37.11 Radha Cynthia Seybold - External Respiratory rate 2025-02-10 15:06:00 15 /min Cynthia Seybold - External Body height 2025-02-10 15:06:00 160 cm Esthela ey Seybold - External Body weight 2025-02-10 15:06:00 81.647 kg wheelchair Esthela ey Seybold - External BMI 2025-02-10 15:06:00 31.89 kg/m2 Esthela ey Seybold - External Oxygen saturation in Arterial blood by Pulse oximetry 2025-02-10 15:06:00 98 /min Cynthia Macdonaldy bold - External Body temperature 2025-02-07 13:00:00 36.61 Radha [facility] Systolic blood pressure 2025-02-07 11:00:00 122 mm[Hg] [facility] Diastolic blood pressure 2025-02-07 11:00:00 55 mm[Hg] [facility] Heart rate 2025-02-07 11:00:00 101 /min [facility] Res[facility] 2025-02-07 11:00:00 18 /min [facility] Oxygen saturation in Arterial blood by Pulse oximetry 2025-02-07 11:00:00 96 /min [facility] Body height 2025-02-06 11:42:00 172.7 cm [facility] Body weight 2025-02-06 11:42:00 89 kg [facility] 2025-02-06 11:42:00 29.84 kg/m2 [facility] Body temperature 2025-02-07 13:00:00 36.61 Radha [facility] Systolic blood pressure 2025-02-07 11:00:00 122 mm[Hg] [facility] Diastolic blood pressure 2025-02-07 11:00:00 55 mm[Hg] [facility] Heart rate 2025-02-07 11:00:00 101 /min [facility] Respiratory rate 2025-02-07 11:00:00 18 /min [facility] Oxygen saturation in Arterial blood by Pulse oximetry 2025-02-07 11:00:00 96 /min [facility] Body height 2025-02-06 11:42:00 172.7 cm Jeffrey Ayalaann Epic Body weight 2025-02-06 11:42:00 89 kg Jeffrey Ayalaann Epic BMI 2025-02-06 11:42:00 29.84 kg/m2 Jeffrey Ayalaann Epic Systolic blood pressure 2024-10-08 15:35:00 128 mm[Hg] [facility] Epic Diastolic blood pressure 2024-10-08 15:35:00 88 mm[Hg] [facility] Epic Heart rate 2024-10-08 15:35:00 97 /min Memor ial Miky Epic Respiratory rate 2024-10-08 15:35:00 18 [facility]terial blood by Pulse oximetry 2024-10-08 15:35:00 94 /min [facility] Epic Body temperature 2024-10-08 14:51:00 36.17 [facility] Epic Systolic blood pressure 2024-10-08 15:35:00 128 mm[Hg] [facility] Her [facility] Epic Diastolic blood pressure 2024-10-08 15:35:00 88 mm[Hg] [facility] [place] Epic Heart rate 2024-10-08 15:35:00 97 /min Mem[facility] Miky Epic Respiratory rate 2024-10-08 15:35:00 18 /[facility] in Arterial blood by Pulse oximetry 2024-10-08 15:35:00 94 /min [facility] Epic Body temperature 2024-10-08 14:51:00 36.17 [facility] Miky Epic Systolic blood pressure 2024-08-10 15:08:00 164 mm[Hg] [facility] Her [place] Epic Diastolic blood pressure 2024-08-10 15:08:00 87 mm[Hg] [facility] Epic Heart rate 2024-08-10 15:08:00 90 /min [facility] [place] Epic Body temperature 2024-08-10 15:08:00 36.44 [facility] Epic Respiratory rate 2024-08-10 15:08:00 20 /min [facility] in Arterial blood by Pulse oximetry 2024-08-10 15:08:00 97 /min [facility] Epic Body height 2024-08-10 05:20:00 160 cm Jeffrey Ayalaann Epic Body weight 2024-08-10 05:20:00 81.647 kg Jeffrey Ayalaann Epic BMI 2024-08-10 05:20:00 31.89 kg/m2 Jeffrey Ayalaann Epic Systolic blood pressure 2024-08-10 15:08:00 164 mm[Hg] [facility] Epic Diastolic blood pressure 2024-08-10 15:08:00 87 mm[Hg] [facility] Epic Heart rate 2024-08-10 15:08:00 90 /[facility] Body temperature 2024-08-10 15:08:00 36.44 Radha [facility] Epic Respiratory rate 2024-08-10 15:08:00 20 /min [facility] Epic Oxygen saturation in Arterial blood by Pulse oximetry 2024-08-10 15:08:00 97 /min [facility] 2024-08-10 05:20:00 160 cm Jeffrey Ayalaann Epic Body weight 2024-08-10 05:20:00 81.647 kg Jeffrey Ayalaann Epic BMI 2024-08-10 05:20:00 31.89 kg/m2 Jeffrey avila Miky Epic Systolic blood pressure 2024-04-03 05:10:00 111 mm[Hg] [facility] Diastolic blood pressure 2024-04-03 05:10:00 65 mm[Hg] [facility] Heart rate 2024-04-03 05:10:00 70 /min [facility] 2024-04-03 05:10:00 23 /min [facility] Oxygen saturation in Arterial blood by Pulse oximetry 2024-04-03 05:10:00 97 /min [facility] Body temperature 2024-04-03 01:49:00 37.33 Radha [facility] Body height 2024-04-03 01:49:00 157.5 cm [facility] Body weight 2024-04-03 01:49:00 90.719 kg [facility] BMI 2024-04-03 01:49:00 36.58 kg/m2 [facility] Systolic blood pressure 2024-01-13 04:50:00 103 mm[Hg] [facility] Diastolic blood pressure 2024-01-13 04:50:00 72 mm[Hg] [facility] Heart rate 2024-01-13 04:50:00 85 /min [facility] Body temperature 2024-01-13 04:50:00 36.67 Radha [facility] Oxygen saturation in Arterial blood by Pulse oximetry 2024-01-13 04:50:00 99 /min [facility] Respiratory rate 2024-01-13 04:40:00 19 /min [facility] Body height 2024-01-13 03:06:00 160 cm [facility] Body weight 2024-01-13 03:06:00 81.194 kg [facility] BMI 2024-01-13 03:06:00 31.71 kg/m2 [facility] Systolic blood pressure 2024-01-10 20:00:00 95 mm[Hg] [facility] Diastolic blood pressure 2024-01-10 20:00:00 71 mm[Hg] [facility] Heart rate 2024-01-10 20:00:00 73 /min [facility] Body temperature 2024-01-10 20:00:00 36.83 Radha [facility] Respiratory rate 2024-01-10 20:00:00 23 /min [facility] Oxygen saturation in Arterial blood by Pulse oximetry 2024-01-10 20:00:00 94 /min [facility] Body weight 2024-01-10 09:00:00 81.466 kg [facility] BMI 2024-01-10 09:00:00 32.85 kg/m2 [facility] Body height 2024-01-09 21:10:00 157.5 cm [facility] Heart rate 2023-12-15 12:35:00 73 /min [facility] Respiratory rate 2023-12-15 12:35:00 18 /min [facility] Oxygen saturation in Arterial blood by Pulse oximetry 2023-12-15 12:35:00 95 /min [facility] Systolic blood pressure 2023-12-15 12:20:00 105 mm[Hg] [facility] Diastolic blood pressure 2023-12-15 12:20:00 64 mm[Hg] [facility] Body temperature 2023-12-15 12:20:00 36.11 Radha [facility] Body weight 2023-12-15 08:12:00 78.472 kg [facility] BMI 2023-12-15 08:12:00 30.65 kg/m2 [facility] Body height 2023-12-15 02:10:00 160 cm [facility] Systolic blood pressure 2023-12-03 23:00:00 106 mm[Hg] [facility] Diastolic blood pressure 2023-12-03 23:00:00 75 mm[Hg] [facility] Heart rate 2023-12-03 23:00:00 108 /min [facility] Body temperature 2023-12-03 23:00:00 36.61 Radha [facility] Respiratory rate 2023-12-03 23:00:00 17 /min [facility] Oxygen saturation in Arterial blood by Pulse oximetry 2023-12-03 23:00:00 96 /min [facility] Body height 2023-12-03 19:39:00 160 cm [facility] Body weight 2023-12-03 19:39:00 90.7 kg [facility] BMI 2023-12-03 19:39:00 35.43 kg/m2 [facility] Systolic blood pressure 2023-11-28 16:39:00 91 mm[Hg] [facility] Diastolic blood pressure 2023-11-28 16:39:00 65 mm[Hg] [facility] Heart rate 2023-11-28 16:39:00 105 /min [facility] Body temperature 2023-11-28 16:39:00 36.28 Radha [facility] Respiratory rate 2023-11-28 16:39:00 20 /min [facility] Oxygen saturation in Arterial blood by Pulse oximetry 2023-11-28 16:39:00 97 /min [facility] Body weight 2023-11-28 01:00:00 84 kg [facility] BMI 2023-11-28 01:00:00 32.81 kg/m2 [facility] Body height 2023-11-22 07:10:00 160 cm [facility] Systolic blood pressure 2023-11-23 19:43:25 123 mm[Hg] [facility] Diastolic blood pressure 2023-11-23 19:43:25 79 mm[Hg] [facility] Respiratory rate 2023-11-23 19:43:25 17 /min [facility] Oxygen saturation in Arterial blood by Pulse oximetry 2023-11-23 19:43:25 97 /min [facility] Heart rate 2023-11-23 19:20:46 122 /min [facility] Body temperature 2023-11-23 15:00:00 36.22 Radha [facility] Body height 2023-11-22 07:10:00 160 cm [facility] Body weight 2023-11-22 07:10:00 94.484 kg [facility] BMI 2023-11-22 07:10:00 35.16 kg/m2 [facility] Systolic blood pressure 2023-09-11 17:27:00 122 mm[Hg] Cynthia ybo ld - External Diastolic blood pressure 2023-09-11 [...] by Pulse oximetry 2023-09-11 17:27:00 97 /min Cynthiaglenys Neff nahum - External Systolic blood pressure 2023-08-12 21:00:00 130 mm[Hg] [facility] Diastolic blood pressure 2023-08-12 21:00:00 85 mm[Hg] [facility] Heart rate 2023-08-12 21:00:00 106 /min [facility] 2023-08-12 21:00:00 14 /min [facility] Oxygen saturation in Arterial blood by Pulse oximetry 2023-08-12 21:00:00 95 /min [facility] Body temperature 2023-08-12 20:34:54 37.22 Radha [facility] Body height 2023-08-12 19:47:00 157.5 cm [facility] Body weight 2023-08-12 19:47:00 81.647 kg [facility] BMI 2023-08-12 19:47:00 32.92 kg/m2 [facility] WEIGHT 2023-06-16 05:26:00 86.047 kg [...] [facility] Respiratory rate 2022-12-11 20:00:00 24 /min [facility] Heart rate 2022-12-11 18:00:00 101 /min [facility] Oxygen saturation in Arterial blood by Pulse oximetry 2022-12-11 18:00:00 93 /min [facility] BMI 2022-12-11 13:55:00 35.43 kg/m2 [facility] Body temperature 2022-12-11 13:55:00 37.22 Radha [facility] Body weight 2022-12-11 13:55:00 90.719 kg [facility] Systolic blood pressure 2022-11-18 05:34:00 152 mm[Hg] [facility] Diastolic blood pressure 2022-11-18 05:34:00 98 mm[Hg] [facility] Heart rate 2022-11-18 05:34:00 88 /min [facility] Respiratory rate 2022-11-18 05:34:00 18 /min [facility] Oxygen saturation in Arterial blood by Pulse oximetry 2022-11-18 05:34:00 97 /min [facility] Body temperature 2022-11-17 22:28:00 37.06 Radha [facility] Body height 2022-11-17 22:28:00 160 cm [facility] Body weight 2022-11-17 22:28:00 99.791 kg [facility] BMI 2022-11-17 22:28:00 38.97 kg/m2 [facility] Heart rate 2022-08-02 02:02:00 108 /min [facility] Respiratory rate 2022-08-02 02:02:00 28 /min [facility] Oxygen saturation in Arterial blood by Pulse oximetry 2022-08-02 02:02:00 97 /min [facility] Body temperature 2022-08-02 01:00:00 36.44 Radha [facility] Systolic blood pressure 2022-08-01 23:29:00 145 mm[Hg] [place] [facility] Diastolic blood pressure 2022-08-01 23:29:00 103 mm[Hg] [facility] Body weight 2022-08-01 09:16:00 97.977 kg [facility] BMI 2022-08-01 09:16:00 38.26 kg/m2 [facility] Body height 2022-07-31 21:54:00 160 cm [facility] Systolic blood pressure 2022-05-08 16:40:00 146 mm[Hg] [facility] Diastolic blood pressure 2022-05-08 16:40:00 96 mm[Hg] [facility] Heart rate 2022-05-08 16:40:00 112 /min [facility] Body temperature 2022-05-08 16:40:00 36.78 Radha [facility] Respiratory rate 2022-05-08 16:40:00 18 /min [facility] Oxygen saturation in Arterial blood by Pulse oximetry 2022-05-08 16:40:00 94 /min [facility] Body height 2022-05-05 23:44:00 160 cm [facility] Body weight 2022-05-05 23:37:00 81.647 kg [facility] BMI 2022-05-05 23:37:00 31.89 kg/m2 [facility] Systolic blood pressure 2022-04-15 18:52:00 104 mm[Hg] [facility] Diastolic blood pressure 2022-04-15 18:52:00 82 mm[Hg] [facility] Heart rate 2022-04-15 18:52:00 114 /min [facility] Oxygen saturation in Arterial blood by Pulse oximetry 2022-04-15 18:52:00 98 /min [facility] Body temperature 2022-04-15 16:14:00 36.28 Radha [facility] Respiratory rate 2022-04-15 16:14:00 17 /min [facility] Body height 2022-04-13 21:08:00 160 cm [facility] Body weight 2022-04-13 21:08:00 91.173 kg [facility] BMI 2022-04-13 21:08:00 35.61 kg/m2 [facility] Systolic blood pressure 2021-11-23 21:30:00 132 mm[Hg] [facility] Diastolic blood pressure 2021-11-23 21:30:00 76 mm[Hg] [facility] Heart rate 2021-11-23 21:30:00 95 /min [facility] Respiratory rate 2021-11-23 21:30:00 13 /min [facility] Oxygen saturation in Arterial blood by Pulse oximetry 2021-11-23 21:30:00 97 /min [facility] Body temperature 2021-11-23 20:15:00 37.56 Radha [facility] Systolic blood pressure 2021-03-17 03:00:00 117 mm[Hg] [facility] Diastolic blood pressure 2021-03-17 03:00:00 76 mm[Hg] [facility] Heart rate 2021-03-17 03:00:00 104 /min [facility] Respiratory rate 2021-03-17 03:00:00 28 /min [facility] Oxygen saturation in Arterial blood by Pulse oximetry 2021-03-17 03:00:00 96 /min [facility] Body temperature 2021-03-17 00:39:00 37.11 Radha [facility] Body height 2021-03-17 00:39:00 160 cm [facility] Body weight 2021-03-17 00:39:00 58.968 kg [facility] BMI 2021-03-17 00:39:00 23.03 kg/m2 [facility] Systolic blood pressure 2021-03-15 00:14:00 149 mm[Hg] [facility] Diastolic blood pressure 2021-03-15 00:14:00 78 mm[Hg] [facility] Heart rate 2021-03-15 00:14:00 100 /min Un[facility] Body temperature 2021-03-15 00:14:00 37.33 Radha [facility] Respiratory rate 2021-03-15 00:14:00 24 /min [facility] Body height 2021-03-15 00:14:00 160 cm [facility] Body weight 2021-03-15 00:14:00 58.968 kg [facility] BMI 2021-03-15 00:14:00 23.03 kg/m2 [facility] Oxygen saturation in Arterial blood by Pulse oximetry 2021-03-15 00:14:00 98 /min [facility] Systolic blood pressure 2021-02-19 18:00:00 131 mm[Hg] [facility] Diastolic blood pressure 2021-02-19 18:00:00 80 mm[Hg] [facility] Heart rate 2021-02-19 18:00:00 83 /min Unive [facility] Respiratory rate 2021-02-19 18:00:00 18 /min [facility] Oxygen saturation in Arterial blood by Pulse oximetry 2021-02-19 18:00:00 100 /min [facility] Body temperature 2021-02-19 15:47:00 37 Radha [facility] Body height 2021-02-19 15:47:00 160 cm [facility] Body weight 2021-02-19 15:47:00 58.968 kg [facility] BMI 2021-02-19 15:47:00 23.03 kg/m2 [facility] Heart rate 2023-09-08 08:54:00 118 /min [facility] Respiratory rate 2023-09-08 08:54:00 21 /min [facility] Oxygen saturation in Arterial blood by Pulse oximetry 2023-09-08 08:54:00 100 /min [facility] Systolic blood pressure 2023-09-08 08:32:00 110 mm[Hg] [facility] Diastolic blood pressure 2023-09-08 08:32:00 77 mm[Hg] [facility] Body temperature 2023-09-08 08:32:00 36.06 Radha [facility] Body height 2023-09-04 00:58:00 157.5 cm [facility] Body weight 2023-09-04 00:58:00 80 kg [facility] BMI 2023-09-04 00:58:00 32.26 kg/m2 [facility] Heart rate 2023-06-16 17:00:00 108 /min [facility] Systolic blood pressure 2023-06-16 15:31:00 101 mm[Hg] [facility] Diastolic blood pressure 2023-06-16 15:31:00 81 mm[Hg] [facility] Body temperature 2023-06-16 15:31:00 36.61 Radha [facility] Respiratory rate 2023-06-16 15:31:00 18 /min [facility] Oxygen saturation in Arterial blood by Pulse oximetry 2023-06-16 15:31:00 94 /min [facility] Body weight 2023-06-16 05:26:00 86.047 kg [facility] BMI 2023-06-16 05:26:00 33.60 kg/m2 [facility] Body height 2023-06-13 04:00:00 160 cm [facility] Systolic blood pressure 2023-06-04 13:02:00 93 mm[Hg] [facility] Diastolic blood pressure 2023-06-04 13:02:00 57 mm[Hg] [facility] Heart rate 2023-06-04 13:02:00 101 /min [facility] Respiratory rate 2023-06-04 13:02:00 22 /min [facility] Oxygen saturation in Arterial blood by Pulse oximetry 2023-06-04 13:02:00 95 /min room air [facility] Body temperature 2023-06-04 11:46:00 35.28 Radha [facility] Systolic blood pressure 2023-05-28 16:00:00 154 mm[Hg] [facility] Diastolic blood pressure 2023-05-28 16:00:00 82 mm[Hg] [facility] Heart rate 2023-05-28 16:00:00 89 /min [facility] Body temperature 2023-05-28 16:00:00 36.67 Radha [facility] Respiratory rate 2023-05-28 16:00:00 16 /min [facility] Oxygen saturation in Arterial blood by Pulse oximetry 2023-05-28 16:00:00 97 /min [facility] Body height 2023-05-28 07:00:00 157.5 cm [facility] Body weight 2023-05-28 07:00:00 87.544 kg [facility] BMI 2023-05-28 07:00:00 35.30 kg/m2 [facility] Body height 2023-05-26 09:12:00 157.5 cm [facility] Body weight 2023-05-26 09:12:00 87.091 kg [facility] BMI 2023-05-26 09:12:00 35.12 kg/m2 [facility] Respiratory rate 2023-04-02 16:35:00 18 /min [facility] Oxygen saturation in Arterial blood by Pulse oximetry 2023-04-02 16:35:00 98 /min [facility] Systolic blood pressure 2023-04-02 12:00:00 147 mm[Hg] [facility] Diastolic blood pressure 2023-04-02 12:00:00 97 mm[Hg] [facility] Heart rate 2023-04-02 12:00:00 106 /min [facility] Body temperature 2023-04-02 12:00:00 36.28 Radha [facility] Body height 2023-03-30 02:14:00 157.5 cm [facility] Body weight 2023-03-30 02:14:00 92.08 kg [facility] BMI 2023-03-30 02:14:00 37.13 kg/m2 [facility] Respiratory rate 2022-08-03 14:40:00 18 /min [facility] Systolic blood pressure 2022-08-03 12:13:00 112 mm[Hg] [facility] Diastolic blood pressure 2022-08-03 12:13:00 77 mm[Hg] [facility] Heart rate 2022-08-03 12:13:00 115 /min [facility] Oxygen saturation in Arterial blood by Pulse oximetry 2022-08-03 12:13:00 93 /min [facility] Body temperature 2022-08-03 12:00:00 36.83 Radha [facility] Body height 2022-08-02 21:52:00 160.2 cm [facility] Body weight 2022-08-02 21:52:00 95 kg [facility] BMI 2022-08-02 21:52:00 37.02 kg/m2 [facility] BP Systolic 2022-07-24 13:31:00 136 [...] Date / Time Performed Performing Clinician Source TROPONIN I 2025-04-09 23:01:00 Rosalba Lainez [facility] CT THORAX WO CONTRAST 2025-04-09 22:52:01 Rosalba Lainez [facility] XR CHEST 1 VW 2025-04-09 21:17:46 Rosalba Lainez [facility] AC PANEL 21 + LACTIC ACID 2025-04-09 21:09:00 Rosalba Lainez [facility] LIPASE 2025-04-09 21:06:00 Rosalba Lainez [facility] TROPONIN I 2025-04-09 21:06:00 Rosalba Lainez [facility] COMP. METABOLIC PANEL (25201) 2025-04-09 21:06:00 Rosalba Lainez [facility] CBC WITH DIFF 2025-04-09 21:06:00 Rosalba Lainez [facility] N-TERMINAL PRO-BNP 2025-04-09 21:06:00 Rosalba Lainez [facility] EKG-12 LEAD 2025-04-07 03:07:42 Sapna Quiroz [facility] URINALYSIS 2025-04-07 01:53:00 Sapna Quiroz [facility] URINE DRUG (IMMUNOASSAY) - COMPREHENSIVE DRUG SCREEN W/O REFLEX 2025-04-07 01:53:00 Sapna Quiroz [facility] FENTANYL (IMMUNOASSAY) 2025-04-07 01:53:00 Sapna Quiroz [facility] CT TRAUMA HEAD WO CONTRAST 2025-04-07 00:14:57 Sapna Quiroz [facility] COMP. METABOLIC PANEL ([id number]) 2025-04-06 22:45:00 Sapna Quiroz [facility] VALPROIC ACID, TOTAL 2025-04-06 22:45:00 Sapna Quiroz [facility] ETHANOL 2025-04-06 22:45:00 Sapna Quiroz [facility] CBC WITH DIFF 2025-04-06 22:45:00 Sapna Quiroz [facility] LACTIC ACID WITH 2 HOUR REFLEX 2025-04-06 22:45:00 Sapna Quiroz [facility] LIPID PANEL 2025-04-05 00:00:00 Cynthia Garcia - External POCT GLUCOSE (AUTOMATED) 2025-02-19 17:39:00 Yessy [facility] POCT GLUCOSE (AUTOMATED) 2025-02-19 14:05:00 Yessy [facility] POCT GLUCOSE (AUTOMATED) 2025-02-19 02:34:00 Yessy [facility] POCT GLUCOSE (AUTOMATED) 2025-02-18 21:36:00 Yessy [facility] TRANSTHORACIC ECHO (TTE) COMPLETE W/ CONTRAST 2025-02-18 21:28:22 Stevie Blackwood [facility] POCT GLUCOSE (AUTOMATED) 2025-02-18 18:23:00 Yessy [facility] POCT GLUCOSE (AUTOMATED) 2025-02-18 17:17:00 Yessy [facility] POCT GLUCOSE (AUTOMATED) 2025-02-18 13:16:[address] [facility] 2025-02-18 10:29:[address] [facility] MAGNESIUM 2025-02-18 10:29:[address] [facility] COMP. METABOLIC PANEL (72562) 2025-02-18 10:29:[address] [facility] CBC WITH DIFF 2025-02-18 10:29:[address] [facility] POCT GLUCOSE (AUTOMATED) 2025-02-18 00:19:00 Yessy [facility] ELECTROENCEPHALOGRAM 2025-02-18 00:00:00 [facility] 2025-02-17 23:03:00 Geraldo Mayer [facility] HB ECG ROUTINE & RHYTHM STRIP 2025-02-17 21:45:15 Charlotte [facility] URINE DRUG (IMMUNOASSAY) - COMPREHENSIVE DRUG SCREEN 2025-02-17 20:34:[facility]25-[facility]-17 20:[facility] POCT GLUCOSE (AUTOMATED) 2025-02-17 20:26:00 Yessy [facility] XR HIPS 2 VW BILATERAL 2025-02-17 19:15:[address] [facility] POCT GLUCOSE (AUTOMATED) 2025-02-17 16:40:00 Yessy [facility] LACTIC ACID WHOLE BLOOD 2025-02-17 15:20:00 Charlotte [facility] CT HEAD WO CONTRAST 2025-02-17 14:35:01 Charlotte [facility] POCT GLUCOSE (AUTOMATED) 2025-02-17 12:38:00 Ethan Muñoz [facility] XR CHEST 1 VW 2025-02-17 11:46:19 [facility] AMMONIA, PLASMA 2025-02-17 11:41:00 [facility], [facility] FOLATE 2025-02-17 11:41:00 [facility] VALPROIC ACID, FREE 2025-02-17 11:41:00 [facility] GLYCOSYLATED HEMOGLOBIN (A1C) 2025-02-17 11:41:00 [facility] N-TERMINAL PRO-BNP 2025-02-17 11:41:[address] [facility] [address] CERVICAL SPINE WO CONTRAST 2025-02-17 11:21:31 [facility] PHOSPHORUS 2025-02-17 10:48:00 [facility] CREATINE KINASE 2025-02-17 10:48:00 [facility], [facility] MAGNESIUM 2025-02-17 10:48:00 [facility] VITAMIN B12, LEVEL 2025-02-17 10:48:00 [facility] FREE T4 2025-02-17 10:48:00 [facility] THYROID STIMULATING HORMONE 2025-02-17 10:48:00 [facility] HEPATIC FUNCTION PANEL (04971) (ALB,T.PRO,BILI T,BU/BC,ALT,AST,ALK PHOS) 2025-02-17 10:48:00 [facility] BASIC METABOLIC PANEL (NA, K , CL, CO2, GLUCOSE, BUN, CREATININE, CA) 2025-02-17 10:48:00 [facility], [facility] ETHANOL 2025-02-17 10:48:00 [facility] CBC WITH DIFF 2025-02-17 10:48:00 [facility] PROTHROMBIN TIME / INR 2025-02-17 10:48:00 [facility] DAVID 2025-02-17 10:48:00 [facility] 2025-02-17 00:00[facility]25-02-13 22:14[facility]MUNOASSAY) - COMPREHENSIVE DRUG SCREEN W/O REFLEX 2025-02-13 22:14:00 Megan Rondon [facility] FENTANYL (IMMUNOASSAY) 2025-02-13 22:14:00 [facility] COMP. METABOLIC PANEL ([id number]) 2025-02-13 19:28:00 [facility] VAL[facility], TOTAL 2025-02-13 19:28:00 [facility]con [facility] ETHANOL 2025-02-13 19:28:00 Alcon [facility] CBC WITH DIFF 2025-02-13 19:28:00 Alcon [facility] CRITICAL CARE 2025-02-13 18:38:00 Alcon [facility] CBC WITH DIFFERENTIAL 2025-02-11 00:00:00 Cynthia Garcia - External TSH RFX ON ABNORMAL TO FREE T4 2025-02-11 00:00:00 Cynthia Garcia - External HEMOGLOBIN (HB) A1C WITH EAG 2025-02-10 00:00:00 Cynthia Garcia - External COMP. METABOLIC PANEL (14) 2025-02-10 00:00:00 Cynthia Garcia - External B-TYPE NATRIURETIC PEPTIDE 2025-02-10 00:00:00 Cynthia Garcia - External TOXASSURE FLEX 15 URINE 2025-02-10 00:00:00 Cynthia Garcia - External POCT Glucose 2025-02-09 00:00:00 [facility] [employer] POC GLUCOSE UNSOLICITED RESULTS 2025-02-07 12:28:00 Last Siegel [facility] Epic POC GLUCOSE UNSOLICITED RESULTS 2025-02-07 07:49:00 Last Siegel [facility] Epic POC GLUCOSE UNSOLICITED RESULTS 2025-02-06 20:53:00 Last Siegel [facility] POTASSIUM LEVEL 2025-02-06 13:20:00 Manuel Harding [facility] TRANSTHORACIC ECHO (TTE) COMPLETE W/ CONTRAST 2025-02-06 12:23:00 Judy Resendiz [facility] XR ABDOMEN 1 VIEW 2025-02-06 12:10:00 Lorelei Ahmadi [facility] CT BRAIN WO IV CONTRAST 2025-02-06 08:12:46 Sanjay Hutchins [facility] EEG CONTINUOUS MONITORING 2025-02-06 03:27:00 Manuel Harding [facility] ECG 12-LEAD 2025-02-06 01:10:00 Jocy Last [facility] COMPREHENSIVE METABOLIC PANEL 2025-02-06 00:28:00 Judy Resendiz [facility] MAGNESIUM LEVEL 2025-02-06 00:28:00 Manuel Harding [facility] PHOSPHORUS LEVEL 2025-02-06 00:28:00 Manuel Harding [facility] COMPLETE BLOOD COUNT W/DIFF AND PLATELET 2025-02-06 00:28:00 Judy Resendiz [facility] THYROID STIMULATING HORMONE W/ REFLEX FREE T4 2025-02-06 00:28:00 Manuel Harding [facility] TROPONIN I HIGH SENSITIVITY (SINGLE ORDER) 2025-02-06 00:28:00 Manuel Harding [facility] COMPLETE BLOOD COUNT 2025-02-06 00:28:00 Judy Resendiz [facility] AUTOMATED DIFFERENTIAL 2025-02-06 00:28:00 Judy Resendiz [facility] CT ANGIOGRAM BRAIN NECK 2025-02-05 23:49:22 Kassi Sanchez [facility] CT BRAIN WO IV CONTRAST 2025-02-05 23:49:22 Kassi Sanchez [facility] XR CHEST 1 VIEW 2025-02-05 19:33:45 Marsha Diamond [facility] XR CHEST 1 VIEW 2025-02-05 18:52:35 Kassi Sanchez [facility] ETHANOL LEVEL 2025-02-05 18:51:00 Daniel, Kassi [facility] BLOOD GAS, VENOUS 2025-02-05 18:51:00 Daniel, Kassi [facility] MAGNESIUM LEVEL 2025-02-05 18:51:00 Daniel, Kassi [facility] PHOSPHORUS LEVEL 2025-02-05 18:51:00 Daniel, Kassi [facility] HCG TOTAL (QUANTITATIVE) 2025-02-05 18:51:00 Daniel, Kassi [facility] COMPLETE BLOOD COUNT W/DIFF AND PLATELET 2025-02-05 18:51:00 Daniel, Kassi [facility] LACTIC ACID WITH 2 HOUR REFLEX 2025-02-05 18:51:00 Daniel, Kassi [facility] COMPLETE BLOOD COUNT 2025-02-05 18:51:00 Daniel, Kassi [facility] AUTOMATED DIFFERENTIAL 2025-02-05 18:51:00 Daniel, Kassi [facility] BASIC METABOLIC PANEL 2025-02-05 18:51:00 Daniel, Kassi [facility] HEPATIC FUNCTION PANEL 2025-02-05 18:51:00 Daniel, Kassi [facility] ECG 12-LEAD 2025-02-05 18:39:47 Promise Alfaro [facility] NM CRITICAL CARE ILL/INJURED PATIENT INIT 30-74 MIN 2025-02-05 18:28:00 Promise Alfaro [facility] UA with culture if indicated 2025-02-05 00:00:00 [facility] Drug Screen Urine (8 Drugs) 2025-02-05 00:00:00 [facility] DRAINAGE OF SPINAL CANAL, PERCUTANEOUS APPROACH, D 2024-10-24 00:00:00 KYRPO [facility] MONITORING OF FOOD SERVICE REPRESENTATIVE ELECTR ACTIVITY, GEAR CUTTER APPROACH 2024-10-24 00:00:00 [id number] [facility] CT BRAIN WO IV CONTRAST 2024-10-08 15:35:00 Jose Davison [facility] BASIC METABOLIC PANEL 2024-10-08 15:15:00 Jose Davison [facility] HEPATIC FUNCTION PANEL 2024-10-08 15:15:00 Jose Davison [facility] VALPROIC ACID LEVEL 2024-10-08 15:15:00 Laney, Jose Tobar [facility] BLOOD GAS, VENOUS 2024-10-08 15:15:00 Laney, Jose Tobar [facility] MAGNESIUM LEVEL 2024-10-08 15:15:00 Laney, Jose Tobar [facility] PHOSPHORUS LEVEL 2024-10-08 15:15:00 Laney, Jose Tobar [facility] COMPLETE BLOOD COUNT W/DIFF AND PLATELET 2024-10-08 15:15:00 Laney, Jose Tobar [facility] COMPLETE BLOOD COUNT 2024-10-08 15:15:00 Laney, Jose Tobar [facility] AUTOMATED DIFFERENTIAL 2024-10-08 15:15:00 Laney, Jose Tobar [facility] UA with culture if indicated 2024-10-08 00:00:00 [facility] ECG 12 lead 2024-10-08 00:00:[address] [facility] [address] brain wo IV contrast 2024-08-24 00:00:00 [facility] XR FEMUR 2+ VW RIGHT 2024-08-10 10:28:08 Dipak Colindres [facility] XR HIP 2-3 VIEWS RIGHT 2024-08-10 10:27:46 Dipak Colindres [facility] UA WITH CULTURE IF INDICATED 2024-08-10 09:51:00 Dipak Colindres [facility] VALPROIC ACID LEVEL 2024-08-10 08:31:00 Prakash Eckert [facility] XR CHEST 1 VIEW 2024-08-10 07:18:37 Dipak Colindres [facility] XR PELVIS 1-2 VIEWS 2024-08-10 07:18:15 Dipak Colindres [facility] CT BRAIN WO IV CONTRAST 2024-08-10 06:06:00 Dipak Colindres [facility] CT CERVICAL SPINE WO IV CONTRAST 2024-08-10 06:06:00 Dipak Colindres [facility] BASIC METABOLIC PANEL 2024-08-10 05:51:00 Dipak Colindres [facility] HEPATIC FUNCTION PANEL 2024-08-10 05:51:00 Dipak Colindres [facility] MAGNESIUM LEVEL 2024-08-10 05:51:00 Dipak Colindres [facility] PHOSPHORUS LEVEL 2024-08-10 05:51:00 Jens Dipak Dixon [facility] TYPE AND SCREEN 2024-08-10 05:51:00 Jens Dipak Dixon [facility] COMPLETE BLOOD COUNT W/DIFF AND PLATELET 2024-08-10 05:51:00 Jens Dipak Dixon [facility] THROMBOELASTOGRAPH RAPID 2024-08-10 05:51:00 Jens Dipak Dixon [facility] COMPLETE BLOOD COUNT 2024-08-10 05:51:00 Jens Dipak Dixon [facility] AUTOMATED DIFFERENTIAL 2024-08-10 05:51:00 Jens Dipak Dixon [facility] POC GLUCOSE UNSOLICITED RESULTS 2024-08-10 05:33:00 Brooklynn Paige [facility] ECG 12 lead (arrhythmia) 2024-08-10 00:00:00 [facility] Urine Culture 2024-08-10 00:00:00 [facility] LACTIC ACID WHOLE BLOOD 2024-04-03 01:59:00 Tammy Chrissy [facility] BASIC METABOLIC PANEL (NA, K , CL, CO2, GLUCOSE, BUN, CREATININE, CA) 2024-04-03 01:58:00 Tammy Chrissy [facility] CBC WITH DIFF 2024-04-03 01:58:00 Tammy [facility] N-TERMINAL PRO-BNP 2024-04-03 01:58:00 Tam[facility] EKG-12 LEAD 2024-01-13 04:42:14 Radha Wyatt [facility] TROPONIN I 2024-01-13 03:20:00 Radha Wyatt [facility] COMP. METABOLIC PANEL (93703) 2024-01-13 03:20:00 Radha Wyatt [facility] CBC WITH DIFF 2024-01-13 03:20:00 Radha Wyatt [facility] TRANSTHORACIC ECHO (TTE) LIMITED W/ DOPPLER, COLOR AND CONTRAST 2024-01-10 13:07:00 Darrick Fry [facility] MAGNESIUM 2024-01-10 09:16:00 Darrick Fyr [facility] TROPONIN I 2024-01-10 09:16:00 Darrick Fry [facility] BASIC METABOLIC PANEL (NA, K , CL, CO2, GLUCOSE, BUN, CREATININE, CA) 2024-01-10 09:16:00 Darrick Fry [facility] LIPID PANEL ([id number])(TOTAL CHOLESTEROL, TRIGLYCERIDES, HDL) 2024-01-10 09:16:00 Darrick Fry [facility] CBC WITH DIFF 2024-01-10 09:16:00 Darrick Fry [facility] PROTHROMBIN TIME / INR 2024-01-10 09:16:00 Darrick Fry [facility] ACTIVATED PARTIAL THRMPLAS DAVID 2024-01-10 09:16:00 Darrick Fry [facility] N-TERMINAL PRO-BNP 2024-01-10 09:16:00 Darrick Fry [facility] PHOSPHORUS 2024-01-10 04:58:00 Darrick Fry [facility] BLOOD CULTURE SCREEN 2024-01-10 02:39:00 Alfonso Alvarado [facility] BLOOD CULTURE SCREEN 2024-01-10 02:20:00 Alfonso Alvarado [facility] LACTIC ACID WHOLE BLOOD 2024-01-10 01:52:00 Alfonso Alvarado [facility] CT CHEST PULMONARY ANGIOGRAM 2024-01-09 23:59:01 Abundio [facility] XR CHEST 1 VW 2024-01-09 21:49:00 bAundio [facility] TROPONIN I 2024-01-09 21:39:00 Abundio [facility] COMP. METABOLIC PANEL ([id number]) 2024-01-09 21:39:00 [facility] CBC WITH DIFF 2024-01-09 21:39:00 Abundio [facility] D-DIMER 2024-01-09 21:39:00 Abundio [facility] N-TERMINAL PRO-BNP 2024-01-09 21:39:00 Olena Doyle [facility] HB ECG ROUTINE & RHYTHM STRIP 2024-01-09 21:13[facility]02 [facility] 2023-12-15 12:43:00 Reema [facility] MAGNESIUM 2023-12-15 10:26:00 Reema [facility] TROPONIN I 2023-12-15 10:26:00 Reema [facility] BASIC METABOLIC PANEL (NA, K , CL, CO2, GLUCOSE, BUN, CREATININE, CA) 2023-12-15 10:26:00 Reema [facility] CBC WITH DIFF 2023-12-15 10:26:00 Daria [facility] N-TERMINAL PRO-BNP 2023-12-15 10:26:00 Reema [facility] TROPONIN I 2023-12-15 03:21:00 Reema [facility] FREE T4 2023-12-15 03:21:00 Reema [facility] DIGOXIN 2023-12-15 03:21:00 Daria [facility] POCT GLUCOSE (AUTOMATED) 2023-12-15 00:56:00 Reema [facility] TROPONIN I 2023-12-14 21:05:00 Singer [facility] THYROID STIMULATING HORMONE 2023-12-14 21:05:00 Reema [facility] FREE T3 2023-12-14 21:05:00 Reema [facility] XR CHEST 1 VW 2023-12-14 19:25:00 Singer [facility] TROPONIN I 2023-12-14 19:19:00 Singer [facility] COMP. METABOLIC PANEL ([id number]) 2023-12-14 19:19:00 Singer [facility] CBC WITH DIFF 2023-12-14 19:19:00 Singer [facility] D-DIMER 2023-12-14 19:19:00 Mj Bryan [facility] N-TERMINAL PRO-BNP 2023-12-14 19:19:00 Mj Bryan [facility] EKG-12 LEAD 2023-12-14 18:38:57 Tal Benavidez [facility] POCT GLUCOSE (AUTOMATED) 2023-12-03 21:23:00 Connor Renee [facility] BASIC METABOLIC PANEL (NA, K , CL, CO2, GLUCOSE, BUN, CREATININE, CA) 2023-12-03 17:58:00 Mukesh Tabor [facility] POCT GLUCOSE (AUTOMATED) 2023-12-03 16:51:00 [facility] POCT GLUCOSE (AUTOMATED) 2023-12-03 13:00:00 Connor [facility] MAGNESIUM 2023-12-03 09:21:00 [facility] ([id number]) (ALB,T.PRO,BILI T,BU/BC,ALT,AST,ALK PHOS) 2023-12-03 09:21:00 Ginny Mariaelena [facility] BASIC METABOLIC PANEL (NA, K , CL, CO2, GLUCOSE, BUN, CREATININE, CA) 2023-12-03 09:21:00 Ginny Mariaelena [facility] AC PANEL 21 + LACTIC ACID 2023-12-03 01:45:00 Ginny Mariaelena [facility] MRSA / MSSA SCREEN BY RED COKER 2023-12-03 01:45:00 Mariaelena Gross [facility] CT CHEST PULMONARY ANGIOGRAM 2023-12-02 19:32:14 Connor [facility] XR CHEST 1 VW 2023-12-02 19:04:00 Connor Renee [facility] BLOOD CULTURE SCREEN 2023-12-02 18:53:00 Connor Rene[facility] TROPONIN I 2023-12-02 18:53:00 Connor Rene[facility] COMP. METABOLIC PANEL ([id number]) 2023-12-02 18:53:00 Connor Rene[facility] CBC WITH DIFF 2023-12-02 18:53:00 Connor [facility] RAPID INFLUENZA A/B 2023-12-02 18:53:00 Connor [facility] N-TERMINAL PRO-BNP 2023-12-02 18:53:00 Connor Renee [facility] COVID-19 (ID NOW RAPID TESTING) 2023-12-02 18:53:00 Connor Renee [facility] BLOOD CULTURE SCREEN 2023-12-02 18:49:00 Connor Renee [facility] AC ABG + LACTIC ACID 2023-12-02 18:26:00 Connor Renee [facility] HB ECG ROUTINE & RHYTHM STRIP 2023-12-02 18:06:10 Connor Renee [facility] POCT GLUCOSE (AUTOMATED) 2023-11-28 16:40:00 Cr Fry [facility] PHOSPHORUS 2023-11-28 09:22:00 Leander [facility] MAGNESIUM 2023-11-28 09:22:00 Leander [facility] COMP. METABOLIC PANEL ([id number]) 2023-11-28 09:22:00 Leander [facility] CBC WITH DIFF 2023-11-28 09:22:00 Leander [facility] N-TERMINAL PRO-BNP 2023-11-28 09:22:00 Torrey Baez [facility] POCT GLUCOSE (AUTOMATED) 2023-11-28 01:31:00 Lorenzo Ventura [facility] POCT GLUCOSE (AUTOMATED) 2023-11-27 21:45:00 Lorenzo Ventura [facility] POCT GLUCOSE (AUTOMATED) 2023-11-27 16:30:00 Lorenzo Hemrosalie [facility] POCT GLUCOSE (AUTOMATED) 2023-11-27 12:39:00 Lorenzo Ventura [facility] LACTIC ACID WHOLE BLOOD 2023-11-27 06:35:00 Leander [facility] MAGNESIUM 2023-11-27 06:34:00 Tabor, [facility] COMP. METABOLIC PANEL ([id number]) 2023-11-27 06:34:00 Leander [facility] URINE DRUG (IMMUNOASSAY) - COMPREHENSIVE DRUG SCREEN 2023-11-27 03:59:00 Leander [facility] POCT GLUCOSE (AUTOMATED) 2023-11-27 02:25:00 Lorenzo Ventura [facility] CT HEAD WO CONTRAST 2023-11-26 21:56:31 Tabor [facility] MAGNESIUM 2023-11-26 21:32:00 Tabor, [facility] COMP. METABOLIC PANEL ([id number]) 2023-11-26 21:32:00 Leander [facility] POCT GLUCOSE (AUTOMATED) 2023-11-26 21:11:00 Lorenzo Ventura [facility] VALPROIC ACID, FREE 2023-11-26 18:07:00 Tabor [facility] KEPPRA (LEVETIRACETAM) 2023-11-26 18:07:00 Tabor [facility] LACTIC ACID WHOLE BLOOD 2023-11-26 18:07:00 Leander [facility] POCT GLUCOSE (AUTOMATED) 2023-11-26 17:05:00 Lorenzo Ventura [facility] MAGNESIUM 2023-11-26 13:28:00 Raghu Castellanos [facility] VITAMIN B12, LEVEL 2023-11-26 13:28:00 Tabor [facility] FOLATE 2023-11-26 13:28:00 Tabor [facility] COMP. METABOLIC PANEL ([id number]) 2023-11-26 13:28:00 Raghu Castellanos [facility] CBC WITH DIFF 2023-11-26 13:28:00 Tabor [facility] LACTIC ACID WHOLE BLOOD 2023-11-26 09:52:00 Robinson Shin [facility] POCT GLUCOSE (AUTOMATED) 2023-11-26 02:13:00 Lorenzo Ventura [facility] LACTIC ACID WHOLE BLOOD 2023-11-26 00:53:00 Raghu Castellanos [facility] ELECTROENCEPHALOGRAM 2023-11-26 00:00:00 Leander [facility] POCT GLUCOSE (AUTOMATED) 2023-11-25 20:59:00 Lorenzo Ventura [facility] LACTIC ACID WHOLE BLOOD 2023-11-25 20:56:00 Raghu Castellanos [facility] MAGNESIUM 2023-11-25 20:55:00 Raghu Castellanos [facility] COMP. METABOLIC PANEL ([id number]) 2023-11-25 20:55:00 Raghu Castellanos [facility] POCT GLUCOSE (AUTOMATED) 2023-11-25 16:58:00 Lorenzo Ventura [facility] POCT GLUCOSE (AUTOMATED) 2023-11-25 13:04:00 Lorenzo Ventura [facility] LACTIC ACID WHOLE BLOOD 2023-11-25 09:25:00 Jessica [facility] MAGNESIUM 2023-11-25 09:24:00 Raghu Castellanos [facility] COMP. METABOLIC PANEL ([id number]) 2023-11-25 09:24:00 Jessica [facility] CBC WITH DIFF 2023-11-25 09:24:00 Leander [facility] MAGNESIUM 2023-11-25 04:52:00 Leander [facility] COMP. METABOLIC PANEL ([id number]) 2023-11-25 04:52:00 Leander [facility] LACTIC ACID WHOLE BLOOD 2023-11-25 04:52:00 Leander [facility] POCT GLUCOSE (AUTOMATED) 2023-11-25 03:00:00 Lorenzo Ventura [facility] TROPONIN I 2023-11-25 02:59:00 Jessica [facility] COMP. METABOLIC PANEL ([id number]) 2023-11-25 02:59:00 Jessica [facility] HIV 1/2 AG-AB WITH REFLEX 2023-11-25 02:59:00 Nestor Lopez [facility] CT ABDOMEN PELVIS W CONTRAST 2023-11-24 22:24:00 Leander [facility] POCT GLUCOSE (AUTOMATED) 2023-11-24 21:21:00 Lorenzo Ventura [facility] MAGNESIUM 2023-11-24 21:08:00 Leander [facility] COMP. METABOLIC PANEL ([id number]) 2023-11-24 21:08:00 Tabor [facility] LACTIC ACID WHOLE BLOOD 2023-11-24 21:08:00 Nestor Lopez [facility] POCT GLUCOSE (AUTOMATED) 2023-11-24 17:43:00 Lorenzo Ventura [facility] POCT GLUCOSE (AUTOMATED) 2023-11-24 17:43:00 Lorenzo Ventura [facility] MAGNESIUM 2023-11-24 15:47:00 Leander [facility] COMP. METABOLIC PANEL ([id number]) 2023-11-24 15:47:00 Tabor, [facility] ACTIVATED PARTIAL THRMPLAS DAVID 2023-11-24 15:47:00 Uli [facility] LACTIC ACID WHOLE BLOOD 2023-11-24 15:47:00 Tabor, [facility] MAGNESIUM 2023-11-24 15:47:00 Tabor, [facility] COMP. METABOLIC PANEL ([id number]) 2023-11-24 15:47:00 Tabor, [facility] ACTIVATED PARTIAL THRMPLAS DAVID 2023-11-24 15:47:00 Uli [facility] LACTIC ACID WHOLE BLOOD 2023-11-24 15:47:00 Leander [facility] POCT GLUCOSE (AUTOMATED) 2023-11-24 12:33:00 Lorenzo Ventura [facility] POCT GLUCOSE (AUTOMATED) 2023-11-24 12:33:00 Lorenzo Ventura [facility] MAGNESIUM 2023-11-24 10:03:00 Tabor [facility] COMP. METABOLIC PANEL ([id number]) 2023-11-24 10:03:00 Tabor, [facility] CBC WITH DIFF 2023-11-24 10:03:00 Tabor, [facility] LACTIC ACID WITH 3 HOUR REFLEX 2023-11-24 10:03:00 Tabor, [facility] MAGNESIUM 2023-11-24 10:03:00 Tabor, [facility] COMP. METABOLIC PANEL ([id number]) 2023-11-24 10:03:00 Tabor, [facility] CBC WITH DIFF 2023-11-24 10:03:00 Tabor, [facility] LACTIC ACID WITH 3 HOUR REFLEX 2023-11-24 10:03:00 Tabor, [facility] ACTIVATED PARTIAL THRMPLAS DAVID 2023-11-24 06:13:00 Uli [facility] ACTIVATED PARTIAL THRMPLAS DAVID 2023-11-24 06:13:00 [facility] 2023-11-24 03:15:00 Lorenzo Ventura [facility] POCT GLUCOSE (AUTOMATED) 2023-11-24 03:15:00 Lorenzo Ventura [facility] ACTIVATED PARTIAL THRMPLAS DAVID 2023-11-23 23:09:00 Uli [facility] ACTIVATED PARTIAL THRMPLAS DAVID 2023-11-23 23:09:00 [facility] 2023-11-23 21:28:00 Lorenzo Ventura [facility] POCT GLUCOSE (AUTOMATED) 2023-11-23 21:28:00 Lorenzo Ventura [facility] CATH PROCEDURE LOG 2023-11-23 20:38:36 Lisandra [facility] CATH PROCEDURE LOG 2023-11-23 20:38:36 Lisandra [facility] CARDIAC CATHETERIZATION 2023-11-23 20:11:00 [facility]23-11-23 20:11:00 Lisandra [facility] CARDIAC CATHETERIZATION 2023-11-23 [facility]23-11-23 20:11:00 Lisandra [facility] POCT GLUCOSE (AUTOMATED) 2023-11-23 17:18:00 Lorenzo Urielrosalie [facility] POCT GLUCOSE (AUTOMATED) 2023-11-23 17:18:00 Lorenzo Hemrosalie [facility] POCT GLUCOSE (AUTOMATED) 2023-11-23 16:50:00 Lorenzo Hemrosalie [facility] POCT GLUCOSE (AUTOMATED) 2023-11-23 16:50:00 Lorenzo [facility] ACTIVATED PARTIAL THRMPLAS DAVID 2023-11-23 15:13:00 Uli [facility] ACTIVATED PARTIAL THRMPLAS DAVID 2023-11-23 15:13:00 Uli [facility] LACTIC ACID WHOLE BLOOD 2023-11-23 15:12:00 Aleida [facility] LACTIC ACID WHOLE BLOOD 2023-11-23 15:12:00 Aleida [facility] POCT GLUCOSE (AUTOMATED) 2023-11-23 12:47:00 [facility] POCT GLUCOSE (AUTOMATED) 2023-11-23 12:47:00 Lorenzo Ventura [facility] MAGNESIUM 2023-11-23 07:52:00 Louise [facility] HEPATIC FUNCTION PANEL ([id number]) (ALB,T.PRO,BILI T,BU/BC,ALT,AST,ALK PHOS) 2023-11-23 07:52:00 Mukesh Tabor [facility] BASIC METABOLIC PANEL (NA, K , CL, CO2, GLUCOSE, BUN, CREATININE, CA) 2023-11-23 07:52:00 Louise [facility] CBC WITH DIFF 2023-11-23 07:52:00 Louise [facility] ACTIVATED PARTIAL THRMPLAS DAVID 2023-11-23 07:52:00 Uli, [facility] LACTIC ACID WHOLE BLOOD 2023-11-23 07:52:00 [facility]-11-23 07:52:00 Louise [facility] HEPATIC FUNCTION PANEL ([id number]) (ALB,T.PRO,BILI T,BU/BC,ALT,AST,ALK PHOS) 2023-11-23 07:52:00 Mukesh Tabor [facility] BASIC METABOLIC PANEL (NA, K , CL, CO2, GLUCOSE, BUN, CREATININE, CA) 2023-11-23 07:52:00 Louise [facility] CBC WITH DIFF 2023-11-23 07:52:00 Louise [facility] ACTIVATED PARTIAL THRMPLAS DAVID 2023-11-23 07:52:00 Uli [facility] LACTIC ACID WHOLE BLOOD 2023-11-23 07:52:00 Aleida [facility] LACTIC ACID WHOLE BLOOD 2023-11-23 05:00:00 Aleida [facility] LACTIC ACID WHOLE BLOOD 2023-11-23 05:00:00 Aleida [facility] LACTIC ACID WHOLE BLOOD 2023-11-23 03:12:00 Aleida [facility] LACTIC ACID WHOLE BLOOD 2023-11-23 03:12:00 Aleida [facility] LACTIC ACID WHOLE BLOOD 2023-11-23 00:57:00 Aleida [facility] LACTIC ACID WHOLE BLOOD 2023-11-23 00:57:00 Aleida [facility] POCT GLUCOSE (AUTOMATED) 2023-11-23 00:56:00 Lorenzo Ventura [facility] POCT GLUCOSE (AUTOMATED) 2023-11-23 00:56:00 Lorenzo Ventura [facility] LACTIC ACID WHOLE BLOOD 2023-11-22 23:49:00 Aleida [facility] LACTIC ACID WHOLE BLOOD 2023-11-22 23:49:00 Aleida [facility] POCT GLUCOSE (AUTOMATED) 2023-11-22 21:49:00 Lorenzo Ventura [facility] POCT GLUCOSE (AUTOMATED) 2023-11-22 21:49:00 Lorenzo Ventura [facility] LACTIC ACID WHOLE BLOOD 2023-11-22 21:41:00 Tabor [facility] LACTIC ACID WHOLE BLOOD 2023-11-22 21:41:00 Tabor [facility] POCT GLUCOSE (AUTOMATED) 2023-11-22 21:01:00 Lorenzo Ventura [facility] POCT GLUCOSE (AUTOMATED) 2023-11-22 21:01:00 Lorenzo Urielrosalie [facility] ACTIVATED PARTIAL THRMPLAS DAVID 2023-11-22 19:46:00 Uli [facility] LACTIC ACID WHOLE BLOOD 2023-11-22 19:46:00 Tabor, [facility] ACTIVATED PARTIAL THRMPLAS DAVID 2023-11-22 19:46:00 Cris Mcnally [facility] LACTIC ACID WHOLE BLOOD 2023-11-22 19:46:00 Tabor [facility] LACTIC ACID WHOLE BLOOD 2023-11-22 17:22:00 [facility] LACTIC ACID WHOLE BLOOD 2023-11-22 17:22:00 [facility] POCT GLUCOSE (AUTOMATED) 2023-11-22 17:00:00 Ignacio [facility] POCT GLUCOSE (AUTOMATED) 2023-11-22 17:00:00 [facility]REMITY ARTERIAL DUPLEX BILATERAL - BY VASCULAR LAB 2023-11-22 16:43:47 [facility] LOWER EXTREMITY ARTERIAL DUPLEX BILATERAL - BY VASCULAR LAB 2023-11-22 16:43:47 Fab[facility] TRANSTHORACIC ECHO (TTE) COMPLETE W/ CONTRAST 2023-11-22 15:50:00 [facility] (TTE) COMPLETE W/ CONTRAST 2023-11-22 15:50:00 Cris Mcnally [facility] US ABDOMEN LIMITED 2023-11-22 14:54:18 [facility] US [facility]BDOMEN LIMITED 2023-11-22 14:54:18 [facility] HB ECG ROUTINE & RHYTHM STRIP 2023-11-22 14:28:42 Louise [facility] HB ECG ROUTINE & RHYTHM STRIP 2023-11-22 14:28:42 Louise [facility] COMP. METABOLIC PANEL ([id number]) 2023-11-22 14:26:00 Uli [facility] IRON PANEL 2023-11-22 14:26:00 Uli [facility] LACTIC ACID WHOLE BLOOD 2023-11-22 14:26:00 [facility] COMP. METABOLIC PANEL ([id number]) 2023-11-22 14:26:00 Uli [facility] IRON PANEL 2023-11-22 14:26:00 Uli [facility] LACTIC ACID WHOLE BLOOD 2023-11-22 14:26:00 [facility] POCT GLUCOSE (AUTOMATED) 2023-11-22 13:26:00 Ignaico [facility] POCT GLUCOSE (AUTOMATED) 2023-11-22 13:26:00 Ignacio [facility] CT CHEST PULMONARY ANGIOGRAM 2023-11-22 13:10:36 Uli [facility] CT CHEST PULMONARY ANGIOGRAM 2023-11-22 13:10:36 Uli [facility] PHOSPHORUS 2023-11-22 11:45:00 Uli [facility] CREATINE KINASE 2023-11-22 11:45:00 Louise [facility] FERRITIN SERUM 2023-11-22 11:45:00 Uli [facility] TROPONIN I 2023-11-22 11:45:00 Uli [facility] LIPID PANEL ([id number])(TOTAL CHOLESTEROL, TRIGLYCERIDES, HDL) 2023-11-22 11:45:00 Uli [facility] CBC WITH DIFF 2023-11-22 11:45:00 Uli [facility] GLYCOSYLATED HEMOGLOBIN (A1C) 2023-11-22 11:45:00 Uli [facility] PHOSPHORUS 2023-11-22 11:45:00 Uli [facility] CREATINE KINASE 2023-11-22 11:45:00 Janeth Gil [facility] FERRITIN SERUM 2023-11-22 11:45:00 Uli [facility] TROPONIN I 2023-11-22 11:45:00 Uli [facility] LIPID PANEL ([id number])(TOTAL CHOLESTEROL, TRIGLYCERIDES, HDL) 2023-11-22 11:45:00 Uli [facility] CBC WITH DIFF 2023-11-22 11:45:00 Uli [facility] GLYCOSYLATED HEMOGLOBIN (A1C) 2023-11-22 11:45:00 Uli [facility] BLOOD CULTURE SCREEN 2023-11-22 09:37:00 Uli [facility] BLOOD CULTURE SCREEN 2023-11-22 09:37:00 Uli [facility] BLOOD CULTURE SCREEN 2023-11-22 09:36:00 Uli [facility] BLOOD CULTURE SCREEN 2023-11-22 09:36:00 Uli [facility] US LOWER EXTREMITY VEIN WITH COMPRESSION BILATERAL (ONLY FOR RULE OUT DVT) 2023-11-22 08:09:[address] [facility] LOWER EXTREMITY VEIN WITH COMPRESSION BILATERAL (ONLY FOR RULE OUT DVT) 2023-11-22 08:09:01 Uli [facility] LACTIC ACID WHOLE BLOOD 2023-11-22 08:03:00 Uli [facility] LACTIC ACID WHOLE BLOOD 2023-11-22 08:03:00 Uli [facility] MAGNESIUM 2023-11-22 08:02:00 Uli [facility] TROPONIN I 2023-11-22 08:02:00 Uli [facility] PROTHROMBIN TIME / INR 2023-11-22 08:02:00 Uli, [facility] D-DIMER 2023-11-22 08:02:00 Uli, [facility] ACTIVATED PARTIAL THRMPLAS DAVID 2023-11-22 08:02:00 Uli, [facility] PROCALCITONIN 2023-11-22 08:02:00 Uli, [facility] MAGNESIUM 2023-11-22 08:02:00 Uli, [facility] TROPONIN I 2023-11-22 08:02:00 Uli, [facility] PROTHROMBIN TIME / INR 2023-11-22 08:02:00 Uli, [facility] D-DIMER 2023-11-22 08:02:00 Uli, [facility] ACTIVATED PARTIAL THRMPLAS DAVID 2023-11-22 08:02:00 Uli, [facility] PROCALCITONIN 2023-11-22 08:02:00 Uli, [facility] XR SHOULDER 2+ VW RIGHT 2023-11-22 07:33:00 Uli, [facility] XR SHOULDER 2+ VW RIGHT 2023-11-22 07:33:00 Uli, [facility] URINALYSIS 2023-11-22 04:33:00 Megan Rondon [facility] URINE DRUG (IMMUNOASSAY) - COMPREHENSIVE DRUG SCREEN W/O REFLEX 2023-11-22 04:33:00 Megan Rondon [facility] URINALYSIS 2023-11-22 04:33:00 Megan Rondon [facility] URINE DRUG (IMMUNOASSAY) - COMPREHENSIVE DRUG SCREEN W/O REFLEX 2023-11-22 04:33:00 Megan Rondon [facility] PROTHROMBIN TIME / INR 2023-11-22 04:25:00 Megan Rondon [facility] ACTIVATED PARTIAL THRMPLAS DAVID 2023-11-22 04:25:00 Megan Rondon [facility] PROTHROMBIN TIME / INR 2023-11-22 04:25:00 Megan Rondon [facility] ACTIVATED PARTIAL THRMPLAS DAVID 2023-11-22 04:25:00 Megan Rondon [facility] CRITICAL CARE 2023-11-22 04:18:14 Megan Rondon [facility] CRITICAL CARE 2023-11-22 04:18:14 Megan Rondon [facility] FREE T4 2023-11-22 02:57:00 Megan Rondon [facility] THYROID STIMULATING HORMONE 2023-11-22 02:57:00 [facility]/B 2023-11-22 02:57:00 [facility] (ID NOW RAPID TESTING) 2023-11-22 02:57:00 [facility] COVID INTERPRETATION 2023-11-22 02:57:00 Megan Rondon [facility] FREE T4 2023-11-22 02:57:00 [facility]RO[facility] HORMONE 2023-11-22 02:57:00 [facility] RAPID INFLUENZA A/B 2023-11-22 02:57:00 Megan Rondon [facility] COVID-19 (ID NOW RAPID TESTING) 2023-11-22 02:57:00 [facility] COVID INTERPRETATION 2023-11-22 02:57:00 [facility] AMYL[facility] 2023-11-22 02:52:00 [facility] LIPASE 2023-11-22 02:52:00 [facility] TROPONIN I 2023-11-22 02:52:00 Megan Rondon [facility] COMP. METABOLIC PANEL ([id number]) 2023-11-22 02:52:00 Megan Rondon [facility] CBC WITH DIFF 2023-11-22 02:52:00 [facility] N-[facility]MINAL PRO-BNP 2023-11-22 02:52:00 Megan Rondon [facility] AMYLASE 2023-11-22 02:52:00 Megan Rondon [facility] LIPASE 2023-11-22 02:52:00 [facility] TROP[facility] 2023-11-22 02:52:00 Megan Rondon [facility] COMP. METABOLIC PANEL ([id number]) 2023-11-22 02:52:00 Megan Rondon [facility] CBC WITH DIFF 2023-11-22 02:52:00 Megan Rondon [facility] N-TERMINAL PRO-BNP 2023-11-22 02:52:00 Megan Rondon [facility] XR CHEST 1 VW 2023-11-22 02:34:13 Megan Rondon [facility] XR CHEST 1 VW 2023-11-22 02:34:13 Megan Rondon [facility] HB ECG ROUTINE & RHYTHM STRIP 2023-11-22 02:16:24 Megan Rondon [facility] RADIOLOGY DOCUMENTATION 2023-11-18 18:34:06 Doctor Unassigned, Jud [facility] RADIOLOGY DOCUMENTATION 2023-11-05 19:18:01 Doctor Unassigned, Jud [facility] POCT-GLUCOSE METER 2023-09-08 08:40:00 Bud [facility] CBC W/PLT COUNT & AUTO DIFFERENTIAL 2023-09-08 [facility]23-[facility]-08 [facility]23-09-08 04:16[facility]23-09-08 04:16[facility] W/[facility]T COUNT & AUTO DIFFERENTIAL 2023-09-08 04:16[facility] PO[facility]-GLUCOSE METER 2023-09-07 21:29:00 Bud [facility] XR KNEE 3 VIEWS LEFT 2023-09-07 19:21:02 Bud [facility] VENOUS DOPPLER LEGS BILATERAL 2023-09-07 12:45:00 [facility] CBC W/PLT COUNT & AUTO DIFFERENTIAL 2023-09-07 03:17[facility]00 [facility] 2023-09-07 03:17:00 Joshua [facility] MAGNESIUM 2023-09-07 03:17:00 Joshua [facility] PHOSPHORUS 2023-09-07 03:17[facility] W/[facility] & AUTO DIFFERENTIAL 2023-09-07 03:17:00 Joshua [facility] POCT-GLUCOSE METER 2023-09-06 21:17:00 Bud [facility] POCT-GLUCOSE METER 2023-09-06 18:37:00 Bud [facility] POCT-GLUCOSE METER 2023-09-06 13:16:00 Bud [facility] POCT-GLUCOSE METER 2023-09-06 08:21:00 Bud [facility] CBC W/PLT COUNT & AUTO DIFFERENTIAL 2023-09-06 04:49:00 Joshua [facility] BASIC METABOLIC PANEL 2023-09-06 04:49:00 Joshua [facility] MAGNESIUM 2023-09-06 04:49:00 Joshua [facility] PHOSPHORUS 2023-09-06 [facility] & AUTO DIFFERENTIAL 2023-09-06 04:49[facility]00 [facility] PO[facility]SE METER 2023-09-05 21:24:00 Bud [facility] MR BRAIN WITH & WITHOUT IV CONTRAST 2023-09-05 11:25:07 Sandi Aleman [facility] POCT-GLUCOSE METER 2023-09-05 08:10:00 Bud [facility] CBC W/PLT COUNT & AUTO DIFFERENTIAL 2023-09-05 04:44:00 [facility] 2023-09-05 04:44:00 Joshua [facility] MAGNESIUM 2023-09-05 04:44:00 [facility] 2023-09-05 04:44[facility]00 [facility] PO[facility]SE METER 2023-09-05 04:44:00 Lisandra [facility] CBC W/PLT COUNT & AUTO DIFFERENTIAL 2023-09-05 04:44:00 Joshua [facility] POCT-GLUCOSE METER 2023-09-04 21:38:00 [facility] 2023-09-04 15:42[facility]00 [facility] SARS-COV[facility]/INFLUENZA/RSV RT-PCR 2023-09-04 11:25:00 [facility] POCT-GLUCOSE METER 2023-09-04 10:53[facility]00 [facility] 2023-09-04 08:04:00 Sabas [facility] PROCALCITONIN 2023-09-04 06:56:00 [facility] IRON, TIBC, % SAT. (WITHOUT FERRITIN) 2023-09-04 06:56:00 [facility] FERRITIN 2023-09-04 06:56:00 [facility] BLOOD CULTURE 2023-09-04 06:37:00 Randall, [facility] MR LUMBAR SPINE WITHOUT IV CONTRAST 2023-09-04 05:47:25 [facility] MR THORACIC SPINE WITHOUT IV CONTRAST 2023-09-04 04:53:00 [facility] MR CERVICAL SPINE WITHOUT IV CONTRAST 2023-09-04 04:18:[address] [facility] CT THORACIC SPINE WITHOUT IV CONTRAST 2023-09-04 03:08:00 Randall [facility] CT LUMBAR SPINE WITHOUT IV CONTRAST 2023-09-04 03:08:00 Randall [facility] LACTIC ACID, VENOUS 2023-09-04 01:42:[facility] 2023-09-04 01:42:00 [facility] W/PLT COUNT & AUTO DIFFERENTIAL 2023-09-04 00:51:00 [facility] COMPREHENSIVE METABOLIC PANEL 2023-09-04 00:51:00 [facility] MAGNESIUM 2023-09-04 00:51:00 [facility] PHOSPHORUS 2023-09-04 00:51:00 [facility] PROTHROMBIN TIME/INR 2023-09-04 00:51:00 [facility] APTT 2023-09-04 00:51:00 [facility] B-TYPE NATRIURETIC FACTOR (BNP) 2023-09-04 00:51:00 [facility] URINALYSIS WITHOUT MICROSCOPIC 2023-09-04 00:51:00 [facility] RAPID DRUG SCREEN, URINE 2023-09-04 00:51:00 [facility] D-DIMER 2023-09-04 00:51:00 London Loyola [facility] FIBRINOGEN 2023-09-04 00:51:00 Jorge Pereira [facility] CBC W/PLT COUNT & AUTO DIFFERENTIAL 2023-09-04 00:51:00 [facility] EKG-SCANNED 2023-09-04 00:00:00 Provider, Default Scanning [facility] LACTIC ACID WHOLE BLOOD 2023-08-12 20:31:00 Mj [facility] COMP. METABOLIC PANEL (41865) 2023-08-12 20:29:00 Mj [facility] CBC WITH DIFF 2023-08-12 20:29:00 Mj [facility] CONSENT/REFUSAL FOR DIAGNOSI S AND TREATMENT 2023-08-12 19:43:16 Doctor Unassigned, Jud [facility] TRANSESOPHAGEAL ECHO 2023-06-16 11:05:00 Aydee Go [facility] T SPOT TB 2023-06-15 04:51:00 Lauren Blair [facility] FUNGITELL R B-D-GLUCAN WITH REFLEX TO TITER 2023-06-15 04:51:00 Lauren Blair [facility] ASPERGILLUS GALACTOMANNAN ANTIGEN 2023-06-15 04:51:00 Rossy [facility] Raul [facility] VANCOMYCIN LEVEL, TROUGH 2023-06-15 04:51:00 Kaylene Mendosa [facility] T-SPOT(R).TB (QUEST) 2023-06-15 04:27:00 Provider, Not In System [facility] T-SPOT(R).TB (QUEST) 2023-06-15 04:27:00 System, Provider Not In [facility] ECHO W CONTRAST & DOPPLER 2023-06-14 09:22:00 [facility] HEMOGLOBIN A1C 2023-06-14 04:08:00 Marianela Collazo [facility] CBC (HEMOGRAM ONLY) 2023-06-14 04:08:00 [facility] BASIC METABOLIC PANEL 2023-06-14 04:08:00 [facility] CRYPTOCOCCAL ANTIGEN 2023-06-13 17:21:00 Rossy [facility] Raul [facility] HC LAB HIV-1 AG W/HIV-1&2 AB 2023-06-13 17:21:00 Rossy [facility] Raul [facility] VENOUS DOPPLER ARM, LEFT 2023-06-13 17:20:00 Marianela Collazo [facility] LEGIONELLA ANTIGEN, URINE 2023-06-13 17:00:00 [facility] SPUTUM CULTURE + GRAM STAIN 2023-06-13 14:33:00 [facility] MR LUMBAR SPINE WITH & WITHOUT IV CONTRAST 2023-06-13 13:03:47 Burt Nelson [facility] ECG 12-LEAD 2023-06-13 11:47:02 [facility] ECG 12-LEAD 2023-06-13 11:47:02 Unknown, Hl7 Doctor [facility] MRSA SCREEN 2023-06-13 09:19:00 bAbi [facility] CBC W/PLT COUNT & AUTO DIFFERENTIAL 2023-06-13 06:03:00 [facility] COMPREHENSIVE METABOLIC PANEL 2023-06-13 06:03:00 [facility] PROTHROMBIN TIME/INR 2023-06-13 06:03:00 [facility] CREATINE KINASE (CK) 2023-06-13 06:03:00 Torrey [facility] CBC W/PLT COUNT & AUTO DIFFERENTIAL 2023-06-13 06:03:00 [facility] BLOOD CULTURE 2023-06-13 06:02:00 [facility] CBC W/PLT COUNT & AUTO DIFFERENTIAL 2023-06-02 04:41:00 Kimberley [facility] BASIC METABOLIC PANEL 2023-06-02 04:41:00 Kimberley [facility] MAGNESIUM 2023-06-02 04:41:00 Kimberley [facility] PHOSPHORUS 2023-06-02 04:41:00 Kimberley [facility] CBC W/PLT COUNT & AUTO DIFFERENTIAL 2023-06-02 04:41:00 Kimberley [facility] XR SPINE LUMBAR 1 VIEW 2023-06-01 10:31:00 [place] [facility] XR SPINE LUMBAR 1 VIEW 2023-06-01 09:46:00 [facility] LAMINECTOMY, SPINE, LUMBAR 2023-06-01 09:10:00 [facility] PROCEDURE W/ C-ARM 2023-06-01 09:10:00 [place] [facility] LAMINECTOMY, SPINE, LUMBAR 2023-06-01 07:30:00 [place] [facility] PROCEDURE W/ C-ARM 2023-06-01 07:30:00 [place] [facility] SCREEN, URINE 2023-06-01 04:33:00 Adam Garcia [facility] BASIC METABOLIC PANEL 2023-05-31 22:55:00 Dallas Gomez [facility] CBC W/PLT COUNT & AUTO DIFFERENTIAL 2023-05-31 22:55:00 Dallas Gomez [facility] PT/APTT 2023-05-31 22:55:00 Dallas Gomez [facility] CBC W/PLT COUNT & AUTO DIFFERENTIAL 2023-05-31 22:55:00 Dallas Gomez [facility] CT NECK SOFT TISSUE WITHOUT IV CONTRAST 2023-05-31 09:39:30 [facility] TYPE AND SCREEN, AUTOMATED 2023-05-31 09:13:[facility] BASIC METABOLIC PANEL 2023-05-29 06:43:00 [facility] CBC W/PLT COUNT & AUTO DIFFERENTIAL 2023-05-29 06:43:00 [facility] CBC W/PLT COUNT & AUTO DIFFERENTIAL 2023-05-29 06:43:00 [facility] XR SPINE CERVICAL 2 OR 3 VIEWS 2023-05-28 18:57:00 [facility] [place] FLUORO NON-SPECIFIC UP TO 1 HOUR 2023-05-28 10:48:00 Jose [facility] [place] FLUORO NON-SPECIFIC UP TO 1 HOUR 2023-05-28 10:07:00 [place] [facility] DISCECTOMY, SPINE, CERVICAL, ANTERIOR APPROACH, WITH FUSION 2023-05-28 08:15:00 [facility] INSERTION, HARDWARE, SPINAL 2023-05-28 08:15:00 [place] [facility] PROCEDURE, ALLOGRAFT, FOR SPINE SURGERY 2023-05-28 08:15:00 Jose Adam [facility] AUTOGRAFT FOR SPINE SURGERY 2023-05-28 08:15:00 Adam Garcia [facility] PROCEDURE W/ C-ARM 2023-05-28 08:15:00 Adam Garcia [facility] NEUROPHYSIOLOGIC MONITORING, INTRAOPERATIVE 2023-05-28 08:15:00 Adam Garcia [facility] PROCEDURE, USING OPERATING MICROSCOPE 2023-05-28 08:15:00 Adam Garcia [facility] HCG, QUANTITATIVE, 2023-05-28 07:42:00 Yue Bui [facility] TYPE AND SCREEN, AUTOMATED 2023-05-28 07:42:00 Quin Monet [facility] XR CHEST 1 VIEW PORTABLE / BEDSIDE 2023-04-01 15:32:16 Thomas Lozoya [facility] B-TYPE NATRIURETIC FACTOR (BNP) 2023-04-01 13:32:00 Thomas Lozoya [facility] ECHO W CONTRAST & DOPPLER 2023-03-31 20:18:[address] [facility] MR CERVICAL SPINE WITHOUT IV CONTRAST 2023-03-31 09:25:00 Edward Lewis [facility] CBC (HEMOGRAM ONLY) 2023-03-31 03:45[facility] 2023-03-31 03:45:[address] [facility] [facility] ARTERIAL DOPPLER LEGS BILATERAL 2023-03-30 15:45:[address] [facility] ARTERIAL (ALEISHA'S W/ DOPPLER) ONLY 2023-03-30 15:44:[address] [facility] ECG 12-LEAD 2023-03-30 13:06:[address] [facility] ECG 12-LEAD 2023-03-30 13:06:22 Unknown, Hl7 [facility] MR THORACIC SPINE WITHOUT IV CONTRAST 2023-03-30 12:29:58 [facility] MR LUMBAR SPINE WITHOUT IV CONTRAST 2023-03-30 11:58:00 Gloria Reyes [facility] EEG AWAKE AND DROWSY 2023-03-30 09:57:53 Liudmila Smart [facility] VALPROIC ACID LEVEL, TOTAL 2023-03-30 09:06:00 Liudmila Smart [facility] URINALYSIS W/ REFLEX URINE CULTURE 2023-03-30 03:54:00 Gloria Reyes [facility] CBC (HEMOGRAM ONLY) 2023-03-30 03:52:[address] [facility] COMPREHENSIVE METABOLIC PANEL 2023-03-30 03:52:[address] [facility] HEMOGLOBIN A1C 2023-03-30 03:52:[address] PT/APTT 2023-03-30 03:52:00 Thomas Lozoya [facility] EKG-SCANNED 2023-03-29 00:00:00 Provider, Default Scanning [facility] CT HEAD WO CONTRAST 2022-12-11 18:36:49 Alfonso Alvarado [facility] URINE DRUG (IMMUNOASSAY) - COMPREHENSIVE DRUG SCREEN 2022-12-11 17:13:00 Alfonso Alvarado [facility] URINALYSIS 2022-12-11 17:13:00 Alfonso Alvarado [facility] CT CHEST PULMONARY ANGIOGRAM 2022-12-11 16:26:39 Alfonso Alvarado [facility] MAGNESIUM 2022-12-11 14:57:00 Alfonso Alvarado [facility] COMP. METABOLIC PANEL ([id number]) 2022-12-11 14:57:00 Alfonso Alvarado [facility] D-DIMER 2022-12-11 14:15:00 Alfonso Alvarado [facility] XR CHEST 1 VW 2022-12-11 14:10:26 Alfonso Alvarado [facility] TROPONIN I 2022-12-11 14:02:00 Alfonso Alvarado [facility] CBC WITH DIFF 2022-12-11 14:02:00 Alfonso Alvarado [facility] N-TERMINAL PRO-BNP 2022-12-11 14:02:00 Alfonso Alvarado [facility] HB ECG ROUTINE & RHYTHM STRIP 2022-12-11 14:01:08 Alfonso Alvarado [facility] CONSENT/REFUSAL FOR DIAGNOSI S AND TREATMENT 2022-12-11 13:52:01 Doctor Unassigned, Jud [facility] ECG 12-LEAD 2022-08-03 05:03:32 Unknown, Hl7 Doctor [facility] ECG 12-LEAD 2022-08-03 05:03:32 Unknown, Hl7 [facility] LIPID PANEL 2022-08-02 21:14:00 [facility] TSH/FREE T4 IF INDICATED 2022-08-02 21:14:00 [facility] VITAMIN B12 2022-08-02 21:14:00 [facility] HEMOGLOBIN A1C 2022-08-02 21:14:00 [facility] COMPREHENSIVE METABOLIC PANEL 2022-08-02 21:14:00 [facility] CBC W/PLT COUNT & AUTO DIFFERENTIAL 2022-08-02 21:14:00 [facility] RPR 2022-08-02 21:14:00 [facility] HC LAB HIV-1 AG W/HIV-1&2 AB 2022-08-02 21:14:00 [facility] C-REACTIVE PROTEIN 2022-08-02 21:14:00 [facility] CBC W/PLT COUNT & AUTO DIFFERENTIAL 2022-08-02 21:14:00 [facility] EKG-SCANNED 2022-08-02 00:00:00 Provider, Default Scanning [facility] CT HEAD WO CONTRAST 2022-08-01 23:52:15 Dami Lowry [facility] GALV ONLY - INFLUENZA A B RS V PCR 2022-08-01 18:28:00 Letitia Chambers [facility] TRANSTHORACIC ECHO (TTE) COMPLETE W/ CONTRAST 2022-08-01 14:42:00 Kylee Diego [facility] MAGNESIUM 2022-08-01 10:42:00 [facility] BASIC METABOLIC PANEL (NA, K , CL, CO2, GLUCOSE, BUN, CREATININE, CA) 2022-08-01 10:42:00 Dami Lowry [facility] CBC WITH DIFF 2022-08-01 10:42:00 Essence [facility] N-TERMINAL PRO-BNP 2022-08-01 10:42:00 Kylee Diego [facility] POCT GLUCOSE (AUTOMATED) 2022-08-01 06:56:00 [facility] CRITICAL CARE 2022-07-31 22:31:36 [facility] URINALYSIS 2022-07-31 20:52:00 [facility] URINE DRUG (IMMUNOASSAY) - COMPREHENSIVE DRUG SCREEN W/O REFLEX 2022-07-31 20:52:00 [facility] XR CHEST 1 VW 2022-07-31 18:45:17 Megan Rondon [facility] LIPASE 2022-07-31 17:58:00 [facility] TROPONIN I 2022-07-31 17:58:00 [facility] COMP. METABOLIC PANEL ([id number]) 2022-07-31 17:58:00 [facility] CBC WITH DIFF 2022-07-31 17:58:00 [facility] PROTHROMBIN TIME / INR 2022-07-31 17:58:00 Al[facility] ACTIVATED PARTIAL THRMPLAS DAVID 2022-07-31 17:58:00 [facility] N-TERMINAL PRO-BNP 2022-07-31 17:58:00 [facility] & RHYTHM STRIP 2022-07-31 17:46:28 [facility] NOTICE OF PRIVACY PRACTICES 2022-07-31 17:35:38 Doctor Unassigned, Jud [facility] CONSENT/REFUSAL FOR DIAGNOSI S AND TREATMENT 2022-07-31 17:35:13 Doctor Unassigned, Jud [facility] PHOSPHORUS 2022-05-08 05:51:00 D'Tirado, Azeem [facility] MAGNESIUM 2022-05-08 05:51:00 Shefali Azeem [facility] BASIC METABOLIC PANEL (NA, K , CL, CO2, GLUCOSE, BUN, CREATININE, CA) 2022-05-08 05:51:00 Shefali [facility] CBC WITH DIFF 2022-05-08 05:51:00 Shefali Azeem [facility] BASIC METABOLIC PANEL (NA, K , CL, CO2, GLUCOSE, BUN, CREATININE, CA) 2022-05-07 07:09:00 John Cintron [facility] CBC WITH DIFF 2022-05-07 07:09:00 John Cintron [facility] POCT GLUCOSE (AUTOMATED) 2022-05-07 01:16:00 Brandyn Mcfarlane [facility] HB ABO GROUPING 2022-05-06 05:07:00 Ismael Dunn [facility] BASIC METABOLIC PANEL (NA, K , CL, CO2, GLUCOSE, BUN, CREATININE, CA) 2022-05-06 05:04:00 Shefali [facility] CBC WITH DIFF 2022-05-06 05:04:00 Shefali [facility] KEPPRA (LEVETIRACETAM) 2022-05-06 05:04:00 Shefali [facility] MR LUMBAR SPINE WO CONTRAST 2022-05-06 02:54:37 Ender Monet [facility] ELECTROENCEPHALOGRAM 2022-05-06 00:00:00 John Cintron [facility] BASIC METABOLIC PANEL (NA, K , CL, CO2, GLUCOSE, BUN, CREATININE, CA) 2022-05-05 07:57:00 Ismael Dunn [facility] CBC WITH DIFF 2022-05-05 07:57:00 Ismael Dunn [facility] PROTHROMBIN TIME / INR 2022-05-05 07:57:00 Ismael Dunn [facility] ACTIVATED PARTIAL THRMPLAS DAVID 2022-05-05 07:57:00 Temitopestalin Yarsani Nancy [facility] FIBRINOGEN 2022-05-05 07:57:00 Ismael Dunn [facility] EMERGENCY SERVICES AGREEMENT S AND AUTHORIZATIONS 2022-05-04 05:01:00 Doctor Unassigned, Jud [facility] VITAMIN D, 25-OH 2022-04-15 16:53:00 [place] [facility] MR THORACIC SPINE WO CONTRAST 2022-04-15 11:56:19 Harshil [facility] MR CERVICAL SPINE WO CONTRAST 2022-04-15 11:20:00 Harshil [facility] BASIC METABOLIC PANEL (NA, K , CL, CO2, GLUCOSE, BUN, CREATININE, CA) 2022-04-15 10:36:00 Charmaine Morataya [facility] TEST, URINE 2022-04-15 04:39:00 Harshil [facility] URINE DRUG (IMMUNOASSAY) - COMPREHENSIVE DRUG SCREEN 2022-04-15 04:39:00 Harshil [facility] URINALYSIS 2022-04-15 04:39:00 Harshil [facility] TRANSTHORACIC ECHO (TTE) COMPLETE W/ CONTRAST 2022-04-14 16:37:03 Harshil [facility] KEPPRA (LEVETIRACETAM) 2022-04-14 15:30:00 Harshil [facility] MAGNESIUM 2022-04-14 10:03:00 Harshil [facility] BASIC METABOLIC PANEL (NA, K , CL, CO2, GLUCOSE, BUN, CREATININE, CA) 2022-04-14 10:03:00 Harshil [facility] MR LUMBAR SPINE WO CONTRAST 2022-04-14 02:48:12 Harshil [facility] MR STROKE BRAIN WO CONTRAST 2022-04-14 02:29:00 H[address] [facility] [address] STROKE ANGIOGRAM HEAD 2022-04-13 18:40:00 Sapna Quiroz [facility] CT STROKE ANGIOGRAM NECK 2022-04-13 18:40:00 Sapna Quiroz [facility] CT STROKE HEAD WO CONTRAST 2022-04-13 18:36:00 Sapna Quiroz [facility] TROPONIN I 2022-04-13 18:17:00 Sapna Quiroz [facility] THYROID STIMULATING HORMONE 2022-04-13 18:17:00 Harshil [facility] BASIC METABOLIC PANEL (NA, K , CL, CO2, GLUCOSE, BUN, CREATININE, CA) 2022-04-13 18:17:00 Sapna Quiroz [facility] LIPID PANEL ([id number])(TOTAL CHOLESTEROL, TRIGLYCERIDES, HDL) 2022-04-13 18:17:00 Harshil [facility] CBC WITHOUT DIFF 2022-04-13 18:17:00 Sapna Quiroz [facility] GLYCOSYLATED HEMOGLOBIN (A1C) 2022-04-13 18:17:00 Harshil [facility] PROTHROMBIN TIME / INR 2022-04-13 18:17:00 Sapna Quiroz [facility] ACTIVATED PARTIAL THRMPLAS DAVID 2022-04-13 18:17:00 Sapna Quiroz [facility] COVID-19 (ID NOW RAPID TESTING) 2022-04-13 18:17:00 Sapna Quiroz [facility] LAB ONLY COVID INTERPRETATION 2022-04-13 18:17:00 Sapna Quiroz [facility] HB ECG ROUTINE & RHYTHM STRIP 2022-04-13 18:15:49 Sapna Quiroz [facility] CONSENT/REFUSAL FOR DIAGNOSI S AND TREATMENT 2022-04-13 18:05:14 Doctor Unassigned, Jud [facility] HOSPITAL ADMISSION 2022-04-13 05:01:00 Doctor Unassigned, Jud [facility] SARS-COV-2 COVID-19 VACCINE 12 YRS+,0.3ML,IM (PFIZER - [facility]) 2022-02-19 15:21:12 Doctor Unassigned, Jud [facility] URINE DRUG (IMMUNOASSAY) - COMPREHENSIVE DRUG SCREEN W/O REFLEX 2021-11-23 21:21:00 Williams Allison [facility] CT HEAD WO CONTRAST 2021-11-23 20:58:00 Williams Allison [facility] POCT TEST 2021-11-23 20:46:00 Williams Allison [facility] URINALYSIS 2021-11-23 20:43:00 Williams Allison [facility] LIPASE 2021-11-23 20:27:00 Williams Allison [facility] TROPONIN I 2021-11-23 20:27:00 Williams Allison [facility] COMP. METABOLIC PANEL ([id number]) 2021-11-23 20:27:00 Williams Allison [facility] CBC WITH DIFF 2021-11-23 20:27:00 Williams Allison [facility] POCT GLUCOSE (AUTOMATED) 2021-11-23 20:15:00 Doctor Unassigned, Jud [facility] SARS-COV-2 COVID-19 VACCINE,0.3ML,IM (PFIZER) 2021-05-24 14:23:12 Doctor Unassigned, Jud [facility] SARS-COV-2 COVID-19 VACCINE,0.3ML,IM (PFIZER) 2021-05-03 14:59:29 Doctor Unassigned, Jud [facility] EMERGENCY SERVICES AGREEMENT S AND AUTHORIZATIONS 2021-04-16 05:01:00 Doctor Unassigned, Jud [facility] URINALYSIS 2021-03-17 03:09:00 Fabrice Chakraborty [facility] XR CHEST 1 VW 2021-03-17 01:45:[address] [facility] 2021-03-17 01:35:00 Fabrice Chakraborty [facility] COMP. METABOLIC PANEL ([id number]) 2021-03-17 01:35:00 Fabrice Chakraborty [facility] CBC WITH DIFF 2021-03-17 01:35:00 Fabrice Chakraborty [facility] N-TERMINAL PRO-BNP 2021-03-17 01:35:00 Fabrice Chakraborty [facility] COVID-19 (ID NOW RAPID TESTING) 2021-03-17 00:58:00 Singer Mj [facility] CONSENT/REFUSAL FOR DIAGNOSI S AND TREATMENT 2021-03-17 00:32:59 Doctor Unassigned, Jud [facility] COVID-19 (ID NOW RAPID TESTING) 2021-02-19 17:04:00 Estefania Lemons [facility] CT ABDOMEN PELVIS W CONTRAST 2021-02-19 16:41:18 Estefania Lemons [facility] LIPASE 2021-02-19 15:58:00 Estefania Lemons [facility] COMP. METABOLIC PANEL ([id number]) 2021-02-19 15:58:00 Estefania Lemons [facility] CBC WITH DIFF 2021-02-19 15:58:00 Estefania Lemons [facility] URINALYSIS 2021-02-19 15:58:00 Estefania Lemons [facility] NOTICE OF PRIVACY PRACTICES 2021-02-19 15:30:46 Doctor Unassigned, Jud [facility] CONSENT/REFUSAL FOR DIAGNOSI S AND TREATMENT 2021-02-19 15:30:30 Doctor Unassigned, Jud [facility] EEG continuous monitoring [facility] Plan of Care Planned Activity Planned Date Details Comments Source Future Scheduled Test 2025-08-02 00:00:00 Lipid panel (procedure) [code = 76572983] [facility] Future Scheduled Test 2025-08-02 00:00:00 Lipid panel (procedure) [code = 86999735] [facility] Future Scheduled Test 2025-08-02 00:00:00 Lipid panel (procedure) [code = 46275646] [facility] Future Scheduled Test 2025-08-02 00:00:00 Lipid panel (procedure) [code = 38972723] [facility] Future Scheduled Test 2025-08-02 00:00:00 Lipid panel (procedure) [code = 39381445] [facility] Future Scheduled Test 2025-08-02 00:00:00 Lipid panel (procedure) [code = 90972502] [facility] Future Scheduled Test 2025-08-02 00:00:00 Lipid panel (procedure) [code = 86085122] [facility] Future Scheduled Test 2025-08-02 00:00:00 Lipid panel (procedure) [code = 04391908] [facility] Future Scheduled Test 2025-08-02 00:00:00 Lipid panel (procedure) [code = 55083357] [facility] Future Scheduled Test 2025-08-02 00:00:00 Lipid panel (procedure) [code = 98032330] [facility] Future Scheduled Test 2025-08-02 00:00:00 Lipid panel (procedure) [code = 82592064] [facility] Future Scheduled Test 2025-08-02 00:00:00 Lipid panel (procedure) [code = 23762588] [facility] Future Scheduled Test 2025-08-02 00:00:00 Lipid panel (procedure) [code = 84838164] [facility] Future Scheduled Test 2025-08-02 00:00:00 Lipid panel (procedure) [code = 26931336] [facility] Future Scheduled Test 2025-08-02 00:00:00 Lipid panel (procedure) [code = 25978069] [facility] Future Scheduled Test 2025-08-02 00:00:00 Lipid panel (procedure) [code = 43404031] [facility] Future Scheduled Test 2025-08-02 00:00:00 Lipid panel (procedure) [code = 82283266] [facility] Future Scheduled Test 2025-08-02 00:00:00 Lipid panel (procedure) [code = 84237168] [facility] Future Scheduled Test 2025-08-02 00:00:00 Lipid panel (procedure) [code = 33278655] [facility] Future Scheduled Test 2025-08-02 00:00:00 Lipid panel (procedure) [code = [id number]] [facility] Future Scheduled Test 2025-08-02 00:00:00 Lipid panel (procedure) [code = [id number]] [facility] Future Scheduled Test 2025-08-02 00:00:00 Lipid panel (procedure) [code = [id number]] [facility] Future Scheduled Test 2025-08-02 00:00:00 Lipid panel (procedure) [code = 53943959] [facility] Future Scheduled Test 2025-08-02 00:00:00 Lipid panel (procedure) [code = 85992938] [facility] Future Scheduled Test 2025-08-02 00:00:00 Lipid panel (procedure) [code = 52077020] [facility] Future Scheduled Test 2025-08-02 00:00:00 Lipid panel (procedure) [code = 28306086] [facility] Future Scheduled Test 2025-08-02 00:00:00 Lipid panel (procedure) [code = [id number]] [facility] Future Scheduled Test 2025-08-02 00:00:00 Lipid panel (procedure) [code = 82362821] [facility] Future Scheduled Test 2025-08-02 00:00:00 Lipid panel (procedure) [code = 53753319] [facility] Future Scheduled Test 2025-08-02 00:00:00 Lipid panel (procedure) [code = 33379397] [facility] Future Scheduled Test 2025-08-02 00:00:00 Lipid panel (procedure) [code = 26638516] [facility] Future Scheduled Test 2025-08-02 00:00:00 Lipid panel (procedure) [code = 12929536] [facility] Future Scheduled Test 2025-08-02 00:00:00 Lipid panel (procedure) [code = 97858617] [facility] Future Scheduled Test 2025-08-02 00:00:00 Lipid panel (procedure) [code = 30491369] [facility] Future Scheduled Test 2025-08-02 00:00:00 Lipid panel (procedure) [code = 83257760] [facility] Future Scheduled Test 2025-08-02 00:00:00 Lipid panel (procedure) [code = 10654344] [facility] Future Scheduled Test 2025-08-02 00:00:00 Lipid panel (procedure) [code = 00418384] [facility] Future Scheduled Test 2025-08-02 00:00:00 Lipid panel (procedure) [code = 68085973] [facility] Future Scheduled Test 2025-08-02 00:00:00 Lipid panel (procedure) [code = 86234956] [facility] Future Scheduled Test 2025-08-02 00:00:00 Lipid panel (procedure) [code = 18219138] [facility] Future Scheduled Test 2025-08-02 00:00:00 Lipid panel (procedure) [code = 55737684] [facility] Future Scheduled Test 2025-08-02 00:00:00 Lipid panel (procedure) [code = 24353828] [facility] Future Scheduled Test 2025-08-02 00:00:00 Lipid panel (procedure) [code = 92624471] [facility] Future Scheduled Test 2025-08-02 00:00:00 Lipid panel (procedure) [code = 92979634] [facility] Future Scheduled Test 2025-08-02 00:00:00 Lipid panel (procedure) [code = 97811762] [facility] Future Scheduled Test 2025-08-02 00:00:00 Lipid panel (procedure) [code = 99106905] [facility] Future Scheduled Test 2025-08-02 00:00:00 Lipid panel (procedure) [code = 41348720] [facility] Future Scheduled Test 2025-08-02 00:00:00 Lipid panel (procedure) [code = 40252769] [facility] Future Scheduled Test 2025-08-02 00:00:00 Lipid panel (procedure) [code = 58230068] [facility] Future Scheduled Test 2025-08-02 00:00:00 Lipid panel (procedure) [code = 51946675] [facility] Future Scheduled Test 2025-08-02 00:00:00 Lipid panel (procedure) [code = 25188867] [facility] Future Scheduled Test 2025-08-02 00:00:00 Lipid panel (procedure) [code = 74272198] [facility] Future Scheduled Test 2025-08-02 00:00:00 Lipid panel (procedure) [code = 85009678] [facility] Future Scheduled Test 2025-08-02 00:00:00 Lipid panel (procedure) [code = 74468672] [facility] Future Scheduled Test 2025-08-02 00:00:00 Lipid panel (procedure) [code = 23639565] [facility] Future Scheduled Test 2025-08-02 00:00:00 Lipid panel (procedure) [code = 77291323] [facility] Future Scheduled Test 2025-08-02 00:00:00 Lipid panel (procedure) [code = 31564202] [facility] Future Scheduled Test 2025-08-02 00:00:00 Lipid panel (procedure) [code = 22252445] [facility] Future Scheduled Test 2025-08-02 00:00:00 Lipid panel (procedure) [code = 17540816] [facility] Future Scheduled Test 2025-08-02 00:00:00 Lipid panel (procedure) [code = 56571882] [facility] Future Scheduled Test 2025-08-02 00:00:00 Lipid panel (procedure) [code = 94497032] [facility] Future Scheduled Test 2025-08-02 00:00:00 Lipid panel (procedure) [code = 25699610] [facility] Future Scheduled Test 2025-08-02 00:00:00 Lipid panel (procedure) [code = 40223948] [facility] Future Scheduled Test 2025-08-02 00:00:00 Lipid panel (procedure) [code = 29515353] [facility] Future Scheduled Test 2025-08-02 00:00:00 Lipid panel (procedure) [code = 04177508] [facility] Future Scheduled Test 2025-08-02 00:00:00 Lipid panel (procedure) [code = 72870843] [facility] Future Scheduled Test 2025-08-02 00:00:00 Lipid panel (procedure) [code = 08879955] [facility] Future Scheduled Test 2025-08-02 00:00:00 Lipid panel (procedure) [code = 38123935] [facility] Future Scheduled Test 2025-08-02 00:00:00 Lipid panel (procedure) [code = 15232254] [facility] Future Scheduled Test 2025-08-02 00:00:00 Lipid panel (procedure) [code = 78341229] [facility] Future Scheduled Test 2024-05-28 00:00:00 Tobacco Cessation Counseling and Screening (12+) [code = Tobacco Cessation Counseling and Screening (12+)] [facility] Scheduled Test 2024-05-28 00:00:00 Tobacco Cessation Counseling and Screening (12+) [code = Tobacco Cessation Counseling and Screening (12+)] [facility] Future Scheduled Test 2024-05-28 00:00:00 Tobacco Cessation Counseling and Screening (12+) [code = Tobacco Cessation Counseling and Screening (12+)] [facility] Scheduled Test 2024-05-28 00:00:00 Tobacco Cessation Counseling and Screening (12+) [code = Tobacco Cessation Counseling and Screening (12+)] [facility] Scheduled Test 2024-05-28 00:00:00 Tobacco Cessation Counseling and Screening (12+) [code = Tobacco Cessation Counseling and Screening (12+)] [facility] Scheduled Test 2024-05-28 00:00:00 Tobacco Cessation Counseling and Screening (12+) [code = Tobacco Cessation Counseling and Screening (12+)] [facility] Scheduled Test 2024-05-28 00:00:00 Tobacco Cessation Counseling and Screening (12+) [code = Tobacco Cessation Counseling and Screening (12+)] [facility] Scheduled Test 2024-05-28 00:00:00 Tobacco Cessation Counseling and Screening (12+) [code = Tobacco Cessation Counseling and Screening (12+)] [facility] Future Scheduled Test 2024-05-28 00:00:00 Tobacco Cessation Counseling and Screening (12+) [code = Tobacco Cessation Counseling and Screening (12+)] [facility] Scheduled Test 2024-05-28 00:00:00 Tobacco Cessation Counseling and Screening (12+) [code = Tobacco Cessation Counseling and Screening (12+)] [facility] Scheduled Test 2024-05-28 00:00:00 Tobacco Cessation Counseling and Screening (12+) [code = Tobacco Cessation Counseling and Screening (12+)] [facility] Scheduled Test 2024-05-28 00:00:00 Tobacco Cessation Counseling and Screening (12+) [code = Tobacco Cessation Counseling and Screening (12+)] [facility] Scheduled Test 2024-05-28 00:00:00 Tobacco Cessation Counseling and Screening (12+) [code = Tobacco Cessation Counseling and Screening (12+)] [facility] Scheduled Test 2024-05-28 00:00:00 Tobacco Cessation Counseling and Screening (12+) [code = Tobacco Cessation Counseling and Screening (12+)] [facility] Scheduled Test 2024-05-28 00:00:00 Tobacco Cessation Counseling and Screening (12+) [code = Tobacco Cessation Counseling and Screening (12+)] [facility] Scheduled Test 2024-05-28 00:00:00 Tobacco Cessation Counseling and Screening (12+) [code = Tobacco Cessation Counseling and Screening (12+)] [facility] Scheduled Test 2024-05-28 00:00:00 Tobacco Cessation Counseling and Screening (12+) [code = Tobacco Cessation Counseling and Screening (12+)] [facility] Scheduled Test 2024-05-28 00:00:00 Tobacco Cessation Counseling and Screening (12+) [code = Tobacco Cessation Counseling and Screening (12+)] [facility] Scheduled Test 2024-05-28 00:00:00 Tobacco Cessation Counseling and Screening (12+) [code = Tobacco Cessation Counseling and Screening (12+)] [facility] Scheduled Test 2024-05-28 00:00:00 Tobacco Cessation Counseling and Screening (12+) [code = Tobacco Cessation Counseling and Screening (12+)] [facility] Scheduled Test 2024-05-28 00:00:00 Tobacco Cessation Counseling and Screening (12+) [code = Tobacco Cessation Counseling and Screening (12+)] [facility] Scheduled Test 2024-05-28 00:00:00 Tobacco Cessation Counseling and Screening (12+) [code = Tobacco Cessation Counseling and Screening (12+)] [facility] Scheduled Test 2024-05-28 00:00:00 Tobacco Cessation Counseling and Screening (12+) [code = Tobacco Cessation Counseling and Screening (12+)] [facility] Scheduled Test 2024-05-28 00:00:00 Tobacco Cessation Counseling and Screening (12+) [code = Tobacco Cessation Counseling and Screening (12+)] [facility] Scheduled Test 2024-05-28 00:00:00 Tobacco Cessation Counseling and Screening (12+) [code = Tobacco Cessation Counseling and Screening (12+)] [facility] Scheduled Test 2024-05-28 00:00:00 Tobacco Cessation Counseling and Screening (12+) [code = Tobacco Cessation Counseling and Screening (12+)] [facility] Scheduled Test 2024-05-28 00:00:00 Tobacco Cessation Counseling and Screening (12+) [code = Tobacco Cessation Counseling and Screening (12+)] [facility] Scheduled Test 2024-05-28 00:00:00 Tobacco Cessation Counseling and Screening (12+) [code = Tobacco Cessation Counseling and Screening (12+)] [facility] Scheduled Test 2024-05-28 00:00:00 Tobacco Cessation Counseling and Screening (12+) [code = Tobacco Cessation Counseling and Screening (12+)] [facility] Scheduled Test 2024-05-28 00:00:00 Tobacco Cessation Counseling and Screening (12+) [code = Tobacco Cessation Counseling and Screening (12+)] [facility] Scheduled Test 2024-05-28 00:00:00 Tobacco Cessation Counseling and Screening (12+) [code = Tobacco Cessation Counseling and Screening (12+)] [facility] Scheduled Test 2024-05-28 00:00:00 Tobacco Cessation Counseling and Screening (12+) [code = Tobacco Cessation Counseling and Screening (12+)] [facility] Scheduled Test 2024-05-28 00:00:00 Tobacco Cessation Counseling and Screening (12+) [code = Tobacco Cessation Counseling and Screening (12+)] [facility] Scheduled Test 2024-05-28 00:00:00 Tobacco Cessation Counseling and Screening (12+) [code = Tobacco Cessation Counseling and Screening (12+)] [facility] Scheduled Test 2024-05-28 00:00:00 Tobacco Cessation Counseling and Screening (12+) [code = Tobacco Cessation Counseling and Screening (12+)] [facility] Future Scheduled Test 2024-05-28 00:00:00 Tobacco Cessation Counseling and Screening (12+) [code = Tobacco Cessation Counseling and Screening (12+)] [facility] Scheduled Test 2024-05-28 00:00:00 Tobacco Cessation Counseling and Screening (12+) [code = Tobacco Cessation Counseling and Screening (12+)] [facility] Scheduled Test 2024-05-28 00:00:00 Tobacco Cessation Counseling and Screening (12+) [code = Tobacco Cessation Counseling and Screening (12+)] [facility] Scheduled Test 2024-05-28 00:00:00 Tobacco Cessation Counseling and Screening (12+) [code = Tobacco Cessation Counseling and Screening (12+)] [facility] Scheduled Test 2024-05-28 00:00:00 Tobacco Cessation Counseling and Screening (12+) [code = Tobacco Cessation Counseling and Screening (12+)] [facility] Scheduled Test 2024-05-28 00:00:00 Tobacco Cessation Counseling and Screening (12+) [code = Tobacco Cessation Counseling and Screening (12+)] [facility] Scheduled Test 2024-05-28 00:00:00 Tobacco Cessation Counseling and Screening (12+) [code = Tobacco Cessation Counseling and Screening (12+)] [facility] Scheduled Test 2024-05-28 00:00:00 Tobacco Cessation Counseling and Screening (12+) [code = Tobacco Cessation Counseling and Screening (12+)] [facility] Scheduled Test 2024-05-28 00:00:00 Tobacco Cessation Counseling and Screening (12+) [code = Tobacco Cessation Counseling and Screening (12+)] [facility] Future Scheduled Test 2024-05-28 00:00:00 Tobacco Cessation Counseling and Screening (12+) [code = Tobacco Cessation Counseling and Screening (12+)] [facility] Scheduled Test 2024-05-26 00:00:00 Tobacco Cessation Counseling and Screening (12+) [code = Tobacco Cessation Counseling and Screening (12+)] [facility] Scheduled Test 2024-05-26 00:00:00 Tobacco Cessation Counseling and Screening (12+) [code = Tobacco Cessation Counseling and Screening (12+)] [facility] Future Scheduled Test 2024-03-20 00:00:00 Influenza Vaccine (Season Ended) [code = Influenza Vaccine (Season Ended)] [facility] Future Scheduled Test 2024-03-20 00:00:00 Influenza Vaccine (Season Ended) [code = Influenza Vaccine (Season Ended)] [facility] Future Scheduled Test 2024-03-20 00:00:00 Influenza Vaccine (Season Ended) [code = Influenza Vaccine (Season Ended)] [facility] Future Scheduled Test 2024-03-20 00:00:00 Influenza Vaccine (Season Ended) [code = Influenza Vaccine (Season Ended)] [facility] Future Scheduled Test 2024-03-20 00:00:00 Influenza Vaccine (Season Ended) [code = Influenza Vaccine (Season Ended)] [facility] Future Scheduled Test 2024-03-20 00:00:00 Influenza Vaccine (Season Ended) [code = Influenza Vaccine (Season Ended)] [facility] Future Scheduled Test 2024-03-20 00:00:00 Influenza Vaccine (Season Ended) [code = Influenza Vaccine (Season Ended)] [facility] Future Scheduled Test 2024-03-20 00:00:00 Influenza Vaccine (Season Ended) [code = Influenza Vaccine (Season Ended)] [facility] Future Scheduled Test 2024-03-20 00:00:00 Influenza Vaccine (Season Ended) [code = Influenza Vaccine (Season Ended)] [facility] Future Scheduled Test 2024-03-20 00:00:00 Influenza Vaccine (Season Ended) [code = Influenza Vaccine (Season Ended)] [facility] Future Scheduled Test 2023-07-20 00:00:00 DEPRESSION SCREENING (12+) [code = DEPRESSION SCREENING (12+)] [facility] Future Scheduled Test 2023-07-20 00:00:00 DEPRESSION SCREENING (12+) [code = DEPRESSION SCREENING (12+)] [facility] Future Scheduled Test 2023-07-20 00:00:00 DEPRESSION SCREENING (12+) [code = DEPRESSION SCREENING (12+)] [facility] Future Scheduled Test 2023-07-20 00:00:00 DEPRESSION SCREENING (12+) [code = DEPRESSION SCREENING (12+)] [facility] Future Scheduled Test 2023-07-20 00:00:00 DEPRESSION SCREENING (12+) [code = DEPRESSION SCREENING (12+)] [facility] Future Scheduled Test 2023-07-20 00:00:00 DEPRESSION SCREENING (12+) [code = DEPRESSION SCREENING (12+)] [facility] Future Scheduled Test 2023-07-20 00:00:00 DEPRESSION SCREENING (12+) [code = DEPRESSION SCREENING (12+)] [facility] Future Scheduled Test 2023-07-20 00:00:00 DEPRESSION SCREENING (12+) [code = DEPRESSION SCREENING (12+)] [facility] Future Scheduled Test 2023-07-20 00:00:00 DEPRESSION SCREENING (12+) [code = DEPRESSION SCREENING (12+)] [facility] Future Scheduled Test 2023-07-20 00:00:00 DEPRESSION SCREENING (12+) [code = DEPRESSION SCREENING (12+)] [facility] Future Scheduled Test 2023-07-20 00:00:00 DEPRESSION SCREENING (12+) [code = DEPRESSION SCREENING (12+)] [facility] Future Scheduled Test 2023-07-20 00:00:00 DEPRESSION SCREENING (12+) [code = DEPRESSION SCREENING (12+)] [facility] Future Scheduled Test 2023-07-20 00:00:00 DEPRESSION SCREENING (12+) [code = DEPRESSION SCREENING (12+)] [facility] Future Scheduled Test 2023-07-20 00:00:00 DEPRESSION SCREENING (12+) [code = DEPRESSION SCREENING (12+)] [facility] Future Scheduled Test 2023-07-20 00:00:00 DEPRESSION SCREENING (12+) [code = DEPRESSION SCREENING (12+)] [facility] Future Scheduled Test 2023-07-20 00:00:00 DEPRESSION SCREENING (12+) [code = DEPRESSION SCREENING (12+)] [facility] Future Scheduled Test 2023-07-20 00:00:00 DEPRESSION SCREENING (12+) [code = DEPRESSION SCREENING (12+)] [facility] Future Scheduled Test 2023-07-20 00:00:00 DEPRESSION SCREENING (12+) [code = DEPRESSION SCREENING (12+)] [facility] Future Scheduled Test 2023-07-20 00:00:00 DEPRESSION SCREENING (12+) [code = DEPRESSION SCREENING (12+)] [facility] Future Scheduled Test 2023-07-20 00:00:00 DEPRESSION SCREENING (12+) [code = DEPRESSION SCREENING (12+)] [facility] Future Scheduled Test 2023-07-20 00:00:00 DEPRESSION SCREENING (12+) [code = DEPRESSION SCREENING (12+)] [facility] Future Scheduled Test 2023-07-20 00:00:00 DEPRESSION SCREENING (12+) [code = DEPRESSION SCREENING (12+)] [facility] Future Scheduled Test 2023-07-20 00:00:00 DEPRESSION SCREENING (12+) [code = DEPRESSION SCREENING (12+)] [facility] Future Scheduled Test 2023-07-20 00:00:00 DEPRESSION SCREENING (12+) [code = DEPRESSION SCREENING (12+)] [facility] Future Scheduled Test 2023-07-20 00:00:00 DEPRESSION SCREENING (12+) [code = DEPRESSION SCREENING (12+)] [facility] Future Scheduled Test 2023-07-20 00:00:00 DEPRESSION SCREENING (12+) [code = DEPRESSION SCREENING (12+)] [facility] Future Scheduled Test 2023-07-20 00:00:00 DEPRESSION SCREENING (12+) [code = DEPRESSION SCREENING (12+)] [facility] Future Scheduled Test 2023-07-20 00:00:00 DEPRESSION SCREENING (12+) [code = DEPRESSION SCREENING (12+)] [facility] Future Scheduled Test 2023-07-20 00:00:00 DEPRESSION SCREENING (12+) [code = DEPRESSION SCREENING (12+)] [facility] Future Scheduled Test 2023-07-20 00:00:00 DEPRESSION SCREENING (12+) [code = DEPRESSION SCREENING (12+)] [facility] Future Scheduled Test 2023-07-20 00:00:00 DEPRESSION SCREENING (12+) [code = DEPRESSION SCREENING (12+)] [facility] Future Scheduled Test 2023-07-20 00:00:00 DEPRESSION SCREENING (12+) [code = DEPRESSION SCREENING (12+)] [facility] Future Scheduled Test 2023-07-20 00:00:00 DEPRESSION SCREENING (12+) [code = DEPRESSION SCREENING (12+)] [facility] Future Scheduled Test 2023-07-20 00:00:00 DEPRESSION SCREENING (12+) [code = DEPRESSION SCREENING (12+)] [facility] Future Scheduled Test 2023-07-20 00:00:00 DEPRESSION SCREENING (12+) [code = DEPRESSION SCREENING (12+)] [facility] Future Scheduled Test 2023-07-20 00:00:00 DEPRESSION SCREENING (12+) [code = DEPRESSION SCREENING (12+)] [facility] Future Scheduled Test 2023-07-20 00:00:00 DEPRESSION SCREENING (12+) [code = DEPRESSION SCREENING (12+)] [facility] Future Scheduled Test 2023-03-20 00:00:00 INFLUENZA VACCINE (Season Ended) [code = INFLUENZA VACCINE (Season Ended)] [facility] Future Scheduled Test 2023-03-20 00:00:00 INFLUENZA VACCINE (Season Ended) [code = INFLUENZA VACCINE (Season Ended)] [facility] Future Scheduled Test 2023-03-20 00:00:00 INFLUENZA VACCINE (Season Ended) [code = INFLUENZA VACCINE (Season Ended)] [facility] Future Scheduled Test 2023-03-20 00:00:00 INFLUENZA VACCINE (Season Ended) [code = INFLUENZA VACCINE (Season Ended)] [facility] Future Scheduled Test 2023-03-20 00:00:00 INFLUENZA VACCINE (Season Ended) [code = INFLUENZA VACCINE (Season Ended)] [facility] Future Scheduled Test 2023-03-20 00:00:00 INFLUENZA VACCINE (Season Ended) [code = INFLUENZA VACCINE (Season Ended)] [facility] Future Scheduled Test 2023-03-20 00:00:00 Influenza Vaccine (Season Ended) [code = Influenza Vaccine (Season Ended)] [facility] Future Scheduled Test 2023-03-20 00:00:00 Influenza Vaccine (Season Ended) [code = Influenza Vaccine (Season Ended)] [facility] Future Scheduled Test 2023-03-20 00:00:00 Influenza Vaccine (#1) [code = Influenza Vaccine (#1)] [facility] Future Scheduled Test 2023-03-20 00:00:00 Influenza Vaccine (#1) [code = Influenza Vaccine (#1)] [facility] Scheduled Test 2023-03-20 00:00:00 Influenza Vaccine (#1) [code = Influenza Vaccine (#1)] [facility] Future Scheduled Test 2023-03-20 00:00:00 Influenza Vaccine (#1) [code = Influenza Vaccine (#1)] [facility] Scheduled Test 2023-03-20 00:00:00 COVID-19 VACCINE ( season) [code = COVID-19 VACCINE ()] [facility] Scheduled Test 2023-03-20 00:00:00 Influenza Vaccine (#1) [code = Influenza Vaccine (#1)] [facility] Future Scheduled Test 2023-03-20 00:00:00 COVID-19 VACCINE ( season) [code = COVID-19 VACCINE ()] [facility] Scheduled Test 2023-03-20 00:00:00 Influenza Vaccine (#1) [code = Influenza Vaccine (#1)] [facility] Future Scheduled Test 2023-03-20 00:00:00 COVID-19 VACCINE ( season) [code = COVID-19 VACCINE ()] [facility] Future Scheduled Test 2023-03-20 00:00:00 Influenza Vaccine (#1) [code = Influenza Vaccine (#1)] [facility] Future Scheduled Test 2023-03-20 00:00:00 COVID-19 VACCINE ( season) [code = COVID-19 VACCINE ( season)] [facility] Scheduled Test 2023-03-20 00:00:00 Influenza Vaccine (#1) [code = Influenza Vaccine (#1)] [facility] Future Scheduled Test 2023-03-20 00:00:00 Influenza Vaccine (#1) [code = Influenza Vaccine (#1)] [facility] Future Scheduled Test 2023-03-20 00:00:00 COVID-19 VACCINE ( season) [code = COVID-19 VACCINE ( season)] [facility] Future Scheduled Test 2023-03-20 00:00:00 Influenza Vaccine (#1) [code = Influenza Vaccine (#1)] [facility] Future Scheduled Test 2023-03-20 00:00:00 COVID-19 VACCINE ( season) [code = COVID-19 VACCINE ()] [facility] Scheduled Test 2023-03-20 00:00:00 Influenza Vaccine (#1) [code = Influenza Vaccine (#1)] [facility] Scheduled Test 2023-03-20 00:00:00 COVID-19 VACCINE () [code = COVID-19 VACCINE ()] [facility] Scheduled Test 2023-03-20 00:00:00 Influenza Vaccine (#1) [code = Influenza Vaccine (#1)] [facility] Scheduled Test 2023-03-20 00:00:00 COVID-19 VACCINE () [code = COVID-19 VACCINE ()] [facility] Scheduled Test 2023-03-20 00:00:00 Influenza Vaccine (#1) [code = Influenza Vaccine (#1)] [facility] Scheduled Test 2023-03-20 00:00:00 COVID-19 VACCINE ( season) [code = COVID-19 VACCINE ()] [facility] Scheduled Test 2023-03-20 00:00:00 Influenza Vaccine (#1) [code = Influenza Vaccine (#1)] [facility] Scheduled Test 2023-03-20 00:00:00 COVID-19 VACCINE () [code = COVID-19 VACCINE ( season)] [facility] Scheduled Test 2023-03-20 00:00:00 Influenza Vaccine (#1) [code = Influenza Vaccine (#1)] [facility] Scheduled Test 2023-03-20 00:00:00 COVID-19 VACCINE ( season) [code = COVID-19 VACCINE ( season)] [facility] Scheduled Test 2023-03-20 00:00:00 Influenza Vaccine (#1) [code = Influenza Vaccine (#1)] [facility] Scheduled Test 2023-03-20 00:00:00 Influenza Vaccine (#1) [code = Influenza Vaccine (#1)] [facility] Scheduled Test 2023-03-20 00:00:00 COVID-19 VACCINE ( season) [code = COVID-19 VACCINE ()] [facility] Scheduled Test 2023-03-20 00:00:00 Influenza Vaccine (#1) [code = Influenza Vaccine (#1)] [facility] Scheduled Test 2023-03-20 00:00:00 COVID-19 VACCINE ( season) [code = COVID-19 VACCINE ()] [facility] Scheduled Test 2023-03-20 00:00:00 Influenza Vaccine (#1) [code = Influenza Vaccine (#1)] [facility] Scheduled Test 2023-03-20 00:00:00 COVID-19 VACCINE ( season) [code = COVID-19 VACCINE ( season)] [facility] Scheduled Test 2023-03-20 00:00:00 Influenza Vaccine (#1) [code = Influenza Vaccine (#1)] [facility] Scheduled Test 2023-03-20 00:00:00 COVID-19 VACCINE ( season) [code = COVID-19 VACCINE ( season)] [facility] Scheduled Test 2023-03-20 00:00:00 Influenza Vaccine (#1) [code = Influenza Vaccine (#1)] [facility] Scheduled Test 2023-03-20 00:00:00 COVID-19 VACCINE ( season) [code = COVID-19 VACCINE ( season)] [facility] Scheduled Test 2023-03-20 00:00:00 Influenza Vaccine (#1) [code = Influenza Vaccine (#1)] [facility] Scheduled Test 2023-03-20 00:00:00 COVID-19 VACCINE ( season) [code = COVID-19 VACCINE ()] [facility] Scheduled Test 2023-03-20 00:00:00 Influenza Vaccine (#1) [code = Influenza Vaccine (#1)] [facility] Scheduled Test 2023-03-20 00:00:00 Influenza Vaccine (#1) [code = Influenza Vaccine (#1)] [facility] Scheduled Test 2023-03-20 00:00:00 COVID-19 VACCINE ( season) [code = COVID-19 VACCINE ()] [facility] Scheduled Test 2023-03-20 00:00:00 Influenza Vaccine (#1) [code = Influenza Vaccine (#1)] [facility] Scheduled Test 2023-03-20 00:00:00 COVID-19 VACCINE ( season) [code = COVID-19 VACCINE ( season)] [facility] Scheduled Test 2023-03-20 00:00:00 Influenza Vaccine (#1) [code = Influenza Vaccine (#1)] [facility] Scheduled Test 2023-03-20 00:00:00 COVID-19 VACCINE ( season) [code = COVID-19 VACCINE ( season)] [facility] Scheduled Test 2023-03-20 00:00:00 Influenza Vaccine (#1) [code = Influenza Vaccine (#1)] [facility] Scheduled Test 2023-03-20 00:00:00 COVID-19 VACCINE ( season) [code = COVID-19 VACCINE ( season)] [facility] Scheduled Test 2023-03-20 00:00:00 Influenza Vaccine (#1) [code = Influenza Vaccine (#1)] [facility] Scheduled Test 2023-03-20 00:00:00 Influenza Vaccine (#1) [code = Influenza Vaccine (#1)] [facility] Scheduled Test 2023-03-20 00:00:00 COVID-19 VACCINE ( season) [code = COVID-19 VACCINE ()] [facility] Scheduled Test 2023-03-20 00:00:00 Influenza Vaccine (#1) [code = Influenza Vaccine (#1)] [facility] Scheduled Test 2023-03-20 00:00:00 COVID-19 VACCINE ( season) [code = COVID-19 VACCINE ()] [facility] Scheduled Test 2023-03-20 00:00:00 Influenza Vaccine (#1) [code = Influenza Vaccine (#1)] [facility] Scheduled Test 2023-03-20 00:00:00 COVID-19 VACCINE ( season) [code = COVID-19 VACCINE ()] [facility] Scheduled Test 2023-03-20 00:00:00 Influenza Vaccine (#1) [code = Influenza Vaccine (#1)] [facility] Scheduled Test 2023-03-20 00:00:00 COVID-19 VACCINE ( season) [code = COVID-19 VACCINE ( season)] [facility] Scheduled Test 2023-03-20 00:00:00 Influenza Vaccine (#1) [code = Influenza Vaccine (#1)] [facility] Scheduled Test 2023-03-20 00:00:00 COVID-19 VACCINE ( season) [code = COVID-19 VACCINE ( season)] [facility] Scheduled Test 2023-03-20 00:00:00 Influenza Vaccine (#1) [code = Influenza Vaccine (#1)] [facility] Scheduled Test 2023-03-20 00:00:00 COVID-19 VACCINE ( season) [code = COVID-19 VACCINE ()] [facility] Scheduled Test 2023-03-20 00:00:00 Influenza Vaccine (#1) [code = Influenza Vaccine (#1)] [facility] Scheduled Test 2023-03-20 00:00:00 Influenza Vaccine (#1) [code = Influenza Vaccine (#1)] [facility] Scheduled Test 2023-03-20 00:00:00 COVID-19 VACCINE () [code = COVID-19 VACCINE ()] [facility] Scheduled Test 2023-03-20 00:00:00 Influenza Vaccine (#1) [code = Influenza Vaccine (#1)] [facility] Scheduled Test 2023-03-20 00:00:00 COVID-19 VACCINE () [code = COVID-19 VACCINE ()] [facility] Scheduled Test 2023-03-20 00:00:00 Influenza Vaccine (#1) [code = Influenza Vaccine (#1)] [facility] Scheduled Test 2023-03-20 00:00:00 COVID-19 VACCINE ( season) [code = COVID-19 VACCINE ()] [facility] Scheduled Test 2023-03-20 00:00:00 COVID-19 VACCINE () [code = COVID-19 VACCINE ()] [facility] Scheduled Test 2023-03-20 00:00:00 COVID-19 VACCINE () [code = COVID-19 VACCINE ()] [facility] Scheduled Test 2023-03-20 00:00:00 COVID-19 VACCINE ( season) [code = COVID-19 VACCINE ()] [facility] Scheduled Test 2023-03-20 00:00:00 COVID-19 VACCINE ( season) [code = COVID-19 VACCINE ()] [facility] Scheduled Test 2023-03-20 00:00:00 COVID-19 VACCINE () [code = COVID-19 VACCINE ()] [facility] Scheduled Test 2023-03-20 00:00:00 Influenza Vaccine (#1) [code = Influenza Vaccine (#1)] [facility] Scheduled Test 2023-03-20 00:00:00 COVID-19 VACCINE () [code = COVID-19 VACCINE ()] [facility] Scheduled Test 2023-03-20 00:00:00 COVID-19 VACCINE () [code = COVID-19 VACCINE ()] [facility] Scheduled Test 2023-03-20 00:00:00 COVID-19 VACCINE ( season) [code = COVID-19 VACCINE ()] [facility] Scheduled Test 2023-03-20 00:00:00 COVID-19 VACCINE ( season) [code = COVID-19 VACCINE ( season)] [facility] Scheduled Test 2023-03-20 00:00:00 Influenza Vaccine (#1) [code = Influenza Vaccine (#1)] [facility] Scheduled Test 2023-03-20 00:00:00 Influenza Vaccine (#1) [code = Influenza Vaccine (#1)] [facility] Scheduled Test 2023-03-20 00:00:00 Influenza Vaccine (#1) [code = Influenza Vaccine (#1)] [facility] Scheduled Test 2023-03-20 00:00:00 Influenza Vaccine (#1) [code = Influenza Vaccine (#1)] [facility] Scheduled Test 2023-03-20 00:00:00 Influenza Vaccine (#1) [code = Influenza Vaccine (#1)] [facility] Scheduled Test 2023-03-20 00:00:00 Influenza Vaccine (#1) [code = Influenza Vaccine (#1)] [facility] Scheduled Test 2023-03-20 00:00:00 Influenza Vaccine (#1) [code = Influenza Vaccine (#1)] [facility] Scheduled Test 2023-03-20 00:00:00 Influenza Vaccine (#1) [code = Influenza Vaccine (#1)] [facility] Scheduled Test 2023-03-20 00:00:00 Influenza Vaccine (#1) [code = Influenza Vaccine (#1)] [facility] Scheduled Test 2023-03-20 00:00:00 COVID-19 VACCINE ( season) [code = COVID-19 VACCINE ( season)] [facility] Scheduled Test 2022-07-20 00:00:00 DEPRESSION SCREENING (12+) [code = DEPRESSION SCREENING (12+)] [facility] Scheduled Test 2022-07-20 00:00:00 DEPRESSION SCREENING (12+) [code = DEPRESSION SCREENING (12+)] [facility] Scheduled Test 2022-07-20 00:00:00 DEPRESSION SCREENING (12+) [code = DEPRESSION SCREENING (12+)] [facility] Scheduled Test 2022-07-20 00:00:00 DEPRESSION SCREENING (12+) [code = DEPRESSION SCREENING (12+)] [facility] Scheduled Test 2022-07-20 00:00:00 DEPRESSION SCREENING (12+) [code = DEPRESSION SCREENING (12+)] [facility] Scheduled Test 2022-07-20 00:00:00 DEPRESSION SCREENING (12+) [code = DEPRESSION SCREENING (12+)] [facility] Scheduled Test 2022-07-20 00:00:00 DEPRESSION SCREENING (12+) [code = DEPRESSION SCREENING (12+)] [facility] Scheduled Test 2022-07-20 00:00:00 DEPRESSION SCREENING (12+) [code = DEPRESSION SCREENING (12+)] [facility] Scheduled Test 2022-07-20 00:00:00 DEPRESSION SCREENING (12+) [code = DEPRESSION SCREENING (12+)] [facility] Scheduled Test 2022-07-20 00:00:00 DEPRESSION SCREENING (12+) [code = DEPRESSION SCREENING (12+)] [facility] Scheduled Test 2022-07-20 00:00:00 DEPRESSION SCREENING (12+) [code = DEPRESSION SCREENING (12+)] [facility] Scheduled Test 2022-07-20 00:00:00 DEPRESSION SCREENING (12+) [code = DEPRESSION SCREENING (12+)] [facility] Scheduled Test 2022-07-20 00:00:00 DEPRESSION SCREENING (12+) [code = DEPRESSION SCREENING (12+)] [facility] Scheduled Test 2022-07-20 00:00:00 DEPRESSION SCREENING (12+) [code = DEPRESSION SCREENING (12+)] [facility] Scheduled Test 2022-07-20 00:00:00 DEPRESSION SCREENING (12+) [code = DEPRESSION SCREENING (12+)] [facility] Scheduled Test 2022-07-20 00:00:00 DEPRESSION SCREENING (12+) [code = DEPRESSION SCREENING (12+)] [facility] Scheduled Test 2022-07-20 00:00:00 DEPRESSION SCREENING (12+) [code = DEPRESSION SCREENING (12+)] [facility] Scheduled Test 2022-07-20 00:00:00 DEPRESSION SCREENING (12+) [code = DEPRESSION SCREENING (12+)] [facility] Scheduled Test 2022-07-20 00:00:00 DEPRESSION SCREENING (12+) [code = DEPRESSION SCREENING (12+)] [facility] Scheduled Test 2022-07-20 00:00:00 DEPRESSION SCREENING (12+) [code = DEPRESSION SCREENING (12+)] [facility] Scheduled Test 2022-07-20 00:00:00 DEPRESSION SCREENING (12+) [code = DEPRESSION SCREENING (12+)] [facility] Scheduled Test 2022-07-20 00:00:00 DEPRESSION SCREENING (12+) [code = DEPRESSION SCREENING (12+)] [facility] Scheduled Test 2022-07-20 00:00:00 DEPRESSION SCREENING (12+) [code = DEPRESSION SCREENING (12+)] [facility] Scheduled Test 2022-07-20 00:00:00 DEPRESSION SCREENING (12+) [code = DEPRESSION SCREENING (12+)] [facility] Scheduled Test 2022-07-20 00:00:00 DEPRESSION SCREENING (12+) [code = DEPRESSION SCREENING (12+)] [facility] Scheduled Test 2022-07-20 00:00:00 DEPRESSION SCREENING (12+) [code = DEPRESSION SCREENING (12+)] [facility] Scheduled Test 2022-07-20 00:00:00 DEPRESSION SCREENING (12+) [code = DEPRESSION SCREENING (12+)] [facility] Scheduled Test 2022-07-20 00:00:00 DEPRESSION SCREENING (12+) [code = DEPRESSION SCREENING (12+)] [facility] Scheduled Test 2022-07-20 00:00:00 DEPRESSION SCREENING (12+) [code = DEPRESSION SCREENING (12+)] [facility] Scheduled Test 2022-07-20 00:00:00 DEPRESSION SCREENING (12+) [code = DEPRESSION SCREENING (12+)] [facility] Scheduled Test 2022-07-20 00:00:00 DEPRESSION SCREENING (12+) [code = DEPRESSION SCREENING (12+)] [facility] Scheduled Test 2022-07-20 00:00:00 DEPRESSION SCREENING (12+) [code = DEPRESSION SCREENING (12+)] [facility] Scheduled Test 2022-07-20 00:00:00 DEPRESSION SCREENING (12+) [code = DEPRESSION SCREENING (12+)] [facility] Scheduled Test 2022-06-21 00:00:00 COVID-19 VACCINE (4 - Booster for Pfizer series) [code = COVID-19 VACCINE (4 - Booster for Pfizer series)] [facility] Scheduled Test 2022-06-21 00:00:00 COVID-19 VACCINE (4 - Booster for Pfizer series) [code = COVID-19 VACCINE (4 - Booster for Pfizer series)] [facility] Scheduled Test 2022-06-21 00:00:00 COVID-19 VACCINE (4 - Booster for Pfizer series) [code = COVID-19 VACCINE (4 - Booster for Pfizer series)] [facility] Scheduled Test 2022-06-21 00:00:00 COVID-19 VACCINE (4 - Booster for Pfizer series) [code = COVID-19 VACCINE (4 - Booster for Pfizer series)] [facility] Scheduled Test 2022-04-16 00:00:00 COVID-19 VACCINE (4 - Booster for Pfizer series) [code = COVID-19 VACCINE (4 - Booster for Pfizer series)] [facility] Scheduled Test 2022-04-16 00:00:00 COVID-19 VACCINE (4 - Booster for Pfizer series) [code = COVID-19 VACCINE (4 - Booster for Pfizer series)] [facility] Scheduled Test 2022-04-16 00:00:00 COVID-19 VACCINE (4 - Booster for Pfizer series) [code = COVID-19 VACCINE (4 - Booster for Pfizer series)] [facility] Scheduled Test 2022-04-16 00:00:00 COVID-19 VACCINE (4 - Booster for Pfizer series) [code = COVID-19 VACCINE (4 - Booster for Pfizer series)] [facility] Scheduled Test 2022-04-16 00:00:00 COVID-19 VACCINE (4 - Booster for Pfizer series) [code = COVID-19 VACCINE (4 - Booster for Pfizer series)] [facility] Scheduled Test 2022-04-16 00:00:00 COVID-19 VACCINE (4 - Booster for Pfizer series) [code = COVID-19 VACCINE (4 - Booster for Pfizer series)] [facility] Scheduled Test 2022-04-16 00:00:00 COVID-19 VACCINE (4 - Booster for Pfizer series) [code = COVID-19 VACCINE (4 - Booster for Pfizer series)] [facility] Scheduled Test 2022-04-16 00:00:00 COVID-19 VACCINE (4 - Booster for Pfizer series) [code = COVID-19 VACCINE (4 - Booster for Pfizer series)] [facility] Scheduled Test 2022-04-16 00:00:00 COVID-19 VACCINE (4 - Booster for Pfizer series) [code = COVID-19 VACCINE (4 - Booster for Pfizer series)] [facility] Scheduled Test 2022-04-16 00:00:00 COVID-19 VACCINE (4 - Booster for Pfizer series) [code = COVID-19 VACCINE (4 - Booster for Pfizer series)] [facility] Scheduled Test 2022-04-16 00:00:00 COVID-19 VACCINE (4 - Booster for Pfizer series) [code = COVID-19 VACCINE (4 - Booster for Pfizer series)] [facility] Scheduled Test 2022-04-16 00:00:00 COVID-19 VACCINE (4 - Booster for Pfizer series) [code = COVID-19 VACCINE (4 - Booster for Pfizer series)] [facility] Scheduled Test 2022-04-16 00:00:00 COVID-19 VACCINE (4 - Booster for Pfizer series) [code = COVID-19 VACCINE (4 - Booster for Pfizer series)] [facility] Scheduled Test 2022-04-16 00:00:00 COVID-19 VACCINE (4 - Booster for Pfizer series) [code = COVID-19 VACCINE (4 - Booster for Pfizer series)] [facility] Scheduled Test 2022-04-16 00:00:00 COVID-19 VACCINE (4 - Booster for Pfizer series) [code = COVID-19 VACCINE (4 - Booster for Pfizer series)] [facility] Scheduled Test 2022-04-16 00:00:00 COVID-19 VACCINE (4 - Booster for Pfizer series) [code = COVID-19 VACCINE (4 - Booster for Pfizer series)] [facility] Scheduled Test 2022-04-16 00:00:00 COVID-19 VACCINE (4 - Booster for Pfizer series) [code = COVID-19 VACCINE (4 - Booster for Pfizer series)] [facility] Scheduled Test 2022-04-16 00:00:00 COVID-19 VACCINE (4 - Booster for Pfizer series) [code = COVID-19 VACCINE (4 - Booster for Pfizer series)] [facility] Scheduled Test 2022-04-16 00:00:00 COVID-19 VACCINE (4 - Booster for Pfizer series) [code = COVID-19 VACCINE (4 - Booster for Pfizer series)] [facility] Scheduled Test 2022-04-16 00:00:00 COVID-19 VACCINE (4 - Booster for Pfizer series) [code = COVID-19 VACCINE (4 - Booster for Pfizer series)] [facility] Scheduled Test 2022-04-16 00:00:00 COVID-19 VACCINE (4 - Pfizer series) [code = COVID-19 VACCINE (4 - Pfizer series)] [facility] Scheduled Test 2022-04-16 00:00:00 COVID-19 VACCINE (4 - Pfizer series) [code = COVID-19 VACCINE (4 - Pfizer series)] [facility] Scheduled Test 2022-04-16 00:00:00 COVID-19 VACCINE (4 - Pfizer series) [code = COVID-19 VACCINE (4 - Pfizer series)] [facility] Scheduled Test 2022-04-16 00:00:00 COVID-19 VACCINE (4 - Pfizer series) [code = COVID-19 VACCINE (4 - Pfizer series)] [facility] Scheduled Test 2022-04-16 00:00:00 COVID-19 VACCINE (4 - Booster for Pfizer series) [code = COVID-19 VACCINE (4 - Booster for Pfizer series)] [facility] Scheduled Test 2022-04-16 00:00:00 COVID-19 VACCINE (4 - Pfizer series) [code = COVID-19 VACCINE (4 - Pfizer series)] [facility] Scheduled Test 2022-03-20 00:00:00 INFLUENZA VACCINE (#1) [code = INFLUENZA VACCINE (#1)] [facility] Scheduled Test 2022-03-20 00:00:00 INFLUENZA VACCINE (#1) [code = INFLUENZA VACCINE (#1)] [facility] Scheduled Test 2022-03-20 00:00:00 INFLUENZA VACCINE (#1) [code = INFLUENZA VACCINE (#1)] [facility] Scheduled Test 2022-03-20 00:00:00 INFLUENZA VACCINE (#1) [code = INFLUENZA VACCINE (#1)] [facility] Scheduled Test 2022-01-14 00:00:00 SHINGLES VACCINES (1 of 2) [code = SHINGLES VACCINES (1 of 2)] [facility] Scheduled Test 2022-01-14 00:00:00 SHINGLES VACCINES (1 of 2) [code = SHINGLES VACCINES (1 of 2)] [facility] Scheduled Test 2022-01-14 00:00:00 SHINGLES VACCINES (1 of 2) [code = SHINGLES VACCINES (1 of 2)] [facility] Scheduled Test 2022-01-14 00:00:00 SHINGLES VACCINES (1 of 2) [code = SHINGLES VACCINES (1 of 2)] [facility] Scheduled Test 2022-01-14 00:00:00 SHINGLES VACCINES (1 of 2) [code = SHINGLES VACCINES (1 of 2)] [facility] Scheduled Test 2022-01-14 00:00:00 SHINGLES VACCINES (1 of 2) [code = SHINGLES VACCINES (1 of 2)] [facility] Scheduled Test 2022-01-14 00:00:00 SHINGLES VACCINES (1 of 2) [code = SHINGLES VACCINES (1 of 2)] [facility] Scheduled Test 2022-01-14 00:00:00 SHINGLES VACCINES (1 of 2) [code = SHINGLES VACCINES (1 of 2)] [facility] Scheduled Test 2022-01-14 00:00:00 SHINGLES VACCINES (1 of 2) [code = SHINGLES VACCINES (1 of 2)] [facility] Scheduled Test 2022-01-14 00:00:00 SHINGLES VACCINES (1 of 2) [code = SHINGLES VACCINES (1 of 2)] [facility] Scheduled Test 2022-01-14 00:00:00 SHINGLES VACCINES (1 of 2) [code = SHINGLES VACCINES (1 of 2)] [facility] Scheduled Test 2022-01-14 00:00:00 SHINGLES VACCINES (1 of 2) [code = SHINGLES VACCINES (1 of 2)] [facility] Scheduled Test 2022-01-14 00:00:00 SHINGLES VACCINES (1 of 2) [code = SHINGLES VACCINES (1 of 2)] [facility] Scheduled Test 2022-01-14 00:00:00 SHINGLES VACCINES (1 of 2) [code = SHINGLES VACCINES (1 of 2)] [facility] Scheduled Test 2022-01-14 00:00:00 SHINGLES VACCINES (1 of 2) [code = SHINGLES VACCINES (1 of 2)] [facility] Scheduled Test 2022-01-14 00:00:00 Screening for malignant neoplasm of lung (procedure) [code = [id number]] [facility] Scheduled Test 2022-01-14 00:00:00 SHINGLES VACCINES (1 of 2) [code = SHINGLES VACCINES (1 of 2)] [facility] Scheduled Test 2022-01-14 00:00:00 Screening for malignant neoplasm of lung (procedure) [code = [id number]] [facility] Scheduled Test 2022-01-14 00:00:00 SHINGLES VACCINES (1 of 2) [code = SHINGLES VACCINES (1 of 2)] [facility] Scheduled Test 2022-01-14 00:00:00 Screening for malignant neoplasm of lung (procedure) [code = [id number]] [facility] Scheduled Test 2022-01-14 00:00:00 SHINGLES VACCINES (1 of 2) [code = SHINGLES VACCINES (1 of 2)] [facility] Scheduled Test 2022-01-14 00:00:00 Screening for malignant neoplasm of lung (procedure) [code = [id number]] [facility] Scheduled Test 2022-01-14 00:00:00 SHINGLES VACCINES (1 of 2) [code = SHINGLES VACCINES (1 of 2)] [facility] Scheduled Test 2022-01-14 00:00:00 Screening for malignant neoplasm of lung (procedure) [code = [id number]] [facility] Scheduled Test 2022-01-14 00:00:00 SHINGLES VACCINES (1 of 2) [code = SHINGLES VACCINES (1 of 2)] [facility] Scheduled Test 2022-01-14 00:00:00 Screening for malignant neoplasm of lung (procedure) [code = [id number]] [facility] Scheduled Test 2022-01-14 00:00:00 SHINGLES VACCINES (1 of 2) [code = SHINGLES VACCINES (1 of 2)] [facility] Scheduled Test 2022-01-14 00:00:00 Screening for malignant neoplasm of lung (procedure) [code = [id number]] [facility] Scheduled Test 2022-01-14 00:00:00 SHINGLES VACCINES (1 of 2) [code = SHINGLES VACCINES (1 of 2)] [facility] Scheduled Test 2022-01-14 00:00:00 Screening for malignant neoplasm of lung (procedure) [code = [id number]] [facility] Scheduled Test 2022-01-14 00:00:00 SHINGLES VACCINES (1 of 2) [code = SHINGLES VACCINES (1 of 2)] [facility] Scheduled Test 2022-01-14 00:00:00 Screening for malignant neoplasm of lung (procedure) [code = [id number]] [facility] Scheduled Test 2022-01-14 00:00:00 SHINGLES VACCINES (1 of 2) [code = SHINGLES VACCINES (1 of 2)] [facility] Scheduled Test 2022-01-14 00:00:00 Screening for malignant neoplasm of lung (procedure) [code = [id number]] [facility] Scheduled Test 2022-01-14 00:00:00 SHINGLES VACCINES (1 of 2) [code = SHINGLES VACCINES (1 of 2)] [facility] Scheduled Test 2022-01-14 00:00:00 Screening for malignant neoplasm of lung (procedure) [code = [id number]] [facility] Scheduled Test 2022-01-14 00:00:00 SHINGLES VACCINES (1 of 2) [code = SHINGLES VACCINES (1 of 2)] [facility] Scheduled Test 2022-01-14 00:00:00 Screening for malignant neoplasm of lung (procedure) [code = [id number]] [facility] Scheduled Test 2022-01-14 00:00:00 SHINGLES VACCINES (1 of 2) [code = SHINGLES VACCINES (1 of 2)] [facility] Future Scheduled Test 2022-01-14 00:00:00 Screening for malignant neoplasm of lung (procedure) [code = [id number]] [facility] Future Scheduled Test 2022-01-14 00:00:00 SHINGLES VACCINES (1 of 2) [code = SHINGLES VACCINES (1 of 2)] [facility] Future Scheduled Test 2022-01-14 00:00:00 Screening for malignant neoplasm of lung (procedure) [code = [id number]] [facility] Future Scheduled Test 2022-01-14 00:00:00 SHINGLES VACCINES (1 of 2) [code = SHINGLES VACCINES (1 of 2)] [facility] Future Scheduled Test 2022-01-14 00:00:00 Screening for malignant neoplasm of lung (procedure) [code = [id number]] [facility] Future Scheduled Test 2022-01-14 00:00:00 SHINGLES VACCINES (1 of 2) [code = SHINGLES VACCINES (1 of 2)] [facility] Future Scheduled Test 2022-01-14 00:00:00 Screening for malignant neoplasm of lung (procedure) [code = [id number]] [facility] Future Scheduled Test 2022-01-14 00:00:00 SHINGLES VACCINES (1 of 2) [code = SHINGLES VACCINES (1 of 2)] [facility] Future Scheduled Test 2022-01-14 00:00:00 Screening for malignant neoplasm of lung (procedure) [code = [id number]] [facility] Future Scheduled Test 2022-01-14 00:00:00 SHINGLES VACCINES (1 of 2) [code = SHINGLES VACCINES (1 of 2)] [facility] Future Scheduled Test 2022-01-14 00:00:00 Screening for malignant neoplasm of lung (procedure) [code = [id number]] [facility] Future Scheduled Test 2022-01-14 00:00:00 SHINGLES VACCINES (1 of 2) [code = SHINGLES VACCINES (1 of 2)] [facility] Future Scheduled Test 2022-01-14 00:00:00 Screening for malignant neoplasm of lung (procedure) [code = 213888747] [facility] Future Scheduled Test 2022-01-14 00:00:00 Screening for malignant neoplasm of lung (procedure) [code = 784575892] [facility] Future Scheduled Test 2022-01-14 00:00:00 SHINGLES VACCINES (1 of 2) [code = SHINGLES VACCINES (1 of 2)] [facility] Future Scheduled Test 2022-01-14 00:00:00 SHINGLES VACCINES (1 of 2) [code = SHINGLES VACCINES (1 of 2)] [facility] Future Scheduled Test 2022-01-14 00:00:00 Screening for malignant neoplasm of lung (procedure) [code = 740466936] [facility] Future Scheduled Test 2022-01-14 00:00:00 SHINGLES VACCINES (1 of 2) [code = SHINGLES VACCINES (1 of 2)] [facility] Future Scheduled Test 2022-01-14 00:00:00 Screening for malignant neoplasm of lung (procedure) [code = 646014010] [facility] Future Scheduled Test 2022-01-14 00:00:00 SHINGLES VACCINES (1 of 2) [code = SHINGLES VACCINES (1 of 2)] [facility] Future Scheduled Test 2022-01-14 00:00:00 Screening for malignant neoplasm of lung (procedure) [code = [id number]] [facility] Future Scheduled Test 2022-01-14 00:00:00 SHINGLES VACCINES (1 of 2) [code = SHINGLES VACCINES (1 of 2)] [facility] Future Scheduled Test 2022-01-14 00:00:00 Screening for malignant neoplasm of lung (procedure) [code = 895455557] [facility] Future Scheduled Test 2022-01-14 00:00:00 Screening for malignant neoplasm of lung (procedure) [code = 001230297] [facility] Future Scheduled Test 2022-01-14 00:00:00 SHINGLES VACCINES (1 of 2) [code = SHINGLES VACCINES (1 of 2)] [facility] Future Scheduled Test 2022-01-14 00:00:00 SHINGLES VACCINES (1 of 2) [code = SHINGLES VACCINES (1 of 2)] [facility] Future Scheduled Test 2022-01-14 00:00:00 Screening for malignant neoplasm of lung (procedure) [code = 424274693] [facility] Future Scheduled Test 2022-01-14 00:00:00 SHINGLES VACCINES (1 of 2) [code = SHINGLES VACCINES (1 of 2)] [facility] Future Scheduled Test 2022-01-14 00:00:00 Screening for malignant neoplasm of lung (procedure) [code = 532449511] [facility] Future Scheduled Test 2022-01-14 00:00:00 SHINGLES VACCINES (1 of 2) [code = SHINGLES VACCINES (1 of 2)] [facility] Future Scheduled Test 2022-01-14 00:00:00 Screening for malignant neoplasm of lung (procedure) [code = 426409144] [facility] Future Scheduled Test 2022-01-14 00:00:00 SHINGLES VACCINES (1 of 2) [code = SHINGLES VACCINES (1 of 2)] [facility] Future Scheduled Test 2022-01-14 00:00:00 Screening for malignant neoplasm of lung (procedure) [code = 829404996] [facility] Future Scheduled Test 2022-01-14 00:00:00 SHINGLES VACCINES (1 of 2) [code = SHINGLES VACCINES (1 of 2)] [facility] Future Scheduled Test 2022-01-14 00:00:00 Screening for malignant neoplasm of lung (procedure) [code = 487250127] [facility] Future Scheduled Test 2022-01-14 00:00:00 SHINGLES VACCINES (1 of 2) [code = SHINGLES VACCINES (1 of 2)] [facility] Future Scheduled Test 2022-01-14 00:00:00 Screening for malignant neoplasm of lung (procedure) [code = 206707383] [facility] Future Scheduled Test 2022-01-14 00:00:00 Screening for malignant neoplasm of lung (procedure) [code = 908624516] [facility] Future Scheduled Test 2022-01-14 00:00:00 SHINGLES VACCINES (1 of 2) [code = SHINGLES VACCINES (1 of 2)] [facility] Future Scheduled Test 2022-01-14 00:00:00 SHINGLES VACCINES (1 of 2) [code = SHINGLES VACCINES (1 of 2)] [facility] Future Scheduled Test 2022-01-14 00:00:00 Screening for malignant neoplasm of lung (procedure) [code = 873237529] [facility] Future Scheduled Test 2022-01-14 00:00:00 SHINGLES VACCINES (1 of 2) [code = SHINGLES VACCINES (1 of 2)] [facility] Future Scheduled Test 2022-01-14 00:00:00 Screening for malignant neoplasm of lung (procedure) [code = 546863801] [facility] Future Scheduled Test 2022-01-14 00:00:00 SHINGLES VACCINES (1 of 2) [code = SHINGLES VACCINES (1 of 2)] [facility] Future Scheduled Test 2022-01-14 00:00:00 Screening for malignant neoplasm of lung (procedure) [code = 260801600] [facility] Future Scheduled Test 2022-01-14 00:00:00 SHINGLES VACCINES (1 of 2) [code = SHINGLES VACCINES (1 of 2)] [facility] Future Scheduled Test 2022-01-14 00:00:00 Screening for malignant neoplasm of lung (procedure) [code = 023846452] [facility] Future Scheduled Test 2022-01-14 00:00:00 SHINGLES VACCINES (1 of 2) [code = SHINGLES VACCINES (1 of 2)] [facility] Future Scheduled Test 2022-01-14 00:00:00 Screening for malignant neoplasm of lung (procedure) [code = 284982717] [facility] Future Scheduled Test 2022-01-14 00:00:00 SHINGLES VACCINES (1 of 2) [code = SHINGLES VACCINES (1 of 2)] [facility] Future Scheduled Test 2022-01-14 00:00:00 Screening for malignant neoplasm of lung (procedure) [code = 779250498] [facility] Future Scheduled Test 2022-01-14 00:00:00 SHINGLES VACCINES (1 of 2) [code = SHINGLES VACCINES (1 of 2)] [facility] Future Scheduled Test 2022-01-14 00:00:00 Screening for malignant neoplasm of lung (procedure) [code = 314911047] [facility] Future Scheduled Test 2022-01-14 00:00:00 SHINGLES VACCINES (1 of 2) [code = SHINGLES VACCINES (1 of 2)] [facility] Future Scheduled Test 2022-01-14 00:00:00 Screening for malignant neoplasm of lung (procedure) [code = 631084791] [facility] Future Scheduled Test 2022-01-14 00:00:00 SHINGLES VACCINES (1 of 2) [code = SHINGLES VACCINES (1 of 2)] [facility] Future Scheduled Test 2022-01-14 00:00:00 Screening for malignant neoplasm of lung (procedure) [code = 086095740] [facility] Future Scheduled Test 2022-01-14 00:00:00 SHINGLES VACCINES (1 of 2) [code = SHINGLES VACCINES (1 of 2)] [facility] Future Scheduled Test 2022-01-14 00:00:00 Screening for malignant neoplasm of lung (procedure) [code = 903713074] [facility] Future Scheduled Test 2022-01-14 00:00:00 SHINGLES VACCINES (1 of 2) [code = SHINGLES VACCINES (1 of 2)] [facility] Future Scheduled Test 2022-01-14 00:00:00 Screening for malignant neoplasm of lung (procedure) [code = 024647697] [facility] Future Scheduled Test 2022-01-14 00:00:00 SHINGLES VACCINES (1 of 2) [code = SHINGLES VACCINES (1 of 2)] [facility] Future Scheduled Test 2022-01-14 00:00:00 Screening for malignant neoplasm of lung (procedure) [code = 084465942] [facility] Future Scheduled Test 2022-01-14 00:00:00 SHINGLES VACCINES (1 of 2) [code = SHINGLES VACCINES (1 of 2)] [facility] Future Scheduled Test 2022-01-14 00:00:00 Screening for malignant neoplasm of lung (procedure) [code = 874991702] [facility] Future Scheduled Test 2022-01-14 00:00:00 SHINGLES VACCINES (1 of 2) [code = SHINGLES VACCINES (1 of 2)] [facility] Future Scheduled Test 2022-01-14 00:00:00 Screening for malignant neoplasm of lung (procedure) [code = 016998170] [facility] Future Scheduled Test 2022-01-14 00:00:00 SHINGLES VACCINES (1 of 2) [code = SHINGLES VACCINES (1 of 2)] [facility] Future Scheduled Test 2022-01-14 00:00:00 SHINGLES VACCINES (1 of 2) [code = SHINGLES VACCINES (1 of 2)] [facility] Future Scheduled Test 2022-01-14 00:00:00 SHINGLES VACCINES (1 of 2) [code = SHINGLES VACCINES (1 of 2)] [facility] Future Scheduled Test 2022-01-14 00:00:00 Screening for malignant neoplasm of lung (procedure) [code = 774227404] [facility] Future Scheduled Test 2022-01-14 00:00:00 SHINGLES VACCINES (1 of 2) [code = SHINGLES VACCINES (1 of 2)] [facility] Future Scheduled Test 2022-01-14 00:00:00 Screening for malignant neoplasm of lung (procedure) [code = 312980394] [facility] Future Scheduled Test 2022-01-14 00:00:00 SHINGLES VACCINES (1 of 2) [code = SHINGLES VACCINES (1 of 2)] [facility] Future Scheduled Test 2022-01-14 00:00:00 Screening for malignant neoplasm of lung (procedure) [code = 090338303] [facility] Future Scheduled Test 2022-01-14 00:00:00 SHINGLES VACCINES (1 of 2) [code = SHINGLES VACCINES (1 of 2)] [facility] Future Scheduled Test 2022-01-14 00:00:00 Screening for malignant neoplasm of lung (procedure) [code = 202313737] [facility] Future Scheduled Test 2022-01-14 00:00:00 SHINGLES VACCINES (1 of 2) [code = SHINGLES VACCINES (1 of 2)] [facility] Future Scheduled Test 2022-01-14 00:00:00 Screening for malignant neoplasm of lung (procedure) [code = 283141963] [facility] Future Scheduled Test 2022-01-14 00:00:00 SHINGLES VACCINES (1 of 2) [code = SHINGLES VACCINES (1 of 2)] [facility] Future Scheduled Test 2022-01-14 00:00:00 Screening for malignant neoplasm of lung (procedure) [code = 599275307] [facility] Future Scheduled Test 2022-01-14 00:00:00 SHINGLES VACCINES (1 of 2) [code = SHINGLES VACCINES (1 of 2)] [facility] Future Scheduled Test 2022-01-14 00:00:00 Screening for malignant neoplasm of lung (procedure) [code = 542582413] [facility] Future Scheduled Test 2022-01-14 00:00:00 SHINGLES VACCINES (1 of 2) [code = SHINGLES VACCINES (1 of 2)] [facility] Future Scheduled Test 2013-12-15 00:00:00 PNEUMOCOCCAL VACCINE 0-64 YRS (2 - PCV) [code = PNEUMOCOCCAL VACCINE 0-64 YRS (2 - PCV)] [facility] Future Scheduled Test 2013-12-15 00:00:00 PNEUMOCOCCAL VACCINE 0-64 YRS (2 - PCV) [code = PNEUMOCOCCAL VACCINE 0-64 YRS (2 - PCV)] [facility] Future Scheduled Test 2013-12-15 00:00:00 PNEUMOCOCCAL VACCINE 0-64 YRS (2 - PCV) [code = PNEUMOCOCCAL VACCINE 0-64 YRS (2 - PCV)] [facility] Future Scheduled Test 2013-12-15 00:00:00 PNEUMOCOCCAL VACCINE 0-64 YRS (2 - PCV) [code = PNEUMOCOCCAL VACCINE 0-64 YRS (2 - PCV)] [facility] Future Scheduled Test 2013-12-15 00:00:00 Pneumococcal Vaccine: 0-64 Years (2 - PCV) [code = Pneumococcal Vaccine: 0-64 Years (2 - PCV)] [facility] Future Scheduled Test 2013-12-15 00:00:00 Pneumococcal Vaccine: 0-64 Years (2 - PCV) [code = Pneumococcal Vaccine: 0-64 Years (2 - PCV)] [facility] Future Scheduled Test 2013-12-15 00:00:00 Pneumococcal Vaccine: 0-64 Years (2 - PCV) [code = Pneumococcal Vaccine: 0-64 Years (2 - PCV)] [facility] Future Scheduled Test 2013-12-15 00:00:00 Pneumococcal Vaccine: 0-64 Years (2 - PCV) [code = Pneumococcal Vaccine: 0-64 Years (2 - PCV)] [facility] Future Scheduled Test 2013-12-15 00:00:00 Pneumococcal Vaccine: 0-64 Years (2 - PCV) [code = Pneumococcal Vaccine: 0-64 Years (2 - PCV)] [facility] Future Scheduled Test 2013-12-15 00:00:00 Pneumococcal Vaccine: 0-64 Years (2 - PCV) [code = Pneumococcal Vaccine: 0-64 Years (2 - PCV)] [facility] Future Scheduled Test 2013-12-15 00:00:00 Pneumococcal Vaccine: 0-64 Years (2 - PCV) [code = Pneumococcal Vaccine: 0-64 Years (2 - PCV)] [facility] Future Scheduled Test 2013-12-15 00:00:00 Pneumococcal Vaccine: 0-64 Years (2 - PCV) [code = Pneumococcal Vaccine: 0-64 Years (2 - PCV)] [facility] Future Scheduled Test 2013-12-15 00:00:00 Pneumococcal Vaccine: 0-64 Years (2 - PCV) [code = Pneumococcal Vaccine: 0-64 Years (2 - PCV)] [facility] Future Scheduled Test 2013-12-15 00:00:00 Pneumococcal Vaccine: 0-64 Years (2 - PCV) [code = Pneumococcal Vaccine: 0-64 Years (2 - PCV)] [facility] Future Scheduled Test 2013-12-15 00:00:00 Pneumococcal Vaccine: 0-64 Years (2 - PCV) [code = Pneumococcal Vaccine: 0-64 Years (2 - PCV)] [facility] Future Scheduled Test 2013-12-15 00:00:00 Pneumococcal Vaccine: 0-64 Years (2 - PCV) [code = Pneumococcal Vaccine: 0-64 Years (2 - PCV)] [facility] Future Scheduled Test 2013-12-15 00:00:00 Pneumococcal Vaccine: 0-64 Years (2 - PCV) [code = Pneumococcal Vaccine: 0-64 Years (2 - PCV)] [facility] Future Scheduled Test 2013-12-15 00:00:00 Pneumococcal Vaccine: 0-64 Years (2 - PCV) [code = Pneumococcal Vaccine: 0-64 Years (2 - PCV)] [facility] Future Scheduled Test 2013-12-15 00:00:00 Pneumococcal Vaccine: 0-64 Years (2 - PCV) [code = Pneumococcal Vaccine: 0-64 Years (2 - PCV)] [facility] Future Scheduled Test 2013-12-15 00:00:00 Pneumococcal Vaccine: 0-64 Years (2 - PCV) [code = Pneumococcal Vaccine: 0-64 Years (2 - PCV)] [facility] Future Scheduled Test 2013-12-15 00:00:00 Pneumococcal Vaccine: 0-64 Years (2 - PCV) [code = Pneumococcal Vaccine: 0-64 Years (2 - PCV)] [facility] Future Scheduled Test 2013-12-15 00:00:00 Pneumococcal Vaccine: 0-64 Years (2 - PCV) [code = Pneumococcal Vaccine: 0-64 Years (2 - PCV)] [facility] Future Scheduled Test 2013-12-15 00:00:00 Pneumococcal Vaccine: 0-64 Years (2 - PCV) [code = Pneumococcal Vaccine: 0-64 Years (2 - PCV)] [facility] Future Scheduled Test 2013-12-15 00:00:00 Pneumococcal Vaccine: 0-64 Years (2 - PCV) [code = Pneumococcal Vaccine: 0-64 Years (2 - PCV)] [facility] Future Scheduled Test 2013-12-15 00:00:00 Pneumococcal Vaccine: 0-64 Years (2 of 2 - PCV) [code = Pneumococcal Vaccine: 0-64 Years (2 of 2 - PCV)] [facility] Future Scheduled Test 2013-12-15 00:00:00 Pneumococcal Vaccine: 0-64 Years (2 of 2 - PCV) [code = Pneumococcal Vaccine: 0-64 Years (2 of 2 - PCV)] [facility] Future Scheduled Test 2013-12-15 00:00:00 Pneumococcal Vaccine: 0-64 Years (2 of 2 - PCV) [code = Pneumococcal Vaccine: 0-64 Years (2 of 2 - PCV)] [facility] Future Scheduled Test 2013-12-15 00:00:00 Pneumococcal Vaccine: 0-64 Years (2 of 2 - PCV) [code = Pneumococcal Vaccine: 0-64 Years (2 of 2 - PCV)] [facility] Future Scheduled Test 2013-12-15 00:00:00 Pneumococcal Vaccine: 0-64 Years (2 of 2 - PCV) [code = Pneumococcal Vaccine: 0-64 Years (2 of 2 - PCV)] [facility] Future Scheduled Test 2013-12-15 00:00:00 Pneumococcal Vaccine: 0-64 Years (2 of 2 - PCV) [code = Pneumococcal Vaccine: 0-64 Years (2 of 2 - PCV)] [facility] Future Scheduled Test 2013-12-15 00:00:00 Pneumococcal Vaccine: 0-64 Years (2 of 2 - PCV) [code = Pneumococcal Vaccine: 0-64 Years (2 of 2 - PCV)] [facility] Future Scheduled Test 2013-12-15 00:00:00 Pneumococcal Vaccine: 0-64 Years (2 of 2 - PCV) [code = Pneumococcal Vaccine: 0-64 Years (2 of 2 - PCV)] [facility] Future Scheduled Test 2013-12-15 00:00:00 Pneumococcal Vaccine: 0-64 Years (2 of 2 - PCV) [code = Pneumococcal Vaccine: 0-64 Years (2 of 2 - PCV)] [facility] Future Scheduled Test 2013-12-15 00:00:00 Pneumococcal Vaccine: 0-64 Years (2 of 2 - PCV) [code = Pneumococcal Vaccine: 0-64 Years (2 of 2 - PCV)] [facility] Future Scheduled Test 2013-12-15 00:00:00 Pneumococcal Vaccine: 0-64 Years (2 of 2 - PCV) [code = Pneumococcal Vaccine: 0-64 Years (2 of 2 - PCV)] [facility] Future Scheduled Test 2013-12-15 00:00:00 Pneumococcal Vaccine: 0-64 Years (2 of 2 - PCV) [code = Pneumococcal Vaccine: 0-64 Years (2 of 2 - PCV)] [facility] Future Scheduled Test 2013-12-15 00:00:00 Pneumococcal Vaccine: 0-64 Years (2 of 2 - PCV) [code = Pneumococcal Vaccine: 0-64 Years (2 of 2 - PCV)] [facility] Future Scheduled Test 2013-12-15 00:00:00 Pneumococcal Vaccine: 0-64 Years (2 of 2 - PCV) [code = Pneumococcal Vaccine: 0-64 Years (2 of 2 - PCV)] [facility] Future Scheduled Test 2013-12-15 00:00:00 Pneumococcal Vaccine: 0-64 Years (2 of 2 - PCV) [code = Pneumococcal Vaccine: 0-64 Years (2 of 2 - PCV)] [facility] Future Scheduled Test 2013-12-15 00:00:00 Pneumococcal Vaccine: 0-64 Years (2 of 2 - PCV) [code = Pneumococcal Vaccine: 0-64 Years (2 of 2 - PCV)] [facility] Future Scheduled Test 2013-12-15 00:00:00 Pneumococcal Vaccine: 0-64 Years (2 of 2 - PCV) [code = Pneumococcal Vaccine: 0-64 Years (2 of 2 - PCV)] [facility] Future Scheduled Test 2013-12-15 00:00:00 Pneumococcal Vaccine: 0-64 Years (2 of 2 - PCV) [code = Pneumococcal Vaccine: 0-64 Years (2 of 2 - PCV)] [facility] Future Scheduled Test 2013-12-15 00:00:00 Pneumococcal Vaccine: 0-64 Years (2 of 2 - PCV) [code = Pneumococcal Vaccine: 0-64 Years (2 of 2 - PCV)] [facility] Future Scheduled Test 2013-12-15 00:00:00 Pneumococcal Vaccine: 0-64 Years (2 - PCV) [code = Pneumococcal Vaccine: 0-64 Years (2 - PCV)] [facility] Future Scheduled Test 2013-12-15 00:00:00 Pneumococcal Vaccine: 0-64 Years (2 - PCV) [code = Pneumococcal Vaccine: 0-64 Years (2 - PCV)] [facility] Future Scheduled Test 2013-12-15 00:00:00 Pneumococcal Vaccine: 0-64 Years (2 - PCV) [code = Pneumococcal Vaccine: 0-64 Years (2 - PCV)] [facility] Future Scheduled Test 1993-01-14 00:00:00 Screening for malignant neoplasm of cervix (procedure) [code = [id number]] [facility] Future Scheduled Test 1993-01-14 00:00:00 Screening for malignant neoplasm of cervix (procedure) [code = 150977269] [facility] Future Scheduled Test 1993-01-14 00:00:00 Screening for malignant neoplasm of cervix (procedure) [code = 465459871] [facility] Future Scheduled Test 1993-01-14 00:00:00 Screening for malignant neoplasm of cervix (procedure) [code = 428728660] [facility] Future Scheduled Test 1993-01-14 00:00:00 Screening for malignant neoplasm of cervix (procedure) [code = 869628759] [facility] Future Scheduled Test 1993-01-14 00:00:00 Screening for malignant neoplasm of cervix (procedure) [code = 803391327] [facility] Future Scheduled Test 1993-01-14 00:00:00 Screening for malignant neoplasm of cervix (procedure) [code = 066525522] [facility] Future Scheduled Test 1993-01-14 00:00:00 Screening for malignant neoplasm of cervix (procedure) [code = 393195732] [facility] Future Scheduled Test 1993-01-14 00:00:00 Screening for malignant neoplasm of cervix (procedure) [code = 820305481] [facility] Future Scheduled Test 1993-01-14 00:00:00 Screening for malignant neoplasm of cervix (procedure) [code = 398878751] [facility] Future Scheduled Test 1993-01-14 00:00:00 Screening for malignant neoplasm of cervix (procedure) [code = 622818562] [facility] Future Scheduled Test 1993-01-14 00:00:00 Screening for malignant neoplasm of cervix (procedure) [code = 532641279] [facility] Future Scheduled Test 1993-01-14 00:00:00 Screening for malignant neoplasm of cervix (procedure) [code = 567088508] [facility] Future Scheduled Test 1993-01-14 00:00:00 Screening for malignant neoplasm of cervix (procedure) [code = 060824416] [facility] Future Scheduled Test 1993-01-14 00:00:00 Screening for malignant neoplasm of cervix (procedure) [code = 494575567] [facility] Future Scheduled Test 1993-01-14 00:00:00 Screening for malignant neoplasm of cervix (procedure) [code = 390101983] [facility] Future Scheduled Test 1993-01-14 00:00:00 Screening for malignant neoplasm of cervix (procedure) [code = 328090708] [facility] Future Scheduled Test 1993-01-14 00:00:00 Screening for malignant neoplasm of cervix (procedure) [code = 952511115] [facility] Future Scheduled Test 1993-01-14 00:00:00 Screening for malignant neoplasm of cervix (procedure) [code = 388926540] [facility] Future Scheduled Test 1993-01-14 00:00:00 Screening for malignant neoplasm of cervix (procedure) [code = 235239548] [facility] Future Scheduled Test 1993-01-14 00:00:00 Screening for malignant neoplasm of cervix (procedure) [code = 654297618] [facility] Future Scheduled Test 1993-01-14 00:00:00 Screening for malignant neoplasm of cervix (procedure) [code = 626362473] [facility] Future Scheduled Test 1993-01-14 00:00:00 Screening for malignant neoplasm of cervix (procedure) [code = 102563498] [facility] Future Scheduled Test 1993-01-14 00:00:00 Screening for malignant neoplasm of cervix (procedure) [code = 967801958] [facility] Future Scheduled Test 1993-01-14 00:00:00 Screening for malignant neoplasm of cervix (procedure) [code = 474044308] [facility] Future Scheduled Test 1993-01-14 00:00:00 Screening for malignant neoplasm of cervix (procedure) [code = 823594213] [facility] Future Scheduled Test 1993-01-14 00:00:00 Screening for malignant neoplasm of cervix (procedure) [code = 272693569] [facility] Future Scheduled Test 1993-01-14 00:00:00 Screening for malignant neoplasm of cervix (procedure) [code = 187078145] [facility] Future Scheduled Test 1993-01-14 00:00:00 Screening for malignant neoplasm of cervix (procedure) [code = 437417794] [facility] Future Scheduled Test 1993-01-14 00:00:00 Screening for malignant neoplasm of cervix (procedure) [code = 300771805] [facility] Future Scheduled Test 1993-01-14 00:00:00 Screening for malignant neoplasm of cervix (procedure) [code = 964972963] [facility] Future Scheduled Test 1993-01-14 00:00:00 Screening for malignant neoplasm of cervix (procedure) [code = 555175395] [facility] Future Scheduled Test 1993-01-14 00:00:00 Screening for malignant neoplasm of cervix (procedure) [code = [id number]] [facility] Future Scheduled Test 1993-01-14 00:00:00 Screening for malignant neoplasm of cervix (procedure) [code = [id number]] [facility] Future Scheduled Test 1993-01-14 00:00:00 Screening for malignant neoplasm of cervix (procedure) [code = [id number]] [facility] Future Scheduled Test 1993-01-14 00:00:00 Screening for malignant neoplasm of cervix (procedure) [code = [id number]] [facility] Future Scheduled Test 1993-01-14 00:00:00 Screening for malignant neoplasm of cervix (procedure) [code = [id number]] [facility] Future Scheduled Test 1993-01-14 00:00:00 Screening for malignant neoplasm of cervix (procedure) [code = [id number]] [facility] Future Scheduled Test 1993-01-14 00:00:00 Screening for malignant neoplasm of cervix (procedure) [code = [id number]] [facility] Future Scheduled Test 1993-01-14 00:00:00 Screening for malignant neoplasm of cervix (procedure) [code = [id number]] [facility] Future Scheduled Test 1993-01-14 00:00:00 Screening for malignant neoplasm of cervix (procedure) [code = [id number]] [facility] Future Scheduled Test 1993-01-14 00:00:00 Screening for malignant neoplasm of cervix (procedure) [code = [id number]] [facility] Future Scheduled Test 1993-01-14 00:00:00 Screening for malignant neoplasm of cervix (procedure) [code = 678692467] [facility] Future Scheduled Test 1993-01-14 00:00:00 Screening for malignant neoplasm of cervix (procedure) [code = [id number]] [facility] Future Scheduled Test 1993-01-14 00:00:00 Screening for malignant neoplasm of cervix (procedure) [code = 867451213] [facility] Future Scheduled Test 1993-01-14 00:00:00 Screening for malignant neoplasm of cervix (procedure) [code = [id number]] [facility] Future Scheduled Test 1993-01-14 00:00:00 Screening for malignant neoplasm of cervix (procedure) [code = 401788929] [facility] Future Scheduled Test 1993-01-14 00:00:00 Screening for malignant neoplasm of cervix (procedure) [code = 813544153] [facility] Future Scheduled Test 1993-01-14 00:00:00 Screening for malignant neoplasm of cervix (procedure) [code = 970366140] [facility] Future Scheduled Test 1993-01-14 00:00:00 Screening for malignant neoplasm of cervix (procedure) [code = 378348208] [facility] Future Scheduled Test 1993-01-14 00:00:00 Screening for malignant neoplasm of cervix (procedure) [code = [id number]] [facility] Future Scheduled Test 1993-01-14 00:00:00 Screening for malignant neoplasm of cervix (procedure) [code = 682845249] [facility] Future Scheduled Test 1993-01-14 00:00:00 Screening for malignant neoplasm of cervix (procedure) [code = 404053327] [facility] Future Scheduled Test 1993-01-14 00:00:00 Screening for malignant neoplasm of cervix (procedure) [code = 396659313] [facility] Future Scheduled Test 1993-01-14 00:00:00 Screening for malignant neoplasm of cervix (procedure) [code = 146166179] [facility] Future Scheduled Test 1993-01-14 00:00:00 Screening for malignant neoplasm of cervix (procedure) [code = 057732494] [facility] Future Scheduled Test 1993-01-14 00:00:00 Screening for malignant neoplasm of cervix (procedure) [code = 474221744] [facility] Future Scheduled Test 1993-01-14 00:00:00 Screening for malignant neoplasm of cervix (procedure) [code = 236362024] [facility] Future Scheduled Test 1993-01-14 00:00:00 Screening for malignant neoplasm of cervix (procedure) [code = 967715602] [facility] Future Scheduled Test 1993-01-14 00:00:00 Screening for malignant neoplasm of cervix (procedure) [code = 699257039] [facility] Future Scheduled Test 1993-01-14 00:00:00 Screening for malignant neoplasm of cervix (procedure) [code = 932825184] [facility] Future Scheduled Test 1993-01-14 00:00:00 Screening for malignant neoplasm of cervix (procedure) [code = 668054893] [facility] Future Scheduled Test 1993-01-14 00:00:00 Screening for malignant neoplasm of cervix (procedure) [code = 958473545] [facility] Future Scheduled Test 1993-01-14 00:00:00 Screening for malignant neoplasm of cervix (procedure) [code = 749066630] [facility] Future Scheduled Test 1993-01-14 00:00:00 Screening for malignant neoplasm of cervix (procedure) [code = 473005726] [facility] Future Scheduled Test 1993-01-14 00:00:00 Screening for malignant neoplasm of cervix (procedure) [code = 354728793] [facility] Future Scheduled Test 1993-01-14 00:00:00 Screening for malignant neoplasm of cervix (procedure) [code = 908565584] [facility] Future Scheduled Test 1993-01-14 00:00:00 Screening for malignant neoplasm of cervix (procedure) [code = 085787832] [facility] Future Scheduled Test 1993-01-14 00:00:00 Screening for malignant neoplasm of cervix (procedure) [code = 807313074] [facility] Future Scheduled Test 1993-01-14 00:00:00 Screening for malignant neoplasm of cervix (procedure) [code = 406319027] [facility] Future Scheduled Test 1991-01-14 00:00:00 DTAP/TDAP/TD VACCINES (1 - Tdap) [code = DTAP/TDAP/TD VACCINES (1 - Tdap)] [facility] Future Scheduled Test 1991-01-14 00:00:00 DTAP/TDAP/TD VACCINES (1 - Tdap) [code = DTAP/TDAP/TD VACCINES (1 - Tdap)] [facility] Future Scheduled Test 1991-01-14 00:00:00 DTAP/TDAP/TD VACCINES (1 - Tdap) [code = DTAP/TDAP/TD VACCINES (1 - Tdap)] [facility] Future Scheduled Test 1991-01-14 00:00:00 DTAP/TDAP/TD VACCINES (1 - Tdap) [code = DTAP/TDAP/TD VACCINES (1 - Tdap)] [facility] Future Scheduled Test 1991-01-14 00:00:00 DTAP/TDAP/TD VACCINES (1 - Tdap) [code = DTAP/TDAP/TD VACCINES (1 - Tdap)] [facility] Future Scheduled Test 1991-01-14 00:00:00 DTAP/TDAP/TD VACCINES (1 - Tdap) [code = DTAP/TDAP/TD VACCINES (1 - Tdap)] [facility] Future Scheduled Test 1991-01-14 00:00:00 DTAP/TDAP/TD VACCINES (1 - Tdap) [code = DTAP/TDAP/TD VACCINES (1 - Tdap)] [facility] Future Scheduled Test 1991-01-14 00:00:00 DTAP/TDAP/TD VACCINES (1 - Tdap) [code = DTAP/TDAP/TD VACCINES (1 - Tdap)] [facility] Future Scheduled Test 1991-01-14 00:00:00 DTAP/TDAP/TD VACCINES (1 - Tdap) [code = DTAP/TDAP/TD VACCINES (1 - Tdap)] [facility] Future Scheduled Test 1991-01-14 00:00:00 DTAP/TDAP/TD VACCINES (1 - Tdap) [code = DTAP/TDAP/TD VACCINES (1 - Tdap)] [facility] Future Scheduled Test 1991-01-14 00:00:00 DTAP/TDAP/TD VACCINES (1 - Tdap) [code = DTAP/TDAP/TD VACCINES (1 - Tdap)] [facility] Future Scheduled Test 1991-01-14 00:00:00 DTAP/TDAP/TD VACCINES (1 - Tdap) [code = DTAP/TDAP/TD VACCINES (1 - Tdap)] [facility] Future Scheduled Test 1991-01-14 00:00:00 DTAP/TDAP/TD VACCINES (1 - Tdap) [code = DTAP/TDAP/TD VACCINES (1 - Tdap)] [facility] Future Scheduled Test 1991-01-14 00:00:00 DTAP/TDAP/TD VACCINES (1 - Tdap) [code = DTAP/TDAP/TD VACCINES (1 - Tdap)] [facility] Future Scheduled Test 1991-01-14 00:00:00 DTAP/TDAP/TD VACCINES (1 - Tdap) [code = DTAP/TDAP/TD VACCINES (1 - Tdap)] [facility] Future Scheduled Test 1991-01-14 00:00:00 DTAP/TDAP/TD VACCINES (1 - Tdap) [code = DTAP/TDAP/TD VACCINES (1 - Tdap)] [facility] Future Scheduled Test 1991-01-14 00:00:00 DTAP/TDAP/TD VACCINES (1 - Tdap) [code = DTAP/TDAP/TD VACCINES (1 - Tdap)] [facility] Future Scheduled Test 1991-01-14 00:00:00 DTAP/TDAP/TD VACCINES (1 - Tdap) [code = DTAP/TDAP/TD VACCINES (1 - Tdap)] [facility] Future Scheduled Test 1991-01-14 00:00:00 DTAP/TDAP/TD VACCINES (1 - Tdap) [code = DTAP/TDAP/TD VACCINES (1 - Tdap)] [facility] Future Scheduled Test 1991-01-14 00:00:00 DTAP/TDAP/TD VACCINES (1 - Tdap) [code = DTAP/TDAP/TD VACCINES (1 - Tdap)] [facility] Future Scheduled Test 1991-01-14 00:00:00 DTAP/TDAP/TD VACCINES (1 - Tdap) [code = DTAP/TDAP/TD VACCINES (1 - Tdap)] [facility] Future Scheduled Test 1991-01-14 00:00:00 DTAP/TDAP/TD VACCINES (1 - Tdap) [code = DTAP/TDAP/TD VACCINES (1 - Tdap)] [facility] Future Scheduled Test 1991-01-14 00:00:00 DTAP/TDAP/TD VACCINES (1 - Tdap) [code = DTAP/TDAP/TD VACCINES (1 - Tdap)] [facility] Future Scheduled Test 1991-01-14 00:00:00 DTAP/TDAP/TD VACCINES (1 - Tdap) [code = DTAP/TDAP/TD VACCINES (1 - Tdap)] [facility] Future Scheduled Test 1991-01-14 00:00:00 DTAP/TDAP/TD VACCINES (1 - Tdap) [code = DTAP/TDAP/TD VACCINES (1 - Tdap)] [facility] Future Scheduled Test 1991-01-14 00:00:00 DTAP/TDAP/TD VACCINES (1 - Tdap) [code = DTAP/TDAP/TD VACCINES (1 - Tdap)] [facility] Future Scheduled Test 1991-01-14 00:00:00 DTAP/TDAP/TD VACCINES (1 - Tdap) [code = DTAP/TDAP/TD VACCINES (1 - Tdap)] [facility] Future Scheduled Test 1991-01-14 00:00:00 DTAP/TDAP/TD VACCINES (1 - Tdap) [code = DTAP/TDAP/TD VACCINES (1 - Tdap)] [facility] Future Scheduled Test 1991-01-14 00:00:00 DTAP/TDAP/TD VACCINES (1 - Tdap) [code = DTAP/TDAP/TD VACCINES (1 - Tdap)] [facility] Future Scheduled Test 1991-01-14 00:00:00 DTAP/TDAP/TD VACCINES (1 - Tdap) [code = DTAP/TDAP/TD VACCINES (1 - Tdap)] [facility] Future Scheduled Test 1991-01-14 00:00:00 DTAP/TDAP/TD VACCINES (1 - Tdap) [code = DTAP/TDAP/TD VACCINES (1 - Tdap)] [facility] Future Scheduled Test 1991-01-14 00:00:00 DTAP/TDAP/TD VACCINES (1 - Tdap) [code = DTAP/TDAP/TD VACCINES (1 - Tdap)] [facility] Future Scheduled Test 1991-01-14 00:00:00 DTAP/TDAP/TD VACCINES (1 - Tdap) [code = DTAP/TDAP/TD VACCINES (1 - Tdap)] [facility] Future Scheduled Test 1991-01-14 00:00:00 DTAP/TDAP/TD VACCINES (1 - Tdap) [code = DTAP/TDAP/TD VACCINES (1 - Tdap)] [facility] Future Scheduled Test 1991-01-14 00:00:00 DTAP/TDAP/TD VACCINES (1 - Tdap) [code = DTAP/TDAP/TD VACCINES (1 - Tdap)] [facility] Future Scheduled Test 1991-01-14 00:00:00 DTAP/TDAP/TD VACCINES (1 - Tdap) [code = DTAP/TDAP/TD VACCINES (1 - Tdap)] [facility] Future Scheduled Test 1991-01-14 00:00:00 DTAP/TDAP/TD VACCINES (1 - Tdap) [code = DTAP/TDAP/TD VACCINES (1 - Tdap)] [facility] Future Scheduled Test 1991-01-14 00:00:00 DTAP/TDAP/TD VACCINES (1 - Tdap) [code = DTAP/TDAP/TD VACCINES (1 - Tdap)] [facility] Future Scheduled Test 1991-01-14 00:00:00 DTAP/TDAP/TD VACCINES (1 - Tdap) [code = DTAP/TDAP/TD VACCINES (1 - Tdap)] [facility] Future Scheduled Test 1991-01-14 00:00:00 DTAP/TDAP/TD VACCINES (1 - Tdap) [code = DTAP/TDAP/TD VACCINES (1 - Tdap)] [facility] Future Scheduled Test 1991-01-14 00:00:00 DTAP/TDAP/TD VACCINES (1 - Tdap) [code = DTAP/TDAP/TD VACCINES (1 - Tdap)] [facility] Future Scheduled Test 1991-01-14 00:00:00 DTAP/TDAP/TD VACCINES (1 - Tdap) [code = DTAP/TDAP/TD VACCINES (1 - Tdap)] [facility] Future Scheduled Test 1991-01-14 00:00:00 DTAP/TDAP/TD VACCINES (1 - Tdap) [code = DTAP/TDAP/TD VACCINES (1 - Tdap)] [facility] Future Scheduled Test 1991-01-14 00:00:00 DTAP/TDAP/TD VACCINES (1 - Tdap) [code = DTAP/TDAP/TD VACCINES (1 - Tdap)] [facility] Future Scheduled Test 1991-01-14 00:00:00 DTAP/TDAP/TD VACCINES (1 - Tdap) [code = DTAP/TDAP/TD VACCINES (1 - Tdap)] [facility] Future Scheduled Test 1991-01-14 00:00:00 DTAP/TDAP/TD VACCINES (1 - Tdap) [code = DTAP/TDAP/TD VACCINES (1 - Tdap)] [facility] Future Scheduled Test 1991-01-14 00:00:00 DTAP/TDAP/TD VACCINES (1 - Tdap) [code = DTAP/TDAP/TD VACCINES (1 - Tdap)] [facility] Future Scheduled Test 1991-01-14 00:00:00 DTAP/TDAP/TD VACCINES (1 - Tdap) [code = DTAP/TDAP/TD VACCINES (1 - Tdap)] [facility] Future Scheduled Test 1991-01-14 00:00:00 DTAP/TDAP/TD VACCINES (1 - Tdap) [code = DTAP/TDAP/TD VACCINES (1 - Tdap)] [facility] Future Scheduled Test 1991-01-14 00:00:00 DTAP/TDAP/TD VACCINES (1 - Tdap) [code = DTAP/TDAP/TD VACCINES (1 - Tdap)] [facility] Future Scheduled Test 1991-01-14 00:00:00 DTAP/TDAP/TD VACCINES (1 - Tdap) [code = DTAP/TDAP/TD VACCINES (1 - Tdap)] [facility] Future Scheduled Test 1991-01-14 00:00:00 DTAP/TDAP/TD VACCINES (1 - Tdap) [code = DTAP/TDAP/TD VACCINES (1 - Tdap)] [facility] Future Scheduled Test 1991-01-14 00:00:00 DTAP/TDAP/TD VACCINES (1 - Tdap) [code = DTAP/TDAP/TD VACCINES (1 - Tdap)] [facility] Future Scheduled Test 1991-01-14 00:00:00 DTAP/TDAP/TD VACCINES (1 - Tdap) [code = DTAP/TDAP/TD VACCINES (1 - Tdap)] [facility] Future Scheduled Test 1991-01-14 00:00:00 DTAP/TDAP/TD VACCINES (1 - Tdap) [code = DTAP/TDAP/TD VACCINES (1 - Tdap)] [facility] Future Scheduled Test 1991-01-14 00:00:00 DTAP/TDAP/TD VACCINES (1 - Tdap) [code = DTAP/TDAP/TD VACCINES (1 - Tdap)] [facility] Future Scheduled Test 1991-01-14 00:00:00 DTAP/TDAP/TD VACCINES (1 - Tdap) [code = DTAP/TDAP/TD VACCINES (1 - Tdap)] [facility] Future Scheduled Test 1991-01-14 00:00:00 DTAP/TDAP/TD VACCINES (1 - Tdap) [code = DTAP/TDAP/TD VACCINES (1 - Tdap)] [facility] Future Scheduled Test 1991-01-14 00:00:00 DTAP/TDAP/TD VACCINES (1 - Tdap) [code = DTAP/TDAP/TD VACCINES (1 - Tdap)] [facility] Future Scheduled Test 1991-01-14 00:00:00 DTAP/TDAP/TD VACCINES (1 - Tdap) [code = DTAP/TDAP/TD VACCINES (1 - Tdap)] [facility] Future Scheduled Test 1991-01-14 00:00:00 DTAP/TDAP/TD VACCINES (1 - Tdap) [code = DTAP/TDAP/TD VACCINES (1 - Tdap)] [facility] Future Scheduled Test 1991-01-14 00:00:00 DTAP/TDAP/TD VACCINES (1 - Tdap) [code = DTAP/TDAP/TD VACCINES (1 - Tdap)] [facility] Future Scheduled Test 1991-01-14 00:00:00 DTAP/TDAP/TD VACCINES (1 - Tdap) [code = DTAP/TDAP/TD VACCINES (1 - Tdap)] [facility] Future Scheduled Test 1991-01-14 00:00:00 DTAP/TDAP/TD VACCINES (1 - Tdap) [code = DTAP/TDAP/TD VACCINES (1 - Tdap)] [facility] Future Scheduled Test 1991-01-14 00:00:00 DTAP/TDAP/TD VACCINES (1 - Tdap) [code = DTAP/TDAP/TD VACCINES (1 - Tdap)] [facility] Future Scheduled Test 1991-01-14 00:00:00 DTAP/TDAP/TD VACCINES (1 - Tdap) [code = DTAP/TDAP/TD VACCINES (1 - Tdap)] [facility] Future Scheduled Test 1991-01-14 00:00:00 DTAP/TDAP/TD VACCINES (1 - Tdap) [code = DTAP/TDAP/TD VACCINES (1 - Tdap)] [facility] Future Scheduled Test 1991-01-14 00:00:00 DTAP/TDAP/TD VACCINES (1 - Tdap) [code = DTAP/TDAP/TD VACCINES (1 - Tdap)] [facility] Future Scheduled Test 1991-01-14 00:00:00 DTAP/TDAP/TD VACCINES (1 - Tdap) [code = DTAP/TDAP/TD VACCINES (1 - Tdap)] [facility] Future Scheduled Test 1991-01-14 00:00:00 DTAP/TDAP/TD VACCINES (1 - Tdap) [code = DTAP/TDAP/TD VACCINES (1 - Tdap)] [facility] Future Scheduled Test 1990-01-14 00:00:00 HEPATITIS C SCREENING [code = HEPATITIS C SCREENING] [facility] Future Scheduled Test 1990-01-14 00:00:00 HEPATITIS C SCREENING [code = HEPATITIS C SCREENING] [facility] Future Scheduled Test 1990-01-14 00:00:00 HEPATITIS C SCREENING [code = HEPATITIS C SCREENING] [facility] Future Scheduled Test 1990-01-14 00:00:00 HEPATITIS C SCREENING [code = HEPATITIS C SCREENING] [facility] Future Scheduled Test 1990-01-14 00:00:00 HEPATITIS C SCREENING [code = HEPATITIS C SCREENING] [facility] Future Scheduled Test 1990-01-14 00:00:00 HEPATITIS C SCREENING [code = HEPATITIS C SCREENING] [facility] Future Scheduled Test 1990-01-14 00:00:00 HEPATITIS C SCREENING [code = HEPATITIS C SCREENING] [facility] Future Scheduled Test 1990-01-14 00:00:00 HEPATITIS C SCREENING [code = HEPATITIS C SCREENING] [facility] Future Scheduled Test 1990-01-14 00:00:00 HEPATITIS C SCREENING [code = HEPATITIS C SCREENING] [facility] Future Scheduled Test 1990-01-14 00:00:00 HEPATITIS C SCREENING [code = HEPATITIS C SCREENING] [facility] Future Scheduled Test 1990-01-14 00:00:00 HEPATITIS C SCREENING [code = HEPATITIS C SCREENING] [facility] Future Scheduled Test 1990-01-14 00:00:00 HEPATITIS C SCREENING [code = HEPATITIS C SCREENING] [facility] Future Scheduled Test 1990-01-14 00:00:00 HEPATITIS C SCREENING [code = HEPATITIS C SCREENING] [facility] Future Scheduled Test 1990-01-14 00:00:00 HEPATITIS C SCREENING [code = HEPATITIS C SCREENING] [facility] Future Scheduled Test 1990-01-14 00:00:00 HEPATITIS C SCREENING [code = HEPATITIS C SCREENING] [facility] Future Scheduled Test 1990-01-14 00:00:00 HEPATITIS C SCREENING [code = HEPATITIS C SCREENING] [facility] Future Scheduled Test 1990-01-14 00:00:00 HEPATITIS C SCREENING [code = HEPATITIS C SCREENING] [facility] Future Scheduled Test 1990-01-14 00:00:00 HEPATITIS C SCREENING [code = HEPATITIS C SCREENING] [facility] Future Scheduled Test 1990-01-14 00:00:00 HEPATITIS C SCREENING [code = HEPATITIS C SCREENING] [facility] Future Scheduled Test 1990-01-14 00:00:00 HEPATITIS C SCREENING [code = HEPATITIS C SCREENING] [facility] Future Scheduled Test 1990-01-14 00:00:00 HEPATITIS C SCREENING [code = HEPATITIS C SCREENING] [facility] Future Scheduled Test 1990-01-14 00:00:00 HEPATITIS C SCREENING [code = HEPATITIS C SCREENING] [facility] Future Scheduled Test 1990-01-14 00:00:00 HEPATITIS C SCREENING [code = HEPATITIS C SCREENING] [facility] Future Scheduled Test 1990-01-14 00:00:00 HEPATITIS C SCREENING [code = HEPATITIS C SCREENING] [facility] Future Scheduled Test 1990-01-14 00:00:00 HEPATITIS C SCREENING [code = HEPATITIS C SCREENING] [facility] Future Scheduled Test 1990-01-14 00:00:00 HEPATITIS C SCREENING [code = HEPATITIS C SCREENING] [facility] Future Scheduled Test 1990-01-14 00:00:00 HEPATITIS C SCREENING [code = HEPATITIS C SCREENING] [facility] Future Scheduled Test 1990-01-14 00:00:00 HEPATITIS C SCREENING [code = HEPATITIS C SCREENING] [facility] Future Scheduled Test 1990-01-14 00:00:00 HEPATITIS C SCREENING [code = HEPATITIS C SCREENING] [facility] Future Scheduled Test 1990-01-14 00:00:00 HEPATITIS C SCREENING [code = HEPATITIS C SCREENING] [facility] Future Scheduled Test 1990-01-14 00:00:00 HEPATITIS C SCREENING [code = HEPATITIS C SCREENING] [facility] Future Scheduled Test 1990-01-14 00:00:00 HEPATITIS C SCREENING [code = HEPATITIS C SCREENING] [facility] Future Scheduled Test 1990-01-14 00:00:00 HEPATITIS C SCREENING [code = HEPATITIS C SCREENING] [facility] Future Scheduled Test 1990-01-14 00:00:00 HEPATITIS C SCREENING [code = HEPATITIS C SCREENING] [facility] Future Scheduled Test 1990-01-14 00:00:00 HEPATITIS C SCREENING [code = HEPATITIS C SCREENING] [facility] Future Scheduled Test 1990-01-14 00:00:00 HEPATITIS C SCREENING [code = HEPATITIS C SCREENING] [facility] Future Scheduled Test 1990-01-14 00:00:00 HEPATITIS C SCREENING [code = HEPATITIS C SCREENING] [facility] Future Scheduled Test 1990-01-14 00:00:00 HEPATITIS C SCREENING [code = HEPATITIS C SCREENING] [facility] Future Scheduled Test 1990-01-14 00:00:00 HEPATITIS C SCREENING [code = HEPATITIS C SCREENING] [facility] Future Scheduled Test 1990-01-14 00:00:00 HEPATITIS C SCREENING [code = HEPATITIS C SCREENING] [facility] Future Scheduled Test 1990-01-14 00:00:00 HEPATITIS C SCREENING [code = HEPATITIS C SCREENING] [facility] Future Scheduled Test 1990-01-14 00:00:00 HEPATITIS C SCREENING [code = HEPATITIS C SCREENING] [facility] Future Scheduled Test 1990-01-14 00:00:00 HEPATITIS C SCREENING [code = HEPATITIS C SCREENING] [facility] Future Scheduled Test 1990-01-14 00:00:00 HEPATITIS C SCREENING [code = HEPATITIS C SCREENING] [facility] Future Scheduled Test 1990-01-14 00:00:00 HEPATITIS C SCREENING [code = HEPATITIS C SCREENING] [facility] Future Scheduled Test 1990-01-14 00:00:00 HEPATITIS C SCREENING [code = HEPATITIS C SCREENING] [facility] Future Scheduled Test 1990-01-14 00:00:00 HEPATITIS C SCREENING [code = HEPATITIS C SCREENING] [facility] Future Scheduled Test 1990-01-14 00:00:00 HEPATITIS C SCREENING [code = HEPATITIS C SCREENING] [facility] Future Scheduled Test 1990-01-14 00:00:00 HEPATITIS C SCREENING [code = HEPATITIS C SCREENING] [facility] Future Scheduled Test 1990-01-14 00:00:00 HEPATITIS C SCREENING [code = HEPATITIS C SCREENING] [facility] Future Scheduled Test 1990-01-14 00:00:00 HEPATITIS C SCREENING [code = HEPATITIS C SCREENING] [facility] Future Scheduled Test 1990-01-14 00:00:00 HEPATITIS C SCREENING [code = HEPATITIS C SCREENING] [facility] Future Scheduled Test 1990-01-14 00:00:00 HEPATITIS C SCREENING [code = HEPATITIS C SCREENING] [facility] Future Scheduled Test 1990-01-14 00:00:00 HEPATITIS C SCREENING [code = HEPATITIS C SCREENING] [facility] Future Scheduled Test 1990-01-14 00:00:00 HEPATITIS C SCREENING [code = HEPATITIS C SCREENING] [facility] Future Scheduled Test 1990-01-14 00:00:00 HEPATITIS C SCREENING [code = HEPATITIS C SCREENING] [facility] Future Scheduled Test 1990-01-14 00:00:00 HEPATITIS C SCREENING [code = HEPATITIS C SCREENING] [facility] Future Scheduled Test 1990-01-14 00:00:00 HEPATITIS C SCREENING [code = HEPATITIS C SCREENING] [facility] Future Scheduled Test 1990-01-14 00:00:00 HEPATITIS C SCREENING [code = HEPATITIS C SCREENING] [facility] Future Scheduled Test 1990-01-14 00:00:00 HEPATITIS C SCREENING [code = HEPATITIS C SCREENING] [facility] Future Scheduled Test 1990-01-14 00:00:00 HEPATITIS C SCREENING [code = HEPATITIS C SCREENING] [facility] Future Scheduled Test 1990-01-14 00:00:00 HEPATITIS C SCREENING [code = HEPATITIS C SCREENING] [facility] Future Scheduled Test 1990-01-14 00:00:00 HEPATITIS C SCREENING [code = HEPATITIS C SCREENING] [facility] Future Scheduled Test 1990-01-14 00:00:00 HEPATITIS C SCREENING [code = HEPATITIS C SCREENING] [facility] Future Scheduled Test 1990-01-14 00:00:00 HEPATITIS C SCREENING [code = HEPATITIS C SCREENING] [facility] Future Scheduled Test 1990-01-14 00:00:00 HEPATITIS C SCREENING [code = HEPATITIS C SCREENING] [facility] Future Scheduled Test 1990-01-14 00:00:00 HEPATITIS C SCREENING [code = HEPATITIS C SCREENING] [facility] Future Scheduled Test 1990-01-14 00:00:00 HEPATITIS C SCREENING [code = HEPATITIS C SCREENING] [facility] Future Scheduled Test 1990-01-14 00:00:00 HEPATITIS C SCREENING [code = HEPATITIS C SCREENING] [facility] Future Scheduled Test 1990-01-14 00:00:00 HEPATITIS C SCREENING [code = HEPATITIS C SCREENING] [facility] Future Scheduled Test 1987-01-14 00:00:00 Human immunodeficiency virus screening (procedure) [code = [id number]] [facility] Future Scheduled Test 1987-01-14 00:00:00 Human immunodeficiency virus screening (procedure) [code = [id number]] [facility] Future Scheduled Test 1984 00:00:00 Tobacco Cessation Counseling and Screening (12+) [code = Tobacco Cessation Counseling and Screening (12+)] [facility] Future Scheduled Test 1984 00:00:00 Tobacco Cessation Counseling and Screening (12+) [code = Tobacco Cessation Counseling and Screening (12+)] [facility] Future Scheduled Test 1984 00:00:00 Tobacco Cessation Counseling and Screening (12+) [code = Tobacco Cessation Counseling and Screening (12+)] [facility] Future Scheduled Test 1984 00:00:00 Tobacco Cessation Counseling and Screening (12+) [code = Tobacco Cessation Counseling and Screening (12+)] [facility] Future Scheduled Test 1984 00:00:00 Tobacco Cessation Counseling and Screening (12+) [code = Tobacco Cessation Counseling and Screening (12+)] [facility] Future Scheduled Test 1984 00:00:00 Tobacco Cessation Counseling and Screening (12+) [code = Tobacco Cessation Counseling and Screening (12+)] [facility] Scheduled Test 1984 00:00:00 Tobacco Cessation Counseling and Screening (12+) [code = Tobacco Cessation Counseling and Screening (12+)] [facility] Future Scheduled Test 1984 00:00:00 Tobacco Cessation Counseling and Screening (12+) [code = Tobacco Cessation Counseling and Screening (12+)] [facility] Scheduled Test 1984 00:00:00 Tobacco Cessation Counseling and Screening (12+) [code = Tobacco Cessation Counseling and Screening (12+)] [facility] Scheduled Test 1984 00:00:00 Tobacco Cessation Counseling and Screening (12+) [code = Tobacco Cessation Counseling and Screening (12+)] [facility] Scheduled Test 1984 00:00:00 Tobacco Cessation Counseling and Screening (12+) [code = Tobacco Cessation Counseling and Screening (12+)] [facility] Scheduled Test 1984 00:00:00 Tobacco Cessation Counseling and Screening (12+) [code = Tobacco Cessation Counseling and Screening (12+)] [facility] Future Scheduled Test 1984 00:00:00 Tobacco Cessation Counseling and Screening (12+) [code = Tobacco Cessation Counseling and Screening (12+)] [facility] Future Scheduled Test 1984 00:00:00 Tobacco Cessation Counseling and Screening (12+) [code = Tobacco Cessation Counseling and Screening (12+)] [facility] Future Scheduled Test 1984 00:00:00 Tobacco Cessation Counseling and Screening (12+) [code = Tobacco Cessation Counseling and Screening (12+)] [facility] Scheduled Test 1984 00:00:00 Tobacco Cessation Counseling and Screening (12+) [code = Tobacco Cessation Counseling and Screening (12+)] [facility] Future Scheduled Test 1984 00:00:00 Tobacco Cessation Counseling and Screening (12+) [code = Tobacco Cessation Counseling and Screening (12+)] [facility] Future Scheduled Test 1984 00:00:00 Tobacco Cessation Counseling and Screening (12+) [code = Tobacco Cessation Counseling and Screening (12+)] [facility] Future Scheduled Test 1984 00:00:00 Tobacco Cessation Counseling and Screening (12+) [code = Tobacco Cessation Counseling and Screening (12+)] [facility] Future Scheduled Test 1984 00:00:00 Tobacco Cessation Counseling and Screening (12+) [code = Tobacco Cessation Counseling and Screening (12+)] [facility] Future Scheduled Test 1984 00:00:00 Tobacco Cessation Counseling and Screening (12+) [code = Tobacco Cessation Counseling and Screening (12+)] [facility] Future Scheduled Test 1984 00:00:00 Tobacco Cessation Counseling and Screening (12+) [code = Tobacco Cessation Counseling and Screening (12+)] [facility] Future Scheduled Test 1984 00:00:00 Tobacco Cessation Counseling and Screening (12+) [code = Tobacco Cessation Counseling and Screening (12+)] [facility] Future Scheduled Test 1972 00:00:00 Screening for malignant neoplasm of breast (procedure) [code = [id number]] [facility] Future Scheduled Test 1972 00:00:00 CT Colonography (combo) [code = CT Colonography (combo)] [facility] Future Scheduled Test 1972 00:00:00 Screening for malignant neoplasm of colon (procedure) [code = 547502807] [facility] Future Scheduled Test 1972 00:00:00 Screening for malignant neoplasm of colon (procedure) [code = 616430031] [facility] Future Scheduled Test 1972 00:00:00 Screening for malignant neoplasm of colon (procedure) [code = 952802116] [facility] Future Scheduled Test 1972 00:00:00 Screening for malignant neoplasm of colon (procedure) [code = 006692638] [facility] Future Scheduled Test 1972 00:00:00 Sigmoidoscopy [code = Sigmoidoscopy] [facility] Future Scheduled Test 1972 00:00:00 Screening for malignant neoplasm of breast (procedure) [code = 747784993] [facility] Future Scheduled Test 1972 00:00:00 CT Colonography (combo) [code = CT Colonography (combo)] [facility] Future Scheduled Test 1972 00:00:00 Screening for malignant neoplasm of colon (procedure) [code = 749900441] [facility] Future Scheduled Test 1972 00:00:00 Screening for malignant neoplasm of colon (procedure) [code = 445820897] [facility] Future Scheduled Test 1972 00:00:00 Screening for malignant neoplasm of colon (procedure) [code = 734283930] [facility] Future Scheduled Test 1972 00:00:00 Screening for malignant neoplasm of colon (procedure) [code = 646224375] [facility] Future Scheduled Test 1972 00:00:00 Sigmoidoscopy [code = Sigmoidoscopy] [facility] Future Scheduled Test 1972 00:00:00 Screening for malignant neoplasm of breast (procedure) [code = 155823924] [facility] Future Scheduled Test 1972 00:00:00 CT Colonography (combo) [code = CT Colonography (combo)] [facility] Future Scheduled Test 1972 00:00:00 Screening for malignant neoplasm of colon (procedure) [code = 609425761] [facility] Future Scheduled Test 1972 00:00:00 Screening for malignant neoplasm of colon (procedure) [code = 254844555] [facility] Future Scheduled Test 1972 00:00:00 Screening for malignant neoplasm of colon (procedure) [code = 235613886] [facility] Future Scheduled Test 1972 00:00:00 Screening for malignant neoplasm of colon (procedure) [code = 445743254] [facility] Future Scheduled Test 1972 00:00:00 Sigmoidoscopy [code = Sigmoidoscopy] [facility] Future Scheduled Test 1972 00:00:00 Screening for malignant neoplasm of breast (procedure) [code = 263746083] [facility] Future Scheduled Test 1972 00:00:00 CT Colonography (combo) [code = CT Colonography (combo)] [facility] Future Scheduled Test 1972 00:00:00 Screening for malignant neoplasm of colon (procedure) [code = 628806242] [facility] Future Scheduled Test 1972 00:00:00 Screening for malignant neoplasm of colon (procedure) [code = 714630936] [facility] Future Scheduled Test 1972 00:00:00 Screening for malignant neoplasm of colon (procedure) [code = 501319784] [facility] Future Scheduled Test 1972 00:00:00 Screening for malignant neoplasm of colon (procedure) [code = 020896928] [facility] Future Scheduled Test 1972 00:00:00 Sigmoidoscopy [code = Sigmoidoscopy] [facility] Future Scheduled Test 1972 00:00:00 Screening for malignant neoplasm of breast (procedure) [code = 154023032] [facility] Future Scheduled Test 1972 00:00:00 CT Colonography (combo) [code = CT Colonography (combo)] [facility] Future Scheduled Test 1972 00:00:00 Screening for malignant neoplasm of colon (procedure) [code = 962540751] [facility] Future Scheduled Test 1972 00:00:00 Screening for malignant neoplasm of colon (procedure) [code = 438157969] [facility] Future Scheduled Test 1972 00:00:00 Screening for malignant neoplasm of colon (procedure) [code = 439663415] [facility] Future Scheduled Test 1972 00:00:00 Screening for malignant neoplasm of colon (procedure) [code = 056010396] [facility] Future Scheduled Test 1972 00:00:00 Sigmoidoscopy [code = Sigmoidoscopy] [facility] Future Scheduled Test 1972 00:00:00 Screening for malignant neoplasm of breast (procedure) [code = 941629849] [facility] Future Scheduled Test 1972 00:00:00 CT Colonography (combo) [code = CT Colonography (combo)] [facility] Future Scheduled Test 1972 00:00:00 Screening for malignant neoplasm of colon (procedure) [code = 013972965] [facility] Future Scheduled Test 1972 00:00:00 Screening for malignant neoplasm of colon (procedure) [code = 608146052] [facility] Future Scheduled Test 1972 00:00:00 Screening for malignant neoplasm of colon (procedure) [code = 840566481] [facility] Future Scheduled Test 1972 00:00:00 Screening for malignant neoplasm of colon (procedure) [code = 865215456] [facility] Future Scheduled Test 1972 00:00:00 Sigmoidoscopy [code = Sigmoidoscopy] [facility] Future Scheduled Test 1972 00:00:00 Screening for malignant neoplasm of breast (procedure) [code = 460270274] [facility] Future Scheduled Test 1972 00:00:00 CT Colonography (combo) [code = CT Colonography (combo)] [facility] Future Scheduled Test 1972 00:00:00 Screening for malignant neoplasm of colon (procedure) [code = 076294230] [facility] Future Scheduled Test 1972 00:00:00 Screening for malignant neoplasm of colon (procedure) [code = 652988362] [facility] Future Scheduled Test 1972 00:00:00 Screening for malignant neoplasm of colon (procedure) [code = 285342133] [facility] Future Scheduled Test 1972 00:00:00 Screening for malignant neoplasm of colon (procedure) [code = 927958850] [facility] Future Scheduled Test 1972 00:00:00 Sigmoidoscopy [code = Sigmoidoscopy] [facility] Future Scheduled Test 1972 00:00:00 Screening for malignant neoplasm of breast (procedure) [code = 471782702] [facility] Future Scheduled Test 1972 00:00:00 CT Colonography (combo) [code = CT Colonography (combo)] [facility] Future Scheduled Test 1972 00:00:00 Screening for malignant neoplasm of colon (procedure) [code = 786384239] [facility] Future Scheduled Test 1972 00:00:00 Screening for malignant neoplasm of colon (procedure) [code = 008073122] [facility] Future Scheduled Test 1972 00:00:00 Screening for malignant neoplasm of colon (procedure) [code = 584122574] [facility] Future Scheduled Test 1972 00:00:00 Screening for malignant neoplasm of colon (procedure) [code = 199421760] [facility] Future Scheduled Test 1972 00:00:00 Sigmoidoscopy [code = Sigmoidoscopy] [facility] Future Scheduled Test 1972 00:00:00 Screening for malignant neoplasm of breast (procedure) [code = 354708898] [facility] Future Scheduled Test 1972 00:00:00 CT Colonography (combo) [code = CT Colonography (combo)] [facility] Future Scheduled Test 1972 00:00:00 Screening for malignant neoplasm of colon (procedure) [code = 097919476] [facility] Future Scheduled Test 1972 00:00:00 Screening for malignant neoplasm of colon (procedure) [code = 341439262] [facility] Future Scheduled Test 1972 00:00:00 Screening for malignant neoplasm of colon (procedure) [code = 958076576] [facility] Future Scheduled Test 1972 00:00:00 Screening for malignant neoplasm of colon (procedure) [code = 537445297] [facility] Future Scheduled Test 1972 00:00:00 Sigmoidoscopy [code = Sigmoidoscopy] [facility] Future Scheduled Test 1972 00:00:00 Screening for malignant neoplasm of breast (procedure) [code = 726609089] [facility] Future Scheduled Test 1972 00:00:00 CT Colonography (combo) [code = CT Colonography (combo)] [facility] Future Scheduled Test 1972 00:00:00 Screening for malignant neoplasm of colon (procedure) [code = 772469513] [facility] Future Scheduled Test 1972 00:00:00 Screening for malignant neoplasm of colon (procedure) [code = 994627196] [facility] Future Scheduled Test 1972 00:00:00 Screening for malignant neoplasm of colon (procedure) [code = 191830472] [facility] Future Scheduled Test 1972 00:00:00 Screening for malignant neoplasm of colon (procedure) [code = 183059699] [facility] Future Scheduled Test 1972 00:00:00 Sigmoidoscopy [code = Sigmoidoscopy] [facility] Future Scheduled Test 1972 00:00:00 Screening for malignant neoplasm of breast (procedure) [code = 133028602] [facility] Future Scheduled Test 1972 00:00:00 CT Colonography (combo) [code = CT Colonography (combo)] [facility] Future Scheduled Test 1972 00:00:00 Screening for malignant neoplasm of colon (procedure) [code = 488437569] [facility] Future Scheduled Test 1972 00:00:00 Screening for malignant neoplasm of colon (procedure) [code = 402806658] [facility] Future Scheduled Test 1972 00:00:00 Screening for malignant neoplasm of colon (procedure) [code = 186151538] [facility] Future Scheduled Test 1972 00:00:00 Screening for malignant neoplasm of colon (procedure) [code = 881637533] [facility] Future Scheduled Test 1972 00:00:00 Sigmoidoscopy [code = Sigmoidoscopy] [facility] Future Scheduled Test 1972 00:00:00 Screening for malignant neoplasm of breast (procedure) [code = 596066763] [facility] Future Scheduled Test 1972 00:00:00 CT Colonography (combo) [code = CT Colonography (combo)] [facility] Future Scheduled Test 1972 00:00:00 Screening for malignant neoplasm of colon (procedure) [code = 916613292] [facility] Future Scheduled Test 1972 00:00:00 Screening for malignant neoplasm of colon (procedure) [code = 017298537] [facility] Future Scheduled Test 1972 00:00:00 Screening for malignant neoplasm of colon (procedure) [code = 233435511] [facility] Future Scheduled Test 1972 00:00:00 Screening for malignant neoplasm of colon (procedure) [code = 995334232] [facility] Future Scheduled Test 1972 00:00:00 Sigmoidoscopy [code = Sigmoidoscopy] [facility] Future Scheduled Test 1972 00:00:00 Screening for malignant neoplasm of breast (procedure) [code = 392214874] [facility] Future Scheduled Test 1972 00:00:00 CT Colonography (combo) [code = CT Colonography (combo)] [facility] Future Scheduled Test 1972 00:00:00 Screening for malignant neoplasm of colon (procedure) [code = 392442327] [facility] Future Scheduled Test 1972 00:00:00 Screening for malignant neoplasm of colon (procedure) [code = 834396238] [facility] Future Scheduled Test 1972 00:00:00 Screening for malignant neoplasm of colon (procedure) [code = 397903323] [facility] Future Scheduled Test 1972 00:00:00 Screening for malignant neoplasm of colon (procedure) [code = 618670304] [facility] Future Scheduled Test 1972 00:00:00 Sigmoidoscopy [code = Sigmoidoscopy] [facility] Future Scheduled Test 1972 00:00:00 Screening for malignant neoplasm of breast (procedure) [code = 566077249] [facility] Future Scheduled Test 1972 00:00:00 CT Colonography (combo) [code = CT Colonography (combo)] [facility] Future Scheduled Test 1972 00:00:00 Screening for malignant neoplasm of colon (procedure) [code = 898663840] [facility] Future Scheduled Test 1972 00:00:00 Screening for malignant neoplasm of colon (procedure) [code = 622472998] [facility] Future Scheduled Test 1972 00:00:00 Screening for malignant neoplasm of colon (procedure) [code = 534038339] [facility] Future Scheduled Test 1972 00:00:00 Screening for malignant neoplasm of colon (procedure) [code = 256742298] [facility] Future Scheduled Test 1972 00:00:00 Sigmoidoscopy [code = Sigmoidoscopy] [facility] Future Scheduled Test 1972 00:00:00 Screening for malignant neoplasm of breast (procedure) [code = 505770877] [facility] Future Scheduled Test 1972 00:00:00 CT Colonography (combo) [code = CT Colonography (combo)] [facility] Future Scheduled Test 1972 00:00:00 Screening for malignant neoplasm of colon (procedure) [code = 535055956] [facility] Future Scheduled Test 1972 00:00:00 Screening for malignant neoplasm of colon (procedure) [code = 957796371] [facility] Future Scheduled Test 1972 00:00:00 Screening for malignant neoplasm of colon (procedure) [code = 263003163] [facility] Future Scheduled Test 1972 00:00:00 Screening for malignant neoplasm of colon (procedure) [code = 724638259] [facility] Future Scheduled Test 1972 00:00:00 Sigmoidoscopy [code = Sigmoidoscopy] [facility] Future Scheduled Test 1972 00:00:00 Screening for malignant neoplasm of breast (procedure) [code = 823759066] [facility] Future Scheduled Test 1972 00:00:00 CT Colonography (combo) [code = CT Colonography (combo)] [facility] Future Scheduled Test 1972 00:00:00 Screening for malignant neoplasm of colon (procedure) [code = 212643446] [facility] Future Scheduled Test 1972 00:00:00 Screening for malignant neoplasm of colon (procedure) [code = 759623070] [facility] Future Scheduled Test 1972 00:00:00 Screening for malignant neoplasm of colon (procedure) [code = 579147245] [facility] Future Scheduled Test 1972 00:00:00 Screening for malignant neoplasm of colon (procedure) [code = 262649875] [facility] Future Scheduled Test 1972 00:00:00 Sigmoidoscopy [code = Sigmoidoscopy] [facility] Future Scheduled Test 1972 00:00:00 Screening for malignant neoplasm of breast (procedure) [code = 857523049] [facility] Future Scheduled Test 1972 00:00:00 CT Colonography (combo) [code = CT Colonography (combo)] [facility] Future Scheduled Test 1972 00:00:00 Screening for malignant neoplasm of colon (procedure) [code = 356489102] [facility] Future Scheduled Test 1972 00:00:00 Screening for malignant neoplasm of colon (procedure) [code = 396936779] [facility] Future Scheduled Test 1972 00:00:00 Screening for malignant neoplasm of colon (procedure) [code = 752486168] [facility] Future Scheduled Test 1972 00:00:00 Screening for malignant neoplasm of colon (procedure) [code = 407389666] [facility] Future Scheduled Test 1972 00:00:00 Sigmoidoscopy [code = Sigmoidoscopy] [facility] Future Scheduled Test 1972 00:00:00 Screening for malignant neoplasm of breast (procedure) [code = 533829147] [facility] Future Scheduled Test 1972 00:00:00 CT Colonography (combo) [code = CT Colonography (combo)] [facility] Future Scheduled Test 1972 00:00:00 Screening for malignant neoplasm of breast (procedure) [code = 297508056] [facility] Future Scheduled Test 1972 00:00:00 CT Colonography (combo) [code = CT Colonography (combo)] [facility] Future Scheduled Test 1972 00:00:00 Screening for malignant neoplasm of colon (procedure) [code = 800120209] [facility] Future Scheduled Test 1972 00:00:00 Screening for malignant neoplasm of colon (procedure) [code = 258679957] [facility] Future Scheduled Test 1972 00:00:00 Screening for malignant neoplasm of colon (procedure) [code = 554008274] [facility] Future Scheduled Test 1972 00:00:00 Screening for malignant neoplasm of colon (procedure) [code = 728902299] [facility] Future Scheduled Test 1972 00:00:00 Sigmoidoscopy [code = Sigmoidoscopy] [facility] Future Scheduled Test 1972 00:00:00 Screening for malignant neoplasm of colon (procedure) [code = 181858113] [facility] Future Scheduled Test 1972 00:00:00 Screening for malignant neoplasm of colon (procedure) [code = 510554565] [facility] Future Scheduled Test 1972 00:00:00 Screening for malignant neoplasm of colon (procedure) [code = 344536781] [facility] Future Scheduled Test 1972 00:00:00 Screening for malignant neoplasm of colon (procedure) [code = 909866545] [facility] Future Scheduled Test 1972 00:00:00 Sigmoidoscopy [code = Sigmoidoscopy] [facility] Future Scheduled Test 1972 00:00:00 Screening for malignant neoplasm of breast (procedure) [code = 264574652] [facility] Future Scheduled Test 1972 00:00:00 CT Colonography (combo) [code = CT Colonography (combo)] [facility] Future Scheduled Test 1972 00:00:00 Screening for malignant neoplasm of colon (procedure) [code = 688922023] [facility] Future Scheduled Test 1972 00:00:00 Screening for malignant neoplasm of colon (procedure) [code = 272790458] [facility] Future Scheduled Test 1972 00:00:00 Screening for malignant neoplasm of colon (procedure) [code = 970058645] [facility] Future Scheduled Test 1972 00:00:00 Screening for malignant neoplasm of colon (procedure) [code = 572113340] [facility] Future Scheduled Test 1972 00:00:00 Sigmoidoscopy [code = Sigmoidoscopy] [facility] Future Scheduled Test 1972 00:00:00 Screening for malignant neoplasm of breast (procedure) [code = 194363250] [facility] Future Scheduled Test 1972 00:00:00 CT Colonography (combo) [code = CT Colonography (combo)] [facility] Future Scheduled Test 1972 00:00:00 Screening for malignant neoplasm of colon (procedure) [code = 408909446] [facility] Future Scheduled Test 1972 00:00:00 Screening for malignant neoplasm of colon (procedure) [code = 811299491] [facility] Future Scheduled Test 1972 00:00:00 Screening for malignant neoplasm of colon (procedure) [code = 280424467] [facility] Future Scheduled Test 1972 00:00:00 Screening for malignant neoplasm of colon (procedure) [code = 487579336] [facility] Future Scheduled Test 1972 00:00:00 Sigmoidoscopy [code = Sigmoidoscopy] [facility] Future Scheduled Test 1972 00:00:00 Screening for malignant neoplasm of breast (procedure) [code = 302874324] [facility] Future Scheduled Test 1972 00:00:00 CT Colonography (combo) [code = CT Colonography (combo)] [facility] Future Scheduled Test 1972 00:00:00 Screening for malignant neoplasm of colon (procedure) [code = 853960605] [facility] Future Scheduled Test 1972 00:00:00 Screening for malignant neoplasm of colon (procedure) [code = 899534549] [facility] [facility] Future Scheduled Test 1972 00:00:00 Screening for malignant neoplasm of colon (procedure) [code = [id number]] [facility] Future Scheduled Test 1972 00:00:00 Screening for malignant neoplasm of colon (procedure) [code = 691372431] [facility] Future Scheduled Test 1972 00:00:00 Sigmoidoscopy [code = Sigmoidoscopy] [facility] Future Scheduled Test 1972 00:00:00 Screening for malignant neoplasm of breast (procedure) [code = 573514190] [facility] Future Scheduled Test 1972 00:00:00 CT Colonography (combo) [code = CT Colonography (combo)] [facility] Future Scheduled Test 1972 00:00:00 Screening for malignant neoplasm of colon (procedure) [code = 928731769] [facility] Future Scheduled Test 1972 00:00:00 Screening for malignant neoplasm of colon (procedure) [code = 911608423] [facility] Future Scheduled Test 1972 00:00:00 Screening for malignant neoplasm of colon (procedure) [code = 602485805] [facility] Future Scheduled Test 1972 00:00:00 Screening for malignant neoplasm of colon (procedure) [code = 366274244] [facility] Future Scheduled Test 1972 00:00:00 Sigmoidoscopy [code = Sigmoidoscopy] [facility] Future Scheduled Test 1972 00:00:00 Screening for malignant neoplasm of breast (procedure) [code = 536445636] [facility] Future Scheduled Test 1972 00:00:00 CT Colonography (combo) [code = CT Colonography (combo)] [facility] Future Scheduled Test 1972 00:00:00 Screening for malignant neoplasm of colon (procedure) [code = 971163230] [facility] Future Scheduled Test 1972 00:00:00 Screening for malignant neoplasm of colon (procedure) [code = 536640590] [facility] Future Scheduled Test 1972 00:00:00 Screening for malignant neoplasm of colon (procedure) [code = 541967778] [facility] Future Scheduled Test 1972 00:00:00 Screening for malignant neoplasm of colon (procedure) [code = 878595471] [facility] Future Scheduled Test 1972 00:00:00 Sigmoidoscopy [code = Sigmoidoscopy] [facility] Future Scheduled Test 1972 00:00:00 Screening for malignant neoplasm of breast (procedure) [code = 296703899] [facility] Future Scheduled Test 1972 00:00:00 CT Colonography (combo) [code = CT Colonography (combo)] [facility] Future Scheduled Test 1972 00:00:00 Screening for malignant neoplasm of colon (procedure) [code = 296401531] [facility] Future Scheduled Test 1972 00:00:00 Screening for malignant neoplasm of colon (procedure) [code = 463330511] [facility] Future Scheduled Test 1972 00:00:00 Screening for malignant neoplasm of colon (procedure) [code = 409962117] [facility] Future Scheduled Test 1972 00:00:00 Screening for malignant neoplasm of colon (procedure) [code = 265745455] [facility] Future Scheduled Test 1972 00:00:00 Sigmoidoscopy [code = Sigmoidoscopy] [facility] Future Scheduled Test 1972 00:00:00 Screening for malignant neoplasm of breast (procedure) [code = 678149180] [facility] Future Scheduled Test 1972 00:00:00 CT Colonography (combo) [code = CT Colonography (combo)] [facility] Future Scheduled Test 1972 00:00:00 Screening for malignant neoplasm of colon (procedure) [code = 262947484] [facility] Future Scheduled Test 1972 00:00:00 Screening for malignant neoplasm of colon (procedure) [code = 505800610] [facility] Future Scheduled Test 1972 00:00:00 Screening for malignant neoplasm of colon (procedure) [code = 543527785] [facility] Future Scheduled Test 1972 00:00:00 Screening for malignant neoplasm of colon (procedure) [code = 192120000] [facility] Future Scheduled Test 1972 00:00:00 Screening for malignant neoplasm of breast (procedure) [code = 493443866] [facility] Future Scheduled Test 1972 00:00:00 CT Colonography (combo) [code = CT Colonography (combo)] [facility] Future Scheduled Test 1972 00:00:00 Sigmoidoscopy [code = Sigmoidoscopy] [facility] Future Scheduled Test 1972 00:00:00 Screening for malignant neoplasm of colon (procedure) [code = 005770794] [facility] Future Scheduled Test 1972 00:00:00 Screening for malignant neoplasm of colon (procedure) [code = 528953634] [facility] Future Scheduled Test 1972 00:00:00 Screening for malignant neoplasm of colon (procedure) [code = 975964793] [facility] Future Scheduled Test 1972 00:00:00 Screening for malignant neoplasm of colon (procedure) [code = 018655109] [facility] Future Scheduled Test 1972 00:00:00 Sigmoidoscopy [code = Sigmoidoscopy] [facility] Future Scheduled Test 1972 00:00:00 Screening for malignant neoplasm of breast (procedure) [code = 257901069] [facility] Future Scheduled Test 1972 00:00:00 CT Colonography (combo) [code = CT Colonography (combo)] [facility] Future Scheduled Test 1972 00:00:00 Screening for malignant neoplasm of colon (procedure) [code = 168584736] [facility] Future Scheduled Test 1972 00:00:00 Screening for malignant neoplasm of colon (procedure) [code = 437309602] [facility] Future Scheduled Test 1972 00:00:00 Screening for malignant neoplasm of colon (procedure) [code = 174628099] [facility] Future Scheduled Test 1972 00:00:00 Screening for malignant neoplasm of colon (procedure) [code = 615327738] [facility] Future Scheduled Test 1972 00:00:00 Sigmoidoscopy [code = Sigmoidoscopy] [facility] Future Scheduled Test 1972 00:00:00 Screening for malignant neoplasm of breast (procedure) [code = 568712512] [facility] Future Scheduled Test 1972 00:00:00 CT Colonography (combo) [code = CT Colonography (combo)] [facility] Scheduled Test 1972 00:00:00 Screening for malignant neoplasm of colon (procedure) [code = 623804973] [facility] Future Scheduled Test 1972 00:00:00 Screening for malignant neoplasm of colon (procedure) [code = 251366499] [facility] Future Scheduled Test 1972 00:00:00 Screening for malignant neoplasm of colon (procedure) [code = 421722112] [facility] Future Scheduled Test 1972 00:00:00 Screening for malignant neoplasm of colon (procedure) [code = 867746157] [facility] Future Scheduled Test 1972 00:00:00 Sigmoidoscopy [code = Sigmoidoscopy] [facility] Future Scheduled Test 1972 00:00:00 Screening for malignant neoplasm of breast (procedure) [code = 866156054] [facility] Future Scheduled Test 1972 00:00:00 CT Colonography (combo) [code = CT Colonography (combo)] [facility] Future Scheduled Test 1972 00:00:00 Screening for malignant neoplasm of colon (procedure) [code = 099839084] [facility] Future Scheduled Test 1972 00:00:00 Screening for malignant neoplasm of colon (procedure) [code = 013124545] [facility] Future Scheduled Test 1972 00:00:00 Screening for malignant neoplasm of colon (procedure) [code = 709229597] [facility] Future Scheduled Test 1972 00:00:00 Screening for malignant neoplasm of colon (procedure) [code = 851341403] [facility] Future Scheduled Test 1972 00:00:00 Sigmoidoscopy [code = Sigmoidoscopy] [facility] Future Scheduled Test 1972 00:00:00 Screening for malignant neoplasm of breast (procedure) [code = 050918615] [facility] Future Scheduled Test 1972 00:00:00 CT Colonography (combo) [code = CT Colonography (combo)] [facility] Scheduled Test 1972 00:00:00 Screening for malignant neoplasm of colon (procedure) [code = 594290345] [facility] Future Scheduled Test 1972 00:00:00 Screening for malignant neoplasm of colon (procedure) [code = 270328481] [facility] Future Scheduled Test 1972 00:00:00 Screening for malignant neoplasm of colon (procedure) [code = 064019372] [facility] Scheduled Test 1972 00:00:00 Screening for malignant neoplasm of colon (procedure) [code = 585589266] [facility] Scheduled Test 1972 00:00:00 Sigmoidoscopy [code = Sigmoidoscopy] [facility] Future Scheduled Test 1972 00:00:00 Screening for malignant neoplasm of breast (procedure) [code = 168976941] [facility] Future Scheduled Test 1972 00:00:00 CT Colonography (combo) [code = CT Colonography (combo)] [facility] Future Scheduled Test 1972 00:00:00 Screening for malignant neoplasm of colon (procedure) [code = 522876087] [facility] Future Scheduled Test 1972 00:00:00 Screening for malignant neoplasm of colon (procedure) [code = 399918060] [facility] Future Scheduled Test 1972 00:00:00 Screening for malignant neoplasm of colon (procedure) [code = 941973652] [facility] Future Scheduled Test 1972 00:00:00 Screening for malignant neoplasm of colon (procedure) [code = 939338249] [facility] Future Scheduled Test 1972 00:00:00 Sigmoidoscopy [code = Sigmoidoscopy] [facility] Future Scheduled Test 1972 00:00:00 Screening for malignant neoplasm of breast (procedure) [code = 860913352] [facility] Future Scheduled Test 1972 00:00:00 CT Colonography (combo) [code = CT Colonography (combo)] [facility] Scheduled Test 1972 00:00:00 Screening for malignant neoplasm of colon (procedure) [code = 862081838] [facility] Future Scheduled Test 1972 00:00:00 Screening for malignant neoplasm of colon (procedure) [code = 519251433] [facility] Future Scheduled Test 1972 00:00:00 Screening for malignant neoplasm of breast (procedure) [code = 844292226] [facility] Future Scheduled Test 1972 00:00:00 Screening for malignant neoplasm of colon (procedure) [code = 646791548] [facility] Future Scheduled Test 1972 00:00:00 CT Colonography (combo) [code = CT Colonography (combo)] [facility] Scheduled Test 1972 00:00:00 Screening for malignant neoplasm of colon (procedure) [code = 043431286] [facility] Future Scheduled Test 1972 00:00:00 Screening for malignant neoplasm of colon (procedure) [code = 365959795] [facility] Future Scheduled Test 1972 00:00:00 Screening for malignant neoplasm of colon (procedure) [code = 776410384] [facility] Future Scheduled Test 1972 00:00:00 Screening for malignant neoplasm of colon (procedure) [code = 679544606] [facility] Future Scheduled Test 1972 00:00:00 Sigmoidoscopy [code = Sigmoidoscopy] [facility] Future Scheduled Test 1972 00:00:00 Screening for malignant neoplasm of colon (procedure) [code = 064266944] [facility] Future Scheduled Test 1972 00:00:00 Sigmoidoscopy [code = Sigmoidoscopy] [facility] Future Scheduled Test 1972 00:00:00 Screening for malignant neoplasm of breast (procedure) [code = 024717903] [facility] Future Scheduled Test 1972 00:00:00 CT Colonography (combo) [code = CT Colonography (combo)] [facility] Future Scheduled Test 1972 00:00:00 Screening for malignant neoplasm of colon (procedure) [code = 786423907] [facility] Future Scheduled Test 1972 00:00:00 Screening for malignant neoplasm of colon (procedure) [code = 310553365] [facility] Future Scheduled Test 1972 00:00:00 Screening for malignant neoplasm of colon (procedure) [code = 439808240] [facility] Future Scheduled Test 1972 00:00:00 Screening for malignant neoplasm of colon (procedure) [code = 755185859] [facility] Future Scheduled Test 1972 00:00:00 Sigmoidoscopy [code = Sigmoidoscopy] [facility] Future Scheduled Test 1972 00:00:00 Screening for malignant neoplasm of breast (procedure) [code = 742714477] [facility] Future Scheduled Test 1972 00:00:00 CT Colonography (combo) [code = CT Colonography (combo)] [facility] Scheduled Test 1972 00:00:00 Screening for malignant neoplasm of colon (procedure) [code = 708495763] [facility] Future Scheduled Test 1972 00:00:00 Screening for malignant neoplasm of colon (procedure) [code = 007654074] [facility] Future Scheduled Test 1972 00:00:00 Screening for malignant neoplasm of colon (procedure) [code = 721627896] [facility] Future Scheduled Test 1972 00:00:00 Screening for malignant neoplasm of colon (procedure) [code = 124809396] [facility] Future Scheduled Test 1972 00:00:00 Sigmoidoscopy [code = Sigmoidoscopy] [facility] Future Scheduled Test 1972 00:00:00 Screening for malignant neoplasm of breast (procedure) [code = 004738145] [facility] Future Scheduled Test 1972 00:00:00 CT Colonography (combo) [code = CT Colonography (combo)] [facility] Future Scheduled Test 1972 00:00:00 Screening for malignant neoplasm of colon (procedure) [code = 335976372] [facility] Future Scheduled Test 1972 00:00:00 Screening for malignant neoplasm of colon (procedure) [code = 721558654] [facility] Future Scheduled Test 1972 00:00:00 Screening for malignant neoplasm of colon (procedure) [code = 868096077] [facility] Future Scheduled Test 1972 00:00:00 Screening for malignant neoplasm of colon (procedure) [code = 291039144] [facility] Future Scheduled Test 1972 00:00:00 Sigmoidoscopy [code = Sigmoidoscopy] [facility] Future Scheduled Test 1972 00:00:00 Screening for malignant neoplasm of breast (procedure) [code = 347327043] [facility] Future Scheduled Test 1972 00:00:00 CT Colonography (combo) [code = CT Colonography (combo)] [facility] Future Scheduled Test 1972 00:00:00 Screening for malignant neoplasm of colon (procedure) [code = 688736897] [facility] Future Scheduled Test 1972 00:00:00 Screening for malignant neoplasm of colon (procedure) [code = 814224296] [facility] Future Scheduled Test 1972 00:00:00 Screening for malignant neoplasm of colon (procedure) [code = 375605678] [facility] Future Scheduled Test 1972 00:00:00 Screening for malignant neoplasm of colon (procedure) [code = 986860739] [facility] Future Scheduled Test 1972 00:00:00 Sigmoidoscopy [code = Sigmoidoscopy] [facility] Future Scheduled Test 1972 00:00:00 Screening for malignant neoplasm of breast (procedure) [code = 213765436] [facility] Future Scheduled Test 1972 00:00:00 CT Colonography (combo) [code = CT Colonography (combo)] [facility] Future Scheduled Test 1972 00:00:00 Screening for malignant neoplasm of colon (procedure) [code = 944607299] [facility] Future Scheduled Test 1972 00:00:00 Screening for malignant neoplasm of colon (procedure) [code = 500666027] [facility] Future Scheduled Test 1972 00:00:00 Screening for malignant neoplasm of colon (procedure) [code = 250005967] [facility] Future Scheduled Test 1972 00:00:00 Screening for malignant neoplasm of colon (procedure) [code = 777150477] [facility] Future Scheduled Test 1972 00:00:00 Sigmoidoscopy [code = Sigmoidoscopy] [facility] Future Scheduled Test 1972 00:00:00 Screening for malignant neoplasm of breast (procedure) [code = 374838622] [facility] Future Scheduled Test 1972 00:00:00 CT Colonography (combo) [code = CT Colonography (combo)] [facility] Future Scheduled Test 1972 00:00:00 Screening for malignant neoplasm of colon (procedure) [code = 880850047] [facility] Future Scheduled Test 1972 00:00:00 Screening for malignant neoplasm of colon (procedure) [code = 977683699] [facility] Future Scheduled Test 1972 00:00:00 Screening for malignant neoplasm of colon (procedure) [code = 489731149] [facility] Future Scheduled Test 1972 00:00:00 Screening for malignant neoplasm of colon (procedure) [code = 206791630] [facility] Future Scheduled Test 1972 00:00:00 Sigmoidoscopy [code = Sigmoidoscopy] [facility] Future Scheduled Test 1972 00:00:00 Screening for malignant neoplasm of breast (procedure) [code = 237434938] [facility] Future Scheduled Test 1972 00:00:00 CT Colonography (combo) [code = CT Colonography (combo)] [facility] Future Scheduled Test 1972 00:00:00 Screening for malignant neoplasm of colon (procedure) [code = 037233479] [facility] Future Scheduled Test 1972 00:00:00 Screening for malignant neoplasm of colon (procedure) [code = 948019574] [facility] Future Scheduled Test 1972 00:00:00 Screening for malignant neoplasm of colon (procedure) [code = 904982605] [facility] Future Scheduled Test 1972 00:00:00 Screening for malignant neoplasm of colon (procedure) [code = 809268891] [facility] Future Scheduled Test 1972 00:00:00 Sigmoidoscopy [code = Sigmoidoscopy] [facility] Future Scheduled Test 1972 00:00:00 Screening for malignant neoplasm of breast (procedure) [code = 192493070] [facility] Future Scheduled Test 1972 00:00:00 CT Colonography (combo) [code = CT Colonography (combo)] [facility] Future Scheduled Test 1972 00:00:00 Screening for malignant neoplasm of colon (procedure) [code = 877032044] [facility] Future Scheduled Test 1972 00:00:00 Screening for malignant neoplasm of colon (procedure) [code = 839650648] [facility] Future Scheduled Test 1972 00:00:00 Screening for malignant neoplasm of colon (procedure) [code = 701809479] [facility] Future Scheduled Test 1972 00:00:00 Screening for malignant neoplasm of colon (procedure) [code = 421243365] [facility] Future Scheduled Test 1972 00:00:00 Sigmoidoscopy [code = Sigmoidoscopy] [facility] Future Scheduled Test 1972 00:00:00 Screening for malignant neoplasm of breast (procedure) [code = 098962647] [facility] Future Scheduled Test 1972 00:00:00 CT Colonography (combo) [code = CT Colonography (combo)] [facility] Future Scheduled Test 1972 00:00:00 Screening for malignant neoplasm of colon (procedure) [code = 918382609] [facility] Future Scheduled Test 1972 00:00:00 Screening for malignant neoplasm of colon (procedure) [code = 926845992] [facility] Future Scheduled Test 1972 00:00:00 Screening for malignant neoplasm of colon (procedure) [code = 846249315] [facility] Future Scheduled Test 1972 00:00:00 Screening for malignant neoplasm of colon (procedure) [code = 628240196] [facility] Future Scheduled Test 1972 00:00:00 Sigmoidoscopy [code = Sigmoidoscopy] [facility] Future Scheduled Test 1972 00:00:00 Screening for malignant neoplasm of breast (procedure) [code = 088612700] [facility] Future Scheduled Test 1972 00:00:00 CT Colonography (combo) [code = CT Colonography (combo)] [facility] Future Scheduled Test 1972 00:00:00 Screening for malignant neoplasm of colon (procedure) [code = 391225873] [facility] Future Scheduled Test 1972 00:00:00 Screening for malignant neoplasm of colon (procedure) [code = 486282887] [facility] Future Scheduled Test 1972 00:00:00 Screening for malignant neoplasm of colon (procedure) [code = 596570656] [facility] Future Scheduled Test 1972 00:00:00 Screening for malignant neoplasm of colon (procedure) [code = 094327602] [facility] Future Scheduled Test 1972 00:00:00 Sigmoidoscopy [code = Sigmoidoscopy] [facility] Future Scheduled Test 1972 00:00:00 Screening for malignant neoplasm of breast (procedure) [code = 814286478] [facility] Future Scheduled Test 1972 00:00:00 CT Colonography (combo) [code = CT Colonography (combo)] [facility] Future Scheduled Test 1972 00:00:00 Screening for malignant neoplasm of colon (procedure) [code = 062771383] [facility] Future Scheduled Test 1972 00:00:00 Screening for malignant neoplasm of breast (procedure) [code = 499480658] [facility] Future Scheduled Test 1972 00:00:00 CT Colonography (combo) [code = CT Colonography (combo)] [facility] Future Scheduled Test 1972 00:00:00 Screening for malignant neoplasm of colon (procedure) [code = 162150078] [facility] Future Scheduled Test 1972 00:00:00 Screening for malignant neoplasm of colon (procedure) [code = 938441989] [facility] Future Scheduled Test 1972 00:00:00 Screening for malignant neoplasm of colon (procedure) [code = 207682209] [facility] Future Scheduled Test 1972 00:00:00 Screening for malignant neoplasm of colon (procedure) [code = 456342931] [facility] Future Scheduled Test 1972 00:00:00 Sigmoidoscopy [code = Sigmoidoscopy] [facility] Future Scheduled Test 1972 00:00:00 Screening for malignant neoplasm of colon (procedure) [code = 260608457] [facility] Future Scheduled Test 1972 00:00:00 Screening for malignant neoplasm of colon (procedure) [code = 841867850] [facility] Future Scheduled Test 1972 00:00:00 Screening for malignant neoplasm of colon (procedure) [code = 288749706] [facility] Future Scheduled Test 1972 00:00:00 Sigmoidoscopy [code = Sigmoidoscopy] [facility] Future Scheduled Test 1972 00:00:00 Screening for malignant neoplasm of breast (procedure) [code = 774305145] [facility] Future Scheduled Test 1972 00:00:00 CT Colonography (combo) [code = CT Colonography (combo)] [facility] Scheduled Test 1972 00:00:00 Screening for malignant neoplasm of colon (procedure) [code = 276894102] [facility] Future Scheduled Test 1972 00:00:00 Screening for malignant neoplasm of colon (procedure) [code = 260351071] [facility] Future Scheduled Test 1972 00:00:00 Screening for malignant neoplasm of colon (procedure) [code = 994985612] [facility] Future Scheduled Test 1972 00:00:00 Screening for malignant neoplasm of colon (procedure) [code = 573851250] [facility] Future Scheduled Test 1972 00:00:00 Sigmoidoscopy [code = Sigmoidoscopy] [facility] Scheduled Test 1972 00:00:00 Screening for malignant neoplasm of breast (procedure) [code = 649868789] [facility] Future Scheduled Test 1972 00:00:00 CT Colonography (combo) [code = CT Colonography (combo)] [facility] Scheduled Test 1972 00:00:00 Screening for malignant neoplasm of colon (procedure) [code = 488487042] [facility] Scheduled Test 1972 00:00:00 Screening for malignant neoplasm of colon (procedure) [code = 243757194] [facility] Future Scheduled Test 1972 00:00:00 Screening for malignant neoplasm of colon (procedure) [code = 571829551] [facility] Scheduled Test 1972 00:00:00 Screening for malignant neoplasm of colon (procedure) [code = 693292564] [facility] Scheduled Test 1972 00:00:00 Sigmoidoscopy [code = Sigmoidoscopy] [facility] [facility] 1972 00:00:00 Screening for malignant neoplasm of breast (procedure) [code = 924430670] [facility] Future Scheduled Test 1972 00:00:00 CT Colonography (combo) [code = CT Colonography (combo)] [facility] Future Scheduled Test 1972 00:00:00 Screening for malignant neoplasm of colon (procedure) [code = 374968562] [facility] Future Scheduled Test 1972 00:00:00 Screening for malignant neoplasm of colon (procedure) [code = 848006322] [facility] Future Scheduled Test 1972 00:00:00 Screening for malignant neoplasm of colon (procedure) [code = 880969283] [facility] Future Scheduled Test 1972 00:00:00 Screening for malignant neoplasm of colon (procedure) [code = 493560762] [facility] Future Scheduled Test 1972 00:00:00 Sigmoidoscopy [code = Sigmoidoscopy] [facility] Future Scheduled Test 1972 00:00:00 Screening for malignant neoplasm of breast (procedure) [code = 849544584] [facility] Future Scheduled Test 1972 00:00:00 CT Colonography (combo) [code = CT Colonography (combo)] [facility] Future Scheduled Test 1972 00:00:00 Screening for malignant neoplasm of colon (procedure) [code = 790673885] [facility] Future Scheduled Test 1972 00:00:00 Screening for malignant neoplasm of colon (procedure) [code = 151471803] [facility] Future Scheduled Test 1972 00:00:00 Screening for malignant neoplasm of colon (procedure) [code = 619630143] [facility] Future Scheduled Test 1972 00:00:00 Screening for malignant neoplasm of colon (procedure) [code = 700352679] [facility] Future Scheduled Test 1972 00:00:00 Sigmoidoscopy [code = Sigmoidoscopy] [facility] Future Scheduled Test 1972 00:00:00 Screening for malignant neoplasm of breast (procedure) [code = 854861409] [facility] Future Scheduled Test 1972 00:00:00 CT Colonography (combo) [code = CT Colonography (combo)] [facility] Future Scheduled Test 1972 00:00:00 Screening for malignant neoplasm of colon (procedure) [code = 968736332] [facility] Future Scheduled Test 1972 00:00:00 Screening for malignant neoplasm of colon (procedure) [code = 439363079] [facility] Future Scheduled Test 1972 00:00:00 Screening for malignant neoplasm of colon (procedure) [code = 593043235] [facility] Future Scheduled Test 1972 00:00:00 Screening for malignant neoplasm of colon (procedure) [code = 986740333] [facility] Future Scheduled Test 1972 00:00:00 Screening for malignant neoplasm of breast (procedure) [code = 482014205] [facility] Future Scheduled Test 1972 00:00:00 Sigmoidoscopy [code = Sigmoidoscopy] [facility] Future Scheduled Test 1972 00:00:00 CT Colonography (combo) [code = CT Colonography (combo)] [facility] Future Scheduled Test 1972 00:00:00 Screening for malignant neoplasm of colon (procedure) [code = 145029612] [facility] Future Scheduled Test 1972 00:00:00 Screening for malignant neoplasm of breast (procedure) [code = 134268973] [facility] Future Scheduled Test 1972 00:00:00 CT Colonography (combo) [code = CT Colonography (combo)] [facility] Future Scheduled Test 1972 00:00:00 Screening for malignant neoplasm of colon (procedure) [code = 953480421] [facility] Future Scheduled Test 1972 00:00:00 Screening for malignant neoplasm of colon (procedure) [code = 852398157] [facility] Future Scheduled Test 1972 00:00:00 Screening for malignant neoplasm of colon (procedure) [code = 617071741] [facility] Future Scheduled Test 1972 00:00:00 Screening for malignant neoplasm of colon (procedure) [code = 117230598] [facility] Future Scheduled Test 1972 00:00:00 Screening for malignant neoplasm of colon (procedure) [code = 730885250] [facility] Future Scheduled Test 1972 00:00:00 Sigmoidoscopy [code = Sigmoidoscopy] [facility] Future Scheduled Test 1972 00:00:00 Screening for malignant neoplasm of colon (procedure) [code = 777345387] [facility] Future Scheduled Test 1972 00:00:00 Screening for malignant neoplasm of colon (procedure) [code = 727523843] [facility] Future Scheduled Test 1972 00:00:00 Screening for malignant neoplasm of breast (procedure) [code = 768549364] [facility] Future Scheduled Test 1972 00:00:00 CT Colonography (combo) [code = CT Colonography (combo)] [facility] Future Scheduled Test 1972 00:00:00 Screening for malignant neoplasm of colon (procedure) [code = 916499050] [facility] Future Scheduled Test 1972 00:00:00 Screening for malignant neoplasm of colon (procedure) [code = 381104341] [facility] Future Scheduled Test 1972 00:00:00 Sigmoidoscopy [code = Sigmoidoscopy] [facility] Future Scheduled Test 1972 00:00:00 Screening for malignant neoplasm of colon (procedure) [code = 037149920] [facility] Future Scheduled Test 1972 00:00:00 Screening for malignant neoplasm of colon (procedure) [code = 108759688] [facility] Future Scheduled Test 1972 00:00:00 Sigmoidoscopy [code = Sigmoidoscopy] [facility] Future Scheduled Test 1972 00:00:00 Screening for malignant neoplasm of breast (procedure) [code = 999355317] [facility] Future Scheduled Test 1972 00:00:00 CT Colonography (combo) [code = CT Colonography (combo)] [facility] Future Scheduled Test 1972 00:00:00 Screening for malignant neoplasm of colon (procedure) [code = 827240799] [facility] Future Scheduled Test 1972 00:00:00 Screening for malignant neoplasm of colon (procedure) [code = 467715088] [facility] Future Scheduled Test 1972 00:00:00 Screening for malignant neoplasm of colon (procedure) [code = 916313262] [facility] Future Scheduled Test 1972 00:00:00 Screening for malignant neoplasm of colon (procedure) [code = 732699247] [facility] Future Scheduled Test 1972 00:00:00 Sigmoidoscopy [code = Sigmoidoscopy] [facility] Future Scheduled Test 1972 00:00:00 Screening for malignant neoplasm of breast (procedure) [code = 371774630] [facility] Future Scheduled Test 1972 00:00:00 CT Colonography (combo) [code = CT Colonography (combo)] [facility] Future Scheduled Test 1972 00:00:00 Screening for malignant neoplasm of colon (procedure) [code = 412499959] [facility] Future Scheduled Test 1972 00:00:00 Screening for malignant neoplasm of colon (procedure) [code = 845421511] [facility] Future Scheduled Test 1972 00:00:00 Screening for malignant neoplasm of colon (procedure) [code = 481753697] [facility] Future Scheduled Test 1972 00:00:00 Screening for malignant neoplasm of colon (procedure) [code = 478785564] [facility] Future Scheduled Test 1972 00:00:00 Sigmoidoscopy [code = Sigmoidoscopy] [facility] Future Scheduled Test 1972 00:00:00 Screening for malignant neoplasm of breast (procedure) [code = 106865755] [facility] Future Scheduled Test 1972 00:00:00 CT Colonography (combo) [code = CT Colonography (combo)] [facility] Future Scheduled Test 1972 00:00:00 Screening for malignant neoplasm of colon (procedure) [code = 689667656] [facility] Future Scheduled Test 1972 00:00:00 Screening for malignant neoplasm of colon (procedure) [code = 842147926] [facility] Future Scheduled Test 1972 00:00:00 Screening for malignant neoplasm of colon (procedure) [code = 283506318] [facility] Future Scheduled Test 1972 00:00:00 Screening for malignant neoplasm of colon (procedure) [code = 254706081] [facility] Future Scheduled Test 1972 00:00:00 Sigmoidoscopy [code = Sigmoidoscopy] [facility] Future Scheduled Test 1972 00:00:00 Screening for malignant neoplasm of breast (procedure) [code = 763913342] [facility] Future Scheduled Test 1972 00:00:00 CT Colonography (combo) [code = CT Colonography (combo)] [facility] Future Scheduled Test 1972 00:00:00 Screening for malignant neoplasm of colon (procedure) [code = 010963635] [facility] Future Scheduled Test 1972 00:00:00 Screening for malignant neoplasm of colon (procedure) [code = 551723852] [facility] Future Scheduled Test 1972 00:00:00 Screening for malignant neoplasm of colon (procedure) [code = 828294245] [facility] Future Scheduled Test 1972 00:00:00 Screening for malignant neoplasm of colon (procedure) [code = 045634295] [facility] Future Scheduled Test 1972 00:00:00 Sigmoidoscopy [code = Sigmoidoscopy] [facility] Future Scheduled Test 1972 00:00:00 Screening for malignant neoplasm of breast (procedure) [code = 116871201] [facility] Future Scheduled Test 1972 00:00:00 CT Colonography (combo) [code = CT Colonography (combo)] [facility] Future Scheduled Test 1972 00:00:00 Screening for malignant neoplasm of colon (procedure) [code = 883000662] [facility] Future Scheduled Test 1972 00:00:00 Screening for malignant neoplasm of colon (procedure) [code = 701699516] [facility] Future Scheduled Test 1972 00:00:00 Screening for malignant neoplasm of colon (procedure) [code = 423731506] [facility] Future Scheduled Test 1972 00:00:00 Screening for malignant neoplasm of colon (procedure) [code = 028518242] [facility] Future Scheduled Test 1972 00:00:00 Sigmoidoscopy [code = Sigmoidoscopy] [facility] Future Scheduled Test 1972 00:00:00 Screening for malignant neoplasm of breast (procedure) [code = 692792487] [facility] Future Scheduled Test 1972 00:00:00 CT Colonography (combo) [code = CT Colonography (combo)] [facility] Future Scheduled Test 1972 00:00:00 Screening for malignant neoplasm of colon (procedure) [code = 771766179] [facility] Future Scheduled Test 1972 00:00:00 Screening for malignant neoplasm of colon (procedure) [code = 642811899] [facility] Future Scheduled Test 1972 00:00:00 Screening for malignant neoplasm of colon (procedure) [code = 141131189] [facility] Future Scheduled Test 1972 00:00:00 Screening for malignant neoplasm of colon (procedure) [code = 662214209] [facility] Future Scheduled Test 1972 00:00:00 Sigmoidoscopy [code = Sigmoidoscopy] [facility] Future Scheduled Test 1972 00:00:00 Screening for malignant neoplasm of breast (procedure) [code = 463067361] [facility] Future Scheduled Test 1972 00:00:00 CT Colonography (combo) [code = CT Colonography (combo)] [facility] Future Scheduled Test 1972 00:00:00 Screening for malignant neoplasm of colon (procedure) [code = 291455749] [facility] Future Scheduled Test 1972 00:00:00 Screening for malignant neoplasm of colon (procedure) [code = 631513996] [facility] Future Scheduled Test 1972 00:00:00 Screening for malignant neoplasm of colon (procedure) [code = 382461409] [facility] Future Scheduled Test 1972 00:00:00 Screening for malignant neoplasm of colon (procedure) [code = 586377908] [facility] Future Scheduled Test 1972 00:00:00 Sigmoidoscopy [code = Sigmoidoscopy] [facility] Future Scheduled Test 1972 00:00:00 Screening for malignant neoplasm of breast (procedure) [code = 744168529] [facility] Future Scheduled Test 1972 00:00:00 CT Colonography (combo) [code = CT Colonography (combo)] [facility] Future Scheduled Test 1972 00:00:00 Screening for malignant neoplasm of colon (procedure) [code = 084610712] [facility] Future Scheduled Test 1972 00:00:00 Screening for malignant neoplasm of colon (procedure) [code = 830133530] [facility] Future Scheduled Test 1972 00:00:00 Screening for malignant neoplasm of colon (procedure) [code = 126793237] [facility] Future Scheduled Test 1972 00:00:00 Screening for malignant neoplasm of colon (procedure) [code = 146615633] [facility] Future Scheduled Test 1972 00:00:00 Sigmoidoscopy [code = Sigmoidoscopy] [facility] Future Scheduled Test 1972 00:00:00 Screening for malignant neoplasm of breast (procedure) [code = 286765550] [facility] Future Scheduled Test 1972 00:00:00 CT Colonography (combo) [code = CT Colonography (combo)] [facility] Future Scheduled Test 1972 00:00:00 Screening for malignant neoplasm of colon (procedure) [code = 532312849] [facility] Future Scheduled Test 1972 00:00:00 Screening for malignant neoplasm of colon (procedure) [code = 673955704] [facility] Future Scheduled Test 1972 00:00:00 Screening for malignant neoplasm of colon (procedure) [code = 887380803] [facility] Future Scheduled Test 1972 00:00:00 Screening for malignant neoplasm of colon (procedure) [code = 774288191] [facility] Future Scheduled Test 1972 00:00:00 Sigmoidoscopy [code = Sigmoidoscopy] [facility] Future Scheduled Test 1972 00:00:00 Screening for malignant neoplasm of breast (procedure) [code = 321393925] [facility] Future Scheduled Test 1972 00:00:00 CT Colonography (combo) [code = CT Colonography (combo)] [facility] Future Scheduled Test 1972 00:00:00 Screening for malignant neoplasm of colon (procedure) [code = 142925510] [facility] Future Scheduled Test 1972 00:00:00 Screening for malignant neoplasm of colon (procedure) [code = 171210323] [facility] Future Scheduled Test 1972 00:00:00 Screening for malignant neoplasm of colon (procedure) [code = 406415802] [facility] Future Scheduled Test 1972 00:00:00 Screening for malignant neoplasm of colon (procedure) [code = 425941463] [facility] Future Scheduled Test 1972 00:00:00 Sigmoidoscopy [code = Sigmoidoscopy] [facility] Future Scheduled Test 1972 00:00:00 Screening for malignant neoplasm of breast (procedure) [code = 625833689] [facility] Future Scheduled Test 1972 00:00:00 CT Colonography (combo) [code = CT Colonography (combo)] [facility] Future Scheduled Test 1972 00:00:00 Screening for malignant neoplasm of colon (procedure) [code = 541132179] [facility] Future Scheduled Test 1972 00:00:00 Screening for malignant neoplasm of colon (procedure) [code = 913568019] [facility] Future Scheduled Test 1972 00:00:00 Screening for malignant neoplasm of colon (procedure) [code = 446131228] [facility] Future Scheduled Test 1972 00:00:00 Screening for malignant neoplasm of colon (procedure) [code = 858631265] [facility] Future Scheduled Test 1972 00:00:00 Sigmoidoscopy [code = Sigmoidoscopy] [facility] Future Scheduled Test 1972 00:00:00 Screening for malignant neoplasm of breast (procedure) [code = 901466717] [facility] Future Scheduled Test 1972 00:00:00 CT Colonography (combo) [code = CT Colonography (combo)] [facility] Future Scheduled Test 1972 00:00:00 Screening for malignant neoplasm of colon (procedure) [code = 053841158] [facility] Future Scheduled Test 1972 00:00:00 Screening for malignant neoplasm of colon (procedure) [code = 214308261] [facility] Future Scheduled Test 1972 00:00:00 Screening for malignant neoplasm of colon (procedure) [code = 654895908] [facility] Future Scheduled Test 1972 00:00:00 Screening for malignant neoplasm of colon (procedure) [code = 640186728] [facility] Future Scheduled Test 1972 00:00:00 Sigmoidoscopy [code = Sigmoidoscopy] [facility] Future Scheduled Test 1972 00:00:00 Screening for malignant neoplasm of breast (procedure) [code = 761569811] [facility] Future Scheduled Test 1972 00:00:00 CT Colonography (combo) [code = CT Colonography (combo)] [facility] Future Scheduled Test 1972 00:00:00 Screening for malignant neoplasm of colon (procedure) [code = 080706253] [facility] Future Scheduled Test 1972 00:00:00 Screening for malignant neoplasm of colon (procedure) [code = 250806494] [facility] Future Scheduled Test 1972 00:00:00 Screening for malignant neoplasm of colon (procedure) [code = 259900623] [facility] Future Scheduled Test 1972 00:00:00 Screening for malignant neoplasm of colon (procedure) [code = 146061432] [facility] Future Scheduled Test 1972 00:00:00 Sigmoidoscopy [code = Sigmoidoscopy] [facility] Future Scheduled Test 1972 00:00:00 Screening for malignant neoplasm of breast (procedure) [code = 032350778] [facility] Future Scheduled Test 1972 00:00:00 CT Colonography (combo) [code = CT Colonography (combo)] [facility] Future Scheduled Test 1972 00:00:00 Screening for malignant neoplasm of colon (procedure) [code = 833607362] [facility] Future Scheduled Test 1972 00:00:00 Screening for malignant neoplasm of colon (procedure) [code = 391439961] [facility] Future Scheduled Test 1972 00:00:00 Screening for malignant neoplasm of colon (procedure) [code = 154296118] [facility] Future Scheduled Test 1972 00:00:00 Screening for malignant neoplasm of colon (procedure) [code = 630933890] [facility] Future Scheduled Test 1972 00:00:00 Sigmoidoscopy [code = Sigmoidoscopy] [facility] Future Scheduled Test 1972 00:00:00 Screening for malignant neoplasm of breast (procedure) [code = 291726872] [facility] Future Scheduled Test 1972 00:00:00 CT Colonography (combo) [code = CT Colonography (combo)] [facility] Future Scheduled Test 1972 00:00:00 Screening for malignant neoplasm of colon (procedure) [code = 052969836] [facility] Future Scheduled Test 1972 00:00:00 Screening for malignant neoplasm of colon (procedure) [code = 064957267] [facility] Future Scheduled Test 1972 00:00:00 Screening for malignant neoplasm of colon (procedure) [code = 080810200] [facility] Future Scheduled Test 1972 00:00:00 Screening for malignant neoplasm of colon (procedure) [code = 423041118] [facility] Future Scheduled Test 1972 00:00:00 Sigmoidoscopy [code = Sigmoidoscopy] [facility] Future Scheduled Test 1972 00:00:00 Screening for malignant neoplasm of breast (procedure) [code = 453309555] [facility] Future Scheduled Test 1972 00:00:00 CT Colonography (combo) [code = CT Colonography (combo)] [facility] Future Scheduled Test 1972 00:00:00 Screening for malignant neoplasm of colon (procedure) [code = 842031627] [facility] Future Scheduled Test 1972 00:00:00 Screening for malignant neoplasm of colon (procedure) [code = 296546157] [facility] Future Scheduled Test 1972 00:00:00 Screening for malignant neoplasm of colon (procedure) [code = 421883456] [facility] Future Scheduled Test 1972 00:00:00 Screening for malignant neoplasm of colon (procedure) [code = 690013614] [facility] Future Scheduled Test 1972 00:00:00 Sigmoidoscopy [code = Sigmoidoscopy] [facility] Goal Plan of Care Not e [code = 75945-9] Goal Plan of Care Not e [code = 02534-1] Goal Plan of Care Not e [code = 17886-1] Goal Plan of Care Not e [code = 44626-7] Goal Plan of Care Not e [code = 37471-0] Goal Plan of Care Not e [code = 34917-9] Goal Plan of Care Not e [code = 65543-5] Goal Plan of Care Not e [code = 60422-5] Goal Plan of Care Not e [code = 81334-0] Goal Plan of Care Not e [code = 08622-9] Goal Plan of Care Not e [code = 87741-5] Goal Plan of Care Not e [code = 89025-5] Goal Plan of Care Not e [code = 41187-5] Goal Plan of Care Not e [code = 12298-0] Goal Plan of Care Not e [code = 36235-3] Goal Plan of Care Not e [code = 26010-7] Goal Plan of Care Not e [code = 26861-7] Goal Plan of Care Not e [code = 12913-9] Goal Plan of Care Not e [code = 60700-3] Goal Plan of Care Not e [code = 95975-3] Goal Plan of Care Not e [code = 21590-7] Goal Plan of Care Not e [code = 88244-5] Goal Plan of Care Not e [code = 71656-2] Goal Plan of Care Not e [code = 00116-5] Goal Plan of Care Not e [code = 21611-3] Goal Plan of Care Not e [code = 60125-0] Goal Plan of Care Not e [code = 16209-3] Goal Plan of Care Not e [code = 67730-3] Goal Plan of Care Not e [code = 36205-4] Goal Plan of Care Not e [code = 11211-3] Goal Plan of Care Not e [code = 35770-6] Goal Plan of Care Not e [code = 57393-8] Goal Plan of Care Not e [code = 86728-2] Goal Plan of Care Not e [code = 84589-4] Goal Plan of Care Not e [code = 05264-3] Encounters Start Date/Time End Date/Time Encounter Type Admission Type Attending [facility] Care Facility Care Department Encounter ID Source 2024-10-08 17:21:07 Emergency [facility] [id number] [facility] 2023-09-07 10:11:[address] [facility] [id number] [facility] 2023-09-05 10:08:27 Inpatient [address]E OBREGON [facility] [facility] [id number] [facility] 2023-09-05 10:05:[address] [facility] [id number] [facility] 2023-09-04 04:51:30 Inpatient [facility] [id number] [facility] 2023-09-04 04:14:55 Inpatient [facility] [id number] [facility] 2023-09-04 03:08:45 Inpatient [facility] [id number] [facility] 2023-09-04 02:36:28 Inpatient [facility]AJ [facility] [id number] [facility] 2023-06-16 09:32:36 Inpatient AYDEE DICKENS [facility] [id number] [facility] 2023-06-16 09:32:09 Inpatient AYDEE DICKENS [facility] [id number] [facility] 2023-06-16 09:31:53 [facility] [id number] [facility] 2023-06-14 07:46:02 [facility] [id number] [facility] 2023-06-14 07:39:22 Inpatient AYDEE DICKENS [facility] [id number] [facility] 2023-06-14 06:38:38 [facility] [id number] [facility] 2023-06-13 13:44:18 [facility] [id number] [facility] 2023-06-13 11:45:24 [facility] [id number] [facility] 2023-05-08 11:21:00 Outpatient EL ADAM GARCIA [facility] [id number] [facility] 2023-04-01 14:26:29 Inpatient ER DEVORA THOMAS [facility] [id number] [facility] 2023-03-31 09:24:52 Inpatient ER MARIAH ALDRIDGE [facility] [id number] [facility] 2021-05-20 18:48:04 Emergency [facility] [id number] [facility] 2021-05-20 12:43:40 Emergency [facility] [id number] [facility] [facility] 2025-05-05 14:30:00 2025-05-05 14:30:00 Outpatient DEMETRIUS TOBAR CYNTHIA MARIE [id number] [facility] 2025-05-03 14:30:00 2025-05-03 14:30:00 Outpatient GARRICK SANCHEZ CYNTHIA MARIE [id number] [facility] 2025-04-27 15:00:00 2025-04-27 15:00:00 Outpatient ROVERTO MCCALL CYNTHIA MARIE [id number] [facility] 2025-04-12 13:30:00 2025-04-12 13:30:00 Outpatient MERCEDES RYDER CYNTHIA MARIE [id number] [facility] 2025-04-09 15:56:00 2025-04-09 19:40:00 Emergency X Rosalba Lainez [facility] 1.2.840.114 350.1.13.10 4.2.7.2.686 [id number] [facility] 2025-04-08 14:32:00 2025-04-08 15:10:00 Emergency ER RAEGAN FERREIRA [facility] [id number] [facility] 2025-04-08 14:32:00 2025-04-08 15:10:00 Departed Emergency Room [facility] [id number] [facility] 2025-04-06 17:17:00 2025-04-06 22:15:00 Emergency X SAPNA QUIROZ SANDRA [facility] ERT [id number] [facility] 2025-04-06 00:00:00 2025-04-06 00:00:00 Outpatient SOLITARIOBenjamin PEDRO CYNTHIA MARIE [id number] [facility] 2025-04-05 15:15:00 2025-04-05 15:15:00 Outpatient LAB90 CYNTHIA MARIE [id number] [facility] 2025-04-05 14:30:00 2025-04-05 14:30:00 Outpatient DEMETRIUS TOBAR CYNTHIA MARIE [id number] Cynthia [facility] 2025-04-04 00:00:00 2025-04-04 00:00:00 Outpatient MERCEDES RYDER CYNTHIA MARIE [id number] Cynthia [facility] 2025-04-03 11:30:00 2025-04-03 11:30:00 Outpatient PREZAPEDRO Alexander CYNTHIA MARIE [id number] Cynthia [facility] 2025-03-28 00:00:00 2025-03-28 00:00:00 Outpatient PREZABenjamin, PEDRO CYNTHIA MARIE [id number] Cynthia [facility] 2025-03-23 00:00:00 2025-03-23 00:00:00 Outpatient PREPEDRO VILLANUEVA CYNTHIA MARIE [id number] Cynthia [facility] 2025-03-22 11:00:00 2025-03-22 11:00:00 Outpatient DHARASARAI CYNTHIA MARIE [id number] [facility] 2025-03-21 11:00:00 2025-03-21 11:00:00 Outpatient PREPEDRO VILLANUEVA CYNTHIA MARIE [id number] [facility] 2025-03-21 00:00:00 2025-03-21 00:00:00 Outpatient PREZAPEDRO Alexander CYNTHIA MARIE [id number] [facility] 2025-03-15 00:00:00 2025-03-15 15:59:37 [place] [address] 1.2.840.114 350.1.13.70 8.2.7.2.686 [id number] [facility] 2025-03-09 00:00:00 2025-03-09 00:00:00 Outpatient CYNTHIA MARIE [id number] Cynthia [facility] 2025-02-23 10:30:00 2025-02-23 10:30:00 Outpatient LUIS RICHMOND [id number] [facility] 2025-02-22 11:30:00 2025-02-22 11:30:00 Outpatient LUIS RICHMOND [id number] Cynthia Garcia 2025-02-22 00:00:00 2025-02-22 11:10:42 Case Management Linnea Mccrary [facility] 1.2.840.114 350.1.13.10 4.2.7.2.686 [id number] [facility] 2025-02-22 00:00:00 2025-02-22 00:00:00 Outpatient CYNTHIA MARIE [id number] [facility] 2025-02-21 00:00:00 2025-02-21 17:20:22 Transition of Care Jodi Berg Kristi L SHEARN RODRIGO [facility] 1.2.840.114 350.1.13.10 4.2.7.2.686 [id number] [facility] [id number] [facility] 2025-02-17 04:55:00 2025-02-19 17:00:00 Hospital Encounter David MUÑOZETHAN MICHLENE [facility] BERNARDINO [id number] [facility] 2025-02-19 00:00:00 2025-02-19 00:00:00 Outpatient CYNTHIA MARIE [id number] [facility] 2025-02-17 11:30:00 2025-02-17 11:30:00 Outpatient LUIS RICHMOND [id number] Cynthia [facility] 2025-02-14 00:00:00 2025-02-14 14:31:37 [facility] 1.2.840.114 350.1.13.70 8.2.7.2.686 [id number] [facility] 2025-02-13 19:34:00 2025-02-13 21:40:00 Emergency EM Uzma Jacobo [facility] [id number] [facility] 2025-02-13 19:34:00 2025-02-13 21:40:00 Emergency EM Uzma Jacobo [facility] [id number] [address] [facility] 2025-02-13 13:50:00 2025-02-13 19:00:00 Emergency X ALCON MEGAN [facility]RAUSTO [facility] [id number] [facility] 2025-02-13 11:40:00 2025-02-13 11:40:00 Outpatient LAB90 CYNTHIA MARIE [id number] Cynthia [facility] 2025-02-13 00:00:00 2025-02-13 00:00:00 Outpatient CYNTHIA MARIE [id number] Cynthia [facility] 2025-02-13 00:00:00 2025-02-13 00:00:00 Outpatient ZENIA SOLER [id number] [facility] 2025-02-13 00:00:00 2025-02-13 00:00:00 Outpatient LEONIDES LARIOS [id number] [facility] 2025-02-10 16:15:00 2025-02-10 16:15:00 Outpatient LAB90 CYNTHIA MARIE [id number] [facility] 2025-02-10 15:30:00 2025-02-10 15:30:00 Outpatient ZENIA SOLER [id number] [facility] 2025-02-10 00:00:00 2025-02-10 00:00:00 Outpatient CYNTHIA MARIE [id number] Cynthia [facility] 2025-02-07 17:52:00 2025-02-09 12:55:00 Inpatient Emergency ROCÍO WEBB [facility] Neurology [id number] [facility] 2025-02-09 00:00:00 2025-02-09 00:00:00 Outpatient ZENIA SOLER [id number] [facility]thia [facility] 2025-02-08 00:00:00 2025-02-08 00:00:00 Outpatient PEDRO DELANEY [id number] Cynthia [facility] 2025-02-08 00:00:00 2025-02-08 00:00:00 Outpatient CYNTHIA MARIE [id number] Cynthia [facility] 2025-02-05 18:33:00 2025-02-07 13:58:00 Inpatient Emergency JOCY LAST [facility] Neurology [id number] [facility] 2025-02-05 18:33:00 2025-02-07 13:58:00 Hospital Encounter Dominic HaleyLast Callahan Ryan Drey [facility] 1.2.840.114 350.1.13.70 8.2.7.2.686 [id number] [facility] 2025-02-06 00:00:00 2025-02-06 10:50:25 Patient Outreach [place] [address] 1.2.840.114 350.1.13.70 8.2.7.2.686 [id number] [facility] 2025-02-06 00:00:00 2025-02-06 00:00:00 Outpatient CYNTHIA MARIE [id number] Cynthia [facility] 2024-10-25 00:00:00 2024-10-25 00:00:00 Outpatient TIFFANY PUENTE [id number] [facility] 2024-10-25 00:00:00 2024-10-25 00:00:00 Outpatient CYNTHIA MARIE [id number] Cynthia [facility] 2024-10-24 23:56:00 2024-10-24 23:56:00 [facility] [id number] [facility] 2024-10-18 02:35:00 2024-10-24 18:45:00 Inpatient EM Segundo Toledo HCAPM INTE [id number] [facility] 2024-10-18 03:04:00 2024-10-18 03:04:00 Outpatient Gus SantamariaNW REF [id number] [facility] 2024-10-17 19:10:00 2024-10-18 00:30:00 Emergency EM Gus Santamaria [facility] [id number] [facility] 2024-10-18 00:00:00 2024-10-18 00:00:00 Outpatient CYNTHIA MARIE [id number] Cynthia Garcia 2024-10-18 00:00:00 2024-10-18 00:00:00 Outpatient CYNTHIA MARIE [id number] Cynthia Garcia 2024-10-08 14:45:00 2024-10-08 19:03:00 Emergency Ho [facility] 1.2.840.114 350.1.13.70 8.2.7.2.686 [id number] [facility] 2024-10-08 14:45:00 2024-10-08 19:03:00 Emergency Emergency HO STOKES [facility] General Medicine [id number] [facility] 2024-10-06 00:00:00 2024-10-06 00:00:00 Outpatient GURWINDER THOMPSON [id number] [facility] 2024-10-05 00:00:00 2024-10-05 00:00:00 Outpatient TIFFANY PUENTE [id number] [facility] 2023-11-05 00:00:00 2024-09-03 02:17:06 Orders Only Doctor Unassigned, Jud Doctor Unassigned, Jud [facility] 1.2.840.114 350.1.13.10 4.2.7.2.686 [id number] [facility] 2023-11-18 00:00:00 2024-09-03 02:07:30 Orders Only Doctor Unassigned, Jud Doctor Unassigned, Jud [facility] 1.2.840.114 350.1.13.10 4.2.7.2.686 [id number] [facility] 2024-08-10 06:02:28 2024-08-10 23:59:00 Outpatient [facility] [id number] [facility] 2024-08-10 05:24:00 2024-08-10 15:10:00 Emergency Brooklynn Paige Wendi Ornelas [facility] 1..114 350.1.13.70 8.2.7.2.686 [id number] [facility] 2024-08-10 05:24:00 2024-08-10 15:10:00 Emergency Emergency WENDI DICK [facility] General Medicine [id number] [facility] 2024-08-10 00:00:00 2024-08-10 06:02:27 Orders Only System, Provider Not In [facility] 1..114 350.1.13.70 8.2.7.2.686 [id number] [facility] 2024-04-14 11:30:00 2024-04-14 11:30:00 Outpatient PEDRO DELANEY [id number] [facility] 2024-04-02 20:43:00 2024-04-03 00:56:00 Emergency X CHRISSY MOHR TIMOTHY [facility] E[facility] [id number] [facility] 2024-04-02 20:43:00 2024-04-03 00:56:00 Emergency Mohr Chrissy [facility] 1.84.114 350.1.13.10 4.2.7.2.686 [id number] [facility] 2024-03-08 00:00:00 2024-03-08 00:00:00 Outpatient MD CYNTHIA MARLEY [id number] Cynthia valdo 2024-01-14 00:00:00 2024-02-20 18:26:15 Patient Secure Msg Doctor Unassigned, Jud [facility] 1.284.114 350.1.13.10 4.2.7.2.686 [id number] [facility] 2024-02-19 00:00:00 2024-02-19 00:00:00 Outpatient PEDRO DELANEY CYNTHIA [id number] [facility] 2024-02-16 10:15:00 2024-02-16 10:15:00 Outpatient MORALES BALL CYNTHIA CYNTHIA [id number] Cynthia Garcia 2024-01-13 00:00:00 2024-02-13 18:19:27 Patient Secure Msg Doctor Unassigned, Jud [facility] 1.840.114 350.1.13.10 4.2.7.2.686 [id number] [facility] 2024-01-12 22:04:00 2024-01-13 00:00:00 Emergency X RADHA WYATT BRENT [facility] ERT [id number] [facility] 2024-01-12 22:04:00 2024-01-13 00:00:00 Emergency Radha Wyatt J [facility] 1.840.114 350.1.13.10 4.2.7.2.686 [id number] [facility] 2024-01-12 00:00:00 2024-01-12 16:22:23 Transition of Care Gerardo Veronique HOLTBubba RODRIGO BENAVIDES ..840.114 350.1.13.10 4.2.7.2.686 [id number] [facility] 2024-01-09 16:11:00 2024-01-10 15:56:00 Outpatient X DARRICK FRY [facility] SHEA [id number] [facility] 2024-01-09 16:11:00 2024-01-10 15:56:00 Hospital Encounter Olena Doyle K Paige Khan, Mohammad A. [facility] 1..840.114 350.1.13.10 4.2.7.2.686 [id number] [facility] 2023-12-17 00:00:00 2023-12-17 00:00:00 Transition of Care Jodi Berg BLAYNE BENAV[facility]ES 1.2.840.114 350.1.13.10 4.2.7.2.686 [id number] [facility] 2023-12-14 13:34:00 2023-12-15 11:08:00 Outpatient X REEMA TAL [facility] [id number] [facility] 2023-12-14 13:34:00 2023-12-15 11:08:00 Emergency Mj Bryan Jelani [facility] 1..840.114 350.1.13.10 4.2.7.2.686 [id number] [facility] 2023-12-07 00:00:00 2023-12-07 00:00:00 Outpatient PEDRO DELANEY [id number] Cynthia Garcia 2023-12-02 13:05:00 2023-12-03 19:00:00 Outpatient X MOJGAN SUERO [facility] [id number] [facility] 2023-12-02 13:05:00 2023-12-03 19:00:00 Hospital Encounter Connor Renee [facility] 1..840.114 350.1.13.10 4.2.7.2.686 [id number] [facility] 2023-12-01 00:00:00 2023-12-01 10:40:26 Transition of Care Chari Mckinley 1.2.840.114 350.1.13.10 4.2.7.2.686 [id number] [facility] 2023-11-30 00:00:00 2023-11-30 10:41:56 Transition of Care Chari Mckinley RODRIGO BENAVIDES 1.2.840.114 350.1.13.10 4.2.7.2.686 [id number] [facility] 2023-11-21 21:12:00 2023-11-28 16:01:00 Inpatient X MADELINE PIERRE [facility] [id number] [facility] 2023-11-21 21:12:00 2023-11-28 16:01:00 Hospital Encounter Madeline Pierre Donnell Khan, Cr Mcdermott, Ivis Rodriguez, Ryder Joshi [facility] 1.2.840.114 350.1.13.10 4.2.7.2.686 [id number] [facility] 2023-11-26 14:15:00 2023-11-26 14:15:00 Outpatient AARON LEDESMA [id number] [facility] 2023-11-23 13:45:00 2023-11-23 14:45:00 Surgery Cris Molina [facility] 1.2.840.114 350.1.13.10 4.2.7.2.686 [id number] [facility] 2023-11-18 00:00:00 2023-11-18 00:00:00 Outpatient EFRA BABCOCK [id number] Cynthia [facility] 2023-11-15 00:00:00 2023-11-15 00:00:00 Outpatient CYNTHIA MARIE [id number] Cynthia [facility] 2023-11-15 00:00:00 2023-11-15 00:00:00 Outpatient CYNTHIA MARIE [id number] Cynthia [facility] 2023-11-15 00:00:00 2023-11-15 00:00:00 Outpatient CYNTHIA MARIE [id number] Cynthia [facility] 2023-11-12 15:15:00 2023-11-12 15:15:00 Outpatient PEDRO DELANEY CYNTHIA MARIE [id number] Cynthia [facility] 2023-11-12 00:00:00 2023-11-12 00:00:00 Outpatient CYNTHIA MARIE [id number] [facility] 2023-11-10 09:30:00 2023-11-10 09:30:00 Outpatient LIEBERMANMYLA PATEL CYNTHIA MARIE [id number] Cynthia [facility] 2023-11-09 00:00:00 2023-11-09 00:00:00 Outpatient PEDRO DELANEY CYNTHIA MARIE [id number] Cynthia [facility] 2023-11-09 00:00:00 2023-11-09 00:00:00 Outpatient LIEBERMANMYLA PATEL CYNTHIA MARIE [id number] [facility] 2023-11-07 17:51:00 2023-11-07 22:04:00 emergency [facility] [id number] 2023-11-07 17:51:00 2023-11-07 22:04:00 Emergency ER BENJAMINMAYE [facility] [id number] [facility] 2023-11-05 00:00:00 2023-11-05 00:00:00 Outpatient PROVIDERTIFFANY [id number] Cynthia [facility] 2023-11-03 00:00:00 2023-11-03 00:00:00 Outpatient CYNTHIA MARIE [id number] Cynthia [facility] 2023-10-29 00:00:00 2023-10-29 00:00:00 Outpatient PEDRO DELANEY [id number] Cynthia [facility] 2023-10-26 00:00:00 2023-10-26 00:00:00 Outpatient EFRA BABCOCK [id number] [facility] 2023-10-22 00:00:00 2023-10-22 00:00:00 Outpatient PEDRO DELANEY [id number] [facility] 2023-10-16 11:10:00 2023-10-16 11:10:00 Outpatient ABDOULAYE SIDDHARTH CYNTHIA MARIE [id number] [facility] 2023-10-15 00:00:00 2023-10-15 00:00:00 Outpatient MD CYNTHIA MARLEY [id number] [facility] 2023-10-15 00:00:00 2023-10-15 00:00:00 Outpatient GUILLENMARGOT PIERCE CYNTHIA MARIE [id number] [facility] 2023-10-15 00:00:00 2023-10-15 00:00:00 Outpatient MINDYMARGOT CYNTHIA MARIE [id number] [facility] 2023-10-06 10:45:00 2023-10-06 10:45:00 Outpatient SARAI JULES [id number] [facility] 2023-10-05 11:30:00 2023-10-05 11:30:00 Outpatient PRECHRISTIANSPEDRO [id number] [facility] 2023-10-01 00:00:00 2023-10-01 00:00:00 Outpatient PREZASPEDRO [id number] [facility] 2023-09-30 14:15:00 2023-09-30 14:15:00 Outpatient PREZAPEDRO Alexander [id number] [facility] 2023-09-24 00:00:00 2023-09-24 00:00:00 Outpatient PREZASPEDRO [id number] [facility] 2023-09-23 00:00:00 2023-09-23 00:00:00 Outpatient TIFFANY PUENTE [id number] Cynthia Seybold 2023-09-22 00:00:00 2023-09-22 00:00:00 Outpatient PREZAPEDRO Alexander [id number] Cynthia Seybold 2023-09-22 00:00:00 2023-09-22 00:00:00 Outpatient MINDYMARGOT CYNTHIA MARIE [id number] Cynthia Seybold 2023-09-16 00:00:00 2023-09-16 00:00:00 Outpatient PEDRO DELANEY CYNTHIA [id number] Cynthia [facility] 2023-09-16 00:00:00 2023-09-16 00:00:00 Outpatient PEDRO DELANEY CYNTHIA [id number] Cynthia Garcia 2023-09-16 00:00:00 2023-09-16 00:00:00 Outpatient PEDRO DELANEY CYNTHIA [id number] Cyn[facility] 2023-09-14 00:00:00 2023-09-14 00:00:00 Outpatient MARGOT GUILLEN CYNTHIA CYNTHIA [id number] [facility] 2023-09-14 00:00:00 2023-09-14 00:00:00 Outpatient MARGOT GUILLEN CYNTHIA CYNTHIA [id number] Cyn[facility] 2023-09-11 11:00:00 2023-09-11 11:00:00 Outpatient BJYONATAN AGUIRRE CYNTHIA MARIE [id number] [facility] 2023-09-09 00:00:00 2023-09-09 00:00:00 Outpatient CYNTHIA CYNTHIA [id number] [facility] 2023-09-04 00:14:00 2023-09-08 10:51:00 Hospital Encounter ER London Loyola, Edward Gandhichalo Edward [facility] [id number] [facility] 2023-09-04 00:14:00 2023-09-08 10:51:00 Inpatient ER FARRELL EDWARD LIPSCOMB Neurosurger y [id number] [facility] 2023-09-07 18:41:43 2023-09-07 18:41:43 Outpatient EDWARD MANE [facility] [id number] [facility] 2023-09-03 20:52:00 2023-09-03 23:44:00 emergency [facility] [id number] 2023-09-03 20:52:00 2023-09-03 23:44:00 Emergency ER JUANY [facility] [id number] [facility] 2023-09-02 00:00:00 2023-09-02 00:00:00 Outpatient PROVIDER, TIFFANY MARIE [id number] Cynthia Garcia 2023-09-01 15:30:00 2023-09-01 15:30:00 Outpatient DEMETRIUS TOBAR [id number] Cynthia [facility] 2023-08-19 00:00:00 2023-08-19 00:00:[address] [facility] [id number] [facility] 2023-08-13 00:00:00 2023-08-13 13:44:39 Orders Only Quin Monet [facility] [id number] [facility] 2023-08-12 13:49:00 2023-08-12 16:12:00 Emergency X MJ BRYAN [facility] ERT [id number] [facility] 2023-08-12 13:49:00 2023-08-12 16:12:00 Emergency Mj Bryan [facility] 1.2.840.114 350.1.13.10 4.2.7.2.686 [id number] [facility] 2023-06-15 00:00:00 2023-06-18 10:20:39 Orders Only Provider, Not In System [facility] [id number] [facility] 2023-06-13 03:43:00 2023-06-16 19:45:00 Hospital Encounter ER Marianela Collazo Sahar [facility] [id number] [facility] 2023-06-13 03:43:00 2023-06-16 19:45:00 Inpatient ER AYDEE GO [facility] Internal Med [id number] [facility] 2023-06-13 16:30:06 2023-06-13 16:30:06 Outpatient AYDEE DICKENS [facility] [id number] [facility] 2023-06-13 00:00:00 2023-06-13 00:00:00 Orders Only [facility] [id number] [facility] 2023-06-13 00:00:00 2023-06-13 00:00:00 Travel [facility] [id number] [facility] 2023-06-12 00:00:00 2023-06-12 00:00:00 Telephone [place] [facility] [id number] [facility] 2023-05-28 06:45:00 2023-06-04 17:36:00 Hospital Encounter Adam Royal [facility] [id number] [facility] 2023-05-28 06:45:00 2023-06-04 17:36:00 Inpatient ADAM ROYAL [facility] Surgery [id number] [facility] 2023-06-01 09:10:00 2023-06-01 13:00:00 Anesthesia Event Harry Newsome Antwon [facility] [id number] [facility] 2023-06-01 09:00:00 2023-06-01 11:30:00 Surgery Adam Garcia [facility] [id number] [facility] 2023-06-01 09:47:57 2023-06-01 09:47:[address] [facility] [id number] [facility] 2023-06-01 09:40:34 2023-06-01 09:40:34 Outpatient ADAM ROYAL [facility] [id number] [facility] 2023-05-31 09:25:55 2023-05-31 23:59:00 Inpatient ADAM ROYAL [facility] [id number] [facility] 2023-05-31 09:00:00 2023-05-31 23:59:00 Hospital Encounter Adam Garcia [facility] [id number] [facility] 2023-05-28 18:15:29 2023-05-28 18:15:29 Outpatient ADAM ROYAL [facility] [id number] [facility] 2023-05-28 08:30:00 2023-05-28 11:54:00 Anesthesia Event Yue Bui [facility] [id number] [facility] 2023-05-28 11:41:14 2023-05-28 11:41:14 Outpatient ADAM ROYAL [facility] [id number] [facility] 2023-05-28 08:30:00 2023-05-28 11:00:00 Surgery Adam Garcia [facility] [id number] [facility] 2023-05-28 10:00:47 2023-05-28 10:00:47 Outpatient ADAM ROYAL [facility] [id number] [facility] 2023-05-28 00:00:00 2023-05-28 00:00:00 Travel [facility] [id number] [facility] 2023-05-26 09:00:00 2023-05-26 09:00:00 Hospital Encounter Adam Garcia [facility] [id number] [facility] 2023-05-26 00:00:00 2023-05-26 00:00:00 Outpatient ADAM ROYAL [facility] [id number] [facility] 2023-05-26 00:00:00 2023-05-26 00:00:00 Outpatient NICOLETTE [facility] [id number] [facility] 2023-05-26 00:00:00 2023-05-26 00:00:00 Travel [facility] [id number] [facility] 2023-05-13 11:43:03 2023-05-13 11:43:03 Outpatient SFA SFA Kailey Martínez 2023-05-12 00:00:00 2023-05-12 00:00:00 Orders Only Adam Garcia [facility] [id number] [facility] 2023-05-08 14:11:21 2023-05-08 14:11:21 Outpatient [facility]FA BHARAT Angelita Martínez 2023-03-29 19:25:00 2023-04-02 20:48:00 Hospital Encounter ER Connie Davey Shireen Kulkarni, Mrinalini Z [facility] [id number] [facility] 2023-03-29 19:25:00 2023-04-02 20:48:00 Inpatient ER THOMAS LOZOYA [facility] [id number] [facility] 2023-03-31 08:32:56 2023-03-31 00:00:00 Inpatient ER MARIAH ALDRIDGE SLERigoberto [facility] [id number] [facility] 2023-03-30 10:24:12 2023-03-30 23:59:00 Outpatient ER CONNIE DAVEY SLERigoberto SLE [id number] [facility] 2023-03-30 09:40:00 2023-03-30 23:59:00 Hospital Encounter Connie Davey [facility] [id number] [facility] 2023-03-30 13:46:20 2023-03-30 13:46:20 Outpatient ER MARIAH ALDRIDGE SLERigoberto SLE [id number] [facility] 2023-03-30 13:46:14 2023-03-30 13:46:14 Outpatient ER MARIAH ALDRIDGE SLERigoberto SLE [id number] [facility] 2023-03-30 10:24:04 2023-03-30 10:24:04 Outpatient ER CONNIE DAVEY SLERigoberto SLE [id number] [facility] 2023-03-30 00:00:00 2023-03-30 00:00:00 Orders Only [facility] [id number] [facility] 2023-03-30 00:00:00 2023-03-30 00:00:00 Travel [facility] [id number] [facility] 2022-12-11 08:56:00 2022-12-11 15:29:00 Emergency X Alfonso ALVARADO [facility] ERT [id number] [facility] 2022-12-11 08:56:00 2022-12-11 15:29:00 Emergency Alfonso Alvarado [facility] 1.2.840.114 350.1.13.10 4.2.7.2.686 [id number] [facility] 2022-11-17 17:25:00 2022-11-18 01:19:00 Emergency X RITCHIE MOTTA [facility] ERT [id number] [facility] 2022-11-17 17:25:00 2022-11-18 01:19:00 Emergency BrianaRitchie vanessa E [facility] 1.2.840.114 350.1.13.10 4.2.7.2.686 [id number] [facility] 2022-08-28 00:00:00 2022-08-28 00:00:00 Patient Outreach Margot Beckman 1.2.840.114 350.1.13.10 4.2.7.2.686 [id number] [facility] 2022-08-20 00:00:00 2022-08-20 00:00:00 Patient Outreach Margot Beckman 1.2.840.114 350.1.13.10 4.2.7.2.686 [id number] [facility] 2022-08-02 17:30:00 2022-08-03 14:29:00 Hospital Encounter Halima Guan Kinjal M Ibe, Chimkama Ngozi Cynthia [facility] [id number] [facility] 2022-08-02 17:30:00 2022-08-03 14:29:00 Outpatient [facility] [id number] [facility] 2022-08-03 00:00:00 2022-08-03 00:00:00 Orders Only [facility] [id number] [facility] 2022-08-02 00:00:00 2022-08-02 00:00:00 Travel [facility] [id number] [facility] 2022-07-31 11:42:00 2022-08-01 21:48:00 Inpatient X MAYRAAMY DAMI [facility] [id number] [facility] 2022-07-31 11:42:00 2022-08-01 21:48:00 Hospital Encounter Megan Rondon Dami Lowry [facility] 1.2.840.114 350.1.13.10 4.2.7.2.686 [id number] [facility] 2022-08-01 00:00:00 2022-08-01 00:00:00 Transition of Care Maria Teresa Nicole RODRIGO BENAVIDES 1.2.840.114 350.1.13.10 4.2.7.2.686 [id number] [facility] 2022-07-28 14:41:38 2022-07-28 14:41:38 Outpatient SFA [facility] [id number] Adria Martínez 2022-07-28 00:00:00 2022-07-28 00:00:00 Outpatient Visit [id number] 2022-07-24 13:24:40 2022-07-24 13:24:40 Outpatient SFA [facility] 0105 Adria Martínez 2022-05-23 14:51:01 2022-05-23 14:51:01 Outpatient SFA [facility] 1104 Adria Martínez 2022-05-23 00:00:00 2022-05-23 00:00:00 Outpatient Visit [id number] 2022-05-04 20:22:00 2022-05-08 14:44:00 Out[facility] [id number] [facility] 2022-05-04 20:22:00 2022-05-08 14:44:00 Emergency Brandyn Mcfarlane [facility] 1.2840.114 350.1.13.10 4.2.7.2.686 [id number] [facility] 2022-04-13 13:06:00 2022-04-15 15:00:00 Inpatient X [facility] [id number] [facility] 2022-04-13 13:06:00 2022-04-15 15:00:00 Hospital Encounter Sapna Quiroz Muhammad Zeeshan [facility] 1.20.114 350.1.13.10 4.2.7.2.686 [id number] [facility] 2022-02-19 10:20:00 2022-02-19 10:30:00 Imm/Inj Visit [facility] Jose Santiago [facility] 1.0.114 350.1.13.10 4.2.7.2.686 [id number] [facility] 2022-02-19 10:20:00 2022-02-19 10:20:00 Outpatient R JOSE PAK [facility] [id number] [facility] 2021-11-23 15:07:00 2021-11-23 17:03:00 Emergency X WILLIAMS ALLISON [facility] ERT [id number] [facility] 2021-11-23 15:07:00 2021-11-23 17:03:00 Emergency Megan Rondon Folusho F [facility] 1.2840.114 350.1.13.10 4.2.7.2.686 [id number] [facility] 2021-11-21 09:40:00 2021-11-21 09:40:00 Outpatient R [facility] [id number] [facility] 2021-05-24 09:30:00 2021-05-24 09:30:00 Outpatient R JOSE PAK [facility] [id number] [facility] 2021-05-24 08:47:51 2021-05-24 08:57:51 Imm/Inj Visit Vaccine, Holiday Dangelo Pak [facility] 1.2840.114 350.1.13.10 4.2.7.2.686 [id number] [facility] 2021-05-03 09:40:00 2021-05-03 09:59:35 Outpatient R JOSE PAK [facility] [id number] [facility] 2021-05-03 09:17:43 2021-05-03 09:59:35 Imm/Inj Visit Vaccine, Holiday Dangelo Pak [facility] 1.2840.114 350.1.13.10 4.2.7.2.686 [id number] [facility] 2021-04-16 00:00:00 2021-04-16 00:00:00 Orders Only Doctor Unassigned, Jud [facility] 1.2840.114 350.1.13.10 4.2.7.2.686 [id number] [facility] 2021-03-17 00:00:00 2021-03-17 00:00:00 Telephone Miky Nava [facility] 1.2840.114 350.1.13.10 4.2.7.2.686 [id number] [facility] 2021-03-16 20:08:00 2021-03-16 23:24:00 Emergency Fabrice Chakraborty [facility] 1.2.840.114 350.1.13.10 4.2.7.2.686 [id number] [facility] 2021-03-14 18:59:34 2021-03-14 20:19:13 Urgent Care Lydia Desouza Unknown, Attending [facility] 1.2.840.114 350.1.13.10 4.2.7.2.686 [id number] [facility] 2021-03-14 19:00:00 2021-03-14 19:00:00 Outpatient R UNKNOWN, ATTENDING [facility] [id number] [facility] 2021-02-19 10:49:00 2021-02-19 14:48:00 Emergency LemonsEstefania shoemaker Benjamin [facility] 1.2.840.114 350.1.13.10 4.2.7.2.686 [id number] [facility] 2019-03-09 00:00:00 2019-03-09 00:00:00 Dick ArcosYehuda [facility] 1.2.840.114 350.1.13.10 4.2.7.2.686 [id number] [facility] 2019-03-09 00:00:00 2019-03-09 00:00:00 Dick ArcosYehuda [facility] 1.2.840.114 350.1.13.10 4.2.7.2.686 [id number] Results Test Description Test Time Test Comments Results Result Comments Source CT Thorax wo contrast 00:00:02 EXAM: CT THORAX WO CONTRAST ORDERING PHYSICIAN: ROSALBA LAINEZ HISTORY: Abnormal xray - lung nodule, >= 1 cm COMPARISON: Prior same-day chest radiograph. TECHNIQUE: CT of the chest without contrast.. This examination wasperformed according to ALARA principles. FINDINGS: Lower neck: Imaged portions of the thyroid gland are normal. No visualizedcervical adenopathy. Lung and Large Airways: Central airways are clear. There are diffuse mildemphysematous changes of both lungs. There is diffuse mild groundglassattenuation of the lung parenchyma, likely representing chronicsmoking-related respiratory bronchiolitis. There is mildly prominentstreaky atelectasis throughout both lower lobes and the lingula. Noconsolidation. There is a small calcified granuloma at the apex of the leftlung. There are a few scattered sub-3 mm micronodules and small fissurallymph nodes throughout both lungs. However there is no visualizedsuspicious pulmonary nodule. Pleural space: No pleural effusion or pneumothorax. Heart: Normal heart size. No pericardial thickening or effusion. ?Severemultivessel coronary artery calcific atherosclerosis. Mediastinum: Normal caliber thoracic aorta with mild calcificatherosclerosis.Th e main pulmonary artery is normal in caliber.. Normalesophagus. Lymph nodes: No mediastinal, hilar, or axillary lymphadenopathy. Upper Abdomen: There are postsurgical changes from prior cholecystectomy.There is a 2 cm hypodense left adrenal nodule with a density of -8Hounsfield units, consistent with a benign lipid rich adrenal adenoma.There is a punctate nonobstructing right upper pole renal calculus. Bones: No fracture or suspicious osseous lesion. There are partially imagedpostsurgical changes from ACDF of the lower cervical spine. There are mildmultilevel spondylotic changes of the thoracic spine. Chest wall and soft tissues: Normal. [id number] 22:05:04* Test Item Value Reference Range Interpretation Comme nts NT-proBNP (test code = 66558-9) 414 pg/mL <=125 LYNDSAY (test code = LYNDSAY) Result Indeterminate-Consid er causes of NT-proBNP elevation other than Heart failure such as acute coronary syndrome, pulmonary embolism, pulmonary hypertension, sepsis, stroke, and renal dysfunction. Lab Interpretation (test code = 62203-3) Abnormal [facility]. METABOLIC PANEL (50580)2025-04-09 21:56:23* Test Item Value Reference Range Interpretation Comme nts NA (test code = 6685422247) 138 mmol/L 135-145 K (test code = 8980497707) 3.6 mmol/L 3.5-5.0 CL (test code = 8635882649) 104 mmol/L 98-108 CO2 TOTAL (test code = 4290733139) 25 mmol/L 23-31 AGAP (test code = 7395223747) 9 2-16 BUN (test code = 1385739466) 11 mg/dL 7-23 GLUCOSE (test code = 8413253468) 104 mg/dL 70-110 CREATININE (test code = 2160-0) 0.62 mg/dL 0.50-1.04 TOTAL BILI (test code = 4793194116) 0.2 mg/dL 0.1-1.1 CALCIUM (test code = 4857437167) 8.5 mg/dL 8.6-10.6 L T PROTEIN (test code = 8295552287) 7.7 g/dL 6.3-8.2 ALBUMIN (test code = 9098558220) 4.1 g/dL 3.5-5.0 ALK PHOS (test code = 2768197588) 82 U/L 34-122 ALTv (test code = 1742-6) 11 U/L 5-35 AST(SGOT) (test code = 8007187336) 22 U/L 13-40 eGFR (test code = 55539-3) 106.6 mL/min/1.73m2 CKD-EPI eGFR (2020). Assuming creatinine has been stable day-to-day for at least three months, the eGFR indicates Category G1 (>= 90 mL/min/1.73 m2) Lab Interpretation (test code = 20713-2) [facility] [id number] 21:56:18XR CHEST 1 VW HISTORY: ?"chest pain " Additional History: N/A COMPARISON: 04/03/2024 Technical quality: Adequate TECHNIQUE: Radiographs of the XR CHEST 1 VW FINDINGS: ?There is a nonspecific focal nodular opacity overlying the left lung base.The cardiomediastinal silhouette is within normal limits.There is no pneumothorax or pleural effusion. There are no acute osseous abnormalities.[facility] 21:56:02* Test Item Value Reference Range Interpretation Comme nts LIPASE (test code = 6970450276) 31 U/L 0-220 Lab Interpretation (test cod e = 85333-1) Normal [facility] WITH [id number] 21:42:02* Test Item Value Reference Range Interpretation Comme nts WBC (test code = 6690-2) 7.47 4.30-11.10 RBC (test code = 789-8) 4.09 3.93-5.25 HGB (test code = 718-7) 10.4 g/dL 11.6-15.0 L HCT (test code = 4544-3) 34.5 % 35.7-45.2 L MCV (test code = 787-2) 84.4 fL 80.6-95.5 MCH (test code = 785-6) 25.4 pg 25.9-32.8 L MCHC (test code = 786-4) 30.1 g/dL 31.6-35.1 L RDW-SD (test code = 83060-3) 50.7 fL 39.0-49.9 H RDW-CV (test code = 788-0) 16.5 % 12.0-15.5 H PLT (test code = 777-3) 330 166-358 MPV (test code = 89144-0) 8.6 fL 9.5-12.9 L NRBC/100 WBC (test code = 3853415525) 0 0.0-10.0 NRBC x10^3 (test code = 6134870466) See_Comment [Automated messa ge] The system which generated this result transmitted reference range: 10*3/?L. The reference range was not used to interpret this result as normal/abnormal. GRAN MAT (NEUT) % (test code = 770-8) 60.8 % IMM GRAN % (test code = 9032781028) 0.4 % LYMPH % (test code = 736-9) 25.7 % MONO % (test code = 5905-5) 10.6 % EOS % (test code = 713-8) 2 % BASO % (test code = 706-2) 0.5 % GRAN MAT x10^3(ANC) (test code = 7750413315) 4.54 10*3/uL 1.88-7.09 IMM GRAN x10^3 (test code = 0623366500) 0.03 10*3/uL 0.00-0.06 LYMPH x10^3 (test code = 731-0) 1.92 10*3/uL 1.32-3.29 MONO x10^3 (test code = 742-7) 0.79 10*3/uL 0.33-0.92 EOS x10^3 (test code = 711-2) 0.15 10*3/uL 0.03-0.39 BASO x10^3 (test code = 704-7) 0.04 10*3/uL 0.01-0.07 Lab Interpretation (test code = 51316-5) Abnormal [facility] TRAUMA HEAD WO [id number] 02:44:25 Exam: CT Head Without Contrast, 04/06/2025 5:45 PM. Ordering Physician: SAPNA QUIROZ. History: seizure, hit head, h/o etoh . Comparison: CT head 02/11/2025. Technique: CT head was obtained withoutintravenous contrast. ?CT wasperformed according to ALARA (As Low As Reasonably Achievable). Technical Quality: Motion degrades image quality somewhat.. Findings:There is no parenchymal hemorrhage, mass effect, or midline shift. Thereare no extra-axial fluid collections. Rose- white matter differentiation ispreserved. There is no acute major vascular territory infarct. Ventricles, basal cisterns, and cortical sulci are normal in caliber. Osseous structures are unremarkable. Visualized orbits and mastoidcomplexes are normal. ?Paranasal sinuses are clear.[facility] GLUCOSE (AUTOMATED)2025-02-19 17:40:00* Test Item Value Reference Range Interpretation Comme nts POCT GLU (test code = 8213744918) 207 mg/dL 70-110 H Lab Interpretation (test cod e = 75191-4) Abnormal [facility] GLUCOSE (AUTOMATED)2025-02-19 14:06:28* Test Item Value Reference Range Interpretation Comme nts POCT GLU (test code = 1330570336) 93 mg/dL 70-110 Lab Interpretation (test cod e = 04009-9) Normal [facility] GLUCOSE (AUTOMATED)2025-02-19 02:34:58* Test Item Value Reference Range Interpretation Comme nts POCT GLU (test code = 7979236586) 101 mg/dL 70-110 Lab Interpretation (test cod e = 15464-9) Normal [facility] Gdvmquz2443-05-40 23:42:25* Test Item Value Reference Range Interpretation Comme nts Height (test code = 8205333522) 62 in Weight (test code = 3246947339) 186 lbs Systolic BP (test code = 4782454915) 146 mmHg Diastolic BP (test code = 7519373948) 59 mmHg Heart Rate (test code = 2506819008) 58 bpm BSA (test code = 7947161186) 1.85 m2 LVOT diameter (test code = 6608652076) 2.04 cm LVOT area (test code = 3254850313) 3.3 cm2 LA size (test code = 2388236357) 4.4 cm MV Peak E Evette (test code = 5041113613) 78.6 cm/s E wave decelartion time (test code = 6376724598) 0.2 s MV Peak A Evette (test code = 2369187119) 106.9 cm/s E/A ratio (test code = 1533165212) 0.74 ratio MV Prop V (test code = 8119018892) 122.8 cm/s MV E/e' septal (test code = 3261865237) 8.2 cm/s TASV (test code = 1050651130) 17.7 cm/s Tapse (test code = 4922954834) 2.19 cm LAV(MOD-sp4) (test code = 2001948981) 66.4 mL LVOT stroke volume (test code = 0586951327) 60.5 cm3 LVOT peak evette (test code = 6119853050) 130.8 cm/s LVOT mn grad (test code = 8060455571) 3.7 mmHg AV LVOT peak gradient (test code = 0576537320) 6.8 mmHg LVOT peak VTI (test code = 9491954678) 18.5 cm LV V1 mean (test code = 0916471585) 92 cm/s AV regurgitation pressure 1/2 time (test code = 1846890529) 359.2 ms AI dec slope (test code = 6433888795) 359.8 cm/s2 AI max evette (test code = 5051602861) 441.3 cm/s AI max PG (test code = 9039082113) 77.9 mm[Hg] Aortic valve mean velocity (test code = 4117209816) 128.7 cm/s Ao peak evette (test code = 3768641697) 190.9 cm/s Ao VTI (test code = 3979577250) 28.2 cm AV area by cont VTI (test code = 6359508535) 2.2 cm2 AV area peak evette (test code = 4877110744) 2.2 cm2 Ao max PG (test code = 7089011948) 14.6 mm[Hg] AV peak gradient (test code = 2650119068) 14.6 mmHg AV valve area (test code = 3735313411) 2.15 cm2 AV mean gradient (test code = 2858414416) 7.5 mmHg LA Volume Index (BP) (test code = 3911516016) 35.5 mL/m2 LA volume (BP) (test code = 3226003269) 65.8 mL LAV(MOD-sp2) (test code = 4513783505) 58.4 mL LVIDD (test code = 5022569348) 5.1 cm Left Ventricular End Diastolic Volume by Teichholz Method (test code = 6875315) 123.1 mL IVS (test code = 0732577434) 1.14 cm Interventricular Septum Diastolic Thickness by 2D (test code = 9395417) 1.14 cm LVPWD (test code = 3325358802) 1.12 cm LV RWT (test code = 8732909375) 0.44 LV mass (test code = 5454699397) 221.94 g LV Mass Index (test code = 6857663693) 120 g/m2 PW (test code = 3335523837) 1.12 cm 0.6-1.1 EF(Teich) (test code = 6830013069) 43.9 % LVIDS (test code = 0007462675) 4 cm Left Ventricular End Systolic Volume by Teichholz Method (test code = 6311139) 69.1 mL FS (test code = 1465830581) 22 % EF - 2D (test code = 97366339) 43.9 % A4C EF (test code = 5803293633) 57.2 % EF(sp4-el) (test code = 4910398689) 58.3 % SV(MOD-sp4) (test code = 2881560058) 77 mL SV(sp4-el) (test code = 2016968387) 78.7 mL LV Diastolic Volume (BP) (test code = 2658397487) 121.7 mL LV Diastolic Volume Index (BP) (test code = 1019983852) 65.8 mL/m2 A2C EF (test code = 4201974199) 61.2 % EF(MOD-bp) (test code = 1221259505) 59.3 % EF(sp2-el) (test code = 8917517726) 62.7 % LV Systolic Volume (BP) (test code = 5975963151) 49.6 mL SV(MOD-bp) (test code = 1041096634) 72.1 mL SV(MOD-sp2) (test code = 7736653770) 63.8 mL LV Systolic Volume Index (BP) (test code = 9880273333) 26.8 mL/m2 EF (test code = 2515370125) 59 % Left Ventricular Stroke Volume by 2-D Biplane-MOD (test code = 0862298) 72.1 mL Radiology Study observation (narrative) (test code = 34255-5) LYNDSAY (test code = LYNDSAY) ?Left?Ventricle: Left ventricle is mildly dilated. Dilated by LV volume index calculation. ?Increased ventricular mass. There is moderate concentric hypertrophy. Septal and apical septal wall motion is consistent with conduction abnormality. No regional wall motion abnormalities. Normal systolic function with a visually estimated EF of 55 - 60%. EF by 2D Downs biplane is 59%. There is grade 1 diastolic dysfunction. Normal left ventricular filling pressure. No thrombus present. ?Right?Ventricle: Right ventricle size is normal. Normal systolic function. TAPSE is 2.19 cm. ?Tricuspid?Valve: Trace transvalvular regurgitation. Insufficient tricuspid regurgitation jet to estimate RVSP . ?Aortic?Valve: Mild transvalvular regurgitation. No hemodynamically significant . ?Pericardium: No pericardial effusion. ?As compared to previous study on 01/10/2024, LVEF has normalized. Left VentricleLeft ventricle is mildly dilated. Dilated by LV volume index calculation. Increased ventricular mass. There is moderate concentric hypertrophy. Septal and apical septal wall motion is consistent with conduction abnormality. No regional wall motion abnormalities. Normal systolic function with a visually estimated EF of 55 - 60%. EF by 2D Downs biplane is 59%. There is grade 1 diastolic dysfunction. Normal left ventricular filling pressure. No thrombus present.Right VentricleRight ventricle size is normal. Normal systolic function. TAPSE is 2.19 cm.Left AtriumNot well visualized. Left atrium is mildly dilated. Left atrium volume index is 35.5 mL/m2.Right AtriumNot well visualized. Right atrium size is normal.IVC/SVCIVC diameter is less than or equal to 21 mm and decreases greater than 50% during inspiration; therefore the estimated right atrial pressure is normal (~0-5 mmHg).Mitral ValveMitral valve structure is normal. Trace transvalvular regurgitation. No stenosis.Tricuspid ValveTricuspid valve structure is normal. Trace transvalvular regurgitation. Insufficient tricuspid regurgitation jet to estimate RVSP . No stenosis.Aortic ValveNot well visualized. Mild transvalvular regurgitation. No hemodynamically significant .Pulmonic ValveNot well visualized. Trace transvalvular regurgitation. No stenosis.Ascending AortaNot well visualized. Normal sized aortic root.PericardiumThe pericardium is normal. No pericardial effusion.Study DetailsStudy quality experienced technical difficulty. A complete echocardiogram was performed using 2D, color flow Doppler and spectral Doppler. 3 mL of Optison ultrasound enhancing agent used. Patient exhibited sinus tachycardia. [facility] GLUCOSE (AUTOMATED)2025-02-18 21:37:25* Test Item Value Reference Range Interpretation Comme nts POCT GLU (test code = 2749299577) 118 mg/dL 70-110 H Lab Interpretation (test cod e = 97750-2) Abnormal [facility] GLUCOSE (AUTOMATED)2025-02-18 18:33:55* Test Item Value Reference Range Interpretation Comme nts POCT GLU (test code = 1296951400) 141 mg/dL 70-110 H Lab Interpretation (test cod e = 75116-6) Abnormal [facility] GLUCOSE (AUTOMATED)2025-02-18 17:18:26* Test Item Value Reference Range Interpretation Comme nts POCT GLU (test code = 2546806907) 197 mg/dL 70-110 H Lab Interpretation (test cod e = 29751-4) Abnormal [facility] GLUCOSE (AUTOMATED)2025-02-18 13:17:25* Test Item Value Reference Range Interpretation Comme nts POCT GLU (test code = 4056806264) 122 mg/dL 70-110 H Lab Interpretation (test cod e = 50693-3) [facility]25-[facility] 00:20:27* Test Item Value Reference Range Interpretation Comme nts POCT GLU (test code = 6527186485) 143 mg/dL 70-110 H Lab Interpretation (test cod e = 56933-2) [facility]normal [facility] - Duration of test: Continuous EEG Monitoring (LTM) (ceribell); Authorizing Provider: Ethan Muñoz; Release to patient: [id number] 00:00:00LONG TERM EEG MONITORING SEGMENT #1 02/18/25 ?14:04 to 18:07 (ceribell) REPORT TECHNICAL SUMMARY: TheEEG was recorded digitally using MoleculinibSembraire. The seizure burden reported by Ceribell is 0%. Mild diffuse slowing at delta/theta range is seen. No electrographic seizures or epileptiform abnormalities are seen. Study was limited with artifacts and impedence. IMPRESSION: The seizure burden reported by Ceribell is 0%. Mild diffuse slowing, indicative of moderate diffuse disturbance in cerebral function. No electrographic seizures or epileptiform abnormalities are seen. Results discussed with team after review. Coby Hummel MD [facility] 1 [id number] 21:20:53ORDERING PHYSICIAN: ETHAN UMÑOZ. HISTORY: initial evaluation TECHNIQUE: AP. COMPARISON: 04/02/2024 FINDINGS: Support equipment: ?None. Lungs: ?No focal consolidation is seen. Pleura: ?No effusionor pleural disease is seen. ?No pneumothorax. Mediastinum/Rebeca: ?No masses or adenopathy. Heart: ?The heart is not enlarged. Other: ?No acute osseous abnormality is seen. ACDF is seen at C5-T1.[facility] H[facility] 2 vw [id number] 21:03:25XR HIPS 2 VW BILATERAL INDICATION: pain COMPARISON: None FINDINGS: Mild bilateral hip osteoarthrosis. No acute fracture or dislocation.[facility] GLUCOSE (AUTOMATED)2025-02-17 20:33:53* Test Item Value Reference Range Interpretation Comme nts POCT GLU (test code = 3014260927) 88 mg/dL 70-110 Lab Interpretation (test cod e = 38599-7) Normal [facility] GLUCOSE (AUTOMATED)2025-02-17 16:50:53* Test Item Value Reference Range Interpretation Comme nts POCT GLU (test code = 1850972846) 116 mg/dL 70-110 H Lab Interpretation (test cod e = 82895-9) [id number] 15:31:47* Test Item Value Reference Range Interpretation Comme nts LACTIC ACID (test code = [id number]) 1.29 mmol/L 0.50-2.20 Lab Interpretation (test cod e = 82989-9) Normal [facility] Head wo [id number] 14:55:13EXAM: CT HEAD WO CONTRAST HISTORY: 55 years-old Female; Provided indication: Neuro deficit, acute,stroke suspected . TECHNIQUE: Axial CT of the head, outside study performed on 02/11/2025 anduploaded due to [facility] PACS on 02/17/2025. Coronal and sagittal reformattedimages were generated. COMPARISON: CT head 08/01/2022, 12/11/2022 and 11/26/2023 FINDINGS: The ventricles and cerebral sulci are normal in caliber and configuration.No midline shift or pathological extra-axial fluid collection is present.The basal cisterns are unremarkable. No acute intracranial hemorrhage or ?mass effect is visualized. A 6x 4 mmhyperdensity along the right frontal parasagittal falx, suggestive of tinyincidental meningioma, unchanged dating back to prior exam in 2022. Nosignificant parenchymal attenuation abnormality is seen. The rose-whitematter differentiation is preserved. The mastoid air cells and paranasal air sinuses are clear. The calvariumand central skull base are unremarkable.[facility] Cervical spine wo dgpxmgne6831-17-41 13:46:07CT CERVICAL SPINE WO CONTRAST HISTORY: Female 55 years Neck pain, acute, prior cervical surgery COMPARISON: Cervical spine MRI dated 04/15/2022 TECHNIQUE: Noncontrast CT images of the cervical spine with multiplanarreformats. FINDINGS:Postsurgical changes of C3-C7 ACDF. No hardware complications identified. There is straightening of the normal cervical lordosis. The vertebralbodies are normal in height and alignment. No acute fracture or subluxationis seen. Mild degenerative changes most pronounced at C3- C4 and C4-C5 where at leastmild to moderate neuroforaminal left narrowing is suspected. The prevertebral soft tissues are unremarkable. Small left apical granulomanoted.[facility] 2025-[facility]-17 12:43:49* Test Item Value Reference Range Interpretation Comme nts POCT GLU (test code = 9094672283) 102 mg/dL 70-110 Lab Interpretation (test cod e = 36034-0) Normal [facility] - Duration of test: 20-60 mins; Release to patient: Iiyfmvuxg1373-42-71 00:00:00Date and Time of Procedure: 02/17/2025, 09:11 to 09:32 REPORT TECHNICAL SUMMARY: The EEG was recordeddigitally. Electrodes were applied using the International 10/20 System of electrode placement. Eyemovements and rhythm strip ECG were monitored on separate channels of the ongoing EEG recording. The occipital dominant rhythm consists of moderate amplitude 8.5-9.5 Hz activity. More anteriorly, similar as well as faster frequencies are present, including low amplitude 18-22 Hz activities in the anterior leads. Drowsiness and sleep do not reveal any abnormalities Photic stimulation does not elicit any abnormalities. Hyperventilation was not performed. IMPRESSION: This EEG is normal An EMU ([facility] epsy monitoring unit) referral or long-term (24-96 hours) EEG might be beneficial in this case if clinically indicated, as they have significantly greater sensitivity than a 20-60 minute EEG, which has low sensitivity for detecting epileptiform abnormalities . The absence of epileptiform abnormalities in a 20-60 minute EEG does not necessarily rule out a diagnosis of epilepsy or the potential forepileptic seizures to occur. Coby Hummel M.D. Date of interpretation: [facility]25[facility] 2025-02-13 18:38:00Megan Rondon MD ? ? 02/13/2025 ?5:53 PMCritical Care Performed by: Megan Rondon MDAuthorizedby: Megan Rondon MD ?Critical care provider statement: ?Critical care time (minutes): ?60 ?Critical care time was exclusive of: ?Separately billable procedures and treating other patients and teaching time ?Critical care was necessary to treat or prevent imminent or life-threatening deterioration of the following conditions: ?FOOD SERVICE REPRESENTATIVE failure or compromise ?Critical care was time spent personally by [...] provider ?Comments: ? Due to a high prob ability of clinically significant, life threatening deterioration, the [...] time was performed to assess and manage thehigh probability of imminent, life-threatening deterioration that could result in multi-organ failure. It was exclusive of separately billable procedures and treating other patients.[facility] Ppnpsdg8188-32-87 12:30:29* Test Item Value Reference Range Interpretation Comme nts POC Glu (test code = 00860-8) 108 mg/dL 70-99 H POC Performing Location (raisa t code = 8987375022) [facility] Interpretation (test cod e = 43408-9) Abnormal [facility] Mcmgodj7934-97-64 08:13:44* Test Item Value Reference Range Interpretation Comme nts POC Glu (test code = 59014-3) 86 mg/dL 70-99 POC Performing Location (raisa t code = 1289733254) [facility] [id number] 20:55:30* Test Item Value Reference Range Interpretation Comme nts POC Glu (test code = 55208-1) 131 mg/dL 70-99 H POC Performing Location (raisa t code = 7610628253) J3 [facility] Lab Interpretation (test cod e = 56588-6) Abnormal [place] [address] [id number] 15:07:10* Test Item Value Reference Range Interpretation Comme nts Ventricular Rate (test code = 4061800828) BPM Atrial Rate (test code = 4837109477) BPM NM Interval (test code = 3695543351) 142 ms QRS Duration (test code = 6768040057) 82 ms QT/QTc (test code = 5291088829) 334 ms QTc Calculation (test code = 4947925830) 472 ms P-Sherburn (test code = 2374092254) degrees R-Sherburn (test code = 0550900835) degrees T-Sherburn (test code = 5925074236) degrees IMP (test code = IMP) PXN (test code = PXN) [place] [address] agxt8096-50-10 14:57:29* Test Item Value Reference Range Interpretation Comme nts Ventricular Rate (test code = 9280205109) BPM Atrial Rate (test code = 2002808963) BPM NM Interval (test code = 2942945157) 138 ms QRS Duration (test code = 2642374331) 86 ms QT/QTc (test code = 1388684501) 340 ms QTc Calculation (test code = 1901106981) 427 ms P-Sherburn (test code = 4065317339) degrees R-Sherburn (test code = 9811724923) degrees T-Sherburn (test code = 4783108535) degrees IMP (test code = IMP) PXN (test code = PXN) [facility] hhwxocsa5688-99-95 13:30:43* Test Item Value Reference Range Interpretation Comme nts BSA (test code = 7286834870) 2.07 m2 LV A2C EF (test code = 848932-3) 50 % LV A4C EF (test code = 262047-4) 49 % LV stroke vol (test code = 1334803478) 75.85 ml LV SI (A2C) (test code = 5306851344) 18.18 ml/m2 LV SI (A4C) (test code = 8544858220) 32.13 ml/m2 LV SI (A2C) (test code = 4167610232) 37.49 ml LV SV (A4C) (test code = 6559975170) 66.26 ml LVIDd (test code = 8674293004) 50 mm LVIDs (test code = 5966383414) 46 mm LV ESV A2C (test code = 2396712314) 37.89 mL LV EDV BP (test code = 5725090757) 107.01 mL LV ESV A4C (test code = 9426922021) 67.74 mL LV EDV A2C (test code = 5845943245) 75.38 mL LV EDV A4C (test code = 5925028720) 134.00 mL LV ESV 2D (test code = 7889507) 98.33 mL LV EDV 2D (test code = 7381084) 119.35 mL IVSd (test code = 0622163960) 10 mm LVPWd (test code = 8420662160) 9 mm LVOT diam (test code = 2888073300) 21 mm LVOT area (test code = 5992540735) 3.46 cm2 Fractional Shortening 2D (test code = 1280212982) 8 % LVLd (A2C) (test code = 8275337431) 76.31 mm LVLd (A4C) (test code = 7674632612) 88.68 mm LVLs (A2C) (test code = 1092629319) 68.66 mm LVLs (A4C) (test code = 1022470964) 80.82 mm MV E pk evette (test code = 9783367496) 0.79 m/s MV A pk evette (test code = 6170638276) 1.17 m/s MV E/A ratio (test code = 2854656023) MV e' lateral evette (test code = 5316279298) 8.92 cm/s MV DT (test code = 0797069983) 132 ms MV e' septal evette (test code = 7321857) 5.77 cm/s MV E/e' lateral (test code = 5781888) LA vol index (test code = 0451289196) 36.10 mL/m2 MV E/e' septal (test code = 4356287989) LA vol BP (test code = 6312474790) 74.45 ml LVOT pk evette (test code = 5375750339) 1.26 m/s LVOT mn grad (test code = 7344205579) mmHg LVOT Vmean (test code = 4398758509) 0.89 m/s LVOT VTI (test code = 7875307321) 21.9 cm LA area A2C (test code = 3683405282) 24.34 cm2 LA area A4C (test code = 4419282526) 19.78 cm2 LA size (test code = 5957697591) 43 mm LA Vol I BSA (test code = 8964760877) 40.89 ml/m2 LA Vol I (A4C) BSA (test code = 0716315241) 29.42 ml/m2 LA ESV A2C (test code = 4150208540) 84.148728684251621 mL LA ESV A4C (test code = 8233044191) 84.754890890642549 mL AV mn grad (test code = 01037-3) mmHg AV pk grad (test code = 6216438788) mmHg AV mn evette (test code = 4854401093) 1.12 m/s AV pk evette (test code = 22383-0) 1.51 m/s AV VTI (test code = 1015421835) 24.5 cm LVOT pk grad (test code = 4988700649) mmHg AV area cont VTI (test code = 9359762081) 3.10 cm2 AV area pk evette (test code = 4479517104) 2.89 cm2 LVOT Vmax/AV Vmax (test code = 5895485789) 0.83 {ratio} MV mn grad (test code = 2120333615) mmHg MV pk grad (test code = 0885093893) mmHg MV mn evette (test code = 9042981802) 0.891 m/s MV PHT (test code = 4573750144) 39 ms MV area PHT (test code = 3114774905) 5.64 cm2 MV area cont eq (test code = 3709604809) 3.58 cm2 MV VTI (test code = 8487963635) 21.2 cm MV max evette (test code = 8659720260) 1.31 cm/s IVSd 2D (test code = 3310803) 9.82 cm LV stroke vol index (test code = 98180152) 36.78 ml/m2 LV LVIDd index (test code = 52891038) 24.34 mm/m2 LVIDs index (test code = 54448103) 22.40 mm/m2 LV ESV index A2C (test code = 3961857635) 18.38 ml/m2 LV EDV index BP (test code = 6648620064) 51.90 mL/m2 LV ESV index A4C (test code = 7357852415) 32.85 ml/m2 LV EDV index A2C (test code = 9383011534) LV EDV index A4C (test code = 5884946632) 64.98 ml/m2 LV ESV index 2D (test code = 6910001838) 47.68 ml/m2 LV EDV index 2D (test code = 1916376979) 57.88 ml/m2 LV RWT 2D (test code = 8795013498) LV mass 2D (test code = 7060864888) 170.69 g LV mass index 2D (test code = 3106303848) 82.78 g/m2 LA diam systole Index (test code = 4565695148) 20.85 mm/m2 AV area index (test code = 0868340265) 1.50 cm2/m2 LV stroke vol index (test code = 3346750937) 36.78 mL/m2 AVAI (Vmax) BSA (test code = 2271392559) 1.40 cm2/m2 MV avg E/e' (test code = 9566370017) AV evette ratio (test code = 2746423434) LV mass size 1 (test code = 4032793603) 170.7 cm LV biplane EF (test code = 67419-1) 49.6 % LV SI (BP) (test code = 0540667190) 25.72 ml/m2 LV SV (BP) (test code = 4667545733) 53.03 ml LV ESV BP (test code = 8726415454) 53.98 mL LV ESV index BP (test code = 7768133780) 26.18 mL/m2 Ao Root diam diastole (test code = 9242829817) 32 mm Sinus of Valsalva (test code = 4088021464) 32 mm Radiology Study observation (narrative) (test code = 76656-3) LYNDSAY (test code = LYNDSAY) [facility] EpicGLUCOSE BEDSIDE [id number] 16:19:00* Test Item Value Reference Range Interpretation Comme nts GLUCOSE BEDSIDE TESTING (raisa t code = GLUBED) 105 mg/dL 70-110 N CSF [id number] 12:22:00* Test Item Value Reference Range Interpretation Comme nts CSF COLOR (test code = COLCSF) COLORLESS DESCRIP. COLORLESS CSF TUBE # (test code = TUBECSF) #1 Tube# Tube Used CSF GLUCOSE (test code = GLUCSF) 49 MG/DL 40-75 N CSF TOTAL PROTEIN (test code = PROTCSF) 70 MG/DL 15-45 HH RESULTS CALLED T O SHURANREAD BACK & CONFIRMED? YBY [id number] 10/24/24 1209 GLUCOSE BEDSIDE [id number] 11:35:00* Test Item Value Reference Range Interpretation Comme nts GLUCOSE BEDSIDE TESTING (raisa t code = GLUBED) 139 mg/dL 70-110 H GLUCOSE BEDSIDE [id number] 07:58:00* Test Item Value Reference Range Interpretation Comme nts GLUCOSE BEDSIDE TESTING (raisa t code = GLUBED) 81 mg/dL 70-110 N BASIC METABOLIC [id number] 04:35:00* Test Item Value Reference Range Interpretation [...] CA) 8.4 MG/DL 8.5-10.1 L CBC W/AUTO [id number] 04:24:00* Test Item Value Reference Range Interpretation [...] NRBC#) 0.0 K/mm3 0.0-0.1 N GLUCOSE BEDSIDE [id number] 20:41:00* Test Item Value Reference Range Interpretation Comme nts GLUCOSE BEDSIDE TESTING (raisa t code = GLUBED) 119 mg/dL 70-110 H GLUCOSE BEDSIDE [id number] 16:15:00* Test Item Value Reference Range Interpretation Comme nts GLUCOSE BEDSIDE TESTING (raisa t code = GLUBED) 107 mg/dL 70-110 N GLUCOSE BEDSIDE [id number] 11:32:00* Test Item Value Reference Range Interpretation Comme nts GLUCOSE BEDSIDE TESTING (raisa t code = GLUBED) 114 mg/dL 70-110 H GLUCOSE BEDSIDE [id number] 07:57:00* Test Item Value Reference Range Interpretation Comme nts GLUCOSE BEDSIDE TESTING (raisa t code = GLUBED) 83 mg/dL 70-110 N COMPREHENSIVE METABOLIC [id number] 05:08:00* Test Item Value Reference Range Interpretation [...] code = ALKP) 86 Unit/L 50-136 N [id number] 05:08:00* Test Item Value Reference Range Interpretation Comme nts PHOSPHOROUS (test code = PHOS) 4.8 MG/DL 2.5-4.9 N [id number] 05:08:00* Test Item Value Reference Range Interpretation Comme nts MAGNESIUM (test code = MAG) 1.9 MG/DL 1.8-2.4 N [id number] 04:46:00* Test Item Value Reference Range Interpretation Comme nts AMMONIA (test code = AMM) 11 mcMOL/L 11-32 N CBC W/AUTO [id number] 04:38:00* Test Item Value Reference Range Interpretation [...] NRBC#) 0.0 K/mm3 0.0-0.1 N GLUCOSE BEDSIDE [id number] 20:44:00* Test Item Value Reference Range Interpretation Comme nts GLUCOSE BEDSIDE TESTING (raisa t code = GLUBED) 123 mg/dL 70-110 H GLUCOSE BEDSIDE [id number] 17:06:00* Test Item Value Reference Range Interpretation Comme nts GLUCOSE BEDSIDE TESTING (raisa t code = GLUBED) 121 mg/dL 70-110 H GLUCOSE BEDSIDE [id number] 12:17:00* Test Item Value Reference Range Interpretation Comme nts GLUCOSE BEDSIDE TESTING (raisa t code = GLUBED) 101 mg/dL 70-110 N GLUCOSE BEDSIDE [id number] 08:41:00* Test Item Value Reference Range Interpretation Comme nts GLUCOSE BEDSIDE TESTING (raisa t code = GLUBED) 100 mg/dL 70-110 N BASIC METABOLIC [id number] 05:31:00* Test Item Value Reference Range Interpretation [...] code = CA) 9.4 MG/DL 8.5-10.1 N [id number] 05:31:00* Test Item Value Reference Range Interpretation Comme nts PHOSPHOROUS (test code = PHOS) 4.8 MG/DL 2.5-4.9 N [id number] 05:31:00* Test Item Value Reference Range Interpretation Comme nts MAGNESIUM (test code = MAG) 1.9 MG/DL 1.8-2.4 N CBC W/AUTO [id number] 05:05:00* Test Item Value Reference Range Interpretation [...] NRBC#) 0.0 K/mm3 0.0-0.1 N GLUCOSE BEDSIDE [id number] 21:22:00* Test Item Value Reference Range Interpretation Comme nts GLUCOSE BEDSIDE TESTING (raisa t code = GLUBED) 122 mg/dL 70-110 H GLUCOSE BEDSIDE [id number] 17:33:00* Test Item Value Reference Range Interpretation Comme nts GLUCOSE BEDSIDE TESTING (raisa t code = GLUBED) 99 mg/dL 70-110 N GLUCOSE BEDSIDE [id number] 13:43:00* Test Item Value Reference Range Interpretation Comme nts GLUCOSE BEDSIDE TESTING (raisa t code = GLUBED) 97 mg/dL 70-110 N GLUCOSE BEDSIDE [id number] 08:43:00* Test Item Value Reference Range Interpretation Comme nts GLUCOSE BEDSIDE TESTING (raisa t code = GLUBED) 110 mg/dL 70-110 N CBC W/AUTO [id number] 00:53:00* Test Item Value Reference Range Interpretation [...] NRBC#) 0.0 K/mm3 0.0-0.1 N BASIC METABOLIC [id number] 00:39:00* Test Item Value Reference Range Interpretation [...] code = CA) 8.7 MG/DL 8.5-10.1 N [id number] 00:39:00* Test Item Value Reference Range Interpretation Comme nts PHOSPHOROUS (test code = PHOS) 4.4 MG/DL 2.5-4.9 N [id number] 00:39:00* Test Item Value Reference Range Interpretation Comme nts MAGNESIUM (test code = MAG) 2.0 MG/DL 1.8-2.4 N GLUCOSE BEDSIDE [id number] 20:54:00* Test Item Value Reference Range Interpretation Comme nts GLUCOSE BEDSIDE TESTING (raisa t code = GLUBED) 89 mg/dL 70-110 N GLUCOSE BEDSIDE [id number] 17:01:00* Test Item Value Reference Range Interpretation Comme nts GLUCOSE BEDSIDE TESTING (raisa t code = GLUBED) 84 mg/dL 70-110 N DILANTIN (PHENYTOIN)2024-10-20 13:06:00* Test Item Value Reference Range Interpretation Comme nts DILANTIN (PHENYTOIN) (test c ode = DIL) 13.3 mcG/ML 10.0-20.0 N CBC W/AUTO [id number] 12:33:00* Test Item Value Reference Range Interpretation [...] NRBC#) 0.0 K/mm3 0.0-0.1 N GLUCOSE BEDSIDE [id number] 12:19:00* Test Item Value Reference Range Interpretation Comme nts GLUCOSE BEDSIDE TESTING (raisa t code = GLUBED) 121 mg/dL 70-110 H PERIPHERAL BLOOD [id number] 11:32:00* Test Item Value Reference Range Interpretation Comme nts PERIPHERAL BLOOD SMEAR (test code = PBS) RUN DATE: 10/20/24 [facility] - LAB PAGE 1 RUN TIME: 1132 Specimen Inquiry RUN USER: INTERFACE PAVEL ENT: HEATHER TURNER LOC: [place] U #: [id number] AGE/SX: 54/F ROOM: RE10/17/24REG DR: Gus Santamaria MD : 74 BED: DIS: STATUS: VIRI CRUZ TLOC: SPEC #: [id number] RECD: 10/18/24 STATUS: ALLIE NEGRETE #: [id number] WALDO: 10/17/24 [facility] DR: Gus Santamaria MD ENTERED: 10/18/24 SP TYPE: PBS OTHR DR: Alanis Provider ORDERED: [id number], ANATOMIC SPEC HISTOLOGY: TISSUE ID BLK PCS [...] 10/20/24 1132 END OF REPORT GLUCOSE BEDSIDE [id number] 11:27:00* Test Item Value Reference Range Interpretation Comme nts GLUCOSE BEDSIDE TESTING (raisa t code = GLUBED) 85 mg/dL 70-110 N GLUCOSE BEDSIDE [id number] 07:54:00* Test Item Value Reference Range Interpretation Comme nts GLUCOSE BEDSIDE TESTING (raisa t code = GLUBED) 77 mg/dL 70-110 N GLUCOSE BEDSIDE [id number] 22:01:00* Test Item Value Reference Range Interpretation Comme nts GLUCOSE BEDSIDE TESTING (raisa t code = GLUBED) 95 mg/dL 70-110 N GLUCOSE BEDSIDE [id number] 12:57:00* Test Item Value Reference Range Interpretation Comme nts GLUCOSE BEDSIDE TESTING (raisa t code = GLUBED) 99 mg/dL 70-110 N GLUCOSE BEDSIDE [id number] 12:05:00* Test Item Value Reference Range Interpretation Comme nts GLUCOSE BEDSIDE TESTING (raisa t code = GLUBED) 98 mg/dL 70-110 N GLUCOSE BEDSIDE [id number] 08:26:00* Test Item Value Reference Range Interpretation Comme nts GLUCOSE BEDSIDE TESTING (raisa t code = GLUBED) 76 mg/dL 70-110 N CBC W/AUTO [id number] 06:29:00* Test Item Value Reference Range Interpretation [...] ode = MDIFF) YES DIFF/SCN CRITERIA WBC [id number] 06:29:00* Test Item Value Reference Range Interpretation [...] (test code = PLTMORPH) NORMAL COMPREHENSIVE METABOLIC [id number] 05:19:00* Test Item Value Reference Range Interpretation [...] ALKP) 70 Unit/L 50-136 N GLUCOSE BEDSIDE [id number] 20:46:00* Test Item Value Reference Range Interpretation Comme nts GLUCOSE BEDSIDE TESTING (raisa t code = GLUBED) 164 mg/dL 70-110 H GLUCOSE BEDSIDE [id number] 16:16:00* Test Item Value Reference Range Interpretation Comme nts GLUCOSE BEDSIDE TESTING (raisa t code = GLUBED) 114 mg/dL 70-110 H GLUCOSE BEDSIDE [id number] 09:40:00* Test Item Value Reference Range Interpretation Comme nts GLUCOSE BEDSIDE TESTING (raisa t code = GLUBED) 91 mg/dL 70-110 N CBC W/AUTO [id number] 06:23:00* Test Item Value Reference Range Interpretation [...] ode = MDIFF) YES DIFF/SCN CRITERIA WBC [id number] 06:23:00* Test Item Value Reference Range Interpretation [...] MORPHOLOGY (test code = PLTMORPH) NORMAL LACTIC [id number] 05:16:00* Test Item Value Reference Range Interpretation Comme nts LACTIC ACID (test code = LACT) 1.1 mmol/L 0.4-1.9 N BASIC METABOLIC [id number] 05:08:00* Test Item Value Reference Range Interpretation [...] = CA) 7.4 MG/DL 8.5-10.1 L LACTIC [id number] 23:48:00* Test Item Value Reference Range Interpretation Comme nts LACTIC ACID (test code = LACT) 2.70 mmol/L 0.5-2.0 HH Critical Value r eported toFirst Name:GURU Last Name:KELLIE READ BACK AND VERIFIEDby [id number], on 10/17/24, @ 5871. COVID 19 INHOUSE [id number] 20:41:00* Test Item Value Reference Range Interpretation Comme nts COVID 19 INHOUSE AG (test co de = [id number]) NEGATIVE NEGATIVE CBC W/MANUAL [id number] 20:37:00* Test Item Value Reference Range Interpretation [...] BLAST) 5 % 0-0 H B-TYPE NATRIURETIC [id number] 20:36:00* Test Item Value Reference Range Interpretation Comme nts B-TYPE NATRIURETIC PEPTIDE ( test code = BNP) 44 pg/mL <100 N LACTIC [id number] 20:19:00* Test Item Value Reference Range Interpretation Comme nts LACTIC ACID (test code = LACT) 3.10 mmol/L 0.5-2.0 HH Critical Value r eported toFirst Name:ANDREA Last Name:ENLOERESULTS READ BACK AND VERIFIEDby MARTHA, on 10/17/24, @ 2019. BASIC METABOLIC [id number] 20:18:00* Test Item Value Reference Range Interpretation [...] CA) 8.9 mg/dL 8.7-10.4 N LIVER FUNCTION [id number] 20:18:00* Test Item Value Reference Range Interpretation [...] mcg/mL 50.0-100.0 N Critical Value reported toFirst Name:BRIDGETTLast Name:ENLOERESULTS READ BACK AND VERIFIEDby MARTHA on 10/17/24, @ 2017.Please note: New Reference Range Aug 2020 [id number] 20:18:00* Test Item Value Reference Range Interpretation Comme nts ALCOHOL (test code = ALC) < 3 mg/dL 0-400 N [id number] 20:16:00* Test Item Value Reference Range Interpretation Comme nts TROPONIN-I (test code = TROPI) 7.5 pg/mL 27.36-66.23 L CBC W/AUTO [id number] 20:08:00* Test Item Value Reference Range Interpretation [...] code = EO#) x10 3/uL 0.00-0.45 POC [id number] 05:35:24* Test Item Value Reference Range Interpretation Comme nts POC Glu (test code = 2649860208) 113 mg/dL 70-99 H POC Performing Location (raisa t code = 7670174601) H1 ER Lab Interpretation (test cod e = 07031-3) [facility]-Wmj6214-18-15 02:35:03* Test Item Value Reference Range Interpretation Comme nts NT-proBNP (test code = 25204-1) 2090 pg/mL <=125 H LYNDSAY (test code = LYNDSAY) Positive: Heart Failure Likely Lab Interpretation (test code = 70772-4) Abnormal [facility] Metabolic Panel (NA, K, CL, CO2, GLUCOSE, BUN, CREATININE, CA)2024-04-03 02:26:01* Test Item Value Reference Range Interpretation Comme nts NA (test code = 3441503858) 136 mmol/L 135-145 K (test code = 8567211668) 3.2 mmol/L 3.5-5.0 L CL (test code = 0027193215) 101 mmol/L 98-108 CO2 TOTAL (test code = 6726142365) 23 mmol/L 23-31 AGAP (test code = 6818932763) 12 2-16 BUN (test code = 9172671128) 4 mg/dL 7-23 L GLUCOSE (test code = 5820632691) 165 mg/dL 70-110 H CREATININE (test code = 2160-0) 0.67 mg/dL 0.50-1.04 CALCIUM (test code = 1612756958) 8.5 mg/dL 8.6-10.6 L eGFR (test code = 88726-6) 105.3 mL/min/1.73m2 CKD-EPI eGFR (2020). Assuming creatinine has been stable day-to-day for at least three months, the eGFR indicates Category G1 (>= 90 mL/min/1.73 m2) Lab Interpretation (test code = 40621-0) Abnormal [facility] with [id number] 02:19:04* Test Item Value Reference Range Interpretation [...] g/dL 31.6-35.1 L RDW-SD (test code = 64077-6) 53.9 fL 39.0-49.9 H RDW-CV (test code = 788-0) 18.2 % 12.0-15.5 H PLT (test code = 777-3) 458 166-358 H MPV (test code = 64417-5) 8.6 fL 9.5-12.9 L NRBC/100 WBC (test code = 7996642027) 0.0 0.0-10.0 NRBC x10^3 (test code = 7348481038) See_Comment [Automated messa ge] The system which generated this result transmitted reference range: 10*3/?L. The reference range was not used to interpret this result as normal/abnormal. GRAN MAT (NEUT) % (test code = 770-8) 62.8 % IMM GRAN % (test code = 8016916063) 0.40 % LYMPH % (test code = 736-9) 28.0 % MONO % (test code = 5905-5) 6.5 % EOS % (test code = 713-8) 1.3 % BASO % (test code = 706-2) 1.0 % GRAN MAT x10^3(ANC) (test code = 8709099775) 4.36 10*3/uL 1.88-7.09 IMM GRAN x10^3 (test code = 8012017224) 0.03 10*3/uL 0.00-0.06 LYMPH x10^3 (test code = 731-0) 1.94 10*3/uL 1.32-3.29 MONO x10^3 (test code = 742-7) 0.45 10*3/uL 0.33-0.92 EOS x10^3 (test code = 711-2) 0.09 10*3/uL 0.03-0.39 BASO x10^3 (test code = 704-7) 0.07 10*3/uL 0.01-0.07 Lab Interpretation (test code = 93202-1) [facility] [id number] 02:05:20* Test Item Value Reference Range Interpretation Comme nts LACTIC ACID (test code = 9313925697) 2.61 mmol/L 0.50-2.20 H Lab Interpretation (test cod e = 58857-6) [facility] [id number] 04:25:23* Test Item Value Reference Range Interpretation Comme nts TROPONIN I (test code = 7635213881) 0.004 ng/mL <=0.034 LYNDSAY (test code = [...] of biotin. Lab Interpretation (test code = 88435-1) [facility] Metabolic Panel (62982)2024-01-13 04:13:41* Test Item Value Reference Range Interpretation Comme nts NA (test code = 4430037013) 140 mmol/L 135-145 K (test code = 1109663955) 3.7 mmol/L 3.5-5.0 CL (test code = 2748396486) 103 mmol/L 98-108 CO2 TOTAL (test code = 6825724325) 25 mmol/L 23-31 AGAP (test code = 7438800346) 12 2-16 BUN (test code = 3549669137) 12 mg/dL 7-23 GLUCOSE (test code = 9656683253) 143 mg/dL 70-110 H CREATININE (test code = 2160-0) 0.91 mg/dL 0.50-1.04 TOTAL BILI (test code = 4857599178) 0.4 mg/dL 0.1-1.1 CALCIUM (test code = 1963777685) 9.0 mg/dL 8.6-10.6 T PROTEIN (test code = 4237058133) 7.7 g/dL 6.3-8.2 ALBUMIN (test code = 5700394003) 4.2 g/dL 3.5-5.0 ALK PHOS (test code = 2769575799) 93 U/L 34-122 ALTv (test code = 1742-6) 9 U/L 5-35 AST(SGOT) (test code = 3045887852) 18 U/L 13-40 eGFR (test code = 76796-8) 76.5 mL/min/1.73m2 CKD-EPI eGFR (2020). Assuming creatinine has been stable day-to-day for at least three months, the eGFR indicates Category G2 (60 - 89 mL/min/1.73 m2) Lab Interpretation (test code = 68687-1) Abnormal [facility] with Wqra8048-79-23 03:58:19* Test Item Value Reference Range Interpretation [...] g/dL 31.6-35.1 L RDW-SD (test code = 10670-9) 59.0 fL 39.0-49.9 H RDW-CV (test code = 788-0) 18.7 % 12.0-15.5 H PLT (test code = 777-3) 394 166-358 H MPV (test code = 59791-2) 8.5 fL 9.5-12.9 L NRBC/100 WBC (test code = 6639830960) 0.0 0.0-10.0 NRBC x10^3 (test code = 5687273627) See_Comment [Automated messa ge] The system which generated this result transmitted reference range: 10*3/?L. The reference range was not used to interpret this result as normal/abnormal. GRAN MAT (NEUT) % (test code = 770-8) 60.6 % IMM GRAN % (test code = 1656924448) 1.40 % LYMPH % (test code = 736-9) 26.9 % MONO % (test code = 5905-5) 8.7 % EOS % (test code = 713-8) 1.8 % BASO % (test code = 706-2) 0.6 % GRAN MAT x10^3(ANC) (test code = 4420601303) 5.14 10*3/uL 1.88-7.09 IMM GRAN x10^3 (test code = 3461158794) 0.12 10*3/uL 0.00-0.06 H LYMPH x10^3 (test code = 731-0) 2.28 10*3/uL 1.32-3.29 MONO x10^3 (test code = 742-7) 0.74 10*3/uL 0.33-0.92 EOS x10^3 (test code = 711-2) 0.15 10*3/uL 0.03-0.39 BASO x10^3 (test code = 704-7) 0.05 10*3/uL 0.01-0.07 Lab Interpretation (test code = 65721-0) [facility]normal [facility] ([facility])2024-01-10 16:40:03* Test Item Value Reference Range Interpretation Comme nts Height (test code = 9937029030) 62 in Weight (test code = 3819472912) 200 lbs Systolic BP (test code = 0313392175) 90 mmHg Diastolic BP (test code = 6816821861) 66 mmHg Heart Rate (test code = 3080708544) 69 bpm BSA (test code = 6560744729) 1.91 m2 LVOT diameter (test code = 9761358591) 2.13 cm LVOT area (test code = 6998581555) 3.60 cm2 LA size (test code = 3533995917) 3.5 cm LAV(MOD-sp4) (test code = 9450068164) 55.70 mL E wave decelartion time (test code = 5185930636) 0.12 s MV stenosis pressure 1/2 time (test code = 8017544073) 35.0 ms MV Peak A Evette (test code = 6369277337) 117.0 cm/s MV Peak E Evette (test code = 7421198388) 94.3 cm/s E/A ratio (test code = 8281035294) 0.81 ratio MV E/e' septal (test code = 9815819501) 10.2 cm/s LVOT stroke volume (test code = 0425591053) 59.50 cm3 LVOT peak evette (test code = 9394919488) 99.8 cm/s LVOT mn grad (test code = 0035609644) 1.9 mmHg AV LVOT peak gradient (test code = 0203428695) 4.0 mmHg LVOT peak VTI (test code = 7100428737) 16.7 cm LV V1 mean (test code = 0990272044) 64.40 cm/s Aortic valve mean velocity (test code = 0188488968) 155.3 cm/s Ao peak evette (test code = 7977826746) 222.6 cm/s Ao VTI (test code = 1901406096) 33.6 cm AV area by cont VTI (test code = 4176056128) 1.8 cm2 AV area peak evette (test code = 5087318052) 1.6 cm2 Ao max PG (test code = 3431400890) 19.80 mm[Hg] AV peak gradient (test code = 3828026474) 19.8 mmHg AV valve area (test code = 0692230225) 1.77 cm2 AV mean gradient (test code = 6519379734) 10.6 mmHg AV regurgitation pressure 1/2 time (test code = 4907170246) 651.6 ms AI dec slope (test code = 1948713110) 180.60 cm/s2 AI max evette (test code = 3025617862) 401.80 cm/s AI max PG (test code = 5251738575) 64.60 mm[Hg] LVIDD (test code = 0562278371) 4.90 cm Left Ventricular End Diastolic Volume by Teichholz Method (test code = 6966966) 114.6 mL IVS (test code = 2864349639) 1.17 cm Interventricular Septum Diastolic Thickness by 2D (test code = 5332125) 1.17 cm LVPWD (test code = 8103145464) 1.17 cm PW (test code = 2497756628) 1.17 cm 0.6-1.1 EF(Teich) (test code = 7413311805) 20.70 % LVIDS (test code = 3944439988) 4.50 cm Left Ventricular End Systolic Volume by Teichholz Method (test code = 7132203) 90.9 mL FS (test code = 4889484603) 9 % EF - 2D (test code = 53283274) 20.70 % Radiology Study observation (narrative) (test code = 11697-9) LYNDSAY (test code = LYNDSAY) ?Left?Ventricle: Left [...] mL of Optison ultrasound enhancing agent used. [facility] Sdwzf4384-33-11 02:02:28* Test Item Value Reference Range Interpretation Comme nts LACTIC ACID (test code = 5223329521) 1.36 mmol/L 0.50-2.20 Lab Interpretation (test cod e = 23160-5) Normal [facility] CenterCT [facility] PULMONARY LUWTYQURC7214-18-25 01:16:45CTA CHEST WITH IV CONTRAST ORDERING PHYSICIAN: [...] adenoma. ACDF hardware in the lower cervical spine.[facility] CenterXR CHEST 1 [id number] 23:07:58Exam: Chest (1 View), 01/09/2024 4:15 PM. Ordering Physician: OLENA DOYLE. History: Chest Pain. Technique: One view of the chest. Comparison: 12/14/2023. Findings: Cardiac silhouette is mildly enlarged. There is no pneumothorax. There isno consolidation or pleural effusion. Pleural and diaphragmatic contoursare normal. Calcified granuloma is seen in the left upper lobe. Changes ofanterior cervical discectomy and fusion are seen.[facility] CenterTROPONIN [id number] 22:51:19* Test Item Value Reference Range Interpretation Comme nts TROPONIN I (test code = 8620603384) 0.006 ng/mL <=0.034 LYNDSAY (test code = [...] of biotin. Lab Interpretation (test code = 74990-7) Normal [facility] CenterN-TERMINAL MDG-[id number] 22:48:38* Test Item Value Reference Range Interpretation Comme nts NT-proBNP (test code = 39030-4) 877 pg/mL <=125 LYNDSAY (test code = LYNDSAY) Result Indeterminate-Consid er causes of NT-proBNP elevation other than Heart failure such as acute coronary syndrome, pulmonary embolism, pulmonary hypertension, sepsis, stroke, and renal dysfunction. Lab Interpretation (test code = 57337-8) Abnormal [facility] CenterCOM. METABOLIC PANEL (64698)2024-01-09 22:42:20* Test Item Value Reference Range Interpretation Comme nts NA (test code = 8961371265) 137 mmol/L 135-145 K (test code = 3338510684) 3.8 mmol/L 3.5-5.0 CL (test code = 2458375752) 104 mmol/L 98-108 CO2 TOTAL (test code = 9738343369) 25 mmol/L 23-31 AGAP (test code = 5016322477) 8 2-16 BUN (test code = 7710666686) 7 mg/dL 7-23 GLUCOSE (test code = 0408537558) 96 mg/dL 70-110 CREATININE (test code = 2160-0) 0.60 mg/dL 0.50-1.04 TOTAL BILI (test code = 0972634991) 0.4 mg/dL 0.1-1.1 CALCIUM (test code = 3897801274) 8.7 mg/dL 8.6-10.6 T PROTEIN (test code = 9852663291) 7.0 g/dL 6.3-8.2 ALBUMIN (test code = 0568207233) 3.9 g/dL 3.5-5.0 ALK PHOS (test code = 8329655955) 101 U/L 34-122 ALTv (test code = 1742-6) 7 U/L 5-35 AST(SGOT) (test code = 6477846615) 20 U/L 13-40 eGFR (test code = 93609-5) 108.8 mL/min/1.73m2 CKD-EPI eGFR (20 21). Assuming creatinine has been stable day-to-day for at least three months, the eGFR indicates Category G1 (>= 90 mL/min/1.73 m2) [facility] CenterD-KYLTC7096-50-77 22:28:57* Test Item Value Reference Range Interpretation Comments D-DIMER (test code = 9562469502) 0.87 See_Comment H [Automated message] The system [...] a diagnosis. Lab Interpretation (test code = 95323-0) Abnormal [facility] WITH [id number] 22:09:01* Test Item Value Reference Range Interpretation [...] g/dL 31.6-35.1 L RDW-SD (test code = 94167-8) 58.1 fL 39.0-49.9 H RDW-CV (test code = 788-0) 18.6 % 12.0-15.5 H PLT (test code = 777-3) 312 166-358 MPV (test code = 20250-0) 8.3 fL 9.5-12.9 L NRBC/100 WBC (test code = 0098372970) 0.0 0.0-10.0 NRBC x10^3 (test code = 2995509228) See_Comment [Automated messa ge] The system which generated this result transmitted reference range: 10*3/?L. The reference range was not used to interpret this result as normal/abnormal. GRAN MAT (NEUT) % (test code = 770-8) 60.1 % IMM GRAN % (test code = 6299483301) 0.70 % LYMPH % (test code = 736-9) 27.3 % MONO % (test code = 5905-5) 10.1 % EOS % (test code = 713-8) 1.2 % BASO % (test code = 706-2) 0.6 % GRAN MAT x10^3(ANC) (test code = 4955393422) 5.12 10*3/uL 1.88-7.09 IMM GRAN x10^3 (test code = 6902607517) 0.06 10*3/uL 0.00-0.06 LYMPH x10^3 (test code = 731-0) 2.33 10*3/uL 1.32-3.29 MONO x10^3 (test code = 742-7) 0.86 10*3/uL 0.33-0.92 EOS x10^3 (test code = 711-2) 0.10 10*3/uL 0.03-0.39 BASO x10^3 (test code = 704-7) 0.05 10*3/uL 0.01-0.07 Lab Interpretation (test code = 22637-0) Abnormal [facility] GLUCOSE (AUTOMATED)2023-12-15 12:45:21* Test Item Value Reference Range Interpretation Comme nts POCT GLU (test code = 9554101928) 144 mg/dL 70-110 H Lab Interpretation (test cod e = 34876-3) Abnormal [facility] CenterThyroid Stimulating Yyulxwe0126-62-17 01:46:59 * Test Item Value Reference Range Interpretation Comme nts TSH (test code = 5091806490) 1.14 0.45-4.70 Lab Interpretation (test cod e = 97970-6) Normal [facility] CenterFR [id number] 01:33:00* Test Item Value Reference Range Interpretation Comme nts FREE T3 (test code = 7881966020) 3.68 pg/mL 2.77-5.27 Lab Interpretation (test cod e = 42857-4) Normal [facility] GLUCOSE (AUTOMATED)2023-12-15 00:57:48* Test Item Value Reference Range Interpretation Comme nts POCT GLU (test code = 8167109323) 131 mg/dL 70-110 H Lab Interpretation (test cod e = 88614-7) Abnormal [facility] CenterTroponin [id number] 21:45:52* Test Item Value Reference Range Interpretation Comme nts TROPONIN I (test code = 0265938511) 0.009 ng/mL <=0.034 LYNDSAY (test code = [...] of biotin. Lab Interpretation (test code = 75840-7) Normal [facility]. Metabolic Panel (40948)2023-12-14 20:19:49* Test Item Value Reference Range Interpretation Comme nts NA (test code = 2707244816) 138 mmol/L 135-145 K (test code = 8256939950) 3.5 mmol/L 3.5-5.0 CL (test code = 4634717955) 108 mmol/L 98-108 CO2 TOTAL (test code = 0196602869) 24 mmol/L 23-31 AGAP (test code = 9013665299) 6 2-16 BUN (test code = 7802841793) 7 mg/dL 7-23 GLUCOSE (test code = 0439983019) 96 mg/dL 70-110 CREATININE (test code = 2160-0) 0.51 mg/dL 0.50-1.04 TOTAL BILI (test code = 4617015135) 0.4 mg/dL 0.1-1.1 CALCIUM (test code = 3220587548) 8.6 mg/dL 8.6-10.6 T PROTEIN (test code = 5239499434) 6.8 g/dL 6.3-8.2 ALBUMIN (test code = 0309222871) 3.8 g/dL 3.5-5.0 ALK PHOS (test code = 8518050798) 107 U/L 34-122 ALTv (test code = 1742-6) 13 U/L 5-35 AST(SGOT) (test code = 8973857141) 28 U/L 13-40 eGFR (test code = 28582-0) 113.2 mL/min/1.73m2 CKD-EPI eGFR (20 21). Assuming creatinine has been stable day-to-day for at least three months, the eGFR indicates Category G1 (>= 90 mL/min/1.73 m2) [facility] [id number] 20:15:27* Test Item Value Reference Range Interpretation Comme nts TROPONIN I (test code = 0733591989) 0.009 ng/mL <=0.034 LYNDSAY (test code = [...] of biotin. Lab Interpretation (test code = 12913-8) Normal [facility] CenterN-Terminal Ays-Enm7985-90-27 20:12:51* Test Item Value Reference Range Interpretation Comme nts NT-proBNP (test code = 80334-2) 2250 pg/mL <=125 H LYNDSAY (test code = LYNDSAY) Positive: Heart Failure Likely Lab Interpretation (test code = 58013-4) [facility]normal [facility]XR [facility] 1 [id number] 20:00:17EXAM: XR CHEST 1 VW COMPARISON: 12/02/2023 HISTORY: 53 years-old Female; shortness of breath FINDINGS: Lungs: The lung volumes are normal. Left upper lung calcified granuloma. Nofocal opacities. No pneumothorax. No pleural effusion. Heart/Mediastinum: The cardiac silhouette appears normal. Bones andsoft tissues: No acute osseous findings are detected.Redemonstrated ACDF projecting over the lower cervical spine.[facility] CenterD-Kemby9558-29-44 19:45:05* Test Item Value Reference Range Interpretation Comments D-DIMER (test code = 1065749288) 1.33 See_Comment H [Automated message] The system [...] a diagnosis. Lab Interpretation (test code = 71658-1) Abnormal [facility] CenterCbc with Kipq3531-50-00 19:39:29* Test Item Value Reference Range Interpretation [...] g/dL 31.6-35.1 L RDW-SD (test code = 76517-7) 70.2 fL 39.0-49.9 H RDW-CV (test code = 788-0) 21.6 % 12.0-15.5 H PLT (test code = 777-3) 259 166-358 MPV (test code = 60706-9) 8.7 fL 9.5-12.9 L NRBC/100 WBC (test code = 0556119700) 0.0 0.0-10.0 NRBC x10^3 (test code = 6187490343) See_Comment [Automated messa ge] The system which generated this result transmitted reference range: 10*3/?L. The reference range was not used to interpret this result as normal/abnormal. GRAN MAT (NEUT) % (test code = 770-8) 57.7 % IMM GRAN % (test code = 7764868377) 0.40 % LYMPH % (test code = 736-9) 30.2 % MONO % (test code = 5905-5) 9.9 % EOS % (test code = 713-8) 0.8 % BASO % (test code = 706-2) 1.0 % GRAN MAT x10^3(ANC) (test code = 3655218267) 4.17 10*3/uL 1.88-7.09 IMM GRAN x10^3 (test code = 9256583909) 0.03 10*3/uL 0.00-0.06 LYMPH x10^3 (test code = 731-0) 2.19 10*3/uL 1.32-3.29 MONO x10^3 (test code = 742-7) 0.72 10*3/uL 0.33-0.92 EOS x10^3 (test code = 711-2) 0.06 10*3/uL 0.03-0.39 BASO x10^3 (test code = 704-7) 0.07 10*3/uL 0.01-0.07 Lab Interpretation (test code = 24601-8) Abnormal [facility] GLUCOSE (AUTOMATED)2023-12-03 21:30:58* Test Item Value Reference Range Interpretation Comme [facility] POCT GLU (test code = 1213599211) 102 mg/dL 70-110 Lab Interpretation (test cod e = 09443-7) Normal [facility] Metabolic Panel (NA, K, CL, CO2, GLUCOSE, BUN, CREATININE, CA)2023-12-03 18:22:31* Test Item Value Reference Range Interpretation Comme nts NA (test code = 2171607886) 135 mmol/L 135-145 K (test code = 7742208173) 3.9 mmol/L 3.5-5.0 CL (test code = 8531545110) 103 mmol/L 98-108 CO2 TOTAL (test code = 7038225874) 29 mmol/L 23-31 AGAP (test code = 2605859577) 3 2-16 BUN (test code = 9366520284) 12 mg/dL 7-23 GLUCOSE (test code = 9943689777) 85 mg/dL 70-110 CREATININE (test code = 2160-0) 0.63 mg/dL 0.50-1.04 CALCIUM (test code = 4557720364) 8.7 mg/dL 8.6-10.6 eGFR (test code = 46538-1) 107.6 mL/min/1.73m2 CKD-EPI eGFR (20 21). Assuming creatinine has been stable day-to-day for at least three months, the eGFR indicates Category G1 (>= 90 mL/min/1.73 m2) [facility] GLUCOSE (AUTOMATED)2023-12-03 16:52:56* Test Item Value Reference Range Interpretation Comme nts POCT GLU (test code = 5184231194) 98 mg/dL 70-110 Lab Interpretation (test cod e = 96435-1) Normal [facility])2023-12-03 13:01:11* Test Item Value Reference Range Interpretation Comme [facility] POCT GLU (test code = 1177035893) 102 mg/dL 70-110 Lab Interpretation (test cod e = 86544-2) Normal [facility] CenterBasic Met[facility] Panel (NA, K, CL, CO2, GLUCOSE, BUN, CREATININE, CA)2023-12-03 10:22:08* Test Item Value Reference Range Interpretation Comme [facility] NA (test code = 7154807476) 138 mmol/L 135-145 K (test code = 3167900911) 3.2 mmol/L 3.5-5.0 L CL (test code = 2642039283) 105 mmol/L 98-108 CO2 TOTAL (test code = 5500327736) 26 mmol/L 23-31 AGAP (test code = 6230237355) 7 2-16 BUN (test code = 4179458214) 11 mg/dL 7-23 GLUCOSE (test code = 3372792966) 96 mg/dL 70-110 CREATININE (test code = 2160-0) 0.61 mg/dL 0.50-1.04 CALCIUM (test code = 4403758379) 8.6 mg/dL 8.6-10.6 eGFR (test code = 28928-3) 108.4 mL/min/1.73m2 CKD-EPI eGFR (2020). Assuming creatinine has been stable day-to-day for at least three months, the eGFR indicates Category G1 (>= 90 mL/min/1.73 m2) Lab Interpretation (test code = 26535-8) Abnormal [facility] CenterMagnesium2024-05-16 10:22:08* Test Item Value Reference Range Interpretation Comme [facility] MAGNESIUM (test code = 8566329735) 1.9 mg/dL 1.7-2.4 Lab Interpretation (test cod e = 20930-4) Normal [facility] CenterHepatic Function Panel (09046) (ALB,T.PRO,BILI T,BU/BC,ALT,AST,ALK PHOS)2023-12-03 10:22:08* Test Item Value Reference Range Interpretation Comme nts TOTAL BILI (test code = 3829476131) 0.5 mg/dL 0.1-1.1 BILI UNCON (test code = 1921384804) 0.2 mg/dL 0.1-1.1 BILI CONJ (test code = 9961081828) 0.0 mg/dL 0.0-0.3 T PROTEIN (test code = 5203243870) 6.7 g/dL 6.3-8.2 ALBUMIN (test code = 5228342455) 3.7 g/dL 3.5-5.0 ALK PHOS (test code = 9999757814) 135 U/L 34-122 H ALTv (test code = 1742-6) 26 U/L 5-35 AST(SGOT) (test code = 9906619857) 24 U/L 13-40 Lab Interpretation (test cod e = 12553-7) Abnormal [facility] CenterAC Panel 21 + Lactic Rczh2291-11-57 02:00:25* Test Item Value Reference Range Interpretation Comme nts PH (test code = 3002855767) 7.40 7.32-7.42 PCO2 NOEMI (test code = 7577881921) 40 41-51 L PO2 NOEMI (test code = 7997247268) 34 25-40 HCO3 NOEMI (test code = 3692123531) 24 24-28 AC VBE(BEAKER) (test code = 0129793035) -0.8 mEq/L THB NOEMI (test code = 0271934776) 9.3 g/dL 12.0-16.0 L %O2HB NOEMI (test code = 1997889236) 57.9 % 52.0-63.0 %COHB NOEMI (test code = 2037033585) 1.1 % 0.0-1.5 %METHB NOEMI (test code = 2742183256) 0.3 % 0.4-1.5 L VOL%O2 NOEMI (test code = 0399363805) 7.6 % 6.0-12.0 NA (test code = 6041100015) 139 mmol/L 135-145 K+ (test code = 0669408254) 3.5 mmol/L 3.5-5.0 AC CA IONZ (test code = 1763493374) 4.50 mg/dL 4.50-5.30 GLUCOSE (test code = 2185973761) 88 mg/dL 70-110 LACTIC ACID (test code = 1059288030) 1.63 mmol/L 0.50-2.20 QUES Lab Interpretation (test cod e = 26368-1) Abnormal [facility] CenterCT CHEST PULMONARY [id number] 19:47:28HISTORY: Chest pain, rule out P.E. 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 Lab Interpretation (test code = 26020-1) Normal [facility] CenterN-Terminal Krm-Ocl4298-28-15 19:37:29* Test Item Value Reference Range Interpretation Comme nts NT-proBNP (test code = 26010-0) 3420 pg/mL <=125 H LYNDSAY (test code = LYNDSAY) Positive: Heart Failure Likely Lab Interpretation (test code = 16318-5) Abnormal [facility] with Yfqr7503-92-45 19:28:47* Test Item Value Reference Range Interpretation [...] g/dL 31.6-35.1 L RDW-SD (test code = 77647-7) 68.9 fL 39.0-49.9 H RDW-CV (test code = 788-0) 22.6 % 12.0-15.5 H PLT (test code = 777-3) 379 166-358 H MPV (test code = 60210-1) 9.1 fL 9.5-12.9 L NRBC/100 WBC (test code = 7780243842) 0.0 0.0-10.0 NRBC x10^3 (test code = 4048266840) See_Comment [Automated messa ge] The system which generated this result transmitted reference range: 10*3/?L. The reference range was not used to interpret this result as normal/abnormal. GRAN MAT (NEUT) % (test code = 770-8) 73.5 % IMM GRAN % (test code = 2688323109) 1.70 % LYMPH % (test code = 736-9) 14.9 % MONO % (test code = 5905-5) 8.3 % EOS % (test code = 713-8) 1.2 % BASO % (test code = 706-2) 0.4 % GRAN MAT x10^3(ANC) (test code = 5895340225) 8.05 10*3/uL 1.88-7.09 H IMM GRAN x10^3 (test code = 9423502595) 0.19 10*3/uL 0.00-0.06 H LYMPH x10^3 (test code = 731-0) 1.63 10*3/uL 1.32-3.29 MONO x10^3 (test code = 742-7) 0.91 10*3/uL 0.33-0.92 EOS x10^3 (test code = 711-2) 0.13 10*3/uL 0.03-0.39 BASO x10^3 (test code = 704-7) 0.04 10*3/uL 0.01-0.07 Lab Interpretation (test code = 24744-1) [facility]normal [facility]XR [facility] 1 [id number] 19:28:17HISTORY: Dyspnea. TECHNIQUE: Portable AP view of the chest is obtained. Comparison made with11/21/2023 study. FINDINGS: No acute pneumonia. No pneumothorax or pleural effusion orpulmonary congestion detected. Mild cardiomegaly noted. Multilevel lowercervical ACDF surgical changes partially visualized. Mild degenerativechanges noted in the right glenohumeral joint. CONCLUSIONS: Mild cardiomegaly.[facility] CenterComp. Metabolic Panel (92272) 2023-12-02 19:27:30* Test Item Value Reference Range Interpretation Comme nts NA (test code = 7296219278) 138 mmol/L 135-145 K (test code = 2958302228) 3.8 mmol/L 3.5-5.0 CL (test code = 8139936951) 106 mmol/L 98-108 CO2 TOTAL (test code = 0372191760) 22 mmol/L 23-31 L AGAP (test code = 0536198996) 10 2-16 BUN (test code = 2795981761) 11 mg/dL 7-23 GLUCOSE (test code = 2903177064) 103 mg/dL 70-110 CREATININE (test code = 2160-0) 0.56 mg/dL 0.50-1.04 TOTAL BILI (test code = 5358461814) 0.8 mg/dL 0.1-1.1 CALCIUM (test code = 9889399221) 8.9 mg/dL 8.6-10.6 T PROTEIN (test code = 2371578681) 7.3 g/dL 6.3-8.2 ALBUMIN (test code = 6733280705) 3.9 g/dL 3.5-5.0 ALK PHOS (test code = 0796383735) 147 U/L 34-122 H ALTv (test code = 1742-6) 34 U/L 5-35 AST(SGOT) (test code = 4373168800) 30 U/L 13-40 eGFR (test code = 11162-6) 110.7 mL/min/1.73m2 CKD-EPI eGFR (2020). Assuming creatinine has been stable day-to-day for at least three months, the eGFR indicates Category G1 (>= 90 mL/min/1.73 m2) Lab Interpretation (test code = 22240-7) [facility]normal [facility] CenterN-[facility]inal Urp-Rml0729-92[facility]:53:15* Test Item Value Reference Range Interpretation Comme nts NT-proBNP (test code = 28647-4) 1070 pg/mL <=125 H LYNDSAY (test code = LYNDSAY) Positive: Heart Failure Likely Lab Interpretation (test code = 98566-2) [facility] 16:41:29* Test Item Value Reference Range Interpretation Comme nts POCT GLU (test code = 5132670949) 129 mg/dL 70-110 H Lab Interpretation (test cod e = 38801-5) [facility] 10:02:12* Test Item Value Reference Range Interpretation Comme nts MAGNESIUM (test code = 8874265768) 2.1 mg/dL 1.7-2.4 Lab Interpretation (test cod e = 49663-0) [facility]:02:12* Test Item Value Reference Range Interpretation Comme nts PHOSPHORUS (test code = 8769725559) 5.9 mg/dL 2.5-5.0 H Lab Interpretation (test cod e = 93105-9) [facility]normal [facility] (09206)2023-11-28 10:02:12* Test Item Value Reference Range Interpretation Comme nts NA (test code = 5391702267) 140 mmol/L 135-145 K (test code = 8729692373) 3.7 mmol/L 3.5-5.0 CL (test code = 2337831801) 98 mmol/L 98-108 CO2 TOTAL (test code = 3222116283) 33 mmol/L 23-31 H AGAP (test code = 2848859423) 9 2-16 BUN (test code = 2522701221) 24 mg/dL 7-23 H GLUCOSE (test code = 9128871830) 107 mg/dL 70-110 CREATININE (test code = 2160-0) 0.61 mg/dL 0.50-1.04 TOTAL BILI (test code = 3899900790) 0.6 mg/dL 0.1-1.1 CALCIUM (test code = 3049977546) 8.0 mg/dL 8.6-10.6 L T PROTEIN (test code = 4448511103) 6.0 g/dL 6.3-8.2 L ALBUMIN (test code = 9130589358) 3.4 g/dL 3.5-5.0 L ALK PHOS (test code = 9387294179) 173 U/L 34-122 H ALTv (test code = 1742-6) 61 U/L 5-35 H AST(SGOT) (test code = 3560875584) 29 U/L 13-40 eGFR (test code = 63688-1) 108.4 mL/min/1.73m2 CKD-EPI eGFR (2020). Assuming creatinine has been stable day-to-day for at least three months, the eGFR indicates Category G1 (>= 90 mL/min/1.73 m2) Lab Interpretation (test code = 75142-7) Abnormal [facility] with Iaqv7078-95-39 09:37:29* Test Item Value Reference Range Interpretation [...] g/dL 31.6-35.1 L RDW-SD (test code = 81558-5) 65.6 fL 39.0-49.9 H RDW-CV (test code = 788-0) 22.0 % 12.0-15.5 H PLT (test code = 777-3) 292 166-358 MPV (test code = 74219-6) 9.1 fL 9.5-12.9 L NRBC/100 WBC (test code = 3180377759) 0.0 0.0-10.0 NRBC x10^3 (test code = 8313341425) See_Comment [Automated [employer] ge] The system which generated this result transmitted reference range: 10*3/?L. The reference range was not used to interpret this result as normal/abnormal. GRAN MAT (NEUT) % (test code = 770-8) 62.0 % IMM GRAN % (test code = 2187472420) 1.20 % LYMPH % (test code = 736-9) 28.5 % MONO % (test code = 5905-5) 7.3 % EOS % (test code = 713-8) 0.9 % BASO % (test code = 706-2) 0.1 % GRAN MAT x10^3(ANC) (test code = 2842396871) 4.98 10*3/uL 1.88-7.09 IMM GRAN x10^3 (test code = 3614926541) 0.10 10*3/uL 0.00-0.06 H LYMPH x10^3 (test code = 731-0) 2.29 10*3/uL 1.32-3.29 MONO x10^3 (test code = 742-7) 0.59 10*3/uL 0.33-0.92 EOS x10^3 (test code = 711-2) 0.07 10*3/uL 0.03-0.39 BASO x10^3 (test code = 704-7) 0.01-0.07 Lab Interpretation (test code = 62304-0) Abnormal [facility] GLUCOSE (AUTOMATED)2023-11-28 01:32:15* Test Item Value Reference Range Interpretation Comme nts POCT GLU (test code = 1807172155) 154 mg/dL 70-110 H Lab Interpretation (test cod e = 67534-5) Abnormal [facility] GLUCOSE (AUTOMATED)2023-11-27 21:45:44* Test Item Value Reference Range Interpretation Comme nts POCT GLU (test code = 6550980316) 183 mg/dL 70-110 H Lab Interpretation (test cod e = 59375-9) Abnormal [facility] GLUCOSE (AUTOMATED)2023-11-27 16:31:46* Test Item Value Reference Range Interpretation Comme nts POCT GLU (test code = 0163172373) 96 mg/dL 70-110 Lab Interpretation (test cod e = 00136-8) Normal [facility] GLUCOSE (AUTOMATED)2023-11-27 12:42:32* Test Item Value Reference Range Interpretation Comme nts POCT GLU (test code = 9300955409) 88 mg/dL 70-110 Lab Interpretation (test cod e = 64982-0) [facility] Kmfei2139-11-13 06:44:07* Test Item Value Reference Range Interpretation Comme nts LACTIC ACID (test code = 6649370245) 1.48 mmol/L 0.50-2.20 Lab Interpretation (test cod e = 30454-1) [facility] 02:37:00* Test Item Value Reference Range Interpretation Comme nts POCT GLU (test code = 1958526028) 167 mg/dL 70-110 H Lab Interpretation (test cod e = 72088-9) [facility]normal [facility] CenterValproic Acid, Ctkq6793-70-01 00:22:04* Test Item Value Reference Range Interpretation Comme nts Valproic Acid, Free (test code = 2538822493) 23.8 ug/mL 4.0-15.0 H LYNDSAY (test code = LYNDSAY) Toxic Range: ? Greater than 15 ug/mL Test developed and characteristics determined by [facility] Laboratory Services. Lab Interpretation (test code = 72378-4) [facility]normal [facility] CenterFolate2024-05-[facility] 22:17:52* Test Item Value Reference Range Interpretation Comme nts FOLATE SER (test code = 9413564334) 10.9 ng/mL 3.0-20.0 Lab Interpretation (test cod e = 78421-3) Normal [facility] CenterVitamin B12, Geyee9179-52-13 22:17:52* Test Item Value Reference Range Interpretation Comme nts VIT B12 (test code = 8956638652) 485 pg/mL 240-930 LYNDSAY (test code = LYNDSAY) Biotin has been reported to cause a positive bias, interpret results relative to patient's use of biotin. Lab Interpretation (test code = 74019-9) Normal [facility] CenterCT [facility] WO DLSFIRYT3954-79-16 22:17:11EXAM: CT HEAD WO CONTRAST HISTORY: 53 [...] The calvarium and central skull base areunremarkable. [facility] CenterMagnesium2024-[facility] 22:11:53* Test Item Value Reference Range Interpretation Comme nts MAGNESIUM (test code = 4632326070) 2.1 mg/dL 1.7-2.4 Lab Interpretation (test cod e = 04363-5) Normal [facility] CenterComp. Metabolic Panel (22566)2023-11-26 22:11:53* Test Item Value Reference Range Interpretation Comme nts NA (test code = 8708368549) 132 mmol/L 135-145 L K (test code = 7470340741) 4.3 mmol/L 3.5-5.0 CL (test code = 4042252447) 94 mmol/L 98-108 L CO2 TOTAL (test code = 0041226836) 34 mmol/L 23-31 H AGAP (test code = 9431826398) 4 2-16 BUN (test code = 2060930557) 24 mg/dL 7-23 H GLUCOSE (test code = 5344399243) 178 mg/dL 70-110 H CREATININE (test code = 2160-0) 0.62 mg/dL 0.50-1.04 TOTAL BILI (test code = 0540244206) 0.6 mg/dL 0.1-1.1 CALCIUM (test code = 1375824988) 8.0 mg/dL 8.6-10.6 L T PROTEIN (test code = 8492488368) 6.1 g/dL 6.3-8.2 L ALBUMIN (test code = 3719488479) 3.5 g/dL 3.5-5.0 ALK PHOS (test code = 8524323589) 212 U/L 34-122 H ALTv (test code = 1742-6) 80 U/L 5-35 H AST(SGOT) (test code = 2251206757) 51 U/L 13-40 H eGFR (test code = 62790-3) 108.0 mL/min/1.73m2 CKD-EPI eGFR (2020). Assuming creatinine has been stable day-to-day for at least three months, the eGFR indicates Category G1 (>= 90 mL/min/1.73 m2) Lab Interpretation (test code = 90549-9) Abnormal [facility] GLUCOSE (AUTOMATED)2023-11-26 21:19:06* Test Item Value Reference Range Interpretation Comme nts POCT GLU (test code = 8225954709) 224 mg/dL 70-110 H Lab Interpretation (test cod e = 48380-3) [facility]normal [facility] CenterKeppra (Levetiracetam)2023-11-26 19:45:17* Test Item Value Reference Range Interpretation Comme nts KEPPRA (test code = 6126469646) 12-46 L LYNDSAY (test code = LYNDSAY) Therapeutic range: 12-46 ?g/mL ? ?Toxic: Not well established.Test developed and characteristics determined by [facility] Laboratory Services. Lab Interpretation (test code = 11707-5) Abnormal [facility] CenterLahiic Acid Whole Azvbq1431-74-01 18:11:07* Test Item Value Reference Range Interpretation Comme [facility] LACTIC ACID (test code = 6784655422) 6.19 mmol/L 0.50-2.20 H Lab Interpretation (test cod e = 94383-6) Abnormal [facility] GLUCOSE (AUTOMATED)2023-11-26 17:06:14* Test Item Value Reference Range Interpretation Comme nts POCT GLU (test code = 6783802882) 293 mg/dL 70-110 H Lab Interpretation (test cod e = 85045-2) [facility]normal [facility] CenterComp. Metabolic Panel (65535)2023-11-26 14:21:31* Test Item Value Reference Range Interpretation Comme nts NA (test code = 4127352893) 140 mmol/L 135-145 K (test code = 6275463416) 3.9 mmol/L 3.5-5.0 CL (test code = 2480123063) 93 mmol/L 98-108 L CO2 TOTAL (test code = 7219565757) 38 mmol/L 23-31 H AGAP (test code = 6276186661) 9 2-16 BUN (test code = 5874064845) 25 mg/dL 7-23 H GLUCOSE (test code = 0909078217) 83 mg/dL 70-110 CREATININE (test code = 2160-0) 0.71 mg/dL 0.50-1.04 TOTAL BILI (test code = 3639754623) 0.7 mg/dL 0.1-1.1 CALCIUM (test code = 8519590207) 8.7 mg/dL 8.6-10.6 T PROTEIN (test code = 8752317290) 6.6 g/dL 6.3-8.2 ALBUMIN (test code = 1349015038) 3.6 g/dL 3.5-5.0 ALK PHOS (test code = 8026366893) 220 U/L 34-122 H ALTv (test code = 1742-6) 95 U/L 5-35 H AST(SGOT) (test code = 8297710684) 47 U/L 13-40 H eGFR (test code = 30421-7) 103.1 mL/min/1.73m2 CKD-EPI eGFR (2020). Assuming creatinine has been stable day-to-day for at least three months, the eGFR indicates Category G1 (>= 90 mL/min/1.73 m2) Lab Interpretation (test code = 22665-0) [facility]normal [facility] CenterMagnesium2024-05-09 14:03:47* Test Item Value Reference Range Interpretation Comme nts MAGNESIUM (test code = 7806843667) 2.3 mg/dL 1.7-2.4 Lab Interpretation (test cod e = 77315-3) Normal [facility] CenterCb with Vbxt2206-42-16 13:57:47* Test Item Value Reference Range Interpretation [...] g/dL 31.6-35.1 L RDW-SD (test code = 17130-5) 67.3 fL 39.0-49.9 H RDW-CV (test code = 788-0) 22.5 % 12.0-15.5 H PLT (test code = 777-3) 285 166-358 MPV (test code = 54882-6) 9.2 fL 9.5-12.9 L NRBC/100 WBC (test code = 0977450701) 0.3 0.0-10.0 NRBC x10^3 (test code = 1485101419) 0.03 See_Comment [Automated messa ge] The system which generated this result transmitted reference range: 10*3/?L. The reference range was not used to interpret this result as normal/abnormal. GRAN MAT (NEUT) % (test code = 770-8) 70.5 % IMM GRAN % (test code = 9932513131) 0.80 % LYMPH % (test code = 736-9) 21.7 % MONO % (test code = 5905-5) 6.4 % EOS % (test code = 713-8) 0.5 % BASO % (test code = 706-2) 0.1 % GRAN MAT x10^3(ANC) (test code = 0401385969) 7.54 10*3/uL 1.88-7.09 H IMM GRAN x10^3 (test code = 4519078564) 0.09 10*3/uL 0.00-0.06 H LYMPH x10^3 (test code = 731-0) 2.32 10*3/uL 1.32-3.29 MONO x10^3 (test code = 742-7) 0.69 10*3/uL 0.33-0.92 EOS x10^3 (test code = 711-2) 0.05 10*3/uL 0.03-0.39 BASO x10^3 (test code = 704-7) 0.01-0.07 Lab Interpretation (test code = 96256-0) [facility] BranchL[facility] Whole Znnvf1599-86-28 10:06:23* Test Item Value Reference Range Interpretation Comme nts LACTIC ACID (test code = 7753848254) 2.41 mmol/L 0.50-2.20 H Lab Interpretation (test cod e = 95725-0) [facility]normal [facility]2023-11-26 02:14:06* Test Item Value Reference Range Interpretation Comme [facility] POCT GLU (test code = 7325846715) 288 mg/dL 70-110 H Lab Interpretation (test cod e = 19236-0) Abnormal [facility] CenterLahiic Acid Whole Morme8311-92-83 00:56:52* Test Item Value Reference Range Interpretation Comme [facility] LACTIC ACID (test code = 6455943193) 2.93 mmol/L 0.50-2.20 H Lab Interpretation (test cod e = 38629-4) Abnormal [facility] CenterElectroencephalogram (EEG) - Duration of test: Continuous EEG Monitoring (LTM); Release to patient:Itsiwcesr3328-77-25 00:00:00 * Test Item Value Reference Range Interpretation Comme [facility] LYNDSAY (test code = LYNDSAY) LONG-TERM EEG MONITORING #1: 11/26/2023, 15:40 - 16: 31 Name: Heather TurnerMRN: [id number]'s Age:53 year oldSex: female History from chart review: This is a 53 year old female with a PMH significant for HFrEF (~35% 05/2023), HTN, Smoker, COPD (on intermittent home O2), chronic low back pain, seizure disorder, C3-C4 ACDF and L3-L4 laminectomies (06/01/23) c/b chronic low back pain 2/2 lumbar spinal stenosis, and depression presenting from [facility] ED due to SOB. Level of [...] segment. Laura Ramirez MD, PhD, FAESData: 11/26/2023 [facility] EEG MONITORING SEGMENT #2: 11/26/23, 16:31:09-19:29:41 In [...] Interpreted by Dewey Neal MD on 11/26/23 -----PUBLIC RELATIONS ACCOUNT EXECUTIVE EEG MONITORING SEGMENT #3: 11/26/23, 19:29:41 to [...] on 11/27/23 Lab Interpretation (test code = 99856-4) Abnormal [facility]. Metabolic Panel (96254)2023-11-25 21:24:39* Test Item Value Reference Range Interpretation Comme nts NA (test code = 3290298084) 134 mmol/L 135-145 L K (test code = 6539775482) 4.3 mmol/L 3.5-5.0 CL (test code = 8197011261) 89 mmol/L 98-108 L CO2 TOTAL (test code = 1919995477) 37 mmol/L 23-31 H AGAP (test code = 6382950432) 8 2-16 BUN (test code = 2273617601) 24 mg/dL 7-23 H GLUCOSE (test code = 8155789793) 177 mg/dL 70-110 H CREATININE (test code = 2160-0) 0.69 mg/dL 0.50-1.04 TOTAL BILI (test code = 5154591435) 0.9 mg/dL 0.1-1.1 CALCIUM (test code = 0254514850) 8.6 mg/dL 8.6-10.6 T PROTEIN (test code = 8620168336) 7.3 g/dL 6.3-8.2 ALBUMIN (test code = 6624864546) 4.1 g/dL 3.5-5.0 ALK PHOS (test code = 1778020513) 263 U/L 34-122 H ALTv (test code = 1742-6) 116 U/L 5-35 H AST(SGOT) (test code = 4819244443) 36 U/L 13-40 eGFR (test code = 18013-1) 105.2 mL/min/1.73m2 CKD-EPI eGFR (2020). Assuming creatinine has been stable day-to-day for at least three months, the eGFR indicates Category G1 (>= 90 mL/min/1.73 m2) Lab Interpretation (test code = 64337-5) [facility]normal [facility] CenterMagnesium2024-05-08 21:24:39* Test Item Value Reference Range Interpretation Comme nts MAGNESIUM (test code = 3147177467) 2.1 mg/dL 1.7-2.4 Lab Interpretation (test cod e = 23937-6) Normal [facility] CenterLactic Acid Whole Mhodq2535-78-59 21:10:26* Test Item Value Reference Range Interpretation Comme nts LACTIC ACID (test code = 4539891543) 4.07 mmol/L 0.50-2.20 H Lab Interpretation (test cod e = 37249-1) Abnormal [facility] GLUCOSE (AUTOMATED)2023-11-25 21:01:04* Test Item Value Reference Range Interpretation Comme nts POCT GLU (test code = 9184849544) 173 mg/dL 70-110 H Lab Interpretation (test cod e = 34996-7) Abnormal [facility] GLUCOSE (AUTOMATED)2023-11-25 16:59:00* Test Item Value Reference Range Interpretation Comme nts POCT GLU (test code = 4271931299) 220 mg/dL 70-110 H Lab Interpretation (test cod e = 95835-9) Abnormal [facility] GLUCOSE (AUTOMATED)2023-11-25 13:06:20* Test Item Value Reference Range Interpretation Comme nts POCT GLU (test code = 7279541210) 92 mg/dL 70-110 Lab Interpretation (test cod e = 98389-0) Normal [facility] CenterLahiic Acid Whole Ywsze5911-84-94 09:28:51* Test Item Value Reference Range Interpretation Comme nts LACTIC ACID (test code = 7306527650) 1.66 mmol/L 0.50-2.20 Lab Interpretation (test cod e = 33666-8) Normal [facility] CenterLactic Acid Whole Mggwg0600-72-83 04:58:57* Test Item Value Reference Range Interpretation Comme [facility] LACTIC ACID (test code = 4886337959) 2.00 mmol/L 0.50-2.20 Lab Interpretation (test cod e = 85240-0) Normal [facility]2023-11-25 03:05:13* Test Item Value Reference Range Interpretation Comme [facility] POCT GLU (test code = 7937297337) 189 mg/dL 70-110 H Lab Interpretation (test cod e = 58433-4) [facility]normal [facility] CenterCT ABDOMEN PELVIS W DKARXKPG6364-35-58 00:18:09CT ABDOMEN PELVIS W CONTRAST 11/24/2023 5:07 [...] There is a 2 mm right lower polenonobstructingrenal stone. A couple of parenchyma hypodensities, too small tocharacterize and probably represent cysts. No solid mass. GI TRACT: The stomach is markedly distended with ingested materia l. Nodistal obstructing mass is evident. There is [...] and lateral abdominal, pelvic and upper thigh skinthickeningand subcutaneous edema.[facility] Siodo8858-93-26 21:31:49* Test Item Value Reference Range Interpretation Comme nts LACTIC ACID (test code = 1643169066) 4.54 mmol/L 0.50-2.20 H Lab Interpretation (test cod e = 79041-4) Abnormal [facility] GLUCOSE (AUTOMATED)2023-11-24 21:31:39* Test Item Value Reference Range Interpretation Comme nts POCT GLU (test code = 6491918729) 198 mg/dL 70-110 H Lab Interpretation (test cod e = 01398-7) Abnormal [facility] GLUCOSE (AUTOMATED)2023-11-24 17:53:57* Test Item Value Reference Range Interpretation Comme nts POCT GLU (test code = 4325077388) 226 mg/dL 70-110 H Lab Interpretation (test cod e = 04483-7) Abnormal [facility] GLUCOSE (AUTOMATED)2023-11-24 17:53:57* Test Item Value Reference Range Interpretation Comme nts POCT GLU (test code = 0203130184) 226 mg/dL 70-110 H Lab Interpretation (test cod e = 74199-2) Abnormal [facility] GLUCOSE (AUTOMATED)2023-11-24 17:53:57* Test Item Value Reference Range Interpretation Comme nts POCT GLU (test code = 8862940432) 226 mg/dL 70-110 H Lab Interpretation (test cod e = 60561-4) [facility]normal [facility] Xvxdn1484-86-77 15:48:27* Test Item Value Reference Range Interpretation Comme nts LACTIC ACID (test code = 4014169007) 4.43 mmol/L 0.50-2.20 H Lab Interpretation (test cod e = 26008-9) [facility]normal [facility] Whole Ajrps5338-62-43 15:48:27* Test Item Value Reference Range Interpretation Comme nts LACTIC ACID (test code = 0485872505) 4.43 mmol/L 0.50-2.20 H Lab Interpretation (test cod e = 02333-3) Abnormal [facility] CenterL[facility] Acid Whole Srgxd1233-81-36 15:48:27* Test Item Value Reference Range Interpretation Comme nts LACTIC ACID (test code = 7689080822) 4.43 mmol/L 0.50-2.20 H Lab Interpretation (test cod e = 27366-1) Abnormal [facility] CenterCardiovascular Futhpvkvrwsbktj9791-05-89 14:28:29? ?RHC/Coronary Angiography Date of Service: 11/23/2023 ?3:18 PM Indication/Diagnosis: heart failure Consent source: self Consent type: indications/complications discussed with patient/legal guardian; written consent obtained Time out completed: yes Aseptic technique: Chlorprep Local Anesthesia: 1% lidocaine without epinephrine Sedation: fentanyl 50 mcg, Versed 2 mg Access site: right radial artery, RIJ [place] 4.0 5fr8 Fr IJ sheathSwan Rosalba ? [...] failure. Nataliia Ivy professor.Division of cardiovascular [facility]Mem[facility]2023-11-24 12:34:31* Test Item Value Reference Range Interpretation Comme nts POCT GLU (test code = 9678646139) 114 mg/dL 70-110 H Lab Interpretation (test cod e = 20986-9) Abnormal [facility] GLUCOSE (AUTOMATED)2023-11-24 12:34:31* Test Item Value Reference Range Interpretation Comme nts POCT GLU (test code = 3322990138) 114 mg/dL 70-110 H Lab Interpretation (test cod e = 81638-5) Abnormal [facility] GLUCOSE (AUTOMATED)2023-11-24 12:34:31* Test Item Value Reference Range Interpretation Comme nts POCT GLU (test code = 1028586304) 114 mg/dL 70-110 H Lab Interpretation (test cod e = 13989-2) Abnormal [facility]2024-05-07 11:10:57* Test Item Value Reference Range Interpretation Comme nts MAGNESIUM (test code = 4202985119) 2.2 mg/dL 1.7-2.4 Lab Interpretation (test cod e = 40385-0) Normal [facility]. Metabolic Panel (62482)2023-11-24 11:10:57* Test Item Value Reference Range Interpretation Comme nts NA (test code = 6215261599) 141 mmol/L 135-145 K (test code = 3976854510) 4.1 mmol/L 3.5-5.0 CL (test code = 4849274968) 97 mmol/L 98-108 L CO2 TOTAL (test code = 2775357577) 36 mmol/L 23-31 H AGAP (test code = 5552510632) 8 2-16 BUN (test code = 6176289455) 20 mg/dL 7-23 GLUCOSE (test code = 3518808864) 125 mg/dL 70-110 H CREATININE (test code = 2160-0) 0.66 mg/dL 0.50-1.04 TOTAL BILI (test code = 5364460483) 0.7 mg/dL 0.1-1.1 CALCIUM (test code = 6170196190) 8.4 mg/dL 8.6-10.6 L T PROTEIN (test code = 1679202520) 6.5 g/dL 6.3-8.2 ALBUMIN (test code = 0064492929) 3.7 g/dL 3.5-5.0 ALK PHOS (test code = 9503798262) 266 U/L 34-122 H ALTv (test code = 1742-6) 149 U/L 5-35 H AST(SGOT) (test code = 4276685574) 35 U/L 13-40 eGFR (test code = 50729-7) 106.4 mL/min/1.73m2 CKD-EPI eGFR (2020). Assuming creatinine has been stable day-to-day for at least three months, the eGFR indicates Category G1 (>= 90 mL/min/1.73 m2) Lab Interpretation (test code = 20018-2) Abnormal [facility]2024-05-07 11:10:57* Test Item Value Reference Range Interpretation Comme nts MAGNESIUM (test code = 5452185150) 2.2 mg/dL 1.7-2.4 Lab Interpretation (test cod e = 62020-1) Normal [facility] Center[facility] Panel (46927)2023-11-24 11:10:57* Test Item Value Reference Range Interpretation Comme nts NA (test code = 2216479702) 141 mmol/L 135-145 K (test code = 6141878340) 4.1 mmol/L 3.5-5.0 CL (test code = 2477748211) 97 mmol/L 98-108 L CO2 TOTAL (test code = 4425557831) 36 mmol/L 23-31 H AGAP (test code = 4135751366) 8 2-16 BUN (test code = 7698897076) 20 mg/dL 7-23 GLUCOSE (test code = 8824220678) 125 mg/dL 70-110 H CREATININE (test code = 2160-0) 0.66 mg/dL 0.50-1.04 TOTAL BILI (test code = 7021896620) 0.7 mg/dL 0.1-1.1 CALCIUM (test code = 5700617737) 8.4 mg/dL 8.6-10.6 L T PROTEIN (test code = 9893621561) 6.5 g/dL 6.3-8.2 ALBUMIN (test code = 9750949271) 3.7 g/dL 3.5-5.0 ALK PHOS (test code = 6168430372) 266 U/L 34-122 H ALTv (test code = 1742-6) 149 U/L 5-35 H AST(SGOT) (test code = 4711797529) 35 U/L 13-40 eGFR (test code = 18872-4) 106.4 mL/min/1.73m2 CKD-EPI eGFR (2020). Assuming creatinine has been stable day-to-day for at least three months, the eGFR indicates Category G1 (>= 90 mL/min/1.73 m2) Lab Interpretation (test code = 09382-1) [facility]normal [facility] CenterMagnesium2024-05-07 11:10:57* Test Item Value Reference Range Interpretation Comme nts MAGNESIUM (test code = 8190392057) 2.2 mg/dL 1.7-2.4 Lab Interpretation (test cod e = 05265-4) Normal [facility] CenterCom. Metabolic Panel (80187)2023-11-24 11:10:57* Test Item Value Reference Range Interpretation Comme nts NA (test code = 5754013774) 141 mmol/L 135-145 K (test code = 5689714169) 4.1 mmol/L 3.5-5.0 CL (test code = 6608394713) 97 mmol/L 98-108 L CO2 TOTAL (test code = 1092469707) 36 mmol/L 23-31 H AGAP (test code = 0040916833) 8 2-16 BUN (test code = 8775711685) 20 mg/dL 7-23 GLUCOSE (test code = 7431179665) 125 mg/dL 70-110 H CREATININE (test code = 2160-0) 0.66 mg/dL 0.50-1.04 TOTAL BILI (test code = 5523469719) 0.7 mg/dL 0.1-1.1 CALCIUM (test code = 9676174353) 8.4 mg/dL 8.6-10.6 L T PROTEIN (test code = 0357573351) 6.5 g/dL 6.3-8.2 ALBUMIN (test code = 6980638113) 3.7 g/dL 3.5-5.0 ALK PHOS (test code = 7038361982) 266 U/L 34-122 H ALTv (test code = 1742-6) 149 U/L 5-35 H AST(SGOT) (test code = 7546862453) 35 U/L 13-40 eGFR (test code = 92974-1) 106.4 mL/min/1.73m2 CKD-EPI eGFR (2020). Assuming creatinine has been stable day-to-day for at least three months, the eGFR indicates Category G1 (>= 90 mL/min/1.73 m2) Lab Interpretation (test code = 60441-2) [facility]normal [facility] CenterL[facility] Acid with 3 Hour Wcydho1779-14-18 11:07:59* Test Item Value Reference Range Interpretation Comme nts LACTIC ACID (test code = 8529412019) 3.41 mmol/L 0.50-2.20 H Lab Interpretation (test cod e = 06443-9) [facility] Zzrcft8156-42-47 11:07:59* Test Item Value Reference Range Interpretation Comme nts LACTIC ACID (test code = 3646969111) 3.41 mmol/L 0.50-2.20 H Lab Interpretation (test cod e = 90909-2) [facility] Ekmxai2356-85-59 11:07:59* Test Item Value Reference Range Interpretation Comme nts LACTIC ACID (test code = 9849842952) 3.41 mmol/L 0.50-2.20 H Lab Interpretation (test cod e = 48986-7) Abnormal [facility] with Jtas9129-09-17 10:28:34* Test Item Value Reference Range Interpretation [...] g/dL 31.6-35.1 L RDW-SD (test code = 32291-9) 67.5 fL 39.0-49.9 H RDW-CV (test code = 788-0) 22.5 % 12.0-15.5 H PLT (test code = 777-3) 245 166-358 MPV (test code = 84348-1) 9.5 fL 9.5-12.9 NRBC/100 WBC (test code = 4627115139) 1.2 0.0-10.0 NRBC x10^3 (test code = 4510292935) 0.11 See_Comment [Automated messa ge] The system which generated this result transmitted reference range: 10*3/?L. The reference range was not used to interpret this result as normal/abnormal. GRAN MAT (NEUT) % (test code = 770-8) 84.8 % IMM GRAN % (test code = 3516903614) 0.80 % LYMPH % (test code = 736-9) 7.3 % MONO % (test code = 5905-5) 7.0 % EOS % (test code = 713-8) 0.0 % BASO % (test code = 706-2) 0.1 % GRAN MAT x10^3(ANC) (test code = 6550636746) 8.03 10*3/uL 1.88-7.09 H IMM GRAN x10^3 (test code = 4224016277) 0.08 10*3/uL 0.00-0.06 H LYMPH x10^3 (test code = 731-0) 0.69 10*3/uL 1.32-3.29 L MONO x10^3 (test code = 742-7) 0.66 10*3/uL 0.33-0.92 EOS x10^3 (test code = 711-2) 0.03-0.39 L BASO x10^3 (test code = 704-7) 0.01-0.07 Lab Interpretation (test code = 70162-4) Abnormal [facility] with Higf3975-74-24 10:28:34* Test Item Value Reference Range Interpretation [...] g/dL 31.6-35.1 L RDW-SD (test code = 51506-1) 67.5 fL 39.0-49.9 H RDW-CV (test code = 788-0) 22.5 % 12.0-15.5 H PLT (test code = 777-3) 245 166-358 MPV (test code = 41576-3) 9.5 fL 9.5-12.9 NRBC/100 WBC (test code = 5212165890) 1.2 0.0-10.0 NRBC x10^3 (test code = 9327321790) 0.11 See_Comment [Automated messa ge] The system which generated this result transmitted reference range: 10*3/?L. The reference range was not used to interpret this result as normal/abnormal. GRAN MAT (NEUT) % (test code = 770-8) 84.8 % IMM GRAN % (test code = 4660266478) 0.80 % LYMPH % (test code = 736-9) 7.3 % MONO % (test code = 5905-5) 7.0 % EOS % (test code = 713-8) 0.0 % BASO % (test code = 706-2) 0.1 % GRAN MAT x10^3(ANC) (test code = 9011016100) 8.03 10*3/uL 1.88-7.09 H IMM GRAN x10^3 (test code = 6602442717) 0.08 10*3/uL 0.00-0.06 H LYMPH x10^3 (test code = 731-0) 0.69 10*3/uL 1.32-3.29 L MONO x10^3 (test code = 742-7) 0.66 10*3/uL 0.33-0.92 EOS x10^3 (test code = 711-2) 0.03-0.39 L BASO x10^3 (test code = 704-7) 0.01-0.07 Lab Interpretation (test code = 08232-8) Abnormal [facility] with [id number] 10:28:34* Test Item Value Reference Range Interpretation [...] g/dL 31.6-35.1 L RDW-SD (test code = 83393-6) 67.5 fL 39.0-49.9 H RDW-CV (test code = 788-0) 22.5 % 12.0-15.5 H PLT (test code = 777-3) 245 166-358 MPV (test code = 24118-7) 9.5 fL 9.5-12.9 NRBC/100 WBC (test code = 3416370862) 1.2 0.0-10.0 NRBC x10^3 (test code = 7209972875) 0.11 See_Comment [Automated messa ge] The system which generated this result transmitted reference range: 10*3/?L. The reference range was not used to interpret this result as normal/abnormal. GRAN MAT (NEUT) % (test code = 770-8) 84.8 % IMM GRAN % (test code = 4579920266) 0.80 % LYMPH % (test code = 736-9) 7.3 % MONO % (test code = 5905-5) 7.0 % EOS % (test code = 713-8) 0.0 % BASO % (test code = 706-2) 0.1 % GRAN MAT x10^3(ANC) (test code = 0282527071) 8.03 10*3/uL 1.88-7.09 H IMM GRAN x10^3 (test code = 8260983655) 0.08 10*3/uL 0.00-0.06 H LYMPH x10^3 (test code = 731-0) 0.69 10*3/uL 1.32-3.29 L MONO x10^3 (test code = 742-7) 0.66 10*3/uL 0.33-0.92 EOS x10^3 (test code = 711-2) 0.03-0.39 L BASO x10^3 (test code = 704-7) 0.01-0.07 Lab Interpretation (test code = 15797-6) [facility] 06:40:52* Test Item Value Reference Range Interpretation Comme nts APTT Patient (test code = 3173-2) 36 Lab Interpretation (test cod e = 85759-6) [facility]2023-11-24 06:40:52* Test Item Value Reference Range Interpretation Comme nts APTT Patient (test code = 3173-2) 36 Lab Interpretation (test cod e = 16290-0) Normal [facility] (for use with Heparin Infusion)2023-11-24 06:40:52* Test Item Value Reference Range Interpretation Comme nts APTT Patient (test code = 3173-2) 36 Lab Interpretation (test cod e = 80501-2) Normal [facility] GLUCOSE (AUTOMATED)2023-11-24 03:18:58* Test Item Value Reference Range Interpretation Comme nts POCT GLU (test code = 6235737763) 263 mg/dL 70-110 H Lab Interpretation (test cod e = 15953-2) Abnormal [facility] GLUCOSE (AUTOMATED)2023-11-24 03:18:58* Test Item Value Reference Range Interpretation Comme nts POCT GLU (test code = 0557975920) 263 mg/dL 70-110 H Lab Interpretation (test cod e = 72740-8) Abnormal [facility] GLUCOSE (AUTOMATED)2023-11-24 03:18:58* Test Item Value Reference Range Interpretation Comme nts POCT GLU (test code = 6552210491) 263 mg/dL 70-110 H Lab Interpretation (test cod e = 99956-4) Abnormal [facility] GLUCOSE (AUTOMATED)2023-11-23 21:29:57* Test Item Value Reference Range Interpretation Comme nts POCT GLU (test code = 5287956397) 137 mg/dL 70-110 H Lab Interpretation (test cod e = 56259-8) Abnormal [facility] GLUCOSE (AUTOMATED)2023-11-23 21:29:57* Test Item Value Reference Range Interpretation Comme nts POCT GLU (test code = 7785770542) 137 mg/dL 70-110 H Lab Interpretation (test cod e = 59675-6) [facility] 21:29:57* Test Item Value Reference Range Interpretation Comme nts POCT GLU (test code = 5241678806) 137 mg/dL 70-110 H Lab Interpretation (test cod e = 47263-4) [facility] (ALB,T.PRO,BILI T,BU/BC,ALT,AST,ALK PHOS)2023-11-23 17:45:02* Test Item Value Reference Range Interpretation Comme nts TOTAL BILI (test code = 5105477210) 0.7 mg/dL 0.1-1.1 BILI UNCON (test code = 5296574756) 0.1 mg/dL 0.1-1.1 BILI CONJ (test code = 1524906130) 0.0 mg/dL 0.0-0.3 T PROTEIN (test code = 5317085457) 6.2 g/dL 6.3-8.2 L ALBUMIN (test code = 5047645456) 3.5 g/dL 3.5-5.0 ALK PHOS (test code = 9103188941) 274 U/L 34-122 H ALTv (test code = 1742-6) 176 U/L 5-35 H AST(SGOT) (test code = 8270793426) 40 U/L 13-40 Lab Interpretation (test cod e = 17774-9) [facility] (ALB,T.PRO,BILI T,BU/BC,ALT,AST,ALK PHOS)2023-11-23 17:45:02* Test Item Value Reference Range Interpretation Comme nts TOTAL BILI (test code = 8129955856) 0.7 mg/dL 0.1-1.1 BILI UNCON (test code = 5200024688) 0.1 mg/dL 0.1-1.1 BILI CONJ (test code = 2020515679) 0.0 mg/dL 0.0-0.3 T PROTEIN (test code = 1082930387) 6.2 g/dL 6.3-8.2 L ALBUMIN (test code = 7693986921) 3.5 g/dL 3.5-5.0 ALK PHOS (test code = 2893284248) 274 U/L 34-122 H ALTv (test code = 1742-6) 176 U/L 5-35 H AST(SGOT) (test code = 5305800846) 40 U/L 13-40 Lab Interpretation (test cod e = 41246-5) [facility]45[facility] (ALB,T.PRO,BILI T,BU/BC,ALT,AST,ALK PHOS)2023-11-23 17:45:02* Test Item Value Reference Range Interpretation Comme nts TOTAL BILI (test code = 1128935935) 0.7 mg/dL 0.1-1.1 BILI UNCON (test code = 7720673617) 0.1 mg/dL 0.1-1.1 BILI CONJ (test code = 3602525743) 0.0 mg/dL 0.0-0.3 T PROTEIN (test code = 1150132563) 6.2 g/dL 6.3-8.2 L ALBUMIN (test code = 9498468865) 3.5 g/dL 3.5-5.0 ALK PHOS (test code = 8229837924) 274 U/L 34-122 H ALTv (test code = 1742-6) 176 U/L 5-35 H AST(SGOT) (test code = 5416279245) 40 U/L 13-40 Lab Interpretation (test cod e = 48186-6) Abnormal [facility] GLUCOSE (AUTOMATED)2023-11-23 17:19:25* Test Item Value Reference Range Interpretation Comme nts POCT GLU (test code = 9798440807) 137 mg/dL 70-110 H Lab Interpretation (test cod e = 84063-8) Abnormal [facility] GLUCOSE (AUTOMATED)2023-11-23 17:19:25* Test Item Value Reference Range Interpretation Comme nts POCT GLU (test code = 6275133163) 137 mg/dL 70-110 H Lab Interpretation (test cod e = 61222-1) Abnormal [facility] GLUCOSE (AUTOMATED)2023-11-23 17:19:25* Test Item Value Reference Range Interpretation Comme nts POCT GLU (test code = 9839169629) 137 mg/dL 70-110 H Lab Interpretation (test cod e = 64913-7) Abnormal [facility] GLUCOSE (AUTOMATED)2023-11-23 16:51:25* Test Item Value Reference Range Interpretation Comme nts POCT GLU (test code = 9470082627) 145 mg/dL 70-110 H Lab Interpretation (test cod e = 23953-8) Abnormal [facility] GLUCOSE (AUTOMATED)2023-11-23 16:51:25* Test Item Value Reference Range Interpretation Comme nts POCT GLU (test code = 9617403106) 145 mg/dL 70-110 H Lab Interpretation (test cod e = 93917-8) Abnormal [facility] GLUCOSE (AUTOMATED)2023-11-23 16:51:25* Test Item Value Reference Range Interpretation Comme nts POCT GLU (test code = 8604528816) 145 mg/dL 70-110 H Lab Interpretation (test cod e = 34457-6) [facility]23 15:36:08* Test Item Value Reference Range Interpretation Comme nts APTT Patient (test code = 3173-2) 44 26-36 H Lab Interpretation (test cod e = 09693-7) [facility]2023-11-23 15:36:08* Test Item Value Reference Range Interpretation Comme nts APTT Patient (test code = 3173-2) 44 26-36 H Lab Interpretation (test cod e = 20971-4) [facility]2023-11-23 15:36:08* Test Item Value Reference Range Interpretation Comme nts APTT Patient (test code = 3173-2) 44 26-36 H Lab Interpretation (test cod e = 09465-8) [facility] Whole Lzgee3864-05-68 15:21:35* Test Item Value Reference Range Interpretation Comme nts LACTIC ACID (test code = 0420686964) 4.80 mmol/L 0.50-2.20 H Lab Interpretation (test cod e = 35830-2) [facility] Center[facility] Whole Yywng4646-66-91 15:21:35* Test Item Value Reference Range Interpretation Comme nts LACTIC ACID (test code = 1235520580) 4.80 mmol/L 0.50-2.20 H Lab Interpretation (test cod e = 30921-8) [facility]normal [facility] Whole Tyzms8413-97-71 15:21:35* Test Item Value Reference Range Interpretation Comme nts LACTIC ACID (test code = 5870037394) 4.80 mmol/L 0.50-2.20 H Lab Interpretation (test cod e = 54315-7) Abnormal [facility] GLUCOSE (AUTOMATED)2023-11-23 12:49:15* Test Item Value Reference Range Interpretation Comme nts POCT GLU (test code = 2004732040) 162 mg/dL 70-110 H Lab Interpretation (test cod e = 93832-2) Abnormal [facility] GLUCOSE (AUTOMATED)2023-11-23 12:49:15* Test Item Value Reference Range Interpretation Comme nts POCT GLU (test code = 3422509783) 162 mg/dL 70-110 H Lab Interpretation (test cod e = 44781-5) Abnormal [facility] GLUCOSE (AUTOMATED)2023-11-23 12:49:15* Test Item Value Reference Range Interpretation Comme nts POCT GLU (test code = 9446971613) 162 mg/dL 70-110 H Lab Interpretation (test cod e = 41284-7) [facility] 08:44:42* Test Item Value Reference Range Interpretation Comme nts MAGNESIUM (test code = 2069056664) 1.9 mg/dL 1.7-2.4 Lab Interpretation (test cod e = 52519-5) Normal [facility] Metabolic Panel (NA, K, CL, CO2, GLUCOSE, BUN, CREATININE, CA)2023-11-23 08:44:42* Test Item Value Reference Range Interpretation Comme nts NA (test code = 9024187132) 136 mmol/L 135-145 K (test code = 9641489178) 3.7 mmol/L 3.5-5.0 CL (test code = 5459986493) 99 mmol/L 98-108 CO2 TOTAL (test code = 7784156696) 31 mmol/L 23-31 AGAP (test code = 8471220850) 6 2-16 BUN (test code = 9015814819) 20 mg/dL 7-23 GLUCOSE (test code = 9867330777) 184 mg/dL 70-110 H CREATININE (test code = 2160-0) 0.66 mg/dL 0.50-1.04 CALCIUM (test code = 8681538931) 7.9 mg/dL 8.6-10.6 L eGFR (test code = 37486-7) 106.4 mL/min/1.73m2 CKD-EPI eGFR (2020). Assuming creatinine has been stable day-to-day for at least three months, the eGFR indicates Category G1 (>= 90 mL/min/1.73 m2) Lab Interpretation (test code = 16323-3) [facility] 08:44:42* Test Item Value Reference Range Interpretation Comme nts MAGNESIUM (test code = 3380462513) 1.9 mg/dL 1.7-2.4 Lab Interpretation (test cod e = 06565-3) [facility] (NA, K, CL, CO2, GLUCOSE, BUN, CREATININE, CA)2023-11-23 08:44:42* Test Item Value Reference Range Interpretation Comme nts NA (test code = 9006343015) 136 mmol/L 135-145 K (test code = 1295685879) 3.7 mmol/L 3.5-5.0 CL (test code = 8141689335) 99 mmol/L 98-108 CO2 TOTAL (test code = 6402217797) 31 mmol/L 23-31 AGAP (test code = 0786213973) 6 2-16 BUN (test code = 0888540363) 20 mg/dL 7-23 GLUCOSE (test code = 0180142718) 184 mg/dL 70-110 H CREATININE (test code = 2160-0) 0.66 mg/dL 0.50-1.04 CALCIUM (test code = 2344683607) 7.9 mg/dL 8.6-10.6 L eGFR (test code = 69333-9) 106.4 mL/min/1.73m2 CKD-EPI eGFR (2020). Assuming creatinine has been stable day-to-day for at least three months, the eGFR indicates Category G1 (>= 90 mL/min/1.73 m2) Lab Interpretation (test code = 84805-6) [facility] 08:44:42* Test Item Value Reference Range Interpretation Comme nts MAGNESIUM (test code = 4582584360) 1.9 mg/dL 1.7-2.4 Lab Interpretation (test cod e = 82526-6) Normal [facility] Metabolic Panel (NA, K, CL, CO2, GLUCOSE, BUN, CREATININE, CA)2023-11-23 08:44:42* Test Item Value Reference Range Interpretation Comme nts NA (test code = 7526053329) 136 mmol/L 135-145 K (test code = 2075308915) 3.7 mmol/L 3.5-5.0 CL (test code = 4853643591) 99 mmol/L 98-108 CO2 TOTAL (test code = 6366173670) 31 mmol/L 23-31 AGAP (test code = 1093298876) 6 2-16 BUN (test code = 4571285539) 20 mg/dL 7-23 GLUCOSE (test code = 9457153845) 184 mg/dL 70-110 H CREATININE (test code = 2160-0) 0.66 mg/dL 0.50-1.04 CALCIUM (test code = 3236748076) 7.9 mg/dL 8.6-10.6 L eGFR (test code = 42951-2) 106.4 mL/min/1.73m2 CKD-EPI eGFR (2020). Assuming creatinine has been stable day-to-day for at least three months, the eGFR indicates Category G1 (>= 90 mL/min/1.73 m2) Lab Interpretation (test code = 49404-0) [facility]2023-11-23 08:29:39* Test Item Value Reference Range Interpretation Comme nts APTT Patient (test code = 3173-2) 49 26-36 H Lab Interpretation (test cod e = 55888-3) [facility]2023-11-23 08:29:39* Test Item Value Reference Range Interpretation Comme [facility] APTT Patient (test code = 3173-2) 49 26-36 H Lab Interpretation (test cod e = 48891-2) Abnormal [facility] (for use with Heparin Infusion)2023-11-23 08:29:39* Test Item Value Reference Range Interpretation Comme [facility] APTT Patient (test code = 3173-2) 49 26-36 H Lab Interpretation (test cod e = 93900-8) Abnormal [facility] with Eybj3974-73-38 08:24:03* Test Item Value Reference Range Interpretation [...] g/dL 31.6-35.1 L RDW-SD (test code = 29268-0) 66.0 fL 39.0-49.9 H RDW-CV (test code = 788-0) 22.5 % 12.0-15.5 H PLT (test code = 777-3) 204 166-358 MPV (test code = 07304-5) 9.8 fL 9.5-12.9 NRBC/100 WBC (test code = 8164893066) 2.4 0.0-10.0 NRBC x10^3 (test code = 6780203209) 0.17 See_Comment [Automated messa ge] The system which generated this result transmitted reference range: 10*3/?L. The reference range was not used to interpret this result as normal/abnormal. GRAN MAT (NEUT) % (test code = 770-8) 80.3 % IMM GRAN % (test code = 9358962328) 1.70 % LYMPH % (test code = 736-9) 9.5 % MONO % (test code = 5905-5) 8.5 % EOS % (test code = 713-8) 0.0 % BASO % (test code = 706-2) 0.0 % GRAN MAT x10^3(ANC) (test code = 1466358936) 5.77 10*3/uL 1.88-7.09 IMM GRAN x10^3 (test code = 3937499616) 0.12 10*3/uL 0.00-0.06 H LYMPH x10^3 (test code = 731-0) 0.68 10*3/uL 1.32-3.29 L MONO x10^3 (test code = 742-7) 0.61 10*3/uL 0.33-0.92 EOS x10^3 (test code = 711-2) 0.03-0.39 L BASO x10^3 (test code = 704-7) 0.01-0.07 Lab Interpretation (test code = 34824-4) Abnormal [facility] with Cdxx5289-33-28 08:24:03* Test Item Value Reference Range Interpretation [...] g/dL 31.6-35.1 L RDW-SD (test code = 80111-3) 66.0 fL 39.0-49.9 H RDW-CV (test code = 788-0) 22.5 % 12.0-15.5 H PLT (test code = 777-3) 204 166-358 MPV (test code = 96123-9) 9.8 fL 9.5-12.9 NRBC/100 WBC (test code = 1109228021) 2.4 0.0-10.0 NRBC x10^3 (test code = 9228642335) 0.17 See_Comment [Automated messa ge] The system which generated this result transmitted reference range: 10*3/?L. The reference range was not used to interpret this result as normal/abnormal. GRAN MAT (NEUT) % (test code = 770-8) 80.3 % IMM GRAN % (test code = 1714065443) 1.70 % LYMPH % (test code = 736-9) 9.5 % MONO % (test code = 5905-5) 8.5 % EOS % (test code = 713-8) 0.0 % BASO % (test code = 706-2) 0.0 % GRAN MAT x10^3(ANC) (test code = 8182406958) 5.77 10*3/uL 1.88-7.09 IMM GRAN x10^3 (test code = 0707709516) 0.12 10*3/uL 0.00-0.06 H LYMPH x10^3 (test code = 731-0) 0.68 10*3/uL 1.32-3.29 L MONO x10^3 (test code = 742-7) 0.61 10*3/uL 0.33-0.92 EOS x10^3 (test code = 711-2) 0.03-0.39 L BASO x10^3 (test code = 704-7) 0.01-0.07 Lab Interpretation (test code = 84180-7) Abnormal [facility] with Citt5946-91-69 08:24:03* Test Item Value Reference Range Interpretation [...] g/dL 31.6-35.1 L RDW-SD (test code = 69611-3) 66.0 fL 39.0-49.9 H RDW-CV (test code = 788-0) 22.5 % 12.0-15.5 H PLT (test code = 777-3) 204 166-358 MPV (test code = 87989-2) 9.8 fL 9.5-12.9 NRBC/100 WBC (test code = 8505647828) 2.4 0.0-10.0 NRBC x10^3 (test code = 1902923710) 0.17 See_Comment [Automated messa ge] The system which generated this result transmitted reference range: 10*3/?L. The reference range was not used to interpret this result as normal/abnormal. GRAN MAT (NEUT) % (test code = 770-8) 80.3 % IMM GRAN % (test code = 3106679767) 1.70 % LYMPH % (test code = 736-9) 9.5 % MONO % (test code = 5905-5) 8.5 % EOS % (test code = 713-8) 0.0 % BASO % (test code = 706-2) 0.0 % GRAN MAT x10^3(ANC) (test code = 1070255161) 5.77 10*3/uL 1.88-7.09 IMM GRAN x10^3 (test code = 5944686243) 0.12 10*3/uL 0.00-0.06 H LYMPH x10^3 (test code = 731-0) 0.68 10*3/uL 1.32-3.29 L MONO x10^3 (test code = 742-7) 0.61 10*3/uL 0.33-0.92 EOS x10^3 (test code = 711-2) 0.03-0.39 L BASO x10^3 (test code = 704-7) 0.01-0.07 Lab Interpretation (test code = 24149-1) Abnormal [facility] Acid Whole Cghqk0852-11-41 08:04:10* Test Item Value Reference Range Interpretation Comme nts LACTIC ACID (test code = 5933820694) 4.15 mmol/L 0.50-2.20 H Lab Interpretation (test cod e = 14148-6) [facility] Vetww8866-23-83 08:04:10* Test Item Value Reference Range Interpretation Comme nts LACTIC ACID (test code = 8413459208) 4.15 mmol/L 0.50-2.20 H Lab Interpretation (test cod e = 35173-4) [facility] Osnvy0589-34-80 08:04:10* Test Item Value Reference Range Interpretation Comme nts LACTIC ACID (test code = 4688133006) 4.15 mmol/L 0.50-2.20 H Lab Interpretation (test cod e = 83285-0) [facility] Yvikt9712-22-42 05:11:29* Test Item Value Reference Range Interpretation Comme nts LACTIC ACID (test code = 3496727909) 4.23 mmol/L 0.50-2.20 H Lab Interpretation (test cod e = 34625-2) [facility] Uuziu3493-83-62 05:11:29* Test Item Value Reference Range Interpretation Comme nts LACTIC ACID (test code = 3231828905) 4.23 mmol/L 0.50-2.20 H Lab Interpretation (test cod e = 08493-6) [facility] Yvsih7288-94-45 05:11:29* Test Item Value Reference Range Interpretation Comme nts LACTIC ACID (test code = 0639318388) 4.23 mmol/L 0.50-2.20 H Lab Interpretation (test cod e = 37106-1) [facility] Azdus1159-26-60 03:16:26* Test Item Value Reference Range Interpretation Comme nts LACTIC ACID (test code = 8840891488) 3.66 mmol/L 0.50-2.20 H Lab Interpretation (test cod e = 35792-1) [facility] Jrrfg4323-32-48 03:16:26* Test Item Value Reference Range Interpretation Comme nts LACTIC ACID (test code = 8214871874) 3.66 mmol/L 0.50-2.20 H Lab Interpretation (test cod e = 48709-2) [facility] Nwcuo5640-42-94 03:16:26* Test Item Value Reference Range Interpretation Comme nts LACTIC ACID (test code = 7565828183) 3.66 mmol/L 0.50-2.20 H Lab Interpretation (test cod e = 02328-1) [facility] Jrtgr5012-20-14 01:21:56* Test Item Value Reference Range Interpretation Comme nts LACTIC ACID (test code = 8695355163) 3.68 mmol/L 0.50-2.20 H Lab Interpretation (test cod e = 74689-4) [facility] Jycxr3401-03-85 01:21:56* Test Item Value Reference Range Interpretation Comme nts LACTIC ACID (test code = 3553640610) 3.68 mmol/L 0.50-2.20 H Lab Interpretation (test cod e = 22295-4) [facility] Sljqo2490-92-42 01:21:56* Test Item Value Reference Range Interpretation Comme nts LACTIC ACID (test code = 0946257184) 3.68 mmol/L 0.50-2.20 H Lab Interpretation (test cod e = 67188-5) Abnormal [facility] GLUCOSE (AUTOMATED)2023-11-23 01:07:13* Test Item Value Reference Range Interpretation Comme nts POCT GLU (test code = 6055457005) 193 mg/dL 70-110 H Lab Interpretation (test cod e = 10320-5) Abnormal [facility] GLUCOSE (AUTOMATED)2023-11-23 01:07:13* Test Item Value Reference Range Interpretation Comme nts POCT GLU (test code = 5653856429) 193 mg/dL 70-110 H Lab Interpretation (test cod e = 51044-5) Abnormal [facility] GLUCOSE (AUTOMATED)2023-11-23 01:07:13* Test Item Value Reference Range Interpretation Comme nts POCT GLU (test code = 4997125459) 193 mg/dL 70-110 H Lab Interpretation (test cod e = 93892-0) Abnormal [facility] Acid Whole Lyjzd6448-74-68 23:56:10* Test Item Value Reference Range Interpretation Comme nts LACTIC ACID (test code = 5284303038) 3.82 mmol/L 0.50-2.20 H Lab Interpretation (test cod e = 08637-5) Abnormal [facility] Acid Whole Omfsh6236-05-26 23:56:10* Test Item Value Reference Range Interpretation Comme nts LACTIC ACID (test code = 5739280240) 3.82 mmol/L 0.50-2.20 H Lab Interpretation (test cod e = 68112-8) Abnormal [facility] Acid Whole Zhbns1385-54-47 23:56:10* Test Item Value Reference Range Interpretation Comme nts LACTIC ACID (test code = 3268696411) 3.82 mmol/L 0.50-2.20 H Lab Interpretation (test cod e = 13803-3) Abnormal [facility] GLUCOSE (AUTOMATED)2023-11-22 22:00:27* Test Item Value Reference Range Interpretation Comme nts POCT GLU (test code = 4377365997) 218 mg/dL 70-110 H Lab Interpretation (test cod e = 15271-3) Abnormal [facility] GLUCOSE (AUTOMATED)2023-11-22 22:00:27* Test Item Value Reference Range Interpretation Comme nts POCT GLU (test code = 7689745447) 218 mg/dL 70-110 H Lab Interpretation (test cod e = 11110-4) Abnormal [facility] GLUCOSE (AUTOMATED)2023-11-22 22:00:27* Test Item Value Reference Range Interpretation Comme nts POCT GLU (test code = 0740677142) 218 mg/dL 70-110 H Lab Interpretation (test cod e = 36091-1) [facility] Zqtxs1637-46-52 21:49:39* Test Item Value Reference Range Interpretation Comme nts LACTIC ACID (test code = 2830788785) 4.40 mmol/L 0.50-2.20 H Lab Interpretation (test cod e = 16991-8) [facility] Ihmom7074-97-63 21:49:39* Test Item Value Reference Range Interpretation Comme nts LACTIC ACID (test code = 1205556210) 4.40 mmol/L 0.50-2.20 H Lab Interpretation (test cod e = 00917-8) [facility] Gjpru3374-02-93 21:49:39* Test Item Value Reference Range Interpretation Comme nts LACTIC ACID (test code = 7211174702) 4.40 mmol/L 0.50-2.20 H Lab Interpretation (test cod e = 52389-7) Abnormal [facility] GLUCOSE (AUTOMATED)2023-11-22 21:02:20* Test Item Value Reference Range Interpretation Comme nts POCT GLU (test code = 9164297871) 208 mg/dL 70-110 H Lab Interpretation (test cod e = 37082-4) Abnormal [facility] GLUCOSE (AUTOMATED)2023-11-22 21:02:20* Test Item Value Reference Range Interpretation Comme nts POCT GLU (test code = 6573607578) 208 mg/dL 70-110 H Lab Interpretation (test cod e = 90917-9) Abnormal [facility] GLUCOSE (AUTOMATED)2023-11-22 21:02:20* Test Item Value Reference Range Interpretation Comme nts POCT GLU (test code = 7850970334) 208 mg/dL 70-110 H Lab Interpretation (test cod e = 88456-2) [facility] Qgyhp3776-91-89 20:01:46* Test Item Value Reference Range Interpretation Comme nts LACTIC ACID (test code = 0597107359) 6.14 mmol/L 0.50-2.20 H Lab Interpretation (test cod e = 98218-0) [facility] Qrgtq3509-59-13 20:01:46* Test Item Value Reference Range Interpretation Comme nts LACTIC ACID (test code = 2188359971) 6.14 mmol/L 0.50-2.20 H Lab Interpretation (test cod e = 87800-4) [facility]normal [facility] Whole Ulpvn3785-06-88 20:01:46* Test Item Value Reference Range Interpretation Comme nts LACTIC ACID (test code = 0951036288) 6.14 mmol/L 0.50-2.20 H Lab Interpretation (test cod e = 80851-0) [facility] FYHFPJF2504-89-56 18:29:14 Procedure: ? RIGHT UPPER QUADRANT ULTRASOUND [...] are sonographically unremarkable inappearance. ?No evidence to ascites.[facility] ABDOMEN LIMITED 2023-11-22 18:29:14Procedure: ? RIGHT UPPER [...] are sonographically unremarkable inappearance. ?No evidence to ascites.[facility] Transthoracic echo (TTE)2023-11-22 18:16:22* Test Item Value Reference Range Interpretation Comme nts Height (test code = 6396643908) 63 in Weight (test code = 8500810629) 208 lbs Systolic BP (test code = 7384456669) 146 mmHg Diastolic BP (test code = 9006329037) 103 mmHg Heart Rate (test code = 5987712885) 112 bpm BSA (test code = 3295676594) 1.97 m2 LVOT diameter (test code = 2781697874) 2.5 cm LVOT area (test code = 5218726404) 5.00 cm2 LA size (test code = 1932176925) 4.2 cm MV Peak E Evette (test code = 2414922551) 128.5 cm/s MV Peak A Evette (test code = 9297736301) 62.4 cm/s E/A ratio (test code = 5247350731) 2.06 ratio E wave decelartion time (test code = 9738104754) 0.12 s MV Prop V (test code = 8477567127) 38.00 cm/s LAV(MOD-sp4) (test code = 9806175156) 68.70 mL Tapse (test code = 5706485147) 0.7 cm LA Volume Index (BP) (test code = 9005308263) 34.6 mL/m2 LA volume (BP) (test code = 4749331259) 68.0 mL LAV(MOD-sp2) (test code = 9028331154) 66.30 mL Ao peak evette (test code = 3904727560) 124.9 cm/s Ao max PG (test code = 2580477156) 6.20 mm[Hg] AV peak gradient (test code = 3563854255) 6.2 mmHg LVOT stroke volume (test code = 1814487068) 42.40 cm3 LVOT peak evette (test code = 5431071315) 67.8 cm/s LVOT mn grad (test code = 7818120732) 0.9 mmHg AV LVOT peak gradient (test code = 2976706267) 1.84 mmHg LVOT peak VTI (test code = 3426592508) 8.4 cm AV area peak evette (test code = 8908574944) 2.7 cm2 LV V1 mean (test code = 0965582984) 43.20 cm/s TR Peak Evette (test code = 9548505078) 247.7 cm/s Triscuspid Valve Regurgitation Peak Gradient (test code = 3678463285) 24.5 mmHg MR max PG (test code = 5816800792) 85.20 mm[Hg] MR max evette (test code = 9099885228) 461.50 cm/s Mr max evette (test code = 0100921741) 461.5 m/s AV regurgitation pressure 1/2 time (test code = 4701874163) 305.5 ms AI dec slope (test code = 1235634533) 432.10 cm/s2 AI max evette (test code = 7222923185) 450.60 cm/s AI max PG (test code = 8358863733) 81.20 mm[Hg] LVIDD (test code = 0411970863) 5.00 cm Left Ventricular End Diastolic Volume by Teichholz Method (test code = 8728484) 116.6 mL IVS (test code = 0322686659) 0.93 cm Interventricular Septum Diastolic Thickness by 2D (test code = 1720617) 0.93 cm LVPWD (test code = 0409397302) 1.00 cm PW (test code = 2543946781) 1.00 cm 0.6-1.1 EF(Teich) (test code = 6165423640) 33.90 % LVIDS (test code = 9444901928) 4.20 cm Left Ventricular End Systolic Volume by Teichholz Method (test code = 6350326) 77.1 mL FS (test code = 7092780240) 16 % EF - 2D (test code = 30438939) 33.90 % Radiology Study observation (narrative) (test code = 06170-6) LYNDSAY (test code = LYNDSAY) ?Left?Ventricle: Left [...] mL of Definity ultrasound enhancing agent used. [facility] 18:16:22* Test Item Value Reference Range Interpretation Comme nts Height (test code = 2604443141) 63 in Weight (test code = 6786557188) 208 lbs Systolic BP (test code = 5083445943) 146 mmHg Diastolic BP (test code = 5295407528) 103 mmHg Heart Rate (test code = 7607061438) 112 bpm BSA (test code = 7066000191) 1.97 m2 LVOT diameter (test code = 8863097173) 2.5 cm LVOT area (test code = 7284331088) 5.00 cm2 LA size (test code = 9354599541) 4.2 cm MV Peak E Evette (test code = 1888806868) 128.5 cm/s MV Peak A Evette (test code = 7025538312) 62.4 cm/s E/A ratio (test code = 5129290166) 2.06 ratio E wave decelartion time (test code = 7971748220) 0.12 s MV Prop V (test code = 5633547570) 38.00 cm/s LAV(MOD-sp4) (test code = 2605708986) 68.70 mL Tapse (test code = 4738101278) 0.7 cm LA Volume Index (BP) (test code = 3678143492) 34.6 mL/m2 LA volume (BP) (test code = 7932547095) 68.0 mL LAV(MOD-sp2) (test code = 8721403913) 66.30 mL Ao peak evette (test code = 6830011787) 124.9 cm/s Ao max PG (test code = 9986091180) 6.20 mm[Hg] AV peak gradient (test code = 7808897031) 6.2 mmHg LVOT stroke volume (test code = 1788109822) 42.40 cm3 LVOT peak evette (test code = 7961719930) 67.8 cm/s LVOT mn grad (test code = 1640154615) 0.9 mmHg AV LVOT peak gradient (test code = 8838501281) 1.84 mmHg LVOT peak VTI (test code = 2347695996) 8.4 cm AV area peak evette (test code = 0107716536) 2.7 cm2 LV V1 mean (test code = 9826948060) 43.20 cm/s TR Peak Evette (test code = 6503904764) 247.7 cm/s Triscuspid Valve Regurgitation Peak Gradient (test code = 0562890531) 24.5 mmHg MR max PG (test code = 3078178695) 85.20 mm[Hg] MR max evette (test code = 4156594037) 461.50 cm/s Mr max evette (test code = 4964670569) 461.5 m/s AV regurgitation pressure 1/2 time (test code = 5587187762) 305.5 ms AI dec slope (test code = 5810077540) 432.10 cm/s2 AI max evette (test code = 2294762285) 450.60 cm/s AI max PG (test code = 8311065985) 81.20 mm[Hg] LVIDD (test code = 5293171512) 5.00 cm Left Ventricular End Diastolic Volume by Teichholz Method (test code = 7876543) 116.6 mL IVS (test code = 5408113799) 0.93 cm Interventricular Septum Diastolic Thickness by 2D (test code = 7458437) 0.93 cm LVPWD (test code = 8147502680) 1.00 cm PW (test code = 1774718983) 1.00 cm 0.6-1.1 EF(Teich) (test code = 0026985219) 33.90 % LVIDS (test code = 9935331488) 4.20 cm Left Ventricular End Systolic Volume by Teichholz Method (test code = 2465567) 77.1 mL FS (test code = 3612008301) 16 % EF - 2D (test code = 13849334) 33.90 % Radiology Study observation (narrative) (test code = 56058-4) LYNDSAY (test code = LYNDSAY) ?Left?Ventricle: Left [...] mL of Definity ultrasound enhancing agent used. [facility] Acid Whole [id number] 17:29:30* Test Item Value Reference Range Interpretation Comme nts LACTIC ACID (test code = 0072303654) 4.00 mmol/L 0.50-2.20 H QUES Lab Interpretation (test cod e = 25742-4) Abnormal [facility] Acid Whole Wkbhv5011-71-92 17:29:30* Test Item Value Reference Range Interpretation Comme nts LACTIC ACID (test code = 4015082271) 4.00 mmol/L 0.50-2.20 H QUES Lab Interpretation (test cod e = 11294-2) Abnormal [facility] Acid Whole [id number] 17:29:30* Test Item Value Reference Range Interpretation Comme nts LACTIC ACID (test code = 0732190119) 4.00 mmol/L 0.50-2.20 H QUES Lab Interpretation (test cod e = 66506-3) Abnormal [facility] GLUCOSE (AUTOMATED)2023-11-22 17:01:27* Test Item Value Reference Range Interpretation Comme nts POCT GLU (test code = 2204801773) 152 mg/dL 70-110 H Notified Provide r Lab Interpretation (test code = 28163-1) Abnormal [facility] GLUCOSE (AUTOMATED)2023-11-22 17:01:27* Test Item Value Reference Range Interpretation Comme nts POCT GLU (test code = 6254197165) 152 mg/dL 70-110 H Notified Provide r Lab Interpretation (test code = 23070-7) Abnormal [facility] GLUCOSE (AUTOMATED)2023-11-22 17:01:27* Test Item Value Reference Range Interpretation Comme nts POCT GLU (test code = 0918848165) 152 mg/dL 70-110 H Notified Provide r Lab Interpretation (test code = 56126-2) Abnormal [facility] Fwmqi7001-13-57 16:28:02* Test Item Value Reference Range Interpretation Comme nts IRON (test code = 1164172258) 44 ug/dL 50-160 L TIBC (test code = 8125932843) 395 ug/dL 250-410 % FE SAT (test code = 3417598587) 11 % 20-50 L Lab Interpretation (test cod e = 09302-6) Abnormal [facility] Hedag5167-75-23 16:28:02* Test Item Value Reference Range Interpretation Comme nts IRON (test code = 7057868017) 44 ug/dL 50-160 L TIBC (test code = 7702969916) 395 ug/dL 250-410 % FE SAT (test code = 9493707404) 11 % 20-50 L Lab Interpretation (test cod e = 06741-6) Abnormal [facility] Atepy4116-77-27 16:28:02* Test Item Value Reference Range Interpretation Comme nts IRON (test code = 6128394055) 44 ug/dL 50-160 L TIBC (test code = 9920769614) 395 ug/dL 250-410 % FE SAT (test code = 4500072156) 11 % 20-50 L Lab Interpretation (test cod e = 26481-7) Abnormal [facility]. Metabolic Panel (41080)2023-11-22 16:20:58* Test Item Value Reference Range Interpretation Comme nts NA (test code = 5346204998) 135 mmol/L 135-145 K (test code = 8646490373) 4.0 mmol/L 3.5-5.0 Slight hemolysis CL (test code = 4718710525) 108 mmol/L 98-108 CO2 TOTAL (test code = 9669941711) 20 mmol/L 23-31 L AGAP (test code = 4381736720) 7 2-16 BUN (test code = 2931807604) 20 mg/dL 7-23 Slight hemolysis GLUCOSE (test code = 9435285596) 136 mg/dL 70-110 H CREATININE (test code = 2160-0) 0.48 mg/dL 0.50-1.04 L TOTAL BILI (test code = 7656291561) 0.8 mg/dL 0.1-1.1 CALCIUM (test code = 7679822538) 6.7 mg/dL 8.6-10.6 L T PROTEIN (test code = 6660967808) 5.6 g/dL 6.3-8.2 L ALBUMIN (test code = 2012821211) 3.1 g/dL 3.5-5.0 L ALK PHOS (test code = 4735910340) 282 U/L 34-122 H Slight hemolysis ALTv (test code = 1742-6) 196 U/L 5-35 H AST(SGOT) (test code = 1028107950) 56 U/L 13-40 H Slight hemolysis eGFR (test code = 92684-6) 114.8 mL/min/1.73m2 CKD-EPI eGFR (2020). Assuming creatinine has been stable day-to-day for at least three months, the eGFR indicates Category G1 (>= 90 mL/min/1.73 m2) Lab Interpretation (test code = 44150-2) [facility] (56284)2023-11-22 16:20:58* Test Item Value Reference Range Interpretation Comme nts NA (test code = 3224954002) 135 mmol/L 135-145 K (test code = 9906768075) 4.0 mmol/L 3.5-5.0 Slight hemolysis CL (test code = 6943688466) 108 mmol/L 98-108 CO2 TOTAL (test code = 6542029115) 20 mmol/L 23-31 L AGAP (test code = 1971786079) 7 2-16 BUN (test code = 3764224035) 20 mg/dL 7-23 Slight hemolysis GLUCOSE (test code = 1774719535) 136 mg/dL 70-110 H CREATININE (test code = 2160-0) 0.48 mg/dL 0.50-1.04 L TOTAL BILI (test code = 9788465036) 0.8 mg/dL 0.1-1.1 CALCIUM (test code = 2282245547) 6.7 mg/dL 8.6-10.6 L T PROTEIN (test code = 1863746313) 5.6 g/dL 6.3-8.2 L ALBUMIN (test code = 9288059783) 3.1 g/dL 3.5-5.0 L ALK PHOS (test code = 1279552860) 282 U/L 34-122 H Slight hemolysis ALTv (test code = 1742-6) 196 U/L 5-35 H AST(SGOT) (test code = 4282711080) 56 U/L 13-40 H Slight hemolysis eGFR (test code = 98870-4) 114.8 mL/min/1.73m2 CKD-EPI eGFR (2020). Assuming creatinine has been stable day-to-day for at least three months, the eGFR indicates Category G1 (>= 90 mL/min/1.73 m2) Lab Interpretation (test code = 16242-4) Abnormal [facility]. Metabolic Panel (25273)2023-11-22 16:20:58* Test Item Value Reference Range Interpretation Comme nts NA (test code = 5210697542) 135 mmol/L 135-145 K (test code = 0242345532) 4.0 mmol/L 3.5-5.0 Slight hemolysis CL (test code = 9027715056) 108 mmol/L 98-108 CO2 TOTAL (test code = 7617666263) 20 mmol/L 23-31 L AGAP (test code = 5995510649) 7 2-16 BUN (test code = 0136963198) 20 mg/dL 7-23 Slight hemolysis GLUCOSE (test code = 8324455753) 136 mg/dL 70-110 H CREATININE (test code = 2160-0) 0.48 mg/dL 0.50-1.04 L TOTAL BILI (test code = 1804336868) 0.8 mg/dL 0.1-1.1 CALCIUM (test code = 6199652717) 6.7 mg/dL 8.6-10.6 L T PROTEIN (test code = 0573249861) 5.6 g/dL 6.3-8.2 L ALBUMIN (test code = 6133826535) 3.1 g/dL 3.5-5.0 L ALK PHOS (test code = 9819623984) 282 U/L 34-122 H Slight hemolysis ALTv (test code = 1742-6) 196 U/L 5-35 H AST(SGOT) (test code = 5101082422) 56 U/L 13-40 H Slight hemolysis eGFR (test code = 77097-9) 114.8 mL/min/1.73m2 CKD-EPI eGFR (2020). Assuming creatinine has been stable day-to-day for at least three months, the eGFR indicates Category G1 (>= 90 mL/min/1.73 m2) Lab Interpretation (test code = 42540-2) [facility] [id number] 15:51:03PROCEDURE: CT ANGIO CHEST WITH CONTRAST - [...] cholecystectomy. A left adrenal 2.7cm nodule suspected. [facility] [id number] 15:51:03PROCEDURE: CT ANGIO CHEST WITH CONTRAST - [...] cholecystectomy. A left adrenal 2.7cm nodule suspected. [facility] Acid Whole Awstj6768-88-54 14:33:11* Test Item Value Reference Range Interpretation Comme nts LACTIC ACID (test code = 2736983980) 4.04 mmol/L 0.50-2.20 H QUES Lab Interpretation (test cod e = 70605-9) Abnormal [facility] Acid Whole [id number] 14:33:11* Test Item Value Reference Range Interpretation Comme nts LACTIC ACID (test code = 9267207178) 4.04 mmol/L 0.50-2.20 H QUES Lab Interpretation (test cod e = 73554-1) [facility] Cqtcg9150-17-52 14:33:11* Test Item Value Reference Range Interpretation Comme nts LACTIC ACID (test code = 2746554191) 4.04 mmol/L 0.50-2.20 H QUES Lab Interpretation (test cod e = 44169-7) Abnormal [facility] GLUCOSE (AUTOMATED)2023-11-22 13:26:51* Test Item Value Reference Range Interpretation Comme nts POCT GLU (test code = 3059470801) 180 mg/dL 70-110 H Notified Provide r Lab Interpretation (test code = 36575-4) Abnormal [facility] GLUCOSE (AUTOMATED)2023-11-22 13:26:51* Test Item Value Reference Range Interpretation Comme nts POCT GLU (test code = 5022389426) 180 mg/dL 70-110 H Notified Provide r Lab Interpretation (test code = 27737-0) [facility]normal [facility]2023-[facility]-22 13:26:51* Test Item Value Reference Range Interpretation Comme nts POCT GLU (test code = 4772966018) 180 mg/dL 70-110 H Notified Provide r Lab Interpretation (test code = 91228-1) [facility]normal [facility]+ VW [id number] 09:05:30 Exam: XR SHOULDER 2+ VW RIGHT, 11/22/2023 1:45 AM. Ordering Physician: IVIS MCDERMOTT. History: R arm injury . Technique: Routine view(s) XR SHOULDER 2+ VW RIGHT. Comparison: None. Findings: No evidence of traumatic malalignment. No acute fracture. 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 Eburnation of thegreater tuberosity, sequela of chronic rotator cuff injury. No focalsofttissue swelling. Lungs are clear as visualized. Cervical fusion. [facility]+ VW [id number] 09:05:30 Exam: XR SHOULDER 2+ VW RIGHT, 11/22/2023 1:45 AM. Ordering Physician: IVIS MCDERMOTT. History: R arm injury . Technique: Routine view(s) XR SHOULDER 2+ VW RIGHT. Comparison: None. Findings: No evidence of traumatic malalignment. No acute fracture. 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 Eburnation of thegreater tuberosity, sequela of chronic rotator cuff injury. No focalsofttissue swelling. Lungs are clear as visualized. Cervical fusion. [facility] LOWER EXTREMITY VEIN WITH COMPRESSION [...] waveforms on the right. No DVT on theleft.[facility] CenterUS LOWER EXTREMITY VEIN WITH COMPRESSION [...] waveforms on the right. No DVT on theleft.[facility] CenterLactic Acid Whole Blood 2023-11-22 08:16:23* Test Item Value Reference Range Interpretation Comme [facility] LACTIC ACID (test code = 1154491867) 3.93 mmol/L 0.50-2.20 H Lab Interpretation (test cod e = 10475-9) Abnormal [facility] CenterL[facility] Acid Whole Ajvkp3937-08-38 08:16:23* Test Item Value Reference Range Interpretation Comme [facility] LACTIC ACID (test code = 4361015077) 3.93 mmol/L 0.50-2.20 H Lab Interpretation (test cod e = 31654-9) Abnormal [facility] CenterL[facility] Acid Whole [id number] 08:16:23* Test Item Value Reference Range Interpretation Comme [facility] LACTIC ACID (test code = 5359937650) 3.93 mmol/L 0.50-2.20 H Lab Interpretation (test cod e = 49170-7) Abnormal [facility] CenterProthrombin Time / [id number] 05:00:31* Test Item Value Reference Range Interpretation Comme [facility] PROTIME PATIENT (test code = 5964-2) 15.4 10.1-12.6 H INR (test code = 6301-6) 1.3 Normal INR <1.1; Warfarin Therapeutic range 2.0 to 3.0 or 2.5 to 3.5, depending upon the indications. Lab Interpretation (test code = 59569-0) Abnormal [facility] CenteraPTT2024-05-05 05:00:31* Test Item Value Reference Range Interpretation Comme nts APTT Patient (test code = 3173-2) LYNDSAY (test code = LYNDSAY) The [facility] patient population mean normal value for aPTT is 30 seconds. Lab Interpretation (test code = 39144-6) Normal [facility] CenterProthrombin Time / [id number] 05:00:31* Test Item Value Reference Range Interpretation Comme nts PROTIME PATIENT (test code = 5964-2) 15.4 10.1-12.6 H INR (test code = 6301-6) 1.3 Normal INR <1.1; Warfarin Therapeutic range 2.0 to 3.0 or 2.5 to 3.5, depending upon the indications. Lab Interpretation (test code = 65133-7) [facility]* Test Item Value Reference Range Interpretation Comme nts APTT Patient (test code = 3173-2) LYNDSAY (test code = LYNDSAY) The [facility] patient population mean normal value for aPTT is 30 seconds. Lab Interpretation (test code = 27117-2) Normal [facility] CenterProthrombin Time / [id number] 05:00:31* Test Item Value Reference Range Interpretation Comme nts PROTIME PATIENT (test code = 5964-2) 15.4 10.1-12.6 H INR (test code = 6301-6) 1.3 Normal INR <1.1; Warfarin Therapeutic range 2.0 to 3.0 or 2.5 to 3.5, depending upon the indications. Lab Interpretation (test code = 99499-1) [facility]normal [facility]eraPTT2024-[facility]-05 05:00:31* Test Item Value Reference Range Interpretation Comme nts APTT Patient (test code = 3173-2) 27 26-36 LYNDSAY (test code = LYNDSAY) The [facility] patient population mean normal value for aPTT is 30 seconds. Lab Interpretation (test code = 55994-0) Normal [facility] CenterThyroid Stimulating Hlkvrob9879-05-57 04:25:31 * Test Item Value Reference Range Interpretation Comme nts TSH (test code = 9135942191) 5.26 0.45-4.70 H Lab Interpretation (test cod e = 99437-4) Abnormal [facility] CenterThyroid Stimulating Iqysvcq6394-60-28 04:25:31 * Test Item Value Reference Range Interpretation Comme nts TSH (test code = 4652233773) 5.26 0.45-4.70 H Lab Interpretation (test cod e = 31794-0) Abnormal [facility] CenterThyroid Stimulating Oratlzn7187-49-34 04:25:31 * Test Item Value Reference Range Interpretation Comme nts TSH (test code = 9508114410) 5.26 0.45-4.70 H Lab Interpretation (test cod e = 72129-0) Abnormal [facility] Bqwx0535-42-85 04:18:14Megan Rondon MD ? ? 11/21/2023 11:18 PMCritical Care Performed by: Megan Rondon [facility] SYSTEMuthorized by: Megan Rondon MD ?Critical care provider [...] of separately billable procedures and treating other patients.[facility] [id number] 04:11:28* Test Item Value Reference Range Interpretation Comme nts FREE T4 (test code = 4078983366) 1.07 0.78-2.20 Lab Interpretation (test cod e = 73457-9) Normal [facility] [id number] 04:11:28* Test Item Value Reference Range Interpretation Comme nts FREE T4 (test code = 0055054165) 1.07 0.78-2.20 Lab Interpretation (test cod e = 74797-9) Normal [facility] [id number] 04:11:28* Test Item Value Reference Range Interpretation Comme nts FREE T4 (test code = 8344294829) 1.07 0.78-2.20 Lab Interpretation (test cod e = 16079-3) Normal [facility] CHEST 1 [id number] 03:22:56Exam: Chest (1 View), 11/21/2023 9:15 PM. Ordering Physician: MEGAN RONDON. History: Chest pain. Technique: One view of the chest. Comparison: 12/11/2022. Findings: Cardiac silhouette is moderately enlarged. There is no pneumothorax. Thereis no consolidation or pleural effusion. Stable mild diffuse interstitialopacities are noted. Pleural and diaphragmatic contours are normal. Changesof anterior ce rvical discectomy and fusion are seen.[facility] CHEST 1 [id number] 03:22:56Exam: Chest (1 View), 11/21/2023 9:15 PM. Ordering Physician: MEGAN RONDON. History: Chest pain. Technique: One view of the chest. Comparison: 12/11/2022. Findings: Cardiac silhouette is moderately enl arged. There is no pneumothorax. Thereis no consolidation or pleural effusion. Stable mild diffuse interstitialopacities are noted. Pleural and diaphragmatic contours are normal. Changesof anterior cervical discectomy and fusion are seen. [facility] BranchRADIOLOGY [id number] 18:34:06 Ordered by an unspecified provider.[facility] CenterRADIOLOGY RNXTXOCECUWYL2423-77-01 19:18:01Ordered by an unspecified provider.[facility] CenterBLOOD [id number] 07:00:10* Test Item Value Reference Range Interpretation Comme nts CULTURE (BEAKER) (test code = 1095) No growth in 5 days XR KNEE 3 VIEWS LEFT Non-Weight Smmzebj7435-87-70 09:27:00XR KNEE 3 VIEWS LEFT CLINICAL INDICATION: S/p fall COMPARISON: None FINDINGS: 3views of the left kne e. There is no fracture or malalignment. The femorotibial andfemoropatellar joint spaces are intact. No joint fluid is demonstrated.Surrounding soft tissues are unremarkable. Scattered atheroscleroticvascular calcifications.[facility]XR [facility]IEWS [id number] 09:27:00 [facility] 1970 Sex: FXR KNEE 3 VIEWS LEFT CLINICAL INDICATION: S/p fall COMPARISON: NoneFINDINGS: 3views of the left knee.There is no fracture or malalignment. The femorotibial andfemoropatellar joint spaces are intact.No joint fluid is demonstrated.Surrounding soft tissues are unremarkable. Scattered atheroscleroticvascular calcifications.IMPRESSION: No acute fracture or malalignment of the knee Electronically Signed By: Maxim Sultana09/08/2023 09:29 CDTWorkstation Name: [id number]-Rcjjcje oaick5495-37-80 08:53:50* Test Item Value Reference Range Interpretation Comme nts POC-Glucose Meter (test code = 1538) 101 mg/dL 70-110 : TESTED AT [facility] [address] [facility], [address]: Pigment Presser/Supervisor Alteration Workroom ID = [id number] for Marie Delacruz Lab Interpretation (test code = 01196-4) [facility] [id number] 08:53:50* Test Item Value Reference Range Interpretation Comme nts POC-GLUCOSE METER (BEAKER) (test code = 1538) 101 mg/dL 70-110 : TESTED AT [facility] [address] [facility], [address]: Pigment Presser/Supervisor Alteration Workroom ID = [id number] for Marie Delacruz BASIC METABOLIC [id number] 05:40:45* Test Item Value Reference Range Interpretation [...] GFR is not applicable for dialysis patients Pigment Presser ID - [id number] 05:40:45* Test Item Value Reference Range Interpretation Comme nts MAGNESIUM (BEAKER) (test cod e = 627) 2.1 mg/dL 1.6-2.6 Pigment Presser ID - [id number] 05:40:45* Test Item Value Reference Range Interpretation Comme nts PHOSPHORUS (BEAKER) (test co de = 604) 5.0 mg/dL 2.3-4.7 H Pigment Presser ID - ADMINCBC W/PLT COUNT & AUTO [id number] 04:49:23* Test Item Value Reference Range Interpretation [...] code = 2801) 0.40 % 0.00-1.00 POCT-GLUCOSE [id number] 21:40:23* Test Item Value Reference Range Interpretation Comme nts POC-GLUCOSE METER (BEAKER) (test code = 1538) 144 mg/dL 70-110 H : TESTED AT [facility] [address] [facility], [address]: Pigment Presser/Supervisor Alteration Workroom ID = [id number] for Baeza, Diana Venous doppler legs onkibvaod0435-90-75 14:27:12PV LAB - Lower Extremities DVT Study Demographics Patient Name YUE ROMERO Date of Study 09/07/2023 [place] Age 53 Visit Number [id number] Gender Female Accession Number [id number] Dateof 1970 Referring EDWARD FARRELL Room Number 2263 Physician Tile Helper Adalberto Wood Interpreting John Solorio, Physician FellowProcedureType [...] in cm/s ; Diameters are measured in [facility] [id number] 04:05:54* Test Item Value Reference Range Interpretation Comme nts MAGNESIUM (BEAKER) (test code = 627) 2.0 mg/dL 1.6-2.6 Specimen sligh tly hemolyzed Pigment Presser ID Yarelis CORREA [id number] 04:05:54* Test Item Value Reference Range Interpretation Comme nts PHOSPHORUS (BEAKER) (test code = 604) 4.5 mg/dL 2.3-4.7 Specimen sligh tly hemolyzed Pigment Presser ID Yarelis CORREA WBASIC METABOLIC [id number] 04:05:54* Test Item Value Reference Range Interpretation [...] GFR is not applicable for dialysis patients Pigment Presser GEOVANNA CORREA WCBC W/PLT COUNT & AUTO [id number] 03:40:48* Test Item Value Reference Range Interpretation [...] code = 2801) 0.30 % 0.00-1.00 POCT-GLUCOSE [id number] 21:28:35* Test Item Value Reference Range Interpretation Comme nts POC-GLUCOSE METER (BEAKER) (test code = 1538) 127 mg/dL 70-110 H : TESTED AT [facility] [address] [facility], [address]: Pigment Presser/Supervisor Alteration Workroom ID = [id number] for Ryan Morin POCT-GLUCOSE HUQJC7492-97-38 18:49:21* Test Item Value Reference Range Interpretation Comme nts POC-GLUCOSE METER (BEAKER) (test code = 1538) 122 mg/dL 70-110 H : TESTED AT [place] [id number] [facility], [address]: Pigment Presser/Supervisor Alteration Workroom ID = [id number] for Lauren Santillan POCT-GLUCOSE [id number] 13:27:27* Test Item Value Reference Range Interpretation Comme nts POC-GLUCOSE METER (BEAKER) (test code = 1538) 130 mg/dL 70-110 H : TESTED AT [facility] [address] [facility], [address]: Pigment Presser/Supervisor Alteration Workroom ID = [id number] for Lauren Santillan [id number] 09:09:14* Test Item Value Reference Range Interpretation Comme nts MAGNESIUM (BEAKER) (test cod e = 627) 2.2 mg/dL 1.6-2.6 [id number] 09:09:14* Test Item Value Reference Range Interpretation Comme nts PHOSPHORUS (BEAKER) (test co de = 604) 4.8 mg/dL 2.3-4.7 H BASIC METABOLIC [id number] 09:09:14* Test Item Value Reference Range Interpretation [...] is not applicable for dialysis patients POCT-GLUCOSE [id number] 08:33:30* Test Item Value Reference Range Interpretation Comme nts POC-GLUCOSE METER (BEAKER) (test code = 1538) 132 mg/dL 70-110 H : TESTED AT [facility] [address] [facility], [id number]: Pigment Presser/Supervisor Alteration Workroom ID = [id number] for Lauren Santillan CBC W/PLT COUNT & AUTO [id number] 05:47:59* Test Item Value Reference Range Interpretation [...] code = 2801) 0.40 % 0.00-1.00 POCT-GLUCOSE [id number] 21:35:37* Test Item Value Reference Range Interpretation Comme nts POC-GLUCOSE METER (BEAKER) (test code = 1538) 129 mg/dL 70-110 H : TESTED AT [facility] [address] [facility], [address]: Pigment Presser/Supervisor Alteration Workroom ID = [id number] for Ryan Morin MR Brain Without & With IV Dwrrclmg2707-06-12 15:49:58MR BRAIN WITH & WITHOUT IV CONTRAST [...] limits. No obstructive paranasal sinus disease. Additionalfindings: None.[facility] CenterMR [facility] WITH & WITHOUT IV [id number] 15:49:58 [facility] 1970 Sex: [...] Signed By: Zeinab Dempsey09/05/2023 15:53 CDTWorkstation Name: [id number] METER 2023-09-05 08:34:25* Test Item Value Reference Range Interpretation Comme nts POC-GLUCOSE METER (BEAKER) (test code = 1538) 115 mg/dL 70-110 H : TESTED AT [facility] [address] [place] [place], [address]: Pigment Presser/Supervisor Alteration Workroom ID = [id number] for DOMINGA AMADOR BASIC METABOLIC [id number] 06:06:56* Test Item Value Reference Range Interpretation [...] GFR is not applicable for dialysis patients Pigment Presser ID - [id number] 06:06:56* Test Item Value Reference Range Interpretation Comme nts MAGNESIUM (BEAKER) (test cod e = 627) 2.2 mg/dL 1.6-2.6 Pigment Presser ID - [id number] 06:06:56* Test Item Value Reference Range Interpretation Comme nts PHOSPHORUS (BEAKER) (test co de = 604) 3.8 mg/dL 2.3-4.7 Pigment Presser ID - ADMINCBC W/PLT COUNT & AUTO [id number] 05:29:32* Test Item Value Reference Range Interpretation [...] code = 2801) 0.50 % 0.00-1.00 POCT-GLUCOSE [id number] 04:55:18* Test Item Value Reference Range Interpretation Comme nts POC-GLUCOSE METER (BEAKER) (test code = 1538) 99 mg/dL 70-110 : TESTED AT [facility] [address] [facility], [address]: Pigment Presser/Supervisor Alteration Workroom ID = [id number] for Rosa Morinbubba POCT-GLUCOSE [id number] 21:49:23* Test Item Value Reference Range Interpretation Comme nts POC-GLUCOSE METER (BEAKER) (test code = 1538) 124 mg/dL 70-110 H : TESTED AT [facility] [address] [facility], [address]: Pigment Presser/Supervisor Alteration Workroom ID = [id number] for Ryan Morin POCT-GLUCOSE [id number] 15:55:53* Test Item Value Reference Range Interpretation Comme nts POC-GLUCOSE METER (BEAKER) (test code = 1538) 126 mg/dL 70-110 H : TESTED AT [facility] [address] [facility], [address]: Pigment Presser/Supervisor Alteration Workroom ID = [id number] for Tramaine Daniels [id number] 12:37:56* Test Item Value Reference Range Interpretation Comme nts PROCALCITONIN (BEAKER) (test code = 3036) < ng/mL <0.05 SEPSIS RISK (ng/mL)Low: 0.05-0.50Intermediate: 0.51-2.00High: >=2.01SARS- CoV2/Influenza/RSV [id number] 12:18:09* Test Item Value Reference Range Interpretation Comments SARS-COV2/RT-PCR (test code = 62362-7) Negative Negative The SARS-CoV-2 target nucleic acids [...] provider. Influenza A RT-PCR (test code = 75448-6) Negative Negative The Flu A target nucleic acids are not detected in this specimen. Influenza B RT-PCR (test code = 37759-6) Negative Negative The Flu B target nucleic acids are not detected in this specimen. RSV by RT-PCR (test code = 43304-3) Negative Negative The RSV target nucleic acids [...] the Act. Fact Sheet for Healthcare Providers:https://w Armor5/Docu ments/Xpert%20Xpres s%20SARS%20CoV-2/Fa ct%20Sheets/302-390 2%93RQMQ-DGC-7%20HE ALTHCARE%20PROVIDER S%20FACT%20SHEET.pd f Fact Sheet for Healthcare Patients:https://maria elena [employer]ell/Docum ents/Xpert%20Xpress %20SARS%20Cov-2/Fac t%20Sheets/302-3801 %92MFLE-RNL-5%20PAT IENT%20FACT%20SHEET .pdf Lab Interpretation (test code = 33891-1) Normal [facility] CenterARS-[facility]OV2/INFLUENZA/RSV [id number] 12:18:09* Test Item Value Reference Range Interpretation Comme nts SARS-COV2/RT-PCR (test code = 7618326) Negative Negative The SARS-CoV-2 t arget nucleic [...] provider. INFLUENZA A RT-PCR (test code = 6673584) Negative Negative The Flu A target nucleic acids are not detected in this specimen. INFLUENZA B RT-PCR (test code = 1954655) Negative Negative The Flu B target nucleic acids are not detected in this specimen. RSV RT-PCR (test code = 2056074) Negative Negative The RSV target n ucleic [...] SARS-CoV-2/Flu/RSV by their healthcare provider. Results from [facility] Xpert Xpress SARS-CoV-2/Flu/RSV test should be [...] 564(g) of the Act.Fact Sheet for Healthcare Providers:https://www.[employer]/Documents/Xpert%20Xpress%20SARS%20CoV-2/Fact%2 0Sheets/3023902%15XKGF-KKJ-1%20HEALTHCARE%20PROVIDERS%20FACT%20SHEET.pdfFact Sheet for Healthcare Patients:https://ww w.[employer]/Documents/Xpert%20Xpress%20SARS%20Cov-2/Fact%20Sheets/3023801%20S ARS-COV-2%20PATIENT%20FACT%20SHEET.pdfPOCT-GLUCOSE [id number] 11:08:35* Test Item Value Reference Range Interpretation Comme nts POC-GLUCOSE METER (BEAKER) (test code = 1538) 111 mg/dL 70-110 H : TESTED AT [facility] [address] [facility], [address]: Pigment Presser/Supervisor Alteration Workroom ID = [id number] for HemLeon montgomeryConstance POCT-GLUCOSE [id number] 08:16:42* Test Item Value Reference Range Interpretation Comme nts POC-GLUCOSE METER (BEAKER) (test code = 1538) 108 mg/dL 70-110 : TESTED AT [facility] [address] [facility], [address]: Pigment Presser/Supervisor Alteration Workroom ID = [id number] for Beata Vargas MR spine lumbar without IV [id number] 07:58:49MR LUMBAR SPINE WITHOUT IV CONTRAST, MR [...] Posterior ligament ossifications at the calcifications at M75-J84jgttrap moderate spinal canal stenosisPosterior disc osteophyte at the T11-T12 level causing mild spinal canalstenosis The spinal cord is normal in caliber and signal intensity. There is no significant foraminal or spinal canal stenosis. 2.1 x 2.3 cm left adrenal nodule, incompletely characterized Paraspinal soft tissues are unremarkable. Lumbar spine: Postoperative changes from posterior decompression at the L3 and K8fuhdgj. A 1.3 x 1.5 cm (AP by [...] neural foraminal stenosisCHI St [facility] CenterMR thoracic spine without IV vjelgpmx9420-79-04 07:58:49MR LUMBAR SPINE WITHOUT IV CONTRAST, MR [...] Posterior ligament ossifications at the calcifications at Z70-M61cmmukoa moderate spinal canal stenosisPosterior disc osteophyte at the T11-T12 level causing mild spinal canalstenosis The spinal cord is normal in caliber and signal intensity. There is no significant foraminal or spinal canal stenosis. 2.1 x 2.3 cm left adrenal nodule, incompletely characterized Paraspinal soft tissues are unremarkable. Lumbar spine: Postoperative changes from posterior decompression at the L3 and R0aelusf. A 1.3 x 1.5 cm (AP by [...] facet arthropathy with moderatebilateral neural foraminal stenosisCHI [facility] HospitalMR spine cervical without IV izsutfgo2261-88-67 07:58:49MR LUMBAR SPINE WITHOUT IV CONTRAST, MR [...] Posterior ligament ossifications at the calcifications at H79-I70sugjamt moderate spinal canal stenosisPosterior disc osteophyte at the T11-T12 level causing mild spinal canalstenosis The spinal cord is normal in caliber and signal intensity. There is no significant foraminal or spinal canal stenosis. 2.1 x 2.3 cm left adrenal nodule, incompletely characterized Paraspinal soft tissues are unremarkable. Lumbar spine: Postoperative changes from posterior decompression at the L3 and B1gcfmzn. A 1.3 x 1.5 cm (AP by [...] facet arthropathy with moderatebilateral neural foraminal stenosisCHI [facility] HospitalMR CERVICAL SPINE WITHOUT IV [id number] 07:58:49 [facility] : 1970 [...] ligament ossifications at the calcifications at T10- D26weeyljr moderate spinal canal stenosisPosterior disc osteophyte at the T11- T12 level causing mild spinal canalstenosisThe spinal cord is normal in caliber and signal intensity. There is no significant foraminal or spinal canal stenosis.2.1 x 2.3 cm left adrenal nodule, incompletely characterizedParaspinal soft tissues are unremarkable.Lumbar spine:Postoperative changes from posterior decompression at the L3 and C0zxqydi. A 1.3 x 1.5 cm (AP by [...] Signed By: Maxim Sultana09/04/2023 08:00 CDTWorkstation Name: [id number] THORACIC SPINE WITHOUT IV [id number] 07:58:49 [facility] YUE HEATHERGRACIELA MCCABE : [...] spine.Posterior ligament ossifications at the calcifications at H99-D74oxlfwxi moderate spinal canal stenosisPosterior disc osteophyte at the T11-T12 level causing mild spinal canalstenosisThe spinal cord is normal in caliber and signal intensity. There is no significant foraminal or spinal canal stenosis.2.1 x 2.3 cm left adrenal nodule, incompletely characterizedParaspinal soft tissues are unremarkable.Lumbar spine:Postoperative changes from posterior decompression at the L3 and O4ictngx. A 1.3 x 1.5 cm (AP by [...] Signed By: Maxim Sultana09/04/2023 08:00 CDTWorkstation Name: [id number] LUMBAR SPINE WITHOUT IV [id number] 07:58:49 [facility]ENTER[facility] : 1970 [...] spine.Posterior ligament ossifications at the calcifications at D35-N01pvwggws moderate spinal canal stenosisPosterior disc osteophyte at the T11-T12 level causing mild spinal canalstenosisThe spinal cord is normal in caliber and signal intensity. There is no significant foraminal or spinal canal stenosis.2.1 x 2.3 cm left adrenal nodule, incompletely characterizedParaspinal soft tissues are unremarkable.Lumbar spine:Postoperative changes from posterior decompression at the L3 and M8lssboj. A 1.3 x 1.5 cm (AP by [...] Signed By: Maxim Sultana09/04/2023 08:00 CDTWorkstation Name: [id number] 07:46:14 * Test Item Value Reference Range Interpretation Comme nts FERRITIN (BEAKER) (test code = 361) 31.77 ng/mL 5.00-275.00 Pigment Presser ID - hgIRON, TIBC, % SAT. (WITHOUT FERRITIN)2023-09-04 07:24:52* Test Item Value Reference Range Interpretation Comme nts IRON (BEAKER) (test code = 547) 22.0 ug/dL 40.0-160.0 L TOTAL IRON BINDING CAPACITY (BEAKER) (test code = 769) 369 ug/dL 250-450 IRON % SATURATION (2) (BEAKE R) (test code = 2590) 6 % 20-55 L Pigment Presser ID - hgCT spine thoracic without IV scarnaqb2114-63-65 05:42:45EXAM: CT THORACIC SPINE WITHOUT IV CONTRAST, [...] Bones/alignment: Age- indeterminate nondisplaced fracture of the M5cswrjliql elements, predominantly involving the lamina and pinusprocess.. [...] Postoperative changes in themidline posterior lumbar soft tissues.[facility] CenterCT spine lumbar without IV mkgucdqr1347-99-55 05:42:45EXAM: CT THORACIC SPINE WITHOUT IV CONTRAST, [...] Bones/alignment: Age- indeterminate nondisplaced fracture of the X9sufronhac elements, predominantly involving the lamina and pinusprocess.. [...] Postoperative changes in themidline posterior lumbar soft tissues.[facility] CenterCT LUMBAR SPINE WITHOUT IV [id number] 05:42:45[facility] : 1970 Sex: [...] spine:Bones/alignment: Age- indeterminate nondisplaced fracture of the S8meejyyyja elements, predominantly i nvolving the lamina and [...] Signed By: Suzan Weaver09/04/2023 05:45 CDTWorkstation Name: [id number] THORACIC SPINE WITHOUT IV [id number] 05:42:45 [facility] : 1970 [...] spine:Bones/alignment: Age- indeterminate nondisplaced fracture of the C7cxpofkegk elements, predominantly i nvolving the lamina and [...] Signed By: Suzan Weaver09/04/2023 05:45 CDTWorkstation Name: [id number] 2023-09-04 04:44:34* Test Item Value Reference Range Interpretation Comme nts FIBRINOGEN LEVEL (BEAKER) (t est code = 658) 410 mg/dl 225-434 Urinalysis without Lqdtkinclzf5802-74-75 03:58:52* Test Item Value Reference Range Interpretation Comme nts Color, UA (test code = 5778-6) Light Yellow Clarity, UA (test code = 5767-9) Hazy Specific Gary, UA (test code = 5811-5) 1.017 1.001-1.035 pH, UA (test code = 5803-2) 6 5.0-8.0 Protein, UA (test code = 80329-7) 10 mg/dL Negative A Glucose, UA (test code = 365) Negative Negative Ketones, UA (test code = 2514-8) Trace Negative A Bilirubin, UA (test code = 34168-1) Negative Negative Blood, UA (test code = 24150-9) Trace Negative A Nitrite, UA (test code = 5802-4) Negative Negative Leukocytes, UA (test code = 5799-2) Negative Negative Urobilinogen, UA (test code = 01024-6) 0.2 0.2-1.0 Specimen Source (test code = 2795) LYNDSAY (test code = LYNDSAY) Pigment Presser ID - [auto]Pigment Presser ID - tech Lab Interpretation (test code = 85819-2) Abnormal [facility] HospitalURINALYSIS WITHOUT [id number] 03:58:52* Test Item Value Reference Range Interpretation [...] 0.2 0.2-1.0 SOURCE(BEAKER) (test code = 2795) Pigment Presser ID - [auto]Pigment Presser ID - techCBC W/PLT COUNT & AUTO [...] 2801) 0.70 % 0.00-1.00 Rapid drug screen, ntuor0984-73-06 02:20:15* Test Item Value Reference Range Interpretation Comme nts Barbiturate Screen (test code = 40910-4) Negative Negative Benzodiazepine Screen (test code = 92367-4) Negative Negative Cocaine (Metab.) Screen (test code = 3397-7) Positive Negative A Methadone Screen (test code = 34275-9) Negative Negative Opiate Screen (test code = 67296-5) Negative Negative Cannabinoid Screen (test code = 71847-7) Positive Negative A Amph/Methamph Screen (test code = 72956-8) Negative Negative Phencyclidine Screen (test code = 47039-1) Negative Negative pH, UA (test code = 5803-2) 6 5.0-8.0 LYNDSAY (test code = LYNDSAY) DRUG CUTOFF CONC.Cocaine 300 ng/mL Cannabinoid 50 ng/mLBenzodiazepine 200 ng/mLBarbiturate 200 ng/mLPhencyclidine 25 ng/mLOpiate 300 ng/mLMethadone 300 ng/mLAmphetamine/ 1000 ng/mL Methamphetamine This assay provides an unconfirmed qualitative test result for the clinical management of patients in emergency situations. Chain of custody not maintained. Some jzsg-mcy-mssethv medications, as well as adulterants, may cause inaccurate results. Clinical correlation should be applied. A more comprehensive drug screen or confirmation of a detected drug may be performed upon request.Pigment Presser ID - ADMIN Lab Interpretation (test code = 54543-6) Abnormal [facility] CenterRAPID DRUG SCREEN, [id number] 02:20:15* Test Item Value Reference Range Interpretation [...] situations. Chain of custody not maintained. Some wpuh-brj-oxkvjyc medications, as well as adulterants, may cause inaccurate results. Clinical correlation should be applied. A more comprehensive drug screen or confirmation of a detected drug may be performed upon request.Pigment Presser ID - ADMINB-TYPE NATRIURETIC FACTOR (BNP)2023-09-04 02:11:53* Test Item Value Reference Range Interpretation Comme nts B-TYPE NATRIURETIC PEPTIDE (BEAKER) (test code = 700) 1761 pg/mL 0-100 H Pigment Presser ID - ADMINLACTIC ACID, [id number] 02:10:37* Test Item Value Reference Range Interpretation Comme nts LACTATE BLOOD VENOUS (2) (BEAKER) (test code = 2872) 1.04 mmol/L 0.50-2.00 Specimen slightl y hemolyzed Pigment Presser ID - [id number] 02:04:37* Test Item Value Reference Range Interpretation Comme nts PHOSPHORUS (BEAKER) (test code = 604) 4.2 mg/dL 2.3-4.7 Specimen sligh tly hemolyzed Pigment Presser ID - ADMINCOMPREHENSIVE METABOLIC [id number] 02:04:37* Test Item Value Reference Range Interpretation [...] GFR is not applicable for dialysis patients Pigment Presser ID - ENNPJUZCNVHGLE5679-75-57 02:04:36* Test Item Value Reference Range Interpretation Comme nts MAGNESIUM (BEAKER) (test code = 627) 2.1 mg/dL 1.6-2.6 Specimen sligh tly hemolyzed Pigment Presser ID - [id number]-ZPPFC1657-90-16 01:45:13* Test Item Value Reference Range Interpretation [...] code = 760) 28.5 seconds 22.5-36.0 PROTHROMBIN TIME/[id number] 01:42:15* Test Item Value Reference Range Interpretation Comme nts PROTIME (BEAKER) (test code = 759) 15.8 seconds 11.9-14.2 H INR (BEAKER) (test code = 370) 1.25 <=5.90 RECOMMENDED COUMADIN/WARFARIN INR THERAPY RANGESSTANDARD DOSE: 2.0 - 3.0 Includes: PROPHYLAXIS for venous thrombosis, systemic embolization; TREATMENT for venous thrombosis and/or pulmonary embolus.HIGH RISK: Target INR is 2.5-3.5 for patients with mechanical heart valves.CDM-[id number] 00:00:00Ordered by an unspecified provider.[facility] HospitalLactic Acid Whole Blood 2023-08-12 20:51:22* Test Item Value Reference Range Interpretation Comme nts LACTIC ACID (test code = 1039548858) 1.56 mmol/L 0.50-2.20 Lab Interpretation (test cod e = 72425-6) [facility]BL[facility] KNILTBG2428-21-07 07:00:09* Test Item Value Reference Range Interpretation Comme nts CULTURE (BEAKER) (test code = 1095) No growth in 5 days T-SPOT(R).[id number] 18:35:00* Test Item Value Reference Range Interpretation Comme nts T-SPOT.TB (test code = 3111258) Negative SeeBelow Normal Value: Ne gativeA negative [...] CORRECTED FOR NEG CONTROL (test code = 8945466) 1 PANEL B SPOT COUNT CORRECTED FOR NEG CONTROL (test code = 20150905) 0 NEGATIVE CONTROL (test code = 20150906) Passed POSITIVE CONTROL (test code = 20150907) Passed LYNDSAY (test code = LYNDSAY) [id number] [facility] CenterT-SPOT(R).[id number] 18:35:00* Test Item Value Reference Range Interpretation Comme nts T-SPOT.TB (test code = 07775-7) Negative SeeBelow Normal Value: Ne gativeA negative [...] CORRECTED FOR NEG CONTROL (test code = 27878-4) 0 NEGATIVE CONTROL (test code = 18443-0) Passed POSITIVE CONTROL (test code = 69606-3) Passed LYNDSAY (test code = LYNDSAY) [id number] [facility] CenterTransesophageal apyu4188-14-19 13:41:18 Transesophageal Echocardiography Report (CHETAN) Demographics Patient Name YUE ROMERO Date of Study 06/16/2023 [place] Gender Female Visit Number [id number] Race Room Number 1055 Number Date of 1970 Referring Physician Age 53 year(s) Tile Helper Interpreting Physician Brian MDProcedure Type of Study [...] Tricuspid Valve Partially visualized. Pulmonic Valve Not visualized.[facility] CenterTransesophageal echo 2023-06-16 13:41:18Transesophageal Echocardiography Report (CHETAN) Demographics Patient Name YUE ROMERO Date of Study 06/16/2023 [place] Gender Female Visit Number [id number] Race Room Number 1055 Number Date of 1970 Referring Physician Age 53 year(s) Tile Helper Interpreting Physician Brian MDProcedure Type of Study [...] valve.Tricuspid Valve Partially visualized. Pulmonic Valve Not visualized.[facility] CenterMRSA bdtofw5622-98-30 09:55:41* Test Item Value Reference Range Interpretation Comme nts Result (test code = 6463-4) No MRSA isolated [facility] HospitalSA [id number] 09:55:41* Test Item Value Reference Range Interpretation Comme nts CULTURE (BEAKER) (test code = 1095) No MRSA isolated CRYPTOCOCCAL [id number] 15:50:36* Test Item Value Reference Range Interpretation Comme nts CRYPTOCOCCAL ANTIGEN, SERUM (BEAKER) (test code = 1828) Negative Negative, Interference SPUTUM CULTURE + GRAM [id number] 10:30:11* Test Item Value Reference Range Interpretation [...] GRAM STAIN RESULT (BEAKER) (test code = 666383) 10-15 epithelial cells GRAM STAIN RESULT (BEAKER) (test code = 138750) 2+ gram positive cocci in chains and pairs GRAM STAIN RESULT (BEAKER) (test code = 295129) 1+ gram negative rods GRAM STAIN RESULT (BEAKER) (test code = 715314) 1+ yeast 2+ Normal respiratory rebel presentVANCOMYCIN LEVEL, [id number] 06:41:26* Test Item Value Reference Range Interpretation Comme nts VANCOMYCIN TROUGH (BEAKER) ( test code = 522) 17.0 ug/mL 10.0-20.0 Pigment Presser ID - ADMINECHO W CONTRAST & [id number] 13:44:03Transthoracic Echocardiography Report (TTE) Demographics Patient Name YUE ROMERO Date of Study 06/14/2023 [place] Gender Female Visit Number [id number] Race Room Number 1055 Number Date of 1970 Referring Aydee Go MD Physician Age 53 year(s) Tile Helper James Albarran [facility] Interpreting Physician Brian MDProcedure Type of Study [...] Velocity: 0.85 m/s Peak Gradient: 2.89 mmHgCHI [facility] HospitalECHO W CONTRAST & DOPPLER 2023-06-14 13:44:03Transthoracic Echocardiography Report (TTE) Demographics Patient Name YUE ROMERO Date of Study 06/14/2023 [place] Gender Female Visit Number [id number] Race Room Number 1055 Number Date of 1970 Referring Aydee Go MD Physician Age 53 year(s) Tile Helper James Albarran RDCS Interpreting Physician Brian MDProcedure [...] Peak Velocity: 0.85 m/s Peak Gradient: 2.89 mmHgLos Alamitos Medical CenterHEMOGLOBIN [id number] 09:26:42* Test Item Value Reference Range Interpretation Comme [facility] HEMOGLOBIN A1C ELECTROPHORESIS ([employer]) (test code = 3811) 6.7 % See_Comment [...] 5.7- 6.4% indicates increased risk for diabetes (prediabetes)."Pigment Presser ID - ADMOperator ID - ADMECG 12 [id number] 09:06:12Ventricular Rate 97 BPMAtrial Rate 97 BPMP-R Interval 146 msQRS Duration 96 msQ-T Interval 378 msQTC Calculation(Bazett) 480 msP Sherburn 68 degreesR Sherburn 107 degreesT Sherburn 18 degrees Suspect arm leadreversal, interpretation assumes no reversalNormal sinus rhythmRightward axisNonspecific T wave abnormalityAbnormal ECGWhen compared with ECG of 30-MAR-2023 13:06,QRS axis Shifted rightConfirmed by Luis Lopez ([id number]) on 06/14/2023 9:06:07 [facility]EC[facility] [id number] 09:06:12Ventricular Rate 97 BPMAtrial Rate 97 BPMP-R Interval 146 msQRS Duration 96 msQ-T Interval 378 msQTC Calculation(Dimas) 480 msP Sherburn 68 degreesR Sherburn 107 degreesT Sherburn 18 degrees Suspect arm leadreversal, interpretation assumes no reversalNormal sinus rhythmRightward axisNonspecific T wave abno rmalityAbnormal ECGWhen compared with ECG of 30-MAR-2023 13:06,QRS axis Shifted rightConfirmed by Luis Lopez ([id number]) on 06/14/2023 9:06:07 [facility] HospitalBASI METABOLIC [id number] 04:48:18* Test Item Value Reference Range Interpretation [...] GFR is not applicable for dialysis patients Pigment Presser ID - ADMINCBC (HEMOGRAM ONLY)2023-06-14 04:22:50* Test [...] 413) 0 /100 WBC 0-0 Strep pneumoniae [id number] 23:34:41* Test Item Value Reference Range Interpretation Comme nts Strep pneumoniae Antigen (test code = 23435-3) Presumptive negative for pneumococcal pneumonia - see [...] the test. Lab Interpretation (test code = 74749-6) Normal [facility] CenterTREP PNEUMONIAE [id number] 23:34:41* Test Item Value Reference Range Interpretation [...] detection limit of the test. Legionella antigen, [id number] 23:29:07* Test Item Value Reference Range Interpretation Comme nts Legionella Urine Antigen (test code = 65679-6) Negative - see comment Negative Negative for L. pneumophila serogroup 1 antigen, suggesting no recent or current infection with this serogroup. Legionellosis cannot be ruled out since other serogroups and species may cause disease. Lab Interpretation (test code = 56896-4) Normal [facility] HospitalLEGIONELLA ANTIGEN, [id number] 23:29:07* Test Item Value Reference Range Interpretation Comme nts L. PNEUMOPHILA SEROGP 1 UR AG (BEAKER) (test code = 1156) Negative - see comment Negative Negative for L. pneumophila serogroup 1 antigen, suggesting no recent or current infection with this serogroup. Legionellosis cannot be ruled out since other serogroups and species may cause disease. Venous doppler arm, [id number] 20:05:32PV LAB - Upper Extremities Veins Demographics Patient Name YUE ROMERO Date of Study 06/13/2023 [place] Age 53 Visit Number [id number] Gender Female Accession Number [id number] Date of 1970 Referring Marianela Collazo Room Number 1055 Physician Tile Helper Lisa Ruiz Interpreting John Solorio, Physician FellowProcedureType [...] in cm/s ; Diameters are measured in [facility] HospitalVenous doppler arm, [id number] 20:05:32PV LAB - Upper Extremities Veins Demographics Patient Name YUE ROMERO Date of Study 06/13/2023 BROOK[place]NN Age 53 Visit Number [id number] Gender Female Accession Number [id number] Date ofBirth 1970 Referring Marianela Collazo Room Number 1055 Physician Tile Helper Lisa Ruiz Interpreting Physician CARO Oliver FellowProcedureType [...] in cm/s ; Diameters are measured in [facility] HospitalHIV-1 ANTIGEN WITH HIV-1/2 [id number] 18:36:40* Test Item Value Reference Range Interpretation Comme nts HIV-1 ANTIGEN WITH HIV 1\\T\\2 ANTIBODY (2) (LATOYA) (test code = 2586) Nonreactive Nonreactive MR lumbar spine without & with IV fawcegdp4681-26-89 14:53:29MR LUMBAR SPINE WITH & WITHOUT IV [...] x 1.7x 1.7 cm. Dorsal paraspinal musculature L2nvpgeodhyjokvh. Postcontrast imaging demonstrates mild peripheralenhancement of the dorsal paraspinal fluid collection. Left adrenalgland 2.9 cm nodule.[facility] CenterMR lumbar spine without & with IV zgofdzrq1919-84-82 14:53:29MR LUMBAR SPINE WITH & WITHOUT IV [...] x 1.7x 1.7 cm. Dorsal paraspinal musculature G3afrqlffoapfnci. Postcontrast imaging demonstrates mild peripheralenhancement of the dorsal paraspinal fluid collection. Left adrenalgland 2.9 cm nodule.[facility] CenterMR LUMBAR SPINE WITH & WITHOUT IV FFXQULZO7198-54-52 14:53:29[facility] : 1970 Sex: [...] 1.7 x 1.7 cm. Dorsal paraspinal musculature U4wolgmfaovfbhxd. Postcontrast imaging demonstrates mild peripheralenhancement of the [...] Signed By: Ryan Buckley06/13/2023 14:55 CDTWorkstation Name: [id number] KINASE (CK)2023-06-13 11:54:02* Test Item Value Reference Range Interpretation Comme nts CREATINE KINASE TOTAL (BEAKE R) (test code = 380) 43 U/L 29-200 Pigment Presser ID - ADMINCOMPREHENSIVE METABOLIC [id number] 06:48:22* Test Item Value Reference Range Interpretation [...] GFR is not applicable for dialysis patients Pigment Presser ID - ADMINPROTHROMBIN TIME/VWI3798-03-51 06:40:01* Test Item Value Reference Range Interpretation [...] code = 2801) 1.70 % 0.00-1.00 H [id number] 05:26:09* Test Item Value Reference Range Interpretation Comme nts MAGNESIUM (BEAKER) (test cod e = 627) 2.0 mg/dL 1.6-2.6 Pigment Presser ID - [id number] 05:26:09* Test Item Value Reference Range Interpretation Comme nts PHOSPHORUS (BEAKER) (test co de = 604) 3.5 mg/dL 2.3-4.7 Pigment Presser ID - ADMINBASIC METABOLIC [id number] 05:26:08* Test Item Value Reference Range Interpretation [...] GFR is not applicable for dialysis patients Pigment Presser ID - ADMINCBC W/PLT COUNT & AUTO [id number] 05:11:15* Test Item Value Reference Range Interpretation [...] 0.70 % 0.00-1.00 XR spine lumbar 1 [id number] 10:32:20XR SPINE LUMBAR 1 VIEW CLINICAL INDICATION: L3-4 LAMINECTOMY [facility] taqr7248-16-23 10:32:20XR SPINE LUMBAR 1 VIEW CLINICAL INDICATION: L3-4 LAMINECTOMY COMPARISON: [facility] 2023-06-01 10:32:20 [facility] : 1970 Sex: FXR SPINE LUMBAR 1 VIEWCLINICAL INDICATION: L3-4 LAMINECTOMYCOMPARISON: NoneIMPRESSION:A single lateral view of the lumbar spine is obtained intraoperatively.The posterior approach surgical instrument is seen at the L3-L4 level,inferior to the L3 spinous process. Results were communicated to , who concurred with the above findings. Electronically Signed By: Maxim Ramos08/01/2022 10:34 CDTWo rkstation Name: [id number] SPINE LUMBAR 1 TLZM7274-28-23 10:29:18 [facility] : 1970 Sex: [...] the L3 spinous process.Electronically Signed By: Maxim Hull 10:31 CDTWorkstation Name: [id number] Screen, axbur6738-98-08 05:32:52* Test Item Value Reference Range Interpretation Comme nts Preg Test, Ur (test code = 2112-1) Negative Negative Lab Interpretation (test cod e = 63656-6) Normal [facility] HospitalPREGNANCY SCREEN, [id number] 05:32:52* Test Item Value Reference Range Interpretation Comme nts TEST URINE (BEAKER ) (test code = 583) Negative Negative BASIC METABOLIC [id number] 23:30:54* Test Item Value Reference Range Interpretation [...] GFR is not applicable for dialysis patients Pigment Presser ID - ADMINPT/CDFV4979-04-38 23:15:33* Test Item Value Reference Range Interpretation [...] H CT neck soft tissue without IV vaovtygl6693-46-10 13:45:22EXAM: CT NECK SOFT TISSUE WITHOUT IV [...] Postoperative changes from anterior cervical discectomy fusionat C3-W7Becqijnd Lung Apices: NormalCHI [facility] Mary HospitalCT neck soft tissue without IV hrxrleto4809-55-21 13:45:22EXAM: CT NECK SOFT TISSUE WITHOUT IV [...] Postoperative changes from anterior cervical discectomy fusionat C3-V7Qxokmbon Lung Apices: NormalCHI [facility] HospitalCT NECK SOFT TISSUE WITHOUT IV NEKCCUBP8745-79-78 13:45:22 [facility] : 1970 Sex: [...] Postoperative changes from anterior cervical discectomy fusionat C3-B8Mdlqqndw Lung Apices: NormalIMPRESSION:Exam limited by lack of intravenous contrast.1. 1.8 x 2.9 x 1.3 cm ill-defined fluid collection in the leftanterolateral neck soft tissues, suggesting evolving postoperativehemorrhage. Superimposed infection is not ex cluded.2. Retropharyngeal fluid and air measuring up to 0.8 cm in thickness,favored to be present postoperative right frontal edema. Superimposedinfection is not excluded.3. Postoperative changes from ACDF at C3- T8Fnjkvyhuzvfujo Signed By: Maxim Ramos07/31/2022 13:47 CDTWorkstation Name: [id number] METABOLIC [id number] 08:13:13* Test Item Value Reference Range Interpretation [...] GFR is not applicable for dialysis patients Pigment Presser ID - BVCBC W/PLT COUNT & AUTO [id number] 07:46:31* Test Item Value Reference Range Interpretation [...] 0.00-1.00 XR spine cervical 2 or 3 shsax5466-15-29 20:24:23TECHNIQUE: Frontal and lateral views of the cervical spine. INDICATION: Postop Standing Films. COMPARISON: None.[facility]XR spine cervical 2 or 3 ushjv5190-56-43 20:24:23TECHNIQUE: Frontal and lateral views of the cervical spine. INDICATION: Postop Standing Films. COMPARISON: None.[facility] CenterXR SPINE CERVICAL 2 OR 3 [id number] 20:24:23 [facility] : 1970 Sex: [...] Signed By: Zachariah Garcia05/28/2023 20:26 CDTWorkstation Name: [id number] fluoro non-specific up to 1 hour 2023-05-28 11:45:16This is a non-reportable study with no Radiologist dictation. Please refer to your PACS to review images, or Doc Flowsheets for documentation on studies without images.[facility] CenterFL fluoro non-specific up to 1 layg8863-83-35 11:45:16This is a non-reportable study with no Radiologist dictation. Please refer to your PACS to review images, or Doc Flowsheets for documentation on studies without images.[facility] CenterFL FLUORO NON-SPECIFIC UP TO 1 [id number] 11:45:16 [facility] : 1970 Sex: FThis is a non- reportable study with no Radiologist dictation. Please refer to your PACS to review images, or Doc Flowsheets for documentation on studies without images.FL FLUORO NON-SPECIFIC UP TO 1 [id number] 10:13:02 [facility] : 1970 Sex: FTECHNIQUE: 1 lateral fluoroscopic image of the cervical spine forlocalization.Fluoroscopic time: 3second(s).FINDINGS:The surgical pointer is at C3-C4.The findings were discussed with Dr. Garcia in theOR who concurred withthe findings.IMPRESSION:Intraoperative localization plain film as described abo ve.Electronically Signed By: Derik Reyez05/28/2023 10:15 CDTWorkstation Name: [id number], QUANTITATIVE, FCKRTBESY3781-83-34 08:21:03* Test Item Value Reference Range Interpretation Comme nts GONADOTROPIN, CHORIONIC (HCG ) QUANT (BEAKER) (test code = 649) < mIU/mL 0-10 Non- Females: <10 mIU/mL Females: Gestation Age Reference Range(mIU/mL) 0.2-1 Week 5-50 1-2 Weeks 50-500 2-3 Weeks 100-5,000 3-4 Weeks 500-10,000 4-5 Weeks 1,000-50,000 5-6 Weeks 10,000-100,000 6-8 Weeks 15,000- 200,000 2-3 Months 10,000-100,000 Pigment Presser ID - ADMINCULTCOCO NASHFESVT6066-52-05 09:28:30SPECIMEN NUMBER: [id number] CULTURE, URINE SPECIMEN NUMBER: [id number] SPECIMEN COMMENT: URINE SOURCE: URINE REPORT STATUS: FINAL FINAL REPORT: 05/15/2023 >100,000 CFU/ML UROGENITAL REBEL PRESENT NO COMMON PATHOGENS UNLESS OTHERWISE INDICATED, ALL TESTING PERFORMED AT [facility] [address] [place] [address] PHARMACIST'S AIDE: JANNY STEINER M.D. CLIA NUMBER [id number] [place] [id number], [id number] 12:02:50SPECIMEN NUMBER: [id number] CULTURE, URINE SPECIMEN NUMBER: [id number] SOURCE: URINE REPORT STATUS: FINAL FINAL REPORT: 05/13/2023 NO SPECIMEN RECEIVED FOR TESTING. CHARGES DELETED.BASIC METABOLIC [id number] 04:48:43* Test Item Value Reference Range Interpretation Comme nts GLUCOSE (test code = 2217) 117 MG/DL 70-99 H BUN (test code = 2208) 20 MG/DL 6-20 CREATININE (test code = 2214) 0.83 MG/DL 0.60-1.30 eGFR (2020 CKD-EPI) (test co de = 74102) 85 ML/MIN/1.73 >60 SODIUM (test code = [...] 12.7 SECONDS 12.5-14.7 INR (test code = 73838) 0.9 SEE BELOW CURRENT RECOMMENDATIONS ARE FOR AN INR OF 2.0-3.0 FOR ALL PATIENTS ON VITAMIN K ANTAGONISTS, EXCEPT THOSE WITH PROSTHETIC HEART VALVES, FOR WHOM INR OF 2.5-3.5 IS RECOMMENDED. UNLESS OTHERWISE INDICATED, ALL TESTING PERFORMED AT [facility] [address] [place] [address] PHARMACIST'S AIDE: JANNY STEINER M.D. CLIA NUMBER [id number] [place]. [id number] CBC W/AUTO DIFF WITH EMOQSHTRI9502-07-02 01:54:17* Test Item Value Reference Range Interpretation [...] H ABS NUCLEATED RBCS (test code = 48502) 0.00 K/UL 0.00-0.11 ECG 12 [id number] 14:02:48Ventricular Rate 102 BPMAtrial Rate 102 BPMP-R Interval 146 msQRS Duration 90 msQ-T Interval 372 msQTC Calculation(Bazett) 484 msP Sherburn 11 degreesR Sherburn -53 degreesT Sherburn 29 degrees Sinus tachycardiaPossible Left atrial enlargementLeft axis deviationPoor R wave progression Cannot rule out Anterior infarct , age undetermined vs lead misplacementNonspecific T wave abnormalityProlonged QTAbnormal ECGNo previous ECGs availableConfirmed by David GARCIA BASANT ([id number]) on 04/06/2023 2:02:46 [facility] DiegoE[facility] W CONTRAST & [id number] 13:11:39Transthoracic Echocardiography Report (TTE) Demographics Patient Name YUE ROMERO Date of Study 03/31/2023 [place] Gender Female Visit Number [id number] Race Room Number 2227 Number Date of 1970 Referring Physician Mariah Aldridge MD Age 53 year(s) Tile Helper Wilmer Francois Route Sales Delivery Driver Josefina Corbett, CS Interpreting Physician Melody MDProcedure Type of Study [...] Velocity: 0.74 m/s Peak Gradient: 2.22 mmHgCH[facility]AST & [id number] 13:11:39Transthoracic Echocardiography Report (TTE) Demographics Patient Name YUE ROMERO Date of Study 03/31/2023 [place] Gender Female Visit Number [id number] Race Room Number 2227 Number Date of 1970 Referring Physician Mariah Aldridge MD Age 53year(s) Tile Helper Wilmer Francois Route Sales Delivery Driver Josefina Corbett, [facility] Interpreting Physician Melody MDProcedure [...] Peak Velocity: 0.74 m/s Peak Gradient: 2.22 mmHgLos Alamitos Medical CenterXR chest 1 view portable / ercxzsu7671-81-23 15:39:07TECHNIQUE: Frontal view of the chest. INDICATION: CHf. COMPARISON: None. FINDINGS: LINES/TUBES: None. HEART AND MEDIASTINUM: Cardiomediastinal contour is within normallimits. LUNGS: The lungs are well inflated and clear. No consolidation orpulmonary edema. PLEURA: No pneumothorax. No significant pleural effusion. SOFT TISSUES AND BONES: Cervical spinal fixation hardware is noted.[facility] CenterXR chest 1 view portable / [id number] 15:39:07TECHNIQUE: Frontal view of the chest. INDICATION: CHf. COMPARISON: None. FINDINGS: LINES/TUBES: None. HEART AND MEDIASTINUM: Cardiomediastinal contour is within normallimits. LUNGS: The lungs are well inflated and clear. No consolidation orpulmonary edema. PLEURA: No pneumothorax. No significant pleural effusion. SOFT TISSUES AND BONES: Cervical spinal fixation hardware is noted.[facility] CenterXR CHEST 1 VIEW PORTABLE / [id number] 15:39:07 [facility]Name[facility] YUEHEATHER BROOKLYNN : 1970 Sex: FTECHNIQUE: Frontal view of the chest.INDICATION: CHf.COMPARISON: None.FINDINGS:LINES/TUBES: None.HE ART AND MEDIASTINUM: Cardiomediastinal contour is within normallimits. LUNGS: The lungs are well inflated and clear. No consolidation orpulmonary edema.PLEURA: No pneumothorax. No significant pleuraleffusion.SOFT TISSUES AND BONES: Cervical spinal fixation hardware is noted.IMPRESSION:No acute card iopulmonary process.Electronically Signed By: Jose Carlos Lebron04/01/2023 15:41 CDTWorkstation Name: [id number]-YCSI NATRIURETIC FACTOR (BNP)2023-04-01 14:15:07* Test Item Value Reference Range Interpretation Comme nts B-TYPE NATRIURETIC PEPTIDE ( BEAKER) (test code = 700) 192 pg/mL 0-100 H Pigment Presser ID - ADMINMR spine cervical without IV urxdnpgl5212-99-28 11:30:35MRI cervical spine without contrast CLINICAL HISTORY: [...] and paraspinal soft tissues are within normal limits.[facility] CenterMR CERVICAL SPINE WITHOUT IV [id number] 11:30:35 [facility] : 1970 Sex: [...] Signed By: Maxim Sultana03/31/2023 11:32 CDTWorkstation Name: [id number] METABOLIC [id number] 04:43:14* Test Item Value Reference Range Interpretation [...] GFR is not applicable for dialysis patients Pigment Presser GEOVANNA CORREA WCBC (HEMOGRAM ONLY)2023-03-31 04:20:07* Test [...] 0 /100 WBC 0-0 Arterial doppler legs vkhujtzqv8917-91-28 17:44:07PV LAB - Lower Extremity Arterial Duplex Demographics Patient Name YUE ROMERO Date of Study BR[place]NN Age 53 Visit Number [id number] Gender Female Accession Number [id number] Date of 1970 Referring Mariah Aldridge, Room Number 2227 Physician Tile Helper Yovana Akins Interpreting John Solorio, Physician FellowProcedureType [...] + + + + + + !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 !32 ! !Biphasic ! !60.9 ! !Triphasic ! +-- + + + + + + + + + !Mid [employer]FT [employer] CONDITIONING MECHANIC ! !25.9 ! !Biphasic ! !59.7 ! !Triphasic ! + + + + + + + + + + !Dist [employer]CRAFT AIR CONDITIONING MECHANIC ! !33.2 ! !Biphasic ! !37.4 ! [...] + + + + + + + +R[facility] HospitalArterial doppler legs nqixcyuxi7378-47-69 17:44:07PV LAB - Lower Extremity Arterial Duplex Demographics Patient Name YUE ROMERO Date of Study 03/30/2023 BR[place]NN Age 53 Visit Number [id number] Gender Female Accession Number [id number] Date of 1970 Referring Mariah Aldridge, Room Number 2227 Physician Tile Helper Yovana Akins Interpreting John Solorio, Physician FellowProcedureType [...] + + + + + + !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 !32 ! !Biphasic ! !60.9 ! !Triphasic ! + + + + + + + + + + !Mid AIRCRAFT AIR CONDITIONING MECHANIC ! !25.9 ! !Biphasic ! !59.7 ! !Triphasic ! + + + + + + + + + + !Dist AIRCRAFT AIR CONDITIONING MECHANIC ! !33.2 ! !Biphasic ! !37.4 ! [...] + + + + + + +[facility] HospitalABI's Only(Ankle/Brachial Index)2023-03-30 17:13:47PV LAB - Lower Extremity Arterial Procedure Demographics Patient Name YUE ROMERO Date of Study 03/30/2023 [place] Age 53 Visit Number [id number] Gender Female Accession Number [id number] Date of 1970 Referring Mariah Aldridge, Room Number 2227 Physician Tile Helper Yovana Akins Interpreting John Solorio, Physician FellowProcedureType [...] in cm/s ; Diameters are measured in [facility]AB[facility](Ankle/Brachial Index)2023-03-30 17:13:47PV LAB - Lower Extremity Arterial Procedure Demographics Patient Name YUE ROMERO Date of Study 03/30/2023 BR[place] Age 53 Visit Number [id number] Gender Female Accession Number [id number] Date of 1970 Referring Mariah Aldridge, Room Number 2227 Physician Tile Helper Yovana Akins Interpreting Physician CARO Oliver FellowProcedureType [...] ; Diameters are measured in [facility] thoracic spine without IV rnlngnmu7240-50-40 12:50:50MR THORACIC SPINE WITHOUT IV CONTRAST INDICATION: [...] and further reported on MRI lumbar spine. [facility] CenterMR THORACIC SPINE WITHOUT IV [id number] 12:50:50[facility] : 1970 Sex: [...] abnormality. T10-11 moderate right neural foraminal stenosis psjS04-18 moderate bilateral foraminal stenosis due to facet [...] Signed By: Ryan Buckley03/30/2023 12:52 CDTWorkstation Name: [id number] spine lumbar without IV xjrpuqkk4113-80-99 12:33:57MR LUMBAR SPINE WITHOUT IV CONTRAST INDICATION: Unlisted Reason for ExamConcern for cord compression COMPARISON: None TECHNIQUE: Multiplanar, multisequence MR images of the lumbar spinewithout contrast. FINDINGS: For the purposes of this dictation, the 5 lowermost wpgvlb-hmjdogxdddppc-stpv vertebral bodies are labeled L1-L5.Alignment of the [...] with mild to moderatebilateral neural foraminal stenosisCHI [facility] HospitalMR LUMBAR SPINE WITHOUT IV [id number] 12:33:57 [facility] : 1970 Sex: FMR LUMBAR SPINE WITHOUT IV CONTRASTINDICATION: Unlisted Reason for ExamConcern for cord compressionCOMPARISON: NoneTECHNIQUE: Multiplanar, multisequence MR images of the lumbar spinewithout contrast. FINDINGS: For the purposes of this dictation, the 5 lowermost hfsgrn-onmoxmetgrmzj-hxwz vertebral bodies are labeled L1- L5.Alignment of the lumbar spine is within normal limits. Vertebral body height is maintained. Bone marrow edema is seen at the inferior L3 and superior L4 vertebralbodies and bilateral L4 pedicles, favored to be degenerative in nature.Suggestion of a synovial cyst at the xbkpcG52-R78 level (series 301image eight).No spinal cord signal [...] flavum buckling versus synovial cyst at the ulrgeO51-I87 level (series 301image eight). MRI thoracic spine can beconsidered for further evaluation.7. Mild clumping of the cauda equina nerve roots, which is nonspecificbut may represent arachnoiditis. Postcontrast imaging can be consideredfor further evaluation.Electronically Signed By: Maxim Sultana03/30/2023 12:36 CDTWorkstation Name: ANDHNUG20CWYZWRGTPZ [id number] 11:45:01* Test Item Value Reference Range Interpretation [...] 5.7- 6.4% indicates increased risk for diabetes (prediabetes)."Pigment Presser ID - ADMEEG AWAKE AND NTGQQP4111-22-01 09:57:53Steph Martinez MD 03/30/2023 9:[address] [facility] Type: Inpatient, outpatient, EMUDATE(s) OF EE03/30/23DATE OF REPORT: 03/30/23MRN: [id number] of : 1970EE-1454Start time: 08:36Stop time: :ICD-10: R56.9 CPT Code: 77989 (awake and asleep)HISTORY: 53 y/o female with [...] EEG recordings. Steph Elias MD, MPHNeurophysiology/Epilepsy AttendingCHI [facility] EEG AWAKE AND [id number] 09:57:53Steph Martinez MD 03/30/2023 9:59 AMELECTROENCEPHALOGRAM FOR [facility] EEG Type: Inpatient, outpatient, EMUDATE(s) OF EE03/30/23DATE OF REPORT: 03/30/23MRN: [id number] of : 1970EE-1454Start time: 08:36Stop time: 09:ICD-10: R56.9 CPT Code: 84472 (awake and asleep)HISTORY: 53 y/o female with [...] EEG recordings. Steph Elias MD, MPHNeurophysiology/Epilepsy AttendingCHI [facility] EEG AWAKE AND [id number] 09:57:53Steph Martinez MD 03/30/2023 9:59 AMELECTROENCEPHALOGRAM FOR [facility] EEG Type: Inpatient, outpatient, EMUDATE(s) OF EE03/30/23DATE OF REPORT: 03/30/23MRN: [id number] of : 1970EE-1454Start time: 08:36Stop time: :ICD-10: R56.9 CPT Code: 42717 (awake and asleep)HISTORY: 53 y/o female with [...] EEG recordings. Steph Elias MD, MPHNeurophysiology/Epilepsy AttendingCHI [facility] EEG AWAKE AND [id number] 09:57:53Gabrielstalin Martinez MD 03/30/2023 9:59 AMELECTROENCEPHALOGRAM FOR [facility] EEG Type: Inpatient, outpatient, EMUDATE(s) OF EE03/30/23DATE OF REPORT: 03/30/23MRN: [id number] of : 1970EE-1454Start time: 08:36Stop time: 09:ICD-10: R56.9 CPT Code: 16713 (awake and asleep) HISTORY: 53 y/o female [...] epilepsy remains, consider additional EEG recordings. Steph Elais MD, MPHNeurophysiology/Epilepsy AttendingCHI [facility] VALPROIC ACID LEVEL, [id number] 09:42:31* Test Item Value Reference Range Interpretation Comme nts VALPROIC ACID TOTAL (BEAKER) (test code = 924) 76 ug/mL 50-100 Therapeutic range for some clinical conditions may be >100 ug/mLUrinalysis w/Microscopic + Reflex to [id number] 08:43:51* Test Item Value Reference Range Interpretation Comme nts Color, UA (test code = 5778-6) Yellow Clarity, UA (test code = 5767-9) Clear Specific Gary, UA (test code = 5811-5) 1.033 1.001-1.035 pH, UA (test code = 5803-2) 6.0 5.0-8.0 Protein, UA (test code = 13733-7) 30 mg/dL Negative A Glucose, UA (test code = 365) Negative Negative Ketones, UA (test code = 2514-8) Negative Negative Bilirubin, UA (test code = 36679-9) Negative Negative Blood, UA (test code = 76941-7) Small Negative A Nitrite, UA (test code = 5802-4) Negative Negative Leukocytes, UA (test code = 5799-2) Negative Negative Urobilinogen, UA (test code = 38138-3) 0.2 0.2-1.0 RBC, UA (test code = 57975-7) 51 See_Comment [Automated message] The system which [...] Occasional Squam Epithel, UA (test code = 58719-8) See_Comment [Automated message] The system which generated this result transmitted reference range: /HPF. The reference range was not used to interpret this result as normal/abnormal. Specimen Source (test code = 2795) LYNDSAY (test code = LYNDSAY) Pigment Presser ID - [auto]Pigment Presser ID - tech Lab Interpretation (test code = 33773-9) Abnormal [facility] CenterURINALYSIS W/ REFLEX URINE [id number] 08:43:51 * Test Item Value Reference Range [...] < /HPF SOURCE(BEAKER) (test code = 2795) Pigment Presser ID - [auto]Pigment Presser ID - techCOMPREHENSIVE METABOLIC [id number] 04:37:29* Test Item Value Reference Range Interpretation [...] GFR is not applicable for dialysis patients Pigment Presser ID - MATT BPT/LXJF1262-38-79 04:30:17* Test Item Value Reference Range Interpretation [...] code = 413) 0 /100 WBC 0-0 YPP-ODYMIFG9350-64-10 00:00:00Ordered by an unspecified provider.[facility] CenterMAGNESIUM2023-05-25 17:14:06* Test Item Value Reference Range Interpretation Comme nts MAGNESIUM (test code = 5774111604) 1.9 mg/dL 1.7-2.4 Lab Interpretation (test cod e = 80491-7) Normal [facility] CenterCOMP. METABOLIC PANEL (84055)2022-12-11 15:16:25* Test Item Value Reference Range Interpretation Comme nts NA (test code = 9705091813) 139 mmol/L 135-145 K (test code = 9096542706) 3.5 mmol/L 3.5-5.0 CL (test code = 1231594744) 107 mmol/L 98-108 CO2 TOTAL (test code = 8577592501) 24 mmol/L 23-31 AGAP (test code = 5544049902) 8 2-16 BUN (test code = 1244434504) 9 mg/dL 7-23 GLUCOSE (test code = 9753345863) 129 mg/dL 70-110 H CREATININE (test code = 8292342916) 0.68 mg/dL 0.50-1.04 TOTAL BILI (test code = 7512732898) 0.5 mg/dL 0.1-1.1 CALCIUM (test code = 0803519907) 8.9 mg/dL 8.6-10.6 T PROTEIN (test code = 5736398856) 6.3 g/dL 6.3-8.2 ALBUMIN (test code = 7198986303) 3.8 g/dL 3.5-5.0 ALK PHOS (test code = 7704087332) 87 U/L 34-122 ALTv (test code = 1742-6) 24 U/L 5-35 AST(SGOT) (test code = 8961098827) 21 U/L 13-40 eGFR (test code = 3000282067) 91.6 mL/min/1.73m2 LYNDSAY (test code = LYNDSAY) [...] imaging tests). Lab Interpretation (test code = 35817-5) Abnormal [facility] CenterTRIMERNIN [id number] 15:10:45* Test Item Value Reference Range Interpretation Comme nts TROPONIN I (test code = 5500423589) 0.015 ng/mL <=0.034 LYNDSAY (test code = [...] of biotin. Lab Interpretation (test code = 91186-2) Normal [facility] CenterN-TERMINAL YVS-FAH8956-53-25 15:07:48* Test Item Value Reference Range Interpretation Comme nts NT-proBNP (test code = 3647910766) 1460 pg/mL <=125 H LYNDSAY (test code = LYNDSAY) Biotin has been reported to cause a negative bias, interpret results relative to patient's use of biotin. Lab Interpretation (test code = 03348-7) [facility][id number] 14:45:24* Test Item Value Reference Range Interpretation Comments D-DIMER (test code = 4563638122) 0.99 See_Comment H [Automated message] The system [...] a diagnosis. Lab Interpretation (test code = 09816-7) [facility]normal [facility]CBC WITH [id number] 14:14:48* Test Item Value Reference Range Interpretation Comme nts WBC (test code = 6690-2) 7.86 See_Comment [Automated Affashion] The system which generated this result transmitted reference range: 4.30 - 11.10 10*3/?L. The reference range was not used to interpret this result as normal/abnormal. RBC (test code = 789-8) 5.13 See_Comment [Automated [employer]ashion] The system which generated this result transmitted [...] g/dL 31.6-35.1 L RDW-SD (test code = 58070-5) 47.8 fL 39.0-49.9 RDW-CV (test code = 788-0) 16.9 % 12.0-15.5 H PLT (test code = 777-3) 507 See_Comment H [Automated messa ge] The system which generated this result transmitted reference range: 166 - 358 10*3/?L. The reference range was not used to interpret this result as normal/abnormal. MPV (test code = 09204-6) 8.2 fL 9.5-12.9 L NRBC/100 WBC (test code = 3242875851) 0.0 See_Comment [Automated Beyond the Box ssage] The system which generated this result transmitted reference range: 0.0 - 10.0 /100 WBCs. The reference range was not used to interpret this result as normal/abnormal. NRBC x10^3 (test code = 3620309736) See_Comment [Automated messa ge] The system which generated this result transmitted reference range: 10*3/?L. The reference range was not used to interpret this result as normal/abnormal. GRAN MAT (NEUT) % (test code = 770-8) 64.5 % IMM GRAN % (test code = 7701843212) 0.30 % LYMPH % (test code = 736-9) 25.6 % MONO % (test code = 5905-5) 7.5 % EOS % (test code = 713-8) 1.0 % BASO % (test code = 706-2) 1.1 % GRAN MAT x10^3(ANC) (test code = 4115348214) 5.07 10*3/uL 1.88-7.09 IMM GRAN x10^3 (test code = 4556124532) 0.00-0.06 LYMPH x10^3 (test code = 731-0) 2.01 10*3/uL 1.32-3.29 MONO x10^3 (test code = 742-7) 0.59 10*3/uL 0.33-0.92 EOS x10^3 (test code = 711-2) 0.08 10*3/uL 0.03-0.39 BASO x10^3 (test code = 704-7) 0.09 10*3/uL 0.01-0.07 H Lab Interpretation (test code = 43616-2) [facility]normal [facility] 13:17:22* Test Item Value Reference Range Interpretation Comme nts RPR SCREEN (Weimi) (test co de = 420) Nonreactive Nonreactive HEMOGLOBIN [id number] 10:39:49* Test Item Value Reference Range Interpretation Comme nts HEMOGLOBIN A1C ELECTROPHORESIS (Weimi) (test code = 3811) 5.8 % See_Comment H [Automated me ssage] The system which generated this result transmitted reference range: <=5.6%. The reference range was not used to interpret this result as normal/abnormal. "The A1c is measured using a [facility]-certified method. HbA1c value equal to or greater than 6.5% as the diagnosis cutoff for diabetes. An HbA1c value of 5.7- 6.4% indicates increased risk for diabetes (prediabetes)."Pigment Presser ID - ADM VITAMIN [id number] 22:48:27* Test Item Value Reference Range Interpretation Comme nts VITAMIN B12 (Weimi) (test c ode = 774) 227 pg/mL 213-816 Pigment Presser ID - MARCOTSH/FREE T4 IF [id number] 22:08:28* Test Item Value Reference Range Interpretation Comme nts THYROID STIMULATING HORMONE (Weimi) (test code = 772) 3.309 uIU/mL 0.350-4.940 Pigment Presser ID - JSHIV-1 ANTIGEN WITH HIV-1/2 [id number] 22:08:28* Test Item Value Reference Range Interpretation Comme nts HIV-1 ANTIGEN WITH HIV 1\\T\\2 ANTIBODY (2) (BEAKER) (test code = 2586) Nonreactive Nonreactive Pigment Presser ID - JSC-REACTIVE [id number] 21:49:44* Test Item Value Reference Range Interpretation Comme nts C-REACTIVE PROTEIN (BEAKER) (test code = 676) 0.35 mg/dL 0.00-0.50 Pigment Presser ID - JSCOMPREHENSIVE METABOLIC [id number] 21:49:43* Test Item Value Reference Range Interpretation [...] GFR is not applicable for dialysis patients Pigment Presser ID - JSLIPID [id number] 21:49:43* Test Item Value Reference Range Interpretation [...] Borderline 130-159 High 160-189 Very High >=190 Pigment Presser ID - JSCBC W/PLT COUNT & AUTO [id number] 21:34:03* Test Item Value Reference Range Interpretation [...] Interpretation Comme nts Height (test code = 4375684281) in Weight (test code = 5452880766) lbs Systolic BP (test code = 1715133546) mmHg Diastolic BP (test code = 6159822455) mmHg Heart Rate (test code = 6002870997) bpm BSA (test code = 5317504171) 2.00 m2 Ao root diam (test code = 7138563044) 3.20 cm Aortic root (test code = 0716961790) 3.2 cm Ao root annulus (test code = 9662471184) 3.2 cm LVOT diameter (test code = 3506097782) 1.99 cm LVOT area (test code = 7062113203) 3.10 cm2 LVIDD (test code = 8078935196) 5.10 cm Left Ventricular End Diastolic Volume by Teichholz Method (test code = 9315199) 123.0 mL IVS (test code = 4563073794) 1.34 cm Interventricular Septum Diastolic Thickness by 2D (test code = 7455101) 1.34 cm LVPWD (test code = 7196789883) 1.34 cm PW (test code = 2985426073) 1.34 cm 0.6-1.1 EF(Teich) (test code = 7657535532) 41.80 % LVIDS (test code = 9090215909) 4.00 cm Left Ventricular End Systolic Volume by Teichholz Method (test code = 7512330) 71.5 mL FS (test code = 5512719685) 21 % EF - 2D (test code = 23971621) 41.80 % LA size (test code = 3030012977) 4.6 cm Pulmonic Regurgitant End Max Velocity (test code = 1400479707) 119.4 cm/s LAV(MOD-sp4) (test code = 6108289604) 95.00 mL E wave decelartion time (test code = 1659922698) 0.15 s MV stenosis pressure 1/2 time (test code = 6386944401) 45.6 ms MV Peak A Evette (test code = 7000114878) 123.8 cm/s MV Peak E Evette (test code = 1002084926) 109.7 cm/s E/A ratio (test code = 1878766773) ratio MR max PG (test code = 5444438321) 87.20 mm[Hg] MR max evette (test code = 8120707961) 466.90 cm/s Mr max evette (test code = 2643603319) 466.9 m/s MV Prop V (test code = 8092717835) 51.00 cm/s MV E/e' septal (test code = 0482785154) 8.1 cm/s Tapse (test code = 3204090236) 2.21 cm LVOT stroke volume (test code = 2113750927) 49.80 cm3 LVOT peak evette (test code = 4380580173) 89.1 cm/s LVOT mn grad (test code = 9440794720) mmHg AV LVOT peak gradient (test code = 5353243387) mmHg LVOT peak VTI (test code = 0213143125) 16.0 cm LV V1 mean (test code = 0581679470) 64.30 cm/s Aortic valve mean velocity (test code = 0683833041) 133.8 cm/s Ao peak evette (test code = 1145262841) 175.3 cm/s Ao VTI (test code = 9859713831) 32.2 cm AV area by cont VTI (test code = 1735311297) 1.6 cm2 AV area peak evette (test code = 0333522421) 1.6 cm2 Ao max PG (test code = 5326855329) 12.30 mm[Hg] AV peak gradient (test code = 5947801552) mmHg AV valve area (test code = 4231141420) 1.55 cm2 AV mean gradient (test code = 2966883565) mmHg AV regurgitation pressure 1/2 time (test code = 1988909293) 358.5 ms AI dec slope (test code = 3123886763) 364.20 cm/s2 AI max evette (test code = 7202572856) 445.80 cm/s AI max PG (test code = 1991766945) 79.50 mm[Hg] Radiology Study observation (narrative) (test code = 04691-1) LYNDSAY (test code = LYNDSAY) ?Left?Ventricle: Left [...] mL of Lumason ultrasound enhancing agent used. [facility] 10:43:32* Test Item Value Reference Range Interpretation Comme [facility] POCT GLU (test code = 8442431266) 148 mg/dL 70-110 H Lab Interpretation (test cod e = 62940-3) Abnormal [facility] CenterACTIVATED PARTIAL THRMPLAS [id number] 18:39:45* Test Item Value Reference Range Interpretation Comme [facility] APTT Patient (test code = 3173-2) See_Comment [Automated message] The system which generated this result transmitted reference range: 23 - 38 Seconds. The reference range was not used to interpret this result as normal/abnormal. LYNDSAY (test code = LYNDSAY) The [facility] patient population mean normal value for aPTT is 30 seconds. Lab Interpretation (test code = 81025-3) Normal [facility] CenterPROTHROMBIN TIME / [id number] 18:37:42* Test Item Value Reference Range Interpretation Comme [facility] PROTIME PATIENT (test code = 5964-2) See_Comment [Automated [employer]ashion] The system which generated this result transmitted reference range: 12.0 - 14.7 Seconds. The reference range was not used to interpret this result as normal/abnormal. INR (test code = 6301-6) Normal INR <1.1; Warfarin Therapeutic range 2.0 to 3.0 or 2.5 to 3.5, depending upon the indications. Lab Interpretation (test code = 60735-3) Normal [facility] CenterTROPONIN [id number] 18:32:01* Test Item Value Reference Range Interpretation Comments TROPONIN I (test code = 1681917420) 0.019 ng/mL See_Comment [Automated message] The system [...] of biotin. Lab Interpretation (test code = 51635-0) Normal [facility] CenterN-TERMINAL [id number] 18:29:01* Test Item Value Reference Range Interpretation Comme nts NT-proBNP (test code = 9851500044) 2770 pg/mL See_Comment H [Automated message] The system which generated this result transmitted reference range: <=125. The reference range was not used to interpret this result as normal/abnormal. LYNDSAY (test code = LYNDSAY) Biotin has been reported to cause a negative bias, interpret results relative to patient's use of biotin. Lab Interpretation (test code = 46213-6) [facility]normal [facility] CenterCOMP. METABOLIC PANEL (34518)2022-07-31 18:21:42* Test Item Value Reference Range Interpretation Comme nts NA (test code = 1560003712) 136 mmol/L 135-145 K (test code = 1365898146) 4.6 mmol/L 3.5-5.0 CL (test code = 9014276655) 104 mmol/L 98-108 CO2 TOTAL (test code = 9077076785) 26 mmol/L 23-31 AGAP (test code = 7240934991) 2-16 BUN (test code = 2003342231) 9 mg/dL 7-23 GLUCOSE (test code = 0452712606) 97 mg/dL 70-110 CREATININE (test code = 9775152642) 0.64 mg/dL 0.50-1.04 TOTAL BILI (test code = 0013737029) 0.5 mg/dL 0.1-1.1 CALCIUM (test code = 5801620994) 8.2 mg/dL 8.6-10.6 L T PROTEIN (test code = 0218974768) 6.5 g/dL 6.3-8.2 ALBUMIN (test code = 7939493935) 3.9 g/dL 3.5-5.0 ALK PHOS (test code = 9941825477) 93 U/L 34-122 ALTv (test code = 1742-6) 18 U/L 5-35 AST(SGOT) (test code = 5495038570) 19 U/L 13-40 eGFR (test code = 5310790493) mL/min/1.73m2 LYNDSAY (test code = LYNDSAY) Association [...] imaging tests). Lab Interpretation (test code = 09306-0) [facility]normal [facility] CenterLIPASE2023-01-12 18:21:01* Test Item Value Reference Range Interpretation Comme nts LIPASE (test code = 5754215321) 54 U/L 0-220 Lab Interpretation (test cod e = 19976-1) Normal [facility] WITH [id number] 18:07:00* Test Item Value Reference Range Interpretation [...] g/dL 31.6-35.1 L RDW-SD (test code = 87724-3) 53.1 fL 39.0-49.9 H RDW-CV (test code = 788-0) 17.0 % 12.0-15.5 H PLT (test code = 777-3) See_Comment H [Automated messa ge] The system which generated this result transmitted reference range: 166 - 358 10*3/?L. The reference range was not used to interpret this result as normal/abnormal. MPV (test code = 46746-0) 8.2 fL 9.5-12.9 L NRBC/100 WBC (test code = 0649422013) See_Comment [Automated me ssage] The system which generated this result transmitted reference range: 0.0 - 10.0 /100 WBCs. The reference range was not used to interpret this result as normal/abnormal. NRBC x10^3 (test code = 2055544482) See_Comment [Automated messa ge] The system which generated this result transmitted reference range: 10*3/?L. The reference range was not used to interpret this result as normal/abnormal. GRAN MAT (NEUT) % (test code = 770-8) 64.0 % IMM GRAN % (test code = 5756115005) 0.40 % LYMPH % (test code = 736-9) 27.3 % MONO % (test code = 5905-5) 6.5 % EOS % (test code = 713-8) 1.1 % BASO % (test code = 706-2) 0.7 % GRAN MAT x10^3(ANC) (test code = 8737009976) 5.46 10*3/uL 1.88-7.09 IMM GRAN x10^3 (test code = 9061109627) 0.03 10*3/uL 0.00-0.06 LYMPH x10^3 (test code = 731-0) 2.32 10*3/uL 1.32-3.29 MONO x10^3 (test code = 742-7) 0.55 10*3/uL 0.33-0.92 EOS x10^3 (test code = 711-2) 0.09 10*3/uL 0.03-0.39 BASO x10^3 (test code = 704-7) 0.06 10*3/uL 0.01-0.07 Lab Interpretation (test code = 86799-0) Abnormal [facility] METABOLIC PANEL (NA, K, CL, CO2, GLUCOSE, BUN, CREATININE, CA)2022-05-08 06:37:01* Test Item Value Reference Range Interpretation Comme nts NA (test code = 6160736998) 137 mmol/L 135-145 K (test code = 3697552404) 3.8 mmol/L 3.5-5 CL (test code = 6286351379) 103 mmol/L 98-108 CO2 TOTAL (test code = 3833525050) 24 mmol/L 23-31 AGAP (test code = 2760585940) 2-16 BUN (test code = 2268961271) 13 mg/dL 7-23 GLUCOSE (test code = 0349573600) 90 mg/dL 70-110 CREATININE (test code = 6908005622) 0.69 mg/dL 0.5-1.04 CALCIUM (test code = 8651860483) 8.5 mg/dL 8.6-10.6 L eGFR (test code = 0125724507) mL/min/1.73m2 LYNDSAY (test code = LYNDSAY) Association [...] imaging tests). Lab Interpretation (test code = 29565-4) [facility]normal [facility] CenterMAGNESIUM2022-10-20 06:37:01* Test Item Value Reference Range Interpretation Comme nts MAGNESIUM (test code = 5209597210) 2.1 mg/dL 1.7-2.4 Lab Interpretation (test cod e = 93084-2) Normal [facility] CenterPHOSPHORUS2022-10-20 06:37:01* Test Item Value Reference Range Interpretation Comme nts PHOSPHORUS (test code = 2874365786) 4.7 mg/dL 2.5-5 Lab Interpretation (test cod e = 31402-5) Normal [facility] WITH [id number] 06:11:54* Test Item Value Reference Range Interpretation [...] 32.4 g/dL 31.6-35.1 RDW-SD (test code = 32536-3) 51.0 fL 39-49.9 H RDW-CV (test code = 788-0) 16.5 % 12-15.5 H PLT (test code = 777-3) See_Comment H [Automated messa ge] The system which generated this result transmitted reference range: 166 - 358 10*3/?L. The reference range was not used to interpret this result as normal/abnormal. MPV (test code = 61266-4) 8.3 fL 9.5-12.9 L NRBC/100 WBC (test code = 5491880682) See_Comment [Automated Beyond the Box ssage] The system which generated this result transmitted reference range: 0.0 - 10.0 /100 WBCs. The reference range was not used to interpret this result as normal/abnormal. NRBC x10^3 (test code = 3038668675) See_Comment [Automated messa ge] The system which generated this result transmitted reference range: 10*3/?L. The reference range was not used to interpret this result as normal/abnormal. GRAN MAT (NEUT) % (test code = 770-8) 64.5 % IMM GRAN % (test code = 8493595914) 0.50 % LYMPH % (test code = 736-9) 27.1 % MONO % (test code = 5905-5) 6.6 % EOS % (test code = 713-8) 0.6 % BASO % (test code = 706-2) 0.7 % GRAN MAT x10^3(ANC) (test code = 4803918389) 5.28 10*3/uL 1.88-7.09 IMM GRAN x10^3 (test code = 1234985540) 0.04 10*3/uL 0-0.06 LYMPH x10^3 (test code = 731-0) 2.22 10*3/uL 1.32-3.29 MONO x10^3 (test code = 742-7) 0.54 10*3/uL 0.33-0.92 EOS x10^3 (test code = 711-2) 0.05 10*3/uL 0.03-0.39 BASO x10^3 (test code = 704-7) 0.06 10*3/uL 0.01-0.07 Lab Interpretation (test code = 57023-6) [facility]normal [facility]-07 01:18:10* Test Item Value Reference Range Interpretation Comme nts POCT GLU (test code = 5327161379) 120 mg/dL 70-110 H Lab Interpretation (test cod e = 30353-4) Abnormal [facility] CenterType and Screen - ONCE Oxwomdo0362-11-06 05:46:35* Test Item Value Reference Range Interpretation Comme nts ABO & RH (test code = 20) O POSITIVE Performed at [facility] Laboratory Services - [facility] Blood [address] [address]Bvrn Free: [phone] No. [id number] IAT (test code = 1185) Negative Performed at [facility] Laboratory Services [facility] Blood [place] [address]Toll Free: [phone] No. [id number] [facility] CenterBASI METABOLIC PANEL (NA, K, CL, CO2, GLUCOSE, BUN, CREATININE, CA)2022-05-05 08:22:57* Test Item Value Reference Range Interpretation Comme nts NA (test code = 1964363768) 136 mmol/L 135-145 K (test code = 0923868249) 4.9 mmol/L 3.5-5 CL (test code = 8957268142) 108 mmol/L 98-108 CO2 TOTAL (test code = 2540456315) 22 mmol/L 23-31 L AGAP (test code = 9224839602) 2-16 BUN (test code = 7671419296) 12 mg/dL 7-23 GLUCOSE (test code = 5195118152) 155 mg/dL 70-110 H CREATININE (test code = 3060720941) 0.63 mg/dL 0.5-1.04 CALCIUM (test code = 7503303981) 8.4 mg/dL 8.6-10.6 L eGFR (test code = 0617670230) mL/min/1.73m2 LYNDSAY (test code = LYNDSAY) Association [...] imaging tests). Lab Interpretation (test code = 29901-4) Abnormal [facility] CenterPROTHROMBIN TIME / [id number] 08:22:37* Test Item Value Reference Range Interpretation [...] the indications. Lab Interpretation (test code = 03125-0) Normal [facility] CenteraPTT2022-10-17 08:22:37* Test Item Value Reference Range Interpretation Comme [facility] APTT Patient (test code = 3173-2) See_Comment [Automated messa ge] The system which generated this result transmitted reference range: 26 - 36 Seconds. The reference range was not used to interpret this result as normal/abnormal. Lab Interpretation (test code = 85305-0) Normal [facility] CenterFIBRINOGEN2022-10-17 08:22:37* Test Item Value Reference Range Interpretation Comme [facility] Fibrinogen (test code = 2728392030) 294 mg/dL 167-453 Lab Interpretation (test cod e = 39775-0) Normal [facility] CenterCBC WITH [id number] 08:15:01* Test Item Value Reference Range Interpretation [...] g/dL 31.6-35.1 L RDW-SD (test code = 14146-7) 52.9 fL 39-49.9 H RDW-CV (test code = 788-0) 16.8 % 12-15.5 H PLT (test code = 777-3) See_Comment H [Automated messa ge] The system which generated this result transmitted reference range: 166 - 358 10*3/?L. The reference range was not used to interpret this result as normal/abnormal. MPV (test code = 27814-8) 8.3 fL 9.5-12.9 L NRBC/100 WBC (test code = 2228920144) See_Comment [Automated Beyond the Box ssage] The system which generated this result transmitted reference range: 0.0 - 10.0 /100 WBCs. The reference range was not used to interpret this result as normal/abnormal. NRBC x10^3 (test code = 0755881553) See_Comment [Automated messa ge] The system which generated this result transmitted reference range: 10*3/?L. The reference range was not used to interpret this result as normal/abnormal. GRAN MAT (NEUT) % (test code = 770-8) 86.4 % IMM GRAN % (test code = 6526539827) 0.40 % LYMPH % (test code = 736-9) 11.7 % MONO % (test code = 5905-5) 1.1 % EOS % (test code = 713-8) 0.0 % BASO % (test code = 706-2) 0.4 % GRAN MAT x10^3(ANC) (test code = 3289773523) 6.36 10*3/uL 1.88-7.09 IMM GRAN x10^3 (test code = 3335141034) 0.03 10*3/uL 0-0.06 LYMPH x10^3 (test code = 731-0) 0.86 10*3/uL 1.32-3.29 L MONO x10^3 (test code = 742-7) 0.08 10*3/uL 0.33-0.92 L EOS x10^3 (test code = 711-2) 0.03-0.39 L BASO x10^3 (test code = 704-7) 0.03 10*3/uL 0.01-0.07 Lab Interpretation (test code = 17000-3) Abnormal [facility] CenterVITAMIN D, [id number] 20:14:03* Test Item Value Reference Range Interpretation Comme nts VIT D 25OH (test code = 64195-8) 22 ng/mL 25-80 L LYNDSAY (test code = LYNDSAY) Deficiency: <20 ng/mLInsufficiency: 20-24 ng/mLOptimal: 25-80 ng/mL Lab Interpretation (test code = 06451-5) [facility]normal [facility] (NA, K, CL, CO2, GLUCOSE, BUN, CREATININE, CA)2022-04-15 11:27:57* Test Item Value Reference Range Interpretation Comme [facility] NA (test code = 4285839307) 138 mmol/L 135-145 K (test code = 5065590514) 3.9 mmol/L 3.5-5 CL (test code = 2384373513) 106 mmol/L 98-108 CO2 TOTAL (test code = 9926661333) 23 mmol/L 23-31 AGAP (test code = 3371640956) 2-16 BUN (test code = 4403942654) 10 mg/dL 7-23 GLUCOSE (test code = 3809419386) 91 mg/dL 70-110 CREATININE (test code = 6735512377) 0.65 mg/dL 0.5-1.04 CALCIUM (test code = 3685562199) 8.1 mg/dL 8.6-10.6 L eGFR (test code = 3176102245) mL/min/1.73m2 LYNDSAY (test code = LYNDSAY) Association [...] imaging tests). Lab Interpretation (test code = 77803-9) Abnormal [facility] CenterSTROKE Protocol - Transthoracic echo (TTE) 2022-04-14 22:07:33* Test Item Value Reference Range Interpretation Comme nts Height (test code = 2410677364) in Weight (test code = 3491243544) lbs Systolic BP (test code = 4707679326) mmHg Diastolic BP (test code = 4408613403) mmHg Heart Rate (test code = 4323760333) bpm BSA (test code = 5223048532) 1.94 m2 TASV (test code = 0086706582) 15.5 cm/s LVIDD (test code = 6081411908) 6.00 cm Left Ventricular End Diastolic Volume by Teichholz Method (test code = 1298050) 183.0 mL IVS (test code = 8098923567) 1.09 cm Interventricular Septum Diastolic Thickness by 2D (test code = 7886082) 1.09 cm LVPWD (test code = 9907675487) 0.94 cm PW (test code = 0472056124) 0.94 cm 0.6-1.1 EF(Teich) (test code = 4855158417) 40.30 % LVIDS (test code = 5240595738) 4.80 cm Left Ventricular End Systolic Volume by Teichholz Method (test code = 8085042) 109.2 mL FS (test code = 8354632008) 20 % EF - 2D (test code = 12259669) 40.30 % LVOT diameter (test code = 7073846019) 2.05 cm LVOT area (test code = 6940955059) 3.30 cm2 Ao root diam (test code = 0510730863) 3.10 cm Aortic root (test code = 7585183384) 3.1 cm Ao root annulus (test code = 4880795859) 3.1 cm LA size (test code = 7883503894) 4.2 cm LAV(MOD-sp4) (test code = 9788330868) 64.90 mL MV Peak A Evette (test code = 8324215422) 115.7 cm/s E wave decelartion time (test code = 6993894593) 0.15 s MV Peak E Evette (test code = 6570561773) 106.2 cm/s E/A ratio (test code = 3920207795) ratio LVOT stroke volume (test code = 6423736504) 48.30 cm3 LVOT peak evette (test code = 4409692132) 78.4 cm/s LVOT mn grad (test code = 8571992305) mmHg AV LVOT peak gradient (test code = 1909413520) mmHg LVOT peak VTI (test code = 8034420407) 14.7 cm LV V1 mean (test code = 8092775639) 51.40 cm/s Ao peak evette (test code = 7958132269) 154.7 cm/s AV area peak evette (test code = 9237359547) 1.7 cm2 Ao max PG (test code = 4938449996) 9.60 mm[Hg] AV peak gradient (test code = 8597723024) mmHg AV regurgitation pressure 1/2 time (test code = 5537111438) 257.3 ms AI dec slope (test code = 3635627493) 498.10 cm/s2 AI max evette (test code = 2004401201) 437.60 cm/s AI max PG (test code = 1051541347) 77.80 mm[Hg] Tapse (test code = 5756442344) 2.19 cm LA Volume Index (BP) (test code = 0732619018) 32.0 mL/m2 LA volume (BP) (test code = 1035227313) 62.1 mL LAV(MOD-sp2) (test code = 9410446230) 52.70 mL A4C EF (test code = 6991916825) 44.80 % EF(sp4-el) (test code = 8429915203) 45.20 % SV(MOD-sp4) (test code = 7750271251) 71.20 mL SV(sp4-el) (test code = 5672932691) 73.90 mL LV Diastolic Volume (BP) (test code = 1263986965) 146.3 mL A2C EF (test code = 3801442223) 52.00 % EF(MOD-bp) (test code = 5714181582) 46.70 % EF(sp2-el) (test code = 8122759601) 52.40 % LV Systolic Volume (BP) (test code = 1572095787) 77.9 mL SV(MOD-bp) (test code = 5231854893) 68.40 mL SV(MOD-sp2) (test code = 7448383840) 69.20 mL EF (test code = 6380771658) Left Ventricular Stroke Volume by 2-D Biplane-MOD (test code = 2583988) 68.4 mL Radiology Study observation (narrative) (test code = 35861-3) LYNDSAY (test code = LYNDSAY) ?Left?Ventricle: Left [...] agent used and saline contrast was performed. [facility] 16:48:36* Test Item Value Reference Range Interpretation Comme nts KEPPRA (test code = 8954386972) 12-46 L LYNDSAY (test code = LYNDSAY) Therapeutic range: 12-46 ?g/mL ? ?Toxic: Not well established.Test developed and characteristics determined by [facility] Laboratory Services. Lab Interpretation (test code = 44381-6) [facility]normal [facility] (Na, K, Cl, CO2, Glucose, BUN, Creatinine, Ca)2022-04-14 10:50:11* Test Item Value Reference Range Interpretation Comme [facility] NA (test code = 6001797521) 136 mmol/L 135-145 K (test code = 4133147252) 3.8 mmol/L 3.5-5 CL (test code = 5746139053) 105 mmol/L 98-108 CO2 TOTAL (test code = 2576388969) 25 mmol/L 23-31 AGAP (test code = 6373413921) 2-16 BUN (test code = 0007082494) 9 mg/dL 7-23 GLUCOSE (test code = 4419599807) 101 mg/dL 70-110 CREATININE (test code = 2358321714) 0.66 mg/dL 0.5-1.04 CALCIUM (test code = 3471366925) 8.1 mg/dL 8.6-10.6 L eGFR (test code = 8719026314) mL/min/1.73m2 LYNDSAY (test code = LYNDSAY) Association [...] imaging tests). Lab Interpretation (test code = 81811-7) [facility], [id number] 10:50:11* Test Item Value Reference Range Interpretation Comme nts MAGNESIUM (test code = 7281152659) 1.9 mg/dL 1.7-2.4 Lab Interpretation (test cod e = 01471-2) Normal [facility] CenterThyroid Stimulating [id number] 22:21:44 * Test Item Value Reference Range Interpretation Comme nts TSH (test code = 0267330392) See_Comment Biotin has been reported to cause a negative bias, interpret results relative to patient's use of biotin. [Automated message] The system which generated this result transmitted reference range: 0.45 - 4.70 mIU/L. The reference range was not used to interpret this result as normal/abnormal. Lab Interpretation (test code = 27634-4) Normal [facility] CenterGLYCOSYLATED HEMOGLOBIN (A1C)2022-04-13 21:53:43* Test Item Value Reference Range Interpretation Comme nts HGB A1C (test code = 4548-4) 5.8 % 4-5.7 H LYNDSAY (test code = LYNDSAY) Reference RangesNormal: <5.7%Prediabetes: 5.7 - 6.4%Diabetes: > 6.5% Lab Interpretation (test code = 22611-4) [facility]normal [facility] CenterFASTING LIPID PANEL (89276)(TOTAL CHOLESTEROL, TRIGLYCERIDES, HDL)2022-04-13 21:34:53* Test Item Value Reference Range Interpretation Comme nts CHOL (test code = 7271014289) 201 mg/dL 120-200 H HDL (test code = 2838959975) 56 mg/dL See_Comment [Automated [employer]] The system which generated this result transmitted reference range: >=50. The reference range was not used to interpret this result as normal/abnormal. HDLC RATIO (test code = 7071019867) See_Comment [Automated [employer]ia] The system which generated this result transmitted reference range: <=4.5. The reference range was not used to interpret this result as normal/abnormal. TRIG (test code = 2795867151) 355 mg/dL 30-170 H LDL CHOL (test code = 21445-2) 74 mg/dL See_Comment [Automated JoKnoa ge] The system which generated this result transmitted reference range: <=160. The reference range was not used to interpret this result as normal/abnormal. VLDL (test code = 2331479441) 71 mg/dL 5-60 H Lab Interpretation (test code = 17798-6) Abnormal [facility] CenterTroponin I - Code Pvzqut3877-57-13 18:46:27* Test Item Value Reference Range Interpretation Comments TROPONIN I (test code = 0330467657) 0.013 ng/mL See_Comment [Automated message] The system [...] of biotin. Lab Interpretation (test code = 99257-4) Normal [facility] Metabolic Panel (NA, K, CL, CO2, Glucose, BUN, Creatinine, CA) - Code Raukyv9065-52-25 18:35:07* Test Item Value Reference Range Interpretation Comme nts NA (test code = 0574841400) 136 mmol/L 135-145 K (test code = 3754840391) 4.3 mmol/L 3.5-5 CL (test code = 9913670504) 105 mmol/L 98-108 CO2 TOTAL (test code = 6869712190) 27 mmol/L 23-31 AGAP (test code = 1494642869) 2-16 BUN (test code = 2099370597) 8 mg/dL 7-23 GLUCOSE (test code = 0830723496) 130 mg/dL 70-110 H CREATININE (test code = 1627966495) 0.75 mg/dL 0.5-1.04 CALCIUM (test code = 3932101122) 8.5 mg/dL 8.6-10.6 L eGFR (test code = 2395500976) mL/min/1.73m2 LYNDSAY (test code = LYNDSAY) Association [...] imaging tests). Lab Interpretation (test code = 86375-2) Abnormal [facility] CenteraPTT - Code Ljjsiy9075-14-80 18:32:46* Test Item Value Reference Range Interpretation Comme [facility] APTT Patient (test code = 3173-2) See_Comment [Automated message] The system which generated this result transmitted reference range: 23 - 38 Seconds. The reference range was not used to interpret this result as normal/abnormal. LYNDSAY (test code = LYNDSAY) The [facility] patient population mean normal value for aPTT is 30 seconds. Lab Interpretation (test code = 76851-7) Normal [facility] CenterProthrombin Time / INR - Code Erbmdj8627-05-00 18:30:45* Test Item Value Reference Range Interpretation Comme [facility] PROTIME PATIENT (test code = 5964-2) See_Comment [Automated JoKnoa ge] The system which generated this result transmitted reference range: 12.0 - 14.7 Seconds. The reference range was not used to interpret this result as normal/abnormal. INR (test code = 6301-6) Normal INR <1.1; Warfarin Therapeutic range 2.0 to 3.0 or 2.5 to 3.5, depending upon the indications. Lab Interpretation (test code = 81802-0) Normal [facility] CenterCBC without Diff - Code [id number] 18:23:07* Test Item Value Reference Range Interpretation [...] result as normal/abnormal. MPV (test code = 09313-1) 8.1 fL 9.5-12.9 L RDW-CV (test code = 788-0) 16.1 % 12-15.5 H RDW-SD (test code = 66410-8) 49.2 fL 39-49.9 NRBC x10^3 (test code = 1886478795) See_Comment [Automated messa ge] The system which generated this result transmitted reference range: 10*3/?L. The reference range was not used to interpret this result as normal/abnormal. NRBC/100 WBC (test code = 4121800375) See_Comment [Automated messa ge] The system which generated this result transmitted reference range: 0.0 - 10.0 /100 WBCs. The reference range was not used to interpret this result as normal/abnormal. IPF % (test code = 8050702730) Lab Interpretation (test code = 50463-1) Abnormal [facility] [id number] 21:06:40* Test Item Value Reference Range Interpretation Comments TROPONIN I (test code = 9576286997) 0.005 ng/mL See_Comment [Automated message] The system [...] of biotin. Lab Interpretation (test code = 93103-9) Normal [facility] CenterCOMP. METABOLIC PANEL (40567)2021-11-23 20:55:42* Test Item Value Reference Range Interpretation Comme nts NA (test code = 5715074760) 137 mmol/L 135-145 K (test code = 7973777693) 4.3 mmol/L 3.5-5.0 CL (test code = 0443501144) 104 mmol/L 98-108 CO2 TOTAL (test code = 7112796894) 22 mmol/L 23-31 L AGAP (test code = 8997839618) 2-16 BUN (test code = 9189287447) 15 mg/dL 7-23 GLUCOSE (test code = 6236367000) 114 mg/dL 70-110 H CREATININE (test code = 5999136707) 0.68 mg/dL 0.50-1.04 TOTAL BILI (test code = 9422743088) 0.5 mg/dL 0.1-1.1 CALCIUM (test code = 1082446981) 9.1 mg/dL 8.6-10.6 T PROTEIN (test code = 4885844583) 7.3 g/dL 6.3-8.2 ALBUMIN (test code = 7543356020) 4.4 g/dL 3.5-5.0 ALK PHOS (test code = 1964273591) 243 U/L 34-122 H ALTv (test code = 1742-6) 24 U/L 5-35 AST(SGOT) (test code = 2678111907) 30 U/L 13-40 eGFR (test code = 0478724982) mL/min/1.73m2 LYNDSAY (test code = LYNDSAY) Association [...] imaging tests). Lab Interpretation (test code = 18915-0) Abnormal [facility] CenterLIPASE2022-05-07 20:55:22* Test Item Value Reference Range Interpretation Comme [facility] LIPASE (test code = 1472194404) 96 U/L 0-220 Lab Interpretation (test cod e = 27503-6) Normal [facility] CenterPOCT [id number] 20:46:00* Test Item Value Reference Range Interpretation Comme nts POCT PREG (test code = 1605) negative On board controls acceptable with C Line (test code = 3574) present POCT PREG LOT # (test code = 3575) [id number] POCT PREG TEST DATE ( test code = 3576) 04/18/2023 Lab Interpretation (test cod e = 38734-8) Normal [facility] WITH [id number] 20:40:38* Test Item Value Reference Range Interpretation [...] 31.8 g/dL 31.6-35.1 RDW-SD (test code = 14794-2) 53.7 fL 39.0-49.9 H RDW-CV (test code = 788-0) 17.2 % 12.0-15.5 H PLT (test code = 777-3) See_Comment H [Automated messa ge] The system which generated this result transmitted reference range: 166 - 358 10*3/?L. The reference range was not used to interpret this result as normal/abnormal. MPV (test code = 57360-7) 8.5 fL 9.5-12.9 L NRBC/100 WBC (test code = 7448746413) See_Comment [Automated me ssage] The system which generated this result transmitted reference range: 0.0 - 10.0 /100 WBCs. The reference range was not used to interpret this result as normal/abnormal. NRBC x10^3 (test code = 0962575036) <0.01 See_Comment [Automated messa ge] The system which generated this result transmitted reference range: 10*3/?L. The reference range was not used to interpret this result as normal/abnormal. GRAN MAT (NEUT) % (test code = 770-8) 53.7 % IMM GRAN % (test code = 6860090858) 0.90 % LYMPH % (test code = 736-9) 32.6 % MONO % (test code = 5905-5) 10.1 % EOS % (test code = 713-8) 1.5 % BASO % (test code = 706-2) 1.2 % GRAN MAT x10^3(ANC) (test code = 0959815223) 4.98 10*3/uL 1.88-7.09 IMM GRAN x10^3 (test code = 9396437124) 0.08 10*3/uL 0.00-0.06 H LYMPH x10^3 (test code = 731-0) 3.02 10*3/uL 1.32-3.29 MONO x10^3 (test code = 742-7) 0.94 10*3/uL 0.33-0.92 H EOS x10^3 (test code = 711-2) 0.14 10*3/uL 0.03-0.39 BASO x10^3 (test code = 704-7) 0.11 10*3/uL 0.01-0.07 H Lab Interpretation (test code = 50810-5) [facility]normal [facility] CenterPO[facility] GLUCOSE (AUTOMATED)2021-11-23 20:17:33* Test Item Value Reference Range Interpretation Comme nts POCT GLU (test code = 1223141063) 111 mg/dL 70-110 H Notified Provide r Lab Interpretation (test code = 09599-3) Abnormal [facility] CenterPAP TEST, THINPREP, [id number] 00:00:00 * Test Item Value Reference Range Interpretation Comme nts SOURCE: (test code = 8001) Endocervical SLIDES: (test code = 8011) 1 LMP: (test code = 8021) 06/03/2021 SPECIMEN ADEQUACY: (test code = 49534) (NOTE) INTERPRETATION: (test code = 51016) ASCUS/EPITH. ABNORMALITY; SEE BELOW DIGITAL STRATEGY MANAGER: (test code = 8101) CHANA Thacker(ASCP)[facility] PATHOLOGIST INTERPRETATION BY: (test code = 8122) Nahid Russell M.D. LOCATION: (test code = 55018) (NOTE) CPT: (test code = 8140) (NOTE) PAP TEST, THINPREP, [id number] 00:00:00* Test Item Value Reference Range Interpretation Comme nts SOURCE: (test code = 8001) Endocervical SLIDES: (test code = 8011) 1 LMP: (test code = 8021) 06/03/2021 SPECIMEN ADEQUACY: (test code = 81554) (NOTE) INTERPRETATION: (test code = 94489) ASCUS/EPITH. ABNORMALITY; SEE BELOW DIGITAL STRATEGY MANAGER: (test code = 8101) CHANA Thacker(ASCP)[facility] PATHOLOGIST INTERPRETATION BY: (test code = 8122) Nahid Russell M.D. LOCATION: (test code = 92522) (NOTE) CPT: (test code = 8140) (NOTE) HPV HIGH RISK WITH GENOTYPE, [id number] 00:00:00* Test Item Value Reference Range Interpretation Comme nts HPV HIGH RISK INTERP (test c ode = 72070) POSITIVE HPV 16 (test code = 07369) POSITIVE HPV 18 (test code = 11595) NEGATIVE HPV, HR, OTHER GENOTYPES (te st code = 00839) POSITIVE HPV HIGH RISK WITH GENOTYPE, [id number] 00:00:00* Test Item Value Reference Range Interpretation Comme nts HPV HIGH RISK INTERP (test c ode = 95807) POSITIVE HPV 16 (test code = 09476) POSITIVE HPV 18 (test code = 06620) NEGATIVE HPV, HR, OTHER GENOTYPES (te st code = 65123) POSITIVE [id number] 03:22:48* Test Item Value Reference Range Interpretation Comme nts APPEARANCE (test code = 4697051437) Hazy Clear A COLOR (test code = 4299267291) Yellow Yellow PH (test code = 3074600583) 4.8-8.0 SP GRAVITY (test code = 5978042604) 1.003-1.030 GLU U QUAL (test code = 0311346297) Normal Normal BLOOD (test code = 8145972400) Negative Negative Interference fro m ascorbic acid may cause false negative results. KETONES (test code = 8380001533) 5 mg/dL Negative A PROTEIN (test code = 2887-8) Negative Negative UROBILIN (test code = 7154590231) 4.0 mg/dL Normal A BILIRUBIN (test code = 6200092969) Negative Negative NITRITE (test code = 7667289512) Negative Negative LEUK GRUPO (test code = 5392799598) Negative Negative RBC/HPF (test code = 2512275753) See_Comment [Automated [employer]] The system which generated this result transmitted reference range: 0 - 3 HPF. The reference range was not used to interpret this result as normal/abnormal. WBC/HPF (test code = 6885641852) <1 See_Comment [Automated JoKnoa ge] The system which generated this result transmitted reference range: 0 - 5 HPF. The reference range was not used to interpret this result as normal/abnormal. BACTERIA (test code = 0697871133) Few Negative A SQ EPITH (test code = 6333699855) HPF Lab Interpretation (test code = 38117-5) [facility]normal [facility] CenterURINALYSIS2021-08-29 03:22:48* Test Item Value Reference Range Interpretation Comme nts APPEARANCE (test code = 8491318283) Hazy Clear A COLOR (test code = 8771253983) Yellow Yellow PH (test code = 0317456305) 4.8-8.0 SP GRAVITY (test code = 9589231925) 1.003-1.030 GLU U QUAL (test code = 6805098421) Normal Normal BLOOD (test code = 9606813721) Negative Negative KETONES (test code = 9871779057) 5 mg/dL Negative A PROTEIN (test code = 2887-8) Negative Negative UROBILIN (test code = 1206997637) 4.0 mg/dL Normal A BILIRUBIN (test code = 8260357640) Negative Negative NITRITE (test code = 0206559409) Negative Negative LEUK GRUPO (test code = 1566781167) Negative Negative RBC/HPF (test code = 8383932822) See_Comment [Automated JoKnoa ge] The system which generated this result transmitted reference range: 0 - 3 HPF. The reference range was not used to interpret this result as normal/abnormal. WBC/HPF (test code = 5772907231) <1 See_Comment [Automated [employer]] The system which generated this result transmitted reference range: 0 - 5 HPF. The reference range was not used to interpret this result as normal/abnormal. BACTERIA (test code = 6606554818) Few Negative A SQ EPITH (test code = 7824251901) HPF Lab Interpretation (test code = 38012-6) Abnormal [facility] [id number] 02:45:00* Test Item Value Reference Range Interpretation Comments TROPONIN I (test code = 7964653606) 0.002 ng/mL See_Comment [Automated message] The system [...] of biotin. Lab Interpretation (test code = 04503-9) Normal [facility] [id number] 02:45:00* Test Item Value Reference Range Interpretation Comme nts TROPONIN I (test code = 9575792430) 0.002 ng/mL See_Comment [Automated [employer]] The system which generated this result transmitted reference range: <=0.034. The reference range was not used to interpret this result as normal/abnormal. LYNDSAY (test code = LYNDSAY) Lab Interpretation (test code = 57105-0) Normal [facility] CenterN-TERMINAL [id number] 02:41:57* Test Item Value Reference Range Interpretation Comme nts NT-proBNP (test code = 5430778640) 169 pg/mL See_Comment H [Automated message] The system which generated this result transmitted reference range: <=125. The reference range was not used to interpret this result as normal/abnormal. LYNDSAY (test code = LYNDSAY) Biotin has been reported to cause a negative bias, interpret results relative to patient's use of biotin. Lab Interpretation (test code = 31370-9) Abnormal [facility] CenterN-TERMINAL [id number]-[id number] 02:41:57* Test Item Value Reference Range Interpretation Comme nts NT-proBNP (test code = 9340719212) 169 pg/mL See_Comment H [Automated JoKnoa ge] The system which generated this result transmitted reference range: <=125. The reference range was not used to interpret this result as normal/abnormal. LYNDSAY (test code = LYNDSAY) Lab Interpretation (test code = 17607-5) [facility]normal [facility] CenterCOMP. METABOLIC PANEL (59899)2021-03-17 02:09:13* Test Item Value Reference Range Interpretation Comme nts NA (test code = 1583934342) 137 mmol/L 135-145 K (test code = 0735337519) 4.2 mmol/L 3.5-5.0 CL (test code = 4583018635) 102 mmol/L 98-108 CO2 TOTAL (test code = 5742857347) 25 mmol/L 23-31 AGAP (test code = 3542957232) 2-16 BUN (test code = 7822892193) 18 mg/dL 7-23 GLUCOSE (test code = 2006011998) 144 mg/dL 70-110 H CREATININE (test code = 8909054194) 0.77 mg/dL 0.50-1.04 TOTAL BILI (test code = 1061829791) 0.4 mg/dL 0.1-1.1 CALCIUM (test code = 2861494298) 8.9 mg/dL 8.6-10.6 T PROTEIN (test code = 0897031006) 6.8 g/dL 6.3-8.2 ALBUMIN (test code = 2592370796) 3.9 g/dL 3.5-5.0 ALK PHOS (test code = 2504816125) 84 U/L 34-122 ALTv (test code = 1742-6) 13 U/L 5-35 AST(SGOT) (test code = 5448378918) 17 U/L 13-40 eGFR (test code = 3559178776) mL/min/1.73m2 LYNDSAY (test code = LYNDSAY) Association [...] imaging tests). Lab Interpretation (test code = 18922-0) Abnormal [facility]. METABOLIC PANEL (20433)2021-03-17 02:09:13* Test Item Value Reference Range Interpretation Comme nts NA (test code = 7848272280) 137 mmol/L 135-145 K (test code = 6505347207) 4.2 mmol/L 3.5-5.0 CL (test code = 8053050983) 102 mmol/L 98-108 CO2 TOTAL (test code = 4764064030) 25 mmol/L 23-31 AGAP (test code = 9040276335) 2-16 BUN (test code = 5782240637) 18 mg/dL 7-23 GLUCOSE (test code = 8994288064) 144 mg/dL 70-110 H CREATININE (test code = 7621897983) 0.77 mg/dL 0.50-1.04 TOTAL BILI (test code = 4640491194) 0.4 mg/dL 0.1-1.1 CALCIUM (test code = 9089528254) 8.9 mg/dL 8.6-10.6 T PROTEIN (test code = 9705086995) 6.8 g/dL 6.3-8.2 ALBUMIN (test code = 1093230363) 3.9 g/dL 3.5-5.0 ALK PHOS (test code = 4241858231) 84 U/L 34-122 ALTv (test code = 1742-6) 13 U/L 5-35 AST(SGOT) (test code = 0163914114) 17 U/L 13-40 eGFR (test code = 9345184228) mL/min/1.73m2 LYNDSAY (test code = LYNDSAY) Lab Interpretation (test cod e = 06617-7) Abnormal [facility] WITH [id number] 01:56:33* Test Item Value Reference Range Interpretation Comme nts WBC (test code = 6690-2) See_Comment H [Automated [employer]] The system which generated this result transmitted reference range: 4.30 - 11.10 10*3/?L. The reference range was not used to interpret this result as normal/abnormal. RBC (test code = 789-8) See_Comment [Automated [employer]] The system which generated this result transmitted [...] g/dL 31.6-35.1 L RDW-SD (test code = 21612-2) 55.5 fL 39.0-49.9 H RDW-CV (test code = 788-0) 18.9 % 12.0-15.5 H PLT (test code = 777-3) See_Comment H [Automated messa ge] The system which generated this result transmitted reference range: 166 - 358 10*3/?L. The reference range was not used to interpret this result as normal/abnormal. MPV (test code = 05649-7) 8.2 fL 9.5-12.9 L NRBC/100 WBC (test code = 5523107362) See_Comment [Automated me ssage] The system which generated this result transmitted reference range: 0.0 - 10.0 /100 WBCs. The reference range was not used to interpret this result as normal/abnormal. NRBC x10^3 (test code = 7044974066) <0.01 See_Comment [Automated messa ge] The system which generated this result transmitted reference range: 10*3/?L. The reference range was not used to interpret this result as normal/abnormal. GRAN MAT (NEUT) % (test code = 770-8) 61.7 % IMM GRAN % (test code = 7376895908) 0.80 % LYMPH % (test code = 736-9) 28.5 % MONO % (test code = 5905-5) 6.3 % EOS % (test code = 713-8) 1.8 % BASO % (test code = 706-2) 0.9 % GRAN MAT x10^3(ANC) (test code = 6974824227) 7.31 10*3/uL 1.88-7.09 H IMM GRAN x10^3 (test code = 7564061270) 0.09 10*3/uL 0.00-0.06 H LYMPH x10^3 (test code = 731-0) 3.38 10*3/uL 1.32-3.29 H MONO x10^3 (test code = 742-7) 0.75 10*3/uL 0.33-0.92 EOS x10^3 (test code = 711-2) 0.21 10*3/uL 0.03-0.39 BASO x10^3 (test code = 704-7) 0.11 10*3/uL 0.01-0.07 H Lab Interpretation (test code = 73886-4) Abnormal [facility] WITH [id number] 01:56:33* Test Item Value Reference Range Interpretation [...] g/dL 31.6-35.1 L RDW-SD (test code = 25412-8) 55.5 fL 39.0-49.9 H RDW-CV (test code = 788-0) 18.9 % 12.0-15.5 H PLT (test code = 777-3) See_Comment H [Automated messa ge] The system which generated this result transmitted reference range: 166 - 358 10*3/?L. The reference range was not used to interpret this result as normal/abnormal. MPV (test code = 11583-7) 8.2 fL 9.5-12.9 L NRBC/100 WBC (test code = 5801390338) See_Comment [Automated Beyond [employer] ssage] The system which generated this result transmitted reference range: 0.0 - 10.0 /100 WBCs. The reference range was not used to interpret this result as normal/abnormal. NRBC x10^3 (test code = 9598385342) <0.01 See_Comment [Automated messa ge] The system which generated this result transmitted reference range: 10*3/?L. The reference range was not used to interpret this result as normal/abnormal. GRAN MAT (NEUT) % (test code = 770-8) 61.7 % IMM GRAN % (test code = 7582751404) 0.80 % LYMPH % (test code = 736-9) 28.5 % MONO % (test code = 5905-5) 6.3 % EOS % (test code = 713-8) 1.8 % BASO % (test code = 706-2) 0.9 % GRAN MAT x10^3(ANC) (test code = 9229753906) 7.31 10*3/uL 1.88-7.09 H IMM GRAN x10^3 (test code = 1335700724) 0.09 10*3/uL 0.00-0.06 H LYMPH x10^3 (test code = 731-0) 3.38 10*3/uL 1.32-3.29 H MONO x10^3 (test code = 742-7) 0.75 10*3/uL 0.33-0.92 EOS x10^3 (test code = 711-2) 0.21 10*3/uL 0.03-0.39 BASO x10^3 (test code = 704-7) 0.11 10*3/uL 0.01-0.07 H Lab Interpretation (test code = 14343-3) [facility] NOW RAPID TESTING)2021-03-17 01:38:12* Test Item Value Reference Range Interpretation Comme nts SARS-CoV-2 Rapid ID NOW (test code = 76925-0) Not Detected Not Detected LYNDSAY (test code = LYNDSAY) ID NOW COVID-19 As say is an isothermal nucleic acid amplification test intended for the qualitative detection of nucleic acid from SARS-CoV-2 viral RNA in nasopharyngeal (SLATE ROOFER) specimens. It is used under Emergency Use [...] clinically indicated. Lab Interpretation (test code = 01692-5) [facility] (ID NOW RAPID TESTING)2021-03-17 01:38:12* Test Item Value Reference Range Interpretation Comme nts SARS-CoV-2 Rapid ID NOW (raisa t code = 09892-3) Not Detected Not Detected LYNDSAY (test code = LYNDSAY) Lab Interpretation (test cod e = 98044-0) Normal [facility]-19 (ID NOW RAPID TESTING)2021-02-19 17:42:45* Test Item Value Reference Range Interpretation Comme nts SARS-CoV-2 Rapid ID NOW (test code = 29358-4) Not Detected Not Detected LYNDSAY (test code = LYNDSAY) ID NOW COVID-19 As say is an isothermal nucleic acid amplification test intended for the qualitative detection of nucleic acid from SARS-CoV-2 viral RNA in nasopharyngeal (SLATE ROOFER) specimens. It is used under Emergency Use [...] clinically indicated. Lab Interpretation (test code = 40077-8) Normal [facility] W [id number] 17:24:55Thickening of the gastric antrum and duodenal bulb could be fromunderdistention, the differential would include sequela of peptic ulcerdisease. No findings of ulcer perforation. Otherwise, no acute intra- abdominal or pelvic abnormality. Stable thickening and nodularity of the left adrenal gland. RL: [id number] Patient name: HEATHER GUY: 1970 51 years EXAMINATION: CT ABDOMEN PELVIS W CONTRAST Ordering Physician: ESTEFANIA LEMONS CLINICAL HISTORY:Abdominal pain, acute, nonlocalized COMPARISON:11/21/2015 TECHNIQUE:Helical [...] CT ABDOMEN PELVIS W CONTRASTOrdering Physician: ESTEFANIA LEMONS CLINICAL HISTORY:Abdominal pain, acute, nonlocalized COMPARISON:11/21/2015TECHNIQUE:Helical CT [...] Electronicallysigned by James Freeman at 02/19/2021 12:24 PMGr[facility] CenterUrinalysis2021-08-03 17:03:40* Test Item Value Reference Range Interpretation Comme nts APPEARANCE (test code = 5179936608) Hazy Clear A COLOR (test code = 3800936623) Mabel Yellow A PH (test code = 1240954051) 4.8-8.0 SP GRAVITY (test code = 8500188025) 1.003-1.030 H GLU U QUAL (test code = 3053984249) Normal Normal BLOOD (test code = 2299959234) Negative Negative KETONES (test code = 8676162644) 5 mg/dL Negative A PROTEIN (test code = 2887-8) 30 mg/dL Negative A UROBILIN (test code = 5616218885) 4.0 mg/dL Normal A BILIRUBIN (test code = 3937436968) 4 mg/dL Negative A NITRITE (test code = 7370316304) Negative Negative LEUK GRUPO (test code = 4426577771) Negative Negative RBC/HPF (test code = 9997288914) See_Comment H [Automated messa ge] The system which generated this result transmitted reference range: 0 - 3 HPF. The reference range was not used to interpret this result as normal/abnormal. WBC/HPF (test code = 5329435548) See_Comment H [Automated messa ge] The system which generated this result transmitted reference range: 0 - 5 HPF. The reference range was not used to interpret this result as normal/abnormal. BACTERIA (test code = 2165144335) Few Negative A MUCOUS (test code = 2810796751) Moderate Negative LPF A SQ EPITH (test code = 3355327061) HPF CA OXALATE (test code = 6690006688) See_Comment H [Automated messa ge] The system which generated this result transmitted reference range: <=1 HPF. The reference range was not used to interpret this result as normal/abnormal. Ictotest (test code = 6208222152) Negative Lab Interpretation (test code = 78317-2) [facility] [id number] 16:34:55* Test Item Value Reference Range Interpretation Comme nts NA (test code = 4923576313) 139 mmol/L 135-145 K (test code = 7722767464) 4.3 mmol/L 3.5-5.0 CL (test code = 6366637869) 105 mmol/L 98-108 CO2 TOTAL (test code = 2911237247) 26 mmol/L 23-31 AGAP (test code = 3514874688) 2-16 BUN (test code = 7364280136) 11 mg/dL 7-23 GLUCOSE (test code = 6265058029) 95 mg/dL 70-110 CREATININE (test code = 7148711885) 0.70 mg/dL 0.50-1.04 TOTAL BILI (test code = 9854508839) 0.6 mg/dL 0.1-1.1 CALCIUM (test code = 8604210873) 8.9 mg/dL 8.6-10.6 T PROTEIN (test code = 9335706265) 7.7 g/dL 6.3-8.2 ALBUMIN (test code = 7808588157) 4.1 g/dL 3.5-5.0 ALK PHOS (test code = 3054735035) 79 U/L 34-122 ALTv (test code = 1742-6) 10 U/L 5-35 AST(SGOT) (test code = 1735432855) 22 U/L 13-40 eGFR (test code = 7050662201) mL/min/1.73m2 LYNDSAY (test code = LYNDSAY) Association [...] or urine or abnormalities in imaging tests). [facility], [id number] 16:34:14* Test Item Value Reference Range Interpretation Comme nts LIPASE (test code = 1908320998) 45 U/L 0-220 Lab Interpretation (test cod e = 09468-3) Normal [facility] with [id number] 16:21:12* Test Item Value Reference Range Interpretation Comme nts WBC (test code = 6690-2) See_Comment [Automated Affashion] The system which generated this result transmitted [...] g/dL 31.6-35.1 L RDW-SD (test code = 22521-3) 54.4 fL 39.0-49.9 H RDW-CV (test code = 788-0) 18.3 % 12.0-15.5 H PLT (test code = 777-3) See_Comment H [Automated messa ge] The system which generated this result transmitted reference range: 166 - 358 10*3/?L. The reference range was not used to interpret this result as normal/abnormal. MPV (test code = 38384-8) 8.5 fL 9.5-12.9 L NRBC/100 WBC (test code = 1634149290) See_Comment [Automated Beyond the Box ssage] The system which generated this result transmitted reference range: 0.0 - 10.0 /100 WBCs. The reference range was not used to interpret this result as normal/abnormal. NRBC x10^3 (test code = 7914225631) <0.01 See_Comment [Automated messa ge] The system which generated this result transmitted reference range: 10*3/?L. The reference range was not used to interpret this result as normal/abnormal. GRAN MAT (NEUT) % (test code = 770-8) 78.3 % IMM GRAN % (test code = 3441473975) 0.40 % LYMPH % (test code = 736-9) 15.4 % MONO % (test code = 5905-5) 4.8 % EOS % (test code = 713-8) 0.1 % BASO % (test code = 706-2) 1.0 % GRAN MAT x10^3(ANC) (test code = 7782389610) 7.15 10*3/uL 1.88-7.09 H IMM GRAN x10^3 (test code = 5871764955) 0.04 10*3/uL 0.00-0.06 LYMPH x10^3 (test code = 731-0) 1.41 10*3/uL 1.32-3.29 MONO x10^3 (test code = 742-7) 0.44 10*3/uL 0.33-0.92 EOS x10^3 (test code = 711-2) <0.03 0.03-0.39 L BASO x10^3 (test code = 704-7) 0.09 10*3/uL 0.01-0.07 H Lab Interpretation (test code = 72005-5) Abnormal [facility] Consult Notes Date/Time Note Provider Source 2025-02-19 14:26:04 Associated Order(s): CONSULT TIMBER TRIMMER-ADULT Images from the original note were not included. CARE MANAGEMENT Care Coordinators/Social Workers/CM Specialists/Utilization Review/Patient Placement & Transfer Center 02/19/2025 2:26 PM Consult received for; Comments Comments: Patient wants to go home and declining inpatient placement. Please talk to the patient and set up wheelchair and home health. Patient wanting to go home. Clear to get dc from our standpoint. Referral made to . Per he will transport the patient to home in private vehicle. T [facility] 2025-02-17 14:32:00 Associated Order(s): CONSULT ADULT PHYSICAL THERAPY Patient agreeable to working with physical therapy. Patient semireclining in bed, Spouse present and Bed alarm engaged. Recommend nursing staff utilize mechanical lift to safely assist patient with mobility out of the bed or chair. PHYSICAL THERAPY EVALUATION Consult received, chart reviewed and evaluation complete this date. Patient is referred to PT for evaluation and treatment. Patient is a 55 year old female who presents to hospital for Seizure [R56.9] . Discharge Recommendations: Therapy Needs and Potential: Patient would benefit from continued physical therapy services to address: decline in bed mobility decline in transfers decline in gait and/or balance decreased strength decreased endurance decreased coordination decreased motor planning Patient appears motivated to improve their functional mobility and return to their previous level of function. Patient exhibits limited activity tolerance. Challenges to Home Transition: increased risk of falls decreased safety awareness environmental barriers Equipment recommendations: wheelchair, hospital bed, mechanical lift, and will update needs as patient progresses. Current Functional Status and/or Treatment: AM-PAC 6 Clicks (Raw Score 0=Dependent, 24=Independent; Low function Raw Score 0= Dependent, 32=Independent): Raw Score - Basic Mobility : 8 T-Scale Score - Basic Mobility : 22.61 Bed Mobility: Reclined to sitting: Moderate Assistance Rolling: Moderate Assistance Patient deferred sitting edge of bed due to pain and weakness. OT reported patient was able to sit edge of bed with assistance for less than 5 minutes only. Dizziness No Transfers: Not appropriate this time due to weakness and pain Ambulation: not appropriate due to weakness and pain Therapeutic exercise: patient educated in Adaptive equipment , Compensatory techniques/adaptive strategies, Fall prevention, General strengthening, Positioning, Relaxation/breathing techniques, and Safety awareness., instructed patient in the following: ankle pumps, heel slides, hip internal/external rotation, patient/caregiver instructed to perform HEP 3 times per day, 3 sets of 10 repetitions., and patient/caregiver demonstrates understanding of instructions. Functional Outcome Measures: (Values within the past 12 hours) FIST Test Item Used step/stool for positioning & foot support: No Anterior nudge: Needs assistance Posterior nudge: Needs assistance Lateral Nudge: Needs assistance Static sitting: Upper extremity support Sitting, shake 'no': Upper extremity support Sitting, eyes closed: Upper extremity support supervising airplane pilot object from behind: dependent Forward reach: Needs assistance Lateral reach: Needs assistance supervising airplane pilot object from floor: dependent Posterior scooting: dependent Anterior scooting: dependent Lateral scooting: dependent FIST Total Score: 11 After session, patient semireclining in bed, Spouse present and Bed alarm engaged. Call button provided. RN notified, PCT aware. PLAN OF CARE: While in the hospital, PT will follow patient at least 3 times per week,once or twice a day, per patient's tolerance and needs. See below for complete details. Admit Date: 02/17/2025 Hospital Diagnosis:Seizure [R56.9] PT Diagnosis: Difficulty walking, Weakness, Malaise/fatigue, Pain, and Abnormality of gait and balance Weight Bearing Precaution: NA General Precautions: PPE used:Gloves, Gown, Surgical mask, Goggles, and boot cover, General, Fall, Telesitter,IV PIV, Oxygen NC. As per chart and RN, patient presents with Lice and staff must elaine proper PPE/ Bracing/Cast present or required:N/A PMH: Past Medical History: Diagnosis Date Anxiety Extreme Bipolar disorder Breast pain 09/18/2015 Cauda equina compression 11/21/2023 diagnosed 08/2023 Congestive heart failure 2021 COPD (chronic obstructive pulmonary disease) Diverticulitis Epilepsy Hypertension AK (myocardial infarction) 07/20/2007 Slipped disc Stomach cancer Substance abuse Marijuana daily-for anxiety PSH: Past Surgical History: Procedure Laterality Date ANTERIOR CERVICAL FUSION CHOLECYSTECTOMY HAND/FINGER SURGERY UNLISTED Bilateral 3 L hand, 3 R hand METATARSAL OSTEOTOMY Right 08/14/2015 Surgeon: Luis Jones Jr., ESTHER; Location: [facility] [place], [place] TONSILLECTOMY PRIOR LIVING SITUATION: Lives with spouse in an , 09/02 supervision/assistance is available. , DME: Four wheeled walker with seat Prior level of Mobility: house hold ambulation, ambulates with four wheeled walker with seat but already broken. Patient stated has not been waling for 3 weeks now. Suspected ischemic or hemorraghic stroke:No Subjective: Patient in bed and agreeable to Physical Therapy session. Patient reports " Not good" Patient/Family Goals: regain strength and able to walk Patient/Family verbalizes understanding of condition: Yes PAIN: -Pain Description: aching and variable -Pain Location: right leg, left leg, and diffuse/generalized -Pain rating before treatment: does not rate, After treatment: does not rate -Pain Management: Nursing Notified, Decreased movement aides in some pain reduction, and Repositioning Provided COMMUNICATION Primary Language: Central [place] Able to Verbalize needs: Yes Vision:good; no issues reported and glasses Hearing:good; no issues reported ORIENTATION/COGNITION: Oriented to: person, place, date/time, and situation Awake: Yes Alert: Yes Dizzy: No Follows Commands: Yes 1-Step Yes Multi-Step No Inconsistent: Yes NEUROLOGICAL Light Touch: within functional limits bilateral LE, Heel to rm: impaired BLE Tone: WFL BLE BALANCE: Sitting: Static: Poor+ Dynamic: NT Standing: Static: NT Dynamic: NT RANGE OF MOTION: within functional limits bilateral LE passively done except bilateral ankle unable to bring passively to neutral as it is limited by pain STRENGTH: 3-/5 (F-), bilateral LE , bilateral TA, EHL 2-/5 ENDURANCE: Poor+, Nasal canula SKIN INTEGRITY: defer full skin assessment to nursing, PROBLEM LIST: Decline in bed mobility, Decline in gait, Decline in transfers, Decreased strength, Decreased endurance, Decreased balance, Safety awareness deficits, Pain, Decreased Coordination, and Decreased Motor Planning ASSESSMENT: Patient is a 55 year old female seen secondary to the [...] patient and/or family will demonstrate the followin. Supine to sit: Minimal Assistance Sit to supine: Minimal Assistance Scooting to edge of bed: Minimal Assistance Sitting balance Good 3. Sit to stand: Moderate Assistance using RW Stand pivot transfer: Moderate Assistance 4. Moderate Assistance with ambulation, Feet: 10 using RW assistive device. 4 Minimal Assistance with wheelchair propulsion and management of brakes. 5. To be Independent with both lower leg home exercises program to maintain/increase strength and endurance and able to continue rehab on their own. Treatment Plan: Gait training, Therapeutic exercise, Transfer training, Balance training, Bed mobility training, Equipment needs assessment, Safety education, patient/caregiver education, Wheelchair mobility training, and Neuromuscular Re-Education PATIENT EDUCATION: Patient provided with preferred teaching of verbal information and demonstration on role of PT, plan of care, . Shows readiness to learn. Verbal instruction and Demonstration teaching provided. Individual is able to read and verbalizes understanding of teaching provided. Total Time Tx Codes in Minutes: 9 min Total Treatment Time in Minutes: 23 min Reji Ackerman PT, DPT License # [id number] [facility] Department of Rehabilitation Services [facility] ago Ackerman PT [facility] 2025-02-17 13:32:00 Associated Order(s): CONSULT ADULT OCCUPATIONAL THERAPY OT GENERAL EVALUATION Consult received via Mila, EMR reviewed and evaluation completed 02/17/25. Patient referred to occupational therapy for evaluation and treatment secondary to Seizure. Patient agreeable to participate in occupational therapy. Patient found semireclining in bed and Heels offloaded? No: not required as patient is alert and oriented, as well as exhibits sufficient LE strength and ability to move/reposition LEs/heels throughout the day, Spouse present. Discharge Recommendations: Therapy Needs and Potential:- Patient would benefit from continued skilled occupational therapy services to address: Decline in basic activities of daily living, Decreased strength, and Decreased endurance - Patient exhibits limited activity tolerance. - Patient able to follow commands: 1-step Yes, Multi-step No, Inconsistencies Yes Challenges to Home Transition:- Requires physical assistance for BADLS - Requires physical assistance for IADLS - Requires supervision or verbal cues for BADLS - Requires supervision or verbal cues for IADLS - Decreased safety awareness/judgement - Increased risk of falls - Environmental barriers Equipment Recommendations:Shower chair and Grab bars Patient may benefit from Post Acute Occupational Therapy. PLAN OF CARE: At least 3x/week Precautions: Weight bearing status: NA General: PPE Utilized: Gloves, Gown, Surgical mask, and cap, show covering, seizure, peripheral IV, Fall, Morbid obesity, O2 per NC Bracing: Cervical collar Subjective: Patient received semi relined in bed. Agreeable to occupational Therapy evaluation. Current Occupational Performance and/or Treatment: AM-PAC 6 Clicks (Raw Score 0=Dependent, 24=Independent; Low function Raw Score 0= Dependent, 32=Independent): Raw Score - Daily Activity (Low Function): 16 T-Scale Score - Daily Activity (Low Function): 27.65 Feeding: Moderate Assistance Grooming: Moderate Assistance to perform simple grooming task ( washing face). UB Dressing: Total Assistance to don hospital gown LB Dressing: Total Assistance to don non skid socks Toilet Transfer: NT d/t poor activity tolerance, poor trunk control, pain bilateral LE Functional Mobility: HOB elevated. Able to transition from sup to sit EOB moderate assistance,. Able to tolerate sitting EOB ~ 10 minutes with Min A. Required Max A to transition from sitting EOB to semi reclined in bed. Patient/caregiver educated on:Adaptive equipment , ADL training, C-collar management, Fall prevention, General strengthening, Positioning, Role of OT, and Safety awareness Patient left semireclining in bed with call whitney in reach. Spouse present, Telesitter in place, and Bed alarm engaged. Please, see full evaluation below for more detail. OT EVALUATION: 55 year old female Admit date: 02/17/2025 Date of onset: 02/17/2025 Admit Diagnosis: Seizure [R56.9] OT Diagnosis: Impaired BADL independence, Decreased endurance, Impaired self-care mobility, Decreased UE Function DENIS, and Pain PMH: Past Medical History: Diagnosis Date Anxiety Extreme Bipolar disorder Breast pain 09/18/2015 Cauda equina compression 11/21/2023 diagnosed 08/2023 Congestive heart failure 2021 COPD (chronic obstructive pulmonary disease) Diverticulitis Epilepsy Hypertension AK (myocardial infarction) 07/20/2007 Slipped disc Stomach cancer Substance abuse Marijuana daily-for anxiety PSH: Past Surgical History: Procedure Laterality Date ANTERIOR CERVICAL FUSION CHOLECYSTECTOMY HAND/FINGER SURGERY UNLISTED Bilateral 3 L hand, 3 R hand METATARSAL OSTEOTOMY Right 08/14/2015 Surgeon: Luis Jones Jr., DPM; Location: [facility] [place], [place] TONSILLECTOMY PAIN: Pain Location: right UE, left UE, right leg, and left leg Pain rating before treatment: 8, After treatment: does not rate Pain Management: Nursing Notified, Decreased movement aides in some pain reduction, and Repositioning Provided OCCUPATIONAL ROLES/HOME ENVIRONMENT: Home environment: Lives with spouse in an , 09/02 supervision/assistance is available. Bathroom access: Yes Bathroom setup: Shower Occupation(s): Disabled Function prior to admission: Household ambulation and Supervision Assistance with ADL Suspected ischemic or hemorraghic stroke patient: No Equipment prior to admission: 4 wheeled walker, Hand held shower PERFORMANCE SKILLS/FACTORS: UE Muscle Tone: bilateral WNL UE ROM: Bilateral Shoulder extension liited to ~ 90 degrees, PROM WFL soft end feel. Al else WFL UE Strength: DENIS UE 3/5 Hand dominance: right Dexterity/Coordination: bilateral Fine motor skills Impaired , bilateral Gross motor skills Impaired , and bilateral Finger to nose Impaired Endurance - Sitting: Poor+ Standing: NT Sitting Balance - Static: Poor+ Dynamic: Poor Standing: Balance - Static NT Dynamic: NT Dizziness: No Skin Integrity: No breakdown noted and defer full skin assessment to nursing Sensation: bilateral Intact to light touch Oral Motor: WFL Communication: Able to verbalize needs Yes Other: N/A Vision: WFL Yes Other: glasses or contacts Hearing: good; no issues reported COGNITION: Orientation: person, place, date/time, and situation Follows Commands: 1-step Yes Multi-step No Inconsistencies Yes Safety Awareness/Judgment: Poor, Lacks insight to deficits, and Impulsive PROBLEM LIST: Decreased independence with ADL, Impaired postural control, Decreased functional ROM, Decreased strength/endurance for functional activity, and Impaired safety awareness REHAB POTENTIAL/PROGNOSIS: fair PATIENT/FAMILY GOALS: to be able to take care of myself TREATMENT/INTERVENTION PLAN: Patient/Caregiver Education, Equipment recommendations, Daily living activities, Therapeutic exercises, and Neuromuscular Re-Education GOAL(S): By discharge, patient will increase independence in daily living skills as follows: 1 Patient will perform 3 in 1 BSC transfer with moderate assistance. 2 Patient will perform UB dressing with moderate assistance. 3 Patient will perform LB dressing with moderate assistance. 4 Patient will increase endurance for functional activity as evidenced by ability to sustain 30 minutes of active participation. 5 Patient/caregiver will verbalize/demonstrate understanding/proficiency in the following home programs: Adaptive equipment , C-collar management, Fall prevention, and General strengthening PATIENT-FAMILY TEACHING Patient provided with preferred teaching of verbal information on Adaptive equipment , ADL training, Deep breathing, Fall prevention, General strengthening, Role of OT, and Safety awareness. Barriers to learning include physical limitations and emotional. Verbal instruction teaching provided. Individual is able to read and needs reinforcement of teaching. OPAL Guerrero *This may not be patient's primary therapist. Please contact the Rehab Department at [phone] with questions. Total Timed Treatment Codes: 14 Min Total Treatment Time: 56 Min Patient Complexity Level High - An occupational therapy evaluation of high complexity was completed using the above tests and measures. The following information was obtained: An occupational profile and medical and therapy history, including review of medical and/or therapy records and extensive additional review of physical, cognitive, or psychosocial history related to current functional performance, Various standardized and non-standardized assessments were used to identify at least 5 or more performance deficits related to physical, cognitive, or psychosocial skills that result in activity limitations and/or participation restrictions, and Clinical decision-making is of high analytic complexity, which includes an analysis of the patient profile, analysis of data from comprehensive assessment(s), and consideration of multiple treatment options. Patient present with comorbidities that affect occupational performance. Significant modification of tasks or assistance (e.g., physical or verbal) with assessment(s) is necessary to enable patient to complete evaluation component. [facility] 2025-02-06 14:21:12 Associated Order(s): IP SCREENING REFERRAL TO NUTRITION SERVICES Brief Nutrition Note 02/06 - Received SR for error in BMI screening. Anthropometrics initially documented as 0. On regular diet. No nutrition concerns at this time. Mariza Pacheco RD, LD, CNSC Nutrition [facility] 2025-02-06 06:38:58 Neurology Consultation Note Consulted by Neurology for seizures History Of Present Illness [facility] Lfonyx, (Yue Romero) 55 y.o. female with PMH of HTN, epilepsy, CAD, HFrEF of 20-25% (01/10 echo), right SDH, neuropathy who presented on 02/05/2025 for seizures Previous notes mention not being compliant with her home Depakote. Recently here in 08/10/24 after she was in her wheel chair and fell down striking her head. She had CT revealing right sided prafalcine SDH with no progression. Patient able to recollect falling at home next to . She has been unable to afford her seizure medications. She denies any preceding events of fevers, chills, shortness of breath, and denies any general illness prior to seizure like events. She had general tonic clonic seizures at home and was life flighted to [facility]. In route she was given benzodiazapines and intubated in flight. In the ED patient was extubated and brought to the ICU Interval Events: 02/06 Extubated in ED and transferred to ICU with ongoing seizure like events. CT head and CTA H/N negative Past Medical History has no past medical history on file. Surgical History has no past surgical history on file. Family History No family history on file. Social History Allergies Keppra [levetiracetam] Home Medications No medications prior to admission. Review of Systems ROS all negative except those noted in HPI Physical Exam NIH STROKE SCALE SCORE ON ADMISSION 1a. 1a. LOC Level of Consciousness 0-Alert 1-Drowsy 2-Stupor 3-Coma 1b. LOC Questions (Month and Age) 0-both 1-One 2-Neither 1c. LOC Commands (Open/close eyes, It Technician/release non-paretic hand) 0-Both 1-One 2-Neither 2. Best Gaze 0-Normal 1-Partial 2-Forced gaze 3. Visual Ryan 0-No visual loss. 1-Partial hemianopia 2-Complete 3-Bilateral 4. Facial Palsy 0-None 1-Minor 2-Partial 3-Complete 5. Motor - R arm 0-No drift 1-Drift 2-Some antigravity 3-No antigravity 4-No movement 6. Motor - R leg 0-No drift 1-Drift 2-Some antigravity 3-No antigravity 4-No movement 1 7. Motor - L arm 0-No drift 1-Drift 2-Some antigravity 3-No antigravity 4-No movement 8. Motor - L leg 0-No drift 1-Drift 2-Some antigravity 3-No antigravity 4-No movement 9. Limb Ataxia 0-Absent 1-1limb 2-2 limbs 10. Sensory 0-Normal 1-Partial loss 2-Dense loss 11. Best Language 0-Normal 1-Mild/mod 2-Severe 3-Mute 12. Dysarthria 0-Normal 1-Mild/mod 2-Severe X-Untestable 13. Extinction and Inattention (formerly Neglect) 0-none 1-Partial 2-complete 1 TOTAL SCORE Further clinical exam documented under Impression and Plan by systems. ASSESSMENT AND PLAN Upsilontwtavo Hernández Lfonyx, 55 y.o. 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) S/p C2-7 ACDF Neuropathy Neuro Exam: GCS: E4 Eyes open spontaneously, V5 Speech oriented, M6 Follows commands MS: AAO x2, following commands, speech fluent, no dysarthria, naming intact, no neglect CN: L pupil 3 and brisk, R pupil 3 and brisk, EOMI, VFF, face symmetric Motor: RUE drift with LUE, RLE, LLE 5/5 strength throughout Coordination: deferred Sensory: intact to light touch throughout Gait: deferred initial CTH revealed no acute intracranial abnormality CTA H/N no acute large vessel occlusion cvEEG pending hook-up UDS ordered s/p AED 1500 mg of fosphenytoin VPA 1000 mg BID Gabapentin 100 mg TID PT/OT/MICROSOFT EXCHANGE ARCHITECT as indicated CARDIOVASCULAR Heart Failure with Reduced EF Hypertension CV Exam: RRR Temp: [36.4 ?C (97.6 ?F)-36.7 ?C (98 ?F)] 36.6 ?C (97.8 ?F) Heart Rate: [82-126] 82 Resp: [15-35] 19 BP: (77-273)/(49-134) 92/58 FiO2 (%): [40 %-60 %] 40 % VS Parameters: SBP<160 Hydralazine prn Will check home meds Trop 15 EKG sinus tachycardia Echo ordered No a-line No CVC indication PULMONARY Intubated for airway protection 02/05 nicotine dependence Pulm Exam: CTAB ABG Vent Mode: Volume targeted pressure limited/assist control FiO2 (%): 40 % S RR: 18 S VT: 400 mL PEEP/CPAP (cm H2O): 5 cm H2O NM SUP: 10 cm H20 MAP (cm H2O): 10 Extubated in ED 02/05 on NC, wean to room air for spO2>90% CXR bilateral pulmonary opacities GASTROINTESTINAL GI Exam: soft, non-distended, present bowl sounds Nutrition: Current Order: NPO Diet GI route: pending swallow/MICROSOFT EXCHANGE ARCHITECT evaluation GI ppx: None bowel regimen: docusate, miralax last BM [employer]CH[employer]IC KUB Lab Results Component Value Date ALT 10 02/06/2025 AST 29 02/06/2025 Alkaline Phosphatase 89 02/06/2025 Bilirubin Total 0.19 (L) 02/06/2025 RENAL Intake/Output Summary (Last 24 hours) at 02/06/2025 0639 Last data filed at 02/05/2025 2300 Gross per 24 hour Intake 12.54 ml Output -- Net 12.54 ml Urine Output: 0mL in 24hrs mL/kg/hr (last 24hrs) Results from last 7 days Lab Units 02/06/25 0028 02/05/25 1851 SODIUM mEq/L 140 140 POTASSIUM mEq/L 5.0* 4.0 CHLORIDE mEq/L 110* 109* CO2 mEq/L 21.6 24.3 BUN mg/dL 17 15 CREATININE mg/dL 0.82 0.75 MAGNESIUM mg/dL 1.92 2.18 PHOSPHORUS mg/dL 4.9 4.5 CALCIUM mg/dL 8.2* 9.0 ICU electrolyte replacement protocol no lemons INFECTIOUS DISEASE Temp (24hrs), Av.6 ?C (97.8 ?F), Min:36.4 ?C (97.6 ?F), Max:36.7 ?C (98 ?F) Results from last 7 days Lab Units 02/06/25 0028 02/05/25 1851 WBC 10*3/uL 10.07 10.29 Afebrile UA ordered Monitor trend fever curve and WBC No abx at this time HEMATOLOGIC Results from last 7 days Lab Units 02/06/258 02/05/25 1851 HEMOGLOBIN g/dL 11.4 13.2 PLATELETS 10*3/uL 436* 491* DVT ppx: SCDs; start sc heparin ENDOCRINE Results from last 7 days Lab Units 02/06/258 02/05/25 1851 GLUCOSE mg/dL 135* 110* TSH uIU/mL 2.266 -- BG goal 80-180 ISS MUSCULOSKELETAL AND INTEGUMENTARY Skin Exam: warm, dry, intact Code Status: Full Code Disposition: ICU [facility] Neurocritical Care ICU [place] Team ICU Ph #[id number] The patient has an illness or injury that has acutely impaired one or more vital organ systems. There is a high probability of imminent or life threatening deterioration in the patient's condition during this evaluation. This is the total time spent evaluating the patient, speaking with medical staff and family, interpreting studies, discussing the case with consultants and admitting teams, retrieving data and reviewing charts, documenting the visit, and performing bundled procedures required during patient management. TIME (IN MINUTES) SPENT 30 Day MD Day NOHELIA - () 30 Day Total TIME (IN MINUTES) SPENT 45 Night MD Night NOHELIA - () 45 Night Total 75 TOTAL OF TIME (IN MINUTES) SPENT The patient was seen and examined by me at a separate time from the NOHELIA/Fellow/resident. I also reviewed the documentation and agree with the documented findings and plan of care. Additionally, I was directly involved in the management of the patient and provided the substantive portion of this visit, including examining the patient, obtaining history, and medical decision-making. Neurocritical Care Physician [facility] 2025-02-05 21:28:30 Neurology Consultation Note Consulted by Neurology for seizures History Of Present Illness [facility], (Yue Romero) 55 y.o. female with PMH of HTN, epilepsy, CAD, HFrEF of 20-25% (01/10 echo), right SDH, neuropathy who presented on 02/05/2025 for seizures Previous notes mention not being compliant with her home Depakote. Recently here in 08/10/24 after she was in her wheel chair and fell down striking her head. She had CT revealing right sided prafalcine SDH with no progression. Patient able to recollect falling at home next to . She has been unable to afford her seizure medications. She denies any preceding events of fevers, chills, shortness of breath, and denies any general illness prior to seizure like events. She had general tonic clonic seizures at home and was life flighted to [facility]. In route she was given benzodiazapines and intubated in flight. In the ED patient was extubated and brought to the ICU Interval Events: 02/06 Extubated in ED and transferred to ICU with ongoing seizure like events. CT head and CTA H/N negative Past Medical History has no past medical history on file. Surgical History has no past surgical history on file. Family History No family history on file. Social History Allergies Keppra [levetiracetam] Home Medications (Not in a hospital admission) Review of Systems ROS all negative except those noted in HPI Physical Exam NIH STROKE SCALE SCORE ON ADMISSION 1a. 1a. LOC Level of Consciousness 0-Alert 1-Drowsy 2-Stupor 3-Coma 1b. LOC Questions (Month and Age) 0-both 1-One 2-Neither 1c. LOC Commands (Open/close eyes, It Technician/release non-paretic hand) 0-Both 1-One 2-Neither 2. Best Gaze 0-Normal 1-Partial 2-Forced gaze 3. Visual Ryan 0-No visual loss. 1-Partial hemianopia 2-Complete 3-Bilateral 4. Facial Palsy 0-None 1-Minor 2-Partial 3-Complete 5. Motor - R arm 0-No drift 1-Drift 2-Some antigravity 3-No antigravity 4-No movement 6. Motor - R leg 0-No drift 1-Drift 2-Some antigravity 3-No antigravity 4-No movement 1 7. Motor - L arm 0-No drift 1-Drift 2-Some antigravity 3-No antigravity 4-No movement 8. Motor - L leg 0-No drift 1-Drift 2-Some antigravity 3-No antigravity 4-No movement 9. Limb Ataxia 0-Absent 1-1limb 2-2 limbs 10. Sensory 0-Normal 1-Partial loss 2-Dense loss 11. Best Language 0-Normal 1-Mild/mod 2-Severe 3-Mute 12. Dysarthria 0-Normal 1-Mild/mod 2-Severe X-Untestable 13. Extinction and Inattention (formerly Neglect) 0-none 1-Partial 2-complete 1 TOTAL SCORE Further clinical exam documented under Impression and Plan by systems. ASSESSMENT AND PLAN Gabriellatwtavo De La Pazx, 55 y.o. 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) S/p C2-7 ACDF Neuropathy Neuro Exam: GCS: E4 Eyes open spontaneously, V5 Speech oriented, M6 Follows commands MS: AAO x2, following commands, speech fluent, no dysarthria, naming intact, no neglect CN: L pupil 3 and brisk, R pupil 3 and brisk, EOMI, VFF, face symmetric Motor: RUE drift with LUE, RLE, LLE 5/5 strength throughout Coordination: deferred Sensory: intact to light touch throughout Gait: deferred initial CTH revealed no acute intracranial abnormality CTA H/N no acute large vessel occlusion MRI brain w/wo pending cvEEG pending hook-up UDS pending in-lab infectious and metabolic work-up pending s/p AED 1500 mg of fosphenytoin VPA 1000 mg BID Gabapentin 100 mg TID PT/OT/MICROSOFT EXCHANGE ARCHITECT as indicated CARDIOVASCULAR Heart Failure with Reduced EF Hypertension CV Exam: RRR Temp: [36.7 ?C (98 ?F)] 36.7 ?C (98 ?F) Heart Rate: [89-126] 89 Resp: [16-35] 16 BP: (77-273)/(49-134) 116/58 FiO2 (%): [50 %-60 %] 50 % VS Parameters: SBP<160 Hydralazine prn Trop 15 EKG sinus tachycardia Echo pending No a-line No CVC indication PULMONARY Intubated for airway protection 02/05 nicotine dependence Pulm Exam: CTAB ABG Vent Mode: Volume targeted pressure limited/assist control FiO2 (%): 50 % S RR: 18 S VT: 400 mL PEEP/CPAP (cm H2O): 7 cm H2O MAP (cm H2O): 10 Extubated in ED 02/05 on NC, wean to room air for spO2>90% CXR bilateral pulmonary opacities GASTROINTESTINAL GI Exam: soft, non-distended, present bowl sounds Nutrition: Current Order: NPO Diet GI route: pending swallow/MICROSOFT EXCHANGE ARCHITECT evaluation GI ppx: None bowel regimen: docusate, miralax last BM [employer] MECH[employer]IC Lab Results Component Value Date ALT 13 02/05/2025 AST 20 02/05/2025 Alkaline Phosphatase 105 02/05/2025 Bilirubin Total 0.30 02/05/2025 RENAL Intake/Output Summary (Last 24 hours) at 02/05/2025 2210 Last data filed at 02/05/2025 1929 Gross per 24 hour Intake 2.34 ml Output -- Net 2.34 ml Urine Output: 0mL in 24hrs mL/kg/hr (last 24hrs) Results from last 7 days Lab Units 02/05/25 1851 SODIUM mEq/L 140 POTASSIUM mEq/L 4.0 CHLORIDE mEq/L 109* CO2 mEq/L 24.3 BUN mg/dL 15 CREATININE mg/dL 0.75 MAGNESIUM mg/dL 2.18 PHOSPHORUS mg/dL 4.5 CALCIUM mg/dL 9.0 ICU electrolyte replacement protocol no lemons INFECTIOUS DISEASE Temp (24hrs), Av.7 ?C (98 ?F), Min:36.7 ?C (98 ?F), Max:36.7 ?C (98 ?F) Results from last 7 days Lab Units 02/05/25 1851 WBC 10*3/uL 10.29 Afebrile UA pending Monitor trend fever curve and WBC No abx at this time HEMATOLOGIC Thrombocytopenia Results from last 7 days Lab Units 02/05/25 1851 HEMOGLOBIN g/dL 13.2 PLATELETS 10*3/uL 491* DVT ppx: SCDs; start sc heparin ENDOCRINE Results from last 7 days Lab Units 02/05/25 1851 GLUCOSE mg/dL 110* BG goal 80-180 ISS MUSCULOSKELETAL AND INTEGUMENTARY Skin Exam: warm, dry, intact Code Status: No Order Disposition: ICU [facility] Neurocritical Care ICU [place] Team ICU Ph #[phone] The patient has an illness or injury that has acutely impaired one or more vital organ systems. There is a high probability of imminent or life threatening deterioration in the patient's condition during this evaluation. This is the total time spent evaluating the patient, speaking with medical staff and family, interpreting studies, discussing the case with consultants and admitting teams, retrieving data and reviewing charts, documenting the visit, and performing bundled procedures required during patient management. TIME (IN MINUTES) SPENT Day MD Day NOHELIA - () Day Total TIME (IN MINUTES) SPENT 45 Night MD Night NOHELIA - () Night Total TOTAL OF TIME (IN MINUTES) SPENT The patient was seen and examined by me at a separate time from the NOHELIA/Fellow/resident. I also reviewed the documentation and agree with the documented findings and plan of care. Additionally, I was directly involved in the management of the patient and provided the substantive portion of this visit, including examining the patient, obtaining history, and medical decision-making. Neurology Physician [facility] Miky 2024-08-10 12:16:49 Associated Order(s): IP CONSULT TO SOCIAL WORK Reason For Consult SW consulted for transport home. Pt transferred from [place]. SW spoke with pt at bedside, pt states she is going to her friend's Jewell ([phone]) home at [address] [place] [address]. Pt is wheelchair bound and does not have wheelchair here. VERITO arranged [facility]. LE MANAGER Block Handler [facility] Miky 2024-01-10 12:39:30 Associated Order(s): CONSULT CARDIOLOGY [facility] Cardiology Consult PCP: PATIENT DOES NOT HAVE A PCP Date of Service: 01/10/2024 CHIEF COMPLAINT/reason for consult: Chest pain HISTORY OF PRESENT ILLNESS This is a 53 years old female with past medical history of smoking, COPD, hypertension, obesity, nonobstructive coronary artery disease, systolic and diastolic heart failure, left ventricular thrombosis and pulm hypertension. She presented to [facility] emergency room with chest pain. She has [...] (chronic obstructive pulmonary disease) Diverticulitis Epilepsy Hypertension AK (myocardial infarction) 07/20/2007 Slipped disc Stomach cancer Substance abuse Marijuana daily-for anxiety Past Surgical History: Procedure Laterality Date ANTERIOR CERVICAL FUSION CHOLECYSTECTOMY HAND/FINGER SURGERY UNLISTED Bilateral 3 L hand, 3 R hand METATARSAL OSTEOTOMY Right 08/14/2015 Surgeon: Luis Jones Jr., ESTHER; Location: [facility] OR [facility] TONSILLECTOMY Family History Problem Relation Age of [...] pulmonary disease) Obesity Coronary artery disease involving inaja coronary artery of inaja heart without angina pectoris Snores Cigarette smoker [...] be of further assistance. Kylee Diego MD, [facility], [place] Estate Attorney Division of Cardiovascular Medicine [facility] [employer] 2023-12-15 08:28:19 Associated Order(s): CONSULT CARDIOLOGY [facility] Cardiology Consult PCP: PATIENT DOES NOT HAVE A PCP Date of Service: 12/15/2023 CHIEF COMPLAINT/reason for consult: Heart failure HISTORY OF PRESENT ILLNESS This is a 53 years old female with past medical history of smoking, COPD, hypertension, obesity, nonobstructive coronary artery disease, systolic and diastolic heart failure, left ventricular thrombosis and pulm hypertension. She presented to [facility] emergency room with dyspnea, chest pain and [...] (chronic obstructive pulmonary disease) Diverticulitis Epilepsy Hypertension AK (myocardial infarction) 07/20/2007 Slipped disc Stomach cancer Substance abuse Marijuana daily-for anxiety Past Surgical History: Procedure Laterality Date ANTERIOR CERVICAL FUSION CHOLECYSTECTOMY HAND/FINGER SURGERY UNLISTED Bilateral 3 L hand, 3 R hand METATARSAL OSTEOTOMY Right 08/14/2015 Surgeon: Luis Jones Jr., ESTHER; Location: [facility] OR [facility] TONSILLECTOMY Family History Problem Relation Age of [...] pain, unspecified type Coronary artery disease involving inaja coronary artery of inaja heart without angina pectoris Snores Cigarette smoker [...] further assistance. Kylee Diego MD, FAC, [employer] Attorney Division of Cardiovascular Medicine [facility] 2023-11-27 14:57:00 Associated Order(s): CONSULT ADULT PHYSICAL THERAPY 11/27/2023 Physical therapy note: Duplicate consult. Sami TeranPT, DPT,CMSR Sami Teran PT [facility] 2023-11-25 10:16:00 Associated Order(s): CONSULT ADULT PHYSICAL [...] (chronic obstructive pulmonary disease) Diverticulitis Epilepsy Hypertension AK (myocardial infarction) 07/20/2007 Slipped disc Stomach cancer Substance abuse Marijuana daily-for anxiety PSH: Past Surgical History: Procedure Laterality Date ANTERIOR CERVICAL FUSION CHOLECYSTECTOMY HAND/FINGER SURGERY UNLISTED Bilateral 3 L hand, 3 R hand METATARSAL OSTEOTOMY Right 08/14/2015 Surgeon: Luis Jones Jr., DPM; Location: [facility] [place] [place] TONSILLECTOMY Prior Living Situation: lives with her [...] -Pain Management: Nursing Notified COMMUNICATION Primary Language: [place] Able to Verbalize needs: Yes Vision:good; no [...] Time in Minutes: 30 min Sami Lynn. GAURI Teran, DPT,CMSR [facility] - Health History and Physical Notes Date/Time Note Provider Source 2025-02-17 03:58:34 Images from the original note were not included. GENERAL NEUROLOGY HP NOTE DATE OF SERVICE: 02/17/2025 05:33 CC: OSH seizures HISTORY OF PRESENT ILLNESS Heather Turner is a 54 y.o. female with PMH of HTN, Epilepsy, CAD, HFrEF 15-20% EF on Depakote 1000mg BID with breakthrough seizure in the setting of alcohol abuse. Patient reports taking her seizure medications with alcoholic drinks recently Denies fever, recent infection Cannot specify the exact semiology of her seizures but more likely to be generalized tonic-clonic, 5-6 episodes yesterday Reports having a fall yesterday as well Patient seen recently at [facility] The patient is a 55-year-old female who presents for seizure-like activity. She was recently released from an outside facility for seizures. She is on Depakote and Vimpat. She admits to being compliant with her medications. She denies any sleep deprivation. No recent illnesses. She was brought from the parking lot for further management. She is now a total of 4 mg of Versed. Workup was otherwise essentially negative. The patient requested to go to [facility] The patient was transferred in guarded condition. Prior seen by Neurology in November 2023 Patient with a history of seizure disorder; initially started on Depakote 500 mg OD, later up-titrate to 1000 BID, later transitioned to 1250 mg BID this AM ( home dose 1000 mg BID). Neuro exam unremarkable for any post-ictal confusion or weakness (chronic residual b/l LE weakness 2/2 previous lumbar degeneration). Previous MRI brain 04/10 neg for any intracranial lesions.Semiology not very consistent with actual seizure disorder, more concerning for possible mixed disorder, given patient has been on medications, will continue with the same and get further work up. Additionally, cannot also r/o metabolic causes of provoked seizure, given LA 6.1; BG -293, although no electrolyte derangements noted. Off note patient has h/o multiple psych conditions, been previously treated with Zonisamide 100 mg bid, and Keppra (stopped d/t mood disorders), and later transitioned to Depakote. Seen by [facility] Neurology in July Heather Turner is a 54 y.o. female [...] fosphenytoin, ativan, and phenobarbital at outside hospitals. 11/28/23 NSTEMI, segmental RLL PE and RLE DVT. Heparin gtt was started. Patient found to be in mixed COPD exacerbation and acute on chronic HFrEF exacerbation. Patient was started on steroids with IV diuresis. TTE revealed biventricular dysfunction EF of 15-20% with a LV thrombus present. Patient was transferred to CCU for inotropic support for biventricular failure and cardiogenic shock. Patient started on milrinone and then increased without improvement. RHC revealed elevated R sided pressures and LHC revealed nonobstructive CAD with elevated R sided pressure. Patient eventually improved on milrinone and IV diuresis and was TTF. GDMT was titrated. Patient experienced seizures and neurology was consulted. Patient started on Vipmat with improvement PAST MEDICAL HISTORY Past Medical History: Diagnosis Date Anxiety Extreme Bipolar disorder Breast pain 09/18/2015 Cauda equina compression 11/21/2023 diagnosed 08/2023 Congestive heart failure 2021 COPD (chronic obstructive pulmonary disease) Diverticulitis Epilepsy Hypertension AK (myocardial infarction) 07/20/2007 Slipped disc Stomach cancer Substance abuse Marijuana daily-for anxiety PAST SURGICAL HISTORY Past Surgical History: Procedure Laterality Date ANTERIOR CERVICAL FUSION CHOLECYSTECTOMY HAND/FINGER SURGERY UNLISTED Bilateral 3 L hand, 3 R hand METATARSAL OSTEOTOMY Right 08/14/2015 Surgeon: Luis Jones Jr., ESTHER; Location: [facility] [place] [place] TONSILLECTOMY FAMILY HISTORY Family History Problem Relation Age [...] daily Sexual activity: Yes Partners: Male Social Drivers of Health Financial Resource Strain: [...] Unstable Housing in the Last Year: Yes HOME MEDICATIONS Medications Prior to Admission Medication Sig Dispense Refill Last Dose/Taking divalproex ER 500 mg 24 hr tablet Take 2 tablets by mouth every 12 (twelve) hours. 120 tablet 2 02/16/2025 furosemide 40 mg tablet Take 1 tablet by mouth every morning and evening. Unknown ipratropium-albuteroL 0.5 mg-3 mg(2.5 mg base)/3 mL nebulizer solution Inhale 3 mL every 6 (six) hours as needed for Wheezing or Shortness of Breath. 90 mL 0 02/16/2025 DULoxetine 30 mg capsule Take 1 capsule by mouth in the morning. 30 capsule 2 02/16/2025 atorvastatin 40 mg tablet Take 0.5 tablets by mouth at bedtime. (Patient not taking: Reported on 02/17/2025) Not Taking lisinopriL 2.5 mg tablet Take 1 tablet by mouth in the morning. (Patient not taking: Reported on 02/17/2025) 30 tablet 0 Not Taking metoprolol succinate XL 25 mg 24 hr tablet Take 0.5 tablets by mouth in the morning. (Patient not taking: Reported on 02/17/2025) 30 tablet 1 Not Taking digoxin 125 mcg tablet Take 1 tablet by mouth in the morning. (Patient not taking: Reported on 02/17/2025) 30 tablet 2 Not Taking gabapentin 100 mg capsule Take 1 capsule by mouth in the morning and 1 capsule at noon and 1 capsule in the evening. (Patient not taking: Reported on 02/17/2025) 90 capsule 2 Not Taking mirtazapine 15 mg tablet Take 1 tablet by mouth at bedtime. (Patient not taking: Reported on 02/17/2025) Not Taking Lacosamide (VIMPAT) 100 mg tablet Take 1 tablet by mouth in the morning and 1 tablet in the evening. (Patient not taking: Reported on 02/17/2025) 60 tablet 0 Not Taking cyclobenzaprine 5 mg tablet Take 1 tablet by mouth in the morning and 1 tablet at noon and 1 tablet in the evening. (Patient not taking: Reported on 02/17/2025) 21 tablet 0 Not Taking aspirin 81 mg chewable tablet Take 1 tablet by mouth in the morning. (Patient not taking: Reported on 02/17/2025) 30 tablet 5 Not Taking loratadine (CLARITIN LIQUI-GEL) 10 mg capsule Take by mouth daily. (Patient not taking: Reported on 02/17/2025) Not Taking MULTIVITAMIN ORAL Take 1 Tab by mouth daily. omega-3 fatty acids-vitamin E (FISH OIL) 1,000 mg capsule Take 1 g by mouth daily. HOSPITAL MEDICATIONS Reviewed ALLERGY Allergies Allergen Reactions Green Tea Other - See comments Seizures Keppra [Levetiracetam] Other - See comments Makes seizures worse REVIEW OF SYSTEMS General: (-) fever, (-) chills, (-) weight change, (-) dizziness, (-) fatigue, (-) change in appetite Skin: (-) rash, (-) lesion HEENT: (-) headache, (-) change in hearing, (-) change in vision, (-) nasal discharge, (-) sore throat Neck: (-) pain, (-) difficulty swallowing, (-) mass Heme: (-) bleeding disorder Resp: (-) cough, (-) shortness of breath, (-) dyspnea on exertion Cardio: (-) chest pain, (-) palpitations, (-) syncope GI: (-) abdominal pain, (-) nausea, (-) vomiting, (-) diarrhea, (-) constipation, (-) melena, (-) hematochezia, (-) hematemesis : (-) dysuria, (-) hematuria, (-) increased frequency, (-) difficulty urinating, (-) difficulty initiating Endo: (-) heat intolerance, (-) diabetes, (-) cold intolerance, (-) polyuria, (-) polydipsia, (-) renal insufficiency, (-) thyroid disease Neuro: See HPI Back: (-) pain, (-)spasms JASMINA: (-) muscle pain, (-) joint pain, (-) claudication Psych: (-) anxiety, (-) depression, (-) psychiatric disorder PHYSICAL EXAM Vitals: 02/17/25 0508 BP: 119/74 Pulse: 91 Temp: 36.8 ?C (98.3 ?F) SpO2: 95% Weight: 84.7 kg (186 lb 11.7 oz) Height: 1.575 m (5' 2.01") Body mass index is 34.14 kg/m?. General: Alert and oriented x 4 (time, person, place and situation); although appears intoxicated. Mental Status: Consciousness, attention, concentration: normal, Stays focused and on task while being questioned. Speech/ Language: intact to comprehension, repetition and naming, mild dysarthric Cranial Nerves: I. Not tested. II. PERRL. Blinks to threat BL III. IV., . Extraocular movements intact without nystagmus. V. Normal sensation in V1-3 distributions. VII. No facial droop noted. VIII. Hearing intact. IX., X. Palatal elevation response present symmetrically. XI. Normal Strength of sternocleidomastoid and trapezius muscles bilaterally. XII. Tongue in midline. Motor: Tone: normal Bulk: decreased LE Strength: RUE prox and distal 4/5 LUE prox and distal 4/5 LLE prox and distal 2/5 RLE prox and distal 2/5 DTR's: Right Left Bicep 2+ 2+ Triceps 2+ 2+ Brachioradialis 2+ 2+ Patella 2+ 2+ Achilles 0+ 0+ Pathologic reflexes and signs: Farrell: absent Cerebellar: Nystagmus: neg, FTN: action tremors, Tremors: neg at rest, Dysdiadochokinesia: neg Sensory: LT: decreased in a sticking and glove distribution BUE/BLE Gait: deferred LABS Reviewed RADIOLOGY No final results containing an impression from the past 48 hours were found. ASSESSMENT AND RECOMMENDATIONS Heather Turner is a 54 y.o. female with PMH of HTN, Epilepsy, CAD, HFrEF 15-20% EF on Depakote 1000mg BID not compliant that presents as transfer from OSH for breakthrough seizures in the context of possible alcohol abuse, received NS 1 L bolus plus to 50 mL/h, fosphenytoin load 20 mL/kg, lorazepam 1 mg, valproic acid 500 mg at outside hospital. Patient previously seen by Neuro [facility] in November 2024 and had depakote uptitrated, however there was concern for mixed disorder. Patient seen by OSH Neurologist in July and continued on Generic Divalproex 1000mg BID. There are notes mentioning vimpat as well, but patient medication bag does not include it. Breakthrough seizures in the setting of alcohol abuse Prior substance abuse Hx of Mixed disorder ? Recent fall History of neuropathy History of C-spine surgery -Check ethanol level, UDS - check CK, patient status post fluids at outside hospital -Given patient's reported EF of 15/20% and patient's status post of at least 1.5 L NS at outside hospital, monitor for any heart failure exacerbation, hold off fluids for now - Check Depakote level -Given recent fall and C-spine surgery, check CT cervical spine -MRI brain with without and continuous EEG -Check ammonia and started on lactulose 30 mg twice daily -Check CMP, CBC, magnesium, TSH, FT4, A1c, UA, CXR - Check B9, B12, B1 and start empiric as B1 supplementation and folic acid - Check phosphorus and monitor for any refeeding syndrome as patient appears malnourished - Monitor for alcohol withdrawal, start Serax taper -Check PT/INR, platelets, Na, bilirubin and monitor for any decompensation, prior Abd US w/ Hepatomegaly and fatty infiltration of the liver. Slight nodularity of the hepatic capsule - PT/OT, patient will require significant strength training in context of bilateral lower extremity severe reduced bulk, not proportional to upper extremities and in context of described polyneuropathy might require further workup - Seizure precautions - Once collateral information is obtained and depending on EEG changes might add prior reported Vimpat however outside hospital notes mentioned only Depakote 1 g twice daily and patient's medication bag obtained included only levothyroxine 25, gabapentin 300 3 times daily, prazosin 1, valproic acid 1 g twice daily, carvedilol 3.125 twice daily, buspirone 5, duloxetine 20, Robaxin 500 VS. prior reported [facility] medications with Lasix (hold for now till BMP resulted) Case was discussed with Dr. Muñoz, neurology faculty. Nagi Porter MD PGY-2 Resident Cosigned by Ethan Muñoz MD at 02/17/2025 10:29 PM CDT Associated attestation - Ethan Muñoz MD - 02/17/2025 10:29 PM CDT I personally examined the patient on the date of service and agree with the residents note. I actively participated in the decision-making process including any findings and plan of care as documented by the resident. Please see the resident's note for additional details. Ethan Muñoz MD Estate Attorney, Department of Neurology [facility] 2025-02-05 21:30:58 Neurology H&P Team: Neurology Inpatient Subjective Chief Complaint Patient presents with Seizures HPI Patient Heather Turner ( 1970, ) is a 54-year-old female with PMH of HTN, Epilepsy (non-compliant on Depakote), CAD, HFrEF 15-20% EF reported, bipolar disorder?, prior SDH who presents to the ED for evaluation of seizures, with concern for status epilepticus. Patient was not feeling her normal self today having "headache" and was being taken to ED when in car patient had x2 back to back seizures, lasting 30-45 seconds with urinary incontinence. EMS was called when patient had multiple sbhe-qf-htpn seizures and then [facility] was calls. Per reports from the ED, [facility] said patient had 16 sebd-mo-ulcg seizures that were tonic-clonic. Patient was given Versed 7.5mg and Ativan 2mg?. Patient was then intubated. In the ED patient was withdrawing from all extremities and agitated with the ventilator. Patient was placed on fentanyl and versed for breathing precautions with the ventilator. Per patient has not been taking her seizure medications due to the seizures being 'on and off'. Patient has not had any confusion over the past week, no fevers, no particular weakness. Review of Systems No past medical history on file. No past surgical history on file. No family history on file. Social History Socioeconomic History Marital status: Spouse name: Not on file Number of [...] Social Drivers of Health Financial Resource Strain: Not on file Food Insecurity: Not on file Transportation Needs: Not on file Physical Activity: Not on file Stress: Not on file Social Connections: Not on file Intimate Partner Violence: Not on file Housing Stability: Not on file (Not in a hospital admission) Objective: Vitals: 02/05/25191102/05/25191402/05/25191902/05/251924 BP: (!) 77/49 (!) 82/52 (!) 171/80 Pulse: 100 98 (!) 104 Resp: 19 (!) 31 (!) 35 Temp: SpO2: 95% 97% 98% 100% GENERAL: Intubated, nonresposive HEENT: - Normocephalic and atraumatic, dry mm LUNGS - Intubated, symmetric chest rise CV - RRR on monitor ABDOMEN - Soft, nontender, nondistended NEURO: Mental Status:comatose, Language: mute, intubated, not follows commands Cranial Nerves: Pupils 3mm and equal/responsive, Midline gaze, +oculocephalic, +corneal reflex, +cough/gag reflex, no facial asymmetry Motor: RUE: AG withdrawal LUE: AG withdrawal RLE: AG withdrawal LLE: AG withdrawa; Tone: is normal and bulk is normal Sensation: in all 4 extremities to noxious stim Reflexes: RUE: Biceps 2+/4, Triceps 2+/4, Brachioradialis 2+/4 LUE: Biceps 2+/4, Triceps 2+/4, Brachioradialis 2+/4 RLE: Patellar 2+/4, Cross adductor +, Ankle 2+/4 LLE: Patellar 2+/4, Cross adductor +, Ankle 2+/4 Farrell: absent Babinski: absent Coordination: SHWETA Gait: SHWETA Imaging: CT head: PENDING CTA head/Neck: PENDING MRI Brain Seizure Protocol: EE03/2023 Routine EEG CLINICAL CORRELATION: This is a normal awake and asleep EEG. No areas of focal dysfunction or epileptiform discharges were seen. Assessment & Plan Status epilepticus ([facility]) ([facility]) Patient Heather Turner ( 1970, ) is a 54-year-old female with PMH of HTN, Epilepsy (non-compliant on Depakote), CAD, HFrEF 15-20% EF reported, bipolar disorder?, prior SDH who presents to the ED for evaluation of seizures, with concern for status epilepticus. 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 - Correct electrolyte abnormalities, goal K >4, Mag >2 - Avoid medications that decrease seizure threshold. - Seizure precautions. CHF: 15-20%? - TTE. - Consider cards. RESP: Vent on Admission Day - Vent management per ICU - Wean when able Prophylaxis DVT: SCDs, SubQ heparin GI: N/A Bowel regimen: senna Diet: NPO Code Status: Full Code Dispo: pending This patient was discussed with Dr. Rothman. Please reach out to the primary team with any questions or concerns. Judy Resendiz MD Adult Neurology PGY 3 [facility] Cosigned by Last Siegel MD at 02/06/2025 10:25 PM CDT Associated attestation - Last Siegel MD - 02/06/2025 10:25 PM CDT I have seen and evaluated the patient on rounds today. Furthermore, I have reviewed the above note and agree with the history, exam, assessment and plan. See below for additions and/or exceptions and my findings. I have personally viewed the patient s radiographic studies, laboratory tests, and medications. Today I spent greater than 78 minutes of total cumulative time with time spent on sfvd-qw-bfan examining the patient at the bedside in discussion regarding plan of care and addressing questions and concerns, reviewing the EMR and paper chart, reviewing diagnostic studies, laboratory values, and recommendations. Last Siegel MD Estate Attorney [facility] 2024-08-10 06:52:16 NEUROSURGERY History & Physical Date: [...] on blood thinners. Pt was transferred to [facility] ED for a higher level of [...] on blood thinners. Pt was transferred to [facility] ED for a higher level of [...] repeat CT brain without contrast. Please call [phone] to schedule an appointment. Importance of follow up and red flags symptoms discussed with patient. She was counseled on not take ASA or blood thinners. - Please call [phone] with NSGY questions or concerns Prakash Eckert MD [facility] Neurosurgery Cosigned by Gus Jamison MD at 08/10/2024 8:06 AM MOBILE MANAGER LE MANAGER LE MANAGER Associated attestation - Gus Jamison MD - 08/10/2024 8:06 AM MOBILE MANAGER I have reviewed the case and imaging. The CT shows minimal, unchanged hemorrhage that does not require intervention. We will defer further management to the ER and neurology. Please call [phone] with questions. Neurosurgery Physician Jeffry Bolaños 2024-01-09 22:04:15 [facility] Hospitalist Admission H&P Date of Service: 01/09/2024 CHIEF COMPLAINT: Patient with complaints of chest pain and a history of cardiomyopathy with left ventricular thrombus HISTORY OF PRESENT ILLNESS Heather Turner is a 53 year old female who presents with chest discomfort. Patient had extensive cardiac workup done recently at [facility]. At that time, patient was [...] a while. Patient recently started coming to [facility] as she had been going to [facility]. At this time, she will be admitted [...] (chronic obstructive pulmonary disease) Diverticulitis Epilepsy Hypertension AK (myocardial infarction) 07/20/2007 Slipped disc Stomach cancer Substance abuse Marijuana daily-for anxiety Pseudoseizures PAST SURGICAL HISTORY Past Surgical History: Procedure Laterality Date ANTERIOR CERVICAL FUSION CHOLECYSTECTOMY HAND/FINGER SURGERY UNLISTED Bilateral 3 L hand, 3 R hand METATARSAL OSTEOTOMY Right 08/14/2015 Surgeon: Luis Jones Jr., DP; Location: [facility] OR [...] edema versus atypical pneumonia. RL: [id number] AFC: [id number] End of report CHEST 1 VW Narrative [...] consolidation or pleural effusion. No pneumothorax. RL: 2826 End of Report SSMENT: 1. Chest pain [...] given high risk of morbidity and mortality. [place] BLENDING TANK TENDER was verified during stay Darrick Fry MD T [facility] 2023-12-14 22:42:40 [facility] ADMIT H&P Date of Service: 12/14/2023 CHIEF COMPLAINT: shortness of breath Subjective History of Present Illness 53 year old female with a PMH significant for HFrEF (15-20% on 11/22/23) w/ LV thrombus, RLE DVT, RLL segmental PE, HTN, smoker, COPD, chronic low back pain, depression presenting from [facility] ED due to chest heaviness and [...] (chronic obstructive pulmonary disease) Diverticulitis Epilepsy Hypertension AK (myocardial infarction) 07/20/2007 Slipped disc Stomach cancer Substance abuse Marijuana daily-for anxiety Past Surgical History: Procedure Laterality Date ANTERIOR CERVICAL FUSION CHOLECYSTECTOMY HAND/FINGER SURGERY UNLISTED Bilateral 3 L hand, 3 R hand METATARSAL OSTEOTOMY Right 08/14/2015 Surgeon: Luis Jones Jr.ESTHER; Location: [facility] OR Location TONSILLECTOMY Family History Problem Relation Age of [...] On Eliquis Code Status: Full Code T [facility] EMERGENCY PHYSICIAN STAFF [facility] 2023-11-22 13:30:57 CCU Team Admit H&P Date [...] lumbar spinal stenosis, and depression presenting from [facility] ED due to SOB. Patient with [...] (chronic obstructive pulmonary disease) Diverticulitis Epilepsy Hypertension AK (myocardial infarction) 07/20/2007 Slipped disc Stomach cancer Substance abuse Marijuana daily-for anxiety Prior to Admission medications Medication Sig Start Date End Date Taking? Authorizing Provider metoprolol succinate XL 25 mg 24 hr tablet Take 1 tablet by mouth every morning. 05/11/23 Yes Doctor Unassigned, Jud spironolactone 25 mg tablet Take 1 tablet by mouth in the morning and 1 tablet in the evening. 09/30/23 Yes Doctor Unassigned, Jud DULoxetine 30 mg capsule Take 1 capsule by mouth in the morning. Doctor Unassigned, Jud furosemide 20 mg tablet Take 1 tablet by mouth every morning and evening. Doctor Unassigned, Jud Lacosamide (VIMPAT) 100 mg tablet Take 1 [...] or Shortness of Breath. 03/15/21 Lydia Desouza, FIBER OPTICS TECHNICIAN dicyclomine 20 mg tablet Take 1 tablet by mouth 4 (four) times daily as needed for Abdominal pain. 02/19/21 Estefania Lemons PAC proMETHazine 25 mg tablet Take 1 tablet by mouth every 6 (six) hours as needed for Nausea and Vomiting (N/V). 02/19/21 Estefania Lemons PAC ondansetron 4 mg tablet Take 4 mg by mouth every 8 (eight) hours as needed. Doctor Unassigned, Jud pantoprazole 40 mg EC tablet Take 40 mg by mouth daily. Doctor Unassigned, Jud amLODIPine (NORVASC) 10 mg tablet Take 1 Tab by mouth daily. 09/20/15 Kylee Diego MD carvedilol (COREG) 6.25 mg tablet Take 1 Tab by mouth 2 (two) times daily with meals. 09/20/15 Kylee Diego MD lisinopril (PRINIVIL,ZESTRIL) 40 mg tablet Take 1 Tab by mouth daily. 09/20/15 Kylee Diego MD loratadine (CLARITIN LIQUI-GEL) 10 mg capsule Take by mouth daily. Doctor Unassigned, Jud MULTIVITAMIN ORAL Take 1 Tab by mouth daily. Doctor Unassigned, Jud omega-3 fatty acids-vitamin E (FISH OIL) 1,000 mg capsule Take 1 g by mouth daily. Doctor Unassigned, Jud Allergies Allergen Reactions Green Tea Other - See comments Seizures Diclofenac Hypertension Keppra [Levetiracetam] Other - See comments Makes seizures worse Past surgical history: Past Surgical History: Procedure Laterality Date ANTERIOR CERVICAL FUSION CHOLECYSTECTOMY HAND/FINGER SURGERY UNLISTED Bilateral 3 L hand, 3 R hand METATARSAL OSTEOTOMY Right 08/14/2015 Surgeon: Luis Jones Jr., ESTHER; Location: [facility] [place] [place] TONSILLECTOMY Allergies: Allergies Allergen Reactions Green Tea [...] Friends and Family: Not on file Attends Baptism Services: Not on file Active Member of [...] Otherwise, Sonographically unremarkable right upper quadrant. RL: [id number] HS:Y CHEST PULMONARY ANGIOGRAM Result Date: 11/22/2023 1. Right lung lower lobe segmental pulmonary embolism. The patient is already on anticoagulation for lower extremity DVT. 2. Mild cardiomegaly. 3. Left adrenal nodule consider follow-up with elective contrast CT. ___ XR SHOULDER 2+ VW RIGHT Result Date: 11/22/2023 Impression: 1. No acute osseous abnormality. 2. Chronic findings as detailed. RL: 1824 End of Report LOWER EXTREMITY VEIN WITH COMPRESSION BILATERAL (ONLY FOR RULE OUT DVT) Result Date: 11/22/2023 Impression: Nonocclusive thrombus in the right common femoral/greater saphenous vein. Critical Result: DVT Findings were discussed with nurse Merlyn Osullivan, who acknowledged receipt and understanding of the findings, at 11/22/2023 3:47 AM. RL: 1824 End of Report CHEST 1 VW Result Date: 11/21/2023 Impression: No consolidation or pleural effusion. No pneumothorax. RL: 2823 End of Report SSMENT/PLAN: Heather Turner is a 53 year old female admitted to the hospital with: Decompensated acute on chronic HFrEF 15-20% EF Cardiogenic shock NSTEMI Congestive hepatopathy Lactic acidosis LV thrombus HTN Iron deficiency anemia Patient in cardiogenic shock with lactic acidosis and congestive hepatopathy on milrinone and lasix. New LV thrombus identified on TTE, currently on heparin gtt. Negative Osborne Criteria. Blood cultures NGTD. Received cefepime 1 [...] ordering referrals and/or communicating with other health personal care aid (not separately reported), documenting clinical information in the electronic or other health record, and care coordination (not separately reported). 53 yo F with cardiogenic shock and PE Acute decompensated HFrEF NSTEMI Pulmonary embolism Polysubstance use LV thrombus COPD Elevated lactate- started on milrinone on 11/21 Continue milrinone Continue anticoagulation RHC/LHC today for BiV failure Cr Fry MD Senior Interior Designer [facility] Cardiology 11/23/23 [facility] - Health 2023-11-22 02:28:50 MEDICINE [place] H&P PCP: PATIENT DOES NOT HAVE A PCP Date of Service: 11/21/2023 CHIEF COMPLAINT: SOB History of Present Illness Heather Turner is a 53 year old female with a PMH significant for HFrEF (~35% 05/2023), HTN, Smoker, COPD, chronic low back pain, depression presenting from [facility] ED due to SOB. Pt states her home pulse ox was reading 86% and was having trouble catching her breath. Associated sx include PETERSON, orthopnea, CP that is substernal, pressure-like, and non radiating. She says the SOB started earlier today with productive cough. Denies fevers or chills. No recent sick contacts. States she was treated for pneumonia at [place] 2 weeks ago with levaquin and prednisone [...] (chronic obstructive pulmonary disease) Diverticulitis Epilepsy Hypertension AK (myocardial infarction) 07/20/2007 Slipped disc Stomach cancer Substance abuse Marijuana daily-for anxiety Past Surgical History: Procedure Laterality Date ANTERIOR CERVICAL FUSION CHOLECYSTECTOMY HAND/FINGER SURGERY UNLISTED Bilateral 3 L hand, 3 R hand METATARSAL OSTEOTOMY Right 08/14/2015 Surgeon: Luis Jones Jr., ESTHER; Location: [facility] [place] [place] TONSILLECTOMY Family History Problem Relation Age of [...] Depakote - c/w flomax Pain UncontrolledTylenol and [place] Prophylaxis: DVT- heparin Stress Ulcer: pantoprazole Code Status: addressed: Full Code Cris Uli, DO Internal Medicine [place] Team Associated attestation [...] results to the patient. Ivis Mcdermott MD Senior Interior Designer Department of Internal Medicine Division of Cardiovascular Disease [facility] Procedure Notes Date/Time Note Provider Source 2025-02-05 18:28:00 Associated Order(s): Critical Care Procedure: Critical Care Performed by: Promise Alfaro MD Authorized by: Promise Alfaro MD Critical care provider statement: Critical care time (minutes): 30 Critical care start time: 02/05/2025 6:30 PM Critical care end time: 02/05/2025 7:00 PM Critical care time was exclusive of: Separately billable procedures and treating other patients and teaching time Critical care was necessary to treat or prevent imminent or life-threatening deterioration of the following conditions: FOOD SERVICE REPRESENTATIVE failure or compromise, shock, respiratory failure and circulatory failure Critical care was time spent personally by me on the following activities: Blood draw for specimens, discussions with consultants, evaluation of patient's response to treatment, examination of patient, interpretation of cardiac output measurements, obtaining history from patient or surrogate, ventilator management, re-evaluation of patient's condition, ordering and review of laboratory studies, ordering and review of radiographic studies and ordering and performing treatments and interventions I assumed direction of critical care for this patient from another provider in my specialty: no Care discussed with: admitting provider Promise Alfaro MD 02/06/25 2238 Emergency Medicine Physician Jeffry Bolaños 2023-11-23 15:17:41 Left Heart Cath/Coronary Angiography Date of Service: 11/23/2023 3:18 PM Indication/Diagnosis: heart failure Consent source: self Consent type: indications/complications discussed with patient/legal guardian; written consent obtained Time out completed: yes Aseptic technique: Chlorprep Local Anesthesia: 1% lidocaine without epinephrine Sedation: fentanyl 50 mcg, Versed 2 mg Access site: right radial artery, RIJ [place] 4.0 5fr 8 Fr IJ sheath [place] Rosalba Closure Method: TR Band, manual pressure [...] of right sided failure. Cris Molina MD earth science professor. Division of cardiovascular medicine [facility] IM-CARDIOVASCULAR DISEASE [facility] Notes <thead> Date/Time Note Provider Source 2025-04-09 17:55:[address] AT THIS TIME [facility] 2025-04-09 17:43:[address] WITH MEDICARE BILLER VIA STRETCHER [facility] 2025-04-09 15:57:00 PT PRESENTS TO THE ED WITH SOB AND CHEST PAIN. PT REPORTS HER SOB AND COUGH STARTED A FEW DAYS AGO BUT GRADUALLY GETTING WORSE. PT STATES SHE IS EXPERIENCING MID STERNAL CHEST PAIN THAT RADIATES UNDER HER LEFT BREAST THAT BEGAN THIS MORNING. PT IS NOTED TO HAVE AUDIBLE BILAT WHEEZING. Elizabeth Aguilar RN [facility] Future Procedures Future procedure information is unavailable Future Medications Future medication information is unavailable Patient Instructions <tbody> Shortness of Breath, Adult, [id number] Anemia Chest Wall Pain, Easy-to-Eleonora d Abdominal Pain, Adult, Easy- to-Read Nausea and Vomiting, Adult, Pzzh-ck-Gfey Chronic Back Pain, Easy-to-R ead [facility]2025-09-20 16:01:47 Patient Care Team <thead> Team Status: Active Member Role Status Dates . NO PHYSICIAN primary care physician Active RAEGAN FERREIRA MD Emergency Provider Active RAZA JOHNSON Next of Kin Active RAZA JOHNSON Emergency Contact Active [facility]2025-09-20 16:01:47 [facility]2025-09-18 22:15:31 Pt given printed and verbal discharge instructions regarding seizure. Pt verbalized understanding of instructions, pt awake alert oriented, resp reg unlabored, skin w/d, color appropriate for race, moves all ext well, pt encouraged to follow up with pcp. Advised to seek medical attention for new/prolonged/worsening of symptoms. No adverse reaction to meds given in ER noted upon discharge. PIV d'cd, dressing to site, catheter in tact. Awake, alert oriented, resp reg unlabored, skin w/d, pt leaving via WC to PV, in no apparent distress. [place] [id number] 21:21:57 Seizure witnessed. Lasted 15-20 seconds. Returned to baseline in approx 5 seconds. A&O x4, clear and appropriate speech. [place] 11372-09-18 19:50:53 Pure wick placed. [place] 11372-09-18 18:35:44 Pt having another seizure. Lasted approx 30 seconds. Returned back to baseline approx 15-20 seconds, alert to verbal stimuli. T [place] 11372-09-18 17:26:22 Pt awake, alert, obeying ERP commands. [place] [id number] 17:23:26 Pt began having another seizure. Lasting 30 second, decorticate posturing noted. Desat of O2 to 73%. T [place] 11372-09-18 17:22:49 Pt awake, alert. States "I'm having seizures and in a lot of pain." T [place] 11372-09-18 17:17:10 Pt presents to ED via POV for c/o seizures. Pt husbands reports 2-3 seizures in the last two hours. Does not see neurology. reports compliant with seizure meds. Two seizures in parking lot. Lasting 30-45 seconds. Pérez Diehl [place] [id number] 17:16:00 Associated Order(s): EKG-12 Lead ROUTINE ONCE Pre-Procedure Diagnose(s): Seizure Post-Procedure Diagnose(s): Seizure [facility] Emergency Department Note Patient Name: Heather Turner Date of : 1970 55 year old female Treatment Room: [facility] Primary Care Physician: Lb Lieberman Patient Escorted by: Self [9] Mode of Arrival: Personal means [1] EMS Treatment Prior to ED Arrival: AIRCRAFT AIR CONDITIONING MECHANIC treatment: Medication (comment) AIRCRAFT AIR CONDITIONING MECHANIC treatment comments: reports daily meds Travel and Exposure Screening: Symptoms Does patient have any of these symptoms?: (not recorded) Exposure Screening Has patient had contact with someone with a communicable disease in the last month?: (not recorded) Diseases exposed to:: (not recorded) Is Patient ?: (not recorded) Exposure Date: (not recorded) Chief Complaint: Chief Complaint Patient presents with Seizures History of Present Illness: History of Present Illness The patient presents via private vehicle for evaluation for seizure. She does have a history of both seizures as well as psychogenic seizures and is on Depakote. Her reported she had 2 or 3 seizures earlier today. She is seizing upon arrival to the ER. Her presentation is otherwise limited as the patient is not able to provide us with any information. Here for evaluation. Past Medical History/Immunizations: Past Medical History: Diagnosis Date Anxiety Extreme Bipolar disorder Breast pain 09/18/2015 Cauda equina compression 11/21/2023 diagnosed 08/2023 Congestive heart failure 2021 COPD (chronic obstructive pulmonary disease) Diverticulitis Epilepsy Hypertension AK (myocardial infarction) 07/20/2007 Slipped disc Stomach cancer Substance abuse Marijuana daily-for anxiety Tetanus received in last 5 years: Unknown Allergies: Allergies Allergen Reactions Green Tea Other - See comments Seizures Keppra [Levetiracetam] Other - See comments Makes [...] 08/14/2015 Surgeon: Luis Jones Jr., ESTHER; [facility] [facility] [place] [place] TONSILLECTOMY Review of Systems: Review of Systems Unable to perform ROS: Other Physical Exam: Physical Exam ED Triage Vitals [04/06/25 1718] Weight 83.9 kg (185 lb) Actual or estimated Height 1.575 m (5' 2") BP (!) 124/97 Pulse 104 Resp 19 Temp 36.9 ?C (98.4 ?F) Temp src SpO2 97 % Measured on Physical Exam Vitals and nursing note reviewed. Constitutional: General: She is not in acute distress. Appearance: Normal appearance. She is obese. She is not ill-appearing. HENT: Head: Normocephalic and atraumatic. Mouth/Throat: Mouth: Mucous membranes are dry. Cardiovascular: Rate and Rhythm: Normal rate and regular rhythm. Pulmonary: Effort: Pulmonary effort is normal. No respiratory distress. Breath sounds: No stridor. No wheezing or rhonchi. Abdominal: General: There is no distension. Palpations: Abdomen is soft. Musculoskeletal: General: Normal range of motion. Cervical back: Normal range of motion and neck supple. Skin: General: Skin is warm and dry. Neurological: Comments: Approximately 1 minute after her episodes stop she is able to answer questions appropriately and follow commands by moving all extremities x 4. Radiology: CT TRAUMA HEAD WO CONTRAST Final Result Exam: CT Head Without Contrast, 04/06/2025 5:45 PM. Ordering Physician: SAPNA QUIROZ. History: seizure, hit head, h/o etoh . Comparison: CT head 02/11/2025. Technique: CT head was obtained without intravenous contrast. CT was performed according to ALARA (As Low As Reasonably Achievable). Technical Quality: Motion degrades image quality somewhat.. Findings: There is no parenchymal hemorrhage, mass effect, or midline shift. There are no extra-axial fluid collections. Rose-white matter differentiation is preserved. There is no acute major vascular territory infarct. Ventricles, basal cisterns, and cortical sulci are normal in caliber. Osseous structures are unremarkable. Visualized orbits and mastoid complexes are normal. Paranasal sinuses are clear. IMPRESSION Impression: Unremarkable noncontrast head CT. Motion limits the study somewhat. RL: [id number] End of Report Lab Results: Lab Results CBC WITH DIFF - Abnormal Result Value Ref Range WBC 9.56 4.30 - 11.10 10*3/?L RBC 4.41 3.93 - 5.25 10*6/?L HGB 11.1 (*) 11.6 - 15.0 g/dL HCT 36.8 35.7 - 45.2 % MCV 83.4 80.6 - 95.5 fL MCH 25.2 (*) 25.9 - 32.8 pg MCHC 30.2 (*) 31.6 - 35.1 g/dL RDW-SD 50.5 (*) 39.0 - 49.9 fL RDW-CV 16.7 (*) 12.0 - 15.5 % PLT 401 (*) 166 - 358 10*3/?L MPV 8.2 (*) 9.5 - 12.9 fL NRBC/100 WBC 0.0 0.0 - 10.0 /100 WBCs NRBC x103<0.01 10*3/?L GRAN MAT (NEUT) % 58.4 % IMM GRAN % 0.80 % LYMPH % 31.9 % MONO % 6.2 % EOS % 1.8 % BASO % 0.9 % GRAN MAT x103(ANC) 5.58 1.88 - 7.09 10*3/uL IMM GRAN x1030.08 (*) 0.00 - 0.06 10*3/uL LYMPH x1033.05 1.32 - 3.29 10*3/uL MONO x1030.59 0.33 - 0.92 10*3/uL EOS x1030.17 0.03 - 0.39 10*3/uL BASO x1030.09 (*) 0.01 - 0.07 10*3/uL COMP. METABOLIC PANEL (64507) - Abnormal NA 138 135 - 145 mmol/L K 4.8 3.5 - 5.0 mmol/L CL 110 (*) 98 - 108 mmol/L CO2 TOTAL 17 (*) 23 - 31 mmol/L AGAP 11 2 - 16 BUN 14 7 - 23 mg/dL GLUCOSE 100 70 - 110 mg/dL CREATININE 0.62 0.50 - 1.04 mg/dL TOTAL BILI 0.3 0.1 - 1.1 mg/dL CALCIUM 8.8 8.6 - 10.6 mg/dL T PROTEIN 7.1 6.3 - 8.2 g/dL ALBUMIN 4.2 3.5 - 5.0 g/dL ALK PHOS 89 34 - 122 U/L ALTv 11 5 - 35 U/L AST(SGOT) 16 13 - 40 U/L eGFR 106.6 mL/min/1.73m2 VALPROIC ACID, TOTAL - Abnormal VALPROIC A 120 (*) 50 - 100 ug/mL URINALYSIS - Abnormal APPEARANCE Clear Clear COLOR Straw (*) Yellow PH 5.0 4.8 - 8.0 SP GRAVITY 1.006 1.003 - 1.030 GLU U QUAL Normal Normal BLOOD Negative Negative KETONES Negative Negative PROTEIN Negative Negative UROBILIN Normal Normal BILIRUBIN Negative Negative NITRITE Negative Negative LEUK GRUPO Negative Negative RBC/HPF <1 0 - 3 HPF WBC/HPF 1 0 - 5 HPF BACTERIA Moderate (*) Negative SQ EPITH 1 <=1 HPF LACTIC ACID WITH 2 HOUR REFLEX - Normal LACTIC ACID 1.59 0.50 - 2.20 mmol/L FENTANYL (IMMUNOASSAY) - Normal FENTANYL Negative Negative ETHANOL ALCOHOL <10 mg/dL URINE DRUG (IMMUNOASSAY) - COMPREHENSIVE DRUG SCREEN W/O REFLEX EKG: If EKG completed, see Procedure Note. Orders and Treatments: Orders Placed This Encounter Procedures CT TRAUMA HEAD WO CONTRAST CBC WITH DIFF COMP. METABOLIC PANEL (50496) ETHANOL Valproic Acid, Total LACTIC ACID WITH 2 HOUR REFLEX URINALYSIS URINE DRUG (IMMUNOASSAY) - COMPREHENSIVE DRUG SCREEN W/O REFLEX Fentanyl (Immunoassay) NASAL CANNULA Orders Placed This Encounter Medications NaCl 0.9% (NS) bolus infusion 500 mL DISCONTD: fosphenytoin (CEREBYX) injection 1,500 mg PE fosphenytoin (CEREBYX) 1,500 mg PE in NaCl 0.9% (NS) piggyback hydrOXYzine (ATARAX) tablet 25 mg First Provider Eval: ED Events Date/Time Event User Comments 04/06/25 1728 Medical Screening Begins SAPNA QUIROZ -- 04/06/25 1728 First Provider Evaluation SAPNA QUIROZ -- ED COURSE Diagnosis/Impression as of 04/06/25 2207 Seizure History of psychogenic nonepileptic seizure Results Procedures: EKG-12 Lead ROUTINE ONCE Date/Time: 04/06/2025 6:13 PM Performed by: Sapna Quiroz DO Authorized by: Sapna Quiroz DO ECG interpreted by ED Physician in the absence of a rover tender: yes Interpretation: Interpretation: normal Rate: ECG rate: 97 ECG rate assessment: normal Rhythm: Rhythm: sinus rhythm Ectopy: Ectopy: none QRS: QRS axis: Normal QRS intervals: Normal QRS conduction: normal ST segments: ST segments: Normal T waves: T waves: normal Q waves: Abnormal Q-waves: not present MDM: Assessment & Plan Medical Decision Making The patient presents via private vehicle for evaluation for seizure. She does have a history of both seizures as well as psychogenic seizures and is on Depakote. Her reported she had 2 or 3 seizures earlier today. She is seizing upon arrival to the ER. Her presentation is otherwise limited as the patient is not able to provide us with any information. Vital signs are stable in the ER. Upon arrival into the examination room the patient was witnessed to have a seizure-like episode. It did self resolve in less than 1 minute after the termination of the episode she was able to answer questions appropriately and follow commands. She has had several other episodes that spontaneously self resolve and after 1 minute she is able to answer questions appropriately and follow commands. Suspect she is continuing to have psychogenic seizures. As she was reported to have hit her head at home with one of her seizures we will obtain a CT of her head. The patient was loaded with IV fosphenytoin here in the ER. Will check laboratory studies including a Depakote and an alcohol level. She was recently admitted to the [facility] on February 17 through February 19 of this year where she was seen by the neurology team. They did increase her gabapentin dose at that time and kept her Depakote dose the same. Final disposition pending. 2205 -the patient is doing well here in the ER. The CT of her head shows no acute intracranial abnormalities. Her valproic acid level is slightly elevated 120. Her lactic acid level is normal at 1.59 despite the multiple episodes she has had today. She was loaded with IV fosphenytoin here in the ER and given a liter of IV fluids. She has had several additional episodes that self resolved and approxi-1 minute later she is able to answer questions and follow commands again. Suspect psychogenic seizures. She does follow with neurology with Cynthia Garcia and reports she is a follow-up appointment with them next week. She remained stable here in the ER and is okay for discharge home with PCP follow-up in 1 week. Problems Addressed: History of psychogenic nonepileptic seizure: chronic illness or injury Seizure: acute illness or injury Amount and/or Complexity of Data Reviewed Independent Historian: spouse Labs: ordered. Decision-making details documented in ED Course. Radiology: ordered and independent interpretation performed. Decision-making details documented in ED Course. ECG/medicine tests: ordered and independent interpretation performed. Decision-making details documented in ED Course. Risk Prescription drug management. Flowsheet Documentation: Scoring Tools: No data recorded Disposition/Condition: ED Disposition ED Disposition Discharge Condition Stable Comment -- Discharge Medications: Patient's Medications START taking these medications No medications on file CONTINUE taking these medications which have NOT CHANGED ASPIRIN 81 MG CHEWABLE TABLET Take 1 tablet by mouth in the morning. ATORVASTATIN 40 MG TABLET Take 0.5 tablets by mouth at bedtime. BUSPIRONE 5 MG TABLET Take 1 tablet by mouth in the morning. CARVEDILOL 3.125 MG TABLET Take 1 tablet by mouth in the morning and 1 tablet in the evening. Take with meals. CLONAZEPAM 0.5 MG TABLET Take 1 tablet by mouth at bedtime as needed for Insomnia. CYCLOBENZAPRINE 5 MG TABLET Take 1 tablet by mouth in the morning and 1 tablet at noon and 1 tablet in the evening. DIVALPROEX ER 500 MG 24 HR TABLET Take 2 tablets by mouth every 12 (twelve) hours. DULOXETINE 30 MG CAPSULE Take 1 capsule by mouth in the morning. FOLIC ACID 1 MG TABLET Take 1 tablet by mouth in the morning. GABAPENTIN 300 MG CAPSULE Take 2 capsules by mouth in the morning and 2 capsules at noon and 2 capsules in the evening. IPRATROPIUM-ALBUTEROL 0.5 MG-3 MG(2.5 MG BASE)/3 ML NEBULIZER SOLUTION Inhale 3 mL every 6 (six) hours as needed for Wheezing or Shortness of Breath. LACTULOSE 10 GRAM/15 ML SOLUTION Take 30 mL by mouth 2 times daily as needed for Constipation. LEVOTHYROXINE 25 MCG TABLET Take 1 tablet by mouth every morning. Do not start before February 20, 2025. LORATADINE (CLARITIN LIQUI-GEL) 10 MG CAPSULE Take by mouth daily. LOSARTAN 25 MG TABLET Take 1 tablet by mouth in the morning. METHOCARBAMOL 500 MG TABLET Take 1 tablet by mouth in the morning and 1 tablet in the evening. MIRTAZAPINE 15 MG TABLET Take 1 tablet by mouth at bedtime. MULTIVITAMIN ORAL Take 1 Tab by mouth daily. OMEGA-3 FATTY ACIDS-VITAMIN E (FISH OIL) 1,000 MG CAPSULE Take 1 g by mouth daily. PYRIDOXINE, VITAMIN B6, 50 MG TABLET Take 2 tablets by mouth in the morning. SPIRONOLACTONE 25 MG TABLET Take 0.5 tablets by mouth in the morning. THIAMINE 100 MG TABLET Take 1 tablet by mouth in the morning. THIAMINE MONONITRATE 100 MG TABLET Take 1 tablet by mouth in the morning. Do not start before February 26, 2025. VITAMIN B-12 1,000 MCG TABLET Take 1 tablet by mouth in the morning. START taking Modified Medications as Prescribed No medications on file STOP taking these medications No medications on file Follow-up: Follow-up Information None Electronically signed by: Sapna Quiroz DO 04/06/252206 [id number] 15:12:58* [facility]2025-09-17 15:12:58* Demetrius Tobar FNP-Adi - 04/05/2025 2:30 PM CDT HPI: Heather Turner is a 55 year old female is here for ER F/U (Last week for chest pain ) . HPI Patient presents today for ER follow-up JARRED 02/10/25 Patient went to the ER for chest pain Pt was having chest pain and vomiting She had labs drawn Pt denies any chest pain, shortness of breath, palpitations today. Intermittent dizziness. Was referred to cardiology Dr. Leavitt in the past but hasn't scheduled an appt yet CHF: taking coreg, losartan, spirinolactone, prazosin, ASA 81 mg daily Was in [facility] in [place] and had an echo done in the past Seizures: Pt will schedule with neurology [facility] to establish care. [facility] to [facility] in [facility] in the past for uncontrolled seizures. Requesting refill of her divalproex. Pt c/o of left ear pain which started last night. No drainage or dizziness. PTSD/ Anxiety: taking klonopin and buspar. Requesting refills. Pt has trouble sleeping. Was intubated in the past. Pt will need to see pain management. Pt has hx of laminectomy last year. In chronic pain. Spine appt 05/01/25. 02/18/25: Hemoglobin 10.4. Hematocrit 33.5. MCHC 31. Platelets 429. Creatinine 0.62. GFR 106. ALT 20. AST 23. Magnesium 1.8. Phosphorus 4.9. 02/17/25: Troponin 0.005. proBNP 168. A1c 5.2. Current Medications: Current Medications[1] Allergies: Green tea, Levetiracetam, Fluoxetine, and Diclofenac I have reviewed the past Medical, Family, and Social history. Review of Systems: All systems are negative, except those pertinent items mentioned in the HPI. Review of Systems HENT: Positive for ear pain. Negative for congestion, ear discharge and sore throat. Respiratory: Negative for chest tightness, shortness of breath and wheezing. Cardiovascular: Negative for chest pain, palpitations and leg swelling. Neurological: Negative for dizziness and headaches. Psychiatric/Behavioral: The patient is nervous/anxious. Physical Exam: BP 138/79 (Side: Left Arm, Position: SITTING, Cuff Size: Large Adult) | Pulse 96 | Temp 97.9 ?F (36.6 ?C) (Tympanic) | Resp 20 | Ht 5' 3" (1.6 m) | Wt 185 lb (83.9 kg) | SpO2 100% | BMI 32.77 kg/m? Physical Exam Vitals and nursing note reviewed. Constitutional: Appearance: Normal appearance. She is not ill-appearing. Cardiovascular: Rate and Rhythm: Normal rate and regular rhythm. Heart sounds: Normal heart sounds. No murmur heard. Pulmonary: Effort: Pulmonary effort is normal. No respiratory distress. Breath sounds: Normal breath sounds. No wheezing. Musculoskeletal: Right lower leg: No edema. Left lower leg: No edema. Neurological: Mental Status: She is alert. Assessment and Plan: Heather was seen today for er f/u. Diagnoses and all orders for this visit: Chronic systolic congestive heart failure (multi HCC)- LIPID PANEL; Future Coronary artery disease involving inaja coronary artery of inaja heartwithout angina pectoris - LIPID PANEL; Future PTSD (post-traumatic stress disorder)- busPIRone HCl 5 MG oral Tablet; Take 1 tablet (5 mg total) by mouth 3 times daily as needed (anxiety). - Clonazepam (KlonoPIN) 0.5 MG oral Tablet; Take 1 tablet (0.5 mg total) by mouth 2 times daily as needed for anxiety. Bipolar affective disorder, remission status unspecified (multi HCC) Seizure disorder (multi HCC)- Divalproex Sodium 500 MG oral Tablet Delayed Response; Take 2 tablets (1,000 mg total) by mouth 2 times daily. Patient advised to bring all her medications so we can reconcile in clinic CHF/CAD: Patient advised to schedule an appointment with cardiology Dr. Leavitt. Will provide information to the clinic for patient today. Recommend to continue aspirin 81 mg daily, prazosin 1 mg nightly, Coreg 3.125 mg twice daily, and losartan 25 mg daily. Recommend to continue with a 1500 cc per day fluid restriction and low-salt [place] [employer] diet. Recommend to monitor weight daily. If weight increases by more than 5 pounds in a week and/or you notice increased shortness of breath/edema to the lower extremities, medication may need to be added or adjusted. This can be further addressed by your health care provider. PTSD/bipolar: Will provide refills of BuSpar 5 mg 3 times daily as needed and Klonopin 0.5 mg twice daily as needed. Patient advised she will need to schedule an appointment with psychiatry for future refills of Klonopin. Recommend slow deep breathing exercises. Consider cognitive behavioral health services. Seizure disorder: Recommend to continue divalproex 1000 mg twice daily. Patient will call to schedule appointment with neurology. ER precautions: If experiencing any chest pain, shortness of breath, dizziness, headache please go to the emergency room immediately. Return in about 4 weeks (around 05/03/2025) for Follow up anxiety and after seeing cardiology . Demetrius Tobar, DANIELA-CSP: DO [facility] This document was completed using voice recognition software. This can produce harvest worker errors that can at times significantly distort words and phrases. Please interpret any aspect of the note that is nonsensical in light of this fact. [1]Current Outpatient Medications Medication Sig Dispense Refill Acetaminophen-Codeine (TYLENOL/CODEINE #3) 300-30 MG oral Tablet Take 1 tablet by mouth every 6 hours as needed for pain. Aspirin 81 MG oral Tablet Delayed Response Take 1 tablet (81 mg total) by mouth daily. busPIRone HCl 5 MG oral Tablet Take 1 tablet (5 mg total) by mouth 3 times daily as needed (anxiety). 90 tablet 1 Carvedilol 3.125 MG oral Tablet Take 1 tablet (3.125 mg total) by mouth in the morning and 1 tablet (3.125 mg total) in the evening. Take with meals. 60 tablet 3 Clonazepam (KlonoPIN) 0.5 MG oral Tablet Take 1 tablet (0.5 mg total) by mouth 2 times daily as needed for anxiety. 60 tablet 0 Constulose 10 GM/15ML oral Solution Cyanocobalamin (Vitamin B-12) 1000 MCG oral Tablet Take 1 tablet (1,000 mcg total) by mouth daily. Divalproex Sodium 500 MG oral Tablet Delayed Response Take 2 tablets (1,000 mg total) by mouth 2 times daily. 180 tablet 0 Duloxetine HCl [address] Particles Take 1 capsule (20 mg total) by mouth daily. 60 capsule 0 Folic Acid 1 MG oral tablet Gabapentin 300 MG oral Capsule Take 1 capsule (300 mg total) by mouth 3 times daily. Lactulose Encephalopathy 10 GM/15ML oral Solution Take 30 mL (20 g total) by mouth 2 times daily as needed. Levothyroxine Sodium 25 MCG oral Tablet Take 1 tablet (25 mcg total) by mouth daily. 30 tablet 1 Losartan Potassium 25 MG oral Tablet Take 1 tablet (25 mg total) by mouth daily. Methocarbamol 500 MG oral Tablet Nitroglycerin 0.4 MG sublingual SL Tab 1 tablet (0.4 mg total). Prazosin HCl 1 MG oral Capsule Take 1 capsule (1 mg total) by mouth nightly. 90 capsule 0 Spironolactone 25 MG oral Tablet Take 0.5 tablets (12.5 mg total) by mouth daily. Thiamine HCl 100 MG oral Tablet Take 1 tablet (100 mg total) by mouth daily. Albuterol HFA 108 (90 Base) MCG/ACT IN AERS Inhale 1 puff into the lungs every 6 hours as needed. No current facility-administered medications for this visit. Dago MarieRadha [id number] 15:12:58Upcoming Encounters Scheduled Orders Name Type Priority Associated Diagnoses Orde r Schedule LIPID PANEL Lab Routine Chronic systolic congestive heart failure (multi HCC) Coronary artery disease involving inaja coronary artery of inaja heart without angina pectoris Expected: 04/05/2025 (Approximate), Expires: 07/04/2025 Health Maintenance Due Date Last Done Comments COLONOSCOPY 1972 CT Colonography 1972 Cologuard 1972 Colorectal Cancer Screening 1972 FIT Tests 1972 Sigmoidoscopy 1972 Creatinine Level (Kidney Fun ction Test) 01/14/1990 Diabetes: Retinopathy Screening 01/14/1990 Diabetes: Urine Protein Screening 01/14/1990 Lipid Panel 01/14/1990 Pneumococcal Vaccine: 50+ Ye ars (1 of 2 - PCV) 01/14/1991 Tdap Vaccines 01/14/1991 PAP SMEAR WITH HPV 01/14/2002 Physical Exam 2012 Mammogram 09/16/2017 09/17/2015 Lung Cancer Screening 01/14/2022 Zoster Vaccines (1 of 2) 01/14/2022 COVID-19 Vaccine (4 - season) 2025 02/19/2022, 05/24/2021, 05/03/2021 Influenza Vaccines (#1) 2025 Diabetes: Hemoglobin A1C 08/20/2025 025, 11/22/2023, 04/13/2022 RSV Vaccines (1 - 1-dose 75+ series) 01/14/2047 [facility]2025-09-17 15:12:58 Diagnosis Chronic systolic congestive heart failure (multi HCC) - Primary Chronic systolic heart failure Coronary artery disease invo lving inaja coronary artery of inaja heart without angina pectoris PTSD (post-traumatic stress disorder) Posttraumatic stress disorder Bipolar affective disorder, remission status unspecified (multi HCC) Seizure disorder (multi HCC) Unspecified epilepsy without mention of intractable epilepsy [facility]2025-09-17 15:12:58 [facility]2025-08-27 15:59:48 [id number] 15:59:48 [place] [id number] 15:25:54 Problem: Falls, Risk of Goal: Absence of falls Outcome: Adequate for discharge Problem: Pain Goal: Control of pain at or below patient's documented comfort goal Outcome: Adequate for discharge Goal: Reduction in pain sensation Outcome: Adequate for discharge Problem: Infection Risk Goal: Absence of infection Outcome: Adequate for discharge Problem: Skin integrity Impaired (Risk or Actual) Goal: Wound healing Outcome: Adequate for discharge Goal: Prevention of new skin breakdown Outcome: Adequate for discharge Problem: Activity Intolerance Goal: Improved activity tolerance Outcome: Adequate for discharge [facility]2222[facility] 23:15:29 Problem: Falls, Risk of Goal: Absence of falls Outcome: Progressing as expected Problem: Pain Goal: Control of pain at or below patient's documented comfort goal Outcome: Progressing as expected Goal: Reduction in pain sensation Outcome: Progressing as expected Problem: Infection Risk Goal: Absence of infection Outcome: Progressing as expected Problem: Skin integrity Impaired (Risk or Actual) Goal: Wound healing Outcome: Progressing as expected Goal: Prevention of new skin breakdown Outcome: Progressing as expected Problem: Activity Intolerance Goal: Improved activity tolerance Outcome: Progressing as expected Rocco Barrientos [id number] 15:10:53 Rapid Response Note Rapid Response activated for seizure activity. Monitoring, oxygen escalation and antiepileptic medication administration provide. Patient to remain at present level of care per Dr. Cedeno. Rapid Response Note Rj Perez [id number] 04:52:21 Problem: Falls, Risk of Goal: Absence of falls Outcome: Progressing as expected Problem: Pain Goal: Control of pain at or below patient's documented comfort goal Outcome: Progressing as expected Goal: Reduction in pain sensation Outcome: Progressing as expected Problem: Infection Risk Goal: Absence of infection Outcome: Progressing as expected Problem: Skin integrity Impaired (Risk or Actual) Goal: Wound healing Outcome: Progressing as expected Goal: Prevention of new skin breakdown Outcome: Progressing as expected Problem: Activity Intolerance Goal: Improved activity tolerance Outcome: Progressing as expected [id number] 13:47:38 Problem: Falls, Risk of Goal: Absence of falls Outcome: Progressing as expected Problem: Pain Goal: Control of pain at or below patient's documented comfort goal Outcome: Progressing as expected Goal: Reduction in pain sensation Outcome: Progressing as expected Problem: Infection Risk Goal: Absence of infection Outcome: Progressing as expected Problem: Skin integrity Impaired (Risk or Actual) Goal: Wound healing Outcome: Progressing as expected Goal: Prevention of new skin breakdown Outcome: Progressing as expected Problem: Activity Intolerance Goal: Improved activity tolerance Outcome: Progressing as expected [facility]2025-08-01 07:38:45 Problem: Falls, Risk of Goal: Absence of falls Outcome: Progressing as expected Problem: Pain Goal: Control of pain at or below patient's documented comfort goal Outcome: Progressing as expected Goal: Reduction in pain sensation Outcome: Progressing as expected Problem: Infection Risk Goal: Absence of infection Outcome: Progressing as expected Problem: Skin integrity Impaired (Risk or Actual) Goal: Wound healing Outcome: Progressing as expected Goal: Prevention of new skin breakdown Outcome: Progressing as expected Problem: Activity Intolerance Goal: Improved activity tolerance Outcome: Progressing as expected [facility]2025-07-29 14:31:43 [id number] 14:31:43 [place] [id number] 20:33:00 [facility] EMERGENCY PROVIDER REPORT REPORT#:[id number] REPORT STATUS: Signed DATE:02/13/25 TIME:2032 PATIENT: HEATHER TURNER UNIT #: [id number] ROOM/BED: : 72 AGE: 55 SEX: F PCP PHYS: No Primary or Family Physician SERVICE AUTHOR: Uzma Jacobo MD REP SRV REP SRV TM: 2032 * ALL edits or amendments must be made on the electronic/computer document * HPI-Seizure General Initial Greet Date/Time 02/13/25 194 Presentation Chief Complaint Seizure, generalized Free Text HPI Notes Free Text HPI Notes 55-year-old female with a history of hypertension, myocardial infarction, COPD, anxiety, marijuana use, bipolar disorder, herniated disc, diverticulitis, epilepsy, gastric cancer, congestive heart failure, prior cauda equina compression syndrome diagnosed 08/2023 who was brought in by EMS for seizure. Per EMS, the patient had 8-9 seizures at home. She presented to the [facility] emergency department for further evaluation and had additional seizures there. She was given diazepam 2 mg x 2 doses. No further seizures were noted. She was then transferred to [facility]. Patient complains of headache and generalized body aches. She has a bag of medications which include Depakote. She is unsure if she has been taking the prescribed lacosamide. She states she has 3-4 seizures per week. She has not established regular follow-up with a neurologist. Past medical history: As above Past surgical history: Cholecystectomy, hand surgery,tonsillectomy, metatarsal osteotomy, anterior cervical fusion Social history: History of smokeless tobacco use. Patient smokes marijuana. No alcohol use. External Notes reviewed from [facility] patient presented to the ED for seizures. She received diazepam 2 mg x 2 doses, ketorolac 15 mg. Home antiepileptic medications include divalproex 1000 mg twice daily and lacosamide 100 mg twice daily. Past medical history obtained from outside hospital notes Labs hemoglobin 8.7, BMP within normal limits valproic acid level 64 ( therapeutic) Risk-Seizure Risk Stratification NIH Stroke Scale NIH Stroke Scale Response Value NIHSS Applicable? No 0 Total 0 Review of Systems ROS Statements All systems rev neg except as marked. Past Medical History - Adult Stated Complaint SEIZURES Allergies Coded Allergies: levetiracetam (From [facility]) (Severe, SOB/HIVES 02/13/25) Calculated Suicide Risk (nurs) No risk Smoking status for patients 13 years old or older: Never Smoker Physical Exam Vital Signs Vital Signs First Documented: Result Date Time Pulse Ox 97 02/13 1938 B/P 144/79 02/13 1938 O2 Delivery Room air 02/13 1938 Temp 36.7 02/13 1938 Pulse 96 02/13 1938 Resp 02/13 Last Documented: Result Date Time Pulse Ox 97 02/13 1938 B/P 144/79 02/13 1938 O2 Delivery Room air 02/13 1938 Temp 36.7 02/13 1938 Pulse 96 02/13 1938 Resp 02/13 Review of Vital Signs Reviewed Free Text PE Notes Free Text PE Notes General/constitutional: Awake, alert, well-appearing, in no apparent distress Head: Atraumatic, normocephalic Eyes: Extraocular movements intact. No periorbital swelling. Conjunctiva clear. Ears/nose/throat: Airway patent. Mucous membranes moist. Respiratory/chest: Breath sounds clear bilaterally. No wheezing. Cardiovascular: Regular rate and rhythm. Abdomen: Soft, nontender, nondistended. Back: No CVA tenderness Extremities: No edema. No deformity. Skin: No rash Neurologic: patient alert and oriented x 3. Normal speech. Moving all extremities. Psychiatric: Mood and affect appropriate Interpretation Diagnostics Lab Results Interpretation Lab Statement Laboratory studies reviewed and considered in the medical decision-making. Re-Evaluation MDM Free Text MDM Notes Free Text MDM Notes 55-year-old female with a history of epilepsy who was transferred from [facility] for seizure. She was treated with diazepam prior to arrival and seizures have resolved. Outside hospital labs were reviewed. Patient was noted to be anemic. BMP was within normal limits. Patient declined further labs, imaging, neurology consult, and admission. She left the emergency department AMA ED Course Medication(s) Ordered Medication(s) Ordered: Central Nervous System Agents Sig/Sanchez Start time Last Medication Dose Route Stop Time Status Admin Divalproex Sodium 1,000 MG X1ED STA 02/14 1944 DC PO 02/13 1945 Lacosamide 200 MG X1ED STA 02/13 1943 DC IV 02/14 1944 Differential Diagnosis )( Differential Diagnosis recurrent seizures, status epilepticus, blood loss, intracranial process, medication noncompliance Patient Discharge Departure Vital Signs/Condition Vital Signs First Documented: Result Date Time Pulse Ox 97 02/13 1938 B/P 144/79 02/13 1938 O2 Delivery Room air 02/13 1938 Temp 36.7 02/13 1938 Pulse 96 02/13 1938 Resp 02/13 Last Documented: Result Date Time Pulse Ox 97 02/13 1938 B/P 144/79 02/13 1938 O2 Delivery Room air 02/13 1938 Temp 36.7 02/13 1938 Pulse 96 02/13 1938 Resp 02/13 All vital signs available at the time of this entry have been reviewed. Condition Stable Clinical Impression Clinical Impression Primary Impression: Seizure Time of Impression 2041 Disposition Decision Other )( Time 2039 )( Date 02/13/25 Against Medical Advice Yes at 2044 [facility] #: [id number] END OF [id number] 18:50:00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 mg total) by mouth 2 times daily as needed for anxiety. 60 tablet 0 Divalproex Sodium 500 MG oral Tablet Delayed Response Take 2 tablets (1,000 mg total) by mouth 2 times daily. Duloxetine HCl [address] Particles Take 1 capsule (20 mg total) by mouth daily. 60 capsule 0 Gabapentin 300 MG oral Capsule Take 1 capsule (300 mg total) by mouth 3 times daily. Levothyroxine Sodium 25 MCG oral Tablet Take 1 tablet (25 mcg total) by mouth daily. Prazosin HCl 1 MG oral Capsule Take 1 capsule (1 mg total) by mouth nightly. 90 capsule 0 Acetaminophen-Codeine (TYLENOL/CODEINE #3) 300-30 MG oral Tablet Take 1 tablet by mouth every 6 hours as needed for pain. (Patient not taking: Reported on 02/10/2025.) Albuterol HFA 108 (90 Base) MCG/ACT IN AERS Inhale 1 puff into the lungs every 6 hours as needed. Nitroglycerin 0.4 MG sublingual SL Tab 1 tablet (0.4 mg total). No current facility-administered medications for this visit.[2] Allergies Allergen Reactions Green Tea Other and Anxiety Seizure like activity Seizures Seizures Seizure like activityLevetiracetam Anaphylaxis, Nausea and Vomiting and Other Intensifies seizure Makes seizures worse Makes seizures worse Intensifies seizure Other Reaction(s): "MAKES ME FEEL FUNNY", UNCONSCIOUSFluoxetine Rash Diclofenac Anxiety [3] Past Medical History: Diagnosis Date Anxiety CAD (coronary artery disease) CHF (congestive heart failure) (multi HCC) COPD (chronic obstructive pulmonary disease) (multi HCC) Depression DM (diabetes mellitus) (multi HCC) History of cocaine use History of colon polyps History of CVA (cerebrovascular accident) History of AK (myocardial infarction) Marijuana use Seizure (multi HCC) Tobacco use [4] Social History Tobacco Use Smoking status: Every Day Current packs/day: 0.75 Average packs/day: 0.7 packs/day for 39.1 years (29.3 ttl pk-yrs) Types: Cigarettes Start date: 01/04/1986 Smokeless tobacco: Never Vaping Use Vaping status: Never Used Substance Use Topics Alcohol use: Yes Alcohol/week: 2.4 oz Types: 4 Cans of beer per week Drug use: Yes Comment: cocaine/marijuana [5] No family history on file. [facility]2025-07-25 18:50:09Scheduled Orders Scheduled Referrals Name Type Priority Associated Diagnoses Orde r Schedule REFERRAL TO NEUROLOGY- [facility] Referral Routine Seizure disorder ([facility]) Ordered: 02/10/2025 REFERRAL TO PSYCHIATRY- EXTERNAL Referral Routine PTSD (post-traumatic stress disorder) Anxiety disorder with panic attacks Ordered: 02/10/2025 REFERRAL TO CARDIOLOGY- EXTERNAL Referral Routine Hypertension, unspecified type Chronic systolic congestive heart failure (multi HCC) Coronary artery disease involving inaja coronary artery of inaja heart without angina pectoris Ordered: 02/10/2025 REFERRAL TO SPINE CENTER- [facility] Referral Routine Chronic bilateral low back pain without sciatica History of back surgery Cervical myelopathy (multi HCC) Spinal stenosis, unspecified spinal region Back pain, unspecified back location, unspecified back pain laterality, unspecified chronicity Ordered: 02/10/2025 REFERRAL TO PAIN MANAGEMENT- [facility] Referral Routine Chronic bilateral low back pain without sciatica History of back surgery Cervical myelopathy (multi HCC) Spinal stenosis, unspecified spinal region Back pain, unspecified back location, unspecified back pain laterality, unspecified chronicity Ordered: 02/10/2025 Health Maintenance Due Date Last Done Comments COLONOSCOPY 1972 CT Colonography 1972 Cologuard 1972 Colorectal Cancer Screening 1972 FIT Tests 1972 Sigmoidoscopy 1972 Creatinine Level (Kidney Fun ction Test) 01/14/1990 Diabetes: Retinopathy Screening 01/14/1990 Diabetes: Urine Protein Screening 01/14/1990 Lipid Panel 01/14/1990 Tdap Vaccines 01/14/1991 PAP SMEAR WITH HPV 01/14/2002 Physical Exam 2012 Mammogram 09/16/2017 09/17/2015 Lung Cancer Screening 01/14/2022 Zoster Vaccines (1 of 2) 01/14/2022 Pneumococcal Vaccine: 50+ Ye ars (2 of 2 - PCV) 09/11/2022 09/11/2021 COVID-19 Vaccine (4 - season) 2024 02/19/2022, 05/24/2021, 05/03/2021 Diabetes: Hemoglobin A1C 05/24/2024 11/22/2023, 03/21 Influenza Vaccines (#1) 2025 09/11/2021 RSV Vaccines (1 - 1-dose 75+ series) 01/14/2047 [facility]2025-07-25 18:50:09 Diagnosis Hypertension, unspecified ty pe - Primary Chronic systolic congestive heart failure (multi HCC) Chronic systolic heart failure Coronary artery disease invo lving inaja coronary artery of inaja heart without angina pectoris Bipolar affective disorder, remission status unspecified (multi HCC) Seizure disorder (multi HCC) Unspecified epilepsy without mention of intractable epilepsy Type 2 diabetes mellitus wit h hyperglycemia, without long-term current use of insulin (multi HCC) Chronic bilateral low back p ain without sciatica History of back surgery Other postprocedural status Cervical myelopathy (multi HCC) Cervical spondylosis with myelopathy Spinal stenosis, unspecified spinal region Nightmare Other dysfunctions of sleep stages or arousal from sleep Current mild episode of rj r depressive disorder without prior episode Back pain, unspecified back location, unspecified back pain laterality, unspecified chronicity Elevated glucose Other abnormal glucose Hypothyroidism, unspecified type PTSD (post-traumatic stress disorder) Posttraumatic stress disorder Anxiety disorder with panic attacks [facility]2025-07-25 18:50:09 [facility]2025-07-25 15:20:37 Chief Complaint Patient presents with Establish Care She has seen Dr. Delaney and Dr. Lorenzo last year. Hospital F/U Was sent via life flight to [facility] on 02/07/25 for uncontrolled seizures. She is needing referrals to Neurology, Pain Management and Psychiatry. Della Dong MA [facility]2025-07-22 13:59:13* Consultation (Routine) - Pending Review Specialty Diagnoses / Procedures Referred By Contac t Referred To Contact Psychiatry Diagnoses Status epilepticus (CMS/HCC) (HCC) Sanjay Hutchins MD [address] [place] [address] Phone: tel: fax: Referral ID Status Reason Start Date Expiration Date Visits Requested Visits Authorized [id number] Pending Review Specialty Services Required 02/07/2025 02/02/2026 1 1 * Consultation (Routine) - Pending Review Specialty Diagnoses / Procedures Referred By Contac t Referred To Contact Psychiatry Diagnoses Status epilepticus (CMS/HCC) (HCC) Jony Ku MD [address] [place] [address] Phone: tel: fax:[phone] Referral ID Status Reason Start Date Expiration Date Visits Requested Visits Authorized [id number] Pending Review Specialty Services Required 02/07/2025 02/02/2026 1 1 * Consultation (Routine) - Pending Review Specialty Diagnoses / Procedures Referred By Contac t Referred To Contact Pain Medicine Diagnoses Status epilepticus (CMS/HCC) (HCC) Jony Ku MD [address] [place] [address] Phone: tel: fax: Referral ID Status Reason Start Date Expiration Date Visits Requested Visits Authorized [id number] Pending Review Specialty Services Required 02/07/2025 02/02/2026 1 1 * Home Health (Routine) - Pending Review Specialty Diagnoses / Procedures Referred By Contac t Referred To Contact Home Health Services Diagnoses Status epilepticus (CMS/HCC) (HCC) Jony Ku MD [address] [place] [address] Phone: tel: fax: Referral ID Status Reason Start Date Expiration Date Visits Requested Visits Authorized [id number] Pending Review Specialty Services Required 02/06/2025 04/07/[phone] [id number] 13:59:13* * Auth/Cert (Routine) Specialty Diagnoses / Procedures Referred By Contac t Referred To Contact Diagnoses Status epilepticus (CMS/HCC) (HCC) Procedures Pending PSC Last Siegel MD [address] [place] [address] Phone: tel: fax: [facility] ([facility]) [address] [place] [address] Phone: tel: Referral ID Status Reason Start Date Expiration Date Visits Re quested Visits Authorized [id number] 1 1 [id number] 13:59:13* Jono Burrell RN - 02/07/2025 11:50 AM CDT 02/07/25 1149 Discharge Planning Patient expects to be discharged to: Home w/ OP Expected Discharge Disposition Home Discharge Planning Comments Patient will discharge home w/ OP orders and no additional DME once medically cleared. Discharge Planning Status No Needs Identified Jono Burrell RN, BSN, [facility] security systems installer - Neuro Service Line * Avis Thompson PT - 02/07/2025 10:57 AM CDT Physical Therapy Treatment Session Note Patient Name: Heather Turner Today's Date: 02/07/2025 Preferred Language: [place] Assessment & Plan Assessment: PT Assessment: Pt improved, able to ambulate in bisaws w/ Rw w/ no LOB or buckling. At this time, rec d/c home w/ OP PT, pt has all necessary DME Medical Staff Made Aware: Yes Medical Staff Made Aware Details: Call light in reach, Nurse informed, Lap belt applied, Bed/chair alarm on, All lines/leads intact, Vital signs stable Plan: PT Plan: Skilled PT PT Frequency: 3-5 times per week until discharge PT Recommended Transfer Status: Stand by assist Subjective Pt lying in bed in NAD, agreeable to therapy Pain: 3/10 back ObjectiveGeneral Visit Information: PT Last Visit Date of Last PT Treatment: 02/07/25 CognitionOrientation Level: Oriented X4 TreatmentTherapeutic activity: Therapeutic Activity Therapeutic Activity Time Entry: 12 Therapeutic Activity 1: Pt sat herself EOB, per RN pt pulled off her EEG leads last night. Pt in good spirits, reports she feels better since receiving morphine. Pt then stood w/ RW and performed gait training in biswas. She tends to have decreased R stride length but no knee buckling or LOB. SHe returned to room and sat in chair, was set up w/ all needs met Bed Mobility: Bed Mobility 1:Level of Assistance 1: Independent Bed Mobility To/From: Supine to sit on EOB Transfers: Transfers 1: Technique 1: Via walking Level of Assistance 1: Setup/clean-up assistance Transfer To/From: Bed Gait training: Gait Training Time Entry: 13 Gait Training Activity 1:Distance (enter in feet): 140' Assistive Devices And Adaptive Equipments: Walker, front-wheeled Level of Assistance 1: Setup/clean-up assistance Gait Training Activity 1 Comment: slow, no LOB or buckling, decrease R stride length Outcome Measures: AM-PAC Basic Mobility:AM-PAC Basic Mobility Inpatient Turning in bed without bedrails: None Lying on back to sitting on edge of flat bed: None Bed to chair: A Little Standing up from chair: A Little Walk in room: A Little Climbing 3-5 stairs: A Little Mobility Inpatient Raw Score: 20 JH-HLM Goal: 6 Mobility: Highest Level of Mobility Performed (JH-HLM)-HLM Goal: 6 Modified [place] Patient Education: Education Documentation Mobility, taught by Avis Thompson PT at 02/06/2025 11:08 AM. Learner: Family, Patient Readiness: Acceptance Method: Explanation Response: Verbalizes Understanding Physical Therapy Plan of Care, taught by Avis Thompson PT at 511:08 AM. Learner: Family, Patient Readiness: Acceptance Method: Explanation Response: Verbalizes Understanding Education CommentsNo comments found. Goals:Encounter Goals Encounter Goals (Active) Patient will be spv w/ bed mobility Start: 02/06/25 Expected End: 02/27/25 Patient will be mod I w/ transfers Start: 02/06/25 Expected End: 02/27/25 Patient will be mod I w/ ambulation 300' w/ RW Start: 02/06/25 Expected End: 02/27/25 Treatment Note: If this is the last documented treatment, then it will signify discharge from acute care prior to discharge from the therapy service and will serve as the discharge summary. Avis Thompson PT * Jono Burrell RN - 02/06/2025 2:48 PM CDT CM asked whether patient will have adequate help at home after discharge: family is willing and has capacity to assist and care for patient; able to assist with f/u appointments if needed, including transportation. Patient's/Family's response: 1. Yes Marital Status: MPOA: Advance Care Planning Documents Document Type Status Effective Date Expiration Date Received On Description Advance Directives and Living Will Not Received Power of Compliance Clerk Not Received Emergency Contact Listed: Patient; If unable to, Extended Emergency Contact Information Primary Emergency Contact: Mony Johnson Mobile Relation: Spouse Equal Opportunity Counselor needed? No Lives with: with her spouse Pre-hospital function: independent Services: 0. No Home Health: 0. No DME use at home: none PCP/Contact Information: PCP Home/Address: verified in [employer] Health Insurance/Payer: Payor: CYNTHIA GARCIA EXCHANGE / Plan: [employer] CYNTHIA GARCIA EXCHANGE / Product Type: Health Exchange / Who is available to provide care if needed?/Caregiver: spouse 09/02 care/supervision at home if needed: 1. Yes Transportation arrangements: Family/friends drive to appointments/errands HD: 0. No CM will continue to follow and assist with care transition needs. 02/06/25 1439Readmission Questions Is this hospital visit a Readmission? No Discharge Planning Information Source Family;Self Permanent Residence Private residence Permanent Residence Type Mobile home Household Members Spouse/significant other Support Systems Spouse/significant other Arrived From Permanent Residence Barriers to Discharge Home None In the last 12 months, was there a time when you were not able to pay the mortgage or rent on time? N In the past 12 months, how many times have you moved where you were living? 0 At any time in the past 12 months, were you homeless or living in a fpc (including now)? N In the past 12 months has the electric, gas, oil, or water [employer] threatened to shut off services in your home? No Within the past 12 months, you worried that your food would run out before you got the money to buy more. Never true Within the past 12 months, the food you bought just didn't last and you didn't have money to get more. Never true Assistive Devices None Assistance Needed Independent at baseline Patient expects to be discharged to: Home w/ HH Expected Discharge Disposition HH Services Caregiver assessment needed? No Reason No caregiver assessment needed Patient Independent Anticipated Services at Discharge In home services Type of Home Care Services Home nursing visits;Home OT;Home PT In the past 12 months, has lack of transportation kept you from medical appointments or from getting medications? no In the past 12 months, has lack of transportation kept you from meetings, work, or from getting things needed for daily living? No Does the patient need discharge transport arranged? No Discharge Planning Comments CM/SW met with the patient/spouse at the bedside, Patient is independent at baseline, lives with spouse and is not currently using any DME. Her can provide transportation home at discharge. Discharge Planning Status Initial Assessment Complete CASE MANAGEMENT ROUTINE DISCHARGE PLAN NOTE Barriers to Discharge: CT head, EEG DISCHARGE PLAN A: Home w/ HH DISCHARGE PLAN B: IPR FOX: 2-3 days LOS: 1 Last Recorded Vitals: Blood pressure (!) 116/58, pulse 92, temperature 36.1 ?C (97 ?F), temperature source Axillary, resp. rate 22, height 1.727 m (5' 7.99"), weight 89 kg (196 lb 3.4 oz), SpO2 100%. Current Diet: Adult Diet Regular Jono Burrell RN, BSN, CCMRN [employer] Developer - Neuro Service Line * Millie Sultana OT - 02/06/2025 1:35 PM CDT Evaluation and Treatment Patient Name: Heather Turner Today's Date: 02/06/2025 Preferred Language: [place] Assessment & Plan Assessment: OT Assessment Results: Impaired ADL status, Impaired upper extremity strength, Impaired endurance, Impaired functional mobility, Impaired gross motor control, Impaired trunk control for functional activities, Other (Comment) OT Assessment: OT Consult for 55 Y/O F who presents to [facility] s/p seizures received. Chart reviewed; Of note, Pt had a recent admit on 02/10 s/p fall and head strike. In route she was given benzodiazepines and intubated in flight. In the ED patient was extubated and brought to the ICU. Pt is non-compliant with seizure medications. RN cleared Pt for OOB mobility for OT eval. Pt received supine in bed and agreeable. Pt on cEEG. 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 Decreased functional mobility, decreased functional transfers, and decreased activity tolerance. Pt appears upset about being in pain and care received however willing to participate in therapy. PLOF: Pt lives with in a mobile home with 4 steps to enter. Pt reported having w/c and walker however not using A.E. Pt reported not receiving any therapy services since surgery 2 years ago and that she taught herself to walk. Pt reported driving as well. CLOF: Pt is A& 0X4. Pt requires Mod A + 2 UE support for functional transfers and functional mobility and ADLs. Pt presents below functional baseline and demos deficits in strength, endurance, balance impacting ADL participation. Pt presents as HIGH Fall risk. Pt will cont. to benefit from OT services while in-house and in post-acute setting to address aforementioned deficits, to maximize functional independence, and to reduce risk of falls. Pt left supine in bed with all needs within reach. VSS. RN informed. Prognosis: Fair Evaluation/Treatment Tolerance: Patient limited by pain Strengths: Attitude of self, Support and attitude of living partners, Support of extended family/friends Medical Staff Made Aware: Yes Plan: Treatment Plan/Goals Established with Patient/Caregiver: Yes Treatment Interventions: ADL retraining, Endurance training, Functional transfer training, Patient/family training, Positioning, UE strengthening/ROM OT Plan: Skilled OT OT Frequency: 3-4 times per week until discharge OT Discharge Recommendations: senior living facility placement, Home Health OT (vs) OT Planned Treatments: Activities of Daily Living, Balance training, Caregiver training, Energy conservation training, Home program, Mobility training, Safety education, Therapeutic activities, Therapeutic exercises OT Duration: Discharge Subjective "No one listens to what I need, No one can help me or my pain" Current Problem: Per EMR: "Yue Romero) 55 y.o. female with PMH of HTN, epilepsy, CAD, HFrEF of 20-25% (01/10 echo), right SDH, neuropathy who presented on 02/05/2025 for seizures Previous notes mention not being compliant with her home Depakote. Recently here in 08/10/24 after she was in her wheel chair and fell down striking her head. She had CT revealing right sided prafalcine SDH with no progression. Patient able to recollect falling at home next to . She has been unable to afford her seizure medications. She denies any preceding events of fevers, chills, shortness of breath, and denies any general illness prior to seizure like events. She had general tonic clonic seizures at home and was life flighted to [facility]. In route she was given benzodiazapines and intubated in flight. In the ED patient was extubated and brought to the ICU Interval Events: 02/06 Extubated in ED and transferred to ICU with ongoing seizure like events. CT head and CTA H/N negative" Pain: 11/26 Post-Therapy Intervention Pain Assessment: Pain Assessment Pain Assessment: DVPRS (02/06/2025 1335) Pain Rating Scale (DVPRS): Interrupts some activities (02/06/2025 1335) Pain Type: Neuropathic pain (02/06/2025 1335) Pain Location: Generalized (02/06/2025 1335) Vital Signs: Patient Vitals for the past 24 hrs: BP MAP (mmHg) Pulse Resp SpO2 02/06/25 1412 -- -- 92 22 100 % 02/06/25 1402 -- -- 95 21 95 % 02/06/25 1400 (!) 116/58 81 94 19 96 % 02/06/25 1300 (!) 100/56 75 (!) 102 21 94 % 02/06/25 1200 154/74 (!) 107 (!) 119 (!) 27 92 % 02/06/25 1142 154/74 -- (!) 112 -- -- 02/06/25 1100 114/74 87 97 19 96 % 02/06/25 1000 (!) 103/58 75 91 20 93 % 02/06/25 0900 -- -- (!) 108 (!) 26 97 % 02/06/25 0829 128/76 96 (!) 105 (!) 28 99 % 02/06/25 0800 -- -- 87 21 100 % 02/06/25 0700 (!) 99/55 71 83 20 94 % 02/06/25 0600 (!) 92/58 70 82 19 93 % 02/06/25 0500 (!) 95/52 68 86 18 91 % 02/06/25 0400 110/68 84 90 20 96 % 02/06/25 0300 (!) 105/58 76 88 22 97 % 02/06/25 0200 103/67 80 90 (!) 27 99 % 02/06/25 0100 (!) 106/57 75 (!) 105 (!) 23 99 % 02/05/252321 (!) 182/73 -- -- 18 -- 02/05/252316 -- -- (!) 102 (!) 24 100 % 02/05/252315 -- -- -- -- 100 % 02/05/252314 121/67 89 (!) 102 15 100 % 02/05/252252 -- -- -- -- 100 % 02/05/252145 (!) 116/58 79 89 16 100 % 02/05/252129 (!) 86/54 65 90 20 100 % 02/05/252044 (!) 81/52 61 92 19 100 % 02/05/251924 (!) 171/80 (!) 115 (!) 104 (!) 35 100 % 02/05/251919 (!) 82/52 63 98 (!) 31 98 % 02/05/251914 -- -- -- -- 97 % 02/05/251911 (!) 77/49 (!) 59 100 19 95 % 02/05/251845 (!) 273/134 -- -- -- -- 02/05/251840 -- -- (!) 126 16 -- 07/20/25 1828 -- -- (!) 116 16 97 % No data found. Health Conditions 02/06/25 1335 Time Calculation Date of OT Evaluation 02/06/25 Start Time 1335 Stop Time 1350 Time Calculation (min) 15 min General Location Bedside Additional Individuals Present No Precautions UE Weight Bearing Status FWB LE Weight Bearing Status FWB Medical Precautions Fall, safety, standard Pain Assessment Pain Assessment DVPRS Pain Rating Scale (DVPRS) 5 Pain Type Neuropathic pain Pain Location Generalized Cognitive-Linguistic Functioning Overall Cognitive Status WFL Behavior/Cognition Alert;Cooperative;Requires redirection (Restlss) Orientation Level Oriented X4 Home Living Type of Home Mobile home Admitted From Home Lives With Spouse Home Adaptive Equipment Wheelchair-manual;Rolling walker (Pt reported not using any DME) Home Layout One level Home Access Stairs to enter with rails Entrance Stairs-Rails Left (going up) Entrance Stairs-Number of Steps 4 Bathroom Shower/Tub Walk-in shower Bathroom Toilet Standard Bathroom Equipment Shower chair with back Prior Function Level of [place] Household ambulation (Pt repoted not using any DME) Receives Help From Other (Comment) (Pt reported not having any help and that Pt has to care for Pt's ) ADL Assistance Independent Homemaking Assistance Independent Vocational Unemployed Prior Function Comments Per Pt report. No family at bedside to collaborate info. Social History and Responsibilities Social History Source Patient Prior Level of Function IND (Per Pt report) Current Level of Function Max A x2 Patient Responsibilities Health management;Meal prep;Personal ADL;Laundry;Community mobility;Home management;Driving IADL History Homemaking Responsibilities Yes Meal Prep Responsibility Primary Laundry Responsibility Primary Cleaning Responsibility Primary Bill Paying/Finance Responsibility Primary Shopping Responsibility Secondary Major Assembler Responsibility No Current License Yes Mode of Transportation Car Occupation Unemployed IADL Comments Pt reproted that she "is not supposed to drive, but I still do" ADL Grooming Assistance Supervision/touching assistance LE Dressing Activity Component(s) Socks LE Dressing Assistance Substantial/Max assistance Bed Mobility Bed Mobility Yes Bed Mobility 1 Level of Assistance 1 Partial/Mod assistance Bed Mobility To/From Supine to sit on EOB;Sitting EOB to supine Transfer 1 Trials/Comments 1 Unable to complete sit<>stand transfers secondary to increased pain. Pt will require 2 person Max A for OOB mobility secondary to BLE strength deficits. Activity Tolerance Endurance Tolerates less than 10 min exercise, no significant change in vital signs Sitting Balance Sits without upper extremity support up to 30 sec Early Mobility/Exercise Safety Screen Proceed with mobilization - No exclusion criteria met Vision - Basic Assessment Current Vision No visual deficits Vision - Complex Assessment Ocular Range of Motion WFL Sensation Light Touch RUE Intact;LUE Intact Deep Pressure RUE Intact;LUE Intact Stereognosis RUE Intact;LUE Intact Proprioception Proprioception RUE Intact;LUE Intact Perception Inattention/Neglect Appears intact Initiation Appears intact Motor Planning Appears intact Coordination Movements are Fluid and Coordinated Yes Finger to Nose Left intact;Right intact Hand Function Gross Grasp Functional Coordination Functional RUE Assessment RUE Assessment X (Grossly; 3/5) LUE Assessment LUE Assessment X (Grossly; 3/5) AM-PAC Daily Activity Inpatient Putting on and taking off regular lower body clothing 2 Bathing (including washing, rinsing, drying) 2 Toileting, which includes using toilet, bedpan or urinal 1 Putting on and taking off regular upper body clothing 3 Taking care of personal grooming such as brushing teeth 2 Eating Meals 2 AM-PAC Daily Activity Raw Score 12 OT Assessment OT Assessment Results Impaired ADL status;Impaired upper extremity strength;Impaired endurance;Impaired functional mobility;Impaired gross motor control;Impaired trunk control for functional activities;Other (Comment) OT Assessment OT Consult for 55 Y/O F who presents to [facility] s/p seizures received. Chart reviewed; Of note, Pt had a recent admit on 02/10 s/p fall and head strike. In route she was given benzodiazepines and intubated in flight. In the ED patient was extubated and brought to the ICU. Pt is non-compliant with seizure medications. RN cleared Pt for OOB mobility for OT eval. Pt received supine in bed and agreeable. Pt on cEEG. 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 Decreased functional mobility, decreased functional transfers, and decreased activity tolerance. Pt appears upset about being in pain and care received however willing to participate in therapy. PLOF: Pt lives with in a mobile home with 4 steps to enter. Pt reported having w/c and walker however not using A.E. Pt reported not receiving any therapy services since surgery 2 years ago and that she taught herself to walk. Pt reported driving as well. CLOF: Pt is A& 0X4. Pt requires Mod A + 2 UE support for functional transfers and functional mobility and ADLs. Pt presents below functional baseline and demos deficits in strength, endurance, balance impacting ADL participation. Pt presents as HIGH Fall risk. Pt will cont. to benefit from OT services while in-house and in post-acute setting to address aforementioned deficits, to maximize functional independence, and to reduce risk of falls. Pt left supine in bed with all needs within reach. VSS. RN informed. Prognosis Fair Evaluation/Treatment Tolerance Patient limited by pain Strengths Attitude of self;Support and attitude of living partners;Support of extended family/friends Medical Staff Made Aware Yes OT Plan Treatment Plan/Goals Established with Patient/Caregiver Yes Treatment Interventions ADL retraining;Endurance training;Functional transfer training;Patient/family training;Positioning;UE strengthening/ROM OT Plan Skilled OT OT Frequency 3-4 times per week until discharge OT Discharge Recommendations senior living facility placement;Home Health OT (vs) OT Planned Treatments Activities of Daily Living;Balance training;Caregiver training;Energy conservation training;Home program;Mobility training;Safety education;Therapeutic activities;Therapeutic exercises OT Duration Discharge OT Evaluation Time Entry OT Evaluation (Complex) Time Entry 15 Mobility Highest Level of Mobility Performed (JH-HLM) 3 Home Living: Home Living Type of Home: Mobile home Admitted From: Home Lives With: Spouse Home Adaptive Equipment: Wheelchair-manual, Rolling walker (Pt reported not using any DME) Home Layout: One level Home Access: Stairs to enter with rails Entrance Stairs-Rails: Left (going up) Entrance Stairs-Number of Steps: 4 Bathroom Shower/Tub: Walk-in shower Bathroom Toilet: Standard Bathroom Equipment: Shower chair with back Prior Level of Function: Prior Function Level of [place]: Household ambulation (Pt repoted not using any DME) Receives Help From: Other (Comment) (Pt reported not having any help and that Pt has to care for Pt's ) ADL Assistance: Independent Homemaking Assistance: Independent Vocational: Unemployed Prior Function Comments: Per Pt report. No family at bedside to collaborate info. Social History and Responsibilities Social History Source: Patient Prior Level of Function: IND (Per Pt report) Current Level of Function: Max A x2 Patient Responsibilities: Health management, Meal prep, Personal ADL, Laundry, Community mobility, Home management, Driving Prior IADL: IADL History Homemaking Responsibilities: Yes Meal Prep Responsibility: Primary Laundry Responsibility: Primary Cleaning Responsibility: Primary Bill Paying/Finance Responsibility: Primary Shopping Responsibility: Secondary Major Assembler Responsibility: No Current License: Yes Mode of Transportation: Car Occupation: Unemployed IADL Comments: Pt reproted that she "is not supposed to drive, but I still do" Objective General Visit Information: Location: Bedside Additional Individuals Present: No Precautions: UE Weight Bearing Status: FWB LE Weight Bearing Status: FWB Medical Precautions: Fall, safety, standard Cognition: Cognitive-Linguistic Functioning Overall Cognitive Status: Within Functional Limits Behavior/Cognition: Alert, Cooperative, Requires redirection (Restlss) Orientation Level: Oriented X4 Self Care: ADL Grooming Assistance: Supervision/touching assistance LE Dressing Activity Component(s): Socks LE Dressing Assistance: Substantial/Max assistance Patient Education: Education Documentation Other Occupational Therapy Topics, taught by Millie Sultana OT at 02/06/2025 2:59 PM. Learner: Patient Readiness: Acceptance Method: Explanation Response: Verbalizes Understanding, Needs Reinforcement Durable Medical Equipment, taught by Millie Sultana OT at 02/06/2025 2:59 PM. Learner: Patient Readiness: Acceptance Method: Explanation Response: Verbalizes Understanding, Needs Reinforcement Mobility Training, taught by Millie Sultana OT at 02/06/2025 2:59 PM. Learner: Patient Readiness: Acceptance Method: Explanation Response: Verbalizes Understanding, Needs Reinforcement ADL Training, taught by Millie Sultana OT at 02/06/2025 2:59 PM. Learner: Patient Readiness: Acceptance Method: Explanation Response: Verbalizes Understanding, Needs Reinforcement Occupational Therapy Plan of Care, taught by Millie Sultana OT at 02/06/2025 2:59 PM. Learner: Patient Readiness: Acceptance Method: Explanation Response: Verbalizes Understanding, Needs Reinforcement Education Comments No comments found. Goals: Encounter Goals Encounter Goals (Active) STG - Patient will participate in dynamic sanding FA to increase upright tolerance and core strength to promote safe and IND ADL participation; Mod + RW Start: 02/06/25 Expected End: 02/13/25 LTG - Patient will dress lower body with Min A + A.E. as indicated Start: 02/06/25 Expected End: 02/20/25 LTG - Patient will demonstrate use of compensatory intervention (build up mathematics faculty member) to feed self with Mod I Start: 02/06/25 Expected End: 02/13/25 LTG - Patient will utilize adaptive equipment (built up mathematics faculty member) to complete daily grooming activities at sink; IND Start: 02/06/25 Expected End: 02/20/25 LTG - Patient will ambulate household distance for ADL participation with Min A + RW Start: 02/06/25 Expected End: 02/20/25 LTG - Patient will demonstrate increased safety awareness as evident by requiring less than 2 redirection for correct body mechanics for OOB mobility. Start: 02/06/25 Expected End: 02/20/25 LTG - Patient will complete toilet transfers with Min A + A.E. Start: 02/06/25 Expected End: 02/20/25 STL; Pt will complete sit<>stand transfers in prep for ADLs with Min A x2 + A.E. to progress to functional mobility for ADL participation. Start: 02/06/25 Expected End: 02/13/25 Millie Sultana OTR * Libertad Kim CCC-[employer] EXCHANGE ARCHITECT - 02/06/2025 11:19 AM CDT Images from the original note were not included. [facility] [employer] EXCHANGE ARCHITECT CLINICAL SWALLOWING EVALUATION (CSE) Patient Name: Heather Turner Today's Date: 02/06/2025 Time In: 1119 Time Out: 1137 Room: [place] [id number] RECOMMENDATIONS: Diet Recommendations: Regular Solids & Thin Liquids Medications: As tolerated Swallow Precautions: Small bites/sips, Upright to 90 degrees Supervision Recommended: None Oral care: Regular toothbrush , As needed [employer] EXCHANGE ARCHITECT to sign off, re consult if indicated A CSE cannot rule out silent aspiration. If silent aspiration is suspected or any s/sx of airway invasion becomes evident please order instrumental assessment. CLINICAL SWALLOW EVALUATION SUMMARY: Pt seated in bed, asleep but arousable to verbal prompting. Pt with cEEG and agreeable to [employer] EXCHANGE ARCHITECT evaluation. 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 [employer] EXCHANGE ARCHITECT provided comfort and listening ear to Pt complaints. MI[employer] EXCHANGE ARCHITECT then assisted Pt end of ssion for ordering lunch meal per her request (on regular/thin diet and tolerated breakfast this morning, but upset that she was unable to order what she wanted). Pt p/w oral and suspected pharyngeal phases of swallow WFL. Oral Phase appeared timely with adequate bolus cohesion and AP bolus transit without concerning residue given trials of thin liquids/staw, pureed solids, and regular solids (aleida cracker). Pharyngeal Phase appeared timely per digital laryngeal palpation. No overt s/s of aspiration across consistencies as evidences by no coughing/throat clearing, no overt s/s of distress, and vocal quality dry/clear, subjectively. Note silent aspiration cannot be ruled out at bedside without objective instrumental evaluation. Re consult ST should there be concerns for aspiration, and discontinue diet. [employer] EXCHANGE ARCHITECT recommending Pt continue regular solids and thin liquids with general aspiration precautions as tolerated. [employer] EXCHANGE ARCHITECT to sign off as there are no further acute speech therapy services identified at this time. PROGNOSIS: Good PLAN: Frequency: None GENERAL INFORMATION: Reason for Consult: Pt was referred for a clinical swallow evaluation in the setting of status epilepticus Oxygenation: RA Behavior:Cooperative Level of Consciousness: Awake & alert Pain: General pain 2/2 diabetic neuropathy, chronic Diet Prior to this Evaluation: Level 0- Thin Liquids and Level 7- Regular diet Preferred Language: [place] ORAL MOTOR EXAM: Dentition: Adequate Face: Within Functional Limits Jaw: Within Functional Limits Lips: Within Functional Limits Tongue: Within Functional Limits Soft Palate: Within Functional Limits Larynx: Unable to assess Involuntary Muscular Movement: Absent CRANIAL NERVES FOR SPEECH, VOICE, AND SWALLOWING: Trigeminal (V) - Sensory: WFL Trigeminal (V) - Motor: WFL Facial (VII) - Sensory: WFL Facial (VII) - Motor: WFL SWALLOW ASSESSMENT: Consistencies Assessed Consistencies Assessed: Yes Swallowing Overview - Liquids 0 - Thin Liquid: WFL Swallowing Overview - Solids 4 - Pureed: WFL 7 - Regular: WFL Clinical Swallow Evaluation Patient Positioning: Upright, In bed Previous History of Dysphagia?: No Inability to Follow One Step Directions?: No Tracheostomy Present: No Inability to Manage Their Secretions?: No Incomplete Lingual ROM?: No Incomplete Facial Symmetry (Facial Droop)?: No Voice Change During Swallowing Trials?: No Abnormal/Weak Volitional Cough?: No Cough/Throat Clear w/ Trial Consistency?: No Dysphonia (Quality and/or Pitch Change)?: No Motor Speech Disorder (Dysarthria/Apraxia)?: No Apraxia of the Swallow Suspected?: No Delayed Swallow Suspected?: No Multiple Swallows Per Bolus Suspected?: No Tongue Pumping Suspected?: No OUTCOME MEASURES: International Dysphagia Diet Standardization Initiative - IDDSI Solids - 7 - Regular Liquids - 0 - Thin IDDSI Level - 8 GOALS: EDUCATION: Education Documentation No documentation found. Education Comments No comments found. If this is the last documented treatment, then it will signify discharge from acute care prior to discharge from the therapy service and will serve as the discharge summary. Therapy discharge recommendations are made by determining the patient's prior level of function, assessing current function level and establishing rehab potential. The overall discharge plan may be affected by input from Physicians, Care Coordination, medical condition/status, family support and insurance benefits. SILVIA GalarzaSLP * Avis Thompson, PT - 02/06/2025 11:10 AM CDT Physical Therapy Evaluation and Treatment Note Patient Name: Heather Turner Today's Date: 02/06/2025 Preferred Language: [place] Assessment & Plan Assessment: PT Assessment: Pt able to ambulate a few feet w/ RW, though limited by back pain and R LE weakness (baseline?). SHe is a high fall risk, currently requires assistance w/ all mobility. 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 PT to continue to follow. Pt would benefit from INTENSE INPATIENT POST ACUTE THERAPY Prognosis: Good Medical Staff Made Aware: Yes Medical Staff Made Aware Details: Call light in reach, Bed rails up, HOB raised >30 degrees, Family/visitor at bedside, All lines/leads intact, Vital signs stable, Nurse informed Plan: Treatment Plan/Goals Established with Patient/Caregiver: Yes Treatment/Interventions: Balance training, Bed mobility training, Functional activities, Gait training, Patient education, Therapeutic exercises, Transfer training PT Plan: Skilled PT PT Frequency: 3-5 times per week until discharge PT Recommended Transfer Status: (min A) Subjective Pt lying in bed in cEEG, at bedside Current Problem: Patient Heather Turner ( 1970, ) is a 54-year-old female with PMH of HTN, Epilepsy (non-compliant on Depakote), CAD, HFrEF 15-20% EF reported, bipolar disorder?, prior SDH who presents to the ED for evaluation of seizures, with concern for status epilepticus. Patient was not feeling her normal self today having "headache" and was being taken to ED when in car patient had x2 back to back seizures, lasting 30-45 seconds with urinary incontinence. EMS was called when patient had multiple [id number] seizures and then [facility] was calls. Per reports from the ED, [facility] said patient had 16 [id number] seizures that were tonic-clonic. Patient was given Versed 7.5mg and Ativan 2mg?. Patient was then intubated. Pain: 6/10 back Home Living: Type of Home: Mobile home Admitted From: Home Lives With: Spouse Home Adaptive Equipment: Rolling walker, Wheelchair-manual Prior Level of Function: Level of [place]: Household ambulation Receives Help From: Family Objective General Visit Information: Precautions: Cognition: Orientation Level: Oriented X4 General Assessments:Sensation Sensation Light Touch: RLE Impaired, LLE Intact Balance- SittingLevel of Assistance: Independent Balance- StandingStatic Standing-Balance Support: Right upper extremity supported, Left upper extremity supported Static Standing-Level of Assistance: Partial/Mod assistance Functional Assessments: Bed Mobility Bed Mobility 1: Level of Assistance 1: Partial/Mod assistance Bed Mobility To/From: Supine to sit on EOB, Sitting EOB to supine Transfers Transfers 1:Technique 1: Via walking Level of Assistance 1: Partial/Mod assistance Transfer To/From: Bed Assistive Devices And Adaptive Equipments: Walker, front-wheeled Gait Gait Training Activity 1: Distance (enter in feet): 10' Assistive Devices And Adaptive Equipments: Walker, front-wheeled Level of Assistance 1: Partial/Mod assistance (mod A) Gait Training Activity 1 Comment: episode of R leg "giving out" requiring more assistance from PT. Slow, unsteady Extremity Assessments:Right Lower Extremity RLE Assessment RLE Assessment: (ROM WFL, strength 3+/5) Left Lower Extremity LLE AssessmentLLE Assessment: Within Functional Limits Activity Tolerance: Cognition Orientation Level: Oriented X4 TreatmentTherapeutic activity: Therapeutic Activity Therapeutic Activity Time Entry: 10 Therapeutic Activity 1: Lines organized, VSS. Pt was assisted to sit EOB w/ mod A, able to dangle w/ spv. She reported low backpain and R LE weakness, worse than baseline. She sat a few minutes to acclimate to upright then stood w/ RW. SHe performed gait training a short distance, had episode of R knee "giving out" requiring mod A from PT to correct balance. She sat back EOB and was assisted back to supine. She was left w/ all needs met Outcome Measures: AM-PAC Basic Mobility:Turning in bed without bedrails: None Lying on back to sitting on edge of flat bed: A Lot Bed to chair: A Lot Standing up from chair: A Little Walk in room: A Lot Climbing 3-5 stairs: A Lot Mobility Inpatient Raw Score: 15 -HLM Goal: 4 Patient Education:Education Documentation Mobility, taught by Avis Thompson PT at 02/06/2025 11:08 AM. Learner: Family, Patient Readiness: Acceptance Method: Explanation Response: Verbalizes Understanding Physical Therapy Plan of Care, taught by Avis Thompson PT at 1:08 AM. Learner: Family, Patient Readiness: Acceptance Method: Explanation Response: Verbalizes Understanding Education CommentsNo comments found. Goal:Encounter Goals Encounter Goals (Active) Patient will be spv w/ bed mobility Start: 02/06/25 Expected End: 02/27/25 Patient will be spv w/ transfers Start: 02/06/25 Expected End: 02/27/25 Patient will be spv w/ ambulation 150' w/ RW Start: 02/06/25 Expected End: 02/27/25 Treatment Note: If this is the last documented treatment, then it will signify discharge from acute care prior to discharge from the therapy service and will serve as the discharge summary. Avis Thompson PT * Jony Ku MD - 02/06/2025 8:35 AM CDT General Neurology Follow-Up Note Name: Jeff Robles Date: 02/05/2025 Service: Neurology Inpatient Attending: Dr. Siegel Assessment: Patient Heather Turner ( 1970, ) is a 54-year-old female with PMH of HTN, Epilepsy (non-compliant on Depakote), CAD, HFrEF 15-20% EF reported, bipolar disorder?, prior SDH who presents to the ED for evaluation of seizures, with concern for status epilepticus. During rounds, Dr. Siegel inpatient attending highly suspicious if patient has correct PMHx of status epilepticus alongside with clinical presentation of reported x16 episodes of seizures prior to admission. Decision to hold off other AEDs, c/w home reg Depakote 1000 Q12H. Decision to discontinue prn ativan and not prescribe benzos d/t highly suspicious drug seeking behavior. ICU physician was at bedside earlier during supposed seizure episode, stated pt did not have a post-ictal episode, was conscious and alert and oriented. Consulted speech. Recommendations: FOOD SERVICE REPRESENTATIVE: #Status Epilepticus vs PNES - s/p Fosphenytoin Load with 1500meq Plan: - c/w AED Depakote 1000 q12h - CVEEG unremarkable - pending MRI brain seizure protocol. - CT HEAD w/o: * Stable right parafalcine hyperdensity consistent with parafalcine extra-axial mass, but may represent small amount of stable extra-axial blood. If further characterization is required, consider MRI brain - Correct electrolyte abnormalities, goal K >4, Mag >2 - Avoid medications that decrease seizure threshold. - Seizure precautions. CHF: 15-20%? - TTE. - Consider cards. RESP: Vent on Admission Day - Vent management per ICU - Patient extubated in the AM w/o issues. Currently on room air. Prophylaxis DVT: SCDs, SubQ heparin GI: N/A Bowel regimen: senna Diet: NPO Code Status: Full Code Dispo: pending Discussed with Attending Dr. Jocy Ku MD Resident Physician Psychiatry PGY-1 [facility] | [facility] Interim Events: NAEO. Objective: Physical Examination: Vitals: 02/06/25 0500 02/06/25 0600 02/06/25 0700 02/06/25 0829 BP: (!) 95/52 (!) 92/58 (!) 99/55 Pulse: 86 82 83 (!) 105 Resp: 18 19 20 (!) 28 Temp: SpO2: 91% 93% 94% 99% GENERAL: Alert and oriented x4 on room air, nonresposive HEENT: - Normocephalic and atraumatic, dry mm LUNGS - Intubated, symmetric chest rise CV - RRR on monitor ABDOMEN - Soft, nontender, nondistended NEURO: Mental Status: Awake and alert. Language: regular speech. follows commands Cranial Nerves: Pupils 3mm and equal/responsive, Midline gaze, +oculocephalic, +corneal reflex, +cough/gag reflex, no facial asymmetry Motor: WNL, strength 5/5 bilaterally. Tone: is normal and bulk is normal Sensation: in all 4 extremities to noxious stim Reflexes: RUE: Biceps 2+/4, Triceps 2+/4, Brachioradialis 2+/4 LUE: Biceps 2+/4, Triceps 2+/4, Brachioradialis 2+/4 RLE: Patellar 2+/4, Cross adductor +, Ankle 2+/4 LLE: Patellar 2+/4, Cross adductor +, Ankle 2+/4 Farrell: absent Babinski: absent Coordination: SHWETA Gait: SHWETA Imaging: CT head: PENDING CTA head/Neck: PENDING Diagnostic Data: Pertinent Labs : Labs in chart were reviewed. Imaging: CT BRAIN WO IV CONTRAST Result Date: 02/06/2025 EXAM: CT BRAIN WITHOUT CONTRAST DATE: 02/05/2025 23:46 INDICATION: status epilepticus, AMS, intubated COMPARISON: None. TECHNIQUE: Axial CT images of the brain were obtained. Sagittal and coronal reformats. IV contrast: None DLP: Refer to CT protocol form FINDINGS: There is no edema, hemorrhage, mass lesion or other acute intracranial abnormality. There is right parafalcine hyperdensity seen in the frontal region, it measures approximate 6 x 4 mm. It has well-defined borders. No hydrocephalus or mass effect. The skull base, calvarium, and included facial bones are unremarkable. Mucosal thickening noted along the right maxillary sinus and nasoethmoidal air cells, otherwise the paranasal sinuses are predominantly clear. Numerous chronically missing teeth. IMPRESSION: Right parafalcine hyperdensity seen in the right frontal region, may represent a small amount of extra axial blood versus a parafalcine extra-axial mass such as a meningioma. This report was dictated by a Superintendent Logging/Fellow/NOHELIA: Gus Anthony, RES 02/06/2025 0:59 This report was dictated by a Superintendent Logging/Fellow/Physician Personal Care Aid. I have personally reviewed the images as well as the interpretation and agree with the findings. Report finalized by: Rizwan Redding MD 02/06/2025 6:45 No MRI head results found for the past 14 days No EEG results found for the past 14 days Medications: Current Facility-Administered Medications Medication Dose Route Frequency Provider Last Rate Last Admin acetaminophen (Tylenol) tablet 650 mg 650 mg Oral q4h PRN Judy Resendiz MD 650 mg at 02/06/25 0055 divalproex (Depakote) EC tablet 1,000 mg 1,000 mg Oral q12h [facility] Judy Resendiz MD gabapentin (Neurontin) capsule 100 mg 100 mg Oral q12h [facility] Manuel Harding MD 100 mg at 02/06/25 0828 heparin injection 5,000 Units 5,000 Units Subcutaneous q8h Manuel Harding MD 5,000 Units at 02/06/25 0828 hydrALAZINE injection 10 mg 10 mg Intravenous q4h PRN Manuel Harding MD ipratropium-albuterol (Duo-Neb) 0.5-2.5 mg/3 mL nebulizer solution 3 mL 3 mL Nebulization q6h PRN Manuel Harding MD LORazepam (Ativan) injection 1 mg 1 mg Intravenous Daily PRN Bartolome Britt MD methocarbamol (Robaxin) tablet 500 mg 500 mg Oral q6h PRN Manuel Harding MD nystatin (Mycostatin) 889025 UNIT/GM powder Topical PRN Manuel Harding MD ondansetron (Zofran) injection 4 mg 4 mg Intravenous q8h PRN Manuel Harding MD 4 mg at 02/06/25 0056 oxyCODONE (Roxicodone) immediate release tablet 5 mg 5 mg Oral q6h PRN Manuel Harding MD 5 mg at 02/06/25 0835 polyethylene glycol (PEG) 3350 (Miralax) packet 17 g 17 g Oral BID Lorelei Ahmadi, RUBY senna-docusate (Grace-Colace) 8.6-50 mg per tablet 1 tablet 1 tablet Oral BID Manuel Harding MD 1 tablet at 02/06/25 0828 sennosides (Senokot) tablet 17.2 mg 2 tablet Oral Nightly PRN Judy Resendiz MD sodium chloride (NS) 0.9 % flush 10 mL 10 mL Intravenous q12h [facility] Judy Resendiz MD 10 mL at 02/06/25 0830 sodium chloride (NS) 0.9 % flush 10 mL 10 mL Intravenous PRN Judy Resendiz MD Cosigned by Last Siegel MD at 02/06/2025 10:29 PM CDT Associated attestation - Last Siegel MD - 02/06/2025 10:29 PM CDT I have seen and evaluated the patient on rounds today. Furthermore, I have reviewed the above note and agree with the history, exam, assessment and plan. See below for additions and/or exceptions and my findings. I have personally viewed the patient’s radiographic studies, laboratory tests, and medications. Today I spent greater than 38minutes of total cumulative time with time spenton [id number] examining the patient at the bedside in discussion regarding plan of care and addressing questions and concerns, reviewing the EMR and paper chart, reviewing diagnostic studies, laboratory values, and recommendations. Last Siegel [facility] Professor Jeffry Bolaños2025-07-22 13:59:13Pending Results Scheduled Orders Name Type Priority Associated Diagnoses Orde r Schedule UA with culture if indicated Lab STAT STAT (Lab) for 1 Occurrences starting 02/05/2025 until 02/05/2025 Drug Screen Urine (8 Drugs) Lab STAT STAT (Lab) for 1 Occurrences starting 02/05/2025 until 02/05/2025 POCT Glucose Point of Care Testing - Docked Device Routine Every 4 hours (Lab) for 3 Days starting 02/06/2025 until 02/09/2025, 8 completed Scheduled Referrals Name Type Priority Associated Diagnoses Orde r Schedule Ambulatory referral to Home Health Outpatient Referral Routine Status epilepticus (CMS/HCC) ([facility]) Expected: 02/06/2025 (Approximate), Expires: 02/06/2026 Ambulatory referral to Pain Medicine Outpatient Referral Routine Status epilepticus (CMS/HCC) ([facility]) Expected: 02/21/2025 (Approximate), Expires: 02/07/2026 Ambulatory referral to Psychiatry Outpatient Referral Routine Status epilepticus (CMS/HCC) ([facility]) Expected: 02/21/2025 (Approximate), Expires: 02/07/2026 Ambulatory referral to Psychiatry Outpatient Referral Routine Status epilepticus (CMS/HCC) ([facility]) Expected: 02/07/2025 (Approximate), Expires: 02/07/2026 Health Maintenance Due Date Last Done Comments CT Colonography 1972 Colonoscopy 1972 Colorectal Cancer Screening 1972 FIT-DNA 1972 FIT 1972 FOBT 1972 Sigmoidoscopy 1972 Annual Physical 01/14/1975 DTaP/Tdap/Td Vaccines (1 - Tdap) 01/14/1991 Hepatitis B Vaccines (1 of 3 - 19+ 3-dose series) 01/14/1991 Pap Smear 01/14/1993 Cervical Cancer Screening 01/14/2002 HPV/Cotest 01/14/2002 Mammogram 2012 Pneumococcal Vaccine: 50+ Ye ars (1 of 1 - PCV) 01/14/2022 Zoster Vaccines (1 of 2) 01/14/2022 Influenza Vaccine (#1) 2025 Respiratory Syncytial Virus (RSV) Adult Series (1 - 1-dose 75+ series) 01/14/2047 HIB Vaccines Aged Out No longer eligi [...] on patient's age to complete this topic Pneumococcal Vaccine: Pediat rics (0 to 5 Years) and At-Risk Patients (6 to 64 Years) Aged Out No longer eligible b ased on patient's age to complete this topic Rotavirus Vaccines Aged Out No longer eligible based on patient's age to complete this topic [facility] 13:59:13 Diagnosis Status epilepticus (CMS/HCC) (HCC) - Primary Epileptic grand mal status Status epilepticus (CMS/HCC) (HCC) Epileptic grand mal status [facility] [id number] 13:59:13 [facility] [id number] 13:49:42 Pt is discharging home. Pt has verbalized desire to be discharged and has verbalized understanding of discharge, medication and follow up instructions. PT IV removed fully intact with no complicaitons. Pt calm & cooperative. Pt states she has all of her belongings. [facility] [id number] 13:42:00 Images from the original note were not included. [id number] Methocarbamol WHY is this medicine prescribed? Methocarbamol is used with rest, physical therapy, and other measures to relax muscles and relieve pain and discomfort caused by strains, sprains, and other muscle injuries. Methocarbamol is in a class of medications called muscle relaxants. It works by slowing activity in the nervous system to allow the body to relax HOW should this medicine be used? Methocarbamol comes as a tablet to take by mouth. It usually is taken four times a day at first, then it may be changed to three to six times a day. Follow the directions on your prescription label carefully, and ask your doctor or pharmacist to explain any part you do not understand. Take methocarbamol exactly as directed. Do not take more or less of it or take it more often than prescribed by your doctor. Are there OTHER USES for this medicine? This medication may be prescribed for other uses. Ask your doctor or pharmacist for more information. What SPECIAL PRECAUTIONS should I follow? Before taking methocarbamol, ? tell your doctor and pharmacist if you are allergic to methocarbamol, any other medications or any of the ingredients in methocarbamol tablets. Ask your doctor or pharmacist for a list of the ingredients. ? tell your doctor and pharmacist what prescription and nonprescription medications, vitamins, nutritional supplements, and herbal products you are taking or plan to take while taking methocarbamol. Your doctor may need to change the doses of your medications or monitor you carefully for side effects. ? tell your doctor if you are , plan to become , or are breast-feeding. If you become while taking methocarbamol, call your doctor. ? talk to your doctor about the risks and benefits of taking methocarbamol if you are 65 years of age or older. Older adults should not usually take methocarbamol because it is not as safe or as effective as other medications that can be used to treat the same condition. ? you should know that this medication may make you drowsy. Do not drive a car or operate machinery until you know how methocarbamol affects you. ? talk to your doctor about the safe use of alcohol during your treatment with this medication. Alcohol can make the side effects of methocarbamol worse. What SPECIAL DIETARY instructions should I follow? Unless your doctor tells you otherwise, continue your normal diet. What should I do IF I FORGET to take a dose? Take the missed dose as soon as you remember it. However, if it is almost time for the next dose, skip the missed dose and continue your regular dosing schedule. Do not take a double dose to make up for a missed one. What SIDE EFFECTS can this medicine cause? If you experience either of the following symptoms, call your doctor immediately: ? rash ? itching Methocarbamol may cause other side effects. Call your doctor if you have any unusual problems while you are taking this medication. If you experience a serious side effect, you or your doctor may send a report to the Food and Drug Administration's (FDA) MedWatch Adverse Event Reporting program online (https://www.fda.gov/Safety/MedWatch) or by phone ( ). What should I know about STORAGE and DISPOSAL of this medication? Keep this medication in the container it came in, tightly closed, and out of reach of children. Store it at room temperature and away from excess heat and moisture (not in the bathroom). Dispose of unneeded medications in a way so that pets, children, and other people cannot take them. Do not flush this medication down the toilet. Use a medicine take-back program. Talk to your pharmacist about take-back programs in your community. Visit the FDA's Safe Disposal of Medicines website https://goo.gl/c4Rm4p for more information. Keep all medication out of sight and reach of children as many containers are not child-resistant. Always lock safety caps. Place the medication in a safe location - one that is up and away and out of their sight and reach. https://www.upandaway.org What should I do in case of OVERDOSE? In case of overdose, call the poison control helpline at . Information is also available online at https://www.poisonhelp.org/help. If the victim has collapsed, had a seizure, has trouble breathing, or can't be awakened, immediately call emergency services at 246. What OTHER INFORMATION should I know? Keep all appointments with your doctor. Do not let anyone else take your medication. Ask your pharmacist any questions you have about refilling your prescription. Keep a written list of all of the prescription and nonprescription (uael-zom-yqtwpwt) medicines, vitamins, minerals, and dietary supplements you are taking. Bring this list with you each time you visit a doctor or if you are admitted to the hospital. You should carry the list with you in case of emergencies. Brand Name(s): ? Robaxin? also available generically This report on medications is for your information only, and is not considered individual patient advice. Because of the changing nature of drug information, please consult your physician or pharmacist about specific clinical use. The [place] [employer] represents that the information provided hereunder was formulated with a reasonable standard of care, and in conformity with professional standards in the field. The [place] [employer] makes no representations or warranties, express or implied, including, but not limited to, any implied warranty of merchantability and/or fitness for a particular purpose, with respect to such information and specifically disclaims all such warranties. Users are advised that decisions regarding drug therapy are complex medical decisions requiring the independent, informed decision of an appropriate health lpn care manager, and the information is provided for informational purposes only. The entire monograph for a drug should be reviewed for a thorough understanding of the drug's actions, uses and side effects. The [place] [employer] does not endorse or recommend the use of any drug. The information is not a substitute for medical care. AHFS? Patient Medication Information?. ? Copyright, 2023. The [place] [employer]?, [address], [address], [place], [place]. All Rights Reserved. Duplication for commercial use must be authorized by [facility]. Selected Revisions: March 03, 2017. AHFS? Patient Medication Information?. ? Copyright, 2024 Jeffry [id number] 13:41:59 Images from the original note were not included. [id number] Valproic Acid IMPORTANT WARNING: Valproic acid may cause serious or life-threatening damage to the liver that is most likely to occur within the first 6 months of therapy. The risk of developing liver damage is greater in children who are younger than 2 years of age and are also taking more than one medication to prevent seizures, have certain inherited diseases that may prevent the body from changing food to energy normally, or any condition that affects the ability to think, learn, and understand. Tell your doctor if you have a certain inherited condition that affects the brain, muscles, nerves, and liver (Alpers Huttenlocher Syndrome), urea cycle disorder (an inherited condition that affects the ability to metabolize protein), or liver disease. Your doctor will probably tell you not to take valproic acid. If you notice that your seizures are more severe or happen more often or if you experience any of the following symptoms, call your doctor immediately: excessive tiredness, lack of energy, weakness, pain on the right side of your stomach, loss of appetite, nausea, vomiting,, dark urine, yellowing of your skin or the whites of your eyes, or swelling of the face. Valproic acid can cause serious defects (physical problems that are present at ), especially affecting the brain and spinal cord and can also cause lower intelligence and problems with movement and coordination, learning, communication, emotions, and behavior in babies exposed to valproic acid before . Tell your doctor if you are or plan to become . Women who are or who are able to become and are not using effective control must not take valproic acid to prevent migraine headaches. Women who are should only take valproic acid to treat seizures or bipolar disorder (manic-depressive disorder; a disease that causes episodes of depression, episodes of rm, and other abnormal moods) if other medications have not successfully controlled their symptoms or cannot be used. Talk to your doctor about the risks of using valproic acid during . If you are a woman of childbearing age, including girls from the start of puberty, talk to your doctor about using other possible treatments instead of valproic acid. If the decision is made to use valproic acid, you must use effective control during your treatment. Talk to your doctor about control methods that will work for you. If you become while taking valproic acid, call your doctor immediately. Valproic acid can harm the fetus. Valproic acid may cause serious or life-threatening damage to the pancreas. This may occur at any time during your treatment. If you experience any of the following symptoms, call your doctor immediately: ongoing pain that begins in the stomach area but may spread to the back nausea, vomiting, or loss of appetite. Keep all appointments with your doctor and the laboratory. Your doctor will order certain lab tests to check your response to valproic acid. Talk to your doctor about the risks of taking valproic acid or of giving valproic acid to your child. Your doctor or pharmacist will give you the [place] attorney's patient information sheet (Medication Guide) when you begin treatment with valproic acid and each time you refill your prescription. Read the information carefully and ask your doctor or pharmacist if you have any questions. You can also visit the Food and Drug Administration (FDA) website (https://www.fda.gov/Drugs/DrugSafety/bll435611.htm) or the [place] attorney's website to obtain the Medication Guide. WHY is this medicine prescribed? Valproic acid is used alone or with other medications to treat certain types of seizures. Valproic acid is also used to treat rm (episodes of frenzied, abnormally excited mood) in people with bipolar disorder (manic-depressive disorder; a disease that causes episodes of depression, episodes of rm, and other abnormal moods). It is also used to prevent migraine headaches but not to relieve headaches that have already begun. Valproic acid is in a class of medications called anticonvulsants. It works by increasing the amount of a certain natural substance in the brain. HOW should this medicine be used? Valproic acid comes as a capsule, an extended-release (long-acting) tablet, a delayed-release (releases the medication in the intestine to prevent damage to the stomach) tablet, a sprinkle capsule (capsule that contains small beads of medication that can be sprinkled on food), and a syrup (liquid) to take by mouth. The syrup, capsules, delayed-release tablets, and sprinkle capsules are usually taken two or more times daily. The extended-release tablets are usually taken once a day. Take valproic acid at around the same time(s) every day. Take valproic acid with food to help prevent the medication from upsetting your stomach. Follow the directions on your prescription label carefully, and ask your doctor or pharmacist to explain any part you do not understand. Take valproic acid exactly as directed. Do not take more or less of it or take it more often than prescribed by your doctor. Swallow the regular capsules, delayed-release capsule, and extended-release tablets whole; do not split, chew, or crush them. You can swallow the sprinkle capsules whole, or you can open the capsules and sprinkle the beads they contain on a teaspoonful of soft food, such as applesauce or pudding. Swallow the mixture of food and medication beads right after you prepare it. Be careful not to chew the beads. Do not store unused mixtures of food and medication. Do not mix the syrup into any carbonated drink. Divalproex sodium, valproate sodium, and valproic acid products are absorbed by the body in different ways and cannot be substituted for one another. If you need to switch from one product to another, your doctor may need to adjust your dose. Each time you receive your medication, check to be sure that you have received the product that was prescribed for you. Ask your pharmacist if you are not sure that you received the right medication. Your doctor may start you on a low dose of valproic acid and gradually increase your dose. Valproic acid may help to control your condition but will not cure it. Continue to take valproic acid even if you feel well. Do not stop taking valproic acid without talking to your doctor, even if you experience side effects such as unusual changes in behavior or mood or if you find out that you are . If you suddenly stop taking valproic acid, you may experience a severe, long-lasting and possibly life-threatening seizure. Your doctor will probably decrease your dose gradually. Are there OTHER USES for this medicine? Valproic acid is also sometimes used to treat outbursts of aggression in children with attention deficit hyperactivity disorder (ADHD; more difficulty focusing or remaining still or quiet than other people who are the same age). Talk to your doctor about the possible risks of using this medication for your condition. This medication is sometimes prescribed for other uses. Ask your doctor or pharmacist for more information. What SPECIAL PRECAUTIONS should I follow? Before taking valproic acid, ? tell your doctor and pharmacist if you are allergic to valproic acid, any other medications, or any of the ingredients in the type of valproic acid that has been prescribed for you. Ask your pharmacist for a list of the ingredients. ? tell your doctor and pharmacist what prescription and nonprescription medications, vitamins, nutritional supplements, and herbal products you are taking or plan to take while taking valproic acid. Your doctor may need to change the doses of your medications or monitor you carefully for side effects. ? the following nonprescription or herbal products may interact with valproic acid: aspirin; cannabidiol. Be sure to let your doctor and pharmacist know that you are taking these medications before you start taking valproic acid. Do not start any of these medications while taking valproic acid without discussing with your healthcare provider. ? tell your doctor if you have or have ever had episodes of confusion and loss of ability to think and understand, especially during or childbirth; coma (loss of consciousness for a period of time); difficulty coordinating your movements; human immunodeficiency virus (HIV); or cytomegalovirus (CMV; a virus that can cause symptoms in people who have weak immune systems). ? tell your doctor if you are . ? if you are having surgery, including dental surgery, tell the doctor or dentist that you are taking valproic acid. ? you should know that valproic acid may make you drowsy. Do not drive a car or operate machinery until you know how this medication affects you. ? remember that alcohol can add to the drowsiness caused by this medication. ? you should know that valproic acid can cause extreme drowsiness that may cause you to eat or drink less than you normally would, especially if you are elderly. Tell your doctor if you are not able to eat or drink as you normally do. ? you should know that your mental health may change in unexpected ways and you may become suicidal (thinking about harming or killing yourself or planning or trying to do so) while you are taking valproic acid for the treatment of epilepsy, mental illness, or other conditions. A small number of adults and children 5 years of age and older (about 1 in 500 people) who took anticonvulsants such as valproic acid to treat various conditions during clinical studies became suicidal during their treatment. Some of these people developed suicidal thoughts and behavior as early as one week after they started taking the medication. There is a risk that you may experience changes in your mental health if you take an anticonvulsant medication such as valproic acid, but there may also be a risk that you will experience changes in your mental health if your condition is not treated. You and your doctor will decide whether the risks of taking an anticonvulsant medication are greater than the risks of not taking the medication. You, your family, or your caregiver should call your doctor right away if you experience any of the following symptoms: panic attacks; agitation or restlessness; new or worsening irritability, anxiety, or depression; acting on dangerous impulses; difficulty falling or staying asleep; aggressive, angry, or violent behavior; rm (frenzied, abnormally excited mood); talking or thinking about wanting to hurt yourself or end your life; withdrawing from friends and family; preoccupation with and dying; giving away prized possessions; or any other unusual changes in behavior or mood. Be sure that your family or caregiver knows which symptoms may be serious so they can call the doctor if you are unable to seek treatment on your own. What SPECIAL DIETARY instructions should I follow? Unless your doctor tells you otherwise, continue your normal diet. What should I do IF I FORGET to take a dose? Take the missed dose as soon as you remember it. However, if it is almost time for your next dose, skip the missed dose and continue your regular dosing schedule. Do not take a double dose to make up for a missed one. What SIDE EFFECTS can this medicine cause? Some side effects can be serious. If you experience any of the following symptoms or those listed in the IMPORTANT WARNING or SPECIAL PRECAUTIONS section, call your doctor immediately: ? unusual bruising or bleeding ? tiny purple or red spots on the skin ? fever ? rash ? bruising ? hives ? difficulty breathing or swallowing ? swollen glands ? swelling of face, eyes, lips, tongue, or throat ? peeling or blistering skin ? confusion ? tiredness ? vomiting ? drop in body temperature ? weakness or swelling in the joints Valproic acid may cause other side effects. Call your doctor if you have any unusual problems while taking this medication. If you experience a serious side effect, you or your doctor may send a report to the Food and Drug Administration's (FDA) MedWatch Adverse Event Reporting program online (https://www.fda.gov/Safety/MedWatch) or by phone ( ). What should I know about STORAGE and DISPOSAL of this medication? Keep this medication in the container it came in, tightly closed, and out of reach of children. Store it at room temperature, away from excess heat and moisture (not in the bathroom). Dispose of unneeded medications in a way so that pets, children, and other people cannot take them. Do not flush this medication down the toilet. Use a medicine take-back program. Talk to your pharmacist about take-back programs in your community. Visit the FDA's Safe Disposal of Medicines website https://goo.gl/c4Rm4p for more information. Keep all medication out of sight and reach of children as many containers are not child-resistant. Always lock safety caps. Place the medication in a safe location - one that is up and away and out of their sight and reach. https://www.upandaway.org What should I do in case of OVERDOSE? In case of overdose, call the poison control helpline at . Information is also available online at https://www.poisonhelp.org/help. If the victim has collapsed, had a seizure, has trouble breathing, or can't be awakened, immediately call emergency services at 911. Symptoms of overdose may include the following: ? sleepiness ? irregular heartbeat ? coma (loss of consciousness for a period of time) What OTHER INFORMATION should I know? If you are taking the sprinkle capsules, you may notice the medication beads in your stool. This is normal and does not mean that you did not get the full dose of medication. If you have diabetes and your doctor has told you to test your urine for ketones, tell the doctor that you are taking valproic acid. Valproic acid can cause false results on urine tests for ketones. Before having any laboratory test, tell your doctor and the laboratory personnel that you are taking valproic acid. Do not let anyone else take your medication. Ask your pharmacist any questions you have about refilling your prescription. Keep a written list of all of the prescription and nonprescription (zdjv-nyq-dvnhuza) medicines, vitamins, minerals, and dietary supplements you are taking. Bring this list with you each time you visit a doctor or if you are admitted to the hospital. You should carry the list with you in case of emergencies. Brand Name(s): ? Depakene? ? Depakote? ? Depakote? ER ? Depakote? Sprinkle also available generically Divalproex sodium, Valproate sodium This report on medications is for your information only, and is not considered individual patient advice. Because of the changing nature of drug information, please consult your physician or pharmacist about specific clinical use. The [place] [employer] represents that the information provided hereunder was formulated with a reasonable standard of care, and in conformity with professional standards in the field. The [place] [employer] makes no representations or warranties, express or implied, including, but not limited to, any implied warranty of merchantability and/or fitness for a particular purpose, with respect to such information and specifically disclaims all such warranties. Users are advised that decisions regarding drug therapy are complex medical decisions requiring the independent, informed decision of an appropriate health lpn care manager, and the information is provided for informational purposes only. The entire monograph for a drug should be reviewed for a thorough understanding of the drug's actions, uses and side effects. The [place] [employer] does not endorse or recommend the use of any drug. The information is not a substitute for medical care. AHFS? Patient Medication Information?. ? Copyright, 2023. The [place] [employer]?, [address], [address], [place], [place]. All Rights Reserved. Duplication for commercial use must be authorized by [facility]. Selected Revisions: November 01, 2018. AHFS? Patient Medication Information?. ? Copyright2024 [facility]2025-07-22 07:45:07 The patient is Moderately Stable - Low risk of patient condition declining or worsening The patient's goals for the shift include get better The clinical goals for the shift include monitor ceeg [facility]2025-07-22 01:28:38 Problem: Discharge Planning Goal: Discharge to home or other facility with appropriate resources Outcome: Progressing Problem: Chronic Conditions and Co-morbidities Goal: Patient's chronic conditions and co-morbidity symptoms are monitored and maintained or improved Outcome: Progressing Problem: Pain - Adult Goal: Verbalizes/displays adequate comfort level or baseline comfort level Outcome: Not Progressing Problem: Safety - Adult Goal: Free from fall injury Outcome: Not Progressing [facility]2025-07-21 10:50:35 [id number] 10:50:35 [id number] 07:24:26 The patient is Moderately Unstable - Medium risk of patient condition declining or worsening The patient's goals for the shift include getting better and reducing pain. The clinical goals for the shift include monitor continuous eeg and neuro exam. Problem: Pain - Adult Goal: Verbalizes/displays adequate comfort level or baseline comfort level Outcome: Ongoing Problem: Safety - Adult Goal: Free from fall injury Outcome: Ongoing Problem: Discharge Planning Goal: Discharge to home or other facility with appropriate resources Outcome: Ongoing Problem: Chronic Conditions and Co-morbidities Goal: Patient's chronic conditions and co-morbidity symptoms are monitored and maintained or improved Outcome: Ongoing [facility]2025-07-20 18:33:00 History of Present Illness: Chief Complaint: Patient presents with • Seizures HPI 55-year-old female with history of seizures, hypertension, allergy to Keppra, who presents by [facility] with status epilepticus. According to [facility], has been noted patient had 2 grand mal seizures [id number] described as lasting for 30 to 45 seconds each, with a brief postictal phase and returned back to baseline. EMS called and patient was again witnessed to have multiple awxa-tg-eecq seizures. [facility] then witnessed the patient to have at least 12 seizures that were tonic-clonic in nature. Patient was given Versed 7.5 mg and Ativan 2 mg. She is subsequently intubated for airway protection. Patient History No past medical history on file. No past surgical history on file. No family history on file. Social History: Tobacco Use • Smoking status: Not on file • Smokeless tobacco: Not on file Substance Use Topics • Alcohol use: Not on file • Drug use: Not on file Review of Systems: Review of Systems Physical Exam: Vitals and nursing note reviewed. Constitutional: Appearance: She is well-developed. Comments: Intubated and sedate HENT: Head: Normocephalic and atraumatic. Eyes: Conjunctiva/sclera: Conjunctivae normal. Pupils: Pupils are equal, round, and reactive to light. Cardiovascular: Rate and Rhythm: Normal rate and regular rhythm. Heart sounds: No murmur heard. Pulmonary: Breath sounds: Normal breath sounds. Comments: Intubated with a 7.5 ET tube. Bilateral breath sounds present. Abdominal: Palpations: Abdomen is soft. Tenderness: There is no abdominal tenderness. Musculoskeletal: General: No swelling. Cervical back: Neck supple. Skin: General: Skin is warm and dry. Capillary Refill: Capillary refill takes less than 2 seconds. Triage Vitals: BP: (!) 273/134, Heart Rate: (!) 116, Temp: 36.7 ?C (98 ?F), Resp: 16, SpO2: 97 %, Height: 173 cm (5' 8.11"), Weight: 89 kg (196 lb 3.4 oz) Last Recorded Vitals: BP: 154/74, Heart Rate: (!) 119, Temp: 36.1 ?C (97 ?F), Resp: (!) 27, SpO2: 92 %, Height: 172.7 cm (5' 8"), Weight: 89 kg (196 lb 3.4 oz) Procedures Performed: Procedures ED Course : 55-year-old female with history of seizures, hypertension, allergy to Keppra, who presents by [facility] with status epilepticus. Exam notable for intubated, sedated after receiving Versed and fentanyl bolus by [facility], pupils equal round and reactive. Patient was started on propofol and fentanyl however subsequently became hypotensive with maps in the 60s. She was switched to Versed and fentanyl. She has noted to have some purposeful movements in withdrawing to pain. She was given a fosphenytoin loading dose in the setting of a Keppra allergy. Labs including BMP, LFTs, lactic acid, CBC, ethanol, hCG, TSH, without any severe derangements. Chest x-ray shows pulmonary opacities likely atelectasis, ET tube is high. It was adjusted and repeat chest x-ray shows ET tube in appropriate positioning. CT brain notable for right parafalcine hyperdensity which may be a small amount of extra-axial blood versus extra-axial mass such as meningioma. CTA shows no LVO. Neurology was consulted due to concern for status epilepticus: Met the patient for further care. ED Course: as of 02/06/25 1248 Sun Feb 05, 20251916 Patient became hypotensive on propofol with maps in the 60s. Will switch to Versed. [SM] 193 Initial chest x-ray shows ET tube above the clavicles. It was advanced 2 cm. Repeat chest x-ray shows it is in appropriate positioning. [SM] ED Course: User Index [SM] Kassi Terry Sanchez DO Diagnoses as of 02/06/25 1248 Status epilepticus (CMS/HCC) ([facility]) Disposition: Admit/Observation Medical Decision Making Amount and/or Complexity of Data Reviewed Labs: ordered. Radiology: ordered. ECG/medicine tests: ordered. Risk Prescription drug management. MEDICAL DECISION MAKING Complexity of Problems Addressed High: I am concerned about a severe complexity problem which was evidenced by the differential, and associated workup to rule out the severe problem: Status epilepticus, which is a new problem for this patient as evidenced by HPI. Complexity of Data Review Category 1: (# Of Data Points) Ordered the following tests: CBC, BMP, TSH and (Alternate Historian) For improved patient care, I received an additional history from [facility] who states HPI above. Category 2: (Image/Tracing Interpretation): I contemporaneously during the patient encounter interpreted the following: Chest x-ray of the patient and these are my findings: ET tube is above the clavicle and high, no pneumothorax or focal consolidation Category 3: (Leasing Agent) I consulted and spoke with neurology about the patient and they stated will admit. Risk of Management (Admission) Patient to be admitted to the hospital. and (Parenteral Controlled Substance) The patient was given parenteral controlled substances during their stay, IV/IM fentanyl. Scoring Tools Kassi Stewart Meng, DO Resident 02/06/25 1248 Cosigned by Promise Alfaro MD at 02/06/2025 10:35 PM CDT Associated attestation - Promise Alfaro MD - 02/06/2025 10:35 PM CDT Teaching Attending Attestation: The patient was seen and examined by me in the presence of, or jointly with, the resident, and I agree with the History/Exam/Medical Decision Making documented unless further documented below. Additionally, I was directly involved in the management of the patient. Impression: 1. Status epilepticus (CMS/HCC) (HCC) Promise Alfaro MD [id number] 16:51:00 [facility] ([facility]) Hospitalist Discharge Summary REPORT#:[id number] REPORT STATUS: Signed REPORT INITIALIZATION DATE:10/27/24 TIME:1650 PATIENT: HEATHER TURNER UNIT #: [id number] ROOM/BED: [place] [address] : 72 AGE: 54 SEX: F ATTEND: Segundo Toledo MD ADM AUTHOR: Segundo Toledo MD REPT SERVICE DT/TIME: 10/27/241650 * ALL edits or amendments must be made on the electronic/computer document * General Information Discharge date: 10/24/24 Discharge diagnosis: 54 y/o F with PMH of HTN, T2DM, AK 20 yrs ago, no stent, CVA with subsequent seizure, and bipolar disorder admitted for the following; 1. Status epilepticus Downgraded to IMU Continue Ativan as needed Patient is on multiple seizure medications ,Celebyx, Dilantin and Depakote Neurology is following input appreciated MRI of the brain reported Management of seizure per neurologist. Hot Roll Inspector also consulted appreciate input EEG is done [...] deficit resume home med 7.. hx of AK, no stents resume home med 8. Hyperlipidemia [...] discussed with nursing staff. Case discussed at [facility] Hospital course: Left AMA Objective VS/I O Last Documented: Result Date Time Pulse Ox 95 10/24 1816 B/P 124/77 10/24 1816 B/P Mean 97 10/24 1816 Pulse 94 10/24 1816 Resp 19 10/24 1816 Temp 98.1 10/24 1621 O2 Delivery Nasal cannula 10/24 0800 O2 Flow Rate 2 10/24 0800 FiO2 21 10/24 0724 Head/Eyes: atraumatic, clear cornea, EOMI, PERRL Neck: full range of motion, non-tender, normal thyroid Cardiovascular: normal capillary refill, normal heart sounds, regular rate rhythm Respiratory: aerating well, clear to auscultation, symmetric expansion Abdomen: non-tender, normal bowel sounds, soft Neuro/FOOD SERVICE REPRESENTATIVE: alert Skin: dry, intact, normal color Psychiatry: anxious Discharge Instructions PCP Discharge to: AMA Additional Discharge Routines: PCP Follow-Up, Leasing Agent Follow-Up Discharge management: greater than 30 mins at 1652 RPT #: [id number] END OF REPORT [id number] 13:52:00 [facility] ([facility]) Hospitalist Progress Note REPORT#:[id number] REPORT STATUS: Signed REPORT INITIALIZATION DATE:10/24/24 TIME:135 PATIENT: HEATHER TURNER UNIT #: [id number] ROOM/BED: [place] [address] : 72 AGE: 54 SEX: F ATTEND: Segundo Toledo MD ADM AUTHOR: Ignacio Langston MD REPT SERVICE DT/TIME: 10/24/24 1352 * ALL edits or amendments must be made on the electronic/computer document * Subjective Chief complaint: Breakthrough seizures HPI: 54 y/o F with PMH of HTN, T2DM, AK 20 yrs ago, no stent, CVA with subsequent seizure, and bipolar was transferred from [facility] for seizure eval and management. Patient hospitalized in [facility] for 2 weeks due to severe depression and SI after loss of ; mood improved but experienced 9 seizures in the [facility] and 3 witnessed en route to [facility] ED. In the ED, she received IV [...] expansion Abdomen: non-tender, normal bowel sounds, soft Neuro/FOOD SERVICE REPRESENTATIVE: alert Skin: dry, intact, normal color Psychiatry: anxious Diagnosis, Assessment Plan Free Text DxA P Notes Free text DxA P notes: 54 y/o F with PMH of HTN, T2DM, AK 20 yrs ago, no stent, CVA with subsequent seizure, and bipolar disorder admitted for the following; 1. Status epilepticus Downgraded to IMU Continue Ativan as needed Patient is on multiple seizure medications ,Celebyx, Dilantin and Depakote Neurology is following input appreciated MRI of the brain reported Management of seizure per neurologist. Hot Roll Inspector also consulted appreciate input EEG is done [...] deficit resume home med 7.. hx of AK, no stents resume home med 8. Hyperlipidemia [...] discussed with nursing staff. Case discussed at [facility] at 1359 RPT #: [id number] END OF REPORT [id number] 08:55:00 [facility] ([facility]) Neurology Progress Note REPORT#:[id number] REPORT STATUS: Signed REPORT INITIALIZATION DATE:10/24/24 TIME:854 PATIENT: HEATHER TURNER UNIT #: [id number] ROOM/BED: [place] [address] : 72 AGE: 54 SEX: F ATTEND: Segundo Toledo MD ADM AUTHOR: Martín Bone MD REPT SERVICE DT/TIME: 10/24/24 0855 * ALL edits or amendments must be made on the electronic/computer document * Subjective Chief Complaint: 54-year-old female with history of diabetes, obesity, hypertension, AK 20 years ago, stroke with subsequent seizure and seizure disorder reduced to follow-up with a neurologist in [place] but has been noncompliant with medication as well as follow-up, bipolar disorder transferred from [facility] for seizure evaluation and management. Patient hospitalized with severe depression and psychosis at a [facility] facility. She reportedly had depression and suicidal ideation after loss of . Patient's mood improved but experienced 9 seizures in the [facility]. She had 3 witnessed seizures and route to [facility] as well. At [facility] ER she received IV benzodiazepines and [...] deficits. History Additional medical history: HTN, T2DM, AK, CVA with subsequent seizure, and bipolar, radiculopathy Additional surgical history: Cholecystectomy, right foot surgeries, cervical spine laminectomy, lumbar spine laminectomy, appendectomy, tonsillectomy Additional family history: Noncontributory Alcohol use: Denies EtOH use Drug use: Denies recreational drugs Smoking status for patients 13 years old or older: Never Smoker Medication/Allergy-Vaccine Hx Medications: Current Hospital Medications: History - Adult longitudinal Additional medical history: HTN, T2DM, AK, CVA with subsequent seizure, and bipolar, radiculopathy [...] Documented: Result Date Time Temp 36.7 10/24 0819 Pulse Ox 89 10/24 0800 B/P 111/54 10/24 0800 B/P Mean 78 10/24 0800 Pulse 97 10/24 0800 Resp 17 10/24 0800 FiO2 21 10/24 0624 O2 Delivery Room air 10/25 723 O2 [...] weight checks Dietitian name: Malinda Serna RDN, LD Assessment completed: 10/21/24 Physical Exam General appearance: awake Head/Eyes: atraumatic ENT: moist mucosal membranes Neck: supple/no meningismus Cardiovascular: regular rate and rhythm Respiratory: no distress Abdomen: soft Extremities: pulses present Musculoskeletal: full range of motion Neuro/FOOD SERVICE REPRESENTATIVE: gait abnormality, alert, oriented X 4, normal [...] 10.1 MG/DL) 8.4 L Laboratory Tests 10/24 0419 Hematology WBC (3.5 - 11.0 K/mm3) 8.7 [...] % (Auto) (20.5 - 51.1 %) 30.1 Gilmer % (Auto) (1.7 - 9.3 %) 10.3 H Eos % (Auto) (0.0 - 6.0 %) 3.2 Baso % (Auto) (0.0 - 2.0 %) 0.9 Neut # (Auto) (1.8 - 7.6 K/mm3) 4.7 Lymph # (Auto) (0.6 - 3.2 K/mm3) 2.6 Gilmer # (Auto) (0.3 - 1.1 K/mm3) 0.9 [...] Report Impression - Status: SIGNED Entered: 10/23/2024 8047 IMPRESSION: No definite acute fracture or dislocation. Impression By: BryantJVVlaeri - John Dowd M.D. Diagnosis, Assessment Plan Problem List/A P: 1. Seizures 2. Breakthrough seizure 3. Influenza B Free Text A P: 54-year-old female with history of diabetes, obesity, hypertension, AK 20 years ago, stroke with subsequent seizure and seizure disorder reduced to follow-up with a neurologist in [place] but has been noncompliant with medication as well as follow-up, bipolar disorder transferred from [facility] for seizure evaluation and management. Patient hospitalized with severe depression and psychosis at a [facility] facility. She reportedly had depression and suicidal ideation after loss of . Patient's mood improved but experienced 9 seizures in the [facility]. She had 3 witnessed seizures and route to [facility] as well. At [facility] ER she received IV benzodiazepines and IV [...] deficits. History Additional medical history: HTN, T2DM, AK, CVA with subsequent seizure, and bipolar, radiculopathy [...] IV 11/17 0244 Central Nervous System Agents Sig/Asnchez Start time Last Medication Dose Route Stop [...] 024 AC (DEXTROSE 10% IN IV 11/17 0244 [...] 11/17 07 Glucagon 1 MG ASDIR PRN 04/01 0245 AC (GLUCAGON) IM 11/18 243 Dose Instructions: [...] seizures and no epileptiform activity noted. at 2125 MRI brain: FINDINGS: Brain: There are no [...] 10/18 2030 AC 10/20 (BENADRYL) PO 11/17 202 2020 Autonomic Drugs Sig/Sanchez Start time Last Medication [...] Guaifenesin 200 MG Q4H PRN PRN 10/19 220 AC 10/19 (ROBITUSSIN) PO 11/18 215 2258 Skin And Mucous Membrane Agent Sig/Sanchez [...] Follow-up as outpatient as needed at 2024 [facility] #: [id number] END OF REPORT [id number] 12:56:00 [facility] ([facility]) Neurology Progress Note REPORT#:[id number] REPORT STATUS: Signed REPORT INITIALIZATION DATE:10/23/24 TIME:1256 PATIENT: HEATHER TURNER UNIT #: [id number] ROOM/BED: [place] [address] : 72 AGE: 54 SEX: F ATTEND: Segundo Toledo MD ADM AUTHOR: Martín Bone MD REPT SERVICE DT/TIME: 10/23/24 1256 * ALL edits or amendments must be made on the electronic/computer document * Subjective Chief Complaint: 54-year-old female with history of diabetes, obesity, hypertension, AK 20 years ago, stroke with subsequent seizure and seizure disorder reduced to follow-up with a neurologist in [place] but has been noncompliant with medication as well as follow-up, bipolar disorder transferred from [facility] for seizure evaluation and management. Patient hospitalized with severe depression and psychosis at a [facility] facility. She reportedly had depression and suicidal ideation after loss of . Patient's mood improved but experienced 9 seizures in the [facility]. She had 3 witnessed seizures and route to [facility] as well. At [facility] ER she received IV benzodiazepines and IV [...] deficits. History Additional medical history: HTN, T2DM, AK, CVA with subsequent seizure, and bipolar, radiculopathy Additional surgical history: Cholecystectomy, right foot surgeries, cervical spine laminectomy, lumbar spine laminectomy, appendectomy, tonsillectomy Additional family history: Noncontributory Alcohol use: Denies EtOH use Drug use: Denies recreational drugs Smoking status for patients 13 years old or older: Never Smoker Medication/Allergy-Vaccine Hx Medications: Current Hospital Medications: History - Adult longitudinal Additional medical history: HTN, T2DM, AK, CVA with subsequent seizure, and bipolar, radiculopathy [...] years: 0 Allergies: Coded Allergies: levetiracetam (From [facility]) (Severe, "MAKES ME FEEL FUNNY" 10/18/24) Review of Systems All systems rev neg: except as marked Review of Systems All systems rev neg: except as marked Objective General VS: Last Documented: Result Date Time Pulse Ox 98 10/23 1200 B/P 127/80 10/23 1200 B/P Mean 97 10/23 1200 Pulse 97 10/23 1200 Resp 21 10/23 1200 Temp 37.0 [...] pulses present Musculoskeletal: full range of motion Neuro/FOOD SERVICE REPRESENTATIVE: gait abnormality, alert, oriented X 4, normal [...] % (Auto) (20.5 - 51.1 %) 27.6 Gilmer % (Auto) (1.7 - 9.3 %) 10.0 H Eos % (Auto) (0.0 - 6.0 %) 2.9 Baso % (Auto) (0.0 - 2.0 %) 0.8 Neut # (Auto) (1.8 - 7.6 K/mm3) 4.4 Lymph # (Auto) (0.6 - 3.2 K/mm3) 2.1 Gilmer # (Auto) (0.3 - 1.1 K/mm3) 0.8 [...] female with history of diabetes, obesity, hypertension, AK 20 years ago, stroke with subsequent seizure and seizure disorder reduced to follow-up with a neurologist in [place] but has been noncompliant with medication as well as follow-up, bipolar disorder transferred from [facility] for seizure evaluation and management. Patient hospitalized with severe depression and psychosis at a [facility] facility. She reportedly had depression and suicidal ideation after loss of . Patient's mood improved but experienced 9 seizures in the [facility]. She had 3 witnessed seizures and route to [facility] as well. At [facility] ER she received IV benzodiazepines and [...] deficits. History Additional medical history: HTN, T2DM, AK, CVA with subsequent seizure, and bipolar, radiculopathy [...] 07 Glucagon 1 MG ASDIR PRN 10/18 244 [...] seizures and no epileptiform activity noted. at 0908 MRI brain: FINDINGS: Brain: There are no [...] 10/20 1800 AC 10/20 (ROCEPHIN) IV 10/25 175 180 Sterile Water 10 ML (WATER FOR [...] 10/18 1217 AC 10/20 (FLEXERIL) PO 11/17 Blood Derivatives Sig/Sanchez Start time Last Medication [...] outpatient as needed at 0855 RPT #: [id number] END OF REPORT [id number] 12:18:00 [facility] Hospitalist Progress Note REPORT#:[id number] REPORT STATUS: Signed REPORT INITIALIZATION DATE:10/23/24 TIME:1217 PATIENT: HEATHER TURNER UNIT #: [id number] ROOM/BED: [place] [address] : 72 AGE: 54 SEX: F ATTEND: Segundo Toledo MD ADM AUTHOR: Ignacio Langston MD REPT SERVICE DT/TIME: 10/23/24 1218 * ALL edits or amendments must be made on the electronic/computer document * Subjective Chief complaint: Breakthrough seizures HPI: 54 y/o F with PMH of HTN, T2DM, AK 20 yrs ago, no stent, CVA with subsequent seizure, and bipolar was transferred from [facility] for seizure eval and management. Patient hospitalized in [facility] for 2 weeks due to severe depression and SI after loss of ; mood improved but experienced 9 seizures in the [facility] and 3 witnessed en route to [facility] ED. In the ED, she received IV [...] expansion Abdomen: non-tender, normal bowel sounds, soft Neuro/FOOD SERVICE REPRESENTATIVE: alert, oriented X 3, normal speech Skin: dry, intact, normal color Psychiatry: anxious Diagnosis, Assessment Plan Free Text DxA P Notes Free text DxA P notes: 54 y/o F with PMH of HTN, T2DM, AK 20 yrs ago, no stent, CVA with subsequent seizure, and bipolar disorder admitted for the following; 1. Status epilepticus Downgraded to IMU Continue Ativan as needed Patient is presently on Celebyx Patient is also on Dilantin Patient started on Depakote Neurology is following input appreciated MRI of the brain reported Management of seizure per neurologist. Hot Roll Inspector also consulted appreciate input EEG is done [...] deficit resume home med 7.. hx of AK, no stents resume home med 8. Hyperlipidemia [...] is pending lumbar puncture Case discussed with financial assistance advisor and neurologist. Case discussed with nursing staff. at 1220 RPT #: [id number] END OF REPORT [id number] 21:53:00 [facility] Neurology Progress Note REPORT#:[id number] REPORT STATUS: Signed REPORT INITIALIZATION DATE:10/22/24 TIME:2152 PATIENT: HEATHER TURNER UNIT #: [id number] ROOM/BED: [place] [address] : 72 AGE: 54 SEX: F ATTEND: Segundo Toledo MD ADM AUTHOR: Martín Bone MD REPT SERVICE DT/TIME: 10/22/242152 * ALL edits or amendments must be made on the electronic/computer document * Subjective Chief Complaint: 54-year-old female with history of diabetes, obesity, hypertension, AK 20 years ago, stroke with subsequent seizure and seizure disorder reduced to follow-up with a neurologist in [place] but has been noncompliant with medication as well as follow-up, bipolar disorder transferred from [facility] for seizure evaluation and management. Patient hospitalized with severe depression and psychosis at a [facility] facility. She reportedly had depression and suicidal ideation after loss of . Patient's mood improved but [facility] She had 3 witnessed seizures and route to [facility] as well. At [facility] ER she received IV benzodiazepines and IV [...] deficits. History Additional medical history: HTN, T2DM, AK, CVA with subsequent seizure, and bipolar, radiculopathy Additional surgical history: Cholecystectomy, right foot surgeries, cervical spine laminectomy, lumbar spine laminectomy, appendectomy, tonsillectomy Additional family history: Noncontributory Alcohol use: Denies EtOH use Drug use: Denies recreational drugs Smoking status for patients 13 years old or older: Never Smoker Medication/Allergy-Vaccine Hx Medications: Current Hospital Medications: History - Adult longitudinal Additional medical history: HTN, T2DM, AK, CVA with subsequent seizure, and bipolar, radiculopathy [...] years: 0 Allergies: Coded Allergies: levetiracetam (From [facility] [facility]) (Severe, "MAKES ME FEEL FUNNY" 10/18/24) Review [...] Resp 17 10/23 1931 FiO2 21 10/22 09 O2 Flow Rate 2 10/21 2100 PATIENT WEIGHT: Weight (lb): 160 Weight (oz): 5.37 Weight (kg): 72.575 Medications Current Home Medications DIVALPROEX DR (DEPAKOTE ) 1,000 MG PO BID metFORMIN 500 MG [...] pulses present Musculoskeletal: full range of motion Neuro/FOOD SERVICE REPRESENTATIVE: gait abnormality, alert, oriented X 4, normal [...] % (Auto) (20.5 - 51.1 %) 25.6 Gilmer % (Auto) (1.7 - 9.3 %) 10.2 H Eos % (Auto) (0.0 - 6.0 %) 2.5 Baso % (Auto) (0.0 - 2.0 %) 0.7 Neut # (Auto) (1.8 - 7.6 K/mm3) 4.5 Lymph # (Auto) (0.6 - 3.2 K/mm3) 1.9 Gilmer # (Auto) (0.3 - 1.1 K/mm3) 0.8 [...] female with history of diabetes, obesity, hypertension, AK 20 years ago, stroke with subsequent seizure and seizure disorder reduced to follow-up with a neurologist in [place] but has been noncompliant with medication as well as follow-up, bipolar disorder transferred from [facility] for seizure evaluation and management. Patient hospitalized with severe depression and psychosis at a [facility] facility. She reportedly had depression and suicidal ideation after loss of . Patient's mood improved but experienced 9 seizures in the [facility]. She had 3 witnessed seizures and route to [facility] as well. At [facility] ER she received IV benzodiazepines and IV [...] deficits. History Additional medical history: HTN, T2DM, AK, CVA with subsequent seizure, and bipolar, radiculopathy [...] Q12HR 10/18 1000 AC 10/18 (TAMIFLU) PO 10/221 1019 Autonomic Drugs Sig/Sanchez Start time Last [...] BID 10/18 1217 AC 10/20 (FLEXERIL) PO 11/18 1215 2020 Blood Derivatives Sig/Sanchez Start time Last Medication Dose Route Stop Time Status Admin Albumin Human 25 GM Q8H 10/20 0600 AC 10/20 (Albumin 25%) IV 10/21 0559 2018 Albumin Human 25 GM Q8H 10/19 1900 DC 10/19 (Albumin 25%) IV 10/20 185 2246 Blood Formation,Coagulation Sig/Sanchez Start time Last [...] Sodium 100 MG Q12HR 10/18 1000 DC 04/03 (Cerebyx) IV 11/17 0959 1024 Sodium Chloride 50 ML (0.9% Sodium Chloride) Acetaminophen 650 MG Q4H PRN PRN 10/18 024 AC 10/20 (TYLENOL) PO 11/17 024 1702 Lorazepam 2 MG Q6H PRN PRN [...] Follow-up as outpatient as needed at 2155 [facility] #: [id number] END OF REPORT [id number] 13:04:00 [facility] ([facility]) Hospitalist Progress Note REPORT#:[id number] REPORT STATUS: Signed REPORT INITIALIZATION DATE:10/22/24 TIME:1304 PATIENT: HEATHER TURNER UNIT #: [id number] RO[address]BED: [address] : 72 AGE: 54 SEX: F ATTEND: Segundo Toledo MD ADM AUTHOR: Ignacio Langston MD REPT SERVICE DT/TIME: 10/22/24 1304 * ALL edits or amendments must be made on the electronic/computer document * Subjective Chief complaint: Breakthrough seizures HPI: 54 y/o F with PMH of HTN, T2DM, AK 20 yrs ago, no stent, CVA with subsequent seizure, and bipolar was transferred from [facility] for seizure eval and management. Patient hospitalized in [facility] for 2 weeks due to severe depression and SI after loss of ; mood improved but experienced 9 seizures in the [facility] and 3 witnessed en route to [facility] ED. In the ED, she received IV [...] expansion Abdomen: non-tender, normal bowel sounds, soft Neuro/FOOD SERVICE REPRESENTATIVE: alert, oriented X 3, normal speech Skin: dry, intact, normal color Diagnosis, Assessment Plan Free Text DxA P Notes Free text DxA P notes: 54 y/o F with PMH of HTN, T2DM, AK 20 yrs ago, no stent, CVA with subsequent seizure, and bipolar disorder admitted for the following; 1. Status epilepticus Downgraded to IMU Continue Ativan as needed Patient is presently on Celebyx Patient is also on Dilantin Neurology is following input appreciated MRI of the brain reported Management of seizure per neurologist. Hot Roll Inspector also consulted appreciate input EEG is done 2. Flu B positive Tamiflu, symptom management 3. Bipolar with depression with suicidal ideation, not active Continue necessary home med Patient evaluated by H CAT and per RN patient is cleared for DC home 4. DM2 SSI 5. Hypertension PRN hydralzine 6. hx of CVA with no residual deficit resume home med 7.. hx of AK, no stents resume home med 8. Hyperlipidemia [...] 24 to 48 hours Case discussed with financial assistance advisor and neurologist. Case discussed with nursing staff. at 1311 RPT #: [id number] END OF REPORT [id number] 20:52:00 [facility] Neurology Progress Note REPORT#:[id number] REPORT STATUS: Signed REPORT INITIALIZATION DATE:10/21/24 TIME:2051 PATIENT: HEATHER TURNER UNIT #: [id number] ROOM/BED: [place] [id number] : 72 AGE: 54 SEX: F ATTEND: Segundo Toledo MD ADM AUTHOR: Martín Bone MD REPT SERVICE DT/TIME: 10/21/242051 * ALL edits or amendments must be made on the electronic/computer document * Subjective Chief Complaint: 54-year-old female with history of diabetes, obesity, hypertension, AK 20 years ago, stroke with subsequent seizure and seizure disorder reduced to follow-up with a neurologist in [place] but has been noncompliant with medication as well as follow-up, bipolar disorder transferred from [facility] for seizure evaluation and management. Patient hospitalized with severe depression and psychosis at a [facility]. She reportedly had depression and suicidal ideation after loss of . Patient's mood improved but experienced 9 seizures in the [facility]. She had 3 witnessed seizures and route to [facility] as well. At [facility] ER she received IV benzodiazepines and [...] deficits. History Additional medical history: HTN, T2DM, AK, CVA with subsequent seizure, and bipolar, radiculopathy Additional surgical history: Cholecystectomy, right foot surgeries, cervical spine laminectomy, lumbar spine laminectomy, appendectomy, tonsillectomy Additional family history: Noncontributory Alcohol use: Denies EtOH use Drug use: Denies recreational drugs Smoking status for patients 13 years old or older: Never Smoker Medication/Allergy-Vaccine Hx Medications: Current Hospital Medications: History - Adult longitudinal Additional medical history: HTN, T2DM, AK, CVA with subsequent seizure, and bipolar, radiculopathy [...] years: 0 Allergies: Coded Allergies: levetiracetam (From [facility]) (Severe, "MAKES ME FEEL FUNNY" 10/18/24) [...] Medications Current Home Medications DIVALPROEX DR (DEPAKOTE ) 1,000 MG PO BID metFORMIN 500 MG [...] pulses present Musculoskeletal: full range of motion Neuro/FOOD SERVICE REPRESENTATIVE: gait abnormality, alert, oriented X 4, normal [...] % (Auto) (20.5 - 51.1 %) 23.6 Gilmer % (Auto) (1.7 - 9.3 %) 10.6 H Eos % (Auto) (0.0 - 6.0 %) 2.1 Baso % (Auto) (0.0 - 2.0 %) 0.9 Neut # (Auto) (1.8 - 7.6 K/mm3) 3.9 Lymph # (Auto) (0.6 - 3.2 K/mm3) 1.6 Gilmer # (Auto) (0.3 - 1.1 K/mm3) 0.7 [...] female with history of diabetes, obesity, hypertension, AK 20 years ago, stroke with subsequent seizure and seizure disorder reduced to follow-up with a neurologist in [place] but has been noncompliant with medication as well as follow-up, bipolar disorder transferred from [facility] for seizure evaluation and management. Patient hospitalized with severe depression and psychosis at a [facility] facility. She reportedly had depression and suicidal ideation after loss of . Patient's mood improved but experienced 9 seizures in the [facility]. She had 3 witnessed seizures and route to [facility] as well. At [facility] ER she received IV benzodiazepines and IV [...] deficits. History Additional medical history: HTN, T2DM, AK, CVA with subsequent seizure, and bipolar, radiculopathy [...] seizures and no epileptiform activity noted. at 8111 MRI brain: FINDINGS: Brain: There are no [...] 1701 Cyclobenzaprine HCl 10 MG BID 10/18 121 AC 10/20 (FLEXERIL) PO 11/17 1216 2020 Blood Derivatives Sig/Sanchez Start time Last Medication Dose Route Stop Time Status Admin Albumin Human 25 GM Q8H 10/20 0600 AC 10/20 (Albumin 25%) IV 10/21 0559 2018 Albumin Human 25 GM Q8H / 1900 DC 10/19 (Albumin 25%) IV 10/20 [...] 10/18 0245 AC 10/20 (TYLENOL) PO 11/17 024 1702 Lorazepam 2 MG Q6H PRN PRN 10/18 024 AC 10/20 (ATIVAN) IV 11/17 024 1113 Electrolytic, Caloric, And Bhanu Sig/Sanchez Start [...] 10/19 2200 AC 10/19 (ROBITUSSIN) PO 11/18 215 2258 Skin And Mucous Membrane Agent Sig/Sanchez [...] Follow-up as outpatient as needed at 2057 [facility] #: [id number] END OF REPORT [id number] 12:33:00 [facility]) Hospitalist Progress Note REPORT#:[id number] REPORT STATUS: Signed REPORT INITIALIZATION DATE:10/21/24 TIME:1233 PATIENT: HEATHER TURNER UNIT #: [id number] ROOM/BED: [place] [address] : 72 AGE: 54 SEX: F ATTEND: Segundo Toledo MD ADM AUTHOR: Ignacio Langston MD REPT SERVICE DT/TIME: 10/21/24 1233 * ALL edits or amendments must be made on the electronic/computer document * Subjective Chief complaint: Breakthrough seizures HPI: 54 y/o F with PMH of HTN, T2DM, AK 20 yrs ago, no stent, CVA with subsequent seizure, and bipolar was transferred from [facility] for seizure eval and management. Patient hospitalized in [facility] for 2 weeks due to severe depression and SI after loss of ; mood improved but experienced 9 seizures in the [facility] and 3 witnessed en route to [facility] ED. In the ED, she received IV [...] expansion Abdomen: non-tender, normal bowel sounds, soft Neuro/FOOD SERVICE REPRESENTATIVE: alert, oriented X 3, normal speech Skin: dry, intact, normal color Psychiatry: anxious Diagnosis, Assessment Plan Free Text DxA P Notes Free text DxA P notes: 54 y/o F with PMH of HTN, T2DM, AK 20 yrs ago, no stent, CVA with subsequent seizure, and bipolar disorder admitted for the following; 1. Status epilepticus Downgraded to IMU Continue Ativan as needed Patient is presently on Celebyx Also on Dilantin Neurology is following input appreciated MRI of the brain reported Management of seizure per neurologist. Hot Roll Inspector also consulted appreciate input EEG is done 2. Flu B positive Tamiflu, symptom management 3. Bipolar with depression with suicidal ideation, not active Continue necessary home med Patient is medically clear for H CAT evaluation 4. DM2 SSI 5. Hypertension PRN hydralzine 6. hx of CVA with no residual deficit resume home med 7.. hx of AK, no stents resume home med 8. Hyperlipidemia resume statin tx 9. Chronic back pain s/p lumbar and cervical spine laminectomy Continue home med when available in EMR pain control, reduced morphine dose 10. COPD Patient is on bronchodilator Also on antibiotic Diet -patient is on carbohydrate diet DVT ppx: Lovenox Full code Dispo H CAT evaluation pending Case discussed with financial assistance advisor and neurologist. Case discussed with nursing staff. at 1245 RPT #: [id number] END OF REPORT [id number] 10:06:00 [facility] ([facility]) Pulmonology Progress Note REPORT#:[id number] REPORT STATUS: Signed REPORT INITIALIZATION DATE:10/21/24 TIME:1006 PATIENT: HEATHER TURNER UNIT #: [id number] [address]BED: [address] : [birth year] AGE: 54 SEX: F ATTEND: Segundo Toledo MD ADM AUTHOR: Mariano Tong MD REPT SERVICE DT/TIME: 10/21/24 1006 * ALL edits or amendments must be made on the electronic/computer document * Subjective Chief complaint: no active seizures Off precedex drip Responsive HPI: 54 y/o F with PMH of HTN, T2DM, AK 20 yrs ago, no stent, CVA with subsequent seizure, and bipolar was transferred from [facility] for seizure eval and management. mood improved but experienced 9 seizures in the [facility] and 3 witnessed en route to [facility] ED. In the ED, she received IV benzodiazepine and IV fosphenytoin with resolution of seizures. CT brain: negative for acute findings. Lab results showed elevated lactic acid initially 3.1. Patient tested positive for flu. CXR: negative. patient reported chest congestion [facility] she developed recurrent seizures unresolved and was upgraded as status Review of Systems ROS All systems rev neg: except as marked Objective General VS/I O: Last Documented: Result Date Time Pulse Ox 97 10/21 0930 B/P 120/65 10/21 0930 B/P Mean 87 10/21 0930 Pulse 89 10/21 0930 Resp 20 10/21 0930 FiO2 28 10/21 0800 O2 Delivery Nasal cannula 10/21 0800 O2 Flow Rate 2 10/21 0800 Temp 36.7 10/21 0700 24 hour I [...] 1201: [Embedded Image Not Available] Laboratory Tests 10/21 0012017 1645 1201 Chemistry Sodium (136 - 145 [...] - 110 mg/dL) 85 Laboratory Tests 10/21 04/ 0017 1201 Hematology WBC (3.5 - 11.0 [...] (20.5 - 51.1 %) 23.6 19.8 L Gilmer % (Auto) (1.7 - 9.3 %) 10.6 H 8.9 Eos % (Auto) (0.0 - 6.0 %) 2.1 1.8 Baso % (Auto) (0.0 - 2.0 %) 0.9 1.0 Neut # (Auto) (1.8 - 7.6 K/mm3) 3.9 5.0 Lymph # (Auto) (0.6 - 3.2 K/mm3) 1.6 1.6 Gilmer # (Auto) (0.3 - 1.1 K/mm3) 0.7 [...] RADIOLOGY - XR CHEST 1 V 10/20 1811 Report Impression - Status: SIGNED Entered: 10/20/2024 183 IMPRESSION: Dependent infiltrates more prominent in the right lower lobe. Correlate clinically for pneumonia. Sequela of aspiration also possible. Impression By: [email or web address] Yarelis Troncoso M.D. Diagnosis, Assessment Plan Free Text A P: 1. Status epileptus 2 aspiration pneumonia 3. Bipolar disorder 4. Flu positive 5. COPD seem exa,omed neuro checks PRecedex drip Allegic to kera On cecybex Ativan as needed DG to IMU CXR reivewed RLL antibiotics rocphen and doxycycline , Tamiflu on board Pulmicort BID Start Duonebs Aspiration precautions advance diet Supportive care Discussed with ICU team Orders: Procedure Date/time Status CONSISTENT CARBOHYDRATE DIET 10/21 L Active RT: Nebulizer Treatment 10/21 1118 Active LEVEL OF CARE 10/21 1006 Active at 1119 RPT #: [id number] END OF REPORT [id number] 21:46:00 [facility] ([facility]) Neurology Progress Note REPORT#:[id number] REPORT STATUS: Signed REPORT INITIALIZATION DATE:10/20/24 TIME:2145 PATIENT: HEATHER TURNER UNIT #: [id number] ROOM/BED: [facility] : 72 AGE: 54 SEX: F ATTEND: Segundo Toledo MD ADM AUTHOR: Martín Bone MD REPT SERVICE DT/TIME: 10/20/24 2862 * ALL edits or amendments must be made on the electronic/computer document * Subjective Chief Complaint: 54-year-old female with history of diabetes, obesity, hypertension, AK 20 years ago, stroke with subsequent seizure and seizure disorder reduced to follow-up with a neurologist in [place] but has been noncompliant with medication as well as follow-up, bipolar disorder transferred from [facility] for seizure evaluation and management. Patient hospitalized with severe depression and psychosis at a [facility]. She reportedly had depression and suicidal ideation after loss of . Patient's mood improved but experienced 9 seizures in the [facility]. She had 3 witnessed seizures and route to [facility] as well. At [facility] ER she received IV benzodiazepines and IV [...] deficits. History Additional medical history: HTN, T2DM, AK, CVA with subsequent seizure, and bipolar, radiculopathy Additional surgical history: Cholecystectomy, right foot surgeries, cervical spine laminectomy, lumbar spine laminectomy, appendectomy, tonsillectomy Additional family history: Noncontributory Alcohol use: Denies EtOH use Drug use: Denies recreational drugs Smoking status for patients 13 years old or older: Never Smoker Medication/Allergy-Vaccine Hx Medications: Current Hospital Medications: History - Adult longitudinal Additional medical history: HTN, T2DM, AK, CVA with subsequent seizure, and bipolar, radiculopathy [...] Flow Rate 2 10/20 2110 B/P 149/93 /1829 B/P Mean 115 10/20 1829 Pulse 91 [...] pulses present Musculoskeletal: full range of motion Neuro/FOOD SERVICE REPRESENTATIVE: gait abnormality, alert, oriented X 4, normal [...] (Auto) (20.5 - 51.1 %) 19.8 L Gilmer % (Auto) (1.7 - 9.3 %) 8.9 Eos % (Auto) (0.0 - 6.0 %) 1.8 Baso % (Auto) (0.0 - 2.0 %) 1.0 Neut # (Auto) (1.8 - 7.6 K/mm3) 5.0 Lymph # (Auto) (0.6 - 3.2 K/mm3) 1.6 Gilmer # (Auto) (0.3 - 1.1 K/mm3) 0.7 [...] 1810 Report Impression - Status: SIGNED Entered: 10/20/20241838 IMPRESSION: Dependent infiltrates more prominent in the right lower lobe. Correlate clinically for pneumonia. Sequela of aspiration also possible. Impression By: [email or web address] - Yariel Troncoso M.D. Results: labs reviewed Diagnosis, Assessment Plan Free Text A P: 54-year-old female with history of diabetes, obesity, hypertension, AK 20 years ago, stroke with subsequent seizure and seizure disorder reduced to follow-up with a neurologist in [place] but has been noncompliant with medication as well as follow-up, bipolar disorder transferred from [facility] for seizure evaluation and management. Patient hospitalized with severe depression and psychosis at a [facility]. She reportedly had depression and suicidal ideation after loss of . Patient's mood improved but experienced 9 seizures in the [facility]. She had 3 witnessed seizures and route to [facility] as well. At [facility] ER she received IV benzodiazepines and [...] deficits. History Additional medical history: HTN, T2DM, AK, CVA with subsequent seizure, and bipolar, radiculopathy [...] Admin Enoxaparin Sodium 40 MG Q24H 10/18 05 AC 10/18 (lovENOX) SUBQ 11/01 0512 0613 [...] 07 Glucagon 1 MG ASDIR PRN 10/18 244 [...] seizures and no epileptiform activity noted. at 1054 MRI brain: FINDINGS: Brain: There are no [...] 70 Follow-up as outpatient as needed at 2144 RPT #: [id number] END OF REPORT [id number] 21:44:00 [facility] ([facility]) Neurology Progress Note REPORT#:[id number] REPORT STATUS: Signed REPORT INITIALIZATION DATE:10/20/24 TIME:2143 PATIENT: HEATHER TURNER UNIT #: [id number] ROOM/BED: ICU06-1 : 72 AGE: 54 SEX: F ATTEND: Segundo Toledo MD ADM AUTHOR: Martín Bone MD REPT SERVICE DT/TIME: 10/20/242143 * ALL edits or amendments must be made on the electronic/computer document * Subjective Chief Complaint: 54-year-old female with history of diabetes, obesity, hypertension, AK 20 years ago, stroke with subsequent seizure and seizure disorder reduced to follow-up with a neurologist in [place] but has been noncompliant with medication as well as follow-up, bipolar disorder transferred from [facility] for seizure evaluation and management. Patient hospitalized with severe depression and psychosis at a [facility] facility. She reportedly had depression and suicidal ideation after loss of . Patient's mood improved but experienced 9 seizures in the [facility]. She had 3 witnessed seizures and route to [facility] as well. At [facility] ER she received IV benzodiazepines and IV [...] deficits. History Additional medical history: HTN, T2DM, AK, CVA with subsequent seizure, and bipolar, radiculopathy Additional surgical history: Cholecystectomy, right foot surgeries, cervical spine laminectomy, lumbar spine laminectomy, appendectomy, tonsillectomy Additional family history: Noncontributory Alcohol use: Denies EtOH use Drug use: Denies recreational drugs Smoking status for patients 13 years old or older: Never Smoker Medication/Allergy-Vaccine Hx Medications: Current Hospital Medications: History - Adult longitudinal Additional medical history: HTN, T2DM, AK, CVA with subsequent seizure, and bipolar, radiculopathy [...] years: 0 Allergies: Coded Allergies: levetiracetam (From [facility]) (Severe, "MAKES ME FEEL FUNNY" 10/18/24) Review [...] pulses present Musculoskeletal: full range of motion Neuro/FOOD SERVICE REPRESENTATIVE: gait abnormality, alert, oriented X 4, normal [...] (Auto) (20.5 - 51.1 %) 19.8 L Gilmer % (Auto) (1.7 - 9.3 %) 8.9 Eos % (Auto) (0.0 - 6.0 %) 1.8 Baso % (Auto) (0.0 - 2.0 %) 1.0 Neut # (Auto) (1.8 - 7.6 K/mm3) 5.0 Lymph # (Auto) (0.6 - 3.2 K/mm3) 1.6 Gilmer # (Auto) (0.3 - 1.1 K/mm3) 0.7 [...] Report Impression - Status: SIGNED Entered: 10/20/2024 183 IMPRESSION: Dependent infiltrates more prominent in the right lower lobe. Correlate clinically for pneumonia. Sequela of aspiration also possible. Impression By: [email or web address] - Yariel Troncoso M.D. Results: labs reviewed Diagnosis, Assessment Plan Free Text A P: 54-year-old female with history of diabetes, obesity, hypertension, AK 20 years ago, stroke with subsequent seizure and seizure disorder reduced to follow-up with a neurologist in [place] but has been noncompliant with medication as well as follow-up, bipolar disorder transferred from [facility] for seizure evaluation and management. Patient hospitalized with severe depression and psychosis at a [facility] facility. She reportedly had depression and suicidal ideation after loss of . Patient's mood improved but experienced 9 seizures in the [facility]. She had 3 witnessed seizures and route to [facility] as well. At [facility] ER she received IV benzodiazepines and [...] deficits. History Additional medical history: HTN, T2DM, AK, CVA with subsequent seizure, and bipolar, radiculopathy [...] 07 Glucagon 1 MG ASDIR PRN 10/18 244 [...] seizures and no epileptiform activity noted. at 6450 Breakthrough seizures most likely related to noncompliance [...] Follow-up as outpatient as needed at 2145 [facility] #: [id number] END OF REPORT [id number] 20:24:00 [facility] ([facility]) Electroencephalogram-EEG REPORT#:[id number] REPORT STATUS: Signed REPORT INITIALIZATION DATE:10/20/24 TIME:2023 PATIENT: HEATHER TURNER UNIT #: [id number] ROOM/BED: [place] [address] : 72 AGE: 54 SEX: F ATTEND: [...] 1900 DC 10/19 (Albumin 25%) IV 10/20 185 2246 Blood Formation,Coagulation Sig/Sanchez Start time Last [...] 10/19 2200 AC 10/19 (ROBITUSSIN) PO 11/18 215 2258 Skin And Mucous Membrane Agent Sig/Sanchez [...] epileptiform activity noted. at 0803 RPT #: [id number] END OF REPORT [id number] 17:13:00 [facility]) Pulmonary Consultation Note REPORT#:[id number] REPORT STATUS: Signed REPORT INITIALIZATION DATE:10/20/24 TIME:1712 PATIENT: HEATHER TURNER UNIT #: [id number] ROOM/BED: [place] [address] : 72 AGE: 54 SEX: F ATTEND: Segundo Toledo MD ADM AUTHOR: Mariano Tong MD REPT SERVICE DT/TIME: 10/20/241712 * ALL edits or amendments must be made on the electronic/computer document * History of Present Illness HPI HPI: 54 y/o F with PMH of HTN, T2DM, AK 20 yrs ago, no stent, CVA with subsequent seizure, and bipolar was transferred from [facility] for seizure eval and management. mood improved but experienced 9 seizures in the [facility] and 3 witnessed en route to [facility] ED. In the ED, she received IV benzodiazepine and IV fosphenytoin with resolution of seizures. CT brain: negative for acute findings. Lab results showed elevated lactic acid initially 3.1. Patient tested positive for flu. CXR: negative. patient reported chest congestion [facility] she developed recurrent seizures unresolved and was upgraded as status History - Adult longitudinal Additional medical history: HTN, T2DM, AK, CVA with subsequent seizure, and bipolar, radiculopathy [...] years: 0 Allergies: Coded Allergies: levetiracetam (From [facility]) (Severe, "MAKES ME FEEL FUNNY" 10/18/24) [...] (Auto) (20.5 - 51.1 %) 19.8 L Gilmer % (Auto) (1.7 - 9.3 %) 8.9 Eos % (Auto) (0.0 - 6.0 %) 1.8 Baso % (Auto) (0.0 - 2.0 %) 1.0 Neut # (Auto) (1.8 - 7.6 K/mm3) 5.0 Lymph # (Auto) (0.6 - 3.2 K/mm3) 1.6 Gilmer # (Auto) (0.3 - 1.1 K/mm3) 0.7 [...] time 32 min at 1722 RPT #: [id number] END OF REPORT [id number] 10:10:00 [facility]) Hospitalist Progress Note REPORT#:[id number] REPORT STATUS: Signed REPORT INITIALIZATION DATE:10/20/24 TIME:1010 PATIENT: HEATHER TURNER UNIT #: [id number] [address]ED: [address] : [address] AGE: 54 SEX: F ATTEND: Segundo Toledo MD ADM AUTHOR: Ignacio Langston MD REPT SERVICE DT/TIME: 10/20/24 1010 * ALL edits or amendments must be made on the electronic/computer document * See Addendum Subjective Chief complaint: Breakthrough seizures HPI: 54 y/o F with PMH of HTN, T2DM, AK 20 yrs ago, no stent, CVA with subsequent seizure, and bipolar was transferred from [facility] for seizure eval and management. Patient hospitalized in [facility] for 2 weeks due to severe depression and SI after loss of ; mood improved but experienced 9 seizures in the [facility] and 3 witnessed en route to [facility] ED. In the ED, she received IV [...] seen at bedside Patient was transferred from [facility] facility for neuro eval Patient with recurrent seizure despite being on home med Labs are pending MRI is pending Patient is on morphine for pain Patient is also on midodrine Patient complaining of back pain Morphine reduced to 2 mg IV as needed Patient had multiple seizure like activity this morning Case discussed with financial assistance advisor and neurology Dilantin IV is ordered per [...] expansion Abdomen: non-tender, normal bowel sounds, soft Neuro/FOOD SERVICE REPRESENTATIVE: alert, oriented X 3, normal speech Skin: [...] edema. MS: Normal inspection, no CVA tenderness. Neuro/FOOD SERVICE REPRESENTATIVE: A O x 3, normal speech, no motor deficits, no sensory deficits. Skin: Normal color, normal temp, no rash. Lymph: Neck normal. Psych: Normal affect. Diagnosis, Assessment Plan Free Text DxA P Notes Free text DxA P notes: 54 y/o F with PMH of HTN, T2DM, AK 20 yrs ago, no stent, CVA with [...] is pending Management of seizure per neurologist. Hot Roll Inspector also consulted appreciate input EEG 2. Flu B positive Tamiflu, symptom management 3. Bipolar with depression with suicidal ideation, not active Continue necessary home med when available in EMR and when able to swallow HCAT evaluation once medically cleared 4. DM2 SSI 5. Hypertension PRN hydralzine 6. hx of CVA with no residual deficit resume home med 7.. hx of AK, no stents resume home med 8. Hyperlipidemia resume statin tx 9. Chronic back pain s/p lumbar and cervical spine laminectomy Continue home med when available in EMR pain control, reduced morphine dose Diet - n.p.o. for now D5 NS while n.p.o. DVT ppx: Lovenox Full code Dispo H CAT evaluation once medically cleared Case discussed with financial assistance advisor and neurologist. Case discussed with nursing staff. at 1329 Addendum 1: 10/20/24 1330 by Ignacio Langston MD MRI IS DONE -No MR explanation for the patient's seizures. Normal evidence of acute intracranial ischemia or hemorrhage. Negative for gliosis, mesiotemporal sclerosis or at 1331 RPT #: [id number] END OF REPORT [id number] 13:00:00 [facility] ([facility]) Electroencephalogram-EEG REPORT#:[id number] REPORT STATUS: Signed REPORT INITIALIZATION DATE:10/18/24 TIME:1300 PATIENT: HEATHER TURNER UNIT #: [id number] ROOM/BED: [place] [address] : 72 AGE: 54 SEX: F ATTEND: [...] PRN PRN 10/18 0245 AC (ZOFRAN) IV 05/01 0244 Hormones And Synthetic Substit Sig/Sanchez Start [...] epileptiform activity noted. at 2124 RPT #: [id number] END OF REPORT [id number] 12:09:00 [facility] ([facility]) Hospitalist Progress Note REPORT#:[id number] REPORT STATUS: Signed REPORT INITIALIZATION DATE:10/18/24 TIME:1208 PATIENT: HEATHER TURNER UNIT #: [id number] ROOM/BED: [place] [address] : 72 AGE: 54 SEX: F ATTEND: Segundo Toledo MD ADM AUTHOR: Sheeba Bonds MSN REPT SERVICE DT/TIME: 10/18/24 1209 * ALL edits or amendments must be made on the electronic/computer document * Sheeba Bonds 10/18/24 1209: Subjective Chief complaint: Breakthrough seizures HPI: 54 y/o F with PMH of HTN, T2DM, AK 20 yrs ago, no stent, CVA with subsequent seizure, and bipolar was transferred from [facility] for seizure eval and management. Patient hospitalized in [place] for 2 weeks due to severe depression and SI after loss of ; mood improved but experienced 9 seizures in the [facility] and 3 witnessed en route to [facility] ED. In the ED, she received IV [...] 10/18 0800 82 19 144/77 104 95 04/ 0709 19 10/18 0700 81 151/66 95 95 04/ 0602 18 04/ 0600 79 118/71 90 96 04/ 0538 19 04/ 0530 82 111/56 79 95 04/ 0504 21 04/ 0501 95 04/ 0500 76 108/55 78 04/01 0435 19 04/ 0430 84 116/67 86 95 04/01 0128 84 21 141/92 109 97 04/01 0106 98.6 79 18 119/86 98 Room [...] expansion Abdomen: non-tender, normal bowel sounds, soft Neuro/FOOD SERVICE REPRESENTATIVE: alert, oriented X 3, normal speech Skin: [...] edema. MS: Normal inspection, no CVA tenderness. Neuro/FOOD SERVICE REPRESENTATIVE: A O x 3, normal speech, no motor deficits, no sensory deficits. Skin: Normal color, normal temp, no rash. Lymph: Neck normal. Psych: Normal affect. Diagnosis, Assessment Plan Free Text DxA P Notes Free text DxA P notes: 54 y/o F with PMH of HTN, T2DM, AK 20 yrs ago, no stent, CVA with [...] deficit resume home med 8. hx of AK, no stents resume home med 9. Hyperlipidemia resume statin tx 10. Chronic back pain s/p lumbar and cervical spine laminectomy pain control DVT ppx: Lovenox Full code Home medicatiions list pending receipt from [facility] at 1211 at 1213 RPT #: [id number] END OF REPORT [id number] 10:16:00 [facility] ([facility]) Neurology Consultation Note REPORT#:[id number] REPORT STATUS: Signed REPORT INITIALIZATION DATE:10/18/24 TIME:1016 PATIENT: HEATHER TURNER UNIT #: [id number] [address] AGE: 54 SEX: F ATTEND: Segundo Toledo MD ADM AUTHOR: Martín Bone MD REPT SERVICE DT/TIME: 10/18/24 1016 * ALL edits or amendments must be made on the electronic/computer document * History of Present Illness HPI HPI: 54-year-old female with history of diabetes, obesity, hypertension, AK 20 years ago, stroke with subsequent seizure and seizure disorder reduced to follow-up with a neurologist in [place] but has been noncompliant with medication as well as follow-up, bipolar disorder transferred from [facility] for seizure evaluation and management. Patient hospitalized with severe depression and psychosis at a [facility]. She reportedly had depression and suicidal ideation after loss of . Patient's mood improved but experienced 9 seizures in the [facility]. She had 3 witnessed seizures and route to [facility] as well. At [facility] ER she received IV benzodiazepines and IV [...] deficits. History Additional medical history: HTN, T2DM, AK, CVA with subsequent seizure, and bipolar, radiculopathy Additional surgical history: Cholecystectomy, right foot surgeries, cervical spine laminectomy, lumbar spine laminectomy, appendectomy, tonsillectomy Additional family history: Noncontributory Alcohol use: Denies EtOH use Drug use: Denies recreational drugs Smoking status for patients 13 years old or older: Never Smoker Medication/Allergy-Vaccine Hx Medications: Current Hospital Medications: History - Adult longitudinal Additional medical history: HTN, T2DM, AK, CVA with subsequent seizure, and bipolar, radiculopathy [...] years: 0 Allergies: Coded Allergies: levetiracetam (From [facility]) (Severe, "MAKES ME FEEL FUNNY" 10/18/24) [...] pulses present Musculoskeletal: full range of motion Neuro/FOOD SERVICE REPRESENTATIVE: gait abnormality, alert, oriented X 4, normal [...] Date/time Status EEG GREATER THAN 1 [place] [address] 10/18 UNK Active Free Text DxA P Notes: 54-year-old female with history of diabetes, obesity, hypertension, AK 20 years ago, stroke with subsequent seizure and seizure disorder reduced to follow-up with a neurologist in [place] but has been noncompliant with medication as well as follow-up, bipolar disorder transferred from [facility] for seizure evaluation and management. Patient hospitalized with severe depression and psychosis at a [facility]. She reportedly had depression and suicidal ideation after loss of . Patient's mood improved but experienced 9 seizures in the [facility]. She had 3 witnessed seizures and route to [facility] as well. At [facility] ER she received IV benzodiazepines and IV [...] deficits. History Additional medical history: HTN, T2DM, AK, CVA with subsequent seizure, and bipolar, radiculopathy [...] PRN 10/18 0245 AC (TYLENOL) PO 11/17 024 Lorazepam 2 [...] outpatient as needed at 1622 RPT #: [id number] END OF REPORT [id number] 03:25:00 [facility] ([facility]) Hospitalist History Physical REPORT#:[id number] REPORT STATUS: Signed REPORT INITIALIZATION DATE:10/18/24 TIME:324 PATIENT: HEATHER TURNER UNIT #: [id number] ROOM/BED: [place] [address] : 72 AGE: 54 SEX: F ATTEND: Segundo Toledo MD ADM AUTHOR: Yahaira Stevenson APRNNP REPT SERVICE DT/TIME: 10/18/24324 * ALL edits or amendments must be made on the electronic/computer document * Yahaira Stevenson 10/18/24324: History of Present Illness HPI Chief complaint: Breakthrough seizures PCP: PCP: Undefined Provider HPI: 54 y/o F with PMH of HTN, T2DM, AK 20 yrs ago, no stent, CVA with subsequent seizure, and bipolar was transferred from [facility] for seizure eval and management. Patient hospitalized in [facility] for 2 weeks due to severe depression and SI after loss of ; mood improved but experienced 9 seizures in the [facility] and 3 witnessed en route to [facility] ED. In the ED, she received IV [...] SI/HI. History Additional medical history: HTN, T2DM, AK, CVA with subsequent seizure, and bipolar, radiculopathy [...] Admin Oseltamivir Phosphate 75 MG Q12HR 10/18 2199 UNV (TAMIFLU) PO 10/23 1001 Blood Formation,Coagulation [...] 0729 Glucagon 1 MG ASDIR PRN 10/18 0245 AC (GLUCAGON) IM 11/17 0244 Dose Instructions: (1)Insulin Human Lispro (Admelog): ASDIRECTED Allergies: Coded Allergies: levetiracetam (From [facility]) (Severe, "MAKES ME FEEL FUNNY" 10/18/24) [...] edema. MS: Normal inspection, no CVA tenderness. Neuro/FOOD SERVICE REPRESENTATIVE: A O x 3, normal speech, no motor deficits, no sensory deficits. Skin: Normal color, normal temp, no rash. Lymph: Neck normal. Psych: Normal affect. Diagnosis, Assessment Plan Free Text DxA P Notes Free Text DxA P Notes: 54 y/o F with PMH of HTN, T2DM, AK 20 yrs ago, no stent, CVA with [...] deficit resume home med 8. hx of AK, no stents resume home med 9. Hyperlipidemia resume statin tx 10. Chronic back pain s/p lumbar and cervical spine laminectomy pain control DVT ppx: Lovenox Full code Home medicatiions list pending receipt from [facility] at 0347 at 1219 RPT #: [id number] END OF REPORT [id number] 23:47:00 [facility] ([facility]) EEG/Epilepsy Monitor Report REPORT #: [id number] REPORT STATUS: Signed DATE: 10/17/24 TIME: 2346 PATIENT: HEATHER TURNER UNIT #: [id number] ROOM #: BED: : 72 AGE: 54 SEX: F ATTEND: Gus Santamaria MD [facility] DT: AUTHOR: Ivis Reeves MD ATTENTION *EDITS and/or ADDENDA must be made in Patient Keeper for this note. * * Edits and ammendments created in Cardback are not visible * * in Patient [...] * * Edits and ammendments created in Cardback are not visible * * in Patient Keeper or the legal medical record (HPF). * [facility] #: [id number] END OF [id number] 21:12:00 [facility] ([facility]) EMERGENCY PROVIDER REPORT REPORT#:[id number] REPORT STATUS: Signed DATE:10/17/24 TIME: 2111 PATIENT: HEATHER TURNER UNIT #: [id number] ROOM: BED: : 72 AGE: 54 SEX: [...] DM, bipolar brought in by EMS from [facility] for evaluation of seizures. Per report patient [...] SEIZURES 9 Allergies Coded Allergies: levetiracetam (From [facility]) (Severe, UNCONSCIOUS 10/17/24) Pt reports no [...] (0 - 400 mg/dL) < 3 10/17 1944 2309 Chemistry Lactic Acid (0.5 - 2.0 [...] consents to transfer. Accepted as transfer to [facility]. Time of Re-Eval 2315 Re-Eval Status Improved ED Course Medication(s) Ordered [...] Admin Sodium Chloride 1,000 ML X1ED STA 10/171 DCr 10/18 IV 10/18 0950 0015 Sodium [...] over this patient's care. at 0037 RPT #:[id number] END OF [id number] 19:03:29* [id number] 19:03:29 Pending Results Scheduled Orders Name Type Priority Associated [...] on patient's age to complete this topic [facility] [id number] 19:03:29 Diagnosis Seizure-like activity (HCC) - Primary [facility] [id number] 19:03:29 [facility] [id number] 15:10:22* Consultation (Urgent) - Pending Review Specialty Diagnoses / Procedures Referred By Contac t Referred To Contact Neurology Diagnoses Breakthrough seizure (CMS/HCC) (HCC) Procedures NM OFFICE/OUTPATIENT [facility] 60 MINUTES Dipak Colindres MD [address] [facility] [id number] [place] [address] Phone: tel: fax: Referral ID Status Reason Start Date Expiration Date Visits Requested Visits Authorized [id number] Pending Review Specialty Services Required 08/10/2024 02/06/2025 1 1 LE MANAGER* Consultation (Urgent) - Pending Review Specialty Diagnoses / Procedures Referred By Contac t Referred To Contact Family Medicine Diagnoses Breakthrough seizure (CMS/HCC) (HCC) Subdural hematoma (HCC) Closed head injury, initial encounter Nonintractable epilepsy without status epilepticus, unspecified epilepsy type (HCC) Procedures NM OFFICE/OUTPATIENT NEW [facility] 60 MINUTES Dipak Colindres MD [address] [place] [address] Phone: tel: fax: Referral ID Status Reason Start Date Expiration Date Visits Requested Visits Authorized [id number] Pending Review Specialty Services Required 08/10/2024 02/06/2025 1 1 LE MANAGER* Imaging (Routine) - Pending Review Specialty Diagnoses / Procedures Referred By Justina lynn Referred To Contact Radiology Procedures CT brain wo IV contrast Dipak Colindres MD [address] [place] [id number] Phone: tel: fax: Referral ID Status Reason Start Date Expiration Date V isits Requested Visits Authorized [id number] Pending Review 08/10/2024 02/06/2025 1 1 LE MANAGER* Consultation (Urgent) - Pending Review Specialty Diagnoses / Procedures Referred By Justina lynn Referred To Contact Neurosurgery Diagnoses Subdural hematoma (HCC) Dipak Colindres MD [address] [facility] [place] [address] Phone: tel: fax: Referral ID Status Reason Start Date Expiration Date Visits Requested Visits Authorized [id number] Pending Review Specialty Services Required 08/10/2024 02/06/2025 1 1 LE MANAGER Jeffry [id number] 15:10:22* [facility] [id number] 15:10:22* Calculated C-SSRS Risk Score (Lifetime/Recent) Answer Date of Assessment Author No Risk Indicated 08/10/2024 8:53 AM MOBILE MANAGER Malinda Buckley RN * [place] Suicide Severity Rating Scale (Screener/Recent Self-Report) Question Answer Date of Assessment Author 1. Wish to be (Past 1 Month) No 025 8:53 AM MOBILE MANAGER Malinda Buckley, BETH 2. Non-Specific Active Suici tomy Thoughts (Past 1 Month) No 08/10/2024 8:53 AM MOBILE MANAGER Malinda Buckley, BETH 6. Suicidal Behavior (Lifetime) No 5 8:53 AM MOBILE MANAGER Malinda Buckley RN [place] [id number] 15:10:22* Loida Flores MD - 08/10/2024 12:37 PM MOBILE MANAGER General Neurology Initial Consultation Note Name: Heather [...] Dr. Sandra Mahmood MD Resident Physician Neurology [facility] | [employer] Subjective History of Present Illness: Heather Turner is a 54 y.o. female with PMH of HTN, Epilepsy, CAD, HFrEF 15-20% EF on Depakote 1000mg BID (patient reports muñoz prohibitive), and had a seizure 1/22/25 when she was in her wheelchair and fell down striking her head. She presented to a local ED and CT scan revealed right-sided parafalcine SDH, stable on repeat. Patient reportedly had 3 seizures in total and received loading dose of fosphenytoin, ativan, and phenobarbital at outside hospitals. She was transferred to [facility] ED for a higher level of care and treatment recommendations. At bedside, patient was in obvious pain, tearful 2/2 back pain. Patient was able to explain that she has not been able to take her prescribed Depakote 08/21 to muñoz. Says that it is more [...] Resource Strain: Low Risk (12/03/2023) Received from [facility] Overall Financial Resource Strain (CARDIA) Difficulty of Paying Living Expenses: Not very hard Food Insecurity: Food Insecurity Present (12/03/2023) Received from [facility] Hunger Vital Sign Worried About Running Out of Food in the Last Year: Sometimes true Ran Out of Food in the Last Year: Sometimes true Transportation Needs: No Transportation Needs (12/03/2023) Received from [facility] PRAPARE - Transportation Lack of Transportation (Medical): No Lack of Transportation (Non-Medical): No Recent Concern: Transportation Needs - Unmet Transportation Needs (11/26/2023) Received from [facility] PRAPARE - Transportation Lack of Transportation (Medical): Yes Lack of Transportation (Non-Medical): Yes Physical Activity: Inactive (12/03/2023) Received from [facility] Exercise Vital Sign Days of Exercise per Week: 0 days Minutes of Exercise per Session: 0 min Stress: Not on file Social Connections: Unknown (12/03/2023) Received from [facility] Social Connection and Isolation Panel [NHANES] Frequency of Communication with Friends and Family: Twice a week Frequency of Social Gatherings with Friends and Family: Not on file Attends Baptism Services: Not on file Active Member of Clubs or Organizations: Not on file Attends Club or Organization Meetings: Not on file Marital Status: Intimate Partner Violence: Not on file Housing Stability: High Risk (12/03/2023) Received from [facility] Housing Stability Vital Sign Unable to Pay [...] RES. This report was dictated by a Superintendent Logging/Fellow/NOHELIA: Roman Zendejas RES 08/10/2024 6:43 This report was dictated by a Superintendent Logging/Fellow/Physician Personal Care Aid. I have personally reviewed the images as well as the interpretation and agree with the findings. Report finalized by: Roberto Marina MD 08/10/2024 8:52 No MRI head results found for the past 14 days No EEG results found for the past 14 days I performed [id number] diagnostic evaluation of this patient.I have reviewed [...] stenosis. This can be done outpatient. Loida VangorVascular Neurology/Neurohospitalist, [facility] Senior Interior Designer, [facility] LE MANAGER LE MANAGER LE MANAGER LE MANAGER [facility] CenterWwkdobj8820-95-96 15:10:22Pending Results Scheduled Orders Name Type Priority [...] on patient's age to complete this topic [facility] CenterKrzhgwa3722-93-99 15:10:22 Diagnosis Subdural hematoma (HCC) - Primary Subdural hemorrhage Breakthrough seizure (CMS/HC C) (HCC) Closed head injury, initial encounter Nonintractable epilepsy with out status epilepticus, unspecified epilepsy type (HCC) Acute cystitis with hematuri a Seizure (HCC) Other convulsions Subdural hemorrhage (HCC) Subdural hemorrhage [facility] CenterVdohisd3215-48-67 15:10:22 [facility] CenterStjpvfm7974-40-05 06:02:36 [facility] CenterIbaskmz7834-86-13 06:02:36* Imaging (Routine) - Pending Review Specialty Diagnoses / Procedures Referred By Justina lynn Referred To Contact Radiology Procedures CT external head System, Provider Not In Referral ID Status Reason Start Date Expiration Date V isits Requested Visits Authorized [id number] Pending Review 08/10/2024 02/06/2025 1 1 LE MANAGER [facility] CenterQdpkock5236-91-92 06:02:36Upcoming Encounters Health Maintenance Due Date Last [...] on patient's age to complete this topic Jeffry BolañosHluyvnd0770-22-09 00:54:53 Summary: Discharge Images from the original [...] daughter, in no apparent distress, Alma Gould [place] 327434-09-15 00:10:43 Report to Campbell CAMPOS. Ely Hernández [place] 327434-09-14 22:25:58 Pt having seizure like activity as I walked in pt. Activity lasting about 40 seconds. Pt alert and able to answer questions immediately after activity. Yesenia Hightower [facility]zagt2659-30-23 20:44:51 Pt arrived via person WC with [...] meds for a month d/t financial issues. [place] 718094-06-25 23:59:33 Pt given printed and verbal discharge [...] wheelchairt, in no apparent distress, Liliana Blair [facility]athamFxuzna4541-73-49 22:05:12 Pt states that she has been having chest pressure that started 2 hrs door captain, pt states she also was trying to get in the bed and she fell hitting her right arm, knee, and foot. 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 OR [facility] TONSILLECTOMY Review of Systems: Review [...] 0.01 - 0.07 10*3/uL COMP. METABOLIC PANEL (30208) - Abnormal NA 140 135 - 145 [...] VW Cbc with Diff Comp. Metabolic Panel (25338) Troponin I Orders Placed This Encounter Medications [...] ED Physician in the absence of a rover tender: yes Previous ECG: Previous ECG: Unavailable Interpretation: [...] signed by: Radha Wyatt MD 01/12/24 2342 [facility]2024-06-25 16:22:00 TRANSITIONAL CARE MANAGEMENT ASSESSMENT 01/12/2024 Heather Turner [id number] Heather Turner is a 53 year old /White female was admitted on 01/09/24 to [facility] ICU. She was discharged on 01/10/24 with discharge disposition of HR- Routine Discharge. Admitting Physician: Darrick Fry Discharge Diagnosis: Hypotension No linked episodes TCM Aos-sqot-gk-face outreach documentation: Care Transition CM made f/u call to pt post-discharge x2. No response and call went to voicemail. CM left a discreet message with purpose of call and CM's call back information. Discharge Assessment Chart Assessed: 01/12/24 TCM Outreach Completed: 01/12/24 Future Appointments: T Veronique Carrillo RNSelect [facility], [facility] ShawBfmmxt7202-74-39 11:40:32 Care Transition CM made f/u call to pt post-discharge. No response and call went to voicemail. CM left a discreet message with purpose of call and CM's call back information. Veronique Carrillo RN, BSN Aquaculture [employer] Fisheries Professor-Transitions of Care [phone] [place] 535674-06-23 15:32:40 Problem: Discharge Planning Goal: Adequate for [...] RN Outcome: Adequate for discharge Addis Bates [facility] - Lpnmfs0739-08-22 15:32:28 Problem: Discharge Planning Goal: Adequate for [...] in pain sensation Outcome: Adequate for discharge [facility] - Imwfjs5483-71-01 14:55:21 Problem: Discharge Planning Goal: Adequate for [...] sensation Outcome: Adequate for discharge Wayne Merrill [facility] - Eghsgy2869-82-04 01:16:51 Problem: Discharge Planning Goal: Adequate for [...] in pain sensation Outcome: Progressing as expected [facility] Alexandria Walsh [facility]Xzyoay4520-71-95 22:42:54 Patient admitted to IMU for diagnosis of pneumonia, elevated D-dimer, hypotension, chest pain. Patient agrees to admission, discussed plan of care with patient and family. Patient is awake, alert, oriented, resp reg unlabored, color appropriate for race, PIV intact x2. No adverse reaction to medications administered while in ED. Belongings with patient to unit. Report to BETH Reyez. [facility]2024-06-22 22:35:43 Report given to BETH Reyez IMU [facility]2024-06-22 20:04:51 Patent resting Sheri Harding [facility] - Qqkkrg2414-55-37 16:09:08 Patient states: "I started having chest pain this morning" Reports history of AK, blood clots in heart, lung and legs, CHF. Malinda Andres [facility]Alpxmg1629-68-25 16:07:00 Associated Order(s): EKG-12 Lead ROUTINE ONCE Pre-Procedure Diagnose(s): Chest pain, unspecified type Post-Procedure Diagnose(s): Chest pain, unspecified type [facility] Emergency Department Note Patient Name: Heather Turner Date of : 1970 53 year old female Treatment Room: [place] [address] Primary Care Physician: Lb Lieberman Patient Escorted [...] SOB that started this morning. Hx of AK, PE and CHF. She rated her pain [...] vomiting or diarrhea. History provided by: Patient card checker used: No Past Medical History/Immunizations: Past Medical History: Diagnosis Date • Anxiety Extreme • Bipolar disorder • Breast pain 09/18/2015 • Cauda equina compression 11/21/2023 diagnosed 08/2023 • Congestive heart failure 2021 • COPD (chronic obstructive pulmonary disease) • Diverticulitis • Epilepsy • Hypertension • AK (myocardial infarction) 07/20/2007 • Slipped disc • [...] • METATARSAL OSTEOTOMY Right 08/14/2015 Surgeon: Luis Jnoes Jr., ESTHER; Location: [facility] OR Location • TONSILLECTOMY Review of Systems: Review [...] • N-TERMINAL PRO-BNP • COMP. METABOLIC PANEL (37430) • D-DIMER Orders Placed This Encounter Medications • aspirin tablet 325 mg • morpHINE (4 mg/mL) injection 4 mg • ondansetron (ZOFRAN (PF)) injection 4 mg First Provider Eval: ED Events Date/Time Event User Comments 01/09/24 1609 Medical Screening Begins OLENA DOYEL NP -- 01/09/24 1609 First Provider Evaluation OLENA DOYLE NP O -- ED COURSE Labs, chest [...] ED Physician in the absence of a rover tender: yes Previous ECG: Previous ECG: Compared to [...] SOB that started this morning. Hx of AK, PE and CHF. She rated her pain [...] SOB that started this morning. Hx of AK, PE and CHF. She rated her pain [...] and patient evaluation by RUBY Berman MD, [facility] Emergency Medicine [facility] ShawTeyvmc1814-43-14 10:18:53 Care Transitions Nurse CM made f/u call to patient post-discharge. No answer, call went to voicemail. CM left discreet message with CM's call back information. CM will try again at a later time. MANSOOR Lindsey, RN, CCRN Aquaculture And Fisheries Professor, Transitions of Care [email or web address] Jodi Berg RNSelect Medical Cleveland Clinic Rehabilitation Hospital, Edwin ShawLhzgob8032-28-17 10:45:32 Problem: Respiratory Function - Impaired Goal: [...] Outcome: Adequate for discharge Delaney Laird [facility]Jlqvcg3173-54-86 05:41:00 Problem: Respiratory Function - Impaired Goal: [...] Goal: Effective communication Outcome: Progressing as expected [facility]2024-05-27 18:20:42 Patient admitted to [facility] ADC 2215 for diagnosis of shortness of breath. Patient agrees to admission, discussed plan of care with patient and family. Patient is awake, A&Ox4, RR even and unlabored on RA. Color appropriate for race. PIV intact x1. No adverse reaction to medications administered while in ED. Belongings with patient to unit. [place] 998824-05-27 18:19:06 Nurse Report Report given to BETH Romero. Chief complaint, assessment findings, infusion verify and orders reviewed. Plan of care discussed with patient and both nurses. Patient/family members verbalized understanding. Lisette Murphy RN [facility] ShawJdjcfq7912-08-34 14:54:55 Report given to Amy Murphy RN. Updated on patient's medical condition, history of present condition and plan of care. Leo Hyde RNSelect Medical Cleveland Clinic Rehabilitation Hospital, [facility] ShawTvsnaq0895-00-03 13:30:46 Patient arrived in wheelchair with c/o shortness of breath starting this morning. Patient attempted to try her albuterol at home with no success. Patient attempt to feel better with husbands oxygen. Started to complaining of reproducible chest pain approximately 2 hours ago. Hx: CHF Lisette Murphy RNSelect Medical Cleveland Clinic Rehabilitation Hospital, Edwin ShawNvhsjd0603-20-05 13:24:00 AdmissionCare Guideline: Chest Pain - OBS, [...] care. AdmissionCare documentation entered by: Mj Bryan [facility] [employer], 27th edition, Copyright ? 2022 [facility] [employer] [facility] All Rights Reserved. [id number]:48:23-05:00 [facility] ShawZkebaj2931-74-07 18:26:32 Pt requesting to leave AMA, patient educated on risks, and benefits of leaving AMA. Patient continues to request to leave AMA. CCU notified of patients request. Patient educated on risk and benefits. AMA paperwork signed by patient. Duong Tello [place] [address]-05-16 14:42:13 Problem: Respiratory Function - Impaired Goal: Adequate oxygenation Outcome: Progressing as expected Goal: Adequate work of breathing Outcome: Progressing as expected Problem: Falls, Risk of Goal: Absence of falls Outcome: Progressing as expected T [place] [address]-05-15 17:16:35 Report to Rad with [facility], care transferred T Sheri Tompkins [place] [address]-05-15 16:47:06 Nurse Report Report given to Duong CAMPOS at [facility], Chief complaint, assessment findings, infusion verify and orders reviewed. Sheri Tompkins RN T [place] [address]-05-15 16:40:00 Pt tolerating bipap, updated on status, skinw/d [place] [address]19-05-15 16:09:00 Placed on bedpan [place] [address]-05-15 16:08:24 Report to Turner CAMPOS. Ely Hernández [facility]athamAwuixa9354-59-65 13:01:55 Pt arrived via private car with c/o chest pain starting about 30 minutes door captain. Selina Llanes [facility]athamYthnfe4113-65-89 12:56:00 Associated Order(s): EKG-12 Lead ROUTINE ONCE Pre-Procedure Diagnose(s): Other chest pain Post-Procedure Diagnose(s): Other chest pain [facility] Emergency Department Note Patient Name: Heather Turner Date of : 1970 53 year old female Treatment Room: SC1/SC1 Primary Care Physician: PATIENT DOES NOT HAVE A PCP Patient Escorted by: Family [5] Mode of Arrival: Personal means [1] EMS Treatment Prior to ED Arrival: AIRCRAFT AIR CONDITIONING MECHANIC treatment: Medication (comment) AIRCRAFT AIR CONDITIONING MECHANIC treatment comments: tylenol PM X2 at 0830, [...] today. PT was recently admitted to [facility] ICU for PE, chf and [...] (chronic obstructive pulmonary disease) Diverticulitis Epilepsy Hypertension AK (myocardial infarction) 07/20/2007 Slipped disc Stomach cancer [...] Location: [facility] OR [facility] TONSILLECTOMY Review of Systems: Review [...] reformations were generated. FINDINGS: Comparison made with 565-2024 study. Previously detected right lower lobe segmental [...] 0.01 - 0.07 10*3/uL COMP. METABOLIC PANEL (70693) - Abnormal NA 138 135 - 145 [...] VW Cbc with Diff Comp. Metabolic Panel (08044) Troponin I N-Terminal Pro-Bnp BLOOD CULTURE SCREEN [...] interpretation with external provider(s): Dr. Suero of [facility] cardiology accepting to CCU. Risk [...] signed by: Connor Renee MD 12/02/23 1632 [facility] - Grbatj3630-83-89 10:36:39 TRANSITIONAL CARE MANAGEMENT ASSESSMENT 12/01/2023 Heather Turner [id number] Heather Turner is a 53 year old /White female was admitted on 11/21/[address] She was discharged on 11/28/23 with discharge disposition of HR- Routine Discharge. Admitting Physician: Cr Fry Discharge Diagnosis: Decompensated acute on chronic HFrEF 15-20% EF Cardiogenic shock NSTEMI 2/2 stress induced cardiomyopathy 2/2 PE and drug use No linked episodes TCM Tnp-goox-mm-face outreach documentation: Discharge Assessment Chart Assessed: 12/01/23 [...] of $44. 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 to senior planning manager .) Do you know how to take your medications?: Yes Supplies Did you receive applicable home medical supplies/equipment?: N/A Follow Up Appointment Has a follow up appointment been scheduled?: No May I assist with scheduling this appointment?: Patient has outside PCP (Patient stated she was told that her providers at at [facility] and will not be following [facility]) Do you have any [...] stated she has to follow up with [facility] clinics Do you understand your discharge instructions? 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 No unable [...] N/A Ensure they have contact info for Compario: na Have you received your DME? N/A [...] 911 or go to the emergency room Dago Mckinley [facility] - Pqplrb7634-40-15 10:41:04 TRANSITIONAL CARE MANAGEMENT ASSESSMENT 11/30/2023 Heather Turner [id number] Heather Turner is a 53 year old /White female was admitted on 11/21/[address] She was discharged on 11/28/23 with discharge disposition of HR- Routine Discharge. Admitting Physician: Cr Fry Discharge Diagnosis: Decompensated acute on chronic HFrEF 15-20% EF Cardiogenic shock NSTEMI 2/2 stress induced cardiomyopathy 2/2 PE and drug use No linked episodes TCM Gox-cwyk-eg-face outreach documentation: Transition CM attempted to contact patient for post discharge follow up. CM left a message with male friend contact as he stated patient was asleep and not available. Future Appointments: Dago Mckinley [facility] - Xuiabz3227-10-32 15:39:19 Problem: Bleeding, Risk of Goal: Absence [...] breakdown Outcome: Adequate for discharge Aliyah Francisco [facility] - Xfgfqa2668-80-18 14:00:02 Problem: Discharge Planning Goal: Adequate for discharge 11/27/2023 1359 by Merlyn Ndiaye RN Outcome: Progressing as expected 11/27/2023 09 by Merlny Ndiaye RN Outcome: Progressing as expected Problem: Bleeding, Risk of Goal: Absence of impaired coagulation signs and symptoms 11/27/2023 1359 by Merlyn Ndiaye RN Outcome: Progressing as expected 11/27/2023 09 by Merlyn Ndiaye RN Outcome: Progressing as expected Goal: Absence of active bleeding 11/27/2023 1359 by Merlyn Ndiaye RN Outcome: [...] RN Outcome: Progressing as expected Merlyn Ndiaye [facility]Opjumu7801-85-34 09:51:54 Problem: Bleeding, Risk of Goal: Absence [...] new skin breakdown Outcome: Progressing as expected [facility] ShawQqibax3120-41-76 05:16:42 Problem: Bleeding, Risk of Goal: Absence [...] breakdown Outcome: Progressing as expected Mariely Wallace [facility]Bhgjhh1578-96-13 17:12:17 Problem: Bleeding, Risk of Goal: Absence [...] skin breakdown Outcome: Progressing as expected T [facility] - Hjvhxs8083-99-18 05:27:41 Problem: Bleeding, Risk of Goal: Absence [...] Outcome: Progressing as expected T Luda Vee [facility]athamGwzaqu4831-63-37 18:52:11 Summary: [facility] [place] Note Spoke with Rich Spencer from [facility] [place] at 18:12. Case #[id number]. T Brice Jackson [facility]athamGgfryd4859-43-63 10:16:03 Problem: Bleeding, Risk of Goal: Absence [...] new skin breakdown Outcome: Progressing as expected [facility]2024-05-06 10:41:53 Problem: Bleeding, Risk of Goal: Absence [...] Brice Jackson RN Outcome: Progressing as expected [facility] Tzctos4210-70-37 10:40:04 Problem: Bleeding, Risk of Goal: Absence [...] new skin breakdown Outcome: Progressing as expected [facility]2024-05-05 05:54:04 Problem: Bleeding, Risk of Goal: Absence [...] breakdown Outcome: Progressing as expected Hamlet Osullivan [facility]athamWhgnzg1861-45-72 23:58:07 Patient transferred to [place] for diagnosis of chest pain, NSTEMI, COPD exacerbation Patient agrees to transfer/admit plan and verbalized understanding of plan of care, family aware of plan Patient awake alert, oriented, resp reg unlabored, skin w/d PIV patent, no s/s infiltration noted, heparin infusing No adverse reaction to medications given while in ED. Report given to [facility] personnel Nery Orellana [facility]athamLuwsjq9312-60-36 23:55:09 Nurse Report Report given to BETH Zuleta in [place]. Chief complaint, assessment findings, infusion verify and orders reviewed. Plan of care discussed with nurse. Nery Orellana RN [facility] ShawGybfzg3391-13-96 23:18:14 Associated Order(s): Critical Care Critical Care [...] separately billable procedures and treating other patients. [facility]2024-05-04 23:11:13 Pt c/o difficulty breathing at this time. Pt placed on 2L O2 NC for comfort. TNEY Diehl [facility] - Dfntea4620-93-49 21:15:59 Summary: Triage CC: patient family states [...] self Appears in mild distress Alma Gould [facility] - Abodjg3854-80-38 21:07:00 EMERGENCY DEPARTMENT ENCOUNTER [facility] Patient Name: Heather Turner Date of : 1970 53 year old Exam Room:SC2/[facility] Primary Care Physician: PATIENT DOES NOT HAVE A PCP Pre- Hospital Patient Escorted by: Family [5] Mode of Arrival: Personal means [1] EMS Treatment Prior to ED Arrival: AIRCRAFT AIR CONDITIONING MECHANIC treatment: None ED Events Date/Time Event User [...] • Diverticulitis • Epilepsy • Hypertension • AK (myocardial infarction) 07/20/2007 • Slipped disc • Stomach cancer • Substance abuse Marijuana daily-for anxiety Tetanus received in last 5 years: Unknown Childhood immunizations: Up-to-date Past Surgical History Past Surgical History: Procedure Laterality Date • ANTERIOR CERVICAL FUSION • CHOLECYSTECTOMY • HAND/FINGER SURGERY UNLISTED Bilateral 3 L hand, 3 R hand • METATARSAL OSTEOTOMY Right 08/14/2015 Surgeon: Luis Jones Jr., DPM; Location: [facility] Location • TONSILLECTOMY Allergies Allergies Allergen Reactions [...] PLT ESTIMATE Normal Normal COMP. METABOLIC PANEL (61251) - Abnormal NA 134 (*) 135 - [...] CBC WITH DIFF • COMP. METABOLIC PANEL (56598) • AMYLASE • TROPONIN I • N-TERMINAL [...] She will be transferred down to [place] to the [place] team in the cardiology [...] on file Megan Rondon Jr., MD Clinical Senior Interior Designer [facility] Emergency Department [employer] is used frequently and may produce errors. Promptly contact for obvious discrepancies. Megan Rondon MD 11/21/232321 T [facility] - Ftcwri8781-56-47 11:34:02 Chief Complaint Patient presents with Follow-up Hospitalization Krissy Cannon LVN [facility]2024-01-24 16:08:34 Bryan spoke to patient and patient decided to leave AMA. AMA form signed by patient and attached to paperwork. Patient in stable condition with AMA. IV line removed and patient was assisted onto wheelchair and moved to the lobby. Patient called her prior to leaving room and will be picking up patient. ME Dumont [place] [id number] 15:56:21 Patient requesting to talk to provider - provider aware. Patient refused tylenol as she said medication does not improve her condition and she does not want to throw it up. Patient also refusing blood draw at this time. [place] [id number] 14:50:00 Patient's name and verified with patient. [...] (chronic obstructive pulmonary disease) Diverticulitis Epilepsy Hypertension AK (myocardial infarction) 07/20/2007 Slipped disc Stomach cancer Substance abuse Marijuana daily-for anxiety Allergies noted in chart. Vitals obtained. Assessment performed. IV in place and patent. Placed on continuous spo2/cardiac monitoring, HR 106 Bed low and locked, secured with two rails, call light within reach. Belongings at bedside. Patient aware of plan of care. Steph Dumont RN [place] [id number] 14:17:22 Patient had witnessed seizure like activity. Bryan, at bedside. Patient stopped seizure activity and had no postictal phase. Patient coherent, alert and oriented/answering all questions appropriately. LE MANAGER [facility] [id number] 13:45:33 Patient here for chest pain that started approximately 1 hour ago. Patient had seizure like activity in the vehicle while attempting to get patient out of the car, patient had no post ictal phase. Patient c/o substernal chest pain and jaw pain. ME Reaves RNSelect [facility] [id number] 13:42:00 [facility] Emergency Department Note Patient Name: Heather Turner Date of : 1970 53 year old female Treatment Room: RUST/RUST Primary Care Physician: PATIENT DOES NOT HAVE A PCP Patient Escorted by: Family [5] Mode of Arrival: Personal means [1] EMS Treatment Prior to ED Arrival: AIRCRAFT [employer] MECH[employer]IC treatment: None Travel and Exposure Screening: Symptoms [...] (chronic obstructive pulmonary disease) Diverticulitis Epilepsy Hypertension AK (myocardial infarction) 07/20/2007 Slipped disc Stomach cancer [...] 08/14/2015 Surgeon: Luis Jones Jr., ESTHER; Location: [facility] [place], [place] TONSILLECTOMY Review of Systems: Review of Systems [...] 0.01 - 0.07 10*3/uL COMP. METABOLIC PANEL (19049) - Abnormal NA 140 135 - 145 [...] Procedures Cbc with Diff Comp. Metabolic Panel (86868) Urinalysis Lactic Acid Whole Blood Troponin I [...] for follow-up Yehuda Arcos MD Specialty: PN-NEUROLOGY [facility] [address] [place] [id number] [facility]-Emergency Department Specialty: Emergency Medicine [address] [place] [id number] Instructions: If symptoms worsen as documented in the discharge Electronically signed by: Mj Bryan DO 08/12/23 1605 Mj Bryan DO 08/12/23 1605 [facility]
--- NOTE | 2025-04-10 14:50 | RAD REPORT ---
EXAMINATION: ONE VIEW CHEST XR CLINICAL INDICATION: Female, 55 years old.,DYSPNEA TECHNIQUE: Frontal chest projection is submitted. Examination is limited by patient positioning and t echnique. COMPARISON: 03/22/2025 FINDINGS: The lungs are well inflated and clear. No pneumothorax or sizable effusion. The heart is normal in s ize. Mediastinal contours are unremarkable. IMPRESSION: No acute intrathoracic abnormalities.
[2025-04-10 15:08] LABS: Absolute Lymphocytes (CBC) 1.5 K/uL (0.7-4.9); Hematocrit 35.0 % (36.0-45.0); Hemoglobin 11.4 g/dL (12.0-15.0); MCH 26.0 pg (27.0-35.0); MCHC 32.5 g/dL (32.0-36.0); MCV 80.0 fL (80-100); MPV 6.0 fL (7.6-11.3); Nucleated RBC Absolute Count 0.0 (0-0); Nucleated Red Blood Cells % 0.1 % (0-0); RBC Red Blood Cell Count 4.37 M/uL (3.86-4.86); White Blood Count 5.10 thou/uL (4.3-10.9)
[2025-04-10] MEDS ORDERED: ALBUTEROL 2.5 MG/3 ML NEB SOL ONE ×2 (15:20→16:21)
[2025-04-10] MEDS ORDERED: IPRATROPIUM BROM 0.5MG/2.5ML ONE (15:20)
[2025-04-10] MEDS ORDERED: KETOROLAC 30 MG/ML INJ ONE (15:32)
[2025-04-10] MEDS ORDERED: FENTANYL CITR 100 MCG/2 ML ONE (16:12)
[2025-04-10] MEDS ORDERED: ONDANSETRON 4 MG/2 ML VIAL ONE (16:21)
[2025-04-10] MEDS ORDERED: METHYLPREDNISOLONE 125 MG INJ ONE (16:21)
[2025-04-10 16:54] LABS: Anion Gap 7.7 mEq/L (5.0-15.0); BUN Blood Urea Nitrogen 8.0 mg/dL (7-18); Glucose Level 91.0 mg/dL (74-106); Magnesium 2.3 mg/dL (1.6-2.4); NT PRO-BNP 304.0 pg/mL (<125); Potassium 3.7 mEq/L (3.5-5.1); Troponin High Sensitivity 7.3 pg/mL (<58.9)
--- NOTE | 2025-04-10 17:04 | ER ---
Nurse's Notes [facility] Name: Heather Coon Age: 55 yrs Sex: Female : 1970 Arrival Date: 04/10/2025 Time: 13:25 Bed 19 Private MD: Diagnosis: COPD/ Chronic obstructive pulmonary disease with (acute) exacerbation Presentation: 04/10 13:35 Chief complaint: Patient states: PAIN TO HER LEGS AND BACK, SHORTNESS OF BREATH, LEGS dd2 ARE SWELLING AND CAN'T STAND. REPORTS SHE WAS AT [facility] LAST NIGHT AND IS WORSE TODAY. Coronavirus screen: At this time, the client does not indicate any symptoms associated with coronavirus-19. Ebola Screen: No symptoms or risks identified at this time. Initial Sepsis Screen: Does the patient meet any 2 criteria? No. Patient's initial sepsis screen is negative. Does the patient have a suspected source of infection? No. Patient's initial sepsis screen is negative. Risk Assessment: Do you want to hurt yourself or someone else? Patient reports no desire to harm self or others. Onset of symptoms was April 07, 2025. 13:35 Method Of Arrival: Wheelchair dd2 13:35 Acuity: ANDER 3 dd2 Triage Assessment: 13:38 General: Appears uncomfortable, Behavior is calm, cooperative, appropriate for age. dd2 Pain: Complains of pain in low back area, right leg and left leg. Respiratory: Reports shortness of breath at rest on exertion Airway is patent Respiratory effort is even, unlabored, Respiratory pattern is regular, symmetrical, Onset: The symptoms/episode began/occurred at an unknown time. the patient has mild shortness of breath. Musculoskeletal: Swelling present in right leg and left leg. Historical: - Allergies: 13:38 fluoxetine; dd2 13:38 Green Tea; dd2 13:38 Keppra; not an allergy; dd2 - PMHx: 13:38 Anxiety; Arthritis; Bipolar disorder; Cancer-Cervical; Chronic obstructive lung dd2 disease; Chronic pain; Congestive heart failure; Depression; Diverticulitis; Herniated Back Disc; Hypertension; intestinal mass; Myocardial infarction; pt reports hx of seizures; Spastic Muscles; stroke; - PSHx: 13:38 back surgery; cervical fusion; Cholecystectomy; foot; Tonsillectomy; dd2 - Immunization history:: Adult Immunizations unknown. - Infectious Disease History:: Denies. - Social history:: Smoking status: Patient reports the use of cigarette tobacco products, smokes one pack cigarettes per day. Screenin:35 [facility] ED Fall Risk Assessment (Adult) History of falling in the last 3 months, me1 including since admission No falls in past 3 months (0 pts) Confusion or Disorientation No (0 pts) Intoxicated or Sedated No (0 pts) Impaired Gait Yes (1 pt) Mobility Assist Device Used Yes (1 pt) Altered Elimination No (0 pt) Score/Fall Risk Level 0 - 2 = Low Risk Maintained a safe environment, Provided non-skid footwear, Hourly rounding (assess needs \T\ fall precautionary measures) done. Abuse screen: Denies threats or abuse. Nutritional screening: No deficits noted. Tuberculosis screening: No symptoms or risk factors identified. Assessment: 14:35 General: Appears uncomfortable, obese, well groomed, well developed, Behavior is calm, me1 cooperative, appropriate for age, Reports PAIN TO HER LEGS AND BACK, SHORTNESS OF BREATH, LEGS ARE SWELLING AND CAN'T STAND. REPORTS SHE WAS AT [facility] LAST NIGHT AND IS WORSE TODAY. Pain: Complains of pain in left leg and right leg and back and low back area Pain does not radiate. Pain currently is 9 out of 10 on a pain scale. Quality of pain is described as aching, Pain began gradually, Is continuous. Neuro: Level of Consciousness is awake, alert, obeys commands, Oriented to person, place, time, situation, Appropriate for age. Cardiovascular: Reports chest pain, shortness of breath, Patient's skin is warm and dry. Rhythm is regular. Respiratory: Reports shortness of breath at rest on exertion cough that is persistent Airway is patent Respiratory effort is even, unlabored, Respiratory pattern is regular, symmetrical, Breath sounds are clear bilaterally. GI: No signs and/or symptoms were reported involving the gastrointestinal system. : No signs and/or symptoms were reported regarding the genitourinary system. EENT: No signs and/or symptoms were reported regarding the EENT system. Derm: Skin is intact, is healthy with good turgor, Skin is pink, warm \T\ dry. Musculoskeletal: Circulation, motion, and sensation intact. Range of motion: Swelling present in right leg and left leg generalized weakness. Unable to stand without max assist x2 people. Vital Signs: 13:35 BP 108 / 86; Pulse 87; Resp 18; Temp 98.2; Pulse Ox 100% on R/A; Weight 86.18 kg; dd2 Height 5 ft. 3 in. ; Pain 9/10; 15:30 BP 136 / 75; Pulse 87; Resp 16; Pulse Ox 97% on R/A; me1 16:30 BP 101 / 53; Pulse 85; Resp 18; Temp 98.3; Pulse Ox 100% on Nebulizer Mask; me1 13:35 Body Mass Index 33.66 (86.18 kg, 160.02 cm) dd2 13:35 Pain Scale: Adult dd2 ED Course: 13:26 Patient arrived in ED. im 13:37 Chel Esteban FNP-C is [facility]. kb 13:37 Jones Parham MD is Attending Physician. kb 13:38 Triage completed. dd2 13:38 Arm band placed on right wrist. dd2 14:11 XRAY Chest (1 view) In Process Unspecified. EDMS 14:35 Patient has correct armband on for positive identification. Bed in low position. Call me1 light in reach. Side rails up X2. Provided Education on: POC. Verbalized understanding.. Client placed on continuous cardiac and pulse oximetry monitoring. NIBP monitoring applied. chiller tender on. Pulse ox on. NIBP on. 14:35 No provider procedures requiring assistance completed. me1 14:37 Frieda Boyd, RN is Primary Nurse. me1 15:02 Missed attempt(s): 22 gauge in right antecubital area. me1 15:02 Missed attempt(s): 22 gauge in right upper arm. me1 15:03 Initial lab(s) drawn, by me, sent to lab. EKG done, by ED staff, reviewed by Chel FRANCIS. Inserted saline lock: 24 gauge in left ,using aseptic technique. breast. 16:26 Accessed peripheral vein via ultrasound, utilizing dynamic ultrasound technique Blood cm10 collected. Clean \T\ dry. Dressing intact. Good blood return. Flushes easily. 20g right forearm. 17:10 IV discontinued, intact, bleeding controlled, No redness/swelling at site. Pressure me1 dressing applied. Administered Medications: 15:36 Drug: Albuterol Inhalation 2.5 mg Inhalation once Route: Inhalation; me1 16:29 Follow up: Response: No adverse reaction me1 15:36 Drug: Ipratropium Inhalation Aerosol 0.5 mg Inhalation once Route: Inhalation; me1 16:29 Follow up: Response: No adverse reaction me1 15:37 Drug: Ketorolac IVP 15 mg IVP once {Note: left breast.} Route: IVP; Site: Other; me1 16:29 Follow up: Response: No adverse reaction; Pain is unchanged, physician notified me1 16:16 Drug: fentaNYL (PF) IVP 25 mcg IVP once {Note: left breast.} Route: IVP; Site: Other; me1 17:10 Follow up: Response: No adverse reaction; Pain is decreased me1 16:30 Drug: Ondansetron IVP 4 mg IVP once; over 2 minutes Route: IVP; Site: right forearm; me1 17:10 Follow up: Response: No adverse reaction; Nausea is decreased me1 16:30 Drug: MethylPrednisoLONE IVP 125 mg IVP once Route: IVP; Site: right forearm; me1 17:10 Follow up: Response: No adverse reaction me1 16:30 Drug: Albuterol Inhalation 2.5 mg Inhalation once Route: Inhalation; me1 17:10 Follow up: Response: No adverse reaction me1 Medication: 14:35 VIS not applicable for this client. me1 Outcome: 17:04 Discharge ordered by . kb 17:11 Patient left the ED. me1 Signatures: Dispatcher [employer] EDMS Chel Esteban, UPSCALE SECURITY OFFICER-C UPSCALE SECURITY OFFICER-Estelle Lott Clarissa, RN RN cm10 Frieda Boyd RN RN me1 NATALIE MARTINEZ RN RN dd2 Corrections: (The following items were deleted from the chart) 15:49 13:35 Chief complaint: Patient states: PAIN TO HER LEGS AND BACK, SHORTNESS OF BREATH, me1 LEGS ARE SWELLING AND CAN'T STAND. REPORTS SHE WAS AT [facility] LAST NIGHT AND IS WORSE TODAY. dd2
--- NOTE | 2025-04-10 17:05 | EDPHYS ---
Physician Documentation [facility] Name: Heather Coon Age: 55 yrs Sex: Female : 1970 Arrival Date: 04/10/2025 Time: 13:25 Bed 19 Private MD: ED Physician Jones Parham HPI: 04/10 17:06 This 55 yrs old Female presents to ER via Wheelchair with complaints of Pain All Over, kb Shortness Of Breath. 17:06 Pt is a 55 year old female with a history of COPD and CHF who presents for shortness of kb breath and bilateral lower extremity edema that has been ongoing for some time. States she was at [facility] yesterday for the same symptoms. Reports chronic pain to back and legs.. Historical: - Allergies: 13:38 fluoxetine; dd2 13:38 Green Tea; dd2 13:38 Keppra; not an allergy; dd2 - PMHx: 13:38 Anxiety; Arthritis; Bipolar disorder; Cancer-Cervical; Chronic obstructive lung dd2 disease; Chronic pain; Congestive heart failure; Depression; Diverticulitis; Herniated Back Disc; Hypertension; intestinal mass; Myocardial infarction; pt reports hx of seizures; Spastic Muscles; stroke; - PSHx: 13:38 back surgery; cervical fusion; Cholecystectomy; foot; Tonsillectomy; dd2 - Immunization history:: Adult Immunizations unknown. - Infectious Disease History:: Denies. - Social history:: Smoking status: Patient reports the use of cigarette tobacco products, smokes one pack cigarettes per day. ROS: 14:47 Constitutional: As per HPI kb Exam: 14:50 Constitutional: This is a well developed, well nourished patient who is awake, alert, kb and in no acute distress. Head/Face: Normocephalic, atraumatic. ENT: Moist Mucous membranes Cardiovascular: Regular rate Skin: Warm, dry with normal turgor. Normal color. MS/ Extremity: Pulses equal, no cyanosis. Neurovascular intact. Full, normal range of motion. Neuro: Awake and alert, GCS 15, oriented to person, place, time, and situation. 14:50 Cardiovascular: Edema: pedal edema, that is mild, 14:50 Respiratory: the patient does not display signs of respiratory distress, Respirations: normal, Breath sounds: rhonchi, + upper airway congestion. 15:11 ECG was reviewed by the Attending Physician. kb Vital Signs: 13:35 BP 108 / 86; Pulse 87; Resp 18; Temp 98.2; Pulse Ox 100% on R/A; Weight 86.18 kg; dd2 Height 5 ft. 3 in. ; Pain 9/10; 15:30 BP 136 / 75; Pulse 87; Resp 16; Pulse Ox 97% on R/A; me1 16:30 BP 101 / 53; Pulse 85; Resp 18; Temp 98.3; Pulse Ox 100% on Nebulizer Mask; me1 13:35 Body Mass Index 33.66 (86.18 kg, 160.02 cm) dd2 13:35 Pain Scale: Adult dd2 MDM: 13:38 Medical Screening Exam initiated kb 15:11 Data reviewed: vital signs, nurses notes. kb 17:06 Differential diagnosis: CHF exacerbation, COPD exacerbation, pneumonia. Consideration kb of Admission/Observation Escalation of care including admission/observation considered. Admission considered but patient is feeling better and wanting to be discharged so that she can go smoke. Troponin negative, patient has no chest pain, oxygen saturation 97% on room air. Counseling: I had a detailed discussion with the patient and/or guardian regarding the historical points, exam findings, and any diagnostic results supporting the discharge/admit diagnosis, lab results, radiology results, the need for outpatient follow up, a family practitioner, to return to the emergency department if symptoms worsen or persist or if there are any questions or concerns that arise at home. 04/10 13:47 Order name: Basic Metabolic Panel; Complete Time: 16:54 kb 04/10 13:47 Order name: CBC with Diff; Complete Time: 15:10 kb 04/10 13:47 Order name: Magnesium; Complete Time: 16:54 kb 04/10 13:47 Order name: NT PRO-BNP; Complete Time: 16:54 kb 04/10 13:47 Order name: Troponin HS; Complete Time: 16:54 kb 04/10 13:47 Order name: XRAY Chest (1 view); Complete Time: 14:56 kb 04/10 13:47 Order name: EKG; Complete Time: 13:48 kb 04/10 13:47 Order name: Cardiac monitoring; Complete Time: 15:37 kb 04/10 13:47 Order name: EKG - Nurse/Tech; Complete Time: 15:37 kb 04/10 13:47 Order name: IV Saline Lock; Complete Time: 15:37 kb 04/10 13:47 Order name: Labs collected and sent; Complete Time: 15:37 kb 04/10 13:47 Order name: O2 Per Protocol; Complete Time: 15:37 kb 04/10 13:47 Order name: O2 Sat Monitoring; Complete Time: 15:37 kb 04/10 15:19 Order name: Labs - recollect needed: recollect green top; Complete Time: 15:26 bd 04/10 15:50 Order name: Labs - recollect needed: recollect green top; Complete Time: 16:29 bd EC:11 Rate is 89 beats/min. Rhythm is regular. QRS [place] is Normal. IN interval is normal at kb 156 msec. QRS interval is normal at 80 msec. QT interval is normal at 408 msec. Administered Medications: 15:36 Drug: Albuterol Inhalation 2.5 mg Inhalation once Route: Inhalation; me1 16:29 Follow up: Response: No adverse reaction me1 15:36 Drug: Ipratropium Inhalation Aerosol 0.5 mg Inhalation once Route: Inhalation; me1 16:29 Follow up: Response: No adverse reaction me1 15:37 Drug: Ketorolac IVP 15 mg IVP once {Note: left breast.} Route: IVP; Site: Other; me1 16:29 Follow up: Response: No adverse reaction; Pain is unchanged, physician notified me1 16:16 Drug: fentaNYL (PF) IVP 25 mcg IVP once {Note: left breast.} Route: IVP; Site: Other; me1 17:10 Follow up: Response: No adverse reaction; Pain is decreased me1 16:30 Drug: Ondansetron IVP 4 mg IVP once; over 2 minutes Route: IVP; Site: right forearm; me1 17:10 Follow up: Response: No adverse reaction; Nausea is decreased me1 16:30 Drug: MethylPrednisoLONE IVP 125 mg IVP once Route: IVP; Site: right forearm; me1 17:10 Follow up: Response: No adverse reaction me1 16:30 Drug: Albuterol Inhalation 2.5 mg Inhalation once Route: Inhalation; me1 17:10 Follow up: Response: No adverse reaction me1 Disposition: 17:15 Co-signature as Attending Physician, Jones Parham MD I reviewed the patient's care rn provided by the Advanced Practice Provider and agree with the diagnosis and treatment plan. Disposition Summary: 04/10/25 17:04 Discharge Ordered Notes: Location: Home kb Condition: Stable kb Diagnosis - COPD/ Chronic obstructive pulmonary disease with (acute) exacerbation kb Followup: kb - With: Emergency Department - When: As needed - Reason: Worsening of condition Followup: kb - With: Private Physician - When: 2 - 3 days - Reason: Recheck today's complaints, Continuance of care, Re-evaluation by your physician Discharge Instructions: - Discharge Summary Sheet kb - Chronic Obstructive Pulmonary Disease Exacerbation kb Forms: - Medication Reconciliation Form kb - Antibiotic Education kb - Prescription Opioid Use kb - Patient Portal Instructions kb - Leadership Thank You Letter kb Prescriptions: - Prednisone 20 mg Oral Tablet - take 1 tablet ORAL route once daily for 5 days; 5 tablet; Refills: 0, Product kb Selection Permitted Signatures: Dispatcher [employer] EDChel Lobo, DANIELA-C BENCH MOLDER APPRENTICE-Catherine Hsieh Roman, MD MD rn Eddleman, Michelle, RN RN me1 NATALIE MARTINEZ RN RN dd2
[2025-04-10 18:05] VITALS: BP 101/53; TEMP 98.3; O2SAT 100
== END 2025-04-10 17:11 | disposition home or self-care (01) ==
LOC: ER 13:25
DX: J44.1 Chronic obstructive pulmonary disease with (acute) exacerbation (principal); I50.9 Heart failure, unspecified; I10 Essential (primary) hypertension; F17.210 Nicotine dependence, cigarettes, uncomplicated
CPT/HCPCS: 93005; 85025; 80048; 36415; 83735; 84484; 83880; 71045; 99285; J7613 ×2; J7644; J3010; J2919; J2405